=== PATIENT | male | born 1955 | race Caucasian/White ===

== ENCOUNTER 2023-04-23 08:06 | Outpatient (OUT) | payer MEDICARE, SELFPAY ==
[2023-04-23 08:51] LABS: Albumin Level 3.4 g/dL (3.4-5.0); Anion Gap 11.4; BUN Creatinine Ratio 19.2; Calcium 8.5 mg/dL (8.5-10.1); Carbon Dioxide 32.9 mmol/L (21.0-32.0); Chloride 102 mmol/L (98-107); Estimated GFR (African America 54 (>=60); Estimated GFR (Non-African Ame 44 (>=60); Glucose 103 mg/dL (74-106); Phosphorus 3.6 mg/dL (2.6-4.7); Potassium 4.3 mmol/L (3.5-5.1); Sodium 142 mmol/L (136-145)
== END 2023-04-23 08:07 ==
LOC: LAB 08:11
PROVIDERS: PCP Family Medicine; Visit Provider Internal Medicine
DX: E11.22 Type 2 diabetes mellitus with diabetic chronic kidney disease (principal); I12.9 Hypertensive chronic kidney disease with stage 1 through stage 4 chronic kidney disease, or unspecified chronic kidney disease; N18.30 Chronic kidney disease, stage 3 unspecified; N25.81 Secondary hyperparathyroidism of renal origin; D72.829 Elevated white blood cell count, unspecified; E87.6 Hypokalemia
CPT/HCPCS: 36415; 80069

== ENCOUNTER 2023-04-23 17:59 | Outpatient (RCR) | payer MEDICARE, SELFPAY | END 2023-05-18 23:59 | disposition home or self-care (01) | LOC: MM 17:59 | PROVIDERS: PCP Family Medicine; Visit Provider Internal Medicine | DX: Z51.81 Encounter for therapeutic drug level monitoring (principal); Z79.01 Long term (current) use of anticoagulants; I48.91 Unspecified atrial fibrillation | CPT/HCPCS: 85610; G0463 ==

== ENCOUNTER 2023-05-14 09:41 | Outpatient (OUT) | payer MEDICARE, MEDICAID, SELFPAY ==
--- NOTE | 2023-05-14 09:56 | XR_ITS ---
The [address] [address] Patient Name: ADWOA PORTER MRN: [id number] date: 1955 Sex: M Assigned Patient Location: Current Patient Location: LAB Accession/Order Number: [id number] Exam Date: 05/14/2023 09:56 Report Date: 05/14/2023 14:06 At the request of: JERSON KAMINSKI Procedure: XR foot RT min 3V EXAM: XR foot RT min 3V HISTORY: RIGHT FOOT PAIN COMPARISON: 03/27/2023 TECHNIQUE: 3 views of the right foot were obtained. FINDINGS: Focal cortical bone erosion or destruction is seen involving the medial aspect of the proximal phalanx of the great toe distally. This was not apparent in the prior study. There is no apparent acute fracture or dislocation. There is mild narrowing of the interphalangeal joints at the great toe. The remainder the joint spaces are intact. Small osteophytes arise from the dorsal aspect of the talus and midfoot. A small osteophyte can be seen at the insertion site of the Achilles tendon. Some improvement of the soft tissue swelling of the distal foot is noted. Arteriovascular calcifications are seen in the ankle and foot, raising the possibility of diabetes. IMPRESSION: Focal cortical bone erosion or destruction is seen involving the distal aspect of the proximal phalanx of the great toe. This was not present in the prior study and is compatible with osteomyelitis. No foreign body is identified. Mild degenerative changes are present. Interval improvement of soft tissue swelling of the mid and distal foot. Arteriovascular calcifications are seen in the ankle and foot. Electronically authenticated by: JORGE SCOTT Date: 05/14/2023 14:06
== END 2023-05-14 09:42 | disposition home or self-care (01) ==
LOC: WC 09:41
PROVIDERS: PCP Internal Medicine; Visit Provider Physician Assistant
DX: E11.21 Type 2 diabetes mellitus with diabetic nephropathy (principal); L97.512 Non-pressure chronic ulcer of other part of right foot with fat layer exposed; S80.811A Abrasion, right lower leg, initial encounter; M79.671 Pain in right foot; M86.171 Other acute osteomyelitis, right ankle and foot; D64.9 Anemia, unspecified; I70.8 Atherosclerosis of other arteries; I42.9 Cardiomyopathy, unspecified; J44.9 Chronic obstructive pulmonary disease, unspecified; R60.1 Generalized edema; I10 Essential (primary) hypertension; E03.9 Hypothyroidism, unspecified; N17.9 Acute kidney failure, unspecified; G90.09 Other idiopathic peripheral autonomic neuropathy; I73.9 Peripheral vascular disease, unspecified; J96.11 Chronic respiratory failure with hypoxia
CPT/HCPCS: 73630; G0463

== ENCOUNTER 2023-05-14 11:42 | Outpatient (OUT) | payer MEDICARE, MEDICAID, SELFPAY ==
[2023-05-14 12:55] LABS: Anion Gap 12.8; BUN Creatinine Ratio 17.1; Calcium 8.6 mg/dL (8.5-10.1); Carbon Dioxide 28.9 mmol/L (21.0-32.0); Chloride 101 mmol/L (98-107); Estimated GFR (African America 47 (>=60); Estimated GFR (Non-African Ame 39 (>=60); Glucose 187 mg/dL (74-106); Potassium 3.7 mmol/L (3.5-5.1); Sodium 139 mmol/L (136-145)
== END 2023-05-14 11:43 | disposition home or self-care (01) ==
LOC: LAB 11:49
PROVIDERS: PCP Family Medicine; Visit Provider Physician Assistant
DX: M86.9 Osteomyelitis, unspecified (principal); L97.519 Non-pressure chronic ulcer of other part of right foot with unspecified severity
CPT/HCPCS: 36415; 80048

== ENCOUNTER 2023-05-23 15:36 | Outpatient (RCR) | payer MEDICARE, MEDICAID, SELFPAY | END 2023-06-18 16:48 | disposition home or self-care (01) | LOC: MM 15:36 | PROVIDERS: PCP Internal Medicine; Visit Provider Internal Medicine | DX: Z51.81 Encounter for therapeutic drug level monitoring (principal); Z79.01 Long term (current) use of anticoagulants; I48.91 Unspecified atrial fibrillation ==

== ENCOUNTER 2023-05-24 11:51 | Inpatient (IN) | payer MEDICARE, SELFPAY ==
[2023-05-24] VITALS (24 sets, daily range): BP systolic 97–122; BP diastolic 51–80; PULSE 76–97; RESP 16–48; TEMP 36.6–37; O2SAT 90–98; BMI 33.5; BMI 34.8
--- NOTE | 2023-05-24 12:13 | ECG_ITS ---
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
--- NOTE | 2023-05-24 12:13 | XR_ITS ---
The [address] [address] Patient Name: ADWOA PORTER MRN: [id number] date: 1955 Sex: M Assigned Patient Location: ER Current Patient Location: ER Accession/Order Number: [id number] Exam Date: 05/24/2023 12:22 Report Date: 05/24/2023 12:39 At the request of: PAMELA CHAVEZ Procedure: XR chest 1V EXAMINATION: XR chest 1V HISTORY: SOB ; shortness of breath COMPARISON: XR chest 03/26/2023 FINDINGS: LUNGS: Mild haziness within lung bases with indistinctness of the bronchovascular markings. VASCULATURE: No increased pulmonary vasculature. PLEURA: No pneumothorax, effusion, or pleural thickening. CARDIAC: Stable, borderline cardiomegaly. Stable cardiac pacer. MEDIASTINUM: No visible mass or adenopathy. BONES: No fracture or visible bone lesion. OTHER: Negative. IMPRESSION: 1. Mild bibasilar infiltrates versus atelectasis; similar to prior study. Electronically authenticated by: BIANCA STUART Date: 05/24/2023 12:39
--- NOTE | 2023-05-24 12:14 | ED_ITS ---
HPI - SOB/Dyspnea General Chief Complaint: Shortness of Breath/Dyspnea Stated Complaint: SHORTNESS OF BREATH Time Seen by Provider: 05/24/23 12:10 Source: patient Mode of arrival: Wheelchair Limitations: no limitations History of Present Illness HPI Narrative: 67-year-old male presents for shortness of breath and weight gain. He states he's put on about 20 pounds in the last week. He claims to be taking all his m edications. He thinks [place] for fluid. He is not complaining of chest pain or fever. No vomiting or diarrhea. Exertion makes his shortness of breath worse. Related Data Home Medications Medication Instructions Recorded Confirmed amoxicillin 875 mg-potassium tab 05/24/23 clavulanate 125 mg tablet aspirin 81 mg tablet,delayed 81 mg PO DAILY 05/24/23 05/24/23 release (Adult Low Dose Aspirin) atorvastatin 80 mg tablet mg 05/24/23 carvedilol 25 mg tablet mg 05/24/23 dapagliflozin 10 mg tablet mg 05/24/23 (Farxiga) digoxin 125 mcg (0.125 mg) tablet 05/24/23 furosemide 80 mg tablet mg 05/24/23 gabapentin 400 mg capsule mg 05/24/23 hydrocodone 5 mg-acetaminophen 325 tab 05/24/23 mg tablet isosorbide dinitrate 20 mg tablet mg 05/24/23 levothyroxine 50 mcg tablet mcg 05/24/23 spironolactone 25 mg tablet mg 05/24/23 Allergies Allergy/AdvReac Type Severity Reaction Status Date / Time No Known Drug Allergies Allergy Verified 05/24/23 12:06 Review of Systems ROS Narrative A ten point review of systems is negative except as noted above. Constitutional Reports: change in weight Cardiovascular Reports: swelling of feet/ankles and shortness of breath with exertion Respiratory Reports: shortness of breath Exam Narrative Exam Narrative: Nurses note and vital signs reviewed and patient is not hypoxic. General: The patient appears well and it is speaking in full sentences. Skin: Warm, dry, no pallor noted. There is no rash noted. Head: Normocephalic, atraumatic Eye: Normal conjunctiva, no drainage Ears, Nose, Mouth, and Throat: oral mucosa is moist. Nares patent. Cardiovascular: Regular Rate and Rhyth respiratory:patient is in no distress, breath sounds are distant bilaterally. Back: non-tender GI: nontender, abdominal wall is edematous Musculoskeletal: The patient has eyelid ankle edema. Neurological: A&O, normal speech Psychiatric: Cooperative Constitutional Vital Signs - 24 hr 05/24/23 12:06 05/24/23 12:18 05/24/23 12:46 Temperature 98.5 F Pulse Rate Pulse Rate [Monitor] 94 H Respiratory Rate 18 Blood Pressure Blood Pressure [Left Arm] 97/80 H Pulse Oximetry 98 94 L 96 Oxygen Delivery Method Room Air Room Air Nasal Cannula Oxygen Delivery Flow Rate 3 05/24/23 11:59 05/24/23 12:00 05/24/23 12:38 Temperature Pulse Rate 85 85 Pulse Rate [Monitor] Respiratory Rate 22 48 H 18 Blood Pressure 97/80 H 111/68 Blood Pressure [Left Arm] Pulse Oximetry 91 L 97 Oxygen Delivery Method Oxygen Delivery Flow Rate 05/24/23 12:38 05/24/23 13:01 05/24/23 13:30 Temperature Pulse Rate 85 85 85 Pulse Rate [Monitor] Respiratory Rate 25 H 21 16 Blood Pressure 111/68 120/51 H 116/70 Blood Pressure [Left Arm] Pulse Oximetry 94 L 97 95 Oxygen Delivery Method Oxygen Delivery Flow Rate Course Vital Signs Vital signs: Vital Signs Pulse Rate 85 05/24/23 11:59 Respiratory Rate 22 05/24/23 11:59 Pulse Oximetry 91 L 05/24/23 11:59 Temperature 98.5 F 05/24/23 12:06 Pulse Rate 85 05/24/23 13:30 Respiratory Rate 16 05/24/23 13:30 Blood Pressure 116/70 05/24/23 13:30 Pulse Oximetry 95 05/24/23 13:30 Oxygen Delivery Method Nasal Cannula 05/24/23 12:46 Oxygen Delivery Flow Rate 3 05/24/23 12:46 MDM - SOB/Dyspnea MDM Narrative Medical decision making narrative: the patient reports a 20 pound weight gain but the chest x-ray does not show congestive heart failure. His BUN and creatinine are elevated above the baseline creatinine of 2.75 today. These findings are inconsistent. He'll be admitted and the case is discussed with the admitting physician, Dr. Mckenna. Findings are also discussed with the patient. chest x-ray per radiologist suggested atelectasis versus infiltrates but I do not suspect pneumonia in this patient clinically. Differential Diagnosis Differential diagnosis: Likely acute exacerbation of chronic obstructive airways disease, congestive heart failure and community acquired pneumonia Lab Data Attestation: I reviewed the patient's lab results. Labs: Lab Results 05/24/23 Range/Units 12:16 WBC 12.0 H (4.0-11.0) 10^3/uL RBC 4.37 L (4.70-6.10) 10^6/uL Hgb 12.7 L (14.0-18.0) g/dL Hct 38.4 L (42.0-54.0) % MCV 87.9 (80.0-94.0) fL MCH 29.1 (25.9-34.0) pg MCHC 33.1 (29.9-35.2) g/dL RDW 15.8 H (11.0-15.0) % Plt Count 204 (150-450) 10^3/uL MPV 10.0 (9.5-13.5) fL Neut % (Auto) 84.1 H (43.0-75.0) % Lymph % (Auto) 8.6 L (20.5-60.0) % [place] % (Auto) 4.4 (1.7-12.0) % Eos % (Auto) 2.4 (0.9-7.0) % Baso % (Auto) 0.2 (0.2-2.0) % Neut # (Auto) 10.1 H (1.4-6.5) 10^3/uL Lymph # (Auto) 1.0 L (1.2-3.8) 10^3/uL [place] # (Auto) 0.5 (0.3-0.8) 10^3/uL Eos # (Auto) 0.3 (0.0-0.7) 10^3/uL Baso # (Auto) 0.0 (0.0-0.1) 10^3/uL Abs Immat Gran (auto) 0.04 H (0.00-0.03) 10^3/uL Imm/Tot Granulo (auto) 0.3 (0.0-0.5) % Sodium 136 (136-145) mmol/L Potassium 3.9 (3.5-5.1) mmol/L Chloride 99 (98-107) mmol/L Carbon Dioxide 26.5 (21.0-32.0) mmol/L Anion Gap 14.4 BUN 38.0 H (7.0-18.0) mg/dL Creatinine 2.75 H (0.70-1.30) mg/dL Est GFR ( Amer) 28 L (>=60) Est GFR (Non-Af Amer) 23 L (>=60) BUN/Creatinine Ratio 13.8 Glucose 163 H (74-106) mg/dL Calcium 8.1 L (8.5-10.1) mg/dL Troponin I High Sens 26.8 (4.0-76.1) pg/mL NT-Pro-B Natriuret Pep 54770.0 H* (<=900.0) pg/mL ECG Data Attestation: I personally reviewed and interpreted this ECG as follows: ( EKG on my interpretation shows a rate of 85 and no acute findings) Discharge Plan Discharge Chief Complaint: Shortness of Breath/Dyspnea Clinical Impression: Acute kidney injury Patient Disposition: Admitted As Inpatient Time of Disposition Decision: 14:14 Condition: Good
[2023-05-24 12:30] LABS: Basophils Percent Auto 0.2 % (0.2-2.0); Eosinophils Absolute Auto 0.3 10^3/uL (0.0-0.7); Eosinophils Percent Auto 2.4 % (0.9-7.0); Hematocrit 38.4 % (42.0-54.0); Hemoglobin 12.7 g/dL (14.0-18.0); Immature Granulocytes Abs Auto 0.04 10^3/uL (0.00-0.03); Immature Granulocytes Pct Auto 0.3 % (0.0-0.5); Lymphocytes Percent Auto 8.6 % (20.5-60.0); Mean Corpuscular HGB Conc 33.1 g/dL (29.9-35.2); Mean Corpuscular Hemoglobin 29.1 pg (25.9-34.0); Mean Corpuscular Volume 87.9 fL (80.0-94.0); Monocytes Absolute Auto 0.5 10^3/uL (0.3-0.8); Monocytes Percent Auto 4.4 % (1.7-12.0); Neutrophils Absolute Auto 10.1 10^3/uL (1.4-6.5); Neutrophils Percent Auto 84.1 % (43.0-75.0); Platelet Count 204 10^3/uL (150-450); Red Blood Count 4.37 10^6/uL (4.70-6.10); Red Cell Distribution Width 15.8 % (11.0-15.0)
[2023-05-24 12:51] LABS: Anion Gap 14.4; BUN Creatinine Ratio 13.8; Calcium 8.1 mg/dL (8.5-10.1); Carbon Dioxide 26.5 mmol/L (21.0-32.0); Chloride 99 mmol/L (98-107); Estimated GFR (African America 28 (>=60); Estimated GFR (Non-African Ame 23 (>=60); Glucose 163 mg/dL (74-106); Potassium 3.9 mmol/L (3.5-5.1); Sodium 136 mmol/L (136-145); Troponin I High Sensitivity 26.8 pg/mL (4.0-76.1)
[2023-05-24 14:48] LABS: Digoxin 1.1 ng/mL (0.9-2.0)
[2023-05-24] MEDS: HYDROCODONE/ACETAMINOPHEN 5-325 MG TABLET 1 TAB PO (17:45)
[2023-05-24] MEDS: FUROSEMIDE 40 MG/4 ML VIAL IVP (17:45)
[2023-05-24] MEDS: ENOXAPARIN SODIUM 40 MG/0.4 ML SYRINGE SUBQ (17:45)
[2023-05-24] MEDS: GABAPENTIN 400 MG CAPSULE PO (17:50)
[2023-05-24] MEDS: CARVEDILOL 25 MG TABLET PO (17:50)
[2023-05-24 18:43] LABS: Bilirubin Urine NEGATIVE (NEGATIVE); Blood Urine NEGATIVE (NEGATIVE); Clarity Urine CLEAR (CLEAR); Color Urine YELLOW (YELLOW); Glucose Urine UA 500 mg/dL (NEGATIVE); Ketones Urine NEGATIVE (NEGATIVE); Leukocyte Esterase Urine NEGATIVE (NEGATIVE); Nitrite Urine NEGATIVE (NEGATIVE); Protein Urine NEGATIVE (NEG/TRACE); Urobilinogen Urine 0.2 EU/dL (0.2-1.0)
[2023-05-24 18:45] LABS: Urine Microscopic Indicated NO
--- NOTE | 2023-05-24 21:24 | RESP.RT ---
Sp02 97% on 4L nasal cannula. Decreased down to 3L. Pt wears 3L at home.
[2023-05-24] MEDS: ATORVASTATIN CALCIUM 40 MG TABLET 80 MG PO (21:28)
[2023-05-24 22:22] LABS: Glucometer 149 mg/dL (74-106)
[2023-05-25] VITALS (18 sets, daily range): BP systolic 111–135; BP diastolic 69–86; PULSE 79–100; RESP 18–20; TEMP 36.1–36.6; O2SAT 92–98; BMI 35.2
[2023-05-25] MEDS: HYDROCODONE/ACETAMINOPHEN 5-325 MG TABLET 1 TAB PO ×3 (01:26→21:22)
[2023-05-25 05:32] LABS: Basophils Absolute Auto 0.1 10^3/uL (0.0-0.1); Basophils Percent Auto 0.6 % (0.2-2.0); Eosinophils Absolute Auto 0.4 10^3/uL (0.0-0.7); Eosinophils Percent Auto 3.1 % (0.9-7.0); Hematocrit 40.1 % (42.0-54.0); Hemoglobin 12.6 g/dL (14.0-18.0); Immature Granulocytes Abs Auto 0.06 10^3/uL (0.00-0.03); Immature Granulocytes Pct Auto 0.5 % (0.0-0.5); Lymphocytes Percent Auto 16.7 % (20.5-60.0); Mean Corpuscular HGB Conc 31.4 g/dL (29.9-35.2); Mean Corpuscular Hemoglobin 28.1 pg (25.9-34.0); Mean Corpuscular Volume 89.3 fL (80.0-94.0); Mean Platelet Volume 9.7 fL (9.5-13.5); Monocytes Absolute Auto 0.9 10^3/uL (0.3-0.8); Monocytes Percent Auto 7.3 % (1.7-12.0); Neutrophils Absolute Auto 8.5 10^3/uL (1.4-6.5); Neutrophils Percent Auto 71.8 % (43.0-75.0); Platelet Count 201 10^3/uL (150-450); Red Blood Count 4.49 10^6/uL (4.70-6.10); Red Cell Distribution Width 15.9 % (11.0-15.0); White Blood Count 11.8 10^3/uL (4.0-11.0)
[2023-05-25 05:49] LABS: Anion Gap 10.7; BUN Creatinine Ratio 17.9; Calcium 8.4 mg/dL (8.5-10.1); Carbon Dioxide 30.9 mmol/L (21.0-32.0); Chloride 97 mmol/L (98-107); Estimated GFR (African America 34 (>=60); Estimated GFR (Non-African Ame 28 (>=60); Glucose 116 mg/dL (74-106); Potassium 3.6 mmol/L (3.5-5.1); Sodium 135 mmol/L (136-145)
--- NOTE | 2023-05-25 06:00 | XR_ITS ---
The [address] [address] Patient Name: ADWOA PORTER MRN: [id number] date: 1955 Sex: M Assigned Patient Location: Current Patient Location: Accession/Order Number: [id number] Exam Date: 05/25/2023 06:10 Report Date: 05/25/2023 08:11 At the request of: SAMY CRAFT Procedure: XR chest 2V PROCEDURE: XR chest 2V DATE: 05/25/2023 5:10 AM CDT COMPARISONS: 05/24/2023 CLINICAL INDICATION: 67 years Male chf FINDINGS: The heart is moderately enlarged. Electronic cardiac device is in stable position. There is slight diffuse increased interstitial markings throughout all lung lyles similar to previous exam. Some of this could represent some scattered chronic lung changes. Some of this likely represents some interstitial fluid due to congestion. There is no definite evidence of pleural effusion on today's chest radiograph. There is no evidence of pneumothorax IMPRESSION: Chest shows findings suggestive of mild congestive changes Electronically authenticated by: ROMAN LEON Date: 05/25/2023 08:11
[2023-05-25] MEDS: LEVOTHYROXINE SODIUM 25 MCG TABLET 50 MCG PO (06:24)
[2023-05-25] MEDS: FUROSEMIDE 40 MG/4 ML VIAL IVP ×2 (06:25→18:07)
[2023-05-25] MEDS: GABAPENTIN 400 MG CAPSULE PO ×2 (06:25→18:07)
[2023-05-25] MEDS: CANAGLIFLOZIN 100 MG TABLET 300 MG PO (08:41)
[2023-05-25] MEDS: SPIRONOLACTONE 25 MG TABLET PO (08:41)
[2023-05-25] MEDS: CARVEDILOL 25 MG TABLET PO ×2 (08:41→16:37)
[2023-05-25] MEDS: ISOSORBIDE DINITRATE 20 MG TABLET PO ×2 (08:42→16:37)
[2023-05-25] MEDS: ASPIRIN 81 MG TABLET.DR PO (08:42)
--- NOTE | 2023-05-25 08:50 | PC.NURSE ---
WOUND CONSULT: Patient known to wound center seen today inpatient for multiple wounds. Unable to take photos today due to equipment/software issues. Patient has healing areas on right great toe and right second toe that are treated with betadine and gauze. Continue this treatment plan until next wound care visit. Patient's right skin has improved greatly since last outpatient visit. Almost completely epithelialized, will continue to cover with xeroform daily until next wound care visit. Patient reports left hand wounds are from toribio sustained from grabbing a cast iron skillet that was hot. Patient has open wound on left index finger that measures 3.8cmx1.8cm. Dry, pink wound bed. Has small open scabbed area on left thumb and left 3rd finger. All areas treated with medihoney gel and bandaids. Instructed patient to keep hands clean. If after washing hands bandages become wet, instructed to change them with dry dressings. Reported to DEE Boles. She will place orders in chart. Updated patient that outpatient appointment is May 29 @ 9:30AM
--- NOTE | 2023-05-25 09:31 | SWNOTE1 ---
SW met with pt to discuss dc needs. Pt lives at home with his girlfriend. He uses a canes to get around. Pt is current with [facility] , the nurse comes in to check on his legs. Pt does wear a home cpap at night, but does not wear home oxygen. At this time pt denies any concerns/needs for discharge. SW to follow as needed.
--- NOTE | 2023-05-25 11:28 | CM.NOTE ---
Rounds made with Dr. Mckenna, no discharge today. Pt has [facility] and is current with them. PT and OT to evaluate pt today.
--- NOTE | 2023-05-25 11:53 | PM.HP ---
H&P: HPI History of Present Illness Chief complaint: SOB Narrative: 67 y/o male to ER with SOB. History of CHF and EF in December 2022 was 15%. Reports taking all medication daily. Increased SOB over past few days. Weighed self and up 20 pounds in past few weeks. Increased edema in legs. Continued SOB and to ER. BNP elevated and labs show SHIRA. Chest x-ray negative. Admitted for treatment. Started IV lasix and resumed home medication. Feels better overnight and less SOB. Review of Systems ROS Constitutional Denies: fever, chills or night sweats Cardiovascular Reports: edema; Denies: chest pain or palpitations Respiratory Reports: shortness of breath; Denies: cough or wheezing Gastrointestinal Denies: abdominal pain, nausea, vomiting or diarrhea Genitourinary Denies: painful urination [facility] Medical History (Updated 05/25/23 @ 08:55 by Lowell Mckenna MD) Meds Home Medications and Allergies Home Medications Medication Instructions Recorded Confirmed Type amoxicillin 875 mg-potassium 1 tab PO Q12H 05/24/23 05/24/23 History clavulanate 125 mg tablet aspirin 81 mg tablet,delayed 81 mg PO DAILY 05/24/23 05/24/23 History release (Adult Low Dose Aspirin) atorvastatin 80 mg tablet 80 mg PO .QD 05/24/23 05/24/23 History carvedilol 25 mg tablet 25 mg PO Q12H 05/24/23 05/24/23 History dapagliflozin 10 mg tablet 10 mg PO DAILY 05/24/23 05/24/23 History (Farxiga) digoxin 125 mcg (0.125 mg) tablet 0.125 mg PO QDAY 05/24/23 05/24/23 History furosemide 80 mg tablet 80 mg PO QAM 05/24/23 05/24/23 History gabapentin 400 mg capsule 400 mg PO Q12H 05/24/23 05/24/23 History hydrocodone 5 mg-acetaminophen 325 1 tab PO Q8H PRN pain, moderate 05/24/23 05/24/23 History mg tablet isosorbide dinitrate 20 mg tablet 20 mg PO BIDWM 05/24/23 05/24/23 History levothyroxine 50 mcg tablet 50 mcg PO .ACB 05/24/23 05/24/23 History spironolactone 25 mg tablet 25 mg PO QAM 05/24/23 05/24/23 History Allergies Allergy/AdvReac Type Severity Reaction Status Date / Time No Known Drug Allergies Allergy Verified 05/24/23 12:06 Exam Constitutional Vital Signs - 24 hr 05/24/23 12:06 05/24/23 12:18 05/24/23 12:46 Temperature 98.5 F Pulse Rate Pulse Rate [Monitor] 94 H Respiratory Rate 18 Blood Pressure Blood Pressure [Left Arm] 97/80 H Pulse Oximetry 98 94 L 96 Oxygen Delivery Method Room Air Room Air Nasal Cannula Oxygen Delivery Flow Rate 3 05/24/23 11:59 05/24/23 12:00 05/24/23 12:38 Temperature Pulse Rate 85 85 Pulse Rate [Monitor] Respiratory Rate 22 48 H 18 Blood Pressure 97/80 H 111/68 Blood Pressure [Left Arm] Pulse Oximetry 91 L 97 Oxygen Delivery Method Oxygen Delivery Flow Rate 05/24/23 12:38 05/24/23 13:01 05/24/23 13:30 Temperature Pulse Rate 85 85 85 Pulse Rate [Monitor] Respiratory Rate 25 H 21 16 Blood Pressure 111/68 120/51 H 116/70 Blood Pressure [Left Arm] Pulse Oximetry 94 L 97 95 Oxygen Delivery Method Oxygen Delivery Flow Rate 05/24/23 13:30 05/24/23 14:00 05/24/23 14:30 Temperature Pulse Rate 85 87 Pulse Rate [Monitor] Respiratory Rate 21 18 Blood Pressure 116/70 112/65 122/80 H Blood Pressure [Left Arm] Pulse Oximetry 95 Oxygen Delivery Method Oxygen Delivery Flow Rate 05/24/23 14:39 05/24/23 14:40 05/24/23 14:53 Temperature 97.9 F Pulse Rate 76 87 85 Pulse Rate [Monitor] Respiratory Rate 44 H 32 H 18 Blood Pressure Blood Pressure [Left Arm] 108/60 Pulse Oximetry 94 L Oxygen Delivery Method Nasal Cannula Oxygen Delivery Flow Rate 4 05/24/23 14:53 05/24/23 14:50 05/24/23 15:00 Temperature Pulse Rate 97 H 85 Pulse Rate [Monitor] 85 Respiratory Rate 18 19 18 Blood Pressure Blood Pressure [Left Arm] Pulse Oximetry Oxygen Delivery Method Oxygen Delivery Flow Rate 05/24/23 15:10 05/24/23 15:53 05/24/23 17:45 Temperature Pulse Rate 85 85 Pulse Rate [Monitor] Respiratory Rate 20 Blood Pressure 115/73 Blood Pressure [Left Arm] Pulse Oximetry Oxygen Delivery Method Oxygen Delivery Flow Rate 05/24/23 17:52 05/24/23 20:08 05/24/23 21:10 Temperature Pulse Rate 85 85 Pulse Rate [Monitor] Respiratory Rate Blood Pressure Blood Pressure [Left Arm] Pulse Oximetry 97 Oxygen Delivery Method Nasal Cannula Oxygen Delivery Flow Rate 4 05/24/23 21:33 05/24/23 22:07 05/25/23 00:00 Temperature 98.6 F Pulse Rate 96 H 86 85 Pulse Rate [Monitor] Respiratory Rate 20 Blood Pressure Blood Pressure [Left Arm] 114/70 Pulse Oximetry 90 L Oxygen Delivery Method Nasal Cannula Oxygen Delivery Flow Rate 3 05/25/23 02:03 05/25/23 04:28 05/25/23 04:41 Temperature 97.3 F L Pulse Rate 85 86 Pulse Rate [Monitor] Respiratory Rate 20 Blood Pressure Blood Pressure [Left Arm] 126/81 H Pulse Oximetry 98 93 L Oxygen Delivery Method Nasal Cannula Nasal Cannula Oxygen Delivery Flow Rate 3 3 05/25/23 05:09 05/25/23 05:40 05/25/23 08:08 Temperature Pulse Rate 85 85 85 Pulse Rate [Monitor] Respiratory Rate Blood Pressure Blood Pressure [Left Arm] Pulse Oximetry Oxygen Delivery Method Oxygen Delivery Flow Rate 05/25/23 08:47 05/25/23 09:59 05/25/23 10:24 Temperature Pulse Rate 79 Pulse Rate [Monitor] Respiratory Rate Blood Pressure Blood Pressure [Left Arm] Pulse Oximetry 94 L 92 L Oxygen Delivery Method Room Air Nasal Cannula Oxygen Delivery Flow Rate 3 05/25/23 11:42 Temperature Pulse Rate 85 Pulse Rate [Monitor] Respiratory Rate Blood Pressure Blood Pressure [Left Arm] Pulse Oximetry Oxygen Delivery Method Oxygen Delivery Flow Rate Documenting provider has reviewed patient's vital signs: yes Common normals: no apparent distress, oriented x3 and alert HENMT Common normals: normocephalic Eye Common normals: PERRL and EOMs intact bilaterally Respiratory Common normals: clear to auscultation bilaterally Cardio Common normals: regular rate, regular rhythm, no gallops, no murmurs and no rub GI Common normals: Normal to inspection, nondistended, normoactive bowel sounds present and non-tender Extremity General: edema (1+bipedal edema) Results Labs Labs: Short CBC 05/24/23 05/25/23 Range/Units 12:16 04:50 WBC 12.0 H 11.8 H (4.0-11.0) 10^3/uL Hgb 12.7 L 12.6 L (14.0-18.0) g/dL Hct 38.4 L 40.1 L (42.0-54.0) % Plt Count 204 201 (150-450) 10^3/uL BMP 05/24/23 05/25/23 12:16 04:50 Sodium 136 135 L Potassium 3.9 3.6 Chloride 99 97 L Carbon Dioxide 26.5 30.9 BUN 38.0 H 42.0 H Creatinine 2.75 H 2.35 H Glucose 163 H 116 H Calcium 8.1 L 8.4 L Urine 05/24/23 Range/Units 18:30 Urine Color Yellow (YELLOW) Urine Clarity Clear (CLEAR) Urine pH 6.0 (5.0-9.0) Ur Specific [place] 1.020 (1.005-1.025) Urine Protein Negative (NEG/TRACE) mg/dL Urine Glucose (UA) 500 A (NEGATIVE) mg/dL Imaging Chest x-ray: Attestation: I have reviewed the pertinent imaging results. Assessment and Plan Assessment and Plan (1) Acute on chronic HFrEF (heart failure with reduced ejection fraction): (2) Acute kidney injury: (3) Type 2 diabetes mellitus with hyperglycemia: (4) Benign essential hypertension: (5) COPD (chronic obstructive pulmonary disease): (6) Paroxysmal atrial fibrillation: (7) CAD (coronary artery disease): (8) Anemia in chronic kidney disease: Plan Presented with weight gain and fluid overload. Continue IV lasix. Resume home medication. Repeat echo to assess EF. Consult cardiology. Start PT/OT for weakness. Will need 2-3 days in the hospital.
--- NOTE | 2023-05-25 11:54 | CM.NOTE ---
Important Message From Medicare discussed with pt, pt verbalizes understanding and signs paper. Original given to pt and copy placed on pt's chart.
[2023-05-25 12:50] LABS: SARS-CoV-2 Ag NEGATIVE (NEGATIVE)
[2023-05-25 14:26] LABS: SARS-CoV-2 NAA NOT DETECTED (NOT DETECTE)
[2023-05-25] MEDS: ENOXAPARIN SODIUM 40 MG/0.4 ML SYRINGE SUBQ (16:37)
--- NOTE | 2023-05-25 17:25 | CA_ITS ---
Patient: ADWOA PORTER Exam Date: 05/25/2023 : 1955 Gender:M Ordering : DR Lowell Mckenna . Admission #: [id number] Family : DR. JORGE ARROYO D.P.Anastacia Order #: [id number] CLICK HERE TO VIEW EXAM ECHOCARDIOGRAM REPORT PROCEDURE: CA ECHO LIMITED INDICATIONS: Cogestive heart failure, elevated BNP, AICD, hypertension, diabetes, COPD COMPARISON: None. DESCRIPTION: Limited ECHOCARDIOGRAM Real-time transthoracic echocardiography with 2D and M-mode performed. QUALITY: Technical quality was good. Limited echocardiogram per physician order. LEFT VENTRICLE: Moderate dilatation. Normal left ventricular wall thickness. Systolic function is severely reduced. LV EF: Severely reduced left ventricular ejection fraction, (10-15%). DIASTOLIC: ATRIAL SEPTUM: LEFT ATRIUM: Severe dilatation. RIGHT ATRIUM: Severe dilatation. RIGHT VENTRICLE: Moderate dilatation. Moderately reduced systolic function. Pacer wire present. TRICUSPID VALVE: Normal mobility and thickness. MITRAL VALVE: Mildly thickened with normal mobility. Mild mitral annular calcification. AORTIC VALVE: Normal trileaflet appearance. Normal leaflet mobility. AORTIC ROOT: Normal diameter [3.4 cm] and appearance. The ascending aorta is normal in size and measures 3.2 cm. PULMONIC VALVE: Normal thickness and mobility. PERICARDIUM: IVC: IVC is dilated (3.2 cm) with no collapse. PLEURA: CONCLUSION: 1. Moderately dilated left ventricle with severely reduced systolic function. LVEF is estimated at 10 to 15%. 2. Moderately dilated right ventricle with moderately reduced systolic function. 3. Severe biatrial dilatation. 4. Limited study performed with no Doppler interrogation as requested. Adult Echocardiography Procedure Report Left Ventricle LVEDD (3.7 - 5.6 cm): 6.54 cm LVESD (2.2 - 4.0 cm): 6.25 cm LVIVS thickness (0.6 - 1.2 cm): 0.78 cm LVPW thickness (0.5 - 1.0 cm): 0.85 cm LVOT Diameter 2.09 cm Left Atrium Left Atrium Systolic Dimension: 5.36 cm Mitral Valve Right Ventricle Aorta AO Root Diam: 3.40 cm Ascending Ao Diam: 3.19 cm Aortic Valve Tricuspid Valve Pulmonic Valve Right Atrium Dictated by: Shiv Stout M.D. on 05/25/2023 at 19:05 Approved by: Shiv Stout M.D. on 05/25/2023 at 19:08
[2023-05-25] MEDS: METOLAZONE 2.5 MG TABLET PO (18:07)
--- NOTE | 2023-05-25 18:30 | US_ITS ---
The [address] [address] Patient Name: ADWOA PORTER MRN: [id number] date: 1955 Sex: M Assigned Patient Location: MS Current Patient Location: MS Accession/Order Number: [id number] Exam Date: 05/25/2023 18:30 Report Date: 05/26/2023 01:35 At the request of: JOSE GALEANA Procedure: US venous doppler LE LT EXAMINATION: US venous doppler LE LT HISTORY: r/o DVT ; left leg swelling for 2 weeks COMPARISON: Ultrasound venous Doppler lower extremity left FINDINGS: REGION: Left leg THROMBI: None within deep system. COMPRESSIBILITY: Normal compressibility of deep system. FLOW: Normal waveform and antegrade flow between 5 and 20 cm/s. OTHER: Chronic occlusive thrombus within small saphenous vein. IMPRESSION: 1. No deep vein thrombus within the left lower extremity. 2. Grossly stable chronic superficial thrombus within small saphenous vein. Electronically authenticated by: BIANCA STUART Date: 05/26/2023 01:35
[2023-05-25 20:40] LABS: Glucometer 169 mg/dL (74-106)
[2023-05-25] MEDS: ATORVASTATIN CALCIUM 40 MG TABLET 80 MG PO (21:22)
[2023-05-26] VITALS (18 sets, daily range): BP systolic 116–142; BP diastolic 74–98; PULSE 83–99; RESP 16–20; TEMP 36.5–36.6; O2SAT 92–98
[2023-05-26] MEDS: FUROSEMIDE 40 MG/4 ML VIAL IVP ×3 (01:04→22:22)
[2023-05-26 06:10] LABS: Basophils Absolute Auto 0.1 10^3/uL (0.0-0.1); Basophils Percent Auto 0.6 % (0.2-2.0); Eosinophils Absolute Auto 0.4 10^3/uL (0.0-0.7); Eosinophils Percent Auto 3.6 % (0.9-7.0); Hematocrit 41.7 % (42.0-54.0); Hemoglobin 13.1 g/dL (14.0-18.0); Immature Granulocytes Abs Auto 0.05 10^3/uL (0.00-0.03); Immature Granulocytes Pct Auto 0.5 % (0.0-0.5); Lymphocytes Absolute Auto 1.8 10^3/uL (1.2-3.8); Mean Corpuscular HGB Conc 31.4 g/dL (29.9-35.2); Mean Corpuscular Hemoglobin 28.4 pg (25.9-34.0); Mean Corpuscular Volume 90.3 fL (80.0-94.0); Mean Platelet Volume 10.6 fL (9.5-13.5); Monocytes Absolute Auto 0.7 10^3/uL (0.3-0.8); Monocytes Percent Auto 6.7 % (1.7-12.0); Neutrophils Absolute Auto 7.4 10^3/uL (1.4-6.5); Neutrophils Percent Auto 71.6 % (43.0-75.0); Platelet Count 204 10^3/uL (150-450); Red Blood Count 4.62 10^6/uL (4.70-6.10); Red Cell Distribution Width 15.9 % (11.0-15.0); White Blood Count 10.3 10^3/uL (4.0-11.0)
[2023-05-26 06:25] LABS: Anion Gap 12.5; BUN Creatinine Ratio 16.4; Carbon Dioxide 28.8 mmol/L (21.0-32.0); Chloride 98 mmol/L (98-107); Estimated GFR (African America 31 (>=60); Estimated GFR (Non-African Ame 26 (>=60); Glucose 151 mg/dL (74-106); Potassium 3.3 mmol/L (3.5-5.1); Sodium 136 mmol/L (136-145)
[2023-05-26 06:26] LABS: Calcium 8.4 mg/dL (8.5-10.1)
[2023-05-26] MEDS: GABAPENTIN 400 MG CAPSULE PO ×2 (06:32→17:59)
[2023-05-26] MEDS: LEVOTHYROXINE SODIUM 25 MCG TABLET 50 MCG PO (06:32)
[2023-05-26] MEDS: CANAGLIFLOZIN 100 MG TABLET 300 MG PO (09:03)
[2023-05-26] MEDS: ASPIRIN 81 MG TABLET.DR PO (09:05)
[2023-05-26] MEDS: ISOSORBIDE DINITRATE 20 MG TABLET PO ×2 (09:05→16:12)
[2023-05-26] MEDS: SPIRONOLACTONE 25 MG TABLET PO (09:07)
[2023-05-26] MEDS: POTASSIUM CHLORIDE 10 MEQ ER TABLET PO ×2 (09:07→16:12)
[2023-05-26] MEDS: CARVEDILOL 25 MG TABLET PO ×2 (09:07→16:12)
--- NOTE | 2023-05-26 09:59 | P.PN_ITS ---
Progress Note: Subjective Subjective Interval history: Patient does feel overall better than the previous day Exam Constitutional Vital Signs, click to edit/add: Last Vital Signs Temp 97.7 F 05/26/23 05:42 Pulse 83 05/26/23 09:05 Resp 18 05/26/23 09:05 BP 142/93 H 05/26/23 05:42 Pulse Ox 98 05/26/23 05:42 O2 Del Method Home BIPAP / CPAP 05/26/23 05:42 O2 Flow Rate 3 05/25/23 20:30 Chest Common normals: inspection of chest normal Respiratory Common normals: normal respiratory effort and no retractions Auscultation: diminished lung sounds; no rales Cardio Common normals: regular rate and regular rhythm Extremity Common normals: abnormal to inspection (2+ edema bilateral lower extremities) Progress Note: Objective Labs Labs: Short CBC 05/26/23 Range/Units 04:25 WBC 10.3 (4.0-11.0) 10^3/uL Hgb 13.1 L (14.0-18.0) g/dL Hct 41.7 L (42.0-54.0) % Plt Count 204 (150-450) 10^3/uL BMP 05/26/23 04:25 Sodium 136 Potassium 3.3 L Chloride 98 Carbon Dioxide 28.8 BUN 41.0 H Creatinine 2.50 H Glucose 151 H Calcium 8.4 L Progress Note: A&P Assessment and Plan (1) Acute on chronic HFrEF (heart failure with reduced ejection fraction): (2) Acute kidney injury: (3) Type 2 diabetes mellitus with hyperglycemia: (4) Benign essential hypertension: (5) COPD (chronic obstructive pulmonary disease): (6) Paroxysmal atrial fibrillation: (7) CAD (coronary artery disease): (8) Anemia in chronic kidney disease: Plan Dyspnea secondary to acute combined congestive heart failure on top of chronic heart failure with reduced ejection fraction. Consultation from cardiology reviewed. Continue with current medical management. Significant dyspnea with any activity. Unable to discharge to home. Maintain current medical management over the next 2 to 3 to 8 days. Possible discharge tomorrow if diuresis continues to improve his shortness of breath. Hypokalemia-supplement Chronic kidney disease stage II exacerbated by above treatment. But needs to maintain. Unable to improve patient over the last 24 hours. He needs at least 1 more day and likely to of additional continuous medical therapy to improve his acute combined congestive heart failure.Maintain inpatient status
[2023-05-26] MEDS: ENOXAPARIN SODIUM 40 MG/0.4 ML SYRINGE SUBQ (16:12)
[2023-05-26] MEDS: ATORVASTATIN CALCIUM 40 MG TABLET 80 MG PO (20:28)
[2023-05-26] MEDS: HYDROCODONE/ACETAMINOPHEN 5-325 MG TABLET 1 TAB PO (20:28)
[2023-05-26] MEDS: ACETAMINOPHEN 500 MG TABLET 1000 MG PO (22:22)
[2023-05-27] VITALS (8 sets, daily range): BP systolic 111–120; BP diastolic 79–80; PULSE 85–89; RESP 18; TEMP 36.5; O2SAT 98
[2023-05-27 05:10] LABS: Basophils Absolute Auto 0.1 10^3/uL (0.0-0.1); Basophils Percent Auto 0.5 % (0.2-2.0); Eosinophils Absolute Auto 0.4 10^3/uL (0.0-0.7); Eosinophils Percent Auto 3.4 % (0.9-7.0); Hematocrit 39.1 % (42.0-54.0); Hemoglobin 12.4 g/dL (14.0-18.0); Immature Granulocytes Abs Auto 0.04 10^3/uL (0.00-0.03); Immature Granulocytes Pct Auto 0.4 % (0.0-0.5); Lymphocytes Percent Auto 18.4 % (20.5-60.0); Mean Corpuscular HGB Conc 31.7 g/dL (29.9-35.2); Mean Corpuscular Hemoglobin 28.5 pg (25.9-34.0); Mean Corpuscular Volume 89.9 fL (80.0-94.0); Mean Platelet Volume 11.9 fL (9.5-13.5); Neutrophils Absolute Auto 7.4 10^3/uL (1.4-6.5); Neutrophils Percent Auto 68.3 % (43.0-75.0); Platelet Count 164 10^3/uL (150-450); Red Blood Count 4.35 10^6/uL (4.70-6.10); Red Cell Distribution Width 15.9 % (11.0-15.0); White Blood Count 10.8 10^3/uL (4.0-11.0)
[2023-05-27] MEDS: GABAPENTIN 400 MG CAPSULE PO (05:22)
[2023-05-27] MEDS: LEVOTHYROXINE SODIUM 25 MCG TABLET 50 MCG PO (05:32)
[2023-05-27 05:39] LABS: Anion Gap 12.4; BUN Creatinine Ratio 17.9; Calcium 8.7 mg/dL (8.5-10.1); Chloride 98 mmol/L (98-107); Estimated GFR (African America 35 (>=60); Estimated GFR (Non-African Ame 29 (>=60); Glucose 135 mg/dL (74-106); Potassium 4.4 mmol/L (3.5-5.1); Sodium 135 mmol/L (136-145)
[2023-05-27] MEDS: FUROSEMIDE 40 MG/4 ML VIAL IVP (06:18)
[2023-05-27] MEDS: ASPIRIN 81 MG TABLET.DR PO (08:46)
[2023-05-27] MEDS: POTASSIUM CHLORIDE 10 MEQ ER TABLET PO (08:46)
[2023-05-27] MEDS: HYDROCODONE/ACETAMINOPHEN 5-325 MG TABLET 1 TAB PO (08:46)
[2023-05-27] MEDS: CANAGLIFLOZIN 100 MG TABLET 300 MG PO (08:46)
[2023-05-27] MEDS: SPIRONOLACTONE 25 MG TABLET PO (08:47)
[2023-05-27] MEDS: FUROSEMIDE 40 MG TABLET PO (08:47)
[2023-05-27] MEDS: CARVEDILOL 25 MG TABLET PO (08:47)
[2023-05-27] MEDS: ISOSORBIDE DINITRATE 20 MG TABLET PO (08:47)
--- NOTE | 2023-05-27 10:38 | P.DS_ITS ---
DS: Providers Provider Date of admission: 05/24/23 14:16 Primary care physician: VINNIE STEWART Consults: 05/24/23 Consult to Wound Care Routine Consulting Provider: Philip Van 05/24/23 17:25 Occupational Therapy Eval and Treat Routine Physical Therapy Eval and Treat Routine 05/25/23 11:52 Consult to Cardiology Routine Consulting Provider: Walt Chaidez DS: Diagnosis Discharge Diagnosis (1) Acute on chronic HFrEF (heart failure with reduced ejection fraction): (2) Acute kidney injury: (3) Type 2 diabetes mellitus with hyperglycemia: (4) Benign essential hypertension: (5) COPD (chronic obstructive pulmonary disease): (6) Paroxysmal atrial fibrillation: (7) CAD (coronary artery disease): (8) Anemia in chronic kidney disease: Plan Dyspnea secondary to acute combined congestive heart failure on top of chronic heart failure with reduced ejection fraction.? Significant dyspnea with any activity.? Hypokalemia Chronic kidney disease stage II exacerbated by above DS: Summary Hospital Course Hospital Course: Pt admitted with acute combined CHF - found to have acute combined CHF with reduced ef - last ef was 15%, now down to 10%. Cardiology consulted - adjusted meds. He feels better in the last 48 hours and feels comfortable with going home. if ambulating in room without significant hypoxia, will d/c to home on inc dose of diuretics. Follow up with PCP and Cardiology this week. Medications see d/c list Status at Discharge Functional status at discharge: uses cane/walker Overall status at discharge: patient is back to baseline Time Spent with Patient Time attestation: Total time spent providing and/or coordinating discharge services: Exam Constitutional Vital Signs, click to edit/add: Last Vital Signs Temp 97.7 F 05/27/23 05:53 Pulse 85 05/27/23 09:54 Resp 18 05/27/23 05:53 BP 111/80 H 05/27/23 08:47 Pulse Ox 98 05/27/23 05:53 O2 Del Method Home BIPAP / CPAP 05/27/23 05:53 O2 Flow Rate 3 05/26/23 21:13 Chest Common normals: inspection of chest normal Respiratory Common normals: normal respiratory effort and no use of accessory muscles Auscultation: rales (bases) Cardio Common normals: no JVD, regular rate and regular rhythm Extremity General: edema (1-2 plus - told is normal bfor him - maybe some early cellulitis - on AB - ) DS: Data Data Completed and Pending Labs on day of discharge: Labs from last 24 hours 05/27/23 05/27/23 04:30 04:00 WBC 10.8 RBC 4.35 L Hgb 12.4 L Hct 39.1 L MCV 89.9 MCH 28.5 MCHC 31.7 RDW 15.9 H Plt Count 164 MPV 11.9 Neut % (Auto) 68.3 Lymph % (Auto) 18.4 L [place] % (Auto) 9.0 Eos % (Auto) 3.4 Baso % (Auto) 0.5 Neut # (Auto) 7.4 H Lymph # (Auto) 2.0 [place] # (Auto) 1.0 H Eos # (Auto) 0.4 Baso # (Auto) 0.1 Abs Immat Gran (auto) 0.04 H Imm/Tot Granulo (auto) 0.4 Sodium 135 L Potassium 4.4 Chloride 98 Carbon Dioxide 29.0 Anion Gap 12.4 BUN 41.0 H Creatinine 2.29 H Est GFR ( Amer) 35 L Est GFR (Non-Af Amer) 29 L BUN/Creatinine Ratio 17.9 Glucose 135 H Calcium 8.7 Discharge Plan Discharge Disposition: Home, Self-Care Condition: Good Discharge Medications: New metolazone 2.5 mg Tablet 2.5 mg PO ONCE Qty: 30 11RF Continued atorvastatin 80 mg tablet 80 mg PO .QD carvedilol 25 mg tablet 25 mg PO Q12H amoxicillin-pot clavulanate 875-125 mg tablet 1 tab PO Q12H Rx Instructions: CONTINUOUS Farxiga 10 mg tablet 10 mg PO DAILY aspirin [Adult Low Dose Aspirin] 81 mg tablet,delayed release (DR/EC) 81 mg PO DAILY hydrocodone-acetaminophen 5-325 mg tablet 1 tab PO Q8H PRN (Reason: pain, moderate) gabapentin 400 mg capsule 400 mg PO Q12H spironolactone 25 mg tablet 25 mg PO QAM furosemide 80 mg tablet 80 mg PO QAM levothyroxine 50 mcg tablet 50 mcg PO .ACB isosorbide dinitrate 20 mg tablet 20 mg PO BIDWM digoxin 125 mcg (0.125 mg) tablet 0.125 mg PO QDAY Activity: increase activity as tolerated Diet: advance to your usual diet Patient Instructions: Acute Kidney Injury (DC) Coating Mixer Supervisor/Cloth Neutralizer Instructions: Discharge with [facility], phone number is [phone]. Forms: Portal Instructions Follow Up Appointments: Follow up with Dr Stewart in 1 week [phone] ; Keep already scheduled appt with cardiology on May 30 Discharge Date/Time: 05/27/23 12:43
--- NOTE | 2023-05-29 14:18 | CM.DCFOLLOWU ---
Person spoke with: Rey How are you feeling? Still short of breath had 2 pound weight gain in the last few days- pt has follow-up with physician in AM. Encouraged pt to give information to physician so they can adjust medications as needed. Pt has home oxygen and oxygen sats are not dropping. How is your pain? No pain Did you understand your discharge instructions? Yes Do you have any questions about your discharge instructions? No Were you given any prescriptions at discharge? Yes Were you able to get your prescriptions filled? Yes Do you understand how to take your medications as ordered? Yes Do you have any questions about your follow up appointment and do you plan to keep your follow up appointment? No scheduled tomorrow Is there anything else that you would like to discuss? No Questions/Comments/Concerns/Other:
== END 2023-05-27 12:43 | disposition home or self-care (01) | DRG 291 ==
LOC: ER 14:14 → MS 14:31
PROVIDERS: Family Medicine; Admitting Provider Family Medicine; Emergency Provider Emergency Medicine; PCP Family Medicine; Visit Provider Family Medicine
DX: I13.0 Hypertensive heart and chronic kidney disease with heart failure and stage 1 through stage 4 chronic kidney disease, or unspecified chronic kidney disease (principal); I50.23 Acute on chronic systolic (congestive) heart failure; N17.9 Acute kidney failure, unspecified; E11.22 Type 2 diabetes mellitus with diabetic chronic kidney disease; E11.65 Type 2 diabetes mellitus with hyperglycemia; N18.2 Chronic kidney disease, stage 2 (mild); J44.9 Chronic obstructive pulmonary disease, unspecified; I48.0 Paroxysmal atrial fibrillation; I25.10 Atherosclerotic heart disease of native coronary artery without angina pectoris; D63.1 Anemia in chronic kidney disease; E87.6 Hypokalemia; R06.00 Dyspnea, unspecified; Z79.82 Long term (current) use of aspirin; Z79.84 Long term (current) use of oral hypoglycemic drugs; Z79.890 Hormone replacement therapy; Z79.899 Other long term (current) drug therapy
CPT/HCPCS: 36415; 51798; 71045; 71046; 80048; 80162; 81003; 82948; 83880; 84484; 85025; 87635; 93005; 93308; 93971; 94761; 96372; 96374; 96376; 97162; 97165; 99285

== ENCOUNTER 2023-06-02 08:17 | Inpatient (IN) | payer MEDICARE, SELFPAY ==
[2023-06-02] VITALS (32 sets, daily range): BP systolic 111–154; BP diastolic 70–91; PULSE 82–91; RESP 14–22; TEMP 36.4–37.4; O2SAT 87–99; BMI 32.5; BMI 34.6
--- NOTE | 2023-06-02 08:21 | ED_ITS ---
HPI - SOB/Dyspnea General Chief Complaint: Shortness of Breath/Dyspnea Stated Complaint: shortness of breath Time Seen by Provider: 06/02/23 08:21 Source: patient and other Source comment: ems Mode of arrival: ambulance Limitations: altered mental status History of Present Illness HPI Narrative: Patient presents to emergency department complaining of shortness of breath. Patient was discharged from [facility] May 27 with a diagnosis of congestive heart failure exacerbation. He was seen by cardiology. Was started on metolazone. Plan follow-up with cardiology May 30. He missed that appointment. Patient has a known ejection fraction of 15%. He also has a history of chronic obstructive pulmonary disease and uses CPAP at home. He has complained of dyspnea increased in the last 2 days. He states he has been taking all of his medications. Pt is not on any steroids, or antibiotics. He denies any fever, or chills. He has noticed increased swelling to his lower extremities but not as bad as it was before. Patient takes blood thinners and has a history of frequent falls. He states he is using his walker at home. Patient lives at home with girlfriend who states that he is unable to care for himself. Patient denies any chest pain. He denies any abdominal pain. He is normally on 3 L nasal cannula at home. He denies any nausea, vomiting. He denies any diarrhea, constipation. He denies any abdominal pain. Denies any hematuria, dysuria. He has a history of chronic kidney disease. Related Data Home Medications Medication Instructions Recorded Confirmed amoxicillin 875 mg-potassium 1 tab PO Q12H 05/24/23 06/02/23 clavulanate 125 mg tablet aspirin 81 mg tablet,delayed 81 mg PO DAILY 05/24/23 06/02/23 release (Adult Low Dose Aspirin) atorvastatin 80 mg tablet 80 mg PO .QD 05/24/23 06/02/23 carvedilol 25 mg tablet 25 mg PO Q12H 05/24/23 06/02/23 dapagliflozin 10 mg tablet 10 mg PO DAILY 05/24/23 06/02/23 ([facility]) digoxin 125 mcg (0.125 mg) tablet 0.125 mg PO QDAY 05/24/23 06/02/23 furosemide 80 mg tablet 80 mg PO QAM 05/24/23 06/02/23 gabapentin 400 mg capsule 400 mg PO Q12H 05/24/23 06/02/23 hydrocodone 5 mg-acetaminophen 325 1 tab PO Q8H PRN pain, moderate 05/24/23 06/02/23 mg tablet isosorbide dinitrate 20 mg tablet 20 mg PO BIDWM 05/24/23 06/02/23 levothyroxine 50 mcg tablet 50 mcg PO .ACB 05/24/23 06/02/23 spironolactone 25 mg tablet 25 mg PO QAM 05/24/23 06/02/23 amitriptyline 25 mg tablet 25 mg PO .hs 06/02/23 06/02/23 bumetanide 2 mg tablet mg 06/02/23 cyanocobalamin (vitamin B-12) 1,000 mcg PO DAILY 06/02/23 06/02/23 1,000 mcg tablet,extended release hydralazine 50 mg tablet 50 mg PO Q8H 06/02/23 06/02/23 metolazone 2.5 mg tablet 2.5 mg PO DAILY 06/02/23 06/02/23 nitroglycerin 0.4 mg sublingual 0.4 mg sublingual Q5M PRN chest 06/02/23 06/02/23 tablet pain potassium chloride 10 mEq 10 meq PO DAILY 06/02/23 06/02/23 tablet,extended release sulfamethoxazole 800 1 tab PO Q12H 06/02/23 06/02/23 mg-trimethoprim 160 mg tablet warfarin 2.5 mg tablet 2.5 mg PO DAILY 06/02/23 06/02/23 Allergies Allergy/AdvReac Type Severity Reaction Status Date / Time No Known Drug Allergies Allergy Verified 05/24/23 12:06 Review of Systems ROS Status of ROS 10 or more systems reviewed and unremarkable except as noted in history and below [facility] Medical History Family History Mother Family history of CHF (congestive heart failure) Brother Family history of cancer Social History Within the past year, how often did you have a drink containing alcohol: never Within the past year, how often did you have six or more drinks on one occasion: never Score interpretation: A score less than 4 is consistent with normal alcohol consumption. 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 Known occupational exposures/hazards: No Highest level of school completed/degree received: high school graduate Do you want help with school or training: No Are you now , , , , never or living with a partner: living with partner In a typical week, how many times do you talk on the telephone with family, friends, or neighbors: 3 or more times per week How often do you get together with friends or relatives: 3 or more times per week How often do you attend holiness or episcopalian services: never Do you belong to any clubs or organizations such as holiness groups unions, fra[employer]ita or athletic groups, or school groups: no Total score: 2 Score interpretation: A score of greater than or equal to 2 indicates the lowest level of social isolation. Little interest or pleasure in doing things: not at all Feeling down, depressed, or hopeless: not at all Feel stressed/tense/nervous/anxious/difficulty sleeping: not at all Due to disability, difficulty making decisions: No Do you think of yourself as: straight/heterosexual Gender Identity: male Exam Narrative Exam Narrative: Nurses notes and vital signs reviewed and patient is not hypoxic 95% on 3LNC General: chronic ill, in no apparent distress. Skin: Warm, dry, no pallor noted. Diffuse ecchymosis and skin tears to bilateral arms. This ecchymosis to his entire abdomen and anterior chest wall, small ecchymosis to the left posterior ribs, multiple ecchymosis to bilateral lower extremities. Head: Normocephalic, atraumatic. Neck: Supple, non-tender. Eye: Pupils are equal, round and EOMI. No scleral icterus. Ears, Nose, Mouth, and Throat: TM clear, no posterior oropharynx erythema or nasal mucosal hypertrophy, uvula is mid-line Oral mucosa is dry Cardiovascular: paced without murmur, gallop or rub. Respiratory: No accessory muscle use or respiratory distress. Lungs crackles and rhonchi to the right lower lobe Chest Wall: no tenderness over ecchymoses, no crepitance Back: No midline thoracic or lumbar vertebral tenderness. No CVA tenderness Musculoskeletal: See skin, normal ROM, +2 lower extremity edema/swelling, multiple toe amputations. GI: Abdomen is soft, slight distended, mild tendern to llq, ascites, distant bowel sounds. No rebound, guarding, or rigidity noted. Neurological: A&O x4. No cranial nerve dysfunction observed. Moves all extremities. Psychiatric: Cooperative and interactive. Normal mood and affect. Constitutional Vital Signs, click to edit/add: Last Vital Signs Temp 97.6 F 06/03/23 05:00 Pulse 85 06/03/23 08:02 Resp 20 06/03/23 05:00 BP 122/74 H 06/03/23 05:00 Pulse Ox 94 L 06/03/23 05:00 O2 Del Method Nasal Cannula 06/03/23 05:00 O2 Flow Rate 2 06/03/23 05:00 Course Vital Signs Vital signs: Vital Signs Temperature 99.4 F 06/02/23 08:16 Pulse Rate 88 06/02/23 08:16 Respiratory Rate 18 06/02/23 08:16 Blood Pressure 154/85 H 06/02/23 08:16 Pulse Oximetry 87 L 06/02/23 08:16 Oxygen Delivery Method Room Air 06/02/23 08:16 Temperature 97.6 F 06/03/23 05:00 Pulse Rate 85 06/03/23 08:02 Respiratory Rate 20 06/03/23 05:00 Blood Pressure 122/74 H 06/03/23 05:00 Pulse Oximetry 94 L 06/03/23 05:00 Oxygen Delivery Method Nasal Cannula 06/03/23 05:00 Oxygen Delivery Flow Rate 2 06/03/23 05:00 MDM - SOB/Dyspnea MDM Narrative Medical decision making narrative: ABG was obtained and shows hypoxic ischemia otherwise or small hypercapnia and pH is normal. EKG shows a paced rhythm at 89 bpm. Patient was given a DuoNeb treatment on arrival to the emergency department which did not help his symptoms. He was subsequently given 2 mg of Bumex. He has urinated 415 mls. Patient has had some relief but not full relief. Chest x-ray showedvcongestion and infiltrate patient was started on Rocephin. wbc elevated. Because of the patient's frequent falls and multiple ecchymosis plus Coumadin and having tenderness to his abdomen is CT scan of the chest and abdomen were done. Imaging show injury but demonstrated ascites and pneumonia questioning aspiration. Since the patient had a recent hospitalization also he was started on Zosyn. Patient's kidney function test is worsened after metolazone. He needs to be admitted for slow and careful IV hydration and diuresis.Patient can be evaluated for paracentesis. He has multifactorial dyspnea. Patient will be discussed with Dr. Mata for admission. Differential Diagnosis Differential diagnosis: Likely congestive heart failure and community acquired pneumonia Medical Records Attestation: I reviewed the patient's medical records. Lab Data Attestation: I reviewed the patient's lab results. Labs: Lab Results 06/02/23 06/02/23 06/02/23 Range/Units 08:35 09:24 09:25 WBC 17.9 H (4.0-11.0) 10^3/uL RBC 4.46 L (4.70-6.10) 10^6/uL Hgb 12.5 L (14.0-18.0) g/dL Hct 37.9 L (42.0-54.0) % MCV 85.0 (80.0-94.0) fL MCH 28.0 (25.9-34.0) pg MCHC 33.0 (29.9-35.2) g/dL RDW 15.9 H (11.0-15.0) % Plt Count 194 (150-450) 10^3/uL MPV 10.3 (9.5-13.5) fL Neut % (Auto) 88.9 H (43.0-75.0) % Lymph % (Auto) 3.7 L (20.5-60.0) % [place] % (Auto) 5.8 (1.7-12.0) % Eos % (Auto) 0.6 L (0.9-7.0) % Baso % (Auto) 0.2 (0.2-2.0) % Neut # (Auto) 15.9 H (1.4-6.5) 10^3/uL Lymph # (Auto) 0.7 L (1.2-3.8) 10^3/uL [place] # (Auto) 1.0 H (0.3-0.8) 10^3/uL Eos # (Auto) 0.1 (0.0-0.7) 10^3/uL Baso # (Auto) 0.0 (0.0-0.1) 10^3/uL Abs Immat Gran (auto) 0.14 H (0.00-0.03) 10^3/uL Imm/Tot Granulo (auto) 0.8 H (0.0-0.5) % PT 19.6 H (9.0-11.6) sec INR 1.92 APTT 40.2 H* (22.3-36.2) sec Puncture Site Rr ABG pH 7.456 H (7.350-7.450) ABG pCO2 41.4 (35.0-45.0) mmHg ABG pO2 65.2 L (80.0-100.0) mmHg ABG HCO3 29.1 H (22.0-26.0) mmol/L ABG O2 Saturation 93.2 % ABG Base Excess 5.2 H (-2.0-2.0) mmol/L Callum Test Positive (POSITIVE) O2 Liters/Min 2 Sodium 134 L (136-145) mmol/L Potassium 3.1 L (3.5-5.1) mmol/L Chloride 93 L (98-107) mmol/L Carbon Dioxide 31.0 (21.0-32.0) mmol/L Anion Gap 13.1 BUN 56.0 H (7.0-18.0) mg/dL Creatinine 3.20 H (0.70-1.30) mg/dL Est GFR ( Amer) 24 L (>=60) Est GFR (Non-Af Amer) 19 L (>=60) BUN/Creatinine Ratio 17.5 Glucose 121 H (74-106) mg/dL Lactate 1.5 (0.4-2.0) mmol/L Calcium 8.5 (8.5-10.1) mg/dL Total Bilirubin 1.4 H (0.2-1.0) mg/dL AST 38 H (15-37) U/L ALT 29 (16-63) U/L Alkaline Phosphatase 134 H (46-116) U/L Troponin I High Sens 36.7 (4.0-76.1) pg/mL NT-Pro-B Natriuret Pep 84322.0 H* (<=900.0) pg/mL Total Protein 8.0 (6.4-8.2) g/dL Albumin 3.5 (3.4-5.0) g/dL Globulin 4.5 g/dL Albumin/Globulin Ratio 0.8 Digoxin 0.6 L (0.9-2.0) ng/mL ABG Data Attestation: I personally reviewed and interpreted this ABG as follows: ECG Data Attestation: I personally reviewed and interpreted this ECG as follows: Discharge Plan Discharge Chief Complaint: Shortness of Breath/Dyspnea Clinical Impression: Ascites, Acute kidney injury, Acute on chronic HFrEF (heart failure with reduced ejection fraction), Pneumonia Patient Disposition: Admitted As Inpatient Time of Disposition Decision: 12:13 Condition: Good Discharge Date/Time: 06/02/23 14:17
--- NOTE | 2023-06-02 08:31 | XR_ITS ---
[address] [address] Patient Name: ADWOA PORTER MRN: [id number] date: 1955 Sex: M Assigned Patient Location: ER Current Patient Location: ER Accession/Order Number: [id number] Exam Date: 06/02/2023 08:40 Report Date: 06/02/2023 08:59 At the request of: ANAMIKA REED Procedure: XR chest 1V EXAM: XR chest 1V HISTORY: Dyspnea COMPARISON: 05/24/2023 TECHNIQUE: Frontal view of the chest. FINDINGS: Diffuse bilateral interstitial prominence which may represent edema. Increased markings in the lower lobes bilaterally which may represent infiltrates. No pleural effusions. Cardiomegaly. Left-sided ICD. Thoracic spine spondylosis. XR/XR chest 1V IMPRESSION: Diffuse interstitial edema. Bilateral lower lobe infiltrates are not excluded. Cardiomegaly. Electronically authenticated by: PAOLA MYERS Date: 06/02/2023 08:59
--- NOTE | 2023-06-02 08:31 | ECG_ITS ---
[facility] Test Date: 2023-06-02 Pat Name: ADWOA PORTER Department: Room: - Gender: Male Blending Supervisor: : 1955 Requested By: [id number] Order Number: [id number] Reading MD: MIESHA LOCKE Measurements Intervals [place] Rate: 89 P: -78897 VT: -49046 QRS: 237 QRSD: 132 T: 45 QT: 402 QTc: 449 Interpretive Statements 26998 Electronic ventricular pacemaker 9120 atypical ECG Compared to ECG 05/24/2023 12:00:03 Myocardial infarct finding no longer present Right ventricular hypertrophy no longer present Electronically Signed On 06-02-2023 14:36:09 EDT by MIESHA LOCKE
--- NOTE | 2023-06-02 08:52 | PC.NURSE ---
Has multiple large bruises on lower ABD. Smaller area of bruises upper chest. Lower left back has bruise moderate in size
[2023-06-02] MEDS: IPRATROPIUM/ALBUTEROL SULFATE 3 ML AMPUL.NEB IH (09:08)
[2023-06-02 09:24] LABS: pH ABG 7.456 (7.350-7.450)
[2023-06-02 09:25] LABS: ABG PCO2 41.4 mmHg (35.0-45.0); Allen Test POSITIVE (POSITIVE); Base Excess ABG 5.2 mmol/L (-2.0-2.0); HCO3 ABG 29.1 mmol/L (22.0-26.0); Liters per Minute 2; O2 Mode NC; Oxygen Saturation ABG 93.2 %; PO2 ABG 65.2 mmHg (80.0-100.0); Puncture Site RR
[2023-06-02 09:52] LABS: Basophils Percent Auto 0.2 % (0.2-2.0); Eosinophils Absolute Auto 0.1 10^3/uL (0.0-0.7); Eosinophils Percent Auto 0.6 % (0.9-7.0); Hematocrit 37.9 % (42.0-54.0); Hemoglobin 12.5 g/dL (14.0-18.0); Immature Granulocytes Abs Auto 0.14 10^3/uL (0.00-0.03); Immature Granulocytes Pct Auto 0.8 % (0.0-0.5); Lymphocytes Absolute Auto 0.7 10^3/uL (1.2-3.8); Lymphocytes Percent Auto 3.7 % (20.5-60.0); Mean Platelet Volume 10.3 fL (9.5-13.5); Monocytes Percent Auto 5.8 % (1.7-12.0); Neutrophils Absolute Auto 15.9 10^3/uL (1.4-6.5); Neutrophils Percent Auto 88.9 % (43.0-75.0); Platelet Count 194 10^3/uL (150-450); Red Blood Count 4.46 10^6/uL (4.70-6.10); Red Cell Distribution Width 15.9 % (11.0-15.0); White Blood Count 17.9 10^3/uL (4.0-11.0)
[2023-06-02 09:59] LABS: Alanine Aminotransferase 29 U/L (16-63); Albumin Globulin Ratio 0.8; Albumin Level 3.5 g/dL (3.4-5.0); Alkaline Phosphatase 134 U/L (46-116); Anion Gap 13.1; Aspartate Amino Transferase 38 U/L (15-37); BUN Creatinine Ratio 17.5; Bilirubin Total 1.4 mg/dL (0.2-1.0); Calcium 8.5 mg/dL (8.5-10.1); Chloride 93 mmol/L (98-107); Estimated GFR (African America 24 (>=60); Estimated GFR (Non-African Ame 19 (>=60); Globulin 4.5 g/dL; Glucose 121 mg/dL (74-106); Potassium 3.1 mmol/L (3.5-5.1); Sodium 134 mmol/L (136-145)
[2023-06-02 10:06] LABS: Troponin I High Sensitivity 36.7 pg/mL (4.0-76.1)
--- NOTE | 2023-06-02 10:07 | CT_ITS ---
The [address] [address] Patient Name: ADWOA PORTER MRN: [id number] date: 1955 Sex: M Assigned Patient Location: ER Current Patient Location: ER Accession/Order Number: [id number] Exam Date: 06/02/2023 10:30 Report Date: 06/02/2023 11:12 At the request of: ANAMIKA REED Procedure: CT chest wo con CT chest wo con CLINICAL HISTORY: Dyspnea. Frequent falls on Coumadin. COMPARISON: 06/13/2022. CT CHEST TECHNIQUE: Noncontrast axial CT images obtained from lung apices through lung bases. Coronal and sagittal reconstructions performed. Dose reduction techniques were achieved by using automated exposure control and/or adjustment of mA and/or kV according to patient size and/or use of iterative reconstruction technique. CT CHEST FINDINGS: Lower thyroid unremarkable. No axillary adenopathy on the right. On the left there are a few increase in number of slightly prominent nodes up to 11 mm short axis, new from prior. There is asymmetric edema over the left chest without well-defined hematoma or collection seen. Thoracic spondylosis with no fracture or significant malalignment. Sternum is intact. There are several late subacute nearly healed right anterior rib deformities. No definite acute fracture is seen. Visualized upper abdomen with ascites. Fully evaluated on single ending machine operator CT from same date. Cardiomegaly with pacemaker/AICD. No pericardial effusion. Multiple scattered enlarged mediastinal nodes of up to 15 mm short axis pretracheal similar to 2021. Multiple similar sized scattered nodes. Multiple scattered groundglass and tiny nodular airspace opacities with mild endobronchial thickening at the lingula and left lower lobe and minimal in the right lung. Most consistent with infection versus aspiration. There is also diffuse pulmonary congestion with trace pleural effusions too little for drainage. No pneumothorax. CT/CT chest wo con IMPRESSION: Multiple scattered groundglass and nodular airspace opacities predominantly in the left lung with a tiny amount in the right lung with peribronchial thickening and could represent infection/granulomatous disease versus aspiration. Cardiomegaly with pulmonary congestion and trace pleural effusions. Also ascites in the upper abdomen. There is mediastinal adenopathy overall relatively similar to May 2022. Borderline left axillary adenopathy is new and uncertain significance. 3 month follow-up ultrasound. There is mild edema over the left lateral chest which could relate to recent injury/contusion but no well-defined hematoma. No definite fracture is seen. Electronically authenticated by: TAMMIE MEZA Date: 06/02/2023 11:12
[2023-06-02 10:09] LABS: INR 1.92; Prothrombin Time 19.6 sec (9.0-11.6)
[2023-06-02 10:11] LABS: Partial Thromboplastin Time 40.2 sec (22.3-36.2)
[2023-06-02 10:22] LABS: Lactate/Lactic Acid 1.5 mmol/L (0.4-2.0)
--- NOTE | 2023-06-02 10:38 | CT_ITS ---
The [address] [address] Patient Name: ADWOA PORTER MRN: [id number] date: 1955 Sex: M Assigned Patient Location: ER Current Patient Location: ER Accession/Order Number: [id number] Exam Date: 06/02/2023 10:30 Report Date: 06/02/2023 11:23 At the request of: ANAMIKA REED Procedure: CT abdomen pelvis wo con CT abdomen pelvis wo con CLINICAL HISTORY: falls, coumadin COMPARISON: None Available. TECHNIQUE: No IV contrast axial CT scan from lung bases through symphysis pubis. Lack of IV contrast limits evaluation of solid organs. Oral contrast was not administered. Coronal and sagittal reconstructed images generated. Dose reduction techniques were achieved by using automated exposure control and/or adjustment of mA and/or kV according to patient size and/or use of iterative reconstruction technique. FINDINGS: CT ABDOMEN FINDINGS: Liver and spleen normal in size. Normal-sized right adrenal gland. Left adrenal nodule similar to 2021 and probably representing adenoma. Gallbladder and pancreas unremarkable. Small calcification right mid to lower pole probably renal vascular or less likely nonobstructing calculus. No obstructing stones or hydronephrosis. Left renal cyst. Atherosclerotic aorta without aneurysm. GI tract nondilated without obstruction. Colonic diverticulosis. Evaluation for diverticulitis limited by presence of ascites. No free intraperitoneal air. Diffuse the body wall edema. Mild to moderate scattered retained stool in the colon. CT PELVIS FINDINGS: Prostatomegaly. Urinary bladder unremarkable. Small bilateral fatty inguinal hernias. Lumbar spondylosis with no fracture or significant malalignment. Pelvic rings and hip joints are intact. CT/CT abdomen pelvis wo con IMPRESSION: No acute traumatic abnormality. Evidence of fluid overload with moderate ascites and diffuse deep body wall edema No bowel obstruction or free air. Colonic diverticulosis. Scattered retained stool in the colon. Electronically authenticated by: TAMMIE MEZA Date: 06/02/2023 11:23
[2023-06-02] MEDS: BUMETANIDE 1 MG/4 ML VIAL 2 MG IVP (10:42)
[2023-06-02] MEDS: CEFTRIAXONE 1,000 MG in 0.9 % SODIUM CHLORIDE 50 ML 5 MG IV (10:46)
[2023-06-02 11:25] LABS: Digoxin 0.6 ng/mL (0.9-2.0)
[2023-06-02 15:08] LABS: Glucometer 148 mg/dL (74-106)
--- NOTE | 2023-06-02 16:39 | P.HP_ITS ---
H&P: HPI History of Present Illness Chief complaint: shortness of breath, PNEUMONIA Narrative: patient is a 67-year-old male with past medical history of severe decompensated systolic heart failure with an ejection fraction of approximately ten percent. Also with a history of anasarca, chronic obstructive pulmonary disease, hyperlipidemia, type 2 diabetes with peripheral neuropathy, atrial fibrillation on chronic anticoagulation with Coumadin. Patient was just discharged from the hospital last week for decompensated heart failure. cardiology was consult that at that time for an echocardiogram and also adjusted diuretics with the addition of metolazone. Since that time he is becoming more weak and has been falling, also has become more short of breath with exertion. He denies any weight changes and reports compliance with medications. Per his significant other he is not able to help care for himself at home. Review of Systems ROS Narrative ROS: a complete review of systems were reviewed with patient and are positive as below or listed in History of Chief Complaint. General: no fever, chills, night sweats Head: no headache, trauma, visual changes, nausea or vomiting Skin: many bruises and abrasions, blisters Eyes: no blurriness of vision Ears: no reported hearing loss, vertigo, earache, or tinnitus Throat: no sore throat, hoarseness, swelling of neck, or tongue pain Heart: no chest pain Lungs: some shortness of breath no cough GI: no diarrhea or vomiting/nausea Urinary: no urinary urgency, frequency or pain Neuro: no numbness or tingling HEM: no bleeding issues or bruising ENDO: no thyroid problems Psych: no anxiety or depression PFSH PFSH Medical History Family History Mother Family history of CHF (congestive heart failure) Brother Family history of cancer Social History Within the past year, how often did you have a drink containing alcohol: never Within the past year, how often did you have six or more drinks on one occasion: never Score interpretation: A score less than 4 is consistent with normal alcohol consumption. 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 Known occupational exposures/hazards: No Highest level of school completed/degree received: high school graduate Do you want help with school or training: No Are you now , , , , never or living with a partner: living with partner In a typical week, how many times do you talk on the telephone with family, friends, or neighbors: 3 or more times per week How often do you get together with friends or relatives: 3 or more times per week How often do you attend confucianism or holiness services: never Do you belong to any clubs or organizations such as confucianism groups unions, [employer] or athleRocawear groups, or school groups: no Total score: 2 Score interpretation: A score of greater than or equal to 2 indicates the lowest level of social isolation. Little interest or pleasure in doing things: not at all Feeling down, depressed, or hopeless: not at all Feel stressed/tense/nervous/anxious/difficulty sleeping: not at all Due to disability, difficulty making decisions: No Do you think of yourself as: straight/heterosexual Gender Identity: male Meds Home Medications and Allergies Home Medications Medication Instructions Recorded Confirmed Type amoxicillin 875 mg-potassium 1 tab PO Q12H 05/24/23 06/02/23 History clavulanate 125 mg tablet aspirin 81 mg tablet,delayed 81 mg PO DAILY 05/24/23 06/02/23 History release (Adult Low Dose Aspirin) atorvastatin 80 mg tablet 80 mg PO .QD 05/24/23 06/02/23 History carvedilol 25 mg tablet 25 mg PO Q12H 05/24/23 06/02/23 History dapagliflozin 10 mg tablet 10 mg PO DAILY 05/24/23 06/02/23 History (Farxiga) digoxin 125 mcg (0.125 mg) tablet 0.125 mg PO QDAY 05/24/23 06/02/23 History furosemide 80 mg tablet 80 mg PO QAM 05/24/23 06/02/23 History gabapentin 400 mg capsule 400 mg PO Q12H 05/24/23 06/02/23 History hydrocodone 5 mg-acetaminophen 325 1 tab PO Q8H PRN pain, moderate 05/24/23 06/02/23 History mg tablet isosorbide dinitrate 20 mg tablet 20 mg PO BIDWM 05/24/23 06/02/23 History levothyroxine 50 mcg tablet 50 mcg PO .ACB 05/24/23 06/02/23 History spironolactone 25 mg tablet 25 mg PO QAM 05/24/23 06/02/23 History amitriptyline 25 mg tablet 25 mg PO .hs 06/02/23 06/02/23 History bumetanide 2 mg tablet mg 06/02/23 History cyanocobalamin (vitamin B-12) 1,000 mcg PO DAILY 06/02/23 06/02/23 History 1,000 mcg tablet,extended release hydralazine 50 mg tablet 50 mg PO Q8H 06/02/23 06/02/23 History metolazone 2.5 mg tablet 2.5 mg PO DAILY 06/02/23 06/02/23 History nitroglycerin 0.4 mg sublingual 0.4 mg sublingual Q5M PRN chest 06/02/23 06/02/23 History tablet pain potassium chloride 10 mEq 10 meq PO DAILY 06/02/23 06/02/23 History tablet,extended release sulfamethoxazole 800 1 tab PO Q12H 06/02/23 06/02/23 History mg-trimethoprim 160 mg tablet warfarin 2.5 mg tablet 2.5 mg PO DAILY 06/02/23 06/02/23 History Allergies Allergy/AdvReac Type Severity Reaction Status Date / Time No Known Drug Allergies Allergy Verified 05/24/23 12:06 Exam Narrative Exam Narrative: General: Patient is alert, and oriented to person, place and time with normal affect, proper hygiene Skin: multiple ecchymoses over all four extremities, above the left eye Head: atraumatic, acephalic Eyes: PERRLA, no nystagmus present, conjunctiva clear, no scleral icterus Ears: normal gross auditory acuity Nose: symmetric, no discharge, no maxillary or frontal sinus tenderness Mouth/Throat: no erythema, exudate, or tonsillar enlargement, normal dentition Neck: no masses palpated, normal thyroid, no JVD or audible carotid bruits Heart: irregular rate and rhythm, no murmurs/rubs/gallops Lungs: audible wheezes, crackles and normal breath sounds all lung lyles Abdomen: Normal audible bowel sounds, no distension, No palpable masses, no organomegaly, no rebound/guarding/ or rigidity Musculoskeletal: muscle atrophy noted, ROM is limited due to being in hospital bed,+1 swelling bilateral lower extremities Vascular: Normal carotid, radial, femoral, posterior tibial, and dorsalis pedis pulses Lymph: no supraclavicular, axillary, or anterior/posterior cervical adenopathy Neuro: CN II-X grossly intact, normal sensation upper and lower extremities Constitutional Vital Signs, click to edit/add: Last Vital Signs Temp 98.7 F 06/02/23 14:46 Pulse 85 06/02/23 15:56 Resp 20 06/02/23 14:46 BP 121/75 H 06/02/23 14:46 Pulse Ox 98 06/02/23 16:12 O2 Del Method Nasal Cannula 06/02/23 16:12 O2 Flow Rate 3.5 06/02/23 16:12 Results Labs Labs: Short CBC 06/02/23 Range/Units 09:25 WBC 17.9 H (4.0-11.0) 10^3/uL Hgb 12.5 L (14.0-18.0) g/dL Hct 37.9 L (42.0-54.0) % Plt Count 194 (150-450) 10^3/uL BMP 06/02/23 09:25 Sodium 134 L Potassium 3.1 L Chloride 93 L Carbon Dioxide 31.0 BUN 56.0 H Creatinine 3.20 H Glucose 121 H Calcium 8.5 Liver Function 06/02/23 Range/Units 09:25 Total Bilirubin 1.4 H (0.2-1.0) mg/dL AST 38 H (15-37) U/L ALT 29 (16-63) U/L Alkaline Phosphatase 134 H (46-116) U/L Albumin 3.5 (3.4-5.0) g/dL ABG ABG results: 06/02/23 08:35 ABG pH 7.456 H ABG pCO2 41.4 ABG pO2 65.2 L ABG HCO3 29.1 H ABG O2 Saturation 93.2 ABG Base Excess 5.2 H Assessment and Plan Assessment and Plan (1) Pneumonia: Assessment and Plan: multiple scattered groundglass and nodular opacities predominantly in the left lung and a tiny amount in the right lung seen on chest x-ray,elevated white blood cell count of seventeenace and is not requiring more oxygen and home dose of 2 L nasal cannula,will place on Rocephin and azithromycin (2) Acute on chronic HFrEF (heart failure with reduced ejection fraction): Assessment and Plan: elevated proBNP recent echocardiogram so I'll not repeat that, will place on IV Lasix 80 mg once a day and will continue metolazone, monitor daily weights, fluid restriction, low sodium diet, daily electrolytes, cards consult once they're available, they do not see inpatient consultations on the weekends (3) Acute kidney injury: Assessment and Plan: chronic kidney disease will renally dose antibiotics and continue to monitor. (4) Type 2 diabetes mellitus with hyperglycemia: Assessment and Plan: with meals and at nighttime glucose checks and sliding scale insulin (5) Benign essential hypertension: Assessment and Plan: and continue Coreg, Lasix, hydralazine, isosorbide, spironolactone (6) COPD (chronic obstructive pulmonary disease): Assessment and Plan: will treat underlying pneumonia, as needed DuoNeb's and 2 L nasal cannula oxygen (7) Paroxysmal atrial fibrillation: Assessment and Plan: will check daily INRs, continue Coumadin daily (8) CAD (coronary artery disease): Assessment and Plan: continue atorvastatin (9) Anemia in chronic kidney disease: Assessment and Plan: monitor CBCs continue vitamin B12 (10) Ascites: Assessment and Plan: from anasarca (11) Hypothyroid: Assessment and Plan: continue home levothyroxine Plan Patient is a full code patient is an inpatient status as expected to stay more than two midnights Continue Coumadin for deep vein thrombosis prophylaxis
[2023-06-02] MEDS: AZITHROMYCIN 500 MG in 0.9 % SODIUM CHLORIDE 250 ML 250 MG IV (17:05)
[2023-06-02] MEDS: FUROSEMIDE 40 MG/4 ML VIAL 80 MG IVP (17:05)
[2023-06-02] MEDS: PANTOPRAZOLE SODIUM 40 MG VIAL IV (17:05)
[2023-06-02] MEDS: ISOSORBIDE DINITRATE 20 MG TABLET PO (17:06)
[2023-06-02] MEDS: WARFARIN SODIUM 2.5 MG TABLET PO (17:06)
[2023-06-02] MEDS: HYDROCODONE/ACETAMINOPHEN 5-325 MG TABLET 1 TAB PO (17:13)
[2023-06-02 20:52] LABS: Glucometer 247 mg/dL (74-106)
[2023-06-02] MEDS: GABAPENTIN 400 MG CAPSULE PO (21:05)
[2023-06-02] MEDS: CARVEDILOL 25 MG TABLET PO (21:05)
[2023-06-02] MEDS: INSULIN ASPART 300 UNIT/3 ML PEN SUBQ (21:06)
[2023-06-02] MEDS: AMITRIPTYLINE HCL 25 MG TABLET PO (21:06)
[2023-06-02] MEDS: HYDRALAZINE HCL 50 MG TABLET PO (21:06)
[2023-06-03] VITALS (19 sets, daily range): BP systolic 108–127; BP diastolic 70–83; PULSE 84–87; RESP 18–20; TEMP 36.4–36.7; O2SAT 92–97
[2023-06-03 05:12] LABS: Basophils Percent Auto 0.3 % (0.2-2.0); Eosinophils Absolute Auto 0.2 10^3/uL (0.0-0.7); Eosinophils Percent Auto 2.2 % (0.9-7.0); Hematocrit 35.6 % (42.0-54.0); Hemoglobin 11.6 g/dL (14.0-18.0); Immature Granulocytes Abs Auto 0.04 10^3/uL (0.00-0.03); Immature Granulocytes Pct Auto 0.4 % (0.0-0.5); Lymphocytes Absolute Auto 1.5 10^3/uL (1.2-3.8); Lymphocytes Percent Auto 13.6 % (20.5-60.0); Mean Corpuscular HGB Conc 32.6 g/dL (29.9-35.2); Mean Corpuscular Hemoglobin 27.8 pg (25.9-34.0); Mean Corpuscular Volume 85.4 fL (80.0-94.0); Mean Platelet Volume 9.7 fL (9.5-13.5); Monocytes Absolute Auto 0.9 10^3/uL (0.3-0.8); Monocytes Percent Auto 8.2 % (1.7-12.0); Neutrophils Absolute Auto 8.3 10^3/uL (1.4-6.5); Neutrophils Percent Auto 75.3 % (43.0-75.0); Platelet Count 144 10^3/uL (150-450); Red Blood Count 4.17 10^6/uL (4.70-6.10); Red Cell Distribution Width 15.9 % (11.0-15.0)
[2023-06-03] MEDS: HYDRALAZINE HCL 50 MG TABLET PO ×2 (05:20→21:50)
[2023-06-03] MEDS: LEVOTHYROXINE SODIUM 25 MCG TABLET 50 MCG PO (05:20)
[2023-06-03 05:25] LABS: Prothrombin Time 21.3 sec (9.0-11.6)
[2023-06-03 05:36] LABS: Alanine Aminotransferase 25 U/L (16-63); Albumin Globulin Ratio 0.7; Albumin Level 3.2 g/dL (3.4-5.0); Alkaline Phosphatase 127 U/L (46-116); Anion Gap 11.9; Aspartate Amino Transferase 30 U/L (15-37); BUN Creatinine Ratio 20.1; Bilirubin Total 1.1 mg/dL (0.2-1.0); Calcium 8.5 mg/dL (8.5-10.1); Carbon Dioxide 33.7 mmol/L (21.0-32.0); Chloride 93 mmol/L (98-107); Estimated GFR (African America 28 (>=60); Estimated GFR (Non-African Ame 23 (>=60); Globulin 4.3 g/dL; Glucose 107 mg/dL (74-106); Sodium 136 mmol/L (136-145); Total Protein 7.5 g/dL (6.4-8.2)
[2023-06-03 05:47] LABS: Potassium 2.6 mmol/L (3.5-5.1)
--- NOTE | 2023-06-03 09:17 | P.PN_ITS ---
Progress Note: Subjective Subjective Interval history: patient is a 67-year-old male with past medical history of severe decompensated systolic heart failure with an ejection fraction of approximately ten percent. Also with a history of anasarca, chronic obstructive pulmonary disease, hyperlipidemia, type 2 diabetes with peripheral neuropathy, atrial fibrillation on chronic anticoagulation with Coumadin. Patient was just discharged from the hospital last week for decompensated heart failure. cardiology was consult that at that time for an echocardiogram and also adjusted diuretics with the addition of metolazone. Since that time he is becoming more weak and has been falling, also has become more short of breath with exertion. He denies any weight changes and reports compliance with medications. Per his significant other he is not able to help care for himself at home. Today patient is upset about his fluid restriction but he does feel better. He also demands to go home because the diet we are feeding him is terrible. Exam Narrative Exam Narrative: General: Patient is alert, and oriented to person, place and time with normal affect, proper hygiene Skin: multiple ecchymoses over all four extremities, above the left eye Head: atraumatic, acephalic Eyes: PERRLA, no nystagmus present, conjunctiva clear, no scleral icterus Ears:? normal gross auditory acuity Nose: symmetric, no discharge, no maxillary or frontal sinus tenderness Mouth/Throat: no erythema, exudate, or tonsillar enlargement, normal dentition Neck: no masses palpated, normal thyroid, no JVD or audible carotid bruits Heart: irregular rate and rhythm, no murmurs/rubs/gallops Lungs: audible wheezes, crackles and normal breath sounds all lung lyles Abdomen: Normal audible bowel sounds, no distension, No palpable masses, no or ganomegaly, no rebound/guarding/ or rigidity Musculoskeletal: muscle atrophy noted, ROM is limited due to being in hospital bed,+1 swelling bilateral lower extremities Vascular: Normal carotid, radial, femoral, posterior tibial, and dorsalis pedis pulses Lymph: no supraclavicular, axillary, or anterior/posterior cervical adenopathy Neuro: CN II-X grossly intact, normal sensation upper and lower extremities Constitutional Vital Signs, click to edit/add: Last Vital Signs Temp 97.6 F 06/03/23 05:00 Pulse 85 06/03/23 08:02 Resp 20 06/03/23 05:00 BP 122/74 H 06/03/23 05:00 Pulse Ox 94 L 06/03/23 05:00 O2 Del Method Nasal Cannula 06/03/23 05:00 O2 Flow Rate 2 06/03/23 05:00 Progress Note: Objective Labs Labs: Short CBC 06/02/23 06/03/23 Range/Units 09:25 04:30 WBC 17.9 H 11.0 (4.0-11.0) 10^3/uL Hgb 12.5 L 11.6 L (14.0-18.0) g/dL Hct 37.9 L 35.6 L (42.0-54.0) % Plt Count 194 144 L (150-450) 10^3/uL BMP 06/02/23 06/03/23 09:25 04:30 Sodium 134 L 136 Potassium 3.1 L 2.6 L* Chloride 93 L 93 L Carbon Dioxide 31.0 33.7 H BUN 56.0 H 56.0 H Creatinine 3.20 H 2.78 H Glucose 121 H 107 H Calcium 8.5 8.5 Liver Function 06/02/23 06/03/23 Range/Units 09:25 04:30 Total Bilirubin 1.4 H 1.1 H (0.2-1.0) mg/dL AST 38 H 30 (15-37) U/L ALT 29 25 (16-63) U/L Alkaline Phosphatase 134 H 127 H (46-116) U/L Albumin 3.5 3.2 L (3.4-5.0) g/dL Progress Note: A&P Assessment and Plan (1) Pneumonia: Assessment and Plan: multiple scattered groundglass and nodular opacities predominantly in the left lung and a tiny amount in the right lung seen on chest x-ray,elevated white blood cell count of seventeenace and is not requiring more oxygen and home dose of 2 L nasal cannula,will place on Rocephin and azithromycin (2) Acute on chronic HFrEF (heart failure with reduced ejection fraction): Assessment and Plan: elevated proBNP recent echocardiogram so I'll not repeat that, will place on IV Lasix 80 mg once a day and will continue metolazone, monitor daily weights, fluid restriction, low sodium diet, daily electrolytes, cards consult once they're available, they do not see inpatient consultations on the weekends (3) Acute kidney injury: Assessment and Plan: chronic kidney disease will renally dose antibiotics and continue to monitor. (4) Type 2 diabetes mellitus with hyperglycemia: Assessment and Plan: with meals and at nighttime glucose checks and sliding scale insulin (5) Benign essential hypertension: Assessment and Plan: and continue Coreg, Lasix, hydralazine, isosorbide, spironolactone (6) COPD (chronic obstructive pulmonary disease): Assessment and Plan: will treat underlying pneumonia, as needed DuoNeb's and 2 L nasal cannula oxygen (7) Paroxysmal atrial fibrillation: Assessment and Plan: will check daily INRs, continue Coumadin daily (8) CAD (coronary artery disease): Assessment and Plan: continue atorvastatin (9) Anemia in chronic kidney disease: Assessment and Plan: monitor CBCs continue vitamin B12 (10) Ascites: (11) Hypothyroid: Assessment and Plan: continue levothyroxine Plan Patient is a full code patient is an inpatient status as expected to stay more than two midnights Continue Coumadin for deep vein thrombosis prophylaxis
[2023-06-03] MEDS: ISOSORBIDE DINITRATE 20 MG TABLET PO ×2 (09:46→16:25)
[2023-06-03] MEDS: ATORVASTATIN CALCIUM 40 MG TABLET 80 MG PO (09:47)
[2023-06-03] MEDS: SPIRONOLACTONE 25 MG TABLET PO (09:48)
[2023-06-03] MEDS: DOCUSATE SODIUM 100 MG CAPSULE PO (09:48)
[2023-06-03] MEDS: METOLAZONE 2.5 MG TABLET PO (09:48)
[2023-06-03] MEDS: CANAGLIFLOZIN 100 MG TABLET 300 MG PO (09:48)
[2023-06-03] MEDS: POTASSIUM CHLORIDE 10 MEQ ER TABLET 20 MEQ PO ×2 (09:48→21:50)
[2023-06-03] MEDS: GABAPENTIN 400 MG CAPSULE PO ×2 (09:48→21:51)
[2023-06-03] MEDS: CARVEDILOL 25 MG TABLET PO ×2 (09:48→21:51)
[2023-06-03] MEDS: CEFTRIAXONE 1,000 MG in 0.9 % SODIUM CHLORIDE 50 ML 100 MG IV (09:49)
[2023-06-03] MEDS: ASPIRIN 81 MG TABLET.DR PO (09:49)
[2023-06-03] MEDS: FUROSEMIDE 40 MG/4 ML VIAL 80 MG IVP (09:49)
[2023-06-03] MEDS: DIGOXIN 125 MCG TABLET PO (09:49)
[2023-06-03] MEDS: INSULIN ASPART 300 UNIT/3 ML PEN SUBQ ×2 (11:42→21:55)
[2023-06-03] MEDS: WARFARIN SODIUM 2.5 MG TABLET PO (16:25)
[2023-06-03] MEDS: AZITHROMYCIN 500 MG in 0.9 % SODIUM CHLORIDE 250 ML 100 MG IV (16:25)
[2023-06-03] MEDS: PANTOPRAZOLE SODIUM 40 MG VIAL IV (16:26)
[2023-06-03] MEDS: HYDROCODONE/ACETAMINOPHEN 5-325 MG TABLET 1 TAB PO (21:51)
[2023-06-03] MEDS: AMITRIPTYLINE HCL 25 MG TABLET PO (21:51)
[2023-06-04] VITALS (9 sets, daily range): BP systolic 131; BP diastolic 69; PULSE 77–97; RESP 18; TEMP 36.6; O2SAT 93–96
[2023-06-04 05:42] LABS: Basophils Percent Auto 0.3 % (0.2-2.0); Eosinophils Absolute Auto 0.3 10^3/uL (0.0-0.7); Eosinophils Percent Auto 3.3 % (0.9-7.0); Hematocrit 35.6 % (42.0-54.0); Hemoglobin 11.5 g/dL (14.0-18.0); Immature Granulocytes Abs Auto 0.04 10^3/uL (0.00-0.03); Immature Granulocytes Pct Auto 0.4 % (0.0-0.5); Lymphocytes Absolute Auto 1.5 10^3/uL (1.2-3.8); Lymphocytes Percent Auto 14.8 % (20.5-60.0); Mean Corpuscular HGB Conc 32.3 g/dL (29.9-35.2); Mean Corpuscular Volume 86.8 fL (80.0-94.0); Mean Platelet Volume 10.4 fL (9.5-13.5); Monocytes Absolute Auto 0.8 10^3/uL (0.3-0.8); Monocytes Percent Auto 8.2 % (1.7-12.0); Neutrophils Absolute Auto 7.2 10^3/uL (1.4-6.5); Platelet Count 151 10^3/uL (150-450); Red Cell Distribution Width 15.9 % (11.0-15.0); White Blood Count 9.9 10^3/uL (4.0-11.0)
[2023-06-04 05:49] LABS: INR 2.61; Prothrombin Time 26.2 sec (9.0-11.6)
[2023-06-04] MEDS: HYDRALAZINE HCL 50 MG TABLET PO (05:50)
[2023-06-04] MEDS: LEVOTHYROXINE SODIUM 25 MCG TABLET 50 MCG PO (05:50)
[2023-06-04 06:11] LABS: Alanine Aminotransferase 19 U/L (16-63); Albumin Globulin Ratio 0.8; Albumin Level 3.3 g/dL (3.4-5.0); Alkaline Phosphatase 124 U/L (46-116); Anion Gap 12.8; Aspartate Amino Transferase 29 U/L (15-37); BUN Creatinine Ratio 21.5; Calcium 8.3 mg/dL (8.5-10.1); Carbon Dioxide 33.2 mmol/L (21.0-32.0); Chloride 92 mmol/L (98-107); Estimated GFR (African America 28 (>=60); Estimated GFR (Non-African Ame 23 (>=60); Globulin 4.4 g/dL; Glucose 177 mg/dL (74-106); Sodium 135 mmol/L (136-145); Total Protein 7.7 g/dL (6.4-8.2)
[2023-06-04] MEDS: FUROSEMIDE 40 MG/4 ML VIAL 80 MG IVP (08:34)
[2023-06-04] MEDS: DIGOXIN 125 MCG TABLET PO (08:34)
[2023-06-04] MEDS: GABAPENTIN 400 MG CAPSULE PO (08:35)
[2023-06-04] MEDS: CARVEDILOL 25 MG TABLET PO (08:35)
[2023-06-04] MEDS: POTASSIUM CHLORIDE 10 MEQ ER TABLET 20 MEQ PO (08:35)
[2023-06-04] MEDS: DOCUSATE SODIUM 100 MG CAPSULE PO (08:35)
[2023-06-04] MEDS: METOLAZONE 2.5 MG TABLET PO (08:35)
[2023-06-04] MEDS: ATORVASTATIN CALCIUM 40 MG TABLET 80 MG PO (08:35)
[2023-06-04] MEDS: CANAGLIFLOZIN 100 MG TABLET 300 MG PO (08:35)
[2023-06-04] MEDS: ISOSORBIDE DINITRATE 20 MG TABLET PO (08:35)
[2023-06-04] MEDS: SPIRONOLACTONE 25 MG TABLET PO (08:35)
[2023-06-04] MEDS: ASPIRIN 81 MG TABLET.DR PO (08:35)
[2023-06-04] MEDS: CEFTRIAXONE 1,000 MG in 0.9 % SODIUM CHLORIDE 50 ML 100 MG IV (08:36)
--- NOTE | 2023-06-04 08:57 | PM.PN ---
Progress Note: Subjective Subjective Interval history: patient is a 67-year-old male with past medical history of severe decompensated systolic heart failure with an ejection fraction of approximately ten percent. Also with a history of anasarca, chronic obstructive pulmonary disease, hyperlipidemia, type 2 diabetes with peripheral neuropathy, atrial fibrillation on chronic anticoagulation with Coumadin. Patient was just discharged from the hospital last week for decompensated heart failure. cardiology was consult that at that time for an echocardiogram and also adjusted diuretics with the addition of metolazone. Since that time he is becoming more weak and has been falling, also has become more short of breath with exertion. He denies any weight changes and reports compliance with medications. Per his significant other he is not able to help care for himself at home. Today patient is upset about his fluid restriction but he does feel better. He also demands to go home because the diet we are feeding him is terrible. Exam Constitutional Vital Signs, click to edit/add: Last Vital Signs Temp 97.9 F 06/04/23 05:58 Pulse 87 06/04/23 07:59 Resp 18 06/04/23 05:58 BP 131/69 H 06/04/23 05:58 Pulse Ox 93 L 06/04/23 05:58 O2 Del Method Room Air 06/04/23 05:58 O2 Flow Rate 3 06/04/23 05:33 Progress Note: Objective Labs Labs: Short CBC 06/04/23 Range/Units 04:49 WBC 9.9 (4.0-11.0) 10^3/uL Hgb 11.5 L (14.0-18.0) g/dL Hct 35.6 L (42.0-54.0) % Plt Count 151 (150-450) 10^3/uL BMP 06/04/23 04:49 Sodium 135 L Potassium 3.0 L Chloride 92 L Carbon Dioxide 33.2 H BUN 59.0 H Creatinine 2.75 H Glucose 177 H Calcium 8.3 L Liver Function 06/04/23 Range/Units 04:49 Total Bilirubin 1.0 (0.2-1.0) mg/dL AST 29 (15-37) U/L ALT 19 (16-63) U/L Alkaline Phosphatase 124 H (46-116) U/L Albumin 3.3 L (3.4-5.0) g/dL Progress Note: A&P Assessment and Plan (1) Pneumonia: (2) Acute on chronic HFrEF (heart failure with reduced ejection fraction): (3) Acute kidney injury: (4) Type 2 diabetes mellitus with hyperglycemia: (5) Benign essential hypertension: (6) COPD (chronic obstructive pulmonary disease): (7) Paroxysmal atrial fibrillation: (8) CAD (coronary artery disease): (9) Anemia in chronic kidney disease: (10) Ascites: (11) Hypothyroid:
--- NOTE | 2023-06-04 09:56 | RESP.RT ---
Pt had just walked escobar with [facility] and was on RA. Placed on 3L post walk
--- NOTE | 2023-06-04 10:39 | SWNOTE1 ---
SW met with pt to discuss dc needs. Pt lives at home with his partner. Pt does have home oxygen, but does not always wear it. Pt has [facility] HH coming in currently, but only nursing. Pt does have a walker and cane at home and does plan on using it once he gets home. ANDREW spoke with pt about SNF and HH. Pt did work with therapy and he went about 100 feet. Pt did voice he wants to go home and add therapy on to his home health. Pt does not want to go to rehab at this time. Pt would be a precert if he was agreeable, unsure he would qualify as he did well with therapy. SW to send updates to [facility]. Possible discharge today.
--- NOTE | 2023-06-04 12:22 | CM.NOTE ---
Rounds made with Dr. Mata, discussed skilled therapy with pt. Pt refuses skilled therapy and wishes to continue with [facility]. Pt ok to discharge home today. Pt has home oxygen.
--- NOTE | 2023-06-04 12:23 | PM.DS1 ---
DS: Providers Provider Date of admission: 06/02/23 13:12 Primary care physician: VINNIE STEWART Admitting clinician: Vangie Mata Consults: 06/02/23 13:32 Consult to Cardiology Routine Consulting Provider: Hospitalist 06/02/23 13:38 Occupational Therapy Eval and Treat Routine Physical Therapy Eval and Treat Routine Attending physician on discharge: Vangie Mata DS: Diagnosis Discharge Diagnosis (1) Pneumonia: (2) Acute on chronic HFrEF (heart failure with reduced ejection fraction): (3) Acute kidney injury: (4) Type 2 diabetes mellitus with hyperglycemia: (5) Benign essential hypertension: (6) COPD (chronic obstructive pulmonary disease): (7) Paroxysmal atrial fibrillation: (8) CAD (coronary artery disease): (9) Anemia in chronic kidney disease: (10) Ascites: (11) Hypothyroid: Plan (1) Pneumonia: ?Assessment and Plan: multiple scattered groundglass and nodular opacities predominantly in the left lung and a tiny amount in the right lung seen on chest x-ray,elevated white blood cell count of 17 and is not requiring more oxygen and home dose of 2 L nasal cannula,will place on Rocephin and azithromycin, wbc's normal at discharge, discharge home on augmentin and azithromycin (2) Acute on chronic HFrEF (heart failure with reduced ejection fraction): ?Assessment and Plan: elevated proBNP recent echocardiogram so I'll not repeat that, will place on IV Lasix 80 mg once a day and will continue metolazone, monitor daily weights, fluid restriction, low sodium diet, daily electrolytes, cards consult once they're available, they do not see inpatient consultations on the weekend or on sunday apparently, follow up as outpatient, proBNP decreasing. (3) Acute kidney injury: ?Assessment and Plan: chronic kidney disease will renally dose antibiotics and continue to monitor. (4) Type 2 diabetes mellitus with hyperglycemia: ?Assessment and Plan: with meals and at nighttime glucose checks and sliding scale insulin (5) Benign essential hypertension: ?Assessment and Plan: and continue Coreg, Lasix, hydralazine, isosorbide, spironolactone (6) COPD (chronic obstructive pulmonary disease): ?Assessment and Plan: will treat underlying pneumonia, as needed DuoNeb's and 2 L nasal cannula oxygen, home oxygen (7) Paroxysmal atrial fibrillation: ?Assessment and Plan: will check daily INRs, continue Coumadin daily, will need recheck 1 week (8) CAD (coronary artery disease): ?Assessment and Plan: continue atorvastatin (9) Anemia in chronic kidney disease: ?Assessment and Plan: monitor CBCs continue vitamin B12 (10) Ascites: (11) Hypothyroid: ?Assessment and Plan: DS: Summary Time Spent with Patient Time attestation: Total time spent providing and/or coordinating discharge services: Exam Narrative Exam Narrative: General: Patient is alert, and oriented to person, place and time with normal affect, proper hygiene Skin: multiple ecchymoses over all four extremities, above the left eye Head: atraumatic, acephalic Eyes: PERRLA, no nystagmus present, conjunctiva clear, no scleral icterus Ears:? normal gross auditory acuity Nose: symmetric, no discharge, no maxillary or frontal sinus tenderness Mouth/Throat: no erythema, exudate, or tonsillar enlargement, normal dentition Neck: no masses palpated, normal thyroid, no JVD or audible carotid bruits Heart: irregular rate and rhythm, no murmurs/rubs/gallops Lungs: audible wheezes, crackles and normal breath sounds all lung lyles Abdomen: Normal audible bowel sounds, no distension, No palpable masses, no organomegaly, no rebound/guarding/ or rigidity Musculoskeletal: muscle atrophy noted, ROM is limited due to being in hospital bed,+1 swelling bilateral lower extremities Vascular: Normal carotid, radial, femoral, posterior tibial, and dorsalis pedis pulses Lymph: no supraclavicular, axillary, or anterior/posterior cervical adenopathy Neuro: CN II-X grossly intact, normal sensation upper and lower extremities Constitutional Vital Signs, click to edit/add: Last Vital Signs Temp 97.9 F 06/04/23 05:58 Pulse 77 06/04/23 11:53 Resp 18 06/04/23 05:58 BP 131/69 H 06/04/23 05:58 Pulse Ox 93 L 06/04/23 09:55 O2 Del Method Room Air 06/04/23 09:55 O2 Flow Rate 3 06/04/23 05:33 DS: Data Data Completed and Pending Labs on day of discharge: Labs from last 24 hours 06/04/23 04:49 WBC 9.9 RBC 4.10 L Hgb 11.5 L Hct 35.6 L MCV 86.8 MCH 28.0 MCHC 32.3 RDW 15.9 H Plt Count 151 MPV 10.4 Neut % (Auto) 73.0 Lymph % (Auto) 14.[address] [place] % (Auto) 8.2 Eos % (Auto) 3.3 Baso % (Auto) 0.3 Neut # (Auto) 7.2 H Lymph # (Auto) 1.5 [place] # (Auto) 0.8 Eos # (Auto) 0.3 Baso # (Auto) 0.0 Abs Immat Gran (auto) 0.04 H Imm/Tot Granulo (auto) 0.4 PT 26.2 H INR 2.61 Sodium 135 L Potassium 3.0 L Chloride 92 L Carbon Dioxide 33.2 H Anion Gap 12.8 BUN 59.0 H Creatinine 2.75 H Est GFR ( Amer) 28 L Est GFR (Non-Af Amer) 23 L BUN/Creatinine Ratio 21.5 Glucose 177 H Calcium 8.3 L Total Bilirubin 1.0 AST 29 ALT 19 Alkaline Phosphatase 124 H NT-Pro-B Natriuret Pep 59286.0 H* Total Protein 7.7 Albumin 3.3 L Globulin 4.4 Albumin/Globulin Ratio 0.8 Discharge Plan Discharge Disposition: Home Health Service Condition: Fair Discharge Medications: New amoxicillin-pot clavulanate 875-125 mg tablet 1 tab PO Q12H 7 Days Qty: 14 0RF azithromycin 250 mg tablet 250 mg PO DAILY 4 Days Qty: 4 0RF Rx Instructions: start on day 2 of therapy Continued atorvastatin 80 mg tablet 80 mg PO .QD carvedilol 25 mg tablet 25 mg PO Q12H Farxiga 10 mg tablet 10 mg PO DAILY aspirin [Adult Low Dose Aspirin] 81 mg tablet,delayed release (DR/EC) 81 mg PO DAILY hydrocodone-acetaminophen 5-325 mg tablet 1 tab PO Q8H PRN (Reason: pain, moderate) gabapentin 400 mg capsule 400 mg PO Q12H spironolactone 25 mg tablet 25 mg PO QAM furosemide 80 mg tablet 80 mg PO QAM levothyroxine 50 mcg tablet 50 mcg PO .ACB isosorbide dinitrate 20 mg tablet 20 mg PO BIDWM digoxin 125 mcg (0.125 mg) tablet 0.125 mg PO QDAY warfarin 2.5 mg tablet 2.5 mg PO DAILY Patient Comments: DIRECTED BY CLINIC nitroglycerin 0.4 mg tablet, sublingual 0.4 mg sublingual Q5M PRN (Reason: chest pain) hydralazine 50 mg tablet 50 mg PO Q8H cyanocobalamin (vitamin B-12) 1,000 mcg tablet extended release 1,000 mcg PO DAILY amitriptyline 25 mg tablet 25 mg PO .hs metolazone 2.5 mg Tablet 2.5 mg PO DAILY Changed potassium chloride 10 mEq tablet extended release 20 meq PO BID Qty: 0 0RF Discontinued amoxicillin-pot clavulanate 875-125 mg tablet 1 tab PO Q12H Rx Instructions: CONTINUOUS sulfamethoxazole-trimethoprim 800-160 mg tablet 1 tab PO Q12H bumetanide 2 mg tablet Activity: ambulate only with your walker and wear oxygen at all times Diet: low fat, low cholesterol, low salt diet and other Diet Detail: fluid restriction of 1800mL daily Forms: Portal Instructions Follow Up Appointments: pcp 5-7 days, cardiology 1 week
--- NOTE | 2023-06-04 12:35 | CM.NOTE ---
Important Message From Medicare discussed with pt, pt verbalizes understanding and signs paper. Original given to pt and copy put on pt's chart.
--- NOTE | 2023-06-05 10:40 | CM.DCFOLLOWU ---
First attempt at discharge follow up phone call and no answer at phone number [phone].
--- NOTE | 2023-06-07 10:52 | CM.DCFOLLOWU ---
Third and final attempt at discharge call back was today and no one answered
== END 2023-06-04 13:49 | disposition home health service (06) | DRG 193 ==
LOC: ER 12:14 → MS 13:14
PROVIDERS: Admitting Provider Family Medicine; Emergency Provider Emergency Medicine; PCP Family Medicine; Visit Provider Family Medicine
DX: J18.9 Pneumonia, unspecified organism (principal); I50.23 Acute on chronic systolic (congestive) heart failure; N17.9 Acute kidney failure, unspecified; J44.0 Chronic obstructive pulmonary disease with (acute) lower respiratory infection; I13.0 Hypertensive heart and chronic kidney disease with heart failure and stage 1 through stage 4 chronic kidney disease, or unspecified chronic kidney disease; R18.8 Other ascites; N18.30 Chronic kidney disease, stage 3 unspecified; D63.1 Anemia in chronic kidney disease; E11.65 Type 2 diabetes mellitus with hyperglycemia; E11.22 Type 2 diabetes mellitus with diabetic chronic kidney disease; I48.0 Paroxysmal atrial fibrillation; I25.10 Atherosclerotic heart disease of native coronary artery without angina pectoris; E03.9 Hypothyroidism, unspecified; E78.5 Hyperlipidemia, unspecified; E11.42 Type 2 diabetes mellitus with diabetic polyneuropathy; Z79.01 Long term (current) use of anticoagulants; Z79.82 Long term (current) use of aspirin; Z79.84 Long term (current) use of oral hypoglycemic drugs; Z79.899 Other long term (current) drug therapy; Z79.890 Hormone replacement therapy; Z99.89 Dependence on other enabling machines and devices; Z99.81 Dependence on supplemental oxygen; Z82.49 Family history of ischemic heart disease and other diseases of the circulatory system; Z80.9 Family history of malignant neoplasm, unspecified; Z87.891 Personal history of nicotine dependence
CPT/HCPCS: 36415; 36600; 71045; 71250; 74176; 80053; 80162; 82805; 82948; 83605; 83880; 84484; 85025; 85610; 85730; 87040; 93005; 94640; 94667; 94668; 94761; 96365; 96366; 96367; 96375; 96376; 97161; 97165; 99285; J0456

== ENCOUNTER 2023-06-05 12:52 | Outpatient (OUT) | payer MEDICARE, SELFPAY | END 2023-06-05 12:53 | disposition home or self-care (01) | LOC: WC 12:52 | PROVIDERS: PCP Family Medicine; Visit Provider Podiatrist Foot & Ankle Surgery | DX: E11.621 Type 2 diabetes mellitus with foot ulcer (principal); L97.512 Non-pressure chronic ulcer of other part of right foot with fat layer exposed | CPT/HCPCS: G0463 ==

== ENCOUNTER 2023-06-18 08:45 | Outpatient (OUT) | payer MEDICARE, SELFPAY ==
[2023-06-18 09:29] LABS: Basophils Percent Auto 0.3 % (0.2-2.0); Eosinophils Absolute Auto 0.5 10^3/uL (0.0-0.7); Eosinophils Percent Auto 3.7 % (0.9-7.0); Hematocrit 37.6 % (42.0-54.0); Hemoglobin 12.6 g/dL (14.0-18.0); Immature Granulocytes Abs Auto 0.06 10^3/uL (0.00-0.03); Immature Granulocytes Pct Auto 0.5 % (0.0-0.5); Lymphocytes Absolute Auto 1.6 10^3/uL (1.2-3.8); Mean Corpuscular HGB Conc 33.5 g/dL (29.9-35.2); Mean Corpuscular Hemoglobin 28.1 pg (25.9-34.0); Mean Corpuscular Volume 83.7 fL (80.0-94.0); Mean Platelet Volume 10.1 fL (9.5-13.5); Monocytes Percent Auto 8.6 % (1.7-12.0); Neutrophils Absolute Auto 8.9 10^3/uL (1.4-6.5); Neutrophils Percent Auto 73.9 % (43.0-75.0); Platelet Count 209 10^3/uL (150-450); Red Blood Count 4.49 10^6/uL (4.70-6.10); Red Cell Distribution Width 16.3 % (11.0-15.0)
[2023-06-18 10:23] LABS: Digoxin 1.1 ng/mL (0.9-2.0)
[2023-06-19 16:07] LABS: Alanine Aminotransferase 44 U/L (16-63); Alkaline Phosphatase 144 U/L (46-116); Anion Gap 14.9; Aspartate Amino Transferase 37 U/L (15-37); BUN Creatinine Ratio 18.4; Bilirubin Total 0.8 mg/dL (0.2-1.0); Calcium 8.1 mg/dL (8.5-10.1); Carbon Dioxide 30.8 mmol/L (21.0-32.0); Chloride 90 mmol/L (98-107); Estimated GFR (African America 21 (>=60); Estimated GFR (Non-African Ame 17 (>=60); Glucose 175 mg/dL (74-106); Sodium 133 mmol/L (136-145); Total Protein 8.1 g/dL (6.4-8.2)
[2023-06-19 16:08] LABS: Albumin Globulin Ratio 0.9; Albumin Level 3.9 g/dL (3.4-5.0); Globulin 4.2 g/dL; Potassium 2.7 mmol/L (3.5-5.1)
== END 2023-06-18 08:46 | disposition home or self-care (01) ==
PROVIDERS: PCP Family Medicine; Visit Provider Internal Medicine Interventional Cardiology
DX: I50.22 Chronic systolic (congestive) heart failure (principal)
CPT/HCPCS: 36415; 80053; 80162; 83880; 85025

== ENCOUNTER 2023-06-19 09:01 | Outpatient (RCR) | payer MEDICARE, SELFPAY | END 2023-07-19 17:20 | disposition home or self-care (01) | LOC: MM 09:01 | PROVIDERS: PCP Family Medicine; Visit Provider Internal Medicine | DX: Z51.81 Encounter for therapeutic drug level monitoring (principal); Z79.01 Long term (current) use of anticoagulants; I48.91 Unspecified atrial fibrillation ==

== ENCOUNTER 2023-06-20 10:10 | Observation (INO) | payer MEDICARE, SELFPAY ==
[2023-06-20] VITALS (33 sets, daily range): BP systolic 116–135; BP diastolic 71–79; PULSE 84–96; RESP 10–28; TEMP 36.4–36.6; O2SAT 87–97; BMI 29.5; BMI 30.8
--- NOTE | 2023-06-20 10:20 | ECG_ITS ---
[facility] Test Date: 2023-06-20 Pat Name: ADWOA PORTER Department: Room: [facility] [place] Gender: Male Booking Prizer: : [id number] Requested By: [id number] Order Number: [id number] Reading MD: MIESHA LOCKE Measurements Intervals [place] Rate: 31 P: -90590 VT: -22877 QRS: -86 QRSD: 152 T: 97 QT: 468 QTc: 339 Interpretive Statements [id number] Electronic ventricular pacemaker Electronically Signed On 06-20-2023 21:00:39 EDT by MIESHA LOCKE
[2023-06-20] MEDS: POTASSIUM BICARBONATE/CIT 25 MEQ TABLET EFF 50 MEQ PO ×2 (11:14→12:24)
--- NOTE | 2023-06-20 11:39 | ED_ITS ---
HPI - General Adult General Chief complaint: Recheck/Abnormal Lab/Rx Stated complaint: POTASSIUM NOT TOO GOOD Time Seen by Provider: 06/20/23 10:57 Source: patient Mode of arrival: Wheelchair Limitations: no limitations History of Present Illness HPI narrative: Patient is a 67-year-old male who is presenting to the Emergency Room today with chief complaint of abnormal labs. Patient was told that his potassium levels were high by Dr. Ceballos staff. Patient is asymptomatic. Patient is not lightheaded or dizzy. No chest pain or shortness of breath. No abdominal pain, nausea, or vomiting. Patient's lymphedema has significantly improved since last time I seen him in the Emergency Room. Patient is on diuretics. Patient has increase his potassium intake at home from 10-20 mEq daily. Patient has an appointment with his professor of environmental studies today at 3:30 PM, Dr Ceballos. Tomorrow's birthday, patient is happy that he may not need to stay in the hospital overnight. Patient has no acute complaints otherwise at this time. Patient is here because he is told to come here by his the [place] cardiology group office at [facility]. Patient's potassium was 2.7 on June 18. . All systems are negative except as noted/marked. All systems reviewed and otherwise negative. . Nurses note and vital signs reviewed and patient is not hypoxic. General: The patient appears well and in no apparent distress. Patient is resting comfortably on cart. Patient is not toxic, lethargic, or listless Skin: Warm, dry, no pallor noted. There is no rash noted. No petechiae, purpura. Chronic changes to bilateral lower extremities, 1+ pitting edema, no signs of cellulitis or secondary infection. Chronic skin changes to bilateral arms, no active bleeding. Head: Normocephalic, atraumatic Eye: Normal conjunctiva, no drainage, EOMI. PERRL Ears, Nose, Mouth, and Throat: oral mucosa is moist. Nares patent. Mouth without vesicles. Cardiovascular: Regular Rate and Rhythm, no murmur, gallop, rub Respiratory: Patient is in no distress, no accessory muscle use, lungs are clear to auscultation, no wheezing, rales or rhonchi Back: non-tender, no CVA tenderness bilaterally to percussion. No CT LS midline pain GI: soft, no tenderness to palpation, no masses appreciated. No rebound, guarding, or rigidity noted. No flank pain bilateral, No distention Musculoskeletal: Patient has full range of motion of all of the extremities, no motor, sensory, or focal neurological deficits. Chronic bilateral lower extremity peripheral edema, lymphedema is significant only improved today compared to other Emergency Room visits for Inapsine and. Neurological: A&O x3, normal speech Psychiatric: Cooperative Related Data Home Medications Medication Instructions Recorded Confirmed aspirin 81 mg tablet,delayed 81 mg PO DAILY 05/24/23 06/20/23 release (Adult Low Dose Aspirin) atorvastatin 80 mg tablet 80 mg PO .QD 05/24/23 06/20/23 carvedilol 25 mg tablet 25 mg PO Q12H 05/24/23 06/20/23 dapagliflozin propanediol 10 mg 10 mg PO DAILY 05/24/23 06/20/23 tablet (Farxiga) digoxin 125 mcg (0.125 mg) tablet 0.125 mg PO QDAY 05/24/23 06/20/23 furosemide 80 mg tablet 80 mg PO Q12H 05/24/23 06/20/23 gabapentin 400 mg capsule 400 mg PO Q12H 05/24/23 06/20/23 hydrocodone 5 mg-acetaminophen 325 1 tab PO Q8H PRN pain, moderate 05/24/2301/11 mg tablet isosorbide dinitrate 20 mg tablet 20 mg PO BIDWM 05/24/23 06/20/23 levothyroxine 50 mcg tablet 50 mcg PO .ACB 05/24/23 06/20/23 spironolactone 25 mg tablet 25 mg PO QAM 05/24/23 06/20/23 amitriptyline 25 mg tablet 25 mg PO .hs 06/02/23 06/20/23 cyanocobalamin (vitamin B-12) 1,000 mcg PO DAILY 06/02/23 06/20/23 1,000 mcg tablet,extended release hydralazine 50 mg tablet 50 mg PO Q8H 06/02/23 06/20/23 metolazone 2.5 mg tablet 2.5 mg PO DAILY 06/02/23 06/20/23 nitroglycerin 0.4 mg sublingual 0.4 mg sublingual Q5M PRN chest 06/02/23 06/20/23 tablet pain warfarin 2.5 mg tablet 2.5 mg PO DAILY 06/02/23 06/20/23 furosemide 20 mg tablet 20 mg PO BID 06/20/23 06/20/23 Previous Rx's Medication Instructions Recorded potassium chloride 10 mEq 20 meq PO BID #0 tabs 06/04/23 tablet,extended release Allergies Allergy/AdvReac Type Severity Reaction Status Date / Time No Known Drug Allergies Allergy Verified 05/24/23 12:06 [facility] Medical History Surgical History (Updated 06/20/23 @ 13:44 by Susanna Gill) Family History Mother Family history of CHF (congestive heart failure) Brother Family history of cancer Social History Within the past year, how often did you have a drink containing alcohol: never Within the past year, how often did you have six or more drinks on one occasion: never Score interpretation: A score less than 4 is consistent with normal alcohol c onsumption. 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 Known occupational exposures/hazards: No Highest level of school completed/degree received: high school graduate Do you want help with school or training: No Are you now , , , , never or living with a partner: living with partner In a typical week, how many times do you talk on the telephone with family, friends, or neighbors: 3 or more times per week How often do you get together with friends or relatives: 3 or more times per week How often do you attend lutheran or buddhism services: never Do you belong to any clubs or organizations such as lutheran groups unions, fraternal or athletic groups, or school groups: no Total score: 2 Score interpretation: A score of greater than or equal to 2 indicates the lowest level of social isolation. Little interest or pleasure in doing things: not at all Feeling down, depressed, or hopeless: not at all Feel stressed/tense/nervous/anxious/difficulty sleeping: not at all Due to disability, difficulty making decisions: No Do you think of yourself as: straight/heterosexual Gender Identity: male Exam Constitutional Vital Signs, click to edit/add: Last Vital Signs Temp 97.6 F 06/20/23 10:15 Pulse 85 06/20/23 11:27 Resp 15 06/20/23 11:27 BP 129/79 06/20/23 11:27 Pulse Ox 95 06/20/23 11:27 O2 Del Method Room Air 06/20/23 10:34 Course Vital Signs Vital signs: Vital Signs Temperature 97.6 F 06/20/23 10:15 Pulse Rate 85 06/20/23 10:15 Respiratory Rate 18 06/20/23 10:15 Blood Pressure 125/74 06/20/23 10:15 Pulse Oximetry 94 L 06/20/23 10:15 Oxygen Delivery Method Room Air 06/20/23 10:15 Temperature 97.6 F 06/20/23 10:15 Pulse Rate 85 06/20/23 11:27 Respiratory Rate 15 06/20/23 11:27 Blood Pressure 129/79 06/20/23 11:27 Pulse Oximetry 95 06/20/23 11:27 Oxygen Delivery Method Room Air 06/20/23 10:34 Medical Decision Making MDM Narrative Medical decision making narrative: Patient drank initial dose of 50 mEq of potassium bicarbonate. Patient's repeat potassium was 3.0. Patient was ordered a 2nd dose of potassium bicarbonate that he did drink now or later to help get him into a low normal range. Patient is to continue taking his 20 mg of potassium daily. Patient will follow-up with his professor of environmental studies today at scheduled appointment at 3:30 PM. The cardiology office has been called, patient will be admitted to the hospital and he will not be make his cardiology appointment today. It was initially thought the patient had repeat blood work today with a potassium of 3.0, that was not accurate. Patient was going to be discharged, there was error made by myself, and I did repeat patient's BNP today his potassium is 2.2. Patient blamless apologies were given to the patient, patient was understanding. Patient will be admitted to the hospital for IV potassium and potassium replacement. Patient is admitted to Dr. Saldana. Patient is understanding and agrees. Patient may need further changes to his potassium regimen at home. Patient was placed on clinical research monitor, IV potassium was initiated. Critical care time 35 minutes exclusive from separate billable procedures that were performed. The following was considered in the determination of critical care but not limited to the level of medical decision making, intensive cardiac and/or respiratory monitoring, frequent vital sign monitoring, evaluation of laboratory studies, evaluation of radiographic studies, oxygen monitoring, and constant monitoring and speaking to family at bedside Lab Data Lab results reviewed: Yes I reviewed the patient's lab results Lab results narrative: Patient's potassium was 2.2 on recheck today. There is 2.7 on June 18. Discharge Plan Discharge Chief Complaint: Recheck/Abnormal Lab/Rx Clinical Impression: Hypokalemia Patient Disposition: Home, Self-Care Condition: Good Discharge Date/Time: 06/20/23 13:10
[2023-06-20 12:06] LABS: Anion Gap 12.2; BUN Creatinine Ratio 21.8; Calcium 8.8 mg/dL (8.5-10.1); Chloride 87 mmol/L (98-107); Estimated GFR (African America 24 (>=60); Estimated GFR (Non-African Ame 20 (>=60); Glucose 228 mg/dL (74-106); Sodium 129 mmol/L (136-145)
[2023-06-20 12:08] LABS: Potassium 2.2 mmol/L (3.5-5.1)
[2023-06-20] MEDS: POTASSIUM CHLORIDE IN 0.9%NACL 1,000 ML 250 MEQ IV (12:33)
[2023-06-20 12:58] LABS: Basophils Absolute Auto 0.1 10^3/uL (0.0-0.1); Basophils Percent Auto 0.5 % (0.2-2.0); Eosinophils Absolute Auto 0.3 10^3/uL (0.0-0.7); Eosinophils Percent Auto 2.8 % (0.9-7.0); Hematocrit 37.6 % (42.0-54.0); Hemoglobin 12.6 g/dL (14.0-18.0); Immature Granulocytes Abs Auto 0.05 10^3/uL (0.00-0.03); Immature Granulocytes Pct Auto 0.5 % (0.0-0.5); Lymphocytes Absolute Auto 1.3 10^3/uL (1.2-3.8); Lymphocytes Percent Auto 12.4 % (20.5-60.0); Mean Corpuscular HGB Conc 33.5 g/dL (29.9-35.2); Mean Corpuscular Hemoglobin 27.6 pg (25.9-34.0); Mean Corpuscular Volume 82.3 fL (80.0-94.0); Mean Platelet Volume 10.5 fL (9.5-13.5); Monocytes Absolute Auto 0.8 10^3/uL (0.3-0.8); Monocytes Percent Auto 7.5 % (1.7-12.0); Neutrophils Percent Auto 76.3 % (43.0-75.0); Platelet Count 194 10^3/uL (150-450); Red Blood Count 4.57 10^6/uL (4.70-6.10); Red Cell Distribution Width 16.3 % (11.0-15.0); White Blood Count 10.4 10^3/uL (4.0-11.0)
[2023-06-20 13:03] LABS: INR 1.99; Prothrombin Time 20.3 sec (9.0-11.6)
[2023-06-20] MEDS: POTASSIUM CHLORIDE 10 MEQ ER TABLET 20 MEQ PO ×2 (14:47→21:14)
[2023-06-20] MEDS: HYDROCODONE/ACETAMINOPHEN 5-325 MG TABLET 1 TAB PO (14:50)
[2023-06-20 15:39] LABS: Anion Gap 10.1; BUN Creatinine Ratio 22.4; Calcium 8.5 mg/dL (8.5-10.1); Carbon Dioxide 34.3 mmol/L (21.0-32.0); Chloride 89 mmol/L (98-107); Estimated GFR (African America 24 (>=60); Estimated GFR (Non-African Ame 20 (>=60); Glucose 301 mg/dL (74-106); Potassium 3.4 mmol/L (3.5-5.1); Sodium 130 mmol/L (136-145)
[2023-06-20 16:24] LABS: Glucometer 249 mg/dL (74-106)
[2023-06-20] MEDS: 0.9 % SODIUM CHLORIDE 1,000 ML 75 ML IV (16:33)
[2023-06-20] MEDS: INSULIN ASPART 300 UNIT/3 ML PEN SUBQ ×2 (16:42→21:16)
[2023-06-20] MEDS: ISOSORBIDE DINITRATE 20 MG TABLET PO (16:42)
--- NOTE | 2023-06-20 18:38 | P.HP_ITS ---
H&P: HPI History of Present Illness Chief complaint: POTASSIUM NOT TOO GOOD/HYPOKALEMIA Narrative: Patient was seen and evaluated as an outpatient found to have significant hypokalemia and recommended referral to ER. He was started on doses in ER and will be admitted for IV therapy [facility] Medical History (Updated 06/20/23 @ 13:44 by Susanna Gill) Surgical History (Updated 06/20/23 @ 13:44 by Susanna Gill) Family History Mother Family history of CHF (congestive heart failure) Brother Family history of cancer Social History Within the past year, how often did you have a drink containing alcohol: never Within the past year, how often did you have six or more drinks on one occasion: never Score interpretation: A score less than 4 is consistent with normal alcohol consumption. 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 Known occupational exposures/hazards: No Highest level of school completed/degree received: high school graduate Do you want help with school or training: No Are you now , , , , never or living with a partner: living with partner In a typical week, how many times do you talk on the telephone with family, friends, or neighbors: 3 or more times per week How often do you get together with friends or relatives: 3 or more times per week How often do you attend faith or presybeterian services: never Do you belong to any clubs or organizations such as faith groups unions, fraternal or athletic groups, or school groups: no Total score: 2 Score interpretation: A score of greater than or equal to 2 indicates the lowest level of social isolation. Little interest or pleasure in doing things: not at all Feeling down, depressed, or hopeless: not at all Feel stressed/tense/nervous/anxious/difficulty sleeping: not at all Due to disability, difficulty making decisions: No Do you think of yourself as: straight/heterosexual Gender Identity: male Meds Home Medications and Allergies Home Medications Medication Instructions Recorded Confirmed Type aspirin 81 mg tablet,delayed 81 mg PO DAILY 05/24/23 06/20/23 History release (Adult Low Dose Aspirin) atorvastatin 80 mg tablet 80 mg PO .QD 05/24/23 06/20/23 History carvedilol 25 mg tablet 25 mg PO Q12H 05/24/23 06/20/23 History dapagliflozin propanediol 10 mg 10 mg PO DAILY 05/24/23 06/20/23 History tablet (Farxiga) digoxin 125 mcg (0.125 mg) tablet 0.125 mg PO QDAY 05/24/23 06/20/23 History furosemide 80 mg tablet 80 mg PO Q12H 05/24/23 06/20/23 History gabapentin 400 mg capsule 400 mg PO Q12H 05/24/23 06/20/23 History hydrocodone 5 mg-acetaminophen 325 1 tab PO Q8H PRN pain, moderate 05/24/23 06/20/23 History mg tablet isosorbide dinitrate 20 mg tablet 20 mg PO BIDWM 05/24/23 06/20/23 History levothyroxine 50 mcg tablet 50 mcg PO .ACB 05/24/23 06/20/23 History spironolactone 25 mg tablet 25 mg PO QAM 05/24/23 06/20/23 History amitriptyline 25 mg tablet 25 mg PO .hs 06/02/23 06/20/23 History cyanocobalamin (vitamin B-12) 1,000 mcg PO DAILY 06/02/23 06/20/23 History 1,000 mcg tablet,extended release hydralazine 50 mg tablet 50 mg PO Q8H 06/02/23 06/20/23 History metolazone 2.5 mg tablet 2.5 mg PO DAILY 06/02/23 06/20/23 History nitroglycerin 0.4 mg sublingual 0.4 mg sublingual Q5M PRN chest 06/02/23 06/20/23 History tablet pain warfarin 2.5 mg tablet 2.5 mg PO DAILY 06/02/23 06/20/23 History potassium chloride 10 mEq 20 meq PO BID #0 tabs 06/04/23 06/20/23 Rx tablet,extended release furosemide 20 mg tablet 20 mg PO BID 06/20/23 06/20/23 History Allergies Allergy/AdvReac Type Severity Reaction Status Date / Time No Known Drug Allergies Allergy Verified 05/24/23 12:06 Exam Constitutional Vital Signs, click to edit/add: Last Vital Signs Temp 97.7 F 06/20/23 13:14 Pulse 86 06/20/23 18:03 Resp 20 06/20/23 13:14 BP 118/77 06/20/23 13:14 Pulse Ox 93 L 06/20/23 13:14 O2 Del Method Room Air 06/20/23 13:14 Chest Common normals: inspection of chest normal Respiratory Common normals: normal respiratory effort and no use of accessory muscles Auscultation: rales (bases) Cardio Common normals: no JVD, regular rate and regular rhythm Extremity General: edema (1-2 plus - told is normal bfor him - maybe some early cellulitis - on AB - ) Results Labs Labs: Short CBC 06/20/23 Range/Units 10:30 WBC 10.4 (4.0-11.0) 10^3/uL Hgb 12.6 L (14.0-18.0) g/dL Hct 37.6 L (42.0-54.0) % Plt Count 194 (150-450) 10^3/uL BMP 06/20/23 06/20/23 10:30 15:15 Sodium 129 L 130 L Potassium 2.2 L* 3.4 L Chloride 87 L 89 L Carbon Dioxide 32.0 34.3 H BUN 68.0 H 70.0 H Creatinine 3.12 H 3.13 H Glucose 228 H 301 H Calcium 8.8 8.5 Assessment and Plan Assessment and Plan (1) Hypokalemia: Plan Severe hypokalemia likely secondary to diuresis-IV potassium. Repeat serial Chem-8's and repeat boluses as necessary plus increase p.o. intake. If improved tomorrow will discharge to home in improving condition. Medications see list. Follow-up with PCP at discharge. Iron deficiency anemia-monitor daily Hypertension-continue with home medications Chronic kidney disease stage III-Secondary to need for diuresis as well asDiabetes mellitus-Monitor daily
[2023-06-20 20:39] LABS: Glucometer 323 mg/dL (74-106)
[2023-06-20] MEDS: GABAPENTIN 400 MG CAPSULE PO (21:13)
[2023-06-20] MEDS: FUROSEMIDE 40 MG TABLET 100 MG PO (21:13)
[2023-06-20] MEDS: AMITRIPTYLINE HCL 25 MG TABLET PO (21:14)
[2023-06-20] MEDS: CARVEDILOL 25 MG TABLET PO (21:14)
[2023-06-20] MEDS: ATORVASTATIN CALCIUM 40 MG TABLET 80 MG PO (21:14)
[2023-06-20] MEDS: HYDRALAZINE HCL 50 MG TABLET PO (21:16)
--- NOTE | 2023-06-20 21:40 | RESP.RT ---
Placed pt on 3L nasal cannula. Pt wears 3L at home at night with CPAP. Pt did not bring CPAP from home.
[2023-06-20 21:44] LABS: Anion Gap 8.9; BUN Creatinine Ratio 23.7; Calcium 8.3 mg/dL (8.5-10.1); Carbon Dioxide 33.9 mmol/L (21.0-32.0); Chloride 90 mmol/L (98-107); Estimated GFR (African America 26 (>=60); Estimated GFR (Non-African Ame 22 (>=60); Glucose 323 mg/dL (74-106); Sodium 130 mmol/L (136-145)
[2023-06-20 21:46] LABS: Potassium 2.8 mmol/L (3.5-5.1)
[2023-06-20] MEDS: POTASSIUM CHLORIDE IN WATER 10 MEQ/100 ML PIGGYBACK 100 MEQ IV (23:25)
[2023-06-21] MEDS: POTASSIUM CHLORIDE IN WATER 10 MEQ/100 ML PIGGYBACK 75 MEQ IV (01:33)
[2023-06-21 01:51] VITALS: PULSE 85
[2023-06-21] MEDS: POTASSIUM CHLORIDE IN WATER 10 MEQ/100 ML PIGGYBACK 100 MEQ IV ×2 (03:17→04:25)
[2023-06-21] MEDS: 0.9 % SODIUM CHLORIDE 1,000 ML 75 ML IV (03:17)
[2023-06-21 03:54] VITALS: PULSE 85
[2023-06-21 05:00] VITALS: O2SAT 96
[2023-06-21 05:44] VITALS: BP 123/57; PULSE 85; RESP 18; TEMP 36.6; O2SAT 96
[2023-06-21 05:49] VITALS: PULSE 97
[2023-06-21] MEDS: POTASSIUM CHLORIDE 10 MEQ ER TABLET 20 MEQ PO (06:23)
[2023-06-21] MEDS: HYDRALAZINE HCL 50 MG TABLET PO (06:23)
[2023-06-21] MEDS: LEVOTHYROXINE SODIUM 25 MCG TABLET 50 MCG PO (06:23)
[2023-06-21] MEDS: HYDROCODONE/ACETAMINOPHEN 5-325 MG TABLET 1 TAB PO (06:28)
[2023-06-21 07:27] LABS: Anion Gap 12.2; BUN Creatinine Ratio 26.9; Calcium 8.7 mg/dL (8.5-10.1); Carbon Dioxide 30.8 mmol/L (21.0-32.0); Chloride 92 mmol/L (98-107); Estimated GFR (African America 35 (>=60); Estimated GFR (Non-African Ame 29 (>=60); Glucose 186 mg/dL (74-106); Sodium 132 mmol/L (136-145)
[2023-06-21 07:59] VITALS: PULSE 92
[2023-06-21] MEDS: WARFARIN SODIUM 2.5 MG TABLET PO (08:25)
[2023-06-21] MEDS: METOLAZONE 2.5 MG TABLET PO (08:25)
[2023-06-21] MEDS: SPIRONOLACTONE 25 MG TABLET PO (08:25)
[2023-06-21] MEDS: CANAGLIFLOZIN 100 MG TABLET 300 MG PO (08:25)
[2023-06-21] MEDS: FUROSEMIDE 40 MG TABLET 100 MG PO (08:26)
[2023-06-21] MEDS: ISOSORBIDE DINITRATE 20 MG TABLET PO (08:26)
[2023-06-21] MEDS: ASPIRIN 81 MG TABLET.DR PO (08:26)
[2023-06-21] MEDS: GABAPENTIN 400 MG CAPSULE PO (08:26)
[2023-06-21] MEDS: DIGOXIN 125 MCG TABLET PO (08:27)
[2023-06-21] MEDS: INSULIN ASPART 300 UNIT/3 ML PEN SUBQ (08:29)
[2023-06-21] MEDS: CARVEDILOL 25 MG TABLET PO (08:31)
--- NOTE | 2023-06-21 08:31 | CM.NOTE ---
Rounds made with Dr. Saldana, pt ok for discharge today. Pt will continue with Abdi RASMUSSEN.
--- NOTE | 2023-06-21 08:35 | P.DS_ITS ---
DS: Providers Provider Date of admission: 06/20/23 12:19 Primary care physician: VINNIE STEWART DS: Diagnosis Discharge Diagnosis (1) Hypokalemia: Plan Severe hypokalemia likely secondary to diuresis Iron deficiency anemia Hypertension Chronic kidney disease stage III ? DS: Summary Hospital Course Hospital Course: Patient was admitted with severe hypokalemia is found as an outpatient. Treated with IV potassium supplementation. He tolerated that well. Telemetry was normal. At this point he feels improved. The potassium still low but much improved from admission. This point he will be discharged home in improving condition. Medications see list. Follow-up with PCP. Needs repeat level in [address] Stewart Time Spent with Patient Time attestation: Total time spent providing and/or coordinating discharge services: Exam Constitutional Vital Signs, click to edit/add: Last Vital Signs Temp 97.8 F 06/21/23 05:44 Pulse 92 H 06/21/23 07:59 Resp 18 06/21/23 05:44 BP 123/57 06/21/23 05:44 Pulse Ox 96 06/21/23 05:44 O2 Del Method Nasal Cannula 06/21/23 05:44 O2 Flow Rate 3 06/21/23 05:44 DS: Data Data Completed and Pending Labs on day of discharge: Labs from last 24 hours 06/21/23 06/20/23 06/20/23 07:00 21:18 20:37 WBC RBC Hgb Hct MCV MCH MCHC RDW Plt Count MPV Neut % (Auto) Lymph % (Auto) [place] % (Auto) Eos % (Auto) Baso % (Auto) Neut # (Auto) Lymph # (Auto) [place] # (Auto) Eos # (Auto) Baso # (Auto) Abs Immat Gran (auto) Imm/Tot Granulo (auto) PT INR Sodium 132 L 130 L Potassium 3.0 L 2.8 L* Chloride 92 L 90 L Carbon Dioxide 30.8 33.9 H Anion Gap 12.2 8.9 BUN 61.0 H 69.0 H Creatinine 2.27 H 2.91 H Est GFR ( Amer) 35 L 26 L Est GFR (Non-Af Amer) 29 L 22 L BUN/Creatinine Ratio 26.9 23.7 Glucose 186 H 323 H Calcium 8.7 8.3 L POC Glucose 323 H 06/20/23 06/20/23 06/20/23 16:22 15:15 10:30 WBC 10.4 RBC 4.57 L Hgb 12.6 L Hct 37.6 L MCV 82.3 MCH 27.6 MCHC 33.5 RDW 16.3 H Plt Count 194 MPV 10.5 Neut % (Auto) 76.3 H Lymph % (Auto) 12.4 L [place] % (Auto) 7.5 Eos % (Auto) 2.8 Baso % (Auto) 0.5 Neut # (Auto) 8.0 H Lymph # (Auto) 1.3 [place] # (Auto) 0.8 Eos # (Auto) 0.3 Baso # (Auto) 0.1 Abs Immat Gran (auto) 0.05 H Imm/Tot Granulo (auto) 0.5 PT 20.3 H INR 1.99 Sodium 130 L 129 L Potassium 3.4 L 2.2 L* Chloride 89 L 87 L Carbon Dioxide 34.3 H 32.0 Anion Gap 10.1 12.2 BUN 70.0 H 68.0 H Creatinine 3.13 H 3.12 H Est GFR ( Amer) 24 L 24 L Est GFR (Non-Af Amer) 20 L 20 L BUN/Creatinine Ratio 22.4 21.8 Glucose 301 H 228 H Calcium 8.5 8.8 POC Glucose 249 H Discharge Plan Discharge Disposition: Home, Self-Care Condition: Good Discharge Medications: New potassium chloride [Klor-Con M10] 10 mEq Tablet,Er Particles/Crystals 20 meq PO TID Qty: 90 11RF Continued atorvastatin 80 mg tablet 80 mg PO .QD carvedilol 25 mg tablet 25 mg PO Q12H Farxiga 10 mg tablet 10 mg PO DAILY aspirin [Adult Low Dose Aspirin] 81 mg tablet,delayed release (DR/EC) 81 mg PO DAILY hydrocodone-acetaminophen 5-325 mg tablet 1 tab PO Q8H PRN (Reason: pain, moderate) gabapentin 400 mg capsule 400 mg PO Q12H spironolactone 25 mg tablet 25 mg PO QAM furosemide 80 mg tablet 80 mg PO Q12H Patient Comments: takes with 20mg for total of 100mg twice daily levothyroxine 50 mcg tablet 50 mcg PO .ACB isosorbide dinitrate 20 mg tablet 20 mg PO BIDWM digoxin 125 mcg (0.125 mg) tablet 0.125 mg PO QDAY furosemide 20 mg tablet 20 mg PO BID Patient Comments: takes with 80mg tab twice a day for total of 100mg bid warfarin 2.5 mg tablet 2.5 mg PO DAILY Patient Comments: DIRECTED BY CLINIC nitroglycerin 0.4 mg tablet, sublingual 0.4 mg sublingual Q5M PRN (Reason: chest pain) hydralazine 50 mg tablet 50 mg PO Q8H Rx Instructions: PER RETAIL FILL HX - LAST FILLED 02/20/23 #270 FOR A 90 DAY SUPPLY cyanocobalamin (vitamin B-12) 1,000 mcg tablet extended release 1,000 mcg PO DAILY amitriptyline 25 mg tablet 25 mg PO .hs Rx Instructions: PER RETAIL FILL HX - LAST FILLED 01/30/23 #90 FOR A 90 DAY SUPPLY metolazone 2.5 mg Tablet 2.5 mg PO DAILY Discontinued potassium chloride 10 mEq tablet extended release 20 meq PO BID Qty: 0 0RF Patient Instructions: Hypokalemia (DC) Forms: Portal Instructions Follow Up Appointments: Follow up appt. with Dr. Neff on @ 10:30am Office #: [phone]
--- NOTE | 2023-06-21 10:40 | CM.NOTE ---
Medicare Outpatient Observation Notice discussed with pt, pt verbalizes understanding and signs paper. Original given to pt and copy placed on pt's chart.
--- NOTE | 2023-06-26 12:12 | CM.DCFOLLOWU ---
Person spoke with: Rey How are you feeling? ok How is your pain? not bad right now Did you understand your discharge instructions? yes Do you have any questions about your discharge instructions? no Were you given any prescriptions at discharge? Were you able to get your prescriptions filled? yes. Any new medications were picked up. Do you understand how to take your medications as ordered? yes Do you have any questions about your follow up appointment and do you plan to keep your follow up appointment? Seen Dr. Riley. Is there anything else that you would like to discuss? Home Health is to come tomorrow. Questions/Comments/Concerns/Other:
== END 2023-06-21 09:40 | disposition home or self-care (01) ==
LOC: ER 11:39 → MS 12:25
PROVIDERS: Admitting Provider Family Medicine; Emergency Provider Emergency Medicine; PCP Family Medicine; Visit Provider Family Medicine
DX: E87.6 Hypokalemia (principal); D50.9 Iron deficiency anemia, unspecified; E11.22 Type 2 diabetes mellitus with diabetic chronic kidney disease; I12.9 Hypertensive chronic kidney disease with stage 1 through stage 4 chronic kidney disease, or unspecified chronic kidney disease; N18.30 Chronic kidney disease, stage 3 unspecified; Z87.891 Personal history of nicotine dependence; Z79.82 Long term (current) use of aspirin; Z79.899 Other long term (current) drug therapy; Z79.890 Hormone replacement therapy
CPT/HCPCS: 36415; 80048; 82948; 85025; 85610; 93005; 94761; 96365; 96366; 99285; G0378

== ENCOUNTER 2023-06-23 11:40 | Outpatient (OUT) | payer MEDICARE, SELFPAY ==
[2023-06-23 12:37] LABS: Anion Gap 9.5; BUN Creatinine Ratio 27.5; Calcium 8.9 mg/dL (8.5-10.1); Carbon Dioxide 31.2 mmol/L (21.0-32.0); Chloride 92 mmol/L (98-107); Estimated GFR (African America 46 (>=60); Estimated GFR (Non-African Ame 38 (>=60); Glucose 217 mg/dL (74-106); Sodium 130 mmol/L (136-145)
[2023-06-23 15:06] LABS: Potassium 2.7 mmol/L (3.5-5.1)
== END 2023-06-23 11:41 | disposition home or self-care (01) ==
PROVIDERS: PCP Family Medicine; Visit Provider Family Medicine
DX: E87.6 Hypokalemia (principal)
CPT/HCPCS: 36415; 80048

== ENCOUNTER 2023-06-28 10:07 | Outpatient (OUT) | payer MEDICARE, SELFPAY | END 2023-06-28 10:08 | disposition home or self-care (01) | LOC: WC 10:07 | PROVIDERS: PCP Family Medicine; Visit Provider Surgery | DX: S81.811A Laceration without foreign body, right lower leg, initial encounter (principal); E11.621 Type 2 diabetes mellitus with foot ulcer; L97.512 Non-pressure chronic ulcer of other part of right foot with fat layer exposed; S91.101A Unspecified open wound of right great toe without damage to nail, initial encounter; S81.001A Unspecified open wound, right knee, initial encounter; S81.002A Unspecified open wound, left knee, initial encounter | CPT/HCPCS: G0463 ==

== ENCOUNTER 2023-07-03 12:50 | Outpatient (OUT) | payer MEDICARE, SELFPAY ==
--- NOTE | 2023-07-03 | XR_ITS ---
The [address] [address] Patient Name: ADWOA PORTER MRN: [id number] date: 1955 Sex: M Assigned Patient Location: Current Patient Location: Accession/Order Number: [id number] Exam Date: 07/03/2023 13:15 Report Date: 07/04/2023 07:12 At the request of: JORGE ARROYO Procedure: XR foot RT min 3V PROCEDURE: XR foot RT min 3V COMPARISON: 05/14/2023 HISTORY: RIGHT FOOT PAIN FINDINGS: BONES:3.2 mm noncorticated bone fragment identified along the medial head of the first proximal phalanx. Lytic changes to the subjacent head. No dislocations. Degenerative changes. SOFT TISSUES:Soft tissue swelling of the first toe. Extensive vascular calcifications. EFFUSION:None visible. OTHER: Negative. XR/XR foot RT min 3V IMPRESSION: Suspected osteomyelitis head of the first proximal phalanx with 3.2 mm displaced bone fragment Electronically authenticated by: BALBIR CABALLERO Date: 07/04/2023 07:12
== END 2023-07-03 12:51 | disposition home or self-care (01) ==
LOC: WC 12:50
PROVIDERS: PCP Family Medicine; Visit Provider Podiatrist Foot & Ankle Surgery
DX: S91.101A Unspecified open wound of right great toe without damage to nail, initial encounter (principal); S81.802A Unspecified open wound, left lower leg, initial encounter
CPT/HCPCS: 73630; G0463

== ENCOUNTER 2023-07-12 12:40 | Emergency (ER) | payer MEDICARE, SELFPAY ==
[2023-07-12 12:43] VITALS: BP 112/68; PULSE 80; RESP 16; TEMP 36.9; O2SAT 94; BMI 30.9
--- NOTE | 2023-07-12 13:15 | ED_ITS ---
HPI - General Adult General Chief complaint: Head Injury Stated complaint: FALL/HIT HEAD Time Seen by Provider: 07/12/23 13:06 Source: patient Mode of arrival: ambulance History of Present Illness HPI narrative: patient is a 68-year-old male who presents to the emergency department for a fall with head injury that occurred at home just prior to arrival. Patient states he slipped in his bathroom after getting out of the shower and hit his head. He sustained a small abrasion to the head although he has multiple scabs and wounds in various stages of healing that are chronic. He is on Coumadin for history of blood clot although he is not able to state if it is history of deep vein thrombosis or PE, he states he had a clot many years ago. Unknown tetanus status. He has a chronic wound to the right great toe that is being managed by [facility] across the street, although he states he would like this redress today. He denies any other associated injuries. Related Data Home Medications Medication Instructions Recorded Confirmed aspirin 81 mg tablet,delayed 81 mg PO DAILY 05/24/23 06/20/23 release (Adult Low Dose Aspirin) atorvastatin 80 mg tablet 80 mg PO .QD 05/24/23 06/20/23 carvedilol 25 mg tablet 25 mg PO Q12H 05/24/23 06/20/23 dapagliflozin propanediol 10 mg 10 mg PO DAILY 05/24/23 06/20/23 tablet (Farxiga) digoxin 125 mcg (0.125 mg) tablet 0.125 mg PO QDAY 05/24/23 06/20/23 furosemide 80 mg tablet 80 mg PO Q12H 05/24/23 06/20/23 gabapentin 400 mg capsule 400 mg PO Q12H 05/24/23 06/20/23 hydrocodone 5 mg-acetaminophen 325 1 tab PO Q8H PRN pain, moderate 05/24/23 06/20/23 mg tablet isosorbide dinitrate 20 mg tablet 20 mg PO BIDWM 05/24/23 06/20/23 levothyroxine 50 mcg tablet 50 mcg PO .ACB 05/24/23 06/20/23 spironolactone 25 mg tablet 25 mg PO QAM 05/24/23 06/20/23 amitriptyline 25 mg tablet 25 mg PO .hs 06/02/23 06/20/23 cyanocobalamin (vitamin B-12) 1,000 mcg PO DAILY 06/02/23 06/20/23 1,000 mcg tablet,extended release hydralazine 50 mg tablet 50 mg PO Q8H 06/02/23 06/20/23 metolazone 2.5 mg tablet 2.5 mg PO DAILY 06/02/23 06/20/23 nitroglycerin 0.4 mg sublingual 0.4 mg sublingual Q5M PRN chest 06/02/23 06/20/23 tablet pain warfarin 2.5 mg tablet 2.5 mg PO DAILY 06/02/23 06/20/23 furosemide 20 mg tablet 20 mg PO BID 06/20/23 06/20/23 Previous Rx's Medication Instructions Recorded potassium chloride 10 mEq 20 meq PO TID #90 tabs 06/21/23 tablet,extended release(part/cryst) (Klor-Con M) Allergies Allergy/AdvReac Type Severity Reaction Status Date / Time No Known Drug Allergies Allergy Verified 05/24/23 12:06 Review of Systems ROS Constitutional Denies: fever or chills Ears, nose, mouth, and throat Denies: throat pain or neck pain Cardiovascular Denies: chest pain Respiratory Denies: shortness of breath or cough Gastrointestinal Denies: nausea or vomiting Musculoskeletal Denies: back pain, neck pain or extremity pain Integumentary/Breast Denies: rash Neurological Denies: headache Hematologic/Lymphatic Reports: easy bruising Allergic/Immunologic Denies: hives [facility] Medical History (Updated 07/12/23 @ 14:39 by KAILEY Castillo) Surgical History (Updated 06/20/23 @ 13:44 by Susanna Gill) Family History Mother Family history of CHF (congestive heart failure) Brother Family history of cancer Social History Within the past year, how often did you have a drink containing alcohol: never Within the past year, how often did you have six or more drinks on one occasion: never Score interpretation: A score less than 4 is consistent with normal alcohol consumption. 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 Known occupational exposures/hazards: No Highest level of school completed/degree received: high school graduate Do you want help with school or training: No Are you now , , , , never or living with a partner: living with partner In a typical week, how many times do you talk on the telephone with family, friends, or neighbors: 3 or more times per week How often do you get together with friends or relatives: 3 or more times per week How often do you attend rastafari or yarsani services: never Do you belong to any clubs or organizations such as rastafari groups unions, [employer] or athletic groups, or school groups: no Total score: 2 Score interpretation: A score of greater than or equal to 2 indicates the lowest level of social isolation. Little interest or pleasure in doing things: not at all Feeling down, depressed, or hopeless: not at all Feel stressed/tense/nervous/anxious/difficulty sleeping: not at all Due to disability, difficulty making decisions: No Do you think of yourself as: straight/heterosexual Gender Identity: male Exam Narrative Exam Narrative: Gen.: Awake, alert, in no distress Head: Normocephalic, multiple scabs/abrasions in various stages of healing across the forehead, no deep lacerations or active bleeding at this time ENT: Moist mucous membranes, no dental or facial injury noted Back: no bony tenderness of the C-spine, T-spine or L-spine, no obvious deformity, no ecchymosis of the back. Respiratory: No respiratory distress, lungs clear bilaterally Cardio: Regular rate and rhythm Gastrointestinal: Abdomen is soft, nondistended and nontender to palpation Extremities: Moves extremities equally, pelvis is stable and hips are nontender with no bony tenderness of the lower extremities. Chronic wound noted to the dorsum of the right great toe with no surrounding erythema or drainage. Multiple abrasions in various stages of healing to the anterior shins and forearms. Psych: Normal mood and affect Neuro: No focal neuro deficit Skin: Warm, dry Constitutional Vital Signs, click to edit/add: Last Vital Signs Temp 98.4 F 07/12/23 12:43 Pulse 90 07/12/23 14:51 Resp 18 07/12/23 14:51 BP 134/71 07/12/23 14:51 Pulse Ox 94 L 07/12/23 14:51 O2 Del Method Room Air 07/12/23 14:51 Course Vital Signs Vital signs: Vital Signs Temperature 98.4 F 07/12/23 12:43 Pulse Rate 80 07/12/23 12:43 Respiratory Rate 16 07/12/23 12:43 Blood Pressure 112/68 07/12/23 12:43 Pulse Oximetry 94 L 07/12/23 12:43 Oxygen Delivery Method Room Air 07/12/23 12:43 Temperature 98.4 F 07/12/23 12:43 Pulse Rate 90 07/12/23 14:51 Respiratory Rate 18 07/12/23 14:51 Blood Pressure 134/71 07/12/23 14:51 Pulse Oximetry 94 L 07/12/23 14:51 Oxygen Delivery Method Room Air 07/12/23 14:51 Medical Decision Making MDM Narrative Medical decision making narrative: patient was sent for CTs of the head and C-spine based on mechanism of injury, although he does not have neck pain or back pain at this time. CT of the brain is unremarkable and CT of the C-spine show the patient has a questionable T1 fracture although the patient has no spinal tenderness or neck pain on reevaluation by attending physician at discharge. Patient noted to have an INR 5.7. He was instructed to hold his Coumadin until Sunday, a full three days and have his INR rechecked with his PCP. Return to the emergency department if symptoms change or worsen. Medical Records Medical records reviewed: Yes I reviewed the patient's medical records Lab Data Lab results reviewed: Yes I reviewed the patient's lab results Labs: Lab Results 07/12/23 Range/Units 13:20 WBC 13.3 H (4.0-11.0) 10^3/uL RBC 5.24 (4.70-6.10) 10^6/uL Hgb 14.4 (14.0-18.0) g/dL Hct 42.5 (42.0-54.0) % MCV 81.1 (80.0-94.0) fL MCH 27.5 (25.9-34.0) pg MCHC 33.9 (29.9-35.2) g/dL RDW 16.9 H (11.0-15.0) % Plt Count 298 (150-450) 10^3/uL MPV 10.2 (9.5-13.5) fL Neut % (Auto) 76.4 H (43.0-75.0) % Lymph % (Auto) 14.2 L (20.5-60.0) % [place] % (Auto) 7.2 (1.7-12.0) % Eos % (Auto) 1.3 (0.9-7.0) % Baso % (Auto) 0.4 (0.2-2.0) % Neut # (Auto) 10.2 H (1.4-6.5) 10^3/uL Lymph # (Auto) 1.9 (1.2-3.8) 10^3/uL [place] # (Auto) 1.0 H (0.3-0.8) 10^3/uL Eos # (Auto) 0.2 (0.0-0.7) 10^3/uL Baso # (Auto) 0.1 (0.0-0.1) 10^3/uL Abs Immat Gran (auto) 0.07 H (0.00-0.03) 10^3/uL Imm/Tot Granulo (auto) 0.5 (0.0-0.5) % PT 55.1 H* (9.0-11.6) sec INR 5.74 H* Imaging Data CT scan - head: Attestation: I have reviewed the pertinent imaging results. Radiologist's impression: Procedure: CT head/brain wo con CT head/brain wo con: 07/12/2023 1:18 PM EDT CLINICAL HISTORY: 68 years old Male with fall, takes blood thinners. TECHNIQUE: CT head/brain wo con was performed without intravenous contrast administration. Axial CT images are obtained as well as sagittal and coronal reformations. Dose reduction techniques were achieved by using automated exposure control and/or adjustment of mA and/or kV according to patient size and/or use of iterative reconstruction technique. COMPARISON: 01/09/2023 FINDINGS: The ventricles, gyri, sulcal patterns, and basal cisterns have a normal size and configuration for the patient's age. No intracranial hemorrhage or extra-axial fluid collection is identified. There is no evidence of focal mass or midline shift. Ill-defined hypoattenuating foci in the periventricular white matter are identified, likely microvascular ischemic disease. Ill-defined hypodense lesion of the subcortical white matter of the left parietal lobe, likely prior infarction, unchanged. The basal ganglia and thalami appear normal. The midbrain and cerebellum appear normal. The paranasal sinuses are normally aerated. Mastoid air cells are normally aerated. No appreciable scalp soft tissue swelling or depressed skull fractures are seen. IMPRESSION: No intracranial hemorrhage, mass effect or midline shift. No significant change from prior exam. Electronically authenticated by: IMTIAZ HEWITT Date: 07/12/2023 13:45 Procedure: CT cervical spine wo con EXAM: CT cervical spine wo con HISTORY: fall, head injury COMPARISON: None. TECHNIQUE: CT cervical spine without contrast. Multiplanar reformats obtained. The current study utilizes one or more of the following dose-reduction techniques: automated exposure control, iterative reconstruction, and/or manual adjustment of tube current and voltage for size. FINDINGS: Questionable T1 spinous process fracture, series 7 image 28. No other evidence of acute fracture or traumatic malalignment of the cervical spine. Age expected degenerative change. No prevertebral edema. Mild to moderate multilevel spinal canal stenosis. Moderate to severe multilevel and bilateral neural foraminal stenosis. 1.5 cm right thyroid nodule. Heavy atherosclerotic calcification of the carotid bifurcations. IMPRESSION: Questionable T1 spinous process fracture. No other acute traumatic findings of the cervical spine. 1.5 cm right thyroid nodule. Electronically authenticated by: SABA BOLDEN Date: 07/12/2023 13:48 Discharge Plan Discharge Chief Complaint: Head Injury Clinical Impression: Closed head injury, Elevated INR Patient Disposition: Home, Self-Care Time of Disposition Decision: 14:38 Condition: Good Prescriptions / Home Meds: No Action atorvastatin 80 mg tablet 80 mg PO .QD carvedilol 25 mg tablet 25 mg PO Q12H Farxiga 10 mg tablet 10 mg PO DAILY aspirin [Adult Low Dose Aspirin] 81 mg tablet,delayed release (DR/EC) 81 mg PO DAILY hydrocodone-acetaminophen 5-325 mg tablet 1 tab PO Q8H PRN (Reason: pain, moderate) gabapentin 400 mg capsule 400 mg PO Q12H spironolactone 25 mg tablet 25 mg PO QAM furosemide 80 mg tablet 80 mg PO Q12H Patient Comments: takes with 20mg for total of 100mg twice daily levothyroxine 50 mcg tablet 50 mcg PO .ACB isosorbide dinitrate 20 mg tablet 20 mg PO BIDWM digoxin 125 mcg (0.125 mg) tablet 0.125 mg PO QDAY furosemide 20 mg tablet 20 mg PO BID Patient Comments: takes with 80mg tab twice a day for total of 100mg bid potassium chloride [Klor-Con M10] 10 mEq Tablet,Er Particles/Crystals 20 meq PO TID Qty: 90 11RF warfarin 2.5 mg tablet 2.5 mg PO DAILY Patient Comments: DIRECTED BY CLINIC nitroglycerin 0.4 mg tablet, sublingual 0.4 mg sublingual Q5M PRN (Reason: chest pain) hydralazine 50 mg tablet 50 mg PO Q8H Rx Instructions: PER RETAIL FILL HX - LAST FILLED 02/20/23 #270 FOR A 90 DAY SUPPLY cyanocobalamin (vitamin B-12) 1,000 mcg tablet extended release 1,000 mcg PO DAILY amitriptyline 25 mg tablet 25 mg PO .hs Rx Instructions: PER RETAIL FILL HX - LAST FILLED 01/30/23 #90 FOR A 90 DAY SUPPLY metolazone 2.5 mg Tablet 2.5 mg PO DAILY Instructions: Head Injury (ED), Elevated INR (ED) Additional Instructions: DO NOT TAKE YOUR COUMADIN UNTIL Sunday07/15/23 - YOUR INR IS TOO HIGH TODAY, HAVE IT RECHECKED NEXT WEEK WITH YOUR DOCTOR Stand Alone Forms: Portal Instructions Referrals: VINNIE STEWART [Primary Care Provider] - 1 week Discharge Date/Time: 07/12/23 14:54
[2023-07-12] MEDS: ADACEL DIPH,PERTUSS(ACELL),TET VAC/PF 0.5 ML ADULT SYRINGE IM (13:21)
--- NOTE | 2023-07-12 13:30 | CT_ITS ---
The [address] [address] Patient Name: ADWOA PORTER MRN: [id number] date: 1955 Sex: M Assigned Patient Location: ER Current Patient Location: ER Accession/Order Number: [id number] Exam Date: 07/12/2023 13:18 Report Date: 07/12/2023 13:45 At the request of: LEVI BIRD Procedure: CT head/brain wo con CT head/brain wo con: 07/12/2023 1:18 PM EDT CLINICAL HISTORY: 68 years old Male with fall, takes blood thinners. TECHNIQUE: CT head/brain wo con was performed without intravenous contrast administration. Axial CT images are obtained as well as sagittal and coronal reformations. Dose reduction techniques were achieved by using automated exposure control and/or adjustment of mA and/or kV according to patient size and/or use of iterative reconstruction technique. COMPARISON: 01/09/2023 FINDINGS: The ventricles, gyri, sulcal patterns, and basal cisterns have a normal size and configuration for the patient's age. No intracranial hemorrhage or extra-axial fluid collection is identified. There is no evidence of focal mass or midline shift. Ill-defined hypoattenuating foci in the periventricular white matter are identified, likely microvascular ischemic disease. Ill-defined hypodense lesion of the subcortical white matter of the left parietal lobe, likely prior infarction, unchanged. The basal ganglia and thalami appear normal. The midbrain and cerebellum appear normal. The paranasal sinuses are normally aerated. Mastoid air cells are normally aerated. No appreciable scalp soft tissue swelling or depressed skull fractures are seen. CT/CT head/brain wo con IMPRESSION: No intracranial hemorrhage, mass effect or midline shift. No significant change from prior exam. Electronically authenticated by: IMTIAZ HEWITT Date: 07/12/2023 13:45
--- NOTE | 2023-07-12 13:30 | CT_ITS ---
The [address] [address] Patient Name: ADWOA PORTER MRN: [id number] date: 1955 Sex: M Assigned Patient Location: ER Current Patient Location: ER Accession/Order Number: [id number] Exam Date: 07/12/2023 13:18 Report Date: 07/12/2023 13:48 At the request of: LEVI BIRD Procedure: CT cervical spine wo con EXAM: CT cervical spine wo con HISTORY: fall, head injury COMPARISON: None. TECHNIQUE: CT cervical spine without contrast. Multiplanar reformats obtained. The current study utilizes one or more of the following dose-reduction techniques: automated exposure control, iterative reconstruction, and/or manual adjustment of tube current and voltage for size. FINDINGS: Questionable T1 spinous process fracture, series 7 image 28. No other evidence of acute fracture or traumatic malalignment of the cervical spine. Age expected degenerative change. No prevertebral edema. Mild to moderate multilevel spinal canal stenosis. Moderate to severe multilevel and bilateral neural foraminal stenosis. 1.5 cm right thyroid nodule. Heavy atherosclerotic calcification of the carotid bifurcations. CT/CT cervical spine wo con IMPRESSION: Questionable T1 spinous process fracture. No other acute traumatic findings of the cervical spine. 1.5 cm right thyroid nodule. Electronically authenticated by: SABA BOLDEN Date: 07/12/2023 13:48
[2023-07-12 13:54] VITALS: BP 125/70; PULSE 85; RESP 16; O2SAT 90
[2023-07-12 13:54] LABS: Basophils Absolute Auto 0.1 10^3/uL (0.0-0.1); Basophils Percent Auto 0.4 % (0.2-2.0); Eosinophils Absolute Auto 0.2 10^3/uL (0.0-0.7); Eosinophils Percent Auto 1.3 % (0.9-7.0); Hematocrit 42.5 % (42.0-54.0); Hemoglobin 14.4 g/dL (14.0-18.0); Immature Granulocytes Abs Auto 0.07 10^3/uL (0.00-0.03); Immature Granulocytes Pct Auto 0.5 % (0.0-0.5); Lymphocytes Absolute Auto 1.9 10^3/uL (1.2-3.8); Lymphocytes Percent Auto 14.2 % (20.5-60.0); Mean Corpuscular HGB Conc 33.9 g/dL (29.9-35.2); Mean Corpuscular Hemoglobin 27.5 pg (25.9-34.0); Mean Corpuscular Volume 81.1 fL (80.0-94.0); Mean Platelet Volume 10.2 fL (9.5-13.5); Monocytes Percent Auto 7.2 % (1.7-12.0); Neutrophils Absolute Auto 10.2 10^3/uL (1.4-6.5); Neutrophils Percent Auto 76.4 % (43.0-75.0); Platelet Count 298 10^3/uL (150-450); Red Blood Count 5.24 10^6/uL (4.70-6.10); Red Cell Distribution Width 16.9 % (11.0-15.0); White Blood Count 13.3 10^3/uL (4.0-11.0)
[2023-07-12 14:29] LABS: INR 5.74; Prothrombin Time 55.1 sec (9.0-11.6)
[2023-07-12 14:51] VITALS: BP 134/71; PULSE 90; RESP 18; O2SAT 94
== END 2023-07-12 14:54 | disposition home or self-care (01) ==
PROVIDERS: Physician Assistant; Emergency Provider Emergency Medicine; PCP Family Medicine
DX: S09.8XXA Other specified injuries of head, initial encounter (principal); R79.1 Abnormal coagulation profile; W19.XXXA Unspecified fall, initial encounter; Z79.01 Long term (current) use of anticoagulants; Z79.82 Long term (current) use of aspirin; Z79.899 Other long term (current) drug therapy; Z79.890 Hormone replacement therapy; Z87.891 Personal history of nicotine dependence; Z23 Encounter for immunization
CPT/HCPCS: 36415; 70450; 72125; 85025; 85610; 90471; 90715; 99284

== ENCOUNTER 2023-07-20 08:32 | Outpatient (RCR) | payer MEDICARE, SELFPAY | END 2023-08-17 16:36 | disposition home or self-care (01) | LOC: MM 08:32 | PROVIDERS: PCP Family Medicine; Visit Provider Internal Medicine | DX: Z51.81 Encounter for therapeutic drug level monitoring (principal); Z79.01 Long term (current) use of anticoagulants; I48.91 Unspecified atrial fibrillation | CPT/HCPCS: 85610; G0463 ==

== ENCOUNTER 2023-07-27 13:56 | Outpatient (OUT) | payer MEDICARE, SELFPAY ==
--- NOTE | 2023-07-27 14:18 | XR_ITS ---
The [address] [address] Patient Name: ADWOA PORTER MRN: [id number] date: 1955 Sex: M Assigned Patient Location: [facility] Current Patient Location: ED.[facility] Accession/Order Number: [id number] Exam Date: 07/27/2023 14:09 Report Date: 07/27/2023 14:30 At the request of: VINNIE STEWART Procedure: XR chest 2V EXAM: XR chest 2V HISTORY: Acute cough R05.1 COMPARISON: 06/02/2023 TECHNIQUE: Upright PA and lateral chest x-ray FINDINGS: The heart is at the upper limits of normal in size with vascular congestion diffusely. Slight blunting of the right costophrenic angle indicates a small effusion. No acute infiltrate, effusion or pneumothorax is otherwise identified. The left-sided pacemaker remains in place. The osseous structures are grossly intact. XR/XR chest 2V IMPRESSION: Mildly increasing vascular congestion with a very small right pleural effusion raise the possibility of early cardiac decompensation. A discrete infiltrate is not identified. The overall appearance of the chest is otherwise unchanged. Electronically authenticated by: JORGE SCOTT Date: 07/27/2023 14:30
== END 2023-07-27 13:57 | disposition home or self-care (01) ==
LOC: RAD 13:59
PROVIDERS: PCP Family Medicine; Visit Provider Family Medicine
DX: R05.1 Acute cough (principal)
CPT/HCPCS: 71046

== ENCOUNTER 2023-07-31 13:42 | Emergency (ER) | payer MEDICARE, SELFPAY ==
--- NOTE | 2023-07-31 13:46 | ECG_ITS ---
The [facility] Test Date: 2023-07-31 Pat Name: ADWOA PORTER Department: Room: - Gender: Male Web Developer: : 1955 Requested By: [id number] Order Number: [id number] Reading MD: DEEPAK FOURNIER Measurements Intervals Fiatt Rate: 56 P: -60348 [place]: -60352 QRS: -86 QRSD: 120 T: 76 QT: 398 QTc: 391 Interpretive Statements Electronic pacemaker Electronically Signed On 08-01-2023 5:37:17 EDT by DEEPAK FOURNIER
[2023-07-31 13:47] VITALS: BP 103/63; PULSE 85; RESP 20; TEMP 36.6; O2SAT 94; BMI 30.7
--- NOTE | 2023-07-31 13:57 | ED_ITS ---
HPI - General Adult General Chief complaint: Shortness of Breath/Dyspnea Stated complaint: COUGHING UP BLOOD Time Seen by Provider: 07/31/23 13:45 History of Present Illness HPI narrative: patient is a 68-year-old male with a complex medical history who presents to the Emergency Room for hemoptysis over the last several days. Patient states he was seen by the Coumadin clinic last week to monitor his INR and he was found to have an INR over 8.0. He was instructed to hold his Coumadin and when it was rechecked in the last day it was down to 1.4. He states he has had a cough with sputum production over the last several days and has been coughing bright red blood. He has had no chest pain, fevers, vomiting or difficulty breathing. He has a history of congestive heart failure and is concerned that he may be also having a congestive heart failure exacerbation. He did an outpatient chest x-ray last week with his PCP. Related Data Home Medications Medication Instructions Recorded Confirmed aspirin 81 mg tablet,delayed 81 mg PO DAILY 05/24/23 06/20/23 release (Adult Low Dose Aspirin) atorvastatin 80 mg tablet 80 mg PO .QD 05/24/23 06/20/23 carvedilol 25 mg tablet 25 mg PO Q12H 05/24/23 06/20/23 dapagliflozin propanediol 10 mg 10 mg PO DAILY 05/24/23 06/20/23 tablet (Farxiga) digoxin 125 mcg (0.125 mg) tablet 0.125 mg PO QDAY 05/24/23 06/20/23 furosemide 80 mg tablet 80 mg PO Q12H 05/24/23 06/20/23 gabapentin 400 mg capsule 400 mg PO Q12H 05/24/23 06/20/23 hydrocodone 5 mg-acetaminophen 325 1 tab PO Q8H PRN pain, moderate 05/24/23 06/20/23 mg tablet isosorbide dinitrate 20 mg tablet 20 mg PO BIDWM 05/24/23 06/20/23 levothyroxine 50 mcg tablet 50 mcg PO .ACB 05/24/23 06/20/23 spironolactone 25 mg tablet 25 mg PO QAM 05/24/23 06/20/23 amitriptyline 25 mg tablet 25 mg PO .hs 06/02/23 06/20/23 cyanocobalamin (vitamin B-12) 1,000 mcg PO DAILY 06/02/23 06/20/23 1,000 mcg tablet,extended release hydralazine 50 mg tablet 50 mg PO Q8H 06/02/23 06/20/23 metolazone 2.5 mg tablet 2.5 mg PO DAILY 06/02/23 06/20/23 nitroglycerin 0.4 mg sublingual 0.4 mg sublingual Q5M PRN chest 06/02/23 06/20/23 tablet pain warfarin 2.5 mg tablet 2.5 mg PO DAILY 06/02/23 06/20/23 furosemide 20 mg tablet 20 mg PO BID 06/20/23 06/20/23 Previous Rx's Medication Instructions Recorded potassium chloride 10 mEq 20 meq PO TID #90 tabs 06/21/23 tablet,extended release(part/cryst) (Klor-Con M) Allergies Allergy/AdvReac Type Severity Reaction Status Date / Time No Known Drug Allergies Allergy Verified 07/31/23 13:47 Review of Systems ROS Constitutional Denies: fever or chills Cardiovascular Denies: chest pain Respiratory Reports: cough and coughing up blood; Denies: shortness of breath Gastrointestinal Denies: nausea or vomiting Musculoskeletal Denies: back pain Integumentary/Breast Denies: rash Neurological Denies: headache Hematologic/Lymphatic Reports: easy bruising and easy bleeding [facility] Medical History (Updated 07/31/23 @ 16:03 by KAILEY Castillo) Surgical History (Updated 06/20/23 @ 13:44 by Susanna Gill) Family History Mother Family history of CHF (congestive heart failure) Brother Family history of cancer Social History Within the past year, how often did you have a drink containing alcohol: never Within the past year, how often did you have six or more drinks on one occasion: never Score interpretation: A score less than 4 is consistent with normal alcohol consumption. 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 Known occupational exposures/hazards: No Highest level of school completed/degree received: high school graduate Do you want help with school or training: No Are you now , , , , never or living with a partner: living with partner In a typical week, how many times do you talk on the telephone with family, friends, or neighbors: 3 or more times per week How often do you get together with friends or relatives: 3 or more times per week How often do you attend presybeterian or mandaeism services: never Do you belong to any clubs or organizations such as presybeterian groups unions, fraternal or athletic groups, or school groups: no Total score: 2 Score interpretation: A score of greater than or equal to 2 indicates the lowest level of social isolation. Little interest or pleasure in doing things: not at all Feeling down, depressed, or hopeless: not at all Feel stressed/tense/nervous/anxious/difficulty sleeping: not at all Due to disability, difficulty making decisions: No Do you think of yourself as: straight/heterosexual Gender Identity: male Exam Narrative Exam Narrative: Gen.: Awake, alert, in no distress Head: Normocephalic, atraumatic ENT: Moist mucous membranes Respiratory: No respiratory distress, faint expiratory wheezing Cardio: Regular rate and rhythm Extremities: Moves extremities equally, multiple scabbed abrasions noted to the anterior tibias, 1+ pitting edema to the bilateral lower extremities Psych: Normal mood and affect Neuro: No focal neuro deficit Skin: Warm, dry, intact Constitutional Vital Signs, click to edit/add: Last Vital Signs Temp 97.8 F 07/31/23 13:47 Pulse 85 07/31/23 13:47 Resp 07/31/23 13:47 BP 103/63 07/31/23 13:47 Pulse Ox 94 L 07/31/23 13:47 O2 Del Method Room Air 07/31/23 13:47 Course Vital Signs Vital signs: Vital Signs Temperature 97.8 F 07/31/23 13:47 Pulse Rate 85 07/31/23 13:47 Respiratory Rate 07/31/23 13:47 Blood Pressure 103/63 07/31/23 13:47 Pulse Oximetry 94 L 07/31/23 13:47 Oxygen Delivery Method Room Air 07/31/23 13:47 Temperature 97.8 F 07/31/23 13:47 Pulse Rate 85 07/31/23 13:47 Respiratory Rate 20 09/12/23 13:47 Blood Pressure 103/63 07/31/23 13:47 Pulse Oximetry 94 L 07/31/23 13:47 Oxygen Delivery Method Room Air 07/31/23 13:47 Medical Decision Making MDM Narrative Medical decision making narrative: lab studies show stable hemoglobin, INR 1.6. Creatinine is too high for CT of the chest with contrast so CT was performed without contrast showing no evidence of acute process, focal mass or pericardial effusion. Patient wears oxygen at home as needed and will continue this, he was given education and reassurance. Follow-up with PCP and return to the Emergency Room if symptoms change or worsen. No complaints of chest pain in the Emergency Room. Medical Records Medical records reviewed: Yes I reviewed the patient's medical records Lab Data Lab results reviewed: Yes I reviewed the patient's lab results Labs: Lab Results 07/31/23 Range/Units 14:40 WBC 10.3 (4.0-11.0) 10^3/uL RBC 3.67 L (4.70-6.10) 10^6/uL Hgb 10.5 L (14.0-18.0) g/dL Hct 32.9 L (42.0-54.0) % MCV 89.6 (80.0-94.0) fL MCH 28.6 (25.9-34.0) pg MCHC 31.9 (29.9-35.2) g/dL RDW 21.2 H (11.0-15.0) % Plt Count 179 (150-450) 10^3/uL MPV 10.3 (9.5-13.5) fL Neut % (Auto) 77.2 H (43.0-75.0) % Lymph % (Auto) 13.3 L (20.5-60.0) % [place] % (Auto) 5.5 (1.7-12.0) % Eos % (Auto) 3.0 (0.9-7.0) % Baso % (Auto) 0.3 (0.2-2.0) % Neut # (Auto) 7.9 H (1.4-6.5) 10^3/uL Lymph # (Auto) 1.4 (1.2-3.8) 10^3/uL [place] # (Auto) 0.6 (0.3-0.8) 10^3/uL Eos # (Auto) 0.3 (0.0-0.7) 10^3/uL Baso # (Auto) 0.0 (0.0-0.1) 10^3/uL Abs Immat Gran (auto) 0.07 H (0.00-0.03) 10^3/uL Imm/Tot Granulo (auto) 0.7 H (0.0-0.5) % PT 16.7 H (9.0-11.6) sec INR 1.62 Sodium 134 L (136-145) mmol/L Potassium 4.8 (3.5-5.1) mmol/L Chloride 99 (98-107) mmol/L Carbon Dioxide 27.5 (21.0-32.0) mmol/L Anion Gap 12.3 BUN 25.0 H (7.0-18.0) mg/dL Creatinine 2.22 H (0.70-1.30) mg/dL Est GFR ( Amer) 36 L (>=60) Est GFR (Non-Af Amer) 30 L (>=60) BUN/Creatinine Ratio 11.3 Glucose 289 H (74-106) mg/dL Calcium 7.9 L (8.5-10.1) mg/dL Total Bilirubin 0.8 (0.2-1.0) mg/dL AST 42 H (15-37) U/L ALT 37 (16-63) U/L Alkaline Phosphatase 156 H (46-116) U/L Troponin I High Sens 18.2 (4.0-76.1) pg/mL NT-Pro-B Natriuret Pep 6072.0 H* (<=900.0) pg/mL Total Protein 7.4 (6.4-8.2) g/dL Albumin 3.0 L (3.4-5.0) g/dL Globulin 4.4 g/dL Albumin/Globulin Ratio 0.[address] scan - chest: Attestation: I have reviewed the pertinent imaging results. Radiologist's impression: Procedure: CT chest wo con EXAMINATION: CT chest wo con HISTORY: Hemoptysis COMPARISON: 06/02/2023 TECHNIQUE: Multi-planar CT images were created with IV contrast. Axial, Coronal, and Sagittal images. Dose reduction techniques were achieved by using automated exposure control and/or adjustment of mA and/or kV according to patient size and/or use of iterative reconstruction technique. FINDINGS: LUNGS: Calcified tracheobronchial tree. Mild peribronchial thickening. Scattered calcified and noncalcified pulmonary nodules, nonspecific. Few areas of patchy infiltrate the largest in the medial right lower lobe measures 1.5 cm axial image #75, an area of atelectasis is favored PLEURA: 2 cm right and 0.5 cm left pleural effusions. No pneumothorax. VASCULATURE: No abnormality. MICHEL: No pathologic lymphadenopathy MEDIASTINUM: Extensive mediastinal lymphadenopathy with increased number of normal and enlarged lymph nodes, grossly stable CARDIAC: Moderate stable cardiomegaly. No pericardial effusion. AORTA: No aortic aneurysm. Moderate atherosclerosis CHEST WALL: Increased number of normal and mildly enlarged left axillary lymph nodes with some mild stranding. Left-sided pacemaker. BONES: No bone lesion or fracture. LIMITED ABDOMEN: Minimally nodular liver contour. Mild ascites with a perihepatic/perisplenic distribution. Left adrenal nodule. OTHER: Negative. IMPRESSION: No focal lung mass Mild peribronchial thickening Cardiomegaly Small pleural effusions Mild ascites Stable mediastinal and left axillary lymphadenopathy of indeterminate etiology Electronically authenticated by: BALBIR CABALLERO Date: 07/31/2023 15:55 ECG Data Attestation: I personally reviewed and interpreted this ECG as follows: (paced rhythm at a rate of fifty-six, no acute ST elevation, no ectopy. no change from EKG 03/26/23. Artifact noted. EKG reviewed by attending physician) Discharge Plan Discharge Chief Complaint: Shortness of Breath/Dyspnea Clinical Impression: Hemoptysis Patient Disposition: Home, Self-Care Time of Disposition Decision: 16:03 Condition: Good Prescriptions / Home Meds: No Action atorvastatin 80 mg tablet 80 mg PO .QD carvedilol 25 mg tablet 25 mg PO Q12H Farxiga 10 mg tablet 10 mg PO DAILY aspirin [Adult Low Dose Aspirin] 81 mg tablet,delayed release (DR/EC) 81 mg PO DAILY hydrocodone-acetaminophen 5-325 mg tablet 1 tab PO Q8H PRN (Reason: pain, moderate) gabapentin 400 mg capsule 400 mg PO Q12H spironolactone 25 mg tablet 25 mg PO QAM furosemide 80 mg tablet 80 mg PO Q12H Patient Comments: takes with 20mg for total of 100mg twice daily levothyroxine 50 mcg tablet 50 mcg PO .ACB isosorbide dinitrate 20 mg tablet 20 mg PO BIDWM digoxin 125 mcg (0.125 mg) tablet 0.125 mg PO QDAY furosemide 20 mg tablet 20 mg PO BID Patient Comments: takes with 80mg tab twice a day for total of 100mg bid potassium chloride [Klor-Con M10] 10 mEq Tablet,Er Particles/Crystals 20 meq PO TID Qty: 90 11RF warfarin 2.5 mg tablet 2.5 mg PO DAILY Patient Comments: DIRECTED BY CLINIC nitroglycerin 0.4 mg tablet, sublingual 0.4 mg sublingual Q5M PRN (Reason: chest pain) hydralazine 50 mg tablet 50 mg PO Q8H Rx Instructions: PER RETAIL FILL HX - LAST FILLED 02/20/23 #270 FOR A 90 DAY SUPPLY cyanocobalamin (vitamin B-12) 1,000 mcg tablet extended release 1,000 mcg PO DAILY amitriptyline 25 mg tablet 25 mg PO .hs Rx Instructions: PER RETAIL FILL HX - LAST FILLED 01/30/23 #90 FOR A 90 DAY SUPPLY metolazone 2.5 mg Tablet 2.5 mg PO DAILY Instructions: Coughing Up Blood (Hemoptysis) (ED) Stand Alone Forms: Portal Instructions Referrals: VINNIE STEWART [Primary Care Provider] - 1 week
[2023-07-31 15:14] LABS: Basophils Percent Auto 0.3 % (0.2-2.0); Eosinophils Absolute Auto 0.3 10^3/uL (0.0-0.7); Hematocrit 32.9 % (42.0-54.0); Hemoglobin 10.5 g/dL (14.0-18.0); Immature Granulocytes Abs Auto 0.07 10^3/uL (0.00-0.03); Immature Granulocytes Pct Auto 0.7 % (0.0-0.5); Lymphocytes Absolute Auto 1.4 10^3/uL (1.2-3.8); Lymphocytes Percent Auto 13.3 % (20.5-60.0); Mean Corpuscular HGB Conc 31.9 g/dL (29.9-35.2); Mean Corpuscular Hemoglobin 28.6 pg (25.9-34.0); Mean Corpuscular Volume 89.6 fL (80.0-94.0); Mean Platelet Volume 10.3 fL (9.5-13.5); Monocytes Absolute Auto 0.6 10^3/uL (0.3-0.8); Monocytes Percent Auto 5.5 % (1.7-12.0); Neutrophils Absolute Auto 7.9 10^3/uL (1.4-6.5); Neutrophils Percent Auto 77.2 % (43.0-75.0); Platelet Count 179 10^3/uL (150-450); Red Blood Count 3.67 10^6/uL (4.70-6.10); Red Cell Distribution Width 21.2 % (11.0-15.0); White Blood Count 10.3 10^3/uL (4.0-11.0)
[2023-07-31 15:19] LABS: Alanine Aminotransferase 37 U/L (16-63); Albumin Globulin Ratio 0.7; Alkaline Phosphatase 156 U/L (46-116); Anion Gap 12.3; Aspartate Amino Transferase 42 U/L (15-37); BUN Creatinine Ratio 11.3; Bilirubin Total 0.8 mg/dL (0.2-1.0); Calcium 7.9 mg/dL (8.5-10.1); Carbon Dioxide 27.5 mmol/L (21.0-32.0); Chloride 99 mmol/L (98-107); Estimated GFR (African America 36 (>=60); Estimated GFR (Non-African Ame 30 (>=60); Globulin 4.4 g/dL; Glucose 289 mg/dL (74-106); Potassium 4.8 mmol/L (3.5-5.1); Sodium 134 mmol/L (136-145); Total Protein 7.4 g/dL (6.4-8.2)
[2023-07-31 15:25] LABS: Troponin I High Sensitivity 18.2 pg/mL (4.0-76.1)
--- NOTE | 2023-07-31 15:25 | CT_ITS ---
[address] [address] Patient Name: ADWOA PORTER MRN: [id number] date: 1955 Sex: M Assigned Patient Location: ER Current Patient Location: ER Accession/Order Number: [id number] Exam Date: 07/31/2023 15:27 Report Date: 07/31/2023 15:55 At the request of: ALMA DELIA CHAVIS Procedure: CT chest wo con EXAMINATION: CT chest wo con HISTORY: Hemoptysis COMPARISON: 06/02/2023 TECHNIQUE: Multi-planar CT images were created with IV contrast. Axial, Coronal, and Sagittal images. Dose reduction techniques were achieved by using automated exposure control and/or adjustment of mA and/or kV according to patient size and/or use of iterative reconstruction technique. FINDINGS: LUNGS: Calcified tracheobronchial tree. Mild peribronchial thickening. Scattered calcified and noncalcified pulmonary nodules, nonspecific. Few areas of patchy infiltrate the largest in the medial right lower lobe measures 1.5 cm axial image #75, an area of atelectasis is favored PLEURA: 2 cm right and 0.5 cm left pleural effusions. No pneumothorax. VASCULATURE: No abnormality. MICHEL: No pathologic lymphadenopathy MEDIASTINUM: Extensive mediastinal lymphadenopathy with increased number of normal and enlarged lymph nodes, grossly stable CARDIAC: Moderate stable cardiomegaly. No pericardial effusion. AORTA: No aortic aneurysm. Moderate atherosclerosis CHEST WALL: Increased number of normal and mildly enlarged left axillary lymph nodes with some mild stranding. Left-sided pacemaker. BONES: No bone lesion or fracture. LIMITED ABDOMEN: Minimally nodular liver contour. Mild ascites with a perihepatic/perisplenic distribution. Left adrenal nodule. OTHER: Negative. CT/CT chest wo con IMPRESSION: No focal lung mass Mild peribronchial thickening Cardiomegaly Small pleural effusions Mild ascites Stable mediastinal and left axillary lymphadenopathy of indeterminate etiology Electronically authenticated by: BALBIR CABALLERO Date: 07/31/2023 15:55
[2023-07-31 15:38] LABS: INR 1.62; Prothrombin Time 16.7 sec (9.0-11.6)
== END 2023-07-31 16:23 | disposition home or self-care (01) ==
PROVIDERS: Physician Assistant; Emergency Provider Emergency Medicine; PCP Family Medicine
DX: R04.2 Hemoptysis (principal); I50.9 Heart failure, unspecified; Z79.82 Long term (current) use of aspirin; Z79.899 Other long term (current) drug therapy; Z79.890 Hormone replacement therapy; Z79.01 Long term (current) use of anticoagulants; Z87.891 Personal history of nicotine dependence
CPT/HCPCS: 36415; 71250; 80053; 83880; 84484; 85025; 85610; 93005; 99285; G0463

== ENCOUNTER 2023-08-03 12:16 | Inpatient (IN) | payer MEDICARE, SELFPAY ==
[2023-08-03] VITALS (24 sets, daily range): BP systolic 92–129; BP diastolic 61–85; PULSE 85–95; RESP 16–24; TEMP 36.4–36.7; O2SAT 83–100; BMI 30.1; BMI 35.6
--- NOTE | 2023-08-03 12:28 | XR_ITS ---
The [address] [address] Patient Name: ADWOA PORTER MRN: [id number] date: 1955 Sex: M Assigned Patient Location: ER Current Patient Location: ER Accession/Order Number: [id number] Exam Date: 08/03/2023 12:50 Report Date: 08/03/2023 13:17 At the request of: KAYLEE BARRAGAN Procedure: XR chest 1V EXAM: XR chest 1V HISTORY: SOB COMPARISON: 06/02/2023 TECHNIQUE: AP view of the chest. FINDINGS: The cardiomediastinal silhouette is enlarged. Stable left-sided cardiac pacemaker. Interstitial opacity. There is no pneumothorax. No pleural effusion is noted. The osseous structures are intact. XR/XR chest 1V IMPRESSION: Cardiomegaly with congestion. Electronically authenticated by: IMTIAZ HEWITT Date: 08/03/2023 13:17
--- NOTE | 2023-08-03 12:28 | ECG_ITS ---
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1955 Requested By: Order Number: [id number] Reading MD: DEEPAK FOURNIER Measurements Intervals [place] Rate: 78 P: -[id number] [place]: -[id number] QRS: -76 QRSD: 124 T: 64 QT: 380 QTc: 413 Interpretive Statements 1570 with occasional ventricular premature complexes 55307 Electronic ventricular pacemaker 1902 Undetermined rhythm 3334 Anterolateral myocardial infarction, age undetermined 07055 Inferior myocardial infarction with posterior extension, age undetermined 0201 -- Analysis based on intrinsic rhythm 9150 abnormal ECG Compared to ECG 07/31/2023 13:56:46 Ventricular premature complex(es) now present Myocardial infarct finding now present Electronically Signed On 08-06-2023 13:04:53 EDT by DEEPAK FOURNIER
--- NOTE | 2023-08-03 12:33 | ED.GENADUL1 ---
Documented by User: KAILEY Whitney 08/03/23 14:11 HPI - General Adult General Chief complaint: Shortness of Breath/Dyspnea Stated complaint: SHORTNESS OF BREATH Time Seen by Provider: 08/03/23 12:22 Source: family Mode of arrival: walk-in Limitations: no limitations History of Present Illness HPI narrative: patient is a 68-year-old male presents by private car for evaluation of shortness of breath and fluid retention. Patient was recently seen in the Emergency Room three days ago for hemoptysis with elevated INR. Patient notes he's had a semi-productive cough, no blood in his sputum of recent but does have some blood in his urine. He denies any fevers or chills. Home health nurse concerned with. Edema in the lower legs and patient's shortness of breath. patient admits he tried to vacuum a couple rooms today and became short of breath. He occasionally wears oxygen 2-3 L per min at home while sleeping, but more recently has been wearing it during the day. Patient notes chest discomfort mainly with cough. Patient admits to burning fingertips on a frying cummins, denies any smoking for several years. Radiation: Reports non-radiation Related Data Home Medications Medication Instructions Recorded Confirmed aspirin 81 mg tablet,delayed 81 mg PO DAILY 05/24/23 06/20/23 release (Adult Low Dose Aspirin) atorvastatin 80 mg tablet 80 mg PO .QD 05/24/23 06/20/23 carvedilol 25 mg tablet 25 mg PO Q12H 05/24/23 06/20/23 dapagliflozin propanediol 10 mg 10 mg PO DAILY 05/24/23 06/20/23 tablet (Farxiga) digoxin 125 mcg (0.125 mg) tablet 0.125 mg PO QDAY 05/24/23 06/20/23 furosemide 80 mg tablet 80 mg PO Q12H 05/24/23 06/20/23 gabapentin 400 mg capsule 400 mg PO Q12H 05/24/23 06/20/23 hydrocodone 5 mg-acetaminophen 325 1 tab PO Q8H PRN pain, moderate 05/24/23 06/20/23 mg tablet isosorbide dinitrate 20 mg tablet 20 mg PO BIDWM 05/24/23 06/20/23 levothyroxine 50 mcg tablet 50 mcg PO .ACB 05/24/23 06/20/23 spironolactone 25 mg tablet 25 mg PO QAM 05/24/23 06/20/23 amitriptyline 25 mg tablet 25 mg PO .hs 06/02/23 06/20/23 cyanocobalamin (vitamin B-12) 1,000 mcg PO DAILY 06/02/23 06/20/23 1,000 mcg tablet,extended release hydralazine 50 mg tablet 50 mg PO Q8H 06/02/23 06/20/23 metolazone 2.5 mg tablet 2.5 mg PO DAILY 06/02/23 06/20/23 nitroglycerin 0.4 mg sublingual 0.4 mg sublingual Q5M PRN chest 06/02/23 06/20/23 tablet pain warfarin 2.5 mg tablet 2.5 mg PO DAILY 06/02/23 06/20/23 furosemide 20 mg tablet 20 mg PO BID 06/20/23 06/20/23 Previous Rx's Medication Instructions Recorded potassium chloride 10 mEq 20 meq PO TID #90 tabs 06/21/23 tablet,extended release(part/cryst) ([place]-Con M) Allergies Allergy/AdvReac Type Severity Reaction Status Date / Time No Known Drug Allergies Allergy Verified 07/31/23 13:47 Review of Systems ROS Constitutional Denies: fever or chills Eyes Denies: change in vision Cardiovascular Reports: chest pain, edema and swelling of feet/ankles; Denies: palpitations Respiratory Reports: shortness of breath, cough and wheezing Gastrointestinal Denies: abdominal pain, nausea or vomiting Musculoskeletal Reports: extremity swelling; Denies: back pain, neck pain or extremity pain Integumentary/Breast Reports: skin swelling, sores (right leg sores) and changes in skin color (chronic dependent edema); Denies: rash or itching Neurological Denies: headache Psychiatric Denies: anxiety or mood swings Endocrine Denies: excessive urination Hematologic/Lymphatic Reports: easy bruising Allergic/Immunologic Denies: hives [facility] Medical History (Updated 08/03/23 @ 14:11 by KAILEY Whitney) Surgical History (Updated 06/20/23 @ 13:44 by Susanna Gill) Family History Mother Family history of CHF (congestive heart failure) Brother Family history of cancer Social History Within the past year, how often did you have a drink containing alcohol: never Within the past year, how often did you have six or more drinks on one occasion: never Score interpretation: A score less than 4 is consistent with normal alcohol consumption. 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 Known occupational exposures/hazards: No Highest level of school completed/degree received: high school graduate Do you want help with school or training: No Are you now , , , , never or living with a partner: living with partner In a typical week, how many times do you talk on the telephone with family, friends, or neighbors: 3 or more times per week How often do you get together with friends or relatives: 3 or more times per week How often do you attend presybeterian or yazidism services: never Do you belong to any clubs or organizations such as presybeterian groups unions, [employer] or athletic groups, or school groups: no Total score: 2 Score interpretation: A score of greater than or equal to 2 indicates the lowest level of social isolation. Little interest or pleasure in doing things: not at all Feeling down, depressed, or hopeless: not at all Feel stressed/tense/nervous/anxious/difficulty sleeping: not at all Due to disability, difficulty making decisions: No Do you think of yourself as: straight/heterosexual Gender Identity: male Exam Narrative Exam Narrative: Nurses notes and vital signs reviewed and patient is not hypoxic. General: The patient appears well and in no apparent distress. Patient is resting comfortably on cart. Skin: Warm, dry, no pallor noted. chronic leg wounds noted no signs of acute infection, does have some Band-Aids applied. multiple various stages of bruising noted bilateral forearms and abdomen. Patient has healing toribio noted to bilateral index fingers. Head: Normocephalic, atraumatic Neck: Supple, trachea mid-line, no tenderness, no lymphadenopathy Eye: Pupils are equal, round and reactive to light, EOMI Ears, Nose, Mouth, and Throat: external exam unremarkable. Mucous membranes moist. tongue is midline. Cardiovascular: Regular Rate and Rhythm Respiratory: unlabored breathing with activity, able to speak in full sentences at rest. Patient has expiratory wheeze upper lung field, slight rales lower lung field. Chest Wall: no tenderness Back: non-tender, no CVA tenderness Musculoskeletal: normal ROM, denies pain to palpation, patient has 2+ pitting edema bilateral lower legs. GI: Normal bowel sounds, no tenderness to palpation, no masses appreciated. No rebound, guarding, or rigidity noted. blood sugar monitoring device on patient's abdomen Neurological: A&O x4 Psychiatric: Cooperative Constitutional Vital Signs, click to edit/add: Last Vital Signs Temp 97.6 F 08/03/23 12:20 Pulse 85 08/03/23 15:07 Resp 18 08/03/23 15:07 BP 103/65 08/03/23 15:07 Pulse Ox 98 08/03/23 15:07 O2 Del Method Nasal Cannula 08/03/23 12:25 O2 Flow Rate 3 08/03/23 12:25 Course Vital Signs Vital signs: Vital Signs Temperature 97.6 F 08/03/23 12:20 Pulse Rate 85 08/03/23 12:20 Respiratory Rate 24 08/03/23 12:20 Blood Pressure 92/61 08/03/23 12:20 Pulse Oximetry 97 08/03/23 12:20 Oxygen Delivery Method Nasal Cannula 08/03/23 12:20 Oxygen Delivery Flow Rate 3 08/03/23 12:20 Temperature 97.6 F 08/03/23 12:20 Pulse Rate 85 08/03/23 15:07 Respiratory Rate 18 08/03/23 15:07 Blood Pressure 103/65 08/03/23 15:07 Pulse Oximetry 98 08/03/23 15:07 Oxygen Delivery Method Nasal Cannula 08/03/23 12:25 Oxygen Delivery Flow Rate 3 08/03/23 12:25 Medical Decision Making MDM Narrative Medical decision making narrative: patient presents with increased work of breathing shortness of breath with activity, patient noting fluid retention. Treated with DuoNeb and albuterol on arrival, 40 mg IV Lasix ordered pending labs and x ray. patient has frequent urge to urinate, unable to do so, bladder scan performed 400 ml retained... Pedro catheter placed since patient was given Lasix. Chest x-ray noted for cardiomegaly with congestion. Patient received DuoNeb and albuterol, continued wheezing present. Patient's potassium noted to be 6.1, nonhemolyzed. BNP is trended down from prior elevated areas. We will repeat his potassium as he has been previously low for several visits when reviewing records. Patient requesting Pedro catheter insertion as he feels he cannot urinate. Potassium was repeated still elevated at 6.0, ( K+ supplement BID to be held) will initiate treatment d50 and 10 insulin. pt recieved albuterol on arrival and discussed the need for admission. Dyspnea likelyy combination of chronic obstructive pulmonary disease and congestive heart failure, hyperkalemia, fluid retention. Patient's case to be discussed with Dr. Saldana by Dr. Ro Lab Data Labs: Lab Results 08/03/23 08/03/23 08/03/23 Range/Units 12:46 13:49 14:00 WBC 12.0 H (4.0-11.0) 10^3/uL RBC 3.44 L (4.70-6.10) 10^6/uL Hgb 9.9 L (14.0-18.0) g/dL Hct 31.1 L (42.0-54.0) % MCV 90.4 (80.0-94.0) fL MCH 28.8 (25.9-34.0) pg MCHC 31.8 (29.9-35.2) g/dL RDW 21.2 H (11.0-15.0) % Plt Count 178 (150-450) 10^3/uL MPV 10.6 (9.5-13.5) fL Neut % (Auto) 79.2 H (43.0-75.0) % Lymph % (Auto) 10.1 L (20.5-60.0) % [place] % (Auto) 7.4 (1.7-12.0) % Eos % (Auto) 2.3 (0.9-7.0) % Baso % (Auto) 0.3 (0.2-2.0) % Neut # (Auto) 9.5 H (1.4-6.5) 10^3/uL Lymph # (Auto) 1.2 (1.2-3.8) 10^3/uL [place] # (Auto) 0.9 H (0.3-0.8) 10^3/uL Eos # (Auto) 0.3 (0.0-0.7) 10^3/uL Baso # (Auto) 0.0 (0.0-0.1) 10^3/uL Abs Immat Gran (auto) 0.08 H (0.00-0.03) 10^3/uL Imm/Tot Granulo (auto) 0.7 H (0.0-0.5) % PT 21.9 H (9.0-11.6) sec INR 2.16 APTT 37.3 H (22.3-36.2) sec Sodium 130 L (136-145) mmol/L Potassium 6.1 H* 6.0 H (3.5-5.1) mmol/L Chloride 98 (98-107) mmol/L Carbon Dioxide 25.6 (21.0-32.0) mmol/L Anion Gap 12.5 BUN 32.0 H (7.0-18.0) mg/dL Creatinine 2.51 H (0.70-1.30) mg/dL Est GFR ( Amer) 31 L (>=60) Est GFR (Non-Af Amer) 26 L (>=60) BUN/Creatinine Ratio 12.7 Glucose 151 H (74-106) mg/dL Calcium 8.2 L (8.5-10.1) mg/dL Total Bilirubin 0.9 (0.2-1.0) mg/dL AST 34 (15-37) U/L ALT 29 (16-63) U/L Alkaline Phosphatase 149 H (46-116) U/L Troponin I High Sens 18.2 (4.0-76.1) pg/mL NT-Pro-B Natriuret Pep 3336.0 H* (<=900.0) pg/mL Total Protein 7.4 (6.4-8.2) g/dL Albumin 3.0 L (3.4-5.0) g/dL Globulin 4.4 g/dL Albumin/Globulin Ratio 0.7 Urine Color Lt. yellow (YELLOW) Urine Clarity Clear (CLEAR) Urine pH 6.0 (5.0-9.0) Ur Specific [place] 1.020 (1.005-1.025) Urine Protein 30 A (NEG/TRACE) mg/dL Urine Glucose (UA) Negative (NEGATIVE) mg/dL Urine Ketones Negative (NEGATIVE) mg/dL Urine Occult Blood Negative (NEGATIVE) Urine Nitrite Negative (NEGATIVE) Urine Bilirubin Negative (NEGATIVE) Urine Urobilinogen 0.2 (0.2-1.0) EU/dL Ur Leukocyte Esterase Negative (NEGATIVE) POC Glucose (74-106) mg/dL 08/03/23 Range/Units 15:02 WBC (4.0-11.0) 10^3/uL RBC (4.70-6.10) 10^6/uL Hgb (14.0-18.0) g/dL Hct (42.0-54.0) % MCV (80.0-94.0) fL MCH (25.9-34.0) pg MCHC (29.9-35.2) g/dL RDW (11.0-15.0) % Plt Count (150-450) 10^3/uL MPV (9.5-13.5) fL Neut % (Auto) (43.0-75.0) % Lymph % (Auto) (20.5-60.0) % [place] % (Auto) (1.7-12.0) % Eos % (Auto) (0.9-7.0) % Baso % (Auto) (0.2-2.0) % Neut # (Auto) (1.4-6.5) 10^3/uL Lymph # (Auto) (1.2-3.8) 10^3/uL [place] # (Auto) (0.3-0.8) 10^3/uL Eos # (Auto) (0.0-0.7) 10^3/uL Baso # (Auto) (0.0-0.1) 10^3/uL Abs Immat Gran (auto) (0.00-0.03) 10^3/uL Imm/Tot Granulo (auto) (0.0-0.5) % PT (9.0-11.6) sec INR APTT (22.3-36.2) sec Sodium (136-145) mmol/L Potassium (3.5-5.1) mmol/L Chloride (98-107) mmol/L Carbon Dioxide (21.0-32.0) mmol/L Anion Gap BUN (7.0-18.0) mg/dL Creatinine (0.70-1.30) mg/dL Est GFR ( Amer) (>=60) Est GFR (Non-Af Amer) (>=60) BUN/Creatinine Ratio Glucose (74-106) mg/dL Calcium (8.5-10.1) mg/dL Total Bilirubin (0.2-1.0) mg/dL AST (15-37) U/L ALT (16-63) U/L Alkaline Phosphatase (46-116) U/L Troponin I High Sens (4.0-76.1) pg/mL NT-Pro-B Natriuret Pep (<=900.0) pg/mL Total Protein (6.4-8.2) g/dL Albumin (3.4-5.0) g/dL Globulin g/dL Albumin/Globulin Ratio Urine Color (YELLOW) Urine Clarity (CLEAR) Urine pH (5.0-9.0) Ur Specific [place] (1.005-1.025) Urine Protein (NEG/TRACE) mg/dL Urine Glucose (UA) (NEGATIVE) mg/dL Urine Ketones (NEGATIVE) mg/dL Urine Occult Blood (NEGATIVE) Urine Nitrite (NEGATIVE) Urine Bilirubin (NEGATIVE) Urine Urobilinogen (0.2-1.0) EU/dL Ur Leukocyte Esterase (NEGATIVE) POC Glucose 210 H (74-106) mg/dL Imaging Data Chest x-ray: Radiologist's impression: Procedure: XR chest 1V EXAM: XR chest 1V HISTORY: SOB COMPARISON: 06/02/2023 TECHNIQUE: AP view of the chest. FINDINGS: The cardiomediastinal silhouette is enlarged. Stable left-sided cardiac pacemaker. Interstitial opacity. There is no pneumothorax. No pleural effusion is noted. The osseous structures are intact. IMPRESSION: Cardiomegaly with congestion. Electronically authenticated by: IMTIAZ HEWITT Date: 08/03/2023 13:17 ECG Data Interpretation: EKG interpretation: Emergency Department physician interpretation, normal sinus rhythm 78 bpm, paced rhythm Discharge Plan Discharge Chief Complaint: Shortness of Breath/Dyspnea Clinical Impression: Acute on chronic HFrEF (heart failure with reduced ejection fraction), Acute exacerbation of chronic obstructive pulmonary disease, Acute urinary retention, Fluid retention, Acute hyperkalemia Patient Disposition: Admitted As Inpatient Time of Disposition Decision: 14:11 Condition: Fair Documented by User: Wayne Ro MD 08/03/23 15:19 HPI - General Adult General Chief complaint: Shortness of Breath/Dyspnea Stated complaint: SHORTNESS OF BREATH Time Seen by Provider: 08/03/23 12:22 Related Data Home Medications Medication Instructions Recorded Confirmed aspirin 81 mg tablet,delayed 81 mg PO DAILY 05/24/23 06/20/23 release (Adult Low Dose Aspirin) atorvastatin 80 mg tablet 80 mg PO .QD 05/24/23 06/20/23 carvedilol 25 mg tablet 25 mg PO Q12H 05/24/23 06/20/23 dapagliflozin propanediol 10 mg 10 mg PO DAILY 05/24/23 06/20/23 tablet (Farxiga) digoxin 125 mcg (0.125 mg) tablet 0.125 mg PO QDAY 05/24/23 06/20/23 furosemide 80 mg tablet 80 mg PO Q12H 05/24/23 06/20/23 gabapentin 400 mg capsule 400 mg PO Q12H 05/24/23 06/20/23 hydrocodone 5 mg-acetaminophen 325 1 tab PO Q8H PRN pain, moderate 05/24/23 06/20/23 mg tablet isosorbide dinitrate 20 mg tablet 20 mg PO BIDWM 05/24/23 06/20/23 levothyroxine 50 mcg tablet 50 mcg PO .ACB 05/24/23 06/20/23 spironolactone 25 mg tablet 25 mg PO QAM 05/24/23 06/20/23 amitriptyline 25 mg tablet 25 mg PO .hs 06/02/23 06/20/23 cyanocobalamin (vitamin B-12) 1,000 mcg PO DAILY 06/02/23 06/20/23 1,000 mcg tablet,extended release hydralazine 50 mg tablet 50 mg PO Q8H 06/02/23 06/20/23 metolazone 2.5 mg tablet 2.5 mg PO DAILY 06/02/23 06/20/23 nitroglycerin 0.4 mg sublingual 0.4 mg sublingual Q5M PRN chest 06/02/23 06/20/23 tablet pain warfarin 2.5 mg tablet 2.5 mg PO DAILY 06/02/23 06/20/23 furosemide 20 mg tablet 20 mg PO BID 06/20/23 06/20/23 Previous Rx's Medication Instructions Recorded potassium chloride 10 mEq 20 meq PO TID #90 tabs 06/21/23 tablet,extended release(part/cryst) ([place]-Con M) Allergies Allergy/AdvReac Type Severity Reaction Status Date / Time No Known Drug Allergies Allergy Verified 07/31/23 13:47 [facility] Medical History (Updated 08/03/23 @ 14:11 by KAILEY Whitney) Surgical History (Updated 06/20/23 @ 13:44 by Susanna Gill) Family History Mother Family history of CHF (congestive heart failure) Brother Family history of cancer Social History Within the past year, how often did you have a drink containing alcohol: never Within the past year, how often did you have six or more drinks on one occasion: never Score interpretation: A score less than 4 is consistent with normal alcohol consumption. 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 Known occupational exposures/hazards: No Highest level of school completed/degree received: high school graduate Do you want help with school or training: No Are you now , , , , never or living with a partner: living with partner In a typical week, how many times do you talk on the telephone with family, friends, or neighbors: 3 or more times per week How often do you get together with friends or relatives: 3 or more times per week How often do you attend presyb[employer]ian or yazidism services: never Do you belong to any clubs or organizations such as pres[employer] groups unions, fraternal or athletic groups, or school groups: no Total score: 2 Score interpretation: A score of greater than or equal to 2 indicates the lowest level of social isolation. Little interest or pleasure in doing things: not at all Feeling down, depressed, or hopeless: not at all Feel stressed/tense/nervous/anxious/difficulty sleeping: not at all Due to disability, difficulty making decisions: No Do you think of yourself as: straight/heterosexual Gender Identity: male Exam Constitutional Vital Signs, click to edit/add: Last Vital Signs Temp 97.6 F 08/03/23 12:20 Pulse 85 08/03/23 15:07 Resp 18 08/03/23 15:07 BP 103/65 08/03/23 15:07 Pulse Ox 98 08/03/23 15:07 O2 Del Method Nasal Cannula 08/03/23 12:25 O2 Flow Rate 3 08/03/23 12:25 Course Vital Signs Vital signs: Vital Signs Temperature 97.6 F 08/03/23 12:20 Pulse Rate 85 08/03/23 12:20 Respiratory Rate 24 08/03/23 12:20 Blood Pressure 92/61 08/03/23 12:20 Pulse Oximetry 97 08/03/23 12:20 Oxygen Delivery Method Nasal Cannula 08/03/23 12:20 Oxygen Delivery Flow Rate 3 08/03/23 12:20 Temperature 97.6 F 08/03/23 12:20 Pulse Rate 85 08/03/23 15:07 Respiratory Rate 18 08/03/23 15:07 Blood Pressure 103/65 08/03/23 15:07 Pulse Oximetry 98 08/03/23 15:07 Oxygen Delivery Method Nasal Cannula 08/03/23 12:25 Oxygen Delivery Flow Rate 3 08/03/23 12:25 Medical Decision Making Lab Data Labs: Lab Results 08/03/23 08/03/23 08/03/23 Range/Units 12:46 13:49 14:00 WBC 12.0 H (4.0-11.0) 10^3/uL RBC 3.44 L (4.70-6.10) 10^6/uL Hgb 9.9 L (14.0-18.0) g/dL Hct 31.1 L (42.0-54.0) % MCV 90.4 (80.0-94.0) fL MCH 28.8 (25.9-34.0) pg MCHC 31.8 (29.9-35.2) g/dL RDW 21.2 H (11.0-15.0) % Plt Count 178 (150-450) 10^3/uL MPV 10.6 (9.5-13.5) fL Neut % (Auto) 79.2 H (43.0-75.0) % Lymph % (Auto) 10.1 L (20.5-60.0) % [place] % (Auto) 7.4 (1.7-12.0) % Eos % (Auto) 2.3 (0.9-7.0) % Baso % (Auto) 0.3 (0.2-2.0) % Neut # (Auto) 9.5 H (1.4-6.5) 10^3/uL Lymph # (Auto) 1.2 (1.2-3.8) 10^3/uL [place] # (Auto) 0.9 H (0.3-0.8) 10^3/uL Eos # (Auto) 0.3 (0.0-0.7) 10^3/uL Baso # (Auto) 0.0 (0.0-0.1) 10^3/uL Abs Immat Gran (auto) 0.08 H (0.00-0.03) 10^3/uL Imm/Tot Granulo (auto) 0.7 H (0.0-0.5) % PT 21.9 H (9.0-11.6) sec INR 2.16 APTT 37.3 H (22.3-36.2) sec Sodium 130 L (136-145) mmol/L Potassium 6.1 H* 6.0 H (3.5-5.1) mmol/L Chloride 98 (98-107) mmol/L Carbon Dioxide 25.6 (21.0-32.0) mmol/L Anion Gap 12.5 BUN 32.0 H (7.0-18.0) mg/dL Creatinine 2.51 H (0.70-1.30) mg/dL Est GFR ( Amer) 31 L (>=60) Est GFR (Non-Af Amer) 26 L (>=60) BUN/Creatinine Ratio 12.7 Glucose 151 H (74-106) mg/dL Calcium 8.2 L (8.5-10.1) mg/dL Total Bilirubin 0.9 (0.2-1.0) mg/dL AST 34 (15-37) U/L ALT 29 (16-63) U/L Alkaline Phosphatase 149 H (46-116) U/L Troponin I High Sens 18.2 (4.0-76.1) pg/mL NT-Pro-B Natriuret Pep 3336.0 H* (<=900.0) pg/mL Total Protein 7.4 (6.4-8.2) g/dL Albumin 3.0 L (3.4-5.0) g/dL Globulin 4.4 g/dL Albumin/Globulin Ratio 0.7 Urine Color Lt. yellow (YELLOW) Urine Clarity Clear (CLEAR) Urine pH 6.0 (5.0-9.0) Ur Specific [place] 1.020 (1.005-1.025) Urine Protein 30 A (NEG/TRACE) mg/dL Urine Glucose (UA) Negative (NEGATIVE) mg/dL Urine Ketones Negative (NEGATIVE) mg/dL Urine Occult Blood Negative (NEGATIVE) Urine Nitrite Negative (NEGATIVE) Urine Bilirubin Negative (NEGATIVE) Urine Urobilinogen 0.2 (0.2-1.0) EU/dL Ur Leukocyte Esterase Negative (NEGATIVE) POC Glucose (74-106) mg/dL 08/03/23 Range/Units 15:02 WBC (4.0-11.0) 10^3/uL RBC (4.70-6.10) 10^6/uL Hgb (14.0-18.0) g/dL Hct (42.0-54.0) % MCV (80.0-94.0) fL MCH (25.9-34.0) pg MCHC (29.9-35.2) g/dL RDW (11.0-15.0) % Plt Count (150-450) 10^3/uL MPV (9.5-13.5) fL Neut % (Auto) (43.0-75.0) % Lymph % (Auto) (20.5-60.0) % [place] % (Auto) (1.7-12.0) % Eos % (Auto) (0.9-7.0) % Baso % (Auto) (0.2-2.0) % Neut # (Auto) (1.4-6.5) 10^3/uL Lymph # (Auto) (1.2-3.8) 10^3/uL [place] # (Auto) (0.3-0.8) 10^3/uL Eos # (Auto) (0.0-0.7) 10^3/uL Baso # (Auto) (0.0-0.1) 10^3/uL Abs Immat Gran (auto) (0.00-0.03) 10^3/uL Imm/Tot Granulo (auto) (0.0-0.5) % PT (9.0-11.6) sec INR APTT (22.3-36.2) sec Sodium (136-145) mmol/L Potassium (3.5-5.1) mmol/L Chloride (98-107) mmol/L Carbon Dioxide (21.0-32.0) mmol/L Anion Gap BUN (7.0-18.0) mg/dL Creatinine (0.70-1.30) mg/dL Est GFR ( Amer) (>=60) Est GFR (Non-Af Amer) (>=60) BUN/Creatinine Ratio Glucose (74-106) mg/dL Calcium (8.5-10.1) mg/dL Total Bilirubin (0.2-1.0) mg/dL AST (15-37) U/L ALT (16-63) U/L Alkaline Phosphatase (46-116) U/L Troponin I High Sens (4.0-76.1) pg/mL NT-Pro-B Natriuret Pep (<=900.0) pg/mL Total Protein (6.4-8.2) g/dL Albumin (3.4-5.0) g/dL Globulin g/dL Albumin/Globulin Ratio Urine Color (YELLOW) Urine Clarity (CLEAR) Urine pH (5.0-9.0) Ur Specific [place] (1.005-1.025) Urine Protein (NEG/TRACE) mg/dL Urine Glucose (UA) (NEGATIVE) mg/dL Urine Ketones (NEGATIVE) mg/dL Urine Occult Blood (NEGATIVE) Urine Nitrite (NEGATIVE) Urine Bilirubin (NEGATIVE) Urine Urobilinogen (0.2-1.0) EU/dL Ur Leukocyte Esterase (NEGATIVE) POC Glucose 210 H (74-106) mg/dL Critical Care Time Critical Care Time Critical Care Time: Yes Total Critical Care Time: 35 Attestation: Due to the high probability of sudden and clinically significant deterioration in the patient's condition he/she required the highest level of my preparedness to intervene urgently I provided critical care time including documentation time, medication orders and management, reevaluation, vital sign assessment, ordering and reviewing of lab tests, ordering and reviewing of x-ray studies, and admission orders. Aggregate critical care time is (35) minutes including only time during which I was engaged in work directly related to his/her care and did not include time spent treating other patients simultaneously. Discharge Plan Discharge Chief Complaint: Shortness of Breath/Dyspnea Clinical Impression: Acute on chronic HFrEF (heart failure with reduced ejection fraction), Acute exacerbation of chronic obstructive pulmonary disease, Acute urinary retention, Fluid retention, Acute hyperkalemia Patient Disposition: Admitted As Inpatient Time of Disposition Decision: 14:11 Condition: Fair
[2023-08-03] MEDS: FUROSEMIDE 40 MG/4 ML VIAL IVP ×2 (12:52→21:25)
[2023-08-03] MEDS: ALBUTEROL SULFATE 2.5 MG/3 ML VIAL NEB IH (12:59)
[2023-08-03] MEDS: IPRATROPIUM/ALBUTEROL SULFATE 3 ML AMPUL.NEB IH ×2 (13:02→22:07)
[2023-08-03 13:13] LABS: Basophils Percent Auto 0.3 % (0.2-2.0); Eosinophils Absolute Auto 0.3 10^3/uL (0.0-0.7); Eosinophils Percent Auto 2.3 % (0.9-7.0); Hematocrit 31.1 % (42.0-54.0); Hemoglobin 9.9 g/dL (14.0-18.0); Immature Granulocytes Abs Auto 0.08 10^3/uL (0.00-0.03); Immature Granulocytes Pct Auto 0.7 % (0.0-0.5); Lymphocytes Absolute Auto 1.2 10^3/uL (1.2-3.8); Lymphocytes Percent Auto 10.1 % (20.5-60.0); Mean Corpuscular HGB Conc 31.8 g/dL (29.9-35.2); Mean Corpuscular Hemoglobin 28.8 pg (25.9-34.0); Mean Corpuscular Volume 90.4 fL (80.0-94.0); Mean Platelet Volume 10.6 fL (9.5-13.5); Monocytes Absolute Auto 0.9 10^3/uL (0.3-0.8); Monocytes Percent Auto 7.4 % (1.7-12.0); Neutrophils Absolute Auto 9.5 10^3/uL (1.4-6.5); Neutrophils Percent Auto 79.2 % (43.0-75.0); Platelet Count 178 10^3/uL (150-450); Red Blood Count 3.44 10^6/uL (4.70-6.10); Red Cell Distribution Width 21.2 % (11.0-15.0)
[2023-08-03 13:36] LABS: Alanine Aminotransferase 29 U/L (16-63); Albumin Globulin Ratio 0.7; Alkaline Phosphatase 149 U/L (46-116); Anion Gap 12.5; Aspartate Amino Transferase 34 U/L (15-37); BUN Creatinine Ratio 12.7; Bilirubin Total 0.9 mg/dL (0.2-1.0); Calcium 8.2 mg/dL (8.5-10.1); Carbon Dioxide 25.6 mmol/L (21.0-32.0); Chloride 98 mmol/L (98-107); Estimated GFR (African America 31 (>=60); Estimated GFR (Non-African Ame 26 (>=60); Globulin 4.4 g/dL; Glucose 151 mg/dL (74-106); INR 2.16; Partial Thromboplastin Time 37.3 sec (22.3-36.2); Prothrombin Time 21.9 sec (9.0-11.6); Sodium 130 mmol/L (136-145); Total Protein 7.4 g/dL (6.4-8.2); Troponin I High Sensitivity 18.2 pg/mL (4.0-76.1)
[2023-08-03 13:39] LABS: Potassium 6.1 mmol/L (3.5-5.1)
[2023-08-03 14:14] LABS: Bilirubin Urine NEGATIVE (NEGATIVE); Blood Urine NEGATIVE (NEGATIVE); Clarity Urine CLEAR (CLEAR); Color Urine LT. YELLOW (YELLOW); Glucose Urine UA NEGATIVE (NEGATIVE); Ketones Urine NEGATIVE (NEGATIVE); Leukocyte Esterase Urine NEGATIVE (NEGATIVE); Nitrite Urine NEGATIVE (NEGATIVE); Protein Urine 30 mg/dL (NEG/TRACE); Urobilinogen Urine 0.2 EU/dL (0.2-1.0)
[2023-08-03 14:17] LABS: Urine Microscopic Indicated NO
[2023-08-03] MEDS: INSULIN REGULAR 300 UNITS/3 ML 10 UNIT IV (14:23)
[2023-08-03] MEDS: DEXTROSE 50 %-WATER 25 GM/50 ML SYRINGE IV (14:23)
[2023-08-03 15:04] LABS: Glucometer 210 mg/dL (74-106)
[2023-08-03] MEDS: LACTATED RINGER'S SOLUTION 1,000 ML 50 ML IV (19:53)
[2023-08-03] MEDS: METHYLPREDNISOLONE SOD SUCC PF 125 MG/2 ML VIAL IVP (19:54)
[2023-08-03] MEDS: AZITHROMYCIN 500 MG in 0.9 % SODIUM CHLORIDE 250 ML 250 MG IV (21:11)
[2023-08-03] MEDS: L. ACIDOPHILUS/L.BULGARICUS 1 PACKET GRAN.PACK PO (21:25)
[2023-08-03] MEDS: POTASSIUM CHLORIDE 10 MEQ ER TABLET 20 MEQ PO (21:25)
[2023-08-03] MEDS: GABAPENTIN 400 MG CAPSULE PO (21:25)
[2023-08-03] MEDS: CARVEDILOL 25 MG TABLET PO (21:25)
[2023-08-03] MEDS: AMITRIPTYLINE HCL 25 MG TABLET PO (21:25)
[2023-08-03] MEDS: ISOSORBIDE DINITRATE 20 MG TABLET PO (21:25)
[2023-08-03] MEDS: CEFTRIAXONE 1,000 MG in 0.9 % SODIUM CHLORIDE 50 ML 100 MG IV (21:27)
[2023-08-03] MEDS: BENZONATATE 100 MG CAPSULE 200 MG PO (21:27)
[2023-08-04] VITALS (7 sets, daily range): BP systolic 99–136; BP diastolic 56–68; PULSE 66–88; RESP 18–20; TEMP 36.4–36.7; O2SAT 85–97
[2023-08-04] MEDS: METHYLPREDNISOLONE SOD SUCC PF 125 MG/2 ML VIAL IVP ×5 (01:05→23:49)
[2023-08-04] MEDS: IPRATROPIUM/ALBUTEROL SULFATE 3 ML AMPUL.NEB IH ×5 (05:07→23:50)
[2023-08-04 05:16] LABS: Eosinophils Percent Auto 0.3 % (0.9-7.0); Hematocrit 32.3 % (42.0-54.0); Hemoglobin 9.8 g/dL (14.0-18.0); Immature Granulocytes Abs Auto 0.06 10^3/uL (0.00-0.03); Immature Granulocytes Pct Auto 0.8 % (0.0-0.5); Lymphocytes Absolute Auto 0.6 10^3/uL (1.2-3.8); Lymphocytes Percent Auto 7.8 % (20.5-60.0); Mean Corpuscular HGB Conc 30.3 g/dL (29.9-35.2); Mean Corpuscular Hemoglobin 28.2 pg (25.9-34.0); Mean Corpuscular Volume 92.8 fL (80.0-94.0); Mean Platelet Volume 10.4 fL (9.5-13.5); Monocytes Absolute Auto 0.1 10^3/uL (0.3-0.8); Monocytes Percent Auto 0.7 % (1.7-12.0); Neutrophils Absolute Auto 6.8 10^3/uL (1.4-6.5); Neutrophils Percent Auto 90.4 % (43.0-75.0); Platelet Count 166 10^3/uL (150-450); Red Blood Count 3.48 10^6/uL (4.70-6.10); White Blood Count 7.5 10^3/uL (4.0-11.0)
[2023-08-04] MEDS: POTASSIUM CHLORIDE 10 MEQ ER TABLET 20 MEQ PO (05:41)
[2023-08-04] MEDS: BENZONATATE 100 MG CAPSULE 200 MG PO ×3 (05:41→21:55)
[2023-08-04] MEDS: LEVOTHYROXINE SODIUM 25 MCG TABLET 50 MCG PO (05:41)
[2023-08-04 05:56] LABS: Anion Gap 13.9; BUN Creatinine Ratio 12.6; Carbon Dioxide 24.1 mmol/L (21.0-32.0); Chloride 99 mmol/L (98-107); Estimated GFR (African America 26 (>=60); Estimated GFR (Non-African Ame 21 (>=60); Glucose 242 mg/dL (74-106); Sodium 131 mmol/L (136-145)
[2023-08-04] MEDS: CANAGLIFLOZIN 100 MG TABLET 300 MG PO (08:32)
[2023-08-04] MEDS: METOLAZONE 2.5 MG TABLET PO (08:32)
[2023-08-04] MEDS: ASPIRIN 81 MG TABLET.DR PO (08:32)
[2023-08-04] MEDS: L. ACIDOPHILUS/L.BULGARICUS 1 PACKET GRAN.PACK PO ×2 (08:32→21:54)
[2023-08-04] MEDS: ATORVASTATIN CALCIUM 40 MG TABLET 80 MG PO (08:33)
[2023-08-04] MEDS: FUROSEMIDE 20 MG TABLET PO ×2 (08:33→21:56)
[2023-08-04] MEDS: SPIRONOLACTONE 25 MG TABLET PO (08:33)
[2023-08-04] MEDS: GABAPENTIN 400 MG CAPSULE PO ×2 (08:35→21:56)
[2023-08-04] MEDS: CARVEDILOL 25 MG TABLET PO ×2 (08:35→21:55)
[2023-08-04] MEDS: FUROSEMIDE 40 MG/4 ML VIAL IVP (08:36)
[2023-08-04] MEDS: ISOSORBIDE DINITRATE 20 MG TABLET PO ×2 (08:37→17:52)
[2023-08-04 09:07] LABS: INR 2.11; Prothrombin Time 21.4 sec (9.0-11.6)
[2023-08-04 09:30] LABS: Digoxin 0.2 ng/mL (0.9-2.0)
--- NOTE | 2023-08-04 12:29 | P.HP_ITS ---
H&P: HPI History of Present Illness Chief complaint: SHORTNESS OF BREATH Hyperkal copd chf Narrative: Patient presented to the emergency room with increasing shortness of breath. In ER his BNP is elevated and significant hypoxia as he does not wear O2 at home. Patient is admitted for work-up and treatment of same, likely acute exacerbation of COPD secondary to acute bronchitis complicated by mild congestive heart failure Review of Systems ROS Constitutional Denies: fever or chills Eyes Denies: change in vision Cardiovascular Reports: chest pain, edema and swelling of feet/ankles; Denies: palpitations Respiratory Reports: shortness of breath, cough and wheezing Gastrointestinal Denies: abdominal pain, nausea or vomiting Musculoskeletal Reports: extremity swelling; Denies: back pain, neck pain or extremity pain Integumentary/Breast Reports: skin swelling, sores (right leg sores) and changes in skin color (chronic dependent edema); Denies: rash or itching Neurological Denies: headache Psychiatric Denies: anxiety or mood swings Endocrine Denies: excessive urination Hematologic/Lymphatic Reports: easy bruising Allergic/Immunologic Denies: hives PFSH [facility] Medical History (Updated 08/03/23 @ 14:11 by KAILEY Whitney) Surgical History (Updated 06/20/23 @ 13:44 by Susanna Gill) Family History Mother Family history of CHF (congestive heart failure) Brother Family history of cancer Social History Within the past year, how often did you have a drink containing alcohol: never Within the past year, how often did you have six or more drinks on one occasion: never Score interpretation: A score less than 4 is consistent with normal alcohol consumption. 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 Known occupational exposures/hazards: No Highest level of school completed/degree received: high school graduate Do you want help with school or training: No Are you now , , , , never or living with a partner: living with partner In a typical week, how many times do you talk on the telephone with family, friends, or neighbors: 3 or more times per week How often do you get together with friends or relatives: 3 or more times per week How often do you attend voodoo or mormonism services: never Do you belong to any clubs or organizations such as voodoo groups unions, fraternal or athletic groups, or school groups: no Total score: 2 Score interpretation: A score of greater than or equal to 2 indicates the lowest level of social isolation. Little interest or pleasure in doing things: not at all Feeling down, depressed, or hopeless: not at all Feel stressed/tense/nervous/anxious/difficulty sleeping: not at all Due to disability, difficulty making decisions: No Do you think of yourself as: straight/heterosexual Gender Identity: male Meds Home Medications and Allergies Home Medications Medication Instructions Recorded Confirmed Type aspirin 81 mg tablet,delayed 81 mg PO DAILY 05/24/23 06/20/23 History release (Adult Low Dose Aspirin) atorvastatin 80 mg tablet 80 mg PO DAILY 05/24/23 08/03/23 History carvedilol 25 mg tablet 25 mg PO Q12H 05/24/23 08/03/23 History dapagliflozin propanediol 10 mg 10 mg PO DAILY 05/24/23 08/03/23 History tablet (Farxiga) digoxin 125 mcg (0.125 mg) tablet 0.125 mg PO QDAY 05/24/23 08/03/23 History furosemide 80 mg tablet 80 mg PO Q12H 05/24/23 08/03/23 History gabapentin 400 mg capsule 400 mg PO Q12H 05/24/23 08/03/23 History hydrocodone 5 mg-acetaminophen 325 1 tab PO Q8H PRN pain, moderate 05/24/23 08/03/23 History mg tablet isosorbide dinitrate 20 mg tablet 20 mg PO BIDWM 05/24/23 08/03/23 History levothyroxine 50 mcg tablet 50 mcg PO .ACB 05/24/23 08/03/23 History spironolactone 25 mg tablet 25 mg PO QAM 05/24/23 08/03/23 History amitriptyline 25 mg tablet 25 mg PO .hs 06/02/23 08/03/23 History cyanocobalamin (vitamin B-12) 1,000 mcg PO DAILY 06/02/23 08/03/23 History 1,000 mcg tablet,extended release hydralazine 50 mg tablet 50 mg PO Q8H 06/02/23 06/20/23 History metolazone 2.5 mg tablet 2.5 mg PO DAILY 06/02/23 08/03/23 History nitroglycerin 0.4 mg sublingual 0.4 mg sublingual Q5M PRN chest 06/02/23 06/20/23 History tablet pain warfarin 2.5 mg tablet 2.5 mg PO DAILY 06/02/23 08/03/23 History furosemide 20 mg tablet 20 mg PO BID 06/20/23 08/03/23 History potassium chloride 10 mEq 20 meq PO TID #90 tabs 06/21/23 08/03/23 Rx tablet,extended release(part/cryst) (Klor-Con M) Allergies Allergy/AdvReac Type Severity Reaction Status Date / Time No Known Drug Allergies Allergy Verified 07/31/23 13:47 Exam Constitutional Vital Signs, click to edit/add: Last Vital Signs Temp 97.9 F 08/04/23 04:00 Pulse 85 08/04/23 10:32 Resp 18 08/04/23 05:07 BP 136/68 08/04/23 04:00 Pulse Ox 93 L 08/04/23 10:32 O2 Del Method Room Air 08/04/23 10:32 O2 Flow Rate 3 08/04/23 05:07 Documenting provider has reviewed patient's vital signs: yes Common normals: apparent distress Chest Common normals: inspection of chest normal Respiratory Common normals: abnormal respiratory effort Auscultation: rhonchi, wheezes and diminished lung sounds Cardio Common normals: regular rate, regular rhythm and no murmurs GI Common normals: Normal to inspection, nondistended, normoactive bowel sounds present Extremity Common normals: abnormal to inspection (Patient has some edema but he states his edema currently is good for him) Results Labs Labs: Short CBC 08/03/23 08/04/23 Range/Units 12:46 04:49 WBC 12.0 H 7.5 (4.0-11.0) 10^3/uL Hgb 9.9 L 9.8 L (14.0-18.0) g/dL Hct 31.1 L 32.3 L (42.0-54.0) % Plt Count 178 166 (150-450) 10^3/uL BMP 08/03/23 08/03/23 08/04/23 12:46 13:49 04:49 Sodium 130 L 131 L Potassium 6.1 H* 6.0 H 6.0 H Chloride 98 99 Carbon Dioxide 25.6 24.1 BUN 32.0 H 37.0 H Creatinine 2.51 H 2.94 H Glucose 151 H 242 H Calcium 8.2 L 8.0 L Liver Function 08/03/23 Range/Units 12:46 Total Bilirubin 0.9 (0.2-1.0) mg/dL AST 34 (15-37) U/L ALT 29 (16-63) U/L Alkaline Phosphatase 149 H (46-116) U/L Albumin 3.0 L (3.4-5.0) g/dL Urine 08/03/23 Range/Units 14:00 Urine Color Lt. yellow (YELLOW) Urine Clarity Clear (CLEAR) Urine pH 6.0 (5.0-9.0) Ur Specific [place] 1.020 (1.005-1.025) Urine Protein 30 A (NEG/TRACE) mg/dL Urine Glucose (UA) Negative (NEGATIVE) mg/dL Assessment and Plan Assessment and Plan (1) Hemoptysis: (2) Acute exacerbation of chronic obstructive pulmonary disease: (3) Acute on chronic HFrEF (heart failure with reduced ejection fraction): (4) CAD (coronary artery disease): (5) COPD (chronic obstructive pulmonary disease): Plan Dyspnea, hypoxia secondary to acute exacerbation of COPD-steroids, antibiotics, aerosol treatments, will increase the frequency of aerosol treatments Acute on chronic heart failure with reduced ejection fraction- edema not progressed and his weight not elevated, suspect his shortness of breath is more related to his COPD -hold off on diuretics for today, kidney test elevated, check on digoxin level Chronic kidney disease stage II-deteriorated today-hold off on diuretics, hyperkalemia but slightly improved, may need adjustment in his home diuretics, will maintain Farxiga for now Coronary artery disease by history-patient denies symptoms of chest pain Hypothyroidism-maintain current medication
[2023-08-04] MEDS: LACTATED RINGER'S SOLUTION 1,000 ML 50 ML IV (17:53)
[2023-08-04] MEDS: WARFARIN SODIUM 2.5 MG TABLET PO (17:53)
[2023-08-04] MEDS: AZITHROMYCIN 500 MG in 0.9 % SODIUM CHLORIDE 250 ML 250 MG IV (20:58)
[2023-08-04] MEDS: AMITRIPTYLINE HCL 25 MG TABLET PO (21:54)
[2023-08-04] MEDS: CEFTRIAXONE 1,000 MG in 0.9 % SODIUM CHLORIDE 50 ML 100 MG IV (21:56)
[2023-08-05] VITALS (9 sets, daily range): BP systolic 99–125; BP diastolic 69–71; PULSE 81–87; RESP 16–20; TEMP 36.5–36.7; O2SAT 93–99
[2023-08-05] MEDS: IPRATROPIUM/ALBUTEROL SULFATE 3 ML AMPUL.NEB IH ×5 (04:46→22:53)
[2023-08-05 04:53] LABS: Hemoglobin 9.6 g/dL (14.0-18.0); Immature Granulocytes Abs Auto 0.12 10^3/uL (0.00-0.03); Lymphocytes Absolute Auto 0.7 10^3/uL (1.2-3.8); Lymphocytes Percent Auto 5.6 % (20.5-60.0); Mean Corpuscular Hemoglobin 28.1 pg (25.9-34.0); Mean Corpuscular Volume 90.6 fL (80.0-94.0); Monocytes Absolute Auto 0.3 10^3/uL (0.3-0.8); Monocytes Percent Auto 2.8 % (1.7-12.0); Neutrophils Percent Auto 90.6 % (43.0-75.0); Platelet Count 173 10^3/uL (150-450); Red Blood Count 3.42 10^6/uL (4.70-6.10); White Blood Count 12.1 10^3/uL (4.0-11.0)
[2023-08-05 05:03] LABS: INR 2.17
[2023-08-05 05:16] LABS: Anion Gap 13.5; BUN Creatinine Ratio 17.5; Calcium 8.5 mg/dL (8.5-10.1); Carbon Dioxide 26.1 mmol/L (21.0-32.0); Chloride 97 mmol/L (98-107); Estimated GFR (African America 27 (>=60); Estimated GFR (Non-African Ame 23 (>=60); Glucose 444 mg/dL (74-106); Potassium 4.6 mmol/L (3.5-5.1); Sodium 132 mmol/L (136-145)
[2023-08-05] MEDS: LEVOTHYROXINE SODIUM 25 MCG TABLET 50 MCG PO (05:46)
[2023-08-05] MEDS: BENZONATATE 100 MG CAPSULE 200 MG PO ×3 (05:46→20:29)
[2023-08-05] MEDS: METHYLPREDNISOLONE SOD SUCC PF 125 MG/2 ML VIAL IVP (05:46)
[2023-08-05] MEDS: ISOSORBIDE DINITRATE 20 MG TABLET PO ×2 (08:20→17:35)
[2023-08-05] MEDS: ASPIRIN 81 MG TABLET.DR PO (08:20)
[2023-08-05] MEDS: CANAGLIFLOZIN 100 MG TABLET 300 MG PO (08:20)
[2023-08-05] MEDS: GABAPENTIN 400 MG CAPSULE PO ×2 (08:20→20:27)
[2023-08-05] MEDS: L. ACIDOPHILUS/L.BULGARICUS 1 PACKET GRAN.PACK PO ×2 (08:20→20:27)
[2023-08-05] MEDS: ATORVASTATIN CALCIUM 40 MG TABLET 80 MG PO (08:20)
[2023-08-05] MEDS: FUROSEMIDE 20 MG TABLET PO (08:20)
[2023-08-05] MEDS: CARVEDILOL 25 MG TABLET PO ×2 (08:20→20:27)
[2023-08-05] MEDS: AZITHROMYCIN 250 MG TABLET 500 MG PO (10:24)
[2023-08-05] MEDS: FUROSEMIDE 40 MG/4 ML VIAL 80 MG IVP ×2 (10:25→20:27)
[2023-08-05] MEDS: INSULIN DETEMIR 300 UNIT/3 ML INSULN.PEN 45 UNIT SUBQ (10:25)
[2023-08-05] MEDS: DIGOXIN 125 MCG TABLET PO (10:25)
--- NOTE | 2023-08-05 10:32 | RESP.RT ---
placed on room air trial
--- NOTE | 2023-08-05 11:23 | PM.IMPN1 ---
Progress Note: A&P Assessment and Plan (1) Acute exacerbation of chronic obstructive pulmonary disease: Assessment and Plan: Improving but still wheezing and experiencing SOB. C/w Solumedrol and duonebs. Wean off O2 as tolerated. Monitor (2) Acute on chronic HFrEF (heart failure with reduced ejection fraction): Assessment and Plan: P/w volume overload. Started on IV lasix 80 q12 this am. Recent ECHO - severely reduced EF. Monitor I/O, daily wieghts. Monitor Cr closely while on Lasix. (3) Acute respiratory failure with hypoxia: Assessment and Plan: Pulse Ox 88 on admission with increased work of breathing. Doing better and now on RA. Sec to acute on chronic systolic HF and COPD exacerbation (4) Acute hyperkalemia: Assessment and Plan: Resolved. Monitor. (5) CKD (chronic kidney disease) stage 4, GFR 15-29 ml/min: Assessment and Plan: Cr more or less at baseline. Monitor closely while diuresing. (6) CAD (coronary artery disease): Assessment and Plan: No evidence of active ischemia. Denies CP. Monitor. C/w ASA, Coreg, statin (7) Paroxysmal atrial fibrillation: Assessment and Plan: On Comadin for AC. In NSR currently. (8) Type 2 diabetes mellitus with hyperglycemia: Assessment and Plan: Poorly controlled and currently hyperglycemic due to systemic steroids. Closely monitor. on basal/bolus insulin. (9) Hypothyroid: Assessment and Plan: C/w synthyroid (10) HLD (hyperlipidemia): Assessment and Plan: c/w statin Internal Medicine - PN: Subj Subjective Interval history: See and examined. Patient still reports SOB at rest, cough and wheezing along with LE edema. He feels somewhat better compared to yesterday. No events overnight. Exam Constitutional Vital Signs, click to edit/add: Last Vital Signs Temp 98.1 F 08/05/23 04:47 Pulse 85 08/05/23 10:30 Resp 16 08/05/23 10:30 BP 125/71 08/05/23 04:47 Pulse Ox 98 08/05/23 10:30 O2 Del Method Room Air 08/05/23 10:30 O2 Flow Rate 2 08/05/23 10:30 Documenting provider has reviewed patient's vital signs: yes Common normals: no apparent distress and oriented x3 General appearance: cooperative HENMT Common normals: normocephalic and head/scalp atraumatic Head and scalp: normocephalic and atraumatic Eye Common normals: conjunctivae normal and no scleral icterus Conjunctiva: conjunctiva(e) normal Respiratory Common normals: normal respiratory effort Auscultation: wheezes and diminished lung sounds Cardio Common normals: regular rate, S1 normal heart sound and S2 normal heart sound Rate: regular rate Heart sounds: S1 normal and S2 normal GI Common normals: Normal to inspection, nondistended, normoactive bowel sounds present, soft to palpation, non-tender and no hepatosplenomegaly Palpation: soft and no hepatosplenomegaly Extremity General: edema (b/l +2) Neuro Common normals: oriented x3, moves all extremities and no focal motor deficits Psych Common normals: mental status grossly normal, denies hallucinations, denies homicidal ideation and denies suicidal ideation Internal Medicine - PN: Obj Da Labs Labs: Laboratory Results - last 24 hr 08/05/23 04:26 WBC 12.1 H RBC 3.42 L Hgb 9.6 L Hct 31.0 L MCV 90.6 MCH 28.1 MCHC 31.0 RDW 21.0 H Plt Count 173 MPV 11.0 Neut % (Auto) 90.6 H Lymph % (Auto) 5.6 L [place] % (Auto) 2.8 Eos % (Auto) 0.0 L Baso % (Auto) 0.0 L Neut # (Auto) 11.0 H Lymph # (Auto) 0.7 L [place] # (Auto) 0.3 Eos # (Auto) 0.0 Baso # (Auto) 0.0 Abs Immat Gran (auto) 0.12 H Imm/Tot Granulo (auto) 1.0 H PT 22.0 H INR 2.17 Sodium 132 L Potassium 4.6 Chloride 97 L Carbon Dioxide 26.1 Anion Gap 13.5 BUN 49.0 H Creatinine 2.80 H Est GFR ( Amer) 27 L Est GFR (Non-Af Amer) 23 L BUN/Creatinine Ratio 17.5 Glucose 444 H Calcium 8.5 NT-Pro-B Natriuret Pep 4686.0 H* Urinary Catheter Management Urinary Catheter Management Urethral: Cath placed during this visit: yes Urethral indwelling: Yes Reason for continuing: measure accurate output Insertion date: 08/03/23 Insertion time: 14:09
[2023-08-05] MEDS: INSULIN ASPART 300 UNIT/3 ML PEN SUBQ ×3 (12:30→21:36)
[2023-08-05] MEDS: METHYLPREDNISOLONE SOD SUCC PF 40 MG/ML VIAL IVP ×2 (13:55→22:38)
--- NOTE | 2023-08-05 14:35 | RESP.RT ---
Placed on room air
[2023-08-05] MEDS: INSULIN ASPART 300 UNIT/3 ML PEN 20 UNIT SUBQ (17:00)
[2023-08-05] MEDS: WARFARIN SODIUM 2.5 MG TABLET PO (17:36)
--- NOTE | 2023-08-05 19:50 | RESP.RT ---
Placed pt on . Pt wears 3L at night at home.
[2023-08-05 20:11] LABS: Glucometer 467 mg/dL (74-106)
[2023-08-05] MEDS: INSULIN DETEMIR 300 UNIT/3 ML INSULN.PEN 60 UNIT SUBQ (21:35)
[2023-08-06] VITALS (19 sets, daily range): BP systolic 107–127; BP diastolic 63–85; PULSE 83–97; RESP 16–24; TEMP 36.4–36.8; O2SAT 92–99
[2023-08-06] MEDS: IPRATROPIUM/ALBUTEROL SULFATE 3 ML AMPUL.NEB IH ×6 (03:32→23:04)
[2023-08-06 05:01] LABS: Hematocrit 31.1 % (42.0-54.0); Immature Granulocytes Abs Auto 0.12 10^3/uL (0.00-0.03); Immature Granulocytes Pct Auto 0.9 % (0.0-0.5); Lymphocytes Absolute Auto 0.6 10^3/uL (1.2-3.8); Lymphocytes Percent Auto 4.5 % (20.5-60.0); Mean Corpuscular HGB Conc 32.2 g/dL (29.9-35.2); Mean Corpuscular Hemoglobin 28.7 pg (25.9-34.0); Mean Corpuscular Volume 89.1 fL (80.0-94.0); Mean Platelet Volume 10.3 fL (9.5-13.5); Monocytes Absolute Auto 0.4 10^3/uL (0.3-0.8); Monocytes Percent Auto 2.9 % (1.7-12.0); Neutrophils Absolute Auto 12.2 10^3/uL (1.4-6.5); Neutrophils Percent Auto 91.7 % (43.0-75.0); Platelet Count 179 10^3/uL (150-450); Red Blood Count 3.49 10^6/uL (4.70-6.10); Red Cell Distribution Width 20.6 % (11.0-15.0); White Blood Count 13.3 10^3/uL (4.0-11.0)
[2023-08-06 05:07] LABS: Anion Gap 10.8; Calcium 8.6 mg/dL (8.5-10.1); Carbon Dioxide 31.3 mmol/L (21.0-32.0); Chloride 97 mmol/L (98-107); Estimated GFR (African America 34 (>=60); Estimated GFR (Non-African Ame 28 (>=60); Glucose 196 mg/dL (74-106); Potassium 3.1 mmol/L (3.5-5.1); Sodium 136 mmol/L (136-145)
[2023-08-06 05:12] LABS: INR 2.08; Prothrombin Time 21.2 sec (9.0-11.6)
[2023-08-06] MEDS: BENZONATATE 100 MG CAPSULE 200 MG PO ×3 (05:44→20:00)
[2023-08-06] MEDS: LEVOTHYROXINE SODIUM 25 MCG TABLET 50 MCG PO (05:44)
[2023-08-06] MEDS: METHYLPREDNISOLONE SOD SUCC PF 40 MG/ML VIAL IVP ×3 (05:44→22:19)
--- NOTE | 2023-08-06 07:02 | RESP.RT ---
placed on room air
[2023-08-06] MEDS: INSULIN ASPART 300 UNIT/3 ML PEN SUBQ ×4 (07:40→22:22)
[2023-08-06] MEDS: INSULIN DETEMIR 300 UNIT/3 ML INSULN.PEN 45 UNIT SUBQ (08:30)
[2023-08-06] MEDS: GABAPENTIN 400 MG CAPSULE PO ×2 (08:34→20:02)
[2023-08-06] MEDS: DIGOXIN 125 MCG TABLET PO (08:34)
[2023-08-06] MEDS: L. ACIDOPHILUS/L.BULGARICUS 1 PACKET GRAN.PACK PO ×2 (08:34→20:02)
[2023-08-06] MEDS: CARVEDILOL 25 MG TABLET PO ×2 (08:34→20:00)
[2023-08-06] MEDS: CANAGLIFLOZIN 100 MG TABLET 300 MG PO (08:45)
[2023-08-06] MEDS: ISOSORBIDE DINITRATE 20 MG TABLET PO ×2 (08:46→18:46)
[2023-08-06] MEDS: AZITHROMYCIN 250 MG TABLET 500 MG PO (08:46)
[2023-08-06] MEDS: FUROSEMIDE 40 MG/4 ML VIAL 80 MG IVP ×2 (08:47→20:01)
[2023-08-06] MEDS: POTASSIUM CHLORIDE 40 MEQ in 0.9 % SODIUM CHLORIDE 250 ML 67.5 MEQ IV (08:52)
--- NOTE | 2023-08-06 09:56 | SWNOTE1 ---
Pt is current with [facility].
--- NOTE | 2023-08-06 10:29 | CM.NOTE ---
Rounds made with Dr. Moore, continue IV diuretics. No discharge today. Pt up ad jaci in room.
[2023-08-06] MEDS: POTASSIUM CHLORIDE 10 MEQ ER TABLET 40 MEQ PO (10:36)
--- NOTE | 2023-08-06 10:47 | PM.IMPN1 ---
Progress Note: A&P Assessment and Plan (1) Acute exacerbation of chronic obstructive pulmonary disease: Assessment and Plan: Improving with minimal wheezing now. Still dyspneic on exertion. C/w Solumedrol and duonebs. Wean off O2 as tolerated. Monitor (2) Acute on chronic HFrEF (heart failure with reduced ejection fraction): Assessment and Plan: P/w volume overload. Started on IV lasix 80 q12 - good UO on it. C/w same Recent ECHO - severely reduced EF. Monitor I/O, daily weights. Monitor Cr closely while on Lasix. (3) Acute respiratory failure with hypoxia: Assessment and Plan: on RA now. (4) Cough with hemoptysis: Assessment and Plan: Bright red blood with cough and sputum Persistent and ongoing for one week. Previously his INR was elevated but now at goal. CT chest - no sig abnormality noted. Pulmonary medicine consulted for their recommendation (5) Acute hyperkalemia: Assessment and Plan: Resolved. Monitor. (6) CKD (chronic kidney disease) stage 4, GFR 15-29 ml/min: Assessment and Plan: Cr more or less at baseline. Monitor closely while diuresing. (7) CAD (coronary artery disease): Assessment and Plan: No evidence of active ischemia. Denies CP. Monitor. C/w ASA, Coreg, statin (8) Paroxysmal atrial fibrillation: Assessment and Plan: On Comadin for AC. In NSR currently. Previously INR was elevated but now at goal (9) Type 2 diabetes mellitus with hyperglycemia: Assessment and Plan: Hyperglycemia improved. FSBS were running above 600 all day yesterday. On Lantus 45 qam, 60 units qhs. Outpatient dose is 45 q12. (10) Hypothyroid: Assessment and Plan: C/w synthyroid (11) HLD (hyperlipidemia): Assessment and Plan: c/w statin Internal Medicine - PN: Subj Subjective Interval history: Seen and examined. Good UO on lasix. On RA now. Patient reports he is still dyspneic on exertion. Continues to have hemoptysis.. No sig events otherwise. Exam Constitutional Vital Signs, click to edit/add: Last Vital Signs Temp 98.3 F 08/06/23 05:49 Pulse 91 H 08/06/23 08:46 Resp 18 08/06/23 08:41 BP 122/85 08/06/23 08:47 Pulse Ox 98 08/06/23 10:28 O2 Del Method Room Air 08/06/23 10:28 O2 Flow Rate 3 08/06/23 06:55 Documenting provider has reviewed patient's vital signs: yes Common normals: no apparent distress and oriented x3 General appearance: cooperative HENMT Common normals: normocephalic and head/scalp atraumatic Head and scalp: normocephalic and atraumatic Eye Common normals: conjunctivae normal and no scleral icterus Conjunctiva: conjunctiva(e) normal Respiratory Common normals: normal respiratory effort and no use of accessory muscles Effort & inspection: able to speak in complete sentences Auscultation: rales Cardio Common normals: regular rate, S1 normal heart sound and S2 normal heart sound Rate: regular rate Heart sounds: S1 normal and S2 normal GI Common normals: Normal to inspection, nondistended, normoactive bowel sounds present, soft to palpation, non-tender and no hepatosplenomegaly Palpation: soft and no hepatosplenomegaly Extremity General: edema (b/l +2) Neuro Common normals: oriented x3, moves all extremities and no focal motor deficits Psych Common normals: mental status grossly normal, denies hallucinations, denies homicidal ideation and denies suicidal ideation Internal Medicine - PN: Obj Da Labs Labs: Laboratory Results - last 24 hr 08/05/23 08/06/23 20:09 04:44 WBC 13.3 H RBC 3.49 L Hgb 10.0 L Hct 31.1 L MCV 89.1 MCH 28.7 MCHC 32.2 RDW 20.6 H Plt Count 179 MPV 10.3 Neut % (Auto) 91.7 H Lymph % (Auto) 4.5 L [place] % (Auto) 2.9 Eos % (Auto) 0.0 L Baso % (Auto) 0.0 L Neut # (Auto) 12.2 H Lymph # (Auto) 0.6 L [place] # (Auto) 0.4 Eos # (Auto) 0.0 Baso # (Auto) 0.0 Abs Immat Gran (auto) 0.12 H Imm/Tot Granulo (auto) 0.9 H PT 21.2 H INR 2.08 Sodium 136 Potassium 3.1 L Chloride 97 L Carbon Dioxide 31.3 Anion Gap 10.8 BUN 54.0 H Creatinine 2.35 H Est GFR ( Amer) 34 L Est GFR (Non-Af Amer) 28 L BUN/Creatinine Ratio 23.0 Glucose 196 H Calcium 8.6 POC Glucose 467 H Urinary Catheter Management Urinary Catheter Management Urethral: Cath placed during this visit: yes Urethral indwelling: Yes Reason for continuing: measure accurate output Insertion date: 08/03/23 Insertion time: 14:09
--- NOTE | 2023-08-06 11:36 | SWNOTE1 ---
SW met with pt to discuss dc needs. Pt lives at home with his significant other. He does have home oxygen and a home cpap or bipap. He usually only wears the oxygen at night through his pap machine. When he is feeling short of breath he wears the oxygen throughout the day. Pt has a walker at home that he uses. He stated his significant other takes good care of him at home. He is current with [facility]. He was having PT/OT come in, but they ended services and it is just nursing. Pt stated plan is for possible discharge tomorrow. Pt plans on returning home with home health. SW to follow as needed.
--- NOTE | 2023-08-06 11:39 | CM.NOTE ---
Important Message From Medicare discussed with pt, pt verbalizes understanding and signs paper. Original given to pt and copy placed in pt's chart.
--- NOTE | 2023-08-06 12:21 | PM.PLCN ---
History of Present Illness History of Present Illness Consult date: 08/06/23 Requesting physician: Shaikh Teresa Reason for consult: other (Hemoptysis) Chief complaint: SHORTNESS OF BREATH Hyperkal copd chf Narrative: 68yo male presented to [facility] with dyspnea on 08/04/2023, felt to be a combination of AECHF and AECOPD, and was admitted. He has had hemoptysis off & on for the past week. It initially occurred on 07/31/2023 which coincided with an INR of 8 (on chronic warfarin for afib). He had a CT that date which did not show any gross masses or endobronchial lesions. The amount and frequency of blood has decreased, but still persists. He had a specimen cup with a mild amount of dark red blood present. He denied any epistaxis or hematemesis. He admitted to hematuria several days ago. Patient was last seen by me at an initial visit on 01/26/2020 for preoperative pulmonary evaluation. He was lost to F/U and this is the first time I have seen him since that time. Review of Systems ROS Narrative Hemoptysis as described above. Dyspnea, coughing. Edema with swollen extremities - skin tears & weeping. [facility] Medical History (Updated 08/06/23 @ 12:34 by Fred Connelly DO) Surgical History (Updated 06/20/23 @ 13:44 by Susanna Gill) Family History Mother Family history of CHF (congestive heart failure) Brother Family history of cancer Social History Within the past year, how often did you have a drink containing alcohol: never Within the past year, how often did you have six or more drinks on one occasion: never Score interpretation: A score less than 4 is consistent with normal alcohol consumption. 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 Known occupational exposures/hazards: No Highest level of school completed/degree received: high school graduate Do you want help with school or training: No Are you now , , , , never or living with a partner: living with partner In a typical week, how many times do you talk on the telephone with family, friends, or neighbors: 3 or more times per week How often do you get together with friends or relatives: 3 or more times per week How often do you attend faith or rastafarian services: never Do you belong to any clubs or organizations such as faith groups unions, fraternal or athletic groups, or school groups: no Total score: 2 Score interpretation: A score of greater than or equal to 2 indicates the lowest level of social isolation. Little interest or pleasure in doing things: not at all Feeling down, depressed, or hopeless: not at all Feel stressed/tense/nervous/anxious/difficulty sleeping: not at all Due to disability, difficulty making decisions: No Do you think of yourself as: straight/heterosexual Gender Identity: male Meds Home Medications and Allergies Home Medications Medication Instructions Recorded Confirmed Type aspirin 81 mg tablet,delayed 81 mg PO DAILY 05/24/23 06/20/23 History release (Adult Low Dose Aspirin) atorvastatin 80 mg tablet 80 mg PO DAILY 05/24/23 08/03/23 History carvedilol 25 mg tablet 25 mg PO Q12H 05/24/23 08/03/23 History dapagliflozin propanediol 10 mg 10 mg PO DAILY 05/24/23 08/03/23 History tablet (Farxiga) digoxin 125 mcg (0.125 mg) tablet 0.125 mg PO QDAY 05/24/23 08/03/23 History furosemide 80 mg tablet 80 mg PO Q12H 05/24/23 08/03/23 History gabapentin 400 mg capsule 400 mg PO Q12H 05/24/23 08/03/23 History hydrocodone 5 mg-acetaminophen 325 1 tab PO Q8H PRN pain, moderate 05/24/23 08/03/23 History mg tablet isosorbide dinitrate 20 mg tablet 20 mg PO BIDWM 05/24/23 08/03/23 History levothyroxine 50 mcg tablet 50 mcg PO .ACB 05/24/23 08/03/23 History spironolactone 25 mg tablet 25 mg PO QAM 05/24/23 08/03/23 History amitriptyline 25 mg tablet 25 mg PO .hs 06/02/23 08/03/23 History cyanocobalamin (vitamin B-12) 1,000 mcg PO DAILY 06/02/23 08/03/23 History 1,000 mcg tablet,extended release hydralazine 50 mg tablet 50 mg PO Q8H 06/02/23 06/20/23 History metolazone 2.5 mg tablet 2.5 mg PO DAILY 06/02/23 08/03/23 History nitroglycerin 0.4 mg sublingual 0.4 mg sublingual Q5M PRN chest 06/02/23 06/20/23 History tablet pain warfarin 2.5 mg tablet 2.5 mg PO DAILY 06/02/23 08/03/23 History furosemide 20 mg tablet 20 mg PO BID 06/20/23 08/03/23 History potassium chloride 10 mEq 20 meq PO TID #90 tabs 06/21/23 08/03/23 Rx tablet,extended release(part/cryst) (Klor-Con M) Allergies Allergy/AdvReac Type Severity Reaction Status Date / Time No Known Drug Allergies Allergy Verified 07/31/23 13:47 Exam Constitutional Vital Signs, click to edit/add: Last Vital Signs Temp 98.3 F 08/06/23 05:49 Pulse 91 H 08/06/23 08:46 Resp 18 08/06/23 08:41 BP 122/85 08/06/23 08:47 Pulse Ox 98 08/06/23 10:28 O2 Del Method Room Air 08/06/23 10:28 O2 Flow Rate 3 08/06/23 06:55 Documenting provider has reviewed patient's vital signs: yes General appearance: appears older than stated age HENMT Other: Not wearing O2. No epistaxis. Chest Common normals: palpation of chest normal Chest: symmetrical chest wall rise Respiratory Auscultation: rales bilateral throughout Percussion: dullness Lower: bilateral (R > L) Cardio Palpation: normal PMI Rate: regular rate GI Inspection: central obesity Extremity General: edema Other: Skin tears, with some weeping of the right anterior leg Neuro Sensorium/orientation: awake and alert Psych Common normals: mental status grossly normal Attitude: calm Speech: normal speech Results Laboratory Findings ABG, PT/INR, D-dimer: PT/INR, D-dimer PT 21.2 sec (9.0-11.6) H 08/06/23 04:44 INR 2.08 08/06/23 04:44 Abnormal lab findings: Abnormal Labs 08/03/23 08/03/2308/03/23 12:46 13:49 14:00 WBC 12.0 H RBC 3.44 L Hgb 9.9 L Hct 31.1 L RDW 21.2 H Neut % (Auto) 79.2 H Lymph % (Auto) 10.1 L [place] % (Auto) Eos % (Auto) Baso % (Auto) Neut # (Auto) 9.5 H Lymph # (Auto) [place] # (Auto) 0.9 H Abs Immat Gran (auto) 0.08 H Imm/Tot Granulo (auto) 0.7 H PT 21.9 H APTT 37.3 H Sodium 130 L Potassium 6.1 H* 6.0 H Chloride BUN 32.0 H Creatinine 2.51 H Est GFR ( Amer) 31 L Est GFR (Non-Af Amer) 26 L Glucose 151 H Calcium 8.2 L Alkaline Phosphatase 149 H NT-Pro-B Natriuret Pep 3336.0 H* Albumin 3.0 L Urine Protein 30 A Digoxin POC Glucose 08/03/23 08/04/23 08/04/23 15:02 04:49 08:22 WBC RBC 3.48 L Hgb 9.8 L Hct 32.3 L RDW 21.0 H Neut % (Auto) 90.4 H Lymph % (Auto) 7.8 L [place] % (Auto) 0.7 L Eos % (Auto) 0.3 L Baso % (Auto) 0.0 L Neut # (Auto) 6.8 H Lymph # (Auto) 0.6 L [place] # (Auto) 0.1 L Abs Immat Gran (auto) 0.06 H Imm/Tot Granulo (auto) 0.8 H PT 21.4 H APTT Sodium 131 L Potassium 6.0 H Chloride BUN 37.0 H Creatinine 2.94 H Est GFR ( Amer) 26 L Est GFR (Non-Af Amer) 21 L Glucose 242 H Calcium 8.0 L Alkaline Phosphatase NT-Pro-B Natriuret Pep 3612.0 H* Albumin Urine Protein Digoxin 0.2 L POC Glucose 210 H 08/05/23 08/05/23 08/06/23 04:26 20:09 04:44 WBC 12.1 H 13.3 H RBC 3.42 L 3.49 L Hgb 9.6 L 10.0 L Hct 31.0 L 31.1 L RDW 21.0 H 20.6 H Neut % (Auto) 90.6 H 91.7 H Lymph % (Auto) 5.6 L 4.5 L [place] % (Auto) Eos % (Auto) 0.0 L 0.0 L Baso % (Auto) 0.0 L 0.0 L Neut # (Auto) 11.0 H 12.2 H Lymph # (Auto) 0.7 L 0.6 L [place] # (Auto) Abs Immat Gran (auto) 0.12 H 0.12 H Imm/Tot Granulo (auto) 1.0 H 0.9 H PT 22.0 H 21.2 H APTT Sodium 132 L Potassium 3.1 L Chloride 97 L 97 L BUN 49.0 H 54.0 H Creatinine 2.80 H 2.35 H Est GFR ( Amer) 27 L 34 L Est GFR (Non-Af Amer) 23 L 28 L Glucose 444 H 196 H Calcium Alkaline Phosphatase NT-Pro-B Natriuret Pep 4686.0 H* Albumin Urine Protein Digoxin POC Glucose [address] scan - chest: report reviewed and image reviewed Laboratory Findings Labs: Abnormal lab results 08/05/23 08/06/23 Range/Units 20:09 04:44 WBC 13.3 H (4.0-11.0) 10^3/uL RBC 3.49 L (4.70-6.10) 10^6/uL Hgb 10.0 L (14.0-18.0) g/dL Hct 31.1 L (42.0-54.0) % RDW 20.6 H (11.0-15.0) % Neut % (Auto) 91.7 H (43.0-75.0) % Lymph % (Auto) 4.5 L (20.5-60.0) % Eos % (Auto) 0.0 L (0.9-7.0) % Baso % (Auto) 0.0 L (0.2-2.0) % Neut # (Auto) 12.2 H (1.4-6.5) 10^3/uL Lymph # (Auto) 0.6 L (1.2-3.8) 10^3/uL Abs Immat Gran (auto) 0.12 H (0.00-0.03) 10^3/uL Imm/Tot Granulo (auto) 0.9 H (0.0-0.5) % PT 21.2 H (9.0-11.6) sec Potassium 3.1 L (3.5-5.1) mmol/L Chloride 97 L (98-107) mmol/L BUN 54.0 H (7.0-18.0) mg/dL Creatinine 2.35 H (0.70-1.30) mg/dL Est GFR ( Amer) 34 L (>=60) Est GFR (Non-Af Amer) 28 L (>=60) Glucose 196 H (74-106) mg/dL POC Glucose 467 H (74-106) mg/dL All other labs normal. Results CT scan - chest: report reviewed and image reviewed Assessment and Plan Assessment and Plan (1) Hemoptysis: Assessment and Plan: 1. Hemoptysis. Seconday to warfarin therapy, exacerbated when INR is elevated. It does not appear massive, seems to be slowly tapering down from last week. Already evaluated by CT chest 07/31/2023 which did not show any gross masses, endobronchial lesions, or other significant pathology. May be more apt to bleed given underlying CHF and CKD as well. Discussed with patient options, including watchful waiting vs. bronchoscopy for airway evaluation. His performance status is poor at the moment and risks > benefits for a screening endoscopy at this time - the patient voiced agreement. Will monitor for now. If hemoptysis worsens, then will repeat CT and discuss further evaluation/intervention. 2. Acute exacerbation of COPD. He has a history of mucus plugging, noted on CT chest 01/06/2020. Needs to maintain a good pulmonary toilet. Continue current treatment. Encouraged PEP use. 3. Acute exacerbation of chronic systolic congestion heart failure secondary to ischemic cardiomyopathy. Has rales, bilateral pleural effusions secondary to CHF. Fluid/Na+ restriction. 4. Bilateral pleural effusions. Chronic, secondary to CHF. Slightly increased compared to May 2023 imaging. No plans for thoracentesis at this time: risks > benefits. 5. ISAK. Patient has his PAP with him. Continue to use it @ HS/naps & PRN dyspnea. 6. History of tobacco abuse.
--- NOTE | 2023-08-06 19:50 | RESP.RT ---
Placed pt on . Pt wears 3L at home at night.
[2023-08-06] MEDS: AMITRIPTYLINE HCL 25 MG TABLET PO (22:19)
[2023-08-06] MEDS: ATORVASTATIN CALCIUM 40 MG TABLET 80 MG PO (22:19)
[2023-08-06] MEDS: INSULIN DETEMIR 300 UNIT/3 ML INSULN.PEN 60 UNIT SUBQ (22:21)
[2023-08-07] VITALS (13 sets, daily range): BP systolic 122–134; BP diastolic 69–88; PULSE 80–99; RESP 18–20; TEMP 36.6; O2SAT 3–100
[2023-08-07] MEDS: IPRATROPIUM/ALBUTEROL SULFATE 3 ML AMPUL.NEB IH ×6 (03:45→23:15)
[2023-08-07 04:37] LABS: Hematocrit 31.7 % (42.0-54.0); Hemoglobin 10.1 g/dL (14.0-18.0); Immature Granulocytes Abs Auto 0.12 10^3/uL (0.00-0.03); Lymphocytes Absolute Auto 0.6 10^3/uL (1.2-3.8); Lymphocytes Percent Auto 5.3 % (20.5-60.0); Mean Corpuscular HGB Conc 31.9 g/dL (29.9-35.2); Mean Corpuscular Hemoglobin 28.2 pg (25.9-34.0); Mean Corpuscular Volume 88.5 fL (80.0-94.0); Mean Platelet Volume 10.3 fL (9.5-13.5); Monocytes Absolute Auto 0.4 10^3/uL (0.3-0.8); Monocytes Percent Auto 3.4 % (1.7-12.0); Neutrophils Absolute Auto 10.9 10^3/uL (1.4-6.5); Neutrophils Percent Auto 90.3 % (43.0-75.0); Platelet Count 178 10^3/uL (150-450); Red Blood Count 3.58 10^6/uL (4.70-6.10); Red Cell Distribution Width 20.1 % (11.0-15.0); White Blood Count 12.1 10^3/uL (4.0-11.0)
[2023-08-07 04:57] LABS: Anion Gap 11.6; BUN Creatinine Ratio 28.1; Calcium 8.2 mg/dL (8.5-10.1); Carbon Dioxide 32.5 mmol/L (21.0-32.0); Chloride 95 mmol/L (98-107); Estimated GFR (African America 42 (>=60); Estimated GFR (Non-African Ame 35 (>=60); Glucose 313 mg/dL (74-106); Potassium 3.1 mmol/L (3.5-5.1); Sodium 136 mmol/L (136-145)
[2023-08-07 04:58] LABS: INR 1.81; Prothrombin Time 18.6 sec (9.0-11.6)
[2023-08-07] MEDS: METHYLPREDNISOLONE SOD SUCC PF 40 MG/ML VIAL IVP ×3 (05:12→22:16)
[2023-08-07] MEDS: BENZONATATE 100 MG CAPSULE 200 MG PO ×3 (05:12→20:31)
[2023-08-07] MEDS: LEVOTHYROXINE SODIUM 25 MCG TABLET 50 MCG PO (06:12)
--- NOTE | 2023-08-07 07:45 | XR_ITS ---
The [address] [address] Patient Name: ADWOA PORTER MRN: [id number] date: 1955 Sex: M Assigned Patient Location: [place] Current Patient Location: [place] Accession/Order Number: [id number] Exam Date: 08/07/2023 09:35 Report Date: 08/07/2023 10:15 At the request of: SHAIKH GIGI Procedure: XR chest 1V EXAMINATION: XR chest 1V 08/07/2023 7:13 AM PDT HISTORY: SOB TECHNIQUE: Single frontal view of the chest acquired. COMPARISONS: Chest x-ray 08/03/2023. FINDINGS: Lines/tubes/other: Pacemaker and leads are similar. Heart and mediastinum: Stable. Bones: No acute osseous abnormality. Lungs: Patchy bibasilar opacification is similar. There is pulmonary vascular engorgement, similar. Pleura: Trace bilateral pleural effusions. Other: None. XR/XR chest 1V IMPRESSION: 1. Similar findings of mild pulmonary edema. 2. Mild patchy bibasilar opacification is also similar and could represent atelectasis, pulmonary edema, pneumonia, and aspiration. Electronically authenticated by: MAURO DOMINGUEZ Date: 08/07/2023 10:15
[2023-08-07] MEDS: ASPIRIN 81 MG TABLET.DR PO (08:31)
[2023-08-07] MEDS: AZITHROMYCIN 250 MG TABLET 500 MG PO (08:31)
[2023-08-07] MEDS: L. ACIDOPHILUS/L.BULGARICUS 1 PACKET GRAN.PACK PO ×2 (08:31→20:31)
[2023-08-07] MEDS: CANAGLIFLOZIN 100 MG TABLET 300 MG PO (08:31)
[2023-08-07] MEDS: ISOSORBIDE DINITRATE 20 MG TABLET PO ×2 (08:31→17:10)
[2023-08-07] MEDS: DIGOXIN 125 MCG TABLET PO (08:32)
[2023-08-07] MEDS: INSULIN ASPART 300 UNIT/3 ML PEN SUBQ ×4 (08:34→22:16)
[2023-08-07] MEDS: INSULIN DETEMIR 300 UNIT/3 ML INSULN.PEN 45 UNIT SUBQ (08:34)
[2023-08-07] MEDS: CARVEDILOL 25 MG TABLET PO ×2 (08:37→20:31)
[2023-08-07] MEDS: GABAPENTIN 400 MG CAPSULE PO ×2 (08:38→20:31)
--- NOTE | 2023-08-07 09:37 | SWNOTE1 ---
Pt has palliative care coming in as well from [facility], SW called and left message for the healthcare corporate account director.
[2023-08-07] MEDS: POTASSIUM CHLORIDE 40 MEQ in 0.9 % SODIUM CHLORIDE 250 ML 67.5 MEQ IV (09:50)
[2023-08-07] MEDS: FUROSEMIDE 40 MG/4 ML VIAL 80 MG IVP ×2 (09:50→20:31)
--- NOTE | 2023-08-07 10:11 | CM.NOTE ---
Rounds made with Dr. Moore, wound consult for pt's L index finger and R great toe. No discharge today.
--- NOTE | 2023-08-07 10:42 | SWNOTE1 ---
SW spoke with Lilia from palliative care and pt has been getting palliative care since 03-05-23, and he has [facility] coming in as well. SW to keep both palliative care and HH updated on discharge. No discharge today.
--- NOTE | 2023-08-07 11:02 | PM.IMPN1 ---
Progress Note: A&P Assessment and Plan (1) Hemoptysis: (2) Acute exacerbation of chronic obstructive pulmonary disease: Assessment and Plan: Doing better. Will switch to PO Prednisone. C/w duonebs. (3) Acute on chronic HFrEF (heart failure with reduced ejection fraction): Assessment and Plan: Still volume overload on exam. C/w Lasix 80 q12. Monitor I/Os, daily weights. (4) Acute respiratory failure with hypoxia: Assessment and Plan: on RA now. (5) Cough with hemoptysis: Assessment and Plan: Bright red blood with cough and sputum Persistent and ongoing for one week - improving CT chest - no sig abnormality noted. No intervention as per Pulm and outpatient f/u as clinically indicated. (6) Acute hyperkalemia: Assessment and Plan: Resolved. Monitor. Now hypokalemic because of being on diuretic. Repleted with PO/IV potassium (7) Hypokalemia: Assessment and Plan: Due to IV diuresis. Repleted with PO/IV potassium (8) CKD (chronic kidney disease) stage 4, GFR 15-29 ml/min: Assessment and Plan: Cr more or less at baseline. Monitor closely while diuresing. (9) CAD (coronary artery disease): Assessment and Plan: No evidence of active ischemia. Denies CP. Monitor. C/w ASA, Coreg, statin (10) Paroxysmal atrial fibrillation: Assessment and Plan: On Comadin for AC. In NSR currently. Previously INR was elevated but now at goal (11) Type 2 diabetes mellitus with hyperglycemia: Assessment and Plan: Hyperglycemia improved. FSBS were running above 600 all day yesterday. On Lantus 45 qam, 60 units qhs. Outpatient dose is 45 q12. (12) Hypothyroid: Assessment and Plan: C/w synthyroid (13) HLD (hyperlipidemia): Assessment and Plan: c/w statin Internal Medicine - PN: Subj Subjective Interval history: Seen and examined. Doing better. Good UO. But still volume overload on exam and not quite ready to be switched to PO diuretic. Exam Constitutional Vital Signs, click to edit/add: Last Vital Signs Temp 97.9 F 08/07/23 05:27 Pulse 86 08/07/23 07:16 Resp 20 08/07/23 07:16 BP 122/69 08/07/23 05:27 Pulse Ox 97 08/07/23 07:16 O2 Del Method Room Air 08/07/23 07:16 O2 Flow Rate 3 08/07/23 03:56 HENMT Common normals: normocephalic and head/scalp atraumatic Head and scalp: normocephalic and atraumatic Eye Common normals: conjunctivae normal and no scleral icterus Conjunctiva: conjunctiva(e) normal Respiratory Common normals: normal respiratory effort and no use of accessory muscles Effort & inspection: able to speak in complete sentences Auscultation: rales Cardio Common normals: regular rate, S1 normal heart sound and S2 normal heart sound Rate: regular rate Heart sounds: S1 normal and S2 normal GI Common normals: Normal to inspection, nondistended, normoactive bowel sounds present, soft to palpation, non-tender and no hepatosplenomegaly Palpation: soft and no hepatosplenomegaly Extremity General: edema (b/l +2) Other: 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 Neuro Common normals: oriented x3, moves all extremities and no focal motor deficits Psych Common normals: mental status grossly normal, denies hallucinations, denies homicidal ideation and denies suicidal ideation Internal Medicine - PN: Obj Da Labs Labs: Laboratory Results - last 24 hr 08/07/23 04:07 WBC 12.1 H RBC 3.58 L Hgb 10.1 L Hct 31.7 L MCV 88.5 MCH 28.2 MCHC 31.9 RDW 20.1 H Plt Count 178 MPV 10.3 Neut % (Auto) 90.3 H Lymph % (Auto) 5.3 L [place] % (Auto) 3.4 Eos % (Auto) 0.0 L Baso % (Auto) 0.0 L Neut # (Auto) 10.9 H Lymph # (Auto) 0.6 L [place] # (Auto) 0.4 Eos # (Auto) 0.0 Baso # (Auto) 0.0 Abs Immat Gran (auto) 0.12 H Imm/Tot Granulo (auto) 1.0 H PT 18.6 H INR 1.81 Sodium 136 Potassium 3.1 L Chloride 95 L Carbon Dioxide 32.5 H Anion Gap 11.6 BUN 54.0 H Creatinine 1.92 H Est GFR ( Amer) 42 L Est GFR (Non-Af Amer) 35 L BUN/Creatinine Ratio 28.1 Glucose 313 H Calcium 8.2 L Urinary Catheter Management Urinary Catheter Management Urethral: Cath placed during this visit: yes Urethral indwelling: Yes Reason for continuing: measure accurate output Insertion date: 08/03/23 Insertion time: 14:09
--- NOTE | 2023-08-07 14:23 | CM.NOTE ---
Discussed with pt about wound care, Ashley had called nursing and explained it should be a podiatry consult. Manolo tollivert sent to Dr. Moore.
--- NOTE | 2023-08-07 14:55 | CM.NOTE ---
Dr. Moore messaged back, pt will f/u with podiatry as an outpatient.
[2023-08-07] MEDS: WARFARIN SODIUM 2.5 MG TABLET PO (17:10)
[2023-08-07 21:35] LABS: Glucometer 393 mg/dL (74-106)
[2023-08-07] MEDS: AMITRIPTYLINE HCL 25 MG TABLET PO (22:16)
[2023-08-07] MEDS: ATORVASTATIN CALCIUM 40 MG TABLET 80 MG PO (22:16)
[2023-08-07] MEDS: INSULIN DETEMIR 300 UNIT/3 ML INSULN.PEN 60 UNIT SUBQ (22:17)
--- NOTE | 2023-08-07 23:27 | RESP.RT ---
Pt placed on home cpap with 3L 02 bleed in for the night.
[2023-08-08] VITALS (7 sets, daily range): BP systolic 119–122; BP diastolic 71–73; PULSE 85–88; RESP 16–18; TEMP 36.7; O2SAT 90–98
[2023-08-08] MEDS: IPRATROPIUM/ALBUTEROL SULFATE 3 ML AMPUL.NEB IH ×3 (03:53→10:38)
[2023-08-08] MEDS: BENZONATATE 100 MG CAPSULE 200 MG PO (05:11)
[2023-08-08] MEDS: METHYLPREDNISOLONE SOD SUCC PF 40 MG/ML VIAL IVP (05:11)
[2023-08-08 05:40] LABS: Basophils Percent Auto 0.1 % (0.2-2.0); Hematocrit 34.3 % (42.0-54.0); Hemoglobin 10.8 g/dL (14.0-18.0); Immature Granulocytes Abs Auto 0.09 10^3/uL (0.00-0.03); Immature Granulocytes Pct Auto 0.8 % (0.0-0.5); Lymphocytes Absolute Auto 0.8 10^3/uL (1.2-3.8); Lymphocytes Percent Auto 7.3 % (20.5-60.0); Mean Corpuscular HGB Conc 31.5 g/dL (29.9-35.2); Mean Corpuscular Hemoglobin 28.4 pg (25.9-34.0); Mean Corpuscular Volume 90.3 fL (80.0-94.0); Monocytes Absolute Auto 0.4 10^3/uL (0.3-0.8); Monocytes Percent Auto 3.3 % (1.7-12.0); Neutrophils Absolute Auto 9.8 10^3/uL (1.4-6.5); Neutrophils Percent Auto 88.5 % (43.0-75.0); Platelet Count 179 10^3/uL (150-450); White Blood Count 11.1 10^3/uL (4.0-11.0)
[2023-08-08 05:46] LABS: INR 1.57; Prothrombin Time 16.2 sec (9.0-11.6)
[2023-08-08 05:51] LABS: Anion Gap 8.6; BUN Creatinine Ratio 28.9; Calcium 8.4 mg/dL (8.5-10.1); Carbon Dioxide 38.3 mmol/L (21.0-32.0); Chloride 98 mmol/L (98-107); Estimated GFR (African America 46 (>=60); Estimated GFR (Non-African Ame 38 (>=60); Glucose 219 mg/dL (74-106); Potassium 3.9 mmol/L (3.5-5.1); Sodium 141 mmol/L (136-145)
[2023-08-08] MEDS: LEVOTHYROXINE SODIUM 25 MCG TABLET 50 MCG PO (06:21)
[2023-08-08] MEDS: ISOSORBIDE DINITRATE 20 MG TABLET PO (07:34)
[2023-08-08] MEDS: CARVEDILOL 25 MG TABLET PO (08:25)
[2023-08-08] MEDS: DIGOXIN 125 MCG TABLET PO (08:26)
[2023-08-08] MEDS: GABAPENTIN 400 MG CAPSULE PO (08:26)
[2023-08-08] MEDS: CANAGLIFLOZIN 100 MG TABLET 300 MG PO (08:26)
[2023-08-08] MEDS: ASPIRIN 81 MG TABLET.DR PO (08:26)
[2023-08-08] MEDS: AZITHROMYCIN 250 MG TABLET 500 MG PO (08:26)
[2023-08-08] MEDS: L. ACIDOPHILUS/L.BULGARICUS 1 PACKET GRAN.PACK PO (08:26)
[2023-08-08] MEDS: INSULIN ASPART 300 UNIT/3 ML PEN SUBQ (08:31)
[2023-08-08] MEDS: INSULIN DETEMIR 300 UNIT/3 ML INSULN.PEN 45 UNIT SUBQ (08:32)
[2023-08-08] MEDS: FUROSEMIDE 40 MG/4 ML VIAL 80 MG IVP (08:33)
--- NOTE | 2023-08-08 12:02 | CM.NOTE ---
Rounds made with isiah Zelaya for discharge to home today. Pt has [facility] and palliative care.
--- NOTE | 2023-08-08 12:05 | P.DS_ITS ---
DS: Providers Provider Date of admission: 08/05/23 08:55 Primary care physician: VINNIE STEWART Consults: 08/06/23 10:47 Consult to Pulmonology Routine Consulting Provider: Fred Connelly Reason for consultation: Hemoptysis Has provider been notified: Yes Attending physician on discharge: Shaikh Teresa Discharging clinician: Shaikh Teresa Anticipated date of discharge: 08/09/23 DS: Diagnosis Discharge Diagnosis (1) Hemoptysis: Assessment and plan: Resolved (2) Acute exacerbation of chronic obstructive pulmonary disease: Assessment and plan: Minimal wheezing on exam. Improved. D/c on PO prednisone. (3) Acute on chronic HFrEF (heart failure with reduced ejection fraction): Assessment and plan: More or less euvolemic. Will d/c on oral Lasix 80 q12 (4) Acute respiratory failure with hypoxia: Assessment and plan: Resolved. Now on RA. (5) Cough with hemoptysis: Assessment and plan: Resolved. No mass/sig abnormality noted on CT chest (6) Acute hyperkalemia: Assessment and plan: rsolved (7) Hypokalemia: Assessment and plan: resolved (8) CKD (chronic kidney disease) stage 4, GFR 15-29 ml/min: Assessment and plan: F/u with Nephrology as outpatient. (9) CAD (coronary artery disease): Assessment and plan: Stable. No CP, Palpitations (10) Paroxysmal atrial fibrillation: Assessment and plan: On Coumadin as outpatient. In NSR. (11) Type 2 diabetes mellitus with hyperglycemia: Assessment and plan: Poorly controlled. Will defer changes to PCP. (12) Hypothyroid: Assessment and plan: c/w synthyroid (13) HLD (hyperlipidemia): Assessment and plan: C/w statin DS: Summary Hospital Course Hospital Course: Patient presented with worsening SOB, Weight gain, LE edema, cough with hemoptysis. He was admitted for acute resp failure with hypoxia sec to acute on chronic systolic HF, COPD exacerbation. He initially required 2-3 L O2 via NC. Patient was started on systemic steroids, inhaled bronchodilators along with IV lasix. He was weaned off of O2. His hemoptysis also resolved. He was eval by Pulm for it and recommended close f/u. He was closely monitored while inpatient while on diuretic and required Potassium supplementation. Patient continued to improve clinically and is stable for dc today on oral prednisone and Lasix for his CHF Educated on worrisome signs and symptoms and asked to f/u with PCP, cardiology within 1-2 weeks. Status at Discharge Functional status at discharge: independent ambulation Overall status at discharge: patient is progressing back to baseline Time Spent with Patient Time attestation: Total time spent providing and/or coordinating discharge services: Time spent: greater than 30 minutes Exam Constitutional Vital Signs, click to edit/add: Last Vital Signs Temp 98.1 F 08/08/23 04:34 Pulse 85 08/08/23 08:26 Resp 16 08/08/23 08:26 BP 119/71 08/08/23 08:33 Pulse Ox 98 08/08/23 10:39 O2 Del Method Room Air 08/08/23 10:39 O2 Flow Rate 3 08/08/23 03:52 HENMT Common normals: normocephalic and head/scalp atraumatic Head and scalp: normocephalic and atraumatic Eye Common normals: conjunctivae normal and no scleral icterus Conjunctiva: conjunctiva(e) normal Respiratory Common normals: normal respiratory effort and no use of accessory muscles Effort & inspection: able to speak in complete sentences Auscultation: crackles Laterality: left Cardio Common normals: regular rate, S1 normal heart sound and S2 normal heart sound Rate: regular rate Heart sounds: S1 normal and S2 normal GI Common normals: Normal to inspection, nondistended, normoactive bowel sounds present, soft to palpation, non-tender and no hepatosplenomegaly Palpation: soft and no hepatosplenomegaly Extremity General: edema (trace) Other: 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 Neuro Common normals: oriented x3, moves all extremities and no focal motor deficits Psych Common normals: mental status grossly normal, denies hallucinations, denies homicidal ideation and denies suicidal ideation DS: Data Data Completed and Pending Labs on day of discharge: Labs from last 24 hours 08/08/23 08/07/23 04:23 21:28 WBC 11.1 H RBC 3.80 L Hgb 10.8 L Hct 34.3 L MCV 90.3 MCH 28.4 MCHC 31.5 RDW 20.0 H Plt Count 179 MPV 10.0 Neut % (Auto) 88.5 H Lymph % (Auto) 7.3 L [place] % (Auto) 3.3 Eos % (Auto) 0.0 L Baso % (Auto) 0.1 L Neut # (Auto) 9.8 H Lymph # (Auto) 0.8 L [place] # (Auto) 0.4 Eos # (Auto) 0.0 Baso # (Auto) 0.0 Abs Immat Gran (auto) 0.09 H Imm/Tot Granulo (auto) 0.8 H PT 16.2 H INR 1.57 Sodium 141 Potassium 3.9 Chloride 98 Carbon Dioxide 38.3 H Anion Gap 8.6 BUN 52.0 H Creatinine 1.80 H Est GFR ( Amer) 46 L Est GFR (Non-Af Amer) 38 L BUN/Creatinine Ratio 28.9 Glucose 219 H Calcium 8.4 L POC Glucose 393 H Discharge Plan Discharge Disposition: Home, Self-Care Condition: Fair Discharge Medications: New prednisone 20 mg tablet 20 mg PO BID 5 Days Qty: 10 0RF Continued atorvastatin 80 mg tablet 80 mg PO DAILY carvedilol 25 mg tablet 25 mg PO Q12H Farxiga 10 mg tablet 10 mg PO DAILY aspirin [Adult Low Dose Aspirin] 81 mg tablet,delayed release (DR/EC) 81 mg PO DAILY hydrocodone-acetaminophen 5-325 mg tablet 1 tab PO Q8H PRN (Reason: pain, moderate) gabapentin 400 mg capsule 400 mg PO Q12H spironolactone 25 mg tablet 25 mg PO QAM furosemide 80 mg tablet 80 mg PO Q12H Patient Comments: takes with 20mg for total of 100mg twice daily levothyroxine 50 mcg tablet 50 mcg PO .ACB isosorbide dinitrate 20 mg tablet 20 mg PO BIDWM digoxin 125 mcg (0.125 mg) tablet 0.125 mg PO QDAY furosemide 20 mg tablet 20 mg PO BID Patient Comments: takes with 80mg tab twice a day for total of 100mg bid potassium chloride [Klor-Con M10] 10 mEq Tablet,Er Particles/Crystals 20 meq PO TID Qty: 90 11RF warfarin 2.5 mg tablet 2.5 mg PO DAILY Patient Comments: DIRECTED BY CLINIC nitroglycerin 0.4 mg tablet, sublingual 0.4 mg sublingual Q5M PRN (Reason: chest pain) hydralazine 50 mg tablet 50 mg PO Q8H Rx Instructions: PER RETAIL FILL HX - LAST FILLED 02/20/23 #270 FOR A 90 DAY SUPPLY cyanocobalamin (vitamin B-12) 1,000 mcg tablet extended release 1,000 mcg PO DAILY amitriptyline 25 mg tablet 25 mg PO .hs Rx Instructions: PER RETAIL FILL HX - LAST FILLED 01/30/23 #90 FOR A 90 DAY SUPPLY metolazone 2.5 mg Tablet 2.5 mg PO DAILY Activity: increase activity as tolerated and resume usual activities as tolerated Diet: advance to your usual diet Research Chief Engineer/Tool Turret 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, phone number is [phone]. Also will resume palliative care through [facility], phone number is [phone]. Forms: Portal Instructions Follow Up Appointments: Follow up appt. with Dr. Stewart on @ 1:30pm Office#: [phone]
--- NOTE | 2023-08-09 13:49 | CM.DCFOLLOWU ---
Person spoke with: Rey How are you feeling? Better How is your pain? No pain Did you understand your discharge instructions? Yes Do you have any questions about your discharge instructions? No Were you given any prescriptions at discharge? yes Were you able to get your prescriptions filled? Picking up now Do you understand how to take your medications as ordered? Yes Do you have any questions about your follow up appointment and do you plan to keep your follow up appointment? No i have appt for podiatry and my family doctor Is there anything else that you would like to discuss? No Questions/Comments/Concerns/Other:
== END 2023-08-08 12:28 | disposition home or self-care (01) | DRG 190 ==
LOC: ER 15:47 → MS 08-04 20:11
PROVIDERS: Family Medicine; Personal Emergency Response Attendant; Admitting Provider Internal Medicine; Emergency Provider Emergency Medicine; PCP Family Medicine; Visit Provider Internal Medicine
DX: J44.1 Chronic obstructive pulmonary disease with (acute) exacerbation (principal); I50.23 Acute on chronic systolic (congestive) heart failure; J96.01 Acute respiratory failure with hypoxia; I13.0 Hypertensive heart and chronic kidney disease with heart failure and stage 1 through stage 4 chronic kidney disease, or unspecified chronic kidney disease; N18.4 Chronic kidney disease, stage 4 (severe); R04.2 Hemoptysis; D68.32 Hemorrhagic disorder due to extrinsic circulating anticoagulants; T45.515A Adverse effect of anticoagulants, initial encounter; E87.5 Hyperkalemia; E87.6 Hypokalemia; T50.1X5A Adverse effect of loop [high-ceiling] diuretics, initial encounter; I25.10 Atherosclerotic heart disease of native coronary artery without angina pectoris; I48.0 Paroxysmal atrial fibrillation; E11.65 Type 2 diabetes mellitus with hyperglycemia; E03.9 Hypothyroidism, unspecified; G47.33 Obstructive sleep apnea (adult) (pediatric); E78.5 Hyperlipidemia, unspecified; Z87.891 Personal history of nicotine dependence; Z95.810 Presence of automatic (implantable) cardiac defibrillator; Z79.82 Long term (current) use of aspirin; Z79.890 Hormone replacement therapy; Z79.899 Other long term (current) drug therapy; Z79.01 Long term (current) use of anticoagulants; Z89.412 Acquired absence of left great toe; Z89.422 Acquired absence of other left toe(s); Z82.49 Family history of ischemic heart disease and other diseases of the circulatory system; Z80.9 Family history of malignant neoplasm, unspecified
CPT/HCPCS: 36415; 51702; 51798; 71045; 80048; 80053; 80162; 81003; 82948; 83880; 84132; 84484; 85025; 85610; 85730; 87070; 93005; 94640; 94667; 94668; 94761; 96365; 96366; 96367; 96368; 96375; 96376; 99285; G0378; J0456; J2920; J2930; J3480

== ENCOUNTER 2023-08-10 13:44 | Outpatient (OUT) | payer MEDICARE, SELFPAY ==
--- NOTE | 2023-08-10 13:48 | CT_ITS ---
[address] [address] Patient Name: ADWOA PORTER MRN: [id number] date: 1955 Sex: M Assigned Patient Location: CT Current Patient Location: CT Accession/Order Number: [id number] Exam Date: 08/10/2023 13:55 Report Date: 08/10/2023 15:45 At the request of: JORGE ARROYO Procedure: CT foot RT wo con EXAM: CT foot RT wo con HISTORY: Chronic ulcer of first digit COMPARISON: X-rays 07/03/2023 TECHNIQUE: Axial CT imaging is performed. Sagittal and coronal reformatted/reconstructed sequences were additionally performed FINDINGS: IMPRESSION: Again demonstrated is the chronic fragmentation and erosion of the medial aspect of the first proximal phalanx head and the adjacent first distal phalanx base. Mild adjacent soft tissue edema. No visualized acute fracture, dislocation, subluxation or osseous lesion. Chronic talocalcaneal coalition. Scattered age-related degenerative joint space changes. Dorsal soft tissue edema of the forefoot and midfoot. No visualized soft tissue collection or hematoma. Fractures. Electronically authenticated by: BALBIR TOURE Date: 08/10/2023 15:45
== END 2023-08-10 13:45 | disposition home or self-care (01) ==
LOC: CT 13:44
PROVIDERS: PCP Family Medicine; Visit Provider Podiatrist Foot & Ankle Surgery
DX: M86.9 Osteomyelitis, unspecified (principal); L97.529 Non-pressure chronic ulcer of other part of left foot with unspecified severity
CPT/HCPCS: 73700

== ENCOUNTER 2023-08-15 12:32 | Outpatient (OUT) | payer MEDICARE, SELFPAY ==
[2023-08-15 14:48] LABS: Anion Gap 12.1; BUN Creatinine Ratio 27.4; Calcium 8.2 mg/dL (8.5-10.1); Carbon Dioxide 34.9 mmol/L (21.0-32.0); Chloride 88 mmol/L (98-107); Estimated GFR (African America 49 (>=60); Estimated GFR (Non-African Ame 41 (>=60); Glucose 327 mg/dL (74-106); Sodium 132 mmol/L (136-145)
== END 2023-08-15 12:33 | disposition home or self-care (01) ==
PROVIDERS: PCP Family Medicine; Visit Provider Nurse Practitioner
DX: I50.22 Chronic systolic (congestive) heart failure (principal); R06.02 Shortness of breath; N18.32 Chronic kidney disease, stage 3b
CPT/HCPCS: 36415; 80048; 83880

== ENCOUNTER 2023-08-20 01:36 | Outpatient (RCR) | payer MEDICARE, SELFPAY | END 2023-09-18 17:14 | disposition home or self-care (01) | LOC: MM 01:36 | PROVIDERS: PCP Family Medicine; Visit Provider Internal Medicine | DX: Z51.81 Encounter for therapeutic drug level monitoring (principal); Z79.01 Long term (current) use of anticoagulants; I48.91 Unspecified atrial fibrillation ==

== ENCOUNTER 2023-08-20 10:51 | Observation (INO) | payer MEDICARE, SELFPAY ==
[2023-08-20] VITALS (16 sets, daily range): BP systolic 120–137; BP diastolic 72–91; PULSE 85–88; RESP 18–24; TEMP 36.3–36.7; O2SAT 90–100; BMI 31.5; BMI 31.7
--- NOTE | 2023-08-20 11:04 | ED_ITS ---
HPI - General Adult General Chief complaint: Shortness of Breath/Dyspnea Stated complaint: SHORTNESS OF BREATH Time Seen by Provider: 08/20/23 11:03 Source: patient Mode of arrival: Wheelchair Limitations: no limitations History of Present Illness HPI narrative: Patient is a 68-year-old male who is presenting to the Emergency Room with the intention of being admitted to the hospital for diuresis. Patient has a history of chronic obstructive pulmonary disease and congestive heart failure. Patient is taking 140 mg of Lasix twice a day, patient's dynamic balancer set up worker is Dr Ceballos. Pt has no Abdominal pain, nausea or vomiting. No diarrhea. No other acute complaints. 1120 I spoke to MARY in the specialty clinic for [facility], she's medical billing clerk that Had called the patient and inform the patient that he needs to come to the Emergency Room to be diuresis for BNP 15,000, also potassium 3.0 And fluid overload. These labs are done last week. They have increased his Lasix 140 mg twice a day is not helping, they cannot recent at home. Patient has chronic wounds to his lower extremities. Patient has a new wound to his left index finger from a burn last week. Patient has neuropathy to his hands and lower extremities. Patient is in wound clinic. Patient is currently being treated for his chronic wounds to his anterior shins. Patient lives at home with his girlfriend. Patient does wear CPAP at nighttime. Patient has been wearing oxygen during the day to help with shortness of breath. Patient has no fever or chills. No sick contacts. Patient is a DNR CCA . All systems are negative except as noted/marked. All systems reviewed and otherwise negative. . Nurses note and vital signs reviewed and patient is not hypoxic. General: The patient appears well and in no apparent distress. Patient is resting comfortably on cart. Patient is not toxic, lethargic, or listless Skin: Warm, dry, no pallor noted. There is no rash noted. No petechiae, purpura. Patient has chronic wounds to bilateral lower extremities, they have dressings on them, they're currently being treated by wound clinic. Patient has left index finger burn from last week, no secondary signs of infection, subcutaneous tissue exposed. Bacitracin and dry dressing was placed. Head: Normocephalic, atraumatic Eye: Normal conjunctiva, no drainage, EOMI. PERRL Ears, Nose, Mouth, and Throat: oral mucosa is moist. Nares patent. Mouth without vesicles. Cardiovascular: Regular Rate and Rhythm, no murmur, gallop, rub Respiratory: Patient is in no distress, no accessory muscle use, lungs are Bilateral congestion, mild bilateral rales, mild bilateral wheezing mouth to moderate diffusely, no respiratory distress, equal breath sounds bilateral Back: non-tender, no CVA tenderness bilaterally to percussion. No CT LS midline pain GI: soft, no tenderness to palpation, no masses appreciated. No rebound, guarding, or rigidity noted. No flank pain bilateral, No distention Musculoskeletal: Patient has full range of motion of all of the extremities, no motor, sensory, or focal neurological deficits. 3+ pitting edema to lower extremities, chronic,Patient has chronic wounds to bilateral anterior shins, see skin assessment. Dry dressings were applied, patient is currently under care with wound clinic. Neurological: A&O x3, normal speech Psychiatric: Cooperative Related Data Home Medications Medication Instructions Recorded Confirmed aspirin 81 mg tablet,delayed 81 mg PO DAILY 05/24/23 08/20/23 release (Adult Low Dose Aspirin) atorvastatin 80 mg tablet 80 mg PO DAILY 05/24/23 08/20/23 carvedilol 25 mg tablet 25 mg PO Q12H 05/24/23 08/20/23 dapagliflozin propanediol 10 mg 10 mg PO DAILY 05/24/23 08/20/23 tablet (Farxiga) digoxin 125 mcg (0.125 mg) tablet 0.125 mg PO QDAY 05/24/23 08/20/23 furosemide 80 mg tablet 80 mg PO Q12H 05/24/23 08/20/23 gabapentin 400 mg capsule 400 mg PO Q12H 05/24/23 08/20/23 hydrocodone 5 mg-acetaminophen 325 1 tab PO Q8H PRN pain, moderate 05/24/23 08/20/23 mg tablet isosorbide dinitrate 20 mg tablet 20 mg PO BIDWM 05/24/23 08/20/23 levothyroxine 50 mcg tablet 50 mcg PO .ACB 05/24/23 08/20/23 spironolactone 25 mg tablet 25 mg PO QAM 05/24/23 08/20/23 amitriptyline 25 mg tablet 25 mg PO .COMPLEX 06/02/23 08/20/23 cyanocobalamin (vitamin B-12) 1,000 mcg PO DAILY 06/02/23 08/20/23 1,000 mcg tablet,extended release hydralazine 50 mg tablet 50 mg PO Q8H 06/02/23 08/20/23 metolazone 2.5 mg tablet 2.5 mg PO DAILY 06/02/23 08/20/23 nitroglycerin 0.4 mg sublingual 0.4 mg sublingual Q5M PRN chest 06/02/23 08/20/23 tablet pain warfarin 2.5 mg tablet 2.5 mg PO DAILY 06/02/23 08/20/23 furosemide 20 mg tablet 20 mg PO BID 06/20/23 08/20/23 Previous Rx's Medication Instructions Recorded potassium chloride 10 mEq 20 meq PO TID #90 tabs 06/21/23 tablet,extended release(part/cryst) (Klor-Con M) Allergies Allergy/AdvReac Type Severity Reaction Status Date / Time No Known Drug Allergies Allergy Verified 07/31/23 13:47 [facility] Medical History (Updated 08/20/23 @ 12:31 by Rodrick Coyle MD) Acute urinary retention ?R33.8 - Other retention of urine (ICD-10) Anemia in chronic kidney disease ?N18.9 - Chronic kidney disease, unspecified (ICD-10) ?D63.1 - Anemia in chronic kidney disease (ICD-10) Ascites ?R18.8 - Other ascites (ICD-10) Benign essential hypertension ?I10 - Essential (primary) hypertension (ICD-10) CAD (coronary artery disease) ?I25.10 - Atherosclerotic heart disease of [place] coronary artery without angina pectoris (ICD-10) Cardiac defibrillator in place ?Z95.810 - Presence of automatic (implantable) cardiac defibrillator (ICD-10) Chronic HFrEF (heart failure with reduced ejection fraction) ?I50.22 - Chronic systolic (congestive) heart failure (ICD-10) Chronic kidney disease, stage 3a ?N18.31 - Chronic kidney disease, stage 3a (ICD-10) CKD (chronic kidney disease) stage 4, GFR 15-29 ml/min ?N18.4 - Chronic kidney disease, stage 4 (severe) (ICD-10) Closed head injury ?S09.90XA - Unspecified injury of head, initial encounter (ICD-10) COPD (chronic obstructive pulmonary disease) ?J44.9 - Chronic obstructive pulmonary disease, unspecified (ICD-10) Elevated INR ?R79.1 - Abnormal coagulation profile (ICD-10) Fluid retention ?R60.9 - Edema, unspecified (ICD-10) HLD (hyperlipidemia) ?E78.5 - Hyperlipidemia, unspecified (ICD-10) Hypothyroid ?E03.9 - Hypothyroidism, unspecified (ICD-10) Pacemaker ?Z95.0 - Presence of cardiac pacemaker (ICD-10) Paroxysmal atrial fibrillation ?I48.0 - Paroxysmal atrial fibrillation (ICD-10) Pneumonia ?J18.9 - Pneumonia, unspecified organism (ICD-10) Type 2 diabetes mellitus with hyperglycemia ?E11.65 - Type 2 diabetes mellitus with hyperglycemia (ICD-10) Surgical History (Updated 06/20/23 @ 13:44 by Susanna Gill) History of appendectomy ?Z90.49 - Acquired absence of other specified parts of digestive tract (ICD- 10) Family History Mother Family history of CHF (congestive heart failure) Brother Family history of cancer Social History Within the past year, how often did you have a drink containing alcohol: never Within the past year, how often did you have six or more drinks on one occasion: never Score interpretation: A score less than 4 is consistent with normal alcohol consumption. 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 Known occupational exposures/hazards: No Highest level of school completed/degree received: high school graduate Do you want help with school or training: No Are you now , , , , never or living with a partner: living with partner In a typical week, how many times do you talk on the telephone with family, friends, or neighbors: 3 or more times per week How often do you get together with friends or relatives: 3 or more times per week How often do you attend latter day or yarsanism services: never Do you belong to any clubs or organizations such as latter day groups unions, fraternal or athletic groups, or school groups: no Total score: 2 Score interpretation: A score of greater than or equal to 2 indicates the lowest level of social isolation. Little interest or pleasure in doing things: not at all Feeling down, depressed, or hopeless: not at all Feel stressed/tense/nervous/anxious/difficulty sleeping: not at all Due to disability, difficulty making decisions: No Do you think of yourself as: straight/heterosexual Gender Identity: male Exam Constitutional Vital Signs, click to edit/add: Last Vital Signs Temp 98.0 F 08/20/23 10:54 Pulse 88 08/20/23 10:54 Resp 24 08/20/23 10:54 BP 137/91 08/20/23 11:49 Pulse Ox 100 08/20/23 12:09 O2 Del Method Nasal Cannula 08/20/23 12:09 O2 Flow Rate 2 08/20/23 12:09 Course Vital Signs Vital signs: Vital Signs Temperature 98.0 F 08/20/23 10:54 Pulse Rate 88 08/20/23 10:54 Respiratory Rate 24 08/20/23 10:54 Blood Pressure 137/91 08/20/23 10:54 Pulse Oximetry 93 L 08/20/23 10:54 Oxygen Delivery Method Room Air 08/20/23 10:54 Temperature 98.0 F 08/20/23 10:54 Pulse Rate 88 08/20/23 10:54 Respiratory Rate 24 08/20/23 10:54 Blood Pressure 137/91 08/20/23 11:49 Pulse Oximetry 100 08/20/23 12:09 Oxygen Delivery Method Nasal Cannula 08/20/23 12:09 Oxygen Delivery Flow Rate 2 08/20/23 12:09 Medical Decision Making MDM Narrative Medical decision making narrative: . Patient was given one dose of IV Bumex. Patient's BNP has improved, patient chest x-ray has improved. Patient has chronic wounds to his lower extremities, also his left index finger. Patient will be admitted for further diuresis. Patient's lab work has improved compared to last Sunday. Patient and his girlfriend at bedside are aware that his x-ray, lab work looks better than it did last week. Patient's dynamic balancer set up worker is Dr. Ceballos. Patient will be admitted for MedSurg telemetry observation to Dr. Butler. COVID negative Lab Data Lab results reviewed: Yes I reviewed the patient's lab results Labs: Lab Results 08/20/23 08/20/23 Range/Units 11:05 11:25 WBC 12.2 H (4.0-11.0) 10^3/uL RBC 3.95 L (4.70-6.10) 10^6/uL Hgb 10.9 L (14.0-18.0) g/dL Hct 34.5 L (42.0-54.0) % MCV 87.3 (80.0-94.0) fL MCH 27.6 (25.9-34.0) pg MCHC 31.6 (29.9-35.2) g/dL RDW 19.2 H (11.0-15.0) % Plt Count 126 L (150-450) 10^3/uL MPV 10.7 (9.5-13.5) fL Neut % (Auto) 80.4 H (43.0-75.0) % Lymph % (Auto) 10.7 L (20.5-60.0) % [place] % (Auto) 6.7 (1.7-12.0) % Eos % (Auto) 1.4 (0.9-7.0) % Baso % (Auto) 0.2 (0.2-2.0) % Neut # (Auto) 9.8 H (1.4-6.5) 10^3/uL Lymph # (Auto) 1.3 (1.2-3.8) 10^3/uL [place] # (Auto) 0.8 (0.3-0.8) 10^3/uL Eos # (Auto) 0.2 (0.0-0.7) 10^3/uL Baso # (Auto) 0.0 (0.0-0.1) 10^3/uL Abs Immat Gran (auto) 0.07 H (0.00-0.03) 10^3/uL Imm/Tot Granulo (auto) 0.6 H (0.0-0.5) % Sodium 129 L (136-145) mmol/L Potassium 3.8 (3.5-5.1) mmol/L Chloride 93 L (98-107) mmol/L Carbon Dioxide 35.5 H (21.0-32.0) mmol/L Anion Gap 4.3 BUN 50.0 H (7.0-18.0) mg/dL Creatinine 1.80 H (0.70-1.30) mg/dL Est GFR ( Amer) 46 L (>=60) Est GFR (Non-Af Amer) 38 L (>=60) BUN/Creatinine Ratio 27.8 Glucose 306 H (74-106) mg/dL Calcium 8.1 L (8.5-10.1) mg/dL Troponin I High Sens 42.2 (4.0-76.1) pg/mL NT-Pro-B Natriuret Pep 9840.0 H* (<=900.0) pg/mL SARS-CoV-2 (PCR) Negative (NEGATIVE) ECG Data Attestation: I personally reviewed and interpreted this ECG as follows: (EKG interpretation. Ventricular paced rhythm at 73 beats a minute. left axis d eviation. QTC of 410.) Discharge Plan Discharge Chief Complaint: Shortness of Breath/Dyspnea Clinical Impression: Dyspnea Patient Disposition: Admitted as Observation Time of Disposition Decision: 12:31 Condition: Fair
--- NOTE | 2023-08-20 11:05 | PC.NURSE ---
Pulse ox 97-98% on room air, pt requesting O2 and 1L nc placed on pt for comfort
--- NOTE | 2023-08-20 11:06 | PC.NURSE ---
reports pt had 140mg Lasix last night, when called pt's [employer] I Engraver she was instructed to bring pt yo ER for admission, also informed that chest is full of fluid and labs are off. Pt has a coarse auditory breathing with a cough at times.
--- NOTE | 2023-08-20 11:11 | ECG_ITS ---
The [facility] Test Date: 2023-08-20 Pat Name: ADWOA PORTER Department: Room: - Gender: Male Patrol Mother: : 1955 Requested By: Order Number: [id number] Reading MD: MIESHA LOCKE Measurements Intervals [place] Rate: 73 P: -31499 W[place]: -20036 QRS: -80 QRSD: 128 T: 106 QT: 384 QTc: 410 Interpretive Statements 45703 Electronic ventricular pacemaker 9120 atypical ECG Compared to ECG 08/03/2023 12:26:39 Ventricular premature complex(es) no longer present Myocardial infarct finding no longer present Electronically Signed On 08-21-2023 7:04:31 EDT by MIESHA LOCKE
--- NOTE | 2023-08-20 11:11 | XR_ITS ---
The [address] [address] Patient Name: ADWOA PORTER MRN: [id number] date: 1955 Sex: M Assigned Patient Location: ER Current Patient Location: ER Accession/Order Number: [id number] Exam Date: 08/20/2023 11:32 Report Date: 08/20/2023 11:51 At the request of: NEGRO GALLARDO Procedure: XR chest 1V EXAM: XR chest 1V HISTORY: sob COMPARISON: 08/07/2023 TECHNIQUE: AP view of the chest. FINDINGS: The cardiomediastinal silhouette is enlarged. Stable left-sided cardiac pacemaker. Decreasing interstitial opacity. There is no pneumothorax. No pleural effusion is noted. The osseous structures are intact. XR/XR chest 1V IMPRESSION: Cardiomegaly with decreasing congestion and edema. Electronically authenticated by: IMTIAZ HEWITT Date: 08/20/2023 11:51
[2023-08-20 11:49] LABS: Basophils Percent Auto 0.2 % (0.2-2.0); Eosinophils Absolute Auto 0.2 10^3/uL (0.0-0.7); Eosinophils Percent Auto 1.4 % (0.9-7.0); Hematocrit 34.5 % (42.0-54.0); Hemoglobin 10.9 g/dL (14.0-18.0); Immature Granulocytes Abs Auto 0.07 10^3/uL (0.00-0.03); Immature Granulocytes Pct Auto 0.6 % (0.0-0.5); Lymphocytes Absolute Auto 1.3 10^3/uL (1.2-3.8); Lymphocytes Percent Auto 10.7 % (20.5-60.0); Mean Corpuscular HGB Conc 31.6 g/dL (29.9-35.2); Mean Corpuscular Hemoglobin 27.6 pg (25.9-34.0); Mean Corpuscular Volume 87.3 fL (80.0-94.0); Mean Platelet Volume 10.7 fL (9.5-13.5); Monocytes Absolute Auto 0.8 10^3/uL (0.3-0.8); Monocytes Percent Auto 6.7 % (1.7-12.0); Neutrophils Absolute Auto 9.8 10^3/uL (1.4-6.5); Neutrophils Percent Auto 80.4 % (43.0-75.0); Platelet Count 126 10^3/uL (150-450); Red Blood Count 3.95 10^6/uL (4.70-6.10); Red Cell Distribution Width 19.2 % (11.0-15.0); White Blood Count 12.2 10^3/uL (4.0-11.0)
[2023-08-20] MEDS: BUMETANIDE 1 MG/4 ML VIAL 2 MG IVP ×3 (11:49→21:38)
[2023-08-20 11:55] LABS: SARS-CoV-2 Ag NEGATIVE (NEGATIVE)
[2023-08-20 12:06] LABS: Anion Gap 4.3; BUN Creatinine Ratio 27.8; Calcium 8.1 mg/dL (8.5-10.1); Carbon Dioxide 35.5 mmol/L (21.0-32.0); Chloride 93 mmol/L (98-107); Estimated GFR (African America 46 (>=60); Estimated GFR (Non-African Ame 38 (>=60); Glucose 306 mg/dL (74-106); Potassium 3.8 mmol/L (3.5-5.1); Sodium 129 mmol/L (136-145); Troponin I High Sensitivity 42.2 pg/mL (4.0-76.1)
[2023-08-20] MEDS: IPRATROPIUM/ALBUTEROL SULFATE 3 ML AMPUL.NEB IH ×3 (12:08→21:47)
[2023-08-20 12:49] LABS: INR 2.82; Prothrombin Time 28.2 sec (9.0-11.6)
[2023-08-20] MEDS: BACITRACIN 0.9 GM PACKET 1 PACKET TOPICAL (13:00)
[2023-08-20 14:23] LABS: SARS-CoV-2 NAA NOT DETECTED (NOT DETECTE)
--- NOTE | 2023-08-20 14:31 | P.HP_ITS ---
Case discussed, chart reviewed. Agree with documentation, treatment plan as outlined above. Patient was not seen or examined personally by me. He presents for acute on chronic systolic HF, volume overload, mild COPD exacerbation and will be admitted for IV diuresis. Monitor I/Os, daily weights, monitor electrolytes. 2D ECHO reordered. Has chronic LE wounds for which he is following wound care H&P: HPI History of Present Illness Chief complaint: SHORTNESS OF BREATH Narrative: Date/Time of Exam: 08/20/23 8718 This is a 68-year-old male patient with a complicated past medical history as outlined below including severe HFrEF (LVEF 10-15%), COPD, uncontrolled DM2,, and neuropathy among others; who presented to the ED for the advice of his cardiology office due to persistent shortness of breath and abnormal outpatient labs. He was seen within the last week by his imaging scheduler and his Lasix was increased to 140 mg twice daily but he continues to complain of shortness of breath. Labs drawn at his outpatient cardiology appointment revealed a BNP of greater than 15,000 and K+ of 3.0. Work-up in the ED revealed persistently elevated BNP (9840), and hyponatremia (NA 129) likely due to hemodilution. Chest x-ray revealed cardiomegaly with vascular congestion with edema that is improved since August 07, but persists. He is being admitted to observation under the hospitalist service for acute decompensated heart failure with suspected underlying COPD exacerbation. At the time of my exam the patient was resting comfortably in bed. He experienced mild tachypnea with prolonged conversation but no significant increased work of breathing. He denies CP, N/V/D. He confirms chronic orthopnea and recent increased cough productive of minimal white sputum. Rales, rhonchi, and wheezing were all noted on exam. Heart tones are significantly diminished. In addition, the patient burned one of his fingers on the left hand when he touched a hot cummins within the last week. The patient did not experience pain with this burn due to severe neuropathy. This wound does not appear in fected but is not healing well with poor granulation and the majority of the nail missing. The wound clinic will be consulted to assist with wound care management of his chronic BLE wounds and this new burn injury. Review of Systems ROS Status of ROS 10 or more systems reviewed and unremarkable except as noted in history and below [facility] Medical History (Updated 08/20/23 @ 14:44 by Anna Guerrero NP) Acute urinary retention ?R33.8 - Other retention of urine (ICD-10) Anemia in chronic kidney disease ?N18.9 - Chronic kidney disease, unspecified (ICD-10) ?D63.1 - Anemia in chronic kidney disease (ICD-10) Ascites ?R18.8 - Other ascites (ICD-10) Benign essential hypertension ?I10 - Essential (primary) hypertension (ICD-10) CAD (coronary artery disease) ?I25.10 - Atherosclerotic heart disease of [place] coronary artery without angina pectoris (ICD-10) Cardiac defibrillator in place ?Z95.810 - Presence of automatic (implantable) cardiac defibrillator (ICD-10) Chronic HFrEF (heart failure with reduced ejection fraction) ?I50.22 - Chronic systolic (congestive) heart failure (ICD-10) Chronic kidney disease, stage 3a ?N18.31 - Chronic kidney disease, stage 3a (ICD-10) CKD (chronic kidney disease) stage 4, GFR 15-29 ml/min ?N18.4 - Chronic kidney disease, stage 4 (severe) (ICD-10) Closed head injury ?S09.90XA - Unspecified injury of head, initial encounter (ICD-10) COPD (chronic obstructive pulmonary disease) ?J44.9 - Chronic obstructive pulmonary disease, unspecified (ICD-10) Elevated INR ?R79.1 - Abnormal coagulation profile (ICD-10) Fluid retention ?R60.9 - Edema, unspecified (ICD-10) HLD (hyperlipidemia) ?E78.5 - Hyperlipidemia, unspecified (ICD-10) Hypothyroid ?E03.9 - Hypothyroidism, unspecified (ICD-10) Pacemaker ?Z95.0 - Presence of cardiac pacemaker (ICD-10) Paroxysmal atrial fibrillation ?I48.0 - Paroxysmal atrial fibrillation (ICD-10) Pneumonia ?J18.9 - Pneumonia, unspecified organism (ICD-10) Type 2 diabetes mellitus with hyperglycemia ?E11.65 - Type 2 diabetes mellitus with hyperglycemia (ICD-10) Surgical History (Updated 06/20/23 @ 13:44 by Susanna Gill) History of appendectomy ?Z90.49 - Acquired absence of other specified parts of digestive tract (ICD- 10) Family History Mother Family history of CHF (congestive heart failure) Brother Family history of cancer Social History Within the past year, how often did you have a drink containing alcohol: never Within the past year, how often did you have six or more drinks on one occasion: never Score interpretation: A score less than 4 is consistent with normal alcohol consumption. 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 Known occupational exposures/hazards: No Highest level of school completed/degree received: high school graduate Do you want help with school or training: No Are you now , , , , never or living with a partner: living with partner In a typical week, how many times do you talk on the telephone with family, friends, or neighbors: 3 or more times per week How often do you get together with friends or relatives: 3 or more times per week How often do you attend christian or latter day services: never Do you belong to any clubs or organizations such as christian groups unions, [employer] or athletic groups, or school groups: no Total score: 2 Score interpretation: A score of greater than or equal to 2 indicates the lowest level of social isolation. Little interest or pleasure in doing things: not at all Feeling down, depressed, or hopeless: not at all Feel stressed/tense/nervous/anxious/difficulty sleeping: not at all Due to disability, difficulty making decisions: No Do you think of yourself as: straight/heterosexual Gender Identity: male Meds Home Medications and Allergies Home Medications Medication Instructions Recorded Confirmed Type aspirin 81 mg tablet,delayed 81 mg PO DAILY 05/24/23 08/20/23 History release (Adult Low Dose Aspirin) atorvastatin 80 mg tablet 80 mg PO DAILY 05/24/23 08/20/23 History carvedilol 25 mg tablet 25 mg PO Q12H 05/24/23 08/20/23 History dapagliflozin propanediol 10 mg 10 mg PO DAILY 05/24/23 08/20/23 History tablet (Farxiga) digoxin 125 mcg (0.125 mg) tablet 0.125 mg PO QDAY 05/24/23 08/20/23 History furosemide 80 mg tablet 80 mg PO Q12H 05/24/23 08/20/23 History gabapentin 400 mg capsule 400 mg PO Q12H 05/24/23 08/20/23 History hydrocodone 5 mg-acetaminophen 325 1 tab PO Q8H PRN pain, moderate 05/24/23 08/20/23 History mg tablet isosorbide dinitrate 20 mg tablet 20 mg PO BIDWM 05/24/23 08/20/23 History levothyroxine 50 mcg tablet 50 mcg PO .ACB 05/24/23 08/20/23 History spironolactone 25 mg tablet 25 mg PO QAM 05/24/23 08/20/23 History amitriptyline 25 mg tablet 25 mg PO .COMPLEX 06/02/23 08/20/23 History cyanocobalamin (vitamin B-12) 1,000 mcg PO DAILY 06/02/23 08/20/23 History 1,000 mcg tablet,extended release hydralazine 50 mg tablet 50 mg PO Q8H 06/02/23 08/20/23 History metolazone 2.5 mg tablet 2.5 mg PO DAILY 06/02/23 08/20/23 History nitroglycerin 0.4 mg sublingual 0.4 mg sublingual Q5M PRN chest 06/02/23 08/20/23 History tablet pain warfarin 2.5 mg tablet 2.5 mg PO DAILY 06/02/23 08/20/23 History furosemide 20 mg tablet 20 mg PO BID 06/20/23 08/20/23 History potassium chloride 10 mEq 20 meq PO TID #90 tabs 06/21/23 08/20/23 Rx tablet,extended release(part/cryst) (Glory-Con M) Allergies Allergy/AdvReac Type Severity Reaction Status Date / Time No Known Drug Allergies Allergy Verified 07/31/23 13:47 Exam Constitutional Vital Signs, click to edit/add: Last Vital Signs Temp 97.5 F L 08/20/23 13:09 Pulse 86 08/20/23 13:09 Resp 22 08/20/23 13:09 BP 123/72 08/20/23 13:09 Pulse Ox 93 L 08/20/23 13:09 O2 Del Method Room Air 08/20/23 13:09 O2 Flow Rate 2 08/20/23 12:09 Common normals: no apparent distress, oriented x3, alert and well nourished General appearance: cooperative Orientation/consciousness: Yes awake HENMT Common normals: normocephalic, head/scalp atraumatic, hearing grossly normal bilaterally, external ears normal, external nose normal and moist oral mucous membranes Head and scalp: normocephalic and atraumatic Face and sinus: normal facial exam Nose: external nose normal External ear: external ears normal Eye Common normals: PERRL, EOMs intact bilaterally, conjunctivae normal and no scleral icterus General eye: normal appearance of both eyes Alignment: alignment normal Eyelid: eyelids normal Conjunctiva: conjunctiva(e) normal Pupil: PERRL Neck & C-Spine Common normals: full ROM, supple and no JVD Chest Common normals: inspection of chest normal Chest: symmetrical chest wall rise Respiratory Common normals: normal respiratory effort, no retractions and no use of accessory muscles Effort & inspection: able to speak in complete sentences Cardio Common normals: no JVD, regular rate, regular rhythm, no gallops, no clicks, no rub and peripheral pulses 2+ throughout Rate: regular rate Rhythm: regular rhythm Peripheral pulses: pulses 2+ throughout GI Common normals: Normal to inspection, nondistended, normoactive bowel sounds present, soft to palpation, non-tender, no hepatosplenomegaly, no masses and no bruits Palpation: soft and no hepatosplenomegaly Bladder/kidney exam: bladder normal to palpation Back & Pelvis Common normals: thoracic and lumbar spine normal to inspection Extremity Common normals: normal capillary refill General: normal exam except as noted; no clubbing Neuro Christina Coma Scale: GCS not evaluated Common normals: oriented x3, CN's II-XII intact bilaterally, moves all extremities, no focal motor deficits and no sensory deficits noted Sensorium/orientation: awake and alert Speech: speech normal Motor exam: strength 5/5 throughout Psych Common normals: mental status grossly normal, thought process normal, affect normal and activity/motor behavior normal Thought process: normal thought process Results Labs Labs: Short CBC 08/20/23 Range/Units 11:05 WBC 12.2 H (4.0-11.0) 10^3/uL Hgb 10.9 L (14.0-18.0) g/dL Hct 34.5 L (42.0-54.0) % Plt Count 126 L (150-450) 10^3/uL BMP 10/02/23 11:05 Sodium 129 L Potassium 3.8 Chloride 93 L Carbon Dioxide 35.5 H BUN 50.0 H Creatinine 1.80 H Glucose 306 H Calcium 8.1 L Pulse Oximetry Attestation: I have reviewed the pertinent pulse oximetry results. ECG Attestation: ?I have reviewed the pertinent ECG results. Interpretation: Interpretive Statements [id number] Electronic ventricular pacemaker 9120 atypical ECG No previous ECG available for comparison Imaging Chest x-ray: Attestation: I have reviewed the pertinent imaging results. Radiologist's impression: IMPRESSION: Cardiomegaly with decreasing congestion and edema. Assessment and Plan Assessment and Plan (1) Acute on chronic HFrEF (heart failure with reduced ejection fraction): Assessment and Plan: ACUTE * Place in observation * Acute decompensation in pt with known severe reduced LVEF (10-15% 05/25/23) * Decompensation persists despite increased Lasix dosing x 1 week to 140mg BID * Admission advised by outpatient cardiology d/t elevated BNP and persistent SOB * BNP 9,840 in ED today - repeat daily x 3 days to trend * Bumex 2mg IVP BID - hold home PO lasix for now * Low threshold to increase bolus dosing or convert to bumex gtt pending clinical course * Continue home metolazone and spironolactone * KCL 40 Meq po x 1 given in ED * potassium recently low at 3.0 on OP labs but WNL on ED labs today (3.8) * Hold home KCL 10 Meq for now * Consider addt'l high dose supplementation pending repeat labs in AM * Limited 2D Echo in AM - pt strongly requesting repeat Echo as he believes he's experienced a change in condition. * No clinical evidence of acute OR. * PE unlikely d/t therapeutic anticoagulation w/ warfarin * Daily weights, strict I&O * CBC, CMP daily - monitor renal fx and electrolytes closely (2) Acute exacerbation of chronic obstructive pulmonary disease: Assessment and Plan: ACUTE * Suspect underlying COPD exacerbation with clinical finding of wheezing and worsening productive cough * O2 as needed to keep sats above 90% - currently stable on RA * Breathing tx * Duonebs q6h scheduled * Alb nebs q4h PRN for SOB/wheezing * Pulmicort nebs BID scheduled * avoid high dose steroids if possible d/t uncontrolled hyperglycemia * Doxycycline 100mg PO BID for suspected underlying bronchitis. * Macrolide contraindicated d/t multiple drug interactions * Probiotic BID for c-diff prophylaxis (3) Type 2 diabetes mellitus with hyperglycemia: Assessment and Plan: CHRONIC * Continue home farxiga for now - low threshold to hold pending clinical course during acute hospitalization * ACHS glucometer checks * Low dose SS insulin for glucose correction * Consider adding basal insulin pending clinical course * A1C in AM * Consider DM2 educator consult pending result * Significant peripheral neuropathy 2/2 DM2 - high fall risk * Continue home gabapentin (4) Paroxysmal atrial fibrillation: Assessment and Plan: CHRONIC * Tele monitoring * HR currently well controlled * Continue home Coreg and Digoxin * Continue home warfarin for CVA prevention - INR therapeutic at 2.82 on admission * Daily INR x 3 (5) HLD (hyperlipidemia): Assessment and Plan: CHRONIC * Continue home statin (6) Hypothyroid: Assessment and Plan: CHRONIC * Continue home levothyroxine * check TSH in AM for therapeutic status (7) CAD (coronary artery disease): Assessment and Plan: CHRONIC * Continue home BB, Imdur, low dose daily ASA, PRN NTG (8) Benign essential hypertension: Assessment and Plan: CHRONIC * Continue home Imdur, Coreg, Hydralazine (9) Anemia in chronic kidney disease: Assessment and Plan: CHRONIC * Stable at baseline * CBC in AM to monitor (10) CKD (chronic kidney disease) stage 4, GFR 15-29 ml/min: Assessment and Plan: CHRONIC * Stable at baseline [id number] * CMP daily to monitor in setting of concurrent high dose diuretic therapy
[2023-08-20] MEDS: CARVEDILOL 25 MG TABLET PO ×2 (14:43→21:38)
[2023-08-20] MEDS: DOXYCYCLINE MONOHYDRATE 100 MG CAPSULE PO ×2 (14:43→21:37)
[2023-08-20] MEDS: DIGOXIN 125 MCG TABLET PO (14:43)
[2023-08-20] MEDS: GABAPENTIN 400 MG CAPSULE PO ×2 (14:43→21:38)
[2023-08-20] MEDS: ASPIRIN 81 MG TABLET.DR PO (14:43)
[2023-08-20] MEDS: SPIRONOLACTONE 25 MG TABLET PO (14:43)
--- NOTE | 2023-08-20 14:53 | CA_ITS ---
Patient: ADWOA PORTER Exam Date: 08/20/2023 : 1955 Gender:M Ordering : Anna Guerrero Admission #: [id number] Family : SHAIKH Sergio YU . Order #: [id number] CLICK HERE TO VIEW EXAM ECHOCARDIOGRAM REPORT PROCEDURE: CA ECHO LIMITED INDICATIONS: worsening SOB despite increased lasix COMPARISON: None. DESCRIPTION: Limited ECHOCARDIOGRAM Real-time transthoracic echocardiography with 2D and M-mode performed. QUALITY: Technical quality was good. LEFT VENTRICLE: Mild dilatation. Mild concentric left ventricular hypertrophy. LV EF: Global left ventricular systolic function is severely decreased. Visual estimation of left ventricular ejection fraction is 10-15% which is unchanged from previous exam of 05/25/23. Abnormal septal motion. LEFT ATRIUM: Severe dilatation. RIGHT ATRIUM: Severe dilatation. RIGHT VENTRICLE: Moderate dilatation. Decreased right ventricular systolic function. Pacer wire present. TRICUSPID VALVE: Normal mobility and thickness. MITRAL VALVE: Mildly thickened with normal mobility. AORTIC VALVE: Normal trileaflet appearance. Normal leaflet mobility. AORTIC ROOT: Normal diameter and appearance. PULMONIC VALVE: Normal thickness and mobility. PERICARDIUM: No evidence of pericardial effusion. IVC: Moderate dilatation. No collapse. CONCLUSION: 1. Global left ventricular systolic function is severely reduced; visually estimated ejection fraction is 10 to 15% 2. Severe biatrial enlargement 3. The right ventricle is dilated with reduced systolic function 4. A limited echocardiogram was performed Adult Echocardiography Procedure Report Left Ventricle LVEDD (3.7 - 5.6 cm): 5.92 cm LVESD (2.2 - 4.0 cm): 5.55 cm LVIVS thickness (0.6 - 1.2 cm): 1.15 cm LVPW thickness (0.5 - 1.0 cm): 1.22 cm LVOT Diameter 2.10 cm Left Atrium LA Volume Index (2D A2C): 60.83 ml/m2 Left Atrium Systolic Dimension: 4.75 cm Mitral Valve Right Ventricle RV Internal Diastolic Dimension: 6.57 cm Aorta AO Root Diam: 2.94 cm Aortic Valve Tricuspid Valve Pulmonic Valve Right Atrium Right Atrium Systolic Pressure: 191.03 ml, 191.03 ml Dictated by: Maki Meadows M.D. on 08/21/2023 at 12:48 Approved by: Maki Meadows M.D. on 08/21/2023 at 12:51
[2023-08-20] MEDS: ISOSORBIDE DINITRATE 20 MG TABLET PO (16:43)
[2023-08-20] MEDS: INSULIN ASPART 300 UNIT/3 ML PEN SUBQ ×2 (16:43→21:38)
[2023-08-20] MEDS: GUAIFENESIN 600 MG TAB.ER.12H PO ×2 (16:43→21:37)
[2023-08-20] MEDS: L. ACIDOPHILUS/L.BULGARICUS 1 PACKET GRAN.PACK PO (16:43)
[2023-08-20] MEDS: WARFARIN SODIUM 2.5 MG TABLET PO (16:48)
[2023-08-20] MEDS: ATORVASTATIN CALCIUM 40 MG TABLET 80 MG PO (21:38)
[2023-08-20] MEDS: AMITRIPTYLINE HCL 25 MG TABLET PO (21:38)
[2023-08-20] MEDS: BUDESONIDE 0.5 MG/2 ML AMPULE NEB IH (21:47)
[2023-08-21] VITALS (24 sets, daily range): BP systolic 112–130; BP diastolic 70–81; PULSE 80–89; RESP 16–20; TEMP 36.5–36.6; O2SAT 90–92
[2023-08-21] MEDS: IPRATROPIUM/ALBUTEROL SULFATE 3 ML AMPUL.NEB IH ×4 (05:23→20:19)
[2023-08-21] MEDS: LEVOTHYROXINE SODIUM 25 MCG TABLET 50 MCG PO (05:37)
[2023-08-21] MEDS: METOLAZONE 2.5 MG TABLET PO (05:37)
[2023-08-21] MEDS: HYDRALAZINE HCL 50 MG TABLET PO ×2 (05:37→22:04)
[2023-08-21 06:02] LABS: Basophils Percent Auto 0.2 % (0.2-2.0); Eosinophils Absolute Auto 0.2 10^3/uL (0.0-0.7); Eosinophils Percent Auto 1.7 % (0.9-7.0); Hematocrit 33.5 % (42.0-54.0); Hemoglobin 10.5 g/dL (14.0-18.0); Immature Granulocytes Abs Auto 0.08 10^3/uL (0.00-0.03); Immature Granulocytes Pct Auto 0.7 % (0.0-0.5); Lymphocytes Absolute Auto 1.5 10^3/uL (1.2-3.8); Lymphocytes Percent Auto 13.4 % (20.5-60.0); Mean Corpuscular HGB Conc 31.3 g/dL (29.9-35.2); Mean Corpuscular Hemoglobin 27.1 pg (25.9-34.0); Mean Corpuscular Volume 86.6 fL (80.0-94.0); Mean Platelet Volume 10.4 fL (9.5-13.5); Monocytes Absolute Auto 0.9 10^3/uL (0.3-0.8); Monocytes Percent Auto 7.9 % (1.7-12.0); Neutrophils Absolute Auto 8.7 10^3/uL (1.4-6.5); Neutrophils Percent Auto 76.1 % (43.0-75.0); Platelet Count 110 10^3/uL (150-450); Red Blood Count 3.87 10^6/uL (4.70-6.10); White Blood Count 11.4 10^3/uL (4.0-11.0)
--- NOTE | 2023-08-21 06:10 | XR_ITS ---
The [address] [address] Patient Name: ADWOA PORTER MRN: [id number] date: 1955 Sex: M Assigned Patient Location: [place] Current Patient Location: [place] Accession/Order Number: [id number] Exam Date: 08/21/2023 06:10 Report Date: 08/21/2023 07:20 At the request of: KIRAN BOO Procedure: XR chest 1V EXAM: XR chest 1V HISTORY: SOB, CHF exac surveillance COMPARISON: 08/20/2023 TECHNIQUE: AP portable erect FINDINGS: LUNGS: No significant pulmonary parenchymal abnormalities. VASCULATURE: Pulmonary vascular congestion, increased PLEURA: No pneumothorax, effusion, or pleural thickening. CARDIAC: No cardiomegaly MEDIASTINUM: No visible mass or adenopathy. Left pacemaker. Aortic atherosclerosis. BONES: No fracture or visible bone lesion. OTHER: Negative. XR/XR chest 1V IMPRESSION: Increase in pulmonary vascular congestion with underlying cardiomegaly Electronically authenticated by: BALBIR CABALLERO Date: 08/21/2023 07:20
[2023-08-21 06:15] LABS: Estimated Average Glucose 220 mg/dL; Glycohemoglobin A1C 9.3 % (4.5-6.2)
[2023-08-21 06:37] LABS: Thyroid Stimulating Hormone 4.631 uIU/mL (0.358-3.740)
[2023-08-21 06:38] LABS: Alanine Aminotransferase 26 U/L (16-63); Albumin Globulin Ratio 0.8; Alkaline Phosphatase 133 U/L (46-116); Aspartate Amino Transferase 17 U/L (15-37); BUN Creatinine Ratio 31.7; Bilirubin Total 1.7 mg/dL (0.2-1.0); Calcium 8.3 mg/dL (8.5-10.1); Carbon Dioxide 36.3 mmol/L (21.0-32.0); Chloride 90 mmol/L (98-107); Estimated GFR (African America 51 (>=60); Estimated GFR (Non-African Ame 42 (>=60); Globulin 3.9 g/dL; Glucose 220 mg/dL (74-106); Magnesium 2.1 mg/dL (1.8-2.4); Potassium 3.3 mmol/L (3.5-5.1); Sodium 128 mmol/L (136-145); Total Protein 6.9 g/dL (6.4-8.2)
[2023-08-21 07:12] LABS: INR 3.12
[2023-08-21] MEDS: L. ACIDOPHILUS/L.BULGARICUS 1 PACKET GRAN.PACK PO ×2 (08:18→17:12)
[2023-08-21] MEDS: ASPIRIN 81 MG TABLET.DR PO (08:19)
[2023-08-21] MEDS: GABAPENTIN 400 MG CAPSULE PO ×2 (08:19→21:03)
[2023-08-21] MEDS: ISOSORBIDE DINITRATE 20 MG TABLET PO ×2 (08:19→17:12)
[2023-08-21] MEDS: SPIRONOLACTONE 25 MG TABLET PO (08:19)
[2023-08-21] MEDS: CANAGLIFLOZIN 100 MG TABLET 300 MG PO (08:19)
[2023-08-21] MEDS: DIGOXIN 125 MCG TABLET PO (08:19)
[2023-08-21] MEDS: GUAIFENESIN 600 MG TAB.ER.12H PO ×2 (08:19→21:01)
[2023-08-21] MEDS: CARVEDILOL 25 MG TABLET PO ×2 (08:19→21:01)
[2023-08-21] MEDS: DOXYCYCLINE MONOHYDRATE 100 MG CAPSULE PO ×2 (08:20→21:01)
[2023-08-21] MEDS: BUMETANIDE 1 MG/4 ML VIAL 2 MG IVP ×2 (08:20→21:03)
[2023-08-21] MEDS: POTASSIUM CHLORIDE 10 MEQ ER TABLET 40 MEQ PO (08:20)
[2023-08-21] MEDS: INSULIN ASPART 300 UNIT/3 ML PEN SUBQ ×4 (08:21→21:54)
[2023-08-21] MEDS: BUDESONIDE 0.5 MG/2 ML AMPULE NEB IH ×2 (11:02→20:19)
--- NOTE | 2023-08-21 12:11 | CM.NOTE ---
Rounds made with Dr. Moore. Currently uses CPaP and has oxygen bleed in. No plan for discharge today.
--- NOTE | 2023-08-21 12:46 | W.PM.WC ---
Wound Consult Note Assessment and Plan (1) Acute on chronic HFrEF (heart failure with reduced ejection fraction): (2) Acute exacerbation of chronic obstructive pulmonary disease: (3) Type 2 diabetes mellitus with hyperglycemia: (4) Paroxysmal atrial fibrillation: (5) HLD (hyperlipidemia): (6) Hypothyroid: (7) CAD (coronary artery disease): (8) Benign essential hypertension: (9) Anemia in chronic kidney disease: (10) CKD (chronic kidney disease) stage 4, GFR 15-29 ml/min: Plan Patient seen for wound assessment. Patient known to outpatient wound clinic. Patient has not been to the outpatient clinic due to multiple hospital admissions. Patient with multiple abrasions/skin tears to BLE. All areas are irregular shaped and are on the anterior aspect of his shins. Superficial. Minimal drainage. Currently he has 4 open abrasions/skin tears to his RLE, one open area to LLE. Patient also has dark, flat scabbed area to left fifth toe. Right heel with large open blistered area with loose skin noted. Skin trimmed with suture kit as to keep skin from catching and ripping off traumatically. Measurements after trimming of loose skin is 5.2cm x 3.5cm x 0.1 cm. Patient with right great toe with scabbed area to base that is dry. This area has gone to bone in the past. Will await assessment from podiatry for this area. Patient with some bruising to upper back and buttocks patient reports from falling at home. Skin intact. All open areas dressed with xeroform gauze. Right heel off loaded with soft cushion boot. Instructed patient to keep pressure off this area as much as possible. Due to technical difficulties, no photos were able to be taken today of patient's ulcerations. Please call [phone] for any concerns or questions.
--- NOTE | 2023-08-21 14:40 | SWNOTE1 ---
Pt is current with [facility] and has a cpap at home that has bleed in of oxygen.
--- NOTE | 2023-08-21 15:37 | P.IMPN_ITS ---
Progress Note: A&P Assessment and Plan (1) Acute on chronic HFrEF (heart failure with reduced ejection fraction): Assessment and Plan: likely due to non compliance with dietary restrictions. Diuresing well on IV bumex C/w same Repeat 2D ECHO, daily weights, monitor I/Os. (2) Acute exacerbation of chronic obstructive pulmonary disease: Assessment and Plan: Mild COPD exacerbation. C/w inhaled bronchodilators, doxycycline. (3) Pseudohyponatremia: Assessment and Plan: due to volume overload and hyperglycemia. Monitor. C/w diuresis. (4) Type 2 diabetes mellitus with hyperglycemia: Assessment and Plan: Poorly controlled. He was not started on his basal insulin. Started on Lantus 55 q12. Home dose is 50 q12. (5) Paroxysmal atrial fibrillation: Assessment and Plan: In NSR. Coumadin for AC. On coreg, digoxin. (6) HLD (hyperlipidemia): Assessment and Plan: c/w statin (7) Hypothyroid: Assessment and Plan: C/w levothyroxineS (8) CAD (coronary artery disease): Assessment and Plan: Stable. C/w ASA, coreg, statin (9) Benign essential hypertension: Assessment and Plan: At goal. C/w home meds. (10) Anemia in chronic kidney disease: Assessment and Plan: Stable. Unchanged. (11) CKD (chronic kidney disease) stage 4, GFR 15-29 ml/min: Assessment and Plan: Cr more or less at baseline. Monitor while on bumex. (12) Chronic wound of extremity: Assessment and Plan: C/w wound care. Outpatient f.u Internal Medicine - PN: Subj Subjective Interval history: Seen and examined. Doing well. Still volume overload on exam. Adequate diuresis on IV bumex. Negative 4500 past 24 hours. Reports orthopnea, PND and feels that he is holding water. Exam Constitutional Vital Signs, click to edit/add: Last Vital Signs Temp 97.7 F 08/21/23 13:46 Pulse 87 08/21/23 14:00 Resp 18 08/21/23 13:46 BP 112/70 08/21/23 13:47 Pulse Ox 90 L 08/21/23 13:46 O2 Del Method Room Air 08/21/23 13:46 O2 Flow Rate 2 08/20/23 12:09 Documenting provider has reviewed patient's vital signs: yes Common normals: no apparent distress and oriented x3 General appearance: cooperative HENMT Common normals: normocephalic and head/scalp atraumatic Head and scalp: normocephalic and atraumatic Eye Common normals: conjunctivae normal and no scleral icterus Conjunctiva: conjunctiva(e) normal Respiratory Common normals: normal respiratory effort Effort & inspection: able to speak in complete sentences Auscultation: vesicular breath sounds Cardio Common normals: regular rate, S1 normal heart sound and S2 normal heart sound Rate: regular rate Heart sounds: S1 normal and S2 normal GI Common normals: Normal to inspection, nondistended, normoactive bowel sounds present, soft to palpation, non-tender and no hepatosplenomegaly Palpation: soft and no hepatosplenomegaly Extremity Other: chronic LE wounds, b/l, +2 LE edema Neuro Common normals: oriented x3, moves all extremities and no focal motor deficits Psych Common normals: mental status grossly normal, denies hallucinations, denies homicidal ideation and denies suicidal ideation Internal Medicine - PN: Obj Da Labs Labs: Laboratory Results - last 24 hr 08/21/23 05:23 WBC 11.4 H RBC 3.87 L Hgb 10.5 L Hct 33.5 L MCV 86.6 MCH 27.1 MCHC 31.3 RDW 19.0 H Plt Count 110 L MPV 10.4 Neut % (Auto) 76.1 H Lymph % (Auto) 13.4 L [place] % (Auto) 7.9 Eos % (Auto) 1.7 Baso % (Auto) 0.2 Neut # (Auto) 8.7 H Lymph # (Auto) 1.5 [place] # (Auto) 0.9 H Eos # (Auto) 0.2 Baso # (Auto) 0.0 Abs Immat Gran (auto) 0.08 H Imm/Tot Granulo (auto) 0.7 H PT 31.0 H INR 3.12 Sodium 128 L Potassium 3.3 L Chloride 90 L Carbon Dioxide 36.3 H Anion Gap 5.0 BUN 52.0 H Creatinine 1.64 H Est GFR ( Amer) 51 L Est GFR (Non-Af Amer) 42 L BUN/Creatinine Ratio 31.7 Glucose 220 H Estimat Average Glucose 220 Hemoglobin A1c 9.3 H Calcium 8.3 L Magnesium 2.1 Total Bilirubin 1.7 H AST 17 ALT 26 Alkaline Phosphatase 133 H NT-Pro-B Natriuret Pep 9208.0 H* Total Protein 6.9 Albumin 3.0 L Globulin 3.9 Albumin/Globulin Ratio 0.8 TSH 4.631 H
--- NOTE | 2023-08-21 16:23 | SWNOTE1 ---
ANDREW met with pt to discuss dc needs. Pt lives at home with his significant other. Pt has palliative care coming in and [facility]. Pt has home pap machine with oxygen bleed in. Pt would like to return home with HH and he does not want to go to a facility. Pt is open to having therapy coming back in with HH. ANDREW reviewed GREGORY form with pt, he voiced understanding, no questions at this time. Pt signed form, original given to pt and copy placed on chart.
[2023-08-21] MEDS: WARFARIN SODIUM 2.5 MG TABLET PO (17:12)
[2023-08-21] MEDS: INSULIN DETEMIR 300 UNIT/3 ML INSULN.PEN 55 UNIT SUBQ (17:14)
[2023-08-21] MEDS: ATORVASTATIN CALCIUM 40 MG TABLET 80 MG PO (21:01)
[2023-08-21] MEDS: AMITRIPTYLINE HCL 25 MG TABLET PO (21:51)
[2023-08-21 21:54] LABS: Glucometer 254 mg/dL (74-106)
[2023-08-22] VITALS (8 sets, daily range): BP systolic 114–129; BP diastolic 63–81; PULSE 84–88; RESP 18–20; TEMP 36.3; O2SAT 90–94
[2023-08-22 04:40] LABS: Basophils Absolute Auto 0.1 10^3/uL (0.0-0.1); Basophils Percent Auto 0.4 % (0.2-2.0); Eosinophils Absolute Auto 0.3 10^3/uL (0.0-0.7); Eosinophils Percent Auto 1.9 % (0.9-7.0); Hematocrit 38.7 % (42.0-54.0); Immature Granulocytes Abs Auto 0.07 10^3/uL (0.00-0.03); Immature Granulocytes Pct Auto 0.5 % (0.0-0.5); Lymphocytes Absolute Auto 2.1 10^3/uL (1.2-3.8); Mean Corpuscular Hemoglobin 27.3 pg (25.9-34.0); Mean Platelet Volume 10.8 fL (9.5-13.5); Monocytes Absolute Auto 1.1 10^3/uL (0.3-0.8); Monocytes Percent Auto 7.9 % (1.7-12.0); Neutrophils Absolute Auto 9.8 10^3/uL (1.4-6.5); Neutrophils Percent Auto 73.3 % (43.0-75.0); Platelet Count 152 10^3/uL (150-450); Red Cell Distribution Width 19.4 % (11.0-15.0); White Blood Count 13.4 10^3/uL (4.0-11.0)
[2023-08-22 04:47] LABS: INR 3.09; Prothrombin Time 30.7 sec (9.0-11.6)
[2023-08-22 05:10] LABS: Alanine Aminotransferase 32 U/L (16-63); Albumin Globulin Ratio 0.8; Albumin Level 3.6 g/dL (3.4-5.0); Alkaline Phosphatase 156 U/L (46-116); Anion Gap 7.2; Aspartate Amino Transferase 19 U/L (15-37); BUN Creatinine Ratio 30.3; Bilirubin Total 1.8 mg/dL (0.2-1.0); Calcium 9.3 mg/dL (8.5-10.1); Carbon Dioxide 40.1 mmol/L (21.0-32.0); Chloride 91 mmol/L (98-107); Estimated GFR (African America 46 (>=60); Estimated GFR (Non-African Ame 38 (>=60); Globulin 4.5 g/dL; Glucose 120 mg/dL (74-106); Magnesium 2.1 mg/dL (1.8-2.4); Potassium 4.3 mmol/L (3.5-5.1); Sodium 134 mmol/L (136-145); Total Protein 8.1 g/dL (6.4-8.2)
[2023-08-22] MEDS: IPRATROPIUM/ALBUTEROL SULFATE 3 ML AMPUL.NEB IH ×2 (05:19→11:15)
[2023-08-22] MEDS: LEVOTHYROXINE SODIUM 25 MCG TABLET 50 MCG PO (05:40)
[2023-08-22] MEDS: METOLAZONE 2.5 MG TABLET PO (05:40)
[2023-08-22 06:00] LABS: Glucometer 112 mg/dL (74-106)
[2023-08-22] MEDS: DOXYCYCLINE MONOHYDRATE 100 MG CAPSULE PO (08:50)
[2023-08-22] MEDS: ASPIRIN 81 MG TABLET.DR PO (08:50)
[2023-08-22] MEDS: DIGOXIN 125 MCG TABLET PO (08:50)
[2023-08-22] MEDS: GUAIFENESIN 600 MG TAB.ER.12H PO (08:50)
[2023-08-22] MEDS: GABAPENTIN 400 MG CAPSULE PO (08:50)
[2023-08-22] MEDS: CARVEDILOL 25 MG TABLET PO (08:50)
[2023-08-22] MEDS: ISOSORBIDE DINITRATE 20 MG TABLET PO (08:51)
[2023-08-22] MEDS: BUMETANIDE 1 MG/4 ML VIAL 2 MG IVP (08:51)
[2023-08-22] MEDS: L. ACIDOPHILUS/L.BULGARICUS 1 PACKET GRAN.PACK PO (08:51)
[2023-08-22] MEDS: SPIRONOLACTONE 25 MG TABLET PO (08:51)
--- NOTE | 2023-08-22 10:03 | PM.DS1 ---
DS: Providers Provider Date of admission: 08/20/23 12:30 Primary care physician: VINNIE STEWART Consults: 08/20/23 14:23 Consult to Wound Care Routine Consulting Provider: Salo Asencio Reason for consultation: Chronic BLE wounds, new L finger burn Has provider been notified: No Attending physician on discharge: Shaikh Teresa Discharging clinician: Shaikh Teresa Anticipated date of discharge: 08/22/23 DS: Diagnosis Discharge Diagnosis (1) Acute on chronic HFrEF (heart failure with reduced ejection fraction): Assessment and plan: Likely due to dietary indiscretion. Diuresed well with IV bumex 2 q12. Lost over 11 lbs, negative 8000 ml since admission. BNP [place] 9000 [place] [id number]. Will d/c on oral bumex 2 q12. Asked patient to check daily weight and maintain fluid restriction 1500/day, low salt diet 2D ECHO no sig changes noted. (2) Acute exacerbation of chronic obstructive pulmonary disease: Assessment and plan: Mild faint exp wheezing on exam. No resp distress. C/w home meds. (3) Pseudohyponatremia: Assessment and plan: due to volume overload. Resolved. (4) Type 2 diabetes mellitus with hyperglycemia: Assessment and plan: C/w home meds. On insulin/farxiga. (5) Paroxysmal atrial fibrillation: Assessment and plan: C/w coumadin, Dig, Coreg. (6) HLD (hyperlipidemia): Assessment and plan: C/w statin (7) Hypothyroid: Assessment and plan: C/w levothyroxine (8) CAD (coronary artery disease): Assessment and plan: Stable. Outpatient f/u (9) Benign essential hypertension: Assessment and plan: Stable. Monitor. (10) Anemia in chronic kidney disease: Assessment and plan: Stable. No change (11) CKD (chronic kidney disease) stage 4, GFR 15-29 ml/min: Assessment and plan: Stable. 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 On w/u, he was found to have acute on chronic systolic HF and was admitted for IV diuresis. Patient has had multiple re admissions for acute congestive HF and I suspect this is likely due to poor insight, non compliance with medications and especially dietary restrictions. Patient diuresed well on IV Bumex with good UO. He lost over 10 lbs with diuresis and is stable for discharge on oral Bumex 2 q12. Patient will need BMP repeated in one week to ensure his electrolyte and renal function is stable on bumex. Status at Discharge Functional status at discharge: independent ambulation Overall status at discharge: patient is back to baseline Time Spent with Patient Time attestation: Total time spent providing and/or coordinating discharge services: Time spent: greater than 30 minutes Exam Constitutional Vital Signs, click to edit/add: Last Vital Signs Temp 97.4 F L 08/22/23 05:36 Pulse 88 08/22/23 08:47 Resp 18 08/22/23 05:36 BP 129/63 08/22/23 08:47 Pulse Ox 90 L 08/22/23 05:36 O2 Del Method Room Air 08/22/23 05:36 O2 Flow Rate 2 08/20/23 12:09 FiO2 21 08/22/23 05:18 Documenting provider has reviewed patient's vital signs: yes Common normals: no apparent distress and oriented x3 General appearance: cooperative HENMT Common normals: normocephalic and head/scalp atraumatic Head and scalp: normocephalic and atraumatic Eye Common normals: conjunctivae normal and no scleral icterus Conjunctiva: conjunctiva(e) normal Respiratory Common normals: normal respiratory effort Effort & inspection: able to speak in complete sentences Auscultation: wheezes expiratory wheezes Cardio Common normals: regular rate, S1 normal heart sound and S2 normal heart sound Rate: regular rate Heart sounds: S1 normal and S2 normal GI Common normals: Normal to inspection, nondistended, normoactive bowel sounds present, soft to palpation, non-tender and no hepatosplenomegaly Palpation: soft and no hepatosplenomegaly Extremity Other: chronic LE wounds, b/l, +1 LE edema Neuro Common normals: oriented x3, moves all extremities and no focal motor deficits Psych Common normals: mental status grossly normal, denies hallucinations, denies homicidal ideation and denies suicidal ideation DS: Data Data Completed and Pending Labs on day of discharge: Labs from last 24 hours 08/22/23 08/22/23 08/21/23 05:58 04:10 21:53 WBC 13.4 H RBC 4.40 L Hgb 12.0 L Hct 38.7 L MCV 88.0 MCH 27.3 MCHC 31.0 RDW 19.4 H Plt Count 152 MPV 10.8 Neut % (Auto) 73.3 Lymph % (Auto) 16.0 L [place] % (Auto) 7.9 Eos % (Auto) 1.9 Baso % (Auto) 0.4 Neut # (Auto) 9.8 H Lymph # (Auto) 2.1 [place] # (Auto) 1.1 H Eos # (Auto) 0.3 Baso # (Auto) 0.1 Abs Immat Gran (auto) 0.07 H Imm/Tot Granulo (auto) 0.5 PT 30.7 H INR 3.09 Sodium 134 L Potassium 4.3 Chloride 91 L Carbon Dioxide 40.1 H Anion Gap 7.2 BUN 54.0 H Creatinine 1.78 H Est GFR ( Amer) 46 L Est GFR (Non-Af Amer) 38 L BUN/Creatinine Ratio 30.3 Glucose 120 H Calcium 9.3 Magnesium 2.1 Total Bilirubin 1.8 H AST 19 ALT 32 Alkaline Phosphatase 156 H NT-Pro-B Natriuret Pep 9172.0 H* Total Protein 8.1 Albumin 3.6 Globulin 4.5 Albumin/Globulin Ratio 0.8 POC Glucose 112 H 254 H Discharge Plan Discharge Disposition: Home, Self-Care Condition: Fair Discharge Medications: New bumetanide 2 mg tablet 2 mg PO BID Qty: 60 0RF Continued atorvastatin 80 mg tablet 80 mg PO DAILY carvedilol 25 mg tablet 25 mg PO Q12H Farxiga 10 mg tablet 10 mg PO DAILY aspirin [Adult Low Dose Aspirin] 81 mg tablet,delayed release (DR/EC) 81 mg PO DAILY hydrocodone-acetaminophen 5-325 mg tablet 1 tab PO Q8H PRN (Reason: pain, moderate) gabapentin 400 mg capsule 400 mg PO Q12H spironolactone 25 mg tablet 25 mg PO QAM levothyroxine 50 mcg tablet 50 mcg PO .ACB isosorbide dinitrate 20 mg tablet 20 mg PO BIDWM digoxin 125 mcg (0.125 mg) tablet 0.125 mg PO QDAY potassium chloride [Klor-Con M10] 10 mEq Tablet,Er Particles/Crystals 20 meq PO TID Qty: 90 11RF warfarin 2.5 mg tablet 2.5 mg PO DAILY Patient Comments: DIRECTED BY CLINIC nitroglycerin 0.4 mg tablet, sublingual 0.4 mg sublingual Q5M PRN (Reason: chest pain) hydralazine 50 mg tablet 50 mg PO Q8H Rx Instructions: PER RETAIL FILL HX - LAST FILLED 02/20/23 #270 FOR A 90 DAY SUPPLY cyanocobalamin (vitamin B-12) 1,000 mcg tablet extended release 1,000 mcg PO DAILY amitriptyline 25 mg tablet 25 mg PO .COMPLEX PRN (Reason: sleep) Rx Instructions: 25 mg orally nightly; PER RETAIL FILL HX - LAST FILLED 01/30/23 #90 FOR A 90 DAY SUPPLY PRN; metolazone 2.5 mg Tablet 2.5 mg PO DAILY Discontinued furosemide 80 mg tablet 80 mg PO Q12H Patient Comments: takes with 20mg for total of 100mg twice daily furosemide 20 mg tablet 20 mg PO BID Patient Comments: takes with 80mg tab twice a day for total of 100mg bid Activity: increase activity as tolerated Diet: low salt diet Diet Detail: Fluid restriction less than 1500ml/day Patient Instructions: Bumetanide (By mouth) (Bumex), Heart Failure (DC) Forms: Portal Instructions Referrals: VINNIE STEWART [Primary Care Provider] - 1 week Follow Up Appointments: Follow up appt. with Dr. Stewart on Aug.27 @ 3:30pm Office #: [phone]
--- NOTE | 2023-08-22 10:04 | CM.NOTE ---
Rounds made with Dr. Moore. Dr. Moore explained results of Echo and medication change from Lasix to Bumex. [facility]
[2023-08-22] MEDS: BUDESONIDE 0.5 MG/2 ML AMPULE NEB IH (11:15)
--- NOTE | 2023-08-22 11:48 | SWNOTE1 ---
ANDREW sent updates and discharge orders to Abdi MCCLENDON
--- NOTE | 2023-08-24 11:29 | CM.DCFOLLOWU ---
First attempted discharge follow up phone call, no answer.
--- NOTE | 2023-08-28 15:31 | CM.DCFOLLOWU ---
Person spoke with: Rey How are you feeling? Still feeling bad. I see the doctor in the morning How is your pain? No pain Did you understand your discharge instructions? Yes Do you have any questions about your discharge instructions? No Were you given any prescriptions at discharge? No Were you able to get your prescriptions filled? N/A Do you understand how to take your medications as ordered? yes Do you have any questions about your follow up appointment and do you plan to keep your follow up appointment? Tomorrow for primary care and cardiology Is there anything else that you would like to discuss? No Questions/Comments/Concerns/Other:
== END 2023-08-22 11:40 | disposition home health service (06) ==
LOC: ER 12:31 → MS 12:32
PROVIDERS: Nurse Practitioner; Admitting Provider Internal Medicine; Emergency Provider Emergency Medicine; PCP Family Medicine; Visit Provider Internal Medicine
DX: I13.0 Hypertensive heart and chronic kidney disease with heart failure and stage 1 through stage 4 chronic kidney disease, or unspecified chronic kidney disease (principal); I50.23 Acute on chronic systolic (congestive) heart failure; J44.1 Chronic obstructive pulmonary disease with (acute) exacerbation; I48.0 Paroxysmal atrial fibrillation; E11.65 Type 2 diabetes mellitus with hyperglycemia; R53.1 Weakness; E78.5 Hyperlipidemia, unspecified; E03.9 Hypothyroidism, unspecified; E11.22 Type 2 diabetes mellitus with diabetic chronic kidney disease; N18.4 Chronic kidney disease, stage 4 (severe); D72.829 Elevated white blood cell count, unspecified; I25.10 Atherosclerotic heart disease of native coronary artery without angina pectoris; Z95.0 Presence of cardiac pacemaker; D63.1 Anemia in chronic kidney disease; S80.812A Abrasion, left lower leg, initial encounter; S80.811A Abrasion, right lower leg, initial encounter; S81.812A Laceration without foreign body, left lower leg, initial encounter; S81.811A Laceration without foreign body, right lower leg, initial encounter; S90.821A Blister (nonthermal), right foot, initial encounter; S20.229A Contusion of unspecified back wall of thorax, initial encounter; S30.0XXA Contusion of lower back and pelvis, initial encounter; T23.022A Burn of unspecified degree of single left finger (nail) except thumb, initial encounter; G62.9 Polyneuropathy, unspecified; Z87.891 Personal history of nicotine dependence; Z79.4 Long term (current) use of insulin; Z99.81 Dependence on supplemental oxygen; Z79.82 Long term (current) use of aspirin; Z79.899 Other long term (current) drug therapy; Z79.01 Long term (current) use of anticoagulants; Z87.01 Personal history of pneumonia (recurrent); Z90.49 Acquired absence of other specified parts of digestive tract; Z79.890 Hormone replacement therapy; Z66 Do not resuscitate; Z20.822 Contact with and (suspected) exposure to COVID-19; W19.XXXA Unspecified fall, initial encounter; X08.8XXA Exposure to other specified smoke, fire and flames, initial encounter
CPT/HCPCS: 36415; 71045; 80048; 80053; 81001; 82948; 83036; 83605; 83735; 83880; 84443; 84484; 85025; 85610; 87040; 87635; 87811; 93005; 93308; 94640; 94761; 96374; 96376; 99285; G0378; U0003

== ENCOUNTER 2023-08-22 23:05 | Emergency (ER) | payer MEDICARE, SELFPAY ==
[2023-08-22] VITALS (8 sets, daily range): BP systolic 117–129; BP diastolic 66–85; PULSE 85–90; RESP 16–27; TEMP 37; O2SAT 95–98; BMI 28.8
[2023-08-22 23:19] LABS: Glucometer 381 mg/dL (74-106)
[2023-08-23] VITALS (18 sets, daily range): BP systolic 126–139; BP diastolic 63–102; PULSE 85–90; RESP 17–34; O2SAT 95–98
--- NOTE | 2023-08-23 00:02 | PC.NURSE ---
pt brought in by ems. pt was recently admitted for CHF exacerbation and was taken off of lasix and placed on bumex. pt was discharged this morning around 11am. pt has hx of chf, diabetes, and copd. pt wears 3 liters nasal cannula at all times for copd. pt lives at home with his girlfriend and was sent over for weakness, confusion, and elevated blood glucose in the 500s. girlfriend states he didn't take any insulin because ems told them not too. pt did take all of his morning medications but didn't take his night time doses yet. on arrival patients blood glucose is 387 and answers all questions appropriately. pt states he doesn't know why he is at the hospital and wants to go home. pt denies n/v/d. pt denies sob or chest pain. when girlfriend arrived she states patients mental status is almost back to baseline. pt normally gets around with a walker at home. pt was incontinent of urine during transport and girlfriend states that when patient takes his diuretics that it happen sometimes and she thinks it did today d/t weakness. pts soiled clothes removed and cleaned up with soap and water. pt does have tremors on arrival which patient has had for the past 2 weeks but girlfriend says they are worse than normal. pt does have a pacemaker. pt has chronic wounds to bilateral lower extremities that are dressed on arrival. 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 pt does have pointer finger on left hand dressed on arrival d/t a burn that the patient sustained last week. pt does see the wound clinic in [place] once every 2 weeks.
--- NOTE | 2023-08-23 00:04 | XR_ITS ---
The [address] [address] Patient Name: ADWOA PORTER MRN: [id number] date: 1955 Sex: M Assigned Patient Location: ER Current Patient Location: ER Accession/Order Number: [id number] Exam Date: 08/23/2023 00:15 Report Date: 08/23/2023 00:36 At the request of: BRYCE MARKER Procedure: XR chest 1V EXAMINATION:XR chest 1V INDICATION:CHF COMPARISON:08/21/2023 TECHNIQUE:A single frontal view of the chest is submitted. FINDINGS: The cardiac silhouette is enlarged but stable. A left-sided pacemaker is in place. There is a degree of interstitial edema in the lungs not significantly changed from the prior exam. Faint densities in the right lower lung field likely sequela to pulmonary edema. There is no costophrenic angle blunting. XR/XR chest 1V IMPRESSION: Mild pulmonary edema in the chest. Electronically authenticated by: VINCENZO HAND Date: 08/23/2023 00:36
[2023-08-23] MEDS: INSULIN REGULAR 300 UNITS/3 ML 8 UNIT SUBQ (00:32)
[2023-08-23 00:33] LABS: Glucometer 351 mg/dL (74-106)
[2023-08-23 00:38] LABS: Basophils Absolute Auto 0.1 10^3/uL (0.0-0.1); Basophils Percent Auto 0.3 % (0.2-2.0); Eosinophils Absolute Auto 0.1 10^3/uL (0.0-0.7); Eosinophils Percent Auto 0.7 % (0.9-7.0); Hematocrit 36.2 % (42.0-54.0); Hemoglobin 11.4 g/dL (14.0-18.0); Immature Granulocytes Abs Auto 0.09 10^3/uL (0.00-0.03); Immature Granulocytes Pct Auto 0.5 % (0.0-0.5); Lymphocytes Absolute Auto 1.5 10^3/uL (1.2-3.8); Lymphocytes Percent Auto 8.6 % (20.5-60.0); Mean Corpuscular HGB Conc 31.5 g/dL (29.9-35.2); Mean Corpuscular Hemoglobin 27.2 pg (25.9-34.0); Mean Corpuscular Volume 86.4 fL (80.0-94.0); Mean Platelet Volume 10.7 fL (9.5-13.5); Monocytes Absolute Auto 1.2 10^3/uL (0.3-0.8); Monocytes Percent Auto 6.7 % (1.7-12.0); Neutrophils Absolute Auto 14.6 10^3/uL (1.4-6.5); Neutrophils Percent Auto 83.2 % (43.0-75.0); Platelet Count 141 10^3/uL (150-450); Red Blood Count 4.19 10^6/uL (4.70-6.10); Red Cell Distribution Width 19.1 % (11.0-15.0); White Blood Count 17.5 10^3/uL (4.0-11.0)
--- NOTE | 2023-08-23 01:01 | ED_ITS ---
HPI - General Adult General Chief complaint: Weakness Stated complaint: WEAKNESS Time Seen by Provider: 08/22/23 23:55 Source: patient Mode of arrival: ambulance Limitations: no limitations History of Present Illness HPI narrative: This 68-year-old male with a history of coronary artery disease, diabetes, congestive heart failure and COPD, who is a former smoker and who was discharged home from this facility earlier today after being admitted for fluid overload and was diuresed and sent home with new diuretics (Bumex) and close follow-up with wound care and cardiology is brought back to the emergency department by EMS from home. According to the paramedics the patient's girlfriend states that she cannot care for him at home. The patient's girlfriend is with him in emergency department and states that she called the squad because his sugar was over 500. I asked her if she gave him any insulin tonight and she stated no she does not give him insulin, he gives himself his insulin. He states he did give himself his insulin this evening. Upon arrival his sugar is elevated in the 300s but not at 500. The patient's girlfriend states that he cannot get around at home because he is weak after spending 2 days in the hospital. He is in wound care for her chronic lower extremity wounds. He has not had a fever. He denies any chest pain. He does have a history of chronic obstructive pulmonary disease and congestive heart failure and is on home oxygen at 3L. The patient and his girlfriend are both in agreement that he does not want to go to rehab. The patient's girlfriend's expectation is that he will be re-admitted. He was referred to the emergency department on August 20 from his director of operations home health office after he had an elevated BNP and was found to be in fluid overload. He was diuresed well in the hospital and felt safe and deemed well enough for discharge. Related Data Home Medications Medication Instructions Recorded Confirmed aspirin 81 mg tablet,delayed 81 mg PO DAILY 05/24/23 08/20/23 release (Adult Low Dose Aspirin) atorvastatin 80 mg tablet 80 mg PO DAILY 05/24/23 08/20/23 carvedilol 25 mg tablet 25 mg PO Q12H 05/24/23 08/20/23 dapagliflozin propanediol 10 mg 10 mg PO DAILY 05/24/23 08/20/23 tablet (Farxiga) digoxin 125 mcg (0.125 mg) tablet 0.125 mg PO QDAY 05/24/23 08/20/23 gabapentin 400 mg capsule 400 mg PO Q12H 05/24/23 08/20/23 hydrocodone 5 mg-acetaminophen 325 1 tab PO Q8H PRN pain, moderate 05/24/23 08/20/23 mg tablet isosorbide dinitrate 20 mg tablet 20 mg PO BIDWM 05/24/23 08/20/23 levothyroxine 50 mcg tablet 50 mcg PO .ACB 05/24/23 08/20/23 spironolactone 25 mg tablet 25 mg PO QAM 05/24/23 08/20/23 amitriptyline 25 mg tablet 25 mg PO .COMPLEX PRN sleep 06/02/23 08/21/23 cyanocobalamin (vitamin B-12) 1,000 mcg PO DAILY 06/02/23 08/20/23 1,000 mcg tablet,extended release hydralazine 50 mg tablet 50 mg PO Q8H 06/02/23 08/20/23 metolazone 2.5 mg tablet 2.5 mg PO DAILY 06/02/23 08/20/23 nitroglycerin 0.4 mg sublingual 0.4 mg sublingual Q5M PRN chest 06/02/23 08/20/23 tablet pain warfarin 2.5 mg tablet 2.5 mg PO DAILY 06/02/23 08/20/23 Previous Rx's Medication Instructions Recorded potassium chloride 10 mEq 20 meq PO TID #90 tabs 06/21/23 tablet,extended release(part/cryst) (Klor-Con M) bumetanide 2 mg tablet 2 mg PO BID #60 tabs 08/22/23 Allergies Allergy/AdvReac Type Severity Reaction Status Date / Time No Known Drug Allergies Allergy Verified 07/31/23 13:47 Review of Systems ROS Status of ROS 10 or more systems reviewed and unremarkable except as noted in history and below [facility] Medical History (Updated 08/23/23 @ 02:46 by Kelly Rogers MD) Acute urinary retention ?R33.8 - Other retention of urine (ICD-10) Anemia in chronic kidney disease ?N18.9 - Chronic kidney disease, unspecified (ICD-10) ?D63.1 - Anemia in chronic kidney disease (ICD-10) Ascites ?R18.8 - Other ascites (ICD-10) Benign essential hypertension ?I10 - Essential (primary) hypertension (ICD-10) CAD (coronary artery disease) ?I25.10 - Atherosclerotic heart disease of [place] coronary artery without angina pectoris (ICD-10) Cardiac defibrillator in place ?Z95.810 - Presence of automatic (implantable) cardiac defibrillator (ICD-10) Chronic HFrEF (heart failure with reduced ejection fraction) ?I50.22 - Chronic systolic (congestive) heart failure (ICD-10) Chronic kidney disease, stage 3a ?N18.31 - Chronic kidney disease, stage 3a (ICD-10) Chronic wound of extremity CKD (chronic kidney disease) stage 4, GFR 15-29 ml/min ?N18.4 - Chronic kidney disease, stage 4 (severe) (ICD-10) Closed head injury ?S09.90XA - Unspecified injury of head, initial encounter (ICD-10) COPD (chronic obstructive pulmonary disease) ?J44.9 - Chronic obstructive pulmonary disease, unspecified (ICD-10) Elevated INR ?R79.1 - Abnormal coagulation profile (ICD-10) Fluid retention ?R60.9 - Edema, unspecified (ICD-10) HLD (hyperlipidemia) ?E78.5 - Hyperlipidemia, unspecified (ICD-10) Hypothyroid ?E03.9 - Hypothyroidism, unspecified (ICD-10) Pacemaker ?Z95.0 - Presence of cardiac pacemaker (ICD-10) Paroxysmal atrial fibrillation ?I48.0 - Paroxysmal atrial fibrillation (ICD-10) Pneumonia ?J18.9 - Pneumonia, unspecified organism (ICD-10) Type 2 diabetes mellitus with hyperglycemia ?E11.65 - Type 2 diabetes mellitus with hyperglycemia (ICD-10) Surgical History (Updated 06/20/23 @ 13:44 by Susanna Gill) History of appendectomy ?Z90.49 - Acquired absence of other specified parts of digestive tract (ICD- 10) Family History Mother Family history of CHF (congestive heart failure) Brother Family history of cancer Social History Within the past year, how often did you have a drink containing alcohol: never Within the past year, how often did you have six or more drinks on one occasion: never Score interpretation: A score less than 4 is consistent with normal alcohol consumption. 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 Known occupational exposures/hazards: No Highest level of school completed/degree received: high school graduate Do you want help with school or training: No Are you now , , , , never or living with a partner: living with partner In a typical week, how many times do you talk on the telephone with family, frie nds, or neighbors: 3 or more times per week How often do you get together with friends or relatives: 3 or more times per week How often do you attend anglican or congregation services: never Do you belong to any clubs or organizations such as anglican groups unions, fraternal or athletic groups, or school groups: no Total score: 2 Score interpretation: A score of greater than or equal to 2 indicates the lowest level of social isolation. Little interest or pleasure in doing things: not at all Feeling down, depressed, or hopeless: not at all Feel stressed/tense/nervous/anxious/difficulty sleeping: not at all Due to disability, difficulty making decisions: No Do you think of yourself as: straight/heterosexual Gender Identity: male Exam Narrative Exam Narrative: Nurses note and vital signs reviewed and patient is not hypoxic. He is on home oxygen General: chronically ill-appearing overweight male, he has a high- pitched voice, no respiratory distress, he is interacting appropriately with his girlfriend Skin: Scattered ecchymosis on the forearms and legs. Lower extremities are wrapped in Kerlix from wound care, dressings were taken down and there is no drainage, cellulitis or sign of active infection. Head: Normocephalic, atraumatic HEENT: mucus membranes are moist and pink Eye: Normal conjunctiva, no drainage, EOMI. PERRL, No scleral icterus Ears, Nose, Mouth, and Throat: oral mucosa is moist. Oral thrush Cardiovascular: Regular Rate and Rhythm Paced rhythm, Pulses are brisk and equal bilaterally Respiratory: Patient is in no distress, no accessory muscle use, Lungs are diminished with faint rales at the bases Back: non-tender, no CVA tenderness bilaterally to percussion. Ecchymosis noted on the right flank. GI: Obese, soft, nondistended, scattered areas of ecchymosis on the abdominal wall status post recent fall and Coumadin use, perineum is normal in appearance without any skin breakdown, decubitus ulcer or signs of necrotizing fascitis Musculoskeletal: Multiple open and dried sores on the patient's feet, left hallux has been resected, dried scab and ulcer on right great toe Neurological: A&O x4, normal speech, No focal deficits Psychiatric: Cooperative Constitutional Vital Signs, click to edit/add: Last Vital Signs Temp 98.6 F 08/22/23 23:07 Pulse 87 08/23/23 02:00 Resp 25 H 08/23/23 02:00 BP 129/76 08/23/23 02:00 Pulse Ox 97 08/23/23 01:50 Course Vital Signs Vital signs: Vital Signs Temperature 98.6 F 08/22/23 23:07 Pulse Rate 85 08/22/23 23:07 Respiratory Rate 16 08/22/23 23:07 Blood Pressure 117/66 08/22/23 23:07 Pulse Oximetry 96 08/22/23 23:07 Temperature 98.6 F 08/22/23 23:07 Pulse Rate 87 08/23/23 02:00 Respiratory Rate 25 H 08/23/23 02:00 Blood Pressure 129/76 08/23/23 02:00 Pulse Oximetry 97 08/23/23 01:50 Medical Decision Making MDM Narrative Medical decision making narrative: This is a 8-year-old male with multiple medical problems including coronary artery disease, congestive heart failure, chronic obstructive pulmonary disease, diabetes, hypertension, chronic lower extremity wounds who is being managed by [facility] and was admitted to this facility on August 20 for fluid overload/congestive heart failure and he was diuresed over the past several days and deemed stable for discharge was returned to the emergency department this evening for evaluation of generalized weakness and elevated glucose. The patient lives with his girlfriend. She has been helping manage his medical problems for the past 13 years. She states she feels that he is weak after spending 2 days in the hospital and is having trouble getting around at home. He has not had any falls since being discharged. He denies any fever. He denies any chest pain or increasing shortness of breath. His pulse ox is 97 percent on 3 L nasal cannula which is his baseline. An EKG done upon arrival was a paced rhythm at 85 beats for minute. An IV was placed and routine labs are ordered. He has an elevated white count at 17.5. I reviewed all of the medications that he received in the hospital. I did find that he had been on doxycycline but did not find any note indicating that he was being treated for any kind of infection. I did not find that he was given any steroids for chronic obstructive pulmonary disease. We searched for a source of any infection. His urine is clear. His chest x-ray did not show any acute pulmonary infiltrates besides some pulmonary vascular congestion similar to previous chest x-ray. He was not coughing. No abdominal pain or diarrhea. We took down the dressings on his legs and feet to look for a diabetic foot ulcer. He does have multiple chronic appearing ulcers that are being cared for by wound care with there is no sign of any acute infection. He has normal troponin. His BNP is 9069 which is lower than it was when he was discharged. Blood cultures are pending. Creatinine is stable for him. Lactic acid is normal. I considered that this could be a stress response and the patient agrees with that saying that he does 'feel stressed .... He had no skin breakdown on his buttocks, there is no sign of any infection in his perineum. The results of the studies and my findings were discussed with the patient and his girlfriend. Although she called EMS because she wanted him admitted she ultimately thought it best to take him home. He was in agreement with this plan. He has follow-up later today with his director of operations home health. No empiric antibiotic therapy was instituted. He was encouraged to return to emergency department for fever, worsening weakness or any concerns. He was medicated in emergency department with 8 units of subcutaneous insulin for his hyperglycemia and prior to discharge his hyperglycemia had improved From 381-299. Medical Records Medical records narrative: The [address] [address] XRay Report Signed Patient: ADWOA PORTER MR#: [id number] : 1955 Acct:[id number] Age/Sex: 68 / M ADM Date: 08/22/23 Loc: ER Attending Dr: Ordering Physician: Kelly Rogers Date of Service: 08/23/23 Procedure(s): XR chest 1V Accession Number(s): [id number] cc: VINNIE STEWART ; Kelly Marker~ The [address] [address] Patient Name: ADWOA PORTER MRN: [id number] date: 1955 Sex: M Assigned Patient Location: ER Current Patient Location: ER Accession/Order Number: [id number] Exam Date: 08/23/2023 00:15 Report Date: 08/23/2023 00:36 At the request of: KELLY MARKER Procedure: XR chest 1V EXAMINATION:XR chest 1V INDICATION:CHF COMPARISON:08/21/2023 TECHNIQUE:A single frontal view of the chest is submitted. FINDINGS: The cardiac silhouette is enlarged but stable. A left-sided pacemaker is in place. There is a degree of interstitial edema in the lungs not significantly changed from the prior exam. Faint densities in the right lower lung field likely sequela to pulmonary edema. There is no costophrenic angle blunting. XR/XR chest 1V IMPRESSION: Mild pulmonary edema in the chest. Lab Data Labs: Lab Results 08/22/23 08/22/23 08/22/23 Range/Units 23:18 23:20 23:32 WBC 17.5 H (4.0-11.0) 10^3/uL RBC 4.19 L (4.70-6.10) 10^6/uL Hgb 11.4 L (14.0-18.0) g/dL Hct 36.2 L (42.0-54.0) % MCV 86.4 (80.0-94.0) fL MCH 27.2 (25.9-34.0) pg MCHC 31.5 (29.9-35.2) g/dL RDW 19.1 H (11.0-15.0) % Plt Count 141 L (150-450) 10^3/uL MPV 10.7 (9.5-13.5) fL Neut % (Auto) 83.2 H (43.0-75.0) % Lymph % (Auto) 8.6 L (20.5-60.0) % [place] % (Auto) 6.7 (1.7-12.0) % Eos % (Auto) 0.7 L (0.9-7.0) % Baso % (Auto) 0.3 (0.2-2.0) % Neut # (Auto) 14.6 H (1.4-6.5) 10^3/uL Lymph # (Auto) 1.5 (1.2-3.8) 10^3/uL [place] # (Auto) 1.2 H (0.3-0.8) 10^3/uL Eos # (Auto) 0.1 (0.0-0.7) 10^3/uL Baso # (Auto) 0.1 (0.0-0.1) 10^3/uL Abs Immat Gran (auto) 0.09 H (0.00-0.03) 10^3/uL Imm/Tot Granulo (auto) 0.5 (0.0-0.5) % PT 25.0 H (9.0-11.6) sec INR 2.48 Sodium 127 L (136-145) mmol/L Potassium 4.0 (3.5-5.1) mmol/L Chloride 88 L (98-107) mmol/L Carbon Dioxide 34.1 H (21.0-32.0) mmol/L Anion Gap 8.9 BUN 53.0 H (7.0-18.0) mg/dL Creatinine 1.99 H (0.70-1.30) mg/dL Est GFR ( Amer) 41 L (>=60) Est GFR (Non-Af Amer) 33 L (>=60) BUN/Creatinine Ratio 26.6 Glucose 370 H (74-106) mg/dL Lactate 1.9 (0.4-2.0) mmol/L Calcium 8.8 (8.5-10.1) mg/dL Total Bilirubin 1.4 H (0.2-1.0) mg/dL AST 12 L (15-37) U/L ALT 20 (16-63) U/L Alkaline Phosphatase 161 H (46-116) U/L Troponin I High Sens 47.7 (4.0-76.1) pg/mL NT-Pro-B Natriuret Pep 9069.0 H* (<=900.0) pg/mL Total Protein 7.8 (6.4-8.2) g/dL Albumin 3.4 (3.4-5.0) g/dL Globulin 4.4 g/dL Albumin/Globulin Ratio 0.8 Urine Color (YELLOW) Urine Clarity (CLEAR) Urine pH (5.0-9.0) Ur Specific [place] (1.005-1.025) Urine Protein (NEG/TRACE) mg/dL Urine Glucose (UA) (NEGATIVE) mg/dL Urine Ketones (NEGATIVE) mg/dL Urine Occult Blood (NEGATIVE) Urine Nitrite (NEGATIVE) Urine Bilirubin (NEGATIVE) Urine Urobilinogen (0.2-1.0) EU/dL Ur Leukocyte Esterase (NEGATIVE) Urine RBC (0-2) #/HPF Urine WBC (NONE SEEN) #/HPF Ur Squamous Epith Cells (NONE/RARE) #/LPF Urine Crystals (None Seen) #/HPF Urine Bacteria (NONE SEEN) #/HPF Urine Casts (NONE SEEN) #/LPF Urine Mucus (NONE SEEN) POC Glucose 381 H (74-106) mg/dL 08/23/23 08/23/23 08/23/23 Range/Units 00:00 00:32 01:21 WBC (4.0-11.0) 10^3/uL RBC (4.70-6.10) 10^6/uL Hgb (14.0-18.0) g/dL Hct (42.0-54.0) % MCV (80.0-94.0) fL MCH (25.9-34.0) pg MCHC (29.9-35.2) g/dL RDW (11.0-15.0) % Plt Count (150-450) 10^3/uL MPV (9.5-13.5) fL Neut % (Auto) (43.0-75.0) % Lymph % (Auto) (20.5-60.0) % [place] % (Auto) (1.7-12.0) % Eos % (Auto) (0.9-7.0) % Baso % (Auto) (0.2-2.0) % Neut # (Auto) (1.4-6.5) 10^3/uL Lymph # (Auto) (1.2-3.8) 10^3/uL [place] # (Auto) (0.3-0.8) 10^3/uL Eos # (Auto) (0.0-0.7) 10^3/uL Baso # (Auto) (0.0-0.1) 10^3/uL Abs Immat Gran (auto) (0.00-0.03) 10^3/uL Imm/Tot Granulo (auto) (0.0-0.5) % PT (9.0-11.6) sec INR Sodium (136-145) mmol/L Potassium (3.5-5.1) mmol/L Chloride (98-107) mmol/L Carbon Dioxide (21.0-32.0) mmol/L Anion Gap BUN (7.0-18.0) mg/dL Creatinine (0.70-1.30) mg/dL Est GFR ( Amer) (>=60) Est GFR (Non-Af Amer) (>=60) BUN/Creatinine Ratio Glucose (74-106) mg/dL Lactate (0.4-2.0) mmol/L Calcium (8.5-10.1) mg/dL Total Bilirubin (0.2-1.0) mg/dL AST (15-37) U/L ALT (16-63) U/L Alkaline Phosphatase (46-116) U/L Troponin I High Sens (4.0-76.1) pg/mL NT-Pro-B Natriuret Pep (<=900.0) pg/mL Total Protein (6.4-8.2) g/dL Albumin (3.4-5.0) g/dL Globulin g/dL Albumin/Globulin Ratio Urine Color Lt. yellow (YELLOW) Urine Clarity Clear (CLEAR) Urine pH 7.5 (5.0-9.0) Ur Specific [place] 1.010 (1.005-1.025) Urine Protein Negative (NEG/TRACE) mg/dL Urine Glucose (UA) >=1000 A (NEGATIVE) mg/dL Urine Ketones Negative (NEGATIVE) mg/dL Urine Occult Blood Negative (NEGATIVE) Urine Nitrite Negative (NEGATIVE) Urine Bilirubin Negative (NEGATIVE) Urine Urobilinogen 0.2 (0.2-1.0) EU/dL Ur Leukocyte Esterase Negative (NEGATIVE) Urine RBC None seen (0-2) #/HPF Urine WBC None seen (NONE SEEN) #/HPF Ur Squamous Epith Cells None seen (NONE/RARE) #/LPF Urine Crystals None seen (None Seen) #/HPF Urine Bacteria None seen (NONE SEEN) #/HPF Urine Casts None seen (NONE SEEN) #/LPF Urine Mucus None seen (NONE SEEN) POC Glucose 351 H 308 H (74-106) mg/dL ECG Data Attestation: I personally reviewed and interpreted this ECG as follows: (Paced rhythm at 85 beats for minute) Discharge Plan Discharge Chief Complaint: Weakness Clinical Impression: Hyperglycemia due to diabetes mellitus, Generalized weakness, Leukocytosis Patient Disposition: Home, Self-Care Time of Disposition Decision: 02:44 Condition: Good Prescriptions / Home Meds: No Action atorvastatin 80 mg tablet 80 mg PO DAILY carvedilol 25 mg tablet 25 mg PO Q12H Farxiga 10 mg tablet 10 mg PO DAILY aspirin [Adult Low Dose Aspirin] 81 mg tablet,delayed release (DR/EC) 81 mg PO DAILY hydrocodone-acetaminophen 5-325 mg tablet 1 tab PO Q8H PRN (Reason: pain, moderate) gabapentin 400 mg capsule 400 mg PO Q12H spironolactone 25 mg tablet 25 mg PO QAM levothyroxine 50 mcg tablet 50 mcg PO .ACB isosorbide dinitrate 20 mg tablet 20 mg PO BIDWM digoxin 125 mcg (0.125 mg) tablet 0.125 mg PO QDAY potassium chloride [Klor-Con M10] 10 mEq Tablet,Er Particles/Crystals 20 meq PO TID Qty: 90 11RF bumetanide 2 mg tablet 2 mg PO BID Qty: 60 0RF warfarin 2.5 mg tablet 2.5 mg PO DAILY Patient Comments: DIRECTED BY CLINIC nitroglycerin 0.4 mg tablet, sublingual 0.4 mg sublingual Q5M PRN (Reason: chest pain) hydralazine 50 mg tablet 50 mg PO Q8H Rx Instructions: PER RETAIL FILL HX - LAST FILLED 02/20/23 #270 FOR A 90 DAY SUPPLY cyanocobalamin (vitamin B-12) 1,000 mcg tablet extended release 1,000 mcg PO DAILY amitriptyline 25 mg tablet 25 mg PO .COMPLEX PRN (Reason: sleep) Rx Instructions: 25 mg orally nightly; PER RETAIL FILL HX - LAST FILLED 01/30/23 #90 FOR A 90 DAY SUPPLY PRN; metolazone 2.5 mg Tablet 2.5 mg PO DAILY Instructions: Leukocytosis (ED), Weakness (ED) Additional Instructions: Followup with your director of operations home health tomorrow as scheduled. Return to the ED as needed. Continue wound care Stand Alone Forms: Portal Instructions Referrals: VINNIE STEWART [Primary Care Provider] - 1 week Discharge Date/Time: 08/23/23 03:04
[2023-08-23 01:06] LABS: Alanine Aminotransferase 20 U/L (16-63); Albumin Globulin Ratio 0.8; Albumin Level 3.4 g/dL (3.4-5.0); Alkaline Phosphatase 161 U/L (46-116); Anion Gap 8.9; Aspartate Amino Transferase 12 U/L (15-37); BUN Creatinine Ratio 26.6; Bilirubin Total 1.4 mg/dL (0.2-1.0); Calcium 8.8 mg/dL (8.5-10.1); Carbon Dioxide 34.1 mmol/L (21.0-32.0); Chloride 88 mmol/L (98-107); Estimated GFR (African America 41 (>=60); Estimated GFR (Non-African Ame 33 (>=60); Globulin 4.4 g/dL; Glucose 370 mg/dL (74-106); Sodium 127 mmol/L (136-145); Total Protein 7.8 g/dL (6.4-8.2); Troponin I High Sensitivity 47.7 pg/mL (4.0-76.1)
[2023-08-23 01:23] LABS: Glucometer 308 mg/dL (74-106)
[2023-08-23 01:27] LABS: INR 2.48
[2023-08-23 01:34] LABS: Lactate/Lactic Acid 1.9 mmol/L (0.4-2.0)
[2023-08-23 02:13] LABS: Bilirubin Urine NEGATIVE (NEGATIVE); Blood Urine NEGATIVE (NEGATIVE); Clarity Urine CLEAR (CLEAR); Color Urine LT. YELLOW (YELLOW); Glucose Urine UA >=1000 mg/dL (NEGATIVE); Ketones Urine NEGATIVE (NEGATIVE); Leukocyte Esterase Urine NEGATIVE (NEGATIVE); Nitrite Urine NEGATIVE (NEGATIVE); Protein Urine NEGATIVE (NEG/TRACE); Urobilinogen Urine 0.2 EU/dL (0.2-1.0); pH Urine 7.5 (5.0-9.0)
--- NOTE | 2023-08-23 02:18 | ECG_ITS ---
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
[2023-08-23 02:23] LABS: Bacteria Urine NONE SEEN #/HPF (NONE SEEN); Cast Seen? NONE SEEN #/LPF (NONE SEEN); Crystals Seen? None Seen #/HPF (None Seen); Mucus Urine NONE SEEN (NONE SEEN); RBC Urine NONE SEEN #/HPF (0-2); Squamous Epithelial Cell Urine NONE SEEN #/LPF (NONE/RARE); WBC Urine NONE SEEN #/HPF (NONE SEEN)
[2023-08-23 02:49] LABS: Glucometer 299 mg/dL (74-106)
== END 2023-08-23 03:04 | disposition home or self-care (01) ==
PROVIDERS: Emergency Provider Emergency Medicine; PCP Family Medicine
DX: E11.65 Type 2 diabetes mellitus with hyperglycemia (principal); I25.10 Atherosclerotic heart disease of native coronary artery without angina pectoris; Z95.0 Presence of cardiac pacemaker; J44.9 Chronic obstructive pulmonary disease, unspecified; Z87.891 Personal history of nicotine dependence; Z79.4 Long term (current) use of insulin; Z99.81 Dependence on supplemental oxygen; Z79.82 Long term (current) use of aspirin; Z79.899 Other long term (current) drug therapy; Z79.01 Long term (current) use of anticoagulants; D63.1 Anemia in chronic kidney disease; E11.22 Type 2 diabetes mellitus with diabetic chronic kidney disease; I12.9 Hypertensive chronic kidney disease with stage 1 through stage 4 chronic kidney disease, or unspecified chronic kidney disease; I50.22 Chronic systolic (congestive) heart failure; N18.31 Chronic kidney disease, stage 3a; E78.5 Hyperlipidemia, unspecified; E03.9 Hypothyroidism, unspecified; I48.0 Paroxysmal atrial fibrillation; Z87.01 Personal history of pneumonia (recurrent); Z90.49 Acquired absence of other specified parts of digestive tract; R53.1 Weakness; D72.829 Elevated white blood cell count, unspecified
CPT/HCPCS: 36415; 71045; 80053; 81001; 83605; 83880; 84484; 85025; 85610; 87040; 93005; 99285

== ENCOUNTER 2023-08-30 09:55 | Emergency (ER) | payer MEDICARE, SELFPAY ==
[2023-08-30] VITALS (49 sets, daily range): BP systolic 82–146; BP diastolic 47–69; PULSE 83–93; RESP 14–53; TEMP 35.4–41.5; O2SAT 94–100; BMI 29.3
--- NOTE | 2023-08-30 10:02 | ECG_ITS ---
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
--- NOTE | 2023-08-30 10:02 | CT_ITS ---
The [address] [address] Patient Name: ADWOA PORTER MRN: [id number] date: 1955 Sex: M Assigned Patient Location: ER Current Patient Location: ER Accession/Order Number: [id number] Exam Date: 08/30/2023 10:25 Report Date: 08/30/2023 10:57 At the request of: PAMELA CHAVEZ Procedure: CT head/brain wo con CT head/brain wo con, 08/30/2023 10:25 AM EDT INDICATION: altered MS COMPARISON: Prior CT dated 07/12/2023 TECHNIQUE: Axial CT images of the brain from skull base to vertex, including portions of the face and sinuses, were obtained without contrast . Multiplanar reformatted images were generated and reviewed as needed. Dose reduction techniques were achieved by using automated exposure control and/or adjustment of mA and/or kV according to patient size and/or use of iterative reconstruction technique. FINDINGS: The cerebral sulci as well as ventricular system are appropriate for age. 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 There is persistent cavum septum pellucidum. There is no intracranial mass, mass effect, midline shift, intra or extra-axial fluid collection or hemorrhage. Periventricular and centrum semiovale hypodensities are most likely consistent with microvascular ischemic changes. The visualized portions of orbits, mastoid air cells as well as paranasal sinuses are unremarkable. There is status post bilateral lens replacement. There is no suspicious osteolytic or osteoblastic lesion. CT/CT head/brain wo con IMPRESSION: No acute intracranial process is noted. Electronically authenticated by: RICO RG Date: 08/30/2023 10:57
--- NOTE | 2023-08-30 10:02 | XR_ITS ---
The [address] [address] Patient Name: ADWOA PORTER MRN: [id number] date: 1955 Sex: M Assigned Patient Location: ER Current Patient Location: ED.MAIN Accession/Order Number: [id number] Exam Date: 08/30/2023 10:25 Report Date: 08/30/2023 10:54 At the request of: PAMELA CHAVEZ Procedure: XR chest 1V EXAMINATION: XR chest 1V HISTORY: SOB COMPARISON: XR chest 08/23/2023 FINDINGS: LUNGS: Endotracheal tube with tip approximately 5.4 cm above the matthew. Small patchy opacities scattered within the lungs. VASCULATURE: No increased pulmonary vasculature. PLEURA: No pneumothorax, effusion, or pleural thickening. CARDIAC: Stable heart size, bordering on enlargement. Stable cardiac pacer. MEDIASTINUM: No visible mass or adenopathy. BONES: No fracture or visible bone lesion. OTHER: Negative. XR/XR chest 1V IMPRESSION: 1. Endotracheal tube placement with tip approximately 5.4 cm above the matthew. Evaluation is slightly limited. 2. Suspect multifocal mild bilateral infiltrates; not significantly changed. Electronically authenticated by: BIANCA STUART Date: 08/30/2023 10:54
--- NOTE | 2023-08-30 10:11 | PC.NURSE ---
resp and DR at bedside. 20mg Etomidate given at 1012, pt intubated at 1014 O2 sat at 97%, 2mg Versed given at 1015. O2 sats 97%, resp bagging at this time. Tube 24 at the [facility]. Portable chest in progress. 2mg Versed given at [address] order. Resp continues to bag pt. Rectal Tylenol given at 1018. Pt O2 dats 100% at this time. CXR complete. Pt to CT at 1023
[2023-08-30] MEDS: ACETAMINOPHEN 650 MG RECTAL SUPPOSITORY PR (10:15)
[2023-08-30] MEDS: PROPOFOL 1,000 MG/100 ML VIAL 2.7 MG IV (10:20)
[2023-08-30 10:42] LABS: Bilirubin Urine NEGATIVE (NEGATIVE); Blood Urine TRACE-I (NEGATIVE); Clarity Urine CLEAR (CLEAR); Color Urine YELLOW (YELLOW); Glucose Urine UA >=1000 mg/dL (NEGATIVE); Ketones Urine NEGATIVE (NEGATIVE); Leukocyte Esterase Urine NEGATIVE (NEGATIVE); Nitrite Urine NEGATIVE (NEGATIVE); Protein Urine >=300 mg/dL (NEG/TRACE)
[2023-08-30 10:52] LABS: Bacteria Urine NONE SEEN #/HPF (NONE SEEN); Mucus Urine NONE SEEN (NONE SEEN); Squamous Epithelial Cell Urine FEW #/LPF (NONE/RARE); WBC Urine NONE SEEN #/HPF (NONE SEEN)
[2023-08-30] MEDS: 0.9 % SODIUM CHLORIDE 1,000 ML 1000 ML IV (10:59)
[2023-08-30] MEDS: PIPERACILLIN SODIUM/TAZOBACTAM 4.5 GM in 0.9 % SODIUM CHLORIDE 50 ML IV (10:59)
--- NOTE | 2023-08-30 11:16 | ED.GENADUL1 ---
HPI - General Adult General Chief complaint: Fever Stated complaint: FEVER Time Seen by Provider: 08/30/23 10:02 Mode of arrival: ambulance History of Present Illness HPI narrative: 68-year-old male presents to the emergency department for altered mental status. The history is obtained from the paramedics and his girlfriend. The girlfriend reports that she went to work last night just before 9 PM and he was well. When she got home from work this morning just after 9 AM he was not a bed and he wasn't responding so she called the paramedics. She realized that he felt hot to touch. Paramedics placed him on oxygen and transported him here and had checked her blood sugar and it was higher than five hundred. No further history is obtainable. Related Data Home Medications Medication Instructions Recorded Confirmed aspirin 81 mg tablet,delayed 81 mg PO DAILY 05/24/23 08/20/23 release (Adult Low Dose Aspirin) atorvastatin 80 mg tablet 80 mg PO DAILY 05/24/23 08/20/23 carvedilol 25 mg tablet 25 mg PO Q12H 05/24/23 08/20/23 dapagliflozin propanediol 10 mg 10 mg PO DAILY 05/24/23 08/20/23 tablet (Farxiga) digoxin 125 mcg (0.125 mg) tablet 0.125 mg PO QDAY 05/24/23 08/20/23 gabapentin 400 mg capsule 400 mg PO Q12H 05/24/23 08/20/23 hydrocodone 5 mg-acetaminophen 325 1 tab PO Q8H PRN pain, moderate 05/24/23 08/20/23 mg tablet isosorbide dinitrate 20 mg tablet 20 mg PO BIDWM 05/24/23 08/20/23 levothyroxine 50 mcg tablet 50 mcg PO .ACB 05/24/23 08/20/23 spironolactone 25 mg tablet 25 mg PO QAM 05/24/23 08/20/23 amitriptyline 25 mg tablet 25 mg PO .COMPLEX PRN sleep 06/02/23 08/21/23 cyanocobalamin (vitamin B-12) 1,000 mcg PO DAILY 06/02/23 08/20/23 1,000 mcg tablet,extended release hydralazine 50 mg tablet 50 mg PO Q8H 06/02/23 08/20/23 metolazone 2.5 mg tablet 2.5 mg PO DAILY 06/02/23 08/20/23 nitroglycerin 0.4 mg sublingual 0.4 mg sublingual Q5M PRN chest 06/02/23 08/20/23 tablet pain warfarin 2.5 mg tablet 2.5 mg PO DAILY 06/02/23 08/20/23 Previous Rx's Medication Instructions Recorded potassium chloride 10 mEq 20 meq PO TID #90 tabs 06/21/23 tablet,extended release(part/cryst) (Klor-Con M) bumetanide 2 mg tablet 2 mg PO BID #60 tabs 08/22/23 Allergies Allergy/AdvReac Type Severity Reaction Status Date / Time No Known Drug Allergies Allergy Verified 07/31/23 13:47 Review of Systems ROS Narrative not obtainable, unresponsive [facility] Medical History (Updated 08/30/23 @ 14:37 by Wayne Ro MD) Acute urinary retention ?R33.8 - Other retention of urine (ICD-10) Anemia in chronic kidney disease ?N18.9 - Chronic kidney disease, unspecified (ICD-10) ?D63.1 - Anemia in chronic kidney disease (ICD-10) Ascites ?R18.8 - Other ascites (ICD-10) Benign essential hypertension ?I10 - Essential (primary) hypertension (ICD-10) CAD (coronary artery disease) ?I25.10 - Atherosclerotic heart disease of [place] coronary artery without angina pectoris (ICD-10) Cardiac defibrillator in place ?Z95.810 - Presence of automatic (implantable) cardiac defibrillator (ICD-10) Chronic HFrEF (heart failure with reduced ejection fraction) ?I50.22 - Chronic systolic (congestive) heart failure (ICD-10) Chronic kidney disease, stage 3a ?N18.31 - Chronic kidney disease, stage 3a (ICD-10) Chronic wound of extremity CKD (chronic kidney disease) stage 4, GFR 15-29 ml/min ?N18.4 - Chronic kidney disease, stage 4 (severe) (ICD-10) Closed head injury ?S09.90XA - Unspecified injury of head, initial encounter (ICD-10) COPD (chronic obstructive pulmonary disease) ?J44.9 - Chronic obstructive pulmonary disease, unspecified (ICD-10) Dyspnea ?R06.00 - Dyspnea, unspecified (ICD-10) Elevated INR ?R79.1 - Abnormal coagulation profile (ICD-10) Fluid retention ?R60.9 - Edema, unspecified (ICD-10) HLD (hyperlipidemia) ?E78.5 - Hyperlipidemia, unspecified (ICD-10) Hypothyroid ?E03.9 - Hypothyroidism, unspecified (ICD-10) Pacemaker ?Z95.0 - Presence of cardiac pacemaker (ICD-10) Paroxysmal atrial fibrillation ?I48.0 - Paroxysmal atrial fibrillation (ICD-10) Pneumonia ?J18.9 - Pneumonia, unspecified organism (ICD-10) Type 2 diabetes mellitus with hyperglycemia ?E11.65 - Type 2 diabetes mellitus with hyperglycemia (ICD-10) Surgical History (Updated 06/20/23 @ 13:44 by Susanna Gill) History of appendectomy ?Z90.49 - Acquired absence of other specified parts of digestive tract (ICD-10) Family History Mother Family history of CHF (congestive heart failure) Brother Family history of cancer Social History Within the past year, how often did you have a drink containing alcohol: never Within the past year, how often did you have six or more drinks on one occasion: never Score interpretation: A score less than 4 is consistent with normal alcohol consumption. 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 Known occupational exposures/hazards: No Highest level of school completed/degree received: high school graduate Do you want help with school or training: No Are you now , , , , never or living with a partner: living with partner In a typical week, how many times do you talk on the telephone with family, friends, or neighbors: 3 or more times per week How often do you get together with friends or relatives: 3 or more times per week How often do you attend amish or anabaptism services: never Do you belong to any clubs or organizations such as amish groups unions, fraternal or athletic groups, or school groups: no Total score: 2 Score interpretation: A score of greater than or equal to 2 indicates the lowest level of social isolation. Little interest or pleasure in doing things: not at all Feeling down, depressed, or hopeless: not at all Feel stressed/tense/nervous/anxious/difficulty sleeping: not at all Due to disability, difficulty making decisions: No Do you think of yourself as: straight/heterosexual Gender Identity: male Exam Narrative Exam Narrative: Nurses note and vital signs reviewed and patient is not hypoxic. General: The patient is unresponsive and tachypnea. He is quite hot to touch. Skin: Warm, dry, no pallor noted. he has numerous bruises on various areas of his body including his forehead and chest. Head: Normocephalic, atraumatic Eye: Normal conjunctiva, no drainage Ears, Nose, Mouth, and Throat: oral mucosa is moderately dry Cardiovascular: Regular Rate and Rhythm, not tachycardic Respiratory: tachypneic, breath sounds are equal GI: nondistended. No masses. Not apparently tender but he has altered mental status Musculoskeletal: The patient has no pitting edema, symmetrical pulses noted bilaterally Neurological: unresponsive, doesn't follow commands Psychiatric: cannot be tested Constitutional Vital Signs, click to edit/add: Last Vital Signs Temp 100.6 F H 08/30/23 12:21 Pulse 83 08/30/23 11:15 Resp 16 08/30/23 11:15 BP 134/61 08/30/23 10:45 Pulse Ox 100 08/30/23 11:15 O2 Del Method Mechanical Ventilator 08/30/23 11:12 O2 Flow Rate 10 08/30/23 10:06 FiO2 100 08/30/23 11:15 Course Vital Signs Vital signs: Vital Signs Temperature 106.7 F H 08/30/23 09:59 Pulse Rate 86 08/30/23 09:59 Respiratory Rate 38 H 08/30/23 09:59 Blood Pressure 140/69 08/30/23 09:59 Pulse Oximetry 95 08/30/23 09:59 Oxygen Delivery Method Nonrebreather 08/30/23 09:59 Temperature 100.6 F H 08/30/23 12:21 Pulse Rate 83 08/30/23 11:15 Respiratory Rate 16 08/30/23 11:15 Blood Pressure 134/61 08/30/23 10:45 Pulse Oximetry 100 08/30/23 11:15 Oxygen Delivery Method Mechanical Ventilator 08/30/23 11:12 Oxygen Delivery Flow Rate 10 08/30/23 10:06 Fraction of Inspired Oxygen 100 10/12/23 11:15 Medical Decision Making MDM Narrative Medical decision making narrative: The patient presented with respiratory failure, upon arrival he was tachypneic with a respiratory rate of over fifty. He also had a rectal temperature of 106.7 degrees. This has come down with rectal Tylenol and some ice packs. He was given IV fluids. He has not been hypotensive or tachycardic. Questionable infiltrates are present on his chest x-ray but this is unchanged from previous. CAT scan of his brain is negative. White count is twelve. BUN and creatinine are elevated somewhat above his baseline. Urinalysis shows no evidence of urinary tract infection and Covid test is negative. Blood cultures were obtained and are pending. I've spoken to the patient's girlfriend who is the POA. Initially she wanted transfer to [facility] but they have no beds available. According the patient of this fact she requested to [facility] and I've spoken to Dr. Weston there who has accepted the patient. The patient is stable for transfer. the patient had already been given IV Zosyn and vancomycin and after discussing the case with Dr. Weston, the patient was given IV Rocephin and ampicillin and acyclovir. The patient is on warfarin and LP would not be indicated. Differential Diagnosis Differential Diagnosis: sepsis, pneumonia, intercranial hemorrhage, urinary tract infection Medical Records Medical records reviewed: Yes I reviewed the patient's medical records Lab Data Lab results reviewed: Yes I reviewed the patient's lab results Labs: Lab Results 08/30/23 08/30/23 08/30/23 Range/Units 10:15 10:55 11:06 WBC 12.8 H (4.0-11.0) 10^3/uL RBC 4.70 (4.70-6.10) 10^6/uL Hgb 12.8 L (14.0-18.0) g/dL Hct 39.1 L (42.0-54.0) % MCV 83.2 (80.0-94.0) fL MCH 27.2 (25.9-34.0) pg MCHC 32.7 (29.9-35.2) g/dL RDW 19.7 H (11.0-15.0) % Plt Count 368 (150-450) 10^3/uL MPV 10.2 (9.5-13.5) fL Neut % (Auto) 87.4 H (43.0-75.0) % Lymph % (Auto) 6.9 L (20.5-60.0) % [place] % (Auto) 3.7 (1.7-12.0) % Eos % (Auto) 0.2 L (0.9-7.0) % Baso % (Auto) 0.2 (0.2-2.0) % Neut # (Auto) 11.2 H (1.4-6.5) 10^3/uL Lymph # (Auto) 0.9 L (1.2-3.8) 10^3/uL [place] # (Auto) 0.5 (0.3-0.8) 10^3/uL Eos # (Auto) 0.0 (0.0-0.7) 10^3/uL Baso # (Auto) 0.0 (0.0-0.1) 10^3/uL Abs Immat Gran (auto) 0.21 H (0.00-0.03) 10^3/uL Imm/Tot Granulo (auto) 1.6 H (0.0-0.5) % Puncture Site ABG pH (7.350-7.450) ABG pCO2 (35.0-45.0) mmHg ABG pO2 (80.0-100.0) mmHg ABG HCO3 (22.0-26.0) mmol/L ABG O2 Saturation % ABG Base Excess (-2.0-2.0) mmol/L Callum Test (POSITIVE) Vent Mode FiO2 % Tidal Volume Pressure Support Sodium 121 L* (136-145) mmol/L Potassium 4.3 (3.5-5.1) mmol/L Chloride 82 L* (98-107) mmol/L Carbon Dioxide 30.3 (21.0-32.0) mmol/L Anion Gap 13.0 BUN 66.0 H (7.0-18.0) mg/dL Creatinine 2.95 H (0.70-1.30) mg/dL Est GFR ( Amer) 26 L (>=60) Est GFR (Non-Af Amer) 21 L (>=60) BUN/Creatinine Ratio 22.4 Glucose 686 H* (74-106) mg/dL Lactate 3.2 H* (0.4-2.0) mmol/L Calcium 8.5 (8.5-10.1) mg/dL Troponin I High Sens 189.9 H* (4.0-76.1) pg/mL Urine Color Yellow (YELLOW) Urine Clarity Clear (CLEAR) Urine pH 6.0 (5.0-9.0) Ur Specific [place] 1.020 (1.005-1.025) Urine Protein >=300 A (NEG/TRACE) mg/dL Urine Glucose (UA) >=1000 A (NEGATIVE) mg/dL Urine Ketones Negative (NEGATIVE) mg/dL Urine Occult Blood Trace-i (NEGATIVE) Urine Nitrite Negative (NEGATIVE) Urine Bilirubin Negative (NEGATIVE) Urine Urobilinogen 1.0 (0.2-1.0) EU/dL Ur Leukocyte Esterase Negative (NEGATIVE) Urine RBC 2-5 A (0-2) #/HPF Urine WBC None seen (NONE SEEN) #/HPF Ur Squamous Epith Cells Few A (NONE/RARE) #/LPF Urine Bacteria None seen (NONE SEEN) #/HPF Urine Mucus None seen (NONE SEEN) SARS-CoV-2 (PCR) Negative (NEGATIVE) 08/30/23 08/30/23 08/30/23 Range/Units 11:27 12:03 13:55 WBC (4.0-11.0) 10^3/uL RBC (4.70-6.10) 10^6/uL Hgb (14.0-18.0) g/dL Hct (42.0-54.0) % MCV (80.0-94.0) fL MCH (25.9-34.0) pg MCHC (29.9-35.2) g/dL RDW (11.0-15.0) % Plt Count (150-450) 10^3/uL MPV (9.5-13.5) fL Neut % (Auto) (43.0-75.0) % Lymph % (Auto) (20.5-60.0) % [place] % (Auto) (1.7-12.0) % Eos % (Auto) (0.9-7.0) % Baso % (Auto) (0.2-2.0) % Neut # (Auto) (1.4-6.5) 10^3/uL Lymph # (Auto) (1.2-3.8) 10^3/uL [place] # (Auto) (0.3-0.8) 10^3/uL Eos # (Auto) (0.0-0.7) 10^3/uL Baso # (Auto) (0.0-0.1) 10^3/uL Abs Immat Gran (auto) (0.00-0.03) 10^3/uL Imm/Tot Granulo (auto) (0.0-0.5) % Puncture Site R rad ABG pH 7.475 H (7.350-7.450) ABG pCO2 42.1 (35.0-45.0) mmHg ABG pO2 >488.0 H (80.0-100.0) mmHg ABG HCO3 31.0 H (22.0-26.0) mmol/L ABG O2 Saturation >100.0 % ABG Base Excess 7.4 H (-2.0-2.0) mmol/L Callum Test Positive (POSITIVE) Vent Mode A/c FiO2 100 % Tidal Volume 600 Pressure Support Sodium (136-145) mmol/L Potassium (3.5-5.1) mmol/L Chloride (98-107) mmol/L Carbon Dioxide (21.0-32.0) mmol/L Anion Gap BUN (7.0-18.0) mg/dL Creatinine (0.70-1.30) mg/dL Est GFR ( Amer) (>=60) Est GFR (Non-Af Amer) (>=60) BUN/Creatinine Ratio Glucose (74-106) mg/dL Lactate 3.5 H* (0.4-2.0) mmol/L Calcium (8.5-10.1) mg/dL Troponin I High Sens 213.4 H* (4.0-76.1) pg/mL Urine Color (YELLOW) Urine Clarity (CLEAR) Urine pH (5.0-9.0) Ur Specific [place] (1.005-1.025) Urine Protein (NEG/TRACE) mg/dL Urine Glucose (UA) (NEGATIVE) mg/dL Urine Ketones (NEGATIVE) mg/dL Urine Occult Blood (NEGATIVE) Urine Nitrite (NEGATIVE) Urine Bilirubin (NEGATIVE) Urine Urobilinogen (0.2-1.0) EU/dL Ur Leukocyte Esterase (NEGATIVE) Urine RBC (0-2) #/HPF Urine WBC (NONE SEEN) #/HPF Ur Squamous Epith Cells (NONE/RARE) #/LPF Urine Bacteria (NONE SEEN) #/HPF Urine Mucus (NONE SEEN) SARS-CoV-2 (PCR) (NEGATIVE) Imaging Data CT brain, chest x-ray: Radiologist's impression: Procedure: CT head/brain wo con CT head/brain wo con, 08/30/2023 10:25 AM EDT INDICATION: altered MS COMPARISON: Prior CT dated 07/12/2023 TECHNIQUE: Axial CT images of the brain from skull base to vertex, including portions of the face and sinuses, were obtained without contrast . Multiplanar reformatted images were generated and reviewed as needed. Dose reduction techniques were achieved by using automated exposure control and/or adjustment of mA and/or kV according to patient size and/or use of iterative reconstruction technique. FINDINGS: The cerebral sulci as well as ventricular system are appropriate for age. 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 There is persistent cavum septum pellucidum. There is no intracranial mass, mass effect, midline shift, intra or extra-axial fluid collection or hemorrhage. Periventricular and centrum semiovale hypodensities are most likely consistent with microvascular ischemic changes. The visualized portions of orbits, mastoid air cells as well as paranasal sinuses are unremarkable. There is status post bilateral lens replacement. There is no suspicious osteolytic or osteoblastic lesion. IMPRESSION: No acute intracranial process is noted. Electronically authenticated by: RICO RG Date: 08/30/2023 10:57 Procedure: XR chest 1V EXAMINATION: XR chest 1V HISTORY: SOB COMPARISON: XR chest 08/23/2023 FINDINGS: LUNGS: Endotracheal tube with tip approximately 5.4 cm above the matthew. Small patchy opacities scattered within the lungs. VASCULATURE: No increased pulmonary vasculature. PLEURA: No pneumothorax, effusion, or pleural thickening. CARDIAC: Stable heart size, bordering on enlargement. Stable cardiac pacer. MEDIASTINUM: No visible mass or adenopathy. BONES: No fracture or visible bone lesion. OTHER: Negative. IMPRESSION: 1. Endotracheal tube placement with tip approximately 5.4 cm above the matthew. Evaluation is slightly limited. 2. Suspect multifocal mild bilateral infiltrates; not significantly changed. Electronically authenticated by: BIANCA STUART Date: 08/30/2023 10:54 Critical Care Time Critical Care Time Total Critical Care Time: 100 Attestation: Due to the high probability of sudden and clinically significant deterioration in the patient's condition he/she required the highest level of my preparedness to intervene urgently I provided critical care time including documentation time, medication orders and management, reevaluation, vital sign assessment, ordering and reviewing of lab tests, ordering and reviewing of x-ray studies, and admission orders. Aggregate critical care time is 100 minutes including only time during which I was engaged in work directly related to his/her care and did not include time spent treating other patients simultaneously. Discharge Plan Discharge Chief Complaint: Fever Clinical Impression: Fever of unknown origin, Respiratory failure Patient Disposition: [facility] Time of Disposition Decision: 14:36 Discharge Location: [facility] Condition: Critical Mode of Transportation: Private Vehicle Procedures ED Procedure Instructions Procedures Procedures: the following procedure was performed by me. Upon arrival the patient was quite tachypneic and was clearly in respiratory failure. He was given IV etomidate which resulted in excellent sedation and was then orotracheally intubated on 1st attempt with 7.0 ET tube with visualization of the tube passing between the cords and appropriate change on the capnometer. Chest x-ray reported by the radiologist as having the tip of the tube 5.4 cm above the matthew. This is not consistent with his physical examination. The tube is well advanced and could not be advanced much further. He is ventilating well and O2 sats are one hundred percent. He did not have any desaturation at any point.
[2023-08-30 11:18] LABS: Basophils Percent Auto 0.2 % (0.2-2.0); Eosinophils Percent Auto 0.2 % (0.9-7.0); Hematocrit 39.1 % (42.0-54.0); Hemoglobin 12.8 g/dL (14.0-18.0); Immature Granulocytes Abs Auto 0.21 10^3/uL (0.00-0.03); Immature Granulocytes Pct Auto 1.6 % (0.0-0.5); Lymphocytes Absolute Auto 0.9 10^3/uL (1.2-3.8); Lymphocytes Percent Auto 6.9 % (20.5-60.0); Mean Corpuscular HGB Conc 32.7 g/dL (29.9-35.2); Mean Corpuscular Hemoglobin 27.2 pg (25.9-34.0); Mean Corpuscular Volume 83.2 fL (80.0-94.0); Mean Platelet Volume 10.2 fL (9.5-13.5); Monocytes Absolute Auto 0.5 10^3/uL (0.3-0.8); Monocytes Percent Auto 3.7 % (1.7-12.0); Neutrophils Absolute Auto 11.2 10^3/uL (1.4-6.5); Neutrophils Percent Auto 87.4 % (43.0-75.0); Platelet Count 368 10^3/uL (150-450); Red Cell Distribution Width 19.7 % (11.0-15.0); White Blood Count 12.8 10^3/uL (4.0-11.0)
[2023-08-30 11:28] LABS: SARS-CoV-2 Ag NEGATIVE (NEGATIVE)
[2023-08-30] MEDS: VANCOMYCIN HCL 1,500 MG in 0.9 % SODIUM CHLORIDE 500 ML 250 MG IV (11:31)
[2023-08-30 11:37] LABS: BUN Creatinine Ratio 22.4; Calcium 8.5 mg/dL (8.5-10.1); Carbon Dioxide 30.3 mmol/L (21.0-32.0); Estimated GFR (African America 26 (>=60); Estimated GFR (Non-African Ame 21 (>=60); Potassium 4.3 mmol/L (3.5-5.1)
[2023-08-30 11:38] LABS: Chloride 82 mmol/L (98-107); Glucose 686 mg/dL (74-106); Sodium 121 mmol/L (136-145); Troponin I High Sensitivity 189.9 pg/mL (4.0-76.1)
[2023-08-30 11:46] LABS: ABG PCO2 42.1 mmHg (35.0-45.0); pH ABG 7.475 (7.350-7.450)
[2023-08-30 11:48] LABS: PO2 ABG >488.0 mmHg (80.0-100.0)
[2023-08-30 11:49] LABS: Allen Test POSITIVE (POSITIVE); Base Excess ABG 7.4 mmol/L (-2.0-2.0); Oxygen Saturation ABG >100.0 %
[2023-08-30 11:50] LABS: Fractionated Inspired Oxygen 100 %; O2 Mode VENT
[2023-08-30 11:51] LABS: Puncture Site R RAD; Rate 16; Tidal Volume 600; Vent Mode A/C
[2023-08-30 12:19] LABS: Lactate/Lactic Acid 3.2 mmol/L (0.4-2.0)
[2023-08-30 12:42] LABS: Troponin I High Sensitivity 213.4 pg/mL (4.0-76.1)
[2023-08-30] MEDS: INSULIN REGULAR 300 UNITS/3 ML 10 UNIT IV (13:04)
[2023-08-30 14:23] LABS: Lactate/Lactic Acid 3.5 mmol/L (0.4-2.0)
[2023-08-30 14:46] LABS: SARS-CoV-2 NAA NOT DETECTED (NOT DETECTE)
[2023-08-30 14:46] LABS: Amphetamine Screen Urine NEGATIVE (NEGATIVE); Barbiturates Screen Urine NEGATIVE (NEGATIVE); Benzodiazepines Screen Urine NEGATIVE (NEGATIVE); Buprenorphine Screen Urine NEGATIVE (NEGATIVE); Cannabinoid Screen Urine NEGATIVE (NEGATIVE); Cocaine Screen Urine NEGATIVE (NEGATIVE); Methadone Screen Urine NEGATIVE (NEGATIVE); Methamphetamines Screen Urine NEGATIVE (NEGATIVE); Opiate Screen Urine POSITIVE (NEGATIVE); Oxycodone Screen Urine NEGATIVE (NEGATIVE); Phencyclidine Screen Urine NEGATIVE (NEGATIVE); Tricyclic Antidepressant Urine NEGATIVE (NEGATIVE)
[2023-08-30 14:59] LABS: INR 1.98; Prothrombin Time 20.2 sec (9.0-11.6)
[2023-08-30] MEDS: CEFTRIAXONE 2,000 MG in 0.9 % SODIUM CHLORIDE 100 ML 200 MG IV (15:02)
[2023-08-30] MEDS: AMPICILLIN SODIUM 2,000 MG in 0.9 % SODIUM CHLORIDE 100 ML 200 MG IV (15:36)
== END 2023-08-30 16:20 | disposition short-term general hospital (02) ==
PROVIDERS: Emergency Provider Emergency Medicine; PCP Family Medicine
DX: J96.90 Respiratory failure, unspecified, unspecified whether with hypoxia or hypercapnia (principal); R50.9 Fever, unspecified; I13.0 Hypertensive heart and chronic kidney disease with heart failure and stage 1 through stage 4 chronic kidney disease, or unspecified chronic kidney disease; I25.10 Atherosclerotic heart disease of native coronary artery without angina pectoris; Z95.810 Presence of automatic (implantable) cardiac defibrillator; I50.22 Chronic systolic (congestive) heart failure; N18.9 Chronic kidney disease, unspecified; J44.9 Chronic obstructive pulmonary disease, unspecified; E78.5 Hyperlipidemia, unspecified; E03.9 Hypothyroidism, unspecified; I48.0 Paroxysmal atrial fibrillation; E11.22 Type 2 diabetes mellitus with diabetic chronic kidney disease; Z87.01 Personal history of pneumonia (recurrent); Z87.891 Personal history of nicotine dependence; Z20.822 Contact with and (suspected) exposure to COVID-19; Z79.82 Long term (current) use of aspirin; Z79.899 Other long term (current) drug therapy; Z79.890 Hormone replacement therapy
CPT/HCPCS: 31500; 36415; 36416; 36600; 51702; 70450; 71045; 80048; 80307; 81001; 82805; 83605; 84484; 85025; 85610; 87040; 87070; 87150; 87186; 87205; 87635; 87811; 93005; 94002; 96365; 96375; 99291; 99292; J3370

== ENCOUNTER 2023-09-19 00:39 | Outpatient (RCR) | payer MEDICARE, SELFPAY | END 2023-10-18 16:35 | disposition home or self-care (01) | LOC: MM 00:39 | PROVIDERS: PCP Family Medicine; Visit Provider Internal Medicine | DX: Z51.81 Encounter for therapeutic drug level monitoring (principal); Z79.01 Long term (current) use of anticoagulants; I48.91 Unspecified atrial fibrillation | CPT/HCPCS: 85610; G0463 ==

== ENCOUNTER 2023-09-21 11:20 | Outpatient (OUT) | payer MEDICARE, SELFPAY ==
[2023-09-21 11:57] LABS: Basophils Absolute Auto 0.1 10^3/uL (0.0-0.1); Basophils Percent Auto 0.4 % (0.2-2.0); Eosinophils Absolute Auto 0.3 10^3/uL (0.0-0.7); Eosinophils Percent Auto 2.5 % (0.9-7.0); Hematocrit 41.5 % (42.0-54.0); Immature Granulocytes Abs Auto 0.04 10^3/uL (0.00-0.03); Immature Granulocytes Pct Auto 0.3 % (0.0-0.5); Lymphocytes Percent Auto 15.4 % (20.5-60.0); Mean Corpuscular HGB Conc 31.3 g/dL (29.9-35.2); Mean Corpuscular Volume 89.2 fL (80.0-94.0); Mean Platelet Volume 10.3 fL (9.5-13.5); Monocytes Absolute Auto 0.8 10^3/uL (0.3-0.8); Monocytes Percent Auto 6.2 % (1.7-12.0); Neutrophils Absolute Auto 9.8 10^3/uL (1.4-6.5); Neutrophils Percent Auto 75.2 % (43.0-75.0); Platelet Count 234 10^3/uL (150-450); Red Blood Count 4.65 10^6/uL (4.70-6.10); Red Cell Distribution Width 19.5 % (11.0-15.0)
[2023-09-21 12:31] LABS: Alanine Aminotransferase 18 U/L (16-63); Albumin Globulin Ratio 0.7; Albumin Level 3.4 g/dL (3.4-5.0); Alkaline Phosphatase 119 U/L (46-116); Anion Gap 8.7; Aspartate Amino Transferase 17 U/L (15-37); BUN Creatinine Ratio 19.1; Bilirubin Total 0.8 mg/dL (0.2-1.0); Calcium 9.2 mg/dL (8.5-10.1); Carbon Dioxide 34.8 mmol/L (21.0-32.0); Chloride 91 mmol/L (98-107); Digoxin 0.5 ng/mL (0.9-2.0); Estimated GFR (African America 55 (>=60); Estimated GFR (Non-African Ame 46 (>=60); Globulin 4.8 g/dL; Glucose 257 mg/dL (74-106); Potassium 3.5 mmol/L (3.5-5.1); Sodium 131 mmol/L (136-145); Total Protein 8.2 g/dL (6.4-8.2)
== END 2023-09-21 11:21 | disposition home or self-care (01) ==
LOC: LAB 11:21
PROVIDERS: PCP Family Medicine; Visit Provider Internal Medicine Interventional Cardiology
DX: I50.22 Chronic systolic (congestive) heart failure (principal)
CPT/HCPCS: 36415; 80053; 80162; 83880; 85025

== ENCOUNTER 2023-09-30 19:34 | Emergency (ER) | payer MEDICARE, SELFPAY ==
[2023-09-30 19:39] VITALS: BP 128/89; PULSE 85; RESP 18; TEMP 36.9; O2SAT 96; BMI 30.9
[2023-09-30 19:48] LABS: Glucometer 449 mg/dL (74-106)
== END 2023-09-30 20:02 | disposition left against medical advice (07) ==
LOC: ER 19:38
PROVIDERS: Emergency Provider Internal Medicine; PCP Family Medicine
DX: R73.9 Hyperglycemia, unspecified (principal); Z53.21 Procedure and treatment not carried out due to patient leaving prior to being seen by health care provider
CPT/HCPCS: 36415; 82948; 99281

== ENCOUNTER 2023-10-08 02:30 | Outpatient (OUT) | payer MEDICARE, SELFPAY | END 2023-10-08 02:31 | disposition home or self-care (01) | LOC: WC 10-16 13:47 | PROVIDERS: PCP Family Medicine; Visit Provider Physician Assistant | DX: M86.171 Other acute osteomyelitis, right ankle and foot (principal) | CPT/HCPCS: 17250 ==

== ENCOUNTER 2023-10-08 15:52 | Outpatient (OUT) | payer MEDICARE, SELFPAY | END 2023-10-08 15:53 | disposition home or self-care (01) | LOC: WC 15:53 | PROVIDERS: PCP Family Medicine; Visit Provider Podiatrist Foot & Ankle Surgery | DX: Z53.9 Procedure and treatment not carried out, unspecified reason (principal) ==

== ENCOUNTER 2023-10-19 09:07 | Outpatient (RCR) | payer MEDICARE, SELFPAY | END 2023-11-16 15:02 | disposition home or self-care (01) | LOC: MM 09:07 | PROVIDERS: PCP Family Medicine; Visit Provider Internal Medicine | DX: Z51.81 Encounter for therapeutic drug level monitoring (principal); Z79.01 Long term (current) use of anticoagulants; I48.91 Unspecified atrial fibrillation ==

== ENCOUNTER 2023-10-22 11:26 | Emergency (ER) | payer MEDICARE, SELFPAY ==
[2023-10-22 11:32] VITALS: BP 124/72; PULSE 88; RESP 20; TEMP 36.4; O2SAT 97; BMI 29.5
--- NOTE | 2023-10-22 11:38 | XR_ITS ---
[address] [address] Patient Name: ADWOA PORTER MRN: [id number] date: 1955 Sex: M Assigned Patient Location: ER Current Patient Location: ER Accession/Order Number: [id number] Exam Date: 10/22/2023 11:45 Report Date: 10/22/2023 12:30 At the request of: PAMELA CHAVEZ Procedure: XR ribs LT min 3V w CXR1V EXAMINATION: XR ribs LT min 3V w CXR1V 10/22/2023 9:27 AM PST HISTORY: fall COMPARISONS: Chest x-ray 08/30/2023 FINDINGS: Lines and tubes: Stable cardiac pulse generator and leads. Heart and mediastinum: Similar. Lungs and pleura: Small patchy opacity in the right base. There is mild vascular engorgement. There is no pleural effusion or pneumothorax. Bones: No acute osseous abnormality. LEFT RIBS: Mildly distracted fracture of the lateral left 10th rib. Healed fracture of the left ninth rib. XR/XR ribs LT min 3V w CXR1V IMPRESSION: 1. Borderline pulmonary edema. Small patchy opacity in the right base which could represent atelectasis, aspiration, or pneumonia in the appropriate clinical context. 2. Mildly displaced fracture of the left 10th rib. Electronically authenticated by: MAURO DOMINGUEZ Date: 10/22/2023 12:30
--- NOTE | 2023-10-22 11:50 | ED_ITS ---
HPI - Fall General Chief Complaint: Fall Stated Complaint: FALL/ UPPER EXTREMITY INJURY Time Seen by Provider: 10/22/23 11:33 Source: patient Mode of arrival: Wheelchair Limitations: no limitations History of Present Illness HPI Narrative: 68-year-old male presents for left rib pain. He fell in his bathroom today getting out of the shower because the floor was slippery. He hit his left posterior lateral rib area and has pain there that moderate to severe. No LOC and he has no headache or neck pain. No abdominal pain. No injury to his extremities. Related Data Home Medications Medication Instructions Recorded Confirmed aspirin 81 mg tablet,delayed 81 mg PO DAILY 05/24/23 10/22/23 release (Adult Low Dose Aspirin) atorvastatin 80 mg tablet 80 mg PO DAILY 05/24/23 10/22/23 carvedilol 25 mg tablet 25 mg PO Q12H 05/24/23 10/22/23 dapagliflozin propanediol 10 mg 10 mg PO DAILY 05/24/23 10/22/23 tablet (Farxiga) digoxin 125 mcg (0.125 mg) tablet 0.125 mg PO QDAY 05/24/23 10/22/23 gabapentin 400 mg capsule 400 mg PO Q12H 05/24/23 10/22/23 hydrocodone 5 mg-acetaminophen 325 1 tab PO Q8H PRN pain, moderate 05/24/23 mg tablet isosorbide dinitrate 20 mg tablet 20 mg PO BIDWM 05/24/23 10/22/23 levothyroxine 50 mcg tablet 50 mcg PO .ACB 05/24/23 10/22/23 spironolactone 25 mg tablet 25 mg PO QAM 05/24/23 10/22/23 amitriptyline 25 mg tablet 25 mg PO .COMPLEX PRN sleep 06/02/23 08/21/23 cyanocobalamin (vitamin B-12) 1,000 mcg PO DAILY 06/02/23 10/22/23 1,000 mcg tablet,extended release hydralazine 50 mg tablet 50 mg PO Q8H 06/02/23 10/22/23 metolazone 2.5 mg tablet 2.5 mg PO DAILY 06/02/23 10/22/23 nitroglycerin 0.4 mg sublingual 0.4 mg sublingual Q5M PRN chest 06/02/23 10/22/23 tablet pain warfarin 2.5 mg tablet 2.5 mg PO DAILY 06/02/23 10/22/23 Previous Rx's Medication Instructions Recorded potassium chloride 10 mEq 20 meq PO TID #90 tabs 06/21/23 tablet,extended release(part/cryst) (Klor-Con M) bumetanide 2 mg tablet 2 mg PO BID #60 tabs 08/22/23 oxycodone-acetaminophen 5 mg-325 1 tab PO Q6H PRN pain 5 days #20 10/22/23 mg tablet (Percocet) tabs Allergies Allergy/AdvReac Type Severity Reaction Status Date / Time GABRIELA Inhibitors AdvReac Mild COUGH Verified 10/22/23 11:31 Review of Systems ROS Narrative A ten point review of systems is negative except as noted above. [facility] Medical History (Updated 10/22/23 @ 12:51 by Wayne Ro MD) Acute urinary retention ?R33.8 - Other retention of urine (ICD-10) Anemia in chronic kidney disease ?N18.9 - Chronic kidney disease, unspecified (ICD-10) ?D63.1 - Anemia in chronic kidney disease (ICD-10) Ascites ?R18.8 - Other ascites (ICD-10) Benign essential hypertension ?I10 - Essential (primary) hypertension (ICD-10) CAD (coronary artery disease) ?I25.10 - Atherosclerotic heart disease of [place] coronary artery without angina pectoris (ICD-10) Cardiac defibrillator in place ?Z95.810 - Presence of automatic (implantable) cardiac defibrillator (ICD-10) Chronic HFrEF (heart failure with reduced ejection fraction) ?I50.22 - Chronic systolic (congestive) heart failure (ICD-10) Chronic kidney disease, stage 3a ?N18.31 - Chronic kidney disease, stage 3a (ICD-10) Chronic wound of extremity CKD (chronic kidney disease) stage 4, GFR 15-29 ml/min ?N18.4 - Chronic kidney disease, stage 4 (severe) (ICD-10) Closed head injury ?S09.90XA - Unspecified injury of head, initial encounter (ICD-10) COPD (chronic obstructive pulmonary disease) ?J44.9 - Chronic obstructive pulmonary disease, unspecified (ICD-10) Dyspnea ?R06.00 - Dyspnea, unspecified (ICD-10) Elevated INR ?R79.1 - Abnormal coagulation profile (ICD-10) Fluid retention ?R60.9 - Edema, unspecified (ICD-10) HLD (hyperlipidemia) ?E78.5 - Hyperlipidemia, unspecified (ICD-10) Hypothyroid ?E03.9 - Hypothyroidism, unspecified (ICD-10) Pacemaker ?Z95.0 - Presence of cardiac pacemaker (ICD-10) Paroxysmal atrial fibrillation ?I48.0 - Paroxysmal atrial fibrillation (ICD-10) Pneumonia ?J18.9 - Pneumonia, unspecified organism (ICD-10) Type 2 diabetes mellitus with hyperglycemia ?E11.65 - Type 2 diabetes mellitus with hyperglycemia (ICD-10) Surgical History (Updated 06/20/23 @ 13:44 by Susanna Gill) History of appendectomy ?Z90.49 - Acquired absence of other specified parts of digestive tract (ICD- 10) Family History Mother Family history of CHF (congestive heart failure) Brother Family history of cancer Social History Within the past year, how often did you have a drink containing alcohol: never Within the past year, how often did you have six or more drinks on one occasion: never Score interpretation: A score less than 4 is consistent with normal alcohol consumption. 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 Known occupational exposures/hazards: No Highest level of school completed/degree received: high school graduate Do you want help with school or training: No Are you now , , , , never or living with a partner: living with partner In a typical week, how many times do you talk on the telephone with family, friends, or neighbors: 3 or more times per week How often do you get together with friends or relatives: 3 or more times per week How often do you attend religious or mandaeism services: never Do you belong to any clubs or organizations such as religious groups unions, fraternal or athletic groups, or school groups: no Total score: 2 Score interpretation: A score of greater than or equal to 2 indicates the lowest level of social isolation. Little interest or pleasure in doing things: not at all Feeling down, depressed, or hopeless: not at all Feel stressed/tense/nervous/anxious/difficulty sleeping: not at all Due to disability, difficulty making decisions: No Do you think of yourself as: straight/heterosexual Gender Identity: male Exam Narrative Exam Narrative: Nurses note and vital signs reviewed and patient is not hypoxic. General: The patient appears uncomfortable. Skin: Warm, dry, no pallor noted. There is no rash noted. Head: Normocephalic, atraumatic Eye: Normal conjunctiva, no drainage Ears, Nose, Mouth, and Throat: oral mucosa is moist. Nares patent. Cardiovascular: Regular Rate and Rhythm Respiratory: abrasion present to the left posterior lateral lower rib region. Breath sounds are equal. Back: non-tender GI: nontender Musculoskeletal: The patient has no evidence of calf tenderness, no pitting edema, symmetrical pulses noted bilaterally Neurological: A&O, normal speech Psychiatric: Cooperative Constitutional Vital Signs, click to edit/add: Last Vital Signs Temp 97.6 F 10/22/23 11:32 Pulse 88 10/22/23 11:32 Resp 20 10/22/23 11:32 BP 124/72 10/22/23 11:32 Pulse Ox 97 10/22/23 11:32 O2 Del Method Room Air 10/22/23 11:32 Course Vital Signs Vital signs: Vital Signs Temperature 97.6 F 10/22/23 11:32 Pulse Rate 88 10/22/23 11:32 Respiratory Rate 20 10/22/23 11:32 Blood Pressure 124/72 10/22/23 11:32 Pulse Oximetry 97 10/22/23 11:32 Oxygen Delivery Method Room Air 10/22/23 11:32 Temperature 97.6 F 10/22/23 11:32 Pulse Rate 88 10/22/23 11:32 Respiratory Rate 20 10/22/23 11:32 Blood Pressure 124/72 10/22/23 11:32 Pulse Oximetry 97 10/22/23 11:32 Oxygen Delivery Method Room Air 10/22/23 11:32 MDM - Fall MDM Narrative Medical decision making narrative: a single rib fractures identified. No pneumothorax. He'll be discharged home on Percocet and was given OPEP device as well. He was instructed to see his family doctor in three days. Treatment diagnosis and follow-up were discussed with the patient. Differential Diagnosis Differential diagnosis: Likely other (rib fracture, chest wall contusion, pneumothorax) Imaging Data rib x-rays: Radiologist's impression: Procedure: XR ribs LT min 3V w CXR1V EXAMINATION: XR ribs LT min 3V w CXR1V 10/22/2023 9:27 AM PST HISTORY: fall COMPARISONS: Chest x-ray 08/30/2023 FINDINGS: Lines and tubes: Stable cardiac pulse generator and leads. Heart and mediastinum: Similar. Lungs and pleura: Small patchy opacity in the right base. There is mild vascular engorgement. There is no pleural effusion or pneumothorax. Bones: No acute osseous abnormality. LEFT RIBS: Mildly distracted fracture of the lateral left 10th rib. Healed fracture of the left ninth rib. IMPRESSION: 1. Borderline pulmonary edema. Small patchy opacity in the right base which could represent atelectasis, aspiration, or pneumonia in the appropriate clinical context. 2. Mildly displaced fracture of the left 10th rib. Electronically authenticated by: MAURO DOMINGUEZ Date: 10/22/2023 12:30 Discharge Plan Discharge Chief Complaint: Fall Clinical Impression: Left rib fracture Patient Disposition: Home, Self-Care Time of Disposition Decision: 12:48 Condition: Good Mode of Transportation: Private Vehicle Prescriptions / Home Meds: New oxycodone-acetaminophen [Percocet] 5-325 mg tablet 1 tab PO Q6H PRN (Reason: pain) 5 Days Qty: 20 0RF No Action atorvastatin 80 mg tablet 80 mg PO DAILY carvedilol 25 mg tablet 25 mg PO Q12H Farxiga 10 mg tablet 10 mg PO DAILY aspirin [Adult Low Dose Aspirin] 81 mg tablet,delayed release (DR/EC) 81 mg PO DAILY hydrocodone-acetaminophen 5-325 mg tablet 1 tab PO Q8H PRN (Reason: pain, moderate) gabapentin 400 mg capsule 400 mg PO Q12H spironolactone 25 mg tablet 25 mg PO QAM levothyroxine 50 mcg tablet 50 mcg PO .ACB isosorbide dinitrate 20 mg tablet 20 mg PO BIDWM digoxin 125 mcg (0.125 mg) tablet 0.125 mg PO QDAY potassium chloride [Klor-Con M10] 10 mEq Tablet,Er Particles/Crystals 20 meq PO TID Qty: 90 11RF bumetanide 2 mg tablet 2 mg PO BID Qty: 60 0RF warfarin 2.5 mg tablet 2.5 mg PO DAILY Patient Comments: DIRECTED BY CLINIC nitroglycerin 0.4 mg tablet, sublingual 0.4 mg sublingual Q5M PRN (Reason: chest pain) hydralazine 50 mg tablet 50 mg PO Q8H Rx Instructions: PER RETAIL FILL HX - LAST FILLED 02/20/23 #270 FOR A 90 DAY SUPPLY cyanocobalamin (vitamin B-12) 1,000 mcg tablet extended release 1,000 mcg PO DAILY amitriptyline 25 mg tablet 25 mg PO .COMPLEX PRN (Reason: sleep) Rx Instructions: 25 mg orally nightly; PER RETAIL FILL HX - LAST FILLED 01/30/23 #90 FOR A 90 DAY SUPPLY PRN; metolazone 2.5 mg Tablet 2.5 mg PO DAILY Instructions: Rib Fracture (ED) Additional Instructions: see your family doctor in three days Stand Alone Forms: Portal Instructions Referrals: VINNIE STEWART [Primary Care Provider] - 1 week
[2023-10-22] MEDS: HYDROCODONE/ACET 5-325 MG TABLET 1 TAB PO (12:36)
== END 2023-10-22 13:22 | disposition home or self-care (01) ==
PROVIDERS: Emergency Provider Emergency Medicine; PCP Family Medicine
DX: S22.32XA Fracture of one rib, left side, initial encounter for closed fracture (principal); Z79.82 Long term (current) use of aspirin; Z79.899 Other long term (current) drug therapy; Z79.01 Long term (current) use of anticoagulants; N18.9 Chronic kidney disease, unspecified; D63.1 Anemia in chronic kidney disease; I25.10 Atherosclerotic heart disease of native coronary artery without angina pectoris; Z95.810 Presence of automatic (implantable) cardiac defibrillator; I50.22 Chronic systolic (congestive) heart failure; I13.0 Hypertensive heart and chronic kidney disease with heart failure and stage 1 through stage 4 chronic kidney disease, or unspecified chronic kidney disease; J44.9 Chronic obstructive pulmonary disease, unspecified; E78.5 Hyperlipidemia, unspecified; E03.9 Hypothyroidism, unspecified; I48.0 Paroxysmal atrial fibrillation; W18.2XXA Fall in (into) shower or empty bathtub, initial encounter; Z87.01 Personal history of pneumonia (recurrent); E11.22 Type 2 diabetes mellitus with diabetic chronic kidney disease; Z90.49 Acquired absence of other specified parts of digestive tract; Z87.891 Personal history of nicotine dependence
CPT/HCPCS: 71101; 94667; 99284

== ENCOUNTER 2023-10-29 14:12 | Outpatient (OUT) | payer MEDICARE, SELFPAY | END 2023-10-29 14:13 | disposition home or self-care (01) | LOC: WC 14:12 | PROVIDERS: PCP Family Medicine; Visit Provider Podiatrist Foot & Ankle Surgery | DX: E11.621 Type 2 diabetes mellitus with foot ulcer (principal); L97.422 Non-pressure chronic ulcer of left heel and midfoot with fat layer exposed; L97.412 Non-pressure chronic ulcer of right heel and midfoot with fat layer exposed | CPT/HCPCS: A6213; G0463 ==

== ENCOUNTER 2023-11-01 21:04 | Inpatient (IN) | payer MEDICARE, SELFPAY ==
[2023-11-01] VITALS (20 sets, daily range): BP systolic 109–149; BP diastolic 53–77; PULSE 84–92; RESP 18–32; TEMP 36.8–38.8; O2SAT 94–97
--- NOTE | 2023-11-01 21:12 | ECG_ITS ---
The [facility] Test Date: 2023-11-01 Pat Name: ADWOA PORTER Department: Room: - Gender: Male [employer]: : 1955 Requested By: [id number] Order Number: [id number] Reading MD: MIESHA LOCKE Measurements Intervals [place] Rate: 88 P: -98368 VT: -89127 QRS: -87 QRSD: 130 T: 80 QT: 380 QTc: 426 Interpretive Statements 97363 Electronic ventricular pacemaker 9120 atypical ECG Compared to ECG 08/30/2023 10:00:39 No significant changes Electronically Signed On 11-02-2023 7:15:47 EST by MIESHA LOCKE
--- NOTE | 2023-11-01 21:12 | CT_ITS ---
The [address] [address] Patient Name: ADWOA PORTER MRN: [id number] date: 1955 Sex: M Assigned Patient Location: ED.MAIN Current Patient Location: ED.MAIN Accession/Order Number: [id number] Exam Date: 11/01/2023 21:20 Report Date: 11/01/2023 21:58 At the request of: ALMA DELIA CHAVIS Procedure: CT stroke head/brain wo con EXAM: CT stroke head/brain wo con HISTORY: altered mental status COMPARISON: CT head 08/30/2023 TECHNIQUE: CT head without contrast. Multiplanar reformats obtained. The current study utilizes one or more of the following dose-reduction techniques: automated exposure control, iterative reconstruction, and/or manual adjustment of tube current and voltage for size. FINDINGS: Encephalomalacia in the high right frontal lobe, superior frontal gyrus, unchanged. Encephalomalacia in the left posterior frontal, parietal temporal lobe, unchanged. No acute intracranial hemorrhage. No midline shift. Ventricles reflect volume loss. Prior lens replacement. No displaced skull fracture. Mastoid air cells clear. Imaged paranasal sinuses clear. CT/CT stroke head/brain wo con IMPRESSION: No acute intracranial findings. CT is insensitive for acute infarct. Volume loss, remote infarcts, and presumed chronic white matter microangiopathic changes. Electronically authenticated by: SABA BOLDEN Date: 11/01/2023 21:58
--- NOTE | 2023-11-01 21:14 | CT_ITS ---
[address] [address] Patient Name: ADWOA PORTER MRN: [id number] date: 1955 Sex: M Assigned Patient Location: .MAIN Current Patient Location: Accession/Order Number: [id number] Exam Date: 11/01/2023 21:30 Report Date: 11/01/2023 22:02 At the request of: ALMA DELIA CHAVIS Procedure: CT cervical spine wo con CT cervical spine wo con INDICATION: 68 years old; Male . CLINICAL HISTORY: altered mental status TECHNIQUE: CT imaging of the cervical spine was performed. IV contrast: None. Dose reduction techniques were achieved by using automated exposure control and/or adjustment of mA and/or kV according to patient size and/or use of iterative reconstruction technique. COMPARISON: CT dated 07/12/2023. FINDINGS: POSTOPERATIVE CHANGES: None. ALIGNMENT: Nonspecific straightening of the normal cervical curve. COMPRESSION FRACTURES: No fracture or vertebral body collapse. No bone displacement. No asymmetric widening of the facets. No bone destruction. PREVERTEBRAL SOFT TISSUES: Normal. CRANIOCERVICAL JUNCTION: There is a normal relationship of the occipital condyles, lateral masses of C1, and articular surfaces of C2. The base of the dens and body of C2 are intact. There is narrowing of the predental space with spurring arising from the anterior arch of C1 and the dens. POSTERIOR FOSSA: Cerebellar tonsils are above the foramen magnum. Calcification is seen in the V4 segments of vertebral arteries. Disc levels: C2-C3: Disc space narrowing, disc bulging, endplate osteophyte formation, with facet degeneration and uncovertebral joint degeneration worse on the left. Central canal patent. Mild left foraminal stenosis. C3-C4: Disc space narrowing posteriorly. Disc bulging and endplate osteophyte formation. Facet degeneration and uncovertebral joint degeneration worse on the left than the right. Mild central canal stenosis. Moderate left foraminal stenosis. C4-C5: Disc space narrowing. Central and left-sided protrusion type disc herniation. There is Beam hardening artifacts which obscure detail in the axial images. Question cord compression. Recommend MRI follow-up. Uncovertebral joint degeneration and facet degeneration on the left. Severe left foraminal stenosis. C5-C6: Disc space narrowing, disc bulging, and endplate osteophyte formation. Uncovertebral joint degeneration. Bulky bridging anterior osteophytes. Mild central canal stenosis. Mild left foraminal stenosis. C6-C7: Disc space narrowing. Disc bulging and endplate osteophyte formation with uncovertebral joint degeneration bilaterally. The canal is patent. Mild to moderate bilateral foraminal stenosis. C7-T1: Disc space narrowing, disc bulging, and endplate osteophyte formation. Chronic Schmorl's node formation arising from the superior endplate of T1. Central canal patent. Neural foramina patent. UPPER THORACIC SPINE: At T1-T2, no focal disc herniation or bulging. Bony canal is patent. OTHER: Tiny hypodense nodule in the left lobe of the thyroid. This measures 3.39 x 3.56 mm in diameter, image 63/series 4. This is unchanged from the prior examination. Consider nonemergent thyroid ultrasound. CT/CT cervical spine wo con IMPRESSION: 1. No acute fracture or vertebral body collapse. 2. Multilevel cervical spondylosis. There is a superimposed disc herniation at the C4-C5 level. Allowing for Beam hardening artifacts, there is question of cord compression. This appears worsened as compared to the prior examination. If there is concern for myelopathy, recommend follow-up with MRI. Electronically authenticated by: MARY HENDRIX Date: 11/01/2023 22:02
--- NOTE | 2023-11-01 21:16 | ED_ITS ---
Documented by User: KAILEY Castillo 11/01/23 21:55 HPI - Altered Mental Status General Stated Complaint: ALTERED Time Seen by Provider: 11/01/23 21:12 Source: patient Mode of arrival: ambulance History of Present Illness HPI narrative: Patient is a 68-year-old male well-known to this emergency department with multiple medical conditions brought in by ambulance for apparent aphasia immediately following dinner this evening. EMS reports that the patient's significant other called 911 after dinner because the patient stopped speaking and seemed altered. He has been having falls recently, he was seen in this emergency department on 10/22/2023 for a left 10th rib fracture after a fall. He is anticoagulated with Coumadin and is noted to have a large area of ecchymosis to the left flank. At initial interview, patient follows some commands and nods/shakes his head but he is totally nonverbal. Related Data Home Medications Medication Instructions Recorded Confirmed aspirin 81 mg tablet,delayed 81 mg PO DAILY 05/24/23 10/22/23 release (Adult Low Dose Aspirin) atorvastatin 80 mg tablet 80 mg PO DAILY 05/24/23 10/22/23 carvedilol 25 mg tablet 25 mg PO Q12H 05/24/23 10/22/23 dapagliflozin propanediol 10 mg 10 mg PO DAILY 05/24/23 10/22/23 tablet (Farxiga) digoxin 125 mcg (0.125 mg) tablet 0.125 mg PO QDAY 05/24/23 10/22/23 gabapentin 400 mg capsule 400 mg PO Q12H 05/24/23 10/22/23 hydrocodone 5 mg-acetaminophen 325 1 tab PO Q8H PRN pain, moderate 05/24/23 10/22/23 mg tablet isosorbide dinitrate 20 mg tablet 20 mg PO BIDWM 05/24/23 10/22/23 levothyroxine 50 mcg tablet 50 mcg PO .ACB 05/24/23 10/22/23 spironolactone 25 mg tablet 25 mg PO QAM 05/24/23 10/22/23 amitriptyline 25 mg tablet 25 mg PO .COMPLEX PRN sleep 06/02/23 08/21/23 cyanocobalamin (vitamin B-12) 1,000 mcg PO DAILY 06/02/23 10/22/23 1,000 mcg tablet,extended release hydralazine 50 mg tablet 50 mg PO Q8H 06/02/23 10/22/23 metolazone 2.5 mg tablet 2.5 mg PO DAILY 06/02/23 10/22/23 nitroglycerin 0.4 mg sublingual 0.4 mg sublingual Q5M PRN chest 06/02/23 10/22/23 tablet pain warfarin 2.5 mg tablet 2.5 mg PO DAILY 06/02/23 10/22/23 Previous Rx's Medication Instructions Recorded potassium chloride 10 mEq 20 meq (2 x 10 mEq) PO TID #90 tabs 06/21/23 tablet,extended release(part/cryst) (Klor-Con M) bumetanide 2 mg tablet 2 mg PO BID #60 tabs 08/22/23 oxycodone-acetaminophen 5 mg-325 1 tab PO Q6H PRN pain 5 days #20 10/22/23 mg tablet (Percocet) tabs Allergies Allergy/AdvReac Type Severity Reaction Status Date / Time GABRIELA Inhibitors AdvReac Mild COUGH Verified 10/22/23 11:31 Review of Systems ROS Status of ROS unobtainable due to medical condition and unobtainable due to mental status [facility] Medical History (Updated 11/02/23 @ 02:09 by Kelly Rogers MD) Chronic wound of extremity Dyspnea ?R06.00 - Dyspnea, unspecified (ICD-10) CKD (chronic kidney disease) stage 4, GFR 15-29 ml/min ?N18.4 - Chronic kidney disease, stage 4 (severe) (ICD-10) HLD (hyperlipidemia) ?E78.5 - Hyperlipidemia, unspecified (ICD-10) Fluid retention ?R60.9 - Edema, unspecified (ICD-10) Acute urinary retention ?R33.8 - Other retention of urine (ICD-10) Elevated INR ?R79.1 - Abnormal coagulation profile (ICD-10) Closed head injury ?S09.90XA - Unspecified injury of head, initial encounter (ICD-10) Cardiac defibrillator in place ?Z95.810 - Presence of automatic (implantable) cardiac defibrillator (ICD-10) Pacemaker ?Z95.0 - Presence of cardiac pacemaker (ICD-10) Pneumonia ?J18.9 - Pneumonia, unspecified organism (ICD-10) Ascites ?R18.8 - Other ascites (ICD-10) COPD (chronic obstructive pulmonary disease) ?J44.9 - Chronic obstructive pulmonary disease, unspecified (ICD-10) CAD (coronary artery disease) ?I25.10 - Atherosclerotic heart disease of [place] coronary artery without angina pectoris (ICD-10) Benign essential hypertension ?I10 - Essential (primary) hypertension (ICD-10) Anemia in chronic kidney disease ?N18.9 - Chronic kidney disease, unspecified (ICD-10) ?D63.1 - Anemia in chronic kidney disease (ICD-10) Paroxysmal atrial fibrillation ?I48.0 - Paroxysmal atrial fibrillation (ICD-10) Type 2 diabetes mellitus with hyperglycemia ?E11.65 - Type 2 diabetes mellitus with hyperglycemia (ICD-10) Hypothyroid ?E03.9 - Hypothyroidism, unspecified (ICD-10) Chronic kidney disease, stage 3a ?N18.31 - Chronic kidney disease, stage 3a (ICD-10) Chronic HFrEF (heart failure with reduced ejection fraction) ?I50.22 - Chronic systolic (congestive) heart failure (ICD-10) Surgical History (Updated 06/20/23 @ 13:44 by Susanna Gill) History of appendectomy ?Z90.49 - Acquired absence of other specified parts of digestive tract (ICD- 10) Family History Mother Family history of CHF (congestive heart failure) Brother Family history of cancer Social History Within the past year, how often did you have a drink containing alcohol: never Within the past year, how often did you have six or more drinks on one occasion: never Score interpretation: A score less than 4 is consistent with normal alcohol consumption. 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 Known occupational exposures/hazards: No Highest level of school completed/degree received: high school graduate Do you want help with school or training: No Are you now , , , , never or living with a partner: living with partner In a typical week, how many times do you talk on the telephone with family, friends, or neighbors: 3 or more times per week How often do you get together with friends or relatives: 3 or more times per week How often do you attend buddhism or jewish services: never Do you belong to any clubs or organizations such as buddhism groups unions, fraternal or athletic groups, or school groups: no Total score: 2 Score interpretation: A score of greater than or equal to 2 indicates the lowest level of social isolation. Little interest or pleasure in doing things: not at all Feeling down, depressed, or hopeless: not at all Feel stressed/tense/nervous/anxious/difficulty sleeping: not at all Due to disability, difficulty making decisions: No Do you think of yourself as: straight/heterosexual Gender Identity: male Exam Narrative Exam Narrative: Gen.: Awake, alert, in no distress Head: Normocephalic, atraumatic; no obvious injury to the head or face ENT: Dry mucous membranes Respiratory: No respiratory distress, lungs clear bilaterally Cardio: Systolic murmur Gastrointestinal: Abdomen is soft, nondistended and nontender to palpation; large area of ecchymosis to the left flank with no bony point tenderness of the T-spine or L-spine Extremities: Multiple abrasions noted to the anterior tibias bilaterally, multiple toes are surgically absent from the left foot with dressings to the left ankle and right anterior tibia. Abrasions are in various stages of healing, contractures noted of the hands bilaterally Psych: Flat affect Neuro: Patient is totally aphasic, he does respond to his name, follow gaze and follow some commands. He does move his upper extremities to assist with removing his shirt but is generally weak globally Skin: Warm, dry, intact Constitutional Vital Signs, click to edit/add: Last Vital Signs Temp 101.9 F H 11/01/23 22:00 Pulse 85 11/02/23 00:45 Resp 20 11/02/23 00:45 BP 117/57 11/02/23 00:45 Pulse Ox 95 11/02/23 00:00 O2 Del Method Nasal Cannula 11/01/23 22:00 O2 Flow Rate 2 11/01/23 22:00 Course Vital Signs Vital signs: Vital Signs Blood Pressure 149/77 H 11/01/23 21:04 Temperature 101.9 F H 11/01/23 22:00 Pulse Rate 85 11/02/23 00:45 Respiratory Rate 20 11/02/23 00:45 Blood Pressure 117/57 11/02/23 00:45 Pulse Oximetry 95 11/02/23 00:00 Oxygen Delivery Method Nasal Cannula 11/01/23 22:00 Oxygen Delivery Flow Rate 2 11/01/23 22:00 MDM - Altered Mental Status MDM Narrative Medical decision making narrative: 2200: On arrival to the emergency department, patient was noted to be nonverbal and aphasic, he did respond to some commands and had stable vital signs. He was immediately taken for a CT of the brain, stroke protocol and CT of the C-spine as we suspect the patient has been falling at home. On return from CT, patient was reevaluated and he is speaking and stating his name although he continues to be less responsive than typical. A full septic workup was ordered for the patient, including ABG and he will be sent for CT of the chest abdomen and pelvis once his creatinine has resulted to rule out other traumatic injuries as he is on Coumadin. Case is turned over to attending physician at this time for reevaluation and disposition. Medical Records Attestation: I reviewed the patient's medical records. Lab Data Attestation: I reviewed the patient's lab results. Labs: Lab Results 11/01/23 11/01/23 11/01/23 Range/Units 21:20 21:47 21:48 WBC 19.5 H (4.0-11.0) 10^3/uL RBC 4.96 (4.70-6.10) 10^6/uL Hgb 14.3 (14.0-18.0) g/dL Hct 42.7 (42.0-54.0) % MCV 86.1 (80.0-94.0) fL MCH 28.8 (25.9-34.0) pg MCHC 33.5 (29.9-35.2) g/dL RDW 16.8 H (11.0-15.0) % Plt Count 256 (150-450) 10^3/uL MPV 9.9 (9.5-13.5) fL Neut % (Auto) 82.9 H (43.0-75.0) % Lymph % (Auto) 8.1 L (20.5-60.0) % Chase % (Auto) 6.2 (1.7-12.0) % Eos % (Auto) 1.5 (0.9-7.0) % Baso % (Auto) 0.3 (0.2-2.0) % Neut # (Auto) 16.1 H (1.4-6.5) 10^3/uL Lymph # (Auto) 1.6 (1.2-3.8) 10^3/uL Chase # (Auto) 1.2 H (0.3-0.8) 10^3/uL Eos # (Auto) 0.3 (0.0-0.7) 10^3/uL Baso # (Auto) 0.1 (0.0-0.1) 10^3/uL Abs Immat Gran (auto) 0.20 H (0.00-0.03) 10^3/uL Imm/Tot Granulo (auto) 1.0 H (0.0-0.5) % PT 12.9 H (9.0-11.6) sec INR 1.23 Puncture Site R radial ABG pH 7.482 H (7.350-7.450) ABG pCO2 39.1 (35.0-45.0) mmHg ABG pO2 55.0 L (80.0-100.0) mmHg ABG HCO3 29.2 H (22.0-26.0) mmol/L ABG O2 Saturation 89.7 % ABG Base Excess 5.7 H (-2.0-2.0) mmol/L Callum Test Positive (POSITIVE) Sodium 124 L* (136-145) mmol/L Potassium 3.2 L (3.5-5.1) mmol/L Chloride 84 L* (98-107) mmol/L Carbon Dioxide 30.1 (21.0-32.0) mmol/L Anion Gap 13.1 BUN 46.0 H (7.0-18.0) mg/dL Creatinine 1.91 H (0.70-1.30) mg/dL Est GFR ( Amer) 43 L (>=60) Est GFR (Non-Af Amer) 35 L (>=60) BUN/Creatinine Ratio 24.1 Glucose 419 H (74-106) mg/dL Lactate 2.8 H* (0.4-2.0) mmol/L Calcium 8.6 (8.5-10.1) mg/dL Total Bilirubin 1.5 H (0.2-1.0) mg/dL AST 39 H (15-37) U/L ALT 26 (16-63) U/L Alkaline Phosphatase 151 H (46-116) U/L Ammonia 36 H (11-32) umol/L Troponin I High Sens 25.9 (4.0-76.1) pg/mL Total Protein 8.4 H (6.4-8.2) g/dL Albumin 3.5 (3.4-5.0) g/dL Globulin 4.9 g/dL Albumin/Globulin Ratio 0.7 TSH 1.976 (0.358-3.740) uIU/mL Urine Color (YELLOW) Urine Clarity (CLEAR) Urine pH (5.0-9.0) Ur Specific [place] (1.005-1.025) Urine Protein (NEG/TRACE) mg/dL Urine Glucose (UA) (NEGATIVE) mg/dL Urine Ketones (NEGATIVE) mg/dL Urine Occult Blood (NEGATIVE) Urine Nitrite (NEGATIVE) Urine Bilirubin (NEGATIVE) Urine Urobilinogen (0.2-1.0) EU/dL Ur Leukocyte Esterase (NEGATIVE) Digoxin 0.8 L (0.9-2.0) ng/mL Urine Opiates Screen (NEGATIVE) Ur Buprenorphine Scrn (NEGATIVE) Ur Oxycodone Screen (NEGATIVE) Urine Methadone Screen (NEGATIVE) Ur Barbiturates Screen (NEGATIVE) U Tricyclic Antidepress (NEGATIVE) Ur Phencyclidine Scrn (NEGATIVE) Ur Amphetamines Screen (NEGATIVE) U Methamphetamines Scrn (NEGATIVE) U Benzodiazepines Scrn (NEGATIVE) Urine Cocaine Screen (NEGATIVE) U Cannabinoids Screen (NEGATIVE) Ethanol Quant <3 mg/dL Adenovirus (PCR) (NOT DETECTE) C. pneumoniae DNA (PCR) (NOT DETECTE) Coronavirus Type OC43 (NOT DETECTE) Coronavirus Type HKU1 (NOT DETECTE) Coronavirus Type 229E (NOT DETECTE) Coronavirus Type NL63 (NOT DETECTE) Human Metapneumovir PCR (NOT DETECTE) M. pneumoniae (PCR) (NOT DETECTE) Parainfluenza PCR (NOT DETECTE) Parainfluenza 2 (PCR) (NOT DETECTE) Parainfluenza 3 (PCR) (NOT DETECTE) Parainfluenza 4 (PCR) (NOT DETECTE) RSV (RT-PCR) (NOT DETECTE) Entero/Rhino (PCR) (NOT DETECTE) SARS-CoV-2 (PCR) (NOT DETECTE) Bordetella pertussis (PCR) (NOT DETECTE) B parapertussis DNA PCR (NOT DETECTE) Influenza Type A (PCR) (NOT DETECTE) Influenza Type B (PCR) (NOT DETECTE) POC Glucose 432 H (74-106) mg/dL 11/01/23 11/01/23 11/02/23 Range/Units 21:55 22:16 00:32 WBC (4.0-11.0) 10^3/uL RBC (4.70-6.10) 10^6/uL Hgb (14.0-18.0) g/dL Hct (42.0-54.0) % MCV (80.0-94.0) fL MCH (25.9-34.0) pg MCHC (29.9-35.2) g/dL RDW (11.0-15.0) % Plt Count (150-450) 10^3/uL MPV (9.5-13.5) fL Neut % (Auto) (43.0-75.0) % Lymph % (Auto) (20.5-60.0) % [place] % (Auto) (1.7-12.0) % Eos % (Auto) (0.9-7.0) % Baso % (Auto) (0.2-2.0) % Neut # (Auto) (1.4-6.5) 10^3/uL Lymph # (Auto) (1.2-3.8) 10^3/uL [place] # (Auto) (0.3-0.8) 10^3/uL Eos # (Auto) (0.0-0.7) 10^3/uL Baso # (Auto) (0.0-0.1) 10^3/uL Abs Immat Gran (auto) (0.00-0.03) 10^3/uL Imm/Tot Granulo (auto) (0.0-0.5) % PT (9.0-11.6) sec INR Puncture Site ABG pH (7.350-7.450) ABG pCO2 (35.0-45.0) mmHg ABG pO2 (80.0-100.0) mmHg ABG HCO3 (22.0-26.0) mmol/L ABG O2 Saturation % ABG Base Excess (-2.0-2.0) mmol/L Callum Test (POSITIVE) Sodium (136-145) mmol/L Potassium (3.5-5.1) mmol/L Chloride (98-107) mmol/L Carbon Dioxide (21.0-32.0) mmol/L Anion Gap BUN (7.0-18.0) mg/dL Creatinine (0.70-1.30) mg/dL Est GFR ( Amer) (>=60) Est GFR (Non-Af Amer) (>=60) BUN/Creatinine Ratio Glucose (74-106) mg/dL Lactate 2.3 H* (0.4-2.0) mmol/L Calcium (8.5-10.1) mg/dL Total Bilirubin (0.2-1.0) mg/dL AST (15-37) U/L ALT (16-63) U/L Alkaline Phosphatase (46-116) U/L Ammonia (11-32) umol/L Troponin I High Sens (4.0-76.1) pg/mL Total Protein (6.4-8.2) g/dL Albumin (3.4-5.0) g/dL Globulin g/dL Albumin/Globulin Ratio TSH (0.358-3.740) uIU/mL Urine Color Lt. yellow (YELLOW) Urine Clarity Clear (CLEAR) Urine pH 6.0 (5.0-9.0) Ur Specific [place] 1.010 (1.005-1.025) Urine Protein Negative (NEG/TRACE) mg/dL Urine Glucose (UA) >=1000 A (NEGATIVE) mg/dL Urine Ketones Negative (NEGATIVE) mg/dL Urine Occult Blood Negative (NEGATIVE) Urine Nitrite Negative (NEGATIVE) Urine Bilirubin Negative (NEGATIVE) Urine Urobilinogen 0.2 (0.2-1.0) EU/dL Ur Leukocyte Esterase Negative (NEGATIVE) Digoxin (0.9-2.0) ng/mL Urine Opiates Screen Positive A (NEGATIVE) Ur Buprenorphine Scrn Negative (NEGATIVE) Ur Oxycodone Screen Negative (NEGATIVE) Urine Methadone Screen Negative (NEGATIVE) Ur Barbiturates Screen Negative (NEGATIVE) U Tricyclic Antidepress Negative (NEGATIVE) Ur Phencyclidine Scrn Negative (NEGATIVE) Ur Amphetamines Screen Negative (NEGATIVE) U Methamphetamines Scrn Negative (NEGATIVE) U Benzodiazepines Scrn Negative (NEGATIVE) Urine Cocaine Screen Negative (NEGATIVE) U Cannabinoids Screen Negative (NEGATIVE) Ethanol Quant mg/dL Adenovirus (PCR) Not detected (NOT DETECTE) C. pneumoniae DNA (PCR) Not detected (NOT DETECTE) Coronavirus Type OC43 Not detected (NOT DETECTE) Coronavirus Type HKU1 Not detected (NOT DETECTE) Coronavirus Type 229E Not detected (NOT DETECTE) Coronavirus Type NL63 Not detected (NOT DETECTE) Human Metapneumovir PCR Not detected (NOT DETECTE) M. pneumoniae (PCR) Not detected (NOT DETECTE) Parainfluenza PCR Not detected (NOT DETECTE) Parainfluenza 2 (PCR) Not detected (NOT DETECTE) Parainfluenza 3 (PCR) Not detected (NOT DETECTE) Parainfluenza 4 (PCR) Not detected (NOT DETECTE) RSV (RT-PCR) Not detected (NOT DETECTE) Entero/Rhino (PCR) Not detected (NOT DETECTE) SARS-CoV-2 (PCR) Not detected (NOT DETECTE) Bordetella pertussis (PCR) Not detected (NOT DETECTE) B parapertussis DNA PCR Not detected (NOT DETECTE) Influenza Type A (PCR) Not detected (NOT DETECTE) Influenza Type B (PCR) Not detected (NOT DETECTE) POC Glucose (74-106) mg/dL ABG Data Attestation: I have reviewed the pertinent ABG results. Imaging Data CT scan - head: Attestation: I have reviewed the pertinent imaging results. Discharge Plan Discharge Clinical Impression: Altered mental status, Hyperglycemia due to diabetes mellitus, Left rib fracture, Generalized weakness, Multifocal pneumonia, Hypokalemia Patient Disposition: Admitted As Inpatient Time of Disposition Decision: 02:08 Condition: Fair Documented by User: Kelly Rogers MD 11/02/23 02:09 HPI - Altered Mental Status General Stated Complaint: ALTERED Time Seen by Provider: 11/01/23 21:12 Related Data Home Medications Medication Instructions Recorded Confirmed aspirin 81 mg tablet,delayed 81 mg PO DAILY 05/24/23 10/22/23 release (Adult Low Dose Aspirin) atorvastatin 80 mg tablet 80 mg PO DAILY 05/24/23 10/22/23 carvedilol 25 mg tablet 25 mg PO Q12H 05/24/23 10/22/23 dapagliflozin propanediol 10 mg 10 mg PO DAILY 05/24/23 10/22/23 tablet (Farxiga) digoxin 125 mcg (0.125 mg) tablet 0.125 mg PO QDAY 05/24/23 10/22/23 gabapentin 400 mg capsule 400 mg PO Q12H 05/24/23 10/22/23 hydrocodone 5 mg-acetaminophen 325 1 tab PO Q8H PRN pain, moderate 05/24/23 10/22/23 mg tablet isosorbide dinitrate 20 mg tablet 20 mg PO BIDWM 05/24/23 10/22/23 levothyroxine 50 mcg tablet 50 mcg PO .ACB 05/24/23 10/22/23 spironolactone 25 mg tablet 25 mg PO QAM 05/24/23 10/22/23 amitriptyline 25 mg tablet 25 mg PO .COMPLEX PRN sleep 06/02/23 08/21/23 cyanocobalamin (vitamin B-12) 1,000 mcg PO DAILY 06/02/23 10/22/23 1,000 mcg tablet,extended release hydralazine 50 mg tablet 50 mg PO Q8H 06/02/23 10/22/23 metolazone 2.5 mg tablet 2.5 mg PO DAILY 06/02/23 10/22/23 nitroglycerin 0.4 mg sublingual 0.4 mg sublingual Q5M PRN chest 06/02/23 10/22/23 tablet pain warfarin 2.5 mg tablet 2.5 mg PO DAILY 06/02/23 10/22/23 Previous Rx's Medication Instructions Recorded potassium chloride 10 mEq 20 meq (2 x 10 mEq) PO TID #90 tabs 06/21/23 tablet,extended release(part/cryst) (Klor-Con M) bumetanide 2 mg tablet 2 mg PO BID #60 tabs 08/22/23 oxycodone-acetaminophen 5 mg-325 1 tab PO Q6H PRN pain 5 days #20 10/22/23 mg tablet (Percocet) tabs Allergies Allergy/AdvReac Type Severity Reaction Status Date / Time GABRIELA Inhibitors AdvReac Mild COUGH Verified 10/22/23 11:31 [facility] Medical History (Updated 11/02/23 @ 02:09 by Kelly Rogers MD) Chronic wound of extremity Dyspnea ?R06.00 - Dyspnea, unspecified (ICD-10) CKD (chronic kidney disease) stage 4, GFR 15-29 ml/min ?N18.4 - Chronic kidney disease, stage 4 (severe) (ICD-10) HLD (hyperlipidemia) ?E78.5 - Hyperlipidemia, unspecified (ICD-10) Fluid retention ?R60.9 - Edema, unspecified (ICD-10) Acute urinary retention ?R33.8 - Other retention of urine (ICD-10) Elevated INR ?R79.1 - Abnormal coagulation profile (ICD-10) Closed head injury ?S09.90XA - Unspecified injury of head, initial encounter (ICD-10) Cardiac defibrillator in place ?Z95.810 - Presence of automatic (implantable) cardiac defibrillator (ICD-10) Pacemaker ?Z95.0 - Presence of cardiac pacemaker (ICD-10) Pneumonia ?J18.9 - Pneumonia, unspecified organism (ICD-10) Ascites ?R18.8 - Other ascites (ICD-10) COPD (chronic obstructive pulmonary disease) ?J44.9 - Chronic obstructive pulmonary disease, unspecified (ICD-10) CAD (coronary artery disease) ?I25.10 - Atherosclerotic heart disease of [place] coronary artery without angina pectoris (ICD-10) Benign essential hypertension ?I10 - Essential (primary) hypertension (ICD-10) Anemia in chronic kidney disease ?N18.9 - Chronic kidney disease, unspecified (ICD-10) ?D63.1 - Anemia in chronic kidney disease (ICD-10) Paroxysmal atrial fibrillation ?I48.0 - Paroxysmal atrial fibrillation (ICD-10) Type 2 diabetes mellitus with hyperglycemia ?E11.65 - Type 2 diabetes mellitus with hyperglycemia (ICD-10) Hypothyroid ?E03.9 - Hypothyroidism, unspecified (ICD-10) Chronic kidney disease, stage 3a ?N18.31 - Chronic kidney disease, stage 3a (ICD-10) Chronic HFrEF (heart failure with reduced ejection fraction) ?I50.22 - Chronic systolic (congestive) heart failure (ICD-10) Surgical History (Updated 06/20/23 @ 13:44 by Susanna Gill) History of appendectomy ?Z90.49 - Acquired absence of other specified parts of digestive tract (ICD- 10) Family History Mother Family history of CHF (congestive heart failure) Brother Family history of cancer Social History Within the past year, how often did you have a drink containing alcohol: never Within the past year, how often did you have six or more drinks on one occasion: never Score interpretation: A score less than 4 is consistent with normal alcohol consumption. 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 Known occupational exposures/hazards: No Highest level of school completed/degree received: high school graduate Do you want help with school or training: No Are you now , , , , never or living with a partner: living with partner In a typical week, how many times do you talk on the telephone with family, friends, or neighbors: 3 or more times per week How often do you get together with friends or relatives: 3 or more times per week How often do you attend buddhism or jewish services: never Do you belong to any clubs or organizations such as buddhism groups unions, fraternal or athletic groups, or school groups: no Total score: 2 Score interpretation: A score of greater than or equal to 2 indicates the lowest level of social isolation. Little interest or pleasure in doing things: not at all Feeling down, depressed, or hopeless: not at all Feel stressed/tense/nervous/anxious/difficulty sleeping: not at all Due to disability, difficulty making decisions: No Do you think of yourself as: straight/heterosexual Gender Identity: male Exam Constitutional Vital Signs, click to edit/add: Last Vital Signs Temp 101.9 F H 11/01/23 22:00 Pulse 85 11/02/23 00:45 Resp 20 11/02/23 00:45 BP 117/57 11/02/23 00:45 Pulse Ox 95 11/02/23 00:00 O2 Del Method Nasal Cannula 11/01/23 22:00 O2 Flow Rate 2 11/01/23 22:00 Course Vital Signs Vital signs: Vital Signs Blood Pressure 149/77 H 11/01/23 21:04 Temperature 101.9 F H 11/01/23 22:00 Pulse Rate 85 11/02/23 00:45 Respiratory Rate 20 11/02/23 00:45 Blood Pressure 117/57 11/02/23 00:45 Pulse Oximetry 95 11/02/23 00:00 Oxygen Delivery Method Nasal Cannula 11/01/23 22:00 Oxygen Delivery Flow Rate 2 11/01/23 22:00 MDM - Altered Mental Status MDM Narrative Medical decision making narrative: 2199: On arrival to the emergency department, patient was noted to be nonverbal and aphasic, he did respond to some commands and had stable vital signs. He was immediately taken for a CT of the brain, stroke protocol and CT of the C-spine as we suspect the patient has been falling at home. On return from CT, patient was reevaluated and he is speaking and stating his name although he continues to be less responsive than typical. A full septic workup was ordered for the patient, including ABG and he will be sent for CT of the chest abdomen and pelvis once his creatinine has resulted to rule out other traumatic injuries as he is on Coumadin. Case is turned over to attending physician at this time for reevaluation and disposition. Patient was seen and evaluated in conjunction with the physician research program assistant. He presents with an episode of altered mental status. According to his he was speaking to her on the phone and then when she got home he was nonverbal. He was immediately taken for CT scan of the brain which was negative for acute findings. After he returned from CT scan he was able to say his name and follow commands. Rectal temperature was performed and he has a fever of 101.9. An IV was placed and a septic workup including 2 sets of blood cultures, lactic acid, urinalysis and routine blood work was ordered. He has an elevated white count 19.5. His initial lactic acid was also elevated at 2.8. He was given IV fluids and Tylenol. Blood gas did not show any severe hypoxia and pH was mildly elevated 7.482. Has a low sodium at 124. He was mildly low at 3.2. BUN and creatinine are mildly elevated at 46 and 1.91. He was Given IV fluids and CT scan of the chest abdomen pelvis was ordered. CT scan of the chest shows acute displaced fractures involving the left posterior 10th through 12th ribs with underlying small layering pleural effusion. There was no pneumothorax. Patchy infiltrates in the right middle lobe and bilateral lower lobes also noted favoring multifocal pneumonia. No other acute findings in the chest were noted. There was nonspecific mediastinal adenopathy possibly reactive. A respiratory panel was negative and his urine was negative for infection. His fever and altered mental status likely related to the multifocal pneumonia. He received IV fluids, IV potassium replacement and IV Zosyn for the multifocal pneumonia. His neurologic status has not declined or change from an emergency department. He is sleeping and arousable with no gross focal deficits. Case was discussed with the hospitalist and the patient accepted for admission to the ICU. Lab Data Labs: Lab Results 11/01/23 11/01/23 11/01/23 Range/Units 21:20 21:47 21:48 WBC 19.5 H (4.0-11.0) 10^3/uL RBC 4.96 (4.70-6.10) 10^6/uL Hgb 14.3 (14.0-18.0) g/dL Hct 42.7 (42.0-54.0) % MCV 86.1 (80.0-94.0) fL MCH 28.8 (25.9-34.0) pg MCHC 33.5 (29.9-35.2) g/dL RDW 16.8 H (11.0-15.0) % Plt Count 256 (150-450) 10^3/uL MPV 9.9 (9.5-13.5) fL Neut % (Auto) 82.9 H (43.0-75.0) % Lymph % (Auto) 8.1 L (20.5-60.0) % Chase % (Auto) 6.2 (1.7-12.0) % Eos % (Auto) 1.5 (0.9-7.0) % Baso % (Auto) 0.3 (0.2-2.0) % Neut # (Auto) 16.1 H (1.4-6.5) 10^3/uL Lymph # (Auto) 1.6 (1.2-3.8) 10^3/uL Chase # (Auto) 1.2 H (0.3-0.8) 10^3/uL Eos # (Auto) 0.3 (0.0-0.7) 10^3/uL Baso # (Auto) 0.1 (0.0-0.1) 10^3/uL Abs Immat Gran (auto) 0.20 H (0.00-0.03) 10^3/uL Imm/Tot Granulo (auto) 1.0 H (0.0-0.5) % PT 12.9 H (9.0-11.6) sec INR 1.23 Puncture Site R radial ABG pH 7.482 H (7.350-7.450) ABG pCO2 39.1 (35.0-45.0) mmHg ABG pO2 55.0 L (80.0-100.0) mmHg ABG HCO3 29.2 H (22.0-26.0) mmol/L ABG O2 Saturation 89.7 % ABG Base Excess 5.7 H (-2.0-2.0) mmol/L Callum Test Positive (POSITIVE) Sodium 124 L* (136-145) mmol/L Potassium 3.2 L (3.5-5.1) mmol/L Chloride 84 L* (98-107) mmol/L Carbon Dioxide 30.1 (21.0-32.0) mmol/L Anion Gap 13.1 BUN 46.0 H (7.0-18.0) mg/dL Creatinine 1.91 H (0.70-1.30) mg/dL Est GFR ( Amer) 43 L (>=60) Est GFR (Non-Af Amer) 35 L (>=60) BUN/Creatinine Ratio 24.1 Glucose 419 H (74-106) mg/dL Lactate 2.8 H* (0.4-2.0) mmol/L Calcium 8.6 (8.5-10.1) mg/dL Total Bilirubin 1.5 H (0.2-1.0) mg/dL AST 39 H (15-37) U/L ALT 26 (16-63) U/L Alkaline Phosphatase 151 H (46-116) U/L Ammonia 36 H (11-32) umol/L Troponin I High Sens 25.9 (4.0-76.1) pg/mL Total Protein 8.4 H (6.4-8.2) g/dL Albumin 3.5 (3.4-5.0) g/dL Globulin 4.9 g/dL Albumin/Globulin Ratio 0.7 TSH 1.976 (0.358-3.740) uIU/mL Urine Color (YELLOW) Urine Clarity (CLEAR) Urine pH (5.0-9.0) Ur Specific [place] (1.005-1.025) Urine Protein (NEG/TRACE) mg/dL Urine Glucose (UA) (NEGATIVE) mg/dL Urine Ketones (NEGATIVE) mg/dL Urine Occult Blood (NEGATIVE) Urine Nitrite (NEGATIVE) Urine Bilirubin (NEGATIVE) Urine Urobilinogen (0.2-1.0) EU/dL Ur Leukocyte Esterase (NEGATIVE) Digoxin 0.8 L (0.9-2.0) ng/mL Urine Opiates Screen (NEGATIVE) Ur Buprenorphine Scrn (NEGATIVE) Ur Oxycodone Screen (NEGATIVE) Urine Methadone Screen (NEGATIVE) Ur Barbiturates Screen (NEGATIVE) U Tricyclic Antidepress (NEGATIVE) Ur Phencyclidine Scrn (NEGATIVE) Ur Amphetamines Screen (NEGATIVE) U Methamphetamines Scrn (NEGATIVE) U Benzodiazepines Scrn (NEGATIVE) Urine Cocaine Screen (NEGATIVE) U Cannabinoids Screen (NEGATIVE) Ethanol Quant <3 mg/dL Adenovirus (PCR) (NOT DETECTE) C. pneumoniae DNA (PCR) (NOT DETECTE) Coronavirus Type OC43 (NOT DETECTE) Coronavirus Type HKU1 (NOT DETECTE) Coronavirus Type 229E (NOT DETECTE) Coronavirus Type NL63 (NOT DETECTE) Human Metapneumovir PCR (NOT DETECTE) M. pneumoniae (PCR) (NOT DETECTE) Parainfluenza PCR (NOT DETECTE) Parainfluenza 2 (PCR) (NOT DETECTE) Parainfluenza 3 (PCR) (NOT DETECTE) Parainfluenza 4 (PCR) (NOT DETECTE) RSV (RT-PCR) (NOT DETECTE) Entero/Rhino (PCR) (NOT DETECTE) SARS-CoV-2 (PCR) (NOT DETECTE) Bordetella pertussis (PCR) (NOT DETECTE) B parapertussis DNA PCR (NOT DETECTE) Influenza Type A (PCR) (NOT DETECTE) Influenza Type B (PCR) (NOT DETECTE) POC Glucose 432 H (74-106) mg/dL 11/01/23 11/01/23 11/02/23 Range/Units 21:55 22:16 00:32 WBC (4.0-11.0) 10^3/uL RBC (4.70-6.10) 10^6/uL Hgb (14.0-18.0) g/dL Hct (42.0-54.0) % MCV (80.0-94.0) fL MCH (25.9-34.0) pg MCHC (29.9-35.2) g/dL RDW (11.0-15.0) % Plt Count (150-450) 10^3/uL MPV (9.5-13.5) fL Neut % (Auto) (43.0-75.0) % Lymph % (Auto) (20.5-60.0) % Chase % (Auto) (1.7-12.0) % Eos % (Auto) (0.9-7.0) % Baso % (Auto) (0.2-2.0) % Neut # (Auto) (1.4-6.5) 10^3/uL Lymph # (Auto) (1.2-3.8) 10^3/uL Chase # (Auto) (0.3-0.8) 10^3/uL Eos # (Auto) (0.0-0.7) 10^3/uL Baso # (Auto) (0.0-0.1) 10^3/uL Abs Immat Gran (auto) (0.00-0.03) 10^3/uL Imm/Tot Granulo (auto) (0.0-0.5) % PT (9.0-11.6) sec INR Puncture Site ABG pH (7.350-7.450) ABG pCO2 (35.0-45.0) mmHg ABG pO2 (80.0-100.0) mmHg ABG HCO3 (22.0-26.0) mmol/L ABG O2 Saturation % ABG Base Excess (-2.0-2.0) mmol/L Callum Test (POSITIVE) Sodium (136-145) mmol/L Potassium (3.5-5.1) mmol/L Chloride (98-107) mmol/L Carbon Dioxide (21.0-32.0) mmol/L Anion Gap BUN (7.0-18.0) mg/dL Creatinine (0.70-1.30) mg/dL Est GFR ( Amer) (>=60) Est GFR (Non-Af Amer) (>=60) BUN/Creatinine Ratio Glucose (74-106) mg/dL Lactate 2.3 H* (0.4-2.0) mmol/L Calcium (8.5-10.1) mg/dL Total Bilirubin (0.2-1.0) mg/dL AST (15-37) U/L ALT (16-63) U/L Alkaline Phosphatase (46-116) U/L Ammonia (11-32) umol/L Troponin I High Sens (4.0-76.1) pg/mL Total Protein (6.4-8.2) g/dL Albumin (3.4-5.0) g/dL Globulin g/dL Albumin/Globulin Ratio TSH (0.358-3.740) uIU/mL Urine Color Lt. yellow (YELLOW) Urine Clarity Clear (CLEAR) Urine pH 6.0 (5.0-9.0) Ur Specific [place] 1.010 (1.005-1.025) Urine Protein Negative (NEG/TRACE) mg/dL Urine Glucose (UA) >=1000 A (NEGATIVE) mg/dL Urine Ketones Negative (NEGATIVE) mg/dL Urine Occult Blood Negative (NEGATIVE) Urine Nitrite Negative (NEGATIVE) Urine Bilirubin Negative (NEGATIVE) Urine Urobilinogen 0.2 (0.2-1.0) EU/dL Ur Leukocyte Esterase Negative (NEGATIVE) Digoxin (0.9-2.0) ng/mL Urine Opiates Screen Positive A (NEGATIVE) Ur Buprenorphine Scrn Negative (NEGATIVE) Ur Oxycodone Screen Negative (NEGATIVE) Urine Methadone Screen Negative (NEGATIVE) Ur Barbiturates Screen Negative (NEGATIVE) U Tricyclic Antidepress Negative (NEGATIVE) Ur Phencyclidine Scrn Negative (NEGATIVE) Ur Amphetamines Screen Negative (NEGATIVE) U Methamphetamines Scrn Negative (NEGATIVE) U Benzodiazepines Scrn Negative (NEGATIVE) Urine Cocaine Screen Negative (NEGATIVE) U Cannabinoids Screen Negative (NEGATIVE) Ethanol Quant mg/dL Adenovirus (PCR) Not detected (NOT DETECTE) C. pneumoniae DNA (PCR) Not detected (NOT DETECTE) Coronavirus Type OC43 Not detected (NOT DETECTE) Coronavirus Type HKU1 Not detected (NOT DETECTE) Coronavirus Type 229E Not detected (NOT DETECTE) Coronavirus Type NL63 Not detected (NOT DETECTE) Human Metapneumovir PCR Not detected (NOT DETECTE) M. pneumoniae (PCR) Not detected (NOT DETECTE) Parainfluenza PCR Not detected (NOT DETECTE) Parainfluenza 2 (PCR) Not detected (NOT DETECTE) Parainfluenza 3 (PCR) Not detected (NOT DETECTE) Parainfluenza 4 (PCR) Not detected (NOT DETECTE) RSV (RT-PCR) Not detected (NOT DETECTE) Entero/Rhino (PCR) Not detected (NOT DETECTE) SARS-CoV-2 (PCR) Not detected (NOT DETECTE) Bordetella pertussis (PCR) Not detected (NOT DETECTE) B parapertussis DNA PCR Not detected (NOT DETECTE) Influenza Type A (PCR) Not detected (NOT DETECTE) Influenza Type B (PCR) Not detected (NOT DETECTE) POC Glucose (74-106) mg/dL Imaging Data CT scan - head: Radiologist's impression: [place] [address] CT Scan Report Signed Patient: ADWOA PORTER MR#: [id number] : 1955 Acct:[id number] Age/Sex: 68 / M ADM Date: 11/01/23 Loc: ER Attending Dr: Ordering Physician: Alm aDelia Chavis Date of Service: 11/01/23 Procedure(s): CT chest w con Accession Number(s): [id number] cc: VINNIE STEWART ~ The [address] [address] Patient Name: ADWOA PORTER MRN: [id number] date: 1955 Sex: M Assigned Patient Location: ER Current Patient Location: ER Accession/Order Number: [id number] Exam Date: 11/01/2023 23:45 Report Date: 11/02/2023 01:01 At the request of: ALMA DELIA CHAVIS Procedure: CT chest w con EXAM: CT chest w con, CT abdomen pelvis w con HISTORY: Fall, altered mental status . Right flank bruising. Kidney disease. COMPARISON: None. TECHNIQUE: IV contrast enhanced CT imaging of the chest, abdomen or pelvis was performed using 100 mL of Visipaque 270 intravenous contrast. Sagittal and coronal reconstructions are provided. Dose reduction techniques were achieved by using automated exposure control and/or adjustment of mA and/or kV according to patient size and/or use of iterative reconstruction technique. FINDINGS: CT CHEST: No mediastinal or great vessel injury is seen. The heart is mildly enlarged. There is no pericardial effusion. Prominent coronary arterial calcifications are noted. Left subclavian AICD is noted. There are prominent calcifications in the otherwise unremarkable thoracic aorta and arch vessels. There is a nonspecific 0.5 cm hypodense left thyroid lobe lesion on image 7. Mild nonspecific mediastinal adenopathy measures up to 1.8 x 1.5 cm in the pretracheal region on image 33 and 2 x 1.6 cm in the aortopulmonic window on image 32. Additional smaller nodes are present. There is a small layering left pleural effusion. Nonspecific right middle lobe patchy infiltrate favors pneumonia with milder patchy infiltrates in the bilateral lower lobes. There is respiratory motion artifact. There are acute displaced fractures involving the left posterior 10th through 12th ribs with additional nonacute fractures involving the left anterolateral fifth through ninth ribs. The bony thorax appears otherwise intact. CT ABDOMEN: There is beam attenuation artifact from the patient being scanned with his arms at his sides. No acute solid organ injury is seen. The liver, gallbladder, pancreas, spleen, and adrenal glands are unremarkable. There is cortical scarring in the right kidney. There is a 2.3 cm cortical cyst in the posterior left kidney. The kidneys are otherwise unremarkable. The nonenhanced stomach and small bowel appear normal. Severe atherosclerotic calcifications are seen in the abdomen or pelvis without aneurysm or acute vascular abnormality. There is a fat-containing umbilical hernia. CT PELVIS: No acute pelvic organ injury is seen. A Pedro catheter is noted in the urinary bladder. There are brachytherapy seeds in the mildly enlarged prostate. Mild colonic diverticulosis is noted. The pelvic small bowel loops are unremarkable. The appendix is not seen. There are fat-containing bilateral inguinal hernias. No free fluid, loculated fluid, free air, soft tissue gas or foreign body is seen in the abdomen or pelvis. There is a nonacute fracture involving the right transverse process of L1. No acute osseous findings are seen in the abdomen or pelvis. CT/CT chest w con IMPRESSION: 1. Acute displaced fractures involving the left posterior 10th through 12th ribs, with underlying small layering left pleural effusion. No pneumothorax. 2. Patchy infiltrates in the right middle lobe and bilateral lower lobes favoring multifocal pneumonia. No additional acute findings in the chest. 3. Mild nonspecific mediastinal adenopathy, possibly reactive. Attention at follow-up recommended. 4. Coronary arterial calcifications. 5. No acute findings in the abdomen or pelvis. Chronic changes are described above. ECG Data Attestation: I personally reviewed and interpreted this ECG as follows: (Paced rhythm at 88 beats for minute, left axis, no acute changes) Critical Care Time Critical Care Time Critical Care Time: Yes Total Critical Care Time: 45 Attestation: This patient was seen and evaluated and congestion with the physician research program assistant. He is admitted to the ICU Discharge Plan Discharge Clinical Impression: Altered mental status, Hyperglycemia due to diabetes mellitus, Left rib fracture, Generalized weakness, Multifocal pneumonia, Hypokalemia Patient Disposition: Admitted As Inpatient Time of Disposition Decision: 02:08 Condition: Fair
[2023-11-01 21:22] LABS: Glucometer 432 mg/dL (74-106)
--- NOTE | 2023-11-01 21:40 | PC.NURSE ---
patient arrived via EMS for altered mental status. patient was eating a sandwich with his girlfriend arya when he went completely aphagic. patient stopped talking and responding. ems reports girlfriend stats he has hx of diabetes and reports a glucose of 360's on scene which girlfriend stated was normal for him. he is an uncomplying diabetic and glucose is normally in the 300's. patient is currently seeing a wound care nurse for multiple wounds. patient has hx of multiple amputations due to diabetes. patient has a paced rhythm of 88. stroke alert and ct notified at triage. patient glucose taken at bedside. patients girlfriend told ems that patient has been falling more often recently. very large bruise to left ribs and back. patient denies pain with palpation. patient completely aphagic but when asked if he is in pain patient shakes head no. when asked to give me his harm patient moves correct limb slightly. unable to squeeze hands or lift limbs more than slightly.patient looks directly at your when speakingor saying his name. patient is on Coumadin.
--- NOTE | 2023-11-01 21:53 | CT_ITS ---
The [address] [address] Patient Name: ADWOA PORTER MRN: [id number] date: 1955 Sex: M Assigned Patient Location: ER Current Patient Location: ER Accession/Order Number: [id number] Exam Date: 11/01/2023 23:45 Report Date: 11/02/2023 01:01 At the request of: ALMA DELIA CHAVIS Procedure: CT abdomen pelvis w con EXAM: CT chest w con, CT abdomen pelvis w con HISTORY: Fall, altered mental status . Right flank bruising. Kidney disease. COMPARISON: None. TECHNIQUE: IV contrast enhanced CT imaging of the chest, abdomen or pelvis was performed using 100 mL of Visipaque 270 intravenous contrast. Sagittal and coronal reconstructions are provided. Dose reduction techniques were achieved by using automated exposure control and/or adjustment of mA and/or kV according to patient size and/or use of iterative reconstruction technique. FINDINGS: CT CHEST: No mediastinal or great vessel injury is seen. The heart is mildly enlarged. There is no pericardial effusion. Prominent coronary arterial calcifications are noted. Left subclavian AICD is noted. There are prominent calcifications in the otherwise unremarkable thoracic aorta and arch vessels. There is a nonspecific 0.5 cm hypodense left thyroid lobe lesion on image 7. Mild nonspecific mediastinal adenopathy measures up to 1.8 x 1.5 cm in the pretracheal region on image 33 and 2 x 1.6 cm in the aortopulmonic window on image 32. Additional smaller nodes are present. There is a small layering left pleural effusion. Nonspecific right middle lobe patchy infiltrate favors pneumonia with milder patchy infiltrates in the bilateral lower lobes. There is respiratory motion artifact. There are acute displaced fractures involving the left posterior 10th through 12th ribs with additional nonacute fractures involving the left anterolateral fifth through ninth ribs. The bony thorax appears otherwise intact. CT ABDOMEN: There is beam attenuation artifact from the patient being scanned with his arms at his sides. No acute solid organ injury is seen. The liver, gallbladder, pancreas, spleen, and adrenal glands are unremarkable. There is cortical scarring in the right kidney. There is a 2.3 cm cortical cyst in the posterior left kidney. The kidneys are otherwise unremarkable. The nonenhanced stomach and small bowel appear normal. Severe atherosclerotic calcifications are seen in the abdomen or pelvis without aneurysm or acute vascular abnormality. There is a fat-containing umbilical hernia. CT PELVIS: No acute pelvic organ injury is seen. A Pedro catheter is noted in the urinary bladder. There are brachytherapy seeds in the mildly enlarged prostate. Mild colonic diverticulosis is noted. The pelvic small bowel loops are unremarkable. The appendix is not seen. There are fat-containing bilateral inguinal hernias. No free fluid, loculated fluid, free air, soft tissue gas or foreign body is seen in the abdomen or pelvis. There is a nonacute fracture involving the right transverse process of L1. No acute osseous findings are seen in the abdomen or pelvis. CT/CT abdomen pelvis w con IMPRESSION: 1. Acute displaced fractures involving the left posterior 10th through 12th ribs, with underlying small layering left pleural effusion. No pneumothorax. 2. Patchy infiltrates in the right middle lobe and bilateral lower lobes favoring multifocal pneumonia. No additional acute findings in the chest. 3. Mild nonspecific mediastinal adenopathy, possibly reactive. Attention at follow-up recommended. 4. Coronary arterial calcifications. 5. No acute findings in the abdomen or pelvis. Chronic changes are described above. Electronically authenticated by: CATRACHO GAFFNEY Date: 11/02/2023 01:01
--- NOTE | 2023-11-01 21:53 | CT_ITS ---
The [address] [address] Patient Name: ADWOA PORTER MRN: [id number] date: 1955 Sex: M Assigned Patient Location: ER Current Patient Location: ER Accession/Order Number: [id number] Exam Date: 11/01/2023 23:45 Report Date: 11/02/2023 01:01 At the request of: ALMA DELIA CHAVIS Procedure: CT chest w con EXAM: CT chest w con, CT abdomen pelvis w con HISTORY: Fall, altered mental status . Right flank bruising. Kidney disease. COMPARISON: None. TECHNIQUE: IV contrast enhanced CT imaging of the chest, abdomen or pelvis was performed using 100 mL of Visipaque 270 intravenous contrast. Sagittal and coronal reconstructions are provided. Dose reduction techniques were achieved by using automated exposure control and/or adjustment of mA and/or kV according to patient size and/or use of iterative reconstruction technique. FINDINGS: CT CHEST: No mediastinal or great vessel injury is seen. The heart is mildly enlarged. There is no pericardial effusion. Prominent coronary arterial calcifications are noted. Left subclavian AICD is noted. There are prominent calcifications in the otherwise unremarkable thoracic aorta and arch vessels. There is a nonspecific 0.5 cm hypodense left thyroid lobe lesion on image 7. Mild nonspecific mediastinal adenopathy measures up to 1.8 x 1.5 cm in the pretracheal region on image 33 and 2 x 1.6 cm in the aortopulmonic window on image 32. Additional smaller nodes are present. There is a small layering left pleural effusion. Nonspecific right middle lobe patchy infiltrate favors pneumonia with milder patchy infiltrates in the bilateral lower lobes. There is respiratory motion artifact. There are acute displaced fractures involving the left posterior 10th through 12th ribs with additional nonacute fractures involving the left anterolateral fifth through ninth ribs. The bony thorax appears otherwise intact. CT ABDOMEN: There is beam attenuation artifact from the patient being scanned with his arms at his sides. No acute solid organ injury is seen. The liver, gallbladder, pancreas, spleen, and adrenal glands are unremarkable. There is cortical scarring in the right kidney. There is a 2.3 cm cortical cyst in the posterior left kidney. The kidneys are otherwise unremarkable. The nonenhanced stomach and small bowel appear normal. Severe atherosclerotic calcifications are seen in the abdomen or pelvis without aneurysm or acute vascular abnormality. There is a fat-containing umbilical hernia. CT PELVIS: No acute pelvic organ injury is seen. A Pedro catheter is noted in the urinary bladder. There are brachytherapy seeds in the mildly enlarged prostate. Mild colonic diverticulosis is noted. The pelvic small bowel loops are unremarkable. The appendix is not seen. There are fat-containing bilateral inguinal hernias. No free fluid, loculated fluid, free air, soft tissue gas or foreign body is seen in the abdomen or pelvis. There is a nonacute fracture involving the right transverse process of L1. No acute osseous findings are seen in the abdomen or pelvis. CT/CT chest w con IMPRESSION: 1. Acute displaced fractures involving the left posterior 10th through 12th ribs, with underlying small layering left pleural effusion. No pneumothorax. 2. Patchy infiltrates in the right middle lobe and bilateral lower lobes favoring multifocal pneumonia. No additional acute findings in the chest. 3. Mild nonspecific mediastinal adenopathy, possibly reactive. Attention at follow-up recommended. 4. Coronary arterial calcifications. 5. No acute findings in the abdomen or pelvis. Chronic changes are described above. Electronically authenticated by: CATRACHO GAFFNEY Date: 11/02/2023 01:01
[2023-11-01 21:54] LABS: ABG PCO2 39.1 mmHg (35.0-45.0); Allen Test POSITIVE (POSITIVE); Base Excess ABG 5.7 mmol/L (-2.0-2.0); HCO3 ABG 29.2 mmol/L (22.0-26.0); O2 Mode ROOM AIR; Oxygen Saturation ABG 89.7 %; Puncture Site R RADIAL; pH ABG 7.482 (7.350-7.450)
[2023-11-01 22:08] LABS: Basophils Absolute Auto 0.1 10^3/uL (0.0-0.1); Basophils Percent Auto 0.3 % (0.2-2.0); Eosinophils Absolute Auto 0.3 10^3/uL (0.0-0.7); Eosinophils Percent Auto 1.5 % (0.9-7.0); Hematocrit 42.7 % (42.0-54.0); Hemoglobin 14.3 g/dL (14.0-18.0); Lymphocytes Absolute Auto 1.6 10^3/uL (1.2-3.8); Lymphocytes Percent Auto 8.1 % (20.5-60.0); Mean Corpuscular HGB Conc 33.5 g/dL (29.9-35.2); Mean Corpuscular Hemoglobin 28.8 pg (25.9-34.0); Mean Corpuscular Volume 86.1 fL (80.0-94.0); Mean Platelet Volume 9.9 fL (9.5-13.5); Monocytes Absolute Auto 1.2 10^3/uL (0.3-0.8); Monocytes Percent Auto 6.2 % (1.7-12.0); Neutrophils Absolute Auto 16.1 10^3/uL (1.4-6.5); Neutrophils Percent Auto 82.9 % (43.0-75.0); Platelet Count 256 10^3/uL (150-450); Red Blood Count 4.96 10^6/uL (4.70-6.10); Red Cell Distribution Width 16.8 % (11.0-15.0); White Blood Count 19.5 10^3/uL (4.0-11.0)
[2023-11-01 22:09] LABS: Adenovirus NOT DETECTED (NOT DETECTE); Bordetella parapertussis NOT DETECTED (NOT DETECTE); Coronavirus 229E NOT DETECTED (NOT DETECTE); Coronavirus HKU1 NOT DETECTED (NOT DETECTE); Coronavirus NL63 NOT DETECTED (NOT DETECTE); Coronavirus OC43 NOT DETECTED (NOT DETECTE); Human Metapneumovirus NOT DETECTED (NOT DETECTE); Human Rhinovirus/Enterovirus NOT DETECTED (NOT DETECTE); Influenza A NOT DETECTED (NOT DETECTE); Influenza B NOT DETECTED (NOT DETECTE); Mycoplasma pneumoniae NOT DETECTED (NOT DETECTE); Parainfluenza Virus 1 NOT DETECTED (NOT DETECTE); Parainfluenza Virus 2 NOT DETECTED (NOT DETECTE); Parainfluenza Virus 3 NOT DETECTED (NOT DETECTE); Parainfluenza Virus 4 NOT DETECTED (NOT DETECTE); Respiratory Syncytial Virus NOT DETECTED (NOT DETECTE); SARS-CoV-2 NOT DETECTED (NOT DETECTE)
[2023-11-01 22:23] LABS: Ammonia 36 umol/L (11-32)
[2023-11-01 22:25] LABS: INR 1.23; Prothrombin Time 12.9 sec (9.0-11.6)
--- NOTE | 2023-11-01 22:29 | PC.NURSE ---
o2 initiated per PA. due to crital po2 in blood gas results
[2023-11-01 22:33] LABS: Digoxin 0.8 ng/mL (0.9-2.0)
[2023-11-01] MEDS: ACETAMINOPHEN 325 MG TABLET 650 MG PO (22:36)
[2023-11-01 22:38] LABS: Alanine Aminotransferase 26 U/L (16-63); Albumin Globulin Ratio 0.7; Albumin Level 3.5 g/dL (3.4-5.0); Alkaline Phosphatase 151 U/L (46-116); Anion Gap 13.1; Aspartate Amino Transferase 39 U/L (15-37); BUN Creatinine Ratio 24.1; Bilirubin Total 1.5 mg/dL (0.2-1.0); Calcium 8.6 mg/dL (8.5-10.1); Carbon Dioxide 30.1 mmol/L (21.0-32.0); Estimated GFR (African America 43 (>=60); Estimated GFR (Non-African Ame 35 (>=60); Globulin 4.9 g/dL; Glucose 419 mg/dL (74-106); Potassium 3.2 mmol/L (3.5-5.1); Thyroid Stimulating Hormone 1.976 uIU/mL (0.358-3.740); Total Protein 8.4 g/dL (6.4-8.2); Troponin I High Sensitivity 25.9 pg/mL (4.0-76.1)
[2023-11-01 22:39] LABS: Ethanol <3 mg/dL
[2023-11-01 22:41] LABS: Chloride 84 mmol/L (98-107); Lactate/Lactic Acid 2.8 mmol/L (0.4-2.0); Sodium 124 mmol/L (136-145)
[2023-11-01 22:50] LABS: Bilirubin Urine NEGATIVE (NEGATIVE); Blood Urine NEGATIVE (NEGATIVE); Clarity Urine CLEAR (CLEAR); Color Urine LT. YELLOW (YELLOW); Glucose Urine UA >=1000 mg/dL (NEGATIVE); Ketones Urine NEGATIVE (NEGATIVE); Leukocyte Esterase Urine NEGATIVE (NEGATIVE); Nitrite Urine NEGATIVE (NEGATIVE); Protein Urine NEGATIVE (NEG/TRACE); Urine Microscopic Indicated NO; Urobilinogen Urine 0.2 EU/dL (0.2-1.0)
[2023-11-01 22:58] LABS: Amphetamine Screen Urine NEGATIVE (NEGATIVE); Barbiturates Screen Urine NEGATIVE (NEGATIVE); Benzodiazepines Screen Urine NEGATIVE (NEGATIVE); Buprenorphine Screen Urine NEGATIVE (NEGATIVE); Cannabinoid Screen Urine NEGATIVE (NEGATIVE); Cocaine Screen Urine NEGATIVE (NEGATIVE); Methadone Screen Urine NEGATIVE (NEGATIVE); Methamphetamines Screen Urine NEGATIVE (NEGATIVE); Opiate Screen Urine POSITIVE (NEGATIVE); Oxycodone Screen Urine NEGATIVE (NEGATIVE); Phencyclidine Screen Urine NEGATIVE (NEGATIVE); Tricyclic Antidepressant Urine NEGATIVE (NEGATIVE)
--- NOTE | 2023-11-01 23:04 | PC.NURSE ---
Patient starting to talk after returning from CT. physician at bedside, patient able to say clearly first and last name correctly and birthday. patient able to squeeze fingers. A&ox4
[2023-11-02] VITALS (44 sets, daily range): BP systolic 91–125; BP diastolic 51–69; PULSE 18–90; RESP 13–22; TEMP 36.2–36.6; O2SAT 93–98; BMI 26.6
[2023-11-02 01:04] LABS: Lactate/Lactic Acid 2.3 mmol/L (0.4-2.0)
[2023-11-02] MEDS: PIPERACILLIN SODIUM/TAZOBACTAM 3.375 GM in 0.9 % SODIUM CHLORIDE 50 ML IV ×3 (02:36→18:26)
--- NOTE | 2023-11-02 04:34 | CA_ITS ---
Patient Name: ADWOA PORTER MR#: [id number] : 1955 Exam Date: 11/02/2023 Ordering Doctor: MURTAZA MCNAMARA ECHOCARDIOGRAM REPORT PROCEDURE: CA ECHO LIMITED INDICATIONS: chf COMPARISON: None. DESCRIPTION: Limited ECHOCARDIOGRAM Real-time transthoracic echocardiography with 2D and M-mode performed. QUALITY: Technical quality was good. LEFT VENTRICLE: Mild dilatation. Normal left ventricular wall thickness. LV EF: Global left ventricular systolic function is severely decreased. Visual estimation of left ventricular ejection fraction is 10-15% which appears unchanged from previous exam of 08/20/23. Global hypokinesis. LEFT ATRIUM: Severe dilatation. RIGHT ATRIUM: Severe dilatation. RIGHT VENTRICLE:Severe dilatation. Decreased right ventricular systolic function. Pacer wire present. TRICUSPID VALVE:Normal mobility and thickness. MITRAL VALVE: Normal mobility and thickness. AORTIC VALVE: Normal trileaflet appearance. Thickened aortic valve. Normal leaflet mobility. AORTIC ROOT: Normal diameter and appearance. PULMONIC VALVE: Normal thickness and mobility. PERICARDIUM: No evidence of pericardial effusion. IVC: Severe dilatation. Measuring 2.7cm with no collapse. CONCLUSION: 1. Global left ventricular systolic function is severely decreased. Visual estimation of left ventricular ejection fraction is 15% which appears unchanged from previous exam of 08/20/23. 2. Severe biatrial enlargement 3. Severely dilated right ventricle with reduced systolic function A limited echocardiogram was performed Adult Echocardiography Procedure Report Left Ventricle LVEDD (3.7 - 5.6 cm): 5.81 cm LVESD (2.2 - 4.0 cm): 5.43 cm LVIVS thickness (0.6 - 1.2 cm): 0.79 cm LVPW thickness (0.5 - 1.0 cm): 0.94 cm LVOT Diameter 2.29 cm Left Ventricular Ejection Fraction: 13.38 % Left Atrium LA Volume Index (2D A2C): 78.31 ml/m2 Left Atrium Systolic Dimension: 4.61 cm Mitral Valve Right Ventricle RV Internal Diastolic Dimension: 4.97 cm Aorta AO Root Diam: 3.42 cm Aortic Valve Tricuspid Valve Pulmonic Valve Right Atrium Right Atrium Systolic Pressure: 134.04 ml, 134.04 ml Dictated by: Maki Meadows M.D. on 11/02/2023 at 14:49 Approved by: Maki Meadows M.D. on 11/02/2023 at 14:54
[2023-11-02] MEDS: POTASSIUM CHLORIDE IN WATER 10 MEQ/100 ML PIGGYBACK 100 MEQ IV (04:39)
--- NOTE | 2023-11-02 04:45 | W.PM.TELEPN ---
Progress Note: Subjective Subjective Interval history: CC: Weakness, side pain HPI: This is a pleasant 68 years old gentleman who presents with above complaints. Apparently patient fell recently striking his side and causing a rib fracture. He was trying to recuperate at home using oral pain medications, but his condition gradually declined. On presentation to emergency room patient found to have sodium level of 124, elevated WBCs and lactic acid. Imaging studies revealed a right middle lobe pneumonia. Blood work significant for sodium level of 124. Admitted for further evaluation and treatment. Exam Narrative Exam Narrative: ROS: 1.General: See above 2.HEENT: no JONES, no blurry vision, no swallow problems, no nasal congestion, no sore throat 3.Pulmonary: no cough, SOB, wheezes 4.CVS: no CP, no palpitations, no ELKINS, no SOB, no intermittent claudication 5.GI: no nausea, vomiting or diarrhea, no abdominal pain, no constipation, no hematemesis or hematochezia 6.: no renal colic, no hematuria, urinary frequency or urgency 7.Extremities: no edema 8.Neurological: no dizziness, vertigo, double or blurry vision, no no focal weakness, no paresthesia, no swallow or speech problems 9.Musculosceletal: no joint pains, no joint swelling, no back pain 10.Dermatological: no skin rashes, no lesions, no pruritus 11.Hematological: no bleeding, no hx/o clots 12.Endocrinological: no heat/cold intolerance, no hx/o diabetes 13.Psychiatric: no suicidal or homicidal thoughts Physical Exam: Not in distress, pleasant, lucid, cooperative, Head - atraumatic, eyes - pupils equal, round, reactive to light, extra ocular movement intact, MMM Neck - supple, thyroid not enlarged, LN not palpated Lungs - clear to auscultation, no dullness on percussion CVS - heart sounds S1, S2, no additional murmurs gallop, regular rate and rhythm Gastrointestinal?abdomen is soft, non-tender, non-distended, no organomegaly, positive bowel sounds Extremities no clubbing, cyanosis, bilateral lower extremity edema edema Neurological?cranial nerve II?XII grossly intact, no meningeal signs, no cerebellar signs, no sensory deficit Musculoskeletal - oints, no effusions, ROM preserved Dermatological - the skin dry, warm, multiple chronic wounds on both lower extremities with dressing. Surrounding redness Psychiatric?patient is AAO X3, patient has normal affect Constitutional Vital Signs, click to edit/add: Last Vital Signs Temp 98 F 11/02/23 03:19 Pulse 85 11/02/23 03:25 Resp 18 11/02/23 03:25 BP 125/60 11/02/23 03:19 Pulse Ox 93 L 11/02/23 03:25 O2 Del Method Room Air 11/02/23 03:25 O2 Flow Rate 2 11/01/23 22:00 Progress Note: Objective Labs Labs: Short CBC 11/01/23 Range/Units 21:47 WBC 19.5 H (4.0-11.0) 10^3/uL Hgb 14.3 (14.0-18.0) g/dL Hct 42.7 (42.0-54.0) % Plt Count 256 (150-450) 10^3/uL BMP 11/01/23 21:47 Sodium 124 L* Potassium 3.2 L Chloride 84 L* Carbon Dioxide 30.1 BUN 46.0 H Creatinine 1.91 H Glucose 419 H Calcium 8.6 Liver Function 11/01/23 Range/Units 21:47 Total Bilirubin 1.5 H (0.2-1.0) mg/dL AST 39 H (15-37) U/L ALT 26 (16-63) U/L Alkaline Phosphatase 151 H (46-116) U/L Albumin 3.5 (3.4-5.0) g/dL Urine 11/01/23 Range/Units 22:16 Urine Color Lt. yellow (YELLOW) Urine Clarity Clear (CLEAR) Urine pH 6.0 (5.0-9.0) Ur Specific [place] 1.010 (1.005-1.025) Urine Protein Negative (NEG/TRACE) mg/dL Urine Glucose (UA) >=1000 A (NEGATIVE) mg/dL Progress Note: A&P Assessment and Plan (1) Sepsis: Assessment and Plan: SEPSIS: source of sepsis: Pulmonary plus possibly dermatological aggressive fluid resuscitation empiric broad spectrum Abxs with consideration to patient's allergies probiotics while on ABxs trend lactate F/U Cxs and tailor Abxs accordingly consider an ID consult (2) Left rib fracture: Assessment and Plan: Continue to optimize pain control Continue with incentive spirometry Follow-up with physical and Occupational Therapy (3) Pneumonia: Assessment and Plan: See above (4) Paroxysmal atrial fibrillation: Assessment and Plan: Continue rate/rhythm control. Monitor on telemetry (5) Type 2 diabetes mellitus with hyperglycemia: Assessment and Plan: Continue with ADA diet. Continue with Accu-Cheks, coverage with sliding scale of insulin (6) Cellulitis and abscess of foot: Assessment and Plan: See above Follow-up cultures Wound care Empiric antibiotics Plan END: As the provider for the telehealth service, I attest that I introduced myself to the patient, provided my credentials, disclosed by location and determined that based on a review of the patient's chart and discussion with members of the patient's treatment team, telemedicine via real-time, 2 way, and interactive audio and video platform is an appropriate and effective means of providing the service. ?The patient and I mutually agree this visit is appropriate for telemedicine. ?[place] ?The encounter took approximately 35 minutes. ?The nurse was present during the entire time and I was able to move the stethoscope in appropriate directions. ?The patient was evaluated at the Hospital ? Portions of this note may be dictated using [employer] voice recognition software. Variances in spelling and vocabulary are possible and unintentional. Not all errors may be caught and/or corrected. Please notify the author if any discrepancies are noted and/or if the meaning of any statement is unclear.? ? Patient verbally consented for treatment via video visit with patient currently located at the [facility] and provider located in [place]. Telemedicine Attestation Telemedicine Attestation I conducted this encounter from [[place]] via secure live, [id number] video conference with the patient, located at [facility] with [sepsis]. Prior to the interview, the risks and benefits of telemedicine were discussed with the patient and verbal consent was obtained.
[2023-11-02 04:46] LABS: Basophils Absolute Auto 0.1 10^3/uL (0.0-0.1); Basophils Percent Auto 0.3 % (0.2-2.0); Eosinophils Absolute Auto 0.2 10^3/uL (0.0-0.7); Eosinophils Percent Auto 1.2 % (0.9-7.0); Hematocrit 41.8 % (42.0-54.0); Hemoglobin 13.8 g/dL (14.0-18.0); Immature Granulocytes Abs Auto 0.22 10^3/uL (0.00-0.03); Immature Granulocytes Pct Auto 1.1 % (0.0-0.5); Lymphocytes Absolute Auto 2.5 10^3/uL (1.2-3.8); Mean Corpuscular Hemoglobin 27.9 pg (25.9-34.0); Mean Corpuscular Volume 84.6 fL (80.0-94.0); Mean Platelet Volume 10.1 fL (9.5-13.5); Monocytes Absolute Auto 1.4 10^3/uL (0.3-0.8); Monocytes Percent Auto 6.8 % (1.7-12.0); Neutrophils Absolute Auto 16.4 10^3/uL (1.4-6.5); Neutrophils Percent Auto 78.6 % (43.0-75.0); Platelet Count 262 10^3/uL (150-450); Red Blood Count 4.94 10^6/uL (4.70-6.10); Red Cell Distribution Width 16.8 % (11.0-15.0); White Blood Count 20.8 10^3/uL (4.0-11.0)
[2023-11-02 04:54] LABS: Anion Gap 10.4; BUN Creatinine Ratio 25.1; Calcium 8.4 mg/dL (8.5-10.1); Carbon Dioxide 30.2 mmol/L (21.0-32.0); Chloride 89 mmol/L (98-107); Estimated GFR (African America 47 (>=60); Estimated GFR (Non-African Ame 39 (>=60); Glucose 281 mg/dL (74-106); Sodium 127 mmol/L (136-145)
[2023-11-02 04:55] LABS: Lactate/Lactic Acid 2.3 mmol/L (0.4-2.0)
[2023-11-02 04:56] LABS: Potassium 2.6 mmol/L (3.5-5.1)
[2023-11-02 05:27] LABS: Sodium Urine Random 60 mmol/L (30-90)
[2023-11-02] MEDS: 0.9 % SODIUM CHLORIDE 1,000 ML 100 ML IV ×2 (05:34→16:18)
[2023-11-02] MEDS: HYDROCODONE/ACET 5-325 MG TABLET 1 TAB PO ×3 (05:34→23:49)
[2023-11-02] MEDS: CEFTRIAXONE 1,000 MG in 0.9 % SODIUM CHLORIDE 50 ML 100 MG IV (05:34)
[2023-11-02] MEDS: INSULIN ASPART 300 UNIT/3 ML PEN SUBQ ×4 (07:26→22:43)
[2023-11-02 07:27] LABS: Glucometer 247 mg/dL (74-106)
[2023-11-02] MEDS: VANCOMYCIN HCL 2,000 MG in 0.9 % SODIUM CHLORIDE 500 ML 250 MG IV (07:28)
--- NOTE | 2023-11-02 08:34 | PM.HP ---
H&P: HPI History of Present Illness Chief complaint: ALTERED AMS MULTIFOCAL PNEUMONIA Narrative: patient is a 68-year-old male with past medical history of severe decompensated systolic heart failure with an ejection fraction of approximately ten percent. Also with a history of anasarca, chronic obstructive pulmonary disease, hyperlipidemia, type 2 diabetes with peripheral neuropathy, atrial fibrillation on chronic anticoagulation with Coumadin, and Chronic Diabetic wounds, frequent falls. Patient is well known to our hospital for frequent admissions. Patient has been falling at home and recently had a fracture of the left 10-12th ribs. He's been prescribed narcotics for pain. Last night was brought in my EMS for altered mental status after eating dinner. He was found to have hyponatremia, multifocal pneumonia and sepsis. Patient was admitted to the hospitalist service and ICU for work up. This morning, patient is conversing normally. He is alert and oriented x 3. He is complaining of some left sided rib pain, but has no other issues or concerns. Review of Systems ROS Narrative ROS: a complete review of systems were reviewed with patient and are positive as below or listed in History of Chief Complaint. General: no fever, chills, night sweats Head: no headache, trauma, visual changes, nausea or vomiting Skin: no reported rashes, itching or sores, bruising left side and bilateral legs Eyes: no blurriness of vision Ears: no reported hearing loss, vertigo, earache, or tinnitus Throat: no sore throat, hoarseness, swelling of neck, or tongue pain Heart: no chest pain Lungs: no shortness of breath or cough GI: no diarrhea or vomiting/nausea Urinary: no urinary urgency, frequency or pain Neuro: no numbness or tingling HEM: no bleeding issues but bruising ENDO: no thyroid problems Psych: no anxiety or depression [facility] Medical History (Updated 11/02/23 @ 12:46 by Vangie Mata DO) Chronic wound of extremity Dyspnea ?R06.00 - Dyspnea, unspecified (ICD-10) CKD (chronic kidney disease) stage 4, GFR 15-29 ml/min ?N18.4 - Chronic kidney disease, stage 4 (severe) (ICD-10) HLD (hyperlipidemia) ?E78.5 - Hyperlipidemia, unspecified (ICD-10) Fluid retention ?R60.9 - Edema, unspecified (ICD-10) Acute urinary retention ?R33.8 - Other retention of urine (ICD-10) Elevated INR ?R79.1 - Abnormal coagulation profile (ICD-10) Closed head injury ?S09.90XA - Unspecified injury of head, initial encounter (ICD-10) Cardiac defibrillator in place ?Z95.810 - Presence of automatic (implantable) cardiac defibrillator (ICD-10) Pacemaker ?Z95.0 - Presence of cardiac pacemaker (ICD-10) Pneumonia ?J18.9 - Pneumonia, unspecified organism (ICD-10) Ascites ?R18.8 - Other ascites (ICD-10) COPD (chronic obstructive pulmonary disease) ?J44.9 - Chronic obstructive pulmonary disease, unspecified (ICD-10) CAD (coronary artery disease) ?I25.10 - Atherosclerotic heart disease of [place] coronary artery without angina pectoris (ICD-10) Benign essential hypertension ?I10 - Essential (primary) hypertension (ICD-10) Anemia in chronic kidney disease ?N18.9 - Chronic kidney disease, unspecified (ICD-10) ?D63.1 - Anemia in chronic kidney disease (ICD-10) Paroxysmal atrial fibrillation ?I48.0 - Paroxysmal atrial fibrillation (ICD-10) Type 2 diabetes mellitus with hyperglycemia ?E11.65 - Type 2 diabetes mellitus with hyperglycemia (ICD-10) Hypothyroid ?E03.9 - Hypothyroidism, unspecified (ICD-10) Chronic kidney disease, stage 3a ?N18.31 - Chronic kidney disease, stage 3a (ICD-10) Chronic HFrEF (heart failure with reduced ejection fraction) ?I50.22 - Chronic systolic (congestive) heart failure (ICD-10) Surgical History History of appendectomy ?Z90.49 - Acquired absence of other specified parts of digestive tract (ICD-10) Family History Mother Family history of CHF (congestive heart failure) Brother Family history of cancer Social History Within the past year, how often did you have a drink containing alcohol: never Within the past year, how often did you have six or more drinks on one occasion: never Score interpretation: A score less than 4 is consistent with normal alcohol consumption. 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 Known occupational exposures/hazards: No Highest level of school completed/degree received: high school graduate Do you want help with school or training: No Are you now , , , , never or living with a partner: living with partner In a typical week, how many times do you talk on the telephone with family, friends, or neighbors: 3 or more times per week How often do you get together with friends or relatives: 3 or more times per week How often do you attend shinto or congregation services: never Do you belong to any clubs or organizations such as shinto groups unions, Social Yuppies or athletic groups, or school groups: no Total score: 2 Score interpretation: A score of greater than or equal to 2 indicates the lowest level of social isolation. Little interest or pleasure in doing things: not at all Feeling down, depressed, or hopeless: not at all Feel stressed/tense/nervous/anxious/difficulty sleeping: not at all Due to disability, difficulty making decisions: No Do you think of yourself as: straight/heterosexual Gender Identity: male Meds Home Medications and Allergies Home Medications Medication Instructions Recorded Confirmed Type aspirin 81 mg tablet,delayed 81 mg PO DAILY 05/24/23 10/22/23 History release (Adult Low Dose Aspirin) atorvastatin 80 mg tablet 80 mg PO DAILY 05/24/23 10/22/23 History carvedilol 25 mg tablet 25 mg PO Q12H 05/24/23 10/22/23 History dapagliflozin propanediol 10 mg 10 mg PO DAILY 05/24/23 10/22/23 History tablet (Farxiga) digoxin 125 mcg (0.125 mg) tablet 0.125 mg PO QDAY 05/24/23 10/22/23 History gabapentin 400 mg capsule 400 mg PO Q12H 05/24/23 10/22/23 History hydrocodone 5 mg-acetaminophen 325 1 tab PO Q8H PRN pain, moderate 05/24/23 10/22/23 History mg tablet isosorbide dinitrate 20 mg tablet 20 mg PO BIDWM 05/24/23 10/22/23 History levothyroxine 50 mcg tablet 50 mcg PO .ACB 05/24/23 10/22/23 History spironolactone 25 mg tablet 25 mg PO QAM 05/24/23 10/22/23 History amitriptyline 25 mg tablet 25 mg PO .COMPLEX PRN sleep 06/02/23 08/21/23 History cyanocobalamin (vitamin B-12) 1,000 mcg PO DAILY 06/02/23 10/22/23 History 1,000 mcg tablet,extended release hydralazine 50 mg tablet 50 mg PO Q8H 06/02/23 10/22/23 History metolazone 2.5 mg tablet 2.5 mg PO DAILY 06/02/23 10/22/23 History nitroglycerin 0.4 mg sublingual 0.4 mg sublingual Q5M PRN chest 06/02/23 10/22/23 History tablet pain warfarin 2.5 mg tablet 2.5 mg PO DAILY 06/02/23 10/22/23 History potassium chloride 10 mEq 20 meq (2 x 10 mEq) PO TID #90 tabs 06/21/23 10/22/23 Rx tablet,extended release(part/cryst) (Klor-Con M) bumetanide 2 mg tablet 2 mg PO BID #60 tabs 08/22/23 10/22/23 Rx oxycodone-acetaminophen 5 mg-325 1 tab PO Q6H PRN pain 5 days #20 10/22/23 Rx mg tablet (Percocet) tabs Allergies Allergy/AdvReac Type Severity Reaction Status Date / Time GABRIELA Inhibitors AdvReac Mild COUGH Verified 10/22/23 11:31 Exam Narrative Exam Narrative: General: Patient is alert, and oriented to person, place and time with normal affect, proper hygiene Skin: ecchymosis noted on right and left skins and chronic heel wounds are currently dressed c/d/i but foul odor Head: atraumatic, acephalic Eyes: PERRLA, no nystagmus present, conjunctiva clear, no scleral icterus Ears: normal Tympanic Membrane, normal gross auditory acuity Nose: symmetric, no discharge, no maxillary or frontal sinus tenderness Mouth/Throat: no erythema, exudate, or tonsillar enlargement, normal dentition Neck: no masses palpated, normal thyroid, no JVD or audible carotid bruits Heart:irregular rate and rhythm, no murmurs/rubs/gallops Lungs: no audible wheezes, crackles and normal breath sounds all lung lyles Abdomen: Normal audible bowel sounds, no distension, No palpable masses, no organomegaly, no rebound/guarding/ or rigidity Musculoskeletal: muscle atrophy noted, ROM is limited due to being in hospital bed, +1 swelling bilateral lower extremities with some erythema present up to the knees Neuro: CN II-X grossly intact Constitutional Vital Signs, click to edit/add: Last Vital Signs Temp 97.2 F L 11/02/23 08:00 Pulse 88 11/02/23 08:00 Resp 16 11/02/23 08:00 BP 91/53 11/02/23 08:00 Pulse Ox 95 11/02/23 08:00 O2 Del Method Room Air 11/02/23 08:00 O2 Flow Rate 2 11/01/23 22:00 Results Labs Labs: Short CBC 11/01/23 11/02/23 Range/Units 21:47 03:51 WBC 19.5 H 20.8 H (4.0-11.0) 10^3/uL Hgb 14.3 13.8 L (14.0-18.0) g/dL Hct 42.7 41.8 L (42.0-54.0) % Plt Count 256 262 (150-450) 10^3/uL BMP 11/01/23 11/02/23 21:47 03:51 Sodium 124 L* 127 L Potassium 3.2 L 2.6 L* Chloride 84 L* 89 L Carbon Dioxide 30.1 30.2 BUN 46.0 H 44.0 H Creatinine 1.91 H 1.75 H Glucose 419 H 281 H Calcium 8.6 8.4 L Liver Function 11/01/23 Range/Units 21:47 Total Bilirubin 1.5 H (0.2-1.0) mg/dL AST 39 H (15-37) U/L ALT 26 (16-63) U/L Alkaline Phosphatase 151 H (46-116) U/L Albumin 3.5 (3.4-5.0) g/dL Urine 11/01/23 Range/Units 22:16 Urine Color Lt. yellow (YELLOW) Urine Clarity Clear (CLEAR) Urine pH 6.0 (5.0-9.0) Ur Specific [place] 1.010 (1.005-1.025) Urine Protein Negative (NEG/TRACE) mg/dL Urine Glucose (UA) >=1000 A (NEGATIVE) mg/dL ABG ABG results: 11/01/23 21:48 ABG pH 7.482 H ABG pCO2 39.1 ABG pO2 55.0 L ABG HCO3 29.2 H ABG O2 Saturation 89.7 ABG Base Excess 5.7 H Assessment and Plan Assessment and Plan (1) Sepsis: Assessment and Plan: leukocytosis of 20.8, lactate 2.8, temp 101.9, patient was given fluid resuscitation, cultures obtained and Vancomycin and Zosyn initiated. This morning lactate is almost normal 2.1. Afebrile. Patient is improving. continue to monitor culture results and adjust treatment accordingly. Qualifiers: Sepsis type: sepsis due to unspecified organism Sepsis acute organ dysfunction status: without acute organ dysfunction Qualified Code(s): A41.9 - Sepsis, unspecified organism (2) Pneumonia: Assessment and Plan: multifocal seen on CT chest, small left pleural effusion seen and RML infiltrates. Given recent rib fractures, will place on OPEP therapy. continue antibiotics. Can be a cause of sepsis, or also cellulitis. Last positive sputum culture was for Klebsiella about 2 months ago. So will place on Zosyn to cover this. Qualifiers: Pneumonia type: due to unspecified organism Laterality: bilateral Lung location: unspecified part of lung Qualified Code(s): J18.9 - Pneumonia, unspecified organism (3) Hyponatremia: Assessment and Plan: improving with IVF, currently 131 (4) Hypokalemia: Assessment and Plan: 2.8, Will give 40 meq IV and also restart home 20meq TID, recheck K at 1300 (5) Cellulitis and abscess of foot: Assessment and Plan: continue vanc and zosyn, wound consult (6) Left rib fracture: Assessment and Plan: pain control and OPEP therapy Qualifiers: Encounter type: subsequent encounter Rib fracture type: multiple ribs Fracture type: closed Fracture healing: with delayed healing Qualified Code(s): S22.42XG - Multiple fractures of ribs, left side, subsequent encounter for fracture with delayed healing (7) Paroxysmal atrial fibrillation: Assessment and Plan: daily INR, countinue home meds and coumadin, current INR 1.27, pharmacy following (8) Type 2 diabetes mellitus with hyperglycemia: Assessment and Plan: hold home meds, SSI as needed Qualifiers: Diabetes mellitus senior care insulin use: 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 Qualifiers: COPD type: chronic bronchitis Chronic bronchitis type: unspecified Qualified Code(s): J42 - Unspecified chronic bronchitis (11) Altered mental status: Assessment and Plan: improved this morning, CT the brain showed old/remote infarcts, volume loss, no acute process; No focal deficits on exam today Plan Patient is a full code patient is in inpatient status and is expected to stay more than 2 midnights continue coumadin
[2023-11-02] MEDS: METOLAZONE 2.5 MG TABLET PO (08:55)
[2023-11-02] MEDS: DIGOXIN 125 MCG TABLET PO (08:55)
[2023-11-02] MEDS: SPIRONOLACTONE 25 MG TABLET PO (08:56)
[2023-11-02] MEDS: LEVOTHYROXINE SODIUM 25 MCG TABLET 50 MCG PO (08:56)
[2023-11-02] MEDS: GABAPENTIN 400 MG CAPSULE PO ×2 (08:56→20:25)
[2023-11-02] MEDS: DOCUSATE SODIUM 100 MG CAPSULE PO ×2 (08:56→20:25)
[2023-11-02] MEDS: ASPIRIN 81 MG TABLET.DR PO (08:56)
[2023-11-02] MEDS: WARFARIN SODIUM 2.5 MG TABLET PO (08:56)
[2023-11-02] MEDS: CARVEDILOL 25 MG TABLET PO ×2 (08:56→20:25)
[2023-11-02] MEDS: POTASSIUM CHLORIDE 40 MEQ in 0.9 % SODIUM CHLORIDE 250 ML 67.5 MEQ IV (09:00)
--- NOTE | 2023-11-02 09:15 | CM.NOTE ---
Rounding with Dr. Mata and RN Yaakov, ordered PT and OT eval at this time. Lab also at bedside at this time. Dr. Mata discussed with patient having 3 broken ribs and his falls at home. Pt. states he still has [facility]. Await PT and OT evals to determine discharge plan.
--- NOTE | 2023-11-02 09:19 | CM.NOTE ---
Important Message From Medicare discussed with pt, pt verbalizes understanding and signs paper. Original given to pt and copy placed on pt's chart.
--- NOTE | 2023-11-02 09:30 | PC.NURSE ---
DR. BUNN IN TO SEE PATIENT THIS MORNING. REVIEWED PLAN OF CARE WITH PATIENT AND CARE TEAM AT THIS TIME. PATIENT VERBALIZED UNDERSTANDING AND AGREEABLE.
[2023-11-02 09:36] LABS: Anion Gap 11.1; Calcium 7.8 mg/dL (8.5-10.1); Carbon Dioxide 30.7 mmol/L (21.0-32.0); Chloride 92 mmol/L (98-107); Estimated GFR (African America 50 (>=60); Estimated GFR (Non-African Ame 42 (>=60); Glucose 245 mg/dL (74-106); Sodium 131 mmol/L (136-145)
[2023-11-02 09:46] LABS: Lactate/Lactic Acid 2.1 mmol/L (0.4-2.0)
[2023-11-02 09:47] LABS: Potassium 2.8 mmol/L (3.5-5.1)
--- NOTE | 2023-11-02 10:28 | PC.NURSE ---
PATIENT AMBULATED TO CHAIR WITH STANDBY ASSISTANCE FROM THIS RN AND THE AID OF A WALKER. PATIENT TRANSFERRED WELL. PATIENT DID NOT APPEAR OR HAVE COMPLAINTS OF DYSPNEA ON EXERTION. PATIENT TOLERATED WELL. PATIENT WAS MILDLY UNSTEADY IN GAIT. PT AND OT TO EVALUATE FURTHER. PATIENT GIVEN CALL LIGHT AND PHONE. PATIENT DENIES ANY FURTHER NEEDS AT THIS TIME.
[2023-11-02] MEDS: ACETAMINOPHEN 325 MG TABLET 650 MG PO ×2 (10:52→22:59)
[2023-11-02 10:57] LABS: Glucometer 304 mg/dL (74-106)
[2023-11-02 11:47] LABS: Microalbum Creatinine Ratio Ur 136.3 mg/g (0.0-29.9); Microalbumin Urine Random 1.8 mg/dL (<=30.0)
--- NOTE | 2023-11-02 12:40 | CM.NOTE ---
Discussed discharge planning with pt, pt wishes to continue with [facility] . Updates sent to [facility].
[2023-11-02] MEDS: POTASSIUM CHLORIDE 10 MEQ ER TABLET 20 MEQ PO ×2 (13:55→22:42)
--- NOTE | 2023-11-02 14:10 | P.PODCN_ITS ---
[facility] - Podiatry Data of Consult Patient: known to practice within the last 3 years Consult date: 11/02/23 Requesting physician: Vangie Mata DO Primary care provider: VINNIE STEWART Consult Narrative Reason for consult: Bilateral heel ulcers Narrative: Mr Kauffman is a 68-year-old male known to our wound center with past medical history of severe decompensated systolic heart failure with an ejection fraction of approximately ten percent. Also with a history of anasarca, chronic obstructive pulmonary disease, hyperlipidemia, type 2 diabetes with peripheral neuropathy, atrial fibrillation on chronic anticoagulation with Coumadin, and Chronic Diabetic wounds, frequent falls. Patient is well known to our hospital for frequent admissions. Patient has been falling at home and recently had a fracture of the left 10-12th ribs. He's been prescribed narcotics for pain. Last night was brought in my EMS for altered mental status after eating dinner. He was found to have hyponatremia, multifocal pneumonia and sepsis. Patient was admitted to the hospitalist service and ICU for work up. Podiatry consulted for evaluation of bilateral decubitus heel ulcers. Patient is unsure of when they began he has missed several wound care appointments over the last few months. We had been following for ulceration to his right hallux which is nearly completely healed despite this. He denied any other acute lower extremity complaints and denied any constitutional issues to me at time of visit. cc:: CC: Vangie Mata DO [facility] Medical History (Updated 11/02/23 @ 12:46 by Vangie Mata DO) Chronic wound of extremity Dyspnea ?R06.00 - Dyspnea, unspecified (ICD-10) CKD (chronic kidney disease) stage 4, GFR 15-29 ml/min ?N18.4 - Chronic kidney disease, stage 4 (severe) (ICD-10) HLD (hyperlipidemia) ?E78.5 - Hyperlipidemia, unspecified (ICD-10) Fluid retention ?R60.9 - Edema, unspecified (ICD-10) Acute urinary retention ?R33.8 - Other retention of urine (ICD-10) Elevated INR ?R79.1 - Abnormal coagulation profile (ICD-10) Closed head injury ?S09.90XA - Unspecified injury of head, initial encounter (ICD-10) Cardiac defibrillator in place ?Z95.810 - Presence of automatic (implantable) cardiac defibrillator (ICD-10) Pacemaker ?Z95.0 - Presence of cardiac pacemaker (ICD-10) Pneumonia ?J18.9 - Pneumonia, unspecified organism (ICD-10) Ascites ?R18.8 - Other ascites (ICD-10) COPD (chronic obstructive pulmonary disease) ?J44.9 - Chronic obstructive pulmonary disease, unspecified (ICD-10) CAD (coronary artery disease) ?I25.10 - Atherosclerotic heart disease of [place] coronary artery without angina pectoris (ICD-10) Benign essential hypertension ?I10 - Essential (primary) hypertension (ICD-10) Anemia in chronic kidney disease ?N18.9 - Chronic kidney disease, unspecified (ICD-10) ?D63.1 - Anemia in chronic kidney disease (ICD-10) Paroxysmal atrial fibrillation ?I48.0 - Paroxysmal atrial fibrillation (ICD-10) Type 2 diabetes mellitus with hyperglycemia ?E11.65 - Type 2 diabetes mellitus with hyperglycemia (ICD-10) Hypothyroid ?E03.9 - Hypothyroidism, unspecified (ICD-10) Chronic kidney disease, stage 3a ?N18.31 - Chronic kidney disease, stage 3a (ICD-10) Chronic HFrEF (heart failure with reduced ejection fraction) ?I50.22 - Chronic systolic (congestive) heart failure (ICD-10) Surgical History History of appendectomy ?Z90.49 - Acquired absence of other specified parts of digestive tract (ICD- 10) Family History Mother Family history of CHF (congestive heart failure) Brother Family history of cancer Social History Within the past year, how often did you have a drink containing alcohol: never Within the past year, how often did you have six or more drinks on one occasion: never Score interpretation: A score less than 4 is consistent with normal alcohol consumption. 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 Known occupational exposures/hazards: No Highest level of school completed/degree received: high school graduate Do you want help with school or training: No Are you now , , , , never or living with a partner: living with partner In a typical week, how many times do you talk on the telephone with family, friends, or neighbors: 3 or more times per week How often do you get together with friends or relatives: 3 or more times per week How often do you attend oriental orthodox or scientologist services: never Do you belong to any clubs or organizations such as oriental orthodox groups unions, fraternal or athletic groups, or school groups: no Total score: 2 Score interpretation: A score of greater than or equal to 2 indicates the lowest level of social isolation. Little interest or pleasure in doing things: not at all Feeling down, depressed, or hopeless: not at all Feel stressed/tense/nervous/anxious/difficulty sleeping: not at all Due to disability, difficulty making decisions: No Do you think of yourself as: straight/heterosexual Gender Identity: male Exam Narrative Exam Narrative: Vascular: DP PT pulses faintly palpable, CFT delayed to digits. Skin temperature warm to cool from proximal distal without focal increase. No erythema edema or ecchymosis. Neuro: Light touch and gross sensation intact. Protective sensation diminished. Derm: Laceration to right hallux IPJ nearly fully epithelialized with partial- thickness opening to the lateral aspect of the laceration. Full-thickness ulceration to the bilateral heel with overlying dry stable eschar, portions of the ulcer probe to Achilles tendon, negative probe to bone. No active purulence, OLIVE ulcerative maceration. No fluctuance crepitus or bogginess. No tracking tunneling or undermining. MSK: Strength and range of motion deferred. Achilles tendon is palpably intact bilaterally. No palpatory tenderness elicited upon exam. Compartment soft compressible, no pain with calf or thigh compression. Constitutional Vital Signs, click to edit/add: Last Vital Signs Temp 97.6 F 11/02/23 12:00 Pulse 86 11/02/23 14:00 Resp 16 11/02/23 12:00 BP 114/65 11/02/23 12:00 Pulse Ox 94 L 11/02/23 12:00 O2 Del Method Room Air 11/02/23 12:00 O2 Flow Rate 2 11/01/23 22:00 Assessment and Plan Assessment and Plan (1) Sepsis: Qualifiers: Sepsis type: sepsis due to unspecified organism Sepsis acute organ dysfunction status: without acute organ dysfunction Qualified Code(s): A41.9 - Sepsis, unspecified organism (2) Pneumonia: Qualifiers: Laterality: bilateral Lung location: unspecified part of lung Pneumonia type: due to unspecified organism Qualified Code(s): J18.9 - Pneumonia, unspecified organism (3) Hyponatremia: (4) Hypokalemia: (5) Cellulitis and abscess of foot: (6) Left rib fracture: Qualifiers: Encounter type: subsequent encounter Fracture healing: with delayed healing Fracture type: closed Rib fracture type: multiple ribs Qualified Code(s): S22.42XG - Multiple fractures of ribs, left side, subsequent encounter for fracture with delayed healing (7) Paroxysmal atrial fibrillation: (8) Type 2 diabetes mellitus with hyperglycemia: Qualifiers: Diabetes mellitus fdc insulin use: without intermediate manager use Qualified Code(s): E11.65 - Type 2 diabetes mellitus with hyperglycemia (9) Chronic HFrEF (heart failure with reduced ejection fraction): (10) COPD (chronic obstructive pulmonary disease): Qualifiers: COPD type: chronic bronchitis Chronic bronchitis type: unspecified Qualified Code(s): J42 - Unspecified chronic bronchitis (11) Altered mental status: Plan Patient examined evaluated. All fine discussed with patient all questions answered to patient's satisfaction. Labs and imaging reviewed. Leukocytosis at 20,000, likely attributed to multifocal pneumonia as there are no overt signs of acute infection to the bilateral lower extremity. Recommend dressing the bilateral heels with Betadine moistened gauze, dry sterile dressing and change every other day. Offload with PRAFO boots or pillows to elevate the posterior heel off the bed. Wounds would benefit from surgical debridement and possible grafting, however due to his longstanding cardiac history with ejection fraction 10 to 20% as well as his acute pneumonia he was is a poor surgical candidate and therefore recommend continuing with conservative wound care as above. Rest per primary, please call with any questions or concerns.
[2023-11-02 15:34] LABS: Glucometer 201 mg/dL (74-106)
[2023-11-02 15:50] LABS: Potassium 3.4 mmol/L (3.5-5.1)
[2023-11-02 16:06] LABS: Glucose 203 mg/dL (74-106)
[2023-11-02] MEDS: ISOSORBIDE DINITRATE 20 MG TABLET PO (16:18)
[2023-11-02 19:29] LABS: Glucometer 234 mg/dL (74-106)
[2023-11-02] MEDS: ATORVASTATIN CALCIUM 40 MG TABLET 80 MG PO (20:22)
[2023-11-02] MEDS: BUMETANIDE 1 MG TABLET 2 MG PO (20:25)
[2023-11-03] VITALS (90 sets, daily range): BP systolic 110–128; BP diastolic 66–85; PULSE 77–97; RESP 2–44; TEMP 36.3–36.8; O2SAT 94–99
[2023-11-03] MEDS: PIPERACILLIN SODIUM/TAZOBACTAM 3.375 GM in 0.9 % SODIUM CHLORIDE 50 ML IV ×3 (03:39→20:24)
[2023-11-03] MEDS: 0.9 % SODIUM CHLORIDE 1,000 ML 100 ML IV (03:39)
[2023-11-03] MEDS: ACETAMINOPHEN 325 MG TABLET 650 MG PO (03:47)
[2023-11-03 05:44] LABS: Basophils Absolute Auto 0.1 10^3/uL (0.0-0.1); Basophils Percent Auto 0.5 % (0.2-2.0); Eosinophils Absolute Auto 0.5 10^3/uL (0.0-0.7); Eosinophils Percent Auto 3.5 % (0.9-7.0); Immature Granulocytes Abs Auto 0.09 10^3/uL (0.00-0.03); Immature Granulocytes Pct Auto 0.7 % (0.0-0.5); Lymphocytes Absolute Auto 1.9 10^3/uL (1.2-3.8); Lymphocytes Percent Auto 15.1 % (20.5-60.0); Mean Corpuscular HGB Conc 33.3 g/dL (29.9-35.2); Mean Corpuscular Hemoglobin 28.5 pg (25.9-34.0); Mean Corpuscular Volume 85.5 fL (80.0-94.0); Mean Platelet Volume 9.6 fL (9.5-13.5); Monocytes Absolute Auto 0.9 10^3/uL (0.3-0.8); Monocytes Percent Auto 7.3 % (1.7-12.0); Neutrophils Absolute Auto 9.3 10^3/uL (1.4-6.5); Neutrophils Percent Auto 72.9 % (43.0-75.0); Platelet Count 230 10^3/uL (150-450); Red Blood Count 4.56 10^6/uL (4.70-6.10); Red Cell Distribution Width 16.9 % (11.0-15.0); White Blood Count 12.7 10^3/uL (4.0-11.0)
[2023-11-03 06:01] LABS: INR 1.24
[2023-11-03 06:19] LABS: Alanine Aminotransferase 27 U/L (16-63); Albumin Globulin Ratio 0.6; Albumin Level 2.7 g/dL (3.4-5.0); Alkaline Phosphatase 115 U/L (46-116); Anion Gap 11.4; Aspartate Amino Transferase 24 U/L (15-37); Bilirubin Total 1.1 mg/dL (0.2-1.0); Calcium 8.2 mg/dL (8.5-10.1); Carbon Dioxide 28.6 mmol/L (21.0-32.0); Chloride 91 mmol/L (98-107); Estimated GFR (African America >60 (>=60); Estimated GFR (Non-African Ame 50 (>=60); Globulin 4.5 g/dL; Glucose 237 mg/dL (74-106); Sodium 128 mmol/L (136-145); Total Protein 7.2 g/dL (6.4-8.2)
[2023-11-03] MEDS: POTASSIUM CHLORIDE 10 MEQ ER TABLET 20 MEQ PO (06:31)
[2023-11-03] MEDS: LEVOTHYROXINE SODIUM 25 MCG TABLET 50 MCG PO (06:31)
[2023-11-03] MEDS: HYDROCODONE/ACET 5-325 MG TABLET 1 TAB PO ×3 (06:31→21:47)
[2023-11-03 07:54] LABS: Glucometer 168 mg/dL (74-106)
[2023-11-03] MEDS: INSULIN ASPART 300 UNIT/3 ML PEN SUBQ ×3 (08:31→21:48)
[2023-11-03] MEDS: ISOSORBIDE DINITRATE 20 MG TABLET PO ×2 (08:32→18:48)
[2023-11-03] MEDS: BUMETANIDE 1 MG TABLET 2 MG PO (08:32)
[2023-11-03] MEDS: ASPIRIN 81 MG TABLET.DR PO (08:32)
[2023-11-03] MEDS: DIGOXIN 125 MCG TABLET PO (08:32)
[2023-11-03] MEDS: METOLAZONE 2.5 MG TABLET PO (08:32)
[2023-11-03] MEDS: ENSURE HP 237 ML LIQUID PO ×2 (08:33→21:44)
[2023-11-03] MEDS: SPIRONOLACTONE 25 MG TABLET PO (08:36)
[2023-11-03] MEDS: GABAPENTIN 400 MG CAPSULE PO ×2 (08:36→21:44)
[2023-11-03] MEDS: CARVEDILOL 25 MG TABLET PO ×2 (08:36→21:44)
[2023-11-03] MEDS: WARFARIN SODIUM 2.5 MG TABLET 5 MG PO (08:39)
[2023-11-03] MEDS: VANCOMYCIN HCL 1,500 MG in 0.9 % SODIUM CHLORIDE 500 ML 250 MG IV (09:25)
--- NOTE | 2023-11-03 10:17 | PT.DAILY ---
Physical Therapy Daily Note PT Daily Note/Assess Start: 11/02/23 11:04 Freq: Status: Active Protocol: Document 11/03/23 10:15 AGATA (Rec: 11/03/23 10:17 AGATA [id number]) Physical Therapy Daily Note/Assessment Time In/Time Out Time In 09:00 Time Out 09:15 Pain In Pain N/A Pain Out Pain N/A Subjective Subjective Sitting in BS chair upon arrival. Agrees to PT. C/o L flank pain. Therapeutic Exercise Time Therapeutic Exercise Minutes (minutes) 3 Therapeutic Exercise Units 0 Therapeutic Exercise Treatment Therapeutic Exercise Treatment Seated AP, LAQ, and marches 10x. Standing marches, hip flexion, and hip abd 10x ea. Therapeutic Activity Time Therapeutic Activity Minutes (minutes) 8 Therapeutic Activity Units 1 Therapeutic Activity Treatment Chair Transfer Ability Contact Guard Assist Therapeutic Activity Comments Sit>stand from BS chair CGA. Pt amb 200' with RW, SBA with assist for IV pole. Pt returned to room for seated/ standing ther ex. Remains in BS chair upon completion with call light in reach and needs met. Total Physical Therapy Time Total Therapy Minutes 11 Total Physical Therapy Units 1 Summary Daily Note Summary Improved gait endurance.
--- NOTE | 2023-11-03 11:00 | P.PN_ITS ---
Progress Note: Subjective Subjective Interval history: Feels like his breathing is overall improved. Altered mental status has resolved. Pain persisting with rib fractures but controlled with medication Exam Constitutional Vital Signs, click to edit/add: Last Vital Signs Temp 97.8 F 11/03/23 08:00 Pulse 85 11/03/23 10:30 Resp 20 11/03/23 10:30 BP 113/77 11/03/23 07:47 Pulse Ox 99 11/03/23 08:10 O2 Del Method Room Air 11/03/23 08:00 O2 Flow Rate 2 11/02/23 16:00 Documenting provider has reviewed patient's vital signs: yes Common normals: no apparent distress HENMT Common normals: moist oral mucous membranes Chest Common normals: inspection of chest normal Respiratory Common normals: normal respiratory effort, no retractions and clear to auscul tation bilaterally Cardio Common normals: regular rate; irregular rhythm Rhythm: abnormal rhythm GI Common normals: Normal to inspection, nondistended, normoactive bowel sounds present Progress Note: Objective Labs Labs: Short CBC 11/03/23 Range/Units 05:26 WBC 12.7 H (4.0-11.0) 10^3/uL Hgb 13.0 L (14.0-18.0) g/dL Hct 39.0 L (42.0-54.0) % Plt Count 230 (150-450) 10^3/uL BMP 11/02/23 11/03/23 13:35 05:26 Sodium 128 L Potassium 3.4 L 3.0 L Chloride 91 L Carbon Dioxide 28.6 BUN 35.0 H Creatinine 1.40 H Glucose 203 H 237 H Calcium 8.2 L Liver Function 11/03/23 Range/Units 05:26 Total Bilirubin 1.1 H (0.2-1.0) mg/dL AST 24 (15-37) U/L ALT 27 (16-63) U/L Alkaline Phosphatase 115 (46-116) U/L Albumin 2.7 L (3.4-5.0) g/dL Progress Note: A&P Assessment and Plan (1) Sepsis: Qualifiers: Sepsis acute organ dysfunction status: without acute organ dysfunction Sepsis type: sepsis due to unspecified organism Qualified Code(s): A41.9 - Sepsis, unspecified organism (2) Pneumonia: Qualifiers: Laterality: bilateral Lung location: unspecified part of lung Pneumonia type: due to unspecified organism Qualified Code(s): J18.9 - Pneumonia, unspecified organism (3) Hyponatremia: (4) Hypokalemia: (5) Cellulitis and abscess of foot: (6) Left rib fracture: Qualifiers: Encounter type: subsequent encounter Fracture healing: with delayed healing Fracture type: closed Rib fracture type: multiple ribs Qualified Code(s): S22.42XG - Multiple fractures of ribs, left side, subsequent encounter for fracture with delayed healing (7) Paroxysmal atrial fibrillation: (8) Type 2 diabetes mellitus with hyperglycemia: Qualifiers: Diabetes mellitus usp insulin use: without usp use Qualified Code(s): E11.65 - Type 2 diabetes mellitus with hyperglycemia (9) Chronic HFrEF (heart failure with reduced ejection fraction): (10) COPD (chronic obstructive pulmonary disease): Qualifiers: COPD type: chronic bronchitis Chronic bronchitis type: unspecified Qualified Code(s): J42 - Unspecified chronic bronchitis (11) Altered mental status: Plan (1) Sepsis, respiratory distress, elevated liver enzymes, leukocytosis of 20.8, lactate 2.8, temp 101.9, severe sepsis with multisystem organ dysfunction (liver, heme, neuro, kidney) -continue treatment plan as patient is overall improved (2) Pneumonia: multifocal seen on CT chest, small left pleural effusion seen and RML infiltrates. -Patient overall improvement will maintain current treatment, possible transfer to [facility] later this morning (3) Hyponatremia: improving with IVF (4) Hypokalemia:-Down somewhat today, increase supplementation (5) Cellulitis and abscess of foot:continue vanc and zosyn, wound consult (6) Left rib fracture: - X3 ribs -continue with pain control and OPEP to improve atelectasis (7) Paroxysmal atrial fibrillation:-INR still low, increase dose (8) Type 2 diabetes mellitus with hyperglycemia: Sugars are somewhat elevated today, increase insulin sliding scale (9) Chronic HFrEF (heart failure with reduced ejection fraction): Echo improved from previous (10) COPD (chronic obstructive pulmonary disease): Acute exacerbation of COPD secondary to the above-continue with current treatment plan (11) Altered mental status: 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 Urinary Catheter Management Urinary Catheter Management 2-way Urethral: Cath placed during this visit: yes, but has since been removed by the nurse Insertion date: 11/01/23 Insertion time: 22:20 Removal date: 11/02/23 Removal time: 09:50
[2023-11-03] MEDS: POTASSIUM CHLORIDE 10 MEQ ER TABLET 40 MEQ PO ×2 (14:39→21:45)
[2023-11-03 17:40] LABS: Glucometer 245 mg/dL (74-106)
[2023-11-03] MEDS: ATORVASTATIN CALCIUM 40 MG TABLET 80 MG PO (20:25)
[2023-11-03] MEDS: DOCUSATE SODIUM 100 MG CAPSULE PO (21:44)
[2023-11-04] VITALS (14 sets, daily range): BP systolic 124–125; BP diastolic 73–76; PULSE 85–92; RESP 10–34; TEMP 36.3–36.8; O2SAT 95
[2023-11-04] MEDS: PIPERACILLIN SODIUM/TAZOBACTAM 3.375 GM in 0.9 % SODIUM CHLORIDE 50 ML IV (03:56)
[2023-11-04] MEDS: HYDROCODONE/ACET 5-325 MG TABLET 1 TAB PO ×2 (04:10→11:06)
[2023-11-04 04:57] LABS: Basophils Absolute Auto 0.1 10^3/uL (0.0-0.1); Basophils Percent Auto 0.5 % (0.2-2.0); Eosinophils Absolute Auto 0.5 10^3/uL (0.0-0.7); Eosinophils Percent Auto 3.5 % (0.9-7.0); Hematocrit 41.4 % (42.0-54.0); Hemoglobin 13.5 g/dL (14.0-18.0); Immature Granulocytes Abs Auto 0.12 10^3/uL (0.00-0.03); Immature Granulocytes Pct Auto 0.9 % (0.0-0.5); Lymphocytes Absolute Auto 2.7 10^3/uL (1.2-3.8); Lymphocytes Percent Auto 20.3 % (20.5-60.0); Mean Corpuscular HGB Conc 32.6 g/dL (29.9-35.2); Mean Corpuscular Volume 85.9 fL (80.0-94.0); Mean Platelet Volume 9.4 fL (9.5-13.5); Monocytes Absolute Auto 0.9 10^3/uL (0.3-0.8); Monocytes Percent Auto 6.6 % (1.7-12.0); Neutrophils Percent Auto 68.2 % (43.0-75.0); Platelet Count 271 10^3/uL (150-450); Red Blood Count 4.82 10^6/uL (4.70-6.10); Red Cell Distribution Width 16.7 % (11.0-15.0); White Blood Count 13.2 10^3/uL (4.0-11.0)
[2023-11-04 05:16] LABS: INR 1.43; Prothrombin Time 14.9 sec (9.0-11.6)
[2023-11-04 05:22] LABS: Alanine Aminotransferase 24 U/L (16-63); Albumin Globulin Ratio 0.6; Albumin Level 2.8 g/dL (3.4-5.0); Alkaline Phosphatase 116 U/L (46-116); Anion Gap 8.4; Aspartate Amino Transferase 19 U/L (15-37); BUN Creatinine Ratio 23.9; Bilirubin Total 0.9 mg/dL (0.2-1.0); Calcium 8.4 mg/dL (8.5-10.1); Carbon Dioxide 30.6 mmol/L (21.0-32.0); Chloride 92 mmol/L (98-107); Estimated GFR (African America 60 (>=60); Estimated GFR (Non-African Ame 49 (>=60); Globulin 4.9 g/dL; Glucose 249 mg/dL (74-106); Sodium 127 mmol/L (136-145); Total Protein 7.7 g/dL (6.4-8.2)
[2023-11-04] MEDS: LEVOTHYROXINE SODIUM 25 MCG TABLET 50 MCG PO (06:03)
[2023-11-04] MEDS: POTASSIUM CHLORIDE 10 MEQ ER TABLET 40 MEQ PO (06:03)
[2023-11-04] MEDS: INSULIN ASPART 300 UNIT/3 ML PEN SUBQ (08:46)
[2023-11-04] MEDS: ENSURE HP 237 ML LIQUID PO (08:47)
[2023-11-04] MEDS: BUMETANIDE 1 MG TABLET 2 MG PO (08:47)
[2023-11-04] MEDS: ASPIRIN 81 MG TABLET.DR PO (08:47)
[2023-11-04] MEDS: ISOSORBIDE DINITRATE 20 MG TABLET PO (08:47)
[2023-11-04] MEDS: DIGOXIN 125 MCG TABLET PO (08:47)
[2023-11-04] MEDS: WARFARIN SODIUM 5 MG TABLET PO (08:48)
[2023-11-04] MEDS: CIPROFLOXACIN IN 5 % DEXTROSE 400 MG/200 ML PIGGYBACK 200 MG IV (08:48)
[2023-11-04] MEDS: METOLAZONE 2.5 MG TABLET PO (08:48)
[2023-11-04] MEDS: CARVEDILOL 25 MG TABLET PO (08:50)
[2023-11-04] MEDS: SPIRONOLACTONE 25 MG TABLET PO (08:50)
[2023-11-04] MEDS: GABAPENTIN 400 MG CAPSULE PO (08:50)
--- NOTE | 2023-11-04 09:04 | P.DS_ITS ---
DS: Providers Provider Date of admission: 11/02/23 02:59 Primary care physician: VINNIE STEWART Consults: 11/02/23 Occupational Therapy Eval and Treat Routine Reason for consultation: weakness Physical Therapy Eval and Treat Routine Reason for consultation: weakness 11/02/23 11:51 Consult to Wound Care Routine Consulting Provider: Salo Asencio Reason for consultation: bilateral heel and leg wounds Has provider been notified: No DS: Diagnosis Discharge Diagnosis (1) Sepsis: Qualifiers: Sepsis acute organ dysfunction status: without acute organ dysfunction Sepsis type: sepsis due to unspecified organism Qualified Code(s): A41.9 - Sepsis, unspecified organism (2) Pneumonia: Qualifiers: Laterality: bilateral Lung location: unspecified part of lung Pneumonia type: due to unspecified organism Qualified Code(s): J18.9 - Pneumonia, unspecified organism (3) Hyponatremia: (4) Hypokalemia: (5) Cellulitis and abscess of foot: (6) Left rib fracture: Qualifiers: Encounter type: subsequent encounter Fracture healing: with delayed healing Fracture type: closed Rib fracture type: multiple ribs Qualified Code(s): S22.42XG - Multiple fractures of ribs, left side, subsequent encounter for fracture with delayed healing (7) Paroxysmal atrial fibrillation: (8) Type 2 diabetes mellitus with hyperglycemia: Qualifiers: Diabetes mellitus supervisor intermediates insulin use: without supervisor intermediates use Qualified Code(s): E11.65 - Type 2 diabetes mellitus with hyperglycemia (9) Chronic HFrEF (heart failure with reduced ejection fraction): (10) COPD (chronic obstructive pulmonary disease): Qualifiers: COPD type: chronic bronchitis Chronic bronchitis type: unspecified Qualified Code(s): J42 - Unspecified chronic bronchitis (11) Altered mental status: Plan (1) Sepsis, respiratory distress, elevated liver enzymes, leukocytosis of 20.8, lactate 2.8, temp 101.9, severe sepsis with multisystem organ dysfunction (liver, heme, neuro, kidney) (2) Pneumonia: Due to Klebsiella pneumonia (3) Hyponatremia: (4) Hypokalemia: (5) Cellulitis and abscess of foot: (6) Left rib fracture: - X3 ribs (7) Paroxysmal atrial fibrillation: (8) Type 2 diabetes mellitus with hyperglycemia: (9) Chronic HFrEF (heart failure with reduced ejection fraction): (10) COPD (chronic obstructive pulmonary disease): (11) Altered mental status: (12) moderate protein gayle malnutrition (13) iron deficiency anemia- (14) elevated liver enzymes due to passive congestion from heart failure DS: Summary Hospital Course Hospital Course: Patient admitted to the hospital with increasing shortness of breath and acute hypoxic respiratory failure secondary to pneumonia possible aspiration, patient treated with IV antibiotics. He also had altered mental status. Infection did come back fairly resistant. Was resistant to initial antibiotic choices but is sensitive to Cipro. Patient is overall improving with the white blood cell count improving, his altered mental status is resolved, liver function test improving at this point he can be discharged home in improving condition. Medications see list. Follow-up with his PCP within the next week. Time Spent with Patient Time attestation: Total time spent providing and/or coordinating discharge services: Exam Constitutional Vital Signs, click to edit/add: Last Vital Signs Temp 98.3 F 11/04/23 07:49 Pulse 85 11/04/23 07:46 Resp 20 11/04/23 07:46 BP 125/76 11/04/23 07:46 Pulse Ox 95 11/04/23 04:00 O2 Del Method Room Air 11/04/23 07:49 O2 Flow Rate 2 11/02/23 16:00 Documenting provider has reviewed patient's vital signs: yes Common normals: no apparent distress HENOH Common normals: moist oral mucous membranes Chest Common normals: inspection of chest normal Respiratory Common normals: normal respiratory effort, no retractions and clear to auscultation bilaterally Cardio Common normals: regular rate; irregular rhythm Rhythm: abnormal rhythm GI Common normals: Normal to inspection, nondistended, normoactive bowel sounds present DS: Data Data Completed and Pending Labs on day of discharge: Labs from last 24 hours 11/04/23 11/03/23 04:40 17:38 WBC 13.2 H RBC 4.82 Hgb 13.5 L Hct 41.4 L MCV 85.9 MCH 28.0 MCHC 32.6 RDW 16.7 H Plt Count 271 MPV 9.4 L Neut % (Auto) 68.2 Lymph % (Auto) 20.3 L [place] % (Auto) 6.6 Eos % (Auto) 3.5 Baso % (Auto) 0.5 Neut # (Auto) 9.0 H Lymph # (Auto) 2.7 [place] # (Auto) 0.9 H Eos # (Auto) 0.5 Baso # (Auto) 0.1 Abs Immat Gran (auto) 0.12 H Imm/Tot Granulo (auto) 0.9 H PT 14.9 H INR 1.43 Sodium 127 L Potassium 4.0 Chloride 92 L Carbon Dioxide 30.6 Anion Gap 8.4 BUN 34.0 H Creatinine 1.42 H Est GFR ( Amer) 60 Est GFR (Non-Af Amer) 49 L BUN/Creatinine Ratio 23.9 Glucose 249 H Calcium 8.4 L Total Bilirubin 0.9 AST 19 ALT 24 Alkaline Phosphatase 116 Total Protein 7.7 Albumin 2.8 L Globulin 4.9 Albumin/Globulin Ratio 0.6 POC Glucose 245 H Preliminary micro results at discharge 11/01/23 21:57 Blood Culture Result 1 - Preliminary Blood NO GROWTH AT 36-48 HOURS. FINAL TO FOLLOW. 11/01/23 21:47 Blood Culture Result 1 - Preliminary Blood NO GROWTH AT 36-48 HOURS. FINAL TO FOLLOW. Discharge Plan Discharge Disposition: Home, Self-Care Condition: Fair Discharge Medications: New ciprofloxacin HCl [Cipro] 500 mg tablet 500 mg PO Q12H Qty: 20 0RF Continued atorvastatin 80 mg tablet 80 mg PO DAILY carvedilol 25 mg tablet 25 mg PO Q12H Farxiga 10 mg tablet 10 mg PO DAILY aspirin [Adult Low Dose Aspirin] 81 mg tablet,delayed release (DR/EC) 81 mg PO DAILY hydrocodone-acetaminophen 5-325 mg tablet 1 tab PO Q8H PRN (Reason: pain, moderate) gabapentin 400 mg capsule 400 mg PO Q12H spironolactone 25 mg tablet 25 mg PO QAM levothyroxine 50 mcg tablet 50 mcg PO .ACB isosorbide dinitrate 20 mg tablet 20 mg PO BIDWM digoxin 125 mcg (0.125 mg) tablet 0.125 mg PO QDAY potassium chloride [Klor-Con M10] 10 mEq Tablet,Er Particles/Crystals 20 meq PO TID Qty: 90 11RF bumetanide 2 mg tablet 2 mg PO BID Qty: 60 0RF oxycodone-acetaminophen [Percocet] 5-325 mg tablet 1 tab PO Q6H PRN (Reason: pain) 5 Days Qty: 20 0RF warfarin 2.5 mg tablet 2.5 mg PO DAILY Patient Comments: DIRECTED BY CLINIC nitroglycerin 0.4 mg tablet, sublingual 0.4 mg sublingual Q5M PRN (Reason: chest pain) hydralazine 50 mg tablet 50 mg PO Q8H Rx Instructions: PER RETAIL FILL HX - LAST FILLED 02/20/23 #270 FOR A 90 DAY SUPPLY cyanocobalamin (vitamin B-12) 1,000 mcg tablet extended release 1,000 mcg PO DAILY amitriptyline 25 mg tablet 25 mg PO .COMPLEX PRN (Reason: sleep) Rx Instructions: 25 mg orally nightly; PER RETAIL FILL HX - LAST FILLED 01/30/23 #90 FOR A 90 DAY SUPPLY PRN; metolazone 2.5 mg Tablet 2.5 mg PO DAILY Activity: increase activity as tolerated Diet: advance to your usual diet Print Language: Armenian Patient Instructions: Ciprofloxacin (By mouth) (Cipro), Rib Fracture (DC), Meal Planning with the Plate Method (DC), Diabetic Foot Ulcers (DC), Bacterial Pneumonia (DC), Chronic Wounds (DC) Forms: Portal Instructions Follow Up Appointments: Follow up with family physician Dr. Martina Stewart in one week after discharge [phone]
--- NOTE | 2023-11-05 15:24 | CM.DCFOLLOWU ---
Person spoke with: patient How are you feeling? not too bad, my ribs still hurt tho. How is your pain? 01/26 rib pain Did you understand your discharge instructions? yes Do you have any questions about your discharge instructions? no Were you given any prescriptions at discharge? yes Were you able to get your prescriptions filled? yes Do you understand how to take your medications as ordered? yes Do you have any questions about your follow up appointment and do you plan to keep your follow up appointment? has not scheduled appointment yet with Dr. Abel. Pt. stated he would make this appointment tomorrow. Instructed the patient of the importance of this appointment and frequent hospital visits. Pt. also has [facility] and he feels they will be coming tomorrow. He states they usually come on Tuesdays . Is there anything else that you would like to discuss? no Questions/Comments/Concerns/Other: n/a
== END 2023-11-04 11:25 | disposition home or self-care (01) | DRG 871 ==
LOC: ER 11-02 02:09 → ICU 11-02 03:01
PROVIDERS: Family Medicine; Internal Medicine; Physician Assistant; Admitting Provider Family Medicine; Emergency Provider Emergency Medicine; PCP Family Medicine; Visit Provider Family Medicine
DX: A41.9 Sepsis, unspecified organism (principal); J18.9 Pneumonia, unspecified organism; L89.623 Pressure ulcer of left heel, stage 3; L89.613 Pressure ulcer of right heel, stage 3; J96.01 Acute respiratory failure with hypoxia; I13.0 Hypertensive heart and chronic kidney disease with heart failure and stage 1 through stage 4 chronic kidney disease, or unspecified chronic kidney disease; S22.42XA Multiple fractures of ribs, left side, initial encounter for closed fracture; N18.4 Chronic kidney disease, stage 4 (severe); I50.22 Chronic systolic (congestive) heart failure; J44.0 Chronic obstructive pulmonary disease with (acute) lower respiratory infection; L03.119 Cellulitis of unspecified part of limb; E87.1 Hypo-osmolality and hyponatremia; L02.619 Cutaneous abscess of unspecified foot; E44.0 Moderate protein-calorie malnutrition; R47.01 Aphasia; Z91.81 History of falling; Z79.82 Long term (current) use of aspirin; Z79.899 Other long term (current) drug therapy; Z79.01 Long term (current) use of anticoagulants; E78.5 Hyperlipidemia, unspecified; Z95.810 Presence of automatic (implantable) cardiac defibrillator; Z87.01 Personal history of pneumonia (recurrent); I25.10 Atherosclerotic heart disease of native coronary artery without angina pectoris; D63.1 Anemia in chronic kidney disease; I48.0 Paroxysmal atrial fibrillation; E11.22 Type 2 diabetes mellitus with diabetic chronic kidney disease; Z87.891 Personal history of nicotine dependence; E11.65 Type 2 diabetes mellitus with hyperglycemia; R53.1 Weakness; E87.6 Hypokalemia; W19.XXXA Unspecified fall, initial encounter; E03.9 Hypothyroidism, unspecified; E11.42 Type 2 diabetes mellitus with diabetic polyneuropathy; D50.9 Iron deficiency anemia, unspecified; R74.8 Abnormal levels of other serum enzymes; R65.20 Severe sepsis without septic shock; E11.628 Type 2 diabetes mellitus with other skin complications; Z68.26 Body mass index [BMI] 26.0-26.9, adult
CPT/HCPCS: 0202U; 36415; 36600; 51702; 51798; 70450; 71260; 72125; 74177; 80048; 80053; 80162; 80307; 80320; 81003; 82043; 82140; 82570; 82805; 82947; 82948; 83605; 83880; 84132; 84156; 84300; 84443; 84484; 85025; 85610; 87040; 93005; 93308; 93356; 94667; 94668; 96361; 96365; 96366; 96367; 96368; 97162; 97165; 97530; 99285; J3370; J3480; Q3014; Q9966

== ENCOUNTER 2023-11-09 15:04 | Outpatient (OUT) | payer MEDICARE, SELFPAY ==
--- OUTSIDE RECORDS SUMMARY | 2023-11-09 15:11 | XMS_ITS | CCD ---
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 Name Role Phone Vinnie Stewart Primary Care Provider Unavailab Valentin Gomez (WND) Attending Provider Unavaila Vinnie Lemon Primary Care Provider [phone] Nicolette Manzano Attending Provider [phone] Ivon Kat Attending Provider [phone] [place] Procedure Practitioner Unavailab VINNIE Nash Primary Care Unavailable LOWELL CRAFT Referring Unavailable ANNABELLE BOYD Surgeon Unavailable CECILE MAJOR Admitting Unavailable CECILE MAJOR Attending Unavailable [place] Procedure Practitioner Unavailab BALBIR Cardenas Surgeon Unavailable Vinnie Stewart Unavailable Vinnie Stewart Unavailable Brittnee Spain Unavailable Ruthie Guzman Unavailable Balbir Ba Unavailable Simba Kaufman Unavailable Gisselle Dickey Unavailable DO Vinnie Stewart Primary Care Provider Map, CHARISSE Wright Attending Provider DO Ethan Cummings II Attending Provider MD Simba Kaufman Referring Provider [phone] DO Vinnie Stewart Primary Care Provider DO Ethan Cummings II Attending Provider [phone] MD Simba Kaufman Referring Provider Mapus, SHOE PARTS CASER Nicolette Wright Attending Provider DO Alejandro Duncan Emergency Provider [phone] DO Yakov To Admit Provider DO Yakov To Attending Provider [phone] SHIRLEY, BRYCE Admitting Unavailable SHIRLEY, BRYCE Attending Unavailable SHIRLEY, BRYCE Consulting Unavailable STEWART, VINNIE Primary Care Unavailable FAWWAD, BROWN H Attending Unavailable FAWWAD, BROWN H Admitting Unavailable STEWART, VINNIE Primary Care Unavailable FAWWAD, BROWN H Admitting Unavailable FAWWAD, BROWN H Attending Unavailable STEWART, VINNIE Primary Care Unavailable SEPIDEH ., NIK Admitting Unavailable SEPIDEH ., NIK Attending Unavailable JACOBSON ., DR PROMISE Proctor Consulting Unavailable STEWART, VINNIE Primary Care Unavailable PAY ., DR TOM Consulting Unavailable SUSHIL STOUT Consulting Unavailable AHDOOTSARAHEH Consulting Unavailable CAILIN, MASSIMO Consulting Unavailable MICKY PRUITT Consulting Unavailable SISTER, MURTAZA Consulting Unavailable SEPIDEH ., NIK Consulting Unavailable STEWART, VINNIE Primary Care Unavailable HOY ., DR SOTELO Consulting Unavailable HOY ., DR SOTELO Admitting Unavailable HOY ., DR SOTELO Attending Unavailable ZIEBER, DR BIANCA Sorto Consulting Unavailable SONIDO VAUGHN Consulting Unavailable AUSTIN, NOE Consulting Unavailable ALEKSOFÍA WHITE Consulting Unavailable ADRIEL VIRGEN Consulting Unavailable FAWWAD, BROWN H Attending Unavailable FAWWAD, BROWN H Admitting Unavailable STEWART, VINNIE Primary Care Unavailable FAWWAD, BROWN H Attending Unavailable FAWWAD, BROWN H Admitting Unavailable STEWART, VINNIE Primary Care Unavailable CAILIN, MASSIMO Consulting Unavailable CAILIN, MASSIMO Admitting Unavailable CAILINRONNIEA Attending Unavailable STEWART, VINNIE Primary Care Unavailable YEARTY KODI Consulting Unavailable YEARTY KODI Admitting Unavailable YEARTYSTEPHANIEKODI Attending Unavailable STEWART, VINNIE Primary Care Unavailable MISC, DR YEN Consulting Unavailable MISC, DR YEN Admitting Unavailable MISC, DR YEN Attending Unavailable STEWART, VINNIE Primary Care Unavailable JACSIMBA Consulting Unavailable JAC SIMBA Admitting Unavailable STEWART, VINNIE Primary Care Unavailable JAC, SIMBA Attending Unavailable JAC, SIMBA Admitting Unavailable JAC, SIMBA [facility]ending [facility] Unavailable JAC, SIMBA Consulting Unavailable FAWWAD, BROWN H Attending Unavailable FAWWAD, BROWN H Admitting Unavailable [facility] Care Unavailable FAWWAD, BROWN H Admitting Unavailable FAWWAD, BROWN H Attending [facility] FAWWAD, BROWN H Attending Unavailable FAWWAD, BROWN H Admitting Unavailable [facility] Care Unavailable YEARTY, KODI Admitting Unavailable YEARTY, KODI Attending [facility] Care Unavailable YEARTY, KODI Consulting Unavailable CAILIN, MASSIMO Admitting Unavailable JADE SIMEONINDA Attending Unavailable [facility] Care Unavailable CAILIN, MASSIMO Consulting Unavailable CANDELARIA SEGAL Admitting Unavailable CANDELARIA SEGAL Attending Unavailable JORGE BUCKNER Consulting Un[facility] Unavailable CANDELARIA SEGAL Consulting Unavailable FAWWAD, BROWN H Attending Unavailable [facility] Unavailable FAWWAD, BROWN H Admitting Unavailable DR IMTIAZ DUVAL Consulting Unavailable FAWWAD, BROWN H Consulting Unavailable SOFÍA GASTON Consulting Unavailable MIRYAM MENDEZ Consulting Unavailable JOSE STRONG Consulting Unavailable ALLIE BERMUDEZ Consulting Unavailable FAWWAD, BROWN H Admitting Unavailable FAWWAD, BROWN H Attending Unavailable [facility] Unavailable FAWWAD, BROWN H Attending Unavailable FAWWAD, BROWN H Admitting [facility] Unavailable FAWWAD, BROWN H Admitting Unavailable FAWWAD, BROWN H Attending Unavailable [facility] Unavailable JORGE ARROYO Admitting Unavailable JORGE ARROYO Attending [facility] Unavailable JORGE ARROYO Admitting Unavailable JORGE ARROYO Attending Unavailable [facility] Care Unavailable JORGE ARROYO Admitting Unavailable JORGE ARROYO Attending Unavailable [facility] Care Unavailable JORGE ARROYO Admitting Unavailable JORGE ARROYO Attending Un[facility] Care Unavailable JORGE ARROYO Admitting Unavailable JORGE ARROYO Attending [facility] Care Unavailable ZIEBER, DR BIANCA Sorto Consulting Unavailable PAY ., DR TOM Admitting Unavailable PAY ., DR TOM Attending Unavailable [facility] Primary Care Unavailable PAY ., DR TOM Consulting Unavailable FAWWAD, BROWN H Admitting Unavailable FAWWAD, BROWN H Attending [facility] Primary Care Unavailable WEST, DR BALBIR Thorpe Consulting Unavailable ZIEBROSY, DR BIANCA Sorto Consulting Unavailable NADERER, DR LOWELL Jones Consulting Unavailable EDSON PARKS Consulting Unavailable BRIANNA ., ANAMIKA Consulting Unavailable FAWWAD, BROWN H Consulting Unavailable HOY ., DR SOTELO Consulting Unavailable HOY ., DR SOTELO Admitting Unavailable HOY ., DR SOTELO Attending Unavailable [facility] Primary Care Unavailable ZIEBER, DR BIANCA Sorto Consulting Unavailable SONIDO VAUGHN Consulting Unavailable WILEY ., MAYE TERAN Consulting Unavailable SISTER, MURTAZA Consulting Unavailable STELLA, JULIA Consulting Unavailable BLANCA SANTOS Consulting Unavailable SUSHIL STOUT Admitting Unavailable SUSHIL STOUT Attending Unavailable SUSHIL STOUT Consulting Unavailable [facility] Primary Care Unavailable FAWWAD, BROWN H Admitting Unavailable FAWWAD, BROWN H Attending Unavailable [facility] Primary Care Unavailable JORGE ARROYO Admitting Unavailable JORGE ARROYO Attending Unavailable [facility] Primary Care Unavailable MapNicolette peoples Unavailable PROVIDER, UNKNOWN Attending Unavailable PROVIDER, UNKNOWN Admitting Unavailable MASSIMO SIMEON Attending Unavailable SUSHIL STOUT Attending Unavailable FATIMAH NARVAEZ Referring Unavailable JORJE SANCHEZ Attending Unavailable CHAR MARIE Attending Unavailable BRYCE WATSON Attending Unavailable FATIMAH NARVAEZ Referring Unavailable DAHIANA BELCHER Attending Unavailable SUSHIL STOUT Attending Unavailable MASSIMO SIMEON Attending Unavailable ALYSHA, VENKATESH Admitting Unavailable ALI, TRACEY Attending Unavailable ANZAR, ELODIA Referring Unavailable ALYSHA, VENKATESH Admitting Unavailable ALI, TRACEY Attending Unavailable MASSIMO SIMEON Attending Unavailable BRYCE WATSON Attending Unavailable BRYCE WATSON Attending Unavailable RAMADAN, ABED Referring Unavailable RAMADAN, ABED Referring Unavailable RAMADAN, ABED Referring Unavailable SFAELOS, HO Referring Unavailable GOKUL, NASHEED Referring Unavailable FATIMAH NARVAEZ Referring Unavailable KODI MYERS Attending Unavailable SUSHIL STOUT Attending Unavailable Nicolette Manzano Admitting Unavailable Nicolette Manzano Attending Unavailable Vinnie Stewart Primary Care Unavailable Adamowicz II, Ethan Allen Admitting Unavaila ble Adamowicz II, Ethan J Attending Unavaila ble JacSimba alcantar Referring Unavailable Vinnie Stewart Primary Care Unavailable Vinnie Stewart Primary Care Unavailable Yakov To Admitting Unavailable Yakov To Attending Unavailable Yakov To Admitting Unavailable Yakov To Attending Unavailable Vinnie Stewart Primary Care Unavailable Unavailable Unavailable Unavailable Allergies Allergy Classification Reported Allergen(s) Allergy Type Date of Onset Reaction(s) Facility (10 sources) Angiotensin Converting Enzyme (Gabriela) Inhibitors; 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: [GABRIELA Inhibitors] Propensity to adverse reactions 2 Cough [facility] Repository (20 sources) Angiotensin Converting Enzyme (Gabriela) Inhibitors Propensity to adverse reactions cough [facility] Other Medications Current Medications Medication Drug Class(es) Dates Sig (Normalized) Sig (Original) acetaminophen 325 mg / HYDROcodone bitartrate 5 mg oral tablet (20 sources) Opioid Agonist Start: 10-19-2023 take 1 tablet by mouth every eight hours HYDROcodone-Aceta minophen 5-325 MG 1 tablet as needed Orally every 8 hrs for 30 days Oct, Active Start: 09-20-2023 take 1 tablet by cedrick th every eight hours HYDROcodone-Acetaminophen 5-325 MG 1 tab let as needed Orally every 8 hrs for 30 days Sep, Active Start: 08-23-2023 take 1 tablet by cedrick th every eight hours Start: 07-20-2023 take 1 tablet by cedrick th every eight hours HYDROcodone-Acetaminophen 5-325 MG 1 tab let as needed Orally every 8 hrs for 30 days Jul, Active Start: 06-18-2023 take 1 tablet by cedrick th every eight hours HYDROcodone-Acetaminophen 5-325 MG 1 tab let as needed Orally every 8 hrs for 30 days May, Active Start: 05-18-2023 take 1 tablet by cedrick th every eight hours HYDROcodone-Acetaminophen 5-325 MG 1 tab let as needed Orally every 8 hrs for 30 days Apr, Active Start: 03-19-2023 take 1 tablet by cedrick th every eight hours HYDROcodone-Acetaminophen 5-325 MG 1 tab let as needed Orally every 8 hrs for 30 days March, Active Start: 02-09-2023 take 1 tablet by cedrick th every eight hours HYDROcodone-Acetaminophen 5-325 MG 1 tab let as needed Orally every 8 hrs for 30 days Jan, Active Start: 01-16-2023 take 1 tablet by cedrick th every eight hours HYDROcodone-Acetaminophen 5-325 MG 1 tab let as needed Orally every 8 hrs Dec, Active Start: 12-14-2022 take 1 tablet by cedrick th every eight hours HYDROcodone-Acetaminophen 5-325 MG 1 tab let as needed Orally every 8 hrs for 30 day(s) Nov, Active Start: 10-09-2022 take 1 tablet by cedrick th every eight hours HYDROcodone-Acetaminophen 5-325 MG 1 tab let as needed Orally every 8 hrs for 30 day(s) Sep, Active Start: 09-08-2022 take 1 tablet by cedrick th every eight hours HYDROcodone-Acetaminophen 5-325 MG 1 tab let as needed Orally every 8 hrs for 30 day(s) Aug, Active Start: 08-09-2022 take 1 tablet by cedrick th every eight hours as needed HYDROcodone-Acetaminophen 5-325 MG TAKE 1 TABLET BY MOUTH EVERY 8 HOURS NEEDED for 30 Jul, Active Start: 07-10-2022 take 1 tablet by cedrick th every eight hours HYDROcodone-Acetaminophen 5-325 MG 1 tab let as needed Orally every 8 hrs for 30 day(s) Jun, Active Start: 05-08-2022 take 1 tablet by cedrick th every eight hours HYDROcodone-Acetaminophen 5-325 MG 1 tab let as needed Orally every 8 hrs for 30 day(s) May, Active Start: 04-03-2022 take 1 tablet by cedrick th three times daily Hydrocodone-Acetaminophen Active 1 TAB P O Three times daily April 10, 2022 12:00am Start: 01-27-2022 take 1 tablet by cedrick th every eight hours HYDROcodone-Acetaminophen 5-325 MG 1 tab let as needed Orally tid for 30 day(s) Feb, Active Start: 12-20-2021 take 1 tablet by cedrick th every eight hours as needed HYDROcodone-Acetaminophen 5-325 MG TAKE 1 TABLET BY MOUTH EVERY 8 HOURS NEEDED for 30 Dec, Active Start: 11-04-2021 take 1 tablet by cedrick th every eight hours HYDROcodone-Acetaminophen 5-325 MG 1 tab let as needed Orally every 8 hrs for 30 day(s) Oct, Active Start: 09-26-2021 take 1 tablet by cedrick th every eight hours HYDROcodone-Acetaminophen 5-325 MG 1 tab let as needed Orally every 8 hrs for 30 day(s) Sep, Active albuterol 0.83 mg/ml inhalation solution (20 sources) beta2-Adrenergic Agonist Start: 04-10-2022 take 1 puff(s) by inhalation every four hours Albuterol Sulfate Active 2 PUFF INHALATION Q4H April 10, 2022 12:00am Start: 07-31-2019 End: 02-09-2020 take 1 puff(s) by inhalation every six hours Albuterol Sulfate (Ventolin Hfa) 90 mcg/actuation Hfa Aerosol Inhaler Discontinued 1 PUFF INHALATION Q6H July 31, 2019 7:15am February 09, 2020 11:49am Start: 07-31-2019 take 1 puff(s) by in halation every six hours Albuterol Sulfate Active 1 PUFF Inhalation Q6H July 31, 2019 8:15am Start: 07-31-2019 End: 02-09-2020 take 1 puff(s) by inhalation every six hours Albuterol Sulfate (Ventolin Hfa) 90 mcg/actuation Hfa Aerosol Inhaler Discontinued 1 PUFF INHALATION Q6H July 31, 2019 12:00am February 09, 2020 12:49pm Start: 02-24-2019 End: 07-31-2019 take 1 puff(s) by inhalation every four to six hours Albuterol Sulfate Discontinued 1 PUFF INHALATION EVERY 4-6 HOURS February 24, 2019 5:40am July 31, 2019 7:17am Start: 02-24-2019 End: 07-31-2019 take 1 puff(s) by inhalation every four to six hours Albuterol Sulfate Discontinued 1 PUFF INHALATION EVERY 4-6 HOURS February 24, 2019 12:00am July 31, 2019 8:17am Start: 02-24-2019 End: 07-31-2019 take 1 puff(s) by inhalation every four to six hours Albuterol Sulfate Discontinued 1 PUFF INHALATION EVERY 4-6 HOURS February 23, 2019 11:00pm July 31, 2019 7:17am Start: 08-05-2012 Start: 08-05-2012 take 2 puff(s) by in halation every four hours as needed take 2 puff(s) by in halation every four hours as needed take 2 puff(s) by in halation every four hours as needed amitriptyline hydrochloride 25 mg oral tablet (20 sources) Tricyclic Antidepressant Start: 04-10-2022 take 1 tablet b y mouth once daily as needed Start: 07-31-2019 End: 02-09-2020 take 25 mg by mouth at bedtime Amitriptyline Discontin ued 25 MG PO Bedtime July 31, 2019 12:00am February 09, 2020 12:49pm apixaban 5 mg oral tablet (5 sources) Factor Xa Inhibitor Start: 02-24-2019 take 5 mg by mouth twice daily Apixaban Active 5 MG Oral Twice daily February 24, 2019 6:40am Start: 02-24-2019 End: 04-10-2022 take 5 mg by mouth once daily Apixaban Discontinued 5 MG PO Daily February 24, 2019 12:00am April 10, 2022 3:04pm Aspir-81 81 MG (20 sources) take 1 tablet by mouth once annette y take 1 tablet by mouth once annette y Aspir-81 81 MG 1 tablet Orally Once a day for 90 day(s) Not-Taking take 1 tablet by mouth once annette y Aspir-81 81 MG 1 tablet Orally Once a day for 90 day(s) Active aspirin 81 mg delayed release oral tablet (8 sources) Platelet Aggregation Inhibitor, Nonsteroidal Anti-inflammatory Drug Start: 02-24-2019 End: 04-10-2022 take 81 mg by mouth once daily Aspirin Active 81 MG PO Daily April 10, 2022 12:00am atorvastatin 80 mg oral tablet (20 sources) HMG-CoA Reductase Inhibitor Start: 02-24-2019 End: 04-10-2022 take 80 mg by mouth once daily Atorvastatin Active 80 MG PO Daily April 10, 2022 12:00am 120 actuat budesonide 0.16 mg/actuat / formoterol fumarate 0.0045 mg/actuat metered dose inhaler (20 sources) Corticosteroid, beta2-Adrenergic Agonist Start: 04-10-2022 take 1 puff(s) by inhalation twice daily Budesonide-Formo terol (Symbicort) 160-4.5 mcg/actuation Hfa Aerosol Inhaler Active 2 PUFF INHALATION Twice daily April 10, 2022 12:00am Start: 07-31-2019 End: 02-09-2020 take 1 puff(s) by inhalation twice daily Budesonide-Formoterol (Symbicort) 160-4.5 mcg/actuation Hfa Aerosol Inhaler Discontinued 2 PUFF INHALATION Twice daily July 31, 2019 12:00am February 09, 2020 12:49pm Start: 02-24-2019 End: 07-31-2019 take 1 puff(s) by inhalation twice daily Budesonide-Formoterol Discontinued 2 PUFF INHALATION Twice daily February 24, 2019 12:00am July 31, 2019 8:20am take 2 puff(s) by in halation twice daily take 2 puff(s) by in halation twice daily bumetanide 1 mg oral tablet (20 sources) Loop Diuretic Start: 04-10-2022 take 2 mg by mouth twice daily Bumetanide Active 2 MG PO Twice daily April 10, 2022 12:00am Start: 04-10-2022 take 1 mg by mouth twice daily Bumetanide Active 1 MG PO Twice daily April 09, 2022 11:00pm carvedilol 25 mg oral tablet (20 sources) alpha-Adrenergic Devaughn, beta-Adrenergic Devaughn Start: 02-24-2019 End: 04-10-2022 take 25 mg by mouth twice daily Carvedilol Active 25 MG PO Twice daily April 10, 2022 12:00am cefdinir 300 mg oral capsule (20 sources) Cephalosporin Antibacterial Start: 07-30-2023 take 1 capsule by mouth every twelve hours cephalexin 500 mg oral capsule (20 sources) Cephalosporin Antibacterial Start: 03-21-2023 take 1 capsule by mouth every eight hours Cephalexin 500 MG 1 capsule Orally 3 times a day for 7 days March, Active Start: 10-26-2022 take 1 tablet by cedrick th every eight hours Cephalexin 500 MG 1 tablet Orally every 8 hours for 7 days Aug, Active Start: 03-02-2022 take 1 capsule by mo [facility] every eight hours Cephalexin 500 MG 1 capsule Orally tid for 7 days Feb, Active Start: 01-26-2022 take 1 capsule by mo [facility] every twelve hours Cephalexin 500 MG 1 capsule Orally bid for 10 day(s) Jan, Active Start: 01-10-2022 take 1 capsule by mo [facility] every eight hours Cephalexin 500 MG 1 capsule Orally tid for 7 days Dec, Active Start: 12-09-2021 take 1 capsule by mo [facility] every twelve hours Cephalexin 500 MG 1 capsule Orally bid for 10 day(s) Nov, Active Start: 07-31-2019 End: 12-04-2019 take 500 mg by mouth three times daily Cephalexin Discontinued 500 MG PO Three times daily July 31, 2019 12:00am December 04, 2019 11:49am cholecalciferol 0.05 mg oral tablet (7 sources) Vitamin D Start: 04-10-2022 take 1 tablet by mouth once daily Cholecalciferol (Vitamin D3) (Vitamin D3) 50 mcg (2,000 unit) Tablet Active 50 MCG PO Daily April 10, 2022 12:00am Start: 07-31-2019 End: 12-04-2019 take 1 capsule by mouth once daily Cholecalciferol (Vitamin D3) (Vitamin D3) 2,000 unit Capsule Discontinued 2000 UNIT PO Daily July 31, 2019 12:00am December 04, 2019 1:04pm ciprofloxacin 500 mg oral tablet (7 sources) Quinolone Antimicrobial take 1 tablet by mouth every twelve hours Ciprofloxacin HCl 500 MG 1 tablet Orally every 12 hrs Active clindamycin 300 mg oral capsule (7 sources) Lincosamide Antibacterial take 1 capsule by mouth every six hours Clindamycin HCl 300 MG 1 capsule Orally EVERY 6 HRS Active dapagliflozin 10 mg oral tablet (20 sources) Sodium-Glucose Cotransporter 2 Inhibitor Start: 02-14-20 take 1 tablet by mouth once daily Dapagliflozin (Farxiga) 10 mg tablet Active 10 MG PO Daily February 13, 2023 12:00am Diabetic Shoes (20 sources) Start: 11-22-19 Diabetic Shoes as directed Nov, Active digoxin 0.125 mg oral tablet (20 sources) Cardiac Glycoside Start: 04-10-20 take 125 ug by mouth once daily Digoxin Active 125 MCG PO Daily April 10, 2022 12:00am Start: 02-17-2020 End: 04-10-2022 Digoxin Discontinued 0.125 M G PO Q48H 0 February 17, 2020 12:15pm April 10, 2022 3:04pm Start: 02-24-2019 End: 02-17-2020 take 0.125 mg by mouth once daily Digoxin Discontinued 0.125 MG PO Daily February 24, 2019 12:00am February 17, 2020 12:19pm doxycycline hyclate 100 mg oral tablet (20 sources) Tetracycline-class Drug Start: 09-27-2022 take 1 tablet by mouth every twelve hours Doxycycline Hyclate 100 MG 1 tablet Orally Twice a day for 10 days Dec, Active Start: 12-21-2019 End: 02-09-2020 take 100 mg by mouth twice daily Doxycycline Hyclate Discontinued 100 MG PO Twice daily December 21, 2019 1:00am February 09, 2020 12:49pm Start: 12-04-2019 End: 12-04-2019 take 100 mg by mouth twice daily Doxycycline Hyclate Discontinued 100 MG PO Twice daily 07 09December 04, 2019 1:00am December 04, 2019 1:04pm Doxycycline Not- Taking Doxycycline Acti ve 0.5 ML dulaglutide 9 MG/ML Auto-Injector [Trulicity] (20 sources) GLP-1 Receptor Agonist Start: 10-11-2021 Trulicity 4.5 MG/0.5 ML as directed Subcutaneous patient assistance Sep, Active Start: 02-10-2020 End: 04-10-2022 Dulaglutide (Trulicity) 1.5 mg/0.5 mL Pen Injector Discontinued 1.5 MG SUBCUT every week February 10, 2020 12:00am April 10, 2022 3:04pm Start: 07-31-2019 End: 12-04-2019 Dulaglutide (Trulicity) 0.75 mg/0.5 mL Pen Injector Discontinued 1.5 MG SUBCUT every week July 31, 2019 12:00am December 04, 2019 1:04pm Start: 02-24-2019 End: 07-31-2019 Dulaglutide (Trulicity) 1.5 mg/0.5 mL Pen Injector Discontinued 1.5 MG SUBCUT every week February 24, 2019 12:00am July 31, 2019 8:19am Trulicity 4.5 MG /0.5ML as directed Subcutaneous PAP- Active Trulicity 4.5 MG /0.5ML as directed Subcutaneous patient assistance Active inject 4.5 mg by sub cutaneous injection every week Trulicity 3 MG/0.5ML as directed Subcutaneous weekly for 90 days And increase to 4.5mg sq weekly Patient assistance Active Trulicity 3 MG/0 .5ML as directed Subcutaneous And increase to 3mg sq weekly Patient assistance initated by Dr. Stewart Active Dulaglutide (Trulicity) 4.5 mg/0.5 mL Pen Injector (3 sources) Start: 04-10-2022 Dulaglutide (T rulicity) 4.5 mg/0.5 mL Pen Injector Active 0 .ROUTE .COMPLEX April 10, 2022 12:00am take as directed Start: 04-10-2022 Dulaglutide (T rulicity) 4.5 mg/0.5 mL Pen Injector Active 0 .ROUTE .COMPLEX April 09, 2022 11:00pm take as directed ferrous sulfate 325 mg oral tablet (20 sources) Start: 06-06-2022 take 325 mg by mouth once daily Ferrous Sulfate Active 325 MG PO Daily June 06, 2022 12:07pm Start: 06-06-2022 End: 06-06-2022 Ferrous Sulfate Discontinued MG TABLET June 06, 2022 12:00am June 06, 2022 12:07pm FreeStyle Lucas 14 Day Senso r - (20 sources) Start: 04-27-2022 FreeStyle Libr e 14 Day Sensor - as directed SQ change every 14 days for 28 days DX E11.65 Apr, Active FreeStyle Lucas 2 [place] - (20 sources) FreeStyle Lucas 2 [place] - USE READER TO TEST BLOOD SUGAR DIRECTED DAILY for 365 Active FreeStyle Lucas 2 [place] - USE DIRECTED DAILY for 365 Active FreeStyle Lucas 2 [place] Sys tm - (20 sources) FreeStyle Lucas 2 [place] Systm - as directed SQ Daily for 365 days Active FreeStyle Lucas 2 Sensor - (20 sources) Start: 07-18-2022 FreeStyle Libr e 2 Sensor - check blood sugar SQ 4 x daily as directed for 84 days Dx E11.65 Jun, Active FreeStyle Lucas 2 Sensor Sys tm - (20 sources) FreeStyle Lucas 2 Sensor Systm - as directed SQ every 14 days for 84 days Dx E11.65 Active FreeStyle Lucas 2 Sensor Systm - as directed SQ QID and prn for 84 days DX E11.65 Active FreeStyle Lucas 2 Sensor Systm - as directed SQ QID and prn for 84 days Active furosemide 20 mg oral tablet (20 sources) Loop Diuretic Start: 02-13-2023 take 60 mg by mouth twice daily Furosemide Active 60 MG PO Twice daily February 13, 2023 12:00am Start: 02-09-2020 End: 04-10-2022 take 2 tablets by mouth once daily Furosemide (Lasix) 40 mg Tablet Discontinued 80 MG PO Daily February 09, 2020 12:00am April 10, 2022 3:04pm Start: 02-24-2019 End: 12-04-2019 take 2 tablets by mouth once daily Furosemide (Lasix) 40 mg Tablet Discontinued 80 MG PO Daily February 24, 2019 12:00am December 04, 2019 1:05pm take 1 tablet by cedrick th every twelve hours take 1 tablet by cedrick th every twelve hours take 1 tablet by cedrick th once daily in the morning Furosemide 80 MG 1 tablet Orally Once a day IN THE AM Active take 3 tablets by mo uth once in the evening Furosemide 20 MG 3 tablet Orally ONCE IN THE PM Active gabapentin 400 mg oral capsule (20 sources) Anti-epileptic Agent Start: 07-09-2020 take 400 mg by mouth twice daily Gabapentin Active 400 MG PO Twice daily April 10, 2022 12:00am Start: 03-12-2020 End: 04-10-2022 take 600 mg by mouth once daily at bedtime Gabapentin Discontinued 600 MG PO Twice daily March 12, 2020 8:46am April 10, 2022 3:04pm 600mg po in AM 300MG PO AT LUNCH 600MG PO QHS Start: 02-24-2019 take 300 mg by mouth three times daily Gabapentin Active 300 MG Oral Three times daily February 24, 2019 6:40am Start: 02-24-2019 End: 03-12-2020 take 600 mg by mouth once daily at bedtime Gabapentin Discontinued 300 MG PO Twice daily 0 February 17, 2020 12:15pm March 12, 2020 8:46am 600mg po in AM 300MG PO AT LUNCH 600MG PO QHS Handicap placards as directe d (20 sources) Start: 03-10-2021 Handicap placa rds as directed as directed as directed as directed Feb, Active Hospital bed as directed (20 sources) Start: 06-18-2023 Start: 06-18-2023 Hospital bed a s directed as directed May, Active Humalog KwikPen 200 200 Unit s/ML (20 sources) Humalog KwikPen 200 200 Units/ML As directed Subcutane TID Small meals is 5 units , medium meal is 7 units and large meal is 8 units Active Humalog KwikPen 200 200 Units/ML As directed Subcutane TID Large Meal 30 units, Extra large meal 33 units, ISS if not eating 1:20 Active Humalog KwikPen 200 200 Units/ML As directed Subcutane TID Small meals is 34 units, medium meal is 36 units and large meal is 38, ISS if not eating 1:20 Active Humalog KwikPen 200 200 Units/ML As directed Subcutane TID Small meals is 34 units, medium meal is 36 units and large meal is 38 Active Humalog KwikPen 200 200 Units/ML As directed Subcutane TID PAP-Small meals is 34 units, medium meal is 36 units and large meal is 30 Active Humalog KwikPen 200 200 Units/ML As directed Subcutane TID Small meals is 34 units, medium meal is 36 units and large meal is 30 Active Humalog KwikPen 200 200 Units/ML 32 vs 37 u based on meal size Subcutane TID 32 vs 37 units based on meal size Active Humalog KwikPen 200 200 Units/ML 32 brk/ ln 32, dn 32 Subcutane As Directed decrease by 5u/meal if eating less, increase by 5 u if bigger meal-- expect up to 100u / day Active Humalog KwikPen 200 200 Units/ML 32 brk/ ln 32, dn 32 Subcutane As Directed decrease by 5u/meal if eating less Active hydrALAZINE hydrochloride 50 mg oral tablet (20 sources) Arteriolar Vasodilator Start: 02-24-2019 End: 04-10-2022 take 50 mg by mouth three times daily Hydralazine Active 50 MG PO Three times daily April 10, 2022 12:00am 3 ml insulin degludec 200 unt/ml pen injector (13 sources) Insulin Analog Start: 09-18-2023 Tresiba FlexTo uch 200 UNIT/ML 36 u Subcutaneous daily for 90 days transition from [facility] Aug, Active 3 ml insulin glargine 100 unt/ml pen injector (20 sources) Insulin Analog Start: 04-10-2022 Insulin Glargi ne (Basaglar Kwikpen U-100 Insulin) 100 unit/mL (3 mL) Insulin Pen Active 63 UNIT SUBCUT Twice daily April 10, 2022 12:00am Start: 02-17-2020 End: 04-10-2022 Insulin Glargine (Basaglar Kwikpen U-100 Insulin) 100 unit/mL (3 mL) Insulin Pen Discontinued 35 UNIT SUBCUT Twice daily 0 February 17, 2020 12:18pm April 10, 2022 3:04pm Start: 07-31-2019 inject 65 [IU] by ross bcutaneous injection once daily Insulin Glargine Active 65 UNIT Subcutaneous Daily July 31, 2019 8:15am Start: 07-31-2019 End: 02-17-2020 Insulin Glargine (Basaglar Kwikpen U-100 Insulin) 100 unit/mL (3 mL) Insulin Pen Discontinued 65 UNIT SUBCUT Twice daily July 31, 2019 12:00am February 17, 2020 12:19pm inject 54 [IU] by ross bcutaneous injection once daily in the morning, then inject 52 [IU] by subcutaneous injection twice daily in the evening, then inject 130 mg by subcutaneous injection every twelve hours inject 64 [IU] by ross bcutaneous injection once daily in the morning, then inject 60 [IU] by subcutaneous injection twice daily in the evening, then inject 130 mg by subcutaneous injection every twelve hours Basaglar KwikPen 100 UNIT/ML 64 u am and 60 u pm SQ bid for 90 days Expect up to 140 u/ day. Patient may titrate by 10% increase for 3/7 days BG > 130 mg/dl at 12 hrs post dose Active Basaglar KwikPen 100 UNIT/ML 58 units SQ bid Active 3 ml insulin lispro 200 unt/ml pen injector (8 sources) Insulin Analog Start: 04-10-2022 Insulin Lispro (Humalog Kwikpen Insulin) 200 unit/mL (3 mL) Insulin Pen Active 0 .ROUTE .COMPLEX April 10, 2022 12:00am small meals-34 units, medium meal--36 units, large meal--30 units TID Start: 07-31-2019 End: 04-10-2022 inject 30 [IU] by subcutaneous injection before breakfast, then inject 30 [IU] by subcutaneous injection before lunch, then inject 40 [IU] by subcutaneous injection before dinner Insulin Lispro (Humalog Kwikpen Insulin) 200 unit/mL (3 mL) Insulin Pen Discontinued 0 .ROUTE .COMPLEX July 31, 2019 12:00am April 10, 2022 3:04pm 30 unit subcutaneously before breakfast, 30 units before lunch, 40 units before dinner Insulin, Aspart, Human (9 sources) Insulin Analog Start: 12-04-2019 Insulin Aspart U-100 Active 1 sliding scale dose SUBCUT Use as Directed December 04, 2019 12:02pm Start: 12-04-2019 Insulin Aspart U-100 Active 1 sliding scale dose Subcutaneous Use as Directed December 04, 2019 12:02pm Start: 12-04-2019 End: 04-10-2022 Insulin Aspart U-100 Discont inued 1 sliding scale dose SUBCUT Use as Directed December 04, 2019 1:00am April 10, 2022 3:04pm Start: 12-04-2019 End: 04-10-2022 Insulin Aspart U-100 Discont inued 1 sliding scale dose SUBCUT Use as Directed December 04, 2019 12:00am April 10, 2022 2:04pm Start: 02-24-2019 End: 07-31-2019 Insulin Aspart U-100 (Novolo g U-100 Insulin Aspart) 100 unit/mL Solution Discontinued 0 .ROUTE .COMPLEX February 24, 2019 12:00am July 31, 2019 8:17am see label instructions isosorbide dinitrate 20 mg oral tablet (20 sources) Nitrate Vasodilator Start: 04-10-2022 take 20 mg by mouth twice daily Isosorbide Dinitrate Active 20 MG PO Twice daily April 10, 2022 12:00am levothyroxine sodium 0.05 mg oral tablet (20 sources) l-Thyroxine take 1 tablet by mouth once daily in the morning take 1 tablet by mouth once annette y in the morning metOLazone 2.5 mg oral tablet (20 sources) Thiazide-like Diuretic Start: 02-13-2023 take 2.5 mg by mouth every week Metolazone Active 2.5 MG PO every week February 13, 2023 12:00am take 1 tablet by cedrick every twenty-four hours take 1 tablet by mouth every wee k metOLazone 5 MG 1 tablet Orally once a week Active nitroglycerin 0.4 mg sublingual tablet (20 sources) Nitrate Vasodilator Start: 04-10-2022 Nitroglyce rin (Nitrostat) 0.4 mg Tablet, Sublingual Active 0.4 MG SUBLINGUAL As Directed April 10, 2022 12:00am Start: 02-24-2019 End: 02-09-2020 Nitroglycerin Discontinued 0 .4 MG SUBLINGUAL every 5 to 15 minutes February 24, 2019 12:00am February 09, 2020 12:49pm Oxygen Concentrator (20 sources) Start: 12-19-2022 Oxygen Concent rator Nov, Active Start: 10-10-2021 Oxygen Concent rator Sep, Active potassium chloride 10 meq extended release oral tablet (20 sources) Start: 02-14-2023 Potassium Chlo ride (Klor-Con 10) 10 mEq Tablet Extended Release Active 20 MEQ PO Daily February 14, 2023 6:16pm Start: 04-10-2022 End: 02-14-2023 Potassium Chloride (Klor-Con 10) 10 mEq Tablet Extended Release Discontinued 10 MEQ PO Daily April 10, 2022 12:00am February 14, 2023 6:20pm Start: 02-24-2019 take 20 mEq by mouth once annette y Potassium Chloride Active 20 MEQ Oral Daily February 24, 2019 6:40am Start: 02-24-2019 End: 03-12-2020 take 10 mEq by mouth once daily Potassium Chloride Dis continued 10 MEQ PO Daily February 24, 2019 12:00am March 12, 2020 8:46am take 2 tablets by mo [facility] every twenty-four hours predniSONE 50 mg oral tablet (20 sources) Start: 12-22-2022 take 1 tablet by cedrick every twenty-four hours predniSONE 50 MG 1 tablet Orally Once a day for 5 day(s) Dec, Active Start: 05-30-2022 take 2 tablets by mo [facility] every twenty-four hours predniSONE 20 MG 2 tablets Orally Once a day for 5 day(s) May, Active spironolactone 25 mg oral tablet (20 sources) Aldosterone Antagonist Start: 02-24-2019 take 60 mg by mouth once daily Spironolactone Active 60 MG Oral Daily February 24, 2019 6:40am Start: 02-24-2019 End: 04-10-2022 take 25 mg by mouth once daily Spironolactone Active 25 MG PO Daily April 10, 2022 12:00am vitamin b12 1 mg oral tablet (11 sources) Vitamin B12 Start: 06-06-2022 End: 06-06-2022 take 1 tablet by mouth once daily Cyanocobalamin (Vitamin B-12) (Vitamin B-12) 1,000 mcg Tablet Active 1000 MCG PO Daily June 06, 2022 12:07pm take 1 tablet by mouth every twe nty-four hours Vitamin B12 1000 MCG (20 sources) take 1 tablet by mouth once annette y take 1 tablet by mouth once annette y Vitamin B12 1000 MCG 1 tablet Orally Once a day for 90 days Active take 1 tablet by mouth once annette y Vitamin B12 1000 MCG 1 tablet Orally Once a day Active Vitamin D 2000 UNIT (20 sources) take 1 tablet by mouth once annette y take 1 tablet by mouth once annette y Vitamin D 2000 UNIT 1 tablet Orally Once a day for 90 day(s) Not-Taking take 1 tablet by mouth once annette y Vitamin D 2000 UNIT 1 tablet Orally Once a day for 90 day(s) Active Jose - (13 sources) Start: 09-17-2023 Jose bender Aug, Active warfarin sodium 5 mg oral tablet (20 sources) Vitamin K Antagonist Start: 04-10-2022 Warfarin Active 5 MG PO As Directed April 10, 2022 12:00am Completed/Discontinued Medications Medication Drug Class(es) Dates Sig (Normalized) Sig (Original) acetaminophen 300 mg / codeine phosphate 30 mg oral tablet (8 sources) Opioid Agonist Start: 02-09-2020 End: 04-10-2022 take 2 tablets by mouth twice daily Acetaminophen-Codei ne (Tylenol-Codeine #3) 300-30 mg Tablet Discontinued 2 TAB PO Twice daily February 09, 2020 12:00am May 23rd, 2022 3:04pm Start: 02-24-2019 End: 12-04-2019 take 1 tablet by mouth every four hours Acetaminophen-Codeine Discontinued 1 TAB PO Q4H February 24, 2019 12:00am December 04, 2019 1:02pm albuterol 0.833 mg/ml / ipratropium bromide 0.167 mg/ml inhalation solution (9 sources) Anticholinergic, beta2-Adrenergic Agonist Start: 02-24-2019 End: 07-31-2019 Ipratropium-Albuterol Discontinued 3 ML INHALATION every 6 to 8 hours February 24, 2019 12:00am July 31, 2019 8:19am Start: 02-24-2019 End: 02-09-2020 take 1 mL by inhalation every eight hours Ipratropium-Albuterol Discontinued 3 ML INHALATION Q8H February 24, 2019 12:00am February 09, 2020 12:49pm cefTRIAXone (20 sources) Cephalosporin Antibacterial Start: 10-02-2014 Rocephin 500 mg Sep, 1000 mg cefuroxime 500 mg oral tablet (10 sources) Cephalosporin Antibacterial take 1 tablet by mouth every twelve hours Cefuroxime Axetil 500 MG 1 tablet Orally every 12 hrs Not-Taking empagliflozin 10 mg oral tablet (20 sources) Sodium-Glucose Cotransporter 2 Inhibitor Start: 10-05-2021 End: 12-04-2022 take 1 tablet by mouth once daily Empagliflozin (Jardiance) 10 mg Tablet Discontinued 10 MG PO Daily April 10, 2022 12:00am December 04, 2022 2:05pm Start: 02-24-2019 End: 07-31-2019 take 1 tablet by mouth once daily Empagliflozin (Jardiance) 25 mg Tablet Discontinued 25 MG PO Daily February 24, 2019 12:00am July 31, 2019 8:19am ipratropium bromide 0.2 mg/ml inhalation solution (20 sources) Anticholinergic Start: 04-10-2022 End: 12-04-2022 Ipratropium [place] Discontinued SOLUTION April 10, 2022 12:00am December 04, 2022 2:05pm Ipratropium Brom jj 0.02 % USE 1 VIAL IN NEBULIZER 3 TIMES DAILY Not-Taking/PRN Ipratropium Brom jj 0.02 % USE 1 VIAL IN NEBULIZER 3 TIMES DAILY Not-Taking 24 hr isosorbide mononitrate 60 mg extended release oral tablet (5 sources) Nitrate Vasodilator Start: 02-24-2019 End: 04-10-2022 take 90 mg by mouth once daily Isosorbide Mononitrate Discontinued 90 MG PO Daily February 24, 2019 12:00am April 10, 2022 3:04pm Ketorolac (20 sources) Nonsteroidal Anti-inflammatory Drug, Cyclooxygenase Inhibitor Start: 07-26-2016 Toradol per 15 mg Jul, 60 mg levoFLOXacin 500 mg oral tablet (4 sources) Quinolone Antimicrobial Start: 02-17-2020 End: 03-12-2020 take 1 tablet by mouth once daily Levofloxacin (Levaquin) 500 mg tablet Discontinued 500 MG PO Daily 08 28February 17, 2020 12:00am March 12, 2020 8:45am losartan potassium 25 mg oral tablet (20 sources) Angiotensin 2 Receptor Devaughn Start: 04-10-2022 End: 12-04-2022 take 25 mg by mouth once daily Losartan Discontinued 25 MG PO Daily April 10, 2022 12:00am December 04, 2022 2:04pm Start: 02-24-2019 End: 02-17-2020 take 50 mg by mouth once daily Losartan Discontinued 5 0 MG PO Daily February 24, 2019 12:00am February 17, 2020 12:19pm Magnesium (4 sources) Start: 02-24-2019 End: 07-31-2019 take 400 mg by mouth once daily Magnesium Discontinued 400 MG PO Daily February 24, 2019 5:40am July 31, 2019 7:19am Start: 02-24-2019 End: 07-31-2019 take 400 mg by mouth once daily Magnesium Discontinued 400 MG PO Daily February 24, 2019 12:00am July 31, 2019 8:19am Start: 02-24-2019 End: 07-31-2019 take 400 mg by mouth once daily Magnesium Discontinued 400 MG PO Daily February 23, 2019 11:00pm July 31, 2019 7:19am meclizine hydrochloride 25 mg oral tablet (20 sources) Antiemetic Start: 03-02-2022 take 1 tablet by mouth every twelve hours Meclizine HCl 25 MG 1 tablet as needed Orally bid for 5 day(s) Feb, Not-Taking metFORMIN hydrochloride 500 mg oral tablet (5 sources) Biguanide Start: 02-24-2019 End: 03-12-2020 take 1000 mg by mouth twice daily Metformin Discontinued 1000 MG PO Twice daily February 24, 2019 12:00am March 12, 2020 8:45am pantoprazole 40 mg delayed release oral tablet (4 sources) Proton Pump Inhibitor Start: 02-24-2019 End: 12-04-2019 take 40 mg by mouth once daily Pantoprazole Discontinued 40 MG PO Daily February 24, 2019 12:00am December 04, 2019 1:07pm sennosides, shelter 8.6 mg oral tablet (4 sources) Start: 02-24-2019 End: 12-04-2019 take 8.6 mg by mouth once daily Sennosides Discontinued 8.6 MG PO Daily February 24, 2019 12:00am December 04, 2019 1:07pm silver sulfADIAZINE 10 mg/ml topical cream (20 sources) Sulfonamide Antibacterial Start: 09-28-2022 Silver sulfADIAZINE 1 % 1 application Externally Once a day for 10 days Sep, Not-Taking sulfamethoxazole 800 mg / trimethoprim 160 mg oral tablet (4 sources) Dihydrofolate Reductase Inhibitor Antibacterial, Sulfonamide Antimicrobial Start: 07-31-2019 End: 12-04-2019 take 1 tablet by mouth twice daily Sulfamethoxazole- Trimethoprim Discontinued 1 TAB PO Twice daily July 31, 2019 12:00am December 04, 2019 11:50am traZODone hydrochloride 50 mg oral tablet (4 sources) Serotonin Reuptake Inhibitor Start: 02-24-2019 End: 12-04-2019 take 50 mg by mouth once daily Trazodone Discontinued 50 MG PO Daily February 24, 2019 12:00am December 04, 2019 1:08pm Problems Active Problems Problem Classification Problem Date Documented Date Episodic/Chronic Abdominal pain (20 sources) Abdominal pain; 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: [Unspecified abdominal pain] Episodic Acquired foot deformities (1 source) Foot drop, left foot Episodic Administrative/social admission (7 sources) Dietary counseling and surveillance Onset: 1 Resolved: 2 Episodic Alcohol-related disorders (1 source) Alcohol abuse, in remission; 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: [ALCOHOL ABUSE IN REMISSION] Onset: 2 Chronic Aortic and peripheral arterial embolism or thrombosis (1 source) Embolism and thrombosis of other arteries; 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: [EMBOLISM THROMBOSIS OTHER ARTERIES] Onset: 3 Chronic Wright (3 sources) Burn of second degree of single left finger (nail) except thumb, initial encounter; 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: [Burn of unspecified degree of single left finger (nail) except thumb, initial encounter] Onset: 3 Episodic Cardiac dysrhythmias (20 sources) Paroxysmal atrial fibrillation; 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: [Ventricular tachycardia] Onset: 3 04-10-2022 Chronic Chronic kidney disease (20 sources) Chronic kidney disease stage 3; 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: [Chronic kidney disease, stage 3 (moderate)] Onset: 1 Resolved: 2 Chronic Chronic kidney disease (20 sources) Chronic kidney disease; 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: [Chronic kidney disease, stage III (moderate)] Onset: 2 Chronic obstructive pulmonary disease and bronchiectasis (20 sources) Chronic obstructive lung disease; 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: [Chronic obstructive pulmonary disease, unspecified] Onset: 2 Resolved: 2 Chronic Chronic ulcer of skin (20 sources) Chronic ulcer of foot; 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: [Non-pressure chronic ulcer of other part of left foot limited to breakdown of skin] Onset: 3 04-10-2022 Chronic Conduction disorders (20 sources) Automatic implantable cardiac defibrillator in situ; 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: [Presence of automatic (implantable) cardiac defibrillator] Onset: 2 Chronic Congestive heart failure; nonhypertensive (20 sources) Chronic systolic heart failure; 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: [Chronic systolic (congestive) heart failure] Onset: 2 Resolved: 2 Chronic Coronary atherosclerosis and other heart disease (20 sources) Angina pectoris; 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: [Atherosclerotic heart disease of [place] coronary artery with unspecified angina pectoris] Onset: 2 Chronic Coronary atherosclerosis and other heart disease (1 source) Presence of aortocoronary bypass graft; 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: [PRESENCE AORTOCORONARY BYPASS GRAFT] Onset: 3 Episodic Deficiency and other anemia (20 sources) Anemia of renal disease; 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: [Anemia in chronic kidney disease] Chronic Deficiency and other anemia (1 source) Anemia in chronic kidney disease; 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: [ANEMIA IN CHRONIC KIDNEY DISEASE] Onset: 2 Chronic Diabetes mellitus with complications (20 sources) Neuropathy due to diabetes mellitus; 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: [Type 2 diabetes mellitus with diabetic neuropathy, unspecified] Onset: 1 Resolved: 2 Chronic Diabetes mellitus without complication (20 sources) Diabetes mellitus; 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: [Type 2 diabetes mellitus] 04-10-2022 Chronic Diseases of white blood cells (20 sources) Leukocytosis; 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: [Elevated white blood cell count, unspecified] Onset: 3 Chronic Disorders of lipid metabolism (20 sources) Hyperlipidemia; 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: [Hyperlipidemia, unspecified] Onset: 1 Resolved: 2 Chronic Diverticulosis and diverticulitis (20 sources) Diverticular disease of colon; 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: [Diverticulosis of intestine, part unspecified, without perforation or abscess without bleeding] Chronic E Codes: Adverse effects of medical drugs (1 source) Adverse effect of glucocorticoids and synthetic analogues, initial encounter; 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: [ADVRS EFF GLUCOCORT SYN ANALOG INIT] Onset: 3 Episodic E Codes: Fall (1 source) Other fall on same level, initial encounter; 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: [OTHER FALL ON SAME LEVEL INITIAL] Onset: 3 Episodic E Codes: Natural/environment (1 source) Exposure to other specified factors, initial encounter; 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: [EXPOSURE OTHER SPEC FACTORS INITIAL] Onset: 3 Episodic Essential hypertension (20 sources) Hypertensive disorder; 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: [Essential (primary) hypertension] Onset: 1 Resolved: 2 Chronic Gangrene (3 sources) Gangrene of left foot; 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: [Gangrene, not elsewhere classified] 04-10-2022 Episodic Gangrene (1 source) Gangrene of left foot; 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: [Gangrene of left foot] Gastrointestinal hemorrhage (20 sources) Hematochezia; 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: [Melena] Episodic Hemorrhoids (20 sources) Hemorrhoids; 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: [Unspecified hemorrhoids] Episodic Hyperplasia of prostate (1 source) Benign prostatic hyperplasia without lower urinary tract symptoms; 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: [BENIGN PROSTATIC HYPRPLASIA WO LUTS] Onset: 3 Chronic Hypertension with complications and secondary hypertension (20 sources) Benign arteriolar nephrosclerosis; 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: [Hypertensive chronic kidney disease with stage 1 through stage 4 chronic kidney disease, or unspecified chronic kidney disease] Onset: 2 Chronic Nutritional deficiencies (20 sources) Vitamin D deficiency; 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: [Vitamin D deficiency, unspecified] Onset: 1 Resolved: 2 Chronic Nutritional deficiencies (7 sources) Deficiency of other specified B group vitamins Onset: 1 Resolved: 2 Episodic Open wounds of extremities (5 sources) Unspecified open wound of right great toe without damage to nail, initial encounter; 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: [Unspecified open wound, right lower leg, initial encounter] Onset: 2 Resolved: 2 Episodic Other aftercare (20 sources) Long-term current use of insulin; 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: [intermediate manager (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] Episodic Other aftercare (10 sources) USP (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; 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: [DIRECTOR OF OUTREACH CURRENT USE OF INSULIN] Onset: 1 Resolved: 2 Episodic Other aftercare (1 source) USP (current) use of aspirin; 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: [CORRECTION CURRENT USE OF ASPIRIN] Onset: 3 Episodic Other aftercare (1 source) Other shelter (current) drug therapy; 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: [OTH DIRECTOR OF OUTREACH CURRENT DRUG THERAPY] Onset: 3 Episodic Other aftercare (5 sources) Encounter for therapeutic drug level monitoring; 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: [ENC THERAPEUTC DRUG LEVL MONITORING] Onset: 3 Episodic Other aftercare (1 source) USP (current) use of anticoagulants; 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: [CORRECTION CURRNT USE ANTICOAGULANTS] Onset: 3 Episodic Other and ill-defined heart disease (3 sources) Intracardiac thrombosis, not elsewhere classified; 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: [INTRACARDIAC THROMBOSIS NEC] Onset: 2 Chronic Other and unspecified benign neoplasm (20 sources) Tubular adenoma ; 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: [Benign neoplasm, unspecified site] Episodic Other bone disease and musculoskeletal deformities (1 source) Acquired absence of left great toe; 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: [ACQUIRED ABSENCE OF LEFT GREAT TOE] Onset: 3 Chronic Other bone disease and musculoskeletal deformities (1 source) Acquired absence of left foot; 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: [ACQUIRED ABSENCE OF LEFT FOOT] Onset: 2 Chronic Other bone disease and musculoskeletal deformities (1 source) Acquired absence of other left toe(s); 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: [ACQUIRED ABSENCE OF OTHER LEFT TOES] Onset: 3 Episodic Other diseases of bladder and urethra (1 source) Bladder-neck obstruction; 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: [BLADDER-NECK OBSTRUCTION] Onset: 3 Chronic Other diseases of kidney and ureters (20 sources) Secondary hyperparathyroidism; 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: [Secondary hyperparathyroidism of renal origin] Chronic Other diseases of kidney and ureters (3 sources) Secondary hyperparathyroidism of renal origin; 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: [SEC HYPERPARATHYROIDISM RENAL ORIGN] Onset: 3 Chronic Other diseases of veins and lymphatics (1 source) Venous insufficiency (chronic) (peripheral); 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: [VENOUS INSUFF CHRONIC PERIPHERAL] Onset: 3 Episodic Other endocrine disorders (20 sources) Hypoglycemia; 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: [Hypoglycemia, unspecified] Chronic Other endocrine disorders (3 sources) Hypoglycemia, unspecified Onset: 1 Resolved: 2 Chronic Other gastrointestinal disorders (5 sources) Occult blood in stools; 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: [Other fecal abnormalities] 04-10-2022 Episodic Other gastrointestinal disorders (20 sources) Diarrhea; 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: [Diarrhea, unspecified] Episodic Other hematologic conditions (2 sources) Raised cardiac enzyme or marker; 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: [Other specified abnormalities of plasma proteins] 02-13-2023 Episodic Other hereditary and degenerative nervous system conditions (1 source) Other idiopathic peripheral autonomic neuropathy; 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: [OTH IDIO PERIPH AUTONOM NEUROPATHY] Onset: 2 Chronic Other infections; including parasitic (4 sources) Local infection of wound; 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: [Other injury of unspecified body region, initial encounter] 02-09-2020 Episodic Other injuries and conditions due to external causes (1 source) History of falling; 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: [HISTORY OF FALLING] Onset: 3 Episodic Other injuries and conditions due to external causes (1 source) Unspecified injury of head, initial encounter; 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: [UNSPECIFIED INJURY HEAD INITIAL ENC] Onset: 3 Episodic Other liver diseases (1 source) Fatty (change of) liver, not elsewhere classified; 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: [FATTY CHANGE LIVER NEC] Onset: 2 Chronic Other lower respiratory disease (4 sources) Pulmonary edema; 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: [Chronic pulmonary edema] 04-10-2022 Chronic Other lower respiratory disease (1 source) Personal history of pneumonia (recurrent); 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: [PERSONAL HX OF PNEUMONIA RECURRENT] Onset: 3 Episodic Other nervous system disorders (20 sources) Peripheral neuropathic pain; 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: [Polyneuropathy, unspecified] Chronic Other nervous system disorders (1 source) Other chronic pain; 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: [OTHER CHRONIC PAIN] Onset: 3 Chronic Other nervous system disorders (20 sources) Abnormal gait; 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: [Unsteadiness on feet] Episodic Other nervous system disorders (1 source) Unsteadiness on feet Episodic Other nutritional; endocrine; and metabolic disorders (20 sources) Obesity; 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: [Obesity, unspecified] 04-10-2022 Chronic Other nutritional; endocrine; and metabolic disorders (20 sources) Body mass index 30+ - obesity; 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: [Obesity, unspecified] 04-10-2022 Chronic Other nutritional; endocrine; and metabolic disorders (20 sources) Obese class II; 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: [Body mass index (BMI) 37.0-37.9, adult] Chronic Other nutritional; endocrine; and metabolic disorders (6 sources) Body mass index (BMI) 35.0-35.9, adult; 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: [BODY MASS INDEX BMI 35.0-35.9 ADULT] Onset: 1 Resolved: 2 Chronic Other nutritional; endocrine; and metabolic disorders (1 source) Obesity, unspecified; 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: [OBESITY UNSPECIFIED] Onset: 3 Chronic Other nutritional; endocrine; and metabolic disorders (1 source) Body mass index (BMI) 36.0-36.9, adult; 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: [BODY MASS INDEX BMI 36.0-36.9 ADULT] Onset: 3 Chronic Other nutritional; endocrine; and metabolic disorders (1 source) Body mass index (BMI) 33.0-33.9, adult; 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: [BODY MASS INDEX BMI 33.0-33.9 ADULT] Onset: 2 Chronic Other nutritional; endocrine; and metabolic disorders (1 source) Morbid (severe) obesity due to excess calories; 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: [MORBID SEVERE OBES D/T EXCESS SILVIA] Onset: 2 Chronic Other nutritional; endocrine; and metabolic disorders (2 sources) Body mass index (BMI) 32.0-32.9, adult Chronic Other nutritional; endocrine; and metabolic disorders (1 source) Hyperuricemia without signs of inflammatory arthritis and tophaceous disease Episodic Other skin disorders (3 sources) Ulcer; 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: [Full-term ] Chronic Demetrice-; endo-; and myocarditis; cardiomyopathy (except that caused by tuberculosis or sexually transmitted disease) (20 sources) Cardiomyopathy; 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: [Cardiomyopathy, unspecified] Onset: 2 02-12-2021 Chronic Peripheral and visceral atherosclerosis (4 sources) Peripheral vascular disease, unspecified; 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: [Atherosclerosis of other arteries] Onset: 2 Chronic Residual codes; unclassified (20 sources) Obstructive sleep apnea syndrome; 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: [Obstructive sleep apnea (adult) (pediatric)] 04-10-2022 Chronic Residual codes; unclassified (6 sources) Obstructive sleep apnea (adult) (pediatric); 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: [Obstructive sleep apnea (adult)(pediatric)] Onset: 2 Resolved: 2 Chronic Residual codes; unclassified (1 source) Sleep apnea, unspecified; 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: [SLEEP APNEA UNSPECIFIED] Onset: 3 Chronic Residual codes; unclassified (2 sources) Dependence on other enabling machines and devices; 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: [Dependence on other enabling machines and devices] Onset: 2 Chronic Residual codes; unclassified (1 source) Localized edema; 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: [LOCALIZED EDEMA] Onset: 3 Episodic Respiratory failure; insufficiency; arrest (adult) (3 sources) Chronic respiratory failure with hypoxia; 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: [Dependence on supplemental oxygen] Onset: 2 Chronic Respiratory failure; insufficiency; arrest (adult) (4 sources) Acute respiratory failure; 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: [Acute respiratory failure with hypoxia] 04-10-2022 Episodic Screening and history of mental health and substance abuse codes (1 source) Personal history of nicotine dependence; 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: [PERSONAL HISTORY OF NICOTINE DEPEND] Onset: 3 Episodic Skin and subcutaneous tissue infections (15 sources) Cellulitis of toe; 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: [Cellulitis of left toe] Onset: 3 04-10-2022 Episodic Spondylosis; intervertebral disc disorders; other back problems (20 sources) Lumbar AND/OR sacral arthritis; 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: [Unspecified inflammatory spondylopathy, lumbar region] Onset: 1 Resolved: 2 Chronic Superficial injury; contusion (7 sources) Contusion of left shoulder, initial encounter; 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: [Abrasion, right lower leg, initial encounter] Onset: 2 Episodic Thyroid disorders (20 sources) Hypothyroidism, unspecified; 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: [Subclinical hypothyroidism] Onset: 3 Chronic Unclassified (1 source) CHRN KIDNEY DISEASE STG 3 UNSP; 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: [CHRN KIDNEY DISEASE STG 3 UNSP] Onset: 3 Unclassified (7 sources) Chronic atrial fibrillation, unspecified; 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: [CHRONIC ATRIAL FIBRILLATION UNSPEC] Onset: 2 Unclassified (3 sources) Permanent atrial fibrillation; 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: [PERMANENT ATRIAL FIBRILLATION] Onset: 2 Unclassified (1 source) CONTACT W/AND (SUSP) EXPOS COVID-19; 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: [CONTACT W/AND (SUSP) EXPOS COVID-19] Onset: 3 Unclassified (1 source) PERSONAL HISTORY OF COVID-19; 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: [PERSONAL HISTORY OF COVID-19] Onset: 2 Unclassified (1 source) Other ventricular tachycardia; 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: [Other ventricular tachycardia] Onset: 2 Viral infection (4 sources) COVID-19; 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: [COVID-19] Onset: 2 Past or Other Problems Problem Classification Problem Date Documented Date Episodic/Chronic Acute and unspecified renal failure (9 sources) Acute renal failure syndrome; 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: [Acute kidney failure, unspecified] Onset: 2022 04-10-2022 Episodic Biliary tract disease (1 source) Acute cholecystitis; 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: [ACUTE CHOLECYSTITIS] Onset: 05-08-2022 Episodic Conditions associated with dizziness or vertigo (1 source) Dizziness and giddiness Onset: 03-02-2022 Resolved: 03-02-2022 Episodic Diabetes mellitus with complications (1 source) Type 2 diabetes mellitus with diabetic polyneuropathy; 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: [Type 2 diabetes mellitus with autonomic dysfunction] Diabetes mellitus without complication (5 sources) Hyperglycemia; 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: [Hyperglycemia, unspecified] Onset: 02-13-2023 02-13-2023 Episodic Fluid and electrolyte disorders (19 sources) Respiratory acidosis and metabolic alkalosis; 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: [Mixed disorder of acid-base balance] Onset: 05-08-2022 02-13-2023 Episodic Open wounds of extremities (1 source) Unspecified open wound, left lower leg, initial encounter; 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: [UNS OPEN WOUND LT LOWER LEG INITIAL] Onset: 2022 Episodic Other circulatory disease (1 source) Other specified symptoms and signs involving the circulatory and respiratory systems; 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: [OTH SPEC SX SIGNS INVLV CIRC RS] Onset: 05-18-2022 Episodic Other connective tissue disease (1 source) Pain in left foot Onset: 02-19-2022 Resolved: 02-19-2022 Episodic Other connective tissue disease (3 sources) Other specified soft tissue disorders; 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: [OTHER SPEC SOFT TISSUE DISORDERS] Onset: 01-02-2023 Episodic Other diseases of veins and lymphatics (1 source) Other specified disorders of veins; 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: [OTHER SPECIFIED DISORDERS OF VEINS] Onset: 10-05-2022 Episodic Other ear and sense organ disorders (1 source) Impacted cerumen, right ear Onset: 03-02-2022 Resolved: 03-02-2022 Episodic Other hematologic conditions (4 sources) Other specified abnormalities of plasma proteins; 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: [Other abnormal blood chemistry] Onset: 11-08-2022 02-13-2023 Episodic Other liver diseases (1 source) Abnormal levels of other serum enzymes; 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: [ABNORMAL LEVELS OTHER SERUM ENZYMES] Onset: 05-08-2022 Episodic Other lower respiratory disease (3 sources) Shortness of breath; 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: [SHORTNESS OF BREATH] Onset: 05-18-2022 Episodic Other lower respiratory disease (1 source) Dyspnea, unspecified; 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: [DYSPNEA UNSPECIFIED] Onset: 05-18-2022 Episodic Other lower respiratory disease (3 sources) Hypoxemia; 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: [HYPOXEMIA] Onset: 05-18-2022 Episodic Other screening for suspected conditions (not mental disorders or infectious disease) (5 sources) Serum creatinine raised; 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: [Other specified abnormal findings of blood chemistry] Onset: 02-13-2023 02-13-2023 Episodic Pneumonia (except that caused by tuberculosis or sexually transmitted disease) (5 sources) Pneumonia, unspecified organism; 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: [Parainfluenza virus pneumonia] Onset: 05-08-2022 Resolved: 06-20-2022 Episodic Residual codes; unclassified (5 sources) Edema, unspecified; 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: [EDEMA UNSPECIFIED] Onset: 07-20-2022 Episodic Residual codes; unclassified (1 source) Generalized edema; 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: [GENERALIZED EDEMA] Onset: 06-28-2022 Episodic Septicemia (except in labor) (4 sources) Sepsis, unspecified organism; 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: [Severe sepsis without septic shock] Onset: 04-28-2022 Episodic Unclassified (1 source) Acute cough R05.1 Unclassified (1 source) Other ventricular tachycardia; 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: [Other ventricular tachycardia] Onset: 10-27-2022 Results Test Name Value Interpretation Reference Range Facility Glucose - FINGER [facility] Glucose [Mass/Vol] 91 mg/dL [facility] Other 36on 08-13-2023 36 Pt informed [facility] A1C HEMOGLOBINon 06-29-2023 HbA1c (Bld) [Mass fraction] 7.9 % [facility] Other Glucose - FINGER [facility] Glucose [Mass/Vol] 382 mg/dL [facility] Other HbA1c (Bld) [Mass fraction]o n 06-29-2023 A1C HEMOGLOBIN [facility] [employer] Other 36on 06-20-2023 36 His potassium on 05/21 was 2.7. He needs to come to the hospital to receive IV potassium and further treatment as needed [facility] Telephoneon 06-20-2023 Telephone [facility] 36on 06-19-2023 36 [facility] lab called to re port a potassium level of 2.7 today. Melissa tried to call patient to remind him of his apt tomorrow but he did not answer and had no voicemail. [facility] 36on 06-18-2023 36 [facility] lab called to re port a critical BNP of 13,277. FYI. [facility] Telephoneon 06-18-2023 Telephone [facility] PTH INTACTon 04-12-2023 PTH, Intact 50 pg/mL Normal 15-65 [facility] Comment on above: Performed By: #### P THINT ####[facility] [address] [place] [address]Dr. Emelina Navarro HEMOGRAM AND PLATELon 2022 Hematocrit (Bld) [Volume fraction] 42.7 % Normal 42.0-54.0 [facility] Comment on above: Performed By: #### H H ####[facility] [address]rwe[address] [place] [address]Dr. Emelina Navarro Hemoglobin (Bld) [Mass/Vol] 14.3 g/dL Normal 14.0-18.0 [facility] Comment on above: Performed By: #### H H ####[facility] V[address]fjxf[address] [place] [address]Dr. Emelina Navarro MCH (RBC) [Entitic mass] 29.5 pg Normal 25.9-34.0 [facility] Comment on above: Performed By: #### H H ####[facility] Jxirzrtv[address] [place], [place] [address]Dr. Emelina Navarro MCHC (RBC) [Mass/Vol] 33.5 g/dL Normal 29.9-35.2 [facility] Comment on above: Performed By: #### H H ####[facility] Jeasrpqlpv[address] [place], [place] [address]Dr. Emelina Navarro MCV (RBC) [Entitic vol] 88.2 fL Normal 80.0-94.0 The [facility] Comment on above: Performed By: #### H H ####[facility] Uksnkidotn[address] [place], [place] [address]Dr. Emelina Navarro PLT 278 103/ul Normal 150-450 [facility] Comment on above: Performed By: #### H H ####[facility] Aoraeaeyxs[address] [place], [place] [address]Dr. Emelina Navarro RBC 4.84 106/ul Normal 4.70-6.10 [facility] Comment on above: Performed By: #### H H ####[facility] Qvoamilsei[address] [place], [place] [address]Dr. Emelina Navarro WBC 12.9 103/ul Critically high 4.0-11.0 [facility] Comment on above: Performed By: #### H H ####[facility] [address]fe[address] [place] [address]Dr. Emelina Navarro MAGNESIUMon 04-11-2023 Magnesium [Mass/Vol] 2.2 mg/dL Normal 1.8-2.4 [facility] Comment on above: Performed By: #### U JOLIE, RENAL, MG ####[facility] Favlgifouj[address] [place], [place] [address]Dr. Emelina Navarro RENAL FUNCTION PANELon 04-11 Albumin [Mass/Vol] 3.6 g/dL Normal 3.4-5.0 [facility] Comment on above: Performed By: #### U JOLIE, RENAL, MG ####[facility] Namnhaymsg[address] [place], [place] [address]Dr. Emelina Navarro Calcium [Mass/Vol] 9.5 mg/dL Normal 8.5-10.1 [facility] Comment on above: Performed By: #### U JOLIE, RENAL, MG ####[facility] Ctugovvtle[address] [place], [place] [address]Dr. Emelina Navarro Chloride [Moles/Vol] 95 mmol/L Critically low 98-107 [facility] Comment on above: Performed By: #### U JOLIE, RENAL, MG ####[facility] Qdxqikmunq[address] [place], [place] [address]Dr. Emelina Navarro CO2 [Moles/Vol] 36.4 mmol/L Critically high 21.0-32.0 The [facility] Comment on above: Performed By: #### U JOLIE, RENAL, MG ####[facility] Gaxgsrurgu[address] [place], [place] [address]Dr. Emelina Navarro Creatinine [Mass/Vol] 1.92 mg/dL Critically high 0.70-1.30 The [facility] Comment on above: Performed By: #### U JOLIE, RENAL, MG ####[facility] Ihtfmiiopv[address] [place], [place] [address]Dr. Emelina Navarro EGFR-AF GABONESE 42 mL/min/1.73m2 Critically low >=60 The [facility] Comment on above: Performed By: #### U JOLIE, RENAL, MG ####[facility] [address] [place], [place] [address]Qs. Emelina Navarro EGFR-NON AF GABONESE 35 mL/min/1.73m2 Critically low >=60 The [facility] Comment on above: Performed By: #### U JOLIE, RENAL, MG ####[facility] Devrxsiljs0875 [place], [place] [address]Gm. Emelina Navarro Glucose [Mass/Vol] 96 mg/dL Normal 74-106 [facility] Comment on above: Performed By: #### U JOLIE, RENAL, MG ####[facility] [address] [place] [id number]. Emelina Navarro Phosphate [Mass/Vol] 4.0 mg/dL Normal 2.6-4.7 The [facility] Comment on above: Performed By: #### U JOLIE, RENAL, MG ####[facility] [address]neyx[address] [place] [id number]. Emelina Navarro Potassium [Moles/Vol] 3.1 mmol/L Critically low 3.5-5.1 The [facility] Comment on above: Performed By: #### U JOLIE, RENAL, MG ####[facility] [address]actv[address]ye[address] [place] [address]Dr. Emelina Navarro Sodium [Moles/Vol] 137 mmol/L Normal 136-145 [facility] Comment on above: Performed By: #### U JOLIE, RENAL, MG ####[facility] [address]xp[address] [place] [id number]. Emelina Navarro Urea nitrogen [Mass/Vol] 31.0 mg/dL Critically high 7.0-18.0 The [facility] Comment on above: Performed By: #### U JOLIE, RENAL, MG ####[facility] [address]folwnp[address] [place] [id number]. Emelina Navarro UA RANDOM W/MICROSCOPICon BACTERIA NONE SEEN Normal NONE SEEN The [facility] Comment on above: Performed By: #### U AMIC ####[facility] Znwgerrftj4[address] [place] [id number]. Emelina Navarro Bilirubin Ql (U) Negative Normal NEGATIVE [facility] Comment on above: Performed By: #### U AMIC ####[facility] Arwbhrhxnk[address] [place] [address]Dr. Emelina Navarro CAST NONE SEEN Normal NONE SEEN The [facility] Comment on above: Performed By: #### U AMIC ####[facility] Lxaanuuuig[address] [place] [address]Dr. Emelina Navarro Clarity (U) CLEAR Normal CLEAR The [facility] Comment on above: Performed By: #### U AMIC ####[facility] Iztapvliej[address] [place] [address]Dr. Emelina Navarro Color (U) LT. YELLOW Normal YELLOW The [facility] Comment on above: Performed By: #### U AMIC ####[facility] Dxhfonyjsg3882 [place] [address]Dr. Emelina Navarro Crystals LM Nom (Urine sed) NONE SEEN Normal NONE SEEN The [facility] Comment on above: Performed By: #### U AMIC ####[facility] Kibcxsxsfs[address] [place], [place] [address]Dr. Emelina Navarro Epithelial cells LM Ql (Urine sed) FEW Abnormal NONE SEEN /RARE The [facility] Comment on above: Performed By: #### U AMIC ####[facility] Vbjpsravps[address] [place], [place] [address]Dr. Emelina Navarro Glucose Ql (U) 500 mg/dl Abnormal NEGATIVE The [facility] Comment on above: Performed By: #### U AMIC ####[facility] Xnfjmuptdd[address] [place], [place] [address]Dr. Emelina Navarro Hemoglobin Ql (U) Negative Normal NEGATIVE The [facility] Comment on above: Performed By: #### U AMIC ####[facility] Pjxgdomzzb[address] [place], [place] [address]Dr. Emelina Navarro Ketones Ql (U) Negative Normal NEGATIVE The [facility] Comment on above: Performed By: #### U AMIC ####[facility] S[address]cmnqfkug[address] [place], [place] [address]Dr. Emelina Navarro LEUKOCYTES Negative Normal NEGATIVE The [facility] Comment on above: Performed By: #### U AMIC ####[facility] Zqs[address]vyuyc[address] [place] [address]Dr. Emelina Navarro MUCOUS NONE SEEN Normal NONE SEEN The [facility] Comment on above: Performed By: #### U AMIC ####[facility] Tgbcrogpae6524 [place] [address]Dr. Emelina Navarro Nitrite Ql (U) Negative Normal NEGATIVE The [facility] Comment on above: Performed By: #### U AMIC ####[facility] Wzzbexrdwn[address]50 [place] [address]Dr. Emeilna Navarro pH (U) 6.5 [pH] Normal 5-9 [facility] Comment on above: Performed By: #### U AMIC ####[facility] Uchvyuxmfd[address] [place], [place] [address]Dr. Emelina Navarro RBC NONE SEEN Abnormal 0-2 The [facility] Comment on above: Performed By: #### U AMIC ####[facility] Zzedukvgln[address] [place], [place] [address]Dr. Emelina Navarro SPEC GRAVITY 1.005 Normal 1.005-<=1. 025 The [facility] Comment on above: Performed By: #### U AMIC ####[facility] Sozzjidyew[address] [place], [place] [address]Dr. Emelina Navarro UA PROTEIN Negative Normal NEGATIVE/ TRACE The [facility] Comment on above: Performed By: #### U AMIC ####[facility] Dsikgkusoj[address] [place], [place] [address]Dr. Emelina Navarro Urobilinogen Qn (U) 0.2 {Ashley'U}/dL Normal 0.2 - 1. 0 The [facility] Comment on above: Performed By: #### U AMIC ####[facility] Ehvdlxbmkw[address] [place], [place] [address]Dr. Emelina Navarro WBC NONE SEEN Normal NONE SEEN The [facility] Comment on above: Performed By: #### U AMIC ####[facility] Ypofdkihiq[address] [place], [place] [address]Dr. Emelina Navarro URIC ACID SERUMon 04-11-2023 Urate [Mass/Vol] 12.2 mg/dL Critically high 3.5-7.2 The [facility] Comment on above: Performed By: #### U JOLIE, RENAL, MG ####[facility] T[address]zdsbvqgm56[address] [place] [address]Dr. Emelina Navarro URINE T PROTEIN CREAT RATIOo n 04-11-2023 Protein (U) [Mass/Vol] 9.3 mg/dL Normal <=12.0 The [facility] Comment on above: Performed By: #### U RTPCR ####[facility] Qpfrapdqkt[address] [place], [place] [address]Dr. Emelina Navarro UR PROT CREAT RAT 0.37 Normal The [facility] Comment on above: Performed By: #### U RTPCR ####[facility] Bjtpsqohpa[address] [place], [place] [address]Dr. Emelina Navarro URINE CREAT 25.00 mg/dL Normal 20.00-300. 00 The [facility] Comment on above: Performed By: #### U RTPCR ####[facility] Drnslyooxj[address] [place], [place] [address]Dr. Emelina Navarro VITAMIN D 25 OHon 04-11-2023 VIT D 25-OH 51.8 ng/mL Normal The [facility] Comment on above: Performed By: #### V ITAD ####[facility] Yatwljjheg[address] [place], [place] [address]Dr. Emelina Navarro VIT D RANGES SEE BELOW Normal The [facility] Comment on above: Result Comment: <20 ng/mL Vit D deficient 20 - <30 ng/mL Vit D insufficient 30 - 100 ng/mL Vit D sufficient >100 ng/mL Potential Toxicity Performed By: #### V ITAD ####[facility] Gjnzvwhomn[address] [place], [place] [address]Dr. Emelina Ramon BNPon 03-28-2023 Natriuretic peptide B (Bld) [Mass/Vol] 7479.0 pg/mL Critically high <=900.0 The [facility] Comment on above: Performed By: #### B WELL TESTER, CMP ####[facility] Csmydzkezq[address] [place], [place] [address]Dr. Emelina Ramon CBC AUTO DIFFon 03-28-2023 BASO # 0.1 103/ul Normal 0.0-0.1 The [facility] Comment on above: Performed By: #### C BC ####[facility] Eqtrffmjcy3[address] [place] [address]Dr. Emelina Navarro Basophils/100 WBC (Bld) 0.5 % Normal 0.2-2.0 The [facility] Comment on above: Performed By: #### C BC ####[facility] Neoscujfvc[address] [place], [place] [address]Dr. Emelina Navarro EO # 0.4 103/ul Normal 0.0-0.7 The [facility] Comment on above: Performed By: #### C BC ####[facility] Yztchmlgnz[address] [place], [place] [address]Dr. Emelina Navarro Eosinophils/100 WBC (Bld) 3.7 % Normal 0.9-7.0 The [facility] Comment on above: Performed By: #### C BC ####[facility] I[address]qoybvpex[address] [place], [place] [address]Dr. Emelina Navarro Erythrocyte distribution width (RBC) [Ratio] 18.2 % Critically high 11.0-15.0 The [facility] Comment on above: Performed By: #### C BC ####[facility] Pzmcjdjnpi[address] [place], [place] [address]Dr. Emelina Navarro Hematocrit (Bld) [Volume fraction] 39.0 % Critically low 42.0-54.0 [facility] Comment on above: Performed By: #### C BC ####[facility] V[address]qinxtjk[address] [place], [place] [address]Dr. Emelina Navarro Hemoglobin (Bld) [Mass/Vol] 12.8 g/dL Critically low 14.0-18.0 [facility] Comment on above: Performed By: #### C BC ####[facility] [facility] [address]fq[address] [place], [place] [address]Dr. Emelina Navarro IG # 0.05 10e3/ul Critically high 0.00-0.03 [facility] Comment on above: Performed By: #### C BC ####[facility] Duarrjirpl6144 [place] [phone]. Emelina Navarro IG % 0.5 % Normal 0.0-0.5 The [facility] Comment on above: Performed By: #### C BC ####[facility] Xwpojawtjl0145 [place] [address]Dr. Emelina Ramon LYMPH # 1.4 103/ul Normal 1.2-3.8 The [facility] Comment on above: Performed By: #### C BC ####[facility] Ycxhqlmsfs6835 [place] [address]Dr. Awildanitza Navarro Lymphocytes/100 WBC (Bld) 13.1 % Critically low 20.5-60.0 The [facility] Comment on above: Performed By: #### C BC ####[facility] Ihyzgvefen9561 [place] [address]Dr. Emelina Navarro MANUAL DIFF REQ NO Normal [facility] Comment on above: Performed By: #### C BC ####[facility] Muqlxvaumm0771 [place] [address]Dr. Emelina Ramon MCH (RBC) [Entitic mass] 29.8 pg Normal 25.9-34.0 The [facility] Comment on above: Performed By: #### C BC ####[facility] Nqtmzukcwz0297 [place] [address]Dr. Emelina Navarro MCHC (RBC) [Mass/Vol] 32.8 g/dL Normal 29.9-35.2 The [facility] Comment on above: Performed By: #### C BC ####[facility] Wpsxjmdhzl4646 [place] [address]Dr. Awildanitza Navarro MCV (RBC) [Entitic vol] 90.9 fL Normal 80.0-94.0 The [facility] Comment on above: Performed By: #### C BC ####[facility] Ympkbvetcb[address] [place], [place] [address]Dr. Emelina Navarro MONO # 0.8 103/ul Normal 0.3-0.8 The [facility] Comment on above: Performed By: #### C BC ####[facility] Mfjbhjqrxu[address] [place], [place] [address]Dr. Emelina Navarro Monocytes/100 WBC (Bld) 7.5 % Normal 1.7-12.0 The [facility] Comment on above: Performed By: #### C BC ####[facility] Jbfyvjpmlw3136 [place] [phone]. Emelina Navarro NEUT # 8.1 103/ul Critically high 1.4-6.5 [facility] Comment on above: Performed By: #### C BC ####[facility] Yrjwzwbopy6497 [place] [address]Dr. Emelina Navarro Neutrophils/100 WBC (Bld) 74.7 % Normal 43.0-75.0 The [facility] Comment on above: Performed By: #### C BC ####[facility] Jpmoanvyit2985 [place] [address]Dr. Emelina Navarro Platelet mean volume (Bld) [Entitic vol] 10.0 fL Normal 9.5-13.5 The [facility] Comment on above: Performed By: #### C BC ####[facility] Jbautcglfg8501 [place] [address]Dr. Emelina Navarro PLT 242 103/ul Normal 150-450 [facility] Comment on above: Performed By: #### C BC ####[facility] Dkwpayxmlf3424 [place] [address]Dr. Emelina Navarro RBC 4.29 106/ul Critically low 4.70-6.10 [facility] Comment on above: Performed By: #### C BC ####[facility] Xalfcsyqdh7449 [place] [address]Dr. Emelina Navarro WBC 10.8 103/ul Normal 4.0-11.0 The [facility] Comment on above: Performed By: #### C BC ####[facility] Gdasxdqeru2971 [place] [address]Dr. Emelina Navarro PROF 14(COMP METB)on 023 Albumin [Mass/Vol] 2.7 g/dL Critically low 3.4-5.0 Th [facility] Comment on above: Performed By: #### B WELL TESTER, CMP ####[facility] Kqswqwlpyi7529 [place] [phone]. Emelina Navarro Albumin/Globulin [Mass ratio] 0.6 {ratio} Normal [facility] Comment on above: Performed By: #### B WELL TESTER, CMP ####[facility] Tloodxnbzq4051 [place], [place] [address]Ps. Emelina Navarro ALP [Catalytic activity/Vol] 105 U/L Normal 46-116 [facility] Comment on above: Performed By: #### B WELL TESTER, CMP ####[facility] Wwigjqyheb0094 [place] [phone]. Emelina Navarro ALT [Catalytic activity/Vol] 21 U/L Normal 16-63 [facility] Comment on above: Performed By: #### B WELL TESTER, CMP ####[facility] Kuqqbfmpmp7454 [place] [phone]. Emelina Navarro Anion gap [Moles/Vol] 11.6 mmol/L Normal [facility] Comment on above: Performed By: #### B WELL TESTER, CMP ####[facility] Vaadkhsfzs2224 [place] [phone]. Emelina Navarro AST [Catalytic activity/Vol] 25 U/L Normal 15-37 [facility] Comment on above: Performed By: #### B WELL TESTER, CMP ####[facility] Bcrubdltqw3594 [place] [phone]. Emelina Ramon Bilirubin [Mass/Vol] 0.8 mg/dL Normal 0.2-1.0 [facility] Comment on above: Performed By: #### B WELL TESTER, CMP ####[facility] Qipporghis5425 [place] [phone]. Emelina Ramon Calcium [Mass/Vol] 8.1 mg/dL Critically low 8.5-10.1 [facility] Comment on above: Performed By: #### B WELL TESTER, CMP ####[facility] Lcwitgbhmk2532 [place] [phone]. Emelina Navarro Chloride [Moles/Vol] 100 mmol/L Normal 98-107 [facility] Comment on above: Performed By: #### B WELL TESTER, CMP ####[facility] Mdfgqshmjs0255 [place] [address]Dr. Emelina Navarro CO2 [Moles/Vol] 29.2 mmol/L Normal 21.0-32.0 [facility] Comment on above: Performed By: #### B WELL TESTER, CMP ####[facility] Djdbmafpka[address] [place], [place] [address]Dr. Emelina Navarro Creatinine [Mass/Vol] 1.66 mg/dL Critically high 0.70-1.30 [facility] Comment on above: Performed By: #### B WELL TESTER, CMP ####[facility] Hndnoodtyz5[address] [place], [place] [address]Dr. Emelina Ramon EGFR-AF GABONESE 50 mL/min/1.73m2 Critically low >=60 [facility] Comment on above: Performed By: #### B WELL TESTER, CMP ####[facility] Njburwczzx5[address] [place], [place] [address]Dr. Emelina Navarro EGFR-NON AF GABONESE 41 mL/min/1.73m2 Critically low >=60 [facility] Comment on above: Performed By: #### B WELL TESTER, CMP ####[facility] Bvafuevnxt99[address] [place], [place] [address]Dr. Emelina Ramon Globulin (S) [Mass/Vol] 4.2 g/dL Normal [facility] Comment on above: Performed By: #### B WELL TESTER, CMP ####[facility] Owbucgmzaa9[address] [place], [place] [address]Dr. Emelina Ramon Glucose [Mass/Vol] 126 mg/dL Critically high 74-106 [facility] Comment on above: Performed By: #### B WELL TESTER, CMP ####[facility] Qsoxtmeihk2383[address] [place], [place] [address]Dr. Emelina Navarro Potassium [Moles/Vol] 3.8 mmol/L Normal 3.5-5.1 [facility] Comment on above: Performed By: #### B WELL TESTER, CMP ####[facility] Mtqmsszucp[address] [place], [place] [address]Dr. Emelina Navarro Protein [Mass/Vol] 6.9 g/dL Normal 6.4-8.2 [facility] Comment on above: Performed By: #### B WELL TESTER, CMP ####[facility] Lyrzwpmnkq0042 [place] [address]Dr. Emelina Navarro Sodium [Moles/Vol] 137 mmol/L Normal 136-145 [facility] Comment on above: Performed By: #### B WELL TESTER, CMP ####[facility] Jbrvzwffmi2057 [place] [address]Dr. Emelina Navarro Urea nitrogen [Mass/Vol] 32.0 mg/dL Critically high 7.0-18.0 [facility] Comment on above: Performed By: #### B WELL TESTER, CMP ####[facility] Fsdzozbvhd35[address] [place], [place] [address]Dr. Emelina Navarro Urea nitrogen/Creatinine [Mass ratio] 19.3 mg/mg Normal [facility] Comment on above: Performed By: #### B WELL TESTER, CMP ####[facility] Tzawexgiyw[address] [place], [place] [address]Dr. Emelina Navarro PROTIMEon 03-28-2023 INR Coag (PPP) [Relative time] 2.59 {INR} Normal [facility] Comment on above: Performed By: #### P T ####[facility] Dwzuxafwsj18[address] [place], [place] [address]Dr. Emelina Navarro INR GUIDELINES SEE BELOW Normal [facility] Comment on above: Result Comment: WENDY RED INR: 2.0 - 3.0 CONDITIONS NOT LISTED BELOW 2.5 - 3.5 FOR PROSTHETIC HEART VALVE REPLACEMENT 2.5 - 3.5 RECURRENT THROMBOSIS Performed By: #### P T ####[facility] Ilahdzemzo9197 [place] [address]Dr. Emelina Navarro PT Coag (PPP) [Time] 26.0 s Critically high 9.0-11.6 The [facility] Comment on above: Performed By: #### P T ####[facility] Mdvfwsvytt9778 [place] [address]Dr. Emelina Navarro [facility] SED RATE 62 mm/hr Critically high <=20 [facility] Comment on above: Performed By: #### S EDR ####[facility] Utkbnbpmxs2057 [place] [phone]. Emelina Navarro BNPon 3 Natriuretic peptide B (Bld) [Mass/Vol] 26163.0 pg/mL Critically high <=900.0 [facility] Comment on above: Performed By: #### B WELL TESTER ####[facility] Fefwemsxya64[address] [place], [place] [address]Dr. Emelina Navarro CARDIAC IMTIAZ 3-6on 3 CK [Catalytic activity/Vol] 59 U/L Normal 39-308 [facility] Comment on above: Performed By: #### C MREP ####[facility] Bdrsaxxbgl422[address] [place], [place] [address]Dr. Emelina Navarro CK.MB [Mass/Vol] 1.98 ng/mL Normal <=3.60 The [facility] Comment on above: Performed By: #### C MREP ####[facility] Fqacexuqxg447[address] [place], [place] [address]Dr. Emelina Navarro HSTROP 52.5 pg/mL Normal 4.0-76.1 The [facility] Comment on above: Result Comment: CUT- OFF POINTS HAVE BEEN ESTABLISHED BASED ON THE FOURTH UNIVERSAL DEFINITIONS OF MYOCARDIALINFARCTION. THE UPPER REFERENCE LIMIT (URL) OF TROPONIN, DEFINED THE 99TH PERCENTILE OFcTnI DISTRIBUTION IN A REFERENCE POPULATION, HAS BEEN CONFIRMED THE DECISION THRESHOLDFOR ND DIAGNOSIS. Performed By: #### C MREP ####[facility] Zvclnzddrv[address] [place], [place] [address]Dr. Emelina Navarro CK [Catalytic activity/Vol] 41 U/L Normal 39-308 The [facility] Comment on above: Performed By: #### C MREP ####[facility] N[address]ofviyip[address] [place], [place] [id number]. Emelina Navarro CK.MB [Mass/Vol] 1.26 ng/mL Normal <=3.60 The [facility] Comment on above: Performed By: #### C MREP ####[facility] Dwtyfnizni38[address] [place], [place] [address]Dr. Emelina Navarro HSTROP 49.5 pg/mL Normal 4.0-76.1 The [facility] Comment on above: Result Comment: CUT- OFF POINTS HAVE BEEN ESTABLISHED BASED ON THE FOURTH UNIVERSAL DEFINITIONS OF MYOCARDIALINFARCTION. THE UPPER REFERENCE LIMIT (URL) OF TROPONIN, DEFINED THE 99TH PERCENTILE OFcTnI DISTRIBUTION IN A REFERENCE POPULATION, HAS BEEN CONFIRMED THE DECISION THRESHOLDFOR ND DIAGNOSIS. Performed By: #### C MREP ####[facility] Acrlhfgnkv5327 [place] [address]Dr. Emelina Navarro CBC AUTO DIFFon 03-27-2023 BASO # 0.0 103/ul Normal 0.0-0.1 The [facility] Comment on above: Performed By: #### C BC ####[facility] Pqqxpvrcra[address] [place], [place] [address]DrWesley Navarro Basophils/100 WBC (Bld) 0.3 % Normal 0.2-2.0 The [facility] Comment on above: Performed By: #### C BC ####[facility] Xsngxdvdqe99[address] [place], [place] [address]Dr. Emelina Navarro EO # 0.4 103/ul Normal 0.0-0.7 The [facility] Comment on above: Performed By: #### C BC ####[facility] Fcinjovuar232[address] [place], [place] [address]Dr. Emelina Navarro Eosinophils/100 WBC (Bld) 3.3 % Normal 0.9-7.0 The [facility] Comment on above: Performed By: #### C BC ####[facility] Yeqiznzjdm1545[address] [place], [place] [address]Dr. Emelina Navarro Erythrocyte distribution width (RBC) [Ratio] 17.9 % Critically high 11.0-15.0 The [facility] Comment on above: Performed By: #### C BC ####[facility] Lxsvdgffsh[address] [place], [place] [address]DrWesley Navarro Hematocrit (Bld) [Volume fraction] 42.3 % Normal 42.0-54.0 The [facility] Comment on above: Performed By: #### C BC ####[facility] Svliladscz66[address] [place], [place] [address]Dr. Emelina Navarro Hemoglobin (Bld) [Mass/Vol] 13.8 g/dL Critically low 14.0-18.0 [facility] Comment on above: Performed By: #### C BC ####[facility] Qqdficjatg2365 [place] [phone] Navarro IG # 0.07 10e3/ul Critically high 0.00-0.03 [facility] Comment on above: Performed By: #### C BC ####[facility] Oecyvfxtub5473 [place] [address]DrWesley Navarro IG % 0.5 % Normal 0.0-0.5 [facility] Comment on above: Performed By: #### C BC ####[facility] Rwerelvbrq9[address] [place], [place] [address]DrWesley Navarro LYMPH # 2.3 103/ul Normal 1.2-3.8 The [facility] Comment on above: Performed By: #### C BC ####[facility] Hbfpjudrch[address] [place], [place] [address]DrWesley Navarro Lymphocytes/100 WBC (Bld) 17.5 % Critically low 20.5-60.0 [facility] Comment on above: Performed By: #### C BC ####[facility] Yvcbtbchnq[address] [place], [place] [address]DrWesley Navarro MANUAL DIFF REQ NO Normal [facility] Comment on above: Performed By: #### C BC ####[facility] Iyfjbptemz6[address] [place], [place] [address]DrWesley Navarro MCH (RBC) [Entitic mass] 29.3 pg Normal 25.9-34.0 The [facility] Comment on above: Performed By: #### C BC ####[facility] Qjbztmsaxi6986[address] [place], [place] [address]DrWesley Navarro MCHC (RBC) [Mass/Vol] 32.6 g/dL Normal 29.9-35.2 The [facility] Comment on above: Performed By: #### C BC ####[facility] Pzahfbrqpt09[address] [place], [place] [address]Dr. Emelina Navarro MCV (RBC) [Entitic vol] 89.8 fL Normal 80.0-94.0 The [facility] Comment on above: Performed By: #### C BC ####[facility] Kpvsburrmk8154[address] [place], [place] [address]Dr. Kaisernitza Ramon MONO # 1.0 103/ul Critically high 0.3-0.8 [facility] Comment on above: Performed By: #### C BC ####[facility] Yiqorgkzmq8012[address] [place], [place] [address]DrWesley Navarro Monocytes/100 WBC (Bld) 7.8 % Normal 1.7-12.0 The [facility] Comment on above: Performed By: #### C BC ####[facility] Fignyoyjlr[address] [place], [place] [address]DrWesley Kaisernitza Navarro NEUT # 9.3 103/ul Critically high 1.4-6.5 [facility] Comment on above: Performed By: #### C BC ####[facility] Vdmoyjhwdj314[address] [place], [place] [address]DrWesley Navarro Neutrophils/100 WBC (Bld) 70.6 % Normal 43.0-75.0 The [facility] Comment on above: Performed By: #### C BC ####[facility] Csyvrtsbzs[address] [place], [place] [address]DrWesley Navarro Platelet mean volume (Bld) [Entitic vol] 9.6 fL Normal 9.5-13.5 The [facility] Comment on above: Performed By: #### C BC ####[facility] Tvxlprevio0214[address] [place], [place] [address]DrWesley Navarro PLT 248 103/ul Normal 150-450 [facility] Comment on above: Performed By: #### C BC ####[facility] Kelbibvgys1262[address] [place], [place] [address]DrWesley Navarro RBC 4.71 106/ul Normal 4.70-6.10 The [facility] Comment on above: Performed By: #### C BC ####[facility] Yrruhxzign40[address] [place], [place] [address]DrWesley Navarro WBC 13.2 103/ul Critically high 4.0-11.0 The [facility] Comment on above: Performed By: #### C BC ####[facility] Nmboijuhbf4891 [place] [phone]. Emelina Navarro DIGOXINon 03-27-2023 DIG 1.1 ng/mL Normal 0.9-2.0 [facility] Comment on above: Performed By: #### D IG ####[facility] Tzvqswsrzq7959 [place] [phone]. Emelina Navarro LACTATE/LACTIC ACIDon 2022 Lactate [Moles/Vol] 0.8 mmol/L Normal 0.4-2.0 [facility] Comment on above: Performed By: #### L ACT ####[facility] Rpoeopequf0992 [place] [address]Dr. Emelina Navarro LIPID PROFILEon 03-27-2023 CHOL-HDL RATIO NORM SEE BELOW Normal [facility] Comment on above: Result Comment: 3.3 - 4.4 LOW RISK 4.4 - 7.1 AVERAGE RISK 7.1 - 11.0 MODERATE RISK >11.0 HIGH RISK Performed By: #### L IPID, TSH ####[facility] Uocexsrpqf4711 [place] [phone]. Emelina Navarro Cholesterol [Mass/Vol] 86 mg/dL Normal <=200 [facility] Comment on above: Performed By: #### L IPID, TSH ####[facility] Blyncdjzka9142 [place] [phone]. Emelina Navarro Cholesterol in HDL [Mass/Vol] 29 mg/dL Critically low 40-60 [facility] Comment on above: Performed By: #### L IPID, TSH ####[facility] Ivonbofhpz4524 [place] [phone]. Emelina Ramon Cholesterol in LDL [Mass/Vol] 37.8 mg/dL Normal [facility] Comment on above: Performed By: #### L IPID, TSH ####[facility] Mxkygmghge1804 [place] [phone]. Awildanitza Ramon Cholesterol.total/Cho lesterol in HDL [Mass ratio] 3.0 {ratio} Normal [facility] Comment on above: Performed By: #### L IPID, TSH ####[facility] Usntkgmwog2249 [place] [address]Dr. Emelina Navarro HDL NORMAL > or = 60 mg/dl - LO W CARDIOVASCULAR RISK <40 mg/dl - HIGH CARDIOVASCULAR RISK Normal [facility] Comment on above: Performed By: #### L IPID, TSH ####[facility] Mllssfvled3763 [place] [address]Dr. Emelina Navarro LDL CALC NORMAL SEE BELOW Normal [facility] Comment on above: Result Comment: <100 mg/dl OPTIMAL 100 - 129 mg/dl NEAR OR ABOVE OPTIMAL 130 - 159 mg/dl BORDERLINE HIGH 160 - 189 mg/dl HIGH >190 mg/dl VERY HIGH Performed By: #### L IPID, TSH ####[facility] Oihclmivxy1097 [place] [address]Dr. Emelina Navarro Triglyceride [Mass/Vol] 96 mg/dL Normal <=150 [facility] Comment on above: Performed By: #### L IPID, TSH ####[facility] Hbnjfjzdks2525 [place] [address]Dr. Emelina Navarro VLDL CALC 19.2 mg/dL Normal [facility] Comment on above: Performed By: #### L IPID, TSH ####[facility] Mvtwefeqgj1128 [place] [address]Dr. Emelina Navarro POINT OF CARE GLUCOSEon Glucose [Mass/Vol] 175 mg/dL Critically high 74-106 [facility] Comment on above: Performed By: #### P OCGLUC ####[facility] Josqwsakqe5918 [place] [address]Dr. Emelina Navarro Glucose [Mass/Vol] 196 mg/dL Critically high 74-106 [facility] Comment on above: Performed By: #### P OCGLUC ####[facility] Fzojbhhfrl8152 [place] [address]Dr. Emelina Navarro PROF 14(COMP METB)on 023 Albumin [Mass/Vol] 2.9 g/dL Critically low 3.4-5.0 [facility] Comment on above: Performed By: #### C MP ####[facility] Iekdyyqgya1045 [place] [address]Dr. Emelina Navarro Albumin/Globulin [Mass ratio] 0.6 {ratio} Normal [facility] Comment on above: Performed By: #### C MP ####[facility] Ciwbujfbcv8574 [place] [address]Dr. Awildanitza Ramon ALP [Catalytic activity/Vol] 112 U/L Normal 46-116 [facility] Comment on above: Performed By: #### C MP ####[facility] Eznjawcgrt[address] [place], [place] [address]Dr. Emelina Navarro ALT [Catalytic activity/Vol] 23 U/L Normal 16-63 [facility] Comment on above: Performed By: #### C MP ####[facility] Biuxrqoasp[address] [place], [place] [address]Dr. Emelina Navarro Anion gap [Moles/Vol] 9.5 mmol/L Normal [facility] Comment on above: Performed By: #### C MP ####[facility] Ltrggxoizt13[address] [place], [place] [address]Dr. Awildanitza Navarro AST [Catalytic activity/Vol] 30 U/L Normal 15-37 [facility] Comment on above: Performed By: #### C MP ####[facility] Foudcejomi[address] [place], [place] [address]Dr. Emelina Navarro Bilirubin [Mass/Vol] 0.8 mg/dL Normal 0.2-1.0 [facility] Comment on above: Performed By: #### C MP ####[facility] Inuxtwjhed27[address] [place], [place] [address]Dr. Emelina Navarro Calcium [Mass/Vol] 8.2 mg/dL Critically low 8.5-10.1 [facility] Comment on above: Performed By: #### C MP ####[facility] Pjpmpimgsk6[address] [place], [place] [address]Dr. Emelina Navarro Chloride [Moles/Vol] 100 mmol/L Normal 98-107 [facility] Comment on above: Performed By: #### C MP ####[facility] Brwuqgqfss9003 [place] [phone]. Emelina Navarro CO2 [Moles/Vol] 32.9 mmol/L Critically high 21.0-32.0 [facility] Comment on above: Performed By: #### C MP ####[facility] Wmcmueumma3630 [place] [phone]. Emelina Navarro Creatinine [Mass/Vol] 1.60 mg/dL Critically high 0.70-1.30 [facility] Comment on above: Performed By: #### C MP ####[facility] Dmazkvolzb37[address] [place] [id number]. Emelina Navarro EGFR-AF GABONESE 52 mL/min/1.73m2 Critically low >=60 [facility] Comment on above: Performed By: #### C MP ####[facility] Yibcmjcyog[address] [place] [address]Dr. Emelina Navarro EGFR-NON AF GABONESE 43 mL/min/1.73m2 Critically low >=60 [facility] Comment on above: Performed By: #### C MP ####[facility] Fduykkgmro[address] [place] [address]Dr. Emelina Navarro Globulin (S) [Mass/Vol] 4.6 g/dL Normal [facility] Comment on above: Performed By: #### C MP ####[facility] Xogmfkykya52[address] [place] [address]Dr. Emelina Navarro Glucose [Mass/Vol] 76 mg/dL Normal 74-106 [facility] Comment on above: Performed By: #### C MP ####[facility] Cutangftob2754 [place] [address]Dr. Emelina Navarro Potassium [Moles/Vol] 3.4 mmol/L Critically low 3.5-5.1 [facility] Comment on above: Performed By: #### C MP ####[facility] Sjzabyybkb6445 [place] [address]Dr. Emelina Navarro Protein [Mass/Vol] 7.5 g/dL Normal 6.4-8.2 [facility] Comment on above: Performed By: #### C MP ####[facility] Buddowbpab2340 [place] [address]Dr. Emelina Navarro Sodium [Moles/Vol] 139 mmol/L Normal 136-145 [facility] Comment on above: Performed By: #### C MP ####[facility] Jxxpmzaxbk0519 [place] [address]Dr. Emelina Navarro Urea nitrogen [Mass/Vol] 30.0 mg/dL Critically high 7.0-18.0 [facility] Comment on above: Performed By: #### C MP ####[facility] Zrcphmert[address] [place], [place] [address]Dr. Emelina Navarro Urea nitrogen/Creatinine [Mass ratio] 18.8 mg/mg Normal [facility] Comment on above: Performed By: #### C MP ####[facility] Dhkicuk[address] [place], [place] [address]Dr. Emelina Navarro PROTIMEon 03-27-2023 INR Coag (PPP) [Relative time] 2.58 {INR} Normal [facility] Comment on above: Performed By: #### P T ####[facility] Chdpduypha[address] [place], [place] [address]Dr. Emelina Navarro INR GUIDELINES SEE BELOW Normal The [facility] Comment on above: Result Comment: WENDY RED INR: 2.0 - 3.0 CONDITIONS NOT LISTED BELOW 2.5 - 3.5 FOR PROSTHETIC HEART VALVE REPLACEMENT 2.5 - 3.5 RECURRENT THROMBOSIS Performed By: #### P T ####[facility] Bzofubjiih[address] [place], [place] [address]Dr. Emelina Navarro PT Coag (PPP) [Time] 25.9 s Critically high 9.0-11.6 [facility] Comment on above: Performed By: #### P T ####[facility] Uqjkxbxklj[address] [place], [place] [address]Dr. Emelina Navarro T4on 03-27-2023 T4 [Mass/Vol] 6.50 ug/dL Normal 4.50-12.10 [facility] Comment on above: Performed By: #### T 4 ####[facility] Gxgjwljlps5[address] [place] [address]Dr. Emelina Navarro TSHon 03-27-2023 TSH 5.619 uIU/mL Critically high 0.358-3.74 0 [facility] Comment on above: Performed By: #### L IPID, TSH ####[facility] Mggnufhczk4[address] [place] [address]Dr. Emelina Navarro US FERNY DOP LEG RTon 03-27-20 23 US FERNY DOP LEG RT Normal [facility] XR CHEST 1 Von 03-27-2023 XR CHEST 1 V Normal [facility] XR FOOT RT MIN 3 VIEWSon XR FOOT RT MIN 3 VIEWS Normal [facility] BNPon 03-26-2023 Natriuretic peptide B (Bld) [Mass/Vol] 16922.0 pg/mL Critically high <=900.0 [facility] Comment on above: Performed By: #### B MP, CRP, CMADM, BNP ####[facility] Oswzyancqo6[address] [place] [address]Dr. Emelina Navarro CARDIAC IMTIAZ ADMITon 023 CK [Catalytic activity/Vol] 48 U/L Normal 39-308 [facility] Comment on above: Performed By: #### B MP, CRP, CMADM, BNP ####[facility] Mtpippukto5[address] [place] [address]Dr. Emelina Navarro CK.MB [Mass/Vol] 1.48 ng/mL Normal <=3.60 The [facility] Comment on above: Performed By: #### B MP, CRP, CMADM, BNP ####[facility] Mcwseuwadr45[address] [place] [address]Dr. [facility] [place] Ramon HSTROP 49.9 pg/mL Normal 4.0-76.1 [facility] Comment on above: Result Comment: CUT- OFF POINTS HAVE BEEN ESTABLISHED BASED ON THE FOURTH UNIVERSAL DEFINITIONS OF MYOCARDIALINFARCTION. THE UPPER REFERENCE LIMIT (URL) OF TROPONIN, DEFINED THE 99TH PERCENTILE OFcTnI DISTRIBUTION IN A REFERENCE POPULATION, HAS BEEN CONFIRMED THE DECISION THRESHOLDFOR ND DIAGNOSIS. Performed By: #### B MP, CRP, CMADM, BNP ####[facility] Mlzipoxmhl3[address] [place] [phone]. Emelina Navarro URBANO 117 ng/mL Critically high 16-96 [facility] Comment on above: Performed By: #### B MP, CRP, CMADM, BNP ####[facility] Iqubxjgopy5[address] [place] [phone]. Emelina Navarro CBC AUTO DIFFon 03-26-2023 BASO # 0.1 103/ul Normal 0.0-0.1 [facility] Comment on above: Performed By: #### C BC ####[facility] Evtsckpatx6[address] [place] [address]Dr. Awildanitza Navarro Basophils/100 WBC (Bld) 0.4 % Normal 0.2-2.0 [facility] Comment on above: Performed By: #### C BC ####[facility] Xvgpegjljt[address] [place], [place] [address]Dr. Awildanitza Navarro EO # 0.5 103/ul Normal 0.0-0.7 [facility] Comment on above: Performed By: #### C BC ####[facility] Duihbvheba[address] [place], [place] [address]Dr. Awildanitza Navarro Eosinophils/100 WBC (Bld) 3.5 % Normal 0.9-7.0 [facility] Comment on above: Performed By: #### C BC ####[facility] Tvfnqzzmpv[address] [place], [place] [address]Dr. Awildanitza Ramon Erythrocyte distribution width (RBC) [Ratio] 17.7 % Critically high 11.0-15.0 [facility] Comment on above: Performed By: #### C BC ####[facility] Upkmptwwsc[address] [place], [place] [address]Dr. Awildanitza Navarro Hematocrit (Bld) [Volume fraction] 42.6 % Normal 42.0-54.0 [facility] Comment on above: Performed By: #### C BC ####[facility] Rypfnbbgbp[address] [place], [place] [address]Dr. Emelina Navarro Hemoglobin (Bld) [Mass/Vol] 14.2 g/dL Normal 14.0-18.0 [facility] Comment on above: Performed By: #### C BC ####[facility] Mzhjnuvbux6850 [place] [phone]. Awildanitza Ramon IG # 0.09 10e3/ul Critically high 0.00-0.03 [facility] Comment on above: Performed By: #### C BC ####[facility] Mcwysxqzza[address] [place] [phone]. Emelina Navarro IG % 0.7 % Critically high 0.0-0.5 [facility] Comment on above: Performed By: #### C BC ####[facility] Rfyortjerw30[address] [place] [address]Dr. Emelina Navarro LYMPH # 2.3 103/ul Normal 1.2-3.8 [facility] Comment on above: Performed By: #### C BC ####[facility] Ahwfxcagsz4018 [place] [address]Dr. Emelina Navarro Lymphocytes/100 WBC (Bld) 17.3 % Critically low 20.5-60.0 [facility] Comment on above: Performed By: #### C BC ####[facility] Apvavysgff[address] [place] [address]Dr. Emelina Navarro MANUAL DIFF REQ NO Normal [facility] Comment on above: Performed By: #### C BC ####[facility] Cstottkfhw56[address] [place] [address]Dr. Emelina Navarro MCH (RBC) [Entitic mass] 29.6 pg Normal 25.9-34.0 [facility] Comment on above: Performed By: #### C BC ####[facility] Rcllainvht[address] [place] [phone]. Emelina Navarro MCHC (RBC) [Mass/Vol] 33.3 g/dL Normal 29.9-35.2 [facility] Comment on above: Performed By: #### C BC ####[facility] Kjvcsyprcz3[address] [place] [phone]. Emelina Navarro MCV (RBC) [Entitic vol] 88.9 fL Normal 80.0-94.0 [facility] Comment on above: Performed By: #### C BC ####[facility] Rjndxbdzau75[address] [place] [phone]. Emelina Navarro MONO # 1.3 103/ul Critically high 0.3-0.8 [facility] Comment on above: Performed By: #### C BC ####[facility] Twsghnikfu2454 [place] [phone]. Emelina Navarro Monocytes/100 WBC (Bld) 9.7 % Normal 1.7-12.0 [facility] Comment on above: Performed By: #### C BC ####[facility] Vnlzrwaqfi8705 [place] [phone]. Emelina Navarro NEUT # 9.2 103/ul Critically high 1.4-6.5 [facility] Comment on above: Performed By: #### C BC ####[facility] Gdszjmnvou67[address] [place] [address]Dr. Emelina Navarro Neutrophils/100 WBC (Bld) 68.4 % Normal 43.0-75.0 [facility] Comment on above: Performed By: #### C BC ####[facility] Roxutcigul[address] [place] [phone]. Emelina Navarro Platelet mean volume (Bld) [Entitic vol] 9.6 fL Normal 9.5-13.5 [facility] Comment on above: Performed By: #### C BC ####[facility] Xuhswwayer5318 [place] [phone]. Emelina Navarro PLT 271 103/ul Normal 150-450 [facility] Comment on above: Performed By: #### C BC ####[facility] Odhogoddev8951 [place] [phone]. Emelina Navarro RBC 4.79 106/ul Normal 4.70-6.10 [facility] Comment on above: Performed By: #### C BC ####[facility] Gpmnqnrgoc7169 [place] [phone]. Emelina Navarro WBC 13.4 103/ul Critically high 4.0-11.0 The [facility] Comment on above: Performed By: #### C BC ####[facility] Vontpmbefe[address] [place] [address]Dr. Emelina Navarro CRPon 03-26-2023 CRP 4.6 mg/dL Critically high <=1.0 [facility] Comment on above: Performed By: #### B MP, CRP, CMADM, BNP ####[facility] Iyvewvhfqw37[address] [place] [address]Dr. Emelina Navarro LACTATE/LACTIC ACIDon 2022 Lactate [Moles/Vol] 1.6 mmol/L Normal 0.4-2.0 [facility] Comment on above: Performed By: #### L ACT ####[facility] Ohuzmoqiis[address] [place], [place] [address]Dr. Emelina Navarro PROF CHEM 8 (BAS METB)on Anion gap [Moles/Vol] 9.6 mmol/L Normal [facility] Comment on above: Performed By: #### B MP, CRP, CMADM, BNP ####[facility] Xvqpqwifgp25[address] [place] [address]Dr. Emelina Navarro Calcium [Mass/Vol] 8.4 mg/dL Critically low 8.5-10.1 [facility] Comment on above: Performed By: #### B MP, CRP, CMADM, BNP ####[facility] Mjetmyhtxz[address] [place] [address]Dr. Emelina Navarro Chloride [Moles/Vol] 102 mmol/L Normal 98-107 [facility] Comment on above: Performed By: #### B MP, CRP, CMADM, BNP ####[facility] Sseeamcrit[address] [place] [address]Dr. Emelina Navarro CO2 [Moles/Vol] 30.9 mmol/L Normal 21.0-32.0 [facility] Comment on above: Performed By: #### B MP, CRP, CMADM, BNP ####[facility] Iptaotbryv3741 [place] [address]Dr. Emelina Navarro Creatinine [Mass/Vol] 1.73 mg/dL Critically high 0.70-1.30 [facility] Comment on above: Performed By: #### B MP, CRP, CMADM, BNP ####[facility] Fshfscyeaq27[address] [place] [address]Dr. Emelina Navarro EGFR-AF GABONESE 48 mL/min/1.73m2 Critically low >=60 [facility] Comment on above: Performed By: #### B MP, CRP, CMADM, BNP ####[facility] Ketzeevhnl[address] [place] [address]Dr. Emelina Navarro EGFR-NON AF GABONESE 39 mL/min/1.73m2 Critically low >=60 [facility] Comment on above: Performed By: #### B MP, CRP, CMADM, BNP ####[facility] Xikpiccozm[address] [place], [place] [address]Dr. Emelina Navarro Glucose [Mass/Vol] 73 mg/dL Critically low 74-106 [facility] Comment on above: Performed By: #### B MP, CRP, CMADM, BNP ####[facility] Xdfbuzcrzg[address] [place], [place] [address]Dr. Emelina Navarro Potassium [Moles/Vol] 3.5 mmol/L Normal 3.5-5.1 [facility] Comment on above: Performed By: #### B MP, CRP, CMADM, BNP ####[facility] Jongezylzr4[address] [place] [address]Dr. Emelina Navarro Sodium [Moles/Vol] 139 mmol/L Normal 136-145 [facility] Comment on above: Performed By: #### B MP, CRP, CMADM, BNP ####[facility] Aqxnpvmzjf32[address] [place] [address]Dr. Emelina Navarro Urea nitrogen [Mass/Vol] 29.0 mg/dL Critically high 7.0-18.0 [facility] Comment on above: Performed By: #### B MP, CRP, CMADM, BNP ####[facility] Kylcisczqx2957 [place] [address]Dr. Emelina Navarro Urea nitrogen/Creatinine [Mass ratio] 16.8 mg/mg Normal [facility] Comment on above: Performed By: #### B MP, CRP, CMADM, BNP ####[facility] Ofmjhfbvwe[address] [place], [place] [address]Gg. Emelina Navarro [facility] SED RATE 60 mm/hr Critically high <=20 [facility] Comment on above: Performed By: #### S EDR ####[facility] Eoxvptmnqy16[address] [place], [place] [address]If. Emelina Navarro Basic Metabolic Panelon Anion gap [Moles/Vol] 13.7 mmol/L Normal 6.0-15.0 [facility] Comment on above: Order Comment: Name Collection Type:: Clean-Voided Midstream Performed By: #### U A #### [facility] [address] [place] [address] Calcium [Mass/Vol] 9.2 mg/dL Normal 8.6-10.3 [facility] Comment on above: Order Comment: Name Collection Type:: Clean-Voided Midstream Result Comment: PERF ORMED BY: [place] [address] PATHOLOGIST [employer] SALES [employer]OCIATE RAFA BYRNE M.D. Performed By: #### U A #### [facility] [address] [place] [address] Chloride [Moles/Vol] 94 mmol/L Low 98-107 [facility] Comment on above: Order Comment: Name Collection Type:: Clean-Voided Midstream Performed By: #### U A #### [facility] [address] [place] [address] [place] CO2 [Moles/Vol] 31.1 mmol/L High 21.0-31.0 [facility] Comment on above: Order Comment: Name Collection Type:: Clean-Voided Midstream Performed By: #### U A #### [facility] [address] [place] [address] [place] Creatinine [Mass/Vol] 1.57 mg/dL High 0.70-1.30 [facility] Comment on above: Order Comment: Name Collection Type:: Clean-Voided Midstream Performed By: #### U A #### [place] [address] [place] GFR/1.73 sq M.predicted MDRD (S/P/Bld) [Vol rate/Area] 47.712 mL/min/{1.73_m2} Normal [facility] Comment on above: Order Comment: Name Collection Type:: Clean-Voided Midstream Performed By: #### U A #### [address] Glucose [Mass/Vol] 67 mg/dL Low 70-100 [facility] Comment on above: Order Comment: Name Collection Type:: Clean-Voided Midstream Result Comment: [facility] Glucose Reference Range is dependent on time and content of last meal. Glucose of more than 200 mg/dL in a nonstressed, ambulatory subject supports the diagnosis of Diabetes Mellitus. ADA recommended reference range Performed By: #### U A #### [address] Potassium [Moles/Vol] 3.8 mmol/L Normal 3.5-5.1 [facility] Comment on above: Order Comment: Name Collection Type:: Clean-Voided Midstream Performed By: #### U A #### [address] Sodium [Moles/Vol] 135 mmol/L Low 136-145 [facility] Comment on above: Order Comment: Name Collection Type:: Clean-Voided Midstream Performed By: #### U A #### [place] [address] [place] Urea nitrogen [Mass/Vol] 25 mg/dL Normal 7-25 [facility] Comment on above: Order Comment: Name Collection Type:: Clean-Voided Midstream Performed By: #### U A #### [place] [address] [place] Calcium [Mass/volume] in Ser um or PlasmaOrdered By: Yakov To on 02-21-2023 Calcium [Mass/Vol] 9.2 mg/dL 8.6-10.3 [facility] Carbon dioxide, total [Moles /volume] in Serum or PlasmaOrdered By: Yakov To on 02-21-2023 CO2 [Moles/Vol] 31.1 mmol/L 21.0-31.0 [facility] Chloride [Moles/volume] in S mary or PlasmaOrdered By: Yakov To on 02-21-2023 Chloride [Moles/Vol] 94 mmol/L 98-107 [facility] Creatinine [Mass/volume] in Serum or PlasmaOrdered By: Yakov To on 02-21-2023 Creatinine [Mass/Vol] 1.57 mg/dL 0.70-1.30 [facility] Glucose [Mass/volume] in Ser um or PlasmaOrdered By: Yakov To on 02-21-2023 Glucose [Mass/Vol] 67 mg/dL 70-100 [facility] Comment on above: ADA recommended refe rence rangeRandom Glucose Reference Range is dependent on time and content of last meal. Glucose of more than 200 mg/dL in a nonstressed, ambulatory subject supports the diagnosis of Diabetes Mellitus. No Panel InformationOrdered By: Yakov To on 02-21-2023 Estimated GFR (CKD-EPI) 47.712 mL/Min [facility] Creatinine Clearance (Chem N/A [facility] Potassium [Moles/volume] in Serum or PlasmaOrdered By: Yakov To on 02-21-2023 Potassium [Moles/Vol] 3.8 mmol/L 3.5-5.1 [facility] Serum or plasma anion gap de terminationOrdered By: Yakov To on 02-21-2023 Anion gap [Moles/Vol] 13.7 mmol/L 6.0-15.0 [facility] Sodium [Moles/volume] in Ser um or PlasmaOrdered By: Yakov To on 02-21-2023 Sodium [Moles/Vol] 135 mmol/L 136-145 [facility] Urea nitrogen [Mass/volume] in Serum or PlasmaOrdered By: Yakov To 02-21-2023 Urea nitrogen [Mass/Vol] 25 mg/dL 7-25 [facility] A1C with Estimated Average G grace 02-14-2023 Glucose [Mass/Vol] 252 mg/dL Normal [facility] Comment on above: Result Comment: PERF ORMED BY: [place] [address] PATHOLOGIST [employer] SALES ASSOCIATE RAFA BYRNE M.D. Performed By: #### U A #### [facility] [address] [place] [address] HbA1c (Bld) [Mass fraction] 10.4 % High 4.3-5.6 [facility] Comment on above: Result Comment: Incr eased risk for diabetes: 5.7 - 6.4 diabetes: >6.4 glycemic control for adults with diabetes: <7.0 Performed By: #### U A #### [facility] [address] [place] [address] Basic Metabolic Panelon 01-18 Anion gap [Moles/Vol] 13.4 mmol/L Normal 6.0-15.0 [facility] Comment on above: Performed By: #### U A #### [facility] [address] [place] [address] [place] Calcium [Mass/Vol] 9.1 mg/dL Normal 8.6-10.3 [facility] Comment on above: Performed By: #### U A #### [facility] [address] [place] [address] [place] Chloride [Moles/Vol] 95 mmol/L Low 98-107 [facility] Comment on above: Performed By: #### U A #### [facility] [address] [place] [address] [place] CO2 [Moles/Vol] 30.7 mmol/L Normal 21.0-31.0 [facility] Comment on above: Performed By: #### U A #### [address] Creatinine [Mass/Vol] 1.65 mg/dL High 0.70-1.30 [facility] Comment on above: Performed By: #### U A #### [facility] [address] [place] [address] [place] Creatinine Clr Calc Pharmacy 49.22 [facility] Comment on above: Performed By: #### U A #### [facility] [address] [place] [address] [place] GFR/1.73 sq M.predicted MDRD (S/P/Bld) [Vol rate/Area] 44.950 mL/min/{1.73_m2} [facility] Comment on above: Performed By: #### U A #### [address] Glucose [Mass/Vol] 193 mg/dL Significant change up 70-100 [facility] Comment on above: Result Comment: [facility] Glucose Reference Range is dependent on time and content of last meal. Glucose of more than 200 mg/dL in a nonstressed, ambulatory subject supports the diagnosis of Diabetes Mellitus. ADA recommended reference range Performed By: #### U A #### [address] Potassium [Moles/Vol] 3.1 mmol/L Low 3.5-5.1 [facility] Comment on above: Performed By: #### U A #### [address] Sodium [Moles/Vol] 136 mmol/L Significant change down 136-145 [facility] Comment on above: Performed By: #### U A #### [place] [address] [place] Urea nitrogen [Mass/Vol] 43 mg/dL High 7-25 [facility] Comment on above: Performed By: #### U A #### [place] [address] [place] Calcium [Mass/volume] in Ser um or PlasmaOrdered By: Yakov To on 02-14-2023 Calcium [Mass/Vol] 9.1 mg/dL 8.6-10.3 [facility] Carbon dioxide, total [Moles /volume] in Serum or PlasmaOrdered By: Yakov To on 02-14-2023 CO2 [Moles/Vol] 30.7 mmol/L 21.0-31.0 [facility] Chloride [Moles/volume] in S mary or PlasmaOrdered By: Yakov To on 02-14-2023 Chloride [Moles/Vol] 95 mmol/L 98-107 [facility] Creatinine [Mass/volume] in Serum or PlasmaOrdered By: Yakov To on 02-14-2023 Creatinine [Mass/Vol] 1.65 mg/dL 0.70-1.30 [facility] Glucose Glucometer (BldC) [M ass/Vol]Ordered By: Yakov To on 02-14-2023 Glucose [Mass/Vol] 197 mg/dL [facility] Comment on above: Random Glucose Refer ence Range is dependent on time and content of last meal. Glucose of more than 200 mg/dL in a nonstressed, ambulatory subject supports the diagnosis of Diabetes Mellitus. Glucose Poct Glucometerson 0 02-14-2023 Glucose [Mass/Vol] 197 mg/dL Normal [facility] Comment on above: Result Comment: [facility] Glucose Reference Range is dependent on time and content of last meal. Glucose of more than 200 mg/dL in a nonstressed, ambulatory subject supports the diagnosis of Diabetes Mellitus. PERFORMED BY: [place] [address] PATHOLOGIST SECUR[employer] SALES ASSOCIATE RAFA BYRNE M.D. Performed By: #### M G #### [facility] [address] [place] [address] Glucose [Mass/Vol] 350 mg/dL Normal [facility] Comment on above: Result Comment: [facility] Glucose Reference Range is dependent on time and content of last meal. Glucose of more than 200 mg/dL in a nonstressed, ambulatory subject supports the diagnosis of Diabetes Mellitus. PERFORMED BY: [place] [address] PATHOLOGIST SECURITIES SALES ASSOCIATE RAFA BYRNE M.D. Performed By: #### U A #### [facility] [address] [place] [address] Glucose [Mass/Vol] 216 mg/dL Normal [facility] Comment on above: Result Comment: [place] om Glucose Reference Range is dependent on time and content of last meal. Glucose of more than 200 mg/dL in a nonstressed, ambulatory subject supports the diagnosis of Diabetes Mellitus. PERFORMED BY: [facility] [place] [address] PATHOLOGIST SECURITIES SALES ASSOCIATE RAFA BYRNE M.D. Performed By: #### G ALVARADO #### Point of Care testing , Glucose [Mass/volume] in Ser um or PlasmaOrdered By: Yakov To on 02-14-2023 Glucose [Mass/Vol] 193 mg/dL 70-100 [facility] Comment on above: Delta: 400 on -9ADA recommended reference rangeRandom Glucose Reference Range is dependent on time and content of last meal. Glucose of more than 200 mg/dL in a nonstressed, ambulatory subject supports the diagnosis of Diabetes Mellitus. Glucose mean value [Mass/vol ume] in Blood Estimated from glycated hemoglobinOrdered By: Yakov To on 02-14-2023 Average glucose Estimated from glycated hemoglobin (Bld) [Mass/Vol] 252 mg/dL [facility] Hemoglobin A1c percentageOrd ered By: Yakov To on 02-14-2023 HbA1c (Bld) [Mass fraction] 10.4 % 4.3-5.6 [facility] Comment on above: Increased risk for d iabetes: 5.7 - 6.4diabetes: >6.4glycemic control for adults with diabetes: <7.0 Laboratory - Chemistry and C hemistry - challengeOrdered By: Yakov To on 02-14-2023 GFR/1.73 sq M.predicted MDRD (S/P/Bld) [Vol rate/Area] 44.950 mL/min/{1.73_m2} [facility] Laboratory - CoagulationOrde red By: Yakov To on 02-14-2023 PT Coag (PPP) [Time] 25.6 s 9.0-12.9 [facility] Magnesiumon 02-14-2023 Magnesium [Mass/Vol] 2.4 mg/dL Normal 1.9-2.7 [facility] Comment on above: Result Comment: PERF ORMED BY: [facility] [address] [place] [address] PATHOLOGIST SECURITIES SALES ASSOCIATE RAFA BYRNE M.D. Performed By: #### U A #### [facility] [address] [place] [address] [facility] Magnesium [Mass/volume] in S mary or PlasmaOrdered By: Yakov To on 02-14-2023 Magnesium [Mass/Vol] 2.4 mg/dL 1.9-2.7 [facility] No Panel InformationOrdered By: Yakov To on 02-14-2023 Pharmacy Creatinine Clearance (Chem 49.22 [facility] Platelet poor plasma interna tional normalized ratio (INR) by coagulation assay (relatOrdered By: Yakov To on 02-14-2023 INR Coag (PPP) [Relative time] 2.2 {INR} [facility] Comment on above: INR Therapeutic Rang e A) Pre- and Peroperative OAT started two weeks before surgery. NOT HIP SURGERY: 1.5 - 2.5 HIP SURGERY: 2 - 3B) Primary and secondary prevention of venous THROMBOSIS: 2 - 3C) Active venous thrombosis, pulmonary embolismand prevention of recurrent venous thrombosis: 2 - 3D) Prevention of arterial thromboembolismincluding patients with mechanical heart valves: 3 - 4.5 Potassiumon 02-14-2023 Potassium [Moles/Vol] 3.7 mmol/L Normal 3.5-5.1 [facility] Comment on above: Result Comment: PERF ORMED BY: [facility] [address] [place] [address] PATHOLOGIST SECURITIES SALES ASSOCIATE RAFA BYRNE M.D. Performed By: #### K #### [facility] [address] [place] [address] [facility] Potassium [Moles/Vol] 3.4 mmol/L Low 3.5-5.1 [facility] Comment on above: Result Comment: PERF ORMED BY: [address] [place] [address] PATHOLOGIST SECURITIES SALES ASSOCIATE RAFA BYRNE M.D. Performed By: #### K #### [facility] [address] Potassium [Moles/volume] in Serum or PlasmaOrdered By: Yakov To on 02-14-2023 Potassium [Moles/Vol] 3.7 mmol/L 3.5-5.1 [facility] Prothrombin Time INRon 02-14 INR Coag (PPP) [Relative time] 2.2 {INR} Normal [facility] Comment on above: Result Comment: INR Therapeutic Range A) Pre- and Peroperative OAT started two weeks before surgery. NOT HIP SURGERY: 1.5 - 2.5 HIP SURGERY: 2 - 3 B) Primary and secondary prevention of venous THROMBOSIS: 2 - 3 C) Active venous thrombosis, pulmonary embolism and prevention of recurrent venous thrombosis: 2 - 3 D) Prevention of arterial thromboembolism including patients with mechanical heart valves: 3 - 4.5 PERFORMED BY: [place] [address] PATHOLOGIST SECURITIES SALES ASSOCIATE RAFA BYRNE M.D. Performed By: #### M G #### [facility] [address] PT Coag (PPP) [Time] 25.6 s High 9.0-12.9 [facility] Comment on above: Performed By: #### M G #### [facility] [address] [place] [address] Serum or plasma anion gap de terminationOrdered By: Yakov To on 02-14-2023 Anion gap [Moles/Vol] 13.4 mmol/L 6.0-15.0 [facility] Sodium [Moles/volume] in Ser um or PlasmaOrdered By: Yakov To on 02-14-2023 Sodium [Moles/Vol] 136 mmol/L 136-145 [facility] Comment on above: Delta: 129 on -1648 Urea nitrogen [Mass/volume] in Serum or PlasmaOrdered By: Yakov To on 02-14-2023 Urea nitrogen [Mass/Vol] 43 mg/dL 7-25 [facility] Activated partial thrombopla stin time (aPTT) in platelet poor plasma by coagulation aOrdered By: Angela Aden on 02-13-2023 aPTT Coag (PPP) [Time] 38.3 s 25.1-36.5 [facility] Alanine aminotransferase [En zymatic activity/volume] in Serum or PlasmaOrdered By: Angela Aden on 02-13-2023 ALT [Catalytic activity/Vol] 21 U/L 7-52 [facility] Albumin [Mass/volume] in Ser um or Plasma by Bromocresol green (BCG) dye binding methoOrdered By: Angela Aden on 02-13-2023 Albumin BCG dye [Mass/Vol] 4.3 g/dL 3.5-5.7 [facility] Alkaline phosphatase [Enzyma tic activity/volume] in Serum or PlasmaOrdered By: Angela Aden on 02-13-2023 ALP [Catalytic activity/Vol] 98 U/L 34-104 [facility] Arterial Blood Gason 023 ABG Base Excess 5.2 mmol/L High -3.0-3.0 [facility] Comment on above: Performed By: #### M G #### [facility] [address] ABG Frac Inspired O2 21 % Normal [facility] Comment on above: Performed By: #### M G #### [facility] [address] ABG Oxygen Content 9.0 mmol/L Normal 6.6-9.7 [facility] Comment on above: Performed By: #### M G #### [facility] [address] ABG Oxygen Saturation 83.4 % Low 95.0-100.0 [facility] Comment on above: Performed By: #### M G #### [facility] [address] ABG PCO2 49.4 mm[Hg] High 35.0-45.0 [facility] Comment on above: Performed By: #### M G #### [facility] [address] [place] [address] ABG PH 7.42 Normal 7.35-7.45 [facility] Comment on above: Performed By: #### M G #### [address] ABG PO2 48.2 mm[Hg] Off scale low 80.0-100.0 [facility] Comment on above: Performed By: #### M G #### [address] CO2 [Moles/Vol] 32.7 mmol/L High 23.0-27.0 [facility] Comment on above: Performed By: #### M G #### [address] HCO3 (Bld) [Moles/Vol] 31.2 mmol/L High 23.0-29.0 [facility] Comment on above: Performed By: #### M G #### [address] Respiratory Critical Normal [facility] Comment on above: Result Comment: Crit ical Value called on: 02/13/2023 at 17:04 PERFORMED BY: [place] [address] PATHOLOGIST SECURITIES SALES ASSOCIATE RAFA BYRNE M.D. Performed By: #### M G #### [address] VBG Draw Site Venous Normal [facility] Comment on above: Performed By: #### M G #### [address] Aspartate aminotransferase [ Enzymatic activity/volume] in Serum or PlasmaOrdered By: Angela Aden on 02-13-2023 AST [Catalytic activity/Vol] 32 U/L 13-39 [facility] Basophils Auto (Bld) [#/Vol] Ordered By: Angela Aden on 02-13-2023 Basophils (Bld) [#/Vol] 0.1 10*3/uL 0.0-0.2 [facility] Basophils/100 WBC Auto (Bld) Ordered By: Angela Aden on 02-13-2023 Basophils/100 WBC (Bld) 0.6 % . [facility] Beta Hydroxybuterateon 02-13 Beta Hydroxybuterate 0.10 mmol/L Normal 0.02-0.27 [facility] Comment on above: Result Comment: PERF ORMED BY: [place] [address] PATHOLOGIST SECURITIES SALES ASSOCIATE RAFA BYRNE M.D. Performed By: #### M G #### [address] Beta hydroxybutyrate [Moles/ volume] in Serum or PlasmaOrdered By: Angela Aden on 02-13-2023 Beta hydroxybutyrate [Moles/Vol] 0.10 mmol/L 0.02-0.27 [facility] Bilirubin Test strip Ql (U)O rdered By: Angela Aden on 02-13-2023 Bilirubin Ql (U) Negative Negative [facility] Bilirubin.total [Mass/volume ] in Serum or PlasmaOrdered By: Angela Aden on 02-13-2023 Bilirubin [Mass/Vol] 1.3 mg/dL 0.3-1.0 [facility] Comment on above: Samples from patient s who have taken Naproxen have shown spurious elevation in Total Bilirubin levels. A metabolite of Naproxen, O-desmethylnaproxen, has been shown to interfere with the Jesi-Ananya method for measuring Total Bilirubin. CT head/brain wo conon 02-13 CT head/brain wo [facility] [place] [address] [place] [address] CT Scan Report Signed Patient: Adwoa Porter MR#: [id number] 7 : 1955 Acct:[id number] Age/Sex: 67 / M ADM Date: 02/13/23 Loc: ER Room: Type: [facility] ER Attending Dr: Copies to: Angela Aden APRN Ordering Provider: Angela Aden APRN Date of Service: 02/13/23 CT/CT head/brain wo con: falls CT BRAIN WITHOUT CONTRAST: CLINICAL HISTORY: Hyperglycemia. Multiple falls. COMPARISON: None TECHNIQUE: Contiguous axial unenhanced images were obtained through the brain. This CT exam was performed using one or more following dose reduction techniques: Automated exposure control, adjustment of the mA and/or kV according to patient size, or use of iterative reconstruction technique. FINDINGS: There is generalized atrophy. The ventricles are within normal limits for size and position. A cavum septum pellucidum is seen. Microvascular changes are noted. 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 There are no additional areas of abnormal attenuation. There is no hemorrhage, mass effect or extra-axial collections. The calvarium is intact. The imaged paranasal sinuses are clear. There is vertebrobasilar artery and carotid siphon plaque. CT/CT head/brain wo con IMPRESSION: ATROPHY AND CHRONIC ISCHEMIC CHANGES. NO ACUTE INTRACRANIAL TRAUMA. Impression dictated by: Archana Perez M.D.02/13/2023 5:28 PM Dictation Location: [place] [address] Transcribed By: [facility] 02/13/231727 Dictated By: Archana Perez MD 02/13/231722 Signed By: 02/13/231727 Normal [facility] Calcium [Mass/volume] in Ser um or PlasmaOrdered By: Angela Aden on 02-13-2023 Calcium [Mass/Vol] 9.3 mg/dL 8.6-10.3 [facility] Carbon dioxide, total [Moles /volume] in Serum or PlasmaOrdered By: Angela Aden on 02-13-2023 CO2 [Moles/Vol] 31.6 mmol/L 21.0-31.0 [facility] Chloride [Moles/volume] in S mary or PlasmaOrdered By: Angela Aden on 02-13-2023 Chloride [Moles/Vol] 85 mmol/L 98-107 [facility] Color Auto (U)Ordered By: Miguel Aden on 02-13-2023 Color (U) Yellow Yellow [facility] Complete Blood Count Auto Di ffon 02-13-2023 Basophils (Bld) [#/Vol] 0.1 10*3/uL Normal 0.0-0.2 [facility] Comment on above: Result Comment: PERF ORMED BY: [place] [address] PATHOLOGIST SECURITIES SALES ASSOCIATE RAFA BYRNE M.D. Performed By: #### M G #### [address] Basophils/100 WBC (Bld) 0.6 % Normal . [facility] Comment on above: Performed By: #### M G #### [address] Eosinophils (Bld) [#/Vol] 0.4 10*3/uL Normal 0.0-0.45 [facility] Comment on above: Performed By: #### M G #### [address] Eosinophils/100 WBC (Bld) 2.9 % Normal . [facility] Comment on above: Performed By: #### M G #### [address] Erythrocyte distribution width (RBC) [Ratio] 17.9 % High 12.0-14.8 [facility] Comment on above: Performed By: #### M G #### [address] Hematocrit (Bld) [Volume fraction] 48.8 % Normal 38.8-50.0 [facility] Comment on above: Performed By: #### M G #### [address] Hemoglobin (Bld) [Mass/Vol] 16.6 g/dL Normal 13.0-17.0 [facility] Comment on above: Performed By: #### M G #### [address] Lymphocytes (Bld) [#/Vol] 2.1 10*3/uL Normal 1.00-4.8 [facility] Comment on above: Performed By: #### M G #### [address] Lymphocytes/100 WBC (Bld) 17.7 % Normal . [facility] Comment on above: Performed By: #### M G #### [address] MCH (RBC) [Entitic mass] 29.0 pg Normal 27.5-35.2 [facility] Comment on above: Performed By: #### M G #### [address] MCV (RBC) [Entitic vol] 85.2 fL Normal 83.5-101 [facility] Comment on above: Performed By: #### M G #### [address] Mean Corpuscular HGB Conc 34.0 g/dL Normal 32.5-35.6 [facility] Comment on above: Performed By: #### M G #### [address] Monocytes (Bld) [#/Vol] 1.0 10*3/uL High 0.0-0.8 [facility] Comment on above: Performed By: #### M G #### [address] Monocytes/100 WBC (Bld) 19.79 % Normal 0.00-20.00 [facility] Comment on above: Performed By: #### M G #### [address] Monocytes/100 WBC (Bld) 8.0 % Normal . [facility] Comment on above: Performed By: #### M G #### [address] Neutrophils (Bld) [#/Vol] 8.5 10*3/uL High 1.8-7.7 [facility] Comment on above: Performed By: #### M G #### [address] Neutrophils/100 WBC (Bld) 70.8 % Normal . [facility] Comment on above: Performed By: #### M G #### [facility] [address] NRBC% 0.1 /100{WBC} Normal 0-0.5 [facility] Comment on above: Performed By: #### M G #### [facility] [address] Platelet mean volume (Bld) [Entitic vol] 8.6 fL Normal 6.6-10.1 [facility] Comment on above: Performed By: #### M G #### [facility] [address] Platelets (Bld) [#/Vol] 218 10*3/uL Normal 150-450 [facility] Comment on above: Performed By: #### M G #### [address] RBC (Bld) [#/Vol] 5.72 10*6/uL High 3.90-5.60 [facility] Comment on above: Performed By: #### M G #### [address] WBC (Bld) [#/Vol] 12.0 10*3/uL High 4.1-10.5 [facility] Comment on above: Performed By: #### M G #### [facility] [address] [place] [address] Comprehensive Metabolic Pane bola 02-13-2023 Albumin [Mass/Vol] 4.3 g/dL Normal 3.5-5.7 [facility] Comment on above: Performed By: #### M G #### [address] Albumin/Globulin [Mass ratio] 1.2 {ratio} Normal [facility] Comment on above: Performed By: #### M G #### [address] ALP [Catalytic activity/Vol] 98 U/L Normal 34-104 [facility] Comment on above: Performed By: #### M G #### [facility] [address] [place] [id number] [facility] ALT [Catalytic activity/Vol] 21 U/L Normal 7-52 [facility] Comment on above: Performed By: #### M G #### [address] Anion gap [Moles/Vol] 15.3 mmol/L High 6.0-15.0 [facility] Comment on above: Performed By: #### M G #### [address] AST [Catalytic activity/Vol] 32 U/L Normal 13-39 [facility] Comment on above: Performed By: #### M G #### [address] Bilirubin [Mass/Vol] 1.3 mg/dL High 0.3-1.0 [facility] Comment on above: Result Comment: Samp les from patients who have taken Naproxen have shown spurious elevation in Total Bilirubin levels. A metabolite of Naproxen, O-desmethylnaproxen, has been shown to interfere with the Jendrtaiik-Grof method for measuring Total Bilirubin. Performed By: #### M G #### [address] Calcium [Mass/Vol] 9.3 mg/dL Normal 8.6-10.3 [facility] Comment on above: Performed By: #### M G #### [place] [id number] [place] Chloride [Moles/Vol] 85 mmol/L Low 98-107 [facility] Comment on above: Performed By: #### M G #### [place] [id number] [place] CO2 [Moles/Vol] 31.6 mmol/L High 21.0-31.0 [facility] Comment on above: Performed By: #### M G #### [place] [address] [place] Creatinine [Mass/Vol] 2.06 mg/dL High 0.70-1.30 [facility] Comment on above: Performed By: #### M G #### [address] Creatinine Clr Calc Pharmacy 39.26 [facility] Comment on above: Performed By: #### M G #### [place] [address] [place] GFR/1.73 sq M.predicted MDRD (S/P/Bld) [Vol rate/Area] 34.441 mL/min/{1.73_m2} [facility] Comment on above: Performed By: #### M G #### [address] Globulin (S) [Mass/Vol] 3.6 g/dL [facility] Comment on above: Performed By: #### M G #### [address] Glucose [Mass/Vol] 400 mg/dL High 70-100 [facility] Comment on above: Result Comment: [facility] Glucose Reference Range is dependent on time and content of last meal. Glucose of more than 200 mg/dL in a nonstressed, ambulatory subject supports the diagnosis of Diabetes Mellitus. ADA recommended reference range Performed By: #### M G #### [address] Potassium [Moles/Vol] 2.9 mmol/L Off scale low 3.5-5.1 [facility] Comment on above: Result Comment: Hemo lysis is present at a level that could interfere with the result. Performed By: #### M G #### [address] Protein [Mass/Vol] 7.9 g/dL Normal 6.4-8.9 [facility] Comment on above: Performed By: #### M G #### [address] Sodium [Moles/Vol] 129 mmol/L Low 136-145 [facility] Comment on above: Performed By: #### M G #### [facility] [address] [place] [address] [place] Urea nitrogen [Mass/Vol] 53 mg/dL High 7-25 [facility] Comment on above: Performed By: #### M G #### [facility] [address] [place] [address] [place] Creatinine [Mass/volume] in Serum or PlasmaOrdered By: Angela Aden on 02-13-2023 Creatinine [Mass/Vol] 2.06 mg/dL 0.70-1.30 [facility] ECG 12 lead ECGon 02-13-2023 ECG 12 lead ECG [facility] [place] [address] [place] [address] Electrocardiograph Report Signed Patient: Adwoa Porter MR#: [id number] 7 : 1955 Acct:[id number] Age/Sex: 67 / M ADM Date: 02/13/23 Loc: Room: [address] [place] [address] Type: ADM IN Attending Dr: Yakov To DO Ordering Provider: Angela Aden APRN Date of Service: 02/13/23 ECG/ECG 12 lead ECG: Recheck/Abnormal Lab/Rx Copies to: Test Reason : Blood Pressure : / mmHG Vent. Rate : 091 BPM Atrial Rate : 101 BPM P-R Int : 000 ms QRS Dur : 190 ms QT Int : 446 ms P-R-T Axes : 000 -87 092 degrees QTc Int : 548 ms Ventricular-paced rhythm with frequent premature ventricular complexes Right bundle branch block Left anterior fascicular block Bifascicular block Confirmed by Alejandro DUNCAN DO ([id number]) on 02/13/2023 10:10:19 PM Referred By: Electronically Signed By:Alejandro DUNCAN DO Transcribed By: MUS Signed By Alejandro Duncan DO 0 02/13/23 2210 Normal [facility] Eosinophils Auto (Bld) [#/Vo l]Ordered By: Angela Aden on 02-13-2023 Eosinophils (Bld) [#/Vol] 0.4 10*3/uL 0.0-0.45 [facility] Eosinophils/100 WBC Auto (Bl d)Ordered By: Angela Aden on 02-13-2023 Eosinophils/100 WBC (Bld) 2.9 % . [facility] Erythrocyte distribution wid th Auto (RBC) [Ratio]Ordered By: Angela Aden on 02-13-2023 Erythrocyte distribution width (RBC) [Ratio] 17.9 % 12.0-14.8 [facility] Globulin Calc (S) [Mass/Vol] Ordered By: Angela Aden on 02-13-2023 Globulin (S) [Mass/Vol] 3.6 g/dL [facility] Glucose Glucometer (BldC) [M ass/Vol]Ordered By: Yakov To on 02-13-2023 Glucose [Mass/Vol] 216 mg/dL [facility] Comment on above: Random Glucose Refer ence Range is dependent on time and content of last meal. Glucose of more than 200 mg/dL in a nonstressed, ambulatory subject supports the diagnosis of Diabetes Mellitus. Glucose Poct Glucometerson 0 02-13-2023 Glucose [Mass/Vol] 76 mg/dL Normal [facility] Comment on above: Result Comment: [facility] Glucose Reference Range is dependent on time and content of last meal. Glucose of more than 200 mg/dL in a nonstressed, ambulatory subject supports the diagnosis of Diabetes Mellitus. PERFORMED BY: [address] [place] [address] PATHOLOGIST SECURITIES SALES ASSOCIATE RAFA BYRNE M.D. Performed By: #### G LULS #### Point of Care testing , Commemt1 Normal [facility] Comment on above: Result Comment: Glu2 : WILL NOTIFY DR/RN PERFORMED BY: [facility] [address] [place] [address] PATHOLOGIST SECURITIES SALES ASSOCIATE RAFA BYRNE M.D. Performed By: #### G LULS #### Point of Care testing , Glucose [Mass/Vol] 560 mg/dL Off scale high [facility] Comment on above: Result Comment: [place] [facility] Glucose Reference Range is dependent on time and content of last meal. Glucose of more than 200 mg/dL in a nonstressed, ambulatory subject supports the diagnosis of Diabetes Mellitus. Performed By: #### G ALVARADO #### Point of Care testing , Glucose [Mass/volume] in Ser um or PlasmaOrdered By: Angela Aden on 02-13-2023 Glucose [Mass/Vol] 400 mg/dL 70-100 [facility] Comment on above: ADA recommended refe rence rangeRandom Glucose Reference Range is dependent on time and content of last meal. Glucose of more than 200 mg/dL in a nonstressed, ambulatory subject supports the diagnosis of Diabetes Mellitus. Hematocrit Auto (Bld) [Volum e fraction]Ordered By: Angela Aden on 02-13-2023 Hematocrit (Bld) [Volume fraction] 48.8 % 38.8-50.0 [facility] Hemoglobin [Mass/volume] in BloodOrdered By: Angela Aden on 02-13-2023 Hemoglobin (Bld) [Mass/Vol] 16.6 g/dL 13.0-17.0 [facility] Ketones Auto test strip (U) [Mass/Vol]Ordered By: Angela Aden on 02-13-2023 Ketones (U) [Mass/Vol] Negative Negative [facility] Laboratory - Chemistry and C hemistry - challengeOrdered By: Angela Aden on 02-13-2023 CO2 [Moles/Vol] 32.7 mmol/L 23.0-27.0 [facility] HCO3 (Bld) [Moles/Vol] 31.2 mmol/L 23.0-29.0 [facility] GFR/1.73 sq M.predicted MDRD (S/P/Bld) [Vol rate/Area] 34.441 mL/min/{1.73_m2} [facility] Laboratory - CoagulationOrde red By: Angela Aden on 02-13-2023 PT Coag (PPP) [Time] 26.1 s 9.0-12.9 [facility] Leukocytes [#/volume] correc morris for nucleated erythrocytes in Blood by Automated counOrdered By: Angela Aden on 02-13-2023 WBC corrected for nucl RBC Auto (Bld) [#/Vol] 12.0 10*3/uL 4.1-10.5 [facility] Lymphocytes Auto (Bld) [#/Vo l]Ordered By: Angela Aden on 02-13-2023 Lymphocytes (Bld) [#/Vol] 2.1 10*3/uL 1.00-4.8 [facility] Lymphocytes/100 WBC Auto (Bl d)Ordered By: Angela Aden on 02-13-2023 Lymphocytes/100 WBC (Bld) 17.7 % . [facility] MCH Auto (RBC) [Entitic mass ]Ordered By: Angela Aden on 02-13-2023 MCH (RBC) [Entitic mass] 29.0 pg 27.5-35.2 [facility] MCHC Auto (RBC) [Mass/Vol]Or dered By: Angela Aden on 02-13-2023 MCHC (RBC) [Mass/Vol] 34.0 g/dL 32.5-35.6 [facility] MCV Auto (RBC) [Entitic vol] Ordered By: Angela Aden on 02-13-2023 MCV (RBC) [Entitic vol] 85.2 fL 83.5-101 [facility] Magnesiumon 02-13-2023 Magnesium [Mass/Vol] 2.5 mg/dL Normal 1.9-2.7 [facility] Comment on above: Order Comment: Comme nt add on if possible Result Comment: PERF ORMED BY: [place] [address] PATHOLOGIST [employer] SALES ASSOCIATE RAFA BYRNE M.D. Performed By: #### M G #### [address] Magnesium [Mass/volume] in S mary or PlasmaOrdered By: Yakov To on 02-13-2023 Magnesium [Mass/Vol] 2.5 mg/dL 1.9-2.7 [facility] Monocyte distribution width [Entitic volume] in Blood by AutomatedOrdered By: Angela Aden on 02-13-2023 Monocyte distribution width Auto (Bld) [Entitic vol] 19.79 % 0.00-20.00 [facility] Monocytes Auto (Bld) [#/Vol] Ordered By: Angela Aden on 02-13-2023 Monocytes (Bld) [#/Vol] 1.0 10*3/uL 0.0-0.8 [facility] Monocytes/100 WBC Auto (Bld) Ordered By: Angela Aden on 02-13-2023 Monocytes/100 WBC (Bld) 8.0 % . [facility] Neutrophils Auto (Bld) [#/Vo l]Ordered By: Angela Aden on 02-13-2023 Neutrophils (Bld) [#/Vol] 8.5 10*3/uL 1.8-7.7 [facility] Neutrophils/100 WBC Auto (Bl d)Ordered By: Angela Aden on 02-13-2023 Neutrophils/100 WBC (Bld) 70.8 % . [facility] Nitrite Test strip Ql (U)Ord ered By: Angela Aden on 02-13-2023 Nitrite Ql (U) Negative Negative [facility] No Panel InformationOrdered By: Angela Aden on 02-13-2023 Arterial Blood Base Excess 5.2 mmol/L -3.0-3.0 [facility] Arterial Blood Oxygen Content 9.0 mmol/L 6.6-9.7 [facility] Arterial Blood Oxygen Saturation 83.4 % 95.0-100.0 [facility] Arterial Blood Partial Pressure CO2 49.4 mm[Hg] 35.0-45.0 [facility] Arterial Blood Partial Pressure O2 48.2 mm[Hg] 80.0-100.0 [facility] Arterial Blood pH 7.42 7.35-7.45 [facility] Blood Gas Critical Value See comment [facility] Comment on above: Critical Value rdz d on: 02/13/2023 at 17:04 Blood Gas Sample Site Venous [facility] FiO2 21 % [facility] Creatinine Clearance (Chem 39.26 [facility] Bedside Glucose Comment See comment [facility] Comment on above: Glu2: WILL NOTIFY DR /RN Nucleated erythrocytes [Pres ence] in Blood by Automated countOrdered By: Angela Aden on 02-13-2023 Nucleated RBC Auto Ql (Bld) 0.1 /100{WBC} 0-0.5 [facility] Partial Thromboplastin Timeo n 02-13-2023 aPTT Coag (Bld) [Time] 38.3 s High 25.1-36.5 [facility] Comment on above: Result Comment: PERF ORMED BY: [place] [address] PATHOLOGIST SECURITIES SALES ASSOCIATE RAFA BYRNE M.D. Performed By: #### U A #### [address] Platelet mean volume Auto (B ld) [Entitic vol]Ordered By: Angela Aden on 02-13-2023 Platelet mean volume (Bld) [Entitic vol] 8.6 fL 6.6-10.1 [facility] Platelet poor plasma interna tional normalized ratio (INR) by coagulation assay (relatOrdered By: Angela Aden on 02-13-2023 INR Coag (PPP) [Relative time] 2.3 {INR} [facility] Comment on above: INR Therapeutic Rang e A) Pre- and Peroperative OAT started two weeks before surgery. NOT HIP SURGERY: 1.5 - 2.5 HIP SURGERY: 2 - 3B) Primary and secondary prevention of venous THROMBOSIS: 2 - 3C) Active venous thrombosis, pulmonary embolismand prevention of recurrent venous thrombosis: 2 - 3D) Prevention of arterial thromboembolismincluding patients with mechanical heart valves: 3 - 4.5 Platelets Auto (Bld) [#/Vol] Ordered By: Angela Aden on 02-13-2023 Platelets (Bld) [#/Vol] 218 10*3/uL 150-450 [facility] Potassium [Moles/volume] in Serum or PlasmaOrdered By: Angela Aden on 02-13-2023 Potassium [Moles/Vol] 2.9 mmol/L 3.5-5.1 [facility] Comment on above: Hemolysis is present at a level that could interfere with the result. Protein Auto test strip (U) [Mass/Vol]Ordered By: Angela Aden on 02-13-2023 Protein (U) [Mass/Vol] Negative Negative [facility] Protein [Mass/volume] in Ser um or PlasmaOrdered By: Angela Aden on 02-13-2023 Protein [Mass/Vol] 7.9 g/dL 6.4-8.9 [facility] Prothrombin Time INRon 02-13 INR Coag (PPP) [Relative time] 2.3 {INR} Normal [facility] Comment on above: Result Comment: INR Therapeutic Range A) Pre- and Peroperative OAT started two weeks before surgery. NOT HIP SURGERY: 1.5 - 2.5 HIP SURGERY: 2 - 3 B) Primary and secondary prevention of venous THROMBOSIS: 2 - 3 C) Active venous thrombosis, pulmonary embolism and prevention of recurrent venous thrombosis: 2 - 3 D) Prevention of arterial thromboembolism including patients with mechanical heart valves: 3 - 4.5 Performed By: #### M G #### [facility] [address] PT Coag (PPP) [Time] 26.1 s High 9.0-12.9 [facility] Comment on above: Performed By: #### M G #### [facility] [address] RBC Auto (Bld) [#/Vol]Ordere d By: Angela Aden on 02-13-2023 RBC (Bld) [#/Vol] 5.72 10*6/uL 3.90-5.60 [facility] Serum or plasma albumin/glob ulin mass ratioOrdered By: Angela Aden on 02-13-2023 Albumin/Globulin [Mass ratio] 1.2 {ratio} [facility] Serum or plasma anion gap de terminationOrdered By: Angela Aden on 02-13-2023 Anion gap [Moles/Vol] 15.3 mmol/L 6.0-15.0 [facility] Sodium [Moles/volume] in Ser um or PlasmaOrdered By: Angela Aden on 02-13-2023 Sodium [Moles/Vol] 129 mmol/L 136-145 [facility] Specific gravity Auto test s trip (U) [Rel density]Ordered By: Angela Aden on 02-13-2023 Specific gravity (U) [Rel density] 1.018 1.001-1.03 0 [facility] Troponin I High Sensitivityo n 02-13-2023 Troponin I High Sensitivity 69.4 pg/mL Off scale high 0.0-20.0 [facility] Comment on above: Result Comment: Crit ical Result : Called to and read back by: PROMISE VIEIRA at: 02/13/2023 18:35:16 by:[id number] PERFORMED BY: [place] [address] PATHOLOGIST SEC[employer] SALES ASSOCIATE RAFA BYRNE M.D. Performed By: #### U A #### [facility] [address] [place] [address] Troponin I.cardiac [Mass/vol ume] in Serum or Plasma by Detection limit <= 0.01 ng/Ordered By: Angela Aden on 02-13-2023 Troponin I.cardiac DL <= 0.01 ng/mL [Mass/Vol] 69.4 pg/mL 0.0-20.0 [facility] Comment on above: Critical Result : Ca lled to and read back by: PROMISE VIEIRA at: 02/13/2023 18:35:16 by:[id number] Urea nitrogen [Mass/volume] in Serum or PlasmaOrdered By: Angela Aden on 02-13-2023 Urea nitrogen [Mass/Vol] 53 mg/dL 7 [facility] Urinalysison 02-13-2023 Appearance (U) Clear Normal Clear [facility] Comment on above: Order Comment: Name Collection Type:: Clean-Voided Midstream Performed By: #### U A #### [facility] [address] [place] [address] [place] Bilirubin,Urine Negative Normal Negative [facility] Comment on above: Order Comment: Name Collection Type:: Clean-Voided Midstream Performed By: #### U A #### [facility] [address] [place] [address] [place] Color (U) Yellow Normal Yellow [facility] Comment on above: Order Comment: Name Collection Type:: Clean-Voided Midstream Performed By: #### U A #### [facility] [address] [place] [address] Glucose Ql (U) >=1000 High Normal [facility] Comment on above: Order Comment: Name Collection Type:: Clean-Voided Midstream Performed By: #### U A #### [facility] [address] [place] Ql (U) Negative Normal Negative [facility] Comment on above: Order Comment: Name Collection Type:: Clean-Voided Midstream Performed By: #### U A #### [facility] [address] [place] [address] Leukocyte esterase Test strip Ql (U) Negative Normal Negative [facility] Comment on above: Order Comment: Name Collection Type:: Clean-Voided Midstream Performed By: #### U A #### [facility] [address] [place] [address] [place] Nitrite,Urine Negative Normal Negative [facility] Comment on above: Order Comment: Name Collection Type:: Clean-Voided Midstream Performed By: #### U A #### [facility] [address] [place] [address] Occult Blood,Urine Negative Normal Negative [facility] Comment on above: Order Comment: Name Collection Type:: Clean-Voided Midstream Result Comment: PERF ORMED BY: [place] [address] PATHOLOGIST SECUR[employer]IES SALES ASSOCIATE RAFA BYRNE M.D. Performed By: #### U A #### [facility] [address] [place] [address] [place] pH (U) 6.0 [pH] Normal 5.0-9.0 [facility] Comment on above: Order Comment: Name Collection Type:: Clean-Voided Midstream Performed By: #### U A #### [facility] [address] [place] [address] [place] Protein,Urine Negative Normal Negative [facility] Comment on above: Order Comment: Name Collection Type:: Clean-Voided Midstream Performed By: #### U A #### [facility] [address] Specificy [place],Urine 1.018 Normal 1.001-1.03 0 [facility] Comment on above: Order Comment: Name Collection Type:: Clean-Voided Midstream Performed By: #### U A #### [facility] [address] [place] [address] [place] Urobilinogen,Urine Normal Normal Normal [facility] Comment on above: Order Comment: Name Collection Type:: Clean-Voided Midstream Performed By: #### U A #### [facility] [address] Urine clarity by refractomet ry automatedOrdered By: Angela Aden on 02-13-2023 Clarity Refractometry automated (U) Clear Clear [facility] Urine glucose measurement by automated test strip (mass/volume)Ordered By: Angela Aden on 02-13-2023 Glucose Auto test strip (U) [Mass/Vol] >=1000 mg/dL Normal [facility] Urine hemoglobin detection b y automated test stripOrdered By: Angela Aden on 02-13-2023 Hemoglobin Auto test strip Ql (U) Negative Negative [facility] Urine leukocyte esterase det ection by automated test stripOrdered By: Angela Aden on 02-13-2023 Leukocyte esterase Auto test strip Ql (U) Negative Negative [facility] Urobilinogen Auto test strip (U) [Mass/Vol]Ordered By: Angela Aden on 02-13-2023 Urobilinogen (U) [Mass/Vol] Normal mg/dL Normal [facility] WBC Auto (Bld) [#/Vol]Ordere d By: Angela Aden on 02-13-2023 WBC (Bld) [#/Vol] 12.0 10*3/uL 4.1-10.5 [facility] XR chest 2V*on 02-13-2023 XR chest 2V* [facility] [address] [place] [address] [place] [address] XRay Report Signed Patient: Adwoa Porter MR#: [id number] 7 : 1955 Acct:[id number] Age/Sex: 67 / M ADM Date: 02/13/23 Loc: ER Room: Type: [facility] ER Attending Dr: Copies to: Angela Aden APRN Ordering Provider: Angela Aden APRN Date of Service: 02/13/23 XR/XR chest 2V*: Recheck/Abnormal Lab/Rx AP ERECT AND LATERAL CHEST: CLINICAL HISTORY: Multiple recent falls COMPARISON: 02/17/2020 and 10/03/2022 Assessment is slightly limited by large body habitus. A left-sided pacemaker is again visualized. Interstitial changes are again seen. There is no developing consolidation, effusion or pneumothorax. The cardiac, hilar and mediastinal silhouettes are stable. The visualized bony structures are osteopenic. There is endplate spurring at the spine. XR/XR chest 2V* IMPRESSION: CHRONIC INTERSTITIAL CHANGES. NO ACUTE FINDINGS. Impression dictated by: Archana Perez M.D.02/13/2023 5:39 PM Dictation Location: [place] [address] Transcribed By: [facility] 02/13/231738 Dictated By: Archana Perez MD 02/13/231734 Signed By: 02/13/231738 Normal [facility] pH Auto test strip (U)Ordere d By: Angela Aden on 02-13-2023 pH (U) 6.0 [pH] 5.0-9.0 [facility] BNPon 01-29-2023 Natriuretic peptide B (Bld) [Mass/Vol] 6099.0 pg/mL Critically high <=900.0 [facility] Comment on above: Performed By: #### C MP, BNP ####[facility] [address] [place] [address]DrWesley Navarro CBC AUTO DIFFon 01-29-2023 BASO # 0.1 103/ul Normal 0.0-0.1 [facility] Comment on above: Performed By: #### C BC ####[facility] [address] [place], [place] [address]DrWesley Navarro Basophils/100 WBC (Bld) 0.3 % Normal 0.2-2.0 [facility] Comment on above: Performed By: #### C BC ####[facility] Gld[address]udb[address] [place] [address]Dr. Emelina Navarro EO # 0.3 103/ul Normal 0.0-0.7 [facility] Comment on above: Performed By: #### C BC ####[facility] Q[address] [place], [place] [address]Dr. Emelina Navarro Eosinophils/100 WBC (Bld) 1.9 % Normal 0.9-7.0 [facility] Comment on above: Performed By: #### C BC ####[facility] Bh[address] [place], [place] [address]Dr. Emelina Navarro Erythrocyte distribution width (RBC) [Ratio] 18.5 % Critically high 11.0-15.0 [facility] Comment on above: Performed By: #### C BC ####[facility] Debop[address]ve[address] [place], [place] [address]Dr. Emelina Navarro Hematocrit (Bld) [Volume fraction] 49.7 % Normal 42.0-54.0 [facility] Comment on above: Performed By: #### C BC ####[facility] R[address]reafon[address] [place], [place] [address]Dr. Emelina Navarro Hemoglobin (Bld) [Mass/Vol] 16.3 g/dL Normal 14.0-18.0 [facility] Comment on above: Performed By: #### C BC ####[facility] Et[address] [place], [place] [address]Dr. Emelina Navarro IG # 0.07 10e3/ul Critically high 0.00-0.03 [facility] Comment on above: Performed By: #### C BC ####[facility] [address] [place], [place] [address]Dr. Emelina Navarro IG % 0.4 % Normal 0.0-0.5 [facility] Comment on above: Performed By: #### C BC ####[facility] [address] [place], [place] [address]Dr. Awildanitza Ramon LYMPH # 2.6 103/ul Normal 1.2-3.8 [facility] Comment on above: Performed By: #### C BC ####[facility] J[address]icbpibo[address] [place] [address]Dr. Emelina Ramon Lymphocytes/100 WBC (Bld) 16.9 % Critically low 20.5-60.0 [facility] Comment on above: Performed By: #### C BC ####[facility] X[address]aovj[address] [place] [address]Dr. Emelina Navarro MANUAL DIFF REQ NO Normal [facility] Comment on above: Performed By: #### C BC ####[facility] Bjgfswcsfu5145 [place] [address]Dr. Awildanitza Navarro MCH (RBC) [Entitic mass] 28.4 pg Normal 25.9-34.0 [facility] Comment on above: Performed By: #### C BC ####[facility] Qlitvrliiz[address] [place], [place] [address]Dr. Emelina Ramon MCHC (RBC) [Mass/Vol] 32.8 g/dL Normal 29.9-35.2 [facility] Comment on above: Performed By: #### C BC ####[facility] Sp[address] [place], [place] [address]Dr. Emelina Navarro MCV (RBC) [Entitic vol] 86.6 fL Normal 80.0-94.0 [facility] Comment on above: Performed By: #### C BC ####[facility] Wigvnqrfcj7543 [place] [address]Dr. Emelina Navarro MONO # 1.2 103/ul Critically high 0.3-0.8 [facility] Comment on above: Performed By: #### C BC ####[facility] [address]im[address]zi[address] [place], [place] [address]Dr. Emelina Navarro Monocytes/100 WBC (Bld) 7.7 % Normal 1.7-12.0 [facility] Comment on above: Performed By: #### C BC ####[facility] Zogea[address]uy[address] [place], [place] [address]Dr. Emelina Navarro NEUT # 11.4 103/ul Critically high 1.4-6.5 [facility] Comment on above: Performed By: #### C BC ####[facility] Jntxykcqga[address]12 [place] [address]Dr. Emelina Navarro Neutrophils/100 WBC (Bld) 72.8 % Normal 43.0-75.0 [facility] Comment on above: Performed By: #### C BC ####[facility] Brybegbwch[address]48 [place] [address]Dr. Emelina Navarro Platelet mean volume (Bld) [Entitic vol] 9.8 fL Normal 9.5-13.5 [facility] Comment on above: Performed By: #### C BC ####[facility] Qu[address]yqbwgax[address] [place] [address]Dr. Emelina Navarro PLT 200 103/ul Normal 150-450 [facility] Comment on above: Performed By: #### C BC ####[facility] Wklbdtbfqx7885 [place] [address]Dr. Emelina Navarro RBC 5.74 106/ul Normal 4.70-6.10 [facility] Comment on above: Performed By: #### C BC ####[facility] Tfmgznxmwg3620 [place] [address]Dr. Emelina Navarro WBC 15.6 103/ul Critically high 4.0-11.0 [facility] Comment on above: Performed By: #### C BC ####[facility] Kdimovsyyp7886 [place] [address]DrWesley Emelina Navarro DIGOXINon 01-29-2023 DIG 1.1 ng/mL Normal 0.9-2.0 [facility] Comment on above: Performed By: #### D IG ####[facility] Wshdkzinyf9567 [place] [address]DrWesley Emelina Ramon PROF 14(COMP METB)on 023 Albumin [Mass/Vol] 3.8 g/dL Normal 3.4-5.0 [facility] Comment on above: Performed By: #### C MP, BNP ####[facility] Jpgmulkddk80[address] [place] [id number]. Emelina Navarro Albumin/Globulin [Mass ratio] 0.9 {ratio} Normal [facility] Comment on above: Performed By: #### C MP, BNP ####[facility] Rpbafmnsca3929 [place] [id number]. Emelina Navarro ALP [Catalytic activity/Vol] 126 U/L Critically high 46-116 [facility] Comment on above: Performed By: #### C MP, BNP ####[facility] Juqkoejqtm4524 [place] [id number]. Emelina Navarro ALT [Catalytic activity/Vol] 29 U/L Normal 16-63 [facility] Comment on above: Performed By: #### C MP, BNP ####[facility] Hnuuukufjs6612 [place] [address]Dr. Emelina Navarro Anion gap [Moles/Vol] 12.2 mmol/L Normal [facility] Comment on above: Performed By: #### C MP, BNP ####[facility] Eypmaqqnnu8787 [place] [id number]. Emelina Navarro AST [Catalytic activity/Vol] 28 U/L Normal 15-37 [facility] Comment on above: Performed By: #### C MP, BNP ####[facility] Mqcmidglsw4533 [place] [id number]. Emelina Navarro Bilirubin [Mass/Vol] 1.8 mg/dL Critically high 0.2-1.0 [facility] Comment on above: Performed By: #### C MP, BNP ####[facility] Andwjouwqu2376 [place] [id number]. Emelina Navarro Calcium [Mass/Vol] 9.9 mg/dL Normal 8.5-10.1 [facility] Comment on above: Performed By: #### C MP, BNP ####[facility] Udkfadpnjo8923 [place] [address]Dr. Emelina Ramon Chloride [Moles/Vol] 96 mmol/L Critically low 98-107 [facility] Comment on above: Performed By: #### C MP, BNP ####[facility] Pvxvyppxvo9532 [place] [address]Dr. Emelina Navarro CO2 [Moles/Vol] 33.6 mmol/L Critically high 21.0-32.0 [facility] Comment on above: Performed By: #### C MP, BNP ####[facility] Merjc[address] [place], [place] [address]Dr. Emelina Navarro Creatinine [Mass/Vol] 1.66 mg/dL Critically high 0.70-1.30 [facility] Comment on above: Performed By: #### C MP, BNP ####[facility] Cq[address]af[address] [place], [place] [address]Dr. Emelina Navarro EGFR-AF GABONESE 50 mL/min/1.73m2 Critically low >=60 [facility] Comment on above: Performed By: #### C MP, BNP ####[facility] Z[address]ufmh[address] [place], [place] [address]Dr. Emelina Navarro EGFR-NON AF GABONESE 41 mL/min/1.73m2 Critically low >=60 [facility] Comment on above: Performed By: #### C MP, BNP ####[facility] Ntbxfl[address] [place], [place] [address]Dr. Emelina Ramon Globulin (S) [Mass/Vol] 4.3 g/dL Normal [facility] Comment on above: Performed By: #### C MP, BNP ####[facility] [address] [place], [place] [address]Dr. Emelina Navarro Glucose [Mass/Vol] 218 mg/dL Critically high 74-106 [facility] Comment on above: Performed By: #### C MP, BNP ####[facility] Ozwslreupp[address] [place], [place] [address]Dr. Emelina Navarro Potassium [Moles/Vol] 4.8 mmol/L Normal 3.5-5.1 [facility] Comment on above: Performed By: #### C MP, BNP ####[facility] Mx[address]iivfce[address] [place], [place] [address]Dr. Awildanitza Navarro Protein [Mass/Vol] 8.1 g/dL Normal 6.4-8.2 [facility] Comment on above: Performed By: #### C MP, BNP ####[facility] Klq[address]cpwvdf[address] [place], [place] [address]Dr. Emelina Navarro Sodium [Moles/Vol] 137 mmol/L Normal 136-145 [facility] Comment on above: Performed By: #### C MP, BNP ####[facility] Yqfyfbcmnr[address] [place], [place] [address]Dr. Emelina Navarro Urea nitrogen [Mass/Vol] 31.0 mg/dL Critically high 7.0-18.0 [facility] Comment on above: Performed By: #### C MP, BNP ####[facility] Cfqcotigob[address] [place], [place] [address]Dr. Emelina Navarro Urea nitrogen/Creatinine [Mass ratio] 18.7 mg/mg Normal [facility] Comment on above: Performed By: #### C MP, BNP ####[facility] Ixrxpexldn[address] [place], [place] [address]Dr. Emelina Navarro 36on 01-15-2023 36 Normal [facility] BNPon 01-11-2023 Natriuretic peptide B (Bld) [Mass/Vol] 6024.0 pg/mL Critically high <=900.0 [facility] Comment on above: Performed By: #### B WELL TESTER, CMP ####[facility] Tqec[address]bzkn[address] [place], [place] [address]Dr. Emelina Ramon CBC AUTO DIFFon 01-11-2023 BASO # 0.0 103/ul Normal 0.0-0.1 [facility] Comment on above: Performed By: #### C BC ####[facility] Oqpoetidon[address] [place], [place] [address]Dr. Awildanitza Navarro Basophils/100 WBC (Bld) 0.3 % Normal 0.2-2.0 [facility] Comment on above: Performed By: #### C BC ####[facility] Yunotbxsxk[address] [place], [place] [address]Dr. Emelina Navarro EO # 0.4 103/ul Normal 0.0-0.7 [facility] Comment on above: Performed By: #### C BC ####[facility] Wsjsjouvag8753 [place] [id number]. Emelina Navarro Eosinophils/100 WBC (Bld) 3.3 % Normal 0.9-7.0 [facility] Comment on above: Performed By: #### C BC ####[facility] Buqlueguzt9278 [place] [address]Dr. Emelina Navarro Erythrocyte distribution width (RBC) [Ratio] 16.7 % Critically high 11.0-15.0 [facility] Comment on above: Performed By: #### C BC ####[facility] Cyuxcqqgsa[address] [place], [place] [address]Dr. Emelina Navarro Hematocrit (Bld) [Volume fraction] 41.5 % Critically low 42.0-54.0 [facility] Comment on above: Performed By: #### C BC ####[facility] O[address] [place], [place] [address]Dr. Emelina Navarro Hemoglobin (Bld) [Mass/Vol] 13.8 g/dL Critically low 14.0-18.0 [facility] Comment on above: Performed By: #### C BC ####[facility] T[address]vizgd[address] [place], [place] [address]Dr. Emelina Navarro IG # 0.04 10e3/ul Critically high 0.00-0.03 [facility] Comment on above: Performed By: #### C BC ####[facility] [address]uf[address] [place], [place] [address]Dr. Emelina Navarro IG % 0.3 % Normal 0.0-0.5 The [facility] Comment on above: Performed By: #### C BC ####[facility] Dshqijzgrs[address] [place], [place] [address]Dr. Emelina Navarro LYMPH # 1.8 103/ul Normal 1.2-3.8 [facility] Comment on above: Performed By: #### C BC ####[facility] Vhmvigjuuh36[address] [place], [place] [address]Dr. Emelina Navarro Lymphocytes/100 WBC (Bld) 15.1 % Critically low 20.5-60.0 [facility] Comment on above: Performed By: #### C BC ####[facility] Txiulmehew0726 [place] [id number]. Emelina Navarro MANUAL DIFF REQ NO Normal [facility] Comment on above: Performed By: #### C BC ####[facility] Pxbrgrlisq6322 [place] [id number]. Emelina Navarro MCH (RBC) [Entitic mass] 29.0 pg Normal 25.9-34.0 [facility] Comment on above: Performed By: #### C BC ####[facility] Adsrockxpc9645 [place] [id number]. Emelina Navarro MCHC (RBC) [Mass/Vol] 33.3 g/dL Normal 29.9-35.2 [facility] Comment on above: Performed By: #### C BC ####[facility] Ojyysywadn[address] [place], [place] [address]Dr. Emelina Navarro MCV (RBC) [Entitic vol] 87.2 fL Normal 80.0-94.0 [facility] Comment on above: Performed By: #### C BC ####[facility] Fpuuiznejq82[address] [place], [place] [id number]. Emelina Navarro MONO # 0.7 103/ul Normal 0.3-0.8 [facility] Comment on above: Performed By: #### C BC ####[facility] Nbyytwobrp1097 [place] [address]Dr. Emelina Navarro Monocytes/100 WBC (Bld) 5.9 % Normal 1.7-12.0 [facility] Comment on above: Performed By: #### C BC ####[facility] Gxavjxevfb94[address] [place], [place] [id number]. Emelina Navarro NEUT # 8.9 103/ul Critically high 1.4-6.5 [facility] Comment on above: Performed By: #### C BC ####[facility] Zayucbmksy[address] [place], [place] [id number]. Emelina Navarro Neutrophils/100 WBC (Bld) 75.1 % Critically high 43.0-75.0 [facility] Comment on above: Performed By: #### C BC ####[facility] Elohmeaunl8971 [place] [address]Dr. Emelina Navarro Platelet mean volume (Bld) [Entitic vol] 11.7 fL Normal 9.5-13.5 [facility] Comment on above: Performed By: #### C BC ####[facility] Qcjnzumist1551 [place] [id number]. Emelina Navarro PLT 124 103/ul Critically low 150-450 [facility] Comment on above: Performed By: #### C BC ####[facility] Lgeidchzfk2784 [place] [id number]. Emelina Navarro RBC 4.76 106/ul Normal 4.70-6.10 [facility] Comment on above: Performed By: #### C BC ####[facility] Snuxupjtzn1651 [place] [address]Dr. Emelina Navarro WBC 11.8 103/ul Critically high 4.0-11.0 [facility] Comment on above: Performed By: #### C BC ####[facility] Tqcpxvqvay5761 [place] [address]Dr. Emelina Navarro POINT OF CARE GLUCOSEon 12-21 Glucose [Mass/Vol] 339 mg/dL Critically high 74-106 [facility] Comment on above: Performed By: #### P OCGLUC ####[facility] Fimmrgofsf5125 [place] [address]DrWesley Navarro PROF 14(COMP METB)on 023 Albumin [Mass/Vol] 3.3 g/dL Critically low 3.4-5.0 [facility] Comment on above: Performed By: #### B WELL TESTER, CMP ####[facility] Lhewwoyecp8918 [place] [address]DrWesley Navarro Albumin/Globulin [Mass ratio] 0.8 {ratio} Normal [facility] Comment on above: Performed By: #### B WELL TESTER, CMP ####[facility] Rsqoswaiwb4267 [place] [address]DrWesley Navarro ALP [Catalytic activity/Vol] 163 U/L Critically high 46-116 [facility] Comment on above: Performed By: #### B WELL TESTER, CMP ####[facility] Umgkfooxll6678 [place] [address]Dr. Emelina Navarro ALT [Catalytic activity/Vol] 27 U/L Normal 16-63 [facility] Comment on above: Performed By: #### B WELL TESTER, CMP ####[facility] Zxppizlnyx1037[address] [place], [place] [address]Dr. Emelina Navarro Anion gap [Moles/Vol] 10.5 mmol/L Normal [facility] Comment on above: Performed By: #### B WELL TESTER, CMP ####[facility] Jvkejwwcjx5517[address] [place], [place] [address]Dr. Emelina Navarro AST [Catalytic activity/Vol] 28 U/L Normal 15-37 [facility] Comment on above: Performed By: #### B WELL TESTER, CMP ####[facility] Zohhogpffk65[address] [place], [place] [address]Dr. Emelina Navarro Bilirubin [Mass/Vol] 1.3 mg/dL Critically high 0.2-1.0 [facility] Comment on above: Performed By: #### B WELL TESTER, CMP ####[facility] Wjvikxtwbv0743[address] [place], [place] [address]Dr. Emelina Navarro Calcium [Mass/Vol] 9.0 mg/dL Normal 8.5-10.1 [facility] Comment on above: Performed By: #### B WELL TESTER, CMP ####[facility] Qlmcpccsfa9082[address] [place], [place] [address]Dr. Emelina Navarro Chloride [Moles/Vol] 91 mmol/L Critically low 98-107 [facility] Comment on above: Performed By: #### B WELL TESTER, CMP ####[facility] Lofwbrppvq4667[address] [place], [place] [address]Dr. Emelina Navarro CO2 [Moles/Vol] 32.9 mmol/L Critically high 21.0-32.0 [facility] Comment on above: Performed By: #### B WELL TESTER, CMP ####[facility] Areqgnjaoa627[address] [place], [place] [address]Dr. Emelina Navarro Creatinine [Mass/Vol] 1.84 mg/dL Critically high 0.70-1.30 [facility] Comment on above: Performed By: #### B WELL TESTER, CMP ####[facility] Jduavuqmqd5515 [place] [address]Dr. Emelina Navarro EGFR-AF GABONESE 45 mL/min/1.73m2 Critically low >=60 [facility] Comment on above: Performed By: #### B WELL TESTER, CMP ####[facility] Unbmyvovyx8433[address] [place], [place] [address]Dr. Emelina Navarro EGFR-NON AF GABONESE 37 mL/min/1.73m2 Critically low >=60 [facility] Comment on above: Performed By: #### B WELL TESTER, CMP ####[facility] Hmlutliomy1952[address] [place], [place] [address]Dr. Emelina Navarro Globulin (S) [Mass/Vol] 4.3 g/dL Normal [facility] Comment on above: Performed By: #### B WELL TESTER, CMP ####[facility] Yyvgzccrae5236[address] [place], [place] [address]Dr. Emelina Navarro Glucose [Mass/Vol] 305 mg/dL Critically high 74-106 [facility] Comment on above: Performed By: #### B WELL TESTER, CMP ####[facility] Hccupicnej438[address] [place], [place] [address]Dr. Emelina Navarro Potassium [Moles/Vol] 3.4 mmol/L Critically low 3.5-5.1 [facility] Comment on above: Performed By: #### B WELL TESTER, CMP ####[facility] Uqwamepmbm6493[address] [place], [place] [address]Dr. Emelina Navarro Protein [Mass/Vol] 7.6 g/dL Normal 6.4-8.2 [facility] Comment on above: Performed By: #### B WELL TESTER, CMP ####[facility] Vjicdzlibm101[address] [place], [place] [address]Dr. Emelina Navarro Sodium [Moles/Vol] 131 mmol/L Critically low 136-145 Th [facility] Comment on above: Performed By: #### B WELL TESTER, CMP ####[facility] Oloohnolyu308[address] [place], [place] [address]Dr. Emelina Navarro Urea nitrogen [Mass/Vol] 62.0 mg/dL Critically high 7.0-18.0 [facility] Comment on above: Performed By: #### B WELL TESTER, CMP ####[facility] Ozsibsuduw9784[address] [place], [place] [address]Dr. Emelina Navarro Urea nitrogen/Creatinine [Mass ratio] 33.7 mg/mg Normal [facility] Comment on above: Performed By: #### B WELL TESTER, CMP ####[facility] Tforyyheov9879[address] [place], [place] [address]Dr. Emelina Navarro BNPon 01-10-2023 Natriuretic peptide B (Bld) [Mass/Vol] 8763.0 pg/mL Critically high <=900.0 [facility] Comment on above: Performed By: #### C MP, BNP ####[facility] Qbxaterydk2597[address] [place], [place] [address]Dr. Emelina Navarro CBC AUTO DIFFon 01-10-2023 BASO # 0.0 103/ul Normal 0.0-0.1 [facility] Comment on above: Performed By: #### C BC ####[facility] Qycrtkbyiz124[address] [place], [place] [address]Dr. Emelina Navarro Basophils/100 WBC (Bld) 0.4 % Normal 0.2-2.0 [facility] Comment on above: Performed By: #### C BC ####[facility] Ulsebfqfqk8[address] [place], [place] [address]Dr. Emelina Navarro EO # 0.3 103/ul Normal 0.0-0.7 [facility] Comment on above: Performed By: #### C BC ####[facility] Ofedezkqct0168[address] [place], [place] [address]Dr. Emelina Navarro Eosinophils/100 WBC (Bld) 2.8 % Normal 0.9-7.0 [facility] Comment on above: Performed By: #### C BC ####[facility] Gthtskhihh9[address] [place], [place] [address]Dr. Emelina Navarro Erythrocyte distribution width (RBC) [Ratio] 17.2 % Critically high 11.0-15.0 [facility] Comment on above: Performed By: #### C BC ####[facility] Ihcxwfqgfc7659 [place] [address]DrWesley Navarro Hematocrit (Bld) [Volume fraction] 42.1 % Normal 42.0-54.0 [facility] Comment on above: Performed By: #### C BC ####[facility] Gksfehewgo6807 [place] [address]DrWesley Navarro Hemoglobin (Bld) [Mass/Vol] 13.3 g/dL Critically low 14.0-18.0 [facility] Comment on above: Performed By: #### C BC ####[facility] Hbxnrepgav2349[address] [place], [place] [address]DrWesley Navarro IG # 0.05 10e3/ul Critically high 0.00-0.03 [facility] Comment on above: Performed By: #### C BC ####[facility] Lqcwaxpafp[address] [place], [place] [address]DrWesley Navarro IG % 0.4 % Normal 0.0-0.5 [facility] Comment on above: Performed By: #### C BC ####[facility] Svjiwsolry[address] [place], [place] [address]DrWesley Navarro LYMPH # 1.7 103/ul Normal 1.2-3.8 [facility] Comment on above: Performed By: #### C BC ####[facility] Utayjqwdgv1649[address] [place], [place] [address]DrWesley Navarro Lymphocytes/100 WBC (Bld) 14.8 % Critically low 20.5-60.0 [facility] Comment on above: Performed By: #### C BC ####[facility] Fnsumhtyqn9626[address] [place], [place] [address]DrWesley Navarro MANUAL DIFF REQ NO Normal [facility] Comment on above: Performed By: #### C BC ####[facility] Hanjuckjzm1178[address] [place], [place] [address]DrWesley Navarro MCH (RBC) [Entitic mass] 28.4 pg Normal 25.9-34.0 [facility] Comment on above: Performed By: #### C BC ####[facility] Cylwvxfxei6249 [place] [address]DrWesley Navarro MCHC (RBC) [Mass/Vol] 31.6 g/dL Normal 29.9-35.2 [facility] Comment on above: Performed By: #### C BC ####[facility] Ggrewfhoyq5695 [place] [address]DrWesley Navarro MCV (RBC) [Entitic vol] 89.8 fL Normal 80.0-94.0 [facility] Comment on above: Performed By: #### C BC ####[facility] Pwopcjqlza9254[address] [place], [place] [address]DrWesley Navarro MONO # 0.9 103/ul Critically high 0.3-0.8 [facility] Comment on above: Performed By: #### C BC ####[facility] Rvukxxmdwu7583[address] [place], [place] [address]DrWesley Navarro Monocytes/100 WBC (Bld) 7.6 % Normal 1.7-12.0 [facility] Comment on above: Performed By: #### C BC ####[facility] Gjusdvrddf8407[address] [place], [place] [address]DrWesley Navarro NEUT # 8.4 103/ul Critically high 1.4-6.5 [facility] Comment on above: Performed By: #### C BC ####[facility] Tnwwcxdkeb5[address] [place], [place] [address]DrWesley Navarro Neutrophils/100 WBC (Bld) 74.0 % Normal 43.0-75.0 [facility] Comment on above: Performed By: #### C BC ####[facility] Pvsglulhlp8204[address] [place], [place] [address]DrWesley Navarro Platelet mean volume (Bld) [Entitic vol] 11.1 fL Normal 9.5-13.5 [facility] Comment on above: Performed By: #### C BC ####[facility] Qdduihfshp5194[address] [place], [place] [address]DrWesley Navarro PLT 111 103/ul Critically low 150-450 [facility] Comment on above: Performed By: #### C BC ####[facility] Pjshtghlyg3564 [place] [address]Dr. Emelina Navarro RBC 4.69 106/ul Critically low 4.70-6.10 [facility] Comment on above: Performed By: #### C BC ####[facility] Ziqyxueokf5378 [place] [address]Dr. Emelina Navarro WBC 11.4 103/ul Critically high 4.0-11.0 [facility] Comment on above: Performed By: #### C BC ####[facility] Ylujarbljl3283 [place] [address]DrWesley Navarro PROF 14(COMP METB)on 023 Albumin [Mass/Vol] 3.3 g/dL Critically low 3.4-5.0 [facility] Comment on above: Performed By: #### C MP, BNP ####[facility] Vikvuqwmfg9970 [place] [address]Dr. Emelina Navarro Albumin/Globulin [Mass ratio] 0.8 {ratio} Normal [facility] Comment on above: Performed By: #### C MP, BNP ####[facility] Woqpetvulc1727 [place] [address]Dr. Emelina Navarro ALP [Catalytic activity/Vol] 165 U/L Critically high 46-116 [facility] Comment on above: Performed By: #### C MP, BNP ####[facility] Imbokewsim0174 [place] [address]DrWesley Navarro ALT [Catalytic activity/Vol] 27 U/L Normal 16-63 [facility] Comment on above: Performed By: #### C MP, BNP ####[facility] Qrkvnozmxh2542 [place] [address]DrWesley Navarro Anion gap [Moles/Vol] 9.5 mmol/L Normal [facility] Comment on above: Performed By: #### C MP, BNP ####[facility] Ijxdcdrdjl115[address] [place], [place] [address]Dr. Emelina Navarro AST [Catalytic activity/Vol] 24 U/L Normal 15-37 [facility] Comment on above: Performed By: #### C MP, BNP ####[facility] Tsdkrvfady2490 [place] [address]Dr. Emelina Navarro Bilirubin [Mass/Vol] 1.3 mg/dL Critically high 0.2-1.0 [facility] Comment on above: Performed By: #### C MP, BNP ####[facility] Xldutafeim9954[address] [place], [place] [address]Dr. Emelina Navarro Calcium [Mass/Vol] 9.3 mg/dL Normal 8.5-10.1 [facility] Comment on above: Performed By: #### C MP, BNP ####[facility] Wsorssjeby7778[address] [place], [place] [address]Dr. Emelina Navarro Chloride [Moles/Vol] 93 mmol/L Critically low 98-107 [facility] Comment on above: Performed By: #### C MP, BNP ####[facility] Ftemxmewjm4076[address] [place], [place] [address]Dr. Emelina Navarro CO2 [Moles/Vol] 36.4 mmol/L Critically high 21.0-32.0 [facility] Comment on above: Performed By: #### C MP, BNP ####[facility] Xbyvnxvssi837[address] [place], [place] [address]Dr. Emelina Navarro Creatinine [Mass/Vol] 1.99 mg/dL Critically high 0.70-1.30 [facility] Comment on above: Performed By: #### C MP, BNP ####[facility] Ycdqxvlkwj7609[address] [place], [place] [address]Dr. Emelina Navarro EGFR-AF GABONESE 41 mL/min/1.73m2 Critically low >=60 [facility] Comment on above: Performed By: #### C MP, BNP ####[facility] Mivodzglah3656[address] [place], [place] [address]Dr. Emelina Navarro EGFR-NON AF GABONESE 34 mL/min/1.73m2 Critically low >=60 [facility] Comment on above: Performed By: #### C MP, BNP ####[facility] Hupxbroxev5817 [place] [address]Dr. Emelian Navarro Globulin (S) [Mass/Vol] 4.2 g/dL Normal [facility] Comment on above: Performed By: #### C MP, BNP ####[facility] Rnxayycpfu1077 [place] [address]Dr. Emelina Navarro Glucose [Mass/Vol] 311 mg/dL Critically high 74-106 [facility] Comment on above: Performed By: #### C MP, BNP ####[facility] Igqkhufknh172[address] [place], [place] [address]Dr. Emelina Navarro Potassium [Moles/Vol] 3.9 mmol/L Normal 3.5-5.1 [facility] Comment on above: Performed By: #### C MP, BNP ####[facility] Xuhboexkmw373[address] [place], [place] [address]Dr. Emelina Navarro Protein [Mass/Vol] 7.5 g/dL Normal 6.4-8.2 [facility] Comment on above: Performed By: #### C MP, BNP ####[facility] Pfowemzamz8815[address] [place], [place] [address]Dr. Emelina Navarro Sodium [Moles/Vol] 135 mmol/L Critically low 136-145 [facility] Comment on above: Performed By: #### C MP, BNP ####[facility] Ttfoeefuxa7548[address] [place], [place] [address]Dr. Emelina Navarro Urea nitrogen [Mass/Vol] 57.0 mg/dL Critically high 7.0-18.0 [facility] Comment on above: Performed By: #### C MP, BNP ####[facility] Rzzyiowswy0582[address] [place], [place] [address]Dr. Emelina Navarro Urea nitrogen/Creatinine [Mass ratio] 28.6 mg/mg Normal [facility] Comment on above: Performed By: #### C MP, BNP ####[facility] Ucozvoiidp2311[address] [place], [place] [address]Dr. Emelina Navarro BNPon 01-09-2023 Natriuretic peptide B (Bld) [Mass/Vol] 9097.0 pg/mL Critically high <=900.0 The [facility] Comment on above: Performed By: #### B WELL TESTER, CMP ####[facility] Vxkjqrbmfl110[address] [place], [place] [address]Dr. Emelina Navarro CBC AUTO DIFFon 01-09-2023 BASO # 0.0 103/ul Normal 0.0-0.1 [facility] Comment on above: Performed By: #### C BC ####[facility] Vwsgyzjman6814[address] [place], [place] [address]Dr. Awildanitza Navarro Basophils/100 WBC (Bld) 0.2 % Normal 0.2-2.0 [facility] Comment on above: Performed By: #### C BC ####[facility] Zrnwmilxcm587[address] [place], [place] [address]Dr. Emelina Navarro EO # 0.2 103/ul Normal 0.0-0.7 [facility] Comment on above: Performed By: #### C BC ####[facility] Anohdeukwh[address] [place], [place] [address]Dr. Awildanitza Navarro Eosinophils/100 WBC (Bld) 2.1 % Normal 0.9-7.0 [facility] Comment on above: Performed By: #### C BC ####[facility] Qlbyhfstto88[address] [place], [place] [address]Dr. Awildanitza Navarro Erythrocyte distribution width (RBC) [Ratio] 17.1 % Critically high 11.0-15.0 [facility] Comment on above: Performed By: #### C BC ####[facility] Faxnflaxvo9299[address] [place], [place] [address]Dr. Emelina Navarro Hematocrit (Bld) [Volume fraction] 40.5 % Critically low 42.0-54.0 [facility] Comment on above: Performed By: #### C BC ####[facility] Znvtxufoaa8485[address] [place], [place] [address]Dr. Emelina Navarro Hemoglobin (Bld) [Mass/Vol] 13.0 g/dL Critically low 14.0-18.0 [facility] Comment on above: Performed By: #### C BC ####[facility] Fawqeizozu9078 [place] [id number]. Emelina Navarro IG # 0.06 10e3/ul Critically high 0.00-0.03 [facility] Comment on above: Performed By: #### C BC ####[facility] Ywgrrxshyg6030 [place] [address]Dr. Emelina Navarro IG % 0.5 % Normal 0.0-0.5 [facility] Comment on above: Performed By: #### C BC ####[facility] Flopeskuqm7575 [place] [address]Dr. Emelina Ramon LYMPH # 1.6 103/ul Normal 1.2-3.8 [facility] Comment on above: Performed By: #### C BC ####[facility] Zlmfhjhhhk7546 [place] [address]Dr. Awildanitza Navarro Lymphocytes/100 WBC (Bld) 14.1 % Critically low 20.5-60.0 [facility] Comment on above: Performed By: #### C BC ####[facility] Aphjfsisnk9122 [place] [address]Dr. Awildanitza Navarro MANUAL DIFF REQ NO Normal [facility] Comment on above: Performed By: #### C BC ####[facility] Mlzczbtlzz7426 [place] [address]Dr. Emelina Navarro MCH (RBC) [Entitic mass] 28.4 pg Normal 25.9-34.0 [facility] Comment on above: Performed By: #### C BC ####[facility] Zxkikbzzjn4694 [place] [address]Dr. Emelina Navarro MCHC (RBC) [Mass/Vol] 32.1 g/dL Normal 29.9-35.2 [facility] Comment on above: Performed By: #### C BC ####[facility] Shhpjlcwst5970 [place] [address]Dr. Emelina Navarro MCV (RBC) [Entitic vol] 88.4 fL Normal 80.0-94.0 [facility] Comment on above: Performed By: #### C BC ####[facility] Xtdwoqovof2164 [place] [id number]. Emelina Navarro MONO # 0.9 103/ul Critically high 0.3-0.8 [facility] Comment on above: Performed By: #### C BC ####[facility] Lsyzrsjhlh8229 [place] [id number]. Emelina Navarro Monocytes/100 WBC (Bld) 8.0 % Normal 1.7-12.0 [facility] [facility] Comment on above: Performed By: #### C BC ####[facility] Unkdurljdd[address] [place] [phone]. Emelina Navarro NEUT # 8.6 103/ul Critically high 1.4-6.5 [facility] Comment on above: Performed By: #### C BC ####[facility] Kgnthfftmq3715 [place] [address]Dr. Emelina Navarro Neutrophils/100 WBC (Bld) 75.1 % Critically high 43.0-75.0 The [facility] Comment on above: Performed By: #### C BC ####[facility] Cixcbgyclh5552 [place] [address]Dr. Emelina Navarro Platelet mean volume (Bld) [Entitic vol] 11.2 fL Normal 9.5-13.5 The [facility] Comment on above: Performed By: #### C BC ####[facility] Harbqwtilm9602 [place] [id number]. Emelina Navarro PLT 99 103/ul Critically low 150-450 The [facility] Comment on above: Performed By: #### C BC ####[facility] Dwoygvrxpz1095 [place] [phone]. Emelina Navarro RBC 4.58 106/ul Critically low 4.70-6.10 [facility] Comment on above: Performed By: #### C BC ####[facility] Qqkqodetwn1521 [place] [phone]. Emelina Navarro WBC 11.5 103/ul Critically high 4.0-11.0 The [facility] Comment on above: Performed By: #### C BC ####[facility] Yhydgvnuov46[address] [place], [place] [address]Dr. Emelina Navarro CT HEAD WO CONon 01-09-2023 CT HEAD WO CON Normal The [facility] PROF 14(COMP METB)on 023 Albumin [Mass/Vol] 3.2 g/dL Critically low 3.4-5.0 Th e [facility] Comment on above: Performed By: #### B WELL TESTER, CMP ####[facility] Bfmztrsbvt1461 [place] [phone]. Emelina Navarro Albumin/Globulin [Mass ratio] 0.8 {ratio} Normal [facility] Comment on above: Performed By: #### B WELL TESTER, CMP ####[facility] Qwozonxfhp5593 [place] [address]Dr. Emelina Navarro ALP [Catalytic activity/Vol] 150 U/L Critically high 46-116 [facility] Comment on above: Performed By: #### B WELL TESTER, CMP ####[facility] Mxcfjqhvay5370 [place] [address]Dr. Emelina Navarro ALT [Catalytic activity/Vol] 27 U/L Normal 16-63 [facility] Comment on above: Performed By: #### B WELL TESTER, CMP ####[facility] Pvwmmkvfpi0739 [place] [address]Dr. Emelina Navarro Anion gap [Moles/Vol] 9.7 mmol/L Normal [facility] Comment on above: Performed By: #### B WELL TESTER, CMP ####[facility] Sqenvcrzow2551 [place] [address]Dr. Emelina Navarro AST [Catalytic activity/Vol] 29 U/L Normal 15-37 [facility] Comment on above: Performed By: #### B WELL TESTER, CMP ####[facility] Gjbqfomklc7025 [place] [phone]. Emelina Navarro Bilirubin [Mass/Vol] 1.3 mg/dL Critically high 0.2-1.0 [facility] Comment on above: Performed By: #### B WELL TESTER, CMP ####[facility] Hopwmjokim9266 [place] [address]Dr. Emelina Nvaarro Calcium [Mass/Vol] 9.0 mg/dL Normal 8.5-10.1 [facility] Comment on above: Performed By: #### B WELL TESTER, CMP ####[facility] Gfuhziqbqa20[address] [place], [place] [address]Dr. Emelina Navarro Chloride [Moles/Vol] 93 mmol/L Critically low 98-107 [facility] Comment on above: Performed By: #### B WELL TESTER, CMP ####[facility] Arrllbkkrt06[address] [place], [place] [address]Dr. Emelina Navarro CO2 [Moles/Vol] 33.6 mmol/L Critically high 21.0-32.0 [facility] Comment on above: Performed By: #### B WELL TESTER, CMP ####[facility] Asxyrinveq5013[address] [place], [place] [address]Dr. Emelina Navarro Creatinine [Mass/Vol] 1.75 mg/dL Critically high 0.70-1.30 [facility] Comment on above: Performed By: #### B WELL TESTER, CMP ####[facility] Lcbftonunc0739[address] [place], [place] [address]Dr. Emelina Navarro EGFR-AF GABONESE 47 mL/min/1.73m2 Critically low >=60 [facility] Comment on above: Performed By: #### B WELL TESTER, CMP ####[facility] Rgslvbloiq035[address] [place], [place] [address]Dr. Emelina Navarro EGFR-NON AF GABONESE 39 mL/min/1.73m2 Critically low >=60 [facility] Comment on above: Performed By: #### B WELL TESTER, CMP ####[facility] Qbhcwwqvai9848[address] [place], [place] [address]Dr. Emelina Navarro Globulin (S) [Mass/Vol] 4.1 g/dL Normal [facility] Comment on above: Performed By: #### B WELL TESTER, CMP ####[facility] Dwnpsufmvr2763[address] [place], [place] [address]Dr. Emelina Navarro Glucose [Mass/Vol] 235 mg/dL Critically high 74-106 [facility] Comment on above: Performed By: #### B WELL TESTER, CMP ####[facility] Jzscufelvb1522[address] [place], [place] [address]Dr. Emelina Navarro Potassium [Moles/Vol] 3.3 mmol/L Critically low 3.5-5.1 [facility] Comment on above: Performed By: #### B WELL TESTER, CMP ####[facility] Dcucbyydgc9505[address] [place], [place] [address]Dr. Emelina Navarro Protein [Mass/Vol] 7.3 g/dL Normal 6.4-8.2 [facility] Comment on above: Performed By: #### B WELL TESTER, CMP ####[facility] Xkbtcxbfnq875[address] [place], [place] [address]Dr. Emelina Navarro Sodium [Moles/Vol] 133 mmol/L Critically low 136-145 Th [facility] Comment on above: Performed By: #### B WELL TESTER, CMP ####[facility] Xyfqnazwnw050[address] [place], [place] [address]Dr. Emelina Navarro Urea nitrogen [Mass/Vol] 50.0 mg/dL Critically high 7.0-18.0 [facility] Comment on above: Performed By: #### B WELL TESTER, CMP ####[facility] Menkpedltk7413[address] [place], [place] [address]Dr. Emelina Navarro Urea nitrogen/Creatinine [Mass ratio] 28.6 mg/mg Normal [facility] Comment on above: Performed By: #### B WELL TESTER, CMP ####[facility] Jvfdcpmmmp445[address] [place], [place] [address]Dr. Emelina Ramon BNPon 01-08-2023 Natriuretic peptide B (Bld) [Mass/Vol] 8174.0 pg/mL Critically high <=900.0 [facility] Comment on above: Performed By: #### B WELL TESTER ####[facility] Seppmzuhsy1814[address] [place], [place] [address]Dr. Awildanitza Ramon CBC AUTO DIFFon 01-08-2023 BASO # 0.0 103/ul Normal 0.0-0.1 [facility] Comment on above: Performed By: #### C BC ####[facility] Nojveiaxyn3758[address] [place], [place] [address]Dr. Emelina Navarro Basophils/100 WBC (Bld) 0.2 % Normal 0.2-2.0 [facility] Comment on above: Performed By: #### C BC ####[facility] Hqnpmyhjge3279 [place] [address]Dr. Emelina Navarro EO # 0.2 103/ul Normal 0.0-0.7 The [facility] Comment on above: Performed By: #### C BC ####[facility] Asvihinzfi2498 [place] [address]Dr. Emelina Navarro Eosinophils/100 WBC (Bld) 1.7 % Normal 0.9-7.0 [facility] Comment on above: Performed By: #### C BC ####[facility] Gyualvudfg159[address] [place], [place] [address]Dr. Emelina Navarro Erythrocyte distribution width (RBC) [Ratio] 17.4 % Critically high 11.0-15.0 [facility] Comment on above: Performed By: #### C BC ####[facility] Dqglvcjsqc378014 [address] [place], [place] [address]Dr. Emelina Navarro Hematocrit (Bld) [Volume fraction] 40.8 % Critically low 42.0-54.0 [facility] Comment on above: Performed By: #### C BC ####[facility] Grbtfgfwlv8928[address] [place], [place] [address]Dr. Emelina Navarro Hemoglobin (Bld) [Mass/Vol] 13.3 g/dL Critically low 14.0-18.0 The [facility] Comment on above: Performed By: #### C BC ####[facility] Qkbmslgdsv6728[address] [place], [place] [address]Dr. Emelina Navarro IG # 0.05 10e3/ul Critically high 0.00-0.03 [facility] Comment on above: Performed By: #### C BC ####[facility] Qtbowvuald232[address] [place], [place] [address]Dr. Awildanitza Navarro IG % 0.4 % Normal 0.0-0.5 The [facility] Comment on above: Performed By: #### C BC ####[facility] Qzecrdtjfl8347[address] [place], [place] [address]DrWesley Navarro LYMPH # 1.7 103/ul Normal 1.2-3.8 The [facility] Comment on above: Performed By: #### C BC ####[facility] Vltdoemujp0163 [place] [phone]. Emelina Ramon Lymphocytes/100 WBC (Bld) 12.5 % Critically low 20.5-60.0 [facility] Comment on above: Performed By: #### C BC ####[facility] Xnnpslkqoi8004 [place] [phone]. Emelina Navarro MANUAL DIFF REQ NO Normal [facility] Comment on above: Performed By: #### C BC ####[facility] Odqroxpqxi3541 [place] [phone]. Emelina Navarro MCH (RBC) [Entitic mass] 29.1 pg Normal 25.9-34.0 The [facility] Comment on above: Performed By: #### C BC ####[facility] Vxjjtzgxbq00[address] [place], [place] [address]Dr. Emelina Navarro MCHC (RBC) [Mass/Vol] 32.6 g/dL Normal 29.9-35.2 The [facility] Comment on above: Performed By: #### C BC ####[facility] Nhkskixzsk2758 [place] [phone] Awildanitza Navarro MCV (RBC) [Entitic vol] 89.3 fL Normal 80.0-94.0 The [facility] Comment on above: Performed By: #### C BC ####[facility] Rgjpsqqtwp5627 [place] [address]Dr. Emelina Navarro MONO # 1.0 103/ul Critically high 0.3-0.8 [facility] Comment on above: Performed By: #### C BC ####[facility] Umolvmfjmk6788 [place] [phone] Navarro Monocytes/100 WBC (Bld) 7.6 % Normal 1.7-12.0 The [facility] Comment on above: Performed By: #### C BC ####[facility] Gdelhufcgc6639 [place] [phone] Navarro NEUT # 10.3 103/ul Critically high 1.4-6.5 [facility] Comment on above: Performed By: #### C BC ####[facility] Dhjtzzwgdv5639 [place] [phone]. Emelina Navarro Neutrophils/100 WBC (Bld) 77.6 % Critically high 43.0-75.0 [facility] Comment on above: Performed By: #### C BC ####[facility] Gebihkzpbk7596 [place] [phone]. Emelina Navarro Platelet mean volume (Bld) [Entitic vol] 11.0 fL Normal 9.5-13.5 [facility] Comment on above: Performed By: #### C BC ####[facility] Vijjvqbvyx5085 [place] [address]Dr. Emelina Navarro PLT 106 103/ul Critically low 150-450 [facility] Comment on above: Performed By: #### C BC ####[facility] Fqjsigneda9288 [place] [phone]. Emelina Navarro RBC 4.57 106/ul Critically low 4.70-6.10 [facility] Comment on above: Performed By: #### C BC ####[facility] Gijeovtgiv1268 [place] [phone]. Emelina Navarro WBC 13.3 103/ul Critically high 4.0-11.0 [facility] Comment on above: Performed By: #### C BC ####[facility] Cesevgxshv5838 [place] [phone]. Emelina Navarro CULTURE URINEon 01-08-2023 CULTURE URINE Culture Observations : LIGHT GROWTH OF MIXED SKIN CEDRIC. NO POTENTIAL PATHOGENS SEEN. Normal The [facility] Comment on above: Performed By: #### U RCX ####[facility] Bdyhaxzlow5[address] [place], [place] [address]Dr. Emelina Navarro ECHOCARDIO M/2D COMPLETEon 0 01-08-2023 ECHOCARDIO M/2D COMPLETE Normal [facility] PROCALCITONINon 01-08-2023 Procalcitonin 0.10 ng/mL Critically high 0.00-0.08 The [facility] Comment on above: Result Comment: .A p rocalcitonin (PCT) level above 2.0 ng/mL on the firstday of ICU admission is associated with a high risk forprogression to severe sepsis and/or septic shock. .A PCT level below 0.5 ng/mL on the first day of ICUadmission is associated with a low risk for progressionto severe sepsis and/or septic shock. .Note: Concentrations <0.5 ng/mL do not exclude aninfection, on account of localized infections (withoutsystemic signs) which can be associated with such lowconcentrations, or a systemic infection in its initialstages (<6 hours).Furthermore, increased procalcitonin can occur withoutinfection. PCT concentrations between 0.5 and 2.0 ng/mLshould be interpreted taking into account the patient'shistory. It is recommended to retest PCT within 6-24 hoursif any concentrations <2 ng/mL are obtained. Performed By: #### P [facility] ####[facility] Wnmaaegcqg9618[address] [place], [place] [address]Dr. Emelina Navarro PROF 14(COMP METB)on 023 Albumin [Mass/Vol] 3.3 g/dL Critically low 3.4-5.0 [facility] Comment on above: Performed By: #### C MP ####[facility] Oeborjruwg1922[address] [place], [place] [address]Dr. Emelina Navarro Albumin/Globulin [Mass ratio] 0.8 {ratio} Normal [facility] Comment on above: Performed By: #### C MP ####[facility] Emvpqsmblo6204[address] [place], [place] [address]Dr. Emelina Navarro ALP [Catalytic activity/Vol] 140 U/L Critically high 46-116 [facility] Comment on above: Performed By: #### C MP ####[facility] Lrmfprvbcj6165[address] [place], [place] [address]Dr. Emelina Navarro ALT [Catalytic activity/Vol] 22 U/L Normal 16-63 [facility] Comment on above: Performed By: #### C MP ####[facility] Xiyvebiclo752614 [address] [place], [place] [address]Dr. Emelina Navarro Anion gap [Moles/Vol] 13.1 mmol/L Normal Th e [facility] Comment on above: Performed By: #### C MP ####[facility] Yjxediozet0575 [place] [phone]. Emelina Navarro AST [Catalytic activity/Vol] 21 U/L Normal 15-37 [facility] Comment on above: Performed By: #### C MP ####[facility] Qsubfrvtsl7424 [place] [phone]. Emelina Navarro Bilirubin [Mass/Vol] 1.3 mg/dL Critically high 0.2-1.0 [facility] Comment on above: Performed By: #### C MP ####[facility] Qbmmvhneui3714 [place] [address]Dr. Emelina Naavrro Calcium [Mass/Vol] 9.1 mg/dL Normal 8.5-10.1 [facility] Comment on above: Performed By: #### C MP ####[facility] Hyhofewgap024[address] [place], [place] [address]Dr. Emelina Ramon Chloride [Moles/Vol] 95 mmol/L Critically low 98-107 [facility] Comment on above: Performed By: #### C MP ####[facility] Pcprxsqexe404[address] [place], [place] [address]Dr. Emelina Navarro CO2 [Moles/Vol] 30.4 mmol/L Normal 21.0-32.0 [facility] Comment on above: Performed By: #### C MP ####[facility] Beztuizlbp8053[address] [place], [place] [address]Dr. Emelina Ramon Creatinine [Mass/Vol] 1.67 mg/dL Critically high 0.70-1.30 [facility] Comment on above: Performed By: #### C MP ####[facility] Eqymxbscly8546 [place] [phone]. Emelina Navarro EGFR-AF GABONESE 50 mL/min/1.73m2 Critically low >=60 The [facility] Comment on above: Performed By: #### C MP ####[facility] Kxmzocdivr[address] [place], [place] [address]Dr. Emelina Navarro EGFR-NON AF GABONESE 41 mL/min/1.73m2 Critically low >=60 [facility] Comment on above: Performed By: #### C MP ####[facility] Ntandrsasv6660 [place] [address]Dr. Emelina Navarro Globulin (S) [Mass/Vol] 3.9 g/dL Normal [facility] Comment on above: Performed By: #### C MP ####[facility] Wmttdgyjfg8009 [place] [address]Dr. Emelina Navarro Glucose [Mass/Vol] 198 mg/dL Critically high 74-106 T [facility] Comment on above: Performed By: #### C MP ####[facility] Jwyuibajcv1786 [place] [address]Dr. Emelina Ramon Potassium [Moles/Vol] 3.5 mmol/L Normal 3.5-5.1 [facility] Comment on above: Performed By: #### C MP ####[facility] Rbtjdbakpf1062[address] [place], [place] [address]Dr. Emelina Navarro Protein [Mass/Vol] 7.2 g/dL Normal 6.4-8.2 [facility] Comment on above: Performed By: #### C MP ####[facility] Mjxjjvwmdv099[address] [place], [place] [address]Dr. Emelina Navarro Sodium [Moles/Vol] 135 mmol/L Critically low 136-145 Th [facility] Comment on above: Performed By: #### C MP ####[facility] Fhtgbupppt306[address] [place], [place] [address]Dr. Emelina Navarro Urea nitrogen [Mass/Vol] 42.0 mg/dL Critically high 7.0-18.0 [facility] Comment on above: Performed By: #### C MP ####[facility] Biotimxhbt4569[address] [place], [place] [address]Dr. Emelina Ramon Urea nitrogen/Creatinine [Mass ratio] 25.1 mg/mg Normal [facility] Comment on above: Performed By: #### C MP ####[facility] Fupgzzujkt1876 [place] [address]Dr. Emelina Navarro PROTIMEon 02-20-2023 INR Coag (PPP) [Relative time] 2.59 {INR} Normal The [facility] Comment on above: Performed By: #### P T ####[facility] Okqbbzutfw7075[address] [place], [place] [address]Dr. Emelina Navarro INR GUIDELINES SEE BELOW Normal [facility] Comment on above: Result Comment: WENDY RED INR: 2.0 - 3.0 CONDITIONS NOT LISTED BELOW 2.5 - 3.5 FOR PROSTHETIC HEART VALVE REPLACEMENT 2.5 - 3.5 RECURRENT THROMBOSIS Performed By: #### P T ####[facility] Clffrakeib88[address] [place], [place] [address]Dr. Emelina Navarro PT Coag (PPP) [Time] 26.0 s Critically high 9.0-11.6 [facility] Comment on above: Performed By: #### P T ####[facility] Exwkljiazd996[address] [place], [place] [address]Dr. Emelina Navarro CBC AUTO DIFFon 01-07-2023 BASO # 0.0 103/ul Normal 0.0-0.1 [facility] Comment on above: Performed By: #### C BC ####[facility] Xvsofvwwss7102[address] [place], [place] [address]Dr. Emelina Navarro Basophils/100 WBC (Bld) 0.3 % Normal 0.2-2.0 [facility] Comment on above: Performed By: #### C BC ####[facility] Alujaqesbi4478[address] [place], [place] [address]Dr. Emelina Navarro EO # 0.3 103/ul Normal 0.0-0.7 The [facility] Comment on above: Performed By: #### C BC ####[facility] Gywfqzkozv907[address] [place], [place] [address]Dr. Emelina Navarro Eosinophils/100 WBC (Bld) 2.3 % Normal 0.9-7.0 The [facility] Comment on above: Performed By: #### C BC ####[facility] Xdncvgbopn164[address] [place], [place] [address]Dr. Emelina Navarro Erythrocyte distribution width (RBC) [Ratio] 17.8 % Critically high 11.0-15.0 [facility] Comment on above: Performed By: #### C BC ####[facility] Xirqonmgvk7410 [place] [address]Dr. Emelina Navarro Hematocrit (Bld) [Volume fraction] 43.3 % Normal 42.0-54.0 [facility] Comment on above: Performed By: #### C BC ####[facility] Rjbkuppomf6743 [place] [address]DrWesley Emelina Navarro Hemoglobin (Bld) [Mass/Vol] 13.6 g/dL Critically low 14.0-18.0 [facility] Comment on above: Performed By: #### C BC ####[facility] Mkpymcrwhr[address] [place], [place] [address]Dr. Emelina Ramon IG # 0.05 10e3/ul Critically high 0.00-0.03 [facility] Comment on above: Performed By: #### C BC ####[facility] Zkzpjfsrsy693[address] [place], [place] [address]Dr. Emelina Navarro IG % 0.4 % Normal 0.0-0.5 [facility] Comment on above: Performed By: #### C BC ####[facility] Mmohjdfjla[address] [place], [place] [address]DrWesley Emelina Ramon LYMPH # 1.8 103/ul Normal 1.2-3.8 [facility] Comment on above: Performed By: #### C BC ####[facility] Xarobcmgew[address] [place], [place] [address]DrWesley Awildanitza Navarro Lymphocytes/100 WBC (Bld) 12.8 % Critically low 20.5-60.0 [facility] Comment on above: Performed By: #### C BC ####[facility] Trqvxfqfyu5174 [place] [address]DrWesley Awildanitza Navarro MANUAL DIFF REQ NO Normal [facility] Comment on above: Performed By: #### C BC ####[facility] Mjxcgvlriw3880 [place] [address]DrWesley Navarro MCH (RBC) [Entitic mass] 28.4 pg Normal 25.9-34.0 [facility] Comment on above: Performed By: #### C BC ####[facility] Wizbwkigbx5193 [place] [phone]. Emelina Ramon MCHC (RBC) [Mass/Vol] 31.4 g/dL Normal 29.9-35.2 [facility] Comment on above: Performed By: #### C BC ####[facility] Exfmwawcnt9107 [place] [phone] Navarro MCV (RBC) [Entitic vol] 90.4 fL Normal 80.0-94.0 [facility] Comment on above: Performed By: #### C BC ####[facility] Yxregaazsw1524 [place] [phone] Naavrro MONO # 0.9 103/ul Critically high 0.3-0.8 [facility] Comment on above: Performed By: #### C BC ####[facility] Nmtwnvpyww0506 [place] [phone]. Emelina Navarro Monocytes/100 WBC (Bld) 6.8 % Normal 1.7-12.0 [facility] Comment on above: Performed By: #### C BC ####[facility] Smfswjdzlx5298 [place] [phone]. Awildanitza Ramon NEUT # 10.7 103/ul Critically high 1.4-6.5 [facility] Comment on above: Performed By: #### C BC ####[facility] Msvegluwoi0673 [place] [phone] Navarro Neutrophils/100 WBC (Bld) 77.4 % Critically high 43.0-75.0 The [facility] Comment on above: Performed By: #### C BC ####[facility] Yedifpojrp4815 [place] [phone] Navarro Platelet mean volume (Bld) [Entitic vol] 11.5 fL Normal 9.5-13.5 The [facility] Comment on above: Performed By: #### C BC ####[facility] Myhgmaoawv4171 [place] [phone] Navarro PLT 114 103/ul Critically low 150-450 The [facility] Comment on above: Performed By: #### C BC ####[facility] Zylxrviffy4276 [place] [phone]. Emelina Navarro RBC 4.79 106/ul Normal 4.70-6.10 [facility] Comment on above: Performed By: #### C BC ####[facility] Gxebpixpni3393 [place] [phone]. Emelian Navarro WBC 13.8 103/ul Critically high 4.0-11.0 [facility] Comment on above: Performed By: #### C BC ####[facility] Xzgnchmlsx8210 [place] [address]Dr. Emelina Navarro PROF 14(COMP METB)on 023 Albumin [Mass/Vol] 3.4 g/dL Normal 3.4-5.0 [facility] Comment on above: Performed By: #### C MP ####[facility] Kggfcpgbzd1671 [place] [address]Dr. Emelina Navarro Albumin/Globulin [Mass ratio] 0.9 {ratio} Normal [facility] Comment on above: Performed By: #### C MP ####[facility] Jyospiqkmd5126 [place] [address]Dr. Emelina Navarro ALP [Catalytic activity/Vol] 130 U/L Critically high 46-116 [facility] Comment on above: Performed By: #### C MP ####[facility] Pxyhzbvpdj5265 [place] [address]Dr. Emelina Navarro ALT [Catalytic activity/Vol] 24 U/L Normal 16-63 [facility] Comment on above: Performed By: #### C MP ####[facility] Pcacilkgcw1313 [place] [address]Dr. Emelina Navarro Anion gap [Moles/Vol] 12.2 mmol/L Normal Th e [facility] Comment on above: Performed By: #### C MP ####[facility] Wxfryekhbo1079 [place] [address]Dr. Emelina Navarro AST [Catalytic activity/Vol] 22 U/L Normal 15-37 [facility] Comment on above: Performed By: #### C MP ####[facility] Vpsojxbjgc5937 [place] [phone]. Emelina Navarro Bilirubin [Mass/Vol] 1.1 mg/dL Critically high 0.2-1.0 [facility] Comment on above: Performed By: #### C MP ####[facility] Sxofmgzfhj9913 [place] [phone]. Emelina Navarro Calcium [Mass/Vol] 9.0 mg/dL Normal 8.5-10.1 [facility] Comment on above: Performed By: #### C MP ####[facility] Bmwrbztvuk[address] [place], [place] [id number]. Emelina Navarro Chloride [Moles/Vol] 99 mmol/L Normal 98-107 [facility] Comment on above: Performed By: #### C MP ####[facility] Getiipryob0026[address] [place], [place] [address]Dr. Emelina Navarro CO2 [Moles/Vol] 30.5 mmol/L Normal 21.0-32.0 The [facility] Comment on above: Performed By: #### C MP ####[facility] Roqvsyrdwm97[address] [place], [place] [id number]. Emelina Navarro Creatinine [Mass/Vol] 1.58 mg/dL Critically high 0.70-1.30 [facility] Comment on above: Performed By: #### C MP ####[facility] Zrzbzvsndn[address] [place], [place] [address]Dr. Emelina Ramon EGFR-AF GABONESE 53 mL/min/1.73m2 Critically low >=60 The [facility] Comment on above: Performed By: #### C MP ####[facility] Qfcqyiehxf34[address] [place], [place] [id number]. Emelina Ramon EGFR-NON AF GABONESE 44 mL/min/1.73m2 Critically low >=60 [facility] Comment on above: Performed By: #### C MP ####[facility] Nuivsnnnqy68[address] [place], [place] [id number]. Emelina Ramon Globulin (S) [Mass/Vol] 3.9 g/dL Normal [facility] Comment on above: Performed By: #### C MP ####[facility] Jayizoreml1636 [place] [phone]. Emelina Navarro Glucose [Mass/Vol] 195 mg/dL Critically high 74-106 [facility] Comment on above: Performed By: #### C MP ####[facility] Yiuzhvxurj1570 [place] [phone]. Emelina Ramon Potassium [Moles/Vol] 3.7 mmol/L Normal 3.5-5.1 [facility] Comment on above: Performed By: #### C MP ####[facility] Fsjnwtzhpl7062 [place] [address]Dr. Emelina Navarro Protein [Mass/Vol] 7.3 g/dL Normal 6.4-8.2 [facility] Comment on above: Performed By: #### C MP ####[facility] Rvijrgbcqs77[address] [place], [place] [address]Dr. Awildanitza Navarro Sodium [Moles/Vol] 138 mmol/L Normal 136-145 [facility] Comment on above: Performed By: #### C MP ####[facility] Ggbhtlrbcs665[address] [place], [place] [address]Dr. Emelina Ramon Urea nitrogen [Mass/Vol] 36.0 mg/dL Critically high 7.0-18.0 [facility] Comment on above: Performed By: #### C MP ####[facility] Ygjiinlhgy1805[address] [place], [place] [address]Dr. Emelina Ramon Urea nitrogen/Creatinine [Mass ratio] 22.8 mg/mg Normal [facility] Comment on above: Performed By: #### C MP ####[facility] Advvxzhevl3209 [place] [phone]. Emelina Ramon CBC AUTO DIFFon 01-06-2023 BASO # 0.0 103/ul Normal 0.0-0.1 [facility] Comment on above: Performed By: #### C BC ####[facility] Mfjwuzybhv3279 [place] [phone]. Awildanitza Navarro Basophils/100 WBC (Bld) 0.3 % Normal 0.2-2.0 [facility] Comment on above: Performed By: #### C BC ####[facility] Hcvupusogy1562 [place] [address]Dr. Emelina Navarro EO # 0.3 103/ul Normal 0.0-0.7 The [facility] Comment on above: Performed By: #### C BC ####[facility] Bynfbnuraq8639 [place] [address]Dr. Emelina Ramon Eosinophils/100 WBC (Bld) 2.2 % Normal 0.9-7.0 [facility] Comment on above: Performed By: #### C BC ####[facility] Veltndyhod356[address] [place], [place] [address]Dr. Awildanitza Navarro Erythrocyte distribution width (RBC) [Ratio] 17.9 % Critically high 11.0-15.0 [facility] Comment on above: Performed By: #### C BC ####[facility] Fosekuecvd437314 [address] [place], [place] [address]Dr. Awildanitza Navarro Hematocrit (Bld) [Volume fraction] 40.9 % Critically low 42.0-54.0 [facility] Comment on above: Performed By: #### C BC ####[facility] Vgpmfraaag4438[address] [place], [place] [address]Dr. Emelina Navarro Hemoglobin (Bld) [Mass/Vol] 12.9 g/dL Critically low 14.0-18.0 The [facility] Comment on above: Performed By: #### C BC ####[facility] Vgfnzxieha6213[address] [place], [place] [address]Dr. Awildanitza Navarro IG # 0.04 10e3/ul Critically high 0.00-0.03 [facility] Comment on above: Performed By: #### C BC ####[facility] Ltszingqmo8185[address] [place], [place] [address]Dr. Emelina Navarro IG % 0.3 % Normal 0.0-0.5 The [facility] Comment on above: Performed By: #### C BC ####[facility] Sjhdpzyqyd658[address] [place], [place] [address]DrWesley Navarro LYMPH # 2.2 103/ul Normal 1.2-3.8 [facility] Comment on above: Performed By: #### C BC ####[facility] Zqpghwzyqb0965 [place] [address]DrWesley Navarro Lymphocytes/100 WBC (Bld) 17.3 % Critically low 20.5-60.0 [facility] Comment on above: Performed By: #### C BC ####[facility] Komavoovsq9315 [place] [address]DrWesley Navarro MANUAL DIFF REQ NO Normal [facility] Comment on above: Performed By: #### C BC ####[facility] Tiflesppmc8211 [place] [address]DrWesley Navarro MCH (RBC) [Entitic mass] 28.5 pg Normal 25.9-34.0 The [facility] Comment on above: Performed By: #### C BC ####[facility] Gaxhtbhfku9401[address] [place], [place] [address]Dr. Emelina Navarro MCHC (RBC) [Mass/Vol] 31.5 g/dL Normal 29.9-35.2 The [facility] Comment on above: Performed By: #### C BC ####[facility] Orfzoafrhz6165[address] [place], [place] [address]DrWesley Navarro MCV (RBC) [Entitic vol] 90.3 fL Normal 80.0-94.0 The [facility] Comment on above: Performed By: #### C BC ####[facility] Vbkdwyfngi8998[address] [place], [place] [address]DrWesley Navarro MONO # 0.9 103/ul Critically high 0.3-0.8 [facility] Comment on above: Performed By: #### C BC ####[facility] Wxdltvrpyq0586[address] [place], [place] [address]DrWesley Navarro Monocytes/100 WBC (Bld) 7.5 % Normal 1.7-12.0 The [facility] Comment on above: Performed By: #### C BC ####[facility] Bdxmllnkti746[address] [place], [place] [address]DrWesley Navarro NEUT # 9.1 103/ul Critically high 1.4-6.5 [facility] Comment on above: Performed By: #### C BC ####[facility] Hlcgvalrbj2360 [place] [address]DrWesley Navarro Neutrophils/100 WBC (Bld) 72.4 % Normal 43.0-75.0 [facility] Comment on above: Performed By: #### C BC ####[facility] Qzclpgfjps9803 [place] [address]DrWesley Navarro Platelet mean volume (Bld) [Entitic vol] 11.3 fL Normal 9.5-13.5 [facility] Comment on above: Performed By: #### C BC ####[facility] Uygxtrnwyl1886 [place] [address]DrWesley Navarro PLT 119 103/ul Critically low 150-450 [facility] Comment on above: Performed By: #### C BC ####[facility] Jwjuuehbsb8065[address] [place], [place] [address]DrWesley Navarro RBC 4.53 106/ul Critically low 4.70-6.10 [facility] Comment on above: Performed By: #### C BC ####[facility] Ugizgifebk6742[address] [place], [place] [address]DrWesley Navarro WBC 12.6 103/ul Critically high 4.0-11.0 [facility] Comment on above: Performed By: #### C BC ####[facility] Qflmoxijzf0380 [place] [address]Dr. Emelina Navarro PROF 14(COMP METB)on 023 Albumin [Mass/Vol] 3.1 g/dL Critically low 3.4-5.0 Th [facility] Comment on above: Performed By: #### C MP ####[facility] Zgpnwxjaqm4530 [place] [address]DrWesley Navarro Albumin/Globulin [Mass ratio] 1.0 {ratio} Normal [facility] Comment on above: Performed By: #### C MP ####[facility] Gdmyrqjqre6940 [place] [address]DrWesley Navarro ALP [Catalytic activity/Vol] 114 U/L Normal 46-116 [facility] Comment on above: Performed By: #### C MP ####[facility] Yorlshqgvx3843 [place] [phone]. Emelina Navarro ALT [Catalytic activity/Vol] 23 U/L Normal 16-63 [facility] Comment on above: Performed By: #### C MP ####[facility] Vgdjfvsfxf8730 [place] [phone]. Emelina Nvaarro Anion gap [Moles/Vol] 13.5 mmol/L Normal Th e [facility] Comment on above: Performed By: #### C MP ####[facility] Ansqpnqxjl4376[address] [place], [place] [address]Dr. Emelina Navarro AST [Catalytic activity/Vol] 24 U/L Normal 15-37 [facility] Comment on above: Performed By: #### C MP ####[facility] Xveytobrsu4437[address] [place], [place] [address]Dr. Emelina Ramon Bilirubin [Mass/Vol] 1.0 mg/dL Normal 0.2-1.0 [facility] Comment on above: Performed By: #### C MP ####[facility] Qtprvbzmem562[address] [place], [place] [address]Dr. Emelina Ramon Calcium [Mass/Vol] 8.5 mg/dL Normal 8.5-10.1 [facility] Comment on above: Performed By: #### C MP ####[facility] Bhedowjxnx896[address] [place], [place] [address]Dr. Emelina Ramon Chloride [Moles/Vol] 102 mmol/L Normal 98-107 [facility] Comment on above: Performed By: #### C MP ####[facility] Agwgilqlfe305[address] [place], [place] [address]Dr. Emelina Ramon CO2 [Moles/Vol] 28.2 mmol/L Normal 21.0-32.0 The [facility] Comment on above: Performed By: #### C MP ####[facility] Kqzzmigzxl16[address] [place], [place] [address]Dr. Emelina Ramon Creatinine [Mass/Vol] 1.42 mg/dL Critically high 0.70-1.30 [facility] Comment on above: Performed By: #### C MP ####[facility] Vplodmjhgo5565 [place] [address]Dr. Emelina Navarro EGFR-AF GABONESE 60 mL/min/1.73m2 Normal >=60 Th [facility] Comment on above: Performed By: #### C MP ####[facility] Ohqbslirkw8966 [place] [address]Dr. Emelina Navarro EGFR-NON AF GABONESE 50 mL/min/1.73m2 Critically low >=60 [facility] Comment on above: Performed By: #### C MP ####[facility] Hjxtzihhjo6448[address] [place], [place] [address]Dr. Emelina Navarro Globulin (S) [Mass/Vol] 3.1 g/dL Normal [facility] Comment on above: Performed By: #### C MP ####[facility] Uhracrcxjr9393 [place] [address]Dr. Emelina Navarro Glucose [Mass/Vol] 121 mg/dL Critically high 74-106 [facility] Comment on above: Performed By: #### C MP ####[facility] Jdjiaiztas9553 [place] [address]Dr. Emelina Navarro Potassium [Moles/Vol] 3.7 mmol/L Normal 3.5-5.1 [facility] Comment on above: Performed By: #### C MP ####[facility] Jrgzawghhm3219 [place] [address]Dr. Emelina Navarro Protein [Mass/Vol] 6.2 g/dL Critically low 6.4-8.2 Th [facility] Comment on above: Performed By: #### C MP ####[facility] Wssjgewpcv5740 [place] [address]Dr. Emelina Navarro Sodium [Moles/Vol] 140 mmol/L Normal 136-145 [facility] Comment on above: Performed By: #### C MP ####[facility] Yyjnrtxyzz0768 [place] [address]Dr. Emelina Navarro Urea nitrogen [Mass/Vol] 33.0 mg/dL Critically high 7.0-18.0 The [facility] Comment on above: Performed By: #### C MP ####[facility] Cfiemyjlgr7479[address] [place], [place] [address]Dr. Emelina Navarro Urea nitrogen/Creatinine [Mass ratio] 23.2 mg/mg Normal The [facility] Comment on above: Performed By: #### C MP ####[facility] Hczxbyytqf9745[address] [place], [place] [address]Dr. Emelina Navarro BNPon 01-05-2023 Natriuretic peptide B (Bld) [Mass/Vol] 7350.0 pg/mL Critically high <=900.0 The [facility] Comment on above: Performed By: #### B WELL TESTER, BMP, HSTROPN ####[facility] Wgswaaiabg6235[address] [place], [place] [address]Dr. Emelina Navarro CBC AUTO DIFFon 01-05-2023 BASO # 0.0 103/ul Normal 0.0-0.1 [facility] Comment on above: Performed By: #### C BC ####[facility] Ibcwmjnudh023[address] [place], [place] [address]Dr. Emelina Navarro Basophils/100 WBC (Bld) 0.3 % Normal 0.2-2.0 The [facility] Comment on above: Performed By: #### C BC ####[facility] Xznmawlpuz1602[address] [place], [place] [address]Dr. Emelina Navarro EO # 0.3 103/ul Normal 0.0-0.7 The [facility] Comment on above: Performed By: #### C BC ####[facility] Rzqfaqrfrv7195[address] [place], [place] [address]Dr. Emelina Navarro Eosinophils/100 WBC (Bld) 1.9 % Normal 0.9-7.0 The [facility] Comment on above: Performed By: #### C BC ####[facility] Bdugoenmau479[address] [place], [place] [address]Dr. Emelina Navarro Erythrocyte distribution width (RBC) [Ratio] 17.7 % Critically high 11.0-15.0 The [facility] Comment on above: Performed By: #### C BC ####[facility] Rwzrsbmxiu7340 [place] [address]Dr. Emelina Navarro Hematocrit (Bld) [Volume fraction] 42.9 % Normal 42.0-54.0 [facility] Comment on above: Performed By: #### C BC ####[facility] Siguesmetk5297 [place] [address]Dr. Emelina Navarro Hemoglobin (Bld) [Mass/Vol] 13.8 g/dL Critically low 14.0-18.0 The [facility] Comment on above: Performed By: #### C BC ####[facility] Fcqhazmxie5628[address] [place], [place] [address]Dr. Emelina Navarro IG # 0.07 10e3/ul Critically high 0.00-0.03 [facility] Comment on above: Performed By: #### C BC ####[facility] Sopsgscrfk3355[address] [place], [place] [address]Dr. Emelina Navarro IG % 0.4 % Normal 0.0-0.5 [facility] Comment on above: Performed By: #### C BC ####[facility] Qlshkkvvsd864[address] [place], [place] [address]Dr. Emelina Navarro LYMPH # 1.8 103/ul Normal 1.2-3.8 [facility] Comment on above: Performed By: #### C BC ####[facility] Lgnxnsbzyj78[address] [place], [place] [address]Dr. Emelina Navarro Lymphocytes/100 WBC (Bld) 11.6 % Critically low 20.5-60.0 The [facility] Comment on above: Performed By: #### C BC ####[facility] Gyfbjccnky1685[address] [place], [place] [address]Dr. Emelina Navarro MANUAL DIFF REQ NO Normal [facility] Comment on above: Performed By: #### C BC ####[facility] Peibtpejbt75[address] [place], [place] [address]Dr. Emelina Navarro MCH (RBC) [Entitic mass] 28.5 pg Normal 25.9-34.0 The [facility] Comment on above: Performed By: #### C BC ####[facility] Slftnzjzgk5752 [place] [phone]. Emelina Navarro MCHC (RBC) [Mass/Vol] 32.2 g/dL Normal 29.9-35.2 The [facility] Comment on above: Performed By: #### C BC ####[facility] Tnjqcxglbm7505 [place] [phone]. Emelina Ramon MCV (RBC) [Entitic vol] 88.5 fL Normal 80.0-94.0 The [facility] Comment on above: Performed By: #### C BC ####[facility] Urwfrxttgj5255 [place] [phone]. Emelina Ramon MONO # 1.1 103/ul Critically high 0.3-0.8 [facility] Comment on above: Performed By: #### C BC ####[facility] Ksjwaaxhbv32[address] [place], [place] [address]Dr. Emelina Navarro Monocytes/100 WBC (Bld) 6.9 % Normal 1.7-12.0 The [facility] Comment on above: Performed By: #### C BC ####[facility] Kdafbljtpp[address] [place], [place] [address]Dr. Emelina Navarro NEUT # 12.4 103/ul Critically high 1.4-6.5 The [facility] Comment on above: Performed By: #### C BC ####[facility] Rielsxahnc1658[address] [place], [place] [address]Dr. Emelina Navarro Neutrophils/100 WBC (Bld) 78.9 % Critically high 43.0-75.0 The [facility] Comment on above: Performed By: #### C BC ####[facility] Lhcypxgzjv[address] [place], [place] [address]Dr. Emelina Navarro Platelet mean volume (Bld) [Entitic vol] 11.5 fL Normal 9.5-13.5 The [facility] Comment on above: Performed By: #### C BC ####[facility] Qqdicdawgj7[address] [place], [place] [address]Dr. Emelina Navarro PLT 142 103/ul Critically low 150-450 The [facility] Comment on above: Performed By: #### C BC ####[facility] Uihpeodkog5678 [place], [place] [address]Lb. Emelina Navarro RBC 4.85 106/ul Normal 4.70-6.10 [facility] Comment on above: Performed By: #### C BC ####[facility] Xdjgappmxt5549 [place], [place] [address]Ry. Emelina Navarro WBC 15.8 103/ul Critically high 4.0-11.0 [facility] Comment on above: Performed By: #### C BC ####[facility] Malhngrfit1125 [place] [phone]. Emelina Navarro CULTURE BLOODon 01-05-2023 Microscopic examination of blood, culture Culture Observations: NO GROWTH AT 5 DAYS. Normal [facility] Comment on above: Performed By: #### B LDCX2 ####[facility] Omyhclrdsh7685 [place] [phone]. Emelina Navarro Microscopic examination of blood, culture Culture Observations: NO GROWTH AT 5 DAYS. Normal [facility] Comment on above: Performed By: #### B LDCX1 ####[facility] Ytoagduxsv9181 [place] [phone]. Emelina Navarro Covid-19 PCR ([facility])on 12-20 SARS-CoV-2 (COVID-19) RNA RADHA+probe Ql (Unsp spec) Not detected Normal NOT DETECTED The [facility] Comment on above: Result Comment: When diagnostic testing is negative, the possibility of a false negative should be considered inthe context of a patient's recent exposures and the presence of clinical signs and symptomsconsistent with SARS-CoV-2.This test is not yet approved or cleared by the [place] FDA. When there are no FDA-approved or cleared tests available, and other criteria are met, FDA can make tests available under an emergency access mechanism called an Emergency Use Authorization (EUA). The EUA for this test is supported by the [employer] Member of Health and Human Service's declaration that circumstances exist to justify the emergency use of in vitro diagnostics for the detection and/or diagnosis of the virus that causes COVID-19. This EUA will remain in effect for the duration of the COVID-19 declaration justifying emergency of IVDs, unless it is terminated or revoked by the FDA (after which the test may no longer be used). Performed By: #### C VDTBH ####[facility] Pcdtbtsssr1830 [place] [address]Dr. Emelina Navarro DIGOXINon 01-05-2023 DIG 0.8 ng/mL Critically low 0.9-2.0 [facility] Comment on above: Performed By: #### D IG ####[facility] [facility] Icapgbefnr[address] [place], [place] [address]Dr. Emelina Navarro PROF CHEM 8 (BAS METB)on Anion gap [Moles/Vol] 12.7 mmol/L Normal e [facility] Comment on above: Performed By: #### B WELL TESTER, BMP, HSTROPN ####[facility] Djceeqvxzx8258[address] [place], [place] [address]Dr. Emelina Navarro Calcium [Mass/Vol] 8.8 mg/dL Normal 8.5-10.1 [facility] Comment on above: Performed By: #### B WELL TESTER, BMP, HSTROPN ####[facility] Ndsxwrjshz[address] [place], [place] [address]Dr. Emelina Navarro Chloride [Moles/Vol] 99 mmol/L Normal 98-107 [facility] Comment on above: Performed By: #### B WELL TESTER, BMP, HSTROPN ####[facility] Nntxtmuhke39[address] [place], [place] [address]Dr. Emelina Navraro CO2 [Moles/Vol] 28.2 mmol/L Normal 21.0-32.0 [facility] Comment on above: Performed By: #### B WELL TESTER, BMP, HSTROPN ####[facility] Btuuxlzaqp08[address] [place], [place] [address]Dr. Emelina Navarro Creatinine [Mass/Vol] 1.64 mg/dL Critically high 0.70-1.30 [facility] Comment on above: Performed By: #### B WELL TESTER, BMP, HSTROPN ####[facility] Sttgflrhzo[address] [place], [place] [address]Dr. Emelina Navarro EGFR-AF GABONESE 51 mL/min/1.73m2 Critically low >=60 [facility] Comment on above: Performed By: #### B WELL TESTER, BMP, HSTROPN ####[facility] Bdttpxdiji8[address] [place] [address]Dr. Emelina Navarro EGFR-NON AF GABONESE 42 mL/min/1.73m2 Critically low >=60 [facility] Comment on above: Performed By: #### B WELL TESTER, BMP, HSTROPN ####[facility] Cynxmknffk5[address] [place] [address]Dr. Emelina Navarro Glucose [Mass/Vol] 203 mg/dL Critically high 74-106 [facility] Comment on above: Performed By: #### B WELL TESTER, BMP, HSTROPN ####[facility] Bvkzlmzwpa34[address] [place], [place] [address]Dr. Emelina Navarro Potassium [Moles/Vol] 3.9 mmol/L Normal 3.5-5.1 [facility] Comment on above: Performed By: #### B WELL TESTER, BMP, HSTROPN ####[facility] Qmuovcxbpm8172[address] [place], [place] [address]Dr. Emelina Navarro Sodium [Moles/Vol] 136 mmol/L Normal 136-145 [facility] Comment on above: Performed By: #### B WELL TESTER, BMP, HSTROPN ####[facility] Xthrwfwkjp01[address] [place], [place] [address]Dr. Emelina Navarro Urea nitrogen [Mass/Vol] 32.0 mg/dL Critically high 7.0-18.0 [facility] Comment on above: Performed By: #### B WELL TESTER, BMP, HSTROPN ####[facility] Esgwgylskc[address] [place] [address]Dr. Emelina Navarro Urea nitrogen/Creatinine [Mass ratio] 19.5 mg/mg Normal [facility] Comment on above: Performed By: #### B WELL TESTER, BMP, HSTROPN ####[facility] Zaghxawzso[address] [place], [place] [address]Dr. Emelina Navarro PROTIMEon 01-05-2023 INR Coag (PPP) [Relative time] 2.53 {INR} Normal [facility] Comment on above: Performed By: #### P T, PTT ####[facility] Tipirfhcjr[address] [place] [address]Dr. Emelina Navarro INR GUIDELINES SEE BELOW Normal [facility] Comment on above: Result Comment: WENDY RED INR: 2.0 - 3.0 CONDITIONS NOT LISTED BELOW 2.5 - 3.5 FOR PROSTHETIC HEART VALVE REPLACEMENT 2.5 - 3.5 RECURRENT THROMBOSIS Performed By: #### P T, PTT ####[facility] Wawqclwmab7[address] [place] [address]Dr. Emelina Navarro PT Coag (PPP) [Time] 25.4 s Critically high 9.0-11.6 [facility] Comment on above: Performed By: #### P T, PTT ####[facility] Esyztphqeg[address] [place], [place] [address]Dr. Emelina Navarro PTTon 01-05-2023 aPTT Coag (Bld) [Time] 37.7 s Critically high 22.3-36.2 [facility] Comment on above: Performed By: #### P T, PTT ####[facility] Opjuzfkgwm2706[address] [place], [place] [address]Dr. Emelina Navarro TROPONIN, HIGH SENSITIVITYon 01-05-2023 HSTROP 52.4 pg/mL Normal 4.0-76.1 [facility] Comment on above: Result Comment: CUT- OFF POINTS HAVE BEEN ESTABLISHED BASED ON THE FOURTH UNIVERSAL DEFINITIONS OF MYOCARDIALINFARCTION. THE UPPER REFERENCE LIMIT (URL) OF TROPONIN, DEFINED THE 99TH PERCENTILE OFcTnI DISTRIBUTION IN A REFERENCE POPULATION, HAS BEEN CONFIRMED THE DECISION THRESHOLDFOR ND DIAGNOSIS. Performed By: #### B WELL TESTER, BMP, HSTROPN ####[facility] Rfqohjtqyb4[address] [place], [place] [address]Dr. Emelina Navarro XR CHEST 1 Von 01-05-2023 XR CHEST 1 V Normal [facility] BNPon 01-02-2023 Natriuretic peptide B (Bld) [Mass/Vol] 5653.0 pg/mL Critically high <=900.0 [facility] Comment on above: Performed By: #### B WELL TESTER, BMP ####[facility] Tbnyjmhsug2919 [place] [id number]. Emelina Navarro CBC AUTO DIFFon 01-02-2023 BASO # 0.0 103/ul Normal 0.0-0.1 [facility] Comment on above: Performed By: #### C BC ####[facility] Kdssmmhuym9844 [place] [phone]. Emelina Ramon Basophils/100 WBC (Bld) 0.2 % Normal 0.2-2.0 [facility] Comment on above: Performed By: #### C BC ####[facility] Jscwnhgcfi58[address] [place], [place] [address]Dr. Emelina Navarro EO # 0.3 103/ul Normal 0.0-0.7 [facility] Comment on above: Performed By: #### C BC ####[facility] Aopbfjqgjx5573[address] [place], [place] [address]Dr. Awildanitza Navarro Eosinophils/100 WBC (Bld) 2.1 % Normal 0.9-7.0 [facility] Comment on above: Performed By: #### C BC ####[facility] Ctllcylwvl6716[address] [place], [place] [address]Dr. Emelina Navarro Erythrocyte distribution width (RBC) [Ratio] 17.9 % Critically high 11.0-15.0 [facility] Comment on above: Performed By: #### C BC ####[facility] Ktozviodll[address] [place], [place] [address]Dr. Emelina Navarro Hematocrit (Bld) [Volume fraction] 42.1 % Normal 42.0-54.0 [facility] Comment on above: Performed By: #### C BC ####[facility] Cujklkoglh8963[address] [place], [place] [address]Dr. Emelina Navarro Hemoglobin (Bld) [Mass/Vol] 13.8 g/dL Critically low 14.0-18.0 [facility] Comment on above: Performed By: #### C BC ####[facility] Flseveljgy2139[address] [place], [place] [address]Dr. Emelina Navarro IG # 0.06 10e3/ul Critically high 0.00-0.03 [facility] Comment on above: Performed By: #### C BC ####[facility] Exbjceoidm1224 [place] [phone]. Emelina Navarro IG % 0.5 % Normal 0.0-0.5 [facility] Comment on above: Performed By: #### C BC ####[facility] Wpyaqwnqyt7773 [place] [phone] Navarro LYMPH # 1.7 103/ul Normal 1.2-3.8 [facility] Comment on above: Performed By: #### C BC ####[facility] Xbnjbbmjhd2322 [place] [phone] Navarro Lymphocytes/100 WBC (Bld) 13.1 % Critically low 20.5-60.0 [facility] Comment on above: Performed By: #### C BC ####[facility] Wvgdonbtzg8335 [place] [address]DrWesley Navarro MANUAL DIFF REQ NO Normal [facility] Comment on above: Performed By: #### C BC ####[facility] Zbidbcamhv5462 [place] [phone]. Awildanitza Navarro MCH (RBC) [Entitic mass] 28.9 pg Normal 25.9-34.0 [facility] Comment on above: Performed By: #### C BC ####[facility] Asgpclgery1772 [place] [phone]. Emelina Navarro MCHC (RBC) [Mass/Vol] 32.8 g/dL Normal 29.9-35.2 [facility] Comment on above: Performed By: #### C BC ####[facility] Kybjdwtaos8860 [place] [phone] Navarro MCV (RBC) [Entitic vol] 88.3 fL Normal 80.0-94.0 [facility] Comment on above: Performed By: #### C BC ####[facility] Kdvtvbsqkf6656 [place] [phone] Navarro MONO # 0.7 103/ul Normal 0.3-0.8 [facility] Comment on above: Performed By: #### C BC ####[facility] Hcdcjodhkd1277 [place] [address]Dr. Emelina Navarro Monocytes/100 WBC (Bld) 5.3 % Normal 1.7-12.0 [facility] Comment on above: Performed By: #### C BC ####[facility] Ehfnpzleez0748 [place] [phone]. Emelina Navarro NEUT # 10.1 103/ul Critically high 1.4-6.5 [facility] Comment on above: Performed By: #### C BC ####[facility] Bmzloxghjc8787 [place] [address]Dr. Emelina Navarro Neutrophils/100 WBC (Bld) 78.8 % Critically high 43.0-75.0 [facility] Comment on above: Performed By: #### C BC ####[facility] Iidbqjumaj6910 [place] [address]Dr. Emelina Navarro Platelet mean volume (Bld) [Entitic vol] 10.8 fL Normal 9.5-13.5 [facility] Comment on above: Performed By: #### C BC ####[facility] Dbqzlbkizd[address] [place], [place] [address]Dr. Emelina Navarro PLT 143 103/ul Critically low 150-450 [facility] Comment on above: Performed By: #### C BC ####[facility] Rymluvvgdi1703 [place] [address]Dr. Emelina Navarro RBC 4.77 106/ul Normal 4.70-6.10 [facility] Comment on above: Performed By: #### C BC ####[facility] Mufnimjczy3545 [place] [phone]. Emelina Navarro WBC 12.8 103/ul Critically high 4.0-11.0 [facility] Comment on above: Performed By: #### C BC ####[facility] Aomqcamngz6469 [place] [address]DrWesley Awildanitza Navarro PROF CHEM 8 (BAS METB)on Anion gap [Moles/Vol] 12.2 mmol/L Normal Th [facility] Comment on above: Performed By: #### B WELL TESTER, BMP ####[facility] Fyortafbjr7806[address] [place], [place] [address]Dr. Eemlina Navarro Calcium [Mass/Vol] 8.6 mg/dL Normal 8.5-10.1 [facility] Comment on above: Performed By: #### B WELL TESTER, BMP ####[facility] Pwqywiucsf8[address] [place], [place] [address]Dr. Emelina Navarro Chloride [Moles/Vol] 102 mmol/L Normal 98-107 [facility] Comment on above: Performed By: #### B WELL TESTER, BMP ####[facility] Qzlqthozpb5432[address] [place], [place] [address]Dr. Emelina Navarro CO2 [Moles/Vol] 26.4 mmol/L Normal 21.0-32.0 [facility] Comment on above: Performed By: #### B WELL TESTER, BMP ####[facility] Ljlrlhggua9659[address] [place], [place] [address]Dr. Emelina Navarro Creatinine [Mass/Vol] 1.56 mg/dL Critically high 0.70-1.30 [facility] Comment on above: Performed By: #### B WELL TESTER, BMP ####[facility] Brckiqgjsg9317[address] [place], [place] [address]Dr. Awiladnitza Navarro EGFR-AF GABONESE 54 mL/min/1.73m2 Critically low >=60 [facility] Comment on above: Performed By: #### B WELL TESTER, BMP ####[facility] Cdbtkzqimk2263[address] [place], [place] [address]Dr. Awildanitza Navarro EGFR-NON AF GABONESE 44 mL/min/1.73m2 Critically low >=60 [facility] Comment on above: Performed By: #### B WELL TESTER, BMP ####[facility] Ozgofemsyp1037[address] [place], [place] [address]Dr. Awildanitza Navarro Glucose [Mass/Vol] 211 mg/dL Critically high 74-106 [facility] Comment on above: Performed By: #### B WELL TESTER, BMP ####[facility] Wktvocyczv6214[address] [place], [place] [address]Dr. Emelina Navarro Potassium [Moles/Vol] 3.6 mmol/L Normal 3.5-5.1 [facility] Comment on above: Performed By: #### B WELL TESTER, BMP ####[facility] Xpmrqieuxg3040 [place] [address]Dr. Emelina Navarro Sodium [Moles/Vol] 137 mmol/L Normal 136-145 [facility] Comment on above: Performed By: #### B WELL TESTER, BMP ####[facility] Nimeyerjho5596 [place] [address]Dr. Emelina Navarro Urea nitrogen [Mass/Vol] 42.0 mg/dL Critically high 7.0-18.0 [facility] Comment on above: Performed By: #### B WELL TESTER, BMP ####[facility] Aotjlcchoe817[address] [place], [place] [address]Dr. Awildanitza Navarro Urea nitrogen/Creatinine [Mass ratio] 26.9 mg/mg Normal [facility] Comment on above: Performed By: #### B WELL TESTER, BMP ####[facility] Xnzuatbpxt5109[address] [place], [place] [address]Dr. Emelina Navarro Anion gap [Moles/Vol] 12.3 mmol/L Normal [facility] Comment on above: Performed By: #### B MP ####[facility] Ywnngjmmod2447[address] [place], [place] [address]Dr. Emelina Ramon Calcium [Mass/Vol] 8.4 mg/dL Critically low 8.5-10.1 [facility] Comment on above: Performed By: #### B MP ####[facility] Pxhbqgstxk5534[address] [place], [place] [address]Dr. Awildanitza Navarro Chloride [Moles/Vol] 101 mmol/L Normal 98-107 [facility] Comment on above: Performed By: #### B MP ####[facility] Nbowhgxypd4964[address] [place], [place] [address]Dr. Emelina Navarro CO2 [Moles/Vol] 27.4 mmol/L Normal 21.0-32.0 [facility] Comment on above: Performed By: #### B MP ####[facility] Oqiaalfxmp5557 [place] [address]Dr. Emelina Navarro Creatinine [Mass/Vol] 1.54 mg/dL Critically high 0.70-1.30 [facility] Comment on above: Performed By: #### B MP ####[facility] Kehlzgzhwy8498 [place] [phone]. Emelina Navarro EGFR-AF GABONESE 55 mL/min/1.73m2 Critically low >=60 [facility] Comment on above: Performed By: #### B MP ####[facility] Byjountwri6165 [place] [phone]. Emelina Navarro EGFR-NON AF GABONESE 45 mL/min/1.73m2 Critically low >=60 [facility] Comment on above: Performed By: #### B MP ####[facility] Wskhfrtrns10[address] [place], [place] [address]Dr. Emelina Navarro Glucose [Mass/Vol] 115 mg/dL Critically high 74-106 [facility] Comment on above: Performed By: #### B MP ####[facility] Xmavuahpyk[address] [place], [place] [id number]. Emelina Navarro Potassium [Moles/Vol] 3.7 mmol/L Normal 3.5-5.1 [facility] Comment on above: Performed By: #### B MP ####[facility] Cxnkoujjlf44[address] [place], [place] [address]Dr. Emelina Navarro Sodium [Moles/Vol] 137 mmol/L Normal 136-145 [facility] Comment on above: Performed By: #### B MP ####[facility] Fqrgcscspo5895 [place] [address]Dr. Emelina Navarro Urea nitrogen [Mass/Vol] 40.0 mg/dL Critically high 7.0-18.0 [facility] Comment on above: Performed By: #### B MP ####[facility] Otlfsdvnot3278[address] [place], [place] [address]Dr. Emelina Navarro Urea nitrogen/Creatinine [Mass ratio] 26.0 mg/mg Normal [facility] Comment on above: Performed By: #### B MP ####[facility] Pcvhjxfoub8084 [place] [address]Dr. Emelina Navarro XR CHEST 1 Von 01-02-2023 XR CHEST 1 V Normal [facility] BNPon 12-26-2022 Natriuretic peptide B (Bld) [Mass/Vol] 9102.0 pg/mL Critically high <=900.0 [facility] Comment on above: Performed By: #### B WELL TESTER ####[facility] Rfqxvrpkpl2401[address] [place], [place] [address]DrWesley Navarro PROF CHEM 8 (BAS METB)on Anion gap [Moles/Vol] 14.4 mmol/L Normal [facility] Comment on above: Performed By: #### B MP ####[facility] Iqthhgcsng8613[address] [place], [place] [address]Dr. Emelina Navarro Calcium [Mass/Vol] 8.6 mg/dL Normal 8.5-10.1 [facility] Comment on above: Performed By: #### B MP ####[facility] Ynmlabbzme5274[address] [place], [place] [address]DrWesley Navarro Chloride [Moles/Vol] 101 mmol/L Normal 98-107 [facility] Comment on above: Performed By: #### B MP ####[facility] Fmbrcsvuzo0837[address] [place], [place] [address]DrWesley Navarro CO2 [Moles/Vol] 27.2 mmol/L Normal 21.0-32.0 [facility] Comment on above: Performed By: #### B MP ####[facility] Bsieqmyfcr9[address] [place], [place] [address]DrWesley Navarro Creatinine [Mass/Vol] 1.69 mg/dL Critically high 0.70-1.30 [facility] Comment on above: Performed By: #### B MP ####[facility] Wixtgvkcxa9025[address] [place], [place] [address]DrWesley Navarro EGFR-AF GABONESE 49 mL/min/1.73m2 Critically low >=60 [facility] Comment on above: Performed By: #### B MP ####[facility] Pzebkpeiqo[address] [place], [place] [address]DrWesley Navarro EGFR-NON AF GABONESE 41 mL/min/1.73m2 Critically low >=60 [facility] Comment on above: Performed By: #### B MP ####[facility] Zghcfdfmfr2432 [place] [address]Dr. Emelina Navarro Glucose [Mass/Vol] 163 mg/dL Critically high 74-106 [facility] Comment on above: Performed By: #### B MP ####[facility] Ikttsmnujc6225 [place] [address]Dr. Emelina Navarro Potassium [Moles/Vol] 3.6 mmol/L Normal 3.5-5.1 [facility] Comment on above: Performed By: #### B MP ####[facility] Jfgrugwyra5843 [place] [address]Dr. Emelina Ramon Sodium [Moles/Vol] 139 mmol/L Normal 136-145 [facility] Comment on above: Performed By: #### B MP ####[facility] Bvlbqsdqss9690 [place] [address]Dr. Emelina Navarro Urea nitrogen [Mass/Vol] 36.0 mg/dL Critically high 7.0-18.0 [facility] Comment on above: Performed By: #### B MP ####[facility] Ngcxypypoi1889 [place] [address]Dr. Emelina Navarro Urea nitrogen/Creatinine [Mass ratio] 21.3 mg/mg Normal [facility] Comment on above: Performed By: #### B MP ####[facility] Rowulcmckk2787 [place] [address]Dr. Emelina Navarro 37on 12-11-2022 37 Normal [facility] Albumin [Mass/volume] in Ser um or PlasmaOrdered By: Ethan Cummings on 12-02-2022 Albumin [Mass/Vol] 3.9 g/dL 3.2-5.5 [facility] Basophils Auto (Bld) [#/Vol] Ordered By: Ethan Cummings on 12-02-2022 Basophils (Bld) [#/Vol] 0.1 10*3/uL 0.0-0.2 [facility] Basophils/100 WBC Auto (Bld) Ordered By: Ethan Cummings on 12-02-2022 Basophils/100 WBC (Bld) 0.7 % . [facility] CT biopsyOrdered By: Ethan Cummings on 12-02-2022 Transferrin [Mass/Vol] 240 mg/dL 180-380 [facility] Complete Blood Count Auto Di ffon 12-02-2022 Basophils (Bld) [#/Vol] 0.1 10*3/uL Normal 0.0-0.2 [facility] Comment on above: Result Comment: PERF ORMED BY: [place] [address] PATHOLOGIST [employer] RAFA BYRNE M.D. Performed By: #### F E and TIBC, [place], CBC, CMP, [id number] #### [address] Basophils/100 WBC (Bld) 0.7 % Normal . [facility] Comment on above: Performed By: #### F E and TIBC, [place], CBC, CMP, [id number] #### [address] Eosinophils (Bld) [#/Vol] 0.4 10*3/uL Normal 0.0-0.45 [facility] Comment on above: Performed By: #### F E and TIBC, [place], CBC, CMP, [id number] #### [address] Eosinophils/100 WBC (Bld) 3.5 % Normal . [facility] Comment on above: Performed By: #### F E and TIBC, [place], CBC, CMP, [id number] #### [address] Erythrocyte distribution width (RBC) [Ratio] 19.6 % High 12.0-14.8 [facility] Comment on above: Performed By: #### F E and TIBC, [place], CBC, CMP, [id number] #### [place] [address] Hematocrit (Bld) [Volume fraction] 47.4 % Normal 38.8-50.0 [facility] Comment on above: Performed By: #### F E and TIBC, [place], CBC, CMP, [id number] #### [address] Hemoglobin (Bld) [Mass/Vol] 15.3 g/dL Normal 13.0-17.0 [facility] Comment on above: Performed By: #### F E and TIBC, [place], CBC, CMP, [id number] #### [address] Lymphocytes (Bld) [#/Vol] 2.4 10*3/uL Normal 1.00-4.8 [facility] Comment on above: Performed By: #### F E and TIBC, [place], CBC, CMP, [id number] #### [address] Lymphocytes/100 WBC (Bld) 20.5 % Normal . [facility] Comment on above: Performed By: #### F E and TIBC, [place], CBC, CMP, [id number] #### [address] MCH (RBC) [Entitic mass] 28.3 pg Normal 27.5-35.2 [facility] Comment on above: Performed By: #### F E and TIBC, [place], CBC, CMP, [id number] #### [address] MCV (RBC) [Entitic vol] 87.5 fL Normal 83.5-101 [facility] Comment on above: Performed By: #### F E and TIBC, [place], CBC, CMP, [id number] #### [address] Mean Corpuscular HGB Conc 32.3 g/dL Low 32.5-35.6 [facility] Comment on above: Performed By: #### F E and TIBC, [place], CBC, CMP, [id number] #### [address] Monocytes (Bld) [#/Vol] 1.0 10*3/uL High 0.0-0.8 [facility] Comment on above: Performed By: #### F E and TIBC, [place], CBC, CMP, [id number] #### [address] Monocytes/100 WBC (Bld) 8.2 % Normal . [facility] Comment on above: Performed By: #### F E and TIBC, [place], CBC, CMP, [id number] #### [address] Neutrophils (Bld) [#/Vol] 7.9 10*3/uL High 1.8-7.7 [facility] Comment on above: Performed By: #### F E and TIBC, [place], CBC, CMP, [id number] #### [address] Neutrophils/100 WBC (Bld) 67.1 % Normal . [facility] Comment on above: Performed By: #### F E and TIBC, [place], CBC, CMP, [id number] #### [address] NRBC% 0.1 /100{WBC} Normal 0-0.5 [facility] Comment on above: Performed By: #### F E and TIBC, [place], CBC, CMP, [id number] #### [address] Platelet mean volume (Bld) [Entitic vol] 8.5 fL Normal 6.6-10.1 [facility] Comment on above: Performed By: #### F E and TIBC, [place], CBC, CMP, [id number] #### [place] [address] [place] Platelets (Bld) [#/Vol] 214 10*3/uL Normal 150-450 [facility] Comment on above: Performed By: #### F E and TIBC, [place], CBC, CMP, [id number] #### [facility] [address] RBC (Bld) [#/Vol] 5.41 10*6/uL Normal 3.90-5.60 [facility] Comment on above: Performed By: #### F E and TIBC, [place], CBC, CMP, [id number] #### [address] WBC (Bld) [#/Vol] 11.8 10*3/uL High 4.1-10.5 [facility] Comment on above: Performed By: #### F E and TIBC, [place], CBC, CMP, [id number] #### [address] Comprehensive Metabolic Pane bola 12-02-2022 Albumin [Mass/Vol] 3.9 g/dL Normal 3.2-5.5 [facility] Comment on above: Order Comment: FASTI NG Performed By: #### F E and TIBC, [place], CBC, CMP, [id number] #### [address] Albumin/Globulin [Mass ratio] 1.1 {ratio} Normal [facility] Comment on above: Order Comment: FASTI NG Performed By: #### F E and TIBC, [place], CBC, CMP, [id number] #### [address] ALP [Catalytic activity/Vol] 101 U/L High 32-92 [facility] Comment on above: Order Comment: FASTI NG Performed By: #### F E and TIBC, [place], CBC, CMP, [id number] #### [address] ALT [Catalytic activity/Vol] 19 U/L Normal 10-60 [facility] Comment on above: Order Comment: FASTI NG Performed By: #### F E and TIBC, [place], CBC, CMP, [id number] #### [facility] [address] Anion gap [Moles/Vol] 13.2 mmol/L Normal 6.0-15.0 [facility] Comment on above: Order Comment: FASTI NG Performed By: #### F E and TIBC, [place], CBC, CMP, [id number] #### [facility] [address] AST [Catalytic activity/Vol] 32 U/L Normal 10-42 [facility] Comment on above: Order Comment: FASTI NG Performed By: #### F E and TIBC, [place], CBC, CMP, [id number] #### [address] Bilirubin [Mass/Vol] 1.5 mg/dL High 0.3-1.2 [facility] Comment on above: Order Comment: FASTI NG Result Comment: Samp les from patients who have taken Naproxen have shown spurious elevation in Total Bilirubin levels. A metabolite of Naproxen, O-desmethylnaproxen, has been shown to interfere with the Jendrassik-Grof method for measuring Total Bilirubin. Performed By: #### F E and TIBC, [place], CBC, CMP, [id number] #### [address] Calcium [Mass/Vol] 9.5 mg/dL Normal 8.2-10.2 [facility] Comment on above: Order Comment: FASTI NG Performed By: #### F E and TIBC, [place], CBC, CMP, [id number] #### [facility] [address] Chloride [Moles/Vol] 101 mmol/L Normal 95-114 [facility] Comment on above: Order Comment: FASTI NG Performed By: #### F E and TIBC, [place], CBC, CMP, [id number] #### [facility] [address] CO2 [Moles/Vol] 30.1 mmol/L High 22.0-30.0 [facility] Comment on above: Order Comment: FASTI NG Performed By: #### F E and TIBC, [place], CBC, CMP, [id number] #### [facility] [address] Creatinine [Mass/Vol] 1.58 mg/dL High 0.64-1.27 [facility] Comment on above: Order Comment: FASTI NG Performed By: #### F E and TIBC, [place], CBC, CMP, [id number] #### [facility] [address] Creatinine Clr Calc Pharmacy 53.88 [facility] Comment on above: Order Comment: FASTI NG Performed By: #### F E and TIBC, [place], CBC, CMP, [id number] #### [address] Estimated GFR ( Susana 53 [facility] Comment on above: Order Comment: FASTI NG Result Comment: GFR estimated reference range: According to KDOQI guidelines, <60 ml/min/1.73m2 is sufficient to diagnose a patient with chronic kidney disease. Performed By: #### F E and TIBC, [place], CBC, CMP, [id number] #### [facility] [address] Estimated GFR (Non- Am 44 [facility] Comment on above: Order Comment: FASTI NG Performed By: #### F E and TIBC, [place], CBC, CMP, [id number] #### [facility] [address] Globulin (S) [Mass/Vol] 3.7 g/dL [facility] Comment on above: Order Comment: FASTI NG Performed By: #### F E and TIBC, [place], CBC, CMP, [id number] #### [facility] [address] Glucose [Mass/Vol] 150 mg/dL High 70-100 [facility] Comment on above: Order Comment: FASTI NG Result Comment: Ijeoma osorio Glucose Reference Range is dependent on time and content of last meal. Glucose of more than 200 mg/dL in a nonstressed, ambulatory subject supports the diagnosis of Diabetes Mellitus. ADA recommended reference range Performed By: #### F E and TIBC, [place], CBC, CMP, [id number] #### [facility] [address] Potassium [Moles/Vol] 4.3 mmol/L Normal 3.5-5.1 [facility] Comment on above: Order Comment: FASTI NG Performed By: #### F E and TIBC, [place], CBC, CMP, [id number] #### [facility] [address] Protein [Mass/Vol] 7.6 g/dL Normal 6.1-7.9 [facility] Comment on above: Order Comment: FASTI NG Performed By: #### F E and TIBC, [place], CBC, CMP, [id number] #### [facility] [address] Sodium [Moles/Vol] 140 mmol/L Normal 136-146 [facility] Comment on above: Order Comment: FASTI NG Performed By: #### F E and TIBC, [place], CBC, CMP, [id number] #### [facility] [address] [place] [address] [place] Urea nitrogen [Mass/Vol] 22 mg/dL Normal 9-23 [facility] Comment on above: Order Comment: FASTI NG Performed By: #### F E and TIBC, [place], CBC, CMP, [id number] #### [place] [address] [place] Creatinine and Glomerular fi ltration rate.predicted panel (S/P/Bld)Ordered By: Ethan Cummings on 12-02-2022 Creatinine [Mass/Vol] 1.58 mg/dL 0.64-1.27 [facility] Eosinophils Auto (Bld) [#/Vo l]Ordered By: Ethan Cummings on 12-02-2022 Eosinophils (Bld) [#/Vol] 0.4 10*3/uL 0.0-0.45 [facility] Eosinophils/100 WBC Auto (Bl d)Ordered By: Ethan Cummings on 12-02-2022 Eosinophils/100 WBC (Bld) 3.5 % . [facility] Erythrocyte distribution wid th Auto (RBC) [Ratio]Ordered By: Ethan Cummings on 12-02-2022 Erythrocyte distribution width (RBC) [Ratio] 19.6 % 12.0-14.8 [facility] Estimated glomerular filtrat ion rate (GFR) non- AmericanOrdered By: Ethan Cummings on 12-02-2022 GFR/1.73 sq M.predicted among non-blacks MDRD (S/P/Bld) [Vol rate/Area] 44 mL/Min [facility] Ferritinon 12-02-2022 Ferritin [Mass/Vol] 85.7 ng/mL Normal 23.9-336.2 [facility] Comment on above: Order Comment: Comme nt add on if possible Performed By: #### M G #### [address] Ferritin [Mass/volume] in Se rum or PlasmaOrdered By: Ethan Cummings on 12-02-2022 Ferritin [Mass/Vol] 85.7 ng/mL 23.9-336.2 [facility] Folate [Mass/volume] in Seru m or PlasmaOrdered By: Ethan Cummings on 12-02-2022 Folate [Mass/Vol] ng/mL >5.9 [facility] Comment on above: Folate reference ran ge: >5.9 ng/mlThe WHO technical consultation on folate and vitamin [id number] has determined that folate concentrations lessthan 4 ng/ml are considered deficient. Globulin Calc (S) [Mass/Vol] Ordered By: Ethan Cummings on 12-02-2022 Globulin (S) [Mass/Vol] 3.7 g/dL [facility] Hematocrit Auto (Bld) [Volum e fraction]Ordered By: Ethan Cummings on 12-02-2022 Hematocrit (Bld) [Volume fraction] 47.4 % 38.8-50.0 [facility] Hemoglobin [Mass/volume] in BloodOrdered By: Ethan Cummings on 12-02-2022 Hemoglobin (Bld) [Mass/Vol] 15.3 g/dL 13.0-17.0 [facility] Iron [Mass/volume] in Serum or PlasmaOrdered By: Ethan Cummings on 12-02-2022 Iron [Mass/Vol] 96 ug/dL 40-160 [facility] Iron and TIBC Profileon 11-19 % Iron Saturation 28.6 % Normal 20-50 [facility] Comment on above: Order Comment: FASTI NG Performed By: #### F E and TIBC, [place], CBC, CMP, [id number] #### [facility] [address] [place] [address] Iron [Mass/Vol] 96 ug/dL Normal 40-160 [facility] Comment on above: Order Comment: FASTI NG Performed By: #### F E and TIBC, [place], CBC, CMP, [id number] #### [facility] [address] [place] [address] Total Iron Binding Capacity 336 ug/dL Normal 255-450 [facility] Comment on above: Order Comment: FASTI NG Performed By: #### F E and TIBC, [place], CBC, CMP, [id number] #### [facility] [address] [place] [address] Transferrin [Mass/Vol] 240 mg/dL Normal 180-380 [facility] Comment on above: Order Comment: FASTI NG Performed By: #### F E and TIBC, [place], CBC, CMP, [id number] #### [facility] [address] [place] [address] Iron binding capacity [Mass/ volume] in Serum or PlasmaOrdered By: Ethan Cummings on 12-02-2022 Iron binding capacity [Mass/Vol] 336 ug/dL 255-450 [facility] Iron saturation [Mass Fracti on] in Serum or PlasmaOrdered By: Ethan Cummings on 12-02-2022 Iron saturation [Mass fraction] 28.6 % 20-50 [facility] Laboratory - Chemistry and C hemistry - challengeOrdered By: Ethan Cummings on 12-02-2022 Cobalamin (Vitamin B12) [Mass/Vol] 1521 pg/mL 180-914 [facility] Leukocytes [#/volume] correc morris for nucleated erythrocytes in Blood by Automated counOrdered By: Ethan Cummings on 12-02-2022 WBC corrected for nucl RBC Auto (Bld) [#/Vol] 11.8 10*3/uL 4.1-10.5 [facility] Lymphocytes Auto (Bld) [#/Vo l]Ordered By: Ethan Cummings on 12-02-2022 Lymphocytes (Bld) [#/Vol] 2.4 10*3/uL 1.00-4.8 [facility] Lymphocytes/100 WBC Auto (Bl d)Ordered By: Ethan Cummings on 12-02-2022 Lymphocytes/100 WBC (Bld) 20.5 % . [facility] MCH Auto (RBC) [Entitic mass ]Ordered By: Ethan Cummings on 12-02-2022 MCH (RBC) [Entitic mass] 28.3 pg 27.5-35.2 [facility] MCHC Auto (RBC) [Mass/Vol]Or dered By: Ethan Cummings on 12-02-2022 MCHC (RBC) [Mass/Vol] 32.3 g/dL 32.5-35.6 [facility] MCV Auto (RBC) [Entitic vol] Ordered By: Ethan Cummings on 12-02-2022 MCV (RBC) [Entitic vol] 87.5 fL 83.5-101 [facility] Monocytes Auto (Bld) [#/Vol] Ordered By: Ethan Cummings on 12-02-2022 Monocytes (Bld) [#/Vol] 1.0 10*3/uL 0.0-0.8 [facility] Monocytes/100 WBC Auto (Bld) Ordered By: Ethan Cummings on 12-02-2022 Monocytes/100 WBC (Bld) 8.2 % . [facility] Neutrophils Auto (Bld) [#/Vo l]Ordered By: Ethan Cummings on 12-02-2022 Neutrophils (Bld) [#/Vol] 7.9 10*3/uL 1.8-7.7 [facility] Neutrophils/100 WBC Auto (Bl d)Ordered By: Ethan Cummings on 12-02-2022 Neutrophils/100 WBC (Bld) 67.1 % . [facility] No Panel InformationOrdered By: Ethan Cummings on 12-02-2022 Estimated GFR () 53 mL/Min [facility] Comment on above: GFR estimated refere nce range: According to KDOQI guidelines, <60 ml/min/1.73m2 is sufficient to diagnose a patient with chronic kidney disease. Pharmacy Creatinine Clearance (Chem 53.88 [facility] Nucleated erythrocytes [Pres ence] in Blood by Automated countOrdered By: Ethan Cummings on 12-02-2022 Nucleated RBC Auto Ql (Bld) 0.1 /100{WBC} 0-0.5 [facility] Platelet mean volume Auto (B ld) [Entitic vol]Ordered By: Ethan Cummings on 12-02-2022 Platelet mean volume (Bld) [Entitic vol] 8.5 fL 6.6-10.1 [facility] Platelets Auto (Bld) [#/Vol] Ordered By: Ethan Cummings on 12-02-2022 Platelets (Bld) [#/Vol] 214 10*3/uL 150-450 [facility] Protein [Mass/volume] in Ser um or PlasmaOrdered By: Ethan Cummings on 12-02-2022 Protein [Mass/Vol] 7.6 g/dL 6.1-7.9 [facility] RBC Auto (Bld) [#/Vol]Ordere d By: Ethan Cummings on 12-02-2022 RBC (Bld) [#/Vol] 5.41 10*6/uL 3.90-5.60 [facility] Serum or plasma alanine valle otransferase measurement without P-5'-P (enzymatic activiOrdered By: Ethan Cummings on 12-02-2022 ALT No additional P-5'-P [Catalytic activity/Vol] 19 U/L 10-60 [facility] Serum or plasma albumin/glob ulin mass ratioOrdered By: Ethan Cummings on 12-02-2022 Albumin/Globulin [Mass ratio] 1.1 {ratio} [facility] Serum or plasma alkaline tosin sphatase measurement (enzymatic activity/volume)Ordered By: Ethan Cummings on 12-02-2022 ALP [Catalytic activity/Vol] 101 U/L 32-92 [facility] Serum or plasma anion gap de terminationOrdered By: Ethan Cummings on 12-02-2022 Anion gap [Moles/Vol] 13.2 mmol/L 6.0-15.0 [facility] Serum or plasma aspartate am inotransferase measurement (enzymatic activity/volume)Ordered By: Ethan Cummings on 12-02-2022 AST [Catalytic activity/Vol] 32 U/L 10-42 [facility] Serum or plasma calcium mike urement (mass/volume)Ordered By: Ethan Cummings on 12-02-2022 Calcium [Mass/Vol] 9.5 mg/dL 8.2-10.2 [facility] Serum or plasma chloride arash surement (moles/volume)Ordered By: Ethan Cummings on 12-02-2022 Chloride [Moles/Vol] 101 mmol/L 95-114 [facility] Serum or plasma glucose mike urement (mass/volume)Ordered By: Ethan Cummings on 12-02-2022 Glucose [Mass/Vol] 150 mg/dL 70-100 [facility] Comment on above: ADA recommended refe rence rangeRandom Glucose Reference Range is dependent on time and content of last meal. Glucose of more than 200 mg/dL in a nonstressed, ambulatory subject supports the diagnosis of Diabetes Mellitus. Serum or plasma potassium me asurement (moles/volume)Ordered By: Ethan Cummings on 12-02-2022 Potassium [Moles/Vol] 4.3 mmol/L 3.5-5.1 [facility] Serum or plasma sodium measu rement (moles/volume)Ordered By: Ethan Cummings on 12-02-2022 Sodium [Moles/Vol] 140 mmol/L 136-146 [facility] Serum or plasma total biliru bin measurement (mass/volume)Ordered By: Ethan Cummings on 12-02-2022 Bilirubin [Mass/Vol] 1.5 mg/dL 0.3-1.2 [facility] Comment on above: Samples from patient s who have taken Naproxen have shown spurious elevation in Total Bilirubin levels. A metabolite of Naproxen, O-desmethylnaproxen, has been shown to interfere with the Jendrtaiik-Grof method for measuring Total Bilirubin. Serum or plasma total carbon dioxide measurement (moles/volume)Ordered By: Ethan Cummings on 12-02-2022 CO2 [Moles/Vol] 30.1 mmol/L 22.0-30.0 [facility] Serum or plasma urea nitroge n measurement (mass/volume)Ordered By: Ethan Cummings on 12-02-2022 Urea nitrogen [Mass/Vol] 22 mg/dL 08-11 [facility] Vit. B12/Folate Profileon Cobalamin (Vitamin B12) [Mass/Vol] 1521 pg/mL High 180-914 [facility] Comment on above: Order Comment: Comme nt add on if possible Performed By: #### M G #### [facility] [address] Folate > 22.3 Normal >5.9 [facility] Comment on above: Order Comment: Comme nt add on if possible Result Comment: Karen te reference range: >5.9 ng/ml The WHO technical consultation on folate and vitamin b12 deficiencies has determined that folate concentrations less than 4 ng/ml are considered deficient. PERFORMED BY: [place] [address] PATH[employer] RAFA BYRNE M.D. Performed By: #### M G #### [facility] [address] WBC Auto (Bld) [#/Vol]Ordere d By: Ethan Cummings on 12-02-2022 WBC (Bld) [#/Vol] 11.8 10*3/uL 4.1-10.5 [facility] Follow-Upon 11-15-2022 Follow-Up Normal [facility] 36on 11-14-2022 36 HF disharge call back Normal [facility] PROF CHEM 8 (BAS METB)on Anion gap [Moles/Vol] 12.6 mmol/L Normal [facility] Comment on above: Performed By: #### B MP ####[facility] [address] [place] [id number]. Emelina Navarro Calcium [Mass/Vol] 9.0 mg/dL Normal 8.5-10.1 [facility] Comment on above: Performed By: #### B MP ####[facility] [address] [place] [id number]. Emelina Navarro Chloride [Moles/Vol] 99 mmol/L Normal 98-107 [facility] Comment on above: Performed By: #### B MP ####[facility] [address] [place] [id number]. Emelina Navarro CO2 [Moles/Vol] 33.2 mmol/L Critically high 21.0-32.0 [facility] Comment on above: Performed By: #### B MP ####[facility] [address] [place] [phone]. Emelina Navarro Creatinine [Mass/Vol] 1.75 mg/dL Critically high 0.70-1.30 [facility] Comment on above: Performed By: #### B MP ####[facility] [address] [place] [id number]. Emelina Navarro EGFR-AF GABONESE 47 mL/min/1.73m2 Critically low >=60 [facility] Comment on above: Performed By: #### B MP ####[facility] [address] [place] [id number]. Emelina Navarro EGFR-NON AF GABONESE 39 mL/min/1.73m2 Critically low >=60 [facility] Comment on above: Performed By: #### B MP ####[facility] [address] [place] [phone]. Emelina Navarro Glucose [Mass/Vol] 132 mg/dL Critically high 74-106 [facility] Comment on above: Performed By: #### B MP ####[facility] [address] [place] [id number]. Emelina Navarro Potassium [Moles/Vol] 3.8 mmol/L Normal 3.5-5.1 [facility] Comment on above: Performed By: #### B MP ####[facility] [address] [place] [phone]. Emelina Navarro Sodium [Moles/Vol] 141 mmol/L Normal 136-145 [facility] Comment on above: Performed By: #### B MP ####[facility] [address] [place] [phone]. Emelina Navarro Urea nitrogen [Mass/Vol] 22.0 mg/dL Critically high 7.0-18.0 [facility] Comment on above: Performed By: #### B MP ####[facility] [address] [place] [phone]. Emelina Navarro Urea nitrogen/Creatinine [Mass ratio] 12.6 mg/mg Normal [facility] Comment on above: Performed By: #### B MP ####[facility] [address] [place] [phone]. Emelina Navarro Telephoneon 11-14-2022 Telephone Normal [facility] BASIC METABOLIC PANELon 10-20 Anion gap [Moles/Vol] 11 mmol/L Normal 7-20 [facility] Comment on above: Performed By: #### L AB15 ####[facility] ([facility])[address] [place] [address] Calcium [Mass/Vol] 9.2 mg/dL Normal 8.6-10.[address] [facility] Comment on above: Performed By: #### L [id number] ####[facility] [place] [address] Chloride [Moles/Vol] 100 mmol/L Normal 98-107 [facility] Comment on above: Performed By: #### L AB15 ####[facility] ([facility] [place] [address] CO2 [Moles/Vol] 27 mmol/L Normal 21-31 [facility] Comment on above: Performed By: #### L AB15 ####[facility] ([facility])[address] [place] [address] Creatinine [Mass/Vol] 1.40 mg/dL High 0.70-1.30 [facility] Comment on above: Performed By: #### L AB15 ####[facility] ([facility])[address] [place] [address] GLOMERULAR FILTRATION RATE ML/MIN/1.73 SQ M.PREDICTED 51.3 mL/min/1.73m*2 Low >60.0 [facility] Comment on above: Result Comment: The [facility]???s estimated glomerular filtration rate (eGFR) will no longer include consideration of race in its calculation. The National Kidney Foundation???s eGFR Task Force developed new recommendations for the estimation of the glomerular filtration rate in the [place] They recommend immediate implementation of the new equation refit without the race variable in all laboratories because the calculation does not include race. In addition to not including race in the calculation and reporting, it included diversity in its development, and has acceptable performance characteristics and potential consequences that do not disproportionately affect any one group of individuals. Performed By: #### L AB15 ####[facility] ([facility])[address] [place] [address] Glucose [Mass/Vol] 113 mg/dL High 70-[address] [facility] Comment on above: Performed By: #### L [id number] ####[facility] ([facility])[address] [place] [address] Potassium [Moles/Vol] 3.8 mmol/L Normal 3.5-5.1 [facility] Comment on above: Performed By: #### L AB15 ####[facility] ([facility])[address] [place] [address] Sodium [Moles/Vol] 138 mmol/L Normal 136-[address] [facility] Comment on above: Performed By: #### L [id number] ####[facility] ([facility] [place] [place] [address] Urea nitrogen [Mass/Vol] 24 mg/dL Normal 7-25 [facility] Comment on above: Performed By: #### L [id number] ####[facility] ([facility])[address] [facility] [place] [address] UREA NITROGEN/CREATININE (MASS RATIO) IN SER/PLAS 17.14 Normal [facility] Comment on above: Performed By: #### L [id number] ####[facility] ([facility])[address] [place] [place] [address] DSon 11-11-2022 DS Normal [facility] POCT GLUCOSE METER UNSOLICIT ED RESULTSon 11-11-2022 Glucose [Mass/Vol] 117 mg/dL High 70-[address] [facility] Comment on above: Result Comment: [email or web address] Performed By: #### L [id number] ####[facility] ([facility])[address] [place] [address] PROTIME-INRon 11-11-2022 INR IN PPP BY COAGULATION ASSAY 2.02 High 0.90-1.10 [facility] Comment on above: Result Comment: [facility] P RECOMMENDED INR FOR WARFARIN THERAPY CONDITION INRPROPHYLAXIS OF VENOUS THROMBOSIS 2-3(HIGH-RISK SURGERY)TREATMENT OF VENOUS THROMBOSIS 2-3TREATMENT OF PULMONARY EMBOLISM 2-3PREVENTION OF SYSTEMIC EMBOLISM: 2-3 ACUTE MYOCARDIAL INFARCTION TISSUE HEART VALVES VALVULAR HEART DISEASE ATRIAL FIBRILLATION RECURRENT SYSTEMIC EMBOLISMMECHANICAL HEART VALVE 2.5-3.5 FROM: ORAL ANTICOAGULANTS. MECHANISM OF ACTION, CLINICAL EFFECTIVENESS, AND OPTIMAL THERAPEUTIC RANGE. CHEST 1995;108:231S-246S. Performed By: #### L [id number] ####[facility] ([facility])[address] [place] [address] PROTHROMBIN TIME (PT) IN PPP BY COAGULATION ASSAY 22.5 Seconds High 12.3-14.8 [facility] Comment on above: Performed By: #### L [id number] ####[facility] ([facility])[address] [place] [address] BASIC METABOLIC PANELon 12-2 Anion gap [Moles/Vol] 8 mmol/L Normal 7-20 [facility] Comment on above: Performed By: #### L [id number] ####[facility] ([facility])[address] [place] [address] Calcium [Mass/Vol] 8.9 mg/dL Normal 8.6-10.[address] [facility] Comment on above: Performed By: #### L [id number] ####[facility] ([facility])[address] [place] [address] Chloride [Moles/Vol] 101 mmol/L Normal 98-107 [facility] Comment on above: Performed By: #### L [id number] ####[facility] ([facility] [place] [address] CO2 [Moles/Vol] 32 mmol/L High 21-31 [facility] Comment on above: Performed By: #### L AB15 ####[facility] ([facility] [place] [address] Creatinine [Mass/Vol] 1.51 mg/dL High 0.70-1.30 [facility] Comment on above: Performed By: #### L AB15 ####[facility] ([facility] [place] [address] GLOMERULAR FILTRATION RATE ML/MIN/1.73 SQ M.PREDICTED 46.8 mL/min/1.73m*2 Low >60.0 [facility] Comment on above: Result Comment: The [facility]???s estimated glomerular filtration rate (eGFR) will no longer include consideration of race in its calculation. The National Kidney Foundation???s eGFR Task Force developed new recommendations for the estimation of the glomerular filtration rate in the [place] They recommend immediate implementation of the new equation refit without the race variable in all laboratories because the calculation does not include race. In addition to not including race in the calculation and reporting, it included diversity in its development, and has acceptable performance characteristics and potential consequences that do not disproportionately affect any one group of individuals. Performed By: #### L [id number] ####[facility] ([facility])[address] [place] [address] Glucose [Mass/Vol] 114 mg/dL High 70-[address] [facility] Comment on above: Performed By: #### L [id number] ####[facility] ([facility])[address] [place] [address] Potassium [Moles/Vol] 3.7 mmol/L Normal 3.5-5.1 [facility] Comment on above: Performed By: #### L [id number] ####[facility] ([facility] [place] [address] Sodium [Moles/Vol] 141 mmol/L Normal 136-[address] [facility] Comment on above: Performed By: #### L [id number] ####[facility] ([facility])[address] [place] [address] Urea nitrogen [Mass/Vol] 25 mg/dL Normal 7-25 [facility] Comment on above: Performed By: #### L [id number] ####[facility] ([facility] [place] [address] UREA NITROGEN/CREATININE (MASS RATIO) IN SER/PLAS 16.56 Normal [facility] Comment on above: Performed By: #### L [id number] ####[facility] ([facility])[address] [place] [address] CBCon 11-10-2022 Erythrocyte distribution width (RBC) [Ratio] 17.8 % High 11.5-15.0 [facility] Comment on above: Performed By: #### L [id number] ####[facility] ([facility])[address] [place] [address] ERYTHROCYTE MEAN CORPUSCULAR HEMOGLOBIN CONCENTRATION (G/DL) BY AUTOMATED 31.6 g/dL Low 32.0-35.0 [facility] Comment on above: Performed By: #### L [id number] ####[facility] ([facility] [place] [address] Hematocrit (Bld) [Volume fraction] 39.6 % Normal 39.0-55.0 [facility] Comment on above: Performed By: #### L [id number] ####[facility] ([facility] [place] [address] Hemoglobin (Bld) [Mass/Vol] 12.5 g/dL Low 13.0-17.0 [facility] Comment on above: Performed By: #### L [id number] ####[facility] ([facility])[address] [place] [address] MCH (RBC) [Entitic mass] 28.3 pg Normal 27.0-33.0 [facility] Comment on above: Performed By: #### L [id number] ####[facility] ([facility])[address] [place] [address] MCV (RBC) [Entitic vol] 89.8 fL Normal 82.0-98.0 [facility] Comment on above: Performed By: #### L [id number] ####[facility] ([facility])[address] [place] [address] PLATELETS (10*3/UL) IN BLOOD AUTOMATED COUNT 211 10*3/uL Normal 150-400 [facility] Comment on above: Performed By: #### L [id number] ####[facility] ([facility])[address] [place] [address] RBC (Bld) [#/Vol] 4.41 10*6/uL Normal 4.20-5.70 [facility] Comment on above: Performed By: #### L [id number] ####[facility] ([facility])[address] [place] [address] WBC (Bld) [#/Vol] 9.11 10*3/uL Normal 4.00-10.60 [facility] Comment on above: Performed By: #### L [id number] ####[facility] ([facility])[address] [place] [address] POCT GLUCOSE METER UNSOLICIT ED RESULTSon 11-10-2022 Glucose [Mass/Vol] 233 mg/dL High 70-[address] [facility] Comment on above: Result Comment: damaris thomas Performed By: #### L [id number] ####[facility] ([facility])[address] [place] [address] Glucose [Mass/Vol] 133 mg/dL High 70-[address] [facility] Comment on above: Result Comment: king payal Performed By: #### L [id number] ####[facility] ([facility])[address] [place] [address] Glucose [Mass/Vol] 233 mg/dL High 70-[address] [facility] Comment on above: Result Comment: king payal Performed By: #### L [id number] ####[facility] ([facility])[address] [place] [address] Glucose [Mass/Vol] 132 mg/dL High 70-[address] [facility] Comment on above: Result Comment: mark Performed By: #### L [id number] ####[facility] ([facility])[address] [place] [address] PROTIME-INRon 11-10-2022 INR IN PPP BY COAGULATION ASSAY 2.02 High 0.90-1.10 [facility] Comment on above: Result Comment: [facility] P RECOMMENDED INR FOR WARFARIN THERAPY CONDITION INRPROPHYLAXIS OF VENOUS THROMBOSIS 2-3(HIGH-RISK SURGERY)TREATMENT OF VENOUS THROMBOSIS 2-3TREATMENT OF PULMONARY EMBOLISM 2-3PREVENTION OF SYSTEMIC EMBOLISM: 2-3 ACUTE MYOCARDIAL INFARCTION TISSUE HEART VALVES VALVULAR HEART DISEASE ATRIAL FIBRILLATION RECURRENT SYSTEMIC EMBOLISMMECHANICAL HEART VALVE 2.5-3.5 FROM: ORAL ANTICOAGULANTS. MECHANISM OF ACTION, CLINICAL EFFECTIVENESS, AND OPTIMAL THERAPEUTIC RANGE. CHEST 1995;108:231S-246S. Performed By: #### L [id number] ####[facility] ([employer])[address] [place] [address] PROTHROMBIN TIME (PT) IN PPP BY COAGULATION ASSAY 22.5 Seconds High 12.3-14.8 [facility] Comment on above: Performed By: #### L [id number] ####[facility] ([employer])[address] [place] [address] BASIC METABOLIC PANELon 12-2 Anion gap [Moles/Vol] 9 mmol/L Normal 7-20 [facility] Comment on above: Performed By: #### L [id number] ####[facility] ([employer])[address] [place] [address] Calcium [Mass/Vol] 8.8 mg/dL Normal 8.6-10.[address] [facility] Comment on above: Performed By: #### L [id number] ####[facility] ([employer])[address] [place] [address] Chloride [Moles/Vol] 103 mmol/L Normal 98-107 [facility] Comment on above: Performed By: #### L [id number] ####[facility] ([employer])[address] [place] [address] CO2 [Moles/Vol] 29 mmol/L Normal 21-31 [facility] Comment on above: Performed By: #### L [id number] ####[facility] ([facility])[address] [place] [address] Creatinine [Mass/Vol] 1.39 mg/dL High 0.70-1.30 [facility] Comment on above: Performed By: #### L [id number] ####[facility] ([facility])[address] [place] [address] GLOMERULAR FILTRATION RATE ML/MIN/1.73 SQ M.PREDICTED 51.7 mL/min/1.73m*2 Low >60.0 [facility] Comment on above: Result Comment: [facility]???s estimated glomerular filtration rate (eGFR) will no longer include consideration of race in its calculation. The National Kidney Foundation???s eGFR Task Force developed new recommendations for the estimation of the glomerular filtration rate in the [place] They recommend immediate implementation of the new equation refit without the race variable in all laboratories because the calculation does not include race. In addition to not including race in the calculation and reporting, it included diversity in its development, and has acceptable performance characteristics and potential consequences that do not disproportionately affect any one group of individuals. Performed By: #### L [id number] ####[facility] ([facility])[address] [place] [address] Glucose [Mass/Vol] 74 mg/dL Normal 70-[address] [facility] Comment on above: Performed By: #### L [id number] ####[facility] ([facility])[address] [place] [address] Potassium [Moles/Vol] 4.1 mmol/L Normal 3.5-5.1 [facility] Comment on above: Performed By: #### L [id number] ####[facility] ([facility])[address] [place] [address] Sodium [Moles/Vol] 141 mmol/L Normal 136-[address] [facility] Comment on above: Performed By: #### L [id number] ####[facility] ([facility])[address] [place] [address] Urea nitrogen [Mass/Vol] 26 mg/dL High 7-25 [facility] Comment on above: Performed By: #### L [id number] ####[facility] ([facility])[address] [place] [address] UREA NITROGEN/CREATININE (MASS RATIO) IN SER/PLAS 18.71 Normal [facility] Comment on above: Performed By: #### L [id number] ####[facility] ([facility])[address] [place] [address] CONSULTon 11-09-2022 CONSULT Normal [facility] DIGOXIN LEVELon 11-09-2022 DIGOXIN (NG/ML) IN SER/PLAS 1.1 ng/mL Normal 0.7-2 [facility] Comment on above: Performed By: #### L [id number] ####[facility] ([facility])[address] [place] [address] MAGNESIUMon 11-09-2022 Magnesium [Mass/Vol] 2.4 mg/dL Normal 1.9-2.7 [facility] Comment on above: Performed By: #### L [id number] ####[facility] ([facility])[address] [place] [address] POCT GLUCOSE METER UNSOLICIT ED RESULTSon 11-09-2022 Glucose [Mass/Vol] 206 mg/dL High 70-[address] [facility] Comment on above: Result Comment: flores Performed By: #### L [id number] ####[facility] ([facility])[address] [place] [address] Glucose [Mass/Vol] 152 mg/dL High 70-[address] [facility] Comment on above: Result Comment: yefri pel2 Performed By: #### L [id number] ####[facility] ([facility])[address] [place] [address] Glucose [Mass/Vol] 151 mg/dL High 70-[address] [facility] Comment on above: Result Comment: yefri [email or web address] Performed By: #### L [id number] ####[facility] ([facility])[address] [place] [address] Glucose [Mass/Vol] 89 mg/dL Normal 70-[address] [facility] Comment on above: Result Comment: yefri [email or web address] Performed By: #### L [id number] ####[facility] ([facility])[address] [place] [address] Glucose [Mass/Vol] 79 mg/dL Normal 70-[address] [facility] Comment on above: Result Comment: yefri [email or web address] Performed By: #### L [id number] ####[facility] ([facility])[address] [place] [address] PROTIME-INRon 11-09-2022 INR IN PPP BY COAGULATION ASSAY 2.01 High 0.90-1.10 [facility] Comment on above: Result Comment: [facility] P RECOMMENDED INR FOR WARFARIN THERAPY CONDITION INRPROPHYLAXIS OF VENOUS THROMBOSIS 2-3(HIGH-RISK SURGERY)TREATMENT OF VENOUS THROMBOSIS 2-3TREATMENT OF PULMONARY EMBOLISM 2-3PREVENTION OF SYSTEMIC EMBOLISM: 2-3 ACUTE MYOCARDIAL INFARCTION TISSUE HEART VALVES VALVULAR HEART DISEASE ATRIAL FIBRILLATION RECURRENT SYSTEMIC EMBOLISMMECHANICAL HEART VALVE 2.5-3.5 FROM: ORAL ANTICOAGULANTS. MECHANISM OF ACTION, CLINICAL EFFECTIVENESS, AND OPTIMAL THERAPEUTIC RANGE. CHEST 1995;108:231S-246S. Performed By: #### L [id number] ####[facility] ([facility])[address] [place] [address] PROTHROMBIN TIME (PT) IN PPP BY COAGULATION ASSAY 22.4 Seconds High 12.3-14.8 [facility] Comment on above: Performed By: #### L [id number] ####[facility] ([facility])[address] [place] [address] TROPONIN Ion 11-09-2022 Troponin I.cardiac [Mass/Vol] 0.06 ng/mL High 0.00-0.04 [facility] Comment on above: Performed By: #### L [id number] ####[facility] ([facility])[address] [place] [address] 36on 11-08-2022 36 Patient called mirza grady to be seen today in the office, as he is up more weight and is 252#. I advised patient to go to [facility] ED. Normal [facility] APTTon 11-08-2022 ACTIVATED PARTIAL THROMBOPLASTIN TIME IN PPP BY COAGULATION ASSAY 35.5 Seconds High 25.0-35.0 [facility] Comment on above: Performed By: #### L [id number] ####[facility] ([facility])[address] [place] [address] B-TYPE NATRIURETIC PEPTIDEon 11-08-2022 Natriuretic peptide B (Bld) [Mass/Vol] 656 pg/mL High 0-100 [facility] Comment on above: Performed By: #### L [id number] ####[facility] ([facility])[address] [place] [address] BASIC METABOLIC PANELon 10-20 Anion gap [Moles/Vol] 7 mmol/L Normal 7-20 [facility] Comment on above: Performed By: #### L [id number] ####[facility] ([facility])[address] [place] [address] Calcium [Mass/Vol] 9.0 mg/dL Normal 8.6-10.[address] [facility] Comment on above: Performed By: #### L [id number] ####[facility] ([facility] [place] [address] Chloride [Moles/Vol] 102 mmol/L Normal 98-107 [facility] Comment on above: Performed By: #### L [id number] ####[facility] ([facility])[address] [place] [address] CO2 [Moles/Vol] 30 mmol/L Normal 21-31 [facility] Comment on above: Performed By: #### L [id number] ####[facility] ([facility] [place] [address] Creatinine [Mass/Vol] 1.70 mg/dL High 0.70-1.30 [facility] Comment on above: Performed By: #### L [id number] ####[facility] ([facility])[address] [place] [address] GLOMERULAR FILTRATION RATE ML/MIN/1.73 SQ M.PREDICTED 40.5 mL/min/1.73m*2 Low >60.0 [facility] Comment on above: Result Comment: [facility]???s estimated glomerular filtration rate (eGFR) will no longer include consideration of race in its calculation. The National Kidney Foundation???s eGFR Task Force developed new recommendations for the estimation of the glomerular filtration rate in the [place] They recommend immediate implementation of the new equation refit without the race variable in all laboratories because the calculation does not include race. In addition to not including race in the calculation and reporting, it included diversity in its development, and has acceptable performance characteristics and potential consequences that do not disproportionately affect any one group of individuals. Performed By: #### L [id number] ####[facility] ([facility] [place] [address] Glucose [Mass/Vol] 111 mg/dL High 70-[address] [facility] Comment on above: Performed By: #### L [id number] ####[facility] ([facility] [place] [address] Potassium [Moles/Vol] 4.0 mmol/L Normal 3.5-5.1 [facility] Comment on above: Performed By: #### L [id number] ####[facility] ([facility] [place] [address] Sodium [Moles/Vol] 139 mmol/L Normal 136-[address] [facility] Comment on above: Performed By: #### L [id number] ####[facility] ([facility])[address] [place] [address] Urea nitrogen [Mass/Vol] 26 mg/dL High 7-25 [facility] Comment on above: Performed By: #### L [id number] ####[facility] ([facility])[address] [place] [address] UREA NITROGEN/CREATININE (MASS RATIO) IN SER/PLAS 15.29 Normal [facility] Comment on above: Performed By: #### L [id number] ####[facility] ([facility])[address] [place] [address] CBC WITH AUTO DIFFERENTIALon 11-08-2022 Basophils (Bld) [#/Vol] 0.03 10*3/uL Normal 0.00-0.20 [facility] Comment on above: Performed By: #### L [id number] ####[facility] ([facility])[address] [place] [address] Basophils/100 WBC (Bld) 0.3 % Normal 0.0-1.0 [facility] Comment on above: Performed By: #### L [id number] ####[facility] ([facility])[address] [place] [address] Eosinophils (Bld) [#/Vol] 0.45 10*3/uL Normal 0.00-0.50 [facility] Comment on above: Performed By: #### L [id number] ####[facility] ([facility])[address] [place] [address] Eosinophils/100 WBC (Bld) 4.8 % Normal 0.0-6.0 [facility] Comment on above: Performed By: #### L [id number] ####[facility] ([facility])[address] [place] [address] Erythrocyte distribution width (RBC) [Ratio] 18.3 % High 11.5-15.0 [facility] Comment on above: Performed By: #### L [id number] ####[facility] ([facility])[address] [place] [address] ERYTHROCYTE MEAN CORPUSCULAR HEMOGLOBIN CONCENTRATION (G/DL) BY AUTOMATED 32.0 g/dL Normal 32.0-35.0 [facility] Comment on above: Performed By: #### L [id number] ####[facility] ([facility])[address] [place] [address] Hematocrit (Bld) [Volume fraction] 38.7 % Low 39.0-55.0 [facility] Comment on above: Performed By: #### L [id number] ####[facility] ([facility])[address] [place] [address] Hemoglobin (Bld) [Mass/Vol] 12.4 g/dL Low 13.0-17.0 [facility] Comment on above: Performed By: #### L [id number] ####[facility] ([facility])[address] [place] [address] Immature granulocytes (Bld) [#/Vol] 0.03 10*3/uL Normal 0.00-0.20 [facility] Comment on above: Performed By: #### L [id number] ####[facility] ([facility])[address] [place] [address] Immature granulocytes/100 WBC (Bld) 0.3 % Normal 0.0-1.0 [facility] Comment on above: Performed By: #### L [id number] ####[facility] ([facility])[address] [place] [address] Lymphocytes (Bld) [#/Vol] 1.96 10*3/uL Normal 1.20-4.00 [facility] Comment on above: Performed By: #### L [id number] ####[facility] ([facility])[address] [place] [address] Lymphocytes/100 WBC (Bld) 21.0 % Normal 20.0-45.0 [facility] Comment on above: Performed By: #### L [id number] ####[facility] ([facility])[address] [place] [address] MCH (RBC) [Entitic mass] 29.0 pg Normal 27.0-33.0 [facility] Comment on above: Performed By: #### L [id number] ####[facility] ([facility])[address] [place] [address] MCV (RBC) [Entitic vol] 90.6 fL Normal 82.0-98.0 [facility] Comment on above: Performed By: #### L [id number] ####[facility] ([facility])[address] [place] [address] Monocytes (Bld) [#/Vol] 0.85 10*3/uL Normal 0.10-1.00 [facility] Comment on above: Performed By: #### L [id number] ####[facility] ([facility] [place] [address] Monocytes/100 WBC (Bld) 9.1 % Normal 5.0-12.0 [facility] Comment on above: Performed By: #### L [id number] ####[facility] ([facility])[address] [place] [address] Neutrophils (Bld) [#/Vol] 6.03 10*3/uL Normal 1.60-7.60 [facility] Comment on above: Performed By: #### L [id number] ####[facility] ([facility])[address] [place] [address] Neutrophils/100 WBC (Bld) 64.5 % Normal 40.0-72.0 [facility] Comment on above: Performed By: #### L [id number] ####[facility] ([facility])[address] [place] [address] NRBC (PER 100 WBCS) BY AUTOMATED COUNT 0.0 % Normal 0.0-0.0 [facility] Comment on above: Performed By: #### L [id number] ####[facility] ([facility])[address] [place] [address] PLATELETS (10*3/UL) IN BLOOD AUTOMATED COUNT 213 10*3/uL Normal 150-400 [facility] Comment on above: Performed By: #### L [id number] ####[facility] ([facility])[address] [place] [address] RBC (Bld) [#/Vol] 4.27 10*6/uL Normal 4.20-5.70 [facility] Comment on above: Performed By: #### L [id number] ####[facility] ([facility])[address] [place] [address] WBC (Bld) [#/Vol] 9.35 10*3/uL Normal 4.00-10.60 [facility] Comment on above: Performed By: #### L [id number] ####[facility] ([facility])[address] [place] [address] EDNURSon 11-08-2022 EDNURS Patient reports wors ening swelling to to BLE. Reports hx of CHF Normal [facility] EDPROVon 11-08-2022 EDPROV Normal [facility] HPon 11-08-2022 HP Normal [facility] POCT GLUCOSE METER UNSOLICIT ED RESULTSon 11-08-2022 Glucose [Mass/Vol] 146 mg/dL High 70-[address] [facility] Comment on above: Result Comment: berta moses Performed By: #### L [id number] ####[facility] ([facility])[address] [place] [address] PROTIME-INRon 11-08-2022 INR IN PPP BY COAGULATION ASSAY 1.88 High 0.90-1.10 [facility] Comment on above: Result Comment: [facility] P RECOMMENDED INR FOR WARFARIN THERAPY CONDITION INRPROPHYLAXIS OF VENOUS THROMBOSIS 2-3(HIGH-RISK SURGERY)TREATMENT OF VENOUS THROMBOSIS 2-3TREATMENT OF PULMONARY EMBOLISM 2-3PREVENTION OF SYSTEMIC EMBOLISM: 2-3 ACUTE MYOCARDIAL INFARCTION TISSUE HEART VALVES VALVULAR HEART DISEASE ATRIAL FIBRILLATION RECURRENT SYSTEMIC EMBOLISMMECHANICAL HEART VALVE 2.5-3.5 FROM: ORAL ANTICOAGULANTS. MECHANISM OF ACTION, CLINICAL EFFECTIVENESS, AND OPTIMAL THERAPEUTIC RANGE. CHEST 1995;108:231S-246S. Performed By: #### L [id number] ####[facility] ([employer])[address] [place] [address] PROTHROMBIN TIME (PT) IN PPP BY COAGULATION ASSAY 21.3 Seconds High 12.3-14.8 [facility] Comment on above: Performed By: #### L [id number] ####[facility] ([employer])[address] [place] [address] TROPONIN Ion 11-08-2022 Troponin I.cardiac [Mass/Vol] 0.06 ng/mL High 0.00-0.04 [facility] Comment on above: Performed By: #### L [id number] ####[facility] ([facility])[address] [place] [address] A1C HEMOGLOBINon 11-07-2022 HbA1c (Bld) [Mass fraction] 7.4 % [facility] Other Glucose - FINGER STICKon Glucose [Mass/Vol] 109 mg/dL [facility] Other HbA1c (Bld) [Mass fraction]o n 11-07-2022 A1C HEMOGLOBIN [place] Other Follow-Upon 10-27-2022 Follow-Up Normal [facility] PROF CHEM 8 (BAS METB)on Anion gap [Moles/Vol] 12.2 mmol/L Normal [facility] Comment on above: Performed By: #### B MP ####[facility] [address] [place] [address]Dr. Emelina Navarro Calcium [Mass/Vol] 8.7 mg/dL Normal 8.5-10.1 [facility] Comment on above: Performed By: #### B MP ####[facility] [address]pe[address]hor[address] [address]Dr. Emelina Navarro Chloride [Moles/Vol] 101 mmol/L Normal 98-107 [facility] Comment on above: Performed By: #### B MP ####[facility] R[address]pbgwik[address] [place] [address]Dr. Emelina Navarro CO2 [Moles/Vol] 29.9 mmol/L Normal 21.0-32.0 [facility] Comment on above: Performed By: #### B MP ####[facility] [address] [place], [place] [address]Dr. Emelina Navarro Creatinine [Mass/Vol] 1.78 mg/dL Critically high 0.70-1.30 [facility] Comment on above: Performed By: #### B MP ####[facility] Qarzrpibce[address] [place], [place] [address]Dr. Emelina Ramon EGFR-AF GABONESE 46 mL/min/1.73m2 Critically low >=60 [facility] Comment on above: Performed By: #### B MP ####[facility] Zbjdfinc[address] [place], [place] [address]Dr. Emelina Ramon EGFR-NON AF GABONESE 38 mL/min/1.73m2 Critically low >=60 [facility] Comment on above: Performed By: #### B MP ####[facility] W[address]pk[address] [place], [place] [address]Dr. Emelina Ramon Glucose [Mass/Vol] 127 mg/dL Critically high 74-106 [facility] Comment on above: Performed By: #### B MP ####[facility] [address] [place], [place] [address]Dr. Emelina Navarro Potassium [Moles/Vol] 4.1 mmol/L Normal 3.5-5.1 [facility] Comment on above: Performed By: #### B MP ####[facility] [address] [place] [id number]. Emelina Navarro Sodium [Moles/Vol] 139 mmol/L Normal 136-145 [facility] Comment on above: Performed By: #### B MP ####[facility] [address] [place] [address]Dr. Emelina Navarro Urea nitrogen [Mass/Vol] 39.0 mg/dL Critically high 7.0-18.0 [facility] Comment on above: Performed By: #### B MP ####[facility] [address] [place] [address]Dr. Emelina Navarro Urea nitrogen/Creatinine [Mass ratio] 21.9 mg/mg Normal [facility] Comment on above: Performed By: #### B MP ####[facility] [address] [place] [address]Dr. Emelina Navarro 36on 10-25-2022 36 Heart failure discha rge call back Normal [facility] Telephoneon 10-25-2022 Telephone Normal [facility] BASIC METABOLIC PANELon 12-0 Anion gap [Moles/Vol] 7 mmol/L Normal 7-20 [facility] Comment on above: Performed By: #### L [id number] ####[facility] (AKER)[address] [place] [place] [address] Calcium [Mass/Vol] 8.7 mg/dL Normal 8.6-10.[address] [facility] Comment on above: Performed By: #### L [id number] ####[facility] (BEAKER)[address] [facility] [place] [address] Chloride [Moles/Vol] 102 mmol/L Normal 98-107 [facility] Comment on above: Performed By: #### L [id number] ####[facility] (BEAKER)[address] [place] [place] [address] CO2 [Moles/Vol] 33 mmol/L High 21-31 [facility] Comment on above: Performed By: #### L [id number] ####[facility] ([facility] [place] [address] Creatinine [Mass/Vol] 1.58 mg/dL High 0.70-1.30 [facility] Comment on above: Performed By: #### L [id number] ####[facility] ([facility])[address] [place] [address] GLOMERULAR FILTRATION RATE ML/MIN/1.73 SQ M.PREDICTED 44.3 mL/min/1.73m*2 Low >60.0 [facility] Comment on above: Result Comment: [facility]???s estimated glomerular filtration rate (eGFR) will no longer include consideration of race in its calculation. The National Kidney Foundation???s eGFR Task Force developed new recommendations for the estimation of the glomerular filtration rate in the [place] They recommend immediate implementation of the new equation refit without the race variable in all laboratories because the calculation does not include race. In addition to not including race in the calculation and reporting, it included diversity in its development, and has acceptable performance characteristics and potential consequences that do not disproportionately affect any one group of individuals. Performed By: #### L [id number] ####[facility] ([facility])[address] [place] [address] Glucose [Mass/Vol] 82 mg/dL Normal 70-[address] [facility] Comment on above: Performed By: #### L [id number] ####[facility] ([facility])[address] [place] [address] Potassium [Moles/Vol] 4.0 mmol/L Normal 3.5-5.1 [facility] Comment on above: Performed By: #### L [id number] ####[facility] ([facility])[address] [place] [address] Sodium [Moles/Vol] 142 mmol/L Normal 136-[address] [facility] Comment on above: Performed By: #### L [id number] ####[facility] ([facility])[address] [place] [address] Urea nitrogen [Mass/Vol] 42 mg/dL High 7-25 [facility] Comment on above: Performed By: #### L [id number] ####[facility] ([facility])[address] [place] [address] UREA NITROGEN/CREATININE (MASS RATIO) IN SER/PLAS 26.58 Normal [facility] Comment on above: Performed By: #### L [id number] ####[facility] ([facility])[address] [place] [address] CBCon 10-24-2022 Erythrocyte distribution width (RBC) [Ratio] 16.3 % High 11.5-15.0 [facility] Comment on above: Performed By: #### L [id number] ####[facility] ([facility])[address] [place] [address] ERYTHROCYTE MEAN CORPUSCULAR HEMOGLOBIN CONCENTRATION (G/DL) BY AUTOMATED 31.1 g/dL Low 32.0-35.0 [facility] Comment on above: Performed By: #### L [id number] ####[facility] ([facility])[address] [place] [address] Hematocrit (Bld) [Volume fraction] 45.3 % Normal 39.0-55.0 [facility] Comment on above: Performed By: #### L [id number] ####[facility] ([facility])[address] [place] [address] Hemoglobin (Bld) [Mass/Vol] 14.1 g/dL Normal 13.0-17.0 [facility] Comment on above: Performed By: #### L [id number] ####[facility] ([facility])[address] [place] [address] MCH (RBC) [Entitic mass] 28.0 pg Normal 27.0-33.0 [facility] Comment on above: Performed By: #### L [id number] ####[facility] ([facility] [place] [address] MCV (RBC) [Entitic vol] 90.1 fL Normal 82.0-98.0 [facility] Comment on above: Performed By: #### L [id number] ####[facility] ([facility] [place] [address] PLATELETS (10*3/UL) IN BLOOD AUTOMATED COUNT 158 10*3/uL Normal 150-400 [facility] Comment on above: Performed By: #### L [id number] ####[facility] ([facility])[address] [place] [address] RBC (Bld) [#/Vol] 5.03 10*6/uL Normal 4.20-5.70 [facility] Comment on above: Performed By: #### L [id number] ####[facility] ([facility])[address] [place] [address] WBC (Bld) [#/Vol] 11.90 10*3/uL High 4.00-10.60 [facility] Comment on above: Performed By: #### L [id number] ####[facility] ([facility])[address] [place] [address] DSon 10-24-2022 DS Normal [facility] MAGNESIUMon 10-24-2022 Magnesium [Mass/Vol] 2.5 mg/dL Normal 1.9-2.7 [facility] Comment on above: Performed By: #### L [id number] ####[facility] ([facility])[address] [place] [address] POCT GLUCOSE METER UNSOLICIT ED RESULTSon 10-24-2022 Glucose [Mass/Vol] 148 mg/dL High 70-[address] [facility] Comment on above: Result Comment: [email or web address] Performed By: #### L [id number] ####[facility] ([facility] [place] [address] Glucose [Mass/Vol] 75 mg/dL Normal 70-[address] [facility] Comment on above: Result Comment: [email or web address] Performed By: #### L [id number] ####[facility] ([facility] [place] [address] PROTIME-INRon 10-24-2022 INR IN PPP BY COAGULATION ASSAY 2.17 High 0.90-1.10 [facility] Comment on above: Result Comment: [facility] P RECOMMENDED INR FOR WARFARIN THERAPY CONDITION INRPROPHYLAXIS OF VENOUS THROMBOSIS 2-3(HIGH-RISK SURGERY)TREATMENT OF VENOUS THROMBOSIS 2-3TREATMENT OF PULMONARY EMBOLISM 2-3PREVENTION OF SYSTEMIC EMBOLISM: 2-3 ACUTE MYOCARDIAL INFARCTION TISSUE HEART VALVES VALVULAR HEART DISEASE ATRIAL FIBRILLATION RECURRENT SYSTEMIC EMBOLISMMECHANICAL HEART VALVE 2.5-3.5 FROM: ORAL ANTICOAGULANTS. MECHANISM OF ACTION, CLINICAL EFFECTIVENESS, AND OPTIMAL THERAPEUTIC RANGE. CHEST 1995;108:231S-246S. Performed By: #### L [id number] ####[facility] [employer])[address] [place] [address] PROTHROMBIN TIME (PT) IN PPP BY COAGULATION ASSAY 23.7 Seconds High 12.3-14.8 [facility] Comment on above: Performed By: #### L [id number] ####[facility] ([employer])[address] [place] [address] 30on 10-23-2022 30 Normal [facility] 30 Normal [facility] BASIC METABOLIC PANELon Anion gap [Moles/Vol] 8 mmol/L Normal 7-20 [facility] Comment on above: Performed By: #### L [id number] ####[facility] ([employer])[address] [place] [address] Calcium [Mass/Vol] 8.6 mg/dL Normal 8.6-10.[address] [facility] Comment on above: Performed By: #### L [id number] ####[facility] (BEAKER)[address] [place] [address] Chloride [Moles/Vol] 99 mmol/L Normal 98-107 [facility] Comment on above: Performed By: #### L [id number] ####[facility] (BEAKER)[address] [place] [address] CO2 [Moles/Vol] 30 mmol/L Normal 21-31 [facility] Comment on above: Performed By: #### L [id number] ####[facility] (BEAKER)[address] [place] [address] Creatinine [Mass/Vol] 1.45 mg/dL High 0.70-1.30 [facility] Comment on above: Performed By: #### L [id number] ####[facility] ([facility])[address] [place] [address] GLOMERULAR FILTRATION RATE ML/MIN/1.73 SQ M.PREDICTED 49.1 mL/min/1.73m*2 Low >60.0 [facility] Comment on above: Result Comment: The [facility]???s estimated glomerular filtration rate (eGFR) will no longer include consideration of race in its calculation. The National Kidney Foundation???s eGFR Task Force developed new recommendations for the estimation of the glomerular filtration rate in the [place] They recommend immediate implementation of the new equation refit without the race variable in all laboratories because the calculation does not include race. In addition to not including race in the calculation and reporting, it included diversity in its development, and has acceptable performance characteristics and potential consequences that do not disproportionately affect any one group of individuals. Performed By: #### L [id number] ####[facility] (BEAKER)[address] [place] [address] Glucose [Mass/Vol] 106 mg/dL High 70-[address] [facility] Comment on above: Performed By: #### L [id number] ####[facility] (BEAKER)[address] [place] [address] Potassium [Moles/Vol] 3.9 mmol/L Normal 3.5-5.1 [facility] Comment on above: Performed By: #### L [id number] ####[facility] (BEAKER)[address] [place] [address] Sodium [Moles/Vol] 137 mmol/L Normal 136-[address] [facility] Comment on above: Performed By: #### L [id number] ####[facility] ([facility] [place] [address] Urea nitrogen [Mass/Vol] 41 mg/dL High 7-25 [facility] Comment on above: Performed By: #### L [id number] ####[facility] ([facility] [place] [address] UREA NITROGEN/CREATININE (MASS RATIO) IN SER/PLAS 28.28 Normal [facility] Comment on above: Performed By: #### L [id number] ####[facility] ([facility] [place] [address] CBCon 10-23-2022 Erythrocyte distribution width (RBC) [Ratio] 16.2 % High 11.5-15.0 [facility] Comment on above: Performed By: #### L [id number] ####[facility] (BEAKER)[address] [place] [address] ERYTHROCYTE MEAN CORPUSCULAR HEMOGLOBIN CONCENTRATION (G/DL) BY AUTOMATED 29.4 g/dL Low 32.0-35.0 [facility] Comment on above: Performed By: #### L [id number] ####[facility] ([facility] [place] [address] Hematocrit (Bld) [Volume fraction] 48.6 % Normal 39.0-55.0 [facility] Comment on above: Performed By: #### L [id number] ####[facility] (BEAKER)[address] [place] [address] Hemoglobin (Bld) [Mass/Vol] 14.3 g/dL Normal 13.0-17.0 [facility] Comment on above: Performed By: #### L [id number] ####[facility] ([facility] [place] [address] MCH (RBC) [Entitic mass] 27.9 pg Normal 27.0-33.0 [facility] Comment on above: Performed By: #### L [id number] ####[facility] ([facility])[address] [place] [address] MCV (RBC) [Entitic vol] 94.7 fL Normal 82.0-98.0 [facility] Comment on above: Performed By: #### L [id number] ####[facility] ([facility])[address] [place] [address] PLATELETS (10*3/UL) IN BLOOD AUTOMATED COUNT 162 10*3/uL Normal 150-400 [facility] Comment on above: Performed By: #### L [id number] ####[facility] ([facility])[address] [place] [address] RBC (Bld) [#/Vol] 5.13 10*6/uL Normal 4.20-5.70 [facility] Comment on above: Performed By: #### L [id number] ####[facility] ([facility])[address] [place] [address] WBC (Bld) [#/Vol] 12.35 10*3/uL High 4.00-10.60 [facility] Comment on above: Performed By: #### L [id number] ####[facility] ([facility])[address] [place] [address] MAGNESIUMon 10-23-2022 Magnesium [Mass/Vol] 2.7 mg/dL Normal 1.9-2.7 [facility] Comment on above: Performed By: #### L [id number] ####[facility] ([facility] [place] [address] POCT GLUCOSE METER UNSOLICIT ED RESULTSon 10-23-2022 Glucose [Mass/Vol] 117 mg/dL High 70-[address] [facility] Comment on above: Result Comment: [email or web address] Performed By: #### L [id number] ####[facility] ([employer])[address] [place] [address] Glucose [Mass/Vol] 89 mg/dL Normal 70-[address] [facility] Comment on above: Result Comment: [email or web address] Performed By: #### L [id number] ####[facility] ([employer])[address] [place] [address] PROTIME-INRon 10-23-2022 INR IN PPP BY COAGULATION ASSAY 2.16 High 0.90-1.10 [facility] Comment on above: Result Comment: [facility] P RECOMMENDED INR FOR WARFARIN THERAPY CONDITION INRPROPHYLAXIS OF VENOUS THROMBOSIS 2-3(HIGH-RISK SURGERY)TREATMENT OF VENOUS THROMBOSIS 2-3TREATMENT OF PULMONARY EMBOLISM 2-3PREVENTION OF SYSTEMIC EMBOLISM: 2-3 ACUTE MYOCARDIAL INFARCTION TISSUE HEART VALVES VALVULAR HEART DISEASE ATRIAL FIBRILLATION RECURRENT SYSTEMIC EMBOLISMMECHANICAL HEART VALVE 2.5-3.5 FROM: ORAL ANTICOAGULANTS. MECHANISM OF ACTION, CLINICAL EFFECTIVENESS, AND OPTIMAL THERAPEUTIC RANGE. CHEST 1995;108:231S-246S. Performed By: #### L [id number] ####[facility] ([employer])[address] [place] [address] PROTHROMBIN TIME (PT) IN PPP BY COAGULATION ASSAY 23.7 Seconds High 12.3-14.8 [facility] Comment on above: Performed By: #### L [id number] ####[facility] ([employer])[address] [place] [address] INR IN PPP BY COAGULATION ASSAY 2.13 High 0.90-1.10 [facility] Comment on above: Result Comment: [facility] P RECOMMENDED INR FOR WARFARIN THERAPY CONDITION INRPROPHYLAXIS OF VENOUS THROMBOSIS 2-3(HIGH-RISK SURGERY)TREATMENT OF VENOUS THROMBOSIS 2-3TREATMENT OF PULMONARY EMBOLISM 2-3PREVENTION OF SYSTEMIC EMBOLISM: 2-3 ACUTE MYOCARDIAL INFARCTION TISSUE HEART VALVES VALVULAR HEART DISEASE ATRIAL FIBRILLATION RECURRENT SYSTEMIC EMBOLISMMECHANICAL HEART VALVE 2.5-3.5 FROM: ORAL ANTICOAGULANTS. MECHANISM OF ACTION, CLINICAL EFFECTIVENESS, AND OPTIMAL THERAPEUTIC RANGE. CHEST 1995;108:231S-246S. Performed By: #### L [id number] ####[facility] [employer])[address] [place] [address] PROTHROMBIN TIME (PT) IN PPP BY COAGULATION ASSAY 23.4 Seconds High 12.3-14.8 [facility] Comment on above: Performed By: #### L [id number] ####[facility] [employer])[address] [employer] [place] [address] BASIC METABOLIC PANELon 12-0 Anion gap [Moles/Vol] 9 mmol/L Normal 7-20 [facility] Comment on above: Performed By: #### L [id number] ####[facility] ([employer])[address] [employer] [place] [address] Calcium [Mass/Vol] 9.0 mg/dL Normal 8.6-10.[address] [facility] Comment on above: Performed By: #### L [id number] ####[facility] ([employer])[address] [place] [address] Chloride [Moles/Vol] 96 mmol/L Low 98-107 [facility] Comment on above: Performed By: #### L [id number] ####[facility] ([facility])[address] [place] [address] CO2 [Moles/Vol] 35 mmol/L High 21-31 [facility] Comment on above: Performed By: #### L [id number] ####[facility] ([facility])[address] [place] [address] Creatinine [Mass/Vol] 1.49 mg/dL High 0.70-1.30 [facility] Comment on above: Performed By: #### L [id number] ####[facility] ([facility])[address] [place] [address] GLOMERULAR FILTRATION RATE ML/MIN/1.73 SQ M.PREDICTED 47.5 mL/min/1.73m*2 Low >60.0 [facility] Comment on above: Result Comment: [facility]???s estimated glomerular filtration rate (eGFR) will no longer include consideration of race in its calculation. The National Kidney Foundation???s eGFR Task Force developed new recommendations for the estimation of the glomerular filtration rate in the [place] They recommend immediate implementation of the new equation refit without the race variable in all laboratories because the calculation does not include race. In addition to not including race in the calculation and reporting, it included diversity in its development, and has acceptable performance characteristics and potential consequences that do not disproportionately affect any one group of individuals. Performed By: #### L [id number] ####[facility] ([facility])[address] [place] [address] Glucose [Mass/Vol] 92 mg/dL Normal 70-[address] [facility] Comment on above: Performed By: #### L [id number] ####[facility] ([facility])[address] [place] [address] Potassium [Moles/Vol] 4.0 mmol/L Normal 3.5-5.1 [facility] Comment on above: Performed By: #### L [id number] ####[facility] (BEAKER)[address] [place] [address] Sodium [Moles/Vol] 140 mmol/L Normal 136-[address] [facility] Comment on above: Performed By: #### L [id number] ####[facility] (BEAKER)[address] [place] [address] Urea nitrogen [Mass/Vol] 45 mg/dL High 7-25 [facility] Comment on above: Performed By: #### L [id number] ####[facility] (BEAKER)[address] [place] [address] UREA NITROGEN/CREATININE (MASS RATIO) IN SER/PLAS 30.20 Normal [facility] Comment on above: Performed By: #### L [id number] ####[facility] (BEAKER)[address] [place] [address] CBCon 10-22-2022 Erythrocyte distribution width (RBC) [Ratio] 16.2 % High 11.5-15.0 [facility] Comment on above: Performed By: #### L [id number] ####[facility] (BEAKER)[address] [place] [address] ERYTHROCYTE MEAN CORPUSCULAR HEMOGLOBIN CONCENTRATION (G/DL) BY AUTOMATED 30.9 g/dL Low 32.0-35.0 [facility] Comment on above: Performed By: #### L [id number] ####[facility] (BEAKER)[address] [place], [place] [address] Hematocrit (Bld) [Volume fraction] 48.6 % Normal 39.0-55.0 [facility] Comment on above: Performed By: #### L [id number] ####[facility] (BEAKER)[address] [place], [place] [address] Hemoglobin (Bld) [Mass/Vol] 15.0 g/dL Normal 13.0-17.0 [facility] Comment on above: Performed By: #### L [id number] ####[facility] (BEAKER)[address] [place] [address] MCH (RBC) [Entitic mass] 28.0 pg Normal 27.0-33.0 [facility] Comment on above: Performed By: #### L [id number] ####[facility] ([facility])[address] [place] [address] MCV (RBC) [Entitic vol] 90.8 fL Normal 82.0-98.0 [facility] Comment on above: Performed By: #### L [id number] ####[facility] ([facility])[address] [place] [address] PLATELETS (10*3/UL) IN BLOOD AUTOMATED COUNT 177 10*3/uL Normal 150-400 [facility] Comment on above: Performed By: #### L [id number] ####[facility] ([facility])[address] [place] [address] RBC (Bld) [#/Vol] 5.35 10*6/uL Normal 4.20-5.70 [facility] Comment on above: Performed By: #### L [id number] ####[facility] ([facility])[address] [place] [address] WBC (Bld) [#/Vol] 13.31 10*3/uL High 4.00-10.60 [facility] Comment on above: Performed By: #### L [id number] ####[facility] ([facility])[address] [place] [address] DIGOXIN LEVELon 10-22-2022 DIGOXIN (NG/ML) IN SER/PLAS 1.0 ng/mL Normal 0.7-2 [facility] Comment on above: Performed By: #### L [id number] ####[facility] ([facility])[address] [place] [address] MAGNESIUMon 10-22-2022 Magnesium [Mass/Vol] 2.6 mg/dL Normal 1.9-2.7 [facility] Comment on above: Performed By: #### L [id number] ####[facility] ([facility])[address] [place] [address] POCT GLUCOSE METER UNSOLICIT ED RESULTSon 10-22-2022 Glucose [Mass/Vol] 110 mg/dL High 70-[address] [facility] Comment on above: Result Comment: [email or web address] Performed By: #### L [id number] ####[facility] ([facility])[address] [place] [address] Glucose [Mass/Vol] 101 mg/dL Normal 70-[address] [facility] Comment on above: Result Comment: [email or web address] Performed By: #### L [id number] ####[facility] ([facility])[address] [place] [address] Glucose [Mass/Vol] 94 mg/dL Normal 70-[address] [facility] Comment on above: Result Comment: pcre asa Performed By: #### L [id number] ####[facility] ([facility])[address] [place] [address] Glucose [Mass/Vol] 76 mg/dL Normal 70-[address] [facility] Comment on above: Result Comment: pcre asa Performed By: #### L [id number] ####[facility] ([facility])[address] [place] [address] PROTIME-INRon 10-22-2022 INR IN PPP BY COAGULATION ASSAY 1.86 High 0.90-1.10 [facility] Comment on above: Result Comment: [facility] P RECOMMENDED INR FOR WARFARIN THERAPY CONDITION INRPROPHYLAXIS OF VENOUS THROMBOSIS 2-3(HIGH-RISK SURGERY)TREATMENT OF VENOUS THROMBOSIS 2-3TREATMENT OF PULMONARY EMBOLISM 2-3PREVENTION OF SYSTEMIC EMBOLISM: 2-3 ACUTE MYOCARDIAL INFARCTION TISSUE HEART VALVES VALVULAR HEART DISEASE ATRIAL FIBRILLATION RECURRENT SYSTEMIC EMBOLISMMECHANICAL HEART VALVE 2.5-3.5 FROM: ORAL ANTICOAGULANTS. MECHANISM OF ACTION, CLINICAL EFFECTIVENESS, AND OPTIMAL THERAPEUTIC RANGE. CHEST 1995;108:231S-246S. Performed By: #### L [id number] ####[facility] ([facility])[address] [place] [address] PROTHROMBIN TIME (PT) IN PPP BY COAGULATION ASSAY 21.1 Seconds High 12.3-14.8 [facility] Comment on above: Performed By: #### L [id number] ####[facility] ([facility])[address] [place] [address] BASIC METABOLIC PANELon 12-0 Anion gap [Moles/Vol] 6 mmol/L Low 7-20 [facility] Comment on above: Performed By: #### L [id number] ####[facility] ([facility])[address] [place] [address] Calcium [Mass/Vol] 8.8 mg/dL Normal 8.6-10.[address] [facility] Comment on above: Performed By: #### L [id number] ####[facility] ([facility])[address] [place] [address] Chloride [Moles/Vol] 97 mmol/L Low 98-107 [facility] Comment on above: Performed By: #### L [id number] ####[facility] ([facility] [place] [address] CO2 [Moles/Vol] 39 mmol/L High 21-31 [facility] Comment on above: Performed By: #### L [id number] ####[facility] ([facility] [place] [address] Creatinine [Mass/Vol] 1.60 mg/dL High 0.70-1.30 [facility] Comment on above: Performed By: #### L [id number] ####[facility] ([facility] [place] [address] GLOMERULAR FILTRATION RATE ML/MIN/1.73 SQ M.PREDICTED 43.6 mL/min/1.73m*2 Low >60.0 [facility] Comment on above: Result Comment: [facility]???s estimated glomerular filtration rate (eGFR) will no longer include consideration of race in its calculation. The National Kidney Foundation???s eGFR Task Force developed new recommendations for the estimation of the glomerular filtration rate in the [place] They recommend immediate implementation of the new equation refit without the race variable in all laboratories because the calculation does not include race. In addition to not including race in the calculation and reporting, it included diversity in its development, and has acceptable performance characteristics and potential consequences that do not disproportionately affect any one group of individuals. Performed By: #### L [id number] ####[facility] ([facility])[address] [place] [address] Glucose [Mass/Vol] 93 mg/dL Normal 70-[address] [facility] Comment on above: Performed By: #### L [id number] ####[facility] ([facility])[address] [place] [address] Potassium [Moles/Vol] 3.9 mmol/L Normal 3.5-5.1 [facility] Comment on above: Performed By: #### L [id number] ####[facility] ([facility])[address] [place] [address] Sodium [Moles/Vol] 142 mmol/L Normal 136-[address] [facility] Comment on above: Performed By: #### L [id number] ####[facility] ([facility])[address] [place] [address] Urea nitrogen [Mass/Vol] 45 mg/dL High 7-25 [facility] Comment on above: Performed By: #### L [id number] ####[facility] ([facility])[address] [place] [address] UREA NITROGEN/CREATININE (MASS RATIO) IN SER/PLAS 28.13 Normal [facility] Comment on above: Performed By: #### L [id number] ####[facility] ([facility])[address] [place] [address] CBCon 10-21-2022 Erythrocyte distribution width (RBC) [Ratio] 16.5 % High 11.5-15.0 [facility] Comment on above: Performed By: #### L [id number] ####[facility] ([facility])[address] [place] [address] ERYTHROCYTE MEAN CORPUSCULAR HEMOGLOBIN CONCENTRATION (G/DL) BY AUTOMATED 31.8 g/dL Low 32.0-35.0 [facility] Comment on above: Performed By: #### L [id number] ####[facility] ([facility])[address] [place] [address] Hematocrit (Bld) [Volume fraction] 47.1 % Normal 39.0-55.0 [facility] Comment on above: Performed By: #### L [id number] ####[facility] ([facility])[address] [place] [address] Hemoglobin (Bld) [Mass/Vol] 15.0 g/dL Normal 13.0-17.0 [facility] Comment on above: Performed By: #### L [id number] ####[facility] ([facility])[address] [place] [address] MCH (RBC) [Entitic mass] 28.7 pg Normal 27.0-33.0 [facility] Comment on above: Performed By: #### L [id number] ####[facility] ([facility])[address] [place] [address] MCV (RBC) [Entitic vol] 90.2 fL Normal 82.0-98.0 [facility] Comment on above: Performed By: #### L [id number] ####[facility] ([facility])[address] [place] [address] PLATELETS (10*3/UL) IN BLOOD AUTOMATED COUNT 176 10*3/uL Normal 150-400 [facility] Comment on above: Performed By: #### L [id number] ####[facility] ([facility])[address] [place] [address] RBC (Bld) [#/Vol] 5.22 10*6/uL Normal 4.20-5.70 [facility] Comment on above: Performed By: #### L [id number] ####[facility] ([facility])[address] [place] [address] WBC (Bld) [#/Vol] 13.87 10*3/uL High 4.00-10.60 [facility] Comment on above: Performed By: #### L [id number] ####[facility] ([facility])[address] [place] [address] MAGNESIUMon 10-21-2022 Magnesium [Mass/Vol] 2.6 mg/dL Normal 1.9-2.7 [facility] Comment on above: Performed By: #### L [id number] ####[facility] ([facility])[address] [place] [address] POCT GLUCOSE METER UNSOLICIT ED RESULTSon 10-21-2022 Glucose [Mass/Vol] 172 mg/dL High 70-[address] [facility] Comment on above: Result Comment: [email or web address] Performed By: #### L [id number] ####[facility] ([facility])[address] [place] [address] Glucose [Mass/Vol] 151 mg/dL High 70-[address] [facility] Comment on above: Result Comment: [email or web address] Performed By: #### L [id number] ####[facility] ([facility])[address] [place] [address] Glucose [Mass/Vol] 106 mg/dL High 70-[address] [facility] Comment on above: Result Comment: [email or web address] Performed By: #### L [id number] ####[facility] ([facility])[address] [place] [address] PROTIME-INRon 10-21-2022 INR IN PPP BY COAGULATION ASSAY 1.73 High 0.90-1.10 [facility] Comment on above: Result Comment: [facility] P RECOMMENDED INR FOR WARFARIN THERAPY CONDITION INRPROPHYLAXIS OF VENOUS THROMBOSIS 2-3(HIGH-RISK SURGERY)TREATMENT OF VENOUS THROMBOSIS 2-3TREATMENT OF PULMONARY EMBOLISM 2-3PREVENTION OF SYSTEMIC EMBOLISM: 2-3 ACUTE MYOCARDIAL INFARCTION TISSUE HEART VALVES VALVULAR HEART DISEASE ATRIAL FIBRILLATION RECURRENT SYSTEMIC EMBOLISMMECHANICAL HEART VALVE 2.5-3.5 FROM: ORAL ANTICOAGULANTS. MECHANISM OF ACTION, CLINICAL EFFECTIVENESS, AND OPTIMAL THERAPEUTIC RANGE. CHEST 1995;108:231S-246S. Performed By: #### L [id number] ####[facility] ([employer])[address] [place] [address] PROTHROMBIN TIME (PT) IN PPP BY COAGULATION ASSAY 20.0 Seconds High 12.3-14.8 [facility] Comment on above: Performed By: #### L [id number] ####[facility] ([employer])[address] [place] [address] 30on 10-20-2022 30 Normal [facility] BASIC METABOLIC PANELon 12-0 Anion gap [Moles/Vol] 7 mmol/L Normal 7-20 [facility] Comment on above: Performed By: #### L [id number] ####[facility] ([employer])[address] [place] [address] Calcium [Mass/Vol] 8.5 mg/dL Low 8.6-10.[address] [facility] Comment on above: Performed By: #### L [id number] ####[facility] ([employer])[address] [place] [address] Chloride [Moles/Vol] 97 mmol/L Low 98-107 [facility] Comment on above: Performed By: #### L [id number] ####[facility] ([facility])[address] [place] [address] CO2 [Moles/Vol] 36 mmol/L High 21-31 [facility] Comment on above: Performed By: #### L [id number] ####[facility] ([facility])[address] [place] [address] Creatinine [Mass/Vol] 1.44 mg/dL High 0.70-1.30 [facility] Comment on above: Performed By: #### L [id number] ####[facility] ([facility])[address] [place] [address] GLOMERULAR FILTRATION RATE ML/MIN/1.73 SQ M.PREDICTED 49.5 mL/min/1.73m*2 Low >60.0 [facility] Comment on above: Result Comment: The [facility]???s estimated glomerular filtration rate (eGFR) will no longer include consideration of race in its calculation. The National Kidney Foundation???s eGFR Task Force developed new recommendations for the estimation of the glomerular filtration rate in the [place] They recommend immediate implementation of the new equation refit without the race variable in all laboratories because the calculation does not include race. In addition to not including race in the calculation and reporting, it included diversity in its development, and has acceptable performance characteristics and potential consequences that do not disproportionately affect any one group of individuals. Performed By: #### L [id number] ####[facility] ([facility])[address] [place] [address] Glucose [Mass/Vol] 70 mg/dL Normal 70-[address] [facility] Comment on above: Performed By: #### L [id number] ####[facility] ([facility])[address] [place] [address] Potassium [Moles/Vol] 3.7 mmol/L Normal 3.5-5.1 [facility] Comment on above: Performed By: #### L [id number] ####[facility] ([facility])[address] [place] [address] Sodium [Moles/Vol] 140 mmol/L Normal 136-[address] [facility] Comment on above: Performed By: #### L [id number] ####[facility] ([facility])[address] [place] [address] Urea nitrogen [Mass/Vol] 42 mg/dL High 7-25 [facility] Comment on above: Performed By: #### L [id number] ####[facility] ([facility])[address] [place] [address] UREA NITROGEN/CREATININE (MASS RATIO) IN SER/PLAS 29.17 Normal [facility] Comment on above: Performed By: #### L [id number] ####[facility] ([facility])[address] [place] [address] CBCon 10-20-2022 Erythrocyte distribution width (RBC) [Ratio] 16.4 % High 11.5-15.0 [facility] Comment on above: Performed By: #### L [id number] ####[facility] ([facility])[address] [place] [address] ERYTHROCYTE MEAN CORPUSCULAR HEMOGLOBIN CONCENTRATION (G/DL) BY AUTOMATED 31.6 g/dL Low 32.0-35.0 [facility] Comment on above: Performed By: #### L [id number] ####[facility] ([facility])[address] [place] [address] Hematocrit (Bld) [Volume fraction] 45.9 % Normal 39.0-55.0 [facility] Comment on above: Performed By: #### L [id number] ####[facility] ([facility] [place] [address] Hemoglobin (Bld) [Mass/Vol] 14.5 g/dL Normal 13.0-17.0 [facility] Comment on above: Performed By: #### L [id number] ####[facility] ([facility] [place] [address] MCH (RBC) [Entitic mass] 28.5 pg Normal 27.0-33.0 [facility] Comment on above: Performed By: #### L [id number] ####[facility] ([facility])[address] [place] [address] MCV (RBC) [Entitic vol] 90.2 fL Normal 82.0-98.0 [facility] Comment on above: Performed By: #### L [id number] ####[facility] ([facility])[address] [place] [address] PLATELETS (10*3/UL) IN BLOOD AUTOMATED COUNT 165 10*3/uL Normal 150-400 [facility] Comment on above: Performed By: #### L [id number] ####[facility] ([facility])[address] [place] [address] RBC (Bld) [#/Vol] 5.09 10*6/uL Normal 4.20-5.70 [facility] Comment on above: Performed By: #### L [id number] ####[facility] ([facility])[address] [place] [address] WBC (Bld) [#/Vol] 14.43 10*3/uL High 4.00-10.60 [facility] Comment on above: Performed By: #### L [id number] ####[facility] ([facility])[address] [place] [address] DIGOXIN LEVELon 10-20-2022 DIGOXIN (NG/ML) IN SER/PLAS 1.1 ng/mL Normal 0.7-2 [facility] Comment on above: Performed By: #### L [id number] ####[facility] ([facility])[address] [place] [address] MAGNESIUMon 10-20-2022 Magnesium [Mass/Vol] 2.5 mg/dL Normal 1.9-2.7 [facility] Comment on above: Performed By: #### L [id number] ####[facility] ([facility])[address] [place] [address] POCT GLUCOSE METER UNSOLICIT ED RESULTSon 10-20-2022 Glucose [Mass/Vol] 177 mg/dL High 70-[address] [facility] Comment on above: Result Comment: [email or web address] Performed By: #### L [id number] ####[facility] ([facility])[address] [place] [address] Glucose [Mass/Vol] 137 mg/dL High 70-[address] [facility] Comment on above: Result Comment: [email or web address] Performed By: #### L [id number] ####[facility] ([facility])[address] [place] [address] Glucose [Mass/Vol] 175 mg/dL High 70-[address] [facility] Comment on above: Result Comment: [email or web address] Performed By: #### L [id number] ####[facility] ([facility])[address] [place] [address] Glucose [Mass/Vol] 75 mg/dL Normal 70-[address] [facility] Comment on above: Result Comment: [email or web address] Performed By: #### L [id number] ####[facility] ([facility])[address] [place] [address] PROTIME-INRon 10-20-2022 INR IN PPP BY COAGULATION ASSAY 1.69 High 0.90-1.10 [facility] Comment on above: Result Comment: [facility] P RECOMMENDED INR FOR WARFARIN THERAPY CONDITION INRPROPHYLAXIS OF VENOUS THROMBOSIS 2-3(HIGH-RISK SURGERY)TREATMENT OF VENOUS THROMBOSIS 2-3TREATMENT OF PULMONARY EMBOLISM 2-3PREVENTION OF SYSTEMIC EMBOLISM: 2-3 ACUTE MYOCARDIAL INFARCTION TISSUE HEART VALVES VALVULAR HEART DISEASE ATRIAL FIBRILLATION RECURRENT SYSTEMIC EMBOLISMMECHANICAL HEART VALVE 2.5-3.5 FROM: ORAL ANTICOAGULANTS. MECHANISM OF ACTION, CLINICAL EFFECTIVENESS, AND OPTIMAL THERAPEUTIC RANGE. CHEST 1995;108:231S-246S. Performed By: #### L [id number] ####[facility] ([facility] [place] [address] PROTHROMBIN TIME (PT) IN PPP BY COAGULATION ASSAY 19.6 Seconds High 12.3-14.8 [facility] Comment on above: Performed By: #### L [id number] ####[facility] ([facility])[address] [place] [address] BASIC METABOLIC PANELon 12-0 Anion gap [Moles/Vol] 7 mmol/L Normal 7-20 [facility] Comment on above: Performed By: #### L [id number] ####[facility] ([facility])[address] [place] [address] Calcium [Mass/Vol] 8.6 mg/dL Normal 8.6-10.[address] [facility] Comment on above: Performed By: #### L [id number] ####[facility] ([facility])[address] [place] [address] Chloride [Moles/Vol] 101 mmol/L Normal 98-107 [facility] Comment on above: Performed By: #### L [id number] ####[facility] ([facility])[address] [place] [address] CO2 [Moles/Vol] 30 mmol/L Normal 21-31 [facility] Comment on above: Performed By: #### L [id number] ####[facility] ([facility])[address] [place] [address] Creatinine [Mass/Vol] 1.38 mg/dL High 0.70-1.30 [facility] Comment on above: Performed By: #### L [id number] ####[facility] ([facility])[address] [place] [address] GLOMERULAR FILTRATION RATE ML/MIN/1.73 SQ M.PREDICTED 52.2 mL/min/1.73m*2 Low >60.0 [facility] Comment on above: Result Comment: [facility]???s estimated glomerular filtration rate (eGFR) will no longer include consideration of race in its calculation. The National Kidney Foundation???s eGFR Task Force developed new recommendations for the estimation of the glomerular filtration rate in the [place] They recommend immediate implementation of the new equation refit without the race variable in all laboratories because the calculation does not include race. In addition to not including race in the calculation and reporting, it included diversity in its development, and has acceptable performance characteristics and potential consequences that do not disproportionately affect any one group of individuals. Performed By: #### L [id number] ####[facility] ([facility])[address] [place] [place] [address] Glucose [Mass/Vol] 102 mg/dL High 70-[address] [facility] Comment on above: Performed By: #### L [id number] ####[facility] ([facility])[address] [place] [place] [address] Potassium [Moles/Vol] 3.9 mmol/L Normal 3.5-5.1 [facility] Comment on above: Performed By: #### L [id number] ####[facility] ([facility])[address] [place] [place] [address] Sodium [Moles/Vol] 138 mmol/L Normal 136-[address] [facility] Comment on above: Performed By: #### L [id number] ####[facility] ([facility])[address] [place] [place] [address] Urea nitrogen [Mass/Vol] 38 mg/dL High 7-25 [facility] Comment on above: Performed By: #### L [id number] ####[facility] ([facility])[address] [place] [place] [address] UREA NITROGEN/CREATININE (MASS RATIO) IN SER/PLAS 27.54 Normal [facility] Comment on above: Performed By: #### L [id number] ####[facility] ([facility])[address] [place] [address] CBCon 10-19-2022 Erythrocyte distribution width (RBC) [Ratio] 16.4 % High 11.5-15.0 [facility] Comment on above: Performed By: #### L [id number] ####[facility] ([facility])[address] [place] [address] ERYTHROCYTE MEAN CORPUSCULAR HEMOGLOBIN CONCENTRATION (G/DL) BY AUTOMATED 31.7 g/dL Low 32.0-35.0 [facility] Comment on above: Performed By: #### L [id number] ####[facility] ([facility])[address] [place] [address] Hematocrit (Bld) [Volume fraction] 43.6 % Normal 39.0-55.0 [facility] Comment on above: Performed By: #### L [id number] ####[facility] ([facility])[address] [place] [address] Hemoglobin (Bld) [Mass/Vol] 13.8 g/dL Normal 13.0-17.0 [facility] Comment on above: Performed By: #### L [id number] ####[facility] ([facility])[address] [place] [address] MCH (RBC) [Entitic mass] 28.8 pg Normal 27.0-33.0 [facility] Comment on above: Performed By: #### L [id number] ####[facility] ([facility])[address] [place] [address] MCV (RBC) [Entitic vol] 90.8 fL Normal 82.0-98.0 [facility] Comment on above: Performed By: #### L [id number] ####[facility] ([facility])[address] [place] [address] PLATELETS (10*3/UL) IN BLOOD AUTOMATED COUNT 155 10*3/uL Normal 150-400 [facility] Comment on above: Performed By: #### L [id number] ####[facility] ([facility])[address] [place] [address] RBC (Bld) [#/Vol] 4.80 10*6/uL Normal 4.20-5.70 [facility] Comment on above: Performed By: #### L [id number] ####[facility] ([facility])[address] [place] [address] WBC (Bld) [#/Vol] 15.32 10*3/uL High 4.00-10.60 [facility] Comment on above: Performed By: #### L [id number] ####[facility] ([facility])[address] [place] [address] CONSULTon 10-19-2022 CONSULT Normal [facility] CONSULT Normal [facility] DIGOXIN LEVELon 10-19-2022 DIGOXIN (NG/ML) IN SER/PLAS 1.1 ng/mL Normal 0.7-2 [facility] Comment on above: Performed By: #### L [id number] ####[facility] ([facility])[address] [place] [address] MAGNESIUMon 10-19-2022 Magnesium [Mass/Vol] 2.5 mg/dL Normal 1.9-2.7 [facility] Comment on above: Performed By: #### L [id number] ####[facility] ([facility])[address] [place] [address] POCT GLUCOSE METER UNSOLICIT ED RESULTSon 10-19-2022 Glucose [Mass/Vol] 152 mg/dL High 70-[address] [facility] Comment on above: Result Comment: whay war Performed By: #### L [id number] ####[facility] ([facility])[address] [place] [address] Glucose [Mass/Vol] 89 mg/dL Normal 70-[address] [facility] Comment on above: Result Comment: [email or web address] Performed By: #### L [id number] ####[facility] ([facility])[address] [place] [address] PROTIME-INRon 10-19-2022 INR IN PPP BY COAGULATION ASSAY 1.86 High 0.90-1.10 [facility] Comment on above: Result Comment: ACC[facility] P RECOMMENDED INR FOR WARFARIN THERAPY CONDITION INRPROPHYLAXIS OF VENOUS THROMBOSIS 2-3(HIGH-RISK SURGERY)TREATMENT OF VENOUS THROMBOSIS 2-3TREATMENT OF PULMONARY EMBOLISM 2-3PREVENTION OF SYSTEMIC EMBOLISM: 2-3 ACUTE MYOCARDIAL INFARCTION TISSUE HEART VALVES VALVULAR HEART DISEASE ATRIAL FIBRILLATION RECURRENT SYSTEMIC EMBOLISMMECHANICAL HEART VALVE 2.5-3.5 FROM: ORAL ANTICOAGULANTS. MECHANISM OF ACTION, CLINICAL EFFECTIVENESS, AND OPTIMAL THERAPEUTIC RANGE. CHEST 1995;108:231S-246S. Performed By: #### L [id number] ####[facility] [employer])[address] [place] [address] PROTHROMBIN TIME (PT) IN PPP BY COAGULATION ASSAY 21.1 Seconds High 12.3-14.8 [facility] Comment on above: Performed By: #### L [id number] ####[facility] [employer])[address] [place] [address] B-TYPE NATRIURETIC PEPTIDEon 10-18-2022 Natriuretic peptide B (Bld) [Mass/Vol] 885 pg/mL High 0-100 [facility] Comment on above: Performed By: #### L [id number] ####[facility] [employer])[address] [place] [address] BASIC METABOLIC PANELon 09-21 Anion gap [Moles/Vol] 11 mmol/L Normal 7-20 [facility] Comment on above: Performed By: #### L [id number] ####[facility] [employer])[address] [place] [address] Calcium [Mass/Vol] 8.8 mg/dL Normal 8.6-10.[address] [facility] Comment on above: Performed By: #### L [id number] ####[facility] ([employer])[address] [place] [address] Chloride [Moles/Vol] 98 mmol/L Normal 98-107 [facility] Comment on above: Performed By: #### L [id number] ####[facility] ([facility])[address] [place] [address] CO2 [Moles/Vol] 30 mmol/L Normal 21-31 [facility] Comment on above: Performed By: #### L [id number] ####[facility] ([facility])[address] [place] [address] Creatinine [Mass/Vol] 1.49 mg/dL High 0.70-1.30 [facility] Comment on above: Performed By: #### L [id number] ####[facility] ([facility])[address] [place] [address] GLOMERULAR FILTRATION RATE ML/MIN/1.73 SQ M.PREDICTED 47.5 mL/min/1.73m*2 Low >60.0 [facility] Comment on above: Result Comment: The [facility]???s estimated glomerular filtration rate (eGFR) will no longer include consideration of race in its calculation. The National Kidney Foundation???s eGFR Task Force developed new recommendations for the estimation of the glomerular filtration rate in the [place] They recommend immediate implementation of the new equation refit without the race variable in all laboratories because the calculation does not include race. In addition to not including race in the calculation and reporting, it included diversity in its development, and has acceptable performance characteristics and potential consequences that do not disproportionately affect any one group of individuals. Performed By: #### L [id number] ####[facility] ([facility] [place] [address] Glucose [Mass/Vol] 116 mg/dL High 70-[address] [facility] Comment on above: Performed By: #### L [id number] ####[facility] ([facility] [place] [address] Potassium [Moles/Vol] 4.3 mmol/L Normal 3.5-5.1 [facility] Comment on above: Performed By: #### L [id number] ####[facility] ([facility])[address] [place] [address] Sodium [Moles/Vol] 139 mmol/L Normal 136-[address] [facility] Comment on above: Performed By: #### L [id number] ####[facility] ([facility])[address] [place] [address] Urea nitrogen [Mass/Vol] 40 mg/dL High 7-25 [facility] Comment on above: Performed By: #### L [id number] ####[facility] ([facility])[address] [place] [address] UREA NITROGEN/CREATININE (MASS RATIO) IN SER/PLAS 26.85 Normal [facility] Comment on above: Performed By: #### L [id number] ####[facility] ([facility])[address] [place] [address] BLOOD CULTUREon 10-18-2022 Bacteria identified Cx Nom (Bld) No growth at 5 days Normal [facility] Comment on above: Order Comment: From a different site than #1. Performed By: #### L [id number] ####[facility] ([facility])[address] [place] [address] C-REACTIVE PROTEINon 022 C REACTIVE PROTEIN (MG/L) IN SER/PLAS 3.2 mg/L Normal 0.0-7.0 [facility] Comment on above: Performed By: #### L [id number] ####[facility] ([facility])[address] [place] [address] CBC WITH AUTO DIFFERENTIALon 10-18-2022 Basophils (Bld) [#/Vol] 0.02 10*3/uL Normal 0.00-0.20 [facility] Comment on above: Performed By: #### L [id number] ####[facility] ([facility])[address] [place] [address] Basophils/100 WBC (Bld) 0.1 % Normal 0.0-1.0 [facility] Comment on above: Performed By: #### L [id number] ####[facility] ([facility])[address] [place] [address] Eosinophils (Bld) [#/Vol] 0.01 10*3/uL Normal 0.00-0.50 [facility] Comment on above: Performed By: #### L [id number] ####[facility] ([facility])[address] [place] [address] Eosinophils/100 WBC (Bld) 0.1 % Normal 0.0-6.0 [facility] Comment on above: Performed By: #### L [id number] ####[facility] ([facility])[address] [place] [address] ERYTHROCYTE DISTRIBUTION WIDTH (RATIO) STANDARD DEVIATION 53.5 Normal [facility] Comment on above: Performed By: #### L [id number] ####[facility] ([facility])[address] [place] [address] Erythrocyte distribution width (RBC) [Ratio] 16.4 % High 11.5-15.0 [facility] Comment on above: Performed By: #### L [id number] ####[facility] ([facility])[address] [place] [address] ERYTHROCYTE MEAN CORPUSCULAR HEMOGLOBIN CONCENTRATION (G/DL) BY AUTOMATED 32.2 g/dL Normal 32.0-35.0 [facility] Comment on above: Performed By: #### L [id number] ####[facility] ([facility])[address] [place] [address] Hematocrit (Bld) [Volume fraction] 44.1 % Normal 39.0-55.0 [facility] Comment on above: Performed By: #### L [id number] ####[facility] ([facility])[address] [place] [address] Hemoglobin (Bld) [Mass/Vol] 14.2 g/dL Normal 13.0-17.0 [facility] Comment on above: Performed By: #### L [id number] ####[facility] ([facility])[address] [place] [address] Immature granulocytes (Bld) [#/Vol] 0.13 10*3/uL Normal 0.00-0.20 [facility] Comment on above: Performed By: #### L [id number] ####[facility] ([facility])[address] [place] [address] Immature granulocytes/100 WBC (Bld) 0.8 % Normal 0.0-1.0 [facility] Comment on above: Performed By: #### L [id number] ####[facility] ([facility])[address] [place] [address] Lymphocytes (Bld) [#/Vol] 1.21 10*3/uL Normal 1.20-4.00 [facility] Comment on above: Performed By: #### L [id number] ####[facility] ([facility])[address] [place] [address] Lymphocytes/100 WBC (Bld) 7.8 % Low 20.0-45.0 [facility] Comment on above: Performed By: #### L [id number] ####[facility] ([facility])[address] [place] [address] MCH (RBC) [Entitic mass] 29.2 pg Normal 27.0-33.0 [facility] Comment on above: Performed By: #### L [id number] ####[facility] ([facility]ER)[address] [place] [address] MCV (RBC) [Entitic vol] 90.6 fL Normal 82.0-98.0 [facility] Comment on above: Performed By: #### L [id number] ####[facility] ([facility])[address] [place] [address] Monocytes (Bld) [#/Vol] 0.53 10*3/uL Normal 0.10-1.00 [facility] Comment on above: Performed By: #### L [id number] ####[facility] ([facility])[address] [place] [address] Monocytes/100 WBC (Bld) 3.4 % Low 5.0-12.0 [facility] Comment on above: Performed By: #### L [id number] ####[facility] ([facility])[address] [place] [address] Neutrophils (Bld) [#/Vol] 13.66 10*3/uL High 1.60-7.60 [facility] Comment on above: Performed By: #### L [id number] ####[facility] ([facility])[address] [place] [address] Neutrophils/100 WBC (Bld) 87.8 % High 40.0-72.0 [facility] Comment on above: Performed By: #### L [id number] ####[facility] ([facility])[address] [place] [address] NRBC (PER 100 WBCS) BY AUTOMATED COUNT 0.0 % Normal 0.0-0.0 [facility] Comment on above: Performed By: #### L [id number] ####[facility] ([facility])[address] [place] [address] PLATELETS (10*3/UL) IN BLOOD AUTOMATED COUNT 184 10*3/uL Normal 150-400 [facility] Comment on above: Performed By: #### L [id number] ####[facility] ([facility])[address] [place] [address] RBC (Bld) [#/Vol] 4.87 10*6/uL Normal 4.20-5.70 [facility] Comment on above: Performed By: #### L [id number] ####[facility] ([facility])[address] [place] [address] WBC (Bld) [#/Vol] 15.56 10*3/uL High 4.00-10.60 [facility] Comment on above: Performed By: #### L [id number] ####[facility] ([facility])[address] [place] [address] COMPREHENSIVE METABOLIC PANE Bola 10-18-2022 Albumin [Mass/Vol] 3.9 g/dL Normal 3.5-5.[address] [facility] Comment on above: Performed By: #### L [id number] ####[facility] ([facility])[address] [place] [address] ALP [Catalytic activity/Vol] 90 U/L Normal 34-104 [facility] Comment on above: Performed By: #### L [id number] ####[facility] ([facility])[address] [place] [address] ALT [Catalytic activity/Vol] 31 U/L Normal 7-52 [facility] Comment on above: Performed By: #### L [id number] ####[facility] ([facility])[address] [place] [address] Anion gap [Moles/Vol] 9 mmol/L Normal 7-20 [facility] Comment on above: Performed By: #### L [id number] ####[facility] ([facility])[address] [place] [address] AST [Catalytic activity/Vol] 25 U/L Normal 13-39 [facility] Comment on above: Performed By: #### L [id number] ####[facility] ([facility])[address] [place] [address] Bilirubin [Mass/Vol] 1.2 mg/dL High 0.3-1.0 [facility] Comment on above: Performed By: #### L [id number] ####[facility] ([facility])[address] [place] [address] Calcium [Mass/Vol] 8.7 mg/dL Normal 8.6-10.[address] [facility] Comment on above: Performed By: #### L [id number] ####[facility] ([facility])[address] [place] [address] Chloride [Moles/Vol] 99 mmol/L Normal 98-107 [facility] Comment on above: Performed By: #### L [id number] ####[facility] ([facility])[address] [place] [address] CO2 [Moles/Vol] 31 mmol/L Normal 21-31 [facility] Comment on above: Performed By: #### L [id number] ####[facility] ([facility])[address] [place] [address] Creatinine [Mass/Vol] 1.47 mg/dL High 0.70-1.30 [facility] Comment on above: Performed By: #### L [id number] ####[facility] ([facility])[address] [place] [address] GLOMERULAR FILTRATION RATE ML/MIN/1.73 SQ M.PREDICTED 48.3 mL/min/1.73m*2 Low >60.0 [facility] Comment on above: Result Comment: The [facility]???s estimated glomerular filtration rate (eGFR) will no longer include consideration of race in its calculation. The National Kidney Foundation???s eGFR Task Force developed new recommendations for the estimation of the glomerular filtration rate in the [place] They recommend immediate implementation of the new equation refit without the race variable in all laboratories because the calculation does not include race. In addition to not including race in the calculation and reporting, it included diversity in its development, and has acceptable performance characteristics and potential consequences that do not disproportionately affect any one group of individuals. Performed By: #### L [id number] ####[facility] ([facility])[address] [place] [address] Glucose [Mass/Vol] 124 mg/dL High 70-[address] [facility] Comment on above: Performed By: #### L [id number] ####[facility] ([facility])[address] [place] [address] Potassium [Moles/Vol] 4.3 mmol/L Normal 3.5-5.1 [facility] Comment on above: Performed By: #### L [id number] ####[facility] ([facility])[address] [place] [address] Protein [Mass/Vol] 6.7 g/dL Normal 6.0-8.[address] [facility] Comment on above: Performed By: #### L [id number] ####[facility] ([facility])[address] [place] [address] Sodium [Moles/Vol] 139 mmol/L Normal 136-[address] [facility] Comment on above: Performed By: #### L [id number] ####[facility] ([facility])[address] [place] [address] Urea nitrogen [Mass/Vol] 40 mg/dL High 7-25 [facility] Comment on above: Performed By: #### L [id number] ####[facility] ([facility])[address] [place] [address] UREA NITROGEN/CREATININE (MASS RATIO) IN SER/PLAS 27.21 Normal [facility] Comment on above: Performed By: #### L [id number] ####[facility] ([facility])[address] [place] [address] HEMOGLOBIN A1Con 10-18-2022 Glucose [Mass/Vol] 182.9 mg/dL Normal [facility] Comment on above: Performed By: #### L [id number] ####[facility] ([facility])[address] [place] [address] HbA1c (Bld) [Mass fraction] 8.0 % High 4.0-6.0 [facility] Comment on above: Performed By: #### L [id number] ####[facility] ([facility])[address] [place] [address] HPon 10-18-2022 HP Normal [facility] LACTIC ACID, PLASMAon 2021 LACTATE (MMOL/L) IN SER/PLAS 1.0 mmol/L Normal 0.5-2.2 [facility] Comment on above: Performed By: #### L [id number] ####[facility] ([facility])[address] [place] [address] LIPID PANELon 10-18-2022 CHOL/HDL 2.47 mg/dL Normal [facility] Comment on above: Performed By: #### L [id number] ####[facility] ([facility])[address] [place] [address] Cholesterol [Mass/Vol] 89 mg/dL Low 120-200 [facility] Comment on above: Performed By: #### L [id number] ####[facility] ([facility])[address] [place] [address] Magnesium [Mass/Vol] 92 mg/dL Normal 40-149 [facility] Comment on above: Result Comment: TRIG LYCERIDE REFERENCE RANGE:20 YEARS AND OLDER CARDIOVASCULAR RISKLESS THAN 150 mg/dL LOW [id number] TO 199 mg/dL BORDERLINE [id number] mg/dL AND GREATER HIGH RISK Performed By: #### L [id number] ####[facility] ([facility])[address] [place] [address] Magnesium [Mass/Vol] 35 mg/dL Normal 0-160 [facility] Comment on above: Performed By: #### L [id number] ####[facility] ([facility]ER)[address] [place] [address] Magnesium [Mass/Vol] 36 mg/dL Normal 23-92 [facility] Comment on above: Performed By: #### L [id number] ####[facility] ([facility])[address] [place] [address] NON HDL CHOL. (LDL+VLDL) 53 Normal [facility] Comment on above: Performed By: #### L [id number] ####[facility] ([facility]AKER)[address] [place] [address] TOTAL VLDL-C 18 mg/dL Normal 0-40 [facility] Comment on above: Performed By: #### L [id number] ####[facility] (BEAKER)[address] [place] [address] MAGNESIUMon 10-18-2022 Magnesium [Mass/Vol] 2.5 mg/dL Normal 1.9-2.7 [facility] Comment on above: Performed By: #### L [id number] ####[facility] ([facility])[address] [place] [address] MRSA/MSSA DNA NASALon 2021 MRSA DNA Negative Normal Negative, Invalid [facility] Comment on above: Performed By: #### L [id number] ####[facility] ([facility] [place] [address] MSSA DNA Positive Abnormal Negative, Invalid [facility] Comment on above: Performed By: #### L [id number] ####[facility] ([facility])[address] [place] [address] PHOSPHORUSon 10-18-2022 Magnesium [Mass/Vol] 4.6 mg/dL Normal 2.5-5.0 [facility] Comment on above: Performed By: #### L [id number] ####[facility] ([facility])[address] [place] [address] POCT GLUCOSE METER UNSOLICIT ED RESULTSon 10-18-2022 Glucose [Mass/Vol] 153 mg/dL High 70-[address] [facility] Comment on above: Result Comment: lbes cynthia Performed By: #### L [id number] ####[facility] ([facility])[address] [place] [address] PROCALCITONIN TESTon 022 PROCALCITONIN IN BLOOD 0.05 ng/mL Normal 0.00-0.10 [facility] Comment on above: Result Comment: Susp ected Lower Respiratory Tract Infection:0.1-0.25 ng/mL - Low likelihood for bacterial infection;Antibiotics discouraged.*>0.25 ng/mL - Increased likelihood bacterial infection;Antibiotics encouraged. Suspected Sepsis: Strongly consider initiating antibiotics in all unstable patients.0.1-0.5 ng/mL - Low likelihood for sepsis; Antibiotics discouraged.*>0.5 ng/mL - Increased likelihood sepsis; Antibiotics encouraged.>2.0 ng/mL - High risk of sepsis/septic shock; Antibiotics strongly encouraged. *Recommend retesting PCT within 6-12 hours if clinically indicated and initial PCT<0.5ng/mL Performed By: #### L [id number] ####[facility] ([employer])[address] [place] [address] PROTIME-INRon 10-18-2022 INR IN PPP BY COAGULATION ASSAY 2.09 High 0.90-1.10 [facility] Comment on above: Result Comment: [facility] P RECOMMENDED INR FOR WARFARIN THERAPY CONDITION INRPROPHYLAXIS OF VENOUS THROMBOSIS 2-3(HIGH-RISK SURGERY)TREATMENT OF VENOUS THROMBOSIS 2-3TREATMENT OF PULMONARY EMBOLISM 2-3PREVENTION OF SYSTEMIC EMBOLISM: 2-3 ACUTE MYOCARDIAL INFARCTION TISSUE HEART VALVES VALVULAR HEART DISEASE ATRIAL FIBRILLATION RECURRENT SYSTEMIC EMBOLISMMECHANICAL HEART VALVE 2.5-3.5 FROM: ORAL ANTICOAGULANTS. MECHANISM OF ACTION, CLINICAL EFFECTIVENESS, AND OPTIMAL THERAPEUTIC RANGE. CHEST 1995;108:231S-246S. Performed By: #### L [id number] ####[facility] [employer])[address] [place] [address] PROTHROMBIN TIME (PT) IN PPP BY COAGULATION ASSAY 23.1 Seconds High 12.3-14.8 [facility] Comment on above: Performed By: #### L [id number] ####[facility] ([facility])[address] [place] [address] SEDIMENTATION RATEon 022 SEDIMENTATION RATE, ERYTHROCYTE 11 mm/hr High <=10 [facility] Comment on above: Performed By: #### L [id number] ####[facility] ([facility])[address] [place] [address] T4, FREEon 10-18-2022 THYROXINE (T4) FREE (NG/DL) IN SER/PLAS 1.02 ng/dL Normal 0.71-1.85 [facility] Comment on above: Performed By: #### L [id number] ####[facility] ([facility])[address] [place] [address] TSHon 10-18-2022 THYROTROPIN (MIU/L) IN SER/PLAS BY DETECTION LIMIT <= 0.05 MIU/L 1.41 mIU/L Normal 0.34-5.60 [facility] Comment on above: Performed By: #### L [id number] ####[facility] ([facility])[address] [place] [address] BNPon 10-03-2022 Natriuretic peptide B (Bld) [Mass/Vol] 7092.0 pg/mL Critically high <=900.0 [facility] Comment on above: Performed By: #### H STROPN, BNP, CMP ####[facility] [id number] [place] [address]Dr. Emelina Navarro CBC AUTO DIFFon 10-03-2022 BASO # 0.0 103/ul Normal 0.0-0.1 [facility] Comment on above: Performed By: #### C BC ####[facility] [id number] [place] [id number]. Emelina Navarro Basophils/100 WBC (Bld) 0.3 % Normal 0.2-2.0 [facility] Comment on above: Performed By: #### C BC ####[facility] [id number] [place] [id number]. Emelina Navarro EO # 0.3 103/ul Normal 0.0-0.7 [facility] Comment on above: Performed By: #### C BC ####[facility] [id number] [place] [id number]. Emelina Navarro Eosinophils/100 WBC (Bld) 2.5 % Normal 0.9-7.0 The [facility] Comment on above: Performed By: #### C BC ####[facility] Nibfkjmiue[address] [place], [place] [address]Dr. Emelina Navarro Erythrocyte distribution width (RBC) [Ratio] 16.1 % Critically high 11.0-15.0 The [facility] Comment on above: Performed By: #### C BC ####[facility] Tvufjwccxm[address] [place], [place] [address]Dr. Emelina Navarro Hematocrit (Bld) [Volume fraction] 40.4 % Critically low 42.0-54.0 [facility] Comment on above: Performed By: #### C BC ####[facility] Wykpjturnr[address] [place], [place] [address]Dr. Emelina Navarro Hemoglobin (Bld) [Mass/Vol] 12.9 g/dL Critically low 14.0-18.0 The [facility] Comment on above: Performed By: #### C BC ####[facility] Gnzzpgjrag[address] [place], [place] [address]Dr. Emelina Navarro IG # 0.05 10e3/ul Critically high 0.00-0.03 The [facility] Comment on above: Performed By: #### C BC ####[facility] Dmsmaxndvy[address] [place], [place] [address]Dr. Emelina Navarro IG % 0.4 % Normal 0.0-0.5 The [facility] Comment on above: Performed By: #### C BC ####[facility] Ldazxndglz[address] [place], [place] [address]Dr. Emelina Navarro LYMPH # 1.5 103/ul Normal 1.2-3.8 The [facility] Comment on above: Performed By: #### C BC ####[facility] Itfvdjmfck3172 [place] [id number]. Emelina Navarro Lymphocytes/100 WBC (Bld) 13.1 % Critically low 20.5-60.0 The [facility] Comment on above: Performed By: #### C BC ####[facility] Mjywhgirsc9225 [place] [phone]. Emelina Ramon MANUAL DIFF REQ NO Normal The [facility] Comment on above: Performed By: #### C BC ####[facility] Euknxcuppv4410 [place] [phone]. Emelina Ramon MCH (RBC) [Entitic mass] 28.9 pg Normal 25.9-34.0 The [facility] Comment on above: Performed By: #### C BC ####[facility] Ghljjdlxtb7012 [place] [address]Dr. Emelina Navarro MCHC (RBC) [Mass/Vol] 31.9 g/dL Normal 29.9-35.2 The [facility] Comment on above: Performed By: #### C BC ####[facility] Bkcintanio5322 [place] [phone]. Emelina Navarro MCV (RBC) [Entitic vol] 90.6 fL Normal 80.0-94.0 The [facility] Comment on above: Performed By: #### C BC ####[facility] Ouagbnulkz8276 [place] [address]Dr. Awildanitza Ramon MONO # 0.8 103/ul Normal 0.3-0.8 The [facility] Comment on above: Performed By: #### C BC ####[facility] Rjbcfcvlwf6216 [place] [phone]. Emelina Ramon Monocytes/100 WBC (Bld) 7.0 % Normal 1.7-12.0 The [facility] Comment on above: Performed By: #### C BC ####[facility] X[address]ruqak[address] [place], [place] [id number]. Awildanitza Navarro NEUT # 8.8 103/ul Critically high 1.4-6.5 The [facility] Comment on above: Performed By: #### C BC ####[facility] Hwhivhqjpo2047 [place], [place] [address]Ir. Emelina Navarro Neutrophils/100 WBC (Bld) 76.7 % Critically high 43.0-75.0 [facility] Comment on above: Performed By: #### C BC ####[facility] Vvrqlqjyxy9778 [place], [place] [address]Eq. Emelina Navarro Platelet mean volume (Bld) [Entitic vol] 9.9 fL Normal 9.5-13.5 [facility] Comment on above: Performed By: #### C BC ####[facility] Lzbktlyyus3564 [place], [place] [address]Ew. Emelina Navarro PLT 201 103/ul Normal 150-450 The [facility] Comment on above: Performed By: #### C BC ####[facility] Cfflcthlxn6203 [place], [place] [address]Ew. Emelina Navarro RBC 4.46 106/ul Critically low 4.70-6.10 The [facility] Comment on above: Performed By: #### C BC ####[facility] Tpajyvydam8271 [place], [place] [address]Uo. Emelina Navarro WBC 11.4 103/ul Critically high 4.0-11.0 The [facility] Comment on above: Performed By: #### C BC ####[facility] Ibxzrntegg7166 [place], [place] [address]Jj. Emelina aNvarro Covid-19 PCR (CVDTB)on 09-19 SARS-CoV-2 (COVID-19) RNA RADHA+probe Ql (Unsp spec) Not detected Normal NOT DETECTED The [facility] Comment on above: Result Comment: When diagnostic testing is negative, the possibility of a false negative should be considered inthe context of a patient's recent exposures and the presence of clinical signs and symptomsconsistent with SARS-CoV-2.This test is not yet approved or cleared by the [place] FDA. When there are no FDA-approved or cleared tests available, and other criteria are met, FDA can make tests available under an emergency access mechanism called an Emergency Use Authorization (EUA). The EUA for this test is supported by the Cruise Staff Member of Health and Human Service's declaration that circumstances exist to justify the emergency use of in vitro diagnostics for the detection and/or diagnosis of the virus that causes COVID-19. This EUA will remain in effect for the duration of the COVID-19 declaration justifying emergency of IVDs, unless it is terminated or revoked by the FDA (after which the test may no longer be used). Performed By: #### C VDTBH ####[facility] Irbycoqkde9748 [place] [address]Dr. Emelina Navarro PROF 14(COMP METB)on 022 Albumin [Mass/Vol] 3.1 g/dL Critically low 3.4-5.0 Th e [facility] Comment on above: Performed By: #### H STROPN, BNP, CMP ####[facility] Ihojezlkwn6784 [place] [address]Dr. Emelina Navarro Albumin/Globulin [Mass ratio] 0.8 {ratio} Normal [facility] Comment on above: Performed By: #### H STROPN, BNP, CMP ####[facility] Qagiseegbj2677 [place] [address]Dr. Emelina Navarro ALP [Catalytic activity/Vol] 118 U/L Critically high 46-116 [facility] Comment on above: Performed By: #### H STROPN, BNP, CMP ####[facility] Dqyhpcmxof7446 [place] [address]Dr. Emelina Navarro ALT [Catalytic activity/Vol] 22 U/L Normal 16-63 [facility] Comment on above: Performed By: #### H STROPN, BNP, CMP ####[facility] Yrifzvvrjw9533 [place] [address]Dr. Emelina Navarro Anion gap [Moles/Vol] 8.6 mmol/L Normal [facility] Comment on above: Performed By: #### H STROPN, BNP, CMP ####[facility] Rvjhmavzul0083 [place] [address]Dr. Emelina Navarro AST [Catalytic activity/Vol] 23 U/L Normal 15-37 [facility] Comment on above: Performed By: #### H STROPN, BNP, CMP ####[facility] Vnyihnvmpq6180 [place] [address]Dr. Emelina Navarro Bilirubin [Mass/Vol] 1.0 mg/dL Normal 0.2-1.0 [facility] Comment on above: Performed By: #### H STROPN, BNP, CMP ####[facility] Pkjriuzjba4261 [place] [address]Dr. Emelina Navarro Calcium [Mass/Vol] 8.4 mg/dL Critically low 8.5-10.1 Th e [facility] Comment on above: Performed By: #### H STROPN, BNP, CMP ####[facility] Bcujsupluz7442 [place] [address]Dr. Emelina Navarro Chloride [Moles/Vol] 101 mmol/L Normal 98-107 [facility] Comment on above: Performed By: #### H STROPN, BNP, CMP ####[facility] Rfbvwuydcf5953 [place] [address]Dr. Emelina Navarro CO2 [Moles/Vol] 33.3 mmol/L Critically high 21.0-32.0 [facility] Comment on above: Performed By: #### H STROPN, BNP, CMP ####[facility] Oaynvgegbh[address] [place], [place] [address]Dr. Emelina Ramon Creatinine [Mass/Vol] 1.52 mg/dL Critically high 0.70-1.30 [facility] Comment on above: Performed By: #### H STROPN, BNP, CMP ####[facility] Fauanjvyvt3830 [place] [address]Dr. Emelina Ramon EGFR-AF GABONESE 56 mL/min/1.73m2 Critically low >=60 The [facility] Comment on above: Performed By: #### H STROPN, BNP, CMP ####[facility] Duyrwoplgc2076 [place] [address]Dr. Awildanitza Ramon EGFR-NON AF GABONESE 46 mL/min/1.73m2 Critically low >=60 [facility] Comment on above: Performed By: #### H STROPN, BNP, CMP ####[facility] Hvtkesbkyi7271 [place] [address]Dr. Emelina Navarro Globulin (S) [Mass/Vol] 4.1 g/dL Normal [facility] Comment on above: Performed By: #### H STROPN, BNP, CMP ####[facility] Tayebyqftx4814 [place] [address]Dr. Emelina Navarro Glucose [Mass/Vol] 141 mg/dL Critically high 74-106 [facility] Comment on above: Performed By: #### H STROPN, BNP, CMP ####[facility] Dfnibvukfa9936 [place] [address]Dr. Emelina Navarro Potassium [Moles/Vol] 3.9 mmol/L Normal 3.5-5.1 [facility] Comment on above: Performed By: #### H STROPN, BNP, CMP ####[facility] Dyelppdkwi8429 [place] [address]Dr. Emelina Navarro Protein [Mass/Vol] 7.2 g/dL Normal 6.4-8.2 [facility] Comment on above: Performed By: #### H STROPN, BNP, CMP ####[facility] Jnngmbltvk8267 [place] [address]Dr. Emelina Navarro Sodium [Moles/Vol] 139 mmol/L Normal 136-145 [facility] Comment on above: Performed By: #### H STROPN, BNP, CMP ####[facility] Qsrkrbglnj2761 [place] [address]Dr. Emelina Navarro Urea nitrogen [Mass/Vol] 26.0 mg/dL Critically high 7.0-18.0 [facility] Comment on above: Performed By: #### H STROPN, BNP, CMP ####[facility] Qufiabwcwi6543 [place] [address]Dr. Emelina Navarro Urea nitrogen/Creatinine [Mass ratio] 17.1 mg/mg Normal [facility] Comment on above: Performed By: #### H STROPN, BNP, CMP ####[facility] Omaevcsaxb0497 [place] [address]Dr. Emelina Navarro PROTIMEon 10-03-2022 INR Coag (PPP) [Relative time] 1.76 {INR} Normal The [facility] Comment on above: Performed By: #### P T, PTT ####[facility] Ezbrteesip4616 [place] [address]Dr. Emelina Navarro INR GUIDELINES SEE BELOW Normal The [facility] Comment on above: Result Comment: WENDY RED INR: 2.0 - 3.0 CONDITIONS NOT LISTED BELOW 2.5 - 3.5 FOR PROSTHETIC HEART VALVE REPLACEMENT 2.5 - 3.5 RECURRENT THROMBOSIS Performed By: #### P T, PTT ####[facility] Yqyfulmmkk0018 [place] [address]Dr. Emelina Navarro PT Coag (PPP) [Time] 18.3 s Critically high 9.0-11.6 The [facility] Comment on above: Performed By: #### P T, PTT ####[facility] Ifdltproqd3530 [place] [address]Dr. Emelina Navarro PTTon 10-03-2022 aPTT Coag (Bld) [Time] 33.9 s Normal 22.3-36.2 The [facility] Comment on above: Performed By: #### P T, PTT ####[facility] Rgozygyhus6882 [place] [address]Dr. Emelina Navarro TROPONIN, HIGH SENSITIVITYon 10-03-2022 HSTROP 40.2 pg/mL Normal 4.0-76.1 The [facility] Comment on above: Result Comment: CUT- OFF POINTS HAVE BEEN ESTABLISHED BASED ON THE FOURTH UNIVERSAL DEFINITIONS OF MYOCARDIALINFARCTION. THE UPPER REFERENCE LIMIT (URL) OF TROPONIN, DEFINED THE 99TH PERCENTILE OFcTnI DISTRIBUTION IN A REFERENCE POPULATION, HAS BEEN CONFIRMED THE DECISION THRESHOLDFOR ND DIAGNOSIS. Performed By: #### H STROPN, BNP, CMP ####[facility] Vgfvlrmapa9457 [place] [address]Dr. Emelina Navarro XR CHEST 1 Von 10-03-2022 XR CHEST 1 V Normal The [facility] PTH INTACTon 09-19-2022 PTH, Intact 52 pg/mL Normal 15-65 The [facility] Comment on above: Performed By: #### P THINT ####[facility] Dlpurgdtbf[address] [place], [place] [address]Dr. Emelina Navarro FERRITINon 09-18-2022 Ferritin [Mass/Vol] 92.0 ng/mL Normal 26.0-388.0 [facility] Comment on above: Performed By: #### V ITAD, FERR, FETIBC ####[facility] Fakkmripro8987 [place] [address]Dr. Emelina Navarro HEMOGRAM AND PLATELon 2021 Hematocrit (Bld) [Volume fraction] 44.3 % Normal 42.0-54.0 [facility] Comment on above: Performed By: #### H H ####[facility] Ileysqsjfd9956 [place] [address]Dr. Emelina Navarro Hemoglobin (Bld) [Mass/Vol] 14.0 g/dL Normal 14.0-18.0 [facility] Comment on above: Performed By: #### H H ####[facility] Dkvlyxblgr6017 [place] [address]Dr. Emelina Navarro MCH (RBC) [Entitic mass] 29.0 pg Normal 25.9-34.0 [facility] Comment on above: Performed By: #### H H ####[facility] Hmrolobfcx1241 [place] [address]Dr. Emelina Navarro MCHC (RBC) [Mass/Vol] 31.6 g/dL Normal 29.9-35.2 [facility] Comment on above: Performed By: #### H H ####[facility] Uodlhnogkt2933 [place] [address]Dr. Emelina Navarro MCV (RBC) [Entitic vol] 91.7 fL Normal 80.0-94.0 The [facility] Comment on above: Performed By: #### H H ####[facility] Vnrzdihcuk2414 [place] [address]Dr. Emelina Navarro PLT 187 103/ul Normal 150-450 The [facility] Comment on above: Performed By: #### H H ####[facility] Dpdjuzjlii2380 [place] [address]Dr. Emelina Navarro RBC 4.83 106/ul Normal 4.70-6.10 The [facility] Comment on above: Performed By: #### H H ####[facility] Uebylidslb4988 [place] [phone]. Emelina Navarro WBC 13.9 103/ul Critically high 4.0-11.0 [facility] Comment on above: Performed By: #### H H ####[facility] Ucnubvflbd8340 [place] [phone]. Emelina Navarro IRON AND TIBCon 09-18-2022 % SATURATION 28.9 % Normal [facility] Comment on above: Performed By: #### V ITAD, FERR, FETIBC ####[facility] Zvjcaihbpv2472 [place] [phone]. Emelina Navarro Iron [Mass/Vol] 76.0 ug/dL Normal 65.0-175.0 [facility] Comment on above: Performed By: #### V ITAD, FERR, FETIBC ####[facility] Kbxvmdorow8259 [place] [address]Dr. Emelina Navarro TIBC DIRECT 263.0 ug/dL Normal 250.0-450. 0 The [facility] Comment on above: Performed By: #### V ITAD, FERR, FETIBC ####[facility] Aguvkcpdgy[address] [place], [place] [address]Dr. Emelina Navarro MAGNESIUMon 09-18-2022 Magnesium [Mass/Vol] 2.3 mg/dL Normal 1.8-2.4 [facility] Comment on above: Performed By: #### Noreen DUNNE, URIC, MG ####[facility] Cpffptplrv5075 [place] [address]Dr. Emelina Navarro RENAL FUNCTION PANELon 09-18 Albumin [Mass/Vol] 3.5 g/dL Normal 3.4-5.0 [facility] Comment on above: Performed By: #### Noreen ENAMEYA, URIC, MG ####[facility] Wqmoxryese2805 [place] [address]Dr. Emelina Navarro Calcium [Mass/Vol] 8.4 mg/dL Critically low 8.5-10.1 Th [facility] Comment on above: Performed By: #### Noreen ENAMEYA, URIC, MG ####[facility] Abvdkiwxps4788 [place] [address]Dr. Emelina Navarro Chloride [Moles/Vol] 100 mmol/L Normal 98-107 [facility] Comment on above: Performed By: #### R ENAL, URIC, MG ####[facility] Vmouofgebs0344 [place] [address]Dr. Emelina Navarro CO2 [Moles/Vol] 31.0 mmol/L Normal 21.0-32.0 The [facility] Comment on above: Performed By: #### R ENAL, URIC, MG ####[facility] Ktdknvevyi3937 [place] [address]Dr. Emelina Navarro Creatinine [Mass/Vol] 1.63 mg/dL Critically high 0.70-1.30 [facility] Comment on above: Performed By: #### R ENAL, URIC, MG ####[facility] Vyystmbowi7166 [place] [address]Dr. Emelina Ramon EGFR-AF GABONESE 51 mL/min/1.73m2 Critically low >=60 The [facility] Comment on above: Performed By: #### R ENAL, URIC, MG ####[facility] Cbkdvfrxkg[address] [place], [place] [address]Dr. Emelina Navarro EGFR-NON AF GABONESE 42 mL/min/1.73m2 Critically low >=60 [facility] Comment on above: Performed By: #### R ENAL, URIC, MG ####[facility] Ocexoxhbcn8402 [place] [address]Dr. Emelina Navarro Glucose [Mass/Vol] 135 mg/dL Critically high 74-106 [facility] Comment on above: Performed By: #### R ENAL, URIC, MG ####[facility] J[address]woqkhepb[address] [place], [place] [address]Dr. Awildanitza Navarro Phosphate [Mass/Vol] 3.4 mg/dL Normal 2.6-4.7 [facility] Comment on above: Performed By: #### R ENAL, URIC, MG ####[facility] Ycubbkijuk0403 [place] [address]Dr. Emelina Navarro Potassium [Moles/Vol] 4.5 mmol/L Normal 3.5-5.1 The [facility] Comment on above: Performed By: #### R ENAL URIC, MG ####[facility] Wcxikcljxr3519 [place] [address]Dr. Emelina Navarro Sodium [Moles/Vol] 137 mmol/L Normal 136-145 [facility] Comment on above: Performed By: #### R ENAMEYA URIC, MG ####[facility] Nngdznakgw3015 [place] [address]Dr. Emelina Navarro Urea nitrogen [Mass/Vol] 26.0 mg/dL Critically high 7.0-18.0 [facility] Comment on above: Performed By: #### R ENAMEYA URIC, MG ####[facility] Iylahnzecl8154 [place] [address]Dr. Emelina Navarro UA RANDOM W/MICROSCOPICon BACTERIA NONE SEEN Normal NONE SEEN The [facility] Comment on above: Performed By: #### U AMIC ####[facility] Bliplikwhj0[address] [place], [place] [address]Dr. Emelina Navarro Bilirubin Ql (U) Negative Normal NEGATIVE The [facility] Comment on above: Performed By: #### U AMIC ####[facility] Cnwbaklhfd0223 [place] [address]Dr. Emelina Navarro CAST NONE SEEN Normal NONE SEEN The [facility] Comment on above: Performed By: #### U AMIC ####[facility] Sthqrvgdkk[address] [place], [place] [address]Dr. Emelina Navarro Clarity (U) CLEAR Normal CLEAR The [facility] Comment on above: Performed By: #### U AMIC ####[facility] Rgtxlxergu38[address] [place], [place] [address]Dr. Emelina Navarro Color (U) LT. YELLOW Normal YELLOW The [facility] Comment on above: Performed By: #### U AMIC ####[facility] Ewvhisjbdl7428 [place] [address]Dr. Emelina Navarro Crystals LM Nom (Urine sed) NONE SEEN Normal NONE SEEN The [facility] Comment on above: Performed By: #### U AMIC ####[facility] Ncacxxookd2780 [place] [address]Dr. Emelina Navarro Epithelial cells LM Ql (Urine sed) NONE SEEN Normal NONE SEEN /RARE The [facility] Comment on above: Performed By: #### U AMIC ####[facility] Eyqyfanvqs3558 [place] [address]Dr. Emelina Navarro Glucose Ql (U) >1000 Abnormal NEGATIVE The [facility] Comment on above: Performed By: #### U AMIC ####[facility] Pednvtklzu1328 [place] [address]Dr. Emelina Navarro Hemoglobin Ql (U) Negative Normal NEGATIVE The [facility] Comment on above: Performed By: #### U AMIC ####[facility] Gflwcjquhf3580 [place] [address]Dr. Emelina Navarro Ketones Ql (U) Negative Normal NEGATIVE The [facility] Comment on above: Performed By: #### U AMIC ####[facility] Tblmzulpri[address] [place], [place] [address]Dr. Emelina Navarro LEUKOCYTES Negative Normal NEGATIVE The [facility] Comment on above: Performed By: #### U AMIC ####[facility] Hhwpapfwxf70[address] [place], [place] [address]Dr. Emelina Ramon MUCOUS NONE SEEN Normal NONE SEEN The [facility] Comment on above: Performed By: #### U AMIC ####[facility] Sykgpqipmi1297 [place] [address]Dr. Emelina Navarro Nitrite Ql (U) Negative Normal NEGATIVE The [facility] Comment on above: Performed By: #### U AMIC ####[facility] Yltnsseclt3674 [place] [address]Dr. Emelina Navarro pH (U) 6.0 [pH] Normal 5-9 The [facility] Comment on above: Performed By: #### U AMIC ####[facility] Gepeeidaft2255 [place] [address]Dr. Emelina Navarro RBC 0-2 Normal 0-2 The [facility] Comment on above: Performed By: #### U AMIC ####[facility] Hntlyyyapz9167 [place] [address]Dr. Emelina Naavrro SPEC GRAVITY 1.010 Normal 1.005-<=1. 025 The [facility] Comment on above: Performed By: #### U AMIC ####[facility] Lpewnnqgzi6748 [place] [address]Dr. Emelina Navarro UA PROTEIN Negative Normal NEGATIVE/ TRACE The [facility] Comment on above: Performed By: #### U AMIC ####[facility] Lvyudaukic63[address] [place], [place] [address]Dr. Emelina Navarro Urobilinogen Qn (U) 0.2 {Ashley'U}/dL Normal 0.2 - 1. 0 The [facility] Comment on above: Performed By: #### U AMIC ####[facility] [address]zoejlluzx[address] [place], [place] [address]Dr. Emelina Navarro WBC NONE SEEN Normal NONE SEEN The [facility] Comment on above: Performed By: #### U AMIC ####[facility] [address]mub[address] [place], [place] [address]Dr. Emelina Navarro URIC ACID SERUMon 09-18-2022 Urate [Mass/Vol] 9.2 mg/dL Critically high 3.5-7.2 The [facility] Comment on above: Performed By: #### R ENAL, URIC, MG ####[facility] Imuspucopz040[address] [place], [place] [address]Dr. Emelina Navarro URINE T PROTEIN CREAT RATIOo n 09-18-2022 Protein (U) [Mass/Vol] 17.5 mg/dL Critically high <=12.0 The [facility] Comment on above: Performed By: #### U RTPCR ####[facility] Stvotbpqju0599[address] [place], [place] [address]Dr. Emelina Navarro UR PROT CREAT RAT 0.61 Normal [facility] Comment on above: Performed By: #### U RTPCR ####[facility] Aezgwmgpzq12[address] [place], [place] [address]Dr. Emelina Navarro URINE CREAT 28.53 mg/dL Normal 20.00-300. 00 [facility] Comment on above: Performed By: #### U RTPCR ####[facility] Pgkxmtxeav14[address] [place] [address]Dr. Emelina Navarro VITAMIN D 25 OHon 09-18-2022 VIT D 25-OH 49.6 ng/mL Normal [facility] Comment on above: Performed By: #### V ITANA CRUZ, FETIBC ####[facility] Vvevjokhdd13[address] [place] [address]Dr. Emelina Navarro VIT D RANGES SEE BELOW Normal [facility] Comment on above: Result Comment: <20 ng/mL Vit D deficient 20 - <30 ng/mL Vit D insufficient 30 - 100 ng/mL Vit D sufficient >100 ng/mL Potential Toxicity Performed By: #### V ANA WEISS, FETIBC ####[facility] Pdnsjmudhj4464 [place] [address]Dr. Emelina Navarro A1C HEMOGLOBINon 07-31-2022 HbA1c (Bld) [Mass fraction] 6.7 % [facility] Other Glucose - FINGER STICKon Glucose [Mass/Vol] 338 mg/dL [facility] Other HbA1c (Bld) [Mass fraction]o n 07-31-2022 A1C HEMOGLOBIN [employer] [facility] [employer] Other BNPon 07-19-2022 Natriuretic peptide B (Bld) [Mass/Vol] 7571.0 pg/mL Critically high <=900.0 [facility] Comment on above: Performed By: #### B MP, BNP ####[facility] Rwuvxkkubz0239 [place] [address]Dr. Emelina Navarro PROF CHEM 8 (BAS METB)on Anion gap [Moles/Vol] 11.6 mmol/L Normal [facility] Comment on above: Performed By: #### B MP, BNP ####[facility] Nghatysjhs1923 [place] [address]DrWesley Navarro Calcium [Mass/Vol] 9.2 mg/dL Normal 8.5-10.1 [facility] Comment on above: Performed By: #### B MP, BNP ####[facility] Cpyiqfulry[address] [place], [place] [address]Dr. Emelina Navarro Chloride [Moles/Vol] 102 mmol/L Normal 98-107 [facility] Comment on above: Performed By: #### B MP, BNP ####[facility] Ktwxshemzj036[address] [place], [place] [address]Dr. Emelina Navarro CO2 [Moles/Vol] 30.6 mmol/L Normal 21.0-32.0 The [facility] Comment on above: Performed By: #### B MP, BNP ####[facility] Madztmurdj6[address] [place], [place] [address]Dr. Emelina Navarro Creatinine [Mass/Vol] 1.72 mg/dL Critically high 0.70-1.30 The [facility] Comment on above: Performed By: #### B MP, BNP ####[facility] Gqcyzbmncr450[address] [place], [place] [address]Dr. Awildanitza Ramon EGFR-AF GABONESE 48 mL/min/1.73m2 Critically low >=60 The [facility] Comment on above: Performed By: #### B MP, BNP ####[facility] Lmqsptszvs196[address] [place], [place] [address]Dr. Emelina Navarro EGFR-NON AF GABONESE 40 mL/min/1.73m2 Critically low >=60 The [facility] Comment on above: Performed By: #### B MP, BNP ####[facility] Fiomqnjqtg5774[address] [place], [place] [address]Dr. Emelina Navarro Glucose [Mass/Vol] 76 mg/dL Normal 74-106 [facility] Comment on above: Performed By: #### B MP, BNP ####[facility] Wiqzzrqqjt488[address] [place], [place] [address]Dr. mEelina Navarro Potassium [Moles/Vol] 4.2 mmol/L Normal 3.5-5.1 The [facility] Comment on above: Performed By: #### B MP, BNP ####[facility] Ajetrnfbdg0134[address] [place], [place] [address]Dr. Emelina Navarro Sodium [Moles/Vol] 140 mmol/L Normal 136-145 [facility] Comment on above: Performed By: #### B MP, BNP ####[facility] Qzctbtczwa7816[address] [place], [place] [address]Dr. Emelina Navarro Urea nitrogen [Mass/Vol] 19.0 mg/dL Critically high 7.0-18.0 [facility] Comment on above: Performed By: #### B MP, BNP ####[facility] Ntwbxbntwd61[address] [place], [place] [address]Dr. Emelina Navarro Urea nitrogen/Creatinine [Mass ratio] 11.0 mg/mg Normal [facility] Comment on above: Performed By: #### B MP, BNP ####[facility] Ksaouadjmr7[address] [place], [place] [address]Dr. Emelina Navarro CBC AUTO DIFFon 06-16-2022 BASO # 0.0 103/ul Normal 0.0-0.1 [facility] Comment on above: Performed By: #### C BC ####[facility] Sikzetcnuv2742[address] [place], [place] [address]Dr. Emelina Ramon Basophils/100 WBC (Bld) 0.1 % Critically low 0.2-2.0 [facility] Comment on above: Performed By: #### C BC ####[facility] Hzlfcoskbl2186[address] [place], [place] [address]Dr. Emelnia Navarro EO # 0.1 103/ul Normal 0.0-0.7 [facility] Comment on above: Performed By: #### C BC ####[facility] Detzrabpxp6474[address] [place], [place] [address]Dr. Emelina Ramon Eosinophils/100 WBC (Bld) 0.4 % Critically low 0.9-7.0 [facility] Comment on above: Performed By: #### C BC ####[facility] Zthdprhhcy569[address] [place], [place] [address]Dr. Emelina Navarro Erythrocyte distribution width (RBC) [Ratio] 17.1 % Critically high 11.0-15.0 The [facility] Comment on above: Performed By: #### C BC ####[facility] Qzvkkwnefb0878 [place] [address]Dr. Emelina Navarro Hematocrit (Bld) [Volume fraction] 44.7 % Normal 42.0-54.0 [facility] Comment on above: Performed By: #### C BC ####[facility] Chewwvuspn4236 [place] [address]Dr. Emelina Navarro Hemoglobin (Bld) [Mass/Vol] 14.5 g/dL Normal 14.0-18.0 The [facility] Comment on above: Performed By: #### C BC ####[facility] Qwexatthpl9759 [place] [address]Dr. Emelina Ramon IG # 0.07 10e3/ul Critically high 0.00-0.03 [facility] Comment on above: Performed By: #### C BC ####[facility] Pykkpnyvqg6178 [place] [address]Dr. Awildanitza Navarro IG % 0.4 % Normal 0.0-0.5 [facility] Comment on above: Performed By: #### C BC ####[facility] Fjhkvazyzi7526 [place] [address]Dr. Emelina Ramon LYMPH # 2.0 103/ul Normal 1.2-3.8 [facility] Comment on above: Performed By: #### C BC ####[facility] Rkvetirknm2361 [place] [address]Dr. Emelina Ramon Lymphocytes/100 WBC (Bld) 12.1 % Critically low 20.5-60.0 [facility] Comment on above: Performed By: #### C BC ####[facility] Pcvolvrjqi8987 [place] [address]Dr. Awildanitza Navarro MANUAL DIFF REQ NO Normal [facility] Comment on above: Performed By: #### C BC ####[facility] Jfboaxfyqz4530 [place] [address]Dr. Emelina Ramon MCH (RBC) [Entitic mass] 28.2 pg Normal 25.9-34.0 [facility] Comment on above: Performed By: #### C BC ####[facility] P[address] [place], [place] [address]Dr. Emelina Navarro MCHC (RBC) [Mass/Vol] 32.4 g/dL Normal 29.9-35.2 [facility] Comment on above: Performed By: #### C BC ####[facility] Eyxqjydduk6[address] [place] [id number]. Emelina Navarro MCV (RBC) [Entitic vol] 86.8 fL Normal 80.0-94.0 The [facility] Comment on above: Performed By: #### C BC ####[facility] Jcecjfaulx3301 [place] [phone]. Emelina Navarro MONO # 0.7 103/ul Normal 0.3-0.8 The [facility] Comment on above: Performed By: #### C BC ####[facility] Xorgnggcfa4449 [place] [phone]. Emelina Navarro Monocytes/100 WBC (Bld) 4.3 % Normal 1.7-12.0 The [facility] Comment on above: Performed By: #### C BC ####[facility] Pyffygqeci7002 [place] [phone]. Emelina Navarro NEUT # 13.4 103/ul Critically high 1.4-6.5 The [facility] Comment on above: Performed By: #### C BC ####[facility] Herliwafve6673 [place] [phone]. Emelina Navarro Neutrophils/100 WBC (Bld) 82.7 % Critically high 43.0-75.0 The [facility] Comment on above: Performed By: #### C BC ####[facility] Hiafaggikx5060 [place] [phone]. Emelina Navarro Platelet mean volume (Bld) [Entitic vol] 9.5 fL Normal 9.5-13.5 The [facility] Comment on above: Performed By: #### C BC ####[facility] Ruvvftzryz4489 [place] [phone]. Emelina Ramon PLT 218 103/ul Normal 150-450 [facility] Comment on above: Performed By: #### C BC ####[facility] Xgbowuylfh8505 [place] [address]Dr. Awildanitza Ramon RBC 5.15 106/ul Normal 4.70-6.10 [facility] Comment on above: Performed By: #### C BC ####[facility] Rfvtdzgvja6677 [place] [address]Dr. Emelina Navarro WBC 16.2 103/ul Critically high 4.0-11.0 [facility] Comment on above: Performed By: #### C BC ####[facility] Nwrueqtktb4658 [place] [address]Dr. Emelina Navarro PROF 14(COMP METB)on 022 Albumin [Mass/Vol] 3.3 g/dL Critically low 3.4-5.0 [facility] Comment on above: Performed By: #### C MP ####[facility] Btwoykodkh1015 [place] [address]Dr. Emelina Navarro Albumin/Globulin [Mass ratio] 0.8 {ratio} Normal [facility] Comment on above: Performed By: #### C MP ####[facility] Tgeyarcsnd5586 [place] [address]Dr. Emelina Navarro ALP [Catalytic activity/Vol] 81 U/L Normal 46-116 [facility] Comment on above: Performed By: #### C MP ####[facility] Gbjhoedwiu3732[address] [place], [place] [address]Dr. Emelina Navarro ALT [Catalytic activity/Vol] 34 U/L Normal 16-63 [facility] Comment on above: Performed By: #### C MP ####[facility] Vjapzqlojp3810 [place] [address]Dr. Emelina Navarro Anion gap [Moles/Vol] 14.1 mmol/L Normal [facility] Comment on above: Performed By: #### C MP ####[facility] Rvrfzdyxss0467[address] [place], [place] [address]Dr. Emelina Navarro AST [Catalytic activity/Vol] 22 U/L Normal 15-37 [facility] Comment on above: Performed By: #### C MP ####[facility] Dbhjjswygj947[address] [place], [place] [address]Dr. Emelina Navarro Bilirubin [Mass/Vol] 1.0 mg/dL Normal 0.2-1.0 The [facility] Comment on above: Performed By: #### C MP ####[facility] Tpqoqgctji9543[address] [place], [place] [address]Dr. Emelina Navarro Calcium [Mass/Vol] 8.6 mg/dL Normal 8.5-10.1 [facility] Comment on above: Performed By: #### C MP ####[facility] Otmhnjglbj5404[address] [place], [place] [address]Dr. Emelina Navarro Chloride [Moles/Vol] 98 mmol/L Normal 98-107 The [facility] Comment on above: Performed By: #### C MP ####[facility] Xptqtlqrly1525[address] [place], [place] [address]Dr. Emelina Navarro CO2 [Moles/Vol] 28.0 mmol/L Normal 21.0-32.0 The [facility] Comment on above: Performed By: #### C MP ####[facility] Bviwlizkua3[address] [place], [place] [address]Dr. Emelina Navarro Creatinine [Mass/Vol] 1.83 mg/dL Critically high 0.70-1.30 The [facility] Comment on above: Performed By: #### C MP ####[facility] Ikurprsjsv4244[address] [place], [place] [address]Dr. Emelina Navarro EGFR-AF GABONESE 45 mL/min/1.73m2 Critically low >=60 The [facility] Comment on above: Performed By: #### C MP ####[facility] Jieaxcgcsr18[address] [place], [place] [address]Dr. Emelina Ramon EGFR-NON AF GABONESE 37 mL/min/1.73m2 Critically low >=60 The [facility] Comment on above: Performed By: #### C MP ####[facility] Pcdhjotvlv549[address] [place], [place] [address]Dr. Emelina Navarro Globulin (S) [Mass/Vol] 4.3 g/dL Normal [facility] Comment on above: Performed By: #### C MP ####[facility] Hqabnjxgvt0094 [place] [address]Dr. Emelina Navarro Glucose [Mass/Vol] 173 mg/dL Critically high 74-106 [facility] Comment on above: Performed By: #### C MP ####[facility] Ujrrkbtzpw5600 [place] [address]Dr. Emelina Navarro Potassium [Moles/Vol] 4.1 mmol/L Normal 3.5-5.1 The [facility] Comment on above: Performed By: #### C MP ####[facility] Rhjuvwfgqh0237 [place] [address]Dr. Emelina Navarro Protein [Mass/Vol] 7.6 g/dL Normal 6.4-8.2 [facility] Comment on above: Performed By: #### C MP ####[facility] Bvjtokscbn825[address] [place], [place] [address]Dr. Emelina Navarro Sodium [Moles/Vol] 136 mmol/L Normal 136-145 [facility] Comment on above: Performed By: #### C MP ####[facility] Cimjglhnme893[address] [place], [place] [address]Dr. Emelina Ramon Urea nitrogen [Mass/Vol] 46.0 mg/dL Critically high 7.0-18.0 [facility] Comment on above: Performed By: #### C MP ####[facility] Lbbhjfkizc9955[address] [place], [place] [address]Dr. Emelina Ramon Urea nitrogen/Creatinine [Mass ratio] 25.1 mg/mg Normal [facility] Comment on above: Performed By: #### C MP ####[facility] Ijjkzupriz7047[address] [place], [place] [address]Dr. Awildanitza Navarro PROTIMEon 06-16-2022 INR Coag (PPP) [Relative time] 2.12 {INR} Normal The [facility] Comment on above: Performed By: #### P T ####[facility] Yudbwywstp8834[address] [place], [place] [address]Dr. Emelina Navarro INR GUIDELINES SEE BELOW Normal The [facility] Comment on above: Result Comment: WENDY RED INR: 2.0 - 3.0 CONDITIONS NOT LISTED BELOW 2.5 - 3.5 FOR PROSTHETIC HEART VALVE REPLACEMENT 2.5 - 3.5 RECURRENT THROMBOSIS Performed By: #### P T ####[facility] Kanpnjkhht0187[address] [place], [place] [address]Dr. Emelina Navarro PT Coag (PPP) [Time] 21.8 s Critically high 9.0-11.6 The [facility] Comment on above: Performed By: #### P T ####[facility] Fzqoymjurz3134[address] [place], [place] [address]Dr. Emelina Navarro BNPon 06-15-2022 Natriuretic peptide B (Bld) [Mass/Vol] 4304.0 pg/mL Critically high <=900.0 The [facility] Comment on above: Performed By: #### B WELL TESTER ####[facility] Krsoxrclcb550[address] [place], [place] [address]Dr. Emelina Navarro CBC AUTO DIFFon 06-15-2022 BASO # 0.0 103/ul Normal 0.0-0.1 [facility] Comment on above: Performed By: #### C BC ####[facility] Dexmsmrrmo488[address] [place], [place] [address]Dr. Emelina Navarro Basophils/100 WBC (Bld) 0.1 % Critically low 0.2-2.0 The [facility] Comment on above: Performed By: #### C BC ####[facility] Xupehbdsro3136[address] [place], [place] [address]Dr. Emelina Navarro EO # 0.0 103/ul Normal 0.0-0.7 The [facility] Comment on above: Performed By: #### C BC ####[facility] Ihnrulunqg5666[address] [place], [place] [address]Dr. Emelina Navarro Eosinophils/100 WBC (Bld) 0.1 % Critically low 0.9-7.0 The [facility] Comment on above: Performed By: #### C BC ####[facility] Sdvyjdopym4514[address] [place], [place] [address]Dr. Emelina Navarro Erythrocyte distribution width (RBC) [Ratio] 17.1 % Critically high 11.0-15.0 The [facility] Comment on above: Performed By: #### C BC ####[facility] Fehvzfmagi8327 [place] [address]Dr. Emelina Navarro Hematocrit (Bld) [Volume fraction] 40.9 % Critically low 42.0-54.0 [facility] Comment on above: Performed By: #### C BC ####[facility] Nikqmfgbag4399 [place] [address]Dr. Emelina Navarro Hemoglobin (Bld) [Mass/Vol] 13.4 g/dL Critically low 14.0-18.0 [facility] Comment on above: Performed By: #### C BC ####[facility] Ypoemtwzzx1148 [place] [address]Dr. Emelina Navarro IG # 0.17 10e3/ul Critically high 0.00-0.03 [facility] Comment on above: Performed By: #### C BC ####[facility] Htmpplctyc7604 [place] [address]Dr. Emelina Navarro IG % 0.8 % Critically high 0.0-0.5 [facility] Comment on above: Performed By: #### C BC ####[facility] Gprxwyuxbt7664[address] [place], [place] [address]Dr. Emelina Navarro LYMPH # 1.4 103/ul Normal 1.2-3.8 [facility] Comment on above: Performed By: #### C BC ####[facility] Yodyoxtccs4674 [place] [address]Dr. Emelina Navarro Lymphocytes/100 WBC (Bld) 6.8 % Critically low 20.5-60.0 [facility] Comment on above: Performed By: #### C BC ####[facility] Sjjskmkyum4997 [place] [address]Dr. Emelina Navarro MANUAL DIFF REQ NO Normal [facility] Comment on above: Performed By: #### C BC ####[facility] Ktipohthme[address] [place], [place] [address]Dr. Emelina Navarro MCH (RBC) [Entitic mass] 28.6 pg Normal 25.9-34.0 [facility] Comment on above: Performed By: #### C BC ####[facility] Mfxfhajstc5723 [place] [phone]. Emelina Navarro MCHC (RBC) [Mass/Vol] 32.8 g/dL Normal 29.9-35.2 [facility] Comment on above: Performed By: #### C BC ####[facility] Acxspcnzdp8151 [place] [phone]. Emelina Navarro MCV (RBC) [Entitic vol] 87.2 fL Normal 80.0-94.0 The [facility] Comment on above: Performed By: #### C BC ####[facility] Jsyfqoplew3975 [place] [phone]. Emelina Navarro MONO # 0.8 103/ul Normal 0.3-0.8 [facility] Comment on above: Performed By: #### C BC ####[facility] Srrxzgpxxt5341 [place] [phone]. Emelina Ramon Monocytes/100 WBC (Bld) 3.8 % Normal 1.7-12.0 [facility] Comment on above: Performed By: #### C BC ####[facility] Dxobrrrmpa3450 [place] [phone]. Emelina Navarro NEUT # 17.9 103/ul Critically high 1.4-6.5 [facility] Comment on above: Performed By: #### C BC ####[facility] Baslxmwebh5458 [place] [phone]. Emelina Navarro Neutrophils/100 WBC (Bld) 88.4 % Critically high 43.0-75.0 [facility] Comment on above: Performed By: #### C BC ####[facility] Ddotvbfdoa8761 [place] [phone]. Emelina Navarro Platelet mean volume (Bld) [Entitic vol] 9.7 fL Normal 9.5-13.5 [facility] Comment on above: Performed By: #### C BC ####[facility] Budnpbyscj4155 [place] [phone]. Emelina Ramon PLT 211 103/ul Normal 150-450 [facility] Comment on above: Performed By: #### C BC ####[facility] Hwyxfdanzo6119 [place] [phone]. Emelina Navarro RBC 4.69 106/ul Critically low 4.70-6.10 [facility] Comment on above: Performed By: #### C BC ####[facility] Nkasjvvjqn7248 [place] [address]Dr. Emelina Navarro WBC 20.2 103/ul Critically high 4.0-11.0 [facility] Comment on above: Performed By: #### C BC ####[facility] Yzlnccyfyg8840 [place] [address]Dr. Emelina Navarro PROF 14(COMP METB)on 022 Albumin [Mass/Vol] 2.9 g/dL Critically low 3.4-5.0 [facility] Comment on above: Performed By: #### C MP ####[facility] Fugjzcvnkp13[address] [place], [place] [address]Dr. Emelina Navarro Albumin/Globulin [Mass ratio] 0.7 {ratio} Normal [facility] Comment on above: Performed By: #### C MP ####[facility] Tmndrwyhyj8039[address] [place], [place] [address]Dr. Emelina Navarro ALP [Catalytic activity/Vol] 77 U/L Normal 46-116 [facility] Comment on above: Performed By: #### C MP ####[facility] Ehvlpazqaf7635[address] [place], [place] [address]Dr. Emelina Navarro ALT [Catalytic activity/Vol] 26 U/L Normal 16-63 [facility] Comment on above: Performed By: #### C MP ####[facility] Nuitzkogca9326[address] [place], [place] [address]Dr. Emelina Navarro Anion gap [Moles/Vol] 13.2 mmol/L Normal [facility] Comment on above: Performed By: #### C MP ####[facility] Wnpymtzbud59[address] [place], [place] [address]Dr. Emelina Navarro AST [Catalytic activity/Vol] 18 U/L Normal 15-37 [facility] Comment on above: Performed By: #### C MP ####[facility] Ampbelhpjf4105 [place] [phone]. Emelina Navarro Bilirubin [Mass/Vol] 0.8 mg/dL Normal 0.2-1.0 The [facility] Comment on above: Performed By: #### C MP ####[facility] Grielmhsrq5147 [place] [phone]. Emelina Navarro Calcium [Mass/Vol] 8.4 mg/dL Critically low 8.5-10.1 Th [facility] Comment on above: Performed By: #### C MP ####[facility] Puueusvyjk4710 [place] [phone]. Emelina Navarro Chloride [Moles/Vol] 101 mmol/L Normal 98-107 [facility] Comment on above: Performed By: #### C MP ####[facility] Ejbvenyqzu7862 [place] [phone]. Emelina Navarro CO2 [Moles/Vol] 27.9 mmol/L Normal 21.0-32.0 The [facility] Comment on above: Performed By: #### C MP ####[facility] Amzwzjiupa0813 [place] [phone]. Emelina Navarro Creatinine [Mass/Vol] 1.90 mg/dL Critically high 0.70-1.30 [facility] Comment on above: Performed By: #### C MP ####[facility] Xbudxbmfeo7444 [place] [phone]. Emelina Navarro EGFR-AF GABONESE 43 mL/min/1.73m2 Critically low >=60 The [facility] Comment on above: Performed By: #### C MP ####[facility] Tcpkprimkg0789 [place] [phone]. Emelina Navarro EGFR-NON AF GABONESE 36 mL/min/1.73m2 Critically low >=60 The [facility] Comment on above: Performed By: #### C MP ####[facility] Vfhniygzeg4342 [place] [phone]. Emelina Navarro Globulin (S) [Mass/Vol] 3.9 g/dL Normal The [facility] Comment on above: Performed By: #### C MP ####[facility] Jghydkzfqz9139 [place] [phone]. Emelina Navarro Glucose [Mass/Vol] 175 mg/dL Critically high 74-106 [facility] Comment on above: Performed By: #### C MP ####[facility] Mexuwrlqwv7355 [place] [phone]. Emelina Navarro Potassium [Moles/Vol] 4.1 mmol/L Normal 3.5-5.1 [facility] Comment on above: Performed By: #### C MP ####[facility] Pqromfikkh8670 [place] [phone]. Emelina Navarro Protein [Mass/Vol] 6.8 g/dL Normal 6.4-8.2 [facility] Comment on above: Performed By: #### C MP ####[facility] Ikyqmnnocs7554 [place] [address]Dr. Emelina Navarro Sodium [Moles/Vol] 138 mmol/L Normal 136-145 [facility] Comment on above: Performed By: #### C MP ####[facility] Brwtfarams5242 [place] [phone]. Emelina Navarro Urea nitrogen [Mass/Vol] 46.0 mg/dL Critically high 7.0-18.0 [facility] Comment on above: Performed By: #### C MP ####[facility] Ylpeldvanf6375 [place] [address]Dr. Emelina Navarro Urea nitrogen/Creatinine [Mass ratio] 24.2 mg/mg Normal [facility] Comment on above: Performed By: #### C MP ####[facility] Rufaulinxf9981 [place] [phone]. Emelina Navarro PROTIMEon 06-15-2022 INR Coag (PPP) [Relative time] 3.34 {INR} Normal [facility] Comment on above: Performed By: #### P T ####[facility] Fnjtghhrjv4032 [place] [address]Dr. Emelina Navarro INR GUIDELINES SEE BELOW Normal The [facility] Comment on above: Result Comment: WENDY RED INR: 2.0 - 3.0 CONDITIONS NOT LISTED BELOW 2.5 - 3.5 FOR PROSTHETIC HEART VALVE REPLACEMENT 2.5 - 3.5 RECURRENT THROMBOSIS Performed By: #### P T ####[facility] Cftjpukhvd5069 [place] [address]Dr. Emelina Navarro PT Coag (PPP) [Time] 33.3 s Critically high 9.0-11.6 The [facility] Comment on above: Performed By: #### P T ####[facility] Dfdxplgonw[address] [place], [place] [address]Dr. Emelina Navarro CBC AUTO DIFFon 06-14-2022 BASO # 0.0 103/ul Normal 0.0-0.1 The [facility] Comment on above: Performed By: #### C BC ####[facility] Mwzwdbivip8[address] [place], [place] [address]Dr. Emelina Navarro Basophils/100 WBC (Bld) 0.1 % Critically low 0.2-2.0 [facility] Comment on above: Performed By: #### C BC ####[facility] Btqpricgri5[address] [place], [place] [address]Dr. Emelina Navarro EO # 0.0 103/ul Normal 0.0-0.7 The [facility] Comment on above: Performed By: #### C BC ####[facility] Eaqswjrzgy8[address] [place], [place] [address]Dr. Emelina Navarro Eosinophils/100 WBC (Bld) 0.0 % Critically low 0.9-7.0 [facility] Comment on above: Performed By: #### C BC ####[facility] Zvfnjoznoa[address] [place], [place] [address]Dr. Emelina Navarro Erythrocyte distribution width (RBC) [Ratio] 17.0 % Critically high 11.0-15.0 The [facility] Comment on above: Performed By: #### C BC ####[facility] Qguqvakeym497[address] [place], [place] [address]Dr. Emelina Navarro Hematocrit (Bld) [Volume fraction] 40.2 % Critically low 42.0-54.0 The [facility] Comment on above: Performed By: #### C BC ####[facility] Efinvlvrtm5474 [place] [address]Dr. Emelina Navarro Hemoglobin (Bld) [Mass/Vol] 13.0 g/dL Critically low 14.0-18.0 The [facility] Comment on above: Performed By: #### C BC ####[facility] Qikenuukfo2278 [place] [address]Dr. Emelina Navarro IG # 0.18 10e3/ul Critically high 0.00-0.03 [facility] Comment on above: Performed By: #### C BC ####[facility] Hwkwcaesia767[address] [place], [place] [address]Dr. Emelina Navarro IG % 0.8 % Critically high 0.0-0.5 The [facility] Comment on above: Performed By: #### C BC ####[facility] Towfxhhuuv69[address] [place], [place] [address]Dr. Emelina Ramon LYMPH # 1.1 103/ul Critically low 1.2-3.8 The [facility] Comment on above: Performed By: #### C BC ####[facility] Czhudpooqy11[address] [place], [place] [address]Dr. Emelina Navarro Lymphocytes/100 WBC (Bld) 5.4 % Critically low 20.5-60.0 The [facility] Comment on above: Performed By: #### C BC ####[facility] Pljimkiiad5969 [place] [address]Dr. Emelina Navarro MANUAL DIFF REQ NO Normal [facility] Comment on above: Performed By: #### C BC ####[facility] Gjmstrdqwj2603 [place] [address]Dr. Emelina Navarro MCH (RBC) [Entitic mass] 28.4 pg Normal 25.9-34.0 The [facility] Comment on above: Performed By: #### C BC ####[facility] Pfolrzhcoq77[address] [place], [place] [address]Dr. Emelina Navarro MCHC (RBC) [Mass/Vol] 32.3 g/dL Normal 29.9-35.2 The [facility] Comment on above: Performed By: #### C BC ####[facility] Vppcobttqe9508 [place] [phone]. Emelina Navarro MCV (RBC) [Entitic vol] 88.0 fL Normal 80.0-94.0 The [facility] Comment on above: Performed By: #### C BC ####[facility] Ebrrsihpnz1031 [place] [phone]. Emelina Navarro MONO # 0.6 103/ul Normal 0.3-0.8 The [facility] Comment on above: Performed By: #### C BC ####[facility] Ewquchycqr9746 [place] [phone]. Emelina Navarro Monocytes/100 WBC (Bld) 3.0 % Normal 1.7-12.0 The [facility] Comment on above: Performed By: #### C BC ####[facility] Lhffcakfis7985 [place] [address]Dr. Emelina Navarro NEUT # 19.3 103/ul Critically high 1.4-6.5 The [facility] Comment on above: Performed By: #### C BC ####[facility] Aoaqxunbyx4537 [place] [phone]. Emelina Navarro Neutrophils/100 WBC (Bld) 90.7 % Critically high 43.0-75.0 The [facility] Comment on above: Performed By: #### C BC ####[facility] Fhutzflzmk[address] [place], [place] [id number]. Emelina Navarro Platelet mean volume (Bld) [Entitic vol] 10.6 fL Normal 9.5-13.5 The [facility] Comment on above: Performed By: #### C BC ####[facility] Dnjlfwtoxj3138 [place] [phone]. Emelina Ramon PLT 191 103/ul Normal 150-450 The [facility] Comment on above: Performed By: #### C BC ####[facility] Xztsmzykvx3524 [place] [phone]. Emelina Ramon RBC 4.57 106/ul Critically low 4.70-6.10 The [facility] Comment on above: Performed By: #### C BC ####[facility] Lwwmskuyhh3910 [place] [address]Dr. Emelina Ramon WBC 21.3 103/ul Critically high 4.0-11.0 [facility] Comment on above: Performed By: #### C BC ####[facility] Xnvwbfzmtm05[address] [place], [place] [address]Dr. Emelina Navarro PROF 14(COMP METB)on 022 Albumin [Mass/Vol] 2.5 g/dL Critically low 3.4-5.0 [facility] Comment on above: Performed By: #### C MP ####[facility] Vndgkhdntd2006[address] [place], [place] [address]Dr. Emelina Navarro Albumin/Globulin [Mass ratio] 0.6 {ratio} Normal [facility] Comment on above: Performed By: #### C MP ####[facility] Evfnejhpgn5617[address] [place], [place] [address]Dr. Emelina Navarro ALP [Catalytic activity/Vol] 77 U/L Normal 46-116 The [facility] Comment on above: Performed By: #### C MP ####[facility] Ocdkkyzcvp479[address] [place], [place] [address]Dr. Emelina Navarro ALT [Catalytic activity/Vol] 25 U/L Normal 16-63 [facility] Comment on above: Performed By: #### C MP ####[facility] Izhamungjm2415[address] [place], [place] [address]Dr. Emelina Navarro Anion gap [Moles/Vol] 12.5 mmol/L Normal [facility] Comment on above: Performed By: #### C MP ####[facility] Jraaodmvyz7596[address] [place], [place] [address]Dr. Emelina Navarro AST [Catalytic activity/Vol] 34 U/L Normal 15-37 [facility] Comment on above: Performed By: #### C MP ####[facility] Abmzlgtdna173[address] [place], [place] [address]Dr. Emelina Navarro Bilirubin [Mass/Vol] 0.9 mg/dL Normal 0.2-1.0 [facility] Comment on above: Performed By: #### C MP ####[facility] Rpowiqjgay2558 [place] [address]Dr. Emelina Navarro Calcium [Mass/Vol] 8.1 mg/dL Critically low 8.5-10.1 Th [facility] Comment on above: Performed By: #### C MP ####[facility] Cnrvnzcztu3976 [place] [address]Dr. Emelina Navarro Chloride [Moles/Vol] 101 mmol/L Normal 98-107 [facility] Comment on above: Performed By: #### C MP ####[facility] Kgxcsjqduo7394[address] [place], [place] [address]Dr. Emelina Navarro CO2 [Moles/Vol] 24.8 mmol/L Normal 21.0-32.0 [facility] Comment on above: Performed By: #### C MP ####[facility] Xhlweheqxu2903[address] [place], [place] [address]Dr. Emelina Navarro Creatinine [Mass/Vol] 1.93 mg/dL Critically high 0.70-1.30 [facility] Comment on above: Performed By: #### C MP ####[facility] Ogngotjhmp7301[address] [place], [place] [address]Dr. Emelina Ramon EGFR-AF GABONESE 42 mL/min/1.73m2 Critically low >=60 [facility] Comment on above: Performed By: #### C MP ####[facility] Cjownbqyxo7226[address] [place], [place] [address]Dr. Emelina Ramon EGFR-NON AF GABONESE 35 mL/min/1.73m2 Critically low >=60 [facility] Comment on above: Performed By: #### C MP ####[facility] Hvfgwmwksx9329[address] [place], [place] [address]Dr. Emelina Ramon Globulin (S) [Mass/Vol] 3.9 g/dL Normal [facility] Comment on above: Performed By: #### C MP ####[facility] Mcweuuatyn2443[address] [place], [place] [address]Dr. Emelina Ramon Glucose [Mass/Vol] 236 mg/dL Critically high 74-106 [facility] Comment on above: Performed By: #### C MP ####[facility] Vmxileldgs8982 [place] [address]Dr. Emelina Navarro Potassium [Moles/Vol] 5.3 mmol/L Critically high 3.5-5.1 [facility] Comment on above: Performed By: #### C MP ####[facility] Knpmaluofi9339 [place] [address]Dr. Emelina Navarro Protein [Mass/Vol] 6.4 g/dL Normal 6.4-8.2 [facility] Comment on above: Performed By: #### C MP ####[facility] Tgwlescsmf1568[address] [place], [place] [address]Dr. Emelina Navarro Sodium [Moles/Vol] 133 mmol/L Critically low 136-145 Th [facility] Comment on above: Performed By: #### C MP ####[facility] Xkuatnjrnj576[address] [place], [place] [address]Dr. Emelina Navarro Urea nitrogen [Mass/Vol] 43.0 mg/dL Critically high 7.0-18.0 [facility] Comment on above: Performed By: #### C MP ####[facility] Hxnkbtlzjg319[address] [place], [place] [address]Dr. Emelina Navarro Urea nitrogen/Creatinine [Mass ratio] 22.3 mg/mg Normal [facility] Comment on above: Performed By: #### C MP ####[facility] Pgftbxaqum6407[address] [place], [place] [address]Dr. Emelina Navarro PROTIMEon 06-14-2022 INR Coag (PPP) [Relative time] 4.39 {INR} Critically high [facility] Comment on above: Performed By: #### P T ####[facility] Kmegpjxsxn2345[address] [place], [place] [address]Dr. Emelina Navarro INR GUIDELINES SEE BELOW Normal [facility] Comment on above: Result Comment: WENDY RED INR: 2.0 - 3.0 CONDITIONS NOT LISTED BELOW 2.5 - 3.5 FOR PROSTHETIC HEART VALVE REPLACEMENT 2.5 - 3.5 RECURRENT THROMBOSIS Performed By: #### P T ####[facility] Xkkwyniwhy63[address] [place], [place] [address]Dr. Emelina Navarro PT Coag (PPP) [Time] 43.0 s Critically high 9.0-11.6 The [facility] Comment on above: Performed By: #### P T ####[facility] Ivalkuacop5286[address] [place], [place] [address]Dr. Emelina Navarro XR CHEST 1 Von 06-14-2022 XR CHEST 1 V Normal [facility] BNPon 06-13-2022 Natriuretic peptide B (Bld) [Mass/Vol] 9889.0 pg/mL Critically high <=900.0 The [facility] Comment on above: Performed By: #### B MP, BNP ####[facility] Hzdczlpuko4573[address] [place], [place] [address]Dr. Emelina Navarro CBC AUTO DIFFon 06-13-2022 BASO # 0.0 103/ul Normal 0.0-0.1 The [facility] Comment on above: Performed By: #### C BC ####[facility] Atautbubre74[address] [place], [place] [address]DrWesley Navarro Basophils/100 WBC (Bld) 0.1 % Critically low 0.2-2.0 [facility] Comment on above: Performed By: #### C BC ####[facility] Opccuyqnwh4048[address] [place], [place] [address]DrWesley Navarro EO # 0.0 103/ul Normal 0.0-0.7 The [facility] Comment on above: Performed By: #### C BC ####[facility] Oyigayrwhz24[address] [place], [place] [address]DrWesley Navarro Eosinophils/100 WBC (Bld) 0.0 % Critically low 0.9-7.0 The [facility] Comment on above: Performed By: #### C BC ####[facility] Iwglgqimjv9399[address] [place], [place] [address]DrWesley Navarro Erythrocyte distribution width (RBC) [Ratio] 17.4 % Critically high 11.0-15.0 The [facility] Comment on above: Performed By: #### C BC ####[facility] Wckhuwnbld360[address] [place], [place] [address]DrWesley Navarro Hematocrit (Bld) [Volume fraction] 43.5 % Normal 42.0-54.0 [facility] Comment on above: Performed By: #### C BC ####[facility] Npewxetgwi9901 [place] [address]Dr. Emelina Navarro Hemoglobin (Bld) [Mass/Vol] 14.1 g/dL Normal 14.0-18.0 [facility] Comment on above: Performed By: #### C BC ####[facility] Jvhaujbhkv8918 [place] [address]Dr. Emelina Navarro IG # 0.15 10e3/ul Critically high 0.00-0.03 [facility] Comment on above: Performed By: #### C BC ####[facility] Pwuuykwsld1240 [place] [address]Dr. Emelina Navarro IG % 0.8 % Critically high 0.0-0.5 [facility] Comment on above: Performed By: #### C BC ####[facility] Koauusmlrv8829 [place] [address]Dr. Emelina Navarro LYMPH # 0.9 103/ul Critically low 1.2-3.8 [facility] Comment on above: Performed By: #### C BC ####[facility] Pvavtgtxux8412 [place] [address]Dr. Emelina Navarro Lymphocytes/100 WBC (Bld) 5.0 % Critically low 20.5-60.0 [facility] Comment on above: Performed By: #### C BC ####[facility] Txhvcltzll2931 [place] [address]Dr. Emelina Navarro MANUAL DIFF REQ NO Normal [facility] Comment on above: Performed By: #### C BC ####[facility] Lpraindgfa8932 [place] [phone]. Emelina Navarro MCH (RBC) [Entitic mass] 28.8 pg Normal 25.9-34.0 [facility] Comment on above: Performed By: #### C BC ####[facility] Mdcsimppdg2706 [place] [phone]. Emelina Navarro MCHC (RBC) [Mass/Vol] 32.4 g/dL Normal 29.9-35.2 [facility] Comment on above: Performed By: #### C BC ####[facility] Lbkgjjyibp7012 [place] [phone] Emelina Ramon MCV (RBC) [Entitic vol] 89.0 fL Normal 80.0-94.0 [facility] Comment on above: Performed By: #### C BC ####[facility] Gyayomytjy0386 [place] [phone] Navarro MONO # 0.1 103/ul Critically low 0.3-0.8 [facility] Comment on above: Performed By: #### C BC ####[facility] Wasfqcpmoq1706 [place] [address]DrWesley Navarro Monocytes/100 WBC (Bld) 0.5 % Critically low 1.7-12.0 [facility] Comment on above: Performed By: #### C BC ####[facility] Leuzrpgvhc029[address] [place], [place] [address]Dr. Emelina Navarro NEUT # 17.4 103/ul Critically high 1.4-6.5 [facility] Comment on above: Performed By: #### C BC ####[facility] Zuvlmrmadi55[address] [place], [place] [address]DrWesley Navarro Neutrophils/100 WBC (Bld) 93.6 % Critically high 43.0-75.0 [facility] Comment on above: Performed By: #### C BC ####[facility] Nbzazjzfcr00[address] [place], [place] [address]Dr. Emelina Navarro Platelet mean volume (Bld) [Entitic vol] 9.8 fL Normal 9.5-13.5 [facility] Comment on above: Performed By: #### C BC ####[facility] Zkfvgaimft4548 [place] [phone]. Emelina Navarro PLT 186 103/ul Normal 150-450 [facility] Comment on above: Performed By: #### C BC ####[facility] Wxxmhphzqd9495 [place] [phone] Navarro RBC 4.89 106/ul Normal 4.70-6.10 [facility] Comment on above: Performed By: #### C BC ####[facility] Wsdkwzpxgn3987 [place] [address]Dr. Emelina Navarro WBC 18.6 103/ul Critically high 4.0-11.0 [facility] Comment on above: Performed By: #### C BC ####[facility] Jxcxxsdafg7103 [place] [phone]. Emelina Navarro CT CHEST WO CONon 06-13-2022 CT CHEST WO CON Normal [facility] CULTURE SPUTUMon 06-13-2022 CULTURE SPUTUM Culture Observations : NORMAL RESPIRATORY CEDRIC. Normal [facility] Comment on above: Performed By: #### S PUTCX ####[facility] Iojitfmogk8318 [place] [address]Dr. Emelina aNvarro ECHOCARDIO M/2D COMPLETEon 0 06-13-2022 ECHOCARDIO M/2D COMPLETE Normal [facility] POINT OF CARE GLUCOSEon 05-20 Glucose [Mass/Vol] 255 mg/dL Critically high 74-106 [facility] Comment on above: Performed By: #### P OCGLUC ####[facility] Sxkexvraps2[address] [place], [place] [address]Dr. Emelina Navarro Glucose [Mass/Vol] 408 mg/dL Critically high -106 [facility] Comment on above: Performed By: #### P OCGLUC ####[facility] Dqblzlhany2793 [place] [address]Dr. Emelina Navarro PROF CHEM 8 (BAS METB)on Anion gap [Moles/Vol] 14.7 mmol/L Normal [facility] Comment on above: Performed By: #### B MP, BNP ####[facility] Fpsnrtfumm9018 [place] [address]Dr. Emelina Nvaarro Calcium [Mass/Vol] 8.3 mg/dL Critically low 8.5-10.1 [facility] Comment on above: Performed By: #### B MP, BNP ####[facility] Eiszuttopy9133 [place] [address]Dr. Emelina Navarro Chloride [Moles/Vol] 102 mmol/L Normal 98-107 [facility] Comment on above: Performed By: #### B MP, BNP ####[facility] Sjapxalewu39[address] [place], [place] [address]Dr. Emelina Navarro CO2 [Moles/Vol] 26.0 mmol/L Normal 21.0-32.0 [facility] Comment on above: Performed By: #### B MP, BNP ####[facility] Txnkszdder[address] [place], [place] [address]Dr. Emelina Navarro Creatinine [Mass/Vol] 2.07 mg/dL Critically high 0.70-1.30 [facility] Comment on above: Performed By: #### B MP, BNP ####[facility] Ywhcgxgstr5516[address] [place], [place] [address]Dr. Emelina Ramon EGFR-AF GABONESE 39 mL/min/1.73m2 Critically low >=60 [facility] Comment on above: Performed By: #### B MP, BNP ####[facility] Unjwwvuonu7[address] [place], [place] [address]Dr. Emelina Navarro EGFR-NON AF GABONESE 32 mL/min/1.73m2 Critically low >=60 [facility] Comment on above: Performed By: #### B MP, BNP ####[facility] Jqmysirana9552[address] [place], [place] [address]Dr. Emelina Navarro Glucose [Mass/Vol] 245 mg/dL Critically high 74-106 [facility] Comment on above: Performed By: #### B MP, BNP ####[facility] Wfkeohqxzb38[address] [place], [place] [address]Dr. Emelina Navarro Potassium [Moles/Vol] 4.7 mmol/L Normal 3.5-5.1 [facility] Comment on above: Performed By: #### B MP, BNP ####[facility] Lfbnnqaawm0516[address] [place], [place] [address]Dr. Awildanitza Navarro Sodium [Moles/Vol] 138 mmol/L Normal 136-145 [facility] Comment on above: Performed By: #### B MP, BNP ####[facility] Osfysfaesb2332[address] [place], [place] [address]Dr. Emelina Navarro Urea nitrogen [Mass/Vol] 30.0 mg/dL Critically high 7.0-18.0 The [facility] Comment on above: Performed By: #### B MP, BNP ####[facility] Ghklcbqbpi6865[address] [place], [place] [address]Dr. Emelina Navarro Urea nitrogen/Creatinine [Mass ratio] 14.5 mg/mg Normal The [facility] Comment on above: Performed By: #### B MP, BNP ####[facility] Lxnohpssnz4432[address] [place], [place] [address]Dr. Emelina Navarro PROTIMEon 06-13-2022 INR Coag (PPP) [Relative time] 3.59 {INR} Normal [facility] Comment on above: Performed By: #### P T ####[facility] Qvfwvmfxkn5906[address] [place], [place] [address]Dr. Emelina Navarro INR GUIDELINES SEE BELOW Normal The [facility] Comment on above: Result Comment: WENDY RED INR: 2.0 - 3.0 CONDITIONS NOT LISTED BELOW 2.5 - 3.5 FOR PROSTHETIC HEART VALVE REPLACEMENT 2.5 - 3.5 RECURRENT THROMBOSIS Performed By: #### P T ####[facility] Pzikaiexgq7533[address] [place], [place] [address]Dr. Emelina Navarro PT Coag (PPP) [Time] 35.7 s Critically high 9.0-11.6 The [facility] Comment on above: Performed By: #### P T ####[facility] Dbaldzyyum[address] [place], [place] [address]Dr. Emelina Navarro SPUTUM GRAM STAINon 06-13-20 COMMENTS Normal The [facility] Comment on above: Performed By: #### S PUTGS ####[facility] Drkokfhfuh834214 [address] [place], [place] [address]Dr. Emelina Navarro DIPHTHEROIDS Normal The [facility] Comment on above: Performed By: #### S PUTGS ####[facility] Gpnoboevdv0425[address] [place], [place] [address]Dr. Emelina Navarro EPITHELIALS <25 Normal The [facility] Comment on above: Performed By: #### S PUTGS ####[facility] Z[address]mslvkils[address] [place] [address]Dr. Emelina Navarro FUNGAL ELEMENTS Normal The [facility] Comment on above: Performed By: #### S PUTGS ####[facility] Zntpksloyl44[address] [place] [address]Dr. Emelina Navarro GRAM NEG BACILLI Normal The [facility] Comment on above: Performed By: #### S PUTGS ####[facility] Lfdtjvyvjr9664[address] [place], [place] [address]Dr. Emelina Navarro GRAM NEG DIPPLOCOCCI Normal The [facility] Comment on above: Performed By: #### S PUTGS ####[facility] Uzrsxgrpzi8429[address] [place], [place] [address]Dr. Emelina Navarro GRAM POS BACILLI Normal The [facility] Comment on above: Performed By: #### S PUTGS ####[facility] Taqhjhkztd1693[address] [place], [place] [address]Dr. Emelina Navarro GRAM POSITIVE COCCI RARE Normal [facility] Comment on above: Performed By: #### S PUTGS ####[facility] Jdtumtajfc278[address] [place], [place] [address]Dr. Emelina Navarro WBC (Bld) [#/Vol] 10*3/uL Normal The [facility] Comment on above: Performed By: #### S PUTGS ####[facility] Ylyymbrbax697[address] [place], [place] [address]Dr. Emelina Navarro XR CHEST 1 Von 06-13-2022 XR CHEST 1 V Normal [facility] BNPon 06-12-2022 Natriuretic peptide B (Bld) [Mass/Vol] 6268.0 pg/mL Critically high <=900.0 The [facility] Comment on above: Performed By: #### B WELL TESTER, CMP ####[facility] Qgiflslwuh633[address] [place], [place] [address]Dr. Emelina Navarro CBC AUTO DIFFon 06-12-2022 BASO # 0.1 103/ul Normal 0.0-0.1 [facility] Comment on above: Performed By: #### C BC ####[facility] Ghtbcccvhp7093[address] [place], [place] [address]Dr. Emelina Navarro Basophils/100 WBC (Bld) 0.3 % Normal 0.2-2.0 The [facility] Comment on above: Performed By: #### C BC ####[facility] O[address]khcpc[address] [place] [address]Dr. Emelina Navarro EO # 0.1 103/ul Normal 0.0-0.7 The [facility] Comment on above: Performed By: #### C BC ####[facility] Tcegteoiay74[address] [place] [address]Dr. Emelina Navarro Eosinophils/100 WBC (Bld) 0.4 % Critically low 0.9-7.0 The [facility] Comment on above: Performed By: #### C BC ####[facility] Wquenmderg318[address] [place], [place] [address]Dr. Emelina Navarro Erythrocyte distribution width (RBC) [Ratio] 17.7 % Critically high 11.0-15.0 The [facility] Comment on above: Performed By: #### C BC ####[facility] Cmjrjkqzkb7228[address] [place], [place] [address]Dr. Emelina Navarro Hematocrit (Bld) [Volume fraction] 44.4 % Normal 42.0-54.0 The [facility] Comment on above: Performed By: #### C BC ####[facility] Cvcpocokxl8755[address] [place], [place] [address]Dr. Emelina Navarro Hemoglobin (Bld) [Mass/Vol] 14.3 g/dL Normal 14.0-18.0 The [facility] Comment on above: Performed By: #### C BC ####[facility] Lfistlnptn6663[address] [place], [place] [address]Dr. Emelina Navarro IG # 0.11 10e3/ul Critically high 0.00-0.03 The [facility] Comment on above: Performed By: #### C BC ####[facility] Ifbzyddcan073[address] [place], [place] [address]Dr. Emelina Navarro IG % 0.5 % Normal 0.0-0.5 The [facility] Comment on above: Performed By: #### C BC ####[facility] Nkwjdsqcge[address] [place] [id number]. Emelina Ramon LYMPH # 1.7 103/ul Normal 1.2-3.8 The [facility] Comment on above: Performed By: #### C BC ####[facility] Earqbvadsc75[address] [place] [address]Dr. Emelina Ramon Lymphocytes/100 WBC (Bld) 8.4 % Critically low 20.5-60.0 The [facility] Comment on above: Performed By: #### C BC ####[facility] Dgvtkbtmyr[address] [place] [address]Dr. Awildanitza Navarro MANUAL DIFF REQ NO Normal The [facility] Comment on above: Performed By: #### C BC ####[facility] Hkzbzzcfpc11[address] [place] [address]Dr. Emelina Ramon MCH (RBC) [Entitic mass] 28.3 pg Normal 25.9-34.0 The [facility] Comment on above: Performed By: #### C BC ####[facility] Zfyvumvwzp[address] [place], [place] [address]Dr. Emelina Ramon MCHC (RBC) [Mass/Vol] 32.2 g/dL Normal 29.9-35.2 The [facility] Comment on above: Performed By: #### C BC ####[facility] P[address]wnasrdq[address] [place] [address]Dr. Awildanitza Navarro MCV (RBC) [Entitic vol] 87.9 fL Normal 80.0-94.0 The [facility] Comment on above: Performed By: #### C BC ####[facility] Aigcxsvidu33[address] [place] [address]Dr. Emelina Ramon MONO # 1.4 103/ul Critically high 0.3-0.8 [facility] Comment on above: Performed By: #### C BC ####[facility] Kkrdriexqj9645 [place] [address]Dr. Awildanitza Navarro Monocytes/100 WBC (Bld) 7.1 % Normal 1.7-12.0 The [facility] Comment on above: Performed By: #### C BC ####[facility] Vzbjaaljsp1072 [place] [id number]. Emelina Navarro NEUT # 16.8 103/ul Critically high 1.4-6.5 The [facility] Comment on above: Performed By: #### C BC ####[facility] Wsukkpfkul030[address] [place] [address]Dr. Emelina Navarro Neutrophils/100 WBC (Bld) 83.3 % Critically high 43.0-75.0 The [facility] Comment on above: Performed By: #### C BC ####[facility] Iswibpaytp0769[address] [place], [place] [address]Dr. Emelina Navarro Platelet mean volume (Bld) [Entitic vol] 10.0 fL Normal 9.5-13.5 The [facility] Comment on above: Performed By: #### C BC ####[facility] Uanegwjuus7634[address] [place], [place] [address]Dr. Emelina Navarro PLT 227 103/ul Normal 150-450 The [facility] Comment on above: Performed By: #### C BC ####[facility] Ojvwocsrwj1917[address] [place], [place] [address]Dr. Emelina Navarro RBC 5.05 106/ul Normal 4.70-6.10 The [facility] Comment on above: Performed By: #### C BC ####[facility] Oygomcnwtf6757[address] [place], [place] [address]Dr. Emelina Navarro WBC 20.2 103/ul Critically high 4.0-11.0 The [facility] Comment on above: Performed By: #### C BC ####[facility] Utnqzeqtyr2596[address] [place], [place] [address]Dr. Emelina Navarro CULTURE BLOODon 06-12-2022 Microscopic examination of blood, culture Culture Observations: NO GROWTH AT 5 DAYS. Normal The [facility] Comment on above: Performed By: #### B LDCX2 ####[facility] Tribakrmhs8032[address] [place], [place] [address]Dr. Emelina Navarro Microscopic examination of blood, culture Culture Observations: NO GROWTH AT 5 DAYS. Normal The [facility] Comment on above: Performed By: #### B LDCX1 ####[facility] Jpibwettnq5449[address] [place], [place] [address]Dr. Awildanitza Ramon Covid-19 PCR (CVDTBH)on 05-20 SARS-CoV-2 (COVID-19) RNA RADHA+probe Ql (Unsp spec) Not detected Normal NOT DETECTED The [facility] Comment on above: Result Comment: When diagnostic testing is negative, the possibility of a false negative should be considered inthe context of a patient's recent exposures and the presence of clinical signs and symptomsconsistent with SARS-CoV-2.This test is not yet approved or cleared by the [place] FDA. When there are no FDA-approved or cleared tests available, and other criteria are met, FDA can make tests available under an emergency access mechanism called an Emergency Use Authorization (EUA). The EUA for this test is supported by the [employer] Staff Member of Health and Human Service's declaration that circumstances exist to justify the emergency use of in vitro diagnostics for the detection and/or diagnosis of the virus that causes COVID-19. This EUA will remain in effect for the duration of the COVID-19 declaration justifying emergency of IVDs, unless it is terminated or revoked by the FDA (after which the test may no longer be used). Performed By: #### C VDTB ####[facility] Opusbdebdo0811[address] [place], [place] [address]Dr. Emelina Navarro ER URINE PROFILEon Bilirubin Ql (U) Negative Normal NEGATIVE The [facility] Comment on above: Performed By: #### E RUR ####[facility] Mfzeplsgie8778[address] [place], [place] [address]Dr. Emelina Navarro Clarity (U) CLEAR Normal CLEAR The [facility] Comment on above: Performed By: #### E RUR ####[facility] Knnnpeysxc785[address] [place], [place] [address]Dr. Emelina Navarro Color (U) YELLOW Normal YELLOW The [facility] Comment on above: Performed By: #### E RUR ####[facility] Ndbefmggxg9815[address] [place], [place] [address]Dr. Emelina Navarro ERUAHD A micrscopic examina tion will be performed if indicated. Normal The [facility] Comment on above: Performed By: #### E RUR ####[facility] Zvjzmgpmlb3174 [place] [address]Dr. Emelina Navarro Glucose Ql (U) >1000 Abnormal NEGATIVE The [facility] Comment on above: Performed By: #### E RUR ####[facility] Dirsnqtgmh3231 [place] [address]Dr. Emelina Navarro Hemoglobin Ql (U) Negative Normal NEGATIVE The [facility] Comment on above: Performed By: #### E RUR ####[facility] Ohrkzvhnga3158[address] [place], [place] [address]Dr. Emelina Navarro Ketones Ql (U) Negative Normal NEGATIVE The [facility] Comment on above: Performed By: #### E RUR ####[facility] Rrigsmccng6258[address] [place], [place] [address]Dr. Emelina Navarro LEUKOCYTES Negative Normal NEGATIVE The [facility] Comment on above: Performed By: #### E RUR ####[facility] Bbpevizeob7432[address] [place], [place] [address]Dr. Emelina Navarro Nitrite Ql (U) Negative Normal NEGATIVE The [facility] Comment on above: Performed By: #### E RUR ####[facility] Mbpjqltcsd9523[address] [place], [place] [address]Dr. Emelina Navarro pH (U) 6.0 [pH] Normal 5-9 [facility] Comment on above: Performed By: #### E RUR ####[facility] Gxzobwzarh5601[address] [place], [place] [address]Dr. Emelina Navarro SPEC GRAVITY 1.010 Normal 1.005-<=1. 025 The [facility] Comment on above: Performed By: #### E RUR ####[facility] Syxsbzzrep023014 [address] [place], [place] [address]Dr. Emelian Navarro UA PROTEIN Negative Normal NEGATIVE/ TRACE The [facility] Comment on above: Performed By: #### E RUR ####[facility] Lrissratae2944[address] [place], [place] [address]Dr. Emelina Navarro UR MICRO IND NOT INDICATED Normal The [facility] Comment on above: Performed By: #### E RUR ####[facility] Wzcehyufns3060 [place] [address]Dr. Emelina Navarro Urobilinogen Qn (U) 1.0 {Ashley'U}/dL Normal 0.2 - 1. 0 [facility] Comment on above: Performed By: #### E RUR ####[facility] Vhrczlocjt2142 [place] [address]Dr. Emelina Navarro LACTATE/LACTIC ACIDon 2021 Lactate [Moles/Vol] 1.2 mmol/L Normal 0.4-1.9 [facility] Comment on above: Performed By: #### L ACT ####[facility] Gkgliputak3688[address] [place], [place] [address]Dr. Emelina Navarro PROF 14(COMP METB)on 022 Albumin [Mass/Vol] 3.4 g/dL Normal 3.4-5.0 [facility] Comment on above: Performed By: #### B WELL TESTER, CMP ####[facility] Wedvhfudml427514 [address] [place], [place] [address]Dr. Emelina Navarro Albumin/Globulin [Mass ratio] 0.8 {ratio} Normal [facility] Comment on above: Performed By: #### B WELL TESTER, CMP ####[facility] Emegfexrgo7955[address] [place], [place] [address]Dr. Emelina Navarro ALP [Catalytic activity/Vol] 100 U/L Normal 46-116 [facility] Comment on above: Performed By: #### B WELL TESTER, CMP ####[facility] Uhlwhjglui490[address] [place], [place] [address]Dr. Emelina Navarro ALT [Catalytic activity/Vol] 26 U/L Normal 16-63 [facility] Comment on above: Performed By: #### B WELL TESTER, CMP ####[facility] Ksidkhagzv804[address] [place], [place] [address]Dr. Emelina Navarro Anion gap [Moles/Vol] 11.3 mmol/L Normal [facility] Comment on above: Performed By: #### B WELL TESTER, CMP ####[facility] Regspyevvx0232[address] [place], [place] [address]Dr. Emelina Navarro AST [Catalytic activity/Vol] 19 U/L Normal 15-37 [facility] Comment on above: Performed By: #### B WELL TESTER, CMP ####[facility] Dctyuskjde7649[address] [place], [place] [address]Dr. Emelina Navarro Bilirubin [Mass/Vol] 1.4 mg/dL Critically high 0.2-1.0 [facility] Comment on above: Performed By: #### B WELL TESTER, CMP ####[facility] Tgaufiqojh7923[address] [place], [place] [address]Dr. Emelina Navarro Calcium [Mass/Vol] 9.1 mg/dL Normal 8.5-10.1 [facility] Comment on above: Performed By: #### B WELL TESTER, CMP ####[facility] Xzyfgesedk6238[address] [place], [place] [address]Dr. Emelina Navarro Chloride [Moles/Vol] 103 mmol/L Normal 98-107 [facility] Comment on above: Performed By: #### B WELL TESTER, CMP ####[facility] Cczawurisw3684[address] [place], [place] [address]Dr. Emelina Navarro CO2 [Moles/Vol] 27.8 mmol/L Normal 21.0-32.0 [facility] Comment on above: Performed By: #### B WELL TESTER, CMP ####[facility] Kywbpxbuki0678[address] [place], [place] [address]Dr. Emelina Navarro Creatinine [Mass/Vol] 1.75 mg/dL Critically high 0.70-1.30 [facility] Comment on above: Performed By: #### B WELL TESTER, CMP ####[facility] Vpsaklbopx6599[address] [place], [place] [address]Dr. Emelina Navarro EGFR-AF GABONESE 47 mL/min/1.73m2 Critically low >=60 The [facility] Comment on above: Performed By: #### B WELL TESTER, CMP ####[facility] Eqousastsj5439[address] [place], [place] [address]Dr. Emelina Navarro EGFR-NON AF GABONESE 39 mL/min/1.73m2 Critically low >=60 The [facility] Comment on above: Performed By: #### B WELL TESTER, CMP ####[facility] Qksnrhyjqx86[address] [place], [place] [address]Dr. Emelina Navarro Globulin (S) [Mass/Vol] 4.1 g/dL Normal [facility] Comment on above: Performed By: #### B WELL TESTER, CMP ####[facility] Sxwnppkmmg9822 [place] [address]Dr. Emelina Navarro Glucose [Mass/Vol] 120 mg/dL Critically high 74-106 [facility] Comment on above: Performed By: #### B WELL TESTER, CMP ####[facility] Wmdlievxti0614 [place] [address]Dr. Emelina Navarro Potassium [Moles/Vol] 4.1 mmol/L Normal 3.5-5.1 [facility] Comment on above: Performed By: #### B WELL TESTER, CMP ####[facility] Wmdjjrspfb0172[address] [place], [place] [address]Dr. Emelina Navarro Protein [Mass/Vol] 7.5 g/dL Normal 6.4-8.2 [facility] Comment on above: Performed By: #### B WELL TESTER, CMP ####[facility] Nrlgvbyjbl8399[address] [place], [place] [address]Dr. Emelina Navarro Sodium [Moles/Vol] 138 mmol/L Normal 136-145 [facility] Comment on above: Performed By: #### B WELL TESTER, CMP ####[facility] Yhpmchazao3366[address] [place], [place] [address]Dr. Emelina Navarro Urea nitrogen [Mass/Vol] 24.0 mg/dL Critically high 7.0-18.0 [facility] Comment on above: Performed By: #### B WELL TESTER, CMP ####[facility] Ijsejavczs7436[address] [place], [place] [address]Dr. Emelina Navarro Urea nitrogen/Creatinine [Mass ratio] 13.7 mg/mg Normal [facility] Comment on above: Performed By: #### B WELL TESTER, CMP ####[facility] Rzoorwkmce8028[address] [place], [place] [address]Dr. Emelina Navarro SPUTUM CULTUREon 05-11-2022 Epithelial cells LM Ql (Urine sed) Few Normal The [facility] Comment on above: Performed By: #### C XSPTUM ####[facility] Tsuelyjhaj[address] [place], [place] [address]Hv. Emelina Navarro Gram Stain Evaluation Comment Normal The [facility] Comment on above: Result Comment: This specimen is of good quality and is acceptable for routinebacterial culture. Performed By: #### C XSPTUM ####[facility] Jdoigoqzub34[address] [place], [place] [address]Jb. Emelina Navarro Lower Respiratory Culture Final report Normal The [facility] Comment on above: Performed By: #### C XSPTUM ####[facility] Niakifmsry6[address] [place] [id number]. Emelina Navarro Result 1 Comment Normal The [facility] Comment on above: Result Comment: Few gram positive cocci Performed By: #### C XSPTUM ####[facility] Rbzfwpqxkx7436 [place] [id number]. Emelina Navarro Result Comment: Rout ine respiratory cedric Result 2 Normal The [facility] Comment on above: Performed By: #### C XSPTUM ####[facility] Pkdnpteqnh0156 [place] [id number]. Emelina Navarro Result 3 Normal The [facility] Comment on above: Performed By: #### C XSPTUM ####[facility] Xlucpqobcd[address] [place], [place] [address]Dr. Emelina Navarro Result 4 Normal [facility] Comment on above: Performed By: #### C XSPTUM ####[facility] Jplcjmivqh5763 [place] [id number]. Emelina Navarro White Blood Cells Few Normal The [facility] Comment on above: Performed By: #### C XSPTUM ####[facility] Jeidqrcnhp2224 [place] [id number]. Emelina Navarro CBC W MANUAL DIFFon 05-10-20 22 ATYPICAL LYMPH # Normal [facility] Comment on above: Performed By: #### Poonam LOJA ####[facility] Qgrvwgivdn9369 [place] [id number]. Emelina Navarro ATYPICAL LYMPH % Normal The [facility] Comment on above: Performed By: #### Poonam LOJA ####[facility] Ixkrfeghzm8699 [place] [id number]. Yilan Navarro BAND # 0.5 103/ul Critically high 0.0-0.3 The [facility] Comment on above: Performed By: #### C PURVI ####[facility] Hxjqrwcupy9444 [place] [address]Dr. Yilan Navarro BAND % 2 % Normal 0-5 The [facility] Comment on above: Performed By: #### C BCADRIAN ####[facility] Nwzelymzrx2396 [place] [address]Dr. Yinitza Navarro BASOM # 0.00 103/ul Normal 0.00-0.10 The [facility] Comment on above: Performed By: #### C PURVI ####[facility] Kliqnnoylo6[address] [place], [place] [address]Dr. Emelina Navarro BASOM % 0.0 % Critically low 0.2-2.0 The [facility] Comment on above: Performed By: #### C PURVI ####[facility] Pxttwyxtaf25[address] [place], [place] [address]Dr. Yilan Navarro BLAST # Normal The [facility] Comment on above: Performed By: #### C PURVI ####[facility] Liqoissolv7[address] [place], [place] [address]Dr. Yilan Navarro BLAST % Normal The [facility] Comment on above: Performed By: #### C PURVI ####[facility] Tvhabqdewy60[address] [place], [place] [address]Dr. Emelina Navarro CORRECTED WBC Normal 4.0-11.0 The [facility] Comment on above: Performed By: #### C PURVI ####[facility] Wqjmsiboai4026 [place] [address]Dr. Emelina Navarro EOS # 0.24 103/ul Normal 0.00-0.70 The [facility] Comment on above: Performed By: #### C PURVI ####[facility] Autublvlpe[address] [place], [place] [address]Dr. Emelina Navarro EOS% 1.0 % Normal 0.9-7.0 The [facility] Comment on above: Performed By: #### C PURVI ####[facility] Bfiqsppbuq5359 [place], [place] [address]Ae. Emelina Navarro HCT 41.6 % Critically low 42.0-54.0 The [facility] Comment on above: Performed By: #### C PURVI ####[facility] Yupfpmuytr1189 [place], [place] [address]Mb. Emelina Navarro HGB 13.2 g/dl Critically low 14.0-18.0 The [facility] Comment on above: Performed By: #### C PURVI ####[facility] Ojnfnyldvm9246 [place], [place] [address]Bf. Emelina Navarro LYMPHM # 0.71 103/ul Critically low 1.20-3.80 [facility] Comment on above: Performed By: #### C PURVI ####[facility] Ssnmgkigcg2232 [place], [place] [address]Dp. Emelina Navarro LYMPHM% 3.0 % Critically low 20.5-60.0 The [facility] Comment on above: Performed By: #### C PURVI ####[facility] Htvwjbakfc6008 [place], [place] [address]Vo. Emelina Navarro MCH 28.3 pg Normal 25.9-34.0 [facility] Comment on above: Performed By: #### C PURVI ####[facility] Khnojnhnqb8540 [place], [place] [address]Gv. Emelina Navarro MCHC 31.7 g/dl Normal 29.9-35.2 The [facility] Comment on above: Performed By: #### C PURVI ####[facility] Doloqnnklq3121 [place], [place] [address]Vl. Emelina Navarro MCV 89.3 fL Normal 80.0-94.0 The [facility] Comment on above: Performed By: #### Poonam LOJA ####[facility] Ggouexkxpf6068 [place], [place] [address]Ap. Emelina Navarro METAMYELOCYTE # Normal The [facility] Comment on above: Performed By: #### Poonam LOJA ####[facility] Wxhjlavrug4987 [place] [id number]. Emelina Navarro METAMYELOCYTE % Normal The [facility] Comment on above: Performed By: #### C PURVI ####[facility] Olppvpqtur0903 [place] [phone]. Emelina Navarro MONOM# 0.24 103/ul Critically low 0.30-0.80 The [facility] Comment on above: Performed By: #### C PURVI ####[facility] Secvphvzxq7517 [place] [phone]. Emelina Navarro MONOM% 1.0 % Critically low 1.7-12.0 [facility] Comment on above: Performed By: #### C PURVI ####[facility] Wvsabxxdpg7463 [place] [address]Dr. Emelina Navarro MPV 9.7 fL Normal 9.5-13.5 [facility] Comment on above: Performed By: #### C PURVI ####[facility] Fckafzrvvw[address] [place], [place] [id number]. Emelina Navarro MYELOCYTE # Normal [facility] Comment on above: Performed By: #### C PURVI ####[facility] Lygnsrakok9594 [place] [phone]. Emelina Navarro MYELOCYTE % Normal The [facility] Comment on above: Performed By: #### C PURVI ####[facility] Wfwsyfwwqn4429 [place] [phone]. Emelina Navarro NRBC Normal The [facility] Comment on above: Performed By: #### C PURVI ####[facility] Gsnkenxzzz9971 [place] [phone]. Emelina Navarro PLT 192 103/ul Normal 150-450 The [facility] Comment on above: Performed By: #### C PURVI ####[facility] Uhjpbpxmfq5889 [place] [phone]. Emelina Navarro RBC 4.66 106/ul Critically low 4.70-6.10 The [facility] Comment on above: Performed By: #### C PURVI ####[facility] Rwmqydwtum1597 [place] [phone]. Emelina Navarro RDW 16.1 % Critically high 11.0-15.0 [facility] Comment on above: Performed By: #### C BCMAN ####[facility] Uynbacdwzo5795 [place] [address]Dr. Emelina Navarro SEG # 21.95 103/ul Critically high 1.40-6.50 [facility] Comment on above: Performed By: #### C BCMAN ####[facility] Deodytmcmj5615 [place] [address]Dr. Emelina Navarro SEG % 93.0 % Critically high 43.0-75.0 [facility] Comment on above: Performed By: #### C BCMAN ####[facility] Apufayxspa6326 [place] [address]Dr. Emelina Navarro WBC 23.6 103/ul Critically high 4.0-11.0 [facility] Comment on above: Performed By: #### C BCMAN ####[facility] Pmpbkgzoox6870 [place] [address]Dr. Emelina Navarro CRPon 05-10-2022 CRP 2.3 mg/dL Critically high <=1.0 [facility] Comment on above: Performed By: #### C MP, HSTROPN, CRP ####[facility] Nluybyvaln0026 [place] [address]Dr. Emelina Navarro DIGOXINon 05-10-2022 DIG 0.6 ng/mL Critically low 0.9-2.0 [facility] Comment on above: Performed By: #### D IG ####[facility] Htmhaqfubj3393 [place] [address]Dr. Emelina Navarro POINT OF CARE GLUCOSEon 04-20 Glucose [Mass/Vol] 246 mg/dL Critically high 74-106 T [facility] Comment on above: Performed By: #### P OCGLUC ####[facility] Ykisywaaeu8475 [place] [address]DrWesley Emelina Ramon PROF 14(COMP METB)on 022 Albumin [Mass/Vol] 3.0 g/dL Critically low 3.4-5.0 [facility] Comment on above: Performed By: #### C MP, HSTROPN, CRP ####[facility] Smeqbmjiuw4551 [place] [address]Dr. Emelina Navarro Albumin/Globulin [Mass ratio] 0.7 {ratio} Normal [facility] Comment on above: Performed By: #### C MP, HSTROPN, CRP ####[facility] Ziljlzjllx3510 [place] [address]Dr. Emelina Navraro ALP [Catalytic activity/Vol] 95 U/L Normal 46-116 [facility] Comment on above: Performed By: #### C MP, HSTROPN, CRP ####[facility] Nxsnnhjwzb5[address] [place], [place] [address]Dr. Emelina Navarro ALT [Catalytic activity/Vol] 75 U/L Critically high 16-63 [facility] Comment on above: Performed By: #### C MP, HSTROPN, CRP ####[facility] Rjyjrzrsmw90[address] [place], [place] [address]Dr. Emelina Navarro Anion gap [Moles/Vol] 11.1 mmol/L Normal [facility] Comment on above: Performed By: #### C MP, HSTROPN, CRP ####[facility] Muqaahvoou7436[address] [place], [place] [address]Dr. Emelina Navarro AST [Catalytic activity/Vol] 25 U/L Normal 15-37 [facility] Comment on above: Performed By: #### C MP, HSTROPN, CRP ####[facility] Ezowbhpqtv39[address] [place], [place] [address]Dr. Awildanitza Navarro Bilirubin [Mass/Vol] 0.4 mg/dL Normal 0.2-1.0 [facility] Comment on above: Performed By: #### C MP, HSTROPN, CRP ####[facility] Gjfjddgref6424[address] [place], [place] [address]Dr. Awildanitza Navarro Calcium [Mass/Vol] 8.3 mg/dL Critically low 8.5-10.1 [facility] Comment on above: Performed By: #### C MP, HSTROPN, CRP ####[facility] Qihcgtceok0168 [place] [address]Dr. Emelina Navarro Chloride [Moles/Vol] 100 mmol/L Normal 98-107 The [facility] Comment on above: Performed By: #### C MP, HSTROPN, CRP ####[facility] Zlbtbdasxe4122 [place] [address]Dr. Emelina Navarro CO2 [Moles/Vol] 28.6 mmol/L Normal 21.0-32.0 The [facility] Comment on above: Performed By: #### C MP, HSTROPN, CRP ####[facility] Ojhisrudlk3603 [place] [address]Dr. Emelina Navarro Creatinine [Mass/Vol] 1.58 mg/dL Critically high 0.70-1.30 [facility] Comment on above: Performed By: #### C MP, HSTROPN, CRP ####[facility] Tpyvatjxbj4739 [place] [address]Dr. Emelina Navarro EGFR-AF GABONESE 53 mL/min/1.73m2 Critically low >=60 The [facility] Comment on above: Performed By: #### C MP, HSTROPN, CRP ####[facility] Kwlxzpwppo09[address] [place], [place] [address]Dr. Emelina Navarro EGFR-NON AF GABONESE 44 mL/min/1.73m2 Critically low >=60 The [facility] Comment on above: Performed By: #### C MP, HSTROPN, CRP ####[facility] Ucmvgserus2798 [place] [address]Dr. Emelina Navarro Globulin (S) [Mass/Vol] 4.2 g/dL Normal The [facility] Comment on above: Performed By: #### C MP, HSTROPN, CRP ####[facility] Uqwoplduia1935[address] [place], [place] [address]Dr. Emelina Navarro Glucose [Mass/Vol] 230 mg/dL Critically high 74-106 T [facility] Comment on above: Performed By: #### C MP, HSTROPN, CRP ####[facility] Tdlaulpphi6729 [place] [address]Dr. Emelina Navarro Potassium [Moles/Vol] 4.7 mmol/L Normal 3.5-5.1 [facility] Comment on above: Performed By: #### C MP, HSTROPN, CRP ####[facility] Cwnjjpzxxs744[address] [place], [place] [address]Dr. Emelina Navarro Protein [Mass/Vol] 7.2 g/dL Normal 6.4-8.2 [facility] Comment on above: Performed By: #### C MP, HSTROPN, CRP ####[facility] Dmrkbyhhnm0059[address] [place], [place] [address]Dr. Emelina Navarro Sodium [Moles/Vol] 135 mmol/L Critically low 136-145 [facility] Comment on above: Performed By: #### C MP, HSTROPN, CRP ####[facility] Camssfoydd5401[address] [place], [place] [address]Dr. Emelina Navarro Urea nitrogen [Mass/Vol] 45.0 mg/dL Critically high 7.0-18.0 [facility] Comment on above: Performed By: #### C MP, HSTROPN, CRP ####[facility] Zxpiqdqpvj1972[address] [place], [place] [address]Dr. Emelina Navarro Urea nitrogen/Creatinine [Mass ratio] 28.5 mg/mg Normal [facility] Comment on above: Performed By: #### C MP, HSTROPN, CRP ####[facility] Xbesbgxgdi008314 [address] [place], [place] [address]Dr. Emelina Navarro PROTIMEon 05-10-2022 INR Coag (PPP) [Relative time] 2.93 {INR} Normal [facility] Comment on above: Performed By: #### P T ####[facility] Voardvbuix7334[address] [place], [place] [address]Dr. Emelina Navarro INR GUIDELINES SEE BELOW Normal [facility] Comment on above: Result Comment: WENDY RED INR: 2.0 - 3.0 CONDITIONS NOT LISTED BELOW 2.5 - 3.5 FOR PROSTHETIC HEART VALVE REPLACEMENT 2.5 - 3.5 RECURRENT THROMBOSIS Performed By: #### P T ####[facility] Ljmmnjeian8133 [place] [address]Dr. Emelina Navarro PT Coag (PPP) [Time] 29.5 s Critically high 9.0-11.6 [facility] Comment on above: Performed By: #### P T ####[facility] Hgdgbveuke9784 [place] [address]Dr. Emelina Navarro TROPONIN, HIGH SENSITIVITYon 05-10-2022 HSTROP 38.3 pg/mL Normal 4.0-76.1 The [facility] Comment on above: Result Comment: CUT- OFF POINTS HAVE BEEN ESTABLISHED BASED ON THE FOURTH UNIVERSAL DEFINITIONS OF MYOCARDIALINFARCTION. THE UPPER REFERENCE LIMIT (URL) OF TROPONIN, DEFINED THE 99TH PERCENTILE OFcTnI DISTRIBUTION IN A REFERENCE POPULATION, HAS BEEN CONFIRMED THE DECISION THRESHOLDFOR ND DIAGNOSIS. Performed By: #### C MP, HSTROPN, CRP ####[facility] Yyvvpcvajd6627[address] [place], [place] [address]Dr. Emelina Navarro CBC AUTO DIFFon 05-09-2022 BASO # 0.0 103/ul Normal 0.0-0.1 [facility] Comment on above: Performed By: #### C BC ####[facility] Wljbinrttb0044[address] [place], [place] [address]Dr. Emelina Navarro Basophils/100 WBC (Bld) 0.1 % Critically low 0.2-2.0 [facility] Comment on above: Performed By: #### C BC ####[facility] Okykqiaqvk[address] [place], [place] [address]Dr. Emelina Navarro EO # 0.0 103/ul Normal 0.0-0.7 The [facility] Comment on above: Performed By: #### C BC ####[facility] Ahpkgzvhqz015314 [address] [place], [place] [address]Dr. Emelina Navarro Eosinophils/100 WBC (Bld) 0.0 % Critically low 0.9-7.0 The [facility] Comment on above: Performed By: #### C BC ####[facility] Zjuhciieoa329[address] [place], [place] [address]Dr. Emelina Navarro Erythrocyte distribution width (RBC) [Ratio] 15.9 % Critically high 11.0-15.0 [facility] Comment on above: Performed By: #### C BC ####[facility] Kfjhnuipxf2042 [place] [address]DrWesley Navarro Hematocrit (Bld) [Volume fraction] 42.7 % Normal 42.0-54.0 [facility] Comment on above: Performed By: #### C BC ####[facility] Kmzllcdoow1758 [place] [address]DrWesley Navarro Hemoglobin (Bld) [Mass/Vol] 13.5 g/dL Critically low 14.0-18.0 [facility] Comment on above: Performed By: #### C BC ####[facility] Soobdtrdts4555[address] [place], [place] [address]DrWesley Navarro IG # 0.14 10e3/ul Critically high 0.00-0.03 [facility] Comment on above: Performed By: #### C BC ####[facility] Pgpsfqrpha811[address] [place], [place] [address]DrWesley Navarro IG % 0.8 % Critically high 0.0-0.5 [facility] Comment on above: Performed By: #### C BC ####[facility] Bgoohqapqw1232[address] [place], [place] [address]DrWesley Navarro LYMPH # 1.1 103/ul Critically low 1.2-3.8 The [facility] Comment on above: Performed By: #### C BC ####[facility] Vvcnymdsxy4301[address] [place], [place] [address]Dr. Emelina Navarro Lymphocytes/100 WBC (Bld) 6.2 % Critically low 20.5-60.0 [facility] Comment on above: Performed By: #### C BC ####[facility] Uemgnzibdv0914[address] [place], [place] [address]DrWesley Navarro MANUAL DIFF REQ NO Normal [facility] Comment on above: Performed By: #### C BC ####[facility] Yznxzwdhte008014 [address] [place], [place] [address]DrWesley Navarro MCH (RBC) [Entitic mass] 28.5 pg Normal 25.9-34.0 [facility] Comment on above: Performed By: #### C BC ####[facility] Gnhneofkmk3032 [place] [address]DrWesley Navarro MCHC (RBC) [Mass/Vol] 31.6 g/dL Normal 29.9-35.2 The [facility] Comment on above: Performed By: #### C BC ####[facility] Wbeidgeolp415[address] [place], [place] [address]DrWesley Navarro MCV (RBC) [Entitic vol] 90.3 fL Normal 80.0-94.0 The [facility] Comment on above: Performed By: #### C BC ####[facility] Pzkllxauiv784[address] [place], [place] [address]DrWesley Navarro MONO # 0.4 103/ul Normal 0.3-0.8 The [facility] Comment on above: Performed By: #### C BC ####[facility] Pdomggiwkr4988[address] [place], [place] [address]DrWesley Navarro Monocytes/100 WBC (Bld) 2.1 % Normal 1.7-12.0 The [facility] Comment on above: Performed By: #### C BC ####[facility] Rymooekjfp1646[address] [place], [place] [address]DrWesley Navarro NEUT # 16.2 103/ul Critically high 1.4-6.5 The [facility] Comment on above: Performed By: #### C BC ####[facility] Qfonetmyqh750[address] [place], [place] [address]DrWesley Navarro Neutrophils/100 WBC (Bld) 90.8 % Critically high 43.0-75.0 The [facility] Comment on above: Performed By: #### C BC ####[facility] Whvzmvmftp9896[address] [place], [place] [address]DrWesley Navarro Platelet mean volume (Bld) [Entitic vol] 10.2 fL Normal 9.5-13.5 The [facility] Comment on above: Performed By: #### C BC ####[facility] Pkmketnnvq272[address] [place], [place] [address]DrWesley Navarro PLT 215 103/ul Normal 150-450 The [facility] Comment on above: Performed By: #### C BC ####[facility] Wvlszkhnvm4888 [place] [address]Dr. Emelina Navarro RBC 4.73 106/ul Normal 4.70-6.10 The [facility] Comment on above: Performed By: #### C BC ####[facility] Jrmmnegtvb3896 [place] [id number]. Emelina Navarro WBC 17.8 103/ul Critically high 4.0-11.0 [facility] Comment on above: Performed By: #### C BC ####[facility] Vtudhapdhc9463 [place] [address]Dr. Emelina Navarro CRPon 05-09-2022 CRP 4.4 mg/dL Critically high <=1.0 [facility] Comment on above: Performed By: #### C MP, HSTROPN, CRP ####[facility] Qwekmhpvjb9725[address] [place], [place] [address]Dr. Emelina Navarro DIGOXINon 05-09-2022 DIG 1.3 ng/mL Normal 0.9-2.0 [facility] Comment on above: Performed By: #### D IG ####[facility] Rvvbpomyvk3147 [place] [address]Dr. Emelina Navarro POINT OF CARE GLUCOSEon 04-20 Glucose [Mass/Vol] 319 mg/dL Critically high 74-106 [facility] Comment on above: Performed By: #### P OCGLUC ####[facility] Hhhcfslndd2153 [place] [address]Dr. Emelina Navarro Glucose [Mass/Vol] 259 mg/dL Critically high 74-106 [facility] Comment on above: Performed By: #### P OCGLUC ####[facility] Enarzjpzar2647 [place] [address]Dr. Emelina Navarro Glucose [Mass/Vol] 564 mg/dL Critically high 74-106 [facility] Comment on above: Result Comment: NURS E NOTIFIED Performed By: #### P OCGLUC ####[facility] Esbzpoljhu2446 [place] [address]Dr. Emelina Navarro PROF 14(COMP METB)on 022 Albumin [Mass/Vol] 3.1 g/dL Critically low 3.4-5.0 [facility] Comment on above: Performed By: #### C MP, HSTROPN, CRP ####[facility] Kndlfppibm0358 [place] [address]Dr. Emelina Navarro Albumin/Globulin [Mass ratio] 0.7 {ratio} Normal [facility] Comment on above: Performed By: #### C MP, HSTROPN, CRP ####[facility] Ysltpaljkh6279 [place] [address]Dr. Emelina Navarro ALP [Catalytic activity/Vol] 102 U/L Normal 46-116 [facility] Comment on above: Performed By: #### C MP, HSTROPN, CRP ####[facility] Oislzlfrrk6661 [place] [address]Dr. Emelina Navarro ALT [Catalytic activity/Vol] 81 U/L Critically high 16-63 [facility] Comment on above: Performed By: #### C MP, HSTROPN, CRP ####[facility] Opielbxftt262[address] [place], [place] [address]Dr. Emelina Navarro Anion gap [Moles/Vol] 12.3 mmol/L Normal [facility] Comment on above: Performed By: #### C MP, HSTROPN, CRP ####[facility] Yxjbqvaijc[address] [place], [place] [address]Dr. Emelina Navarro AST [Catalytic activity/Vol] 22 U/L Normal 15-37 [facility] Comment on above: Performed By: #### C MP, HSTROPN, CRP ####[facility] Ywehtcafen94[address] [place], [place] [address]Dr. Emelina Navarro Bilirubin [Mass/Vol] 0.6 mg/dL Normal 0.2-1.0 [facility] Comment on above: Performed By: #### C MP, HSTROPN, CRP ####[facility] Jsjjkmhjvl899[address] [place], [place] [address]Dr. Emelina Navarro Calcium [Mass/Vol] 8.6 mg/dL Normal 8.5-10.1 [facility] Comment on above: Performed By: #### C MP, HSTROPN, CRP ####[facility] Eejwzmmyfs8693 [place] [address]Dr. Emelina Navarro Chloride [Moles/Vol] 100 mmol/L Normal 98-107 [facility] Comment on above: Performed By: #### C MP, HSTROPN, CRP ####[facility] Kakmruwumt3194 [place] [address]Dr. Emelina Navarro CO2 [Moles/Vol] 28.4 mmol/L Normal 21.0-32.0 [facility] Comment on above: Performed By: #### C MP, HSTROPN, CRP ####[facility] Qrlsuskasi0054 [place] [address]Dr. Emelina Navarro Creatinine [Mass/Vol] 1.91 mg/dL Critically high 0.70-1.30 [facility] Comment on above: Performed By: #### C MP, HSTROPN, CRP ####[facility] Wpamolegbb1794 [place] [address]Dr. Emelina Navarro EGFR-AF GABONESE 43 mL/min/1.73m2 Critically low >=60 The [facility] Comment on above: Performed By: #### C MP, HSTROPN, CRP ####[facility] Mkdazdjzce8682 [place] [address]Dr. Emelina Navarro EGFR-NON AF GABONESE 35 mL/min/1.73m2 Critically low >=60 The [facility] Comment on above: Performed By: #### C MP, HSTROPN, CRP ####[facility] Iumpgfjlsh4796 [place] [address]Dr. Emelina Navarro Globulin (S) [Mass/Vol] 4.6 g/dL Normal The [facility] Comment on above: Performed By: #### C MP, HSTROPN, CRP ####[facility] Japazoujgn1122 [place] [address]Dr. Emelina Navarro Glucose [Mass/Vol] 242 mg/dL Critically high 74-106 [facility] Comment on above: Performed By: #### C MP, HSTROPN, CRP ####[facility] Szcoaprgzt9739 [place] [address]Dr. Emelina Navarro Potassium [Moles/Vol] 4.7 mmol/L Normal 3.5-5.1 The [facility] Comment on above: Performed By: #### C MP, HSTROPN, CRP ####[facility] Yuhvjuajep8221 [place] [address]Dr. Emelina Navarro Protein [Mass/Vol] 7.7 g/dL Normal 6.4-8.2 The [facility] Comment on above: Performed By: #### C MP, HSTROPN, CRP ####[facility] Yqorziecpf3636 [place] [address]Dr. Emelina Navarro Sodium [Moles/Vol] 136 mmol/L Normal 136-145 The [facility] Comment on above: Performed By: #### C MP, HSTROPN, CRP ####[facility] Azxswdqptv9839 [place] [address]Dr. Emelina Navarro Urea nitrogen [Mass/Vol] 48.0 mg/dL Critically high 7.0-18.0 [facility] Comment on above: Performed By: #### C MP, HSTROPN, CRP ####[facility] Xknwhqjvpz8887 [place] [address]Dr. Emelina Navarro Urea nitrogen/Creatinine [Mass ratio] 25.1 mg/mg Normal [facility] Comment on above: Performed By: #### C MP, HSTROPN, CRP ####[facility] Pdwznwzroz3849 [place] [address]Dr. Emelina Navarro PROTIMEon 05-09-2022 INR Coag (PPP) [Relative time] 2.59 {INR} Normal [facility] Comment on above: Performed By: #### P T ####[facility] Hstnkfaxaf5509 [place] [address]Dr. Emelina Ramon INR GUIDELINES SEE BELOW Normal The [facility] Comment on above: Result Comment: WENDY RED INR: 2.0 - 3.0 CONDITIONS NOT LISTED BELOW 2.5 - 3.5 FOR PROSTHETIC HEART VALVE REPLACEMENT 2.5 - 3.5 RECURRENT THROMBOSIS Performed By: #### P T ####[facility] Iddgtdfkyg4772 [place] [address]Dr. Emelina Navarro PT Coag (PPP) [Time] 26.3 s Critically high 9.0-11.6 The [facility] Comment on above: Performed By: #### P T ####[facility] Pluehkihin5387 [place] [address]Dr. Emelina Ramon TROPONIN, HIGH SENSITIVITYon 05-09-2022 HSTROP 45.4 pg/mL Normal 4.0-76.1 The [facility] Comment on above: Result Comment: CUT- OFF POINTS HAVE BEEN ESTABLISHED BASED ON THE FOURTH UNIVERSAL DEFINITIONS OF MYOCARDIALINFARCTION. THE UPPER REFERENCE LIMIT (URL) OF TROPONIN, DEFINED THE 99TH PERCENTILE OFcTnI DISTRIBUTION IN A REFERENCE POPULATION, HAS BEEN CONFIRMED THE DECISION THRESHOLDFOR ND DIAGNOSIS. Performed By: #### C MP, HSTROPN, CRP ####[facility] Pyprxvbtgq7536 [place] [address]Dr. Emelina Navarro XR FOOT RT MIN 3 VIEWSon XR FOOT RT MIN 3 VIEWS Normal The [facility] CARDIAC IMTIAZ 3-6on 2 CK [Catalytic activity/Vol] 34 U/L Critically low 39-308 The [facility] Comment on above: Performed By: #### C MREP ####[facility] Kcgpazhwgl0723 [place] [address]DrWesley Navarro CK.MB [Mass/Vol] 3.37 ng/mL Normal <=3.60 The [facility] Comment on above: Performed By: #### C MREP ####[facility] Ffluydkohq1817 [place] [address]Dr. Emelina Ramon HSTROP 53.5 pg/mL Normal 4.0-76.1 The [facility] Comment on above: Result Comment: CUT- OFF POINTS HAVE BEEN ESTABLISHED BASED ON THE FOURTH UNIVERSAL DEFINITIONS OF MYOCARDIALINFARCTION. THE UPPER REFERENCE LIMIT (URL) OF TROPONIN, DEFINED THE 99TH PERCENTILE OFcTnI DISTRIBUTION IN A REFERENCE POPULATION, HAS BEEN CONFIRMED THE DECISION THRESHOLDFOR ND DIAGNOSIS. Performed By: #### C MREP ####[facility] Nbwoxrwhrz1274 [place] [address]Dr. Emelina Navarro CK [Catalytic activity/Vol] 39 U/L Normal 39-308 [facility] Comment on above: Performed By: #### C MREP ####[facility] Ijngcjaadw9447 [place] [address]Dr. Emelina Navarro CK.MB [Mass/Vol] 2.74 ng/mL Normal <=3.60 The [facility] Comment on above: Performed By: #### C MREP ####[facility] Cymsuajjyu[address] [place], [place] [address]Dr. Emelina Navarro HSTROP 68.7 pg/mL Normal 4.0-76.1 The [facility] Comment on above: Result Comment: CUT- OFF POINTS HAVE BEEN ESTABLISHED BASED ON THE FOURTH UNIVERSAL DEFINITIONS OF MYOCARDIALINFARCTION. THE UPPER REFERENCE LIMIT (URL) OF TROPONIN, DEFINED THE 99TH PERCENTILE OFcTnI DISTRIBUTION IN A REFERENCE POPULATION, HAS BEEN CONFIRMED THE DECISION THRESHOLDFOR ND DIAGNOSIS. Performed By: #### C MREP ####[facility] Kttklmebli9632 [place] [address]Dr. Emelina Navarro CARDIAC IMTIAZ ADMITon 022 CK [Catalytic activity/Vol] 30 U/L Critically low 39-308 The [facility] Comment on above: Performed By: #### SHIVAM Mcgee MP ####[facility] Vaxfuwsvby6117 [place] [id number]. Emelina Navarro CK.MB [Mass/Vol] 2.88 ng/mL Normal <=3.60 The [facility] Comment on above: Performed By: #### SHIVAM Mcgee MP ####[facility] Hzangydpga8947 [place] [id number]. Emelina Navarro HSTROP 69.9 pg/mL Normal 4.0-76.1 The [facility] Comment on above: Result Comment: CUT- OFF POINTS HAVE BEEN ESTABLISHED BASED ON THE FOURTH UNIVERSAL DEFINITIONS OF MYOCARDIALINFARCTION. THE UPPER REFERENCE LIMIT (URL) OF TROPONIN, DEFINED THE 99TH PERCENTILE OFcTnI DISTRIBUTION IN A REFERENCE POPULATION, HAS BEEN CONFIRMED THE DECISION THRESHOLDFOR ND DIAGNOSIS. Performed By: #### B SHIVAM PRAJAPATI ####[facility] Bwkybupmxy4606 [place] [address]Dr. Emelina Navarro URBANO 79 ng/mL Normal 16-96 The [facility] Comment on above: Performed By: #### B SHIVAM PRAJAPATI ####[facility] Vpbwztmcyy062[address] [place], [place] [address]Dr. Awildanitza Navarro CBC AUTO DIFFon 05-08-2022 BASO # 0.0 103/ul Normal 0.0-0.1 The [facility] Comment on above: Performed By: #### C BC ####[facility] Tmfxtrgdfa3[address] [place], [place] [address]Dr. Emelina Navarro Basophils/100 WBC (Bld) 0.2 % Normal 0.2-2.0 The [facility] Comment on above: Performed By: #### C BC ####[facility] Gfkkekhzno5[address] [place], [place] [address]Dr. Emelina Navarro EO # 0.2 103/ul Normal 0.0-0.7 The [facility] Comment on above: Performed By: #### C BC ####[facility] Sisouecrqc668[address] [place], [place] [address]Dr. Emelina Navarro Eosinophils/100 WBC (Bld) 1.3 % Normal 0.9-7.0 The [facility] Comment on above: Performed By: #### C BC ####[facility] Xvzrodrfdd6[address] [place], [place] [address]Dr. Emelina Navarro Erythrocyte distribution width (RBC) [Ratio] 16.2 % Critically high 11.0-15.0 The [facility] Comment on above: Performed By: #### C BC ####[facility] Otslgtlmqr5537[address] [place], [place] [address]Dr. Emelina Navarro Hematocrit (Bld) [Volume fraction] 43.8 % Normal 42.0-54.0 The [facility] Comment on above: Performed By: #### C BC ####[facility] Axetiwlrso8135 [place] [phone]. Emelina Navarro Hemoglobin (Bld) [Mass/Vol] 13.9 g/dL Critically low 14.0-18.0 The [facility] Comment on above: Performed By: #### C BC ####[facility] Lcmfuvgmah3944 [place] [phone]. Emelina Navarro IG # 0.17 10e3/ul Critically high 0.00-0.03 The [facility] Comment on above: Performed By: #### C BC ####[facility] Eoyisbdrwz2437 [place] [phone]. Emelina Navarro IG % 1.0 % Critically high 0.0-0.5 The [facility] Comment on above: Performed By: #### C BC ####[facility] Rchiurjgwz1382 [place] [address]Dr. Awildanitza Ramon LYMPH # 1.1 103/ul Critically low 1.2-3.8 The [facility] Comment on above: Performed By: #### C BC ####[facility] Hpbzgacxqr5077 [place] [address]Dr. Emelina Ramon Lymphocytes/100 WBC (Bld) 6.5 % Critically low 20.5-60.0 The [facility] Comment on above: Performed By: #### C BC ####[facility] Fzyjerfvob2638 [place] [phone]. Emelina Ramon MANUAL DIFF REQ NO Normal The [facility] Comment on above: Performed By: #### C BC ####[facility] Ugpwyjhspv2409 [place] [address]Dr. Emelina Navarro MCH (RBC) [Entitic mass] 28.8 pg Normal 25.9-34.0 The [facility] Comment on above: Performed By: #### C BC ####[facility] Jugwemoblg3804 [place] [phone]. Emelina Ramon MCHC (RBC) [Mass/Vol] 31.7 g/dL Normal 29.9-35.2 The [facility] Comment on above: Performed By: #### C BC ####[facility] Jwtasgqgjn7967 [place] [phone]. Emelina Navarro MCV (RBC) [Entitic vol] 90.9 fL Normal 80.0-94.0 The [facility] Comment on above: Performed By: #### C BC ####[facility] Vdvopivepq5209 [place] [phone]. Emelina Navarro MONO # 1.4 103/ul Critically high 0.3-0.8 The [facility] Comment on above: Performed By: #### C BC ####[facility] Pyuybkwdjx3236 [place] [phone]. Emelina Navarro Monocytes/100 WBC (Bld) 8.5 % Normal 1.7-12.0 The [facility] Comment on above: Performed By: #### C BC ####[facility] Inwqjbkdvc[address] [place], [place] [id number]. Emelina Navarro NEUT # 13.9 103/ul Critically high 1.4-6.5 The [facility] Comment on above: Performed By: #### C BC ####[facility] Swlducpjkj34[address] [place], [place] [id number]. Emelina Navarro Neutrophils/100 WBC (Bld) 82.5 % Critically high 43.0-75.0 The [facility] Comment on above: Performed By: #### C BC ####[facility] Qulrksffbp34[address] [place], [place] [address]Dr. Emelina Navarro Platelet mean volume (Bld) [Entitic vol] 9.8 fL Normal 9.5-13.5 The [facility] Comment on above: Performed By: #### C BC ####[facility] Gggzjuqxzt8922 [place] [phone]. Emelina Navarro PLT 214 103/ul Normal 150-450 The [facility] Comment on above: Performed By: #### C BC ####[facility] Emyosihlcv[address] [place], [place] [address]Dr. Emelina Navarro RBC 4.82 106/ul Normal 4.70-6.10 The [facility] Comment on above: Performed By: #### C BC ####[facility] Zqeqisejkc3558 [place], [place] [address]Yj. Emelina Navarro WBC 16.8 103/ul Critically high 4.0-11.0 The [facility] Comment on above: Performed By: #### C BC ####[facility] Tawbwwlauf4197 [place], [place] [address]Op. Emelina Navarro CRPon 05-08-2022 CRP 2.5 mg/dL Critically high <=1.0 The [facility] Comment on above: Performed By: #### C RP ####[facility] Dulabjraej4985 [place], [place] [address]Wo. Emelina Navarro Covid-19 PCR (CVDTBH)on 04-20 SARS-CoV-2 (COVID-19) RNA RADHA+probe Ql (Unsp spec) Detected Critically abnormal NOT DETECTED The [facility] Comment on above: Result Comment: This test is not yet approved or cleared by the [place] FDA. When there are no FDA-approved or cleared tests available, and other criteria are met, FDA can make tests available under an emergency access mechanism called an Emergency Use Authorization (EUA). The EUA for this test is supported by the Cruise Staff Member of Health and Human Service's declaration that circumstances exist to justify the emergency use of in vitro diagnostics for the detection and/or diagnosis of the virus that causes COVID-19. This EUA will remain in effect for the duration of the COVID-19 declaration justifying emergency of IVDs, unless it is terminated or revoked by the FDA (after which the test may no longer be used). Performed By: #### C VDTBH ####[facility] Mijdyciyfs6117 [place] [phone]. Emelina Navarro DIGOXINon 05-08-2022 DIG 0.9 ng/mL Normal 0.9-2.0 The [facility] Comment on above: Performed By: #### D IG ####[facility] Emmhkdxxln6100 [place] [phone]. Emelina Navarro LACTATE/LACTIC ACIDon 2021 Lactate [Moles/Vol] 1.6 mmol/L Normal 0.4-1.9 [facility] Comment on above: Performed By: #### L ACT ####[facility] Xzehqxtflb2536 [place] [address]Dr. Emelina Navarro Lactate [Moles/Vol] 1.3 mmol/L Normal 0.4-1.9 [facility] Comment on above: Performed By: #### L ACT ####[facility] Srudklkual9856 [place] [address]Dr. Emelina Navarro POINT OF CARE GLUCOSEon 04-20 Glucose [Mass/Vol] 244 mg/dL Critically high [address] [place] [address] Comment on above: Performed By: #### P OCGLUC ####[facility] Hilwtsuaaa022[address] [place], [place] [address]Dr. Emelina Navarro Glucose [Mass/Vol] 405 mg/dL Critically high [address] [place] [address] Comment on above: Performed By: #### P OCGLUC ####[facility] Dyiesofbxs9015[address] [place], [place] [address]Dr. Emelina Navarro Glucose [Mass/Vol] 352 mg/dL Critically high [address] [place] [address] Comment on above: Performed By: #### P OCGLUC ####[facility] Agncaofzgn334[address] [place], [place] [address]Dr. Emelina Navarro Glucose [Mass/Vol] 285 mg/dL Critically high [address] [place] [address] Comment on above: Performed By: #### P OCGLUC ####[facility] Wrhnhbygni3574[address] [place], [place] [address]Dr. Emelina Navarro PROF CHEM 8 (BAS METB)on Anion gap [Moles/Vol] 13.7 mmol/L Normal [facility] Comment on above: Performed By: #### B MP ####[facility] Bblulroffb3956[address] [place], [place] [address]Dr. Emelina Navarro Calcium [Mass/Vol] 8.4 mg/dL Critically low 8.5-10.1 [facility] Comment on above: Performed By: #### B MP ####[facility] Kbyodhyzlk5418[address] [place], [place] [address]Dr. Emelina Navarro Chloride [Moles/Vol] 93 mmol/L Critically low 98-107 [facility] Comment on above: Performed By: #### B MP ####[facility] Rpejblztki5283 [place] [address]Dr. Emelina Navarro CO2 [Moles/Vol] 26.4 mmol/L Normal 21.0-32.0 [facility] Comment on above: Performed By: #### B MP ####[facility] Uaxfezqaky8274[address] [place], [place] [address]Dr. Emelina Navarro Creatinine [Mass/Vol] 2.23 mg/dL Critically high 0.70-1.30 [facility] Comment on above: Performed By: #### B MP ####[facility] Erakvtdugp4006[address] [place], [place] [address]Dr. Emelina Navarro EGFR-AF GABONESE 36 mL/min/1.73m2 Critically low >=60 [facility] Comment on above: Performed By: #### B MP ####[facility] Knhylrgmtj1622[address] [place], [place] [address]Dr. Emelina Navarro EGFR-NON AF GABONESE 30 mL/min/1.73m2 Critically low >=60 [facility] Comment on above: Performed By: #### B MP ####[facility] Gdmnnfjlpt899[address] [place], [place] [address]Dr. Emelina Navarro Glucose [Mass/Vol] 451 mg/dL Critically high 74-106 [facility] Comment on above: Performed By: #### B MP ####[facility] Zzplhnyurw5249[address] [place], [place] [address]Dr. Emelina Navarro Potassium [Moles/Vol] 5.1 mmol/L Normal 3.5-5.1 [facility] Comment on above: Performed By: #### B MP ####[facility] Mguzkucvpv7386[address] [place], [place] [address]Dr. Emelina Navarro Sodium [Moles/Vol] 128 mmol/L Critically low 136-145 [facility] Comment on above: Performed By: #### B MP ####[facility] Idrmfmgnon7645[address] [place], [place] [address]Dr. Emelina Navarro Urea nitrogen [Mass/Vol] 40.0 mg/dL Critically high 7.0-18.0 [facility] Comment on above: Performed By: #### B VICTORINA ####[facility] Xvjkmucifd8524 [place] [address]Dr. Emelina Navarro Urea nitrogen/Creatinine [Mass ratio] 17.9 mg/mg Normal [facility] Comment on above: Performed By: #### B VICTORINA ####[facility] Uisnunqxmd3846 [place] [address]Dr. Emelina Navarro Anion gap [Moles/Vol] 13.7 mmol/L Normal [facility] Comment on above: Performed By: #### B SHIVAM PRAJAPATI ####[facility] Soeatjokjl4346[address] [place], [place] [address]Dr. Emelina Navarro Calcium [Mass/Vol] 8.5 mg/dL Normal 8.5-10.1 [facility] Comment on above: Performed By: #### SHIVAM Mcgee MP ####[facility] Wijurdbhoq4029[address] [place], [place] [address]Dr. Emelina Navarro Chloride [Moles/Vol] 98 mmol/L Normal 98-107 [facility] Comment on above: Performed By: #### B SHIVAM PRAJAPATI ####[facility] Drftujddvs020[address] [place], [place] [address]Dr. Emelina Navarro CO2 [Moles/Vol] 25.0 mmol/L Normal 21.0-32.0 [facility] Comment on above: Performed By: #### B SHIVAM PRAJAPATI ####[facility] Vvyfwvbeii472[address] [place], [place] [address]Dr. Emelina Navarro Creatinine [Mass/Vol] 1.97 mg/dL Critically high 0.70-1.30 [facility] Comment on above: Performed By: #### B SHIVAM PRAJAPATI ####[facility] Bguldstkzd75[address] [place], [place] [address]Dr. Emelina Navarro EGFR-AF GABONESE 41 mL/min/1.73m2 Critically low >=60 [facility] Comment on above: Performed By: #### B SHIVAM PRAJAPATI ####[facility] Syfpcjmgzv7449 [place] [address]Dr. Emelina Navarro EGFR-NON AF GABONESE 34 mL/min/1.73m2 Critically low >=60 The [facility] Comment on above: Performed By: #### B SHIVAM PRAJAPATI ####[facility] Mepdbwdbxv0252 [place] [address]Dr. Emelina Navarro Glucose [Mass/Vol] 239 mg/dL Critically high 74-106 [facility] Comment on above: Performed By: #### B VICTORINA, SHIVAM ####[facility] Jpxcvrlylk39[address] [place], [place] [address]Dr. Emelina Navarro Potassium [Moles/Vol] 5.7 mmol/L Critically high 3.5-5.1 [facility] Comment on above: Performed By: #### B SHIVAM PRAJAPATI ####[facility] Wkfnjsnnfn1878[address] [place], [place] [address]Dr. Emelina Navarro Sodium [Moles/Vol] 131 mmol/L Critically low 136-145 [facility] Comment on above: Performed By: #### B SHIVAM PRAJAPATI ####[facility] Ohqnyfcece3694[address] [place], [place] [address]Dr. Emelina Navarro Urea nitrogen [Mass/Vol] 37.0 mg/dL Critically high 7.0-18.0 [facility] Comment on above: Performed By: #### B SHIVAM PRAJAPATI ####[facility] Xdarwpbjot1439[address] [place], [place] [address]Dr. Emelina Navarro Urea nitrogen/Creatinine [Mass ratio] 18.8 mg/mg Normal The [facility] Comment on above: Performed By: #### B VICTORINA, SHIVAM ####[facility] Xgacsbkbro6034[address] [place], [place] [address]Dr. Emelina Navarro PROTIMEon 05-08-2022 INR Coag (PPP) [Relative time] 2.28 {INR} Normal The [facility] Comment on above: Performed By: #### P T ####[facility] Tzyidydprm[address] [place], [place] [address]Dr. Emelina Navarro INR GUIDELINES SEE BELOW Normal The [facility] Comment on above: Result Comment: WENDY RED INR: 2.0 - 3.0 CONDITIONS NOT LISTED BELOW 2.5 - 3.5 FOR PROSTHETIC HEART VALVE REPLACEMENT 2.5 - 3.5 RECURRENT THROMBOSIS Performed By: #### P T ####[facility] Lgytjvawnc[address] [place], [place] [address]Dr. Emelina Navarro PT Coag (PPP) [Time] 23.3 s Critically high 9.0-11.6 [facility] Comment on above: Performed By: #### P T ####[facility] Fbfroqvihp[address] [place], [place] [address]DrWesley Navarro US FERNY DOP LEG LTon 05-08-20 22 US FERNY DOP LEG LT Normal [facility] XR CHEST 1 Von 05-08-2022 XR CHEST 1 V Normal [facility] CBC AUTO DIFFon 05-02-2022 BASO # 0.0 103/ul Normal 0.0-0.1 [facility] Comment on above: Performed By: #### C BC ####[facility] Znvbxosetw[address] [place], [place] [address]DrWesley Navarro Basophils/100 WBC (Bld) 0.2 % Normal 0.2-2.0 [facility] Comment on above: Performed By: #### C BC ####[facility] Erggvolymu226[address] [place], [place] [address]Dr. Emelina Navarro EO # 0.0 103/ul Normal 0.0-0.7 [facility] Comment on above: Performed By: #### C BC ####[facility] Bnvlhfoulj[address] [place], [place] [address]DrWesley Navarro Eosinophils/100 WBC (Bld) 0.2 % Critically low 0.9-7.0 [facility] Comment on above: Performed By: #### C BC ####[facility] Alutfajvoj[address] [place], [place] [address]DrWesley Navarro Erythrocyte distribution width (RBC) [Ratio] 16.5 % Critically high 11.0-15.0 [facility] Comment on above: Performed By: #### C BC ####[facility] Vskdzawcij9135[address] [place], [place] [address]Dr. Emelina Navarro Hematocrit (Bld) [Volume fraction] 42.0 % Normal 42.0-54.0 The [facility] Comment on above: Performed By: #### C BC ####[facility] Wbbatgqxbe8388 [place] [address]DrWesley Emelina Ramon Hemoglobin (Bld) [Mass/Vol] 13.3 g/dL Critically low 14.0-18.0 The [facility] Comment on above: Performed By: #### C BC ####[facility] Veeloxmbij454[address] [place], [place] [address]DrWesley Navarro IG # 0.14 10e3/ul Critically high 0.00-0.03 [facility] Comment on above: Performed By: #### C BC ####[facility] Cdanvrdiie7759[address] [place], [place] [address]DrWesley Navarro IG % 1.1 % Critically high 0.0-0.5 [facility] Comment on above: Performed By: #### C BC ####[facility] Nausdxxakt1076[address] [place], [place] [address]DrWesley Navarro LYMPH # 1.3 103/ul Normal 1.2-3.8 The [facility] Comment on above: Performed By: #### C BC ####[facility] Fhgbxdjbpu9404[address] [place], [place] [address]DrWesley Navarro Lymphocytes/100 WBC (Bld) 9.8 % Critically low 20.5-60.0 The [facility] Comment on above: Performed By: #### C BC ####[facility] Cvnutvonny7923[address] [place], [place] [address]DrWesley Navarro MANUAL DIFF REQ NO Normal [facility] Comment on above: Performed By: #### C BC ####[facility] Bnwokbchxt6089[address] [place], [place] [address]DrWesley Navarro MCH (RBC) [Entitic mass] 28.9 pg Normal 25.9-34.0 The [facility] Comment on above: Performed By: #### C BC ####[facility] Nliodeymfx4686[address] [place], [place] [address]DrWesley Navarro MCHC (RBC) [Mass/Vol] 31.7 g/dL Normal 29.9-35.2 The [facility] Comment on above: Performed By: #### C BC ####[facility] Lexxfgflvu2875 [place] [address]Dr. Emelina Ramon MCV (RBC) [Entitic vol] 91.1 fL Normal 80.0-94.0 The [facility] Comment on above: Performed By: #### C BC ####[facility] Omwvlwucmz5786 [place] [address]Dr. Emelina Navarro MONO # 1.2 103/ul Critically high 0.3-0.8 The [facility] Comment on above: Performed By: #### C BC ####[facility] Jbnovonybk0198[address] [place], [place] [address]Dr. Emelina Navarro Monocytes/100 WBC (Bld) 9.6 % Normal 1.7-12.0 The [facility] Comment on above: Performed By: #### C BC ####[facility] Zisfbfnhec278[address] [place], [place] [address]Dr. Emelina Navarro NEUT # 10.1 103/ul Critically high 1.4-6.5 The [facility] Comment on above: Performed By: #### C BC ####[facility] Hpcgaurquj075[address] [place], [place] [address]Dr. Emelina Navarro Neutrophils/100 WBC (Bld) 79.1 % Critically high 43.0-75.0 The [facility] Comment on above: Performed By: #### C BC ####[facility] Kizdfhrofz020[address] [place], [place] [address]Dr. Emelina Navarro Platelet mean volume (Bld) [Entitic vol] 10.0 fL Normal 9.5-13.5 The [facility] Comment on above: Performed By: #### C BC ####[facility] Rygmhttmcq1038[address] [place], [place] [address]Dr. Emelina Navarro PLT 188 103/ul Normal 150-450 The [facility] Comment on above: Performed By: #### C BC ####[facility] Xsxyvfxzzk2586[address] [place], [place] [address]Dr. Emelina Navarro RBC 4.61 106/ul Critically low 4.70-6.10 The [facility] Comment on above: Performed By: #### C BC ####[facility] Oqsvetgysz5846 [place] [address]Dr. Emelina Navarro WBC 12.8 103/ul Critically high 4.0-11.0 The [facility] Comment on above: Performed By: #### C BC ####[facility] Ikpnikgtiq9527 [place] [address]Dr. Emelina Navarro NM HEPATOBILIARY SCAN W EFon 05-02-2022 NM HEPATOBILIARY SCAN W EF Normal The [facility] PROF 14(COMP METB)on 022 Albumin [Mass/Vol] 2.7 g/dL Critically low 3.4-5.0 Th e [facility] Comment on above: Performed By: #### C MP ####[facility] Ygunhphjzh009[address] [place], [place] [address]Dr. Emelina Ramon Albumin/Globulin [Mass ratio] 0.7 {ratio} Normal [facility] Comment on above: Performed By: #### C MP ####[facility] Jqpqlimvmu6746 [place] [address]Dr. Emelina Ramon ALP [Catalytic activity/Vol] 65 U/L Normal 46-116 [facility] Comment on above: Performed By: #### C MP ####[facility] Ypvlxpxiby2227 [place] [address]Dr. Emelina Ramon ALT [Catalytic activity/Vol] 406 U/L Critically high 16-63 The [facility] Comment on above: Performed By: #### C MP ####[facility] Yajgwdmbpk3454 [place] [address]Dr. Awildanitza Ramon Anion gap [Moles/Vol] 8.1 mmol/L Normal [facility] Comment on above: Performed By: #### C MP ####[facility] Gquwsbbomn2420 [place] [address]Dr. Emelina Ramon AST [Catalytic activity/Vol] 101 U/L Critically high 15-37 The [facility] Comment on above: Performed By: #### C MP ####[facility] Uweegisazi1406 [place] [id number]. Emelina Navarro Bilirubin [Mass/Vol] 0.6 mg/dL Normal 0.2-1.0 [facility] Comment on above: Performed By: #### C MP ####[facility] Sjzbmqzbqx8203 [place] [phone]. Emelina Navarro Calcium [Mass/Vol] 7.7 mg/dL Critically low 8.5-10.1 Th [facility] Comment on above: Performed By: #### C MP ####[facility] Rugkpvejdb5702 [place] [phone]. Emelina Navarro Chloride [Moles/Vol] 104 mmol/L Normal 98-107 [facility] Comment on above: Performed By: #### C MP ####[facility] Lbfeyjgkyb6237 [place] [address]Dr. Emelina Navarro CO2 [Moles/Vol] 30.9 mmol/L Normal 21.0-32.0 [facility] Comment on above: Performed By: #### C MP ####[facility] Qzhepwhasq4556[address] [place], [place] [address]Dr. Emelina Navarro Creatinine [Mass/Vol] 1.54 mg/dL Critically high 0.70-1.30 [facility] Comment on above: Performed By: #### C MP ####[facility] Zagrevixqj968114 [address] [place], [place] [address]Dr. Emelina Navarro EGFR-AF GABONESE 55 mL/min/1.73m2 Critically low >=60 The [facility] Comment on above: Performed By: #### C MP ####[facility] Wjpzcxodwy82[address] [place], [place] [id number]. Emelina Navarro EGFR-NON AF GABONESE 45 mL/min/1.73m2 Critically low >=60 [facility] Comment on above: Performed By: #### C MP ####[facility] Yucfuqhjqb619[address] [place], [place] [id number]. Emelina Navarro Globulin (S) [Mass/Vol] 3.8 g/dL Normal [facility] Comment on above: Performed By: #### C MP ####[facility] Pbgjpcgckr6350 [place] [address]Dr. Emelina Navarro Glucose [Mass/Vol] 177 mg/dL Critically high 74-106 [facility] Comment on above: Performed By: #### C MP ####[facility] Lzrddzacdy9895 [place] [address]Dr. Emelina Navarro Potassium [Moles/Vol] 4.0 mmol/L Normal 3.5-5.1 [facility] Comment on above: Performed By: #### C MP ####[facility] Urhzupeckr2710 [place] [address]Dr. Emelina Navarro Protein [Mass/Vol] 6.5 g/dL Normal 6.4-8.2 [facility] Comment on above: Performed By: #### C MP ####[facility] Lfzqaqshra8756[address] [place], [place] [address]Dr. Emelina Navarro Sodium [Moles/Vol] 139 mmol/L Normal 136-145 [facility] Comment on above: Performed By: #### C MP ####[facility] Wnhbafhglw875714 [address] [place], [place] [address]Dr. Emelina Navarro Urea nitrogen [Mass/Vol] 38.0 mg/dL Critically high 7.0-18.0 [facility] Comment on above: Performed By: #### C MP ####[facility] Ztvteorqsl853[address] [place], [place] [address]Dr. Emelina Navarro Urea nitrogen/Creatinine [Mass ratio] 24.7 mg/mg Normal [facility] Comment on above: Performed By: #### C MP ####[facility] Wvezldcyyl1607[address] [place], [place] [address]Dr. Emelina Navarro PROTIMEon 05-02-2022 INR Coag (PPP) [Relative time] 2.57 {INR} Normal [facility] Comment on above: Performed By: #### P T ####[facility] Jnxvtlcjnt0684 [place] [address]Dr. Emelina Navarro INR GUIDELINES SEE BELOW Normal The [facility] Comment on above: Result Comment: WENDY RED INR: 2.0 - 3.0 CONDITIONS NOT LISTED BELOW 2.5 - 3.5 FOR PROSTHETIC HEART VALVE REPLACEMENT 2.5 - 3.5 RECURRENT THROMBOSIS Performed By: #### P T ####[facility] Xuhgqxkojv7848 [place] [address]Dr. Emelina Navarro PT Coag (PPP) [Time] 26.1 s Critically high 9.0-11.6 The [facility] Comment on above: Performed By: #### P T ####[facility] Hnaknqrlqw9547[address] [place], [place] [address]Dr. Emelina Navarro CBC AUTO DIFFon 05-01-2022 BASO # 0.0 103/ul Normal 0.0-0.1 The [facility] Comment on above: Performed By: #### C BC ####[facility] Iswlllxuwu2712[address] [place], [place] [address]Dr. Emelina Navarro Basophils/100 WBC (Bld) 0.1 % Critically low 0.2-2.0 [facility] Comment on above: Performed By: #### C BC ####[facility] Inpokvixgw636[address] [place], [place] [address]Dr. Emelina Navarro EO # 0.0 103/ul Normal 0.0-0.7 The [facility] Comment on above: Performed By: #### C BC ####[facility] Vwmbeyqxve7944[address] [place], [place] [address]Dr. Emelina Navarro Eosinophils/100 WBC (Bld) 0.0 % Critically low 0.9-7.0 The [facility] Comment on above: Performed By: #### C BC ####[facility] Jedoypxlvx957[address] [place], [place] [address]Dr. Emelina Navarro Erythrocyte distribution width (RBC) [Ratio] 16.5 % Critically high 11.0-15.0 The [facility] Comment on above: Performed By: #### C BC ####[facility] Nrllhupibw9644[address] [place], [place] [address]Dr. Emelina Navarro Hematocrit (Bld) [Volume fraction] 41.5 % Critically low 42.0-54.0 The [facility] Comment on above: Performed By: #### C BC ####[facility] Hbqdaryyqp6290 [place] [phone]. Emelina Navarro Hemoglobin (Bld) [Mass/Vol] 13.5 g/dL Critically low 14.0-18.0 The [facility] Comment on above: Performed By: #### C BC ####[facility] Pdzezsadul3688 [place] [phone]. Emelina Navarro IG # 0.12 10e3/ul Critically high 0.00-0.03 [facility] Comment on above: Performed By: #### C BC ####[facility] Wqwbqlngnd5275 [place] [phone]. Emelina Navarro IG % 0.7 % Critically high 0.0-0.5 [facility] Comment on above: Performed By: #### C BC ####[facility] Ynzxriprtt375[address] [place], [place] [address]Dr. Emelina Navarro LYMPH # 0.8 103/ul Critically low 1.2-3.8 The [facility] Comment on above: Performed By: #### C BC ####[facility] Lnmzoigpfc9088[address] [place], [place] [address]Dr. Emelina Navarro Lymphocytes/100 WBC (Bld) 4.7 % Critically low 20.5-60.0 [facility] Comment on above: Performed By: #### C BC ####[facility] Fisxzppijy2332 [place] [address]Dr. Emelina Navarro MANUAL DIFF REQ NO Normal [facility] Comment on above: Performed By: #### C BC ####[facility] Mfhyibdcoy319[address] [place], [place] [address]Dr. Emelina Navarro MCH (RBC) [Entitic mass] 28.9 pg Normal 25.9-34.0 The [facility] Comment on above: Performed By: #### C BC ####[facility] Gsgjqnfvpe8928[address] [place], [place] [address]Dr. Emelina Navarro MCHC (RBC) [Mass/Vol] 32.5 g/dL Normal 29.9-35.2 The [facility] Comment on above: Performed By: #### C BC ####[facility] Wmymroqtrd1311 [place] [phone]. Emelina Navarro MCV (RBC) [Entitic vol] 88.9 fL Normal 80.0-94.0 The [facility] Comment on above: Performed By: #### C BC ####[facility] Bbxwgwyice4557 [place] [phone]. Emelina Navarro MONO # 1.0 103/ul Critically high 0.3-0.8 [facility] Comment on above: Performed By: #### C BC ####[facility] Qcbikpkcdu1731 [place] [phone]. Emelina Navarro Monocytes/100 WBC (Bld) 6.5 % Normal 1.7-12.0 The [facility] Comment on above: Performed By: #### C BC ####[facility] Itrwvmrikw5552[address] [place], [place] [address]Dr. Emelina Navarro NEUT # 14.1 103/ul Critically high 1.4-6.5 The [facility] Comment on above: Performed By: #### C BC ####[facility] Nvrpeqtmut4050 [place] [phone]. Emelina Navarro Neutrophils/100 WBC (Bld) 88.0 % Critically high 43.0-75.0 The [facility] Comment on above: Performed By: #### C BC ####[facility] Rjiwhassij8554 [place] [phone]. Emelina Navarro Platelet mean volume (Bld) [Entitic vol] 9.9 fL Normal 9.5-13.5 The [facility] Comment on above: Performed By: #### C BC ####[facility] Qsfxithqce9858 [place] [phone]. Emelina Navarro PLT 185 103/ul Normal 150-450 The [facility] Comment on above: Performed By: #### C BC ####[facility] Aioimsgosy[address] [place], [place] [address]Dr. Emelina Navarro RBC 4.67 106/ul Critically low 4.70-6.10 [facility] Comment on above: Performed By: #### C BC ####[facility] Fkszluuofo9939 [place] [phone]. Awildanitza Ramon WBC 16.1 103/ul Critically high 4.0-11.0 The [facility] Comment on above: Performed By: #### C BC ####[facility] Tvylkqswad9622 [place] [phone]. Emelina Ramon LIVER PROFILEon 05-01-2022 Albumin/Globulin [Mass ratio] 0.7 {ratio} Normal [facility] Comment on above: Performed By: #### L IVER ####[facility] Fvxgdqqsfa4740 [place] [phone]. Awildanitza Ramon ALP [Catalytic activity/Vol] 71 U/L Normal 46-116 The [facility] Comment on above: Performed By: #### L IVER ####[facility] Hmowwhrgzl6224 [place] [phone]. Emelina Navarro ALT [Catalytic activity/Vol] 558 U/L Critically high 16-63 The [facility] Comment on above: Performed By: #### L IVER ####[facility] Ggzsjanluf4599 [place] [phone]. Awildanitza Ramon AST [Catalytic activity/Vol] 220 U/L Critically high 15-37 [facility] Comment on above: Performed By: #### L IVER ####[facility] Riybuoajiw2198 [place] [phone]. Emelina Navarro BILI, CONJUGATED 0.2 mg/dL Normal 0.0-0.2 The [facility] Comment on above: Performed By: #### L IVER ####[facility] Fygjzxaglh6556 [place] [phone]. Emelina Navarro Bilirubin [Mass/Vol] 0.5 mg/dL Normal 0.2-1.0 The [facility] Comment on above: Performed By: #### L IVER ####[facility] Fnlflircyq4033 [place] [phone]. Emelina Navarro Globulin (S) [Mass/Vol] 3.9 g/dL Normal [facility] Comment on above: Performed By: #### L IVER ####[facility] Aewrigdelm7018 [place] [address]Dr. Emelina Navarro Protein [Mass/Vol] 6.8 g/dL Normal 6.4-8.2 [facility] Comment on above: Performed By: #### L IVER ####[facility] Fxsdjlvgtc1328 [place] [address]Dr. Emelina Navarro POINT OF CARE GLUCOSEon 04-19 Glucose [Mass/Vol] 205 mg/dL Critically high 74-106 [facility] Comment on above: Performed By: #### P OCGLUC ####[facility] Qxvqncojyz602[address] [place], [place] [address]Dr. Emelina Navarro PROF 14(COMP METB)on 022 Albumin [Mass/Vol] 2.9 g/dL Critically low 3.4-5.0 [facility] Comment on above: Performed By: #### C MP ####[facility] Hfmxpvthpy539[address] [place], [place] [address]Dr. Emelina Navarro Performed By: #### L IVER ####[facility] Dyydvmfpsh4659[address] [place], [place] [address]Dr. Emelina Navarro Albumin/Globulin [Mass ratio] 0.8 {ratio} Normal [facility] Comment on above: Performed By: #### C MP ####[facility] Tthbiynfbd1862[address] [place], [place] [address]Dr. Emelina Navarro ALP [Catalytic activity/Vol] 70 U/L Normal 46-116 [facility] Comment on above: Performed By: #### C MP ####[facility] Kkolvmwzwr1693[address] [place], [place] [address]Dr. Emelina Navarro ALT [Catalytic activity/Vol] 552 U/L Critically high 16-63 [facility] Comment on above: Performed By: #### C MP ####[facility] Qjkpvljuhf7704 [place] [address]Dr. Emelina Navarro Anion gap [Moles/Vol] 14.2 mmol/L Normal [facility] Comment on above: Performed By: #### C MP ####[facility] Civwnbqxsb1737 [place] [phone]. Emelina Navarro AST [Catalytic activity/Vol] 214 U/L Critically high 15-37 The [facility] Comment on above: Performed By: #### C MP ####[facility] Sayafhwkak7494 [place] [phone]. Emelina Navarro Bilirubin [Mass/Vol] 0.6 mg/dL Normal 0.2-1.0 The [facility] Comment on above: Performed By: #### C MP ####[facility] Efitoithaf8660 [place] [phone]. Emelina Navarro Calcium [Mass/Vol] 7.9 mg/dL Critically low 8.5-10.1 Th [facility] Comment on above: Performed By: #### C MP ####[facility] Dgqcgmxnvj0916 [place] [phone]. Emelina Navarro Chloride [Moles/Vol] 103 mmol/L Normal 98-107 The [facility] Comment on above: Performed By: #### C MP ####[facility] Rhkbkrzpyl5885 [place] [phone]. Emelina Navarro CO2 [Moles/Vol] 25.0 mmol/L Normal 21.0-32.0 The [facility] Comment on above: Performed By: #### C MP ####[facility] Xfbdoljmcu3352 [place] [phone]. Emelina Navarro Creatinine [Mass/Vol] 1.58 mg/dL Critically high 0.70-1.30 [facility] Comment on above: Performed By: #### C MP ####[facility] Xuaqmebfmo9662 [place] [phone]. Emelina Navarro EGFR-AF GABONESE 53 mL/min/1.73m2 Critically low >=60 The [facility] Comment on above: Performed By: #### C MP ####[facility] Vxzmkrgwkz7795 [place] [phone]. Emelina Navarro EGFR-NON AF GABONESE 44 mL/min/1.73m2 Critically low >=60 The [facility] Comment on above: Performed By: #### C MP ####[facility] Poiwtrzmjb2774 [place] [phone]. Emelina Navarro Globulin (S) [Mass/Vol] 3.8 g/dL Normal [facility] Comment on above: Performed By: #### C MP ####[facility] Dxhoavjenf2815 [place] [address]Dr. Emelina Navarro Glucose [Mass/Vol] 267 mg/dL Critically high 74-106 [facility] Comment on above: Performed By: #### C MP ####[facility] Mzbbflqubz4774 [place] [address]Dr. Emelina Navarro Potassium [Moles/Vol] 3.2 mmol/L Critically low 3.5-5.1 [facility] Comment on above: Performed By: #### C MP ####[facility] Ctrwglozcp[address] [place], [place] [address]Dr. Emelina Navarro Protein [Mass/Vol] 6.7 g/dL Normal 6.4-8.2 [facility] Comment on above: Performed By: #### C MP ####[facility] Ghilbhkhgq0556[address] [place], [place] [address]Dr. Emelina Navarro Sodium [Moles/Vol] 139 mmol/L Normal 136-145 [facility] Comment on above: Performed By: #### C MP ####[facility] Erlehnnnvn7301[address] [place], [place] [address]Dr. Emelina Navarro Urea nitrogen [Mass/Vol] 43.0 mg/dL Critically high 7.0-18.0 [facility] Comment on above: Performed By: #### C MP ####[facility] Ewczcdojpz8870 [place] [address]Dr. Emelina Navarro Urea nitrogen/Creatinine [Mass ratio] 27.2 mg/mg Normal [facility] Comment on above: Performed By: #### C MP ####[facility] Jzbtuhqvor3542 [place] [address]Dr. mEelina Navarro PROTIMEon 05-01-2022 INR Coag (PPP) [Relative time] 2.57 {INR} Normal [facility] Comment on above: Performed By: #### P T ####[facility] Jqphhncypx6224 [place] [id number]. Emelina Navarro INR GUIDELINES SEE BELOW Normal [facility] Comment on above: Result Comment: WENDY RED INR: 2.0 - 3.0 CONDITIONS NOT LISTED BELOW 2.5 - 3.5 FOR PROSTHETIC HEART VALVE REPLACEMENT 2.5 - 3.5 RECURRENT THROMBOSIS Performed By: #### P T ####[facility] Fywxxzahlh[address] [place], [place] [address]Dr. Emelina Navarro PT Coag (PPP) [Time] 26.1 s Critically high 9.0-11.6 The [facility] Comment on above: Performed By: #### P T ####[facility] Epubougxro5724[address] [place], [place] [address]Dr. Emelina Navarro CBC AUTO DIFFon 04-30-2022 BASO # 0.0 103/ul Normal 0.0-0.1 [facility] Comment on above: Performed By: #### C BC ####[facility] Gjyxaoulur5[address] [place], [place] [address]Dr. Emelina Navarro Basophils/100 WBC (Bld) 0.1 % Critically low 0.2-2.0 [facility] Comment on above: Performed By: #### C BC ####[facility] Qczxkhccpi9137[address] [place], [place] [address]DrWesley Navarro EO # 0.0 103/ul Normal 0.0-0.7 [facility] Comment on above: Performed By: #### C BC ####[facility] Qjkekgbhiw70[address] [place], [place] [address]Dr. Emelina Navarro Eosinophils/100 WBC (Bld) 0.0 % Critically low 0.9-7.0 The [facility] Comment on above: Performed By: #### C BC ####[facility] Ffhehewash423[address] [place], [place] [address]Dr. Emelina Navarro Erythrocyte distribution width (RBC) [Ratio] 16.4 % Critically high 11.0-15.0 The [facility] Comment on above: Performed By: #### C BC ####[facility] Pjzrnsuwry855[address] [place], [place] [address]Dr. Emelina Navarro Hematocrit (Bld) [Volume fraction] 40.9 % Critically low 42.0-54.0 The [facility] Comment on above: Performed By: #### C BC ####[facility] Mfeuyxglyc2649 [place] [address]Dr. Emelina Ramon Hemoglobin (Bld) [Mass/Vol] 13.3 g/dL Critically low 14.0-18.0 The [facility] Comment on above: Performed By: #### C BC ####[facility] Ifzqeeabwt6032 [place] [address]Dr. Emelina Navarro IG # 0.11 10e3/ul Critically high 0.00-0.03 [facility] Comment on above: Performed By: #### C BC ####[facility] Vkxszvkohk7976 [place] [address]Dr. Emelina Navarro IG % 0.5 % Normal 0.0-0.5 [facility] Comment on above: Performed By: #### C BC ####[facility] Xabozexbfq4559 [place] [address]Dr. Emelina Navarro LYMPH # 0.8 103/ul Critically low 1.2-3.8 [facility] Comment on above: Performed By: #### C BC ####[facility] Prywcpxufc6921 [place] [address]Dr. Emelina Navarro Lymphocytes/100 WBC (Bld) 3.9 % Critically low 20.5-60.0 The [facility] Comment on above: Performed By: #### C BC ####[facility] Jziwlwpsfm6073 [place] [address]Dr. Emelina Navarro MANUAL DIFF REQ NO Normal [facility] Comment on above: Performed By: #### C BC ####[facility] Pytvshceno2336 [place] [address]Dr. Emelina Ramon MCH (RBC) [Entitic mass] 29.0 pg Normal 25.9-34.0 The [facility] Comment on above: Performed By: #### C BC ####[facility] Zbjdktipth3519 [place] [address]Dr. Emelina Navarro MCHC (RBC) [Mass/Vol] 32.5 g/dL Normal 29.9-35.2 The [facility] Comment on above: Performed By: #### C BC ####[facility] Gvfaptykvx6280 [place] [id number]. Emelina Navarro MCV (RBC) [Entitic vol] 89.1 fL Normal 80.0-94.0 The [facility] Comment on above: Performed By: #### C BC ####[facility] Nibmumgrhr7998 [place] [phone]. Emelina Navarro MONO # 0.9 103/ul Critically high 0.3-0.8 [facility] Comment on above: Performed By: #### C BC ####[facility] Wztcgecium0453 [place] [address]Dr. Emelina Ramon Monocytes/100 WBC (Bld) 4.2 % Normal 1.7-12.0 The [facility] Comment on above: Performed By: #### C BC ####[facility] Fvapcmrgrr9538 [place] [address]Dr. Emelina Navarro NEUT # 18.5 103/ul Critically high 1.4-6.5 The [facility] Comment on above: Performed By: #### C BC ####[facility] Loyqnvazww0459 [place] [id number]. Emelina Navarro Neutrophils/100 WBC (Bld) 91.3 % Critically high 43.0-75.0 The [facility] Comment on above: Performed By: #### C BC ####[facility] Wikojdzbeo5657 [place] [phone]. Emelina Navarro Platelet mean volume (Bld) [Entitic vol] 10.9 fL Normal 9.5-13.5 The [facility] Comment on above: Performed By: #### C BC ####[facility] Isavhzzpyr7040 [place] [phone]. Emelina Ramon PLT 162 103/ul Normal 150-450 The [facility] Comment on above: Performed By: #### C BC ####[facility] Jhobrhjcjs2855 [place] [address]Dr. Emelina Navarro RBC 4.59 106/ul Critically low 4.70-6.10 [facility] Comment on above: Performed By: #### C BC ####[facility] Qtevxgomrx6746 [place] [address]Dr. Emelina Navarro WBC 20.3 103/ul Critically high 4.0-11.0 [facility] Comment on above: Performed By: #### C BC ####[facility] Oilxtvdrzf4288[address] [place], [place] [address]Dr. Emelina Navarro PROF 14(COMP METB)on 022 Albumin [Mass/Vol] 2.8 g/dL Critically low 3.4-5.0 [facility] Comment on above: Performed By: #### C MP ####[facility] Fnzppuomjh458414 [address] [place], [place] [address]Dr. Emelina Navarro Albumin/Globulin [Mass ratio] 0.7 {ratio} Normal [facility] Comment on above: Performed By: #### C MP ####[facility] Hppqiumzpr474314 [address] [place], [place] [address]Dr. Emelina Navarro ALP [Catalytic activity/Vol] 65 U/L Normal 46-116 [facility] Comment on above: Performed By: #### C MP ####[facility] Slmvwfqzpj843414 [address] [place], [place] [address]Dr. Emelina Navarro ALT [Catalytic activity/Vol] 467 U/L Critically high 16-63 [facility] Comment on above: Performed By: #### C MP ####[facility] Pjeqcqjeru5566[address] [place], [place] [address]Dr. Emelina Navarro Anion gap [Moles/Vol] 15.3 mmol/L Normal [facility] Comment on above: Performed By: #### C MP ####[facility] Xxrqafavff327714 [address] [place], [place] [address]Dr. Emelina Navarro AST [Catalytic activity/Vol] 239 U/L Critically high 15-37 [facility] Comment on above: Performed By: #### C MP ####[facility] Kqqxmubgpg251914 [address] [place], [place] [address]Dr. Emelina Navarro Bilirubin [Mass/Vol] 0.7 mg/dL Normal 0.2-1.0 The [facility] Comment on above: Performed By: #### C MP ####[facility] Ocpnwysrrj855714 [address] [place], [place] [address]Dr. Emelina Navarro Calcium [Mass/Vol] 7.9 mg/dL Critically low 8.5-10.1 [facility] Comment on above: Performed By: #### C MP ####[facility] Btsdbjaanq887614 [address] [place], [place] [address]Dr. Emelina Navarro Chloride [Moles/Vol] 106 mmol/L Normal 98-107 The [facility] Comment on above: Performed By: #### C MP ####[facility] Kbmnfhrkgu414514 [address] [place], [place] [address]Dr. Emelina Navarro CO2 [Moles/Vol] 23.3 mmol/L Normal 21.0-32.0 The [facility] Comment on above: Performed By: #### C MP ####[facility] Hozvwktlmv7[address] [place], [place] [address]Dr. Emelina Navarro Creatinine [Mass/Vol] 1.71 mg/dL Critically high 0.70-1.30 [facility] Comment on above: Performed By: #### C MP ####[facility] Mnwanuhisc779014 [address] [place], [place] [address]Dr. Emelina Navarro EGFR-AF GABONESE 49 mL/min/1.73m2 Critically low >=60 The [facility] Comment on above: Performed By: #### C MP ####[facility] Gblqfcvnsi634[address] [place], [place] [address]Dr. Emelina Navarro EGFR-NON AF GABONESE 40 mL/min/1.73m2 Critically low >=60 The [facility] Comment on above: Performed By: #### C MP ####[facility] Kyrycajpfn7087[address] [place], [place] [address]Dr. Emelina Navarro Globulin (S) [Mass/Vol] 3.9 g/dL Normal The [facility] Comment on above: Performed By: #### C MP ####[facility] Uztcrbrtpg5051 [place] [address]Dr. Emelina Navarro Glucose [Mass/Vol] 233 mg/dL Critically high 74-106 [facility] Comment on above: Performed By: #### C MP ####[facility] Vlqpacmthh6578 [place] [address]Dr. Emelina Navarro Potassium [Moles/Vol] 3.6 mmol/L Normal 3.5-5.1 The [facility] Comment on above: Performed By: #### C MP ####[facility] Wljbfvtwzb8033 [place] [address]Dr. Emelina Navarro Protein [Mass/Vol] 6.7 g/dL Normal 6.4-8.2 [facility] Comment on above: Performed By: #### C MP ####[facility] Tfcdvulzgn280[address] [place], [place] [address]Dr. Emelina Navarro Sodium [Moles/Vol] 141 mmol/L Normal 136-145 [facility] Comment on above: Performed By: #### C MP ####[facility] Lvgggcoaba270114 [address] [place], [place] [address]Dr. Emelina Navarro Urea nitrogen [Mass/Vol] 46.0 mg/dL Critically high 7.0-18.0 The [facility] Comment on above: Performed By: #### C MP ####[facility] Ueqzkwbozo466014 [address] [place], [place] [address]Dr. Emelina Navarro Urea nitrogen/Creatinine [Mass ratio] 26.9 mg/mg Normal The [facility] Comment on above: Performed By: #### C MP ####[facility] Vdcfbsfnmt5175[address] [place], [place] [address]Dr. Emelina Navarro XR CHEST 2 Von 04-30-2022 XR CHEST 2 V Normal [facility] CBC AUTO DIFFon 04-29-2022 BASO # 0.0 103/ul Normal 0.0-0.1 The [facility] Comment on above: Performed By: #### C BC ####[facility] Uikgdijkpc1491 [place] [address]Dr. Emelina Navarro Basophils/100 WBC (Bld) 0.1 % Critically low 0.2-2.0 The [facility] Comment on above: Performed By: #### C BC ####[facility] Gdhxnxasyj3901 [place] [address]DrWesley Navarro EO # 0.0 103/ul Normal 0.0-0.7 [facility] Comment on above: Performed By: #### C BC ####[facility] Jwxikxhpxv3922 [place] [address]DrWesley Navarro Eosinophils/100 WBC (Bld) 0.0 % Critically low 0.9-7.0 [facility] Comment on above: Performed By: #### C BC ####[facility] Wodrpbfwdp5647[address] [place], [place] [address]Dr. Emelina Navarro Erythrocyte distribution width (RBC) [Ratio] 16.2 % Critically high 11.0-15.0 [facility] Comment on above: Performed By: #### C BC ####[facility] Bkxgbzyieu553814 [address] [place], [place] [address]DrWesley Navarro Hematocrit (Bld) [Volume fraction] 40.6 % Critically low 42.0-54.0 [facility] Comment on above: Performed By: #### C BC ####[facility] Ekpljekhre9094[address] [place], [place] [address]DrWesley Navarro Hemoglobin (Bld) [Mass/Vol] 13.2 g/dL Critically low 14.0-18.0 [facility] Comment on above: Performed By: #### C BC ####[facility] Cabfiiluxg669014 [address] [place], [place] [address]DrWesley Navarro IG # 0.11 10e3/ul Critically high 0.00-0.03 [facility] Comment on above: Performed By: #### C BC ####[facility] Pgjivpgiaw1457[address] [place], [place] [address]DrWesley Navarro IG % 0.6 % Critically high 0.0-0.5 [facility] Comment on above: Performed By: #### C BC ####[facility] Xszwqcpdfb3769[address] [place], [place] [address]DrWesley Navarro LYMPH # 1.1 103/ul Critically low 1.2-3.8 The [facility] Comment on above: Performed By: #### C BC ####[facility] Ffyagolmwl6056 [place] [address]DrWesley Navarro Lymphocytes/100 WBC (Bld) 5.6 % Critically low 20.5-60.0 [facility] Comment on above: Performed By: #### C BC ####[facility] Yffwktswij7000 [place] [address]DrWesley Navarro MANUAL DIFF REQ NO Normal [facility] Comment on above: Performed By: #### C BC ####[facility] Gygcbqkeoe2059 [place] [address]Dr. Emelina Navarro MCH (RBC) [Entitic mass] 29.1 pg Normal 25.9-34.0 The [facility] Comment on above: Performed By: #### C BC ####[facility] Nlhkbxiqxf6442[address] [place], [place] [address]Dr. Emelina Navarro MCHC (RBC) [Mass/Vol] 32.5 g/dL Normal 29.9-35.2 The [facility] Comment on above: Performed By: #### C BC ####[facility] Jwqgmwxhuk1998[address] [place], [place] [address]DrWesley Navarro MCV (RBC) [Entitic vol] 89.4 fL Normal 80.0-94.0 The [facility] Comment on above: Performed By: #### C BC ####[facility] Eohoqazuxc9744[address] [place], [place] [address]DrWesley Navarro MONO # 0.6 103/ul Normal 0.3-0.8 The [facility] Comment on above: Performed By: #### C BC ####[facility] Vlyzdenzrx182[address] [place], [place] [address]DrWesley Navarro Monocytes/100 WBC (Bld) 3.2 % Normal 1.7-12.0 The [facility] Comment on above: Performed By: #### C BC ####[facility] Bcfzzyxtbk9718[address] [place], [place] [address]DrWesley Navarro NEUT # 17.4 103/ul Critically high 1.4-6.5 The [facility] Comment on above: Performed By: #### C BC ####[facility] Rsphlyhkzy5526 [place] [address]Dr. Emelina Navarro Neutrophils/100 WBC (Bld) 90.5 % Critically high 43.0-75.0 The [facility] Comment on above: Performed By: #### C BC ####[facility] Dtnjknefdr2547 [place] [phone]. Emelina Navarro Platelet mean volume (Bld) [Entitic vol] 10.3 fL Normal 9.5-13.5 The [facility] Comment on above: Performed By: #### C BC ####[facility] Gakujqsoeg7125 [place] [phone]. Emelina Navarro PLT 175 103/ul Normal 150-450 [facility] Comment on above: Performed By: #### C BC ####[facility] Hllzpswgli8108 [place] [phone]. Emelina Navarro RBC 4.54 106/ul Critically low 4.70-6.10 [facility] Comment on above: Performed By: #### C BC ####[facility] Psplfqxhpr2957 [place] [phone]. Emelina Navarro WBC 19.2 103/ul Critically high 4.0-11.0 The [facility] Comment on above: Performed By: #### C BC ####[facility] Gbcdgfwdfy7096 [place] [phone]. Emelina Navarro Covid-19 PCR ([facility])on 04-19 SARS-CoV-2 (COVID-19) RNA RADHA+probe Ql (Unsp spec) Not detected Normal NOT DETECTED The [facility] Comment on above: Result Comment: When diagnostic testing is negative, the possibility of a false negative should be considered inthe context of a patient's recent exposures and the presence of clinical signs and symptomsconsistent with SARS-CoV-2.This test is not yet approved or cleared by the [place] FDA. When there are no FDA-approved or cleared tests available, and other criteria are met, FDA can make tests available under an emergency access mechanism called an Emergency Use Authorization (EUA). The EUA for this test is supported by the [employer] Staff Member of Health and Human Service's declaration that circumstances exist to justify the emergency use of in vitro diagnostics for the detection and/or diagnosis of the virus that causes COVID-19. This EUA will remain in effect for the duration of the COVID-19 declaration justifying emergency of IVDs, unless it is terminated or revoked by the FDA (after which the test may no longer be used). Performed By: #### C VDTBH ####[facility] Tyvfnuycri0538[address] [place], [place] [address]Dr. Emelina Navarro LIPASEon 04-29-2022 Lipase [Catalytic activity/Vol] 74.0 U/L Normal 73.0-393.0 [facility] Comment on above: Performed By: #### L IPA ####[facility] Hjkgppbssh038[address] [place], [place] [address]Dr. Emelina Navarro PROF 14(COMP METB)on 022 Albumin [Mass/Vol] 2.8 g/dL Critically low 3.4-5.0 [facility] Comment on above: Performed By: #### C MP ####[facility] Srrhvlwoyw5869[address] [place], [place] [address]Dr. Emelina Navarro Albumin/Globulin [Mass ratio] 0.7 {ratio} Normal [facility] Comment on above: Performed By: #### C MP ####[facility] Oyjgvxryvr7949[address] [place], [place] [address]Dr. Emelina Navarro ALP [Catalytic activity/Vol] 70 U/L Normal 46-116 [facility] Comment on above: Performed By: #### C MP ####[facility] Kwhuyfnrwv619[address] [place], [place] [address]Dr. Emelina Navarro ALT [Catalytic activity/Vol] 456 U/L Critically high 16-63 [facility] Comment on above: Performed By: #### C MP ####[facility] Kgjmayndye978[address] [place], [place] [address]Dr. Emelina Navarro Anion gap [Moles/Vol] 14.7 mmol/L Normal [facility] Comment on above: Performed By: #### C MP ####[facility] Tzlgvppzxx2673 [place] [phone]. Emelina Navarro AST [Catalytic activity/Vol] 388 U/L Critically high 15-37 [facility] Comment on above: Performed By: #### C MP ####[facility] Ykqpmoiiqm0611 [place] [phone]. Emelina Navarro Bilirubin [Mass/Vol] 1.2 mg/dL Critically high 0.2-1.0 [facility] Comment on above: Performed By: #### C MP ####[facility] Hwuydbryyj8197 [place] [address]Dr. Emelina Navarro Calcium [Mass/Vol] 7.8 mg/dL Critically low 8.5-10.1 Th [facility] Comment on above: Performed By: #### C MP ####[facility] Rnufkwmacq4289[address] [place], [place] [address]Dr. Emelina Navarro Chloride [Moles/Vol] 103 mmol/L Normal 98-107 [facility] Comment on above: Performed By: #### C MP ####[facility] Fzzokwqpxh0678[address] [place], [place] [address]Dr. Emelina Navarro CO2 [Moles/Vol] 20.8 mmol/L Critically low 21.0-32.0 [facility] Comment on above: Performed By: #### C MP ####[facility] Bttsuvvouf9992[address] [place], [place] [address]Dr. Emelina Navarro Creatinine [Mass/Vol] 1.79 mg/dL Critically high 0.70-1.30 [facility] Comment on above: Performed By: #### C MP ####[facility] Ihpumrbcyk1824[address] [place], [place] [address]Dr. Emelina Ramon EGFR-AF GABONESE 46 mL/min/1.73m2 Critically low >=60 The [facility] Comment on above: Performed By: #### C MP ####[facility] Iepceueevw8995[address] [place], [place] [address]Dr. Awildanitza Ramon EGFR-NON AF GABONESE 38 mL/min/1.73m2 Critically low >=60 [facility] Comment on above: Performed By: #### C MP ####[facility] Kawdvzzjzb6790 [place] [address]Dr. Emelina Ramon Globulin (S) [Mass/Vol] 3.9 g/dL Normal [facility] Comment on above: Performed By: #### C MP ####[facility] Hcrpnbfgax1005 [place] [phone]. Awildanitza Ramon Glucose [Mass/Vol] 313 mg/dL Critically high 74-106 T [facility] Comment on above: Performed By: #### C MP ####[facility] Zohzbupwvp8410 [place] [phone]. Emelina Navarro Potassium [Moles/Vol] 3.5 mmol/L Normal 3.5-5.1 [facility] Comment on above: Performed By: #### C MP ####[facility] Silxqifspl1055 [place] [address]Dr. Emelina Navarro Protein [Mass/Vol] 6.7 g/dL Normal 6.4-8.2 [facility] Comment on above: Performed By: #### C MP ####[facility] Ryakpamgzt6408 [place] [address]Dr. Emelina Navarro Sodium [Moles/Vol] 135 mmol/L Critically low 136-145 Th [facility] Comment on above: Performed By: #### C MP ####[facility] Arjhxmtgmz9618 [place] [address]Dr. Emelina Navarro Urea nitrogen [Mass/Vol] 41.0 mg/dL Critically high 7.0-18.0 [facility] Comment on above: Performed By: #### C MP ####[facility] Fhrcpmedza2438 [place] [address]Dr. Emelina Navarro Urea nitrogen/Creatinine [Mass ratio] 22.9 mg/mg Normal [facility] Comment on above: Performed By: #### C MP ####[facility] Niwmqppzyt8663 [place] [phone]. Emelina Navarro US SINGLE QUAD RT UPPERon US SINGLE QUAD RT UPPER Normal [facility] BLOOD GASES BTYon 04-28-2022 02 MODE NASAL CANNULA Normal [facility] Comment on above: Result Comment: rese rvoir cannula Performed By: #### A BG ####[facility] Uultoikpln7632 [place] [address]Dr. Emelina Navarro ALLENS TEST Positive Normal [facility] Comment on above: Performed By: #### A BG ####[facility] Xhwdbacbiz8434 [place] [phone]. Emelina Navarro Base excess Calc (Bld) [Moles/Vol] -6.6000 mmol/L Critically low -2.0-2.0 [facility] Comment on above: Performed By: #### A BG ####[facility] [facility] Xuvdovsltk[address] [place], [place] [address]Dr. Emelina Navarro BIPAP PRESSURE Normal The [facility] Comment on above: Performed By: #### A BG ####[facility] Zxqjvejblp[address] [place], [place] [address]Dr. Emelina Navarro CO2 [Moles/Vol] 34.0 mmol/L Critically high 23.0-28.0 [facility] Comment on above: Performed By: #### A BG ####[facility] Gcykakghpf7[address] [place], [place] [address]Dr. Emelina Navarro CPAP Normal The [facility] Comment on above: Performed By: #### A BG ####[facility] Woykwntynj414[address] [place], [place] [address]Dr. Emelina Navarro FIO2 Normal The [facility] Comment on above: Performed By: #### A BG ####[facility] Eicdivsdbs032[address] [place], [place] [address]Dr. Emelina Navarro HCO3 (Bld) [Moles/Vol] 20.5 mmol/L Critically low 22.0-26.0 The [facility] Comment on above: Performed By: #### A BG ####[facility] Oqxkoridsi85[address] [place], [place] [address]Dr. Emelina Navarro LPM 5 Normal The [facility] Comment on above: Performed By: #### A BG ####[facility] Aizbechowv5[address] [place] [address]Dr. Emelina Navarro MINUTE VOLUME Normal [facility] Comment on above: Performed By: #### A BG ####[facility] Ipaoylrann9[address] [place], [place] [address]Dr. Emelina Navarro Oxygen (Bld) [Partial pressure] 62.0 mm[Hg] Critically low 80.0-100.0 [facility] Comment on above: Performed By: #### A BG ####[facility] Vtywnosfgv1027[address] [place], [place] [address]Dr. Emelina Navarro Oxygen saturation in Blood 92.6 % Critically low 95.0-100.0 [facility] Comment on above: Performed By: #### A BG ####[facility] Bblogefanf3179[address] [place], [place] [address]Dr. Emelina Navarro PCO2 25.7 mmHg Critically low 35.0-45.0 [facility] Comment on above: Performed By: #### A BG ####[facility] Rbuusabrnj0152[address] [place], [place] [address]Dr. Emelina Navarro PEEP [facility] Comment on above: Performed By: #### A BG ####[facility] Zgqzklsefy5822[address] [place], [place] [address]Dr. Emelina Navarro pH (Bld) 7.443 [pH] Normal 7.350-7.45 0 [facility] Comment on above: Performed By: #### A BG ####[facility] Dyjnjwnqov487[address] [place], [place] [address]Dr. Emelina Navarro PIP [facility] Comment on above: Performed By: #### A BG ####[facility] Gzbhqcfaqg7[address] [place], [place] [address]Dr. Emelina Navarro PS [facility] Comment on above: Performed By: #### A BG ####[facility] Ivbgamybww46[address] [place], [place] [address]Dr. Emelina Navarro PUNCTURE SITE LR Normal The [facility] Comment on above: Performed By: #### A BG ####[facility] Pquaxfelyj4192[address] [place], [place] [address]Dr. Awildanitza Navarro RATE Normal The [facility] Comment on above: Performed By: #### A BG ####[facility] Qrgmgtmalc5638 [place] [address]Dr. Awildanitza Navarro VENT MODE Normal The [facility] Comment on above: Performed By: #### A BG ####[facility] Rggtijlbbj3463 [place] [address]Dr. Awildanitza Navarro VT Normal [facility] Comment on above: Performed By: #### A BG ####[facility] Cudtltxhan7723 [place] [address]Dr. Emelina Navarro BNPon 04-28-2022 Natriuretic peptide B (Bld) [Mass/Vol] 65187.0 pg/mL Critically high <=900.0 [facility] Comment on above: Performed By: #### C MP, BNP, CMADM ####[facility] Khgwhzehmr5982 [place] [address]Dr. Emelina Ramon CARDIAC IMTIAZ ADMITon 022 CK [Catalytic activity/Vol] 86 U/L Normal 39-308 [facility] Comment on above: Performed By: #### C MP, BNP, CMADM ####[facility] Tiqtwxhmgx7530 [place] [address]Dr. Emelina Ramon CK.MB [Mass/Vol] 1.41 ng/mL Normal <=3.60 [facility] Comment on above: Performed By: #### C MP, BNP, CMADM ####[facility] Odniwlvxui7837[address] [place], [place] [address]Dr. Emelina Navarro HSTROP 63.7 pg/mL Normal 4.0-76.1 The [facility] Comment on above: Result Comment: CUT- OFF POINTS HAVE BEEN ESTABLISHED BASED ON THE FOURTH UNIVERSAL DEFINITIONS OF MYOCARDIALINFARCTION. THE UPPER REFERENCE LIMIT (URL) OF TROPONIN, DEFINED THE 99TH PERCENTILE OFcTnI DISTRIBUTION IN A REFERENCE POPULATION, HAS BEEN CONFIRMED THE DECISION THRESHOLDFOR ND DIAGNOSIS. Performed By: #### C MP, BNP, CMADM ####[facility] Gutwdglxrv8757 [place] [address]Dr. Emelina Navarro URBANO 276 ng/mL Critically high 16-96 The [facility] Comment on above: Performed By: #### C MP, BNP, CMADM ####[facility] Apsuezdbrq0262 [place] [address]Dr. Emelina Navarro CBC AUTO DIFFon 04-28-2022 BASO # 0.0 103/ul Normal 0.0-0.1 The [facility] Comment on above: Performed By: #### C BC ####[facility] Arwpwehkrj363[address] [place], [place] [address]Dr. Emelina Navarro Basophils/100 WBC (Bld) 0.2 % Normal 0.2-2.0 The [facility] Comment on above: Performed By: #### C BC ####[facility] Szltmulfav4529[address] [place], [place] [address]Dr. Emelina Navarro EO # 0.0 103/ul Normal 0.0-0.7 The [facility] Comment on above: Performed By: #### C BC ####[facility] Zlfrcmkgyb4274[address] [place], [place] [address]Dr. Emelina Navarro Eosinophils/100 WBC (Bld) 0.1 % Critically low 0.9-7.0 The [facility] Comment on above: Performed By: #### C BC ####[facility] Zmhilfbgsz6188[address] [place], [place] [address]Dr. Emelina Navarro Erythrocyte distribution width (RBC) [Ratio] 16.5 % Critically high 11.0-15.0 The [facility] Comment on above: Performed By: #### C BC ####[facility] Qiyuyzxorb3394[address] [place], [place] [address]Dr. Emelina Navarro Hematocrit (Bld) [Volume fraction] 45.2 % Normal 42.0-54.0 The [facility] Comment on above: Performed By: #### C BC ####[facility] Clnhnvqxyu9348[address] [place], [place] [address]Dr. Emelina Navarro Hemoglobin (Bld) [Mass/Vol] 14.8 g/dL Normal 14.0-18.0 The [facility] Comment on above: Performed By: #### C BC ####[facility] Znyowfjwch8005 [place] [id number]. Emelina Navarro IG # 0.14 10e3/ul Critically high 0.00-0.03 The [facility] Comment on above: Performed By: #### C BC ####[facility] Ebxtnwryce2334 [place] [address]Dr. Emelina Navarro IG % 0.9 % Critically high 0.0-0.5 The [facility] Comment on above: Performed By: #### C BC ####[facility] Wbbbdodofh4351 [place] [address]Dr. Emelina Ramon LYMPH # 0.8 103/ul Critically low 1.2-3.8 The [facility] Comment on above: Performed By: #### C BC ####[facility] Isephaodkp2602 [place] [address]Dr. Awildanitza Navarro Lymphocytes/100 WBC (Bld) 5.1 % Critically low 20.5-60.0 The [facility] Comment on above: Performed By: #### C BC ####[facility] Tzpagjfhgh5792 [place] [address]Dr. Emelina Ramon MANUAL DIFF REQ NO Normal The [facility] Comment on above: Performed By: #### C BC ####[facility] Ibdmpifxsh8833 [place] [address]Dr. Emelina Navarro MCH (RBC) [Entitic mass] 29.3 pg Normal 25.9-34.0 The [facility] Comment on above: Performed By: #### C BC ####[facility] Ynnawqcfmi7762 [place] [address]Dr. Emelina Ramon MCHC (RBC) [Mass/Vol] 32.7 g/dL Normal 29.9-35.2 The [facility] Comment on above: Performed By: #### C BC ####[facility] Qrhfzhjcrc57[address] [place], [place] [address]Dr. Emelina Ramon MCV (RBC) [Entitic vol] 89.5 fL Normal 80.0-94.0 The [facility] Comment on above: Performed By: #### C BC ####[facility] Szxlgsjidx3834 [place] [id number]. Emelina Navarro MONO # 1.1 103/ul Critically high 0.3-0.8 The [facility] Comment on above: Performed By: #### C BC ####[facility] Xdkcveqjvy2112 [place] [phone]. Emelina Navarro Monocytes/100 WBC (Bld) 7.0 % Normal 1.7-12.0 The [facility] Comment on above: Performed By: #### C BC ####[facility] Cuvcpvrssy8922 [place] [phone]. Emelina Navarro NEUT # 13.3 103/ul Critically high 1.4-6.5 The [facility] Comment on above: Performed By: #### C BC ####[facility] Imlcbxjfpx7311 [place] [address]Dr. Emelina Navarro Neutrophils/100 WBC (Bld) 86.7 % Critically high 43.0-75.0 The [facility] Comment on above: Performed By: #### C BC ####[facility] Ewrjzdrllc8571 [place] [id number]. Emelina Navarro Platelet mean volume (Bld) [Entitic vol] 10.7 fL Normal 9.5-13.5 The [facility] Comment on above: Performed By: #### C BC ####[facility] Exfstrgrif1555 [place] [phone]. Emelina Navarro PLT 200 103/ul Normal 150-450 The [facility] Comment on above: Performed By: #### C BC ####[facility] Evuhudofez2551 [place] [phone]. Emelina Navarro RBC 5.05 106/ul Normal 4.70-6.10 The [facility] Comment on above: Performed By: #### C BC ####[facility] Ackiityoyb5559 [place] [phone]. Emelina Navarro WBC 15.4 103/ul Critically high 4.0-11.0 The [facility] Comment on above: Performed By: #### C BC ####[facility] Nxobmxwmfw8[address] [place], [place] [address]Dr. Emelina Navarro CULTURE BLOODon 04-28-2022 Microscopic examination of blood, culture Culture Observations: NO GROWTH AT 5 DAYS. Normal The [facility] Comment on above: Performed By: #### B LDCX2 ####[facility] Wabmhkcdfb7213 [place] [address]Dr. Emelina Navarro Microscopic examination of blood, culture Culture Observations: NO GROWTH AT 5 DAYS. Normal The [facility] Comment on above: Performed By: #### B LDCX1 ####[facility] Vcyjhkgviv2121 [place] [address]Dr. Emelina Navarro Covid-19 PCR (CVDTB)on 04-19 SARS-CoV-2 (COVID-19) RNA RADHA+probe Ql (Unsp spec) Not detected Normal NOT DETECTED The [facility] Comment on above: Result Comment: When diagnostic testing is negative, the possibility of a false negative should be considered inthe context of a patient's recent exposures and the presence of clinical signs and symptomsconsistent with SARS-CoV-2.This test is not yet approved or cleared by the [place] FDA. When there are no FDA-approved or cleared tests available, and other criteria are met, FDA can make tests available under an emergency access mechanism called an Emergency Use Authorization (EUA). The EUA for this test is supported by the [place] of Health and Human Service's declaration that circumstances exist to justify the emergency use of in vitro diagnostics for the detection and/or diagnosis of the virus that causes COVID-19. This EUA will remain in effect for the duration of the COVID-19 declaration justifying emergency of IVDs, unless it is terminated or revoked by the FDA (after which the test may no longer be used). Performed By: #### C VDTBH ####[facility] Xesmbwyfgy5675 [place] [address]Dr. Emelina Ramon DIGOXINon 04-28-2022 DIG 0.8 ng/mL Critically low 0.9-2.0 [facility] Comment on above: Performed By: #### D IG ####[facility] Evxlwvaioq485[address] [place], [place] [address]DrWesley Awildanitza Navarro ER URINE PROFILEon 2 Bilirubin Ql (U) Negative Normal NEGATIVE The [facility] Comment on above: Performed By: #### Hitesh POLK UMICRO ####[facility] Rdrzyweknt5619 [place] [address]Dr. Awildanitza Navarro Clarity (U) CLEAR Normal CLEAR [facility] Comment on above: Performed By: #### Hitesh POLK UMICRO ####[facility] Ikvdnuaxxu3319 [place] [address]Dr. Emelina Navarro Color (U) YELLOW Normal YELLOW [facility] Comment on above: Performed By: #### Hitesh POLK UMICRO ####[facility] Soyekzwguh[address] [place], [place] [address]Dr. Emelina Navarro ERUAHD A micrscopic examina tion will be performed if indicated. Normal The [facility] Comment on above: Performed By: #### Hitesh POLK UMICRO ####[facility] Ibeaiywndg5626[address] [place], [place] [address]Dr. Emelina Navarro Glucose Ql (U) 500 mg/dl Abnormal NEGATIVE The [facility] Comment on above: Performed By: #### Hitesh POLK UMICRO ####[facility] Pewummkxxf1317[address] [place], [place] [address]Dr. Emelina Navarro Hemoglobin Ql (U) MODERATE Abnormal NEGATIVE The [facility] Comment on above: Performed By: #### Hitesh POLK UMICRO ####[facility] Xwjodmnyrw75[address] [place], [place] [address]Dr. Emelina Navarro Ketones Ql (U) Negative Normal NEGATIVE The [facility] Comment on above: Performed By: #### Hitesh POLK UMICRO ####[facility] Dduihgwuaw236[address] [place], [place] [address]Dr. Emelina Navarro LEUKOCYTES Negative Normal NEGATIVE The [facility] Comment on above: Performed By: #### Hitesh POLK UMICRO ####[facility] Vdipwspgql9084[address] [place], [place] [address]Dr. Emelina Navarro Nitrite Ql (U) Negative Normal NEGATIVE The [facility] Comment on above: Performed By: #### LINDSAY BOLANDRO ####[facility] Ofxjssdber7085 [place] [address]Dr. Emelina Navarro pH (U) 5.0 [pH] Normal 5-9 The [facility] Comment on above: Performed By: #### LINDSAY BOLANDRO ####[facility] Opsiyztvmo27[address] [place], [place] [address]Dr. Emelina Navarro Protein (U) [Mass/Vol] 100 mg/dL Abnormal NEGATIVE/ TRACE The [facility] Comment on above: Performed By: #### LINDSAY BOLANDRO ####[facility] Euehrkqhig1404[address] [place], [place] [address]Dr. Emelina Navarro SPEC GRAVITY 1.025 Normal 1.005-<=1. 025 The [facility] Comment on above: Performed By: #### LINDSAY BOLANDRO ####[facility] Psgraughiz232[address] [place], [place] [address]Dr. Emelina Navarro UR MICRO IND INDICATED Normal The [facility] Comment on above: Performed By: #### LINDSAY BOLANDRO ####[facility] Qygyzmuwpc9905[address] [place], [place] [address]Dr. Emelina Navarro Urobilinogen Qn (U) 0.2 {Ashley'U}/dL Normal 0.2 - 1. 0 The [facility] Comment on above: Performed By: #### LINDSAY BOLANDRO ####[facility] Quaokqboxa4856[address] [place], [place] [address]Dr. Emelina Navarro LACTATE/LACTIC ACIDon 2021 Lactate [Moles/Vol] 5.1 mmol/L Critically high 0.4-1.9 The [facility] Comment on above: Performed By: #### L ACT ####[facility] Okjcefsapd045[address] [place], [place] [address]Dr. Emelina Navarro Lactate [Moles/Vol] 4.8 mmol/L Critically high 0.4-1.9 The [facility] Comment on above: Performed By: #### L ACT ####[facility] Brsgalilyj3232[address] [place], [place] [address]Dr. Emelina Navarro Lactate [Moles/Vol] 5.4 mmol/L Critically high 0.4-1.9 [facility] Comment on above: Performed By: #### L ACT ####[facility] Odipfrkgjh5860 [place] [address]Dr. Emelina Navarro POINT OF CARE GLUCOSEon 04-19 0 Glucose [Mass/Vol] 426 mg/dL Critically high 74-106 [facility] Comment on above: Performed By: #### P OCGLUC ####[facility] Txazqqnnwy0117 [place] [address]Dr. Emelina Navarro Glucose [Mass/Vol] 476 mg/dL Critically high 74-106 [facility] Comment on above: Performed By: #### P OCGLUC ####[facility] Nfqsdkqyqg34[address] [place], [place] [address]Dr. Emelina Navarro Glucose [Mass/Vol] 347 mg/dL Critically high 74-106 [facility] Comment on above: Performed By: #### P OCGLUC ####[facility] Adntuoinfx7359[address] [place], [place] [address]Dr. Emelina Navarro PROF 14(COMP METB)on 022 Albumin [Mass/Vol] 3.4 g/dL Normal 3.4-5.0 [facility] Comment on above: Performed By: #### C MP, BNP, CMADM ####[facility] Xdzfxhpxvq2141 [place] [address]Dr. Emelina Navarro Albumin/Globulin [Mass ratio] 0.8 {ratio} Normal [facility] Comment on above: Performed By: #### C MP, BNP, CMADM ####[facility] Qqyllwdqpl9189 [place] [address]Dr. Emelina Navarro ALP [Catalytic activity/Vol] 85 U/L Normal 46-116 [facility] Comment on above: Performed By: #### C MP, BNP, CMADM ####[facility] Xuehdcdefd1202 [place] [address]Dr. Emelina Navarro ALT [Catalytic activity/Vol] 246 U/L Critically high 16-63 [facility] Comment on above: Performed By: #### C MP, BNP, CMADM ####[facility] Mvxcmdaafp3376 [place] [address]Dr. Emelina Navarro Anion gap [Moles/Vol] 20.7 mmol/L Normal Th e [facility] Comment on above: Performed By: #### C MP, BNP, CMADM ####[facility] Wofiruwbjg9965 [place] [address]Dr. Emelina Navarro AST [Catalytic activity/Vol] 299 U/L Critically high 15-37 [facility] Comment on above: Performed By: #### C MP, BNP, CMADM ####[facility] Mfsxxelewr9130 [place] [address]Dr. Emelina Navarro Bilirubin [Mass/Vol] 2.7 mg/dL Critically high 0.2-1.0 [facility] Comment on above: Performed By: #### C MP, BNP, CMADM ####[facility] Qykozmdapk9[address] [place], [place] [address]Dr. Emelina Navarro Calcium [Mass/Vol] 8.5 mg/dL Normal 8.5-10.1 [facility] Comment on above: Performed By: #### C MP, BNP, CMADM ####[facility] Phvvutmpkl4457[address] [place], [place] [address]Dr. Emelina Navarro Chloride [Moles/Vol] 96 mmol/L Critically low 98-107 [facility] Comment on above: Performed By: #### C MP, BNP, CMADM ####[facility] Mzczeucjzg00[address] [place], [place] [address]Dr. Emelina Navarro CO2 [Moles/Vol] 19.3 mmol/L Critically low 21.0-32.0 The [facility] Comment on above: Performed By: #### C MP, BNP, CMADM ####[facility] Ftaxmmlbfs9028[address] [place], [place] [address]Dr. Emelina Navarro Creatinine [Mass/Vol] 2.46 mg/dL Critically high 0.70-1.30 [facility] Comment on above: Performed By: #### C MP, BNP, CMADM ####[facility] Bzqrckucfx[address] [place], [place] [address]Dr. Emelina Navarro EGFR-AF GABONESE 32 mL/min/1.73m2 Critically low >=60 [facility] Comment on above: Performed By: #### C MP, BNP, CMADM ####[facility] Icjgwsnnha4208 [place] [address]Dr. Emelina Navarro EGFR-NON AF GABONESE 26 mL/min/1.73m2 Critically low >=60 [facility] Comment on above: Performed By: #### C MP, BNP, CMADM ####[facility] Ajkkreitdu0684 [place] [address]Dr. Emelina Ramon Globulin (S) [Mass/Vol] 4.4 g/dL Normal [facility] Comment on above: Performed By: #### C MP, BNP, CMADM ####[facility] Zutiiiecuz3560 [place] [address]Dr. Awildanitza Ramon Glucose [Mass/Vol] 359 mg/dL Critically high 74-106 [facility] Comment on above: Performed By: #### C MP, BNP, CMADM ####[facility] Mutocmtzeu7153 [place] [address]Dr. Emelina Navarro Potassium [Moles/Vol] 7.0 mmol/L Critically high 3.5-5.1 [facility] Comment on above: Performed By: #### C MP, BNP, CMADM ####[facility] Fglssgdtlt4874 [place] [address]Dr. Emelina Navarro Protein [Mass/Vol] 7.8 g/dL Normal 6.4-8.2 [facility] Comment on above: Performed By: #### C MP, BNP, CMADM ####[facility] Whdkpbxbmp3283 [place] [address]Dr. Emelina Navarro Sodium [Moles/Vol] 129 mmol/L Critically low 136-145 [facility] Comment on above: Performed By: #### C MP, BNP, CMADM ####[facility] Satoibyvga7519 [place] [address]Dr. Emelina Navarro Urea nitrogen [Mass/Vol] 37.0 mg/dL Critically high 7.0-18.0 [facility] Comment on above: Performed By: #### C MP, BNP, CMADM ####[facility] Vneqdbfvqr110[address] [place], [place] [address]Dr. Emelina Navarro Urea nitrogen/Creatinine [Mass ratio] 15.0 mg/mg Normal [facility] Comment on above: Performed By: #### C MP, BNP, CMADM ####[facility] Dpffbmypwp[address] [place], [place] [address]Dr. Emelina Navarro PROF CHEM 8 (BAS METB)on Anion gap [Moles/Vol] 19.2 mmol/L Normal [facility] Comment on above: Performed By: #### B MP ####[facility] Spgjjvlvsa[address] [place], [place] [address]Dr. Emelina Navarro Calcium [Mass/Vol] 7.7 mg/dL Critically low 8.5-10.1 [facility] Comment on above: Performed By: #### B MP ####[facility] Snudoqhfxl6[address] [place], [place] [address]Dr. Emelina Navarro Chloride [Moles/Vol] 97 mmol/L Critically low 98-107 [facility] Comment on above: Performed By: #### B MP ####[facility] Ysdwcskkhz[address] [place], [place] [address]Dr. Emelina Navarro CO2 [Moles/Vol] 20.5 mmol/L Critically low 21.0-32.0 [facility] Comment on above: Performed By: #### B MP ####[facility] Ccimuyowfs[address] [place], [place] [address]Dr. Emelina Navarro Creatinine [Mass/Vol] 2.18 mg/dL Critically high 0.70-1.30 [facility] Comment on above: Performed By: #### B MP ####[facility] Uvsokgjokl[address] [place], [place] [address]Dr. Emelina Navarro EGFR-AF GABONESE 37 mL/min/1.73m2 Critically low >=60 [facility] Comment on above: Performed By: #### B MP ####[facility] [address]lufgb[address] [place] [address]Dr. Emelina Navarro EGFR-NON AF GABONESE 30 mL/min/1.73m2 Critically low >=60 [facility] Comment on above: Performed By: #### B MP ####[facility] Orhyisrngw6[address] [place], [place] [address]Dr. Emelina Navarro Glucose [Mass/Vol] 434 mg/dL Critically high 74-106 [facility] Comment on above: Performed By: #### B MP ####[facility] Szzzlwnpkm684[address] [place], [place] [address]Dr. Emelina Navarro Potassium [Moles/Vol] 4.7 mmol/L Normal 3.5-5.1 [facility] Comment on above: Performed By: #### B MP ####[facility] Iipnhvhfrt45[address] [place], [place] [address]Dr. Emelina Navarro Sodium [Moles/Vol] 132 mmol/L Critically low 136-145 [facility] Comment on above: Performed By: #### B MP ####[facility] Lgpkpwbtxd0989[address] [place], [place] [address]Dr. Emelina Navarro Urea nitrogen [Mass/Vol] 37.0 mg/dL Critically high 7.0-18.0 [facility] Comment on above: Performed By: #### B MP ####[facility] Mxhrxtvcef55[address] [place], [place] [address]Dr. Emelina Navarro Urea nitrogen/Creatinine [Mass ratio] 17.0 mg/mg Normal The [facility] Comment on above: Performed By: #### B MP ####[facility] Nzjysrzgzb92[address] [place], [place] [address]Dr. Emelina Navarro PROTIMEon 04-28-2022 INR Coag (PPP) [Relative time] 1.91 {INR} Normal [facility] Comment on above: Performed By: #### P TT, PT ####[facility] Gwrattmmii33[address] [place], [place] [address]Dr. Emelina Navarro INR GUIDELINES SEE BELOW Normal The [facility] Comment on above: Result Comment: WENDY RED INR: 2.0 - 3.0 CONDITIONS NOT LISTED BELOW 2.5 - 3.5 FOR PROSTHETIC HEART VALVE REPLACEMENT 2.5 - 3.5 RECURRENT THROMBOSIS Performed By: #### P TT, PT ####[facility] Aclhkbrvpq3298[address] [place], [place] [address]Dr. Awildanitza Ramon PT Coag (PPP) [Time] 19.8 s Critically high 9.0-11.6 The [facility] Comment on above: Performed By: #### P TT, PT ####[facility] Mofetiawrg[address] [place], [place] [address]Dr. Emelina Navarro PTTon 04-28-2022 aPTT Coag (Bld) [Time] 33.0 s Normal 22.3-36.2 The [facility] Comment on above: Performed By: #### P TT, PT ####[facility] Ehzmghnhhw7677[address] [place], [place] [address]Dr. Emelina Navarro RESPIRATORY PANEL PLUSon Adenovirus Not detected Normal NOT DETECTED The [facility] Comment on above: Performed By: #### R SPLUS ####[facility] Wqksadkufr6782[address] [place], [place] [address]Dr. Emelina Navarro B. Parapertusis Not detected Normal NOT DETECTED The [facility] Comment on above: Performed By: #### R SPLUS ####[facility] Druagcnbhy3509[address] [place], [place] [address]Dr. Emelina Navarro B. Pertussis Not detected Normal NOT DETECTED The [facility] Comment on above: Performed By: #### R SPLUS ####[facility] Xgxdcpiexq625[address] [place], [place] [address]Dr. Emelina Navarro Chlamydia Pneumoniae Not detected Normal NOT DETECTED The [facility] Comment on above: Performed By: #### R SPLUS ####[facility] Ygkjjdiwcq2446[address] [place], [place] [address]Dr. Emelina Navarro Coronavirus 229E Not detected Normal NOT DETECTED The [facility] Comment on above: Performed By: #### R SPLUS ####[facility] Dddjfhkqjh360[address] [place], [place] [address]Dr. Emelina Navarro Coronavirus HKU1 Not detected Normal NOT DETECTED The [facility] Comment on above: Performed By: #### R SPLUS ####[facility] Zkewuatksd52[address] [place] [address]Dr. Emelina [facility] Coronavirus NL63 Not detected Normal NOT DETECTED The [facility] Comment on above: Performed By: #### R SPLUS ####[facility] Vvwtiyomwh2297[address] [place], [place] [address]Dr. Emelina [facility] Coronavirus OC43 Not detected Normal NOT DETECTED The [facility] Comment on above: Performed By: #### R SPLUS ####[facility] Aoebzmvpan2404[address] [place], [place] [address]Dr. Emelina Navarro Influenza A H1 2009 Not detected Normal NOT DETECTED The [facility] Comment on above: Performed By: #### R SPLUS ####[facility] Zxewecdvig7009[address] [place], [place] [address]Dr. Emelina Navarro Influenza A H3 Not detected Normal NOT DETECTED The [facility] Comment on above: Performed By: #### R SPLUS ####[facility] Lquwkctwzp439[address] [place], [place] [address]Dr. Yinitza Navarro Influenza B Not detected Normal NOT DETECTED The [facility] Comment on above: Performed By: #### R SPLUS ####[facility] Dnmhhyundi7565[address] [place], [place] [address]Dr. Emelina [facility] Metapneumovirus Not detected Normal NOT DETECTED The [facility] Comment on above: Performed By: #### R SPLUS ####[facility] Gznzndgyeo3577[address] [place], [place] [address]Dr. Emelina Navarro Mycoplas. Pneumoniae Not detected Normal NOT DETECTED The [facility] Comment on above: Performed By: #### R SPLUS ####[facility] Vvutmmvyoh2472[address] [place], [place] [address]Dr. Yinitza Navarro Parainfluenza 1 Not detected Normal NOT DETECTED The [facility] Comment on above: Performed By: #### R SPLUS ####[facility] Nytiulqdcv1822[address] [place], [place] [address]Dr. Yinitza Navarro Parainfluenza 2 Not detected Normal NOT DETECTED The [facility] Comment on above: Performed By: #### R SPLUS ####[facility] Ubwpkblfdb3364[address] [place], [place] [address]Dr. Awildanitza Navarro Parainfluenza 3 Detected Abnormal NOT DETECTED The [facility] Comment on above: Performed By: #### R SPLUS ####[facility] Dsjtoxznke798[address] [place], [place] [address]Dr. Emelina Navarro Parainfluenza 4 Not detected Normal NOT DETECTED The [facility] Comment on above: Performed By: #### R SPLUS ####[facility] Heikrxhlsl4949[address] [place], [place] [address]Dr. Emelina Navarro Rhino/Enterovirus Not detected Normal NOT DETECTED The [facility] Comment on above: Performed By: #### R SPLUS ####[facility] Ulbmxnqket0708[address] [place], [place] [address]Dr. Emelina Navarro RP2 Header 1 RESPIRATORY PANEL: VIRUSES Normal The [facility] Comment on above: Performed By: #### R SPLUS ####[facility] Rfgmjkyste6997[address] [place], [place] [address]Dr. Emelina Navarro RP2 Header 2 RESPIRATORY PANEL: BACTERIA Normal The [facility] Comment on above: Performed By: #### R SPLUS ####[facility] Amxrfbptsx659[address] [place], [place] [address]Dr. Emelina Navarro RSV Not detected Normal NOT DETECTED The [facility] Comment on above: Performed By: #### R SPLUS ####[facility] Xvgyxgtlrv7617[address] [place], [place] [address]Dr. Emelina Navarro SARS-CoV-2 (COVID-19) RNA RADHA+probe Ql (Unsp spec) Not detected Normal NOT DETECTED The [facility] Comment on above: Performed By: #### R SPLUS ####[facility] Oyiwvbjhvw24[address] [place], [place] [address]Dr. Emelina Navarro URINE MICROSCOPIC ONLYon BACTERIA NONE SEEN Normal NONE SEEN The [facility] Comment on above: Performed By: #### E PATRIZIA POLK ####[facility] Ttkctevkxn[address] [place], [place] [address]Dr. Emelina Navarro Bacteria identified Cx Nom (U) NOT INDICATED Normal The [facility] Comment on above: Performed By: #### E LIBERTYR, UMICRO ####[facility] [address]zc[address] [place] [address]Dr. Emelina Navarro CAST SEEN Abnormal NONE SEEN The [facility] Comment on above: Performed By: #### Hitesh POLK UMICRO ####[facility] Qdwnlcajjt2184 [place] [address]Dr. Emelina Navarro Crystals LM Nom (Urine sed) NONE SEEN Normal NONE SEEN The [facility] Comment on above: Performed By: #### Hitesh POLK UMICRO ####[facility] B[address]qsaix[address] [place] [address]Dr. Emelina Navarro Epithelial cells LM Ql (Urine sed) FEW Abnormal NONE SEEN /RARE The [facility] Comment on above: Performed By: #### Hitesh POLK UMICRO ####[facility] Rxhuyoluzx[address]39 [place] [address]Dr. Emelina Navarro HYALINE CAST MANY Normal The [facility] Comment on above: Performed By: #### LINDSAY BOLANDRO ####[facility] Ulvoeakwxd[address] [place], [place] [address]Dr. Emelina Navarro MUCOUS NONE SEEN Normal NONE SEEN The [facility] Comment on above: Performed By: #### RAMANDEEP BOLANDICRO ####[facility] [address]rwip[address] [place] [address]Dr. Emelina Navarro RBC 0-2 Normal 0-2 The [facility] Comment on above: Performed By: #### LINDSAY BOLANDRO ####[facility] [address]lmde[address] [place] [address]Dr. Emelina Navarro WBC 0-2 Abnormal NONE SEEN The [facility] Comment on above: Performed By: #### Hitesh POLK UMICRO ####[facility] Zdnleldtpv4[address] [place], [place] [address]Dr. Emelina Navarro XR CHEST 1 Von 04-28-2022 XR CHEST 1 V Normal The [facility] Albumin [Mass/volume] in Ser um or PlasmaOrdered By: Ethan Cummings on 04-10-2022 Albumin [Mass/Vol] 3.8 g/dL 2.9-4.4 [facility] IgA [Mass/volume] in Serum o r PlasmaOrdered By: Ethan Cummings on 04-10-2022 IgA [Mass/Vol] 607 mg/dL 61-437 [facility] IgG [Mass/volume] in Serum o r PlasmaOrdered By: Ethan Cummings on 04-10-2022 IgG [Mass/Vol] 1207 mg/dL 603-1613 [facility] IgM [Mass/volume] in Serum o r PlasmaOrdered By: Ethan Cummings on 04-10-2022 IgM [Mass/Vol] 94 mg/dL 20-172 [facility] Comment on above: Performed at: [employer] [place] [address] [id number] Director: Alexis Winslow PhD, Phone: [phone] Immunoglobulin light chains. kappa.free [Mass/volume] in SerumOrdered By: Ethan Cummings on 04-10-2022 Immunoglobulin light chains.kappa.free (S) [Mass/Vol] 58.6 mg/L 3.3-19.4 [facility] Immunoglobulin light chains. kappa.free/Immunoglobulin light chains.lambda.free [MassOrdered By: Ethan Cummings on 04-10-2022 Immunoglobulin light chains.kappa.free/Imm unoglobulin light chains.lambda.free (S) [Mass ratio] 1.42 0.26-1.65 [facility] Comment on above: Performed at: [employer] [id number] Director: Alexis Winslow PhD, Phone: [phone] Immunoglobulin light chains. lambda.free [Mass/volume] in Serum or PlasmaOrdered By: Ethan Cummings on 04-10-2022 Immunoglobulin light chains.lambda.free [Mass/Vol] 41.2 mg/L 5.7-26.3 [facility] - Hematology and Cell countsOrdered By: Ethan Cummings on 04-10-2022 Nucleated RBC/100 WBC (Bld) [Ratio] 0.0 % 0-0.5 [facility] No Panel InformationOrdered By: Ethan Cummings on 04-10-2022 BCR/abl See comment [facility] Comment on above: See report. Scanned copy available in EMR. CBC Comment See comment [facility] Comment on above: Slide referred to raquel belcher for review Platelet Estimate Normal Normal [facility] Platelet Morphology Comment Normal Normal [facility] Protein Electrophoresis M-Brenden Not observed g/dL Not Observed [facility] Protein Electrophoresis Note See comment . [facility] Comment on above: Protein electrophore sis scan will follow via computer,mail, or rose grading supervisor delivery.Performed at: [facility] [id number] Director: Alexis Winslow PhD, Phone: [phone] Serum Immunofixation See comment . [facility] Comment on above: No monoclonality det ected. Protein [Mass/volume] in Ser um or PlasmaOrdered By: Ethan Cummings on 04-10-2022 Protein [Mass/Vol] 7.4 g/dL 6.0-8.5 [facility] RBC morphologyOrdered By: [place] Cummings on 04-10-2022 RBC morphology finding Nom (Bld) Normal [facility] Serum globulin measurement ( mass/volume)Ordered By: Ethan Cummings on 04-10-2022 Globulin (S) [Mass/Vol] 3.6 g/dL 2.2-3.9 [facility] Serum or plasma albumin/glob ulin mass ratioOrdered By: Ethan Cummings on 04-10-2022 Albumin/Globulin [Mass ratio] 1.1 {ratio} 0.7-1.7 [facility] Serum or plasma alpha 1 glob ulin measurement by electrophoresis (mass/volume)Ordered By: Ethan Cummings on 04-10-2022 Alpha 1 globulin Elph [Mass/Vol] 0.2 g/dL 0.0-0.4 [facility] Serum or plasma alpha 2 glob ulin measurement by electrophoresis (mass/volume)Ordered By: Ethan Cummings on 04-10-2022 Alpha 2 globulin Elph [Mass/Vol] 0.9 g/dL 0.4-1.0 [facility] Serum or plasma beta globuli n measurement by electrophoresis (mass/volume)Ordered By: Ethan Cummings on 04-10-2022 Beta globulin Elph [Mass/Vol] 1.2 g/dL 0.7-1.3 [facility] Serum or plasma gamma globul in measurement by electrophoresis (mass/volume)Ordered By: Ethan Cummings on 04-10-2022 Gamma globulin Elph [Mass/Vol] 1.3 g/dL 0.4-1.8 [facility] Serum or plasma methylmalona te measurement (moles/volume)Ordered By: Ethan Cummings on 04-10-2022 Methylmalonate [Moles/Vol] 668 nmol/L 0-378 [facility] Comment on above: This test was develo ped and its performance characteristicsdetermined by [employer]. It has not been cleared orapproved by the Food and Drug Administration.Performed at: [address] [id number] Director: Natalia Vergara MD, Phone: [phone] XR foot LT min 3V*on 022 XR foot LT min 3V* [facility] [employer] Other XR foot LT min 3V* [facility] [employer] Other XR foot LT min 3V* [address] [place] [address] [employer] Other XR foot LT min 3V* [place] [address] [place] [employer] Other XR foot LT min 3V* XRay Report [facility] [employer] Other XR foot LT min 3V* Signed [facility] Other XR foot LT min 3V* Patient: Adwoa Porter MR#: [id number] [place] [employer] Other XR foot LT min 3V* 7 [facility] Other XR foot LT min 3V* : 1955 Acct:[id number] [place] [employer] Other XR foot LT min 3V* Age/Sex: 66 / M ADM Date: 02/19/22 [facility] Other XR foot LT min 3V* Loc: XDUCLY Room: Ty pe: REG CLI [facility] Other XR foot LT min 3V* Attending Dr: Ruthie EUCEDA [facility] Other XR foot LT min 3V* Ordering Provider: KINSEY Jiménez [facility] Other XR foot LT min 3V* Date of Service: 02/19/22 [facility] Other XR foot LT min 3V* [id number]) XR/XR foot LT min 3V*: Left foot pain [facility] Other XR foot LT min 3V* Copies to: KINSEY Mancia [facility] Other XR foot LT min 3V* LEFT FOOT - 3 views [facility] Other XR foot LT min 3V* CLINICAL HISTORY: Le ft foot pain. [facility] Other XR foot LT min 3V* COMPARISON: Left tessie t series 02/09/2020 [facility] Other XR foot LT min 3V* FINDINGS: [facility] Other XR foot LT min 3V* Soft tissue swelling is noted. Since the prior study, as been interval partial amputation of the [facility] Other XR foot LT min 3V* first digit. 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 Questionable [facility] Other XR foot LT min 3V* subluxation/dislocat ion involving the PIP joint of the second digit. No definite plain film [facility] Other XR foot LT min 3V* evidence of osteomyelitis. [facility] Other XR foot LT min 3V* X R/XR foot LT min 3V* [facility] Other XR foot LT min 3V* IMPRESSION: [facility] Other XR foot LT min 3V* QUESTIONABLE SUBLUXATION/DISLOCATION INVOLVING THE PIP JOINT OF THE SECOND DIGIT. SOFT TISSUE [facility] Other XR foot LT min 3V* SWELLING. [facility] Other XR foot LT min 3V* Impression dictated by: Brennan Salgado Jr., D.O.02/19/2022 11:52 AM [facility] Other XR foot LT min 3V* Dictation Location: [address] [employer] Other XR foot LT min 3V* Transcribed By: PWS 02/19/22 1152 [facility] Other XR foot LT min 3V* Dictated By: Brennan Salgado Jr, DO 02/19/22 1148 [facility] Other XR foot LT min 3V* Signed By: [facility] Other XR foot LT min 3V* 02/19/[address] [place] [address] [employer] Other Glucose - FINGER STICKon Glucose [Mass/Vol] 166 mg/dL [place] [employer] Other A1C HEMOGLOBINon 11-16-2021 HbA1c (Bld) [Mass fraction] 10.7 % [facility] Other Glucose - FINGER STICKon Glucose [Mass/Vol] 205 mg/dL [facility] Other HbA1c (Bld) [Mass fraction]o n 11-16-2021 A1C HEMOGLOBIN [employer] Other Glucose - FINGER STICKon 11- 17-2021 Glucose [Mass/Vol] 158 mg/dL [facility] Other BASIC METABOLIC PANELon 05-3 Calcium [Mass/Vol] 9.9 mg/dL Normal 8.6-10.3 [facility] Comment on above: Order Comment: No: D o not add to previous draw Performed By: #### 9 9909, 95673, 37030, 54065 #### [facility] [address] [place] [address], [place] Chloride [Moles/Vol] 93 mmol/L Low 98-107 [facility] Comment on above: Order Comment: No: D o not add to previous draw Performed By: #### 9 9909, 78930, 47798, 65783 #### [facility] [address] [place] [address], [place] CO2 [Moles/Vol] 32 mmol/L High 21-31 [facility] Comment on above: Order Comment: No: D o not add to previous draw Performed By: #### 9 9909, 05060, 97743, 27682 #### [facility] [address] [place] [address], [place] Creatinine [Mass/Vol] 1.89 mg/dL High 0.70-1.30 [facility] Comment on above: Order Comment: No: D o not add to previous draw Performed By: #### 9 9909, 56635, 44696, 36393 #### [facility] [address] [place] [address], [place] eGFR- 43 ml/min/1.73sq m Abnormal >60 [facility] Comment on above: Order Comment: No: D o not add to previous draw Performed By: #### 9 9909, 74739, 39364, 32395 #### [facility] [address] [place] [address], [place] eGFR- non- 36 ml/min/1.73sq m Abnormal >60 [facility] Comment on above: Order Comment: No: D o not add to previous draw Performed By: #### 9 9909, 61053, 46354, 32163 #### [facility] [address] [place] [address], [place] Glucose [Mass/Vol] 217 mg/dL High 70-100 [facility] Comment on above: Order Comment: No: D o not add to previous draw Performed By: #### 9 9909, 36034, 30915, 41992 #### [facility] [address] [place] [address], [place] Potassium [Moles/Vol] 4.2 mmol/L Normal 3.5-5.1 [facility] Comment on above: Order Comment: No: D o not add to previous draw Performed By: #### 9 9909, 57422, 97575, 75592 #### [facility] [address] [place] [address], [place] Sodium [Moles/Vol] 135 mmol/L Low 136-145 [facility] Comment on above: Order Comment: No: D o not add to previous draw Performed By: #### 9 9909, 87842, 33373, 92362 #### [facility] [address] [place] [address], [place] Urea nitrogen [Mass/Vol] 53 mg/dL High 7-25 [facility] Comment on above: Order Comment: No: D o not add to previous draw Performed By: #### 9 9909, 51401, 28535, 96524 #### [facility] [address] [place] [address], [place] POC GLUCOSE LABon 04-17-2021 Glucose [Mass/Vol] 274 mg/dL High 70-100 [facility] Comment on above: Performed By: #### 8 5499 #### [facility] [address] [place] [address], [place] PROTHROMBIN TIMEon INR Coag (PPP) [Relative time] 1.76 {INR} High 0.91-1.16 [facility] Comment on above: Order Comment: No: D o not add to previous draw Result Comment: [facility] P RECOMMENDED INR FOR WARFARIN THERAPY -------- ------- CONDITION INR PROPHYLAXIS OF VENOUS THROMBOSIS 2-3 (HIGH-RISK SURGERY) TREATMENT OF VENOUS THROMBOSIS 2-3 TREATMENT OF PULMONARY EMBOLISM 2-3 PREVENTION OF SYSTEMIC EMBOLISM: 2-3 ACUTE MYOCARDIAL INFARCTION TISSUE HEART VALVES VALVULAR HEART DISEASE ATRIAL FIBRILLATION RECURRENT SYSTEMIC EMBOLISM MECHANICAL HEART VALVE 2.5-3.5 FROM: ORAL ANTICOAGULANTS. MECHANISM OF ACTION, CLINICAL EFFECTIVENESS, AND OPTIMAL THERAPEUTIC RANGE. CHEST 1995;108:231S-246S. Performed By: #### 3 5200 #### [facility] [address] [place] [address], [facility] PT Coag (PPP) [Time] 20.6 s High 12.3-14.8 [facility] Comment on above: Order Comment: No: D o not add to previous draw Result Comment: ALL RESULTS MUST BE INTERPRETED WITH RESPECT TO BLOOD DRAWING ARTIFACT OR DILUTION ERROR OF ANTICOAGULANT AT THE TIME OF SAMPLING. Performed By: #### 3 5200 #### [facility] [address] [place] [address], [place] INR Coag (PPP) [Relative time] 1.64 {INR} High 0.91-1.16 [facility] Comment on above: Order Comment: No: D o not add to previous draw Result Comment: [facility] P RECOMMENDED INR FOR WARFARIN THERAPY -------- ------- CONDITION INR PROPHYLAXIS OF VENOUS THROMBOSIS 2-3 (HIGH-RISK SURGERY) TREATMENT OF VENOUS THROMBOSIS 2-3 TREATMENT OF PULMONARY EMBOLISM 2-3 PREVENTION OF SYSTEMIC EMBOLISM: 2-3 ACUTE MYOCARDIAL INFARCTION TISSUE HEART VALVES VALVULAR HEART DISEASE ATRIAL FIBRILLATION RECURRENT SYSTEMIC EMBOLISM MECHANICAL HEART VALVE 2.5-3.5 FROM: ORAL ANTICOAGULANTS. MECHANISM OF ACTION, CLINICAL EFFECTIVENESS, AND OPTIMAL THERAPEUTIC RANGE. CHEST 1995;108:231S-246S. Performed By: #### 3 5200 #### [facility] [address] PT Coag (PPP) [Time] 19.5 s High 12.3-14.8 [facility] Comment on above: Order Comment: No: D o not add to previous draw Result Comment: ALL RESULTS MUST BE INTERPRETED WITH RESPECT TO BLOOD DRAWING ARTIFACT OR DILUTION ERROR OF ANTICOAGULANT AT THE TIME OF SAMPLING. Performed By: #### 3 5200 #### [facility] [address] [place] [address], [facility] BASIC METABOLIC PANELon 05-2 Calcium [Mass/Vol] 10.0 mg/dL Normal 8.6-10.3 [facility] Comment on above: Order Comment: No: D o not add to previous draw Performed By: #### 1 69, 65801 #### [facility] [address] [place] [address], [facility] Chloride [Moles/Vol] 92 mmol/L Low 98-107 [facility] Comment on above: Order Comment: No: D o not add to previous draw Performed By: #### 1 69, 66692 #### [facility] [address] [place] [address], [facility] CO2 [Moles/Vol] 35 mmol/L High 21-31 [facility] Comment on above: Order Comment: No: D o not add to previous draw Performed By: #### 1 69, 33410 #### [facility] [address] [place] [address], [place] Creatinine [Mass/Vol] 1.89 mg/dL High 0.70-1.30 [facility] Comment on above: Order Comment: No: D o not add to previous draw Performed By: #### 1 69, 19265 #### [facility] [address] [place] [address], [facility] eGFR- 43 ml/min/1.73sq m Abnormal >60 [facility] Comment on above: Order Comment: No: D o not add to previous draw Performed By: #### 1 69, 74783 #### [facility] [address] [place] [id number], [facility] eGFR- non- 36 ml/min/1.73sq m Abnormal >60 [facility] Comment on above: Order Comment: No: D o not add to previous draw Performed By: #### 1 69, 90462 #### [facility] [address] [place] [address], [place] Glucose [Mass/Vol] 187 mg/dL High 70-100 [facility] Comment on above: Order Comment: No: D o not add to previous draw Performed By: #### 1 69, 42661 #### [facility] [address] [place] [address], [place] Potassium [Moles/Vol] 4.1 mmol/L Normal 3.5-5.1 [facility] Comment on above: Order Comment: No: D o not add to previous draw Performed By: #### 1 69, 35676 #### [facility] [address] [place] [address], [place] Sodium [Moles/Vol] 137 mmol/L Normal 136-145 [facility] Comment on above: Order Comment: No: D o not add to previous draw Performed By: #### 1 0070, 38341 #### [facility] [address] [facility] [place] [address], [facility] Urea nitrogen [Mass/Vol] 52 mg/dL High 7-25 [facility] Comment on above: Order Comment: No: D o not add to previous draw Performed By: #### 1 0, 76688 #### [facility] [address] [place] [address], [facility] CBC W/DIFFon 04-16-2021 ABS IMM GRANS 0.0 10*3/uL Normal 0.0-0.2 [facility] Comment on above: Order Comment: No: D o not add to previous draw Performed By: #### 3 5200 #### [facility] [address] [facility] [place] [address], [facility] ABS NEUTROPHILS 5.9 10*3/uL Normal 1.6-7.6 [facility] Comment on above: Order Comment: No: D o not add to previous draw Performed By: #### 3 5200 #### [facility] [address] [facility] [place] [address], [facility] Basophils (Bld) [#/Vol] 0.0 10*3/uL Normal 0.0-0.2 [facility] Comment on above: Order Comment: No: D o not add to previous draw Performed By: #### 3 5200 #### [facility] [address] [place] [address], [facility] Basophils/100 WBC (Bld) 0.3 % Normal 0.0-1.0 [facility] Comment on above: Order Comment: No: D o not add to previous draw Performed By: #### 3 5200 #### [facility] [address] [place] [address], [facility] Eosinophils (Bld) [#/Vol] 0.4 10*3/uL Normal 0.0-0.5 [facility] Comment on above: Order Comment: No: D o not add to previous draw Performed By: #### 3 5200 #### [facility] [address] [place] [address], [facility] Eosinophils/100 WBC (Bld) 4.3 % Normal 0.0-6.0 [facility] Comment on above: Order Comment: No: D o not add to previous draw Performed By: #### 3 5200 #### [facility] [address] [facility] [place] [address], [facility] Erythrocyte distribution width (RBC) [Ratio] 16.1 % High 11.5-15.0 [facility] Comment on above: Order Comment: No: D o not add to previous draw Performed By: #### 3 5200 #### [facility] [address] [facility] [place] [address], [facility] Hematocrit (Bld) [Volume fraction] 37.0 % Low 39.0-50.0 [facility] Comment on above: Order Comment: No: D o not add to previous draw Performed By: #### 3 5200 #### [facility] [address] [facility] [place] [address], [facility] Hemoglobin (Bld) [Mass/Vol] 11.4 g/dL Low 13.0-17.0 [facility] Comment on above: Order Comment: No: D o not add to previous draw Performed By: #### 3 5200 #### [facility] [address] [facility] [place] [address], [facility] IMMATURE GRANS 0.3 % Normal 0.0-1.0 [facility] Comment on above: Order Comment: No: D o not add to previous draw Performed By: #### 3 5200 #### [facility] [address] [place] [address], [facility] Lymphocytes (Bld) [#/Vol] 1.8 10*3/uL Normal 1.2-4.0 [facility] Comment on above: Order Comment: No: D o not add to previous draw Performed By: #### 3 5200 #### [facility] [address] [place] [address], [facility] Lymphocytes/100 WBC (Bld) 20.7 % Normal 20.0-45.0 [facility] Comment on above: Order Comment: No: D o not add to previous draw Performed By: #### 3 5200 #### [facility] [address] [facility] [place] [address], [facility] MCH (RBC) [Entitic mass] 27.1 pg Normal 27.0-33.0 [facility] Comment on above: Order Comment: No: D o not add to previous draw Performed By: #### 3 5200 #### [facility] [address] [facility] [place] [address], [facility] MCHC (RBC) [Mass/Vol] 30.8 g/dL Low 32.0-35.0 [facility] Comment on above: Order Comment: No: D o not add to previous draw Performed By: #### 3 5200 #### [facility] [address] [facility] [place] [address], [facility] MCV (RBC) [Entitic vol] 88.1 fL Normal 82.0-98.0 [facility] Comment on above: Order Comment: No: D o not add to previous draw Performed By: #### 3 5200 #### [facility] [address] [facility] [place] [address], [facility] Monocytes (Bld) [#/Vol] 0.7 10*3/uL Normal 0.1-1.0 [facility] Comment on above: Order Comment: No: D o not add to previous draw Performed By: #### 3 5200 #### [facility] [address] [place] [id number], [facility] MONOS 7.9 % Normal 5.0-12.0 [facility] Comment on above: Order Comment: No: D o not add to previous draw Performed By: #### 3 5200 #### [facility] [address] [place] [address], [facility] Neutrophils/100 WBC (Bld) 66.5 % Normal 40.0-72.0 [facility] Comment on above: Order Comment: No: D o not add to previous draw Performed By: #### 3 5200 #### [facility] [address] [place] [address], [facility] Nucleated RBC/100 WBC (Bld) [Ratio] 0 % Normal 0-0 [facility] Comment on above: Order Comment: No: D o not add to previous draw Performed By: #### 3 5200 #### [facility] [address] [place] [address], [facility] PLAT CNT 189 10*3/uL Normal 150-400 [facility] Comment on above: Order Comment: No: D o not add to previous draw Performed By: #### 3 5200 #### [facility] [address] [facility] [place] [address], [facility] RBC (Bld) [#/Vol] 4.20 10*6/uL Normal 4.20-5.70 [facility] Comment on above: Order Comment: No: D o not add to previous draw Performed By: #### 3 5200 #### [facility] [address] [place] [address], [place] WBC (Bld) [#/Vol] 8.82 10*3/uL Normal 4.00-10.60 [facility] Comment on above: Order Comment: No: D o not add to previous draw Performed By: #### 3 5200 #### [facility] [address] [place] [address], [facility] HEMOGLOBIN A1Con 04-16-2021 Glucose [Moles/Vol] 180 mmol/L Normal [facility] Comment on above: Order Comment: Yes: Add to Previous draw if able Performed By: #### 8 5499 #### [facility] [address] [place] [address], [place] HbA1c (Bld) [Mass fraction] 7.9 % High 4.0-6.0 [facility] Comment on above: Order Comment: Yes: Add to Previous draw if able Performed By: #### 8 5499 #### [facility] [address] [place] [address], [place] MAGNESIUM BLOODon 04-16-2021 Magnesium [Mass/Vol] 2.3 mg/dL Normal 1.9-2.7 [facility] Comment on above: Order Comment: No: D o not add to previous draw Performed By: #### 1 0070, 73566 #### [facility] [address] [place] [address], [place] POC GLUCOSE LABon 04-16-2021 Glucose [Mass/Vol] 357 mg/dL High 70-100 [facility] Comment on above: Performed By: #### 8 5499 #### [facility] [address] [place] [address], [place] Glucose [Mass/Vol] 149 mg/dL High 70-100 [facility] Comment on above: Performed By: #### 9 9909, 87606, 83411, 76347 #### [facility] [address] [place] [address], [place] Glucose [Mass/Vol] 243 mg/dL High 70-100 [facility] Comment on above: Performed By: #### 8 5499 #### [facility] [address] [place] [address], [place] Glucose [Mass/Vol] 181 mg/dL High 70-100 [facility] Comment on above: Performed By: #### 9 9909, 25753, 86981, 93035 #### [facility] [address] [place] [address], [place] PROTHROMBIN TIMEon 1 INR Coag (PPP) [Relative time] 1.63 {INR} High 0.91-1.16 [facility] Comment on above: Order Comment: No: D o not add to previous draw Result Comment: [facility] P RECOMMENDED INR FOR WARFARIN THERAPY -------- ------- CONDITION INR PROPHYLAXIS OF VENOUS THROMBOSIS 2-3 (HIGH-RISK SURGERY) TREATMENT OF VENOUS THROMBOSIS 2-3 TREATMENT OF PULMONARY EMBOLISM 2-3 PREVENTION OF SYSTEMIC EMBOLISM: 2-3 ACUTE MYOCARDIAL INFARCTION TISSUE HEART VALVES VALVULAR HEART DISEASE ATRIAL FIBRILLATION RECURRENT SYSTEMIC EMBOLISM MECHANICAL HEART VALVE 2.5-3.5 FROM: ORAL ANTICOAGULANTS. MECHANISM OF ACTION, CLINICAL EFFECTIVENESS, AND OPTIMAL THERAPEUTIC RANGE. CHEST 1995;108:231S-246S. Performed By: #### 3 5200 #### [facility] [address] [facility] [place] [address], [facility] PT Coag (PPP) [Time] 19.4 s High 12.3-14.8 [facility] Comment on above: Order Comment: No: D o not add to previous draw Result Comment: ALL RESULTS MUST BE INTERPRETED WITH RESPECT TO BLOOD DRAWING ARTIFACT OR DILUTION ERROR OF ANTICOAGULANT AT THE TIME OF SAMPLING. Performed By: #### 3 5200 #### [facility] [address] [place] [address], [facility] INR Coag (PPP) [Relative time] 1.66 {INR} High 0.91-1.16 [facility] Comment on above: Order Comment: No: D o not add to previous draw Result Comment: [facility] P RECOMMENDED INR FOR WARFARIN THERAPY -------- ------- CONDITION INR PROPHYLAXIS OF VENOUS THROMBOSIS 2-3 (HIGH-RISK SURGERY) TREATMENT OF VENOUS THROMBOSIS 2-3 TREATMENT OF PULMONARY EMBOLISM 2-3 PREVENTION OF SYSTEMIC EMBOLISM: 2-3 ACUTE MYOCARDIAL INFARCTION TISSUE HEART VALVES VALVULAR HEART DISEASE ATRIAL FIBRILLATION RECURRENT SYSTEMIC EMBOLISM MECHANICAL HEART VALVE 2.5-3.5 FROM: ORAL ANTICOAGULANTS. MECHANISM OF ACTION, CLINICAL EFFECTIVENESS, AND OPTIMAL THERAPEUTIC RANGE. CHEST 1995;108:231S-246S. Performed By: #### 3 5200 #### [facility] [address] PT Coag (PPP) [Time] 19.7 s High 12.3-14.8 [facility] Comment on above: Order Comment: No: D o not add to previous draw Result Comment: ALL RESULTS MUST BE INTERPRETED WITH RESPECT TO BLOOD DRAWING ARTIFACT OR DILUTION ERROR OF ANTICOAGULANT AT THE TIME OF SAMPLING. Performed By: #### 3 5200 #### [facility] [address] BASIC METABOLIC PANELon 05-2 Calcium [Mass/Vol] 9.7 mg/dL Normal 8.6-10.3 [facility] Comment on above: Order Comment: No: D o not add to previous draw Performed By: #### 9 9909, 02553, 55539, 42548 #### [facility] [address] Chloride [Moles/Vol] 92 mmol/L Low 98-107 [facility] Comment on above: Order Comment: No: D o not add to previous draw Performed By: #### 9 9909, 68738, 48200, 84569 #### [facility] [address] [place] [address], [place] CO2 [Moles/Vol] 36 mmol/L High 21-31 [facility] Comment on above: Order Comment: No: D o not add to previous draw Performed By: #### 9 9909, 89072, 53224, 63991 #### [facility] [address] [place] [address], [place] Creatinine [Mass/Vol] 1.86 mg/dL High 0.70-1.30 [facility] Comment on above: Order Comment: No: D o not add to previous draw Performed By: #### 9 9909, 55868, 85298, 83759 #### [facility] [address] [place] [address], [place] eGFR- 44 ml/min/1.73sq m Abnormal >60 [facility] Comment on above: Order Comment: No: D o not add to previous draw Performed By: #### 9 9909, 56755, 87097, 64801 #### [facility] [address] [place] [address], [place] eGFR- non- 37 ml/min/1.73sq m Abnormal >60 [facility] Comment on above: Order Comment: No: D o not add to previous draw Performed By: #### 9 9909, 25130, 87020, 72199 #### [facility] [address] [place] [address], [place] Glucose [Mass/Vol] 167 mg/dL High 70-100 [facility] Comment on above: Order Comment: No: D o not add to previous draw Performed By: #### 9 9909, 30542, 62026, 71898 #### [facility] [address] [place] [address], [place] Potassium [Moles/Vol] 4.0 mmol/L Normal 3.5-5.1 [facility] Comment on above: Order Comment: No: D o not add to previous draw Performed By: #### 9 9909, 35043, 41050, 35723 #### [facility] [address] [place] [address], [facility] Sodium [Moles/Vol] 138 mmol/L Normal 136-145 [facility] Comment on above: Order Comment: No: D o not add to previous draw Performed By: #### 9 9909, 60281, 07342, 05095 #### [facility] [address] [place] [address], [facility] Urea nitrogen [Mass/Vol] 44 mg/dL High 7-25 [facility] Comment on above: Order Comment: No: D o not add to previous draw Performed By: #### 9 9909, 43233, 35357, 74373 #### [facility] [address] [facility] [place] [address], [facility] CBC W/DIFFon 04-15-2021 ABS IMM GRANS 0.0 10*3/uL Normal 0.0-0.2 [facility] Comment on above: Order Comment: No: D o not add to previous draw Performed By: #### 3 5200 #### [facility] [address] [facility] [place] [address], [facility] ABS NEUTROPHILS 6.3 10*3/uL Normal 1.6-7.6 [facility] Comment on above: Order Comment: No: D o not add to previous draw Performed By: #### 3 5200 #### [facility] [address] [place] [id number], [facility] Basophils (Bld) [#/Vol] 0.0 10*3/uL Normal 0.0-0.2 [facility] Comment on above: Order Comment: No: D o not add to previous draw Performed By: #### 3 5200 #### [facility] [address] [place] [id number], [facility] Basophils/100 WBC (Bld) 0.3 % Normal 0.0-1.0 [facility] Comment on above: Order Comment: No: D o not add to previous draw Performed By: #### 3 5200 #### [facility] [address] [place] [address], [facility] Eosinophils (Bld) [#/Vol] 0.4 10*3/uL Normal 0.0-0.5 [facility] Comment on above: Order Comment: No: D o not add to previous draw Performed By: #### 3 5200 #### [facility] [address] [place] [address], [facility] Eosinophils/100 WBC (Bld) 4.5 % Normal 0.0-6.0 [facility] Comment on above: Order Comment: No: D o not add to previous draw Performed By: #### 3 5200 #### [facility] [address] [facility] [place] [address], [facility] Erythrocyte distribution width (RBC) [Ratio] 16.3 % High 11.5-15.0 [facility] Comment on above: Order Comment: No: D o not add to previous draw Performed By: #### 3 5200 #### [facility] [address] [place] [address], [facility] Hematocrit (Bld) [Volume fraction] 37.4 % Low 39.0-50.0 [facility] Comment on above: Order Comment: No: D o not add to previous draw Performed By: #### 3 5200 #### [facility] [address] [place] [address], [facility] Hemoglobin (Bld) [Mass/Vol] 11.4 g/dL Low 13.0-17.0 [facility] Comment on above: Order Comment: No: D o not add to previous draw Performed By: #### 3 5200 #### [facility] [address] [place] [address], [facility] IMMATURE GRANS 0.3 % Normal 0.0-1.0 [facility] Comment on above: Order Comment: No: D o not add to previous draw Performed By: #### 3 5200 #### [facility] [address] [facility] [place] [address], [facility] Lymphocytes (Bld) [#/Vol] 1.8 10*3/uL Normal 1.2-4.0 [facility] Comment on above: Order Comment: No: D o not add to previous draw Performed By: #### 3 5200 #### [facility] [address] [facility] [place] [address], [facility] Lymphocytes/100 WBC (Bld) 19.1 % Low 20.0-45.0 [facility] Comment on above: Order Comment: No: D o not add to previous draw Performed By: #### 3 5200 #### [facility] [address] [facility] [place] [address], [facility] MCH (RBC) [Entitic mass] 27.2 pg Normal 27.0-33.0 [facility] Comment on above: Order Comment: No: D o not add to previous draw Performed By: #### 3 5200 #### [facility] [address] [facility] [place] [address], [facility] MCHC (RBC) [Mass/Vol] 30.5 g/dL Low 32.0-35.0 [facility] Comment on above: Order Comment: No: D o not add to previous draw Performed By: #### 3 5200 #### [facility] [address] [facility] [place] [id number], [facility] MCV (RBC) [Entitic vol] 89.3 fL Normal 82.0-98.0 [facility] Comment on above: Order Comment: No: D o not add to previous draw Performed By: #### 3 5200 #### [facility] [address] [place] [id number], [facility] Monocytes (Bld) [#/Vol] 0.7 10*3/uL Normal 0.1-1.0 [facility] Comment on above: Order Comment: No: D o not add to previous draw Performed By: #### 3 5200 #### [facility] [address] [place] [address], [facility] MONOS 7.4 % Normal 5.0-12.0 [facility] Comment on above: Order Comment: No: D o not add to previous draw Performed By: #### 3 5200 #### [facility] [address] [place] [address], [facility] Neutrophils/100 WBC (Bld) 68.4 % Normal 40.0-72.0 [facility] Comment on above: Order Comment: No: D o not add to previous draw Performed By: #### 3 5200 #### [facility] [address] [place] [address], [facility] Nucleated RBC/100 WBC (Bld) [Ratio] 0 % Normal 0-0 [facility] Comment on above: Order Comment: No: D o not add to previous draw Performed By: #### 3 5200 #### [facility] [address] [facility] [place] [address], [place] PLAT CNT 177 10*3/uL Normal 150-400 [facility] Comment on above: Order Comment: No: D o not add to previous draw Performed By: #### 3 5200 #### [facility] [address] [place] [id number], [facility] RBC (Bld) [#/Vol] 4.19 10*6/uL Low 4.20-5.70 [facility] Comment on above: Order Comment: No: D o not add to previous draw Performed By: #### 3 5200 #### [facility] [address] [place] [address], [place] WBC (Bld) [#/Vol] 9.21 10*3/uL Normal 4.00-10.60 [facility] Comment on above: Order Comment: No: D o not add to previous draw Performed By: #### 3 5200 #### [facility] [address] [place] [address], [place] MAGNESIUM BLOODon 04-15-2021 Magnesium [Mass/Vol] 2.3 mg/dL Normal 1.9-2.7 [facility] Comment on above: Order Comment: No: D o not add to previous draw Performed By: #### 9 9909, 23529, 70367, 36783 #### [facility] [address] [place] [address], [place] POC GLUCOSE LABon 04-15-2021 Glucose [Mass/Vol] 230 mg/dL High 70-100 [facility] Comment on above: Performed By: #### 8 5499 #### [facility] [address] [place] [address], [place] Glucose [Mass/Vol] 260 mg/dL High 70-100 [facility] Comment on above: Performed By: #### 8 [id number] #### [facility] [address] [place] [address], [place] Glucose [Mass/Vol] 273 mg/dL High 70-100 [facility] Comment on above: Performed By: #### 9 9909, 84906, 55837, 18605 #### [facility] [address] [place] [address], [place] Glucose [Mass/Vol] 168 mg/dL High 70-100 [facility] Comment on above: Performed By: #### 8 [id number] #### [facility] [address] [place] [address], [place] PROTHROMBIN TIMEon INR Coag (PPP) [Relative time] 1.77 {INR} High 0.91-1.16 [facility] Comment on above: Order Comment: No: D o not add to previous draw Result Comment: ACCC P RECOMMENDED INR FOR WARFARIN THERAPY -------- ------- CONDITION INR PROPHYLAXIS OF VENOUS THROMBOSIS 2-3 (HIGH-RISK SURGERY) TREATMENT OF VENOUS THROMBOSIS 2-3 TREATMENT OF PULMONARY EMBOLISM 2-3 PREVENTION OF SYSTEMIC EMBOLISM: 2-3 ACUTE MYOCARDIAL INFARCTION TISSUE HEART VALVES VALVULAR HEART DISEASE ATRIAL FIBRILLATION RECURRENT SYSTEMIC EMBOLISM MECHANICAL HEART VALVE 2.5-3.5 FROM: ORAL ANTICOAGULANTS. MECHANISM OF ACTION, CLINICAL EFFECTIVENESS, AND OPTIMAL THERAPEUTIC RANGE. CHEST 1995;108:231S-246S. Performed By: #### 3 [id number] #### [facility] [address] PT Coag (PPP) [Time] 20.7 s High 12.3-14.8 [facility] Comment on above: Order Comment: No: D o not add to previous draw Result Comment: ALL RESULTS MUST BE INTERPRETED WITH RESPECT TO BLOOD DRAWING ARTIFACT OR DILUTION ERROR OF ANTICOAGULANT AT THE TIME OF SAMPLING. Performed By: #### 3 5200 #### [facility] [address] INR Coag (PPP) [Relative time] 1.80 {INR} High 0.91-1.16 [facility] Comment on above: Order Comment: Unkno wn Result Comment: ACCC P RECOMMENDED INR FOR WARFARIN THERAPY -------- ------- CONDITION INR PROPHYLAXIS OF VENOUS THROMBOSIS 2-3 (HIGH-RISK SURGERY) TREATMENT OF VENOUS THROMBOSIS 2-3 TREATMENT OF PULMONARY EMBOLISM 2-3 PREVENTION OF SYSTEMIC EMBOLISM: 2-3 ACUTE MYOCARDIAL INFARCTION TISSUE HEART VALVES VALVULAR HEART DISEASE ATRIAL FIBRILLATION RECURRENT SYSTEMIC EMBOLISM MECHANICAL HEART VALVE 2.5-3.5 FROM: ORAL ANTICOAGULANTS. MECHANISM OF ACTION, CLINICAL EFFECTIVENESS, AND OPTIMAL THERAPEUTIC RANGE. CHEST 1995;108:231S-246S. Performed By: #### 8 [id number] #### [facility] [address] [place] [address], [facility] PT Coag (PPP) [Time] 21.0 s High 12.3-14.8 [facility] Comment on above: Order Comment: Unkno wn Result Comment: ALL RESULTS MUST BE INTERPRETED WITH RESPECT TO BLOOD DRAWING ARTIFACT OR DILUTION ERROR OF ANTICOAGULANT AT THE TIME OF SAMPLING. Performed By: #### 8 [id number] #### [facility] [address] [place] [id number], [facility] BASIC METABOLIC PANELon 05-2 Calcium [Mass/Vol] 9.4 mg/dL Normal 8.6-10.3 [facility] Comment on above: Order Comment: No: D o not add to previous draw Performed By: #### 8 [id number] #### [facility] [address] [place] [address], [facility] Chloride [Moles/Vol] 95 mmol/L Low 98-107 [facility] Comment on above: Order Comment: No: D o not add to previous draw Performed By: #### 8 [id number] #### [facility] [address] [place] [address], [place] CO2 [Moles/Vol] 35 mmol/L High 21-31 [facility] Comment on above: Order Comment: No: D o not add to previous draw Performed By: #### 8 [id number] #### [facility] [address] [place] [address], [place] Creatinine [Mass/Vol] 1.77 mg/dL High 0.70-1.30 [facility] Comment on above: Order Comment: No: D o not add to previous draw Performed By: #### 8 [id number] #### [facility] [address] [place] [address], [place] eGFR- 47 ml/min/1.73sq m Abnormal >60 [facility] Comment on above: Order Comment: No: D o not add to previous draw Performed By: #### 8 [id number] #### [facility] [address] [place] [address], [place] eGFR- non- 39 ml/min/1.73sq m Abnormal >60 [facility] Comment on above: Order Comment: No: D o not add to previous draw Performed By: #### 8 [id number] #### [facility] [address] [place] [address], [place] Glucose [Mass/Vol] 135 mg/dL High 70-100 [facility] Comment on above: Order Comment: No: D o not add to previous draw Performed By: #### 8 [id number] #### [facility] [address] [place] [address], [place] Potassium [Moles/Vol] 3.7 mmol/L Normal 3.5-5.1 [facility] Comment on above: Order Comment: No: D o not add to previous draw Performed By: #### 8 [id number] #### [facility] [address] [place] [address], [place] Sodium [Moles/Vol] 140 mmol/L Normal 136-145 [facility] Comment on above: Order Comment: No: D o not add to previous draw Performed By: #### 8 [id number] #### [facility] [address] [place] [address], [place] Urea nitrogen [Mass/Vol] 43 mg/dL High 7-25 [facility] Comment on above: Order Comment: No: D o not add to previous draw Performed By: #### 8 [id number] #### [facility] [address] [facility] [place] [address], [facility] CBC W/DIFFon 04-14-2021 ABS IMM GRANS 0.0 10*3/uL Normal 0.0-0.2 [facility] Comment on above: Order Comment: No: D o not add to previous draw Performed By: #### 8 [id number] #### [facility] [address] [facility] [place] [address], [facility] ABS NEUTROPHILS 6.4 10*3/uL Normal 1.6-7.6 [facility] Comment on above: Order Comment: No: D o not add to previous draw Performed By: #### 8 [id number] #### [facility] [address] [facility] [place] [address], [facility] Basophils (Bld) [#/Vol] 0.0 10*3/uL Normal 0.0-0.2 [facility] Comment on above: Order Comment: No: D o not add to previous draw Performed By: #### 8 [id number] #### [facility] [address] [facility] [place] [address], [facility] Basophils/100 WBC (Bld) 0.3 % Normal 0.0-1.0 [facility] Comment on above: Order Comment: No: D o not add to previous draw Performed By: #### 8 [id number] #### [facility] [address] [facility] [place] [address], [facility] Eosinophils (Bld) [#/Vol] 0.4 10*3/uL Normal 0.0-0.5 [facility] Comment on above: Order Comment: No: D o not add to previous draw Performed By: #### 8 [id number] #### [facility] [address] [place] [address], [facility] Eosinophils/100 WBC (Bld) 4.0 % Normal 0.0-6.0 [facility] Comment on above: Order Comment: No: D o not add to previous draw Performed By: #### 8 [id number] #### [facility] [address] [place] [address], [facility] Erythrocyte distribution width (RBC) [Ratio] 16.6 % High 11.5-15.0 [facility] Comment on above: Order Comment: No: D o not add to previous draw Performed By: #### 8 [id number] #### [facility] [address] [place] [address], [facility] Hematocrit (Bld) [Volume fraction] 35.5 % Low 39.0-50.0 [facility] Comment on above: Order Comment: No: D o not add to previous draw Performed By: #### 8 [id number] #### [facility] [address] [place] [address], [facility] Hemoglobin (Bld) [Mass/Vol] 10.9 g/dL Low 13.0-17.0 [facility] Comment on above: Order Comment: No: D o not add to previous draw Performed By: #### 8 [id number] #### [facility] [address] [facility] [place] [address], [facility] IMMATURE GRANS 0.3 % Normal 0.0-1.0 [facility] Comment on above: Order Comment: No: D o not add to previous draw Performed By: #### 8 [id number] #### [facility] [address] [facility] [place] [address], [facility] Lymphocytes (Bld) [#/Vol] 1.6 10*3/uL Normal 1.2-4.0 [facility] Comment on above: Order Comment: No: D o not add to previous draw Performed By: #### 8 [id number] #### [facility] [address] [place] [address], [facility] Lymphocytes/100 WBC (Bld) 17.3 % Low 20.0-45.0 [facility] Comment on above: Order Comment: No: D o not add to previous draw Performed By: #### 8 [id number] #### [facility] [address] [place] [address], [facility] MCH (RBC) [Entitic mass] 27.0 pg Normal 27.0-33.0 [facility] Comment on above: Order Comment: No: D o not add to previous draw Performed By: #### 8 [id number] #### [facility] [address] [place] [id number], [facility] MCHC (RBC) [Mass/Vol] 30.7 g/dL Low 32.0-35.0 [facility] Comment on above: Order Comment: No: D o not add to previous draw Performed By: #### 8 [id number] #### [facility] [address] [place] [id number], [facility] MCV (RBC) [Entitic vol] 88.1 fL Normal 82.0-98.0 [facility] Comment on above: Order Comment: No: D o not add to previous draw Performed By: #### 8 [id number] #### [facility] [address] [facility] [place] [address], [facility] Monocytes (Bld) [#/Vol] 0.7 10*3/uL Normal 0.1-1.0 [facility] Comment on above: Order Comment: No: D o not add to previous draw Performed By: #### 8 [id number] #### [facility] [address] [place] [id number], [facility] MONOS 7.6 % Normal 5.0-12.0 [facility] Comment on above: Order Comment: No: D o not add to previous draw Performed By: #### 8 [id number] #### [facility] [address] [place] [id number], [facility] Neutrophils/100 WBC (Bld) 70.5 % Normal 40.0-72.0 [facility] Comment on above: Order Comment: No: D o not add to previous draw Performed By: #### 8 [id number] #### [facility] [address] [place] [address], [facility] Nucleated RBC/100 WBC (Bld) [Ratio] 0 % Normal 0-0 [facility] Comment on above: Order Comment: No: D o not add to previous draw Performed By: #### 8 [id number] #### [facility] [address] [facility] [place] [address], [facility] PLAT CNT 157 10*3/uL Normal 150-400 [facility] Comment on above: Order Comment: No: D o not add to previous draw Performed By: #### 8 [id number] #### [facility] [address] [facility] [place] [address], [facility] RBC (Bld) [#/Vol] 4.03 10*6/uL Low 4.20-5.70 [facility] Comment on above: Order Comment: No: D o not add to previous draw Performed By: #### 8 [id number] #### [facility] [address] [facility] [place] [address], [facility] WBC (Bld) [#/Vol] 9.10 10*3/uL Normal 4.00-10.60 [facility] Comment on above: Order Comment: No: D o not add to previous draw Performed By: #### 8 [id number] #### [facility] [address] [facility]. [address] DIGOXINon 04-14-2021 Digoxin [Mass/Vol] 1.0 ng/mL Normal 0.7-2.0 [facility] Comment on above: Order Comment: Yes: Add to Previous draw if able Performed By: #### 8 [id number] #### [facility] [address] [facility] [place] [address], [facility] MAGNESIUM BLOODon 04-14-2021 Magnesium [Mass/Vol] 2.2 mg/dL Normal 1.9-2.7 [facility] Comment on above: Order Comment: No: D o not add to previous draw Performed By: #### 8 [id number] #### [facility] [address] [place] [address], [facility] POC GLUCOSE LABon 04-14-2021 Glucose [Mass/Vol] 194 mg/dL High 70-100 [facility] Comment on above: Performed By: #### 8 [id number] #### [facility] [address] [place] [address], [facility] Glucose [Mass/Vol] 188 mg/dL High 70-100 [facility] Comment on above: Performed By: #### 9 9909, 05180, 74572, 20966 #### [facility] [address] [facility] [place] [address], [facility] Glucose [Mass/Vol] 130 mg/dL High 70-100 [facility] Comment on above: Performed By: #### 9 9909, 28228, 70472, 48909 #### [facility] [address] [place] [address], [facility] PROTHROMBIN TIMEon INR Coag (PPP) [Relative time] 1.92 {INR} High 0.91-1.16 [facility] Comment on above: Order Comment: No: D o not add to previous draw Result Comment: ACCC P RECOMMENDED INR FOR WARFARIN THERAPY -------- ------- CONDITION INR PROPHYLAXIS OF VENOUS THROMBOSIS 2-3 (HIGH-RISK SURGERY) TREATMENT OF VENOUS THROMBOSIS 2-3 TREATMENT OF PULMONARY EMBOLISM 2-3 PREVENTION OF SYSTEMIC EMBOLISM: 2-3 ACUTE MYOCARDIAL INFARCTION TISSUE HEART VALVES VALVULAR HEART DISEASE ATRIAL FIBRILLATION RECURRENT SYSTEMIC EMBOLISM MECHANICAL HEART VALVE 2.5-3.5 FROM: ORAL ANTICOAGULANTS. MECHANISM OF ACTION, CLINICAL EFFECTIVENESS, AND OPTIMAL THERAPEUTIC RANGE. CHEST 1995;108:231S-246S. Performed By: #### 9 9909, 84369, 03666, 72087 #### [facility] [address] [facility] [place] [address], [facility] PT Coag (PPP) [Time] 22.1 s High 12.3-14.8 [facility] Comment on above: Order Comment: No: D o not add to previous draw Result Comment: ALL RESULTS MUST BE INTERPRETED WITH RESPECT TO BLOOD DRAWING ARTIFACT OR DILUTION ERROR OF ANTICOAGULANT AT THE TIME OF SAMPLING. Performed By: #### 9 9909, 21547, 37170, 45589 #### [facility] [address] [facility] [place] [address], [facility] INR Coag (PPP) [Relative time] 1.83 {INR} High 0.91-1.16 [facility] Comment on above: Order Comment: No: D o not add to previous draw Result Comment: ACCC P RECOMMENDED INR FOR WARFARIN THERAPY -------- ------- CONDITION INR PROPHYLAXIS OF VENOUS THROMBOSIS 2-3 (HIGH-RISK SURGERY) TREATMENT OF VENOUS THROMBOSIS 2-3 TREATMENT OF PULMONARY EMBOLISM 2-3 PREVENTION OF SYSTEMIC EMBOLISM: 2-3 ACUTE MYOCARDIAL INFARCTION TISSUE HEART VALVES VALVULAR HEART DISEASE ATRIAL FIBRILLATION RECURRENT SYSTEMIC EMBOLISM MECHANICAL HEART VALVE 2.5-3.5 FROM: ORAL ANTICOAGULANTS. MECHANISM OF ACTION, CLINICAL EFFECTIVENESS, AND OPTIMAL THERAPEUTIC RANGE. CHEST 1995;108:231S-246S. Performed By: #### 3 1354 #### [facility] [address] [place] [address], [facility] PT Coag (PPP) [Time] 21.2 s High 12.3-14.8 [facility] Comment on above: Order Comment: No: D o not add to previous draw Result Comment: ALL RESULTS MUST BE INTERPRETED WITH RESPECT TO BLOOD DRAWING ARTIFACT OR DILUTION ERROR OF ANTICOAGULANT AT THE TIME OF SAMPLING. Performed By: #### 3 5200 #### [facility] [address] [place] [address], [facility] BASIC METABOLIC PANELon 05-2 -2020 Calcium [Mass/Vol] 8.5 mg/dL Low 8.6-10.3 [facility] Comment on above: Order Comment: No: D o not add to previous draw Performed By: #### 9 9909, 74422, 14204, 40547 #### [facility] [address] [place] [address], [facility] Chloride [Moles/Vol] 98 mmol/L Normal 98-107 [facility] Comment on above: Order Comment: No: D o not add to previous draw Performed By: #### 9 9909, 49554, 62608, 90824 #### [facility] [address] [place] [address], [facility] CO2 [Moles/Vol] 32 mmol/L High 21-31 [facility] Comment on above: Order Comment: No: D o not add to previous draw Performed By: #### 9 9909, 69499, 41884, 13883 #### [facility] [address] [place] [address], [place] Creatinine [Mass/Vol] 1.77 mg/dL High 0.70-1.30 [facility] Comment on above: Order Comment: No: D o not add to previous draw Performed By: #### 9 9909, 32783, 69678, 29966 #### [facility] [address] [place] [address], [place] eGFR- 47 ml/min/1.73sq m Abnormal >60 [facility] Comment on above: Order Comment: No: D o not add to previous draw Performed By: #### 9 9909, 92996, 75970, 29153 #### [facility] [address] [place] [address], [place] eGFR- non- 39 ml/min/1.73sq m Abnormal >60 [facility] Comment on above: Order Comment: No: D o not add to previous draw Performed By: #### 9 9909, 18382, 73780, 60718 #### [facility] [address] [place] [address], [place] Glucose [Mass/Vol] 129 mg/dL High 70-100 [facility] Comment on above: Order Comment: No: D o not add to previous draw Performed By: #### 9 9909, 11434, 27515, 64447 #### [facility] [address] [place] [address], [place] Potassium [Moles/Vol] 3.8 mmol/L Normal 3.5-5.1 [facility] Comment on above: Order Comment: No: D o not add to previous draw Performed By: #### 9 9909, 98949, 10095, 91759 #### [facility] [address] [place] [address], [place] Sodium [Moles/Vol] 138 mmol/L Normal 136-145 [facility] Comment on above: Order Comment: No: D o not add to previous draw Performed By: #### 9 9909, 84845, 27858, 93655 #### [facility] [address] [place] [address], [place] Urea nitrogen [Mass/Vol] 39 mg/dL High 7-25 [facility] Comment on above: Order Comment: No: D o not add to previous draw Performed By: #### 9 9909, 50921, 55182, 62951 #### [facility] [address] CBC COMPLETE BLOOD COUNTon 04-13-2021 Erythrocyte distribution width (RBC) [Ratio] 16.8 % High 11.5-15.0 [facility] Comment on above: Order Comment: No: D o not add to previous draw Performed By: #### 8 [id number] #### [facility] [address] [facility] [place] [address], [facility] Hematocrit (Bld) [Volume fraction] 33.7 % Low 39.0-50.0 [facility] Comment on above: Order Comment: No: D o not add to previous draw Performed By: #### 8 [id number] #### [facility] [address] [facility]. [address] Hemoglobin (Bld) [Mass/Vol] 10.2 g/dL Low 13.0-17.0 [facility] Comment on above: Order Comment: No: D o not add to previous draw Performed By: #### 8 [id number] #### [facility] [address] [facility] [place] [address], [facility] MCH (RBC) [Entitic mass] 27.1 pg Normal 27.0-33.0 [facility] Comment on above: Order Comment: No: D o not add to previous draw Performed By: #### 8 [id number] #### [facility] [address] [facility] [place] [address], [facility] MCHC (RBC) [Mass/Vol] 30.3 g/dL Low 32.0-35.0 [facility] Comment on above: Order Comment: No: D o not add to previous draw Performed By: #### 8 [id number] #### [facility] [address] [facility] [place] [address], [facility] MCV (RBC) [Entitic vol] 89.6 fL Normal 82.0-98.0 [facility] Comment on above: Order Comment: No: D o not add to previous draw Performed By: #### 8 [id number] #### [facility] [address] [place] [address], [facility] Nucleated RBC/100 WBC (Bld) [Ratio] 0 % Normal 0-0 [facility] Comment on above: Order Comment: No: D o not add to previous draw Performed By: #### 8 [id number] #### [facility] [address] [place] [address], [facility] PLAT CNT 131 10*3/uL Low 150-400 [facility] Comment on above: Order Comment: No: D o not add to previous draw Performed By: #### 8 [id number] #### [facility] [address] [place] [address], [facility] RBC (Bld) [#/Vol] 3.76 10*6/uL Low 4.20-5.70 [facility] Comment on above: Order Comment: No: D o not add to previous draw Performed By: #### 8 [id number] #### [facility] [address] [place] [address], [facility] WBC (Bld) [#/Vol] 11.41 10*3/uL High 4.00-10.60 [facility] Comment on above: Order Comment: No: D o not add to previous draw Performed By: #### 8 [id number] #### [facility] [address] [address] [place] [id number], [facility] MAGNESIUM BLOODon 04-13-2021 Magnesium [Mass/Vol] 2.3 mg/dL Normal 1.9-2.7 [facility] Comment on above: Order Comment: No: D o not add to previous draw Performed By: #### 9 9909, 64683, 16927, 50871 #### [facility] [address] [place] [id number], [facility] POC GLUCOSE LABon 04-13-2021 Glucose [Mass/Vol] 210 mg/dL High 70-100 [facility] Comment on above: Performed By: #### 8 5499 #### [facility] [address] [place] [address], [place] Glucose [Mass/Vol] 90 mg/dL Normal 70-100 [facility] Comment on above: Performed By: #### 9 9909, 45068, 92026, 67926 #### [facility] [address] [place] [address], [place] Glucose [Mass/Vol] 104 mg/dL High 70-100 [facility] Comment on above: Performed By: #### 8 5499 #### [facility] [address] [place] [address], [place] Glucose [Mass/Vol] 77 mg/dL Normal 70-100 [facility] Comment on above: Performed By: #### 9 9909, 11254, 94147, 37275 #### [facility] [address] [place] [address], [place] Glucose [Mass/Vol] 113 mg/dL High 70-100 [facility] Comment on above: Performed By: #### 9 9909, 65657, 75463, 17229 #### [facility] [address] [place] [address], [facility] PROTHROMBIN TIMEon 1 INR Coag (PPP) [Relative time] 2.19 {INR} High 0.91-1.16 [facility] Comment on above: Order Comment: No: D o not add to previous draw Result Comment: ACCC P RECOMMENDED INR FOR WARFARIN THERAPY -------- ------- CONDITION INR PROPHYLAXIS OF VENOUS THROMBOSIS 2-3 (HIGH-RISK SURGERY) TREATMENT OF VENOUS THROMBOSIS 2-3 TREATMENT OF PULMONARY EMBOLISM 2-3 PREVENTION OF SYSTEMIC EMBOLISM: 2-3 ACUTE MYOCARDIAL INFARCTION TISSUE HEART VALVES VALVULAR HEART DISEASE ATRIAL FIBRILLATION RECURRENT SYSTEMIC EMBOLISM MECHANICAL HEART VALVE 2.5-3.5 FROM: ORAL ANTICOAGULANTS. MECHANISM OF ACTION, CLINICAL EFFECTIVENESS, AND OPTIMAL THERAPEUTIC RANGE. CHEST 1995;108:231S-246S. Performed By: #### 3 5200 #### [address] PT Coag (PPP) [Time] 24.5 s High 12.3-14.8 [facility] Comment on above: Order Comment: No: D o not add to previous draw Result Comment: ALL RESULTS MUST BE INTERPRETED WITH RESPECT TO BLOOD DRAWING ARTIFACT OR DILUTION ERROR OF ANTICOAGULANT AT THE TIME OF SAMPLING. Performed By: #### 3 5200 #### [address] TROPONIN-Ion 04-13-2021 Troponin I.cardiac [Mass/Vol] 0.05 ng/mL High 0.00-0.04 [facility] Comment on above: Order Comment: No: D o not add to previous draw Result Comment: REFE RENCE RANGES: 0.00 - 0.04 ng/ml NORMAL 0.05 - 0.50 ng/ml INDETERMINATE > 0.50 ng/ml CONSISTENT WITH AN M.I. Performed By: #### 3 5200 #### [address] US ABDOMEN LIMITED FOR ASCIT ESon 04-13-2021 US ABDOMEN LIMITED FOR ASCITES [facility] Department of Radiology [address] [place] [id number] Patient Name: ADWOA PORTER : 1955 Sex: M Age: Race: White Pt. Location: [address] [place] [address] Patient Status: I Ordered Date: 04/13/2021 3:45:00 AM Completed Date: 04/13/2021 09:04 AM Requesting Provider: VARINDER AVILA Attending Provider: CECILE MAJOR Report Copy To: Signs & Symptoms: Increased abdominal girth History: See Comments Comments: US Guidance Documentation Only Exam: US ABDOMEN LIMITED FOR ASCITES CLINICAL INFORMATION: Increased abdominal girth. TECHNIQUE: Grayscale abdominal ultrasound to evaluate for ascites. COMPARISON: None. FINDINGS IMPRESSION: * There is a small amount of ascites in the left upper and left lower quadrants. Approved by:Bianca De Dios04/13/2021 10:19 AM. I, Shannon Weathers,have reviewed the images and reports Electronically signed: Shannon Weathers. Transcribed by: [email or web address], User Resident: BIANCA NICOLE Electronically Signed by: SHANNON WEATHERS @ 04/13/2021 04:07 PM I personally read this/these film(s) with this resident Normal [facility] Comment on above: Order Comment: No: D o not add to previous draw *BLOOD CULTUREon 04-12-2021 *BLOOD CULTURE Clinical Report: (D) Specimen: BLOOD CULTURE Collected: 04/12/2021 20:24 Status: Final Last Updated: 04/18/2021 07:10 (1) Right AC 2019 CULT RES (Final) No Growth Day 5 Normal [facility] Comment on above: Order Comment: Right AC 2018 Performed By: #### 8 5499 #### [address] *BLOOD CULTURE Clinical Report: (D) Specimen: BLOOD CULTURE Collected: 04/12/2021 20:24 Status: Final Last Updated: 04/18/2021 07:10 (1) Left AC 2021 CULT RES (Final) No Growth Day 5 Normal [facility] Comment on above: Order Comment: Left AC 2021 Performed By: #### 8 5499 #### [facility] [address] BNP (B-TYPE NATRIURETIC PEPT JJ)on 04-12-2021 Natriuretic peptide B (Bld) [Mass/Vol] 502 pg/mL High 0-100 [facility] Comment on above: Order Comment: No: D o not add to previous draw Result Comment: Give n the appropriate clinical setting a BNP result of >100 pg/mL indicates congestive heart failure. Performed By: #### 9 9909, 61231, 34360, 48496 #### [facility] [address] CBC W/DIFFon 04-12-2021 ABS IMM GRANS 0.1 10*3/uL Normal 0.0-0.2 [facility] Comment on above: Performed By: #### 8 5499 #### [facility] [address] ABS NEUTROPHILS 10.5 10*3/uL High 1.6-7.6 [facility] Comment on above: Performed By: #### 8 5499 #### [facility] [address] [place] [address], [facility] Basophils (Bld) [#/Vol] 0.0 10*3/uL Normal 0.0-0.2 [facility] Comment on above: Performed By: #### 8 5499 #### [facility] [address] [place] [address], [facility] Basophils/100 WBC (Bld) 0.2 % Normal 0.0-1.0 [facility] Comment on above: Performed By: #### 8 5499 #### [facility] [address] Eosinophils (Bld) [#/Vol] 0.3 10*3/uL Normal 0.0-0.5 [facility] Comment on above: Performed By: #### 8 5499 #### [facility] [address] Eosinophils/100 WBC (Bld) 2.1 % Normal 0.0-6.0 [facility] Comment on above: Performed By: #### 8 5499 #### [facility] [address] Erythrocyte distribution width (RBC) [Ratio] 17.1 % High 11.5-15.0 [facility] Comment on above: Performed By: #### 8 5499 #### [facility] [address] Hematocrit (Bld) [Volume fraction] 34.8 % Low 39.0-50.0 [facility] Comment on above: Performed By: #### 8 5499 #### [facility] [address] Hemoglobin (Bld) [Mass/Vol] 10.6 g/dL Low 13.0-17.0 [facility] Comment on above: Performed By: #### 8 5499 #### [facility] [address] IMMATURE GRANS 0.4 % Normal 0.0-1.0 [facility] Comment on above: Performed By: #### 8 5499 #### [facility] [address] [place] [address], [facility] Lymphocytes (Bld) [#/Vol] 1.4 10*3/uL Normal 1.2-4.0 [facility] Comment on above: Performed By: #### 8 5499 #### [facility] [address] [place] [address], [facility] Lymphocytes/100 WBC (Bld) 10.5 % Low 20.0-45.0 [facility] Comment on above: Performed By: #### 8 5499 #### [facility] [address] [facility] [place] [address], [facility] MCH (RBC) [Entitic mass] 27.3 pg Normal 27.0-33.0 [facility] Comment on above: Performed By: #### 8 5499 #### [facility] [address] [facility] MCHC (RBC) [Mass/Vol] 30.5 g/dL Low 32.0-35.0 [facility] Comment on above: Performed By: #### 8 5499 #### [facility] [address] [facility] [place] [address], [facility] MCV (RBC) [Entitic vol] 89.7 fL Normal 82.0-98.0 [facility] Comment on above: Performed By: #### 8 5499 #### [facility] [address] [place] [address], [facility] Monocytes (Bld) [#/Vol] 0.8 10*3/uL Normal 0.1-1.0 [facility] Comment on above: Performed By: #### 8 5499 #### [facility] [address] [place] [address], [facility] MONOS 6.4 % Normal 5.0-12.0 [facility] Comment on above: Performed By: #### 8 5499 #### [facility] [address] [place] [address], [facility] Neutrophils/100 WBC (Bld) 80.4 % High 40.0-72.0 [facility] Comment on above: Performed By: #### 8 5499 #### [facility] [address] [facility] [place] [address], [facility] Nucleated RBC/100 WBC (Bld) [Ratio] 0 % Normal 0-0 [facility] Comment on above: Performed By: #### 8 5499 #### [facility] [address] [place] [address], [facility] PLAT CNT 138 10*3/uL Low 150-400 [facility] Comment on above: Performed By: #### 8 5499 #### [facility] [address] [place] [address], [facility] RBC (Bld) [#/Vol] 3.88 10*6/uL Low 4.20-5.70 [facility] Comment on above: Performed By: #### 8 5499 #### [facility] [address] [place] [address], [facility] WBC (Bld) [#/Vol] 13.05 10*3/uL High 4.00-10.60 [facility] Comment on above: Performed By: #### 8 5499 #### [facility] [address] [place] [address], [facility] LIVER BATTERYon 04-12-2021 Albumin [Mass/Vol] 3.8 g/dL Normal 3.5-5.7 [facility] Comment on above: Order Comment: No: D o not add to previous draw Performed By: #### 9 9909, 30051, 10160, 49719 #### [facility] [address] [facility] [place] [address], [facility] ALKALINE PHOSPH 80 IU/L Normal 34-104 [facility] Comment on above: Order Comment: No: D o not add to previous draw Performed By: #### 9 9909, 57604, 53748, 91566 #### [facility] [address] [facility] [place] [address], [facility] ALT [Catalytic activity/Vol] 10 U/L Normal 7-52 [facility] Comment on above: Order Comment: No: D o not add to previous draw Performed By: #### 9 9909, 05062, 54964, 85918 #### [facility] [address] [place] [address], [place] AST [Catalytic activity/Vol] 15 U/L Normal 13-39 [facility] Comment on above: Order Comment: No: D o not add to previous draw Performed By: #### 9 9909, 40983, 71374, 50429 #### [facility] [address] [place] [address], [place] Bilirubin [Mass/Vol] 1.0 mg/dL Normal 0.3-1.0 [facility] Comment on above: Order Comment: No: D o not add to previous draw Performed By: #### 9 9909, 89356, 67624, 94968 #### [facility] [address] [place] [address], [place] Bilirubin.direct [Mass/Vol] 0.5 mg/dL High 0.0-0.2 [facility] Comment on above: Order Comment: No: D o not add to previous draw Performed By: #### 9 9909, 04816, 19580, 58452 #### [facility] [address] [place] [address], [place] Protein [Mass/Vol] 7.2 g/dL Normal 6.0-8.3 [facility] Comment on above: Order Comment: No: D o not add to previous draw Performed By: #### 9 9909, 93988, 37538, 79600 #### [facility] [address] [place] [address], [place] MAGNESIUM BLOODon 04-12-2021 Magnesium [Mass/Vol] 2.5 mg/dL Normal 1.9-2.7 [facility] Comment on above: Order Comment: No: D o not add to previous draw Performed By: #### 9 9909, 20108, 16352, 62872 #### [facility] [address] [place] [address], [place] PHOSPHORUS BLOODon Phosphate [Mass/Vol] 3.7 mg/dL Normal 2.5-5.0 [facility] Comment on above: Order Comment: No: D o not add to previous draw Performed By: #### 9 9909, 10045, 88841, 72843 #### [facility] [address] [place] [address], [facility] POC GLUCOSE LABon 04-12-2021 Glucose [Mass/Vol] 190 mg/dL High 70-100 [facility] Comment on above: Performed By: #### 8 5499 #### [facility] [address] [facility] [place] [address], [facility] Glucose [Mass/Vol] 117 mg/dL High 70-100 [facility] Comment on above: Performed By: #### 8 5499 #### [facility] [address] [place] [address], [facility] PORTABLE CHEST 1 VIEWon 03-20 PORTABLE CHEST 1 VIEW [facility] Department of Radiology [address] [place] [id number] Patient Name: ADWOA PORTER : 1955 Sex: M Age: Race: White Pt. Location: [id number] Patient Status: I Ordered Date: 04/12/2021 4:55:00 PM Completed Date: 04/12/2021 05:16 PM Requesting Provider: ADRIEL NAPOLES Attending Provider: CECILE MAJOR Report Copy To: Signs & Symptoms: O2 Desaturation History: Comments: evaluate for Pulmonary Edema Exam: PORTABLE CHEST 1 VIEW PORTABLE CHEST 1 VIEW 04/12/2021 5:16 PM CLINICAL INDICATIONS: O2 Desaturation TECHNOLOGIST COMMENTS: O2 Desaturation QUESTION FOR THE RADIOLOGIST: evaluate for Pulmonary Edema PROTOCOL: AP(PA) view was obtained. COMPARISON: 10/04/2017 FINDINGS: Portable AP upright view of the chest revealed mild cardiomegaly. Mild bilateral hilar congestion. No focal consolidation, effusion or pneumothorax. Trachea is in the midline. 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 IMPRESSION: Mild CHF with mild congestion but no definite pulmonary edema. Electronically signed: Michaelle Villalba. Transcribed by: [email or web address], User Resident: Electronically Signed by: MICHAELLE VILLALBA @ 04/12/2021 05:27 PM Normal [facility] Comment on above: Order Comment: evalu ate for Pulmonary Edema PROTHROMBIN TIMEon INR Coag (PPP) [Relative time] 2.58 {INR} High 0.91-1.16 [facility] Comment on above: Order Comment: No: D o not add to previous draw Result Comment: ACCC P RECOMMENDED INR FOR WARFARIN THERAPY -------- ------- CONDITION INR PROPHYLAXIS OF VENOUS THROMBOSIS 2-3 (HIGH-RISK SURGERY) TREATMENT OF VENOUS THROMBOSIS 2-3 TREATMENT OF PULMONARY EMBOLISM 2-3 PREVENTION OF SYSTEMIC EMBOLISM: 2-3 ACUTE MYOCARDIAL INFARCTION TISSUE HEART VALVES VALVULAR HEART DISEASE ATRIAL FIBRILLATION RECURRENT SYSTEMIC EMBOLISM MECHANICAL HEART VALVE 2.5-3.5 FROM: ORAL ANTICOAGULANTS. MECHANISM OF ACTION, CLINICAL EFFECTIVENESS, AND OPTIMAL THERAPEUTIC RANGE. CHEST 1995;108:231S-246S. Performed By: #### 3 5200 #### [facility] [address] [facility]. [address] PT Coag (PPP) [Time] 27.9 s High 12.3-14.8 [facility] Comment on above: Order Comment: No: D o not add to previous draw Result Comment: ALL RESULTS MUST BE INTERPRETED WITH RESPECT TO BLOOD DRAWING ARTIFACT OR DILUTION ERROR OF ANTICOAGULANT AT THE TIME OF SAMPLING. Performed By: #### 3 5200 #### [facility] [address] [facility]. [address] TROPONIN-Ion 04-12-2021 Troponin I.cardiac [Mass/Vol] 0.05 ng/mL High 0.00-0.04 [facility] Comment on above: Order Comment: No: D o not add to previous draw Result Comment: REFE RENCE RANGES: 0.00 - 0.04 ng/ml NORMAL 0.05 - 0.50 ng/ml INDETERMINATE > 0.50 ng/ml CONSISTENT WITH AN M.I. Performed By: #### 9 9909, 20983, 37097, 64697 #### [facility] [address] [facility]. [address] Provider Letteron 11-16-2020 Provider Letter (Inserted Image. Radha ble to display) November 16, 2020 ADWOA PORTER [address] [place] [phone] ADWOA PORTER 1955 Dear Adwoa, You missed your scheduled appointment on: 11/16/[address] Duval and the purpose of this letter is to inform you of our *No Show Policy*. Our appointment slots fill rapidly and when we have a no show appointment that time is lost. We could have used that time slot to care for a patient who needed to see one of our providers. Therefore, we ask that you call 24 hours in advance to cancel your appointment. After your second no show within a twelve (12) month period, you will be assessed a $30 charge. This policy is in place so that we can meet the needs of all of our patients and we do appreciate your understanding. Sincerely, [facility] [address], [place] [address] Normal [facility] Coding Summary.on 04-05-2020 Coding Summary. CODING DATE: 020 FINAL [facility] DSC STATUS: Home (Routine DC) PAYOR: Medicare ADMIT DX: REASON FOR VISIT DX: Z01.812 Encounter for preprocedural laboratory examination FINAL DX: PRINCIPAL: Z01.812 Encounter for preprocedural laboratory examination SECONDARY: Z11.59 Encounter for screening for other viral diseases PYMT PROC APC STAT DESCRIPTION DOCTOR NAME DATE NOTE: The code number assigned matches the documented diagnosis and / or procedure in the patient's chart. However, the narrative phrase printed from the coding software may appear abbreviated, or result in slightly different terminology. Coded By: Izabella Benjamin CphT Date Saved: 04/05/2020 10:26 am Normal [facility] Aerobic cultureon 12-04-2019 Aerobic Culture Staphylococcus aureus [facility] Aerobic Culture Klebsiella oxytoca F [facility] Transfusion reaction panel ( ABO, Rh)on 12-04-2019 Microscopic observation Gram stain Nom (Unsp spec) [facility] Vital Signs Date Time Vital Sign Value Performing Clinician Facility 10-08-2023 10:00-0500 Body height 170.18 cm Brittnee Scally Other [facility] Other 10-08-2023 10:00-0500 Body mass index (BMI) [Ratio] 30.57 kg/m2 Brittnee Scally Other [facility] Other 10-08-2023 10:00-0500 Body weight 88.54 kg Brittnee Scally Other [facility] Other 09-18-2023 15:00-0400 Body height 170.18 cm Brittnee Scally Other [facility] Other 09-18-2023 15:00-0400 Diastolic blood pressure 72 mm[Hg] Brittnee Scally Other [facility] Other 09-18-2023 15:00-0400 Respiratory rate 18 /min Brittnee Spain Other [facility] Other 09-18-2023 15:00-0400 SaO2% (BldA) [Mass fraction] 96 % Brittnee Spain Other [facility] Other 09-18-2023 15:00-0400 Systolic blood pressure 115 mm[Hg] Brittnee Scally Other [facility] Other 06-29-2023 10:30-0400 Body height 170.18 cm Vinnie Stewart Other [facility] Other 06-29-2023 10:30-0400 Body mass index (BMI) [Ratio] 31.99 kg/m2 Vinnie Stewart Other [facility] Other 06-29-2023 10:30-0400 Body weight 92.67 kg Vinnie Stewart Other [facility] Other 06-29-2023 10:30-0400 Diastolic blood pressure 72 mm[Hg] Vinnie Stewart Other [facility] Other 06-29-2023 10:30-0400 Respiratory rate 18 /min Vinnie Stewart Other [facility] Other 06-29-2023 10:30-0400 SaO2% (BldA) [Mass fraction] 95 % Vinnie Stewart Other [facility] Other 06-29-2023 10:30-0400 Systolic blood pressure 124 mm[Hg] Vinnie Stewart Other [facility] Other 06-29-2023 08:15-0400 Body height 170.18 cm Brittnee Scally Other [facility] Other 06-29-2023 08:15-0400 Diastolic blood pressure 62 mm[Hg] Brittnee Scally Other [facility] Other 06-29-2023 08:15-0400 Respiratory rate 18 /min Brittnee Scally Other [facility] Other 06-29-2023 08:15-0400 SaO2% (BldA) [Mass fraction] 94 % Brittnee Scally Other [facility] Other 06-29-2023 08:15-0400 Systolic blood pressure 104 mm[Hg] Brittnee Scally Other [facility] Other 06-18-2023 11:30-0400 Body height 170.18 cm Vinnie Stewart Other [facility] Other 06-18-2023 11:30-0400 Body mass index (BMI) [Ratio] 32.89 kg/m2 Vinnie Stewart Other [facility] Other 06-18-2023 11:30-0400 Body temperature 97.5 [degF] Vinnie Stewart Other [facility] Other 06-18-2023 11:30-0400 Body weight 95.26 kg Vinnie Stewart Other [facility] Other 06-18-2023 11:30-0400 Diastolic blood pressure 72 mm[Hg] Vinnie Stewart Other [facility] Other 06-18-2023 11:30-0400 Respiratory rate 18 /min Vinnie Stewart Other [facility] Other 06-18-2023 11:30-0400 SaO2% (BldA) [Mass fraction] 94 % Vinnie Stewart Other [facility] Other 06-18-2023 11:30-0400 Systolic blood pressure 126 mm[Hg] Vinnie Stewart Other [facility] Other 04-19-2023 11:20-0400 Body height 170.18 cm Simba Jac Other [facility] Other 04-19-2023 11:20-0400 Body mass index (BMI) [Ratio] 32.76 kg/m2 Simba Jac Other [facility] Other 04-19-2023 11:20-0400 Body temperature 97.6 [degF] Simba Jac Other [facility] Other 04-19-2023 11:20-0400 Body weight 94.89 kg Simba Jac Other [facility] Other 04-19-2023 11:20-0400 Diastolic blood pressure 60 mm[Hg] Simba Jac Other [facility] Other 04-19-2023 11:20-0400 Respiratory rate 18 /min Simba Jac Other [facility] Other 04-19-2023 11:20-0400 SaO2% (BldA) [Mass fraction] 98 % Simba Jac Other [facility] Other 04-19-2023 11:20-0400 Systolic blood pressure 120 mm[Hg] Simba Jac Other [facility] Other 03-21-2023 14:00-0400 Body height 170.18 cm Vinnie Stewart Other [facility] Other 03-21-2023 14:00-0400 Body mass index (BMI) [Ratio] 32.42 kg/m2 Vinnie Stewart Other [facility] Other 03-21-2023 14:00-0400 Body weight 93.9 kg Vinnie Stewart Other [facility] Other 03-21-2023 14:00-0400 Diastolic blood pressure 86 mm[Hg] Vinnie Stewart Other [facility] Other 03-21-2023 14:00-0400 Respiratory rate 18 /min Vinnie Stewart Other [facility] Other 03-21-2023 14:00-0400 SaO2% (BldA) [Mass fraction] 94 % Vinnie Stewart Other [facility] Other 03-21-2023 14:00-0400 Systolic blood pressure 132 mm[Hg] Vinnie Stewart Other [facility] Other 02-21-2023 15:45-0400 Body height 170.18 cm Vinnie Stewart Other [facility] Other 02-21-2023 15:45-0400 Body mass index (BMI) [Ratio] 32.57 kg/m2 Vinnie Lucasley Other [facility] Other 02-21-2023 15:45-0400 Body weight 94.35 kg Vinnie Stewart Other [facility] Other 02-21-2023 15:45-0400 Diastolic blood pressure 76 mm[Hg] Vinnie Stewart Other [facility] Other 02-21-2023 15:45-0400 Respiratory rate 18 /min Vinnie Stewart Other [facility] Other 02-21-2023 15:45-0400 SaO2% (BldA) [Mass fraction] 97 % Vinnie Stewart Other [facility] Other 02-21-2023 15:45-0400 Systolic blood pressure 134 mm[Hg] Vinnie Lucasley Other [facility] Other 02-14-2023 15:48-0400 Body temperature 97.5 [degF] DO Vinnie Stewart Work Phone: [facility] 02-14-2023 15:48-0400 Diastolic blood pressure 80 mm[Hg] DO Vinnie Stewart Work Phone: [facility] 02-14-2023 15:48-0400 Heart rate 86 /min DO Vinnie Stewart Work Phone: [facility] 02-14-2023 15:48-0400 Respiratory rate 16 /min DO Vinnie Stewart Work Phone: [facility] 02-14-2023 15:48-0400 SaO2% (BldA) [Mass fraction] 98 % DO Vinnie Stewart Work Phone: [facility] 02-14-2023 15:48-0400 Systolic blood pressure 137 mm[Hg] DO Vinnie Lucasley Work Phone: [facility] 02-14-2023 14:01-0400 Body height 175.26 cm DO Vinnie Stewart Work Phone: [facility] 02-14-2023 06:00-0400 Body weight 97 kg DO Vinnie Stewart Work Phone: [facility] 02-13-2023 20:36-0400 Diastolic blood pressure 79 mm[Hg] DO Vinnie Stewart Work Phone: [facility] 02-13-2023 20:36-0400 Heart rate 86 /min DO Vinnie Stewart Work Phone: [facility] 02-13-2023 20:36-0400 Respiratory rate 16 /min DO Vinnie Stewart Work Phone: [facility] 02-13-2023 20:36-0400 SaO2% (BldA) [Mass fraction] 94 % DO Vinnie Stewart Work Phone: [facility] 02-13-2023 20:36-0400 Systolic blood pressure 146 mm[Hg] DO Vinnie Stewart Work Phone: [facility] 02-13-2023 15:38-0400 Body height 175.26 cm DO Vinnie Stewart Work Phone: [facility] 02-13-2023 15:38-0400 Body temperature 97.8 [degF] DO Vinnie Stewart Work Phone: [facility] 02-13-2023 15:38-0400 Body weight 96.16 kg DO Vinnie Stewart Work Phone: [facility] 02-09-2023 12:45-0400 Body height 170.18 cm Vinnie Stewart Other [facility] Other 02-09-2023 12:45-0400 Body mass index (BMI) [Ratio] 33.2 kg/m2 Vinnie Stewart Other [facility] Other 02-09-2023 12:45-0400 Body weight 96.16 kg Vinnie Stewart Other [facility] Other 02-09-2023 12:45-0400 Diastolic blood pressure 82 mm[Hg] Vinnie Stewart Other [facility] Other 02-09-2023 12:45-0400 Respiratory rate 18 /min Vinnie Stewart Other [facility] Other 02-09-2023 12:45-0400 SaO2% (BldA) [Mass fraction] 94 % Vinnie Stewart Other [facility] Other 02-09-2023 12:45-0400 Systolic blood pressure 128 mm[Hg] Vinnie Stewart Other [facility] Other 01-17-2023 15:30-0500 Body height 170.18 cm Vinnie Stewart Other [facility] Other 01-17-2023 15:30-0500 Body mass index (BMI) [Ratio] 36.02 kg/m2 Vinnie Stewart Other [facility] Other 01-17-2023 15:30-0500 Body weight 104.33 kg Vinnie Stewart Other [facility] Other 01-17-2023 15:30-0500 Diastolic blood pressure 82 mm[Hg] Vinnie Stewart Other [facility] Other 01-17-2023 15:30-0500 Respiratory rate 18 /min Vinnie Stewart Other [facility] Other 01-17-2023 15:30-0500 SaO2% (BldA) [Mass fraction] 94 % Vinnie Stewart Other [facility] Other 01-17-2023 15:30-0500 Systolic blood pressure 134 mm[Hg] Vinnie Stewart Other [facility] Other 12-04-2022 13:06-0500 Body height 175.26 cm DO Vinnie Stewart Work Phone: [facility] 12-04-2022 13:06-0500 Body weight 100.8 kg DO Vinnie Stewart Work Phone: [facility] 12-04-2022 13:06-0500 Diastolic blood pressure 84 mm[Hg] DO Vinnie Stewart Work Phone: [facility] 12-04-2022 13:06-0500 Heart rate 86 /min DO Vinnie Stewart Work Phone: [facility] 12-04-2022 13:06-0500 Respiratory rate 20 /min DO Vinnie Stewart Work Phone: [facility] 12-04-2022 13:06-0500 SaO2% (BldA) [Mass fraction] 96 % DO Vinnie Stewart Work Phone: [facility] 12-04-2022 13:06-0500 Systolic blood pressure 129 mm[Hg] DO Vinnie Stewart Work Phone: [facility] 11-07-2022 14:45-0500 Body height 170.18 cm Brittnee Spain Other [facility] Other 11-07-2022 14:45-0500 Body mass index (BMI) [Ratio] 39.7 kg/m2 Brittnee Scally Other [facility] Other 11-07-2022 14:45-0500 Body weight 114.99 kg Brittnee Scally Other [facility] Other 11-07-2022 14:45-0500 Diastolic blood pressure 68 mm[Hg] Brittnee Scally Other [facility] Other 11-07-2022 14:45-0500 Respiratory rate 20 /min Brittnee Scally Other [facility] Other 11-07-2022 14:45-0500 SaO2% (BldA) [Mass fraction] Brittnee Scally Other [facility] Other 11-07-2022 14:45-0500 Systolic blood pressure 108 mm[Hg] Brittnee Scally Other [facility] Other 09-28-2022 13:00-0500 Diastolic blood pressure 67 mm[Hg] Gisselle Dickey Other [facility] Other 09-28-2022 13:00-0500 Respiratory rate 18 /min Gisselle Dickey Other [facility] Other 09-28-2022 13:00-0500 SaO2% (BldA) [Mass fraction] 92 % Gisselle Dickey Other [facility] Other 09-28-2022 13:00-0500 Systolic blood pressure 123 mm[Hg] Gisselle Dickey Other [facility] Other 09-28-2022 12:40-0500 Body height 170.18 cm Simba Jac Other [facility] Other 09-28-2022 12:40-0500 Body mass index (BMI) [Ratio] 37.93 kg/m2 Simba Jac Other [facility] Other 09-28-2022 12:40-0500 Body temperature 96.2 [degF] Simba Jac Other [facility] Other 09-28-2022 12:40-0500 Body weight 109.86 kg Simba Jac Other [facility] Other 09-28-2022 12:40-0500 Diastolic blood pressure 81 mm[Hg] Simba Jac Other [facility] Other 09-28-2022 12:40-0500 Respiratory rate 20 /min Simba Jac Other [facility] Other 09-28-2022 12:40-0500 SaO2% (BldA) [Mass fraction] 90 % Simba Jac Other [facility] Other 09-28-2022 12:40-0500 Systolic blood pressure 139 mm[Hg] Simba Jac Other [facility] Other 09-13-2022 14:00-0400 Body height 170.18 cm Vinnie Stewart Other [facility] Other 09-13-2022 14:00-0400 Body mass index (BMI) [Ratio] 35.71 kg/m2 Vinnie Stewart Other [facility] Other 09-13-2022 14:00-0400 Body weight 103.42 kg Vinnie Terry Other [facility] Other 09-13-2022 14:00-0400 Diastolic blood pressure 81 mm[Hg] Vinnie Stewart Other [facility] Other 09-13-2022 14:00-0400 Respiratory rate 16 /min Vinnie Stewart Other [facility] Other 09-13-2022 14:00-0400 SaO2% (BldA) [Mass fraction] 97 % Vinnie Stewart Other [facility] Other 09-13-2022 14:00-0400 Systolic blood pressure 119 mm[Hg] Vinnie Lucasley Other [facility] Other 07-31-2022 15:30-0400 Body height 170.18 cm Brittnee Scally Other [facility] Other 07-31-2022 15:30-0400 Body mass index (BMI) [Ratio] 35.55 kg/m2 Brittnee Scally Other [facility] Other 07-31-2022 15:30-0400 Body weight 102.97 kg Brittnee Scally Other [facility] Other 07-31-2022 15:30-0400 Diastolic blood pressure 78 mm[Hg] Brittnee Scally Other [facility] Other 07-31-2022 15:30-0400 Respiratory rate 20 /min Brittnee Spain Other [facility] Other 07-31-2022 15:30-0400 SaO2% (BldA) [Mass fraction] 95 % Brittnee Spain Other [facility] Other 07-31-2022 15:30-0400 Systolic blood pressure 125 mm[Hg] Brittnee Spain Other [facility] Other 06-20-2022 12:15-0400 Body height 170.18 cm Vinnie Stewart Other [facility] Other 06-20-2022 12:15-0400 Body mass index (BMI) [Ratio] 35.55 kg/m2 Vinnie Stewart Other [facility] Other 06-20-2022 12:15-0400 Body weight 102.97 kg Vinnie Stewart Other [facility] Other 06-20-2022 12:15-0400 Diastolic blood pressure 47 mm[Hg] Vinnie Stewart Other [facility] Other 06-20-2022 12:15-0400 Respiratory rate 18 /min Vinnie Stewart Other [facility] Other 06-20-2022 12:15-0400 SaO2% (BldA) [Mass fraction] 94 % Vinnie Stewart Other [facility] Other 06-20-2022 12:15-0400 Systolic blood pressure 106 mm[Hg] Vinnie Stewart Other [facility] Other 06-06-2022 11:36-0400 Body temperature 98 [degF] DO Vinnie Stewart Work Phone: [facility] 03-02-2022 15:30-0400 Body height 170.18 cm Vinnie Stewart Other [facility] Other 03-02-2022 15:30-0400 Body mass index (BMI) [Ratio] 35.39 kg/m2 Vinnie Stewart Other [facility] Other 03-02-2022 15:30-0400 Body temperature 97.5 [degF] Vinnie Stewart Other [facility] Other 03-02-2022 15:30-0400 Body weight 102.51 kg Vinnie Stewart Other [facility] Other 03-02-2022 15:30-0400 Diastolic blood pressure 74 mm[Hg] Vinnie Stewart Other [facility] Other 03-02-2022 15:30-0400 Respiratory rate 20 /min Vinnie Stewart Other [facility] Other 03-02-2022 15:30-0400 SaO2% (BldA) [Mass fraction] 94 % Vinnie Stewart Other [facility] Other 03-02-2022 15:30-0400 Systolic blood pressure 114 mm[Hg] Vinnie Stewart Other [facility] Other 02-19-2022 12:05-0400 Body height 170.18 cm Ruthie Guzman Other [facility] Other 02-19-2022 12:05-0400 Body mass index (BMI) [Ratio] 35.71 kg/m2 Ruthie Megan Other [facility] Other 02-19-2022 12:05-0400 Body temperature 97.4 [degF] Ruthie Clementemond Other [facility] Other 02-19-2022 12:05-0400 Body weight 103.42 kg Ruthie Megan Other [facility] Other 02-19-2022 12:05-0400 Diastolic blood pressure 62 mm[Hg] Ruthie Mgean Other [facility] Other 02-19-2022 12:05-0400 Respiratory rate 20 /min Ruthie Guzman Other [facility] Other 02-19-2022 12:05-0400 SaO2% (BldA) [Mass fraction] 94 % Ruthie Guzman Other [facility] Other 02-19-2022 12:05-0400 Systolic blood pressure 116 mm[Hg] Ruthie Guzman Other [facility] Other 02-07-2022 16:00-0400 Body height 170.18 cm Balbir aB Other [facility] Other 02-07-2022 16:00-0400 Body mass index (BMI) [Ratio] 36.02 kg/m2 Balbir Ba Other [facility] Other 02-07-2022 16:00-0400 Body temperature 97.3 [degF] Balbir Ba Other [facility] Other 02-07-2022 16:00-0400 Body weight 104.33 kg Balbir Ba Other [facility] Other 02-07-2022 16:00-0400 Diastolic blood pressure 74 mm[Hg] Balbir Ba Other [facility] Other 02-07-2022 16:00-0400 SaO2% (BldA) [Mass fraction] 98 % Balbir Ba Other [facility] Other 02-07-2022 16:00-0400 Systolic blood pressure 136 mm[Hg] Balbir Ba Other [facility] Other 01-11-2022 14:00-0500 Body height 170.18 cm Brittnee Scally Other [facility] Other 01-11-2022 14:00-0500 Body mass index (BMI) [Ratio] 35.5 kg/m2 Brittnee Scally Other [facility] Other 01-11-2022 14:00-0500 Body weight 102.83 kg Brittnee Scally Other [facility] Other 01-11-2022 14:00-0500 Diastolic blood pressure 62 mm[Hg] Brittnee Scally Other [facility] Other 01-11-2022 14:00-0500 Respiratory rate 20 /min Brittnee Scally Other [facility] Other 01-11-2022 14:00-0500 SaO2% (BldA) [Mass fraction] 98 % Brittnee Scally Other [facility] Other 01-11-2022 14:00-0500 Systolic blood pressure 105 mm[Hg] Brittnee Scally Other [facility] Other 11-16-2021 14:00-0500 Body height 170.18 cm Brittnee Scally Other [facility] Other 11-16-2021 14:00-0500 Body mass index (BMI) [Ratio] 35.72 kg/m2 Brittnee Scally Other [facility] Other 11-16-2021 14:00-0500 Body weight 103.47 kg Brittnee Scally Other [facility] Other 11-16-2021 14:00-0500 Diastolic blood pressure 70 mm[Hg] Brittnee Scally Other [facility] Other 11-16-2021 14:00-0500 Respiratory rate 20 /min Brittnee Scally Other [facility] Other 11-16-2021 14:00-0500 SaO2% (BldA) [Mass fraction] 93 % Brittnee Scally Other [facility] Other 11-16-2021 14:00-0500 Systolic blood pressure 123 mm[Hg] Brittnee Scally Other [facility] Other 10-05-2021 14:45-0500 Body height 170.18 cm Brittnee Scally Other [facility] Other 10-05-2021 14:45-0500 Body mass index (BMI) [Ratio] 35.42 kg/m2 Brittnee Scally Other [facility] Other 10-05-2021 14:45-0500 Body weight 102.6 kg Brittnee Scally Other [facility] Other 10-05-2021 14:45-0500 Diastolic blood pressure 74 mm[Hg] Brittnee Scally Other [facility] Other 10-05-2021 14:45-0500 Respiratory rate 20 /min Brittnee Scally Other [facility] Other 10-05-2021 14:45-0500 SaO2% (BldA) [Mass fraction] 95 % Brittnee Scally Other [facility] Other 10-05-2021 14:45-0500 Systolic blood pressure 123 mm[Hg] Brittnee Scally Other [facility] Other 09-26-2021 12:00-0500 Body height 170.18 cm Vinnie Stewart Other [facility] Other 09-26-2021 12:00-0500 Body mass index (BMI) [Ratio] 35.39 kg/m2 Vinnie Stewart Other [facility] Other 09-26-2021 12:00-0500 Body temperature 98.1 [degF] Vinnie Stewart Other [facility] Other 09-26-2021 12:00-0500 Body weight 102.51 kg Vinnie Stewart Other [facility] Other 09-26-2021 12:00-0500 Diastolic blood pressure 72 mm[Hg] Vinnie Stewart Other [facility] Other 09-26-2021 12:00-0500 Respiratory rate 20 /min Vinnie Stewart Other [facility] Other 09-26-2021 12:00-0500 SaO2% (BldA) [Mass fraction] 95 % Vinnie Stewart Other [facility] Other 09-26-2021 12:00-0500 Systolic blood pressure 118 mm[Hg] Vinnie Stewart Other [facility] Other 12-18-2019 10:11-0500 BMI (Body Mass Index) 35.2 kg/m2 [facility] 12-18-2019 10:11-0500 Body weight 108.4 kg [facility] 12-18-2019 10:11-0500 Height 175.26 cm [facility] 12-18-2019 10:01-0500 Body Temperature 97.8 [degF] [facility] 12-18-2019 10:01-0500 BP Diastolic 80 mm[Hg] [facility] 12-18-2019 10:01-0500 BP Systolic 126 mm[Hg] [facility] 12-18-2019 10:01-0500 Pulse (Heart Rate) 108 /min Vinnie Stewart [facility] 12-18-2019 10:01-0500 Respiratory Rate 16 /min [facility] Encounters Encounter Date Encounter Type Care Provider Facility Start: 11-06-2023 End: 11-06-2023 ambulatory Vinnie Stewart Other [facility] Other Start: 11-06-2023 Telephone encounter Vinnie ROSALES [facility] Start: 11-01-2023 End: 11-01-2023 ambulatory Brittnee Spain Other [facility] Other Start: 11-01-2023 Telephone encounter [facility] Start: 10-25-2023 End: 10-25-2023 ambulatory Vinnie Stewart Other [facility] Other Start: 10-25-2023 Telephone encounter Vinnie Palomino [facility] Start: 10-22-2023 End: 10-22-2023 ambulatory Brittnee Spain Other [facility] Other Start: 10-22-2023 Telephone encounter Brittnee [facility] Start: 10-19-2023 End: 10-19-2023 ambulatory Vinnie Stewart Other [facility] Other Start: 10-19-2023 Telephone encounter Vinnie Palomino [facility] Start: 10-08-2023 End: 10-08-2023 ambulatory Nicolette Manzano Facility:[facility] Start: 10-08-2023 Nursing evaluation o f patient and report Brittnee Spain [facility] Start: 10-04-2023 (Acute) Acute Visit Brittnee [facility] Start: 10-04-2023 End: 10-04-2023 ambulatory Brittnee Spain Other [facility] Other Start: 10-03-2023 End: 10-03-2023 ambulatory Brittnee Spain Other [facility] Other Start: 10-03-2023 Telephone encounter Brittnee [facility] Start: 09-21-2023 End: 09-21-2023 ambulatory [facility] Start: 09-20-2023 End: 09-20-2023 ambulatory Vinnie Stewart Other [facility] Other Start: 09-20-2023 Telephone encounter Vinnie Palom[facility] [place] Start: 09-18-2023 (DM) Diabetes [facility] Start: 09-18-2023 End: 09-18-2023 ambulatory Vinnie Stewart Other [facility] Other Start: 09-18-2023 Telephone encounter Vinnie Palomino [facility] [place] Start: 09-17-2023 End: 09-17-2023 ambulatory Vinnie Stewart Other [facility] Other Start: 09-17-2023 Telephone encounter Vinnie Palomino [facility] Start: 08-31-2023 End: 08-31-2023 ambulatory Brittnee Judit Other [facility] Other Start: 08-31-2023 Telephone encounter Brittnee Matt [facility] Start: 08-30-2023 End: 08-30-2023 ambulatory UNKNOWN SABINO [facility] Other Start: 08-30-2023 Telephone encounter Vinnie Palom[facility] Start: 08-23-2023 End: 08-23-2023 ambulatory MASSIMOAWLE SIMEON [facility] Other Start: 08-23-2023 Telephone encounter Vinnie [facility]om[facility] Start: 08-20-2023 End: 08-20-2023 ambulatory Vinnie Stewart Other [facility] Other Start: 08-20-2023 Telephone encounter Vinnie Palomino [facility] Start: 08-15-2023 Telephone encounter Vinnie Palomino [facility] [place] Start: 08-15-2023 End: 08-15-2023 ambulatory BRYCE WATSON [employer] Other Start: 08-03-2023 End: 08-03-2023 ambulatory Vinnie Stewart Other [facility] Other Start: 08-03-2023 Telephone encounter Vinnie Palomino [facility] [place] Start: 07-30-2023 End: 07-30-2023 ambulatory Vinnie Stewart Other [facility] Other Start: 07-30-2023 Telephone encounter Vinnie ROSALES [facility] [place] Start: 07-27-2023 End: 07-27-2023 ambulatory Vinnie Stewart Other [facility] Other Start: 07-27-2023 Telephone encounter Vinnie ROSALES [facility] [place] Start: 07-24-2023 End: 07-24-2023 ambulatory [facility] Start: 07-20-2023 End: 07-20-2023 ambulatory Vinnie Stewart Other [facility] Other Start: 07-20-2023 Telephone encounter Vinnie ROSALES [facility] Start: 07-19-2023 End: 07-19-2023 ambulatory Vinnie Stewart Other [facility] Other Start: 07-19-2023 Telephone encounter Vinnie ROSALES [facility] [place] Start: 07-16-2023 End: 07-16-2023 ambulatory Vinnie Stewart Other [facility] Other Start: 07-16-2023 Telephone encounter Vinnie ROSALES [facility] [place] Start: 07-12-2023 End: 07-12-2023 ambulatory Vinnie Stewart Other [facility] Other Start: 07-12-2023 Telephone encounter Vinnie Palom[facility] Start: 06-29-2023 (DM) Diabetes Brittnee yee [facility] Start: 06-29-2023 End: 06-29-2023 ambulatory Vinnie Stewart Other [facility] Other Start: 06-29-2023 Office outpatient visit 15 minutes Vinnie Stewart [facility] [place] Start: 06-18-2023 End: 06-18-2023 ambulatory Vinnie Stewart Other [facility] Other Start: 06-18-2023 Office outpatient visit 15 minutes Vinnie Stewart [facility] [place] Start: 06-15-2023 End: 06-15-2023 ambulatory Vinnie Stewart Other [facility] Other Start: 06-15-2023 Telephone encounter Vinnie Palomino [facility] [place] Start: 06-05-2023 End: 06-06-2023 ambulatory [facility] Start: 05-31-2023 End: 05-31-2023 ambulatory Vinnie Stewart Other [facility] Other Start: 05-31-2023 Telephone encounter Vinnie Palomino [facility] [place] Start: 05-18-2023 End: 05-18-2023 ambulatory Vinnie Stewart Other [facility] Other Start: 05-18-2023 Telephone encounter Vinnie ROSALES [facility] [place] Start: 05-08-2023 End: 05-08-2023 ambulatory Vincentaddison Manzano Other [facility] Other Start: 05-08-2023 Telephone encounter Vincentaddison Galloway [facility] Start: 05-02-2023 End: 05-02-2023 ambulatory Brittnee Spain Other [facility] Other Start: 05-02-2023 Nursing evaluation o f patient and report Brittnee Spain [facility] Start: 04-20-2023 End: 04-20-2023 ambulatory Vinnie Stewart Other [facility] Other Start: 04-20-2023 Telephone encounter Vinnie [facility]om[facility] Start: 04-19-2023 End: 04-19-2023 ambulatory Simba Jac Other [facility] Other Start: 04-19-2023 Office outpatient visit 15 minutes Gisselle Dickey [facility] Start: 04-19-2023 Office outpatient visit 25 minutes Simba Jac [facility] Start: 04-18-2023 End: 04-18-2023 ambulatory Vinnie Stewart Other [facility] Other Start: 04-18-2023 Telephone encounter Vinnie Palom[facility] Start: 04-17-2023 Telephone encounter Vinnie Palomino [facility] [place] Start: 04-17-2023 End: 04-17-2023 ambulatory [facility] Facility:[facility] Start: 04-13-2023 End: 04-13-2023 ambulatory Simba Jac Other [facility] Other Start: 04-13-2023 Telephone encounter Simba Jac [facility] Start: 04-11-2023 End: 04-12-2023 ambulatory SIMBA JAC Facility: Start: 04-02-2023 End: 04-03-2023 ambulatory [facility] [employer] Other Start: 04-02-2023 Telephone encounter Vinnie Palomino [facility] [place] Start: 03-27-2023 End: 03-28-[address] DEEPAK FOURNIER . [facility] Other Start: 03-27-2023 Telephone encounter Brittnee [facility] Start: 03-21-2023 End: 03-21-2023 ambulatory DAHIANA BELCHER [employer] Other Start: 03-21-2023 Office outpatient visit 15 minutes Vinnie Stewart [facility] [place] Start: 03-19-2023 Telephone encounter Vinnie [facility]om[facility] Start: 03-19-2023 End: 04-18-2023 ambulatory SHAIKH Jorge L Y[facility] [employer] Other Start: 02-27-2023 End: 02-27-2023 ambulatory Vinnie Stewart Other [employer] Other Start: 02-27-2023 Telephone encounter Vinnie Palomino [facility] [place] Start: 02-21-2023 End: 02-21-2023 ambulatory Yakov To Facility:[facility] Start: 02-21-2023 Office outpatient visit 15 minutes Vinnie Stewart [facility] [place] Start: 02-21-2023 End: 02-21-2023 ambulatory DO Vinnie Stewart Work Phone: [facility] Work Phone: Start: 02-21-2023 End: 02-21-2023 Patient encounter procedure DO Vinnie Stewart Work Phone: [facility] [place] Work Phone: Start: 02-20-2023 End: 02-20-2023 ambulatory Vinnie Stewart Other [facility] Other Start: 02-20-2023 Telephone encounter Vinnie Palomino [facility] [place] Start: 02-19-2023 End: 03-16-2023 ambulatory SHAIKH Jorge L YU Facility: Start: 02-13-2023 End: 02-14-2023 Evaluation and management of inpatient Vinnie Stewart Facility:[facility] Start: 02-13-2023 End: 02-14-2023 Evaluation and management of inpatient DO Vinnie Stewart Work Phone: [facility] Work Phone: Start: 02-13-2023 Registered Recurring DO [facility] Work Phone: Start: 02-13-2023 End: 02-13-2023 ambulatory Vinnie Stewart Other [facility] Other Start: 02-13-2023 Telephone encounter Vinnie [facility] [place] Start: 02-09-2023 End: 02-09-2023 ambulatory Vinnie Stewart Other [facility] Other Start: 02-09-2023 Office outpatient visit 15 minutes Vinnie Stewart [facility] [place] Start: 02-05-2023 End: 02-05-2023 ambulatory Vinnie Stewart Other [facility] Other Start: 02-05-2023 Telephone encounter Vinnie [facility] [place] Start: 01-30-2023 End: 01-30-2023 ambulatory Vinnie Stewart Other [facility] Other Start: 01-30-2023 Telephone encounter Vinnie [facility] [place] Start: 01-29-2023 End: 01-30-2023 ambulatory [facility] Facility: Start: 01-29-2023 End: 01-29-2023 ambulatory [facility] Start: 01-17-2023 Office outpatient visit 15 minutes Vinnie Stewart [facility] [place] Start: 01-17-2023 End: 02-16-2023 ambulatory SHAIKH Jorge L YU [facility] Other Start: 01-16-2023 End: 01-16-2023 ambulatory Vinnie Stewart Other [facility] Other Start: 01-16-2023 Telephone encounter Vinnie [facility] [place] Start: 01-05-2023 End: 01-11-2023 Evaluation and management of inpatient NIK BUNN . Facility:H1 Start: 01-05-2023 ambulatory [facility] Start: 01-02-2023 End: 01-02-2023 ambulatory CANDELARIA WEATHERS . Facility:H1 Start: 01-02-2023 End: 01-03-2023 ambulatory [facility] Facility:H1 Start: 12-26-2022 End: 12-26-2022 ambulatory [facility] Start: 12-26-2022 End: 12-27-2022 ambulatory [facility] Facility:H1 Start: 12-22-2022 End: 12-22-2022 ambulatory Vinnie Stewart Other [facility] Other Start: 12-22-2022 Telephone encounter Vinnie [facility] [place] Start: 12-21-2022 ambulatory [facility] Start: 12-20-2022 End: 01-17-2023 ambulatory SHAIKH Jorge L YU Facility:H1 Start: 12-19-2022 Telephone encounter Vinnie [facility] [place] Start: 12-19-2022 End: 12-19-2022 ambulatory [facility] Other Start: 12-14-2022 End: 12-14-2022 ambulatory Vinnie Stewart Other [facility] Other Start: 12-14-2022 Telephone encounter Vinnie [facility] [place] Start: 12-12-2022 End: 12-12-2022 ambulatory Brittnee Hodgsonlouisa Other [facility] Other Start: 12-12-2022 Nursing evaluation o f patient and report Brittnee Spain [facility] Start: 12-11-2022 Telephone encounter Vinnie [facility] [place] Start: 12-11-2022 End: 12-11-2022 ambulatory KODI MYERS [facility] [employer] Other Start: 12-04-2022 End: 12-04-2022 ambulatory DO Vinnie Stewart Work Phone: [facility] Work Phone: Start: 12-04-2022 End: 12-04-2022 Registered Recurring DO Vinnie Setwart Work Phone: [facility] Work Phone: Start: 12-01-2022 End: 12-01-2022 ambulatory CHAR [facility] Start: 11-29-2022 End: 11-29-2022 ambulatory Vinnie Stewart Other [employer] Other Start: 11-29-2022 Telephone encounter [facility] Start: 11-27-2022 End: 11-27-2022 ambulatory Vinnie Stewart Other [facility] Other Start: 11-27-2022 Telephone encounter [facility]innie [facility] Start: 11-20-2022 End: 12-20-2022 ambulatory Jorge L GIGI Facility: Start: 11-15-2022 ambulatory JORJE [facility] Start: 11-14-2022 End: 11-15-[address] [facility] [employer] Other Start: 11-14-2022 Telephone encounter [facility]innie [facility] Start: 11-08-2022 Emergency department patient visit [facility] Start: 11-08-2022 End: 11-11-2022 Evaluation and management of inpatient VENKATESH [facility] Start: 11-07-2022 (DM) Diabetes Brittnee [facility] Start: 11-07-2022 End: 11-07-2022 ambulatory Brittnee Spain Other [facility] Other Start: 11-07-2022 Registered Recurring DO Vinnie Stewart Work Phone: [facility] Work Phone: Start: 11-01-2022 End: 11-01-2022 ambulatory Brittnee Remalouisa Other [facility] Other Start: 11-01-2022 Telephone encounter Brittnee harrington [facility] Start: 10-31-2022 End: 10-31-2022 ambulatory Vinnie Stewart Other [facility] Other Start: 10-31-2022 Telephone encounter Vinnie ROSALES G [facility] Start: 10-27-2022 Telephone encounter Gisselle FRANCISCO [employer] Start: 10-27-2022 End: 10-28-2022 ambulatory BRYCE SHIRLEY [employer] Other Start: 10-19-2022 Evaluation and management of inpatient HO DAVISAMISH [facility] Start: 10-19-2022 Evaluation and management of inpatient ED [facility] Start: 10-19-2022 End: 11-19-2022 ambulatory SHAIKH Jorge L [place] Facility: Start: 10-18-2022 Evaluation and management of inpatient ABED [facility] Start: 10-18-2022 End: 10-24-2022 Evaluation and management of inpatient ELODIA RAMOSZANoreen [facility] Start: 10-18-2022 End: 10-18-2022 ambulatory BRYCE [facility] Start: 10-11-2022 End: 10-11-2022 ambulatory Brittnee Spain Other [facility] Other Start: 10-11-2022 Telephone encounter Britt[facility] Start: 10-09-2022 End: 10-09-2022 ambulatory Vinnie Stewart Other [facility] Other Start: 10-09-2022 Telephone encounter Vinnie [facility] Start: 10-05-2022 End: 10-05-2022 ambulatory Vinnie Stewart Other [facility] Other Start: 10-05-2022 Telephone encounter Vinnie [facility] [place] Start: 10-03-2022 End: 10-03-[address] BIANCA STUART Facility:H1 Start: 09-28-2022 End: 09-28-2022 ambulatory Simba Jac Other [facility] Other Start: 09-28-2022 Office outpatient visit 15 minutes Gisselle Dickey [facility] Start: 09-28-2022 Office outpatient visit 25 minutes Simba Jac [facility] Start: 09-27-2022 End: 09-27-2022 ambulatory Vinnie Stewart Other [facility] Other Start: 09-27-2022 Telephone encounter Vinnie [facility] [place] Start: 09-19-2022 End: 10-18-2022 ambulatory SHAIKH Jorge L YU Facility:H1 Start: 09-18-2022 Telephone encounter Brittnee merritt [facility] Start: 09-18-2022 End: 09-19-2022 ambulatory SIMBA JAC [facility] Other Start: 09-13-2022 End: 09-13-2022 ambulatory Vinnie Stewart Other [facility] Other Start: 09-13-2022 Office outpatient visit 15 minutes Vinnie [facility] [place] Start: 09-08-2022 End: 09-08-2022 ambulatory Vinnie Stewart Other [facility] Other Start: 09-08-2022 Telephone encounter Vinnie [facility] [place] Start: 08-31-2022 End: 08-31-2022 ambulatory Brittnee Spain Other [facility] Other Start: 08-31-2022 Telephone encounter Brittnee Matt [facility] Start: 08-21-2022 End: 08-21-2022 ambulatory Vinnie Stewart Other [facility] Other Start: 08-21-2022 Telephone encounter Vinnie [facility] [place] Start: 08-20-2022 End: 09-18-2022 ambulatory SHAIKH Jorge L LIMD Facility:H1 Start: 08-02-2022 End: 08-02-2022 ambulatory Vinnie Stewart Other [facility] Other Start: 08-02-2022 Telephone encounter Vinnie [facility] [place] Start: 07-31-2022 (DM) Diabetes Brittnee Judit [facility] Start: 07-31-2022 End: 07-31-2022 ambulatory Brittnee Spain Other [facility] Other Start: 07-20-2022 End: 08-19-2022 ambulatory BROWN H FAWWAD Facility:H1 Start: 07-19-2022 End: 07-20-2022 ambulatory MASSIMO SIMEON Facility:H1 Start: 07-18-2022 End: 07-18-2022 ambulatory Brittnee Spain Other [facility] Other Start: 07-18-2022 Telephone encounter Brittnee Remalouisa Matt [facility] Start: 07-11-2022 End: 07-11-2022 ambulatory Vinnie Stewart Other [facility] Other Start: 07-11-2022 Telephone encounter Vinnie [facility] [place] Start: 06-27-2022 End: 06-27-2022 ambulatory Vinnie Stewart Other [facility] Other Start: 06-27-2022 Telephone encounter Vinnie [facility] [place] Start: 06-23-2022 End: 06-24-2022 ambulatory [facility] Facility:H1 Start: 06-20-2022 End: 06-20-2022 ambulatory Vinnie Stewart Other [facility] Other Start: 06-20-2022 Office outpatient visit 15 minutes Vinnie [facility] [place] Start: 06-19-2022 Telephone encounter Brittnee merritt [facility] Start: 06-19-2022 End: 07-19-2022 ambulatory SHAIKH Jorge L LIMD [facility] Other Start: 06-13-2022 End: 06-16-2022 Evaluation and management of inpatient SHAIKH Jorge L LIMD Facility:H1 Start: 06-06-2022 End: 06-06-2022 ambulatory Vinnie Stewart Other [facility] Other Start: 06-06-2022 Telephone encounter Vinnie [facility] [place] Start: 06-01-2022 End: 06-02-2022 ambulatory [facility] Facility:H1 Start: 05-30-2022 End: 05-30-2022 ambulatory Vinnie Stewart Other [facility] Other Start: 05-30-2022 Telephone encounter Vinnie [facility] [place] Start: 05-25-2022 End: 05-26-2022 ambulatory [facility] Facility:H1 Start: 05-19-2022 End: 06-16-2022 ambulatory SHAIKH Jorge L VEGAWAD Facility:H1 Start: 05-18-2022 End: 05-19-2022 ambulatory [facility] Facility:H1 Start: 05-17-2022 End: 05-17-2022 ambulatory Brittnee Spain Other [facility] Other Start: 05-17-2022 Telephone encounter [facility] Start: 05-16-2022 End: 05-16-2022 ambulatory Vinnie Stewart Other [facility] Other Start: 05-16-2022 Telephone encounter Vinnie [facility] [place] Start: 05-08-2022 End: 05-10-2022 ambulatory VINNIE STEWART Facility:H1 Start: 05-04-2022 End: 05-04-2022 ambulatory Vinnie Stewart Other [facility] Other Start: 05-04-2022 Telephone encounter Vinnie [facility] [place] Start: 04-28-2022 End: 05-02-2022 Evaluation and management of inpatient SHAIKH Jorge L YU Facility:H1 Start: 04-26-2022 End: 04-26-2022 ambulatory Brittnee Spain Other [facility] Other Start: 04-26-2022 Telephone encounter Brittnee Matt [facility] Start: 04-25-2022 End: 04-25-2022 ambulatory Vinnie Stewart Other [facility] Other Start: 04-25-2022 Telephone encounter Vinnie [facility] [place] Start: 04-24-2022 End: 04-24-2022 ambulatory Vinnie Stewart Other [facility] Other Start: 04-24-2022 Telephone encounter Vinnie [facility] [place] Start: 04-10-2022 End: 04-10-2022 ambulatory Brittnee Spain Other [facility] Other Start: 04-10-2022 Telephone encounter Brittnee Matt [facility] Start: 03-21-2022 End: 03-21-2022 ambulatory Vinnie Setwart Other [facility] Other Start: 03-21-2022 Telephone encounter Vinnie ROSALES [facility] [place] Start: 03-17-2022 End: 03-17-2022 ambulatory Vinnie Stewart Other [facility] Other Start: 03-17-2022 Telephone encounter Vinnie ROSALES [facility] [place] Start: 03-03-2022 End: 03-03-2022 ambulatory Vinnie Stewart Other [facility] Other Start: 03-03-2022 Telephone encounter Vinnie [facility] [place] Start: 03-02-2022 End: 03-02-2022 ambulatory Vinnie Stewart Other [facility] Other Start: 03-02-2022 Office outpatient visit 15 minutes Vinnie Stewart [facility] [place] Start: 02-20-2022 End: 02-20-2022 ambulatory Vinnie Stewart Other [facility] Other Start: 02-20-2022 Telephone encounter Vinnie [facility] [place] Start: 02-19-2022 End: 02-19-2022 ambulatory Ruthie Guzman Other [facility] Other Start: 02-19-2022 Office outpatient visit 15 minutes Ruthie Guzman [facility] Start: 02-19-2022 Telephone encounter Vinnie ROSALES [facility] Start: 02-10-2022 End: 02-10-2022 ambulatory Vinnie Stewart Other [facility] Other Start: 02-10-2022 Telephone encounter Vinnie [facility] [place] Start: 02-07-2022 End: 02-07-2022 ambulatory Balbir Ba Other [facility] Other Start: 02-07-2022 Office outpatient visit 25 minutes Balbir Ba [facility] Start: 02-06-2022 End: 02-06-2022 ambulatory Vinnie Stewart Other [facility] Other Start: 02-06-2022 Telephone encounter Vinnie [facility] [place] Start: 01-27-2022 End: 01-27-2022 ambulatory Vinnie Stewart Other [facility] Other Start: 01-27-2022 Telephone encounter [facility]innie [facility] [place] Start: 01-26-2022 End: 01-26-2022 ambulatory Vinnie Stewart Other [facility] Other Start: 01-26-2022 Telephone encounter Vinnie [facility] [place] Start: 01-11-2022 (DM) Diabetes Brittnee [facility] Start: 01-11-2022 End: 01-11-2022 ambulatory Brittnee Spain Other [facility] Other Start: 01-10-2022 End: 01-10-2022 ambulatory Vinnie Stewart Other [facility] Other Start: 01-10-2022 Telephone encounter [facility]innie [facility] [place] Start: 01-05-2022 End: 01-05-2022 ambulatory Brittnee Spain Other [facility] Other Start: 01-05-2022 Telephone encounter Brittnee harrington [facility] Start: 12-26-2021 End: 12-26-2021 ambulatory Vinnie Stewart Other [facility] Other Start: 12-26-2021 Telephone encounter Vinnie [facility] [place] Start: 12-20-2021 End: 12-20-2021 ambulatory Brittnee Spain Other [facility] Other Start: 12-20-2021 Telephone encounter Brittnee Spain F [facility] Start: 12-09-2021 End: 12-09-2021 ambulatory Vinnie Stewart Other [facility] Other Start: 12-09-2021 Telephone encounter Vinnie [facility] [place] Start: 11-30-2021 End: 11-30-2021 ambulatory Vinnie Stewart Other [facility] Other Start: 11-30-2021 Telephone encounter Vinnie [facility] [place] Start: 11-29-2021 End: 11-29-2021 ambulatory Brittnee Spain Other [facility] Other Start: 11-29-2021 Telephone encounter Brittnee Spain F [facility] Start: 11-28-2021 End: 11-28-2021 ambulatory Brittnee Spain Other [facility] Other Start: 11-28-2021 Telephone encounter Vinnie [facility] [place] Start: 11-21-2021 End: 11-21-2021 ambulatory Brittnee Spain Other [facility] Other Start: 11-21-2021 Telephone encounter Brittnee Spain F [facility] Start: 11-17-2021 End: 11-17-2021 ambulatory Vinnie Stewart Other [facility] Other Start: 11-17-2021 Telephone encounter Vinnie [facility] [place] Start: 11-16-2021 (DM) Diabetes Brittnee Remaly [facility] Start: 11-16-2021 End: 11-16-2021 ambulatory Brittnee Spain Other [facility] Other Start: 10-11-2021 End: 10-11-2021 ambulatory Vinnie Stewart Other [facility] Other Start: 10-11-2021 Telephone encounter Vinnie duron [facility] Start: 10-10-2021 End: 10-10-2021 ambulatory Vinnie Stewart Other [facility] Other Start: 10-10-2021 Telephone encounter Vinnie [facility] [place] Start: 10-05-2021 (DM) Diabetes Brittnee Judit [facility] Start: 10-05-2021 End: 10-05-2021 ambulatory Brittnee Spain Other [facility] Other Start: 09-26-2021 End: 09-26-2021 ambulatory Vinnie Stewart Other [facility] Other Start: 09-26-2021 Office outpatient visit 15 minutes Vinnie FRANCISCO [facility] [place] Start: 09-16-2021 End: 09-16-2021 ambulatory Brittnee Spain Other [facility] Other Start: 09-16-2021 Telephone encounter Brittnee merritts [facility] Start: 04-12-2021 End: 04-17-2021 Evaluation and management of inpatient [place] Facility:[facility] Start: 12-16-2020 End: 12-16-2020 Patient encounter procedure Vinnie Stewart -Sleep Lab Start: 12-06-2020 Registered Recurring Vinnie Stewart - Diabetes [facility] Start: 12-18-2019 End: 12-18-2019 Discharged Recurring Vinnie Stewart -[facility] [place] Start: 09-23-2019 End: 09-23-2019 Patient encounter procedure Vinnie Stewart -Sleep Lab Start: 02-24-2019 End: 02-24-2019 Admission to day surgery Vinnie Stewart -Digestive [facility] Procedures Date Procedure Procedure Detail Performing Clinician Start: 09-21-2023 Follow-up visit MASSIMO SIMEON Start: 08-23-2023 Follow-up visit MASSIMO SIMEON Start: 08-15-2023 Follow-up visit MASSIMO SIMEON Start: 06-05-2023 Follow-up visit MASSIMO SIMEON Start: 03-21-2023 Follow-up visit MASSIMO SIMEON Start: 02-13-2023 CT of head without contrast DO Vinnie Stewart Work Phone: Start: 02-13-2023 Plain chest X-ray DO Rhonda Stewart Work Phone: Start: 01-29-2023 Follow-up visit MASSIMO SIMEON Start: 01-05-2023 Follow-up visit MASSIMO SIMEON Start: 12-26-2022 Follow-up visit MASSIMO SIMEON Start: 12-11-2022 Follow-up visit MASSIMO SIMEON Start: 12-01-2022 Follow-up visit MASSIMO SIMEON Start: 10-18-2022 Follow-up visit MASSIMO SIMEON Start: 04-13-2021 INTRODUCE OF OTH THE RAP SUBST INTO RESP TRACT, VIA OPENING BALBIR STUBBS Start: 04-13-2021 ULTRASONOGRAPHY OF R IGHT AND LEFT HEART, TRANSESOPHAGEAL SAMER J OLIVER Start: 12-04-2019 Aerobic microbial culture Vinnie Stewart Start: 12-04-2019 End: 12-04-2019 Anaerobic microbial culture Vinnie eduardo Start: 12-04-2019 Investigation of tra nsfusion reaction Vinnie Stewart Start: 12-04-2019 X-ray of left foot Stephen Stewart Plan of Treatment Date Care Activity Detail Author Start: 02-23-2023 [facility] Start: 02-22-2023 [facility] Start: 02-21-2023 [facility] Start: 02-20-2023 [facility] Start: 02-19-2023 [facility] Start: 02-18-2023 Blood chemistry [facility] Start: 02-18-2023 [facility] Start: 02-17-2023 Blood chemistry [facility] Start: 02-17-2023 [facility] Start: 02-16-2023 Blood chemistry [facility] Start: 02-16-2023 [facility] Start: 02-15-2023 Blood chemistry [facility] Start: 02-15-2023 [facility] Start: 02-14-2023 Blood chemistry [facility] Start: 02-14-2023 End: 02-14-2023 [facility] Start: 02-14-2023 [facility] Start: 02-13-2023 Hospital admission [facility] Start: 02-13-2023 Physical therapy procedure [facility] Start: 02-13-2023 Referral to occupati onal therapist [facility] Start: 02-13-2023 [facility] Patient Education Heart Failure, Adult (DC) [facility] Work Phone: Patient referral [facility] Work Phone: [facility] Immunizations Immunization Date Immunization Notes Care Provider Fa cili 08-23-2021 COVID-19 Vaccine Pfizer - Documentation Purposes Only Vinnie Stewart Other [facility] Other 08-10-2021 influenza, seasonal, injectable Vinnie Stewart Other [facility] Other 01-14-2021 COVID-19 Vaccine Pfizer - Documentation Purposes Only Vinnie Stewart Other [facility] Other 01-04-2021 COVID-19 Vaccine Moderna - Documentation Purposes Only Vinnie Stewart Other [facility] Other 12-24-2020 COVID-19 Vaccine Pfizer - Documentation Purposes Only Vinnie Stewart Other [facility] Other 10-19-2020 pneumococcal conjugate vaccine, 13 valent Vinnie Stewart Other [facility] Other 08-16-2018 zoster vaccine recombinant Vinnie Stewart Other [facility] Other 08-23-2016 pneumococcal polysaccharide vaccine, 23 valent Vinnie Stewart Other [facility] Other 08-21-2016 influenza, injectable, quadrivalent, contains preservative Vinnie Stewart Other [facility] Other NEGATED: Highlighted row has not occurred! 5 influenza, injectable, quadrivalent, contains preservative Patient Objection Vinnie Stewart Other [facility] Other Payers Date Payer Category Payer Medicare [id number] 54a [id number] 2019 Self-pay [id number] 1960 Medicaid [id number] 1959 Unknown [id number] 1954 Unknown [id number] 2.16.8 40.1.539091.3.579.2.647 1954 Unknown [id number] 2.16.84 0.1.735924.3.579.2.593 1954 Unknown [id number] 2.16.84 0.1.779700.3.579.2.593 1954 Unknown [id number] 2.16.84 0.1.134350.3.579.2.593 1954 Unknown [id number] 2.16.84 0.1.675639.3.579.2.593 1954 Unknown [id number] 2.16.84 0.1.796742.3.579.2.593 1954 Unknown [id number] 2.16.84 0.1.388398.3.579.2.593 1954 Unknown [id number] 2.16.84 0.1.537451.3.579.2.593 1954 Unknown [id number] 2.16.84 0.1.909916.3.579.2.593 1954 Unknown [id number] 2.16.84 0.1.162232.3.579.2.593 1954 Unknown [id number] 2.16.84 0.1.874461.3.579.2.593 1954 Unknown [id number] 2.16.84 0.1.388240.3.579.2.593 1954 Unknown [id number] 2.16.84 0.1.623849.3.579.2.593 1954 Unknown [id number] 2.16.84 0.1.392344.3.579.2.593 1954 Unknown [id number] 2.16.84 0.1.133156.3.579.2.593 1954 Unknown [id number] 2.16.84 0.1.220562.3.579.2.593 1954 Unknown [id number] 2.16.84 0.1.593077.3.579.2.593 1954 Unknown [id number] 2.16.84 0.1.870669.3.579.2.593 1954 Unknown [id number] 2.16.84 0.1.287049.3.579.2.593 1954 Unknown [id number] 2.16.84 0.1.791413.3.579.2.593 1954 Unknown [id number] 2.16.84 0.1.080282.3.579.2.593 1954 Unknown [id number] 2.16.84 0.1.808416.3.579.2.593 1954 Unknown [id number] 2.16.84 0.1.410179.3.579.2.593 1954 Unknown [id number] 2.16.84 0.1.417537.3.579.2.593 1954 Unknown [id number] 2.16.84 0.1.385883.3.579.2.593 1954 Unknown [id number] 2.16.84 0.1.413588.3.579.2.593 1954 Unknown [id number] 2.16.84 0.1.209646.3.579.2.593 1954 Unknown [id number] 2.16.84 0.1.933876.3.579.2.593 1954 Unknown [id number] 2.16.84 0.1.304820.3.579.2.593 1954 Unknown [id number] 2.16.84 0.1.263573.3.579.2.593 1954 Unknown [id number] 2.16.84 0.1.007252.3.579.2.593 1954 Unknown [id number] 2.16.84 0.1.249145.3.579.2.593 1954 Unknown [id number] 2.16.84 0.1.216119.3.579.2.593 1954 Unknown [id number] 2.16.84 0.1.181072.3.579.2.593 1954 Unknown [id number] 2.16. 840.1.506942.3.579.2.732 Unknown [id number] Unknown [id number] 2.16.8 40.1.072779.3.579.2.531 Unknown [id number] 2.16.8 40.1.687219.3.579.2.531 Unknown [id number] 2.16.8 40.1.560075.3.579.2.531 Unknown [id number] 2.16.8 40.1.480306.3.579.2.531 Social History Date Type Detail Facility Start: 12-18-2019 End: 02-13-2023 Tobacco smoking status WAIS Ex-smoker (finding) [facility] Start: 1955 Sex Assigned At Male F [facility] Sex Assigned At Sex Assigned At Bir th [employer] Other Medical Equipment Procedure Code Equipment Code Equipment Origin al Text Equipment Identifier Dates Pen [place] 32G X 4 MM Start: 03-21-2022 Goals Date Patient Goal Desired Activity /State Functional Status Date Assessment Result Facility 02-14-2023 Functional status Patient at Baseline [facility] Work Phone: Mental Status Date Assessment Result Facility 02-14-2023 Cognitive function Cognitive Sta tus Patient at Baseline [facility] Work Phone: Clinical Notes 04-18-2021 to 11-08-2023 Note Date & Type Note Facility 11-08-2023 History general N arrative - Reported Type Medical History Triple vessel CAD Medical History ischemic cardiomyopa thy with ejection fraction 10-15% Medical History Cardiac arrythmias w ith insertion of AICD device Medical History hypertension Medical History hyperlipidemia Medical History NIDDM Medical History COPD Medical History nicotine dependence Medical History cervical spinal stenosis Medical History hoarseness - mass re moved by Dr. 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 failure w/hypoxia, acute on systolic chronic HF Medical History [facility]- r ight great toe bleeding (not stopping) Medical History pneumonia-[facility] 06-05-2023 Medical History [facility]-7-2023 Medical History [id number]-[facility] Surgical History Cardiac catherization (07/2010) Surgical History AICD insertion (11/2010) Surgical History right sided heart cath - [place] 10/2013 Surgical History appendectomy Surgical History rt heart cath 05/11/16 Surgical History pacemaker 07/2016 Surgical History SKIN GRAFT-FROM LEFT LEG TO LEFT FOOT 10/2018 Surgical History LEFT SMALL TOE AMPUT ATION WITH SOME FOOT BONE 11/2018 Surgical History COLONOSCOPY AND EGD [facility] Surgical History amputation left fifth toe Surgical History Ankle I/D LEFT 01/2020 Surgical History Left heel skin graft 03/29/2020 Surgical History SKIN GRAFT TO LEFT FOOT 03/2020 Surgical History CATARACT REMOVED ON RIGHT EYE Surgical History CATARACT REMOVED FROM LEFT EYE 06/2021 Hospitalization History see surgical hx Hospitalization History rt. heart cath [facility] Stout- [facility] 05/11/16 Hospitalization History Water retention/ [facility] 02/2017 Hospitalization History [facility] 11/2017 Hospitalization History INFECTION IN LEF T SMALL TOE AND FOOT 11/2018 Hospitalization History [facility] -- ICU -- [place], SMALL WOUND ON LEFT FOOT 12/2019 Hospitalization History COPD [facility] [place] 12/2019 Hospitalization History Ankle wound 01/2020 Hospitalization History COVID 11/2020 Hospitalization History A-FIB, CHF, KIDNEY ISSUE S 03/2021 Hospitalization History [facility] 01/2023 Hospitalization History [facility]-2023 Hospitalization History [facility] x2 7-2 023 Hospitalization History [facility] 10-2 023 [facility] Other 12-19-2023 History general Narrative - Reported* Type Description Date Medical History Triple vessel CAD Medical History ischemic cardiomyopa thy with ejection fraction 10-15% Medical History Cardiac arrythmias with insertio n of AICD device Medical History hypertension Medical History hyperlipidemia Medical History NIDDM Medical History COPD Medical History nicotine dependence Medical History cervical spinal stenosis Medical History hoarseness - mass removed by Dr. 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 failure w/hypoxia, acute on systolic chronic HF Medical History [facility]- r ight great toe bleeding (not stopping) Medical History pneumonia-[facility] 06-05 Medical History [facility]-7-2023 Medical History [id number]-[facility] Surgical History Cardiac catherization (07/2010) Surgical History AICD insertion (11/2010) Surgical History right sided heart cath - [place] 10/2013 Surgical History appendectomy Surgical History rt heart cath 05/11/16 Surgical History pacemaker 07/2016 Surgical History SKIN GRAFT-FROM LEFT LEG TO LEF T FOOT 10/2018 Surgical History LEFT SMALL TOE AMPUTATION WITH SOME FOOT BONE 11/2018 Surgical History COLONOSCOPY AND EGD [facility] Surgical History amputation left fifth toe Surgical History Ankle I/D LEFT 01/2020 Surgical History Left heel skin graft 03/29/2020 Surgical History SKIN GRAFT TO LEFT FOOT 03/2020 Surgical History CATARACT REMOVED ON RIGHT EYE Surgical History CATARACT REMOVED FROM LEFT EYE 06/2021 Hospitalization History see surgical hx Hospitalization History rt. heart cath Rex Stout- [facility] 05/11/16 Hospitalization History Water retention/ [facility] 02/2017 Hospitalization History [facility] pital 11/2017 Hospitalization History INFECTION IN LEFT SMALL TOE AND FOOT 11/2018 Hospitalization History [facility] -- ICU -- COPD, SMAL L WOUND ON LEFT FOOT 12/2019 Hospitalization History COPD [facility] [place] 12/2019 Hospitalization History Ankle wound 01/2020 Hospitalization History COVID 11/2020 Hospitalization History A-FIB, CHF, KIDNEY ISSUE S 03/2021 Hospitalization History [facility] 01/2023 Hospitalization History [facility] discha rged 03-27-2023 Hospitalization History [facility] x2 7-2 [phone] Hospitalization History [facility] 10-2 023 [facility] Other 12-08-2023 History general Narrative - Reported* Type Description Date Medical History Triple vessel CAD Medical History ischemic cardiomyopa thy with ejection fraction 10-15% Medical History Cardiac arrythmias with insertio n of AICD device Medical History hypertension Medical History hyperlipidemia Medical History NIDDM Medical History COPD Medical History nicotine dependence Medical History cervical spinal stenosis Medical History hoarseness - mass removed by Dr. 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 failure w/hypoxia, acute on systolic chronic HF Medical History [facility]- r ight great toe bleeding (not stopping) Medical History pneumonia-[facility] 06-05 Medical History [facility]-7-2023 Medical History [id number]-[facility] Surgical History Cardiac catherization (07/2010) Surgical History AICD insertion (11/2010) Surgical History right sided heart cath - [place] 10/2013 Surgical History appendectomy Surgical History rt heart cath 05/11/16 Surgical History pacemaker 07/2016 Surgical History SKIN GRAFT-FROM LEFT LEG TO LEF T FOOT 10/2018 Surgical History LEFT SMALL TOE AMPUTATION WITH SOME FOOT BONE 11/2018 Surgical History COLONOSCOPY AND EGD [facility] Surgical History amputation left fifth toe Surgical History Ankle I/D LEFT 01/2020 Surgical History Left heel skin graft 03/29/2020 Surgical History SKIN GRAFT TO LEFT FOOT 03/2020 Surgical History CATARACT REMOVED ON RIGHT EYE Surgical History CATARACT REMOVED FROM LEFT EYE 06/2021 Hospitalization History see surgical hx Hospitalization History rt. heart cath Rex Stout- [facility] 05/11/16 Hospitalization History Water retention/ [facility] 02/2017 Hospitalization History [facility] 11/2017 Hospitalization History INFECTION IN LEFT SMALL TOE AND FOOT 11/2018 Hospitalization History [facility] -- ICU -- COPD, SMAL L WOUND ON LEFT FOOT 12/2019 Hospitalization History COPD [facility] [place] 12/2019 Hospitalization History Ankle wound 01/2020 Hospitalization History COVID 11/2020 Hospitalization History A-FIB, CHF, KIDNEY ISSUE S 03/2021 Hospitalization History [facility] 01/2023 Hospitalization History [facility] discha rged 03-27-2023 Hospitalization History [facility] x2 7-2 [phone] Hospitalization History [facility] 10-2 023 [facility] Other 12-06-2023 History general Narrative - Reported* Type Description Date Medical History Triple vessel CAD Medical History ischemic cardiomyopa thy with ejection fraction 10-15% Medical History Cardiac arrythmias with insertio n of AICD device Medical History hypertension Medical History hyperlipidemia Medical History NIDDM Medical History COPD Medical History nicotine dependence Medical History cervical spinal stenosis Medical History hoarseness - mass removed by Dr. 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 failure w/hypoxia, acute on systolic chronic HF Medical History [facility]- r ight great toe bleeding (not stopping) Medical History pneumonia-[facility] 06-05 Medical History [facility]-7-2023 Medical History [id number]-[facility] Surgical History Cardiac catherization (07/2010) Surgical History AICD insertion (11/2010) Surgical History right sided heart cath - [place] 10/2013 Surgical History appendectomy Surgical History rt heart cath 05/11/16 Surgical History pacemaker 07/2016 Surgical History SKIN GRAFT-FROM LEFT LEG TO LEF T FOOT 10/2018 Surgical History LEFT SMALL TOE AMPUTATION WITH SOME FOOT BONE 11/2018 Surgical History COLONOSCOPY AND EGD [facility] Surgical History amputation left fifth toe Surgical History Ankle I/D LEFT 01/2020 Surgical History Left heel skin graft 03/29/2020 Surgical History SKIN GRAFT TO LEFT FOOT 03/2020 Surgical History CATARACT REMOVED ON RIGHT EYE Surgical History CATARACT REMOVED FROM LEFT EYE 06/2021 Hospitalization History see surgical hx Hospitalization History rt. heart cath Rex Stout- [facility] 05/11/16 Hospitalization History Water retention/ [facility] 02/2017 Hospitalization History [facility] 11/2017 Hospitalization History INFECTION IN LEFT SMALL TOE AND FOOT 11/2018 Hospitalization History [facility] -- ICU -- COPD, SMAL L WOUND ON LEFT FOOT 12/2019 Hospitalization History COPD [facility] [place] 12/2019 Hospitalization History Ankle wound 01/2020 Hospitalization History COVID 11/2020 Hospitalization History A-FIB, CHF, KIDNEY ISSUE S 03/2021 Hospitalization History [facility] 01/2023 Hospitalization History [facility] discha rged 03-27-2023 Hospitalization History [facility] x2 7-2 [phone] Hospitalization History [facility] 10-2 023 [facility] [facility] [employer] Other 12-04-2023 Evaluation note* Encounter Date Diagnosis Assessment Notes Treatment Notes Treatment Clinical Notes Oct, Type 2 diabetes mellitus with hyperglycemia (ICD-10 - E11.65) [facility] [employer] Other 12-01-2023 Evaluation note* Encounter Date Diagnosis Assessment Notes Treatment Notes Treatment Clinical Notes Oct, Facet arthritis of lumbar region (ICD-10 - M46.96) [facility] [employer] Other 12-01-2023 History general Narrative - Reported* Type Description Date Medical History Triple vessel CAD Medical History ischemic cardiomyopa thy with ejection fraction 10-15% Medical History Cardiac arrythmias with insertio n of AICD device Medical History hypertension Medical History hyperlipidemia Medical History NIDDM Medical History COPD Medical History nicotine dependence Medical History cervical spinal stenosis Medical History hoarseness - mass removed by Dr. 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 failure w/hypoxia, acute on systolic chronic HF Medical History [facility]- r ight great toe bleeding (not stopping) Medical History pneumonia-[facility] 06-05 Medical History [facility]-7-2023 Medical History [id number]-[facility] Surgical History Cardiac catherization (07/2010) Surgical History AICD insertion (11/2010) Surgical History right sided heart cath - [place] 10/2013 Surgical History appendectomy Surgical History rt heart cath 05/11/16 Surgical History pacemaker 07/2016 Surgical History SKIN GRAFT-FROM LEFT LEG TO LEF T FOOT 10/2018 Surgical History LEFT SMALL TOE AMPUTATION WITH SOME FOOT BONE 11/2018 Surgical History COLONOSCOPY AND EGD [facility] Surgical History amputation left fifth toe Surgical History Ankle I/D LEFT 01/2020 Surgical History Left heel skin graft 03/29/2020 Surgical History SKIN GRAFT TO LEFT FOOT 03/2020 Surgical History CATARACT REMOVED ON RIGHT EYE Surgical History CATARACT REMOVED FROM LEFT EYE 06/2021 Hospitalization History see surgical hx Hospitalization History rt. heart cath Rex Stout- [facility] 05/11/16 Hospitalization History Water retention/ [facility] 02/2017 Hospitalization History [facility] 11/2017 Hospitalization History INFECTION IN LEFT SMALL TOE AND FOOT 11/2018 Hospitalization History [facility] -- ICU -- COPD, SMAL L WOUND ON LEFT FOOT 12/2019 Hospitalization History COPD [facility] [place] 12/2019 Hospitalization History Ankle wound 01/2020 Hospitalization History COVID 11/2020 Hospitalization History A-FIB, CHF, KIDNEY ISSUE S 03/2021 Hospitalization History [facility] 01/2023 Hospitalization History [facility] discha rged 03-27-2023 Hospitalization History [facility] x2 7-2 023 Hospitalization History [facility] 10-2 023 [facility] Other 11-20-2023 Evaluation note* Encounter Date Diagnosis Assessment Notes Treatment Notes Treatment Clinical Notes Sep, Type 2 diabetes mellitus with hyperglycemia (ICD-10 - E11.65) Patient in today with caregiver for review of blood glucose logs, food logs, and insulin dosing. Patient's Lucas reader was downloaded with ranges between lowest 146-400 highest from 09/30/23-10/08/23. Average reading 328 mg/dl. CGM active 37%. Time in ranges very high 83%, high 12%, target range 5%, low 0%, and very low 0%. Patient states they have been checking their blood sugars ac, hs with a glucose goal of 90-130 ac 120-180 hs. Patient does not know how to count carbs, but is able to determine amount of carbs based on meal size. Pt has been using Humalog U200 scale 5 units for small meal, 7 units for medicum size meal, and 7 units for large sized meal. Tresiba 49 units daily, Trulicity 4.5 mg weekly on Tuesdays, and Farxiga 10 mg po daily. Lucas report downloaded and discussed with JOIE Manuel. Pt states he typically consumes 2 eggs, 2 duggan strips, and 2 pieces of toast for breakfast, Me[employer] Whe[employer] frozen dinners for lunch daily, and a high carbed supper. Pt states he does snack throughout the day with different fruit such as oranges, apples, and strawberries. Patient to continue medication regimen, but change ICR from 1:7 to 1:5 ICR. Instructed pt to take Humalog U200 6 units for small meal, 12 units for medicum size meal, and 15 units for large meal. Written information was provided. Discussed meal planning examples and reviewed use of use of scale. Discussed covering snacks with Humaog U200. Pt and caregiver states understanding. Encouraged patient to check glucose before meals and bedtime, fingerstick when not wearing CGM. Pt denies any issues or problems with Lucas at this time. All questions and concerns addressed. Encouraged to follow up for next appointment with provider in 3 weeks. 45 minutes was spent on education by Lashell KARIMI, RN [facility] Other 11-16-2023 Evaluation note* Encounter Date Diagnosis Assessment Notes Treatment Notes Treatment Clinical Notes Sep, Type 2 diabetes mellitus with hyperglycemia (ICD-10 - E11.65) Adwoa came in today for download and Evaluation of his Lucas report after calling and stating earlier this week that his BGs have been high and he is out of Basaglar and nearly out of Tresiba. He failed to bring his meter or his Lucas reader to this visit. His BG was taken by Ayo Chung LPN and it was 439. Tyesha Spain APRN was notified and came to the room and spoke with the patient. Blood glucose levels have been severely elevated, encouraged emergency room for clinical management. It seems apparent that patient will defer, he is in the presence of his niece who understands my recommendations as well as patient. Will have him return to clinic for download with data within 2 weeks, hopeful to be able to help patient improve his glycemia. [facility] Other 11-07-2023 History general Narrative - Reported* Type Description Date Medical History Triple vessel CAD Medical History ischemic cardiomyopa thy with ejection fraction 10-15% Medical History Cardiac arrythmias with insertio n of AICD device Medical History hypertension Medical History hyperlipidemia Medical History NIDDM Medical History COPD Medical History nicotine dependence Medical History cervical spinal stenosis Medical History hoarseness - mass removed by Dr. 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 failure w/hypoxia, acute on systolic chronic HF Medical History [facility]- r ight great toe bleeding (not stopping) Medical History pneumonia-[facility] 06-05 Medical History [facility]-7-2023 Medical History [id number]-[facility] Surgical History Cardiac catherization (07/2010) Surgical History AICD insertion (11/2010) Surgical History right sided heart cath - [place] 10/2013 Surgical History appendectomy Surgical History rt heart cath 05/11/16 Surgical History pacemaker 07/2016 Surgical History SKIN GRAFT-FROM LEFT LEG TO LEF T FOOT 10/2018 Surgical History LEFT SMALL TOE AMPUTATION WITH SOME FOOT BONE 11/2018 Surgical History COLONOSCOPY AND EGD [facility] Surgical History amputation left fifth toe Surgical History Ankle I/D LEFT 01/2020 Surgical History Left heel skin graft 03/29/2020 Surgical History SKIN GRAFT TO LEFT FOOT 03/2020 Surgical History CATARACT REMOVED ON RIGHT EYE Surgical History CATARACT REMOVED FROM LEFT EYE 06/2021 Hospitalization History see surgical hx Hospitalization History rt. heart cath Rex Stout- [facility] 05/11/16 Hospitalization History Water retention/ [facility] 02/2017 Hospitalization History Observation-[facility] pital 11/2017 Hospitalization History INFECTION IN LEFT SMALL TOE AND FOOT 11/2018 Hospitalization History [facility] -- ICU -- COPD, SMAL L WOUND ON LEFT FOOT 12/2019 Hospitalization History COPD [facility] [place] 12/2019 Hospitalization History Ankle wound 01/2020 Hospitalization History COVID 11/2020 Hospitalization History A-FIB, CHF, KIDNEY ISSUE S 03/2021 Hospitalization History [facility] [facility] 01/2023 Hospitalization History [facility] discha rged 03-27-2023 Hospitalization History [facility] x2 7-2 023 Hospitalization History [facility] 10-2 023 [facility] [employer] [facility] Evaluation note* Encounter Date Diagnosis Assessment Notes Treatment Notes Treatment Clinical Notes Sep, Facet arthritis of lumbar region (ICD-10 - M46.96) [facility] Other 11-02-2023 History general Narrative - Reported* Type Description Date Medical History Triple vessel CAD Medical History ischemic cardiomyopa thy with ejection fraction 10-15% Medical History Cardiac arrythmias with insertio n of AICD device Medical History hypertension Medical History hyperlipidemia Medical History NIDDM Medical History COPD Medical History nicotine dependence Medical History cervical spinal stenosis Medical History hoarseness - mass removed by Dr. 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 failure w/hypoxia, acute on systolic chronic HF Medical History [facility]- r ight great toe bleeding (not stopping) Medical History pneumonia-[facility] 06-05 Medical History [facility]-7-2023 Medical History [id number] Surgical History Cardiac catherization (07/2010) Surgical History AICD insertion (11/2010) Surgical History right sided heart cath - [place] 10/2013 Surgical History appendectomy Surgical History rt heart cath 05/11/16 Surgical History pacemaker 07/2016 Surgical History SKIN GRAFT-FROM LEFT LEG TO LEF T FOOT 10/2018 Surgical History LEFT SMALL TOE AMPUTATION WITH SOME FOOT BONE 11/2018 Surgical History COLONOSCOPY AND EGD [facility] Surgical History amputation left fifth toe Surgical History Ankle I/D LEFT 01/2020 Surgical History Left heel skin graft 03/29/2020 Surgical History SKIN GRAFT TO LEFT FOOT 03/2020 Surgical History CATARACT REMOVED ON RIGHT EYE Surgical History CATARACT REMOVED FROM LEFT EYE 06/2021 Hospitalization History see surgical hx Hospitalization History rt. heart cath Rex Stout- [facility] 05/11/16 Hospitalization History Water retention/ [facility] 02/2017 Hospitalization History [facility] 11/2017 Hospitalization History INFECTION IN LEFT SMALL TOE AND FOOT 11/2018 Hospitalization History [facility] -- ICU -- COPD, SMAL L WOUND ON LEFT FOOT 12/2019 Hospitalization History COPD [facility] [place] 12/2019 Hospitalization History Ankle wound 01/2020 Hospitalization History COVID 11/2020 Hospitalization History A-FIB, CHF, KIDNEY ISSUE S 03/2021 Hospitalization History [facility] [facility] 01/2023 Hospitalization History [facility] discha rged 03-27-2023 Hospitalization History [facility] x2 [phone] Hospitalization History [facility] 10-2 023 [facility] Other 10-31-2023 Evaluation note* Encounter Date Diagnosis Assessment Notes Treatment Notes Treatment Clinical Notes Aug, Vitamin D deficiency (ICD-10 - E55.9) sees NEPHRO Aug, Type 2 diabetes mellitus with hyperglycemia (ICD-10 - E11.65) Doris Prajapati 09/18/2023 02:24:28 PM >BG 91 given 4 ozs juice Doris Prajapati 09/18/2023 04:06:46 PM >BG recheck 118 at 3pm 1. Uncontrolled a Type 2 diabetes with A1c of 9.3, previous hospitalization for asthma 81 toleration of A1c 7% range due to comorbidities 2. Post hospitalization and SNF records reviewed, MAR for SNF identified significantly reduced insulin. Patient's weight down approximately 10 pounds, does fluctuate due to heart failure. We will start patient on Tresiba U200 36 units once daily as extrapolated from SNF MAR, we did discuss reducing by 3 units if any time of day he runs under 100 consistently. We also discussed fixed Humalog dosings, small medium large extra-large 5, 7, 8, 12 units of Humalog U200. Continue Trulicity 4.5 mg subcu weekly and Farxiga 10 mg p.o. weekly. We will from return to clinic in 2 weeks for download as this is significantly different insulin needs and will need to be adjusted based on home environment CGM imperative for safety and simplicity, patient with poor dexterity, questionable hypoglycemia awareness. Must maintain simplicity and avoid low blood sugars. Research shows that stamina with the current regime may fatigue, as would outcomes and CGM is equitable compared to disease instability. All reviewed, written discharge provided 3. Patient is alert, oriented and receptive to making changes or counseling. also present and asks appropriate questions. Notes: Seen for 30 minutes for an assessment of current glucose pattern, changes in treatment plan, with greater than 50% of this time spent in counseling and coordination of care related to diabetes, risks, and benefits of treatment, medications, side effects, and counseling. Given handouts to reinforce concepts reviewed during counseling. TOPICS REVIEWED: 1. Time was spent reviewing: a. Basic concepts of diabetes, progressive beta cell , concepts of basal/bolus/correcti ve insulin requirements. Basal: The goal is fasting blood glucose of 90-130mg. IF fasting blood glucose starts to run under 100mg 3x's/ week, decrease dose by 10%. Bolus: The goal is to hold the blood glucose level steady meal to meal. If pt. is going to have increased physical activity after a meal, decrease the schedule meal dose prior to the activity by 30-50%. If pt. skips a meal do not take this dose. Correction: The goal is to correct an elevated glucose back into the 100-150mg range b. Nutrition: Concepts of healthy diet, encouraged to decrease saturated fat in diet and increase non-starchy vegetables and fruits in diet. BMI: Pt. needs to select one small change to decrease caloric intake or increase physical activity to help decrease weight. c. Correct treatment of hypoglycemia, carry a glucose source at all times on your person, in vehicles, and at bedside. Can use glucose tablets/4, four ounces of pop or juice equal to 15 G of carbohydrate. Blood glucose should be 100 mg/dl or higher when driving. d. ADA glucose goals for age and medical complexity reviewed e. Patient questions addressed 2. Activity/exercise: Encouraged to start any form of physical activity. Start low level and increase slowly to a minimal goal of 150 minutes/week. Limit activity to what is allowed by other issues such as cardiac, pulmonary or orthopedic restrictions. 3. Standards of care: Reminded to have an annual dilated eye exam, A1C every 3 months, urine testing for microalbumin once/year, check feet daily and report any cuts or sores that do not appear to be healing. 4. Meter: Plan to check blood glucose: Please check blood glucose levels 4 times/day. Back to back meals reveal effectiveness of bolus dosing. The blood glucose data is used to determine insulin doses and confirm symptoms for hypoglycemia and hyperglcyemia. The blood glucose data is used to determine insulin doses, and confirm symptoms for hypoglycemia and hyperglcyemia. 5. [facility]. Contact office if any issues or concerns with patterns of hypoglycemia, hyperglycemia, or diabetes medication issues. 6. Prescriptions: per patient no refills PAP will need review 09/2023. 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 use of insulin (ICD-10 - Z79.4) Aug, Vitamin B 12 deficiency (ICD-10 - E53.8) Aug, CKD (chronic kidney disease) stage 3, GFR 30-59 ml/min (ICD-10 - N18.3) keep f/u with nephrology Aug, Type 2 diabetes mellitus with diabetic neuropathy, unspecified (ICD-10 - E11.40) Aug, BMI 32.0-32.9,adult (ICD-10 - Z68.32) [facility] Other 10-31-2023 History general Narrative - Reported* Type Description Date Medical History Triple vessel CAD Medical History ischemic cardiomyopa thy with ejection fraction 10-15% Medical History Cardiac arrythmias with insertio n of AICD device Medical History hypertension Medical History hyperlipidemia Medical History NIDDM Medical History COPD Medical History nicotine dependence Medical History cervical spinal stenosis Medical History hoarseness - mass removed by Dr. 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 failure w/hypoxia, acute on systolic chronic HF Medical History [facility]- r ight great toe bleeding (not stopping) Medical History pneumonia-[facility] 06-05 Medical History [facility]-7-2023 Medical History [id number] Surgical History Cardiac catherization (07/2010) Surgical History AICD insertion (11/2010) Surgical History right sided heart cath - [place] 10/2013 Surgical History appendectomy Surgical History rt heart cath 05/11/16 Surgical History pacemaker 07/2016 Surgical History SKIN GRAFT-FROM LEFT LEG TO LEF T FOOT 10/2018 Surgical History LEFT SMALL TOE AMPUTATION WITH SOME FOOT BONE 11/2018 Surgical History COLONOSCOPY AND EGD [facility] Surgical History amputation left fifth toe Surgical History Ankle I/D LEFT 01/2020 Surgical History Left heel skin graft 03/29/2020 Surgical History SKIN GRAFT TO LEFT FOOT 03/2020 Surgical History CATARACT REMOVED ON RIGHT EYE Surgical History CATARACT REMOVED FROM LEFT EYE 06/2021 Hospitalization History see surgical hx Hospitalization History rt. heart cath Rex Stout- [facility] 05/11/16 Hospitalization History Water retention/ [facility] 02/2017 Hospitalization History [facility] pital 11/2017 Hospitalization History INFECTION IN LEFT SMALL TOE AND FOOT 11/2018 Hospitalization History [facility] -- ICU -- COPD, SMAL L WOUND ON LEFT FOOT 12/2019 Hospitalization History COPD [facility] [place] 12/2019 Hospitalization History Ankle wound 01/2020 Hospitalization History COVID 11/2020 Hospitalization History A-FIB, CHF, KIDNEY ISSUE S 03/2021 Hospitalization History [facility] [place] 01/2023 Hospitalization History [facility] discha rged 03-27-2023 Hospitalization History [facility] x2 7-2 [phone] Hospitalization History [facility] 10-2 023 [facility] [employer] Other 10-30-2023 Evaluation note* Encounter Date Diagnosis Assessment Notes Treatment Notes Treatment Clinical Notes Aug, Facet arthritis of lumbar region (ICD-10 - M46.96) [facility] Other 10-13-2023 History general Narrative - Reported* Type Description Date Medical History Triple vessel CAD Medical History ischemic cardiomyopa thy with ejection fraction 10-15% Medical History Cardiac arrythmias with insertio n of AICD device Medical History hypertension Medical History hyperlipidemia Medical History NIDDM Medical History COPD Medical History nicotine dependence Medical History cervical spinal stenosis Medical History hoarseness - mass removed by Dr. 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 failure w/hypoxia, acute on systolic chronic HF Medical History [facility]- r ight great toe bleeding (not stopping) Medical History pneumonia-[facility] 06-05 Medical History [facility]-7-2023 Surgical History Cardiac catherization (07/2010) Surgical History AICD insertion (11/2010) Surgical History right sided heart cath - [place] 10/2013 Surgical History appendectomy Surgical History rt heart cath 05/11/16 Surgical History pacemaker 07/2016 Surgical History SKIN GRAFT-FROM LEFT LEG TO LEF T FOOT 10/2018 Surgical History LEFT SMALL TOE AMPUTATION WITH SOME FOOT BONE 11/2018 Surgical History COLONOSCOPY AND EGD [facility] Surgical History amputation left fifth toe Surgical History Ankle I/D LEFT 01/2020 Surgical History Left heel skin graft 03/29/2020 Surgical History SKIN GRAFT TO LEFT FOOT 03/2020 Surgical History CATARACT REMOVED ON RIGHT EYE Surgical History CATARACT REMOVED FROM LEFT EYE 06/2021 Hospitalization History see surgical hx Hospitalization History rt. heart cath Rex Stuot- [facility] 05/11/16 Hospitalization History Water retention/ [facility] 02/2017 Hospitalization History [facility] 11/2017 Hospitalization History INFECTION IN LEFT SMALL TOE AND FOOT 11/2018 Hospitalization History [facility] -- ICU -- COPD, SMAL L WOUND ON LEFT FOOT 12/2019 Hospitalization History COPD [facility] [place] 12/2019 Hospitalization History Ankle wound 01/2020 Hospitalization History COVID 11/2020 Hospitalization History A-FIB, CHF, KIDNEY ISSUE S 03/2021 Hospitalization History [facility] [facility] 01/2023 Hospitalization History [facility] discha rged 03-27-2023 Hospitalization History [facility] x2 [phone] [facility] Other 10-12-2023 History general Narrative - Reported* Type Description Date Medical History Triple vessel CAD Medical History ischemic cardiomyopa thy with ejection fraction 10-15% Medical History Cardiac arrythmias with insertio n of AICD device Medical History hypertension Medical History hyperlipidemia Medical History NIDDM Medical History COPD Medical History nicotine dependence Medical History cervical spinal stenosis Medical History hoarseness - mass removed by Dr. 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 failure w/hypoxia, acute on systolic chronic HF Medical History [facility]- r ight great toe bleeding (not stopping) Medical History pneumonia-[facility] 06-05 Medical History [facility]-7-2023 Surgical History Cardiac catherization (07/2010) Surgical History AICD insertion (11/2010) Surgical History right sided heart cath - [place] 10/2013 Surgical History appendectomy Surgical History rt heart cath 05/11/16 Surgical History pacemaker 07/2016 Surgical History SKIN GRAFT-FROM LEFT LEG TO LEF T FOOT 10/2018 Surgical History LEFT SMALL TOE AMPUTATION WITH SOME FOOT BONE 11/2018 Surgical History COLONOSCOPY AND EGD [facility] Surgical History amputation left fifth toe Surgical History Ankle I/D LEFT 01/2020 Surgical History Left heel skin graft 03/29/2020 Surgical History SKIN GRAFT TO LEFT FOOT 03/2020 Surgical History CATARACT REMOVED ON RIGHT EYE Surgical History CATARACT REMOVED FROM LEFT EYE 06/2021 Hospitalization History see surgical hx Hospitalization History rt. heart cath Rex Stout- [facility] 05/11/16 Hospitalization History Water retention/ [facility] 02/2017 Hospitalization History [facility] 11/2017 Hospitalization History INFECTION IN LEFT SMALL TOE AND FOOT 11/2018 Hospitalization History [facility] -- ICU -- COPD, SMAL L WOUND ON LEFT FOOT 12/2019 Hospitalization History COPD [facility] [place] 12/2019 Hospitalization History Ankle wound 01/2020 Hospitalization History COVID 11/2020 Hospitalization History A-FIB, CHF, KIDNEY ISSUE S 03/2021 Hospitalization History [facility] [facility] 01/2023 Hospitalization History [facility] discha rged 03-27-2023 Hospitalization History [facility] x2 [phone] [facility]-05[facility] Evaluation note* Encounter Date Diagnosis Assessment Notes Treatment Notes Treatment Clinical Notes Aug, Facet arthritis of lumbar region (ICD-10 - M46.96) [facility] [employer] Other 09-27-2023 NoteCurrently stable*[facility]09-27-2023 NoteSending for labs today and pt to f/U with Dr Orr as scheduledUnAvita [facility]09-27-2023 [facility]Un[facility]-27-2023 NoteContinue Coreg- currently stable and no concerning symptomsUnAvita [facility]09-27-2023 [facility]Un[facility]-27-2023 [facility]Un[facility] 08-03-2023 History general Narrative - Reported* Type Description Date Medical History Triple vessel CAD Medical History ischemic cardiomyopa thy with ejection fraction 10-15% Medical History Cardiac arrythmias with insertio n of AICD device Medical History hypertension Medical History hyperlipidemia Medical History NIDDM Medical History COPD Medical History nicotine dependence Medical History cervical spinal stenosis Medical History hoarseness - mass removed by Dr. 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 failure w/hypoxia, acute on systolic chronic HF Medical History [facility]- r ight great toe bleeding (not stopping) Medical History pneumonia-[facility] 06-05 Medical History [facility]-7-2023 Surgical History Cardiac catherization (07/2010) Surgical History AICD insertion (11/2010) Surgical History right sided heart cath - [place] 10/2013 Surgical History appendectomy Surgical History rt heart cath 05/11/16 Surgical History pacemaker 07/2016 Surgical History SKIN GRAFT-FROM LEFT LEG TO LEF T FOOT 10/2018 Surgical History LEFT SMALL TOE AMPUTATION WITH SOME FOOT BONE 11/2018 Surgical History COLONOSCOPY AND EGD [facility] Surgical History amputation left fifth toe Surgical History Ankle I/D LEFT 01/2020 Surgical History Left heel skin graft 03/29/2020 Surgical History SKIN GRAFT TO LEFT FOOT 03/2020 Surgical History CATARACT REMOVED ON RIGHT EYE Surgical History CATARACT REMOVED FROM LEFT EYE 06/2021 Hospitalization History see surgical hx Hospitalization History rt. heart cath Rex Stout- [facility] 05/11/16 Hospitalization History Water retention/ [facility] 02/2017 Hospitalization History [facility] 11/2017 Hospitalization History INFECTION IN LEFT SMALL TOE AND FOOT 11/2018 Hospitalization History [facility] -- ICU -- COPD, SMAL L WOUND ON LEFT FOOT 12/2019 Hospitalization History COPD [facility] [place] 12/2019 Hospitalization History Ankle wound 01/2020 Hospitalization History COVID 11/2020 Hospitalization History A-FIB, CHF, KIDNEY ISSUE S 03/2021 Hospitalization History [facility] [place] 01/2023 Hospitalization History [facility] discha rged 03-27-2023 Hospitalization History [facility] x2 [phone] [facility] Other 09-08-2023 Evaluation note* Encounter Date Diagnosis Assessment Notes Treatment Notes Treatment Clinical Notes Jul, Acute cough (ICD-10 - R05.1) [facility] Other 09-08-2023 History general Narrative - Reported* Type Description Date Medical History Triple vessel CAD Medical History ischemic cardiomyopa thy with ejection fraction 10-15% Medical History Cardiac arrythmias with insertio n of AICD device Medical History hypertension Medical History hyperlipidemia Medical History NIDDM Medical History COPD Medical History nicotine dependence Medical History cervical spinal stenosis Medical History hoarseness - mass removed by Dr. 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 failure w/hypoxia, acute on systolic chronic HF Medical History [facility]- r ight great toe bleeding (not stopping) Medical History pneumonia-[facility] 06-05 Medical History [facility]-7-2023 Surgical History Cardiac catherization (07/2010) Surgical History AICD insertion (11/2010) Surgical History right sided heart cath [place] 10/2013 Surgical History appendectomy Surgical History rt heart cath 05/11/16 Surgical History pacemaker 07/2016 Surgical History SKIN GRAFT-FROM LEFT LEG TO LEF T FOOT 10/2018 Surgical History LEFT SMALL TOE AMPUTATION WITH SOME FOOT BONE 11/2018 Surgical History COLONOSCOPY AND EGD [facility] Surgical History amputation left fifth toe Surgical History Ankle I/D LEFT 01/2020 Surgical History Left heel skin graft 03/29/2020 Surgical History SKIN GRAFT TO LEFT FOOT 03/2020 Surgical History CATARACT REMOVED ON RIGHT EYE Surgical History CATARACT REMOVED FROM LEFT EYE 06/2021 Hospitalization History see surgical hx Hospitalization History rt. heart cath [facility] Stout- [facility] 05/11/16 Hospitalization History Water retention/ [facility] 02/2017 Hospitalization History [facility] 11/2017 Hospitalization History INFECTION IN LEFT SMALL TOE AND FOOT 11/2018 Hospitalization History [facility] -- ICU -- COPD, SMAL L WOUND ON LEFT FOOT 12/2019 Hospitalization History COPD [facility] [place] 12/2019 Hospitalization History Ankle wound 01/2020 Hospitalization History COVID 11/2020 Hospitalization History A-FIB, CHF, KIDNEY ISSUE S 03/2021 Hospitalization History [facility] [place] 01/2023 Hospitalization History [facility] discha rged 03-27-2023 Hospitalization History [facility] [phone] [facility] Other 09-01-2023 Evaluation note* Encounter Date Diagnosis Assessment Notes Treatment Notes Treatment Clinical Notes Jul, Facet arthritis of lumbar region (ICD-10 - M46.96) [facility] Other 09-01-2023 History general Narrative - Reported* Type Description Date Medical History Triple vessel CAD Medical History ischemic cardiomyopa thy with ejection fraction 10-15% Medical History Cardiac arrythmias with insertio n of AICD device Medical History hypertension Medical History hyperlipidemia Medical History NIDDM Medical History COPD Medical History nicotine dependence Medical History cervical spinal stenosis Medical History hoarseness - mass removed by Dr. 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 failure w/hypoxia, acute on systolic chronic HF Medical History [facility]- r ight great toe bleeding (not stopping) Medical History pneumonia-[facility] 06-05 Medical History [facility]-7-2023 Surgical History Cardiac catherization (07/2010) Surgical History AICD insertion (11/2010) Surgical History right sided heart cath - [place] 10/2013 Surgical History appendectomy Surgical History rt heart cath 05/11/16 Surgical History pacemaker 07/2016 Surgical History SKIN GRAFT-FROM LEFT LEG TO LEF T FOOT 10/2018 Surgical History LEFT SMALL TOE AMPUTATION WITH SOME FOOT BONE 11/2018 Surgical History COLONOSCOPY AND EGD NORRIS Surgical History amputation left fifth toe Surgical History Ankle I/D LEFT 01/2020 Surgical History Left heel skin graft 03/29/2020 Surgical History SKIN GRAFT TO LEFT FOOT 03/2020 Surgical History CATARACT REMOVED ON RIGHT EYE Surgical History CATARACT REMOVED FROM LEFT EYE 06/2021 Hospitalization History see surgical hx Hospitalization History rt. heart cath Rex Stout- [facility] 05/11/16 Hospitalization History Water retention/ [facility] 02/2017 Hospitalization History [facility] 11/2017 Hospitalization History INFECTION IN LEFT SMALL TOE AND FOOT 11/2018 Hospitalization History [facility] -- ICU -- COPD, SMAL L WOUND ON LEFT FOOT 12/2019 Hospitalization History COPD [facility] [place] 12/2019 Hospitalization History Ankle wound 01/2020 Hospitalization History COVID 11/2020 Hospitalization History A-FIB, CHF, KIDNEY ISSUE S 03/2021 Hospitalization History [facility] [place] 01/2023 Hospitalization History [facility] discha rged 03-27-2023 Hospitalization History [facility] [phone] [facility] Other 08-31-2023 Evaluation note* Encounter Date Diagnosis Assessment Notes Treatment Notes Treatment Clinical Notes Jun, Chronic systolic congestive heart failure (ICD-10 - I50.22) [facility] Other 08-24-2023 History general Narrative - Reported* Type Description Date Medical History Triple vessel CAD Medical History ischemic cardiomyopa thy with ejection fraction 10-15% Medical History Cardiac arrythmias with insertio n of AICD device Medical History hypertension Medical History hyperlipidemia Medical History NIDDM Medical History COPD Medical History nicotine dependence Medical History cervical spinal stenosis Medical History hoarseness - mass removed by Dr. 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 failure w/hypoxia, acute on systolic chronic HF Medical History [facility]- r ight great toe bleeding (not stopping) Medical History pneumonia-[facility] 06-05 Medical History [facility]-7-2023 Surgical History Cardiac catherization (07/2010) Surgical History AICD insertion (11/2010) Surgical History right sided heart cath [place] 10/2013 Surgical History appendectomy Surgical History rt heart cath 05/11/16 Surgical History pacemaker 07/2016 Surgical History SKIN GRAFT-FROM LEFT LEG TO LEF T FOOT 10/2018 Surgical History LEFT SMALL TOE AMPUTATION WITH SOME FOOT BONE 11/2018 Surgical History COLONOSCOPY AND EGD [facility]RIS Surgical History amputation left fifth toe Surgical History Ankle I/D LEFT 01/2020 Surgical History Left heel skin graft 03/29/2020 Surgical History SKIN GRAFT TO LEFT FOOT 03/2020 Surgical History CATARACT REMOVED ON RIGHT EYE Surgical History CATARACT REMOVED FROM LEFT EYE 06/2021 Hospitalization History see surgical hx Hospitalization History rt. heart cath Rex Stout- [facility] 05/11/16 Hospitalization History Water retention/ [facility] 02/2017 Hospitalization History [facility] 11/2017 Hospitalization History INFECTION IN LEFT SMALL TOE AND FOOT 11/2018 Hospitalization History [facility] -- ICU -- COPD, SMAL L WOUND ON LEFT FOOT 12/2019 Hospitalization History COPD [facility] [place] 12/2019 Hospitalization History Ankle wound 01/2020 Hospitalization History COVID 11/2020 Hospitalization History A-FIB, CHF, KIDNEY ISSUE S 03/2021 Hospitalization History [facility] [place] 01/2023 Hospitalization History [facility] discha rged 03-27-2023 Hospitalization History [facility] [phone] [facility] Other 08-11-2023 Evaluation note* Encounter Date Diagnosis Assessment Notes Treatment Notes Treatment Clinical Notes Jun, Chronic systolic congestive heart failure (ICD-10 - I50.22) Continue close follow-up with cardiology as they continue to manage his medications Jun, Unsteady gait (ICD-10 - R26.81) He is now able to use his walker at all times at home, this should improve his safety significantly. His unsteady gait is multifactorial, a large portion of this is related to diabetic neuropathy [facility] Other 08-11-2023 Evaluation note* Encounter Date Diagnosis Assessment Notes Treatment Notes Treatment Clinical Notes Jun, Vitamin D deficiency (ICD-10 - E55.9) sees NEPHRO Jun, Type 2 diabetes mellitus with hyperglycemia (ICD-10 - E11.65) 1. Controlled a Type 2 diabetes with A1c of 7.9, previous 6.7. Goal 7% range secondary to comorbid conditions. Minimal low. Toleration of A1c under 8.0% due to comorbidities recent hospitalization with alteration in insulin dosing. His GMI today cannot be calculated. 2. Presented today for diabetes follow-up. He continues with Trulicity 4.5 mg subcu q. Sunday, Farxiga 10 mg p.o. daily for diabetes concomitant heart failure. He is on Basaglar, we will maintain his morning dose to 48 units, reducing evening dose to 36 units for some a.m. lows. We will also decrease his fixed dosing by meal size, he will take 27 units for a small meal, 30 units for a medium meal, 33 units for a large meal. Written instructions have been given. Corrective scale complex and correction considered in carb dosing. CGM imperative for safety and simplicity, patient with poor dexterity, questionable hypoglycemia awareness. Must maintain simplicity and avoid low blood sugars. Presented today with elevation in blood sugar, did not treat breakfast due to concern for low, lucas at end of appointment 256. He will treat his next meal. We will have him return to clinic in 8 weeks to assure mitigation of lows. Research shows that stamina with the current regime may fatigue, as would outcomes and CGM is equitable compared to disease instability. All reviewed, written discharge provided 3. Patient is alert, oriented and receptive to making changes or counseling. also present and asks appropriate questions. Notes: Seen for 30 minutes for an assessment of current glucose pattern, changes in treatment plan, with greater than 50% of this time spent in counseling and coordination of care related to diabetes, risks, and benefits of treatment, medications, side effects, and counseling. Given handouts to reinforce concepts reviewed during counseling. TOPICS REVIEWED: 1. Time was spent reviewing: a. Basic concepts of diabetes, progressive beta cell , concepts of basal/bolus/correcti ve insulin requirements. Basal: The goal is fasting blood glucose of 90-130mg. IF fasting blood glucose starts to run under 100mg 3x's/ week, decrease dose by 10%. Bolus: The goal is to hold the blood glucose level steady meal to meal. If pt. is going to have increased physical activity after a meal, decrease the schedule meal dose prior to the activity by 30-50%. If pt. skips a meal do not take this dose. Correction: The goal is to correct an elevated glucose back into the 100-150mg range b. Nutrition: Concepts of healthy diet, encouraged to decrease saturated fat in diet and increase non-starchy vegetables and fruits in diet. BMI: Pt. needs to select one small change to decrease caloric intake or increase physical activity to help decrease weight. c. Correct treatment of hypoglycemia, carry a glucose source at all times on your person, in vehicles, and at bedside. Can use glucose tablets/4, four ounces of pop or juice equal to 15 G of carbohydrate. Blood glucose should be 100 mg/dl or higher when driving. d. ADA glucose goals for age and medical complexity reviewed e. Patient questions addressed 2. Activity/exercise: Encouraged to start any form of physical activity. Start low level and increase slowly to a minimal goal of 150 minutes/week. Limit activity to what is allowed by other issues such as cardiac, pulmonary or orthopedic restrictions. 3. Standards of care: Reminded to have an annual dilated eye exam, A1C every 3 months, urine testing for microalbumin once/year, check feet daily and report any cuts or sores that do not appear to be healing. 4. Meter: Plan to check blood glucose: Please check blood glucose levels 4 times/day. Back to back meals reveal effectiveness of bolus dosing. The blood glucose data is used to determine insulin doses and confirm symptoms for hypoglycemia and hyperglcyemia. The blood glucose data is used to determine insulin doses, and confirm symptoms for hypoglycemia and hyperglcyemia. 5. [facility]. Contact office if any issues or concerns with patterns of hypoglycemia, hyperglycemia, or diabetes medication issues. 6. Prescriptions: per patient no refills PAP will need review 09/2023. Jun, Dietary counseling and surveillance (ICD-10 - Z71.3) Learning About [employer] material was published to portal Jun, Hyperlipidemia (ICD-10 - E78.5) needs lipid panel- Jun, HTN (hypertension) (ICD-10 - I10) reasonable today Jun, USP current use of insulin (ICD-10 - Z79.4) Jun, Vitamin B 12 deficiency (ICD-10 - E53.8) Jun, CKD (chronic kidney disease) stage 3, GFR 30-59 ml/min (ICD-10 - N18.3) keep f/u with nephrology Jun, Type 2 diabetes mellitus with diabetic neuropathy, unspecified (ICD-10 - E11.40) Jun, BMI 32.0-32.9,adult (ICD-10 - Z68.32) [facility] Other 08-11-2023 History general Narrative - Reported* Type Description Date Medical History Triple vessel CAD Medical History ischemic cardiomyopa thy with ejection fraction 10-15% Medical History Cardiac arrythmias with insertio n of AICD device Medical History hypertension Medical History hyperlipidemia Medical History NIDDM Medical History COPD Medical History nicotine dependence Medical History cervical spinal stenosis Medical History hoarseness - mass removed by Dr. 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 failure w/hypoxia, acute on systolic chronic HF Medical History [facility]- r ight great toe bleeding (not stopping) Medical History pneumonia-[facility] 06-05 Medical History [facility]-7-2023 Surgical History Cardiac catherization (07/2010) Surgical History AICD insertion (11/2010) Surgical History right sided heart cath - [place] 10/2013 Surgical History appendectomy Surgical History rt heart cath 05/11/16 Surgical History pacemaker 07/2016 Surgical History SKIN GRAFT-FROM LEFT LEG TO LEF T FOOT 10/2018 Surgical History LEFT SMALL TOE AMPUTATION WITH SOME FOOT BONE 11/2018 Surgical History COLONOSCOPY AND EGD [facility] Surgical History amputation left fifth toe Surgical History Ankle I/D LEFT 01/2020 Surgical History Left heel skin graft 03/29/2020 Surgical History SKIN GRAFT TO LEFT FOOT 03/2020 Surgical History CATARACT REMOVED ON RIGHT EYE Surgical History CATARACT REMOVED FROM LEFT EYE 06/2021 Hospitalization History see surgical hx Hospitalization History rt. heart cath Rex Stout- [facility] 05/11/16 Hospitalization History Water retention/ [facility] 02/2017 Hospitalization History [facility] 11/2017 Hospitalization History INFECTION IN LEFT SMALL TOE AND FOOT 11/2018 Hospitalization History [facility] -- ICU -- COPD, SMAL L WOUND ON LEFT FOOT 12/2019 Hospitalization History COPD [facility] [place] 12/2019 Hospitalization History Ankle wound 01/2020 Hospitalization History COVID 11/2020 Hospitalization History A-FIB, CHF, KIDNEY ISSUE S 03/2021 Hospitalization History [facility] [place] 01/2023 Hospitalization History [facility] discha rged 03-27-2023 Hospitalization History [facility] [phone] [facility] Other 07-31-2023 Evaluation note* Encounter Date Diagnosis Assessment Notes Treatment Notes Treatment Clinical Notes May, Hypertensive heart disease with heart failure (ICD-10 - I11.0) As mentioned above, he needs a hospital bed for a multitude of reasons. He will continue his current medications and close follow-up with cardiology May, Facet arthritis of lumbar region (ICD-10 - M46.96) [facility] reviewed and no concerns, prescription sent, continue to use as needed and also monitor for side effects May, Diabetic neuropathy (ICD-10 - E11.40) We had a long discussion about trying to make the home less risky for falls. They will remove rugs and position a cane and an area of the home where he is unable to use his walker. He understands our concerns and states he will do a better job of using his cane and walker. He is aware that if he does not decrease his risk of falling he may not be able to stay at home [facility] Other 07-31-2023 History general Narrative - Reported* Type Description Date Medical History Triple vessel CAD Medical History ischemic cardiomyopa thy with ejection fraction 10-15% Medical History Cardiac arrythmias with insertio n of AICD device Medical History hypertension Medical History hyperlipidemia Medical History NIDDM Medical History COPD Medical History nicotine dependence Medical History cervical spinal stenosis Medical History hoarseness - mass removed by Dr. 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 failure w/hypoxia, acute on systolic chronic HF Medical History [facility]- r ight great toe bleeding (not stopping) Surgical History Cardiac catherization (07/2010) Surgical History AICD insertion (11/2010) Surgical History right sided heart cath - [place] 10/2013 Surgical History appendectomy Surgical History rt heart cath 05/11/16 Surgical History pacemaker 07/2016 Surgical History SKIN GRAFT-FROM LEFT LEG TO LEF T FOOT 10/2018 Surgical History LEFT SMALL TOE AMPUTATION WITH SOME FOOT BONE 11/2018 Surgical History COLONOSCOPY AND EGD [facility]RIS Surgical History amputation left fifth toe Surgical History Ankle I/D LEFT 01/2020 Surgical History Left heel skin graft 03/29/2020 Surgical History SKIN GRAFT TO LEFT FOOT 03/2020 Surgical History CATARACT REMOVED ON RIGHT EYE Surgical History CATARACT REMOVED FROM LEFT EYE 06/2021 Hospitalization History see surgical hx Hospitalization History rt. heart cath Rex Stout- [facility] 05/11/16 Hospitalization History Water retention/ [facility] 02/2017 Hospitalization History [facility] 11/2017 Hospitalization History INFECTION IN LEFT SMALL TOE AND FOOT 11/2018 Hospitalization History [facility] -- ICU -- COPD, SMAL L WOUND ON LEFT FOOT 12/2019 Hospitalization History COPD [facility] [place] 12/2019 Hospitalization History Ankle wound 01/2020 Hospitalization History COVID 11/2020 Hospitalization History A-FIB, CHF, KIDNEY ISSUE S 03/2021 Hospitalization History [facility] [place] 01/2023 Hospitalization History [facility] discha rged 03-27-2023 [facility] Encounter Date Diagnosis Assessment Notes Treatment Notes Treatment Clinical Notes Apr, Facet arthritis of lumbar region (ICD-10 - M46.96) [facility] Other 06-30-2023 History general Narrative - Reported* Type Description Date Medical History Triple vessel CAD Medical History ischemic cardiomyopa thy with ejection fraction 10-15% Medical History Cardiac arrythmias with insertio n of AICD device Medical History hypertension Medical History hyperlipidemia Medical History NIDDM Medical History COPD Medical History nicotine dependence Medical History cervical spinal stenosis Medical History hoarseness - mass removed by Dr. 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 failure w/hypoxia, acute on systolic chronic HF Medical History [facility]- r ight great toe bleeding (not stopping) Surgical History Cardiac catherization (07/2010) Surgical History AICD insertion (11/2010) Surgical History right sided heart cath - [place] 10/2013 Surgical History appendectomy Surgical History rt heart cath 05/11/16 Surgical History pacemaker 07/2016 Surgical History SKIN GRAFT-FROM LEFT LEG TO LEF T FOOT 10/2018 Surgical History LEFT SMALL TOE AMPUTATION WITH SOME FOOT BONE 11/2018 Surgical History COLONOSCOPY AND EGD [facility] Surgical History amputation left fifth toe Surgical History Ankle I/D LEFT 01/2020 Surgical History Left heel skin graft 03/29/2020 Surgical History SKIN GRAFT TO LEFT FOOT 03/2020 Surgical History CATARACT REMOVED ON RIGHT EYE Surgical History CATARACT REMOVED FROM LEFT EYE 06/2021 Hospitalization History see surgical hx Hospitalization History rt. heart cath Rex Stout- [facility] 05/11/16 Hospitalization History Water retention/ [facility] 02/2017 Hospitalization History [facility] 11/2017 Hospitalization History INFECTION IN LEFT SMALL TOE AND FOOT 11/2018 Hospitalization History [facility] -- ICU -- COPD, SMAL L WOUND ON LEFT FOOT 12/2019 Hospitalization History COPD [facility] [place] 12/2019 Hospitalization History Ankle wound 01/2020 Hospitalization History COVID 11/2020 Hospitalization History A-FIB, CHF, KIDNEY ISSUE S 03/2021 Hospitalization History [facility] [place] 01/2023 Hospitalization History [facility] discha rged 03-27-2023 [facility] Other 2023 History general Narrative - Reported* Type Description Date Medical History Triple vessel CAD Medical History ischemic cardiomyopa thy with ejection fraction 10-15% Medical History Cardiac arrythmias with insertio n of AICD device Medical History hypertension Medical History hyperlipidemia Medical History NIDDM Medical History COPD Medical History nicotine dependence Medical History cervical spinal stenosis Medical History hoarseness - mass removed by Dr. 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 failure w/hypoxia, acute on systolic chronic HF Medical History [facility]- r ight great toe bleeding (not stopping) Surgical History Cardiac catherization (07/2010) Surgical History AICD insertion (11/2010) Surgical History right sided heart cath - [facility] 10/2013 Surgical History appendectomy Surgical History rt heart cath 05/11/16 Surgical History pacemaker 07/2016 Surgical History SKIN GRAFT-FROM LEFT LEG TO LEF T FOOT 10/2018 Surgical History LEFT SMALL TOE AMPUTATION WITH SOME FOOT BONE 11/2018 Surgical History COLONOSCOPY AND EGD [facility] Surgical History amputation left fifth toe Surgical History Ankle I/D LEFT 01/2020 Surgical History Left heel skin graft 03/29/2020 Surgical History SKIN GRAFT TO LEFT FOOT 03/2020 Surgical History CATARACT REMOVED ON RIGHT EYE Surgical History CATARACT REMOVED FROM LEFT EYE 06/2021 Hospitalization History see surgical hx Hospitalization History rt. heart cath [facility]- [facility] 05/11/16 Hospitalization History Water retention/ [facility] 02/2017 Hospitalization History [facility] 11/2017 Hospitalization History INFECTION IN LEFT SMALL TOE AND FOOT 11/2018 Hospitalization History [facility] -- ICU -- COPD, SMAL L WOUND ON LEFT FOOT 12/2019 Hospitalization History COPD [facility] [place] 12/2019 Hospitalization History Ankle wound 01/2020 Hospitalization History COVID 11/2020 Hospitalization History A-FIB, CHF, KIDNEY ISSUE S 03/2021 Hospitalization History [facility] [place] [facility] 01/2023 Hospitalization History [facility] discha rged 03-27-2023 [facility] Other 06-14-2023 Evaluation note* Encounter Date Diagnosis Assessment Notes Treatment Notes Treatment Clinical Notes Apr, Type 2 diabetes mellitus with hyperglycemia (ICD-10 - E11.65) Adwoa came in today for download and evaluation of his Lucas report. He has not had a sensor on since 04/26/23 because it fell off and he doesn't get another one until May 07. He said that he uses his finger stick machine at home but didn't bring it with him. He has wounds on both of his legs and on his right foot which he said is being treated by the nurse and Wound care. He was able to tell me that he takes 48 units of Basaglar in the morning, and 46 in the evening, as ordered, and he takes 30 or 33 units of Humalog depending on meal size. It appears to me that when he takes his insulin before his meals his BG remains reasonably flat and when he takes it after the meal he gets a post-prandial spike. We discussed using 2 different insulin pens and having one at his desk where he eats sometimes and one at the dinner table, where he eats most of the time. This way he is reminded to take his insulin more often. He said that he is taking his Trulicity on Tuesdays and takes Farxiga 10 mg daily. His average BG during the 2 week period was 223, 23% in range, 50% high, and 27% very high. He had 0% low and only one instance where his BG dropped below 70 but it appears that the sensor was still warming up at that time and may have been inaccurate. He said that he has been having issues keeping sensors on. He was given 6 grif household worker to assist him with wearing the device. 45 minutes were spent evaluating the patient's report and discussing its findings with the patient by Shaw Rondon RN, [facility]. [facility] [employer] Other 06-01-2023 Evaluation note* Encounter Date Diagnosis Assessment Notes Treatment Notes Treatment Clinical Notes Apr, Diabetes mellitus wi th chronic kidney disease (ICD-10 - E11.22) Continue follow-up with DM clinic for DM management. He was taken off of the losartan due to the advanced CKD. Continue farxiga to slow down the progression of CKD. 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 His b/l serum creatinine is 1.8-2 mg/dL.. I discussed with him the importance of good DM and HTN control to slow down the progression of disease. His renal ultrasound showed mild atrophy of the left kidney with a left renal cyst and nonobstructive kidney stones. Apr, Benign arteriolar nephrosclerosis (ICD-10 - I12.9) Blood pressure is controlled but he appears to be euvolemic. Continue Current dose of lasix, metolazone and spironolactone I also advised him to limit the fluid intake to 50 ounces a day. Apr, Secondary hyperparathyroidism (ICD-10 - N25.81) MBD parameters including calcium phosphorus and vitamin D are within the goal Apr, Hypokalemia (ICD-10 - E87.6) He has a hypokalemia due to the diuretic induced renal potassium wasting. He was prescribed potassium chloride by me but just started couple of days ago. We will repeat the serum potassium in couple of days. Apr, Hyperuricemia (ICD-1 0 - E79.0) He has hyperuricemia due to the CKD and diuretics. Denies any recent gout flare. Will monitor without any medications. Apr, Leukocytosis (ICD-10 - D72.829) He has a persistent leukocytosis and currently follows with a hematology. [facility] Other 06-01-2023 Evaluation note* Encounter Date Diagnosis Assessment Notes Treatment Notes Treatment Clinical Notes Apr, Avulsion of skin of right lower leg, initial encounter (ICD-10 - S81.801A) Discussed diagnosis with patient today. Area cleaned and dressed today in office. Advised to keep on dressings for 48 hours. After 48 hours may wash twice a day with soap and water, keep covered during the day, keep open to air at nighttime. Advised patient to follow-up with PCP if signs/symptoms of infection occur. Immediate evaluation ER for signs/symptoms as discussed. Patient verbalizes understanding and is agreeable with treatment plan. [facility] Other 05-31-2023 Evaluation note* Encounter Date Diagnosis Assessment Notes Treatment Notes Treatment Clinical Notes March, Facet arthritis of lumbar region (ICD-10 - M46.96) [facility] Other 05-15-2023 History general Narrative - Reported* Type Description Date Medical History Triple vessel CAD Medical History ischemic cardiomyopa thy with ejection fraction 10-15% Medical History Cardiac arrythmias with insertio n of AICD device Medical History hypertension Medical History hyperlipidemia Medical History NIDDM Medical History COPD Medical History nicotine dependence Medical History cervical spinal stenosis Medical History hoarseness - mass removed by Dr. 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 failure w/hypoxia, acute on systolic chronic HF Surgical History Cardiac catherization (07/2010) Surgical History AICD insertion (11/2010) Surgical History right sided heart cath - [facility] 10/2013 Surgical History appendectomy Surgical History rt heart cath 05/11/16 Surgical History pacemaker 07/2016 Surgical History SKIN GRAFT-FROM LEFT LEG TO LEF T FOOT 10/2018 Surgical History LEFT SMALL TOE AMPUTATION WITH SOME FOOT BONE 11/2018 Surgical History COLONOSCOPY AND EGD [facility] Surgical History amputation left fifth toe Surgical History Ankle I/D LEFT 01/2020 Surgical History Left heel skin graft 03/29/2020 Surgical History SKIN GRAFT TO LEFT FOOT 03/2020 Surgical History CATARACT REMOVED ON RIGHT EYE Surgical History CATARACT REMOVED FROM LEFT EYE 06/2021 Hospitalization History see surgical hx Hospitalization History rt. heart cath Rex Stout- [facility] 05/11/16 Hospitalization History Water retention/ [facility] 02/2017 Hospitalization History [facility] 11/2017 Hospitalization History INFECTION IN LEFT SMALL TOE AND FOOT 11/2018 Hospitalization History [facility] -- ICU -- COPD, SMAL L WOUND ON LEFT FOOT 12/2019 Hospitalization History COPD [facility] [place] 12/2019 Hospitalization History Ankle wound 01/2020 Hospitalization History COVID 11/2020 Hospitalization History A-FIB, CHF, KIDNEY ISSUE S 03/2021 Hospitalization History [facility] [place] 01/2023 [facility]* Encounter Date Diagnosis Assessment Notes Treatment Notes Treatment Clinical Notes March, Abrasion of anterior right lower leg, initial encounter (ICD-10 - S80.811A) Given his wounds and history of diabetes, we will start antibiotic therapy. He sees the Coumadin clinic again tomorrow and he will let them know he is on Keflex March, Type 2 diabetes mellitus with diabetic neuropathy, unspecified (ICD-10 - E11.40) March, Acquired left foot drop (ICD-10 - M21.372) His left-sided foot drop is most likely due to diabetic neuropathy. He is not interested in additional lumbar imaging or another EMG. After discussion, we will start an AFO brace for the left side and see if this helps his mobility [facility] Other 05-03-2023 History general Narrative - Reported* Type Description Date Medical History Triple vessel CAD Medical History ischemic cardiomyopa thy with ejection fraction 10-15% Medical History Cardiac arrythmias with insertio n of AICD device Medical History hypertension Medical History hyperlipidemia Medical History NIDDM Medical History COPD Medical History nicotine dependence Medical History cervical spinal stenosis Medical History hoarseness - mass removed by Dr. 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 failure w/hypoxia, acute on systolic chronic HF Surgical History Cardiac catherization (07/2010) Surgical History AICD insertion (11/2010) Surgical History right sided heart cath - [facility] 10/2013 Surgical History appendectomy Surgical History rt heart cath 05/11/16 Surgical History pacemaker 07/2016 Surgical History SKIN GRAFT-FROM LEFT LEG TO LEF T FOOT 10/2018 Surgical History LEFT SMALL TOE AMPUTATION WITH SOME FOOT BONE 11/2018 Surgical History COLONOSCOPY AND EGD [facility] Surgical History amputation left fifth toe Surgical History Ankle I/D LEFT 01/2020 Surgical History Left heel skin graft 03/29/2020 Surgical History SKIN GRAFT TO LEFT FOOT 03/2020 Surgical History CATARACT REMOVED ON RIGHT EYE Surgical History CATARACT REMOVED FROM LEFT EYE 06/2021 Hospitalization History see surgical hx Hospitalization History rt. heart cath [facility]- [facility] 05/11/16 Hospitalization History Water retention/ [facility] 02/2017 Hospitalization History [facility] 11/2017 Hospitalization History INFECTION IN LEFT SMALL TOE AND FOOT 11/2018 Hospitalization History [facility] -- ICU -- COPD, SMAL L WOUND ON LEFT FOOT 12/2019 Hospitalization History COPD [facility] [place] 12/2019 Hospitalization History Ankle wound 01/2020 Hospitalization History COVID 11/2020 Hospitalization History A-FIB, CHF, KIDNEY ISSUE S 03/2021 Hospitalization History [facility] [place] 01/2023 [facility] Other 05-01-2023 Evaluation note* Encounter Date Diagnosis Assessment Notes Treatment Notes Treatment Clinical Notes March, Facet arthritis of lumbar region (ICD-10 - M46.96) [facility] Other 05-01-2023 History general Narrative - Reported* Type Description Date Medical History Triple vessel CAD Medical History ischemic cardiomyopa thy with ejection fraction 10-15% Medical History Cardiac arrythmias with insertio n of AICD device Medical History hypertension Medical History hyperlipidemia Medical History NIDDM Medical History COPD Medical History nicotine dependence Medical History cervical spinal stenosis Medical History hoarseness - mass removed by Dr. 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 failure w/hypoxia, COPD excacerbation [facility] Medical History 04/28/2022-Sepsis sec ./ Para influenza PNA multifocal-[facility] Medical History 05/08/2022-Increasing shortness of breath post recent Dx w/covid-19 Medical History 06/13/2022-Severe sep sis to Multifocal PNA, acute on chronic resp. failure w/hypoxia, acute on systolic chronic HF Surgical History Cardiac catherization (07/2010) Surgical History AICD insertion (11/2010) Surgical History right sided heart cath - [facility] 10/2013 Surgical History appendectomy Surgical History rt heart cath 05/11/16 Surgical History pacemaker 07/2016 Surgical History SKIN GRAFT-FROM LEFT LEG TO LEF T FOOT 10/2018 Surgical History LEFT SMALL TOE AMPUTATION WITH SOME FOOT BONE 11/2018 Surgical History COLONOSCOPY AND EGD [facility] Surgical History amputation left fifth toe Surgical History Ankle I/D LEFT 01/2020 Surgical History Left heel skin graft 03/29/2020 Surgical History SKIN GRAFT TO LEFT FOOT 03/2020 Surgical History CATARACT REMOVED ON RIGHT EYE Surgical History CATARACT REMOVED FROM LEFT EYE 06/2021 Hospitalization History see surgical hx Hospitalization History rt. heart cath [facility]out- [facility] 05/11/16 Hospitalization History Water retention/ [facility] 02/2017 Hospitalization History [facility] 11/2017 Hospitalization History INFECTION IN LEFT SMALL TOE AND FOOT 11/2018 Hospitalization History [facility] -- ICU -- COPD, SMAL L WOUND ON LEFT FOOT 12/2019 Hospitalization History COPD [facility] [place] 12/2019 Hospitalization History Ankle wound 01/2020 Hospitalization History COVID 11/2020 Hospitalization History A-FIB, CHF, KIDNEY ISSUE S 03/2021 Hospitalization History [facility] [place] 01/2023 [facility] Other 04-12-2023 History general Narrative - Reported* Type Description Date Medical History Triple vessel CAD Medical History ischemic cardiomyopa thy with ejection fraction 10-15% Medical History Cardiac arrythmias with insertio n of AICD device Medical History hypertension Medical History hyperlipidemia Medical History NIDDM Medical History COPD Medical History nicotine dependence Medical History cervical spinal stenosis Medical History hoarseness - mass removed by Dr. 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 failure w/hypoxia, acute on systolic chronic HF Surgical History Cardiac catherization (07/2010) Surgical History AICD insertion (11/2010) Surgical History right sided heart cath - [facility] 10/2013 Surgical History appendectomy Surgical History rt heart cath 05/11/16 Surgical History pacemaker 07/2016 Surgical History SKIN GRAFT-FROM LEFT LEG TO LEF T FOOT 10/2018 Surgical History LEFT SMALL TOE AMPUTATION WITH SOME FOOT BONE 11/2018 Surgical History COLONOSCOPY AND EGD [facility] Surgical History amputation left fifth toe Surgical History Ankle I/D LEFT 01/2020 Surgical History Left heel skin graft 03/29/2020 Surgical History SKIN GRAFT TO LEFT FOOT 03/2020 Surgical History CATARACT REMOVED ON RIGHT EYE Surgical History CATARACT REMOVED FROM LEFT EYE 06/2021 Hospitalization History see surgical hx Hospitalization History rt. heart cath [facility]- [facility] 05/11/16 Hospitalization History Water retention/ [facility] 02/2017 Hospitalization History [facility] 11/2017 Hospitalization History INFECTION IN LEFT SMALL TOE AND FOOT 11/2018 Hospitalization History [facility] -- ICU -- COPD, SMAL L WOUND ON LEFT FOOT 12/2019 Hospitalization History COPD [facility] [place] 12/2019 Hospitalization History Ankle wound 01/2020 Hospitalization History COVID 11/2020 Hospitalization History A-FIB, CHF, KIDNEY ISSUE S 03/2021 Hospitalization History [facility] [place] 01/2023 [facility] Other 04-11-2023 History general Narrative - Reported* Type Description Date Medical History Triple vessel CAD Medical History ischemic cardiomyopa thy with ejection fraction 10-15% Medical History Cardiac arrythmias with insertio n of AICD device Medical History hypertension Medical History hyperlipidemia Medical History NIDDM Medical History COPD Medical History nicotine dependence Medical History cervical spinal stenosis Medical History hoarseness - mass removed by Dr. 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 failure w/hypoxia, acute on systolic chronic HF Surgical History Cardiac catherization (07/2010) Surgical History AICD insertion (11/2010) Surgical History right sided heart cath - [facility] 10/2013 Surgical History appendectomy Surgical History rt heart cath 05/11/16 Surgical History pacemaker 07/2016 Surgical History SKIN GRAFT-FROM LEFT LEG TO LEF T FOOT 10/2018 Surgical History LEFT SMALL TOE AMPUTATION WITH SOME FOOT BONE 11/2018 Surgical History COLONOSCOPY AND EGD [facility] Surgical History amputation left fifth toe Surgical History Ankle I/D LEFT 01/2020 Surgical History Left heel skin graft 03/29/2020 Surgical History SKIN GRAFT TO LEFT FOOT 03/2020 Surgical History CATARACT REMOVED ON RIGHT EYE Surgical History CATARACT REMOVED FROM LEFT EYE 06/2021 Hospitalization History see surgical hx Hospitalization History rt. heart cath [facility]- [facility] 05/11/16 Hospitalization History Water retention/ [facility] 02/2017 Hospitalization History [facility] 11/2017 Hospitalization History INFECTION IN LEFT SMALL TOE AND FOOT 11/2018 Hospitalization History [facility] -- ICU -- COPD, SMAL L WOUND ON LEFT FOOT 12/2019 Hospitalization History COPD [facility] [place] 12/2019 Hospitalization History Ankle wound 01/2020 Hospitalization History COVID 11/2020 Hospitalization History A-FIB, CHF, KIDNEY ISSUE S 03/2021 Hospitalization History [facility] [place] 01/2023 [facility] Other 04-05-2023 Evaluation note* Encounter Date Diagnosis Assessment Notes Treatment Notes Treatment Clinical Notes Feb, Hypertensive heart disease with heart failure (ICD-10 - I11.0) His chronic medical problems appear to be stable at this time. He will continue close follow-up with cardiology and nephrology. He will continue his current medications. We will call him with his lab results once they are available. Feb, Chronic kidney disease, stage III (moderate) (ICD-10 - N18.30) Feb, Hypokalemia (ICD-10 - E87.6) [facility] Other 03-24-2023 Evaluation note* Encounter Date Diagnosis Assessment Notes Treatment Notes Treatment Clinical Notes Jan, Contusion of left shoulder, initial encounter (ICD-10 - S40.012A) Given that he only has mild pain on examination (palpation and range of motion testing) an x-ray is not indicated at this time. We discussed that the bruising he has is not surprising given his Coumadin and aspirin. Call the office with any worsening symptoms. For discomfort, he will continue the gabapentin, hydrocodone and he can use ice or heat to the area Jan, Facet arthritis of lumbar region (ICD-10 - M46.96) [facility] remains without concerns, continue medication as needed for pain. I attempted to send the prescription electronically but apparently there was a network failure so a printed prescription was provided [facility] Encounter Date Diagnosis Assessment Notes Treatment Notes Treatment Clinical Notes Jan, Chronic systolic congestive heart failure (ICD-10 - I50.22) Continue current medications, continue with daily weights. He is aware that he is to call cardiology first with any weight gain of 3+ pounds and if he is not able to contact anyone he can call here Jan, COPD (chronic obstructive pulmonary disease) (ICD-10 - J44.9) Jan, Facet arthritis of lumbar region (ICD-10 - M46.96) Continue current medication, OARRS reviewed [facility] Other 02-28-2023 Evaluation note* Encounter Date Diagnosis Assessment Notes Treatment Notes Treatment Clinical Notes Dec, Lumbar and sacral arthritis (ICD-10 - M48.9) [facility] Other 02-24-2023 History general Narrative - Reported* Type Description Date Medical History Triple vessel CAD Medical History ischemic cardiomyopa thy with ejection fraction 10-15% Medical History Cardiac arrythmias with insertio n of AICD device Medical History hypertension Medical History hyperlipidemia Medical History NIDDM Medical History COPD Medical History nicotine dependence Medical History cervical spinal stenosis Medical History hoarseness - mass removed by Dr. 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 failure w/hypoxia, acute on systolic chronic HF Surgical History Cardiac catherization (07/2010) Surgical History AICD insertion (11/2010) Surgical History right sided heart cath - [place] 10/2013 Surgical History appendectomy Surgical History rt heart cath 05/11/16 Surgical History pacemaker 07/2016 Surgical History SKIN GRAFT-FROM LEFT LEG TO LEF T FOOT 10/2018 Surgical History LEFT SMALL TOE AMPUTATION WITH SOME FOOT BONE 11/2018 Surgical History COLONOSCOPY AND EGD NORRIS Surgical History amputation left fifth toe Surgical History Ankle I/D LEFT 01/2020 Surgical History Left heel skin graft 03/29/2020 Surgical History SKIN GRAFT TO LEFT FOOT 03/2020 Surgical History CATARACT REMOVED ON RIGHT EYE Surgical History CATARACT REMOVED FROM LEFT EYE 06/2021 Hospitalization History see surgical hx Hospitalization History rt. heart cath [facility] St[facility]- [facility] 05/11/16 Hospitalization History Water retention/ [facility] 02/2017 Hospitalization History [facility] 11/2017 Hospitalization History INFECTION IN LEFT SMALL TOE AND FOOT 11/2018 Hospitalization History [facility] -- ICU -- COPD, SMAL L WOUND ON LEFT FOOT 12/2019 Hospitalization History COPD [facility] [place] 12/2019 Hospitalization History Ankle wound 01/2020 Hospitalization History COVID 11/2020 Hospitalization History A-FIB, CHF, KIDNEY ISSUE S 03/2021 [facility] Other 02-23-2023 History general Narrative - Reported* Type Description Date Medical History Triple vessel CAD Medical History ischemic cardiomyopa thy with ejection fraction 10-15% Medical History Cardiac arrythmias with insertio n of AICD device Medical History hypertension Medical History hyperlipidemia Medical History NIDDM Medical History COPD Medical History nicotine dependence Medical History cervical spinal stenosis Medical History hoarseness - mass removed by Dr. 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 failure w/hypoxia, acute on systolic chronic HF Surgical History Cardiac catherization (07/2010) Surgical History AICD insertion (11/2010) Surgical History right sided heart cath - [place] 10/2013 Surgical History appendectomy Surgical History rt heart cath 05/11/16 Surgical History pacemaker 07/2016 Surgical History SKIN GRAFT-FROM LEFT LEG TO LEF T FOOT 10/2018 Surgical History LEFT SMALL TOE AMPUTATION WITH SOME FOOT BONE 11/2018 Surgical History COLONOSCOPY AND EGD NORRIS Surgical History amputation left fifth toe Surgical History Ankle I/D LEFT 01/2020 Surgical History Left heel skin graft 03/29/2020 Surgical History SKIN GRAFT TO LEFT FOOT 03/2020 Surgical History CATARACT REMOVED ON RIGHT EYE Surgical History CATARACT REMOVED FROM LEFT EYE 06/2021 Hospitalization History see surgical hx Hospitalization History rt. heart cath Rex Stout- [facility] 05/11/16 Hospitalization History Water retention/ [facility] 02/2017 Hospitalization History [facility] 11/2017 Hospitalization History INFECTION IN LEFT SMALL TOE AND FOOT 11/2018 Hospitalization History [facility] -- ICU -- COPD, SMAL L WOUND ON LEFT FOOT 12/2019 Hospitalization History COPD [facility] [place] 12/2019 Hospitalization History Ankle wound 01/2020 Hospitalization History COVID 11/2020 Hospitalization History A-FIB, CHF, KIDNEY ISSUE S 03/2021 [facility] Other 02-18-2023 History general Narrative - Reported* Type Description Date Medical History Triple vessel CAD Medical History ischemic cardiomyopa thy with ejection fraction 10-15% Medical History Cardiac arrythmias with insertio n of AICD device Medical History hypertension Medical History hyperlipidemia Medical History NIDDM Medical History COPD Medical History nicotine dependence Medical History cervical spinal stenosis Medical History hoarseness - mass removed by Dr. 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 failure w/hypoxia, acute on systolic chronic HF Surgical History Cardiac catherization (07/2010) Surgical History AICD insertion (11/2010) Surgical History right sided heart cath - [place] 10/2013 Surgical History appendectomy Surgical History rt heart cath 05/11/16 Surgical History pacemaker 07/2016 Surgical History SKIN GRAFT-FROM LEFT LEG TO LEF T FOOT 10/2018 Surgical History LEFT SMALL TOE AMPUTATION WITH SOME FOOT BONE 11/2018 Surgical History COLONOSCOPY AND EGD NORRIS Surgical History amputation left fifth toe Surgical History Ankle I/D LEFT 01/2020 Surgical History Left heel skin graft 03/29/2020 Surgical History SKIN GRAFT TO LEFT FOOT 03/2020 Surgical History CATARACT REMOVED ON RIGHT EYE Surgical History CATARACT REMOVED FROM LEFT EYE 06/2021 Hospitalization History see surgical hx Hospitalization History rt. heart cath D Addy Stout- [facility] 05/11/16 Hospitalization History Water retention/ [facility] 02/2017 Hospitalization History [facility] 11/2017 Hospitalization History INFECTION IN LEFT SMALL TOE AND FOOT 11/2018 Hospitalization History [facility] -- ICU -- COPD, SMAL L WOUND ON LEFT FOOT 12/2019 Hospitalization History COPD [facility] [place] 12/2019 Hospitalization History Ankle wound 01/2020 Hospitalization History COVID 11/2020 Hospitalization History A-FIB, CHF, KIDNEY ISSUE S 03/2021 [facility] History general Narrative - Reported* Type Description Date Medical History Triple vessel CAD Medical History ischemic cardiomyopa thy with ejection fraction 10-15% Medical History Cardiac arrythmias with insertio n of AICD device Medical History hypertension Medical History hyperlipidemia Medical History NIDDM Medical History COPD Medical History nicotine dependence Medical History cervical spinal stenosis Medical History hoarseness - mass removed by Dr. 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 failure w/hypoxia, acute on systolic chronic HF Surgical History Cardiac catherization (07/2010) Surgical History AICD insertion (11/2010) Surgical History right sided heart cath - [place] 10/2013 Surgical History appendectomy Surgical History rt heart cath 05/11/16 Surgical History pacemaker 07/2016 Surgical History SKIN GRAFT-FROM LEFT LEG TO LEF T FOOT 10/2018 Surgical History LEFT SMALL TOE AMPUTATION WITH SOME FOOT BONE 11/2018 Surgical History COLONOSCOPY AND EGD NORRIS Surgical History amputation left fifth toe Surgical History Ankle I/D LEFT 01/2020 Surgical History Left heel skin graft 03/29/2020 Surgical History SKIN GRAFT TO LEFT FOOT 03/2020 Surgical History CATARACT REMOVED ON RIGHT EYE Surgical History CATARACT REMOVED FROM LEFT EYE 06/2021 Hospitalization History see surgical hx Hospitalization History rt. heart cath Rex Stout- [facility] 05/11/16 Hospitalization History Water retention/ [facility] 02/2017 Hospitalization History [facility] 11/2017 Hospitalization History INFECTION IN LEFT SMALL TOE AND FOOT 11/2018 Hospitalization History [facility] -- ICU -- COPD, SMAL L WOUND ON LEFT FOOT 12/2019 Hospitalization History COPD [facility] [place] 12/2019 Hospitalization History Ankle wound 01/2020 Hospitalization History COVID 11/2020 Hospitalization History A-FIB, CHF, KIDNEY ISSUE S 03/2021 [facility] Other 02-12-2023 History general Narrative - Reported* Type Description Date Medical History Triple vessel CAD Medical History ischemic cardiomyopa thy with ejection fraction 10-15% Medical History Cardiac arrythmias with insertio n of AICD device Medical History hypertension Medical History hyperlipidemia Medical History NIDDM Medical History COPD Medical History nicotine dependence Medical History cervical spinal stenosis Medical History hoarseness - mass removed by Dr. 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 failure w/hypoxia, acute on systolic chronic HF Surgical History Cardiac catherization (07/2010) Surgical History AICD insertion (11/2010) Surgical History right sided heart cath - [place] 10/2013 Surgical History appendectomy Surgical History rt heart cath 05/11/16 Surgical History pacemaker 07/2016 Surgical History SKIN GRAFT-FROM LEFT LEG TO LEF T FOOT 10/2018 Surgical History LEFT SMALL TOE AMPUTATION WITH SOME FOOT BONE 11/2018 Surgical History COLONOSCOPY AND EGD NORRIS Surgical History amputation left fifth toe Surgical History Ankle I/D LEFT 01/2020 Surgical History Left heel skin graft 03/29/2020 Surgical History SKIN GRAFT TO LEFT FOOT 03/2020 Surgical History CATARACT REMOVED ON RIGHT EYE Surgical History CATARACT REMOVED FROM LEFT EYE 06/2021 Hospitalization History see surgical hx Hospitalization History rt. heart cath Rex Stout- [facility] 05/11/16 Hospitalization History Water retention/ [facility] 02/2017 Hospitalization History [facility] 11/2017 Hospitalization History INFECTION IN LEFT SMALL TOE AND FOOT 11/2018 Hospitalization History [facility] -- ICU -- COPD, SMAL L WOUND ON LEFT FOOT 12/2019 Hospitalization History COPD [facility] [place] 12/2019 Hospitalization History Ankle wound 01/2020 Hospitalization History COVID 11/2020 Hospitalization History A-FIB, CHF, KIDNEY ISSUE S 03/2021 [facility] Other 02-07-2023 [facility] Evaluation note* Encounter Date Diagnosis Assessment Notes Treatment Notes Treatment Clinical Notes Nov, Type 2 diabetes mellitus with diabetic neuropathy, unspecified (ICD-10 - E11.40) Adwoa came in today for Download and evaluation of his Lucas report. He is currently taking 58units of Basaglar in the morning, 54 units at night, 34-36-38 units of Humalog at meals based on meal size, Farxiga 10mg daily, and Trulicity 4.5mg weekly. His average BG was 151, with 4% low, 66% in range, 22% high, and 8% very high. Per Tyesha Spain APRN his Basaglar was reduced to 52 in the AM and 50 in the PM. Adwoa was given a handout to reflect this. 30 minutes were spent evaluating the patient's report and discussing its findings with him by Shaw Rondon RN, [facility]. [facility] Other 01-23-2023 Reason for referral (narrative)* Reason 12/11/22 @ Referra gonzalez to [facility] per patient request Diagnosis 1 COPD (chronic obstru ctive pulmonary disease) (J44.9) Diagnosis 2 Athscl heart disease of [place] coronary artery w/o ang pctrs (I25.10) Diagnosis 3 Unspecified systolic (congestive) heart failure (I50.20) Referral Organization [facility] Mara Hodges Referring Provider First Name Vinnie Referring Provider Last Name Terry Referring Provider Specialty Family Prac yamil Referred Organization [facility] Referred Address [address] [facility],[place],[address] Referred Provider Specialty Hospice and Palliative Medicine Referral Priority Routine Referral Appointment Date 2022-12-11 General Notes Doris Modi 09:13:40 AM >referral received and faxed. appt scheduled for 11:00am today. Doris Modi 12/13/2022 12:20:16 PM >faxed letter to obtain consult note Doris Modi 12/14/2022 07:21:24 AM >received VM from marilu at [facility], she stated they saw pt, however; he told them he was not ready for comfort care and therefore did not sign on with hospice. Closing referral [facility] Other 01-23-2023 [facility] 12-01-2022 [facility]-27-2022 Evaluation note* Encounter Date Diagnosis Assessment Notes Treatment Notes Treatment Clinical Notes Oct, Lumbar and sacral arthritis (ICD-10 - M48.9) [facility] [employer] Other 12-24-2022 NoteAVS sent to [facility]. No further OTM needs at this time.[facility]12-24-20[facility] 11-11-20[facility] 11-09-20[facility] 11-09-20[facility] 11-09-20[facility] Evaluation note* Encounter Date Diagnosis Assessment Notes Treatment Notes Treatment Clinical Notes Oct, Vitamin D deficiency (ICD-10 - E55.9) 07/09 54 sees NEPHRO Oct, Type 2 diabetes mellitus with hyperglycemia (ICD-10 - E11.65) 1. Controlled, a Type 2 diabetes with A1c of 7.4, previous 6.7. Toleration of A1c under 8.0% due to comorbidities recent hospitalization with alteration in insulin dosing. His GMI today is 6.4% with multiple lows. 2. See previous telephone encounter describing redundancies from hospitalization clarified. Discharged on 75/25, at home restarted Basaglar 60 units in a.m. and 64 units in p.m. as well as Humalog 34 units with meals. Significant low blood sugars noted also discharged on Farxiga and Elizabet had multiple days with both medications. We had applied for [employer] patient assistance it appears his Farxiga is covered therefore he can take this ongoing. We discussed he should maintain on either SGLT2 secondary to his CHF. We adjusted his insulin regime and ongoing patient should be taking 58 units of Basaglar in the a.m. and 54 units in the evening. He will continue Humalog U200 prandial coverage combining correction and insulin to carb ratio. He should take 34 units for small meal, 36 units for medium meal and 38 units for a large meal. If patient notices blood glucose running under 100 for 3 of 7 days in a week he should decrease the Basaglar dose prior by 5 units. If he is noting postmeal low blood glucose previous to next meal he should reduce his prandial coverage 10% or 3 units ongoing, we were able to discuss examples. He was here today with his significant other who also asked good questions. He will continue his Trulicity 4.5 mg subcu weekly . he was mildly short of breath today for his appointment and reports that this is how he started feeling when he had his previous CHF exacerbation. We discussed a low threshold to present to the ER for worsening symptoms. He states understanding. He will be scheduled for download with diabetic education in 4 weeks and mn with 8 weeks to assure mitigation of low blood glucose. We did review signs and symptoms as well as treatment of hypoglycemia and he reports appropriate interventions. Research shows that stamina with the current regime may fatigue, as would outcomes and CGM is equitable compared to disease instability. Patient also maintains All reviewed, written discharge provided and he verbalizes correct dosing and instructions. 3. Patient is alert, oriented and receptive to making changes or counseling. also present and asks appropriate questions. Notes: Seen for 30 minutes for an assessment of current glucose pattern, changes in treatment plan, with greater than 50% of this time spent in counseling and coordination of care related to diabetes, risks, and benefits of treatment, medications, side effects, and counseling. Given handouts to reinforce concepts reviewed during counseling. TOPICS REVIEWED: 1. Time was spent reviewing: a. Basic concepts of diabetes, progressive beta cell , concepts of basal/bolus/correcti ve insulin requirements. Basal: The goal is fasting blood glucose of 90-130mg. IF fasting blood glucose starts to run under 100mg 3x's/ week, decrease dose by 10%. Bolus: The goal is to hold the blood glucose level steady meal to meal. If pt. is going to have increased physical activity after a meal, decrease the schedule meal dose prior to the activity by 30-50%. If pt. skips a meal do not take this dose. Correction: The goal is to correct an elevated glucose back into the 100-150mg range b. Nutrition: Concepts of healthy diet, encouraged to decrease saturated fat in diet and increase non-starchy vegetables and fruits in diet. BMI: Pt. needs to select one small change to decrease caloric intake or increase physical activity to help decrease weight. c. Correct treatment of hypoglycemia, carry a glucose source at all times on your person, in vehicles, and at bedside. Can use glucose tablets/4, four ounces of pop or juice equal to 15 G of carbohydrate. Blood glucose should be 100 mg/dl or higher when driving. d. ADA glucose goals for age and medical complexity reviewed e. Patient questions addressed 2. Activity/exercise: Encouraged to start any form of physical activity. Start low level and increase slowly to a minimal goal of 150 minutes/week. Limit activity to what is allowed by other issues such as cardiac, pulmonary or orthopedic restrictions. 3. Standards of care: Reminded to have an annual dilated eye exam, A1C every 3 months, urine testing for microalbumin once/year, check feet daily and report any cuts or sores that do not appear to be healing. 4. Meter: Plan to check blood glucose: Please check blood glucose levels 4 times/day. Back to back meals reveal effectiveness of bolus dosing. The blood glucose data is used to determine insulin doses and confirm symptoms for hypoglycemia and hyperglcyemia. The blood glucose data is used to determine insulin doses, and confirm symptoms for hypoglycemia and hyperglcyemia. 5. [facility]. Contact office if any issues or concerns with patterns of hypoglycemia, hyperglycemia, or diabetes medication issues. 6. Prescriptions: per patient no refills PAP will need review 09/2022Oct, Dietary counseling and surveillance (ICD-10 - Z71.3) Learning About Healthy Weight material was published to portal Oct, Hyperlipidemia (ICD-10 - E78.5) 07/2020 ldl 29.4 at goal- f/u with pcp Oct, HTN (hypertension) (ICD-10 - I10) f/u with pcp Oct, USP current use of insulin (ICD-10 - Z79.4) Oct, Vitamin B 12 deficiency (ICD-10 - E53.8) Oct, CKD (chronic kidney disease) stage 3, GFR 30-59 ml/min (ICD-10 - N18.3) keep f/u with nephrology Oct, Type 2 diabetes mellitus with diabetic neuropathy, unspecified (ICD-10 - E11.40) Oct, BMI 35.0-35.9,adult (ICD-10 - Z68.35) 20 Oct, 2022 Other I have spent 30 minutes with this patient and over 50% of the visit was counseling done by myself, Tyesha JUDD. BENEFIT FROM LIBRE2 with alarms, ordered thru [facility]. discussion and [employer] handout on hypoglycemia and treament. [facility] Other 12-09-2022 NoteDevice check q 6 monthsUn[facility]12-09-2022 NoteStable continue coregUnAvita Health System [facility] Hospital12-09-2022 NoteAs above.[facility] 10-27-2022 NoteContinue statinUnAvita Health System [facility]12-09-2022 Note F/u with PCPUn[facility]12-09-2022 NoteRate controlled Continue warfarin and coreg/ and digoxin- recent level as inpt was 1.0 - stable [facility]12-09-2022 [facility] NoteUn[facility]12-09-2022 Note [facility]12-06-2022 NotePhysical Therapy Pt is unable to be seen for therapy at this time secondary to pt sleeping. Will continue to check back as appropriate. Time attempted: 9:40Un[facility]12-05-2022 [facility]Un[facility]12-05-2022 [facility]Un[facility] 10-23-2022 [facility]Un[facility]12-05-2022 NoteUn[facility]12-05-2022 Note[facility]Un[facility]12-04-2022 NoteUn[facility]12-04-2022 Note[facility] 10-22-2022 NoteSent updates to [place]. OTM to follow.[facility]12-03-2022 NoteUn[facility]12-03-2022 Note [facility]12-02-2022 NoteUn[facility]12-02-2022 NoteMet with pt to to follow up with DC planning. Pt has [facility], sending referral updates. Pt lives with girlfriend Promise Alegre [phone], she provides assistance. Pt's daughter will transport upon DC. Pt uses [employer] for his home O2.[facility]12-02-2022 Note[facility]12[facility]-2022 NoteUnAv[facility]12-02-2022 Note [facility]12-02-2022 [facility]Un[facility]12-01-2022 NoteUn[facility]12-01-2022 Note [facility]12-01-2022 Note[facility]12[facility]-20[facility] Note[facility]12[facility]-2022 Note [facility]12-01-2022 NoteUn[facility]12-01-2022 NoteUn[facility]11-30-2022 Note [facility]11-30-2022 NoteUnAv[facility]11-30-2022 NoteUses CPAP at nightUnAvita [facility] 10-18-2022 NoteRenal condition is stable, last CR 1.52 on 10/03/22 GFR 46[facility]11-30-2022 NoteF/u with PCPUnAvita [facility]11-30-2022 NotestableUnAvita [facility] 10-18-2022 NotePt has made appt with Pulmonology - scheduled about 2 weeks from [facility]11-30-2022 NotestableUnAv[facility]11-30-2022 NoteCurrently b/p well controlled Continue [facility] medications[facility]11-30-2022 NoteAs above with HFrEFSouthern [facility] Center11-30-2022 NoteContinue statinUnAvita Health System [facility] Hospital11-30-2022 NoteCoronary artery disease is stable Continue GDMTUnAvita Health System [facility] Hospital11-30-2022 NoteContinue meds [facility]11-30-2022 NoteUnAv[facility]11-30-2022 NoteUnAv[facility]11-30-2022 Note [facility]11-21-2022 Evaluation note* Encounter Date Diagnosis Assessment Notes Treatment Notes Treatment Clinical Notes Sep, Lumbar and sacral arthritis (ICD-10 - M48.9) [facility] Other 11-17-2022 History general Narrative - Reported* Type Description Date Medical History Triple vessel CAD Medical History ischemic cardiomyopa thy with ejection fraction 10-15% Medical History Cardiac arrythmias with insertio n of AICD device Medical History hypertension Medical History hyperlipidemia Medical History NIDDM Medical History COPD Medical History nicotine dependence Medical History cervical spinal stenosis Medical History hoarseness - mass removed by Dr. 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 failure w/hypoxia, acute on systolic chronic HF Surgical History Cardiac catherization (07/2010) Surgical History AICD insertion (11/2010) Surgical History right sided heart cath - [facility] 10/2013 Surgical History appendectomy Surgical History rt heart cath 05/11/16 Surgical History pacemaker 07/2016 Surgical History SKIN GRAFT-FROM LEFT LEG TO LEF T FOOT 10/2018 Surgical History LEFT SMALL TOE AMPUTATION WITH SOME FOOT BONE 11/2018 Surgical History COLONOSCOPY AND EGD [facility] Surgical History amputation left fifth toe Surgical History Ankle I/D LEFT 01/2020 Surgical History Left heel skin graft 03/29/2020 Surgical History SKIN GRAFT TO LEFT FOOT 03/2020 Surgical History CATARACT REMOVED ON RIGHT EYE Surgical History CATARACT REMOVED FROM LEFT EYE 06/2021 Hospitalization History see surgical hx Hospitalization History rt. heart cath [facility] St[facility]- [facility] 05/11/16 Hospitalization History Water retention/ [facility] 02/2017 Hospitalization History [facility] 11/2017 Hospitalization History INFECTION IN LEFT SMALL TOE AND FOOT 11/2018 Hospitalization History [facility] -- ICU -- COPD, SMAL L WOUND ON LEFT FOOT 12/2019 Hospitalization History COPD [facility] [place] 12/2019 Hospitalization History Ankle wound 01/2020 Hospitalization History COVID 11/2020 Hospitalization History A-FIB, CHF, KIDNEY ISSUE S 03/2021 [facility] Other 11-10-2022 Evaluation note* Encounter Date Diagnosis Assessment Notes Treatment Notes Treatment Clinical Notes Sep, Diabetes mellitus wi th chronic kidney disease (ICD-10 - E11.22) His hemoglobin A1c is within the target goal. Continue follow-up with DM clinic for DM management. He is currently on losartan for renal protection. Continue low-dose of the losartan. Continue Jardiance to slow down the progression of CKD. 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 His b/l serum creatinine is 1.8-2 mg/dL.. I discussed with him the importance of good DM and HTN control to slow down the progression of disease. His renal ultrasound showed mild atrophy of the left kidney with a left renal cyst and nonobstructive kidney stones. 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 Continue Current dose of Bumex, Imdur, hydralazine, losartan and spironolactone I also advised him to limit the fluid intake to 50 ounces a day. Sep, Secondary hyperparathyroidism (ICD-10 - N25.81) MBD parameters including calcium phosphorus and vitamin D are within the goal Sep, Leukocytosis (ICD-10 - D72.829) He has a persistent leukocytosis and currently follows with a hematology. Sep, Other His hemoglobin is within the goal and has adequate Iron stores [facility] Other 11-10-2022 Evaluation note* Encounter Date Diagnosis Assessment Notes Treatment Notes Treatment Clinical Notes Sep, Burn of single finger of left hand except thumb, unspecified burn degree, initial encounter (ICD-10 - T23.022A) Discussed diagnosis with patient. Will get patient connected to wound care. Will send in rx of silvadene to use as directed. Keep skin clean, gently wash with soapy water, do not scrub, pay dry. Avoid hot water, use lukewarm water when showering. Stay hydrated, push fluids. Do not pick or scratch skin, do not pop blisters. May keep skin FRANTZ unless risk of getting blisters irritated or if they ooze. S/sx of infection reviewed, if occur follow up right away with PCP, UC or ER. Patient verbalizes understanding and is agreeable with treatment plan Sep, Other Wright material was printed [facility] Other 11-10-2022 History general Narrative - Reported* Type Description Date Medical History Triple vessel CAD Medical History ischemic cardiomyopa thy with ejection fraction 10-15% Medical History Cardiac arrythmias with insertio n of AICD device Medical History hypertension Medical History hyperlipidemia Medical History NIDDM Medical History COPD Medical History nicotine dependence Medical History cervical spinal stenosis Medical History hoarseness - mass removed by Dr. 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 failure w/hypoxia, acute on systolic chronic HF Surgical History Cardiac catherization (07/2010) Surgical History AICD insertion (11/2010) Surgical History right sided heart cath - [facility] 10/2013 Surgical History appendectomy Surgical History rt heart cath 05/11/16 Surgical History pacemaker 07/2016 Surgical History SKIN GRAFT-FROM LEFT LEG TO LEF T FOOT 10/2018 Surgical History LEFT SMALL TOE AMPUTATION WITH SOME FOOT BONE 11/2018 Surgical History COLONOSCOPY AND EGD [facility]RIS Surgical History amputation left fifth toe Surgical History Ankle I/D LEFT 01/2020 Surgical History Left heel skin graft 03/29/2020 Surgical History SKIN GRAFT TO LEFT FOOT 03/2020 Surgical History CATARACT REMOVED ON RIGHT EYE Surgical History CATARACT REMOVED FROM LEFT EYE 06/2021 Hospitalization History see surgical hx Hospitalization History rt. heart cath Rex Stout- [facility] 05/11/16 Hospitalization History Water retention/ [facility] 02/2017 Hospitalization History [facility] 11/2017 Hospitalization History INFECTION IN LEFT SMALL TOE AND FOOT 11/2018 Hospitalization History [facility] -- ICU -- COPD, SMAL L WOUND ON LEFT FOOT 12/2019 Hospitalization History COPD [facility] [place] 12/2019 Hospitalization History Ankle wound 01/2020 Hospitalization History COVID 11/2020 Hospitalization History A-FIB, CHF, KIDNEY ISSUE S 03/2021 [facility] Other 10-26-2022 Evaluation note* Encounter Date Diagnosis Assessment Notes Treatment Notes Treatment Clinical Notes Aug, Partial thickness burn of finger of left hand, initial encounter (ICD-10 - T23.222A) Continue with appropriate wound care at home and we will start Keflex 3 times a day. We discussed that this should have minimal impact on his INR, but he can still contact the Coumadin clinic. I advised him to call right away if seeing any worsening erythema, or with other concerns. [facility] Other 10-26-2022 History general Narrative - Reported* Type Description Date Medical History Triple vessel CAD Medical History ischemic cardiomyopa thy with ejection fraction 10-15% Medical History Cardiac arrythmias with insertio n of AICD device Medical History hypertension Medical History hyperlipidemia Medical History NIDDM Medical History COPD Medical History nicotine dependence Medical History cervical spinal stenosis Medical History hoarseness - mass removed by Dr. 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 failure w/hypoxia, acute on systolic chronic HF Surgical History Cardiac catherization (07/2010) Surgical History AICD insertion (11/2010) Surgical History right sided heart cath - [facility] 10/2013 Surgical History appendectomy Surgical History rt heart cath 05/11/16 Surgical History pacemaker 07/2016 Surgical History SKIN GRAFT-FROM LEFT LEG TO LEF T FOOT 10/2018 Surgical History LEFT SMALL TOE AMPUTATION WITH SOME FOOT BONE 11/2018 Surgical History COLONOSCOPY AND EGD NORRIS Surgical History amputation left fifth toe Surgical History Ankle I/D LEFT 01/2020 Surgical History Left heel skin graft 03/29/2020 Surgical History SKIN GRAFT TO LEFT FOOT 03/2020 Surgical History CATARACT REMOVED ON RIGHT EYE Surgical History CATARACT REMOVED FROM LEFT EYE 06/2021 Hospitalization History see surgical hx Hospitalization History rt. heart cath Rex Stout- [facility] 05/11/16 Hospitalization History Water retention/ [facility] 02/2017 Hospitalization History [facility] 11/2017 Hospitalization History INFECTION IN LEFT SMALL TOE AND FOOT 11/2018 Hospitalization History [facility] -- ICU -- COPD, SMAL L WOUND ON LEFT FOOT 12/2019 Hospitalization History COPD [facility] [place] 12/2019 Hospitalization History Ankle wound 01/2020 Hospitalization History COVID 11/2020 Hospitalization History A-FIB, CHF, KIDNEY ISSUE S 03/2021 [facility] Other 10-21-2022 Evaluation note* Encounter Date Diagnosis Assessment Notes Treatment Notes Treatment Clinical Notes Aug, Lumbar and sacral arthritis (ICD-10 - M48.9) [facility] Other 10-03-2022 History general Narrative - Reported* Type Description Date Medical History Triple vessel CAD Medical History ischemic cardiomyopa thy with ejection fraction 10-15% Medical History Cardiac arrythmias with insertio n of AICD device Medical History hypertension Medical History hyperlipidemia Medical History NIDDM Medical History COPD Medical History nicotine dependence Medical History cervical spinal stenosis Medical History hoarseness - mass removed by Dr. Marie Medical History Obstructive sleep apnea (adult) (pediatric) Medical History Woound on the left ankle with wo und pump Medical History diabetic neuropathy Medical History type II diabetes Medical History ventricylar tachycardia Medical History diverticulitis Medical History COVID 11/2020 Medical History CHF, AND A-FIB Medical History VERTIGO Surgical History Cardiac catherization (07/2010) Surgical History AICD insertion (11/2010) Surgical History right sided heart cath - [facility] 10/2013 Surgical History appendectomy Surgical History rt heart cath 05/11/16 Surgical History pacemaker 07/2016 Surgical History SKIN GRAFT-FROM LEFT LEG TO LEF T FOOT 10/2018 Surgical History LEFT SMALL TOE AMPUTATION WITH SOME FOOT BONE 11/2018 Surgical History COLONOSCOPY AND EGD [facility] Surgical History amputation left fifth toe Surgical History Ankle I/D LEFT 01/2020 Surgical History Left heel skin graft 03/29/2020 Surgical History SKIN GRAFT TO LEFT FOOT 03/2020 Surgical History CATARACT REMOVED ON RIGHT EYE Surgical History CATARACT REMOVED FROM LEFT EYE 06/2021 Hospitalization History see surgical hx Hospitalization History rt. heart cath Rex St[facility]- [facility] 05/11/16 Hospitalization History Water retention/ [facility] 02/2017 Hospitalization History [facility] 11/2017 Hospitalization History INFECTION IN LEFT SMALL TOE AND FOOT 11/2018 Hospitalization History [facility] -- ICU -- COPD, SMAL L WOUND ON LEFT FOOT 12/2019 Hospitalization History COPD [facility] [place] 12/2019 Hospitalization History Ankle wound 01/2020 Hospitalization History COVID 11/2020 Hospitalization History A-FIB, CHF, KIDNEY ISSUE S 03/2021 [facility] Other 09-12-2022 Evaluation note* Encounter Date Diagnosis Assessment Notes Treatment Notes Treatment Clinical Notes Jul, Vitamin D deficiency (ICD-10 - E55.9) 07/09 54 sees NEPHRO Jul, Type 2 diabetes mellitus with hyperglycemia (ICD-10 - E11.65) 1. Controlled, a Type 2 diabetes with A1c of 6.7%. Previous A1c8.1 and 10.7 2. Inprovement in control with some am lows (toleration of A1c of 7 d/t comorbidities and poor toleration of lows.) Will decrease Basaglar to 64 u am and 60 u PM, Continue humalog 34 u small meal, 36 u medium meal and 38 u large meal (Combined ICR and ISS est). Continue Jardiance 10 mg (renal dose) and Trulicity 4.5 mg sq weekly. Research shows that stamina with the current regime may fatigue, as would outcomes and CGM is equitable compared to disease instability. Patient also maintains All reviewed, written discharge provided and he verbalizes correct dosing and instructions. 3. Patient is alert, oriented and receptive to making changes or counseling. also present and asks appropriate questions. Notes: Seen for 30 minutes for an assessment of current glucose pattern, changes in treatment plan, with greater than 50% of this time spent in counseling and coordination of care related to diabetes, risks, and benefits of treatment, medications, side effects, and counseling. Given handouts to reinforce concepts reviewed during counseling. TOPICS REVIEWED: 1. Time was spent reviewing: a. Basic concepts of diabetes, progressive beta cell , concepts of basal/bolus/correc tive insulin requirements. Basal: The goal is fasting blood glucose of 90-130mg. IF fasting blood glucose starts to run under 100mg 3x's/ week, decrease dose by 10%. Bolus: The goal is to hold the blood glucose level steady meal to meal. If pt. is going to have increased physical activity after a meal, decrease the schedule meal dose prior to the activity by 30-50%. If pt. skips a meal do not take this dose. Correction: The goal is to correct an elevated glucose back into the 100-150mg range b. Nutrition: Concepts of healthy diet, encouraged to decrease saturated fat in diet and increase non-starchy vegetables and fruits in diet. BMI: Pt. needs to select one small change to decrease caloric intake or increase physical activity to help decrease weight. c. Correct treatment of hypoglycemia, carry a glucose source at all times on your person, in vehicles, and at bedside. Can use glucose tablets/4, four ounces of pop or juice equal to 15 G of carbohydrate. Blood glucose should be 100 mg/dl or higher when driving. d. ADA glucose goals for age and medical complexity reviewed e. Patient questions addressed 2. Activity/exercise: Encouraged to start any form of physical activity. Start low level and increase slowly to a minimal goal of 150 minutes/week. Limit activity to what is allowed by other issues such as cardiac, pulmonary or orthopedic restrictions. 3. Standards of care: Reminded to have an annual dilated eye exam, A1C every 3 months, urine testing for microalbumin once/year, check feet daily and report any cuts or sores that do not appear to be healing. 4. Meter: Plan to check blood glucose: Please check blood glucose levels 4 times/day. Back to back meals reveal effectiveness of bolus dosing. The blood glucose data is used to determine insulin doses and confirm symptoms for hypoglycemia and hyperglcyemia. The blood glucose data is used to determine insulin doses, and confirm symptoms for hypoglycemia and hyperglcyemia. 5. [facility] Contact office if any issues or concerns with patterns of hypoglycemia, hyperglycemia, or diabetes medication issues. 6. Prescriptions: per patient no refills PAP will need review 09/2022Jul, Dietary counseling and surveillance (ICD-10 - Z71.3) Learning About [employer] Weight material was published to portal Jul, Hyperlipidemia (ICD-10 - E78.5) 07/2020 ldl 29.4 at goal- f/u with pcp Jul, HTN (hypertension) (ICD-10 - I10) f/u with pcp Jul, USP current use of insulin (ICD-10 - Z79.4) Jul, Vitamin B 12 deficiency (ICD-10 - E53.8) Jul, CKD (chronic kidney disease) stage 3, GFR 30-59 ml/min (ICD-10 - N18.3) keep f/u with nephrology Jul, Type 2 diabetes mellitus with diabetic neuropathy, unspecified (ICD-10 - E11.40) Jul, BMI 35.0-35.9,adult (ICD-10 - Z68.35) Jul, Other I have spent 30 minutes with this patient and over 50% of the visit was counseling done by myself, Tyesha JUDD. BENEFIT FROM LIBRE2 with alarms, ordered thru [facility]. discussion and [employer] handout on hypoglycemia and treament. [facility] Other 08-04-2022 History general Narrative - Reported* Type Description Date Medical History Triple vessel CAD Medical History ischemic cardiomyopa thy with ejection fraction 10-15% Medical History Cardiac arrythmias with insertio n of AICD device Medical History hypertension Medical History hyperlipidemia Medical History NIDDM Medical History COPD Medical History nicotine dependence Medical History cervical spinal stenosis Medical History hoarseness - mass removed by Dr. Marie Medical History Obstructive sleep apnea (adult) (pediatric) Medical History Woound on the left ankle with wo und pump Medical History diabetic neuropathy Medical History type II diabetes Medical History ventricylar tachycardia Medical History diverticulitis Medical History COVID 11/2020 Medical History CHF, AND A-FIB Medical History VERTIGO Surgical History Cardiac catherization (07/2010) Surgical History AICD insertion (11/2010) Surgical History right sided heart cath - [facility] 10/2013 Surgical History appendectomy Surgical History rt heart cath 05/11/16 Surgical History pacemaker 07/2016 Surgical History SKIN GRAFT-FROM LEFT LEG TO LEF T FOOT 10/2018 Surgical History LEFT SMALL TOE AMPUTATION WITH SOME FOOT BONE 11/2018 Surgical History COLONOSCOPY AND EGD [facility] Surgical History amputation left fifth toe Surgical History Ankle I/D LEFT 01/2020 Surgical History Left heel skin graft 03/29/2020 Surgical History SKIN GRAFT TO LEFT FOOT 03/2020 Surgical History CATARACT REMOVED ON RIGHT EYE Surgical History CATARACT REMOVED FROM LEFT EYE 06/2021 Hospitalization History see surgical hx Hospitalization History rt. heart cath [facility] Stout- [facility] 05/11/16 Hospitalization History Water retention/ [facility] 02/2017 Hospitalization History [facility] 11/2017 Hospitalization History INFECTION IN LEFT SMALL TOE AND FOOT 11/2018 Hospitalization History [facility] -- ICU -- COPD, SMAL L WOUND ON LEFT FOOT 12/2019 Hospitalization History COPD [facility] [place] 12/2019 Hospitalization History Ankle wound 01/2020 Hospitalization History COVID 11/2020 Hospitalization History A-FIB, CHF, KIDNEY ISSUE S 03/2021 [facility] Other 08-02-2022 Evaluation note* Encounter Date Diagnosis Assessment Notes Treatment Notes Treatment Clinical Notes Jun, Community acquired pneumonia, unspecified laterality (ICD-10 - J18.9) He will complete the antibiotics and call with any worsening symptoms. I also advised him to call with any worsening diarrhea Jun, COPD (chronic obstructive pulmonary disease) (ICD-10 - J44.9) [facility] Other 08-02-2022 History general Narrative - Reported* Type Description Date Medical History Triple vessel CAD Medical History ischemic cardiomyopa thy with ejection fraction 10-15% Medical History Cardiac arrythmias with insertio n of AICD device Medical History hypertension Medical History hyperlipidemia Medical History NIDDM Medical History COPD Medical History nicotine dependence Medical History cervical spinal stenosis Medical History hoarseness - mass removed by Dr. Marie Medical History Obstructive sleep apnea (adult) (pediatric) Medical History Woound on the left ankle with wo und pump Medical History diabetic neuropathy Medical History type II diabetes Medical History ventricylar tachycardia Medical History diverticulitis Medical History COVID 11/2020 Medical History CHF, AND A-FIB Medical History VERTIGO Surgical History Cardiac catherization (07/2010) Surgical History AICD insertion (11/2010) Surgical History right sided heart cath - [facility] 10/2013 Surgical History appendectomy Surgical History rt heart cath 05/11/16 Surgical History pacemaker 07/2016 Surgical History SKIN GRAFT-FROM LEFT LEG TO LEF T FOOT 10/2018 Surgical History LEFT SMALL TOE AMPUTATION WITH SOME FOOT BONE 11/2018 Surgical History COLONOSCOPY AND EGD [facility] Surgical History amputation left fifth toe Surgical History Ankle I/D LEFT 01/2020 Surgical History Left heel skin graft 03/29/2020 Surgical History SKIN GRAFT TO LEFT FOOT 03/2020 Surgical History CATARACT REMOVED ON RIGHT EYE Surgical History CATARACT REMOVED FROM LEFT EYE 06/2021 Hospitalization History see surgical hx Hospitalization History rt. heart cath [facility]- [facility] 05/11/16 Hospitalization History Water retention/ [facility] 02/2017 Hospitalization History [facility] 11/2017 Hospitalization History INFECTION IN LEFT SMALL TOE AND FOOT 11/2018 Hospitalization History [facility] -- ICU -- COPD, SMAL L WOUND ON LEFT FOOT 12/2019 Hospitalization History COPD [facility] [place] 12/2019 Hospitalization History Ankle wound 01/2020 Hospitalization History COVID 11/2020 Hospitalization History A-FIB, CHF, KIDNEY ISSUE S 03/2021 [facility] Other 07-27-2022 Progress note Author Ethan Cummings [facility] June 13, 2022 10:16pm Note Date/Time June 06, 2022 11:5 4am [facility] [place] [place] [address] Hem/Onc Follow Up Note - OP Signed Patient: Adwoa Porter MR#: [id number] : 1955 Acct:[id number] Age/Sex: 66 / M Type: REG RCR Copies to: MD Vinnie Charles, DO~ Date of Service: 06/06/2022 Time of Service: 11:52 - Assessment & Plan (1) Leukocytosis Plan: Elevated neutrophils predominantly Potentially reactive. Will monitor for now. Slightly low iron and b12. Will supplement and repeat his indices prior to f/u. in may 2022 he had negative BCR ABL to evaluate for CML. Follow Up Instructions: start ferrous sulfate 325mg po daily. vitamin B12 1mg po daily. f/u in 6 months with cbc, cmp, iron studies, b12, folate prior. - History of Present Illness Chief Complaint: Patient is here for a 2 month follow up with last labs 04/10/22for review. No concerns voiced at this time. HPI: 66-year-old male referred by his primary care provider Dr. Vinnie Stewart. Recent complaints of dizzy spells. Past medical history includes coronary artery disease, ischemic cardiomyopathy with ejection fraction of 10 to 15%, severe tricuspid regurgitation, cardiac arrhythmias, AICD, hypertension, hyperlipidemia, type 2 diabetes, COPD, cervicalspinal stenosis, obstructive sleep apnea, diabetic neuropathy, diverticulitis, atrial fibrillation. Outpatient medications include losartan, Jardiance, atorvastatin, gabapentin, carvedilol, spironolactone, albuterol, nitro, Symbicort, potassium, Coumadin 5 mg p.o. daily, vitamin D, hydralazine, Bumex, Imdur, aspirin 81 mg p.o. daily, amitriptyline, nebulizers, digoxin, Humalog insulin, Trulicity,. Labs from July 19, 2021 show white blood cell count of 11.4 with a hemoglobin of 12.6 and an MCV of 90.8. Platelet count is 235,000. His ferritin was 112, iron saturation of 25.6% Labs from 01/16/2022 showed a hemoglobin of 13.9 with an MCV of 91.2. White blood cell count of 12.9. Platelet count is 311,000. Creatinine is 1.87. His ferritin was 100, iron saturation of 23.5%. Previous labs over the last 2 years or so have showed persistently elevated white blood cell count and moderate to mild anemia. His differential has been primarily neutrophils with absolute neutrophil counts from 9700-15,000. He is doing ok. He is in a wheelchair today. He has had a recent fall and hit his back. His neuropathy is very severe. He has very little sensation in his fingertips. Many wounds on fingertips mostly on the L hand, but also his right hand. he thinks from opening hot popcorn, he eats 3 bags per day. 06/06/22 he is doing ok again. no change in his neuropathy. Many bruises and small cuts. hs BCR/ABL was negative. Recent hospitalization at [facility] for COVID PNA. He had also a pneumothorax per the patient we dont have records yet. he is breathing better now. He is not on oxygen currently. - Physical Exam ECOG PS: 1-2. General : patient is alert and oriented to person place and time, no acute distress. Neck: no JVD or thyromegaly. Lymph: no cervical, supraclavicular, axillary adenopathy. Heart: regular rate and rhythm no murmurs rubs or gallops. Abdomen: soft nontender nondistended, no hepatosplenomegaly. Lungs: cta bl, no wheezes, rales, rhonchi Extremities: no clubbing cyanosis. multiple wounds on fingertips L hand, one on the tip of his 3rd digit R hand. - Time with Patient Coordination of Care & Counseling Time: Greater than 50% of time spent with patient was for coordination of care (as documented) and [id number] counseling of patient and/or family. [facility] - Medical History Medical History: Medical History (Last Updated 04/10/22 @ 15:01 by Gisselle Brown) Amputated toe of left foot Amputation of toe left fifth toe Appendicitis Cardiac defibrillator in place Congestive heart failure COPD (chronic obstructive pulmonary disease) Diabetes mellitus HTN (hypertension) Hypercholesteremia Numbness and tingling in both hands Numbness and tingling of both feet On home O2 3L - Surgical History Surgical History: Surgical History (Last Updated 04/10/22 @ 15:01 by Gisselle Brown) H/O cardiac catheterization History of appendectomy History of cataract extraction bilateral - Family History Family History: Family History (Last Reviewed 04/10/22 @ 14:50 by Gisselle Brown) Other CAD (coronary artery disease) Diabetes - Social History Smoking Status: Former smoker Tobacco Type: cigarettes Substance Use Type: Alcohol Social History Comments: lives in a trailor - with Promise (friend) Additional Data - Additional Objective Data Height/Weight: Height 5 ft 9 in Weight 106.776 kg Vital Signs: 06/06/22 11:36 Temperature 98 F Pulse Rate [Left Brachial] 86 Respiratory Rate 20 Blood Pressure [Left Arm] 108/67 02 Sat by Pulse Oximetry 95 - Lab Results Diagram of Most Recent CBC and CMP 04/10/22 15:56 04/10/22 15:56 - Home Medications and Allergies Allergies/Adverse Reactions: Allergies GABRIELA Inhibitors Adverse Reaction (Verified 04/10/22 14:49) Cough Home Medications: Home Medications albuterol sulfate 2.5 mg inhalation Q4H PRN breathing 04/10/22 [History Confirmed 04/10/22] albuterol sulfate 90 mcg/actuation aerosol inhaler 2 puff inhalation Q4H PRN breathing 04/10/22 [History Confirmed 04/10/22] amitriptyline 25 mg tablet 25 mg PO QHS 04/10/22 [History Confirmed 04/10/22] aspirin 81 mg tablet,delayed release 81 mg PO DAILY 04/10/22 [History Confirmed 04/10/22] atorvastatin 80 mg tablet 80 mg PO DAILY 04/10/22 [History Confirmed 04/10/22] budesonide-formoterol HFA 160 mcg-4.5 mcg/actuation aerosol inhaler (Symbicort) 2 puff inhalation BID 04/10/22 [History Confirmed 04/10/22] bumetanide 1 mg tablet 1 mg PO BID 04/10/22 [History Confirmed 04/10/22] carvedilol 25 mg tablet 25 mg PO BID 04/10/22 [History Confirmed 04/10/22] cholecalciferol (vitamin D3) 50 mcg (2,000 unit) tablet (Vitamin D3) 50 mcg PO DAILY 04/10/22 [History Confirmed 04/10/22] digoxin 125 mcg (0.125 mg) tablet 125 mcg PO DAILY 04/10/22 [History Confirmed 04/10/22] dulaglutide 4.5 mg/0.5 mL subcutaneous pen injector (Trulicity) See Rx Instructions .Route .COMPLEX 04/10/22 [History Confirmed 04/10/22] empagliflozin 10 mg tablet (Jardiance) 10 mg PO DAILY 04/10/22 [History Confirmed 04/10/22] gabapentin 400 mg capsule 400 mg PO BID 04/10/22 [History Confirmed 04/10/22] hydralazine 50 mg tablet 50 mg PO TID 04/10/22 [History Confirmed 04/10/22] hydrocodone 5 mg-acetaminophen 325 mg tablet 1 tab PO TID PRN Pain 04/10/22 [History Confirmed 04/10/22] insulin glargine 100 unit/mL (3 mL) subcutaneous pen (Basaglar KwikPen U-100 Insulin) 63 unit subcut BID 04/10/22 [History Confirmed 04/10/22] insulin lispro 200 unit/mL (3 mL) subcutaneous pen (Humalog KwikPen U-200 Insulin) See Rx Instructions .Route .COMPLEX 04/10/22 [History Confirmed 04/10/22] ipratropium bromide 0.02 % solution for inhalation 04/10/22 [History] isosorbide dinitrate 20 mg tablet 20 mg PO BID 04/10/22 [History Confirmed 04/10/22] losartan 25 mg tablet 25 mg PO DAILY 04/10/22 [History Confirmed 04/10/22] nitroglycerin 0.4 mg sublingual tablet (Nitrostat) 0.4 mg sublingual DIRECTEDPRN Chest Pain 04/10/22 [History Confirmed 04/10/22] potassium chloride 10 mEq tablet,extended release (Klor-Con) 10 meq PO DAILY 04/10/22 [History Confirmed 04/10/22] spironolactone 25 mg tablet 25 mg PO DAILY 04/10/22 [History Confirmed 04/10/22] warfarin 5 mg tablet 5 mg PO DIRECTED 04/10/22 [History Confirmed 04/10/22] cyanocobalamin (vitamin B-12) 1,000 mcg tablet (Vitamin B-12) 1,000 mcg PO DAILY#30 tabs 06/06/22 [Rx] ferrous sulfate 325 mg (65 mg iron) tablet 325 mg PO DAILY #30 tabs 06/06/22 [Rx] Dictated By: Ethan Cummings II, DO DD/ 1152 Signed By: <Electronically signed by Ethan Cummings II DO> 06/13/[address] [facility] Work Phone: [phone]) 465-713706-28-2022 History general Narrative - Reported* Type Description Date Medical History Triple vessel CAD Medical History ischemic cardiomyopa thy with ejection fraction 10-15% Medical History Cardiac arrythmias with insertio n of AICD device Medical History hypertension Medical History hyperlipidemia Medical History NIDDM Medical History COPD Medical History nicotine dependence Medical History cervical spinal stenosis Medical History hoarseness - mass removed by Dr. Marie Medical History Obstructive sleep apnea (adult) (pediatric) Medical History Woound on the left ankle with wo und pump Medical History diabetic neuropathy Medical History type II diabetes Medical History ventricylar tachycardia Medical History diverticulitis Medical History COVID 11/2020 Medical History CHF, AND A-FIB Medical History VERTIGO Surgical History Cardiac catherization (07/2010) Surgical History AICD insertion (11/2010) Surgical History right sided heart cath - [facility] 10/2013 Surgical History appendectomy Surgical History rt heart cath 05/11/16 Surgical History pacemaker 07/2016 Surgical History SKIN GRAFT-FROM LEFT LEG TO LEF T FOOT 10/2018 Surgical History LEFT SMALL TOE AMPUTATION WITH SOME FOOT BONE 11/2018 Surgical History COLONOSCOPY AND EGD [facility] Surgical History amputation left fifth toe Surgical History Ankle I/D LEFT 01/2020 Surgical History Left heel skin graft 03/29/2020 Surgical History SKIN GRAFT TO LEFT FOOT 03/2020 Surgical History CATARACT REMOVED ON RIGHT EYE Surgical History CATARACT REMOVED FROM LEFT EYE 06/2021 Hospitalization History see surgical hx Hospitalization History rt. heart cath [facility]- [facility] 05/11/16 Hospitalization History Water retention/ [facility] 02/2017 Hospitalization History [facility] 11/2017 Hospitalization History INFECTION IN LEFT SMALL TOE AND FOOT 11/2018 Hospitalization History [facility] -- ICU -- COPD, SMAL L WOUND ON LEFT FOOT 12/2019 Hospitalization History COPD [facility] [place] 12/2019 Hospitalization History Ankle wound 01/2020 Hospitalization History COVID 11/2020 Hospitalization History A-FIB, CHF, KIDNEY ISSUE S 03/2021 [facility] Other 06-08-2022 Evaluation note* Encounter Date Diagnosis Assessment Notes Treatment Notes Treatment Clinical Notes Apr, Type 2 diabetes mellitus with hyperglycemia (ICD-10 - E11.65) [facility] Other 06-06-2022 Evaluation note* Encounter Date Diagnosis Assessment Notes Treatment Notes Treatment Clinical Notes Apr, Acute on chronic systolic congestive heart failure (ICD-10 - I50.23) [facility] Other 05-23-2022 Progress note Author Ethan Cummings [facility] April 10, 2022 3:31pm Note Date/Time April 10, 2022 2:42p m [facility] [place] [address] Hem/Onc Follow Up Note - OP Signed Patient: Adwoa Porter MR#: [id number] : 1955 Acct:[id number] Age/Sex: 66 / M Type: REG RCR Copies to: MD Vinnie Charles, DO~ Date of Service: 04/10/2022 Time of Service: 14:41 - Assessment & Plan (1) Leukocytosis Plan: Elevated neutrophils predominantly We will check a BCR ABL to evaluate for CML. We will also check his erythropoietin as he is variably anemic although most recently he has not been as anemic. Likely has anemia of chronic renal disease. We will also check his vitamin B12 and folate. Follow Up Instructions: Check vitamin B12, folate, methylmalonic acid, protein electrophoresis, serum free light chains, serum immunofixation, BCR ABL peripheral, iron studies, CBC with differential, peripheral smear, CMP. Follow-up in 1 month with CBC. - History of Present Illness HPI: 66-year-old male referred by his primary care provider Dr. Vinnie Stewart. Recent complaints of dizzy spells. Past medical history includes coronary artery disease, ischemic cardiomyopathy with ejection fraction of 10 to 15%, severe tricuspid regurgitation, cardiac arrhythmias, AICD, hypertension, hyperlipidemia, type 2 diabetes, COPD, cervicalspinal stenosis, obstructive sleep apnea, diabetic neuropathy, diverticulitis, atrial fibrillation. Outpatient medications include losartan, Jardiance, atorvastatin, gabapentin, carvedilol, spironolactone, albuterol, nitro, Symbicort, potassium, Coumadin 5 mg p.o. daily, vitamin D, hydralazine, Bumex, Imdur, aspirin 81 mg p.o. daily, amitriptyline, nebulizers, digoxin, Humalog insulin, Trulicity,. Labs from July 19, 2021 show white blood cell count of 11.4 with a hemoglobin of 12.6 and an MCV of 90.8. Platelet count is 235,000. His ferritin was 112, iron saturation of 25.6% Labs from 01/16/2022 showed a hemoglobin of 13.9 with an MCV of 91.2. White blood cell count of 12.9. Platelet count is 311,000. Creatinine is 1.87. His ferritin was 100, iron saturation of 23.5%. Previous labs over the last 2 years or so have showed persistently elevated white blood cell count and moderate to mild anemia. His differential has been primarily neutrophils with absolute neutrophil counts from 9700-15,000. He is doing ok. He is in a wheelchair today. He has had a recent fall and hit his back. His neuropathy is very severe. He has very little sensation in his fingertips. Many wounds on fingertips mostly on the L hand, but also his right hand. he thinks from opening hot popcorn, he eats 3 bags per day. - Physical Exam ECOG PS: 1-2. General : patient is alert and oriented to person place and time, no acute distress. Neck: no JVD or thyromegaly. Lymph: no cervical, supraclavicular, axillary adenopathy. Heart: regular rate and rhythm no murmurs rubs or gallops. Abdomen: soft nontender nondistended, no hepatosplenomegaly. Lungs: cta bl, no wheezes, rales, rhonchi Extremities: no clubbing cyanosis. multiple wounds on fingertips L hand, one on the tip of his 3rd digit R hand. - Time with Patient Coordination of Care & Counseling Time: Greater than 50% of time spent with patient was for coordination of care (as documented) and [id number]-[id number] counseling of patient and/or family. [facility] - Medical History Medical History: Medical History (Last Updated 04/10/22 @ 15:01 by Gisselle Brown) Amputated toe of left foot Amputation of toe left fifth toe Appendicitis Cardiac defibrillator in place Congestive heart failure COPD (chronic obstructive pulmonary disease) Diabetes mellitus HTN (hypertension) Hypercholesteremia Numbness and tingling in both hands Numbness and tingling of both feet On home O2 3L - Surgical History Surgical History: Surgical History (Last Updated 04/10/22 @ 15:01 by Gisselle Brown) H/O cardiac catheterization History of appendectomy History of cataract extraction bilateral - Family History Family History: Family History (Last Reviewed 04/10/22 @ 14:50 by Gisselle Brown) Other CAD (coronary artery disease) Diabetes - Social History Smoking Status: Former smoker Tobacco Type: cigarettes Substance Use Type: Alcohol Social History Comments: lives in a trailor - with Promise (friend) Additional Data - Home Medications and Allergies Allergies/Adverse Reactions: Allergies GABRIELA Inhibitors Adverse Reaction (Verified 04/10/22 14:49) Cough Dictated By: Ethan Cummings II, DO DD/ 1441 Signed By: <Electronically signed by Ethan Cummings II, DO> 04/10/22 1531 [facility] Work Phone: [phone]) 239-207904-29-2022 Evaluation note* Encounter Date Diagnosis Assessment Notes Treatment Notes Treatment Clinical Notes Feb, Facet arthritis of lumbar region (ICD-10 - M46.96) [facility] Other 04-14-2022 Evaluation note* Encounter Date Diagnosis Assessment Notes Treatment Notes Treatment Clinical Notes Feb, Acute onset of severe vertigo (ICD-10 - R42) Feb, Impacted cerumen of right ear (ICD-10 - H61.21) Irrigation done to the right ear, he tolerated this well and a very large amount of cerumen was removed. After removal of cerumen, his tympanic membrane appeared normal. After irrigation, he reported a significant improvement to his vertigo. He was able to rapidly move his head without any return of vertigo. Hopefully, this was the entire cause of his vertigo, he can continue meclizine in the next few days and call the office if symptoms do not continue to improve Feb, Open wound of right great toe, initial encounter (ICD-10 - S91.101A) Given his history, antibiotic sent. If he is not seeing rapid healing of this wound he will follow-up with his [employer] member other ranks [facility] Other 04-03-2022 Evaluation note* Encounter Date Diagnosis Assessment Notes Treatment Notes Treatment Clinical Notes Feb, Left foot pain (ICD-10 - M79.672) Contiune all home medicatons as prescribed. Follow up with your primary care physciain tomorrow for further testing. Go to the ER for worsening symptoms or concerns. [facility] Other 03-22-2022 Evaluation note* Encounter Date Diagnosis Assessment Notes Treatment Notes Treatment Clinical Notes Jan, Obstructive sleep apnea (adult) (pediatric) (ICD-10 - G47.33) He is fortunately using and benefiting from treatment. I reviewed his download and he expresses good understanding. He feels very positive about the treatment. Encouraged him to use the machine every night, all night. He will call if any problems arise. Jan, COPD (chronic obstructive pulmonary disease) (ICD-10 - J44.9) COPD can worsen nocturnal hypoxia and untreated sleep apnea. He is encouraged to use the machine every night, all night Jan, Chronic systolic congestive heart failure (ICD-10 - I50.22) There is a strong, bidirectional relationship between congestive heart failure and severe sleep apnea. Patients with CHF will have sleep apnea a full 60% of the time, and controlling sleep apnea can have a substantial effect on cardiac function after hypoxia and catecholamine overload caused by recurring apneas are controlled. [facility] Other 02-23-2022 Evaluation note* Encounter Date Diagnosis Assessment Notes Treatment Notes Treatment Clinical Notes Dec, Vitamin D deficiency (ICD-10 - E55.9) 07/09 54 sees [facility]RO Dec, Type 2 diabetes mellitus with hyperglycemia (ICD-10 - E11.65) 1. Uncontrolled, a Type 2 diabetes with A1c of 10.7% . GMI today implies improvement to 9.1% over the past 2 weeks. Patient is not having glucose. 2. Blood glucose levels increased. LIBRE2 as above. Missed BG checks. Significant missed active time, trends similar.maintained reminders (shared collaboration; 9a, 1155a, 1645, 2130, High alarm to 280.) Low alarm to 85, single low episode in 2 weeks secondary to insulin injection and forgot to eat. Strategized to avoid in future, verbalized appropriate management. Tolerating increase Trulicity 4.5mg weekly. Reduced Basaglar to 63u Q12 hours (CONSIDER TOUJEO/U300 d/t increaed insulin needs.) Titration for increase and reduction reviewed, he reports understanding. Humalog fixed dosing for small medium and large meals without insulin sliding scale due to ease, small meal 34 units, medium 36 unit and large meal 38 units. Discussed popcorn, needs coverage, patient will verify nutrition label and cover as appropriate. States understaning. RTC 6 weeks for reeval. All reviewed, written discharge provided and he verbalizes correct dosing and instructions. 3. Patient is alert, oriented and receptive to making changes or counseling. also present and asks appropriate questions. Notes: Seen for 40 minutes for an assessment of current glucose pattern, changes in treatment plan, with greater than 50% of this time spent in counseling and coordination of care related to diabetes, risks, and benefits of treatment, medications, side effects, and counseling. Given handouts to reinforce concepts reviewed during counseling. TOPICS REVIEWED: 1. Time was spent reviewing: a. Basic concepts of diabetes, progressive beta cell , concepts of basal/bolus/correc tive insulin requirements. Basal: The goal is fasting blood glucose of 90-130mg. IF fasting blood glucose starts to run under 100mg 3x's/ week, decrease dose by 10%. Bolus: The goal is to hold the blood glucose level steady meal to meal. If pt. is going to have increased physical activity after a meal, decrease the schedule meal dose prior to the activity by 30-50%. If pt. skips a meal do not take this dose. Correction: The goal is to correct an elevated glucose back into the 100-150mg range b. Nutrition: Concepts of healthy diet, encouraged to decrease saturated fat in diet and increase non-starchy vegetables and fruits in diet. BMI: Pt. needs to select one small change to decrease caloric intake or increase physical activity to help decrease weight. c. Correct treatment of hypoglycemia, carry a glucose source at all times on your person, in vehicles, and at bedside. Can use glucose tablets/4, four ounces of pop or juice equal to 15 G of carbohydrate. Blood glucose should be 100 mg/dl or higher when driving. d. ADA glucose goals for age and medical complexity reviewed e. Patient questions addressed 2. Activity/exercise: Encouraged to start any form of physical activity. Start low level and increase slowly to a minimal goal of 150 minutes/week. Limit activity to what is allowed by other issues such as cardiac, pulmonary or orthopedic restrictions. 3. Standards of care: Reminded to have an annual dilated eye exam, A1C every 3 months, urine testing for microalbumin once/year, check feet daily and report any cuts or sores that do not appear to be healing. 4. Meter: Plan to check blood glucose: Please check blood glucose levels 4 times/day. Back to back meals reveal effectiveness of bolus dosing. The blood glucose data is used to determine insulin doses and confirm symptoms for hypoglycemia and hyperglcyemia. The blood glucose data is used to determine insulin doses, and confirm symptoms for hypoglycemia and hyperglcyemia. 5. [facility]. Contact office if any issues or concerns with patterns of hypoglycemia, hyperglycemia, or diabetes medication issues. 6. Prescriptions: per patient no refills 01-11-22 Dec, Dietary counseling and surveillance (ICD-10 - Z71.3) Learning About Healthy Weight material was published to portal Dec, Hyperlipidemia (ICD-10 - E78.5) 07/2020 ldl 29.4 at goal- f/u with pcp Dec, HTN (hypertension) (ICD-10 - I10) f/u with pcp Dec, intermediate manager current use of insulin (ICD-10 - Z79.4) Dec, Vitamin B 12 deficiency (ICD-10 - E53.8) Dec, CKD (chronic kidney disease) stage 3, GFR 30-59 ml/min (ICD-10 - N18.3) keep f/u with nephrology Dec, Type 2 diabetes mellitus with diabetic neuropathy, unspecified (ICD-10 - E11.40) Dec, Hypoglycemia (ICD-10 - E16.2) BENEFIT FROM LIBRE2 with alarms, ordered thru med. discussion and merck handout on hypoglycemia and treament. Dec, BMI 35.0-35.9,adult (ICD-10 - Z68.35) Dec, Other I have spent 30 minutes with this patient and over 50% of the visit was counseling done by myself, Tyesha JUDD. [facility] Other 01-10-2022 Evaluation note* Encounter Date Diagnosis Assessment Notes Treatment Notes Treatment Clinical Notes Nov, Type 2 diabetes mellitus with hyperglycemia (ICD-10 - E11.65) [facility] Other 12-29-2021 Evaluation note* Encounter Date Diagnosis Assessment Notes Treatment Notes Treatment Clinical Notes Oct, Vitamin D deficiency (ICD-10 - E55.9) 07/09 54 sees NEPHRO Oct, Type 2 diabetes mellitus with hyperglycemia (ICD-10 - E11.65) 1. Uncontrolled, a Type 2 diabetes with A1c of 10.7% 2. Blood glucose levels increased. LIBRE2 as above. Missed BG checks. Significant missed active time, trends similar.maintained reminders (shared collaboration; 9a, 1155a, 1645, 2130, High alarm to 280.) Low alarm to 85, single low episode in 2 weeks secondary to insulin injection and forgot to eat. Strategized to avoid in future, verbalized appropriate management. Tolerating increase Trulicity 4.5mg weekly. Basaglar increased to 64u Q12 hours (CONSIDER TOUJEO/U300 d/t increaed insulin needs. Titration for increase and reduction reviewed, he reports understanding. Increased prandial coverage, continued fixed dosing for ease, reducing by 5 u for small meal TID. States understaning. RTC 8 weeks for reeval. All reviewed, written discharge provided and he verbalizes correct dosing and instructions. 3. Patient is alert, oriented and receptive to making changes or counseling. also present and asks appropriate questions. Notes: Seen for 40 minutes for an assessment of current glucose pattern, changes in treatment plan, with greater than 50% of this time spent in counseling and coordination of care related to diabetes, risks, and benefits of treatment, medications, side effects, and counseling. Given handouts to reinforce concepts reviewed during counseling. TOPICS REVIEWED: 1. Time was spent reviewing: a. Basic concepts of diabetes, progressive beta cell , concepts of basal/bolus/correc tive insulin requirements. Basal: The goal is fasting blood glucose of 90-130mg. IF fasting blood glucose starts to run under 100mg 3x's/ week, decrease dose by 10%. Bolus: The goal is to hold the blood glucose level steady meal to meal. If pt. is going to have increased physical activity after a meal, decrease the schedule meal dose prior to the activity by 30-50%. If pt. skips a meal do not take this dose. Correction: The goal is to correct an elevated glucose back into the 100-150mg range b. Nutrition: Concepts of healthy diet, encouraged to decrease saturated fat in diet and increase non-starchy vegetables and fruits in diet. BMI: Pt. needs to select one small change to decrease caloric intake or increase physical activity to help decrease weight. c. Correct treatment of hypoglycemia, carry a glucose source at all times on your person, in vehicles, and at bedside. Can use glucose tablets/4, four ounces of pop or juice equal to 15 G of carbohydrate. Blood glucose should be 100 mg/dl or higher when driving. d. ADA glucose goals for age and medical complexity reviewed e. Patient questions addressed 2. Activity/exercise: Encouraged to start any form of physical activity. Start low level and increase slowly to a minimal goal of 150 minutes/week. Limit activity to what is allowed by other issues such as cardiac, pulmonary or orthopedic restrictions. 3. Standards of care: Reminded to have an annual dilated eye exam, A1C every 3 months, urine testing for microalbumin once/year, check feet daily and report any cuts or sores that do not appear to be healing. 4. Meter: Plan to check blood glucose: Please check blood glucose levels 4 times/day. Back to back meals reveal effectiveness of bolus dosing. The blood glucose data is used to determine insulin doses and confirm symptoms for hypoglycemia and hyperglcyemia. The blood glucose data is used to determine insulin doses, and confirm symptoms for hypoglycemia and hyperglcyemia. 5. [facility]. Contact office if any issues or concerns with patterns of hypoglycemia, hyperglycemia, or diabetes medication issues. 6. Prescriptions: per patient no refills needed today 11-16-2021 Oct, Dietary counseling and surveillance (ICD-10 - Z71.3) Learning About Healthy Weight material was published to portal Oct, Hyperlipidemia (ICD-10 - E78.5) 07/2020 ldl 29.4 at goal- f/u with pcp Oct, HTN (hypertension) (ICD-10 - I10) f/u with pcp Oct, USP current use of insulin (ICD-10 - Z79.4) Oct, Vitamin B 12 deficiency (ICD-10 - E53.8) Oct, CKD (chronic kidney disease) stage 3, GFR 30-59 ml/min (ICD-10 - N18.3) keep f/u with nephrology Oct, Type 2 diabetes mellitus with diabetic neuropathy, unspecified (ICD-10 - E11.40) Oct, Hypoglycemia (ICD-10 - E16.2) BENEFIT FROM LIBRE2 with alarms, ordered thru [employer]. discussion and merck handout on hypoglycemia and treament. Oct, BMI 35.0-35.9,adult (ICD-10 - Z68.35) Oct, Other I have spent 30 minutes with this patient and over 50% of the visit was counseling done by myself, Tyesha JUDD. [facility] Other 11-17-2021 Evaluation note* Encounter Date Diagnosis Assessment Notes Treatment Notes Treatment Clinical Notes Sep, Vitamin D deficiency (ICD-10 - E55.9) 07/09 54 sees NEPHRO Sep, Type 2 diabetes mellitus with hyperglycemia (ICD-10 - E11.65) 1. Uncontrolled, a Type 2 diabetes with A1c of 7.8% 2. Blood glucose levels higher, Libre2 download today 48% active. Average glucose 269. GMI cannot be calculated. Variability 24.0%. Greater than 250 56%, 181-250 36%, 70-180 8% below 69 00%. Significant missed active time, trends similar.maintained reminders (shared collaboration; 9a, 1155a, 1645, 2130, High alarm to 280.) Increased low alarm to 85. Increase Trulicity 4.5mg weekly. Basaglar 60u Q12 hours Titration for increase and reduction reviewed, he reports understanding. Increased prandial coverage to fixed dosing 32-37 based on meal size -reduce by 5 u/meal if eating less. He was able to teach back with appropriate rescue options. RTC 6 weeks for reeval. All reviewed, written discharge provided and he verbalizes correct dosing and instructions. 3. Patient is alert, oriented and receptive to making changes or counseling. also present and asks appropriate questions. Notes: Seen for 40 minutes for an assessment of current glucose pattern, changes in treatment plan, with greater than 50% of this time spent in counseling and coordination of care related to diabetes, risks, and benefits of treatment, medications, side effects, and counseling. Given handouts to reinforce concepts reviewed during counseling. TOPICS REVIEWED: 1. Time was spent reviewing: a. Basic concepts of diabetes, progressive beta cell , concepts of basal/bolus/correc tive insulin requirements. Basal: The goal is fasting blood glucose of 90-130mg. IF fasting blood glucose starts to run under 100mg 3x's/ week, decrease dose by 10%. Bolus: The goal is to hold the blood glucose level steady meal to meal. If pt. is going to have increased physical activity after a meal, decrease the schedule meal dose prior to the activity by 30-50%. If pt. skips a meal do not take this dose. Correction: The goal is to correct an elevated glucose back into the 100-150mg range b. Nutrition: Concepts of healthy diet, encouraged to decrease saturated fat in diet and increase non-starchy vegetables and fruits in diet. BMI: Pt. needs to select one small change to decrease caloric intake or increase physical activity to help decrease weight. c. Correct treatment of hypoglycemia, carry a glucose source at all times on your person, in vehicles, and at bedside. Can use glucose tablets/4, four ounces of pop or juice equal to 15 G of carbohydrate. Blood glucose should be 100 mg/dl or higher when driving. d. ADA glucose goals for age and medical complexity reviewed e. Patient questions addressed 2. Activity/exercise: Encouraged to start any form of physical activity. Start low level and increase slowly to a minimal goal of 150 minutes/week. Limit activity to what is allowed by other issues such as cardiac, pulmonary or orthopedic restrictions. 3. Standards of care: Reminded to have an annual dilated eye exam, A1C every 3 months, urine testing for microalbumin once/year, check feet daily and report any cuts or sores that do not appear to be healing. 4. Meter: Plan to check blood glucose: Please check blood glucose levels 4 times/day. Back to back meals reveal effectiveness of bolus dosing. The blood glucose data is used to determine insulin doses and confirm symptoms for hypoglycemia and hyperglcyemia. The blood glucose data is used to determine insulin doses, and confirm symptoms for hypoglycemia and hyperglcyemia. 5. [facility]. Contact office if any issues or concerns with patterns of hypoglycemia, hyperglycemia, or diabetes medication issues. 6. Prescriptions: per patient no refills needed today 10-05-2021 Sep, Dietary counseling and surveillance (ICD-10 - Z71.3) Learning About Healthy Weight material was published to portal Sep, Hyperlipidemia (ICD-10 - E78.5) 07/2020 ldl 29.4 at goal- f/u with pcp Sep, HTN (hypertension) (ICD-10 - I10) f/u with pcp Sep, intermediate manager current use of insulin (ICD-10 - Z79.4) Sep, Vitamin B 12 deficiency (ICD-10 - E53.8) 07/2020 Vit b 12 455 at goal Sep, CKD (chronic kidney disease) stage 3, GFR 30-59 ml/min (ICD-10 - N18.3) keep f/u with nephrology Sep, Type 2 diabetes mellitus with diabetic neuropathy, unspecified (ICD-10 - E11.40) Sep, Hypoglycemia (ICD-10 - E16.2) BENEFIT FROM LIBRE2 with alarms, ordered thru [employer] med. discussion and merck handout on hypoglycemia and treament. Sep, BMI 35.0-35.9,adult (ICD-10 - Z68.35) Sep, Other I have spent 60 minutes with this patient and over 50% of the visit was counseling done by myself, Tyesha JUDD. transitioned to Ozempic from Trulicity for added weight loss benefit, increased glycemic control [facility] Other 11-08-2021 Evaluation note* Encounter Date Diagnosis Assessment Notes Treatment Notes Treatment Clinical Notes Sep, Facet arthritis of lumbar region (ICD-10 - M46.96) Our options are significantly limited due to Coumadin and his renal function. After discussion, we will switch from Tylenol 3 to hydrocodone/acetaminop hen, and update lumbar x-rays. We will call with results, and make future recommendations from there. Options would include pain management referral or physical therapy [facility] Other 05-31-2021 NoteMR#: [id number] I [facility] Pt. Name: Adwoa Porter Admitted: 04/12/2021 Discharged: 04/17/2021 Date of : 1955 Physician: Balbir Stubbs MD DISCHARGE SUMMARY PRINCIPAL DISCHARGE DIAGNOSES: 1. Lkies-lr-mylaxuz heart failure with reduced ejection fraction. 2. History of atrial fibrillation. 3. Chronic Coumadin use. 4. Chronic obstructive pulmonary disease. 5. Coronary artery disease. 6. Type 2 diabetes with insulin use. 7. Recurrent hypoglycemia. 8. Hyperlipidemia. 9. Hypertension. 10. History of paroxysmal ventricular tachycardia. 11. Obstructive sleep apnea, with CPAP use. 12. History of anxiety. 13. Peripheral arterial disease. HOSPITAL COURSE: The patient is a 65-year-old man with known severe systolic heart failure with a prior ejection fraction of 15%. He presented to outside facility for decompensated heart failure. The patient was transferred to [facility] on a bumetanide infusion. He was evaluated by Cardiology and continued on dobutamine infusion. He had rigorous diuresis response of the Bumex infusion was converted to initially IV push followed by oral bumetanide with a good response. Over the course of the patient's 5-day hospitalization, 20.5 L of fluid were removed. The patient felt substantially improved. The patient was evaluated by Physical Therapy. It was recommended that he consider acute rehab for further therapy. The patient declined placement in acute rehab or any other nursing facility, insisting on going home. The patient also was treated with a course of doxycycline for a possible cellulitis of his lower extremities. This was improved with antibiotics and diuresis. PHYSICAL EXAMINATION ON DISCHARGE: VITAL SIGNS: Temperature 97 degrees, blood pressure 117/79, heart rate 88, respirations 16, saturating 99% on 2 L. GENERAL: The patient is alert and oriented, in no acute distress. HEART: Regular rate and rhythm. LUNGS: Decreased global aeration. ABDOMEN: Obese, nontender. EXTREMITIES: With trace bilateral lower extremity edema. DISCHARGE MEDICATIONS: Please see medicine reconciliation list. DISCHARGE INSTRUCTIONS: 1. The patient's medications were adjusted per Cardiology. 2. The patient had decrease in his Lantus insulin due to reports of extensive recurrent home hypoglycemia. If strongly occurs, follow up with his electrical and instrumentation mechanic as soon as possible. 3. The patient was strongly encouraged to consider acute rehab, however, he declined and insisted on returning to home. Total time spent on discharge coordination 45 minutes. Electronically Signed by: Balbir Stubbs MD 04/27/2021 01:19 P Balbir Stubbs MD Date Dict: 04/17/2021/03:44 P/Balbir Stubbs MD Date Trans: 04/18/2021 12:53 A/mmo [id number] cc: Vinnie Stewart M.D. [facility] [address] [place] [id number] Lowell Craft M.D. [address] [place], [place] [address] [facility] [id number] Health AdministrationDischarge summary Author Yakov To [facility] February 15, 2023 2:13pm Note Date/Time February 15, 2023 2:1 3pm [facility] [address] [place], [place] [id number] Discharge Summary Signed Patient: Adwoa Porter MR#: [id number] : 1955 Acct:[id number] Age/Sex: 67 / M Adm Date: 3 Loc: Room: [address] [place] [address]: Yakov To DO Copies to: DO Vinnie Perry DO~ Providers Date of Admission: 02/13/23 Date of Discharge: 02/14/23 Discharging Provider: Yakov To Primary Care Provider: Vinnie Stewart Consults: 02/13/23 19:37 Consult to Occupational Therapy Routine Consult to Physical Therapy Routine Discharge Diagnosis (1) Hypokalemia: (2) Hyperglycemia: (3) Elevated serum creatinine: (4) Obstructive sleep apnea: (5) Paroxysmal A-fib: (6) CKD (chronic kidney disease) stage 3, GFR 30-59 ml/min: (7) Cardiomyopathy: (8) Metabolic alkalosis with respiratory acidosis: Final Diagnosis Final Discharge Diagnosis: As above Summary Hospital Course Hospital course: Mr. Brink is a 67-year-old male who was admitted to hospital the afternoon of February 13 with a chief complaint of elevated blood sugars and low potassium by his electrical and instrumentation mechanic. Upon arrival to the hospital his blood glucose was above 500 and his potassium was found be 2.9. He did receive large doses of oral and IV potassium the night of admission, he was given IV insulin as well as a liter bolus of IV fluids for maintenance fluids. Ultimately patient was quite dehydrated upon admission likely secondary to osmotic diuresis which also causedhim to have low potassium. His home insulin regimen was continued while he was admitted once his blood sugar stabilized and his potassium stabilized as well, he was given p.o. potassium supplements throughout his admission, His creatininenormalized back to his baseline of 1.6. The afternoon of February 14 his potassiumwas 3.7, his blood glucose was 197 which is elevated however his A1c is 10.4 andlikely close to his baseline. This can be addressed in the outpatient setting as the patient follows up with his diabetic doctor often. He was given potassium supplements, he takes 10 mill equivalents daily I did double his to 20mill equivalents daily and discharged him with instructions to have a repeat BMPin 5 days sent to his family physician. Condition Condition at Discharge: Stable Time Spent with Patient Time spent providing/coordinating discharge services (# min): 25 Diagnostic Studies Completed and Pending Studies Labs on day of discharge: 02/14/23 16:57: Potassium 3.7 02/14/23 16:56: POC Glucose 197 Exam Physical Exam Vital Signs: Temp Pulse Resp BP Pulse Ox O2 Del Method 97.5 F L 86 16 137/80 98 Room Air 02/14/23 15:48 02/14/23 15:48 02/14/23 15:48 02/14/23 15:48 02/14/23 15:48 03/29/23 15:48 Narrative: General: Awake alert, no acute distress. Family at bedside. Laying in bed comfortably. HEENT: head atraumatic, normocephalic, moist mucous membranes Neck: supple no masses, no lymphadenopathy CVS: regular rate and rhythm, no murmurs or gallops Respiratory: clear to auscultation bilaterally, no wheezing or crackles, symmetric expansion GI: soft, nondistended, nontender, positive bowel sounds with no organomegaly Extremity: moves all extremities, no restrictions of movements, no calf tenderness, no edema. There are multiple abrasions and various stages of healing. Most recently is on his right upper extremity, these are scabbed over. 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 He is status post left great toe amputation. Neuro: AOx3, CN II-VII intact. Moves all extremities in all planes of motion. Skin: dry, intact no rashes or lesions Discharge Plan Discharge Plan Patient Disposition: Home Health Services Activity: No Activity Restriction Diet: Diabetic and Low-Sodium Additional Instructions: Continue to monitor glucose levels as before Home health to manage: -RN/PT/OT to eval and treat -Monitor VS per protocol -Fall precautions -Perform cardiovascular assessments -Assist with medication management and education -Obtain PT/INR in 2 days as ordered-- send results to Dr. Sushil Stout -Change dressings daily: *Left knee abrasions- Clean with Vashe and pat dry. Skin prep the demetrice wound. Apply Polymem AG to the wound bed. Secure with opsite. -Wound care daily: *Right upper arm skin tears- Clean with NS and pat dry. Apply Hydrogel to the wound bed. Top with Adaptic and 4x4 gauze. Secure with conform and paper tape. Instructions: Heart Failure, Adult (DC) Prescriptions: Continued atorvastatin 80 mg Tablet 80 mg PO DAILY carvedilol 25 mg Tablet 25 mg PO BID albuterol sulfate 2.5 mg /3 mL (0.083 %) Solution For Nebulization 2.5 mg INHALATION Q4H PRN (Reason: breathing) hydrocodone-acetaminophen 5-325 mg Tablet 1 tab PO TID PRN (Reason: Pain) gabapentin 400 mg Capsule 400 mg PO BID aspirin 81 mg Tablet,Delayed Release (Dr/Ec) 81 mg PO DAILY spironolactone 25 mg Tablet 25 mg PO DAILY amitriptyline 25 mg Tablet 25 mg PO QHS isosorbide dinitrate 20 mg Tablet 20 mg PO BID warfarin 5 mg Tablet 5 mg PO DIRECTED nitroglycerin [Nitrostat] 0.4 mg Tablet, Sublingual 0.4 mg sublingual DIRECTED PRN (Reason: Chest Pain) bumetanide 1 mg Tablet 2 mg PO BID hydralazine 50 mg Tablet 50 mg PO TID digoxin 125 mcg (0.125 mg) Tablet 125 mcg PO DAILY albuterol sulfate 90 mcg/actuation Hfa Aerosol Inhaler 2 puff INHALATION Q4H PRN (Reason: breathing) budesonide-formoterol [Symbicort] 160-4.5 mcg/actuation Hfa Aerosol Inhaler 2 puff INHALATION BID insulin glargine [Basaglar KwikPen U-100 Insulin] 100 unit/mL (3 mL) Insulin Pen 63 unit SUBCUT BID cholecalciferol (vitamin D3) [Vitamin D3] 50 mcg (2,000 unit) Tablet 50 mcg PO DAILY Humalog KwikPen Insulin 200 unit/mL (3 mL) Insulin Pen See Rx Instructions .ROUTE .COMPLEX Rx Instructions: small meals-34 units, medium meal--36 units, large meal--30 units TID Trulicity 4.5 mg/0.5 mL Pen Injector See Rx Instructions .ROUTE .COMPLEX Rx Instructions: take as directed cyanocobalamin (vitamin B-12) [Vitamin B-12] 1,000 mcg Tablet 1,000 mcg PO DAILY Qty: 30 6RF ferrous sulfate 325 mg (65 mg iron) Tablet 325 mg PO DAILY Qty: 30 6RF metolazone 2.5 mg tablet 2.5 mg PO QWEEK Patient Comments: TAKE 1 TABLET BY MOUTH EVERY 7 DAYS furosemide 20 mg tablet 60 mg PO BID Patient Comments: TAKE 3 TABLETS BY MOUTH ONCE DAILY IN THE EVENING Farxiga 10 mg tablet 10 mg PO DAILY Patient Comments: TAKE 1 TABLET BY MOUTH ONCE DAILY Changed potassium chloride [Klor-Con 10] 10 mEq Tablet Extended Release 20 meq PO DAILY Qty: 14 0RF Other Ambulatory Orders: Basic Metabolic Panel (Routine) Timeframe: 20230219 Location: Determined by Patient Ordered By: Yakov To Prothrombin Time INR (Routine) Timeframe: 2 Days Location: Determined by Patient Ordered By: Yakov To Initiate Home Health (Routine) Timeframe: 20230214 Location: Determined by Patient Ordered By: Yakov To Follow Up: Vinnie Stewart DO [Primary Care Provider] - 02/16/23 11:30 am (You have been scheduled for a follow up appointment for the following date and time, please call to reschedule if needed.) Documented By: Yakov To DO 02/15/23 1410 Signed By: <Electronically signed by Yakov To DO> 02/15/23 1413 [facility] Work Phone: Evaluation noteNo [place] Other Evaluation note* Diagnosis Onset Date Resolution Status Leukocytosis acute [facility] Work Phone: Evaluation note* Diagnosis Onset Date Resolution Status Leukocytosis acute SHIRA (acute kidney injury) [place] Cardiomyopathy acute Elevated serum creatinine [place] Elevated troponin acute Hyperglycemia acute Hypokalemia acute Hyponatremia acute Metabolic alkalosis with respiratory acidosis acute CKD (chronic kidney disease) stage 3, GFR 30-59 ml/min chronic 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 Paroxysmal A-fib chronic [facility] Work Phone: History and physical note Author Yakov To [facility] February 13, 2023 9:35pm Note Date/Time February 13, 2023 9:2 3pm [facility] [address] [place] [address] Hospitalist H&P Signed Patient: Adwoa Porter MR#: [id number] : 1955 Acct:[id number] Age/Sex: 67 / M Adm Date: 3 Loc: Room: [address] [place] [address] Type: ADM IN Attending Dr: Yakov To DO Copies to: DO Vinnie Perry DO~ HPI DATE OF EXAMINATION: 02/13/23 CHIEF COMPLAINT: High glucose HISTORY OF PRESENT ILLNESS: Mr Porter is a 67-year-old male past medical history of uncontrolled type 2 diabetes, CKD, PAD status post left great toe amputation due to diabetes complication, CHF, COPD, ISAK who presents hospital today at the request of his diabetic doctor . He states his glucose has been elevated last couple days in the 500 range, he saw his electrical and instrumentation mechanic today and because he knew his glucose is elevated he actually skipped breakfast today and when he went to the appointment it was still elevated in the 590 range and he was subsequently told to go to the hospital. The patient states he was completely asymptomatic and denies any complaints at all. Low upon my assessment the patient already received IV insulin, fluids and potassium replenishment and he stated I do actually feel better now than he did earlier, I did not realize I did not feel my best earlier Review of Systems Review of Systems All other systems reviewed & are negative unless noted below or in HPI PMFSH Vaccinated for COVID-19?: Yes Medical History (Updated 02/13/23 @ 21:31 by Yakov To DO) Amputated toe of left foot Amputation of toe left fifth toe Appendicitis Cardiac defibrillator in place Congestive heart failure COPD (chronic obstructive pulmonary disease) Diabetes mellitus HTN (hypertension) Hypercholesteremia Numbness and tingling in both hands Numbness and tingling of both feet On home O2 3L Surgical History H/O cardiac catheterization History of appendectomy History of cataract extraction bilateral Family History Other CAD (coronary artery disease) Diabetes Social History Smoking Status: Former smoker Tobacco Type: cigarettes Substance Use Type: Former User and Alcohol Social History Comments: lives in a [facility] - with Promise (friend) Meds Medications and Allergies Allergies GABRIELA Inhibitors Adverse Reaction (Verified 02/13/23 15:44) Cough Home Medications albuterol sulfate 2.5 mg/3 mL (0.083 %) solution for nebulization 2.5 mg inhalation Q4H PRN breathing 04/10/22 [History Confirmed 02/13/23] albuterol sulfate 90 mcg/actuation aerosol inhaler 2 puff inhalation Q4H PRN breathing 04/10/22 [History Confirmed 02/13/23] amitriptyline 25 mg tablet 25 mg PO QHS 04/10/22 [History Confirmed 02/13/23] aspirin 81 mg tablet,delayed release 81 mg PO DAILY 04/10/22 [History Confirmed 02/13/23] atorvastatin 80 mg tablet 80 mg PO DAILY 04/10/22 [History Confirmed 02/13/23] budesonide-formoterol HFA 160 mcg-4.5 mcg/actuation aerosol inhaler (Symbicort) 2 puff inhalation BID 04/10/22 [History Confirmed 02/13/23] bumetanide 1 mg tablet 2 mg PO BID 04/10/22 [History Confirmed 02/13/23] carvedilol 25 mg tablet 25 mg PO BID 04/10/22 [History Confirmed 02/13/23] cholecalciferol (vitamin D3) 50 mcg (2,000 unit) tablet (Vitamin D3) 50 mcg PO DAILY 04/10/22 [History Confirmed 02/13/23] digoxin 125 mcg (0.125 mg) tablet 125 mcg PO DAILY 04/10/22 [History Confirmed 02/13/23] dulaglutide 4.5 mg/0.5 mL subcutaneous pen injector (Trulicity) See Rx Instructions .Route .COMPLEX 04/10/22 [History Confirmed 12/04/22] gabapentin 400 mg capsule 400 mg PO BID 04/10/22 [History Confirmed 02/13/23] hydralazine 50 mg tablet 50 mg PO TID 04/10/22 [History Confirmed 12/04/22] hydrocodone 5 mg-acetaminophen 325 mg tablet 1 tab PO TID PRN Pain 04/10/22 [History Confirmed 02/13/23] insulin glargine 100 unit/mL (3 mL) subcutaneous pen (Basaglar KwikPen U-100 Insulin) 63 unit subcut BID 04/10/22 [History Confirmed 02/13/23] insulin lispro 200 unit/mL (3 mL) subcutaneous pen (Humalog KwikPen U-200 Insulin) See Rx Instructions .Route .COMPLEX 04/10/22 [History Confirmed 02/13/23] isosorbide dinitrate 20 mg tablet 20 mg PO BID 04/10/22 [History Confirmed 02/13/23] nitroglycerin 0.4 mg sublingual tablet (Nitrostat) 0.4 mg sublingual DIRECTEDPRN Chest Pain 04/10/22 [History Confirmed 02/13/23] potassium chloride 10 mEq tablet,extended release (Klor-Con) 10 meq PO DAILY 04/10/22 [History Confirmed 02/13/23] spironolactone 25 mg tablet 25 mg PO DAILY 04/10/22 [History Confirmed 02/13/23] warfarin 5 mg tablet 5 mg PO DIRECTED 04/10/22 [History Confirmed 02/13/23] cyanocobalamin (vitamin B-12) 1,000 mcg tablet (Vitamin B-12) 1,000 mcg PO DAILY#30 tabs 06/06/22 [Rx Confirmed 02/13/23] ferrous sulfate 325 mg (65 mg iron) tablet 325 mg PO DAILY #30 tabs 06/06/22 [Rx Confirmed 02/13/23] dapagliflozin 10 mg tablet (Farxiga) 10 mg PO DAILY 02/13/23 [History Confirmed 02/13/23] furosemide 20 mg tablet 60 mg PO BID 02/13/23 [History Confirmed 02/13/23] metolazone 2.5 mg tablet 2.5 mg PO QWEEK 02/13/23 [History Confirmed 02/13/23] Exam Physical Exam Vital Signs: Temp Pulse Resp BP Pulse Ox O2 Del Method 97.8 F 86 16 146/79 H 94 L Room Air 02/13/23 15:38 02/13/23 20:36 02/13/23 20:36 02/13/23 20:36 02/13/23 20:36 02/13/23 20:36 Narrative: General: Awake alert, no acute distress. Family at bedside. Laying in bed comfortably. HEENT: head atraumatic, normocephalic, moist mucous membranes Neck: supple no masses, no lymphadenopathy CVS: regular rate and rhythm, no murmurs or gallops Respiratory: clear to auscultation bilaterally, no wheezing or crackles, symmetric expansion GI: soft, nondistended, nontender, positive bowel sounds with no organomegaly Extremity: moves all extremities, no restrictions of movements, no calf tenderness, no edema. There are multiple abrasions and various stages of healing. Most recently is on his right upper extremity, these are scabbed over. 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 He is status post left great toe amputation. Neuro: AOx3, CN II-VII intact. Moves all extremities in all planes of motion. Skin: dry, intact no rashes or lesions Results Lab Results Labs: Laboratory Last Values Corrected WBC 12.0 X10E3/uL (4.1-10.5) H 02/13/23 16:49 Uncorrected WBC Count 12.0 x10E3/uL (4.1-10.5) H 02/13/23 16:49 RBC 5.72 X10E6/uL (3.90-5.60) H 02/13/23 16:49 Hgb 16.6 g/dL (13.0-17.0) 02/13/23 16:49 Hct 48.8 % (38.8-50.0) 02/13/23 16:49 MCV 85.2 fl (83.5-101) 02/13/23 16:49 MCH 29.0 pg (27.5-35.2) 02/13/23 16:49 MCHC 34.0 g/dL (32.5-35.6) 02/13/23 16:49 RDW 17.9 % (12.0-14.8) H 02/13/23 16:49 Plt Count 218 x10E3/uL (150-450) 02/13/23 16:49 MPV 8.6 fl (6.6-10.1) 02/13/23 16:49 Neut % (Auto) 70.8 % (.) 02/13/23 16:49 Lymph % (Auto) 17.7 % (.) 02/13/23 16:49 [place] % (Auto) 8.0 % (.) 02/13/23 16:49 Eos % (Auto) 2.9 % (.) 02/13/23 16:49 Baso % (Auto) 0.6 % (.) 02/13/23 16:49 Nucleat RBC Rel Count 0.1 /100 WBC (0-0.5) 02/13/23 16:49 Neut # (Auto) 8.5 x10E3/uL (1.8-7.7) H 02/13/23 16:49 Lymph # (Auto) 2.1 x10E3/uL (1.00-4.8) 02/13/23 16:49 [place] # (Auto) 1.0 x10E3/uL (0.0-0.8) H 02/13/23 16:49 Eos # (Auto) 0.4 x10E3/uL (0.0-0.45) 02/13/23 16:49 Baso # (Auto) 0.1 x10E3/uL (0.0-0.2) 02/13/23 16:49 Monocyte Dist Width 19.79 % (0.00-20.00) 02/13/23 16:49 PT 26.1 Seconds (9.0-12.9) H 02/13/23 17:31 INR 2.3 02/13/23 17:31 APTT 38.3 Seconds (25.1-36.5) H 02/13/23 17:31 Sample Site Venous 02/13/23 17:03 ABG pH 7.42 (7.35-7.45) 02/13/23 17:03 ABG pCO2 49.4 mmHg (35.0-45.0) H 02/13/23 17:03 ABG pO2 48.2 mmHg (80.0-100.0) L* 02/13/23 17:03 ABG HCO3 31.2 mmol/L (23.0-29.0) H 02/13/23 17:03 ABG Total CO2 32.7 mmol/L (23.0-27.0) H 02/13/23 17:03 ABG O2 Saturation 83.4 % (95.0-100.0) L 02/13/23 17:03 ABG O2 Content 9.0 mmol/L (6.6-9.7) 02/13/23 17:03 ABG Base Excess 5.2 mmol/L (-3.0-3.0) H 02/13/23 17:03 FiO2 21 % 02/13/23 17:03 Critical Value 02/13/23 17:03 PHA Creatinine Clear 39.26 02/13/23 16:49 Sodium 129 mmol/L (136-145) L 02/13/23 16:49 Potassium 2.9 mmol/L (3.5-5.1) L* 02/13/23 16:49 Chloride 85 mmol/L (98-107) L 02/13/23 16:49 Carbon Dioxide 31.6 mmol/L (21.0-31.0) H 02/13/23 16:49 Anion Gap 15.3 mEq/L (6.0-15.0) H 02/13/23 16:49 BUN 53 mg/dL (7-25) H 02/13/23 16:49 Creatinine 2.06 mg/dL (0.70-1.30) H 02/13/23 16:49 Est GFR (CKD-EPI) 34.441 02/13/23 16:49 Glucose 400 mg/dL (70-100) H 02/13/23 16:49 POC Glucose 76 mg/dl 02/13/23 20:14 POC Glucose Comment 02/13/23 15:44 Calcium 9.3 mg/dL (8.6-10.3) 02/13/23 16:49 Magnesium 2.5 mg/dL (1.9-2.7) 02/13/23 16:49 Total Bilirubin 1.3 mg/dl (0.3-1.0) H 02/13/23 16:49 AST 32 U/L (13-39) 02/13/23 16:49 ALT 21 U/L (7-52) 02/13/23 16:49 Alkaline Phosphatase 98 U/L (34-104) 02/13/23 16:49 Troponin I High Sens 69.4 pg/mL (0.0-20.0) H* 02/13/23 16:49 Total Protein 7.9 gm/dL (6.4-8.9) 02/13/23 16:49 Albumin 4.3 gm/dL (3.5-5.7) 02/13/23 16:49 Globulin 3.6 gm/dL 02/13/23 16:49 Albumin/Globulin Ratio 1.2 02/13/23 16:49 Urine Color Yellow (Yellow) 02/13/23 15:49 Urine Appearance Clear (Clear) 02/13/23 15:49 Urine pH 6.0 (5.0-9.0) 02/13/23 15:49 Ur Specific [place] 1.018 (1.001-1.030) 02/13/23 15:49 Urine Protein Negative mg/dL (Negative) 02/13/23 15:49 Urine Glucose (UA) >=1000 mg/dL (Normal) H 02/13/23 15:49 Urine Ketones Negative (Negative) 02/13/23 15:49 Urine Occult Blood Negative (Negative) 02/13/23 15:49 Urine Nitrite Negative (Negative) 02/13/23 15:49 Urine Bilirubin Negative (Negative) 02/13/23 15:49 Urine Urobilinogen Normal mg/dL (Normal) 02/13/23 15:49 Ur Leukocyte Esterase Negative (Negative) 02/13/23 15:49 B-Hydroxybutyrate 0.10 mmol/L (0.02-0.27) 02/13/23 16:49 ABG Interpretation ABG results: 02/13/23 17:03 ABG pH 7.42 ABG pCO2 49.4 H ABG pO2 48.2 L* ABG HCO3 31.2 H ABG Total CO2 32.7 H ABG O2 Saturation 83.4 L ABG O2 Content 9.0 ABG Base Excess 5.2 H A&P - Hospitalist Assessment/Plan (1) Hypokalemia: Plan: ? It is 2.9 on admission, he was here in November and it was 4.3 ? High suspicion for osmotic diuresis due to hyperglycemia causing increased potassium losses through his urine ? Magnesium in the high normal range at 2.5 ? He received 40 mill equivalents p.o. potassium in the ED, he will receive another p.o. dose tonight as well as IV piggyback of 40 mill equivalents. ? Repeat potassium ordered for midnight ? We will defer treatment of his hyperglycemia any further given his hypokalemia, once potassium is stabilized we will monitor closely while giving insulin to correct his glucose. (2) Hyperglycemia: Plan: See above, glucose checks 3 times daily AC ? Patient is on a dose of 52 units Lantus in the morning and 50 units Lantus in the evening ? His mealtime insulin is 34, 36, or 38 depending on the size of his meal. ? A1c pending (3) Elevated serum creatinine: Plan: Likely due to dehydration secondary to osmotic diuresis, not technically SHIRA buthis baseline is around 1.6 and presenting today is 2.06 ? Trend morning BMPs (4) Obstructive sleep apnea: Plan: ? States he is compliant, respiratory notified for nighttime CPAP use (5) Paroxysmal A-fib: Plan: ? Currently V paced on monitor, not sure of his underlying atrial rhythm. Pharmacy consulted to dose warfarin (6) CKD (chronic kidney disease) stage 3, GFR 30-59 ml/min: (7) Cardiomyopathy: (8) Metabolic alkalosis with respiratory acidosis: Plan: Secondary to COPD and ISAK, he has primary respiratory acidosis with metabolic compensation Plan ? DVT prophylaxis with warfarin ? Diabetic diet ? Full code Documented By: Yakov To DO 02/13/232120 Signed By: <Electronically signed by Yakov To, > 02/13/232134 [facility] Work Phone: [facility] general Narrative - Reported* Type Description Date Medical History Triple vessel CAD Medical History ischemic cardiomyopa thy with ejection fraction 10-15% Medical History Cardiac arrythmias with insertio n of AICD device Medical History hypertension Medical History hyperlipidemia Medical History NIDDM Medical History COPD Medical History nicotine dependence Medical History cervical spinal stenosis Medical History hoarseness - mass removed by Dr. Marie Medical History Obstructive sleep apnea (adult) (pediatric) Medical History Woound on the left ankle with wo und pump Medical History diabetic neuropathy Medical History type II diabetes Medical History ventricylar tachycardia Medical History diverticulitis Medical History COVID 11/2020 Medical History CHF, AND A-FIB Surgical History Cardiac catherization (07/2010) Surgical History AICD insertion (11/2010) Surgical History right sided heart cath - [place] 10/2013 Surgical History appendectomy Surgical History rt heart cath 05/11/16 Surgical History pacemaker 07/2016 Surgical History SKIN GRAFT-FROM LEFT LEG TO LEF T FOOT 10/2018 Surgical History LEFT SMALL TOE AMPUTATION WITH SOME FOOT BONE 11/2018 Surgical History COLONOSCOPY AND EGD [facility] Surgical History amputation left fifth toe Surgical History Ankle I/D LEFT 01/2020 Surgical History Left heel skin graft 03/29/2020 Surgical History SKIN GRAFT TO LEFT FOOT 03/2020 Surgical History CATARACT REMOVED ON RIGHT EYE Surgical History CATARACT REMOVED FROM LEFT EYE 06/2021 Hospitalization History see surgical hx Hospitalization History rt. heart cath [facility]- [facility] 05/11/16 Hospitalization History Water retention/ [facility] 02/2017 Hospitalization History [facility] 11/2017 Hospitalization History INFECTION IN LEFT SMALL TOE AND FOOT 11/2018 Hospitalization History [facility] -- ICU -- COPD, SMAL L WOUND ON LEFT FOOT 12/2019 Hospitalization History COPD [facility] [place] 12/2019 Hospitalization History Ankle wound 01/2020 Hospitalization History COVID 11/2020 Hospitalization History A-FIB, CHF, KIDNEY ISSUE S 03/2021 [facility] Other History general Narrative - Reported* Type Description Date Medical History Triple vessel CAD Medical History ischemic cardiomyopa thy with ejection fraction 10-15% Medical History Cardiac arrythmias with insertio n of AICD device Medical History hypertension Medical History hyperlipidemia Medical History NIDDM Medical History COPD Medical History nicotine dependence Medical History cervical spinal stenosis Medical History hoarseness - mass removed by Dr. Marie Medical History Obstructive sleep apnea (adult) (pediatric) Medical History Woound on the left ankle with wo und pump Medical History diabetic neuropathy Medical History type II diabetes Medical History ventricylar tachycardia Medical History diverticulitis Medical History COVID 11/2020 Medical History CHF, AND A-FIB Medical History VERTIGO Surgical History Cardiac catherization (07/2010) Surgical History AICD insertion (11/2010) Surgical History right sided heart cath - [place] 10/2013 Surgical History appendectomy Surgical History rt heart cath 05/11/16 Surgical History pacemaker 07/2016 Surgical History SKIN GRAFT-FROM LEFT LEG TO LEF T FOOT 10/2018 Surgical History LEFT SMALL TOE AMPUTATION WITH SOME FOOT BONE 11/2018 Surgical History COLONOSCOPY AND EGD [facility] Surgical History amputation left fifth toe Surgical History Ankle I/D LEFT 01/2020 Surgical History Left heel skin graft 03/29/2020 Surgical History SKIN GRAFT TO LEFT FOOT 03/2020 Surgical History CATARACT REMOVED ON RIGHT EYE Surgical History CATARACT REMOVED FROM LEFT EYE 06/2021 Hospitalization History see surgical hx Hospitalization History rt. heart cath [facility] St[facility]- [facility] 05/11/16 Hospitalization History Water retention/ [facility] 02/2017 Hospitalization History [facility] 11/2017 Hospitalization History INFECTION IN LEFT SMALL TOE AND FOOT 11/2018 Hospitalization History [facility] -- ICU -- COPD, SMAL L WOUND ON LEFT FOOT 12/2019 Hospitalization History COPD [facility] [place] 12/2019 Hospitalization History Ankle wound 01/2020 Hospitalization History COVID 11/2020 Hospitalization History A-FIB, CHF, KIDNEY ISSUE S 03/2021 [facility] Other [place] general Narrative - Reported* Type Description Date Medical History Triple vessel CAD Medical History ischemic cardiomyopa thy with ejection fraction 10-15% Medical History Cardiac arrythmias with insertio n of AICD device Medical History hypertension Medical History hyperlipidemia Medical History NIDDM Medical History COPD Medical History nicotine dependence Medical History cervical spinal stenosis Medical History hoarseness - mass removed by Dr. 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 failure w/hypoxia, acute on systolic chronic HF Surgical History Cardiac catherization (07/2010) Surgical History AICD insertion (11/2010) Surgical History right sided heart cath - [place] 10/2013 Surgical History appendectomy Surgical History rt heart cath 05/11/16 Surgical History pacemaker 07/2016 Surgical History SKIN GRAFT-FROM LEFT LEG TO LEF T FOOT 10/2018 Surgical History LEFT SMALL TOE AMPUTATION WITH SOME FOOT BONE 11/2018 Surgical History COLONOSCOPY AND EGD [facility]RIS Surgical History amputation left fifth toe Surgical History Ankle I/D LEFT 01/2020 Surgical History Left heel skin graft 03/29/2020 Surgical History SKIN GRAFT TO LEFT FOOT 03/2020 Surgical History CATARACT REMOVED ON RIGHT EYE Surgical History CATARACT REMOVED FROM LEFT EYE 06/2021 Hospitalization History see surgical hx Hospitalization History rt. heart cath Rex Stout- [facility] 05/11/16 Hospitalization History Water retention/ [facility] 02/2017 Hospitalization History [facility] 11/2017 Hospitalization History INFECTION IN LEFT SMALL TOE AND FOOT 11/2018 Hospitalization History [facility] -- ICU -- COPD, SMAL L WOUND ON LEFT FOOT 12/2019 Hospitalization History COPD [facility] [place] 12/2019 Hospitalization History Ankle wound 01/2020 Hospitalization History COVID 11/2020 Hospitalization History A-FIB, CHF, KIDNEY ISSUE S 03/2021 [facility] Other History general Narrative - Reported* Type Description Date Medical History Triple vessel CAD Medical History ischemic cardiomyopa thy with ejection fraction 10-15% Medical History Cardiac arrythmias with insertio n of AICD device Medical History hypertension Medical History hyperlipidemia Medical History NIDDM Medical History COPD Medical History nicotine dependence Medical History cervical spinal stenosis Medical History hoarseness - mass removed by Dr. 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 failure w/hypoxia, acute on systolic chronic HF Surgical History Cardiac catherization (07/2010) Surgical History AICD insertion (11/2010) Surgical History right sided heart cath - [place] 10/2013 Surgical History appendectomy Surgical History rt heart cath 05/11/16 Surgical History pacemaker 07/2016 Surgical History SKIN GRAFT-FROM LEFT LEG TO LEF T FOOT 10/2018 Surgical History LEFT SMALL TOE AMPUTATION WITH SOME FOOT BONE 11/2018 Surgical History COLONOSCOPY AND EGD [facility] Surgical History amputation left fifth toe Surgical History Ankle I/D LEFT 01/2020 Surgical History Left heel skin graft 03/29/2020 Surgical History SKIN GRAFT TO LEFT FOOT 03/2020 Surgical History CATARACT REMOVED ON RIGHT EYE Surgical History CATARACT REMOVED FROM LEFT EYE 06/2021 Hospitalization History see surgical hx Hospitalization History rt. heart cath Rex Stout- [facility] 05/11/16 Hospitalization History Water retention/ [facility] 02/2017 Hospitalization History [facility] 11/2017 Hospitalization History INFECTION IN LEFT SMALL TOE AND FOOT 11/2018 Hospitalization History [facility] -- ICU -- COPD, SMAL L WOUND ON LEFT FOOT 12/2019 Hospitalization History COPD [facility] [place] 12/2019 Hospitalization History Ankle wound 01/2020 Hospitalization History COVID 11/2020 Hospitalization History A-FIB, CHF, KIDNEY ISSUE S 03/2021 Hospitalization History [facility] [facility] 01/2023 [facility] Other History general Narrative - Reported* Type Description Date Medical History Triple vessel CAD Medical History ischemic cardiomyopa thy with ejection fraction 10-15% Medical History Cardiac arrythmias with insertio n of AICD device Medical History hypertension Medical History hyperlipidemia Medical History NIDDM Medical History COPD Medical History nicotine dependence Medical History cervical spinal stenosis Medical History hoarseness - mass removed by Dr. 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 failure w/hypoxia, acute on systolic chronic HF Medical History [facility]- r ight great toe bleeding (not stopping) Surgical History Cardiac catherization (07/2010) Surgical History AICD insertion (11/2010) Surgical History right sided heart cath - [place] 10/2013 Surgical History appendectomy Surgical History rt heart cath 05/11/16 Surgical History pacemaker 07/2016 Surgical History SKIN GRAFT-FROM LEFT LEG TO LEF T FOOT 10/2018 Surgical History LEFT SMALL TOE AMPUTATION WITH SOME FOOT BONE 11/2018 Surgical History COLONOSCOPY AND EGD [facility]RIS Surgical History amputation left fifth toe Surgical History Ankle I/D LEFT 01/2020 Surgical History Left heel skin graft 03/29/2020 Surgical History SKIN GRAFT TO LEFT FOOT 03/2020 Surgical History CATARACT REMOVED ON RIGHT EYE Surgical History CATARACT REMOVED FROM LEFT EYE 06/2021 Hospitalization History see surgical hx Hospitalization History rt. heart cath Rex Stout- [facility] 05/11/16 Hospitalization History Water retention/ [facility] 02/2017 Hospitalization History [facility] 11/2017 Hospitalization History INFECTION IN LEFT SMALL TOE AND FOOT 11/2018 Hospitalization History [facility] -- ICU -- COPD, SMAL L WOUND ON LEFT FOOT 12/2019 Hospitalization History COPD [facility] [place] 12/2019 Hospitalization History Ankle wound 01/2020 Hospitalization History COVID 11/2020 Hospitalization History A-FIB, CHF, KIDNEY ISSUE S 03/2021 Hospitalization History [facility] 01/2023 Hospitalization History [facility] discha rged 03-27-2023 [facility] Other History general Narrative - Reported* Type Description Date Medical History Triple vessel CAD Medical History ischemic cardiomyopa thy with ejection fraction 10-15% Medical History Cardiac arrythmias with insertio n of AICD device Medical History hypertension Medical History hyperlipidemia Medical History NIDDM Medical History COPD Medical History nicotine dependence Medical History cervical spinal stenosis Medical History hoarseness - mass removed by Dr. 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 failure w/hypoxia, acute on systolic chronic HF Medical History [facility]- r ight great toe bleeding (not stopping) Medical History pneumonia-[facility] 06-05 Medical History [facility]-7-2023 Surgical History Cardiac catherization (07/2010) Surgical History AICD insertion (11/2010) Surgical History right sided heart cath - [place] 10/2013 Surgical History appendectomy Surgical History rt heart cath 05/11/16 Surgical History pacemaker 07/2016 Surgical History SKIN GRAFT-FROM LEFT LEG TO LEF T FOOT 10/2018 Surgical History LEFT SMALL TOE AMPUTATION WITH SOME FOOT BONE 11/2018 Surgical History COLONOSCOPY AND EGD NORRIS Surgical History amputation left fifth toe Surgical History Ankle I/D LEFT 01/2020 Surgical History Left heel skin graft 03/29/2020 Surgical History SKIN GRAFT TO LEFT FOOT 03/2020 Surgical History CATARACT REMOVED ON RIGHT EYE Surgical History CATARACT REMOVED FROM LEFT EYE 06/2021 Hospitalization History see surgical hx Hospitalization History rt. heart cath [facility] St[facility]- [facility] 05/11/16 Hospitalization History Water retention/ [facility] 02/2017 Hospitalization History [facility] pital 11/2017 Hospitalization History INFECTION IN LEFT SMALL TOE AND FOOT 11/2018 Hospitalization History [facility] -- ICU -- COPD, SMAL L WOUND ON LEFT FOOT 12/2019 Hospitalization History COPD [facility] [place] 12/2019 Hospitalization History Ankle wound 01/2020 Hospitalization History COVID 11/2020 Hospitalization History A-FIB, CHF, KIDNEY ISSUE S 03/2021 Hospitalization History [facility] 01/2023 Hospitalization History [facility] discha rged 03-27-2023 Hospitalization History [facility] x2 7-2 023 [facility] Other History general Narrative - Reported* Type Description Date Medical History Triple vessel CAD Medical History ischemic cardiomyopa thy with ejection fraction 10-15% Medical History Cardiac arrythmias with insertio n of AICD device Medical History hypertension Medical History hyperlipidemia Medical History NIDDM Medical History COPD Medical History nicotine dependence Medical History cervical spinal stenosis Medical History hoarseness - mass removed by Dr. 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 failure w/hypoxia, acute on systolic chronic HF Medical History [facility]- r ight great toe bleeding (not stopping) Medical History pneumonia-[facility] 06-05 Medical History [facility]-7-2023 Medical History [id number] Surgical History Cardiac catherization (07/2010) Surgical History AICD insertion (11/2010) Surgical History right sided heart cath - [place] 10/2013 Surgical History appendectomy Surgical History rt heart cath 05/11/16 Surgical History pacemaker 07/2016 Surgical History SKIN GRAFT-FROM LEFT LEG TO LEF T FOOT 10/2018 Surgical History LEFT SMALL TOE AMPUTATION WITH SOME FOOT BONE 11/2018 Surgical History COLONOSCOPY AND EGD NORRIS Surgical History amputation left fifth toe Surgical History Ankle I/D LEFT 01/2020 Surgical History Left heel skin graft 03/29/2020 Surgical History SKIN GRAFT TO LEFT FOOT 03/2020 Surgical History CATARACT REMOVED ON RIGHT EYE Surgical History CATARACT REMOVED FROM LEFT EYE 06/2021 Hospitalization History see surgical hx Hospitalization History rt. heart cath Rex Stout- [facility] 05/11/16 Hospitalization History Water retention/ [facility] 02/2017 Hospitalization History [facility] 11/2017 Hospitalization History INFECTION IN LEFT SMALL TOE AND FOOT 11/2018 Hospitalization History [facility] -- ICU -- COPD, SMAL L WOUND ON LEFT FOOT 12/2019 Hospitalization History COPD [facility] [place] 12/2019 Hospitalization History Ankle wound 01/2020 Hospitalization History COVID 11/2020 Hospitalization History A-FIB, CHF, KIDNEY ISSUE S 03/2021 Hospitalization History [facility] 01/2023 Hospitalization History [facility] discha rged 03-27-2023 Hospitalization History [facility] x2 7-2 023 Hospitalization History [facility] 10-2 023 [facility] Other Progress note Author Ethan Cummings [facility] December 04, 2022 1:47pm Note Date/Time December 04, 2022 1 :44pm [facility] at [address] [address] Hem/Onc Follow Up Note - OP Signed Patient: JamariAdwoa MR#: [id number] : 1955 Acct:[id number] Age/Sex: 67 / M Type: REG RCR Copies to: MD Vinnie Charles, DO~ Date of Service: 12/04/2022 Time of Service: 13:42 - Assessment & Plan (1) Leukocytosis Plan: Elevated neutrophils predominantly Potentially reactive. Will monitor for now. Slightly low iron and b12. has been on supplementation for all of 2021 and dramatic improvement in both. he continues ferrous sulfate 325mg po daily, i told him not unreasonable to stopb12 and monitor, he can f/u prn if he like as well. in may 2022 he had negative BCR ABL to evaluate for CML. Follow Up Instructions: f/u prn. - History of Present Illness Chief Complaint: Patient is here for a 6 month follow up with labs for review. No concerns voiced at this time. HPI: 66-year-old male referred by his primary care provider Dr. Vinnie Stewart. Recent complaints of dizzy spells. Past medical history includes coronary artery disease, ischemic cardiomyopathy with ejection fraction of 10 to 15%, severe tricuspid regurgitation, cardiac arrhythmias, AICD, hypertension, hyperlipidemia, type 2 diabetes, COPD, cervicalspinal stenosis, obstructive sleep apnea, diabetic neuropathy, diverticulitis, atrial fibrillation. Outpatient medications include losartan, Jardiance, atorvastatin, gabapentin, carvedilol, spironolactone, albuterol, nitro, Symbicort, potassium, Coumadin 5 mg p.o. daily, vitamin D, hydralazine, Bumex, Imdur, aspirin 81 mg p.o. daily, amitriptyline, nebulizers, digoxin, Humalog insulin, Trulicity,. Labs from July 19, 2021 show white blood cell count of 11.4 with a hemoglobin of 12.6 and an MCV of 90.8. Platelet count is 235,000. His ferritin was 112, iron saturation of 25.6% Labs from 01/16/2022 showed a hemoglobin of 13.9 with an MCV of 91.2. White blood cell count of 12.9. Platelet count is 311,000. Creatinine is 1.87. His ferritin was 100, iron saturation of 23.5%. Previous labs over the last 2 years or so have showed persistently elevated white blood cell count and moderate to mild anemia. His differential has been primarily neutrophils with absolute neutrophil counts from 9700-15,000. He is doing ok. He is in a wheelchair today. He has had a recent fall and hit his back. His neuropathy is very severe. He has very little sensation in his fingertips. Many wounds on fingertips mostly on the L hand, but also his right hand. he thinks from opening hot popcorn, he eats 3 bags per day. 06/06/22 he is doing ok again. no change in his neuropathy. Many bruises and small cuts. hs BCR/ABL was negative. Recent hospitalization at [facility] for COVID PNA. He had also a pneumothorax per the patient we dont have records yet. he is breathing better now. He is not on oxygen currently. 12/04/22 overall doing well. He had two hospitalizations in October for fluid overload. He continues to have wright on his hands from hot popcorn and neuropathy. - Physical Exam ECOG PS: 1-2. General : patient is alert and oriented to person place and time, no acute distress. Neck: no JVD or thyromegaly. Lymph: no cervical, supraclavicular, axillary adenopathy. Heart: regular rate and rhythm no murmurs rubs or gallops. Abdomen: soft nontender nondistended, no hepatosplenomegaly. Lungs: cta bl, no wheezes, rales, rhonchi Extremities: no clubbing cyanosis. multiple wounds on fingertips L hand, one on the tip of his 3rd digit R hand. - Time with Patient Coordination of Care & Counseling Time: Greater than 50% of time spent with patient was for coordination of care (as documented) and [id number] counseling of patient and/or family. [facility] - Medical History Medical History: Medical History (Last Updated 04/10/22 @ 15:01 by Gisselle Brown) Amputated toe of left foot Amputation of toe left fifth toe Appendicitis Cardiac defibrillator in place Congestive heart failure COPD (chronic obstructive pulmonary disease) Diabetes mellitus HTN (hypertension) Hypercholesteremia Numbness and tingling in both hands Numbness and tingling of both feet On home O2 3L - Surgical History Surgical History: Surgical History (Last Updated 04/10/22 @ 15:01 by Gisselle Brown) H/O cardiac catheterization History of appendectomy History of cataract extraction bilateral - Family History Family History: Family History (Last Reviewed 04/10/22 @ 14:50 by Gisselle Brown) Other CAD (coronary artery disease) Diabetes - Social History Smoking Status: Former smoker Tobacco Type: cigarettes Substance Use Type: Alcohol Social History Comments: lives in a trailor - with Promise (friend) Additional Data - Additional Objective Data Height/Weight: Height 5 ft 9 in Weight 100.8 kg Vital Signs: 12/04/22 13:06 Pulse Rate [Left Brachial] 86 Respiratory Rate 20 Blood Pressure [Left Arm] 129/84 02 Sat by Pulse Oximetry 96 Oxygen Delivery Method Room Air - Lab Results Diagram of Most Recent CBC and CMP 12/02/22 09:39 12/02/22 09:39 Labs - Last 7 Days 12/02/22 09:39: PHA Creatinine Clear 53.88, Sodium 140, Potassium 4.3, Chloride 101, Carbon Dioxide 30.1 H, Anion Gap 13.2, BUN 22, Creatinine 1.58 H, Est GFR ( Amer) 53, Est GFR (Non-Af Amer) 44, Glucose 150 H, Calcium 9.5, Iron 96, TIBC 336, Iron Saturation 28.6, Transferrin 240, Ferritin 85.7, Total Bilirubin 1.5 H, AST 32, ALT 19, Alkaline Phosphatase 101 H, Total Protein 7.6, Albumin 3.9, Globulin 3.7, Albumin/Globulin Ratio 1.1, Vitamin B12 1521 H, Folate > 22.3 12/02/22 09:39: Corrected WBC 11.8 H, Uncorrected WBC Count 11.8 H, RBC 5.41, Hgb 15.3, Hct 47.4, MCV 87.5, MCH 28.3, MCHC 32.3 L, RDW 19.6 H, Plt Count 214, MPV 8.5, Neut % (Auto) 67.1, Lymph % (Auto) 20.5, [place] % (Auto) 8.2, Eos % (Auto) 3.5, Baso % (Auto) 0.7, Nucleat RBC Rel Count 0.1, Neut # (Auto) 7.9 H, Lymph # (Auto) 2.4, [place] # (Auto) 1.0 H, Eos # (Auto) 0.4, Baso # (Auto) 0.1 - Home Medications and Allergies Allergies/Adverse Reactions: Allergies GABRIELA Inhibitors Adverse Reaction (Verified 12/04/22 13:05) Cough Home Medications: Home Medications albuterol sulfate 2.5 mg/3 mL (0.083 %) solution for nebulization 2.5 mg inhalation Q4H PRN breathing 04/10/22 [History Confirmed 12/04/22] albuterol sulfate 90 mcg/actuation aerosol inhaler 2 puff inhalation Q4H PRN breathing 04/10/22 [History Confirmed 12/04/22] amitriptyline 25 mg tablet 25 mg PO QHS 04/10/22 [History Confirmed 12/04/22] aspirin 81 mg tablet,delayed release 81 mg PO DAILY 04/10/22 [History Confirmed 12/04/22] atorvastatin 80 mg tablet 80 mg PO DAILY 04/10/22 [History Confirmed 12/04/22] budesonide-formoterol HFA 160 mcg-4.5 mcg/actuation aerosol inhaler (Symbicort) 2 puff inhalation BID 04/10/22 [History Confirmed 12/04/22] bumetanide 1 mg tablet 1 mg PO BID 04/10/22 [History Confirmed 12/04/22] carvedilol 25 mg tablet 25 mg PO BID 04/10/22 [History Confirmed 12/04/22] cholecalciferol (vitamin D3) 50 mcg (2,000 unit) tablet (Vitamin D3) 50 mcg PO DAILY 04/10/22 [History Confirmed 12/04/22] digoxin 125 mcg (0.125 mg) tablet 125 mcg PO DAILY 04/10/22 [History Confirmed 12/04/22] dulaglutide 4.5 mg/0.5 mL subcutaneous pen injector ([facility]) See Rx Instructions .Route .COMPLEX 04/10/22 [History Confirmed 12/04/22] gabapentin 400 mg capsule 400 mg PO BID 04/10/22 [History Confirmed 12/04/22] hydralazine 50 mg tablet 50 mg PO TID 04/10/22 [History Confirmed 12/04/22] hydrocodone 5 mg-acetaminophen 325 mg tablet 1 tab PO TID PRN Pain 04/10/22 [History Confirmed 12/04/22] insulin glargine 100 unit/mL (3 mL) subcutaneous pen (Nancyaglryan LeosPen U-100 Insulin) 63 unit subcut BID 04/10/22 [History Confirmed 12/04/22] insulin lispro 200 unit/mL (3 mL) subcutaneous pen (Humalog KwikPen U-200 Insulin) See Rx Instructions .Route .COMPLEX 04/10/22 [History Confirmed 12/04/22] isosorbide dinitrate 20 mg tablet 20 mg PO BID 04/10/22 [History Confirmed 12/04/22] nitroglycerin 0.4 mg sublingual tablet (Nitrostat) 0.4 mg sublingual DIRECTEDPRN Chest Pain 04/10/22 [History Confirmed 12/04/22] potassium chloride 10 mEq tablet,extended release (Klor-Con) 10 meq PO DAILY 04/10/22 [History Confirmed 12/04/22] spironolactone 25 mg tablet 25 mg PO DAILY 04/10/22 [History Confirmed 12/04/22] warfarin 5 mg tablet 5 mg PO DIRECTED 04/10/22 [History Confirmed 12/04/22] cyanocobalamin (vitamin B-12) 1,000 mcg tablet (Vitamin B-12) 1,000 mcg PO DAILY#30 tabs 06/06/22 [Rx Confirmed 12/04/22] ferrous sulfate 325 mg (65 mg iron) tablet 325 mg PO DAILY #30 tabs 06/06/22 [Rx Confirmed 12/04/22] Dictated By: Ethan Cummings II, DO DD/ 1342 Signed By: <Electronically signed by Ethan Cummings II, DO> 12/04/22 1347 [facility] Work Phone: Advance Directives Advance Directive Response Recorded Date/ Time Advance Directives No July 2:42pm Advance Directive Response Recorded Date/ Time Advance Directives No July 1:42pm Chief Complaint and Reason for Visit Chief Complaint Right great toe woun d Reason for Visit Cellulitis of left t oe Controlled type 2 diabetes mellitus with diabetic polyneuropathy [id number] Chief Complaint DM Obstructive sleep apnea Chief Complaint DM Leukocytosis Reason for Visit Leukocytosis Chief Complaint Leukocytosis DM sent by dyalisis Reason for Visit Leukocytosis SHIRA (acute kidney injury) Cardiomyopathy Elevated serum creatinine Elevated troponin Hyperglycemia Hypokalemia Hyponatremia Metabolic alkalosis with respiratory acidosis CKD (chronic kidney disease) stage 3, GFR 30-59 ml/min Obstructive sleep apnea Paroxysmal A-fib Chief Complaint Leukocytosis DM sent by neoSaej E87.6 I48.0 Reason for Visit Leukocytosis SHIRA (acute kidney injury) Cardiomyopathy Elevated serum creatinine Elevated troponin Hyperglycemia Hypokalemia Hyponatremia Metabolic alkalosis with respiratory acidosis CKD (chronic kidney disease) stage 3, GFR 30-59 ml/min Obstructive sleep apnea Paroxysmal A-fib Assessments Diagnosis Onset Date Resolution Status Cellulitis of left toe acute Controlled type 2 diabetes m ellitus with diabetic polyneuropathy acute [id number] acute Family History Relationship Condition Age at Onset Recorded Date/T melanie Not Specified Diabetes mellitus Unknown Coronary artery disease Unknown Summary Purpose Reason for Referral Reason *FU 10/17 Patient presented to with wright to left hand, pointer finger, patient is diabetic. Would like him to be seen by wound care for follow up. Thank you! Diagnosis 1 Burn of single finge r of left hand except thumb, unspecified burn degree, initial encounter (T23.022A) Referral Organization [facility] Referring Provider First Name Gisselle Referring Provider Last Name Noble Referring Provider Specialty Nurse Pract sara [facility] Address [address] [facility],[place],[address] Referred Provider Specialty Wound Care Referral Priority Routine General Notes Lennie Mcghee 022 12:46:37 PM >Received today and waiting for office notes to be locked before sending referral Lennie Mcghee 10/03/2022 03:00:03 PM >Referral was fax Clinical Notes Office [phone] Reason * FU 02/13 lumbar arthritis/pain - wants [place] or nadeen Diagnosis 1 Lumbar and sacral ar thritis (M48.9) Referral Organization [facility] Referring Provider First Name Vinnie Referring Provider Last Name Terry Referring Provider Specialty Family Prac yamil Referred Organization [facility] Referred Address [address], [place],[address] Referred Provider Specialty Pain Medicin e Referral Priority Routine General Notes Doris Modi 12:58:37 PM > referral received and faxed Additional Source Comments (unrecognized sect ion and content) No Status Records FoundNo Status Records FoundNo Status Records FoundNo Status Records FoundNo Status Records FoundNo Status Records Found INFORMATION SOURCE (unrecogn ized section and content) DATE CREATED AUTHOR 11/17/2020 [facility] DATE CREATED AUTHOR AUTHOR'S ORGANIZ ATION 03/05/2022 [facility] DATE CREATED AUTHOR AUTHOR'S ORGANIZ ATION 04/27/2023 [facility] pital DATE CREATED AUTHOR AUTHOR'S ORGANIZ ATION 09/03/2023 [facility] DATE CREATED AUTHOR AUTHOR'S ORGANIZ ATION 09/22/2023 [facility] DATE CREATED AUTHOR AUTHOR'S ORGANIZ ATION 10/10/2023 [facility] REASON FOR VISIT (unrecogniz ed section and content) 4 month Follow upportable co ncentratorDM, Needs to reapply for PAP, Type 2 IDDM, [facility] [address] FOLLOW UP, Patient will mail PAP back when he is done 10-05-21DS Trulicity RefillAPPT CANCELLEDDS Voicemail/ Diabetic ShoesXRAY RESULTSappt question-DS Patient Assistance Renewal/APPROVEDDM 6 week f/u, Type 2 [address] [facility], [facility] Visit CodesMED REFILLDS please call/ Diabetic shoes orderDS Voicemail/LUCAS SENSORSDM shoesDS JardianceNo InformationRecords requestDM follow up, patient's heart doctor Dr Greenfield told patient to ask Tyesha s about a pill that helps him urinate excess sugar[ thinks it is jardiance}, Type 2 IDDM, LUCAS 2pts hand/fingersinfection in fingersrefillinfectionBACK PAINLEFT FOOT PAINNo InformationMED REFILLNo InformationUC CONCERNSMED REFILLMED REFILLDIZZY SPELLS, 4 DAYS OF SEVERE DIZZY SPELLS. HE HAS FALLEN SEVERAL TIMES AT HOME TOO. HE FELL COMING IN HERE TODAY TOO. OTC DRAMAMINE ONLY HELPED A LITTLE BIT., CUT TOE OPEN ON A RUG LAST NIGHT, RIGHT GREAT TOEMED REFILLDS Jardiance samplesMED REFILL.DS Sensor questionMED REFILLJardiance RX for PAP/ need proof of incomePt/BreathingrefillHospital F/U - pneumonia, SOB, Pt was at [facility], He said he went in on 06/12 and was dc 07/29, He said he is feeling betterDS DM appt CxFallrefillDS Sensor refillDM, DM, DM follow up, Type 2 IDDM, LUCAS 2, [facility] Visit CodesD/Ctrouble breathingrefillDS Returning clinic's callFINGER PAINDS please callsickCKD and HTNburns left handrefillrefillDS Needs JardianceWound Care Referral Updatemed refillHosp d/c Farxiga and JardianceD/C [facility] reviewrefillDM follow up, DM, DM, DM follow up, Type 2 IDDM, LUCAS 2, [facility] Visit Codes, In-patient [facility]-10/18-10/24/2022, [facility] Visit CodesconsultDeclined servicesStein Hospice ReferraldownloadStein Hospice ReferralNo [id number] requestDS PAP Basaglar/TrulicityDS VoicemailrefillHOSPITAL VISIT, Acute on chronic systolic CHFrefillupdatefall, bruise, lump on back near L shoulderbalance issuesrefillHOSPITAL FOLLOW UP[facility] [place]PITALfallNo Informationrefillbruising all over, difficulty walkingDS N/S DM 03/27/23No InformationrefillNo Informationmed refillCKD and HTNRIGHT LOWER LEG INJURY, FELL IN STONES THIS AMrefillLibre downloadTKM-Lucas sensorsmed refillNo InformationAssisted livingHOSPITAL FOLLOW UP COPD/PNEUMONIAHOSPITAL DISCHARGE.PAP DIABETES MEDS, Type 2 IDDM, LUCAS 2fallNo Informationmed refillrefillNo Informationcxr resultsedemaappointmentNeeds diuresedrefillPalliative CareNo InformationDSwalkerrefillWalker OrderDCS blood sugar high/Basaglar formsDM, PAP DIABETES MEDS, Type 2 IDDM, LUCAS 2refillDS new meterNO SHOW APPTLibre Downloaddownloadfollow w/ home health orders:DS N/S DM 3appt Care Teams (unrecognized sec tion and content) Team Status: Active Member Role Status Dates Vinnie Stewart , DO Primary Care Provider Active Ethan Cummings II, DO Attending Provider Active Simba Kaufman MD Referring Provider Active Team Status: Active Member Role Status Dates Vinnie Stewart , DO Primary Care Provider Active Nicolette Manzano APRN Attending Provider Active Team Status: Active Member Role Status Dates Vinnie Stewart , DO Primary Care Provider Active Team Status: Active Member Role Status Dates Vinnie Sorto Stewart , DO Primary Care Provider Active Alejandro Duncan , DO Emergency Provider Active Yakov To , DO Admit Provider, Attending Provider Active Team Status: Inactive Member Role Status Dates Vinnie Stewart , DO Primary Care Provider Active Alejandro Duncan , DO Emergency Provider Active Yakov To , DO Admit Provider, Attending Provider Active Team Status: Inactive Member Role Status Dates Vinnie Sorto Stewart , DO Primary Care Provider Active Yakov To , DO Attending Provider Active Goals (unrecognized section and content) Goals may be documented in a n alternate section FOR RECORDS PERTAINING TO PATIENTS WHO ARE OR HAVE BEEN ENROLLED IN A CHEMICAL DEPENDENCY/SUBSTANCEABUSE PROGRAM, SOME INFORMATION MAY BE OMITTED. This clinical summary was aggregated from multiple sources. Caution should be exercised in using it in the provision of clinical care. This summary normalizes information from multiple sources, and as a consequence, information in this document may materially change the coding, format and clinical context of patient data. In addition, data may be omitted in some cases. CLINICAL DECISIONS SHOULD BE BASED ON THE PRIMARY CLINICAL RECORDS. [facility] [employer] [facility]. provides no warranty or guarantee of the accuracy or completeness of information in this document.
[2023-11-09 15:30] LABS: Hematocrit 45.9 % (42.0-54.0); Hemoglobin 15.4 g/dL (14.0-18.0); Mean Corpuscular HGB Conc 33.6 g/dL (29.9-35.2); Mean Corpuscular Hemoglobin 28.4 pg (25.9-34.0); Mean Corpuscular Volume 84.7 fL (80.0-94.0); Mean Platelet Volume 9.6 fL (9.5-13.5); Platelet Count 332 10^3/uL (150-450); Red Blood Count 5.42 10^6/uL (4.70-6.10); White Blood Count 15.8 10^3/uL (4.0-11.0)
[2023-11-09 15:48] LABS: Creatinine Urine Random 26.72 mg/dL (20.00-300.00); Protein Creatinine Ratio Urine 0.22; Total Protein Urine Random <6.0 mg/dL (<=11.9)
[2023-11-09 15:52] LABS: Albumin Level 3.6 g/dL (3.4-5.0); BUN Creatinine Ratio 20.7; Calcium 9.8 mg/dL (8.5-10.1); Carbon Dioxide 32.5 mmol/L (21.0-32.0); Chloride 87 mmol/L (98-107); Estimated GFR (African America 41 (>=60); Estimated GFR (Non-African Ame 34 (>=60); Glucose 314 mg/dL (74-106); Magnesium 2.5 mg/dL (1.8-2.4); Phosphorus 4.8 mg/dL (2.6-4.7); Potassium 3.5 mmol/L (3.5-5.1); Sodium 130 mmol/L (136-145); Uric Acid 12.3 mg/dL (3.5-7.2)
[2023-11-09 16:08] LABS: Bilirubin Urine NEGATIVE (NEGATIVE); Blood Urine NEGATIVE (NEGATIVE); Clarity Urine CLEAR (CLEAR); Color Urine YELLOW (YELLOW); Glucose Urine UA >=1000 mg/dL (NEGATIVE); Ketones Urine NEGATIVE (NEGATIVE); Leukocyte Esterase Urine NEGATIVE (NEGATIVE); Nitrite Urine NEGATIVE (NEGATIVE); Protein Urine NEGATIVE (NEG/TRACE); Urobilinogen Urine 0.2 EU/dL (0.2-1.0); pH Urine 6.5 (5.0-9.0)
[2023-11-09 16:20] LABS: Bacteria Urine TRACE #/HPF (NONE SEEN); Cast Seen? NONE SEEN #/LPF (NONE SEEN); Crystals Seen? None Seen #/HPF (None Seen); Mucus Urine NONE SEEN (NONE SEEN); RBC Urine 0-2 #/HPF (0-2); Squamous Epithelial Cell Urine RARE #/LPF (NONE/RARE); WBC Urine NONE SEEN #/HPF (NONE SEEN)
[2023-11-11 12:07] LABS: PTH, Intact 66 pg/mL (15-65)
== END 2023-11-09 15:05 | disposition home or self-care (01) ==
LOC: LAB 15:04
PROVIDERS: PCP Family Medicine; Visit Provider Internal Medicine
DX: E11.22 Type 2 diabetes mellitus with diabetic chronic kidney disease (principal); N18.30 Chronic kidney disease, stage 3 unspecified; I12.9 Hypertensive chronic kidney disease with stage 1 through stage 4 chronic kidney disease, or unspecified chronic kidney disease; N25.81 Secondary hyperparathyroidism of renal origin; E87.6 Hypokalemia; D72.829 Elevated white blood cell count, unspecified
CPT/HCPCS: 36415; 80069; 81001; 82306; 82570; 83735; 83970; 84156; 84550; 85027

== ENCOUNTER 2023-11-19 00:52 | Outpatient (RCR) | payer MEDICARE, SELFPAY | END 2023-12-19 16:00 | disposition home or self-care (01) | LOC: MM 00:52 | PROVIDERS: PCP Family Medicine; Visit Provider Internal Medicine | DX: Z51.81 Encounter for therapeutic drug level monitoring (principal); Z79.01 Long term (current) use of anticoagulants; I48.91 Unspecified atrial fibrillation ==

== ENCOUNTER 2023-11-23 11:27 | Outpatient (OUT) | payer MEDICARE, SELFPAY | END 2023-11-23 11:28 | disposition home or self-care (01) | LOC: WC 11:27 | PROVIDERS: PCP Family Medicine; Visit Provider Podiatrist Foot & Ankle Surgery | DX: E11.621 Type 2 diabetes mellitus with foot ulcer (principal); L97.412 Non-pressure chronic ulcer of right heel and midfoot with fat layer exposed; L97.422 Non-pressure chronic ulcer of left heel and midfoot with fat layer exposed; S80.811A Abrasion, right lower leg, initial encounter; L97.512 Non-pressure chronic ulcer of other part of right foot with fat layer exposed; S80.812A Abrasion, left lower leg, initial encounter; L97.312 Non-pressure chronic ulcer of right ankle with fat layer exposed; E11.622 Type 2 diabetes mellitus with other skin ulcer | CPT/HCPCS: 11042; 11045; A6213 ==

== ENCOUNTER 2023-12-10 11:31 | Outpatient (OUT) | payer MEDICARE, SELFPAY | END 2023-12-10 11:32 | disposition home or self-care (01) | LOC: WC 11:31 | PROVIDERS: PCP Family Medicine; Visit Provider Physician Assistant | DX: E11.621 Type 2 diabetes mellitus with foot ulcer (principal); L97.412 Non-pressure chronic ulcer of right heel and midfoot with fat layer exposed; S80.811A Abrasion, right lower leg, initial encounter; L97.422 Non-pressure chronic ulcer of left heel and midfoot with fat layer exposed; E11.622 Type 2 diabetes mellitus with other skin ulcer; L97.312 Non-pressure chronic ulcer of right ankle with fat layer exposed | CPT/HCPCS: 11043; 11046 ==

== ENCOUNTER 2023-12-20 01:35 | Outpatient (RCR) | payer MEDICARE, SELFPAY | END 2024-01-17 17:12 | disposition home or self-care (01) | LOC: MM 01:35 | PROVIDERS: PCP Family Medicine; Visit Provider Internal Medicine | DX: Z51.81 Encounter for therapeutic drug level monitoring (principal); Z79.01 Long term (current) use of anticoagulants; I48.91 Unspecified atrial fibrillation | CPT/HCPCS: 85610; G0463 ==

== ENCOUNTER 2023-12-25 14:05 | Outpatient (OUT) | payer MEDICARE, SELFPAY | END 2023-12-25 14:06 | disposition home or self-care (01) | LOC: WC 14:05 | PROVIDERS: PCP Family Medicine; Visit Provider Podiatrist Foot & Ankle Surgery | DX: E11.621 Type 2 diabetes mellitus with foot ulcer (principal); L97.412 Non-pressure chronic ulcer of right heel and midfoot with fat layer exposed; L97.422 Non-pressure chronic ulcer of left heel and midfoot with fat layer exposed; E11.622 Type 2 diabetes mellitus with other skin ulcer; L97.312 Non-pressure chronic ulcer of right ankle with fat layer exposed | CPT/HCPCS: 11042; 11045 ==

== ENCOUNTER 2024-01-15 16:49 | Inpatient (IN) | payer MEDICARE, SELFPAY ==
[2024-01-15] VITALS (19 sets, daily range): BP systolic 106–150; BP diastolic 63–89; PULSE 70–108; RESP 14–22; TEMP 36.4–38.2; O2SAT 91–99; BMI 26.6; BMI 26.5
--- NOTE | 2024-01-15 16:56 | ECG_ITS ---
[facility] Test Date: 2024-01-15 Pat Name: ADWOA PORTER Department: Room: - Gender: Male [employer] Operator: : 1955 Requested By: Order Number: [id number] Reading MD: MIESHA LOCKE Measurements Intervals [place] Rate: 86 P: -[id number] IA: -[id number] QRS: 260 QRSD: 134 T: 90 QT: 416 QTc: 460 Interpretive Statements [id number] Electronic ventricular pacemaker 9120 atypical ECG Compared to ECG 11/01/2023 21:56:45 No significant changes Electronically Signed On 01-15-2024 22:58:31 EST by MIESHA LOCKE
--- NOTE | 2024-01-15 16:56 | ED_ITS ---
HPI - General Adult General Chief complaint: Wound/Laceration Stated complaint: Left Foot Infection Time Seen by Provider: 01/15/24 16:54 Source: patient and other Source information: EMS Mode of arrival: ambulance Limitations: no limitations History of Present Illness HPI narrative: Patient is a 68-year-old male who is presenting to the ER with a chief complaint Of feeling generalized weakness, ffatigue, not feeling good. Patient does have a fever. Patient has lost significant amount of weight since I last saw him in August 2023. Patient is currently undergoing wound clinic and sees Dr. Van. Patient was Supposed to go to wound clinic yesterday, patient did not go Because he did not feel well. Patient has long-standing history of end- stage kidney disease, hypokalemia, chronic venous ulcerations to his legs, patient is a chronic wound to his right heel, chronic wound to the lateral aspect of his left foot. Patient is missing 2 of his toes to the left foot. Patient has chronically poor health and chronic multiple comorbidities. Paatient has no nausea or vomiting. Patient says that he has sores in his sacrum as well. Patient was a home with family, patient says he uses a walker and a wheelchair. Patient came in by EMS. Patient is tachycardic, hypoxic at 89-90 percent. Patient is febrile, patient is meeting sepsis measures. All systems are negative except as noted/marked. All systems reviewed and otherwise negative. Nurses note and vital signs reviewed and patient is Hypoxic at 89 percent, patient is placed on 2 L nasal cannula. General: The patient appears Somnolent and needs to be redirected several times to answer questions appropriately, patient has a GCS of 14 for eye opening. Patient is resting comfortably on cart. Patient is not toxic, Slightly lethargic, not listless. Skin: Warm, dry, no pallor noted. There is no rash noted. No petechiae, purpura. Patient has multiple chronic venous ulcerations to the anterior aspect of his bilateral lower thighs above the knee and his anterior shins and the top of his feet. Patient has dried chronic wounds to his right heel and to his left lateral foot, distal aspect, lateral to the 4th and 5th metatarsal heads. Patient is missing 2 toes to his left foot. Patient was rolled over, he has redness to his sacrum but no break in the skin. Patient wearing adult diaper. Head: Normocephalic, atraumatic Eye: Normal conjunctiva, no drainage, EOMI. PERRL Ears, Nose, Mouth, and Throat: oral mucosa is moist. Nares patent. Mouth without vesicles. Cardiovascular: Regular Rate and Rhythm, no murmur, gallop, rub Respiratory: Patient is in no distress, no accessory muscle use, lungs are clear to auscultation, no wheezing, rales or rhonchi Back: non-tender, no CVA tenderness bilaterally to percussion. No CT LS midline pain GI: no tenderness to palpation, no masses appreciated. No rebound, guarding, or rigidity noted. No distention Musculoskeletal: Patient has full range of motion of all of the extremities, no motor, sensory, or focal neurological deficits, See skin exam. Neurological: A&O x4, normal speech Psychiatric: Cooperative, Somnnolent, agitated when you call his name loudly several times answer questions. Related Data Home Medications Medication Instructions Recorded Confirmed aspirin 81 mg tablet,delayed 81 mg PO DAILY 05/24/23 01/15/24 release (Adult Low Dose Aspirin) atorvastatin 80 mg tablet 80 mg PO DAILY 05/24/23 01/15/24 carvedilol 25 mg tablet 25 mg PO Q12H 05/24/23 01/15/24 dapagliflozin propanediol 10 mg 10 mg PO DAILY 05/24/23 10/22/23 tablet (Farxiga) digoxin 125 mcg (0.125 mg) tablet 0.125 mg PO QDAY 05/24/23 01/15/24 gabapentin 400 mg capsule 400 mg PO Q12H 05/24/23 01/15/24 hydrocodone 5 mg-acetaminophen 325 1 tab PO Q8H PRN pain, moderate 05/24/23 01/15/24 mg tablet isosorbide dinitrate 20 mg tablet 20 mg PO BIDWM 05/24/23 01/15/24 levothyroxine 50 mcg tablet 50 mcg PO .ACB 05/24/23 01/15/24 spironolactone 25 mg tablet 25 mg PO QAM 05/24/23 01/15/24 amitriptyline 25 mg tablet 25 mg PO .COMPLEX PRN sleep 06/02/23 01/15/24 cyanocobalamin (vitamin B-12) 1,000 mcg PO DAILY 06/02/23 01/15/24 1,000 mcg tablet,extended release hydralazine 50 mg tablet 50 mg PO Q8H 06/02/23 10/22/23 metolazone 2.5 mg tablet 2.5 mg PO DAILY 06/02/23 01/15/24 nitroglycerin 0.4 mg sublingual 0.4 mg sublingual Q5M PRN chest 06/02/23 01/15/24 tablet pain warfarin 2.5 mg tablet 2.5 mg PO DAILY 06/02/23 01/15/24 Previous Rx's Medication Instructions Recorded potassium chloride 10 mEq 20 meq (2 x 10 mEq) PO TID #90 tabs 06/21/23 tablet,extended release(part/cryst) (Klor-Con M) bumetanide 2 mg tablet 2 mg PO BID #60 tabs 08/22/23 Allergies Allergy/AdvReac Type Severity Reaction Status Date / Time GABRIELA Inhibitors AdvReac Mild COUGH Verified 01/15/24 16:55 [facility] Medical History (Updated 01/15/24 @ 20:41 by Rodrick Coyle MD) Altered mental status ?R41.82 - Altered mental status, unspecified (ICD-10) Hypokalemia ?E87.6 - Hypokalemia (ICD-10) Hyponatremia ?E87.1 - Hypo-osmolality and hyponatremia (ICD-10) Cellulitis and abscess of foot ?L03.119 - Cellulitis of unspecified part of limb (ICD-10) ?L02.619 - Cutaneous abscess of unspecified foot (ICD-10) Sepsis ?A41.9 - Sepsis, unspecified organism (ICD-10) Hypokalemia ?E87.6 - Hypokalemia (ICD-10) Multifocal pneumonia ?J18.9 - Pneumonia, unspecified organism (ICD-10) Altered mental status ?R41.82 - Altered mental status, unspecified (ICD-10) Left rib fracture ?S22.32XA - Fracture of one rib, left side, initial encounter for closed fracture (ICD-10) Generalized weakness ?R53.1 - Weakness (ICD-10) Hyperglycemia due to diabetes mellitus ?E11.65 - Type 2 diabetes mellitus with hyperglycemia (ICD-10) Chronic wound of extremity Dyspnea ?R06.00 - Dyspnea, unspecified (ICD-10) CKD (chronic kidney disease) stage 4, GFR 15-29 ml/min ?N18.4 - Chronic kidney disease, stage 4 (severe) (ICD-10) HLD (hyperlipidemia) ?E78.5 - Hyperlipidemia, unspecified (ICD-10) Fluid retention ?R60.9 - Edema, unspecified (ICD-10) Acute urinary retention ?R33.8 - Other retention of urine (ICD-10) Elevated INR ?R79.1 - Abnormal coagulation profile (ICD-10) Closed head injury ?S09.90XA - Unspecified injury of head, initial encounter (ICD-10) Cardiac defibrillator in place ?Z95.810 - Presence of automatic (implantable) cardiac defibrillator (ICD-10) Pacemaker ?Z95.0 - Presence of cardiac pacemaker (ICD-10) Pneumonia ?J18.9 - Pneumonia, unspecified organism (ICD-10) Ascites ?R18.8 - Other ascites (ICD-10) COPD (chronic obstructive pulmonary disease) ?J44.9 - Chronic obstructive pulmonary disease, unspecified (ICD-10) CAD (coronary artery disease) ?I25.10 - Atherosclerotic heart disease of [place] coronary artery without angina pectoris (ICD-10) Benign essential hypertension ?I10 - Essential (primary) hypertension (ICD-10) Anemia in chronic kidney disease ?N18.9 - Chronic kidney disease, unspecified (ICD-10) ?D63.1 - Anemia in chronic kidney disease (ICD-10) Paroxysmal atrial fibrillation ?I48.0 - Paroxysmal atrial fibrillation (ICD-10) Type 2 diabetes mellitus with hyperglycemia ?E11.65 - Type 2 diabetes mellitus with hyperglycemia (ICD-10) Hypothyroid ?E03.9 - Hypothyroidism, unspecified (ICD-10) Chronic kidney disease, stage 3a ?N18.31 - Chronic kidney disease, stage 3a (ICD-10) Chronic HFrEF (heart failure with reduced ejection fraction) ?I50.22 - Chronic systolic (congestive) heart failure (ICD-10) Surgical History History of appendectomy ?Z90.49 - Acquired absence of other specified parts of digestive tract (ICD- 10) Family History Mother Family history of CHF (congestive heart failure) Brother Family history of cancer Social History Within the past year, how often did you have a drink containing alcohol: never Within the past year, how often did you have six or more drinks on one occasion: never Score interpretation: A score less than 4 is consistent with normal alcohol consumption. 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 Known occupational exposures/hazards: No Highest level of school completed/degree received: high school graduate Do you want help with school or training: No Are you now , , , , never or living with a partner: living with partner In a typical week, how many times do you talk on the telephone with family, friends, or neighbors: 3 or more times per week How often do you get together with friends or relatives: 3 or more times per week How often do you attend rastafarian or muslim services: never Do you belong to any clubs or organizations such as rastafarian groups unions, [employer] or athletic groups, or school groups: no Total score: 2 Score interpretation: A score of greater than or equal to 2 indicates the lowest level of social isolation. Little interest or pleasure in doing things: not at all Feeling down, depressed, or hopeless: not at all Feel stressed/tense/nervous/anxious/difficulty sleeping: not at all Due to disability, difficulty making decisions: No Do you think of yourself as: straight/heterosexual Gender Identity: male Exam Constitutional Vital Signs, click to edit/add: Last Vital Signs Temp 97.6 F 01/15/24 19:23 Pulse 81 01/15/24 20:00 Resp 14 01/15/24 19:23 BP 106/69 01/15/24 19:23 Pulse Ox 92 L 01/15/24 20:22 O2 Del Method Nasal Cannula 01/15/24 20:22 O2 Flow Rate 2 01/15/24 20:22 Course Vital Signs Vital signs: Vital Signs Temperature 100.8 F H 01/15/24 16:51 Pulse Rate 84 01/15/24 16:51 Respiratory Rate 22 01/15/24 16:51 Blood Pressure 115/63 01/15/24 16:51 Pulse Oximetry 91 L 01/15/24 16:51 Oxygen Delivery Method Room Air 01/15/24 16:51 Temperature 97.6 F 01/15/24 19:23 Pulse Rate 81 01/15/24 20:00 Respiratory Rate 14 01/15/24 19:23 Blood Pressure 106/69 01/15/24 19:23 Pulse Oximetry 92 L 01/15/24 20:22 Oxygen Delivery Method Nasal Cannula 01/15/24 20:22 Oxygen Delivery Flow Rate 2 01/15/24 20:22 Medical Decision Making MDM Narrative Medical decision making narrative: Sepsis order set was initially ordered. Sepsis fluids were not excessively given secondary to paatient's history of systolic/diastolic dysfunction, congestive heart failure history. Patient's potassium was 2.5, he was given oral and IV potassium replacement. IV fluids were stopped so that 1 L of IV fluid can be given with potassium. X-rays of his bilateral feet, and left knee show no acute pathology. Patient is complaining of chronic left knee pain. Patient has mild redness circumferentially around a sore that is approximately 1.5 centimeter above his patella to the left knee. No signs of septic joint. Patient's BUN/creatinine are elevated higher than what they normally are at baseline. Patient has a white blood cell count of 27. Patient is started on vancomycin and Zosyn renal dosing. Patient will be admitted to [facility] telemetry for treatment of sepsis, consultation of wound care and [facility]. Critical care time 35 minutes exclusive from separate billable procedures that were performed. The following was considered in the determination of critical care but not limited to the level of medical decision making, intensive cardiac and/or respiratory monitoring, frequent vital sign monitoring, evaluation of laboratory studies, evaluation of radiographic studies, oxygen monitoring, and constant monitoring and speaking to family at bedside Lab Data Lab results reviewed: Yes I reviewed the patient's lab results Labs: Lab Results 01/15/24 01/15/24 Range/Units 17:15 17:18 WBC 27.1 H (4.0-11.0) 10^3/uL RBC 5.09 (4.70-6.10) 10^6/uL Hgb 13.8 L (14.0-18.0) g/dL Hct 41.4 L (42.0-54.0) % MCV 81.3 (80.0-94.0) fL MCH 27.1 (25.9-34.0) pg MCHC 33.3 (29.9-35.2) g/dL RDW 15.8 H (11.0-15.0) % Plt Count 409 (150-450) 10^3/uL MPV 9.3 L (9.5-13.5) fL Seg Neuts % (Manual) 83.0 Lymphocytes % (Manual) 9.0 L (20.5-60.0) % Monocytes % (Manual) 8.0 (1.7-12.0) % Eosinophils % (Manual) 0.0 L (0.9-7.0) % Basophils % (Manual) 0.0 L (0.2-2.0) % Neutrophils # (Manual) 22.49 H (1.4-6.5) 10^3/uL Lymphocytes # (Manual) 2.43 (1.20-3.80) 10^3/uL Monocytes # (Manual) 2.16 H (0.30-0.80) 10^3/uL Eosinophils # (Manual) 0.00 (0.00-0.70) 10^3/uL Basophils # (Manual) 0.00 (0.00-0.10) 10^3/uL Poikilocytosis 1+ Anisocytosis 1+ [place] Cells 1+ PT 14.1 H (9.0-11.6) sec INR 1.35 VBG pH 7.505 H (7.330-7.430) VBG pCO2 43.9 (40.0-52.0) mmHg Sodium 127 L (136-145) mmol/L Potassium 2.5 L* (3.5-5.1) mmol/L Chloride 85 L (98-107) mmol/L Carbon Dioxide 31.3 (21.0-32.0) mmol/L Anion Gap 13.2 BUN 56.0 H (7.0-18.0) mg/dL Creatinine 1.81 H (0.70-1.30) mg/dL Est GFR ( Amer) 45 L (>=60) Est GFR (Non-Af Amer) 37 L (>=60) BUN/Creatinine Ratio 30.9 Glucose 189 H (74-106) mg/dL Lactate 1.8 (0.4-2.0) mmol/L Calcium 9.0 (8.5-10.1) mg/dL Magnesium 2.4 (1.8-2.4) mg/dL Total Bilirubin 1.1 H (0.2-1.0) mg/dL AST 49 H (15-37) U/L ALT 33 (16-63) U/L Alkaline Phosphatase 236 H (46-116) U/L Troponin I High Sens 40.8 (4.0-76.1) pg/mL NT-Pro-B Natriuret Pep 33379.0 H* (<=900.0) pg/mL Total Protein 8.9 H (6.4-8.2) g/dL Albumin 2.2 L (3.4-5.0) g/dL Globulin 6.7 g/dL Albumin/Globulin Ratio 0.3 Procalcitonin 0.53 H (0.00-0.50) ng/mL Influenza Type A Ag Negative Influenza Type B Ag Negative SARS-CoV-2 Ag (CV2AG) Negative (NEGATIVE) ECG Data Attestation: I personally reviewed and interpreted this ECG as follows: (EKG interpretation. Patient has a ventricular pacemaker, artifact noted, no obvious signs of ectopy or acute changes. EKG reading QTc of 460) Discharge Plan Discharge Chief Complaint: Wound/Laceration Clinical Impression: SHIRA (acute kidney injury), Chronic wound of extremity, Fever of unknown origin, Leukocytosis, Sepsis, Dehydration, Hypokalemia Patient Disposition: Admitted As Inpatient Condition: Serious Discharge Date/Time: 01/15/24 20:09
[2024-01-15 17:29] LABS: PCO2 VBG 43.9 mmHg (40.0-52.0); pH VBG 7.505 (7.330-7.430)
[2024-01-15 17:33] LABS: Hematocrit 41.4 % (42.0-54.0); Hemoglobin 13.8 g/dL (14.0-18.0); Mean Corpuscular HGB Conc 33.3 g/dL (29.9-35.2); Mean Corpuscular Hemoglobin 27.1 pg (25.9-34.0); Mean Corpuscular Volume 81.3 fL (80.0-94.0); Mean Platelet Volume 9.3 fL (9.5-13.5); Platelet Count 409 10^3/uL (150-450); Red Blood Count 5.09 10^6/uL (4.70-6.10); Red Cell Distribution Width 15.8 % (11.0-15.0); White Blood Count 27.1 10^3/uL (4.0-11.0)
[2024-01-15 17:45] LABS: INR 1.35; Prothrombin Time 14.1 sec (9.0-11.6)
[2024-01-15 17:47] LABS: Lactate/Lactic Acid 1.8 mmol/L (0.4-2.0)
[2024-01-15 17:48] LABS: Influenza Virus A Antigen Negative; Influenza Virus B Antigen Negative; Internal Control Within Normal Limits; SARS-CoV-2 Ag NEGATIVE (NEGATIVE)
[2024-01-15 17:51] LABS: Magnesium 2.4 mg/dL (1.8-2.4); Troponin I High Sensitivity 40.8 pg/mL (4.0-76.1)
--- NOTE | 2024-01-15 17:55 | XR_ITS ---
The [address] [address] Patient Name: ADWOA PORTER MRN: [id number] date: 1955 Sex: M Assigned Patient Location: ER Current Patient Location: ER Accession/Order Number: [id number] Exam Date: 01/15/2024 17:38 Report Date: 01/15/2024 18:31 At the request of: NEGRO GALLARDO Procedure: XR knee LT 2V EXAM: XR knee LT 2V HISTORY: pain COMPARISON: None. TECHNIQUE: 2 views of left knee FINDINGS: There is no acute fracture or dislocation. No aggressive bone lesion. No cortical erosion. The soft tissues are unremarkable. XR/XR knee LT 2V IMPRESSION: No acute process. Electronically authenticated by: JULIA DOUGLAS Date: 01/15/2024 18:31
--- NOTE | 2024-01-15 17:55 | XR_ITS ---
The [address] [address] Patient Name: ADWOA PORTER MRN: [id number] date: 1955 Sex: M Assigned Patient Location: ER Current Patient Location: ER Accession/Order Number: [id number] Exam Date: 01/15/2024 17:38 Report Date: 01/15/2024 18:30 At the request of: NEGRO GALLARDO Procedure: XR foot FRANKLYN 2V EXAM: XR foot [place] 2V HISTORY: wounds COMPARISON: None. TECHNIQUE: 2 views of the feet FINDINGS: Right foot: There is no acute fracture or dislocation. No cortical erosion. There is vascular calcification. There is soft tissue is unremarkable. 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 No definite cortical erosion or focal osteopenia to suggest acute osteomyelitis. No acute fracture or dislocation. There is soft tissue swelling of the foot. XR/XR foot [place]ANK[place] 2V IMPRESSION: No acute process. No evidence of acute osteomyelitis. Foot MRI is recommended if clinically warranted. Electronically authenticated by: JULIA DOUGLAS Date: 01/15/2024 18:30
[2024-01-15 18:10] LABS: Lymphocytes Absolute Manual 2.43 10^3/uL (1.20-3.80); Monocytes Absolute Manual 2.16 10^3/uL (0.30-0.80); Segmented Neut Absolute Manual 22.49 10^3/uL (1.4-6.5)
[2024-01-15 18:11] LABS: Anisocytosis 1+; Burr Cells 1+; Poikilocytosis 1+
[2024-01-15 18:13] LABS: PROCALCITONIN 0.53 ng/mL (0.00-0.50)
[2024-01-15 18:17] LABS: Alanine Aminotransferase 33 U/L (16-63); Albumin Globulin Ratio 0.3; Albumin Level 2.2 g/dL (3.4-5.0); Alkaline Phosphatase 236 U/L (46-116); Anion Gap 13.2; Aspartate Amino Transferase 49 U/L (15-37); BUN Creatinine Ratio 30.9; Bilirubin Total 1.1 mg/dL (0.2-1.0); Carbon Dioxide 31.3 mmol/L (21.0-32.0); Chloride 85 mmol/L (98-107); Estimated GFR (African America 45 (>=60); Estimated GFR (Non-African Ame 37 (>=60); Globulin 6.7 g/dL; Glucose 189 mg/dL (74-106); Sodium 127 mmol/L (136-145); Total Protein 8.9 g/dL (6.4-8.2)
[2024-01-15 18:28] LABS: Potassium 2.5 mmol/L (3.5-5.1)
[2024-01-15] MEDS: 0.9 % SODIUM CHLORIDE 500 ML IV (18:36)
[2024-01-15] MEDS: POTASSIUM CHLORIDE IN 0.9%NACL 1,000 ML 250 MEQ IV ×2 (19:00→23:23)
[2024-01-15] MEDS: POTASSIUM BICARBONATE/CIT 25 MEQ TABLET EFF 50 MEQ PO (19:00)
--- OUTSIDE RECORDS SUMMARY | 2024-01-15 20:13 | XMS_ITS | CCD ---
Author Name Unknown Address [address] [place] [address] Organization [facility] Care Team Providers Care Transportation Department Supervisor Name Role Phone Vinnie Stewart Primary Care Provider Unavailab Valentin Gomez (WND) Attending Provider Unavaila Vinnie Lemon Primary Care Provider Nicolette Manzano Attending Provider Ivon Kat Attending Provider [phone] [place] Procedure Practitioner Unavailab VINNIE Nash Primary Care Unavailable LOWELL CRAFT Referring Unavailable ANNABELLE BOYD Surgeon Unavailable CECILE MAJOR Admitting Unavailable CECILE MAJOR Attending Unavailable [place] Procedure Practitioner Unavailab BALBIR Cardenas Surgeon Unavailable Vinnie Stewart Unavailable Vinnie Stewart Unavailable Brittnee Spain Unavailable Ruthie Guzman Unavailable Balbir Ba Unavailable Simba Kaufman Unavailable Gisselle Dickey Unavailable DO Vinnie Stewart Primary Care Provider CHARISSE Manzano Attending Provider [phone] DO Ethan Cummings II Attending Provider MD Simba Kaufman Referring Provider [phone] DO Vinnie Stewart Primary Care Provider DO Ethan Cummings II Attending Provider MD Simba Kaufman Referring Provider Mapus, [employer]ECTIVE [employer] Nicolette Wright Attending Provider [phone] DO Alejandro Duncan Emergency Provider [phone] DO Yakov To Admit Provider DO Yakov To Attending Provider SHIRLEY, BRYCE Admitting Unavailable SHIRLEY, BRYCE Attending Unavailable SHIRLEY, BRYCE Consulting Unavailable STEWART, VINNIE Primary Care Unavailable FAWWAD, BROWN H Attending Unavailable FAWWAD, BROWN H Admitting Unavailable STEWART, VINNIE Primary Care Unavailable FAWWAD, BROWN H Admitting Unavailable FAWWAD, BROWN H [facility] Unavailable SEPIDEH ., NIK Admitting Unavailable SEPIDEH ., NIK Attending Unavailable JACOBSON ., DR PROMISE Proctor Consulting Unavailable [facility] Primary Care Unavailable PAY ., DR TOM Consulting Unavailable SUSHIL STOUT Consulting Unavailable AHDOOTSARAHEH Consulting Unavailable CAILIN, MASSIMO Consulting Unavailable MICKY PRUITT Consulting Unavailable SISTER, MURTAZA Consulting Unavailable SEPIDEH ., NIK Consulting Unavailable EDMOND, RIDGECREST Primary Care Unavailable HOY ., DR SOTELO [...] Unavailable FAWWAD, BROWN H Admitting Unavailable STEWART, RIDGECREST Primary Care Unavailable CAILIN, MASSIMO Consulting Unavailable CAILIN, MASSIMO Admitting Unavailable CAILINRONNIEA Attending Unavailable [facility] Primary Care Unavailable YEARTY KODI Consulting Unavailable YEARTY KODI Admitting Unavailable YEARTYEVIKODI Attending Unavailable STEWART, RIDGECREST Primary Care Unavailable MISC, DR YEN Consulting Unavailable MISC, DR YEN Admitting Unavailable MISC, DR YEN Attending Un[facility] Care Unavailable JACSIMBA Consulting Unavailable JAC, SIMBA Admitting [facility] Care Unavailable JAC, SIMBA Attending Unavailable JAC, SIMBA Admitting Unavailable JAC, SIMBA Attending [facility] Primary Care Unavailable JAC, SIMBA Consulting Unavailable FAWWAD, BROWN H Attending Unavailable FAWWAD, BROWN H Admitting Unavailable [facility] Primary Care Unavailable FAWWAD, BROWN H Admitting Unavailable FAWWAD, BROWN H Attending [facility] Care Unavailable FAWWAD, BROWN H Attending Unavailable FAWWAD, BROWN H Admitting Unavailable [facility] Care Unavailable YEARTY, KODI Admitting Unavailable YEARTY, KODI Attending [facility] Primary Care Unavailable YEARTY, KODI Consulting Unavailable CAILIN, MASSIMO Admitting Unavailable RONNIE SIMEONA Attending Unavailable [facility] Primary Care Unavailable CAILIN, MASSIMO Consulting Unavailable CANDELARIA SEGAL Admitting Unavailable CANDELARIA SEGAL Attending Unavailable JORGE BUCKNER Consulting Unavailable [facility] Care Unavailable CANDELARIA SEGAL Consulting Unavailable FAWWAD, BROWN H Attending Unavailable [facility] Care Unavailable FAWWAD, BROWN H Admitting Unavailable DR IMTIAZ DUVAL Consulting Unavailable FAWWAD, BROWN H Consulting Unavailable SOFÍA GASTON Consulting Unavailable MIRYAM MENDEZ Consulting Unavailable JOSE STRONG Consulting Unavailable ALLIE BERMUDEZ Consulting Unavailable FAWWAD, BROWN H Admitting Unavailable FAWWAD, BROWN H [facility] FAWWAD, BROWN H Attending Unavailable FAWWAD, BROWN H Admitting [facility] Care Unavailable FAWWAD, BROWN H Admitting Unavailable FAWWAD, BROWN H Attending Unavailable [facility] Primary Care Unavailable JORGE ARROYO Admitting Unavailable JORGE ARROYO Attending [facility] Unavailable JORGE ARROYO Admitting Unavailable JORGE ARROYO Attending [facility] Primary Care Unavailable JORGE ARROYO Admitting Unavailable JORGE ARROYO Attending [facility] Primary Care Unavailable JORGE ARROYO Admitting Unavailable JORGE ARROYO Attending [facility] Care Unavailable JROGE ARROYO Admitting Unavailable JORGE ARROYO Attending Unavailable VINNIE STEWART Primary Care Unavailable ZIMARIMAR, DR BIANCA Sorto Consulting Unavailable PAY ., DR TOM Admitting Unavailable PAY ., DR TOM Attending Unavailable [facility] VINNIE Primary Care Unavailable PAY ., DR TOM Consulting Unavailable FAWWAD, BROWN H Admitting Unavailable FAWWAD, BROWN H Attending Unavailable STEWART, VINNIE Primary Care Unavailable WEST, DR BALBIR Thorpe Consulting Unavailable CODIEBROSY, DR BIANCA Sorto Consulting Unavailable NADERER, DR LOWELL Jones Consulting Unavailable EDSON PARKS Consulting Unavailable BRIANNA ., ANAMIKA Consulting Unavailable FAWWAD, BROWN H Consulting Unavailable HOY ., DR SOTELO Consulting Unavailable HOY ., DR SOTELO Admitting Unavailable HOY ., DR SOTELO Attending Unavailable [facility] Primary Care Unavailable ZIEBER, DR BIANCA Sorto Consulting Unavailable SONIDO VAUGHN Consulting Unavailable WILEY ., MAYE TERAN Consulting Unavailable SISTER, MURTAZA Consulting Unavailable STELLA, JULIA Consulting Unavailable BLANCA SANTOS Consulting Unavailable SUSHIL STOUT Admitting Unavailable SUSHIL STOUT Attending Unavailable SUSHIL STOUT Consulting Unavailable [facility] VINNIE Primary Care Unavailable FAWWAD, BROWN H Admitting Unavailable FAWWAD, BROWN H Attending Unavailable STEWART, VINNIE Primary Care Unavailable JORGE ARROYO Admitting Unavailable JORGE ARROYO Attending Unavailable [facility] Primary Care Unavailable Mapus, Tondra Unavailable PROVIDER, UNKNOWN Attending Unavailable PROVIDER, UNKNOWN Admitting Unavailable MASSIMO SIMEON Attending Unavailable SUSHIL STOUT Attending Unavailable DAHIANA BELCHER Attending Unavailable SUSHIL STOUT Attending Unavailable FATIMAH NARVAEZ Referring Unavailable BRYCE WATSON Attending Unavailable MASSIMO SIMEON Attending Unavailable SUSHIL STOUT Attending Unavailable CHAR MILLARD Attending Unavailable KODI MYERS Attending Unavailable FATIMAH NARVAEZ Referring Unavailable FATIMAH NARVAEZ Referring Unavailable MASSIMO SIMEON Attending Unavailable VINNIE STEWART Referring Unavailable VINNIE STEWART. Primary Care Unavailable DO Vinnie Stewart Primary Care Provider Mapus, [employer] Tondra K Attending Provider [phone] Vinnie Stewart Primary Care Unavailable Mapus, Tondra K Admitting Unavailable Mapus, Tondra K Attending Unavailable Yakov To Admitting Unavailable Yakov To Attending Unavailable Vinnie Stewart Primary Care Unavailable Vinnie Stewart Primary Care Unavailable Yakov To Admitting Unavailable Yakov To Attending Unavailable Unavailable Unavailable Unavailable Allergies Allergy Classification Reported Allergen(s) Allergy Type Date of Onset Reaction(s) Facility (11 sources) Angiotensin Converting Enzyme (Gabriela) Inhibitors; 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: [GABRIELA Inhibitors] Propensity to adverse reactions 2 Cough [facility] Repository (20 sources) Angiotensin Converting Enzyme (Gabriela) Inhibitors Propensity to adverse reactions cough [facility] Other Medications Current Medications Medication Drug Class(es) Dates Sig (Normalized) Sig (Original) acetaminophen 325 mg / HYDROcodone bitartrate 5 mg oral tablet (20 sources) Opioid Agonist Start: 12-20-2023 take 1 tablet by mouth every eight hours HYDROcodone-Aceta minophen 5-325 MG 1 tablet as needed Orally every 8 hrs for 30 days Dec, Active Start: 11-21-2023 take 1 tablet by cedrick th every eight hours HYDROcodone-Acetaminophen 5-325 MG 1 tab let as needed Orally every 8 hrs Nov, Active Start: 10-19-2023 take 1 tablet by cedrick th every [...] TAB P O Three times daily April 09, 2022 11:00pm Start: 01-27-2022 take 1 tablet by cedrick [...] 8 hrs for 30 day(s) Sep, Active [id number] 200 actuat albuterol 0.09 mg/actuat metered dose inhaler (20 sources) beta2-Adrenergic Agonist Start: 04-10-2022 take 1 puff(s) by inhalation every four hours Albuterol Sulfate Active 2 PUFF INHALATION Q4H April 09, 2022 11:00pm Start: 07-31-2019 End: 02-09-2020 take 1 puff(s) [...] Inhaler Discontinued 1 PUFF INHALATION Q6H July 30, 2019 11:00pm February 09, 2020 11:49am Start: 02-24-2019 End: 07-31-2019 take 1 puff(s) [...] 11:00pm July 31, 2019 7:17am Start: 08-05-2012 take 2.5 mg by inhal ation every four hours Albuterol Sulfate Active 2.5 MG INHALATION Q4H April 09, 2022 11:00pm Start: 08-05-2012 take 2 puff(s) by in halation every four hours as needed Albuterol Sulfate HFA 108 (90 Base) MCG/ACT 2 puffs as needed Inhalation every 4 hrs PRN Active take 2 puff(s) by in halation every four hours as needed take 2 puff(s) by in halation every four hours as needed amitriptyline hydrochloride 25 mg oral tablet (20 sources) Tricyclic Antidepressant Start: 04-10-2022 take 25 mg by mouth once daily at bedtime Amitriptyline Active 25 MG PO Daily at bedtime April 09, 2022 11:00pm Start: 07-31-2019 End: 02-09-2020 take 25 mg by mouth at bedtime Amitriptyline Discontin ued 25 MG PO Bedtime July 30, 2019 11:00pm February 09, 2020 11:49am apixaban 5 mg oral tablet (7 sources) Factor Xa Inhibitor Start: 02-24-2019 take 5 mg by mouth twice daily Apixaban Active 5 MG Oral Twice daily February 24, 2019 6:40am Start: 02-24-2019 End: 04-10-2022 take 5 mg by mouth once daily Apixaban Discontinued 5 MG PO Daily February 23, 2019 11:00pm April 10, 2022 2:04pm Aspir-81 81 MG (20 sources) take 1 tablet by mouth once annette y take 1 tablet by mouth once annette y Aspir-81 81 MG 1 tablet Orally Once a day for 90 day(s) Not-Taking take 1 tablet by mouth once annette y Aspir-81 81 MG 1 tablet Orally Once a day for 90 day(s) Active aspirin 81 mg delayed release oral tablet (12 sources) Platelet Aggregation Inhibitor, Nonsteroidal Anti-inflammatory Drug Start: 02-24-2019 End: 04-10-2022 take 81 mg by mouth once daily Aspirin Active 81 MG PO Daily April 09, 2022 11:00pm atorvastatin 80 mg oral tablet (20 sources) HMG-CoA Reductase Inhibitor Start: 02-24-2019 End: 04-10-2022 take 80 mg by mouth once daily Atorvastatin Active 80 MG PO Daily April 09, 2022 11:00pm 120 actuat budesonide 0.16 mg/actuat / formoterol fumarate 0.0045 mg/actuat metered dose inhaler (20 sources) Corticosteroid, beta2-Adrenergic Agonist Start: 04-10-2022 take 1 puff(s) by inhalation twice daily Budesonide-Formo terol (Symbicort) 160-4.5 mcg/actuation Hfa Aerosol Inhaler Active 2 PUFF INHALATION Twice daily April 09, 2022 11:00pm Start: 07-31-2019 End: 02-09-2020 take 1 puff(s) by inhalation twice daily Budesonide-Formoterol (Symbicort) 160-4.5 mcg/actuation Hfa Aerosol Inhaler Discontinued 2 PUFF INHALATION Twice daily July 30, 2019 11:00pm February 09, 2020 11:49am Start: 02-24-2019 End: 07-31-2019 take 1 puff(s) by inhalation twice daily Budesonide-Formoterol Discontinued 2 PUFF INHALATION Twice daily February 23, 2019 11:00pm July 31, 2019 7:20am take 2 puff(s) by in halation twice daily Symbicort 160-4.5 MCG/ACT 2 puffs Inhalation Twice a day Active take 2 puff(s) by in halation twice daily bumetanide 1 mg oral tablet (20 sources) Loop Diuretic Start: 04-10-2022 take 2 mg by mouth twice daily Bumetanide Active 2 MG PO Twice daily April 09, 2022 11:00pm Start: 04-10-2022 take 1 mg by mouth twice daily Bumetanide Active 1 MG PO Twice daily April 09, 2022 11:00pm take 1 tablet by cedrick th every twelve hours Bumetanide 2 MG 1 tablet Orally TWICE A DAY Active carvedilol 25 mg oral tablet (20 sources) alpha-Adrenergic Devaughn, beta-Adrenergic Devaughn Start: 02-24-2019 End: 04-10-2022 take 25 mg by mouth twice daily Carvedilol Active 25 MG PO Twice daily April 09, 2022 11:00pm cephalexin 500 mg oral capsule (20 sources) Cephalosporin Antibacterial Start: 03-21-2023 take 1 capsule by mouth every eight hours Cephalexin 500 MG 1 capsule Orally 3 times a day for 7 days March, Active Start: 09-13-2022 take 1 tablet by cedrick every eight hours Cephalexin 500 MG 1 tablet Orally every 8 hours for 7 days Aug, Active Start: 03-02-2022 take 1 capsule by mo ut every eight hours Cephalexin 500 MG 1 capsule Orally tid for 7 days Feb, Active Start: 01-26-2022 take 1 capsule by mo uth every twelve hours Cephalexin 500 MG 1 capsule Orally bid for 10 day(s) Jan, Active Start: 01-10-2022 take 1 capsule by mo uth every eight hours Cephalexin 500 MG 1 capsule Orally tid for 7 days Dec, Active Start: 12-09-2021 take 1 capsule by mo [facility] every twelve hours Cephalexin 500 MG 1 capsule Orally bid for 10 day(s) Nov, Active Start: 07-31-2019 End: 12-04-2019 take 500 mg by mouth three times daily Cephalexin Discontinued 500 MG PO Three times daily July 30, 2019 11:00pm December 04, 2019 10:49am cholecalciferol 0.05 mg oral tablet (11 sources) Vitamin D Start: 04-10-2022 take 1 tablet by mouth once daily Cholecalciferol (Vitamin D3) (Vitamin D3) 50 mcg (2,000 unit) Tablet Active 50 MCG PO Daily April 09, 2022 11:00pm Start: 07-31-2019 End: 12-04-2019 take 1 capsule by mouth once daily Cholecalciferol (Vitamin D3) (Vitamin D3) 2,000 unit Capsule Discontinued 2000 UNIT PO Daily July 30, 2019 11:00pm December 04, 2019 12:04pm ciprofloxacin 500 mg oral tablet (7 sources) [...] 1 tablet by mouth once daily Dapagliflozin Propanediol (Farxiga) 10 mg tablet Active 10 MG PO Daily February 12, 2023 11:00pm Diabetic Shoes (20 sources) Start: 11-22-19 Diabetic Shoes as directed Nov, Active digoxin 0.125 mg oral tablet (20 sources) Cardiac Glycoside Start: 04-10-20 take 125 ug by mouth once daily Digoxin Active 125 MCG PO Daily April 09, 2022 11:00pm Start: 02-17-2020 End: 04-10-2022 Digoxin Discontinued 0.125 M G PO Q48H 0 February 17, 2020 11:15am April 10, 2022 2:04pm Start: 02-24-2019 End: 02-17-2020 take 0.125 mg by mouth once daily Digoxin Discontinued 0.125 MG PO Daily February 23, 2019 11:00pm February 17, 2020 11:19am doxycycline hyclate 100 mg oral tablet (20 sources) Tetracycline-class Drug Start: 09-27-2022 take 1 tablet by mouth every twelve hours Doxycycline Hyclate 100 MG 1 tablet Orally Twice a day for 10 days Dec, Active Start: 12-21-2019 End: 02-09-2020 take 100 mg by mouth twice daily Doxycycline Hyclate Discontinued 100 MG PO Twice daily December 21, 2019 12:00am February 09, 2020 11:49am Start: 12-04-2019 End: 12-04-2019 take 100 mg by mouth twice daily Doxycycline Hyclate Discontinued 100 MG PO Twice daily 07 09December 04, 2019 12:00am December 04, 2019 12:04pm Doxycycline Not- Taking Doxycycline Acti ve 0.5 ML dulaglutide 9 MG/ML Auto-Injector [Trulicity] (20 sources) GLP-1 Receptor Agonist Start: 10-11-2021 Trulicity 4.5 MG/0.5 ML as directed Subcutaneous patient assistance Sep, Active Start: 02-10-2020 End: 04-10-2022 Dulaglutide (Trulicity) 1.5 mg/0.5 mL Pen Injector Discontinued 1.5 MG SUBCUT every week February 09, 2020 11:00pm April 10, 2022 2:04pm Start: 07-31-2019 End: 12-04-2019 Dulaglutide (Trulicity) 0.75 mg/0.5 mL Pen Injector Discontinued 1.5 MG SUBCUT every week July 30, 2019 11:00pm December 04, 2019 12:04pm Start: 02-24-2019 End: 07-31-2019 Dulaglutide (Trulicity) 1.5 mg/0.5 mL Pen Injector Discontinued 1.5 MG SUBCUT every week February 23, 2019 11:00pm July 31, 2019 7:19am Trulicity 4.5 MG /0.5ML as directed Subcutaneous [...] Dulaglutide (Trulicity) 4.5 mg/0.5 mL Pen Injector (5 sources) Start: 04-10-2022 Dulaglutide (T rulicity) 4.5 [...] Ferrous Sulfate Active 325 MG PO Daily 30 June 06, 2022 11:07am Start: 06-06-2022 End: 06-06-2022 Ferrous Sulfate Discontinued MG TABLET June 05, 2022 11:00pm June 06, 2022 11:07am FreeStyle Lucas 14 Day Senso r - (20 sources) Start: 04-27-2022 FreeStyle Libr e 14 Day Sensor - as directed SQ change every 14 days for 28 days DX E11.65 Apr, Active FreeStyle Lucas 2 Boomer - (20 sources) FreeStyle Lucas 2 Boomer - USE READER TO TEST BLOOD SUGAR DIRECTED DAILY for 365 Active FreeStyle Lucas 2 Boomer - USE DIRECTED DAILY for 365 Active FreeStyle Lucas 2 Boomer Sys tm - (20 sources) FreeStyle Lucas 2 Boomer Systm - as directed SQ Daily Active FreeStyle Lucas 2 Boomer Systm - as directed SQ Daily for 365 days Active FreeStyle Lucas 2 Sensor - (20 sources) Start: 07-18-2022 FreeStyle Libr e 2 Sensor - check blood sugar SQ 4 x daily as directed for 84 days Dx E11.65 Jun, Active FreeStyle Lucas 2 Sensor Sys tm - (20 sources) FreeStyle Lucas 2 Sensor Systm - as directed SQ QID and prn Active FreeStyle Lucas 2 Sensor Systm - [...] Active 60 MG PO Twice daily February 12, 2023 11:00pm Start: 02-09-2020 End: 04-10-2022 take 2 tablets by mouth once daily Furosemide (Lasix) 40 mg Tablet Discontinued 80 MG PO Daily February 08, 2020 11:00pm April 10, 2022 2:04pm Start: 02-24-2019 End: 12-04-2019 take 2 tablets by mouth once daily Furosemide (Lasix) 40 mg Tablet Discontinued 80 MG PO Daily February 23, 2019 11:00pm December 04, 2019 12:05pm take 1 tablet by cedrick th every twelve hours Furosemide 80 MG 1 tablet Orally twice a day take with 20mg tablet Not-Taking/PRN take 1 tablet by cedrick th every twelve hours Furosemide 20 MG 1 tablet Orally twice a day take with 80mg Not-Taking/PRN take 1 tablet by cedrick th once daily in the morning Furosemide 80 MG 1 tablet Orally Once a day IN THE AM Active take 3 tablets by mo [facility] once in the evening Furosemide 20 MG 3 tablet Orally ONCE IN THE PM Active gabapentin 400 mg oral capsule (20 sources) Anti-epileptic Agent Start: 07-09-2020 take 400 mg by mouth twice daily Gabapentin Active 400 MG PO Twice daily April 09, 2022 11:00pm Start: 03-12-2020 End: 04-10-2022 take 600 mg by mouth once daily at bedtime Gabapentin Discontinued 600 MG PO Twice daily March 12, 2020 7:46am April 10, 2022 2:04pm 600mg po in AM 300MG PO AT LUNCH 600MG PO QHS Start: 02-24-2019 take 300 mg by mouth three times daily Gabapentin Active 300 MG Oral Three times daily February 24, 2019 6:40am Start: 02-24-2019 End: 03-12-2020 take 600 mg by mouth once daily at bedtime Gabapentin Discontinued 300 MG PO Twice daily 0 February 17, 2020 11:15am March 12, 2020 7:46am 600mg po in AM 300MG PO AT LUNCH 600MG PO QHS Handicap placards as directe d (20 sources) Start: 03-10-2021 Handicap placa rds as directed as directed as directed as directed Feb, Active Humalog KwikPen 200 200 Units/ML (20 sources) Humalog KwikPen 200 200 Units/ML As directed Subcutane 4 x per day EXPECT UP TO 80 u per day: FIXED DOSING Small meals is 12 units , medium meal is 16 u units and large meal is 18 units, extra large meal 20 u---HOPEFUL FOR ONGOING PAP Active Humalog KwikPen 200 200 Units/ML As [...] 50 MG PO Three times daily April 09, 2022 11:00pm 3 ml insulin degludec 200 unt/ml pen injector (20 sources) Insulin Analog Start: 09-18-2023 Tresiba FlexTo uch 200 UNIT/ML 36 u Subcutaneous daily for 90 days transition from basaglar Aug, Active inject 50 [IU] by ross bcutaneous injection once daily Tresiba FlexTouch 200 UNIT/ML 50 u Subcutaneous daily Titrate to 60 u once daily, has written instructions Active 3 ml insulin glargine 100 unt/ml pen injector (20 sources) Insulin Analog Start: 04-10-2022 Insulin Glargi ne (Basaglar Kwikpen U-100 Insulin) 100 unit/mL (3 mL) Insulin Pen Active 63 UNIT SUBCUT Twice daily April 09, 2022 11:00pm Start: 02-17-2020 End: 04-10-2022 Insulin Glargine (Basaglar Kwikpen U-100 Insulin) 100 unit/mL (3 mL) Insulin Pen Discontinued 35 UNIT SUBCUT Twice daily 0 February 17, 2020 11:18am April 10, 2022 2:04pm Start: 07-31-2019 inject 65 [IU] by ross bcutaneous injection once daily Insulin Glargine Active 65 UNIT Subcutaneous Daily July 31, 2019 8:15am Start: 07-31-2019 End: 02-17-2020 Insulin Glargine (Basaglar Kwikpen U-100 Insulin) 100 unit/mL (3 mL) Insulin Pen Discontinued 65 UNIT SUBCUT Twice daily July 30, 2019 11:00pm February 17, 2020 11:19am inject 54 [IU] by ross bcutaneous injection [...] ml insulin lispro 200 unt/ml pen injector (12 sources) Insulin Analog Start: 04-10-2022 Insulin Lispro (Humalog Kwikpen Insulin) 200 unit/mL (3 mL) Insulin Pen Active 0 .ROUTE .COMPLEX April 09, 2022 11:00pm small meals-34 units, medium meal--36 units, large meal--30 units TID Start: 07-31-2019 End: 04-10-2022 inject 30 [IU] by subcutaneous injection before breakfast, then inject 30 [IU] by subcutaneous injection before lunch, then inject 40 [IU] by subcutaneous injection before dinner Insulin Lispro (Humalog Kwikpen Insulin) 200 unit/mL (3 mL) Insulin Pen Discontinued 0 .ROUTE .COMPLEX July 30, 2019 11:00pm April 10, 2022 2:04pm 30 unit subcutaneously before breakfast, 30 units before lunch, 40 units before dinner Insulin, Aspart, Human (13 sources) Insulin Analog Start: 12-04-2019 Insulin Aspart [...] unit/mL Solution Discontinued 0 .ROUTE .COMPLEX February 23, 2019 11:00pm July 31, 2019 7:17am see label instructions isosorbide dinitrate 20 mg oral tablet (20 sources) Nitrate Vasodilator Start: 04-10-2022 take 20 mg by mouth twice daily Isosorbide Dinitrate Active 20 MG PO Twice daily April 09, 2022 11:00pm levothyroxine sodium 0.05 mg oral tablet (20 sources) l-Thyroxine take 1 tablet by mouth once daily in the morning Levothyroxine Sodium 50 MCG 1 tablet in the morning on an empty stomach Orally Once a day Active take 1 tablet by mouth once annette y in the morning metOLazone 2.5 mg oral tablet (20 sources) Thiazide-like Diuretic Start: 02-13-2023 take 2.5 mg by mouth every week Metolazone Active 2.5 MG PO every week February 12, 2023 11:00pm take 1 tablet by cedrick th every twenty-four hours metOLazone 2.5 MG 1 tablet Orally Once a day Active take 1 tablet by mouth every wee k metOLazone 5 MG 1 tablet Orally once a week Active nitroglycerin 0.4 mg sublingual tablet (20 sources) Nitrate Vasodilator Start: 04-10-2022 Nitroglyce rin (Nitrostat) 0.4 mg Tablet, Sublingual Active 0.4 MG SUBLINGUAL As Directed April 09, 2022 11:00pm Start: 02-24-2019 End: 02-09-2020 Nitroglycerin Discontinued 0 .4 MG SUBLINGUAL every 5 to 15 minutes February 23, 2019 11:00pm February 09, 2020 11:49am Nitrostat 0.4 MG 1 tablet under the tongue Sublingual X1 prn chest pain, may repeat X1 in 5min PRN Active Oxygen Concentrator (20 sources) Start: 12-19-2022 Oxygen Concent rator Nov, Active Start: 10-10-2021 Oxygen Concent rator Sep, Active potassium chloride 10 meq extended release oral tablet (20 sources) Start: 02-14-2023 Potassium Chlo ride (Klor-Con 10) 10 mEq Tablet Extended Release Active 20 MEQ PO Daily February 14, 2023 5:16pm Start: 04-10-2022 End: 02-14-2023 Potassium Chloride (Klor-Con 10) 10 mEq Tablet Extended Release Discontinued 10 MEQ PO Daily April 09, 2022 11:00pm February 14, 2023 5:20pm Start: 02-24-2019 take 20 mEq by mouth once annette y Potassium Chloride Active 20 MEQ Oral Daily February 24, 2019 6:40am Start: 02-24-2019 End: 03-12-2020 take 10 mEq by mouth once daily Potassium Chloride Dis continued 10 MEQ PO Daily February 23, 2019 11:00pm March 12, 2020 7:46am take 2 tablets by mo [facility] every twenty-four hours predniSONE 50 mg oral tablet (20 sources) Start: 12-22-2022 [facility] hours predniSONE 50 MG 1 tablet Orally Once a day for 5 day(s) Dec, Active Start: 05-30-2022 take 2 tablets by mo [facility] every twenty-four hours predniSONE 20 MG 2 tablets Orally Once a day for 5 day(s) May, Active spironolactone 25 mg oral tablet (20 sources) Aldosterone Antagonist Start: 02-24-2019 take 60 mg by mouth once daily Spironolactone Active 60 MG Oral Daily February 24, 2019 6:40am Start: 02-24-2019 End: 04-10-2022 take 25 mg by mouth once daily Spironolactone Active 25 MG PO Daily April 09, 2022 11:00pm vitamin b12 1 mg oral tablet (20 sources) Vitamin B12 Start: 06-06-2022 End: 06-06-2022 take 1 tablet by mouth once daily Cyanocobalamin (Vitamin B-12) (Vitamin B-12) 1,000 mcg Tablet Active 1000 MCG PO Daily June 06, 2022 11:07am take 1 tablet by cedrick th every twenty-four hours Vitamin B12 1000 MCG 1 tablet Orally Once a day for 90 days Active Vitamin B12 1000 MCG (20 sources) take [...] Once a day for 90 day(s) Active Walker - (20 sources) Start: 09-17-2023 Walker - as di rected Aug, Active warfarin sodium 5 mg oral tablet (20 sources) Vitamin K Antagonist Start: 04-10-2022 Warfarin Active 5 MG PO As Directed April 09, 2022 11:00pm Completed/Discontinued Medications Medication Drug Class(es) Dates Sig (Normalized) Sig (Original) acetaminophen 300 mg / codeine phosphate 30 mg oral tablet (12 sources) Opioid Agonist Start: 02-09-2020 End: 04-10-2022 take 2 tablets by mouth twice daily Acetaminophen-Codei ne (Tylenol-Codeine #3) 300-30 mg Tablet Discontinued 2 TAB PO Twice daily February 08, 2020 11:00pm April 10, 2022 2:04pm Start: 02-24-2019 End: 12-04-2019 take 1 tablet by mouth every four hours Acetaminophen-Codeine Discontinued 1 TAB PO Q4H February 23, 2019 11:00pm December 04, 2019 12:02pm albuterol 0.833 mg/ml / ipratropium bromide 0.167 mg/ml inhalation solution (13 sources) Anticholinergic, beta2-Adrenergic Agonist Start: 02-24-2019 End: 07-31-2019 Ipratropium-Albuterol Discontinued 3 ML INHALATION every 6 to 8 hours February 23, 2019 11:00pm July 31, 2019 7:19am Start: 02-24-2019 End: 02-09-2020 take 1 mL by inhalation every eight hours Ipratropium-Albuterol Discontinued 3 ML INHALATION Q8H February 23, 2019 11:00pm February 09, 2020 11:49am cefdinir 300 mg oral capsule (20 sources) Cephalosporin Antibacterial Start: 07-30-2023 take 1 capsule by mouth every twelve hours Cefdinir 300 MG 1 Capsule Orally twice a day for 7 days Jul, Not-Taking/PRN cefTRIAXone (20 sources) Cephalosporin Antibacterial Start: 10-02-2014 [...] Tablet Discontinued 10 MG PO Daily April 09, 2022 11:00pm December 04, 2022 1:05pm Start: 02-24-2019 End: 07-31-2019 take 1 tablet by mouth once daily Empagliflozin (Jardiance) 25 mg Tablet Discontinued 25 MG PO Daily February 23, 2019 11:00pm July 31, 2019 7:19am Hospital bed as directed (20 sources) Start: 06-18-2023 Hospital bed a s directed as directed May, Not-Taking/PRN Start: 06-18-2023 Start: 06-18-2023 Hospital bed a s directed as directed May, Active ipratropium bromide 0.2 mg/ml inhalation solution (20 sources) Anticholinergic Start: 04-10-2022 End: 12-04-2022 Ipratropium [place] Discontinued SOLUTION April 09, 2022 11:00pm December 04, 2022 1:05pm Ipratropium Brom jj 0.02 % USE 1 VIAL IN NEBULIZER 3 TIMES DAILY Active Ipratropium Brom jj 0.02 % USE 1 VIAL IN NEBULIZER 3 TIMES DAILY Not-Taking 24 hr isosorbide mononitrate 60 mg extended release oral tablet (7 sources) Nitrate Vasodilator Start: 02-24-2019 End: 04-10-2022 take 90 mg by mouth once daily Isosorbide Mononitrate Discontinued 90 MG PO Daily February 23, 2019 11:00pm April 10, 2022 2:04pm Ketorolac (20 sources) Nonsteroidal Anti-inflammatory Drug, Cyclooxygenase Inhibitor Start: 07-26-2016 Toradol per 15 mg Jul, 60 mg levoFLOXacin 500 mg oral tablet (6 sources) Quinolone Antimicrobial Start: 02-17-2020 End: 03-12-2020 take 1 tablet by mouth once daily Levofloxacin (Levaquin) 500 mg tablet Discontinued 500 MG PO Daily 08 28February 16, 2020 11:00pm March 12, 2020 7:45am losartan potassium 25 mg oral tablet (20 sources) Angiotensin 2 Receptor Devaughn Start: 04-10-2022 End: 12-04-2022 take 25 mg by mouth once daily Losartan Discontinued 25 MG PO Daily April 09, 2022 11:00pm December 04, 2022 1:04pm Start: 02-24-2019 End: 02-17-2020 take 50 mg by mouth once daily Losartan Discontinued 5 0 MG PO Daily February 23, 2019 11:00pm February 17, 2020 11:19am Magnesium (6 sources) Start: 02-24-2019 End: 07-31-2019 take 400 [...] Not-Taking metFORMIN hydrochloride 500 mg oral tablet (7 sources) Biguanide Start: 02-24-2019 End: 03-12-2020 take 1000 mg by mouth twice daily Metformin Discontinued 1000 MG PO Twice daily February 23, 2019 11:00pm March 12, 2020 7:45am pantoprazole 40 mg delayed release oral tablet (6 sources) Proton Pump Inhibitor Start: 02-24-2019 End: 12-04-2019 take 40 mg by mouth once daily Pantoprazole Discontinued 40 MG PO Daily February 23, 2019 11:00pm December 04, 2019 12:07pm sennosides, assisted 8.6 mg oral tablet (6 sources) Start: 02-24-2019 End: 12-04-2019 take 8.6 mg by mouth once daily Sennosides Discontinued 8.6 MG PO Daily February 23, 2019 11:00pm December 04, 2019 12:07pm silver sulfADIAZINE 10 mg/ml topical cream (20 sources) Sulfonamide Antibacterial Start: 09-28-2022 Silver sulfADIAZINE 1 % 1 application Externally Once a day for 10 days Sep, Not-Taking sulfamethoxazole 800 mg / trimethoprim 160 mg oral tablet (6 sources) Dihydrofolate Reductase Inhibitor Antibacterial, Sulfonamide Antimicrobial Start: 07-31-2019 End: 12-04-2019 take 1 tablet by mouth twice daily Sulfamethoxazole- Trimethoprim Discontinued 1 TAB PO Twice daily July 30, 2019 11:00pm December 04, 2019 10:50am traZODone hydrochloride 50 mg oral tablet (6 sources) Serotonin Reuptake Inhibitor Start: 02-24-2019 End: 12-04-2019 take 50 mg by mouth once daily Trazodone Discontinued 50 MG PO Daily February 23, 2019 11:00pm December 04, 2019 12:08pm Problems Active Problems Problem Classification Problem Date Documented Date Episodic/Chronic Abdominal pain (20 sources) Abdominal pain; 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: [Unspecified abdominal pain] Episodic Acquired foot deformities (1 source) Foot drop, left foot Episodic Acute and unspecified renal failure (13 sources) Acute renal failure syndrome; 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: [Acute kidney failure, unspecified] Onset: 2 04-10-2022 Episodic Administrative/social admission (9 sources) Dietary counseling and surveillance; 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: [Patient encounter status] Onset: 1 Resolved: 2 Episodic Alcohol-related disorders [...] Angina pectoris; 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: [Atherosclerotic heart disease of [place] coronary artery with unspecified angina pectoris] Onset: [...] 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: [Type 2 diabetes mellitus] 04-10-2022 Chronic Diabetes mellitus without complication (7 sources) Hyperglycemia; 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: [Hyperglycemia, unspecified] Onset: 3 02-13-2023 Episodic Diseases of white blood cells (20 sources) [...] (primary) hypertension] Onset: 1 Resolved: 2 Chronic Fluid and electrolyte disorders (20 sources) Respiratory acidosis and metabolic alkalosis; 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: [Mixed disorder of acid-base balance] Onset: 2 02-13-2023 Episodic Gangrene (5 sources) Gangrene of left foot; 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: [Gangrene, not elsewhere classified] 04-10-2022 Episodic Gangrene (1 source) Gangrene of left foot; 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: [Gangrene of left foot] Gastrointestinal hemorrhage (20 sources) Hematochezia; 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: [Melena] Episodic Genitourinary symptoms and ill-defined conditions (1 source) Frequency of micturition Episodi c Hemorrhoids (20 sources) Hemorrhoids; 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: [Unspecified hemorrhoids] [...] Onset: 1 Resolved: 2 Chronic Nutritional deficiencies (9 sources) Deficiency of other specified B group vitamins; 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: [Wernicke's disease] Onset: 1 Resolved: 2 Episodic Open wounds of extremities (5 sources) Unspecified open wound of right great toe without damage to nail, initial encounter; 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: [Unspecified open wound, right lower leg, initial encounter] Onset: 2 Resolved: 2 Episodic Other aftercare (20 sources) Long-term current use of insulin; 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: [meterman (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] Episodic Other aftercare (9 sources) [facility] (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; 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: [[facility] CURRENT USE OF INSULIN] Onset: 1 Resolved: 2 Episodic Other aftercare (1 source) [facility] (current) use of aspirin; 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: [COMMUNITY NUTRITION EDUCATOR CURRENT USE OF ASPIRIN] Onset: 3 Episodic Other aftercare (1 source) Other long-term (current) drug therapy; 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: [OTH [facility] CURRENT DRUG THERAPY] Onset: 3 Episodic Other aftercare (5 sources) Encounter for therapeutic drug level monitoring; 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: [ENC THERAPEUTC DRUG LEVL MONITORING] Onset: 3 Episodic Other aftercare (1 source) [facility] (current) use of anticoagulants; 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: [[facility] CURRNT USE ANTICOAGULANTS] Onset: 3 Episodic Other [...] Chronic Other diseases of kidney and ureters (4 sources) Secondary hyperparathyroidism of renal origin; 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: [SEC HYPERPARATHYROIDISM RENAL ORIGN] Onset: 3 Chronic Other diseases of veins and lymphatics (1 source) Venous insufficiency (chronic) (peripheral); 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: [VENOUS INSUFF CHRONIC PERIPHERAL] Onset: 3 Episodic Other endocrine disorders (20 sources) Hypoglycemia; 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: [Hypoglycemia, unspecified] Chronic Other endocrine disorders (3 sources) Hypoglycemia, unspecified Onset: 1 Resolved: 2 Chronic Other gastrointestinal disorders (7 sources) Occult blood in stools; 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: [Other fecal abnormalities] 04-10-2022 Episodic Other gastrointestinal disorders (20 sources) Diarrhea; 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: [Diarrhea, unspecified] Episodic Other hematologic conditions (4 sources) Raised cardiac enzyme or marker; 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: [Other specified abnormalities of plasma proteins] 02-13-2023 Episodic Other hematologic conditions (2 sources) Other specified abnormalities of plasma proteins; 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: [Other abnormal blood chemistry] 02-13-2023 Episodic Other hereditary and degenerative nervous system conditions (1 source) Other idiopathic peripheral autonomic neuropathy; 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: [OTH IDIO PERIPH AUTONOM NEUROPATHY] Onset: 2 Chronic Other infections; including parasitic (6 sources) Local infection of wound; 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: [Other [...] Onset: 2 Chronic Other lower respiratory disease (6 sources) Pulmonary edema; 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: [Chronic pulmonary edema] [...] on feet] Episodic Other nervous system disorders (2 sources) Unsteadiness on feet Episodic Other nutritional; endocrine; [...] nutritional; endocrine; and metabolic disorders (2 sources) Hyperuricemia without signs of inflammatory arthritis and tophaceous disease Episodic Other nutritional; endocrine; and metabolic disorders (1 source) Body mass index (BMI) 28.0-28.9, adult Episodic Other screening for suspected conditions (not mental disorders or infectious disease) (7 sources) Serum creatinine raised; 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: [Other specified abnormal findings of blood chemistry] Onset: 3 02-13-2023 Episodic Other skin disorders (3 sources) Ulcer; 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: [Full-term infant] Chronic Demetrice-; endo-; and myocarditis; cardiomyopathy (except [...] 2 Chronic Respiratory failure; insufficiency; arrest (adult) (6 sources) Acute respiratory failure; 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: [Acute respiratory failure with hypoxia] 04-10-2022 Episodic Screening and history of mental health and substance abuse codes (1 source) Personal history of nicotine dependence; 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: [PERSONAL HISTORY OF NICOTINE DEPEND] Onset: 3 Episodic Skin and subcutaneous tissue infections (20 sources) Cellulitis of toe; 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: [Cellulitis of [...] DISEASE STG 3 UNSP] Onset: 3 Unclassified (5 sources) Chronic atrial fibrillation, unspecified; 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: [CHRONIC ATRIAL FIBRILLATION UNSPEC] Onset: 3 Unclassified (3 sources) Permanent atrial fibrillation; 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: [PERMANENT ATRIAL FIBRILLATION] Onset: 2 Unclassified (1 source) CONTACT W/AND (SUSP) EXPOS COVID-19; 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: [CONTACT W/AND (SUSP) EXPOS COVID-19] Onset: 3 Unclassified (1 source) PERSONAL HISTORY OF COVID-19; 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: [PERSONAL HISTORY OF COVID-19] Onset: 2 Unclassified (1 source) Other ventricular tachycardia; 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: [Other ventricular tachycardia] Onset: 2 Urinary tract infections (1 source) Urinary tract infection, site not specified; 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: [Urinary tract infection, site not specified] Onset: 4 Episodic Viral infection (4 sources) COVID-19; 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: [COVID-19] Onset: 2 Past or Other Problems Problem Classification Problem Date Documented Da te Episodic/Chronic Biliary tract disease (1 source) Acute cholecystitis; 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: [ACUTE CHOLECYSTITIS] Onset: 05-08-2022 Episodic Conditions associated with dizziness or vertigo (1 source) Dizziness and giddiness Onset: 03-02-2022 Resolved: 03-02-2022 Episodic Diabetes mellitus with complications (1 source) Type 2 diabetes mellitus with diabetic polyneuropathy; 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: [Type 2 diabetes mellitus with autonomic dysfunction] Open wounds of extremities (1 source) Unspecified [...] ear Onset: 03-02-2022 Resolved: 03-02-2022 Episodic Other liver diseases (1 source) Abnormal levels of other serum enzymes; 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: [ABNORMAL LEVELS OTHER SERUM ENZYMES] Onset: 05-08-2022 Episodic Other lower respiratory disease (3 sources) Shortness of breath; 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: [SHORTNESS OF BREATH] Onset: 05-18-2022 Episodic Other lower respiratory disease (1 source) Dyspnea, unspecified; 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: [DYSPNEA UNSPECIFIED] Onset: 05-18-2022 Episodic Other lower respiratory disease (1 source) Hypoxemia; 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: [HYPOXEMIA] Onset: 05-18-2022 Episodic Pneumonia (except that caused by tuberculosis [...] ventricular tachycardia; 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: [Other ventricular tachycardia] Onset: 08-15-2023 Results Test Name Value Interpretation Reference Range Facility URINALYSISon 12-18-2023 Bilirubin Ql (U) Negative Normal NEG [facility] Comment on above: Performed By: #### U A #### [facility] ([id number]) [address] [place] [address] 31486 BLOOD/HGB Negative Normal NEG [facility] Comment on above: Performed By: #### U A #### [facility] ([id number]) [address] [place] [address] 62418 Color (U) YELLOW Normal YELLOW [facility] Comment on above: Performed By: #### U A #### [facility] ([id number]) [address] [place] [address] 50738 Glucose Ql (U) >1000 Abnormal NEG [facility] Comment on above: Performed By: #### U A #### [facility] ([id number]) [address] [place] [address] 51563 Ketones Ql (U) Negative Normal NEG [facility] Comment on above: Performed By: #### U A #### [facility] ([id number]) [address] [place] [address] 19850 Leukocyte esterase Test strip Ql (U) Negative Normal NEG [facility] Comment on above: Result Comment: HIGH CONCENTRATIONS OF GLUCOSE MAY DECREASE THE REACTIVITY OF THE DIPSTICK LEUKOCYTE TEST PAD. Performed By: #### U A #### [facility] ([id number]) [address] [place] [address] 21053 Nitrite Ql (U) Negative Normal NEG [facility] Comment on above: Performed By: #### U A #### [facility] ([id number]) [address] [place] [address] 15834 pH (U) 7.0 [pH] Normal 5.0-8.5 [facility] Comment on above: Performed By: #### U A #### [facility] ([id number]) [address] [place] [address] 01972 Protein Ql (U) Negative Normal NEG [facility] Comment on above: Performed By: #### U A #### [facility] ([id number]) [address] [place] [address] 54363 Specific gravity (U) [Rel density] 1.010 Normal 1.003-1.03 5 [facility] Comment on above: Performed By: #### U A #### [facility] ([id number]) [address] [place] [address] 36299 TURBIDITY CLEAR Normal CLEAR [facility] Comment on above: Performed By: #### U A #### [facility] ([id number]) [address] [place] [address] 70069 Urinalysis dipstick W Reflex Microscopic panel (U) URINE RECEIVED WITHOUT PRESERVATIVE-DELAYS IN TRANSPORT MAY AFFECT RESULTS.INTERPRET WITH CAUTION AND CLINICAL CORRELATION IS RECOMMENDED. Normal [facility] Comment on above: Performed By: #### U A #### [facility] ([id number]) [address] [place] [address] 69227 Urobilinogen Qn (U) 0.2 {Ashley'U}/dL Normal <1.1 [facility] Comment on above: Performed By: #### U A #### [facility] ([id number]) [address] [facility] [place] [address] URINE CULTUREon 12-18-2023 Bacteria identified Cx Nom (U) CULTURE RESULTS NO GROWTH AT <1000 CFU/mL Normal [facility] Comment on above: Performed By: #### 6 30-4 #### [facility] ([id number]) [facility], [address] [place] [address] Glucose - FINGER STICKon Glucose [Mass/Vol] 529 mg/dL [facility] Other Office Visiton 09-21-2023 Follow-up visit [id number] Adwoa Porter 1955 M [facility] Provider Department Center 09/21/2023 SUSHIL CAO RICHY [place] Family History Problem Relation Age of Onset Diabetes Mother Hypertension Mother Coronary artery disease Mother Family Status - Relation Status Age at Mother Level of Service:37979 [place] OFFICE/OUTPATIENT ESTABLISHED MOD MDM 30-39 MIN Reason for Visit and Comments: Follow-up [165854] Congestive Heart Failure [127] Normal [facility] Glucose - FINGER STICKon Glucose [Mass/Vol] 91 mg/dL [facility] Other Office Visiton 08-23-2023 Follow-up visit [id number] Adwoa Porter 1955 [facility] Provider Department Center 08/23/2023 MASSIMO DYE [facility] Problem Relation Age of Onset Diabetes Mother Hypertension Mother Coronary artery disease Mother Family Status - Relation Status Age at Mother Level of Service:16374 [place] OFFICE/OUTPATIENT ESTABLISHED HIGH MDM 40-54 MIN Reason for Visit and Comments: Wheezing [977159] Hospital Follow-up [832] Normal [facility] Office Visiton 08-15-2023 Follow-up visit [id number] Adwoa Porter 1955 M Date Provider Department Center 08/15/2023 BRYCE TRAORE RICHY [place] Family History Problem Relation Age of Onset Diabetes Mother Hypertension Mother Coronary artery disease Mother Family Status - Relation Status Age at Mother Level of Service:62729 [place] OFFICE/OUTPATIENT ESTABLISHED MOD MDM 30-39 MIN [facility] 36on 08-13-2023 36 Pt informed [facility] A1C HEMOGLOBINon 06-29-2023 HbA1c (Bld) [Mass fraction] 7.9 % [facility] [employer] Other Glucose - FINGER STICKon Glucose [Mass/Vol] 382 mg/dL [facility] [employer] Other HbA1c (Bld) [Mass fraction]o n 06-29-[address] [facility] [employer] Other 36on 06-20-2023 36 His potassium on 05/21 was 2.7. He needs to come to the hospital to receive IV potassium and further treatment as needed [facility] Telephoneon 06-20-2023 Telephone [id number] Adwoa Porter 1955 M Date Provider Department Center 06/20/2023 SUSHIL CAO RICHY [place] Family History Problem Relation Age of Onset Diabetes Mother Hypertension Mother Coronary artery disease Mother Family Status - Relation Status Age at Mother [facility] 36on 06-19-2023 36 TB lab called to re port a potassium level of 2.7 today. Melissa tried to call patient to remind him of his apt tomorrow but he did not answer and had no voicemail. [facility] 36on 06-18-2023 36 TB lab called to re port a critical BNP of 13,277. FYI. [facility] Telephoneon 06-18-2023 Telephone [id number] Adwoa Porter 1955 M Date Provider Department Center 06/18/2023 SUSHIL CAO RICHY [place] Family History Problem Relation Age of Onset Diabetes Mother Hypertension Mother Coronary artery disease Mother Family Status - Relation Status Age at Mother [facility] Office Visiton 06-05-2023 Follow-up visit [id number] Adwoa Porter Elicia 1955 M Date Provider Department Center 06/05/2023 SUSHIL CAO [facility] Family History Problem Relation Age of Onset Diabetes Mother Hypertension Mother Coronary artery disease Mother Family Status - Relation Status Age at Mother Level of Service:90992 [place] OFFICE/OUTPATIENT ESTABLISHED MOD MDM 30-39 MIN Reason for Visit and Comments: Follow-up [[id number]] Normal [facility] PTH INTACTon 04-12-2023 PTH, Intact 50 pg/mL Normal 15-65 [facility] Comment on above: Performed By: #### P THINT ####[facility] [address] [place] [address]Dr. Emelina Navarro HEMOGRAM AND PLATELon 2022 Hematocrit (Bld) [Volume fraction] 42.7 % Normal 42.0-54.0 [facility] Comment on above: Performed By: #### H H ####[facility] [address] [place] [address]Dr. Emelina Navarro Hemoglobin (Bld) [Mass/Vol] 14.3 g/dL Normal 14.0-18.0 [facility] Comment on above: Performed By: #### H H ####[facility] [address] [place] [address]Dr. Emelina Navarro MCH (RBC) [Entitic mass] 29.5 pg Normal 25.9-34.0 [facility] Comment on above: Performed By: #### H H ####[facility] [address] [place] [address]Dr. Emelina Navarro MCHC (RBC) [Mass/Vol] 33.5 g/dL Normal 29.9-35.2 [facility] Comment on above: Performed By: #### H H ####[facility] [address] [place] [address]Dr. Emelina Navarro MCV (RBC) [Entitic vol] 88.2 fL Normal 80.0-94.0 [facility] Comment on above: Performed By: #### H H ####[facility] [address] [place] [address]Dr. Emelina Navarro PLT 278 103/ul Normal 150-450 [facility] Comment on above: Performed By: #### H H ####[facility] [address] [place], [place] [address]Dr. Emelina Navarro RBC 4.84 106/ul Normal 4.70-6.10 [facility] Comment on above: Performed By: #### H H ####[facility] [address] [place], [place] [address]Dr. Emelina Navarro WBC 12.9 103/ul Critically high 4.0-11.0 [facility] Comment on above: Performed By: #### H H ####[facility] [address] [place], [place] [address]Dr. Emelina Navarro MAGNESIUMon 04-11-2023 Magnesium [Mass/Vol] 2.2 mg/dL Normal 1.8-2.4 [facility] Comment on above: Performed By: #### U JLOIE, RENAL, MG ####[facility] [address] [place], [place] [address]Dr. Emelina Navarro RENAL FUNCTION PANELon 04-11 Albumin [Mass/Vol] 3.6 g/dL Normal 3.4-5.0 [facility] Comment on above: Performed By: #### U JOLIE, RENAL, MG ####[facility] [address] [place], [place] [address]Dr. Emelina Navarro Calcium [Mass/Vol] 9.5 mg/dL Normal 8.5-10.1 [facility] Comment on above: Performed By: #### U JOLIE, RENAL, MG ####[facility] [address] [place] [address]Dr. Emelina Navarro Chloride [Moles/Vol] 95 mmol/L Critically low 98-107 [facility] Comment on above: Performed By: #### U JOLIE, RENAL, MG ####[facility] [address] [place] [address]Dr. Emelina Navarro CO2 [Moles/Vol] 36.4 mmol/L Critically high 21.0-32.0 [facility] Comment on above: Performed By: #### U JOLIE, RENAL, MG ####[facility] [address] [place] [address]Dr. Emelina Navarro Creatinine [Mass/Vol] 1.92 mg/dL Critically high 0.70-1.30 [facility] Comment on above: Performed By: #### U JOLIE, RENAL, MG ####[facility] [address] [place] [address]Dr. Emelina Navarro EGFR-AF SURINAMESE 42 mL/min/1.73m2 Critically low >=60 [facility] Comment on above: Performed By: #### U JOLIE, RENAL, MG ####[facility] Rbnvcokrtp[address] [place] [address]Dr. Emelina Navarro EGFR-NON AF SURINAMESE 35 mL/min/1.73m2 Critically low >=60 [facility] Comment on above: Performed By: #### U JOLIE, RENAL, MG ####[facility] Uaicrynezf[address] [place], [place] [address]Dr. Emelina Navarro Glucose [Mass/Vol] 96 mg/dL Normal 74-106 [facility] Comment on above: Performed By: #### U JOLIE, RENAL, MG ####[facility] Y[address]ftlcvgew[address] [place], [place] [address]Dr. Emelina Navarro Phosphate [Mass/Vol] 4.0 mg/dL Normal 2.6-4.7 [facility] Comment on above: Performed By: #### U JOLIE, RENAL, MG ####[facility] [address]raqwckm[address] [place], [place] [address]Dr. Emelina Navarro Potassium [Moles/Vol] 3.1 mmol/L Critically low 3.5-5.1 [facility] Comment on above: Performed By: #### U JOLIE, RENAL, MG ####[facility] Iorszxompn5[address] [place], [place] [address]Dr. Emelina Navarro Sodium [Moles/Vol] 137 mmol/L Normal 136-145 [facility] Comment on above: Performed By: #### U JOLIE, RENAL, MG ####[facility] Grlxzfenav[address] [place], [place] [address]Dr. Emelina Navarro Urea nitrogen [Mass/Vol] 31.0 mg/dL Critically high 7.0-18.0 [facility] Comment on above: Performed By: #### U JOLIE, RENAL, MG ####[facility] Jonppnzlns[address] [place] [address]Dr. Emelina Navarro UA RANDOM W/MICROSCOPICon BACTERIA NONE SEEN Normal NONE SEEN [facility] Comment on above: Performed By: #### U AMIC ####[facility] Tfoosrotaw[address] [place] [address]Dr. Emelina Navarro Bilirubin Ql (U) Negative Normal NEGATIVE [facility] Comment on above: Performed By: #### U AMIC ####[facility] Pykvstptrb9[address] [place] [address]Dr. Emelina Navarro CAST NONE SEEN Normal NONE SEEN [facility] Comment on above: Performed By: #### U AMIC ####[facility] Jqvhtrbbff5264 [place] [address]Dr. Emelina Navarro Clarity (U) CLEAR Normal CLEAR [facility] Comment on above: Performed By: #### U AMIC ####[facility] Vzpwehrwrs[address] [place] [address]Dr. Emelina Navarro Color (U) LT. YELLOW Normal YELLOW [facility] Comment on above: Performed By: #### U AMIC ####[facility] Fundhgiqft4601 [place] [address]Dr. Emelina Navarro Crystals LM Nom (Urine sed) NONE SEEN Normal NONE SEEN [facility] Comment on above: Performed By: #### U AMIC ####[facility] Odvtdsfeka[address] [place] [address]Dr. Emelina Navarro Epithelial cells LM Ql (Urine sed) FEW Abnormal NONE SEEN /RARE [facility] Comment on above: Performed By: #### U AMIC ####[facility] Ttqnerhoth[address] [place] [address]Dr. Emelina Navarro Glucose Ql (U) 500 mg/dl Abnormal NEGATIVE [facility] Comment on above: Performed By: #### U AMIC ####[facility] Zggzylhdfz1207 [place] [address]Dr. Emelina Navarro Hemoglobin Ql (U) Negative Normal NEGATIVE [facility] Comment on above: Performed By: #### U AMIC ####[facility] Cghdokvgce4188 [place] [address]Dr. Emelina Navarro Ketones Ql (U) Negative Normal NEGATIVE [facility] Comment on above: Performed By: #### U AMIC ####[facility] Pczbdhkqkz4123 [place] [address]Dr. Emelina Navarro LEUKOCYTES Negative Normal NEGATIVE [facility] Comment on above: Performed By: #### U AMIC ####[facility] Lglbrmbend[address] [place], [place] [address]Dr. Emelina Navarro MUCOUS NONE SEEN Normal NONE SEEN [facility] Comment on above: Performed By: #### U AMIC ####[facility] Ckfixevvrw5[address] [place], [place] [address]Dr. Emelina Navarro Nitrite Ql (U) Negative Normal NEGATIVE [facility] Comment on above: Performed By: #### U AMIC ####[facility] Mmoneoayya89[address] [place], [place] [address]Dr. Emelina Navarro pH (U) 6.5 [pH] Normal 5-9 [facility] Comment on above: Performed By: #### U AMIC ####[facility] Rvfxwblvxm0529[address] [place], [place] [address]Dr. Emelina Navarro RBC NONE SEEN Abnormal 0-2 [facility] Comment on above: Performed By: #### U AMIC ####[facility] Kdzjoqpjpc4[address] [place], [place] [address]Dr. Emelina Navarro SPEC GRAVITY 1.005 Normal 1.005-<=1. 025 [facility] Comment on above: Performed By: #### U AMIC ####[facility] Acdgwwxgmt4[address] [place] [address]Dr. Emelina Navarro UA PROTEIN Negative Normal NEGATIVE/ TRACE [facility] Comment on above: Performed By: #### U AMIC ####[facility] Zaceumjffp[address] [place], [place] [id number]. Emelina Navarro Urobilinogen Qn (U) 0.2 {Ashley'U}/dL Normal 0.2 - 1. 0 [facility] Comment on above: Performed By: #### U AMIC ####[facility] Dirkwezlfn[address] [place] [address]Dr. Emelina Navarro WBC NONE SEEN Normal NONE SEEN [facility] Comment on above: Performed By: #### U AMIC ####[facility] Oapunfvanx9307 [place] [address]Dr. Emelina Navarro URIC ACID SERUMon 04-11-2023 Urate [Mass/Vol] 12.2 mg/dL Critically high 3.5-7.2 [facility] Comment on above: Performed By: #### U JOLIE, RENAL, MG ####[facility] Bkkyxqsruw0440[address] [place], [place] [address]Dr. Emelina Navarro URINE T PROTEIN CREAT RATIOo n 04-11-2023 Protein (U) [Mass/Vol] 9.3 mg/dL Normal <=12.0 [facility] Comment on above: Performed By: #### U RTPCR ####[facility] Lyxsyecmyo4540[address] [place], [place] [address]Dr. Emelina Navarro UR PROT CREAT RAT 0.37 Normal [facility] Comment on above: Performed By: #### U RTPCR ####[facility] Oqszixtaaw[address] [place], [place] [address]Dr. Emelina Navarro URINE CREAT 25.00 mg/dL Normal 20.00-300. 00 [facility] Comment on above: Performed By: #### U RTPCR ####[facility] Olpikonueg2112[address] [place], [place] [address]Dr. Emelina Navarro VITAMIN D 25 OHon 04-11-2023 VIT D 25-OH 51.8 ng/mL Normal [facility] Comment on above: Performed By: #### V ITAD ####[facility] Tzygbjrwkr[address] [place], [place] [address]Dr. Emelina Navarro VIT D RANGES SEE BELOW Normal [facility] Comment on above: Result Comment: <20 ng/mL Vit D deficient 20 - <30 ng/mL Vit D insufficient 30 - 100 ng/mL Vit D sufficient >100 ng/mL Potential Toxicity Performed By: #### V ITAD ####[facility] Trmtjqnmfc26[address] [place], [place] [address]Dr. Emelina Navarro BNPon 03-28-2023 Natriuretic peptide B (Bld) [Mass/Vol] 7479.0 pg/mL Critically high <=900.0 [facility] Comment on above: Performed By: #### B STRAIGHT PIN MAKING MACHINE OPERATOR, CMP ####[facility] Cmdfikrgjp9248[address] [place], [place] [address]Dr. Emelina Navarro CBC AUTO DIFFon 03-28-2023 BASO # 0.1 103/ul Normal 0.0-0.1 [facility] Comment on above: Performed By: #### C BC ####[facility] Zefyuizzgc5108[address] [place], [place] [address]Dr. Emelina Navarro Basophils/100 WBC (Bld) 0.5 % Normal 0.2-2.0 [facility] Comment on above: Performed By: #### C BC ####[facility] Pusphatjvd6[address] [place], [place] [address]Dr. Emelina Navarro EO # 0.4 103/ul Normal 0.0-0.7 [facility] Comment on above: Performed By: #### C BC ####[facility] Buvcimjkfb7068[address] [place], [place] [address]Dr. Emelina Navarro Eosinophils/100 WBC (Bld) 3.7 % Normal 0.9-7.0 [facility] Comment on above: Performed By: #### C BC ####[facility] Twxzmfjtcm258[address] [place], [place] [address]Dr. Emelina Navarro Erythrocyte distribution width (RBC) [Ratio] 18.2 % Critically high 11.0-15.0 [facility] Comment on above: Performed By: #### C BC ####[facility] Jcdhvudjsw2534[address] [place], [place] [address]Dr. Emelina Navarro Hematocrit (Bld) [Volume fraction] 39.0 % Critically low 42.0-54.0 [facility] Comment on above: Performed By: #### C BC ####[facility] Peolamfrji[address] [place] [id number]. Emelina Navarro Hemoglobin (Bld) [Mass/Vol] 12.8 g/dL Critically low 14.0-18.0 [facility] Comment on above: Performed By: #### C BC ####[facility] Uvbaczkent8676 [place] [address]Dr. Emelina Navarro IG # 0.05 10e3/ul Critically high 0.00-0.03 [facility] Comment on above: Performed By: #### C BC ####[facility] Ttqfqztwuw4706 [place] [address]Dr. Emelina Ramon IG % 0.5 % Normal 0.0-0.5 [facility] Comment on above: Performed By: #### C BC ####[facility] Gpnraisdas45[address] [place], [place] [address]Dr. Emelina Navarro LYMPH # 1.4 103/ul Normal 1.2-3.8 [facility] Comment on above: Performed By: #### C BC ####[facility] Hptnzozkml2993 [place] [address]Dr. Emelina Ramon Lymphocytes/100 WBC (Bld) 13.1 % Critically low 20.5-60.0 [facility] Comment on above: Performed By: #### C BC ####[facility] Oyomsyvhbv[address] [place] [address]Dr. Emelina Navarro MANUAL DIFF REQ NO Normal [facility] Comment on above: Performed By: #### C BC ####[facility] Kurxnhkmwt0156 [place] [id number]. Emelina Ramon MCH (RBC) [Entitic mass] 29.8 pg Normal 25.9-34.0 [facility] Comment on above: Performed By: #### C BC ####[facility] Fohplgvzqz2622 [place] [id number]. Emelina Ramon MCHC (RBC) [Mass/Vol] 32.8 g/dL Normal 29.9-35.2 [facility] Comment on above: Performed By: #### C BC ####[facility] Qcunpbpkvl5511 [place] [id number]. Emelina Navarro MCV (RBC) [Entitic vol] 90.9 fL Normal 80.0-94.0 [facility] Comment on above: Performed By: #### C BC ####[facility] Kqpnvjoxca2738 [place] [id number]. Emelina Navarro MONO # 0.8 103/ul Normal 0.3-0.8 [facility] Comment on above: Performed By: #### C BC ####[facility] Xiteqvenbc3022 [place] [id number]. Awildanitza Navarro Monocytes/100 WBC (Bld) 7.5 % Normal 1.7-12.0 [facility] Comment on above: Performed By: #### C BC ####[facility] Rqydtqfilw[address] [place], [place] [address]Dr. Emelina Navarro NEUT # 8.1 103/ul Critically high 1.4-6.5 The [facility] Comment on above: Performed By: #### C BC ####[facility] Sqhlxysdvy[address] [place], [place] [address]Dr. Awildanitza Navarro Neutrophils/100 WBC (Bld) 74.7 % Normal 43.0-75.0 [facility] Comment on above: Performed By: #### C BC ####[facility] Yhejpdeeux[address] [place], [place] [address]Dr. Awildanitza Navarro Platelet mean volume (Bld) [Entitic vol] 10.0 fL Normal 9.5-13.5 [facility] Comment on above: Performed By: #### C BC ####[facility] Gjsgktnawq5102 [place] [id number]. Emelina Ramon PLT 242 103/ul Normal 150-450 [facility] Comment on above: Performed By: #### C BC ####[facility] Uyabredqxt4799 [place] [id number]. Emelina Navarro RBC 4.29 106/ul Critically low 4.70-6.10 The [facility] Comment on above: Performed By: #### C BC ####[facility] Hudksjgqme4650 [place] [address]Dr. Emelina Navarro WBC 10.8 103/ul Normal 4.0-11.0 [facility] Comment on above: Performed By: #### C BC ####[facility] Xzhikmrgys8072 [place] [address]Dr. Emelina Navarro PROF 14(COMP METB)on 023 Albumin [Mass/Vol] 2.7 g/dL Critically low 3.4-5.0 [facility] Comment on above: Performed By: #### B STRAIGHT PIN MAKING MACHINE OPERATOR, CMP ####[facility] Dauhhrscyv7[address] [place], [place] [address]Dr. Emelina Navarro Albumin/Globulin [Mass ratio] 0.6 {ratio} Normal [facility] Comment on above: Performed By: #### B STRAIGHT PIN MAKING MACHINE OPERATOR, CMP ####[facility] Ccebjsloht5218[address] [place], [place] [address]Dr. Emelina Navarro ALP [Catalytic activity/Vol] 105 U/L Normal 46-116 [facility] Comment on above: Performed By: #### B STRAIGHT PIN MAKING MACHINE OPERATOR, CMP ####[facility] Jttkrxyrtq3319[address] [place], [place] [address]Dr. Emelina Navarro ALT [Catalytic activity/Vol] 21 U/L Normal 16-63 [facility] Comment on above: Performed By: #### B STRAIGHT PIN MAKING MACHINE OPERATOR, CMP ####[facility] Mcepreyhwv9917 [place] [address]Dr. Emelina Navarro Anion gap [Moles/Vol] 11.6 mmol/L Normal [facility] Comment on above: Performed By: #### B STRAIGHT PIN MAKING MACHINE OPERATOR, CMP ####[facility] Kamgaqewef09[address] [place], [place] [address]Dr. Emelina Navarro AST [Catalytic activity/Vol] 25 U/L Normal 15-37 [facility] Comment on above: Performed By: #### B STRAIGHT PIN MAKING MACHINE OPERATOR, CMP ####[facility] Mtqvqpbiwb2108[address] [place], [place] [address]Dr. Emelina Navarro Bilirubin [Mass/Vol] 0.8 mg/dL Normal 0.2-1.0 [facility] Comment on above: Performed By: #### B STRAIGHT PIN MAKING MACHINE OPERATOR, CMP ####[facility] Zkipfhxmrt0734 [place] [address]Dr. Emelina Navarro Calcium [Mass/Vol] 8.1 mg/dL Critically low 8.5-10.1 [facility] Comment on above: Performed By: #### B STRAIGHT PIN MAKING MACHINE OPERATOR, CMP ####[facility] Jqvnaqmurk6[address] [place], [place] [address]Dr. Emelina Navarro Chloride [Moles/Vol] 100 mmol/L Normal 98-107 [facility] Comment on above: Performed By: #### B STRAIGHT PIN MAKING MACHINE OPERATOR, CMP ####[facility] Kqmhdlntjz5780[address] [place], [place] [address]Dr. Emelina Navarro CO2 [Moles/Vol] 29.2 mmol/L Normal 21.0-32.0 [facility] Comment on above: Performed By: #### B STRAIGHT PIN MAKING MACHINE OPERATOR, CMP ####[facility] Ifegqnoopv6975[address] [place], [place] [address]Dr. Emelina Navarro Creatinine [Mass/Vol] 1.66 mg/dL Critically high 0.70-1.30 [facility] Comment on above: Performed By: #### B STRAIGHT PIN MAKING MACHINE OPERATOR, CMP ####[facility] Nshfuofxbs6055[address] [place], [place] [address]Dr. Emelina Ramon EGFR-AF SURINAMESE 50 mL/min/1.73m2 Critically low >=60 [facility] Comment on above: Performed By: #### B STRAIGHT PIN MAKING MACHINE OPERATOR, CMP ####[facility] Gpbuxvfofo8[address] [place], [place] [address]Dr. Emelina Ramon EGFR-NON AF SURINAMESE 41 mL/min/1.73m2 Critically low >=60 [facility] Comment on above: Performed By: #### B STRAIGHT PIN MAKING MACHINE OPERATOR, CMP ####[facility] Zxholirzza3998[address] [place], [place] [address]Dr. Awildanitza Ramon Globulin (S) [Mass/Vol] 4.2 g/dL Normal [facility] Comment on above: Performed By: #### B STRAIGHT PIN MAKING MACHINE OPERATOR, CMP ####[facility] Zsckphvizp5424[address] [place], [place] [address]Dr. Emelina Navarro Glucose [Mass/Vol] 126 mg/dL Critically high 74-106 [facility] Comment on above: Performed By: #### B STRAIGHT PIN MAKING MACHINE OPERATOR, CMP ####[facility] Hohlpttjkf10[address] [place], [place] [address]Dr. Emelina Navarro Potassium [Moles/Vol] 3.8 mmol/L Normal 3.5-5.1 [facility] Comment on above: Performed By: #### B STRAIGHT PIN MAKING MACHINE OPERATOR, CMP ####[facility] Fafbuwkwve8220[address] [place], [place] [address]Dr. Emelina Navarro Protein [Mass/Vol] 6.9 g/dL Normal 6.4-8.2 [facility] Comment on above: Performed By: #### B STRAIGHT PIN MAKING MACHINE OPERATOR, CMP ####[facility] Kxsonynkgf5280[address] [place], [place] [address]Dr. Emelina Navarro Sodium [Moles/Vol] 137 mmol/L Normal 136-145 [facility] Comment on above: Performed By: #### B STRAIGHT PIN MAKING MACHINE OPERATOR, CMP ####[facility] Afmcwmoico5112[address] [place], [place] [address]Dr. Emelina Navarro Urea nitrogen [Mass/Vol] 32.0 mg/dL Critically high 7.0-18.0 [facility] Comment on above: Performed By: #### B STRAIGHT PIN MAKING MACHINE OPERATOR, CMP ####[facility] Bochygnman1439[address] [place], [place] [address]Dr. Emelina Navarro Urea nitrogen/Creatinine [Mass ratio] 19.3 mg/mg Normal [facility] Comment on above: Performed By: #### B STRAIGHT PIN MAKING MACHINE OPERATOR, CMP ####[facility] Qvjciawafy87[address] [place], [place] [address]Dr. Emelina Navarro PROTIMEon 03-28-2023 INR Coag (PPP) [Relative time] 2.59 {INR} Normal [facility] Comment on above: Performed By: #### P T ####[facility] Aydayutvfy20[address] [place], [place] [address]Dr. Emelina Navarro INR GUIDELINES SEE BELOW Normal [facility] Comment on above: Result Comment: WENDY RED INR: 2.0 - 3.0 CONDITIONS NOT LISTED BELOW 2.5 - 3.5 FOR PROSTHETIC HEART VALVE REPLACEMENT 2.5 - 3.5 RECURRENT THROMBOSIS Performed By: #### P T ####[facility] Voxwhhhxlf8[address] [place], [place] [address]Dr. Emelina Navarro PT Coag (PPP) [Time] 26.0 s Critically high 9.0-11.6 [facility] Comment on above: Performed By: #### P T ####[facility] Ewdjukliof[address] [place], [place] [address]Dr. Emelina Navarro SED RATE WESTERGRENon 2022 SED RATE 62 mm/hr Critically high <=20 The [facility] Comment on above: Performed By: #### S EDR ####[facility] K[address]ouwzxaa3[address] [place], [place] [address]Dr. Emelina Navarro BNPon 03-27-2023 Natriuretic peptide B (Bld) [Mass/Vol] 85656.0 pg/mL Critically high <=900.0 [facility] Comment on above: Performed By: #### B STRAIGHT PIN MAKING MACHINE OPERATOR ####[facility] Suzrupixid3336[address] [place], [place] [address]Dr. Emelina Navarro CARDIAC IMTIAZ 3-6on 3 CK [Catalytic activity/Vol] 59 U/L Normal 39-308 [facility] Comment on above: Performed By: #### C MREP ####[facility] [address] [place] [address]. Emelina Navarro CK.MB [Mass/Vol] 1.98 ng/mL Normal <=3.60 [facility] Comment on above: Performed By: #### C MREP ####[facility] Nizzxqcjca[address] [place], [place] [address]Dr. Emelina Navarro HSTROP 52.5 pg/mL Normal 4.0-76.1 [facility] Comment on above: Result Comment: CUT- OFF POINTS HAVE BEEN ESTABLISHED BASED ON THE FOURTH UNIVERSAL DEFINITIONS OF MYOCARDIALINFARCTION. THE UPPER REFERENCE LIMIT (URL) OF TROPONIN, DEFINED THE 99TH PERCENTILE OFcTnI DISTRIBUTION IN A REFERENCE POPULATION, HAS BEEN CONFIRMED THE DECISION THRESHOLDFOR [place] DIAGNOSIS. Performed By: #### C MREP ####[facility] Jkfevuhysw4208 [place] [id number]. Emelina Navarro CK [Catalytic activity/Vol] 41 U/L Normal 39-308 [facility] Comment on above: Performed By: #### C MREP ####[facility] Yjvdqgslkz9931 [place] [id number]. Emelina Navarro CK.MB [Mass/Vol] 1.26 ng/mL Normal <=3.60 [facility] Comment on above: Performed By: #### C MREP ####[facility] Erktzfvwcg6493 [place] [address]Dr. Emelina Navarro HSTROP 49.5 pg/mL Normal 4.0-76.1 [facility] Comment on above: Result Comment: CUT- OFF POINTS HAVE BEEN ESTABLISHED BASED ON THE FOURTH UNIVERSAL DEFINITIONS OF MYOCARDIALINFARCTION. THE UPPER REFERENCE LIMIT (URL) OF TROPONIN, DEFINED THE 99TH PERCENTILE OFcTnI DISTRIBUTION IN A REFERENCE POPULATION, HAS BEEN CONFIRMED THE DECISION THRESHOLDFOR [place] DIAGNOSIS. Performed By: #### C MREP ####[facility] Qyatgtnkmv7200 [place] [id number]. Emelina Navarro CBC AUTO DIFFon 03-27-2023 BASO # 0.0 103/ul Normal 0.0-0.1 [facility] Comment on above: Performed By: #### C BC ####[facility] Pdrvwkxewe5802 [place] [id number]. Emelina Navarro Basophils/100 WBC (Bld) 0.3 % Normal 0.2-2.0 [facility] Comment on above: Performed By: #### C BC ####[facility] Smcjdqciou3842 [place] [id number]. Emelina Navarro EO # 0.4 103/ul Normal 0.0-0.7 [facility] Comment on above: Performed By: #### C BC ####[facility] Paoithftbr3758 [place] [id number]. Emelina Navarro Eosinophils/100 WBC (Bld) 3.3 % Normal 0.9-7.0 [facility] Comment on above: Performed By: #### C BC ####[facility] Ympsyhqeee1669 [place] [address]Dr. Emelina Navarro Erythrocyte distribution width (RBC) [Ratio] 17.9 % Critically high 11.0-15.0 [facility] Comment on above: Performed By: #### C BC ####[facility] Edsjhwpivd5247 [place] [address]Dr. Emelina Navarro Hematocrit (Bld) [Volume fraction] 42.3 % Normal 42.0-54.0 [facility] Comment on above: Performed By: #### C BC ####[facility] Balynrnwck[address] [place], [place] [address]Dr. Emelina Navarro Hemoglobin (Bld) [Mass/Vol] 13.8 g/dL Critically low 14.0-18.0 [facility] Comment on above: Performed By: #### C BC ####[facility] Upqpjwktin9250[address] [place], [place] [address]Dr. Awildanitza Navarro IG # 0.07 10e3/ul Critically high 0.00-0.03 [facility] Comment on above: Performed By: #### C BC ####[facility] [address]klskwra[address] [place], [place] [address]Dr. Emelina Navarro IG % 0.5 % Normal 0.0-0.5 [facility] Comment on above: Performed By: #### C BC ####[facility] Gqzwohfuyl[address] [place], [place] [address]Dr. Awildanitza Navarro LYMPH # 2.3 103/ul Normal 1.2-3.8 [facility] Comment on above: Performed By: #### C BC ####[facility] Uausmwmqbo[address] [place], [place] [address]Dr. Awildanitza Navarro Lymphocytes/100 WBC (Bld) 17.5 % Critically low 20.5-60.0 [facility] [facility] Comment on above: Performed By: #### C BC ####[facility] F[address]grovscl[address] [place], [place] [address]Dr. Awildanitza Navarro MANUAL DIFF REQ NO Normal The [facility] Comment on above: Performed By: #### C BC ####[facility] Fbvywvqvah4[address] [place] [id number]. Emelina Navarro MCH (RBC) [Entitic mass] 29.3 pg Normal 25.9-34.0 [facility] Comment on above: Performed By: #### C BC ####[facility] Rouydofqzd56[address] [place] [id number]. Emelina Navarro MCHC (RBC) [Mass/Vol] 32.6 g/dL Normal 29.9-35.2 [facility] Comment on above: Performed By: #### C BC ####[facility] Mrrztcbhzh7749 [place] [phone]. Emelina Navarro MCV (RBC) [Entitic vol] 89.8 fL Normal 80.0-94.0 [facility] Comment on above: Performed By: #### C BC ####[facility] Ymfobrxpto6[address] [place] [address]Dr. Emelina Ramon MONO # 1.0 103/ul Critically high 0.3-0.8 The [facility] Comment on above: Performed By: #### C BC ####[facility] Wyuflnxwdf8199 [place] [address]Dr. Awildanitza Navarro Monocytes/100 WBC (Bld) 7.8 % Normal 1.7-12.0 [facility] Comment on above: Performed By: #### C BC ####[facility] Ccejieyujs6[address] [place] [id number]. Emelina Navarro NEUT # 9.3 103/ul Critically high 1.4-6.5 The [facility] Comment on above: Performed By: #### C BC ####[facility] Ddvdpvepmg[address] [place], [place] [id number]. Emelina Navarro Neutrophils/100 WBC (Bld) 70.6 % Normal 43.0-75.0 [facility] Comment on above: Performed By: #### C BC ####[facility] Wwccvrndkp[address] [place], [place] [id number]. Emelina Navarro Platelet mean volume (Bld) [Entitic vol] 9.6 fL Normal 9.5-13.5 [facility] Comment on above: Performed By: #### C BC ####[facility] Kbxguzbqmb4351 [place] [phone]. Emelina Navarro PLT 248 103/ul Normal 150-450 [facility] Comment on above: Performed By: #### C BC ####[facility] Xpdlrzmeob6913 [place] [phone]. Emelina Navarro RBC 4.71 106/ul Normal 4.70-6.10 [facility] Comment on above: Performed By: #### C BC ####[facility] Sdvrqftlqu6375 [place] [id number]. Emelina Navarro WBC 13.2 103/ul Critically high 4.0-11.0 [facility] Comment on above: Performed By: #### C BC ####[facility] Qcuyzzmebq1601 [place] [phone]. Emelina Navarro DIGOXINon 03-27-2023 DIG 1.1 ng/mL Normal 0.9-2.0 [facility] Comment on above: Performed By: #### D IG ####[facility] Gftewakvov8173 [place] [phone]. Emelina Navarro LACTATE/LACTIC ACIDon 2022 Lactate [Moles/Vol] 0.8 mmol/L Normal 0.4-2.0 The [facility] Comment on above: Performed By: #### L ACT ####[facility] Blpgfkotki64[address] [place], [place] [id number]. Emelina Navarro LIPID PROFILEon 03-27-2023 CHOL-HDL RATIO NORM SEE BELOW Normal The [facility] Comment on above: Result Comment: 3.3 - 4.4 LOW RISK 4.4 - 7.1 AVERAGE RISK 7.1 - 11.0 MODERATE RISK >11.0 HIGH RISK Performed By: #### L IPID, TSH ####[facility] Zlzmqztrcn7[address] [place] [address]Dr. Emelina Navarro Cholesterol [Mass/Vol] 86 mg/dL Normal <=200 [facility] Comment on above: Performed By: #### L IPID, TSH ####[facility] Fmewntvjdz3018 [place] [phone]. Emelina Navarro Cholesterol in HDL [Mass/Vol] 29 mg/dL Critically low 40-60 [facility] Comment on above: Performed By: #### L IPID, TSH ####[facility] Sqzyggdqaj2317 [place] [address]Dr. Emelina Navarro Cholesterol in LDL [Mass/Vol] 37.8 mg/dL Normal [facility] Comment on above: Performed By: #### L IPID, TSH ####[facility] Xamfxketiz3696 [place] [address]Dr. Emelina Navarro Cholesterol.total/Cho lesterol in HDL [Mass ratio] 3.0 {ratio} Normal [facility] Comment on above: Performed By: #### L IPID, TSH ####[facility] Zrwfnsengs[address] [place], [place] [address]Dr. Emelina Navarro HDL NORMAL > or = 60 mg/dl - LO W CARDIOVASCULAR RISK <40 mg/dl - HIGH CARDIOVASCULAR RISK Normal [facility] Comment on above: Performed By: #### L IPID, TSH ####[facility] Vbrjkwqqxw[address] [place], [place] [address]Dr. Emelina Navarro LDL CALC NORMAL SEE BELOW Normal The [facility] Comment on above: Result Comment: <100 mg/dl OPTIMAL 100 - 129 mg/dl NEAR OR ABOVE OPTIMAL 130 - 159 mg/dl BORDERLINE HIGH 160 - 189 mg/dl HIGH >190 mg/dl VERY HIGH Performed By: #### L IPID, TSH ####[facility] Kqbzkhigvh0737 [place] [address]Dr. Emelina Navarro Triglyceride [Mass/Vol] 96 mg/dL Normal <=150 [facility] Comment on above: Performed By: #### L IPID, TSH ####[facility] Gwxgktuvkc5521 [place] [address]Dr. Emelina Navarro VLDL CALC 19.2 mg/dL Normal [facility] Comment on above: Performed By: #### L IPID, TSH ####[facility] Xkoknvjrri2413 [place] [phone]. Emelina Navarro POINT OF CARE GLUCOSEon 05-0 Glucose [Mass/Vol] 175 mg/dL Critically high 74-106 [facility] Comment on above: Performed By: #### P OCGLUC ####[facility] Johcdruqzs3335[address] [place], [place] [address]Dr. Emelina Navarro Glucose [Mass/Vol] 196 mg/dL Critically high 74-106 [facility] Comment on above: Performed By: #### P OCGLUC ####[facility] Khdtvqahjp69[address] [place], [place] [address]Dr. Emelina Navarro PROF 14(COMP METB)on 023 Albumin [Mass/Vol] 2.9 g/dL Critically low 3.4-5.0 [facility] Comment on above: Performed By: #### C MP ####[facility] Nuoimbkher7058[address] [place], [place] [address]Dr. Emelina Navarro Albumin/Globulin [Mass ratio] 0.6 {ratio} Normal [facility] Comment on above: Performed By: #### C MP ####[facility] Beklkmnhgw[address] [place], [place] [address]Dr. Emelina Navarro ALP [Catalytic activity/Vol] 112 U/L Normal 46-116 [facility] Comment on above: Performed By: #### C MP ####[facility] Zkozszfosv13[address] [place], [place] [address]Dr. Emelina Navarro ALT [Catalytic activity/Vol] 23 U/L Normal 16-63 [facility] Comment on above: Performed By: #### C MP ####[facility] Yiyzprgurw4[address] [place], [place] [address]Dr. Emelina Navarro Anion gap [Moles/Vol] 9.5 mmol/L Normal [facility] Comment on above: Performed By: #### C MP ####[facility] Seudccydnr[address]36[address] [place], [place] [address]Dr. Emelina Navarro AST [Catalytic activity/Vol] 30 U/L Normal 15-37 [facility] Comment on above: Performed By: #### C MP ####[facility] Nmauqlpacm558[address] [place], [place] [address]Dr. Emelina Navarro Bilirubin [Mass/Vol] 0.8 mg/dL Normal 0.2-1.0 [facility] Comment on above: Performed By: #### C MP ####[facility] Dpjffliaxl9348[address] [place], [place] [address]Dr. Awildanitza Ramon Calcium [Mass/Vol] 8.2 mg/dL Critically low 8.5-10.1 Th e [facility] Comment on above: Performed By: #### C MP ####[facility] Xxiwtoaliz7[address] [place], [place] [address]Dr. Emelina Navarro Chloride [Moles/Vol] 100 mmol/L Normal 98-107 [facility] Comment on above: Performed By: #### C MP ####[facility] Ampvdcsplo9[address] [place], [place] [address]Dr. Emelina Navarro CO2 [Moles/Vol] 32.9 mmol/L Critically high 21.0-32.0 [facility] Comment on above: Performed By: #### C MP ####[facility] Yefkkodmnl50[address] [place], [place] [address]Dr. Emelina Navarro Creatinine [Mass/Vol] 1.60 mg/dL Critically high 0.70-1.30 [facility] Comment on above: Performed By: #### C MP ####[facility] Nsimesgabn[address] [place], [place] [address]Dr. Emelina Navarro EGFR-AF SURINAMESE 52 mL/min/1.73m2 Critically low >=60 [facility] Comment on above: Performed By: #### C MP ####[facility] Ciexhkqwcz65[address] [place], [place] [address]Dr. Emelina Navarro EGFR-NON AF SURINAMESE 43 mL/min/1.73m2 Critically low >=60 [facility] Comment on above: Performed By: #### C MP ####[facility] Zmxnsunpqa8409[address] [place], [place] [address]Dr. Emelina Navarro Globulin (S) [Mass/Vol] 4.6 g/dL Normal [facility] Comment on above: Performed By: #### C MP ####[facility] Dzaszoydch8[address] [place], [place] [address]Dr. Emelina Navarro Glucose [Mass/Vol] 76 mg/dL Normal 74-106 The [facility] Comment on above: Performed By: #### C MP ####[facility] Deeenbctxh27[address] [place] [address]Dr. Emelina Ramon Potassium [Moles/Vol] 3.4 mmol/L Critically low 3.5-5.1 [facility] Comment on above: Performed By: #### C MP ####[facility] Kaohrdllfc268[address] [place], [place] [address]Dr. Emelina Ramon Protein [Mass/Vol] 7.5 g/dL Normal 6.4-8.2 [facility] Comment on above: Performed By: #### C MP ####[facility] Wpghcqgvcl[address] [place], [place] [address]Dr. Emelina Navarro Sodium [Moles/Vol] 139 mmol/L Normal 136-145 [facility] Comment on above: Performed By: #### C MP ####[facility] Aulhvwtnqx8269[address] [place], [place] [address]Dr. Emelina Ramon Urea nitrogen [Mass/Vol] 30.0 mg/dL Critically high 7.0-18.0 [facility] Comment on above: Performed By: #### C MP ####[facility] Xkwrxxcmgw529[address] [place], [place] [address]Dr. Emelina Ramon Urea nitrogen/Creatinine [Mass ratio] 18.8 mg/mg Normal [facility] Comment on above: Performed By: #### C MP ####[facility] Oyftxfzoge20[address] [place], [place] [address]Dr. Emelina Ramon PROTIMEon 03-27-2023 INR Coag (PPP) [Relative time] 2.58 {INR} Normal [facility] Comment on above: Performed By: #### P T ####[facility] Krfshvzwpv8139[address] [place], [place] [address]Dr. Awildanitza Ramon INR GUIDELINES SEE BELOW Normal The [facility] Comment on above: Result Comment: WENDY RED INR: 2.0 - 3.0 CONDITIONS NOT LISTED BELOW 2.5 - 3.5 FOR PROSTHETIC HEART VALVE REPLACEMENT 2.5 - 3.5 RECURRENT THROMBOSIS Performed By: #### P T ####[facility] Qlvesdjdez5331 [place] [address]DrWesley Navarro PT Coag (PPP) [Time] 25.9 s Critically high 9.0-11.6 [facility] Comment on above: Performed By: #### P T ####[facility] Dwxykbgunq[address] [place], [place] [address]DrWesley Navarro T4on 03-27-2023 T4 [Mass/Vol] 6.50 ug/dL Normal 4.50-12.10 The [facility] Comment on above: Performed By: #### T 4 ####[facility] Icdmwrlqwp17[address] [place], [place] [address]Dr. Emelina Navarro TSHon 03-27-2023 TSH 5.619 uIU/mL Critically high 0.358-3.74 0 [facility] Comment on above: Performed By: #### L IPID, TSH ####[facility] Wiunbgcqbu7665[address] [place], [place] [address]DrWesley Navarro US FERNY DOP LEG RTon 03-27-20 23 US FERNY DOP LEG RT Normal [facility] XR CHEST 1 Von 03-27-2023 XR CHEST 1 V Normal [facility] XR FOOT RT MIN 3 VIEWSon XR FOOT RT MIN 3 VIEWS Normal [facility] BNPon 03-26-2023 Natriuretic peptide B (Bld) [Mass/Vol] 71815.0 pg/mL Critically high <=900.0 [facility] Comment on above: Performed By: #### B MP, CRP, CMADM, BNP ####[facility] Iejakekbpf60[address] [place] [address]Dr. Emelina Navarro CARDIAC IMTIAZ ADMITon 023 CK [Catalytic activity/Vol] 48 U/L Normal 39-308 [facility] Comment on above: Performed By: #### B MP, CRP, CMADM, BNP ####[facility] Ktvloadoud8[address] [place] [address]DrWesley Navarro CK.MB [Mass/Vol] 1.48 ng/mL Normal <=3.60 [facility] Comment on above: Performed By: #### B MP, CRP, CMADM, BNP ####[facility] Viwaqkbeem[address] [place] [address]Dr. Emelina Ramon HSTROP 49.9 pg/mL Normal 4.0-76.1 [facility] Comment on above: Result Comment: CUT- OFF POINTS HAVE BEEN ESTABLISHED BASED ON THE FOURTH UNIVERSAL DEFINITIONS OF MYOCARDIALINFARCTION. THE UPPER REFERENCE LIMIT (URL) OF TROPONIN, DEFINED THE 99TH PERCENTILE OFcTnI DISTRIBUTION IN A REFERENCE POPULATION, HAS BEEN CONFIRMED THE DECISION THRESHOLDFOR [place] DIAGNOSIS. Performed By: #### B MP, CRP, CMADM, BNP ####[facility] Lxoweqitjy5[address] [place] [address]Dr. Emelina Navarro URBANO 117 ng/mL Critically high 16-96 [facility] Comment on above: Performed By: #### B MP, CRP, CMADM, BNP ####[facility] Tsoinhxwrz1638 [place] [address]Dr. Emelina Navarro CBC AUTO DIFFon 03-26-2023 BASO # 0.1 103/ul Normal 0.0-0.1 [facility] Comment on above: Performed By: #### C BC ####[facility] Ijlftdcscs80[address] [place], [place] [address]Dr. Emelina Navarro Basophils/100 WBC (Bld) 0.4 % Normal 0.2-2.0 [facility] Comment on above: Performed By: #### C BC ####[facility] Kzitljolut88[address] [place], [place] [address]Dr. Emelina Navarro EO # 0.5 103/ul Normal 0.0-0.7 [facility] Comment on above: Performed By: #### C BC ####[facility] Jtylxvrarx08[address] [place], [place] [address]Dr. Emelina Navarro Eosinophils/100 WBC (Bld) 3.5 % Normal 0.9-7.0 [facility] Comment on above: Performed By: #### C BC ####[facility] C[address]ukvejtz27[address] [place], [place] [address]Dr. Emelina Navarro Erythrocyte distribution width (RBC) [Ratio] 17.7 % Critically high 11.0-15.0 [facility] Comment on above: Performed By: #### C BC ####[facility] Tqzzxkgvdf4640 [place] [address]Dr. Emelina Navarro Hematocrit (Bld) [Volume fraction] 42.6 % Normal 42.0-54.0 [facility] Comment on above: Performed By: #### C BC ####[facility] Oprfogrdrg8516[address] [place], [place] [address]Dr. Emelina Navarro Hemoglobin (Bld) [Mass/Vol] 14.2 g/dL Normal 14.0-18.0 [facility] Comment on above: Performed By: #### C BC ####[facility] Saadqdipfj82[address] [place], [place] [address]Dr. Emelina Navarro IG # 0.09 10e3/ul Critically high 0.00-0.03 [facility] Comment on above: Performed By: #### C BC ####[facility] Oadwnwdlcw[address] [place], [place] [address]Dr. Emelina Navarro IG % 0.7 % Critically high 0.0-0.5 The [facility] Comment on above: Performed By: #### C BC ####[facility] Otiguvhsjf35[address] [place], [place] [address]Dr. Emelina Ramon LYMPH # 2.3 103/ul Normal 1.2-3.8 [facility] Comment on above: Performed By: #### C BC ####[facility] Rnhdkwilef8540[address] [place], [place] [address]Dr. Emelina Navarro Lymphocytes/100 WBC (Bld) 17.3 % Critically low 20.5-60.0 [facility] Comment on above: Performed By: #### C BC ####[facility] [address]axdtezceo[address] [place], [place] [address]Dr. Emelina Ramon MANUAL DIFF REQ NO Normal The [facility] Comment on above: Performed By: #### C BC ####[facility] Amuxwuxtnw924[address] [place], [place] [address]Dr. Emelina Navarro MCH (RBC) [Entitic mass] 29.6 pg Normal 25.9-34.0 [facility] Comment on above: Performed By: #### C BC ####[facility] Bdtjduxtig75[address] [place] [address]Dr. Emelina Navarro MCHC (RBC) [Mass/Vol] 33.3 g/dL Normal 29.9-35.2 [facility] Comment on above: Performed By: #### C BC ####[facility] [address]zowjnpj3[address] [place], [place] [address]Dr. Emelina Navarro MCV (RBC) [Entitic vol] 88.9 fL Normal 80.0-94.0 [facility] Comment on above: Performed By: #### C BC ####[facility] Aovazdaodf8[address] [place], [place] [address]Dr. Emelina Ramon MONO # 1.3 103/ul Critically high 0.3-0.8 The [facility] Comment on above: Performed By: #### C BC ####[facility] Zegdiqozwt954[address] [place], [place] [address]Dr. Awildanitza Navarro Monocytes/100 WBC (Bld) 9.7 % Normal 1.7-12.0 [facility] Comment on above: Performed By: #### C BC ####[facility] Kmp[address]stwcb[address] [place], [place] [address]Dr. Emelina Navarro NEUT # 9.2 103/ul Critically high 1.4-6.5 The [facility] Comment on above: Performed By: #### C BC ####[facility] Uaaonltmnh9[address] [place], [place] [address]Dr. Awildanitza Navarro Neutrophils/100 WBC (Bld) 68.4 % Normal 43.0-75.0 [facility] Comment on above: Performed By: #### C BC ####[facility] [address]tljyjfrt85[address] [place], [place] [address]Dr. Emelina Ramon Platelet mean volume (Bld) [Entitic vol] 9.6 fL Normal 9.5-13.5 [facility] Comment on above: Performed By: #### C BC ####[facility] Xwafmxajwf8[address] [place] [address]Dr. Emelina Navarro PLT 271 103/ul Normal 150-450 [facility] Comment on above: Performed By: #### C BC ####[facility] Apqbseuraw[address] [place], [place] [address]Dr. Emelina Navarro RBC 4.79 106/ul Normal 4.70-6.10 [facility] Comment on above: Performed By: #### C BC ####[facility] [address]zykoqppl17[address] [place], [place] [address]Dr. Emelina Navarro WBC 13.4 103/ul Critically high 4.0-11.0 [facility] Comment on above: Performed By: #### C BC ####[facility] Zskqcnmtxz7[address] [place], [place] [address]Dr. Emelina Navarro CRPon 03-26-2023 CRP 4.6 mg/dL Critically high <=1.0 [facility] Comment on above: Performed By: #### B MP, CRP, CMADM, BNP ####[facility] Dqeuaddgks8[address] [place], [place] [address]Dr. Emelina Navarro LACTATE/LACTIC ACIDon 2022 Lactate [Moles/Vol] 1.6 mmol/L Normal 0.4-2.0 [facility] Comment on above: Performed By: #### L ACT ####[facility] [address]scjacdsv[address] [place], [place] [address]Dr. Emelina Ramon PROF CHEM 8 (BAS METB)on Anion gap [Moles/Vol] 9.6 mmol/L Normal [facility] Comment on above: Performed By: #### B MP, CRP, CMADM, BNP ####[facility] [address]fdrycmpn[address] [place], [place] [address]Dr. Emelina Navarro Calcium [Mass/Vol] 8.4 mg/dL Critically low 8.5-10.1 [facility] Comment on above: Performed By: #### B MP, CRP, CMADM, BNP ####[facility] [address]qxglevv[address] [place], [place] [address]Dr. Emelina Navarro Chloride [Moles/Vol] 102 mmol/L Normal 98-107 [facility] Comment on above: Performed By: #### B MP, CRP, CMADM, BNP ####[facility] [address]pzyalzgza[address] [place] [address]Dr. Emelina Navarro CO2 [Moles/Vol] 30.9 mmol/L Normal 21.0-32.0 [facility] Comment on above: Performed By: #### B MP, CRP, CMADM, BNP ####[facility] Upbphpvtgr[address] [place] [address]Dr. Emelina Navarro Creatinine [Mass/Vol] 1.73 mg/dL Critically high 0.70-1.30 [facility] Comment on above: Performed By: #### B MP, CRP, CMADM, BNP ####[facility] Usikuvfxhl[address]94 [place] [address]Dr. Emelina Navarro EGFR-AF SURINAMESE 48 mL/min/1.73m2 Critically low >=60 [facility] Comment on above: Performed By: #### B MP, CRP, CMADM, BNP ####[facility] [address]fkmyukugb4[address] [place] [address]Dr. Emelina Navarro EGFR-NON AF SURINAMESE 39 mL/min/1.73m2 Critically low >=60 [facility] Comment on above: Performed By: #### B MP, CRP, CMADM, BNP ####[facility] Dxrctqbklk75[address] [place] [address]Dr. Emelina Navarro Glucose [Mass/Vol] 73 mg/dL Critically low 74-106 [facility] Comment on above: Performed By: #### B MP, CRP, CMADM, BNP ####[facility] Fomckdzemn[address] [place] [address]Dr. Emelina Navarro Potassium [Moles/Vol] 3.5 mmol/L Normal 3.5-5.1 [facility] Comment on above: Performed By: #### B MP, CRP, CMADM, BNP ####[facility] Ylpxxgcxls32[address] [place] [address]Dr. Emelina Navarro Sodium [Moles/Vol] 139 mmol/L Normal 136-145 [facility] Comment on above: Performed By: #### B MP, CRP, CMADM, BNP ####[facility] Rdefhbtiur[address] [place] [address]Dr. Emelina Navarro Urea nitrogen [Mass/Vol] 29.0 mg/dL Critically high 7.0-18.0 [facility] Comment on above: Performed By: #### B MP, CRP, CMADM, BNP ####[facility] [address]ibdxpjbgc[address] [place] [address]Dr. Emelina Navarro Urea nitrogen/Creatinine [Mass ratio] 16.8 mg/mg Normal [facility] Comment on above: Performed By: #### B MP, CRP, CMADM, BNP ####[facility] Iczlvfhnyu[address] [place] [address]Dr. Emelina Navarro [facility] 60 mm/hr Critically high <=20 [facility] Comment on above: Performed By: #### S EDR ####[facility] [address]klwd[address] [place] [address]Dr. Emelina Navarro Office Visiton 03-21-2023 Follow-up visit [id number] Adwoa Porter 1955 M Date Provider Department Center 03/21/2023 DAHIANA LOCKHART [facility] Family History Problem Relation Age of Onset Diabetes Mother Hypertension Mother Coronary artery disease Mother Family Status - Relation Status Age at Mother Level of Service:[address]505 [place] OFFICE/OUTPATIENT ESTABLISHED MOD MDM 30-39 MIN Normal [facility] Basic Metabolic Panelon 04-0 Anion gap [Moles/Vol] 13.7 mmol/L Normal 6.0-15.0 [facility] Comment on above: Order Comment: Comme nt add on if possible Performed By: #### M G #### [facility] [address] Calcium [Mass/Vol] 9.2 mg/dL Normal 8.6-10.3 [facility] Comment on above: Order Comment: Comme nt add on if possible Result Comment: PERF ORMED BY: [place] [address] PATHOLOGIST CODING MANAGER RAFA BYRNE M.D. Performed By: #### M G #### [place] [address] [place] Chloride [Moles/Vol] 94 mmol/L Low 98-107 [facility] Comment on above: Order Comment: Comme nt add on if possible Performed By: #### M G #### [place] [address] [place] CO2 [Moles/Vol] 31.1 mmol/L High 21.0-31.0 [facility] Comment on above: Order Comment: Comme nt add on if possible Performed By: #### M G #### [address] Creatinine [Mass/Vol] 1.57 mg/dL High 0.70-1.30 [facility] Comment on above: Order Comment: Comme nt add on if possible Performed By: #### M G #### [place] [address] [place] GFR/1.73 sq M.predicted MDRD (S/P/Bld) [Vol rate/Area] 47.712 mL/min/{1.73_m2} Normal [facility] Comment on above: Order Comment: Comme nt add on if possible Performed By: #### M G #### [place] [address] [place] Glucose [Mass/Vol] 67 mg/dL Low 70-100 [facility] Comment on above: Order Comment: Comme nt add on if possible Result Comment: [place] Glucose Reference Range is dependent on time and content of last meal. Glucose of more than 200 mg/dL in a nonstressed, ambulatory subject supports the diagnosis of Diabetes Mellitus. ADA recommended reference range Performed By: #### M G #### [place] [address] [place] Potassium [Moles/Vol] 3.8 mmol/L Normal 3.5-5.1 [facility] Comment on above: Order Comment: Comme nt add on if possible Performed By: #### M G #### [facility] [address] [id number] [place] Sodium [Moles/Vol] 135 mmol/L Low 136-145 [facility] Comment on above: Order Comment: Comme nt add on if possible Performed By: #### M G #### [facility] [address] [id number] [place] Urea nitrogen [Mass/Vol] 25 mg/dL Normal 7-25 [facility] Comment on above: Order Comment: Comme nt add on if possible Performed By: #### M G #### [facility] [address] Calcium [Mass/volume] in Ser um or PlasmaOrdered By: Yakov To on 02-21-2023 Calcium [Mass/Vol] 9.2 mg/dL 8.6-10.3 [facility] Carbon dioxide, total [Moles /volume] in Serum or PlasmaOrdered By: Yakov To on 02-21-2023 CO2 [Moles/Vol] 31.1 mmol/L 21.0-31.0 [facility] Chloride [Moles/volume] in S mary or PlasmaOrdered By: Yakov To on 02-21-2023 Chloride [Moles/Vol] 94 mmol/L 98-107 [facility] Creatinine [Mass/volume] in Serum or PlasmaOrdered By: Yakov To on 02-21-2023 Creatinine [Mass/Vol] 1.57 mg/dL 0.70-1.30 [facility] Glucose [Mass/volume] in Ser um or PlasmaOrdered By: Yakov To on 02-21-2023 Glucose [Mass/Vol] 67 mg/dL 70-100 [facility] Comment on above: ADA recommended refe rence rangeRandom Glucose Reference Range is dependent on time and content of last meal. Glucose of more than 200 mg/dL in a nonstressed, ambulatory subject supports the diagnosis of Diabetes Mellitus. No Panel InformationOrdered By: Yakov To on 02-21-2023 Estimated GFR (CKD-EPI) 47.712 mL/Min [facility] Creatinine Clearance (Chem N/A [facility] Potassium [Moles/volume] in Serum or PlasmaOrdered By: Yakov To on 02-21-2023 Potassium [Moles/Vol] 3.8 mmol/L 3.5-5.1 [facility] Serum or plasma anion gap de terminationOrdered By: Yakov To on 02-21-2023 Anion gap [Moles/Vol] 13.7 mmol/L 6.0-15.0 [facility] Sodium [Moles/volume] in Ser um or PlasmaOrdered By: Yakov To on 02-21-2023 Sodium [Moles/Vol] 135 mmol/L 136-145 [facility] Urea nitrogen [Mass/volume] in Serum or PlasmaOrdered By: Yakov To on 02-21-2023 Urea nitrogen [Mass/Vol] 25 mg/dL 7-25 [facility] A1C with Estimated Average G luon 02-14-2023 Glucose [Mass/Vol] 252 mg/dL Normal [facility] Comment on above: Result Comment: PERF ORMED BY: [place] [address] PATHOLOGIST CODING MANAGER RAFA BYRNE M.D. Performed By: #### B MP, A1C WTH eA, MG #### [facility] [address] [place] [address] HbA1c (Bld) [Mass fraction] 10.4 % High 4.3-5.6 [facility] Comment on above: Result Comment: Incr eased risk for diabetes: 5.7 - 6.4 diabetes: >6.4 glycemic control for adults with diabetes: <7.0 Performed By: #### B MP, A1C WTH eA, MG #### [facility] [address] [place] [address] Basic Metabolic Panelon 01-18 Anion gap [Moles/Vol] 13.4 mmol/L Normal 6.0-15.0 [facility] Comment on above: Performed By: #### B MP, A1C WTH eA, MG #### [facility] [address] [place] [address] [place] Calcium [Mass/Vol] 9.1 mg/dL Normal 8.6-10.3 [facility] Comment on above: Performed By: #### B MP, A1C WTH eA, MG #### [facility] [address] [place] [address] [place] Chloride [Moles/Vol] 95 mmol/L Low 98-107 [facility] Comment on above: Performed By: #### B MP, A1C WTH eA, MG #### [facility] [address] [place] [address] [place] CO2 [Moles/Vol] 30.7 mmol/L Normal 21.0-31.0 [facility] Comment on above: Performed By: #### B MP, A1C WTH eA, MG #### [facility] [address] [place] [address] [place] Creatinine [Mass/Vol] 1.65 mg/dL High 0.70-1.30 [facility] Comment on above: Performed By: #### B MP, A1C WTH eA, MG #### [facility] [address] [place] [address] [place] Creatinine Clr Calc Pharmacy 49.22 [facility] Comment on above: Performed By: #### B MP, A1C WTH eA, MG #### [facility] [address] [place] [address] [place] GFR/1.73 sq M.predicted MDRD (S/P/Bld) [Vol rate/Area] 44.950 mL/min/{1.73_m2} [facility] Comment on above: Performed By: #### B MP, A1C WTH eA, MG #### [facility] [address] [place] [address] [place] Glucose [Mass/Vol] 193 mg/dL Significant change up 70-100 [facility] Comment on above: Result Comment: [place] Glucose Reference Range is dependent on time and content of last meal. Glucose of more than 200 mg/dL in a nonstressed, ambulatory subject supports the diagnosis of Diabetes Mellitus. ADA recommended reference range Performed By: #### B MP, A1C WTH eA, MG #### [facility] [address] [place] [address] [place] Potassium [Moles/Vol] 3.1 mmol/L Low 3.5-5.1 [facility] Comment on above: Performed By: #### B MP, A1C WTH eA, MG #### [facility] [address] [place] [address] [place] Sodium [Moles/Vol] 136 mmol/L Significant change down 136-145 [facility] Comment on above: Performed By: #### B MP, A1C WTH eA, MG #### [facility] [address] [place] [address] [place] Urea nitrogen [Mass/Vol] 43 mg/dL High 7-25 [facility] Comment on above: Performed By: #### B MP, A1C WTH eA, MG #### [facility] [address] Calcium [Mass/volume] in Ser um or PlasmaOrdered By: Yakov To on 02-14-2023 Calcium [Mass/Vol] 9.1 mg/dL 8.6-10.3 [facility] Carbon dioxide, total [Moles /volume] in Serum or PlasmaOrdered By: Yakov To on 02-14-2023 CO2 [Moles/Vol] 30.7 mmol/L 21.0-31.0 [facility] Chloride [Moles/volume] in S mary or PlasmaOrdered By: Yakov To on 02-14-2023 Chloride [Moles/Vol] 95 mmol/L 98-107 [facility] Creatinine [Mass/volume] in Serum or PlasmaOrdered By: Yakov To on 02-14-2023 Creatinine [Mass/Vol] 1.65 mg/dL 0.70-1.30 [facility] Glucose Glucometer (BldC) [M ass/Vol]Ordered By: Yakov To on 02-14-2023 Glucose [Mass/Vol] 197 mg/dL [facility] Comment on above: Random Glucose Refer ence Range is dependent on time and content of last meal. Glucose of more than 200 mg/dL in a nonstressed, ambulatory subject supports the diagnosis of Diabetes Mellitus. Glucose Poct Glucometerson 0 02-14-2023 Glucose [Mass/Vol] 197 mg/dL Normal [facility] Comment on above: Result Comment: [place] om Glucose Reference Range is dependent on time and content of last meal. Glucose of more than 200 mg/dL in a nonstressed, ambulatory subject supports the diagnosis of Diabetes Mellitus. PERFORMED BY: [place] [address] PATHOLOGIST CODING MANAGER RAFA BYRNE M.D. Performed By: #### U A #### [facility] [address] [place] [address] Glucose [Mass/Vol] 350 mg/dL Normal [facility] Comment on above: Result Comment: [place] Glucose Reference Range is dependent on time and content of last meal. Glucose of more than 200 mg/dL in a nonstressed, ambulatory subject supports the diagnosis of Diabetes Mellitus. PERFORMED BY: [place] [address] PATHOLOGIST CODING MANAGER RAFA BYRNE M.D. Performed By: #### U A #### [facility] [address] [place] [address] Glucose [Mass/Vol] 216 mg/dL Normal [facility] Comment on above: Result Comment: [place] Glucose Reference Range is dependent on time and content of last meal. Glucose of more than 200 mg/dL in a nonstressed, ambulatory subject supports the diagnosis of Diabetes Mellitus. PERFORMED BY: [place] [address] PATHOLOGIST CODING MANAGER RAFA BYRNE M.D. Performed By: #### G LULS #### Point of Care testing , Glucose [Mass/volume] in Ser um or PlasmaOrdered By: Yakov To on 02-14-2023 Glucose [Mass/Vol] 193 mg/dL 70-100 [facility] Comment on above: Delta: 400 on [...] from glycated hemoglobin (Bld) [Mass/Vol] 252 mg/dL [facility] Hemoglobin A1c percentageOrd ered By: Yakov To on 02-14-2023 HbA1c (Bld) [Mass fraction] 10.4 % 4.3-5.6 [facility] Comment on above: Increased risk for d iabetes: 5.7 - 6.4diabetes: >6.4glycemic control for adults with diabetes: <7.0 Laboratory - Chemistry and C hemistry - challengeOrdered By: Yakov To on 02-14-2023 GFR/1.73 sq M.predicted MDRD (S/P/Bld) [Vol rate/Area] 44.950 mL/min/{1.73_m2} [facility] Laboratory - CoagulationOrde red By: Yakov To on 02-14-2023 PT Coag (PPP) [Time] 25.6 s 9.0-12.9 [facility] Magnesiumon 02-14-2023 Magnesium [Mass/Vol] 2.4 mg/dL Normal 1.9-2.7 [facility] Comment on above: Result Comment: PERF ORMED BY: [place] [address] PATHOLOGIST CODING MANAGER RAFA BYRNE M.D. Performed By: #### B MP, A1C WT eA, MG #### [facility] [address] Magnesium [Mass/volume] in S mary or PlasmaOrdered By: Yakov To on 02-14-2023 Magnesium [Mass/Vol] 2.4 mg/dL 1.9-2.7 [facility] No Panel InformationOrdered By: Yakov To on 02-14-2023 Pharmacy Creatinine Clearance (Chem 49.22 [facility] Platelet poor plasma interna tional normalized ratio (INR) by coagulation assay (relatOrdered By: Yakov To on 02-14-2023 INR Coag (PPP) [Relative time] 2.2 {INR} [facility] Comment on above: INR Therapeutic Rang [...] 02-14-2023 Potassium [Moles/Vol] 3.7 mmol/L Normal 3.5-5.1 [facility] Comment on above: Result Comment: PERF ORMED BY: [place] [address] PATHOLOGIST CODING MANAGER RAFA BYRNE M.D. Performed By: #### K #### [facility] [address] [place] [address] Potassium [Moles/Vol] 3.4 mmol/L Low 3.5-5.1 [facility] Comment on above: Result Comment: PERF ORMED BY: [place] [address] PATHOLOGIST CODING MANAGER RAFA BYRNE M.D. Performed By: #### K #### [facility] [address] [place] [address] Potassium [Moles/volume] in Serum or PlasmaOrdered By: Yakov To on 02-14-2023 Potassium [Moles/Vol] 3.7 mmol/L 3.5-5.1 [facility] Prothrombin Time INRon 02-14 INR Coag (PPP) [Relative time] 2.2 {INR} Normal [facility] Comment on above: Result Comment: INR [...] heart valves: 3 - 4.5 PERFORMED BY: [place] [address] PATHOLOGIST CODING MANAGER RAFA BYRNE M.D. Performed By: #### M G #### [facility] [address] PT Coag (PPP) [Time] 25.6 s High 9.0-12.9 [facility] Comment on above: Performed By: #### M G #### [facility] [address] [place] [address] Serum or plasma anion gap de terminationOrdered By: Yakov To on 02-14-2023 Anion gap [Moles/Vol] 13.4 mmol/L 6.0-15.0 [facility] Sodium [Moles/volume] in Ser um or PlasmaOrdered By: Yakov To on 02-14-2023 Sodium [Moles/Vol] 136 mmol/L 136-145 [facility] Comment on above: Delta: 129 on -1648 Urea nitrogen [Mass/volume] in Serum or PlasmaOrdered By: Yakov To on 02-14-2023 Urea nitrogen [Mass/Vol] 43 mg/dL 06-12 [facility] Activated partial thrombopla stin time (aPTT) in platelet poor plasma by coagulation aOrdered By: Angela Aden on 02-13-2023 aPTT Coag (PPP) [Time] 38.3 s 25.1-36.5 [facility] Alanine aminotransferase [En zymatic activity/volume] in Serum or PlasmaOrdered By: Angela Aden on 02-13-2023 ALT [Catalytic activity/Vol] 21 U/L [facility] Albumin [Mass/volume] in Ser um or Plasma by Bromocresol green (BCG) dye binding methoOrdered By: Angela Aden on 02-13-2023 Albumin BCG dye [Mass/Vol] 4.3 g/dL 3.5-5.7 [facility] Alkaline phosphatase [Enzyma tic activity/volume] in Serum or PlasmaOrdered By: Angela Aden on 02-13-2023 ALP [Catalytic activity/Vol] 98 U/L 34-104 [facility] Arterial Blood Gason 023 ABG Base Excess 5.2 mmol/L High -3.0-3.0 [facility] Comment on above: Performed By: #### M G #### [facility] [address] [place] [address] ABG Frac Inspired O2 21 % Normal [facility] Comment on above: Performed By: #### M G #### [facility] [address] [place] [address] ABG Oxygen Content 9.0 mmol/L Normal 6.6-9.7 [facility] Comment on above: Performed By: #### M G #### [facility] [address] [place] [address] ABG Oxygen Saturation 83.4 % Low 95.0-100.0 [facility] Comment on above: Performed By: #### M G #### [facility] [address] [place] [address] ABG PCO2 49.4 mm[Hg] High 35.0-45.0 [facility] Comment on above: Performed By: #### M G #### [facility] [address] [place] [address] ABG PH 7.42 Normal 7.35-7.45 [facility] Comment on above: Performed By: #### M G #### [facility] [address] [place] [address] ABG PO2 48.2 mm[Hg] Off scale low 80.0-100.0 [facility] Comment on above: Performed By: #### M G #### [facility] [address] [place] [address] [place] CO2 [Moles/Vol] 32.7 mmol/L High 23.0-27.0 [facility] Comment on above: Performed By: #### M G #### [facility] [address] [place] [address] [place] HCO3 (Bld) [Moles/Vol] 31.2 mmol/L High 23.0-29.0 [facility] Comment on above: Performed By: #### M G #### [facility] [address] [place] [address] Respiratory Critical Normal [facility] Comment on above: Result Comment: Crit ical Value called on: 02/13/2023 at 17:04 PERFORMED BY: [place] [address] PATHOLOGIST CODING MANAGER RAFA BYRNE M.D. Performed By: #### M G #### [facility] [address] [place] [address] VBG Draw Site Venous Normal [facility] Comment on above: Performed By: #### M G #### [facility] [address] [place] [address] Aspartate aminotransferase [ Enzymatic activity/volume] in Serum or PlasmaOrdered By: Angela Aden on 02-13-2023 AST [Catalytic activity/Vol] 32 U/L 13-39 [facility] Basophils Auto (Bld) [#/Vol] Ordered By: Angela Aden on 02-13-2023 Basophils (Bld) [#/Vol] 0.1 10*3/uL 0.0-0.2 [facility] Basophils/100 WBC Auto (Bld) Ordered By: Angela Aden on 02-13-2023 Basophils/100 WBC (Bld) 0.6 % . [facility] Beta Hydroxybuterateon 02-13 Beta Hydroxybuterate 0.10 mmol/L Normal 0.02-0.27 [facility] Comment on above: Result Comment: PERF ORMED BY: [address] [place] [address] PATHOLOGIST CODING MANAGER RAFA BYRNE M.D. Performed By: #### M G #### [facility] [address] [place], [place] [id number] [facility] Beta hydroxybutyrate [Moles/ volume] in Serum or PlasmaOrdered By: Angela Aden on 03-28-2023 Beta hydroxybutyrate [Moles/Vol] 0.10 mmol/L 0.02-0.27 [facility] Bilirubin Test strip Ql (U)O rdered By: Angela Aden on 02-13-2023 Bilirubin Ql (U) Negative Negative [facility] Bilirubin.total [Mass/volume ] in Serum or PlasmaOrdered By: Angela Aden on 02-13-2023 Bilirubin [Mass/Vol] 1.3 mg/dL 0.3-1.0 [facility] Comment on above: Samples from patient s who have taken Naproxen have shown spurious elevation in Total Bilirubin levels. A metabolite of Naproxen, O-desmethylnaproxen, has been shown to interfere with the Lazaro method for measuring Total Bilirubin. CT head/brain wo conon 02-13 CT head/brain wo con [facility] [place] [address] CT Scan Report Signed Patient: Adwoa Porter MR#: [id number] 7 : 1955 Acct:[id number] Age/Sex: 67 / M ADM Date: 02/13/23 Loc: ER Room: Type: [facility] ER Attending Dr: Copies to: Angela Aden [...] Archana Perez M.D.02/13/2023 5:28 PM Dictation Location: [place] [address] Transcribed By: [facility] 02/13/231727 Dictated By: Archana Perez MD 02/13/231722 Signed By: 02/13/23 172 Normal [facility] Calcium [Mass/volume] in Ser um or PlasmaOrdered By: Angela Aden on 02-13-2023 Calcium [Mass/Vol] 9.3 mg/dL 8.6-10.3 [facility] Carbon dioxide, total [Moles /volume] in Serum or PlasmaOrdered By: Angela Aden on 02-13-2023 CO2 [Moles/Vol] 31.6 mmol/L 21.0-31.0 [facility] Chloride [Moles/volume] in S mary or PlasmaOrdered By: Angela Aden on 02-13-2023 Chloride [Moles/Vol] 85 mmol/L 98-107 [facility] Color Auto (U)Ordered By: Miguel Aden on 02-13-2023 Color (U) Yellow Yellow [facility] Complete Blood Count Auto Di ffon 02-13-2023 Basophils (Bld) [#/Vol] 0.1 10*3/uL Normal 0.0-0.2 [facility] Comment on above: Result Comment: PERF ORMED BY: [place] [address] PATHOLOGIST CODING MANAGER RAFA BYRNE M.D. Performed By: #### M G #### [facility] [address] [place] [address] Basophils/100 WBC (Bld) 0.6 % Normal . [facility] Comment on above: Performed By: #### M G #### [facility] [address] Eosinophils (Bld) [#/Vol] 0.4 10*3/uL Normal 0.0-0.45 [facility] Comment on above: Performed By: #### M G #### [address] Eosinophils/100 WBC (Bld) 2.9 % Normal . [facility] Comment on above: Performed By: #### M G #### [address] Erythrocyte distribution width (RBC) [Ratio] 17.9 % High 12.0-14.8 [facility] Comment on above: Performed By: #### M G #### [address] Hematocrit (Bld) [Volume fraction] 48.8 % Normal 38.8-50.0 [facility] Comment on above: Performed By: #### M G #### [address] Hemoglobin (Bld) [Mass/Vol] 16.6 g/dL Normal 13.0-17.0 [facility] Comment on above: Performed By: #### M G #### [address] Lymphocytes (Bld) [#/Vol] 2.1 10*3/uL Normal 1.00-4.8 [facility] Comment on above: Performed By: #### M G #### [address] Lymphocytes/100 WBC (Bld) 17.7 % Normal . [facility] Comment on above: Performed By: #### M G #### [address] MCH (RBC) [Entitic mass] 29.0 pg Normal 27.5-35.2 [facility] Comment on above: Performed By: #### M G #### [address] MCV (RBC) [Entitic vol] 85.2 fL Normal 83.5-101 [facility] Comment on above: Performed By: #### M G #### [address] Mean Corpuscular HGB Conc 34.0 g/dL Normal 32.5-35.6 [facility] Comment on above: Performed By: #### M G #### [address] Monocytes (Bld) [#/Vol] 1.0 10*3/uL High 0.0-0.8 [facility] Comment on above: Performed By: #### M G #### [address] Monocytes/100 WBC (Bld) 19.79 % Normal 0.00-20.00 [facility] Comment on above: Performed By: #### M G #### [address] Monocytes/100 WBC (Bld) 8.0 % Normal . [facility] Comment on above: Performed By: #### M G #### [address] Neutrophils (Bld) [#/Vol] 8.5 10*3/uL High 1.8-7.7 [facility] Comment on above: Performed By: #### M G #### [address] Neutrophils/100 WBC (Bld) 70.8 % Normal . [facility] Comment on above: Performed By: #### M G #### [facility] [address] [place] [address] NRBC% 0.1 /100{WBC} Normal 0-0.5 [facility] Comment on above: Performed By: #### M G #### [address] Platelet mean volume (Bld) [Entitic vol] 8.6 fL Normal 6.6-10.1 [facility] Comment on above: Performed By: #### M G #### [address] Platelets (Bld) [#/Vol] 218 10*3/uL Normal 150-450 [facility] Comment on above: Performed By: #### M G #### [facility] [address] RBC (Bld) [#/Vol] 5.72 10*6/uL High 3.90-5.60 [facility] Comment on above: Performed By: #### M G #### [facility] [address] [place] [address] WBC (Bld) [#/Vol] 12.0 10*3/uL High 4.1-10.5 [facility] Comment on above: Performed By: #### M G #### [address] Comprehensive Metabolic Pane david 02-13-2023 Albumin [Mass/Vol] 4.3 g/dL Normal 3.5-5.7 [facility] Comment on above: Performed By: #### M G #### [address] Albumin/Globulin [Mass ratio] 1.2 {ratio} Normal [facility] Comment on above: Performed By: #### M G #### [facility] [address] [place] [address] ALP [Catalytic activity/Vol] 98 U/L Normal 34-104 [facility] Comment on above: Performed By: #### M G #### [facility] [address] [place] [address] ALT [Catalytic activity/Vol] 21 U/L Normal 7-52 [facility] Comment on above: Performed By: #### M G #### [facility] [address] [place] [address] Anion gap [Moles/Vol] 15.3 mmol/L High 6.0-15.0 [facility] Comment on above: Performed By: #### M G #### [facility] [address] [place] [address] AST [Catalytic activity/Vol] 32 U/L Normal 13-39 [facility] Comment on above: Performed By: #### M G #### [address] Bilirubin [Mass/Vol] 1.3 mg/dL High 0.3-1.0 [facility] Comment on above: Result Comment: Samp les from patients who have taken Naproxen have shown spurious elevation in Total Bilirubin levels. A metabolite of Naproxen, O-desmethylnaproxen, has been shown to interfere with the Jendrassik-Grof method for measuring Total Bilirubin. Performed By: #### M G #### [address] Calcium [Mass/Vol] 9.3 mg/dL Normal 8.6-10.3 [facility] Comment on above: Performed By: #### M G #### [address] Chloride [Moles/Vol] 85 mmol/L Low 98-107 [facility] Comment on above: Performed By: #### M G #### [address] CO2 [Moles/Vol] 31.6 mmol/L High 21.0-31.0 [facility] Comment on above: Performed By: #### M G #### [address] Creatinine [Mass/Vol] 2.06 mg/dL High 0.70-1.30 [facility] Comment on above: Performed By: #### M G #### [address] Creatinine Clr Calc Pharmacy 39.26 [facility] Comment on above: Performed By: #### M G #### [address] GFR/1.73 sq M.predicted MDRD (S/P/Bld) [Vol rate/Area] 34.441 mL/min/{1.73_m2} [facility] Comment on above: Performed By: #### M G #### [address] Globulin (S) [Mass/Vol] 3.6 g/dL Normal [facility] Comment on above: Performed By: #### M G #### [facility] [address] Glucose [Mass/Vol] 400 mg/dL High 70-100 [facility] Comment on above: Result Comment: [facility] Glucose Reference Range is dependent on time and content of last meal. Glucose of more than 200 mg/dL in a nonstressed, ambulatory subject supports the diagnosis of Diabetes Mellitus. ADA recommended reference range Performed By: #### M G #### [facility] [address] Potassium [Moles/Vol] 2.9 mmol/L Off scale low 3.5-5.1 [facility] Comment on above: Result Comment: Hemo lysis is present at a level that could interfere with the result. Performed By: #### M G #### [facility] [address] Protein [Mass/Vol] 7.9 g/dL Normal 6.4-8.9 [facility] Comment on above: Performed By: #### M G #### [facility] [address] [place] [address] [place] Sodium [Moles/Vol] 129 mmol/L Low 136-145 [facility] Comment on above: Performed By: #### M G #### [facility] [address] [place] [id number] [place] Urea nitrogen [Mass/Vol] 53 mg/dL High 7-25 [facility] Comment on above: Performed By: #### M G #### [facility] [address] [place] [address] [place] Creatinine [Mass/volume] in Serum or PlasmaOrdered By: Angela Aden on 02-13-2023 Creatinine [Mass/Vol] 2.06 mg/dL 0.70-1.30 [facility] ECG 12 lead ECGon 02-13-2023 ECG 12 lead ECG [facility] [address] [place] [address] [place] [address] Electrocardiograph Report Signed Patient: Adwoa Porter MR#: [id number] 7 : 1955 Acct:[id number] Age/Sex: 67 / M ADM Date: 02/13/23 Loc: Room: [address] [place] [address] Type: ADM IN Attending Dr: Yakov To [...] Bifascicular block Confirmed by Alejandro DUNCAN DO ([id number]) on 02/13/2023 10:10:19 PM Referred By: Electronically Signed By:Alejandro DUNCAN DO Transcribed By: MUS Signed By Alejandro Duncan DO 0 02/13/23 2210 Normal [facility] Eosinophils Auto (Bld) [#/Vo l]Ordered By: Angela Aden on 02-13-2023 Eosinophils (Bld) [#/Vol] 0.4 10*3/uL 0.0-0.45 [facility] Eosinophils/100 WBC Auto (Bl d)Ordered By: Angela Aden on 02-13-2023 Eosinophils/100 WBC (Bld) 2.9 % . [facility] Erythrocyte distribution wid th Auto (RBC) [Ratio]Ordered By: Angela Aden on 02-13-2023 Erythrocyte distribution width (RBC) [Ratio] 17.9 % 12.0-14.8 [facility] Globulin Calc (S) [Mass/Vol] Ordered By: Angela Aden on 02-13-2023 Globulin (S) [Mass/Vol] 3.6 g/dL [facility] Glucose Glucometer (BldC) [M ass/Vol]Ordered By: Yakov To on 02-13-2023 Glucose [Mass/Vol] 216 mg/dL [facility] Comment on above: Random Glucose Refer ence Range is dependent on time and content of last meal. Glucose of more than 200 mg/dL in a nonstressed, ambulatory subject supports the diagnosis of Diabetes Mellitus. Glucose Poct Glucometerson 0 02-13-2023 Glucose [Mass/Vol] 76 mg/dL Normal [facility] Comment on above: Result Comment: Galien om Glucose Reference Range is dependent on time and content of last meal. Glucose of more than 200 mg/dL in a nonstressed, ambulatory subject supports the diagnosis of Diabetes Mellitus. PERFORMED BY: [facility] [address] [place] [address] PATHOLOGIST CODING MANAGER RAFA BYRNE M.D. Performed By: #### G LULS #### Point of Care testing , Commemt1 Normal [facility] Comment on above: Result Comment: Glu2 : WILL NOTIFY DR/RN PERFORMED BY: [facility] [address] [place] [address] PATHOLOGIST CODING MANAGER RAFA BYRNE M.D. Performed By: #### G LULS #### Point of Care testing , Glucose [Mass/Vol] 560 mg/dL Off scale high [facility] Comment on above: Result Comment: Gal[place] om Glucose Reference Range is dependent on time and content of last meal. Glucose of more than 200 mg/dL in a nonstressed, ambulatory subject supports the diagnosis of Diabetes Mellitus. Performed By: #### G LULS #### Point of Care testing , Glucose [Mass/volume] in Ser um or PlasmaOrdered By: Angela Aden on 02-13-2023 Glucose [Mass/Vol] 400 mg/dL 70-100 [facility] Comment on above: ADA recommended refe rence rangeRandom Glucose Reference Range is dependent on time and content of last meal. Glucose of more than 200 mg/dL in a nonstressed, ambulatory subject supports the diagnosis of Diabetes Mellitus. Hematocrit Auto (Bld) [Volum e fraction]Ordered By: Angela Aden on 02-13-2023 Hematocrit (Bld) [Volume fraction] 48.8 % 38.8-50.0 [facility] Hemoglobin [Mass/volume] in BloodOrdered By: Angela Aden on 02-13-2023 Hemoglobin (Bld) [Mass/Vol] 16.6 g/dL 13.0-17.0 [facility] Ketones Auto test strip (U) [Mass/Vol]Ordered By: Angela Aden on 02-13-2023 Ketones (U) [Mass/Vol] Negative Negative [facility] Laboratory - Chemistry and C hemistry - challengeOrdered By: Angela Aden on 02-13-2023 CO2 [Moles/Vol] 32.7 mmol/L 23.0-27.0 [facility] HCO3 (Bld) [Moles/Vol] 31.2 mmol/L 23.0-29.0 [facility] GFR/1.73 sq M.predicted MDRD (S/P/Bld) [Vol rate/Area] 34.441 mL/min/{1.73_m2} [facility] Laboratory - CoagulationOrde red By: Angela Aden on 02-13-2023 PT Coag (PPP) [Time] 26.1 s 9.0-12.9 [facility] Leukocytes [#/volume] correc morris for nucleated erythrocytes in Blood by Automated counOrdered By: Angela Aden on 02-13-2023 WBC corrected for nucl RBC Auto (Bld) [#/Vol] 12.0 10*3/uL 4.1-10.5 [facility] Lymphocytes Auto (Bld) [#/Vo l]Ordered By: Angela Aden on 02-13-2023 Lymphocytes (Bld) [#/Vol] 2.1 10*3/uL 1.00-4.8 [facility] Lymphocytes/100 WBC Auto (Bl d)Ordered By: Angela Aden on 02-13-2023 Lymphocytes/100 WBC (Bld) 17.7 % . [facility] MCH Auto (RBC) [Entitic mass ]Ordered By: Angela Aden on 02-13-2023 MCH (RBC) [Entitic mass] 29.0 pg 27.5-35.2 [facility] MCHC Auto (RBC) [Mass/Vol]Or dered By: Angela Aden on 02-13-2023 MCHC (RBC) [Mass/Vol] 34.0 g/dL 32.5-35.6 [facility] MCV Auto (RBC) [Entitic vol] Ordered By: Angela Aden on 02-13-2023 MCV (RBC) [Entitic vol] 85.2 fL 83.5-101 [facility] Magnesiumon 02-13-2023 Magnesium [Mass/Vol] 2.5 mg/dL Normal 1.9-2.7 [facility] Comment on above: Order Comment: Comme nt add on if possible Result Comment: PERF ORMED BY: [place] [address] PATHOLOGIST CODING MANAGER RAFA BYRNE M.D. Performed By: #### M G #### [address] Magnesium [Mass/volume] in S mary or PlasmaOrdered By: Yakov To on 02-13-2023 Magnesium [Mass/Vol] 2.5 mg/dL 1.9-2.7 [facility] Monocyte distribution width [Entitic volume] in Blood by AutomatedOrdered By: Angela Aden on 02-13-2023 Monocyte distribution width Auto (Bld) [Entitic vol] 19.79 % 0.00-20.00 [facility] Monocytes Auto (Bld) [#/Vol] Ordered By: Angela Aden on 02-13-2023 Monocytes (Bld) [#/Vol] 1.0 10*3/uL 0.0-0.8 [facility] Monocytes/100 WBC Auto (Bld) Ordered By: Angela Aden on 02-13-2023 Monocytes/100 WBC (Bld) 8.0 % . [facility] Neutrophils Auto (Bld) [#/Vo l]Ordered By: Angela Aden on 02-13-2023 Neutrophils (Bld) [#/Vol] 8.5 10*3/uL 1.8-7.7 [facility] Neutrophils/100 WBC Auto (Bl d)Ordered By: Angela Aden on 02-13-2023 Neutrophils/100 WBC (Bld) 70.8 % . [facility] Nitrite Test strip Ql (U)Ord ered By: Angela Aden on 02-13-2023 Nitrite Ql (U) Negative Negative [facility] No Panel InformationOrdered By: Angela Adne on 02-13-2023 Arterial Blood Base Excess 5.2 mmol/L -3.0-3.0 [facility] Arterial Blood Oxygen Content 9.0 mmol/L 6.6-9.7 [facility] Arterial Blood Oxygen Saturation 83.4 % 95.0-100.0 [facility] Arterial Blood Partial Pressure CO2 49.4 mm[Hg] 35.0-45.0 [facility] Arterial Blood Partial Pressure O2 48.2 mm[Hg] 80.0-100.0 [facility] Arterial Blood pH 7.42 7.35-7.45 [facility] Blood Gas Critical Value See comment [facility] Comment on above: Critical Value rdz d on: 02/13/2023 at 17:04 Blood Gas Sample Site Venous [facility] FiO2 21 % [facility] Creatinine Clearance (Chem 39.26 [facility] Bedside Glucose Comment See comment [facility] Comment on above: Glu2: WILL NOTIFY DR /RN Nucleated erythrocytes [Pres ence] in Blood by Automated countOrdered By: Angela Aden on 02-13-2023 Nucleated RBC Auto Ql (Bld) 0.1 /100{WBC} 0-0.5 [facility] Partial Thromboplastin Timeo n 02-13-2023 aPTT Coag (Bld) [Time] 38.3 s High 25.1-36.5 [facility] Comment on above: Result Comment: PERF ORMED BY: [facility] [address] [place] [address] PATHOLOGIST CODING MANAGER RAFA BYRNE M.D. Performed By: #### M G #### [facility] [address] Platelet mean volume Auto (B ld) [Entitic vol]Ordered By: Angela Aden on 02-13-2023 Platelet mean volume (Bld) [Entitic vol] 8.6 fL 6.6-10.1 [facility] Platelet poor plasma interna tional normalized ratio (INR) by coagulation assay (relatOrdered By: Angela Aden on 02-13-2023 INR Coag (PPP) [Relative time] 2.3 {INR} [facility] Comment on above: INR Therapeutic Rang [...] 02-13-2023 Platelets (Bld) [#/Vol] 218 10*3/uL 150-450 [facility] Potassium [Moles/volume] in Serum or PlasmaOrdered By: Angela Aden on 02-13-2023 Potassium [Moles/Vol] 2.9 mmol/L 3.5-5.1 [facility] Comment on above: Hemolysis is present at a level that could interfere with the result. Protein Auto test strip (U) [Mass/Vol]Ordered By: Angela Aden on 02-13-2023 Protein (U) [Mass/Vol] Negative Negative [facility] Protein [Mass/volume] in Ser um or PlasmaOrdered By: Angela Aden on 02-13-2023 Protein [Mass/Vol] 7.9 g/dL 6.4-8.9 [facility] Prothrombin Time INRon 02-13 INR Coag (PPP) [Relative time] 2.3 {INR} Normal [facility] Comment on above: Result Comment: INR [...] By: #### M G #### [facility] [address] [place] [address] PT Coag (PPP) [Time] 26.1 s High 9.0-12.9 [facility] Comment on above: Performed By: #### M G #### [facility] [address] [place] [address] RBC Auto (Bld) [#/Vol]Ordere d By: Angela Aden on 02-13-2023 RBC (Bld) [#/Vol] 5.72 10*6/uL 3.90-5.60 [facility] Serum or plasma albumin/glob ulin mass ratioOrdered By: Angela Aden on 02-13-2023 Albumin/Globulin [Mass ratio] 1.2 {ratio} [facility] Serum or plasma anion gap de terminationOrdered By: Angela Aden on 02-13-2023 Anion gap [Moles/Vol] 15.3 mmol/L 6.0-15.0 [facility] Sodium [Moles/volume] in Ser um or PlasmaOrdered By: Angela Aden on 02-13-2023 Sodium [Moles/Vol] 129 mmol/L 136-145 [facility] Specific gravity Auto test s trip (U) [Rel density]Ordered By: Angela Aden on 02-13-2023 Specific gravity (U) [Rel density] 1.018 1.001-1.03 0 [facility] Troponin I High Sensitivityo n 02-13-2023 Troponin I High Sensitivity 69.4 pg/mL Off scale high 0.0-20.0 [facility] Comment on above: Result Comment: Crit ical Result : Called to and read back by: PROMISE VIEIRA at: 02/13/2023 18:35:16 by:[id number] PERFORMED BY: [place] [address] PATHOLOGIST CODING MANAGER RAFA BYRNE M.D. Performed By: #### M G #### [address] [place] [address] [place] Troponin I.cardiac [Mass/vol ume] in Serum or Plasma by Detection limit <= 0.01 ng/Ordered By: Angela Aden on 02-13-2023 Troponin I.cardiac DL <= 0.01 ng/mL [Mass/Vol] 69.4 pg/mL 0.0-20.0 [facility] Comment on above: Critical Result : Ca lled to and read back by: PROMISE VIEIRA at: 02/13/2023 18:35:16 by:[id number] Urea nitrogen [Mass/volume] in Serum or PlasmaOrdered By: Angela Aden on 02-13-2023 Urea nitrogen [Mass/Vol] 53 mg/dL 06-12 [facility] Urinalysison 02-13-2023 Appearance (U) Clear Normal Clear [facility] Comment on above: Order Comment: Name Collection Type:: Clean-Voided Midstream Performed By: #### U A #### [facility] [address] [place] [address] [place] Bilirubin,Urine Negative Normal Negative [facility] Comment on above: Order Comment: Name Collection Type:: Clean-Voided Midstream Performed By: #### U A #### [facility] [address] [place] [address] [place] Color (U) Yellow Normal Yellow [facility] Comment on above: Order Comment: Name Collection Type:: Clean-Voided Midstream Performed By: #### U A #### [facility] [address] [place] [address] [place] Glucose Ql (U) >=1000 High Normal [facility] Comment on above: Order Comment: Name Collection Type:: Clean-Voided Midstream Performed By: #### U A #### [facility] [address] [place] [address] [place] Ketones Ql (U) Negative Normal Negative [facility] Comment on above: Order Comment: Name Collection Type:: Clean-Voided Midstream Performed By: #### U A #### [facility] [address] [place] [address] [place] Leukocyte esterase Test strip Ql (U) Negative Normal Negative [facility] Comment on above: Order Comment: Name Collection Type:: Clean-Voided Midstream Performed By: #### U A #### [facility] [address] [place] [address] [place] Nitrite,Urine Negative Normal Negative [facility] Comment on above: Order Comment: Name Collection Type:: Clean-Voided Midstream Performed By: #### U A #### [address] Occult Blood,Urine Negative Normal Negative [facility] Comment on above: Order Comment: Name Collection Type:: Clean-Voided Midstream Result Comment: PERF ORMED BY: [place] [address] PATHOLOGIST CODING MANAGER RAFA BYRNE M.D. Performed By: #### U A #### [address] pH (U) 6.0 [pH] Normal 5.0-9.0 [facility] Comment on above: Order Comment: Name Collection Type:: Clean-Voided Midstream Performed By: #### U A #### [place] [address] [place] Protein,Urine Negative Normal Negative [facility] Comment on above: Order Comment: Name Collection Type:: Clean-Voided Midstream Performed By: #### U A #### [facility] [address] [place] [address] [place] Specificy [place],Urine 1.018 Normal 1.001-1.03 0 [facility] Comment on above: Order Comment: Name Collection Type:: Clean-Voided Midstream Performed By: #### U A #### [facility] [address] [place] [address] [place] Urobilinogen,Urine Normal Normal Normal [facility] Comment on above: Order Comment: Name Collection Type:: Clean-Voided Midstream Performed By: #### U A #### [place] [address] [place] Urine clarity by refractomet ry automatedOrdered By: Angela Aden on 02-13-2023 Clarity Refractometry automated (U) Clear Clear [facility] Urine glucose measurement by automated test strip (mass/volume)Ordered By: Angela Aden on 02-13-2023 Glucose Auto test strip (U) [Mass/Vol] >=1000 mg/dL Normal [facility] Urine hemoglobin detection b y automated test stripOrdered By: Angela Aden on 02-13-2023 Hemoglobin Auto test strip Ql (U) Negative Negative [facility] Urine leukocyte esterase det ection by automated test stripOrdered By: Angela Aden on 02-13-2023 Leukocyte esterase Auto test strip Ql (U) Negative Negative [facility] Urobilinogen Auto test strip (U) [Mass/Vol]Ordered By: Angela Aden on 02-13-2023 Urobilinogen (U) [Mass/Vol] Normal mg/dL Normal [facility] WBC Auto (Bld) [#/Vol]Ordere d By: Angela Aden on 02-13-2023 WBC (Bld) [#/Vol] 12.0 10*3/uL 4.1-10.5 [facility] XR chest 2V*on 02-13-2023 XR chest 2V* [facility] [place] [address] XRay Report Signed Patient: Adwoa Porter MR#: [id number] 7 : 1955 Acct:[id number] Age/Sex: 67 / M ADM Date: 02/13/23 Loc: ER Room: Type: [facility] ER Attending Dr: Copies to: Angela Aden [...] Archana Perez M.D.02/13/2023 5:39 PM Dictation Location: [place] [address] Transcribed By: [facility] 02/13/231738 Dictated By: Archana Perez MD 02/13/231734 Signed By: 02/13/231738 Normal [facility] pH Auto test strip (U)Ordere d By: Angela Aden on 02-13-2023 pH (U) 6.0 [pH] 5.0-9.0 [facility] BNPon 01-29-2023 Natriuretic peptide B (Bld) [Mass/Vol] 6099.0 pg/mL Critically high <=900.0 [facility] Comment on above: Performed By: #### C MP, BNP ####[facility] [address] [place], [place] [address]Dr. Emelina Navarro CBC AUTO DIFFon 01-29-2023 BASO # 0.1 103/ul Normal 0.0-0.1 [facility] Comment on above: Performed By: #### C BC ####[facility] [address] [place], [place] [address]Dr. Emelina Navarro Basophils/100 WBC (Bld) 0.3 % Normal 0.2-2.0 [facility] Comment on above: Performed By: #### C BC ####[facility] [address] [place], [place] [address]Dr. Emelina Navarro EO # 0.3 103/ul Normal 0.0-0.7 [facility] Comment on above: Performed By: #### C BC ####[facility] [address] [place], [place] [address]Dr. Emelina Navarro Eosinophils/100 WBC (Bld) 1.9 % Normal 0.9-7.0 [facility] Comment on above: Performed By: #### C BC ####[facility] [address] [place], [place] [address]Dr. Emelina Navarro Erythrocyte distribution width (RBC) [Ratio] 18.5 % Critically high 11.0-15.0 [facility] Comment on above: Performed By: #### C BC ####[facility] [address] [place] [address]Dr. Emelina Navarro Hematocrit (Bld) [Volume fraction] 49.7 % Normal 42.0-54.0 [facility] Comment on above: Performed By: #### C BC ####[facility] [address] [place], [place] [address]Dr. Emelina Navarro Hemoglobin (Bld) [Mass/Vol] 16.3 g/dL Normal 14.0-18.0 [facility] Comment on above: Performed By: #### C BC ####[facility] [address] [place], [place] [address]Dr. Awildanitza Navarro IG # 0.07 10e3/ul Critically high 0.00-0.03 [facility] Comment on above: Performed By: #### C BC ####[facility] [address] [place], [place] [address]Dr. Emelina Navarro IG % 0.4 % Normal 0.0-0.5 [facility] Comment on above: Performed By: #### C BC ####[facility] [address] [place], [place] [address]Dr. Emelina Ramon LYMPH # 2.6 103/ul Normal 1.2-3.8 [facility] Comment on above: Performed By: #### C BC ####[facility] [address] [place], [place] [address]Dr. Emelina Ramon Lymphocytes/100 WBC (Bld) 16.9 % Critically low 20.5-60.0 [facility] Comment on above: Performed By: #### C BC ####[facility] [address] [place], [place] [address]Dr. Emelina Ramon MANUAL DIFF REQ NO Normal [facility] Comment on above: Performed By: #### C BC ####[facility] [address] [place], [place] [address]Dr. Emelina Navarro MCH (RBC) [Entitic mass] 28.4 pg Normal 25.9-34.0 [facility] Comment on above: Performed By: #### C BC ####[facility] [address] [place], [place] [address]Dr. Emelina Navarro MCHC (RBC) [Mass/Vol] 32.8 g/dL Normal 29.9-35.2 [facility] Comment on above: Performed By: #### C BC ####[facility] [address] [place], [place] [address]Dr. Awildanitza Navarro MCV (RBC) [Entitic vol] 86.6 fL Normal 80.0-94.0 [facility] Comment on above: Performed By: #### C BC ####[facility] [address] [place], [place] [address]Dr. Emelina Navarro MONO # 1.2 103/ul Critically high 0.3-0.8 [facility] Comment on above: Performed By: #### C BC ####[facility] [address] [place], [place] [address]Dr. Emelina Navarro Monocytes/100 WBC (Bld) 7.7 % Normal 1.7-12.0 [facility] Comment on above: Performed By: #### C BC ####[facility] [address] [place], [place] [address]Dr. Awildanitza Ramon NEUT # 11.4 103/ul Critically high 1.4-6.5 [facility] Comment on above: Performed By: #### C BC ####[facility] [address] [place], [place] [address]Dr. Emelina Navarro Neutrophils/100 WBC (Bld) 72.8 % Normal 43.0-75.0 [facility] Comment on above: Performed By: #### C BC ####[facility] [address] [place], [place] [address]Dr. Emelina Navarro Platelet mean volume (Bld) [Entitic vol] 9.8 fL Normal 9.5-13.5 [facility] Comment on above: Performed By: #### C BC ####[facility] [address] [place], [place] [address]Pv. Emelina Navarro PLT 200 103/ul Normal 150-450 [facility] Comment on above: Performed By: #### C BC ####[facility] [address] [place], [place] [address]Em. Emelina Navarro RBC 5.74 106/ul Normal 4.70-6.10 [facility] Comment on above: Performed By: #### C BC ####[facility] [address] [place] [id number]. Emelina Navarro WBC 15.6 103/ul Critically high 4.0-11.0 [facility] Comment on above: Performed By: #### C BC ####[facility] [address] [place] [id number]. Emelina Navarro DIGOXINon 01-29-2023 DIG 1.1 ng/mL Normal 0.9-2.0 [facility] Comment on above: Performed By: #### D IG ####[facility] [address] [place] [id number]. Emelina Navarro Office Visiton 01-29-2023 Follow-up visit [id number] Adwoa Porter 1955 M Date Provider Department Center 01/29/2023 SUSHIL CAO [facility] Family History Problem Relation Age of Onset Diabetes Mother Hypertension Mother Coronary artery disease Mother Family Status - Relation Status Age at Mother Level of Service:[address] [place] OFFICE/OUTPATIENT ESTABLISHED MOD MDM 30-39 MIN Reason for Visit and Comments: Atrial Fibrillation [80] Coronary Artery Disease [187] Congestive Heart Failure [127] Normal [facility] PROF 14(COMP METB)on 023 Albumin [Mass/Vol] 3.8 g/dL Normal 3.4-5.0 [facility] Comment on above: Performed By: #### C MP, BNP ####[facility] [address] [place] [id number]. Emelina Navarro Albumin/Globulin [Mass ratio] 0.9 {ratio} Normal [facility] Comment on above: Performed By: #### C MP, BNP ####[facility] [address] [place] [id number]. Emelina Navarro ALP [Catalytic activity/Vol] 126 U/L Critically high 46-116 [facility] Comment on above: Performed By: #### C MP, BNP ####[facility] [address] [place] [id number]. Emelina Navarro ALT [Catalytic activity/Vol] 29 U/L Normal 16-63 [facility] Comment on above: Performed By: #### C MP, BNP ####[facility] [address] [place] [address]Dr. Emelina Navarro Anion gap [Moles/Vol] 12.2 mmol/L Normal [facility] Comment on above: Performed By: #### C MP, BNP ####[facility] [address] [place] [address]Dr. Emelina Navarro AST [Catalytic activity/Vol] 28 U/L Normal 15-37 [facility] Comment on above: Performed By: #### C MP, BNP ####[facility] [address] [place] [address]Dr. Emelina Navarro Bilirubin [Mass/Vol] 1.8 mg/dL Critically high 0.2-1.0 [facility] Comment on above: Performed By: #### C MP, BNP ####[facility] [address] [place] [address]Dr. Emelina Navarro Calcium [Mass/Vol] 9.9 mg/dL Normal 8.5-10.1 [facility] Comment on above: Performed By: #### C MP, BNP ####[facility] [address] [place] [address]Dr. Emelina Navarro Chloride [Moles/Vol] 96 mmol/L Critically low 98-107 [facility] Comment on above: Performed By: #### C MP, BNP ####[facility] [address] [place], [place] [address]Dr. Emelina Navarro CO2 [Moles/Vol] 33.6 mmol/L Critically high 21.0-32.0 [facility] Comment on above: Performed By: #### C MP, BNP ####[facility] [address] [place] [address]Dr. Emelina Navarro Creatinine [Mass/Vol] 1.66 mg/dL Critically high 0.70-1.30 [facility] Comment on above: Performed By: #### C MP, BNP ####[facility] [address] [place] [address]Dr. Emelina Navarro EGFR-AF SURINAMESE 50 mL/min/1.73m2 Critically low >=60 [facility] Comment on above: Performed By: #### C MP, BNP ####[facility] [address] [place] [address]Dr. Emelina Navarro EGFR-NON AF SURINAMESE 41 mL/min/1.73m2 Critically low >=60 [facility] Comment on above: Performed By: #### C MP, BNP ####[facility] [address]qfndpxj[address] [place], [place] [address]Dr. Emelina Ramon Globulin (S) [Mass/Vol] 4.3 g/dL Normal [facility] Comment on above: Performed By: #### C MP, BNP ####[facility] [address]posrpu[address] [place], [place] [address]Dr. Emelina Navarro Glucose [Mass/Vol] 218 mg/dL Critically high 74-106 [facility] Comment on above: Performed By: #### C MP, BNP ####[facility] [address]ocb[address] [place], [place] [address]Dr. Emelina Ramon Potassium [Moles/Vol] 4.8 mmol/L Normal 3.5-5.1 [facility] Comment on above: Performed By: #### C MP, BNP ####[facility] Uqyltainik[address] [place], [place] [address]Dr. Emelina Ramon Protein [Mass/Vol] 8.1 g/dL Normal 6.4-8.2 [facility] Comment on above: Performed By: #### C MP, BNP ####[facility] [address] [place], [place] [address]Dr. Emelina Navarro Sodium [Moles/Vol] 137 mmol/L Normal 136-145 [facility] Comment on above: Performed By: #### C MP, BNP ####[facility] [address] [place] [id number]. Emelina Navarro Urea nitrogen [Mass/Vol] 31.0 mg/dL Critically high 7.0-18.0 [facility] Comment on above: Performed By: #### C MP, BNP ####[facility] [address]df[address] [place] [id number]. Emelina Ramon Urea nitrogen/Creatinine [Mass ratio] 18.7 mg/mg Normal [facility] Comment on above: Performed By: #### C MP, BNP ####[facility] Xnrveyguxr[address] [place] [address]Dr. Emelina Navarro 36on 01-15-2023 36 Patient called stati ng he was pissing himself to and he has lost weight s/p [facility] admission for CHF. Says he is skinny and has ankles again. He states he's currently taking 80mg of lasix bid. He wanted to know if he should cut back on the lasix due to kidney function. I advised to cut the PM dose of lasix in half, but did tell him if he got SOB and LE edema again that he should return to baseline dose. He is scheduled to see Dr. Stout in 2 weeks on 01/29. Any further recommendations? Please advise. Thanks! Normal [facility] BNPon 01-11-2023 Natriuretic peptide B (Bld) [Mass/Vol] 6024.0 pg/mL Critically high <=900.0 [facility] Comment on above: Performed By: #### B STRAIGHT PIN MAKING MACHINE OPERATOR, CMP ####[facility] [address]lc[address] [place] [id number]. Emelina Ramon CBC AUTO DIFFon 01-11-2023 BASO # 0.0 103/ul Normal 0.0-0.1 [facility] Comment on above: Performed By: #### C BC ####[facility] [address]accw[address] [place] [id number]. Awildanitza Navarro Basophils/100 WBC (Bld) 0.3 % Normal 0.2-2.0 [facility] Comment on above: Performed By: #### C BC ####[facility] Zqjwntikjf[address] [place] [address]Dr. Emelina Navarro EO # 0.4 103/ul Normal 0.0-0.7 [facility] Comment on above: Performed By: #### C BC ####[facility] Ekjfcotiaa[address] [place] [address]Dr. Emelina Ramon Eosinophils/100 WBC (Bld) 3.3 % Normal 0.9-7.0 [facility] Comment on above: Performed By: #### C BC ####[facility] F[address]upnvecb[address] [place] [address]Dr. Awildanitza Navarro Erythrocyte distribution width (RBC) [Ratio] 16.7 % Critically high 11.0-15.0 [facility] Comment on above: Performed By: #### C BC ####[facility] Leiiuznmjd[address] [place], [place] [address]Dr. Awildanitza Navarro Hematocrit (Bld) [Volume fraction] 41.5 % Critically low 42.0-54.0 [facility] Comment on above: Performed By: #### C BC ####[facility] [address]zfykxze[address] [place], [place] [address]Dr. Emelina Navarro Hemoglobin (Bld) [Mass/Vol] 13.8 g/dL Critically low 14.0-18.0 [facility] Comment on above: Performed By: #### C BC ####[facility] [address]szctokzwp[address] [place], [place] [address]Dr. Awildanitza Navarro IG # 0.04 10e3/ul Critically high 0.00-0.03 [facility] Comment on above: Performed By: #### C BC ####[facility] Bqsejjnomx13[address] [place], [place] [address]Dr. Awildanitza Navarro IG % 0.3 % Normal 0.0-0.5 [facility] Comment on above: Performed By: #### C BC ####[facility] Dqobmfqglb[address] [place], [place] [address]DrWesley Navarro LYMPH # 1.8 103/ul Normal 1.2-3.8 [facility] Comment on above: Performed By: #### C BC ####[facility] Meomucgzsb[address] [place] [address]Dr. Emelina Navarro Lymphocytes/100 WBC (Bld) 15.1 % Critically low 20.5-60.0 [facility] Comment on above: Performed By: #### C BC ####[facility] Cxsmhqqbpl[address] [place] [address]Dr. Emelina Navarro MANUAL DIFF REQ NO Normal [facility] Comment on above: Performed By: #### C BC ####[facility] Tokzbitsef[address] [place] [address]Dr. Emelina Navarro MCH (RBC) [Entitic mass] 29.0 pg Normal 25.9-34.0 [facility] Comment on above: Performed By: #### C BC ####[facility] Pvkelfrdgx7[address] [place], [place] [address]Dr. Emelina Navarro MCHC (RBC) [Mass/Vol] 33.3 g/dL Normal 29.9-35.2 [facility] Comment on above: Performed By: #### C BC ####[facility] Ukbgtngnua24[address] [place], [place] [address]Dr. Emelina Navarro MCV (RBC) [Entitic vol] 87.2 fL Normal 80.0-94.0 [facility] Comment on above: Performed By: #### C BC ####[facility] Xrvssuijmu16[address] [place] [address]Dr. Emelina Navarro MONO # 0.7 103/ul Normal 0.3-0.8 [facility] Comment on above: Performed By: #### C BC ####[facility] Gyytynmwgd[address] [place], [place] [address]Dr. Emelina Navarro Monocytes/100 WBC (Bld) 5.9 % Normal 1.7-12.0 [facility] Comment on above: Performed By: #### C BC ####[facility] Obdqwbdkvj25[address] [place], [place] [address]DrWesley Navarro NEUT # 8.9 103/ul Critically high 1.4-6.5 [facility] Comment on above: Performed By: #### C BC ####[facility] Xtiqwdohbe[address] [place] [id number]. Emelina Navarro Neutrophils/100 WBC (Bld) 75.1 % Critically high 43.0-75.0 [facility] Comment on above: Performed By: #### C BC ####[facility] Jwyfvtwohh9672 [place] [phone]. Emelina Navarro Platelet mean volume (Bld) [Entitic vol] 11.7 fL Normal 9.5-13.5 [facility] Comment on above: Performed By: #### C BC ####[facility] Owdjetniih38[address] [place] [address]Dr. Emelina Navarro PLT 124 103/ul Critically low 150-450 [facility] Comment on above: Performed By: #### C BC ####[facility] Pprzjzlwag[address] [place] [address]Dr. Emelina Navarro RBC 4.76 106/ul Normal 4.70-6.10 [facility] Comment on above: Performed By: #### C BC ####[facility] Ukzjyuqmrv[address] [place], [place] [address]Dr. Emelina Navarro WBC 11.8 103/ul Critically high 4.0-11.0 [facility] Comment on above: Performed By: #### C BC ####[facility] Y[address]qlhfnhr5[address] [place] [id number]. Emelina Navarro POINT OF CARE GLUCOSEon 12-21 Glucose [Mass/Vol] 339 mg/dL Critically high 74-106 [facility] Comment on above: Performed By: #### P OCGLUC ####[facility] Lvkttdcebs65[address] [place], [place] [address]Dr. Emelina Navarro PROF 14(COMP METB)on 023 Albumin [Mass/Vol] 3.3 g/dL Critically low 3.4-5.0 [facility] Comment on above: Performed By: #### B STRAIGHT PIN MAKING MACHINE OPERATOR, CMP ####[facility] Dceroeuyad[address] [place] [address]Dr. Emelina Navarro Albumin/Globulin [Mass ratio] 0.8 {ratio} Normal [facility] Comment on above: Performed By: #### B STRAIGHT PIN MAKING MACHINE OPERATOR, CMP ####[facility] [address]tzhebytwv[address] [place] [address]Dr. Emelina Navarro ALP [Catalytic activity/Vol] 163 U/L Critically high 46-116 [facility] Comment on above: Performed By: #### B STRAIGHT PIN MAKING MACHINE OPERATOR, CMP ####[facility] Cedfwmqhus[address] [place], [place] [address]Dr. Emelina Navarro ALT [Catalytic activity/Vol] 27 U/L Normal 16-63 [facility] Comment on above: Performed By: #### B STRAIGHT PIN MAKING MACHINE OPERATOR, CMP ####[facility] Irzqtfpvcd25[address] [place], [place] [address]Dr. Awildanitza Ramon Anion gap [Moles/Vol] 10.5 mmol/L Normal [facility] Comment on above: Performed By: #### B STRAIGHT PIN MAKING MACHINE OPERATOR, CMP ####[facility] Wesesigrdy[address] [place], [place] [address]Dr. Emelina Navarro AST [Catalytic activity/Vol] 28 U/L Normal 15-37 [facility] Comment on above: Performed By: #### B STRAIGHT PIN MAKING MACHINE OPERATOR, CMP ####[facility] Hakvnvifuw[address] [place], [place] [address]Dr. Awildanitza Ramon Bilirubin [Mass/Vol] 1.3 mg/dL Critically high 0.2-1.0 [facility] Comment on above: Performed By: #### B STRAIGHT PIN MAKING MACHINE OPERATOR, CMP ####[facility] Bqbhilmlgv3032[address] [place], [place] [address]Dr. Emelina Navarro Calcium [Mass/Vol] 9.0 mg/dL Normal 8.5-10.1 [facility] Comment on above: Performed By: #### B STRAIGHT PIN MAKING MACHINE OPERATOR, CMP ####[facility] Elcyihxwct85[address] [place], [place] [address]Dr. Emelina Navarro Chloride [Moles/Vol] 91 mmol/L Critically low 98-107 [facility] Comment on above: Performed By: #### B STRAIGHT PIN MAKING MACHINE OPERATOR, CMP ####[facility] Fxaekypzpa[address] [place] [address]Dr. Emelina Navarro CO2 [Moles/Vol] 32.9 mmol/L Critically high 21.0-32.0 [facility] Comment on above: Performed By: #### B STRAIGHT PIN MAKING MACHINE OPERATOR, CMP ####[facility] Laywnnpcit[address] [place], [place] [address]Dr. Emelina Navarro Creatinine [Mass/Vol] 1.84 mg/dL Critically high 0.70-1.30 [facility] Comment on above: Performed By: #### B STRAIGHT PIN MAKING MACHINE OPERATOR, CMP ####[facility] Fskhlmulax46[address] [place], [place] [address]Dr. Emelina Navarro EGFR-AF SURINAMESE 45 mL/min/1.73m2 Critically low >=60 [facility] Comment on above: Performed By: #### B STRAIGHT PIN MAKING MACHINE OPERATOR, CMP ####[facility] Fnchyjlsvy[address] [place], [place] [address]Dr. Emelina Navarro EGFR-NON AF SURINAMESE 37 mL/min/1.73m2 Critically low >=60 [facility] Comment on above: Performed By: #### B STRAIGHT PIN MAKING MACHINE OPERATOR, CMP ####[facility] Vavcagosnk5[address] [place], [place] [address]Dr. Emelina Navarro Globulin (S) [Mass/Vol] 4.3 g/dL Normal [facility] Comment on above: Performed By: #### B STRAIGHT PIN MAKING MACHINE OPERATOR, CMP ####[facility] Hyhurzfewr3[address] [place], [place] [address]Dr. Emelina Navarro Glucose [Mass/Vol] 305 mg/dL Critically high 74-106 [facility] Comment on above: Performed By: #### B STRAIGHT PIN MAKING MACHINE OPERATOR, CMP ####[facility] Xtlojgjzgu0364[address] [place], [place] [address]Dr. Emelina Navarro Potassium [Moles/Vol] 3.4 mmol/L Critically low 3.5-5.1 [facility] Comment on above: Performed By: #### B STRAIGHT PIN MAKING MACHINE OPERATOR, CMP ####[facility] Dxsisiwmdh2776[address] [place], [place] [address]Dr. Emelina Navarro Protein [Mass/Vol] 7.6 g/dL Normal 6.4-8.2 [facility] Comment on above: Performed By: #### B STRAIGHT PIN MAKING MACHINE OPERATOR, CMP ####[facility] Oazdzenxfs55[address] [place], [place] [address]Dr. Emelina Navarro Sodium [Moles/Vol] 131 mmol/L Critically low 136-145 [facility] Comment on above: Performed By: #### B STRAIGHT PIN MAKING MACHINE OPERATOR, CMP ####[facility] Hlpphjhagj[address] [place], [place] [address]Dr. Emelina Navarro Urea nitrogen [Mass/Vol] 62.0 mg/dL Critically high 7.0-18.0 [facility] Comment on above: Performed By: #### B STRAIGHT PIN MAKING MACHINE OPERATOR, CMP ####[facility] Kkkiebtayw98[address] [place], [place] [address]Dr. Emelina Navarro Urea nitrogen/Creatinine [Mass ratio] 33.7 mg/mg Normal [facility] Comment on above: Performed By: #### B STRAIGHT PIN MAKING MACHINE OPERATOR, CMP ####[facility] Wgkaepirpx5586[address] [place], [place] [address]Dr. Emelina Ramon BNPon 01-10-2023 Natriuretic peptide B (Bld) [Mass/Vol] 8763.0 pg/mL Critically high <=900.0 [facility] Comment on above: Performed By: #### C MP, BNP ####[facility] Qcezwyfglf8[address] [place], [place] [address]Dr. Awildanitza Ramon CBC AUTO DIFFon 01-10-2023 BASO # 0.0 103/ul Normal 0.0-0.1 [facility] Comment on above: Performed By: #### C BC ####[facility] Awwfeoollq9269[address] [place], [place] [address]Dr. Emelina Navarro Basophils/100 WBC (Bld) 0.4 % Normal 0.2-2.0 [facility] Comment on above: Performed By: #### C BC ####[facility] Fkwpjogrxj[address] [place], [place] [address]Dr. Emelina Navarro EO # 0.3 103/ul Normal 0.0-0.7 [facility] Comment on above: Performed By: #### C BC ####[facility] Fhofdrllzc3064[address] [place], [place] [address]Dr. Emelina Navarro Eosinophils/100 WBC (Bld) 2.8 % Normal 0.9-7.0 [facility] Comment on above: Performed By: #### C BC ####[facility] Bpydtizxou[address] [place] [address]Dr. Emelina Navarro Erythrocyte distribution width (RBC) [Ratio] 17.2 % Critically high 11.0-15.0 [facility] Comment on above: Performed By: #### C BC ####[facility] Yfpgrzrcrw95[address] [place], [place] [address]Dr. Emelina Navarro Hematocrit (Bld) [Volume fraction] 42.1 % Normal 42.0-54.0 [facility] Comment on above: Performed By: #### C BC ####[facility] Yasvjcbfjd7256[address] [place], [place] [address]Dr. Emelina Navarro Hemoglobin (Bld) [Mass/Vol] 13.3 g/dL Critically low 14.0-18.0 [facility] Comment on above: Performed By: #### C BC ####[facility] Ubeoyfahcs[address] [place], [place] [address]Dr. Emelina Navarro IG # 0.05 10e3/ul Critically high 0.00-0.03 [facility] Comment on above: Performed By: #### C BC ####[facility] Kvsajnuymn1575[address] [place], [place] [address]Dr. Emelina Navarro IG % 0.4 % Normal 0.0-0.5 [facility] Comment on above: Performed By: #### C BC ####[facility] Rbpsqmgelk4125[address] [place], [place] [address]Dr. Emelina Navarro LYMPH # 1.7 103/ul Normal 1.2-3.8 [facility] Comment on above: Performed By: #### C BC ####[facility] Ujogjpuphx9459[address] [place], [place] [address]Dr. Emelina Navarro Lymphocytes/100 WBC (Bld) 14.8 % Critically low 20.5-60.0 [facility] Comment on above: Performed By: #### C BC ####[facility] Shwdoyoiqf[address] [place] [address]Dr. Emelina Navarro MANUAL DIFF REQ NO Normal [facility] Comment on above: Performed By: #### C BC ####[facility] Epsjgjvcge07[address] [place] [address]Dr. Emelina Navarro MCH (RBC) [Entitic mass] 28.4 pg Normal 25.9-34.0 [facility] Comment on above: Performed By: #### C BC ####[facility] Qspoprgawp8466[address] [place], [place] [address]Dr. Emelina Navarro MCHC (RBC) [Mass/Vol] 31.6 g/dL Normal 29.9-35.2 [facility] Comment on above: Performed By: #### C BC ####[facility] Pajyoavuhk[address] [place], [place] [address]Dr. Emelina Ramon MCV (RBC) [Entitic vol] 89.8 fL Normal 80.0-94.0 [facility] Comment on above: Performed By: #### C BC ####[facility] Osloccgols[address] [place], [place] [address]Dr. Emelina Ramon MONO # 0.9 103/ul Critically high 0.3-0.8 [facility] Comment on above: Performed By: #### C BC ####[facility] Ogxsglbgbo[address] [place], [place] [address]Dr. Awildanitza Navarro Monocytes/100 WBC (Bld) 7.6 % Normal 1.7-12.0 [facility] Comment on above: Performed By: #### C BC ####[facility] Cbgjggbtys8[address] [place] [address]Dr. Emelina Ramon NEUT # 8.4 103/ul Critically high 1.4-6.5 [facility] Comment on above: Performed By: #### C BC ####[facility] Yzgspdnlry13[address] [place], [place] [address]Dr. Emelina Ramon Neutrophils/100 WBC (Bld) 74.0 % Normal 43.0-75.0 [facility] Comment on above: Performed By: #### C BC ####[facility] Hytvyurrhp96[address] [place] [address]Dr. Emelina Navarro Platelet mean volume (Bld) [Entitic vol] 11.1 fL Normal 9.5-13.5 [facility] Comment on above: Performed By: #### C BC ####[facility] Vhwmypmsdz39[address] [place] [address]Dr. Emelina Navarro PLT 111 103/ul Critically low 150-450 [facility] Comment on above: Performed By: #### C BC ####[facility] Vosxglbhbc11[address] [place] [address]Dr. Emelina Navarro RBC 4.69 106/ul Critically low 4.70-6.10 [facility] Comment on above: Performed By: #### C BC ####[facility] Dsxzszqhyc[address] [place], [place] [address]Dr. Emelina Navarro WBC 11.4 103/ul Critically high 4.0-11.0 [facility] Comment on above: Performed By: #### C BC ####[facility] Dmpjjmveio225[address] [place] [address]Dr. Emelina Navarro PROF 14(COMP METB)on 023 Albumin [Mass/Vol] 3.3 g/dL Critically low 3.4-5.0 [facility] Comment on above: Performed By: #### C MP, BNP ####[facility] Kwvlyrwwpb4[address] [place], [place] [address]Dr. Emelina Navarro Albumin/Globulin [Mass ratio] 0.8 {ratio} Normal [facility] Comment on above: Performed By: #### C MP, BNP ####[facility] Gbmclkeyai4[address] [place] [address]Dr. Emelina Navarro ALP [Catalytic activity/Vol] 165 U/L Critically high 46-116 [facility] Comment on above: Performed By: #### C MP, BNP ####[facility] Mzbxlphwji[address] [place], [place] [address]Dr. Emelina Navarro ALT [Catalytic activity/Vol] 27 U/L Normal 16-63 [facility] Comment on above: Performed By: #### C MP, BNP ####[facility] Gdbnydlsek2875 [place] [address]Dr. Emelina Navarro Anion gap [Moles/Vol] 9.5 mmol/L Normal [facility] Comment on above: Performed By: #### C MP, BNP ####[facility] Abpfihqoxj37[address] [place], [place] [address]Dr. Emelina Navarro AST [Catalytic activity/Vol] 24 U/L Normal 15-37 [facility] Comment on above: Performed By: #### C MP, BNP ####[facility] Pwioqpkoif56[address] [place], [place] [address]Dr. Emelina Navarro Bilirubin [Mass/Vol] 1.3 mg/dL Critically high 0.2-1.0 [facility] Comment on above: Performed By: #### C MP, BNP ####[facility] Pyrxsmbvlg[address] [place], [place] [address]Dr. Emelina Navarro Calcium [Mass/Vol] 9.3 mg/dL Normal 8.5-10.1 [facility] Comment on above: Performed By: #### C MP, BNP ####[facility] Ousbeyxivn7[address] [place], [place] [address]Dr. Emelina Navarro Chloride [Moles/Vol] 93 mmol/L Critically low 98-107 [facility] Comment on above: Performed By: #### C MP, BNP ####[facility] Aoaxowdwfm147[address] [place], [place] [address]Dr. Emelina Navarro CO2 [Moles/Vol] 36.4 mmol/L Critically high 21.0-32.0 [facility] Comment on above: Performed By: #### C MP, BNP ####[facility] R[address]pcuqtp7[address] [place], [place] [address]Dr. Emelina Navarro Creatinine [Mass/Vol] 1.99 mg/dL Critically high 0.70-1.30 [facility] Comment on above: Performed By: #### C MP, BNP ####[facility] Fngbzvihaq34[address] [place], [place] [address]Dr. Emelina Navarro EGFR-AF SURINAMESE 41 mL/min/1.73m2 Critically low >=60 [facility] Comment on above: Performed By: #### C MP, BNP ####[facility] Vyltvbvgkj[address] [place] [address]Dr. Emelina Navarro EGFR-NON AF SURINAMESE 34 mL/min/1.73m2 Critically low >=60 [facility] Comment on above: Performed By: #### C MP, BNP ####[facility] Jepciwdjfc60[address] [place] [address]Dr. Emelina Navarro Globulin (S) [Mass/Vol] 4.2 g/dL Normal [facility] Comment on above: Performed By: #### C MP, BNP ####[facility] Hxttwzajjg044[address] [place] [address]Dr. Emelina Navarro Glucose [Mass/Vol] 311 mg/dL Critically high 74-106 [facility] Comment on above: Performed By: #### C MP, BNP ####[facility] Nehvjeeugo[address] [place], [place] [address]Dr. Awildanitza Navarro Potassium [Moles/Vol] 3.9 mmol/L Normal 3.5-5.1 [facility] Comment on above: Performed By: #### C MP, BNP ####[facility] Uzyulvuxos74[address] [place], [place] [address]Dr. Emelina Navarro Protein [Mass/Vol] 7.5 g/dL Normal 6.4-8.2 [facility] Comment on above: Performed By: #### C MP, BNP ####[facility] H[address]rkoocj[address] [place], [place] [address]Dr. Emelina Navarro Sodium [Moles/Vol] 135 mmol/L Critically low 136-145 [facility] Comment on above: Performed By: #### C MP, BNP ####[facility] [address]tyuqfqwk7[address] [place], [place] [address]Dr. Emelina Navarro Urea nitrogen [Mass/Vol] 57.0 mg/dL Critically high 7.0-18.0 [facility] Comment on above: Performed By: #### C MP, BNP ####[facility] Thrxrqpaeh[address] [place], [place] [address]Dr. Emelina Navarro Urea nitrogen/Creatinine [Mass ratio] 28.6 mg/mg Normal [facility] Comment on above: Performed By: #### C MP, BNP ####[facility] Q[address]bzjvlx[address] [place], [place] [address]Dr. Emelina Navarro BNPon 01-09-2023 Natriuretic peptide B (Bld) [Mass/Vol] 9097.0 pg/mL Critically high <=900.0 [facility] Comment on above: Performed By: #### B STRAIGHT PIN MAKING MACHINE OPERATOR, CMP ####[facility] [facility] [address]qdr[address] [place], [place] [address]Dr. Emelina Navarro CBC AUTO DIFFon 01-09-2023 BASO # 0.0 103/ul Normal 0.0-0.1 [facility] Comment on above: Performed By: #### C BC ####[facility] Aetlkyqldx[address] [place], [place] [address]Dr. Awildanitza Navarro Basophils/100 WBC (Bld) 0.2 % Normal 0.2-2.0 [facility] Comment on above: Performed By: #### C BC ####[facility] Ctckefiaot[address] [place], [place] [address]Dr. Emelina Navarro EO # 0.2 103/ul Normal 0.0-0.7 [facility] Comment on above: Performed By: #### C BC ####[facility] Nqcioeakgh[address] [place], [place] [address]Dr. Emelina Navarro Eosinophils/100 WBC (Bld) 2.1 % Normal 0.9-7.0 [facility] Comment on above: Performed By: #### C BC ####[facility] Hjfgaysinn6[address] [place], [place] [address]Dr. Emelina Navarro Erythrocyte distribution width (RBC) [Ratio] 17.1 % Critically high 11.0-15.0 [facility] Comment on above: Performed By: #### C BC ####[facility] Cphyqdaqbz2540[address] [place], [place] [address]Dr. Emelina Navarro Hematocrit (Bld) [Volume fraction] 40.5 % Critically low 42.0-54.0 [facility] Comment on above: Performed By: #### C BC ####[facility] [address] [place] [id number]. Emelina Navarro Hemoglobin (Bld) [Mass/Vol] 13.0 g/dL Critically low 14.0-18.0 [facility] Comment on above: Performed By: #### C BC ####[facility] Cdqvoujakx6781 [place] [id number]. Emelina Navarro IG # 0.06 10e3/ul Critically high 0.00-0.03 [facility] Comment on above: Performed By: #### C BC ####[facility] Hlovoixitn43[address] [place], [place] [address]Dr. Emelina Navarro IG % 0.5 % Normal 0.0-0.5 [facility] Comment on above: Performed By: #### C BC ####[facility] Qdqjgphjuu7[address] [place], [place] [address]Dr. Emelina Navarro LYMPH # 1.6 103/ul Normal 1.2-3.8 [facility] Comment on above: Performed By: #### C BC ####[facility] Scdygscckh[address] [place], [place] [address]Dr. Emelina Navarro Lymphocytes/100 WBC (Bld) 14.1 % Critically low 20.5-60.0 [facility] Comment on above: Performed By: #### C BC ####[facility] Xl[address]cwxg[address] [place] [address]Dr. Awildanitza Navarro MANUAL DIFF REQ NO Normal The [facility] Comment on above: Performed By: #### C BC ####[facility] Eniueksxwl6315[address] [place], [place] [address]Dr. Emelina Navarro MCH (RBC) [Entitic mass] 28.4 pg Normal 25.9-34.0 [facility] Comment on above: Performed By: #### C BC ####[facility] Qzkzugoovz39[address] [place], [place] [address]Dr. Emelina Navarro MCHC (RBC) [Mass/Vol] 32.1 g/dL Normal 29.9-35.2 [facility] Comment on above: Performed By: #### C BC ####[facility] Ngftwsaynv9237 [place] [id number]. Emelina Navarro MCV (RBC) [Entitic vol] 88.4 fL Normal 80.0-94.0 [facility] Comment on above: Performed By: #### C BC ####[facility] Crhzkbnhuy1264 [place] [id number]. Emelina Navarro MONO # 0.9 103/ul Critically high 0.3-0.8 The [facility] Comment on above: Performed By: #### C BC ####[facility] Xeezvnrhen5697 [place] [id number]. Emelina Navarro Monocytes/100 WBC (Bld) 8.0 % Normal 1.7-12.0 [facility] Comment on above: Performed By: #### C BC ####[facility] Oywpzjfijf6732 [place] [address]Dr. Emelina Navarro NEUT # 8.6 103/ul Critically high 1.4-6.5 The [facility] Comment on above: Performed By: #### C BC ####[facility] Rwmrusrvok2344 [place] [id number]. Emelina Navarro Neutrophils/100 WBC (Bld) 75.1 % Critically high 43.0-75.0 [facility] Comment on above: Performed By: #### C BC ####[facility] Ckvpffsklk79[address] [place], [place] [id number]. Emelina Navarro Platelet mean volume (Bld) [Entitic vol] 11.2 fL Normal 9.5-13.5 [facility] Comment on above: Performed By: #### C BC ####[facility] Xshexoawaa9870 [place] [id number]. Emelina Navarro PLT 99 103/ul Critically low 150-450 [facility] Comment on above: Performed By: #### C BC ####[facility] Oksioyzecq6806 [place] [id number]. Emelina Navarro RBC 4.58 106/ul Critically low 4.70-6.10 The [facility] Comment on above: Performed By: #### C BC ####[facility] Cvxenqzmiv7306 [place] [id number]. Emelina Navarro WBC 11.5 103/ul Critically high 4.0-11.0 [facility] Comment on above: Performed By: #### C BC ####[facility] Oyylkvwqsm8683 [place] [address]Dr. Emelina Navarro CT HEAD WO CONon 01-09-2023 CT HEAD WO CON Normal [facility] PROF 14(COMP METB)on 023 Albumin [Mass/Vol] 3.2 g/dL Critically low 3.4-5.0 Th e [facility] Comment on above: Performed By: #### B STRAIGHT PIN MAKING MACHINE OPERATOR, CMP ####[facility] Ivbrdxlwbc8980[address] [place], [place] [address]Dr. Emelina Navarro Albumin/Globulin [Mass ratio] 0.8 {ratio} Normal [facility] Comment on above: Performed By: #### B STRAIGHT PIN MAKING MACHINE OPERATOR, CMP ####[facility] Qidgojvkpa0580[address] [place], [place] [address]Dr. Emelina Navarro ALP [Catalytic activity/Vol] 150 U/L Critically high 46-116 [facility] Comment on above: Performed By: #### B STRAIGHT PIN MAKING MACHINE OPERATOR, CMP ####[facility] Rtnpzzclqk3876[address] [place], [place] [address]Dr. Emelina Navarro ALT [Catalytic activity/Vol] 27 U/L Normal 16-63 [facility] Comment on above: Performed By: #### B STRAIGHT PIN MAKING MACHINE OPERATOR, CMP ####[facility] Ucgqdjigcu0171 [place] [address]Dr. Emelina Navarro Anion gap [Moles/Vol] 9.7 mmol/L Normal [facility] Comment on above: Performed By: #### B STRAIGHT PIN MAKING MACHINE OPERATOR, CMP ####[facility] Chdmwbwrfv1315[address] [place], [place] [address]Dr. Emelina Navarro AST [Catalytic activity/Vol] 29 U/L Normal 15-37 [facility] Comment on above: Performed By: #### B STRAIGHT PIN MAKING MACHINE OPERATOR, CMP ####[facility] Ehlyfnocpw7040[address] [place], [place] [address]Dr. Yilan Navarro Bilirubin [Mass/Vol] 1.3 mg/dL Critically high 0.2-1.0 [facility] Comment on above: Performed By: #### B STRAIGHT PIN MAKING MACHINE OPERATOR, CMP ####[facility] Zvhbjyxbey8196[address] [place], [place] [address]Dr. Emelina Navarro Calcium [Mass/Vol] 9.0 mg/dL Normal 8.5-10.1 [facility] Comment on above: Performed By: #### B STRAIGHT PIN MAKING MACHINE OPERATOR, CMP ####[facility] Kpltckxmcs2105[address] [place], [place] [address]Dr. Emelina Navarro Chloride [Moles/Vol] 93 mmol/L Critically low 98-107 [facility] Comment on above: Performed By: #### B STRAIGHT PIN MAKING MACHINE OPERATOR, CMP ####[facility] Nldrjiyswg4446[address] [place], [place] [address]Dr. Emelina Navarro CO2 [Moles/Vol] 33.6 mmol/L Critically high 21.0-32.0 [facility] Comment on above: Performed By: #### B STRAIGHT PIN MAKING MACHINE OPERATOR, CMP ####[facility] Cjbuigkofv[address] [place], [place] [address]Dr. Emelina Navarro Creatinine [Mass/Vol] 1.75 mg/dL Critically high 0.70-1.30 [facility] Comment on above: Performed By: #### B STRAIGHT PIN MAKING MACHINE OPERATOR, CMP ####[facility] Llfuxtyang[address] [place], [place] [address]Dr. Emelina Navarro EGFR-AF SURINAMESE 47 mL/min/1.73m2 Critically low >=60 [facility] Comment on above: Performed By: #### B STRAIGHT PIN MAKING MACHINE OPERATOR, CMP ####[facility] Aoaukvlime2[address] [place], [place] [address]Dr. Emelina Navarro EGFR-NON AF SURINAMESE 39 mL/min/1.73m2 Critically low >=60 [facility] Comment on above: Performed By: #### B STRAIGHT PIN MAKING MACHINE OPERATOR, CMP ####[facility] Lkeoibfsip2165[address] [place], [place] [address]Dr. Emelina Navarro Globulin (S) [Mass/Vol] 4.1 g/dL Normal [facility] Comment on above: Performed By: #### B STRAIGHT PIN MAKING MACHINE OPERATOR, CMP ####[facility] Ehjcorigvy7734[address] [place], [place] [address]Dr. Emelina Navarro Glucose [Mass/Vol] 235 mg/dL Critically high 74-106 [facility] Comment on above: Performed By: #### B STRAIGHT PIN MAKING MACHINE OPERATOR, CMP ####[facility] Zrssvqcqdw94[address] [place], [place] [address]Dr. Emelina Navarro Potassium [Moles/Vol] 3.3 mmol/L Critically low 3.5-5.1 [facility] Comment on above: Performed By: #### B STRAIGHT PIN MAKING MACHINE OPERATOR, CMP ####[facility] Mfwmkdfzfs4256[address] [place], [place] [address]Dr. Emelina Navarro Protein [Mass/Vol] 7.3 g/dL Normal 6.4-8.2 [facility] Comment on above: Performed By: #### B STRAIGHT PIN MAKING MACHINE OPERATOR, CMP ####[facility] Xpllzugcyt750[address] [place], [place] [address]Dr. Emelina Navarro Sodium [Moles/Vol] 133 mmol/L Critically low 136-145 [facility] Comment on above: Performed By: #### B STRAIGHT PIN MAKING MACHINE OPERATOR, CMP ####[facility] Wixmdijmmx6766[address] [place], [place] [address]Dr. Emelina Navarro Urea nitrogen [Mass/Vol] 50.0 mg/dL Critically high 7.0-18.0 [facility] Comment on above: Performed By: #### B STRAIGHT PIN MAKING MACHINE OPERATOR, CMP ####[facility] Nvznxbpvfj1046[address] [place], [place] [address]Dr. Emelina Navarro Urea nitrogen/Creatinine [Mass ratio] 28.6 mg/mg Normal [facility] Comment on above: Performed By: #### B STRAIGHT PIN MAKING MACHINE OPERATOR, CMP ####[facility] Gybfkwycqs7240[address] [place], [place] [address]Dr. Emelina Ramon BNPon 01-08-2023 Natriuretic peptide B (Bld) [Mass/Vol] 8174.0 pg/mL Critically high <=900.0 [facility] Comment on above: Performed By: #### B STRAIGHT PIN MAKING MACHINE OPERATOR ####[facility] Dtwytxwnjx8078[address] [place], [place] [address]Dr. Awildanitza Ramon CBC AUTO DIFFon 01-08-2023 BASO # 0.0 103/ul Normal 0.0-0.1 [facility] Comment on above: Performed By: #### C BC ####[facility] Qqivwtalbu7281 [place] [address]DrWesley Navarro Basophils/100 WBC (Bld) 0.2 % Normal 0.2-2.0 [facility] Comment on above: Performed By: #### C BC ####[facility] Duxnzoxbyn1255 [place] [address]DrWesley Navarro EO # 0.2 103/ul Normal 0.0-0.7 [facility] Comment on above: Performed By: #### C BC ####[facility] Bgejvteqmt5078[address] [place], [place] [address]DrWesley Navarro Eosinophils/100 WBC (Bld) 1.7 % Normal 0.9-7.0 [facility] Comment on above: Performed By: #### C BC ####[facility] Xgopcgsdps2679[address] [place], [place] [address]DrWesley Navarro Erythrocyte distribution width (RBC) [Ratio] 17.4 % Critically high 11.0-15.0 [facility] Comment on above: Performed By: #### C BC ####[facility] Zcmqgcpwoa14[address] [place], [place] [address]DrWesley Navarro Hematocrit (Bld) [Volume fraction] 40.8 % Critically low 42.0-54.0 [facility] Comment on above: Performed By: #### C BC ####[facility] Wupatlzero5906[address] [place], [place] [address]DrWesley Navarro Hemoglobin (Bld) [Mass/Vol] 13.3 g/dL Critically low 14.0-18.0 [facility] Comment on above: Performed By: #### C BC ####[facility] Sckrgxczkp[address] [place], [place] [address]DrWesley Navarro IG # 0.05 10e3/ul Critically high 0.00-0.03 [facility] Comment on above: Performed By: #### C BC ####[facility] Sasubeyepw9388[address] [place], [place] [address]Dr. Emelina Navarro IG % 0.4 % Normal 0.0-0.5 [facility] Comment on above: Performed By: #### C BC ####[facility] Ipkyoobvkb8779 [place] [address]DrWesley Navarro LYMPH # 1.7 103/ul Normal 1.2-3.8 [facility] Comment on above: Performed By: #### C BC ####[facility] Dliylujolq0172 [place] [address]DrWesley Navarro Lymphocytes/100 WBC (Bld) 12.5 % Critically low 20.5-60.0 [facility] Comment on above: Performed By: #### C BC ####[facility] Vujupalufs9395[address] [place], [place] [address]DrWesley Navarro MANUAL DIFF REQ NO Normal The [facility] Comment on above: Performed By: #### C BC ####[facility] Urqdvrlyqr1037 [place] [address]DrWesley Navarro MCH (RBC) [Entitic mass] 29.1 pg Normal 25.9-34.0 [facility] Comment on above: Performed By: #### C BC ####[facility] Omfxydnfog5947[address] [place], [place] [address]DrWesley Navarro MCHC (RBC) [Mass/Vol] 32.6 g/dL Normal 29.9-35.2 [facility] Comment on above: Performed By: #### C BC ####[facility] Zzpecdziuy7[address] [place], [place] [address]DrWesley Navarro MCV (RBC) [Entitic vol] 89.3 fL Normal 80.0-94.0 [facility] Comment on above: Performed By: #### C BC ####[facility] Jzlbqvnhoq94[address] [place], [place] [address]DrWesley Navarro MONO # 1.0 103/ul Critically high 0.3-0.8 The [facility] Comment on above: Performed By: #### C BC ####[facility] Xkqvxdqota3165[address] [place], [place] [address]DrWesley Navarro Monocytes/100 WBC (Bld) 7.6 % Normal 1.7-12.0 [facility] Comment on above: Performed By: #### C BC ####[facility] Ifvlwlaxfw9904 [place] [id number]. Emelina Navarro NEUT # 10.3 103/ul Critically high 1.4-6.5 [facility] Comment on above: Performed By: #### C BC ####[facility] Mniiadtbon3509 [place] [id number] Eemlina Navarro Neutrophils/100 WBC (Bld) 77.6 % Critically high 43.0-75.0 [facility] Comment on above: Performed By: #### C BC ####[facility] Nsrobhwten2751 [place] [address]DrWesley Emelina Navarro Platelet mean volume (Bld) [Entitic vol] 11.0 fL Normal 9.5-13.5 [facility] Comment on above: Performed By: #### C BC ####[facility] Ysmwwizahz3943 [place] [id number]. Emelina Navarro PLT 106 103/ul Critically low 150-450 [facility] Comment on above: Performed By: #### C BC ####[facility] Yvqodniavn[address] [place], [place] [address]Dr. Emelina Navarro RBC 4.57 106/ul Critically low 4.70-6.10 The [facility] Comment on above: Performed By: #### C BC ####[facility] Avocokiieh3284 [place] [id number] Emelina Navarro WBC 13.3 103/ul Critically high 4.0-11.0 [facility] Comment on above: Performed By: #### C BC ####[facility] Tiweocbnvm7134 [place] [phone] Emelina Navarro CULTURE URINEon 01-08-2023 CULTURE URINE Culture Observations : LIGHT GROWTH OF MIXED SKIN CEDRIC. NO POTENTIAL PATHOGENS SEEN. Normal [facility] Comment on above: Performed By: #### U RCX ####[facility] Gclzskwcog[address] [place], [place] [id number] Navarro ECHOCARDIO M/2D COMPLETEon 0 01-08-2023 ECHOCARDIO M/2D COMPLETE Normal [facility] PROCALCITONINon 01-08-2023 Procalcitonin 0.10 ng/mL Critically high 0.00-0.08 [facility] Comment on above: Result Comment: .A p [...] ng/mL are obtained. Performed By: #### P CTLC ####[facility] Cjpckvgzdx4530 [place] [address]DrWesley Navarro PROF 14(COMP METB)on 023 Albumin [Mass/Vol] 3.3 g/dL Critically low 3.4-5.0 [facility] Comment on above: Performed By: #### C MP ####[facility] Tgnfpqlwkn3491 [place] [address]DrWesley Navarro Albumin/Globulin [Mass ratio] 0.8 {ratio} Normal [facility] Comment on above: Performed By: #### C MP ####[facility] Fljvomiruf8566 [place] [address]DrWesley Navarro ALP [Catalytic activity/Vol] 140 U/L Critically high 46-116 [facility] Comment on above: Performed By: #### C MP ####[facility] Nwrrttutyj4866 [place] [address]Dr. Emelina Navarro ALT [Catalytic activity/Vol] 22 U/L Normal 16-63 [facility] Comment on above: Performed By: #### C MP ####[facility] Amofjszoey4876 [place] [address]Dr. Emelina Navarro Anion gap [Moles/Vol] 13.1 mmol/L Normal Th [facility] Comment on above: Performed By: #### C MP ####[facility] Ndyxwiolbi0114 [place] [address]Dr. Emelina Navarro AST [Catalytic activity/Vol] 21 U/L Normal 15-37 [facility] Comment on above: Performed By: #### C MP ####[facility] Pxndlvrfkn5519[address] [place], [place] [address]Dr. Emelina Navarro Bilirubin [Mass/Vol] 1.3 mg/dL Critically high 0.2-1.0 [facility] Comment on above: Performed By: #### C MP ####[facility] Chnjcoffse6969[address] [place], [place] [address]Dr. Emelina Navarro Calcium [Mass/Vol] 9.1 mg/dL Normal 8.5-10.1 [facility] Comment on above: Performed By: #### C MP ####[facility] Uzljzrhdgn0659[address] [place], [place] [address]Dr. Emelina Navarro Chloride [Moles/Vol] 95 mmol/L Critically low 98-107 [facility] Comment on above: Performed By: #### C MP ####[facility] Ddhryydpmg9526[address] [place], [place] [address]Dr. Emelina Navarro CO2 [Moles/Vol] 30.4 mmol/L Normal 21.0-32.0 [facility] Comment on above: Performed By: #### C MP ####[facility] Zlikedovzn2887[address] [place], [place] [address]Dr. Emelina Navarro Creatinine [Mass/Vol] 1.67 mg/dL Critically high 0.70-1.30 [facility] Comment on above: Performed By: #### C MP ####[facility] Jdllchektu7699[address] [place], [place] [address]Dr. Emelina Navarro EGFR-AF SURINAMESE 50 mL/min/1.73m2 Critically low >=60 [facility] Comment on above: Performed By: #### C MP ####[facility] Mjtgchclfg6342 [place] [address]Dr. Emelina Ramon EGFR-NON AF SURINAMESE 41 mL/min/1.73m2 Critically low >=60 [facility] Comment on above: Performed By: #### C MP ####[facility] Xvduzngbzm0911 [place] [address]Dr. Emelina Ramon Globulin (S) [Mass/Vol] 3.9 g/dL Normal [facility] Comment on above: Performed By: #### C MP ####[facility] Jtxszgsabu497[address] [place], [place] [address]Dr. Awildanitza Ramon Glucose [Mass/Vol] 198 mg/dL Critically high 74-106 [facility] Comment on above: Performed By: #### C MP ####[facility] Jfsytagzla0309 [place] [address]Dr. Emelina Ramon Potassium [Moles/Vol] 3.5 mmol/L Normal 3.5-5.1 [facility] Comment on above: Performed By: #### C MP ####[facility] Qgiqdrjpte98[address] [place], [place] [address]Dr. Emelina Ramon Protein [Mass/Vol] 7.2 g/dL Normal 6.4-8.2 [facility] Comment on above: Performed By: #### C MP ####[facility] Dkakgihdil6869 [place] [address]Dr. Emelina Ramon Sodium [Moles/Vol] 135 mmol/L Critically low 136-145 [facility] Comment on above: Performed By: #### C MP ####[facility] Rtweehfqkt607[address] [place], [place] [address]Dr. Emelina Navarro Urea nitrogen [Mass/Vol] 42.0 mg/dL Critically high 7.0-18.0 [facility] Comment on above: Performed By: #### C MP ####[facility] Lxzsruwcnw4076[address] [place], [place] [address]DrWesley Navarro Urea nitrogen/Creatinine [Mass ratio] 25.1 mg/mg Normal [facility] Comment on above: Performed By: #### C MP ####[facility] Lbqmwsmbdu175[address] [place], [place] [address]DrWesley Emelina Navarro PROTIMEon 01-08-2023 INR Coag (PPP) [Relative time] 2.59 {INR} Normal [facility] Comment on above: Performed By: #### P T ####[facility] Wwpypzmuij0418[address] [place], [place] [address]DrWesley Emelina Ramon INR GUIDELINES SEE BELOW Normal [facility] Comment on above: Result Comment: WENDY RED INR: 2.0 - 3.0 CONDITIONS NOT LISTED BELOW 2.5 - 3.5 FOR PROSTHETIC HEART VALVE REPLACEMENT 2.5 - 3.5 RECURRENT THROMBOSIS Performed By: #### P T ####[facility] Usaqozlliq9516[address] [place], [place] [address]DrWesley Navarro PT Coag (PPP) [Time] 26.0 s Critically high 9.0-11.6 [facility] Comment on above: Performed By: #### P T ####[facility] Hzxrqflqxi1430[address] [place], [place] [address]DrWesley Navarro CBC AUTO DIFFon 01-07-2023 BASO # 0.0 103/ul Normal 0.0-0.1 [facility] Comment on above: Performed By: #### C BC ####[facility] Wotcmnhygl5296[address] [place], [place] [address]DrWesley Navarro Basophils/100 WBC (Bld) 0.3 % Normal 0.2-2.0 [facility] Comment on above: Performed By: #### C BC ####[facility] Klzcreiqib294[address] [place], [place] [address]DrWesley Navarro EO # 0.3 103/ul Normal 0.0-0.7 [facility] Comment on above: Performed By: #### C BC ####[facility] Agrclpijdo6[address] [place], [place] [address]DrWesley Navarro Eosinophils/100 WBC (Bld) 2.3 % Normal 0.9-7.0 [facility] Comment on above: Performed By: #### C BC ####[facility] Ytgrmsuesn3209 [place] [address]Dr. Emelina Navarro Erythrocyte distribution width (RBC) [Ratio] 17.8 % Critically high 11.0-15.0 [facility] Comment on above: Performed By: #### C BC ####[facility] Mybwkrbvgc43[address] [place] [address]Dr. Emelina Navarro Hematocrit (Bld) [Volume fraction] 43.3 % Normal 42.0-54.0 [facility] Comment on above: Performed By: #### C BC ####[facility] Ujqvxkhcdh38[address] [place], [place] [address]Dr. Emelina Ramon Hemoglobin (Bld) [Mass/Vol] 13.6 g/dL Critically low 14.0-18.0 [facility] Comment on above: Performed By: #### C BC ####[facility] [address]fmjl[address] [place], [place] [address]Dr. Awildanitza Ramon IG # 0.05 10e3/ul Critically high 0.00-0.03 [facility] Comment on above: Performed By: #### C BC ####[facility] Exhthowpzn404[address] [place], [place] [address]Dr. Emelina Navarro IG % 0.4 % Normal 0.0-0.5 [facility] Comment on above: Performed By: #### C BC ####[facility] Sdciyjqwdw280[address] [place], [place] [address]Dr. Emelina Navarro LYMPH # 1.8 103/ul Normal 1.2-3.8 [facility] Comment on above: Performed By: #### C BC ####[facility] Czcoauptrw9904[address] [place], [place] [address]Dr. Emelina Navarro Lymphocytes/100 WBC (Bld) 12.8 % Critically low 20.5-60.0 [facility] Comment on above: Performed By: #### C BC ####[facility] Maugiwuwyj80[address] [place], [place] [address]Dr. Emelina Navarro MANUAL DIFF REQ NO Normal [facility] Comment on above: Performed By: #### C BC ####[facility] Bhsijwbqpb[address] [place] [address]Dr. Emelina Navarro MCH (RBC) [Entitic mass] 28.4 pg Normal 25.9-34.0 [facility] Comment on above: Performed By: #### C BC ####[facility] Ocbxmpyqgt4196 [place] [address]Dr. Emelina Navarro MCHC (RBC) [Mass/Vol] 31.4 g/dL Normal 29.9-35.2 [facility] Comment on above: Performed By: #### C BC ####[facility] Yaojuummee8808 [place] [address]Dr. Emelina Navarro MCV (RBC) [Entitic vol] 90.4 fL Normal 80.0-94.0 [facility] Comment on above: Performed By: #### C BC ####[facility] Jlujfrzrcj416[address] [place], [place] [address]DrWesley Navarro MONO # 0.9 103/ul Critically high 0.3-0.8 [facility] Comment on above: Performed By: #### C BC ####[facility] Yurirtprbs5160[address] [place], [place] [address]DrWesley Navarro Monocytes/100 WBC (Bld) 6.8 % Normal 1.7-12.0 [facility] Comment on above: Performed By: #### C BC ####[facility] Qvmyesefob1928[address] [place], [place] [address]DrWesley Navarro NEUT # 10.7 103/ul Critically high 1.4-6.5 [facility] Comment on above: Performed By: #### C BC ####[facility] Kqcjeloiqo745[address] [place], [place] [address]DrWesley Navarro Neutrophils/100 WBC (Bld) 77.4 % Critically high 43.0-75.0 [facility] Comment on above: Performed By: #### C BC ####[facility] Hrrirpsyke0469[address] [place], [place] [address]DrWesley Navarro Platelet mean volume (Bld) [Entitic vol] 11.5 fL Normal 9.5-13.5 [facility] Comment on above: Performed By: #### C BC ####[facility] Miggfhfhxn32[address] [place] [address]Dr. Emelina Navarro PLT 114 103/ul Critically low 150-450 [facility] Comment on above: Performed By: #### C BC ####[facility] Fwcysjqjlz0772 [place] [address]Dr. Emelina Navarro RBC 4.79 106/ul Normal 4.70-6.10 [facility] Comment on above: Performed By: #### C BC ####[facility] Entwtxpbzv8420 [place] [address]Dr. Emelina Navarro WBC 13.8 103/ul Critically high 4.0-11.0 [facility] Comment on above: Performed By: #### C BC ####[facility] Pjlqgkffpd8429 [place] [address]DrWesley Navarro PROF 14(COMP METB)on 023 Albumin [Mass/Vol] 3.4 g/dL Normal 3.4-5.0 [facility] Comment on above: Performed By: #### C MP ####[facility] Ukunxehsbh4047[address] [place], [place] [address]DrWesley Navarro Albumin/Globulin [Mass ratio] 0.9 {ratio} Normal [facility] Comment on above: Performed By: #### C MP ####[facility] Zqatqpaxki5905 [place] [address]DrWesley Navarro ALP [Catalytic activity/Vol] 130 U/L Critically high 46-116 [facility] Comment on above: Performed By: #### C MP ####[facility] Gipefgmhpk2839 [place] [address]DrWesley Navarro ALT [Catalytic activity/Vol] 24 U/L Normal 16-63 [facility] Comment on above: Performed By: #### C MP ####[facility] Wyljsrbsbr646[address] [place], [place] [address]DrWesley Navarro Anion gap [Moles/Vol] 12.2 mmol/L Normal [facility] Comment on above: Performed By: #### C MP ####[facility] Stpoyogbza0845 [place] [address]Dr. Emelina Ramon AST [Catalytic activity/Vol] 22 U/L Normal 15-37 [facility] Comment on above: Performed By: #### C MP ####[facility] Ddgvopniyk4538 [place] [address]Dr. Emelina Navarro Bilirubin [Mass/Vol] 1.1 mg/dL Critically high 0.2-1.0 [facility] Comment on above: Performed By: #### C MP ####[facility] Oefkwhfzjy4112[address] [place], [place] [address]Dr. Emelina Navarro Calcium [Mass/Vol] 9.0 mg/dL Normal 8.5-10.1 [facility] Comment on above: Performed By: #### C MP ####[facility] Hvanvzruzx3767[address] [place], [place] [address]Dr. Emelina Navarro Chloride [Moles/Vol] 99 mmol/L Normal 98-107 [facility] Comment on above: Performed By: #### C MP ####[facility] Shdeuaczob029[address] [place], [place] [address]Dr. Emelina Navarro CO2 [Moles/Vol] 30.5 mmol/L Normal 21.0-32.0 [facility] Comment on above: Performed By: #### C MP ####[facility] Cphszqyrxj788[address] [place], [place] [address]Dr. Emelina Navarro Creatinine [Mass/Vol] 1.58 mg/dL Critically high 0.70-1.30 [facility] Comment on above: Performed By: #### C MP ####[facility] Kjbvlyktub034[address] [place], [place] [address]Dr. Emelina Navarro EGFR-AF SURINAMESE 53 mL/min/1.73m2 Critically low >=60 [facility] Comment on above: Performed By: #### C MP ####[facility] Uflxihhufp2715[address] [place], [place] [address]Dr. Emelina Navarro EGFR-NON AF SURINAMESE 44 mL/min/1.73m2 Critically low >=60 [facility] Comment on above: Performed By: #### C MP ####[facility] Vivfqqxwmv2989 [place] [address]Dr. Awildanitza Ramon Globulin (S) [Mass/Vol] 3.9 g/dL Normal [facility] Comment on above: Performed By: #### C MP ####[facility] Mmttpmuuyz3687 [place] [address]Dr. Emelina Navarro Glucose [Mass/Vol] 195 mg/dL Critically high 74-106 [facility] Comment on above: Performed By: #### C MP ####[facility] Wfqbhkunns376[address] [place], [place] [address]Dr. Emelina Navarro Potassium [Moles/Vol] 3.7 mmol/L Normal 3.5-5.1 [facility] Comment on above: Performed By: #### C MP ####[facility] Balkyahqvd6476[address] [place], [place] [address]Dr. Emelina Navarro Protein [Mass/Vol] 7.3 g/dL Normal 6.4-8.2 [facility] Comment on above: Performed By: #### C MP ####[facility] Jvpfnukyut1329[address] [place], [place] [address]Dr. Emelina Navarro Sodium [Moles/Vol] 138 mmol/L Normal 136-145 [facility] Comment on above: Performed By: #### C MP ####[facility] Slomqzngtc7026[address] [place], [place] [address]Dr. Emelina Navarro Urea nitrogen [Mass/Vol] 36.0 mg/dL Critically high 7.0-18.0 [facility] Comment on above: Performed By: #### C MP ####[facility] Eziytiqzea9100[address] [place], [place] [address]Dr. Emelina Navarro Urea nitrogen/Creatinine [Mass ratio] 22.8 mg/mg Normal [facility] Comment on above: Performed By: #### C MP ####[facility] Xiyxgxurkf9916[address] [place], [place] [address]Dr. Emelina Navarro CBC AUTO DIFFon 01-06-2023 BASO # 0.0 103/ul Normal 0.0-0.1 [facility] Comment on above: Performed By: #### C BC ####[facility] Ootayddbkh0574 [place] [address]Dr. Emelina Navarro Basophils/100 WBC (Bld) 0.3 % Normal 0.2-2.0 [facility] Comment on above: Performed By: #### C BC ####[facility] Vwbopqzyri4428[address] [place], [place] [address]Dr. Emelina Navarro EO # 0.3 103/ul Normal 0.0-0.7 [facility] Comment on above: Performed By: #### C BC ####[facility] Ickidnecdg9112[address] [place], [place] [address]Dr. Emelina Navarro Eosinophils/100 WBC (Bld) 2.2 % Normal 0.9-7.0 [facility] Comment on above: Performed By: #### C BC ####[facility] Fpcbozjdye1680[address] [place], [place] [address]Dr. Emelina Navarro Erythrocyte distribution width (RBC) [Ratio] 17.9 % Critically high 11.0-15.0 [facility] Comment on above: Performed By: #### C BC ####[facility] Zbruwmpuas606[address] [place], [place] [address]Dr. Emelina Navarro Hematocrit (Bld) [Volume fraction] 40.9 % Critically low 42.0-54.0 [facility] Comment on above: Performed By: #### C BC ####[facility] Taznsftuej545[address] [place], [place] [address]Dr. Emelina Navarro Hemoglobin (Bld) [Mass/Vol] 12.9 g/dL Critically low 14.0-18.0 [facility] Comment on above: Performed By: #### C BC ####[facility] Kybtybrgcr399[address] [place], [place] [address]Dr. Awildanitza Navarro IG # 0.04 10e3/ul Critically high 0.00-0.03 [facility] Comment on above: Performed By: #### C BC ####[facility] Mehmvqrsuy65[address] [place] [address]Dr. Awildanitza Navarro IG % 0.3 % Normal 0.0-0.5 [facility] Comment on above: Performed By: #### C BC ####[facility] Gxqkloelyg1879 [place] [address]Dr. Emelina Navarro LYMPH # 2.2 103/ul Normal 1.2-3.8 [facility] Comment on above: Performed By: #### C BC ####[facility] Lqhkvivmee0901 [place] [address]Dr. Emelina Navarro Lymphocytes/100 WBC (Bld) 17.3 % Critically low 20.5-60.0 [facility] Comment on above: Performed By: #### C BC ####[facility] Huprtvrvwc8045[address] [place], [place] [address]Dr. Emelina Navarro MANUAL DIFF REQ NO Normal [facility] Comment on above: Performed By: #### C BC ####[facility] Hrjylztwgj8437 [place] [address]Dr. Emelina Ramon MCH (RBC) [Entitic mass] 28.5 pg Normal 25.9-34.0 [facility] Comment on above: Performed By: #### C BC ####[facility] Siszrkdjzq6120[address] [place], [place] [address]Dr. Emelina Navarro MCHC (RBC) [Mass/Vol] 31.5 g/dL Normal 29.9-35.2 [facility] Comment on above: Performed By: #### C BC ####[facility] Apisructdi25112[address] [place], [place] [address]Dr. Emelina Navarro MCV (RBC) [Entitic vol] 90.3 fL Normal 80.0-94.0 [facility] Comment on above: Performed By: #### C BC ####[facility] Rcnmdyvycv8217[address] [place], [place] [address]DrWesley Nvaarro MONO # 0.9 103/ul Critically high 0.3-0.8 [facility] Comment on above: Performed By: #### C BC ####[facility] Wcrpuzyswr6765[address] [place], [place] [address]Dr. Emelina Navarro Monocytes/100 WBC (Bld) 7.5 % Normal 1.7-12.0 [facility] Comment on above: Performed By: #### C BC ####[facility] Ghtwcztwhu9285 [place] [address]Dr. Emelina Navarro NEUT # 9.1 103/ul Critically high 1.4-6.5 [facility] Comment on above: Performed By: #### C BC ####[facility] Yolpamtokk3506 [place] [address]Dr. Emelina Navarro Neutrophils/100 WBC (Bld) 72.4 % Normal 43.0-75.0 [facility] Comment on above: Performed By: #### C BC ####[facility] Ytimvkhswf9862 [place] [address]Dr. Emelina Navarro Platelet mean volume (Bld) [Entitic vol] 11.3 fL Normal 9.5-13.5 [facility] Comment on above: Performed By: #### C BC ####[facility] Rgrtzxvtbk1092 [place] [address]Dr. Emelina Navarro PLT 119 103/ul Critically low 150-450 [facility] Comment on above: Performed By: #### C BC ####[facility] Hyqllsoxhi6030 [place] [address]Dr. Emelina Navarro RBC 4.53 106/ul Critically low 4.70-6.10 [facility] Comment on above: Performed By: #### C BC ####[facility] Yhzjpslhfm8418 [place] [address]Dr. Emelina Navarro WBC 12.6 103/ul Critically high 4.0-11.0 [facility] Comment on above: Performed By: #### C BC ####[facility] Ntpsbaxgut5652 [place] [address]DrWesley Emelina Ramon PROF 14(COMP METB)on 023 Albumin [Mass/Vol] 3.1 g/dL Critically low 3.4-5.0 [facility] Comment on above: Performed By: #### C MP ####[facility] Laxdabgkhv3392 [place] [address]Dr. Emelina Ramon Albumin/Globulin [Mass ratio] 1.0 {ratio} Normal [facility] Comment on above: Performed By: #### C MP ####[facility] Vfmggiwaxm7815 [place] [address]Dr. Emelina Ramon ALP [Catalytic activity/Vol] 114 U/L Normal 46-116 [facility] Comment on above: Performed By: #### C MP ####[facility] Zlqygnwcyv366[address] [place], [place] [address]Dr. Emelina Navarro ALT [Catalytic activity/Vol] 23 U/L Normal 16-63 [facility] Comment on above: Performed By: #### C MP ####[facility] Mvovejfrxw9068[address] [place], [place] [address]Dr. Emelina Navarro Anion gap [Moles/Vol] 13.5 mmol/L Normal [facility] Comment on above: Performed By: #### C MP ####[facility] Ynbqmwualo9644[address] [place], [place] [address]Dr. Awildanitza Navarro AST [Catalytic activity/Vol] 24 U/L Normal 15-37 [facility] Comment on above: Performed By: #### C MP ####[facility] Iierrbmwdh860[address] [place], [place] [address]Dr. Emelina Navarro Bilirubin [Mass/Vol] 1.0 mg/dL Normal 0.2-1.0 [facility] Comment on above: Performed By: #### C MP ####[facility] Zpplklvkba3328[address] [place], [place] [address]Dr. Emelina Navarro Calcium [Mass/Vol] 8.5 mg/dL Normal 8.5-10.1 [facility] Comment on above: Performed By: #### C MP ####[facility] Zoofipjgnr3884[address] [place], [place] [address]Dr. Emelina Navarro Chloride [Moles/Vol] 102 mmol/L Normal 98-107 [facility] Comment on above: Performed By: #### C MP ####[facility] Krvjzazwmv3185[address] [place], [place] [address]Dr. Emelina Navarro CO2 [Moles/Vol] 28.2 mmol/L Normal 21.0-32.0 [facility] Comment on above: Performed By: #### C MP ####[facility] Ahorlihmxo5473 [place] [address]Dr. Emelina Ramon Creatinine [Mass/Vol] 1.42 mg/dL Critically high 0.70-1.30 [facility] Comment on above: Performed By: #### C MP ####[facility] Bkvtaipxiz975[address] [place], [place] [address]Dr. Emelina Ramon EGFR-AF SURINAMESE 60 mL/min/1.73m2 Normal >=60 [facility] Comment on above: Performed By: #### C MP ####[facility] Vzohpirgls9014[address] [place], [place] [address]Dr. Emelina Navarro EGFR-NON AF SURINAMESE 50 mL/min/1.73m2 Critically low >=60 [facility] Comment on above: Performed By: #### C MP ####[facility] Qbsvyvgmec365[address] [place], [place] [address]Dr. Awildanitza Navarro Globulin (S) [Mass/Vol] 3.1 g/dL Normal [facility] Comment on above: Performed By: #### C MP ####[facility] Jwhblfacyf9466[address] [place], [place] [address]Dr. Emelina Navarro Glucose [Mass/Vol] 121 mg/dL Critically high 74-106 [facility] Comment on above: Performed By: #### C MP ####[facility] Rpztihqkqe666[address] [place], [place] [address]Dr. Emelina Navarro Potassium [Moles/Vol] 3.7 mmol/L Normal 3.5-5.1 [facility] Comment on above: Performed By: #### C MP ####[facility] Qygctsueqp7489[address] [place], [place] [address]Dr. Emelina Navarro Protein [Mass/Vol] 6.2 g/dL Critically low 6.4-8.2 [facility] Comment on above: Performed By: #### C MP ####[facility] Bplqdtucxa[address] [place], [place] [address]Dr. Emelina Navarro Sodium [Moles/Vol] 140 mmol/L Normal 136-145 [facility] Comment on above: Performed By: #### C MP ####[facility] Jttalzuwhm3098[address] [place], [place] [address]Dr. Emelina Navarro Urea nitrogen [Mass/Vol] 33.0 mg/dL Critically high 7.0-18.0 [facility] Comment on above: Performed By: #### C MP ####[facility] Jtixnmepgt3124[address] [place], [place] [address]Dr. Emelina Navarro Urea nitrogen/Creatinine [Mass ratio] 23.2 mg/mg Normal [facility] Comment on above: Performed By: #### C MP ####[facility] Syqzxthngz9728[address] [place], [place] [address]Dr. Emelina Navarro BNPon 01-05-2023 Natriuretic peptide B (Bld) [Mass/Vol] 7350.0 pg/mL Critically high <=900.0 [facility] Comment on above: Performed By: #### B STRAIGHT PIN MAKING MACHINE OPERATOR, BMP, HSTROPN ####[facility] Rjhqhdlnvr1267[address] [place], [place] [address]Dr. Emelina Navarro CBC AUTO DIFFon 01-05-2023 BASO # 0.0 103/ul Normal 0.0-0.1 [facility] Comment on above: Performed By: #### C BC ####[facility] Bheonhurpr5326[address] [place], [place] [address]Dr. Emelina Ramon Basophils/100 WBC (Bld) 0.3 % Normal 0.2-2.0 [facility] Comment on above: Performed By: #### C BC ####[facility] Toejdrwdia9405[address] [place], [place] [address]Dr. Emelina Navarro EO # 0.3 103/ul Normal 0.0-0.7 [facility] Comment on above: Performed By: #### C BC ####[facility] Bcioolpkul849[address] [place], [place] [address]Dr. Emelina Ramon Eosinophils/100 WBC (Bld) 1.9 % Normal 0.9-7.0 [facility] Comment on above: Performed By: #### C BC ####[facility] Ifbamzkybp2893 [place] [address]Dr. Emelina Navarro Erythrocyte distribution width (RBC) [Ratio] 17.7 % Critically high 11.0-15.0 [facility] Comment on above: Performed By: #### C BC ####[facility] Nnkswjoahr4416 [place] [address]Dr. Emelina Navarro Hematocrit (Bld) [Volume fraction] 42.9 % Normal 42.0-54.0 [facility] Comment on above: Performed By: #### C BC ####[facility] Jkfuhpmjep4554[address] [place], [place] [address]Dr. Emelina Navarro Hemoglobin (Bld) [Mass/Vol] 13.8 g/dL Critically low 14.0-18.0 [facility] Comment on above: Performed By: #### C BC ####[facility] Gdkmpwaism00[address] [place], [place] [address]DrWesley Emelina Navarro IG # 0.07 10e3/ul Critically high 0.00-0.03 [facility] Comment on above: Performed By: #### C BC ####[facility] Cxtrnsnzro02[address] [place], [place] [address]Dr. Emelina Navarro IG % 0.4 % Normal 0.0-0.5 [facility] Comment on above: Performed By: #### C BC ####[facility] Uwoidhaavr80[address] [place], [place] [address]DrWesley Emelina Navarro LYMPH # 1.8 103/ul Normal 1.2-3.8 [facility] Comment on above: Performed By: #### C BC ####[facility] Audqvpujwp942[address] [place], [place] [address]DrWesley Emelina Navarro Lymphocytes/100 WBC (Bld) 11.6 % Critically low 20.5-60.0 [facility] Comment on above: Performed By: #### C BC ####[facility] Mwmnsihdka1229[address] [place], [place] [address]DrWesley Emelina Navarro MANUAL DIFF REQ NO Normal [facility] Comment on above: Performed By: #### C BC ####[facility] Jsvvajhfvl8572 [place] [id number]. Emelina Ramon MCH (RBC) [Entitic mass] 28.5 pg Normal 25.9-34.0 [facility] Comment on above: Performed By: #### C BC ####[facility] Nktqomqzzz8034 [place] [id number]. Emelina Ramon MCHC (RBC) [Mass/Vol] 32.2 g/dL Normal 29.9-35.2 [facility] Comment on above: Performed By: #### C BC ####[facility] Vdqeejhiyq9602 [place] [address]DrWesley Awildanitza Navarro MCV (RBC) [Entitic vol] 88.5 fL Normal 80.0-94.0 [facility] Comment on above: Performed By: #### C BC ####[facility] Kllimpkthv54[address] [place], [place] [address]DrWesley Navarro MONO # 1.1 103/ul Critically high 0.3-0.8 [facility] Comment on above: Performed By: #### C BC ####[facility] Grzaflxvyh4531 [place] [address]Dr. Awildanitza Navarro Monocytes/100 WBC (Bld) 6.9 % Normal 1.7-12.0 [facility] Comment on above: Performed By: #### C BC ####[facility] Vdzoeqcwfq0787 [place] [address]DrWesley Navarro NEUT # 12.4 103/ul Critically high 1.4-6.5 [facility] Comment on above: Performed By: #### C BC ####[facility] Aadcyxyxou[address] [place], [place] [address]DrWesley Navarro Neutrophils/100 WBC (Bld) 78.9 % Critically high 43.0-75.0 [facility] Comment on above: Performed By: #### C BC ####[facility] Ekbcelmijp[address] [place], [place] [address]DrWesley Navarro Platelet mean volume (Bld) [Entitic vol] 11.5 fL Normal 9.5-13.5 [facility] Comment on above: Performed By: #### C BC ####[facility] Vrgylhuilh7997 [place], [place] [address]Az. Emelina Navarro PLT 142 103/ul Critically low 150-450 [facility] Comment on above: Performed By: #### C BC ####[facility] Iqitjefmha0654 [place], [place] [address]Em. Emelina Navarro RBC 4.85 106/ul Normal 4.70-6.10 [facility] Comment on above: Performed By: #### C BC ####[facility] Owektzjnqk2566 [place], [place] [address]Ar. Emelina Navarro WBC 15.8 103/ul Critically high 4.0-11.0 [facility] Comment on above: Performed By: #### C BC ####[facility] Sunjcjnaux8763 [place] [id number]. Emelina Navarro CULTURE BLOODon 01-05-2023 Microscopic examination of blood, culture Culture Observations: NO GROWTH AT 5 DAYS. Normal [facility] Comment on above: Performed By: #### B LDCX2 ####[facility] Jlrijucgkr5962 [place] [id number]. Emelina Navarro Microscopic examination of blood, culture Culture Observations: NO GROWTH AT 5 DAYS. Normal [facility] Comment on above: Performed By: #### B LDCX1 ####[facility] [address]yc[address] [place] [id number]. Emelina Navarro Covid-19 PCR (CVDTB)on 12-20 SARS-CoV-2 (COVID-19) RNA RADHA+probe Ql (Unsp spec) Not detected Normal NOT DETECTED [facility] Comment on above: Result Comment: When diagnostic [...] for this test is supported by the [employer] of Health and Human Service's declaration that [...] be used). Performed By: #### C VDTBH ####[facility] [address]mp[address] [place] [address]Dr. Emelina Navarro DIGOXINon 01-05-2023 DIG 0.8 ng/mL Critically low 0.9-2.0 [facility] Comment on above: Performed By: #### D IG ####[facility] [address] [place] [address]Dr. Emelina Navarro Office Visiton 01-05-2023 Follow-up visit [id number] Adwoa Porter 1955 M Date Provider Department Center 01/05/2023 MASSIMO DYE [facility] Family History Problem Relation Age of Onset Diabetes Mother Hypertension Mother Coronary artery disease Mother Family Status - Relation Status Age at Mother Level of Service:96493 [place] OFFICE/OUTPATIENT ESTABLISHED HIGH MDM 40-54 MIN Reason for Visit and Comments: Atrial Fibrillation [80] Congestive Heart Failure [127] Coronary Artery Disease [187] Normal [facility] PROF CHEM 8 (BAS METB)on Anion gap [Moles/Vol] 12.7 mmol/L Normal [facility] Comment on above: Performed By: #### B STRAIGHT PIN MAKING MACHINE OPERATOR, BMP, HSTROPN ####[facility] [address]zdpr[address]vc[address] [place] [address]DrWesley Navarro Calcium [Mass/Vol] 8.8 mg/dL Normal 8.5-10.1 [facility] Comment on above: Performed By: #### B STRAIGHT PIN MAKING MACHINE OPERATOR, BMP, HSTROPN ####[facility] Kibcgyrejl[address] [place] [address]Dr. Emelina Navarro Chloride [Moles/Vol] 99 mmol/L Normal 98-107 [facility] Comment on above: Performed By: #### B STRAIGHT PIN MAKING MACHINE OPERATOR, BMP, HSTROPN ####[facility] [address]xwf[address] [place] [address]Dr. Emelina Navarro CO2 [Moles/Vol] 28.2 mmol/L Normal 21.0-32.0 [facility] Comment on above: Performed By: #### B STRAIGHT PIN MAKING MACHINE OPERATOR, BMP, HSTROPN ####[facility] Qlgcybxlzc[address] [place] [address]Dr. Emelina Navarro Creatinine [Mass/Vol] 1.64 mg/dL Critically high 0.70-1.30 [facility] Comment on above: Performed By: #### B STRAIGHT PIN MAKING MACHINE OPERATOR, BMP, HSTROPN ####[facility] Qsenerjpcg[address] [place] [address]Dr. Emelina Navarro EGFR-AF SURINAMESE 51 mL/min/1.73m2 Critically low >=60 [facility] Comment on above: Performed By: #### B STRAIGHT PIN MAKING MACHINE OPERATOR, BMP, HSTROPN ####[facility] Bcwuuaqbjc[address] [place] [address]Dr. Emelina Navarro EGFR-NON AF SURINAMESE 42 mL/min/1.73m2 Critically low >=60 [facility] Comment on above: Performed By: #### B STRAIGHT PIN MAKING MACHINE OPERATOR, BMP, HSTROPN ####[facility] Xnebsqgcoj[address] [place] [address]Dr. Emelina Navarro Glucose [Mass/Vol] 203 mg/dL Critically high 74-106 [facility] Comment on above: Performed By: #### B STRAIGHT PIN MAKING MACHINE OPERATOR, BMP, HSTROPN ####[facility] F[address]tknc[address] [place] [address]Dr. Emelina Navarro Potassium [Moles/Vol] 3.9 mmol/L Normal 3.5-5.1 [facility] Comment on above: Performed By: #### B STRAIGHT PIN MAKING MACHINE OPERATOR, BMP, HSTROPN ####[facility] Dpfjzjbmpn14[address] [place] [address]Dr. Emelina Navarro Sodium [Moles/Vol] 136 mmol/L Normal 136-145 [facility] Comment on above: Performed By: #### B STRAIGHT PIN MAKING MACHINE OPERATOR, BMP, HSTROPN ####[facility] E[address]wtcrm[address] [place] [address]Dr. Emelina Navarro Urea nitrogen [Mass/Vol] 32.0 mg/dL Critically high 7.0-18.0 [facility] Comment on above: Performed By: #### B STRAIGHT PIN MAKING MACHINE OPERATOR, BMP, HSTROPN ####[facility] [address]vou[address]cmics[address] [place], [place] [address]Dr. Emelina Navarro Urea nitrogen/Creatinine [Mass ratio] 19.5 mg/mg Normal [facility] Comment on above: Performed By: #### B STRAIGHT PIN MAKING MACHINE OPERATOR, BMP, HSTROPN ####[facility] Dgezpbuozr[address] [place] [address]Dr. Emelina Navarro PROTIMEon 01-05-2023 INR Coag (PPP) [Relative time] 2.53 {INR} Normal [facility] Comment on above: Performed By: #### P T, PTT ####[facility] [address] [place], [place] [address]Dr. Emelina Navarro INR GUIDELINES SEE BELOW Normal [facility] Comment on above: Result Comment: WENDY RED INR: 2.0 - 3.0 CONDITIONS NOT LISTED BELOW 2.5 - 3.5 FOR PROSTHETIC HEART VALVE REPLACEMENT 2.5 - 3.5 RECURRENT THROMBOSIS Performed By: #### P T, PTT ####[facility] Cogzgvfidb[address] [place], [place] [address]Dr. Emelina Navarro PT Coag (PPP) [Time] 25.4 s Critically high 9.0-11.6 [facility] Comment on above: Performed By: #### P T, PTT ####[facility] K[address]cax[address] [place], [place] [address]Dr. Emelina Navarro PTTon 01-05-2023 aPTT Coag (Bld) [Time] 37.7 s Critically high 22.3-36.2 [facility] Comment on above: Performed By: #### P T, PTT ####[facility] Pbs[address]vsxkg[address] [place], [place] [address]Dr. Emelina Navarro TROPONIN, HIGH SENSITIVITYon 01-05-2023 HSTROP 52.4 pg/mL Normal 4.0-76.1 [facility] Comment on above: Result Comment: CUT- OFF POINTS HAVE BEEN ESTABLISHED BASED ON THE FOURTH UNIVERSAL DEFINITIONS OF MYOCARDIALINFARCTION. THE UPPER REFERENCE LIMIT (URL) OF TROPONIN, DEFINED THE 99TH PERCENTILE OFcTnI DISTRIBUTION IN A REFERENCE POPULATION, HAS BEEN CONFIRMED THE DECISION THRESHOLDFOR [place] DIAGNOSIS. Performed By: #### B STRAIGHT PIN MAKING MACHINE OPERATOR, BMP, HSTROPN ####[facility] L[address]uvzmgsb2[address] [place] [address]Dr. Emelina Navarro XR CHEST 1 Von 01-05-2023 XR CHEST 1 V Normal [facility] BNPon 01-02-2023 Natriuretic peptide B (Bld) [Mass/Vol] 5653.0 pg/mL Critically high <=900.0 [facility] Comment on above: Performed By: #### B STRAIGHT PIN MAKING MACHINE OPERATOR, BMP ####[facility] Pxlgwdsprw[address] [place], [place] [address]Dr. Emelina Navarro CBC AUTO DIFFon 01-02-2023 BASO # 0.0 103/ul Normal 0.0-0.1 [facility] Comment on above: Performed By: #### C BC ####[facility] [address]ujtjcfsi[address] [place], [place] [address]Dr. Emelina Navarro Basophils/100 WBC (Bld) 0.2 % Normal 0.2-2.0 [facility] Comment on above: Performed By: #### C BC ####[facility] Xzgvnhtsar[address] [place], [place] [address]Dr. Emelina Navarro EO # 0.3 103/ul Normal 0.0-0.7 [facility] Comment on above: Performed By: #### C BC ####[facility] Hjopatzlzc[address] [place], [place] [address]Dr. Emelina Ramon Eosinophils/100 WBC (Bld) 2.1 % Normal 0.9-7.0 [facility] Comment on above: Performed By: #### C BC ####[facility] Atc[address]ncd[address] [place], [place] [address]Dr. Emelina Navarro Erythrocyte distribution width (RBC) [Ratio] 17.9 % Critically high 11.0-15.0 [facility] Comment on above: Performed By: #### C BC ####[facility] [address]vel[address] [place] [address]Dr. Emelina Navarro Hematocrit (Bld) [Volume fraction] 42.1 % Normal 42.0-54.0 [facility] Comment on above: Performed By: #### C BC ####[facility] Vwvkztmkjj5[address] [place] [address]Dr. Emelina Navarro Hemoglobin (Bld) [Mass/Vol] 13.8 g/dL Critically low 14.0-18.0 [facility] Comment on above: Performed By: #### C BC ####[facility] Bakffsekoo[address] [place], [place] [address]Dr. Awiladnitza Navarro IG # 0.06 10e3/ul Critically high 0.00-0.03 [facility] Comment on above: Performed By: #### C BC ####[facility] [address]zlqox[address] [place], [place] [address]Dr. Awildanitza Navarro IG % 0.5 % Normal 0.0-0.5 [facility] Comment on above: Performed By: #### C BC ####[facility] Slallwvafi[address] [place], [place] [address]DrWesley Emelina Navarro LYMPH # 1.7 103/ul Normal 1.2-3.8 [facility] Comment on above: Performed By: #### C BC ####[facility] T[address]crp[address] [place], [place] [address]DrWesley Emelina Navarro Lymphocytes/100 WBC (Bld) 13.1 % Critically low 20.5-60.0 [facility] Comment on above: Performed By: #### C BC ####[facility] Oearctmbzd[address] [place], [place] [address]DrWesley Emelina Ramon MANUAL DIFF REQ NO Normal [facility] Comment on above: Performed By: #### C BC ####[facility] Gojwcbneev0[address] [place], [place] [address]DrWesley Navarro MCH (RBC) [Entitic mass] 28.9 pg Normal 25.9-34.0 [facility] Comment on above: Performed By: #### C BC ####[facility] Pkvsc[address]hu[address]63 [place] [address]Dr. Awildanitza Ramon MCHC (RBC) [Mass/Vol] 32.8 g/dL Normal 29.9-35.2 [facility] Comment on above: Performed By: #### C BC ####[facility] [address]jpeotqqrx[address] [place], [place] [address]DrWesley Navarro MCV (RBC) [Entitic vol] 88.3 fL Normal 80.0-94.0 [facility] Comment on above: Performed By: #### C BC ####[facility] Fumeoemrad[address] [place], [place] [address]DrWesley Navarro MONO # 0.7 103/ul Normal 0.3-0.8 [facility] Comment on above: Performed By: #### C BC ####[facility] Arnjmbihtm[address] [place], [place] [address]Dr. Emelina Navarro Monocytes/100 WBC (Bld) 5.3 % Normal 1.7-12.0 [facility] Comment on above: Performed By: #### C BC ####[facility] Dtazitaulh[address] [place], [place] [address]DrWesley Navarro NEUT # 10.1 103/ul Critically high 1.4-6.5 [facility] Comment on above: Performed By: #### C BC ####[facility] M[address]btqne[address] [place], [place] [address]DrWesley Navarro Neutrophils/100 WBC (Bld) 78.8 % Critically high 43.0-75.0 [facility] Comment on above: Performed By: #### C BC ####[facility] [address]fcutqznpj[address] [place], [place] [address]DrWesley Navarro Platelet mean volume (Bld) [Entitic vol] 10.8 fL Normal 9.5-13.5 [facility] Comment on above: Performed By: #### C BC ####[facility] [address]nsycblnk[address] [place], [place] [address]Dr. Emelina Navarro PLT 143 103/ul Critically low 150-450 [facility] Comment on above: Performed By: #### C BC ####[facility] Wugfnuahmh[address] [place] [address]Dr. Emelina Navarro RBC 4.77 106/ul Normal 4.70-6.10 [facility] Comment on above: Performed By: #### C BC ####[facility] Exszgekgwl4[address] [place] [id number]. Emelina Navarro WBC 12.8 103/ul Critically high 4.0-11.0 [facility] Comment on above: Performed By: #### C BC ####[facility] Opzsepsbyw[address] [place] [address]Dr. Emelina Ramon PROF CHEM 8 (BAS METB)on Anion gap [Moles/Vol] 12.2 mmol/L Normal [facility] Comment on above: Performed By: #### B STRAIGHT PIN MAKING MACHINE OPERATOR, BMP ####[facility] Cbgyrskybr26[address] [place] [address]Dr. Emelina Ramon Calcium [Mass/Vol] 8.6 mg/dL Normal 8.5-10.1 [facility] Comment on above: Performed By: #### B STRAIGHT PIN MAKING MACHINE OPERATOR, BMP ####[facility] Rokfpztmwz6[address] [place] [address]Dr. Emelina Ramon Chloride [Moles/Vol] 102 mmol/L Normal 98-107 [facility] Comment on above: Performed By: #### B STRAIGHT PIN MAKING MACHINE OPERATOR, BMP ####[facility] Jdtkuztpbb[address]21 [place] [address]Dr. Awildanitza Navarro CO2 [Moles/Vol] 26.4 mmol/L Normal 21.0-32.0 [facility] Comment on above: Performed By: #### B STRAIGHT PIN MAKING MACHINE OPERATOR, BMP ####[facility] Ixqogycovj20[address] [place] [address]Dr. Awildanitza Ramon Creatinine [Mass/Vol] 1.56 mg/dL Critically high 0.70-1.30 [facility] Comment on above: Performed By: #### B STRAIGHT PIN MAKING MACHINE OPERATOR, BMP ####[facility] Wrkpyogkhc6402 [place] [id number]. Emelina Navarro EGFR-AF SURINAMESE 54 mL/min/1.73m2 Critically low >=60 [facility] Comment on above: Performed By: #### B STRAIGHT PIN MAKING MACHINE OPERATOR, BMP ####[facility] [address] [place], [place] [address]Dr. Emelina Navarro EGFR-NON AF SURINAMESE 44 mL/min/1.73m2 Critically low >=60 [facility] Comment on above: Performed By: #### B STRAIGHT PIN MAKING MACHINE OPERATOR, BMP ####[facility] Ecdjzbzagw4414 [place] [id number]. Emelina Navarro Glucose [Mass/Vol] 211 mg/dL Critically high 74-106 [facility] Comment on above: Performed By: #### B STRAIGHT PIN MAKING MACHINE OPERATOR, BMP ####[facility] Qombawdiww[address] [place], [place] [address]Dr. Emelina Navarro Potassium [Moles/Vol] 3.6 mmol/L Normal 3.5-5.1 [facility] Comment on above: Performed By: #### B STRAIGHT PIN MAKING MACHINE OPERATOR, BMP ####[facility] Qmpfviplcy[address] [place], [place] [address]Dr. Emelina Navarro Sodium [Moles/Vol] 137 mmol/L Normal 136-145 [facility] Comment on above: Performed By: #### B STRAIGHT PIN MAKING MACHINE OPERATOR, BMP ####[facility] Ivbmwqsjsz8[address] [place], [place] [address]Dr. Awildanitza Navarro Urea nitrogen [Mass/Vol] 42.0 mg/dL Critically high 7.0-18.0 [facility] Comment on above: Performed By: #### B STRAIGHT PIN MAKING MACHINE OPERATOR, BMP ####[facility] Tfnmxxqyka[address] [place], [place] [address]Dr. Emelina Navarro Urea nitrogen/Creatinine [Mass ratio] 26.9 mg/mg Normal [facility] Comment on above: Performed By: #### B STRAIGHT PIN MAKING MACHINE OPERATOR, BMP ####[facility] Qbgikkaoaf[address] [place], [place] [address]Dr. Emelina Navarro Anion gap [Moles/Vol] 12.3 mmol/L Normal [facility] Comment on above: Performed By: #### B MP ####[facility] Wchxkpyayi7[address] [place] [address]Dr. Emelina Navarro Calcium [Mass/Vol] 8.4 mg/dL Critically low 8.5-10.1 [facility] Comment on above: Performed By: #### B MP ####[facility] Raeytwgdmq2661 [place] [address]Dr. Emelina Navarro Chloride [Moles/Vol] 101 mmol/L Normal 98-107 [facility] Comment on above: Performed By: #### B MP ####[facility] Ikjkkdmafo8026 [place] [address]Dr. Emelina Navarro CO2 [Moles/Vol] 27.4 mmol/L Normal 21.0-32.0 [facility] Comment on above: Performed By: #### B MP ####[facility] Inxhgckqik06[address] [place], [place] [address]Dr. Emelina Navarro Creatinine [Mass/Vol] 1.54 mg/dL Critically high 0.70-1.30 [facility] Comment on above: Performed By: #### B MP ####[facility] [address]vjoxmi[address] [place], [place] [address]Dr. Emelina Ramon EGFR-AF SURINAMESE 55 mL/min/1.73m2 Critically low >=60 [facility] Comment on above: Performed By: #### B MP ####[facility] Egxxsjdvxx[address] [place], [place] [address]Dr. Emelina Ramon EGFR-NON AF SURINAMESE 45 mL/min/1.73m2 Critically low >=60 [facility] Comment on above: Performed By: #### B MP ####[facility] Xumwwspkgu[address] [place], [place] [address]Dr. Emelina Navarro Glucose [Mass/Vol] 115 mg/dL Critically high 74-106 [facility] Comment on above: Performed By: #### B MP ####[facility] [address]jpvuljnv[address] [place], [place] [address]Dr. Emelina Navarro Potassium [Moles/Vol] 3.7 mmol/L Normal 3.5-5.1 [facility] Comment on above: Performed By: #### B MP ####[facility] Jbqaoxdkif5836 [place] [id number]. Emelina Navarro Sodium [Moles/Vol] 137 mmol/L Normal 136-145 [facility] Comment on above: Performed By: #### B MP ####[facility] Koebcmmigs7595 [place] [id number]. Emelina Navarro Urea nitrogen [Mass/Vol] 40.0 mg/dL Critically high 7.0-18.0 [facility] Comment on above: Performed By: #### B MP ####[facility] Zdsvelmkxt0224 [place] [id number]. Awildanitza Ramon Urea nitrogen/Creatinine [Mass ratio] 26.0 mg/mg Normal [facility] Comment on above: Performed By: #### B MP ####[facility] Zaxssirakn6254 [place] [id number]. Emelina Ramon XR CHEST 1 Von 01-02-2023 XR CHEST 1 V Normal [facility] BNPon 12-26-2022 Natriuretic peptide B (Bld) [Mass/Vol] 9102.0 pg/mL Critically high <=900.0 [facility] Comment on above: Performed By: #### B STRAIGHT PIN MAKING MACHINE OPERATOR ####[facility] K[address]wxkvdkk35[address] [place] [address]Dr. Emelnia Ramon Office Visiton 12-26-2022 Follow-up visit [id number] Adwoa Porter 1955 M Date Provider Department Center 12/26/2022 MASSIMO DYE [facility] Family History Problem Relation Age of Onset Diabetes Mother Hypertension Mother Coronary artery disease Mother Family Status - Relation Status Age at Mother Level of Service:[address]885 [place] OFFICE/OUTPATIENT ESTABLISHED MOD MDM 30-39 MIN Reason for Visit and Comments: Congestive Heart Failure [127] Normal [facility] PROF CHEM 8 (BAS METB)on Anion gap [Moles/Vol] 14.4 mmol/L Normal [facility] Comment on above: Performed By: #### B MP ####[facility] Cnezhzdunk[address] [place] [address]Dr. Emelina Navarro Calcium [Mass/Vol] 8.6 mg/dL Normal 8.5-10.1 [facility] Comment on above: Performed By: #### B MP ####[facility] Zpgdkthahi[address] [place], [place] [address]Dr. Emelina Navarro Chloride [Moles/Vol] 101 mmol/L Normal 98-107 [facility] Comment on above: Performed By: #### B MP ####[facility] [address]zfxognwhx[address] [place], [place] [address]Dr. Emelina Navarro CO2 [Moles/Vol] 27.2 mmol/L Normal 21.0-32.0 [facility] Comment on above: Performed By: #### B MP ####[facility] Ynsuvvwkjo[address] [place], [place] [address]Dr. Emelina Navarro Creatinine [Mass/Vol] 1.69 mg/dL Critically high 0.70-1.30 [facility] Comment on above: Performed By: #### B MP ####[facility] Gaztbdivcy[address] [place], [place] [address]Dr. Emelina Navarro EGFR-AF SURINAMESE 49 mL/min/1.73m2 Critically low >=60 [facility] Comment on above: Performed By: #### B MP ####[facility] Jbzaukalty[address] [place], [place] [address]Dr. Emelnia Navarro EGFR-NON AF SURINAMESE 41 mL/min/1.73m2 Critically low >=60 [facility] Comment on above: Performed By: #### B MP ####[facility] X[address]mmjceba[address] [place], [place] [address]Dr. Emelina Navarro Glucose [Mass/Vol] 163 mg/dL Critically high 74-106 [facility] Comment on above: Performed By: #### B MP ####[facility] [address]zwstpkdb[address] [place], [place] [address]Dr. Emelina Navarro Potassium [Moles/Vol] 3.6 mmol/L Normal 3.5-5.1 [facility] Comment on above: Performed By: #### B MP ####[facility] Wmcgtundnx0288 [place], [place] [address]Oy. Emelina Navarro Sodium [Moles/Vol] 139 mmol/L Normal 136-145 [facility] Comment on above: Performed By: #### B MP ####[facility] Zasmeelbrp5937 [place], [place] [address]Uq. Emelina Navarro Urea nitrogen [Mass/Vol] 36.0 mg/dL Critically high 7.0-18.0 [facility] Comment on above: Performed By: #### B MP ####[facility] [address]av[address]by[address] [place], [place] [address]Uk. Emelina Navarro Urea nitrogen/Creatinine [Mass ratio] 21.3 mg/mg Normal [facility] Comment on above: Performed By: #### B MP ####[facility] [address]jrhyrc36[address] [place], [place] [address]Io. Emelina Navarro 37on 12-11-2022 37 I refilled your bume x. I talked to you about starting a medicine called Entresto. I decided NOT to start this after I saw your labs 11/14/22 with kidney function a bit worse than when you left the hospital 11/11/22. It has been about a month and would like to recheck the kidney function to see how it is trending. Enclosed is a lab slip to take in and have labs done in the next 2 weeks or so. Okay to eat beforehand. Also, I asked the cardiac rehab therapy office to call you about starting cardiac rehabilitation exercises which is as helpful as any pill you can take to keep your heart as strong as possible. This would be at the [facility] physical therapy department. Check your weights every morning in underwear before eating or drinking. Write it down and bring to all of your doctor appointments. If weight is up 2lbs in 1 day or 5lbs in 1 week, this means you are retaining fluid. If this happens: --Take 1/2 tablet of your Bumex 2mg tablet for 2-3 days until weight drifts back to usual. This additional dose can be at same time as your usual diuretic water pill . -Call the cardiology nurse at [phone] Check your blood pressure and pulse daily and write it down. Bring your list of BP and pulse and weights to all doctor visits. --Best time to take BP is 4-6 hours after morning medications. Be relaxed and sitting down at rest for 5 minutes with feet flat on floor, before checking your BP --Goal BP: top number below 130 and bottom number below 80 --If your blood pressure top number is lower than 90 or your pulse stays below 55, you may feel tired and dizzy. Call the office for advice if this happens. --If you are not sure if your BP machine is reading correctly, take to your PCP office or bring to your to your cardiology office to be checked. For leg swelling, you may feel better wearing medium intensity (15-20mmHg) support stockings/socks. These can be found at [employer], or can be ordered from the Internet. My office will call you to schedule another appointment in about 4 weeks. This can be by phone or in the office. Kind regards, JOHAN Anderson [facility] office: [phone] [place] office: [phone] Normal [facility] Office Visiton 12-11-2022 Follow-up visit [id number] Adwoa Porter 1955 M Date Provider Department Center 12/11/2022 [id number] [facility] Family History Problem Relation Age of Onset Diabetes Mother Hypertension Mother Coronary artery disease Mother Family Status - Relation Status Age at Mother Level of Service:77088 [place] OFFICE/OUTPATIENT ESTABLISHED [facility] 10-19 MIN Reason for Visit and Comments: Congestive Heart Failure [127] Normal [facility] Albumin [Mass/volume] in Ser um or PlasmaOrdered By: Ethan Cummings on 12-02-2022 Albumin [Mass/Vol] 3.9 g/dL 3.2-5.5 [facility] Basophils Auto (Bld) [#/Vol] Ordered By: Ethan Cummings on 12-02-2022 Basophils (Bld) [#/Vol] 0.1 10*3/uL 0.0-0.2 [facility] Basophils/100 WBC Auto (Bld) Ordered By: Ethan Cummings on 12-02-2022 Basophils/100 WBC (Bld) 0.7 % . [facility] CT biopsyOrdered By: Ehtan Cummings on 12-02-2022 Transferrin [Mass/Vol] 240 mg/dL 180-380 [facility] Creatinine and Glomerular fi ltration rate.predicted panel (S/P/Bld)Ordered By: Ethan Cummings on 12-02-2022 Creatinine [Mass/Vol] 1.58 mg/dL 0.64-1.27 [facility] Eosinophils Auto (Bld) [#/Vo l]Ordered By: Ethan Cummings on 12-02-2022 Eosinophils (Bld) [#/Vol] 0.4 10*3/uL 0.0-0.45 [facility] Eosinophils/100 WBC Auto (Bl d)Ordered By: Ethan Cmumings on 12-02-2022 Eosinophils/100 WBC (Bld) 3.5 % . [facility] Erythrocyte distribution wid th Auto (RBC) [Ratio]Ordered By: Ethan Cummings on 12-02-2022 Erythrocyte distribution width (RBC) [Ratio] 19.6 % 12.0-14.8 [facility] Estimated glomerular filtrat ion rate (GFR) non- AmericanOrdered By: Ethan Cummings on 12-02-2022 GFR/1.73 sq M.predicted among non-blacks MDRD (S/P/Bld) [Vol rate/Area] 44 mL/Min [facility] Ferritin [Mass/volume] in Se rum or PlasmaOrdered By: Ethan Cummings on 12-02-2022 Ferritin [Mass/Vol] 85.7 ng/mL 23.9-336.2 [facility] Folate [Mass/volume] in Seru m or PlasmaOrdered By: Ethan Cummings on 12-02-2022 Folate [Mass/Vol] ng/mL >5.9 [facility] Comment on above: Folate reference ran ge: >5.9 ng/mlThe WHO technical consultation on folate and vitamin [id number] has determined that folate concentrations lessthan 4 ng/ml are considered deficient. Globulin Calc (S) [Mass/Vol] Ordered By: Ethan Cummings on 12-02-2022 Globulin (S) [Mass/Vol] 3.7 g/dL [facility] Hematocrit Auto (Bld) [Volum e fraction]Ordered By: Ethan Cummings on 12-02-2022 Hematocrit (Bld) [Volume fraction] 47.4 % 38.8-50.0 [facility] Hemoglobin [Mass/volume] in BloodOrdered By: Ethan Cummings on 12-02-2022 Hemoglobin (Bld) [Mass/Vol] 15.3 g/dL 13.0-17.0 [facility] Iron [Mass/volume] in Serum or PlasmaOrdered By: Ethan Cummings on 12-02-2022 Iron [Mass/Vol] 96 ug/dL 40-160 [facility] Iron binding capacity [Mass/ volume] in Serum or PlasmaOrdered By: Ethan Cummings on 12-02-2022 Iron binding capacity [Mass/Vol] 336 ug/dL 255-450 [facility] Iron saturation [Mass Fracti on] in Serum or PlasmaOrdered By: Ethan Cummings on 12-02-2022 Iron saturation [Mass fraction] 28.6 % 20-50 [facility] Laboratory - Chemistry and C hemistry - challengeOrdered By: Ethan Cummings on 12-02-2022 Cobalamin (Vitamin B12) [Mass/Vol] 1521 pg/mL 180-914 [facility] Leukocytes [#/volume] correc morris for nucleated erythrocytes in Blood by Automated counOrdered By: Ethan Cummings on 12-02-2022 WBC corrected for nucl RBC Auto (Bld) [#/Vol] 11.8 10*3/uL 4.1-10.5 [facility] Lymphocytes Auto (Bld) [#/Vo l]Ordered By: Ethan Cummings on 12-02-2022 Lymphocytes (Bld) [#/Vol] 2.4 10*3/uL 1.00-4.8 [facility] Lymphocytes/100 WBC Auto (Bl d)Ordered By: Ethan Cummings on 12-02-2022 Lymphocytes/100 WBC (Bld) 20.5 % . [facility] MCH Auto (RBC) [Entitic mass ]Ordered By: Ethan Cummings on 12-02-2022 MCH (RBC) [Entitic mass] 28.3 pg 27.5-35.2 [facility] MCHC Auto (RBC) [Mass/Vol]Or dered By: Ethan Cummings on 12-02-2022 MCHC (RBC) [Mass/Vol] 32.3 g/dL 32.5-35.6 [facility] MCV Auto (RBC) [Entitic vol] Ordered By: Ethan Cummings on 12-02-2022 MCV (RBC) [Entitic vol] 87.5 fL 83.5-101 [facility] Monocytes Auto (Bld) [#/Vol] Ordered By: Ethan Cummings on 12-02-2022 Monocytes (Bld) [#/Vol] 1.0 10*3/uL 0.0-0.8 [facility] Monocytes/100 WBC Auto (Bld) Ordered By: Ethan Cummings on 12-02-2022 Monocytes/100 WBC (Bld) 8.2 % . [facility] Neutrophils Auto (Bld) [#/Vo l]Ordered By: Ethan Cummings on 12-02-2022 Neutrophils (Bld) [#/Vol] 7.9 10*3/uL 1.8-7.7 [facility] Neutrophils/100 WBC Auto (Bl d)Ordered By: Ethan Cummings on 12-02-2022 Neutrophils/100 WBC (Bld) 67.1 % . [facility] No Panel InformationOrdered By: Ethan Cummings on 12-02-2022 Estimated GFR () 53 mL/Min [facility] Comment on above: GFR estimated refere nce range: According to KDOQI guidelines, <60 ml/min/1.73m2 is sufficient to diagnose a patient with chronic kidney disease. Pharmacy Creatinine Clearance (Chem 53.88 [facility] Nucleated erythrocytes [Pres ence] in Blood by Automated countOrdered By: Ethan Cummings on 12-02-2022 Nucleated RBC Auto Ql (Bld) 0.1 /100{WBC} 0-0.5 [facility] Platelet mean volume Auto (B ld) [Entitic vol]Ordered By: Ethan Cummings on 12-02-2022 Platelet mean volume (Bld) [Entitic vol] 8.5 fL 6.6-10.1 [facility] Platelets Auto (Bld) [#/Vol] Ordered By: Ethan Cummings on 12-02-2022 Platelets (Bld) [#/Vol] 214 10*3/uL 150-450 [facility] Protein [Mass/volume] in Ser um or PlasmaOrdered By: Ethan Cummings on 12-02-2022 Protein [Mass/Vol] 7.6 g/dL 6.1-7.9 [facility] RBC Auto (Bld) [#/Vol]Ordere d By: Ethan Cummings on 12-02-2022 RBC (Bld) [#/Vol] 5.41 10*6/uL 3.90-5.60 [facility] Serum or plasma alanine valle otransferase measurement without P-5'-P (enzymatic activiOrdered By: Ethan Cummings on 12-02-2022 ALT No additional P-5'-P [Catalytic activity/Vol] 19 U/L 10-60 [facility] Serum or plasma albumin/glob ulin mass ratioOrdered By: Ethan Cummings on 12-02-2022 Albumin/Globulin [Mass ratio] 1.1 {ratio} [facility] Serum or plasma alkaline tosin sphatase measurement (enzymatic activity/volume)Ordered By: Ethan Cummings on 12-02-2022 ALP [Catalytic activity/Vol] 101 U/L 32-92 [facility] Serum or plasma anion gap de terminationOrdered By: Ethan Cummings on 12-02-2022 Anion gap [Moles/Vol] 13.2 mmol/L 6.0-15.0 [facility] Serum or plasma aspartate am inotransferase measurement (enzymatic activity/volume)Ordered By: Ethan Cummings on 12-02-2022 AST [Catalytic activity/Vol] 32 U/L 10-42 [facility] Serum or plasma calcium mike urement (mass/volume)Ordered By: Ethan Cummings on 12-02-2022 Calcium [Mass/Vol] 9.5 mg/dL 8.2-10.2 [facility] Serum or plasma chloride arash surement (moles/volume)Ordered By: Ethan Cummings on 12-02-2022 Chloride [Moles/Vol] 101 mmol/L 95-114 [facility] Serum or plasma glucose mike urement (mass/volume)Ordered By: Ethan Cummings on 12-02-2022 Glucose [Mass/Vol] 150 mg/dL 70-100 [facility] Comment on above: ADA recommended refe rence rangeRandom Glucose Reference Range is dependent on time and content of last meal. Glucose of more than 200 mg/dL in a nonstressed, ambulatory subject supports the diagnosis of Diabetes Mellitus. Serum or plasma potassium me asurement (moles/volume)Ordered By: Ethan Cummings on 12-02-2022 Potassium [Moles/Vol] 4.3 mmol/L 3.5-5.1 [facility] Serum or plasma sodium measu rement (moles/volume)Ordered By: Ethan Cummings on 12-02-2022 Sodium [Moles/Vol] 140 mmol/L 136-146 [facility] Serum or plasma total biliru bin measurement (mass/volume)Ordered By: Ethan Cummings on 12-02-2022 Bilirubin [Mass/Vol] 1.5 mg/dL 0.3-1.2 [facility] Comment on above: Samples from patient s who have taken Naproxen have shown spurious elevation in Total Bilirubin levels. A metabolite of Naproxen, O-desmethylnaproxen, has been shown to interfere with the Jesi-Ananya method for measuring Total Bilirubin. Serum or plasma total carbon dioxide measurement (moles/volume)Ordered By: Ethan Cummings on 12-02-2022 CO2 [Moles/Vol] 30.1 mmol/L 22.0-30.0 [facility] Serum or plasma urea nitroge n measurement (mass/volume)Ordered By: Ethan Cummings on 12-02-2022 Urea nitrogen [Mass/Vol] 22 mg/dL 9-23 [facility] WBC Auto (Bld) [#/Vol]Ordere d By: Ethan Cummings on 12-02-2022 WBC (Bld) [#/Vol] 11.8 10*3/uL 4.1-10.5 [facility] Office Visiton 12-01-2022 Follow-up visit [id number] Adwoa Proter Elciia 1955 M Date Provider Department Center 12/01/2022 [facility] Family History Problem Relation Age of Onset Diabetes Mother Hypertension Mother Coronary artery disease Mother Family Status - Relation Status Age at Mother Level of Service:[address] [place] OFFICE/OUTPATIENT ESTABLISHED LOW MDM 20-29 MIN Normal [facility] PROF CHEM 8 (BAS METB)on Anion gap [Moles/Vol] 12.6 mmol/L Normal [facility] Comment on above: Performed By: #### B MP ####[facility] [address] [place] [address]Dr. Emelina Navarro Calcium [Mass/Vol] 9.0 mg/dL Normal 8.5-10.1 [facility] Comment on above: Performed By: #### B MP ####[facility] [address] [place] [address]Dr. Emelina Navarro Chloride [Moles/Vol] 99 mmol/L Normal 98-107 [facility] Comment on above: Performed By: #### B MP ####[facility] T[address]ft[address] [place] [address]Dr. Emelina Navarro CO2 [Moles/Vol] 33.2 mmol/L Critically high 21.0-32.0 [facility] Comment on above: Performed By: #### B MP ####[facility] [address] [place] [address]Dr. Emelina Navarro Creatinine [Mass/Vol] 1.75 mg/dL Critically high 0.70-1.30 [facility] Comment on above: Performed By: #### B MP ####[facility] [address] [place] [address]Dr. Emelina Navarro EGFR-AF SURINAMESE 47 mL/min/1.73m2 Critically low >=60 [facility] Comment on above: Performed By: #### B MP ####[facility] [address]rmp26[address] [place] [address]Dr. Emelina Navarro EGFR-NON AF SURINAMESE 39 mL/min/1.73m2 Critically low >=60 [facility] Comment on above: Performed By: #### B MP ####[facility] [address]xvswubtcq[address] [place] [address]Dr. Emelina Navarro Glucose [Mass/Vol] 132 mg/dL Critically high 74-106 [facility] Comment on above: Performed By: #### B MP ####[facility] Kraiukaunw[address] [place] [address]Dr. Emelina Navarro Potassium [Moles/Vol] 3.8 mmol/L Normal 3.5-5.1 [facility] Comment on above: Performed By: #### B MP ####[facility] Qab[address]axqfb0178 [place] [address]Dr. Emelina Navarro Sodium [Moles/Vol] 141 mmol/L Normal 136-145 [facility] Comment on above: Performed By: #### B MP ####[facility] Trkchuwzbq2303 [place] [address]Dr. Emelina Navarro Urea nitrogen [Mass/Vol] 22.0 mg/dL Critically high 7.0-18.0 [facility] Comment on above: Performed By: #### B MP ####[facility] F[address]mt[address]ywk6[address] [place] [address]Dr. Emelina Navarro Urea nitrogen/Creatinine [Mass ratio] 12.6 mg/mg Normal [facility] Comment on above: Performed By: #### B MP ####[facility] Zjg[address]uqtey38[address] [place] [address]Dr. Emelina Navarro A1C HEMOGLOBINon 11-07-2022 HbA1c (Bld) [Mass fraction] 7.4 % [facility] Other Glucose - FINGER STICKon Glucose [Mass/Vol] 109 mg/dL [facility] Other HbA1c (Bld) [Mass fraction]o n 11-07-2022 [facility] CHEM 8 (BAS METB)on 12- 09-2022 Anion gap [Moles/Vol] 12.2 mmol/L Normal [facility] Comment on above: Performed By: #### B MP ####[facility] [address]qi[address] [place] [address]Dr. Emelina Navarro Calcium [Mass/Vol] 8.7 mg/dL Normal 8.5-10.1 [facility] Comment on above: Performed By: #### B MP ####[facility] Annjipdlxu[address] [place] [address]Dr. Emelina Navarro Chloride [Moles/Vol] 101 mmol/L Normal 98-107 [facility] Comment on above: Performed By: #### B MP ####[facility] [address] [place], [place] [address]Dr. Emelina Navarro CO2 [Moles/Vol] 29.9 mmol/L Normal 21.0-32.0 [facility] Comment on above: Performed By: #### B MP ####[facility] [address] [place], [place] [address]Dr. Emelina Navarro Creatinine [Mass/Vol] 1.78 mg/dL Critically high 0.70-1.30 [facility] Comment on above: Performed By: #### B MP ####[facility] [address] [place], [place] [address]Dr. Emelina Navarro EGFR-AF SURINAMESE 46 mL/min/1.73m2 Critically low >=60 [facility] Comment on above: Performed By: #### B MP ####[facility] [address] [place], [place] [address]Dr. Emelina Navarro EGFR-NON AF SURINAMESE 38 mL/min/1.73m2 Critically low >=60 [facility] Comment on above: Performed By: #### B MP ####[facility] [address]fsf[address] [place], [place] [address]Dr. Emelina Navarro Glucose [Mass/Vol] 127 mg/dL Critically high 74-106 [facility] Comment on above: Performed By: #### B MP ####[facility] M[address]xl[address] [place], [place] [address]Dr. Emelina Navarro Potassium [Moles/Vol] 4.1 mmol/L Normal 3.5-5.1 [facility] Comment on above: Performed By: #### B MP ####[facility] [address] [place] [address]Dr. Emelina Navarro Sodium [Moles/Vol] 139 mmol/L Normal 136-145 [facility] Comment on above: Performed By: #### B MP ####[facility] G[address]rvgqfs6035 [place] [address]Dr. Emelina Navarro Urea nitrogen [Mass/Vol] 39.0 mg/dL Critically high 7.0-18.0 [facility] Comment on above: Performed By: #### B MP ####[facility] [address]oh[address] [place], [place] [address]Dr. Emelina Navarro Urea nitrogen/Creatinine [Mass ratio] 21.9 mg/mg Normal [facility] Comment on above: Performed By: #### B MP ####[facility] Laljchatyo[address] [place], [place] [address]Dr. Emelina Navarro BNPon 10-03-2022 Natriuretic peptide B (Bld) [Mass/Vol] 7092.0 pg/mL Critically high <=900.0 [facility] Comment on above: Performed By: #### H STROPN, BNP, CMP ####[facility] [address]wk[address] [place], [place] [address]Dr. Emelina Navarro CBC AUTO DIFFon 10-03-2022 BASO # 0.0 103/ul Normal 0.0-0.1 [facility] Comment on above: Performed By: #### C BC ####[facility] Q[address]uh[address]zyi[address] [place], [place] [address]Dr. Emelina Ramon Basophils/100 WBC (Bld) 0.3 % Normal 0.2-2.0 [facility] Comment on above: Performed By: #### C BC ####[facility] [address] [place], [place] [address]Dr. Emelina Navarro EO # 0.3 103/ul Normal 0.0-0.7 [facility] Comment on above: Performed By: #### C BC ####[facility] [address]ht[address] [place] [id number]. Emelina Navarro Eosinophils/100 WBC (Bld) 2.5 % Normal 0.9-7.0 [facility] Comment on above: Performed By: #### C BC ####[facility] Rxmfvgcsgc9370 [place] [id number]. Emelina Navarro Erythrocyte distribution width (RBC) [Ratio] 16.1 % Critically high 11.0-15.0 [facility] Comment on above: Performed By: #### C BC ####[facility] Trskmppeih3691 [place] [address]Dr. Emelina Navarro Hematocrit (Bld) [Volume fraction] 40.4 % Critically low 42.0-54.0 [facility] Comment on above: Performed By: #### C BC ####[facility] Kptisfsm[address] [place], [place] [address]Dr. Emelina Navarro Hemoglobin (Bld) [Mass/Vol] 12.9 g/dL Critically low 14.0-18.0 [facility] Comment on above: Performed By: #### C BC ####[facility] [address] [place], [place] [address]Dr. Emelina Navarro IG # 0.05 10e3/ul Critically high 0.00-0.03 [facility] Comment on above: Performed By: #### C BC ####[facility] [address] [place], [place] [address]Dr. Emelina Navarro IG % 0.4 % Normal 0.0-0.5 [facility] Comment on above: Performed By: #### C BC ####[facility] [address]xjvbo[address] [place], [place] [address]Dr. Emelina Navarro LYMPH # 1.5 103/ul Normal 1.2-3.8 [facility] Comment on above: Performed By: #### C BC ####[facility] [address]owj[address] [place], [place] [address]Dr. Emelina Navarro Lymphocytes/100 WBC (Bld) 13.1 % Critically low 20.5-60.0 [facility] Comment on above: Performed By: #### C BC ####[facility] Nmjzlsmpig44[address] [place] [id number]. Emelina Navarro MANUAL DIFF REQ NO Normal [facility] Comment on above: Performed By: #### C BC ####[facility] Eztgz[address]hrm4735 [place] [id number]. Emelina Navarro MCH (RBC) [Entitic mass] 28.9 pg Normal 25.9-34.0 [facility] Comment on above: Performed By: #### C BC ####[facility] [address] [place], [place] [id number]. Emelina Navarro MCHC (RBC) [Mass/Vol] 31.9 g/dL Normal 29.9-35.2 [facility] Comment on above: Performed By: #### C BC ####[facility] [address] [place], [place] [address]Dr. Emelina Navaror MCV (RBC) [Entitic vol] 90.6 fL Normal 80.0-94.0 [facility] Comment on above: Performed By: #### C BC ####[facility] [address] [place], [place] [id number]. Emelina Ramon MONO # 0.8 103/ul Normal 0.3-0.8 [facility] Comment on above: Performed By: #### C BC ####[facility] [address]urecrja[address] [place], [place] [address]Dr. Emelina Navarro Monocytes/100 WBC (Bld) 7.0 % Normal 1.7-12.0 [facility] Comment on above: Performed By: #### C BC ####[facility] Y[address]fr[address] [place], [place] [address]Dr. Awildanitza Navarro NEUT # 8.8 103/ul Critically high 1.4-6.5 [facility] Comment on above: Performed By: #### C BC ####[facility] [address]qcvj[address] [place], [place] [address]Dr. Emelina Navarro Neutrophils/100 WBC (Bld) 76.7 % Critically high 43.0-75.0 [facility] Comment on above: Performed By: #### C BC ####[facility] [address]yt[address] [place], [place] [address]Cu. Emelina Navarro Platelet mean volume (Bld) [Entitic vol] 9.9 fL Normal 9.5-13.5 [facility] Comment on above: Performed By: #### C BC ####[facility] [address]zk[address] [place], [place] [address]Hy. Emelina Navarro PLT 201 103/ul Normal 150-450 [facility] Comment on above: Performed By: #### C BC ####[facility] Blpvfuqkbs7552 [place], [place] [address]Be. Emelina Navarro RBC 4.46 106/ul Critically low 4.70-6.10 [facility] Comment on above: Performed By: #### C BC ####[facility] Etycatfuco9462 [place], [place] [address]Hh. Emelina Navarro WBC 11.4 103/ul Critically high 4.0-11.0 [facility] Comment on above: Performed By: #### C BC ####[facility] [address]qsozhiwk9267 [place], [place] [address]Th. Emelina Navarro Covid-19 PCR ([facility])on 09-19 SARS-CoV-2 (COVID-19) RNA RADHA+probe Ql (Unsp spec) Not detected Normal NOT DETECTED [facility] Comment on above: Result Comment: When diagnostic [...] for this test is supported by the [employer] of Health and Human Service's declaration that [...] be used). Performed By: #### C VDTBH ####[facility] [address]vt[address] [place] [address]Dr. Emelina Navarro PROF 14(COMP METB)on 022 Albumin [Mass/Vol] 3.1 g/dL Critically low 3.4-5.0 [facility] Comment on above: Performed By: #### H STROPN, BNP, CMP ####[facility] [address]ns[address] [place] [address]Dr. Emelina Navarro Albumin/Globulin [Mass ratio] 0.8 {ratio} Normal [facility] Comment on above: Performed By: #### H GLORIA, BNP, CMP ####[facility] [address]hfxt[address]pxsj[address] [place] [address]Dr. Emelina Navarro ALP [Catalytic activity/Vol] 118 U/L Critically high 46-116 [facility] Comment on above: Performed By: #### H STROROSE MARY, BNP, CMP ####[facility] [address]svgruzd26[address] [place] [address]Dr. Emelina Navarro ALT [Catalytic activity/Vol] 22 U/L Normal 16-63 [facility] Comment on above: Performed By: #### H STROROSE MARY, BNP, CMP ####[facility] [address]wmjtetclr7[address] [place] [address]Dr. Emelina Navarro Anion gap [Moles/Vol] 8.6 mmol/L Normal [facility] Comment on above: Performed By: #### H STROPN, BNP, CMP ####[facility] [address]egpnqy[address] [place] [address]Dr. Emelina Navarro AST [Catalytic activity/Vol] 23 U/L Normal 15-37 [facility] Comment on above: Performed By: #### H STROPN, BNP, CMP ####[facility] [address]ukqsm4[address] [place] [address]Dr. Emelina Navarro Bilirubin [Mass/Vol] 1.0 mg/dL Normal 0.2-1.0 [facility] Comment on above: Performed By: #### H STROPN, BNP, CMP ####[facility] Cpzerdzrgn4042 [place] [address]Dr. Emelina Navarro Calcium [Mass/Vol] 8.4 mg/dL Critically low 8.5-10.1 [facility] Comment on above: Performed By: #### H STROPN, BNP, CMP ####[facility] Mlfwsqkoiu29[address] [place] [address]Dr. Emelina Navarro Chloride [Moles/Vol] 101 mmol/L Normal 98-107 [facility] Comment on above: Performed By: #### H STROPN, BNP, CMP ####[facility] [address]kllcqsjx1988 [place] [address]Dr. Emelina Navarro CO2 [Moles/Vol] 33.3 mmol/L Critically high 21.0-32.0 [facility] Comment on above: Performed By: #### H STROPN, BNP, CMP ####[facility] [address] [place], [place] [address]Dr. Emelina Navarro Creatinine [Mass/Vol] 1.52 mg/dL Critically high 0.70-1.30 [facility] Comment on above: Performed By: #### H STROPN, BNP, CMP ####[facility] [address]prpr[address] [place], [place] [address]Dr. Emelina Navarro EGFR-AF SURINAMESE 56 mL/min/1.73m2 Critically low >=60 [facility] Comment on above: Performed By: #### H STROPN, BNP, CMP ####[facility] [address]sl[address] [place], [place] [address]Dr. Emelina Navarro EGFR-NON AF SURINAMESE 46 mL/min/1.73m2 Critically low >=60 [facility] Comment on above: Performed By: #### H STROPN, BNP, CMP ####[facility] Dhliymaxbv6648 [place] [address]Dr. Emelina Navarro Globulin (S) [Mass/Vol] 4.1 g/dL Normal [facility] Comment on above: Performed By: #### H STROPN, BNP, CMP ####[facility] [address]tin[address] [place], [place] [address]Dr. Emelina Navarro Glucose [Mass/Vol] 141 mg/dL Critically high 74-106 [facility] Comment on above: Performed By: #### H STROPN, BNP, CMP ####[facility] [address]nbmuznl47[address] [place] [address]Dr. Emelina Navarro Potassium [Moles/Vol] 3.9 mmol/L Normal 3.5-5.1 [facility] Comment on above: Performed By: #### H STROPN, BNP, CMP ####[facility] [address]ufvhvvqj4[address] [place] [address]Dr. Emelina Navarro Protein [Mass/Vol] 7.2 g/dL Normal 6.4-8.2 [facility] Comment on above: Performed By: #### H STROPN, BNP, CMP ####[facility] [address]usmxexq38[address] [place] [address]Dr. Emelina Navarro Sodium [Moles/Vol] 139 mmol/L Normal 136-145 [facility] Comment on above: Performed By: #### H STROPN, BNP, CMP ####[facility] [address]ofvjesg[address] [place] [address]Dr. Emelina Navarro Urea nitrogen [Mass/Vol] 26.0 mg/dL Critically high 7.0-18.0 [facility] Comment on above: Performed By: #### H STROPN, BNP, CMP ####[facility] [address] [place] [address]Dr. Emelina Navarro Urea nitrogen/Creatinine [Mass ratio] 17.1 mg/mg Normal [facility] Comment on above: Performed By: #### H STROPN, BNP, CMP ####[facility] Racmakekty[address] [place] [address]Dr. Emelina Navarro PROTIMEon 10-03-2022 INR Coag (PPP) [Relative time] 1.76 {INR} Normal [facility] Comment on above: Performed By: #### P T, PTT ####[facility] [address]xnb[address]rx[address] [place] [address]Dr. Emelina Navarro INR GUIDELINES SEE BELOW Normal [facility] Comment on above: Result Comment: WENDY RED INR: 2.0 - 3.0 CONDITIONS NOT LISTED BELOW 2.5 - 3.5 FOR PROSTHETIC HEART VALVE REPLACEMENT 2.5 - 3.5 RECURRENT THROMBOSIS Performed By: #### P T, PTT ####[facility] [address] [place] [address]Dr. Emelina Navarro PT Coag (PPP) [Time] 18.3 s Critically high 9.0-11.6 [facility] Comment on above: Performed By: #### P T, PTT ####[facility] [address]fr[address] [place] [id number]. Emelina Navarro PTTon 10-03-2022 aPTT Coag (Bld) [Time] 33.9 s Normal 22.3-36.2 [facility] Comment on above: Performed By: #### P T, PTT ####[facility] Hlgvt[address]jtws[address] [place] [address]Dr. Emelina Navarro TROPONIN, HIGH SENSITIVITYon 10-03-2022 HSTROP 40.2 pg/mL Normal 4.0-76.1 [facility] Comment on above: Result Comment: CUT- OFF POINTS HAVE BEEN ESTABLISHED BASED ON THE FOURTH UNIVERSAL DEFINITIONS OF MYOCARDIALINFARCTION. THE UPPER REFERENCE LIMIT (URL) OF TROPONIN, DEFINED THE 99TH PERCENTILE OFcTnI DISTRIBUTION IN A REFERENCE POPULATION, HAS BEEN CONFIRMED THE DECISION THRESHOLDFOR [place] DIAGNOSIS. Performed By: #### H STROPN, BNP, CMP ####[facility] [address]qrxbs[address] [place] [address]Dr. Emelina Navarro XR CHEST 1 Von 10-03-2022 XR CHEST 1 V Normal [facility] PTH INTACTon 09-19-2022 PTH, Intact 52 pg/mL Normal 15-65 [facility] Comment on above: Performed By: #### P THINT ####[facility] [address] [place] [address]Dr. Emelina Navarro FERRITINon 09-18-2022 Ferritin [Mass/Vol] 92.0 ng/mL Normal 26.0-388.0 [facility] Comment on above: Performed By: #### V ITAD, FERR, FETIBC ####[facility] Rrqgbrexgf4[address] [place] [id number]. Emelina Navarro HEMOGRAM AND PLATELon 2021 Hematocrit (Bld) [Volume fraction] 44.3 % Normal 42.0-54.0 [facility] Comment on above: Performed By: #### H H ####[facility] Cl[address]isr[address] [place] [id number]. Emelina Navarro Hemoglobin (Bld) [Mass/Vol] 14.0 g/dL Normal 14.0-18.0 [facility] Comment on above: Performed By: #### H H ####[facility] [address]vce[address]mdok[address] [place] [address]Dr. Emelina Navarro MCH (RBC) [Entitic mass] 29.0 pg Normal 25.9-34.0 [facility] Comment on above: Performed By: #### H H ####[facility] Abkszqixxp[address] [place] [address]Dr. Emelina Navarro MCHC (RBC) [Mass/Vol] 31.6 g/dL Normal 29.9-35.2 [facility] Comment on above: Performed By: #### H H ####[facility] Iaopvrjypq6[address] [place] [address]DrWesley Emelina Navarro MCV (RBC) [Entitic vol] 91.7 fL Normal 80.0-94.0 [facility] Comment on above: Performed By: #### H H ####[facility] Wmqkkbtdlx[address] [place] [address]Dr. Emelina Navarro PLT 187 103/ul Normal 150-450 [facility] Comment on above: Performed By: #### H H ####[facility] Dmymwajqra3[address] [place] [address]DrWesley Emelina Navarro RBC 4.83 106/ul Normal 4.70-6.10 [facility] Comment on above: Performed By: #### H H ####[facility] Mxfshnysjh[address] [place] [address]DrWesley Emelina Navarro WBC 13.9 103/ul Critically high 4.0-11.0 [facility] Comment on above: Performed By: #### H H ####[facility] Obgcffvrbl[address] [place] [address]Dr. Emelina Navarro IRON AND TIBCon 09-18-2022 % SATURATION 28.9 % Normal [facility] Comment on above: Performed By: #### V ITAD, FERR, FETIBC ####[facility] Bkpdrasqsm[address] [place] [address]Dr. Emelina Navarro Iron [Mass/Vol] 76.0 ug/dL Normal 65.0-175.0 The [facility] Comment on above: Performed By: #### V ITAD, FERR, FETIBC ####[facility] O[address]wh[address] [place], [place] [address]Dr. Emelina Navarro TIBC DIRECT 263.0 ug/dL Normal 250.0-450. 0 [facility] Comment on above: Performed By: #### V ITAD, FERR, FETIBC ####[facility] [address]fcti[address] [place], [place] [address]Dr. Emelina Navarro MAGNESIUMon 09-18-2022 Magnesium [Mass/Vol] 2.3 mg/dL Normal 1.8-2.4 [facility] Comment on above: Performed By: #### R ENAL, URIC, MG ####[facility] [address]unliznm[address] [place] [address]Dr. Emelina Navarro RENAL FUNCTION PANELon 09-18 Albumin [Mass/Vol] 3.5 g/dL Normal 3.4-5.0 [facility] Comment on above: Performed By: #### R ENAL, URIC, MG ####[facility] Rfyszehswo[address] [place] [address]Dr. Emelina Navarro Calcium [Mass/Vol] 8.4 mg/dL Critically low 8.5-10.1 [facility] Comment on above: Performed By: #### R ENAL, URIC, MG ####[facility] Erogeqbbtt[address] [place] [address]Dr. Emelina Navarro Chloride [Moles/Vol] 100 mmol/L Normal 98-107 [facility] Comment on above: Performed By: #### R ENAL, URIC, MG ####[facility] Gqxjwaqdot76[address] [place] [address]Dr. Emelina Navarro CO2 [Moles/Vol] 31.0 mmol/L Normal 21.0-32.0 [facility] Comment on above: Performed By: #### R ENAL, URIC, MG ####[facility] Idktcygteq[address] [place], [place] [address]Dr. Emelina Navarro Creatinine [Mass/Vol] 1.63 mg/dL Critically high 0.70-1.30 [facility] Comment on above: Performed By: #### R ENAL, URIC, MG ####[facility] Rbzgriblch[address] [place], [place] [address]Dr. Emelina Navarro EGFR-AF SURINAMESE 51 mL/min/1.73m2 Critically low >=60 [facility] Comment on above: Performed By: #### R ENAL, URIC, MG ####[facility] Wmqyaspuli[address] [place], [place] [address]Dr. Emelina Navarro EGFR-NON AF SURINAMESE 42 mL/min/1.73m2 Critically low >=60 [facility] Comment on above: Performed By: #### R ENAL, URIC, MG ####[facility] Zkvtmaeebw[address] [place], [place] [address]Dr. Emelina Navarro Glucose [Mass/Vol] 135 mg/dL Critically high 74-106 [facility] Comment on above: Performed By: #### R ENAL, URIC, MG ####[facility] Lbbxinubio[address] [place], [place] [address]Dr. Emelina Navarro Phosphate [Mass/Vol] 3.4 mg/dL Normal 2.6-4.7 [facility] Comment on above: Performed By: #### R ENAL, URIC, MG ####[facility] [address]qpckaxfp[address] [place], [place] [address]Dr. Emelina Navarro Potassium [Moles/Vol] 4.5 mmol/L Normal 3.5-5.1 [facility] Comment on above: Performed By: #### R ENAL, URIC, MG ####[facility] [address]vtoxspjcf[address] [place] [address]Dr. Emelina Navarro Sodium [Moles/Vol] 137 mmol/L Normal 136-145 [facility] Comment on above: Performed By: #### R ENAL, URIC, MG ####[facility] Qhrdvjckaa3184 [place] [address]Dr. Emelina Navarro Urea nitrogen [Mass/Vol] 26.0 mg/dL Critically high 7.0-18.0 [facility] Comment on above: Performed By: #### R ENAL, URIC, MG ####[facility] Kbwytflkcl[address] [place] [address]Dr. Emelina Navarro UA RANDOM W/MICROSCOPICon BACTERIA NONE SEEN Normal NONE SEEN [facility] Comment on above: Performed By: #### U AMIC ####[facility] Fpfpwfkooi20[address] [place], [place] [address]Dr. Emelina Navarro Bilirubin Ql (U) Negative Normal NEGATIVE [facility] Comment on above: Performed By: #### U AMIC ####[facility] [address]cbwqmrfi[address] [place], [place] [address]Dr. Emelina Navarro CAST NONE SEEN Normal NONE SEEN [facility] Comment on above: Performed By: #### U AMIC ####[facility] [address]fktkcs[address] [place], [place] [address]Dr. Emelina Navarro Clarity (U) CLEAR Normal CLEAR [facility] Comment on above: Performed By: #### U AMIC ####[facility] [address]qchubzvq[address] [place], [place] [address]Dr. Emelina Nvaarro Color (U) LT. YELLOW Normal YELLOW [facility] Comment on above: Performed By: #### U AMIC ####[facility] Ofuecrista[address] [place], [place] [address]Dr. Emelina Navarro Crystals LM Nom (Urine sed) NONE SEEN Normal NONE SEEN [facility] Comment on above: Performed By: #### U AMIC ####[facility] Lvmpbkmfrs[address] [place] [address]Dr. Emelina Navarro Epithelial cells LM Ql (Urine sed) NONE SEEN Normal NONE SEEN /RARE [facility] Comment on above: Performed By: #### U AMIC ####[facility] Albntulrrm4[address] [place] [address]Dr. Emelina Navarro Glucose Ql (U) >1000 Abnormal NEGATIVE [facility] Comment on above: Performed By: #### U AMIC ####[facility] Vbcacxtovy[address] [place] [address]Dr. Emelina Navarro Hemoglobin Ql (U) Negative Normal NEGATIVE [facility] Comment on above: Performed By: #### U AMIC ####[facility] Ymmuigcxxo28[address] [place] [address]Dr. Emelina Navarro Ketones Ql (U) Negative Normal NEGATIVE [facility] Comment on above: Performed By: #### U AMIC ####[facility] Qbarbktktb[address] [place], [place] [address]Dr. Emelina Navarro LEUKOCYTES Negative Normal NEGATIVE [facility] Comment on above: Performed By: #### U AMIC ####[facility] Rxswnszkph[address] [place], [place] [address]Dr. Emelina Navarro MUCOUS NONE SEEN Normal NONE SEEN [facility] Comment on above: Performed By: #### U AMIC ####[facility] Ctikjotfgi[address] [place], [place] [address]Dr. Emelina Navarro Nitrite Ql (U) Negative Normal NEGATIVE [facility] Comment on above: Performed By: #### U AMIC ####[facility] Cdhueolrhr1364 [place] [address]Dr. Emelina Navarro pH (U) 6.0 [pH] Normal 5-9 [facility] Comment on above: Performed By: #### U AMIC ####[facility] Haoszwxmhz[address] [place], [place] [address]Dr. Emelina Navarro RBC 0-2 Normal 0-2 [facility] Comment on above: Performed By: #### U AMIC ####[facility] Sjoaymnzae[address] [place] [address]Dr. Emelina Navarro SPEC GRAVITY 1.010 Normal 1.005-<=1. 025 [facility] Comment on above: Performed By: #### U AMIC ####[facility] Xeqcrnklys3508 [place] [address]Dr. Emelina Navarro UA PROTEIN Negative Normal NEGATIVE/ TRACE [facility] Comment on above: Performed By: #### U AMIC ####[facility] Ympguqcvpu8321 [place] [id number]. Emelina Navarro Urobilinogen Qn (U) 0.2 {Ashley'U}/dL Normal 0.2 - 1. 0 [facility] Comment on above: Performed By: #### U AMIC ####[facility] Srjiaggmjz6073 [place] [address]Dr. Emelina Navarro WBC NONE SEEN Normal NONE SEEN [facility] Comment on above: Performed By: #### U AMIC ####[facility] Oguedbjlcj[address] [place], [place] [address]Dr. Emelina Navarro URIC ACID SERUMon 09-18-2022 Urate [Mass/Vol] 9.2 mg/dL Critically high 3.5-7.2 [facility] Comment on above: Performed By: #### R ENAL, URIC, MG ####[facility] Wiqxvjfwrt[address] [place], [place] [address]Dr. Emelina Navarro URINE T PROTEIN CREAT RATIOo n 09-18-2022 Protein (U) [Mass/Vol] 17.5 mg/dL Critically high <=12.0 [facility] Comment on above: Performed By: #### U RTPCR ####[facility] Jlwkdpkcib7[address] [place], [place] [address]Dr. Emelina Navarro UR PROT CREAT RAT 0.61 Normal [facility] Comment on above: Performed By: #### U RTPCR ####[facility] Xfyivfbtrp7[address] [place], [place] [address]Dr. Emelina Navarro URINE CREAT 28.53 mg/dL Normal 20.00-300. 00 [facility] Comment on above: Performed By: #### U RTPCR ####[facility] [address]rddbkvav[address] [place], [place] [address]Dr. Emelina Navarro VITAMIN D 25 OHon 09-18-2022 VIT D 25-OH 49.6 ng/mL Normal [facility] Comment on above: Performed By: #### V ANA WEISS FETIBC ####[facility] Zoggrwgruq[address] [place] [id number]. Emelina Navarro VIT D RANGES SEE BELOW Normal [facility] Comment on above: Result Comment: <20 ng/mL Vit D deficient 20 - <30 ng/mL Vit D insufficient 30 - 100 ng/mL Vit D sufficient >100 ng/mL Potential Toxicity Performed By: #### V ANA WEISS FETIBC ####[facility] Rwauzhlkzs8[address] [place] [id number]. Emelina Navarro A1C HEMOGLOBINon 07-31-2022 HbA1c (Bld) [Mass fraction] 6.7 % [employer] [facility] [employer] Other Glucose - FINGER STICKon Glucose [Mass/Vol] 338 mg/dL [employer] Other HbA1c (Bld) [Mass fraction]o n 07-31-[address] [facility] [employer] Other BNPon 07-19-2022 Natriuretic peptide B (Bld) [Mass/Vol] 7571.0 pg/mL Critically high <=900.0 [facility] Comment on above: Performed By: #### B MP, BNP ####[facility] Dmppampvuv7967 [place] [id number]. Emelina Navarro PROF CHEM 8 (BAS METB)on Anion gap [Moles/Vol] 11.6 mmol/L Normal [facility] Comment on above: Performed By: #### B MP, BNP ####[facility] Ijlowpuzig68[address] [place] [id number]. Emelina Navarro Calcium [Mass/Vol] 9.2 mg/dL Normal 8.5-10.1 [facility] Comment on above: Performed By: #### B MP, BNP ####[facility] Xzldcdfazy4554 [place] [id number]. Emelina Navarro Chloride [Moles/Vol] 102 mmol/L Normal 98-107 [facility] Comment on above: Performed By: #### B MP, BNP ####[facility] Sfphfaygtc7264 [place] [address]Dr. Emelina Navarro CO2 [Moles/Vol] 30.6 mmol/L Normal 21.0-32.0 [facility] Comment on above: Performed By: #### B MP, BNP ####[facility] Lhildaobkn[address] [place], [place] [address]Dr. Emelina Navarro Creatinine [Mass/Vol] 1.72 mg/dL Critically high 0.70-1.30 [facility] Comment on above: Performed By: #### B MP, BNP ####[facility] X[address]awjembdq[address] [place], [place] [address]Dr. Emelina Navarro EGFR-AF SURINAMESE 48 mL/min/1.73m2 Critically low >=60 [facility] Comment on above: Performed By: #### B MP, BNP ####[facility] Fdzcbmaaqu27[address] [place], [place] [address]Dr. Emelina Navarro EGFR-NON AF SURINAMESE 40 mL/min/1.73m2 Critically low >=60 [facility] Comment on above: Performed By: #### B MP, BNP ####[facility] Lswfqdhsbw[address] [place], [place] [address]Dr. Emelina Navarro Glucose [Mass/Vol] 76 mg/dL Normal 74-106 [facility] Comment on above: Performed By: #### B MP, BNP ####[facility] Hmhltuedhh36[address] [place], [place] [address]Dr. Emelina Navarro Potassium [Moles/Vol] 4.2 mmol/L Normal 3.5-5.1 [facility] Comment on above: Performed By: #### B MP, BNP ####[facility] Ajcaqekqil38[address] [place], [place] [address]Dr. Emelina Navarro Sodium [Moles/Vol] 140 mmol/L Normal 136-145 [facility] Comment on above: Performed By: #### B MP, BNP ####[facility] Hrgjafibcc[address] [place], [place] [address]Dr. Emelina Navarro Urea nitrogen [Mass/Vol] 19.0 mg/dL Critically high 7.0-18.0 [facility] Comment on above: Performed By: #### B MP, BNP ####[facility] Bilkjrlrtz64[address] [place] [address]Dr. Emelina Navarro Urea nitrogen/Creatinine [Mass ratio] 11.0 mg/mg Normal [facility] Comment on above: Performed By: #### B MP, BNP ####[facility] Grfieufopn13[address] [place] [address]Dr. Emelina Ramon CBC AUTO DIFFon 06-16-2022 BASO # 0.0 103/ul Normal 0.0-0.1 [facility] Comment on above: Performed By: #### C BC ####[facility] [address]rcqjnfxf[address] [place], [place] [address]Dr. Emelina Ramon Basophils/100 WBC (Bld) 0.1 % Critically low 0.2-2.0 [facility] Comment on above: Performed By: #### C BC ####[facility] [address]uttkopxih[address] [place], [place] [address]Dr. Emelina Navarro EO # 0.1 103/ul Normal 0.0-0.7 [facility] Comment on above: Performed By: #### C BC ####[facility] Bxuxlavclt[address] [place], [place] [address]Dr. Emelina Navarro Eosinophils/100 WBC (Bld) 0.4 % Critically low 0.9-7.0 [facility] Comment on above: Performed By: #### C BC ####[facility] K[address]qchdcj[address] [place], [place] [address]Dr. Emelina Navarro Erythrocyte distribution width (RBC) [Ratio] 17.1 % Critically high 11.0-15.0 [facility] Comment on above: Performed By: #### C BC ####[facility] [address]qzarwdwn[address] [place], [place] [address]Dr. Emelina Navarro Hematocrit (Bld) [Volume fraction] 44.7 % Normal 42.0-54.0 [facility] Comment on above: Performed By: #### C BC ####[facility] Xctynqpcok57[address] [place] [id number]. Emelina Navarro Hemoglobin (Bld) [Mass/Vol] 14.5 g/dL Normal 14.0-18.0 [facility] Comment on above: Performed By: #### C BC ####[facility] Molgqahujt9[address] [place] [id number]. Emelina Navarro IG # 0.07 10e3/ul Critically high 0.00-0.03 [facility] Comment on above: Performed By: #### C BC ####[facility] Eytgsmimtb8800 [place] [id number]. Emelina Navarro IG % 0.4 % Normal 0.0-0.5 [facility] Comment on above: Performed By: #### C BC ####[facility] Qjirlnniix8643 [place] [address]Dr. Emelina Navarro LYMPH # 2.0 103/ul Normal 1.2-3.8 [facility] Comment on above: Performed By: #### C BC ####[facility] Wbvcedhaly9[address] [place] [address]Dr. Emelina Navarro Lymphocytes/100 WBC (Bld) 12.1 % Critically low 20.5-60.0 [facility] Comment on above: Performed By: #### C BC ####[facility] Aqewphwkha[address] [place] [address]Dr. Emelina Navarro MANUAL DIFF REQ NO Normal [facility] Comment on above: Performed By: #### C BC ####[facility] Xvbsvpszxq9805 [place] [address]Dr. Emelina Navarro MCH (RBC) [Entitic mass] 28.2 pg Normal 25.9-34.0 [facility] Comment on above: Performed By: #### C BC ####[facility] Nirtitogrg[address] [place] [address]Dr. Emelina Navarro MCHC (RBC) [Mass/Vol] 32.4 g/dL Normal 29.9-35.2 [facility] Comment on above: Performed By: #### C BC ####[facility] Ectgchqblx7128 [place] [id number]. Emelina Navarro MCV (RBC) [Entitic vol] 86.8 fL Normal 80.0-94.0 [facility] Comment on above: Performed By: #### C BC ####[facility] Lbeqduuuib9787 [place] [id number]. Emelina Navarro MONO # 0.7 103/ul Normal 0.3-0.8 [facility] Comment on above: Performed By: #### C BC ####[facility] Gdnnlkbfug1116 [place] [id number]. Emelina Navarro Monocytes/100 WBC (Bld) 4.3 % Normal 1.7-12.0 [facility] Comment on above: Performed By: #### C BC ####[facility] Esztodlakk[address] [place], [place] [address]Dr. Emelina Navarro NEUT # 13.4 103/ul Critically high 1.4-6.5 [facility] Comment on above: Performed By: #### C BC ####[facility] Ixaqxzzass[address] [place], [place] [address]Dr. Emelina Navarro Neutrophils/100 WBC (Bld) 82.7 % Critically high 43.0-75.0 [facility] Comment on above: Performed By: #### C BC ####[facility] Ljuqvrahzl[address] [place], [place] [id number]. Emelina Navarro Platelet mean volume (Bld) [Entitic vol] 9.5 fL Normal 9.5-13.5 [facility] Comment on above: Performed By: #### C BC ####[facility] Rubrqnlney[address] [place], [place] [address]Dr. Emelina Ramon PLT 218 103/ul Normal 150-450 [facility] Comment on above: Performed By: #### C BC ####[facility] Xxgprvtxcr[address] [place], [place] [address]Dr. Awildanitza Ramon RBC 5.15 106/ul Normal 4.70-6.10 [facility] Comment on above: Performed By: #### C BC ####[facility] Fejejmrpml4934 [place] [address]Dr. Emelina Navarro WBC 16.2 103/ul Critically high 4.0-11.0 [facility] Comment on above: Performed By: #### C BC ####[facility] Wnbtbgnigf[address] [place], [place] [address]Dr. Emelina Navarro PROF 14(COMP METB)on 022 Albumin [Mass/Vol] 3.3 g/dL Critically low 3.4-5.0 [facility] Comment on above: Performed By: #### C MP ####[facility] [address]eefkakcxl90[address] [place], [place] [address]Dr. Emelina Navarro Albumin/Globulin [Mass ratio] 0.8 {ratio} Normal [facility] Comment on above: Performed By: #### C MP ####[facility] Xotxfanmwd[address] [place], [place] [address]Dr. Emelina Navarro ALP [Catalytic activity/Vol] 81 U/L Normal 46-116 [facility] Comment on above: Performed By: #### C MP ####[facility] Jtvuuabkeb[address] [place], [place] [address]Dr. Emelina Navarro ALT [Catalytic activity/Vol] 34 U/L Normal 16-63 [facility] Comment on above: Performed By: #### C MP ####[facility] W[address]qpynzrat[address] [place], [place] [address]Dr. Emelina Navarro Anion gap [Moles/Vol] 14.1 mmol/L Normal [facility] Comment on above: Performed By: #### C MP ####[facility] Voyxbgysug40[address] [place], [place] [address]Dr. Emelina Navarro AST [Catalytic activity/Vol] 22 U/L Normal 15-37 [facility] Comment on above: Performed By: #### C MP ####[facility] Zooqoxgumh[address] [place], [place] [address]Dr. Emelina Navarro Bilirubin [Mass/Vol] 1.0 mg/dL Normal 0.2-1.0 [facility] Comment on above: Performed By: #### C MP ####[facility] Omybzbtkid[address] [place] [id number]. Emelina Navarro Calcium [Mass/Vol] 8.6 mg/dL Normal 8.5-10.1 [facility] Comment on above: Performed By: #### C MP ####[facility] Odbbpkw[address] [place] [id number]. Emelina Navarro Chloride [Moles/Vol] 98 mmol/L Normal 98-107 [facility] Comment on above: Performed By: #### C MP ####[facility] Ajfwfeaukf[address] [place] [address]Dr. Emelina Navarro CO2 [Moles/Vol] 28.0 mmol/L Normal 21.0-32.0 [facility] Comment on above: Performed By: #### C MP ####[facility] Jogctwjmcl75[address] [place] [address]Dr. Emelina Navarro Creatinine [Mass/Vol] 1.83 mg/dL Critically high 0.70-1.30 [facility] Comment on above: Performed By: #### C MP ####[facility] Bqpgwtedeb[address] [place], [place] [address]Dr. Emelina Navarro EGFR-AF SURINAMESE 45 mL/min/1.73m2 Critically low >=60 [facility] Comment on above: Performed By: #### C MP ####[facility] Nxxtekogxa98[address] [place], [place] [address]Dr. Emelina Ramon EGFR-NON AF SURINAMESE 37 mL/min/1.73m2 Critically low >=60 [facility] Comment on above: Performed By: #### C MP ####[facility] [address]la[address]rtgxo[address] [place] [address]Dr. Emelina Ramon Globulin (S) [Mass/Vol] 4.3 g/dL Normal [facility] Comment on above: Performed By: #### C MP ####[facility] Rmydkjhxfu65[address] [place] [address]Dr. Emelina Ramon Glucose [Mass/Vol] 173 mg/dL Critically high 74-106 [facility] Comment on above: Performed By: #### C MP ####[facility] Soenznloku63[address] [place] [address]Dr. Emelina Navarro Potassium [Moles/Vol] 4.1 mmol/L Normal 3.5-5.1 [facility] Comment on above: Performed By: #### C MP ####[facility] Lzfgxewjpx47[address] [place], [place] [address]Dr. Emelina Navarro Protein [Mass/Vol] 7.6 g/dL Normal 6.4-8.2 [facility] Comment on above: Performed By: #### C MP ####[facility] Uxctgnfxmg7[address] [place], [place] [address]Dr. Emelina Navarro Sodium [Moles/Vol] 136 mmol/L Normal 136-145 [facility] Comment on above: Performed By: #### C MP ####[facility] Qcdwfcdljx5469[address] [place], [place] [address]Dr. Emelina Navarro Urea nitrogen [Mass/Vol] 46.0 mg/dL Critically high 7.0-18.0 [facility] Comment on above: Performed By: #### C MP ####[facility] Wczptclhim69[address] [place], [place] [address]Dr. Emelina Navarro Urea nitrogen/Creatinine [Mass ratio] 25.1 mg/mg Normal [facility] Comment on above: Performed By: #### C MP ####[facility] Wbzrncyikf0044[address] [place], [place] [address]Dr. Emelina Navarro PROTIMEon 06-16-2022 INR Coag (PPP) [Relative time] 2.12 {INR} Normal [facility] Comment on above: Performed By: #### P T ####[facility] Qejxcvinvx4969[address] [place], [place] [address]Dr. Emelina Navarro INR GUIDELINES SEE BELOW Normal [facility] Comment on above: Result Comment: WENDY RED INR: 2.0 - 3.0 CONDITIONS NOT LISTED BELOW 2.5 - 3.5 FOR PROSTHETIC HEART VALVE REPLACEMENT 2.5 - 3.5 RECURRENT THROMBOSIS Performed By: #### P T ####[facility] Hsaexawpol08[address] [place], [place] [address]Dr. Emelina Navarro PT Coag (PPP) [Time] 21.8 s Critically high 9.0-11.6 [facility] Comment on above: Performed By: #### P T ####[facility] Nipygzgxkw0738[address] [place], [place] [address]Dr. Emelina Navarro BNPon 06-15-2022 Natriuretic peptide B (Bld) [Mass/Vol] 4304.0 pg/mL Critically high <=900.0 [facility] Comment on above: Performed By: #### B STRAIGHT PIN MAKING MACHINE OPERATOR ####[facility] Hngoywzyha1166[address] [place], [place] [address]Dr. Emelina Navarro CBC AUTO DIFFon 06-15-2022 BASO # 0.0 103/ul Normal 0.0-0.1 [facility] Comment on above: Performed By: #### C BC ####[facility] Lcbqhrbicr4836[address] [place], [place] [address]Dr. Emelina Navarro Basophils/100 WBC (Bld) 0.1 % Critically low 0.2-2.0 [facility] Comment on above: Performed By: #### C BC ####[facility] Hdsnpnjibg4[address] [place], [place] [address]Dr. Emelina Navarro EO # 0.0 103/ul Normal 0.0-0.7 [facility] Comment on above: Performed By: #### C BC ####[facility] Bffjawmwga20[address] [place], [place] [address]Dr. Emelina Navarro Eosinophils/100 WBC (Bld) 0.1 % Critically low 0.9-7.0 [facility] Comment on above: Performed By: #### C BC ####[facility] Mjrbfkpenv95[address] [place], [place] [address]Dr. Emelina Navarro Erythrocyte distribution width (RBC) [Ratio] 17.1 % Critically high 11.0-15.0 [facility] Comment on above: Performed By: #### C BC ####[facility] Sgyaqgaxes3326[address] [place], [place] [address]Dr. Awildanitza Ramon Hematocrit (Bld) [Volume fraction] 40.9 % Critically low 42.0-54.0 [facility] Comment on above: Performed By: #### C BC ####[facility] Jhgltyqivr8[address] [place] [id number]. Emelina Navarro Hemoglobin (Bld) [Mass/Vol] 13.4 g/dL Critically low 14.0-18.0 [facility] Comment on above: Performed By: #### C BC ####[facility] Rocbghzybj99[address] [place] [id number]. Emelina Navarro IG # 0.17 10e3/ul Critically high 0.00-0.03 [facility] Comment on above: Performed By: #### C BC ####[facility] Cgmhthrsaf6223 [place] [address]Dr. Emelina Navarro IG % 0.8 % Critically high 0.0-0.5 The [facility] Comment on above: Performed By: #### C BC ####[facility] Fexcsfmciy11[address] [place], [place] [address]Dr. Emelina Navarro LYMPH # 1.4 103/ul Normal 1.2-3.8 [facility] Comment on above: Performed By: #### C BC ####[facility] Amymsxzzan58[address] [place] [address]Dr. Emelina Navarro Lymphocytes/100 WBC (Bld) 6.8 % Critically low 20.5-60.0 [facility] Comment on above: Performed By: #### C BC ####[facility] Igwjmzzerj8188 [place] [address]Dr. Emelina Navarro MANUAL DIFF REQ NO Normal The [facility] Comment on above: Performed By: #### C BC ####[facility] Lpfhprfraq1806[address] [place], [place] [address]Dr. Emelina Navarro MCH (RBC) [Entitic mass] 28.6 pg Normal 25.9-34.0 [facility] Comment on above: Performed By: #### C BC ####[facility] Tkvoclkczv6[address] [place], [place] [address]Dr. Emelina Navarro MCHC (RBC) [Mass/Vol] 32.8 g/dL Normal 29.9-35.2 [facility] Comment on above: Performed By: #### C BC ####[facility] Grflxqveqd[address] [place] [id number]. Emelina Navarro MCV (RBC) [Entitic vol] 87.2 fL Normal 80.0-94.0 [facility] Comment on above: Performed By: #### C BC ####[facility] Dktsydjszz6918 [place] [id number]. Emelina Navarro MONO # 0.8 103/ul Normal 0.3-0.8 [facility] Comment on above: Performed By: #### C BC ####[facility] Wpmrliuyau7567 [place] [id number]. Emelina Navarro Monocytes/100 WBC (Bld) 3.8 % Normal 1.7-12.0 [facility] Comment on above: Performed By: #### C BC ####[facility] Emowynqmpz45[address] [place] [id number]. Emelina Navarro NEUT # 17.9 103/ul Critically high 1.4-6.5 [facility] Comment on above: Performed By: #### C BC ####[facility] Mqotxffcjk9821 [place] [id number]. Emelina Navarro Neutrophils/100 WBC (Bld) 88.4 % Critically high 43.0-75.0 [facility] Comment on above: Performed By: #### C BC ####[facility] Dbbaramhsa4915 [place] [phone]. Emelina Navarro Platelet mean volume (Bld) [Entitic vol] 9.7 fL Normal 9.5-13.5 [facility] Comment on above: Performed By: #### C BC ####[facility] Xhfrxmmuxo88[address] [place] [id number]. Emelina Navarro PLT 211 103/ul Normal 150-450 [facility] Comment on above: Performed By: #### C BC ####[facility] Vvnnhdoyzx9215 [place] [id number]. Emelina Navarro RBC 4.69 106/ul Critically low 4.70-6.10 The [facility] Comment on above: Performed By: #### C BC ####[facility] Cwzzqrfxne0541 [place] [id number]. Emelina Navarro WBC 20.2 103/ul Critically high 4.0-11.0 [facility] Comment on above: Performed By: #### C BC ####[facility] Strllryvtt3[address] [place] [address]Dr. Emelina Navarro PROF 14(COMP METB)on 022 Albumin [Mass/Vol] 2.9 g/dL Critically low 3.4-5.0 [facility] Comment on above: Performed By: #### C MP ####[facility] Gsisaaooww8[address] [place] [address]Dr. Emelina Navarro Albumin/Globulin [Mass ratio] 0.7 {ratio} Normal [facility] Comment on above: Performed By: #### C MP ####[facility] Dldzgdzngw7450 [place] [address]Dr. Emelina Navarro ALP [Catalytic activity/Vol] 77 U/L Normal 46-116 [facility] Comment on above: Performed By: #### C MP ####[facility] Sawulqjwbo36[address] [place] [address]Dr. Emelina Navarro ALT [Catalytic activity/Vol] 26 U/L Normal 16-63 [facility] Comment on above: Performed By: #### C MP ####[facility] Gjgdehogkb4241 [place] [address]Dr. Emelina Navarro Anion gap [Moles/Vol] 13.2 mmol/L Normal [facility] Comment on above: Performed By: #### C MP ####[facility] Ahcxmxkrwk2113 [place] [address]Dr. Emelina Navarro AST [Catalytic activity/Vol] 18 U/L Normal 15-37 [facility] Comment on above: Performed By: #### C MP ####[facility] Rgsucvjupc2157 [place] [address]Dr. Emelina Navarro Bilirubin [Mass/Vol] 0.8 mg/dL Normal 0.2-1.0 [facility] Comment on above: Performed By: #### C MP ####[facility] Lyjcjntmyr6921 [place] [id number]. Emelina Navarro Calcium [Mass/Vol] 8.4 mg/dL Critically low 8.5-10.1 [facility] Comment on above: Performed By: #### C MP ####[facility] Xhdrarzzcf9281 [place] [id number]. Emelina Navarro Chloride [Moles/Vol] 101 mmol/L Normal 98-107 [facility] Comment on above: Performed By: #### C MP ####[facility] Ljfnkwcwcf8313 [place] [phone]. Emelina Navarro CO2 [Moles/Vol] 27.9 mmol/L Normal 21.0-32.0 [facility] Comment on above: Performed By: #### C MP ####[facility] Whmcigomas3428 [place] [address]Dr. Emelina Navarro Creatinine [Mass/Vol] 1.90 mg/dL Critically high 0.70-1.30 [facility] Comment on above: Performed By: #### C MP ####[facility] Gkwnopzkyz4373 [place] [id number]. Emelina Navarro EGFR-AF SURINAMESE 43 mL/min/1.73m2 Critically low >=60 [facility] Comment on above: Performed By: #### C MP ####[facility] Tftiykbeyl3475 [place] [id number]. Emelina Ramon EGFR-NON AF SURINAMESE 36 mL/min/1.73m2 Critically low >=60 [facility] Comment on above: Performed By: #### C MP ####[facility] Fwlkdwpnwt3637 [place] [phone]. Emelina Navarro Globulin (S) [Mass/Vol] 3.9 g/dL Normal [facility] Comment on above: Performed By: #### C MP ####[facility] Vijkgzihrm9254 [place] [address]Dr. Emelina Ramon Glucose [Mass/Vol] 175 mg/dL Critically high 74-106 [facility] Comment on above: Performed By: #### C MP ####[facility] Cpzafyqcvx2086 [place] [address]Dr. Emelina Navarro Potassium [Moles/Vol] 4.1 mmol/L Normal 3.5-5.1 [facility] Comment on above: Performed By: #### C MP ####[facility] Thtizqcuql7399[address] [place], [place] [address]Dr. Emelina Navarro Protein [Mass/Vol] 6.8 g/dL Normal 6.4-8.2 [facility] Comment on above: Performed By: #### C MP ####[facility] Nvberwjgye0401[address] [place], [place] [address]Dr. Emelina Navarro Sodium [Moles/Vol] 138 mmol/L Normal 136-145 [facility] Comment on above: Performed By: #### C MP ####[facility] Ptlropntze169[address] [place], [place] [address]Dr. Emelina Navarro Urea nitrogen [Mass/Vol] 46.0 mg/dL Critically high 7.0-18.0 [facility] Comment on above: Performed By: #### C MP ####[facility] Qefvevxzuu7514[address] [place], [place] [address]Dr. Emelina Navarro Urea nitrogen/Creatinine [Mass ratio] 24.2 mg/mg Normal [facility] Comment on above: Performed By: #### C MP ####[facility] Afjbwqanin9619[address] [place], [place] [address]Dr. Emelina Navarro PROTIMEon 06-15-2022 INR Coag (PPP) [Relative time] 3.34 {INR} Normal [facility] Comment on above: Performed By: #### P T ####[facility] Zvxxivxqol473[address] [place], [place] [address]Dr. Emelina Navarro INR GUIDELINES SEE BELOW Normal [facility] Comment on above: Result Comment: WENDY RED INR: 2.0 - 3.0 CONDITIONS NOT LISTED BELOW 2.5 - 3.5 FOR PROSTHETIC HEART VALVE REPLACEMENT 2.5 - 3.5 RECURRENT THROMBOSIS Performed By: #### P T ####[facility] Loxzrksqfr989[address] [place], [place] [address]Dr. Emelina Navarro PT Coag (PPP) [Time] 33.3 s Critically high 9.0-11.6 [facility] Comment on above: Performed By: #### P T ####[facility] Qfodprjvhu1218[address] [place], [place] [address]Dr. Emelina Navarro CBC AUTO DIFFon 06-14-2022 BASO # 0.0 103/ul Normal 0.0-0.1 [facility] Comment on above: Performed By: #### C BC ####[facility] Ngigxstbuu4368[address] [place], [place] [address]Dr. Emelina Navarro Basophils/100 WBC (Bld) 0.1 % Critically low 0.2-2.0 [facility] Comment on above: Performed By: #### C BC ####[facility] Tokbbngqoy2608[address] [place], [place] [address]Dr. Emelina Navarro EO # 0.0 103/ul Normal 0.0-0.7 [facility] Comment on above: Performed By: #### C BC ####[facility] Kgpvzdivuu1814[address] [place], [place] [address]Dr. Emelina Navarro Eosinophils/100 WBC (Bld) 0.0 % Critically low 0.9-7.0 [facility] Comment on above: Performed By: #### C BC ####[facility] Ddapokxjtv8326[address] [place], [place] [address]Dr. Emelina Navarro Erythrocyte distribution width (RBC) [Ratio] 17.0 % Critically high 11.0-15.0 [facility] Comment on above: Performed By: #### C BC ####[facility] Baggwnmybr4[address] [place], [place] [address]Dr. Emelina Navarro Hematocrit (Bld) [Volume fraction] 40.2 % Critically low 42.0-54.0 [facility] Comment on above: Performed By: #### C BC ####[facility] Hotmhhctnd9094[address] [place], [place] [address]Dr. Emelina Navarro Hemoglobin (Bld) [Mass/Vol] 13.0 g/dL Critically low 14.0-18.0 [facility] Comment on above: Performed By: #### C BC ####[facility] Cxfskwubgd8300 [place] [id number]. Emelina Navarro IG # 0.18 10e3/ul Critically high 0.00-0.03 [facility] Comment on above: Performed By: #### C BC ####[facility] Bkydvyfdlq5697 [place] [id number]. Emelina Navarro IG % 0.8 % Critically high 0.0-0.5 The [facility] Comment on above: Performed By: #### C BC ####[facility] Dafdqvjnxg4829 [place] [address]Dr. Emelina Ramon LYMPH # 1.1 103/ul Critically low 1.2-3.8 [facility] Comment on above: Performed By: #### C BC ####[facility] Mkhbjjbzem2767 [place] [address]Dr. Emelina Navarro Lymphocytes/100 WBC (Bld) 5.4 % Critically low 20.5-60.0 [facility] Comment on above: Performed By: #### C BC ####[facility] Wdmbcpvmsg8771 [place] [address]Dr. Emelina Navarro MANUAL DIFF REQ NO Normal The [facility] Comment on above: Performed By: #### C BC ####[facility] Epcrafvbdk1313 [place] [address]Dr. Emelina Navarro MCH (RBC) [Entitic mass] 28.4 pg Normal 25.9-34.0 [facility] Comment on above: Performed By: #### C BC ####[facility] Ipilfygget060[address] [place] [address]Dr. Emelina Navarro MCHC (RBC) [Mass/Vol] 32.3 g/dL Normal 29.9-35.2 [facility] Comment on above: Performed By: #### C BC ####[facility] Tpixftpqif7153 [place] [address]Dr. Emelina Navarro MCV (RBC) [Entitic vol] 88.0 fL Normal 80.0-94.0 [facility] Comment on above: Performed By: #### C BC ####[facility] Haszdajfwn3192 [place] [id number]. Emelina Navarro MONO # 0.6 103/ul Normal 0.3-0.8 [facility] Comment on above: Performed By: #### C BC ####[facility] Zhyecjgoqd0347 [place] [id number]. Emelina Navarro Monocytes/100 WBC (Bld) 3.0 % Normal 1.7-12.0 [facility] Comment on above: Performed By: #### C BC ####[facility] Mdgovbkoqq0087 [place] [id number]. Emelina Navarro NEUT # 19.3 103/ul Critically high 1.4-6.5 [facility] Comment on above: Performed By: #### C BC ####[facility] Dhwojbmhlt9810 [place] [id number]. Emelina Navarro Neutrophils/100 WBC (Bld) 90.7 % Critically high 43.0-75.0 [facility] Comment on above: Performed By: #### C BC ####[facility] Datbjuwmds6542 [place] [id number]. Emelina Navarro Platelet mean volume (Bld) [Entitic vol] 10.6 fL Normal 9.5-13.5 [facility] Comment on above: Performed By: #### C BC ####[facility] Wwimsrtdac7015 [place] [id number]. Emelina Navarro PLT 191 103/ul Normal 150-450 [facility] Comment on above: Performed By: #### C BC ####[facility] Ndhwyfhlxx3566 [place] [id number]. Emelina Navarro RBC 4.57 106/ul Critically low 4.70-6.10 The [facility] Comment on above: Performed By: #### C BC ####[facility] Ubjsyprtfj3036 [place] [id number]. Emelina Navarro WBC 21.3 103/ul Critically high 4.0-11.0 [facility] Comment on above: Performed By: #### C BC ####[facility] Nixgpoqnom[address] [place] [address]Dr. Emelina Navarro PROF 14(COMP METB)on 022 Albumin [Mass/Vol] 2.5 g/dL Critically low 3.4-5.0 [facility] Comment on above: Performed By: #### C MP ####[facility] Peyrmyxzix8502 [place] [address]Dr. Emelina Navarro Albumin/Globulin [Mass ratio] 0.6 {ratio} Normal [facility] Comment on above: Performed By: #### C MP ####[facility] Smzwdrfyik9[address] [place], [place] [address]Dr. Emelina Navarro ALP [Catalytic activity/Vol] 77 U/L Normal 46-116 [facility] Comment on above: Performed By: #### C MP ####[facility] Mbxizikzsp7[address] [place], [place] [address]Dr. Emelina Navarro ALT [Catalytic activity/Vol] 25 U/L Normal 16-63 [facility] Comment on above: Performed By: #### C MP ####[facility] G[address]iruzqppq6[address] [place], [place] [address]Dr. Emelina Navarro Anion gap [Moles/Vol] 12.5 mmol/L Normal [facility] Comment on above: Performed By: #### C MP ####[facility] Plgvslablq49[address] [place], [place] [address]Dr. Emelina Navarro AST [Catalytic activity/Vol] 34 U/L Normal 15-37 [facility] Comment on above: Performed By: #### C MP ####[facility] Ngrwoflotj1484[address] [place], [place] [address]Dr. Emelina Navarro Bilirubin [Mass/Vol] 0.9 mg/dL Normal 0.2-1.0 [facility] Comment on above: Performed By: #### C MP ####[facility] Kknkydlykf27[address] [place], [place] [address]Dr. Emelina Navarro Calcium [Mass/Vol] 8.1 mg/dL Critically low 8.5-10.1 [facility] Comment on above: Performed By: #### C MP ####[facility] Wgaodpwtpn1686 [place] [id number]. Emelina Navarro Chloride [Moles/Vol] 101 mmol/L Normal 98-107 [facility] Comment on above: Performed By: #### C MP ####[facility] Wcioiymmpq8980 [place] [id number]. Emelina Navarro CO2 [Moles/Vol] 24.8 mmol/L Normal 21.0-32.0 [facility] Comment on above: Performed By: #### C MP ####[facility] Pvggrgzwwr5809 [place] [address]Dr. Emelina Navarro Creatinine [Mass/Vol] 1.93 mg/dL Critically high 0.70-1.30 [facility] Comment on above: Performed By: #### C MP ####[facility] Ucjkbmrvds8286 [place] [address]Dr. Emelina Ramon EGFR-AF SURINAMESE 42 mL/min/1.73m2 Critically low >=60 [facility] Comment on above: Performed By: #### C MP ####[facility] Vgdplxvjlk3798 [place] [id number]. Emelina Ramon EGFR-NON AF SURINAMESE 35 mL/min/1.73m2 Critically low >=60 [facility] Comment on above: Performed By: #### C MP ####[facility] Msztzkadhu6196 [place] [address]Dr. Emelina Ramon Globulin (S) [Mass/Vol] 3.9 g/dL Normal [facility] Comment on above: Performed By: #### C MP ####[facility] Lmbjixhqfv2270 [place] [address]Dr. Emelina Ramon Glucose [Mass/Vol] 236 mg/dL Critically high 74-106 [facility] Comment on above: Performed By: #### C MP ####[facility] Qiqyjdjggv2795 [place] [address]Dr. Emelina Ramon Potassium [Moles/Vol] 5.3 mmol/L Critically high 3.5-5.1 [facility] Comment on above: Performed By: #### C MP ####[facility] Hxpexjgvso7102 [place] [id number]. Emelina Navarro Protein [Mass/Vol] 6.4 g/dL Normal 6.4-8.2 [facility] Comment on above: Performed By: #### C MP ####[facility] Qwcrdhxhcm1858 [place] [id number]. Emelina Navarro Sodium [Moles/Vol] 133 mmol/L Critically low 136-145 Th [facility] Comment on above: Performed By: #### C MP ####[facility] Qxpejgggxe8725 [place] [address]Dr. Emelina Navarro Urea nitrogen [Mass/Vol] 43.0 mg/dL Critically high 7.0-18.0 [facility] Comment on above: Performed By: #### C MP ####[facility] Gfuqphysqp80[address] [place], [place] [address]Dr. Emelina Navarro Urea nitrogen/Creatinine [Mass ratio] 22.3 mg/mg Normal [facility] Comment on above: Performed By: #### C MP ####[facility] [address]cqdkrdk[address] [place], [place] [address]Dr. Emelina Navarro PROTIMEon 06-14-2022 INR Coag (PPP) [Relative time] 4.39 {INR} Critically high [facility] Comment on above: Performed By: #### P T ####[facility] [address] [place], [place] [address]Dr. Emelina Navarro INR GUIDELINES SEE BELOW Normal [facility] Comment on above: Result Comment: WENDY RED INR: 2.0 - 3.0 CONDITIONS NOT LISTED BELOW 2.5 - 3.5 FOR PROSTHETIC HEART VALVE REPLACEMENT 2.5 - 3.5 RECURRENT THROMBOSIS Performed By: #### P T ####[facility] Lujqfroyyc[address] [place], [place] [address]Dr. Emelina Navarro PT Coag (PPP) [Time] 43.0 s Critically high 9.0-11.6 [facility] Comment on above: Performed By: #### P T ####[facility] Zoezhipumn[address] [place], [place] [address]Dr. Emelina Navarro XR CHEST 1 Von 06-14-2022 XR CHEST 1 V Normal [facility] BNPon 06-13-2022 Natriuretic peptide B (Bld) [Mass/Vol] 9889.0 pg/mL Critically high <=900.0 [facility] Comment on above: Performed By: #### B MP, BNP ####[facility] [address] [place] [address]Dr. Emelina Ramon CBC AUTO DIFFon 06-13-2022 BASO # 0.0 103/ul Normal 0.0-0.1 [facility] Comment on above: Performed By: #### C BC ####[facility] Mccigkaycg[address] [place], [place] [address]Dr. Emelina Navarro Basophils/100 WBC (Bld) 0.1 % Critically low 0.2-2.0 [facility] Comment on above: Performed By: #### C BC ####[facility] Mhfcvcpgtm[address] [place], [place] [address]Dr. Emelina Navarro EO # 0.0 103/ul Normal 0.0-0.7 [facility] Comment on above: Performed By: #### C BC ####[facility] Tkrricfudq05[address] [place], [place] [address]Dr. Emelina Navarro Eosinophils/100 WBC (Bld) 0.0 % Critically low 0.9-7.0 [facility] Comment on above: Performed By: #### C BC ####[facility] Bxtxgbloks18[address] [place], [place] [address]Dr. Emelina Navarro Erythrocyte distribution width (RBC) [Ratio] 17.4 % Critically high 11.0-15.0 [facility] Comment on above: Performed By: #### C BC ####[facility] Vasvxchrzi3366[address] [place], [place] [address]Dr. Emelina Navarro Hematocrit (Bld) [Volume fraction] 43.5 % Normal 42.0-54.0 [facility] Comment on above: Performed By: #### C BC ####[facility] Ebdignvxet67[address] [place], [place] [address]Dr. Emelina Navarro Hemoglobin (Bld) [Mass/Vol] 14.1 g/dL Normal 14.0-18.0 [facility] Comment on above: Performed By: #### C BC ####[facility] Tltpqiunux[address] [place] [address]DrWesley Navarro IG # 0.15 10e3/ul Critically high 0.00-0.03 [facility] Comment on above: Performed By: #### C BC ####[facility] Lnhhscgctz7[address] [place] [address]DrWesley Navarro IG % 0.8 % Critically high 0.0-0.5 [facility] Comment on above: Performed By: #### C BC ####[facility] Carkitcbug7[address] [place] [address]DrWesley Navarro LYMPH # 0.9 103/ul Critically low 1.2-3.8 [facility] Comment on above: Performed By: #### C BC ####[facility] Rtunihscpq9412 [place] [address]DrWesley Navarro Lymphocytes/100 WBC (Bld) 5.0 % Critically low 20.5-60.0 [facility] Comment on above: Performed By: #### C BC ####[facility] Fmedrieydv37[address] [place] [address]DrWesley Navarro MANUAL DIFF REQ NO Normal [facility] Comment on above: Performed By: #### C BC ####[facility] Asaedoufdf36[address] [place] [address]DrWesley Navarro MCH (RBC) [Entitic mass] 28.8 pg Normal 25.9-34.0 [facility] Comment on above: Performed By: #### C BC ####[facility] Rbdzjbhaqd9958 [place] [address]DrWesley Navarro MCHC (RBC) [Mass/Vol] 32.4 g/dL Normal 29.9-35.2 [facility] Comment on above: Performed By: #### C BC ####[facility] Dhnznqqifa5344 [place] [address]DrWesley Navarro MCV (RBC) [Entitic vol] 89.0 fL Normal 80.0-94.0 [facility] Comment on above: Performed By: #### C BC ####[facility] Dwkisnmpxe7018 [place] [address]Dr. Emelina Navarro MONO # 0.1 103/ul Critically low 0.3-0.8 [facility] Comment on above: Performed By: #### C BC ####[facility] Oxfvpskigr8811 [place] [address]DrWesley Navarro Monocytes/100 WBC (Bld) 0.5 % Critically low 1.7-12.0 [facility] Comment on above: Performed By: #### C BC ####[facility] Nwpmqrqdgg6989[address] [place], [place] [address]DrWesley Navarro NEUT # 17.4 103/ul Critically high 1.4-6.5 [facility] Comment on above: Performed By: #### C BC ####[facility] Fahhbheqdu1250[address] [place], [place] [address]DrWesley Navarro Neutrophils/100 WBC (Bld) 93.6 % Critically high 43.0-75.0 [facility] Comment on above: Performed By: #### C BC ####[facility] Qztkslggtc1930[address] [place], [place] [address]DrWesley Navarro Platelet mean volume (Bld) [Entitic vol] 9.8 fL Normal 9.5-13.5 [facility] Comment on above: Performed By: #### C BC ####[facility] Gxchlhkdwi34[address] [place] [address]DrWesley Navarro PLT 186 103/ul Normal 150-450 [facility] Comment on above: Performed By: #### C BC ####[facility] Unhmnogk[address] [place], [place] [id number] Navarro RBC 4.89 106/ul Normal 4.70-6.10 [facility] Comment on above: Performed By: #### C BC ####[facility] Xkbozdeaku40[address] [place], [place] [id number] Navarro WBC 18.6 103/ul Critically high 4.0-11.0 [facility] Comment on above: Performed By: #### C BC ####[facility] Aryessdvqt36[address] [place] [address]Dr. Emelina Navarro CT CHEST WO CONon 06-13-2022 CT CHEST WO CON Normal [facility] CULTURE SPUTUMon 06-13-2022 CULTURE SPUTUM Culture Observations : NORMAL RESPIRATORY CEDRIC. Normal [facility] Comment on above: Performed By: #### S PUTCX ####[facility] Ucmxtveytt14[address] [place] [address]Dr. Emelina Navarro ECHOCARDIO M/2D COMPLETEon 0 06-13-2022 ECHOCARDIO M/2D COMPLETE Normal [facility] POINT OF CARE GLUCOSEon 05-20 Glucose [Mass/Vol] 255 mg/dL Critically high 74-106 [facility] Comment on above: Performed By: #### P OCGLUC ####[facility] Vefhpeumjz34[address] [place], [place] [address]Dr. Emelina Navarro Glucose [Mass/Vol] 408 mg/dL Critically high 74-106 [facility] Comment on above: Performed By: #### P OCGLUC ####[facility] Nbquxlejvq094[address] [place], [place] [address]Dr. Emelina Navarro PROF CHEM 8 (BAS METB)on Anion gap [Moles/Vol] 14.7 mmol/L Normal [facility] Comment on above: Performed By: #### B MP, BNP ####[facility] Zxnbxhbzfn7346[address] [place], [place] [address]Dr. Emelina Navarro Calcium [Mass/Vol] 8.3 mg/dL Critically low 8.5-10.1 [facility] Comment on above: Performed By: #### B MP, BNP ####[facility] Wmmvaglthy4[address] [place], [place] [address]Dr. Emelina Navarro Chloride [Moles/Vol] 102 mmol/L Normal 98-107 [facility] Comment on above: Performed By: #### B MP, BNP ####[facility] Pfyjbrrvjr32[address] [place], [place] [address]Dr. Emelina Navarro CO2 [Moles/Vol] 26.0 mmol/L Normal 21.0-32.0 [facility] Comment on above: Performed By: #### B MP, BNP ####[facility] Purkvljjnz0384[address] [place], [place] [address]Dr. Emelina Navarro Creatinine [Mass/Vol] 2.07 mg/dL Critically high 0.70-1.30 [facility] Comment on above: Performed By: #### B MP, BNP ####[facility] Tfgakhbiss3336[address] [place], [place] [address]Dr. Emelina Navarro EGFR-AF SURINAMESE 39 mL/min/1.73m2 Critically low >=60 [facility] Comment on above: Performed By: #### B MP, BNP ####[facility] Sgfhgurard[address] [place], [place] [address]Dr. Emelina Navarro EGFR-NON AF SURINAMESE 32 mL/min/1.73m2 Critically low >=60 [facility] Comment on above: Performed By: #### B MP, BNP ####[facility] Powlkwejio8824[address] [place], [place] [address]Dr. Emelina Navarro Glucose [Mass/Vol] 245 mg/dL Critically high 74-106 [facility] Comment on above: Performed By: #### B MP, BNP ####[facility] Rbsobtliod65[address] [place], [place] [address]Dr. Emelina Navarro Potassium [Moles/Vol] 4.7 mmol/L Normal 3.5-5.1 [facility] Comment on above: Performed By: #### B MP, BNP ####[facility] Ipbfreuycq5090[address] [place], [place] [address]Dr. Emelina Navarro Sodium [Moles/Vol] 138 mmol/L Normal 136-145 [facility] Comment on above: Performed By: #### B MP, BNP ####[facility] Mhpubjvsrf232[address] [place], [place] [address]Dr. Emelina Navarro Urea nitrogen [Mass/Vol] 30.0 mg/dL Critically high 7.0-18.0 [facility] Comment on above: Performed By: #### B MP, BNP ####[facility] [address]xuvzace[address] [place] [id number]. Emelina Navarro Urea nitrogen/Creatinine [Mass ratio] 14.5 mg/mg Normal [facility] Comment on above: Performed By: #### B MP, BNP ####[facility] Mlnbxdjooc[address] [place] [address]Dr. Emelina Navarro PROTIMEon 06-13-2022 INR Coag (PPP) [Relative time] 3.59 {INR} Normal [facility] Comment on above: Performed By: #### P T ####[facility] Wozrlkqtce35[address] [place] [address]Dr. Emelina Navarro INR GUIDELINES SEE BELOW Normal [facility] Comment on above: Result Comment: WENDY RED INR: 2.0 - 3.0 CONDITIONS NOT LISTED BELOW 2.5 - 3.5 FOR PROSTHETIC HEART VALVE REPLACEMENT 2.5 - 3.5 RECURRENT THROMBOSIS Performed By: #### P T ####[facility] Yucdzkmyxr99[address] [place], [place] [address]Dr. Emelina Navarro PT Coag (PPP) [Time] 35.7 s Critically high 9.0-11.6 [facility] Comment on above: Performed By: #### P T ####[facility] Yqztnazlrq66[address] [place], [place] [address]Dr. Emelina Navarro SPUTUM GRAM STAINon 06-13-20 COMMENTS Normal [facility] Comment on above: Performed By: #### S PUTGS ####[facility] Ojhblklxym[address] [place] [address]Dr. Emelina Navarro DIPHTHEROIDS Normal [facility] Comment on above: Performed By: #### S PUTGS ####[facility] Onpqyaktgv8[address] [place] [address]Dr. Emelina Navarro EPITHELIALS <25 Normal [facility] Comment on above: Performed By: #### S PUTGS ####[facility] Fbgsyhalba06[address] [place] [address]Dr. Emelina Navarro FUNGAL ELEMENTS Normal [facility] Comment on above: Performed By: #### S PUTGS ####[facility] Xuzekxpofv5[address] [place] [id number]. Emelina Navarro GRAM NEG BACILLI Normal [facility] Comment on above: Performed By: #### S PUTGS ####[facility] Fvrirefjqo00[address] [place], [place] [address]Dr. Awildanitza Ramon GRAM NEG DIPPLOCOCCI Normal [facility] Comment on above: Performed By: #### S PUTGS ####[facility] Ztjakohwoe20[address] [place], [place] [address]Dr. Emelina Navarro GRAM POS BACILLI Normal [facility] Comment on above: Performed By: #### S PUTGS ####[facility] Xttlkgiohn8[address] [place], [place] [address]Dr. Emelina Navarro GRAM POSITIVE COCCI RARE Normal [facility] Comment on above: Performed By: #### S PUTGS ####[facility] Jczxrsrhbe2919[address] [place], [place] [address]Dr. Emelina Navarro WBC (Bld) [#/Vol] 10*3/uL Normal [facility] Comment on above: Performed By: #### S PUTGS ####[facility] Ardmcvzcdy56[address] [place], [place] [address]Dr. Emelina Navarro XR CHEST 1 Von 06-13-2022 XR CHEST 1 V Normal [facility] BNPon 06-12-2022 Natriuretic peptide B (Bld) [Mass/Vol] 6268.0 pg/mL Critically high <=900.0 [facility] Comment on above: Performed By: #### B STRAIGHT PIN MAKING MACHINE OPERATOR, CMP ####[facility] Urnidoeozi3[address] [place], [place] [address]Dr. Emelina Navarro CBC AUTO DIFFon 06-12-2022 BASO # 0.1 103/ul Normal 0.0-0.1 [facility] Comment on above: Performed By: #### C BC ####[facility] Pxxbjbfunt0684[address] [place], [place] [address]Dr. Emelina Navarro Basophils/100 WBC (Bld) 0.3 % Normal 0.2-2.0 [facility] Comment on above: Performed By: #### C BC ####[facility] Bvtkyflqxm3602 [place] [address]Dr. Emelina Navarro EO # 0.1 103/ul Normal 0.0-0.7 [facility] Comment on above: Performed By: #### C BC ####[facility] Oxmpwnmgew9377[address] [place], [place] [address]Dr. Emelina Navarro Eosinophils/100 WBC (Bld) 0.4 % Critically low 0.9-7.0 [facility] Comment on above: Performed By: #### C BC ####[facility] Apnctaqqar4454[address] [place], [place] [address]Dr. Emelina Navarro Erythrocyte distribution width (RBC) [Ratio] 17.7 % Critically high 11.0-15.0 [facility] Comment on above: Performed By: #### C BC ####[facility] Htbdnnyjco9317[address] [place], [place] [address]Dr. Emelina Navarro Hematocrit (Bld) [Volume fraction] 44.4 % Normal 42.0-54.0 [facility] Comment on above: Performed By: #### C BC ####[facility] Turftydzkw406[address] [place], [place] [address]Dr. Emelina Navarro Hemoglobin (Bld) [Mass/Vol] 14.3 g/dL Normal 14.0-18.0 [facility] Comment on above: Performed By: #### C BC ####[facility] Atcomhwthv4420[address] [place], [place] [address]Dr. Emelina Navarro IG # 0.11 10e3/ul Critically high 0.00-0.03 [facility] Comment on above: Performed By: #### C BC ####[facility] Gsufyowkrp[address]244[address] [place], [place] [address]Dr. Emelina Navarro IG % 0.5 % Normal 0.0-0.5 [facility] Comment on above: Performed By: #### C BC ####[facility] Hofaxkgumy2266[address] [place], [place] [address]Dr. Emelina Navarro LYMPH # 1.7 103/ul Normal 1.2-3.8 [facility] Comment on above: Performed By: #### C BC ####[facility] Qkpodpdgdr4202 [place] [address]Dr. Emelina Ramon Lymphocytes/100 WBC (Bld) 8.4 % Critically low 20.5-60.0 [facility] Comment on above: Performed By: #### C BC ####[facility] Ykeryuvydo23[address] [place] [address]Dr. Awildanitza Navarro MANUAL DIFF REQ NO Normal [facility] Comment on above: Performed By: #### C BC ####[facility] Evfczopnaj5119 [place] [address]Dr. Awildanitza Nvaarro MCH (RBC) [Entitic mass] 28.3 pg Normal 25.9-34.0 [facility] Comment on above: Performed By: #### C BC ####[facility] Skepyawtvz24[address] [place], [place] [address]Dr. Emelina Navarro MCHC (RBC) [Mass/Vol] 32.2 g/dL Normal 29.9-35.2 [facility] Comment on above: Performed By: #### C BC ####[facility] Zobxydbtdf8[address] [place], [place] [address]Dr. Emelina Navarro MCV (RBC) [Entitic vol] 87.9 fL Normal 80.0-94.0 [facility] Comment on above: Performed By: #### C BC ####[facility] Plwvrppkcc[address] [place], [place] [address]Dr. Emelina Navarro MONO # 1.4 103/ul Critically high 0.3-0.8 [facility] Comment on above: Performed By: #### C BC ####[facility] Mfbpdapkcl216[address] [place], [place] [address]Dr. Emelina Navarro Monocytes/100 WBC (Bld) 7.1 % Normal 1.7-12.0 [facility] Comment on above: Performed By: #### C BC ####[facility] Unkyyijwqu35[address] [place], [place] [address]Dr. Emelina Navarro NEUT # 16.8 103/ul Critically high 1.4-6.5 [facility] Comment on above: Performed By: #### C BC ####[facility] Ilesicalvj9[address] [place] [id number]. Emelina Navarro Neutrophils/100 WBC (Bld) 83.3 % Critically high 43.0-75.0 [facility] Comment on above: Performed By: #### C BC ####[facility] Gynsrmqofe2[address] [place] [id number]. Emelina Navarro Platelet mean volume (Bld) [Entitic vol] 10.0 fL Normal 9.5-13.5 [facility] Comment on above: Performed By: #### C BC ####[facility] Qgyexkxuxz6118 [place] [id number]. Emelina Navarro PLT 227 103/ul Normal 150-450 [facility] Comment on above: Performed By: #### C BC ####[facility] Ixcnmtxgik6098 [place] [id number]. Emelina Navarro RBC 5.05 106/ul Normal 4.70-6.10 [facility] Comment on above: Performed By: #### C BC ####[facility] Abyduiuhti2405 [place] [id number]. Emelina Navarro WBC 20.2 103/ul Critically high 4.0-11.0 [facility] Comment on above: Performed By: #### C BC ####[facility] Rfljbhcfrx[address] [place] [id number]. Emelina Navarro CULTURE BLOODon 06-12-2022 Microscopic examination of blood, culture Culture Observations: NO GROWTH AT 5 DAYS. Normal [facility] Comment on above: Performed By: #### B LDCX2 ####[facility] Otblrotoij0601 [place] [id number]. Emelina Navarro Microscopic examination of blood, culture Culture Observations: NO GROWTH AT 5 DAYS. Normal [facility] Comment on above: Performed By: #### B LDCX1 ####[facility] Ddeymshxul2136 [place] [id number]. Emelina Navarro Covid-19 PCR (CVDTB)on 05-20 SARS-CoV-2 (COVID-19) RNA RADHA+probe Ql (Unsp spec) Not detected Normal NOT DETECTED [facility] Comment on above: Result Comment: When diagnostic [...] for this test is supported by the [employer] and Human Service's declaration that [...] longer be used). Performed By: #### [facility] ####[facility] Zeohgbceme2734[address] [place], [place] [address]Dr. Emelina Navarro ER URINE PROFILEon 2 Bilirubin Ql (U) Negative Normal NEGATIVE [facility] Comment on above: Performed By: #### E RUR ####[facility] Pdemnbirhs81[address] [place], [place] [address]Dr. Emelina Navarro Clarity (U) CLEAR Normal CLEAR [facility] Comment on above: Performed By: #### E RUR ####[facility] Jrkvwsueqr8417[address] [place], [place] [address]Dr. Emelina Navarro Color (U) YELLOW Normal YELLOW [facility] Comment on above: Performed By: #### E RUR ####[facility] Uqfquwlpcp[address] [place], [place] [address]Dr. Emelina Navarro ERUAHD A micrscopic examina tion will be performed if indicated. Normal [facility] Comment on above: Performed By: #### E RUR ####[facility] I[address]zjbovxxp1264[address] [place], [place] [address]Dr. Emelina Navarro Glucose Ql (U) >1000 Abnormal NEGATIVE [facility] Comment on above: Performed By: #### E RUR ####[facility] Jbnywktyea79[address] [place] [address]Dr. Emelina Navarro Hemoglobin Ql (U) Negative Normal NEGATIVE [facility] Comment on above: Performed By: #### E RUR ####[facility] Wmqbwkcjql0995[address] [place], [place] [address]Dr. Emelina Navarro Ketones Ql (U) Negative Normal NEGATIVE [facility] Comment on above: Performed By: #### E RUR ####[facility] Yebwgfcpxc7338[address] [place], [place] [address]Dr. Emelina Navarro LEUKOCYTES Negative Normal NEGATIVE [facility] Comment on above: Performed By: #### E RUR ####[facility] Ixyvjiojwl32[address] [place], [place] [address]Dr. Emelina Navarro Nitrite Ql (U) Negative Normal NEGATIVE [facility] Comment on above: Performed By: #### E RUR ####[facility] Loonsqonvb818[address] [place], [place] [address]Dr. Emelina Navarro pH (U) 6.0 [pH] Normal 5-9 [facility] Comment on above: Performed By: #### E RUR ####[facility] Gcnoothgko[address] [place], [place] [address]Dr. Emelina Navarro SPEC GRAVITY 1.010 Normal 1.005-<=1. 025 [facility] Comment on above: Performed By: #### E RUR ####[facility] Qesfxtmnbl66[address] [place], [place] [address]Dr. Emelina Navarro UA PROTEIN Negative Normal NEGATIVE/ TRACE [facility] Comment on above: Performed By: #### E RUR ####[facility] Dkcxijsbmb[address] [place], [place] [address]Dr. Awildanitza Navarro UR MICRO IND NOT INDICATED Normal [facility] Comment on above: Performed By: #### E RUR ####[facility] Leqtlhwgmw0486[address] [place], [place] [address]Dr. Emelina Navarro Urobilinogen Qn (U) 1.0 {Ashley'U}/dL Normal 0.2 - 1. 0 [facility] Comment on above: Performed By: #### E RUR ####[facility] Oteokvypbw[address] [place] [address]Dr. Emelina Navarro LACTATE/LACTIC ACIDon 2021 Lactate [Moles/Vol] 1.2 mmol/L Normal 0.4-1.9 [facility] Comment on above: Performed By: #### L ACT ####[facility] Y[address]ysuzkfrp1146 [place] [address]Dr. Emelina Navarro PROF 14(COMP METB)on 022 Albumin [Mass/Vol] 3.4 g/dL Normal 3.4-5.0 [facility] Comment on above: Performed By: #### B STRAIGHT PIN MAKING MACHINE OPERATOR, CMP ####[facility] Cmvhtvuzdj[address] [place], [place] [address]Dr. Emelina Navarro Albumin/Globulin [Mass ratio] 0.8 {ratio} Normal [facility] Comment on above: Performed By: #### B STRAIGHT PIN MAKING MACHINE OPERATOR, CMP ####[facility] [address]zvefxnmbc[address] [place], [place] [address]Dr. Emelina Navarro ALP [Catalytic activity/Vol] 100 U/L Normal 46-116 [facility] Comment on above: Performed By: #### B STRAIGHT PIN MAKING MACHINE OPERATOR, CMP ####[facility] Fpiesfaqmh[address] [place], [place] [address]Dr. Emelina Navarro ALT [Catalytic activity/Vol] 26 U/L Normal 16-63 [facility] Comment on above: Performed By: #### B STRAIGHT PIN MAKING MACHINE OPERATOR, CMP ####[facility] Ykwzjzpkaj044[address] [place] [address]Dr. Emelina Navarro Anion gap [Moles/Vol] 11.3 mmol/L Normal [facility] Comment on above: Performed By: #### B STRAIGHT PIN MAKING MACHINE OPERATOR, CMP ####[facility] V[address]af[address] [place], [place] [address]Dr. Emelina Navarro AST [Catalytic activity/Vol] 19 U/L Normal 15-37 [facility] Comment on above: Performed By: #### B STRAIGHT PIN MAKING MACHINE OPERATOR, CMP ####[facility] [address]qkwlhhyn[address] [place], [place] [address]Dr. Emelina Navarro Bilirubin [Mass/Vol] 1.4 mg/dL Critically high 0.2-1.0 [facility] Comment on above: Performed By: #### B STRAIGHT PIN MAKING MACHINE OPERATOR, CMP ####[facility] Ofhgneptqh7[address] [place], [place] [address]Dr. Emelina Navarro Calcium [Mass/Vol] 9.1 mg/dL Normal 8.5-10.1 [facility] Comment on above: Performed By: #### B STRAIGHT PIN MAKING MACHINE OPERATOR, CMP ####[facility] Coqvkqszne8[address] [place], [place] [address]Dr. Emelina Navarro Chloride [Moles/Vol] 103 mmol/L Normal 98-107 [facility] Comment on above: Performed By: #### B STRAIGHT PIN MAKING MACHINE OPERATOR, CMP ####[facility] Npkpyavqqe3[address] [place], [place] [address]Dr. Awildanitza Navarro CO2 [Moles/Vol] 27.8 mmol/L Normal 21.0-32.0 [facility] Comment on above: Performed By: #### B STRAIGHT PIN MAKING MACHINE OPERATOR, CMP ####[facility] Kuaumowoyf[address] [place], [place] [address]Dr. Emelina Ramon Creatinine [Mass/Vol] 1.75 mg/dL Critically high 0.70-1.30 [facility] Comment on above: Performed By: #### B STRAIGHT PIN MAKING MACHINE OPERATOR, CMP ####[facility] Aihssngxoy7[address] [place], [place] [address]Dr. Awildanitza Ramon EGFR-AF SURINAMESE 47 mL/min/1.73m2 Critically low >=60 [facility] Comment on above: Performed By: #### B STRAIGHT PIN MAKING MACHINE OPERATOR, CMP ####[facility] Kiymmlfwxd8187[address] [place], [place] [address]Dr. Awildanitza Ramon EGFR-NON AF SURINAMESE 39 mL/min/1.73m2 Critically low >=60 [facility] Comment on above: Performed By: #### B STRAIGHT PIN MAKING MACHINE OPERATOR, CMP ####[facility] Xadibggysa9[address] [place], [place] [address]Dr. Emelina Navarro Globulin (S) [Mass/Vol] 4.1 g/dL Normal [facility] Comment on above: Performed By: #### B STRAIGHT PIN MAKING MACHINE OPERATOR, CMP ####[facility] [address]wi[address] [place] [address]Dr. Emelina Navarro Glucose [Mass/Vol] 120 mg/dL Critically high 74-106 [facility] Comment on above: Performed By: #### B STRAIGHT PIN MAKING MACHINE OPERATOR, CMP ####[facility] Ntxxbmrzgl[address] [place], [place] [address]Dr. Awildanitza Navarro Potassium [Moles/Vol] 4.1 mmol/L Normal 3.5-5.1 [facility] Comment on above: Performed By: #### B STRAIGHT PIN MAKING MACHINE OPERATOR, CMP ####[facility] Fodsgmqxvr6278[address] [place], [place] [address]Dr. Awildanitza Navarro Protein [Mass/Vol] 7.5 g/dL Normal 6.4-8.2 [facility] Comment on above: Performed By: #### B STRAIGHT PIN MAKING MACHINE OPERATOR, CMP ####[facility] Skmmbnwcbd7[address] [place], [place] [address]Dr. Emelina Navarro Sodium [Moles/Vol] 138 mmol/L Normal 136-145 [facility] Comment on above: Performed By: #### B STRAIGHT PIN MAKING MACHINE OPERATOR, CMP ####[facility] Mrxvvrfyjk427[address] [place], [place] [address]Dr. Emelina Navarro Urea nitrogen [Mass/Vol] 24.0 mg/dL Critically high 7.0-18.0 [facility] Comment on above: Performed By: #### B STRAIGHT PIN MAKING MACHINE OPERATOR, CMP ####[facility] Vczkxufpgc[address] [place], [place] [address]Dr. Emelina Navarro Urea nitrogen/Creatinine [Mass ratio] 13.7 mg/mg Normal [facility] Comment on above: Performed By: #### B STRAIGHT PIN MAKING MACHINE OPERATOR, CMP ####[facility] Srsjzndjsq[address] [place], [place] [address]Dr. Emelina Navarro SPUTUM CULTUREon 05-11-2022 Epithelial cells LM Ql (Urine sed) Few Normal [facility] Comment on above: Performed By: #### C XSPTUM ####[facility] Okmwsknzgh20[address] [place], [place] [address]Dr. Emelina Navarro Gram Stain Evaluation Comment Normal [facility] Comment on above: Result Comment: This specimen is of good quality and is acceptable for routinebacterial culture. Performed By: #### C XSPTUM ####[facility] N[address]cpch[address] [place] [address]Dr. Emelina Navarro Lower Respiratory Culture Final report Normal [facility] Comment on above: Performed By: #### C XSPTUM ####[facility] Puy[address]myjybg60[address] [place] [address]Dr. Emelina Navarro Result 1 Comment Normal [facility] Comment on above: Result Comment: Few gram positive cocci Performed By: #### C XSPTUM ####[facility] Hquorqjfly162[address] [place], [place] [address]Dr. Emelina Navarro Result Comment: Rout ine respiratory cedric Result 2 Normal [facility] Comment on above: Performed By: #### C XSPTUM ####[facility] Rhxrhbazie9168[address] [place], [place] [address]Dr. Emelina Navarro Result 3 Normal [facility] Comment on above: Performed By: #### C XSPTUM ####[facility] Cdmdxngvym507[address] [place], [place] [address]Dr. Emelina Navarro Result 4 Normal [facility] Comment on above: Performed By: #### C XSPTUM ####[facility] Npolnjwcvd7[address] [place], [place] [address]Dr. Emelina Navarro White Blood Cells Few Normal [facility] Comment on above: Performed By: #### C XSPTUM ####[facility] Ejlxerjqfh5[address] [place], [place] [address]Dr. Emelina Navarro CBC W MANUAL DIFFon 05-10-20 22 ATYPICAL LYMPH # Normal [facility] Comment on above: Performed By: #### C BCMAN ####[facility] Muhnpgsvih35[address] [place] [address]Dr. Emelina Navarro ATYPICAL LYMPH % Normal [facility] Comment on above: Performed By: #### C BCMAN ####[facility] Dgitjcsmba7[address] [place], [place] [address]Dr. Emelina Navarro BAND # 0.5 103/ul Critically high 0.0-0.3 [facility] Comment on above: Performed By: #### C PURVI ####[facility] Xsnjhqtury9373 [place] [id number]. Emelina Navarro BAND % 2 % Normal 0-5 [facility] Comment on above: Performed By: #### C BCADRIAN ####[facility] Psgfgizgew5657 [place] [id number]. Emelina Navarro BASOM # 0.00 103/ul Normal 0.00-0.10 [facility] Comment on above: Performed By: #### C BCADRIAN ####[facility] Xzatbbeyqp2267 [place] [address]Dr. Emelina Navarro BASOM % 0.0 % Critically low 0.2-2.0 [facility] Comment on above: Performed By: #### C BCADRIAN ####[facility] Hbxdosgejn5749 [place] [address]Dr. Emelina Navarro BLAST # Normal [facility] Comment on above: Performed By: #### C BCADRIAN ####[facility] Zkfavdabfj4257 [place] [address]Dr. Yinitza Navarro BLAST % Normal [facility] Comment on above: Performed By: #### C BCADRIAN ####[facility] Ozrkhxjhfy[address] [place] [address]Dr. Emelina Navarro CORRECTED WBC Normal 4.0-11.0 [facility] Comment on above: Performed By: #### C BCADRIAN ####[facility] Ujahthtuqb46[address] [place] [address]Dr. Emelina Navarro EOS # 0.24 103/ul Normal 0.00-0.70 [facility] Comment on above: Performed By: #### C BCADRIAN ####[facility] Nfdfyykgfh1470 [place] [address]Dr. Emelina Navarro EOS% 1.0 % Normal 0.9-7.0 [facility] Comment on above: Performed By: #### C BCADRIAN ####[facility] Cxhwstkmab0600 [place] [address]Dr. Emelina Navarro HCT 41.6 % Critically low 42.0-54.0 [facility] Comment on above: Performed By: #### Poonam LOJA ####[facility] E[address]itls[address]i34[address] [place], [place] [address]Gz. Emelina Navarro HGB 13.2 g/dl Critically low 14.0-18.0 [facility] Comment on above: Performed By: #### Poonam LOJA ####[facility] Xqtyubyyln9018 [place], [place] [address]Aj. Emelina Navarro LYMPHM # 0.71 103/ul Critically low 1.20-3.80 [facility] Comment on above: Performed By: #### Poonam LOJA ####[facility] Lnjktscpyb2586 [place] [id number]. Emelina Navarro LYMPHM% 3.0 % Critically low 20.5-60.0 [facility] Comment on above: Performed By: #### Poonam LOJA ####[facility] Dpgbszplpq4719 [place] [id number]. Emelina Navarro MCH 28.3 pg Normal 25.9-34.0 [facility] Comment on above: Performed By: #### Poonam LOJA ####[facility] Quncrjvbnb9001 [place] [id number]. Emelina Navarro MCHC 31.7 g/dl Normal 29.9-35.2 [facility] Comment on above: Performed By: #### Poonam LOJA ####[facility] Oekygvsxiu9741 [place], [place] [address]Ch. Emelina Navarro MCV 89.3 fL Normal 80.0-94.0 [facility] Comment on above: Performed By: #### Poonam LOJA ####[facility] Kmjcciyqtu5888 [place], [place] [address]Fr. Emelina Navarro METAMYELOCYTE # Normal [facility] Comment on above: Performed By: #### Poonam LOJA ####[facility] Tmzyxhchyx9082 [place] [id number]. Emelina Navarro METAMYELOCYTE % Normal [facility] Comment on above: Performed By: #### Poonam LOJA ####[facility] Gwnropgwgg9178 [place] [id number]. Emelina Navarro MONOM# 0.24 103/ul Critically low 0.30-0.80 [facility] Comment on above: Performed By: #### C PURVI ####[facility] Phstdaaxqf0115 [place] [id number]. Emelina Navarro MONOM% 1.0 % Critically low 1.7-12.0 [facility] Comment on above: Performed By: #### C PURVI ####[facility] Wvcsowodny8348 [place] [id number]. Emelina Navarro MPV 9.7 fL Normal 9.5-13.5 [facility] Comment on above: Performed By: #### C PURVI ####[facility] Kmqtrdtwwr9536 [place] [address]Dr. Emelina Navarro MYELOCYTE # Normal [facility] Comment on above: Performed By: #### C PURVI ####[facility] Xkpurhcitj9725 [place] [id number]. Emelina Navarro MYELOCYTE % Normal [facility] Comment on above: Performed By: #### C PURVI ####[facility] Dkcilkjvgc7448 [place] [id number]. Emelina Navarro NRBC Normal [facility] Comment on above: Performed By: #### C PURVI ####[facility] Jdtylkbpwo4362 [place] [id number]. Emelina Navarro PLT 192 103/ul Normal 150-450 [facility] Comment on above: Performed By: #### C PURVI ####[facility] Iihplzycse1561 [place] [id number]. Emelina Navarro RBC 4.66 106/ul Critically low 4.70-6.10 [facility] Comment on above: Performed By: #### C PURVI ####[facility] Snivfdabgm6009 [place] [id number]. Emelina Navarro RDW 16.1 % Critically high 11.0-15.0 [facility] Comment on above: Performed By: #### C PURVI ####[facility] Bgbgacexji9133 [place] [address]Dr. Emelina Navarro SEG # 21.95 103/ul Critically high 1.40-6.50 [facility] Comment on above: Performed By: #### C PURVI ####[facility] Ykbebdvipr8779 [place] [address]Dr. Emelina Navarro SEG % 93.0 % Critically high 43.0-75.0 [facility] Comment on above: Performed By: #### C PURVI ####[facility] Kagaupguhw1076 [place] [address]Dr. Emelina Navarro WBC 23.6 103/ul Critically high 4.0-11.0 [facility] Comment on above: Performed By: #### C PURVI ####[facility] Zuruwbqodf7716 [place] [address]Dr. Emelina Ramon CRPon 05-10-2022 CRP 2.3 mg/dL Critically high <=1.0 [facility] Comment on above: Performed By: #### C MP, HSTROPN, CRP ####[facility] Nrqkioioav8438 [place] [address]Dr. Emelina Ramon DIGOXINon 05-10-2022 DIG 0.6 ng/mL Critically low 0.9-2.0 [facility] Comment on above: Performed By: #### D IG ####[facility] Kqmgiucvik4214 [place] [address]Dr. Emelina Navarro POINT OF CARE GLUCOSEon 04-20 Glucose [Mass/Vol] 246 mg/dL Critically high 74-106 [facility] Comment on above: Performed By: #### P OCGLUC ####[facility] Tdcjsgwywv2137 [place] [address]Dr. Emelina Navarro PROF 14(COMP METB)on 022 Albumin [Mass/Vol] 3.0 g/dL Critically low 3.4-5.0 [facility] Comment on above: Performed By: #### C MP, HSTROPN, CRP ####[facility] Atalcevisa9606 [place] [address]Dr. Emelina Navarro Albumin/Globulin [Mass ratio] 0.7 {ratio} Normal [facility] Comment on above: Performed By: #### C MP, HSTROPN, CRP ####[facility] Djarfdexkd3350 [place] [address]Dr. Emelina Navarro ALP [Catalytic activity/Vol] 95 U/L Normal 46-116 [facility] Comment on above: Performed By: #### C MP, HSTROPN, CRP ####[facility] Ynmvefeshc1569 [place] [address]Dr. Emelina Navarro ALT [Catalytic activity/Vol] 75 U/L Critically high 16-63 [facility] Comment on above: Performed By: #### C MP, HSTROPN, CRP ####[facility] Jzjbvcxnnd7246 [place] [address]Dr. Emelina Navarro Anion gap [Moles/Vol] 11.1 mmol/L Normal [facility] Comment on above: Performed By: #### C MP, HSTROPN, CRP ####[facility] Fvmignnnqs4764[address] [place], [place] [address]Dr. Emelina Navarro AST [Catalytic activity/Vol] 25 U/L Normal 15-37 [facility] Comment on above: Performed By: #### C MP, HSTROPN, CRP ####[facility] Owvfklckst2227 [place] [address]Dr. Emelina Navarro Bilirubin [Mass/Vol] 0.4 mg/dL Normal 0.2-1.0 [facility] Comment on above: Performed By: #### C MP, HSTROPN, CRP ####[facility] Djudrmvunx7815 [place] [address]Dr. Emelina Navarro Calcium [Mass/Vol] 8.3 mg/dL Critically low 8.5-10.1 [facility] Comment on above: Performed By: #### C MP, HSTROPN, CRP ####[facility] Kftlqgeylv5014 [place] [address]Dr. Emelina Navarro Chloride [Moles/Vol] 100 mmol/L Normal 98-107 [facility] Comment on above: Performed By: #### C MP, HSTROPN, CRP ####[facility] Vcbzwqfxql8216 [place] [address]Dr. Emelina Navarro CO2 [Moles/Vol] 28.6 mmol/L Normal 21.0-32.0 [facility] Comment on above: Performed By: #### C MP, HSTROPN, CRP ####[facility] Wqzhksszxt9119 [place] [address]Dr. Emelina Navarro Creatinine [Mass/Vol] 1.58 mg/dL Critically high 0.70-1.30 [facility] Comment on above: Performed By: #### C MP, HSTROPN, CRP ####[facility] Djyfcfarxb18[address] [place], [place] [address]Dr. Emelina Navarro EGFR-AF SURINAMESE 53 mL/min/1.73m2 Critically low >=60 [facility] Comment on above: Performed By: #### C MP, HSTROPN, CRP ####[facility] Ccpjkjhtmr[address] [place], [place] [address]Dr. Emelina Navarro EGFR-NON AF SURINAMESE 44 mL/min/1.73m2 Critically low >=60 [facility] Comment on above: Performed By: #### C MP, HSTROPN, CRP ####[facility] Cuwthpdnbf35[address] [place], [place] [address]Dr. Emelina Navarro Globulin (S) [Mass/Vol] 4.2 g/dL Normal [facility] Comment on above: Performed By: #### C MP, HSTROPN, CRP ####[facility] Bnqdksonwy0945 [place] [address]Dr. Emelina Navarro Glucose [Mass/Vol] 230 mg/dL Critically high 74-106 [facility] Comment on above: Performed By: #### C MP, HSTROPN, CRP ####[facility] Fsvnvxuucj68[address] [place], [place] [address]Dr. Emelina Navarro Potassium [Moles/Vol] 4.7 mmol/L Normal 3.5-5.1 [facility] Comment on above: Performed By: #### C MP, HSTROPN, CRP ####[facility] Lhtcirljsm3352 [place] [address]Dr. Emelina Navarro Protein [Mass/Vol] 7.2 g/dL Normal 6.4-8.2 [facility] Comment on above: Performed By: #### C MP, HSTROPN, CRP ####[facility] Kknynzljik0431 [place] [address]Dr. Emelina Navarro Sodium [Moles/Vol] 135 mmol/L Critically low 136-145 [facility] Comment on above: Performed By: #### C MP, HSTROPN, CRP ####[facility] Dxpxyyqntm4397 [place] [address]Dr. Emelina Navarro Urea nitrogen [Mass/Vol] 45.0 mg/dL Critically high 7.0-18.0 [facility] Comment on above: Performed By: #### C MP, HSTROPN, CRP ####[facility] Dlzdkmzkuu9760 [place] [address]Dr. Emelina Navarro Urea nitrogen/Creatinine [Mass ratio] 28.5 mg/mg Normal [facility] Comment on above: Performed By: #### C MP, HSTROPN, CRP ####[facility] Vkvurlrvzh6337 [place] [address]Dr. Emelina Navarro PROTIMEon 05-10-2022 INR Coag (PPP) [Relative time] 2.93 {INR} Normal [facility] Comment on above: Performed By: #### P T ####[facility] Hghmgduqnw[address] [place], [place] [address]Dr. Emelina Navarro INR GUIDELINES SEE BELOW Normal [facility] Comment on above: Result Comment: WENDY RED INR: 2.0 - 3.0 CONDITIONS NOT LISTED BELOW 2.5 - 3.5 FOR PROSTHETIC HEART VALVE REPLACEMENT 2.5 - 3.5 RECURRENT THROMBOSIS Performed By: #### P T ####[facility] Nftvepbvuh7[address] [place], [place] [address]Dr. Emelina Navarro PT Coag (PPP) [Time] 29.5 s Critically high 9.0-11.6 [facility] Comment on above: Performed By: #### P T ####[facility] Vnmwvylhzq6963 [place] [address]Dr. Emelina Navarro TROPONIN, HIGH SENSITIVITYon 05-10-2022 HSTROP 38.3 pg/mL Normal 4.0-76.1 [facility] Comment on above: Result Comment: CUT- OFF POINTS HAVE BEEN ESTABLISHED BASED ON THE FOURTH UNIVERSAL DEFINITIONS OF MYOCARDIALINFARCTION. THE UPPER REFERENCE LIMIT (URL) OF TROPONIN, DEFINED THE 99TH PERCENTILE OFcTnI DISTRIBUTION IN A REFERENCE POPULATION, HAS BEEN CONFIRMED THE DECISION THRESHOLDFOR [place] DIAGNOSIS. Performed By: #### C MP, HSTROPN, CRP ####[facility] Zhthmihpan186[address] [place], [place] [address]Dr. Emelina Ramon CBC AUTO DIFFon 05-09-2022 BASO # 0.0 103/ul Normal 0.0-0.1 [facility] Comment on above: Performed By: #### C BC ####[facility] Gdmcnqsrjz4839[address] [place], [place] [address]Dr. Emelina Navarro Basophils/100 WBC (Bld) 0.1 % Critically low 0.2-2.0 [facility] Comment on above: Performed By: #### C BC ####[facility] Gkzhaovjlz156[address] [place], [place] [address]Dr. Emelina Navarro EO # 0.0 103/ul Normal 0.0-0.7 [facility] Comment on above: Performed By: #### C BC ####[facility] Ftbfhbrioi7796[address] [place], [place] [address]Dr. Emelina Navarro Eosinophils/100 WBC (Bld) 0.0 % Critically low 0.9-7.0 [facility] Comment on above: Performed By: #### C BC ####[facility] Eqmxwecqjy308[address] [place], [place] [address]Dr. Emelina Navarro Erythrocyte distribution width (RBC) [Ratio] 15.9 % Critically high 11.0-15.0 [facility] Comment on above: Performed By: #### C BC ####[facility] Ptdgahqjlw112[address] [place], [place] [address]Dr. Emelina Navarro Hematocrit (Bld) [Volume fraction] 42.7 % Normal 42.0-54.0 [facility] Comment on above: Performed By: #### C BC ####[facility] Cgtmxtabhj7934 [place] [address]Dr. Emelina Navarro Hemoglobin (Bld) [Mass/Vol] 13.5 g/dL Critically low 14.0-18.0 [facility] Comment on above: Performed By: #### C BC ####[facility] Dpayhttqkl086[address] [place], [place] [address]Dr. Emelina Navarro IG # 0.14 10e3/ul Critically high 0.00-0.03 [facility] Comment on above: Performed By: #### C BC ####[facility] Tezrurkofr876[address] [place], [place] [address]Dr. Emelina Navarro IG % 0.8 % Critically high 0.0-0.5 [facility] Comment on above: Performed By: #### C BC ####[facility] Klnrajeuyd12[address] [place], [place] [address]DrWesley Navarro LYMPH # 1.1 103/ul Critically low 1.2-3.8 [facility] Comment on above: Performed By: #### C BC ####[facility] Rqgshltqzn6257[address] [place], [place] [address]Dr. Emelina Navarro Lymphocytes/100 WBC (Bld) 6.2 % Critically low 20.5-60.0 [facility] Comment on above: Performed By: #### C BC ####[facility] Ihcmlizdrv6409[address] [place], [place] [address]Dr. Emelina Navarro MANUAL DIFF REQ NO Normal [facility] Comment on above: Performed By: #### C BC ####[facility] Sagjsbcedn312[address] [place], [place] [address]Dr. Emelina Navarro MCH (RBC) [Entitic mass] 28.5 pg Normal 25.9-34.0 [facility] Comment on above: Performed By: #### C BC ####[facility] Buoykgvvgy6745[address] [place], [place] [address]Dr. Emelina Navarro MCHC (RBC) [Mass/Vol] 31.6 g/dL Normal 29.9-35.2 [facility] Comment on above: Performed By: #### C BC ####[facility] C[address]wqwjagq24[address] [place], [place] [address]DrWesley Emelina Ramon MCV (RBC) [Entitic vol] 90.3 fL Normal 80.0-94.0 [facility] Comment on above: Performed By: #### C BC ####[facility] Ykxatqzvss714[address] [place], [place] [address]DrWesley Navarro MONO # 0.4 103/ul Normal 0.3-0.8 [facility] Comment on above: Performed By: #### C BC ####[facility] Ntlhvfalrl94[address] [place], [place] [address]DrWesley Navarro Monocytes/100 WBC (Bld) 2.1 % Normal 1.7-12.0 [facility] Comment on above: Performed By: #### C BC ####[facility] Eeuuhlvdhh9577[address] [place], [place] [address]DrWesley Navarro NEUT # 16.2 103/ul Critically high 1.4-6.5 [facility] Comment on above: Performed By: #### C BC ####[facility] Lrsaowzzud6789[address] [place], [place] [address]DrWesley Navarro Neutrophils/100 WBC (Bld) 90.8 % Critically high 43.0-75.0 [facility] Comment on above: Performed By: #### C BC ####[facility] [address]zlxyrip[address] [place] [place], [place] [address]DrWesley Navarro Platelet mean volume (Bld) [Entitic vol] 10.2 fL Normal 9.5-13.5 [facility] Comment on above: Performed By: #### C BC ####[facility] X[address] [place], [place] [address]DrWesley Navarro PLT 215 103/ul Normal 150-450 [facility] Comment on above: Performed By: #### C BC ####[facility] Affgtwaejm[address] [place], [place] [address]DrWesley Navarro RBC 4.73 106/ul Normal 4.70-6.10 [facility] Comment on above: Performed By: #### C BC ####[facility] [address]aoz[address] [place] [address]Dr. Emelina Navarro WBC 17.8 103/ul Critically high 4.0-11.0 [facility] Comment on above: Performed By: #### C BC ####[facility] Zwygiuljvk7[address] [place] [id number]. Emelina Navarro CRPon 05-09-2022 CRP 4.4 mg/dL Critically high <=1.0 [facility] Comment on above: Performed By: #### C MP, HSTROPN, CRP ####[facility] Z[address]ualdyhe[address] [place] [address]Dr. Emelina Navarro DIGOXINon 05-09-2022 DIG 1.3 ng/mL Normal 0.9-2.0 [facility] Comment on above: Performed By: #### D IG ####[facility] Cvuensbqek[address] [place] [address]Dr. Emelina Navarro POINT OF CARE GLUCOSEon 04-20 Glucose [Mass/Vol] 319 mg/dL Critically high 74-106 [facility] Comment on above: Performed By: #### P OCGLUC ####[facility] Hkwoveugfd[address] [place] [address]Dr. Emelina Navarro Glucose [Mass/Vol] 259 mg/dL Critically high 74-106 [facility] Comment on above: Performed By: #### P OCGLUC ####[facility] Evptpyipoj[address] [place] [address]Dr. Emelina Navarro Glucose [Mass/Vol] 564 mg/dL Critically high 74-106 [facility] Comment on above: Result Comment: NURS E NOTIFIED Performed By: #### P OCGLUC ####[facility] Ecvkurlcif7[address] [place] [address]Dr. Emelina Navarro PROF 14(COMP METB)on 022 Albumin [Mass/Vol] 3.1 g/dL Critically low 3.4-5.0 [facility] Comment on above: Performed By: #### C MP, HSTROPN, CRP ####[facility] Wwshwubyql[address] [place] [address]Dr. Emelina Navarro Albumin/Globulin [Mass ratio] 0.7 {ratio} Normal [facility] Comment on above: Performed By: #### C MP, HSTROPN, CRP ####[facility] Hxknndjgis6[address] [place] [address]Dr. Emelina Navarro ALP [Catalytic activity/Vol] 102 U/L Normal 46-116 [facility] Comment on above: Performed By: #### C MP, HSTROPN, CRP ####[facility] Bbhtssvxfe0604 [place] [address]Dr. Emelina Navarro ALT [Catalytic activity/Vol] 81 U/L Critically high 16-63 [facility] Comment on above: Performed By: #### C MP, HSTROPN, CRP ####[facility] Juqrqeupvk[address] [place], [place] [address]Dr. Emelina Navarro Anion gap [Moles/Vol] 12.3 mmol/L Normal [facility] Comment on above: Performed By: #### C MP, HSTROPN, CRP ####[facility] Debssyfosp2[address] [place], [place] [address]Dr. Emelina Navarro AST [Catalytic activity/Vol] 22 U/L Normal 15-37 [facility] Comment on above: Performed By: #### C MP, HSTROPN, CRP ####[facility] Pzwoliilwq[address] [place] [address]Dr. Emelina Navarro Bilirubin [Mass/Vol] 0.6 mg/dL Normal 0.2-1.0 [facility] Comment on above: Performed By: #### C MP, HSTROPN, CRP ####[facility] Dogvnejnnr[address] [place] [address]Dr. Emelina Navarro Calcium [Mass/Vol] 8.6 mg/dL Normal 8.5-10.1 [facility] Comment on above: Performed By: #### C MP, HSTROPN, CRP ####[facility] Qjdicybsgn4577 [place] [address]Dr. Emelina Navarro Chloride [Moles/Vol] 100 mmol/L Normal 98-107 [facility] Comment on above: Performed By: #### C MP, HSTROPN, CRP ####[facility] Iqnpcocagt7582 [place] [address]Dr. Emelina Navarro CO2 [Moles/Vol] 28.4 mmol/L Normal 21.0-32.0 [facility] Comment on above: Performed By: #### C MP, HSTROPN, CRP ####[facility] Thfkrvvdsi28[address] [place] [address]Dr. Emelina Navarro Creatinine [Mass/Vol] 1.91 mg/dL Critically high 0.70-1.30 [facility] Comment on above: Performed By: #### C MP, HSTROPN, CRP ####[facility] Jurgfrryry[address] [place] [address]Dr. Emelina Navarro EGFR-AF SURINAMESE 43 mL/min/1.73m2 Critically low >=60 [facility] Comment on above: Performed By: #### C MP, HSTROPN, CRP ####[facility] Jxtrrmaqmp[address] [place], [place] [address]Dr. Emelina Navarro EGFR-NON AF SURINAMESE 35 mL/min/1.73m2 Critically low >=60 [facility] Comment on above: Performed By: #### C MP, HSTROPN, CRP ####[facility] Nvtrzewtcd2[address] [place] [address]Dr. Emelina Navarro Globulin (S) [Mass/Vol] 4.6 g/dL Normal [facility] Comment on above: Performed By: #### C MP, HSTROPN, CRP ####[facility] Uknkvqoouz8[address] [place] [address]Dr. Emelina Navarro Glucose [Mass/Vol] 242 mg/dL Critically high 74-106 [facility] Comment on above: Performed By: #### C MP, HSTROPN, CRP ####[facility] Sawwarhjlh[address] [place] [address]Dr. Emelina Navarro Potassium [Moles/Vol] 4.7 mmol/L Normal 3.5-5.1 [facility] Comment on above: Performed By: #### C MP, HSTROPN, CRP ####[facility] Agdhxuzbie[address] [place] [address]Dr. Emelina Navarro Protein [Mass/Vol] 7.7 g/dL Normal 6.4-8.2 [facility] Comment on above: Performed By: #### C MP, HSTROPN, CRP ####[facility] Gofynjdkqb[address] [place] [address]Dr. Emelina Navarro Sodium [Moles/Vol] 136 mmol/L Normal 136-145 [facility] Comment on above: Performed By: #### C MP, HSTROPN, CRP ####[facility] Astmnsoegc014[address] [place], [place] [address]Dr. Emelina Navarro Urea nitrogen [Mass/Vol] 48.0 mg/dL Critically high 7.0-18.0 [facility] Comment on above: Performed By: #### C MP, HSTROPN, CRP ####[facility] Hbtxjpsupc[address] [place], [place] [address]Dr. Emelina Navarro Urea nitrogen/Creatinine [Mass ratio] 25.1 mg/mg Normal [facility] Comment on above: Performed By: #### C MP, HSTROPN, CRP ####[facility] Eywtakvjgu[address] [place], [place] [address]Dr. Emelina Navarro PROTIMEon 05-09-2022 INR Coag (PPP) [Relative time] 2.59 {INR} Normal [facility] Comment on above: Performed By: #### P T ####[facility] Cnbxdpahbp[address] [place], [place] [address]Dr. Emelina Navarro INR GUIDELINES SEE BELOW Normal [facility] Comment on above: Result Comment: WENDY RED INR: 2.0 - 3.0 CONDITIONS NOT LISTED BELOW 2.5 - 3.5 FOR PROSTHETIC HEART VALVE REPLACEMENT 2.5 - 3.5 RECURRENT THROMBOSIS Performed By: #### P T ####[facility] Izisikrsbl[address] [place] [address]Dr. Emelina Navarro PT Coag (PPP) [Time] 26.3 s Critically high 9.0-11.6 [facility] Comment on above: Performed By: #### P T ####[facility] Kfszhbilar[address] [place] [address]Dr. Emelina Navarro TROPONIN, HIGH SENSITIVITYon 05-09-2022 HSTROP 45.4 pg/mL Normal 4.0-76.1 [facility] Comment on above: Result Comment: CUT- OFF POINTS HAVE BEEN ESTABLISHED BASED ON THE FOURTH UNIVERSAL DEFINITIONS OF MYOCARDIALINFARCTION. THE UPPER REFERENCE LIMIT (URL) OF TROPONIN, DEFINED THE 99TH PERCENTILE OFcTnI DISTRIBUTION IN A REFERENCE POPULATION, HAS BEEN CONFIRMED THE DECISION THRESHOLDFOR [place] DIAGNOSIS. Performed By: #### C MP, HSTROPN, CRP ####[facility] Hdtnowkrxe[address] [place], [place] [address]Dr. Emelina Ramon XR FOOT RT MIN 3 VIEWSon XR FOOT RT MIN 3 VIEWS Normal [facility] CARDIAC IMTIAZ 3-6on 2 CK [Catalytic activity/Vol] 34 U/L Critically low 39-308 [facility] Comment on above: Performed By: #### C MREP ####[facility] X[address]awljjfv[address] [place], [place] [address]Dr. Emelina Ramon CK.MB [Mass/Vol] 3.37 ng/mL Normal <=3.60 [facility] Comment on above: Performed By: #### C MREP ####[facility] Hpqakeoeey[address] [place] [address]Dr. Emelina Ramon HSTROP 53.5 pg/mL Normal 4.0-76.1 [facility] Comment on above: Result Comment: CUT- OFF POINTS HAVE BEEN ESTABLISHED BASED ON THE FOURTH UNIVERSAL DEFINITIONS OF MYOCARDIALINFARCTION. THE UPPER REFERENCE LIMIT (URL) OF TROPONIN, DEFINED THE 99TH PERCENTILE OFcTnI DISTRIBUTION IN A REFERENCE POPULATION, HAS BEEN CONFIRMED THE DECISION THRESHOLDFOR [place] DIAGNOSIS. Performed By: #### C MREP ####[facility] Q[address]vknpbqdn[address] [place], [place] [address]Dr. Emelina Navarro CK [Catalytic activity/Vol] 39 U/L Normal 39-308 [facility] Comment on above: Performed By: #### C MREP ####[facility] [address]nfzwszb27[address] [place] [id number]. Emelina Navarro CK.MB [Mass/Vol] 2.74 ng/mL Normal <=3.60 [facility] Comment on above: Performed By: #### C MREP ####[facility] Zdidvczdpx4637 [place] [id number]. Emelina Navarro HSTROP 68.7 pg/mL Normal 4.0-76.1 [facility] Comment on above: Result Comment: CUT- OFF POINTS HAVE BEEN ESTABLISHED BASED ON THE FOURTH UNIVERSAL DEFINITIONS OF MYOCARDIALINFARCTION. THE UPPER REFERENCE LIMIT (URL) OF TROPONIN, DEFINED THE 99TH PERCENTILE OFcTnI DISTRIBUTION IN A REFERENCE POPULATION, HAS BEEN CONFIRMED THE DECISION THRESHOLDFOR [place] DIAGNOSIS. Performed By: #### C MREP ####[facility] Y[address]zwrviwj[address] [place] [address]Dr. Emelina Navarro CARDIAC IMTIAZ ADMITon 05-08- 022 CK [Catalytic activity/Vol] 30 U/L Critically low 39-308 [facility] Comment on above: Performed By: #### SHIVAM Mcgee MP ####[facility] [address]avila[address] [place] [address]Dr. Emelina Navarro CK.MB [Mass/Vol] 2.88 ng/mL Normal <=3.60 [facility] Comment on above: Performed By: #### Everardo PRAJAPATI CMADM ####[facility] [address]zbvizretq30[address] [place] [id number]. Emelina Navarro HSTROP 69.9 pg/mL Normal 4.0-76.1 [facility] Comment on above: Result Comment: CUT- OFF POINTS HAVE BEEN ESTABLISHED BASED ON THE FOURTH UNIVERSAL DEFINITIONS OF MYOCARDIALINFARCTION. THE UPPER REFERENCE LIMIT (URL) OF TROPONIN, DEFINED THE 99TH PERCENTILE OFcTnI DISTRIBUTION IN A REFERENCE POPULATION, HAS BEEN CONFIRMED THE DECISION THRESHOLDFOR [place] DIAGNOSIS. Performed By: #### Everardo PRAJAPATI CMADM ####[facility] Toyyhrslpf[address] [place] [address]Dr. Emelina Navarro URBANO 79 ng/mL Normal 16-96 [facility] Comment on above: Performed By: #### B CARRI PRAJAPATIDM ####[facility] Oedupmcsdo[address] [place] [address]Dr. Emelina Navarro CBC AUTO DIFFon 05-08-2022 BASO # 0.0 103/ul Normal 0.0-0.1 [facility] Comment on above: Performed By: #### C BC ####[facility] Wulzhunalz[address] [place] [address]Dr. Emeilna Navarro Basophils/100 WBC (Bld) 0.2 % Normal 0.2-2.0 [facility] Comment on above: Performed By: #### C BC ####[facility] C[address]lffns[address] [place], [place] [address]Dr. Emelina Navarro EO # 0.2 103/ul Normal 0.0-0.7 [facility] Comment on above: Performed By: #### C BC ####[facility] Yqjquzwpnu[address] [place], [place] [address]Dr. Emelina Navarro Eosinophils/100 WBC (Bld) 1.3 % Normal 0.9-7.0 [facility] Comment on above: Performed By: #### C BC ####[facility] [address]bnfkna[address] [place], [place] [address]Dr. Emelina Navarro Erythrocyte distribution width (RBC) [Ratio] 16.2 % Critically high 11.0-15.0 [facility] Comment on above: Performed By: #### C BC ####[facility] Plepiepatu[address] [place], [place] [id number]. Emelina Navarro Hematocrit (Bld) [Volume fraction] 43.8 % Normal 42.0-54.0 [facility] Comment on above: Performed By: #### C BC ####[facility] H[address]bjbbaj[address] [place], [place] [address]Dr. Emelina Navarro Hemoglobin (Bld) [Mass/Vol] 13.9 g/dL Critically low 14.0-18.0 [facility] Comment on above: Performed By: #### C BC ####[facility] Vfq[address]fsduv[address] [place] [id number]. Emelina Navarro IG # 0.17 10e3/ul Critically high 0.00-0.03 [facility] Comment on above: Performed By: #### C BC ####[facility] Bivuozeaus[address] [place] [id number]. Emelina Navarro IG % 1.0 % Critically high 0.0-0.5 [facility] Comment on above: Performed By: #### C BC ####[facility] Hztfmoiuej2772 [place] [address]Dr. Emelina Navarro LYMPH # 1.1 103/ul Critically low 1.2-3.8 [facility] Comment on above: Performed By: #### C BC ####[facility] Amdqwbyfuz10[address] [place] [address]Dr. Emelina Navarro Lymphocytes/100 WBC (Bld) 6.5 % Critically low 20.5-60.0 [facility] Comment on above: Performed By: #### C BC ####[facility] Ybkefxsagv09[address] [place] [address]Dr. Awildanitza Navarro MANUAL DIFF REQ NO Normal The [facility] Comment on above: Performed By: #### C BC ####[facility] Ngcicfhplr6563 [place] [address]Dr. Emelina Navarro MCH (RBC) [Entitic mass] 28.8 pg Normal 25.9-34.0 [facility] Comment on above: Performed By: #### C BC ####[facility] [address]xdrdfrw[address] [place], [place] [address]Dr. Emelina Navarro MCHC (RBC) [Mass/Vol] 31.7 g/dL Normal 29.9-35.2 [facility] Comment on above: Performed By: #### C BC ####[facility] Zkidgwrlbm032[address] [place] [address]Dr. Emelina Navarro MCV (RBC) [Entitic vol] 90.9 fL Normal 80.0-94.0 [facility] Comment on above: Performed By: #### C BC ####[facility] Mvdpyfuaks6486 [place] [id number]. Emelina Navarro MONO # 1.4 103/ul Critically high 0.3-0.8 The [facility] Comment on above: Performed By: #### C BC ####[facility] Hmzigqohsh9368 [place] [id number]. Emelina Navarro Monocytes/100 WBC (Bld) 8.5 % Normal 1.7-12.0 [facility] Comment on above: Performed By: #### C BC ####[facility] Ijstdajhes1269 [place] [id number]. Emelina Navarro NEUT # 13.9 103/ul Critically high 1.4-6.5 [facility] Comment on above: Performed By: #### C BC ####[facility] Hqyizrxyst4848 [place] [id number]. Emelina Navarro Neutrophils/100 WBC (Bld) 82.5 % Critically high 43.0-75.0 [facility] Comment on above: Performed By: #### C BC ####[facility] Tinxxssyrz0923 [place] [id number]. Emelina Navarro Platelet mean volume (Bld) [Entitic vol] 9.8 fL Normal 9.5-13.5 [facility] Comment on above: Performed By: #### C BC ####[facility] Ktxgjjahsc0733 [place] [id number]. Emelina Navarro PLT 214 103/ul Normal 150-450 [facility] Comment on above: Performed By: #### C BC ####[facility] Y[address]ukff[address] [place], [place] [address]Dr. Emelina Navarro RBC 4.82 106/ul Normal 4.70-6.10 [facility] Comment on above: Performed By: #### C BC ####[facility] Txmaknvgax1250 [place] [id number]. Emelina Navarro WBC 16.8 103/ul Critically high 4.0-11.0 [facility] Comment on above: Performed By: #### C BC ####[facility] Hsaswecimu2049 [place] [id number]. Emelina Navarro CRPon 05-08-2022 CRP 2.5 mg/dL Critically high <=1.0 The [facility] Comment on above: Performed By: #### C RP ####[facility] Zkzpnueabq3790 [place] [id number]. Emelina Navarro Covid-19 PCR (CVDTBH)on 04-20 SARS-CoV-2 (COVID-19) RNA RADHA+probe Ql (Unsp spec) Detected Critically abnormal NOT DETECTED [facility] Comment on above: Result Comment: This test is not yet approved or cleared by the [place] FDA. When there are no FDA-approved or cleared tests available, and other criteria are met, FDA can make tests available under an emergency access mechanism called an Emergency Use Authorization (EUA). The EUA for this test is supported by the [employer] of Health and Human Service's declaration that [...] be used). Performed By: #### C VDTBH ####[facility] Ehhvkxtfne4623 [place] [id number]. Emelina Navarro DIGOXINon 05-08-2022 DIG 0.9 ng/mL Normal 0.9-2.0 [facility] Comment on above: Performed By: #### D IG ####[facility] Stlyirbhal4570 [place] [id number]. Emelina Navarro LACTATE/LACTIC ACIDon 2021 Lactate [Moles/Vol] 1.6 mmol/L Normal 0.4-1.9 [facility] Comment on above: Performed By: #### L ACT ####[facility] Hpzyiqshsj8280 [place] [id number]. Emelina Navarro Lactate [Moles/Vol] 1.3 mmol/L Normal 0.4-1.9 The [facility] Comment on above: Performed By: #### L ACT ####[facility] Brawjttxsi[address] [place] [address]Dr. Awildanitza Ramon POINT OF CARE GLUCOSEon 04-20 Glucose [Mass/Vol] 244 mg/dL Critically high -106 [facility] Comment on above: Performed By: #### P OCGLUC ####[facility] Evpzicudbn1792 [place] [address]Dr. Emelina Navarro Glucose [Mass/Vol] 405 mg/dL Critically high 74-106 [facility] Comment on above: Performed By: #### P OCGLUC ####[facility] Zagbeosuft[address] [place], [place] [address]Dr. Awildanitza Ramon Glucose [Mass/Vol] 352 mg/dL Critically high 74-106 [facility] Comment on above: Performed By: #### P OCGLUC ####[facility] [address]feifvcqv99[address] [place], [place] [address]Dr. Emelina Navarro Glucose [Mass/Vol] 285 mg/dL Critically high 74-106 [facility] Comment on above: Performed By: #### P OCGLUC ####[facility] Yaplenyuol74[address] [place], [place] [address]Dr. Emelina Navarro PROF CHEM 8 (BAS METB)on Anion gap [Moles/Vol] 13.7 mmol/L Normal [facility] Comment on above: Performed By: #### B MP ####[facility] Miztzfqhrt7[address] [place], [place] [address]Dr. Emelina Navarro Calcium [Mass/Vol] 8.4 mg/dL Critically low 8.5-10.1 [facility] Comment on above: Performed By: #### B MP ####[facility] Dwbyyfscev06[address] [place], [place] [address]Dr. Emelina Navarro Chloride [Moles/Vol] 93 mmol/L Critically low 98-107 [facility] Comment on above: Performed By: #### B MP ####[facility] Aswjsoolnr[address] [place], [place] [address]Dr. Emelina Navarro CO2 [Moles/Vol] 26.4 mmol/L Normal 21.0-32.0 [facility] Comment on above: Performed By: #### B MP ####[facility] Kfesoneghv[address] [place], [place] [address]Dr. Emelina Navarro Creatinine [Mass/Vol] 2.23 mg/dL Critically high 0.70-1.30 [facility] Comment on above: Performed By: #### B MP ####[facility] Ugnaqsfrbp9[address] [place], [place] [address]Dr. Emelina Navarro EGFR-AF SURINAMESE 36 mL/min/1.73m2 Critically low >=60 [facility] Comment on above: Performed By: #### B MP ####[facility] Hqxfpxmbmp82[address] [place], [place] [address]Dr. Emelina Navarro EGFR-NON AF SURINAMESE 30 mL/min/1.73m2 Critically low >=60 [facility] Comment on above: Performed By: #### B MP ####[facility] Otcysytrvd6[address] [place], [place] [address]Dr. Emelina Navarro Glucose [Mass/Vol] 451 mg/dL Critically high 74-106 [facility] Comment on above: Performed By: #### B MP ####[facility] H[address]fkmynzd94[address] [place], [place] [address]Dr. Emelina Navarro Potassium [Moles/Vol] 5.1 mmol/L Normal 3.5-5.1 [facility] Comment on above: Performed By: #### B MP ####[facility] Zzgprgtboq247[address] [place], [place] [address]Dr. Emelina Navarro Sodium [Moles/Vol] 128 mmol/L Critically low 136-145 [facility] Comment on above: Performed By: #### B MP ####[facility] Slfxkmceci[address] [place], [place] [address]Dr. Emelina Navarro Urea nitrogen [Mass/Vol] 40.0 mg/dL Critically high 7.0-18.0 [facility] Comment on above: Performed By: #### B MP ####[facility] Zfgesgbhsw[address] [place], [place] [address]Dr. Emelina Navarro Urea nitrogen/Creatinine [Mass ratio] 17.9 mg/mg Normal [facility] Comment on above: Performed By: #### B VICTORINA ####[facility] Swfoxflgdc28[address] [place] [address]Dr. Emelina Navarro Anion gap [Moles/Vol] 13.7 mmol/L Normal [facility] Comment on above: Performed By: #### B VICTORINA, SHIVAM ####[facility] Jdwmxsyfjr485[address] [place] [address]Dr. Emelina Navarro Calcium [Mass/Vol] 8.5 mg/dL Normal 8.5-10.1 [facility] Comment on above: Performed By: #### B SHIVAM PRAJAPATI ####[facility] Znsggtmoct[address] [place], [place] [address]Dr. Emelina Navarro Chloride [Moles/Vol] 98 mmol/L Normal 98-107 [facility] Comment on above: Performed By: #### B SHIVAM PRAJAPATI ####[facility] Jsinzoguvk[address] [place], [place] [address]Dr. Emelina Navarro CO2 [Moles/Vol] 25.0 mmol/L Normal 21.0-32.0 [facility] Comment on above: Performed By: #### SHIVAM Mcgee MP ####[facility] [address]osvazpw[address] [place], [place] [address]Dr. Emelina Navarro Creatinine [Mass/Vol] 1.97 mg/dL Critically high 0.70-1.30 [facility] Comment on above: Performed By: #### SHIVAM Mcgee MP ####[facility] [address]yybrawfkt[address] [place] [address]Dr. Emelina Ramon EGFR-AF SURINAMESE 41 mL/min/1.73m2 Critically low >=60 [facility] Comment on above: Performed By: #### B SHIVAM PRAJAPATI ####[facility] Wexsljozom[address] [place], [place] [address]Dr. Emelina Navarro EGFR-NON AF SURINAMESE 34 mL/min/1.73m2 Critically low >=60 [facility] Comment on above: Performed By: #### B SHIVAM PRAJAPATI ####[facility] Qmwraxpskb77[address] [place] [address]Dr. Emelina Navarro Glucose [Mass/Vol] 239 mg/dL Critically high 74-106 [facility] Comment on above: Performed By: #### B VICTORINA, SHIVAM ####[facility] [address]zmcclktl[address] [place] [address]Dr. Emelina Navarro Potassium [Moles/Vol] 5.7 mmol/L Critically high 3.5-5.1 [facility] Comment on above: Performed By: #### B VICTORINA, SHIVAM ####[facility] [address]koirnx37[address] [place] [address]Dr. Emelina Navarro Sodium [Moles/Vol] 131 mmol/L Critically low 136-145 [facility] [place] [facility] Comment on above: Performed By: #### B VICTORINA, SHIVAM ####[facility] [address]sqtzycwzg[address] [place] [address]Dr. Emelina Navarro Urea nitrogen [Mass/Vol] 37.0 mg/dL Critically high 7.0-18.0 [facility] Comment on above: Performed By: #### B SHIVAM PRAJAPATI ####[facility] [address]rywzrln[address] [place] [address]Dr. Emelina Navarro Urea nitrogen/Creatinine [Mass ratio] 18.8 mg/mg Normal [facility] Comment on above: Performed By: #### B VICTORINA, SHIVAM ####[facility] Udguidnqrt[address] [place] [address]Dr. Emelina Navarro PROTIMEon 05-08-2022 INR Coag (PPP) [Relative time] 2.28 {INR} Normal [facility] Comment on above: Performed By: #### P T ####[facility] [address]nu[address] [place], [place] [address]Dr. Emelina Navarro INR GUIDELINES SEE BELOW Normal [facility] Comment on above: Result Comment: WENDY RED INR: 2.0 - 3.0 CONDITIONS NOT LISTED BELOW 2.5 - 3.5 FOR PROSTHETIC HEART VALVE REPLACEMENT 2.5 - 3.5 RECURRENT THROMBOSIS Performed By: #### P T ####[facility] Aezwvvaajt8[address] [place], [place] [address]DrWesley Navarro PT Coag (PPP) [Time] 23.3 s Critically high 9.0-11.6 [facility] Comment on above: Performed By: #### P T ####[facility] Hddznenkks[address] [place], [place] [address]DrWesley Navarro US FERNY DOP LEG LTon 05-08-20 US FERNY DOP LEG LT Normal [facility] XR CHEST 1 Von 05-08-2022 XR CHEST 1 V Normal [facility] CBC AUTO DIFFon 05-02-2022 BASO # 0.0 103/ul Normal 0.0-0.1 [facility] Comment on above: Performed By: #### C BC ####[facility] Djgvsbwzqk458[address] [place], [place] [address]DrWesley Navarro Basophils/100 WBC (Bld) 0.2 % Normal 0.2-2.0 [facility] Comment on above: Performed By: #### C BC ####[facility] Zjcdjyrkhw[address] [place], [place] [address]DrWesley Navarro EO # 0.0 103/ul Normal 0.0-0.7 [facility] Comment on above: Performed By: #### C BC ####[facility] Sijtcymkjy96[address] [place], [place] [address]DrWesley Navarro Eosinophils/100 WBC (Bld) 0.2 % Critically low 0.9-7.0 [facility] Comment on above: Performed By: #### C BC ####[facility] Qabvretbsk6839[address] [place], [place] [address]DrWesley Navarro Erythrocyte distribution width (RBC) [Ratio] 16.5 % Critically high 11.0-15.0 [facility] Comment on above: Performed By: #### C BC ####[facility] Lltqkrfiaq157[address] [place], [place] [address]DrWesley Navarro Hematocrit (Bld) [Volume fraction] 42.0 % Normal 42.0-54.0 [facility] Comment on above: Performed By: #### C BC ####[facility] Aobjvotowz37[address] [place], [place] [address]Dr. Emelina Ramon Hemoglobin (Bld) [Mass/Vol] 13.3 g/dL Critically low 14.0-18.0 [facility] Comment on above: Performed By: #### C BC ####[facility] Nxxvvalfej6083 [place] [address]Dr. Awildanitza Navarro IG # 0.14 10e3/ul Critically high 0.00-0.03 [facility] Comment on above: Performed By: #### C BC ####[facility] Xpihulwhls5106 [place] [address]Dr. Awildanitza Navarro IG % 1.1 % Critically high 0.0-0.5 The [facility] Comment on above: Performed By: #### C BC ####[facility] Jpgiadmjzj7659[address] [place], [place] [address]Dr. Emelina Navarro LYMPH # 1.3 103/ul Normal 1.2-3.8 [facility] Comment on above: Performed By: #### C BC ####[facility] Flzrrksynf754[address] [place], [place] [address]Dr. Emelina Navarro Lymphocytes/100 WBC (Bld) 9.8 % Critically low 20.5-60.0 [facility] Comment on above: Performed By: #### C BC ####[facility] Qjrtzqsmde06[address] [place] [address]DrWesley Awildanitza Navarro MANUAL DIFF REQ NO Normal [facility] Comment on above: Performed By: #### C BC ####[facility] Acscmltioe357[address] [place], [place] [address]DrWesley Emelina Ramon MCH (RBC) [Entitic mass] 28.9 pg Normal 25.9-34.0 [facility] Comment on above: Performed By: #### C BC ####[facility] Pnzplqymyy2699[address] [place], [place] [address]DrWesley Emelina Ramon MCHC (RBC) [Mass/Vol] 31.7 g/dL Normal 29.9-35.2 [facility] Comment on above: Performed By: #### C BC ####[facility] Ksroiukrxh[address] [place], [place] [address]Dr. Emelina Ramon MCV (RBC) [Entitic vol] 91.1 fL Normal 80.0-94.0 [facility] Comment on above: Performed By: #### C BC ####[facility] Dshinocrmz[address] [place] [address]Dr. Emelina Navarro MONO # 1.2 103/ul Critically high 0.3-0.8 The [facility] Comment on above: Performed By: #### C BC ####[facility] Vktkdmerxs56[address] [place] [address]Dr. Awildanitza Navarro Monocytes/100 WBC (Bld) 9.6 % Normal 1.7-12.0 [facility] Comment on above: Performed By: #### C BC ####[facility] Rvsgscfpdr184[address] [place], [place] [address]Dr. Emelina Navarro NEUT # 10.1 103/ul Critically high 1.4-6.5 [facility] Comment on above: Performed By: #### C BC ####[facility] Grxrvsrjmt8174[address] [place], [place] [address]Dr. Awildanitza Navarro Neutrophils/100 WBC (Bld) 79.1 % Critically high 43.0-75.0 [facility] Comment on above: Performed By: #### C BC ####[facility] Hjeoxrnjee4[address] [place] [address]Dr. Awildanitza Navarro Platelet mean volume (Bld) [Entitic vol] 10.0 fL Normal 9.5-13.5 [facility] Comment on above: Performed By: #### C BC ####[facility] Xmktcsteur[address] [place] [address]Dr. Emelina Ramon PLT 188 103/ul Normal 150-450 [facility] Comment on above: Performed By: #### C BC ####[facility] Xtfybjrcwc2494 [place] [address]DrWesley Navarro RBC 4.61 106/ul Critically low 4.70-6.10 The [facility] Comment on above: Performed By: #### C BC ####[facility] Iiymiomdhd7[address] [place], [place] [address]DrWesley Tarango Navarro WBC 12.8 103/ul Critically high 4.0-11.0 [facility] Comment on above: Performed By: #### C BC ####[facility] Stcoqiyipl[address] [place] [address]Dr. Emelina Navarro NM HEPATOBILIARY SCAN W EFon 05-02-2022 NM HEPATOBILIARY SCAN W EF Normal [facility] PROF 14(COMP METB)on 022 Albumin [Mass/Vol] 2.7 g/dL Critically low 3.4-5.0 Th [facility] Comment on above: Performed By: #### C MP ####[facility] Qwkwjsqoaf9[address] [place] [address]Dr. Emelina Ramon Albumin/Globulin [Mass ratio] 0.7 {ratio} Normal [facility] Comment on above: Performed By: #### C MP ####[facility] M[address]iihfvwe2[address] [place] [address]Dr. Emelina Ramon ALP [Catalytic activity/Vol] 65 U/L Normal 46-116 [facility] Comment on above: Performed By: #### C MP ####[facility] Xqwwdwjgtw0974 [place] [address]Dr. Emelina Ramon ALT [Catalytic activity/Vol] 406 U/L Critically high 16-63 [facility] Comment on above: Performed By: #### C MP ####[facility] Xerkbmvjod230[address] [place] [address]Dr. Emelina Navarro Anion gap [Moles/Vol] 8.1 mmol/L Normal [facility] Comment on above: Performed By: #### C MP ####[facility] Kwensqqmgu8[address] [place] [address]Dr. Awildanitza Navarro AST [Catalytic activity/Vol] 101 U/L Critically high 15-37 [facility] Comment on above: Performed By: #### C MP ####[facility] Nkbswyhdpy9503 [place] [address]Dr. Emelina Navarro Bilirubin [Mass/Vol] 0.6 mg/dL Normal 0.2-1.0 [facility] Comment on above: Performed By: #### C MP ####[facility] Rgcvrfolaa8579 [place] [address]Dr. Emelina Navarro Calcium [Mass/Vol] 7.7 mg/dL Critically low 8.5-10.1 [facility] Comment on above: Performed By: #### C MP ####[facility] Clfvhpmmxr0057 [place] [address]Dr. Emelina Navarro Chloride [Moles/Vol] 104 mmol/L Normal 98-107 [facility] Comment on above: Performed By: #### C MP ####[facility] Inlcrhagoa0231 [place] [address]Dr. Emelina Navarro CO2 [Moles/Vol] 30.9 mmol/L Normal 21.0-32.0 [facility] Comment on above: Performed By: #### C MP ####[facility] Gkioxwzudg119[address] [place], [place] [address]Dr. Emelina Navarro Creatinine [Mass/Vol] 1.54 mg/dL Critically high 0.70-1.30 [facility] Comment on above: Performed By: #### C MP ####[facility] Vvknktrbob[address] [place], [place] [address]Dr. Emelina Navarro EGFR-AF SURINAMESE 55 mL/min/1.73m2 Critically low >=60 [facility] Comment on above: Performed By: #### C MP ####[facility] Tvxybvmxnm5[address] [place], [place] [address]Dr. Emelina Navarro EGFR-NON AF SURINAMESE 45 mL/min/1.73m2 Critically low >=60 [facility] Comment on above: Performed By: #### C MP ####[facility] Dxrmkfkbgp9920[address] [place], [place] [address]Dr. Emelina Navarro Globulin (S) [Mass/Vol] 3.8 g/dL Normal [facility] Comment on above: Performed By: #### C MP ####[facility] Eqovzmytni0360[address] [place], [place] [address]Dr. Emelina Navarro Glucose [Mass/Vol] 177 mg/dL Critically high 74-106 [facility] Comment on above: Performed By: #### C MP ####[facility] Ssdqfpinwg4032 [place] [address]Dr. Emelina Navarro Potassium [Moles/Vol] 4.0 mmol/L Normal 3.5-5.1 [facility] Comment on above: Performed By: #### C MP ####[facility] Lbghqscpsb0888 [place] [address]Dr. Emelina Navarro Protein [Mass/Vol] 6.5 g/dL Normal 6.4-8.2 [facility] Comment on above: Performed By: #### C MP ####[facility] Xrmudznlwo9629 [place] [address]Dr. Emelina Navarro Sodium [Moles/Vol] 139 mmol/L Normal 136-145 [facility] Comment on above: Performed By: #### C MP ####[facility] Jxhccbgyjr785[address] [place], [place] [address]Dr. Emelina Navarro Urea nitrogen [Mass/Vol] 38.0 mg/dL Critically high 7.0-18.0 [facility] Comment on above: Performed By: #### C MP ####[facility] Sbdskrnvlp6165[address] [place], [place] [address]Dr. Emelina Navarro Urea nitrogen/Creatinine [Mass ratio] 24.7 mg/mg Normal [facility] Comment on above: Performed By: #### C MP ####[facility] [address]qzsikxukw3[address] [place], [place] [address]Dr. Emelina Navarro PROTIMEon 05-02-2022 INR Coag (PPP) [Relative time] 2.57 {INR} Normal [facility] Comment on above: Performed By: #### P T ####[facility] Ntyataylgl9[address] [place], [place] [address]Dr. Emelina Navarro INR GUIDELINES SEE BELOW Normal [facility] Comment on above: Result Comment: WENDY RED INR: 2.0 - 3.0 CONDITIONS NOT LISTED BELOW 2.5 - 3.5 FOR PROSTHETIC HEART VALVE REPLACEMENT 2.5 - 3.5 RECURRENT THROMBOSIS Performed By: #### P T ####[facility] Sgthjmdjox687[address] [place], [place] [address]Dr. Emelina Ramon PT Coag (PPP) [Time] 26.1 s Critically high 9.0-11.6 [facility] Comment on above: Performed By: #### P T ####[facility] Vcrvlvwgpg2184 [place] [address]Dr. Emelina Navarro CBC AUTO DIFFon 05-01-2022 BASO # 0.0 103/ul Normal 0.0-0.1 [facility] Comment on above: Performed By: #### C BC ####[facility] Uowhbakbak8[address] [place] [address]Dr. Emelina Navarro Basophils/100 WBC (Bld) 0.1 % Critically low 0.2-2.0 [facility] Comment on above: Performed By: #### C BC ####[facility] Ofgmtcxdue2917[address] [place], [place] [address]Dr. Awildanitza Navarro EO # 0.0 103/ul Normal 0.0-0.7 [facility] Comment on above: Performed By: #### C BC ####[facility] Rjmtndxtsw7[address] [place], [place] [address]Dr. Emelina Navarro Eosinophils/100 WBC (Bld) 0.0 % Critically low 0.9-7.0 [facility] Comment on above: Performed By: #### C BC ####[facility] Tphffoxxwr[address] [place], [place] [address]Dr. Emelina Navarro Erythrocyte distribution width (RBC) [Ratio] 16.5 % Critically high 11.0-15.0 [facility] Comment on above: Performed By: #### C BC ####[facility] Varuzziell01[address] [place], [place] [address]Dr. Emelina Navarro Hematocrit (Bld) [Volume fraction] 41.5 % Critically low 42.0-54.0 [facility] Comment on above: Performed By: #### C BC ####[facility] Kfurdluoro6[address] [place], [place] [address]Dr. Emelina Navarro Hemoglobin (Bld) [Mass/Vol] 13.5 g/dL Critically low 14.0-18.0 [facility] Comment on above: Performed By: #### C BC ####[facility] [address]cbqhseb17[address] [place] [id number]. Emelina Navarro IG # 0.12 10e3/ul Critically high 0.00-0.03 [facility] Comment on above: Performed By: #### C BC ####[facility] Wjmrbzaonz1381 [place] [id number]. Emelina Navarro IG % 0.7 % Critically high 0.0-0.5 [facility] Comment on above: Performed By: #### C BC ####[facility] Uooyjhyotk33[address] [place] [address]Dr. Emelina Ramon LYMPH # 0.8 103/ul Critically low 1.2-3.8 [facility] Comment on above: Performed By: #### C BC ####[facility] Ivpjkefhrq2715 [place] [address]Dr. Emelina Navarro Lymphocytes/100 WBC (Bld) 4.7 % Critically low 20.5-60.0 [facility] Comment on above: Performed By: #### C BC ####[facility] Zviszooaqi86[address] [place] [address]Dr. Emelina Navarro MANUAL DIFF REQ NO Normal [facility] Comment on above: Performed By: #### C BC ####[facility] Qrwjyurogk8029 [place] [address]Dr. Emelina Navarro MCH (RBC) [Entitic mass] 28.9 pg Normal 25.9-34.0 [facility] Comment on above: Performed By: #### C BC ####[facility] Rkuafvuqrl[address] [place], [place] [address]Dr. Emelina Navarro MCHC (RBC) [Mass/Vol] 32.5 g/dL Normal 29.9-35.2 [facility] Comment on above: Performed By: #### C BC ####[facility] Ulljzwmhdx89[address] [place] [address]Dr. Emelina Navarro MCV (RBC) [Entitic vol] 88.9 fL Normal 80.0-94.0 [facility] Comment on above: Performed By: #### C BC ####[facility] Lxhpuvdkut2446 [place] [id number]. Emelina Navarro MONO # 1.0 103/ul Critically high 0.3-0.8 [facility] Comment on above: Performed By: #### C BC ####[facility] Xyivohpkbc8776 [place] [id number]. Emelina Navarro Monocytes/100 WBC (Bld) 6.5 % Normal 1.7-12.0 [facility] Comment on above: Performed By: #### C BC ####[facility] Ufmvbhahdz5411 [place] [id number]. Emelina Navarro NEUT # 14.1 103/ul Critically high 1.4-6.5 [facility] Comment on above: Performed By: #### C BC ####[facility] Qlwexuejjw7943 [place] [address]Dr. Emelina Navarro Neutrophils/100 WBC (Bld) 88.0 % Critically high 43.0-75.0 [facility] Comment on above: Performed By: #### C BC ####[facility] Nweicqbbzi8977 [place] [id number]. Emelina Navarro Platelet mean volume (Bld) [Entitic vol] 9.9 fL Normal 9.5-13.5 [facility] Comment on above: Performed By: #### C BC ####[facility] Pirngxmxqh6615 [place] [id number]. Emelina Navarro PLT 185 103/ul Normal 150-450 [facility] Comment on above: Performed By: #### C BC ####[facility] Gtxvqjrnpl9308 [place] [id number]. Emelina Navarro RBC 4.67 106/ul Critically low 4.70-6.10 [facility] Comment on above: Performed By: #### C BC ####[facility] Kyrxplmnfu0801 [place] [id number]. Emelina Navarro WBC 16.1 103/ul Critically high 4.0-11.0 [facility] Comment on above: Performed By: #### C BC ####[facility] Ksroodubtj4569 [place] [id number]. Emelina Navarro LIVER PROFILEon 05-01-2022 Albumin/Globulin [Mass ratio] 0.7 {ratio} Normal [facility] Comment on above: Performed By: #### L IVER ####[facility] Vkucdegwjp0274 [place] [id number]. Emelina Navarro ALP [Catalytic activity/Vol] 71 U/L Normal 46-116 [facility] Comment on above: Performed By: #### L IVER ####[facility] Vljuvxgmha2676 [place] [address]Dr. Emelina Navarro ALT [Catalytic activity/Vol] 558 U/L Critically high 16-63 [facility] Comment on above: Performed By: #### L IVER ####[facility] Lalierhbex083[address] [place], [place] [address]Dr. Awildanitza Ramon AST [Catalytic activity/Vol] 220 U/L Critically high 15-37 [facility] Comment on above: Performed By: #### L IVER ####[facility] Simiqurnxm3912 [place] [address]Dr. Emelina Navarro BILI, CONJUGATED 0.2 mg/dL Normal 0.0-0.2 [facility] Comment on above: Performed By: #### L IVER ####[facility] Tthzfabagr5[address] [place], [place] [address]Dr. Emelina Navarro Bilirubin [Mass/Vol] 0.5 mg/dL Normal 0.2-1.0 [facility] Comment on above: Performed By: #### L IVER ####[facility] Jnbxyrwkdw5176 [place] [address]Dr. Awildanitza Navarro Globulin (S) [Mass/Vol] 3.9 g/dL Normal [facility] Comment on above: Performed By: #### L IVER ####[facility] Wlrkkazfxk5[address] [place], [place] [address]Dr. Emelina Navarro Protein [Mass/Vol] 6.8 g/dL Normal 6.4-8.2 [facility] Comment on above: Performed By: #### L IVER ####[facility] Typrcwwykk1562 [place] [address]Dr. Emelina Navarro POINT OF CARE GLUCOSEon 04-19 Glucose [Mass/Vol] 205 mg/dL Critically high 74-106 T [facility] Comment on above: Performed By: #### P OCGLUC ####[facility] Kczedlkloo[address] [place], [place] [address]Dr. Emelina Navarro PROF 14(COMP METB)on 022 Albumin [Mass/Vol] 2.9 g/dL Critically low 3.4-5.0 [facility] Comment on above: Performed By: #### C MP ####[facility] Mhshoeqfvf21[address] [place], [place] [address]Dr. Emelina Navarro Performed By: #### L IVER ####[facility] Moeljutrvf6814[address] [place], [place] [address]Dr. Emelina Navarro Albumin/Globulin [Mass ratio] 0.8 {ratio} Normal [facility] Comment on above: Performed By: #### C MP ####[facility] Kznyfpiazy75[address] [place], [place] [address]Dr. Emelina Navarro ALP [Catalytic activity/Vol] 70 U/L Normal 46-116 [facility] Comment on above: Performed By: #### C MP ####[facility] Deqrxkpjfh3170[address] [place], [place] [address]Dr. Emelina Navarro ALT [Catalytic activity/Vol] 552 U/L Critically high 16-63 [facility] Comment on above: Performed By: #### C MP ####[facility] Zhttuhilzo9[address] [place], [place] [address]Dr. Emelina Navarro Anion gap [Moles/Vol] 14.2 mmol/L Normal [facility] Comment on above: Performed By: #### C MP ####[facility] Znxbvnjvng0[address] [place], [place] [address]Dr. Emelina Navarro AST [Catalytic activity/Vol] 214 U/L Critically high 15-37 [facility] Comment on above: Performed By: #### C MP ####[facility] Bsbrhyvxrf3419 [place], [place] [address]Il. Emelina Navarro Bilirubin [Mass/Vol] 0.6 mg/dL Normal 0.2-1.0 [facility] Comment on above: Performed By: #### C MP ####[facility] Xsrpqdvdmi1149 [place], [place] [address]Xt. Emelina Navarro Calcium [Mass/Vol] 7.9 mg/dL Critically low 8.5-10.1 [facility] Comment on above: Performed By: #### C MP ####[facility] Cbgaxurylw9288 [place] [id number]. Emelina Navarro Chloride [Moles/Vol] 103 mmol/L Normal 98-107 [facility] Comment on above: Performed By: #### C MP ####[facility] Uoartpkbzn[address] [place], [place] [address]Dr. Emelina Navarro CO2 [Moles/Vol] 25.0 mmol/L Normal 21.0-32.0 [facility] Comment on above: Performed By: #### C MP ####[facility] Ekoqiyoevy0455 [place] [id number]. Emelina Navarro Creatinine [Mass/Vol] 1.58 mg/dL Critically high 0.70-1.30 [facility] Comment on above: Performed By: #### C MP ####[facility] Mtwssozits1884 [place] [phone]. Emelina Navarro EGFR-AF SURINAMESE 53 mL/min/1.73m2 Critically low >=60 [facility] Comment on above: Performed By: #### C MP ####[facility] Vmntzsvuwu1235 [place] [id number]. Emelina Navarro EGFR-NON AF SURINAMESE 44 mL/min/1.73m2 Critically low >=60 [facility] Comment on above: Performed By: #### C MP ####[facility] Mvgguowhkb[address] [place], [place] [address]Dr. Emelina Navarro Globulin (S) [Mass/Vol] 3.8 g/dL Normal [facility] Comment on above: Performed By: #### C MP ####[facility] Pdlrhvbrrj6457 [place] [id number]. Emelina Navarro Glucose [Mass/Vol] 267 mg/dL Critically high 74-106 [facility] Comment on above: Performed By: #### C MP ####[facility] Rqwakhpqbv0616 [place] [id number]. Emelina Navarro Potassium [Moles/Vol] 3.2 mmol/L Critically low 3.5-5.1 [facility] Comment on above: Performed By: #### C MP ####[facility] Zzhdtblzfz3362 [place] [id number]. Emelina Navarro Protein [Mass/Vol] 6.7 g/dL Normal 6.4-8.2 [facility] Comment on above: Performed By: #### C MP ####[facility] Nozigilqzd5597 [place] [address]Dr. Emelina Navarro Sodium [Moles/Vol] 139 mmol/L Normal 136-145 [facility] Comment on above: Performed By: #### C MP ####[facility] Aogvurkklg7147 [place] [address]Dr. Emelina Navarro Urea nitrogen [Mass/Vol] 43.0 mg/dL Critically high 7.0-18.0 [facility] Comment on above: Performed By: #### C MP ####[facility] Amgatiputl[address] [place] [address]Dr. Emelina Navarro Urea nitrogen/Creatinine [Mass ratio] 27.2 mg/mg Normal [facility] Comment on above: Performed By: #### C MP ####[facility] Tsccyzppro4483 [place] [id number]. Emelina Navarro PROTIMEon 05-01-2022 INR Coag (PPP) [Relative time] 2.57 {INR} Normal [facility] Comment on above: Performed By: #### P T ####[facility] [address]mrqmy[address] [place] [address]Dr. Emelina Navarro INR GUIDELINES SEE BELOW Normal [facility] Comment on above: Result Comment: WENDY RED INR: 2.0 - 3.0 CONDITIONS NOT LISTED BELOW 2.5 - 3.5 FOR PROSTHETIC HEART VALVE REPLACEMENT 2.5 - 3.5 RECURRENT THROMBOSIS Performed By: #### P T ####[facility] Zxcxzywxyi37[address] [place] [address]Dr. Emelina Navarro PT Coag (PPP) [Time] 26.1 s Critically high 9.0-11.6 [facility] Comment on above: Performed By: #### P T ####[facility] Iioppvudee[address] [place], [place] [address]Dr. Emelina Navarro CBC AUTO DIFFon 04-30-2022 BASO # 0.0 103/ul Normal 0.0-0.1 [facility] Comment on above: Performed By: #### C BC ####[facility] Cpahuqskbo[address] [place], [place] [address]Dr. Emelina Navarro Basophils/100 WBC (Bld) 0.1 % Critically low 0.2-2.0 [facility] Comment on above: Performed By: #### C BC ####[facility] Blafzfqtcw17[address] [place], [place] [address]Dr. Emelina Navarro EO # 0.0 103/ul Normal 0.0-0.7 [facility] Comment on above: Performed By: #### C BC ####[facility] Wbayxgapsv60[address] [place], [place] [address]Dr. Emelina Navarro Eosinophils/100 WBC (Bld) 0.0 % Critically low 0.9-7.0 [facility] Comment on above: Performed By: #### C BC ####[facility] Mvknefqrfl5[address] [place], [place] [address]Dr. Emelina Navarro Erythrocyte distribution width (RBC) [Ratio] 16.4 % Critically high 11.0-15.0 [facility] Comment on above: Performed By: #### C BC ####[facility] Tgpzxtldyj[address] [place], [place] [address]Dr. Emelina Navarro Hematocrit (Bld) [Volume fraction] 40.9 % Critically low 42.0-54.0 [facility] Comment on above: Performed By: #### C BC ####[facility] Lnbsyqadud[address] [place] [id number]. Emelina Navarro Hemoglobin (Bld) [Mass/Vol] 13.3 g/dL Critically low 14.0-18.0 [facility] Comment on above: Performed By: #### C BC ####[facility] Kmtpyhdduf3[address] [place] [id number]. Emelina Navarro IG # 0.11 10e3/ul Critically high 0.00-0.03 [facility] Comment on above: Performed By: #### C BC ####[facility] Vksthqomki7103 [place] [id number]. Emelina Navarro IG % 0.5 % Normal 0.0-0.5 [facility] Comment on above: Performed By: #### C BC ####[facility] Qfjllawkuu3130 [place] [address]Dr. Emelina Navarro LYMPH # 0.8 103/ul Critically low 1.2-3.8 [facility] Comment on above: Performed By: #### C BC ####[facility] Ywnoscuhuv1778 [place] [phone]. Emelina Navarro Lymphocytes/100 WBC (Bld) 3.9 % Critically low 20.5-60.0 [facility] Comment on above: Performed By: #### C BC ####[facility] Sbskyvlbto3358 [place] [phone]. Emelina Navarro MANUAL DIFF REQ NO Normal [facility] Comment on above: Performed By: #### C BC ####[facility] Aznjpdrmak4132 [place] [phone]. Emelina Navarro MCH (RBC) [Entitic mass] 29.0 pg Normal 25.9-34.0 [facility] Comment on above: Performed By: #### C BC ####[facility] Eojrhxmykg9077 [place] [phone]. Emelina Navarro MCHC (RBC) [Mass/Vol] 32.5 g/dL Normal 29.9-35.2 [facility] Comment on above: Performed By: #### C BC ####[facility] Rthddimoly5041 [place] [phone]. Emelina Navarro MCV (RBC) [Entitic vol] 89.1 fL Normal 80.0-94.0 [facility] Comment on above: Performed By: #### C BC ####[facility] Duxlnndtwa4609 [place] [phone]. Emelina Navarro MONO # 0.9 103/ul Critically high 0.3-0.8 [facility] Comment on above: Performed By: #### C BC ####[facility] Fykjgxyniy9289 [place] [phone]. Emelina Navarro Monocytes/100 WBC (Bld) 4.2 % Normal 1.7-12.0 [facility] Comment on above: Performed By: #### C BC ####[facility] Eemljeuqho8765 [place] [phone]. Emelina Navarro NEUT # 18.5 103/ul Critically high 1.4-6.5 [facility] Comment on above: Performed By: #### C BC ####[facility] Juqheqhmon[address] [place], [place] [id number]. Emelina Navarro Neutrophils/100 WBC (Bld) 91.3 % Critically high 43.0-75.0 [facility] Comment on above: Performed By: #### C BC ####[facility] Pgmyzocpvr[address] [place], [place] [id number]. Emelina Navarro Platelet mean volume (Bld) [Entitic vol] 10.9 fL Normal 9.5-13.5 [facility] Comment on above: Performed By: #### C BC ####[facility] Cdzagjjrly3767 [place] [phone]. Emelina Navarro PLT 162 103/ul Normal 150-450 [facility] Comment on above: Performed By: #### C BC ####[facility] Rhhgsgvfhp804[address] [place], [place] [id number]. Emelina Navarro RBC 4.59 106/ul Critically low 4.70-6.10 [facility] Comment on above: Performed By: #### C BC ####[facility] Cwttsjzfph0544 [place] [address]Dr. Emelina Navarro WBC 20.3 103/ul Critically high 4.0-11.0 [facility] Comment on above: Performed By: #### C BC ####[facility] Jbojhazopw1524[address] [place], [place] [address]Dr. Emelina Navarro PROF 14(COMP METB)on 022 Albumin [Mass/Vol] 2.8 g/dL Critically low 3.4-5.0 [facility] Comment on above: Performed By: #### C MP ####[facility] Brqbbntdza2748[address] [place], [place] [address]Dr. Emelina Navarro Albumin/Globulin [Mass ratio] 0.7 {ratio} Normal [facility] Comment on above: Performed By: #### C MP ####[facility] Hnidkcmgik5901[address] [place], [place] [address]Dr. Emelina Navarro ALP [Catalytic activity/Vol] 65 U/L Normal 46-116 [facility] Comment on above: Performed By: #### C MP ####[facility] Bnqznffbwb1875[address] [place], [place] [address]Dr. Emelina Navarro ALT [Catalytic activity/Vol] 467 U/L Critically high 16-63 [facility] Comment on above: Performed By: #### C MP ####[facility] Gegftaxwhm4395[address] [place], [place] [address]Dr. Emelina Navarro Anion gap [Moles/Vol] 15.3 mmol/L Normal [facility] Comment on above: Performed By: #### C MP ####[facility] Cfpvwzhopa355[address] [place], [place] [address]Dr. Emelina Navarro AST [Catalytic activity/Vol] 239 U/L Critically high 15-37 [facility] Comment on above: Performed By: #### C MP ####[facility] Zluapjfilr9590[address] [place], [place] [address]Dr. Emelina Navarro Bilirubin [Mass/Vol] 0.7 mg/dL Normal 0.2-1.0 [facility] Comment on above: Performed By: #### C MP ####[facility] Ekagbrwjlt3700 [place] [phone]. Emelina Navarro Calcium [Mass/Vol] 7.9 mg/dL Critically low 8.5-10.1 [facility] Comment on above: Performed By: #### C MP ####[facility] Fayasklyff7032 [place], [place] [address]Nh. Emelina Navarro Chloride [Moles/Vol] 106 mmol/L Normal 98-107 [facility] Comment on above: Performed By: #### C MP ####[facility] Nbdvrtnbym2773 [place] [phone]. Emelina Navarro CO2 [Moles/Vol] 23.3 mmol/L Normal 21.0-32.0 [facility] Comment on above: Performed By: #### C MP ####[facility] Lungelwxjs079[address] [place], [place] [id number]. Emelina Navarro Creatinine [Mass/Vol] 1.71 mg/dL Critically high 0.70-1.30 [facility] Comment on above: Performed By: #### C MP ####[facility] Enrfazeslt6084 [place] [phone]. Emelina Navarro EGFR-AF SURINAMESE 49 mL/min/1.73m2 Critically low >=60 [facility] Comment on above: Performed By: #### C MP ####[facility] Zqpfofscyy0[address] [place], [place] [address]Dr. Emelina Ramon EGFR-NON AF SURINAMESE 40 mL/min/1.73m2 Critically low >=60 [facility] Comment on above: Performed By: #### C MP ####[facility] Hvpgbueubo4217 [place] [phone]. Emelina Navarro Globulin (S) [Mass/Vol] 3.9 g/dL Normal [facility] Comment on above: Performed By: #### C MP ####[facility] Htvjuiuzvs1660 [place] [phone]. Emelina Ramon Glucose [Mass/Vol] 233 mg/dL Critically high 74-106 [facility] Comment on above: Performed By: #### C MP ####[facility] Rbtstfpspd0442 [place] [phone]. Emelina Navarro Potassium [Moles/Vol] 3.6 mmol/L Normal 3.5-5.1 [facility] Comment on above: Performed By: #### C MP ####[facility] Duaflmqbyu0793 [place] [phone]. Emelina Ramon Protein [Mass/Vol] 6.7 g/dL Normal 6.4-8.2 [facility] Comment on above: Performed By: #### C MP ####[facility] Giazskkjjd2275 [place] [address]Dr. Emelina Ramon Sodium [Moles/Vol] 141 mmol/L Normal 136-145 [facility] Comment on above: Performed By: #### C MP ####[facility] Hbladzdsdm027[address] [place], [place] [address]Dr. Awildanitza Navarro Urea nitrogen [Mass/Vol] 46.0 mg/dL Critically high 7.0-18.0 [facility] Comment on above: Performed By: #### C MP ####[facility] Mzniuvplcn11[address] [place], [place] [address]Dr. Awildanitza Navarro Urea nitrogen/Creatinine [Mass ratio] 26.9 mg/mg Normal [facility] Comment on above: Performed By: #### C MP ####[facility] Jkwwsvppqq5732[address] [place], [place] [address]Dr. Emelina Navarro XR CHEST 2 Von 04-30-2022 XR CHEST 2 V Normal [facility] CBC AUTO DIFFon 04-29-2022 BASO # 0.0 103/ul Normal 0.0-0.1 [facility] Comment on above: Performed By: #### C BC ####[facility] Uexghksmga9075[address] [place], [place] [address]Dr. Emelina Navarro Basophils/100 WBC (Bld) 0.1 % Critically low 0.2-2.0 [facility] Comment on above: Performed By: #### C BC ####[facility] Acnmjgzsyq729[address] [place], [place] [address]Dr. Emelina Navarro EO # 0.0 103/ul Normal 0.0-0.7 [facility] Comment on above: Performed By: #### C BC ####[facility] Obrsirbydx[address] [place] [address]Dr. Emelina Navarro Eosinophils/100 WBC (Bld) 0.0 % Critically low 0.9-7.0 [facility] Comment on above: Performed By: #### C BC ####[facility] Akypotneyc4447[address] [place], [place] [address]Dr. Emelina Navarro Erythrocyte distribution width (RBC) [Ratio] 16.2 % Critically high 11.0-15.0 [facility] Comment on above: Performed By: #### C BC ####[facility] Zyzcmwnvvw4795[address] [place], [place] [address]Dr. Emelina Navarro Hematocrit (Bld) [Volume fraction] 40.6 % Critically low 42.0-54.0 [facility] Comment on above: Performed By: #### C BC ####[facility] Ksxkszwitx386[address] [place], [place] [address]Dr. Emelina Navarro Hemoglobin (Bld) [Mass/Vol] 13.2 g/dL Critically low 14.0-18.0 [facility] Comment on above: Performed By: #### C BC ####[facility] Vulgkfpotq1112[address] [place], [place] [address]Dr. Emelina Navarro IG # 0.11 10e3/ul Critically high 0.00-0.03 [facility] Comment on above: Performed By: #### C BC ####[facility] Hgigkhcmub450[address] [place], [place] [address]Dr. Emelina Navarro IG % 0.6 % Critically high 0.0-0.5 [facility] Comment on above: Performed By: #### C BC ####[facility] Eqqohjzpyk60[address] [place], [place] [address]DrWesley Navarro LYMPH # 1.1 103/ul Critically low 1.2-3.8 [facility] Comment on above: Performed By: #### C BC ####[facility] Jauqdetuji0708[address] [place], [place] [address]DrWesley Navarro Lymphocytes/100 WBC (Bld) 5.6 % Critically low 20.5-60.0 [facility] Comment on above: Performed By: #### C BC ####[facility] Vziztbpkdj8569 [place] [address]DrWesley Navarro MANUAL DIFF REQ NO Normal [facility] Comment on above: Performed By: #### C BC ####[facility] Qmngnqrjzw2067 [place] [address]DrWesley Navarro MCH (RBC) [Entitic mass] 29.1 pg Normal 25.9-34.0 [facility] Comment on above: Performed By: #### C BC ####[facility] Dnaeysslor3135[address] [place], [place] [address]DrWesley Navarro MCHC (RBC) [Mass/Vol] 32.5 g/dL Normal 29.9-35.2 [facility] Comment on above: Performed By: #### C BC ####[facility] Fkrixwicng211[address] [place], [place] [address]DrWesley Navarro MCV (RBC) [Entitic vol] 89.4 fL Normal 80.0-94.0 [facility] Comment on above: Performed By: #### C BC ####[facility] Ygbiwnrhyd4156[address] [place], [place] [address]DrWesley Navarro MONO # 0.6 103/ul Normal 0.3-0.8 [facility] Comment on above: Performed By: #### C BC ####[facility] Ntbactzbbd5305[address] [place], [place] [address]DrWesley Navarro Monocytes/100 WBC (Bld) 3.2 % Normal 1.7-12.0 [facility] Comment on above: Performed By: #### C BC ####[facility] Rlarymxfol124[address] [place], [place] [address]DrWesley Navarro NEUT # 17.4 103/ul Critically high 1.4-6.5 [facility] Comment on above: Performed By: #### C BC ####[facility] Hfowzlbxsw3758[address] [place], [place] [address]DrWesley Navarro Neutrophils/100 WBC (Bld) 90.5 % Critically high 43.0-75.0 [facility] Comment on above: Performed By: #### C BC ####[facility] Fabsxubhxp3512 [place] [address]Dr. Emelina Navarro Platelet mean volume (Bld) [Entitic vol] 10.3 fL Normal 9.5-13.5 [facility] Comment on above: Performed By: #### C BC ####[facility] Evcdjirxkg7097 [place] [id number]. Emelina Navarro PLT 175 103/ul Normal 150-450 [facility] Comment on above: Performed By: #### C BC ####[facility] Bansmunbje2212 [place] [address]Dr. Emelina Navarro RBC 4.54 106/ul Critically low 4.70-6.10 [facility] Comment on above: Performed By: #### C BC ####[facility] Vkwoqevtrb0973 [place] [id number]. Emelina Navarro WBC 19.2 103/ul Critically high 4.0-11.0 [facility] Comment on above: Performed By: #### C BC ####[facility] Ubzvcjgpur4537 [place] [address]Dr. Emelina Navarro [facility] SARS-CoV-2 (COVID-19) RNA RADHA+probe Ql (Unsp spec) Not detected Normal NOT DETECTED [facility] Comment on above: Result Comment: When diagnostic [...] for this test is supported by the [employer] of [employer] and Human Service's declaration that [...] be used). Performed By: #### C VDTB ####[facility] Wkxfgipack5804 [place] [address]Dr. Emelina Navarro LIPASEon 04-29-2022 Lipase [Catalytic activity/Vol] 74.0 U/L Normal 73.0-393.0 [facility] Comment on above: Performed By: #### L IPA ####[facility] Flckgdyhjg64[address] [place], [place] [address]Dr. Emelina Navarro PROF 14(COMP METB)on 022 Albumin [Mass/Vol] 2.8 g/dL Critically low 3.4-5.0 [facility] Comment on above: Performed By: #### C MP ####[facility] Jtzkytnyuo[address] [place], [place] [address]Dr. Emelina Navarro Albumin/Globulin [Mass ratio] 0.7 {ratio} Normal [facility] Comment on above: Performed By: #### C MP ####[facility] Ausmkacofl806[address] [place], [place] [address]Dr. Emelina Navarro ALP [Catalytic activity/Vol] 70 U/L Normal 46-116 [facility] Comment on above: Performed By: #### C MP ####[facility] Txzkloxhdq9757[address] [place], [place] [address]Dr. Emelina Navarro ALT [Catalytic activity/Vol] 456 U/L Critically high 16-63 [facility] Comment on above: Performed By: #### C MP ####[facility] Sjxpdxgkxh3447[address] [place], [place] [address]Dr. Emelina Navarro Anion gap [Moles/Vol] 14.7 mmol/L Normal [facility] Comment on above: Performed By: #### C MP ####[facility] Ohkfxwtayq6188[address] [place], [place] [address]Dr. Emelina Navarro AST [Catalytic activity/Vol] 388 U/L Critically high 15-37 [facility] Comment on above: Performed By: #### C MP ####[facility] Gtqeiphrdt9876 [place] [id number]. Eemlina Navarro Bilirubin [Mass/Vol] 1.2 mg/dL Critically high 0.2-1.0 [facility] Comment on above: Performed By: #### C MP ####[facility] Ikuialjeew3187 [place] [id number]. Emelina Navarro Calcium [Mass/Vol] 7.8 mg/dL Critically low 8.5-10.1 [facility] Comment on above: Performed By: #### C MP ####[facility] Jkvsnqobhp7498 [place] [address]Dr. Emelina Ramon Chloride [Moles/Vol] 103 mmol/L Normal 98-107 [facility] Comment on above: Performed By: #### C MP ####[facility] Mjwudlxxrc42[address] [place], [place] [address]Dr. Emelina Ramon CO2 [Moles/Vol] 20.8 mmol/L Critically low 21.0-32.0 [facility] Comment on above: Performed By: #### C MP ####[facility] Lppbtetnvm1549[address] [place], [place] [address]Dr. Emelina Navarro Creatinine [Mass/Vol] 1.79 mg/dL Critically high 0.70-1.30 [facility] Comment on above: Performed By: #### C MP ####[facility] Adoufnnczo90[address] [place] [address]Dr. Emelina Ramon EGFR-AF SURINAMESE 46 mL/min/1.73m2 Critically low >=60 [facility] Comment on above: Performed By: #### C MP ####[facility] Pztxwzmqny0178 [place] [id number]. Emelina Ramon EGFR-NON AF SURINAMESE 38 mL/min/1.73m2 Critically low >=60 [facility] Comment on above: Performed By: #### C MP ####[facility] Sspjhgvgok1664 [place] [id number]. Emelina Ramon Globulin (S) [Mass/Vol] 3.9 g/dL Normal [facility] Comment on above: Performed By: #### C MP ####[facility] Qcxftdrxhk4824 [place] [address]Dr. Emelina Navarro Glucose [Mass/Vol] 313 mg/dL Critically high 74-106 [facility] Comment on above: Performed By: #### C MP ####[facility] Ecxxkcqzmh7461 [place] [id number]. Emelina Ramon Potassium [Moles/Vol] 3.5 mmol/L Normal 3.5-5.1 [facility] Comment on above: Performed By: #### C MP ####[facility] Hvowqrrxox2556 [place] [address]Dr. Emelina Navarro Protein [Mass/Vol] 6.7 g/dL Normal 6.4-8.2 [facility] Comment on above: Performed By: #### C MP ####[facility] Nkkowbxfxy382[address] [place], [place] [address]Dr. Emelina Ramon Sodium [Moles/Vol] 135 mmol/L Critically low 136-145 [facility] Comment on above: Performed By: #### C MP ####[facility] Mcswlczypk9059[address] [place], [place] [address]Dr. Emelina Ramon Urea nitrogen [Mass/Vol] 41.0 mg/dL Critically high 7.0-18.0 [facility] Comment on above: Performed By: #### C MP ####[facility] Tpwiushjvc2285[address] [place], [place] [address]Dr. Awildanitza Ramon Urea nitrogen/Creatinine [Mass ratio] 22.9 mg/mg Normal [facility] Comment on above: Performed By: #### C MP ####[facility] Xwhvhnlifj917[address] [place], [place] [address]Dr. Emelina Navarro US SINGLE QUAD RT UPPERon US SINGLE QUAD RT UPPER Normal [facility] BLOOD GASES BTYon 04-28-2022 02 MODE NASAL CANNULA Normal [facility] Comment on above: Result Comment: rese rvoir cannula Performed By: #### A BG ####[facility] Kaqswrksgx7269 [place] [address]Dr. Emelina Navarro ALLENS TEST Positive Normal [facility] Comment on above: Performed By: #### A BG ####[facility] Fgljuojwwo1301[address] [place], [place] [address]Dr. Emelina Navarro Base excess Calc (Bld) [Moles/Vol] -6.6000 mmol/L Critically low -2.0-2.0 [facility] Comment on above: Performed By: #### A BG ####[facility] Ndkjmkpnro3367[address] [place], [place] [address]Dr. Emelina Navarro BIPAP PRESSURE Normal [facility] Comment on above: Performed By: #### A BG ####[facility] Qnsryzhvub1074[address] [place], [place] [address]Dr. Emelina Navarro CO2 [Moles/Vol] 34.0 mmol/L Critically high 23.0-28.0 [facility] Comment on above: Performed By: #### A BG ####[facility] Ocglhivsue045[address] [place], [place] [address]Dr. Emelina Navarro CPAP Normal [facility] Comment on above: Performed By: #### A BG ####[facility] Xoioyehdyn4250[address] [place], [place] [address]Dr. Emelina Navarro FIO2 Normal [facility] Comment on above: Performed By: #### A BG ####[facility] Dyhcadlzsa7826[address] [place], [place] [address]Dr. Emelina Navarro HCO3 (Bld) [Moles/Vol] 20.5 mmol/L Critically low 22.0-26.0 [facility] Comment on above: Performed By: #### A BG ####[facility] Jezdcvjujw99[address] [place], [place] [address]Dr. Emelina Navarro LPM 5 Normal [facility] Comment on above: Performed By: #### A BG ####[facility] Xjcphswlea39[address] [place], [place] [address]Dr. Emelina Navarro MINUTE VOLUME Normal [facility] Comment on above: Performed By: #### A BG ####[facility] Zhyicjqtfj755[address] [place], [place] [address]Dr. Emelina Navarro Oxygen (Bld) [Partial pressure] 62.0 mm[Hg] Critically low 80.0-100.0 [facility] Comment on above: Performed By: #### A BG ####[facility] Ixpnsizzkx2252 [place] [address]Dr. Emelina Navarro Oxygen saturation in Blood 92.6 % Critically low 95.0-100.0 [facility] Comment on above: Performed By: #### A BG ####[facility] Wqetkoutlj2088 [place] [address]Dr. Emelina Navarro PCO2 25.7 mmHg Critically low 35.0-45.0 [facility] Comment on above: Performed By: #### A BG ####[facility] [address]knxrxfw43[address] [place], [place] [address]Dr. Emelina Navarro PEEP Normal [facility] Comment on above: Performed By: #### A BG ####[facility] T[address]efltfiq[address] [place], [place] [address]Dr. Emelina Navarro pH (Bld) 7.443 [pH] Normal 7.350-7.45 0 [facility] Comment on above: Performed By: #### A BG ####[facility] Agzlosqvpo[address] [place], [place] [address]Dr. Emelina Navarro PIP Normal [facility] Comment on above: Performed By: #### A BG ####[facility] Owwoocuuph[address] [place], [place] [address]Dr. Emelina Navarro PS Normal [facility] Comment on above: Performed By: #### A BG ####[facility] Sanshlfe[address] [place] [address]Dr. Emelina Navarro PUNCTURE SITE LR Normal [facility] Comment on above: Performed By: #### A BG ####[facility] Ashfmkumvl[address] [place], [place] [address]Dr. Emelina Navarro RATE Normal [facility] Comment on above: Performed By: #### A BG ####[facility] Bejglytynb[address] [place], [place] [address]Dr. Emelina Navarro VENT MODE Normal [facility] Comment on above: Performed By: #### A BG ####[facility] [address]ucqjgnpyb[address] [place] [address]Dr. Emelina Navarro [place] Normal [facility] Comment on above: Performed By: #### A BG ####[facility] Duqyzyuabl40[address] [place] [address]Dr. Emelina Navarro BNPon 04-28-2022 Natriuretic peptide B (Bld) [Mass/Vol] 00724.0 pg/mL Critically high <=900.0 [facility] Comment on above: Performed By: #### C MP, BNP, CMADM ####[facility] Mjhrgpprti[address] [place] [address]Dr. Emelina Navarro CARDIAC IMTIAZ ADMITon 022 CK [Catalytic activity/Vol] 86 U/L Normal 39-308 [facility] Comment on above: Performed By: #### C MP, BNP, CMADM ####[facility] Lmtyolural[address] [place], [place] [address]Dr. Emelina Navarro CK.MB [Mass/Vol] 1.41 ng/mL Normal <=3.60 [facility] Comment on above: Performed By: #### C MP, BNP, CMADM ####[facility] Dlolvhkoyk[address] [place], [place] [address]Dr. Emelina Navarro HSTROP 63.7 pg/mL Normal 4.0-76.1 [facility] Comment on above: Result Comment: CUT- OFF POINTS HAVE BEEN ESTABLISHED BASED ON THE FOURTH UNIVERSAL DEFINITIONS OF MYOCARDIALINFARCTION. THE UPPER REFERENCE LIMIT (URL) OF TROPONIN, DEFINED THE 99TH PERCENTILE OFcTnI DISTRIBUTION IN A REFERENCE POPULATION, HAS BEEN CONFIRMED THE DECISION THRESHOLDFOR [place] DIAGNOSIS. Performed By: #### C MP, BNP, CMADM ####[facility] [address]ie[address]nbknzs[address] [place] [address]Dr. Emelina Navarro URBANO 276 ng/mL Critically high 16-96 The [facility] Comment on above: Performed By: #### C MP, BNP, CMADM ####[facility] Zvvstayxpv[address] [place] [address]Dr. Emelina Navarro CBC AUTO DIFFon 04-28-2022 BASO # 0.0 103/ul Normal 0.0-0.1 [facility] Comment on above: Performed By: #### C BC ####[facility] Qjizfjqwru4724 [place] [id number]. Emelina Navarro Basophils/100 WBC (Bld) 0.2 % Normal 0.2-2.0 [facility] Comment on above: Performed By: #### C BC ####[facility] Aqcwzmljmz2984 [place] [id number]. Emelina Navarro EO # 0.0 103/ul Normal 0.0-0.7 [facility] Comment on above: Performed By: #### C BC ####[facility] Psjuiyrdhv[address] [place], [place] [address]Dr. Emelina Navarro Eosinophils/100 WBC (Bld) 0.1 % Critically low 0.9-7.0 [facility] Comment on above: Performed By: #### C BC ####[facility] Vlqptpny[address] [place], [place] [address]Dr. Emelina Navarro Erythrocyte distribution width (RBC) [Ratio] 16.5 % Critically high 11.0-15.0 [facility] Comment on above: Performed By: #### C BC ####[facility] Bxwcovqxrs2522 [place] [phone]. Emelina Navarro Hematocrit (Bld) [Volume fraction] 45.2 % Normal 42.0-54.0 [facility] Comment on above: Performed By: #### C BC ####[facility] Lgsjvmczst[address] [place], [place] [id number]. Emelina Navarro Hemoglobin (Bld) [Mass/Vol] 14.8 g/dL Normal 14.0-18.0 [facility] Comment on above: Performed By: #### C BC ####[facility] Bssfusfylf79[address] [place] [id number]. Emelina Navarro IG # 0.14 10e3/ul Critically high 0.00-0.03 [facility] Comment on above: Performed By: #### C BC ####[facility] Jmvkzgvsbs8110 [place], [place] [address]At. Emelina Navarro IG % 0.9 % Critically high 0.0-0.5 [facility] Comment on above: Performed By: #### C BC ####[facility] Mpwaaqmhkq7645 [place] [id number]. Emelina Navarro LYMPH # 0.8 103/ul Critically low 1.2-3.8 [facility] Comment on above: Performed By: #### C BC ####[facility] Paljtpumwp2483 [place] [phone]. Emelina Navarro Lymphocytes/100 WBC (Bld) 5.1 % Critically low 20.5-60.0 [facility] Comment on above: Performed By: #### C BC ####[facility] Ozekaahgde3130 [place] [phone]. Emelina Ramon MANUAL DIFF REQ NO Normal [facility] Comment on above: Performed By: #### C BC ####[facility] Igvaakfevv2161 [place] [phone]. Emelina Navaror MCH (RBC) [Entitic mass] 29.3 pg Normal 25.9-34.0 [facility] Comment on above: Performed By: #### C BC ####[facility] Yanmpohoop2777 [place] [phone]. Emelina Navarro MCHC (RBC) [Mass/Vol] 32.7 g/dL Normal 29.9-35.2 [facility] Comment on above: Performed By: #### C BC ####[facility] Fzwvejrazb1170 [place] [phone]. Emelina Navarro MCV (RBC) [Entitic vol] 89.5 fL Normal 80.0-94.0 [facility] Comment on above: Performed By: #### C BC ####[facility] Ycansfagny3788 [place] [phone]. Emelina Ramon MONO # 1.1 103/ul Critically high 0.3-0.8 The [facility] Comment on above: Performed By: #### C BC ####[facility] Yrfxfdjgjk5403 [place] [phone]. Emelina Navarro Monocytes/100 WBC (Bld) 7.0 % Normal 1.7-12.0 [facility] Comment on above: Performed By: #### C BC ####[facility] Rhxcfaadjl3907 [place] [phone]. Emelina Navarro NEUT # 13.3 103/ul Critically high 1.4-6.5 [facility] Comment on above: Performed By: #### C BC ####[facility] Mgqfckklxs0246 [place] [phone]. Emelina Navarro Neutrophils/100 WBC (Bld) 86.7 % Critically high 43.0-75.0 [facility] Comment on above: Performed By: #### C BC ####[facility] Ymgbzfevhy2460 [place] [phone]. Emelina Navarro Platelet mean volume (Bld) [Entitic vol] 10.7 fL Normal 9.5-13.5 [facility] Comment on above: Performed By: #### C BC ####[facility] Jpgdbkrkfo8054 [place] [phone]. Emelina Navarro PLT 200 103/ul Normal 150-450 [facility] Comment on above: Performed By: #### C BC ####[facility] Jnrzxvlaiz7265 [place] [phone]. Emelina Navarro RBC 5.05 106/ul Normal 4.70-6.10 [facility] Comment on above: Performed By: #### C BC ####[facility] Gxljheevoz2167 [place] [phone]. Emelina Navarro WBC 15.4 103/ul Critically high 4.0-11.0 [facility] Comment on above: Performed By: #### C BC ####[facility] Zfxrvhlzsi6733 [place] [phone]. Emelina Navarro CULTURE BLOODon 04-28-2022 Microscopic examination of blood, culture Culture Observations: NO GROWTH AT 5 DAYS. Normal [facility] Comment on above: Performed By: #### B LDCX2 ####[facility] Kvmpretuii4692 [place] [phone]. Emelina Navarro Microscopic examination of blood, culture Culture Observations: NO GROWTH AT 5 DAYS. Normal [facility] Comment on above: Performed By: #### B LDCX1 ####[facility] Fnxhedvssl4091 [place] [phone]. Emelina Navarro Covid-19 PCR (CVDTB)on 04-19 SARS-CoV-2 (COVID-19) RNA RADHA+probe Ql (Unsp spec) Not detected Normal NOT DETECTED [facility] Comment on above: Result Comment: When diagnostic [...] for this test is supported by the [employer] of Health and Human Service's declaration that [...] be used). Performed By: #### C VDTBH ####[facility] Fjqlhhylmt6523 [place] [phone]. Emelina Navarro DIGOXINon 04-28-2022 DIG 0.8 ng/mL Critically low 0.9-2.0 [facility] Comment on above: Performed By: #### D IG ####[facility] Ipbaopzaez3083 [place] [address]DrWesley Navarro ER URINE PROFILEon 2 Bilirubin Ql (U) Negative Normal NEGATIVE [facility] Comment on above: Performed By: #### E LINDSAY POLKRO ####[facility] Iznvphxbhu0290 [place] [phone] Navarro Clarity (U) CLEAR Normal CLEAR [facility] Comment on above: Performed By: #### Hitesh POLK UMICRO ####[facility] Omqkdqsdak[address] [place], [place] [address]Dr. Emelina Navarro Color (U) YELLOW Normal YELLOW [facility] Comment on above: Performed By: #### Hitesh POLK UMICRO ####[facility] Ywzynhqufq7090 [place] [address]Dr. Emelina Navarro ERUAHD A micrscopic examina tion will be performed if indicated. Normal [facility] Comment on above: Performed By: #### Hitesh POLK UMICRO ####[facility] Ymdwpeodqa[address] [place], [place] [address]Dr. Emelina Navarro Glucose Ql (U) 500 mg/dl Abnormal NEGATIVE [facility] Comment on above: Performed By: #### Hitesh POLK UMICRO ####[facility] Z[address]jqfltpyz25[address] [place], [place] [address]Dr. Emelina Navarro Hemoglobin Ql (U) MODERATE Abnormal NEGATIVE [facility] Comment on above: Performed By: #### Hitesh POLK UMICRO ####[facility] Fsowbgrkrd[address] [place], [place] [address]Dr. Emelina Navarro Ketones Ql (U) Negative Normal NEGATIVE [facility] Comment on above: Performed By: #### Hitesh POLK UMICRO ####[facility] Agmfnuhvis90[address] [place], [place] [address]Dr. Emelina Navarro LEUKOCYTES Negative Normal NEGATIVE [facility] Comment on above: Performed By: #### Hitesh POLK UMICRO ####[facility] Ouavpsgwgd16[address] [place], [place] [address]Dr. Emelina Navarro Nitrite Ql (U) Negative Normal NEGATIVE [facility] Comment on above: Performed By: #### Hitesh POLK UMICRO ####[facility] Zrppftryqn[address] [place], [place] [address]Dr. Emelina Navarro pH (U) 5.0 [pH] Normal 5-9 [facility] Comment on above: Performed By: #### LINDSAY BOLANDRO ####[facility] Kfabxatsoz9140 [place] [address]Dr. Emelina Navarro Protein (U) [Mass/Vol] 100 mg/dL Abnormal NEGATIVE/ TRACE [facility] Comment on above: Performed By: #### LINDSAY BOLANDRO ####[facility] Ecopohmkzn9667 [place] [address]Dr. Emelina Navarro SPEC GRAVITY 1.025 Normal 1.005-<=1. 025 [facility] Comment on above: Performed By: #### LINDSAY BOLANDRO ####[facility] Lnnhycnuyr[address] [place], [place] [address]Dr. Emelina Navarro UR MICRO IND INDICATED Normal [facility] Comment on above: Performed By: #### LINDSAY BOLANDRO ####[facility] I[address]swhfelb4[address] [place], [place] [address]Dr. Emelina Navarro Urobilinogen Qn (U) 0.2 {Ashley'U}/dL Normal 0.2 - 1. 0 [facility] Comment on above: Performed By: #### LINDSAY BOLANDRO ####[facility] F[address]qgvmpyf[address] [place], [place] [address]Dr. Emelina Navarro LACTATE/LACTIC ACIDon 2021 Lactate [Moles/Vol] 5.1 mmol/L Critically high 0.4-1.9 [facility] Comment on above: Performed By: #### L ACT ####[facility] Jvgkdsuxci[address] [place], [place] [address]Dr. Emelina Navarro Lactate [Moles/Vol] 4.8 mmol/L Critically high 0.4-1.9 [facility] Comment on above: Performed By: #### L ACT ####[facility] K[address]wwzdceea[address] [place], [place] [address]Dr. Emelina Navarro Lactate [Moles/Vol] 5.4 mmol/L Critically high 0.4-1.9 [facility] Comment on above: Performed By: #### L ACT ####[facility] Zebuuxtslg[address] [place], [place] [address]Dr. Emelina Navarro POINT OF CARE GLUCOSEon 04-19 0 Glucose [Mass/Vol] 426 mg/dL Critically high 74-106 [facility] Comment on above: Performed By: #### P OCGLUC ####[facility] Rouiojimwa[address] [place] [address]Dr. Emelina Navarro Glucose [Mass/Vol] 476 mg/dL Critically high 74-106 [facility] Comment on above: Performed By: #### P OCGLUC ####[facility] Ctidavcptf9927 [place] [address]Dr. Emelina Navarro Glucose [Mass/Vol] 347 mg/dL Critically high 74-106 [facility] Comment on above: Performed By: #### P OCGLUC ####[facility] Oayleubbix3502 [place] [address]Dr. Emelina Navarro PROF 14(COMP METB)on 022 Albumin [Mass/Vol] 3.4 g/dL Normal 3.4-5.0 [facility] Comment on above: Performed By: #### C MP, BNP, CMADM ####[facility] Zvrtpttdkh3105 [place] [address]Dr. Emelina Navarro Albumin/Globulin [Mass ratio] 0.8 {ratio} Normal [facility] Comment on above: Performed By: #### C MP, BNP, CMADM ####[facility] Nasyjdzubj2271 [place] [address]Dr. Emelina Navarro ALP [Catalytic activity/Vol] 85 U/L Normal 46-116 [facility] Comment on above: Performed By: #### C MP, BNP, CMADM ####[facility] Umythrdmbw7896 [place] [address]Dr. Emelina Navarro ALT [Catalytic activity/Vol] 246 U/L Critically high 16-63 [facility] Comment on above: Performed By: #### C MP, BNP, CMADM ####[facility] Zllhdhwgba2969 [place] [address]Dr. Emelina Navarro Anion gap [Moles/Vol] 20.7 mmol/L Normal [facility] Comment on above: Performed By: #### C MP, BNP, CMADM ####[facility] Ltczqzgzmy8199 [place] [address]Dr. Emelina Navarro AST [Catalytic activity/Vol] 299 U/L Critically high 15-37 [facility] Comment on above: Performed By: #### C MP, BNP, CMADM ####[facility] Vhtsfpogzs6671 [place] [address]Dr. Emelina Navarro Bilirubin [Mass/Vol] 2.7 mg/dL Critically high 0.2-1.0 [facility] Comment on above: Performed By: #### C MP, BNP, CMADM ####[facility] Uzdhtysetz7712 [place] [address]Dr. Emelina Navarro Calcium [Mass/Vol] 8.5 mg/dL Normal 8.5-10.1 [facility] Comment on above: Performed By: #### C MP, BNP, CMADM ####[facility] Ynkafdvmkx[address] [place], [place] [address]Dr. Emelina Navarro Chloride [Moles/Vol] 96 mmol/L Critically low 98-107 [facility] Comment on above: Performed By: #### C MP, BNP, CMADM ####[facility] [address]yogqoa34[address] [place], [place] [address]Dr. Emelina Navarro CO2 [Moles/Vol] 19.3 mmol/L Critically low 21.0-32.0 [facility] Comment on above: Performed By: #### C MP, BNP, CMADM ####[facility] Y[address]vwsxegz9[address] [place], [place] [address]Dr. Emelina Navarro Creatinine [Mass/Vol] 2.46 mg/dL Critically high 0.70-1.30 [facility] Comment on above: Performed By: #### C MP, BNP, CMADM ####[facility] Ahjpzyxskk[address] [place], [place] [address]Dr. Emelina Navarro EGFR-AF SURINAMESE 32 mL/min/1.73m2 Critically low >=60 [facility] Comment on above: Performed By: #### C MP, BNP, CMADM ####[facility] Yxnplvkqgt4222 [place] [address]Dr. Emelina Navarro EGFR-NON AF SURINAMESE 26 mL/min/1.73m2 Critically low >=60 [facility] Comment on above: Performed By: #### C MP, BNP, CMADM ####[facility] Jjywnvcekw3214 [place] [address]Dr. Emelina Navarro Globulin (S) [Mass/Vol] 4.4 g/dL Normal [facility] Comment on above: Performed By: #### C MP, BNP, CMADM ####[facility] Wnradjymjy8906 [place] [address]Dr. Emelina Navarro Glucose [Mass/Vol] 359 mg/dL Critically high 74-106 [facility] Comment on above: Performed By: #### C MP, BNP, CMADM ####[facility] Bljcffgnzz0202 [place] [address]Dr. Emelina Navarro Potassium [Moles/Vol] 7.0 mmol/L Critically high 3.5-5.1 [facility] Comment on above: Performed By: #### C MP, BNP, CMADM ####[facility] Qvonabqbxg699[address] [place], [place] [address]Dr. Emelina Navarro Protein [Mass/Vol] 7.8 g/dL Normal 6.4-8.2 [facility] Comment on above: Performed By: #### C MP, BNP, CMADM ####[facility] Zibgadlqqe5067 [place] [address]Dr. Emelina Navarro Sodium [Moles/Vol] 129 mmol/L Critically low 136-145 [facility] Comment on above: Performed By: #### C MP, BNP, CMADM ####[facility] Hsvigqpvkw[address] [place], [place] [address]Dr. Emelina Navarro Urea nitrogen [Mass/Vol] 37.0 mg/dL Critically high 7.0-18.0 [facility] Comment on above: Performed By: #### C MP, BNP, CMADM ####[facility] Mppxvsmyei0297 [place] [address]Dr. Emelina Navarro Urea nitrogen/Creatinine [Mass ratio] 15.0 mg/mg Normal [facility] Comment on above: Performed By: #### C MP, BNP, CMADM ####[facility] Ffwtjuxevh97[address] [place], [place] [address]Dr. Emelina Ramon PROF CHEM 8 (BAS METB)on Anion gap [Moles/Vol] 19.2 mmol/L Normal [facility] Comment on above: Performed By: #### B MP ####[facility] Tcxgjeorch54[address] [place], [place] [address]Dr. Emelina Navarro Calcium [Mass/Vol] 7.7 mg/dL Critically low 8.5-10.1 [facility] Comment on above: Performed By: #### B MP ####[facility] Bqtnexplbz9032[address] [place], [place] [address]Dr. Emelina Navaror Chloride [Moles/Vol] 97 mmol/L Critically low 98-107 [facility] Comment on above: Performed By: #### B MP ####[facility] Zuxipuhjuc99[address] [place], [place] [address]Dr. Emelina Navarro CO2 [Moles/Vol] 20.5 mmol/L Critically low 21.0-32.0 [facility] Comment on above: Performed By: #### B MP ####[facility] Erzjiyeehd14[address] [place], [place] [address]Dr. Emelina Navarro Creatinine [Mass/Vol] 2.18 mg/dL Critically high 0.70-1.30 [facility] Comment on above: Performed By: #### B MP ####[facility] Wikwuvpgpx494[address] [place], [place] [address]Dr. Emelina Navarro EGFR-AF SURINAMESE 37 mL/min/1.73m2 Critically low >=60 [facility] Comment on above: Performed By: #### B MP ####[facility] Fwlvebifsb36[address] [place], [place] [address]Dr. Emelina Navarro EGFR-NON AF SURINAMESE 30 mL/min/1.73m2 Critically low >=60 [facility] Comment on above: Performed By: #### B MP ####[facility] Mecywbzlgj9140 [place] [id number]. Emelina Navarro Glucose [Mass/Vol] 434 mg/dL Critically high 74-106 [facility] Comment on above: Performed By: #### B MP ####[facility] Srymgqckla2970 [place] [address]Dr. Emelina Navarro Potassium [Moles/Vol] 4.7 mmol/L Normal 3.5-5.1 [facility] Comment on above: Performed By: #### B MP ####[facility] Mfwvbvnvvu7[address] [place], [place] [address]Dr. Emelina Navarro Sodium [Moles/Vol] 132 mmol/L Critically low 136-145 [facility] Comment on above: Performed By: #### B MP ####[facility] Lwbvvnocxl13[address] [place], [place] [address]Dr. Emelina Navarro Urea nitrogen [Mass/Vol] 37.0 mg/dL Critically high 7.0-18.0 [facility] Comment on above: Performed By: #### B MP ####[facility] Bcczqzmepi24[address] [place], [place] [address]Dr. Emelina Navarro Urea nitrogen/Creatinine [Mass ratio] 17.0 mg/mg Normal [facility] Comment on above: Performed By: #### B MP ####[facility] Inhwxsefzu7034[address] [place], [place] [address]Dr. Emelina Navarro PROTIMEon 04-28-2022 INR Coag (PPP) [Relative time] 1.91 {INR} Normal [facility] Comment on above: Performed By: #### P TT, PT ####[facility] Vsunzkseqe6138[address] [place], [place] [address]Dr. Emelina Navarro INR GUIDELINES SEE BELOW Normal [facility] Comment on above: Result Comment: WENDY RED INR: 2.0 - 3.0 CONDITIONS NOT LISTED BELOW 2.5 - 3.5 FOR PROSTHETIC HEART VALVE REPLACEMENT 2.5 - 3.5 RECURRENT THROMBOSIS Performed By: #### P TT, PT ####[facility] Ydlxtksqmg2724[address] [place], [place] [address]Dr. Emelina Navarro PT Coag (PPP) [Time] 19.8 s Critically high 9.0-11.6 [facility] Comment on above: Performed By: #### P TT, PT ####[facility] Odfdiitnmr2144[address] [place], [place] [address]Dr. Emelina Navarro PTTon 04-28-2022 aPTT Coag (Bld) [Time] 33.0 s Normal 22.3-36.2 [facility] Comment on above: Performed By: #### P TT, PT ####[facility] Ljlwxhcste7[address] [place], [place] [address]Dr. Emelina Navarro RESPIRATORY PANEL PLUSon Adenovirus Not detected Normal NOT DETECTED [facility] Comment on above: Performed By: #### R SPLUS ####[facility] Diukvnrkmw6516[address] [place], [place] [address]Dr. Emelina Navarro B. Parapertusis Not detected Normal NOT DETECTED [facility] Comment on above: Performed By: #### R SPLUS ####[facility] M[address]zxfndrjd64[address] [place], [place] [address]Dr. Emelina Navarro B. Pertussis Not detected Normal NOT DETECTED [facility] Comment on above: Performed By: #### R SPLUS ####[facility] [address]qwimfa8[address] [place], [place] [address]Dr. Emelina Navarro Chlamydia Pneumoniae Not detected Normal NOT DETECTED [facility] Comment on above: Performed By: #### R SPLUS ####[facility] Zvbirxgpqr77[address] [place], [place] [address]Dr. nitza Navarro Coronavirus 229E Not detected Normal NOT DETECTED [facility] Comment on above: Performed By: #### R SPLUS ####[facility] Vhbiwhqgkj[address] [place], [place] [address]Dr. nitza Navarro Coronavirus HKU1 Not detected Normal NOT DETECTED [facility] Comment on above: Performed By: #### R SPLUS ####[facility] [facility] [id number] [place], [place] [address]Dr. nitza [facility] Coronavirus NL63 Not detected Normal NOT DETECTED [facility] Comment on above: Performed By: #### R SPLUS ####[facility] [address]wc[address] [place] [address]Dr. Emelina [facility] Coronavirus OC43 Not detected Normal NOT DETECTED [facility] Comment on above: Performed By: #### R SPLUS ####[facility] [address] [place], [place] [address]Dr. Emelina Navarro Influenza A H1 2009 Not detected Normal NOT DETECTED [facility] Comment on above: Performed By: #### R SPLUS ####[facility] M[address] [place], [place] [address]Dr. Emelina Navarro Influenza A H3 Not detected Normal NOT DETECTED [facility] Comment on above: Performed By: #### R SPLUS ####[facility] Lmkfmbfsxn[address] [place], [place] [address]Dr. Emelina Navarro Influenza B Not detected Normal NOT DETECTED [facility] Comment on above: Performed By: #### R SPLUS ####[facility] Sr[address]lsqahtq[address] [place], [place] [address]Dr. Emelina Navarro Metapneumovirus Not detected Normal NOT DETECTED [facility] Comment on above: Performed By: #### R SPLUS ####[facility] [address]al[address] [place], [place] [address]Dr. Emelina Navarro Mycoplas. Pneumoniae Not detected Normal NOT DETECTED [facility] Comment on above: Performed By: #### R SPLUS ####[facility] [address] [place], [place] [address]Dr. Emelina Navarro Parainfluenza 1 Not detected Normal NOT DETECTED [facility] Comment on above: Performed By: #### R SPLUS ####[facility] [address]fne[address] [place], [place] [address]Dr. Emelina Navarro Parainfluenza 2 Not detected Normal NOT DETECTED [facility] Comment on above: Performed By: #### R SPLUS ####[facility] [address]or[address] [place], [place] [address]Dr. Emelina Navarro Parainfluenza 3 Detected Abnormal NOT DETECTED [facility] Comment on above: Performed By: #### R SPLUS ####[facility] Ugdfam[address] [place], [place] [id number]. Emelina Navarro Parainfluenza 4 Not detected Normal NOT DETECTED [facility] Comment on above: Performed By: #### R SPLUS ####[facility] T[address] [place], [place] [address]Dr. Emelina Navarro Rhino/Enterovirus Not detected Normal NOT DETECTED [facility] Comment on above: Performed By: #### R SPLUS ####[facility] [address] [place], [place] [address]Dr. Emelina Navarro RP2 Header 1 RESPIRATORY PANEL: VIRUSES Normal [facility] Comment on above: Performed By: #### R SPLUS ####[facility] [address]ls[address] [place], [place] [address]Dr. Emelina Navarro RP2 Header 2 RESPIRATORY PANEL: BACTERIA Normal [facility] Comment on above: Performed By: #### R SPLUS ####[facility] I[address]rehwuii[address] [place], [place] [address]Dr. Emelina Navarro RSV Not detected Normal NOT DETECTED [facility] Comment on above: Performed By: #### R SPLUS ####[facility] Bybcybsars[address] [place], [place] [address]Dr. Emelina Navarro SARS-CoV-2 (COVID-19) RNA RADHA+probe Ql (Unsp spec) Not detected Normal NOT DETECTED [facility] Comment on above: Performed By: #### R SPLUS ####[facility] E[address]qi[address] [place], [place] [address]Dr. Emelina Navarro URINE MICROSCOPIC ONLYon BACTERIA NONE SEEN Normal NONE SEEN [facility] Comment on above: Performed By: #### LINDSAY BOLANDRO ####[facility] [address] [place], [place] [address]Dr. Emelina Navarro Bacteria identified Cx Nom (U) NOT INDICATED Normal [facility] Comment on above: Performed By: #### LINDSAY BOLANDRO ####[facility] [address] [place], [place] [address]Dr. Emelina Navarro CAST SEEN Abnormal NONE SEEN [facility] Comment on above: Performed By: #### E RUR, UMICRO ####[facility] [address] [place] [address]Dr. Emelina Navarro Crystals LM Nom (Urine sed) NONE SEEN Normal NONE SEEN [facility] Comment on above: Performed By: #### Hitesh POLK UMICRO ####[facility] [address] [place] [address]Dr. Emelina Navarro Epithelial cells LM Ql (Urine sed) FEW Abnormal NONE SEEN /RARE [facility] Comment on above: Performed By: #### Hitesh POLK UMICRO ####[facility] [address] [place] [address]Dr. Emelina Navarro HYALINE CAST MANY Normal [facility] Comment on above: Performed By: #### Hitesh POLK UMICRO ####[facility] [address] [place] [address]Dr. Emelina Navarro MUCOUS NONE SEEN Normal NONE SEEN [facility] Comment on above: Performed By: #### Hitesh POLK UMICRO ####[facility] [address] [place] [address]Dr. Emelina Navarro RBC 0-2 Normal 0-2 [facility] Comment on above: Performed By: #### RAMANDEEP BOLANDICRO ####[facility] [address] [place] [address]Dr. Emelina Navarro WBC 0-2 Abnormal NONE SEEN [facility] Comment on above: Performed By: #### Hitesh POLK UMICRO ####[facility] [address] [place] [address]Dr. Emelina Navarro XR CHEST 1 Von 04-28-2022 XR CHEST 1 V Normal [facility] Albumin [Mass/volume] in Ser um or PlasmaOrdered By: Ethan Cummings on 04-10-2022 Albumin [Mass/Vol] 3.8 g/dL 2.9-4.4 [facility] IgA [Mass/volume] in Serum o r PlasmaOrdered By: Ethan Cummings on 04-10-2022 IgA [Mass/Vol] 607 mg/dL 61-437 [facility] IgG [Mass/volume] in Serum o r PlasmaOrdered By: Ethan Cummings on 04-10-2022 IgG [Mass/Vol] 1207 mg/dL 603-1613 [facility] IgM [Mass/volume] in Serum o r PlasmaOrdered By: Ethan Cummings on 04-10-2022 IgM [Mass/Vol] 94 mg/dL 20-172 [facility] Comment on above: Performed at: [employer] [place], [place] [id number] Director: Alexis Winslow PhD, Phone: [phone] Immunoglobulin light chains. kappa.free [Mass/volume] in SerumOrdered By: Ethan Cummings on 04-10-2022 Immunoglobulin light chains.kappa.free (S) [Mass/Vol] 58.6 mg/L 3.3-19.4 [facility] Immunoglobulin light chains. kappa.free/Immunoglobulin light chains.lambda.free [MassOrdered By: Ethan Cummings on 04-10-2022 Immunoglobulin light chains.kappa.free/Imm unoglobulin light chains.lambda.free (S) [Mass ratio] 1.42 0.26-1.65 [facility] Comment on above: Performed at: [employer] [place] [id number] Director: Alexis Winslow PhD, Phone: [phone] Immunoglobulin light chains. lambda.free [Mass/volume] in Serum or PlasmaOrdered By: Ethan Cummings on 04-10-2022 Immunoglobulin light chains.lambda.free [Mass/Vol] 41.2 mg/L 5.7-26.3 [facility] - Hematology and Cell countsOrdered By: Ethan Cummings on 04-10-2022 Nucleated RBC/100 WBC (Bld) [Ratio] 0.0 % 0-0.5 [facility] No Panel InformationOrdered By: Ethan Cummings on 04-10-2022 BCR/abl See comment [facility] Comment on above: See report. Scanned copy available in EMR. CBC Comment See comment [facility] Comment on above: Slide referred to raquel thshiva for review Platelet Estimate Normal Normal [facility] Platelet Morphology Comment Normal Normal [facility] Protein Electrophoresis M-Brenden Not observed g/dL Not Observed [facility] Protein Electrophoresis Note See comment . [facility] Comment on above: Protein electrophore sis scan will follow via computer,mail, or metal off bearer delivery.Performed at: [facility] [id number] [place], [place] [id number] Director: Alexis Winslow PhD, Phone: [phone] Serum Immunofixation See comment . [facility] Comment on above: No monoclonality det ected. Protein [Mass/volume] in Ser um or PlasmaOrdered By: Ethan Cummings on 04-10-2022 Protein [Mass/Vol] 7.4 g/dL 6.0-8.5 [facility] RBC morphologyOrdered By: Francis Cummings on 04-10-2022 RBC morphology finding Nom (Bld) Normal [facility] Serum globulin measurement ( mass/volume)Ordered By: Ethan Cummings on 04-10-2022 Globulin (S) [Mass/Vol] 3.6 g/dL 2.2-3.9 [facility] Serum or plasma albumin/glob ulin mass ratioOrdered By: Ethan Cummings on 04-10-2022 Albumin/Globulin [Mass ratio] 1.1 {ratio} 0.7-1.7 [facility] Serum or plasma alpha 1 glob ulin measurement by electrophoresis (mass/volume)Ordered By: Ethan Cummings on 04-10-2022 Alpha 1 globulin Elph [Mass/Vol] 0.2 g/dL 0.0-0.4 [facility] Serum or plasma alpha 2 glob ulin measurement by electrophoresis (mass/volume)Ordered By: Ethan Cummings on 04-10-2022 Alpha 2 globulin Elph [Mass/Vol] 0.9 g/dL 0.4-1.0 [facility] Serum or plasma beta globuli n measurement by electrophoresis (mass/volume)Ordered By: Ethan Cummings on 04-10-2022 Beta globulin Elph [Mass/Vol] 1.2 g/dL 0.7-1.3 [facility] Serum or plasma gamma globul in measurement by electrophoresis (mass/volume)Ordered By: Ethan Cummings on 04-10-2022 Gamma globulin Elph [Mass/Vol] 1.3 g/dL 0.4-1.8 [facility] Serum or plasma methylmalona te measurement (moles/volume)Ordered By: Ethan Cummings on 04-10-2022 Methylmalonate [Moles/Vol] 668 nmol/L 0-378 [facility] Comment on above: This test was develo ped and its performance characteristicsdetermined by [employer]. It has not been cleared orapproved by the Food and Drug Administration.Performed at: [address] [id number] Director: Natalia Vergara MD, Phone: [phone] XR foot LT min 3V*on 022 XR foot LT min 3V* [facility] [employer] Other XR foot LT min 3V* [facility] [employer] Other XR foot LT min 3V* [address] [place] [address] [employer] Other XR foot LT min 3V* [place] [id number] [employer] Other XR foot LT min 3V* XRay Report [employer] Other XR foot LT min 3V* Signed [employer] Other XR foot LT min 3V* Patient: Adwoa Porter MR#: [id number] [employer] Other XR foot LT min 3V* 7 [employer] Other XR foot LT min 3V* : 1955 Acct:[id number] [employer] Other XR foot LT min 3V* Age/Sex: 66 / M ADM Date: 02/19/22 [employer] Other XR foot LT min 3V* Loc: XDUCLY Room: Ty pe: REG CLI [employer] Other XR foot LT min 3V* Attending Dr: Ruthie EUCEDA [employer] Other XR foot LT min 3V* Ordering Provider: SHARIF JiménezC [employer] Other XR foot LT min 3V* Date of Service: 02/19/22 [employer] Other XR foot LT min 3V* [id number]) XR/XR foot LT min 3V*: Left foot pain [employer] Other XR foot LT min 3V* Copies to: KINSEY Mancia [employer] Other XR foot LT min 3V* LEFT FOOT - 3 views [employer] Other XR foot LT min 3V* CLINICAL HISTORY: Le ft foot pain. [employer] Other XR foot LT min 3V* COMPARISON: Left tessie t series 02/09/2020 [employer] Other XR foot LT min 3V* FINDINGS: [employer] Other XR foot LT min 3V* Soft tissue swelling is noted. Since the prior study, as been interval partial amputation of the [employer] Other XR foot LT min 3V* first digit. 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 Questionable [employer] Other XR foot LT min 3V* subluxation/dislocat ion involving the PIP joint of the second digit. No definite plain film [employer] Other XR foot LT min 3V* evidence of osteomyelitis. [employer] Other XR foot LT min 3V* X R/XR foot LT min 3V* [employer] Other XR foot LT min 3V* IMPRESSION: [employer] Other XR foot LT min 3V* QUESTIONABLE SUBLUXATION/DISLOCATION INVOLVING THE PIP JOINT OF THE SECOND DIGIT. SOFT TISSUE [employer] Other XR foot LT min 3V* SWELLING. [employer] Other XR foot LT min 3V* Impression dictated by: Brennan Salgado Jr., D.O.02/19/2022 11:52 AM [employer] Other XR foot LT min 3V* Dictation Location: [place] [address] [employer] Other XR foot LT min 3V* Transcribed By: PWS 02/19/22 1152 [employer] Other XR foot LT min 3V* Dictated By: Brennan Salgado Jr, DO 02/19/22 1148 [employer] Other XR foot LT min 3V* Signed By: [employer] Other XR foot LT min 3V* 02/19/22 1152 [facility] [employer] Other Glucose - FINGER STICKon Glucose [Mass/Vol] 166 mg/dL [employer] Other A1C HEMOGLOBINon 11-16-2021 HbA1c (Bld) [Mass fraction] 10.7 % [employer] Other Glucose - FINGER STICKon Glucose [Mass/Vol] 205 mg/dL [employer] Other HbA1c (Bld) [Mass fraction]o n 11-16-2021 A1C HEMOGLOBIN [employer] Other Glucose - FINGER STICKon Glucose [Mass/Vol] 158 mg/dL [employer] Other BASIC METABOLIC PANELon 05-3 0 Calcium [Mass/Vol] 9.9 mg/dL Normal 8.6-10.3 [facility] Comment on above: Order Comment: No: D o not add to previous draw Performed By: #### 9 9909, 58546, 80482, 10682 #### [facility] [address] [place] [address], [place] Chloride [Moles/Vol] 93 mmol/L Low 98-107 [facility] Comment on above: Order Comment: No: D o not add to previous draw Performed By: #### 9 9909, 94366, 13613, 97335 #### [facility] [address] [place] [address], [place] CO2 [Moles/Vol] 32 mmol/L High 21-31 [facility] Comment on above: Order Comment: No: D o not add to previous draw Performed By: #### 9 9909, 43935, 07877, 15896 #### [facility] [address] [place] [address], [place] Creatinine [Mass/Vol] 1.89 mg/dL High 0.70-1.30 [facility] Comment on above: Order Comment: No: D o not add to previous draw Performed By: #### 9 9909, 80679, 16400, 24363 #### [facility] [address] [place] [address], [place] eGFR- 43 ml/min/1.73sq m Abnormal >60 [facility] Comment on above: Order Comment: No: D o not add to previous draw Performed By: #### 9 9909, 93821, 28011, 71376 #### [facility] [address] [place] [address], [place] eGFR- non- 36 ml/min/1.73sq m Abnormal >60 [facility] Comment on above: Order Comment: No: D o not add to previous draw Performed By: #### 9 9909, 94433, 37581, 24477 #### [facility] [address] [place] [address], [place] Glucose [Mass/Vol] 217 mg/dL High 70-100 [facility] Comment on above: Order Comment: No: D o not add to previous draw Performed By: #### 9 9909, 47509, 74525, 50045 #### [facility] [address] [place] [address], [place] Potassium [Moles/Vol] 4.2 mmol/L Normal 3.5-5.1 [facility] Comment on above: Order Comment: No: D o not add to previous draw Performed By: #### 9 9909, 49266, 56108, 94245 #### [facility] [address] [place] [address], [place] Sodium [Moles/Vol] 135 mmol/L Low 136-145 [facility] Comment on above: Order Comment: No: D o not add to previous draw Performed By: #### 9 9909, 44964, 10957, 31408 #### [facility] [address] [place] [address], [place] Urea nitrogen [Mass/Vol] 53 mg/dL High 7-25 [facility] Comment on above: Order Comment: No: D o not add to previous draw Performed By: #### 9 9909, 76113, 24842, 61376 #### [facility] [address] [place] [address], [facility] POC GLUCOSE LABon 04-17-2021 Glucose [Mass/Vol] 274 mg/dL High 70-100 [facility] Comment on above: Performed By: #### 8 5499 #### [facility] [address] [place] [address], [facility] PROTHROMBIN TIMEon INR Coag (PPP) [Relative time] 1.76 {INR} High 0.91-1.16 [facility] Comment on above: Order Comment: No: D [...] 1995;108:231S-246S. Performed By: #### 3 5200 #### [facility] [address] PT Coag (PPP) [Time] 20.6 s High 12.3-14.8 [facility] Comment on above: Order Comment: No: D o not add to previous draw Result Comment: ALL RESULTS MUST BE INTERPRETED WITH RESPECT TO BLOOD DRAWING ARTIFACT OR DILUTION ERROR OF ANTICOAGULANT AT THE TIME OF SAMPLING. Performed By: #### 3 5200 #### [facility] [address] [facility] INR Coag (PPP) [Relative time] 1.64 {INR} High 0.91-1.16 [facility] Comment on above: Order Comment: No: D [...] 1995;108:[id number]. Performed By: #### 3 5200 #### [facility] [address] [facility]. [address] PT Coag (PPP) [Time] 19.5 s High 12.3-14.8 [facility] Comment on above: Order Comment: No: D o not add to previous draw Result Comment: ALL RESULTS MUST BE INTERPRETED WITH RESPECT TO BLOOD DRAWING ARTIFACT OR DILUTION ERROR OF ANTICOAGULANT AT THE TIME OF SAMPLING. Performed By: #### 3 5200 #### [facility] [address] [facility] [address] BASIC METABOLIC PANELon 05-2 Calcium [Mass/Vol] 10.0 mg/dL Normal 8.6-10.3 [facility] Comment on above: Order Comment: No: D o not add to previous draw Performed By: #### 1 69, 79028 #### [facility] [address] [facility] [place] [place] [address], [facility] Chloride [Moles/Vol] 92 mmol/L Low 98-107 [facility] Comment on above: Order Comment: No: D o not add to previous draw Performed By: #### 1 69, 57768 #### [facility] [address] [facility] [place] [address], [facility] CO2 [Moles/Vol] 35 mmol/L High 21-31 [facility] Comment on above: Order Comment: No: D o not add to previous draw Performed By: #### 1 69, 11258 #### [facility] [address] [place] [address], [place] Creatinine [Mass/Vol] 1.89 mg/dL High 0.70-1.30 [facility] Comment on above: Order Comment: No: D o not add to previous draw Performed By: #### 1 69, 59980 #### [facility] [address] [place] [address], [facility] eGFR- 43 ml/min/1.73sq m Abnormal >60 [facility] Comment on above: Order Comment: No: D o not add to previous draw Performed By: #### 1 69, 46504 #### [facility] [address] [place] [address], [facility] eGFR- non- 36 ml/min/1.73sq m Abnormal >60 [facility] Comment on above: Order Comment: No: D o not add to previous draw Performed By: #### 1 69, 05586 #### [facility] [address] [place] [address], [place] Glucose [Mass/Vol] 187 mg/dL High 70-100 [facility] Comment on above: Order Comment: No: D o not add to previous draw Performed By: #### 1 69, #### [facility] [address] [place] [address], [place] Potassium [Moles/Vol] 4.1 mmol/L Normal 3.5-5.1 [facility] Comment on above: Order Comment: No: D o not add to previous draw Performed By: #### 1 69, 39659 #### [facility] [address] [place] [address], [place] Sodium [Moles/Vol] 137 mmol/L Normal 136-145 [facility] Comment on above: Order Comment: No: D o not add to previous draw Performed By: #### 1 69, 10617 #### [facility] [address] Urea nitrogen [Mass/Vol] 52 mg/dL High 7-25 [facility] Comment on above: Order Comment: No: D o not add to previous draw Performed By: #### 1 0070, 98873 #### [facility] [address] [facility] [place] [address], [facility] CBC W/DIFFon 04-16-2021 ABS IMM GRANS 0.0 10*3/uL Normal 0.0-0.2 [facility] Comment on above: Order Comment: No: D o not add to previous draw Performed By: #### 3 5200 #### [facility] [address] [place] [address], [facility] ABS NEUTROPHILS 5.9 10*3/uL Normal 1.6-7.6 [facility] Comment on above: Order Comment: No: D o not add to previous draw Performed By: #### 3 5200 #### [facility] [address] [place] [address], [facility] Basophils (Bld) [#/Vol] 0.0 10*3/uL Normal 0.0-0.2 [facility] Comment on above: Order Comment: No: D o not add to previous draw Performed By: #### 3 5200 #### [facility] [address] [facility] [place] [place] [address], [facility] Basophils/100 WBC (Bld) 0.3 % Normal 0.0-1.0 [facility] Comment on above: Order Comment: No: D o not add to previous draw Performed By: #### 3 5200 #### [facility] [address] [facility] [place] [address], [facility] Eosinophils (Bld) [#/Vol] 0.4 10*3/uL Normal 0.0-0.5 [facility] Comment on above: Order Comment: No: D o not add to previous draw Performed By: #### 3 5200 #### [facility] [address] [place] [address], [facility] Eosinophils/100 WBC (Bld) 4.3 % Normal 0.0-6.0 [facility] Comment on above: Order Comment: No: D o not add to previous draw Performed By: #### 3 5200 #### [facility] [address] [place] [address], [facility] Erythrocyte distribution width (RBC) [Ratio] 16.1 % High 11.5-15.0 [facility] Comment on above: Order Comment: No: D o not add to previous draw Performed By: #### 3 5200 #### [facility] [address] [place] [address], [facility] Hematocrit (Bld) [Volume fraction] 37.0 % Low 39.0-50.0 [facility] Comment on above: Order Comment: No: D o not add to previous draw Performed By: #### 3 5200 #### [facility] [address] [place] [address], [facility] Hemoglobin (Bld) [Mass/Vol] 11.4 g/dL Low 13.0-17.0 [facility] Comment on above: Order Comment: No: D o not add to previous draw Performed By: #### 3 5200 #### [facility] [address] [facility] [place] [address], [facility] IMMATURE GRANS 0.3 % Normal 0.0-1.0 [facility] Comment on above: Order Comment: No: D o not add to previous draw Performed By: #### 3 5200 #### [facility] [address] [facility] [place] [address], [facility] Lymphocytes (Bld) [#/Vol] 1.8 10*3/uL Normal 1.2-4.0 [facility] Comment on above: Order Comment: No: D o not add to previous draw Performed By: #### 3 5200 #### [facility] [address] Lymphocytes/100 WBC (Bld) 20.7 % Normal 20.0-45.0 [facility] Comment on above: Order Comment: No: D o not add to previous draw Performed By: #### 3 5200 #### [facility] [address] [place] [id number], [facility] MCH (RBC) [Entitic mass] 27.1 pg Normal 27.0-33.0 [facility] Comment on above: Order Comment: No: D o not add to previous draw Performed By: #### 3 5200 #### [facility] [address] [place] [address], [facility] MCHC (RBC) [Mass/Vol] 30.8 g/dL Low 32.0-35.0 [facility] Comment on above: Order Comment: No: D o not add to previous draw Performed By: #### 3 5200 #### [facility] 3000 [facility] [place] [address], [facility] MCV (RBC) [Entitic vol] 88.1 fL Normal 82.0-98.0 [facility] Comment on above: Order Comment: No: D o not add to previous draw Performed By: #### 3 5200 #### [facility] [address] [place] [address], [facility] Monocytes (Bld) [#/Vol] 0.7 10*3/uL Normal 0.1-1.0 [facility] Comment on above: Order Comment: No: D o not add to previous draw Performed By: #### 3 5200 #### [facility] [address] [place] [address], [facility] MONOS 7.9 % Normal 5.0-12.0 [facility] Comment on above: Order Comment: No: D o not add to previous draw Performed By: #### 3 5200 #### [facility] [address] [place] [address], [facility] Neutrophils/100 WBC (Bld) 66.5 % Normal 40.0-72.0 [facility] Comment on above: Order Comment: No: D o not add to previous draw Performed By: #### 3 5200 #### [facility] [address] [place] [address], [place] Nucleated RBC/100 WBC (Bld) [Ratio] 0 % Normal 0-0 [facility] Comment on above: Order Comment: No: D o not add to previous draw Performed By: #### 3 5200 #### [facility] [address] [place] [address], [place] PLAT CNT 189 10*3/uL Normal 150-400 [facility] Comment on above: Order Comment: No: D o not add to previous draw Performed By: #### 3 5200 #### [facility] [address] [place] [address], [place] RBC (Bld) [#/Vol] 4.20 10*6/uL Normal 4.20-5.70 [facility] Comment on above: Order Comment: No: D o not add to previous draw Performed By: #### 3 5200 #### [facility] [address] [place] [address], [place] WBC (Bld) [#/Vol] 8.82 10*3/uL Normal 4.00-10.60 [facility] Comment on above: Order Comment: No: D o not add to previous draw Performed By: #### 3 5200 #### [facility] [address] [place] [address], [place] HEMOGLOBIN A1Con 04-16-2021 Glucose [Moles/Vol] 180 mmol/L Normal [facility] Comment on above: Order Comment: Yes: Add to Previous draw if able Performed By: #### 8 [id number] #### [facility] [address] [place] [address], [place] HbA1c (Bld) [Mass fraction] 7.9 % High 4.0-6.0 [facility] Comment on above: Order Comment: Yes: Add to Previous draw if able Performed By: #### 8 [id number] #### [facility] [address] [place] [address], [place] MAGNESIUM BLOODon 04-16-2021 Magnesium [Mass/Vol] 2.3 mg/dL Normal 1.9-2.7 [facility] Comment on above: Order Comment: No: D o not add to previous draw Performed By: #### 1 0070, [id number] #### [facility] [address] [place] [address], [place] POC GLUCOSE LABon 04-16-2021 Glucose [Mass/Vol] 357 mg/dL High 70-100 [facility] Comment on above: Performed By: #### 8 [id number] #### [facility] [address] [place] [address], [place] Glucose [Mass/Vol] 149 mg/dL High 70-100 [facility] Comment on above: Performed By: #### 9 9909, 63268, 66641, 26563 #### [facility] [address] [place] [address], [place] Glucose [Mass/Vol] 243 mg/dL High 70-100 [facility] Comment on above: Performed By: #### 8 [id number] #### [facility] [address] [place] [address], [place] Glucose [Mass/Vol] 181 mg/dL High 70-100 [facility] Comment on above: Performed By: #### 9 9909, 17768, 26084, 00355 #### [facility] [address] [place] [address], [place] PROTHROMBIN TIMEon INR Coag (PPP) [Relative time] 1.63 {INR} High 0.91-1.16 [facility] Comment on above: Order Comment: No: D o not add to previous draw Result Comment: ACC P RECOMMENDED INR FOR WARFARIN THERAPY -------- [...] 1995;108:231S-246S. Performed By: #### 3 5200 #### [facility] [address] PT Coag (PPP) [Time] 19.4 s High 12.3-14.8 [facility] Comment on above: Order Comment: No: D o not add to previous draw Result Comment: ALL RESULTS MUST BE INTERPRETED WITH RESPECT TO BLOOD DRAWING ARTIFACT OR DILUTION ERROR OF ANTICOAGULANT AT THE TIME OF SAMPLING. Performed By: #### 3 5200 #### [facility] [address] INR Coag (PPP) [Relative time] 1.66 {INR} High 0.91-1.16 [facility] Comment on above: Order Comment: No: D o not add to previous draw Result Comment: [facility] P RECOMMENDED INR FOR WARFARIN THERAPY [...] 1995;108:231S-246S. Performed By: #### 3 5200 #### [facility] [address] PT Coag (PPP) [Time] 19.7 s High 12.3-14.8 [facility] Comment on above: Order Comment: No: D o not add to previous draw Result Comment: ALL RESULTS MUST BE INTERPRETED WITH RESPECT TO BLOOD DRAWING ARTIFACT OR DILUTION ERROR OF ANTICOAGULANT AT THE TIME OF SAMPLING. Performed By: #### 3 5200 #### [facility] [address] [facility]. [address] BASIC METABOLIC PANELon 05-2 Calcium [Mass/Vol] 9.7 mg/dL Normal 8.6-10.3 [facility] Comment on above: Order Comment: No: D o not add to previous draw Performed By: #### 9 9909, 07577, 59083, 84298 #### [facility] [address] [facility] [place] [place] [address], [facility] Chloride [Moles/Vol] 92 mmol/L Low 98-107 [facility] Comment on above: Order Comment: No: D o not add to previous draw Performed By: #### 9 9909, 96078, 95838, 53527 #### [facility] [address] [place] [address], [facility] CO2 [Moles/Vol] 36 mmol/L High 21-31 [facility] Comment on above: Order Comment: No: D o not add to previous draw Performed By: #### 9 9909, 15584, 07705, 66342 #### [facility] [address] [place] [address], [place] Creatinine [Mass/Vol] 1.86 mg/dL High 0.70-1.30 [facility] Comment on above: Order Comment: No: D o not add to previous draw Performed By: #### 9 9909, 21806, 98240, 87223 #### [facility] [address] [place] [address], [place] eGFR- 44 ml/min/1.73sq m Abnormal >60 [facility] Comment on above: Order Comment: No: D o not add to previous draw Performed By: #### 9 9909, 73054, 71991, 85737 #### [facility] [address] [place] [address], [place] eGFR- non- 37 ml/min/1.73sq m Abnormal >60 [facility] Comment on above: Order Comment: No: D o not add to previous draw Performed By: #### 9 9909, 17551, 37866, 63962 #### [facility] [address] [place] [address], [place] Glucose [Mass/Vol] 167 mg/dL High 70-100 [facility] Comment on above: Order Comment: No: D o not add to previous draw Performed By: #### 9 9909, 91333, 45256, 23381 #### [facility] [address] [place] [address], [place] Potassium [Moles/Vol] 4.0 mmol/L Normal 3.5-5.1 [facility] Comment on above: Order Comment: No: D o not add to previous draw Performed By: #### 9 9909, 67352, 53363, 27784 #### [facility] [address] Sodium [Moles/Vol] 138 mmol/L Normal 136-145 [facility] Comment on above: Order Comment: No: D o not add to previous draw Performed By: #### 9 9909, 40033, 27181, 49401 #### [facility] [address] Urea nitrogen [Mass/Vol] 44 mg/dL High 7-25 [facility] Comment on above: Order Comment: No: D o not add to previous draw Performed By: #### 9 9909, 75872, 10433, 19620 #### [facility] [address] CBC W/DIFFon 04-15-2021 ABS IMM GRANS 0.0 10*3/uL Normal 0.0-0.2 [facility] Comment on above: Order Comment: No: D o not add to previous draw Performed By: #### 3 5200 #### [facility] [address] ABS NEUTROPHILS 6.3 10*3/uL Normal 1.6-7.6 [facility] Comment on above: Order Comment: No: D o not add to previous draw Performed By: #### 3 5200 #### [facility] [address] [place] [address], [facility] Basophils (Bld) [#/Vol] 0.0 10*3/uL Normal 0.0-0.2 [facility] Comment on above: Order Comment: No: D o not add to previous draw Performed By: #### 3 5200 #### [facility] [address] [facility] [place] [address], [facility] Basophils/100 WBC (Bld) 0.3 % Normal 0.0-1.0 [facility] Comment on above: Order Comment: No: D o not add to previous draw Performed By: #### 3 5200 #### [facility] [address] [place] [address], [facility] Eosinophils (Bld) [#/Vol] 0.4 10*3/uL Normal 0.0-0.5 [facility] Comment on above: Order Comment: No: D o not add to previous draw Performed By: #### 3 5200 #### [facility] [address] [place] [address], [facility] Eosinophils/100 WBC (Bld) 4.5 % Normal 0.0-6.0 [facility] Comment on above: Order Comment: No: D o not add to previous draw Performed By: #### 3 5200 #### [facility] [address] [facility] [place] [address], [facility] Erythrocyte distribution width (RBC) [Ratio] 16.3 % High 11.5-15.0 [facility] Comment on above: Order Comment: No: D o not add to previous draw Performed By: #### 3 5200 #### [facility] [address] [facility] [place] [address], [facility] Hematocrit (Bld) [Volume fraction] 37.4 % Low 39.0-50.0 [facility] Comment on above: Order Comment: No: D o not add to previous draw Performed By: #### 3 5200 #### [facility] [address] [facility] [place] [place] [address], [facility] Hemoglobin (Bld) [Mass/Vol] 11.4 g/dL Low 13.0-17.0 [facility] Comment on above: Order Comment: No: D o not add to previous draw Performed By: #### 3 5200 #### [facility] [address] [facility] [address], [facility] IMMATURE GRANS 0.3 % Normal 0.0-1.0 [facility] Comment on above: Order Comment: No: D o not add to previous draw Performed By: #### 3 5200 #### [facility] [address] Lymphocytes (Bld) [#/Vol] 1.8 10*3/uL Normal 1.2-4.0 [facility] Comment on above: Order Comment: No: D o not add to previous draw Performed By: #### 3 5200 #### [facility] [address] [place] [address], [facility] Lymphocytes/100 WBC (Bld) 19.1 % Low 20.0-45.0 [facility] Comment on above: Order Comment: No: D o not add to previous draw Performed By: #### 3 5200 #### [facility] [address] [place] [address], [facility] MCH (RBC) [Entitic mass] 27.2 pg Normal 27.0-33.0 [facility] Comment on above: Order Comment: No: D o not add to previous draw Performed By: #### 3 5200 #### [facility] [address] [place] [address], [facility] MCHC (RBC) [Mass/Vol] 30.5 g/dL Low 32.0-35.0 [facility] Comment on above: Order Comment: No: D o not add to previous draw Performed By: #### 3 5200 #### [facility] [address] [place] [address], [facility] MCV (RBC) [Entitic vol] 89.3 fL Normal 82.0-98.0 [facility] Comment on above: Order Comment: No: D o not add to previous draw Performed By: #### 3 5200 #### [facility] [address] [place] [address], [facility] Monocytes (Bld) [#/Vol] 0.7 10*3/uL Normal 0.1-1.0 [facility] Comment on above: Order Comment: No: D o not add to previous draw Performed By: #### 3 5200 #### [facility] [address] [facility] [place] [place] [address], [facility] MONOS 7.4 % Normal 5.0-12.0 [facility] Comment on above: Order Comment: No: D o not add to previous draw Performed By: #### 3 5200 #### [facility] [address] [place] [address], [facility] Neutrophils/100 WBC (Bld) 68.4 % Normal 40.0-72.0 [facility] Comment on above: Order Comment: No: D o not add to previous draw Performed By: #### 3 5200 #### [facility] [address] [place] [address], [facility] Nucleated RBC/100 WBC (Bld) [Ratio] 0 % Normal 0-0 [facility] Comment on above: Order Comment: No: D o not add to previous draw Performed By: #### 3 5200 #### [facility] [address] [facility] [place] [place] [address], [facility] PLAT CNT 177 10*3/uL Normal 150-400 [facility] Comment on above: Order Comment: No: D o not add to previous draw Performed By: #### 3 5200 #### [facility] [address] [facility] [place] [place] [address], [facility] RBC (Bld) [#/Vol] 4.19 10*6/uL Low 4.20-5.70 [facility] Comment on above: Order Comment: No: D o not add to previous draw Performed By: #### 3 5200 #### [facility] [address] [place] [address], [place] WBC (Bld) [#/Vol] 9.21 10*3/uL Normal 4.00-10.60 [facility] Comment on above: Order Comment: No: D o not add to previous draw Performed By: #### 3 5200 #### [facility] [address] [place] [address], [facility] MAGNESIUM BLOODon 04-15-2021 Magnesium [Mass/Vol] 2.3 mg/dL Normal 1.9-2.7 [facility] Comment on above: Order Comment: No: D o not add to previous draw Performed By: #### 9 9909, 60065, 50528, 78913 #### [facility] [address] [place] [address], [place] POC GLUCOSE LABon 04-15-2021 Glucose [Mass/Vol] 230 mg/dL High 70-100 [facility] Comment on above: Performed By: #### 8 5499 #### [facility] [address] [place] [address], [place] Glucose [Mass/Vol] 260 mg/dL High 70-100 [facility] Comment on above: Performed By: #### 8 5499 #### [facility] [address] [place] [address], [place] Glucose [Mass/Vol] 273 mg/dL High 70-100 [facility] Comment on above: Performed By: #### 9 9909, 32073, 90440, 69832 #### [facility] [address] [place] [address], [place] Glucose [Mass/Vol] 168 mg/dL High 70-100 [facility] Comment on above: Performed By: #### 8 5499 #### [facility] [address] [place] [address], [place] PROTHROMBIN TIMEon INR Coag (PPP) [Relative time] 1.77 {INR} High 0.91-1.16 [facility] Comment on above: Order Comment: No: D [...] 1995;108:231S-246S. Performed By: #### 3 5200 #### [facility] [address] PT Coag (PPP) [Time] 20.7 s High 12.3-14.8 [facility] Comment on above: Order Comment: No: D o not add to previous draw Result Comment: ALL RESULTS MUST BE INTERPRETED WITH RESPECT TO BLOOD DRAWING ARTIFACT OR DILUTION ERROR OF ANTICOAGULANT AT THE TIME OF SAMPLING. Performed By: #### 3 5200 #### [facility] [address] [facility]. [address] INR Coag (PPP) [Relative time] 1.80 {INR} High 0.91-1.16 [facility] Comment on above: Order Comment: Unkno wn [...] 1995;108:231S-246S. Performed By: #### 8 [id number] #### [facility] [address] [place] [id number], [facility] PT Coag (PPP) [Time] 21.0 s High 12.3-14.8 [facility] Comment on above: Order Comment: Unkno wn Result Comment: ALL RESULTS MUST BE INTERPRETED WITH RESPECT TO BLOOD DRAWING ARTIFACT OR DILUTION ERROR OF ANTICOAGULANT AT THE TIME OF SAMPLING. Performed By: #### 8 [id number] #### [facility] [address] [place] [address], [facility] BASIC METABOLIC PANELon 05-2 Calcium [Mass/Vol] 9.4 mg/dL Normal 8.6-10.3 [facility] Comment on above: Order Comment: No: D o not add to previous draw Performed By: #### 8 [id number] #### [facility] [address] [place] [id number], [facility] Chloride [Moles/Vol] 95 mmol/L Low 98-107 [facility] Comment on above: Order Comment: No: D o not add to previous draw Performed By: #### 8 [id number] #### [facility] [address] [place] [id number], [facility] CO2 [Moles/Vol] 35 mmol/L High 21-31 [facility] Comment on above: Order Comment: No: D o not add to previous draw Performed By: #### 8 [id number] #### [facility] [address] [place] [id number], [facility] Creatinine [Mass/Vol] 1.77 mg/dL High 0.70-1.30 [facility] Comment on above: Order Comment: No: D o not add to previous draw Performed By: #### 8 [id number] #### [facility] [address] [place] [address], [place] eGFR- 47 ml/min/1.73sq m Abnormal >60 [facility] Comment on above: Order Comment: No: D o not add to previous draw Performed By: #### 8 5499 #### [facility] [address] [place] [address], [place] eGFR- non- 39 ml/min/1.73sq m Abnormal >60 [facility] Comment on above: Order Comment: No: D o not add to previous draw Performed By: #### 8 [id number] #### [facility] [address] [place] [address], [place] Glucose [Mass/Vol] 135 mg/dL High 70-100 [facility] Comment on above: Order Comment: No: D o not add to previous draw Performed By: #### 8 [id number] #### [facility] [address] [place] [address], [place] Potassium [Moles/Vol] 3.7 mmol/L Normal 3.5-5.1 [facility] Comment on above: Order Comment: No: D o not add to previous draw Performed By: #### 8 [id number] #### [facility] [address] [place] [address], [place] Sodium [Moles/Vol] 140 mmol/L Normal 136-145 [facility] Comment on above: Order Comment: No: D o not add to previous draw Performed By: #### 8 [id number] #### [facility] [address] [place] [address], [place] Urea nitrogen [Mass/Vol] 43 mg/dL High 7-25 [facility] Comment on above: Order Comment: No: D o not add to previous draw Performed By: #### 8 [id number] #### [facility] [address] [place] [address], [place] CBC W/DIFFon 04-14-2021 ABS IMM GRANS 0.0 10*3/uL Normal 0.0-0.2 [facility] Comment on above: Order Comment: No: D o not add to previous draw Performed By: #### 8 [id number] #### [facility] [address] [place] [address], [facility] ABS NEUTROPHILS 6.4 10*3/uL Normal 1.6-7.6 [facility] Comment on above: Order Comment: No: D o not add to previous draw Performed By: #### 8 [id number] #### [facility] [address] [place] [address], [facility] Basophils (Bld) [#/Vol] 0.0 10*3/uL Normal 0.0-0.2 [facility] Comment on above: Order Comment: No: D o not add to previous draw Performed By: #### 8 [id number] #### [facility] [address] [place] [address], [facility] Basophils/100 WBC (Bld) 0.3 % Normal 0.0-1.0 [facility] Comment on above: Order Comment: No: D o not add to previous draw Performed By: #### 8 [id number] #### [facility] [address] [place] [address], [facility] Eosinophils (Bld) [#/Vol] 0.4 10*3/uL Normal 0.0-0.5 [facility] Comment on above: Order Comment: No: D o not add to previous draw Performed By: #### 8 [id number] #### [facility] [address] [place] [address], [facility] Eosinophils/100 WBC (Bld) 4.0 % Normal 0.0-6.0 [facility] Comment on above: Order Comment: No: D o not add to previous draw Performed By: #### 8 [id number] #### [facility] [address] Erythrocyte distribution width (RBC) [Ratio] 16.6 % High 11.5-15.0 [facility] Comment on above: Order Comment: No: D o not add to previous draw Performed By: #### 8 [id number] #### [facility] [address] [place] [address], [facility] Hematocrit (Bld) [Volume fraction] 35.5 % Low 39.0-50.0 [facility] Comment on above: Order Comment: No: D o not add to previous draw Performed By: #### 8 [id number] #### [facility] [address] [facility] [place] [address], [facility] Hemoglobin (Bld) [Mass/Vol] 10.9 g/dL Low 13.0-17.0 [facility] Comment on above: Order Comment: No: D o not add to previous draw Performed By: #### 8 [id number] #### [facility] [address] [facility] [place] [address], [facility] IMMATURE GRANS 0.3 % Normal 0.0-1.0 [facility] Comment on above: Order Comment: No: D o not add to previous draw Performed By: #### 8 [id number] #### [facility] [address] [facility] [place] [address], [facility] Lymphocytes (Bld) [#/Vol] 1.6 10*3/uL Normal 1.2-4.0 [facility] Comment on above: Order Comment: No: D o not add to previous draw Performed By: #### 8 [id number] #### [facility] [address] [place] [address], [facility] Lymphocytes/100 WBC (Bld) 17.3 % Low 20.0-45.0 [facility] Comment on above: Order Comment: No: D o not add to previous draw Performed By: #### 8 [id number] #### [facility] [address] [place] [address], [place] MCH (RBC) [Entitic mass] 27.0 pg Normal 27.0-33.0 [facility] Comment on above: Order Comment: No: D o not add to previous draw Performed By: #### 8 [id number] #### [facility] [address] [place] [address], [facility] MCHC (RBC) [Mass/Vol] 30.7 g/dL Low 32.0-35.0 [facility] Comment on above: Order Comment: No: D o not add to previous draw Performed By: #### 8 [id number] #### [facility] [address] [place] [address], [facility] MCV (RBC) [Entitic vol] 88.1 fL Normal 82.0-98.0 [facility] Comment on above: Order Comment: No: D o not add to previous draw Performed By: #### 8 [id number] #### [facility] [address] [place] [address], [facility] Monocytes (Bld) [#/Vol] 0.7 10*3/uL Normal 0.1-1.0 [facility] Comment on above: Order Comment: No: D o not add to previous draw Performed By: #### 8 [id number] #### [facility] [address] [place] [address], [facility] MONOS 7.6 % Normal 5.0-12.0 [facility] Comment on above: Order Comment: No: D o not add to previous draw Performed By: #### 8 [id number] #### [facility] [address] [place] [address], [facility] Neutrophils/100 WBC (Bld) 70.5 % Normal 40.0-72.0 [facility] Comment on above: Order Comment: No: D o not add to previous draw Performed By: #### 8 [id number] #### [facility] [address] [place] [id number], [facility] Nucleated RBC/100 WBC (Bld) [Ratio] 0 % Normal 0-0 [facility] Comment on above: Order Comment: No: D o not add to previous draw Performed By: #### 8 [id number] #### [facility] [address] [place] [address], [facility] PLAT CNT 157 10*3/uL Normal 150-400 [facility] Comment on above: Order Comment: No: D o not add to previous draw Performed By: #### 8 [id number] #### [facility] [address] [place] [address], [facility] RBC (Bld) [#/Vol] 4.03 10*6/uL Low 4.20-5.70 [facility] Comment on above: Order Comment: No: D o not add to previous draw Performed By: #### 8 [id number] #### [facility] [address] [place] [address], [facility] WBC (Bld) [#/Vol] 9.10 10*3/uL Normal 4.00-10.60 [facility] Comment on above: Order Comment: No: D o not add to previous draw Performed By: #### 8 [id number] #### [facility] [address] [place] [address], [facility] DIGOXINon 04-14-2021 Digoxin [Mass/Vol] 1.0 ng/mL Normal 0.7-2.0 [facility] Comment on above: Order Comment: Yes: Add to Previous draw if able Performed By: #### 8 [id number] #### [facility] [address] [place] [address], [facility] MAGNESIUM BLOODon 04-14-2021 Magnesium [Mass/Vol] 2.2 mg/dL Normal 1.9-2.7 [facility] Comment on above: Order Comment: No: D o not add to previous draw Performed By: #### 8 [id number] #### [facility] [address] [place] [address], [facility] POC GLUCOSE LABon 04-14-2021 Glucose [Mass/Vol] 194 mg/dL High 70-100 [facility] Comment on above: Performed By: #### 8 [id number] #### [facility] [address] [place] [address], [facility] Glucose [Mass/Vol] 188 mg/dL High 70-100 [facility] Comment on above: Performed By: #### 9 9909, 16181, 54637, 58451 #### [facility] [address] [place] [address], [facility] Glucose [Mass/Vol] 130 mg/dL High 70-100 [facility] Comment on above: Performed By: #### 9 9909, 73163, 46124, 00188 #### [facility] [address] [place] [address], [facility] PROTHROMBIN TIMEon INR Coag (PPP) [Relative time] 1.92 {INR} High 0.91-1.16 [facility] Comment on above: Order Comment: No: D [...] CHEST 1995;108:231S-246S. Performed By: #### 9 9909, 70529, 26391, 11761 #### [facility] [address] [place] [address], [place] PT Coag (PPP) [Time] 22.1 s High 12.3-14.8 [facility] Comment on above: Order Comment: No: D o not add to previous draw Result Comment: ALL RESULTS MUST BE INTERPRETED WITH RESPECT TO BLOOD DRAWING ARTIFACT OR DILUTION ERROR OF ANTICOAGULANT AT THE TIME OF SAMPLING. Performed By: #### 9 9909, 23438, 61178, 02814 #### [facility] [address] [place] [address], [place] INR Coag (PPP) [Relative time] 1.83 {INR} High 0.91-1.16 [facility] Comment on above: Order Comment: No: D [...] 1995;108:231S-246S. Performed By: #### 3 5200 #### [facility] [address] [place] [address], [place] PT Coag (PPP) [Time] 21.2 s High 12.3-14.8 [facility] Comment on above: Order Comment: No: D o not add to previous draw Result Comment: ALL RESULTS MUST BE INTERPRETED WITH RESPECT TO BLOOD DRAWING ARTIFACT OR DILUTION ERROR OF ANTICOAGULANT AT THE TIME OF SAMPLING. Performed By: #### 3 5200 #### [facility] [address] [place] [address], [place] BASIC METABOLIC PANELon 05-2 -2020 Calcium [Mass/Vol] 8.5 mg/dL Low 8.6-10.3 [facility] Comment on above: Order Comment: No: D o not add to previous draw Performed By: #### 9 9909, 31091, 55969, 20284 #### [facility] [address] [place] [address], [place] Chloride [Moles/Vol] 98 mmol/L Normal 98-107 [facility] Comment on above: Order Comment: No: D o not add to previous draw Performed By: #### 9 9909, 30645, 81710, 73509 #### [facility] [address] [place] [address], [place] CO2 [Moles/Vol] 32 mmol/L High 21-31 [facility] Comment on above: Order Comment: No: D o not add to previous draw Performed By: #### 9 9909, 59955, 46773, 59357 #### [facility] [address] [place] [address], [place] Creatinine [Mass/Vol] 1.77 mg/dL High 0.70-1.30 [facility] Comment on above: Order Comment: No: D o not add to previous draw Performed By: #### 9 9909, 25697, 76398, 62852 #### [facility] [address] [place] [address], [place] eGFR- 47 ml/min/1.73sq m Abnormal >60 [facility] Comment on above: Order Comment: No: D o not add to previous draw Performed By: #### 9 9909, 22186, 02342, 67563 #### [facility] [address] [place] [address], [facility] eGFR- non- 39 ml/min/1.73sq m Abnormal >60 [facility] Comment on above: Order Comment: No: D o not add to previous draw Performed By: #### 9 9909, 83860, 46199, 77536 #### [facility] [address] [place] [address], [place] Glucose [Mass/Vol] 129 mg/dL High 70-100 [facility] Comment on above: Order Comment: No: D o not add to previous draw Performed By: #### 9 9909, 34984, 38917, 20647 #### [facility] [address] [place] [address], [place] Potassium [Moles/Vol] 3.8 mmol/L Normal 3.5-5.1 [facility] Comment on above: Order Comment: No: D o not add to previous draw Performed By: #### 9 9909, 11639, 57779, 59503 #### [facility] [address] [place] [address], [place] Sodium [Moles/Vol] 138 mmol/L Normal 136-145 [facility] Comment on above: Order Comment: No: D o not add to previous draw Performed By: #### 9 9909, 41192, 89466, 85546 #### [facility] [address] [place] [address], [place] Urea nitrogen [Mass/Vol] 39 mg/dL High 7-25 [facility] Comment on above: Order Comment: No: D o not add to previous draw Performed By: #### 9 9909, 17217, 79732, 38753 #### [facility] [address] [place] [address], [place] CBC COMPLETE BLOOD COUNTon 0 - Erythrocyte distribution width (RBC) [Ratio] 16.8 % High 11.5-15.0 [facility] Comment on above: Order Comment: No: D o not add to previous draw Performed By: #### 8 [id number] #### [facility] [address] [place] [address], [facility] Hematocrit (Bld) [Volume fraction] 33.7 % Low 39.0-50.0 [facility] Comment on above: Order Comment: No: D o not add to previous draw Performed By: #### 8 [id number] #### [facility] [address] [place] [address], [facility] Hemoglobin (Bld) [Mass/Vol] 10.2 g/dL Low 13.0-17.0 [facility] Comment on above: Order Comment: No: D o not add to previous draw Performed By: #### 8 [id number] #### [facility] [address] [place] [address], [facility] MCH (RBC) [Entitic mass] 27.1 pg Normal 27.0-33.0 [facility] Comment on above: Order Comment: No: D o not add to previous draw Performed By: #### 8 [id number] #### [facility] [address] [place] [address], [facility] MCHC (RBC) [Mass/Vol] 30.3 g/dL Low 32.0-35.0 [facility] Comment on above: Order Comment: No: D o not add to previous draw Performed By: #### 8 [id number] #### [facility] [address] [place] [address], [facility] MCV (RBC) [Entitic vol] 89.6 fL Normal 82.0-98.0 [facility] Comment on above: Order Comment: No: D o not add to previous draw Performed By: #### 8 [id number] #### [facility] [address] [place] [address], [facility] Nucleated RBC/100 WBC (Bld) [Ratio] 0 % Normal 0-0 [facility] Comment on above: Order Comment: No: D o not add to previous draw Performed By: #### 8 [id number] #### [facility] [address] [place] [address], [place] PLAT CNT 131 10*3/uL Low 150-400 [facility] Comment on above: Order Comment: No: D o not add to previous draw Performed By: #### 8 [id number] #### [facility] [address] [place] [address], [place] RBC (Bld) [#/Vol] 3.76 10*6/uL Low 4.20-5.70 [facility] Comment on above: Order Comment: No: D o not add to previous draw Performed By: #### 8 [id number] #### [facility] [address] [place] [address], [place] WBC (Bld) [#/Vol] 11.41 10*3/uL High 4.00-10.60 [facility] Comment on above: Order Comment: No: D o not add to previous draw Performed By: #### 8 5499 #### [facility] [address] [place] [address], [place] MAGNESIUM BLOODon 04-13-2021 Magnesium [Mass/Vol] 2.3 mg/dL Normal 1.9-2.7 [facility] Comment on above: Order Comment: No: D o not add to previous draw Performed By: #### 9 9909, 19531, 91470, 56335 #### [facility] [address] [place] [address], [place] POC GLUCOSE LABon 04-13-2021 Glucose [Mass/Vol] 210 mg/dL High 70-100 [facility] Comment on above: Performed By: #### 8 5499 #### [facility] [address] [place] [address], [place] Glucose [Mass/Vol] 90 mg/dL Normal 70-100 [facility] Comment on above: Performed By: #### 9 9909, 91269, 93584, 12410 #### [facility] [address] [place] [address], [place] Glucose [Mass/Vol] 104 mg/dL High 70-100 [facility] Comment on above: Performed By: #### 8 5499 #### [facility] [address] [place] [address], [facility] Glucose [Mass/Vol] 77 mg/dL Normal 70-100 [facility] Comment on above: Performed By: #### 9 9909, 61975, 78331, 40744 #### [facility] [address] [place] [address], [place] Glucose [Mass/Vol] 113 mg/dL High 70-100 [facility] Comment on above: Performed By: #### 9 9909, 87516, 17966, 84817 #### [facility] [address] [place] [address], [facility] PROTHROMBIN TIMEon 1 INR Coag (PPP) [Relative time] 2.19 {INR} High 0.91-1.16 [facility] Comment on above: Order Comment: No: D [...] 1995;108:231S-246S. Performed By: #### 3 5200 #### [address] PT Coag (PPP) [Time] 24.5 s High 12.3-14.8 [facility] Comment on above: Order Comment: No: D o not add to previous draw Result Comment: ALL RESULTS MUST BE INTERPRETED WITH RESPECT TO BLOOD DRAWING ARTIFACT OR DILUTION ERROR OF ANTICOAGULANT AT THE TIME OF SAMPLING. Performed By: #### 3 5200 #### [address] TROPONIN-Ion 04-13-2021 Troponin I.cardiac [Mass/Vol] 0.05 ng/mL High 0.00-0.04 [facility] Comment on above: Order Comment: No: D o not add to previous draw Result Comment: REFE RENCE RANGES: 0.00 - 0.04 ng/ml NORMAL 0.05 - 0.50 ng/ml INDETERMINATE > 0.50 ng/ml CONSISTENT WITH AN M.I. Performed By: #### 3 5200 #### [address] US ABDOMEN LIMITED FOR ASCIT ESon 04-13-2021 US ABDOMEN LIMITED FOR ASCITES [facility] Department of Radiology [address] [place] [id number] Patient Name: ADWOA PORTER : 1955 Sex: M Age: Race: White Pt. Location: [address] [place] [address] Patient Status: I Ordered Date: 04/13/2021 3:45:00 [...] reports Electronically signed: Shannon Weathers. Transcribed by: [email or web address], User Resident: BIANCA NICOLE Electronically Signed by: SHANNON WEATHERS @ 04/13/2021 04:07 PM I personally read this/these film(s) with this resident Normal [facility] Comment on above: Order Comment: No: D o not add to previous draw *BLOOD CULTUREon 04-12-2021 *BLOOD CULTURE Clinical Report: (D) Specimen: BLOOD CULTURE Collected: 04/12/2021 20:24 Status: Final Last Updated: 04/18/2021 07:10 (1) Right AC 2018 CULT RES (Final) No Growth Day 5 Normal [facility] Comment on above: Order Comment: Right AC 2018 Performed By: #### 8 [id number] #### [facility] [address] *BLOOD CULTURE Clinical Report: (D) Specimen: BLOOD CULTURE Collected: 04/12/2021 20:24 Status: Final Last Updated: 04/18/2021 07:10 (1) Left AC 2021 CULT RES (Final) No Growth Day 5 Normal [facility] Comment on above: Order Comment: Left AC 2021 Performed By: #### 8 [id number] #### [facility] [address] BNP (B-TYPE NATRIURETIC PEPT JJ)on 04-12-2021 Natriuretic peptide B (Bld) [Mass/Vol] 502 pg/mL High 0-100 [facility] Comment on above: Order Comment: No: D o not add to previous draw Result Comment: Give n the appropriate clinical setting a BNP result of >100 pg/mL indicates congestive heart failure. Performed By: #### 9 9909, 00860, 85463, 43584 #### [facility] [address] CBC W/DIFFon 04-12-2021 ABS IMM GRANS 0.1 10*3/uL Normal 0.0-0.2 [facility] Comment on above: Performed By: #### 8 [id number] #### [facility] [address] ABS NEUTROPHILS 10.5 10*3/uL High 1.6-7.6 [facility] Comment on above: Performed By: #### 8 5499 #### [facility] [address] [place] [address], [facility] Basophils (Bld) [#/Vol] 0.0 10*3/uL Normal 0.0-0.2 [facility] Comment on above: Performed By: #### 8 5499 #### [facility] [address] Basophils/100 WBC (Bld) 0.2 % Normal 0.0-1.0 [facility] Comment on above: Performed By: #### 8 [id number] #### [facility] [address] [place] [address], [facility] Eosinophils (Bld) [#/Vol] 0.3 10*3/uL Normal 0.0-0.5 [facility] Comment on above: Performed By: #### 8 [id number] #### [facility] [address] [place] [address], [facility] Eosinophils/100 WBC (Bld) 2.1 % Normal 0.0-6.0 [facility] Comment on above: Performed By: #### 8 [id number] #### [facility] [address] Erythrocyte distribution width (RBC) [Ratio] 17.1 % High 11.5-15.0 [facility] Comment on above: Performed By: #### 8 [id number] #### [facility] [address] Hematocrit (Bld) [Volume fraction] 34.8 % Low 39.0-50.0 [facility] Comment on above: Performed By: #### 8 5499 #### [facility] [address] Hemoglobin (Bld) [Mass/Vol] 10.6 g/dL Low 13.0-17.0 [facility] Comment on above: Performed By: #### 8 5499 #### [facility] [address] IMMATURE GRANS 0.4 % Normal 0.0-1.0 [facility] Comment on above: Performed By: #### 8 5499 #### [facility] [address] Lymphocytes (Bld) [#/Vol] 1.4 10*3/uL Normal 1.2-4.0 [facility] Comment on above: Performed By: #### 8 5499 #### [facility] [address] Lymphocytes/100 WBC (Bld) 10.5 % Low 20.0-45.0 [facility] Comment on above: Performed By: #### 8 [id number] #### [facility] [address] MCH (RBC) [Entitic mass] 27.3 pg Normal 27.0-33.0 [facility] Comment on above: Performed By: #### 8 [id number] #### [facility] [address] [facility] [address] MCHC (RBC) [Mass/Vol] 30.5 g/dL Low 32.0-35.0 [facility] Comment on above: Performed By: #### 8 5499 #### [facility] [address] [facility] [place] [place] [address], [facility] MCV (RBC) [Entitic vol] 89.7 fL Normal 82.0-98.0 [facility] Comment on above: Performed By: #### 8 [id number] #### [facility] [address] [facility]. [address] Monocytes (Bld) [#/Vol] 0.8 10*3/uL Normal 0.1-1.0 [facility] Comment on above: Performed By: #### 8 [id number] #### [facility] [address] MONOS 6.4 % Normal 5.0-12.0 [facility] Comment on above: Performed By: #### 8 [id number] #### [facility] [address] [facility] [address] Neutrophils/100 WBC (Bld) 80.4 % High 40.0-72.0 [facility] Comment on above: Performed By: #### 8 [id number] #### [facility] [address] [facility] [place] [address], [facility] Nucleated RBC/100 WBC (Bld) [Ratio] 0 % Normal 0-0 [facility] Comment on above: Performed By: #### 8 [id number] #### [facility] [address] [facility] [place] [address], [facility] PLAT CNT 138 10*3/uL Low 150-400 [facility] Comment on above: Performed By: #### 8 [id number] #### [facility] [address] [place] [address], [facility] RBC (Bld) [#/Vol] 3.88 10*6/uL Low 4.20-5.70 [facility] Comment on above: Performed By: #### 8 [id number] #### [facility] [address] [place] [address], [facility] WBC (Bld) [#/Vol] 13.05 10*3/uL High 4.00-10.60 [facility] Comment on above: Performed By: #### 8 [id number] #### [facility] [address] [facility] [place] [address], [facility] LIVER BATTERYon 04-12-2021 Albumin [Mass/Vol] 3.8 g/dL Normal 3.5-5.7 [facility] Comment on above: Order Comment: No: D o not add to previous draw Performed By: #### 9 9909, 27245, 92298, 92173 #### [facility] [address] [facility] [place] [address], [facility] ALKALINE PHOSPH 80 IU/L Normal 34-104 [facility] Comment on above: Order Comment: No: D o not add to previous draw Performed By: #### 9 9909, 83050, 48703, 35542 #### [facility] [address] [place] [address], [facility] ALT [Catalytic activity/Vol] 10 U/L Normal 7-52 [facility] Comment on above: Order Comment: No: D o not add to previous draw Performed By: #### 9 9909, 39626, 96242, 80750 #### [facility] [address] [place] [address], [place] AST [Catalytic activity/Vol] 15 U/L Normal 13-39 [facility] Comment on above: Order Comment: No: D o not add to previous draw Performed By: #### 9 9909, 86031, 17693, 03391 #### [facility] [address] [place] [address], [place] Bilirubin [Mass/Vol] 1.0 mg/dL Normal 0.3-1.0 [facility] Comment on above: Order Comment: No: D o not add to previous draw Performed By: #### 9 9909, 38351, 86977, 36128 #### [facility] [address] [place] [address], [place] Bilirubin.direct [Mass/Vol] 0.5 mg/dL High 0.0-0.2 [facility] Comment on above: Order Comment: No: D o not add to previous draw Performed By: #### 9 9909, 69045, 78421, 34531 #### [facility] [address] [place] [address], [place] Protein [Mass/Vol] 7.2 g/dL Normal 6.0-8.3 [facility] Comment on above: Order Comment: No: D o not add to previous draw Performed By: #### 9 9909, 60969, 85016, 56115 #### [facility] [address] [place] [address], [place] MAGNESIUM BLOODon 04-12-2021 Magnesium [Mass/Vol] 2.5 mg/dL Normal 1.9-2.7 [facility] Comment on above: Order Comment: No: D o not add to previous draw Performed By: #### 9 9909, 40983, 80174, 20939 #### [facility] [address] [place] [address], [place] PHOSPHORUS BLOODon Phosphate [Mass/Vol] 3.7 mg/dL Normal 2.5-5.0 [facility] Comment on above: Order Comment: No: D o not add to previous draw Performed By: #### 9 9909, 67315, 98714, 88873 #### [facility] [address] [facility] [place] [address], [facility] POC GLUCOSE LABon 04-12-2021 Glucose [Mass/Vol] 190 mg/dL High 70-100 [facility] Comment on above: Performed By: #### 8 [id number] #### [facility] [address] [facility] [place] [address], [facility] Glucose [Mass/Vol] 117 mg/dL High 70-100 [facility] Comment on above: Performed By: #### 8 [id number] #### [facility] [address] [facility] [place] [address], [facility] PORTABLE CHEST 1 VIEWon 03-20 PORTABLE CHEST 1 VIEW [facility] Department of Radiology [address] [place] [id number] Patient Name: ADWOA PORTER : 1955 Sex: M Age: Race: White Pt. Location: [address] [place] [address] Patient Status: I Ordered Date: 04/12/2021 4:55:00 [...] edema. Electronically signed: Michaelle Villalba. Transcribed by: [email or web address], User Resident: Electronically Signed by: MICHAELLE VILLALBA @ 04/12/2021 05:27 PM Normal [facility] Comment on above: Order Comment: evalu ate for Pulmonary Edema PROTHROMBIN TIMEon INR Coag (PPP) [Relative time] 2.58 {INR} High 0.91-1.16 [facility] Comment on above: Order Comment: No: D [...] 1995;108:231S-246S. Performed By: #### 3 5200 #### [place] [address] [address] PT Coag (PPP) [Time] 27.9 s High 12.3-14.8 [facility] Comment on above: Order Comment: No: D o not add to previous draw Result Comment: ALL RESULTS MUST BE INTERPRETED WITH RESPECT TO BLOOD DRAWING ARTIFACT OR DILUTION ERROR OF ANTICOAGULANT AT THE TIME OF SAMPLING. Performed By: #### 3 5200 #### [facility] [address] [facility]. [address] TROPONIN-Ion 04-12-2021 Troponin I.cardiac [Mass/Vol] 0.05 ng/mL High 0.00-0.04 [facility] Comment on above: Order Comment: No: D o not add to previous draw Result Comment: REFE RENCE RANGES: 0.00 - 0.04 ng/ml NORMAL 0.05 - 0.50 ng/ml INDETERMINATE > 0.50 ng/ml CONSISTENT WITH AN M.I. Performed By: #### 9 9909, 40946, 30454, 50617 #### [facility] [address] Provider Letteron 11-16-2020 Provider Letter (Inserted Image. Radha ble to display) November 16, 2020 ADWOA PORTER [address] [place] [id number] ADWOA PORTER 1955 Dear Adwoa, You missed [...] appreciate your understanding. Sincerely, [facility] [address] [facility], [place] [address] [facility] Coding Summary.on 04-05-2020 Coding Summary. CODING DATE: 020 FINAL [facility] STATUS: Home (Routine DC) PAYOR: Medicare ADMIT [...] CphT Date Saved: 04/05/2020 10:26 am Normal [facility] Aerobic cultureon 12-04-2019 Aerobic Culture Staphylococcus aureus [facility] Aerobic Culture Klebsiella oxytoca F [facility] Transfusion reaction panel ( ABO, Rh)on 12-04-2019 Microscopic observation Gram stain Nom (Unsp spec) [facility] Vital Signs Date Time Vital Sign Value Performing Clinician Facility 11-22-2023 15:15-0500 Body height 170.18 cm Vinnie Stewart Other [facility] 11-22-2023 15:15-0500 Body mass index (BMI) [Ratio] 29.6 kg/m2 Vinnie Stewart Other [facility] [employer] Other 11-22-2023 15:15-0500 Body temperature 97.9 [degF] Vinnie Stewart Other [facility] [employer] Other 11-22-2023 15:15-0500 Body weight 85.73 kg Vinnie Stewart Other [facility] [employer] Other 11-22-2023 15:15-0500 Body weight 85.72 kg DO Vinnie Stewart Work Phone: [facility] 11-22-2023 15:15-0500 Diastolic blood pressure 60 mm[Hg] Vinnie Stewart Other [facility] 11-22-2023 15:15-0500 Respiratory rate 18 /min Vinnie Stewart Other [facility] [employer] Other 11-22-2023 15:15-0500 SaO2% (BldA) [Mass fraction] 98 % Vinnie Stewart Other [facility] Other 11-22-2023 15:15-0500 Systolic blood pressure 122 mm[Hg] Vinnie Stewart Other [facility] 11-15-2023 13:40-0500 Body height 170.18 cm Simba Jac Other [facility] 11-15-2023 13:40-0500 Body mass index (BMI) [Ratio] 28.94 kg/m2 Simba Jac Other [facility] Other 11-15-2023 13:40-0500 Body temperature 96.4 [degF] Simba Jac Other [facility] Other 11-15-2023 13:40-0500 Body weight 83.83 kg Simba Jac Other [facility] Other 11-15-2023 13:40-0500 Body weight 83.82 kg DO Vinnie Stewart Work Phone: [facility] 11-15-2023 13:40-0500 Diastolic blood pressure 62 mm[Hg] Simba Jac Other [facility] 11-15-2023 13:40-0500 Respiratory rate 18 /min Simba Jac Other [facility] Other 11-15-2023 13:40-0500 SaO2% (BldA) [Mass fraction] 92 % Simba Jac Other [facility] [employer] Other 11-15-2023 13:40-0500 Systolic blood pressure 110 mm[Hg] Simba Jac Other [facility] 11-13-2023 13:30-0500 Body height 170.18 cm Brittnee Scally Other [facility] 11-13-2023 13:30-0500 Body mass index (BMI) [Ratio] 28.94 kg/m2 Brittnee Scally Other [facility] [employer] Other 11-13-2023 13:30-0500 Body weight 83.83 kg Brittnee Scally Other [facility] [employer] Other 11-13-2023 13:30-0500 Body weight 83.82 kg DO Vinnie Stewart Work Phone: [facility] 11-13-2023 13:30-0500 Diastolic blood pressure 63 mm[Hg] Brittnee Scally Other [facility] 11-13-2023 13:30-0500 Respiratory rate 18 /min Brittnee Scally Other [facility] Other 11-13-2023 13:30-0500 SaO2% (BldA) [Mass fraction] 95 % Brittnee Scally Other [facility] [employer] Other 11-13-2023 13:30-0500 Systolic blood pressure 107 mm[Hg] Brittnee Scally Other [facility] 10-08-2023 10:00-0500 Body height 170.18 cm Brittnee Scally Other [facility] 10-08-2023 10:00-0500 Body mass index (BMI) [Ratio] 30.57 kg/m2 Brittnee Scally Other [facility] Other 10-08-2023 10:00-0500 Body weight 88.54 kg Brittnee Scally Other [facility] 09-18-2023 15:00-0400 Body height 170.18 cm Brittnee Scally Other [facility] Other 09-18-2023 15:00-0400 Diastolic blood pressure 72 mm[Hg] Brittnee Scally Other [facility] Other 09-18-2023 15:00-0400 Respiratory rate 18 /min Brittnee Scally Other [facility] Other 09-18-2023 15:00-0400 SaO2% (BldA) [Mass fraction] 96 % Brittnee Scally Other [facility] Other 09-18-2023 15:00-0400 Systolic blood pressure 115 mm[Hg] Brittnee Scally Other [facility] Other 06-29-2023 10:30-0400 Body height 170.18 cm Vinnie Stewart Other [facility] Other 06-29-2023 10:30-0400 Body mass index (BMI) [Ratio] 31.99 kg/m2 Vinnie Stewart Other [facility] Other 06-29-2023 10:30-0400 Body weight 92.67 kg Vinnie Stewart Other [facility] Other 06-29-2023 10:30-0400 Diastolic blood pressure 72 mm[Hg] Vinnie Stewart Other [facility] Other 06-29-2023 10:30-0400 Respiratory rate 18 /min Vinnie Stewart Other [facility] Other 06-29-2023 10:30-0400 SaO2% (BldA) [Mass fraction] 95 % Vinnie Stewart Other [facility] Other 06-29-2023 10:30-0400 Systolic blood pressure 124 mm[Hg] Vinnie Stewart Other [facility] Other 06-29-2023 08:15-0400 Body height 170.18 cm Brittnee Scally Other [facility] Other 06-29-2023 08:15-0400 Diastolic blood pressure 62 mm[Hg] Brittnee Scally Other [facility] Other 06-29-2023 08:15-0400 Respiratory rate 18 /min Brittnee Scally Other [facility] Other 06-29-2023 08:15-0400 SaO2% (BldA) [Mass fraction] 94 % Brittnee Scally Other [facility] Other 06-29-2023 08:15-0400 Systolic blood pressure 104 mm[Hg] Brittnee Scally Other [facility] Other 06-18-2023 11:30-0400 Body height 170.18 cm Vinnie Stewart Other [facility] Other 06-18-2023 11:30-0400 Body mass index (BMI) [Ratio] 32.89 kg/m2 Vinnie Stewart Other [facility] Other 06-18-2023 11:30-0400 Body temperature 97.5 [degF] Vinnie Stewart Other [facility] Other 06-18-2023 11:30-0400 Body weight 95.26 kg Vinnie Stewart Other [facility] Other 06-18-2023 11:30-0400 Diastolic blood pressure 72 mm[Hg] Vinnie Stewart Other [facility] Other 06-18-2023 11:30-0400 Respiratory rate 18 /min Vinnie Stewart Other [facility] Other 06-18-2023 11:30-0400 SaO2% (BldA) [Mass fraction] 94 % Vinnie Stewart Other [facility] Other 06-18-2023 11:30-0400 Systolic blood pressure 126 mm[Hg] Vinnie Stewart Other [facility] Other 04-19-2023 11:20-0400 Body height 170.18 cm Simba Jac Other [facility] Other 04-19-2023 11:20-0400 Body mass index (BMI) [Ratio] 32.76 kg/m2 Simba Jac Other [facility] Other 04-19-2023 11:20-0400 Body temperature 97.6 [degF] Simba Jac Other [facility] Other 06-01-2023 11:20-0400 Body weight 94.89 kg Simba Jac Other [facility] Other 04-19-2023 11:20-0400 Diastolic blood pressure 60 mm[Hg] Simba Jac Other [facility] Other 04-19-2023 11:20-0400 Respiratory rate 18 /min Simba Jac Other [facility] Other 04-19-2023 11:20-0400 SaO2% (BldA) [Mass fraction] 98 % Simba Jac Other [facility] Other 04-19-2023 11:20-0400 Systolic blood pressure 120 mm[Hg] Simba Jac Other [facility] Other 03-21-2023 14:00-0400 Body height 170.18 cm Vinnie Stewart Other [facility] Other 03-21-2023 14:00-0400 Body mass index (BMI) [Ratio] 32.42 kg/m2 Vinnie Stewart Other [facility] Other 03-21-2023 14:00-0400 Body weight 93.9 kg Vinnie Stewart Other [facility] Other 03-21-2023 14:00-0400 Diastolic blood pressure 86 mm[Hg] Vinnie Stewart Other [facility] Other 03-21-2023 14:00-0400 Respiratory rate 18 /min Vinnie Stewart Other [facility] Other 03-21-2023 14:00-0400 SaO2% (BldA) [Mass fraction] 94 % Vinnie Stewart Other [facility] Other 03-21-2023 14:00-0400 Systolic blood pressure 132 mm[Hg] Vinnie Stewart Other [facility] Other 02-21-2023 15:45-0400 Body height 170.18 cm Vinnie Stewart Other [facility] Other 02-21-2023 15:45-0400 Body mass index (BMI) [Ratio] 32.57 kg/m2 Vinnie Stewart Other [facility] Other 02-21-2023 15:45-0400 Body weight 94.35 kg Vinnie Stewart Other [facility] Other 02-21-2023 15:45-0400 Diastolic blood pressure 76 mm[Hg] Vinnie Stewart Other [facility] Other 02-21-2023 15:45-0400 Respiratory rate 18 /min Vinnie Stewart Other [facility] Other 02-21-2023 15:45-0400 SaO2% (BldA) [Mass fraction] 97 % Vinnie Stewart Other [facility] Other 02-21-2023 15:45-0400 Systolic blood pressure 134 mm[Hg] Vinnie Stewart Other [facility] Other 02-14-2023 15:48-0400 Body temperature 97.5 [degF] DO Vinnie Stewart Work Phone: [facility] 02-14-2023 15:48-0400 Diastolic blood pressure 80 mm[Hg] DO Vinnie Stewart Work Phone: [facility] 02-14-2023 15:48-0400 Heart rate 86 /min DO Vinnie Stewart Work Phone: [facility] 02-14-2023 15:48-0400 Respiratory rate 16 /min DO Vinnie Stewart Work Phone: [facility] 02-14-2023 15:48-0400 SaO2% (BldA) [Mass fraction] 98 % DO Vinnie Stewart Work Phone: [facility] 02-14-2023 15:48-0400 Systolic blood pressure 137 mm[Hg] DO Vinnie Stewart Work Phone: [facility] 02-14-2023 14:01-0400 Body height 175.26 cm DO Vinnie Stewart Work Phone: [facility] 02-14-2023 06:00-0400 Body weight 97 kg DO Vinnie Stewart Work Phone: [facility] 02-13-2023 20:36-0400 Diastolic blood pressure 79 mm[Hg] DO Vinnie Stewart Work Phone: [facility] 02-13-2023 20:36-0400 Heart rate 86 /min DO Vinnie Stewart Work Phone: [facility] 02-13-2023 20:36-0400 Respiratory rate 16 /min DO Vinnie Stewart Work Phone: [facility] 02-13-2023 20:36-0400 SaO2% (BldA) [Mass fraction] 94 % DO Vinnie Stewart Work Phone: [facility] 02-13-2023 20:36-0400 Systolic blood pressure 146 mm[Hg] DO Vinnie Stewart Work Phone: [facility] 02-13-2023 15:38-0400 Body height 175.26 cm DO Vinnie Stewart Work Phone: [facility] 02-13-2023 15:38-0400 Body temperature 97.8 [degF] DO Vinnie Stewart Work Phone: [facility] 02-13-2023 15:38-0400 Body weight 96.16 kg DO Vinnie Stewart Work Phone: [facility] 02-09-2023 12:45-0400 Body height 170.18 cm Vinnie Stewart Other [facility] [employer] Other 02-09-2023 12:45-0400 Body mass index (BMI) [Ratio] 33.2 kg/m2 Vinnie Stewart Other [facility] Other 02-09-2023 12:45-0400 Body weight 96.16 kg Vinnie Stewart Other [facility] Other 02-09-2023 12:45-0400 Diastolic blood pressure 82 mm[Hg] Vinnie Stewart Other [facility] Other 02-09-2023 12:45-0400 Respiratory rate 18 /min Vinnie Stewart Other [facility] Other 02-09-2023 12:45-0400 SaO2% (BldA) [Mass fraction] 94 % Vinnie Stewart Other [facility] Other 02-09-2023 12:45-0400 Systolic blood pressure 128 mm[Hg] Vinnie Stewart Other [facility] Other 01-17-2023 15:30-0500 Body height 170.18 cm Vinnie Stewart Other [facility] Other 01-17-2023 15:30-0500 Body mass index (BMI) [Ratio] 36.02 kg/m2 Vinnie Stewart Other [facility] Other 01-17-2023 15:30-0500 Body weight 104.33 kg Vinnie Stewart Other [facility] Other 01-17-2023 15:30-0500 Diastolic blood pressure 82 mm[Hg] Vinnie Stewart Other [facility] Other 01-17-2023 15:30-0500 Respiratory rate 18 /min Vinnie Stewart Other [facility] Other 01-17-2023 15:30-0500 SaO2% (BldA) [Mass fraction] 94 % Vinnie Stewart Other [facility] Other 01-17-2023 15:30-0500 Systolic blood pressure 134 mm[Hg] Vinnie Stewart Other [facility] Other 12-04-2022 13:06-0500 Body height 175.26 cm DO Vinnie Stewart Work Phone: [facility] 12-04-2022 13:06-0500 Body weight 100.8 kg DO Vinnie Stewart Work Phone: [facility] 12-04-2022 13:06-0500 Diastolic blood pressure 84 mm[Hg] DO Vinnie Stewart Work Phone: [facility] 12-04-2022 13:06-0500 Heart rate 86 /min DO Vinnie Stewart Work Phone: [facility] 12-04-2022 13:06-0500 Respiratory rate 20 /min DO Vinnie Stewart Work Phone: [facility] 12-04-2022 13:06-0500 SaO2% (BldA) [Mass fraction] 96 % DO Vinnie Stewart Work Phone: [facility] 12-04-2022 13:06-0500 Systolic blood pressure 129 mm[Hg] DO Vinnie Stewart Work Phone: [facility] 11-07-2022 14:45-0500 Body height 170.18 cm Brittnee Scally Other [facility] Other 11-07-2022 14:45-0500 Body mass index (BMI) [Ratio] 39.7 kg/m2 Brittnee Scally Other [facility] Other 11-07-2022 14:45-0500 Body weight 114.99 kg Brittnee Scally Other [facility] Other 11-07-2022 14:45-0500 Diastolic blood pressure 68 mm[Hg] Brittnee Scally Other [facility] Other 11-07-2022 14:45-0500 Respiratory rate 20 /min Brittnee Scally Other [facility] Other 11-07-2022 14:45-0500 SaO2% (BldA) [Mass fraction] Brittnee Scally Other [facility] Other 11-07-2022 14:45-0500 Systolic blood pressure 108 mm[Hg] Brittnee Scally Other [facility] Other 09-28-2022 13:00-0500 Diastolic blood pressure 67 mm[Hg] Gisselle Dickey Other [facility] Other 09-28-2022 13:00-0500 Respiratory rate 18 /min Gisselle Dickey Other [facility] Other 09-28-2022 13:00-0500 SaO2% (BldA) [Mass fraction] 92 % Gisselle Dickey Other [facility] Other 09-28-2022 13:00-0500 Systolic blood pressure 123 mm[Hg] Gisselle Dickey Other [facility] Other 09-28-2022 12:40-0500 Body height 170.18 cm Simba Jac Other [facility] Other 09-28-2022 12:40-0500 Body mass index (BMI) [Ratio] 37.93 kg/m2 Simba Jac Other [facility] Other 09-28-2022 12:40-0500 Body temperature 96.2 [degF] Simba Jac Other [facility] Other 09-28-2022 12:40-0500 Body weight 109.86 kg Simba Jac Other [facility] Other 09-28-2022 12:40-0500 Diastolic blood pressure 81 mm[Hg] Simba Jac Other [facility] Other 09-28-2022 12:40-0500 Respiratory rate 20 /min Simba Jac Other [facility] Other 09-28-2022 12:40-0500 SaO2% (BldA) [Mass fraction] 90 % Simba Jac Other [facility] Other 09-28-2022 12:40-0500 Systolic blood pressure 139 mm[Hg] Simba Jac Other [facility] Other 09-13-2022 14:00-0400 Body height 170.18 cm Vinnie Stewart Other [facility] Other 09-13-2022 14:00-0400 Body mass index (BMI) [Ratio] 35.71 kg/m2 Vinnie Stewart Other [facility] Other 09-13-2022 14:00-0400 Body weight 103.42 kg Vinnie Stewart Other [facility] Other 09-13-2022 14:00-0400 Diastolic blood pressure 81 mm[Hg] Vinnie Stewart Other [facility] Other 09-13-2022 14:00-0400 Respiratory rate 16 /min Vinnie Stewart Other [facility] Other 09-13-2022 14:00-0400 SaO2% (BldA) [Mass fraction] 97 % Vinnie Stewart Other [facility] Other 09-13-2022 14:00-0400 Systolic blood pressure 119 mm[Hg] Vinine Stewart Other [facility] Other 07-31-2022 15:30-0400 Body height 170.18 cm Brittnee Spain Other [facility] Other 07-31-2022 15:30-0400 Body mass index (BMI) [Ratio] 35.55 kg/m2 Brittnee Spain Other [facility] Other 07-31-2022 15:30-0400 Body weight 102.97 kg Brittnee Scally Other [facility] Other 07-31-2022 15:30-0400 Diastolic blood pressure 78 mm[Hg] Brittnee Scally Other [facility] Other 07-31-2022 15:30-0400 Respiratory rate 20 /min Brittnee Scally Other [facility] Other 07-31-2022 15:30-0400 SaO2% (BldA) [Mass fraction] 95 % Brittnee Scally Other [facility] Other 07-31-2022 15:30-0400 Systolic blood pressure 125 mm[Hg] Brittnee Scally Other [facility] Other 06-20-2022 12:15-0400 Body height 170.18 cm Vinnie Stewart Other [facility] Other 06-20-2022 12:15-0400 Body mass index (BMI) [Ratio] 35.55 kg/m2 Vinnie Stewart Other [facility] Other 06-20-2022 12:15-0400 Body weight 102.97 kg Vinnie Stewart Other [facility] Other 06-20-2022 12:15-0400 Diastolic blood pressure 47 mm[Hg] Vinnie Stewart Other [facility] Other 06-20-2022 12:15-0400 Respiratory rate 18 /min Vinnie Stewart Other [facility] Other 06-20-2022 12:15-0400 SaO2% (BldA) [Mass fraction] 94 % Vinnie Stewart Other [facility] Other 06-20-2022 12:15-0400 Systolic blood pressure 106 mm[Hg] Vinnie Stewart Other [facility] Other 06-06-2022 11:36-0400 Body temperature 98 [degF] DO Vinnie Stewart Work Phone: [facility] 03-02-2022 15:30-0400 Body height 170.18 cm Vinnie Stewart Other [facility] Other 03-02-2022 15:30-0400 Body mass index (BMI) [Ratio] 35.39 kg/m2 Vinnie Stewart Other [facility] Other 03-02-2022 15:30-0400 Body temperature 97.5 [degF] Vinnie Stewart Other [facility] Other 03-02-2022 15:30-0400 Body weight 102.51 kg Vinnie Stewart Other [facility] Other 03-02-2022 15:30-0400 Diastolic blood pressure 74 mm[Hg] Vinnie Stewart Other [facility] Other 03-02-2022 15:30-0400 Respiratory rate 20 /min Vinnie Stewart Other [facility] Other 03-02-2022 15:30-0400 SaO2% (BldA) [Mass fraction] 94 % Vinnie Stewart Other [facility] Other 03-02-2022 15:30-0400 Systolic blood pressure 114 mm[Hg] Vinnie Stewart Other [facility] Other 02-19-2022 12:05-0400 Body height 170.18 cm Ruthie Guzman Other [facility] Other 02-19-2022 12:05-0400 Body mass index (BMI) [Ratio] 35.71 kg/m2 Ruthie Guzman Other [facility] Other 02-19-2022 12:05-0400 Body temperature 97.4 [degF] Ruthie Guzman Other [facility] Other 02-19-2022 12:05-0400 Body weight 103.42 kg Ruthie Guzman Other [facility] Other 02-19-2022 12:05-0400 Diastolic blood pressure 62 mm[Hg] Ruthie Clementemond Other [facility] Other 02-19-2022 12:05-0400 Respiratory rate 20 /min Ruthie Clementemond Other [facility] Other 02-19-2022 12:05-0400 SaO2% (BldA) [Mass fraction] 94 % Ruthie Guzman Other [facility] Other 02-19-2022 12:05-0400 Systolic blood pressure 116 mm[Hg] Ruthie Megan Other [facility] Other 02-07-2022 16:00-0400 Body height 170.18 cm Balbir Ba Other [facility] Other 02-07-2022 16:00-0400 Body mass index (BMI) [Ratio] 36.02 kg/m2 Balbir Mejia Other [facility] Other 02-07-2022 16:00-0400 Body temperature 97.3 [degF] Balbir Mejia Other [facility] Other 02-07-2022 16:00-0400 Body weight 104.33 kg Balbir Mejia Other [facility] Other 02-07-2022 16:00-0400 Diastolic blood pressure 74 mm[Hg] Balbir Mejia Other [facility] Other 02-07-2022 16:00-0400 SaO2% (BldA) [Mass fraction] 98 % Balbir Mejia Other [facility] Other 02-07-2022 16:00-0400 Systolic blood pressure 136 mm[Hg] Balbir Mejia Other [facility] Other 01-11-2022 14:00-0500 Body height 170.18 cm Brittnee Scally Other [facility] Other 01-11-2022 14:00-0500 Body mass index (BMI) [Ratio] 35.5 kg/m2 Brittnee Scally Other [facility] Other 01-11-2022 14:00-0500 Body weight 102.83 kg Brittnee Scally Other [facility] Other 01-11-2022 14:00-0500 Diastolic blood pressure 62 mm[Hg] Brittnee Scally Other [facility] Other 01-11-2022 14:00-0500 Respiratory rate 20 /min Brittnee Scally Other [facility] Other 01-11-2022 14:00-0500 SaO2% (BldA) [Mass fraction] 98 % Brittnee Scally Other [facility] Other 01-11-2022 14:00-0500 Systolic blood pressure 105 mm[Hg] Brittnee Scally Other [facility] Other 11-16-2021 14:00-0500 Body height 170.18 cm Brittnee Scally Other [facility] Other 11-16-2021 14:00-0500 Body mass index (BMI) [Ratio] 35.72 kg/m2 Brittnee Scally Other [facility] Other 11-16-2021 14:00-0500 Body weight 103.47 kg Brittnee Scally Other [facility] Other 11-16-2021 14:00-0500 Diastolic blood pressure 70 mm[Hg] Brittnee Scally Other [facility] Other 11-16-2021 14:00-0500 Respiratory rate 20 /min Brittnee Scally Other [facility] Other 11-16-2021 14:00-0500 SaO2% (BldA) [Mass fraction] 93 % Brittnee Scally Other [facility] Other 11-16-2021 14:00-0500 Systolic blood pressure 123 mm[Hg] Brittnee Scally Other [facility] Other 10-05-2021 14:45-0500 Body height 170.18 cm Brittnee Scally Other [facility] Other 10-05-2021 14:45-0500 Body mass index (BMI) [Ratio] 35.42 kg/m2 Brittnee Scally Other [facility] Other 10-05-2021 14:45-0500 Body weight 102.6 kg Brittnee Scally Other [facility] Other 10-05-2021 14:45-0500 Diastolic blood pressure 74 mm[Hg] Brittnee Scally Other [facility] Other 10-05-2021 14:45-0500 Respiratory rate 20 /min Brittnee Scally Other [facility] Other 10-05-2021 14:45-0500 SaO2% (BldA) [Mass fraction] 95 % Brittnee Scally Other [facility] Other 10-05-2021 14:45-0500 Systolic blood pressure 123 mm[Hg] Brittnee Scally Other [facility] Other 09-26-2021 12:00-0500 Body height 170.18 cm Vinnie Stewart Other [facility] Other 09-26-2021 12:00-0500 Body mass index (BMI) [Ratio] 35.39 kg/m2 Vinnie Stewart Other [facility] Other 09-26-2021 12:00-0500 Body temperature 98.1 [degF] Vinnie Stewart Other [facility] Other 09-26-2021 12:00-0500 Body weight 102.51 kg Vinnie Stewart Other [facility] Other 09-26-2021 12:00-0500 Diastolic blood pressure 72 mm[Hg] Vinnie Stewart Other [facility] Other 09-26-2021 12:00-0500 Respiratory rate 20 /min Vinnie Lucasley Other [facility] Other 09-26-2021 12:00-0500 SaO2% (BldA) [Mass fraction] 95 % Vinnie Lucasley Other [facility] Other 09-26-2021 12:00-0500 Systolic blood pressure 118 mm[Hg] Vinnie Stewart Other [facility] Other 12-18-2019 10:11-0500 BMI (Body Mass Index) 35.2 kg/m2 [facility] 12-18-2019 10:11-0500 Body weight 108.4 kg [facility] 12-18-2019 10:11-0500 Height 175.26 cm [facility] 12-18-2019 10:01-0500 Body Temperature 97.8 [degF] Vinnie [facility] 12-18-2019 10:01-0500 BP Diastolic 80 mm[Hg] [facility] 12-18-2019 10:01-0500 BP Systolic 126 mm[Hg] [facility] 12-18-2019 10:01-0500 Pulse (Heart Rate) 108 /min [facility] 12-18-2019 10:01-0500 Respiratory Rate 16 /min Vinnie Stewart [facility] Encounters Encounter Date Encounter Type Care Provider Facility Start: 12-27-2023 End: 12-27-2023 ambulatory Vinnie Stewart Other [facility] Other Start: 12-27-2023 Telephone encounter Vinnie Palomino [facility] Start: 12-20-2023 End: 12-20-2023 ambulatory Vinnie Stewart Other [facility] Other Start: 12-20-2023 Telephone encounter Vinnie Palomino [facility] Start: 12-18-2023 End: 12-19-2023 ambulatory VINNIE STEWART [facility] Start: 12-17-2023 End: 12-17-2023 ambulatory Vinnie Stewart Other [facility] [employer] Other Start: 12-17-2023 Telephone encounter Vinnie Palomino [facility] Start: 12-11-2023 Non-patient / Non-visit DO Vinnie Stewart Work Phone: [facility] [place] Work Phone: Start: 12-10-2023 End: 12-11-2023 ambulatory Vinnie Stewart Facility:[facility] Start: 12-10-2023 End: 12-10-2023 Discharged Recurring DO Vinnie Stewart Work Phone: [facility] Work Phone: Start: 12-10-2023 End: 12-10-2023 ambulatory DO Vinnie Stewart Work Phone: [facility] [employer] Other Start: 12-10-2023 Nursing evaluation o f patient and report Brittnee Spain [facility] Start: 11-22-2023 End: 11-22-2023 ambulatory Vinnie Stewart Other [facility] Other Start: 11-22-2023 Office outpatient visit 15 minutes Vinnie FRANCISCO [facility] [place] Start: 11-22-2023 Telephone encounter Vinnie [facility]om[facility] Start: 11-22-2023 End: 11-22-2023 Patient encounter procedure DO Vinnie Stewart Work Phone: [facility] [place] Work Phone: Start: 11-21-2023 End: 11-21-2023 ambulatory Vinnie Stewart Other [facility] Other Start: 11-21-2023 Telephone encounter Vinnie [facility]omino [facility] Start: 11-15-2023 End: 11-15-2023 ambulatory Simba Jac Other [facility] Other Start: 11-15-2023 Office outpatient visit 25 minutes Simba Jac [facility] Start: 11-15-2023 End: 11-15-2023 Patient encounter procedure DO Vinnie Stewart Work Phone: [facility] Work Phone: Start: 11-13-2023 (DM) Diabetes Brittnee [facility] Start: 11-13-2023 End: 11-13-2023 ambulatory Brittnee Spain Other [facility] Other Start: 11-13-2023 Telephone encounter Brittnee Matt [facility] Start: 11-13-2023 End: 11-13-2023 Patient encounter procedure DO Vinnie Stewart Work Phone: [facility] Work Phone: Start: 11-06-2023 End: 11-06-2023 ambulatory Vinnie Stewart Other [facility] Other Start: 11-06-2023 Telephone encounter Vinnie Palomino [facility] Start: 11-01-2023 End: 11-01-2023 ambulatory Brittnee Spain Other [facility] Other Start: 11-01-2023 Telephone encounter Brittnee [facility] Start: 10-25-2023 End: 10-25-2023 ambulatory Vinnie Stewart Other [facility] Other Start: 10-25-2023 Telephone encounter Vinnie Palomino [facility] Start: 10-22-2023 End: 10-22-2023 ambulatory Brittnee Spain Other [facility] Other Start: 10-22-2023 Telephone encounter Brittnee merritt [facility] Start: 10-19-2023 End: 10-19-2023 ambulatory Vinnie Stewart Other [facility] Other Start: 10-19-2023 Telephone encounter Vinnie Palomino [facility] Start: 10-08-2023 End: 10-08-2023 ambulatory Brittnee Spain Other [facility] Other Start: 10-08-2023 Nursing evaluation o f patient and report Brittnee Spain [facility] Start: 10-08-2023 End: 10-08-2023 Patient encounter procedure DO Vinnie Stewart Work Phone: [facility] Work Phone: Start: 10-04-2023 (Acute) Acute Visit Brittnee har[facility] Start: 10-04-2023 End: 10-04-2023 ambulatory Brittnee Spain Other [facility] Other Start: 10-03-2023 End: 10-03-2023 ambulatory Brittnee Spain Other [facility] Other Start: 10-03-2023 Telephone encounter Brittnee [facility] Start: 09-21-2023 End: 09-21-2023 ambulatory [facility] Start: 09-20-2023 End: 09-20-2023 ambulatory Vinnie Stewart Other [facility] Other Start: 09-20-2023 Telephone encounter [facility] [place] Start: 09-18-2023 (DM) Diabetes Brittnee Spain [facility] Start: 09-18-2023 End: 09-18-2023 ambulatory Vinnie Setwart Other [facility] Other Start: 09-18-2023 Telephone encounter [facility] [place] Start: 09-17-2023 End: 09-17-2023 ambulatory Vinnie Stewart Other [facility] Other Start: 09-17-2023 Telephone encounter [facility] [place] Start: 08-31-2023 End: 08-31-2023 ambulatory Brittnee Spain Other [facility] Other Start: 08-31-2023 Telephone encounter [facility] Start: 08-30-2023 End: 08-30-2023 ambulatory UNKNOWN PROVIDER [facility] Other Start: 08-30-2023 Telephone encounter [facility] [place] Start: 08-23-2023 End: 08-23-2023 ambulatory MASSIMO SIMEON [facility] Other Start: 08-23-2023 Telephone encounter [facility] [place] Start: 08-20-2023 End: 08-20-2023 ambulatory Vinnie Stewart Other [facility] Other Start: 08-20-2023 Telephone encounter Vinnie ROSALES [facility] [place] Start: 08-15-2023 Telephone encounter Vinnie ROSALES [facility] [place] Start: 08-15-2023 End: 08-15-2023 ambulatory BRYCE WATSON [facility] Other Start: 08-03-2023 End: 08-03-2023 ambulatory Vinnie Stewart Other [facility] Other Start: 08-03-2023 Telephone encounter [facility] [place] Start: 07-30-2023 End: 07-30-2023 ambulatory Vinnie Stewart Other [facility] Other Start: 07-30-2023 Telephone encounter [facility] [place] Start: 07-27-2023 End: 07-27-2023 ambulatory Vinnie Stewart Other [facility] Other Start: 07-27-2023 Telephone encounter Vinnie ROSALES [facility] [place] Start: 07-24-2023 End: 07-24-2023 ambulatory [facility] Start: 07-20-2023 End: 07-20-2023 ambulatory Vinnie Stewart Other [facility] Other Start: 07-20-2023 Telephone encounter Vinnie ROSALES [facility] [place] Start: 07-19-2023 End: 07-19-2023 ambulatory Vinnie Stewart Other [facility] Other Start: 07-19-2023 Telephone encounter Vinnie ROSALES [facility] [place] Start: 07-16-2023 End: 07-16-2023 ambulatory Vinnie Stewart Other [facility] Other Start: 07-16-2023 Telephone encounter [facility] [place] Start: 07-12-2023 End: 07-12-2023 ambulatory Vinnie Stewart Other [facility] Other Start: 07-12-2023 Telephone encounter [facility] [place] Start: 06-29-2023 (DM) Diabetes Brittneejorge l [facility] Start: 06-29-2023 End: 06-29-2023 ambulatory Vinnie Stewart Other [facility] Other Start: 06-29-2023 Office outpatient visit 15 minutes Vinnie Stewart [facility] [place] Start: 06-18-2023 End: 06-18-2023 ambulatory Vinnie Stewart Other [facility] Other Start: 06-18-2023 Office outpatient visit 15 minutes Vinnie Stewart [facility] [place] Start: 06-15-2023 End: 06-15-2023 ambulatory Vinnie Stewart Other [facility] Other Start: 06-15-2023 Telephone encounter [facility] [place] Start: 06-05-2023 End: 06-06-2023 ambulatory [facility] Start: 05-31-2023 End: 05-31-2023 ambulatory Vinnie Stewart Other [facility] Other Start: 05-31-2023 Telephone encounter [facility] [place] Start: 05-18-2023 End: 05-18-2023 ambulatory Vinnie Stewart Other [facility] Other Start: 05-18-2023 Telephone encounter [facility] [place] Start: 05-08-2023 End: 05-08-2023 ambulatory Tondra Mapus Other [facility] Other Start: 05-08-2023 Telephone encounter Nicolette Manzano [facility] Start: 05-02-2023 End: 05-02-2023 ambulatory Brittnee Spain Other [facility] Other Start: 05-02-2023 Nursing evaluation o f patient and report Brittnee Spain [facility] Start: 04-20-2023 End: 04-20-2023 ambulatory Vinnie Stewart Other [facility] Other Start: 04-20-2023 Telephone encounter [facility] [place] Start: 04-19-2023 End: 04-19-2023 ambulatory Simba Jac Other [facility] Other Start: 04-19-2023 Office outpatient visit 15 minutes Gisselle Noble [facility] Start: 04-19-2023 Office outpatient visit 25 minutes Simba Jac [facility] Start: 04-18-2023 End: 04-18-2023 ambulatory Vinnie Stewart Other [facility] Other Start: 04-18-2023 Telephone encounter [facility] [place] Start: 04-17-2023 Telephone encounter [facility] [place] Start: 04-17-2023 End: 04-17-2023 ambulatory JORGE Goodman [facility] Facility:[facility] Start: 04-13-2023 End: 04-13-2023 ambulatory Simba Jac Other [facility] Other Start: 04-13-2023 Telephone encounter Simba Jac [facility] Start: 04-11-2023 End: 04-12-2023 ambulatory SIMBA JAC Facility:[facility]1 Start: 04-02-2023 End: 04-03-2023 ambulatory JORGE ARROYO [facility] [employer] Other Start: 04-02-2023 Telephone encounter [facility] [place] Start: 03-27-2023 End: 03-28-[address] DEEPAK FOURNIER . [employer] [facility] [employer] Other Start: 03-27-2023 Telephone encounter [facility] Start: 03-21-2023 End: 03-21-2023 ambulatory DAHIANA BELCHER [facility] [employer] Other Start: 03-21-2023 Office outpatient visit 15 minutes [facility]innie [facility]ANCIS[facility] [place] Start: 03-19-2023 Telephone encounter [facility] [place] Start: 03-19-2023 End: 04-18-2023 ambulatory BROWN Jorge L GIGI [facility] [employer] Other Start: 02-27-2023 End: 02-27-2023 ambulatory Vinnie Stewart Other [facility] Other Start: 02-27-2023 Telephone encounter [facility] [place] Start: 02-21-2023 End: 02-21-2023 ambulatory Yakov To Facility:[facility] Start: 02-21-2023 Office outpatient visit 15 minutes Vinnie [facility]ANC[facility] [place] Start: 02-21-2023 End: 02-21-2023 ambulatory DO Vinnie Stewart Work Phone: [facility] Work Phone: Start: 02-21-2023 End: 02-21-2023 Patient encounter procedure DO Vinnie Stewart Work Phone: [facility] [place] Work Phone: Start: 02-20-2023 End: 02-20-2023 ambulatory Vinnie Stewart Other [facility] Other Start: 02-20-2023 Telephone encounter [facility] [place] Start: 02-19-2023 End: 03-16-2023 ambulatory SHAIKH Jorge L YU Facility:[facility]1 Start: 02-13-2023 End: 02-14-2023 Evaluation and management of inpatient Vinnie Stewart Facility:[facility] Start: 02-13-2023 End: 02-14-2023 Evaluation and management of inpatient DO Vinnie Stewart Work Phone: [facility] [employer] Work Phone: Start: 02-13-2023 Registered Recurring DO Vinnie Stewart Work Phone: [facility] Work Phone: Start: 02-13-2023 End: 02-13-2023 ambulatory Vinnie Stewart Other [facility] Other Start: 02-13-2023 Telephone encounter [facility] [place] Start: 02-09-2023 End: 02-09-2023 ambulatory Vinnie Stewart Other [facility] Other Start: 02-09-2023 Office outpatient visit 15 minutes [facility] [place] Start: 02-05-2023 End: 02-05-2023 ambulatory Vinnie Stewart Other [facility] Other Start: 02-05-2023 Telephone encounter [facility] [place] Start: 01-30-2023 End: 01-30-2023 ambulatory Vinnie Stewart Other [facility] Other Start: 01-30-2023 Telephone encounter [facility] [place] Start: 01-29-2023 End: 01-30-2023 ambulatory [facility] Facility:[facility]1 Start: 01-29-2023 End: 01-29-2023 ambulatory [facility] Start: 01-17-2023 Office outpatient visit 15 minutes [facility]innie [facility]ANC[facility] [place] Start: 01-17-2023 End: 02-16-2023 ambulatory SHAIKH Jorge L YU [facility] [employer] Other Start: 01-16-2023 End: 01-16-2023 ambulatory Vinnie Stewart Other [facility] Other Start: 01-16-2023 Telephone encounter [facility] [place] Start: 01-05-2023 End: 01-11-2023 Evaluation and management of inpatient NIK BUNN . Facility:H1 Start: 01-05-2023 ambulatory [facility] Start: 01-02-2023 End: 01-02-2023 ambulatory CANDELARIA Olson Facility:H1 Start: 01-02-2023 End: 01-03-2023 ambulatory [facility] Facility:[facility] Start: 12-26-2022 End: 12-26-2022 ambulatory [facility] Start: 12-26-2022 End: 12-27-2022 ambulatory [facility] Facility:[facility]1 Start: 12-22-2022 End: 12-22-2022 ambulatory Vinnie Stewart Other [facility] [employer] Other Start: 12-22-2022 Telephone encounter [facility] [place] Start: 12-21-2022 ambulatory [facility] Start: 12-20-2022 End: 01-17-2023 ambulatory Jorge L GIGI Facility:H1 Start: 12-19-2022 Telephone encounter Vinnie Palomino [facility] [place] Start: 12-19-2022 End: 12-19-2022 ambulatory [facility] [employer] Other Start: 12-14-2022 End: 12-14-2022 ambulatory Vinnie Stewart Other [facility] Other Start: 12-14-2022 Telephone encounter [facility] [place] Start: 12-12-2022 End: 12-12-2022 ambulatory Brittnee Spain Other [facility] Other Start: 12-12-2022 Nursing evaluation o f patient and report Brittnee Spain [facility] Start: 12-11-2022 Telephone encounter [facility] [place] Start: 12-11-2022 End: 12-11-2022 ambulatory KODI MYERS [facility] Other Start: 12-04-2022 End: 12-04-2022 ambulatory DO Vinnie Stewart Work Phone: [facility] Work Phone: Start: 12-04-2022 End: 12-04-2022 Registered Recurring DO Vinnie Stewart Work Phone: [facility] Work Phone: Start: 12-01-2022 End: 12-01-[address] [facility] Start: 11-29-2022 End: 11-29-2022 ambulatory Vinnie Stewart Other [facility] Other Start: 11-29-2022 Telephone encounter [facility] [place] Start: 11-27-2022 End: 11-27-2022 ambulatory Vinnie Stewart Other [facility] Other Start: 11-27-2022 Telephone encounter [facility] [place] Start: 11-20-2022 End: 12-20-2022 ambulatory BROWN Jorge L GIGI Facility: Start: 11-14-2022 End: 11-15-[address] [facility] [employer] Other Start: 11-14-2022 Telephone encounter Vinnie Palomino [facility] Start: 11-07-2022 (DM) Diabetes Brittnee Spain [facility] Start: 11-07-2022 End: 11-07-2022 ambulatory Brittnee Remalouisa Other [facility] Other Start: 11-07-2022 Registered Recurring DO Vinnie Stewart Work Phone: [facility] Work Phone: Start: 11-01-2022 End: 11-01-2022 ambulatory Brittnee Spain Other [facility] Other Start: 11-01-2022 Telephone encounter Brittnee Spain [facility] Start: 10-31-2022 End: 10-31-2022 ambulatory Vinnie Stewart Other [facility] Other Start: 10-31-2022 Telephone encounter [facility] [place] Start: 10-27-2022 Telephone encounter Gisselle Dickey [facility] Start: 10-27-2022 End: 10-28-2022 ambulatory BRYCE WATSON [facility] Other Start: 10-19-2022 End: 11-19-2022 ambulatory SHAIKH Jorge L [facility]ex Facility: Start: 10-11-2022 End: 10-11-2022 ambulatory Brittnee Scallouisa Other [facility] Other Start: 10-11-2022 Telephone encounter Brittnee Spain [facility] Start: 10-09-2022 End: 10-09-2022 ambulatory Vinnie Stewart Other [facility] Other Start: 10-09-2022 Telephone encounter [facility] [place] Start: 10-05-2022 End: 10-05-2022 ambulatory Vinnie Stewart Other [facility] Other Start: 10-05-2022 Telephone encounter [facility] [place] Start: 10-03-2022 End: 10-03-[address] BIANCA STUART Facility:H1 Start: 09-28-2022 End: 09-28-2022 ambulatory Simba Jac Other [facility] Other Start: 09-28-2022 Office outpatient visit 15 minutes Gisselle Noble [facility] Start: 09-28-2022 Office outpatient visit 25 minutes Simba Jac [facility] Start: 09-27-2022 End: 09-27-2022 ambulatory Vinnie Stewart Other [facility] Other Start: 09-27-2022 Telephone encounter [facility] [place] Start: 09-19-2022 End: 10-18-2022 ambulatory SHAIKH Jorge L YU Facility:H1 Start: 09-18-2022 Telephone encounter Brittnee Matt [facility] Start: 09-18-2022 End: 09-19-2022 ambulatory SIMBA JAC [facility] Other Start: 09-13-2022 End: 09-13-2022 ambulatory Vinnie Stewart Other [facility] Other Start: 09-13-2022 Office outpatient visit 15 minutes Vinnie FRANCISCO [facility] [place] Start: 09-08-2022 End: 09-08-2022 ambulatory Vinnie Stewart Other [facility] Other Start: 09-08-2022 Telephone encounter [facility] [place] Start: 08-31-2022 End: 08-31-2022 ambulatory Brittnee Spain Other [facility] Other Start: 08-31-2022 Telephone encounter [facility] Start: 08-21-2022 End: 08-21-2022 ambulatory Vinnie Stewart Other [facility] Other Start: 08-21-2022 Telephone encounter [facility] [place] Start: 08-20-2022 End: 09-18-2022 ambulatory SHAIKH Jorge L LIMD Facility:H1 Start: 08-02-2022 End: 08-02-2022 ambulatory Vinnie Stewart Other [facility] Other Start: 08-02-2022 Telephone encounter [facility] [place] Start: 07-31-2022 (DM) Diabetes Brittnee Spain [facility] Start: 07-31-2022 End: 07-31-2022 ambulatory Brittnee Spain Other [facility] Other Start: 07-20-2022 End: 08-19-2022 ambulatory SHAIKH Jorge L LIMD Facility:H1 Start: 07-19-2022 End: 07-20-2022 ambulatory MASSIMO UJSTINCKER Facility:[facility]1 Start: 07-18-2022 End: 07-18-2022 ambulatory Brittnee Spain Other [facility] Other Start: 07-18-2022 Telephone encounter [facility] Start: 07-11-2022 End: 07-11-2022 ambulatory Vinnie Stewart Other [facility] Other Start: 07-11-2022 Telephone encounter [facility] [place] Start: 06-27-2022 End: 06-27-2022 ambulatory Vinnie Stewart Other [facility] Other Start: 06-27-2022 Telephone encounter Vinnie [facility]om[facility] [place] Start: 06-23-2022 End: 06-24-2022 ambulatory PETER D HIGHLANDER Facility:H1 Start: 06-20-2022 End: 06-20-2022 ambulatory Vinnie Stewart Other [facility] Other Start: 06-20-2022 Office outpatient visit 15 minutes Vinnie [facility]ANCIS[facility] [place] Start: 06-19-2022 Telephone encounter Brittnee [facility] Start: 06-19-2022 End: 07-19-2022 ambulatory SHAIKH Jorge L FALAISHAD [facility] Other Start: 06-13-2022 End: 06-16-2022 Evaluation and management of inpatient SHAIKH Jorge L LIMD Facility:[facility]1 Start: 06-06-2022 End: 06-06-2022 ambulatory Vinnie Stewart Other [facility] Other Start: 06-06-2022 Telephone encounter [facility] [place] Start: 06-01-2022 End: 06-02-2022 ambulatory PETER D HIGHLANDER Facility:[facility]1 Start: 05-30-2022 End: 05-30-2022 ambulatory Vinnie Stewart Other [facility] Other Start: 05-30-2022 Telephone encounter Vinnie [facility] [place] Start: 05-25-2022 End: 05-26-2022 ambulatory PETER D HIGHLANDER Facility:H1 Start: 05-19-2022 End: 06-16-2022 ambulatory SHAIKH Jorge L VEGAWAD Facility:[facility]1 Start: 05-18-2022 End: 05-19-2022 ambulatory PETER D HIGHLANDER Facility:[facility]1 Start: 05-17-2022 End: 05-17-2022 ambulatory Brittnee Judit Other [facility] Other Start: 05-17-2022 Telephone encounter [facility] Start: 05-16-2022 End: 05-16-2022 ambulatory Vinnie Stewart Other [facility] Other Start: 05-16-2022 Telephone encounter Vinnie ROSALES [facility] [place] Start: 05-08-2022 End: 05-10-2022 ambulatory VINNIE STEWART Facility:[facility]1 Start: 05-04-2022 End: 05-04-2022 ambulatory Vinnie Stewart Other [facility] Other Start: 05-04-2022 Telephone encounter Vinnie ROSALES [facility] [place] Start: 04-28-2022 End: 05-02-2022 Evaluation and management of inpatient SHAIKH Jorge L YU Facility:H1 Start: 04-26-2022 End: 04-26-2022 ambulatory Brittnee Judit Other [facility] Other Start: 04-26-2022 Telephone encounter Brittnee Matt [facility] Start: 04-25-2022 End: 04-25-2022 ambulatory Vinnie Stewart Other [facility] Other Start: 04-25-2022 Telephone encounter Vinnie ROSALES [facility] [place] Start: 04-24-2022 End: 04-24-2022 ambulatory Vinnie Stewart Other [facility] Other Start: 04-24-2022 Telephone encounter Vinnie ROSALES [facility] [place] Start: 04-10-2022 End: 04-10-2022 ambulatory Brittnee Judit Other [facility] Other Start: 04-10-2022 Telephone encounter Brittnee Spain [facility] Start: 03-21-2022 End: 03-21-2022 ambulatory Vinnie Stewart Other [facility] Other Start: 03-21-2022 Telephone encounter Vinnie ROSALES [facility] [place] Start: 03-17-2022 End: 03-17-2022 ambulatory Vinnie Stewart Other [facility] Other Start: 03-17-2022 Telephone encounter Vinnie ROSALES [facility] [place] Start: 03-03-2022 End: 03-03-2022 ambulatory Vinnie Stewart Other [facility] Other Start: 03-03-2022 Telephone encounter Vinnei ROSALES [facility] [place] Start: 03-02-2022 End: 03-02-2022 ambulatory Vinnie Stewart Other [facility] Other Start: 03-02-2022 Office outpatient visit 15 minutes Vinnie Stewart [facility] [place] Start: 02-20-2022 End: 02-20-2022 ambulatory Vinnie Stewart Other [facility] Other Start: 02-20-2022 Telephone encounter Vinnie ROSALES [facility] [place] Start: 02-19-2022 End: 02-19-2022 ambulatory Ruthie Guzman Other [facility] Other Start: 02-19-2022 Office outpatient visit 15 minutes Ruthie Guzman [facility] Start: 02-19-2022 Telephone encounter Vinnie ROSALES [facility] Start: 02-10-2022 End: 02-10-2022 ambulatory Vinnie Stewart Other [facility] Other Start: 02-10-2022 Telephone encounter Vinnie ROSALES [facility] [place] Start: 02-07-2022 End: 02-07-2022 ambulatory Balbri Ba Other [facility] Other Start: 02-07-2022 Office outpatient visit 25 minutes Balbir Ba [facility] Start: 02-06-2022 End: 02-06-2022 ambulatory Vinnie Stewart Other [facility] Other Start: 02-06-2022 Telephone encounter Vinnie [facility] [place] Start: 01-27-2022 End: 01-27-2022 ambulatory Vinnie Stewart Other [facility] Other Start: 01-27-2022 Telephone encounter Vinnie [facility] [place] Start: 01-26-2022 End: 01-26-2022 ambulatory Vinnie Stewart Other [facility] Other Start: 01-26-2022 Telephone encounter Vinnie [facility] [place] Start: 01-11-2022 (DM) Diabetes Brittnee [facility] Start: 01-11-2022 End: 01-11-2022 ambulatory Brittnee Spain Other [facility] Other Start: 01-10-2022 End: 01-10-2022 ambulatory Vinnie Stewart Other [facility] Other Start: 01-10-2022 Telephone encounter Vinnie [facility] [place] Start: 01-05-2022 End: 01-05-2022 ambulatory Brittnee Spain Other [facility] Other Start: 01-05-2022 Telephone encounter Brittnee Spain [facility] Start: 12-26-2021 End: 12-26-2021 ambulatory Vinnie Stewart Other [facility] Other Start: 12-26-2021 Telephone encounter [facility]innie [facility] [place] Start: 12-20-2021 End: 12-20-2021 ambulatory Brittnee Spain Other [facility] Other Start: 12-20-2021 Telephone encounter [facility] Start: 12-09-2021 End: 12-09-2021 ambulatory Vinnie Stewart Other [facility] Other Start: 12-09-2021 Telephone encounter Vinnie Palomino [facility] [place] Start: 11-30-2021 End: 11-30-2021 ambulatory Vinnie Stewart Other [facility] Other Start: 11-30-2021 Telephone encounter Vinnie Palomino [facility] [place] Start: 11-29-2021 End: 11-29-2021 ambulatory Brittnee Spain Other [facility] Other Start: 11-29-2021 Telephone encounter [facility] Start: 11-28-2021 End: 11-28-2021 ambulatory Brittnee Spain Other [facility] Other Start: 11-28-2021 Telephone encounter Vinnie Palomino [facility] [place] Start: 11-21-2021 End: 11-21-2021 ambulatory Brittnee Spain Other [facility] Other Start: 11-21-2021 Telephone encounter [facility] Start: 11-17-2021 End: 11-17-2021 ambulatory Vinnie Stewart Other [facility] Other Start: 11-17-2021 Telephone encounter Vinnie Palomino [facility] [place] Start: 11-16-2021 (DM) Diabetes Brittnee Remalouisa [facility] Start: 11-16-2021 End: 11-16-2021 ambulatory Brittnee Spain Other [facility] Other Start: 10-11-2021 End: 10-11-2021 ambulatory Vinnie Stewart Other [facility] Other Start: 10-11-2021 Telephone encounter Vinnie [facility] Start: 10-10-2021 End: 10-10-2021 ambulatory Vinnie Stewart Other [facility] Other Start: 10-10-2021 Telephone encounter Vinnie ROSALES [facility] [place] Start: 10-05-2021 (DM) Diabetes Brittnee yee [facility] Start: 10-05-2021 End: 10-05-2021 ambulatory Brittnee Spain Other [facility] Other Start: 09-26-2021 End: 09-26-2021 ambulatory iVnnie Stewart Other [facility] Other Start: 09-26-2021 Office outpatient visit 15 minutes Vinnie FRANCISCO [facility] [place] Start: 09-16-2021 End: 09-16-2021 ambulatory Brittnee Judit Other [facility] Other Start: 09-16-2021 Telephone encounter Brittnee [facility] Start: 04-12-2021 End: 04-17-2021 Evaluation and management of inpatient [place] Facility:[facility] Start: 12-16-2020 End: 12-16-2020 Patient encounter procedure Vinnie Stewart -[facility] Start: 12-06-2020 Registered Recurring Vinnie Stewart - [facility] [place] Start: 12-18-2019 End: 12-18-2019 Discharged Recurring Vinnie Stewart -[facility] Start: 09-23-2019 End: 09-23-2019 Patient encounter procedure Vinnie Stewart -[facility] Start: 02-24-2019 End: 02-24-2019 Admission to day surgery Vinnie Stewart -[facility] Procedures Date Procedure Procedure Detail Performing Clinician Start: 02-13-2023 CT of head without contrast DO Vinnie Stewart Work Phone: Start: 02-13-2023 Plain chest X-ray DO Rhonda robles Stewart Work Phone: Start: 04-13-2021 INTRODUCE OF OTH THE RAP SUBST INTO RESP TRACT, VIA OPENING BALBIR STUBBS Start: 04-13-2021 ULTRASONOGRAPHY OF R IGHT AND LEFT HEART, TRANSESOPHAGEAL SAMER J OLIVER Start: 12-04-2019 Aerobic microbial culture Vinnie Stewart Start: 12-04-2019 End: 12-04-2019 Anaerobic microbial culture Vinnie eduardo Start: 12-04-2019 Investigation of tra nsfusion reaction Vinnie Stewart Start: 12-04-2019 X-ray of left foot Stephen ceferino Stewart Plan of Treatment Date Care Activity Detail Author Start: 02-23-2023 [facility] Start: 02-22-2023 [facility] Start: 02-21-2023 [facility] Start: 02-20-2023 [facility] Start: 02-19-2023 [facility] Start: 02-18-2023 Blood chemistry [facility] Start: 02-18-2023 [facility] Start: 02-17-2023 Blood chemistry [facility] Start: 02-17-2023 [facility] Start: 02-16-2023 Blood chemistry [facility] Start: 02-16-2023 [facility] Start: 02-15-2023 Blood chemistry [facility] Start: 02-15-2023 [facility] Start: 02-14-2023 Blood chemistry [facility] Start: 02-14-2023 End: 02-14-2023 [facility] Start: 02-14-2023 [facility] Start: 02-13-2023 Hospital admission [facility] Start: 02-13-2023 Physical therapy procedure [facility] Start: 02-13-2023 Referral to occupati onal therapist [facility] Start: 02-13-2023 [facility] Patient Education Heart Failure, Adult (DC) [facility] Work Phone: Patient referral [facility] Work Phone: [facility] Immunizations Immunization Date Immunization Notes Care Provider Fa rachel 08-23-2021 COVID-19 Vaccine Pfizer - Documentation Purposes Only Vinnie Stewart Other [facility] 08-10-2021 influenza, seasonal, injectable Vinnie Stewart Other [facility] 01-14-2021 COVID-19 Vaccine Pfizer - Documentation Purposes Only Vinnie Stewart Other [facility] 01-04-2021 COVID-19 Vaccine Moderna - Documentation Purposes Only Vinnie Stewart Other [facility] 12-24-2020 COVID-19 Vaccine Pfizer - Documentation Purposes Only Vinnie Stewart Other [facility] 10-19-2020 pneumococcal conjugate vaccine, 13 valent Vinnie Stewart Other [facility] 08-16-2018 zoster vaccine recombinant Vinnie Stewart Other [facility] 08-23-2016 pneumococcal polysaccharide vaccine, 23 valent Vinnie Stewart Other [facility] 08-21-2016 influenza, injectable, quadrivalent, preservative free DO Vinnie Stewart Work Phone: [facility] 08-21-2016 influenza, injectable, quadrivalent, contains preservative Vinnie Stewart Other [employer] [facility] [employer] Other NEGATED: Highlighted row has not occurred! 5 influenza, injectable, quadrivalent, contains preservative Patient Objection Vinnie Stewart Other [employer] [facility] [employer] Other Payers Date Payer Category Payer Medicare [id number] [id number] 2019 Self-pay [id number] 1959 Medicaid [id number] 1959 Unknown [id number] 1954 Unknown [id number] 2.16.8 40.1.666672.3.579.2.647 1954 Unknown [id number] 2.16.84 0.1.011247.3.579.2.593 1954 Unknown [id number] 2.16.84 0.1.192694.3.579.2.593 1954 Unknown [id number] 2.16.84 0.1.558880.3.579.2.593 1954 Unknown [id number] 2.16.84 0.1.580560.3.579.2.593 1954 Unknown [id number] 2.16.84 0.1.059864.3.579.2.593 1954 Unknown [id number] 2.16.84 0.1.284107.3.579.2.593 1954 Unknown [id number] 2.16.84 0.1.733942.3.579.2.593 1954 Unknown [id number] 2.16.84 0.1.150287.3.579.2.593 1954 Unknown [id number] 2.16.84 0.1.521158.3.579.2.593 1954 Unknown [id number] 2.16.84 0.1.999108.3.579.2.593 1954 Unknown [id number] 2.16.84 0.1.188984.3.579.2.593 1954 Unknown [id number] 2.16.84 0.1.699581.3.579.2.593 1954 Unknown [id number] 2.16.84 0.1.483723.3.579.2.593 1954 Unknown [id number] 2.16.84 0.1.550210.3.579.2.593 1954 Unknown [id number] 2.16.84 0.1.110471.3.579.2.593 1954 Unknown [id number] 2.16.84 0.1.596946.3.579.2.593 1954 Unknown [id number] 2.16.84 0.1.303700.3.579.2.593 1954 Unknown [id number] 2.16.84 0.1.230722.3.579.2.593 1954 Unknown [id number] 2.16.84 0.1.190784.3.579.2.593 1954 Unknown [id number] 2.16.84 0.1.597596.3.579.2.593 1954 Unknown [id number] 2.16.84 0.1.368497.3.579.2.593 1954 Unknown [id number] 2.16.84 0.1.914357.3.579.2.593 1954 Unknown [id number] 2.16.84 0.1.025865.3.579.2.593 1954 Unknown [id number] 2.16.84 0.1.419446.3.579.2.593 1954 Unknown [id number] 2.16.84 0.1.179298.3.579.2.593 1954 Unknown [id number] 2.16.84 0.1.425527.3.579.2.593 1954 Unknown [id number] 2.16.84 0.1.642832.3.579.2.593 1954 Unknown [id number] 2.16.84 0.1.003334.3.579.2.593 1954 Unknown [id number] 2.16.84 0.1.898555.3.579.2.593 1954 Unknown [id number] 2.16.84 0.1.461592.3.579.2.593 1954 Unknown [id number] 2.16.84 0.1.491753.3.579.2.593 1954 Unknown [id number] 2.16.84 0.1.415367.3.579.2.593 1954 Unknown [id number] 2.16.84 0.1.282119.3.579.2.593 1954 Unknown [id number] 2.16. 840.1.186013.3.579.2.732 1954 Unknown [id number] 2.16.8 40.1.838080.3.579.2.1286 Unknown [id number] Unknown [id number] 2.16.8 40.1.201951.3.579.2.531 Unknown [id number] 2.16.8 40.1.203432.3.579.2.531 Unknown [id number] 2.16.8 40.1.113701.3.579.2.531 Social History Date Type Detail Facility Start: 12-18-2019 End: 02-13-2023 Tobacco smoking status UTIS Ex-smoker (finding) [facility] Start: 1955 Sex Assigned At Male F [facility] Sex Assigned At Sex Assigned At [facility] Other Medical Equipment Procedure Code Equipment Code Equipment Origin al Text Equipment Identifier Dates Pen [place] 32G X 4 MM Start: 03-21-2022 Goals Date Patient Goal Desired Activity /State Functional Status Date Assessment Result Facility 02-14-2023 Functional status Patient at [facility] Work Phone: Mental Status Date Assessment Result Facility 02-14-2023 Cognitive function Cognitive Sta tus Patient at Baseline [facility] Work Phone: Clinical Notes 04-18-2021 to 12-20-2023 Note Date & Type Note Facility 12-20-2023 Evaluation note Encounter Date Diagnosis Assessment Notes Dec, Facet arthritis of lumbar region (ICD-10 - M46.96) [facility] [employer] Other 01-29-2024 Evaluation note* Encounter Date Diagnosis Assessment Notes Treatment Notes Treatment Clinical Notes Nov, Increased urinary frequency (ICD-10 - R35.0) [facility] [employer] Other 01-22-2024 Evaluation note* Encounter Date Diagnosis Assessment Notes Treatment Notes Treatment Clinical Notes Nov, Diabetes mellitus with chronic kidney disease (ICD-10 - E11.22) Adwoa came in today for download and evaluation of his Lucas report. His average BG was 289, 14% in range, 20% high, and 66% very high. He cannot tell me what he has eaten in the last 2 weeks other than uncrustables, and he just had a burger and a few fries from [employer] before he came here. He said that he took 15 units of insulin before he left the house and his BG was 130. His BG on the lucas report said 197. I asked how long it was between his injection and eating, he said 30 minutes. We discussed that he should be taking his insulin about 15 minutes before eating and that he should take it with him when he leaves the house so that he can take it at the restaurant instead of possibly having a low on the way to the restaurant. He couldn't tell me with any honesty any other meal he had eaten and when. He said that he takes 45 units of Tresiba daily and 15-18 units of Humalog 4 times per day. He and his family member refuse to count carbs and state that they don't have time to do so. After discussing with Tyesha Spain APRN, she elected to increase Adwoa's Tresiba to 50 units daily. 60 minutes were spent evaluating the patient's report, discussing it with the patient and making changes by Shaw Rondon RN, [facility]. 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 failure w/hypoxia, acute on systolic chronic HF Medical History [facility]- r ight great toe bleeding (not stopping) Medical History pneumonia-[facility] 06-05 Medical History [facility]-7-2023 Medical History [id number]-[facility] Medical History NON RESPONSIVE X 2 IN THE LAST 6 WEEKS Surgical History Cardiac catherization (07/2010) Surgical History [...] Surgical History CATARACT REMOVED ON RIGHT EYE 9 /07/2021 Surgical History CATARACT REMOVED FROM LEFT EYE 06/2021 Hospitalization History see surgical hx Hospitalization History rt. heart cath [facility]- [facility] 05/11/16 Hospitalization History Water retention/ [facility] 02/2017 Hospitalization History Observation-[facility] 11/2017 Hospitalization History INFECTION IN LEFT SMALL TOE AND FOOT 11/2018 Hospitalization History [facility] -- ICU -- COPD, SMAL L WOUND ON LEFT FOOT 12/2019 Hospitalization History COPD [facility] [place] 12/2019 Hospitalization History Ankle wound 01/2020 Hospitalization History COVID 11/2020 Hospitalization History A-FIB, CHF, KIDNEY ISSUE S 03/2021 Hospitalization History [facility] 01/2023 Hospitalization History [facility] discha rged 03-27-2023 Hospitalization History [facility] x2 7-2 023 Hospitalization History RSV-[facility] 10-2 023 Hospitalization History [facility] rib fx left Hospitalization History [facility] -pnemo jennifer [employer] Other 01-08-2024 [facility]Rem[facility] NoteMonitor with routine echoUnSuburban Community [facility] & [facility]01-[facility]-2024 NoteDevice interrogation q 6 monthsUnSuburban [facility] Hospital & [facility]01-08-2024 NoteContinue coreg AICD in placeUnSuburban Community Hospital & [facility]01-08-2024 NoteRemains on statin [facility]01-08-2024 NoteHypertension is Remains on Coreg, hydralazine, isordil, aldacotonUnSuburban Community Hospital & [facility]01-08-2024 NoteNYHC Continue GDMT- ASA, lipitor, coreg, farxiga, digoxin, hydralazine, isordil, aldactone Diuretic therapy- bumex and metolazone Monitor daily weights, I&O, fluid restriction 1.5-2L/day, renal function and electrolytes-[facility]01-08-2024 NoteRemains on GDMT [facility]01-08-2024 [id number]= remainds on warfarin anticoagulation, DIgoxin and COregUnSuburban Community [facility]01-08-2024 NoteCoronary artery disease is Continue GDMT continue risk factor modifications- heart healthy diet, regular exercise as tolerated and continue all medications.[facility] 11-22-2023 Evaluation note* Encounter Date Diagnosis Assessment Notes Treatment Notes Treatment Clinical Notes Nov, Hypertensive heart disease with heart failure (ICD-10 - I11.0) Nov, Unsteady gait (ICD-10 - R26.81) Physical therapy will be added. He is to use a walker at all times as a wheelchair will not work in his house. I advised him to allow his family to help him, at all times if possible Nov, Facet arthritis of lumbar region (ICD-10 - M46.96) [employer] Other 01-03-2024 Evaluation note* Encounter Date Diagnosis Assessment Notes Treatment Notes Treatment Clinical Notes Nov, Facet arthritis of lumbar region (ICD-10 - M46.96) [employer] Other 12-28-2023 Evaluation note* Encounter Date Diagnosis Assessment Notes Treatment Notes Treatment Clinical Notes Oct, Diabetes mellitus wi th chronic kidney disease (ICD-10 - E11.22) Continue follow-up with DM clinic for DM management. He was taken off of the losartan due to the advanced CKD. Continue farxiga to slow down the progression of CKD. Oct, Chronic kidney disea se, stage III (moderate) [...] left renal cyst and nonobstructive kidney stones. Oct, Benign arteriolar nephrosclerosis (ICD-10 - I12.9) Blood pressure is controlled but he appears to be euvolemic. Continue Current dose of lasix, metolazone and spironolactone I also advised him to limit the fluid intake to 50 ounces a day. Oct, Secondary hyperparathyroidism (ICD-10 - N25.81) MBD parameters including calcium phosphorus and vitamin D are within the goal Oct, Hypokalemia (ICD-10 - E87.6) He has a hypokalemia due to the diuretic induced renal potassium wasting. He was prescribed potassium chloride by me but just started couple of days ago. We will repeat the serum potassium in couple of days. Oct, Hyponatremia (ICD-10 - E87.1) He has hyponatremia likely due to the CHF. Advised him to fluid restriction 50 ounces a day. Will also rule out hypothyroidism adrenal insufficiency. Oct, Hyperuricemia (ICD-1 0 - E79.0) He has hyperuricemia due to the CKD and diuretics. Denies any recent gout flare. Will monitor without any medications. Oct, Leukocytosis (ICD-10 - D72.829) He has a persistent leukocytosis and was seen by hematology. Advised family and patient to continue follow-up with hematology as needed basis. [employer] Other 12-26-2023 Evaluation note* Encounter Date Diagnosis Assessment Notes Treatment Notes Treatment Clinical Notes Oct, Vitamin D deficiency (ICD-10 - E55.9) sees NEPHRO Oct, Type 2 diabetes mellitus with hyperglycemia (ICD-10 - E11.65) 2 x sample pens Tresiba u200 given today 11/13/2023. 12 U Humalog U100 INSULIN given ON SITE FOR BG 529-- DCS. He did demonstrate injecting into his left lower abdomen with some tremors but adequate delivery via insulin syringe. He does use insulin pens at home which should be somewhat better, but would benefit from someone else dosing and delivering 1. Uncontrolled diabetes mellitus, last A1c was 9.3%, GMI today implies 10.1%. High variability on CGM, A1c goal under 8% due to comorbidities, avoid tight 2. Here for diabetes follow-up, did not go to emergency room after last appointment as recommended. Reports she is taking 40 units of Tresiba once daily, admitted to only taking 12 units today as he used up the last of his Tresiba that was sample to him last visit. He is on Trulicity due today 4.5 mg subcu weekly, he reports having this medication. His weight today is 184.8 pounds this is down 10.4 pounds from the last appointment. He he reports he is continuing Farxiga 10 mg once daily. I will increase him to Tresiba 45 units once daily, encouraged this dosing to be done with help. Hopeful they will document on the lucas to assure dosing. His fast acting insulin is Humalog U200 fixed dosing with meals for safety 12 units for small meal, 16 units for medium meal, 18 units for a large meal and 20 units for an extra large meal, this fixed dosing should accommodate corrective and mealtime needs. He appears to not be treating snacks and reports eating a lot of sweets over the holidays. I will forward my concerns about patient being home alone and insulin dosing. Concerns for accuracy and dexterity. Research shows that stamina with the current [...] no refills PAP will need review 09/2023. Tresiba sent to local pharmacy in case PAP is unable to be completed soon Oct, Dietary counseling and surveillance (ICD-10 - Z71.3) [employer] About Healthy Weight material was published to portal Oct, Hyperlipidemia (ICD-10 - E78.5) Last March 2023, LDL 37.8, triglycerides 96. 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 failure w/hypoxia, acute on systolic chronic HF Medical History [facility]- r ight great toe bleeding (not stopping) Medical History pneumonia-[facility] 06-05 Medical History [facility]-7-2023 Medical History [id number]-[facility] Surgical History Cardiac catherization (07/2010) Surgical History AICD insertion (11/2010) Surgical History right sided heart cath - [facility] 10/2013 Surgical History appendectomy Surgical History rt [...] Hospitalization History rt. heart cath [facility] Stout- [facility] 05/11/16 Hospitalization History Water retention/ [facility] 02/2017 Hospitalization History Observation-[facility] 11/2017 Hospitalization History INFECTION IN LEFT SMALL TOE AND FOOT 11/2018 Hospitalization History [facility] -- ICU -- COPD, SMAL L WOUND ON LEFT FOOT 12/2019 Hospitalization History COPD [facility] [place] 12/2019 Hospitalization History Ankle wound 01/2020 Hospitalization History COVID 11/2020 Hospitalization History A-FIB, CHF, KIDNEY ISSUE S 03/2021 [place] [facility] [place] Hospitalization History [facility] discha rged 03-27-2023 Hospitalization History [facility] x2 7-2 023 Hospitalization History [facility] 10-2 023 [employer] Other 12-19-2023 History general Narrative - Reported* [...] Medical History [facility] Medical History 04/28/2022 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 failure w/hypoxia, acute on systolic chronic HF Medical History [facility]- r ight great toe bleeding (not stopping) Medical History pneumonia-[facility] 06-05 Medical History [facility]-7-2023 Medical History [id number]-[facility] Surgical History Cardiac catherization (07/2010) Surgical History AICD insertion (11/2010) Surgical History right sided heart cath - [facility] 10/2013 Surgical History appendectomy Surgical History rt [...] Hospitalization History rt. heart cath [facility]- [facility] 05/11/16 Hospitalization History Water retention/ [facility] 02/2017 Hospitalization History Observation-[facility] 11/2017 Hospitalization History INFECTION IN LEFT SMALL TOE AND FOOT 11/2018 Hospitalization History [facility] -- ICU -- COPD, SMAL L WOUND ON LEFT FOOT 12/2019 Hospitalization History COPD [facility] [place] 12/2019 Hospitalization History Ankle wound 01/2020 Hospitalization History COVID 11/2020 Hospitalization History A-FIB, CHF, KIDNEY ISSUE S 03/2021 Hospitalization [place] [facility] [place] Hospitalization History [facility] discha rged 03-27-2023 Hospitalization History [facility] x2 7-2 023 Hospitalization History [facility] 10-2 023 [facility] Other 12-08-2023 History general Narrative - Reported* [...] Medical History [facility] Medical History 04/28/2022 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 failure w/hypoxia, acute on systolic chronic HF Medical History [facility]- r ight great toe bleeding (not stopping) Medical History pneumonia-[facility] 06-05 Medical History [facility]-7-2023 Medical History [id number]-[facility] Surgical History Cardiac catherization (07/2010) Surgical History AICD insertion (11/2010) Surgical History right sided heart cath - [facility] 10/2013 Surgical History appendectomy Surgical History rt [...] Hospitalization History rt. heart cath [facility]- [facility] 05/11/16 Hospitalization History Water retention/ [facility] 02/2017 Hospitalization History Observation-[facility] 11/2017 Hospitalization History INFECTION IN LEFT SMALL TOE AND FOOT 11/2018 Hospitalization History [facility] -- ICU -- COPD, SMAL L WOUND ON LEFT FOOT 12/2019 Hospitalization History COPD [facility] [place] 12/2019 Hospitalization History Ankle wound 01/2020 Hospitalization History COVID 11/2020 Hospitalization History A-FIB, CHF, KIDNEY ISSUE S 03/2021 Hospitalization History [facility] [place] Hospitalization History [facility] discha rged 03-27-2023 Hospitalization History [facility] x2 7-2 023 Hospitalization History [facility] 10-2 023 [facility] Other 12-06-2023 History general Narrative - Reported* [...] Medical History [facility] Medical History 04/28/2022 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 failure w/hypoxia, acute on systolic chronic HF Medical History [facility]- r ight great toe bleeding (not stopping) Medical History pneumonia-[facility] 06-05 Medical History [facility]-7-2023 Medical History [id number]-[facility] Surgical History Cardiac catherization (07/2010) Surgical History AICD insertion (11/2010) Surgical History right sided heart cath - [facility] 10/2013 Surgical History appendectomy Surgical History rt [...] Hospitalization History rt. heart cath [facility]- [facility] 05/11/16 Hospitalization History Water retention/ [facility] 02/2017 Hospitalization History [facility] 11/2017 Hospitalization History INFECTION IN LEFT SMALL TOE AND FOOT 11/2018 Hospitalization History [facility] -- ICU -- COPD, SMAL L WOUND ON LEFT FOOT 12/2019 Hospitalization History COPD [facility] [place] 12/2019 Hospitalization History Ankle wound 01/2020 Hospitalization History COVID 11/2020 Hospitalization History A-FIB, CHF, KIDNEY ISSUE S 03/2021 Hospitalization [place] [facility] [place] Hospitalization History [facility] discha rged 03-27-2023 Hospitalization History [facility] x2 7-2 023 Hospitalization History RSV-[facility] 10-2 023 [facility] Other 12-04-2023 Evaluation note* Encounter Date Diagnosis Assessment Notes Treatment Notes Treatment Clinical Notes Oct, Type 2 diabetes mellitus with hyperglycemia (ICD-10 - E11.65) [facility] Other 12-01-2023 Evaluation note* Encounter Date Diagnosis Assessment Notes Treatment Notes Treatment Clinical Notes Oct, Facet arthritis of lumbar region (ICD-10 - M46.96) [facility] Other 12-01-2023 History general Narrative - Reported* [...] Medical History [facility] Medical History 04/28/2022 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 failure w/hypoxia, acute on systolic chronic HF Medical History [facility]- r ight great toe bleeding (not stopping) Medical History pneumonia-[facility] 06-05 Medical History [facility]-7-2023 Medical History [id number]-[facility] Surgical History Cardiac catherization (07/2010) Surgical History AICD insertion (11/2010) Surgical History right sided heart cath - [facility] 10/2013 Surgical History appendectomy Surgical History rt [...] Hospitalization History rt. heart cath Rex Stout- [facility] 05/11/16 Hospitalization History Water retention/ [facility] 02/2017 Hospitalization History Observ[facility] 11/2017 Hospitalization History INFECTION IN LEFT SMALL TOE AND FOOT 11/2018 Hospitalization History [facility] -- ICU -- COPD, SMAL L WOUND ON LEFT FOOT 12/2019 Hospitalization History COPD [facility] [place] 12/2019 Hospitalization History Ankle wound 01/2020 Hospitalization History COVID 11/2020 Hospitalization History A-FIB, CHF, KIDNEY ISSUE S 03/2021 [place] [facility] [place] Hospitalization History [facility] discha rged 03-27-2023 Hospitalization History [facility] x2 7-2 023 Hospitalization History [facility] 10-2 023 [facility] Other 11-20-2023 Evaluation note* Encounter Date Diagnosis [...] spent on education by Lashell KARIMI, RN [facility] Other 11-16-2023 Evaluation note* Encounter Date Diagnosis [...] able to help patient improve his glycemia. 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 failure w/hypoxia, acute on systolic chronic HF Medical History [facility]- r ight great toe bleeding (not stopping) Medical History pneumonia-[facility] 06-05 Medical History [facility]-7-2023 Medical History [id number]-[facility] Surgical History Cardiac catherization (07/2010) Surgical History AICD insertion (11/2010) Surgical History right sided heart cath - [facility] 10/2013 Surgical History appendectomy Surgical History rt [...] Hospitalization History rt. heart cath Rex Stout- [facility] 05/11/16 Hospitalization History Water retention/ [facility] 02/2017 Hospitalization History [facility] 11/2017 Hospitalization History INFECTION IN LEFT SMALL TOE AND FOOT 11/2018 Hospitalization History [facility] -- ICU -- COPD, SMAL L WOUND ON LEFT FOOT 12/2019 Hospitalization History COPD [facility] [place] 12/2019 Hospitalization History Ankle wound 01/2020 Hospitalization History COVID 11/2020 Hospitalization History A-FIB, CHF, KIDNEY ISSUE S 03/2021 [place] [facility] [place] Hospitalization History [facility] discha rged 03-27-2023 Hospitalization History [facility] x2 7-2 023 Hospitalization History [facility] 10-2 023 [facility] Other 11-03-2023 NoteUT Cardiology - [facility] Subjective Adwoa Porter is a 68 y.o. year old male patient being seen for Follow-up and Congestive Heart Failure Patient Active Problem List Diagnosis Anxiety state Atrial fibrillation ([facility]/HCC) Chronic obstructive lung disease ([facility]/HCC) Chronic systolic congestive heart failure ([facility]/HCC) Conduction disorder of the heart Atherosclerosis of [place] coronary artery of [place] heart without angina pectoris Type 2 diabetes mellitus with diabetic peripheral angiopathy without gangrene, with long-term current use of insulin ([facility]/HCC) Dyspnea Mixed hyperlipidemia Implantable cardioverter-defibrillator (ICD) in situ Obesity Palpitations Paroxysmal ventricular tachycardia (CMS/HCC) Raised prostate specific antigen Renal function test abnormal Uncontrolled type 2 diabetes mellitus Upper respiratory infection Stage 3b chronic kidney disease (CMS/HCC) ISAK on CPAP PVD (peripheral vascular disease) ([facility]/HCC) Osteomyelitis of left foot ([facility]/HCC) Open wound of finger Cellulitis of left upper extremity Abdominal tenderness Acute on chronic respiratory failure (CMS/HCC) Benign prostatic hyperplasia with urinary obstruction Cardiomyopathy, ischemic Former smoker Heart murmur Incomplete emptying of bladder Increased frequency of urination Nocturia Urethral stricture Urge incontinence of urine Urinary urgency Type 2 diabetes mellitus without complication (CMS/HCC) Bilateral lower extremity edema Abrasion of leg, right Acute worsening of stage 3 chronic kidney disease (CMS/HCC) Bleeding disorder (CMS/HCC) Anemia of chronic renal failure Chronic ulcer of great toe of right foot with fat layer exposed (CMS/HCC) Diabetes mellitus (CMS/HCC) Essential hypertension History of amputation of left great toe (CMS/HCC) History of amputation of lesser toe of left foot ([facility]/HCC) [facility] (current) use of anticoagulants Iron deficiency anemia Hyperglycemia due to type 2 diabetes mellitus ([facility]/HCC) Family History Problem Relation Name Age of Onset Diabetes Mother Hypertension Mother Coronary artery disease Mother Social History Tobacco Use Smoking status: Every Day Types: Cigarettes Passive exposure: Never Smokeless tobacco: Never Vaping Use Vaping Use: Never used Substance Use Topics Alcohol use: Never Drug use: Not Currently HPI Adwoa is seen in follow up. He is a 68 yo man with complex medical history. 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 He was recently admitted to [facility] in August 2023 with acute respiratory failure and ?RSV infection. He was febrile. He had also decompensated heart failure. He was managed accordingly. He was diuresed. He did well and recovered. Vascular surgery were consulted for possible amputation of great toe. X-ray was done which showed subluxation of 1st interphalangeal joint with no evidence of osteomyelitis. On 09/03 CHARO was performed. No acute intervention indicated by vascular surgery. Today he reports that he has feeling great. He has no significant shortness of breath at rest. He recovered at the retirement facility but he is now back home. No chest pain. His leg swelling has significantly improved. He does not feel palpitations. Review of Systems All other systems reviewed and are negative. Objective Visit Vitals BP 110/60 (BP Location: Left arm, Patient Position: Sitting, BP Cuff Size: Adult) Pulse 85 Resp 12 Ht 1.753 m (5' 9 ) Wt 84.8 kg (187 lb) SpO2 99% BMI 27.62 kg/m??? Smoking Status Every Day BSA 2.03 m??? Physical Exam Constitutional: Appearance: He is well-developed. He is not ill-appearing. HENT: Head: Normocephalic and atraumatic. Nose: Nose normal. Eyes: General: No scleral icterus. Pupils: Pupils are equal, round, and reactive to light. Neck: Thyroid: No thyromegaly. Vascular: No JVD. Cardiovascular: Rate and Rhythm: Normal rate and regular rhythm. Pulses: Radial pulses are 2+ on the right side and 2+ on the left side. Heart sounds: Normal heart sounds. No murmur heard. No friction rub. No gallop. Pulmonary: Effort: Pulmonary effort is normal. No respiratory distress. Breath sounds: Normal breath sounds. No wheezing or rales. Chest: Chest wall: No tenderness. Abdominal: General: Bowel sounds are normal. There is no distension. 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 failure w/hypoxia, acute on systolic chronic HF Medical History [facility]- r ight great toe bleeding (not stopping) Medical History pneumonia-[facility] 06-05 Medical History [facility]-7-2023 Medical History [id number]-[facility] Surgical History Cardiac catherization (07/2010) Surgical History AICD insertion (11/2010) Surgical History right sided heart cath - [facility] 10/2013 Surgical History appendectomy Surgical History rt [...] Hospitalization History rt. heart cath Rex Stout- [facility] 05/11/16 Hospitalization History Water retention/ [facility] 02/2017 Hospitalization History [facility] 11/2017 Hospitalization History INFECTION IN LEFT SMALL TOE AND FOOT 11/2018 Hospitalization History [facility] -- ICU -- COPD, SMAL L WOUND ON LEFT FOOT 12/2019 Hospitalization History COPD [facility] [place] 12/2019 Hospitalization History Ankle wound 01/2020 Hospitalization History COVID 11/2020 Hospitalization History A-FIB, CHF, KIDNEY ISSUE S 03/2021 [place] [facility] [place] Hospitalization History [facility] discha rged 03-27-2023 Hospitalization History [facility] x2 7-2 023 Hospitalization History [facility] 10-2 023 [facility] Other 10-31-2023 Evaluation note* Encounter Date Diagnosis Assessment Notes Treatment Notes Treatment Clinical Notes Aug, Vitamin D deficiency (ICD-10 - E55.9) sees NEPHRO Aug, Type 2 diabetes mellitus with hyperglycemia (ICD-10 - E11.65) Ranulfo-Alejandro, Doris 09/18/2023 02:24:28 PM >BG 91 given 4 [...] (hypertension) (ICD-10 - I10) reasonable today Aug, [facility] current use of insulin (ICD-10 - Z79.4) Aug, Vitamin B 12 deficiency (ICD-10 - E53.8) Aug, CKD (chronic kidney disease) stage 3, GFR 30-59 ml/min (ICD-10 - N18.3) keep f/u with nephrology Aug, Type 2 diabetes mellitus with diabetic neuropathy, unspecified (ICD-10 - E11.40) Aug, BMI 32.0-32.9,adult (ICD-10 - Z68.32) [facility] Other 10-31-2023 History general Narrative - Reported* [...] Medical History [facility] Medical History 04/28/2022 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 failure w/hypoxia, acute on systolic chronic HF Medical History [facility]- r ight great toe bleeding (not stopping) Medical History pneumonia-[facility] 06-05 Medical History [facility]-7-2023 Medical History [id number]-[facility] Surgical History Cardiac catherization (07/2010) Surgical [...] Hospitalization History rt. heart cath Rex Stout- [facility] 05/11/16 Hospitalization History Water retention/ [facility] 02/2017 Hospitalization History [facility] 11/2017 Hospitalization History INFECTION IN LEFT SMALL TOE AND FOOT 11/2018 Hospitalization History [facility] -- ICU -- COPD, SMAL L WOUND ON LEFT FOOT 12/2019 Hospitalization History COPD [facility] [place] 12/2019 Hospitalization History Ankle wound 01/2020 Hospitalization History COVID 11/2020 Hospitalization History A-FIB, CHF, KIDNEY ISSUE S 03/2021 [place] [facility] [place] Hospitalization History [facility] discha rged 03-27-2023 Hospitalization History [facility] x2 7-2 023 Hospitalization History [facility] 10-2 023 [employer] [facility] [employer] Other 10-30-2023 Evaluation note* Encounter Date Diagnosis Assessment Notes Treatment Notes Treatment Clinical Notes Aug, Facet arthritis of lumbar region (ICD-10 - M46.96) [employer] [facility] [employer] Other 10-13-2023 History general Narrative - Reported* Type Description Date Medical History Triple vessel CAD Medical History ischemic cardiomyopa thy with ejection fraction 10-15% Medical History Cardiac arrythmias with insertio n of AICD device Medical History hypertension Medical History hyperlipidemia Medical History NIDDM Medical History COPD Medical History nicotine dependence Medical History cervical spinal stenosis Medical History hoarseness - mass removed by Dr. 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 failure w/hypoxia, COPD excacerbation [facility] Medical History 04/28/2022-Sepsis sec ./ Para influenza PNA multifocal-[facility] Medical History 05/08/2022-Increasing shortness of breath post recent Dx w/covid-19 Medical History 06/13/2022-Severe sep sis to Multifocal PNA, acute on chronic resp. failure w/hypoxia, acute on systolic chronic HF Medical History [facility]- r ight great toe bleeding (not stopping) Medical History pneumonia-[facility] 06-05 Medical History [facility]-7-2023 Surgical History Cardiac catherization (07/2010) Surgical [...] Hospitalization History rt. heart cath Rex Stout- [facility] 05/11/16 Hospitalization History Water retention/ [facility] 02/2017 Hospitalization History [facility]ation-[facility] 11/2017 Hospitalization History INFECTION IN LEFT SMALL TOE AND FOOT 11/2018 Hospitalization History [facility] -- ICU -- COPD, SMAL L WOUND ON LEFT FOOT 12/2019 Hospitalization History COPD [facility] [place] 12/2019 Hospitalization History Ankle wound 01/2020 Hospitalization History COVID 11/2020 Hospitalization History A-FIB, CHF, KIDNEY ISSUE S 03/2021 [place] [facility] [place] Hospitalization History [facility] discha rged 03-27-2023 Hospitalization History [facility] x2 7-2 023 [facility] Other 10-12-2023 History general Narrative - Reported* [...] Medical History [facility] Medical History 04/28/2022 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 failure w/hypoxia, acute on systolic chronic HF Medical History [facility]- r ight great toe bleeding (not stopping) Medical History pneumonia-[facility] 06-05 Medical History [facility]-7-2023 Surgical History Cardiac catherization (07/2010) Surgical [...] Hospitalization History rt. heart cath Rex Stout- [facility] 05/11/16 Hospitalization History Water retention/ [facility] 02/2017 Hospitalization History [facility]ation-[facility] 11/2017 Hospitalization History INFECTION IN LEFT SMALL TOE AND FOOT 11/2018 Hospitalization History [facility] -- ICU -- COPD, SMAL L WOUND ON LEFT FOOT 12/2019 Hospitalization History COPD [facility] [place] 12/2019 Hospitalization History Ankle wound 01/2020 Hospitalization History COVID 11/2020 Hospitalization History A-FIB, CHF, KIDNEY ISSUE S 03/2021 [place] [facility] [place] Hospitalization History [facility] discha rged 03-27-2023 Hospitalization History [facility] x2 7-2 023 [facility] 10-05-[facility] NotePatient here for follow up TB discharge yesterday for HFrEF. His girlfriend called the office yesterday when he was being discharged to make us aware that he's still very swollen and SOB. He is down 12# from his office visit last week with Cecile Watson. Patient is c/o wheezing and is requesting something for cough. Review of Systems Constitutional: Positive for weight loss (12# since 08/15/2023). Cardiovascular: Positive for dyspnea on exertion and leg swelling. Respiratory: Positive for cough, shortness of breath and wheezing. Hematologic/Lymphatic: Bruises/bleeds easily. Skin: Positive for color change, dry skin and poor wound healing. Musculoskeletal: Positive for back pain, joint pain, joint swelling and muscle weakness. Gastrointestinal: Positive for abdominal pain. Neurological: Positive for loss of balance and weakness. All other systems reviewed and are negative.[facility] 08-23-2023 NoteCardiovascular Medicine [facility] SUBJECTIVE Chief Complaint Patient presents with Wheezing Hospital Follow-up Adwoa Porter is a 68 y.o. male here for follow-up. Congestive Heart Failure His past medical history is significant for CAD. Coronary Artery Disease His past medical history is significant for CHF. Adwoa Porter is a 67 y.o. 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 Patient here for follow up [facility] discharge yesterday for HFrEF. His girlfriend called the office yesterday when he was being discharged to make us aware that he's still very swollen and SOB. He is down 12# from his office visit last week with Cecile Watson. Patient is c/o wheezing and is requesting something for cough. 08/23/2023 He was recently admitted to [facility] for acute on chronic HFrEF exacerbation and he was discharged yesterday. He lost 11lbs during his admission. His lasix was changed to bumex 2mg BID. He c/o wheezing that feels like is worsening along with worsening orthopnea. His leg swelling is improved and his ELKINS feels improved. He c/o weakness. Denies CP, palpitations, dizziness. His son Alexey accompanied him today. Patient Active Problem List Diagnosis Anxiety state Atrial fibrillation (CMS/HCC) Chronic obstructive lung disease (CMS/HCC) Chronic systolic congestive heart failure (CMS/HCC) Conduction disorder of the heart Atherosclerosis of [place] coronary artery of [place] heart without angina pectoris Type 2 diabetes mellitus with diabetic peripheral angiopathy without gangrene, with long-term current use of insulin (CMS/HCC) Dyspnea Mixed hyperlipidemia Implantable cardioverter-defibrillator (ICD) in situ Obesity Palpitations Paroxysmal ventricular tachycardia (CMS/HCC) Raised prostate specific antigen Renal function test abnormal Uncontrolled type 2 diabetes mellitus Upper respiratory infection Stage 3b chronic kidney disease (CMS/HCC) ISAK on CPAP PVD (peripheral vascular disease) (CMS/HCC) Osteomyelitis of left foot (CMS/HCC) Open wound of finger Cellulitis of left upper extremity Abdominal tenderness Acute on chronic respiratory failure (CMS/HCC) Benign prostatic hyperplasia with urinary obstruction Cardiomyopathy, ischemic Former smoker Heart murmur Incomplete emptying of bladder Increased frequency of urination Nocturia Urethral stricture Urge incontinence of urine Urinary urgency Type 2 diabetes mellitus without complication (CMS/HCC) Bilateral lower extremity edema Abrasion of leg, right Acute worsening of stage 3 chronic kidney disease (CMS/HCC) Bleeding disorder (CMS/HCC) Anemia of chronic renal failure Chronic ulcer of great toe of right foot with fat layer exposed (CMS/HCC) Diabetes mellitus (CMS/HCC) Essential hypertension History of amputation of left great toe (CMS/HCC) History of amputation of lesser toe of left foot (CMS/HCC) [facility] (current) use of anticoagulants Iron deficiency anemia Hyperglycemia due to type 2 diabetes mellitus (CMS/HCC) Past Medical History: Diagnosis Date Anxiety Atrial fibrillation (CMS/HCC) Cardiomyopathy (CMS/HCC) CHF (congestive heart failure) (CMS/HCC) Chronic kidney disease COPD (chronic obstructive pulmonary disease) ([facility]) Coronary artery disease Diabetes mellitus ([facility]) High cholesterol Hyperlipidemia Hypertension Family History Problem Relation Name Age of Onset Diabetes Mother Hypertension Mother Coronary artery disease Mother Social History Tobacco Use Smoking status: Every Day Types: Cigarettes Passive exposure: Never Smokeless tobacco: Never Vaping Use Vaping Use: Never used Substance Use Topics Alcohol use: Never Drug use: Not Currently Allergies Allergen Reactions Gabriela Inhibitors ROS Constitutional: Positive for weight loss (12# since 08/15/2023). Cardiovascular: Positive for dyspnea on exertion and leg swelling. Respiratory: Positive for cough, shortness of breath and wheezing. Hematologic/Lymphatic: Bruises/bleeds easily. Skin: Positive for color change, dry skin and poor wound healing. Musculoskeletal: Positive for back pain, joint pain, joint swelling and muscle weakness. Gastrointestinal: Positive for abdominal pain. Neurological: Positive for loss of balance and weakness. All other systems reviewed and are negative. OBJECTIVE Visit Vitals BP 113/61 (BP Location: Left arm, Patient Position: Sitting) Pulse 85 Ht 1.753 m (5' 9 ) Wt (more content not included)...[facility]10-05-2023 Evaluation note* Encounter Date Diagnosis Assessment Notes Treatment Notes Treatment Clinical Notes Aug, Facet arthritis of lumbar region (ICD-10 - M46.96) [facility] Other 09-27-2023 NoteCurrently stable*[facility]09-27-2023 NoteSending for labs today and pt to f/U with Dr Orr as scheduledUnSuburban [facility]-2023 NoteNYHC- III Continue GDMT- ASA, lipitor, coreg, farxiga (attempting pt assistance for cost), digoxin, I sordil, hydralazine, and aldactone Diuretic therapy-Continue lasix 140 mg bid for 1-2 more days and then decrease back to previous dose and he voiced understanding Monitor daily weights, I&O, fluid restriction 1.5-2L/day, renal function and electrolytes- please maintain K+>4 and Mg > 2 Sending pt to lab today for bmp and BNP F/U with nephrology as scheduledUnSuburban [facility]09-27-2023 NoteContinue Coreg- currently stable and no concerning [facility]23 NoteUTP CARDIOLOGY PROGRESS NOTE HPI: Adwoa Porter is a 68 y.o. male here for edema and fluid overload HPI Pt presents clinic with for concerns of increase fluid retention, SOB, leg swelling- states for last [address] 1/[address] Stout had him increase lasix to 140 mg bid and continue metolaxone 2.5 mg daily. States that SOB and swelling is improved but not back to baseline yet. He is worried about kidney function and states he has upcoming appt with Dr Orr - nephrology soon. Denied fever, chills or recent illness. Patient here for follow up lasix increase. Dr. Stout increased it to 140mg bid a few days ago. He has taken 3 doses of this so far and feels so much better. He is unable to afford Farxiga. He was admitted to [facility] last week for hemoptysis. This has subsided. He denies chest pain. SOB and LE edema continue to improve. Review of Systems Constitutional: Positive for weight loss. Cardiovascular: Positive for dyspnea on exertion and leg swelling. Respiratory: Positive for shortness of breath. Skin: Positive for dry skin and poor wound healing. Musculoskeletal: Positive for back pain, joint pain, joint swelling and muscle weakness. Gastrointestinal: Positive for abdominal pain. Neurological: Positive for loss of balance and weakness. All other systems reviewed and are negative. Recent eval in [facility] ED 07/31/23 Visit Vitals BP 121/79 (BP Location: Right arm, Patient Position: Sitting) Pulse 85 Ht 1.753 m (5' 9 ) Wt 96.6 kg (213 lb) SpO2 98% BMI 31.45 kg/m??? Smoking Status Every Day BSA 2.17 m??? Allergies Allergen Reactions Gabriela Inhibitors Medications: Current Outpatient Medications on File Prior to Visit Medication Sig Dispense Refill amitriptyline (Elavil) 25 mg tablet Take 1 tablet by mouth if needed at bedtime. aspirin 81 mg EC tablet Take 81 mg by mouth in the morning. atorvastatin (Lipitor) 80 mg tablet Take 80 mg by mouth at bedtime. carvedilol (Coreg) 25 mg tablet Take 1 tablet (25 mg) by mouth in the morning and at bedtime. 180 tablet 3 cholecalciferol (Vitamin D-3) 50 MCG (2000 UT) tablet Take 2,000 Units by mouth in the morning. cyanocobalamin (Vitamin B-12) 1,000 mcg tablet Take 1 tablet by mouth in the morning. digoxin (Lanoxin) 125 MCG tablet Take 1 tablet by mouth in the morning. dulaglutide (Trulicity) 0.75 mg/0.5 mL pen injector Inject 0.75 mg under the skin 1 (one) time per week. ferrous sulfate 325 (65 Fe) MG tablet Take 1 tablet by mouth in the morning. furosemide (Lasix) 80 mg tablet Take 1 tablet (80 mg) by mouth in the morning. 80mg in the AM, 40mg in the PM (Patient taking differently: Take 140 mg by mouth in the morning and at bedtime.) 135 tablet 3 gabapentin (Neurontin) 400 mg capsule Take 1 capsule by mouth in the morning and at bedtime. hydrALAZINE (Apresoline) 50 mg tablet Take 1 tablet by mouth with breakfast, with lunch, and with evening meal. HYDROcodone-acetaminophen ([place]) 5-325 mg tablet Take 1 tablet by mouth every 8 (eight) hours if needed. insulin lispro (HumaLOG) 200 unit/mL (3 mL) insulin pen pen Inject 40 Units under the skin. isosorbide dinitrate (Isordil) 20 mg tablet Take 1 tablet (20 mg) by mouth in the morning and at bedtime. 180 tablet 3 metOLazone (Zaroxolyn) 2.5 mg tablet Take 1 tablet (2.5 mg) by mouth every 7 (seven) days. 12 tablet 1 nitroglycerin (Nitrostat) 0.4 mg SL tablet DISSOLVE 1 TABLET UNDER THE TONGUE NEEDED FOR CHEST PAIN- MAY REPEAT EVERY 5 MINUTES IF NEEDED ( MAX 3 DOSES.- IF NO RELIEF CALL 911) potassium chloride CR (Klor-Con M10) 10 mEq ER tablet Take 20 mEq by mouth in the morning and at bedtime. Do not crush or chew. spironolactone (Aldactone) 25 mg tablet Take 1 tablet (25 mg) by mouth in the morning. 90 tablet 3 warfarin sodium (WARFARIN ORAL) 2.5 mg with evening meal. 5 mg on Tuesdays & 2.5 mg on Sundays, Mondays, Wednesdays, Fridays, & Saturdays dapagliflozin (Farxiga) 10 mg Take 1 tablet (10 mg) by mouth once daily as directed. (Patient not taking: Reported on 08/15/2023) 90 tablet 2 furosemide (Lasix) 20 mg tablet Take 3 tablets (60 mg) by mouth once daily in the evening. 270 tablet 3 [DISCONTINUED] amoxicillin-pot clavulanate (Augmentin) 250-125 mg tablet Take by mouth. No current facility-administered medications on file prior to visit. Physical Exam: Constitutional: Appearance: Normal appearance. Without apparent distress, obese, chronically ill HENT: Head: Normocephalic and atraumatic. Nose: Nose normal. Mouth/Throat: Mouth: Mucous membranes are moist. Eyes: Extraocular Movements: Extraocular movements intact. Conjunctiva/sclera: Conjunctivae normal. Neck: Vascular: + JVD. Cardiovascular: Rate and Rhythm: Normal rate and regular rhythm. Pulses: Posterior tibial pulses are 3 on the right side and 3 on the left side. Heart sounds: Normal heart sounds, S1 normal and S2 normal. Pulmonary: Effort: Pulmonary effo (more content not included)...[facility]09-27-2023 NotePatient here for follow up lasix increase. Dr. Stout increased it to 140mg bid a few days ago. He has taken 3 doses of this so far and feels so much better. He is unable to afford Farxiga. He was admitted to [facility] last week for hemoptysis. This has subsided. He denies chest pain. SOB and LE edema continue to improve. Review of Systems Constitutional: Positive for weight loss. Cardiovascular: Positive for dyspnea on exertion and leg swelling. Respiratory: Positive for shortness of breath. Skin: Positive for dry skin and poor wound healing. Musculoskeletal: Positive for back pain, joint pain, joint swelling and muscle weakness. Gastrointestinal: Positive for abdominal pain. Neurological: Positive for loss of balance and weakness. 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 failure w/hypoxia, acute on systolic chronic HF Medical History [facility]- r ight great toe bleeding (not stopping) Medical History pneumonia-[facility] 06-05 Medical History [facility]-7-2023 Surgical History Cardiac catherization (07/2010) Surgical History AICD insertion (11/2010) Surgical History right sided heart cath - [facility] 10/2013 Surgical History appendectomy Surgical History rt [...] Hospitalization History rt. heart cath Rex Stout- [facility] 05/11/16 Hospitalization History Water retention/ [facility] 02/2017 Hospitalization History Observation[facility] 11/2017 Hospitalization History INFECTION IN LEFT SMALL TOE AND FOOT 11/2018 Hospitalization History [facility] -- ICU -- COPD, SMAL L WOUND ON LEFT FOOT 12/2019 Hospitalization History COPD [facility] [place] 12/2019 Hospitalization History Ankle wound 01/2020 Hospitalization History COVID 11/2020 Hospitalization History A-FIB, CHF, KIDNEY ISSUE S 03/2021 [place] [facility] [place] Hospitalization History [facility] discha rged 03-27-2023 Hospitalization History [facility] x2 [id number] [facility] Other 09-08-2023 Evaluation note* Encounter Date Diagnosis Assessment Notes Treatment Notes Treatment Clinical Notes Jul, Acute cough (ICD-10 - R05.1) [facility] Other 09-08-2023 History general Narrative - Reported* [...] Medical History [facility] Medical History 04/28/2022 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 failure w/hypoxia, acute on systolic chronic HF Medical History [facility]- r ight great toe bleeding (not stopping) Medical History pneumonia-[facility] 06-05 Medical History [facility]-7-2023 Surgical History Cardiac catherization (07/2010) Surgical [...] Hospitalization History rt. heart cath Rex Stout- [facility] 05/11/16 Hospitalization History Water retention/ [facility] 02/2017 Hospitalization History [facility] 11/2017 Hospitalization History INFECTION IN LEFT SMALL TOE AND FOOT 11/2018 Hospitalization History [facility] -- ICU -- COPD, SMAL L WOUND ON LEFT FOOT 12/2019 Hospitalization History COPD [facility] [place] 12/2019 Hospitalization History Ankle wound 01/2020 Hospitalization History COVID 11/2020 Hospitalization History A-FIB, CHF, KIDNEY ISSUE S 03/2021 [place] [facility] [place] Hospitalization History [facility] discha rged 03-27-2023 Hospitalization History [facility] x2 [id number] [facility] Other 09-01-2023 Evaluation note* Encounter Date Diagnosis Assessment Notes Treatment Notes Treatment Clinical Notes Jul, Facet arthritis of lumbar region (ICD-10 - M46.96) [facility] Other 09-01-2023 History general Narrative - Reported* [...] Medical History [facility] Medical History 04/28/2022 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 failure w/hypoxia, acute on systolic chronic HF Medical History [facility]- r ight great toe bleeding (not stopping) Medical History pneumonia-[facility] 06-05 Medical History [facility]-7-2023 Surgical History Cardiac catherization (07/2010) Surgical History AICD insertion (11/2010) Surgical History right sided heart cath - [facility] 10/2013 Surgical History appendectomy Surgical History rt [...] Hospitalization History rt. heart cath Rex Stout- [facility] 05/11/16 Hospitalization History Water retention/ [facility] 02/2017 Hospitalization History [facility] 11/2017 Hospitalization History INFECTION IN LEFT SMALL TOE AND FOOT 11/2018 Hospitalization History [facility] -- ICU -- COPD, SMAL L WOUND ON LEFT FOOT 12/2019 Hospitalization History COPD [facility] [place] 12/2019 Hospitalization History Ankle wound 01/2020 Hospitalization History COVID 11/2020 Hospitalization History A-FIB, CHF, KIDNEY ISSUE S 03/2021 [place] [facility] [place] Hospitalization History [facility] discha rged 03-27-2023 Hospitalization History [facility] x2 [id number] [facility] Other 08-31-2023 Evaluation note* Encounter Date Diagnosis Assessment Notes Treatment Notes Treatment Clinical Notes Jun, Chronic systolic congestive heart failure (ICD-10 - I50.22) [facility] Other 08-24-2023 History general Narrative - Reported* [...] Medical History [facility] Medical History 04/28/2022 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 failure w/hypoxia, acute on systolic chronic HF Medical History [facility]- r ight great toe bleeding (not stopping) Medical History pneumonia-[facility] 06-05 Medical History [facility]-7-2023 Surgical History Cardiac catherization (07/2010) Surgical History AICD insertion (11/2010) Surgical History right sided heart cath - [facility] 10/2013 Surgical History appendectomy Surgical History rt heart cath 05/11/16 Surgical History pacemaker 07/2016 Surgical History SKIN GRAFT-FROM LEFT LEG TO LEF T FOOT 10/2018 Surgical History LEFT SMALL TOE AMPUTATION WITH SOME FOOT BONE 11/2018 Surgical History COLONOSCOPY AND EGD [facility] Surgical History amputation left fifth toe Surgical History Ankle I/D LEFT 01/2020 Surgical History Left heel skin graft 03/29/2020 Surgical History SKIN GRAFT TO LEFT FOOT 03/2020 Surgical History CATARACT REMOVED ON RIGHT EYE Surgical History CATARACT REMOVED FROM LEFT EYE 06/2021 Hospitalization History see surgical hx Hospitalization History rt. heart cath Rex Stout- [facility] 05/11/16 Hospitalization History Water retention/ [facility] 02/2017 Hospitalization History [facility] 11/2017 Hospitalization History INFECTION IN LEFT SMALL TOE AND FOOT 11/2018 Hospitalization History [facility] -- ICU -- COPD, SMAL L WOUND ON LEFT FOOT 12/2019 Hospitalization History COPD [facility] [place] 12/2019 Hospitalization History Ankle wound 01/2020 Hospitalization History COVID 11/2020 Hospitalization History A-FIB, CHF, KIDNEY ISSUE S 03/2021 [place] [facility] [place] Hospitalization History [facility] discha rged 03-27-2023 Hospitalization History [facility] x2 [id number] [facility] Other 08-11-2023 Evaluation note* Encounter Date Diagnosis [...] of this is related to diabetic neuropathy [facility] Other 08-11-2023 Evaluation note* Encounter Date Diagnosis [...] (hypertension) (ICD-10 - I10) reasonable today Jun, [facility] current use of insulin (ICD-10 - Z79.4) Jun, Vitamin B 12 deficiency (ICD-10 - E53.8) Jun, CKD (chronic kidney disease) stage 3, GFR 30-59 ml/min (ICD-10 - N18.3) keep f/u with nephrology Jun, Type 2 diabetes mellitus with diabetic neuropathy, unspecified (ICD-10 - E11.40) Jun, BMI 32.0-32.9,adult (ICD-10 - Z68.32) [facility] Other 08-11-2023 History general Narrative - Reported* [...] Medical History [facility] Medical History 04/28/2022 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 failure w/hypoxia, acute on systolic chronic HF Medical History [facility]- r ight great toe bleeding (not stopping) Medical History pneumonia-[facility] 06-05 Medical History [facility]-7-2023 Surgical History Cardiac catherization (07/2010) Surgical History AICD insertion (11/2010) Surgical History right sided heart cath - [facility] 10/2013 Surgical History appendectomy Surgical History rt [...] Hospitalization History rt. heart cath Rex Stout- [facility] 05/11/16 Hospitalization History Water retention/ [facility] 02/2017 Hospitalization History [facility] 11/2017 Hospitalization History INFECTION IN LEFT SMALL TOE AND FOOT 11/2018 Hospitalization History [facility] -- ICU -- COPD, SMAL L WOUND ON LEFT FOOT 12/2019 Hospitalization History COPD [facility] [place] 12/2019 Hospitalization History Ankle wound 01/2020 Hospitalization History COVID 11/2020 Hospitalization History A-FIB, CHF, KIDNEY ISSUE S 03/2021 [place] [facility] [place] Hospitalization History [facility] discha rged 03-27-2023 Hospitalization History [facility] x2 [id number] [facility] Other 07-31-2023 Evaluation note* Encounter Date Diagnosis [...] not be able to stay at home [facility] Other 07-31-2023 History general Narrative - Reported* [...] Medical History [facility] Medical History 04/28/2022 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 failure w/hypoxia, acute on systolic chronic HF Medical History [facility]- r ight great toe bleeding (not stopping) [...] Hospitalization History rt. heart cath Rex Stout- [facility] 05/11/16 Hospitalization History Water retention/ [facility] 02/2017 Hospitalization History [facility] 11/2017 Hospitalization History INFECTION IN LEFT SMALL TOE AND FOOT 11/2018 Hospitalization History [facility] -- ICU -- COPD, SMAL L WOUND ON LEFT FOOT 12/2019 Hospitalization History COPD [facility] [place] 12/2019 Hospitalization History Ankle wound 01/2020 Hospitalization History COVID 11/2020 Hospitalization History A-FIB, CHF, KIDNEY ISSUE S 03/2021 [place] [facility] [place] Hospitalization History [facility] discha rged 03-27-2023 [facility] Other 07-18-2023 NoteUT Cardiology - [facility] Subjective Adwoa Porter is a 67 y.o. year old male patient being seen for Follow-up Patient Active Problem List Diagnosis Anxiety state Atrial fibrillation (CMS/HCC) Chronic obstructive lung disease (CMS/HCC) Chronic systolic congestive heart failure (CMS/HCC) Conduction disorder of the heart Atherosclerosis of [place] coronary artery of [place] heart without angina pectoris Type 2 diabetes mellitus with diabetic peripheral angiopathy without gangrene, with long-term current use of insulin (CMS/HCC) Dyspnea Mixed hyperlipidemia Implantable cardioverter-defibrillator (ICD) in situ Obesity Palpitations Paroxysmal ventricular tachycardia (CMS/HCC) Raised prostate specific antigen Renal function test abnormal Uncontrolled type 2 diabetes mellitus Upper respiratory infection Stage 3b chronic kidney disease (CMS/HCC) ISAK on CPAP PVD (peripheral vascular disease) ([facility]) Osteomyelitis of left foot ([facility]) Open wound of finger Cellulitis of left upper extremity Abdominal tenderness Acute on chronic respiratory failure ([facility]) Benign prostatic hyperplasia with urinary obstruction Cardiomyopathy, ischemic Former smoker Heart murmur Incomplete emptying of bladder Increased frequency of urination Nocturia Urethral stricture Urge incontinence of urine Urinary urgency Type 2 diabetes mellitus without complication ([facility]) Family History Problem Relation Name Age of Onset Diabetes Mother Hypertension Mother Coronary artery disease Mother Social History Tobacco Use Smoking status: Every Day Types: Cigarettes Passive exposure: Never Smokeless tobacco: Never Vaping Use Vaping Use: Never used Substance Use Topics Alcohol use: Never Drug use: Not Currently HPI Adwoa is seen in follow-up after recent admission to the [facility] with decompensated heart failure. He underwent diuresis with good response. Today he reports that he has been doing well. He has lost around 30 pounds since his last visit with 01/05/2023. On discharge from the hospital he was shifted from Bumex to Lasix as he responded better to Lasix. He is recovering from the hospitalization pretty well. He still has shortness of breath on exertion, NYHA class III. No significant lower extremity edema. No palpitations. No dizziness or lightheadedness. 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 Since last visit with us he was admitted to the [facility] twice with decompensated heart failure. Last admission was few days ago and he was discharged yesterday. He was diuresed. His bumetanide was changed to Lasix. He was also treated with antibiotics. He is currently on Lasix 80 mg twice daily, spironolactone 25 mg once daily, metolazone 2.5 mg once daily, and potassium chloride 20 mEq twice daily. Since discharged, he says that he feels that he is starting to accumulate lower extremity edema. His main issue is also falling a lot. He is worried about falls. He has injured himself in the forehead and in the left arm. He has a lot of ecchymosis in the arms. He is in NYHA class III symptoms. Review of Systems Constitutional: Positive for weight loss. Cardiovascular: Positive for leg swelling. Respiratory: Positive for shortness of breath. Skin: Positive for dry skin and poor wound healing. Musculoskeletal: Positive for back pain, joint pain and joint swelling. Gastrointestinal: Positive for abdominal pain. Neurological: Positive for loss of balance. All other systems reviewed and are negative. Objective Visit Vitals BP 108/67 (BP Location: Left arm, Patient Position: Sitting, BP Cuff Size: Large adult) Pulse 85 Ht 1.753 m (5' 9 ) Wt 94.6 kg (208 lb 9.6 oz) SpO2 90% BMI 30.80 kg/m??? Smoking Status Every Day BSA 2.15 m??? Physical Exam Constitutional: Appearance: He is well-developed. He is not ill-appearing. HENT: Head: Normocephalic and atraumatic. Nose: Nose normal. Eyes: General: No scleral icterus. Pupils: Pupils are equal, round, and reactive to light. Neck: Thyroid: No thyromegaly. Vascular: No JVD. Cardiovascular: Rate and Rhythm: Normal rate and regular rhythm. Pulses: Radial pulses are 2+ on the right side and 2+ on the left side. Heart sounds: Normal heart sounds. No murmur heard. No friction rub. No gallop. 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 failure w/hypoxia, acute on systolic chronic HF Medical History [facility]- r ight great toe bleeding (not stopping) [...] Hospitalization History rt. heart cath Rex Stout- [facility] 05/11/16 Hospitalization History Water retention/ [facility] 02/2017 Hospitalization History [facility] 11/2017 Hospitalization History INFECTION IN LEFT SMALL TOE AND FOOT 11/2018 Hospitalization History [facility] -- ICU -- COPD, SMAL L WOUND ON LEFT FOOT 12/2019 Hospitalization History COPD [facility] [place] 12/2019 Hospitalization History Ankle wound 01/2020 Hospitalization History COVID 11/2020 Hospitalization History A-FIB, CHF, KIDNEY ISSUE S 03/2021 [place] [facility] [place] Hospitalization History [facility] discha rged 03-27-2023 [facility] Other 2023 History general Narrative - Reported* [...] Medical History [facility] Medical History 04/28/2022 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 failure w/hypoxia, acute on systolic chronic HF Medical History [facility]- r ight great toe bleeding (not stopping) Surgical History Cardiac catherization (07/2010) Surgical History AICD insertion (11/2010) Surgical History right sided heart cath - [facility] 10/2013 Surgical History appendectomy Surgical History rt [...] Hospitalization History rt. heart cath Rex Stout- [facility] 05/11/16 Hospitalization History Water retention/ [facility] 02/2017 Hospitalization History [facility] 11/2017 Hospitalization History INFECTION IN LEFT SMALL TOE AND FOOT 11/2018 Hospitalization History [facility] -- ICU -- COPD, SMAL L WOUND ON LEFT FOOT 12/2019 Hospitalization History COPD [facility] [place] 12/2019 Hospitalization History Ankle wound 01/2020 Hospitalization History COVID 11/2020 Hospitalization History A-FIB, CHF, KIDNEY ISSUE S 03/2021 [place] [facility] [place] Hospitalization History [facility] discha rged 03-27-2023 [facility] Other 06-14-2023 Evaluation note* Encounter Date Diagnosis [...] sensors on. He was given 6 grif residential life director to assist him with wearing the device. 45 minutes were spent evaluating the patient's report and discussing its findings with the patient by Shaw Rondon RN, [facility]. [facility] Other 06-01-2023 Evaluation note* Encounter Date Diagnosis [...] leukocytosis and currently follows with a hematology. [facility] Other 06-01-2023 Evaluation note* Encounter Date Diagnosis [...] understanding and is agreeable with treatment plan. [facility] Other 05-31-2023 Evaluation note* Encounter Date Diagnosis Assessment Notes Treatment Notes Treatment Clinical Notes March, Facet arthritis of lumbar region (ICD-10 - M46.96) [facility] Other 05-15-2023 History general Narrative - Reported* [...] Medical History [facility] Medical History 04/28/2022 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 failure w/hypoxia, COPD excacerbation [facility] Medical History 04/28/2022-Sepsis sec ./ Para influenza PNA multifocal-[facility] Medical History 05/08/2022-Increasing shortness of breath post [...] Hospitalization History rt. heart cath Rex Stout- [facility] 05/11/16 Hospitalization History Water retention/ [facility] 02/2017 Hospitalization History [facility] 11/2017 Hospitalization History INFECTION IN LEFT SMALL TOE AND FOOT 11/2018 Hospitalization History [facility] -- ICU -- COPD, SMAL L WOUND ON LEFT FOOT 12/2019 Hospitalization History COPD [facility] [place] 12/2019 Hospitalization History Ankle wound 01/2020 Hospitalization History COVID 11/2020 Hospitalization History A-FIB, CHF, KIDNEY ISSUE S 03/2021 [place] [facility] [place] [facility] Other 05-03-2023 NoteCardiology Clinic Note Subjective Adwoa Porter is a 67 y.o. year old male patient with multiple comorbidities including permanent atrial fibrillation on warfarin, systolic heart failure status post ICD, COPD, coronary artery disease, and stage III kidney disease seen in follow-up. He presents with daughter today, reports he has overall been doing well. He has lost 11 pounds since his last visit. His dyspnea and lower extremity edema have resolved. Denies chest pain, or palpitations. Patient Active Problem List Diagnosis Anxiety state Atrial fibrillation (CMS/HCC) Chronic obstructive lung disease (CMS/HCC) Chronic systolic congestive heart failure (CMS/HCC) Conduction disorder of the heart Atherosclerosis of [place] coronary artery of [place] heart without angina pectoris Type 2 diabetes mellitus with diabetic peripheral angiopathy without gangrene, with long-term current use of insulin (CMS/HCC) Dyspnea Mixed hyperlipidemia Implantable cardioverter-defibrillator (ICD) in situ Obesity Palpitations Paroxysmal ventricular tachycardia (CMS/HCC) Raised prostate specific antigen Renal function test abnormal Uncontrolled type 2 diabetes mellitus Upper respiratory infection Stage 3b chronic kidney disease (CMS/HCC) ISAK on CPAP PVD (peripheral vascular disease) (CMS/HCC) Osteomyelitis of left foot (CMS/HCC) Open wound of finger Cellulitis of left upper extremity Abdominal tenderness Acute on chronic respiratory failure (CMS/HCC) Benign prostatic hyperplasia with urinary obstruction Cardiomyopathy, ischemic Former smoker Heart murmur Incomplete emptying of bladder Increased frequency of urination Nocturia Urethral stricture Urge incontinence of urine Urinary urgency Family History Problem Relation Name Age of Onset Diabetes Mother Hypertension Mother Coronary artery disease Mother Social History Tobacco Use Smoking status: Every Day Types: Cigarettes Passive exposure: Never Smokeless tobacco: Never Vaping Use Vaping Use: Never used Substance Use Topics Alcohol use: Never Drug use: Not Currently HPI Adwoa is seen in follow-up after recent admission to the [facility] with decompensated heart failure. He underwent diuresis with good response. Today he reports that he has been doing well. He has lost around 30 pounds since his last visit with 01/05/2023. On discharge from the hospital he was shifted from Bumex to Lasix as he responded better to Lasix. He is recovering from the hospitalization pretty well. He still has shortness of breath on exertion, NYHA class III. No significant lower extremity edema. No palpitations. No dizziness or lightheadedness. 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 Review of Systems Cardiovascular: Positive for dyspnea on exertion. Negative for chest pain, irregular heartbeat, leg swelling, near-syncope, orthopnea, palpitations, paroxysmal nocturnal dyspnea and syncope. Objective Visit Vitals BP 120/69 (BP Location: Right arm, Patient Position: Sitting) Pulse 85 Ht 1.753 m (5' 9 ) Wt 93 kg (205 lb) SpO2 96% BMI 30.27 kg/m??? Smoking Status Every Day BSA 2.13 m??? Physical Exam General: Awake, alert, good spirits. NAD Pulm: Breath sounds clear to ascultation bilaterally with no wheeze, crackles or rhonchi Cards: Irregular rate and rhythm, S1, S2. No S3 or S4 gallop. Murmur: none Abd: Soft, Nontender, physiologic bowel sounds are present Extr: Lower extremity edema: trace. Skin: warm, dry, well perfused Neuro: A&Ox3, No gross deficits Allergies Allergies Allergen Reactions Gabriela Inhibitors Medications Current Outpatient Medications: amitriptyline (Elavil) 25 mg tablet, Take 1 tablet by mouth if needed at bedtime., Disp: , Rfl: aspirin 81 mg EC tablet, Take 81 mg by mouth in the morning., Disp: , Rfl: atorvastatin (Lipitor) 80 mg tablet, Take 80 mg by mouth at bedtime., Disp: , Rfl: carvedilol (Coreg) 25 mg tablet, Take 1 tablet (25 mg) by mouth in the morning and at bedtime., Disp: 180 tablet, Rfl: 3 cholecalciferol (Vitamin D-3) 50 MCG (2000 UT) tablet, Take 2,000 Units by mouth in the morning., Disp: , Rfl: cyanocobalamin (Vitamin B-12) 1,000 mcg tablet, Take 1 tablet by mouth in the morning., Disp: , Rfl: dapagliflozin (Farxiga) 10 mg, Take 1 tablet (10 mg) by mouth once daily as directed., Disp: 90 tablet, Rfl: 2 digoxin (more content not included)...[facility] 03-21-2023 NotePatient here for 6 week follow up chronic systolic heart failure, permanent afib, and CAD. He has home health coming once a week and they are managing his RLE wound. He wasn't able to do cardiac rehab due to insurance reasons he says. Denies chest pain, SOB, and bleeding on warfarin. Down another 11# since last visit on 01/29/2023. Review of Systems Constitutional: Positive for weight loss (11# since 01/29/2023). Hematologic/Lymphatic: Bruises/bleeds easily. Skin: Positive for poor wound healing. Musculoskeletal: Positive for arthritis, back pain, joint pain and muscle weakness. Neurological: Positive for numbness and weakness. 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 failure w/hypoxia, COPD excacerbation [facility] Medical History 04/28/2022-Sepsis sec ./ Para influenza PNA multifocal-[facility] Medical History 05/08/2022-Increasing shortness of breath post [...] Hospitalization History rt. heart cath D Addy Graham [facility] 05/11/16 Hospitalization History Water retention/ [facility] 02/2017 Hospitalization History [facility] 11/2017 Hospitalization History INFECTION IN LEFT SMALL TOE AND FOOT 11/2018 Hospitalization History [facility] -- ICU -- COPD, SMAL L WOUND ON LEFT FOOT 12/2019 Hospitalization History COPD [facility] [place] 12/2019 Hospitalization History Ankle wound 01/2020 Hospitalization History COVID 11/2020 Hospitalization History A-FIB, CHF, KIDNEY ISSUE S 03/2021 [place] [facility] [place] [facility] Other 05-01-2023 Evaluation note* Encounter Date Diagnosis Assessment Notes Treatment Notes Treatment Clinical Notes March, Facet arthritis of lumbar region (ICD-10 - M46.96) [facility] Other 05-01-2023 History general Narrative - Reported* [...] Medical History [facility] Medical History 04/28/2022 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 failure w/hypoxia, COPD excacerbation [facility] Medical History 04/28/2022-Sepsis sec ./ Para influenza PNA multifocal-[facility] Medical History 05/08/2022-Increasing shortness of breath post [...] Hospitalization History rt. heart cath Rex Stout- [facility] 05/11/16 Hospitalization History Water retention/ [facility] 02/2017 Hospitalization History [facility] 11/2017 Hospitalization History INFECTION IN LEFT SMALL TOE AND FOOT 11/2018 Hospitalization History [facility] -- ICU -- COPD, SMAL L WOUND ON LEFT FOOT 12/2019 Hospitalization History COPD [facility] [place] 12/2019 Hospitalization History Ankle wound 01/2020 Hospitalization History COVID 11/2020 Hospitalization History A-FIB, CHF, KIDNEY ISSUE S 03/2021 [place] [facility] [place] [facility] Other 04-12-2023 History general Narrative - Reported* [...] Medical History [facility] Medical History 04/28/2022 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 failure w/hypoxia, COPD excacerbation [facility] Medical History 04/28/2022-Sepsis sec ./ Para influenza PNA multifocal-[facility] Medical History 05/08/2022-Increasing shortness of breath post [...] hx [facility] Water [facility]/ [facility] 02/2017 Hospitalization History [facility] 11/2017 Hospitalization History INFECTION IN LEFT SMALL TOE AND FOOT 11/2018 Hospitalization History [facility] -- ICU -- COPD, SMAL L WOUND ON LEFT FOOT 12/2019 Hospitalization History COPD [facility] [place] 12/2019 Hospitalization History Ankle wound 01/2020 Hospitalization History COVID 11/2020 Hospitalization History A-FIB, CHF, KIDNEY ISSUE S 03/2021 [place] [facility] [place] [facility] Other 04-11-2023 History general Narrative - Reported* [...] Medical History [facility] Medical History 04/28/2022 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 failure w/hypoxia, COPD excacerbation [facility] Medical History 04/28/2022-Sepsis sec ./ Para influenza PNA multifocal-[facility] Medical History 05/08/2022-Increasing shortness of breath post [...] Hospitalization History rt. heart cath Rex Stout- [facility] 05/11/16 Hospitalization History Water retention/ [facility] 02/2017 Hospitalization History [facility] 11/2017 Hospitalization History INFECTION IN LEFT SMALL TOE AND FOOT 11/2018 Hospitalization History [facility] -- ICU -- COPD, SMAL L WOUND ON LEFT FOOT 12/2019 Hospitalization History COPD [facility] [place] 12/2019 Hospitalization History Ankle wound 01/2020 Hospitalization History COVID 11/2020 Hospitalization History A-FIB, CHF, KIDNEY ISSUE S 03/2021 [place] [facility] [place] [facility] Other 04-05-2023 Evaluation note* Encounter Date Diagnosis [...] - N18.30) Feb, Hypokalemia (ICD-10 - E87.6) [facility] Other 03-24-2023 Evaluation note* Encounter Date Diagnosis [...] failure so a printed prescription was provided [facility] Other 03-13-2023 NoteUT Cardiology [facility] Subjective Adwoa Porter is a 67 y.o. year old male patient being seen for follow up [facility] for CHF. He is down 30# since last office visit on 01/05/2023. He is feeling much better since discharge. He is now taking metolazone once a week. Bumex was switched to furosemide. Patient Active Problem List Diagnosis Anxiety state Atrial fibrillation (CMS/HCC) Chronic obstructive lung disease (CMS/HCC) Chronic systolic congestive heart failure (CMS/HCC) Conduction disorder of the heart Atherosclerosis of [place] coronary artery of [place] heart without angina pectoris Type 2 diabetes mellitus with diabetic peripheral angiopathy without gangrene, with long-term current use of insulin (CMS/HCC) Dyspnea Mixed hyperlipidemia Implantable cardioverter-defibrillator (ICD) in situ Obesity Palpitations Paroxysmal ventricular tachycardia Raised prostate specific antigen Renal function test abnormal Uncontrolled type 2 diabetes mellitus Upper respiratory infection Stage 3b chronic kidney disease (CMS/HCC) ISAK on CPAP PVD (peripheral vascular disease) (CMS/HCC) Osteomyelitis of left foot (CMS/HCC) Open wound of finger Cellulitis of left upper extremity Abdominal tenderness Acute on chronic respiratory failure (CMS/HCC) Benign prostatic hyperplasia with urinary obstruction Cardiomyopathy, ischemic Former smoker Heart murmur Incomplete emptying of bladder Increased frequency of urination Nocturia Urethral stricture Urge incontinence of urine Urinary urgency Family History Problem Relation Name Age of Onset Diabetes Mother Hypertension Mother Coronary artery disease Mother Social History Tobacco Use Smoking status: Every Day Types: Cigarettes Passive exposure: Never Smokeless tobacco: Never Vaping Use Vaping Use: Never used Substance Use Topics Alcohol use: Never Drug use: Not Currently HPI Adwoa is seen in follow-up after recent admission to the [facility] with decompensated heart failure. He underwent diuresis with good response. Today he reports that he has been doing well. He has lost around 30 pounds since his last visit with 01/05/2023. On discharge from the hospital he was shifted from Bumex to Lasix as he responded better to Lasix. He is recovering from the hospitalization pretty well. He still has shortness of breath on exertion, NYHA class III. No significant lower extremity edema. No palpitations. No dizziness or lightheadedness. 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 Review of Systems Constitutional: Positive for weight loss (30# since 01/05/2023). Cardiovascular: Positive for dyspnea on exertion. Hematologic/Lymphatic: Bruises/bleeds easily. Skin: Positive for poor wound healing. Musculoskeletal: Positive for arthritis, back pain and joint pain. Objective Visit Vitals BP 106/66 (BP Location: Left arm, Patient Position: Sitting) Pulse 85 Ht 1.753 m (5' 9 ) Wt 98 kg (216 lb) SpO2 94% BMI 31.90 kg/m??? Smoking Status Every Day BSA 2.18 m??? Physical Exam Constitutional: Appearance: He is well-developed. He is obese. He is not ill-appearing. HENT: Head: Normocephalic and atraumatic. Nose: Nose normal. Eyes: General: No scleral icterus. Pupils: Pupils are equal, round, and reactive to light. Neck: Thyroid: No thyromegaly. Vascular: No JVD. Cardiovascular: Rate and Rhythm: Normal rate and regular rhythm. Pulses: Radial pulses are 2+ on the right side and 2+ on the left side. Heart sounds: Normal heart sounds. No murmur heard. No friction rub. No gallop. Pulmonary: Effort: Pulmonary effort is normal. No respiratory distress. Breath sounds: Normal breath sounds. No wheezing or rales. Chest: Chest wall: No tenderness. Abdominal: General: Bowel sounds are normal. There is no distension. Palpations: Abdomen is soft. Tenderness: There is no abdominal tenderness. Musculoskeletal: General: No swelling. Cervical back: Neck supple. Comments: Uses a cane to help with ambulation Skin: General: Skin is warm and dry. Neurological: General: No focal deficit present. Mental Status: He is alert and oriented to person, place, and time. Psychiatric: Mood and Affect: Mood normal. Behavior: Behavior is cooperative. Judgment: Judgment normal. Allergies Allergies Allergen Reactions Gabriela Inhibitors Medicatio (more content not included)...[facility] 01-17-2023 Evaluation note* Encounter Date Diagnosis Assessment [...] - M46.96) Continue current medication, OARRS reviewed [facility] Other 02-28-2023 Evaluation note* Encounter Date Diagnosis Assessment Notes Treatment Notes Treatment Clinical Notes Dec, Lumbar and sacral arthritis (ICD-10 - M48.9) [facility] Other 02-24-2023 History general Narrative - Reported* [...] Medical History [facility] Medical History 04/28/2022 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 failure w/hypoxia, COPD excacerbation [facility] Medical History 04/28/2022-Sepsis sec ./ Para influenza PNA multifocal-[facility] Medical History 05/08/2022-Increasing shortness of breath post [...] BONE 11/2018 Surgical History COLONOSCOPY AND EGD [facility] Surgical History amputation left fifth toe Surgical History Ankle I/D LEFT 01/2020 Surgical History Left heel skin graft 03/29/2020 Surgical History SKIN GRAFT TO LEFT FOOT 03/2020 Surgical History CATARACT REMOVED ON RIGHT EYE Surgical History CATARACT REMOVED FROM LEFT EYE 06/2021 Hospitalization History see surgical hx Hospitalization History rt. heart cath Rex Stout- [facility] 05/11/16 Hospitalization History Water retention/ [facility] 02/2017 Hospitalization History [facility] 11/2017 Hospitalization History INFECTION IN LEFT SMALL TOE AND FOOT 11/2018 Hospitalization History [facility] -- ICU -- COPD, SMAL L WOUND ON LEFT FOOT 12/2019 Hospitalization History COPD [facility] [place] 12/2019 Hospitalization History Ankle wound 01/2020 Hospitalization History COVID 11/2020 Hospitalization History A-FIB, CHF, KIDNEY ISSUE S 03/2021 [facility] Other 02-23-2023 History general Narrative - Reported* [...] Medical History V[facility]IGO Medical History 04/28/2022 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 failure w/hypoxia, COPD excacerbation [facility] Medical History 04/28/2022-Sepsis sec ./ Para influenza PNA multifocal-[facility] Medical History 05/08/2022-Increasing shortness of breath post [...] Hospitalization History rt. heart cath Rex Stout- [facility] 05/11/16 Hospitalization History Water retention/ [facility] 02/2017 Hospitalization History [facility] 11/2017 Hospitalization History INFECTION IN LEFT SMALL TOE AND FOOT 11/2018 Hospitalization History [facility] -- ICU -- COPD, SMAL L WOUND ON LEFT FOOT 12/2019 Hospitalization History COPD [facility] [place] 12/2019 Hospitalization History Ankle wound 01/2020 Hospitalization History COVID 11/2020 Hospitalization History A-FIB, CHF, KIDNEY ISSUE S 03/2021 [facility] Other 02-18-2023 History general Narrative - Reported* [...] Medical History [facility] Medical History 04/28/2022 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 failure w/hypoxia, acute on systolic chronic HF Surgical History Cardiac catherization (07/2010) Surgical History AICD insertion (11/2010) Surgical History right sided heart cath - [facility] 10/2013 Surgical History appendectomy Surgical History rt [...] Hospitalization History rt. heart cath Rex Stout- [facility] 05/11/16 Hospitalization History Water retention/ [facility] 02/2017 Hospitalization History [facility] 11/2017 Hospitalization History INFECTION IN LEFT SMALL TOE AND FOOT 11/2018 Hospitalization History [facility] -- ICU -- COPD, SMAL L WOUND ON LEFT FOOT 12/2019 Hospitalization History COPD [facility] [place] 12/2019 Hospitalization History Ankle wound 01/2020 Hospitalization History COVID 11/2020 Hospitalization History A-FIB, CHF, KIDNEY ISSUE S 03/2021 [facility] Other 02-17-2023 NotePatient here for 1 week follow up and follow up [facility] ED for LE edema and SOB. He was told to take bumex TID for a few days until he was seen in the office today. He has put on 13# in 10 days. Review of Systems Constitutional: Positive for weight gain (13# since 12/26/2022). Cardiovascular: Positive for dyspnea on exertion and leg swelling. Respiratory: Positive for shortness of breath. Hematologic/Lymphatic: Bruises/bleeds easily. Skin: Positive for poor wound healing. All other systems reviewed and are negative.[facility] 01-05-2023 NoteCardiovascular Medicine [facility] SUBJECTIVE Chief Complaint Patient presents with Atrial Fibrillation Congestive Heart Failure Coronary Artery Disease Adwoa Porter is a 67 y.o. male here for follow-up. Atrial Fibrillation Past medical history includes atrial fibrillation, CAD and CHF. Congestive Heart Failure His past medical history is significant for CAD. Coronary Artery Disease His past medical history is significant for CHF. Adwoa Porter is a 67 y.o. 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 Pt evaluated at [facility] 11/15/22 for follow up hospitalizations at [facility]. He has been admitted 10/18-10/24 and 11/08-11/11/22 for CHF exacerbation, with complication of SHIRA. 12/27/2022 -He presents to clinic for close follow-up on his heart failure. -His weight is up 10lb since last seen in clinic. He notes increased leg swelling and hand swelling. He has ELKINS. -He denies CP, orthopnea, PND, palpitations, dizziness/LH, bleeding issues. -He reports watching his fluid intake, <2L/day. He does not add Na+ to foods. 01/05/2023 -At last visit we had him increase his Bumex to 2mg TID until his weight came down. His weight never came down and has continued to increase. He is up another 13# since I saw him last 10 days ago. He c/o worsening SOB, worsening LE swelling, abdominal swelling and fatigue. He went to the ER 01/02/23 for his c/o worsening sx's. Given that his renal function and BNP was improving from last weeks labs and CXR showed no acute issues, they discharged him home without any medication changes. Patient Active Problem List Diagnosis Anxiety state Atrial fibrillation (CMS/HCC) Chronic obstructive lung disease ([facility]/HCC) Chronic systolic congestive heart failure ([facility]/HCC) Conduction disorder of the heart Atherosclerosis of [place] coronary artery of [place] heart without angina pectoris Type 2 diabetes mellitus with diabetic peripheral angiopathy without gangrene, with long-term current use of insulin ([facility]) Dyspnea Mixed hyperlipidemia Implantable cardioverter-defibrillator (ICD) in situ Obesity Palpitations Paroxysmal ventricular tachycardia Raised prostate specific antigen Renal function test abnormal Uncontrolled type 2 diabetes mellitus Upper respiratory infection Stage 3b chronic kidney disease ([facility]/HCC) ISAK on CPAP PVD (peripheral vascular disease) ([facility]/HCC) Osteomyelitis of left foot ([facility]/HCC) Open wound of finger Cellulitis of left upper extremity Abdominal tenderness Acute on chronic respiratory failure ([facility]/HCC) Benign prostatic hyperplasia with urinary obstruction Cardiomyopathy, ischemic Former smoker Heart murmur Incomplete emptying of bladder Increased frequency of urination Nocturia Urethral stricture Urge incontinence of urine Urinary urgency Past Medical History: Diagnosis Date Anxiety Atrial fibrillation ([facility]/HCC) Cardiomyopathy ([facility]/HCC) CHF (congestive heart failure) ([facility]/HCC) Chronic kidney disease COPD (chronic obstructive pulmonary disease) ([facility]/HCC) Coronary artery disease Diabetes mellitus ([facility]) High cholesterol Hyperlipidemia Hypertension Family History Problem Relation Name Age of Onset Diabetes Mother Hypertension Mother Coronary artery disease Mother Social History Tobacco Use Smoking status: Every Day Types: Cigarettes Passive exposure: Never Smokeless tobacco: Never Vaping Use Vaping Use: Never used Substance Use Topics Alcohol use: Never Drug use: Not Currently Allergies Allergen Reactions Gabriela Inhibitors ROS Constitutional: Positive for weight gain (13# since 12/26/2022). Cardiovascular: Positive for dyspnea on exertion and leg swelling. Respiratory: Positive for shortness of breath. Hematologic/Lymphatic: Bruises/bleeds easily. Skin: Positive for poor wound healing. All other systems reviewed and are negative. OBJECTIVE Visit Vitals BP 106/65 (BP Location: Left arm, Patient Position: Sitting) Pulse 99 Ht 1.753 m (5' 9 ) Wt 112 kg (246 lb) SpO2 95% BMI 36.33 kg/m??? Smoking Status Every Day BSA 2.34 m??? Medications: Current Outpatient Medications: amitriptyline (Elavil) 25 mg tablet, Take 1 tablet by mouth if needed at bedtime., Disp: , Rfl: aspirin 81 mg chewable tablet, Chew 81 mg in the morning., Disp: , Rfl: atorvastatin (Lipitor) 80 mg tablet, Take 80 mg by mouth at bedtime., Disp: , Rfl: bumetanide (Bumex) 2 mg tablet, Take 1 tablet (more content not included)... 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 failure w/hypoxia, acute on systolic chronic HF Surgical History Cardiac catherization (07/2010) Surgical History AICD insertion (11/2010) Surgical History right sided heart cath - [facility] 10/2013 Surgical History appendectomy Surgical History rt [...] Hospitalization History rt. heart cath Rex Stout- [facility] 05/11/16 Hospitalization History Water retention/ [facility] 02/2017 Hospitalization History Observation-[facility] 11/2017 Hospitalization History INFECTION IN LEFT SMALL TOE AND FOOT 11/2018 Hospitalization History [facility] -- ICU -- COPD, SMAL L WOUND ON LEFT FOOT 12/2019 Hospitalization History COPD [facility] [place] 12/2019 Hospitalization History Ankle wound 01/2020 Hospitalization History COVID 11/2020 Hospitalization History A-FIB, CHF, KIDNEY ISSUE S 03/2021 [facility] Other 02-12-2023 History general Narrative - Reported* [...] Medical History [facility] Medical History 04/28/2022 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 failure w/hypoxia, COPD excacerbation [facility] Medical History 04/28/2022-Sepsis sec ./ Para influenza PNA multifocal-[facility] Medical History 05/08/2022-Increasing shortness of breath post [...] Hospitalization History rt. heart cath Rex Stout- [facility] 05/11/16 Hospitalization History Water retention/ [facility] 02/2017 Hospitalization History Observation-[facility] 11/2017 Hospitalization History INFECTION IN LEFT SMALL TOE AND FOOT 11/2018 Hospitalization History [facility] -- ICU -- COPD, SMAL L WOUND ON LEFT FOOT 12/2019 Hospitalization History COPD [facility] [place] 12/2019 Hospitalization History Ankle wound 01/2020 Hospitalization History COVID 11/2020 Hospitalization History A-FIB, CHF, KIDNEY ISSUE S 03/2021 [facility] Other 02-07-2023 NoteCardiovascular Medicine [facility] SUBJECTIVE Chief Complaint Patient presents with Congestive Heart Failure Adwoa Porter is a 67 y.o. male here for follow-up. HPI Adwoa Porter is a 67 y.o. 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 Pt evaluated at [facility] 11/15/22 for follow up hospitalizations at [facility]. He has been admitted 10/18-10/24 and 11/08-11/11/22 for CHF exacerbation, with complication of SHIRA. 12/27/2022 -He presents to clinic for close follow-up on his heart failure. -His weight is up 10lb since last seen in clinic. He notes increased leg swelling and hand swelling. He has ELKINS. -He denies CP, orthopnea, PND, palpitations, dizziness/LH, bleeding issues. -He reports watching his fluid intake, <2L/day. He does not add Na+ to foods. Patient Active Problem List Diagnosis Anxiety state Atrial fibrillation ([facility]/HCC) Chronic obstructive lung disease ([facility]/HCC) Chronic systolic congestive heart failure ([facility]/HCC) Conduction disorder of the heart Atherosclerosis of [place] coronary artery of [place] heart without angina pectoris Type 2 diabetes mellitus with diabetic peripheral angiopathy without gangrene, with long-term current use of insulin (CMS/HCC) Dyspnea Mixed hyperlipidemia Implantable cardioverter-defibrillator (ICD) in situ Obesity Palpitations Paroxysmal ventricular tachycardia Raised prostate specific antigen Renal function test abnormal Uncontrolled type 2 diabetes mellitus Upper respiratory infection Stage 3b chronic kidney disease ([facility]/HCC) ISAK on CPAP PVD (peripheral vascular disease) ([facility]) Osteomyelitis of left foot ([facility]/HCC) Open wound of finger Cellulitis of left upper extremity Abdominal tenderness Acute on chronic respiratory failure ([facility]/HCC) Benign prostatic hyperplasia with urinary obstruction Cardiomyopathy, ischemic Former smoker Heart murmur Incomplete emptying of bladder Increased frequency of urination Nocturia Urethral stricture Urge incontinence of urine Urinary urgency Past Medical History: Diagnosis Date Anxiety Atrial fibrillation ([facility]/HCC) Cardiomyopathy ([facility]/HCC) CHF (congestive heart failure) ([facility]) Chronic kidney disease COPD (chronic obstructive pulmonary disease) ([facility]) Coronary artery disease Diabetes mellitus ([facility]) High cholesterol Hyperlipidemia Hypertension Family History Problem Relation Name Age of Onset Diabetes Mother Hypertension Mother Coronary artery disease Mother Social History Tobacco Use Smoking status: Every Day Types: Cigarettes Passive exposure: Never Smokeless tobacco: Never Vaping Use Vaping Use: Never used Substance Use Topics Alcohol use: Never Drug use: Not Currently Allergies Allergen Reactions Gabriela Inhibitors ROS Constitutional: Positive for weight gain (10# since 12/01/2022). Cardiovascular: Positive for dyspnea on exertion and leg swelling. Respiratory: Positive for shortness of breath. Hematologic/Lymphatic: Bruises/bleeds easily. Skin: Positive for poor wound healing. All other systems reviewed and are negative. OBJECTIVE Visit Vitals BP 110/70 (BP Location: Left arm, Patient Position: Sitting) Pulse 87 Ht 1.753 m (5' 9 ) Wt 106 kg (233 lb) SpO2 96% BMI 34.41 kg/m??? Smoking Status Every Day BSA 2.27 m??? Medications: Current Outpatient Medications: amitriptyline (Elavil) 25 mg tablet, Take 1 tablet by mouth if needed at bedtime., Disp: , Rfl: aspirin 81 mg chewable tablet, Chew 81 mg in the morning., Disp: , Rfl: atorvastatin (Lipitor) 80 mg tablet, Take 80 mg by mouth at bedtime., Disp: , Rfl: bumetanide (Bumex) 2 mg tablet, Take 1 tablet (2 mg) by mouth in the morning and at bedtime., Disp: 30 tablet, Rfl: 6 carvedilol (Coreg) 25 mg tablet, Take 1 tablet (25 mg) by mouth in the morning and at bedtime., Disp: 180 tablet, Rfl: 3 cholecalciferol (Vitamin D-3) 50 MCG (2000 UT) tablet, Take 2,000 Units by mouth in the morning., Disp: , Rfl: cyanocobalamin (Vitamin B-12) 1,000 mcg tablet, Take 1 tablet by mouth in the morning., Disp: , Rfl: dapagliflozin (Farxiga) 10 mg, Take 10 mg by mouth in the morning., Disp: , Rfl: digoxin (Lanoxin) 125 MCG tablet, Take 1 tablet by mouth in the morning., Disp: , Rfl: dulaglutide (Trulicity) 0.75 mg/0.5 mL pen injector, Inject 0.75 mg under the skin 1 (one) time per week., Disp: , Rfl: gabapentin (Neurontin) 400 mg capsule, Take 1 capsule by mouth in the morning (more content not included)...[facility]02-07-2023 Note Patient here for 3 week follow up CHF per Evi Myers CNP. Had BMP this morning. He has gained 10# since office visit with Char Millard CNP on 12/01/2022. C/o SOB and LUE swelling. Denies chest pain and bleeding on warfarin. Review of Systems Constitutional: Positive for weight gain (10# since 12/01/2022). Cardiovascular: Positive for dyspnea on exertion and leg swelling. Respiratory: Positive for shortness of breath. Hematologic/Lymphatic: Bruises/bleeds easily. Skin: Positive for poor wound healing. All other systems reviewed and are negative.[facility] 12-12-2022 Evaluation note* Encounter Date Diagnosis Assessment Notes [...] findings with him by Shaw Rondon RN, [facility]. [facility] Other 01-23-2023 Reason for referral (narrative)* Reason 12/11/22 @ Irvin gonzalez to lopez per patient request Diagnosis 1 COPD (chronic obstru ctive pulmonary disease) (J44.9) Diagnosis 2 Athscl heart disease of [place] coronary artery w/o ang pctrs (I25.10) Diagnosis 3 Unspecified systolic (congestive) heart failure (I50.20) Referral Organization [facility] Family [address] Referring Provider First Name Vinnie Referring Provider Last Name Terry Referring Provider Specialty Family Natalie lobo Referred Organization [facility] Referred Address [address] [place],[address] Referred Provider Specialty Hospice and Palliative Medicine Referral Priority Routine Referral Appointment Date 2022-12-11 General Notes Doris Modi 09:13:40 AM >referral received and faxed. appt scheduled for 11:00am today. Doris Modi 12/13/2022 12:20:16 PM >faxed letter to obtain consult note Doris Modi 12/14/2022 07:21:24 AM >received VM from marilu at [facility], she stated they saw pt, however; he told them he was not ready for comfort care and therefore did not sign on with hospice. Closing referral [facility] Other 01-23-2023 NoteUTP CARDIOLOGY TELEMEDECINE PROGRESS NOTE [facility] Adwoa Porter is a 67 y.o. male here for HfrEF evaluated by telemedicine visit. He lives in [place], [place]. HPI Pt evaluated at [facility] 11/15/22 for follow up hospitalizations at [facility]. He has been admitted 10/18-10/24 and 11/08-11/11/22 for CHF exacerbation, with ocmplication of SHIRA. Prior to the last admission he had run out of his diuretic, at one point he was up to 253lbs, but at 12/01/22 office visit was now down to 232lbs. & pt stated compliance with daily weights and diuretics since discharge from the hospital. SOB was improved without orthopnea, PND, leg edema, or chest pain. Recent labs had found worsening renal function so Entresto not pursued. Today patient says that he is feeling well, compliant with his medications, sodium restriction and not drinking excessive fluids. Weights are stable at 220 pounds. Home blood pressures are often below 120 systolic, not noting pulse rates. He has occasional palpitations without feeling of speeding heart without syncope or presyncope. He does not do any structured exercise but denies any more than he considers normal dyspnea with his current activities. I called his pharmacy and confirmed he is taking Farxiga and that he is NOT taking Januvia. REVIEW OF SYSTEMS: Neuro: No dizziness or lightheadedness with position change or standing. No focal neuro deficits. No recent falls, syncope or pre-syncope. Cardio: Occasional palpitations. No chest pressure or pain with any activities. Pulm: No significant ELKINS. No PND or orthopnea. Abd: No increased abdominal girth. No significant epigastric distress or dyspepsia. No significant weight gain or loss. No hematochezia nor melena. Extr: No claudication symptoms. No lower extremity edema. Visit Vitals BP (!) 162/104 (BP Location: Left arm, Patient Position: Standing, BP Cuff Size: Adult long) Pulse 92 Ht 1.753 m (5' 9 ) Wt 99.8 kg (220 lb) BMI 32.49 kg/m??? Smoking Status Every Day BSA 2.2 m??? Allergies Allergen Reactions Gabriela Inhibitors Outpatient Medications: Current Outpatient Medications on File Prior to Visit Medication Sig Dispense Refill amitriptyline (Elavil) 25 mg tablet Take 1 tablet by mouth if needed at bedtime. aspirin 81 mg chewable tablet Chew 81 mg in the morning. atorvastatin (Lipitor) 80 mg tablet Take 80 mg by mouth at bedtime. carvedilol (Coreg) 25 mg tablet Take 1 tablet (25 mg) by mouth in the morning and at bedtime. 180 tablet 3 cholecalciferol (Vitamin D-3) 50 MCG (2000 UT) tablet Take 2,000 Units by mouth in the morning. cyanocobalamin (Vitamin B-12) 1,000 mcg tablet Take 1 tablet by mouth in the morning. dapagliflozin (Farxiga) 10 mg Take 10 mg by mouth in the morning. digoxin (Lanoxin) 125 MCG tablet Take 1 tablet by mouth in the morning. dulaglutide (Trulicity) 0.75 mg/0.5 mL pen injector Inject 0.75 mg under the skin 1 (one) time per week. ferrous sulfate 325 (65 Fe) MG tablet Take 1 tablet by mouth in the morning. FreeStyle Lucas 2 Sensor kit check BLOOD SUGAR FOUR TIMES DAILY DIRECTED for 84 days gabapentin (Neurontin) 400 mg capsule Take 1 capsule by mouth in the morning and at bedtime. hydrALAZINE (Apresoline) 50 mg tablet Take 1 tablet by mouth with breakfast, with lunch, and with evening meal. HYDROcodone-acetaminophen ([place]) 5-325 mg tablet Take 1 tablet by mouth every 8 (eight) hours if needed. insulin lispro (HumaLOG) 200 unit/mL (3 mL) insulin pen pen Inject 40 Units under the skin. isosorbide dinitrate (Isordil) 20 mg tablet Take 20 mg by mouth in the morning and at bedtime. nitroglycerin (Nitrostat) 0.4 mg SL tablet DISSOLVE 1 TABLET UNDER THE TONGUE NEEDED FOR CHEST PAIN- MAY REPEAT EVERY 5 MINUTES IF NEEDED ( MAX 3 DOSES.- IF NO RELIEF CALL 911) spironolactone (Aldactone) 25 mg tablet Take 1 tablet (25 mg) by mouth in the morning. 30 tablet 0 warfarin sodium (WARFARIN ORAL) 2.5 mg with evening meal. 5 mg on Tuesdays & 2.5 mg on Sundays, Mondays, Wednesdays, Fridays, & Saturdays [DISCONTINUED] bumetanide (Bumex) 2 mg tablet Take 1 tablet (2 mg) by mouth in the morning and at bedtime. 60 tablet 0 [DISCONTINUED] SITagliptin phosphate (Januvia) 100 mg tablet Take 100 mg by mouth in the morning. [DISCONTINUED] dapagliflozin (Farxiga) 10 mg Take 1 tablet (10 mg) by mouth once daily as directed. 30 tablet 11 No current facility-administered medications on file prior to visit. Physical Exam: BP (!) 162/104 (BP Location: Left arm, Patient Position: Standing, BP Cuff Size: Adult long) Pulse 92 Ht 1.753 m (5' 9 ) Wt 99.8 kg (220 lb) BMI 32.49 kg/m??? Physical exam: General: Conversational and appropriate, no acute distress, no perceived increased work of breathing with conversation. Labs: Chemistry Lab Results Component Value Date/Time NA 138 11/11/2022 0628 K 3.8 11/11/2022 0628 CL 100 11/11/2022 0628 CO2 27 11/11/2022 06 (more content not included)...[facility]01-13-2023 NoteUT Cardiology Note [facility] Reason for visit: HF close follow up, 2weeks HPI: He has been doing well so far since last follow up He has been taking his weight at home which is different than our scales weight it is typically more but per our scale he is down 4kg since last visit He continues to be compliant with his medication and continues to have improved SOB. He does not have any leg edema but at times still gets ELKINS Denies chest pain, SOBB, LE Edema, palpitations Review of Systems Constitutional: Negative for chills, fatigue and fever. Cardiovascular: Positive for dyspnea on exertion (mild and improved). Negative for chest pain, leg swelling and palpitations. Respiratory: Positive for shortness of breath (this continues to improve). Negative for chest tightness and choking. Neurological: Negative for dizziness, light-headedness and syncope. All other systems reviewed and are negative. HPI: Adwoa Porter is a 67 y.o. male here to follow up hospitalization at [facility]. He has been admitted 10/18-10/24 and 11/08-11/11/22 for CHF exacerbation. He states he ran out of his diuretics prior to last admission and he filled up with fluid again. At one point he was up to 253lbs, but now down to 232lbs. his with pt and states they are compliant with daily weights. He has been compliant with diuretics since discharge from the hospital. SOB is improved. Denies any orthopnea, PND, leg edema, or chest pain. He had labs done in [place] 2 days ago. Discharge Summary from [facility]: 67-year-old male came to hospital for worsening shortness of breath with leg swelling and cough. Patient has not been compliant with the prescribed diuretic therapy leading to decompensated systolic CHF. Started on aggressive diuretic regimen with 80 mg Lasix twice daily with strict input output monitoring. Over the next 48 hours patient significantly improved with significant weight loss and negative fluid balance. Does not have chest pain or shortness of breath. Leg swelling is significantly improved. Patient has been goal-directed medical therapy except ARB which were held due to cardiorenal syndrome. Renal functionsgradually improving with creatinine coming down to 1.4 today. 2 mg Bumex twice daily would be continued with outpatient follow-up in heart failure clinic within week for further optimization of diuretic therapy along with goal-directed medical therapy for chronic systolic CHF. Continue would be Coumadin with goal INR 2-3 for underlying atrial fibrillation. Review of Systems Constitutional: Negative for chills, fatigue and fever. Respiratory: Positive for shortness of breath (this continues to improve). Negative for choking and chest tightness. Cardiovascular: Positive for dyspnea on exertion (mild and improved). Negative for chest pain, palpitations and leg swelling. Neurological: Negative for dizziness, syncope and light-headedness. All other systems reviewed and are negative. Visit Vitals BP 120/70 (BP Location: Left arm, Patient Position: Sitting) Pulse 92 Ht 1.753 m (5' 9 ) Wt 101 kg (223 lb 9.6 oz) SpO2 93% BMI 33.02 kg/m??? Smoking Status Former BSA 2.22 m??? Physical Exam: General: Awake, alert and NAD, obese, chronically ill appearing HEENT: Head Normocephalic/Atraumatic, MMM, EOMI Neck: Supple, trachea midline Neuro: Alert and Oriented x3, Moves all extremities to command, clear speech Pulm: Diminished bilaterally, No wheezing, rales or rhonchi CV: Irregular rate and rhythm, Normal S2, No murmurs, rubs or gallops ABD: Soft, NT/ND, +BS Extremities: Radial/DP/PT pulses palpable +2, No bilateral LE edema, but quarter sized black discoloration left hand 3rd digit and on 2nd digit, 2 small < a dime sized black discoloration spots Skin: Warm, Dry and Intact Psych: Cooperative, Pleasant Labs: Component Latest Ref Rng & Units 11/08/2022 11/09/2022 11/10/2022 11/11/2022 Sodium 136 - 145 mmol/L 141 138 Potassium 3.5 - 5.1 mmol/L 3.7 3.8 Chloride 98 - 107 mmol/L 101 100 CO2 21 - 31 mmol/L 32 (H) 27 BUN 7 - 25 mg/dL 25 24 Creatinine 0.70 - 1.30 mg/dL 1.51 (H) 1.40 (H) Glucose 70 - 100 mg/dL 114 (H) 113 (H) Calcium 8.6 - 10.3 mg/dL 8.9 9.2 Anion Gap 7 - 20 mmol/L 8 11 EGFR >60.0 mL/min/1.73m*2 46.8 (L) 51.3 (L) BUN/Creatinine Ratio 16.56 17.14 Auto WBC 4.00 - 10.60 10*3/uL 9.11 RBC 4.20 - 5.70 10*6/uL 4.41 Hemoglobin 13.0 - 17.0 g/dL 12.5 (L) Hematocrit 39.0 - 55.0 % 39.6 MCV 82.0 - 98.0 fL 89.8 MCH 27.0 - 33.0 pg 28.3 MCHC 32.0 - 35.0 g/dL 31.6 (L) RDW 11.5 - 15.0 % 17.8 (H) Platelets 150 - 400 10*3/uL 211 BNP 0 - 100 pg/mL 656 (H) Magnesium 1.9 - 2.7 mg/dL 2.4 Digoxin Lvl 0.7 - 2 ng/mL 1.1 Troponin I 0.00 - 0.04 ng/mL 0.06 (H) CV Testing: Echo 10/19/22: Left Ventricle: The left ventricle is severely en (more content not included)...[facility]12-27-2022 Evaluation note* Encounter Date Diagnosis Assessment Notes Treatment Notes Treatment Clinical Notes Oct, Lumbar and sacral arthritis (ICD-10 - M48.9) [facility] Other 12-20-2022 Evaluation note* Encounter Date Diagnosis Assessment Notes [...] with both medications. We had applied for [employer] patient assistance it appears his Farxiga is [...] with diabetic education in 4 weeks and al with 8 weeks to assure mitigation of [...] (ICD-10 - I10) f/u with pcp Oct, [facility] current use of insulin (ICD-10 - Z79.4) Oct, Vitamin B 12 deficiency (ICD-10 - E53.8) Oct, CKD (chronic kidney disease) stage 3, GFR 30-59 ml/min (ICD-10 - N18.3) keep f/u with nephrology Oct, Type 2 diabetes mellitus with diabetic neuropathy, unspecified (ICD-10 - E11.40) Oct, BMI 35.0-35.9,adult (ICD-10 - Z68.35) Oct, Other I have spent 30 minutes with this patient and over 50% of the visit was counseling done by myself, Tyesha JUDD. BENEFIT FROM LIBRE2 with alarms, ordered thru [employer]. discussion and merck handout on hypoglycemia and treament. 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 heart cath Rex Stout- [facility] 05/11/16 Hospitalization History Water retention/ [facility] 02/2017 Hospitalization History [facility] 11/2017 Hospitalization History INFECTION IN LEFT SMALL TOE AND FOOT 11/2018 Hospitalization History [facility] -- ICU -- COPD, SMAL L WOUND ON LEFT FOOT 12/2019 Hospitalization History COPD [facility] 12/2019 Hospitalization History Ankle wound 01/2020 Hospitalization History COVID 11/2020 Hospitalization History A-FIB, CHF, KIDNEY ISSUE S 03/2021 [facility] Other 11-10-2022 Evaluation note* Encounter Date Diagnosis [...] the goal and has adequate [employer] [facility] Other 11-10-2022 Evaluation note* Encounter Date Diagnosis [...] plan Sep, Other Wright material was printed [facility] Other 11-10-2022 History general Narrative - Reported* [...] Medical History VERTIGO Medical History 04/28/2022 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 heart cath D Addy Stout- [facility] 05/11/16 Hospitalization History Water retention/ [facility] 02/2017 Hospitalization History [facility] 11/2017 Hospitalization History INFECTION IN LEFT SMALL TOE AND FOOT 11/2018 Hospitalization History [facility] -- ICU -- COPD, SMAL L WOUND ON LEFT FOOT 12/2019 Hospitalization History COPD [facility] [place] 12/2019 Hospitalization History Ankle wound 01/2020 Hospitalization History COVID 11/2020 Hospitalization History A-FIB, CHF, KIDNEY ISSUE S 03/2021 [facility] Other 10-26-2022 Evaluation note* Encounter Date Diagnosis [...] any worsening erythema, or with other concerns. [facility] Other 10-26-2022 History general Narrative - Reported* Type Description Date Medical History Triple vessel CAD Medical History ischemic cardiomyopa thy with ejection fraction 10-15% Medical History Cardiac arrythmias with insertio n of AICD device Medical History hypertension Medical History hyperlipidemia Medical History NIDDM Medical History COPD Medical History nicotine dependence Medical History cervical spinal stenosis Medical History hoarseness - mass removed by Dr. 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 heart cath Rex Stout- [facility] 05/11/16 Hospitalization History Water retention/ [facility] 02/2017 Hospitalization History [facility] 11/2017 Hospitalization History INFECTION IN LEFT SMALL TOE AND FOOT 11/2018 Hospitalization History [facility] -- ICU -- COPD, SMAL L WOUND ON LEFT FOOT 12/2019 Hospitalization History COPD [facility] [place] 12/2019 Hospitalization History Ankle wound 01/2020 Hospitalization History COVID 11/2020 Hospitalization History A-FIB, CHF, KIDNEY ISSUE S 03/2021 [facility] Other 10-21-2022 Evaluation note* Encounter Date Diagnosis Assessment Notes Treatment Notes Treatment Clinical Notes Aug, Lumbar and sacral arthritis (ICD-10 - M48.9) [facility] Other 10-03-2022 History general Narrative - Reported* [...] Hospitalization History rt. heart cath Rex Stout- [facility] 05/11/16 Hospitalization History Water retention/ [facility] 02/2017 Hospitalization History [facility] 11/2017 Hospitalization History INFECTION IN LEFT SMALL TOE AND FOOT 11/2018 Hospitalization History [facility] -- ICU -- COPD, SMAL L WOUND ON LEFT FOOT 12/2019 Hospitalization History COPD [facility] [place] 12/2019 Hospitalization History Ankle wound 01/2020 Hospitalization History COVID 11/2020 Hospitalization History A-FIB, CHF, KIDNEY ISSUE S 03/2021 [facility] Other 09-12-2022 Evaluation note* Encounter Date Diagnosis [...] (ICD-10 - I10) f/u with pcp Jul, [facility] 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 [facility] Other 08-04-2022 History general Narrative - Reported* [...] Hospitalization History rt. heart cath Rex Stout- [facility] 05/11/16 [facility] Hospital[facility] History [facility] 11/2017 Hospitalization History INFECTION IN LEFT SMALL TOE AND FOOT 11/2018 Hospitalization History [facility] -- ICU -- COPD, SMAL L WOUND ON LEFT FOOT 12/2019 Hospitalization History COPD [facility] [place] 12/2019 Hospitalization History Ankle wound 01/2020 Hospitalization History COVID 11/2020 Hospitalization History A-FIB, CHF, KIDNEY ISSUE S 03/2021 [facility] Other 08-02-2022 Evaluation note* Encounter Date Diagnosis Assessment Notes Treatment Notes Treatment Clinical Notes Jun, Community acquired pneumonia, unspecified laterality (ICD-10 - J18.9) He will complete the antibiotics and call with any worsening symptoms. I also advised him to call with any worsening diarrhea Jun, COPD (chronic obstructive pulmonary disease) (ICD-10 - J44.9) [facility] Other 08-02-2022 History general Narrative - Reported* [...] Hospitalization History rt. heart cath Rex Stout- [facility] 05/11/16 Hospitalization History Water retention/ [facility] 02/2017 Hospitalization History [facility] 11/2017 Hospitalization History INFECTION IN LEFT SMALL TOE AND FOOT 11/2018 Hospitalization History [facility] -- ICU -- COPD, SMAL L WOUND ON LEFT FOOT 12/2019 Hospitalization History COPD [facility] [place] 12/2019 Hospitalization History Ankle wound 01/2020 Hospitalization History COVID 11/2020 Hospitalization History A-FIB, CHF, KIDNEY ISSUE S 03/2021 [facility] Other 07-27-2022 Progress note Author Ethan Cummings [facility] June 13, 2022 10:16pm Note Date/Time June 06, 2022 11:[address] [facility] [place] [place] [facility] [place] [id number] Hem/Onc Follow Up Note - OP Signed Patient: Adwoa Porter MR#: [id number] : 1955 Acct:[id number] Age/Sex: 66 / M Type: REG RCR [...] hs BCR/ABL was negative. Recent hospitalization at [place] for COVID PNA. He had also a [...] for coordination of care (as documented) and vdzm-pr-lpio counseling of patient and/or family. [facility] - Medical History Medical History: Medical History [...] <Electronically signed by Ethan Cummings II, DO> 06/13/22 2216 [facility] Work Phone: [phone]) 331-373606-28-2022 History general Narrative - Reported* Type Description [...] Hospitalization History rt. heart cath Rex Stout- [facility] 05/11/16 Hospitalization History Water retention/ [facility] 02/2017 Hospitalization History [facility] 11/2017 Hospitalization History INFECTION IN LEFT SMALL TOE AND FOOT 11/2018 Hospitalization History [facility] -- ICU -- COPD, SMAL L WOUND ON LEFT FOOT 12/2019 Hospitalization History COPD [facility] [place] 12/2019 Hospitalization History Ankle wound 01/2020 Hospitalization History COVID 11/2020 Hospitalization History A-FIB, CHF, KIDNEY ISSUE S 03/2021 [facility] Other 06-08-2022 Evaluation note* Encounter Date Diagnosis Assessment Notes Treatment Notes Treatment Clinical Notes Apr, Type 2 diabetes mellitus with hyperglycemia (ICD-10 - E11.65) [facility] Other 06-06-2022 Evaluation note* Encounter Date Diagnosis Assessment Notes Treatment Notes Treatment Clinical Notes Apr, Acute on chronic systolic congestive heart failure (ICD-10 - I50.23) [facility] Other 05-23-2022 Progress note Author Ethan Cummings [facility] April 10, 2022 3:31pm Note Date/Time April 10, 2022 2:42p m [facility] [place] [place] [address] Hem/Onc Follow Up Note - OP Signed Patient: Adwoa Porter MR#: [id number] : 1955 Acct:[id number] Age/Sex: 66 / M Type: REG RCR [...] for coordination of care (as documented) and olfm-fe-zkai counseling of patient and/or family. [facility] - Medical History Medical History: Medical History [...] by Ethan Cummings II, DO> 04/10/22 1531 [facility] Work Phone: [phone]) 270-614304-29-2022 Evaluation note* Encounter Date Diagnosis Assessment Notes Treatment Notes Treatment Clinical Notes Feb, Facet arthritis of lumbar region (ICD-10 - M46.96) [facility] Other 04-14-2022 Evaluation note* Encounter Date Diagnosis [...] this wound he will follow-up with his senior advisor [facility] Other 04-03-2022 Evaluation note* Encounter Date Diagnosis Assessment Notes Treatment Notes Treatment Clinical Notes Feb, Left foot pain (ICD-10 - M79.672) Contiune all home medicatons as prescribed. Follow up with your primary care physciain tomorrow for further testing. Go to the ER for worsening symptoms or concerns. [facility] Other 03-22-2022 Evaluation note* Encounter Date Diagnosis [...] overload caused by recurring apneas are controlled. [facility] Other 02-23-2022 Evaluation note* Encounter Date Diagnosis [...] (ICD-10 - I10) f/u with pcp Dec, [facility] current use of insulin (ICD-10 - Z79.4) [...] was counseling done by myself, Tyesha JUDD. [facility] Other 01-10-2022 Evaluation note* Encounter Date Diagnosis Assessment Notes Treatment Notes Treatment Clinical Notes Nov, Type 2 diabetes mellitus with hyperglycemia (ICD-10 - E11.65) [facility] Other 12-29-2021 Evaluation note* Encounter Date Diagnosis [...] (ICD-10 - I10) f/u with pcp Oct, [facility] current use of insulin (ICD-10 - Z79.4) Oct, Vitamin B 12 deficiency (ICD-10 - E53.8) Oct, CKD (chronic kidney disease) stage 3, GFR 30-59 ml/min (ICD-10 - N18.3) keep f/u with nephrology Oct, Type 2 diabetes mellitus with diabetic neuropathy, unspecified (ICD-10 - E11.40) Oct, Hypoglycemia (ICD-10 - E16.2) BENEFIT FROM LIBRE2 with alarms, ordered thru [employer]. discussion and merck handout on hypoglycemia and treament. Oct, BMI 35.0-35.9,adult (ICD-10 - Z68.35) Oct, Other I have spent 30 minutes with this patient and over 50% of the visit was counseling done by myself, Tyesha JUDD. [facility] Other 11-17-2021 Evaluation note* Encounter Date Diagnosis Assessment Notes Treatment Notes Treatment Clinical Notes Sep, Vitamin D deficiency (ICD-10 - E55.9) 07/09 54 sees NEPHRO Sep, Type 2 diabetes mellitus with hyperglycemia (ICD-10 - E11.65) 1. Uncontrolled, a Type 2 diabetes with A1c of 7.8% 2. Blood glucose levels higher, Libre2 download today Sep- 48% active. Average glucose 269. GMI cannot [...] (ICD-10 - I10) f/u with pcp Sep, [facility] current use of insulin (ICD-10 - Z79.4) [...] myself, Tyesha JUDD. transitioned to Ozempic from [facility] for added weight loss benefit, increased glycemic control [facility] Other 11-08-2021 Evaluation note* Encounter Date Diagnosis [...] include pain management referral or physical therapy [facility] Other 05-31-2021 NoteMR#: [id number] I [facility] Pt. Name: Adwoa Porter Admitted: 04/12/2021 Discharged: 04/17/2021 Date of : 1955 Physician: Balbir Stubbs MD DISCHARGE SUMMARY PRINCIPAL DISCHARGE DIAGNOSES: 1. Ikyjk-xb-tdmyemh heart failure with reduced ejection fraction. 2. [...] heart failure. The patient was transferred to [facility] on a bumetanide infusion. 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 3. The patient was strongly encouraged to consider acute rehab, however, he declined and insisted on returning to home. Total time spent on discharge coordination 45 minutes. Electronically Signed by: Balbir Stubbs MD 04/27/2021 01:19 P Balbir Stubbs MD Date Dict: 04/17/2021/03:44 P/Balbir Stubbs MD Date Trans: 04/18/2021 12:53 A/nena [id number] cc: Vinnie Stewart M.D. [facility] [address] [place] [id number] Lowell Craft M.D. [facility] [id number] [facility] HospitalDis[facility] summary Author Yakov To [facility] February 15, 2023 2:13pm Note Date/Time February 15, 2023 2:1 3pm [facility] [address] [place], [place] [id number] Discharge Summary Signed Patient: Adwoa Porter MR#: [id number] : 1955 Acct:[id number] Age/Sex: 67 / M Adm Date: 3 Loc: Room: [address] [place] [address]: Yakov To DO Copies to: DO Vinnie Perry DO~ Providers Date of Admission: 02/13/23 Date of Discharge: 03/29/23 Discharging Provider: Yakov To Primary Care Provider: [...] blood sugars and low potassium by his keyseating machine set up operator. Upon arrival to the hospital his blood [...] 15:48 02/14/23 15:48 02/14/23 15:48 02/14/23 15:48 Narrative: General: Awake alert, no acute [...] Yakov To DO> 02/15/23 1413 [facility] Work Phone: Evaluation noteNo InformationNort [facility] Other Evaluation note* Diagnosis Onset Date Resolution Status Leukocytosis acute [facility] Work Phone: Evaluation note* Diagnosis Onset Date Resolution Status Leukocytosis acute SHIRA (acute kidney injury) ac cheesh-na Cardiomyopathy acute Elevated serum creatinine ac cheesh-na Elevated troponin acute Hyperglycemia acute Hypokalemia acute Hyponatremia acute Metabolic alkalosis with respiratory acidosis acute CKD (chronic kidney disease) stage 3, GFR 30-59 ml/min chronic Obstructive sleep apnea 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 Paroxysmal A-fib chronic [facility] Work Phone: Evaluation noteNo assessment information available [facility] Work Phone: History and physical note Author Yakov To [facility] February 13, 2023 9:35pm Note Date/Time February 13, 2023 9:2 3pm [facility] [address] [place] [address] Hospitalist H&P Signed Patient: Adwoa Porter MR#: [id number] : 1955 Acct:[id number] Age/Sex: 67 / M Adm Date: 3 Loc: Room: [address] [place] [address] Type: ADM IN Attending Dr: Yakov To [...] in the 500 range, he saw his keyseating machine set up operator today and because he knew his glucose [...] % (Auto) 17.7 % (.) 02/13/23 16:49 [place] % (Auto) 8.0 % (.) 02/13/23 16:49 Eos % (Auto) 2.9 % (.) 02/13/23 16:49 Baso % (Auto) 0.6 % (.) 02/13/23 16:49 Nucleat RBC Rel Count 0.1 /100 WBC (0-0.5) 02/13/23 16:49 Neut # (Auto) 8.5 x10E3/uL (1.8-7.7) H 02/13/23 16:49 Lymph # (Auto) 2.1 x10E3/uL (1.00-4.8) 02/13/23 16:49 [place] # (Auto) 1.0 x10E3/uL (0.0-0.8) H 02/13/23 [...] pH 6.0 (5.0-9.0) 02/13/23 15:49 Ur Specific [place] 1.018 (1.001-1.030) 02/13/23 15:49 Urine Protein Negative [...] Signed By: <Electronically signed by Yakov To, DO> 02/13/232134 [facility] Work Phone: History general Narrative - Reported* Type Description [...] Hospitalization History rt. heart cath Rex Stout- [facility] 05/11/16 Hospitalization History Water retention/ [facility] 02/2017 Hospitalization History [facility] 11/2017 Hospitalization History INFECTION IN LEFT SMALL TOE AND FOOT 11/2018 Hospitalization History [facility] -- ICU -- COPD, SMAL L WOUND ON LEFT FOOT 12/2019 Hospitalization History COPD [facility] [place] 12/2019 Hospitalization History Ankle wound 01/2020 Hospitalization History COVID 11/2020 Hospitalization History A-FIB, CHF, KIDNEY ISSUE S 03/2021 [facility] Other Hisgnnz general Narrative - Reported* Type Description Date [...] Hospitalization History rt. heart cath Rex Stout- [facility] 05/11/16 Hospitalization History Water retention/ [facility] 02/2017 Hospitalization History [facility] 11/2017 Hospitalization History INFECTION IN LEFT SMALL TOE AND FOOT 11/2018 Hospitalization History [facility] -- ICU -- COPD, SMAL L WOUND ON LEFT FOOT 12/2019 Hospitalization History COPD [facility] [place] 12/2019 Hospitalization History Ankle wound 01/2020 Hospitalization History COVID 11/2020 Hospitalization History A-FIB, CHF, KIDNEY ISSUE S 03/2021 [facility] Other Hisbrjb general Narrative - Reported* Type Description Date [...] Medical History VERTIGO Medical History 04/28/2022 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 failure w/hypoxia, acute on systolic chronic HF Surgical History Cardiac catherization (07/2010) Surgical History AICD insertion (11/2010) Surgical History right sided heart cath - [facility] 10/2013 Surgical History appendectomy Surgical History rt [...] Hospitalization History rt. heart cath Rex Stout- [facility] 05/11/16 Hospitalization History Water retention/ [facility] 02/2017 Hospitalization History [facility] 11/2017 Hospitalization History INFECTION IN LEFT SMALL TOE AND FOOT 11/2018 Hospitalization History [facility] -- ICU -- COPD, SMAL L WOUND ON LEFT FOOT 12/2019 Hospitalization History COPD [facility] [place] 12/2019 Hospitalization History Ankle wound 01/2020 Hospitalization History COVID 11/2020 Hospitalization History A-FIB, CHF, KIDNEY ISSUE S 03/2021 [facility] Other History general Narrative - Reported* Type [...] Medical History VERTIGO Medical History 04/28/2022 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 failure w/hypoxia, COPD excacerbation [facility] Medical History 04/28/2022-Sepsis sec ./ Para influenza PNA multifocal-[facility] Medical History 05/08/2022-Increasing shortness of breath post [...] Hospitalization History rt. heart cath Rex Stout- [facility] 05/11/16 Hospitalization History Water retention/ [facility] 02/2017 Hospitalization History [facility] 11/2017 Hospitalization History INFECTION IN LEFT SMALL TOE AND FOOT 11/2018 Hospitalization History [facility] -- ICU -- COPD, SMAL L WOUND ON LEFT FOOT 12/2019 Hospitalization History COPD [facility] [place] 12/2019 Hospitalization History Ankle wound 01/2020 Hospitalization History COVID 11/2020 Hospitalization History A-FIB, CHF, KIDNEY ISSUE S 03/2021 Hospitalization History [facility] [place] [facility] Other History general Narrative - Reported* Type [...] Medical History VERTIGO Medical History 04/28/2022 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 failure w/hypoxia, acute on systolic chronic HF Medical History [facility]- r ight great toe bleeding (not stopping) [...] Hospitalization History rt. heart cath Rex Stout- [facility] 05/11/16 Hospitalization History Water retention/ [facility] 02/2017 Hospitalization History [facility] 11/2017 Hospitalization History INFECTION IN LEFT SMALL TOE AND FOOT 11/2018 Hospitalization History [facility] -- ICU -- COPD, SMAL L WOUND ON LEFT FOOT 12/2019 Hospitalization History COPD [facility] 12/2019 Hospitalization History Ankle wound 01/2020 Hospitalization History COVID 11/2020 Hospitalization History A-FIB, CHF, KIDNEY ISSUE S 03/2021 Hospitalization History [facility] [place] Hospitalization History [facility] discha rged 03-27-2023 [facility] Other History general Narrative - Reported* Type [...] Medical History VERTIGO Medical History 04/28/2022 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 failure w/hypoxia, acute on systolic chronic HF Medical History [facility]- r ight great toe bleeding (not stopping) Medical History pneumonia-[facility] 06-05 Medical History [facility]-7-2023 Surgical History Cardiac catherization (07/2010) Surgical [...] Hospitalization History rt. heart cath Rex Stout- [facility] 05/11/16 Hospitalization History Water retention/ [facility] 02/2017 Hospitalization History [facility] 11/2017 Hospitalization History INFECTION IN LEFT SMALL TOE AND FOOT 11/2018 Hospitalization History [facility] -- ICU -- COPD, SMAL L WOUND ON LEFT FOOT 12/2019 Hospitalization History COPD [facility] 12/2019 Hospitalization History Ankle wound 01/2020 Hospitalization History COVID 11/2020 Hospitalization History A-FIB, CHF, KIDNEY ISSUE S 03/2021 Hospitalization History [facility] [place] Hospitalization History [facility] discha rged 03-27-2023 Hospitalization History [facility] x2 7-2 023 [facility] Other History general Narrative - Reported* Type [...] Medical History VERTIGO Medical History 04/28/2022 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 failure w/hypoxia, acute on systolic chronic HF Medical History [facility]- r ight great toe bleeding (not stopping) Medical History pneumonia-[facility] 06-05 Medical History [facility]-7-2023 Medical History [id number]-[facility] Surgical History Cardiac catherization (07/2010) Surgical History AICD insertion (11/2010) Surgical History right sided heart cath - [facility] 10/2013 Surgical History appendectomy Surgical History rt [...] Hospitalization History rt. heart cath Rex Stout- [facility] 05/11/16 Hospitalization History Water retention/ [facility] 02/2017 Hospitalization History Observation-[facility] 11/2017 Hospitalization History INFECTION IN LEFT SMALL TOE AND FOOT 11/2018 Hospitalization History [facility] -- ICU -- COPD, SMAL L WOUND ON LEFT FOOT 12/2019 Hospitalization History COPD [facility] [place] 12/2019 Hospitalization History Ankle wound 01/2020 Hospitalization History COVID 11/2020 Hospitalization History A-FIB, CHF, KIDNEY ISSUE S 03/2021 [place] [facility] [place] Hospitalization History [facility] discha rged 03-27-2023 Hospitalization History [facility] x2 7-2 023 Hospitalization History [facility] 10-2 023 [facility] Other History general Narrative - Reported* Type [...] Medical History [facility] Medical History 04/28/2022 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 failure w/hypoxia, acute on systolic chronic HF Medical History [facility]- r ight great toe bleeding (not stopping) Medical History pneumonia-[facility] 06-05 Medical History [facility]-7-2023 Medical History [id number]-[facility] Surgical History Cardiac catherization (07/2010) Surgical History AICD insertion (11/2010) Surgical History right sided heart cath - [facility] 10/2013 Surgical History appendectomy Surgical History rt [...] Hospitalization History rt. heart cath Rex Stout- [facility] 05/11/16 Hospitalization History Water retention/ [facility] 02/2017 Hospitalization History [facility] 11/2017 Hospitalization History INFECTION IN LEFT SMALL TOE AND FOOT 11/2018 Hospitalization History [facility] -- ICU -- COPD, SMAL L WOUND ON LEFT FOOT 12/2019 Hospitalization History COPD [facility] [place] 12/2019 Hospitalization History Ankle wound 01/2020 Hospitalization History COVID 11/2020 Hospitalization History A-FIB, CHF, KIDNEY ISSUE S 03/2021 Hospital[place] [facility] [place] Hospitalization History [facility] discha rged 03-27-2023 Hospitalization History [facility] x2 7-2 023 Hospitalization History [facility] -2 023 Hospitalization History [facility] rib fx left Hospitalization History [facility] -pnemo jennifer [facility] Other History general Narrative - Reported* Type [...] Medical History [facility] Medical History 04/28/2022 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 failure w/hypoxia, acute on systolic chronic HF Medical History [facility]- r ight great toe bleeding (not stopping) Medical History pneumonia-[facility] 06-05 Medical History [facility]-7-2023 Medical History [id number]-[facility] Medical History NON RESPONSIVE X 2 IN THE LAST 6 WEEKS Surgical History Cardiac catherization (07/2010) Surgical History AICD insertion (11/2010) Surgical History right sided heart cath - [facility] 10/2013 Surgical History appendectomy Surgical History rt [...] Hospitalization History rt. heart cath Rex Stout- [facility] 05/11/16 Hospitalization History Water retention/ [facility] 02/2017 Hospitalization History Observation-[facility] 11/2017 Hospitalization History INFECTION IN LEFT SMALL TOE AND FOOT 11/2018 Hospitalization History [facility] -- ICU -- COPD, SMAL L WOUND ON LEFT FOOT 12/2019 Hospitalization History COPD [facility] [place] 12/2019 Hospitalization History Ankle wound 01/2020 Hospitalization History COVID 11/2020 Hospitalization History A-FIB, CHF, KIDNEY ISSUE S 03/2021 [place] [facility] [place] Hospitalization History [facility] discha rged - Hospitalization History [facility] x2 7-2 023 Hospitalization History RSV-[facility] 10-2 023 Hospitalization History [facility] rib fx left Hospitalization History [facility] -pnemo jennifer [facility] Other History general Narrative - Reported* Type [...] Obstructive sleep apnea (adult) (pediatric) Medical History diabetic neuropathy Medical History type II diabetes Medical History ventricylar tachycardia Medical History diverticulitis Medical History COVID 11/2020 Medical History CHF, AND A-FIB Medical History [facility] Medical History 04/28/2022 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 failure w/hypoxia, acute on systolic chronic HF Medical History [facility]- r ight great toe bleeding (not stopping) Medical History pneumonia-[facility] 06-05 Medical History [facility]-7-2023 Medical History [id number]-[facility] Medical History NON RESPONSIVE X 2 IN THE LAST 6 WEEKS Surgical History Cardiac catherization (07/2010) Surgical History AICD insertion (11/2010) Surgical History right sided heart cath - [facility] 10/2013 Surgical History appendectomy Surgical History rt heart cath 05/11/16 Surgical History pacemaker 07/2016 Surgical History SKIN GRAFT-FROM LEFT LEG TO LEF T FOOT 10/2018 Surgical History LEFT SMALL TOE AMPUTATION WITH SOME FOOT BONE 11/2018 Surgical History COLONOSCOPY AND EGD [facility] Surgical History amputation left fifth toe Surgical History Ankle I/D LEFT 01/2020 Surgical History Left heel skin graft 03/29/2020 Surgical History SKIN GRAFT TO LEFT FOOT 03/2020 Surgical History CATARACT REMOVED ON RIGHT EYE Surgical History CATARACT REMOVED FROM LEFT EYE 06/2021 Hospitalization History see surgical hx Hospitalization History rt. heart cath Rex Stout- [facility] 05/11/16 Hospitalization History Water retention/ [facility] 02/2017 Hospitalization History Observation-[facility] 11/2017 Hospitalization History INFECTION IN LEFT SMALL TOE AND FOOT 11/2018 Hospitalization History [facility] -- ICU -- COPD, SMAL L WOUND ON LEFT FOOT 12/2019 Hospitalization History COPD [facility] [place] 12/2019 Hospitalization History Ankle wound 01/2020 Hospitalization History COVID 11/2020 Hospitalization History A-FIB, CHF, KIDNEY ISSUE S 03/2021 Hospital[place] [facility] [place] Hospitalization History [facility] discha rged 03-27-2023 Hospitalization History [facility] x2 7-2 023 Hospitalization History [facility] 10-2 023 Hospitalization History [facility] rib fx left Hospitalization History [facility] -pnemo jennifer [facility] Other Progress note Author Ethan Cummings [facility] December 04, 2022 1:47pm Note Date/Time December 04, 2022 1 :44pm [facility] at [address] [address] Hem/Onc Follow Up Note - OP Signed Patient: Adwoa Porter MR#: [id number] : 1955 Acct:[id number] Age/Sex: 67 / M Type: REG RCR [...] hs BCR/ABL was negative. Recent hospitalization at [place] for COVID PNA. He had also a [...] for coordination of care (as documented) and [id number] counseling of patient and/or family. [facility] - Medical History Medical History: Medical History [...] % (Auto) 67.1, Lymph % (Auto) 20.5, [place] % (Auto) 8.2, Eos % (Auto) 3.5, Baso % (Auto) 0.7, Nucleat RBC Rel Count 0.1, Neut # (Auto) 7.9 H, Lymph # (Auto) 2.4, [place] # (Auto) 1.0 H, Eos # (Auto) [...] dulaglutide 4.5 mg/0.5 mL subcutaneous pen injector ([facility]) See Rx Instructions .Route .COMPLEX 04/10/22 [History [...] by Ethan Cummings II, DO> 12/04/22 134[address] [facility] Work Phone: Advance Directives Advance Directive Response Recorded Date/ Time Advance Directives No July 2:42pm Advance Directive Response Recorded Date/ Time Advance Directives No July 1:42pm Chief Complaint and Reason for Visit Chief Complaint Right great toe woun d Reason for Visit Cellulitis of left t oe Controlled type 2 diabetes mellitus with diabetic polyneuropathy [id number] Chief Complaint DM Obstructive sleep apnea Chief Complaint DM Leukocytosis Reason for Visit Leukocytosis Chief Complaint Leukocytosis DM sent by dyalisis Reason for Visit Leukocytosis SHIRA (acute kidney injury) Cardiomyopathy Elevated serum creatinine Elevated troponin Hyperglycemia Hypokalemia Hyponatremia Metabolic alkalosis with respiratory acidosis CKD (chronic kidney disease) stage 3, GFR 30-59 ml/min Obstructive sleep apnea Paroxysmal A-fib Chief Complaint Leukocytosis DM sent by dyalisis E87.6 I48.0 Reason for Visit Leukocytosis SHIRA (acute kidney injury) Cardiomyopathy Elevated serum creatinine Elevated troponin Hyperglycemia Hypokalemia Hyponatremia Metabolic alkalosis with respiratory acidosis CKD (chronic kidney disease) stage 3, GFR 30-59 ml/min Obstructive sleep apnea Paroxysmal A-fib Chief Complaint Download Renal F/U Hosp Follow Up, Rib Fx DM Amb Documentation Chief Complaint Renal F/U Hosp Follow Up, Rib Fx DM Amb Documentation Assessments Diagnosis Onset Date Resolution Status Cellulitis of left toe acute 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 Would like him to be seen by wound care for follow up. Thank you! Diagnosis 1 Burn of single finge r of left hand except thumb, unspecified burn degree, initial encounter (T23.022A) Referral Organization [facility] Referring Provider First Name Gisselle Referring Provider Last Name Noble Referring Provider Specialty Nurse Pract itioner Referred Organization [facility] Referred Address [address] [facility],[place], [place],[address] Referred Provider Specialty Wound Care Referral Priority Routine General Notes Lennie Mcghee 022 12:46:37 PM >Received today and waiting for office notes to be locked before sending referral Lennie Mcghee 10/03/2022 03:00:03 PM >Referral was fax Clinical Notes Office [phone] Reason * FU 02/13 lumbar arthritis/pain - [place] Diagnosis 1 Lumbar and sacral ar thritis (M48.9) Referral Organization [facility] Referring Provider First Name Vinnie Referring Provider Last Name Terry Referring Provider Specialty Family Prac yamil Referred Organization [facility] Referred Address [address] [place], [place],[address] Referred Provider Specialty Pain Medicin e Referral Priority Routine General Notes Doris Modi 12:58:37 PM > referral received and faxed Additional Source Comments (unrecognized sect ion and content) No Status Records FoundNo Status Records FoundNo Status Records FoundNo Status Records FoundNo Status Records FoundNo Status Records FoundNo Status Records Found INFORMATION SOURCE (unrecogn ized section and content) DATE CREATED AUTHOR 11/17/[address] [facility] DATE CREATED AUTHOR AUTHOR'S ORGANIZ ATION 03/05/2022 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 ncentratorDM, Needs to reapply for PAP, Type 2 IDDM, [facility] [address] FOLLOW UP, Patient will mail PAP back when he is done 10-05-21DS Trulicity RefillAPPT CANCELLEDDS Voicemail/ Diabetic ShoesXRAY RESULTSappt question-DS Patient Assistance Renewal/APPROVEDDM 6 week f/u, Type 2 IDDM, [facility], [facility] Visit CodesMED REFILLDS please call/ Diabetic shoes [...] F/U - pneumonia, SOB, Pt was at [facility], He said he went in on 06/12 and was dc 06/16, He said he is feeling betterDS DM appt CxFallrefillDS Sensor refillDM, DM, DM follow up, Type 2 IDDM, LUCAS 2, [facility] Visit CodesD/Ctrouble breathingrefillDS Returning clinic's callFINGER PAINDS please callsickCKD and HTNburns left handrefillrefillDS Needs [facility]ound Care Referral Updatemed refillHosp d/c Farxiga and JardianceD/C [facility] reviewrefillDM follow up, DM, DM, DM follow up, Type 2 IDDM, LUCAS 2, [facility] Visit Codes, In-patient [facility]-10/18-10/24/2022, [facility] Visit CodesconsultDeclined servicesStein Hospice ReferraldownloadStein Hospice ReferralNo BvilebqtqcdH5Dt requestDS PAP Basaglar/TrulicityDS VoicemailrefillHOSPITAL VISIT, Acute on chronic systolic CHFrefillupdatefall, bruise, lump on back near L shoulderbalance issuesrefillHOSPITAL FOLLOW [facility]No Informationrefillbruising all over, difficulty walkingDS N/S [...] Downloaddownloadfollow w/ home health orders:DS N/S DM 11/01/2023pptFYI- DM appt/ recommendationsDM, PAP DIABETES MEDS, Type 2 IDDM, LUCAS 2CKD and HTNhosp follow up, rib fx, [facility] w/ [facility] left message this afternoon regarding pt, multiple falls at home., Pt here w/ [facility] his fiance, for hospital follow up for L side L fracture from getting out of the shower w/o help. [facility] say she usually helps him get out. Pt is in wheelchair today. Pt says he is using a walker and cane in the home, has a walker for outside use too., Per [facility], Home health did recheck and wrap legs today. Pt asking for PT for home.hydrocodoneNo InformationHydrocodone/AcetFall/ UTI symptomsconcernsdownloadDS Home Health Care Teams (unrecognized sec tion and content) Team Status: Active Member Role Status Dates Vinnie Stewart DO Primary Care Provider Active Team Status: Inactive Member Role Status Dates Brittnee Spain APRN Attending Provider Active Start: October 08, 2023 End: October 08, 2023 Team Status: Inactive Member Role Status Dates Brittnee Spain APRN Attending Provider Active Start: November 13, 2023 End: November 13, 2023 Team Status: Inactive Member Role Status Dates Simba Kaufman MD Attending Provider Active Start : November 15, 2023 End: November 15, 2023 Team Status: Inactive Member Role Status Dates Vinnie Stewart DO Attending Provider Active S tart: November 22, 2023 End: November 22, 2023 Team Status: Inactive Member Role Status Dates Vinnie Stewart DO Primary Care Provider Active Start: December 10, 2023 End: December 10, 2023 Nicolette Manzano APRN Attending Provider Active Start: December 10, 2023 End: December 10, 2023 Team Status: Active Member Role Status Dates Vinnie Stewart , DO Primary Care Provider Active Start: December 11, 2023 BEKA Caro Attending Provider Active Start: December 11, 2023 Team Status: Active Member Role Status Dates [...] BE BASED ON THE PRIMARY CLINICAL RECORDS. [employer] provides no warranty or guarantee of the accuracy or completeness of information in this document.
[2024-01-15] MEDS: CARVEDILOL 25 MG TABLET PO (22:07)
[2024-01-15] MEDS: POTASSIUM CHLORIDE 10 MEQ ER TABLET 20 MEQ PO (22:08)
[2024-01-15] MEDS: GABAPENTIN 400 MG CAPSULE PO (22:08)
[2024-01-15] MEDS: VANCOMYCIN HCL 1,250 MG in 0.9 % SODIUM CHLORIDE 500 ML 250 MG IV (22:14)
[2024-01-15 22:17] LABS: Glucometer 151 mg/dL (74-106)
[2024-01-15] MEDS: PIPERACILLIN SODIUM/TAZOBACTAM 3.375 GM in 0.9 % SODIUM CHLORIDE 50 ML IV (22:30)
[2024-01-16] VITALS (21 sets, daily range): BP systolic 119–133; BP diastolic 69–77; PULSE 82–89; RESP 16–20; TEMP 36.4–36.8; O2SAT 86–98
[2024-01-16] MEDS: POTASSIUM CHLORIDE IN 0.9%NACL 1,000 ML 250 MEQ IV (01:52)
[2024-01-16 05:41] LABS: Basophils Absolute Auto 0.1 10^3/uL (0.0-0.1); Basophils Percent Auto 0.2 % (0.2-2.0); Eosinophils Absolute Auto 0.3 10^3/uL (0.0-0.7); Eosinophils Percent Auto 1.1 % (0.9-7.0); Hematocrit 38.1 % (42.0-54.0); Hemoglobin 12.4 g/dL (14.0-18.0); Immature Granulocytes Abs Auto 0.15 10^3/uL (0.00-0.03); Immature Granulocytes Pct Auto 0.7 % (0.0-0.5); Lymphocytes Absolute Auto 1.5 10^3/uL (1.2-3.8); Lymphocytes Percent Auto 6.6 % (20.5-60.0); Mean Corpuscular HGB Conc 32.5 g/dL (29.9-35.2); Mean Corpuscular Hemoglobin 27.1 pg (25.9-34.0); Mean Corpuscular Volume 83.4 fL (80.0-94.0); Mean Platelet Volume 9.4 fL (9.5-13.5); Monocytes Absolute Auto 1.4 10^3/uL (0.3-0.8); Monocytes Percent Auto 6.2 % (1.7-12.0); Neutrophils Absolute Auto 19.4 10^3/uL (1.4-6.5); Neutrophils Percent Auto 85.2 % (43.0-75.0); Platelet Count 365 10^3/uL (150-450); Red Blood Count 4.57 10^6/uL (4.70-6.10); Red Cell Distribution Width 15.9 % (11.0-15.0); White Blood Count 22.8 10^3/uL (4.0-11.0)
[2024-01-16] MEDS: POTASSIUM CHLORIDE 10 MEQ ER TABLET 20 MEQ PO ×2 (05:59→13:30)
[2024-01-16] MEDS: PIPERACILLIN SODIUM/TAZOBACTAM 3.375 GM in 0.9 % SODIUM CHLORIDE 50 ML IV ×3 (05:59→20:01)
[2024-01-16] MEDS: LEVOTHYROXINE SODIUM 25 MCG TABLET 50 MCG PO (06:00)
[2024-01-16 06:12] LABS: Magnesium 2.2 mg/dL (1.8-2.4); Troponin I High Sensitivity 36.8 pg/mL (4.0-76.1)
[2024-01-16 06:23] LABS: Alanine Aminotransferase 26 U/L (16-63); Albumin Globulin Ratio 0.3; Albumin Level 1.8 g/dL (3.4-5.0); Alkaline Phosphatase 200 U/L (46-116); Anion Gap 9.5; Aspartate Amino Transferase 41 U/L (15-37); BUN Creatinine Ratio 28.5; Bilirubin Total 0.9 mg/dL (0.2-1.0); Calcium 8.2 mg/dL (8.5-10.1); Chloride 95 mmol/L (98-107); Estimated GFR (African America 56 (>=60); Estimated GFR (Non-African Ame 46 (>=60); Globulin 5.7 g/dL; Glucose 187 mg/dL (74-106); Potassium 3.5 mmol/L (3.5-5.1); Sodium 133 mmol/L (136-145); Total Protein 7.5 g/dL (6.4-8.2)
[2024-01-16 07:27] LABS: Glucometer 192 mg/dL (74-106)
[2024-01-16 08:51] LABS: PROCALCITONIN 0.61 ng/mL (0.00-0.50)
[2024-01-16 08:58] LABS: INR 1.36; Prothrombin Time 14.2 sec (9.0-11.6)
[2024-01-16 09:18] LABS: Adenovirus NOT DETECTED (NOT DETECTE); Bordetella parapertussis NOT DETECTED (NOT DETECTE); Coronavirus 229E NOT DETECTED (NOT DETECTE); Coronavirus HKU1 NOT DETECTED (NOT DETECTE); Coronavirus NL63 NOT DETECTED (NOT DETECTE); Coronavirus OC43 NOT DETECTED (NOT DETECTE); Human Metapneumovirus NOT DETECTED (NOT DETECTE); Human Rhinovirus/Enterovirus NOT DETECTED (NOT DETECTE); Influenza A NOT DETECTED (NOT DETECTE); Influenza B NOT DETECTED (NOT DETECTE); Mycoplasma pneumoniae NOT DETECTED (NOT DETECTE); Parainfluenza Virus 1 NOT DETECTED (NOT DETECTE); Parainfluenza Virus 2 NOT DETECTED (NOT DETECTE); Parainfluenza Virus 3 NOT DETECTED (NOT DETECTE); Parainfluenza Virus 4 NOT DETECTED (NOT DETECTE); Respiratory Syncytial Virus NOT DETECTED (NOT DETECTE); SARS-CoV-2 NOT DETECTED (NOT DETECTE)
--- NOTE | 2024-01-16 09:29 | XR_ITS ---
The [address] [address] Patient Name: ADWOA PORTER MRN: [id number] date: 1955 Sex: M Assigned Patient Location: [place] Current Patient Location: [place] Accession/Order Number: [id number] Exam Date: 01/16/2024 09:18 Report Date: 01/16/2024 09:44 At the request of: NIK BUNN Procedure: XR chest 1V EXAM: XR chest 1V HISTORY: sepsis, short of breath COMPARISON: CT chest study dated 11/01/2023 TECHNIQUE: AP view of the chest was obtained with portable technique at 0853 hours. FINDINGS: Heart is borderline normal in size. Pacemaker seen on the left similar to the prior study. No obvious pneumothorax. Mild prominence of interstitial markings, consider edema related to congestive changes and/or infiltrates. No obvious consolidation. Mild degenerative changes in the dorsal spine. XR/XR chest 1V IMPRESSION: Consider mild congestive and/or interstitial infiltrative changes as noted. Electronically authenticated by: DAHLIA MINA Date: 01/16/2024 09:44
[2024-01-16] MEDS: INSULIN ASPART 300 UNIT/3 ML PEN SUBQ ×4 (09:34→21:27)
[2024-01-16] MEDS: ASPIRIN 81 MG TABLET.DR PO (09:36)
[2024-01-16] MEDS: CARVEDILOL 25 MG TABLET PO ×2 (09:36→21:25)
[2024-01-16] MEDS: SPIRONOLACTONE 25 MG TABLET PO (09:36)
--- NOTE | 2024-01-16 09:37 | SWNOTE1 ---
SW received message from nurse and pt wants to go to [facility]. SW to check with [facility] to see if they can do a one time contract. SW to speak with pt.
[2024-01-16] MEDS: METOLAZONE 2.5 MG TABLET PO (09:38)
[2024-01-16] MEDS: ATORVASTATIN CALCIUM 40 MG TABLET 80 MG PO (09:38)
[2024-01-16] MEDS: ISOSORBIDE DINITRATE 20 MG TABLET PO ×2 (09:39→17:27)
[2024-01-16] MEDS: DIGOXIN 125 MCG TABLET PO (09:39)
[2024-01-16] MEDS: POTASSIUM CHLORIDE 10 MEQ ER TABLET 40 MEQ PO (09:39)
[2024-01-16] MEDS: GABAPENTIN 400 MG CAPSULE PO ×2 (09:39→21:25)
[2024-01-16] MEDS: 0.9 % SODIUM CHLORIDE 1,000 ML 100 ML IV (09:42)
--- NOTE | 2024-01-16 09:43 | PHOTOS ---
left lateral/dorsal foot
--- NOTE | 2024-01-16 09:47 | SWNOTE1 ---
ANDREW had long conversation with pt's son on phone. Pt broke up with his girlfriend a few months ago. Pt's girlfriend was HCPOA, they are looking to see if pt will complete another one. SW to check. Pt's son and pt's daughter are trying to assist pt as best as they can. Pt has had falls at home and son feels he needs 24/7 care. SW and pt's son spoke about rehab and then transitioning in to half-way. SW let son know that pt will need to apply for medicaid, as he voiced they do not have funds for [facility]. SW printed medicaid renaldo and left in room for son, he will be coming today. He has to gather pt's income information. Pt's son does voice understanding about rehab and half-way. Pt's son also is looking to get pt's medication information and who all his doctors are etc. SW did voice he may have to go through medical records to get his medical information and pt would need to agree with this. ANDREW to speak with pt and will call son back.
--- NOTE | 2024-01-16 09:58 | CT_ITS ---
[address] [address] Patient Name: ADWOA PORTER MRN: [id number] date: 1955 Sex: M Assigned Patient Location: MS Current Patient Location: [place] Accession/Order Number: [id number] Exam Date: 01/16/2024 10:45 Report Date: 01/16/2024 11:58 At the request of: KIRAN BOO Procedure: CT knee RT wo con EXAMINATION: CT knee LT wo con, CT foot RT wo con, CT knee RT wo con, CT foot LT wo con HISTORY: r/o septic joint COMPARISON: No relevant comparison available. TECHNIQUE: Multi-planar CT images were created without IV contrast. Dose reduction techniques were achieved by using automated exposure control and/or adjustment of mA and/or kV according to patient size and/or use of iterative reconstruction technique. RIGHT KNEE: FINDINGS: BONES: No acute fracture or dislocation. Mild osteoarthropathy. Mild narrowing of the medial joint space. No focal lytic or sclerotic changes to suggest osteomyelitis SOFT TISSUES: Mild prepatellar soft tissue swelling, skin thickening and suspected skin wounds. Vascular calcifications EFFUSION: Small amount of fluid in the suprapatellar bursa felt to be within normal limits OTHER: Negative. CT/CT knee RT wo con IMPRESSION: Anterior subcutaneous soft tissue injury with no acute bony abnormality. LEFT KNEE: FINDINGS: BONES: No acute fracture or dislocation. Mild osteoarthropathy. Mild narrowing of the medial joint space. No focal lytic or sclerotic changes to suggest osteomyelitis SOFT TISSUES: Mild prepatellar soft tissue swelling and skin thickening with multiple suspected wounds. Moderate diffuse atherosclerosis EFFUSION: None visible. OTHER: Negative. IMPRESSION: Anterior subcutaneous soft tissue injury with no acute bony abnormality RIGHT FOOT: FINDINGS: BONES: No acute fracture or dislocation. Lytic changes at the first interphalangeal joint. Fusion of the anterior and middle talocalcaneal joints. Moderate degenerative changes with joint space narrowing and marginal osteophyte formation . No focal lytic or sclerotic changes to suggest osteomyelitis SOFT TISSUES: Soft tissue thickening, stranding and subcutaneous air posterior heel. Vascular calcifications EFFUSION: None visible. OTHER: Negative. IMPRESSION: Subcutaneous heel soft tissue injury with no acute bony abnormality LEFT FOOT: FINDINGS: BONES: Amputation of the first toe along the proximal diaphysis of the proximal phalanx. Amputation of the fifth toe distal diaphysis of the fifth metatarsal. Moderate degenerative changes with joint space narrowing and marginal osteophyte formation. Fusion of the anterior middle talocalcaneal joints. No focal lytic or sclerotic lesions of the bones to suggest osteomyelitis SOFT TISSUES: Soft tissue swelling, skin thickening and subcutaneous emphysema noted along the plantar forefoot. Vascular calcifications EFFUSION: None visible. OTHER: Negative. IMPRESSION: Plantar soft tissue injury with no acute bony abnormality Electronically authenticated by: BALBIR CABALLERO Date: 01/16/2024 11:58
--- NOTE | 2024-01-16 09:58 | CT_ITS ---
[address] [address] Patient Name: ADWOA PORTER MRN: [id number] date: 1955 Sex: M Assigned Patient Location: MS Current Patient Location: MS Accession/Order Number: [id number] Exam Date: 01/16/2024 10:45 Report Date: 01/16/2024 11:58 At the request of: KIRAN BOO Procedure: CT foot LT wo con EXAMINATION: CT knee LT wo con, CT foot RT wo con, CT knee RT wo con, CT foot LT wo con HISTORY: r/o septic joint COMPARISON: No relevant comparison available. TECHNIQUE: Multi-planar CT images were created without IV contrast. Dose reduction techniques were achieved by using automated exposure control and/or adjustment of mA and/or kV according to patient size and/or use of iterative reconstruction technique. RIGHT KNEE: FINDINGS: BONES: No acute fracture or dislocation. Mild osteoarthropathy. Mild narrowing of the medial joint space. No focal lytic or sclerotic changes to suggest osteomyelitis SOFT TISSUES: Mild prepatellar soft tissue swelling, skin thickening and suspected skin wounds. Vascular calcifications EFFUSION: Small amount of fluid in the suprapatellar bursa felt to be within normal limits OTHER: Negative. CT/CT foot LT wo con IMPRESSION: Anterior subcutaneous soft tissue injury with no acute bony abnormality. LEFT KNEE: FINDINGS: BONES: No acute fracture or dislocation. Mild osteoarthropathy. Mild narrowing of the medial joint space. No focal lytic or sclerotic changes to suggest osteomyelitis SOFT TISSUES: Mild prepatellar soft tissue swelling and skin thickening with multiple suspected wounds. Moderate diffuse atherosclerosis EFFUSION: None visible. OTHER: Negative. IMPRESSION: Anterior subcutaneous soft tissue injury with no acute bony abnormality RIGHT FOOT: FINDINGS: BONES: No acute fracture or dislocation. Lytic changes at the first interphalangeal joint. Fusion of the anterior and middle talocalcaneal joints. Moderate degenerative changes with joint space narrowing and marginal osteophyte formation . No focal lytic or sclerotic changes to suggest osteomyelitis SOFT TISSUES: Soft tissue thickening, stranding and subcutaneous air posterior heel. Vascular calcifications EFFUSION: None visible. OTHER: Negative. IMPRESSION: Subcutaneous heel soft tissue injury with no acute bony abnormality LEFT FOOT: FINDINGS: BONES: Amputation of the first toe along the proximal diaphysis of the proximal phalanx. Amputation of the fifth toe distal diaphysis of the fifth metatarsal. Moderate degenerative changes with joint space narrowing and marginal osteophyte formation. Fusion of the anterior middle talocalcaneal joints. No focal lytic or sclerotic lesions of the bones to suggest osteomyelitis SOFT TISSUES: Soft tissue swelling, skin thickening and subcutaneous emphysema noted along the plantar forefoot. Vascular calcifications EFFUSION: None visible. OTHER: Negative. IMPRESSION: Plantar soft tissue injury with no acute bony abnormality Electronically authenticated by: BALBIR CABALLERO Date: 01/16/2024 11:58
--- NOTE | 2024-01-16 09:58 | CT_ITS ---
[address] [address] Patient Name: ADWOA PORTER MRN: [id number] date: 1955 Sex: M Assigned Patient Location: MS Current Patient Location: MS Accession/Order Number: [id number] Exam Date: 01/16/2024 10:45 Report Date: 01/16/2024 11:58 At the request of: KIRAN BOO Procedure: CT foot RT wo con EXAMINATION: CT knee LT wo con, CT foot RT wo con, CT knee RT wo con, CT foot LT wo con HISTORY: r/o septic joint COMPARISON: No relevant comparison available. TECHNIQUE: Multi-planar CT images were created without IV contrast. Dose reduction techniques were achieved by using automated exposure control and/or adjustment of mA and/or kV according to patient size and/or use of iterative reconstruction technique. RIGHT KNEE: FINDINGS: BONES: No acute fracture or dislocation. Mild osteoarthropathy. Mild narrowing of the medial joint space. No focal lytic or sclerotic changes to suggest osteomyelitis SOFT TISSUES: Mild prepatellar soft tissue swelling, skin thickening and suspected skin wounds. Vascular calcifications EFFUSION: Small amount of fluid in the suprapatellar bursa felt to be within normal limits OTHER: Negative. CT/CT foot RT wo con IMPRESSION: Anterior subcutaneous soft tissue injury with no acute bony abnormality. LEFT KNEE: FINDINGS: BONES: No acute fracture or dislocation. Mild osteoarthropathy. Mild narrowing of the medial joint space. No focal lytic or sclerotic changes to suggest osteomyelitis SOFT TISSUES: Mild prepatellar soft tissue swelling and skin thickening with multiple suspected wounds. Moderate diffuse atherosclerosis EFFUSION: None visible. OTHER: Negative. IMPRESSION: Anterior subcutaneous soft tissue injury with no acute bony abnormality RIGHT FOOT: FINDINGS: BONES: No acute fracture or dislocation. Lytic changes at the first interphalangeal joint. Fusion of the anterior and middle talocalcaneal joints. Moderate degenerative changes with joint space narrowing and marginal osteophyte formation . No focal lytic or sclerotic changes to suggest osteomyelitis SOFT TISSUES: Soft tissue thickening, stranding and subcutaneous air posterior heel. Vascular calcifications EFFUSION: None visible. OTHER: Negative. IMPRESSION: Subcutaneous heel soft tissue injury with no acute bony abnormality LEFT FOOT: FINDINGS: BONES: Amputation of the first toe along the proximal diaphysis of the proximal phalanx. Amputation of the fifth toe distal diaphysis of the fifth metatarsal. Moderate degenerative changes with joint space narrowing and marginal osteophyte formation. Fusion of the anterior middle talocalcaneal joints. No focal lytic or sclerotic lesions of the bones to suggest osteomyelitis SOFT TISSUES: Soft tissue swelling, skin thickening and subcutaneous emphysema noted along the plantar forefoot. Vascular calcifications EFFUSION: None visible. OTHER: Negative. IMPRESSION: Plantar soft tissue injury with no acute bony abnormality Electronically authenticated by: BALBIR CABALLERO Date: 01/16/2024 11:58
--- NOTE | 2024-01-16 09:58 | CT_ITS ---
[address] [address] Patient Name: ADWOA PORTER MRN: [id number] date: 1955 Sex: M Assigned Patient Location: MS Current Patient Location: MS Accession/Order Number: [id number] Exam Date: 01/16/2024 10:45 Report Date: 01/16/2024 11:58 At the request of: KIRAN BOO Procedure: CT knee LT wo con EXAMINATION: CT knee LT wo con, CT foot RT wo con, CT knee RT wo con, CT foot LT wo con HISTORY: r/o septic joint COMPARISON: No relevant comparison available. TECHNIQUE: Multi-planar CT images were created without IV contrast. Dose reduction techniques were achieved by using automated exposure control and/or adjustment of mA and/or kV according to patient size and/or use of iterative reconstruction technique. RIGHT KNEE: FINDINGS: BONES: No acute fracture or dislocation. Mild osteoarthropathy. Mild narrowing of the medial joint space. No focal lytic or sclerotic changes to suggest osteomyelitis SOFT TISSUES: Mild prepatellar soft tissue swelling, skin thickening and suspected skin wounds. Vascular calcifications EFFUSION: Small amount of fluid in the suprapatellar bursa felt to be within normal limits OTHER: Negative. CT/CT knee LT wo con IMPRESSION: Anterior subcutaneous soft tissue injury with no acute bony abnormality. LEFT KNEE: FINDINGS: BONES: No acute fracture or dislocation. Mild osteoarthropathy. Mild narrowing of the medial joint space. No focal lytic or sclerotic changes to suggest osteomyelitis SOFT TISSUES: Mild prepatellar soft tissue swelling and skin thickening with multiple suspected wounds. Moderate diffuse atherosclerosis EFFUSION: None visible. OTHER: Negative. IMPRESSION: Anterior subcutaneous soft tissue injury with no acute bony abnormality RIGHT FOOT: FINDINGS: BONES: No acute fracture or dislocation. Lytic changes at the first interphalangeal joint. Fusion of the anterior and middle talocalcaneal joints. Moderate degenerative changes with joint space narrowing and marginal osteophyte formation . No focal lytic or sclerotic changes to suggest osteomyelitis SOFT TISSUES: Soft tissue thickening, stranding and subcutaneous air posterior heel. Vascular calcifications EFFUSION: None visible. OTHER: Negative. IMPRESSION: Subcutaneous heel soft tissue injury with no acute bony abnormality LEFT FOOT: FINDINGS: BONES: Amputation of the first toe along the proximal diaphysis of the proximal phalanx. Amputation of the fifth toe distal diaphysis of the fifth metatarsal. Moderate degenerative changes with joint space narrowing and marginal osteophyte formation. Fusion of the anterior middle talocalcaneal joints. No focal lytic or sclerotic lesions of the bones to suggest osteomyelitis SOFT TISSUES: Soft tissue swelling, skin thickening and subcutaneous emphysema noted along the plantar forefoot. Vascular calcifications EFFUSION: None visible. OTHER: Negative. IMPRESSION: Plantar soft tissue injury with no acute bony abnormality Electronically authenticated by: BALBIR CABALLERO Date: 01/16/2024 11:58
--- NOTE | 2024-01-16 10:06 | SWNOTE1 ---
Nurse practitioner was getting ready to see pt. SW did speak with pt briefly and he does want to go to [facility] for short term rehab stay. SW did express to pt that [facility] is not in network but sometimes can do a 1 time contract. SW to stop back in after nurse practitioner sees pt. ANDREW updated [employer].
[2024-01-16] MEDS: HYDROCODONE/ACET 5-325 MG TABLET 1 TAB PO (10:19)
--- NOTE | 2024-01-16 10:24 | SWNOTE1 ---
Information sent to [facility]. This included ER note, face sheet, labs, vitals, med list, diagnostic imaging, and nursing notes.
[2024-01-16 10:45] LABS: A. calcoaceticus-baumannii Cpx NOT DETECTED (NOT DETECTE); Bacteroides fragilis NOT DETECTED (NOT DETECTE); Candida albicans NOT DETECTED (NOT DETECTE); Candida auris NOT DETECTED (NOT DETECTE); Candida glabrata NOT DETECTED (NOT DETECTE); Candida krusei NOT DETECTED (NOT DETECTE); Candida parapsilosis NOT DETECTED (NOT DETECTE); Candida tropicalis NOT DETECTED (NOT DETECTE); Cryptococcus neoformans/gattii NOT DETECTED (NOT DETECTE); Enterobacter cloacae complex NOT DETECTED (NOT DETECTE); Enterobacterales NOT DETECTED (NOT DETECTE); Enterococcus faecalis NOT DETECTED (NOT DETECTE); Enterococcus faecium NOT DETECTED (NOT DETECTE); Haemophilus influenzae NOT DETECTED (NOT DETECTE); Klebsiella aerogenes NOT DETECTED (NOT DETECTE); Klebsiella pneumoniae group NOT DETECTED (NOT DETECTE); Listeria monocytogenes NOT DETECTED (NOT DETECTE); Neisseria meningitidis NOT DETECTED (NOT DETECTE); Proteus spp. NOT DETECTED (NOT DETECTE); Pseudomonas aeruginosa NOT DETECTED (NOT DETECTE); Salmonella spp. NOT DETECTED (NOT DETECTE); Serratia marcescens NOT DETECTED (NOT DETECTE); Staphylococcus epidermidis NOT DETECTED (NOT DETECTE); Staphylococcus lugdunensis NOT DETECTED (NOT DETECTE); Stenotrophomonas maltophilia NOT DETECTED (NOT DETECTE); Streptococcus agalactiae NOT DETECTED (NOT DETECTE); Streptococcus pneumoniae NOT DETECTED (NOT DETECTE); Streptococcus pyogenes NOT DETECTED (NOT DETECTE); Streptococcus spp. NOT DETECTED (NOT DETECTE)
--- NOTE | 2024-01-16 10:53 | W.PM.WC ---
Wound Consult Note Assessment and Plan (1) Chronic wound of extremity: Plan Consult: BLE ulcers Consulted to see patient for chronic ulcerations to bilateral feet, as well as abrasions to BLE, bilateral knees, and ulcerations to bilateral hands. Patient known to our outpatient wound center well. He was to see us in outpatient clinic and daughter canceled appointment due to him not feeling well and stated she could not even get him out of the chair and did not know how she would get him to the emergency department. She was instructed to call EMS to assist patient and have him transported to the nearest emergency department. Patient sitting up in bed and eating breakfast. He consents to skin assessment while eating. Patient has bilateral heel ulcerations. Ulcer to his left heel is 50% pink, nongranular and 50% dark eschar. Minimal drainage noted. No redness to periwound. Does have some callus tissue noted. Measures 4.2cmx2.1cmx0.3cm. Ulcer to his right heel is 100% black with wound edges loose. Does have a very small area to the edge of eschar tissue that is pink at 5:00 area. Eschar is dry and intact otherwise. No flutuance noted. Minimal drainage noted on bedding. Measures 5.8cmx5.2dkk9vy. There is an open area to patient's right second toe that is dry. Measures 1.1cmx0.8cmx0.1cm Ulcer to left plantar/lateral foot. Area wraps around the outside of the patient's foot and is 100% devitalized tissue with a mix of dried callus and black eshar. Appears that this area possibly started as a large blister as the skin to the plantar surface of his foot is ripped off and has irregular edges. Under the loose, thick skin is a collection of old drainage (blood/body fluid) that has an odor. This area is fluctuant and concern that under the surface may be more extensive than what is present on the surface. Entire area/including the remaining loose skin measures [id number]. All areas on his feet were painted with betadine and padded with gauze/conform. Air boots will be ordered to off load. BLE with multiple abrasion from newman to knees. Patient with compliants of pain to left knee which is red, swollen and painful with touch and movement. The abrasion on his knee is superficial and dry. All abraded areas to BLE dressed with medihoney gel and gauze. Area to both hands that patient reports are from toribio sustained when cooking. Patient has area to right 1st finger, right 2nd finger, left hand webspace between his thumb and 1st finger. The area on his left hand is dry/hyperkeratotic skin. Right first finger and second finger with eschar and drainage. Fingers with some erythema noted. Left hand area measures 3cmx1.1mzm2kl. Right 1st finger 1.6cmx1.4rxt0qh with central region open and draining. Right 2nd finger with eschar measuring 0.8cmx0.6ycr7bz. 100% dry. These areas dressed with medihoney gel and loosely wrapped adhesive bandage to allow patient to still use his hands. Patient denies any other skin ulcerations. Denies sacral/coccyx ulcer. Bedside RN also states when providing pericare, no ulcerations noted. Did not assess as patient was going to CT scan. Please reconsult if any additional ulcerations become evident. Anna Guerrero NP at bedside for assessment. Discussed treatment plan with her. Also updated Dr. Van and Dr. Souza regarding patient's worsening left plantar foot ulceration and possible need for debridement. Patient to CT scan now for assessment of bilateral feet and bilateral knees. Recommendations: Betadine to bilateral foot ulcers daily, pad with gauze/air boots until seen by podiatry. Medihoney gel to abrasions to BLE, bilateral knees, bilateral hands daily. Air boots at all times unless transferring from bed to chair Air seat cushion Podiatry already on consult Photos in chart. All orders placed in chart. Please call [phone] for any further questions or concerns. Salo Asencio, CELINEN, RN, CWON
--- NOTE | 2024-01-16 11:22 | SWNOTE1 ---
Pt's daughter is now in room. Pt was not in room, he was down gettting scan done. Pt's daughter expressed that her and her brother are not talking right now. She voiced frustrations in regards to her brother and they are at odds right now in regards to care for there father. ANDREW updated her on plan of care for pt. She is aware of rehab and voiced agreement with medicaid as well. 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 SW let her know [facility] and [facility] do take pending medicaid. SW advised to fill out medicaid rnealdo and then submit to jobs and family services or SW can fax. She voiced understanding. SW also spoke to her in regards to the POA. SW let her know that SW will complete POA and pt will choose who he wants. ANDREW advised to pt's daughter that the pt is alert and oriented and the POA does not come in to play until he is not of sound mind. 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
--- NOTE | 2024-01-16 11:26 | P.HP_ITS ---
<Statement entered by Vangie Mata, - 01/16/24 14:35> Patient also seen by me at the time of admission. I agree with the above findings, assessments and plan of care. H&P: HPI History of Present Illness Chief complaint: Left Foot Infection Hypokalemia Sepsis Dehydration Narrative: 01/16/2024 1000 This is a 68 yo male pt with a complicated PMH as outlined below including CHF (LVEF 15%), CKD4, DM2, CAD, HTN, A-fib, pacemaker, hyperlipidemia, and chronic non-healing DM2 wounds; who presented to the ED yesterday evening complaining of increasing lethargy and severe L knee pain. He follows with the wound clinic as an outpatient, but did not go to his appointment as scheduled earlier this week due to his fatigue, lethargy and because he was too weak to walk, as well as severe L knee pain. He presented to the ED for further evaluation. Workup in the ED revealed a fever (100.8), hypoxia (89% RA), leukocytosis (27.1 with left shift), hyponatremia (127), hypokalemia (2.5), and mildly elevated liver enzymes (bili 1.1, AST 49, alk phos 236). His INR was subtherapeutic (1.35). An NT proBNP was elevated at 14,502. Procalcitonin was also elevated within the septic range (0.53). His renal function is at, or improved from, his baseline CKD 3/4. X-rays of the bilateral knees and feet showed no acute bony disease and no evidence of osteomyelitis, MRI imaging was advised for further evaluation. Although no infectious source was confirmed, there is clinical suspicion of infected DM2 ulcers of the bilat feet with foul smelling, necrotic tissue covering the wounds. He was admitted yesterday evening to the hospitalist service for sepsis, infected DM2 wounds and possible osteomyelitis, hypokalemia, and hyponatremia. At the time of my exam the patient was resting in bed eating his breakfast. He complains of severe pain to the left knee and is requesting pain medications. The wound care nurses at the bedside evaluating the patient's multiple wounds of the bilateral lower extremities. The left foot has a lateral instep and heel wound that is foul-smelling with eschar tissue covering, but suspected underlying purulence. The right heel also has foul-smelling eschar covered wound. To the bilateral knees have ulcerations that have surrounding erythema and swelling to the prepatellar area. Podiatry has been consulted and the patient will be evaluated later today by Dr Van's office for possible surgical intervention of his foot wounds. We will order CTs of the feet and knees to further evaluate for possible osteomyelitis. We cannot obtain MRIs due to the presence of a pacemaker. Although the patient has an elevated proBNP in the ED, it has trended down despite IV fluid administration overnight. He does not appear to be in CHF exacerbation at this time. We will continue gentle IV fluids due to his infections and mild clinical dehydration, but also continue his home diuretics in hopes of maintaining euvolemia in setting of significant HFrEF. Review of Systems ROS Status of ROS 10 or more systems reviewed and unremark able except as noted in history and below [facility] Medical History (Updated 01/16/24 @ 12:44 by Anna Guerrero NP) Chronic wound of extremity Cellulitis and abscess of foot ?L03.119 - Cellulitis of unspecified part of limb (ICD-10) ?L02.619 - Cutaneous abscess of unspecified foot (ICD-10) Hypokalemia ?E87.6 - Hypokalemia (ICD-10) Hyponatremia ?E87.1 - Hypo-osmolality and hyponatremia (ICD-10) Generalized weakness ?R53.1 - Weakness (ICD-10) Chronic wound of extremity Dyspnea ?R06.00 - Dyspnea, unspecified (ICD-10) CKD (chronic kidney disease) stage 4, GFR 15-29 ml/min ?N18.4 - Chronic kidney disease, stage 4 (severe) (ICD-10) HLD (hyperlipidemia) ?E78.5 - Hyperlipidemia, unspecified (ICD-10) Cardiac defibrillator in place ?Z95.810 - Presence of automatic (implantable) cardiac defibrillator (ICD-10) Pacemaker ?Z95.0 - Presence of cardiac pacemaker (ICD-10) COPD (chronic obstructive pulmonary disease) ?J44.9 - Chronic obstructive pulmonary disease, unspecified (ICD-10) CAD (coronary artery disease) ?I25.10 - Atherosclerotic heart disease of [place] coronary artery without angina pectoris (ICD-10) Benign essential hypertension ?I10 - Essential (primary) hypertension (ICD-10) Anemia in chronic kidney disease ?N18.9 - Chronic kidney disease, unspecified (ICD-10) ?D63.1 - Anemia in chronic kidney disease (ICD-10) Paroxysmal atrial fibrillation ?I48.0 - Paroxysmal atrial fibrillation (ICD-10) Type 2 diabetes mellitus with hyperglycemia ?E11.65 - Type 2 diabetes mellitus with hyperglycemia (ICD-10) Hypothyroid ?E03.9 - Hypothyroidism, unspecified (ICD-10) Chronic kidney disease, stage 3a ?N18.31 - Chronic kidney disease, stage 3a (ICD-10) Chronic HFrEF (heart failure with reduced ejection fraction) ?I50.22 - Chronic systolic (congestive) heart failure (ICD-10) Surgical History History of appendectomy ?Z90.49 - Acquired absence of other specified parts of digestive tract (ICD- 10) Family History Mother Family history of CHF (congestive heart failure) Brother Family history of cancer Social History Within the past year, how often did you have a drink containing alcohol: never Within the past year, how often did you have six or more drinks on one occasion: never Score interpretation: A score less than 4 is consistent with normal alcohol consumption. 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 Known occupational exposures/hazards: No Highest level of school completed/degree received: high school graduate Do you want help with school or training: No Are you now , , , , never or living with a partner: living with partner In a typical week, how many times do you talk on the telephone with family, friends, or neighbors: 3 or more times per week How often do you get together with friends or relatives: 3 or more times per week How often do you attend hoahaoism or buddhism services: never Do you belong to any clubs or organizations such as hoahaoism groups unions, fraternal or athletic groups, or school groups: no Total score: 2 Score interpretation: A score of greater than or equal to 2 indicates the lowest level of social isolation. Little interest or pleasure in doing things: not at all Feeling down, depressed, or hopeless: not at all Feel stressed/tense/nervous/anxious/difficulty sleeping: not at all Due to disability, difficulty making decisions: No Do you think of yourself as: straight/heterosexual Gender Identity: male Meds Home Medications and Allergies Home Medications Medication Instructions Recorded Confirmed Type aspirin 81 mg tablet,delayed 81 mg PO DAILY 05/24/23 01/15/24 History release (Adult Low Dose Aspirin) atorvastatin 80 mg tablet 80 mg PO QPM 05/24/23 01/16/24 History carvedilol 25 mg tablet 25 mg PO Q12H 05/24/23 01/15/24 History dapagliflozin propanediol 10 mg 10 mg PO DAILY 05/24/23 01/16/24 History tablet (Farxiga) digoxin 125 mcg (0.125 mg) tablet 0.125 mg PO QDAY 05/24/23 01/15/24 History gabapentin 400 mg capsule 400 mg PO Q12H 05/24/23 01/15/24 History hydrocodone 5 mg-acetaminophen 325 1 tab PO Q8H PRN pain, moderate 05/24/23 01/15/24 History mg tablet isosorbide dinitrate 20 mg tablet 20 mg PO BIDWM 05/24/23 01/15/24 History levothyroxine 50 mcg tablet 50 mcg PO .ACB 05/24/23 01/15/24 History spironolactone 25 mg tablet 25 mg PO QAM 05/24/23 01/15/24 History amitriptyline 25 mg tablet 25 mg PO .QHS PRN sleep 06/02/23 01/16/24 History cyanocobalamin (vitamin B-12) 1,000 mcg PO DAILY 06/02/23 01/15/24 History 1,000 mcg tablet,extended release hydralazine 50 mg tablet 50 mg PO Q8H 06/02/23 01/16/24 History metolazone 2.5 mg tablet 2.5 mg PO DAILY 06/02/23 01/15/24 History nitroglycerin 0.4 mg sublingual 0.4 mg sublingual Q5M PRN chest 06/02/23 01/15/24 History tablet pain warfarin 2.5 mg tablet 2.5 mg PO .3 times a week 06/02/23 01/16/24 History potassium chloride 10 mEq 20 meq (2 x 10 mEq) PO TID #90 tabs 06/21/23 01/15/24 Rx tablet,extended release(part/cryst) (Kljose carlos-Con M) bumetanide 2 mg tablet 2 mg PO TID 01/16/24 01/16/24 History warfarin 5 mg tablet 5 mg PO .4 times a week 01/16/24 01/16/24 History Allergies Allergy/AdvReac Type Severity Reaction Status Date / Time GABRIELA Inhibitors AdvReac Mild COUGH Verified 01/15/24 16:55 Exam Constitutional Vital Signs, click to edit/add: Last Vital Signs Temp 98.0 F 01/16/24 08:00 Pulse 86 01/16/24 10:00 Resp 18 01/16/24 09:58 BP 124/77 01/16/24 09:36 Pulse Ox 96 01/16/24 09:58 O2 Del Method Nasal Cannula 01/16/24 09:58 O2 Flow Rate 2 01/16/24 09:58 Common normals: no apparent distress, oriented x3, alert and well nourished General appearance: cooperative Orientation/consciousness: Yes awake HENMT Common normals: normocephalic, head/scalp atraumatic, external nose normal and moist oral mucous membranes Eye Common normals: PERRL, EOMs intact bilaterally, conjunctivae normal and no scleral icterus Neck & C-Spine Common normals: full ROM, supple and no JVD Chest Common normals: inspection of chest normal Chest: symmetrical chest wall rise Respiratory Common normals: normal respiratory effort, no retractions and no use of accessory muscles Effort & inspection: able to speak in complete sentences Auscultation: rhonchi (Faint, LLL) Cardio Common normals: no JVD, regular rate, regular rhythm, S1 normal heart sound, S2 normal heart sound, no gallops, no clicks, no murmurs, no rub and peripheral pulses 2+ throughout Heart sounds: other (Diminished) GI Common normals: Normal to inspection, nondistended, normoactive bowel sounds present, soft to palpation, non-tender, no hepatosplenomegaly, no masses and no bruits Bladder/kidney exam: bladder normal to palpation Extremity Common normals: normal capillary refill General: normal exam except as noted and edema (Trace bilat insteps); no clubbing and no cyanosis Other: Multiple non-healing DM2 wounds of the BLE, mid-thigh to toes. Necrotic tissue to the lateral L foot/heel, R posterior heel, and multiple toe tips. Bilateral pre-patellar ulcerations w/ surrounding erythema, calor, tenderness, swelling. L knee exquisitely tender to touch. (See wound care nurse note for full documentation). Neuro Christina Coma Scale: GCS not evaluated Common normals: CN's II-XII intact bilaterally, moves all extremities and no focal motor deficits Speech: speech normal Psych Common normals: mental status grossly normal, thought process normal, affect normal and activity/motor behavior normal Results Labs Labs: Short CBC 01/15/24 01/16/24 Range/Units 17:15 04:22 WBC 27.1 H 22.8 H (4.0-11.0) 10^3/uL Hgb 13.8 L 12.4 L (14.0-18.0) g/dL Hct 41.4 L 38.1 L (42.0-54.0) % Plt Count 409 365 (150-450) 10^3/uL BMP 01/15/24 01/16/24 17:15 04:22 Sodium 127 L 133 L Potassium 2.5 L* 3.5 Chloride 85 L 95 L Carbon Dioxide 31.3 32.0 BUN 56.0 H 43.0 H Creatinine 1.81 H 1.51 H Glucose 189 H 187 H Calcium 9.0 8.2 L Liver Function 01/15/24 01/16/24 Range/Units 17:15 04:22 Total Bilirubin 1.1 H 0.9 (0.2-1.0) mg/dL AST 49 H 41 H (15-37) U/L ALT 33 26 (16-63) U/L Alkaline Phosphatase 236 H 200 H (46-116) U/L Albumin 2.2 L 1.8 L (3.4-5.0) g/dL ABG ABG results: 01/15/24 17:15 VBG pH 7.505 H VBG pCO2 43.9 Pulse Oximetry Attestation: I have reviewed the pertinent pulse oximetry results. Imaging Bilat foot XR: Radiologist's impression: IMPRESSION: No acute process. No evidence of acute osteomyelitis. Foot MRI is recommended if clinically warranted. Bilat Knee XR: Attestation: I have reviewed the pertinent imaging results. Radiologist's impression: IMPRESSION: No acute process. Assessment and Plan Assessment and Plan (1) Sepsis: Assessment and Plan: ACUTE * Adm inpatient * At least 2 midnight stay required for hospital necessary medical care * AEB on admission: * SEP1 Criteria: Temp 100.8., RR 22, WBC 27,000, Source - Bilat feet chronic wound infections * SEP3 Criteria: SOFA score of 3 (PF ratio of 280, Cr 1.81), Source - Bilat feet chronic wound infections * PCT 0.53 * IVPB Zosyn and Vanco (w/ pharm to dose) as initiated in the ED * BC x 2 pending * Obtain CXR to r/o infiltrate as additional source of infection * NS IVF at 100/hr for gentle hydration - monitor fluid balance closely in pt w/ HFrEF * IVFs given overnight at 250/hr - d/c today * CBC, CMP, PCT daily Qualifiers: Sepsis acute organ dysfunction status: with acute organ dysfunction Sepsis type: sepsis due to unspecified organism Severe sepsis acute organ dysfunction type: acute respiratory failure (2) Cellulitis and abscess of lower extremity: Assessment and Plan: ACUTE * Notable erythema, calor, tenderness, swelling surrounding bilat knee and feet ulcerations - especially to L knee * IVPB ABX as above - see sepsis * C/S Wound care nurse for wound management recommendations * C/S Podiatry for evaluation of foot wounds - possible I&D and intra op wound cultures * CT w/o contrast of bilat knees and feet to further assess for osteomyelitis * MRI contraindicated d/t indwelling pacemaker * CBC, CMP daily (3) Acute respiratory failure: Assessment and Plan: ACUTE * O2 sat 89% on RA in ED * O2 supplementation as needed to keep sats above 90% * wean off as able * No clinical concern for acute CHF despite elevated BNP (likely chronic) * CXR now to r/o pneumonia or interstitial edema (4) Hypokalemia: Assessment and Plan: ACUTE * K+ 2.5 in ED * PO and IV KCL administered in the ED * NS IVF w/ 40 meq KCL given overnight * Repeat K+ today is 3.5 - improving * DC KCL supplementation to IVF * Give additional 40 meq KCL PO now * repeat BMP at 1400 and replete further if indicated * Mag WNL in ED * daily CMP (5) Dehydration with hyponatremia: Assessment and Plan: ACUTE * Mild clinical dehydration noted w/ pre-renal azotemia, acute on chronic * Na 127 in ED, likely 2/2 dehydration in setting of acute illness * IVFs given at 250 ml/hr overnight * D/C d/t concern for fluid overload/CHF exacerbation * Continue gentle NS IVF at 100/hr for dehydration and sepsis. * Likely reduce rate further to 75/hr later this evening * Resume home diuretics today in hopes of maintaining euvolemia in pt with LVEF of 15% (6) Chronic kidney disease, stage 3a: Assessment and Plan: CHRONIC * Stable at or above baseline CKD 3/4 * CMP daily (7) Chronic HFrEF (heart failure with reduced ejection fraction): Assessment and Plan: CHRONIC * Continue home bumex, spironolactone, metolazone for now * Daily weight, strict I&O * Reduce IVF later today and consider discontinuing in AM pending clinical course (8) Paroxysmal atrial fibrillation: Assessment and Plan: CHRONIC * Continue home Digoxin and Coreg for rate control - HR currently well controlled * Continue home Warfarin for CVA prevention * INR subtherapeutic in ED * Increase warfarin to 5 mg daily for now * INR daily to monitor (9) Anemia in chronic kidney disease: Assessment and Plan: CHRONIC * Stable at baseline * CBC daily (10) Benign essential hypertension: Assessment and Plan: CHRONIC * Continue home Coreg and Imdur * Hold Hydralazine for now d/t borderline soft BPs and sepsis (11) COPD (chronic obstructive pulmonary disease): Assessment and Plan: CHRONIC * No current clinical concern for COPD exacerbation - no wheezing on exam * PRN albuterol nebs for SOB/wheezing if they occur Qualifiers: COPD type: chronic bronchitis Chronic bronchitis type: unspecified Qualified Code(s): J42 - Unspecified chronic bronchitis (12) Hypothyroid: Assessment and Plan: CHRONIC * Continue home levothyroxine (13) Type 2 diabetes mellitus with hyperglycemia: Assessment and Plan: CHRONIC * w/ hyperglycemia in ED * Hold home Farxiga during acute infection/hospitalization/dehydration * at risk for euglycemic DKA * ACHS glucometer checks * CC diet * med dose SSI for glucose correction * Consider adding basal coverage pending clinical course Qualifiers: Diabetes mellitus alf insulin use: without buttermaker use Qualified Code(s): E11.65 - Type 2 diabetes mellitus with hyperglycemia (14) HLD (hyperlipidemia): Assessment and Plan: CHRONIC * Continue home statin
[2024-01-16 11:41] LABS: Glucometer 251 mg/dL (74-106)
[2024-01-16 12:11] LABS: mecA/C and MREJ (MRSA) NOT DETECTED (NOT DETECTE)
[2024-01-16 12:30] LABS: Staphylococcus spp. DETECTED (NOT DETECTE)
[2024-01-16 12:31] LABS: Source BLOOD
--- NOTE | 2024-01-16 12:54 | CM.NOTE ---
Rounds made with Dr. Mata. No plan for discharge today.
[2024-01-16] MEDS: BUMETANIDE 1 MG TABLET 2 MG PO (13:30)
--- NOTE | 2024-01-16 14:30 | SWNOTE1 ---
[facility] is able to accept. With his insurance they get approval within 24 hours or same day. SW asked nurse practitioner if they are thinking dc tomorrow. It is likely another 2 days. SW to touch base with [facility] tomorrow and likely have them start precert tomorrow. Podiatry has to see pt still as well.
[2024-01-16 14:34] LABS: Anion Gap 7.5; BUN Creatinine Ratio 22.9; Calcium 8.1 mg/dL (8.5-10.1); Carbon Dioxide 32.7 mmol/L (21.0-32.0); Chloride 97 mmol/L (98-107); Estimated GFR (African America 55 (>=60); Estimated GFR (Non-African Ame 45 (>=60); Glucose 213 mg/dL (74-106); Potassium 4.2 mmol/L (3.5-5.1); Sodium 133 mmol/L (136-145)
--- NOTE | 2024-01-16 15:38 | SWNOTE1 ---
SW met with pt, pt's daughter, and pt's son in room. They all have spoke and are getting along at this time. SW did complete HCPOA with pt, he made his daughter POA and son as secondary option. SW made copy for family, chart, and [place]. SW and family spoke about the discharge plan, pt is on board. SW also recommended pt start thinking about assisted living in the future or penitentiary. At this time pt voices he does not want to. Pt is open to having his family assist with filling out medicaid renaldo. Pt's family is filling it out in the room with pt.
--- NOTE | 2024-01-16 15:52 | SWNOTE1 ---
SW did review IMM form with pt, he voiced understanding, no questions. Pt signed form, original given to pt and copy in chart.
--- NOTE | 2024-01-16 16:23 | SWNOTE1 ---
Medicaid form completed by family and left at front line leader. ANDREW faxed over to [facility] and made copy. ANDREW left original in room for family.
[2024-01-16 16:26] LABS: Glucometer 244 mg/dL (74-106)
[2024-01-16] MEDS: 0.9 % SODIUM CHLORIDE 1,000 ML 75 ML IV (16:48)
[2024-01-16] MEDS: WARFARIN SODIUM 5 MG TABLET PO (17:27)
--- NOTE | 2024-01-16 17:53 | P.PODCN_ITS ---
[facility] - Podiatry Data of Consult Patient: known to practice within the last 3 years Consult date: 01/16/24 Requesting physician: Anna Guerrero NP Primary care provider: VINNIE STEWART Consult Narrative Reason for consult: Full bilateral ulcerations, left foot infection and abscess Narrative: Mr Kauffman is a 68-year-old male known to our wound center with past medical history of severe decompensated systolic heart failure with an ejection fraction of approximately 10-20%. Also with a history of anasarca, chronic obstructive pulmonary disease, hyperlipidemia, type 2 diabetes with peripheral neuropathy, atrial fibrillation on chronic anticoagulation with Coumadin, and Chronic Diabetic wounds, frequent falls. He was scheduled to see us in the wound center yesterday, however his daughter called stating she was having trouble getting him out of bed and he was not feeling well, we recommended she think in the e mergency department and he presented there for further workup and discovered the left foot infection with sepsis protocol and placed on IV antibiotics and we were consulted for further management. He is unsure when the left foot began to start to swell, he did have a small blister in this area weeks ago which was stable and partial-thickness with no signs of infection. cc:: CC: Anna Guerrero NP [facility] Medical History (Updated 01/16/24 @ 12:44 by Anna Guerrero NP) Chronic wound of extremity Cellulitis and abscess of foot ?L03.119 - Cellulitis of unspecified part of limb (ICD-10) ?L02.619 - Cutaneous abscess of unspecified foot (ICD-10) Hypokalemia ?E87.6 - Hypokalemia (ICD-10) Hyponatremia ?E87.1 - Hypo-osmolality and hyponatremia (ICD-10) Generalized weakness ?R53.1 - Weakness (ICD-10) Chronic wound of extremity Dyspnea ?R06.00 - Dyspnea, unspecified (ICD-10) CKD (chronic kidney disease) stage 4, GFR 15-29 ml/min ?N18.4 - Chronic kidney disease, stage 4 (severe) (ICD-10) HLD (hyperlipidemia) ?E78.5 - Hyperlipidemia, unspecified (ICD-10) Cardiac defibrillator in place ?Z95.810 - Presence of automatic (implantable) cardiac defibrillator (ICD-10) Pacemaker ?Z95.0 - Presence of cardiac pacemaker (ICD-10) COPD (chronic obstructive pulmonary disease) ?J44.9 - Chronic obstructive pulmonary disease, unspecified (ICD-10) CAD (coronary artery disease) ?I25.10 - Atherosclerotic heart disease of [place] coronary artery without angina pectoris (ICD-10) Benign essential hypertension ?I10 - Essential (primary) hypertension (ICD-10) Anemia in chronic kidney disease ?N18.9 - Chronic kidney disease, unspecified (ICD-10) ?D63.1 - Anemia in chronic kidney disease (ICD-10) Paroxysmal atrial fibrillation ?I48.0 - Paroxysmal atrial fibrillation (ICD-10) Type 2 diabetes mellitus with hyperglycemia ?E11.65 - Type 2 diabetes mellitus with hyperglycemia (ICD-10) Hypothyroid ?E03.9 - Hypothyroidism, unspecified (ICD-10) Chronic kidney disease, stage 3a ?N18.31 - Chronic kidney disease, stage 3a (ICD-10) Chronic HFrEF (heart failure with reduced ejection fraction) ?I50.22 - Chronic systolic (congestive) heart failure (ICD-10) Surgical History History of appendectomy ?Z90.49 - Acquired absence of other specified parts of digestive tract (ICD- 10) Family History Mother Family history of CHF (congestive heart failure) Brother Family history of cancer Social History Within the past year, how often did you have a drink containing alcohol: never Within the past year, how often did you have six or more drinks on one occasion: never Score interpretation: A score less than 4 is consistent with normal alcohol consumption. 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 Known occupational exposures/hazards: No Highest level of school completed/degree received: high school graduate Do you want help with school or training: No Are you now , , , , never or living with a partner: living with partner In a typical week, how many times do you talk on the telephone with family, friends, or neighbors: 3 or more times per week How often do you get together with friends or relatives: 3 or more times per week How often do you attend synagogue or jehovah's witness services: never Do you belong to any clubs or organizations such as synagogue groups unions, fraternal or athletic groups, or school groups: no Total score: 2 Score interpretation: A score of greater than or equal to 2 indicates the lowest level of social isolation. Little interest or pleasure in doing things: not at all Feeling down, depressed, or hopeless: not at all Feel stressed/tense/nervous/anxious/difficulty sleeping: not at all Due to disability, difficulty making decisions: No Do you think of yourself as: straight/heterosexual Gender Identity: male Exam Narrative Exam Narrative: Vascular: DP and PT pulses faintly palpable. CFT intact to digits. Skin temperature warm to warm proximal distal increased warmth to the left lateral midfoot. Erythema to the left lower extremity from the dorsal midfoot to the left knee. Neuro: Light touch and gross sensation diminished. Protective sensation absent. Derm: Multiple full-thickness ulcerations bilateral lower extremity, bilateral heel ulcerations with mixed fibrogranular base with portions of overlying eschar. No fluctuance crepitus or bogginess and negative probe to bone. Right second digit with dry stable eschar dorsally, stable noninfected. Most concerning is the unstageable ulceration to the left lateral and plantar midfoot with overlying dry eschar, plantar superficial epidermolysis with underlying fluctuance and bogginess with purulent exudate and positive malodor. No crepitus. Multiple abrasions to the bilateral legs and knees. Please see wound note for measurements. MSK: Strength range of motion deferred. No palpatory tenderness elicited to the ankle or foot bilaterally. Compartment soft compressible no pain with calf or thigh compression. Constitutional Vital Signs, click to edit/add: Last Vital Signs Temp 98.0 F 01/16/24 16:00 Pulse 87 01/16/24 16:00 Resp 16 01/16/24 16:00 BP 129/74 01/16/24 16:00 Pulse Ox 91 L 01/16/24 16:00 O2 Del Method Nasal Cannula 01/16/24 16:00 O2 Flow Rate 2 01/16/24 16:00 Assessment and Plan Assessment and Plan (1) Sepsis: Qualifiers: Sepsis acute organ dysfunction status: with acute organ dysfunction Sepsis type: sepsis due to unspecified organism Severe sepsis acute organ dysfunction type: acute respiratory failure (2) Cellulitis and abscess of lower extremity: (3) Acute respiratory failure: (4) Hypokalemia: (5) Dehydration with hyponatremia: (6) Chronic kidney disease, stage 3a: (7) Chronic HFrEF (heart failure with reduced ejection fraction): (8) Paroxysmal atrial fibrillation: (9) Anemia in chronic kidney disease: (10) Benign essential hypertension: (11) COPD (chronic obstructive pulmonary disease): Qualifiers: COPD type: chronic bronchitis Chronic bronchitis type: unspecified Qualified Code(s): J42 - Unspecified chronic bronchitis (12) Hypothyroid: (13) Type 2 diabetes mellitus with hyperglycemia: Qualifiers: Diabetes mellitus [facility] insulin use: without [place] use Qualified Code(s): E11.65 - Type 2 diabetes mellitus with hyperglycemia (14) HLD (hyperlipidemia): Plan Patient examined and evaluated. All findings discussed with patient and all questions answered to patient satisfaction. Pertinent labs and imaging reviewed. Leukocytosis at 22 VSS at time of exam. X-rays No soft tissue emphysema. Her does not appear to be any cortical erosive changes compared to previous. CT of the bilateral feet and knees was obtained which again demonstrated soft tissue defect consistent with clinical wounds, however there do not appear to be any signs of focal osteomyelitis Multiple right lower extremity ulcerations appear stable compared to previous wound center examination. Left foot with new ulceration and underlying abscess to the lateral and plantar midfoot. There is fluctuance and purulent drainage from deep to the overlying thick eschar. Recommend for tomorrow for I&D of left foot, likely under local given significant CHF and multiple medical comorbidities. Will discuss with anesthesia N.p.o. after midnight tonight. ContinueOn IV Vanco and Zosyn. Betadine moistened gauze and dry sterile dressing applied to bilateral lower extremity. Avoid circumferential compression. Will update orders tomorrow following I&D. Rest per primary, please call with questions or concerns.
[2024-01-16 21:09] LABS: Glucometer 200 mg/dL (74-106)
[2024-01-16] MEDS: VANCOMYCIN HCL 1,250 MG in 0.9 % SODIUM CHLORIDE 250 ML 125 MG IV (21:24)
[2024-01-17] VITALS (19 sets, daily range): BP systolic 113–138; BP diastolic 68–78; PULSE 82–94; RESP 18–20; TEMP 36.6–37.4; O2SAT 91–98
[2024-01-17] MEDS: PIPERACILLIN SODIUM/TAZOBACTAM 3.375 GM in 0.9 % SODIUM CHLORIDE 50 ML IV ×2 (04:05→20:35)
[2024-01-17 05:20] LABS: Basophils Absolute Auto 0.1 10^3/uL (0.0-0.1); Basophils Percent Auto 0.4 % (0.2-2.0); Eosinophils Absolute Auto 0.4 10^3/uL (0.0-0.7); Immature Granulocytes Pct Auto 0.6 % (0.0-0.5); Lymphocytes Absolute Auto 1.7 10^3/uL (1.2-3.8); Lymphocytes Percent Auto 9.2 % (20.5-60.0); Mean Corpuscular HGB Conc 31.6 g/dL (29.9-35.2); Mean Corpuscular Hemoglobin 26.9 pg (25.9-34.0); Mean Corpuscular Volume 85.2 fL (80.0-94.0); Mean Platelet Volume 9.2 fL (9.5-13.5); Monocytes Absolute Auto 1.2 10^3/uL (0.3-0.8); Monocytes Percent Auto 6.6 % (1.7-12.0); Neutrophils Absolute Auto 14.7 10^3/uL (1.4-6.5); Neutrophils Percent Auto 81.2 % (43.0-75.0); Platelet Count 347 10^3/uL (150-450); Red Blood Count 4.46 10^6/uL (4.70-6.10); Red Cell Distribution Width 16.1 % (11.0-15.0); White Blood Count 18.1 10^3/uL (4.0-11.0)
[2024-01-17 05:42] LABS: INR 1.51; Prothrombin Time 15.6 sec (9.0-11.6)
[2024-01-17] MEDS: POTASSIUM CHLORIDE 10 MEQ ER TABLET 20 MEQ PO ×3 (06:03→21:48)
[2024-01-17] MEDS: 0.9 % SODIUM CHLORIDE 1,000 ML 75 ML IV (06:04)
[2024-01-17] MEDS: LEVOTHYROXINE SODIUM 25 MCG TABLET 50 MCG PO (06:04)
[2024-01-17] MEDS: BUMETANIDE 1 MG TABLET 2 MG PO ×2 (06:04→16:55)
[2024-01-17 06:07] LABS: PROCALCITONIN 0.25 ng/mL (0.00-0.50)
[2024-01-17 06:08] LABS: Alanine Aminotransferase 25 U/L (16-63); Albumin Globulin Ratio 0.3; Albumin Level 1.7 g/dL (3.4-5.0); Alkaline Phosphatase 198 U/L (46-116); Anion Gap 12.9; Aspartate Amino Transferase 35 U/L (15-37); BUN Creatinine Ratio 22.5; Bilirubin Total 0.6 mg/dL (0.2-1.0); Calcium 8.2 mg/dL (8.5-10.1); Carbon Dioxide 28.7 mmol/L (21.0-32.0); Chloride 102 mmol/L (98-107); Estimated GFR (African America >60 (>=60); Estimated GFR (Non-African Ame 51 (>=60); Globulin 5.9 g/dL; Glucose 138 mg/dL (74-106); Potassium 3.6 mmol/L (3.5-5.1); Sodium 140 mmol/L (136-145); Total Protein 7.6 g/dL (6.4-8.2)
[2024-01-17] MEDS: CARVEDILOL 25 MG TABLET PO ×2 (08:51→20:35)
--- NOTE | 2024-01-17 09:16 | P.PN_ITS ---
Progress Note: Subjective Subjective Interval history: Patient is a 68 y.o. but appears older than stated age. He is well known to me from multiple admissions over the last year. He appears to have lost significant weight since i last seen him about 3-4 months ago. Patient has Foul smell to him as I enter room. He does remember me and answers questions appropriately. He has many wounds fingers, hands, arms, both legs and his feet. Feet and legs are currently wrapped and c/d/i. He has no complaints as far as no shortness of breath, or chest pain. Just says he hands and feet hurt. He is currently NPO for I&D of the left heel. Exam Narrative Exam Narrative: General: Patient is alert, and oriented to person, place and time with cachexia noted Skin: Please see wound and podiatry note for details of each wound, but many wounds on hands/fingers/legs Head: atraumatic, acephalic Eyes: PERRLA, no nystagmus present, conjunctiva clear, no scleral icterus Neck: no masses palpated, normal thyroid, no JVD or audible carotid bruits Heart: Normal rate and rhythm, no murmurs/rubs/gallops Lungs: no audible wheezes, crackles and normal breath sounds all lung lyles Abdomen: Normal audible bowel sounds, no distension, No palpable masses, no organomegaly, no rebound/guarding/ or rigidity Neuro: CN II-X grossly intact Constitutional Vital Signs, click to edit/add: Last Vital Signs Temp 99.3 F 01/17/24 08:03 Pulse 85 01/17/24 08:03 Resp 18 01/17/24 08:03 BP 138/71 01/17/24 08:03 Pulse Ox 94 L 01/17/24 08:03 O2 Del Method Nasal Cannula 01/17/24 08:03 O2 Flow Rate 2 01/17/24 08:03 Progress Note: Objective Labs Labs: Short CBC 01/17/24 Range/Units 04:53 WBC 18.1 H (4.0-11.0) 10^3/uL Hgb 12.0 L (14.0-18.0) g/dL Hct 38.0 L (42.0-54.0) % Plt Count 347 (150-450) 10^3/uL BMP 01/16/24 01/17/24 14:16 04:53 Sodium 133 L 140 Potassium 4.2 3.6 Chloride 97 L 102 Carbon Dioxide 32.7 H 28.7 BUN 35.0 H 31.0 H Creatinine 1.53 H 1.38 H Glucose 213 H 138 H Calcium 8.1 L 8.2 L Liver Function 01/17/24 Range/Units 04:53 Total Bilirubin 0.6 (0.2-1.0) mg/dL AST 35 (15-37) U/L ALT 25 (16-63) U/L Alkaline Phosphatase 198 H (46-116) U/L Albumin 1.7 L (3.4-5.0) g/dL Progress Note: A&P Assessment and Plan (1) Sepsis: Assessment and Plan: continue IV vanc and zosyn. Most likely source is diabetic foot wounds bilaterally, worse on Left. sepsis labs improving, afebrile. Qualifiers: Sepsis acute organ dysfunction status: with acute organ dysfunction Sepsis type: sepsis due to unspecified organism Severe sepsis acute organ dysfunction type: acute respiratory failure (2) Cellulitis and abscess of lower extremity: Assessment and Plan: Cannot do MRI with pacemaker, CT performed that did not show any acute osteo but Podiatry planning for surgical intervention today for I&D, Uncontrolled diabetic contributing to this and feel it's also component of self neglect. appreciate wound care nurse and podiatry input. (3) Acute respiratory failure: Assessment and Plan: Acute on chronic. No clinical concern for Acute CHF, patient with significantly reduced EF 10-15%. so chronically elevated ProBNP. CXR does not show any pulmonary edema or pneumonia. History of COPD. Viral testing negative. Maintain sats >90% (4) Hypokalemia: Assessment and Plan: replaced yesterday 3.6 this morning. continue to monitor (5) Dehydration with hyponatremia: Assessment and Plan: Normal sodium and chloride today (6) Chronic kidney disease, stage 3a: Assessment and Plan: at baseline, cr 1.38. continue to monitor closely while on antibiotics (7) Chronic HFrEF (heart failure with reduced ejection fraction): Assessment and Plan: watch with any IVF addition, no apparent or clinical signs of overload (8) Paroxysmal atrial fibrillation: Assessment and Plan: daily INR, continue coumadin (9) Anemia in chronic kidney disease: Assessment and Plan: monitor CBC (10) Benign essential hypertension: Assessment and Plan: continue home medications of coreg, dig, Isosorbide, spironolactone (11) COPD (chronic obstructive pulmonary disease): Assessment and Plan: on oxygen at baseline i believe, will investigate further. no acute exacerbation Qualifiers: COPD type: chronic bronchitis Chronic bronchitis type: unspecified Qualified Code(s): J42 - Unspecified chronic bronchitis (12) Hypothyroid: Assessment and Plan: continue levothyroxine (13) Type 2 diabetes mellitus with hyperglycemia: Assessment and Plan: SSI as needed. ha1c was 10.6. This is directly causing his chronic/acute nonhealing wounds. May need long acting insulin at discharge. Qualifiers: Diabetes mellitus [facility] insulin use: without computer support specialist instructor use Qualified Code(s): E11.65 - Type 2 diabetes mellitus with hyperglycemia (14) HLD (hyperlipidemia): Assessment and Plan: continue statin Plan Patient is a DNRCCA to OR today for I&D, continue coumadin. Patient still to require 1-2 more days of medically needed care.
[2024-01-17] MEDS: HYDROCODONE/ACET 5-325 MG TABLET 1 TAB PO ×2 (09:31→16:55)
--- NOTE | 2024-01-17 09:36 | PT.DAILY ---
Physical Therapy Daily Note PT Daily Note/Assess Start: 01/17/24 09:31 Freq: Status: Active Protocol: Document 01/17/24 09:20 EUGENE (Rec: 01/17/24 09:36 EUGENE [id number]) Physical Therapy Daily Note/Assessment Time In/Time Out Time In 09:20 Time Out 09:30 Subjective Subjective Patient going into surgery for I&D later this morning. Patient is very nervous and anxious. Agrees to bed exercises. Therapeutic Exercise Time Therapeutic Exercise Minutes (minutes) 10 Therapeutic Exercise Units 1 Therapeutic Exercise Treatment Therapeutic Exercise Treatment Supine exercises with AROM of R LE and AAROM on L LE. Patient does not like or want to move L LE complaints of increased pain. Isometrics were also completed without issues. Total Physical Therapy Time Total Therapy Minutes 10 Total Physical Therapy Units 1 Summary Daily Note Summary Supine exercise program completed today, unable to complete AROM on L LE requiring AAROM, but was resistant to any type of movement of L LE. Patient did decline to sit EOB this AM but reports will try later, unsure of what time will be going to SX and just very anxious about procedure.
[2024-01-17 09:37] LABS: Estimated Average Glucose 258 mg/dL; Glycohemoglobin A1C 10.6 % (4.5-6.2)
[2024-01-17 11:28] LABS: Glucometer 194 mg/dL (74-106)
--- NOTE | 2024-01-17 11:49 | CM.NOTE ---
Rounds made with Dr. Mata, pt will go to OR today. Dr. Mata will follow for any further recommendations from Dr. Van.
--- NOTE | 2024-01-17 14:38 | PM.ORONB ---
Brief Operative Note Date of procedure: 01/17/24 Pre-op diagnosis: left foot abscess, acute osteomyelitis Post-op diagnosis: same as pre-op Procedure: PROCEDURES PERFORMED: incision and drainage of left foot abscess, incision of 5th metatarsal with partial resection INTRAOPERATIVE FINDINGS: Preoperative wound measurements 11x4x0.3 cm on lateral foot. severely malodorous and covered with dry eschar. Upon incising into the scar, significant amount of soft tissue necrosis extending into the deep fascia. PROCEDURE IN DETAIL: Patient was identified in pre op and consent was reviewed. Correct side and site were identified and marked. Pre-op antibiotics were started. Patient was brought to OR suite and place on table in a supine position. General anesthesia was administered. Operative extremity was prepped and draped in usual sterile fashion. Formal time-out was performed. Utilizing a scalpel, the wound on the LEFT lateral foot was excised. Blunt dissection with a hemostat was performed to ensure no additional purulence or necrotic tissue was present. swabs of the purulence were obtained. after extensive soft tissue debridement there is obvious exposure of the 5th metatarsal. A bone cutter was used to resect the exposed bone of the 5th metatarsal. Surgical site was irrigated with 3 L on pulse lavage and a hemostat was used to ensure no purulence was tracking proximally. Hemostasis was controlled with pressure Postoperative wound measurements: 14.5 x 6.1 x 2.3 cm. Adaptic was placed in the wound base followed by black foam. Seal was obtained with Tegaderm drape. A hole was cut in two the black foam and track pad was applied. Suction was obtained. all other wounds on the left leg and heel were dressed with Xeroform 4 x 4's and Kerlix POSTOPERATIVE PLAN: transfer to medical surgical unit Continue broad-spectrum antibiotics Continue heel offloading and local wound care to other wounds Reinforce dressing as needed due to medical status patient cannot be cleared for anesthesia so the wound will likely be treated local wound care and possible allogenic skin substitute once infection is cleared Will follow Anesthesia: local Surgeon: Philip Van Ui Lead Developer: Fred Souza Estimated blood loss (mL): 50 Pathology: other (5th metatarsal bone and soft tissue swabs) Condition: stable Disposition: PACU
[2024-01-17] MEDS: SODIUM HYPOCHLORITE HALF STRENGTH (0.25%) 473 ML BOTTLE 30 ML TOPICAL (15:43)
[2024-01-17 16:20] LABS: Glucometer 134 mg/dL (74-106)
--- NOTE | 2024-01-17 16:28 | SWNOTE1 ---
Pt will need wound vac at [facility]. ANDREW let [facility] know at [facility]. At this time [facility] is unsure they can accept, due to the cost being too high due to wound vac. [facility] will ask corporate and let ANDREW know.
[2024-01-17] MEDS: ASPIRIN 81 MG TABLET.DR PO (16:55)
[2024-01-17] MEDS: ISOSORBIDE DINITRATE 20 MG TABLET PO (16:55)
[2024-01-17] MEDS: ATORVASTATIN CALCIUM 40 MG TABLET 80 MG PO (16:55)
[2024-01-17] MEDS: SPIRONOLACTONE 25 MG TABLET PO (16:55)
[2024-01-17] MEDS: METOLAZONE 2.5 MG TABLET PO (16:56)
[2024-01-17] MEDS: DIGOXIN 125 MCG TABLET PO (16:56)
[2024-01-17] MEDS: WARFARIN SODIUM 5 MG TABLET PO (16:56)
[2024-01-17] MEDS: GABAPENTIN 400 MG CAPSULE PO (20:35)
[2024-01-17 20:46] LABS: Glucometer 337 mg/dL (74-106)
[2024-01-17] MEDS: INSULIN ASPART 300 UNIT/3 ML PEN SUBQ (21:47)
[2024-01-17] MEDS: VANCOMYCIN HCL 1,250 MG in 0.9 % SODIUM CHLORIDE 250 ML 125 MG IV (21:48)
[2024-01-18] VITALS (18 sets, daily range): BP systolic 115–147; BP diastolic 65–78; PULSE 83–90; RESP 18–20; TEMP 36.5–37.1; O2SAT 92–100; BMI 27.1
[2024-01-18] MEDS: 0.9 % SODIUM CHLORIDE 1,000 ML 75 ML IV ×2 (00:24→13:46)
[2024-01-18 05:00] LABS: Basophils Absolute Auto 0.1 10^3/uL (0.0-0.1); Basophils Percent Auto 0.4 % (0.2-2.0); Eosinophils Absolute Auto 0.3 10^3/uL (0.0-0.7); Eosinophils Percent Auto 1.6 % (0.9-7.0); Hemoglobin 12.2 g/dL (14.0-18.0); Immature Granulocytes Pct Auto 0.6 % (0.0-0.5); Lymphocytes Absolute Auto 1.6 10^3/uL (1.2-3.8); Lymphocytes Percent Auto 9.2 % (20.5-60.0); Mean Corpuscular HGB Conc 32.1 g/dL (29.9-35.2); Mean Corpuscular Hemoglobin 26.8 pg (25.9-34.0); Mean Corpuscular Volume 83.3 fL (80.0-94.0); Mean Platelet Volume 9.4 fL (9.5-13.5); Monocytes Absolute Auto 1.2 10^3/uL (0.3-0.8); Monocytes Percent Auto 6.8 % (1.7-12.0); Neutrophils Absolute Auto 13.9 10^3/uL (1.4-6.5); Neutrophils Percent Auto 81.4 % (43.0-75.0); Platelet Count 365 10^3/uL (150-450); Red Blood Count 4.56 10^6/uL (4.70-6.10); Red Cell Distribution Width 15.9 % (11.0-15.0); White Blood Count 17.1 10^3/uL (4.0-11.0)
[2024-01-18 05:20] LABS: INR 1.95; Prothrombin Time 19.9 sec (9.0-11.6)
[2024-01-18 05:29] LABS: Alanine Aminotransferase 27 U/L (16-63); Albumin Globulin Ratio 0.3; Albumin Level 1.7 g/dL (3.4-5.0); Alkaline Phosphatase 201 U/L (46-116); Anion Gap 8.1; Aspartate Amino Transferase 35 U/L (15-37); BUN Creatinine Ratio 19.3; Bilirubin Total 0.7 mg/dL (0.2-1.0); Calcium 8.2 mg/dL (8.5-10.1); Carbon Dioxide 31.2 mmol/L (21.0-32.0); Chloride 94 mmol/L (98-107); Estimated GFR (African America 52 (>=60); Estimated GFR (Non-African Ame 43 (>=60); Globulin 6.1 g/dL; Glucose 332 mg/dL (74-106); Potassium 3.3 mmol/L (3.5-5.1); Sodium 130 mmol/L (136-145); Total Protein 7.8 g/dL (6.4-8.2)
[2024-01-18 05:30] LABS: PROCALCITONIN 0.21 ng/mL (0.00-0.50)
[2024-01-18] MEDS: PIPERACILLIN SODIUM/TAZOBACTAM 3.375 GM in 0.9 % SODIUM CHLORIDE 50 ML IV ×3 (05:35→20:39)
[2024-01-18] MEDS: POTASSIUM CHLORIDE 10 MEQ ER TABLET 20 MEQ PO ×4 (05:36→21:55)
[2024-01-18] MEDS: BUMETANIDE 1 MG TABLET 2 MG PO ×4 (05:36→21:55)
[2024-01-18] MEDS: LEVOTHYROXINE SODIUM 25 MCG TABLET 50 MCG PO (05:36)
[2024-01-18] MEDS: HYDROCODONE/ACET 5-325 MG TABLET 1 TAB PO ×2 (05:36→13:24)
--- NOTE | 2024-01-18 06:32 | PC.NURSE ---
Patient has open 3 open areas to left leg. The open area to knee [id number] cm. The upper newman one measures 1x1cm, and the lower newman one measures 4x3 centimeters
[2024-01-18 08:03] LABS: Glucometer 259 mg/dL (74-106)
--- NOTE | 2024-01-18 08:03 | CM.NOTE ---
2nd Notice of Important Message From Medicare discussed with pt, pt denies questions or concerns.
--- NOTE | 2024-01-18 08:27 | SWNOTE1 ---
SW received messge from [facility] yesterday evening and they are NOT able to accept patient due to costing out and not making enough money. SW to speak with pt.
[2024-01-18] MEDS: INSULIN ASPART 300 UNIT/3 ML PEN SUBQ ×5 (08:34→21:55)
--- NOTE | 2024-01-18 08:38 | SWNOTE1 ---
SW spoke with pt to let him know [facility] is not able to accept him. Pt did voice frustrations to SW. SW did provide list from medicare.gov 5 star ratings. Pt is not sure, possible interest in [place]. He would like to wait for his daughter to get here. SW attempted to call Deanna, pt's daughter, but there was a bad connection, attempted several times. SW also let pt know that SW is going to check if [facility] takes [facility].
--- NOTE | 2024-01-18 08:46 | PM.PN ---
Progress Note: Subjective Subjective Interval history: Patient up to chair. No current complaints. His daughter is present today. Update on patient's condition given. No other questions or concerns. Patient was supposed to be on wound vac but was not taking so this was discharged shortly after application. He went to OR yesterday for local I&D of the left foot. Exam Narrative Exam Narrative: General: Patient is alert, and oriented to person, place and time with cachexia noted Skin: legs dressings on, c/d/i Head: atraumatic, acephalic Eyes: PERRLA, no nystagmus present, conjunctiva clear, no scleral icterus Neck: no masses palpated, normal thyroid, no JVD or audible carotid bruits Heart: Normal rate and rhythm, no murmurs/rubs/gallops Lungs: no audible wheezes, crackles and normal breath sounds all lung lyles Abdomen: Normal audible bowel sounds, no distension, No palpable masses, no organomegaly, no rebound/guarding/ or rigidity Neuro: CN II-X grossly intact Constitutional Vital Signs, click to edit/add: Last Vital Signs Temp 98.3 F 01/18/24 04:00 Pulse 86 01/18/24 07:55 Resp 20 01/18/24 04:00 BP 142/78 H 01/18/24 04:00 Pulse Ox 94 L 01/18/24 04:00 O2 Del Method Nasal Cannula 01/18/24 04:00 O2 Flow Rate 1 01/18/24 04:00 Progress Note: Objective Labs Labs: Short CBC 01/18/24 Range/Units 04:29 WBC 17.1 H (4.0-11.0) 10^3/uL Hgb 12.2 L (14.0-18.0) g/dL Hct 38.0 L (42.0-54.0) % Plt Count 365 (150-450) 10^3/uL BMP 01/18/24 04:29 Sodium 130 L Potassium 3.3 L Chloride 94 L Carbon Dioxide 31.2 BUN 31.0 H Creatinine 1.61 H Glucose 332 H Calcium 8.2 L Liver Function 01/18/24 Range/Units 04:29 Total Bilirubin 0.7 (0.2-1.0) mg/dL AST 35 (15-37) U/L ALT 27 (16-63) U/L Alkaline Phosphatase 201 H (46-116) U/L Albumin 1.7 L (3.4-5.0) g/dL Progress Note: A&P Assessment and Plan (1) Sepsis: Assessment and Plan: continue IV vanc and zosyn. Most likely source is diabetic foot wounds bilaterally, worse on Left requring I&D and the need for possible amputation in the future. sepsis labs improving, afebrile. Qualifiers: Sepsis acute organ dysfunction status: with acute organ dysfunction Sepsis type: sepsis due to unspecified organism Severe sepsis acute organ dysfunction type: acute respiratory failure Acute respiratory failure type: with hypoxia Severe sepsis shock status: without septic shock Qualified Code(s): A41.9 - Sepsis, unspecified organism; R65.20 - Severe sepsis without septic shock; J96.01 - Acute respiratory failure with hypoxia (2) Cellulitis and abscess of lower extremity: Assessment and Plan: Uncontrolled diabetic contributing to this and feel it's also component of self neglect. appreciate wound care nurse and podiatry input. Add Prostat for wound healing, continue podiatry recs, IV antibiotics Staph Aureus so far. (3) Acute respiratory failure: Assessment and Plan: Acute on chronic. No clinical concern for Acute CHF, patient with significantly reduced EF 10-15%. so chronically elevated ProBNP. CXR does not show any pulmonary edema or pneumonia. History of COPD. Viral testing negative. Maintain sats >90%, sepsis related, off oxygen now. (4) Hypokalemia: Assessment and Plan: replaced yesterday 3.3 this morning. continue to monitor (5) Dehydration with hyponatremia: Assessment and Plan: Normal sodium and chloride today (6) Chronic kidney disease, stage 3a: Assessment and Plan: at baseline, cr 1.61. continue to monitor closely while on antibiotics (7) Chronic HFrEF (heart failure with reduced ejection fraction): Assessment and Plan: watch with any IVF addition, no apparent or clinical signs of overload, continue home medications (8) Paroxysmal atrial fibrillation: Assessment and Plan: daily INR, continue coumadin (9) Anemia in chronic kidney disease: Assessment and Plan: monitor CBC (10) Benign essential hypertension: Assessment and Plan: continue home medications of coreg, dig, Isosorbide, spironolactone (11) COPD (chronic obstructive pulmonary disease): Assessment and Plan: no acute exacerbation Qualifiers: COPD type: chronic bronchitis Chronic bronchitis type: unspecified Qualified Code(s): J42 - Unspecified chronic bronchitis (12) Hypothyroid: Assessment and Plan: continue levothyroxine (13) Type 2 diabetes mellitus with hyperglycemia: Assessment and Plan: SSI as needed. ha1c was 10.6. This is directly causing his chronic/acute nonhealing wounds. May need long acting insulin at discharge. Qualifiers: Diabetes mellitus group home insulin use: without termite control representative use Qualified Code(s): E11.65 - Type 2 diabetes mellitus with hyperglycemia (14) HLD (hyperlipidemia): Assessment and Plan: continue statin Plan Patient is a DNRCCA Due to patient's NWB status and necessary medical care, IV antibiotics, most likely need 1-2 more days before [facility] to [facility])
[2024-01-18] MEDS: CARVEDILOL 25 MG TABLET PO ×2 (08:59→20:38)
[2024-01-18] MEDS: ATORVASTATIN CALCIUM 40 MG TABLET 80 MG PO (08:59)
[2024-01-18] MEDS: DIGOXIN 125 MCG TABLET PO (09:00)
[2024-01-18] MEDS: ISOSORBIDE DINITRATE 20 MG TABLET PO ×2 (09:00→17:21)
[2024-01-18] MEDS: METOLAZONE 2.5 MG TABLET PO (09:00)
[2024-01-18] MEDS: SPIRONOLACTONE 25 MG TABLET PO (09:00)
[2024-01-18] MEDS: GABAPENTIN 400 MG CAPSULE PO ×2 (09:00→20:38)
[2024-01-18] MEDS: ASPIRIN 81 MG TABLET.DR PO (09:00)
[2024-01-18] MEDS: JUVEN PACKET 1 PACKET PO ×2 (09:03→20:38)
--- NOTE | 2024-01-18 09:15 | SWNOTE1 ---
SW spoke to daughter and updated her, she is on her way. ANDREW heard back from [facility] and they do not take [facility] medicare, pt's insurance.
--- NOTE | 2024-01-18 09:53 | SWNOTE1 ---
ANDREW went in and spoke with daughter and pt. SW let pt know [facility] is not in network. They have decided on [facility] as next option. SW attempted to call son in room, no answer. Pt would like to move forward with [facility]. ANDREW sent referral to [facility]. Referral included face sheet, ED note, all surgery and physician notes, wound care, labs, vitals, nursing notes, PT/OT, med list.
--- NOTE | 2024-01-18 10:11 | PM.PN ---
Progress Note: Subjective Subjective Interval history: Patient seen resting comfortably at bedside this a.m, Appears to be in good spirits. POD #1 s/p left foot incision and drainage with extensive soft tissue debridement and partial excision of fifth metatarsal DOS 01/17/2024. He denies any acute events overnight. Denies any pain to the bilateral feet, however still complaining of tenderness within the left knee which she states has not improved since his admission. He denied any constitutional symptoms at time of visit. Exam Narrative Exam Narrative: BLE dressings left CDI this a.m. Vascular: CFT intact to digits. Skin temperature warm to cool proximal distal without focal increase. No erythema proximal to dressings. Neuro: Light touch and gross sensation absent to digits consistent with baseline. Derm: Dressings CDI without strikethrough. No open lesions proximal or distal to dressings. MSK: Palpatory tenderness to left knee, prepatellar region. No palpatory tenderness elicited to the bilateral ankles or feet. No pain with calf or thigh compression. Constitutional Vital Signs, click to edit/add: Last Vital Signs Temp 98.6 F 01/18/24 09:05 Pulse 86 01/18/24 09:57 Resp 18 01/18/24 09:05 BP 134/66 01/18/24 09:05 Pulse Ox 94 L 01/18/24 09:05 O2 Del Method Room Air 01/18/24 09:05 O2 Flow Rate 1 01/18/24 04:00 Progress Note: Objective Labs Labs: Short CBC 01/18/24 Range/Units 04:29 WBC 17.1 H (4.0-11.0) 10^3/uL Hgb 12.2 L (14.0-18.0) g/dL Hct 38.0 L (42.0-54.0) % Plt Count 365 (150-450) 10^3/uL BMP 01/18/24 04:29 Sodium 130 L Potassium 3.3 L Chloride 94 L Carbon Dioxide 31.2 BUN 31.0 H Creatinine 1.61 H Glucose 332 H Calcium 8.2 L Liver Function 01/18/24 Range/Units 04:29 Total Bilirubin 0.7 (0.2-1.0) mg/dL AST 35 (15-37) U/L ALT 27 (16-63) U/L Alkaline Phosphatase 201 H (46-116) U/L Albumin 1.7 L (3.4-5.0) g/dL Progress Note: A&P Assessment and Plan (1) Sepsis: Qualifiers: Sepsis acute organ dysfunction status: with acute organ dysfunction Sepsis type: sepsis due to unspecified organism Severe sepsis acute organ dysfunction type: acute respiratory failure (2) Cellulitis and abscess of lower extremity: (3) Acute respiratory failure: (4) Hypokalemia: (5) Dehydration with hyponatremia: (6) Chronic kidney disease, stage 3a: (7) Chronic HFrEF (heart failure with reduced ejection fraction): (8) Paroxysmal atrial fibrillation: (9) Anemia in chronic kidney disease: (10) Benign essential hypertension: (11) COPD (chronic obstructive pulmonary disease): Qualifiers: COPD type: chronic bronchitis Chronic bronchitis type: unspecified Qualified Code(s): J42 - Unspecified chronic bronchitis (12) Hypothyroid: (13) Type 2 diabetes mellitus with hyperglycemia: Qualifiers: Diabetes mellitus non categorical preschool teacher insulin use: without chcf use Qualified Code(s): E11.65 - Type 2 diabetes mellitus with hyperglycemia (14) HLD (hyperlipidemia): Plan Patient examined evaluated. All findings discussed with patient all questions answered by satisfaction. Pertinent labs and imaging reviewed. Leukocytosis at 17 today, downtrending. BLE dressings left CDI this a.m. Plan for wound VAC as outpatient upon DC to SNF. Left lateral foot ulcer dressed with Dakin's packing, dry sterile dressing with Xeroform to remaining ulcerations and loose Kerlix. Avoid circumferential compression. Wound VAC machine expected to be delivered at 11 AM. If anticipated to stay over the weekend we will convert to VAC while in house. Continue broad-spectrum antibiotics, IntraOp cultures and path pending. Continue heel offloading and local wound care to other wounds Reinforce dressing as needed Due to poor surgical candidate and medical status recommend continued local wound care and possible allogenic skin graft substitute pending clearance of infection. Rest per primary, please call questions or concerns.
--- NOTE | 2024-01-18 10:45 | CM.NOTE ---
Rounds made with Dr. Mata, discussed with pt and daughter plan of care and discharge needs. Pt in agreement to skilled facility at discharge. Pt's referral has been sent to [facility].
--- NOTE | 2024-01-18 11:00 | PT.DAILY ---
Physical Therapy Daily Note PT Daily Note/Assess Start: 01/17/24 09:31 Freq: Status: Active Protocol: Document 01/18/24 10:57 AGATA (Rec: 01/18/24 11:00 AGATA [id number]) Physical Therapy Daily Note/Assessment Time In/Time Out Time In 10:00 Time Out 10:15 Pain In Pain N/A Pain Out Pain N/A Subjective Subjective Supine upon arrival. Daughter present. Agreeable to get into bed side chair. Therapeutic Activity Time Therapeutic Activity Minutes (minutes) 10 Therapeutic Activity Units 1 Therapeutic Activity Treatment Bed Mobility Ability Moderate Assist,2 Person Assist Chair Transfer Ability Moderate Assist,Maximum Assist ,2 Person Assist Therapeutic Activity Comments Supine>sit ModA to advance LEs and upper body to sit EOB. Sits EOB unsupported without LOB. Sit>stand ModA with attempting to maintain NWB L LE. Pt has urinated and needs brief changed. Pt sits back on EOB and a new brief donned on LEs. Sit>stand again ModA+2 and old brief is removed and new one is pulled up. pt takes another seated rest break at EOB. Third standing attempt is again ModA+2 this time with a pivot to BS chair with MaxA+2 . Needs MaxA+2 to scoot hips back into chair. Feet are elevated, call light is in reach and daughter is still present. Total Physical Therapy Time Total Therapy Minutes 10 Total Physical Therapy Units 1 Summary Daily Note Summary Unable to fully maintain NWB L LE with entire pivot transfer . Requires Mod-Max+2 for transfers. fatigued upon completion.
--- NOTE | 2024-01-18 11:33 | SWNOTE1 ---
[facility] is able to accept and will start precert.
[2024-01-18 11:37] LABS: Glucometer 303 mg/dL (74-106)
--- NOTE | 2024-01-18 11:39 | SWNOTE1 ---
[facility] is ordering wound vac. SW informed pt and family that [facility] started precert. ANDREW let nursing know as well.
--- NOTE | 2024-01-18 12:26 | SWNOTE1 ---
ANDREW updated pts son as well and let him know it is possible he could get dc over weekend if his insurance approves.
--- NOTE | 2024-01-18 12:33 | SWNOTE1 ---
ANDREW received call from [facility], they informed SW that there is an open APS case. Home health and APS recommending pt go to a facility. ANDREW advised pt is going skilled at this time. [facility] is going to notify APS.
[2024-01-18] MEDS: SODIUM CHLORIDE 0.9% IRR (15:26)
--- NOTE | 2024-01-18 15:55 | SWNOTE1 ---
therapy notes, progress note, lab, vitals, med list, and nursing notes sent to [facility]. Packet placed on [facility] floor for nursing. Pt is a precert, [facility] will call if approved.
--- NOTE | 2024-01-18 16:09 | DIETREC ---
Recommendations to physician: Increase diet to 2500 kcal CCD; provide 30 mL PRO-stat BID; continue 1 packet Deejay BID.
[2024-01-18 17:19] LABS: Glucometer 188 mg/dL (74-106)
[2024-01-18] MEDS: WARFARIN SODIUM 5 MG TABLET PO (17:21)
[2024-01-18] MEDS: PROSTAT 15 GM PROTEIN/100 CAL 30 ML LIQUID PACKET PO (20:38)
[2024-01-18 20:39] LABS: Glucometer 289 mg/dL (74-106)
[2024-01-18 20:46] LABS: Vancomycin Trough 14.9 ug/mL (5.0-20.0)
[2024-01-18] MEDS: VANCOMYCIN HCL 1,250 MG in 0.9 % SODIUM CHLORIDE 250 ML 50 MG IV (21:54)
[2024-01-19] VITALS (22 sets, daily range): BP systolic 97–146; BP diastolic 60–83; PULSE 80–89; RESP 18; TEMP 36.6–37.2; O2SAT 84–100
[2024-01-19 05:07] LABS: Basophils Absolute Auto 0.1 10^3/uL (0.0-0.1); Basophils Percent Auto 0.4 % (0.2-2.0); Eosinophils Absolute Auto 0.4 10^3/uL (0.0-0.7); Eosinophils Percent Auto 2.4 % (0.9-7.0); Hematocrit 36.8 % (42.0-54.0); Hemoglobin 11.7 g/dL (14.0-18.0); Immature Granulocytes Abs Auto 0.11 10^3/uL (0.00-0.03); Immature Granulocytes Pct Auto 0.6 % (0.0-0.5); Lymphocytes Absolute Auto 2.2 10^3/uL (1.2-3.8); Lymphocytes Percent Auto 12.6 % (20.5-60.0); Mean Corpuscular HGB Conc 31.8 g/dL (29.9-35.2); Mean Corpuscular Hemoglobin 26.4 pg (25.9-34.0); Mean Corpuscular Volume 82.9 fL (80.0-94.0); Mean Platelet Volume 9.3 fL (9.5-13.5); Monocytes Absolute Auto 1.2 10^3/uL (0.3-0.8); Neutrophils Absolute Auto 13.1 10^3/uL (1.4-6.5); Platelet Count 354 10^3/uL (150-450); Red Blood Count 4.44 10^6/uL (4.70-6.10); Red Cell Distribution Width 15.9 % (11.0-15.0)
[2024-01-19 05:10] LABS: INR 2.35; Prothrombin Time 23.7 sec (9.0-11.6)
[2024-01-19 05:54] LABS: Alanine Aminotransferase 25 U/L (16-63); Albumin Globulin Ratio 0.3; Albumin Level 1.6 g/dL (3.4-5.0); Alkaline Phosphatase 182 U/L (46-116); Anion Gap 10.7; Aspartate Amino Transferase 31 U/L (15-37); BUN Creatinine Ratio 29.9; Bilirubin Total 0.7 mg/dL (0.2-1.0); Calcium 7.9 mg/dL (8.5-10.1); Carbon Dioxide 31.4 mmol/L (21.0-32.0); Chloride 91 mmol/L (98-107); Estimated GFR (African America 59 (>=60); Estimated GFR (Non-African Ame 49 (>=60); Globulin 5.9 g/dL; Glucose 219 mg/dL (74-106); Potassium 3.1 mmol/L (3.5-5.1); Sodium 130 mmol/L (136-145); Total Protein 7.5 g/dL (6.4-8.2)
[2024-01-19] MEDS: LEVOTHYROXINE SODIUM 25 MCG TABLET 50 MCG PO (05:59)
[2024-01-19] MEDS: BUMETANIDE 1 MG TABLET 2 MG PO ×2 (05:59→14:26)
[2024-01-19] MEDS: POTASSIUM CHLORIDE 10 MEQ ER TABLET 20 MEQ PO (05:59)
[2024-01-19 06:54] LABS: PROCALCITONIN 0.19 ng/mL (0.00-0.50)
--- NOTE | 2024-01-19 09:58 | P.PN_ITS ---
Progress Note: Subjective Subjective Interval history: No complaints this morning Exam Constitutional Vital Signs, click to edit/add: Last Vital Signs Temp 97.9 F 01/19/24 08:00 Pulse 80 01/19/24 08:00 Resp 18 01/19/24 08:00 BP 128/76 01/19/24 08:56 Pulse Ox 95 01/19/24 08:56 O2 Del Method Room Air 01/19/24 08:56 O2 Flow Rate 1 01/19/24 08:00 Documenting provider has reviewed patient's vital signs: yes Common normals: no apparent distress Chest Common normals: inspection of chest normal Respiratory Common normals: normal respiratory effort Cardio Common normals: regular rate and regular rhythm GI Common normals: Normal to inspection, nondistended, normoactive bowel sounds present Extremity Common normals: abnormal to inspection (Dressings in place) Progress Note: Objective Labs Labs: Short CBC 01/19/24 Range/Units 04:17 WBC 17.0 H (4.0-11.0) 10^3/uL Hgb 11.7 L (14.0-18.0) g/dL Hct 36.8 L (42.0-54.0) % Plt Count 354 (150-450) 10^3/uL BMP 01/19/24 04:17 Sodium 130 L Potassium 3.1 L Chloride 91 L Carbon Dioxide 31.4 BUN 43.0 H Creatinine 1.44 H Glucose 219 H Calcium 7.9 L Liver Function 01/19/24 Range/Units 04:17 Total Bilirubin 0.7 (0.2-1.0) mg/dL AST 31 (15-37) U/L ALT 25 (16-63) U/L Alkaline Phosphatase 182 H (46-116) U/L Albumin 1.6 L (3.4-5.0) g/dL Progress Note: A&P Assessment and Plan (1) Sepsis: Assessment and Plan: continue IV vanc and zosyn. Most likely source is diabetic foot wounds bilaterally, plan per podiatry Qualifiers: Acute respiratory failure type: with hypoxia Sepsis acute organ dysfunction status: with acute organ dysfunction Sepsis type: sepsis due to unspecified organism Severe sepsis acute organ dysfunction type: acute respiratory failure Severe sepsis shock status: without septic shock Qualified Code(s): A41.9 - Sepsis, unspecified organism; R65.20 - Severe sepsis without septic shock; J96.01 - Acute respiratory failure with hypoxia (2) Cellulitis and abscess of lower extremity: Assessment and Plan: Uncontrolled diabetic contributing to this and feel it's also component of self neglect. appreciate wound care nurse and podiatry input. Add Prostat for wound healing, continue podiatry recs, IV antibiotics Staph Aureus so far. (3) Acute respiratory failure: Assessment and Plan: Acute on chronic. No clinical concern for Acute CHF, patient with significantly reduced EF 10-15%. so chronically elevated ProBNP. CXR does not show any pulmonary edema or pneumonia. Stable overnight (4) Hypokalemia: Assessment and Plan: Increase replacement (5) Dehydration with hyponatremia: Assessment and Plan: Continue to monitor (6) Chronic kidney disease, stage 3a: Assessment and Plan: at baseline, cr 1.61. continue to monitor closely while on antibiotics (7) Chronic HFrEF (heart failure with reduced ejection fraction): Assessment and Plan: watch with any IVF addition, no apparent or clinical signs of overload, continue home medications (8) Paroxysmal atrial fibrillation: Assessment and Plan: daily INR, continue coumadin (9) Anemia in chronic kidney disease: Assessment and Plan: monitor CBC (10) Benign essential hypertension: Assessment and Plan: continue home medications of coreg, dig, Isosorbide, spironolactone-check Lanoxin level (11) COPD (chronic obstructive pulmonary disease): Assessment and Plan: no acute exacerbation Qualifiers: COPD type: chronic bronchitis Chronic bronchitis type: unspecified Qualified Code(s): J42 - Unspecified chronic bronchitis (12) Hypothyroid: Assessment and Plan: continue levothyroxine (13) Type 2 diabetes mellitus with hyperglycemia: Assessment and Plan: Increase insulin sliding scale Qualifiers: Diabetes mellitus long term care administrator insulin use: without long term care administrator use Qualified Code(s): E11.65 - Type 2 diabetes mellitus with hyperglycemia (14) HLD (hyperlipidemia): Assessment and Plan: continue statin Plan Patient is a DNRCCA Due to patient's NWB status and necessary medical care, IV antibiotics, most likely need 1-2 more days before discharge to [facility] facility ([facility]) Added diagnosis-leukocytosis, stable Iron deficiency anemia but also possible acute blood loss-Down 4 g, check occult blood Severe protein calorie malnutrition-add Ensure
[2024-01-19] MEDS: ASPIRIN 81 MG TABLET.DR PO (10:00)
[2024-01-19] MEDS: JUVEN PACKET 1 PACKET PO ×2 (10:00→21:57)
[2024-01-19] MEDS: ISOSORBIDE DINITRATE 20 MG TABLET PO ×2 (10:00→16:28)
[2024-01-19] MEDS: PROSTAT 15 GM PROTEIN/100 CAL 30 ML LIQUID PACKET PO ×2 (10:00→21:57)
[2024-01-19] MEDS: POTASSIUM CHLORIDE 40 MEQ in 0.9 % SODIUM CHLORIDE 250 ML 67.5 MEQ IV (10:00)
[2024-01-19] MEDS: SPIRONOLACTONE 25 MG TABLET PO (10:01)
[2024-01-19] MEDS: DIGOXIN 125 MCG TABLET PO (10:01)
[2024-01-19] MEDS: GABAPENTIN 400 MG CAPSULE PO ×2 (10:01→21:58)
[2024-01-19] MEDS: ATORVASTATIN CALCIUM 40 MG TABLET 80 MG PO (10:01)
[2024-01-19] MEDS: METOLAZONE 2.5 MG TABLET PO (10:01)
[2024-01-19] MEDS: POTASSIUM CHLORIDE 10 MEQ ER TABLET 30 MEQ PO ×3 (10:01→21:57)
[2024-01-19] MEDS: CARVEDILOL 25 MG TABLET PO (10:02)
[2024-01-19] MEDS: INSULIN ASPART 300 UNIT/3 ML PEN SUBQ ×4 (10:02→21:59)
[2024-01-19] MEDS: PIPERACILLIN SODIUM/TAZOBACTAM 3.375 GM in 0.9 % SODIUM CHLORIDE 50 ML IV ×3 (10:02→23:14)
--- NOTE | 2024-01-19 10:26 | P.PN_ITS ---
Progress Note: Subjective Subjective Interval history: Patient up to chair. No current complaints. Denies foot pain. 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 sluggish to toes No pain out of proportion Constitutional Vital Signs, click to edit/add: Last Vital Signs Temp 97.9 F 01/19/24 08:00 Pulse 80 01/19/24 08:00 Resp 18 01/19/24 08:00 BP 128/76 01/19/24 08:56 Pulse Ox 95 01/19/24 08:56 O2 Del Method Room Air 01/19/24 08:56 O2 Flow Rate 1 01/19/24 08:00 Progress Note: Objective Labs Labs: Short CBC 01/19/24 Range/Units 04:17 WBC 17.0 H (4.0-11.0) 10^3/uL Hgb 11.7 L (14.0-18.0) g/dL Hct 36.8 L (42.0-54.0) % Plt Count 354 (150-450) 10^3/uL BMP 01/19/24 04:17 Sodium 130 L Potassium 3.1 L Chloride 91 L Carbon Dioxide 31.4 BUN 43.0 H Creatinine 1.44 H Glucose 219 H Calcium 7.9 L Liver Function 01/19/24 Range/Units 04:17 Total Bilirubin 0.7 (0.2-1.0) mg/dL AST 31 (15-37) U/L ALT 25 (16-63) U/L Alkaline Phosphatase 182 H (46-116) U/L Albumin 1.6 L (3.4-5.0) g/dL Progress Note: A&P Assessment and Plan (1) Sepsis: Qualifiers: Acute respiratory failure type: with hypoxia Sepsis acute organ dysfunction status: with acute organ dysfunction Sepsis type: sepsis due to unspecified organism Severe sepsis acute organ dysfunction type: acute respiratory failure Severe sepsis shock status: without septic shock Qualified Code(s): A41.9 - Sepsis, unspecified organism; R65.20 - Severe sepsis without septic shock; J96.01 - Acute respiratory failure with hypoxia (2) Cellulitis and abscess of lower extremity: (3) Acute respiratory failure: (4) Hypokalemia: (5) Dehydration with hyponatremia: (6) Chronic kidney disease, stage 3a: (7) Chronic HFrEF (heart failure with reduced ejection fraction): (8) Paroxysmal atrial fibrillation: (9) Anemia in chronic kidney disease: (10) Benign essential hypertension: (11) COPD (chronic obstructive pulmonary disease): Qualifiers: COPD type: chronic bronchitis Chronic bronchitis type: unspecified Qualified Code(s): J42 - Unspecified chronic bronchitis (12) Hypothyroid: (13) Type 2 diabetes mellitus with hyperglycemia: Qualifiers: Diabetes mellitus fdc insulin use: without watermelon harvesting supervisor use Qualified Code(s): E11.65 - Type 2 diabetes mellitus with hyperglycemia (14) HLD (hyperlipidemia): Plan Continue local wound care with dressing changes every 1-2 days VAC to be applied once transferred to SNF - arrangements made with social work; VAC settings are to be at 125mmHg continuous Santyl to be applied to all other wounds Continue off loading to heels f/u in wound center in 1-2 weeks from d/c date
--- NOTE | 2024-01-19 10:54 | PT.DAILY ---
Physical Therapy Daily Note PT Daily Note/Assess Start: 01/17/24 09:31 Freq: Status: Active Protocol: Document 01/19/24 10:42 [id number] (Rec: 01/19/24 10:54 [id number]) Physical Therapy Daily Note/Assessment Time In/Time Out Time In 08:24 Time Out 08:47 Pain In Pain Level 4 Pain Out Pain Level 5 Subjective Subjective Patient received in bed and agreeable to participate with PT. States his L leg is painful. Patient requests to be cleaned secondary to soiling himself. Therapeutic Activity Time Therapeutic Activity Minutes (minutes) 23 Therapeutic Activity Units 2 Therapeutic Activity Treatment Bed Mobility Ability Moderate Assist,2 Person Assist Chair Transfer Ability Moderate Assist,2 Person Assist Therapeutic Activity Comments Patient required MOD A+2 for bed mobility and to use FRANKLYN UE to A for pericleaning. Bed mobility for L side rolling into sitting with use of hand rail is MOD A+2. Able to sit EOB without assist. Transfer sit to stand to RW is MOD A+1, VC's for L NWB status. L Pivot transfer to chair with RW is MOD A +2, unable to maintain L NWB. Poor descent to chair requires MAX +2 for stand to sit transfer. FRANKLYN LE elevated and call ribeiro within reach. Shazia, nurse assisted. Total Physical Therapy Time Total Therapy Minutes 23 Total Physical Therapy Units 2 Summary Daily Note Summary Patient with low functional ability and unable to maintain L NWB status. Would benefit from skilled care upon DC.
[2024-01-19 11:55] LABS: Glucometer 455 mg/dL (74-106)
[2024-01-19 11:55] LABS: Glucometer 530 mg/dL (74-106)
[2024-01-19 16:28] LABS: Glucometer 285 mg/dL (74-106)
[2024-01-19] MEDS: WARFARIN SODIUM 5 MG TABLET PO (16:28)
[2024-01-19] MEDS: HYDROCODONE/ACET 5-325 MG TABLET 1 TAB PO (18:09)
[2024-01-19 20:22] LABS: Glucometer 301 mg/dL (74-106)
[2024-01-19] MEDS: VANCOMYCIN HCL 1,250 MG in 0.9 % SODIUM CHLORIDE 250 ML 250 MG IV (21:58)
[2024-01-20] VITALS (21 sets, daily range): BP systolic 114–150; BP diastolic 72–82; PULSE 75–89; RESP 16–20; TEMP 36.4–37.8; O2SAT 20–97
[2024-01-20] MEDS: LEVOTHYROXINE SODIUM 25 MCG TABLET 50 MCG PO (05:06)
[2024-01-20] MEDS: BUMETANIDE 1 MG TABLET 2 MG PO ×2 (05:07→13:41)
[2024-01-20] MEDS: POTASSIUM CHLORIDE 10 MEQ ER TABLET 30 MEQ PO ×3 (05:07→21:38)
[2024-01-20 05:44] LABS: Basophils Absolute Auto 0.1 10^3/uL (0.0-0.1); Basophils Percent Auto 0.3 % (0.2-2.0); Eosinophils Absolute Auto 0.5 10^3/uL (0.0-0.7); Eosinophils Percent Auto 2.8 % (0.9-7.0); Hematocrit 37.2 % (42.0-54.0); Hemoglobin 12.1 g/dL (14.0-18.0); Immature Granulocytes Abs Auto 0.14 10^3/uL (0.00-0.03); Immature Granulocytes Pct Auto 0.8 % (0.0-0.5); Lymphocytes Absolute Auto 2.4 10^3/uL (1.2-3.8); Lymphocytes Percent Auto 13.4 % (20.5-60.0); Mean Corpuscular HGB Conc 32.5 g/dL (29.9-35.2); Mean Corpuscular Hemoglobin 26.8 pg (25.9-34.0); Mean Corpuscular Volume 82.3 fL (80.0-94.0); Mean Platelet Volume 9.6 fL (9.5-13.5); Monocytes Absolute Auto 1.2 10^3/uL (0.3-0.8); Monocytes Percent Auto 6.8 % (1.7-12.0); Neutrophils Absolute Auto 13.5 10^3/uL (1.4-6.5); Neutrophils Percent Auto 75.9 % (43.0-75.0); Platelet Count 375 10^3/uL (150-450); Red Blood Count 4.52 10^6/uL (4.70-6.10); Red Cell Distribution Width 15.8 % (11.0-15.0); White Blood Count 17.7 10^3/uL (4.0-11.0)
[2024-01-20 05:50] LABS: INR 2.79; Prothrombin Time 27.9 sec (9.0-11.6)
[2024-01-20 05:55] LABS: Alanine Aminotransferase 22 U/L (16-63); Albumin Globulin Ratio 0.3; Albumin Level 1.6 g/dL (3.4-5.0); Alkaline Phosphatase 178 U/L (46-116); Anion Gap 10.7; Aspartate Amino Transferase 28 U/L (15-37); BUN Creatinine Ratio 41.3; Bilirubin Total 0.6 mg/dL (0.2-1.0); Calcium 8.5 mg/dL (8.5-10.1); Carbon Dioxide 30.1 mmol/L (21.0-32.0); Chloride 94 mmol/L (98-107); Estimated GFR (African America 59 (>=60); Estimated GFR (Non-African Ame 49 (>=60); Globulin 6.1 g/dL; Glucose 157 mg/dL (74-106); Potassium 3.8 mmol/L (3.5-5.1); Sodium 131 mmol/L (136-145); Total Protein 7.7 g/dL (6.4-8.2)
[2024-01-20] MEDS: INSULIN ASPART 300 UNIT/3 ML PEN SUBQ ×4 (08:02→21:40)
[2024-01-20] MEDS: PIPERACILLIN SODIUM/TAZOBACTAM 3.375 GM in 0.9 % SODIUM CHLORIDE 50 ML IV ×2 (08:03→15:36)
[2024-01-20] MEDS: CARVEDILOL 25 MG TABLET PO ×2 (08:04→21:38)
[2024-01-20] MEDS: METOLAZONE 2.5 MG TABLET PO (08:04)
[2024-01-20] MEDS: GABAPENTIN 400 MG CAPSULE PO ×2 (08:04→21:38)
[2024-01-20] MEDS: ASPIRIN 81 MG TABLET.DR PO (08:04)
[2024-01-20] MEDS: SPIRONOLACTONE 25 MG TABLET PO (08:04)
[2024-01-20] MEDS: ATORVASTATIN CALCIUM 40 MG TABLET 80 MG PO (08:04)
[2024-01-20] MEDS: 0.9 % SODIUM CHLORIDE 250 ML 10 ML IV (08:04)
[2024-01-20] MEDS: JUVEN PACKET 1 PACKET PO ×2 (08:05→21:38)
[2024-01-20] MEDS: DIGOXIN 125 MCG TABLET PO (08:05)
[2024-01-20] MEDS: ISOSORBIDE DINITRATE 20 MG TABLET PO ×2 (08:05→16:25)
[2024-01-20 11:18] LABS: Glucometer 414 mg/dL (74-106)
--- NOTE | 2024-01-20 11:24 | P.PN_ITS ---
Progress Note: Subjective Subjective Interval history: Patient states he does feel better today. White blood cell count is higher today though Exam Constitutional Vital Signs, click to edit/add: Last Vital Signs Temp 98.0 F 01/20/24 07:52 Pulse 86 01/20/24 09:55 Resp 18 01/20/24 07:52 BP 132/79 01/20/24 07:52 Pulse Ox 95 01/20/24 11:19 O2 Del Method Room Air 01/20/24 11:19 O2 Flow Rate 1 01/19/24 08:00 Documenting provider has reviewed patient's vital signs: yes Common normals: no apparent distress Chest Common normals: inspection of chest normal Respiratory Common normals: normal respiratory effort Cardio Common normals: regular rate and regular rhythm GI Common normals: Normal to inspection, nondistended, normoactive bowel sounds present Extremity Common normals: abnormal to inspection (Dressings in place) Progress Note: Objective Labs Labs: Short CBC 01/20/24 Range/Units 04:48 WBC 17.7 H (4.0-11.0) 10^3/uL Hgb 12.1 L (14.0-18.0) g/dL Hct 37.2 L (42.0-54.0) % Plt Count 375 (150-450) 10^3/uL BMP 01/20/24 04:48 Sodium 131 L Potassium 3.8 Chloride 94 L Carbon Dioxide 30.1 BUN 59.0 H Creatinine 1.43 H Glucose 157 H Calcium 8.5 Liver Function 01/20/24 Range/Units 04:48 Total Bilirubin 0.6 (0.2-1.0) mg/dL AST 28 (15-37) U/L ALT 22 (16-63) U/L Alkaline Phosphatase 178 H (46-116) U/L Albumin 1.6 L (3.4-5.0) g/dL Progress Note: A&P Assessment and Plan (1) Sepsis: Assessment and Plan: continue IV with IV antibiotics, will continue with Zosyn but changed to levoflo xacin based on sensitivities Qualifiers: Acute respiratory failure type: with hypoxia Sepsis acute organ dysfunction status: with acute organ dysfunction Sepsis type: sepsis due to unspecified organism Severe sepsis acute organ dysfunction type: acute respiratory failure Severe sepsis shock status: without septic shock Qualified Code(s): A41.9 - Sepsis, unspecified organism; R65.20 - Severe sepsis without septic shock; J96.01 - Acute respiratory failure with hypoxia (2) Cellulitis and abscess of lower extremity: Assessment and Plan: See wound treatment plan (3) Acute respiratory failure: Assessment and Plan: Acute on chronic. Improved today likely at baseline (4) Hypokalemia: Assessment and Plan: Improved (5) Dehydration with hyponatremia: Assessment and Plan: Improved (6) Chronic kidney disease, stage 3a: Assessment and Plan: Likely baseline (7) Chronic HFrEF (heart failure with reduced ejection fraction): Assessment and Plan: watch with any IVF addition, no apparent or clinical signs of overload, continue home medications (8) Paroxysmal atrial fibrillation: Assessment and Plan: daily INR, continue coumadin-elevated slightly today but in therapeutic range (9) Anemia in chronic kidney disease: Assessment and Plan: monitor CBC (10) Benign essential hypertension: Assessment and Plan: Lanoxin level normal (11) COPD (chronic obstructive pulmonary disease): Assessment and Plan: no acute exacerbation Qualifiers: COPD type: chronic bronchitis Chronic bronchitis type: unspecified Qualified Code(s): J42 - Unspecified chronic bronchitis (12) Hypothyroid: Assessment and Plan: continue levothyroxine (13) Type 2 diabetes mellitus with hyperglycemia: Assessment and Plan: Increased insulin sliding scale Qualifiers: Diabetes mellitus middle or intermediate school principal insulin use: without middle or intermediate school principal use Qualified Code(s): E11.65 - Type 2 diabetes mellitus with hyperglycemia (14) HLD (hyperlipidemia): Assessment and Plan: continue statin Plan See plan from wound therapy
[2024-01-20] MEDS: LEVOFLOXACIN IN DEXTROSE 5 % 750 MG/150 ML IV.SOLN 100 MG IV (13:41)
[2024-01-20] MEDS: WARFARIN SODIUM 5 MG TABLET PO (16:25)
[2024-01-20 16:35] LABS: Glucometer 441 mg/dL (74-106)
[2024-01-20 20:24] LABS: Glucometer 338 mg/dL (74-106)
[2024-01-20] MEDS: AMITRIPTYLINE HCL 25 MG TABLET PO (21:38)
[2024-01-20] MEDS: PROSTAT 15 GM PROTEIN/100 CAL 30 ML LIQUID PACKET PO (21:38)
[2024-01-21] VITALS (19 sets, daily range): BP systolic 101–125; BP diastolic 61–78; PULSE 81–87; RESP 18–20; TEMP 36.1–38.2; O2SAT 91–99
[2024-01-21] MEDS: PIPERACILLIN SODIUM/TAZOBACTAM 3.375 GM in 0.9 % SODIUM CHLORIDE 50 ML IV ×4 (00:06→23:37)
[2024-01-21 05:37] LABS: Basophils Absolute Auto 0.1 10^3/uL (0.0-0.1); Basophils Percent Auto 0.3 % (0.2-2.0); Eosinophils Absolute Auto 0.3 10^3/uL (0.0-0.7); Eosinophils Percent Auto 1.4 % (0.9-7.0); Hematocrit 36.2 % (42.0-54.0); Hemoglobin 11.7 g/dL (14.0-18.0); Immature Granulocytes Abs Auto 0.17 10^3/uL (0.00-0.03); Immature Granulocytes Pct Auto 0.8 % (0.0-0.5); Lymphocytes Absolute Auto 2.3 10^3/uL (1.2-3.8); Lymphocytes Percent Auto 10.8 % (20.5-60.0); Mean Corpuscular HGB Conc 32.3 g/dL (29.9-35.2); Mean Corpuscular Hemoglobin 26.8 pg (25.9-34.0); Mean Platelet Volume 9.9 fL (9.5-13.5); Monocytes Absolute Auto 1.3 10^3/uL (0.3-0.8); Monocytes Percent Auto 5.9 % (1.7-12.0); Neutrophils Absolute Auto 17.5 10^3/uL (1.4-6.5); Neutrophils Percent Auto 80.8 % (43.0-75.0); Platelet Count 387 10^3/uL (150-450); Red Blood Count 4.36 10^6/uL (4.70-6.10); Red Cell Distribution Width 15.7 % (11.0-15.0); White Blood Count 21.7 10^3/uL (4.0-11.0)
[2024-01-21] MEDS: POTASSIUM CHLORIDE 10 MEQ ER TABLET 30 MEQ PO ×3 (05:40→20:31)
[2024-01-21 05:41] LABS: INR 3.97; Prothrombin Time 38.9 sec (9.0-11.6)
[2024-01-21] MEDS: BUMETANIDE 1 MG TABLET 2 MG PO (05:41)
[2024-01-21] MEDS: ACETAMINOPHEN 500 MG TABLET 1000 MG PO (05:41)
[2024-01-21] MEDS: LEVOTHYROXINE SODIUM 25 MCG TABLET 50 MCG PO (05:41)
[2024-01-21 05:50] LABS: Alanine Aminotransferase 29 U/L (16-63); Albumin Globulin Ratio 0.3; Albumin Level 1.6 g/dL (3.4-5.0); Alkaline Phosphatase 175 U/L (46-116); Anion Gap 9.5; Aspartate Amino Transferase 34 U/L (15-37); BUN Creatinine Ratio 36.1; Bilirubin Total 0.6 mg/dL (0.2-1.0); Calcium 8.3 mg/dL (8.5-10.1); Carbon Dioxide 31.7 mmol/L (21.0-32.0); Chloride 92 mmol/L (98-107); Estimated GFR (African America 43 (>=60); Estimated GFR (Non-African Ame 35 (>=60); Globulin 6.1 g/dL; Glucose 199 mg/dL (74-106); Potassium 4.2 mmol/L (3.5-5.1); Sodium 129 mmol/L (136-145); Total Protein 7.7 g/dL (6.4-8.2)
[2024-01-21 07:43] LABS: Glucometer 239 mg/dL (74-106)
--- NOTE | 2024-01-21 09:02 | P.PN_ITS ---
Progress Note: Subjective Subjective Interval history: Patient states feels about the same as previous day. Looks more fatigued today Exam Constitutional Vital Signs, click to edit/add: Last Vital Signs Temp 97.1 F L 01/21/24 07:46 Pulse 86 01/21/24 08:00 Resp 18 01/21/24 07:46 BP 103/61 01/21/24 07:46 Pulse Ox 95 01/21/24 07:46 O2 Del Method Room Air 01/21/24 07:46 O2 Flow Rate 1 01/19/24 08:00 Documenting provider has reviewed patient's vital signs: yes Common normals: no apparent distress Chest Common normals: inspection of chest normal Respiratory Common normals: normal respiratory effort Cardio Common normals: regular rate and regular rhythm GI Common normals: Normal to inspection, nondistended, normoactive bowel sounds present Extremity Common normals: abnormal to inspection (Dressings in place) Progress Note: Objective Labs Labs: Short CBC 01/21/24 Range/Units 04:45 WBC 21.7 H (4.0-11.0) 10^3/uL Hgb 11.7 L (14.0-18.0) g/dL Hct 36.2 L (42.0-54.0) % Plt Count 387 (150-450) 10^3/uL BMP 01/21/24 04:45 Sodium 129 L Potassium 4.2 Chloride 92 L Carbon Dioxide 31.7 BUN 69.0 H Creatinine 1.91 H Glucose 199 H Calcium 8.3 L Liver Function 01/21/24 Range/Units 04:45 Total Bilirubin 0.6 (0.2-1.0) mg/dL AST 34 (15-37) U/L ALT 29 (16-63) U/L Alkaline Phosphatase 175 H (46-116) U/L Albumin 1.6 L (3.4-5.0) g/dL Progress Note: A&P Assessment and Plan (1) Sepsis: Assessment and Plan: Patient spiked a fever last night, repeated blood cultures, check urine culture changed antibiotics again. White blood cell count also higher Qualifiers: Acute respiratory failure type: with hypoxia Sepsis acute organ dysfunction status: with acute organ dysfunction Sepsis type: sepsis due to unspecified organism Severe sepsis acute organ dysfunction type: acute respiratory failure Severe sepsis shock status: without septic shock Qualified Code(s): A41.9 - Sepsis, unspecified organism; R65.20 - Severe sepsis without septic shock; J96.01 - Acute respiratory failure with hypoxia (2) Cellulitis and abscess of lower extremity: Assessment and Plan: See of (3) Acute respiratory failure: Assessment and Plan: Acute on chronic. Improved today likely at baseline (4) Hypokalemia: Assessment and Plan: Improved (5) Dehydration with hyponatremia: Assessment and Plan: Improved (6) Chronic kidney disease, stage 3a: Assessment and Plan: Deteriorated today (7) Chronic HFrEF (heart failure with reduced ejection fraction): Assessment and Plan: Creatinine creeping up today, will hold off on Bumex. No peripheral edema (8) Paroxysmal atrial fibrillation: Assessment and Plan: daily INR, continue coumadin-elevated slightly today but in therapeutic range (9) Anemia in chronic kidney disease: Assessment and Plan: monitor CBC (10) Benign essential hypertension: Assessment and Plan: Lanoxin level normal (11) COPD (chronic obstructive pulmonary disease): Assessment and Plan: no acute exacerbation Qualifiers: COPD type: chronic bronchitis Chronic bronchitis type: unspecified Qualified Code(s): J42 - Unspecified chronic bronchitis (12) Hypothyroid: Assessment and Plan: continue levothyroxine (13) Type 2 diabetes mellitus with hyperglycemia: Assessment and Plan: Increased insulin sliding scale Qualifiers: Diabetes mellitus long term care social worker insulin use: without long term care social worker use Qualified Code(s): E11.65 - Type 2 diabetes mellitus with hyperglycemia (14) HLD (hyperlipidemia): Assessment and Plan: continue statin Plan Patient was planning on being discharged to rehab today but with fever spike, creatinine elevation and leukocytosis deteriorated, patient will need to stay at least 1 additional day and likely two
[2024-01-21] MEDS: INSULIN ASPART 300 UNIT/3 ML PEN SUBQ ×4 (09:06→20:42)
[2024-01-21] MEDS: PROSTAT 15 GM PROTEIN/100 CAL 30 ML LIQUID PACKET PO ×2 (09:08→20:31)
[2024-01-21] MEDS: JUVEN PACKET 1 PACKET PO ×2 (09:08→20:31)
[2024-01-21] MEDS: LINEZOLID IN DEXTROSE 5% 600 MG/300 ML PIGGYBACK 300 MG IV (09:09)
[2024-01-21] MEDS: SPIRONOLACTONE 25 MG TABLET PO (09:14)
[2024-01-21] MEDS: DIGOXIN 125 MCG TABLET PO (09:14)
[2024-01-21] MEDS: CARVEDILOL 25 MG TABLET PO ×2 (09:14→20:31)
[2024-01-21] MEDS: METOLAZONE 2.5 MG TABLET PO (09:15)
[2024-01-21] MEDS: GABAPENTIN 400 MG CAPSULE PO ×2 (09:15→20:31)
[2024-01-21] MEDS: ASPIRIN 81 MG TABLET.DR PO (09:15)
[2024-01-21] MEDS: ATORVASTATIN CALCIUM 40 MG TABLET 80 MG PO (09:15)
[2024-01-21] MEDS: ISOSORBIDE DINITRATE 20 MG TABLET PO ×2 (09:15→16:10)
[2024-01-21] MEDS: INSULIN DETEMIR 300 UNIT/3 ML INSULN.PEN 20 UNIT SQ ×2 (09:22→20:40)
--- NOTE | 2024-01-21 09:22 | SWNOTE1 ---
Pt is approved to go to [facility]. SW updated doctor.
[2024-01-21 09:28] LABS: Bilirubin Urine NEGATIVE (NEGATIVE); Blood Urine LARGE (NEGATIVE); Clarity Urine CLEAR (CLEAR); Color Urine LT. YELLOW (YELLOW); Glucose Urine UA NEGATIVE (NEGATIVE); Ketones Urine NEGATIVE (NEGATIVE); Leukocyte Esterase Urine NEGATIVE (NEGATIVE); Nitrite Urine NEGATIVE (NEGATIVE); Protein Urine 100 mg/dL (NEG/TRACE); Specific Gravity Urine 1.015 (1.005-1.025); Urobilinogen Urine 0.2 EU/dL (0.2-1.0); pH Urine 5.5 (5.0-9.0)
--- NOTE | 2024-01-21 09:28 | SWNOTE1 ---
Pt is not discharging today. SW checked with Tyesha at [facility] and the precert is good thru 01/23/24, SW let doctor know.
--- NOTE | 2024-01-21 09:38 | CM.NOTE ---
Rounds made with Dr. Saldana. Dr. Saldana reviewed labs with Mr. Brink and need to change IV antibiotic. Mr. Kauffman verbalizes understanding. No plan for discharge today.
[2024-01-21 09:46] LABS: WBC Urine NONE SEEN #/HPF (NONE SEEN)
[2024-01-21 09:47] LABS: Bacteria Urine TRACE #/HPF (NONE SEEN); Mucus Urine NONE SEEN (NONE SEEN); Squamous Epithelial Cell Urine FEW #/LPF (NONE/RARE)
[2024-01-21] MEDS: AMIKACIN SULFATE IV (10:33)
[2024-01-21] MEDS: SODIUM CHLORIDE 0.9% IV (10:33)
[2024-01-21] MEDS: 0.9 % SODIUM CHLORIDE 250 ML 10 ML IV (10:35)
--- NOTE | 2024-01-21 11:03 | PT.DAILY ---
Physical Therapy Daily Note PT Daily Note/Assess Start: 01/17/24 09:31 Freq: Status: Active Protocol: Document 01/21/24 10:59 AGATA (Rec: 01/21/24 11:02 AGATA [id number]) Physical Therapy Daily Note/Assessment Time In/Time Out Time In 10:35 Time Out 10:45 Pain In Pain N/A Pain Out Pain N/A Subjective Subjective Supine upon arrival. Agrees to get into chair. Therapeutic Exercise Time Therapeutic Exercise Minutes (minutes) 3 Therapeutic Exercise Units 0 Therapeutic Exercise Treatment Therapeutic Exercise Treatment Seated AP, LAQ and marches 5- 10x with vc to keep going Therapeutic Activity Time Therapeutic Activity Minutes (minutes) 7 Therapeutic Activity Units 1 Therapeutic Activity Treatment Bed Mobility Ability Maximum Assist Chair Transfer Ability Maximum Assist,2 Person Assist Therapeutic Activity Comments Supine>sit MaxA to advance upper body to sit at EOB with increased time needed to complete. Sit>stand MaxA+2, stand pivot to BS chair MaxA with vc to try to maintain NWB L LE. Pt unable to maintain NWB L LE. Sits in BS chair to complete seated ex. Call light in reach and needs met. Total Physical Therapy Time Total Therapy Minutes 10 Total Physical Therapy Units 1 Summary Daily Note Summary Poor transfer ability due to weakness and NWB L LE.
[2024-01-21 11:21] LABS: Glucometer 403 mg/dL (74-106)
--- NOTE | 2024-01-21 13:28 | SWNOTE1 ---
physician notes, med list, PT notes, vitals, labs, and nursing notes sent to Moira at [facility].
[2024-01-21 16:46] LABS: Glucometer 271 mg/dL (74-106)
[2024-01-21 20:02] LABS: Glucometer 355 mg/dL (74-106)
[2024-01-21] MEDS: AMITRIPTYLINE HCL 25 MG TABLET PO (20:31)
[2024-01-21] MEDS: LINEZOLID IN DEXTROSE 5% 600 MG/300 ML PIGGYBACK 150 MG IV (20:32)
--- NOTE | 2024-01-21 22:06 | PC.NURSE ---
Pt has a large liquid brown stool
[2024-01-22] VITALS (21 sets, daily range): BP systolic 113–124; BP diastolic 64–77; PULSE 72–884; RESP 18–20; TEMP 36.4–37.1; O2SAT 91–96
--- NOTE | 2024-01-22 00:18 | PC.NURSE ---
Shiv Pinedo OPTOMETRIC TECHNOLOGIST contacted via tiger text regarding need for Pinxav for pt's buttocks d/t continuous diarrhea. Shiv returns calls and verbal order received for Pinxav.
[2024-01-22 02:22] LABS: Occult Blood Negative
[2024-01-22] MEDS: POTASSIUM CHLORIDE 10 MEQ ER TABLET 30 MEQ PO ×3 (05:11→21:03)
[2024-01-22] MEDS: LEVOTHYROXINE SODIUM 25 MCG TABLET 50 MCG PO (05:11)
[2024-01-22] MEDS: HYDROCODONE/ACET 5-325 MG TABLET 1 TAB PO (05:12)
[2024-01-22 05:27] LABS: Basophils Absolute Auto 0.1 10^3/uL (0.0-0.1); Basophils Percent Auto 0.3 % (0.2-2.0); Eosinophils Absolute Auto 0.4 10^3/uL (0.0-0.7); Eosinophils Percent Auto 2.4 % (0.9-7.0); Hematocrit 35.4 % (42.0-54.0); Hemoglobin 11.5 g/dL (14.0-18.0); Immature Granulocytes Abs Auto 0.14 10^3/uL (0.00-0.03); Immature Granulocytes Pct Auto 0.8 % (0.0-0.5); Lymphocytes Absolute Auto 1.5 10^3/uL (1.2-3.8); Lymphocytes Percent Auto 8.3 % (20.5-60.0); Mean Corpuscular HGB Conc 32.5 g/dL (29.9-35.2); Mean Corpuscular Hemoglobin 26.7 pg (25.9-34.0); Mean Corpuscular Volume 82.1 fL (80.0-94.0); Mean Platelet Volume 9.7 fL (9.5-13.5); Monocytes Percent Auto 5.8 % (1.7-12.0); Neutrophils Absolute Auto 14.6 10^3/uL (1.4-6.5); Neutrophils Percent Auto 82.4 % (43.0-75.0); Platelet Count 347 10^3/uL (150-450); Red Blood Count 4.31 10^6/uL (4.70-6.10); Red Cell Distribution Width 15.9 % (11.0-15.0); White Blood Count 17.8 10^3/uL (4.0-11.0)
[2024-01-22 06:06] LABS: Alanine Aminotransferase 27 U/L (16-63); Albumin Globulin Ratio 0.3; Albumin Level 1.6 g/dL (3.4-5.0); Alkaline Phosphatase 169 U/L (46-116); Anion Gap 10.1; Aspartate Amino Transferase 35 U/L (15-37); BUN Creatinine Ratio 45.9; Bilirubin Total 0.5 mg/dL (0.2-1.0); Calcium 8.4 mg/dL (8.5-10.1); Carbon Dioxide 28.9 mmol/L (21.0-32.0); Chloride 93 mmol/L (98-107); Estimated GFR (African America 45 (>=60); Estimated GFR (Non-African Ame 37 (>=60); Glucose 267 mg/dL (74-106); Sodium 128 mmol/L (136-145); Total Protein 7.6 g/dL (6.4-8.2)
[2024-01-22] MEDS: INSULIN ASPART 300 UNIT/3 ML PEN SUBQ ×4 (07:52→21:07)
[2024-01-22] MEDS: PIPERACILLIN SODIUM/TAZOBACTAM 3.375 GM in 0.9 % SODIUM CHLORIDE 50 ML IV (07:57)
[2024-01-22] MEDS: LINEZOLID IN DEXTROSE 5% 600 MG/300 ML PIGGYBACK 300 MG IV ×2 (08:01→21:04)
[2024-01-22] MEDS: INSULIN DETEMIR 300 UNIT/3 ML INSULN.PEN 20 UNIT SQ (08:01)
[2024-01-22] MEDS: ASPIRIN 81 MG TABLET.DR PO (08:02)
[2024-01-22] MEDS: DIGOXIN 125 MCG TABLET PO (08:02)
[2024-01-22] MEDS: ISOSORBIDE DINITRATE 20 MG TABLET PO ×2 (08:02→16:40)
[2024-01-22] MEDS: PROSTAT 15 GM PROTEIN/100 CAL 30 ML LIQUID PACKET PO ×2 (08:02→21:03)
[2024-01-22] MEDS: JUVEN PACKET 1 PACKET PO ×2 (08:02→21:03)
[2024-01-22] MEDS: CARVEDILOL 25 MG TABLET PO ×2 (08:02→21:04)
[2024-01-22] MEDS: ATORVASTATIN CALCIUM 40 MG TABLET 80 MG PO (08:02)
[2024-01-22] MEDS: METOLAZONE 2.5 MG TABLET PO (08:02)
[2024-01-22] MEDS: SPIRONOLACTONE 25 MG TABLET PO (08:02)
[2024-01-22] MEDS: GABAPENTIN 400 MG CAPSULE PO ×2 (08:02→21:04)
[2024-01-22] MEDS: SODIUM CHLORIDE 0.9% IV (09:09)
[2024-01-22] MEDS: AMIKACIN SULFATE IV (09:09)
[2024-01-22] MEDS: 0.9 % SODIUM CHLORIDE 250 ML 10 ML IV (09:09)
--- NOTE | 2024-01-22 09:47 | CM.NOTE ---
Rounds made with Dr. Saldana. Dr. Saldana to re-consult for Wound for plan of care. Mr. Kauffman verbalizes understanding.
--- NOTE | 2024-01-22 10:43 | SWNOTE1 ---
No discharge today.
[2024-01-22] MEDS: COLLAGENASE CLOSTRIDIUM HIST. 250 UNITS/GM 30 GRAM TUBE 1 APPLIC TOPICAL (10:46)
[2024-01-22 11:27] LABS: Glucometer 358 mg/dL (74-106)
--- NOTE | 2024-01-22 11:57 | PT.DAILY ---
Physical Therapy Daily Note PT Daily Note/Assess Start: 01/17/24 09:31 Freq: Status: Active Protocol: Document 01/22/24 11:53 AGATA (Rec: 01/22/24 11:57 AGATA [id number]) Physical Therapy Daily Note/Assessment Time In/Time Out Time In 11:15 Time Out 11:30 Pain In Pain N/A Pain Out Pain N/A Subjective Subjective Pt sitting in BS chair upon arrival. Agrees to PT. Therapeutic Exercise Time Therapeutic Exercise Minutes (minutes) 5 Therapeutic Exercise Units 0 Therapeutic Exercise Treatment Therapeutic Exercise Treatment Long sitting in BS chair with feet elevated pt performs AP, QS, GS 10x ea. Feet lowered AP , LAQ, marches and add squeezes 10x ea. Therapeutic Activity Time Therapeutic Activity Minutes (minutes) 7 Therapeutic Activity Units 1 Therapeutic Activity Treatment Chair Transfer Ability Moderate Assist,Maximum Assist Therapeutic Activity Comments Sit>stand to RW MaxA with heavy posterior lean for 8 sec standing tolerance before needing rest break. Second attempt ModA and 10 sec tolerance. Attempting to maintain NWB L LE but pt unable to fully unweight his L Foot with multiple cues. Total Physical Therapy Time Total Therapy Minutes 12 Total Physical Therapy Units 1 Summary Daily Note Summary Slight improvement with transfer ability and standing tolerance with second attempt today.
--- NOTE | 2024-01-22 12:05 | P.PN_ITS ---
<Statement entered by Eliud Saldana MD - 01/23/24 05:56> This documentation has been reviewed and approved. Patient seen and evaluated evaluated in the morning of this record. Agree with input and findings as outlined Patient looks much improved from previous day. White blood cell count overall improving. Continue with current treatment plan Progress Note: Subjective Subjective Interval history: 01/22/24 0900 The patient is resting in bed. He states he is not doing too well , but looks improved since admission. He no longer complains of pain to his knees, but does have pain at the surgical site on his left foot. He has defervesced in the last 24 hours and his WBCs are trending down after the addition of amikacin to his antibiotic profile. His renal function is also beginning to improve again. We will monitor him for another 24-48 hrs and then d/c to a local SNF. A PICC line will be placed today to allow for termite renewal inspector antibiotics at the SNF. Exam Constitutional Vital Signs, click to edit/add: Last Vital Signs Temp 98 F 01/22/24 07:50 Pulse 85 01/22/24 11:48 Resp 20 01/22/24 07:50 BP 121/69 01/22/24 07:50 Pulse Ox 92 L 01/22/24 10:23 O2 Del Method Room Air 01/22/24 10:23 O2 Flow Rate 1 01/19/24 08:00 Common normals: no apparent distress, oriented x3 and alert General appearance: cooperative Orientation/consciousness: Yes awake HENCT Common normals: normocephalic, head/scalp atraumatic and hearing grossly normal bilaterally Eye Common normals: PERRL, EOMs intact bilaterally, conjunctivae normal and no scleral icterus General eye: normal appearance of both eyes Chest Common normals: inspection of chest normal Chest: symmetrical chest wall rise Respiratory Common normals: normal respiratory effort and no use of accessory muscles Effort & inspection: able to speak in complete sentences Auscultation: wheezes (Faint EE scattered throughout) Cardio Common normals: regular rate, regular rhythm, S1 normal heart sound, S2 normal heart sound and peripheral pulses 2+ throughout Heart sounds: murmur (HSM 2/6) GI Common normals: Normal to inspection, nondistended, normoactive bowel sounds present, soft to palpation, non-tender and no hepatosplenomegaly Bladder/kidney exam: bladder normal to palpation Extremity Common normals: normal to inspection and no calf tenderness General: no clubbing, no cyanosis and no edema Other: BLE, BUE non-healing DM2 wounds scattered throughout. R index wound w/ minimal purulent drainage - culture ordered. All BLE wounds w/ dressings in place, D&I Neuro Common normals: CN's II-XII intact bilaterally, moves all extremities, no focal motor deficits and no sensory deficits noted Psych Common normals: mental status grossly normal Progress Note: Objective Labs Labs: Short CBC 01/22/24 Range/Units 04:53 WBC 17.8 H (4.0-11.0) 10^3/uL Hgb 11.5 L (14.0-18.0) g/dL Hct 35.4 L (42.0-54.0) % Plt Count 347 (150-450) 10^3/uL BMP 01/22/24 04:53 Sodium 128 L Potassium 4.0 Chloride 93 L Carbon Dioxide 28.9 BUN 84.0 H* Creatinine 1.83 H Glucose 267 H Calcium 8.4 L Liver Function 01/22/24 Range/Units 04:53 Total Bilirubin 0.5 (0.2-1.0) mg/dL AST 35 (15-37) U/L ALT 27 (16-63) U/L Alkaline Phosphatase 169 H (46-116) U/L Albumin 1.6 L (3.4-5.0) g/dL Progress Note: A&P Assessment and Plan (1) Sepsis: Assessment and Plan: Acute * Improving * Afebrile x 24 hrs, WBCs trending down again * Urine culture, repeat blood cultures pending * Continue Amikacin (added 01/21/24), Zosyn, and Zyvox (added 01/21/24 per e.faecalis on wound culture/poor kidney function) * See Cellulitis/abscess from DM wounds below * CBC, CMP daily Qualifiers: Acute respiratory failure type: with hypoxia Sepsis acute organ dysfunction status: with acute organ dysfunction Sepsis type: sepsis due to unspecified organism Severe sepsis acute organ dysfunction type: acute respiratory failure Severe sepsis shock status: without septic shock Qualified Code(s): A41.9 - Sepsis, unspecified organism; R65.20 - Severe sepsis without septic shock; J96.01 - Acute respiratory failure with hypoxia (2) Cellulitis and abscess of lower extremity: Assessment and Plan: Acute * From uncontrolled DM2 wounds * s/p I&D per Dr Van on 01/17/24 * Wound vac in place * Consults to Podiatry and wound care. * Continue Prostat * Continue Amikacin (added 01/21/24), Zosyn, and Zyvox (added 01/21/24 per e.faecalis on wound culture/poor kidney function) * Wound culture grown E. hormaechei, S. aureas, P. species, E. faecalis * CBC, CMP daily (3) Acute respiratory failure: Assessment and Plan: Acute on chronic. * Resolved - at baseline (4) Hypokalemia: Assessment and Plan: Acute * Resolved (5) Dehydration with hyponatremia: Assessment and Plan: Acute * Dehydration resolved * Pseudohyponatremia persists (128), nearly normal (132) when corrected for hyperglycemia (6) Chronic kidney disease, stage 3a: Assessment and Plan: Chronic * Improving today * Likely within baseline range of CKD3b/4 (7) Chronic HFrEF (heart failure with reduced ejection fraction): Assessment and Plan: Chronic * Very low EF (10-15%) at baseline * Bumex held yesterday d/t worsening renal failure * No evidence of peripheral edema to date * Plan to resume this afternoon * Hold spironolactone for now d/t concern for renal function * Daily weights, strict I&O (8) Paroxysmal atrial fibrillation: Assessment and Plan: Chronic * INR continues to rise (4.42) despite holding warfarin yesterday. * D/C warfarin 5 mg * Likely resume 2.5 mg once INR is therapeutic again * Consider Vit K or FFP if needed to allow for PICC line insertion, otherwise, plan to allow to drift down slowly as no active bleeding * Continue home digoxin, Coreg for rate control * digoxin level WNL (9) Anemia in chronic kidney disease: Assessment and Plan: Chronic * stable * CBC daily (10) Benign essential hypertension: Assessment and Plan: Chronic * Continue home Imdur, Coreg, Hydralazine, Lanoxin level normal (11) COPD (chronic obstructive pulmonary disease): Assessment and Plan: Chronic * no acute exacerbation - stable Qualifiers: COPD type: chronic bronchitis Chronic bronchitis type: unspecified Qualified Code(s): J42 - Unspecified chronic bronchitis (12) Hypothyroid: Assessment and Plan: Chronic * continue levothyroxine (13) Type 2 diabetes mellitus with hyperglycemia: Assessment and Plan: Chronic * Insulin sliding scale increased on 01/21/24 but hyperglycemia persists * Increase Levemir to 22 un BID Qualifiers: Diabetes mellitus snf insulin use: without snf use Qualified Code(s): E11.65 - Type 2 diabetes mellitus with hyperglycemia (14) HLD (hyperlipidemia): Assessment and Plan: Chronic * continue statin Plan Likely d/c tomorrow on IVPB antibiotics
[2024-01-22 12:35] LABS: INR 4.42; Prothrombin Time 43.1 sec (9.0-11.6)
--- NOTE | 2024-01-22 14:31 | SWNOTE1 ---
Pt will need IV anbx at discharge. ANDREW has sent [facility] the list of antibiotics he will be on, 2 IV, 1 IM. ANDREW sent to Moira, she voiced that they were all fine.
[2024-01-22 14:43] LABS: C. Difficile PCR NEGATIVE (NEGATIVE)
[2024-01-22] MEDS: LOPERAMIDE HCL 2 MG CAPSULE 4 MG PO (15:01)
[2024-01-22] MEDS: BUMETANIDE 1 MG TABLET 2 MG PO ×2 (15:02→21:03)
[2024-01-22] MEDS: PIPERACILLIN SODIUM/TAZOBACTAM 3.375 GM in 0.9 % SODIUM CHLORIDE 50 ML 12.5199999999999996 GM IV (15:02)
--- NOTE | 2024-01-22 15:06 | SWNOTE1 ---
ANDREW sent over updated physician notes, cultures, PT/OT notes, vitals, nursing notes, and labs to Moira at [facility].
[2024-01-22 16:21] LABS: Glucometer 281 mg/dL (74-106)
--- NOTE | 2024-01-22 17:29 | P.PN_ITS ---
Progress Note: Subjective Subjective Interval history: Patient seen resting comfortably at bedside this a.m, Appears to be in good spirits. POD #5 s/p left foot incision and drainage with extensive soft tissue debridement and partial excision of fifth metatarsal DOS 01/17/2024. Today he reports an increase in pain in the left foot. States he is feeling better overall, however had a period yesterday where he was feeling somewhat worse and had A spike in temperature as well as his white count. He denied any constitutional symptoms at time of visit. Exam Narrative Exam Narrative: Vascular: DP and PT pulses faintly palpable bilateral. CFT intact to digits. Skin temperature warm to cool proximal distal without focal increase. Nonpitting edema and erythema to left foot and leg, mildly improved. Neuro: Light touch and gross sensation absent to digits consistent with baseline. Derm: Multiple superficial abrasions to bilateral pretibial region. Full- thickness ulceration, unstageable with overlying dry stable eschar to the right posterior heel, stable with no fluctuance crepitus or bogginess. Full-thickness ulceration to the left posterior heel, mixed fibrogranular base, decreased in size with no signs of acute infection here. Full-thickness ulceration to the left plantar and lateral forefoot with extensive soft tissue loss following debridement, exposed fifth metatarsal base remnant. Mixed granular and necrotic base with increased skin Necrosis around the wound edges from previous. No fluctuance crepitus or bogginess. No further purulence expressed today. Mild sanguinous drainage.. MSK: Mild palpatory tenderness to the left foot during dressing change, nonspecific. No pain with calf or thigh compression. Constitutional Vital Signs, click to edit/add: Last Vital Signs Temp 97.6 F 01/22/24 13:55 Pulse 85 01/22/24 15:57 Resp 20 01/22/24 13:55 BP 113/64 01/22/24 13:55 Pulse Ox 92 L 01/22/24 13:55 O2 Del Method Room Air 01/22/24 13:55 O2 Flow Rate 1 01/19/24 08:00 Progress Note: Objective Labs Labs: Short CBC 01/22/24 Range/Units 04:53 WBC 17.8 H (4.0-11.0) 10^3/uL Hgb 11.5 L (14.0-18.0) g/dL Hct 35.4 L (42.0-54.0) % Plt Count 347 (150-450) 10^3/uL BMP 01/22/24 04:53 Sodium 128 L Potassium 4.0 Chloride 93 L Carbon Dioxide 28.9 BUN 84.0 H* Creatinine 1.83 H Glucose 267 H Calcium 8.4 L Liver Function 01/22/24 Range/Units 04:53 Total Bilirubin 0.5 (0.2-1.0) mg/dL AST 35 (15-37) U/L ALT 27 (16-63) U/L Alkaline Phosphatase 169 H (46-116) U/L Albumin 1.6 L (3.4-5.0) g/dL Progress Note: A&P Assessment and Plan (1) Sepsis: Qualifiers: Acute respiratory failure type: with hypoxia Sepsis acute organ dysfunction status: with acute organ dysfunction Sepsis type: sepsis due to unspecified organism Severe sepsis acute organ dysfunction type: acute respir atory failure Severe sepsis shock status: without septic shock Qualified Code(s): A41.9 - Sepsis, unspecified organism; R65.20 - Severe sepsis without septic shock; J96.01 - Acute respiratory failure with hypoxia (2) Cellulitis and abscess of lower extremity: (3) Acute respiratory failure: (4) Hypokalemia: (5) Dehydration with hyponatremia: (6) Chronic kidney disease, stage 3a: (7) Chronic HFrEF (heart failure with reduced ejection fraction): (8) Paroxysmal atrial fibrillation: (9) Anemia in chronic kidney disease: (10) Benign essential hypertension: (11) COPD (chronic obstructive pulmonary disease): Qualifiers: COPD type: chronic bronchitis Chronic bronchitis type: unspecified Qualified Code(s): J42 - Unspecified chronic bronchitis (12) Hypothyroid: (13) Type 2 diabetes mellitus with hyperglycemia: Qualifiers: Diabetes mellitus terminal carman insulin use: without terminal carman use Qualified Code(s): E11.65 - Type 2 diabetes mellitus with hyperglycemia (14) HLD (hyperlipidemia): Plan Patient examined evaluated. All findings discussed with patient all questions answered by satisfaction. Pertinent labs and imaging reviewed. Leukocytosis was downtrending over the weekend, however had a spike at 21 yesterday but is again downtrending today at 17. Been afebrile for 24 hours.. Left foot dressing changed with Dakin's moistened gauze to plantar lateral foot ulceration, Santyl and dry sterile dressing applied to the bilateral heels. Av oid circumferential compression. Continue offloading with pillow and PRAFO boots. Plan for wound VAC as outpatient upon DC to SNF. Currently on IV amikacin, Zosyn and Zyvox. IntraOp cultures with Enterobacter hormaechei, staph aureus, proteus, and E faecalis Dressings to be changed 2-3 times per week until discharge, reinforce as needed. Due to extensive necrosis and soft tissue loss, patient ultimately would benefit from proximal amputation, however due to his multiple comorbid conditions and cardiovascular health he is a poor surgical candidate and likely at very high risk for intraoperative complications including loss of life. Therefore recommend continuing with local supportive wound care and IV antibiotics. No further surgical intervention is recommended at this point, we will continue to follow. Anticipating DC to SNF in the next 1 to 2 days pending continued clinical improvement. Please call with questions or concerns.
--- NOTE | 2024-01-22 19:49 | XR_ITS ---
The [address] [address] Patient Name: ADWOA PORTER MRN: [id number] date: 1955 Sex: M Assigned Patient Location: [place] Current Patient Location: [place] Accession/Order Number: [id number] Exam Date: 01/22/2024 19:42 Report Date: 01/22/2024 20:45 At the request of: KIRAN BOO Procedure: XR chest 1V SINGLE VIEW CHEST: 01/22/2024 7:42 PM EST CLINICAL HISTORY:PICC line placement COMPARISONS: Portable chest 01/16/2024 TECHNIQUE: Single frontal view of the chest, utilizing portable technique. Portable radiography should be considered a technically compromised study. Strongly consider dedicated PA and lateral chest radiographs, as clinically indicated. FINDINGS: LINES AND TUBES: Cardiac conduction device stable left axillary and chest wall with leads extending to right heart chambers. Interval placement of right arm PICC line with tip overlying expected region of SVC. CARDIAC SILHOUETTE: Stable mild cardiac silhouette enlargement. MEDIASTINAL AND HILAR CONTOUR: Within normal limits. PULMONARY PARENCHYMA AND PLEURA: Question of subtle versus early developing right lower lobe infiltrate. Correlate for any signs of right basilar pneumonia. Remainder of both lungs are clear and expanded. Well-defined pleural margins. OSSEOUS STRUCTURES:Nothing significant. OTHER COMMENTS:Atherosclerotic calcifications of the aorta. XR/XR chest 1V IMPRESSION: 1. Satisfactory right PICC line position. 2. Question of vague early right lower lobe infiltrate/pneumonia versus overlap of vessels and lung markings and ribs. Correlate with symptoms. This report was generated with voice recognition software. Effort has been made to ensure accuracy of this report, however, occasional wording errors may persist. Please contact our office with any questions. Electronically authenticated by: ORLY MALDONADO Date: 01/22/2024 20:45
[2024-01-22 21:04] LABS: Glucometer 331 mg/dL (74-106)
[2024-01-22] MEDS: INSULIN DETEMIR 300 UNIT/3 ML INSULN.PEN 22 UNIT SQ (21:06)
[2024-01-23] VITALS (13 sets, daily range): BP systolic 122–124; BP diastolic 63–74; PULSE 72–88; RESP 16–18; TEMP 36.5–36.6; O2SAT 85–96
[2024-01-23] MEDS: PIPERACILLIN SODIUM/TAZOBACTAM 3.375 GM in 0.9 % SODIUM CHLORIDE 50 ML IV ×2 (01:06→09:19)
[2024-01-23 04:58] LABS: Basophils Absolute Auto 0.1 10^3/uL (0.0-0.1); Basophils Percent Auto 0.3 % (0.2-2.0); Eosinophils Absolute Auto 0.5 10^3/uL (0.0-0.7); Eosinophils Percent Auto 3.1 % (0.9-7.0); Hemoglobin 10.6 g/dL (14.0-18.0); Immature Granulocytes Abs Auto 0.13 10^3/uL (0.00-0.03); Immature Granulocytes Pct Auto 0.8 % (0.0-0.5); Lymphocytes Percent Auto 12.8 % (20.5-60.0); Mean Corpuscular HGB Conc 32.1 g/dL (29.9-35.2); Mean Corpuscular Hemoglobin 26.5 pg (25.9-34.0); Mean Corpuscular Volume 82.5 fL (80.0-94.0); Mean Platelet Volume 10.2 fL (9.5-13.5); Monocytes Percent Auto 6.3 % (1.7-12.0); Neutrophils Absolute Auto 12.1 10^3/uL (1.4-6.5); Neutrophils Percent Auto 76.7 % (43.0-75.0); Platelet Count 356 10^3/uL (150-450); White Blood Count 15.8 10^3/uL (4.0-11.0)
[2024-01-23 05:14] LABS: Magnesium 1.9 mg/dL (1.8-2.4)
[2024-01-23 05:17] LABS: Estimated Average Glucose 275 mg/dL; Glycohemoglobin A1C 11.2 % (4.5-6.2)
[2024-01-23 05:25] LABS: INR 3.68; Prothrombin Time 36.2 sec (9.0-11.6)
[2024-01-23 05:40] LABS: Anion Gap 6.6; Carbon Dioxide 30.8 mmol/L (21.0-32.0); Chloride 97 mmol/L (98-107); Potassium 3.4 mmol/L (3.5-5.1); Sodium 131 mmol/L (136-145)
[2024-01-23] MEDS: BUMETANIDE 1 MG TABLET 2 MG PO (05:40)
[2024-01-23] MEDS: LEVOTHYROXINE SODIUM 25 MCG TABLET 50 MCG PO (05:40)
[2024-01-23] MEDS: POTASSIUM CHLORIDE 10 MEQ ER TABLET 30 MEQ PO (05:40)
[2024-01-23 05:41] LABS: Alanine Aminotransferase 29 U/L (16-63); Albumin Globulin Ratio 0.3; Albumin Level 1.5 g/dL (3.4-5.0); Alkaline Phosphatase 154 U/L (46-116); Aspartate Amino Transferase 35 U/L (15-37); BUN Creatinine Ratio 43.7; Bilirubin Total 0.5 mg/dL (0.2-1.0); Calcium 8.5 mg/dL (8.5-10.1); Estimated GFR (African America 43 (>=60); Estimated GFR (Non-African Ame 35 (>=60); Globulin 5.9 g/dL; Glucose 82 mg/dL (74-106); Total Protein 7.4 g/dL (6.4-8.2)
[2024-01-23] MEDS: CARVEDILOL 25 MG TABLET PO (09:16)
[2024-01-23] MEDS: GABAPENTIN 400 MG CAPSULE PO (09:16)
[2024-01-23] MEDS: ISOSORBIDE DINITRATE 20 MG TABLET PO (09:16)
[2024-01-23] MEDS: JUVEN PACKET 1 PACKET PO (09:16)
[2024-01-23] MEDS: ATORVASTATIN CALCIUM 40 MG TABLET 80 MG PO (09:16)
[2024-01-23] MEDS: PROSTAT 15 GM PROTEIN/100 CAL 30 ML LIQUID PACKET PO (09:16)
[2024-01-23] MEDS: METOLAZONE 2.5 MG TABLET PO (09:18)
[2024-01-23] MEDS: ASPIRIN 81 MG TABLET.DR PO (09:19)
[2024-01-23] MEDS: DIGOXIN 125 MCG TABLET PO (09:19)
[2024-01-23] MEDS: INSULIN DETEMIR 300 UNIT/3 ML INSULN.PEN 22 UNIT SQ (09:20)
[2024-01-23] MEDS: COLLAGENASE CLOSTRIDIUM HIST. 250 UNITS/GM 30 GRAM TUBE 1 APPLIC TOPICAL (09:20)
[2024-01-23] MEDS: HYDROCODONE/ACET 5-325 MG TABLET 1 TAB PO (09:28)
[2024-01-23] MEDS: LINEZOLID IN DEXTROSE 5% 600 MG/300 ML PIGGYBACK 300 MG IV (10:34)
--- NOTE | 2024-01-23 10:55 | CM.NOTE ---
Rounds made with Dr. Saldana. Plan to discharge to [facility] today. Mr. Kauffman in agreement.
[2024-01-23 10:56] LABS: Glucometer 210 mg/dL (74-106)
[2024-01-23] MEDS: SODIUM CHLORIDE 0.9% IV (11:41)
[2024-01-23] MEDS: AMIKACIN SULFATE IV (11:41)
[2024-01-23] MEDS: INSULIN ASPART 300 UNIT/3 ML PEN SUBQ (11:41)
[2024-01-23 11:42] LABS: A. calcoaceticus-baumannii Cpx NOT DETECTED (NOT DETECTE); Bacteroides fragilis NOT DETECTED (NOT DETECTE); Candida albicans NOT DETECTED (NOT DETECTE); Candida auris NOT DETECTED (NOT DETECTE); Candida glabrata NOT DETECTED (NOT DETECTE); Candida krusei NOT DETECTED (NOT DETECTE); Candida parapsilosis NOT DETECTED (NOT DETECTE); Candida tropicalis NOT DETECTED (NOT DETECTE); Cryptococcus neoformans/gattii NOT DETECTED (NOT DETECTE); Enterobacter cloacae complex NOT DETECTED (NOT DETECTE); Enterobacterales NOT DETECTED (NOT DETECTE); Enterococcus faecalis NOT DETECTED (NOT DETECTE); Enterococcus faecium NOT DETECTED (NOT DETECTE); Haemophilus influenzae NOT DETECTED (NOT DETECTE); Klebsiella aerogenes NOT DETECTED (NOT DETECTE); Klebsiella pneumoniae group NOT DETECTED (NOT DETECTE); Listeria monocytogenes NOT DETECTED (NOT DETECTE); Neisseria meningitidis NOT DETECTED (NOT DETECTE); Proteus spp. NOT DETECTED (NOT DETECTE); Pseudomonas aeruginosa NOT DETECTED (NOT DETECTE); Salmonella spp. NOT DETECTED (NOT DETECTE); Serratia marcescens NOT DETECTED (NOT DETECTE); Staphylococcus epidermidis NOT DETECTED (NOT DETECTE); Staphylococcus lugdunensis NOT DETECTED (NOT DETECTE); Staphylococcus spp. NOT DETECTED (NOT DETECTE); Stenotrophomonas maltophilia NOT DETECTED (NOT DETECTE); Streptococcus agalactiae NOT DETECTED (NOT DETECTE); Streptococcus pneumoniae NOT DETECTED (NOT DETECTE); Streptococcus pyogenes NOT DETECTED (NOT DETECTE); Streptococcus spp. NOT DETECTED (NOT DETECTE)
--- NOTE | 2024-01-23 11:45 | PT.DAILY ---
Physical Therapy Daily Note PT Daily Note/Assess Start: 01/17/24 09:31 Freq: Status: Active Protocol: Document 01/23/24 11:41 AGATA (Rec: 01/23/24 11:45 AGATA [id number]) Physical Therapy Daily Note/Assessment Time In/Time Out Time In 11:25 Time Out 11:38 Pain In Pain N/A Pain Out Pain N/A Subjective Subjective Supine upon arrival. Agrees to PT. Planned dc to SNF sometime today. Therapeutic Activity Time Therapeutic Activity Minutes (minutes) 8 Therapeutic Activity Units 1 Therapeutic Activity Treatment Bed Mobility Ability Moderate Assist Chair Transfer Ability Moderate Assist,2 Person Assist Therapeutic Activity Comments Supine>sit with ModA to advance upper body to EOB - increased time to move his feet to EOB but does not require assistance. Pt sits EOB while lab takes blood draw , he sits 5 min with L Arm supporting him due to L lateral lean. Pt then sit> stand to RW ModA+2 and amb 2' to BS chair unable to maintain NWB L LE. Pt pivots with ModA +2 and is lowered to chair ModA+2 due to lack of control with descend. Pt remains in BS chair with call light in reach and needs met. Total Physical Therapy Time Total Therapy Minutes 8 Total Physical Therapy Units 1 Summary Daily Note Summary Slight improvement with transfer training. Conts to lack ability to maintain NWB L LE even with ModA+2 and many vc for this. Will benefit from SNF to regain strength.
--- NOTE | 2024-01-23 12:05 | P.DS_ITS ---
<Statement entered by Eliud Saldana MD - 01/23/24 19:06> This documentation has been reviewed and approved. Patient was seen and evaluated this morning. Looks much improved from previous 2 days. Kidney function is still elevated so we will continue to hold diuretics for now. This may followed up as an outpatient more as an as-needed basis understanding does have severe reduced ejection fraction on his echo. But currently is very dry. DS: Providers Provider Date of admission: 01/15/24 20:02 Primary care physician: VINNIE STEWART Consults: 01/15/24 19:28 Consult to Podiatry Routine Consulting Provider: Philip Van Reason for consultation: bilat chronic feet/leg wounds Has provider been notified: No Consult to Wound Care Routine Consulting Provider: Salo Asencio Reason for consultation: bilateral chronic leg/feet ulcers Has provider been notified: No 01/16/24 07:49 Occupational Therapy Eval and Treat Routine Reason for consultation: Gen Weakness Has provider been notified: No Physical Therapy Eval and Treat Routine Reason for consultation: Gen weakness Has provider been notified: No 01/18/24 08:52 Consult to Dietitian Routine Reason For Exam: chronic wounds Reason for consultation: chronic wounds Has provider been notified: No 01/18/24 08:56 Occupational Therapy Eval and Treat Routine Reason for consultation: wound vac Has provider been notified: No Physical Therapy Eval and Treat Routine Reason for consultation: wound vac Has provider been notified: No 01/22/24 10:01 Physical Therapy Eval and Treat Routine Reason for consultation: weakness, painful ambulation 01/22/24 10:02 Occupational Therapy Eval and Treat Routine Reason for consultation: weakness 01/22/24 12:41 Consult to Podiatry Routine Consulting Provider: Philip Van Reason for consultation: Re-consult for post-op follow up. Pt is still in hospital. Discharging clinician: Anna Guerrero DS: Diagnosis Discharge Diagnosis (1) Sepsis: Qualifiers: Acute respiratory failure type: with hypoxia Sepsis acute organ dysfunction status: with acute organ dysfunction Sepsis type: sepsis due to unspecified organism Severe sepsis acute organ dysfunction type: acute respiratory failure Severe sepsis shock status: without septic shock Qualified Code(s): A41.9 - Sepsis, unspecified organism; R65.20 - Severe sepsis without septic shock; J96.01 - Acute respiratory failure with hypoxia (2) Cellulitis and abscess of lower extremity: (3) Bacteremia: (4) Acute respiratory failure: (5) Hypokalemia: (6) Dehydration with hyponatremia: (7) Chronic kidney disease, stage 3a: (8) Chronic HFrEF (heart failure with reduced ejection fraction): (9) Paroxysmal atrial fibrillation: (10) Anemia in chronic kidney disease: (11) Benign essential hypertension: (12) COPD (chronic obstructive pulmonary disease): Qualifiers: COPD type: chronic bronchitis Chronic bronchitis type: unspecified Qualified Code(s): J42 - Unspecified chronic bronchitis (13) Hypothyroid: (14) Type 2 diabetes mellitus with hyperglycemia: Qualifiers: Diabetes mellitus superintendent terminal insulin use: without superintendent terminal use Qualified Code(s): E11.65 - Type 2 diabetes mellitus with hyperglycemia (15) HLD (hyperlipidemia): DS: Summary Hospital Course Hospital Course: The patient was admitted with sepsis and nonhealing diabetic wound of the bilateral feet (worse on the left foot), hypokalemia, and dehydration with hyponatremia. He was treated with IV fluids, and broad-spectrum antibiotics with Zosyn and vancomycin. He was seen in consult by Dr Van, senior security engineer, and an I&D was performed on the lateral left foot on 01/17/2024. Blood and wound cultures obtained in the ED prior to admission began to grow out multiple pathogens. The blood only grew out MSSA sensitive to vancomycin. His wounds grew out E. hormaech, Staph aureus, E faecalis, and Proteus species. The patient was briefly switched to IV Levaquin as all pathogen showed sensitivity to Levaquin, but his condition began to worsen and this was discontinued. He was then put back on Zosyn with linezolid and eventually amikacin was added as well. His condition slowly improved. He was followed by podiatry throughout his stay and an IntraOp wound culture was pending at the time of discharge. A wound VAC will be placed after discharge at a local SNF facility. He was seen in consult by the wound care team due to his multiple nonhealing diabetic wounds of his upper and lower extremities. Their recommendations for wound care were followed and these recommendations have been provided to the SNF at discharge. He was briefly hypoxic on admission but this quickly resolved and did not recur. Acute hypokalemia was treated with IV and PO KCL supplementation and had r esolved at the time of discharge. His dehydration and hyponatremia resolved with IVFs and did not recur. In addition the patient experienced acute on chronic renal dysfunction despite IV fluid administration. His home Bumex was held and his renal function began to improve a little. His renal function is not yet back to baseline CKD 3B but is improving. There was no evidence of hypervolemia at the time of discharge and so we continued to hold his Bumex. The care home is to obtain daily weights and to monitor for fluid overload closely. We recommend resumption of Bumex if he begins to retain fluid as the patient has a known HFrEF history with an LVEF of 10 to 15%. His home Farxiga was held on admission d/t his infections and sepsis. He was treated with SSI insulin but his BS remained poorly controlled and Levemir was added and increased until his BS control improved. Farxiga was resumed at discharge, but the SNF should continue to monitor and consider adding Levemir coverage if indicated. His INR was labile and became supratherapeutic prior to discharge, likely d/t concurrent antibiotic administration. His warfarin was held for 2 days prior to discharge and then was resumed at a lower dose at the time of discharge. We recommend INRs be obtained daily x 1 week, then per facility procotol. A PICC line was placed prior to discharge to allow for prolonged IV antibiotic administration. The pt tolerated this well. He was discharged on IVPB Rocephin and linezolid and IM amikacin. Pharmacy should monitor his amikacin levels q 72 hrs. The Linezolid and amikacin will be continued for 14 more days, and the Rocephin for 7 more days. He should follow up with Dr Van in 1-2 weeks. The wound vac should remain in place per Dr Van's orders. Time Spent with Patient Time attestation: Total time spent providing and/or coordinating discharge services: greater than 90 min Exam Constitutional Vital Signs, click to edit/add: Last Vital Signs Temp 97.7 F 01/23/24 09:00 Pulse 85 01/23/24 11:55 Resp 18 01/23/24 09:16 BP 122/74 01/23/24 09:00 Pulse Ox 96 01/23/24 10:35 O2 Del Method Room Air 01/23/24 10:35 O2 Flow Rate 1 01/19/24 08:00 Common normals: no apparent distress, oriented x3 and alert Orientation/consciousness: Yes awake HENMT Common normals: normocephalic, head/scalp atraumatic and hearing grossly normal bilaterally Head and scalp: normocephalic and atraumatic Eye Common normals: PERRL, EOMs intact bilaterally, conjunctivae normal and no scleral icterus General eye: normal appearance of both eyes Conjunctiva: conjunctiva(e) normal Neck & C-Spine Common normals: full ROM, supple and no JVD Chest Common normals: inspection of chest normal Chest: symmetrical chest wall rise Respiratory Common normals: normal respiratory effort and no use of accessory muscles Effort & inspection: able to speak in complete sentences Auscultation: wheezes (Faint EE scattered throughout) Cardio Common normals: regular rate, regular rhythm, S1 normal heart sound, S2 normal heart sound and peripheral pulses 2+ throughout Rate: regular rate Rhythm: regular rhythm Heart sounds: S1 normal, S2 normal and murmur (HSM 2/6) GI Common normals: Normal to inspection, nondistended, normoactive bowel sounds present, soft to palpation, non-tender and no hepatosplenomegaly Bladder/kidney exam: bladder normal to palpation Extremity Common normals: normal to inspection and no calf tenderness General: no clubbing, no cyanosis and no edema Other: BLE, BUE non-healing DM2 wounds scattered throughout. R index wound w/ minimal purulent drainage - culture ordered. All BLE wounds w/ dressings in place, D&I Neuro [place] Coma Scale: GCS not evaluated Common normals: oriented x3, CN's II-XII intact bilaterally, moves all extremities, no focal motor deficits and no sensory deficits noted Sensorium/orientation: awake and alert Psych Common normals: mental status grossly normal DS: Data Data Completed and Pending Labs on day of discharge: Labs from last 24 hours 01/23/24 01/23/24 01/22/24 10:55 03:20 20:53 WBC 15.8 H RBC 4.00 L Hgb 10.6 L Hct 33.0 L MCV 82.5 MCH 26.5 MCHC 32.1 RDW 16.0 H Plt Count 356 MPV 10.2 Neut % (Auto) 76.7 H Lymph % (Auto) 12.8 L [place] % (Auto) 6.3 Eos % (Auto) 3.1 Baso % (Auto) 0.3 Neut # (Auto) 12.1 H Lymph # (Auto) 2.0 [place] # (Auto) 1.0 H Eos # (Auto) 0.5 Baso # (Auto) 0.1 Abs Immat Gran (auto) 0.13 H Imm/Tot Granulo (auto) 0.8 H PT 36.2 H INR 3.68 Sodium 131 L Potassium 3.4 L Chloride 97 L Carbon Dioxide 30.8 Anion Gap 6.6 BUN 83.0 H* Creatinine 1.90 H Est GFR ( Amer) 43 L Est GFR (Non-Af Amer) 35 L BUN/Creatinine Ratio 43.7 Glucose 82 Estimat Average Glucose 275 Hemoglobin A1c 11.2 H Calcium 8.5 Magnesium 1.9 Total Bilirubin 0.5 AST 35 ALT 29 Alkaline Phosphatase 154 H Total Protein 7.4 Albumin 1.5 L Globulin 5.9 Albumin/Globulin Ratio 0.3 C. difficile Toxin PCR POC Glucose 210 H 331 H 01/22/24 01/22/24 01/22/24 16:19 11:53 02:08 WBC RBC Hgb Hct MCV MCH MCHC RDW Plt Count MPV Neut % (Auto) Lymph % (Auto) [place] % (Auto) Eos % (Auto) Baso % (Auto) Neut # (Auto) Lymph # (Auto) [place] # (Auto) Eos # (Auto) Baso # (Auto) Abs Immat Gran (auto) Imm/Tot Granulo (auto) PT 43.1 H* INR 4.42 H* Sodium Potassium Chloride Carbon Dioxide Anion Gap BUN Creatinine Est GFR ( Amer) Est GFR (Non-Af Amer) BUN/Creatinine Ratio Glucose Estimat Average Glucose Hemoglobin A1c Calcium Magnesium Total Bilirubin AST ALT Alkaline Phosphatase Total Protein Albumin Globulin Albumin/Globulin Ratio C. difficile Toxin PCR Negative POC Glucose 281 H Preliminary micro results at discharge 01/22/24 09:50 Wound Culture - Preliminary Finger Right Index 01/17/24 14:45 - Preliminary Foot Left 01/17/24 14:45 - Preliminary Foot Left Discharge Plan Discharge Disposition: Xfer SNF Condition: Serious Discharge Medications: New ceftriaxone 1 gram recon soln 1 g IV DAILY 7 Days linezolid in dextrose 5% [Zyvox] 600 mg/300 mL piggyback 600 mg IV Q12H 7 Days warfarin 2.5 mg tablet 2.5 mg PO DAILY Qty: 30 0RF amikacin 500 mg/2 mL solution 500 mg IM Q24H 14 Days Qty: 28 0RF Santyl 250 unit/gram ointment 1 applic topical DAILY Qty: 90 0RF Continued atorvastatin 80 mg tablet 80 mg PO QPM carvedilol 25 mg tablet 25 mg PO Q12H dapagliflozin propanediol [Farxiga] 10 mg tablet 10 mg PO DAILY Rx Instructions: KATHE RECINOS AT [facility] - PATIENT IS SUPPOSED TO BE TAKING THIS OF NOV 2023 aspirin [Adult Low Dose Aspirin] 81 mg tablet,delayed release (DR/EC) 81 mg PO DAILY hydrocodone-acetaminophen 5-325 mg tablet 1 tab PO Q8H PRN (Reason: pain, moderate) gabapentin 400 mg capsule 400 mg PO Q12H spironolactone 25 mg tablet 25 mg PO QAM levothyroxine 50 mcg tablet 50 mcg PO .ACB isosorbide dinitrate 20 mg tablet 20 mg PO BIDWM digoxin 125 mcg (0.125 mg) tablet 0.125 mg PO QDAY potassium chloride [Klor-Con M10] 10 mEq Tablet,Er Particles/Crystals 20 meq PO TID Qty: 90 11RF nitroglycerin 0.4 mg tablet, sublingual 0.4 mg sublingual Q5M PRN (Reason: chest pain) hydralazine 50 mg tablet 50 mg PO Q8H cyanocobalamin (vitamin B-12) 1,000 mcg tablet extended release 1,000 mcg PO DAILY amitriptyline 25 mg tablet 25 mg PO .QHS PRN (Reason: sleep) Rx Instructions: 25 mg orally nightly PRN metolazone 2.5 mg Tablet 2.5 mg PO DAILY Discontinued bumetanide 2 mg tablet 2 mg PO TID warfarin 5 mg tablet 5 mg PO .4 times a week Rx Instructions: sunday, , and sat warfarin 2.5 mg tablet 2.5 mg PO .3 times a week Patient Comments: DIRECTED BY CLINIC Rx Instructions: sunday, sunday and sunday Activity Restrictions/Additional Instructions: - Obtain daily weights. Call provider for orders if more than 3#/day or 5#/week weight gain. EF of 10-15% - Consider resuming Bumex 2mg BID if concerned for CHF exacerbation/fluid overload - Obtain CBC, CMP twice weekly x 2 weeks - Obtain INR daily x 1 week then per facility protocol - Obtain Amikacin level q72 hrs Wound care orders: - Apply santyl to all BLE and BUE wounds, cover with gauze (except L lateral foot wound w/ wound vac) - Wound vac to 125 mmHg continuous. Change dressing 2-3 x's per week Mid Level Developer/Washing Tub Operator Instructions: Discharge to [facility] skilled Forms: Portal Instructions Follow Up Appointments: Follow up with Dr Van in 1-2 weeks Discharge Date/Time: 01/23/24 12:20
--- NOTE | 2024-01-23 12:19 | SWNOTE1 ---
Pt is being discharged to [facility] today. ANDREW sent over finalized dc med rec to Moira and Tyesha at [facility]. HENS was completed Sunday (01/18/24). ANDREW let pt know he was discharging today. ANDREW updated packet and took to med/surge floor. ANDREW called and set up trips for 12:15-12:45. ANDREW notified nursing, pt's daughter, and [facility] of time.
[2024-01-23 13:03] LABS: Source BLOOD
== END 2024-01-23 12:20 | DRG 853 ==
LOC: ER 20:01 → MS 20:04
PROVIDERS: Family Medicine; Nurse Practitioner Acute Care; Podiatrist Foot & Ankle Surgery; Registered Nurse; Admitting Provider Family Medicine; Emergency Provider Emergency Medicine; PCP Family Medicine; Visit Provider Nurse Practitioner
DX: A41.9 Sepsis, unspecified organism (principal); E43 Unspecified severe protein-calorie malnutrition; J96.21 Acute and chronic respiratory failure with hypoxia; I50.22 Chronic systolic (congestive) heart failure; I13.0 Hypertensive heart and chronic kidney disease with heart failure and stage 1 through stage 4 chronic kidney disease, or unspecified chronic kidney disease; L97.129 Non-pressure chronic ulcer of left thigh with unspecified severity; L97.119 Non-pressure chronic ulcer of right thigh with unspecified severity; L97.829 Non-pressure chronic ulcer of other part of left lower leg with unspecified severity; L97.819 Non-pressure chronic ulcer of other part of right lower leg with unspecified severity; L97.429 Non-pressure chronic ulcer of left heel and midfoot with unspecified severity; L97.419 Non-pressure chronic ulcer of right heel and midfoot with unspecified severity; N17.9 Acute kidney failure, unspecified; E87.1 Hypo-osmolality and hyponatremia; L02.612 Cutaneous abscess of left foot; L03.116 Cellulitis of left lower limb; M86.172 Other acute osteomyelitis, left ankle and foot; E11.52 Type 2 diabetes mellitus with diabetic peripheral angiopathy with gangrene; I96 Gangrene, not elsewhere classified; E11.621 Type 2 diabetes mellitus with foot ulcer; R65.20 Severe sepsis without septic shock; E86.0 Dehydration; Z66 Do not resuscitate; N18.31 Chronic kidney disease, stage 3a; B96.89 Other specified bacterial agents as the cause of diseases classified elsewhere; B96.4 Proteus (mirabilis) (morganii) as the cause of diseases classified elsewhere; B95.2 Enterococcus as the cause of diseases classified elsewhere; B95.61 Methicillin susceptible Staphylococcus aureus infection as the cause of diseases classified elsewhere; R53.1 Weakness; R79.1 Abnormal coagulation profile; E11.42 Type 2 diabetes mellitus with diabetic polyneuropathy; E11.65 Type 2 diabetes mellitus with hyperglycemia; E11.22 Type 2 diabetes mellitus with diabetic chronic kidney disease; E78.5 Hyperlipidemia, unspecified; J44.89 Other specified chronic obstructive pulmonary disease; D50.9 Iron deficiency anemia, unspecified; E87.6 Hypokalemia; D63.1 Anemia in chronic kidney disease; Z87.01 Personal history of pneumonia (recurrent); I25.10 Atherosclerotic heart disease of native coronary artery without angina pectoris; I48.0 Paroxysmal atrial fibrillation; E03.9 Hypothyroidism, unspecified; R29.6 Repeated falls; Z89.422 Acquired absence of other left toe(s); Z79.82 Long term (current) use of aspirin; Z79.84 Long term (current) use of oral hypoglycemic drugs; Z79.890 Hormone replacement therapy; Z79.01 Long term (current) use of anticoagulants; Z88.8 Allergy status to other drugs, medicaments and biological substances; Z95.810 Presence of automatic (implantable) cardiac defibrillator; Z82.49 Family history of ischemic heart disease and other diseases of the circulatory system; Z87.891 Personal history of nicotine dependence; Z68.29 Body mass index [BMI] 29.0-29.9, adult
CPT/HCPCS: 0202U; 36415; 36569; 36592; 71045; 73560; 73620; 73700; 80048; 80053; 80150; 80162; 80202; 81001; 82800; 82948; 83036; 83605; 83735; 83880; 84145; 84484; 85007; 85025; 85027; 85610; 87040; 87070; 87086; 87102; 87116; 87150; 87186; 87205; 87206; 87493; 87804; 87811; 88304; 88311; 93005; 94761; 96361; 96365; 96366; 96367; 96368; 97110; 97162; 97165; 97530; 97535; 99285; 99999; C1887; G0328; J0278; J2020; J3370; J3480

== ENCOUNTER 2024-01-18 01:06 | Outpatient (RCR) | payer MEDICARE, SELFPAY | END 2024-02-15 13:04 | disposition home or self-care (01) | LOC: MM 01:06 | PROVIDERS: PCP Family Medicine; Visit Provider Internal Medicine | DX: Z51.81 Encounter for therapeutic drug level monitoring (principal); Z79.01 Long term (current) use of anticoagulants; I48.91 Unspecified atrial fibrillation ==

== ENCOUNTER 2024-01-25 01:39 | Outpatient (REF) | payer MEDICARE, SELFPAY ==
--- OUTSIDE RECORDS SUMMARY | 2024-01-25 01:44 | XMS_ITS | CCD ---
Author Name Unknown Address [address] [place] [address] Organization [facility] Care Team Providers Care Museum Exhibit Technician Name Role Phone Vinnie Stewart Primary Care Provider Unavailab Valentin Gomez (WND) Attending Provider Unavaila Vinnie Lemon Primary Care Provider [phone] Nicolette Manzano Attending Provider Ivon Kat Attending Provider [phone] [place] Procedure Practitioner Unavailab VINNIE Nash Primary Care Unavailable LOWELL CRAFT Referring Unavailable ANNABELLE BOYD Surgeon Unavailable CECILE MAJOR Admitting Unavailable CECILE MAJOR Attending Unavailable [place] Procedure Practitioner Unavailab BALBIR Cardenas Surgeon Unavailable Vinnie Stewart Unavailable Vinnie Stewart Unavailable Brittnee Spain Unavailable Ruthie Guzman Unavailable Balbir Ba Unavailable Simba Kaufman Unavailable Gisselle Dickey Unavailable DO Vinnie Stewart Primary Care Provider CHARISSE Manzano Attending Provider DO Ethan Cummings II Attending Provider MD Simba Kaufman Referring Provider DO Vinnie Stewart Primary Care Provider DO Ethan Cummings II Attending Provider MD Simba Kaufman Referring Provider [phone] CHARISSE Manzano Attending Provider Miya DO Alejandro Jones Emergency Provider DO Yakov To Admit Provider [phone] DO Yakov To Attending Provider SHIRLEY, BRYCE Admitting Unavailable SHIRLEY, BRYCE Attending Unavailable SHIRLEY, BRYCE Consulting Unavailable STEWART, VINNIE Primary Care Unavailable FAWWAD, BROWN H Attending Unavailable FAWWAD, BROWN H Admitting Unavailable STEWART, VINNIE Primary Care Unavailable FAWWAD, BROWN H Admitting Unavailable FAWWAD, BROWN H Attending Unavailable STEWART, NESHANIC STATION Primary Care Unavailable SEPIDEH ., NIK Admitting Unavailable SEPIDEH ., NIK Attending Unavailable JACOBSON ., DR PROMISE Proctor Consulting Unavailable [facility] Primary Care Unavailable PAY ., DR TOM Consulting Unavailable SUSHIL STOUT Consulting Unavailable STU CONN Consulting Unavailable CAILIN, MASSIMO Consulting Unavailable MICKY PRUITT Consulting Unavailable SISTER, MURTAZA Consulting Unavailable SEPIDEH ., NIK Consulting Unavailable [facility] Primary Care Unavailable HOY ., DR SOTELO Consulting Unavailable HOY ., DR SOTELO Admitting Unavailable HOY ., DR SOTELO Attending Unavailable ZIEBER, DR BIANCA Sorto Consulting Unavailable SONIDO VAUGHN Consulting Unavailable AUSTIN, NOE Consulting Unavailable ALEK, AMJOVANY Consulting Unavailable ADRIEL VIRGEN Consulting Unavailable FAWWAD, BROWN H Attending Unavailable FAWWAD, BROWN H Admitting Unavailable STEWART, VINNIE Primary Care Unavailable FAWWAD, BROWN H Attending Unavailable FAWWAD, BROWN H Admitting Unavailable STEWART, VINNIE Primary Care Unavailable CAILIN, MASSIMO Consulting Unavailable CAILIN, MASSIMO Admitting Unavailable CAILINRONNIEA Attending Unavailable STEWART, VINNIE Primary Care Unavailable KODI MYERS Consulting Unavailable YEARTY KODI Admitting Unavailable YEARKODI GOLDBERG Attending Unavailable LEESBURG, NESHANIC STATION Primary Care Unavailable MISC, DR YEN Consulting Unavailable MISC, DR YEN Admitting Unavailable MISC, DR YEN Attending Unavailable STEWART, NESHANIC STATION Primary Care Unavailable JACSIMBA Consulting Unavailable JACTJUL Admitting Unavailable STEWART, VINNIE Primary Care Unavailable JAC, SIMBA Attending Unavailable JAC, SIMBA Admitting Unavailable JAC, SIMBA Attending [facility] Care Unavailable JAC, SIMBA Consulting Unavailable FAWWAD, BROWN H Attending Unavailable FAWWAD, BROWN H Admitting Unavailable [facility] Primary Care Unavailable FAWWAD, BROWN H Admitting Unavailable FAWWAD, BROWN H Attending Unavailable [facility] Primary Care Unavailable FAWWAD, BROWN H Attending Unavailable FAWWAD, BROWN H Admitting Unavailable STEWART, NESHANIC STATION Primary Care Unavailable YEARTY, KODI Admitting Unavailable YEARTY, KODI Attending Unavailable [facility] Primary Care Unavailable YEARTY, KODI Consulting Unavailable CAILIN, MASSIMO Admitting Unavailable CAILIN, MASSIMO Attending Unavailable TERRY, NESHANIC STATION Primary Care Unavailable CAILIN, MASSIMO Consulting Unavailable CANDELARIA SEGAL Admitting Unavailable EMA Olson, CANDELARIA Attending Unavailable JORGE BUCKNER Unavailable [facility] Primary Care Unavailable CANDELARIA SEGAL Consulting Unavailable FAWWAD, BROWN H Attending [facility]available [facility] Primary Care Unavailable FAWWAD, BROWN H Admitting Unavailable DR IMTIAZ DUVAL Consulting Unavailable FAWWAD, BROWN H Consulting Unavailable SOFÍA GASTON Consulting Unavailable MIRYAM MENDEZ Consulting Unavailable JOSE STRONG Consulting Unavailable ALLIE BERMUDEZ Consulting Unavailable FAWWAD, BROWN H Admitting Unavailable FAWWAD, BROWN H Attending Unavailable [facility] Primary Care Unavailable FAWWAD, BROWN H Attending Unavailable FAWWAD, BROWN H Admitting Unavailable [facility] Primary Care Unavailable FAWWAD, BROWN H Admitting Unavailable FAWWAD, BROWN H Attending [facility]available [facility] Primary Care Unavailable JORGE ARROYO Admitting Unavailable JORGE ARROYO Attending Unavailable VINNIE STEWART Primary Care Unavailable JORGE ARROYO Admitting Unavailable JORGE ARROYO Attending Unavailable TERRY, VINNIE Primary Care Unavailable JORGE ARROYO Admitting Unavailable JORGE ARROYO Attending Unavailable TERRY VINNIE Primary Care Unavailable JORGE ARROYO Admitting Unavailable JORGE ARROYO Attending [facility] Primary Care Unavailable JORGE ARROYO Admitting Unavailable JORGE ARROYO Attending Unavailable [facility] Primary Care Unavailable ZIMARIMAR, DR BIANCA Sorto Consulting Unavailable PAY ., DR TOM Admitting Unavailable PAY ., DR TOM Attending Unavailable TERRY, VINNIE Primary Care Unavailable PAY ., DR TOM Consulting Unavailable FAWWAD, BROWN H Admitting Unavailable FAWWAD, BROWN H Attending Unavailable STEWART, VINNIE Primary Care Unavailable WEST, DR BALBIR Thorpe Consulting Unavailable SADE, DR BIANCA Sorto Consulting Unavailable NADERENoreen, DR LOWELL Jones Consulting Unavailable EDSON PARKS Consulting Unavailable BRIANNA ., ANAMIKA Consulting Unavailable FAWWAD, BROWN H Consulting Unavailable HOY ., DR SOTELO Consulting Unavailable HOY ., DR SOTELO Admitting Unavailable MAYURY ., DR SOTELO Attending Unavailable [facility] VINNIE Primary Care Unavailable ZIEBER, DR BIANCA Sorto Consulting Unavailable SONIDO VAUGHN Consulting Unavailable WILEY ., MAYE TERAN Consulting Unavailable SISTER, MURTAZA Consulting Unavailable JULIA DOUGLAS Consulting Unavailable BLANCA SANTOS Consulting Unavailable SUSHIL STOUT Admitting Unavailable SUSHIL STOUT Attending Unavailable SUSHIL STOUT Consulting Unavailable STEWART, VINNIE Primary Care Unavailable FAWWAD, BROWN H Admitting Unavailable FAWWAD, BROWN H Attending Unavailable STEWART, VINNIE Primary Care Unavailable JOGRE ARROYO Admitting Unavailable JORGE ARROYO Attending Unavailable STEWART, VINNIE Primary Care Unavailable MapNicolette peoples Unavailable PROVIDER, [...] Attending Unavailable VINNIE STEWART Referring Unavailable VINNIE STEWART Primary Care Unavailable DO Vinnie Stewart Primary Care Provider CHARISSE Manzano Attending Provider [phone] Yakov To Admitting Unavailable Yakov To Attending Unavailable Vinnie Stewart Primary Care Unavailable Vinnie Stewart Primary Care Unavailable Nicolette Manzano Admitting Unavailable Nicolette Manzano Attending Unavailable Vinnie Stewart Primary Care Unavailable Yakov To Admitting Unavailable Yakov To Attending Unavailable Jorge Arroyo Admitting Unavailable Jorge Arroyo Attending Unavailable Unavailable Unavailable Unavailable Allergies Allergy Classification Reported Allergen(s) Allergy Type Date of Onset Reaction(s) Facility (11 sources) Angiotensin Converting Enzyme (Gabriela) Inhibitors; 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: [GABRIELA Inhibitors] Propensity to adverse reactions 2 Cough [facility] Repository (20 sources) Angiotensin Converting Enzyme (Gabriela) Inhibitors Propensity to adverse reactions cough [employer] Other Medications Current Medications Medication Drug Class(es) [...] 8 hrs for 30 day(s) Sep, Active [id number] 200 actuat albuterol 0.09 mg/actuat metered dose [...] Start: 03-02-2022 take 1 capsule by mo [facility] every eight hours Cephalexin 500 MG 1 [...] Start: 12-09-2021 take 1 capsule by mo [facility] every twelve hours Cephalexin 500 MG [...] DX E11.65 Apr, Active FreeStyle Lucas 2 [place] - (20 sources) FreeStyle Lucas 2 [place] - USE READER TO TEST BLOOD SUGAR DIRECTED DAILY for 365 Active FreeStyle Lucas 2 [place] - USE DIRECTED DAILY for 365 Active FreeStyle Lucas 2 [place] Sys tm - (20 sources) FreeStyle Lucas 2 [place] Systm - as directed SQ Daily Active FreeStyle Lucas 2 [place] Systm - as directed SQ Daily for [...] QID and prn for 84 days DX E1165 Active FreeStyle Lucas 2 Sensor Systm - [...] Subcutaneous daily for [facility] Aug, Active inject 50 [IU] by ross [...] 2020 7:46am take 2 tablets by mo [facility] every twenty-four hours predniSONE 50 mg oral tablet (20 sources) Start: 12-22-2022 take 1 tablet by [facility] every twenty-four hours predniSONE 50 MG 1 tablet Orally Once a day for 5 day(s) Dec, Active Start: 05-30-2022 take 2 tablets by mo ut every twenty-four hours predniSONE 20 MG 2 [...] sources) Anticholinergic Start: 04-10-2022 End: 12-04-2022 Ipratropium [place] Discontinued SOLUTION April 09, 2022 11:00pm December [...] 2019 11:00pm December 04, 2019 12:07pm sennosides, longterm 8.6 mg oral tablet (6 sources) Start: [...] Angina pectoris; 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] Onset: [...] hypertension] Onset: 1 Resolved: 2 Chronic Gangrene (5 sources) Gangrene of left foot; [...] sources) Long-term current use of insulin; 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: [[facility] (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] Episodic Other aftercare (9 sources) 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; 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] Onset: 1 Resolved: 2 Episodic Other aftercare (1 source) terminal press operator (current) use of aspirin; 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: [[facility] CURRENT USE OF ASPIRIN] Onset: 3 Episodic Other aftercare (1 source) Other half-way (current) drug therapy; 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: [OTH [facility] CURRENT DRUG THERAPY] Onset: 3 Episodic Other aftercare (5 sources) Encounter for therapeutic drug level monitoring; 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: [ENC THERAPEUTC DRUG LEVL MONITORING] Onset: 3 Episodic Other aftercare (1 source) [facility] (current) use of anticoagulants; 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: [FISHING VESSEL OPERATOR CURRNT USE ANTICOAGULANTS] Onset: 3 Episodic Other [...] mass index (BMI) 28.0-28.9, adult Episodic Other skin disorders (3 sources) Ulcer; [...] with autonomic dysfunction] Diabetes mellitus without complication (7 sources) Hyperglycemia; 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: [Hyperglycemia, unspecified] Onset: 02-13-2023 02-13-2023 Episodic Fluid and electrolyte disorders (20 sources) Respiratory [...] source) Hypoxemia; 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: [HYPOXEMIA] Onset: 05-18-2022 Episodic Other [...] URINALYSISon 12-18-2023 Bilirubin Ql (U) Negative Normal [facility] Comment on above: Performed By: #### U A #### [facility] ([id number]) [address] [place] [address] 08736 BLOOD/HGB Negative Normal [facility] Comment on above: Performed By: #### U A #### [facility] ([id number]) [address] [place] [address] 22417 Color (U) YELLOW Normal YELLOW [facility] Comment on above: Performed By: #### U A #### [facility] ([id number]) [address] [place] [address] 23214 Glucose Ql (U) >1000 Abnormal NEG [facility] Comment on above: Performed By: #### U A #### [facility] ([id number]) [address] [place] [address] 74953 Ketones Ql (U) Negative Normal [facility] Comment on above: Performed By: #### U A #### [facility] ([id number]) [address] [place] [address] 99229 Leukocyte esterase Test strip Ql (U) Negative Normal NEG [facility] Comment on above: Result Comment: HIGH CONCENTRATIONS OF GLUCOSE MAY DECREASE THE REACTIVITY OF THE DIPSTICK LEUKOCYTE TEST PAD. Performed By: #### U A #### [facility] ([id number]) [address] [place] [address] 15443 Nitrite Ql (U) Negative Normal NEG [facility] Comment on above: Performed By: #### U A #### [facility] ([id number]) [address] [place] [address] 98969 pH (U) 7.0 [pH] Normal 5.0-8.5 [facility] Comment on above: Performed By: #### U A #### [facility] ([id number]) [address] [place] [address] 51856 Protein Ql (U) Negative Normal NEG [facility] Comment on above: Performed By: #### U A #### [facility] ([id number]) [address] [place] [address] 31990 Specific gravity (U) [Rel density] 1.010 Normal 1.003-1.03 5 [facility] Comment on above: Performed By: #### U A #### [facility] ([id number]) [address] [place] [address] 16939 TURBIDITY CLEAR Normal CLEAR [facility] Comment on above: Performed By: #### U A #### [facility] ([id number]) [address] [place] [address] 55017 Urinalysis dipstick W Reflex Microscopic panel (U) URINE RECEIVED WITHOUT PRESERVATIVE-DELAYS IN TRANSPORT MAY AFFECT RESULTS.INTERPRET WITH CAUTION AND CLINICAL CORRELATION IS RECOMMENDED. Normal [facility] Comment on above: Performed By: #### U A #### [facility] ([id number]) [address] [place] [address] 67533 Urobilinogen Qn (U) 0.2 {Ashley'U}/dL Normal <1.1 [facility] Comment on above: Performed By: #### U A #### [facility] ([id number]) [address] [place] [address] URINE CULTUREon 12-18-2023 Bacteria identified Cx Nom (U) CULTURE RESULTS NO GROWTH AT <1000 CFU/mL Normal [facility] Comment on above: Performed By: #### 6 30-4 #### [facility] ([id number]) [address] [place] [address] Glucose - FINGER STICKon Glucose [Mass/Vol] 529 mg/dL [employer] Other Office Visiton 09-21-2023 Follow-up visit [id number] Adwoa Porter 1955 [facility] Provider Department Center 09/21/2023 SUSHIL CAO RICHY De [place] Family History Problem Relation Age of Onset Diabetes Mother Hypertension Mother Coronary artery disease Mother Family Status - Relation Status Age at Mother Level of Service:90256 [place] OFFICE/OUTPATIENT ESTABLISHED MOD MDM 30-39 MIN Reason for Visit and Comments: Follow-up [078531] Congestive Heart Failure [127] Normal [facility] Glucose - FINGER STICKon Glucose [Mass/Vol] 91 mg/dL [employer] Other Office Visiton 08-23-2023 Follow-up visit [id number] Adwoa Porter 1955 [facility] Provider Department Center 08/23/2023 MASSIMO DYE RICHY [place] Family History Problem Relation Age of Onset Diabetes Mother Hypertension Mother Coronary artery disease Mother Family Status - Relation Status Age at Mother Level of Service:64716 [place] OFFICE/OUTPATIENT ESTABLISHED HIGH MDM 40-54 MIN Reason for Visit and Comments: Wheezing [857049] Hospital Follow-up [832] Normal [facility] Office Visiton 08-15-2023 Follow-up visit [id number] Adwoa Porter 1955 [facility] Provider Department Center 08/15/2023 BRYCE TRAORE RICHY [place] Family History Problem Relation Age of Onset Diabetes Mother Hypertension Mother Coronary artery disease Mother Family Status - Relation Status Age at Mother Level of Service:83589 [place] OFFICE/OUTPATIENT ESTABLISHED MOD MDM 30-39 MIN [facility] 36on 08-13-2023 36 Pt informed [facility] A1C HEMOGLOBINon 06-29-2023 HbA1c (Bld) [Mass fraction] 7.9 % One Hour Translation [facility] [employer] Other Glucose - FINGER STICKon Glucose [Mass/Vol] 382 mg/dL [facility] [employer] Other HbA1c (Bld) [Mass fraction]o n 06-29-2023 A1C HEMOGLOBIN [facility] [employer] Other 36on 06-20-2023 36 His potassium on 05/21 was 2.7. He needs to come to the hospital to receive IV potassium and further treatment as needed [facility] Telephoneon 06-20-2023 Telephone [id number] Adwoa Porter 1955 M Date Provider Department Center 06/20/2023 SUSHIL CAO RICHY [place] Family History Problem Relation Age of Onset Diabetes Mother Hypertension Mother Coronary artery disease Mother Family Status - Relation Status Age at Mother [facility] 36on 06-19-2023 36 TB lab called to re port a potassium level of 2.7 today. Melissa tried to call patient to remind him of his apt tomorrow but he did not answer and had no voicemail. [facility] 36on 06-18-2023 36 TB lab called to re port a critical BNP of 13,277. FYI. [facility] Telephoneon 06-18-2023 Telephone [id number] Adwoa Porter 1955 M Date Provider Department Center 06/18/2023 SUSHIL CAO RICHY [place] Family History Problem Relation Age of Onset Diabetes Mother Hypertension Mother Coronary artery disease Mother Family Status - Relation Status Age at Mother [facility] Office Visiton 06-05-2023 Follow-up visit [id number] Adwoa Porter 1955 M Date Provider Department Center 06/05/2023 SUSHIL CAO [facility] Family History Problem Relation Age of Onset Diabetes Mother Hypertension Mother Coronary artery disease Mother Family Status - Relation Status Age at Mother Level of Service:48932 [place] OFFICE/OUTPATIENT ESTABLISHED MOD MDM 30-39 MIN Reason for Visit and Comments: Follow-up [788178] Normal [facility] PTH INTACTon 04-12-2023 PTH, Intact 50 pg/mL Normal 15-65 [facility] Comment on above: Performed By: #### P THINT ####[facility] [address] [place] [address]Dr. Emelina Navarro HEMOGRAM AND PLATELon 2022 Hematocrit (Bld) [Volume fraction] 42.7 % Normal 42.0-54.0 [facility] Comment on above: Performed By: #### H H ####[facility] [address] [place], [place] [address]Dr. Emelina Navarro Hemoglobin (Bld) [Mass/Vol] 14.3 g/dL Normal 14.0-18.0 [facility] Comment on above: Performed By: #### H H ####[facility] [address] [place], [place] [address]Dr. Emelina Navarro MCH (RBC) [Entitic mass] 29.5 pg Normal 25.9-34.0 [facility] Comment on above: Performed By: #### H H ####[facility] [address] [place], [place] [address]Dr. Emelina Navarro MCHC (RBC) [Mass/Vol] 33.5 g/dL Normal 29.9-35.2 [facility] Comment on above: Performed By: #### H H ####[facility] [address] [place], [place] [address]Dr. Emelina Navarro MCV (RBC) [Entitic vol] 88.2 fL Normal 80.0-94.0 [facility] Comment on above: Performed By: #### H H ####[facility] [address] [place] [id number]. Emelina Navarro PLT 278 103/ul Normal 150-450 [facility] Comment on above: Performed By: #### H H ####[facility] [address] [place] [id number]. Emelina Navarro RBC 4.84 106/ul Normal 4.70-6.10 [facility] Comment on above: Performed By: #### H H ####[facility] [address] [place] [id number]. Emelina Navarro WBC 12.9 103/ul Critically high 4.0-11.0 [facility] Comment on above: Performed By: #### H H ####[facility] [address] [place] [address]Dr. Emelina Navarro MAGNESIUMon 04-11-2023 Magnesium [Mass/Vol] 2.2 mg/dL Normal 1.8-2.4 [facility] Comment on above: Performed By: #### U JOLIE, RENAL, MG ####[facility] [address] [place] [address]Dr. Emelina Navarro RENAL FUNCTION PANELon 04-11 Albumin [Mass/Vol] 3.6 g/dL Normal 3.4-5.0 [facility] Comment on above: Performed By: #### U JOLIE, RENAL, MG ####[facility] [address] [place] [address]Dr. Emelina Navarro Calcium [Mass/Vol] 9.5 mg/dL Normal 8.5-10.1 [facility] Comment on above: Performed By: #### U JOLIE, RENAL, MG ####[facility] [address] [place] [address]Dr. Emelina Navarro Chloride [Moles/Vol] 95 mmol/L Critically low 98-107 [facility] Comment on above: Performed By: #### U JOLIE, RENAL, MG ####[facility] [address] [place] [address]Dr. Emelina Navarro CO2 [Moles/Vol] 36.4 mmol/L Critically high 21.0-32.0 [facility] Comment on above: Performed By: #### U JOLIE, RENAL, MG ####[facility] [address] [place] [address]Dr. Emelina Navarro Creatinine [Mass/Vol] 1.92 mg/dL Critically high 0.70-1.30 [facility] Comment on above: Performed By: #### U JOLIE, RENAL, MG ####[facility] [address] [place] [address]Dr. Emelina Navarro EGFR-AF ZIMBABWEAN 42 mL/min/1.73m2 Critically low >=60 [facility] Comment on above: Performed By: #### U JOLIE, RENAL, MG ####[facility] [address] [place], [place] [address]Dr. Emelina Navarro EGFR-NON AF ZIMBABWEAN 35 mL/min/1.73m2 Critically low >=60 [facility] Comment on above: Performed By: #### U JOLIE, RENAL, MG ####[facility] [address] [place], [place] [address]Dr. Emelina Navarro Glucose [Mass/Vol] 96 mg/dL Normal 74-106 [facility] Comment on above: Performed By: #### U JOLIE, RENAL, MG ####[facility] [address] [place], [place] [address]Dr. Emelina Navarro Phosphate [Mass/Vol] 4.0 mg/dL Normal 2.6-4.7 [facility] Comment on above: Performed By: #### U JOLIE, RENAL, MG ####[facility] [address] [place], [place] [address]Dr. Emelina Navarro Potassium [Moles/Vol] 3.1 mmol/L Critically low 3.5-5.1 [facility] Comment on above: Performed By: #### U JOLIE, RENAL, MG ####[facility] [address] [place], [place] [address]Dr. Emelina Navarro Sodium [Moles/Vol] 137 mmol/L Normal 136-145 [facility] Comment on above: Performed By: #### U JOLIE, RENAL, MG ####[facility] [address] [place] [address]Dr. Emelina Navarro Urea nitrogen [Mass/Vol] 31.0 mg/dL Critically high 7.0-18.0 [facility] Comment on above: Performed By: #### U JOLIE, RENAL, MG ####[facility] [address] [place] [address]Dr. Emelina Navarro UA RANDOM W/MICROSCOPICon BACTERIA NONE SEEN Normal NONE SEEN [facility] Comment on above: Performed By: #### U AMIC ####[facility] [address] [place], [place] [address]Dr. Emelina Navarro Bilirubin Ql (U) Negative Normal NEGATIVE [facility] Comment on above: Performed By: #### U AMIC ####[facility] [address] [place], [place] [address]Dr. Emelina Navarro CAST NONE SEEN Normal NONE SEEN [facility] Comment on above: Performed By: #### U AMIC ####[facility] [address] [place], [place] [address]Dr. Emelina Navarro Clarity (U) CLEAR Normal CLEAR [facility] Comment on above: Performed By: #### U AMIC ####[facility] [address] [place], [place] [address]Dr. Emelina aNvarro Color (U) LT. YELLOW Normal YELLOW [facility] Comment on above: Performed By: #### U AMIC ####[facility] [address] [place], [place] [address]Dr. Emelina Navarro Crystals LM Nom (Urine sed) NONE SEEN Normal NONE SEEN [facility] Comment on above: Performed By: #### U AMIC ####[facility] [address]xphgxtzhb[address] [place], [place] [address]Dr. Emelina Navarro Epithelial cells LM Ql (Urine sed) FEW Abnormal NONE SEEN /RARE [facility] Comment on above: Performed By: #### U AMIC ####[facility] Yqjtwwfgdi[address] [place], [place] [address]Dr. Emelina Navarro Glucose Ql (U) 500 mg/dl Abnormal NEGATIVE [facility] Comment on above: Performed By: #### U AMIC ####[facility] Zilsiswscd[address] [place] [address]Dr. Emelina Navarro Hemoglobin Ql (U) Negative Normal NEGATIVE [facility] Comment on above: Performed By: #### U AMIC ####[facility] Uvyiobxpym6275 [place] [address]Dr. Emelina Navarro Ketones Ql (U) Negative Normal NEGATIVE [facility] Comment on above: Performed By: #### U AMIC ####[facility] Zqthfkzxco[address] [place], [place] [address]Dr. Emelina Navarro LEUKOCYTES Negative Normal NEGATIVE [facility] Comment on above: Performed By: #### U AMIC ####[facility] Fgcktjlawe[address] [place], [place] [address]Dr. Emelina Navarro MUCOUS NONE SEEN Normal NONE SEEN [facility] Comment on above: Performed By: #### U AMIC ####[facility] Htyzmeolno[address] [place], [place] [address]Dr. Emelina Navarro Nitrite Ql (U) Negative Normal NEGATIVE [facility] Comment on above: Performed By: #### U AMIC ####[facility] Xnidlgbtek[address] [place], [place] [address]Dr. Emelina Navarro pH (U) 6.5 [pH] Normal 5-9 [facility] Comment on above: Performed By: #### U AMIC ####[facility] Poeyubllij84[address] [place], [place] [address]Dr. Emelina Ramon RBC NONE SEEN Abnormal 0-2 [facility] Comment on above: Performed By: #### U AMIC ####[facility] Mnxdqbgtjc94[address] [place], [place] [address]Dr. Emelina Navarro SPEC GRAVITY 1.005 Normal 1.005-<=1. 025 [facility] Comment on above: Performed By: #### U AMIC ####[facility] Bbvxykffpc[address] [place], [place] [address]Dr. Emelina Navarro UA PROTEIN Negative Normal NEGATIVE/ TRACE [facility] Comment on above: Performed By: #### U AMIC ####[facility] Laozglxgft8985 [place] [address]Dr. Emelina Navarro Urobilinogen Qn (U) 0.2 {Ashley'U}/dL Normal 0.2 - 1. 0 [facility] Comment on above: Performed By: #### U AMIC ####[facility] Guypiedyiw27[address] [place] [address]Dr. Emelina Navarro WBC NONE SEEN Normal NONE SEEN [facility] Comment on above: Performed By: #### U AMIC ####[facility] Ajpqjbotry0490 [place] [address]Dr. Emelina Navarro URIC ACID SERUMon 04-11-2023 Urate [Mass/Vol] 12.2 mg/dL Critically high 3.5-7.2 [facility] Comment on above: Performed By: #### U JOLIE, RENAL, MG ####[facility] Bmxldsdluz[address] [place], [place] [address]Dr. Emelina Navarro URINE T PROTEIN CREAT RATIOo n 04-11-2023 Protein (U) [Mass/Vol] 9.3 mg/dL Normal <=12.0 [facility] Comment on above: Performed By: #### U RTPCR ####[facility] Xolfmvzuzu[address] [place], [place] [address]Dr. Emelina Navarro UR PROT CREAT RAT 0.37 Normal [facility] Comment on above: Performed By: #### U RTPCR ####[facility] Udysgsqzlt48[address] [place], [place] [address]Dr. Emelina Navarro URINE CREAT 25.00 mg/dL Normal 20.00-300. 00 [facility] Comment on above: Performed By: #### U RTPCR ####[facility] Lgbqzoipfi55[address] [place], [place] [address]Dr. Emelina Navarro VITAMIN D 25 OHon 04-11-2023 VIT D 25-OH 51.8 ng/mL Normal [facility] Comment on above: Performed By: #### V ITAD ####[facility] Bhyubxclke68[address] [place], [place] [address]Dr. Emelina Navarro VIT D RANGES SEE BELOW Normal [facility] Comment on above: Result Comment: <20 ng/mL Vit D deficient 20 - <30 ng/mL Vit D insufficient 30 - 100 ng/mL Vit D sufficient >100 ng/mL Potential Toxicity Performed By: #### V ITAD ####[facility] Tfdttxxokg24[address] [place], [place] [address]Dr. Emelina Navarro BNPon 03-28-2023 Natriuretic peptide B (Bld) [Mass/Vol] 7479.0 pg/mL Critically high <=900.0 [facility] Comment on above: Performed By: #### B ASSEMBLY RIVETER, CMP ####[facility] Tyzndxuwmd74[address] [place], [place] [address]Dr. Emelina Navarro CBC AUTO DIFFon 03-28-2023 BASO # 0.1 103/ul Normal 0.0-0.1 [facility] Comment on above: Performed By: #### C BC ####[facility] Zzpmpfbylx[address] [place], [place] [address]Dr. Emelina Navarro Basophils/100 WBC (Bld) 0.5 % Normal 0.2-2.0 [facility] Comment on above: Performed By: #### C BC ####[facility] Svgrdznllk97[address] [place], [place] [address]Dr. Emelina Navarro EO # 0.4 103/ul Normal 0.0-0.7 [facility] Comment on above: Performed By: #### C BC ####[facility] Djbmvxfrfi81[address] [place], [place] [address]Dr. Emelina Navarro Eosinophils/100 WBC (Bld) 3.7 % Normal 0.9-7.0 [facility] Comment on above: Performed By: #### C BC ####[facility] Zyqlmuceta50[address] [place], [place] [address]Dr. Emelina Navarro Erythrocyte distribution width (RBC) [Ratio] 18.2 % Critically high 11.0-15.0 [facility] Comment on above: Performed By: #### C BC ####[facility] Xgbhzzmdfw365[address] [place], [place] [address]Dr. Emelina Navarro Hematocrit (Bld) [Volume fraction] 39.0 % Critically low 42.0-54.0 [facility] Comment on above: Performed By: #### C BC ####[facility] Wfqjnmrvbl2638 [place] [address]Dr. Emelina Navarro Hemoglobin (Bld) [Mass/Vol] 12.8 g/dL Critically low 14.0-18.0 [facility] Comment on above: Performed By: #### C BC ####[facility] Icrenuahji0158 [place] [address]Dr. Emelina Navarro IG # 0.05 10e3/ul Critically high 0.00-0.03 [facility] Comment on above: Performed By: #### C BC ####[facility] Qsyjlrzkyq0795 [place] [address]Dr. Emelina Navarro IG % 0.5 % Normal 0.0-0.5 [facility] Comment on above: Performed By: #### C BC ####[facility] Qhfbbxsuji[address] [place], [place] [address]Dr. Emelina Navarro LYMPH # 1.4 103/ul Normal 1.2-3.8 [facility] Comment on above: Performed By: #### C BC ####[facility] Samafmfczi220[address] [place], [place] [address]Dr. Emelina Navarro Lymphocytes/100 WBC (Bld) 13.1 % Critically low 20.5-60.0 [facility] Comment on above: Performed By: #### C BC ####[facility] Snrqmhmbme2369 [place] [address]Dr. Emelina Navarro MANUAL DIFF REQ NO Normal [facility] Comment on above: Performed By: #### C BC ####[facility] Iwgsegtvuh0323 [place] [address]Dr. Emelina Navarro MCH (RBC) [Entitic mass] 29.8 pg Normal 25.9-34.0 [facility] Comment on above: Performed By: #### C BC ####[facility] Ufiundnshq6448 [place] [address]Dr. Emelina Navarro MCHC (RBC) [Mass/Vol] 32.8 g/dL Normal 29.9-35.2 [facility] Comment on above: Performed By: #### C BC ####[facility] Aodicemrko6174 [place] [phone]. Emelina Navarro MCV (RBC) [Entitic vol] 90.9 fL Normal 80.0-94.0 [facility] Comment on above: Performed By: #### C BC ####[facility] Sthuhnvlsb5775 [place] [phone]. Emelina Navarro MONO # 0.8 103/ul Normal 0.3-0.8 [facility] Comment on above: Performed By: #### C BC ####[facility] Awvuxuyfrn9353 [place] [address]Dr. Emelina Ramon Monocytes/100 WBC (Bld) 7.5 % Normal 1.7-12.0 [facility] Comment on above: Performed By: #### C BC ####[facility] Lwwrqxvqny[address] [place], [place] [address]Dr. Emelina Navarro NEUT # 8.1 103/ul Critically high 1.4-6.5 [facility] Comment on above: Performed By: #### C BC ####[facility] Ongyhxgxdt27[address] [place], [place] [address]Dr. Emelina Ramon Neutrophils/100 WBC (Bld) 74.7 % Normal 43.0-75.0 [facility] Comment on above: Performed By: #### C BC ####[facility] Sgxohtpeef95[address] [place], [place] [address]Dr. Emelina Ramon Platelet mean volume (Bld) [Entitic vol] 10.0 fL Normal 9.5-13.5 [facility] Comment on above: Performed By: #### C BC ####[facility] Zottdkgupa[address] [place], [place] [address]Dr. Emelina Ramon PLT 242 103/ul Normal 150-450 [facility] Comment on above: Performed By: #### C BC ####[facility] Abhpsezdtd6779 [place] [phone]. Emelina Navarro RBC 4.29 106/ul Critically low 4.70-6.10 [facility] Comment on above: Performed By: #### C BC ####[facility] Bdorpirxtn4090 [place] [phone]. Emelina Navarro WBC 10.8 103/ul Normal 4.0-11.0 [facility] Comment on above: Performed By: #### C BC ####[facility] Hshqpxitbs0405 [place] [phone]. Emelina Navarro PROF 14(COMP METB)on 023 Albumin [Mass/Vol] 2.7 g/dL Critically low 3.4-5.0 [facility] Comment on above: Performed By: #### B ASSEMBLY RIVETER, CMP ####[facility] Xfiksgkyyo2477 [place] [address]Dr. Emelina Navarro Albumin/Globulin [Mass ratio] 0.6 {ratio} Normal [facility] Comment on above: Performed By: #### B ASSEMBLY RIVETER, CMP ####[facility] Dbgniaaeyn2310[address] [place], [place] [address]Dr. Emelina Navarro ALP [Catalytic activity/Vol] 105 U/L Normal 46-116 [facility] Comment on above: Performed By: #### B ASSEMBLY RIVETER, CMP ####[facility] Qbfbigihho55[address] [place], [place] [address]Dr. Emelina Navarro ALT [Catalytic activity/Vol] 21 U/L Normal 16-63 [facility] Comment on above: Performed By: #### B ASSEMBLY RIVETER, CMP ####[facility] Dzraxzkwdb8313 [place] [address]Dr. Emelina Navarro Anion gap [Moles/Vol] 11.6 mmol/L Normal [facility] Comment on above: Performed By: #### B ASSEMBLY RIVETER, CMP ####[facility] Asnnrtxnqz7827 [place] [address]Dr. Emelina Navarro AST [Catalytic activity/Vol] 25 U/L Normal 15-37 [facility] Comment on above: Performed By: #### B ASSEMBLY RIVETER, CMP ####[facility] Etaszxfovw4869 [place] [phone]. Emelina Navarro Bilirubin [Mass/Vol] 0.8 mg/dL Normal 0.2-1.0 [facility] Comment on above: Performed By: #### B ASSEMBLY RIVETER, CMP ####[facility] Zadmtksawt[address] [place], [place] [address]Dr. Emelina Navarro Calcium [Mass/Vol] 8.1 mg/dL Critically low 8.5-10.1 [facility] Comment on above: Performed By: #### B ASSEMBLY RIVETER, CMP ####[facility] Ycgwqyircw203[address] [place], [place] [address]Dr. Emelina Navarro Chloride [Moles/Vol] 100 mmol/L Normal 98-107 [facility] Comment on above: Performed By: #### B ASSEMBLY RIVETER, CMP ####[facility] Judcmaejkz95[address] [place], [place] [address]Dr. Emelina Navarro CO2 [Moles/Vol] 29.2 mmol/L Normal 21.0-32.0 [facility] Comment on above: Performed By: #### B ASSEMBLY RIVETER, CMP ####[facility] Tiurzdfmtk95[address] [place], [place] [address]Dr. Emelina Navarro Creatinine [Mass/Vol] 1.66 mg/dL Critically high 0.70-1.30 [facility] Comment on above: Performed By: #### B ASSEMBLY RIVETER, CMP ####[facility] Iycumqeldj9[address] [place], [place] [address]Dr. Emelina Navarro EGFR-AF ZIMBABWEAN 50 mL/min/1.73m2 Critically low >=60 [facility] Comment on above: Performed By: #### B ASSEMBLY RIVETER, CMP ####[facility] Nsuymlmzhc9[address] [place], [place] [address]Dr. Emelina Navarro EGFR-NON AF ZIMBABWEAN 41 mL/min/1.73m2 Critically low >=60 [facility] Comment on above: Performed By: #### B ASSEMBLY RIVETER, CMP ####[facility] Lpawawuuyd[address] [place], [place] [address]Dr. Emelina Navarro Globulin (S) [Mass/Vol] 4.2 g/dL Normal [facility] Comment on above: Performed By: #### B ASSEMBLY RIVETER, CMP ####[facility] Zyzxgcbudr4[address] [place], [place] [address]Dr. Emelina Navarro Glucose [Mass/Vol] 126 mg/dL Critically high 74-106 [facility] Comment on above: Performed By: #### B ASSEMBLY RIVETER, CMP ####[facility] Hlcqaqozjq7269 [place] [address]Dr. Emelina Navarro Potassium [Moles/Vol] 3.8 mmol/L Normal 3.5-5.1 [facility] Comment on above: Performed By: #### B ASSEMBLY RIVETER, CMP ####[facility] Dkobxtxhsb309[address] [place], [place] [address]Dr. Emelina Navarro Protein [Mass/Vol] 6.9 g/dL Normal 6.4-8.2 [facility] Comment on above: Performed By: #### B ASSEMBLY RIVETER, CMP ####[facility] Azhcwmfypf4[address] [place], [place] [address]Dr. Emelina Navarro Sodium [Moles/Vol] 137 mmol/L Normal 136-145 [facility] Comment on above: Performed By: #### B ASSEMBLY RIVETER, CMP ####[facility] Wydcrcxhqu34[address] [place], [place] [address]Dr. Emelina Navarro Urea nitrogen [Mass/Vol] 32.0 mg/dL Critically high 7.0-18.0 [facility] Comment on above: Performed By: #### B ASSEMBLY RIVETER, CMP ####[facility] Dodnfmgnuh[address] [place], [place] [address]Dr. Emelina Navarro Urea nitrogen/Creatinine [Mass ratio] 19.3 mg/mg Normal [facility] Comment on above: Performed By: #### B ASSEMBLY RIVETER, CMP ####[facility] Bkmbqslekg674[address] [place], [place] [address]Dr. Emelina Ramon PROTIMEon 03-28-2023 INR Coag (PPP) [Relative time] 2.59 {INR} Normal [facility] Comment on above: Performed By: #### P T ####[facility] Duphhwikxi[address] [place], [place] [address]Dr. Awildanitza Ramon INR GUIDELINES SEE BELOW Normal [facility] Comment on above: Result Comment: WENDY RED INR: 2.0 - 3.0 CONDITIONS NOT LISTED BELOW 2.5 - 3.5 FOR PROSTHETIC HEART VALVE REPLACEMENT 2.5 - 3.5 RECURRENT THROMBOSIS Performed By: #### P T ####[facility] Rfkstpwemw4636 [place] [address]Dr. Emelina Navarro PT Coag (PPP) [Time] 26.0 s Critically high 9.0-11.6 [facility] Comment on above: Performed By: #### P T ####[facility] Udevmudrmp90[address] [place], [place] [address]Dr. Emelina Navarro SED RATE WESTERGRENon 2022 SED RATE 62 mm/hr Critically high <=20 [facility] Comment on above: Performed By: #### S EDR ####[facility] Vcjwexnnns[address] [place], [place] [address]Dr. Emelina Navarro BNPon 03-27-2023 Natriuretic peptide B (Bld) [Mass/Vol] 58857.0 pg/mL Critically high <=900.0 [facility] Comment on above: Performed By: #### B ASSEMBLY RIVETER ####[facility] Qaewxfuwiy[address] [place], [place] [address]Dr. Emelina Navarro CARDIAC IMTIAZ 3-6on 3 CK [Catalytic activity/Vol] 59 U/L Normal 39-308 [facility] Comment on above: Performed By: #### C MREP ####[facility] [address]slihcuoxa[address] [place], [place] [address]Dr. Emelina Navarro CK.MB [Mass/Vol] 1.98 ng/mL Normal <=3.60 [facility] Comment on above: Performed By: #### C MREP ####[facility] Nylnzxhcaq[address] [place], [place] [address]Dr. Emelina Navarro HSTROP 52.5 pg/mL Normal 4.0-76.1 [facility] Comment on above: Result Comment: CUT- OFF POINTS HAVE BEEN ESTABLISHED BASED ON THE FOURTH UNIVERSAL DEFINITIONS OF MYOCARDIALINFARCTION. THE UPPER REFERENCE LIMIT (URL) OF TROPONIN, DEFINED THE 99TH PERCENTILE OFcTnI DISTRIBUTION IN A REFERENCE POPULATION, HAS BEEN CONFIRMED THE DECISION THRESHOLDFOR [place] DIAGNOSIS. Performed By: #### C MREP ####[facility] Dzbktkbkws0171 [place] [phone]. Emelina Navarro CK [Catalytic activity/Vol] 41 U/L Normal 39-308 [facility] Comment on above: Performed By: #### C MREP ####[facility] Ynvtojzccs2349 [place] [phone]. Emelina Navarro CK.MB [Mass/Vol] 1.26 ng/mL Normal <=3.60 [facility] Comment on above: Performed By: #### C MREP ####[facility] Wlgtbvqejt4132 [place] [phone]. Emelina Navarro HSTROP 49.5 pg/mL Normal 4.0-76.1 [facility] Comment on above: Result Comment: CUT- OFF POINTS HAVE BEEN ESTABLISHED BASED ON THE FOURTH UNIVERSAL DEFINITIONS OF MYOCARDIALINFARCTION. THE UPPER REFERENCE LIMIT (URL) OF TROPONIN, DEFINED THE 99TH PERCENTILE OFcTnI DISTRIBUTION IN A REFERENCE POPULATION, HAS BEEN CONFIRMED THE DECISION THRESHOLDFOR [place] DIAGNOSIS. Performed By: #### C MREP ####[facility] Curkrvjcpl8[address] [place] [phone]. Emelina Navarro CBC AUTO DIFFon 03-27-2023 BASO # 0.0 103/ul Normal 0.0-0.1 [facility] Comment on above: Performed By: #### C BC ####[facility] Zodqkryxbb8508 [place] [phone]. Emelina Navarro Basophils/100 WBC (Bld) 0.3 % Normal 0.2-2.0 [facility] Comment on above: Performed By: #### C BC ####[facility] Kkiurfbcic1423 [place] [phone]. Emelina Navarro EO # 0.4 103/ul Normal 0.0-0.7 [facility] Comment on above: Performed By: #### C BC ####[facility] Xelrfbabsu3366 [place] [phone]. Emelina Navarro Eosinophils/100 WBC (Bld) 3.3 % Normal 0.9-7.0 [facility] Comment on above: Performed By: #### C BC ####[facility] Inhqloxgsz3357 [place] [address]Dr. Emelina Navarro Erythrocyte distribution width (RBC) [Ratio] 17.9 % Critically high 11.0-15.0 [facility] Comment on above: Performed By: #### C BC ####[facility] Ifaznngynx3595 [place] [address]Dr. Emelina Navarro Hematocrit (Bld) [Volume fraction] 42.3 % Normal 42.0-54.0 [facility] Comment on above: Performed By: #### C BC ####[facility] Suxmdyyzpu[address] [place], [place] [address]Dr. Emelina Navarro Hemoglobin (Bld) [Mass/Vol] 13.8 g/dL Critically low 14.0-18.0 [facility] Comment on above: Performed By: #### C BC ####[facility] Peljhspkwo[address] [place], [place] [address]Dr. Emelina Navarro IG # 0.07 10e3/ul Critically high 0.00-0.03 [facility] Comment on above: Performed By: #### C BC ####[facility] Vaqbhmftaj6[address] [place], [place] [address]Dr. Emelina Navarro IG % 0.5 % Normal 0.0-0.5 [facility] Comment on above: Performed By: #### C BC ####[facility] Xfpdastrdb[address] [place], [place] [address]Dr. Emelina Navarro LYMPH # 2.3 103/ul Normal 1.2-3.8 [facility] Comment on above: Performed By: #### C BC ####[facility] Cbyyhfqpxe17[address] [place], [place] [address]Dr. Emelina Navarro Lymphocytes/100 WBC (Bld) 17.5 % Critically low 20.5-60.0 [facility] Comment on above: Performed By: #### C BC ####[facility] Wdiqovwmja[address] [place], [place] [address]Dr. Emelina Navarro MANUAL DIFF REQ NO Normal [facility] Comment on above: Performed By: #### C BC ####[facility] Cvyyorbegh4055 [place] [phone]. Emelina Navarro MCH (RBC) [Entitic mass] 29.3 pg Normal 25.9-34.0 [facility] Comment on above: Performed By: #### C BC ####[facility] Mkorndfqpg7333 [place] [phone]. Emelina Navarro MCHC (RBC) [Mass/Vol] 32.6 g/dL Normal 29.9-35.2 [facility] Comment on above: Performed By: #### C BC ####[facility] Bfnsgzudlw8647 [place] [phone]. Emelina Navarro MCV (RBC) [Entitic vol] 89.8 fL Normal 80.0-94.0 [facility] Comment on above: Performed By: #### C BC ####[facility] [address]cbmrrzgm[address] [place], [place] [address]Dr. Emelina Navarro MONO # 1.0 103/ul Critically high 0.3-0.8 [facility] Comment on above: Performed By: #### C BC ####[facility] Jilchhcqyx[address] [place], [place] [address]Dr. Awildanitza Navarro Monocytes/100 WBC (Bld) 7.8 % Normal 1.7-12.0 [facility] Comment on above: Performed By: #### C BC ####[facility] Yzrxykvjuw[address] [place], [place] [address]Dr. Emelina Navarro NEUT # 9.3 103/ul Critically high 1.4-6.5 [facility] Comment on above: Performed By: #### C BC ####[facility] Vkgaaqqklr7272 [place] [address]Dr. Emelina Navarro Neutrophils/100 WBC (Bld) 70.6 % Normal 43.0-75.0 [facility] Comment on above: Performed By: #### C BC ####[facility] Uoidjdwzgh3790 [place] [address]Dr. Emelina Navarro Platelet mean volume (Bld) [Entitic vol] 9.6 fL Normal 9.5-13.5 [facility] Comment on above: Performed By: #### C BC ####[facility] Xvlpjrwojv0857 [place] [phone]. Emelina Navarro PLT 248 103/ul Normal 150-450 [facility] Comment on above: Performed By: #### C BC ####[facility] Bdwiofygzj6575 [place] [phone]. Emelina Navarro RBC 4.71 106/ul Normal 4.70-6.10 [facility] Comment on above: Performed By: #### C BC ####[facility] Wakhzgjdfd7668 [place] [phone]. Emelina Navarro WBC 13.2 103/ul Critically high 4.0-11.0 [facility] Comment on above: Performed By: #### C BC ####[facility] Dqpusfcfee7094 [place] [phone]. Emelina Navarro DIGOXINon 03-27-2023 DIG 1.1 ng/mL Normal 0.9-2.0 [facility] Comment on above: Performed By: #### D IG ####[facility] Twyktwhrju6355 [place] [phone]. Emelina Navarro LACTATE/LACTIC ACIDon 2022 Lactate [Moles/Vol] 0.8 mmol/L Normal 0.4-2.0 [facility] Comment on above: Performed By: #### L ACT ####[facility] Gnzouwmeyb6511 [place] [phone]. Emelina Navarro LIPID PROFILEon 03-27-2023 CHOL-HDL RATIO NORM SEE BELOW Normal [facility] Comment on above: Result Comment: 3.3 - 4.4 LOW RISK 4.4 - 7.1 AVERAGE RISK 7.1 - 11.0 MODERATE RISK >11.0 HIGH RISK Performed By: #### L IPID, TSH ####[facility] Dromlonopv87[address] [place] [phone]. Emelina Navarro Cholesterol [Mass/Vol] 86 mg/dL Normal <=200 [facility] Comment on above: Performed By: #### L IPID, TSH ####[facility] Nfkyhyrlnu7749 [place] [phone]. Emelina Navarro Cholesterol in HDL [Mass/Vol] 29 mg/dL Critically low 40-60 [facility] Comment on above: Performed By: #### L IPID, TSH ####[facility] Gwnzrznspk6292 [place] [phone]. Emelina Navarro Cholesterol in LDL [Mass/Vol] 37.8 mg/dL Normal [facility] Comment on above: Performed By: #### L IPID, TSH ####[facility] Zueloyicys8406 [place] [phone]. Emelina Navarro Cholesterol.total/Cho lesterol in HDL [Mass ratio] 3.0 {ratio} Normal [facility] Comment on above: Performed By: #### L IPID, TSH ####[facility] Ndamsgfzeg50[address] [place] [address]Dr. Emelina Navarro HDL NORMAL > or = 60 mg/dl - LO W CARDIOVASCULAR RISK <40 mg/dl - HIGH CARDIOVASCULAR RISK Normal [facility] Comment on above: Performed By: #### L IPID, TSH ####[facility] Iwzpgboaxp1773 [place] [address]Dr. Emelina Navarro LDL CALC NORMAL SEE BELOW Normal [facility] Comment on above: Result Comment: <100 mg/dl OPTIMAL 100 - 129 mg/dl NEAR OR ABOVE OPTIMAL 130 - 159 mg/dl BORDERLINE HIGH 160 - 189 mg/dl HIGH >190 mg/dl VERY HIGH Performed By: #### L IPID, TSH ####[facility] Yirorpffjc3345 [place] [address]Dr. Emelina Navarro Triglyceride [Mass/Vol] 96 mg/dL Normal <=150 [facility] Comment on above: Performed By: #### L IPID, TSH ####[facility] Yuorhywfis8419 [place] [address]Dr. Emelina Navarro VLDL CALC 19.2 mg/dL Normal [facility] Comment on above: Performed By: #### L IPID, TSH ####[facility] Mxppwzjlkx6817 [place] [address]Dr. Emelina Navarro POINT OF CARE GLUCOSEon 05-0 9-2023 Glucose [Mass/Vol] 175 mg/dL Critically high 74-106 [facility] Comment on above: Performed By: #### P OCGLUC ####[facility] Jqxbzdrcwy4726 [place] [address]Dr. Emelina Navarro Glucose [Mass/Vol] 196 mg/dL Critically high 74-106 [facility] Comment on above: Performed By: #### P OCGLUC ####[facility] Bwdnrhkomn8282 [place] [address]Dr. Emelina Navarro PROF 14(COMP METB)on 023 Albumin [Mass/Vol] 2.9 g/dL Critically low 3.4-5.0 [facility] Comment on above: Performed By: #### C MP ####[facility] [address]ilbnqj[address] [place], [place] [address]Dr. Emelina Navarro Albumin/Globulin [Mass ratio] 0.6 {ratio} Normal [facility] Comment on above: Performed By: #### C MP ####[facility] Hzagrdbfak[address] [place], [place] [address]Dr. Emelina Navarro ALP [Catalytic activity/Vol] 112 U/L Normal 46-116 [facility] Comment on above: Performed By: #### C MP ####[facility] Skohthutyy[address] [place], [place] [address]Dr. Emelina Navarro ALT [Catalytic activity/Vol] 23 U/L Normal 16-63 [facility] Comment on above: Performed By: #### C MP ####[facility] Lphtjwlknd[address] [place], [place] [address]Dr. Emelina Navarro Anion gap [Moles/Vol] 9.5 mmol/L Normal [facility] Comment on above: Performed By: #### C MP ####[facility] Sevovtiqtd[address] [place], [place] [address]Dr. Emelina Navarro AST [Catalytic activity/Vol] 30 U/L Normal 15-37 [facility] Comment on above: Performed By: #### C MP ####[facility] Ulxazhtdzq7[address] [place], [place] [address]Dr. Emelina Navarro Bilirubin [Mass/Vol] 0.8 mg/dL Normal 0.2-1.0 [facility] Comment on above: Performed By: #### C MP ####[facility] Sqptidjjlf[address] [place], [place] [address]Dr. Emelina Navarro Calcium [Mass/Vol] 8.2 mg/dL Critically low 8.5-10.1 [facility] Comment on above: Performed By: #### C MP ####[facility] Acxwkknwer[address] [place], [place] [address]Dr. Emelina Navarro Chloride [Moles/Vol] 100 mmol/L Normal 98-107 [facility] Comment on above: Performed By: #### C MP ####[facility] Wbsrrtczve9[address] [place], [place] [address]Dr. Emelina Navarro CO2 [Moles/Vol] 32.9 mmol/L Critically high 21.0-32.0 [facility] Comment on above: Performed By: #### C MP ####[facility] Jxfwixziec[address] [place], [place] [address]Dr. Emelina Navarro Creatinine [Mass/Vol] 1.60 mg/dL Critically high 0.70-1.30 [facility] Comment on above: Performed By: #### C MP ####[facility] Dddgiaxwkk[address] [place], [place] [address]Dr. Emelina Navarro EGFR-AF ZIMBABWEAN 52 mL/min/1.73m2 Critically low >=60 [facility] Comment on above: Performed By: #### C MP ####[facility] Cuzcogjqbp64[address] [place], [place] [address]Dr. Emelina Ramon EGFR-NON AF ZIMBABWEAN 43 mL/min/1.73m2 Critically low >=60 [facility] Comment on above: Performed By: #### C MP ####[facility] Tvqutxgifc155[address] [place], [place] [address]Dr. Emelina Ramon Globulin (S) [Mass/Vol] 4.6 g/dL Normal [facility] Comment on above: Performed By: #### C MP ####[facility] Gxdfxdlzka[address] [place], [place] [address]Dr. Awildanitza Ramon Glucose [Mass/Vol] 76 mg/dL Normal 74-106 [facility] Comment on above: Performed By: #### C MP ####[facility] [address] [place] [address]Dr. Awildanitza Ramon Potassium [Moles/Vol] 3.4 mmol/L Critically low 3.5-5.1 [facility] Comment on above: Performed By: #### C MP ####[facility] Krgzdjvfkv[address] [place], [place] [address]Dr. Emelina Navarro Protein [Mass/Vol] 7.5 g/dL Normal 6.4-8.2 [facility] Comment on above: Performed By: #### C MP ####[facility] Uakyxotwly[address] [place], [place] [address]Dr. Emelina Navarro Sodium [Moles/Vol] 139 mmol/L Normal 136-145 [facility] Comment on above: Performed By: #### C MP ####[facility] Zkcqiqbwhd[address] [place], [place] [address]Dr. Emelina Navarro Urea nitrogen [Mass/Vol] 30.0 mg/dL Critically high 7.0-18.0 [facility] Comment on above: Performed By: #### C MP ####[facility] Eqriiwcqwl[address] [place], [place] [address]Dr. Emelina Navarro Urea nitrogen/Creatinine [Mass ratio] 18.8 mg/mg Normal [facility] Comment on above: Performed By: #### C MP ####[facility] Idwjxxkzvj[address] [place], [place] [address]Dr. Emelina Navarro PROTIMEon 03-27-2023 INR Coag (PPP) [Relative time] 2.58 {INR} Normal [facility] Comment on above: Performed By: #### P T ####[facility] Apbmfrzyiw[address] [place], [place] [address]Dr. Emelina Navarro INR GUIDELINES SEE BELOW Normal [facility] Comment on above: Result Comment: WENDY RED INR: 2.0 - 3.0 CONDITIONS NOT LISTED BELOW 2.5 - 3.5 FOR PROSTHETIC HEART VALVE REPLACEMENT 2.5 - 3.5 RECURRENT THROMBOSIS Performed By: #### P T ####[facility] [address] [place] [address]DrWesley Navarro PT Coag (PPP) [Time] 25.9 s Critically high 9.0-11.6 [facility] Comment on above: Performed By: #### P T ####[facility] Zhqhz[address]dn[address] [place], [place] [address]DrWesley Navarro T4on 03-27-2023 T4 [Mass/Vol] 6.50 ug/dL Normal 4.50-12.10 [facility] Comment on above: Performed By: #### T 4 ####[facility] Phwtvze[address]je[address] [place], [place] [address]Dr. Emelina Navarro TSHon 03-27-2023 TSH 5.619 uIU/mL Critically high 0.358-3.74 0 [facility] Comment on above: Performed By: #### L IPID, TSH ####[facility] [address]xsh[address] [place], [place] [address]Dr. Emelina Navarro US FERNY DOP LEG RTon 03-27-20 23 US FERNY DOP LEG RT Normal [facility] XR CHEST 1 Von 03-27-2023 XR CHEST 1 V Normal [facility] XR FOOT RT MIN 3 VIEWSon XR FOOT RT MIN 3 VIEWS Normal [facility] BNPon 03-26-2023 Natriuretic peptide B (Bld) [Mass/Vol] 79777.0 pg/mL Critically high <=900.0 [facility] Comment on above: Performed By: #### B MP, CRP, CMADM, BNP ####[facility] [address] [place] [address]Dr. Emelina Navarro CARDIAC IMTIAZ ADMITon 023 CK [Catalytic activity/Vol] 48 U/L Normal 39-308 [facility] Comment on above: Performed By: #### B MP, CRP, CMADM, BNP ####[facility] Tefhfktkze[address] [place], [place] [address]DrWesley Navarro CK.MB [Mass/Vol] 1.48 ng/mL Normal <=3.60 [facility] Comment on above: Performed By: #### B MP, CRP, CMADM, BNP ####[facility] [address] [place] [address]Dr. Emelina Navarro HSTROP 49.9 pg/mL Normal 4.0-76.1 [facility] Comment on above: Result Comment: CUT- OFF POINTS HAVE BEEN ESTABLISHED BASED ON THE FOURTH UNIVERSAL DEFINITIONS OF MYOCARDIALINFARCTION. THE UPPER REFERENCE LIMIT (URL) OF TROPONIN, DEFINED THE 99TH PERCENTILE OFcTnI DISTRIBUTION IN A REFERENCE POPULATION, HAS BEEN CONFIRMED THE DECISION THRESHOLDFOR W[place] DIAGNOSIS. Performed By: #### B MP, CRP, CMADM, BNP ####[facility] [address] [place] [address]Dr. Emelina Ramon URBANO 117 ng/mL Critically high 16-96 [facility] Comment on above: Performed By: #### B MP, CRP, CMADM, BNP ####[facility] E[address]ns[address] [place] [address]Dr. Emelina Ramon CBC AUTO DIFFon 03-26-2023 BASO # 0.1 103/ul Normal 0.0-0.1 [facility] Comment on above: Performed By: #### C BC ####[facility] [address]akymjjm[address] [place], [place] [address]Dr. Emelina Ramon Basophils/100 WBC (Bld) 0.4 % Normal 0.2-2.0 [facility] Comment on above: Performed By: #### C BC ####[facility] Umxpvimbhs[address] [place], [place] [address]Dr. Emelina Ramon EO # 0.5 103/ul Normal 0.0-0.7 [facility] Comment on above: Performed By: #### C BC ####[facility] Uojonrthhx[address] [place], [place] [address]Dr. Emelina Ramon Eosinophils/100 WBC (Bld) 3.5 % Normal 0.9-7.0 [facility] Comment on above: Performed By: #### C BC ####[facility] Bnrseiwqbx[address] [place], [place] [address]Dr. Emelina Navarro Erythrocyte distribution width (RBC) [Ratio] 17.7 % Critically high 11.0-15.0 [facility] Comment on above: Performed By: #### C BC ####[facility] [address] [place] [address]Dr. Emelina Navarro Hematocrit (Bld) [Volume fraction] 42.6 % Normal 42.0-54.0 [facility] Comment on above: Performed By: #### C BC ####[facility] [address]ufkw[address]oy[address] [place] [address]Dr. Emelina Navarro Hemoglobin (Bld) [Mass/Vol] 14.2 g/dL Normal 14.0-18.0 [facility] Comment on above: Performed By: #### C BC ####[facility] [address]va[address]xiwy[address] [place] [address]Dr. Emelina Navarro IG # 0.09 10e3/ul Critically high 0.00-0.03 [facility] Comment on above: Performed By: #### C BC ####[facility] [address]auzyvunra[address] [place], [place] [address]Dr. Emelina Navarro IG % 0.7 % Critically high 0.0-0.5 [facility] Comment on above: Performed By: #### C BC ####[facility] Pdgjgumnuc[address] [place], [place] [address]Dr. Emelina Ramon LYMPH # 2.3 103/ul Normal 1.2-3.8 [facility] Comment on above: Performed By: #### C BC ####[facility] Sbglrusijv[address] [place], [place] [address]DrWesley Emelina Ramon Lymphocytes/100 WBC (Bld) 17.3 % Critically low 20.5-60.0 [facility] Comment on above: Performed By: #### C BC ####[facility] Rquorcezcw[address] [place], [place] [address]DrWesley Emelina Ramon MANUAL DIFF REQ NO Normal [facility] Comment on above: Performed By: #### C BC ####[facility] Kwbgqyulrw[address] [place], [place] [address]Dr. Emelina Navarro MCH (RBC) [Entitic mass] 29.6 pg Normal 25.9-34.0 [facility] Comment on above: Performed By: #### C BC ####[facility] [address] [place] [address]Dr. Emelina Navarro MCHC (RBC) [Mass/Vol] 33.3 g/dL Normal 29.9-35.2 [facility] Comment on above: Performed By: #### C BC ####[facility] Wlhlihsxdt55[address] [place] [address]Dr. Emelina Navarro MCV (RBC) [Entitic vol] 88.9 fL Normal 80.0-94.0 [facility] Comment on above: Performed By: #### C BC ####[facility] Es[address]xpsd[address] [place] [address]Dr. Emelina Navarro MONO # 1.3 103/ul Critically high 0.3-0.8 [facility] Comment on above: Performed By: #### C BC ####[facility] Exuvzswmlr[address] [place] [address]Dr. Emelina Navarro Monocytes/100 WBC (Bld) 9.7 % Normal 1.7-12.0 [facility] Comment on above: Performed By: #### C BC ####[facility] Od[address]zas[address] [place] [address]Dr. Emelina Navarro NEUT # 9.2 103/ul Critically high 1.4-6.5 [facility] Comment on above: Performed By: #### C BC ####[facility] [address]aze[address] [place] [address]Dr. Emelina Ramon Neutrophils/100 WBC (Bld) 68.4 % Normal 43.0-75.0 [facility] Comment on above: Performed By: #### C BC ####[facility] [address] [place] [id number]. Emelina Navarro Platelet mean volume (Bld) [Entitic vol] 9.6 fL Normal 9.5-13.5 [facility] Comment on above: Performed By: #### C BC ####[facility] Yrx[address]cvum[address] [place] [address]Dr. Emelina Navarro PLT 271 103/ul Normal 150-450 [facility] Comment on above: Performed By: #### C BC ####[facility] W[address] [place] [address]Dr. Emelina Navarro RBC 4.79 106/ul Normal 4.70-6.10 [facility] Comment on above: Performed By: #### C BC ####[facility] Dfcmfjgijl[address] [place] [address]Dr. Emelina Navarro WBC 13.4 103/ul Critically high 4.0-11.0 [facility] Comment on above: Performed By: #### C BC ####[facility] Uvqkdvbnhz[address] [place], [place] [address]Dr. Emelina Navarro CRPon 03-26-2023 CRP 4.6 mg/dL Critically high <=1.0 [facility] Comment on above: Performed By: #### B MP, CRP, CMADM, BNP ####[facility] Wogwxwnhqi[address] [place], [place] [address]Dr. Emelina Navarro LACTATE/LACTIC ACIDon 2022 Lactate [Moles/Vol] 1.6 mmol/L Normal 0.4-2.0 [facility] Comment on above: Performed By: #### L ACT ####[facility] [address]vlpvhnh[address] [place], [place] [address]Dr. Emelina Navarro PROF CHEM 8 (BAS METB)on Anion gap [Moles/Vol] 9.6 mmol/L Normal [facility] Comment on above: Performed By: #### B MP, CRP, CMADM, BNP ####[facility] [address]jj[address]vy[address] [place] [address]Dr. Emelina Navarro Calcium [Mass/Vol] 8.4 mg/dL Critically low 8.5-10.1 Th [facility] Comment on above: Performed By: #### B MP, CRP, CMADM, BNP ####[facility] Zwnsbuspfw[address] [place], [place] [address]Dr. Emelina Navarro Chloride [Moles/Vol] 102 mmol/L Normal 98-107 [facility] Comment on above: Performed By: #### B MP, CRP, CMADM, BNP ####[facility] [address] [place] [address]Dr. Emelina Navarro CO2 [Moles/Vol] 30.9 mmol/L Normal 21.0-32.0 [facility] Comment on above: Performed By: #### B MP, CRP, CMADM, BNP ####[facility] [address]wh[address]df[address] [place] [address]Dr. Emelina Navarro Creatinine [Mass/Vol] 1.73 mg/dL Critically high 0.70-1.30 [facility] Comment on above: Performed By: #### B MP, CRP, CMADM, BNP ####[facility] [address]nsjer[address] [place] [address]Dr. Emelina Navarro EGFR-AF ZIMBABWEAN 48 mL/min/1.73m2 Critically low >=60 [facility] Comment on above: Performed By: #### B MP, CRP, CMADM, BNP ####[facility] Ytk[address]ozc[address] [place] [address]Dr. Emelina Navarro EGFR-NON AF ZIMBABWEAN 39 mL/min/1.73m2 Critically low >=60 [facility] Comment on above: Performed By: #### B MP, CRP, CMADM, BNP ####[facility] Efxuvnsqqx[address] [place] [address]Dr. Emelina Navarro Glucose [Mass/Vol] 73 mg/dL Critically low 74-106 Th [facility] Comment on above: Performed By: #### B MP, CRP, CMADM, BNP ####[facility] [address]ub[address]jwhz[address] [place] [address]Dr. Emelina Navarro Potassium [Moles/Vol] 3.5 mmol/L Normal 3.5-5.1 [facility] Comment on above: Performed By: #### B MP, CRP, CMADM, BNP ####[facility] [address] [place] [address]Dr. Emelina Navarro Sodium [Moles/Vol] 139 mmol/L Normal 136-145 [facility] Comment on above: Performed By: #### B MP, CRP, CMADM, BNP ####[facility] Ofxiemmuhw[address] [place] [id number]. Emelina Navarro Urea nitrogen [Mass/Vol] 29.0 mg/dL Critically high 7.0-18.0 [facility] Comment on above: Performed By: #### B MP, CRP, CMADM, BNP ####[facility] [address] [place] [id number]. Emelina Navarro Urea nitrogen/Creatinine [Mass ratio] 16.8 mg/mg Normal [facility] Comment on above: Performed By: #### B MP, CRP, CMADM, BNP ####[facility] Xkjhtjqroy[address] [place] [address]Dr. Emelina Navarro SED RATE [facility] 2022 SED RATE 60 mm/hr Critically high <=20 [facility] Comment on above: Performed By: #### S EDR ####[facility] [address] [place] [address]Dr. Emelina Navarro Office Visiton 03-21-2023 Follow-up visit [id number] Adwoa Porter 1955 M Julien Provider Department Center 03/21/2023 DAHIANA LOCKHART [facility] Family History Problem Relation Age of Onset Diabetes Mother Hypertension Mother Coronary artery disease Mother Family Status - Relation Status Age at Mother Level of Service:[address] [place] OFFICE/OUTPATIENT ESTABLISHED MOD MDM 30-39 MIN Normal [facility] Basic Metabolic Panelon 04-0 Anion gap [Moles/Vol] 13.7 mmol/L Normal 6.0-15.0 [facility] Comment on above: Order Comment: Comme nt add on if possible Performed By: #### M G #### [facility] [address] Calcium [Mass/Vol] 9.2 mg/dL Normal 8.6-10.3 [facility] Comment on above: Order Comment: Comme nt add on if possible Result Comment: PERF ORMED BY: [place] [address] PATHOLOGIST VOICE TEACHER RAFA BYRNE M.D. Performed By: #### M G #### [facility] [address] [place] [address] Chloride [Moles/Vol] 94 mmol/L Low 98-107 [facility] Comment on above: Order Comment: Comme nt add on if possible Performed By: #### M G #### [address] CO2 [Moles/Vol] 31.1 mmol/L High 21.0-31.0 [facility] Comment on above: Order Comment: Comme nt add on if possible Performed By: #### M G #### [address] Creatinine [Mass/Vol] 1.57 mg/dL High 0.70-1.30 [facility] Comment on above: Order Comment: Comme nt add on if possible Performed By: #### M G #### [place] [address] [place] GFR/1.73 sq M.predicted MDRD (S/P/Bld) [Vol rate/Area] 47.712 mL/min/{1.73_m2} Normal [facility] Comment on above: Order Comment: Comme nt add on if possible Performed By: #### M G #### [facility] [address] [place] [address] [place] Glucose [Mass/Vol] 67 mg/dL Low 70-100 [facility] Comment on above: Order Comment: Comme nt add on if possible Result Comment: [place] Glucose Reference Range is dependent on time and content of last meal. Glucose of more than 200 mg/dL in a nonstressed, ambulatory subject supports the diagnosis of Diabetes Mellitus. ADA recommended reference range Performed By: #### M G #### [place] [address] [place] Potassium [Moles/Vol] 3.8 mmol/L Normal 3.5-5.1 [facility] Comment on above: Order Comment: Comme nt add on if possible Performed By: #### M G #### [facility] [address] [place] [id number] [place] Sodium [Moles/Vol] 135 mmol/L Low 136-145 [facility] Comment on above: Order Comment: Comme nt add on if possible Performed By: #### M G #### [facility] [address] [place] [id number] [place] Urea nitrogen [Mass/Vol] 25 mg/dL Normal 7-25 [facility] Comment on above: Order Comment: Comme nt add on if possible Performed By: #### M G #### [facility] [address] Calcium [Mass/volume] in Ser um or PlasmaOrdered By: Yakov To on 02-21-2023 Calcium [Mass/Vol] 9.2 mg/dL 8.6-10.3 [facility] Carbon dioxide, total [Moles /volume] in Serum or PlasmaOrdered By: Yakov To on 02-21-2023 CO2 [Moles/Vol] 31.1 mmol/L 21.0-31.0 [facility] Chloride [Moles/volume] in S mary or PlasmaOrdered By: Yakov To on 02-21-2023 Chloride [Moles/Vol] 94 mmol/L 98-107 [facility] Creatinine [Mass/volume] in Serum or PlasmaOrdered By: Yakov To on 02-21-2023 Creatinine [Mass/Vol] 1.57 mg/dL 0.70-1.30 [facility] Glucose [Mass/volume] in Ser um or PlasmaOrdered By: Yakov To on 02-21-2023 Glucose [Mass/Vol] 67 mg/dL 70-100 [facility] Comment on above: ADA recommended refe rence rangeRandom Glucose Reference Range is dependent on time and content of last meal. Glucose of more than 200 mg/dL in a nonstressed, ambulatory subject supports the diagnosis of Diabetes Mellitus. No Panel InformationOrdered By: Yakov To on 02-21-2023 Estimated GFR (CKD-EPI) 47.712 mL/Min [facility] Creatinine Clearance (Chem N/A [facility] Potassium [Moles/volume] in Serum or PlasmaOrdered By: Yakov To on 02-21-2023 Potassium [Moles/Vol] 3.8 mmol/L 3.5-5.1 [facility] Serum or plasma anion gap de terminationOrdered By: Yakov To on 02-21-2023 Anion gap [Moles/Vol] 13.7 mmol/L 6.0-15.0 [facility] Sodium [Moles/volume] in Ser um or PlasmaOrdered By: Yakov To on 02-21-2023 Sodium [Moles/Vol] 135 mmol/L 136-145 [facility] Urea nitrogen [Mass/volume] in Serum or PlasmaOrdered By: Yakov To on 02-21-2023 Urea nitrogen [Mass/Vol] 25 mg/dL 7-25 [facility] A1C with Estimated Average G luon 02-14-2023 Glucose [Mass/Vol] 252 mg/dL Normal [facility] Comment on above: Result Comment: PERF ORMED BY: [place] [address] PATHOLOGIST VOICE TEACHER RAFA BYRNE M.D. Performed By: #### B MP, MG, A1C WTH eA #### [facility] [address] [place] [address] HbA1c (Bld) [Mass fraction] 10.4 % High 4.3-5.6 [facility] Comment on above: Result Comment: Incr eased risk for diabetes: 5.7 - 6.4 diabetes: >6.4 glycemic control for adults with diabetes: <7.0 Performed By: #### B MP, MG, A1C WTH eA #### [facility] [address] [place] [address] Basic Metabolic Panelon 01-18 Anion gap [Moles/Vol] 13.4 mmol/L Normal 6.0-15.0 [facility] Comment on above: Performed By: #### B MP, MG, A1C WTH eA #### [facility] [address] [place] [address] [place] Calcium [Mass/Vol] 9.1 mg/dL Normal 8.6-10.3 [facility] Comment on above: Performed By: #### B MP, MG, A1C WTH eA #### [facility] [address] [place] [id number] [place] Chloride [Moles/Vol] 95 mmol/L Low 98-107 [facility] Comment on above: Performed By: #### B MP, MG, A1C WTH eA #### [facility] [address] [place] [address] [place] CO2 [Moles/Vol] 30.7 mmol/L Normal 21.0-31.0 [facility] Comment on above: Performed By: #### B MP, MG, A1C WTH eA #### [facility] [address] [place] [address] [place] Creatinine [Mass/Vol] 1.65 mg/dL High 0.70-1.30 [facility] Comment on above: Performed By: #### B MP, MG, A1C WTH eA #### [facility] [address] [place] [address] [place] Creatinine Clr Calc Pharmacy 49.22 [facility] Comment on above: Performed By: #### B MP, MG, A1C WTH eA #### [facility] [address] [place] [address] [place] GFR/1.73 sq M.predicted MDRD (S/P/Bld) [Vol rate/Area] 44.950 mL/min/{1.73_m2} [facility] Comment on above: Performed By: #### B MP, MG, A1C WTH eA #### [facility] [address] [place] [address] [place] Glucose [Mass/Vol] 193 mg/dL Significant change up 70-100 [facility] Comment on above: Result Comment: [place] Glucose Reference Range is dependent on time and content of last meal. Glucose of more than 200 mg/dL in a nonstressed, ambulatory subject supports the diagnosis of Diabetes Mellitus. ADA recommended reference range Performed By: #### B MP, MG, A1C WTH eA #### [facility] [address] [place] [address] [place] Potassium [Moles/Vol] 3.1 mmol/L Low 3.5-5.1 [facility] Comment on above: Performed By: #### B MP, MG, A1C WTH eA #### [facility] [address] [place] [address] [place] Sodium [Moles/Vol] 136 mmol/L Significant change down 136-145 [facility] Comment on above: Performed By: #### B MP, MG, A1C WTH eA #### [facility] [address] [place] [address] [place] Urea nitrogen [Mass/Vol] 43 mg/dL High 7-25 [facility] Comment on above: Performed By: #### B MP, MG, A1C WTH eA #### [facility] [address] Calcium [Mass/volume] in Ser um or PlasmaOrdered By: Yakov To on 02-14-2023 Calcium [Mass/Vol] 9.1 mg/dL 8.6-10.3 [facility] Carbon dioxide, total [Moles /volume] in Serum or PlasmaOrdered By: Yakov To on 02-14-2023 CO2 [Moles/Vol] 30.7 mmol/L 21.0-31.0 [facility] Chloride [Moles/volume] in S mary or PlasmaOrdered By: Yakov To on 02-14-2023 Chloride [Moles/Vol] 95 mmol/L 98-107 [facility] Creatinine [Mass/volume] in Serum or PlasmaOrdered By: Yakov To on 02-14-2023 Creatinine [Mass/Vol] 1.65 mg/dL 0.70-1.30 [facility] Glucose Glucometer (BldC) [M ass/Vol]Ordered By: Yakov To on 02-14-2023 Glucose [Mass/Vol] 197 mg/dL [facility] Comment on above: Random Glucose Refer ence Range is dependent on time and content of last meal. Glucose of more than 200 mg/dL in a nonstressed, ambulatory subject supports the diagnosis of Diabetes Mellitus. Glucose Poct Glucometerson 0 02-14-2023 Glucose [Mass/Vol] 197 mg/dL Normal [facility] Comment on above: Result Comment: [place] Glucose Reference Range is dependent on time and content of last meal. Glucose of more than 200 mg/dL in a nonstressed, ambulatory subject supports the diagnosis of Diabetes Mellitus. PERFORMED BY: [place] [address] PATHOLOGIST VOICE TEACHER RAFA BYRNE M.D. Performed By: #### U A #### [facility] [address] [place] [address] Glucose [Mass/Vol] 350 mg/dL Normal [facility] Comment on above: Result Comment: [place] Glucose Reference Range is dependent on time and content of last meal. Glucose of more than 200 mg/dL in a nonstressed, ambulatory subject supports the diagnosis of Diabetes Mellitus. PERFORMED BY: [place] [address] PATHOLOGIST VOICE TEACHER RAFA BYRNE M.D. Performed By: #### U A #### [address] Glucose [Mass/Vol] 216 mg/dL Normal [facility] Comment on above: Result Comment: [facility] Glucose Reference Range is dependent on time and content of last meal. Glucose of more than 200 mg/dL in a nonstressed, ambulatory subject supports the diagnosis of Diabetes Mellitus. PERFORMED BY: [place] [address] PATHOLOGIST VOICE TEACHER RAFA BYRNE M.D. Performed By: #### G ALVARADO #### Point of Care testing , Glucose [Mass/volume] in Ser um or PlasmaOrdered By: Yakov To on 02-14-2023 Glucose [Mass/Vol] 193 mg/dL 70-100 [facility] Comment on above: Delta: 400 on -9ADA [...] from glycated hemoglobin (Bld) [Mass/Vol] 252 mg/dL [facility] Hemoglobin A1c percentageOrd ered By: Yakov To on 02-14-2023 HbA1c (Bld) [Mass fraction] 10.4 % 4.3-5.6 [facility] Comment on above: Increased risk for d iabetes: 5.7 - 6.4diabetes: >6.4glycemic control for adults with diabetes: <7.0 Laboratory - Chemistry and C hemistry - challengeOrdered By: Yakov To on 02-14-2023 GFR/1.73 sq M.predicted MDRD (S/P/Bld) [Vol rate/Area] 44.950 mL/min/{1.73_m2} [facility] - CoagulationOrde red By: Yakov To on 02-14-2023 PT Coag (PPP) [Time] 25.6 s 9.0-12.9 [facility] Magnesiumon 02-14-2023 Magnesium [Mass/Vol] 2.4 mg/dL Normal 1.9-2.7 [facility] Comment on above: Result Comment: PERF ORMED BY: [place] [address] PATHOLOGIST VOICE TEACHER RAFA BYRNE M.D. Performed By: #### B MP, MG, A1C WT eA #### [facility] [address] Magnesium [Mass/volume] in S mary or PlasmaOrdered By: Yakov To on 02-14-2023 Magnesium [Mass/Vol] 2.4 mg/dL 1.9-2.7 [facility] No Panel InformationOrdered By: Yakov To on 02-14-2023 Pharmacy Creatinine Clearance (Chem 49.22 [facility] Platelet poor plasma interna tional normalized ratio (INR) by coagulation assay (relatOrdered By: Yakov To on 02-14-2023 INR Coag (PPP) [Relative time] 2.2 {INR} [facility] Comment on above: INR Therapeutic Rang [...] 02-14-2023 Potassium [Moles/Vol] 3.7 mmol/L Normal 3.5-5.1 [facility] Comment on above: Result Comment: PERF ORMED BY: [place] [address] PATHOLOGIST VOICE TEACHER RAFA BYRNE M.D. Performed By: #### K #### [facility] [address] [place] [address] Potassium [Moles/Vol] 3.4 mmol/L Low 3.5-5.1 [facility] Comment on above: Result Comment: PERF ORMED BY: [place] [address] PATHOLOGIST VOICE TEACHER RAFA BYRNE M.D. Performed By: #### K #### [facility] [address] [place] [address] Potassium [Moles/volume] in Serum or PlasmaOrdered By: Yakov To on 02-14-2023 Potassium [Moles/Vol] 3.7 mmol/L 3.5-5.1 [facility] Prothrombin Time INRon 02-14 INR Coag (PPP) [Relative time] 2.2 {INR} Normal [facility] Comment on above: Result Comment: INR [...] heart valves: 3 - 4.5 PERFORMED BY: [place] [address] PATHOLOGIST VOICE TEACHER RAFA BYRNE M.D. Performed By: #### M G #### [facility] [address] PT Coag (PPP) [Time] 25.6 s High 9.0-12.9 [facility] Comment on above: Performed By: #### M G #### [facility] [address] [place] [address] Serum or plasma anion gap de terminationOrdered By: Yakov To on 02-14-2023 Anion gap [Moles/Vol] 13.4 mmol/L 6.0-15.0 [facility] Sodium [Moles/volume] in Ser um or PlasmaOrdered By: Yakov To on 02-14-2023 Sodium [Moles/Vol] 136 mmol/L 136-145 [facility] Comment on above: Delta: 129 on -1648 Urea nitrogen [Mass/volume] in Serum or PlasmaOrdered By: Yakov To on 02-14-2023 Urea nitrogen [Mass/Vol] 43 mg/dL 06-12 [facility] Activated partial thrombopla stin time (aPTT) in platelet poor plasma by coagulation aOrdered By: Angela Aden on 02-13-2023 aPTT Coag (PPP) [Time] 38.3 s 25.1-36.5 [facility] Alanine aminotransferase [En zymatic activity/volume] in Serum or PlasmaOrdered By: Angela Aden on 02-13-2023 ALT [Catalytic activity/Vol] 21 U/L [facility] Albumin [Mass/volume] in Ser um or Plasma by Bromocresol green (BCG) dye binding methoOrdered By: Angela Aden on 02-13-2023 Albumin BCG dye [Mass/Vol] 4.3 g/dL 3.5-5.7 [facility] Alkaline phosphatase [Enzyma tic activity/volume] in Serum or PlasmaOrdered By: Angela Aden on 02-13-2023 ALP [Catalytic activity/Vol] 98 U/L 34-104 [facility] Arterial Blood Gason 023 ABG Base Excess 5.2 mmol/L High -3.0-3.0 [facility] Comment on above: Performed By: #### M G #### [facility] [address] [place] [address] ABG Frac Inspired O2 21 % Normal [facility] Comment on above: Performed By: #### M G #### [facility] [address] [place] [address] ABG Oxygen Content 9.0 mmol/L Normal 6.6-9.7 [facility] Comment on above: Performed By: #### M G #### [facility] [address] [place] [address] ABG Oxygen Saturation 83.4 % Low 95.0-100.0 [facility] Comment on above: Performed By: #### M G #### [facility] [address] [place] [address] ABG PCO2 49.4 mm[Hg] High 35.0-45.0 [facility] Comment on above: Performed By: #### M G #### [facility] [address] [place] [address] ABG PH 7.42 Normal 7.35-7.45 [facility] Comment on above: Performed By: #### M G #### [facility] [address] [place] [address] ABG PO2 48.2 mm[Hg] Off scale low 80.0-100.0 [facility] Comment on above: Performed By: #### M G #### [address] CO2 [Moles/Vol] 32.7 mmol/L High 23.0-27.0 [facility] Comment on above: Performed By: #### M G #### [address] HCO3 (Bld) [Moles/Vol] 31.2 mmol/L High 23.0-29.0 [facility] Comment on above: Performed By: #### M G #### [facility] [address] [place] [address] Respiratory Critical Normal [facility] Comment on above: Result Comment: Crit ical Value called on: 02/13/2023 at 17:04 PERFORMED BY: [place] [address] PATHOLOGIST VOICE TEACHER RAFA BYRNE M.D. Performed By: #### M G #### [facility] [address] [place] [address] VBG Draw Site Venous Normal [facility] Comment on above: Performed By: #### M G #### [facility] [address] [place] [address] Aspartate aminotransferase [ Enzymatic activity/volume] in Serum or PlasmaOrdered By: Angela Aden on 02-13-2023 AST [Catalytic activity/Vol] 32 U/L 13-39 [facility] Basophils Auto (Bld) [#/Vol] Ordered By: Angela Aden on 02-13-2023 Basophils (Bld) [#/Vol] 0.1 10*3/uL 0.0-0.2 [facility] Basophils/100 WBC Auto (Bld) Ordered By: Angela Aden on 02-13-2023 Basophils/100 WBC (Bld) 0.6 % . [facility] Beta Hydroxybuterateon 02-13 Beta Hydroxybuterate 0.10 mmol/L Normal 0.02-0.27 [facility] Comment on above: Result Comment: PERF ORMED BY: [address] [place] [address] PATHOLOGIST VOICE TEACHER RAFA BYRNE M.D. Performed By: #### M G #### [facility] [address] [place], [place] [id number] [facility] Beta hydroxybutyrate [Moles/ volume] in Serum or PlasmaOrdered By: Angela Aden on 02-13-2023 Beta hydroxybutyrate [Moles/Vol] 0.10 mmol/L 0.02-0.27 [facility] Bilirubin Test strip Ql (U)O rdered By: Angela Aden on 02-13-2023 Bilirubin Ql (U) Negative Negative [facility] Bilirubin.total [Mass/volume ] in Serum or PlasmaOrdered By: Angela Aden on 02-13-2023 Bilirubin [Mass/Vol] 1.3 mg/dL 0.3-1.0 [facility] Comment on above: Samples from patient s who have taken Naproxen have shown spurious elevation in Total Bilirubin levels. A metabolite of Naproxen, O-desmethylnaproxen, has been shown to interfere with the Jesi-Ananya method for measuring Total Bilirubin. CT head/brain wo conon 02-13 CT head/brain wo con [facility] [place] [address] CT Scan Report Signed Patient: Adwoa Porter MR#: [id number] 7 : 1955 Acct:[id number] Age/Sex: 67 / M ADM Date: 02/13/23 Loc: ER Room: Type: [facility] ER Attending Dr: Copies to: Angela Aden [...] Archana Perez M.D.02/13/2023 5:28 PM Dictation Location: [place] [address] Transcribed By: [facility] 02/13/231727 Dictated By: Archana Perez MD 02/13/231722 Signed By: 02/13/23 172 Normal [facility] Calcium [Mass/volume] in Ser um or PlasmaOrdered By: Angela Aden on 02-13-2023 Calcium [Mass/Vol] 9.3 mg/dL 8.6-10.3 [facility] Carbon dioxide, total [Moles /volume] in Serum or PlasmaOrdered By: Angela Aden on 02-13-2023 CO2 [Moles/Vol] 31.6 mmol/L 21.0-31.0 [facility] Chloride [Moles/volume] in S mary or PlasmaOrdered By: Angela Aden on 02-13-2023 Chloride [Moles/Vol] 85 mmol/L 98-107 [facility] Color Auto (U)Ordered By: Miguel Aden on 02-13-2023 Color (U) Yellow Yellow [facility] Complete Blood Count Auto Di ffon 02-13-2023 Basophils (Bld) [#/Vol] 0.1 10*3/uL Normal 0.0-0.2 [facility] Comment on above: Result Comment: PERF ORMED BY: [place] [address] PATHOLOGIST VOICE TEACHER RAFA BYRNE M.D. Performed By: #### M G #### [facility] [address] Basophils/100 WBC (Bld) 0.6 % Normal . [facility] Comment on above: Performed By: #### M G #### [facility] [address] Eosinophils (Bld) [#/Vol] 0.4 10*3/uL Normal 0.0-0.45 [facility] Comment on above: Performed By: #### M G #### [address] Eosinophils/100 WBC (Bld) 2.9 % Normal . [facility] Comment on above: Performed By: #### M G #### [address] Erythrocyte distribution width (RBC) [Ratio] 17.9 % High 12.0-14.8 [facility] Comment on above: Performed By: #### M G #### [address] Hematocrit (Bld) [Volume fraction] 48.8 % Normal 38.8-50.0 [facility] Comment on above: Performed By: #### M G #### [address] Hemoglobin (Bld) [Mass/Vol] 16.6 g/dL Normal 13.0-17.0 [facility] Comment on above: Performed By: #### M G #### [address] Lymphocytes (Bld) [#/Vol] 2.1 10*3/uL Normal 1.00-4.8 [facility] Comment on above: Performed By: #### M G #### [address] Lymphocytes/100 WBC (Bld) 17.7 % Normal . [facility] Comment on above: Performed By: #### M G #### [address] MCH (RBC) [Entitic mass] 29.0 pg Normal 27.5-35.2 [facility] Comment on above: Performed By: #### M G #### [address] MCV (RBC) [Entitic vol] 85.2 fL Normal 83.5-101 [facility] Comment on above: Performed By: #### M G #### [address] [place] [address] [place] Mean Corpuscular HGB Conc 34.0 g/dL Normal 32.5-35.6 [facility] Comment on above: Performed By: #### M G #### [address] Monocytes (Bld) [#/Vol] 1.0 10*3/uL High 0.0-0.8 [facility] Comment on above: Performed By: #### M G #### [address] Monocytes/100 WBC (Bld) 19.79 % Normal 0.00-20.00 [facility] Comment on above: Performed By: #### M G #### [address] Monocytes/100 WBC (Bld) 8.0 % Normal . [facility] Comment on above: Performed By: #### M G #### [address] Neutrophils (Bld) [#/Vol] 8.5 10*3/uL High 1.8-7.7 [facility] Comment on above: Performed By: #### M G #### [address] Neutrophils/100 WBC (Bld) 70.8 % Normal . [facility] Comment on above: Performed By: #### M G #### [address] NRBC% 0.1 /100{WBC} Normal 0-0.5 [facility] Comment on above: Performed By: #### M G #### [address] Platelet mean volume (Bld) [Entitic vol] 8.6 fL Normal 6.6-10.1 [facility] Comment on above: Performed By: #### M G #### [place] [address] [place] Platelets (Bld) [#/Vol] 218 10*3/uL Normal 150-450 [facility] Comment on above: Performed By: #### M G #### [facility] [address] [place] [address] RBC (Bld) [#/Vol] 5.72 10*6/uL High 3.90-5.60 [facility] Comment on above: Performed By: #### M G #### [facility] [address] [place] [address] WBC (Bld) [#/Vol] 12.0 10*3/uL High 4.1-10.5 [facility] Comment on above: Performed By: #### M G #### [address] Comprehensive Metabolic Pane david 02-13-2023 Albumin [Mass/Vol] 4.3 g/dL Normal 3.5-5.7 [facility] Comment on above: Performed By: #### M G #### [address] Albumin/Globulin [Mass ratio] 1.2 {ratio} Normal [facility] Comment on above: Performed By: #### M G #### [address] ALP [Catalytic activity/Vol] 98 U/L Normal 34-104 [facility] Comment on above: Performed By: #### M G #### [facility] [address] [place] [address] ALT [Catalytic activity/Vol] 21 U/L Normal 7-52 [facility] Comment on above: Performed By: #### M G #### [address] Anion gap [Moles/Vol] 15.3 mmol/L High 6.0-15.0 [facility] Comment on above: Performed By: #### M G #### [address] AST [Catalytic activity/Vol] 32 U/L Normal 13-39 [facility] Comment on above: Performed By: #### M G #### [address] Bilirubin [Mass/Vol] 1.3 mg/dL High 0.3-1.0 [facility] Comment on above: Result Comment: Samp les from patients who have taken Naproxen have shown spurious elevation in Total Bilirubin levels. A metabolite of Naproxen, O-desmethylnaproxen, has been shown to interfere with the Jendrassik-Grof method for measuring Total Bilirubin. Performed By: #### M G #### [address] Calcium [Mass/Vol] 9.3 mg/dL Normal 8.6-10.3 [facility] Comment on above: Performed By: #### M G #### [address] Chloride [Moles/Vol] 85 mmol/L Low 98-107 [facility] Comment on above: Performed By: #### M G #### [address] CO2 [Moles/Vol] 31.6 mmol/L High 21.0-31.0 [facility] Comment on above: Performed By: #### M G #### [address] Creatinine [Mass/Vol] 2.06 mg/dL High 0.70-1.30 [facility] Comment on above: Performed By: #### M G #### [place] [address] [place] Creatinine Clr Calc Pharmacy 39.26 [facility] Comment on above: Performed By: #### M G #### [place] [address] [place] GFR/1.73 sq M.predicted MDRD (S/P/Bld) [Vol rate/Area] 34.441 mL/min/{1.73_m2} [facility] Comment on above: Performed By: #### M G #### [address] [address] [place] Globulin (S) [Mass/Vol] 3.6 g/dL Normal [facility] Comment on above: Performed By: #### M G #### [address] Glucose [Mass/Vol] 400 mg/dL High 70-100 [facility] Comment on above: Result Comment: [facility] Glucose Reference Range is dependent on time and content of last meal. Glucose of more than 200 mg/dL in a nonstressed, ambulatory subject supports the diagnosis of Diabetes Mellitus. ADA recommended reference range Performed By: #### M G #### [address] Potassium [Moles/Vol] 2.9 mmol/L Off scale low 3.5-5.1 [facility] Comment on above: Result Comment: Hemo lysis is present at a level that could interfere with the result. Performed By: #### M G #### [address] Protein [Mass/Vol] 7.9 g/dL Normal 6.4-8.9 [facility] Comment on above: Performed By: #### M G #### [address] Sodium [Moles/Vol] 129 mmol/L Low 136-145 [facility] Comment on above: Performed By: #### M G #### [facility] [address] [place] [address] [place] Urea nitrogen [Mass/Vol] 53 mg/dL High 7-25 [facility] Comment on above: Performed By: #### M G #### [facility] [address] [place] [address] [place] Creatinine [Mass/volume] in Serum or PlasmaOrdered By: Angela Aden on 02-13-2023 Creatinine [Mass/Vol] 2.06 mg/dL 0.70-1.30 [facility] ECG 12 lead ECGon 02-13-2023 ECG 12 lead ECG [facility] [place] [address] [place] [address] Electrocardiograph Report Signed Patient: Adwoa Porter MR#: [id number] 7 : 1955 Acct:[id number] Age/Sex: 67 / M ADM Date: 02/13/23 Loc: Room: [address] [place] [address] Type: ADM IN Attending Dr: Yakov To [...] Bifascicular block Confirmed by Alejandro DUNCAN DO ([id number]) on 02/13/2023 10:10:19 PM Referred By: Electronically Signed By:Alejandro DUNCAN DO Transcribed By: MUS Signed By Alejandro Duncan DO 0 02/13/23 2210 Normal [facility] Eosinophils Auto (Bld) [#/Vo l]Ordered By: Angela Aden on 02-13-2023 Eosinophils (Bld) [#/Vol] 0.4 10*3/uL 0.0-0.45 [facility] Eosinophils/100 WBC Auto (Bl d)Ordered By: Angela Aden on 02-13-2023 Eosinophils/100 WBC (Bld) 2.9 % . [facility] Erythrocyte distribution wid th Auto (RBC) [Ratio]Ordered By: Angela Aden on 02-13-2023 Erythrocyte distribution width (RBC) [Ratio] 17.9 % 12.0-14.8 [facility] Globulin Calc (S) [Mass/Vol] Ordered By: Angela Aden on 02-13-2023 Globulin (S) [Mass/Vol] 3.6 g/dL [facility] Glucose Glucometer (BldC) [M ass/Vol]Ordered By: Yakov To on 02-13-2023 Glucose [Mass/Vol] 216 mg/dL [facility] Comment on above: Random Glucose Refer ence Range is dependent on time and content of last meal. Glucose of more than 200 mg/dL in a nonstressed, ambulatory subject supports the diagnosis of Diabetes Mellitus. Glucose Poct Glucometerson 0 02-13-2023 Glucose [Mass/Vol] 76 mg/dL Normal [facility] Comment on above: Result Comment: [place] om Glucose Reference Range is dependent on time and content of last meal. Glucose of more than 200 mg/dL in a nonstressed, ambulatory subject supports the diagnosis of Diabetes Mellitus. PERFORMED BY: [facility] [address] [facility] [place] [address] PATHOLOGIST VOICE TEACHER RAFA BYRNE M.D. Performed By: #### G LULS #### Point of Care testing , Commemt1 Normal [facility] Comment on above: Result Comment: Glu2 : WILL NOTIFY DR/RN PERFORMED BY: [facility] [address] [place] [address] PATHOLOGIST VOICE TEACHER RAFA BYRNE M.D. Performed By: #### G LULS #### Point of Care testing , Glucose [Mass/Vol] 560 mg/dL Off scale high [facility] Comment on above: Result Comment: [place] [facility] Glucose Reference Range is dependent on time and content of last meal. Glucose of more than 200 mg/dL in a nonstressed, ambulatory subject supports the diagnosis of Diabetes Mellitus. Performed By: #### G LULS #### Point of Care testing , Glucose [Mass/volume] in Ser um or PlasmaOrdered By: Angela Aden on 02-13-2023 Glucose [Mass/Vol] 400 mg/dL 70-100 [facility] Comment on above: ADA recommended refe rence rangeRandom Glucose Reference Range is dependent on time and content of last meal. Glucose of more than 200 mg/dL in a nonstressed, ambulatory subject supports the diagnosis of Diabetes Mellitus. Hematocrit Auto (Bld) [Volum e fraction]Ordered By: Angela Aden on 02-13-2023 Hematocrit (Bld) [Volume fraction] 48.8 % 38.8-50.0 [facility] Hemoglobin [Mass/volume] in BloodOrdered By: Angela Aden on 02-13-2023 Hemoglobin (Bld) [Mass/Vol] 16.6 g/dL 13.0-17.0 [facility] Ketones Auto test strip (U) [Mass/Vol]Ordered By: Angela Aden on 02-13-2023 Ketones (U) [Mass/Vol] Negative Negative [facility] Laboratory - Chemistry and C hemistry - challengeOrdered By: Angela Aden on 02-13-2023 CO2 [Moles/Vol] 32.7 mmol/L 23.0-27.0 [facility] HCO3 (Bld) [Moles/Vol] 31.2 mmol/L 23.0-29.0 [facility] GFR/1.73 sq M.predicted MDRD (S/P/Bld) [Vol rate/Area] 34.441 mL/min/{1.73_m2} [facility] - CoagulationOrde red By: Angela Aden on 02-13-2023 PT Coag (PPP) [Time] 26.1 s 9.0-12.9 [facility] Leukocytes [#/volume] correc morris for nucleated erythrocytes in Blood by Automated counOrdered By: Angela Aden on 02-13-2023 WBC corrected for nucl RBC Auto (Bld) [#/Vol] 12.0 10*3/uL 4.1-10.5 [facility] Lymphocytes Auto (Bld) [#/Vo l]Ordered By: Angela Aden on 02-13-2023 Lymphocytes (Bld) [#/Vol] 2.1 10*3/uL 1.00-4.8 [facility] Lymphocytes/100 WBC Auto (Bl d)Ordered By: Angela Aden on 02-13-2023 Lymphocytes/100 WBC (Bld) 17.7 % . [facility] MCH Auto (RBC) [Entitic mass ]Ordered By: Angela Aden on 02-13-2023 MCH (RBC) [Entitic mass] 29.0 pg 27.5-35.2 [facility] MCHC Auto (RBC) [Mass/Vol]Or dered By: Angela Aden on 02-13-2023 MCHC (RBC) [Mass/Vol] 34.0 g/dL 32.5-35.6 [facility] MCV Auto (RBC) [Entitic vol] Ordered By: Angela Aden on 02-13-2023 MCV (RBC) [Entitic vol] 85.2 fL 83.5-101 [facility] Magnesiumon 02-13-2023 Magnesium [Mass/Vol] 2.5 mg/dL Normal 1.9-2.7 [facility] Comment on above: Order Comment: Comme nt add on if possible Result Comment: PERF ORMED BY: [place] [address] PATHOLOGIST VOICE TEACHER RAFA BYRNE M.D. Performed By: #### M G #### [address] Magnesium [Mass/volume] in S mary or PlasmaOrdered By: Yakov To on 02-13-2023 Magnesium [Mass/Vol] 2.5 mg/dL 1.9-2.7 [facility] Monocyte distribution width [Entitic volume] in Blood by AutomatedOrdered By: Angela Aden on 02-13-2023 Monocyte distribution width Auto (Bld) [Entitic vol] 19.79 % 0.00-20.00 [facility] Monocytes Auto (Bld) [#/Vol] Ordered By: Angela Aden on 02-13-2023 Monocytes (Bld) [#/Vol] 1.0 10*3/uL 0.0-0.8 [facility] Monocytes/100 WBC Auto (Bld) Ordered By: Angela Aden on 02-13-2023 Monocytes/100 WBC (Bld) 8.0 % . [facility] Neutrophils Auto (Bld) [#/Vo l]Ordered By: Angela Aden on 02-13-2023 Neutrophils (Bld) [#/Vol] 8.5 10*3/uL 1.8-7.7 [facility] Neutrophils/100 WBC Auto (Bl d)Ordered By: Angela Aden on 02-13-2023 Neutrophils/100 WBC (Bld) 70.8 % . [facility] Nitrite Test strip Ql (U)Ord ered By: Angela Aden on 02-13-2023 Nitrite Ql (U) Negative Negative [facility] No Panel InformationOrdered By: Angela Aden on 02-13-2023 Arterial Blood Base Excess 5.2 mmol/L -3.0-3.0 [facility] Arterial Blood Oxygen Content 9.0 mmol/L 6.6-9.7 [facility] Arterial Blood Oxygen Saturation 83.4 % 95.0-100.0 [facility] Arterial Blood Partial Pressure CO2 49.4 mm[Hg] 35.0-45.0 [facility] Arterial Blood Partial Pressure O2 48.2 mm[Hg] 80.0-100.0 [facility] Arterial Blood pH 7.42 7.35-7.45 [facility] Blood Gas Critical Value See comment [facility] Comment on above: Critical Value rdz d on: 02/13/2023 at 17:04 Blood Gas Sample Site Venous [facility] FiO2 21 % [facility] Creatinine Clearance (Chem 39.26 [facility] Bedside Glucose Comment See comment [facility] Comment on above: Glu2: WILL NOTIFY DR /RN Nucleated erythrocytes [Pres ence] in Blood by Automated countOrdered By: Angela Aden on 02-13-2023 Nucleated RBC Auto Ql (Bld) 0.1 /100{WBC} 0-0.5 [facility] Partial Thromboplastin Timeo n 02-13-2023 aPTT Coag (Bld) [Time] 38.3 s High 25.1-36.5 [facility] Comment on above: Result Comment: PERF ORMED BY: [place] [address] PATHOLOGIST VOICE TEACHER RAFA BYRNE M.D. Performed By: #### M G #### [address] Platelet mean volume Auto (B ld) [Entitic vol]Ordered By: Angela Aden on 02-13-2023 Platelet mean volume (Bld) [Entitic vol] 8.6 fL 6.6-10.1 [facility] Platelet poor plasma interna tional normalized ratio (INR) by coagulation assay (relatOrdered By: Angela Aden on 02-13-2023 INR Coag (PPP) [Relative time] 2.3 {INR} [facility] Comment on above: INR Therapeutic Rang [...] 02-13-2023 Platelets (Bld) [#/Vol] 218 10*3/uL 150-450 [facility] Potassium [Moles/volume] in Serum or PlasmaOrdered By: Angela Aden on 02-13-2023 Potassium [Moles/Vol] 2.9 mmol/L 3.5-5.1 [facility] Comment on above: Hemolysis is present at a level that could interfere with the result. Protein Auto test strip (U) [Mass/Vol]Ordered By: Angela Aden on 02-13-2023 Protein (U) [Mass/Vol] Negative Negative [facility] Protein [Mass/volume] in Ser um or PlasmaOrdered By: Angela Aden on 02-13-2023 Protein [Mass/Vol] 7.9 g/dL 6.4-8.9 [facility] Prothrombin Time INRon 02-13 INR Coag (PPP) [Relative time] 2.3 {INR} Normal [facility] Comment on above: Result Comment: INR [...] 4.5 Performed By: #### M G #### [facility] [address] PT Coag (PPP) [Time] 26.1 s High 9.0-12.9 [facility] Comment on above: Performed By: #### M G #### [facility] [address] RBC Auto (Bld) [#/Vol]Ordere d By: Angela Aden on 02-13-2023 RBC (Bld) [#/Vol] 5.72 10*6/uL 3.90-5.60 [facility] Serum or plasma albumin/glob ulin mass ratioOrdered By: Angela Aden on 02-13-2023 Albumin/Globulin [Mass ratio] 1.2 {ratio} [facility] Serum or plasma anion gap de terminationOrdered By: Angela Aden on 02-13-2023 Anion gap [Moles/Vol] 15.3 mmol/L 6.0-15.0 [facility] Sodium [Moles/volume] in Ser um or PlasmaOrdered By: Angela Aden on 02-13-2023 Sodium [Moles/Vol] 129 mmol/L 136-145 [facility] Specific gravity Auto test s trip (U) [Rel density]Ordered By: Angela Aden on 02-13-2023 Specific gravity (U) [Rel density] 1.018 1.001-1.03 0 [facility] Troponin I High Sensitivityo n 02-13-2023 Troponin I High Sensitivity 69.4 pg/mL Off scale high 0.0-20.0 [facility] Comment on above: Result Comment: Crit ical Result : Called to and read back by: PROMISE VIEIRA at: 02/13/2023 18:35:16 by:[id number] PERFORMED BY: [place] [address] PATHOLOGIST VOICE TEACHER RAFA BYRNE M.D. Performed By: #### M G #### [facility] [address] [place] [address] Troponin I.cardiac [Mass/vol ume] in Serum or Plasma by Detection limit <= 0.01 ng/Ordered By: Angela Aden on 02-13-2023 Troponin I.cardiac DL <= 0.01 ng/mL [Mass/Vol] 69.4 pg/mL 0.0-20.0 [facility] Comment on above: Critical Result : Ca lled to and read back by: PROMISE VIEIRA at: 02/13/2023 18:35:16 by:[id number] Urea nitrogen [Mass/volume] in Serum or PlasmaOrdered By: Angela Aden on 02-13-2023 Urea nitrogen [Mass/Vol] 53 mg/dL 06-12 [facility] Urinalysison 02-13-2023 Appearance (U) Clear Normal Clear [facility] Comment on above: Order Comment: Name Collection Type:: Clean-Voided Midstream Performed By: #### U A #### [facility] [address] [place] [address] Bilirubin,Urine Negative Normal Negative [facility] Comment on above: Order Comment: Name Collection Type:: Clean-Voided Midstream Performed By: #### U A #### [facility] [address] [place] [address] Color (U) Yellow Normal Yellow [facility] Comment on above: Order Comment: Name Collection Type:: Clean-Voided Midstream Performed By: #### U A #### [facility] [address] [place] [address] [place] Glucose Ql (U) >=1000 High Normal [facility] Comment on above: Order Comment: Name Collection Type:: Clean-Voided Midstream Performed By: #### U A #### [facility] [address] [place] [address] [place] Ketones Ql (U) Negative Normal Negative [facility] Comment on above: Order Comment: Name Collection Type:: Clean-Voided Midstream Performed By: #### U A #### [facility] [address] [place] [address] [place] Leukocyte esterase Test strip Ql (U) Negative Normal Negative [facility] Comment on above: Order Comment: Name Collection Type:: Clean-Voided Midstream Performed By: #### U A #### [address] Nitrite,Urine Negative Normal Negative [facility] Comment on above: Order Comment: Name Collection Type:: Clean-Voided Midstream Performed By: #### U A #### [address] Occult Blood,Urine Negative Normal Negative [facility] Comment on above: Order Comment: Name Collection Type:: Clean-Voided Midstream Result Comment: PERF ORMED BY: [place] [address] PATHOLOGIST VOICE TEACHER RAFA BYRNE M.D. Performed By: #### U A #### [address] pH (U) 6.0 [pH] Normal 5.0-9.0 [facility] Comment on above: Order Comment: Name Collection Type:: Clean-Voided Midstream Performed By: #### U A #### [place] [address] [place] Protein,Urine Negative Normal Negative [facility] Comment on above: Order Comment: Name Collection Type:: Clean-Voided Midstream Performed By: #### U A #### [address] Specificy Mccoll,Urine 1.018 Normal 1.001-1.03 0 [facility] Comment on above: Order Comment: Name Collection Type:: Clean-Voided Midstream Performed By: #### U A #### [address] Urobilinogen,Urine Normal Normal Normal [facility] Comment on above: Order Comment: Name Collection Type:: Clean-Voided Midstream Performed By: #### U A #### [address] Urine clarity by refractomet ry automatedOrdered By: Angela Aden on 02-13-2023 Clarity Refractometry automated (U) Clear Clear [facility] Urine glucose measurement by automated test strip (mass/volume)Ordered By: Angela Aden on 02-13-2023 Glucose Auto test strip (U) [Mass/Vol] >=1000 mg/dL Normal [facility] Urine hemoglobin detection b y automated test stripOrdered By: Angela Aden on 02-13-2023 Hemoglobin Auto test strip Ql (U) Negative Negative [facility] Urine leukocyte esterase det ection by automated test stripOrdered By: Angela Aden on 02-13-2023 Leukocyte esterase Auto test strip Ql (U) Negative Negative [facility] Urobilinogen Auto test strip (U) [Mass/Vol]Ordered By: Angela Aden on 02-13-2023 Urobilinogen (U) [Mass/Vol] Normal mg/dL Normal [facility] WBC Auto (Bld) [#/Vol]Ordere d By: Angela Aden on 02-13-2023 WBC (Bld) [#/Vol] 12.0 10*3/uL 4.1-10.5 [facility] XR chest 2V*on 02-13-2023 XR chest 2V* [facility] [address] XRay Report Signed Patient: Adwoa Porter MR#: [id number] 7 : 1955 Acct:[id number] Age/Sex: 67 / M ADM Date: 02/13/23 Loc: ER Room: Type: [facility] ER Attending Dr: Copies to: Angela Aden [...] Archana Perez M.D.02/13/2023 5:39 PM Dictation Location: [place] [address] Transcribed By: [facility] 02/13/231738 Dictated By: Archana Perez MD 02/13/231734 Signed By: 02/13/231738 Normal [facility] pH Auto test strip (U)Ordere d By: Angela Aden on 02-13-2023 pH (U) 6.0 [pH] 5.0-9.0 [facility] BNPon 01-29-2023 Natriuretic peptide B (Bld) [Mass/Vol] 6099.0 pg/mL Critically high <=900.0 [facility] Comment on above: Performed By: #### C MP, BNP ####[facility] [address] [place], [place] [address]Dr. Emelina Navarro CBC AUTO DIFFon 01-29-2023 BASO # 0.1 103/ul Normal 0.0-0.1 [facility] Comment on above: Performed By: #### C BC ####[facility] [address] [place], [place] [address]Dr. Emelina Navarro Basophils/100 WBC (Bld) 0.3 % Normal 0.2-2.0 [facility] Comment on above: Performed By: #### C BC ####[facility] [address] [place], [place] [address]Dr. Emelina Navarro EO # 0.3 103/ul Normal 0.0-0.7 [facility] Comment on above: Performed By: #### C BC ####[facility] [address] [place], [place] [address]Dr. Emelina Ramon Eosinophils/100 WBC (Bld) 1.9 % Normal 0.9-7.0 [facility] Comment on above: Performed By: #### C BC ####[facility] [address] [place], [place] [address]Dr. Emelina Navarro Erythrocyte distribution width (RBC) [Ratio] 18.5 % Critically high 11.0-15.0 [facility] Comment on above: Performed By: #### C BC ####[facility] [address] [place] [address]Dr. Emelina Navarro Hematocrit (Bld) [Volume fraction] 49.7 % Normal 42.0-54.0 [facility] Comment on above: Performed By: #### C BC ####[facility] [address] [place] [address]Dr. Emelina Ramon Hemoglobin (Bld) [Mass/Vol] 16.3 g/dL Normal 14.0-18.0 [facility] Comment on above: Performed By: #### C BC ####[facility] [address]bug[address] [place] [address]Dr. Emelina Navarro IG # 0.07 10e3/ul Critically high 0.00-0.03 [facility] Comment on above: Performed By: #### C BC ####[facility] Dswqjyyjmr[address] [place] [address]Dr. Awildanitza Navarro IG % 0.4 % Normal 0.0-0.5 [facility] Comment on above: Performed By: #### C BC ####[facility] Megcadupbl[address] [place] [address]Dr. Emelina Navarro LYMPH # 2.6 103/ul Normal 1.2-3.8 [facility] Comment on above: Performed By: #### C BC ####[facility] [address]38[address] [place] [address]Dr. Awildanitza Navarro Lymphocytes/100 WBC (Bld) 16.9 % Critically low 20.5-60.0 [facility] Comment on above: Performed By: #### C BC ####[facility] [address]ty[address]ty[address] [place] [address]Dr. Awildanitza Navarro MANUAL DIFF REQ NO Normal [facility] Comment on above: Performed By: #### C BC ####[facility] V[address]lg[address]xsr[address] [place] [address]Dr. Emelina Navarro MCH (RBC) [Entitic mass] 28.4 pg Normal 25.9-34.0 [facility] Comment on above: Performed By: #### C BC ####[facility] Ftfuxdrtrj70[address] [place] [address]Dr. Emelina Navarro MCHC (RBC) [Mass/Vol] 32.8 g/dL Normal 29.9-35.2 [facility] Comment on above: Performed By: #### C BC ####[facility] Ikus[address]csvzr[address] [place] [address]Dr. Emelina Navarro MCV (RBC) [Entitic vol] 86.6 fL Normal 80.0-94.0 [facility] Comment on above: Performed By: #### C BC ####[facility] [address]xtlzgzzn7[address] [place] [address]Dr. Emelina Navarro MONO # 1.2 103/ul Critically high 0.3-0.8 [facility] Comment on above: Performed By: #### C BC ####[facility] [address] [place], [place] [address]Dr. Emelina Ramon Monocytes/100 WBC (Bld) 7.7 % Normal 1.7-12.0 [facility] Comment on above: Performed By: #### C BC ####[facility] [address] [place], [place] [address]Dr. Emelina Navarro NEUT # 11.4 103/ul Critically high 1.4-6.5 [facility] Comment on above: Performed By: #### C BC ####[facility] [address] [place], [place] [address]Dr. Emelina Ramon Neutrophils/100 WBC (Bld) 72.8 % Normal 43.0-75.0 [facility] Comment on above: Performed By: #### C BC ####[facility] [address] [place], [place] [address]Dr. Emelina Ramon Platelet mean volume (Bld) [Entitic vol] 9.8 fL Normal 9.5-13.5 [facility] Comment on above: Performed By: #### C BC ####[facility] [address] [place], [place] [address]Ho. Emelina Navarro PLT 200 103/ul Normal 150-450 [facility] Comment on above: Performed By: #### C BC ####[facility] [address] [place], [place] [address]Ha. Emelina Navarro RBC 5.74 106/ul Normal 4.70-6.10 [facility] Comment on above: Performed By: #### C BC ####[facility] [address] [place], [place] [address]Cx. Emelina Navarro WBC 15.6 103/ul Critically high 4.0-11.0 [facility] Comment on above: Performed By: #### C BC ####[facility] [address]ph[address] [place] [id number]. Emelina Navarro DIGOXINon 01-29-2023 DIG 1.1 ng/mL Normal 0.9-2.0 [facility] Comment on above: Performed By: #### D IG ####[facility] [address] [place] [id number]. Emelina Navarro Office Visiton 01-29-2023 Follow-up visit [id number] Adwoa Porter 1955 M Date Provider Department Center 01/29/2023 SUSHIL CAO [facility] Family History Problem Relation Age of Onset Diabetes Mother Hypertension Mother Coronary artery disease Mother Family Status - Relation Status Age at Mother Level of Service:[address] [place] OFFICE/OUTPATIENT ESTABLISHED MOD MDM 30-39 MIN Reason for Visit and Comments: Atrial Fibrillation [80] Coronary Artery Disease [187] Congestive Heart Failure [127] Normal [facility] PROF 14(COMP METB)on 023 Albumin [Mass/Vol] 3.8 g/dL Normal 3.4-5.0 [facility] Comment on above: Performed By: #### C MP, BNP ####[facility] Xdbmalxxlx[address] [place] [id number]. Emelina Navarro Albumin/Globulin [Mass ratio] 0.9 {ratio} Normal [facility] Comment on above: Performed By: #### C MP, BNP ####[facility] Ytwprszokh[address] [place] [address]Dr. Emelina Navarro ALP [Catalytic activity/Vol] 126 U/L Critically high 46-116 [facility] Comment on above: Performed By: #### C MP, BNP ####[facility] Kpvtbqguee4538 [place] [address]Dr. Emelina Navarro ALT [Catalytic activity/Vol] 29 U/L Normal 16-63 [facility] Comment on above: Performed By: #### C MP, BNP ####[facility] [address]fw[address] [place], [place] [address]Dr. Emelina Navarro Anion gap [Moles/Vol] 12.2 mmol/L Normal [facility] Comment on above: Performed By: #### C MP, BNP ####[facility] [address]kt[address] [place], [place] [address]Dr. Awildanitza Navarro AST [Catalytic activity/Vol] 28 U/L Normal 15-37 [facility] Comment on above: Performed By: #### C MP, BNP ####[facility] [address]xd[address] [place], [place] [address]Dr. Emelina Navarro Bilirubin [Mass/Vol] 1.8 mg/dL Critically high 0.2-1.0 [facility] Comment on above: Performed By: #### C MP, BNP ####[facility] [address]ids[address] [place], [place] [address]Dr. Emelina Ramon Calcium [Mass/Vol] 9.9 mg/dL Normal 8.5-10.1 [facility] Comment on above: Performed By: #### C MP, BNP ####[facility] [address]pss[address] [place], [place] [address]Dr. Emelina Navarro Chloride [Moles/Vol] 96 mmol/L Critically low 98-107 [facility] Comment on above: Performed By: #### C MP, BNP ####[facility] Xmltoiqoze[address] [place], [place] [address]Dr. Emelina Navarro CO2 [Moles/Vol] 33.6 mmol/L Critically high 21.0-32.0 [facility] Comment on above: Performed By: #### C MP, BNP ####[facility] Mglffcvndp7267 [place] [address]Dr. Emelina Navarro Creatinine [Mass/Vol] 1.66 mg/dL Critically high 0.70-1.30 [facility] Comment on above: Performed By: #### C MP, BNP ####[facility] Aimzmtyniv9982 [place] [address]Dr. Emelina Navarro EGFR-AF ZIMBABWEAN 50 mL/min/1.73m2 Critically low >=60 [facility] Comment on above: Performed By: #### C MP, BNP ####[facility] [address] [place], [place] [address]Dr. Emelina Navarro EGFR-NON AF ZIMBABWEAN 41 mL/min/1.73m2 Critically low >=60 [facility] Comment on above: Performed By: #### C MP, BNP ####[facility] Q[address] [place], [place] [address]Dr. Emelina Navarro Globulin (S) [Mass/Vol] 4.3 g/dL Normal [facility] Comment on above: Performed By: #### C MP, BNP ####[facility] Ezhicupimn[address] [place], [place] [address]Dr. Emelina Navarro Glucose [Mass/Vol] 218 mg/dL Critically high 74-106 [facility] Comment on above: Performed By: #### C MP, BNP ####[facility] [address] [place], [place] [address]Dr. Emelina Navarro Potassium [Moles/Vol] 4.8 mmol/L Normal 3.5-5.1 [facility] Comment on above: Performed By: #### C MP, BNP ####[facility] [address]kn[address] [place], [place] [address]Dr. Emelina Navarro Protein [Mass/Vol] 8.1 g/dL Normal 6.4-8.2 [facility] Comment on above: Performed By: #### C MP, BNP ####[facility] [address]ais[address]emb[address] [place], [place] [address]Dr. Emelina Navarro Sodium [Moles/Vol] 137 mmol/L Normal 136-145 [facility] Comment on above: Performed By: #### C MP, BNP ####[facility] Dsmmqaddmv1049 [place] [address]Dr. Emelina Navraro Urea nitrogen [Mass/Vol] 31.0 mg/dL Critically high 7.0-18.0 [facility] Comment on above: Performed By: #### C MP, BNP ####[facility] Jbivudlxeq4038 [place] [id number]. Emelina Ramon Urea nitrogen/Creatinine [Mass ratio] 18.7 mg/mg Normal [facility] Comment on above: Performed By: #### C MP, BNP ####[facility] [address]wrxuc[address] [place], [place] [address]Dr. Emelina Navarro 36on 01-15-2023 36 Patient called [...] Any further recommendations? Please advise. Thanks! Normal [facility] BNPon 01-11-2023 Natriuretic peptide B (Bld) [Mass/Vol] 6024.0 pg/mL Critically high <=900.0 [facility] Comment on above: Performed By: #### B ASSEMBLY RIVETER, CMP ####[facility] Wrcwacjylz6[address] [place] [id number]. mEelina Ramon CBC AUTO DIFFon 01-11-2023 BASO # 0.0 103/ul Normal 0.0-0.1 [facility] Comment on above: Performed By: #### C BC ####[facility] Uybuwnqghj7[address] [place] [address]DrWesley Navarro Basophils/100 WBC (Bld) 0.3 % Normal 0.2-2.0 [facility] Comment on above: Performed By: #### C BC ####[facility] Rozabkzcyl[address] [place] [address]Dr. Emelina Navarro EO # 0.4 103/ul Normal 0.0-0.7 [facility] Comment on above: Performed By: #### C BC ####[facility] Soxxdceryx[address] [place], [place] [address]Dr. Emelina Navarro Eosinophils/100 WBC (Bld) 3.3 % Normal 0.9-7.0 [facility] Comment on above: Performed By: #### C BC ####[facility] [address] [place], [place] [address]Dr. Emelina Navarro Erythrocyte distribution width (RBC) [Ratio] 16.7 % Critically high 11.0-15.0 [facility] Comment on above: Performed By: #### C BC ####[facility] Enjoneznii[address] [place], [place] [address]Dr. Emelina Navarro Hematocrit (Bld) [Volume fraction] 41.5 % Critically low 42.0-54.0 [facility] Comment on above: Performed By: #### C BC ####[facility] [address]zsaym[address] [place], [place] [address]Dr. Emelina Navarro Hemoglobin (Bld) [Mass/Vol] 13.8 g/dL Critically low 14.0-18.0 [facility] Comment on above: Performed By: #### C BC ####[facility] [address] [place], [place] [address]DrWesley Navarro IG # 0.04 10e3/ul Critically high 0.00-0.03 [facility] Comment on above: Performed By: #### C BC ####[facility] [address]be[address] [place], [place] [address]Dr. Emelina Navarro IG % 0.3 % Normal 0.0-0.5 [facility] Comment on above: Performed By: #### C BC ####[facility] [address] [place], [place] [address]DrWesley Navarro LYMPH # 1.8 103/ul Normal 1.2-3.8 [facility] Comment on above: Performed By: #### C BC ####[facility] Zyatnbhrwi4232 [place] [address]Dr. Emelina Navarro Lymphocytes/100 WBC (Bld) 15.1 % Critically low 20.5-60.0 [facility] Comment on above: Performed By: #### C BC ####[facility] Jqqrfnlhiu5491 [place] [address]DrWesley Navarro MANUAL DIFF REQ NO Normal [facility] Comment on above: Performed By: #### C BC ####[facility] Pkqaablbnp9183 [place] [address]Dr. Emelina Navarro MCH (RBC) [Entitic mass] 29.0 pg Normal 25.9-34.0 [facility] Comment on above: Performed By: #### C BC ####[facility] [address] [place], [place] [address]Dr. Emelina Navarro MCHC (RBC) [Mass/Vol] 33.3 g/dL Normal 29.9-35.2 [facility] Comment on above: Performed By: #### C BC ####[facility] [address]im[address] [place], [place] [address]DrWesley Navarro MCV (RBC) [Entitic vol] 87.2 fL Normal 80.0-94.0 [facility] Comment on above: Performed By: #### C BC ####[facility] [address]ficc[address] [place], [place] [address]Dr. Emelina Navarro MONO # 0.7 103/ul Normal 0.3-0.8 [facility] Comment on above: Performed By: #### C BC ####[facility] [address]zyn[address] [place], [place] [address]DrWesley Navarro Monocytes/100 WBC (Bld) 5.9 % Normal 1.7-12.0 [facility] Comment on above: Performed By: #### C BC ####[facility] [address]wsi[address] [place], [place] [address]Dr. Emelina Navarro NEUT # 8.9 103/ul Critically high 1.4-6.5 [facility] Comment on above: Performed By: #### C BC ####[facility] Imblynfxcs8385 [place] [address]Dr. Emelina Navarro Neutrophils/100 WBC (Bld) 75.1 % Critically high 43.0-75.0 [facility] Comment on above: Performed By: #### C BC ####[facility] Dmpgazxsnb1662 [place] [address]Dr. Emelina Navarro Platelet mean volume (Bld) [Entitic vol] 11.7 fL Normal 9.5-13.5 [facility] Comment on above: Performed By: #### C BC ####[facility] Gwkmdvprds5183 [place] [address]Dr. Emelina Navarro PLT 124 103/ul Critically low 150-450 [facility] Comment on above: Performed By: #### C BC ####[facility] Kzlbafhlta3522 [place] [address]DrWesley Navarro RBC 4.76 106/ul Normal 4.70-6.10 [facility] Comment on above: Performed By: #### C BC ####[facility] Wvmwbczbxt4865 [place] [address]Dr. Emelina Navarro WBC 11.8 103/ul Critically high 4.0-11.0 [facility] Comment on above: Performed By: #### C BC ####[facility] Irdcezjfen1597 [place] [address]DrWesley Navarro POINT OF CARE GLUCOSEon 12-21 Glucose [Mass/Vol] 339 mg/dL Critically high 74-106 [facility] Comment on above: Performed By: #### P OCGLUC ####[facility] [address] [place], [place] [address]DrWesley Navarro PROF 14(COMP METB)on 023 Albumin [Mass/Vol] 3.3 g/dL Critically low 3.4-5.0 [facility] Comment on above: Performed By: #### B ASSEMBLY RIVETER, CMP ####[facility] Nsndmlwqsv7673 [place] [id number]. Emelina Navarro Albumin/Globulin [Mass ratio] 0.8 {ratio} Normal [facility] Comment on above: Performed By: #### B ASSEMBLY RIVETER, CMP ####[facility] Nbqwwebcrk9230 [place] [id number]. Emelina Navarro ALP [Catalytic activity/Vol] 163 U/L Critically high 46-116 [facility] Comment on above: Performed By: #### B ASSEMBLY RIVETER, CMP ####[facility] Kyowehhqto99[address] [place] [id number]. Emelina Navarro ALT [Catalytic activity/Vol] 27 U/L Normal 16-63 [facility] Comment on above: Performed By: #### B ASSEMBLY RIVETER, CMP ####[facility] Ztwopfiwmt5728 [place] [id number]. Emelina Navarro Anion gap [Moles/Vol] 10.5 mmol/L Normal [facility] Comment on above: Performed By: #### B ASSEMBLY RIVETER, CMP ####[facility] Fzhmxrfnwd2297 [place] [id number]. Emelina Navarro AST [Catalytic activity/Vol] 28 U/L Normal 15-37 [facility] Comment on above: Performed By: #### B ASSEMBLY RIVETER, CMP ####[facility] Bghwslsqqq1201 [place] [id number]. Emelina Navarro Bilirubin [Mass/Vol] 1.3 mg/dL Critically high 0.2-1.0 [facility] Comment on above: Performed By: #### B ASSEMBLY RIVETER, CMP ####[facility] Bfuhmuliyh9647 [place] [id number]. Emelina Navarro Calcium [Mass/Vol] 9.0 mg/dL Normal 8.5-10.1 [facility] Comment on above: Performed By: #### B ASSEMBLY RIVETER, CMP ####[facility] Eabzqaczxx3408 [place] [id number]. Emelina Ramon Chloride [Moles/Vol] 91 mmol/L Critically low 98-107 [facility] Comment on above: Performed By: #### B ASSEMBLY RIVETER, CMP ####[facility] Inehfsmndz7051 [place] [phone]. Emelina Navarro CO2 [Moles/Vol] 32.9 mmol/L Critically high 21.0-32.0 [facility] Comment on above: Performed By: #### B ASSEMBLY RIVETER, CMP ####[facility] [address]hs[address] [place], [place] [address]Dr. Emelina Navarro Creatinine [Mass/Vol] 1.84 mg/dL Critically high 0.70-1.30 [facility] [facility] Comment on above: Performed By: #### B ASSEMBLY RIVETER, CMP ####[facility] Cdkygzvqsd[address] [place], [place] [address]Dr. Emelina Ramon EGFR-AF ZIMBABWEAN 45 mL/min/1.73m2 Critically low >=60 [facility] Comment on above: Performed By: #### B ASSEMBLY RIVETER, CMP ####[facility] Gnbuqtcgri[address] [place], [place] [address]Dr. Emelina Navarro EGFR-NON AF ZIMBABWEAN 37 mL/min/1.73m2 Critically low >=60 [facility] Comment on above: Performed By: #### B ASSEMBLY RIVETER, CMP ####[facility] Irecaxuidi[address] [place], [place] [address]Dr. Emelina Ramon Globulin (S) [Mass/Vol] 4.3 g/dL Normal [facility] Comment on above: Performed By: #### B ASSEMBLY RIVETER, CMP ####[facility] Urujwzylri[address] [place], [place] [address]Dr. Awildanitza Ramon Glucose [Mass/Vol] 305 mg/dL Critically high 74-106 [facility] Comment on above: Performed By: #### B ASSEMBLY RIVETER, CMP ####[facility] Mlzgxlmaah12[address] [place], [place] [address]Dr. Awildanitza Ramon Potassium [Moles/Vol] 3.4 mmol/L Critically low 3.5-5.1 [facility] Comment on above: Performed By: #### B ASSEMBLY RIVETER, CMP ####[facility] Izxapezubz6[address] [place], [place] [address]Dr. Emelina Navarro Protein [Mass/Vol] 7.6 g/dL Normal 6.4-8.2 [facility] Comment on above: Performed By: #### B ASSEMBLY RIVETER, CMP ####[facility] Qimgvatlsq164[address] [place], [place] [address]Dr. Emelina Navarro Sodium [Moles/Vol] 131 mmol/L Critically low 136-145 Th [facility] Comment on above: Performed By: #### B ASSEMBLY RIVETER, CMP ####[facility] Xvqkcklcxr7[address] [place], [place] [address]Dr. Emelina Navarro Urea nitrogen [Mass/Vol] 62.0 mg/dL Critically high 7.0-18.0 [facility] Comment on above: Performed By: #### B ASSEMBLY RIVETER, CMP ####[facility] Tomuyeuwqy94[address] [place], [place] [address]Dr. Emelina Navarro Urea nitrogen/Creatinine [Mass ratio] 33.7 mg/mg Normal [facility] Comment on above: Performed By: #### B ASSEMBLY RIVETER, CMP ####[facility] Siekmniriy[address] [place], [place] [address]Dr. Emelina Navarro BNPon 01-10-2023 Natriuretic peptide B (Bld) [Mass/Vol] 8763.0 pg/mL Critically high <=900.0 [facility] Comment on above: Performed By: #### C MP, BNP ####[facility] Kdxrowtqbq[address] [place], [place] [address]Dr. Emelina Navarro CBC AUTO DIFFon 01-10-2023 BASO # 0.0 103/ul Normal 0.0-0.1 [facility] Comment on above: Performed By: #### C BC ####[facility] Hjzdqbywqo[address] [place], [place] [address]Dr. Emelina Ramon Basophils/100 WBC (Bld) 0.4 % Normal 0.2-2.0 [facility] Comment on above: Performed By: #### C BC ####[facility] Ncipnbvvvb3432[address] [place], [place] [address]Dr. Emelina Navarro EO # 0.3 103/ul Normal 0.0-0.7 [facility] Comment on above: Performed By: #### C BC ####[facility] Lkvlgkoybn[address] [place], [place] [address]Dr. Emelina Navarro Eosinophils/100 WBC (Bld) 2.8 % Normal 0.9-7.0 [facility] Comment on above: Performed By: #### C BC ####[facility] [address] [place] [address]Dr. Emelina Navarro Erythrocyte distribution width (RBC) [Ratio] 17.2 % Critically high 11.0-15.0 [facility] Comment on above: Performed By: #### C BC ####[facility] Ogrfruztay0[address] [place], [place] [address]Dr. Emelina Navarro Hematocrit (Bld) [Volume fraction] 42.1 % Normal 42.0-54.0 [facility] Comment on above: Performed By: #### C BC ####[facility] Xtusivzqtc6[address] [place], [place] [address]Dr. Emelina Navarro Hemoglobin (Bld) [Mass/Vol] 13.3 g/dL Critically low 14.0-18.0 [facility] Comment on above: Performed By: #### C BC ####[facility] Ysbrotvmhx3[address] [place], [place] [address]Dr. Emelina Navarro IG # 0.05 10e3/ul Critically high 0.00-0.03 [facility] Comment on above: Performed By: #### C BC ####[facility] Avncqpmegi[address] [place], [place] [address]Dr. Emelina Navarro IG % 0.4 % Normal 0.0-0.5 [facility] Comment on above: Performed By: #### C BC ####[facility] Tjckvnocio5[address] [place], [place] [address]Dr. Emelina Navarro LYMPH # 1.7 103/ul Normal 1.2-3.8 [facility] Comment on above: Performed By: #### C BC ####[facility] Nigjeqkxxo[address] [place], [place] [address]Dr. Emelina Navarro Lymphocytes/100 WBC (Bld) 14.8 % Critically low 20.5-60.0 [facility] Comment on above: Performed By: #### C BC ####[facility] [address]mg[address] [place] [id number]. Emelina Navarro MANUAL DIFF REQ NO Normal [facility] Comment on above: Performed By: #### C BC ####[facility] Lnweggwbfb216[address] [place] [phone]. Emelina Navarro MCH (RBC) [Entitic mass] 28.4 pg Normal 25.9-34.0 [facility] Comment on above: Performed By: #### C BC ####[facility] Dbzkempjwl6522 [place] [address]Dr. Emelina Navarro MCHC (RBC) [Mass/Vol] 31.6 g/dL Normal 29.9-35.2 [facility] Comment on above: Performed By: #### C BC ####[facility] Fdwlsttfia6[address] [place] [address]Dr. Emelina Navarro MCV (RBC) [Entitic vol] 89.8 fL Normal 80.0-94.0 [facility] Comment on above: Performed By: #### C BC ####[facility] Lkwuendfos72[address] [place] [phone]. Emelina Ramon MONO # 0.9 103/ul Critically high 0.3-0.8 [facility] Comment on above: Performed By: #### C BC ####[facility] Vgwtmirqrn0346 [place] [phone]. Emelina Ramon Monocytes/100 WBC (Bld) 7.6 % Normal 1.7-12.0 [facility] Comment on above: Performed By: #### C BC ####[facility] Tacczikzqw62[address] [place] [phone]. Emelina Navarro NEUT # 8.4 103/ul Critically high 1.4-6.5 [facility] Comment on above: Performed By: #### C BC ####[facility] Qeexbwllep8[address] [place] [phone]. Emelina Ramon Neutrophils/100 WBC (Bld) 74.0 % Normal 43.0-75.0 [facility] Comment on above: Performed By: #### C BC ####[facility] Djgfkerpkp3878 [place] [phone]. Emelina Navarro Platelet mean volume (Bld) [Entitic vol] 11.1 fL Normal 9.5-13.5 [facility] Comment on above: Performed By: #### C BC ####[facility] Zcirdwwxfv3[address] [place] [phone]. Emelina Navarro PLT 111 103/ul Critically low 150-450 [facility] Comment on above: Performed By: #### C BC ####[facility] Lnwixbnmpy1024 [place] [phone]. Emelina Navarro RBC 4.69 106/ul Critically low 4.70-6.10 [facility] Comment on above: Performed By: #### C BC ####[facility] Iqrqapzcpl1019 [place] [address]Dr. Emelina Navarro WBC 11.4 103/ul Critically high 4.0-11.0 [facility] Comment on above: Performed By: #### C BC ####[facility] Iovuvinwff4416 [place] [address]Dr. Emelina Navarro PROF 14(COMP METB)on 023 Albumin [Mass/Vol] 3.3 g/dL Critically low 3.4-5.0 [facility] Comment on above: Performed By: #### C MP, BNP ####[facility] Pythbqywdl82[address] [place] [address]Dr. Emelina Navarro Albumin/Globulin [Mass ratio] 0.8 {ratio} Normal [facility] Comment on above: Performed By: #### C MP, BNP ####[facility] Doorynlzht[address] [place] [address]Dr. Emelina Navarro ALP [Catalytic activity/Vol] 165 U/L Critically high 46-116 [facility] Comment on above: Performed By: #### C MP, BNP ####[facility] Paydgcrlhj3599 [place] [address]Dr. Emelina Navarro ALT [Catalytic activity/Vol] 27 U/L Normal 16-63 [facility] Comment on above: Performed By: #### C MP, BNP ####[facility] Lrlhnzkxsg4921 [place] [address]Dr. Emelina Navarro Anion gap [Moles/Vol] 9.5 mmol/L Normal [facility] Comment on above: Performed By: #### C MP, BNP ####[facility] Odncdmbhch[address] [place] [address]Dr. Emelina Navarro AST [Catalytic activity/Vol] 24 U/L Normal 15-37 [facility] Comment on above: Performed By: #### C MP, BNP ####[facility] Gawqjxvodd[address] [place], [place] [address]Dr. Emelina Navarro Bilirubin [Mass/Vol] 1.3 mg/dL Critically high 0.2-1.0 [facility] Comment on above: Performed By: #### C MP, BNP ####[facility] Gvvheyzngs[address] [place], [place] [address]Dr. Emelina Navarro Calcium [Mass/Vol] 9.3 mg/dL Normal 8.5-10.1 [facility] Comment on above: Performed By: #### C MP, BNP ####[facility] Bksktofqhw5[address] [place], [place] [address]Dr. Emelina Navarro Chloride [Moles/Vol] 93 mmol/L Critically low 98-107 [facility] Comment on above: Performed By: #### C MP, BNP ####[facility] Fymneasekp58[address] [place], [place] [address]Dr. Emelina Navarro CO2 [Moles/Vol] 36.4 mmol/L Critically high 21.0-32.0 [facility] Comment on above: Performed By: #### C MP, BNP ####[facility] Gkwmzpabip35[address] [place], [place] [address]Dr. Emelina Navarro Creatinine [Mass/Vol] 1.99 mg/dL Critically high 0.70-1.30 [facility] Comment on above: Performed By: #### C MP, BNP ####[facility] Movkzeptyo3748[address] [place], [place] [address]Dr. Emelina Navarro EGFR-AF ZIMBABWEAN 41 mL/min/1.73m2 Critically low >=60 [facility] Comment on above: Performed By: #### C MP, BNP ####[facility] Dkmwmjuiik1561 [place] [address]Dr. Emelina Navarro EGFR-NON AF ZIMBABWEAN 34 mL/min/1.73m2 Critically low >=60 [facility] Comment on above: Performed By: #### C MP, BNP ####[facility] Ahoqkggbut2174 [place] [address]Dr. Emelina Navarro Globulin (S) [Mass/Vol] 4.2 g/dL Normal [facility] Comment on above: Performed By: #### C MP, BNP ####[facility] Ensrlctbmo6[address] [place], [place] [address]Dr. Awildanitza Navarro Glucose [Mass/Vol] 311 mg/dL Critically high 74-106 [facility] Comment on above: Performed By: #### C MP, BNP ####[facility] Dggiydleob099[address] [place], [place] [address]Dr. Awildanitza Navarro Potassium [Moles/Vol] 3.9 mmol/L Normal 3.5-5.1 [facility] Comment on above: Performed By: #### C MP, BNP ####[facility] Ctkdtyvykm14[address] [place], [place] [address]Dr. Emelina Navarro Protein [Mass/Vol] 7.5 g/dL Normal 6.4-8.2 [facility] Comment on above: Performed By: #### C MP, BNP ####[facility] Zbzcaykked8925[address] [place], [place] [address]Dr. Emelina Navarro Sodium [Moles/Vol] 135 mmol/L Critically low 136-145 Th [facility] Comment on above: Performed By: #### C MP, BNP ####[facility] Pqwwbpoikc01[address] [place], [place] [address]Dr. Awildanitza Navarro Urea nitrogen [Mass/Vol] 57.0 mg/dL Critically high 7.0-18.0 [facility] Comment on above: Performed By: #### C MP, BNP ####[facility] Yhqkvydypz16[address] [place], [place] [address]Dr. Emelina Navarro Urea nitrogen/Creatinine [Mass ratio] 28.6 mg/mg Normal [facility] Comment on above: Performed By: #### C MP, BNP ####[facility] Igoyzzjqvx7[address] [place], [place] [address]Dr. Emelina Navarro BNPon 01-09-2023 Natriuretic peptide B (Bld) [Mass/Vol] 9097.0 pg/mL Critically high <=900.0 [facility] Comment on above: Performed By: #### B ASSEMBLY RIVETER, CMP ####[facility] Fdacjvlwkv4626[address] [place], [place] [address]Dr. Emelina Navarro CBC AUTO DIFFon 01-09-2023 BASO # 0.0 103/ul Normal 0.0-0.1 [facility] Comment on above: Performed By: #### C BC ####[facility] Vezjgqipix[address] [place], [place] [address]Dr. Emelina Navarro Basophils/100 WBC (Bld) 0.2 % Normal 0.2-2.0 [facility] Comment on above: Performed By: #### C BC ####[facility] Kroggzxyiy[address] [place], [place] [address]Dr. Emelina Navarro EO # 0.2 103/ul Normal 0.0-0.7 [facility] Comment on above: Performed By: #### C BC ####[facility] Vhsqyckyyh6[address] [place], [place] [address]Dr. Emelina Navarro Eosinophils/100 WBC (Bld) 2.1 % Normal 0.9-7.0 [facility] Comment on above: Performed By: #### C BC ####[facility] Fycxymodgw[address] [place], [place] [address]Dr. Emelina Navarro Erythrocyte distribution width (RBC) [Ratio] 17.1 % Critically high 11.0-15.0 [facility] Comment on above: Performed By: #### C BC ####[facility] Lpsipjqben4[address] [place], [place] [address]Dr. Emelina Navarro Hematocrit (Bld) [Volume fraction] 40.5 % Critically low 42.0-54.0 [facility] Comment on above: Performed By: #### C BC ####[facility] Aryhgdmyys28[address] [place] [phone]. Emelina Navarro Hemoglobin (Bld) [Mass/Vol] 13.0 g/dL Critically low 14.0-18.0 [facility] Comment on above: Performed By: #### C BC ####[facility] Hyxoucymzf7741 [place] [phone]. Emelina Navarro IG # 0.06 10e3/ul Critically high 0.00-0.03 [facility] Comment on above: Performed By: #### C BC ####[facility] Qmefznesmi2291 [place] [address]Dr. Emelina Navarro IG % 0.5 % Normal 0.0-0.5 [facility] Comment on above: Performed By: #### C BC ####[facility] Ykotskmmde[address] [place], [place] [address]Dr. Emelina Navarro LYMPH # 1.6 103/ul Normal 1.2-3.8 [facility] Comment on above: Performed By: #### C BC ####[facility] Clsjftmybv8507 [place] [address]Dr. Emelina Navarro Lymphocytes/100 WBC (Bld) 14.1 % Critically low 20.5-60.0 [facility] Comment on above: Performed By: #### C BC ####[facility] Flrvvrlzpq7927 [place] [address]Dr. Emelina Navarro MANUAL DIFF REQ NO Normal [facility] Comment on above: Performed By: #### C BC ####[facility] Meenfcuejc[address] [place], [place] [address]Dr. Emelina Navarro MCH (RBC) [Entitic mass] 28.4 pg Normal 25.9-34.0 [facility] Comment on above: Performed By: #### C BC ####[facility] Kepgomyqaa[address] [place], [place] [address]Dr. Emelina Navarro MCHC (RBC) [Mass/Vol] 32.1 g/dL Normal 29.9-35.2 [facility] Comment on above: Performed By: #### C BC ####[facility] Iinsflckqp5852 [place] [phone]. Emelina Navarro MCV (RBC) [Entitic vol] 88.4 fL Normal 80.0-94.0 [facility] Comment on above: Performed By: #### C BC ####[facility] Mwxteuskuc6795 [place] [phone]. Emelina Navarro MONO # 0.9 103/ul Critically high 0.3-0.8 [facility] Comment on above: Performed By: #### C BC ####[facility] Xsgtjifpya1982 [place] [phone]. Emelina Navarro Monocytes/100 WBC (Bld) 8.0 % Normal 1.7-12.0 [facility] Comment on above: Performed By: #### C BC ####[facility] Cotnsicyrm[address] [place], [place] [address]Dr. Emelina Navarro NEUT # 8.6 103/ul Critically high 1.4-6.5 [facility] Comment on above: Performed By: #### C BC ####[facility] Xqzewhtshp[address] [place], [place] [address]Dr. Emelina Navarro Neutrophils/100 WBC (Bld) 75.1 % Critically high 43.0-75.0 [facility] Comment on above: Performed By: #### C BC ####[facility] Pshzulxaxy[address] [place], [place] [address]Dr. Emelina Navarro Platelet mean volume (Bld) [Entitic vol] 11.2 fL Normal 9.5-13.5 [facility] Comment on above: Performed By: #### C BC ####[facility] Bigjilrzdw1279 [place] [phone]. Emelina Navarro PLT 99 103/ul Critically low 150-450 [facility] Comment on above: Performed By: #### C BC ####[facility] Vvgpryoyxh6715 [place] [phone]. Emelina Ramon RBC 4.58 106/ul Critically low 4.70-6.10 [facility] Comment on above: Performed By: #### C BC ####[facility] Vfexjsrwzx1788 [place] [address]Dr. Emelina Navarro WBC 11.5 103/ul Critically high 4.0-11.0 [facility] Comment on above: Performed By: #### C BC ####[facility] Oimpyfcrrj16[address] [place] [address]Dr. Em[address]ina Navarro CT HEAD WO CONon 01-09-2023 CT HEAD WO CON Normal [facility] PROF 14(COMP METB)on 023 Albumin [Mass/Vol] 3.2 g/dL Critically low 3.4-5.0 [facility] Comment on above: Performed By: #### B ASSEMBLY RIVETER, CMP ####[facility] Pjlpwfkmqt86[address] [place], [place] [address]Dr. Emelina Navarro Albumin/Globulin [Mass ratio] 0.8 {ratio} Normal [facility] Comment on above: Performed By: #### B ASSEMBLY RIVETER, CMP ####[facility] Pdbkeeyhch[address] [place], [place] [address]Dr. Emelina Navarro ALP [Catalytic activity/Vol] 150 U/L Critically high 46-116 [facility] Comment on above: Performed By: #### B ASSEMBLY RIVETER, CMP ####[facility] Kfuwqxkiab[address] [place], [place] [address]Dr. Emelina Navarro ALT [Catalytic activity/Vol] 27 U/L Normal 16-63 [facility] Comment on above: Performed By: #### B ASSEMBLY RIVETER, CMP ####[facility] Eiltmodvtm8[address] [place], [place] [address]Dr. Emelina Navarro Anion gap [Moles/Vol] 9.7 mmol/L Normal [facility] Comment on above: Performed By: #### B ASSEMBLY RIVETER, CMP ####[facility] Qikjjtpabs1738[address] [place], [place] [address]Dr. Emelina Navarro AST [Catalytic activity/Vol] 29 U/L Normal 15-37 [facility] Comment on above: Performed By: #### B ASSEMBLY RIVETER, CMP ####[facility] Smvjlizjwj45[address] [place], [place] [address]Dr. Emelina Navarro Bilirubin [Mass/Vol] 1.3 mg/dL Critically high 0.2-1.0 [facility] Comment on above: Performed By: #### B ASSEMBLY RIVETER, CMP ####[facility] Lrrbtsfbvc24[address] [place], [place] [address]Dr. Emelina Navarro Calcium [Mass/Vol] 9.0 mg/dL Normal 8.5-10.1 [facility] Comment on above: Performed By: #### B ASSEMBLY RIVETER, CMP ####[facility] Usnbywmmtu4612[address] [place], [place] [address]Dr. Emelina Navarro Chloride [Moles/Vol] 93 mmol/L Critically low 98-107 [facility] Comment on above: Performed By: #### B ASSEMBLY RIVETER, CMP ####[facility] Bwvldtsdii[address] [place], [place] [address]Dr. Emelina Navarro CO2 [Moles/Vol] 33.6 mmol/L Critically high 21.0-32.0 [facility] Comment on above: Performed By: #### B ASSEMBLY RIVETER, CMP ####[facility] Lhzflqejkm[address] [place], [place] [address]Dr. Emelina Navarro Creatinine [Mass/Vol] 1.75 mg/dL Critically high 0.70-1.30 [facility] Comment on above: Performed By: #### B ASSEMBLY RIVETER, CMP ####[facility] Huiqocdglx[address] [place], [place] [address]Dr. Emelina Ramon EGFR-AF ZIMBABWEAN 47 mL/min/1.73m2 Critically low >=60 [facility] Comment on above: Performed By: #### B ASSEMBLY RIVETER, CMP ####[facility] Xnwegfycix95[address] [place], [place] [address]Dr. Emelina Ramon EGFR-NON AF ZIMBABWEAN 39 mL/min/1.73m2 Critically low >=60 [facility] Comment on above: Performed By: #### B ASSEMBLY RIVETER, CMP ####[facility] Lulypahknk[address] [place], [place] [address]Dr. Emelina Navarro Globulin (S) [Mass/Vol] 4.1 g/dL Normal [facility] Comment on above: Performed By: #### B ASSEMBLY RIVETER, CMP ####[facility] Qyvnbonslw1544 [place] [address]Dr. Emelina Navarro Glucose [Mass/Vol] 235 mg/dL Critically high 74-106 [facility] Comment on above: Performed By: #### B ASSEMBLY RIVETER, CMP ####[facility] Hkrjlssote4875 [place] [address]Dr. Emelina Navarro Potassium [Moles/Vol] 3.3 mmol/L Critically low 3.5-5.1 [facility] Comment on above: Performed By: #### B ASSEMBLY RIVETER, CMP ####[facility] Ziiywylhyp9329 [place] [address]Dr. Emelina Navarro Protein [Mass/Vol] 7.3 g/dL Normal 6.4-8.2 [facility] Comment on above: Performed By: #### B ASSEMBLY RIVETER, CMP ####[facility] Hfqyiatzyg[address] [place], [place] [address]Dr. Emelina Navarro Sodium [Moles/Vol] 133 mmol/L Critically low 136-145 Th [facility] Comment on above: Performed By: #### B ASSEMBLY RIVETER, CMP ####[facility] Rowtwatmis3139[address] [place], [place] [address]Dr. Emelina Navarro Urea nitrogen [Mass/Vol] 50.0 mg/dL Critically high 7.0-18.0 [facility] Comment on above: Performed By: #### B ASSEMBLY RIVETER, CMP ####[facility] Wnpcfljxav[address] [place], [place] [address]Dr. Emelina Navarro Urea nitrogen/Creatinine [Mass ratio] 28.6 mg/mg Normal [facility] Comment on above: Performed By: #### B ASSEMBLY RIVETER, CMP ####[facility] Ioanmwcegv[address] [place], [place] [address]Dr. Emelina Ramon BNPon 01-08-2023 Natriuretic peptide B (Bld) [Mass/Vol] 8174.0 pg/mL Critically high <=900.0 [facility] Comment on above: Performed By: #### B ASSEMBLY RIVETER ####[facility] Kvzrjwsqlu33[address] [place], [place] [address]Dr. Emelina Navarro CBC AUTO DIFFon 01-08-2023 BASO # 0.0 103/ul Normal 0.0-0.1 [facility] Comment on above: Performed By: #### C BC ####[facility] Qgbfvpwivr9931 [place] [address]Dr. Emelina Navarro Basophils/100 WBC (Bld) 0.2 % Normal 0.2-2.0 [facility] Comment on above: Performed By: #### C BC ####[facility] Vsmcvgpcyz11[address] [place], [place] [address]Dr. Emelina Navarro EO # 0.2 103/ul Normal 0.0-0.7 [facility] Comment on above: Performed By: #### C BC ####[facility] Lqsvlvyubu88[address] [place], [place] [address]Dr. Emelina Navarro Eosinophils/100 WBC (Bld) 1.7 % Normal 0.9-7.0 [facility] Comment on above: Performed By: #### C BC ####[facility] H[address]rgwbyzoy[address] [place], [place] [address]Dr. Emelina Navarro Erythrocyte distribution width (RBC) [Ratio] 17.4 % Critically high 11.0-15.0 [facility] Comment on above: Performed By: #### C BC ####[facility] Jxtmuwpdrg[address] [place], [place] [address]Dr. Emelina Navarro Hematocrit (Bld) [Volume fraction] 40.8 % Critically low 42.0-54.0 [facility] Comment on above: Performed By: #### C BC ####[facility] Onoinxwhta8[address] [place], [place] [address]Dr. Emelina Navarro Hemoglobin (Bld) [Mass/Vol] 13.3 g/dL Critically low 14.0-18.0 [facility] Comment on above: Performed By: #### C BC ####[facility] Qxdgpshcqb[address] [place], [place] [address]Dr. Awildanitza Ramon IG # 0.05 10e3/ul Critically high 0.00-0.03 [facility] Comment on above: Performed By: #### C BC ####[facility] Ryieefosdi4165 [place] [address]Dr. Awildanitza Navarro IG % 0.4 % Normal 0.0-0.5 [facility] Comment on above: Performed By: #### C BC ####[facility] Nahfbknvja8880 [place] [address]Dr. Awildanitza Ramon LYMPH # 1.7 103/ul Normal 1.2-3.8 [facility] Comment on above: Performed By: #### C BC ####[facility] Dkvyogfenw4[address] [place], [place] [address]Dr. Emelina Navarro Lymphocytes/100 WBC (Bld) 12.5 % Critically low 20.5-60.0 [facility] Comment on above: Performed By: #### C BC ####[facility] Pbcsbkopls[address] [place], [place] [address]DrWesley Navarro MANUAL DIFF REQ NO Normal [facility] Comment on above: Performed By: #### C BC ####[facility] Rcamgbcext[address] [place], [place] [address]Dr. Emelina Ramon MCH (RBC) [Entitic mass] 29.1 pg Normal 25.9-34.0 [facility] Comment on above: Performed By: #### C BC ####[facility] Fucenebgsi0[address] [place], [place] [address]DrWesley Emelina Ramon MCHC (RBC) [Mass/Vol] 32.6 g/dL Normal 29.9-35.2 [facility] Comment on above: Performed By: #### C BC ####[facility] Djldmzcnro[address] [place], [place] [address]DrWesley Awildanitza Navarro MCV (RBC) [Entitic vol] 89.3 fL Normal 80.0-94.0 [facility] Comment on above: Performed By: #### C BC ####[facility] [facility] [address] [place], [place] [address]DrWesley Navarro MONO # 1.0 103/ul Critically high 0.3-0.8 [facility] Comment on above: Performed By: #### C BC ####[facility] Rhwlysebkh[address] [place], [place] [address]Dr. Emelina Navarro Monocytes/100 WBC (Bld) 7.6 % Normal 1.7-12.0 [facility] Comment on above: Performed By: #### C BC ####[facility] Jcrgplibvy12[address] [place] [address]Dr. Emelina Navarro NEUT # 10.3 103/ul Critically high 1.4-6.5 [facility] Comment on above: Performed By: #### C BC ####[facility] Hjheuponpq8383 [place] [address]Dr. Emelina Navarro Neutrophils/100 WBC (Bld) 77.6 % Critically high 43.0-75.0 [facility] Comment on above: Performed By: #### C BC ####[facility] Mqhsoglgij44[address] [place], [place] [address]Dr. Emelina Navarro Platelet mean volume (Bld) [Entitic vol] 11.0 fL Normal 9.5-13.5 [facility] Comment on above: Performed By: #### C BC ####[facility] Cvmmvddcun[address] [place], [place] [address]Dr. Emelina Navarro PLT 106 103/ul Critically low 150-450 The [facility] Comment on above: Performed By: #### C BC ####[facility] Qbdxlbvezl[address] [place], [place] [address]Dr. Emelina Navarro RBC 4.57 106/ul Critically low 4.70-6.10 [facility] Comment on above: Performed By: #### C BC ####[facility] Rfgneydmvp[address] [place], [place] [id number]. Emelina Navarro WBC 13.3 103/ul Critically high 4.0-11.0 [facility] Comment on above: Performed By: #### C BC ####[facility] Idziubftjz[address] [place], [place] [address]Dr. Emelina Navarro CULTURE URINEon 01-08-2023 CULTURE URINE Culture Observations : LIGHT GROWTH OF MIXED SKIN CEDRIC. NO POTENTIAL PATHOGENS SEEN. Normal [facility] Comment on above: Performed By: #### U RCX ####[facility] Ushlmeqlba[address] [place] [address]Dr. Emelina Navarro ECHOCARDIO M/2D COMPLETEon 0 01-08-2023 ECHOCARDIO M/2D COMPLETE Normal [facility] PROCALCITONINon 01-08-2023 Procalcitonin 0.10 ng/mL Critically high 0.00-0.08 [facility] Comment on above: Result Comment: [...] are obtained. Performed By: #### P CTLC ####[facility] Jqdtdvzbjd129[address] [place], [place] [address]Dr. Emelina Navarro PROF 14(COMP METB)on 023 Albumin [Mass/Vol] 3.3 g/dL Critically low 3.4-5.0 Th [facility] Comment on above: Performed By: #### C MP ####[facility] Pxswmeppag7333 [place] [address]Dr. Emelina Navarro Albumin/Globulin [Mass ratio] 0.8 {ratio} Normal [facility] Comment on above: Performed By: #### C MP ####[facility] Ywatqnejla7952 [place] [address]Dr. Emelina Navarro ALP [Catalytic activity/Vol] 140 U/L Critically high 46-116 [facility] Comment on above: Performed By: #### C MP ####[facility] Nbpllgpnqq7024 [place] [address]Dr. Emelina Navarro ALT [Catalytic activity/Vol] 22 U/L Normal 16-63 [facility] Comment on above: Performed By: #### C MP ####[facility] Xvkqzdvidp99[address] [place], [place] [address]Dr. Emelina Navarro Anion gap [Moles/Vol] 13.1 mmol/L Normal [facility] Comment on above: Performed By: #### C MP ####[facility] Jxeokbcijr539[address] [place], [place] [address]Dr. Emelina Navarro AST [Catalytic activity/Vol] 21 U/L Normal 15-37 [facility] Comment on above: Performed By: #### C MP ####[facility] Rzuazytfbe0140[address] [place], [place] [address]Dr. Emelina Navarro Bilirubin [Mass/Vol] 1.3 mg/dL Critically high 0.2-1.0 [facility] Comment on above: Performed By: #### C MP ####[facility] Bqpedfafdb17[address] [place], [place] [address]Dr. Emelina Navarro Calcium [Mass/Vol] 9.1 mg/dL Normal 8.5-10.1 [facility] Comment on above: Performed By: #### C MP ####[facility] Orhfdrdzae6[address] [place], [place] [address]Dr. Emelina Navarro Chloride [Moles/Vol] 95 mmol/L Critically low 98-107 [facility] Comment on above: Performed By: #### C MP ####[facility] Owczbheoon4[address] [place], [place] [address]Dr. Emelina Navarro CO2 [Moles/Vol] 30.4 mmol/L Normal 21.0-32.0 [facility] Comment on above: Performed By: #### C MP ####[facility] Klzczjnpsy0934[address] [place], [place] [address]Dr. Emelina Navarro Creatinine [Mass/Vol] 1.67 mg/dL Critically high 0.70-1.30 [facility] Comment on above: Performed By: #### C MP ####[facility] Umkmgjgyaz[address] [place], [place] [address]Dr. Emelina Navarro EGFR-AF ZIMBABWEAN 50 mL/min/1.73m2 Critically low >=60 [facility] Comment on above: Performed By: #### C MP ####[facility] Mwmhqzvspg3748 [place] [address]Dr. Emelina Navarro EGFR-NON AF ZIMBABWEAN 41 mL/min/1.73m2 Critically low >=60 [facility] Comment on above: Performed By: #### C MP ####[facility] Lpxxbfzlqr4037 [place] [address]Dr. Emelina Ramon Globulin (S) [Mass/Vol] 3.9 g/dL Normal [facility] Comment on above: Performed By: #### C MP ####[facility] Odfedraxug8595 [place] [address]Dr. Emelina Navarro Glucose [Mass/Vol] 198 mg/dL Critically high 74-106 [facility] Comment on above: Performed By: #### C MP ####[facility] Zkqcoppive9862 [place] [address]Dr. Emelina Ramon Potassium [Moles/Vol] 3.5 mmol/L Normal 3.5-5.1 [facility] Comment on above: Performed By: #### C MP ####[facility] Gveezvmebt2106 [place] [address]Dr. Emelina Ramon Protein [Mass/Vol] 7.2 g/dL Normal 6.4-8.2 [facility] Comment on above: Performed By: #### C MP ####[facility] Pulqluikfj2202 [place] [address]Dr. Emelina Ramon Sodium [Moles/Vol] 135 mmol/L Critically low 136-145 [facility] Comment on above: Performed By: #### C MP ####[facility] Ajnwsacmkd7492 [place] [address]Dr. Emelina Navarro Urea nitrogen [Mass/Vol] 42.0 mg/dL Critically high 7.0-18.0 [facility] Comment on above: Performed By: #### C MP ####[facility] Dkyyjuxobv8382 [place] [address]Dr. Awildanitza Navarro Urea nitrogen/Creatinine [Mass ratio] 25.1 mg/mg Normal [facility] Comment on above: Performed By: #### C MP ####[facility] Trlmosqvjv9[address] [place], [place] [address]Dr. Emelina Navarro PROTIMEon 01-08-2023 INR Coag (PPP) [Relative time] 2.59 {INR} Normal [facility] Comment on above: Performed By: #### P T ####[facility] Uuarcrfmfu434[address] [place], [place] [address]Dr. Emelina Navarro INR GUIDELINES SEE BELOW Normal [facility] Comment on above: Result Comment: WENDY RED INR: 2.0 - 3.0 CONDITIONS NOT LISTED BELOW 2.5 - 3.5 FOR PROSTHETIC HEART VALVE REPLACEMENT 2.5 - 3.5 RECURRENT THROMBOSIS Performed By: #### P T ####[facility] Mnckinuncn[address] [place], [place] [address]Dr. Emelina Navarro PT Coag (PPP) [Time] 26.0 s Critically high 9.0-11.6 [facility] Comment on above: Performed By: #### P T ####[facility] Rmxpylfigu7576[address] [place], [place] [address]Dr. Emelina Navarro CBC AUTO DIFFon 01-07-2023 BASO # 0.0 103/ul Normal 0.0-0.1 [facility] Comment on above: Performed By: #### C BC ####[facility] Gbfrkhqije3413[address] [place], [place] [address]Dr. Emelina Navarro Basophils/100 WBC (Bld) 0.3 % Normal 0.2-2.0 [facility] Comment on above: Performed By: #### C BC ####[facility] Gyxwpwsqff6827[address] [place], [place] [address]DrWesley Navarro EO # 0.3 103/ul Normal 0.0-0.7 [facility] Comment on above: Performed By: #### C BC ####[facility] Ysoxvrsxok[address] [place], [place] [address]DrWesley Navarro Eosinophils/100 WBC (Bld) 2.3 % Normal 0.9-7.0 [facility] Comment on above: Performed By: #### C BC ####[facility] Bdnvfxbtyk067[address] [place], [place] [address]Dr. Emelina Navarro Erythrocyte distribution width (RBC) [Ratio] 17.8 % Critically high 11.0-15.0 [facility] Comment on above: Performed By: #### C BC ####[facility] Keekvzflsv37[address] [place], [place] [address]DrWesley Navarro Hematocrit (Bld) [Volume fraction] 43.3 % Normal 42.0-54.0 [facility] Comment on above: Performed By: #### C BC ####[facility] Lkxmbtuawm94[address] [place], [place] [address]DrWesley Navarro Hemoglobin (Bld) [Mass/Vol] 13.6 g/dL Critically low 14.0-18.0 [facility] Comment on above: Performed By: #### C BC ####[facility] Kygutbxwxl7[address] [place], [place] [address]Dr. Emelina Navarro IG # 0.05 10e3/ul Critically high 0.00-0.03 [facility] Comment on above: Performed By: #### C BC ####[facility] Cczvexgoej5[address] [place], [place] [address]DrWesley Navarro IG % 0.4 % Normal 0.0-0.5 [facility] Comment on above: Performed By: #### C BC ####[facility] Cvjkicmhdi17[address] [place], [place] [address]DrWesley Navarro LYMPH # 1.8 103/ul Normal 1.2-3.8 [facility] Comment on above: Performed By: #### C BC ####[facility] Thxlayeuyr1610[address] [place], [place] [address]DrWesley Navarro Lymphocytes/100 WBC (Bld) 12.8 % Critically low 20.5-60.0 [facility] Comment on above: Performed By: #### C BC ####[facility] Fapwcuvkad26[address] [place], [place] [address]DrWesley Navarro MANUAL DIFF REQ NO Normal [facility] Comment on above: Performed By: #### C BC ####[facility] [address]qkdhmyeho[address] [place] [id number] Navarro MCH (RBC) [Entitic mass] 28.4 pg Normal 25.9-34.0 [facility] Comment on above: Performed By: #### C BC ####[facility] Tnlspbhcxf6817 [place] [address]DrWesley Navarro MCHC (RBC) [Mass/Vol] 31.4 g/dL Normal 29.9-35.2 [facility] Comment on above: Performed By: #### C BC ####[facility] Weploidgsg5490 [place] [address]DrWesley Navarro MCV (RBC) [Entitic vol] 90.4 fL Normal 80.0-94.0 [facility] Comment on above: Performed By: #### C BC ####[facility] Ctxfmikytw98[address] [place], [place] [address]DrWesley Navarro MONO # 0.9 103/ul Critically high 0.3-0.8 [facility] Comment on above: Performed By: #### C BC ####[facility] Xfzgqwpkhw3[address] [place], [place] [address]DrWesley Navarro Monocytes/100 WBC (Bld) 6.8 % Normal 1.7-12.0 [facility] Comment on above: Performed By: #### C BC ####[facility] Wattiqbexm[address] [place], [place] [address]DrWesley Navarro NEUT # 10.7 103/ul Critically high 1.4-6.5 [facility] Comment on above: Performed By: #### C BC ####[facility] Qtpfgzkpmm32[address] [place], [place] [address]DrWesley Navarro Neutrophils/100 WBC (Bld) 77.4 % Critically high 43.0-75.0 [facility] Comment on above: Performed By: #### C BC ####[facility] Ilivymwppl35[address] [place], [place] [address]DrWesley Navarro Platelet mean volume (Bld) [Entitic vol] 11.5 fL Normal 9.5-13.5 [facility] Comment on above: Performed By: #### C BC ####[facility] Jemlvccyzs8134 [place] [address]Dr. Emelina Navarro PLT 114 103/ul Critically low 150-450 [facility] Comment on above: Performed By: #### C BC ####[facility] Ydeysgdqlz1724 [place] [address]Dr. Emelina Navarro RBC 4.79 106/ul Normal 4.70-6.10 [facility] Comment on above: Performed By: #### C BC ####[facility] Taahoolxyc2957 [place] [address]DrWesley Navarro WBC 13.8 103/ul Critically high 4.0-11.0 [facility] Comment on above: Performed By: #### C BC ####[facility] Yoguitfyae[address] [place], [place] [address]DrWesley Navarro PROF 14(COMP METB)on 023 Albumin [Mass/Vol] 3.4 g/dL Normal 3.4-5.0 [facility] Comment on above: Performed By: #### C MP ####[facility] Weheweyfpp3265 [place] [address]DrWesley Navarro Albumin/Globulin [Mass ratio] 0.9 {ratio} Normal [facility] Comment on above: Performed By: #### C MP ####[facility] Zbggplwifu6754 [place] [address]DrWesley Navarro ALP [Catalytic activity/Vol] 130 U/L Critically high 46-116 [facility] Comment on above: Performed By: #### C MP ####[facility] Rhbygojnrr3344 [place] [address]DrWesley Navarro ALT [Catalytic activity/Vol] 24 U/L Normal 16-63 [facility] Comment on above: Performed By: #### C MP ####[facility] Anpabmaips1055 [place] [address]DrWesley Navarro Anion gap [Moles/Vol] 12.2 mmol/L Normal [facility] Comment on above: Performed By: #### C MP ####[facility] Blkqvnruov8081 [place] [address]Dr. Emelina Ramon AST [Catalytic activity/Vol] 22 U/L Normal 15-37 [facility] Comment on above: Performed By: #### C MP ####[facility] Xuqyjcdeag4340 [place] [address]Dr. Emelina Ramon Bilirubin [Mass/Vol] 1.1 mg/dL Critically high 0.2-1.0 [facility] Comment on above: Performed By: #### C MP ####[facility] Zfephrbilv17[address] [place], [place] [address]Dr. Awildanitza Navarro Calcium [Mass/Vol] 9.0 mg/dL Normal 8.5-10.1 [facility] Comment on above: Performed By: #### C MP ####[facility] Fsbdghhnic027[address] [place], [place] [address]Dr. Emelina Navarro Chloride [Moles/Vol] 99 mmol/L Normal 98-107 [facility] Comment on above: Performed By: #### C MP ####[facility] Oxjzpqiuvj5746[address] [place], [place] [address]Dr. Emelina Navarro CO2 [Moles/Vol] 30.5 mmol/L Normal 21.0-32.0 [facility] Comment on above: Performed By: #### C MP ####[facility] Nubthaomqh395[address] [place], [place] [address]Dr. Awildanitza Navarro Creatinine [Mass/Vol] 1.58 mg/dL Critically high 0.70-1.30 [facility] Comment on above: Performed By: #### C MP ####[facility] Etyfgsixgo9184[address] [place], [place] [address]DrWesley Navarro EGFR-AF ZIMBABWEAN 53 mL/min/1.73m2 Critically low >=60 [facility] Comment on above: Performed By: #### C MP ####[facility] Cfpkeszjct8439[address] [place], [place] [address]Dr. Emelina Navarro EGFR-NON AF ZIMBABWEAN 44 mL/min/1.73m2 Critically low >=60 [facility] Comment on above: Performed By: #### C MP ####[facility] Ruwvbmmdtc1874 [place] [address]Dr. Emelina Navarro Globulin (S) [Mass/Vol] 3.9 g/dL Normal [facility] Comment on above: Performed By: #### C MP ####[facility] Wqdivkcprw8225[address] [place], [place] [address]Dr. Emelina Navarro Glucose [Mass/Vol] 195 mg/dL Critically high 74-106 [facility] Comment on above: Performed By: #### C MP ####[facility] Jcmysvtggv954[address] [place], [place] [address]Dr. Emelina Navarro Potassium [Moles/Vol] 3.7 mmol/L Normal 3.5-5.1 [facility] Comment on above: Performed By: #### C MP ####[facility] Qpnrkomnky2214[address] [place], [place] [address]Dr. Emelina Navarro Protein [Mass/Vol] 7.3 g/dL Normal 6.4-8.2 [facility] Comment on above: Performed By: #### C MP ####[facility] Pnzizzvstc84[address] [place], [place] [address]Dr. Emelina Navarro Sodium [Moles/Vol] 138 mmol/L Normal 136-145 [facility] Comment on above: Performed By: #### C MP ####[facility] Qbyrmsuzub023[address] [place], [place] [address]Dr. Emelina Navarro Urea nitrogen [Mass/Vol] 36.0 mg/dL Critically high 7.0-18.0 [facility] Comment on above: Performed By: #### C MP ####[facility] Tssmqtudhv34[address] [place], [place] [address]Dr. Emelina Navarro Urea nitrogen/Creatinine [Mass ratio] 22.8 mg/mg Normal [facility] Comment on above: Performed By: #### C MP ####[facility] Jnnphswsvs5[address] [place], [place] [address]Dr. Emelina Navarro CBC AUTO DIFFon 01-06-2023 BASO # 0.0 103/ul Normal 0.0-0.1 [facility] Comment on above: Performed By: #### C BC ####[facility] Jasqxolqfw7175 [place] [address]Dr. Emelina Navarro Basophils/100 WBC (Bld) 0.3 % Normal 0.2-2.0 [facility] Comment on above: Performed By: #### C BC ####[facility] Ewjsqreetw4353 [place] [address]Dr. Emelina Navarro EO # 0.3 103/ul Normal 0.0-0.7 [facility] Comment on above: Performed By: #### C BC ####[facility] Qjwwylhatp0551 [place] [address]Dr. Emelina Navarro Eosinophils/100 WBC (Bld) 2.2 % Normal 0.9-7.0 [facility] Comment on above: Performed By: #### C BC ####[facility] Ebdxiwrucn[address] [place], [place] [address]Dr. Emelina Navarro Erythrocyte distribution width (RBC) [Ratio] 17.9 % Critically high 11.0-15.0 [facility] Comment on above: Performed By: #### C BC ####[facility] Jowherbuns5772 [place] [address]Dr. Emelina Navarro Hematocrit (Bld) [Volume fraction] 40.9 % Critically low 42.0-54.0 [facility] Comment on above: Performed By: #### C BC ####[facility] Lirkwuvebr1897 [place] [address]Dr. Emelina Navarro Hemoglobin (Bld) [Mass/Vol] 12.9 g/dL Critically low 14.0-18.0 [facility] Comment on above: Performed By: #### C BC ####[facility] Vhykbolggw5284 [place] [address]Dr. Emelina Navarro IG # 0.04 10e3/ul Critically high 0.00-0.03 [facility] Comment on above: Performed By: #### C BC ####[facility] Evdqjroqcx4540 [place] [id number]. Awildanitza Navarro IG % 0.3 % Normal 0.0-0.5 [facility] Comment on above: Performed By: #### C BC ####[facility] Xyjynmpjji3572 [place] [address]Dr. Emelina Ramon LYMPH # 2.2 103/ul Normal 1.2-3.8 [facility] Comment on above: Performed By: #### C BC ####[facility] Urzjtfogtm8875 [place] [address]Dr. Awildanitza Navarro Lymphocytes/100 WBC (Bld) 17.3 % Critically low 20.5-60.0 [facility] Comment on above: Performed By: #### C BC ####[facility] Sjdatrslpm3211 [place] [address]Dr. Emelina Navarro MANUAL DIFF REQ NO Normal [facility] Comment on above: Performed By: #### C BC ####[facility] Ccaqvgylsv2392 [place] [address]Dr. Emelina Ramon MCH (RBC) [Entitic mass] 28.5 pg Normal 25.9-34.0 [facility] Comment on above: Performed By: #### C BC ####[facility] U[address]xpshrtym[address] [place], [place] [address]Dr. Emelina Navarro MCHC (RBC) [Mass/Vol] 31.5 g/dL Normal 29.9-35.2 [facility] Comment on above: Performed By: #### C BC ####[facility] Jhlnhdgpwh1886 [place] [address]Dr. Emelina Ramon MCV (RBC) [Entitic vol] 90.3 fL Normal 80.0-94.0 [facility] Comment on above: Performed By: #### C BC ####[facility] Pldhbyeeun94[address] [place], [place] [address]Dr. Emelina Navarro MONO # 0.9 103/ul Critically high 0.3-0.8 [facility] Comment on above: Performed By: #### C BC ####[facility] Shcldauvst9717 [place] [address]Dr. Emelina Navarro Monocytes/100 WBC (Bld) 7.5 % Normal 1.7-12.0 [facility] Comment on above: Performed By: #### C BC ####[facility] Lkrmuifvti8972 [place] [address]Dr. Emelina Navarro NEUT # 9.1 103/ul Critically high 1.4-6.5 [facility] Comment on above: Performed By: #### C BC ####[facility] Nkguubvpce9965 [place] [address]Dr. Emelina Navarro Neutrophils/100 WBC (Bld) 72.4 % Normal 43.0-75.0 [facility] Comment on above: Performed By: #### C BC ####[facility] Vjksdwsepj0361 [place] [address]Dr. Emelina Navarro Platelet mean volume (Bld) [Entitic vol] 11.3 fL Normal 9.5-13.5 [facility] Comment on above: Performed By: #### C BC ####[facility] Jwomztnilc9326 [place] [address]Dr. Emelina Navarro PLT 119 103/ul Critically low 150-450 [facility] Comment on above: Performed By: #### C BC ####[facility] Eicktzioqe8359 [place] [address]Dr. Emelina Navarro RBC 4.53 106/ul Critically low 4.70-6.10 [facility] Comment on above: Performed By: #### C BC ####[facility] Kkgbdzybvy2201 [place] [address]Dr. Emelina Navarro WBC 12.6 103/ul Critically high 4.0-11.0 [facility] Comment on above: Performed By: #### C BC ####[facility] Euhzbdpvbp[address] [place], [place] [address]DrWesley Emelina Ramon PROF 14(COMP METB)on 023 Albumin [Mass/Vol] 3.1 g/dL Critically low 3.4-5.0 [facility] Comment on above: Performed By: #### C MP ####[facility] Aeuhpuinlc4211 [place] [id number]. Emelina Navarro Albumin/Globulin [Mass ratio] 1.0 {ratio} Normal [facility] Comment on above: Performed By: #### C MP ####[facility] Zhvizrqtqf5044 [place] [id number]. Emelina Navarro ALP [Catalytic activity/Vol] 114 U/L Normal 46-116 [facility] Comment on above: Performed By: #### C MP ####[facility] Qkieccqrvp3499 [place] [address]Dr. Emelina Navarro ALT [Catalytic activity/Vol] 23 U/L Normal 16-63 [facility] Comment on above: Performed By: #### C MP ####[facility] Veviwhbhff4[address] [place], [place] [address]Dr. Emelian Ramon Anion gap [Moles/Vol] 13.5 mmol/L Normal [facility] Comment on above: Performed By: #### C MP ####[facility] Sjfpsvslxn8[address] [place], [place] [address]Dr. Emelina Ramon AST [Catalytic activity/Vol] 24 U/L Normal 15-37 [facility] Comment on above: Performed By: #### C MP ####[facility] Uqcdhlnvxt11[address] [place], [place] [address]Dr. Emelina Ramon Bilirubin [Mass/Vol] 1.0 mg/dL Normal 0.2-1.0 [facility] Comment on above: Performed By: #### C MP ####[facility] Yyobxmnuzp8059 [place] [address]Dr. Emelina Ramon Calcium [Mass/Vol] 8.5 mg/dL Normal 8.5-10.1 [facility] Comment on above: Performed By: #### C MP ####[facility] Mjjfozmrtl[address] [place], [place] [address]Dr. Emelina Ramon Chloride [Moles/Vol] 102 mmol/L Normal 98-107 [facility] Comment on above: Performed By: #### C MP ####[facility] Afxxysmejg[address] [place], [place] [id number]. Emelina Navarro CO2 [Moles/Vol] 28.2 mmol/L Normal 21.0-32.0 [facility] Comment on above: Performed By: #### C MP ####[facility] Csbuwcigcv6[address] [place], [place] [address]Dr. Emelina Navarro Creatinine [Mass/Vol] 1.42 mg/dL Critically high 0.70-1.30 [facility] Comment on above: Performed By: #### C MP ####[facility] Tzahhrgafn[address] [place], [place] [address]Dr. Emelina Navarro EGFR-AF ZIMBABWEAN 60 mL/min/1.73m2 Normal >=60 [facility] Comment on above: Performed By: #### C MP ####[facility] Wblsctrxuw0[address] [place], [place] [address]Dr. Emelina Navarro EGFR-NON AF ZIMBABWEAN 50 mL/min/1.73m2 Critically low >=60 [facility] Comment on above: Performed By: #### C MP ####[facility] Ilvtssxius30[address] [place], [place] [address]Dr. Emelina Navarro Globulin (S) [Mass/Vol] 3.1 g/dL Normal [facility] Comment on above: Performed By: #### C MP ####[facility] Edfoeybshn[address] [place], [place] [address]Dr. Emelina Navarro Glucose [Mass/Vol] 121 mg/dL Critically high 74-106 [facility] Comment on above: Performed By: #### C MP ####[facility] Pgaoxsmiqs[address] [place], [place] [address]Dr. Emelina Navarro Potassium [Moles/Vol] 3.7 mmol/L Normal 3.5-5.1 [facility] Comment on above: Performed By: #### C MP ####[facility] Mbfldwlufr[address] [place], [place] [address]Dr. Emelina Ramon Protein [Mass/Vol] 6.2 g/dL Critically low 6.4-8.2 [facility] Comment on above: Performed By: #### C MP ####[facility] Ynvasgzkgt9009 [place] [address]Dr. Emelina Navarro Sodium [Moles/Vol] 140 mmol/L Normal 136-145 [facility] Comment on above: Performed By: #### C MP ####[facility] Liqwckicvs[address] [place], [place] [address]Dr. Emelina Navarro Urea nitrogen [Mass/Vol] 33.0 mg/dL Critically high 7.0-18.0 [facility] Comment on above: Performed By: #### C MP ####[facility] Mffloqjpqq9[address] [place], [place] [address]Dr. Emelina Navarro Urea nitrogen/Creatinine [Mass ratio] 23.2 mg/mg Normal [facility] Comment on above: Performed By: #### C MP ####[facility] Nnxlptmthd[address] [place], [place] [address]Dr. Emelina Navarro BNPon 01-05-2023 Natriuretic peptide B (Bld) [Mass/Vol] 7350.0 pg/mL Critically high <=900.0 [facility] Comment on above: Performed By: #### B ASSEMBLY RIVETER, BMP, HSTROPN ####[facility] Ictcoaynlv[address] [place], [place] [address]Dr. Emelina Navarro CBC AUTO DIFFon 01-05-2023 BASO # 0.0 103/ul Normal 0.0-0.1 [facility] Comment on above: Performed By: #### C BC ####[facility] Eoqympofze[address] [place], [place] [address]Dr. Emelina Ramon Basophils/100 WBC (Bld) 0.3 % Normal 0.2-2.0 [facility] Comment on above: Performed By: #### C BC ####[facility] Dlbhpuaewc[address] [place], [place] [address]Dr. Awildanitza Navarro EO # 0.3 103/ul Normal 0.0-0.7 [facility] Comment on above: Performed By: #### C BC ####[facility] Fkzpcjbnyo9[address] [place], [place] [address]Dr. Emelina Ramon Eosinophils/100 WBC (Bld) 1.9 % Normal 0.9-7.0 [facility] Comment on above: Performed By: #### C BC ####[facility] Ztmmyaipqh[address] [place] [address]Dr. Emelina Navarro Erythrocyte distribution width (RBC) [Ratio] 17.7 % Critically high 11.0-15.0 [facility] Comment on above: Performed By: #### C BC ####[facility] Hivitdolwb[address] [place] [address]Dr. Emelina Navarro Hematocrit (Bld) [Volume fraction] 42.9 % Normal 42.0-54.0 [facility] Comment on above: Performed By: #### C BC ####[facility] Ilahccfoqn[address] [place], [place] [address]Dr. Emelina Navarro Hemoglobin (Bld) [Mass/Vol] 13.8 g/dL Critically low 14.0-18.0 [facility] Comment on above: Performed By: #### C BC ####[facility] Bcvblprubt[address] [place], [place] [address]Dr. Emelina Navarro IG # 0.07 10e3/ul Critically high 0.00-0.03 [facility] Comment on above: Performed By: #### C BC ####[facility] Nshgrdgriz38[address] [place], [place] [address]Dr. Emelina Navarro IG % 0.4 % Normal 0.0-0.5 [facility] Comment on above: Performed By: #### C BC ####[facility] Loyzibtojx[address] [place], [place] [address]Dr. Emelina Navarro LYMPH # 1.8 103/ul Normal 1.2-3.8 [facility] Comment on above: Performed By: #### C BC ####[facility] Mszjowasvo5064[address] [place], [place] [address]Dr. Emelina Navarro Lymphocytes/100 WBC (Bld) 11.6 % Critically low 20.5-60.0 [facility] Comment on above: Performed By: #### C BC ####[facility] Efignneclt[address] [place], [place] [address]Dr. Emelina Navarro MANUAL DIFF REQ NO Normal [facility] Comment on above: Performed By: #### C BC ####[facility] Ygyunhzqte7[address] [place] [phone] Navarro MCH (RBC) [Entitic mass] 28.5 pg Normal 25.9-34.0 [facility] Comment on above: Performed By: #### C BC ####[facility] Jkbyztxrmd0318 [place] [address]Dr. Emelina Navarro MCHC (RBC) [Mass/Vol] 32.2 g/dL Normal 29.9-35.2 [facility] Comment on above: Performed By: #### C BC ####[facility] Whavhstfcl64[address] [place] [address]DrWesley Navarro MCV (RBC) [Entitic vol] 88.5 fL Normal 80.0-94.0 [facility] Comment on above: Performed By: #### C BC ####[facility] Nkoxlygpak[address] [place], [place] [address]DrWesley Navarro MONO # 1.1 103/ul Critically high 0.3-0.8 [facility] Comment on above: Performed By: #### C BC ####[facility] Neyjfekxnp20[address] [place], [place] [address]DrWesley Navarro Monocytes/100 WBC (Bld) 6.9 % Normal 1.7-12.0 [facility] Comment on above: Performed By: #### C BC ####[facility] Mrtnbyqfui17[address] [place], [place] [address]DrWesley Navarro NEUT # 12.4 103/ul Critically high 1.4-6.5 [facility] Comment on above: Performed By: #### C BC ####[facility] Bpadbupqvc4775 [place] [address]DrWesley Navarro Neutrophils/100 WBC (Bld) 78.9 % Critically high 43.0-75.0 [facility] Comment on above: Performed By: #### C BC ####[facility] Xrsfzepkgx7146 [place] [address]DrWesley Navarro Platelet mean volume (Bld) [Entitic vol] 11.5 fL Normal 9.5-13.5 [facility] Comment on above: Performed By: #### C BC ####[facility] Fpfhyxrpzg1871 [place] [phone]. Emelina Navarro PLT 142 103/ul Critically low 150-450 [facility] Comment on above: Performed By: #### C BC ####[facility] Zimsgugtxy4[address] [place] [phone]. Emelina Navarro RBC 4.85 106/ul Normal 4.70-6.10 [facility] Comment on above: Performed By: #### C BC ####[facility] Kcgdmculro77[address] [place] [phone]. Emelina Navarro WBC 15.8 103/ul Critically high 4.0-11.0 [facility] Comment on above: Performed By: #### C BC ####[facility] Fxplekovcm8159 [place] [phone]. Emelina Navarro CULTURE BLOODon 01-05-2023 Microscopic examination of blood, culture Culture Observations: NO GROWTH AT 5 DAYS. Normal [facility] Comment on above: Performed By: #### B LDCX2 ####[facility] Fcsvbsqajl0418 [place] [phone]. Emelina Navarro Microscopic examination of blood, culture Culture Observations: NO GROWTH AT 5 DAYS. Normal [facility] Comment on above: Performed By: #### B LDCX1 ####[facility] Bcktdhjpdm[address] [place], [place] [address]Dr. Emelina Navarro Covid-19 PCR (CVDTB)on 12-20 SARS-CoV-2 (COVID-19) RNA RADHA+probe Ql (Unsp spec) Not detected Normal NOT DETECTED [facility] Comment on above: Result Comment: When [...] for this test is supported by the [place] of Health and Human Service's declaration that [...] be used). Performed By: #### C VDTBH ####[facility] Uszinygdle39[address] [place] [address]Dr. Emelina Navarro DIGOXINon 01-05-2023 DIG 0.8 ng/mL Critically low 0.9-2.0 [facility] Comment on above: Performed By: #### D IG ####[facility] Fmswlmwmed[address] [place], [place] [address]Dr. Emelina Navarro Office Visiton 01-05-2023 Follow-up visit [id number] Adwoa Porter 1955 M Date Provider Department Center 01/05/2023 MASSIMO DYE [facility] Family History Problem Relation Age of Onset Diabetes Mother Hypertension Mother Coronary artery disease Mother Family Status - Relation Status Age at Mother Level of Service:91460 [place] OFFICE/OUTPATIENT ESTABLISHED HIGH MDM 40-54 MIN Reason for Visit and Comments: Atrial Fibrillation [80] Congestive Heart Failure [127] Coronary Artery Disease [187] Normal [facility] PROF CHEM 8 (BAS METB)on Anion gap [Moles/Vol] 12.7 mmol/L Normal [facility] Comment on above: Performed By: #### B ASSEMBLY RIVETER, BMP, HSTROPN ####[facility] Wdzbjotcel5078 [place] [address]Dr. Emelina Navarro Calcium [Mass/Vol] 8.8 mg/dL Normal 8.5-10.1 [facility] Comment on above: Performed By: #### B ASSEMBLY RIVETER, BMP, HSTROPN ####[facility] Zplufpalkq4634 [place] [phone] Navarro Chloride [Moles/Vol] 99 mmol/L Normal 98-107 [facility] Comment on above: Performed By: #### B ASSEMBLY RIVETER, BMP, HSTROPN ####[facility] Rhucydjdaq2947 [place] [address]Dr. Emelina Navarro CO2 [Moles/Vol] 28.2 mmol/L Normal 21.0-32.0 [facility] Comment on above: Performed By: #### B ASSEMBLY RIVETER, BMP, HSTROPN ####[facility] Gnihackdic[address] [place], [place] [address]Dr. Emelina Navarro Creatinine [Mass/Vol] 1.64 mg/dL Critically high 0.70-1.30 [facility] Comment on above: Performed By: #### B ASSEMBLY RIVETER, BMP, HSTROPN ####[facility] Kcfrluxhpj13[address] [place] [address]Dr. Emelina Navarro EGFR-AF ZIMBABWEAN 51 mL/min/1.73m2 Critically low >=60 [facility] Comment on above: Performed By: #### B ASSEMBLY RIVETER, BMP, HSTROPN ####[facility] Pcyslcdzqt9[address] [place], [place] [address]Dr. Emelina Navarro EGFR-NON AF ZIMBABWEAN 42 mL/min/1.73m2 Critically low >=60 [facility] Comment on above: Performed By: #### B ASSEMBLY RIVETER, BMP, HSTROPN ####[facility] Saspglwsoc6[address] [place], [place] [address]Dr. Emelina Navarro Glucose [Mass/Vol] 203 mg/dL Critically high 74-106 [facility] Comment on above: Performed By: #### B ASSEMBLY RIVETER, BMP, HSTROPN ####[facility] Ufohtdvqyi45[address] [place], [place] [address]Dr. Emelina Navarro Potassium [Moles/Vol] 3.9 mmol/L Normal 3.5-5.1 [facility] Comment on above: Performed By: #### B ASSEMBLY RIVETER, BMP, HSTROPN ####[facility] Pkoubtjtha[address] [place], [place] [address]Dr. Emelina Navarro Sodium [Moles/Vol] 136 mmol/L Normal 136-145 [facility] Comment on above: Performed By: #### B ASSEMBLY RIVETER, BMP, HSTROPN ####[facility] Eqytsonjnv4304 [place] [address]Dr. Emelina Navarro Urea nitrogen [Mass/Vol] 32.0 mg/dL Critically high 7.0-18.0 [facility] Comment on above: Performed By: #### B ASSEMBLY RIVETER, BMP, HSTROPN ####[facility] Fktqcaiujq47[address] [place], [place] [address]Dr. Emelina Navarro Urea nitrogen/Creatinine [Mass ratio] 19.5 mg/mg Normal [facility] Comment on above: Performed By: #### B ASSEMBLY RIVETER, BMP, HSTROPN ####[facility] Qpndueybpu[address] [place], [place] [address]Dr. Emelina Navarro PROTIMEon 01-05-2023 INR Coag (PPP) [Relative time] 2.53 {INR} Normal [facility] Comment on above: Performed By: #### P T, PTT ####[facility] Ldbdladqdf[address] [place], [place] [address]Dr. Emelina Navarro INR GUIDELINES SEE BELOW Normal [facility] Comment on above: Result Comment: WENDY RED INR: 2.0 - 3.0 CONDITIONS NOT LISTED BELOW 2.5 - 3.5 FOR PROSTHETIC HEART VALVE REPLACEMENT 2.5 - 3.5 RECURRENT THROMBOSIS Performed By: #### P T, PTT ####[facility] Ohcixkidyi[address] [place], [place] [address]Dr. Emelina Navarro PT Coag (PPP) [Time] 25.4 s Critically high 9.0-11.6 [facility] Comment on above: Performed By: #### P T, PTT ####[facility] Mthqgtsrmg[address] [place], [place] [address]Dr. Emelina Navarro PTTon 01-05-2023 aPTT Coag (Bld) [Time] 37.7 s Critically high 22.3-36.2 [facility] Comment on above: Performed By: #### P T, PTT ####[facility] Swomjgaymx[address] [place], [place] [address]Dr. Emelina Navarro TROPONIN, HIGH SENSITIVITYon 01-05-2023 HSTROP 52.4 pg/mL Normal 4.0-76.1 [facility] Comment on above: Result Comment: CUT- OFF POINTS HAVE BEEN ESTABLISHED BASED ON THE FOURTH UNIVERSAL DEFINITIONS OF MYOCARDIALINFARCTION. THE UPPER REFERENCE LIMIT (URL) OF TROPONIN, DEFINED THE 99TH PERCENTILE OFcTnI DISTRIBUTION IN A REFERENCE POPULATION, HAS BEEN CONFIRMED THE DECISION THRESHOLDFOR W[place] DIAGNOSIS. Performed By: #### B ASSEMBLY RIVETER, BMP, HSTROPN ####[facility] Hexwmgkqao13[address] [place] [address]Dr. Emelina Navarro XR CHEST 1 Von 01-05-2023 XR CHEST 1 V Normal [facility] BNPon 01-02-2023 Natriuretic peptide B (Bld) [Mass/Vol] 5653.0 pg/mL Critically high <=900.0 [facility] Comment on above: Performed By: #### B ASSEMBLY RIVETER, BMP ####[facility] Yzqjkiycil[address] [place], [place] [address]Dr. Emelina Navarro CBC AUTO DIFFon 01-02-2023 BASO # 0.0 103/ul Normal 0.0-0.1 [facility] Comment on above: Performed By: #### C BC ####[facility] Djxocicwcz[address] [place], [place] [address]Dr. Emelina Ramon Basophils/100 WBC (Bld) 0.2 % Normal 0.2-2.0 [facility] Comment on above: Performed By: #### C BC ####[facility] Zzcjyokewc[address] [place], [place] [address]Dr. Emelina Navarro EO # 0.3 103/ul Normal 0.0-0.7 [facility] Comment on above: Performed By: #### C BC ####[facility] Rukcdystje[address] [place], [place] [address]Dr. Emelina Ramon Eosinophils/100 WBC (Bld) 2.1 % Normal 0.9-7.0 [facility] Comment on above: Performed By: #### C BC ####[facility] Tmbhxqyeho[address] [place], [place] [address]Dr. Emelina Ramon Erythrocyte distribution width (RBC) [Ratio] 17.9 % Critically high 11.0-15.0 [facility] Comment on above: Performed By: #### C BC ####[facility] Midvnijrye4[address] [place] [address]Dr. Emelina Navarro Hematocrit (Bld) [Volume fraction] 42.1 % Normal 42.0-54.0 [facility] Comment on above: Performed By: #### C BC ####[facility] Inqshgjrzo6378 [place] [address]Dr. Awildanitza Navarro Hemoglobin (Bld) [Mass/Vol] 13.8 g/dL Critically low 14.0-18.0 [facility] Comment on above: Performed By: #### C BC ####[facility] Edcaqzjque5[address] [place], [place] [address]Dr. Emelina Navarro IG # 0.06 10e3/ul Critically high 0.00-0.03 [facility] Comment on above: Performed By: #### C BC ####[facility] Wnkaswecst[address] [place], [place] [address]Dr. Awildanitza Navarro IG % 0.5 % Normal 0.0-0.5 [facility] Comment on above: Performed By: #### C BC ####[facility] Wfpdlamgwg9[address] [place], [place] [address]Dr. Emelina Navarro LYMPH # 1.7 103/ul Normal 1.2-3.8 [facility] Comment on above: Performed By: #### C BC ####[facility] Odltoyrdte64[address] [place], [place] [address]Dr. Emelina Navarro Lymphocytes/100 WBC (Bld) 13.1 % Critically low 20.5-60.0 [facility] Comment on above: Performed By: #### C BC ####[facility] Ahfjiawfiz07[address] [place], [place] [address]Dr. Emelina Navarro MANUAL DIFF REQ NO Normal [facility] Comment on above: Performed By: #### C BC ####[facility] Lojmeggzvc60[address] [place], [place] [address]Dr. Emelina Navarro MCH (RBC) [Entitic mass] 28.9 pg Normal 25.9-34.0 [facility] Comment on above: Performed By: #### C BC ####[facility] Kqrjosqpwz7930 [place] [address]Dr. Emelina Navarro MCHC (RBC) [Mass/Vol] 32.8 g/dL Normal 29.9-35.2 [facility] Comment on above: Performed By: #### C BC ####[facility] Xcioeeixuh3[address] [place], [place] [address]Dr. Emelina Ramon MCV (RBC) [Entitic vol] 88.3 fL Normal 80.0-94.0 [facility] Comment on above: Performed By: #### C BC ####[facility] Eufgypsnvn86[address] [place], [place] [address]DrWesley Navarro MONO # 0.7 103/ul Normal 0.3-0.8 [facility] Comment on above: Performed By: #### C BC ####[facility] Ccylbylwaw[address] [place], [place] [address]Dr. Emelina Navarro Monocytes/100 WBC (Bld) 5.3 % Normal 1.7-12.0 [facility] Comment on above: Performed By: #### C BC ####[facility] Jpdookmlmh4325[address] [place], [place] [address]Dr. Emelina Navarro NEUT # 10.1 103/ul Critically high 1.4-6.5 [facility] Comment on above: Performed By: #### C BC ####[facility] Zwvhmreebk12[address] [place], [place] [address]Dr. Emelina Navarro Neutrophils/100 WBC (Bld) 78.8 % Critically high 43.0-75.0 [facility] Comment on above: Performed By: #### C BC ####[facility] Nymrkolrxy[address] [place], [place] [address]Dr. Emelina Ramon Platelet mean volume (Bld) [Entitic vol] 10.8 fL Normal 9.5-13.5 [facility] Comment on above: Performed By: #### C BC ####[facility] Nhduuelmkc20[address] [place] [phone]. Emelina Navarro PLT 143 103/ul Critically low 150-450 [facility] Comment on above: Performed By: #### C BC ####[facility] Dutenfuftj6706 [place] [address]Dr. Emleina Navarro RBC 4.77 106/ul Normal 4.70-6.10 [facility] Comment on above: Performed By: #### C BC ####[facility] Jgknrnxmfa6831 [place] [address]Dr. Emelina Navarro WBC 12.8 103/ul Critically high 4.0-11.0 [facility] Comment on above: Performed By: #### C BC ####[facility] Jaafwowffp[address] [place], [place] [address]Dr. Emelina Ramon PROF CHEM 8 (BAS METB)on Anion gap [Moles/Vol] 12.2 mmol/L Normal [facility] Comment on above: Performed By: #### B ASSEMBLY RIVETER, BMP ####[facility] Grdknkaayz7010 [place] [address]Dr. Emelina Ramon Calcium [Mass/Vol] 8.6 mg/dL Normal 8.5-10.1 [facility] Comment on above: Performed By: #### B ASSEMBLY RIVETER, BMP ####[facility] Qtzztlzfgp[address] [place], [place] [address]Dr. Emelina Ramon Chloride [Moles/Vol] 102 mmol/L Normal 98-107 [facility] Comment on above: Performed By: #### B ASSEMBLY RIVETER, BMP ####[facility] Ztuqundbza8605 [place] [address]Dr. Awildanitza Navarro CO2 [Moles/Vol] 26.4 mmol/L Normal 21.0-32.0 [facility] Comment on above: Performed By: #### B ASSEMBLY RIVETER, BMP ####[facility] Vrrglkcgju5656 [place] [address]Dr. Emelina Ramon Creatinine [Mass/Vol] 1.56 mg/dL Critically high 0.70-1.30 [facility] Comment on above: Performed By: #### B ASSEMBLY RIVETER, BMP ####[facility] Ueepwozisq96[address] [place] [phone]. Emelina Naavrro EGFR-AF ZIMBABWEAN 54 mL/min/1.73m2 Critically low >=60 [facility] Comment on above: Performed By: #### B ASSEMBLY RIVETER, BMP ####[facility] Kjfpunmhdp5191 [place] [phone]. Emelina Navarro EGFR-NON AF ZIMBABWEAN 44 mL/min/1.73m2 Critically low >=60 [facility] Comment on above: Performed By: #### B ASSEMBLY RIVETER, BMP ####[facility] Ksywyvelph7191 [place] [phone]. Awildanitza Navarro Glucose [Mass/Vol] 211 mg/dL Critically high 74-106 [facility] Comment on above: Performed By: #### B ASSEMBLY RIVETER, BMP ####[facility] Mambipclpt[address] [place], [place] [address]Dr. Emelina Navarro Potassium [Moles/Vol] 3.6 mmol/L Normal 3.5-5.1 [facility] Comment on above: Performed By: #### B ASSEMBLY RIVETER, BMP ####[facility] Wgbyhikvmb[address] [place], [place] [address]Dr. Emelina Navarro Sodium [Moles/Vol] 137 mmol/L Normal 136-145 [facility] Comment on above: Performed By: #### B ASSEMBLY RIVETER, BMP ####[facility] Flixzlnduz[address] [place], [place] [address]Dr. Awildanitza Navarro Urea nitrogen [Mass/Vol] 42.0 mg/dL Critically high 7.0-18.0 [facility] Comment on above: Performed By: #### B ASSEMBLY RIVETER, BMP ####[facility] Pnozjzpnjy[address] [place], [place] [address]Dr. Awildanitza Ramon Urea nitrogen/Creatinine [Mass ratio] 26.9 mg/mg Normal [facility] Comment on above: Performed By: #### B ASSEMBLY RIVETER, BMP ####[facility] Rtnhlvoqyn[address] [place], [place] [address]Dr. Emelina Navarro Anion gap [Moles/Vol] 12.3 mmol/L Normal [facility] Comment on above: Performed By: #### B MP ####[facility] Xbtbwzykap6422 [place] [phone]. Emelina Navarro Calcium [Mass/Vol] 8.4 mg/dL Critically low 8.5-10.1 [facility] Comment on above: Performed By: #### B MP ####[facility] Naoobwybpr0841 [place] [phone]. Emelina Navarro Chloride [Moles/Vol] 101 mmol/L Normal 98-107 [facility] Comment on above: Performed By: #### B MP ####[facility] Dgxffsqbeg4143 [place] [phone]. Emelina Navarro CO2 [Moles/Vol] 27.4 mmol/L Normal 21.0-32.0 [facility] Comment on above: Performed By: #### B MP ####[facility] Vecsqquilj[address] [place], [place] [address]Dr. Emelina Navarro Creatinine [Mass/Vol] 1.54 mg/dL Critically high 0.70-1.30 [facility] Comment on above: Performed By: #### B MP ####[facility] Zavqjhnjpu[address] [place], [place] [address]Dr. Emelina Ramon EGFR-AF ZIMBABWEAN 55 mL/min/1.73m2 Critically low >=60 [facility] Comment on above: Performed By: #### B MP ####[facility] Fevgdivnrk6710 [place] [address]Dr. Emelina Ramon EGFR-NON AF ZIMBABWEAN 45 mL/min/1.73m2 Critically low >=60 [facility] Comment on above: Performed By: #### B MP ####[facility] Bblvyyaqxh1182 [place] [phone]. Emelina Navarro Glucose [Mass/Vol] 115 mg/dL Critically high 74-106 [facility] Comment on above: Performed By: #### B MP ####[facility] Ripxhkotix4069 [place] [address]Dr. Emelina Navarro Potassium [Moles/Vol] 3.7 mmol/L Normal 3.5-5.1 [facility] Comment on above: Performed By: #### B MP ####[facility] Aoxrazjpxz1900 [place] [address]Dr. Emelina Navarro Sodium [Moles/Vol] 137 mmol/L Normal 136-145 [facility] Comment on above: Performed By: #### B MP ####[facility] Tdepezlnwq3483 [place] [phone]. Emelina Navarro Urea nitrogen [Mass/Vol] 40.0 mg/dL Critically high 7.0-18.0 [facility] Comment on above: Performed By: #### B MP ####[facility] Xiyecblwkj8958 [place] [address]Dr. Emelina Ramon Urea nitrogen/Creatinine [Mass ratio] 26.0 mg/mg Normal [facility] Comment on above: Performed By: #### B MP ####[facility] Ptagyxmtnf3691 [place] [address]Dr. Emelina Navarro XR CHEST 1 Von 01-02-2023 XR CHEST 1 V Normal [facility] BNPon 12-26-2022 Natriuretic peptide B (Bld) [Mass/Vol] 9102.0 pg/mL Critically high <=900.0 [facility] Comment on above: Performed By: #### B ASSEMBLY RIVETER ####[facility] Rjwzfwcjro2254 [place] [address]Dr. Emelina Navarro Office Visiton 12-26-2022 Follow-up visit [id number] Adwoa Porter 1955 M Date Provider Department Center 12/26/2022 MASSIMO DYE [facility] Family History Problem Relation Age of Onset Diabetes Mother Hypertension Mother Coronary artery disease Mother Family Status - Relation Status Age at Mother Level of Service:47304 [place] OFFICE/OUTPATIENT ESTABLISHED MOD MDM 30-39 MIN Reason for Visit and Comments: Congestive Heart Failure [127] Normal [facility] PROF CHEM 8 (BAS METB)on Anion gap [Moles/Vol] 14.4 mmol/L Normal [facility] Comment on above: Performed By: #### B MP ####[facility] Ivlxtvmuor7938 [place] [phone]. Emelina Navarro Calcium [Mass/Vol] 8.6 mg/dL Normal 8.5-10.1 [facility] Comment on above: Performed By: #### B MP ####[facility] Ikvwxdcywo3389 [place] [phone]. Emelina Navarro Chloride [Moles/Vol] 101 mmol/L Normal 98-107 [facility] Comment on above: Performed By: #### B MP ####[facility] Jfmfukwhcm6657 [place] [phone]. Emelina Navarro CO2 [Moles/Vol] 27.2 mmol/L Normal 21.0-32.0 [facility] Comment on above: Performed By: #### B MP ####[facility] Ungopjkjlt5424 [place] [address]Dr. Emelina Navarro Creatinine [Mass/Vol] 1.69 mg/dL Critically high 0.70-1.30 [facility] Comment on above: Performed By: #### B MP ####[facility] Dpkxrqquow6042 [place] [phone]. Emelina Navarro EGFR-AF ZIMBABWEAN 49 mL/min/1.73m2 Critically low >=60 [facility] Comment on above: Performed By: #### B MP ####[facility] Dfyrxysley2051 [place] [phone]. Emelina Navarro EGFR-NON AF ZIMBABWEAN 41 mL/min/1.73m2 Critically low >=60 [facility] Comment on above: Performed By: #### B MP ####[facility] Srvuzifjkd2012 [place] [phone]. Emelian Navarro Glucose [Mass/Vol] 163 mg/dL Critically high 74-106 [facility] Comment on above: Performed By: #### B MP ####[facility] Zfmclydtsc9614 [place] [address]Dr. Emelina Navarro Potassium [Moles/Vol] 3.6 mmol/L Normal 3.5-5.1 [facility] Comment on above: Performed By: #### B MP ####[facility] Aqgckhurhs5201 [place], [place] [address]Fg. Emelina Navarro Sodium [Moles/Vol] 139 mmol/L Normal 136-145 [facility] [facility] Comment on above: Performed By: #### B MP ####[facility] [address] [place], [place] [address]Jw. Emelina Navarro Urea nitrogen [Mass/Vol] 36.0 mg/dL Critically high 7.0-18.0 [facility] Comment on above: Performed By: #### B MP ####[facility] Folmdtjpa[address] [place], [place] [address]Kl. Emelina Navarro Urea nitrogen/Creatinine [Mass ratio] 21.3 mg/mg Normal [facility] Comment on above: Performed By: #### B MP ####[facility] Fpcilrezfd[address] [place], [place] [address]Jw. Emelina Navarro 37on 12-11-2022 37 I refilled [...] as possible. This would be at the [facility] physical therapy department. Check your weights [...] pill . -Call the cardiology nurse at [phone] Check your blood pressure and pulse daily [...] support stockings/socks. These can be found at [employer], or can be ordered from the Internet. My office will call you to schedule another appointment in about 4 weeks. This can be by phone or in the office. Kind regards, JOHAN Anderson [place] [facility] [place] office: [phone] [place] office: [phone] Normal [facility] Office Visiton 12-11-2022 Follow-up visit [id number] Adwoa Porter 1955 M Date Provider Department Center 12/11/2022 [id number] [facility] CARD [place] HeartVAS Family History Problem Relation Age of Onset Diabetes Mother Hypertension Mother Coronary artery disease Mother Family Status - Relation Status Age at Mother Level of Service:41938 [place] OFFICE/OUTPATIENT ESTABLISHED [facility] 10-19 MIN Reason for Visit and Comments: Congestive Heart Failure [127] Normal [facility] Albumin [Mass/volume] in Ser um or PlasmaOrdered By: Ethan Cummings on 12-02-2022 Albumin [Mass/Vol] 3.9 g/dL 3.2-5.5 [facility] Basophils Auto (Bld) [#/Vol] Ordered By: Ethan Cummings on 12-02-2022 Basophils (Bld) [#/Vol] 0.1 10*3/uL 0.0-0.2 [facility] Basophils/100 WBC Auto (Bld) Ordered By: Ethan Cummings on 12-02-2022 Basophils/100 WBC (Bld) 0.7 % . [facility] CT biopsyOrdered By: Ethan Cummings on 12-02-2022 Transferrin [Mass/Vol] 240 mg/dL 180-380 [facility] Creatinine and Glomerular fi ltration rate.predicted panel (S/P/Bld)Ordered By: Ethan Cummings on 12-02-2022 Creatinine [Mass/Vol] 1.58 mg/dL 0.64-1.27 [facility] Eosinophils Auto (Bld) [#/Vo l]Ordered By: Ethan Cummings on 12-02-2022 Eosinophils (Bld) [#/Vol] 0.4 10*3/uL 0.0-0.45 [facility] Eosinophils/100 WBC Auto (Bl d)Ordered By: Ethan Cummings on 12-02-2022 Eosinophils/100 WBC (Bld) 3.5 % . [facility] Erythrocyte distribution wid th Auto (RBC) [Ratio]Ordered By: Ethan Cummings on 12-02-2022 Erythrocyte distribution width (RBC) [Ratio] 19.6 % 12.0-14.8 [facility] Estimated glomerular filtrat ion rate (GFR) non- AmericanOrdered By: Ethan Cummings on 12-02-2022 GFR/1.73 sq M.predicted among non-blacks MDRD (S/P/Bld) [Vol rate/Area] 44 mL/Min [facility] Ferritin [Mass/volume] in Se rum or PlasmaOrdered By: Ethan Cummings on 12-02-2022 Ferritin [Mass/Vol] 85.7 ng/mL 23.9-336.2 [facility] Folate [Mass/volume] in Seru m or PlasmaOrdered By: Ethan Cummings on 12-02-2022 Folate [Mass/Vol] ng/mL >5.9 [facility] Comment on above: Folate reference ran ge: >5.9 ng/mlThe WHO technical consultation on folate and vitamin l42euuhzxyncttz has determined that folate concentrations lessthan 4 ng/ml are considered deficient. Globulin Calc (S) [Mass/Vol] Ordered By: Ethan Cummings on 12-02-2022 Globulin (S) [Mass/Vol] 3.7 g/dL [facility] Hematocrit Auto (Bld) [Volum e fraction]Ordered By: Ethan Cummings on 12-02-2022 Hematocrit (Bld) [Volume fraction] 47.4 % 38.8-50.0 [facility] Hemoglobin [Mass/volume] in BloodOrdered By: Ethan Cummings on 12-02-2022 Hemoglobin (Bld) [Mass/Vol] 15.3 g/dL 13.0-17.0 [facility] Iron [Mass/volume] in Serum or PlasmaOrdered By: Ethan Cummings on 12-02-2022 Iron [Mass/Vol] 96 ug/dL 40-160 [facility] Iron binding capacity [Mass/ volume] in Serum or PlasmaOrdered By: Ethan Cummings on 12-02-2022 Iron binding capacity [Mass/Vol] 336 ug/dL 255-450 [facility] Iron saturation [Mass Fracti on] in Serum or PlasmaOrdered By: Ethan Cummings on 12-02-2022 Iron saturation [Mass fraction] 28.6 % 20-50 [facility] Laboratory - Chemistry and C hemistry - challengeOrdered By: Ethan Cummings on 12-02-2022 Cobalamin (Vitamin B12) [Mass/Vol] 1521 pg/mL 180-914 [facility] Leukocytes [#/volume] correc morris for nucleated erythrocytes in Blood by Automated counOrdered By: Ethan Cummings on 12-02-2022 WBC corrected for nucl RBC Auto (Bld) [#/Vol] 11.8 10*3/uL 4.1-10.5 [facility] Lymphocytes Auto (Bld) [#/Vo l]Ordered By: Ethan Cummings on 12-02-2022 Lymphocytes (Bld) [#/Vol] 2.4 10*3/uL 1.00-4.8 [facility] Lymphocytes/100 WBC Auto (Bl d)Ordered By: Ethan Cummings on 12-02-2022 Lymphocytes/100 WBC (Bld) 20.5 % . [facility] MCH Auto (RBC) [Entitic mass ]Ordered By: Ethan Cummings on 12-02-2022 MCH (RBC) [Entitic mass] 28.3 pg 27.5-35.2 [facility] MCHC Auto (RBC) [Mass/Vol]Or dered By: Ethan Cummings on 12-02-2022 MCHC (RBC) [Mass/Vol] 32.3 g/dL 32.5-35.6 [facility] MCV Auto (RBC) [Entitic vol] Ordered By: Ethan Cummings on 12-02-2022 MCV (RBC) [Entitic vol] 87.5 fL 83.5-101 [facility] Monocytes Auto (Bld) [#/Vol] Ordered By: Ethan Cummings on 12-02-2022 Monocytes (Bld) [#/Vol] 1.0 10*3/uL 0.0-0.8 [facility] Monocytes/100 WBC Auto (Bld) Ordered By: Ethan Cummings on 12-02-2022 Monocytes/100 WBC (Bld) 8.2 % . [facility] Neutrophils Auto (Bld) [#/Vo l]Ordered By: Ethan Cummings on 12-02-2022 Neutrophils (Bld) [#/Vol] 7.9 10*3/uL 1.8-7.7 [facility] Neutrophils/100 WBC Auto (Bl d)Ordered By: Ethan Cummings on 12-02-2022 Neutrophils/100 WBC (Bld) 67.1 % . [facility] No Panel InformationOrdered By: Ethan Cummings on 12-02-2022 Estimated GFR () 53 mL/Min [facility] Comment on above: GFR estimated refere nce range: According to KDOQI guidelines, <60 ml/min/1.73m2 is sufficient to diagnose a patient with chronic kidney disease. Pharmacy Creatinine Clearance (Chem 53.88 [facility] Nucleated erythrocytes [Pres ence] in Blood by Automated countOrdered By: Ethan Cummings on 12-02-2022 Nucleated RBC Auto Ql (Bld) 0.1 /100{WBC} 0-0.5 [facility] Platelet mean volume Auto (B ld) [Entitic vol]Ordered By: Ethan Cummings on 12-02-2022 Platelet mean volume (Bld) [Entitic vol] 8.5 fL 6.6-10.1 [facility] Platelets Auto (Bld) [#/Vol] Ordered By: Ethan Cummings on 12-02-2022 Platelets (Bld) [#/Vol] 214 10*3/uL 150-450 [facility] Protein [Mass/volume] in Ser um or PlasmaOrdered By: Ethan Cummings on 12-02-2022 Protein [Mass/Vol] 7.6 g/dL 6.1-7.9 [facility] RBC Auto (Bld) [#/Vol]Ordere d By: Ethan Cummings on 12-02-2022 RBC (Bld) [#/Vol] 5.41 10*6/uL 3.90-5.60 [facility] Serum or plasma alanine valle otransferase measurement without P-5'-P (enzymatic activiOrdered By: Ethan Cummings on 12-02-2022 ALT No additional P-5'-P [Catalytic activity/Vol] 19 U/L 10-60 [facility] Serum or plasma albumin/glob ulin mass ratioOrdered By: Ethan Cummings on 12-02-2022 Albumin/Globulin [Mass ratio] 1.1 {ratio} [facility] Serum or plasma alkaline tosin sphatase measurement (enzymatic activity/volume)Ordered By: Ethan Cummings on 12-02-2022 ALP [Catalytic activity/Vol] 101 U/L 32-92 [facility] Serum or plasma anion gap de terminationOrdered By: Ethan Cummings on 12-02-2022 Anion gap [Moles/Vol] 13.2 mmol/L 6.0-15.0 [facility] Serum or plasma aspartate am inotransferase measurement (enzymatic activity/volume)Ordered By: Ethan Cummings on 12-02-2022 AST [Catalytic activity/Vol] 32 U/L 10-42 [facility] Serum or plasma calcium mike urement (mass/volume)Ordered By: Ethan Cummings on 12-02-2022 Calcium [Mass/Vol] 9.5 mg/dL 8.2-10.2 [facility] Serum or plasma chloride arash surement (moles/volume)Ordered By: Ethan Cummings on 12-02-2022 Chloride [Moles/Vol] 101 mmol/L 95-114 [facility] Serum or plasma glucose mike urement (mass/volume)Ordered By: Ethan Cummings on 12-02-2022 Glucose [Mass/Vol] 150 mg/dL 70-100 [facility] Comment on above: ADA recommended refe rence rangeRandom Glucose Reference Range is dependent on time and content of last meal. Glucose of more than 200 mg/dL in a nonstressed, ambulatory subject supports the diagnosis of Diabetes Mellitus. Serum or plasma potassium me asurement (moles/volume)Ordered By: Ethan Cummings on 12-02-2022 Potassium [Moles/Vol] 4.3 mmol/L 3.5-5.1 [facility] Serum or plasma sodium measu rement (moles/volume)Ordered By: Ethan Cummings on 12-02-2022 Sodium [Moles/Vol] 140 mmol/L 136-146 [facility] Serum or plasma total biliru bin measurement (mass/volume)Ordered By: Ethan Cummings on 12-02-2022 Bilirubin [Mass/Vol] 1.5 mg/dL 0.3-1.2 [facility] Comment on above: Samples from patient s who have taken Naproxen have shown spurious elevation in Total Bilirubin levels. A metabolite of Naproxen, O-desmethylnaproxen, has been shown to interfere with the Jesi-Ananya method for measuring Total Bilirubin. Serum or plasma total carbon dioxide measurement (moles/volume)Ordered By: Ethan Cummings on 12-02-2022 CO2 [Moles/Vol] 30.1 mmol/L 22.0-30.0 [facility] Serum or plasma urea nitroge n measurement (mass/volume)Ordered By: Ethan Cummings on 12-02-2022 Urea nitrogen [Mass/Vol] 22 mg/dL 9-23 [facility] WBC Auto (Bld) [#/Vol]Ordere d By: Ethan Cummings on 12-02-2022 WBC (Bld) [#/Vol] 11.8 10*3/uL 4.1-10.5 [facility] Office Visiton 12-01-2022 Follow-up visit [id number] Adwoa Porter Elicia 1955 M Date Provider Department Center 12/01/2022 Manuela6-CHAR MILLARD [facility] Family History Problem Relation Age of Onset Diabetes Mother Hypertension Mother Coronary artery disease Mother Family Status - Relation Status Age at Mother Level of Service:58883 [place] OFFICE/OUTPATIENT ESTABLISHED LOW MDM 20-29 MIN Normal [facility] PROF CHEM 8 (BAS METB)on Anion gap [Moles/Vol] 12.6 mmol/L Normal [facility] Comment on above: Performed By: #### B MP ####[facility] [address] [place] [address]Dr. Emelina Navarro Calcium [Mass/Vol] 9.0 mg/dL Normal 8.5-10.1 [facility] Comment on above: Performed By: #### B MP ####[facility] [address] [place] [address]Dr. Emelina Navarro Chloride [Moles/Vol] 99 mmol/L Normal 98-107 [facility] Comment on above: Performed By: #### B MP ####[facility] [address]uvgs[address] [place] [address]Dr. Emelina Navarro CO2 [Moles/Vol] 33.2 mmol/L Critically high 21.0-32.0 [facility] Comment on above: Performed By: #### B MP ####[facility] E[address] [place] [address]DrWesley Navarro Creatinine [Mass/Vol] 1.75 mg/dL Critically high 0.70-1.30 [facility] Comment on above: Performed By: #### B MP ####[facility] [address] [place], [place] [address]Dr. Emelina Navarro EGFR-AF ZIMBABWEAN 47 mL/min/1.73m2 Critically low >=60 [facility] Comment on above: Performed By: #### B MP ####[facility] [address] [place], [place] [address]Dr. Emelina Navarro EGFR-NON AF ZIMBABWEAN 39 mL/min/1.73m2 Critically low >=60 [facility] Comment on above: Performed By: #### B MP ####[facility] [address] [place] [address]Dr. Emelina Navarro Glucose [Mass/Vol] 132 mg/dL Critically high 74-106 [facility] Comment on above: Performed By: #### B MP ####[facility] [address]ocwn[address] [place] [address]Dr. Emelina Navarro Potassium [Moles/Vol] 3.8 mmol/L Normal 3.5-5.1 [facility] Comment on above: Performed By: #### B MP ####[facility] [address] [place] [address]Dr. Emelina Navarro Sodium [Moles/Vol] 141 mmol/L Normal 136-145 [facility] Comment on above: Performed By: #### B MP ####[facility] [address]cyjjw[address] [place] [address]Dr. Emelina Navarro Urea nitrogen [Mass/Vol] 22.0 mg/dL Critically high 7.0-18.0 [facility] Comment on above: Performed By: #### B MP ####[facility] [address] [place] [address]Dr. Emelina Navarro Urea nitrogen/Creatinine [Mass ratio] 12.6 mg/mg Normal [facility] Comment on above: Performed By: #### B MP ####[facility] [address] [place] [address]Dr. Emelina Navarro A1C HEMOGLOBINon 11-07-2022 HbA1c (Bld) [Mass fraction] 7.4 % [employer] Other Glucose - FINGER STICKon Glucose [Mass/Vol] 109 mg/dL [employer] Other HbA1c (Bld) [Mass fraction]o n 11-07-2022 A1C HEMOGLOBIN [employer] Other PROF CHEM 8 (BAS METB)on Anion gap [Moles/Vol] 12.2 mmol/L Normal [facility] Comment on above: Performed By: #### B MP ####[facility] [address] [place], [place] [address]Dr. Emelina Navarro Calcium [Mass/Vol] 8.7 mg/dL Normal 8.5-10.1 [facility] Comment on above: Performed By: #### B MP ####[facility] [address] [place], [place] [address]Dr. Emelina Navarro Chloride [Moles/Vol] 101 mmol/L Normal 98-107 [facility] Comment on above: Performed By: #### B MP ####[facility] [address] [place], [place] [address]Dr. Emelina Navarro CO2 [Moles/Vol] 29.9 mmol/L Normal 21.0-32.0 [facility] Comment on above: Performed By: #### B MP ####[facility] F[address]wlme[address] [place], [place] [address]Dr. Emelina Navarro Creatinine [Mass/Vol] 1.78 mg/dL Critically high 0.70-1.30 [facility] Comment on above: Performed By: #### B MP ####[facility] Kposofdteq[address] [place], [place] [address]Dr. Emelina Navarro EGFR-AF ZIMBABWEAN 46 mL/min/1.73m2 Critically low >=60 [facility] Comment on above: Performed By: #### B MP ####[facility] [address]ys[address] [place], [place] [address]Dr. Emelina Navarro EGFR-NON AF ZIMBABWEAN 38 mL/min/1.73m2 Critically low >=60 [facility] Comment on above: Performed By: #### B MP ####[facility] [address]jcuznr[address] [place], [place] [address]Dr. Emelina Navarro Glucose [Mass/Vol] 127 mg/dL Critically high 74-106 [facility] Comment on above: Performed By: #### B MP ####[facility] Mdierlwnav[address] [place], [place] [address]Dr. Emelina Navarro Potassium [Moles/Vol] 4.1 mmol/L Normal 3.5-5.1 [facility] Comment on above: Performed By: #### B MP ####[facility] [address]kelgjcx[address] [place] [id number]. Emelina Navarro Sodium [Moles/Vol] 139 mmol/L Normal 136-145 [facility] Comment on above: Performed By: #### B MP ####[facility] [address]fe[address]jwgtt[address] [place] [address]Dr. Emelina Navarro Urea nitrogen [Mass/Vol] 39.0 mg/dL Critically high 7.0-18.0 [facility] Comment on above: Performed By: #### B MP ####[facility] [address]we[address] [place], [place] [address]Dr. Emelina Navarro Urea nitrogen/Creatinine [Mass ratio] 21.9 mg/mg Normal [facility] Comment on above: Performed By: #### B MP ####[facility] [address]pm[address]ql[address] [place], [place] [address]Dr. Emelina Navarro BNPon 10-03-2022 Natriuretic peptide B (Bld) [Mass/Vol] 7092.0 pg/mL Critically high <=900.0 [facility] Comment on above: Performed By: #### H STROPN, BNP, CMP ####[facility] [address] [place], [place] [address]Dr. Emelina Navarro CBC AUTO DIFFon 10-03-2022 BASO # 0.0 103/ul Normal 0.0-0.1 [facility] Comment on above: Performed By: #### C BC ####[facility] [address]epzc[address] [place] [address]Dr. Emelina Navarro Basophils/100 WBC (Bld) 0.3 % Normal 0.2-2.0 [facility] Comment on above: Performed By: #### C BC ####[facility] [address]ottxvmgj[address] [place] [address]Dr. Emelina Navarro EO # 0.3 103/ul Normal 0.0-0.7 [facility] Comment on above: Performed By: #### C BC ####[facility] [address]tkcbmr[address] [place] [id number]. Emelina Navarro Eosinophils/100 WBC (Bld) 2.5 % Normal 0.9-7.0 [facility] Comment on above: Performed By: #### C BC ####[facility] [address]ctncjgsrp[address] [place] [address]Dr. Emelina Navarro Erythrocyte distribution width (RBC) [Ratio] 16.1 % Critically high 11.0-15.0 [facility] Comment on above: Performed By: #### C BC ####[facility] [address] [place], [place] [address]Dr. Emelina Navarro Hematocrit (Bld) [Volume fraction] 40.4 % Critically low 42.0-54.0 [facility] Comment on above: Performed By: #### C BC ####[facility] [address]re[address] [place], [place] [address]Dr. Emelina Nvaarro Hemoglobin (Bld) [Mass/Vol] 12.9 g/dL Critically low 14.0-18.0 [facility] Comment on above: Performed By: #### C BC ####[facility] [address]trrersxzr[address] [place], [place] [address]Dr. Emelina Navarro IG # 0.05 10e3/ul Critically high 0.00-0.03 [facility] Comment on above: Performed By: #### C BC ####[facility] [address]udb[address] [place], [place] [address]Dr. Emelina Navarro IG % 0.4 % Normal 0.0-0.5 [facility] Comment on above: Performed By: #### C BC ####[facility] [address]zbiv[address] [place], [place] [address]Dr. Emelina Navarro LYMPH # 1.5 103/ul Normal 1.2-3.8 [facility] Comment on above: Performed By: #### C BC ####[facility] [address] [place], [place] [address]Dr. Emelina Navarro Lymphocytes/100 WBC (Bld) 13.1 % Critically low 20.5-60.0 [facility] Comment on above: Performed By: #### C BC ####[facility] [address] [place] [address]Dr. Emelina Navarro MANUAL DIFF REQ NO Normal [facility] Comment on above: Performed By: #### C BC ####[facility] [address] [place] [id number]. Emelina Navarro MCH (RBC) [Entitic mass] 28.9 pg Normal 25.9-34.0 [facility] Comment on above: Performed By: #### C BC ####[facility] Q[address]dwltlge[address] [place] [id number]. Emelina Navarro MCHC (RBC) [Mass/Vol] 31.9 g/dL Normal 29.9-35.2 [facility] Comment on above: Performed By: #### C BC ####[facility] [address] [place] [address]Dr. Emelina Navarro MCV (RBC) [Entitic vol] 90.6 fL Normal 80.0-94.0 [facility] Comment on above: Performed By: #### C BC ####[facility] [address] [place], [place] [address]Dr. Emelina Navarro MONO # 0.8 103/ul Normal 0.3-0.8 [facility] Comment on above: Performed By: #### C BC ####[facility] [address]av[address] [place] [address]Dr. Emelina Navarro Monocytes/100 WBC (Bld) 7.0 % Normal 1.7-12.0 [facility] Comment on above: Performed By: #### C BC ####[facility] [address] [place] [address]Dr. Emelina Navarro NEUT # 8.8 103/ul Critically high 1.4-6.5 [facility] Comment on above: Performed By: #### C BC ####[facility] [address]ziq[address] [place] [address]Dr. Emelina Navarro Neutrophils/100 WBC (Bld) 76.7 % Critically high 43.0-75.0 [facility] Comment on above: Performed By: #### C BC ####[facility] [address] [place], [place] [address]Au. Emelina Navarro Platelet mean volume (Bld) [Entitic vol] 9.9 fL Normal 9.5-13.5 [facility] Comment on above: Performed By: #### C BC ####[facility] [address] [place], [place] [address]Fi. Emelina Navarro PLT 201 103/ul Normal 150-450 [facility] Comment on above: Performed By: #### C BC ####[facility] [address] [place], [place] [address]Ay. Emelina Navarro RBC 4.46 106/ul Critically low 4.70-6.10 [facility] Comment on above: Performed By: #### C BC ####[facility] Qtr[address]zlsesm[address] [place], [place] [address]Wa. Emelina Navarro WBC 11.4 103/ul Critically high 4.0-11.0 [facility] Comment on above: Performed By: #### C BC ####[facility] [address] [place], [place] [address]Im. Emelina Navarro Covid-19 PCR ([facility])on 09-19 SARS-CoV-2 (COVID-19) RNA RADHA+probe Ql (Unsp spec) Not detected Normal NOT DETECTED [facility] Comment on above: Result Comment: When [...] for this test is supported by the Senior It Specialist of Health and Human Service's declaration that [...] be used). Performed By: #### C VDTBH ####[facility] [address] [place] [address]Dr. Emelina Navarro PROF 14(COMP METB)on 10-03- 022 Albumin [Mass/Vol] 3.1 g/dL Critically low 3.4-5.0 [facility] Comment on above: Performed By: #### H STROPN, BNP, CMP ####[facility] [address]bx[address] [place] [address]Dr. Emelina Navarro Albumin/Globulin [Mass ratio] 0.8 {ratio} Normal [facility] Comment on above: Performed By: #### H STROPN, BNP, CMP ####[facility] [address] [place] [address]Dr. Emelina Navarro ALP [Catalytic activity/Vol] 118 U/L Critically high 46-116 [facility] Comment on above: Performed By: #### H STROPN, BNP, CMP ####[facility] E[address]ftaodlt[address] [place] [address]Dr. Emelina Navarro ALT [Catalytic activity/Vol] 22 U/L Normal 16-63 [facility] Comment on above: Performed By: #### H STROPN, BNP, CMP ####[facility] Is[address]efau[address] [place] [address]Dr. Emelina Navarro Anion gap [Moles/Vol] 8.6 mmol/L Normal [facility] Comment on above: Performed By: #### H STROPN, BNP, CMP ####[facility] [address]vpayinf[address] [place] [address]Dr. Emelina Navarro AST [Catalytic activity/Vol] 23 U/L Normal 15-37 [facility] Comment on above: Performed By: #### H STROPN, BNP, CMP ####[facility] Cbwsiaqyhr[address] [place] [address]Dr. Emelina Navarro Bilirubin [Mass/Vol] 1.0 mg/dL Normal 0.2-1.0 [facility] Comment on above: Performed By: #### H STROPN, BNP, CMP ####[facility] [address]vlfjiwdr[address] [place] [address]Dr. Emelina Navarro Calcium [Mass/Vol] 8.4 mg/dL Critically low 8.5-10.1 [facility] Comment on above: Performed By: #### H STROPN, BNP, CMP ####[facility] [address]xdfalmqqc[address] [place] [address]Dr. Emelina Navarro Chloride [Moles/Vol] 101 mmol/L Normal 98-107 [facility] Comment on above: Performed By: #### H STROPN, BNP, CMP ####[facility] [address] [place], [place] [address]Dr. Emelina Navarro CO2 [Moles/Vol] 33.3 mmol/L Critically high 21.0-32.0 [facility] Comment on above: Performed By: #### H STROPN, BNP, CMP ####[facility] [address] [place], [place] [address]Dr. Emelina Navarro Creatinine [Mass/Vol] 1.52 mg/dL Critically high 0.70-1.30 [facility] Comment on above: Performed By: #### H STROPN, BNP, CMP ####[facility] [address] [place], [place] [address]Dr. Emelina Navarro EGFR-AF ZIMBABWEAN 56 mL/min/1.73m2 Critically low >=60 [facility] Comment on above: Performed By: #### H STROPN, BNP, CMP ####[facility] [address]als[address] [place], [place] [address]Dr. Emelina Navarro EGFR-NON AF ZIMBABWEAN 46 mL/min/1.73m2 Critically low >=60 [facility] Comment on above: Performed By: #### H STROPN, BNP, CMP ####[facility] [address] [place], [place] [address]Dr. Emelina Navarro Globulin (S) [Mass/Vol] 4.1 g/dL Normal [facility] Comment on above: Performed By: #### H STROPN, BNP, CMP ####[facility] [address] [place] [address]Dr. Emelina Navarro Glucose [Mass/Vol] 141 mg/dL Critically high 74-106 [facility] Comment on above: Performed By: #### H STROPN, BNP, CMP ####[facility] Z[address]jwdowv[address] [place] [address]Dr. Emelina Navarro Potassium [Moles/Vol] 3.9 mmol/L Normal 3.5-5.1 [facility] Comment on above: Performed By: #### H STROPN, BNP, CMP ####[facility] Fqstlaynoj[address] [place] [address]Dr. Emelina Navarro Protein [Mass/Vol] 7.2 g/dL Normal 6.4-8.2 [facility] Comment on above: Performed By: #### H STROPN, BNP, CMP ####[facility] Gvtwesqcdy[address] [place] [address]Dr. Emelina Navarro Sodium [Moles/Vol] 139 mmol/L Normal 136-145 [facility] Comment on above: Performed By: #### H STROPN, BNP, CMP ####[facility] Xkrjyalife[address] [place] [address]Dr. Emelina Navarro Urea nitrogen [Mass/Vol] 26.0 mg/dL Critically high 7.0-18.0 [facility] Comment on above: Performed By: #### H STROPN, BNP, CMP ####[facility] Cvebynhdry[address] [place] [address]Dr. Emelina Navarro Urea nitrogen/Creatinine [Mass ratio] 17.1 mg/mg Normal [facility] Comment on above: Performed By: #### H STROPN, BNP, CMP ####[facility] Wbkrduxpbp0964 [place] [address]Dr. Emelina Navarro PROTIMEon 10-03-2022 INR Coag (PPP) [Relative time] 1.76 {INR} Normal [facility] Comment on above: Performed By: #### P T, PTT ####[facility] Ldxpgzecnp24[address] [place] [address]Dr. Emelina Navarro INR GUIDELINES SEE BELOW Normal [facility] Comment on above: Result Comment: WENDY RED INR: 2.0 - 3.0 CONDITIONS NOT LISTED BELOW 2.5 - 3.5 FOR PROSTHETIC HEART VALVE REPLACEMENT 2.5 - 3.5 RECURRENT THROMBOSIS Performed By: #### P T, PTT ####[facility] Bjskngmuek38[address] [place] [id number]. Emelina Navarro PT Coag (PPP) [Time] 18.3 s Critically high 9.0-11.6 [facility] Comment on above: Performed By: #### P T, PTT ####[facility] Oeupxflnhj87[address] [place] [id number]. Emelina Navarro PTTon 10-03-2022 aPTT Coag (Bld) [Time] 33.9 s Normal 22.3-36.2 [facility] Comment on above: Performed By: #### P T, PTT ####[facility] Gzipjjnncg70[address] [place] [address]Dr. Emelina Navarro TROPONIN, HIGH SENSITIVITYon 10-03-2022 HSTROP 40.2 pg/mL Normal 4.0-76.1 [facility] Comment on above: Result Comment: CUT- OFF POINTS HAVE BEEN ESTABLISHED BASED ON THE FOURTH UNIVERSAL DEFINITIONS OF MYOCARDIALINFARCTION. THE UPPER REFERENCE LIMIT (URL) OF TROPONIN, DEFINED THE 99TH PERCENTILE OFcTnI DISTRIBUTION IN A REFERENCE POPULATION, HAS BEEN CONFIRMED THE DECISION THRESHOLDFOR W[place] DIAGNOSIS. Performed By: #### H STROPN, BNP, CMP ####[facility] Bqopevvxsu5[address] [place] [address]Dr. Emelina Navarro XR CHEST 1 Von 10-03-2022 XR CHEST 1 V Normal [facility] PTH INTACTon 09-19-2022 PTH, Intact 52 pg/mL Normal 15-65 [facility] Comment on above: Performed By: #### P THINT ####[facility] Tkwdsokfgl3184 [place] [address]Dr. Emelina Navarro FERRITINon 09-18-2022 Ferritin [Mass/Vol] 92.0 ng/mL Normal 26.0-388.0 [facility] Comment on above: Performed By: #### V ITAD, FERR, FETIBC ####[facility] Kpawvanhkl23[address] [place] [phone]. Emelina Navarro HEMOGRAM AND PLATELon 2021 Hematocrit (Bld) [Volume fraction] 44.3 % Normal 42.0-54.0 [facility] Comment on above: Performed By: #### H H ####[facility] Tzfbbhbixx5438 [place] [address]Dr. Emelina Navarro Hemoglobin (Bld) [Mass/Vol] 14.0 g/dL Normal 14.0-18.0 [facility] Comment on above: Performed By: #### H H ####[facility] Icelqzgqoa7084 [place] [address]Dr. Emelina Navarro MCH (RBC) [Entitic mass] 29.0 pg Normal 25.9-34.0 [facility] Comment on above: Performed By: #### H H ####[facility] Nudscwhics[address] [place], [place] [address]Dr. Emelina Navarro MCHC (RBC) [Mass/Vol] 31.6 g/dL Normal 29.9-35.2 [facility] Comment on above: Performed By: #### H H ####[facility] Lcpiwfiwne[address] [place], [place] [address]Dr. Emelina Navarro MCV (RBC) [Entitic vol] 91.7 fL Normal 80.0-94.0 [facility] Comment on above: Performed By: #### H H ####[facility] Nkhayecqgp8423 [place] [address]Dr. Emelina Navarro PLT 187 103/ul Normal 150-450 [facility] Comment on above: Performed By: #### H H ####[facility] Wemmbeyytw9467 [place] [address]Dr. Emelina Navarro RBC 4.83 106/ul Normal 4.70-6.10 [facility] Comment on above: Performed By: #### H H ####[facility] Uhqajsmbmi8104 [place] [address]Dr. Emelina Navarro WBC 13.9 103/ul Critically high 4.0-11.0 [facility] Comment on above: Performed By: #### H H ####[facility] Uolziewxuv2966 [place] [address]Dr. Emelina Navarro IRON AND TIBCon 09-18-2022 % SATURATION 28.9 % Normal [facility] Comment on above: Performed By: #### V ITAD, FERR, FETIBC ####[facility] Azwesppoxc5201 [place] [address]Dr. Emelina Navarro Iron [Mass/Vol] 76.0 ug/dL Normal 65.0-175.0 [facility] Comment on above: Performed By: #### V ITAD, FERR, FETIBC ####[facility] Wcikvmoxfd9[address] [place], [place] [address]Dr. Emelina Navarro TIBC DIRECT 263.0 ug/dL Normal 250.0-450. 0 [facility] Comment on above: Performed By: #### V ITAD, FERR, FETIBC ####[facility] Kiphargnlr17[address] [place] [address]Dr. Emelina Navarro MAGNESIUMon 09-18-2022 Magnesium [Mass/Vol] 2.3 mg/dL Normal 1.8-2.4 [facility] Comment on above: Performed By: #### R ENAL, URIC, MG ####[facility] Uuuzhfvkrl7313 [place] [address]Dr. Emelina Navarro RENAL FUNCTION PANELon 09-18 Albumin [Mass/Vol] 3.5 g/dL Normal 3.4-5.0 [facility] Comment on above: Performed By: #### R ENAL, URIC, MG ####[facility] Jtsizpfjco3299 [place] [address]Dr. Eemlina Navarro Calcium [Mass/Vol] 8.4 mg/dL Critically low 8.5-10.1 [facility] Comment on above: Performed By: #### R ENAL, URIC, MG ####[facility] Ajhoxxemkf0025 [place] [address]Dr. Awildanitza Navarro Chloride [Moles/Vol] 100 mmol/L Normal 98-107 [facility] Comment on above: Performed By: #### R ENAL, URIC, MG ####[facility] Vrzwiahgje4114 [place] [address]Dr. Emelina Navarro CO2 [Moles/Vol] 31.0 mmol/L Normal 21.0-32.0 [facility] Comment on above: Performed By: #### R ENAL, URIC, MG ####[facility] Mspmhzyuvx1723 [place] [address]Dr. Emelina Navarro Creatinine [Mass/Vol] 1.63 mg/dL Critically high 0.70-1.30 [facility] Comment on above: Performed By: #### R ENAL, URIC, MG ####[facility] Qgoyupslig[address] [place], [place] [address]Dr. Emelina Navarro EGFR-AF ZIMBABWEAN 51 mL/min/1.73m2 Critically low >=60 [facility] Comment on above: Performed By: #### R ENAL, URIC, MG ####[facility] Kyomifvxju46[address] [place], [place] [address]Dr. Emelina Navarro EGFR-NON AF ZIMBABWEAN 42 mL/min/1.73m2 Critically low >=60 [facility] Comment on above: Performed By: #### R ENAL, URIC, MG ####[facility] Yaheartazf[address] [place], [place] [address]Dr. Emelina Navarro Glucose [Mass/Vol] 135 mg/dL Critically high 74-106 [facility] Comment on above: Performed By: #### R ENAL, URIC, MG ####[facility] Lydzekqiek6[address] [place], [place] [address]Dr. Emelina Navarro Phosphate [Mass/Vol] 3.4 mg/dL Normal 2.6-4.7 [facility] Comment on above: Performed By: #### R ENAL, URIC, MG ####[facility] Ycpczrxari[address] [place], [place] [address]Dr. Emelina Navarro Potassium [Moles/Vol] 4.5 mmol/L Normal 3.5-5.1 [facility] Comment on above: Performed By: #### R ENAL, URIC, MG ####[facility] Blunpvqlvf6641 [place] [address]Dr. Emelina Navarro Sodium [Moles/Vol] 137 mmol/L Normal 136-145 [facility] Comment on above: Performed By: #### R ENAL, URIC, MG ####[facility] Yhuccdvxmk1528 [place] [address]Dr. Emelina Navarro Urea nitrogen [Mass/Vol] 26.0 mg/dL Critically high 7.0-18.0 [facility] Comment on above: Performed By: #### R ENAL, URIC, MG ####[facility] Jhaxtaivhw1949 [place] [address]Dr. Emelina Navarro UA RANDOM W/MICROSCOPICon BACTERIA NONE SEEN Normal NONE SEEN [facility] Comment on above: Performed By: #### U AMIC ####[facility] Oqbynhpovd[address] [place], [place] [address]Dr. Emelina Navarro Bilirubin Ql (U) Negative Normal NEGATIVE [facility] Comment on above: Performed By: #### U AMIC ####[facility] Zhgxweridw[address] [place], [place] [address]Dr. Emelina Navarro CAST NONE SEEN Normal NONE SEEN [facility] Comment on above: Performed By: #### U AMIC ####[facility] Kupdpmzvdv[address] [place], [place] [address]Dr. Emelina Navarro Clarity (U) CLEAR Normal CLEAR [facility] Comment on above: Performed By: #### U AMIC ####[facility] Buxfwsvjwf[address] [place], [place] [address]Dr. Emelina Navarro Color (U) LT. YELLOW Normal YELLOW [facility] Comment on above: Performed By: #### U AMIC ####[facility] Ymjkdinedw[address] [place], [place] [address]Dr. Emelina Navarro Crystals LM Nom (Urine sed) NONE SEEN Normal NONE SEEN [facility] Comment on above: Performed By: #### U AMIC ####[facility] Mjcgmdbkxi[address] [place], [place] [address]Dr. Emelina Navarro Epithelial cells LM Ql (Urine sed) NONE SEEN Normal NONE SEEN /RARE [facility] Comment on above: Performed By: #### U AMIC ####[facility] Mcdhlahovj2857 [place] [address]Dr. Emelina Navarro Glucose Ql (U) >1000 Abnormal NEGATIVE [facility] Comment on above: Performed By: #### U AMIC ####[facility] Lrifyxubkc1316 [place] [address]Dr. Emelina Navarro Hemoglobin Ql (U) Negative Normal NEGATIVE [facility] Comment on above: Performed By: #### U AMIC ####[facility] Fyifomnicr9658 [place] [address]Dr. Emelina Navarro Ketones Ql (U) Negative Normal NEGATIVE [facility] Comment on above: Performed By: #### U AMIC ####[facility] Yrkkqskfkz8278 [place] [address]Dr. Emelina Navarro LEUKOCYTES Negative Normal NEGATIVE [facility] Comment on above: Performed By: #### U AMIC ####[facility] Kzqaqsegch[address] [place], [place] [address]Dr. Emelina Navarro MUCOUS NONE SEEN Normal NONE SEEN [facility] Comment on above: Performed By: #### U AMIC ####[facility] Bvmzclngml[address] [place], [place] [address]Dr. Emelina Ramon Nitrite Ql (U) Negative Normal NEGATIVE [facility] Comment on above: Performed By: #### U AMIC ####[facility] Aztyyldyrq[address] [place], [place] [address]Dr. Emelina Navarro pH (U) 6.0 [pH] Normal 5-9 [facility] Comment on above: Performed By: #### U AMIC ####[facility] Jcotilqwku0639 [place] [address]Dr. Emelina Navarro RBC 0-2 Normal 0-2 [facility] Comment on above: Performed By: #### U AMIC ####[facility] Gstgqhcfsi8815 [place] [address]Dr. Emelina Navarro SPEC GRAVITY 1.010 Normal 1.005-<=1. 025 [facility] Comment on above: Performed By: #### U AMIC ####[facility] Xvefckefwn7893 [place] [address]Dr. Emelina Navarro UA PROTEIN Negative Normal NEGATIVE/ TRACE [facility] Comment on above: Performed By: #### U AMIC ####[facility] Koyxgkpncs7447 [place] [address]Dr. Emelina Navarro Urobilinogen Qn (U) 0.2 {Ashley'U}/dL Normal 0.2 - 1. 0 [facility] Comment on above: Performed By: #### U AMIC ####[facility] [address]nnfntwm[address] [place], [place] [address]Dr. Emelina Navarro WBC NONE SEEN Normal NONE SEEN [facility] Comment on above: Performed By: #### U AMIC ####[facility] Xaebhjdnpi3376 [place] [address]Dr. Emelina Navarro URIC ACID SERUMon 09-18-2022 Urate [Mass/Vol] 9.2 mg/dL Critically high 3.5-7.2 [facility] Comment on above: Performed By: #### R ENAL, URIC, MG ####[facility] Ewdfivbqfi[address] [place], [place] [address]Dr. Emelina Navarro URINE T PROTEIN CREAT RATIOo n 09-18-2022 Protein (U) [Mass/Vol] 17.5 mg/dL Critically high <=12.0 [facility] Comment on above: Performed By: #### U RTPCR ####[facility] Qcuaidjtqf[address] [place], [place] [address]Dr. Emelina Navarro UR PROT CREAT RAT 0.61 Normal [facility] Comment on above: Performed By: #### U RTPCR ####[facility] [address]ewytjhufl[address] [place], [place] [address]Dr. Emelina Navarro URINE CREAT 28.53 mg/dL Normal 20.00-300. 00 [facility] Comment on above: Performed By: #### U RTPCR ####[facility] Tsfaolqcpx[address] [place], [place] [address]Dr. Emelina Navarro VITAMIN D 25 OHon 09-18-2022 VIT D 25-OH 49.6 ng/mL Normal [facility] Comment on above: Performed By: #### V ANA WEISS FETIBC ####[facility] Wmdoepplwi59[address] [place] [id number] Navarro VIT D RANGES SEE BELOW Normal [facility] Comment on above: Result Comment: <20 ng/mL Vit D deficient 20 - <30 ng/mL Vit D insufficient 30 - 100 ng/mL Vit D sufficient >100 ng/mL Potential Toxicity Performed By: #### V ANA WEISS FETIBC ####[facility] Egxjizqpra7301 [place] [address]Dr. Emelina Navarro A1C HEMOGLOBINon 07-31-2022 HbA1c (Bld) [Mass fraction] 6.7 % [facility] [employer] Other Glucose - FINGER STICKon Glucose [Mass/Vol] 338 mg/dL [employer] Other HbA1c (Bld) [Mass fraction]o n 07-31-2022 A1C HEMOGLOBIN [facility] [employer] Other BNPon 07-19-2022 Natriuretic peptide B (Bld) [Mass/Vol] 7571.0 pg/mL Critically high <=900.0 [facility] Comment on above: Performed By: #### B MP, BNP ####[facility] Yltneeeqsn6369 [place] [address]DrWesley Navarro PROF CHEM 8 (BAS METB)on Anion gap [Moles/Vol] 11.6 mmol/L Normal [facility] Comment on above: Performed By: #### B MP, BNP ####[facility] Cswgbedlqh7072 [place] [address]DrWesley Navarro Calcium [Mass/Vol] 9.2 mg/dL Normal 8.5-10.1 [facility] Comment on above: Performed By: #### B MP, BNP ####[facility] Sqyrvfegzm0152 [place] [address]DrWesley Navarro Chloride [Moles/Vol] 102 mmol/L Normal 98-107 [facility] Comment on above: Performed By: #### B MP, BNP ####[facility] Qcibcfukld[address] [place], [place] [address]Dr. Emelina Navarro CO2 [Moles/Vol] 30.6 mmol/L Normal 21.0-32.0 [facility] Comment on above: Performed By: #### B MP, BNP ####[facility] Yqplcmektd[address] [place], [place] [address]Dr. Emelina Navarro Creatinine [Mass/Vol] 1.72 mg/dL Critically high 0.70-1.30 [facility] Comment on above: Performed By: #### B MP, BNP ####[facility] Jepxnndndn[address] [place], [place] [address]Dr. Emelina Navarro EGFR-AF ZIMBABWEAN 48 mL/min/1.73m2 Critically low >=60 [facility] Comment on above: Performed By: #### B MP, BNP ####[facility] Wywlrgjtsg[address] [place], [place] [address]Dr. Emelina Navarro EGFR-NON AF ZIMBABWEAN 40 mL/min/1.73m2 Critically low >=60 [facility] Comment on above: Performed By: #### B MP, BNP ####[facility] Lzgeqgjrce[address] [place], [place] [address]Dr. Emelina Navarro Glucose [Mass/Vol] 76 mg/dL Normal 74-106 [facility] Comment on above: Performed By: #### B MP, BNP ####[facility] Surtftrxwr40[address] [place], [place] [address]Dr. Emelina Navarro Potassium [Moles/Vol] 4.2 mmol/L Normal 3.5-5.1 [facility] Comment on above: Performed By: #### B MP, BNP ####[facility] Wzhpreliyx86[address] [place], [place] [address]Dr. Emelina Navarro Sodium [Moles/Vol] 140 mmol/L Normal 136-145 [facility] Comment on above: Performed By: #### B MP, BNP ####[facility] Rkkvcgtzzz[address] [place], [place] [address]Dr. Emelina Navarro Urea nitrogen [Mass/Vol] 19.0 mg/dL Critically high 7.0-18.0 [facility] Comment on above: Performed By: #### B MP, BNP ####[facility] Rpzhmbxopj1058 [place] [address]Dr. Emelina Ramon Urea nitrogen/Creatinine [Mass ratio] 11.0 mg/mg Normal [facility] Comment on above: Performed By: #### B MP, BNP ####[facility] Itcqjucmtz8360 [place] [address]Dr. Emelina Ramon CBC AUTO DIFFon 06-16-2022 BASO # 0.0 103/ul Normal 0.0-0.1 [facility] Comment on above: Performed By: #### C BC ####[facility] Vfxirqvoei[address] [place], [place] [address]Dr. Awildanitza Navarro Basophils/100 WBC (Bld) 0.1 % Critically low 0.2-2.0 [facility] Comment on above: Performed By: #### C BC ####[facility] Zkzbvsvbhi[address] [place], [place] [address]Dr. Emelina Ramon EO # 0.1 103/ul Normal 0.0-0.7 [facility] Comment on above: Performed By: #### C BC ####[facility] Ckwrtmckwe[address] [place], [place] [address]Dr. Emelina Ramon Eosinophils/100 WBC (Bld) 0.4 % Critically low 0.9-7.0 [facility] Comment on above: Performed By: #### C BC ####[facility] Yusaxqsxkp[address] [place], [place] [address]Dr. Emelina Navarro Erythrocyte distribution width (RBC) [Ratio] 17.1 % Critically high 11.0-15.0 [facility] Comment on above: Performed By: #### C BC ####[facility] Kjwlqucjgu[address] [place], [place] [address]Dr. Emelina Navarro Hematocrit (Bld) [Volume fraction] 44.7 % Normal 42.0-54.0 [facility] Comment on above: Performed By: #### C BC ####[facility] Tvuozexgge9416 [place] [id number]. Emelina Navarro Hemoglobin (Bld) [Mass/Vol] 14.5 g/dL Normal 14.0-18.0 [facility] Comment on above: Performed By: #### C BC ####[facility] Mnepzoblvh0425 [place] [address]Dr. Emelina Navarro IG # 0.07 10e3/ul Critically high 0.00-0.03 [facility] Comment on above: Performed By: #### C BC ####[facility] Yiotljgccy4445 [place] [address]Dr. Emelina Navarro IG % 0.4 % Normal 0.0-0.5 [facility] Comment on above: Performed By: #### C BC ####[facility] Nxqgueliej[address] [place], [place] [address]Dr. Awildanitza Navarro LYMPH # 2.0 103/ul Normal 1.2-3.8 [facility] Comment on above: Performed By: #### C BC ####[facility] Dzlaekbmwr6707 [place] [address]Dr. Emelina Navarro Lymphocytes/100 WBC (Bld) 12.1 % Critically low 20.5-60.0 [facility] Comment on above: Performed By: #### C BC ####[facility] Qccrktwibk8722 [place] [address]Dr. Awildanitza Navarro MANUAL DIFF REQ NO Normal [facility] Comment on above: Performed By: #### C BC ####[facility] Ugvafxcvis[address] [place], [place] [address]Dr. Emelina Navarro MCH (RBC) [Entitic mass] 28.2 pg Normal 25.9-34.0 [facility] Comment on above: Performed By: #### C BC ####[facility] [address]mlqxwljo[address] [place], [place] [address]Dr. Emelina Navarro MCHC (RBC) [Mass/Vol] 32.4 g/dL Normal 29.9-35.2 [facility] Comment on above: Performed By: #### C BC ####[facility] Dkacgndwbr3369 [place] [id number]. Emelina Navarro MCV (RBC) [Entitic vol] 86.8 fL Normal 80.0-94.0 [facility] Comment on above: Performed By: #### C BC ####[facility] Fvuijvyvke3626 [place] [id number]. Emelina Navarro MONO # 0.7 103/ul Normal 0.3-0.8 [facility] Comment on above: Performed By: #### C BC ####[facility] Rktckiypdt[address] [place], [place] [address]Dr. Emelina Navarro Monocytes/100 WBC (Bld) 4.3 % Normal 1.7-12.0 [facility] Comment on above: Performed By: #### C BC ####[facility] Crtixvafda[address] [place], [place] [address]Dr. Emelina Navarro NEUT # 13.4 103/ul Critically high 1.4-6.5 [facility] Comment on above: Performed By: #### C BC ####[facility] Mvgiyxctoi6[address] [place], [place] [address]Dr. Emelina Navarro Neutrophils/100 WBC (Bld) 82.7 % Critically high 43.0-75.0 [facility] Comment on above: Performed By: #### C BC ####[facility] Hefgqgcsyv[address] [place], [place] [address]Dr. Emelina Navarro Platelet mean volume (Bld) [Entitic vol] 9.5 fL Normal 9.5-13.5 [facility] Comment on above: Performed By: #### C BC ####[facility] [address]bcebkxidj[address] [place], [place] [address]Dr. Emelina Navarro PLT 218 103/ul Normal 150-450 [facility] Comment on above: Performed By: #### C BC ####[facility] Eunnojuaud[address] [place], [place] [address]Dr. Emelina Ramon RBC 5.15 106/ul Normal 4.70-6.10 [facility] Comment on above: Performed By: #### C BC ####[facility] Nawewvnrna[address] [place] [id number]. Emelina Navarro WBC 16.2 103/ul Critically high 4.0-11.0 [facility] Comment on above: Performed By: #### C BC ####[facility] Ioktoxuetd3661 [place] [address]Dr. Emelina Navarro PROF 14(COMP METB)on 022 Albumin [Mass/Vol] 3.3 g/dL Critically low 3.4-5.0 [facility] Comment on above: Performed By: #### C MP ####[facility] Mxodmdchnh9942 [place] [address]Dr. Emelina Navarro Albumin/Globulin [Mass ratio] 0.8 {ratio} Normal [facility] Comment on above: Performed By: #### C MP ####[facility] Fmdwbsjkji2336 [place] [address]Dr. Emelina Navarro ALP [Catalytic activity/Vol] 81 U/L Normal 46-116 [facility] Comment on above: Performed By: #### C MP ####[facility] Ihrwjbuvvr7669 [place] [address]Dr. Emelina Navarro ALT [Catalytic activity/Vol] 34 U/L Normal 16-63 [facility] Comment on above: Performed By: #### C MP ####[facility] Rpuedqikvi7253 [place] [address]Dr. Emelina Navarro Anion gap [Moles/Vol] 14.1 mmol/L Normal [facility] Comment on above: Performed By: #### C MP ####[facility] Skltehmlen8068 [place] [address]Dr. Emelina Navarro AST [Catalytic activity/Vol] 22 U/L Normal 15-37 [facility] Comment on above: Performed By: #### C MP ####[facility] Qqtosaahah9817 [place] [address]Dr. Emelina Navarro Bilirubin [Mass/Vol] 1.0 mg/dL Normal 0.2-1.0 [facility] Comment on above: Performed By: #### C MP ####[facility] Dindfkpmwm1561 [place] [id number]. Emelina Navarro Calcium [Mass/Vol] 8.6 mg/dL Normal 8.5-10.1 [facility] Comment on above: Performed By: #### C MP ####[facility] Fpuhahseiw6148 [place] [phone]. Emelina Navarro Chloride [Moles/Vol] 98 mmol/L Normal 98-107 [facility] Comment on above: Performed By: #### C MP ####[facility] Iiaxphiuxx8428 [place] [id number]. Emelina Navarro CO2 [Moles/Vol] 28.0 mmol/L Normal 21.0-32.0 [facility] Comment on above: Performed By: #### C MP ####[facility] Odrbcpobar8621 [place] [phone]. Emelina Navarro Creatinine [Mass/Vol] 1.83 mg/dL Critically high 0.70-1.30 [facility] Comment on above: Performed By: #### C MP ####[facility] Izesmllbhi1944 [place] [address]Dr. Emelina Navarro EGFR-AF ZIMBABWEAN 45 mL/min/1.73m2 Critically low >=60 [facility] Comment on above: Performed By: #### C MP ####[facility] Jvcoqvxjrl7668 [place] [address]Dr. Emelina Ramon EGFR-NON AF ZIMBABWEAN 37 mL/min/1.73m2 Critically low >=60 [facility] Comment on above: Performed By: #### C MP ####[facility] Rsoyfyexun5646 [place] [phone]. Emelina Ramon Globulin (S) [Mass/Vol] 4.3 g/dL Normal [facility] Comment on above: Performed By: #### C MP ####[facility] Ebimpcrqit5418 [place] [phone]. Emelina Ramon Glucose [Mass/Vol] 173 mg/dL Critically high 74-106 [facility] Comment on above: Performed By: #### C MP ####[facility] Zezjcmkvhf1603 [place] [phone]. Emelina Navarro Potassium [Moles/Vol] 4.1 mmol/L Normal 3.5-5.1 [facility] Comment on above: Performed By: #### C MP ####[facility] Jyfpevwwlp0494 [place] [address]Dr. Emelina Navarro Protein [Mass/Vol] 7.6 g/dL Normal 6.4-8.2 [facility] Comment on above: Performed By: #### C MP ####[facility] Zpmkcjoykg[address] [place], [place] [address]Dr. Emelina Navarro Sodium [Moles/Vol] 136 mmol/L Normal 136-145 [facility] [facility] Comment on above: Performed By: #### C MP ####[facility] Ekwhynlact[address] [place], [place] [address]Dr. Emelina Navarro Urea nitrogen [Mass/Vol] 46.0 mg/dL Critically high 7.0-18.0 [facility] Comment on above: Performed By: #### C MP ####[facility] Ffwsdslljr[address] [place], [place] [address]Dr. Emelina Navarro Urea nitrogen/Creatinine [Mass ratio] 25.1 mg/mg Normal [facility] Comment on above: Performed By: #### C MP ####[facility] Pkokvtreti[address] [place], [place] [address]Dr. Emelina Navarro PROTIMEon 06-16-2022 INR Coag (PPP) [Relative time] 2.12 {INR} Normal [facility] Comment on above: Performed By: #### P T ####[facility] Ooxnckqonc[address] [place], [place] [address]Dr. Emelina Navarro INR GUIDELINES SEE BELOW Normal [facility] Comment on above: Result Comment: WENDY RED INR: 2.0 - 3.0 CONDITIONS NOT LISTED BELOW 2.5 - 3.5 FOR PROSTHETIC HEART VALVE REPLACEMENT 2.5 - 3.5 RECURRENT THROMBOSIS Performed By: #### P T ####[facility] Uxfwhkavml[address] [place], [place] [address]Dr. Emelina Navarro PT Coag (PPP) [Time] 21.8 s Critically high 9.0-11.6 [facility] Comment on above: Performed By: #### P T ####[facility] Ljejfmvssc[address] [place], [place] [address]Dr. Emelina Navarro BNPon 06-15-2022 Natriuretic peptide B (Bld) [Mass/Vol] 4304.0 pg/mL Critically high <=900.0 [facility] Comment on above: Performed By: #### B ASSEMBLY RIVETER ####[facility] Mupueaefbh[address] [place], [place] [address]Dr. Emelina Navarro CBC AUTO DIFFon 06-15-2022 BASO # 0.0 103/ul Normal 0.0-0.1 [facility] Comment on above: Performed By: #### C BC ####[facility] Laalfqrufb[address] [place], [place] [address]Dr. Emelina Navarro Basophils/100 WBC (Bld) 0.1 % Critically low 0.2-2.0 [facility] Comment on above: Performed By: #### C BC ####[facility] Fqjkscmmgi[address] [place], [place] [address]Dr. Emelina Navarro EO # 0.0 103/ul Normal 0.0-0.7 [facility] Comment on above: Performed By: #### C BC ####[facility] Eylylisqgr[address] [place], [place] [address]Dr. Emelina Navarro Eosinophils/100 WBC (Bld) 0.1 % Critically low 0.9-7.0 [facility] Comment on above: Performed By: #### C BC ####[facility] Mlcjvjpgma66[address] [place], [place] [address]Dr. Emelina Navarro Erythrocyte distribution width (RBC) [Ratio] 17.1 % Critically high 11.0-15.0 [facility] Comment on above: Performed By: #### C BC ####[facility] Pciuocvfqx[address] [place], [place] [address]Dr. Awildanitza Navarro Hematocrit (Bld) [Volume fraction] 40.9 % Critically low 42.0-54.0 [facility] Comment on above: Performed By: #### C BC ####[facility] [address]motpchfl[address] [place] [id number]. Emelina Navarro Hemoglobin (Bld) [Mass/Vol] 13.4 g/dL Critically low 14.0-18.0 [facility] Comment on above: Performed By: #### C BC ####[facility] Alopnymxyx[address] [place] [id number]. Emelina Navarro IG # 0.17 10e3/ul Critically high 0.00-0.03 [facility] Comment on above: Performed By: #### C BC ####[facility] Lrcwzzxtgo5553 [place] [address]Dr. Emelina Navarro IG % 0.8 % Critically high 0.0-0.5 [facility] Comment on above: Performed By: #### C BC ####[facility] Ydwdsmygbc7[address] [place], [place] [address]Dr. Emelina Navarro LYMPH # 1.4 103/ul Normal 1.2-3.8 [facility] Comment on above: Performed By: #### C BC ####[facility] Iycnvxeecq28[address] [place] [address]Dr. Emelina Navarro Lymphocytes/100 WBC (Bld) 6.8 % Critically low 20.5-60.0 [facility] Comment on above: Performed By: #### C BC ####[facility] Zbkijtnntd34[address] [place] [address]Dr. Emelina Navarro MANUAL DIFF REQ NO Normal [facility] Comment on above: Performed By: #### C BC ####[facility] Gscesagnrs7[address] [place], [place] [id number]. Emelina Navarro MCH (RBC) [Entitic mass] 28.6 pg Normal 25.9-34.0 [facility] Comment on above: Performed By: #### C BC ####[facility] Ojxyexyhkn4336 [place] [phone]. Emelina Navarro MCHC (RBC) [Mass/Vol] 32.8 g/dL Normal 29.9-35.2 [facility] Comment on above: Performed By: #### C BC ####[facility] Gpfbcoceqb3354 [place] [phone]. Emelina Navarro MCV (RBC) [Entitic vol] 87.2 fL Normal 80.0-94.0 [facility] Comment on above: Performed By: #### C BC ####[facility] Ugcnaihfma[address] [place] [phone]. Emelina Navarro MONO # 0.8 103/ul Normal 0.3-0.8 [facility] Comment on above: Performed By: #### C BC ####[facility] Rwffoprxsa9983 [place] [address]Dr. Emelina Navarro Monocytes/100 WBC (Bld) 3.8 % Normal 1.7-12.0 [facility] Comment on above: Performed By: #### C BC ####[facility] Pvhbxcluly[address] [place], [place] [address]Dr. Emelina Navarro NEUT # 17.9 103/ul Critically high 1.4-6.5 [facility] Comment on above: Performed By: #### C BC ####[facility] Ykllnbpobu5413 [place] [phone]. Emelina Navarro Neutrophils/100 WBC (Bld) 88.4 % Critically high 43.0-75.0 [facility] Comment on above: Performed By: #### C BC ####[facility] Zhyzrgltpl[address] [place], [place] [address]Dr. Emelina Navarro Platelet mean volume (Bld) [Entitic vol] 9.7 fL Normal 9.5-13.5 [facility] Comment on above: Performed By: #### C BC ####[facility] Yzgtlwgxai5177 [place] [phone]. Emelina Navarro PLT 211 103/ul Normal 150-450 [facility] Comment on above: Performed By: #### C BC ####[facility] Jbomqoybml9678 [place] [phone]. Emelina Ramon RBC 4.69 106/ul Critically low 4.70-6.10 [facility] Comment on above: Performed By: #### C BC ####[facility] Jfsyiquvye5096 [place] [address]Dr. Awildanitza Ramon WBC 20.2 103/ul Critically high 4.0-11.0 [facility] Comment on above: Performed By: #### C BC ####[facility] Dbrvqlbwky1466 [place] [address]Dr. Emelina Navarro PROF 14(COMP METB)on 022 Albumin [Mass/Vol] 2.9 g/dL Critically low 3.4-5.0 [facility] Comment on above: Performed By: #### C MP ####[facility] Oxgvbolukh4[address] [place] [address]Dr. Emelina Navarro Albumin/Globulin [Mass ratio] 0.7 {ratio} Normal [facility] Comment on above: Performed By: #### C MP ####[facility] Ukloeqnpwf[address] [place], [place] [address]Dr. Awildanitza Navarro ALP [Catalytic activity/Vol] 77 U/L Normal 46-116 [facility] Comment on above: Performed By: #### C MP ####[facility] Ygueazrlnu7[address] [place], [place] [address]Dr. Emelina Ramon ALT [Catalytic activity/Vol] 26 U/L Normal 16-63 [facility] Comment on above: Performed By: #### C MP ####[facility] Eawmdccixr8131 [place] [address]Dr. Emelina Navarro Anion gap [Moles/Vol] 13.2 mmol/L Normal [facility] Comment on above: Performed By: #### C MP ####[facility] Indodvumir4189 [place] [address]Dr. Emelina Navarro AST [Catalytic activity/Vol] 18 U/L Normal 15-37 [facility] Comment on above: Performed By: #### C MP ####[facility] Xqiuuavysc0315 [place] [address]Dr. Emelina Navarro Bilirubin [Mass/Vol] 0.8 mg/dL Normal 0.2-1.0 [facility] Comment on above: Performed By: #### C MP ####[facility] Gfyrutlbcp3915 [place] [phone]. Emelina Navarro Calcium [Mass/Vol] 8.4 mg/dL Critically low 8.5-10.1 [facility] Comment on above: Performed By: #### C MP ####[facility] Kxygwuykfj4652 [place] [address]Dr. Emelina Navarro Chloride [Moles/Vol] 101 mmol/L Normal 98-107 [facility] Comment on above: Performed By: #### C MP ####[facility] Oyalhepnse84[address] [place], [place] [address]Dr. Emelina Navarro CO2 [Moles/Vol] 27.9 mmol/L Normal 21.0-32.0 [facility] Comment on above: Performed By: #### C MP ####[facility] Xihkhcopvz25[address] [place], [place] [address]Dr. Emelina Navarro Creatinine [Mass/Vol] 1.90 mg/dL Critically high 0.70-1.30 [facility] Comment on above: Performed By: #### C MP ####[facility] Ubdyupffew[address] [place], [place] [address]Dr. Emelina Navarro EGFR-AF ZIMBABWEAN 43 mL/min/1.73m2 Critically low >=60 [facility] Comment on above: Performed By: #### C MP ####[facility] Tsnqutkppe[address] [place], [place] [address]Dr. Emelina Navarro EGFR-NON AF ZIMBABWEAN 36 mL/min/1.73m2 Critically low >=60 [facility] Comment on above: Performed By: #### C MP ####[facility] Dxqirugqbu7[address] [place], [place] [address]Dr. Emelina Navarro Globulin (S) [Mass/Vol] 3.9 g/dL Normal [facility] Comment on above: Performed By: #### C MP ####[facility] Gozzxkemug[address] [place], [place] [address]Dr. Emelina Navarro Glucose [Mass/Vol] 175 mg/dL Critically high 74-106 [facility] Comment on above: Performed By: #### C MP ####[facility] Febjlnitjx[address] [place] [address]Dr. Emelina Navarro Potassium [Moles/Vol] 4.1 mmol/L Normal 3.5-5.1 [facility] Comment on above: Performed By: #### C MP ####[facility] Aayzznumld0783 [place] [address]Dr. Emelina Navarro Protein [Mass/Vol] 6.8 g/dL Normal 6.4-8.2 [facility] Comment on above: Performed By: #### C MP ####[facility] Fwovgwzavs16[address] [place], [place] [address]Dr. Emelina Navarro Sodium [Moles/Vol] 138 mmol/L Normal 136-145 [facility] Comment on above: Performed By: #### C MP ####[facility] Vpdzreglsf[address] [place], [place] [address]Dr. Emelina Navarro Urea nitrogen [Mass/Vol] 46.0 mg/dL Critically high 7.0-18.0 [facility] Comment on above: Performed By: #### C MP ####[facility] Xhfbfsssrc92[address] [place], [place] [address]Dr. Emelina Navarro Urea nitrogen/Creatinine [Mass ratio] 24.2 mg/mg Normal [facility] Comment on above: Performed By: #### C MP ####[facility] Lusazcgiky[address] [place], [place] [address]Dr. Emelina Navarro PROTIMEon 06-15-2022 INR Coag (PPP) [Relative time] 3.34 {INR} Normal [facility] Comment on above: Performed By: #### P T ####[facility] Dcloesrntb4216[address] [place], [place] [address]Dr. Emelina Navarro INR GUIDELINES SEE BELOW Normal [facility] Comment on above: Result Comment: WENDY RED INR: 2.0 - 3.0 CONDITIONS NOT LISTED BELOW 2.5 - 3.5 FOR PROSTHETIC HEART VALVE REPLACEMENT 2.5 - 3.5 RECURRENT THROMBOSIS Performed By: #### P T ####[facility] Zmsuwzjfzt99[address] [place], [place] [address]Dr. Emelina Navarro PT Coag (PPP) [Time] 33.3 s Critically high 9.0-11.6 [facility] Comment on above: Performed By: #### P T ####[facility] Jqpxnxslgw2468 [place] [address]Dr. Emelina Navarro CBC AUTO DIFFon 06-14-2022 BASO # 0.0 103/ul Normal 0.0-0.1 [facility] Comment on above: Performed By: #### C BC ####[facility] Ytuyafkgpg8[address] [place], [place] [address]Dr. Emelina Navarro Basophils/100 WBC (Bld) 0.1 % Critically low 0.2-2.0 [facility] Comment on above: Performed By: #### C BC ####[facility] Xyrxhquohe[address] [place], [place] [address]Dr. Emelina Navarro EO # 0.0 103/ul Normal 0.0-0.7 [facility] Comment on above: Performed By: #### C BC ####[facility] Khytshfcfl[address] [place], [place] [address]Dr. Emelina Navarro Eosinophils/100 WBC (Bld) 0.0 % Critically low 0.9-7.0 [facility] Comment on above: Performed By: #### C BC ####[facility] Xbwhfnevhk[address] [place], [place] [address]Dr. Emelina Navarro Erythrocyte distribution width (RBC) [Ratio] 17.0 % Critically high 11.0-15.0 [facility] Comment on above: Performed By: #### C BC ####[facility] Cbullswcdx40[address] [place], [place] [address]Dr. Emelina Navarro Hematocrit (Bld) [Volume fraction] 40.2 % Critically low 42.0-54.0 [facility] Comment on above: Performed By: #### C BC ####[facility] Sletliqgpx[address] [place], [place] [address]Dr. Emelina Navarro Hemoglobin (Bld) [Mass/Vol] 13.0 g/dL Critically low 14.0-18.0 [facility] Comment on above: Performed By: #### C BC ####[facility] Ttdflwibom5[address] [place] [id number]. Emelina Navarro IG # 0.18 10e3/ul Critically high 0.00-0.03 [facility] Comment on above: Performed By: #### C BC ####[facility] Mpctpdwccg6900 [place] [address]Dr. Emelina Navarro IG % 0.8 % Critically high 0.0-0.5 [facility] Comment on above: Performed By: #### C BC ####[facility] Kcxwyjlqjr[address] [place], [place] [address]Dr. Emelina Navarro LYMPH # 1.1 103/ul Critically low 1.2-3.8 [facility] Comment on above: Performed By: #### C BC ####[facility] Pokdnlojsj9286 [place] [address]Dr. Emelina Navarro Lymphocytes/100 WBC (Bld) 5.4 % Critically low 20.5-60.0 [facility] Comment on above: Performed By: #### C BC ####[facility] Nmculiixdw4[address] [place], [place] [address]Dr. Emelina Navarro MANUAL DIFF REQ NO Normal [facility] Comment on above: Performed By: #### C BC ####[facility] Cskbomnfns[address] [place], [place] [address]Dr. Emelina Navarro MCH (RBC) [Entitic mass] 28.4 pg Normal 25.9-34.0 [facility] Comment on above: Performed By: #### C BC ####[facility] Gzjccmkiob[address] [place], [place] [address]Dr. Emelina Navarro MCHC (RBC) [Mass/Vol] 32.3 g/dL Normal 29.9-35.2 [facility] Comment on above: Performed By: #### C BC ####[facility] Gwioagfumr[address] [place], [place] [address]Dr. Emelina Navarro MCV (RBC) [Entitic vol] 88.0 fL Normal 80.0-94.0 [facility] Comment on above: Performed By: #### C BC ####[facility] Kabiuvnmke5916 [place] [phone]. Emelina Navarro MONO # 0.6 103/ul Normal 0.3-0.8 [facility] Comment on above: Performed By: #### C BC ####[facility] Besbznrjmw9419 [place] [address]Dr. Emelina Navarro Monocytes/100 WBC (Bld) 3.0 % Normal 1.7-12.0 [facility] Comment on above: Performed By: #### C BC ####[facility] Jthufksuwj9755 [place] [address]Dr. Emelina Navarro NEUT # 19.3 103/ul Critically high 1.4-6.5 [facility] Comment on above: Performed By: #### C BC ####[facility] Jijcveofyh0337 [place] [address]Dr. Emelina Navarro Neutrophils/100 WBC (Bld) 90.7 % Critically high 43.0-75.0 [facility] Comment on above: Performed By: #### C BC ####[facility] Xigybnnvpn1405 [place] [address]Dr. Emelina Navarro Platelet mean volume (Bld) [Entitic vol] 10.6 fL Normal 9.5-13.5 [facility] Comment on above: Performed By: #### C BC ####[facility] Ozunkmexvm9988 [place] [address]Dr. Emelina Navarro PLT 191 103/ul Normal 150-450 [facility] Comment on above: Performed By: #### C BC ####[facility] Xonbuotbta1861 [place] [address]Dr. Emelina Navarro RBC 4.57 106/ul Critically low 4.70-6.10 [facility] Comment on above: Performed By: #### C BC ####[facility] Unpsijzyod0575 [place] [address]Dr. Emelina Navarro WBC 21.3 103/ul Critically high 4.0-11.0 [facility] Comment on above: Performed By: #### C BC ####[facility] Anfhrnfmca3327 [place] [address]Dr. Emelina Navarro PROF 14(COMP METB)on 022 Albumin [Mass/Vol] 2.5 g/dL Critically low 3.4-5.0 [facility] Comment on above: Performed By: #### C MP ####[facility] Kgqyvbmimu9686 [place] [address]Dr. Emelina Navarro Albumin/Globulin [Mass ratio] 0.6 {ratio} Normal [facility] Comment on above: Performed By: #### C MP ####[facility] Xshtikglvo3[address] [place], [place] [address]Dr. Emelina Navarro ALP [Catalytic activity/Vol] 77 U/L Normal 46-116 [facility] Comment on above: Performed By: #### C MP ####[facility] Baqujtfokq[address] [place], [place] [address]Dr. Emelina Navarro ALT [Catalytic activity/Vol] 25 U/L Normal 16-63 [facility] Comment on above: Performed By: #### C MP ####[facility] Cirtafbelg60[address] [place], [place] [address]Dr. Emelina Navarro Anion gap [Moles/Vol] 12.5 mmol/L Normal [facility] Comment on above: Performed By: #### C MP ####[facility] Lihtkdgfym37[address] [place], [place] [address]Dr. Emelina Navarro AST [Catalytic activity/Vol] 34 U/L Normal 15-37 [facility] Comment on above: Performed By: #### C MP ####[facility] Mqvgrpinco0625[address] [place], [place] [address]Dr. Emelina Navarro Bilirubin [Mass/Vol] 0.9 mg/dL Normal 0.2-1.0 [facility] Comment on above: Performed By: #### C MP ####[facility] Tdsofuwkwu369[address] [place], [place] [address]Dr. Emelina Navarro Calcium [Mass/Vol] 8.1 mg/dL Critically low 8.5-10.1 [facility] Comment on above: Performed By: #### C MP ####[facility] Khrxxmqohd2057 [place] [phone]. Emelina Navarro Chloride [Moles/Vol] 101 mmol/L Normal 98-107 [facility] Comment on above: Performed By: #### C MP ####[facility] Zarsatyiqs0517 [place] [address]Dr. Emelina Navarro CO2 [Moles/Vol] 24.8 mmol/L Normal 21.0-32.0 [facility] Comment on above: Performed By: #### C MP ####[facility] Zrrgqucbkx01[address] [place], [place] [address]Dr. Emelina Navarro Creatinine [Mass/Vol] 1.93 mg/dL Critically high 0.70-1.30 [facility] Comment on above: Performed By: #### C MP ####[facility] Xaeptwkgti01[address] [place], [place] [address]Dr. Emelina Navarro EGFR-AF ZIMBABWEAN 42 mL/min/1.73m2 Critically low >=60 [facility] Comment on above: Performed By: #### C MP ####[facility] Weyzboguvy176[address] [place], [place] [address]Dr. Emelina Navarro EGFR-NON AF ZIMBABWEAN 35 mL/min/1.73m2 Critically low >=60 [facility] Comment on above: Performed By: #### C MP ####[facility] Kmfbvxdbnn77[address] [place], [place] [address]Dr. Emelina Navarro Globulin (S) [Mass/Vol] 3.9 g/dL Normal [facility] Comment on above: Performed By: #### C MP ####[facility] Fhjdryshvx4748 [place] [address]Dr. Emelina Navarro Glucose [Mass/Vol] 236 mg/dL Critically high 74-106 [facility] Comment on above: Performed By: #### C MP ####[facility] Gmyodsxfyw0724 [place] [address]Dr. Emelina Navarro Potassium [Moles/Vol] 5.3 mmol/L Critically high 3.5-5.1 [facility] Comment on above: Performed By: #### C MP ####[facility] Zjsgclscdg3416 [place] [address]Dr. Emelina Navarro Protein [Mass/Vol] 6.4 g/dL Normal 6.4-8.2 [facility] Comment on above: Performed By: #### C MP ####[facility] Qtycuyfhcj1374 [place] [address]Dr. Emelina Navarro Sodium [Moles/Vol] 133 mmol/L Critically low 136-145 [facility] Comment on above: Performed By: #### C MP ####[facility] Sjhbcpgvos[address] [place], [place] [address]Dr. Emelina Navarro Urea nitrogen [Mass/Vol] 43.0 mg/dL Critically high 7.0-18.0 [facility] Comment on above: Performed By: #### C MP ####[facility] Whsxzznynz32[address] [place], [place] [address]Dr. Emelina Navarro Urea nitrogen/Creatinine [Mass ratio] 22.3 mg/mg Normal [facility] Comment on above: Performed By: #### C MP ####[facility] Cvjfochwom22[address] [place], [place] [address]Dr. Emelina Navarro PROTIMEon 06-14-2022 INR Coag (PPP) [Relative time] 4.39 {INR} Critically high [facility] Comment on above: Performed By: #### P T ####[facility] Psobxrxmkm6966[address] [place], [place] [address]Dr. Emelina Navarro INR GUIDELINES SEE BELOW Normal [facility] Comment on above: Result Comment: WENDY RED INR: 2.0 - 3.0 CONDITIONS NOT LISTED BELOW 2.5 - 3.5 FOR PROSTHETIC HEART VALVE REPLACEMENT 2.5 - 3.5 RECURRENT THROMBOSIS Performed By: #### P T ####[facility] Fpptdttjiz70[address] [place], [place] [address]Dr. Emelina Navarro PT Coag (PPP) [Time] 43.0 s Critically high 9.0-11.6 [facility] Comment on above: Performed By: #### P T ####[facility] Cvaskpnomg95[address] [place], [place] [address]Dr. Emelina Navarro XR CHEST 1 Von 06-14-2022 XR CHEST 1 V Normal [facility] BNPon 06-13-2022 Natriuretic peptide B (Bld) [Mass/Vol] 9889.0 pg/mL Critically high <=900.0 [facility] Comment on above: Performed By: #### B MP, BNP ####[facility] Btvyfhttyk1223[address] [place], [place] [address]Dr. Emelina Navarro CBC AUTO DIFFon 06-13-2022 BASO # 0.0 103/ul Normal 0.0-0.1 [facility] Comment on above: Performed By: #### C BC ####[facility] Kotuonaxrk3438[address] [place], [place] [address]DrWesley Navarro Basophils/100 WBC (Bld) 0.1 % Critically low 0.2-2.0 [facility] Comment on above: Performed By: #### C BC ####[facility] Pyhgdptzue64[address] [place], [place] [address]DrWesley Navarro EO # 0.0 103/ul Normal 0.0-0.7 [facility] Comment on above: Performed By: #### C BC ####[facility] Dxpmiraffr[address] [place], [place] [address]Dr. Emelina Navarro Eosinophils/100 WBC (Bld) 0.0 % Critically low 0.9-7.0 [facility] Comment on above: Performed By: #### C BC ####[facility] Sucxnoyeyq75[address] [place], [place] [address]Dr. Emelina Navarro Erythrocyte distribution width (RBC) [Ratio] 17.4 % Critically high 11.0-15.0 [facility] Comment on above: Performed By: #### C BC ####[facility] Egyjkwimwx8439[address] [place], [place] [address]DrWesley Navarro Hematocrit (Bld) [Volume fraction] 43.5 % Normal 42.0-54.0 [facility] Comment on above: Performed By: #### C BC ####[facility] Jhpnzxqbib27[address] [place], [place] [address]DrWesley Navarro Hemoglobin (Bld) [Mass/Vol] 14.1 g/dL Normal 14.0-18.0 [facility] Comment on above: Performed By: #### C BC ####[facility] Ihclfuwukj0146 [place] [address]DrWesley Navarro IG # 0.15 10e3/ul Critically high 0.00-0.03 [facility] Comment on above: Performed By: #### C BC ####[facility] Wtorgwizgn6329 [place] [address]DrWesley Navarro IG % 0.8 % Critically high 0.0-0.5 [facility] Comment on above: Performed By: #### C BC ####[facility] K[address]pxuhvpkz[address] [place], [place] [address]DrWesley Navarro LYMPH # 0.9 103/ul Critically low 1.2-3.8 [facility] Comment on above: Performed By: #### C BC ####[facility] Lzmlxkprwa[address] [place], [place] [address]DrWesley Navarro Lymphocytes/100 WBC (Bld) 5.0 % Critically low 20.5-60.0 [facility] Comment on above: Performed By: #### C BC ####[facility] Wygdqlkkrv[address] [place], [place] [address]DrWesley Navarro MANUAL DIFF REQ NO Normal [facility] Comment on above: Performed By: #### C BC ####[facility] Ixlakhyebo[address] [place], [place] [address]DrWesley Navarro MCH (RBC) [Entitic mass] 28.8 pg Normal 25.9-34.0 [facility] Comment on above: Performed By: #### C BC ####[facility] Hdkfeuqoqs8[address] [place], [place] [address]DrWesley Navarro MCHC (RBC) [Mass/Vol] 32.4 g/dL Normal 29.9-35.2 [facility] Comment on above: Performed By: #### C BC ####[facility] Godotocqcc[address] [place], [place] [address]DrWesley Navarro MCV (RBC) [Entitic vol] 89.0 fL Normal 80.0-94.0 [facility] Comment on above: Performed By: #### C BC ####[facility] Trzwccxamn6076 [place] [address]DrWesley Emelina Navarro MONO # 0.1 103/ul Critically low 0.3-0.8 [facility] Comment on above: Performed By: #### C BC ####[facility] Iwtsjlqsjf[address] [place] [address]DrWesley Awildanitza Navarro Monocytes/100 WBC (Bld) 0.5 % Critically low 1.7-12.0 [facility] Comment on above: Performed By: #### C BC ####[facility] Evvgyanhbp[address] [place], [place] [address]DrWesley Emelina Navarro NEUT # 17.4 103/ul Critically high 1.4-6.5 [facility] Comment on above: Performed By: #### C BC ####[facility] Gvvrzpojnn[address] [place], [place] [address]Dr. Awildanitza Navarro Neutrophils/100 WBC (Bld) 93.6 % Critically high 43.0-75.0 [facility] Comment on above: Performed By: #### C BC ####[facility] Vbltygrbag09[address] [place], [place] [address]DrWesley Awildanitza Navarro Platelet mean volume (Bld) [Entitic vol] 9.8 fL Normal 9.5-13.5 [facility] Comment on above: Performed By: #### C BC ####[facility] Wdhwlhdaxb[address] [place], [place] [address]Dr. Awildanitza Ramon PLT 186 103/ul Normal 150-450 [facility] Comment on above: Performed By: #### C BC ####[facility] Bsuwozvaob34[address] [place], [place] [address]DrWesley Navarro RBC 4.89 106/ul Normal 4.70-6.10 [facility] Comment on above: Performed By: #### C BC ####[facility] Jsfskpkeyh[address] [place], [place] [address]DrWesley Navarro WBC 18.6 103/ul Critically high 4.0-11.0 [facility] Comment on above: Performed By: #### C BC ####[facility] Ceocktavic[address] [place], [place] [address]Dr. Emelina Navarro CT CHEST WO CONon 06-13-2022 CT CHEST WO CON Normal [facility] CULTURE SPUTUMon 06-13-2022 CULTURE SPUTUM Culture Observations : NORMAL RESPIRATORY CEDRIC. Normal [facility] Comment on above: Performed By: #### S PUTCX ####[facility] Eokujuomcr[address] [place], [place] [address]Dr. Emelina Navarro ECHOCARDIO M/2D COMPLETEon 0 06-13-2022 ECHOCARDIO M/2D COMPLETE Normal [facility] POINT OF CARE GLUCOSEon 05-20 Glucose [Mass/Vol] 255 mg/dL Critically high 74-106 [facility] Comment on above: Performed By: #### P OCGLUC ####[facility] Uazvhtcpzf058[address] [place], [place] [address]Dr. Emelina Navarro Glucose [Mass/Vol] 408 mg/dL Critically high 74-106 [facility] Comment on above: Performed By: #### P OCGLUC ####[facility] Zrkevhhmvg36[address] [place], [place] [address]Dr. Emelina Navarro PROF CHEM 8 (BAS METB)on Anion gap [Moles/Vol] 14.7 mmol/L Normal [facility] Comment on above: Performed By: #### B MP, BNP ####[facility] Pursribzsv7646[address] [place], [place] [address]Dr. Emelina Navarro Calcium [Mass/Vol] 8.3 mg/dL Critically low 8.5-10.1 [facility] Comment on above: Performed By: #### B MP, BNP ####[facility] Zyprdjpisj6925[address] [place], [place] [address]Dr. Emelina Navarro Chloride [Moles/Vol] 102 mmol/L Normal 98-107 [facility] Comment on above: Performed By: #### B MP, BNP ####[facility] Syuhpbeuin1518[address] [place], [place] [address]Dr. Emelina Navarro CO2 [Moles/Vol] 26.0 mmol/L Normal 21.0-32.0 [facility] Comment on above: Performed By: #### B MP, BNP ####[facility] Qwdjkundic6[address] [place] [address]Dr. Emelina Nvaarro Creatinine [Mass/Vol] 2.07 mg/dL Critically high 0.70-1.30 [facility] Comment on above: Performed By: #### B MP, BNP ####[facility] Gafyrgwcab5935[address] [place], [place] [address]Dr. Emelina Navarro EGFR-AF ZIMBABWEAN 39 mL/min/1.73m2 Critically low >=60 [facility] Comment on above: Performed By: #### B MP, BNP ####[facility] Cpjnwhsnfv5409[address] [place], [place] [address]Dr. Emelina Navarro EGFR-NON AF ZIMBABWEAN 32 mL/min/1.73m2 Critically low >=60 [facility] Comment on above: Performed By: #### B MP, BNP ####[facility] Vcurseciqk564[address] [place], [place] [address]Dr. Emelina Navarro Glucose [Mass/Vol] 245 mg/dL Critically high 74-106 [facility] Comment on above: Performed By: #### B MP, BNP ####[facility] Lxrvumdtix896[address] [place], [place] [address]Dr. Emelina Navarro Potassium [Moles/Vol] 4.7 mmol/L Normal 3.5-5.1 [facility] Comment on above: Performed By: #### B MP, BNP ####[facility] Ogvlcqkgvx7[address] [place] [address]Dr. Emelina Navarro Sodium [Moles/Vol] 138 mmol/L Normal 136-145 [facility] Comment on above: Performed By: #### B MP, BNP ####[facility] Geflbogekt9739[address] [place], [place] [address]Dr. Emelina Navarro Urea nitrogen [Mass/Vol] 30.0 mg/dL Critically high 7.0-18.0 [facility] Comment on above: Performed By: #### B MP, BNP ####[facility] Fohrjmxivn6[address] [place] [address]Dr. Emeilna Navarro Urea nitrogen/Creatinine [Mass ratio] 14.5 mg/mg Normal [facility] Comment on above: Performed By: #### B MP, BNP ####[facility] Tamkkdzokq1083 [place] [address]Dr. Emelina Navarro PROTIMEon 06-13-2022 INR Coag (PPP) [Relative time] 3.59 {INR} Normal [facility] Comment on above: Performed By: #### P T ####[facility] Lmbyxarfau[address] [place] [address]Dr. Emelina Navarro INR GUIDELINES SEE BELOW Normal [facility] Comment on above: Result Comment: WENDY RED INR: 2.0 - 3.0 CONDITIONS NOT LISTED BELOW 2.5 - 3.5 FOR PROSTHETIC HEART VALVE REPLACEMENT 2.5 - 3.5 RECURRENT THROMBOSIS Performed By: #### P T ####[facility] Octynugkgw74[address] [place], [place] [address]Dr. Emelina Navarro PT Coag (PPP) [Time] 35.7 s Critically high 9.0-11.6 [facility] Comment on above: Performed By: #### P T ####[facility] Ojhfinalzh033[address] [place] [address]Dr. Emelina Navarro SPUTUM GRAM STAINon 06-13-20 COMMENTS Normal [facility] Comment on above: Performed By: #### S PUTGS ####[facility] Ppvuikqfpz5136 [place] [address]Dr. Emelina Navarro DIPHTHEROIDS Normal [facility] Comment on above: Performed By: #### S PUTGS ####[facility] Xhxnckxplr80[address] [place] [address]Dr. Emelina Navarro EPITHELIALS <25 Normal [facility] Comment on above: Performed By: #### S PUTGS ####[facility] Twhgimaxvq30[address] [place] [address]Dr. Emelina Navarro FUNGAL ELEMENTS Normal [facility] Comment on above: Performed By: #### S PUTGS ####[facility] Nkazfqrnpo0[address] [place], [place] [address]Dr. Awildanitza Ramon GRAM NEG BACILLI Normal [facility] Comment on above: Performed By: #### S PUTGS ####[facility] Upakrrgnae4[address] [place], [place] [address]Dr. Awildanitza Ramon GRAM NEG DIPPLOCOCCI Normal [facility] Comment on above: Performed By: #### S PUTGS ####[facility] Ilnswsnotz1901[address] [place], [place] [address]Dr. Emelina Navarro GRAM POS BACILLI Normal [facility] Comment on above: Performed By: #### S PUTGS ####[facility] Lprtjvwsga7[address] [place], [place] [address]Dr. Emelina Navarro GRAM POSITIVE COCCI RARE Normal [facility] Comment on above: Performed By: #### S PUTGS ####[facility] Xuhvpgvfkh8167[address] [place], [place] [address]Dr. Emelina Navarro WBC (Bld) [#/Vol] 10*3/uL Normal [facility] Comment on above: Performed By: #### S PUTGS ####[facility] Xrfuttpmtw65[address] [place], [place] [address]Dr. Awildanitza Ramon XR CHEST 1 Von 06-13-2022 XR CHEST 1 V Normal [facility] BNPon 06-12-2022 Natriuretic peptide B (Bld) [Mass/Vol] 6268.0 pg/mL Critically high <=900.0 [facility] Comment on above: Performed By: #### B ASSEMBLY RIVETER, CMP ####[facility] Xnbbmxzfct6[address] [place], [place] [address]Dr. Emelina Navarro CBC AUTO DIFFon 06-12-2022 BASO # 0.1 103/ul Normal 0.0-0.1 [facility] Comment on above: Performed By: #### C BC ####[facility] Ifgoivwvvi[address] [place], [place] [address]Dr. Emelina Navarro Basophils/100 WBC (Bld) 0.3 % Normal 0.2-2.0 [facility] Comment on above: Performed By: #### C BC ####[facility] R[address]zayvmzaf59[address] [place] [address]Dr. Emelina Navarro EO # 0.1 103/ul Normal 0.0-0.7 [facility] Comment on above: Performed By: #### C BC ####[facility] Xgkruvyfft1766 [place] [address]Dr. Emelina Navarro Eosinophils/100 WBC (Bld) 0.4 % Critically low 0.9-7.0 [facility] Comment on above: Performed By: #### C BC ####[facility] Hembyjqktk1040[address] [place], [place] [address]Dr. Emelina Navarro Erythrocyte distribution width (RBC) [Ratio] 17.7 % Critically high 11.0-15.0 [facility] Comment on above: Performed By: #### C BC ####[facility] Iepyjvsvwh[address] [place], [place] [address]Dr. Emelina Navarro Hematocrit (Bld) [Volume fraction] 44.4 % Normal 42.0-54.0 [facility] Comment on above: Performed By: #### C BC ####[facility] Sbwryvaftp6[address] [place], [place] [address]Dr. Emelina Navarro Hemoglobin (Bld) [Mass/Vol] 14.3 g/dL Normal 14.0-18.0 [facility] Comment on above: Performed By: #### C BC ####[facility] Cerehqipeg35[address] [place] [address]Dr. Emelina Navarro IG # 0.11 10e3/ul Critically high 0.00-0.03 [facility] Comment on above: Performed By: #### C BC ####[facility] Wamdzyngck060[address] [place], [place] [address]Dr. Emelina Navarro IG % 0.5 % Normal 0.0-0.5 [facility] Comment on above: Performed By: #### C BC ####[facility] Rxvfcpqfbm0[address] [place], [place] [address]Dr. Awildanitza Navarro LYMPH # 1.7 103/ul Normal 1.2-3.8 [facility] Comment on above: Performed By: #### C BC ####[facility] Qztzgagrtv9[address] [place] [address]Dr. Emelina Ramon Lymphocytes/100 WBC (Bld) 8.4 % Critically low 20.5-60.0 [facility] Comment on above: Performed By: #### C BC ####[facility] Rtvnnxieiw55[address] [place] [address]Dr. Awildanitza Navarro MANUAL DIFF REQ NO Normal [facility] Comment on above: Performed By: #### C BC ####[facility] Ionbmlmjia0089 [place] [phone]. Emelina Ramon MCH (RBC) [Entitic mass] 28.3 pg Normal 25.9-34.0 [facility] Comment on above: Performed By: #### C BC ####[facility] Xxyvxycxzi9449 [place] [address]Dr. Emelina Ramon MCHC (RBC) [Mass/Vol] 32.2 g/dL Normal 29.9-35.2 [facility] Comment on above: Performed By: #### C BC ####[facility] Vnftrxlaaq5427 [place] [address]Dr. Emelina Ramon MCV (RBC) [Entitic vol] 87.9 fL Normal 80.0-94.0 [facility] Comment on above: Performed By: #### C BC ####[facility] Fqwoewndps3598 [place] [address]Dr. Emelina Navarro MONO # 1.4 103/ul Critically high 0.3-0.8 [facility] Comment on above: Performed By: #### C BC ####[facility] Wmwoqffhzf5[address] [place] [address]Dr. Awildanitza Navarro Monocytes/100 WBC (Bld) 7.1 % Normal 1.7-12.0 [facility] Comment on above: Performed By: #### C BC ####[facility] Snrpfnanlq9564 [place] [address]Dr. Emelina Navarro NEUT # 16.8 103/ul Critically high 1.4-6.5 [facility] Comment on above: Performed By: #### C BC ####[facility] Sxwtnddrsu2849 [place] [address]Dr. Emelina Navarro Neutrophils/100 WBC (Bld) 83.3 % Critically high 43.0-75.0 [facility] Comment on above: Performed By: #### C BC ####[facility] Odkgcrinkc9665 [place] [phone]. Emelina Navarro Platelet mean volume (Bld) [Entitic vol] 10.0 fL Normal 9.5-13.5 [facility] Comment on above: Performed By: #### C BC ####[facility] Mwnzaeyokh5[address] [place] [address]Dr. Emelina Navarro PLT 227 103/ul Normal 150-450 [facility] Comment on above: Performed By: #### C BC ####[facility] Asgkuaqdrn9087 [place] [phone]. Emelina Navarro RBC 5.05 106/ul Normal 4.70-6.10 [facility] Comment on above: Performed By: #### C BC ####[facility] Pchvgvpngz0783 [place] [address]Dr. Emelina Navarro WBC 20.2 103/ul Critically high 4.0-11.0 [facility] Comment on above: Performed By: #### C BC ####[facility] Kfolpuoqyj0852 [place] [phone]. Emelina Navarro CULTURE BLOODon 06-12-2022 Microscopic examination of blood, culture Culture Observations: NO GROWTH AT 5 DAYS. Normal [facility] Comment on above: Performed By: #### B LDCX2 ####[facility] Pqkjkwwxhw[address] [place] [phone]. Emelina Navarro Microscopic examination of blood, culture Culture Observations: NO GROWTH AT 5 DAYS. Normal [facility] Comment on above: Performed By: #### B LDCX1 ####[facility] Xpjnqduoqe6070 [place] [phone]. Emelina Navarro Covid-19 PCR [facility]on [facility]20 SARS-CoV-2 (COVID-19) RNA RADHA+probe Ql (Unsp spec) Not detected Normal NOT DETECTED [facility] Comment on above: Result Comment: When [...] for this test is supported by the [place] of Health and Human Service's declaration that [...] longer be used). Performed By: #### C [facility] ####[facility] Kivbfvkwnk23[address] [place], [place] [address]Dr. Emelina Navarro ER URINE PROFILEon 2 Bilirubin Ql (U) Negative Normal NEGATIVE [facility] Comment on above: Performed By: #### E RUR ####[facility] Oettqvzjpm11[address] [place], [place] [address]Dr. Emelina Navarro Clarity (U) CLEAR Normal CLEAR [facility] Comment on above: Performed By: #### E RUR ####[facility] Qcmhcztajo1666[address] [place], [place] [address]Dr. Emelina Navarro Color (U) YELLOW Normal YELLOW [facility] Comment on above: Performed By: #### E RUR ####[facility] Wtoyqvfedy4500[address] [place], [place] [address]Dr. Emelina Navarro ERUAHD A micrscopic examina tion will be performed if indicated. Normal [facility] Comment on above: Performed By: #### E RUR ####[facility] Xjioolsjvk4385[address] [place], [place] [address]Dr. Emelina Navarro Glucose Ql (U) >1000 Abnormal NEGATIVE [facility] Comment on above: Performed By: #### E RUR ####[facility] Nrmjnoyphi1096 [place] [address]Dr. Emelina Navarro Hemoglobin Ql (U) Negative Normal NEGATIVE [facility] Comment on above: Performed By: #### E RUR ####[facility] Ehukebpkjr4970[address] [place], [place] [address]Dr. Emelina Navarro Ketones Ql (U) Negative Normal NEGATIVE [facility] Comment on above: Performed By: #### E RUR ####[facility] Hyilqqppbl6307[address] [place], [place] [address]Dr. Emelina Ramon LEUKOCYTES Negative Normal NEGATIVE [facility] Comment on above: Performed By: #### E RUR ####[facility] Gbrbutohfq6899[address] [place], [place] [address]Dr. Emelina Navarro Nitrite Ql (U) Negative Normal NEGATIVE [facility] Comment on above: Performed By: #### E RUR ####[facility] Znvnfhhnsy[address] [place], [place] [address]Dr. Awildanitza Ramon pH (U) 6.0 [pH] Normal 5-9 [facility] Comment on above: Performed By: #### E RUR ####[facility] Qrprlbtqnk49[address] [place], [place] [address]Dr. Emelina Navarro SPEC GRAVITY 1.010 Normal 1.005-<=1. 025 [facility] Comment on above: Performed By: #### E RUR ####[facility] Vrkcjghwep[address] [place], [place] [address]Dr. Emelina Navarro UA PROTEIN Negative Normal NEGATIVE/ TRACE [facility] Comment on above: Performed By: #### E RUR ####[facility] Jnqlbotnuc649[address] [place], [place] [address]Dr. Emelina Navarro UR MICRO IND NOT INDICATED Normal [facility] Comment on above: Performed By: #### E RUR ####[facility] Emoexhnbfe488[address] [place], [place] [address]Dr. Emelina Navarro Urobilinogen Qn (U) 1.0 {Ashley'U}/dL Normal 0.2 - 1. 0 [facility] Comment on above: Performed By: #### E RUR ####[facility] Anghnhozqb2313 [place] [address]Dr. Emelina Navarro LACTATE/LACTIC ACIDon 2021 Lactate [Moles/Vol] 1.2 mmol/L Normal 0.4-1.9 [facility] Comment on above: Performed By: #### L ACT ####[facility] Viutaetwhq08[address] [place], [place] [address]Dr. Emelina Navarro PROF 14(COMP METB)on 022 Albumin [Mass/Vol] 3.4 g/dL Normal 3.4-5.0 [facility] Comment on above: Performed By: #### B ASSEMBLY RIVETER, CMP ####[facility] Ntpcdvflwz2723[address] [place], [place] [address]Dr. Emelina Navarro Albumin/Globulin [Mass ratio] 0.8 {ratio} Normal [facility] Comment on above: Performed By: #### B ASSEMBLY RIVETER, CMP ####[facility] Byvfmkquiy05[address] [place], [place] [address]Dr. Emelina Navarro ALP [Catalytic activity/Vol] 100 U/L Normal 46-116 [facility] Comment on above: Performed By: #### B ASSEMBLY RIVETER, CMP ####[facility] Mbragzmzxp495[address] [place], [place] [address]Dr. Emelina Navarro ALT [Catalytic activity/Vol] 26 U/L Normal 16-63 [facility] Comment on above: Performed By: #### B ASSEMBLY RIVETER, CMP ####[facility] Kmtdnzmkbc09[address] [place], [place] [address]Dr. Emelina Navarro Anion gap [Moles/Vol] 11.3 mmol/L Normal [facility] Comment on above: Performed By: #### B ASSEMBLY RIVETER, CMP ####[facility] Azhlonjqwv0616[address] [place], [place] [address]Dr. Emelina Navarro AST [Catalytic activity/Vol] 19 U/L Normal 15-37 [facility] Comment on above: Performed By: #### B ASSEMBLY RIVETER, CMP ####[facility] Svqitnyopn8174[address] [place], [place] [address]Dr. Emelina Navarro Bilirubin [Mass/Vol] 1.4 mg/dL Critically high 0.2-1.0 [facility] Comment on above: Performed By: #### B ASSEMBLY RIVETER, CMP ####[facility] Djlrwqkhka1564 [place] [phone]. Emelina Navarro Calcium [Mass/Vol] 9.1 mg/dL Normal 8.5-10.1 [facility] Comment on above: Performed By: #### B ASSEMBLY RIVETER, CMP ####[facility] Ivsqtzksbf2197 [place] [phone]. Emelina Navarro Chloride [Moles/Vol] 103 mmol/L Normal 98-107 [facility] Comment on above: Performed By: #### B ASSEMBLY RIVETER, CMP ####[facility] Dyryfvvmtz2235[address] [place], [place] [address]Dr. Emelina Navarro CO2 [Moles/Vol] 27.8 mmol/L Normal 21.0-32.0 [facility] Comment on above: Performed By: #### B ASSEMBLY RIVETER, CMP ####[facility] M[address]olhmnxw[address] [place], [place] [address]Dr. Emelina Navarro Creatinine [Mass/Vol] 1.75 mg/dL Critically high 0.70-1.30 [facility] Comment on above: Performed By: #### B ASSEMBLY RIVETER, CMP ####[facility] Gdufbfdaez[address] [place], [place] [address]Dr. Emelina Navarro EGFR-AF ZIMBABWEAN 47 mL/min/1.73m2 Critically low >=60 [facility] Comment on above: Performed By: #### B ASSEMBLY RIVETER, CMP ####[facility] Grfsbkrkyk[address] [place], [place] [address]Dr. Emelina Navarro EGFR-NON AF ZIMBABWEAN 39 mL/min/1.73m2 Critically low >=60 [facility] Comment on above: Performed By: #### B ASSEMBLY RIVETER, CMP ####[facility] Ktgfwpkpqn[address] [place], [place] [address]Dr. Emelina Navarro Globulin (S) [Mass/Vol] 4.1 g/dL Normal [facility] Comment on above: Performed By: #### B ASSEMBLY RIVETER, CMP ####[facility] Blqshgrtbu8928 [place] [address]Dr. Emelina Navarro Glucose [Mass/Vol] 120 mg/dL Critically high 74-106 [facility] Comment on above: Performed By: #### B ASSEMBLY RIVETER, CMP ####[facility] Lvfggtgmia7696 [place] [address]Dr. Emelina Navarro Potassium [Moles/Vol] 4.1 mmol/L Normal 3.5-5.1 [facility] Comment on above: Performed By: #### B ASSEMBLY RIVETER, CMP ####[facility] Ckiccbdhmd2[address] [place], [place] [address]Dr. Emelina Navarro Protein [Mass/Vol] 7.5 g/dL Normal 6.4-8.2 [facility] Comment on above: Performed By: #### B ASSEMBLY RIVETER, CMP ####[facility] Edrooxlqig83[address] [place], [place] [address]Dr. Emelina Navarro Sodium [Moles/Vol] 138 mmol/L Normal 136-145 [facility] Comment on above: Performed By: #### B ASSEMBLY RIVETER, CMP ####[facility] Kyecttmwfw432[address] [place], [place] [address]Dr. Emelina Ramon Urea nitrogen [Mass/Vol] 24.0 mg/dL Critically high 7.0-18.0 [facility] Comment on above: Performed By: #### B ASSEMBLY RIVETER, CMP ####[facility] [address]kmrujxek[address] [place], [place] [address]Dr. Emelina Navarro Urea nitrogen/Creatinine [Mass ratio] 13.7 mg/mg Normal [facility] Comment on above: Performed By: #### B ASSEMBLY RIVETER, CMP ####[facility] Qabggwiwia[address] [place], [place] [address]Dr. Emelina Navarro SPUTUM CULTUREon 05-11-2022 Epithelial cells LM Ql (Urine sed) Few Normal [facility] Comment on above: Performed By: #### C XSPTUM ####[facility] Hxlwjtnhvb[address] [place], [place] [address]Dr. Emelina Navarro Gram Stain Evaluation Comment Normal [facility] Comment on above: Result Comment: This specimen is of good quality and is acceptable for routinebacterial culture. Performed By: #### C XSPTUM ####[facility] Mimnxxqznz0770 [place] [address]Dr. Emelina Navarro Lower Respiratory Culture Final report Normal [facility] Comment on above: Performed By: #### C XSPTUM ####[facility] Uzvfxlrwqd0006 [place] [phone]. Emelina Navarro Result 1 Comment Normal [facility] Comment on above: Result Comment: Few gram positive cocci Performed By: #### C XSPTUM ####[facility] Acjnirfrvw[address] [place], [place] [address]Dr. Emelina Navarro Result Comment: Rout ine respiratory cedric Result 2 Normal [facility] Comment on above: Performed By: #### C XSPTUM ####[facility] Lrcdmdfphn[address] [place], [place] [address]Dr. Emelina Navarro Result 3 Normal [facility] Comment on above: Performed By: #### C XSPTUM ####[facility] Znxzkjacwa9[address] [place], [place] [address]Dr. Emelina Navarro Result 4 Normal [facility] Comment on above: Performed By: #### C XSPTUM ####[facility] Srbetkehpi[address] [place], [place] [address]Dr. Emelina Navarro White Blood Cells Few Normal [facility] Comment on above: Performed By: #### C XSPTUM ####[facility] Vtcyhcycej[address] [place], [place] [address]Dr. Emelina Navarro CBC W MANUAL DIFFon 05-10-20 22 ATYPICAL LYMPH # Normal [facility] Comment on above: Performed By: #### C BCMAN ####[facility] Gczhyeyobe[address] [place], [place] [address]Dr. Emelina Navarro ATYPICAL LYMPH % Normal [facility] Comment on above: Performed By: #### C BCMAN ####[facility] Wsovvjhjoc060[address] [place], [place] [address]Dr. Emelina Navarro BAND # 0.5 103/ul Critically high 0.0-0.3 [facility] Comment on above: Performed By: #### C PURVI ####[facility] Higdpkocls3272 [place] [phone]. Emelina Navarro BAND % 2 % Normal 0-5 [facility] Comment on above: Performed By: #### C BCMAN ####[facility] Htxsrzvsqj4578 [place] [phone]. Emelina Navarro BASOM # 0.00 103/ul Normal 0.00-0.10 [facility] Comment on above: Performed By: #### C BCMAN ####[facility] Xjzyatgaav4458 [place] [address]Dr. Emelina Navarro BASOM % 0.0 % Critically low 0.2-2.0 [facility] Comment on above: Performed By: #### C BCADRIAN ####[facility] Zrvxxgvsgv3840 [place] [address]Dr. Emelina Navarro BLAST # Normal [facility] Comment on above: Performed By: #### C BCADRIAN ####[facility] Fsffmagcrw5776 [place] [address]Dr. Yinitza Navarro BLAST % Normal [facility] Comment on above: Performed By: #### C BCADRIAN ####[facility] Xfpwtmyspx[address] [place], [place] [address]Dr. Emelina Navarro CORRECTED WBC Normal 4.0-11.0 [facility] Comment on above: Performed By: #### C BCADRIAN ####[facility] Qbrawoqcju[address] [place] [address]Dr. Emelina Navarro EOS # 0.24 103/ul Normal 0.00-0.70 [facility] Comment on above: Performed By: #### C BCADRIAN ####[facility] Ctemukfaqd4640 [place] [address]Dr. Emelina Navarro EOS% 1.0 % Normal 0.9-7.0 [facility] Comment on above: Performed By: #### C BCADRIAN ####[facility] Sthurjdkt[address] [place], [place] [address]Dr. Emelina Navarro HCT 41.6 % Critically low 42.0-54.0 [facility] Comment on above: Performed By: #### C PURVI ####[facility] Tlybxaxzcj8706 [place], [place] [address]Wz. Emelina Navarro HGB 13.2 g/dl Critically low 14.0-18.0 [facility] Comment on above: Performed By: #### C PURVI ####[facility] Acpuzdkbeq5439 [place], [place] [address]Eb. Emelina Navarro LYMPHM # 0.71 103/ul Critically low 1.20-3.80 [facility] Comment on above: Performed By: #### C PURVI ####[facility] Gzfmuelely9040 [place], [place] [address]Ee. Emelina Navarro LYMPHM% 3.0 % Critically low 20.5-60.0 [facility] Comment on above: Performed By: #### C PURVI ####[facility] Pxrugjvxoi6759 [place] [id number]. Emelina Navarro MCH 28.3 pg Normal 25.9-34.0 [facility] Comment on above: Performed By: #### C PURVI ####[facility] Rhsymdzmmq2900 [place] [id number]. Emelina Navarro MCHC 31.7 g/dl Normal 29.9-35.2 [facility] Comment on above: Performed By: #### C PURVI ####[facility] Pbdsuegfok8048 [place], [place] [address]Bl. Emelina Navarro MCV 89.3 fL Normal 80.0-94.0 [facility] Comment on above: Performed By: #### C PURVI ####[facility] Idiatuugxq7848 [place], [place] [address]Bq. Emelina Navarro METAMYELOCYTE # Normal [facility] Comment on above: Performed By: #### C PURVI ####[facility] Zxvcuxyipq1082 [place], [place] [address]As. Emelina Navarro METAMYELOCYTE % Normal [facility] Comment on above: Performed By: #### Poonam LOJA ####[facility] Zponwcodqh0897 [place] [id number]. Emelina Navarro MONOM# 0.24 103/ul Critically low 0.30-0.80 [facility] Comment on above: Performed By: #### C PURVI ####[facility] Cnjprialkl0708 [place] [address]Dr. Emelina Navarro MONOM% 1.0 % Critically low 1.7-12.0 [facility] Comment on above: Performed By: #### C PURVI ####[facility] Skjggejyxj8214 [place] [address]Dr. Emelina Navarro MPV 9.7 fL Normal 9.5-13.5 [facility] Comment on above: Performed By: #### C PURVI ####[facility] Snwpqrdxlj3499 [place] [address]Dr. Emelina Navarro MYELOCYTE # Normal [facility] Comment on above: Performed By: #### C PURVI ####[facility] Jqfxmfuwju3131 [place] [address]Dr. Emelina Navarro MYELOCYTE % Normal [facility] Comment on above: Performed By: #### C PURVI ####[facility] Pcqgxwoeth9119 [place] [address]Dr. Emelina Navarro NRBC Normal [facility] Comment on above: Performed By: #### C PURVI ####[facility] Eccfqabdvv5595 [place] [id number]. Emelina Navarro PLT 192 103/ul Normal 150-450 [facility] Comment on above: Performed By: #### C PURVI ####[facility] Zggsmgyaxf4004 [place] [address]Dr. Emelina Navarro RBC 4.66 106/ul Critically low 4.70-6.10 [facility] Comment on above: Performed By: #### C PURVI ####[facility] Inwdcjngfi1226 [place] [address]Dr. Emelina Navarro RDW 16.1 % Critically high 11.0-15.0 [facility] Comment on above: Performed By: #### C PURVI ####[facility] Vxbsguoqhf2162 [place] [id number]. Emelina Navarro SEG # 21.95 103/ul Critically high 1.40-6.50 [facility] Comment on above: Performed By: #### C PURVI ####[facility] Qnsdzhibiz6504 [place] [address]Dr. Emelina Navarro SEG % 93.0 % Critically high 43.0-75.0 [facility] Comment on above: Performed By: #### C BCMAN ####[facility] Gmrcxdztrr8278 [place] [address]Dr. Emelina Ramon WBC 23.6 103/ul Critically high 4.0-11.0 [facility] Comment on above: Performed By: #### C PURVI ####[facility] Edqbgohtcg9049 [place] [address]Dr. Emelina Ramon CRPon 05-10-2022 CRP 2.3 mg/dL Critically high <=1.0 [facility] Comment on above: Performed By: #### C MP, HSTROPN, CRP ####[facility] Edxquqgfhs2119 [place] [address]Dr. Awildanitaz Navarro DIGOXINon 05-10-2022 DIG 0.6 ng/mL Critically low 0.9-2.0 [facility] Comment on above: Performed By: #### D IG ####[facility] [address]wqhlzgdtq[address] [place], [place] [address]Dr. Emelina Navarro POINT OF CARE GLUCOSEon 04-20 Glucose [Mass/Vol] 246 mg/dL Critically high 74-106 [facility] Comment on above: Performed By: #### P OCGLUC ####[facility] Alckvorggx0864 [place] [address]Dr. Emelina Navarro PROF 14(COMP METB)on 022 Albumin [Mass/Vol] 3.0 g/dL Critically low 3.4-5.0 [facility] Comment on above: Performed By: #### C MP, HSTROPN, CRP ####[facility] Ofdfjzvnoe[address] [place], [place] [address]Dr. Emelina Navarro Albumin/Globulin [Mass ratio] 0.7 {ratio} Normal [facility] Comment on above: Performed By: #### C MP, HSTROPN, CRP ####[facility] Wiiqeqpkka6992 [place] [address]Dr. Emelina Navarro ALP [Catalytic activity/Vol] 95 U/L Normal 46-116 [facility] Comment on above: Performed By: #### C MP, HSTROPN, CRP ####[facility] Wwxubmrwhz7334 [place] [address]Dr. Emelina Navarro ALT [Catalytic activity/Vol] 75 U/L Critically high 16-63 [facility] Comment on above: Performed By: #### C MP, HSTROPN, CRP ####[facility] Kjlnuzbafv3786 [place] [address]Dr. Emelina Navarro Anion gap [Moles/Vol] 11.1 mmol/L Normal [facility] Comment on above: Performed By: #### C MP, HSTROPN, CRP ####[facility] Udukxlenlb[address] [place], [place] [address]Dr. Emelina Navarro AST [Catalytic activity/Vol] 25 U/L Normal 15-37 [facility] Comment on above: Performed By: #### C MP, HSTROPN, CRP ####[facility] Fekhxvqfhf8791 [place] [address]Dr. Awildanitza Navarro Bilirubin [Mass/Vol] 0.4 mg/dL Normal 0.2-1.0 [facility] Comment on above: Performed By: #### C MP, HSTROPN, CRP ####[facility] Xtgkvizvtr8399 [place] [address]Dr. Emelina Navarro Calcium [Mass/Vol] 8.3 mg/dL Critically low 8.5-10.1 [facility] Comment on above: Performed By: #### C MP, HSTROPN, CRP ####[facility] Hqrstsmfpl3499 [place] [address]Dr. Emelina Navarro Chloride [Moles/Vol] 100 mmol/L Normal 98-107 [facility] Comment on above: Performed By: #### C MP, HSTROPN, CRP ####[facility] Nnewkztmsi9723 [place] [address]Dr. Emelina Navarro CO2 [Moles/Vol] 28.6 mmol/L Normal 21.0-32.0 [facility] Comment on above: Performed By: #### C MP, HSTROPN, CRP ####[facility] Fjihxdvzew8605 [place] [address]Dr. Emelina Navarro Creatinine [Mass/Vol] 1.58 mg/dL Critically high 0.70-1.30 [facility] Comment on above: Performed By: #### C MP, HSTROPN, CRP ####[facility] [address]svyjhnwfa[address] [place], [place] [address]Dr. Emelina Navarro EGFR-AF ZIMBABWEAN 53 mL/min/1.73m2 Critically low >=60 [facility] Comment on above: Performed By: #### C MP, HSTROPN, CRP ####[facility] Dxxzmnzwfk[address] [place], [place] [address]Dr. Emelina Naavrro EGFR-NON AF ZIMBABWEAN 44 mL/min/1.73m2 Critically low >=60 [facility] Comment on above: Performed By: #### C MP, HSTROPN, CRP ####[facility] Huqtqmutxb[address] [place], [place] [address]Dr. Emelina Navarro Globulin (S) [Mass/Vol] 4.2 g/dL Normal [facility] Comment on above: Performed By: #### C MP, HSTROPN, CRP ####[facility] Fujfdcqzpn7919 [place] [address]Dr. Emelina Navarro Glucose [Mass/Vol] 230 mg/dL Critically high 74-106 [facility] Comment on above: Performed By: #### C MP, HSTROPN, CRP ####[facility] Mcpobrhgru6042 [place] [address]Dr. Emelina Navarro Potassium [Moles/Vol] 4.7 mmol/L Normal 3.5-5.1 [facility] Comment on above: Performed By: #### C MP, HSTROPN, CRP ####[facility] Laeafetnap5768 [place] [address]Dr. Emelina Navarro Protein [Mass/Vol] 7.2 g/dL Normal 6.4-8.2 [facility] Comment on above: Performed By: #### C MP, HSTROPN, CRP ####[facility] Kbjeeftsqu4520 [place] [address]Dr. Emelina Navarro Sodium [Moles/Vol] 135 mmol/L Critically low 136-145 [facility] Comment on above: Performed By: #### C MP, HSTROPN, CRP ####[facility] Fpujmzghlj2324 [place] [address]Dr. Emelina Navarro Urea nitrogen [Mass/Vol] 45.0 mg/dL Critically high 7.0-18.0 [facility] Comment on above: Performed By: #### C MP, HSTROPN, CRP ####[facility] [address]umvzrxuns[address] [place], [place] [address]Dr. Emelina Navarro Urea nitrogen/Creatinine [Mass ratio] 28.5 mg/mg Normal [facility] Comment on above: Performed By: #### C MP, HSTROPN, CRP ####[facility] Frwrprisfv6[address] [place], [place] [address]Dr. Emelina Navarro PROTIMEon 05-10-2022 INR Coag (PPP) [Relative time] 2.93 {INR} Normal [facility] Comment on above: Performed By: #### P T ####[facility] Kdxdkahvwu4225 [place] [address]Dr. Emelina Navarro INR GUIDELINES SEE BELOW Normal [facility] Comment on above: Result Comment: WENDY RED INR: 2.0 - 3.0 CONDITIONS NOT LISTED BELOW 2.5 - 3.5 FOR PROSTHETIC HEART VALVE REPLACEMENT 2.5 - 3.5 RECURRENT THROMBOSIS Performed By: #### P T ####[facility] R[address]kfvzbxyl[address] [place], [place] [address]Dr. Emelina Navarro PT Coag (PPP) [Time] 29.5 s Critically high 9.0-11.6 [facility] Comment on above: Performed By: #### P T ####[facility] Llnmeununq1624 [place] [address]Dr. Emelina Ramon TROPONIN, HIGH SENSITIVITYon 05-10-2022 HSTROP 38.3 pg/mL Normal 4.0-76.1 [facility] Comment on above: Result Comment: CUT- OFF POINTS HAVE BEEN ESTABLISHED BASED ON THE FOURTH UNIVERSAL DEFINITIONS OF MYOCARDIALINFARCTION. THE UPPER REFERENCE LIMIT (URL) OF TROPONIN, DEFINED THE 99TH PERCENTILE OFcTnI DISTRIBUTION IN A REFERENCE POPULATION, HAS BEEN CONFIRMED THE DECISION THRESHOLDFOR [place] DIAGNOSIS. Performed By: #### C MP, HSTROPN, CRP ####[facility] Lbztuoukcd[address] [place], [place] [address]Dr. Emelina Navarro CBC AUTO DIFFon 05-09-2022 BASO # 0.0 103/ul Normal 0.0-0.1 [facility] Comment on above: Performed By: #### C BC ####[facility] Yeeplpbccr[address] [place], [place] [address]Dr. Emelina Navarro Basophils/100 WBC (Bld) 0.1 % Critically low 0.2-2.0 [facility] Comment on above: Performed By: #### C BC ####[facility] Cftpkxkijd18[address] [place], [place] [address]DrWesley Navarro EO # 0.0 103/ul Normal 0.0-0.7 [facility] Comment on above: Performed By: #### C BC ####[facility] Aiwfrxfigg80[address] [place], [place] [address]Dr. Emelina Navarro Eosinophils/100 WBC (Bld) 0.0 % Critically low 0.9-7.0 [facility] Comment on above: Performed By: #### C BC ####[facility] Zvljbcbiwd89[address] [place], [place] [address]DrWesley Navarro Erythrocyte distribution width (RBC) [Ratio] 15.9 % Critically high 11.0-15.0 [facility] Comment on above: Performed By: #### C BC ####[facility] Pcnlqrxjbu[address] [place], [place] [address]DrWesley Navarro Hematocrit (Bld) [Volume fraction] 42.7 % Normal 42.0-54.0 [facility] Comment on above: Performed By: #### C BC ####[facility] Kvllynoziv4114 [place] [address]DrWesley Navarro Hemoglobin (Bld) [Mass/Vol] 13.5 g/dL Critically low 14.0-18.0 [facility] Comment on above: Performed By: #### C BC ####[facility] Btqfhfwahs[address] [place], [place] [address]DrWesley Navarro IG # 0.14 10e3/ul Critically high 0.00-0.03 [facility] Comment on above: Performed By: #### C BC ####[facility] Mlmofpgprs[address] [place], [place] [address]DrWesley Navarro IG % 0.8 % Critically high 0.0-0.5 [facility] Comment on above: Performed By: #### C BC ####[facility] Rfrthvqpvh6[address] [place], [place] [address]DrWesley Navarro LYMPH # 1.1 103/ul Critically low 1.2-3.8 [facility] Comment on above: Performed By: #### C BC ####[facility] Vfscbknycz[address] [place], [place] [address]DrWesley Navarro Lymphocytes/100 WBC (Bld) 6.2 % Critically low 20.5-60.0 [facility] Comment on above: Performed By: #### C BC ####[facility] Gvxavwbqtq18[address] [place], [place] [address]DrWesley Navarro MANUAL DIFF REQ NO Normal [facility] Comment on above: Performed By: #### C BC ####[facility] Eplkyvjglc86[address] [place], [place] [address]DrWesley Navarro MCH (RBC) [Entitic mass] 28.5 pg Normal 25.9-34.0 [facility] Comment on above: Performed By: #### C BC ####[facility] Cvbybhnpad8[address] [place], [place] [address]DrWesley Navarro MCHC (RBC) [Mass/Vol] 31.6 g/dL Normal 29.9-35.2 [facility] Comment on above: Performed By: #### C BC ####[facility] Hewweulndw6587 [place] [id number]. Emelina Navarro MCV (RBC) [Entitic vol] 90.3 fL Normal 80.0-94.0 [facility] Comment on above: Performed By: #### C BC ####[facility] Kydzplseoa[address] [place], [place] [address]DrWesley Navarro MONO # 0.4 103/ul Normal 0.3-0.8 [facility] Comment on above: Performed By: #### C BC ####[facility] Njjpyiiggs[address] [place], [place] [address]Dr. Emelina Navarro Monocytes/100 WBC (Bld) 2.1 % Normal 1.7-12.0 [facility] Comment on above: Performed By: #### C BC ####[facility] Rqwtgfsgax64[address] [place], [place] [address]Dr. Emelina Navarro NEUT # 16.2 103/ul Critically high 1.4-6.5 [facility] Comment on above: Performed By: #### C BC ####[facility] Jxjnqzbqse[address] [place], [place] [address]Dr. Awildanitza Navarro Neutrophils/100 WBC (Bld) 90.8 % Critically high 43.0-75.0 [facility] Comment on above: Performed By: #### C BC ####[facility] Xivinjekng69[address] [place], [place] [address]Dr. Emelina Navarro Platelet mean volume (Bld) [Entitic vol] 10.2 fL Normal 9.5-13.5 [facility] Comment on above: Performed By: #### C BC ####[facility] K[address]fhkqbvta[address] [place], [place] [address]Dr. Emelina Navarro PLT 215 103/ul Normal 150-450 [facility] Comment on above: Performed By: #### C BC ####[facility] Scvnzrfsfw[address] [place], [place] [address]Dr. Emelina Navarro RBC 4.73 106/ul Normal 4.70-6.10 [facility] Comment on above: Performed By: #### C BC ####[facility] Omqxtllyro9662 [place] [address]Dr. Emelina Navarro WBC 17.8 103/ul Critically high 4.0-11.0 [facility] Comment on above: Performed By: #### C BC ####[facility] Kwxfdfqwua2770 [place] [address]Dr. Emelina Navarro CRPon 05-09-2022 CRP 4.4 mg/dL Critically high <=1.0 [facility] Comment on above: Performed By: #### C MP, HSTROPN, CRP ####[facility] Lqclsngtez7627 [place] [address]Dr. Emelina Navarro DIGOXINon 05-09-2022 DIG 1.3 ng/mL Normal 0.9-2.0 [facility] Comment on above: Performed By: #### D IG ####[facility] Hrwqryjore4538 [place] [address]Dr. Emelina Navarro POINT OF CARE GLUCOSEon 04-20 Glucose [Mass/Vol] 319 mg/dL Critically high 74-106 [facility] Comment on above: Performed By: #### P OCGLUC ####[facility] Wxywviqtgr0400 [place] [address]Dr. Emelina Navarro Glucose [Mass/Vol] 259 mg/dL Critically high 74-106 [facility] Comment on above: Performed By: #### P OCGLUC ####[facility] Jgcxddpixj5036 [place] [address]Dr. Emelina Navarro Glucose [Mass/Vol] 564 mg/dL Critically high 74-106 [facility] Comment on above: Result Comment: NURS E NOTIFIED Performed By: #### P OCGLUC ####[facility] Lrgmqacxiu7105 [place] [address]Dr. Emelina Ramon PROF 14(COMP METB)on 022 Albumin [Mass/Vol] 3.1 g/dL Critically low 3.4-5.0 [facility] Comment on above: Performed By: #### C MP, HSTROPN, CRP ####[facility] Ophqhtovof2627 [place] [address]Dr. Emelina Navarro Albumin/Globulin [Mass ratio] 0.7 {ratio} Normal [facility] Comment on above: Performed By: #### C MP, HSTROPN, CRP ####[facility] Snblljknnf7553 [place] [address]Dr. Emelina Navarro ALP [Catalytic activity/Vol] 102 U/L Normal 46-116 [facility] Comment on above: Performed By: #### C MP, HSTROPN, CRP ####[facility] Gnawgbagpc5645 [place] [address]Dr. Emelina Navarro ALT [Catalytic activity/Vol] 81 U/L Critically high 16-63 [facility] Comment on above: Performed By: #### C MP, HSTROPN, CRP ####[facility] Eodbldxvra[address] [place], [place] [address]Dr. Emelina Navarro Anion gap [Moles/Vol] 12.3 mmol/L Normal [facility] Comment on above: Performed By: #### C MP, HSTROPN, CRP ####[facility] Ksvtzvqijt0811 [place] [address]Dr. Emelina Navarro AST [Catalytic activity/Vol] 22 U/L Normal 15-37 [facility] Comment on above: Performed By: #### C MP, HSTROPN, CRP ####[facility] Flvzwrbkuf3193 [place] [address]Dr. Emelina Navarro Bilirubin [Mass/Vol] 0.6 mg/dL Normal 0.2-1.0 [facility] Comment on above: Performed By: #### C MP, HSTROPN, CRP ####[facility] Tkvwjnedss1925 [place] [address]Dr. Emelina Navarro Calcium [Mass/Vol] 8.6 mg/dL Normal 8.5-10.1 [facility] Comment on above: Performed By: #### C MP, HSTROPN, CRP ####[facility] Gjkxotrpnx6029 [place] [address]Dr. Emelina Navarro Chloride [Moles/Vol] 100 mmol/L Normal 98-107 [facility] Comment on above: Performed By: #### C MP, HSTROPN, CRP ####[facility] Fwchegvxqj2826 [place] [address]Dr. Emelina Navarro CO2 [Moles/Vol] 28.4 mmol/L Normal 21.0-32.0 [facility] Comment on above: Performed By: #### C MP, HSTROPN, CRP ####[facility] Bdspcgzqis5803 [place] [address]Dr. Emelina Navarro Creatinine [Mass/Vol] 1.91 mg/dL Critically high 0.70-1.30 [facility] Comment on above: Performed By: #### C MP, HSTROPN, CRP ####[facility] Feahbkceps1084 [place] [address]Dr. Emelina Navarro EGFR-AF ZIMBABWEAN 43 mL/min/1.73m2 Critically low >=60 [facility] Comment on above: Performed By: #### C MP, HSTROPN, CRP ####[facility] D[address]fqmbzrr[address] [place], [place] [address]Dr. Emelina Navarro EGFR-NON AF ZIMBABWEAN 35 mL/min/1.73m2 Critically low >=60 [facility] Comment on above: Performed By: #### C MP, HSTROPN, CRP ####[facility] Bdpxfqhcyt9846 [place] [address]Dr. Emelina Navarro Globulin (S) [Mass/Vol] 4.6 g/dL Normal [facility] Comment on above: Performed By: #### C MP, HSTROPN, CRP ####[facility] Cdmxmufhvt0[address] [place], [place] [address]Dr. Emelina Navarro Glucose [Mass/Vol] 242 mg/dL Critically high 74-106 [facility] Comment on above: Performed By: #### C MP, HSTROPN, CRP ####[facility] Psnsatdhpr6466 [place] [address]Dr. Emelina Navarro Potassium [Moles/Vol] 4.7 mmol/L Normal 3.5-5.1 [facility] Comment on above: Performed By: #### C MP, HSTROPN, CRP ####[facility] Resphybbge[address] [place], [place] [address]Dr. Emelina Navarro Protein [Mass/Vol] 7.7 g/dL Normal 6.4-8.2 [facility] Comment on above: Performed By: #### C MP, HSTROPN, CRP ####[facility] Xzskhulzkx90[address] [place], [place] [address]Dr. Emelina Navarro Sodium [Moles/Vol] 136 mmol/L Normal 136-145 [facility] Comment on above: Performed By: #### C MP, HSTROPN, CRP ####[facility] Qfnycddmse[address] [place], [place] [address]Dr. Emelina Navarro Urea nitrogen [Mass/Vol] 48.0 mg/dL Critically high 7.0-18.0 [facility] Comment on above: Performed By: #### C MP, HSTROPN, CRP ####[facility] Tfrfpacdkh[address] [place], [place] [address]Dr. Emelina Navarro Urea nitrogen/Creatinine [Mass ratio] 25.1 mg/mg Normal [facility] Comment on above: Performed By: #### C MP, HSTROPN, CRP ####[facility] Vxfekvlndq[address] [place], [place] [address]Dr. Emelina Navarro PROTIMEon 05-09-2022 INR Coag (PPP) [Relative time] 2.59 {INR} Normal [facility] Comment on above: Performed By: #### P T ####[facility] [address]rxmvpmkbx[address] [place], [place] [address]Dr. Emelina Navarro INR GUIDELINES SEE BELOW Normal [facility] Comment on above: Result Comment: WENDY RED INR: 2.0 - 3.0 CONDITIONS NOT LISTED BELOW 2.5 - 3.5 FOR PROSTHETIC HEART VALVE REPLACEMENT 2.5 - 3.5 RECURRENT THROMBOSIS Performed By: #### P T ####[facility] Ycvbjdmxcb6055 [place] [address]Dr. Emelina Navarro PT Coag (PPP) [Time] 26.3 s Critically high 9.0-11.6 [facility] Comment on above: Performed By: #### P T ####[facility] Tnohkkzrqf3848 [place] [address]Dr. Emelina Navarro TROPONIN, HIGH SENSITIVITYon 05-09-2022 HSTROP 45.4 pg/mL Normal 4.0-76.1 [facility] Comment on above: Result Comment: CUT- OFF POINTS HAVE BEEN ESTABLISHED BASED ON THE FOURTH UNIVERSAL DEFINITIONS OF MYOCARDIALINFARCTION. THE UPPER REFERENCE LIMIT (URL) OF TROPONIN, DEFINED THE 99TH PERCENTILE OFcTnI DISTRIBUTION IN A REFERENCE POPULATION, HAS BEEN CONFIRMED THE DECISION THRESHOLDFOR [place] DIAGNOSIS. Performed By: #### C MP, HSTROPN, CRP ####[facility] Zwnzadhnfa6340 [place] [address]Dr. Emelina Navarro XR FOOT RT MIN 3 VIEWSon XR FOOT RT MIN 3 VIEWS Normal [facility] CARDIAC IMTIAZ 3-6on 2 CK [Catalytic activity/Vol] 34 U/L Critically low 39-308 [facility] Comment on above: Performed By: #### C MREP ####[facility] Hzjglvkhyy5686 [place] [address]Dr. Emelina Navarro CK.MB [Mass/Vol] 3.37 ng/mL Normal <=3.60 [facility] Comment on above: Performed By: #### C MREP ####[facility] Ydnhewyxav4835 [place] [address]Dr. Emelina Navarro HSTROP 53.5 pg/mL Normal 4.0-76.1 [facility] Comment on above: Result Comment: CUT- OFF POINTS HAVE BEEN ESTABLISHED BASED ON THE FOURTH UNIVERSAL DEFINITIONS OF MYOCARDIALINFARCTION. THE UPPER REFERENCE LIMIT (URL) OF TROPONIN, DEFINED THE 99TH PERCENTILE OFcTnI DISTRIBUTION IN A REFERENCE POPULATION, HAS BEEN CONFIRMED THE DECISION THRESHOLDFOR [place] DIAGNOSIS. Performed By: #### C MREP ####[facility] Qmguatuscl[address] [place] [id number]. Emelina Navarro CK [Catalytic activity/Vol] 39 U/L Normal 39-308 [facility] Comment on above: Performed By: #### C MREP ####[facility] Dnytayjrqj7508 [place] [id number]. Emelina Navarro CK.MB [Mass/Vol] 2.74 ng/mL Normal <=3.60 [facility] Comment on above: Performed By: #### C MREP ####[facility] Cvnluk[address]pla9[address] [place] [id number]. Emelina Navarro HSTROP 68.7 pg/mL Normal 4.0-76.1 [facility] Comment on above: Result Comment: CUT- OFF POINTS HAVE BEEN ESTABLISHED BASED ON THE FOURTH UNIVERSAL DEFINITIONS OF MYOCARDIALINFARCTION. THE UPPER REFERENCE LIMIT (URL) OF TROPONIN, DEFINED THE 99TH PERCENTILE OFcTnI DISTRIBUTION IN A REFERENCE POPULATION, HAS BEEN CONFIRMED THE DECISION THRESHOLDFOR [place] DIAGNOSIS. Performed By: #### C MREP ####[facility] [id number] [place] [id number]. Emelina Navarro CARDIAC IMTIAZ ADMITon 022 CK [Catalytic activity/Vol] 30 U/L Critically low 39-308 [facility] Comment on above: Performed By: #### SHIVAM Mcgee MP ####[facility] [id number] [place] [id number]. Emelina Navarro CK.MB [Mass/Vol] 2.88 ng/mL Normal <=3.60 [facility] Comment on above: Performed By: #### Everardo PRAJAPATI CMADM ####[facility] Jwutfieusq[address] [place] [id number]. Emelina Navarro HSTROP 69.9 pg/mL Normal 4.0-76.1 [facility] Comment on above: Result Comment: CUT- OFF POINTS HAVE BEEN ESTABLISHED BASED ON THE FOURTH UNIVERSAL DEFINITIONS OF MYOCARDIALINFARCTION. THE UPPER REFERENCE LIMIT (URL) OF TROPONIN, DEFINED THE 99TH PERCENTILE OFcTnI DISTRIBUTION IN A REFERENCE POPULATION, HAS BEEN CONFIRMED THE DECISION THRESHOLDFOR W[place] DIAGNOSIS. Performed By: #### Everardo PRAJAPATI, CMADM ####[facility] Ljngxuvtwa55[address] [place] [id number]. Emelina Navarro URBANO 79 ng/mL Normal 16-96 [facility] Comment on above: Performed By: #### B MP, CMADM ####[facility] Biaewxdzqj50[address] [place] [address]Dr. Emelina Navarro CBC AUTO DIFFon 05-08-2022 BASO # 0.0 103/ul Normal 0.0-0.1 [facility] Comment on above: Performed By: #### C BC ####[facility] Mnfdpfdwei9[address] [place], [place] [address]Dr. Emelina Navarro Basophils/100 WBC (Bld) 0.2 % Normal 0.2-2.0 [facility] Comment on above: Performed By: #### C BC ####[facility] Eabcnjykmn5[address] [place], [place] [address]Dr. Emelina Navarro EO # 0.2 103/ul Normal 0.0-0.7 [facility] Comment on above: Performed By: #### C BC ####[facility] Ydtylnahcc13[address] [place], [place] [address]Dr. Emelina Navarro Eosinophils/100 WBC (Bld) 1.3 % Normal 0.9-7.0 [facility] Comment on above: Performed By: #### C BC ####[facility] Lipujhqgta15[address] [place], [place] [address]Dr. Emelina Navarro Erythrocyte distribution width (RBC) [Ratio] 16.2 % Critically high 11.0-15.0 [facility] Comment on above: Performed By: #### C BC ####[facility] Ifmzyrpqtc5[address] [place], [place] [address]Dr. Emelina Navarro Hematocrit (Bld) [Volume fraction] 43.8 % Normal 42.0-54.0 [facility] Comment on above: Performed By: #### C BC ####[facility] Cdmqmvqmvm[address] [place], [place] [address]Dr. Emelina Navarro Hemoglobin (Bld) [Mass/Vol] 13.9 g/dL Critically low 14.0-18.0 [facility] Comment on above: Performed By: #### C BC ####[facility] Kmivyamxae84[address] [place] [id number]. Emelina Navarro IG # 0.17 10e3/ul Critically high 0.00-0.03 [facility] Comment on above: Performed By: #### C BC ####[facility] Lmnybriqjm9099 [place] [phone]. Emelina Navarro IG % 1.0 % Critically high 0.0-0.5 [facility] Comment on above: Performed By: #### C BC ####[facility] Fleayjmqwn3835 [place] [address]Dr. Emelina Navarro LYMPH # 1.1 103/ul Critically low 1.2-3.8 [facility] Comment on above: Performed By: #### C BC ####[facility] Zknfuivomp3557 [place] [address]Dr. Emelina Navarro Lymphocytes/100 WBC (Bld) 6.5 % Critically low 20.5-60.0 [facility] Comment on above: Performed By: #### C BC ####[facility] Ymdpnskwhh01[address] [place] [address]Dr. Emelina Navarro MANUAL DIFF REQ NO Normal [facility] Comment on above: Performed By: #### C BC ####[facility] Axsepcyxme6917 [place] [address]Dr. Emelina Ramon MCH (RBC) [Entitic mass] 28.8 pg Normal 25.9-34.0 [facility] Comment on above: Performed By: #### C BC ####[facility] Bmqnvuneac[address] [place], [place] [id number]. Emelina Ramon MCHC (RBC) [Mass/Vol] 31.7 g/dL Normal 29.9-35.2 [facility] Comment on above: Performed By: #### C BC ####[facility] Tlkwujizel13[address] [place] [address]Dr. Emelina Ramon MCV (RBC) [Entitic vol] 90.9 fL Normal 80.0-94.0 [facility] Comment on above: Performed By: #### C BC ####[facility] Bqafgclalh4787 [place] [phone]. Emelina Navarro MONO # 1.4 103/ul Critically high 0.3-0.8 [facility] Comment on above: Performed By: #### C BC ####[facility] Bcbdgffyex6271 [place] [phone]. Emelina Navarro Monocytes/100 WBC (Bld) 8.5 % Normal 1.7-12.0 [facility] Comment on above: Performed By: #### C BC ####[facility] Wxqablzuqn5502 [place] [phone]. Emelina Navarro NEUT # 13.9 103/ul Critically high 1.4-6.5 [facility] Comment on above: Performed By: #### C BC ####[facility] Wpddoziedk9336 [place] [address]Dr. Emelina Navarro Neutrophils/100 WBC (Bld) 82.5 % Critically high 43.0-75.0 [facility] Comment on above: Performed By: #### C BC ####[facility] Bwokkhpxos7667 [place] [phone]. Emelina Navarro Platelet mean volume (Bld) [Entitic vol] 9.8 fL Normal 9.5-13.5 [facility] Comment on above: Performed By: #### C BC ####[facility] Xunbjgxoys5000 [place] [phone]. Emelina Navarro PLT 214 103/ul Normal 150-450 [facility] Comment on above: Performed By: #### C BC ####[facility] Qmfkkybwzk[address] [place], [place] [address]Dr. Emelina Navarro RBC 4.82 106/ul Normal 4.70-6.10 [facility] Comment on above: Performed By: #### C BC ####[facility] Kclwjqhncy2337 [place] [phone]. Emelina Navarro WBC 16.8 103/ul Critically high 4.0-11.0 [facility] Comment on above: Performed By: #### C BC ####[facility] Qpgomdrtne8069 [place] [phone]. Emelina Navarro CRPon 05-08-2022 CRP 2.5 mg/dL Critically high <=1.0 [facility] Comment on above: Performed By: #### C RP ####[facility] Towbamqbkz69[address] [place] [phone]. Emelina Navarro Covid-19 PCR (CVDTBH)on 04-20 SARS-CoV-2 (COVID-19) RNA RADHA+probe Ql (Unsp spec) Detected Critically abnormal NOT DETECTED [facility] Comment on above: Result Comment: This test is not yet approved or cleared by the [place] FDA. When there are no FDA-approved or cleared tests available, and other criteria are met, FDA can make tests available under an emergency access mechanism called an Emergency Use Authorization (EUA). The EUA for this test is supported by the [place] of Health and Human Service's declaration that [...] be used). Performed By: #### C VDTBH ####[facility] Dhlzqzhyfu8[address] [place], [place] [id number]. Emelina Navarro DIGOXINon 05-08-2022 DIG 0.9 ng/mL Normal 0.9-2.0 [facility] Comment on above: Performed By: #### D IG ####[facility] Meivawdvoj852[address] [place], [place] [address]Dr. Emelina Navarro LACTATE/LACTIC ACIDon 2021 Lactate [Moles/Vol] 1.6 mmol/L Normal 0.4-1.9 [facility] Comment on above: Performed By: #### L ACT ####[facility] Icrujzbqqu939[address] [place], [place] [address]Dr. Emelina Navarro Lactate [Moles/Vol] 1.3 mmol/L Normal 0.4-1.9 [facility] Comment on above: Performed By: #### L ACT ####[facility] Gkowmdxfgj2219 [place] [address]Dr. Emelina Navarro POINT OF CARE GLUCOSEon 04-20-2021 Glucose [Mass/Vol] 244 mg/dL Critically high 74-106 [facility] Comment on above: Performed By: #### P OCGLUC ####[facility] Sjlkddmpme[address] [place], [place] [address]Dr. Emelina Navarro Glucose [Mass/Vol] 405 mg/dL Critically high 74-106 [facility] Comment on above: Performed By: #### P OCGLUC ####[facility] Xxykxwiytb4[address] [place], [place] [address]Dr. Emelina Navarro Glucose [Mass/Vol] 352 mg/dL Critically high 74-106 [facility] Comment on above: Performed By: #### P OCGLUC ####[facility] Cwzkhlyxmv14[address] [place], [place] [address]Dr. Emelina Navarro Glucose [Mass/Vol] 285 mg/dL Critically high 74-106 [facility] Comment on above: Performed By: #### P OCGLUC ####[facility] Whvzacgcgp15[address] [place], [place] [address]Dr. Emelina Navarro PROF CHEM 8 (BAS METB)on Anion gap [Moles/Vol] 13.7 mmol/L Normal [facility] Comment on above: Performed By: #### B MP ####[facility] Jzlvwkbusz4168[address] [place], [place] [address]Dr. Emelina Navarro Calcium [Mass/Vol] 8.4 mg/dL Critically low 8.5-10.1 [facility] Comment on above: Performed By: #### B MP ####[facility] Djakffjbyo6[address] [place], [place] [address]Dr. Emelina Navarro Chloride [Moles/Vol] 93 mmol/L Critically low 98-107 [facility] Comment on above: Performed By: #### B MP ####[facility] Rfcbjhcbnm8664[address] [place], [place] [address]DrWesley Navarro CO2 [Moles/Vol] 26.4 mmol/L Normal 21.0-32.0 [facility] Comment on above: Performed By: #### B MP ####[facility] Iroweuxajq4718 [place] [address]DrWesley Emelina Ramon Creatinine [Mass/Vol] 2.23 mg/dL Critically high 0.70-1.30 [facility] Comment on above: Performed By: #### B MP ####[facility] Nxziqqnpgq43[address] [place], [place] [address]Dr. Emelina Navarro EGFR-AF ZIMBABWEAN 36 mL/min/1.73m2 Critically low >=60 [facility] Comment on above: Performed By: #### B MP ####[facility] Wmkqruexmv[address] [place], [place] [address]Dr. Emelina Navarro EGFR-NON AF ZIMBABWEAN 30 mL/min/1.73m2 Critically low >=60 [facility] Comment on above: Performed By: #### B MP ####[facility] Gebhonowzv64[address] [place], [place] [address]Dr. Emelina Navarro Glucose [Mass/Vol] 451 mg/dL Critically high 74-106 [facility] Comment on above: Performed By: #### B MP ####[facility] Jseunnkoix39[address] [place], [place] [address]DrWesley Navarro Potassium [Moles/Vol] 5.1 mmol/L Normal 3.5-5.1 [facility] Comment on above: Performed By: #### B MP ####[facility] Tfbcvghhpw5204 [place] [address]DrWesley Navarro Sodium [Moles/Vol] 128 mmol/L Critically low 136-145 [facility] Comment on above: Performed By: #### B MP ####[facility] Jtprpmlura7[address] [place], [place] [address]DrWesley Navarro Urea nitrogen [Mass/Vol] 40.0 mg/dL Critically high 7.0-18.0 [facility] Comment on above: Performed By: #### B MP ####[facility] Arufktxnxe9[address] [place], [place] [address]Dr. Emelina Navarro Urea nitrogen/Creatinine [Mass ratio] 17.9 mg/mg Normal [facility] Comment on above: Performed By: #### B VICTORINA ####[facility] Mfiwdgcqfs8595 [place] [address]Dr. Emelina Navarro Anion gap [Moles/Vol] 13.7 mmol/L Normal [facility] Comment on above: Performed By: #### B SHIVAM PRAJAPATI ####[facility] Lixsahmxcn1280 [place] [address]Dr. Emelina Navarro Calcium [Mass/Vol] 8.5 mg/dL Normal 8.5-10.1 [facility] Comment on above: Performed By: #### B SHIVAM PRAJAPATI ####[facility] Exjmzuhatn66[address] [place], [place] [address]Dr. Emelina Navarro Chloride [Moles/Vol] 98 mmol/L Normal 98-107 [facility] Comment on above: Performed By: #### SHIVAM Mcgee MP ####[facility] Qqudowddsi[address] [place], [place] [address]Dr. Emelina Ramon CO2 [Moles/Vol] 25.0 mmol/L Normal 21.0-32.0 [facility] Comment on above: Performed By: #### SHIVAM Mcgee MP ####[facility] Ovlltjnwgj5[address] [place], [place] [address]Dr. Emelina Navarro Creatinine [Mass/Vol] 1.97 mg/dL Critically high 0.70-1.30 [facility] Comment on above: Performed By: #### SHIVAM Mcgee MP ####[facility] Jmfwjpylfi30[address] [place], [place] [address]Dr. Emelina Ramon EGFR-AF ZIMBABWEAN 41 mL/min/1.73m2 Critically low >=60 [facility] Comment on above: Performed By: #### SHIVAM Mcgee MP ####[facility] Kumuazboms7[address] [place], [place] [address]Dr. Emelina Ramon EGFR-NON AF ZIMBABWEAN 34 mL/min/1.73m2 Critically low >=60 [facility] Comment on above: Performed By: #### B SHIVAM PRAJAPATI ####[facility] Dyvmavjykk9843 [place] [address]Dr. Emelina Navarro Glucose [Mass/Vol] 239 mg/dL Critically high 74-106 [facility] Comment on above: Performed By: #### B VICTORINA, SHIVAM ####[facility] Rkgstztvug9633 [place] [address]Dr. Emelina Navarro Potassium [Moles/Vol] 5.7 mmol/L Critically high 3.5-5.1 [facility] Comment on above: Performed By: #### B VICTORINA, SHIVAM ####[facility] Lzgqjtcbhi4117 [place] [address]Dr. Emelina Navarro Sodium [Moles/Vol] 131 mmol/L Critically low 136-145 [facility] Comment on above: Performed By: #### B VICTORINA, SHIVAM ####[facility] Waxwnkmdwu6379 [place] [address]Dr. Emelina Navarro Urea nitrogen [Mass/Vol] 37.0 mg/dL Critically high 7.0-18.0 [facility] Comment on above: Performed By: #### B VICTORINA, SHIVAM ####[facility] Yoeahvwpmg2209 [place] [address]Dr. Emelina Navarro Urea nitrogen/Creatinine [Mass ratio] 18.8 mg/mg Normal [facility] Comment on above: Performed By: #### B VICTORINA, SHIVAM ####[facility] Immkqqeuxv[address] [place], [place] [address]Dr. Emelina Navarro PROTIMEon 05-08-2022 INR Coag (PPP) [Relative time] 2.28 {INR} Normal [facility] Comment on above: Performed By: #### P T ####[facility] Dkntplhoes[address] [place], [place] [address]Dr. Emelina Navarro INR GUIDELINES SEE BELOW Normal [facility] Comment on above: Result Comment: WENDY RED INR: 2.0 - 3.0 CONDITIONS NOT LISTED BELOW 2.5 - 3.5 FOR PROSTHETIC HEART VALVE REPLACEMENT 2.5 - 3.5 RECURRENT THROMBOSIS Performed By: #### P T ####[facility] Fgxqxfnpvr7798 [place] [address]Dr. Emelina Navarro PT Coag (PPP) [Time] 23.3 s Critically high 9.0-11.6 [facility] Comment on above: Performed By: #### P T ####[facility] Qsobeykfui368[address] [place], [place] [address]Dr. Emelina Navarro US FERNY DOP LEG LTon 05-08-20 US FERNY DOP LEG LT Normal [facility] XR CHEST 1 Von 05-08-2022 XR CHEST 1 V Normal [facility] CBC AUTO DIFFon 05-02-2022 BASO # 0.0 103/ul Normal 0.0-0.1 [facility] Comment on above: Performed By: #### C BC ####[facility] Dizpzcaihh750[address] [place], [place] [address]Dr. Emelina Navarro Basophils/100 WBC (Bld) 0.2 % Normal 0.2-2.0 [facility] Comment on above: Performed By: #### C BC ####[facility] Kcysysjkof6[address] [place], [place] [address]Dr. Emelina Navarro EO # 0.0 103/ul Normal 0.0-0.7 [facility] Comment on above: Performed By: #### C BC ####[facility] Zntzdmrgnu5[address] [place], [place] [address]Dr. Emelina Navarro Eosinophils/100 WBC (Bld) 0.2 % Critically low 0.9-7.0 [facility] Comment on above: Performed By: #### C BC ####[facility] Ywgczrzcmn[address] [place], [place] [address]Dr. Emelina Navarro Erythrocyte distribution width (RBC) [Ratio] 16.5 % Critically high 11.0-15.0 [facility] Comment on above: Performed By: #### C BC ####[facility] Hvdbfucjpe[address] [place], [place] [address]DrWesley Navarro Hematocrit (Bld) [Volume fraction] 42.0 % Normal 42.0-54.0 [facility] Comment on above: Performed By: #### C BC ####[facility] Uoqzmggxad3166 [place] [phone]. Emelina Navarro Hemoglobin (Bld) [Mass/Vol] 13.3 g/dL Critically low 14.0-18.0 [facility] Comment on above: Performed By: #### C BC ####[facility] Ecnikfdrls8010 [place] [address]Dr. Emelina Navarro IG # 0.14 10e3/ul Critically high 0.00-0.03 [facility] Comment on above: Performed By: #### C BC ####[facility] Zfgdttlaip6551 [place] [address]Dr. Emelina Navarro IG % 1.1 % Critically high 0.0-0.5 [facility] Comment on above: Performed By: #### C BC ####[facility] Vefxlomjoq7367 [place] [address]Dr. Emelina Navarro LYMPH # 1.3 103/ul Normal 1.2-3.8 [facility] Comment on above: Performed By: #### C BC ####[facility] Hlzfmutxxa9032 [place] [address]Dr. Emelina Navarro Lymphocytes/100 WBC (Bld) 9.8 % Critically low 20.5-60.0 [facility] Comment on above: Performed By: #### C BC ####[facility] Nyvgphhjbd5780 [place] [address]Dr. Emelina Navarro MANUAL DIFF REQ NO Normal [facility] Comment on above: Performed By: #### C BC ####[facility] Umzgbkadbm2842 [place] [phone]. Emelina Navarro MCH (RBC) [Entitic mass] 28.9 pg Normal 25.9-34.0 [facility] Comment on above: Performed By: #### C BC ####[facility] Bilxfaejmc2813 [place] [phone]. Emelina Navarro MCHC (RBC) [Mass/Vol] 31.7 g/dL Normal 29.9-35.2 [facility] Comment on above: Performed By: #### C BC ####[facility] Lumlfhqqis1609 [place] [phone]. Emelina Navarro MCV (RBC) [Entitic vol] 91.1 fL Normal 80.0-94.0 [facility] Comment on above: Performed By: #### C BC ####[facility] Dgcgghgnul6536 [place] [phone]. Emelina Navarro MONO # 1.2 103/ul Critically high 0.3-0.8 [facility] Comment on above: Performed By: #### C BC ####[facility] Qhygppcuyr5195 [place] [address]Dr. Emelina Navarro Monocytes/100 WBC (Bld) 9.6 % Normal 1.7-12.0 [facility] Comment on above: Performed By: #### C BC ####[facility] Ozwonyqnsl05[address] [place], [place] [address]Dr. Emelina Navarro NEUT # 10.1 103/ul Critically high 1.4-6.5 [facility] Comment on above: Performed By: #### C BC ####[facility] Qxglscwbqm3[address] [place], [place] [address]Dr. Emelina Navarro Neutrophils/100 WBC (Bld) 79.1 % Critically high 43.0-75.0 [facility] Comment on above: Performed By: #### C BC ####[facility] Owthsoyxdt225[address] [place], [place] [address]Dr. Emelina Navarro Platelet mean volume (Bld) [Entitic vol] 10.0 fL Normal 9.5-13.5 [facility] Comment on above: Performed By: #### C BC ####[facility] Vrlmwjhont6473 [place] [phone]. Emelina Navarro PLT 188 103/ul Normal 150-450 [facility] Comment on above: Performed By: #### C BC ####[facility] Ibolhxfqtu164[address] [place], [place] [address]Dr. Emelina Navarro RBC 4.61 106/ul Critically low 4.70-6.10 [facility] Comment on above: Performed By: #### C BC ####[facility] Bjwqhminil4154 [place] [address]Dr. Awildanitza Ramon WBC 12.8 103/ul Critically high 4.0-11.0 [facility] Comment on above: Performed By: #### C BC ####[facility] Hpyamcffzo5520 [place] [address]Dr. Emelina Navarro NM HEPATOBILIARY SCAN W EFon 05-02-2022 NM HEPATOBILIARY SCAN W EF Normal [facility] PROF 14(COMP METB)on 022 Albumin [Mass/Vol] 2.7 g/dL Critically low 3.4-5.0 [facility] Comment on above: Performed By: #### C MP ####[facility] Hjgnijffnr15[address] [place], [place] [address]Dr. Awildanitza Ramon Albumin/Globulin [Mass ratio] 0.7 {ratio} Normal [facility] Comment on above: Performed By: #### C MP ####[facility] Kczcqqcdpa[address] [place], [place] [address]Dr. Emelina Navarro ALP [Catalytic activity/Vol] 65 U/L Normal 46-116 [facility] Comment on above: Performed By: #### C MP ####[facility] Pxyhagemub2261 [place] [address]Dr. Awildanitza Ramon ALT [Catalytic activity/Vol] 406 U/L Critically high 16-63 [facility] Comment on above: Performed By: #### C MP ####[facility] Tfzytiydqz9794 [place] [address]Dr. Emelina Navarro Anion gap [Moles/Vol] 8.1 mmol/L Normal [facility] Comment on above: Performed By: #### C MP ####[facility] Hewtnypakd4886 [place] [address]Dr. Emelina Navarro AST [Catalytic activity/Vol] 101 U/L Critically high 15-37 [facility] Comment on above: Performed By: #### C MP ####[facility] Zgytdlxbig0068 [place] [address]Dr. Emelina Navarro Bilirubin [Mass/Vol] 0.6 mg/dL Normal 0.2-1.0 [facility] Comment on above: Performed By: #### C MP ####[facility] Tyjoinkvhk7029 [place] [phone]. Emelina Navarro Calcium [Mass/Vol] 7.7 mg/dL Critically low 8.5-10.1 [facility] Comment on above: Performed By: #### C MP ####[facility] Qgspldpbzk0567 [place] [phone]. Emelina Navarro Chloride [Moles/Vol] 104 mmol/L Normal 98-107 [facility] Comment on above: Performed By: #### C MP ####[facility] Siblninztd7552 [place] [address]Dr. Emelina Navarro CO2 [Moles/Vol] 30.9 mmol/L Normal 21.0-32.0 [facility] Comment on above: Performed By: #### C MP ####[facility] [address]pxpdpwndl[address] [place], [place] [address]Dr. Emelina Ramon Creatinine [Mass/Vol] 1.54 mg/dL Critically high 0.70-1.30 [facility] Comment on above: Performed By: #### C MP ####[facility] Fcaixfomfn01[address] [place], [place] [address]Dr. Emelina Ramon EGFR-AF ZIMBABWEAN 55 mL/min/1.73m2 Critically low >=60 [facility] Comment on above: Performed By: #### C MP ####[facility] Pccxkiokdn[address] [place], [place] [address]Dr. Emelina Ramon EGFR-NON AF ZIMBABWEAN 45 mL/min/1.73m2 Critically low >=60 [facility] Comment on above: Performed By: #### C MP ####[facility] Voszavwghn3511 [place] [phone]. Emelina Ramon Globulin (S) [Mass/Vol] 3.8 g/dL Normal [facility] Comment on above: Performed By: #### C MP ####[facility] Ulaquaodou0099 [place] [address]Dr. Emelina Navarro Glucose [Mass/Vol] 177 mg/dL Critically high 74-106 [facility] Comment on above: Performed By: #### C MP ####[facility] Fdxnfvezpa6565 [place] [phone]. Awildanitza Ramon Potassium [Moles/Vol] 4.0 mmol/L Normal 3.5-5.1 [facility] Comment on above: Performed By: #### C MP ####[facility] Gzzadjjvcp3642 [place] [phone]. Emelina Navarro Protein [Mass/Vol] 6.5 g/dL Normal 6.4-8.2 [facility] Comment on above: Performed By: #### C MP ####[facility] Yiyonmaipm9266 [place] [address]Dr. Emelina Navarro Sodium [Moles/Vol] 139 mmol/L Normal 136-145 [facility] Comment on above: Performed By: #### C MP ####[facility] Jrtpenlukc6665 [place] [address]Dr. Emelina Navarro Urea nitrogen [Mass/Vol] 38.0 mg/dL Critically high 7.0-18.0 [facility] Comment on above: Performed By: #### C MP ####[facility] Sdfmvzmter[address] [place], [place] [address]Dr. Emelina Ramon Urea nitrogen/Creatinine [Mass ratio] 24.7 mg/mg Normal [facility] Comment on above: Performed By: #### C MP ####[facility] Jthzabiwhm5645 [place] [address]Dr. Emelina Navarro PROTIMEon 05-02-2022 INR Coag (PPP) [Relative time] 2.57 {INR} Normal [facility] Comment on above: Performed By: #### P T ####[facility] Eflqsrycga3583 [place] [address]Dr. Emelina Navarro INR GUIDELINES SEE BELOW Normal [facility] Comment on above: Result Comment: WENDY RED INR: 2.0 - 3.0 CONDITIONS NOT LISTED BELOW 2.5 - 3.5 FOR PROSTHETIC HEART VALVE REPLACEMENT 2.5 - 3.5 RECURRENT THROMBOSIS Performed By: #### P T ####[facility] Bvfngudnss[address] [place], [place] [address]Dr. Emelina Navarro PT Coag (PPP) [Time] 26.1 s Critically high 9.0-11.6 [facility] Comment on above: Performed By: #### P T ####[facility] Ivvqkyyzxy4[address] [place], [place] [address]Dr. Emelina Navarro CBC AUTO DIFFon 05-01-2022 BASO # 0.0 103/ul Normal 0.0-0.1 [facility] Comment on above: Performed By: #### C BC ####[facility] Xaqyttpapk4[address] [place], [place] [address]Dr. Emelina Navarro Basophils/100 WBC (Bld) 0.1 % Critically low 0.2-2.0 [facility] Comment on above: Performed By: #### C BC ####[facility] Xmlkzpskci8[address] [place], [place] [address]Dr. Emelina Navarro EO # 0.0 103/ul Normal 0.0-0.7 [facility] Comment on above: Performed By: #### C BC ####[facility] Yrmijiuqqm[address] [place], [place] [address]Dr. Emelina Navarro Eosinophils/100 WBC (Bld) 0.0 % Critically low 0.9-7.0 [facility] Comment on above: Performed By: #### C BC ####[facility] Eeqlgowbhj[address] [place], [place] [address]Dr. Emelina Navarro Erythrocyte distribution width (RBC) [Ratio] 16.5 % Critically high 11.0-15.0 [facility] Comment on above: Performed By: #### C BC ####[facility] Rqbaykaqzr[address] [place], [place] [address]Dr. Emelina Navarro Hematocrit (Bld) [Volume fraction] 41.5 % Critically low 42.0-54.0 [facility] Comment on above: Performed By: #### C BC ####[facility] [address] [place], [place] [address]Dr. Emelina Navarro Hemoglobin (Bld) [Mass/Vol] 13.5 g/dL Critically low 14.0-18.0 [facility] Comment on above: Performed By: #### C BC ####[facility] Zomycazkja5376 [place] [phone]. Emelina Navarro IG # 0.12 10e3/ul Critically high 0.00-0.03 [facility] Comment on above: Performed By: #### C BC ####[facility] Bbwnzguoid3440 [place] [phone]. Emelina Navarro IG % 0.7 % Critically high 0.0-0.5 [facility] Comment on above: Performed By: #### C BC ####[facility] Llhufvummz9823 [place] [address]Dr. Emelina Navarro LYMPH # 0.8 103/ul Critically low 1.2-3.8 [facility] Comment on above: Performed By: #### C BC ####[facility] Razlafewqg1601 [place] [address]Dr. Emelina Navarro Lymphocytes/100 WBC (Bld) 4.7 % Critically low 20.5-60.0 [facility] Comment on above: Performed By: #### C BC ####[facility] Tcmfrzrfad7691 [place] [address]DrWesley Navarro MANUAL DIFF REQ NO Normal [facility] Comment on above: Performed By: #### C BC ####[facility] Eylylhedpc4352 [place] [phone]. Emelina Navarro MCH (RBC) [Entitic mass] 28.9 pg Normal 25.9-34.0 [facility] Comment on above: Performed By: #### C BC ####[facility] Cfaszmkikr6055 [place] [phone]. Awildanitza Navarro MCHC (RBC) [Mass/Vol] 32.5 g/dL Normal 29.9-35.2 [facility] Comment on above: Performed By: #### C BC ####[facility] Iqgdvklzso4486 [place] [phone]. Emelina Navarro MCV (RBC) [Entitic vol] 88.9 fL Normal 80.0-94.0 [facility] Comment on above: Performed By: #### C BC ####[facility] Wjyzktggqh3330 [place] [phone]. Emelina Navarro MONO # 1.0 103/ul Critically high 0.3-0.8 [facility] Comment on above: Performed By: #### C BC ####[facility] Khbyguvtid3053 [place] [phone]. Emelina Navarro Monocytes/100 WBC (Bld) 6.5 % Normal 1.7-12.0 [facility] Comment on above: Performed By: #### C BC ####[facility] Lcnjgcdwxn8639 [place] [phone]. Emelina Navarro NEUT # 14.1 103/ul Critically high 1.4-6.5 [facility] Comment on above: Performed By: #### C BC ####[facility] Agnangbabt8977 [place] [address]Dr. Emelina Navarro Neutrophils/100 WBC (Bld) 88.0 % Critically high 43.0-75.0 [facility] Comment on above: Performed By: #### C BC ####[facility] Vcubzdlvxi9956 [place] [phone]. Emelina Navarro Platelet mean volume (Bld) [Entitic vol] 9.9 fL Normal 9.5-13.5 [facility] Comment on above: Performed By: #### C BC ####[facility] Dbdkqrcvmk4868 [place] [phone]. Emelina Navarro PLT 185 103/ul Normal 150-450 [facility] Comment on above: Performed By: #### C BC ####[facility] Dbrcpkccpo9964 [place] [phone]. Emelina Navarro RBC 4.67 106/ul Critically low 4.70-6.10 [facility] Comment on above: Performed By: #### C BC ####[facility] Bsqywzhlhl1363 [place] [phone]. Emelina Navarro WBC 16.1 103/ul Critically high 4.0-11.0 [facility] Comment on above: Performed By: #### C BC ####[facility] Qtedfdqgot1488 [place] [address]Dr. Awildanitza Ramon LIVER PROFILEon 05-01-2022 Albumin/Globulin [Mass ratio] 0.7 {ratio} Normal [facility] Comment on above: Performed By: #### L IVER ####[facility] Yplbwxsaxz0026 [place] [address]Dr. Emelina Navarro ALP [Catalytic activity/Vol] 71 U/L Normal 46-116 [facility] Comment on above: Performed By: #### L IVER ####[facility] Llpssodgwy0647 [place] [address]Dr. Emelina Navarro ALT [Catalytic activity/Vol] 558 U/L Critically high 16-63 [facility] Comment on above: Performed By: #### L IVER ####[facility] Krlyvpvsga[address] [place], [place] [address]Dr. Emelina Navarro AST [Catalytic activity/Vol] 220 U/L Critically high 15-37 [facility] Comment on above: Performed By: #### L IVER ####[facility] Gzuzudkwea5408 [place] [address]Dr. Emelina Navarro BILI, CONJUGATED 0.2 mg/dL Normal 0.0-0.2 [facility] Comment on above: Performed By: #### L IVER ####[facility] Kkiholycya5[address] [place], [place] [address]Dr. Emelina Navarro Bilirubin [Mass/Vol] 0.5 mg/dL Normal 0.2-1.0 [facility] Comment on above: Performed By: #### L IVER ####[facility] Cxrlfxqwzn4042 [place] [address]Dr. Emelina Navarro Globulin (S) [Mass/Vol] 3.9 g/dL Normal [facility] Comment on above: Performed By: #### L IVER ####[facility] Bafotgaxgz6340 [place] [phone]. Emelina Navarro Protein [Mass/Vol] 6.8 g/dL Normal 6.4-8.2 [facility] Comment on above: Performed By: #### L IVER ####[facility] Ueekkyfktl8449 [place] [address]Dr. Emelina Navarro POINT OF CARE GLUCOSEon 04-19 Glucose [Mass/Vol] 205 mg/dL Critically high 74-106 [facility] Comment on above: Performed By: #### P OCGLUC ####[facility] Kzuyivgnlr2748 [place] [address]Dr. Emelina Navarro PROF 14(COMP METB)on 022 Albumin [Mass/Vol] 2.9 g/dL Critically low 3.4-5.0 [facility] Comment on above: Performed By: #### C MP ####[facility] Qohwgaeiot[address] [place], [place] [address]Dr. Emelina Navarro Performed By: #### L IVER ####[facility] Xthjwroypt94[address] [place], [place] [address]Dr. Emelina Navarro Albumin/Globulin [Mass ratio] 0.8 {ratio} Normal [facility] Comment on above: Performed By: #### C MP ####[facility] Rekyjicpja76[address] [place], [place] [address]Dr. Emelina Navarro ALP [Catalytic activity/Vol] 70 U/L Normal 46-116 [facility] Comment on above: Performed By: #### C MP ####[facility] Ymnrubzcld3661 [place] [address]Dr. Emelina Navarro ALT [Catalytic activity/Vol] 552 U/L Critically high 16-63 [facility] Comment on above: Performed By: #### C MP ####[facility] Pxedrkzyud5210 [place] [address]Dr. Emelina Navarro Anion gap [Moles/Vol] 14.2 mmol/L Normal [facility] Comment on above: Performed By: #### C MP ####[facility] Mhmldznxcu9965 [place] [address]Dr. Emelina Navarro AST [Catalytic activity/Vol] 214 U/L Critically high 15-37 [facility] Comment on above: Performed By: #### C MP ####[facility] Vpxbqqhwea0705 [place] [phone]. Emelina Navarro Bilirubin [Mass/Vol] 0.6 mg/dL Normal 0.2-1.0 [facility] Comment on above: Performed By: #### C MP ####[facility] Pmvivwkcyf3351 [place] [phone]. Emelina Navarro Calcium [Mass/Vol] 7.9 mg/dL Critically low 8.5-10.1 [facility] Comment on above: Performed By: #### C MP ####[facility] Rwwmxdvcjr8241 [place] [phone]. Emelina Navarro Chloride [Moles/Vol] 103 mmol/L Normal 98-107 [facility] Comment on above: Performed By: #### C MP ####[facility] Wutmscmvqa[address] [place], [place] [address]Dr. Emelina Navarro CO2 [Moles/Vol] 25.0 mmol/L Normal 21.0-32.0 [facility] Comment on above: Performed By: #### C MP ####[facility] Uersymxjft212[address] [place], [place] [address]Dr. Emelina Navarro Creatinine [Mass/Vol] 1.58 mg/dL Critically high 0.70-1.30 [facility] Comment on above: Performed By: #### C MP ####[facility] Tskrnttviz[address] [place], [place] [address]Dr. Emelina Navarro EGFR-AF ZIMBABWEAN 53 mL/min/1.73m2 Critically low >=60 [facility] Comment on above: Performed By: #### C MP ####[facility] Fhjsbusauh[address] [place], [place] [address]Dr. Emelina Navarro EGFR-NON AF ZIMBABWEAN 44 mL/min/1.73m2 Critically low >=60 [facility] Comment on above: Performed By: #### C MP ####[facility] Uhepfkaecx[address] [place], [place] [address]Dr. Emelina Navarro Globulin (S) [Mass/Vol] 3.8 g/dL Normal [facility] Comment on above: Performed By: #### C MP ####[facility] Vbbbvvqwrd9932 [place] [address]Dr. Emelina Navarro Glucose [Mass/Vol] 267 mg/dL Critically high 74-106 [facility] Comment on above: Performed By: #### C MP ####[facility] Chyuaruehi3451 [place] [address]Dr. Emelina Navarro Potassium [Moles/Vol] 3.2 mmol/L Critically low 3.5-5.1 [facility] Comment on above: Performed By: #### C MP ####[facility] Vcenqquaau4103 [place] [address]Dr. Emelina Navarro Protein [Mass/Vol] 6.7 g/dL Normal 6.4-8.2 [facility] Comment on above: Performed By: #### C MP ####[facility] Wvusgqfppn[address] [place], [place] [address]Dr. Emelina Navarro Sodium [Moles/Vol] 139 mmol/L Normal 136-145 [facility] Comment on above: Performed By: #### C MP ####[facility] Pkgkcriqnw[address] [place], [place] [address]Dr. Emelina Navarro Urea nitrogen [Mass/Vol] 43.0 mg/dL Critically high 7.0-18.0 [facility] Comment on above: Performed By: #### C MP ####[facility] Nqjmkjotvu4[address] [place], [place] [address]Dr. Emelina Navarro Urea nitrogen/Creatinine [Mass ratio] 27.2 mg/mg Normal [facility] Comment on above: Performed By: #### C MP ####[facility] Qdwludjdzx24[address] [place], [place] [address]Dr. Emelina Navarro PROTIMEon 05-01-2022 INR Coag (PPP) [Relative time] 2.57 {INR} Normal [facility] Comment on above: Performed By: #### P T ####[facility] Xuisavkags3312 [place] [address]Dr. Emelina Navarro INR GUIDELINES SEE BELOW Normal [facility] Comment on above: Result Comment: WENDY RED INR: 2.0 - 3.0 CONDITIONS NOT LISTED BELOW 2.5 - 3.5 FOR PROSTHETIC HEART VALVE REPLACEMENT 2.5 - 3.5 RECURRENT THROMBOSIS Performed By: #### P T ####[facility] Ehuscdznah8322 [place] [address]Dr. Emelina Navarro PT Coag (PPP) [Time] 26.1 s Critically high 9.0-11.6 [facility] Comment on above: Performed By: #### P T ####[facility] Inrjhdtfvj7[address] [place], [place] [address]Dr. Emelina Navarro CBC AUTO DIFFon 04-30-2022 BASO # 0.0 103/ul Normal 0.0-0.1 [facility] Comment on above: Performed By: #### C BC ####[facility] Wgaclhiqnl8[address] [place], [place] [address]Dr. Emelina Navarro Basophils/100 WBC (Bld) 0.1 % Critically low 0.2-2.0 [facility] Comment on above: Performed By: #### C BC ####[facility] Pljrrasdno[address] [place], [place] [address]Dr. Emelina Navarro EO # 0.0 103/ul Normal 0.0-0.7 [facility] Comment on above: Performed By: #### C BC ####[facility] Scaccujtuo75[address] [place], [place] [address]Dr. Emelina Navarro Eosinophils/100 WBC (Bld) 0.0 % Critically low 0.9-7.0 [facility] Comment on above: Performed By: #### C BC ####[facility] Fglnmogrsx4[address] [place], [place] [address]Dr. Emelina Navarro Erythrocyte distribution width (RBC) [Ratio] 16.4 % Critically high 11.0-15.0 [facility] Comment on above: Performed By: #### C BC ####[facility] Kgrbmurkuj[address] [place], [place] [address]Dr. Emelina Navarro Hematocrit (Bld) [Volume fraction] 40.9 % Critically low 42.0-54.0 [facility] Comment on above: Performed By: #### C BC ####[facility] Tnoeamgmxh4597 [place] [phone]. Emelina Navarro Hemoglobin (Bld) [Mass/Vol] 13.3 g/dL Critically low 14.0-18.0 [facility] Comment on above: Performed By: #### C BC ####[facility] Lyufckgdhz9915 [place] [phone]. Emelina Navarro IG # 0.11 10e3/ul Critically high 0.00-0.03 [facility] Comment on above: Performed By: #### C BC ####[facility] Lggppplskn5098 [place] [address]Dr. Emelina Navarro IG % 0.5 % Normal 0.0-0.5 [facility] Comment on above: Performed By: #### C BC ####[facility] Iblzoxdczp9444 [place] [address]Dr. Emelina Navarro LYMPH # 0.8 103/ul Critically low 1.2-3.8 [facility] Comment on above: Performed By: #### C BC ####[facility] Mnbzuikrzz5010 [place] [address]Dr. Emelina Navarro Lymphocytes/100 WBC (Bld) 3.9 % Critically low 20.5-60.0 [facility] Comment on above: Performed By: #### C BC ####[facility] Avljkoqsdk7775 [place] [address]Dr. Emelina Navarro MANUAL DIFF REQ NO Normal [facility] Comment on above: Performed By: #### C BC ####[facility] Urzcdcdqay[address] [place], [place] [address]Dr. Emelina Navarro MCH (RBC) [Entitic mass] 29.0 pg Normal 25.9-34.0 [facility] Comment on above: Performed By: #### C BC ####[facility] Ggmnkupisu[address] [place], [place] [address]Dr. Emelina Navarro MCHC (RBC) [Mass/Vol] 32.5 g/dL Normal 29.9-35.2 [facility] Comment on above: Performed By: #### C BC ####[facility] Tytmhhibaa7003 [place] [phone]. Emelina Navarro MCV (RBC) [Entitic vol] 89.1 fL Normal 80.0-94.0 [facility] Comment on above: Performed By: #### C BC ####[facility] Fdaqhfukun3772 [place] [phone]. Emelina Navarro MONO # 0.9 103/ul Critically high 0.3-0.8 [facility] Comment on above: Performed By: #### C BC ####[facility] Vstmvfdiec6723 [place] [phone]. Emelina Navarro Monocytes/100 WBC (Bld) 4.2 % Normal 1.7-12.0 [facility] Comment on above: Performed By: #### C BC ####[facility] Ozcjqtncux7736 [place] [phone]. Emelina Navarro NEUT # 18.5 103/ul Critically high 1.4-6.5 [facility] Comment on above: Performed By: #### C BC ####[facility] Xydekmimpf5153 [place] [phone]. Emelina Navarro Neutrophils/100 WBC (Bld) 91.3 % Critically high 43.0-75.0 [facility] Comment on above: Performed By: #### C BC ####[facility] Jkupbdeypy7467 [place] [phone]. Emelina Navarro Platelet mean volume (Bld) [Entitic vol] 10.9 fL Normal 9.5-13.5 [facility] Comment on above: Performed By: #### C BC ####[facility] Onxdsvuieh9609 [place] [phone]. Emelina Navarro PLT 162 103/ul Normal 150-450 [facility] Comment on above: Performed By: #### C BC ####[facility] Zkzqvnmsjj8518 [place] [phone]. Emelina Navarro RBC 4.59 106/ul Critically low 4.70-6.10 [facility] Comment on above: Performed By: #### C BC ####[facility] Osksjdcxjf3618 [place] [phone]. Emelina Navarro WBC 20.3 103/ul Critically high 4.0-11.0 [facility] Comment on above: Performed By: #### C BC ####[facility] Wbsjfilyou3301 [place] [address]Dr. Emelina Navarro PROF 14(COMP METB)on 022 Albumin [Mass/Vol] 2.8 g/dL Critically low 3.4-5.0 [facility] Comment on above: Performed By: #### C MP ####[facility] Tjjxxuytww7248 [place] [address]Dr. Emelina Navarro Albumin/Globulin [Mass ratio] 0.7 {ratio} Normal [facility] Comment on above: Performed By: #### C MP ####[facility] Sasotevubh1835 [place] [address]Dr. Emelina Navarro ALP [Catalytic activity/Vol] 65 U/L Normal 46-116 [facility] Comment on above: Performed By: #### C MP ####[facility] Atfqjeemze4657 [place] [address]Dr. Emelina Navarro ALT [Catalytic activity/Vol] 467 U/L Critically high 16-63 [facility] Comment on above: Performed By: #### C MP ####[facility] Ihvtplloau6781 [place] [address]Dr. Emelina Navarro Anion gap [Moles/Vol] 15.3 mmol/L Normal [facility] Comment on above: Performed By: #### C MP ####[facility] Rwoebjsutw9339 [place] [address]Dr. Emelina Navarro AST [Catalytic activity/Vol] 239 U/L Critically high 15-37 [facility] Comment on above: Performed By: #### C MP ####[facility] Uhqhuzendg4933 [place] [address]Dr. Emelina Navarro Bilirubin [Mass/Vol] 0.7 mg/dL Normal 0.2-1.0 [facility] Comment on above: Performed By: #### C MP ####[facility] Yipawxotxc3677 [place] [phone]. Emelina Navarro Calcium [Mass/Vol] 7.9 mg/dL Critically low 8.5-10.1 [facility] Comment on above: Performed By: #### C MP ####[facility] Xyxygzaagc6787 [place] [phone]. Emelina Navarro Chloride [Moles/Vol] 106 mmol/L Normal 98-107 [facility] Comment on above: Performed By: #### C MP ####[facility] Otkcsbzujv0402 [place] [phone]. Emelina Navarro CO2 [Moles/Vol] 23.3 mmol/L Normal 21.0-32.0 [facility] Comment on above: Performed By: #### C MP ####[facility] Amtxmdhifa99[address] [place], [place] [address]Dr. Emelina Navarro Creatinine [Mass/Vol] 1.71 mg/dL Critically high 0.70-1.30 [facility] Comment on above: Performed By: #### C MP ####[facility] Kgbwpzfrld8537 [place] [phone]. Emelina Navarro EGFR-AF ZIMBABWEAN 49 mL/min/1.73m2 Critically low >=60 [facility] Comment on above: Performed By: #### C MP ####[facility] Zzruzvqhso[address] [place], [place] [address]Dr. Emelina Navarro EGFR-NON AF ZIMBABWEAN 40 mL/min/1.73m2 Critically low >=60 [facility] Comment on above: Performed By: #### C MP ####[facility] Fwqxvurtkh6239 [place] [phone]. Emelina Navarro Globulin (S) [Mass/Vol] 3.9 g/dL Normal [facility] Comment on above: Performed By: #### C MP ####[facility] Tumjuwtieg6685 [place] [phone]. Emelina Navarro Glucose [Mass/Vol] 233 mg/dL Critically high 74-106 [facility] Comment on above: Performed By: #### C MP ####[facility] Ujgjvvlxmn1819 [place] [address]Dr. Emelina Navarro Potassium [Moles/Vol] 3.6 mmol/L Normal 3.5-5.1 [facility] Comment on above: Performed By: #### C MP ####[facility] Muaqbujjdp0455 [place] [address]Dr. Emelina Navarro Protein [Mass/Vol] 6.7 g/dL Normal 6.4-8.2 [facility] Comment on above: Performed By: #### C MP ####[facility] Arhudjkdxt[address] [place], [place] [address]Dr. Emelina Navarro Sodium [Moles/Vol] 141 mmol/L Normal 136-145 [facility] Comment on above: Performed By: #### C MP ####[facility] Grtyuktdcc165[address] [place], [place] [address]Dr. Emelina Navarro Urea nitrogen [Mass/Vol] 46.0 mg/dL Critically high 7.0-18.0 [facility] Comment on above: Performed By: #### C MP ####[facility] Wrttxsttla06[address] [place], [place] [address]Dr. Emelina Navarro Urea nitrogen/Creatinine [Mass ratio] 26.9 mg/mg Normal [facility] Comment on above: Performed By: #### C MP ####[facility] Fxvxtxexox[address] [place], [place] [address]Dr. Emelina Navarro XR CHEST 2 Von 04-30-2022 XR CHEST 2 V Normal [facility] CBC AUTO DIFFon 04-29-2022 BASO # 0.0 103/ul Normal 0.0-0.1 [facility] Comment on above: Performed By: #### C BC ####[facility] Z[address]hqyqkjo13[address] [place], [place] [address]Dr. Emelina Navarro Basophils/100 WBC (Bld) 0.1 % Critically low 0.2-2.0 [facility] Comment on above: Performed By: #### C BC ####[facility] Jmdjszdowa6[address] [place], [place] [address]Dr. Emelina Navarro EO # 0.0 103/ul Normal 0.0-0.7 [facility] Comment on above: Performed By: #### C BC ####[facility] Aurxqjtlzk2777 [place] [address]Dr. Emelina Navarro Eosinophils/100 WBC (Bld) 0.0 % Critically low 0.9-7.0 [facility] Comment on above: Performed By: #### C BC ####[facility] Kssxgtozvk05[address] [place], [place] [address]Dr. Emelina Navarro Erythrocyte distribution width (RBC) [Ratio] 16.2 % Critically high 11.0-15.0 [facility] Comment on above: Performed By: #### C BC ####[facility] Joppxeslft[address] [place], [place] [address]Dr. Emelina Navarro Hematocrit (Bld) [Volume fraction] 40.6 % Critically low 42.0-54.0 [facility] Comment on above: Performed By: #### C BC ####[facility] Xrykbjrsid007[address] [place], [place] [address]Dr. Emelina Navarro Hemoglobin (Bld) [Mass/Vol] 13.2 g/dL Critically low 14.0-18.0 [facility] Comment on above: Performed By: #### C BC ####[facility] Tclxjhltfg[address] [place], [place] [address]Dr. Awildanitza Navarro IG # 0.11 10e3/ul Critically high 0.00-0.03 [facility] Comment on above: Performed By: #### C BC ####[facility] Cwcfgidhpf[address] [place], [place] [address]Dr. Emelina Ramon IG % 0.6 % Critically high 0.0-0.5 [facility] Comment on above: Performed By: #### C BC ####[facility] Gbkaahvrvf[address] [place], [place] [address]DrWesley Kaisernitza Ramon LYMPH # 1.1 103/ul Critically low 1.2-3.8 [facility] Comment on above: Performed By: #### C BC ####[facility] Lljmbankfv[address] [place], [place] [address]Dr. Emelina Navarro Lymphocytes/100 WBC (Bld) 5.6 % Critically low 20.5-60.0 [facility] Comment on above: Performed By: #### C BC ####[facility] Svfekgsbmn2182 [place] [address]Dr. Emelina Navarro MANUAL DIFF REQ NO Normal [facility] Comment on above: Performed By: #### C BC ####[facility] Flbtjccpcu9098 [place] [address]Dr. Emelina Navarro MCH (RBC) [Entitic mass] 29.1 pg Normal 25.9-34.0 [facility] Comment on above: Performed By: #### C BC ####[facility] Itrmjgtpbm65[address] [place], [place] [address]Dr. Emelina Navarro MCHC (RBC) [Mass/Vol] 32.5 g/dL Normal 29.9-35.2 [facility] Comment on above: Performed By: #### C BC ####[facility] Mbechjijnq[address] [place], [place] [address]Dr. Emelina Navarro MCV (RBC) [Entitic vol] 89.4 fL Normal 80.0-94.0 [facility] Comment on above: Performed By: #### C BC ####[facility] Kubwdwunfj[address] [place], [place] [address]Dr. Emelina Navarro MONO # 0.6 103/ul Normal 0.3-0.8 [facility] Comment on above: Performed By: #### C BC ####[facility] Iqsnphdgnb[address] [place], [place] [address]Dr. Emelina Navarro Monocytes/100 WBC (Bld) 3.2 % Normal 1.7-12.0 [facility] Comment on above: Performed By: #### C BC ####[facility] Mmrynmeqfq[address] [place], [place] [address]DrWesley Navarro NEUT # 17.4 103/ul Critically high 1.4-6.5 [facility] Comment on above: Performed By: #### C BC ####[facility] Lhhbidkivv22[address] [place], [place] [address]Dr. Emelina Navarro Neutrophils/100 WBC (Bld) 90.5 % Critically high 43.0-75.0 [facility] Comment on above: Performed By: #### C BC ####[facility] Uubyfyblsr3301 [place] [address]Dr. Emelina Navarro Platelet mean volume (Bld) [Entitic vol] 10.3 fL Normal 9.5-13.5 [facility] Comment on above: Performed By: #### C BC ####[facility] Kmitngxzng8130 [place] [phone]. Emelina Navarro PLT 175 103/ul Normal 150-450 [facility] Comment on above: Performed By: #### C BC ####[facility] Gieldonqvy9869 [place] [address]Dr. Emelina Navarro RBC 4.54 106/ul Critically low 4.70-6.10 [facility] Comment on above: Performed By: #### C BC ####[facility] Cfzpblfycd1906 [place] [phone]. Emelina Navarro WBC 19.2 103/ul Critically high 4.0-11.0 [facility] Comment on above: Performed By: #### C BC ####[facility] Nvrtwibkhn5510 [place] [phone]. Emelina Navarro [facility]on 04-19 SARS-CoV-2 (COVID-19) RNA RADHA+probe Ql (Unsp spec) Not detected Normal NOT DETECTED [facility] Comment on above: Result Comment: When [...] for this test is supported by the [place] of Health and Human Service's declaration that [...] be used). Performed By: #### C VDTB ####[facility] Mhosrvloej9360 [place] [address]Dr. Emelina Navarro LIPASEon 04-29-2022 Lipase [Catalytic activity/Vol] 74.0 U/L Normal 73.0-393.0 [facility] Comment on above: Performed By: #### L IPA ####[facility] [address]dtcqcu[address] [place], [place] [address]Dr. Emelina Navarro PROF 14(COMP METB)on 022 Albumin [Mass/Vol] 2.8 g/dL Critically low 3.4-5.0 [facility] Comment on above: Performed By: #### C MP ####[facility] Hpnvddawho[address] [place], [place] [address]Dr. Emelina Navarro Albumin/Globulin [Mass ratio] 0.7 {ratio} Normal [facility] Comment on above: Performed By: #### C MP ####[facility] Gxsgtpadva64[address] [place], [place] [address]Dr. Emelina Navarro ALP [Catalytic activity/Vol] 70 U/L Normal 46-116 [facility] Comment on above: Performed By: #### C MP ####[facility] Guszvuqpbf18[address] [place], [place] [address]Dr. Emelina Navarro ALT [Catalytic activity/Vol] 456 U/L Critically high 16-63 [facility] Comment on above: Performed By: #### C MP ####[facility] Gjxwzgbyze10[address] [place], [place] [address]Dr. Emelina Navarro Anion gap [Moles/Vol] 14.7 mmol/L Normal [facility] Comment on above: Performed By: #### C MP ####[facility] Hltwqxtiib064[address] [place], [place] [address]Dr. Emelina Navarro AST [Catalytic activity/Vol] 388 U/L Critically high 15-37 [facility] Comment on above: Performed By: #### C MP ####[facility] Ebvlewhvun0959 [place] [address]Dr. Emelina Ramon Bilirubin [Mass/Vol] 1.2 mg/dL Critically high 0.2-1.0 [facility] Comment on above: Performed By: #### C MP ####[facility] Llunrhtanm8139 [place] [address]Dr. Emelina Navarro Calcium [Mass/Vol] 7.8 mg/dL Critically low 8.5-10.1 [facility] Comment on above: Performed By: #### C MP ####[facility] Xwokjntbam[address] [place], [place] [address]Dr. Emelina Navarro Chloride [Moles/Vol] 103 mmol/L Normal 98-107 [facility] Comment on above: Performed By: #### C MP ####[facility] Jnlbwwwjyo09[address] [place], [place] [address]Dr. Emelina Navarro CO2 [Moles/Vol] 20.8 mmol/L Critically low 21.0-32.0 [facility] Comment on above: Performed By: #### C MP ####[facility] Lycyfhirtp037[address] [place], [place] [address]Dr. Emelina Ramon Creatinine [Mass/Vol] 1.79 mg/dL Critically high 0.70-1.30 [facility] Comment on above: Performed By: #### C MP ####[facility] Aouspjirnb66[address] [place], [place] [address]Dr. Awildanitza Ramon EGFR-AF ZIMBABWEAN 46 mL/min/1.73m2 Critically low >=60 [facility] Comment on above: Performed By: #### C MP ####[facility] Odzcjhfsww[address] [place], [place] [address]Dr. Emelina Navarro EGFR-NON AF ZIMBABWEAN 38 mL/min/1.73m2 Critically low >=60 [facility] Comment on above: Performed By: #### C MP ####[facility] Wnyolrhpco[address] [place], [place] [address]Dr. Emelina Navarro Globulin (S) [Mass/Vol] 3.9 g/dL Normal [facility] Comment on above: Performed By: #### C MP ####[facility] Cqksmarkeq8625 [place] [address]Dr. Awildanitza Ramon Glucose [Mass/Vol] 313 mg/dL Critically high 74-106 [facility] Comment on above: Performed By: #### C MP ####[facility] Ibpaaizxuf3847 [place] [address]Dr. Emelina Navarro Potassium [Moles/Vol] 3.5 mmol/L Normal 3.5-5.1 [facility] Comment on above: Performed By: #### C MP ####[facility] Ryjbafxoxg1110 [place] [address]Dr. Emelina Navarro Protein [Mass/Vol] 6.7 g/dL Normal 6.4-8.2 [facility] Comment on above: Performed By: #### C MP ####[facility] Ylmkomukst5[address] [place], [place] [address]Dr. Emelina Navarro Sodium [Moles/Vol] 135 mmol/L Critically low 136-145 [facility] Comment on above: Performed By: #### C MP ####[facility] Tdipxxdgig8566[address] [place], [place] [address]Dr. Emelina Navarro Urea nitrogen [Mass/Vol] 41.0 mg/dL Critically high 7.0-18.0 [facility] Comment on above: Performed By: #### C MP ####[facility] Zouwslqzcr02[address] [place], [place] [address]Dr. Emelina Navarro Urea nitrogen/Creatinine [Mass ratio] 22.9 mg/mg Normal [facility] Comment on above: Performed By: #### C MP ####[facility] Pvqmmhfiqw72[address] [place], [place] [address]Dr. Emelina Navarro US SINGLE QUAD RT UPPERon US SINGLE QUAD RT UPPER Normal [facility] BLOOD GASES BTYon 04-28-2022 02 MODE NASAL CANNULA Normal [facility] Comment on above: Result Comment: rese rvoir cannula Performed By: #### A BG ####[facility] Cxelzlaqyo5465 [place] [address]Dr. Emelina Navarro ALLENS TEST Positive Normal [facility] Comment on above: Performed By: #### A BG ####[facility] Jghgpjxlen4254 [place] [address]Dr. Emelina Navarro Base excess Calc (Bld) [Moles/Vol] -6.6000 mmol/L Critically low -2.0-2.0 [facility] Comment on above: Performed By: #### A BG ####[facility] Lfbvzczujt6018 [place] [address]Dr. Emelina Navarro BIPAP PRESSURE Normal [facility] Comment on above: Performed By: #### A BG ####[facility] Upojjwkeae76[address] [place], [place] [address]Dr. Emelina Navarro CO2 [Moles/Vol] 34.0 mmol/L Critically high 23.0-28.0 [facility] Comment on above: Performed By: #### A BG ####[facility] Oixtxxvrrg68[address] [place], [place] [address]Dr. Emelina Navarro CPAP Normal [facility] Comment on above: Performed By: #### A BG ####[facility] Othnaiqfci4399[address] [place], [place] [address]Dr. Emelina Navarro FIO2 Normal [facility] Comment on above: Performed By: #### A BG ####[facility] Jtaujicvot420[address] [place], [place] [address]Dr. Emelina Navarro HCO3 (Bld) [Moles/Vol] 20.5 mmol/L Critically low 22.0-26.0 [facility] Comment on above: Performed By: #### A BG ####[facility] Lwtxiivvff8[address] [place], [place] [address]Dr. Emelina Navarro LPM 5 Normal [facility] Comment on above: Performed By: #### A BG ####[facility] Dnqutsjazh79[address] [place], [place] [address]Dr. Emelina Navarro MINUTE VOLUME Normal [facility] Comment on above: Performed By: #### A BG ####[facility] Qnmeqrqbws6053 [place] [address]Dr. Emelina Navarro Oxygen (Bld) [Partial pressure] 62.0 mm[Hg] Critically low 80.0-100.0 [facility] Comment on above: Performed By: #### A BG ####[facility] Ehcqkkrnrv1950[address] [place], [place] [address]Dr. Emelina Navarro Oxygen saturation in Blood 92.6 % Critically low 95.0-100.0 [facility] Comment on above: Performed By: #### A BG ####[facility] Biivxhhrwo3129[address] [place], [place] [address]Dr. Emelina Navarro PCO2 25.7 mmHg Critically low 35.0-45.0 [facility] Comment on above: Performed By: #### A BG ####[facility] Enlpmgfcbf356[address] [place], [place] [address]Dr. Emelina Navarro PEEP [facility] Comment on above: Performed By: #### A BG ####[facility] Qhdbjsdkul8905[address] [place], [place] [address]Dr. Emelina Navarro pH (Bld) 7.443 [pH] Normal 7.350-7.45 0 [facility] Comment on above: Performed By: #### A BG ####[facility] Jexjxgzxtn7984[address] [place], [place] [address]Dr. Emelina Navarro PIP Normal [facility] Comment on above: Performed By: #### A BG ####[facility] Nyehqlhujg[address] [place], [place] [address]Dr. Emelina Navarro PS Normal [facility] Comment on above: Performed By: #### A BG ####[facility] Gwcjqlrpfs4[address] [place], [place] [address]Dr. Emelina Navarro PUNCTURE SITE LR Normal [facility] Comment on above: Performed By: #### A BG ####[facility] Ivykgrcdra2170[address] [place], [place] [address]Dr. Emelina Navarro RATE Normal [facility] Comment on above: Performed By: #### A BG ####[facility] Ednjmdgmmv1924[address] [place], [place] [address]Dr. Emelina Navarro VENT MODE Normal [facility] Comment on above: Performed By: #### A BG ####[facility] Pjsgzmgzwt6022 [place] [address]Dr. Emelina Navarro VT Normal [facility] Comment on above: Performed By: #### A BG ####[facility] Ikjfmrsdcl9006 [place] [address]Dr. Emelina Navarro BNPon 04-28-2022 Natriuretic peptide B (Bld) [Mass/Vol] 68126.0 pg/mL Critically high <=900.0 [facility] Comment on above: Performed By: #### C MP, BNP, CMADM ####[facility] Xchdpliryf3662 [place] [address]Dr. Emelina Navarro CARDIAC IMTIAZ ADMITon 022 CK [Catalytic activity/Vol] 86 U/L Normal 39-308 [facility] Comment on above: Performed By: #### C MP, BNP, CMADM ####[facility] Hhpjgsvtuw6784 [place] [address]Dr. Emelina Ramon CK.MB [Mass/Vol] 1.41 ng/mL Normal <=3.60 [facility] Comment on above: Performed By: #### C MP, BNP, CMADM ####[facility] Tcnzgswfjo8751 [place] [address]Dr. Emelina Navarro HSTROP 63.7 pg/mL Normal 4.0-76.1 [facility] Comment on above: Result Comment: CUT- OFF POINTS HAVE BEEN ESTABLISHED BASED ON THE FOURTH UNIVERSAL DEFINITIONS OF MYOCARDIALINFARCTION. THE UPPER REFERENCE LIMIT (URL) OF TROPONIN, DEFINED THE 99TH PERCENTILE OFcTnI DISTRIBUTION IN A REFERENCE POPULATION, HAS BEEN CONFIRMED THE DECISION THRESHOLDFOR WV DIAGNOSIS. Performed By: #### C MP, BNP, CMADM ####[facility] Pegglrltcw6600 [place] [address]Dr. Emelina Ramon URBANO 276 ng/mL Critically high 16-96 [facility] Comment on above: Performed By: #### C MP, BNP, CMADM ####[facility] Mlsfpypvtj6959 [place] [address]Dr. Emelina Navarro CBC AUTO DIFFon 04-28-2022 BASO # 0.0 103/ul Normal 0.0-0.1 [facility] Comment on above: Performed By: #### C BC ####[facility] Ouexffzrch1730 [place] [address]Dr. Emelnia Navarro Basophils/100 WBC (Bld) 0.2 % Normal 0.2-2.0 [facility] Comment on above: Performed By: #### C BC ####[facility] Gytuovfslg9115 [place] [address]Dr. Emelina Navarro EO # 0.0 103/ul Normal 0.0-0.7 [facility] Comment on above: Performed By: #### C BC ####[facility] Sewinbuzxr8738 [place] [address]Dr. Emelina Ramon Eosinophils/100 WBC (Bld) 0.1 % Critically low 0.9-7.0 [facility] Comment on above: Performed By: #### C BC ####[facility] Uidfrrkyqq0727 [place] [address]Dr. Emelina Navarro Erythrocyte distribution width (RBC) [Ratio] 16.5 % Critically high 11.0-15.0 [facility] Comment on above: Performed By: #### C BC ####[facility] Sjhalvqtfm7572 [place] [address]Dr. Emelina Navarro Hematocrit (Bld) [Volume fraction] 45.2 % Normal 42.0-54.0 [facility] Comment on above: Performed By: #### C BC ####[facility] Qwmthkghcw5811 [place] [address]Dr. Emelina Navarro Hemoglobin (Bld) [Mass/Vol] 14.8 g/dL Normal 14.0-18.0 [facility] Comment on above: Performed By: #### C BC ####[facility] Qtovpstupv3682 [place] [address]Dr. Emelina Ramon IG # 0.14 10e3/ul Critically high 0.00-0.03 [facility] Comment on above: Performed By: #### C BC ####[facility] Upmrtvvubg6847 [place], [place] [address]Mx. Emelina Navarro IG % 0.9 % Critically high 0.0-0.5 [facility] Comment on above: Performed By: #### C BC ####[facility] Nkuzhilldf2079 [place], [place] [address]Fq. Emelina Navarro LYMPH # 0.8 103/ul Critically low 1.2-3.8 [facility] Comment on above: Performed By: #### C BC ####[facility] Fxtpobfkex6510 [place] [address]Dr. Emelina Navarro Lymphocytes/100 WBC (Bld) 5.1 % Critically low 20.5-60.0 [facility] Comment on above: Performed By: #### C BC ####[facility] Xrunzpyeye8151 [place] [address]Dr. Emelina Navarro MANUAL DIFF REQ NO Normal [facility] Comment on above: Performed By: #### C BC ####[facility] Bopssalrda8168 [place] [address]Dr. Emelina Navarro MCH (RBC) [Entitic mass] 29.3 pg Normal 25.9-34.0 [facility] Comment on above: Performed By: #### C BC ####[facility] Pvpmuyfeit3747 [place] [address]Dr. Emelina Navarro MCHC (RBC) [Mass/Vol] 32.7 g/dL Normal 29.9-35.2 [facility] Comment on above: Performed By: #### C BC ####[facility] Ldedxqpglu9903 [place] [address]Dr. Emelina Navarro MCV (RBC) [Entitic vol] 89.5 fL Normal 80.0-94.0 [facility] Comment on above: Performed By: #### C BC ####[facility] Qjmnnnwwtm9565 [place] [address]Dr. Emelina Navarro MONO # 1.1 103/ul Critically high 0.3-0.8 [facility] Comment on above: Performed By: #### C BC ####[facility] Gugogpwuyf5976 [place] [address]Dr. Emelina Navarro Monocytes/100 WBC (Bld) 7.0 % Normal 1.7-12.0 [facility] Comment on above: Performed By: #### C BC ####[facility] Vagbktiblz7318 [place] [address]Dr. Emelina Navarro NEUT # 13.3 103/ul Critically high 1.4-6.5 [facility] Comment on above: Performed By: #### C BC ####[facility] Xekatybvyu4333 [place] [address]Dr. Emelina Navarro Neutrophils/100 WBC (Bld) 86.7 % Critically high 43.0-75.0 [facility] Comment on above: Performed By: #### C BC ####[facility] Xihwmfceiz5323 [place] [address]Dr. Emelina Navarro Platelet mean volume (Bld) [Entitic vol] 10.7 fL Normal 9.5-13.5 [facility] Comment on above: Performed By: #### C BC ####[facility] Hnzdlfnitz1152 [place] [address]Dr. Emelina Navarro PLT 200 103/ul Normal 150-450 [facility] Comment on above: Performed By: #### C BC ####[facility] Bfrslnglxg[address] [place], [place] [address]Dr. Emelina Navarro RBC 5.05 106/ul Normal 4.70-6.10 [facility] Comment on above: Performed By: #### C BC ####[facility] Edwmauuonl[address] [place], [place] [address]Dr. Emelina Navarro WBC 15.4 103/ul Critically high 4.0-11.0 [facility] Comment on above: Performed By: #### C BC ####[facility] Jmqagnmcqq[address] [place], [place] [address]Dr. Emelina Navarro CULTURE BLOODon 04-28-2022 Microscopic examination of blood, culture Culture Observations: NO GROWTH AT 5 DAYS. Normal [facility] Comment on above: Performed By: #### B LDCX2 ####[facility] Mxlgsedybu2814 [place] [address]Dr. Emelina Navarro Microscopic examination of blood, culture Culture Observations: NO GROWTH AT 5 DAYS. Normal [facility] Comment on above: Performed By: #### B LDCX1 ####[facility] Lsdirpvymr9805 [place] [address]Dr. Emelina Navarro Covid-19 PCR (CVDTB)on 04-19 SARS-CoV-2 (COVID-19) RNA RADHA+probe Ql (Unsp spec) Not detected Normal NOT DETECTED [facility] Comment on above: Result Comment: When [...] for this test is supported by the Senior It Specialist of Health and Human Service's declaration that [...] be used). Performed By: #### C VDTBH ####[facility] Sqezqdfxjj1167 [place] [address]Dr. Emelina Navarro DIGOXINon 04-28-2022 DIG 0.8 ng/mL Critically low 0.9-2.0 [facility] Comment on above: Performed By: #### D IG ####[facility] Tfjpwtueax7846 [place] [address]Dr. Emelina Nvaarro ER URINE PROFILEon 2 Bilirubin Ql (U) Negative Normal NEGATIVE [facility] Comment on above: Performed By: #### E PATRIZIA POLK ####[facility] Wvmtgnktaf1714 [place] [address]Dr. Emelina Navarro Clarity (U) CLEAR Normal CLEAR [facility] Comment on above: Performed By: #### LINDSAY BOLANDRO ####[facility] Wmpztyqiel6227 [place] [address]Dr. Emelina Navarro Color (U) YELLOW Normal YELLOW [facility] Comment on above: Performed By: #### LINDSAY BOLANDRO ####[facility] Kwzsuxqdhw5144 [place] [address]Dr. Emelina Navarro ERUAHD A micrscopic examina tion will be performed if indicated. Normal [facility] Comment on above: Performed By: #### LINDSAY BLOANDRO ####[facility] Zmdkhkhjwo0589 [place] [address]Dr. Emelina Navarro Glucose Ql (U) 500 mg/dl Abnormal NEGATIVE [facility] Comment on above: Performed By: #### LINDSAY BOLANDRO ####[facility] Uegbowdypj9224 [place] [address]Dr. Emelina Navarro Hemoglobin Ql (U) MODERATE Abnormal NEGATIVE [facility] Comment on above: Performed By: #### LINDSAY BOLANDRO ####[facility] Unqkarynal8956 [place] [address]Dr. Emelina Navarro Ketones Ql (U) Negative Normal NEGATIVE [facility] Comment on above: Performed By: #### LINDSAY BOLANDRO ####[facility] Psduznvzhl3342 [place] [address]Dr. Emelina Navarro LEUKOCYTES Negative Normal NEGATIVE [facility] Comment on above: Performed By: #### LINDSAY BOLANDRO ####[facility] Aidrdsinhz7904 [place] [address]Dr. Emelina Navarro Nitrite Ql (U) Negative Normal NEGATIVE [facility] Comment on above: Performed By: #### Hitesh POLK UMICRO ####[facility] Ldodaxcvlu0724 [place] [address]Dr. Emelina Navarro pH (U) 5.0 [pH] Normal 5-9 [facility] Comment on above: Performed By: #### PATRIZIA BOLAND ####[facility] Alidntdnny6781 [place] [address]Dr. Emelina Navarro Protein (U) [Mass/Vol] 100 mg/dL Abnormal NEGATIVE/ TRACE [facility] Comment on above: Performed By: #### LINDSAY BOLANDRO ####[facility] Ihfclndevb7493 [place] [address]Dr. Emelina Navarro SPEC GRAVITY 1.025 Normal 1.005-<=1. 025 [facility] Comment on above: Performed By: #### LINDSAY BOLANDRO ####[facility] Kqyuodznub[address] [place], [place] [address]Dr. Emelina Navarro UR MICRO IND INDICATED Normal [facility] Comment on above: Performed By: #### PATRIZIA BOLAND ####[facility] Namxnzahoz3014[address] [place], [place] [address]Dr. Emelina Navarro Urobilinogen Qn (U) 0.2 {Ashley'U}/dL Normal 0.2 - 1. 0 [facility] Comment on above: Performed By: #### PATRIZIA BOLAND ####[facility] Kqzytszzqu9[address] [place], [place] [address]Dr. Emelina Navarro LACTATE/LACTIC ACIDon 2021 Lactate [Moles/Vol] 5.1 mmol/L Critically high 0.4-1.9 [facility] Comment on above: Performed By: #### L ACT ####[facility] Ieusinqwfo39[address] [place], [place] [address]Dr. Emelina Navarro Lactate [Moles/Vol] 4.8 mmol/L Critically high 0.4-1.9 [facility] Comment on above: Performed By: #### L ACT ####[facility] Ckqhupcpkb[address] [place], [place] [address]Dr. Emelina Navarro Lactate [Moles/Vol] 5.4 mmol/L Critically high 0.4-1.9 [facility] Comment on above: Performed By: #### L ACT ####[facility] Kjcszibsws[address] [place], [place] [address]Dr. Emelina Navarro POINT OF CARE GLUCOSEon 04-19 Glucose [Mass/Vol] 426 mg/dL Critically high 74-106 [facility] Comment on above: Performed By: #### P OCGLUC ####[facility] Hsayffmuey1541 [place] [id number]. Emelina Navarro Glucose [Mass/Vol] 476 mg/dL Critically high 74-106 [facility] Comment on above: Performed By: #### P OCGLUC ####[facility] Lshjwxsuct5279 [place] [address]Dr. Emelina Navarro Glucose [Mass/Vol] 347 mg/dL Critically high 74-106 [facility] Comment on above: Performed By: #### P OCGLUC ####[facility] Gzhdxrqrcb7189 [place] [address]Dr. Emelina Navarro PROF 14(COMP METB)on 022 Albumin [Mass/Vol] 3.4 g/dL Normal 3.4-5.0 [facility] Comment on above: Performed By: #### C MP, BNP, CMADM ####[facility] Gljncfkggh0536 [place] [address]Dr. Emelina Navarro Albumin/Globulin [Mass ratio] 0.8 {ratio} Normal [facility] Comment on above: Performed By: #### C MP, BNP, CMADM ####[facility] Drxiaujxcq9522 [place] [address]Dr. Emelina Navarro ALP [Catalytic activity/Vol] 85 U/L Normal 46-116 [facility] Comment on above: Performed By: #### C MP, BNP, CMADM ####[facility] Orkemgcsxy8532 [place] [id number]. Emelina Navarro ALT [Catalytic activity/Vol] 246 U/L Critically high 16-63 [facility] Comment on above: Performed By: #### C MP, BNP, CMADM ####[facility] Apoyabwplb1553 [place] [address]Dr. Emelina Navarro Anion gap [Moles/Vol] 20.7 mmol/L Normal [facility] Comment on above: Performed By: #### C MP, BNP, CMADM ####[facility] Lodtgstwif9633 [place] [address]Dr. Emelina Navarro AST [Catalytic activity/Vol] 299 U/L Critically high 15-37 [facility] Comment on above: Performed By: #### C MP, BNP, CMADM ####[facility] Dnvvlodrjl9852 [place] [address]Dr. Emelina Navarro Bilirubin [Mass/Vol] 2.7 mg/dL Critically high 0.2-1.0 [facility] Comment on above: Performed By: #### C MP, BNP, CMADM ####[facility] Brrsfjbkqa[address] [place], [place] [address]Dr. Emelina Navarro Calcium [Mass/Vol] 8.5 mg/dL Normal 8.5-10.1 [facility] Comment on above: Performed By: #### C MP, BNP, CMADM ####[facility] Acsfochker[address] [place], [place] [address]Dr. Emelina Navarro Chloride [Moles/Vol] 96 mmol/L Critically low 98-107 [facility] Comment on above: Performed By: #### C MP, BNP, CMADM ####[facility] Jibvcoqash89[address] [place], [place] [address]Dr. Emelina Navarro CO2 [Moles/Vol] 19.3 mmol/L Critically low 21.0-32.0 [facility] Comment on above: Performed By: #### C MP, BNP, CMADM ####[facility] Glrcpvgcml[address] [place], [place] [address]Dr. Emelina Navarro Creatinine [Mass/Vol] 2.46 mg/dL Critically high 0.70-1.30 [facility] Comment on above: Performed By: #### C MP, BNP, CMADM ####[facility] Eccpjibnbi[address] [place], [place] [address]Dr. Emelina Navarro EGFR-AF ZIMBABWEAN 32 mL/min/1.73m2 Critically low >=60 [facility] Comment on above: Performed By: #### C MP, BNP, CMADM ####[facility] Kxxvemvwds4675 [place] [address]Dr. Emelina Navarro EGFR-NON AF ZIMBABWEAN 26 mL/min/1.73m2 Critically low >=60 [facility] Comment on above: Performed By: #### C MP, BNP, CMADM ####[facility] Gsrdetqbqu0675 [place] [address]Dr. Emelina Navarro Globulin (S) [Mass/Vol] 4.4 g/dL Normal [facility] Comment on above: Performed By: #### C MP, BNP, CMADM ####[facility] Ianmxfjbfu9508 [place] [address]Dr. Emelina Navarro Glucose [Mass/Vol] 359 mg/dL Critically high 74-106 [facility] Comment on above: Performed By: #### C MP, BNP, CMADM ####[facility] Ssefjdzjzk4013 [place] [address]Dr. Emelina Navarro Potassium [Moles/Vol] 7.0 mmol/L Critically high 3.5-5.1 [facility] Comment on above: Performed By: #### C MP, BNP, CMADM ####[facility] Xyhfhwteis9276 [place] [address]Dr. Emelina Navarro Protein [Mass/Vol] 7.8 g/dL Normal 6.4-8.2 [facility] Comment on above: Performed By: #### C MP, BNP, CMADM ####[facility] Qalovliiqn9566 [place] [address]Dr. Emelina Navarro Sodium [Moles/Vol] 129 mmol/L Critically low 136-145 [facility] Comment on above: Performed By: #### C MP, BNP, CMADM ####[facility] Hugbwswqsp1400 [place] [address]Dr. Emelina Navarro Urea nitrogen [Mass/Vol] 37.0 mg/dL Critically high 7.0-18.0 [facility] Comment on above: Performed By: #### C MP, BNP, CMADM ####[facility] Drjdokgxfn9886 [place] [address]Dr. Emelina Navarro Urea nitrogen/Creatinine [Mass ratio] 15.0 mg/mg Normal [facility] Comment on above: Performed By: #### C MP, BNP, CMADM ####[facility] Bsvqeovpyh9580 [place] [address]Dr. Emelina Ramon PROF CHEM 8 (BAS METB)on Anion gap [Moles/Vol] 19.2 mmol/L Normal [facility] Comment on above: Performed By: #### B MP ####[facility] Spmjbxkmal4463 [place] [address]Dr. Emelina Ramon Calcium [Mass/Vol] 7.7 mg/dL Critically low 8.5-10.1 [facility] Comment on above: Performed By: #### B MP ####[facility] Ldkgatmcwp[address] [place], [place] [address]Dr. Emelina Navarro Chloride [Moles/Vol] 97 mmol/L Critically low 98-107 [facility] Comment on above: Performed By: #### B MP ####[facility] Ycjucoladk[address] [place], [place] [address]Dr. Emelina Navarro CO2 [Moles/Vol] 20.5 mmol/L Critically low 21.0-32.0 [facility] Comment on above: Performed By: #### B MP ####[facility] Wrfphgagyg[address] [place], [place] [address]Dr. Awildanitza Ramon Creatinine [Mass/Vol] 2.18 mg/dL Critically high 0.70-1.30 [facility] Comment on above: Performed By: #### B MP ####[facility] [address]ot[address] [place] [address]Dr. Emelina Navarro EGFR-AF ZIMBABWEAN 37 mL/min/1.73m2 Critically low >=60 [facility] Comment on above: Performed By: #### B MP ####[facility] Iqfyncdzka[address] [place], [place] [address]Dr. Emelina Navarro EGFR-NON AF ZIMBABWEAN 30 mL/min/1.73m2 Critically low >=60 [facility] Comment on above: Performed By: #### B MP ####[facility] Navhdntnut[address] [place] [id number]. Emelina Navarro Glucose [Mass/Vol] 434 mg/dL Critically high 74-106 [facility] Comment on above: Performed By: #### B MP ####[facility] Smudueckuv[address] [place], [place] [address]Dr. Emelina Navarro Potassium [Moles/Vol] 4.7 mmol/L Normal 3.5-5.1 [facility] Comment on above: Performed By: #### B MP ####[facility] P[address]qkxqkjs[address] [place], [place] [address]Dr. Emelina Navarro Sodium [Moles/Vol] 132 mmol/L Critically low 136-145 [facility] Comment on above: Performed By: #### B MP ####[facility] Mravdcmqgg754[address] [place], [place] [address]Dr. Emelina Navarro Urea nitrogen [Mass/Vol] 37.0 mg/dL Critically high 7.0-18.0 [facility] Comment on above: Performed By: #### B MP ####[facility] Fhttxwjlkz[address] [place], [place] [address]Dr. Emelina Navarro Urea nitrogen/Creatinine [Mass ratio] 17.0 mg/mg Normal [facility] Comment on above: Performed By: #### B MP ####[facility] Ixyieejqvc56[address] [place], [place] [address]Dr. Emelina Navarro PROTIMEon 04-28-2022 INR Coag (PPP) [Relative time] 1.91 {INR} Normal [facility] Comment on above: Performed By: #### P TT, PT ####[facility] Uwtcxtslhz[address] [place], [place] [address]Dr. Emelina Navarro INR GUIDELINES SEE BELOW Normal [facility] Comment on above: Result Comment: WENDY RED INR: 2.0 - 3.0 CONDITIONS NOT LISTED BELOW 2.5 - 3.5 FOR PROSTHETIC HEART VALVE REPLACEMENT 2.5 - 3.5 RECURRENT THROMBOSIS Performed By: #### P TT, PT ####[facility] Mkjzwcneio[address] [place], [place] [address]Dr. Emelina Navarro PT Coag (PPP) [Time] 19.8 s Critically high 9.0-11.6 [facility] Comment on above: Performed By: #### P TT, PT ####[facility] Elzybosgka[address] [place], [place] [address]Dr. Emelina Navarro PTTon 04-28-2022 aPTT Coag (Bld) [Time] 33.0 s Normal 22.3-36.2 [facility] Comment on above: Performed By: #### P TT, PT ####[facility] Tmruilrroo8[address] [place], [place] [address]Dr. Emelina Navarro RESPIRATORY PANEL PLUSon Adenovirus Not detected Normal NOT DETECTED [facility] Comment on above: Performed By: #### R SPLUS ####[facility] Bgkegyyihd[address] [place], [place] [address]Dr. Emelina Navarro B. Parapertusis Not detected Normal NOT DETECTED [facility] Comment on above: Performed By: #### R SPLUS ####[facility] Yiqplgxtfe[address] [place], [place] [address]Dr. Emelina Navarro B. Pertussis Not detected Normal NOT DETECTED [facility] Comment on above: Performed By: #### R SPLUS ####[facility] Wvkbxwyxpq10[address] [place], [place] [address]Dr. Emelina Navarro Chlamydia Pneumoniae Not detected Normal NOT DETECTED [facility] Comment on above: Performed By: #### R SPLUS ####[facility] Cjiygpadhu[address] [place], [place] [address]Dr. Awildanitza Navarro Coronavirus 229E Not detected Normal NOT DETECTED [facility] Comment on above: Performed By: #### R SPLUS ####[facility] Uskhyhglyi7[address] [place], [place] [address]Dr. Emelina Navarro Coronavirus HKU1 Not detected Normal NOT DETECTED [facility] Comment on above: Performed By: #### R SPLUS ####[facility] Zbhqzwjrio387[address] [place], [place] [address]Dr. Awildanitza Navarro Coronavirus NL63 Not detected Normal NOT DETECTED [facility] Comment on above: Performed By: #### R SPLUS ####[facility] [address] [place] [address]Dr. Emelina Navarro Coronavirus OC43 Not detected Normal NOT DETECTED [facility] Comment on above: Performed By: #### R SPLUS ####[facility] Boaxvlpyjh[address] [place], [place] [address]Dr. Emelina Navarro Influenza A H1 2009 Not detected Normal NOT DETECTED [facility] Comment on above: Performed By: #### R SPLUS ####[facility] Hsvvfxnstd[address] [place], [place] [address]Dr. Emelina Navarro Influenza A H3 Not detected Normal NOT DETECTED [facility] Comment on above: Performed By: #### R SPLUS ####[facility] Zppkpopjuz10[address] [place], [place] [address]Dr. Emelina Navarro Influenza B Not detected Normal NOT DETECTED [facility] Comment on above: Performed By: #### R SPLUS ####[facility] Gigczurnhe198[address] [place], [place] [address]Dr. Emelina Navarro Metapneumovirus Not detected Normal NOT DETECTED [facility] Comment on above: Performed By: #### R SPLUS ####[facility] Bnauivmcdb[address] [place], [place] [address]Dr. Emelina Navarro Mycoplas. Pneumoniae Not detected Normal NOT DETECTED [facility] Comment on above: Performed By: #### R SPLUS ####[facility] Iloclyyefz[address] [place], [place] [address]Dr. Emelina Navarro Parainfluenza 1 Not detected Normal NOT DETECTED [facility] Comment on above: Performed By: #### R SPLUS ####[facility] Wphryxidjd699[address] [place], [place] [address]Dr. Emelina Navarro Parainfluenza 2 Not detected Normal NOT DETECTED [facility] Comment on above: Performed By: #### R SPLUS ####[facility] Oeimweizco6[address] [place], [place] [address]Dr. Emelina Navarro Parainfluenza 3 Detected Abnormal NOT DETECTED [facility] Comment on above: Performed By: #### R SPLUS ####[facility] Rtxmocdxbu23[address] [place], [place] [address]Dr. Emelina Navarro Parainfluenza 4 Not detected Normal NOT DETECTED [facility] Comment on above: Performed By: #### R SPLUS ####[facility] Bmwouezqjg[address] [place], [place] [address]Dr. Emelina Navarro Rhino/Enterovirus Not detected Normal NOT DETECTED [facility] Comment on above: Performed By: #### R SPLUS ####[facility] Oleqlnftvw[address] [place], [place] [address]Dr. Emelina Navarro RP2 Header 1 RESPIRATORY PANEL: VIRUSES Normal [facility] Comment on above: Performed By: #### R SPLUS ####[facility] Czlibwkquu[address] [place], [place] [address]Dr. Emelina Navarro RP2 Header 2 RESPIRATORY PANEL: BACTERIA Normal [facility] Comment on above: Performed By: #### R SPLUS ####[facility] Vscbbxibgk[address] [place], [place] [address]Dr. Emelina Navarro RSV Not detected Normal NOT DETECTED [facility] Comment on above: Performed By: #### R SPLUS ####[facility] Zakgqarzmu[address] [place], [place] [address]Dr. Awildanitza Navarro SARS-CoV-2 (COVID-19) RNA RADHA+probe Ql (Unsp spec) Not detected Normal NOT DETECTED [facility] Comment on above: Performed By: #### R SPLUS ####[facility] Mlxwtuhbtg[address] [place], [place] [address]Dr. Emelina Navarro URINE MICROSCOPIC ONLYon BACTERIA NONE SEEN Normal NONE SEEN [facility] Comment on above: Performed By: #### LINDSAY BOLANDRO ####[facility] Rnnrqwbhaj[address] [place], [place] [address]Dr. Emelina Navarro Bacteria identified Cx Nom (U) NOT INDICATED Normal [facility] Comment on above: Performed By: #### RAMANDEEP BOLANDICRO ####[facility] Ofbhtjpldd[address] [place], [place] [address]Dr. Emelina Navarro CAST SEEN Abnormal NONE SEEN [facility] Comment on above: Performed By: #### Hitesh POLK UMICRO ####[facility] [address] [place] [address]Dr. Emelina Navarro Crystals LM Nom (Urine sed) NONE SEEN Normal NONE SEEN [facility] Comment on above: Performed By: #### Hitesh POLK UMICRO ####[facility] [address] [place] [address]Dr. Emelina Navarro Epithelial cells LM Ql (Urine sed) FEW Abnormal NONE SEEN /RARE [facility] Comment on above: Performed By: #### Hitesh POLK UMICRO ####[facility] X[address] [place] [address]Dr. Emelina Navarro HYALINE CAST MANY Normal [facility] Comment on above: Performed By: #### Hitesh POLK UMICRO ####[facility] X[address] [place] [address]Dr. Emelina Navarro MUCOUS NONE SEEN Normal NONE SEEN [facility] Comment on above: Performed By: #### Hitesh POLK UMICRO ####[facility] [address] [place] [address]Dr. Emelina Navarro RBC 0-2 Normal 0-2 [facility] Comment on above: Performed By: #### RAMANDEEP BOLANDICRO ####[facility] Q[address]ifinrb[address] [place] [address]Dr. Emelina Navarro WBC 0-2 Abnormal NONE SEEN [facility] Comment on above: Performed By: #### Hitesh POLK UMICRO ####[facility] [address]xp[address] [place] [address]Dr. Emelina Navarro XR CHEST 1 Von 04-28-2022 XR CHEST 1 V Normal [facility] Albumin [Mass/volume] in Ser um or PlasmaOrdered By: Ethan Cummings on 04-10-2022 Albumin [Mass/Vol] 3.8 g/dL 2.9-4.4 [facility] IgA [Mass/volume] in Serum o r PlasmaOrdered By: Ethan Cummings on 04-10-2022 IgA [Mass/Vol] 607 mg/dL 61-437 [facility] IgG [Mass/volume] in Serum o r PlasmaOrdered By: Ethan Cummings on 04-10-2022 IgG [Mass/Vol] 1207 mg/dL 603-1613 [facility] IgM [Mass/volume] in Serum o r PlasmaOrdered By: Ethan Cummings on 04-10-2022 IgM [Mass/Vol] 94 mg/dL 20-172 [facility] Comment on above: Performed at: [facility] [place] [address] [id number] Director: Alexis Winslow PhD, Phone: [phone] Immunoglobulin light chains. kappa.free [Mass/volume] in SerumOrdered By: Ethan Cummings on 04-10-2022 Immunoglobulin light chains.kappa.free (S) [Mass/Vol] 58.6 mg/L 3.3-19.4 [facility] Immunoglobulin light chains. kappa.free/Immunoglobulin light chains.lambda.free [MassOrdered By: Ethan Cummings on 04-10-2022 Immunoglobulin light chains.kappa.free/Imm unoglobulin light chains.lambda.free (S) [Mass ratio] 1.42 0.26-1.65 [facility] Comment on above: Performed at: [facility] [place] [address] [id number] Director: Alexis Winslow PhD, Phone: [phone] Immunoglobulin light chains. lambda.free [Mass/volume] in Serum or PlasmaOrdered By: Ethan Cummings on 04-10-2022 Immunoglobulin light chains.lambda.free [Mass/Vol] 41.2 mg/L 5.7-26.3 [facility] Laboratory - Hematology and Cell countsOrdered By: Ethan Cummings on 04-10-2022 Nucleated RBC/100 WBC (Bld) [Ratio] 0.0 % 0-0.5 [facility] No Panel InformationOrdered By: Ethan Cummings on 04-10-2022 BCR/abl See comment [facility] Comment on above: See report. Scanned copy available in EMR. CBC Comment See comment [facility] Comment on above: Slide referred to raquel thologist for review Platelet Estimate Normal Normal [facility] Platelet Morphology Comment Normal Normal [facility] Protein Electrophoresis M-Brenden Not observed g/dL Not Observed [facility] Protein Electrophoresis Note See comment . [facility] Comment on above: Protein electrophore sis scan will follow via computer,mail, or toll collector delivery.Performed at: [facility] [id number] Director: Alexis Winslow PhD, Phone: [phone] Serum Immunofixation See comment . [facility] Comment on above: No monoclonality det ected. Protein [Mass/volume] in Ser um or PlasmaOrdered By: Ethan Cummings on 04-10-2022 Protein [Mass/Vol] 7.4 g/dL 6.0-8.5 [facility] RBC morphologyOrdered By: Francis Cummings on 04-10-2022 RBC morphology finding Nom (Bld) Normal [facility] Serum globulin measurement ( mass/volume)Ordered By: Ethan Cummings on 04-10-2022 Globulin (S) [Mass/Vol] 3.6 g/dL 2.2-3.9 [facility] Serum or plasma albumin/glob ulin mass ratioOrdered By: Ethan Cummings on 04-10-2022 Albumin/Globulin [Mass ratio] 1.1 {ratio} 0.7-1.7 [facility] Serum or plasma alpha 1 glob ulin measurement by electrophoresis (mass/volume)Ordered By: Ethan Cummings on 04-10-2022 Alpha 1 globulin Elph [Mass/Vol] 0.2 g/dL 0.0-0.4 [facility] Serum or plasma alpha 2 glob ulin measurement by electrophoresis (mass/volume)Ordered By: Ethan Cummings on 04-10-2022 Alpha 2 globulin Elph [Mass/Vol] 0.9 g/dL 0.4-1.0 [facility] Serum or plasma beta globuli n measurement by electrophoresis (mass/volume)Ordered By: Ethan Cummings on 04-10-2022 Beta globulin Elph [Mass/Vol] 1.2 g/dL 0.7-1.3 [facility] Serum or plasma gamma globul in measurement by electrophoresis (mass/volume)Ordered By: Ethan Cummings on 04-10-2022 Gamma globulin Elph [Mass/Vol] 1.3 g/dL 0.4-1.8 [facility] Serum or plasma methylmalona te measurement (moles/volume)Ordered By: Ethan Cummings on 04-10-2022 Methylmalonate [Moles/Vol] 668 nmol/L 0-378 [facility] Comment on above: This test was develo ped and its performance characteristicsdetermined by [employer]. It has not been cleared orapproved by the Food and Drug Administration.Performed at: [address] [id number] Director: Natalia Vergara MD, Phone: [phone] XR foot LT min 3V*on 022 XR foot LT min 3V* [facility] [employer] Other XR foot LT min 3V* [facility] [employer] Other XR foot LT min 3V* [address] [place] [address] [employer] Other XR foot LT min 3V* [place] [address] [employer] Other XR foot LT min 3V* XRay Report [employer] Other XR foot LT min 3V* Signed [employer] Other XR foot LT min 3V* Patient: Adwoa Porter MR#: [id number] [employer] Other XR foot LT min 3V* 7 [employer] Other XR foot LT min 3V* : 1955 Acct:[id number] [employer] Other XR foot LT min 3V* Age/Sex: 66 / M ADM Date: 02/19/22 [employer] Other XR foot LT min 3V* Loc: XDUCLY Room: Ty pe: REG CLI [employer] Other XR foot LT min 3V* Attending Dr: Ruthie EUCEDA [employer] Other XR foot LT min 3V* Ordering Provider: KINSEY Jiménez [employer] Other XR foot LT min 3V* Date of Service: 02/19/22 [employer] Other XR foot LT min 3V* [id number]) XR/XR foot LT min 3V*: Left foot pain [employer] Other XR foot LT min 3V* Copies to: KINSEY Mancia [employer] Other XR foot LT min 3V* LEFT FOOT - 3 views [employer] Other XR foot LT min 3V* CLINICAL HISTORY: Le ft foot pain. [employer] Other XR foot LT min 3V* COMPARISON: Left tessie t series 02/09/2020 [employer] Other XR foot LT min 3V* FINDINGS: [employer] Other XR foot LT min 3V* Soft tissue swelling is noted. Since the prior study, as been interval partial amputation of the [employer] Other XR foot LT min 3V* first digit. 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 Questionable [employer] Other XR foot LT min 3V* subluxation/dislocat ion involving the PIP joint of the second digit. No definite plain film [employer] Other XR foot LT min 3V* evidence of osteomyelitis. [employer] Other XR foot LT min 3V* X R/XR foot LT min 3V* [employer] Other XR foot LT min 3V* IMPRESSION: [employer] Other XR foot LT min 3V* QUESTIONABLE SUBLUXATION/DISLOCATION INVOLVING THE PIP JOINT OF THE SECOND DIGIT. SOFT TISSUE [employer] Other XR foot LT min 3V* SWELLING. [employer] Other XR foot LT min 3V* Impression dictated by: Brennan Salgado Jr., D.OWesley02/19/2022 11:52 AM [employer] Other XR foot LT min 3V* Dictation Location: [place] [address] [employer] Other XR foot LT min 3V* Transcribed By: PWS 02/19/22 1152 [employer] Other XR foot LT min 3V* Dictated By: Brennan Salgado Jr, DO 02/19/22 1148 [employer] Other XR foot LT min 3V* Signed By: [employer] Other XR foot LT min 3V* 02/19/22 1152 [facility] [employer] Other Glucose - FINGER STICKon Glucose [Mass/Vol] 166 mg/dL [employer] Other A1C HEMOGLOBINon 11-16-2021 HbA1c (Bld) [Mass fraction] 10.7 % [employer] Other Glucose - FINGER STICKon Glucose [Mass/Vol] 205 mg/dL [employer] Other HbA1c (Bld) [Mass fraction]o n 11-16-2021 A1C HEMOGLOBIN [employer] Other Glucose - FINGER STICKon Glucose [Mass/Vol] 158 mg/dL [employer] Other BASIC METABOLIC PANELon 05-3 0 Calcium [Mass/Vol] 9.9 mg/dL Normal 8.6-10.3 [facility] Comment on above: Order Comment: No: D o not add to previous draw Performed By: #### 9 9909, 45549, 60207, 95893 #### [facility] [address] [place] [address], [place] Chloride [Moles/Vol] 93 mmol/L Low 98-107 [facility] Comment on above: Order Comment: No: D o not add to previous draw Performed By: #### 9 9909, 28122, 86578, 84705 #### [facility] [address] [place] [address], [place] CO2 [Moles/Vol] 32 mmol/L High 21-31 [facility] Comment on above: Order Comment: No: D o not add to previous draw Performed By: #### 9 9909, 88731, 18545, 42424 #### [facility] [address] [place] [address], [place] Creatinine [Mass/Vol] 1.89 mg/dL High 0.70-1.30 [facility] Comment on above: Order Comment: No: D o not add to previous draw Performed By: #### 9 9909, 31702, 31854, 27245 #### [facility] [address] [place] [address], [place] eGFR- 43 ml/min/1.73sq m Abnormal >60 [facility] Comment on above: Order Comment: No: D o not add to previous draw Performed By: #### 9 9909, 31602, 56137, 87880 #### [facility] [address] [place] [address], [place] eGFR- non- 36 ml/min/1.73sq m Abnormal >60 [facility] Comment on above: Order Comment: No: D o not add to previous draw Performed By: #### 9 9909, 94388, 18080, 92132 #### [facility] [address] [place] [place] [address], [facility] Glucose [Mass/Vol] 217 mg/dL High 70-100 [facility] Comment on above: Order Comment: No: D o not add to previous draw Performed By: #### 9 9909, 46665, 16667, 65384 #### [facility] [address] [place] [address], [facility] Potassium [Moles/Vol] 4.2 mmol/L Normal 3.5-5.1 [facility] Comment on above: Order Comment: No: D o not add to previous draw Performed By: #### 9 9909, 02568, 03327, 89945 #### [facility] [address] [place] [id number], [facility] Sodium [Moles/Vol] 135 mmol/L Low 136-145 [facility] Comment on above: Order Comment: No: D o not add to previous draw Performed By: #### 9 9909, 15395, 76577, 14444 #### [facility] [address] [place] [id number], [facility] Urea nitrogen [Mass/Vol] 53 mg/dL High 7-25 [facility] Comment on above: Order Comment: No: D o not add to previous draw Performed By: #### 9 9909, 16712, 63582, 95648 #### [facility] [address] [place] [id number], [facility] POC GLUCOSE LABon 04-17-2021 Glucose [Mass/Vol] 274 mg/dL High 70-100 [facility] Comment on above: Performed By: #### 8 5499 #### [facility] [address] [place] [id number], [facility] PROTHROMBIN TIMEon INR Coag (PPP) [Relative time] 1.76 {INR} High 0.91-1.16 [facility] Comment on above: Order Comment: No: D [...] 1995;108:231S-246S. Performed By: #### 3 5200 #### [facility] [address] PT Coag (PPP) [Time] 20.6 s High 12.3-14.8 [facility] Comment on above: Order Comment: No: D o not add to previous draw Result Comment: ALL RESULTS MUST BE INTERPRETED WITH RESPECT TO BLOOD DRAWING ARTIFACT OR DILUTION ERROR OF ANTICOAGULANT AT THE TIME OF SAMPLING. Performed By: #### 3 5200 #### [facility] [address] INR Coag (PPP) [Relative time] 1.64 {INR} High 0.91-1.16 [facility] Comment on above: Order Comment: No: D [...] 1995;108:231S-246S. Performed By: #### 3 5200 #### [facility] [address] PT Coag (PPP) [Time] 19.5 s High 12.3-14.8 [facility] Comment on above: Order Comment: No: D o not add to previous draw Result Comment: ALL RESULTS MUST BE INTERPRETED WITH RESPECT TO BLOOD DRAWING ARTIFACT OR DILUTION ERROR OF ANTICOAGULANT AT THE TIME OF SAMPLING. Performed By: #### 3 5200 #### [facility] [address] [facility] [address] BASIC METABOLIC PANELon 05-2 Calcium [Mass/Vol] 10.0 mg/dL Normal 8.6-10.3 [facility] Comment on above: Order Comment: No: D o not add to previous draw Performed By: #### 1 69, 92130 #### [facility] [address] [place] [address], [facility] Chloride [Moles/Vol] 92 mmol/L Low 98-107 [facility] Comment on above: Order Comment: No: D o not add to previous draw Performed By: #### 1 69, 90292 #### [facility] [address] [place] [address], [facility] CO2 [Moles/Vol] 35 mmol/L High 21-31 [facility] Comment on above: Order Comment: No: D o not add to previous draw Performed By: #### 1 007, 96878 #### [facility] [address] [place] [address], [place] Creatinine [Mass/Vol] 1.89 mg/dL High 0.70-1.30 [facility] Comment on above: Order Comment: No: D o not add to previous draw Performed By: #### 1 69, 48482 #### [facility] [address] [place] [address], [place] eGFR- 43 ml/min/1.73sq m Abnormal >60 [facility] Comment on above: Order Comment: No: D o not add to previous draw Performed By: #### 1 69, #### [facility] [address] [place] [address], [place] eGFR- non- 36 ml/min/1.73sq m Abnormal >60 [facility] Comment on above: Order Comment: No: D o not add to previous draw Performed By: #### 1 69, #### [facility] [address] [place] [address], [place] Glucose [Mass/Vol] 187 mg/dL High 70-100 [facility] Comment on above: Order Comment: No: D o not add to previous draw Performed By: #### 1 69, #### [facility] [address] [place] [address], [place] Potassium [Moles/Vol] 4.1 mmol/L Normal 3.5-5.1 [facility] Comment on above: Order Comment: No: D o not add to previous draw Performed By: #### 1 69, #### [facility] [address] [place] [address], [place] Sodium [Moles/Vol] 137 mmol/L Normal 136-145 [facility] Comment on above: Order Comment: No: D o not add to previous draw Performed By: #### 1 69, 91638 #### [facility] [address] [facility]. [address] Urea nitrogen [Mass/Vol] 52 mg/dL High 7-25 [facility] Comment on above: Order Comment: No: D o not add to previous draw Performed By: #### 1 0070, [id number] #### [facility] [address] [place] [address], [facility] CBC W/DIFFon 04-16-2021 ABS IMM GRANS 0.0 10*3/uL Normal 0.0-0.2 [facility] Comment on above: Order Comment: No: D o not add to previous draw Performed By: #### 3 5200 #### [facility] [address] ABS NEUTROPHILS 5.9 10*3/uL Normal 1.6-7.6 [facility] Comment on above: Order Comment: No: D o not add to previous draw Performed By: #### 3 5200 #### [facility] [address] [place] [address], [facility] Basophils (Bld) [#/Vol] 0.0 10*3/uL Normal 0.0-0.2 [facility] Comment on above: Order Comment: No: D o not add to previous draw Performed By: #### 3 5200 #### [facility] [address] [place] [address], [facility] Basophils/100 WBC (Bld) 0.3 % Normal 0.0-1.0 [facility] Comment on above: Order Comment: No: D o not add to previous draw Performed By: #### 3 5200 #### [facility] [address] [place] [address], [facility] Eosinophils (Bld) [#/Vol] 0.4 10*3/uL Normal 0.0-0.5 [facility] Comment on above: Order Comment: No: D o not add to previous draw Performed By: #### 3 5200 #### [facility] [address] [place] [address], [facility] Eosinophils/100 WBC (Bld) 4.3 % Normal 0.0-6.0 [facility] Comment on above: Order Comment: No: D o not add to previous draw Performed By: #### 3 5200 #### [facility] [address] [place] [address], [facility] Erythrocyte distribution width (RBC) [Ratio] 16.1 % High 11.5-15.0 [facility] Comment on above: Order Comment: No: D o not add to previous draw Performed By: #### 3 5200 #### [facility] [address] [place] [address], [facility] Hematocrit (Bld) [Volume fraction] 37.0 % Low 39.0-50.0 [facility] Comment on above: Order Comment: No: D o not add to previous draw Performed By: #### 3 5200 #### [facility] [address] Hemoglobin (Bld) [Mass/Vol] 11.4 g/dL Low 13.0-17.0 [facility] Comment on above: Order Comment: No: D o not add to previous draw Performed By: #### 3 5200 #### [facility] [address] [place] [address], [facility] IMMATURE GRANS 0.3 % Normal 0.0-1.0 [facility] Comment on above: Order Comment: No: D o not add to previous draw Performed By: #### 3 5200 #### [facility] [address] [place] [address], [facility] Lymphocytes (Bld) [#/Vol] 1.8 10*3/uL Normal 1.2-4.0 [facility] Comment on above: Order Comment: No: D o not add to previous draw Performed By: #### 3 5200 #### [facility] [address] [place] [address], [facility] Lymphocytes/100 WBC (Bld) 20.7 % Normal 20.0-45.0 [facility] Comment on above: Order Comment: No: D o not add to previous draw Performed By: #### 3 5200 #### [facility] [address] [place] [address], [facility] MCH (RBC) [Entitic mass] 27.1 pg Normal 27.0-33.0 [facility] Comment on above: Order Comment: No: D o not add to previous draw Performed By: #### 3 5200 #### [facility] [address] [facility] [place] [address], [facility] MCHC (RBC) [Mass/Vol] 30.8 g/dL Low 32.0-35.0 [facility] Comment on above: Order Comment: No: D o not add to previous draw Performed By: #### 3 5200 #### [facility] [address] [place] [address], [facility] MCV (RBC) [Entitic vol] 88.1 fL Normal 82.0-98.0 [facility] Comment on above: Order Comment: No: D o not add to previous draw Performed By: #### 3 5200 #### [facility] [address] [facility] [place] [address], [facility] Monocytes (Bld) [#/Vol] 0.7 10*3/uL Normal 0.1-1.0 [facility] Comment on above: Order Comment: No: D o not add to previous draw Performed By: #### 3 5200 #### [facility] [address] [facility] [place] [place] [id number], [facility] MONOS 7.9 % Normal 5.0-12.0 [facility] Comment on above: Order Comment: No: D o not add to previous draw Performed By: #### 3 5200 #### [facility] [address] [place] [address], [facility] Neutrophils/100 WBC (Bld) 66.5 % Normal 40.0-72.0 [facility] Comment on above: Order Comment: No: D o not add to previous draw Performed By: #### 3 5200 #### [facility] [address] [place] [address], [place] Nucleated RBC/100 WBC (Bld) [Ratio] 0 % Normal 0-0 [facility] Comment on above: Order Comment: No: D o not add to previous draw Performed By: #### 3 5200 #### [facility] [address] [place] [id number], [place] PLAT CNT 189 10*3/uL Normal 150-400 [facility] Comment on above: Order Comment: No: D o not add to previous draw Performed By: #### 3 5200 #### [facility] [address] [place] [address], [facility] RBC (Bld) [#/Vol] 4.20 10*6/uL Normal 4.20-5.70 [facility] Comment on above: Order Comment: No: D o not add to previous draw Performed By: #### 3 5200 #### [facility] [address] [place] [id number], [place] WBC (Bld) [#/Vol] 8.82 10*3/uL Normal 4.00-10.60 [facility] Comment on above: Order Comment: No: D o not add to previous draw Performed By: #### 3 5200 #### [facility] [address] [place] [id number], [facility] HEMOGLOBIN A1Con 04-16-2021 Glucose [Moles/Vol] 180 mmol/L Normal [facility] Comment on above: Order Comment: Yes: Add to Previous draw if able Performed By: #### 8 5499 #### [facility] [address] [place] [address], [facility] HbA1c (Bld) [Mass fraction] 7.9 % High 4.0-6.0 [facility] Comment on above: Order Comment: Yes: Add to Previous draw if able Performed By: #### 8 5499 #### [facility] [address] [place] [address], [facility] MAGNESIUM BLOODon 04-16-2021 Magnesium [Mass/Vol] 2.3 mg/dL Normal 1.9-2.7 [facility] Comment on above: Order Comment: No: D o not add to previous draw Performed By: #### 1 0070, 95554 #### [facility] [address] [place] [address], [facility] POC GLUCOSE LABon 04-16-2021 Glucose [Mass/Vol] 357 mg/dL High 70-100 [facility] Comment on above: Performed By: #### 8 5499 #### [facility] [address] [place] [address], [facility] Glucose [Mass/Vol] 149 mg/dL High 70-100 [facility] Comment on above: Performed By: #### 9 9909, 56922, 50548, 51565 #### [facility] [address] [place] [address], [place] Glucose [Mass/Vol] 243 mg/dL High 70-100 [facility] Comment on above: Performed By: #### 8 5499 #### [facility] [address] [place] [address], [facility] Glucose [Mass/Vol] 181 mg/dL High 70-100 [facility] Comment on above: Performed By: #### 9 9909, 53483, 35255, 41331 #### [facility] [address] [place] [address], [place] PROTHROMBIN TIMEon INR Coag (PPP) [Relative time] 1.63 {INR} High 0.91-1.16 [facility] Comment on above: Order Comment: No: D o not add to previous draw Result Comment: [facility] P RECOMMENDED INR FOR WARFARIN THERAPY -------- [...] 1995;108:231S-246S. Performed By: #### 3 5200 #### [facility] [address] [facility]. [address] PT Coag (PPP) [Time] 19.4 s High 12.3-14.8 [facility] Comment on above: Order Comment: No: D o not add to previous draw Result Comment: ALL RESULTS MUST BE INTERPRETED WITH RESPECT TO BLOOD DRAWING ARTIFACT OR DILUTION ERROR OF ANTICOAGULANT AT THE TIME OF SAMPLING. Performed By: #### 3 5200 #### [facility] [address] [facility] [place] [address], [facility] INR Coag (PPP) [Relative time] 1.66 {INR} High 0.91-1.16 [facility] Comment on above: Order Comment: No: D o not add to previous draw Result Comment: [facility] P RECOMMENDED INR FOR WARFARIN THERAPY -------- [...] 1995;108:231S-246S. Performed By: #### 3 5200 #### [facility] [address] PT Coag (PPP) [Time] 19.7 s High 12.3-14.8 [facility] Comment on above: Order Comment: No: D o not add to previous draw Result Comment: ALL RESULTS MUST BE INTERPRETED WITH RESPECT TO BLOOD DRAWING ARTIFACT OR DILUTION ERROR OF ANTICOAGULANT AT THE TIME OF SAMPLING. Performed By: #### 3 5200 #### [facility] [address] BASIC METABOLIC PANELon 05-2 Calcium [Mass/Vol] 9.7 mg/dL Normal 8.6-10.3 [facility] Comment on above: Order Comment: No: D o not add to previous draw Performed By: #### 9 9909, 25485, 20786, 88774 #### [facility] [address] [place] [address], [facility] Chloride [Moles/Vol] 92 mmol/L Low 98-107 [facility] Comment on above: Order Comment: No: D o not add to previous draw Performed By: #### 9 9909, 33211, 62209, 80537 #### [facility] [address] [facility] [place] [address], [facility] CO2 [Moles/Vol] 36 mmol/L High 21-31 [facility] Comment on above: Order Comment: No: D o not add to previous draw Performed By: #### 9 9909, 95851, 53326, 09279 #### [facility] [address] [place] [address], [facility] Creatinine [Mass/Vol] 1.86 mg/dL High 0.70-1.30 [facility] Comment on above: Order Comment: No: D o not add to previous draw Performed By: #### 9 9909, 21101, 85275, 18954 #### [facility] [address] [place] [address], [facility] eGFR- 44 ml/min/1.73sq m Abnormal >60 [facility] Comment on above: Order Comment: No: D o not add to previous draw Performed By: #### 9 9909, 02451, 54320, 28307 #### [facility] [address] [place] [address], [facility] eGFR- non- 37 ml/min/1.73sq m Abnormal >60 [facility] Comment on above: Order Comment: No: D o not add to previous draw Performed By: #### 9 9909, 17249, 61792, 06057 #### [facility] [address] [place] [address], [facility] Glucose [Mass/Vol] 167 mg/dL High 70-100 [facility] Comment on above: Order Comment: No: D o not add to previous draw Performed By: #### 9 9909, 83127, 39577, 01343 #### [facility] [address] [place] [address], [place] Potassium [Moles/Vol] 4.0 mmol/L Normal 3.5-5.1 [facility] Comment on above: Order Comment: No: D o not add to previous draw Performed By: #### 9 9909, 29598, 77746, 06972 #### [facility] [address] Sodium [Moles/Vol] 138 mmol/L Normal 136-145 [facility] Comment on above: Order Comment: No: D o not add to previous draw Performed By: #### 9 9909, 47516, 19656, 34261 #### [facility] [address] Urea nitrogen [Mass/Vol] 44 mg/dL High 7-25 [facility] Comment on above: Order Comment: No: D o not add to previous draw Performed By: #### 9 9909, 83618, 25330, 42035 #### [facility] [address] [place] [address], [facility] CBC W/DIFFon 04-15-2021 ABS IMM GRANS 0.0 10*3/uL Normal 0.0-0.2 [facility] Comment on above: Order Comment: No: D o not add to previous draw Performed By: #### 3 5200 #### [facility] [address] ABS NEUTROPHILS 6.3 10*3/uL Normal 1.6-7.6 [facility] Comment on above: Order Comment: No: D o not add to previous draw Performed By: #### 3 5200 #### [facility] [address] [place] [address], [facility] Basophils (Bld) [#/Vol] 0.0 10*3/uL Normal 0.0-0.2 [facility] Comment on above: Order Comment: No: D o not add to previous draw Performed By: #### 3 5200 #### [facility] [address] [place] [address], [facility] Basophils/100 WBC (Bld) 0.3 % Normal 0.0-1.0 [facility] Comment on above: Order Comment: No: D o not add to previous draw Performed By: #### 3 5200 #### [facility] [address] [place] [address], [facility] Eosinophils (Bld) [#/Vol] 0.4 10*3/uL Normal 0.0-0.5 [facility] Comment on above: Order Comment: No: D o not add to previous draw Performed By: #### 3 5200 #### [facility] [address] [place] [address], [facility] Eosinophils/100 WBC (Bld) 4.5 % Normal 0.0-6.0 [facility] Comment on above: Order Comment: No: D o not add to previous draw Performed By: #### 3 5200 #### [facility] [address] [place] [address], [facility] Erythrocyte distribution width (RBC) [Ratio] 16.3 % High 11.5-15.0 [facility] Comment on above: Order Comment: No: D o not add to previous draw Performed By: #### 3 5200 #### [facility] [address] [place] [address], [facility] Hematocrit (Bld) [Volume fraction] 37.4 % Low 39.0-50.0 [facility] Comment on above: Order Comment: No: D o not add to previous draw Performed By: #### 3 5200 #### [facility] [address] [place] [address], [facility] Hemoglobin (Bld) [Mass/Vol] 11.4 g/dL Low 13.0-17.0 [facility] Comment on above: Order Comment: No: D o not add to previous draw Performed By: #### 3 5200 #### [facility] [address] [place] [address], [facility] IMMATURE GRANS 0.3 % Normal 0.0-1.0 [facility] Comment on above: Order Comment: No: D o not add to previous draw Performed By: #### 3 5200 #### [facility] [address] [facility] [place] [address], [facility] Lymphocytes (Bld) [#/Vol] 1.8 10*3/uL Normal 1.2-4.0 [facility] Comment on above: Order Comment: No: D o not add to previous draw Performed By: #### 3 5200 #### [facility] [address] [place] [id number], [facility] Lymphocytes/100 WBC (Bld) 19.1 % Low 20.0-45.0 [facility] Comment on above: Order Comment: No: D o not add to previous draw Performed By: #### 3 5200 #### [facility] [address] [facility] [place] [address], [facility] MCH (RBC) [Entitic mass] 27.2 pg Normal 27.0-33.0 [facility] Comment on above: Order Comment: No: D o not add to previous draw Performed By: #### 3 5200 #### [facility] [address] [place] [id number], [facility] MCHC (RBC) [Mass/Vol] 30.5 g/dL Low 32.0-35.0 [facility] Comment on above: Order Comment: No: D o not add to previous draw Performed By: #### 3 5200 #### [facility] [address] [place] [address], [facility] MCV (RBC) [Entitic vol] 89.3 fL Normal 82.0-98.0 [facility] Comment on above: Order Comment: No: D o not add to previous draw Performed By: #### 3 5200 #### [facility] [address] [facility] [place] [id number], [facility] Monocytes (Bld) [#/Vol] 0.7 10*3/uL Normal 0.1-1.0 [facility] Comment on above: Order Comment: No: D o not add to previous draw Performed By: #### 3 5200 #### [facility] [address] [place] [address], [place] MONOS 7.4 % Normal 5.0-12.0 [facility] Comment on above: Order Comment: No: D o not add to previous draw Performed By: #### 3 5200 #### [facility] [address] [place] [address], [place] Neutrophils/100 WBC (Bld) 68.4 % Normal 40.0-72.0 [facility] Comment on above: Order Comment: No: D o not add to previous draw Performed By: #### 3 5200 #### [facility] [address] [place] [address], [place] Nucleated RBC/100 WBC (Bld) [Ratio] 0 % Normal 0-0 [facility] Comment on above: Order Comment: No: D o not add to previous draw Performed By: #### 3 5200 #### [facility] [address] [place] [address], [place] PLAT CNT 177 10*3/uL Normal 150-400 [facility] Comment on above: Order Comment: No: D o not add to previous draw Performed By: #### 3 5200 #### [facility] [address] [place] [address], [place] RBC (Bld) [#/Vol] 4.19 10*6/uL Low 4.20-5.70 [facility] Comment on above: Order Comment: No: D o not add to previous draw Performed By: #### 3 5200 #### [facility] [address] [place] [address], [place] WBC (Bld) [#/Vol] 9.21 10*3/uL Normal 4.00-10.60 [facility] Comment on above: Order Comment: No: D o not add to previous draw Performed By: #### 3 5200 #### [facility] [address] [place] [address], [place] MAGNESIUM BLOODon 05-28-2021 Magnesium [Mass/Vol] 2.3 mg/dL Normal 1.9-2.7 [facility] Comment on above: Order Comment: No: D o not add to previous draw Performed By: #### 9 9909, 26306, 26610, 88496 #### [facility] [address] [place] [address], [place] POC GLUCOSE LABon 04-15-2021 Glucose [Mass/Vol] 230 mg/dL High 70-100 [facility] Comment on above: Performed By: #### 8 5499 #### [facility] [address] [place] [address], [place] Glucose [Mass/Vol] 260 mg/dL High 70-100 [facility] Comment on above: Performed By: #### 8 5499 #### [facility] [address] [place] [address], [place] Glucose [Mass/Vol] 273 mg/dL High 70-100 [facility] Comment on above: Performed By: #### 9 9909, 35410, 19768, 45671 #### [facility] [address] [place] [address], [place] Glucose [Mass/Vol] 168 mg/dL High 70-100 [facility] Comment on above: Performed By: #### 8 5499 #### [facility] [address] [place] [address], [place] PROTHROMBIN TIMEon INR Coag (PPP) [Relative time] 1.77 {INR} High 0.91-1.16 [facility] Comment on above: Order Comment: No: D [...] 1995;108:231S-246S. Performed By: #### 3 5200 #### [facility] [address] PT Coag (PPP) [Time] 20.7 s High 12.3-14.8 [facility] Comment on above: Order Comment: No: D o not add to previous draw Result Comment: ALL RESULTS MUST BE INTERPRETED WITH RESPECT TO BLOOD DRAWING ARTIFACT OR DILUTION ERROR OF ANTICOAGULANT AT THE TIME OF SAMPLING. Performed By: #### 3 5200 #### [facility] [address] [facility]. [address] INR Coag (PPP) [Relative time] 1.80 {INR} High 0.91-1.16 [facility] Comment on above: Order Comment: Unkno wn [...] 1995;108:231S-246S. Performed By: #### 8 5499 #### [facility] [address] [place] [address], [facility] PT Coag (PPP) [Time] 21.0 s High 12.3-14.8 [facility] Comment on above: Order Comment: Unkno wn Result Comment: ALL RESULTS MUST BE INTERPRETED WITH RESPECT TO BLOOD DRAWING ARTIFACT OR DILUTION ERROR OF ANTICOAGULANT AT THE TIME OF SAMPLING. Performed By: #### 8 5499 #### [facility] [address] BASIC METABOLIC PANELon 05-2 Calcium [Mass/Vol] 9.4 mg/dL Normal 8.6-10.3 [facility] Comment on above: Order Comment: No: D o not add to previous draw Performed By: #### 8 5499 #### [facility] [address] [place] [address], [facility] Chloride [Moles/Vol] 95 mmol/L Low 98-107 [facility] Comment on above: Order Comment: No: D o not add to previous draw Performed By: #### 8 5499 #### [facility] [address] [place] [address], [facility] CO2 [Moles/Vol] 35 mmol/L High 21-31 [facility] Comment on above: Order Comment: No: D o not add to previous draw Performed By: #### 8 5499 #### [facility] [address] [place] [address], [facility] Creatinine [Mass/Vol] 1.77 mg/dL High 0.70-1.30 [facility] Comment on above: Order Comment: No: D o not add to previous draw Performed By: #### 8 5499 #### [facility] [address] [place] [address], [place] eGFR- 47 ml/min/1.73sq m Abnormal >60 [facility] Comment on above: Order Comment: No: D o not add to previous draw Performed By: #### 8 5499 #### [facility] [address] [place] [address], [place] eGFR- non- 39 ml/min/1.73sq m Abnormal >60 [facility] Comment on above: Order Comment: No: D o not add to previous draw Performed By: #### 8 5499 #### [facility] [address] [place] [address], [place] Glucose [Mass/Vol] 135 mg/dL High 70-100 [facility] Comment on above: Order Comment: No: D o not add to previous draw Performed By: #### 8 5499 #### [facility] [address] [place] [address], [place] Potassium [Moles/Vol] 3.7 mmol/L Normal 3.5-5.1 [facility] Comment on above: Order Comment: No: D o not add to previous draw Performed By: #### 8 5499 #### [facility] [address] [place] [address], [place] Sodium [Moles/Vol] 140 mmol/L Normal 136-145 [facility] Comment on above: Order Comment: No: D o not add to previous draw Performed By: #### 8 5499 #### [facility] [address] [place] [address], [place] Urea nitrogen [Mass/Vol] 43 mg/dL High 7-25 [facility] [facility] Comment on above: Order Comment: No: D o not add to previous draw Performed By: #### 8 [id number] #### [facility] [address] [place] [address], [place] CBC W/DIFFon 04-14-2021 ABS IMM GRANS 0.0 10*3/uL Normal 0.0-0.2 [facility] Comment on above: Order Comment: No: D o not add to previous draw Performed By: #### 8 [id number] #### [facility] [address] [place] [address], [facility] ABS NEUTROPHILS 6.4 10*3/uL Normal 1.6-7.6 [facility] Comment on above: Order Comment: No: D o not add to previous draw Performed By: #### 8 [id number] #### [facility] [address] [facility] [place] [address], [facility] Basophils (Bld) [#/Vol] 0.0 10*3/uL Normal 0.0-0.2 [facility] Comment on above: Order Comment: No: D o not add to previous draw Performed By: #### 8 [id number] #### [facility] [address] [place] [address], [facility] Basophils/100 WBC (Bld) 0.3 % Normal 0.0-1.0 [facility] Comment on above: Order Comment: No: D o not add to previous draw Performed By: #### 8 [id number] #### [facility] [address] [facility] [place] [address], [facility] Eosinophils (Bld) [#/Vol] 0.4 10*3/uL Normal 0.0-0.5 [facility] Comment on above: Order Comment: No: D o not add to previous draw Performed By: #### 8 [id number] #### [facility] [address] [place] [address], [place] Eosinophils/100 WBC (Bld) 4.0 % Normal 0.0-6.0 [facility] Comment on above: Order Comment: No: D o not add to previous draw Performed By: #### 8 [id number] #### [facility] [address] [facility] [place] [address] Erythrocyte distribution width (RBC) [Ratio] 16.6 % High 11.5-15.0 [facility] Comment on above: Order Comment: No: D o not add to previous draw Performed By: #### 8 [id number] #### [facility] [address] [place] [address], [facility] Hematocrit (Bld) [Volume fraction] 35.5 % Low 39.0-50.0 [facility] Comment on above: Order Comment: No: D o not add to previous draw Performed By: #### 8 [id number] #### [facility] [address] Hemoglobin (Bld) [Mass/Vol] 10.9 g/dL Low 13.0-17.0 [facility] Comment on above: Order Comment: No: D o not add to previous draw Performed By: #### 8 [id number] #### [facility] [address] [place] [address], [facility] IMMATURE GRANS 0.3 % Normal 0.0-1.0 [facility] Comment on above: Order Comment: No: D o not add to previous draw Performed By: #### 8 [id number] #### [facility] [address] [place] [address], [facility] Lymphocytes (Bld) [#/Vol] 1.6 10*3/uL Normal 1.2-4.0 [facility] Comment on above: Order Comment: No: D o not add to previous draw Performed By: #### 8 [id number] #### [facility] [address] [place] [address], [facility] Lymphocytes/100 WBC (Bld) 17.3 % Low 20.0-45.0 [facility] Comment on above: Order Comment: No: D o not add to previous draw Performed By: #### 8 [id number] #### [facility] [address] [facility] [address], [facility] MCH (RBC) [Entitic mass] 27.0 pg Normal 27.0-33.0 [facility] Comment on above: Order Comment: No: D o not add to previous draw Performed By: #### 8 [id number] #### [facility] [address] [place] [id number], [facility] MCHC (RBC) [Mass/Vol] 30.7 g/dL Low 32.0-35.0 [facility] Comment on above: Order Comment: No: D o not add to previous draw Performed By: #### 8 [id number] #### [facility] [address] [place] [id number], [facility] MCV (RBC) [Entitic vol] 88.1 fL Normal 82.0-98.0 [facility] Comment on above: Order Comment: No: D o not add to previous draw Performed By: #### 8 [id number] #### [facility] [address] [place] [id number], [facility] Monocytes (Bld) [#/Vol] 0.7 10*3/uL Normal 0.1-1.0 [facility] Comment on above: Order Comment: No: D o not add to previous draw Performed By: #### 8 [id number] #### [facility] [address] [place] [id number], [facility] MONOS 7.6 % Normal 5.0-12.0 [facility] Comment on above: Order Comment: No: D o not add to previous draw Performed By: #### 8 [id number] #### [facility] [address] [place] [id number], [facility] Neutrophils/100 WBC (Bld) 70.5 % Normal 40.0-72.0 [facility] Comment on above: Order Comment: No: D o not add to previous draw Performed By: #### 8 [id number] #### [facility] [address] [place] [id number], [facility] Nucleated RBC/100 WBC (Bld) [Ratio] 0 % Normal 0-0 [facility] Comment on above: Order Comment: No: D o not add to previous draw Performed By: #### 8 [id number] #### [facility] [address] [place] [address], [facility] PLAT CNT 157 10*3/uL Normal 150-400 [facility] Comment on above: Order Comment: No: D o not add to previous draw Performed By: #### 8 [id number] #### [facility] [address] [place] [address], [facility] RBC (Bld) [#/Vol] 4.03 10*6/uL Low 4.20-5.70 [facility] Comment on above: Order Comment: No: D o not add to previous draw Performed By: #### 8 [id number] #### [facility] [address] [place] [address], [facility] WBC (Bld) [#/Vol] 9.10 10*3/uL Normal 4.00-10.60 [facility] Comment on above: Order Comment: No: D o not add to previous draw Performed By: #### 8 [id number] #### [facility] [address] [place] [address], [facility] DIGOXINon 04-14-2021 Digoxin [Mass/Vol] 1.0 ng/mL Normal 0.7-2.0 [facility] Comment on above: Order Comment: Yes: Add to Previous draw if able Performed By: #### 8 [id number] #### [facility] [address] [place] [id number], [facility] MAGNESIUM BLOODon 04-14-2021 Magnesium [Mass/Vol] 2.2 mg/dL Normal 1.9-2.7 [facility] Comment on above: Order Comment: No: D o not add to previous draw Performed By: #### 8 [id number] #### [facility] [address] [place], [place] [address] POC GLUCOSE LABon 04-14-2021 Glucose [Mass/Vol] 194 mg/dL High 70-100 The [facility] Comment on above: Performed By: #### 8 [id number] #### [facility] [address] [place] [address], [facility] Glucose [Mass/Vol] 188 mg/dL High 70-100 [facility] Comment on above: Performed By: #### 9 9909, 90273, 76744, 39073 #### [facility] [address] [place] [address], [facility] Glucose [Mass/Vol] 130 mg/dL High 70-100 [facility] Comment on above: Performed By: #### 9 9909, 68338, 05714, 73600 #### [facility] [address] [facility] [address] PROTHROMBIN TIMEon INR Coag (PPP) [Relative time] 1.92 {INR} High 0.91-1.16 [facility] Comment on above: Order Comment: No: D [...] CHEST 1995;108:231S-246S. Performed By: #### 9 9909, 86774, 79728, 30753 #### [facility] [address] [place] [address], [place] PT Coag (PPP) [Time] 22.1 s High 12.3-14.8 [facility] Comment on above: Order Comment: No: D o not add to previous draw Result Comment: ALL RESULTS MUST BE INTERPRETED WITH RESPECT TO BLOOD DRAWING ARTIFACT OR DILUTION ERROR OF ANTICOAGULANT AT THE TIME OF SAMPLING. Performed By: #### 9 9909, 87542, 71606, 43613 #### [facility] [address] [place] [address], [place] INR Coag (PPP) [Relative time] 1.83 {INR} High 0.91-1.16 [facility] Comment on above: Order Comment: No: D [...] 1995;108:231S-246S. Performed By: #### 3 5200 #### [facility] [address] [place] [address], [place] PT Coag (PPP) [Time] 21.2 s High 12.3-14.8 [facility] Comment on above: Order Comment: No: D o not add to previous draw Result Comment: ALL RESULTS MUST BE INTERPRETED WITH RESPECT TO BLOOD DRAWING ARTIFACT OR DILUTION ERROR OF ANTICOAGULANT AT THE TIME OF SAMPLING. Performed By: #### 3 5200 #### [facility] [address] [place] [address], [facility] BASIC METABOLIC PANELon 05-2 Calcium [Mass/Vol] 8.5 mg/dL Low 8.6-10.3 [facility] Comment on above: Order Comment: No: D o not add to previous draw Performed By: #### 9 9909, 22262, 42615, 39843 #### [facility] [address] [place] [address], [place] Chloride [Moles/Vol] 98 mmol/L Normal 98-107 [facility] Comment on above: Order Comment: No: D o not add to previous draw Performed By: #### 9 9909, 35870, 39123, 34208 #### [facility] [address] [place] [address], [place] CO2 [Moles/Vol] 32 mmol/L High 21-31 [facility] Comment on above: Order Comment: No: D o not add to previous draw Performed By: #### 9 9909, 74151, 23427, 13879 #### [facility] [address] [place] [address], [place] Creatinine [Mass/Vol] 1.77 mg/dL High 0.70-1.30 [facility] Comment on above: Order Comment: No: D o not add to previous draw Performed By: #### 9 9909, 22043, 47053, 42620 #### [facility] [address] [place] [address], [place] eGFR- 47 ml/min/1.73sq m Abnormal >60 [facility] Comment on above: Order Comment: No: D o not add to previous draw Performed By: #### 9 9909, 62791, 27171, 78172 #### [facility] [address] [place] [address], [facility] eGFR- non- 39 ml/min/1.73sq m Abnormal >60 [facility] Comment on above: Order Comment: No: D o not add to previous draw Performed By: #### 9 9909, 55229, 63265, 70902 #### [facility] [address] [place] [address], [place] Glucose [Mass/Vol] 129 mg/dL High 70-100 [facility] Comment on above: Order Comment: No: D o not add to previous draw Performed By: #### 9 9909, 16796, 11470, 92014 #### [facility] [address] [place] [address], [facility] Potassium [Moles/Vol] 3.8 mmol/L Normal 3.5-5.1 [facility] Comment on above: Order Comment: No: D o not add to previous draw Performed By: #### 9 9909, 47503, 49773, 86491 #### [facility] [address] [place] [address], [facility] Sodium [Moles/Vol] 138 mmol/L Normal 136-145 [facility] Comment on above: Order Comment: No: D o not add to previous draw Performed By: #### 9 9909, 14729, 48638, 53014 #### [facility] [address] [place] [address], [place] Urea nitrogen [Mass/Vol] 39 mg/dL High 7-25 [facility] Comment on above: Order Comment: No: D o not add to previous draw Performed By: #### 9 9909, 75348, 68434, 52721 #### [facility] [address] [place] [address], [place] CBC COMPLETE BLOOD COUNTon 0 04-13-2021 Erythrocyte distribution width (RBC) [Ratio] 16.8 % High 11.5-15.0 [facility] Comment on above: Order Comment: No: D o not add to previous draw Performed By: #### 8 [id number] #### [facility] [address] [place] [address], [facility] Hematocrit (Bld) [Volume fraction] 33.7 % Low 39.0-50.0 [facility] Comment on above: Order Comment: No: D o not add to previous draw Performed By: #### 8 [id number] #### [facility] [address] [place] [address], [facility] Hemoglobin (Bld) [Mass/Vol] 10.2 g/dL Low 13.0-17.0 [facility] Comment on above: Order Comment: No: D o not add to previous draw Performed By: #### 8 [id number] #### [facility] [address] [place] [address], [facility] MCH (RBC) [Entitic mass] 27.1 pg Normal 27.0-33.0 [facility] Comment on above: Order Comment: No: D o not add to previous draw Performed By: #### 8 [id number] #### [facility] [address] [place] [address], [facility] MCHC (RBC) [Mass/Vol] 30.3 g/dL Low 32.0-35.0 [facility] Comment on above: Order Comment: No: D o not add to previous draw Performed By: #### 8 [id number] #### [facility] [address] [place] [address], [facility] MCV (RBC) [Entitic vol] 89.6 fL Normal 82.0-98.0 [facility] Comment on above: Order Comment: No: D o not add to previous draw Performed By: #### 8 [id number] #### [facility] [address] [place] [address], [facility] Nucleated RBC/100 WBC (Bld) [Ratio] 0 % Normal 0-0 [facility] Comment on above: Order Comment: No: D o not add to previous draw Performed By: #### 8 [id number] #### [facility] [address] [place] [address], [place] PLAT CNT 131 10*3/uL Low 150-400 [facility] Comment on above: Order Comment: No: D o not add to previous draw Performed By: #### 8 [id number] #### [facility] [address] [place] [address], [place] RBC (Bld) [#/Vol] 3.76 10*6/uL Low 4.20-5.70 [facility] Comment on above: Order Comment: No: D o not add to previous draw Performed By: #### 8 [id number] #### [facility] [address] [place] [address], [place] WBC (Bld) [#/Vol] 11.41 10*3/uL High 4.00-10.60 [facility] Comment on above: Order Comment: No: D o not add to previous draw Performed By: #### 8 [id number] #### [facility] [address] [place] [address], [facility] MAGNESIUM BLOODon 04-13-2021 Magnesium [Mass/Vol] 2.3 mg/dL Normal 1.9-2.7 [facility] Comment on above: Order Comment: No: D o not add to previous draw Performed By: #### 9 9909, 82613, 76235, 39662 #### [facility] [address] [place] [address], [place] POC GLUCOSE LABon 04-13-2021 Glucose [Mass/Vol] 210 mg/dL High 70-100 The [facility] Comment on above: Performed By: #### 8 [id number] #### [facility] [address] [place] [address], [place] Glucose [Mass/Vol] 90 mg/dL Normal 70-100 The [facility] Comment on above: Performed By: #### 9 9909, 22287, 47815, 17379 #### [facility] [address] [place] [address], [facility] Glucose [Mass/Vol] 104 mg/dL High 70-100 The [facility] Comment on above: Performed By: #### 8 [id number] #### [facility] [address] [place] [address], [facility] Glucose [Mass/Vol] 77 mg/dL Normal 70-100 The [facility] Comment on above: Performed By: #### 9 9909, 19565, 36317, 98750 #### [facility] [address] [place] [address], [facility] Glucose [Mass/Vol] 113 mg/dL High 70-100 [facility] Comment on above: Performed By: #### 9 9909, 09412, 95666, 07710 #### [facility] [address] [facility] [place] [address], [facility] PROTHROMBIN TIMEon 1 INR Coag (PPP) [Relative time] 2.19 {INR} High 0.91-1.16 [facility] Comment on above: Order Comment: No: D [...] 1995;108:231S-246S. Performed By: #### 3 5200 #### [address] PT Coag (PPP) [Time] 24.5 s High 12.3-14.8 [facility] Comment on above: Order Comment: No: D o not add to previous draw Result Comment: ALL RESULTS MUST BE INTERPRETED WITH RESPECT TO BLOOD DRAWING ARTIFACT OR DILUTION ERROR OF ANTICOAGULANT AT THE TIME OF SAMPLING. Performed By: #### 3 5200 #### [address] TROPONIN-Ion 04-13-2021 Troponin I.cardiac [Mass/Vol] 0.05 ng/mL High 0.00-0.04 [facility] Comment on above: Order Comment: No: D o not add to previous draw Result Comment: REFE RENCE RANGES: 0.00 - 0.04 ng/ml NORMAL 0.05 - 0.50 ng/ml INDETERMINATE > 0.50 ng/ml CONSISTENT WITH AN M.I. Performed By: #### 3 5200 #### [address] US ABDOMEN LIMITED FOR ASCIT ESon 04-13-2021 US ABDOMEN LIMITED FOR ASCITES [facility] Department of Radiology [address] [place] [id number] Patient Name: ADWOA PORTER : 1955 Sex: M Age: Race: White Pt. Location: [address] [place] [address] Patient Status: I Ordered Date: 04/13/2021 3:45:00 [...] reports Electronically signed: Shannon Weathers. Transcribed by: [email or web address], User Resident: BIANCA NICOLE Electronically Signed by: SHANNON WEATHERS @ 04/13/2021 04:07 PM I personally read this/these film(s) with this resident Normal [facility] Comment on above: Order Comment: No: D o not add to previous draw *BLOOD CULTUREon 04-12-2021 *BLOOD CULTURE Clinical Report: (D) Specimen: BLOOD CULTURE Collected: 04/12/2021 20:24 Status: Final Last Updated: 04/18/2021 07:10 (1) Right AC 2018 CULT RES (Final) No Growth Day 5 Normal [facility] Comment on above: Order Comment: Right AC 2018 Performed By: #### 8 [id number] #### [place] [address] [place] [address], [facility] *BLOOD CULTURE Clinical Report: (D) Specimen: BLOOD CULTURE Collected: 04/12/2021 20:24 Status: Final Last Updated: 04/18/2021 07:10 (1) Left AC 2021 CULT RES (Final) No Growth Day 5 Normal [facility] Comment on above: Order Comment: Left AC 2021 Performed By: #### 8 [id number] #### [facility] [address] BNP (B-TYPE NATRIURETIC PEPT JJ)on 04-12-2021 Natriuretic peptide B (Bld) [Mass/Vol] 502 pg/mL High 0-100 The [facility] Comment on above: Order Comment: No: D o not add to previous draw Result Comment: Give n the appropriate clinical setting a BNP result of >100 pg/mL indicates congestive heart failure. Performed By: #### 9 9909, 34058, 00607, 91812 #### [facility] [address] CBC W/DIFFon 04-12-2021 ABS IMM GRANS 0.1 10*3/uL Normal 0.0-0.2 [facility] Comment on above: Performed By: #### 8 [id number] #### [facility] [address] ABS NEUTROPHILS 10.5 10*3/uL High 1.6-7.6 [facility] Comment on above: Performed By: #### 8 5499 #### [facility] [address] Basophils (Bld) [#/Vol] 0.0 10*3/uL Normal 0.0-0.2 [facility] Comment on above: Performed By: #### 8 [id number] #### [facility] [address] Basophils/100 WBC (Bld) 0.2 % Normal 0.0-1.0 [facility] Comment on above: Performed By: #### 8 5499 #### [facility] [address] Eosinophils (Bld) [#/Vol] 0.3 10*3/uL Normal 0.0-0.5 [facility] Comment on above: Performed By: #### 8 [id number] #### [facility] [address] [facility] [place] [place] [address], [facility] Eosinophils/100 WBC (Bld) 2.1 % Normal 0.0-6.0 [facility] Comment on above: Performed By: #### 8 [id number] #### [facility] [address] [facility]. [address] Erythrocyte distribution width (RBC) [Ratio] 17.1 % High 11.5-15.0 [facility] Comment on above: Performed By: #### 8 [id number] #### [facility] [address] [facility]. [address] Hematocrit (Bld) [Volume fraction] 34.8 % Low 39.0-50.0 [facility] Comment on above: Performed By: #### 8 [id number] #### [facility] [address] [facility]. [address] Hemoglobin (Bld) [Mass/Vol] 10.6 g/dL Low 13.0-17.0 [facility] Comment on above: Performed By: #### 8 [id number] #### [facility] [address] [place] [address], [facility] IMMATURE GRANS 0.4 % Normal 0.0-1.0 [facility] Comment on above: Performed By: #### 8 5499 #### [facility] [address] [place] [address], [facility] Lymphocytes (Bld) [#/Vol] 1.4 10*3/uL Normal 1.2-4.0 [facility] Comment on above: Performed By: #### 8 [id number] #### [facility] [address] [place] [address], [facility] Lymphocytes/100 WBC (Bld) 10.5 % Low 20.0-45.0 [facility] Comment on above: Performed By: #### 8 [id number] #### [facility] [address] [place] [address], [facility] MCH (RBC) [Entitic mass] 27.3 pg Normal 27.0-33.0 [facility] Comment on above: Performed By: #### 8 [id number] #### [facility] [address] [facility] [place] [address], [facility] MCHC (RBC) [Mass/Vol] 30.5 g/dL Low 32.0-35.0 [facility] Comment on above: Performed By: #### 8 [id number] #### [facility] [address] [place] [address], [facility] MCV (RBC) [Entitic vol] 89.7 fL Normal 82.0-98.0 [facility] Comment on above: Performed By: #### 8 [id number] #### [facility] [address] [place] [address], [facility] Monocytes (Bld) [#/Vol] 0.8 10*3/uL Normal 0.1-1.0 [facility] Comment on above: Performed By: #### 8 [id number] #### [facility] [address] MONOS 6.4 % Normal 5.0-12.0 [facility] Comment on above: Performed By: #### 8 [id number] #### [facility] [address] [facility]. [address] Neutrophils/100 WBC (Bld) 80.4 % High 40.0-72.0 [facility] Comment on above: Performed By: #### 8 [id number] #### [facility] [address] [place] [address], [facility] Nucleated RBC/100 WBC (Bld) [Ratio] 0 % Normal 0-0 [facility] Comment on above: Performed By: #### 8 [id number] #### [facility] [address] [place] [address], [facility] PLAT CNT 138 10*3/uL Low 150-400 [facility] Comment on above: Performed By: #### 8 [id number] #### [facility] [address] [place] [place] [id number], [facility] RBC (Bld) [#/Vol] 3.88 10*6/uL Low 4.20-5.70 [facility] Comment on above: Performed By: #### 8 [id number] #### [facility] [address] [place] [address], [facility] WBC (Bld) [#/Vol] 13.05 10*3/uL High 4.00-10.60 [facility] Comment on above: Performed By: #### 8 [id number] #### [facility] [address] [facility] [place] [id number], [facility] LIVER BATTERYon 04-12-2021 Albumin [Mass/Vol] 3.8 g/dL Normal 3.5-5.7 [facility] Comment on above: Order Comment: No: D o not add to previous draw Performed By: #### 9 [id number], 86269, 06774, 94766 #### [facility] [address] [facility] [place] [address], [facility] ALKALINE PHOSPH 80 IU/L Normal 34-104 [facility] Comment on above: Order Comment: No: D o not add to previous draw Performed By: #### 9 [id number], 66624, 40746, 01948 #### [facility] [address] [place] [address], [place] ALT [Catalytic activity/Vol] 10 U/L Normal 7-52 [facility] Comment on above: Order Comment: No: D o not add to previous draw Performed By: #### 9 9909, 15988, 35028, 53639 #### [facility] [address] [place] [address], [place] AST [Catalytic activity/Vol] 15 U/L Normal 13-39 [facility] Comment on above: Order Comment: No: D o not add to previous draw Performed By: #### 9 9909, 95276, 78154, 24963 #### [facility] [address] [place] [address], [facility] Bilirubin [Mass/Vol] 1.0 mg/dL Normal 0.3-1.0 [facility] Comment on above: Order Comment: No: D o not add to previous draw Performed By: #### 9 9909, 12836, 22745, 79259 #### [facility] [address] [place] [address], [facility] Bilirubin.direct [Mass/Vol] 0.5 mg/dL High 0.0-0.2 [facility] Comment on above: Order Comment: No: D o not add to previous draw Performed By: #### 9 9909, 35275, 37793, 71894 #### [facility] [address] [place] [address], [facility] Protein [Mass/Vol] 7.2 g/dL Normal 6.0-8.3 [facility] Comment on above: Order Comment: No: D o not add to previous draw Performed By: #### 9 9909, 68066, 24972, 37918 #### [facility] [address] [place] [address], [facility] MAGNESIUM BLOODon 04-12-2021 Magnesium [Mass/Vol] 2.5 mg/dL Normal 1.9-2.7 [facility] Comment on above: Order Comment: No: D o not add to previous draw Performed By: #### 9 9909, 53030, 45558, 27053 #### [facility] [address] [place] [address], [facility] PHOSPHORUS BLOODon Phosphate [Mass/Vol] 3.7 mg/dL Normal 2.5-5.0 [facility] Comment on above: Order Comment: No: D o not add to previous draw Performed By: #### 9 9909, 47284, 71221, 08991 #### [facility] [address] [place] [address], [facility] POC GLUCOSE LABon 04-12-2021 Glucose [Mass/Vol] 190 mg/dL High 70-100 [facility] Comment on above: Performed By: #### 8 5499 #### [facility] [address] [place] [address], [facility] Glucose [Mass/Vol] 117 mg/dL High 70-100 [facility] Comment on above: Performed By: #### 8 [id number] #### [facility] [address] [place] [address], [facility] PORTABLE CHEST 1 VIEWon 03-20 PORTABLE CHEST 1 VIEW [facility] Department of Radiology [address] [place] [id number] Patient Name: ADWOA PORTER : 1955 Sex: M Age: Race: White Pt. Location: [address] [place] [address] Patient Status: I Ordered Date: 04/12/2021 4:55:00 [...] edema. Electronically signed: Michaelle Villalba. Transcribed by: [email or web address], User Resident: Electronically Signed by: MICHAELLE VILLALBA @ 04/12/2021 05:27 PM Normal [facility] Comment on above: Order Comment: evalu ate for Pulmonary Edema PROTHROMBIN TIMEon INR Coag (PPP) [Relative time] 2.58 {INR} High 0.91-1.16 [facility] Comment on above: Order Comment: No: D [...] 1995;[id number]. Performed By: #### 3 5200 #### [facility] [address] PT Coag (PPP) [Time] 27.9 s High 12.3-14.8 [facility] Comment on above: Order Comment: No: D o not add to previous draw Result Comment: ALL RESULTS MUST BE INTERPRETED WITH RESPECT TO BLOOD DRAWING ARTIFACT OR DILUTION ERROR OF ANTICOAGULANT AT THE TIME OF SAMPLING. Performed By: #### 3 [id number] #### [facility] [address] TROPONIN-Ion 04-12-2021 Troponin I.cardiac [Mass/Vol] 0.05 ng/mL High 0.00-0.04 [facility] Comment on above: Order Comment: No: D o not add to previous draw Result Comment: REFE RENCE RANGES: 0.00 - 0.04 ng/ml NORMAL 0.05 - 0.50 ng/ml INDETERMINATE > 0.50 ng/ml CONSISTENT WITH AN M.I. Performed By: #### 9 9909, 84427, 67813, 25119 #### [facility] [address] Provider Letteron 11-16-2020 Provider Letter (Inserted Image. Radha ble to display) November 16, 2020 AD[address] PORTER [address] [place] [id number] ADWOA PORTER 1955 Dear Adwoa, You missed [...] appreciate your understanding. Sincerely, [facility] [address], [place] [address] [facility] Coding Summary.on 04-05-2020 Coding Summary. CODING DATE: 020 FINAL [facility] DSC STATUS: Home (Routine DC) PAYOR: Medicare [...] CphT Date Saved: 04/05/2020 10:26 am Normal [facility] Aerobic cultureon 12-04-2019 Aerobic Culture Staphylococcus aureus [facility] Aerobic Culture Klebsiella oxytoca F [facility] Transfusion reaction panel ( ABO, Rh)on 12-04-2019 Microscopic observation Gram stain Nom (Unsp spec) [facility] Vital Signs Date Time Vital Sign Value Performing Clinician Facility 11-22-2023 15:15-0500 Body height 170.18 cm Vinnie Stewart Other [facility] 11-22-2023 15:15-0500 Body mass index (BMI) [Ratio] 29.6 kg/m2 Vinnie Stewart Other [facility] Other 11-22-2023 15:15-0500 Body temperature 97.9 [degF] Vinnie Stewart Other [facility] [employer] Other 11-22-2023 15:15-0500 Body weight 85.73 kg Vinnie Stewart Other [facility] [employer] Other 11-22-2023 15:15-0500 Body weight 85.72 kg DO Vinnie Stewart Work Phone: [facility] 11-22-2023 15:15-0500 Diastolic blood pressure 60 mm[Hg] Vinnie Stewart Other [facility] 11-22-2023 15:15-0500 Respiratory rate 18 /min Vinnie Stewart Other [employer] Other 11-22-2023 15:15-0500 SaO2% (BldA) [Mass fraction] 98 % Vinnie Stewart Other [facility] [employer] Other 11-22-2023 15:15-0500 Systolic blood pressure 122 mm[Hg] Vinnie Stewart Other [facility] 11-15-2023 13:40-0500 Body height 170.18 cm Simba Jac Other [facility] 11-15-2023 13:40-0500 Body mass index (BMI) [Ratio] 28.94 kg/m2 Simba Jac Other [facility] Other 11-15-2023 13:40-0500 Body temperature 96.4 [degF] Simba Jac Other [facility] [employer] Other 11-15-2023 13:40-0500 Body weight 83.83 kg Simba Jac Other [facility] [employer] Other 11-15-2023 13:40-0500 Body weight 83.82 kg DO Vinnie Stewart Work Phone: [facility] 11-15-2023 13:40-0500 Diastolic blood pressure 62 mm[Hg] Simba Jac Other [facility] 11-15-2023 13:40-0500 Respiratory rate 18 /min Simba Jac Other [employer] Other 11-15-2023 13:40-0500 SaO2% (BldA) [Mass fraction] 92 % Simba Jac Other [facility] Other 11-15-2023 13:40-0500 Systolic blood pressure 110 mm[Hg] Simba Jac Other [facility] 11-13-2023 13:30-0500 Body height 170.18 cm Brittnee Scally Other [facility] 11-13-2023 13:30-0500 Body mass index (BMI) [Ratio] 28.94 kg/m2 Brittnee Scally Other [facility] Other 11-13-2023 13:30-0500 Body weight 83.83 kg Brittnee Scally Other [facility] Other 11-13-2023 13:30-0500 Body weight 83.82 kg DO Vinnie Lucasley Work Phone: [facility] 11-13-2023 13:30-0500 Diastolic blood pressure 63 mm[Hg] Brittnee Scally Other [facility] 11-13-2023 13:30-0500 Respiratory rate 18 /min Brittnee Scally Other [employer] Other 11-13-2023 13:30-0500 SaO2% (BldA) [Mass fraction] 95 % Brittnee Scally Other [facility] Other 11-13-2023 13:30-0500 Systolic blood pressure 107 mm[Hg] Brittnee Scally Other [facility] 10-08-2023 10:00-0500 Body height 170.18 cm Brittnee Scally Other [facility] 10-08-2023 10:00-0500 Body mass index (BMI) [Ratio] 30.57 kg/m2 Brittnee Scally Other [employer] Other 10-08-2023 10:00-0500 Body weight 88.54 kg Brittnee Scally Other [facility] 09-18-2023 15:00-0400 Body height 170.18 cm Brittnee Scally Other [employer] Other 09-18-2023 15:00-0400 Diastolic blood pressure 72 mm[Hg] Brittnee Scally Other [employer] Other 09-18-2023 15:00-0400 Respiratory rate 18 /min Brittnee Scally Other [employer] Other 09-18-2023 15:00-0400 SaO2% (BldA) [Mass fraction] 96 % Brittnee Scally Other [employer] Other 09-18-2023 15:00-0400 Systolic blood pressure 115 mm[Hg] Brittnee Scally Other [employer] Other 06-29-2023 10:30-0400 Body height 170.18 cm Vinnie Stewart Other [employer] Other 06-29-2023 10:30-0400 Body mass index (BMI) [Ratio] 31.99 kg/m2 Vinnie Stewart Other [employer] Other 06-29-2023 10:30-0400 Body weight 92.67 kg Vinnie Stewart Other [employer] Other 06-29-2023 10:30-0400 Diastolic blood pressure 72 mm[Hg] Vinnie Stewart Other [employer] Other 06-29-2023 10:30-0400 Respiratory rate 18 /min Vinnie Stewart Other [employer] Other 06-29-2023 10:30-0400 SaO2% (BldA) [Mass fraction] 95 % Vinnie Stewart Other [employer] Other 06-29-2023 10:30-0400 Systolic blood pressure 124 mm[Hg] Vinnie Stewart Other [employer] Other 06-29-2023 08:15-0400 Body height 170.18 cm Brittnee Scally Other [employer] Other 06-29-2023 08:15-0400 Diastolic blood pressure 62 mm[Hg] Brittnee Scally Other [employer] Other 06-29-2023 08:15-0400 Respiratory rate 18 /min Brittnee Scally Other [employer] Other 06-29-2023 08:15-0400 SaO2% (BldA) [Mass fraction] 94 % Brittnee Scally Other [employer] Other 06-29-2023 08:15-0400 Systolic blood pressure 104 mm[Hg] Brittnee Scally Other [employer] Other 06-18-2023 11:30-0400 Body height 170.18 cm Vinnie Stewart Other [employer] Other 06-18-2023 11:30-0400 Body mass index (BMI) [Ratio] 32.89 kg/m2 Vinnie Stewart Other [employer] Other 06-18-2023 11:30-0400 Body temperature 97.5 [degF] Vinnie Stewart Other [employer] Other 06-18-2023 11:30-0400 Body weight 95.26 kg Vinnie Stewart Other [employer] Other 06-18-2023 11:30-0400 Diastolic blood pressure 72 mm[Hg] Vinnie Stewart Other [employer] Other 06-18-2023 11:30-0400 Respiratory rate 18 /min Vinnie Stewart Other [employer] Other 06-18-2023 11:30-0400 SaO2% (BldA) [Mass fraction] 94 % Vinnie Stewart Other [employer] Other 06-18-2023 11:30-0400 Systolic blood pressure 126 mm[Hg] Vinnie Stewart Other [employer] Other 04-19-2023 11:20-0400 Body height 170.18 cm Simba Jac Other [employer] Other 04-19-2023 11:20-0400 Body mass index (BMI) [Ratio] 32.76 kg/m2 Simba Jac Other [facility] [employer] Other 04-19-2023 11:20-0400 Body temperature 97.6 [degF] Simba Jac Other [facility] [employer] Other 04-19-2023 11:20-0400 Body weight 94.89 kg Simba Jac Other [employer] Other 04-19-2023 11:20-0400 Diastolic blood pressure 60 mm[Hg] Simba Jac Other [employer] Other 04-19-2023 11:20-0400 Respiratory rate 18 /min Simba Jac Other [employer] Other 04-19-2023 11:20-0400 SaO2% (BldA) [Mass fraction] 98 % Simba Jac Other [facility] [employer] Other 04-19-2023 11:20-0400 Systolic blood pressure 120 mm[Hg] Simba Jac Other [employer] Other 03-21-2023 14:00-0400 Body height 170.18 cm Vinnie Stewart Other [employer] Other 03-21-2023 14:00-0400 Body mass index (BMI) [Ratio] 32.42 kg/m2 Vinnie Stewart Other [employer] Other 03-21-2023 14:00-0400 Body weight 93.9 kg Vinnie Stewart Other [employer] Other 03-21-2023 14:00-0400 Diastolic blood pressure 86 mm[Hg] Vinnie Stewart Other [employer] Other 03-21-2023 14:00-0400 Respiratory rate 18 /min Vinnie Stewart Other [employer] Other 03-21-2023 14:00-0400 SaO2% (BldA) [Mass fraction] 94 % Vinnie Stewart Other [employer] Other 03-21-2023 14:00-0400 Systolic blood pressure 132 mm[Hg] Vinnie Stewart Other [employer] Other 02-21-2023 15:45-0400 Body height 170.18 cm Vinnie Stewart Other [employer] Other 02-21-2023 15:45-0400 Body mass index (BMI) [Ratio] 32.57 kg/m2 Vinnie Stewart Other [employer] Other 02-21-2023 15:45-0400 Body weight 94.35 kg Vinnie Stewart Other [employer] Other 02-21-2023 15:45-0400 Diastolic blood pressure 76 mm[Hg] Vinnie Stewart Other [employer] Other 02-21-2023 15:45-0400 Respiratory rate 18 /min Vinnie Stewart Other [employer] Other 02-21-2023 15:45-0400 SaO2% (BldA) [Mass fraction] 97 % Vinnie Stewart Other [employer] Other 02-21-2023 15:45-0400 Systolic blood pressure 134 mm[Hg] Vinnie Stewart Other [employer] Other 02-14-2023 15:48-0400 Body temperature 97.5 [degF] DO Vinnie Stewart Work Phone: [facility] 03-29-2023 15:48-0400 Diastolic blood pressure 80 mm[Hg] DO Vinnie Stewart Work Phone: [facility] 02-14-2023 15:48-0400 Heart rate 86 /min DO Vinnie Stewart Work Phone: [facility] 02-14-2023 15:48-0400 Respiratory rate 16 /min DO Vinnie Stewart Work Phone: [facility] 02-14-2023 15:48-0400 SaO2% (BldA) [Mass fraction] 98 % DO Vinnie Stewart Work Phone: [facility] 02-14-2023 15:48-0400 Systolic blood pressure 137 mm[Hg] DO Vinnie Stewart Work Phone: [facility] 02-14-2023 14:01-0400 Body height 175.26 cm DO Vinnie Stewart Work Phone: [facility] 02-14-2023 06:00-0400 Body weight 97 kg DO Vinnie Stewart Work Phone: [facility] 02-13-2023 20:36-0400 Diastolic blood pressure 79 mm[Hg] DO Vinnie Stewart Work Phone: [facility] 02-13-2023 20:36-0400 Heart rate 86 /min DO Vinnie Stewart Work Phone: [facility] 02-13-2023 20:36-0400 Respiratory rate 16 /min DO Vinnie Stewart Work Phone: [facility] 02-13-2023 20:36-0400 SaO2% (BldA) [Mass fraction] 94 % DO Vinnie Stewart Work Phone: [facility] 02-13-2023 20:36-0400 Systolic blood pressure 146 mm[Hg] DO Vinnie Stewart Work Phone: [facility] 02-13-2023 15:38-0400 Body height 175.26 cm DO Vinnie Stewart Work Phone: [facility] 02-13-2023 15:38-0400 Body temperature 97.8 [degF] DO Vinnie Stewart Work Phone: [facility] 02-13-2023 15:38-0400 Body weight 96.16 kg DO Vinnie Stewart Work Phone: [facility] 02-09-2023 12:45-0400 Body height 170.18 cm Vinnie Stewart Other [employer] Other 02-09-2023 12:45-0400 Body mass index (BMI) [Ratio] 33.2 kg/m2 Vinnie Stewart Other [employer] Other 02-09-2023 12:45-0400 Body weight 96.16 kg Vinnie Stewart Other [employer] Other 02-09-2023 12:45-0400 Diastolic blood pressure 82 mm[Hg] Vinnie Stewart Other [employer] Other 02-09-2023 12:45-0400 Respiratory rate 18 /min Vinnie Stewart Other [employer] Other 02-09-2023 12:45-0400 SaO2% (BldA) [Mass fraction] 94 % Vinnie Stewart Other [employer] Other 02-09-2023 12:45-0400 Systolic blood pressure 128 mm[Hg] Vinnie Stewart Other [employer] Other 01-17-2023 15:30-0500 Body height 170.18 cm Vinnie Stewart Other [employer] Other 01-17-2023 15:30-0500 Body mass index (BMI) [Ratio] 36.02 kg/m2 Vinnie Stewart Other [employer] Other 01-17-2023 15:30-0500 Body weight 104.33 kg Vinnie Stewart Other [employer] Other 01-17-2023 15:30-0500 Diastolic blood pressure 82 mm[Hg] Vinnie Stewart Other [employer] Other 01-17-2023 15:30-0500 Respiratory rate 18 /min Vinnie Stewart Other [employer] Other 01-17-2023 15:30-0500 SaO2% (BldA) [Mass fraction] 94 % Vinnie Stewart Other [employer] Other 01-17-2023 15:30-0500 Systolic blood pressure 134 mm[Hg] Vinnie Stewart Other [employer] Other 12-04-2022 13:06-0500 Body height 175.26 cm DO Vinnie Stewart Work Phone: [facility] 12-04-2022 13:06-0500 Body weight 100.8 kg DO Vinnie Stewart Work Phone: [facility] 12-04-2022 13:06-0500 Diastolic blood pressure 84 mm[Hg] DO Vinnie Stewart Work Phone: [facility] 12-04-2022 13:06-0500 Heart rate 86 /min DO Vinnie Stewart Work Phone: [facility] 12-04-2022 13:06-0500 Respiratory rate 20 /min DO Vinnie Stewart Work Phone: [facility] 12-04-2022 13:06-0500 SaO2% (BldA) [Mass fraction] 96 % DO Vinnie Stewart Work Phone: [facility] 12-04-2022 13:06-0500 Systolic blood pressure 129 mm[Hg] DO Vinnie Stewart Work Phone: [facility] 11-07-2022 14:45-0500 Body height 170.18 cm Brittnee Scally Other [employer] Other 11-07-2022 14:45-0500 Body mass index (BMI) [Ratio] 39.7 kg/m2 Brittnee Scally Other [employer] Other 11-07-2022 14:45-0500 Body weight 114.99 kg Brittnee Scally Other [employer] Other 11-07-2022 14:45-0500 Diastolic blood pressure 68 mm[Hg] Brittnee Scally Other [employer] Other 11-07-2022 14:45-0500 Respiratory rate 20 /min Brittnee Scally Other [employer] Other 11-07-2022 14:45-0500 SaO2% (BldA) [Mass fraction] Brittnee Scally Other [employer] Other 11-07-2022 14:45-0500 Systolic blood pressure 108 mm[Hg] Brittnee Scally Other [employer] Other 09-28-2022 13:00-0500 Diastolic blood pressure 67 mm[Hg] Gisselle Dickey Other [employer] Other 09-28-2022 13:00-0500 Respiratory rate 18 /min Gisselle Noble Other [employer] Other 09-28-2022 13:00-0500 SaO2% (BldA) [Mass fraction] 92 % Gisselle Noble Other [facility] Other 09-28-2022 13:00-0500 Systolic blood pressure 123 mm[Hg] Gisselle Noble Other [employer] Other 09-28-2022 12:40-0500 Body height 170.18 cm Simba Jac Other [employer] Other 09-28-2022 12:40-0500 Body mass index (BMI) [Ratio] 37.93 kg/m2 Simba Jac Other [employer] Other 09-28-2022 12:40-0500 Body temperature 96.2 [degF] Simba Jac Other [facility] Other 09-28-2022 12:40-0500 Body weight 109.86 kg Simba Jac Other [employer] Other 09-28-2022 12:40-0500 Diastolic blood pressure 81 mm[Hg] Simba Jac Other [facility] Other 09-28-2022 12:40-0500 Respiratory rate 20 /min Simba Jac Other [employer] Other 09-28-2022 12:40-0500 SaO2% (BldA) [Mass fraction] 90 % Simba Jac Other [facility] Other 09-28-2022 12:40-0500 Systolic blood pressure 139 mm[Hg] Simba Kaufman Other [employer] Other 09-13-2022 14:00-0400 Body height 170.18 cm Vinnie Stewart Other [employer] Other 09-13-2022 14:00-0400 Body mass index (BMI) [Ratio] 35.71 kg/m2 Vinnie Stewart Other [employer] Other 09-13-2022 14:00-0400 Body weight 103.42 kg Vinnie Stewart Other [employer] Other 09-13-2022 14:00-0400 Diastolic blood pressure 81 mm[Hg] Vinnie Stewart Other [employer] Other 09-13-2022 14:00-0400 Respiratory rate 16 /min Vinnie Stewart Other [employer] Other 09-13-2022 14:00-0400 SaO2% (BldA) [Mass fraction] 97 % Vinnie Stewart Other [employer] Other 09-13-2022 14:00-0400 Systolic blood pressure 119 mm[Hg] Vinnie Stewart Other [employer] Other 07-31-2022 15:30-0400 Body height 170.18 cm Brittnee Spain Other [employer] Other 07-31-2022 15:30-0400 Body mass index (BMI) [Ratio] 35.55 kg/m2 Brittnee Spain Other [employer] Other 07-31-2022 15:30-0400 Body weight 102.97 kg Brittnee Scally Other [employer] Other 07-31-2022 15:30-0400 Diastolic blood pressure 78 mm[Hg] Brittnee Scally Other [employer] Other 07-31-2022 15:30-0400 Respiratory rate 20 /min Brittnee Scally Other [employer] Other 07-31-2022 15:30-0400 SaO2% (BldA) [Mass fraction] 95 % Brittnee Scally Other [employer] Other 07-31-2022 15:30-0400 Systolic blood pressure 125 mm[Hg] Brittnee Scally Other [employer] Other 06-20-2022 12:15-0400 Body height 170.18 cm Vinnie Stewart Other [employer] Other 06-20-2022 12:15-0400 Body mass index (BMI) [Ratio] 35.55 kg/m2 Vinnie Stewart Other [employer] Other 06-20-2022 12:15-0400 Body weight 102.97 kg Vinnie Stewart Other [employer] Other 06-20-2022 12:15-0400 Diastolic blood pressure 47 mm[Hg] Vinnie Stewart Other [employer] Other 06-20-2022 12:15-0400 Respiratory rate 18 /min Vinnie Stewart Other [employer] Other 06-20-2022 12:15-0400 SaO2% (BldA) [Mass fraction] 94 % Vinnie Stewart Other [employer] Other 06-20-2022 12:15-0400 Systolic blood pressure 106 mm[Hg] Vinnie Stewart Other [employer] Other 06-06-2022 11:36-0400 Body temperature 98 [degF] DO Vinnie Stewart Work Phone: [facility] 03-02-2022 15:30-0400 Body height 170.18 cm Vinnie Stewart Other [employer] Other 03-02-2022 15:30-0400 Body mass index (BMI) [Ratio] 35.39 kg/m2 Vinnie Stewart Other [employer] Other 03-02-2022 15:30-0400 Body temperature 97.5 [degF] Vinnie Stewart Other [employer] Other 03-02-2022 15:30-0400 Body weight 102.51 kg Vinnie Stewart Other [employer] Other 03-02-2022 15:30-0400 Diastolic blood pressure 74 mm[Hg] Vinnie Stewart Other [employer] Other 03-02-2022 15:30-0400 Respiratory rate 20 /min Vinnie Stewrat Other [facility] [employer] Other 03-02-2022 15:30-0400 SaO2% (BldA) [Mass fraction] 94 % Vinnie Stewart Other [employer] Other 03-02-2022 15:30-0400 Systolic blood pressure 114 mm[Hg] Vinnie Stewart Other [employer] Other 02-19-2022 12:05-0400 Body height 170.18 cm Ruthie Clementemond Other [employer] Other 02-19-2022 12:05-0400 Body mass index (BMI) [Ratio] 35.71 kg/m2 Ruthie Guzman Other [employer] Other 02-19-2022 12:05-0400 Body temperature 97.4 [degF] Ruthie Clementemond Other [employer] Other 02-19-2022 12:05-0400 Body weight 103.42 kg Ruthie Clementemond Other [employer] Other 02-19-2022 12:05-0400 Diastolic blood pressure 62 mm[Hg] Ruthie Clementemond Other [employer] Other 02-19-2022 12:05-0400 Respiratory rate 20 /min Ruthie Clementemond Other [employer] Other 02-19-2022 12:05-0400 SaO2% (BldA) [Mass fraction] 94 % Ruthie Clementemond Other [employer] Other 02-19-2022 12:05-0400 Systolic blood pressure 116 mm[Hg] Ruthie Clementemond Other [employer] Other 02-07-2022 16:00-0400 Body height 170.18 cm Balbir Ba Other [employer] Other 02-07-2022 16:00-0400 Body mass index (BMI) [Ratio] 36.02 kg/m2 Balbir Mejia Other [employer] Other 02-07-2022 16:00-0400 Body temperature 97.3 [degF] Balbir Mejia Other [employer] Other 02-07-2022 16:00-0400 Body weight 104.33 kg Balbir Mejia Other [employer] Other 02-07-2022 16:00-0400 Diastolic blood pressure 74 mm[Hg] Balbir Mejia Other [employer] Other 02-07-2022 16:00-0400 SaO2% (BldA) [Mass fraction] 98 % Balbir Mejia Other [employer] Other 02-07-2022 16:00-0400 Systolic blood pressure 136 mm[Hg] Balbir Mejia Other [employer] Other 01-11-2022 14:00-0500 Body height 170.18 cm Brittnee Scally Other [employer] Other 01-11-2022 14:00-0500 Body mass index (BMI) [Ratio] 35.5 kg/m2 Brittnee Scally Other [employer] Other 01-11-2022 14:00-0500 Body weight 102.83 kg Brittnee Scally Other [facility] Other 01-11-2022 14:00-0500 Diastolic blood pressure 62 mm[Hg] Brittnee Scally Other [employer] Other 01-11-2022 14:00-0500 Respiratory rate 20 /min Brittnee Scally Other [employer] Other 01-11-2022 14:00-0500 SaO2% (BldA) [Mass fraction] 98 % Brittnee Scally Other [employer] Other 01-11-2022 14:00-0500 Systolic blood pressure 105 mm[Hg] Brittnee Scally Other [employer] Other 11-16-2021 14:00-0500 Body height 170.18 cm Brittnee Scally Other [employer] Other 11-16-2021 14:00-0500 Body mass index (BMI) [Ratio] 35.72 kg/m2 Brittnee Scally Other [employer] Other 11-16-2021 14:00-0500 Body weight 103.47 kg Brittnee Scally Other [employer] Other 11-16-2021 14:00-0500 Diastolic blood pressure 70 mm[Hg] Brittnee Scally Other [employer] Other 11-16-2021 14:00-0500 Respiratory rate 20 /min Brittnee Scally Other [employer] Other 11-16-2021 14:00-0500 SaO2% (BldA) [Mass fraction] 93 % Brittnee Scally Other [employer] Other 11-16-2021 14:00-0500 Systolic blood pressure 123 mm[Hg] Brittnee Scally Other [employer] Other 10-05-2021 14:45-0500 Body height 170.18 cm Brittnee Scally Other [employer] Other 10-05-2021 14:45-0500 Body mass index (BMI) [Ratio] 35.42 kg/m2 Brittnee Scally Other [employer] Other 10-05-2021 14:45-0500 Body weight 102.6 kg Brittnee Scally Other [employer] Other 10-05-2021 14:45-0500 Diastolic blood pressure 74 mm[Hg] Brittnee Scally Other [employer] Other 10-05-2021 14:45-0500 Respiratory rate 20 /min Brittnee Scally Other [employer] Other 10-05-2021 14:45-0500 SaO2% (BldA) [Mass fraction] 95 % Brittnee Scally Other [employer] Other 10-05-2021 14:45-0500 Systolic blood pressure 123 mm[Hg] Brittnee Scally Other [employer] Other 09-26-2021 12:00-0500 Body height 170.18 cm Vinnie Stewart Other [employer] Other 09-26-2021 12:00-0500 Body mass index (BMI) [Ratio] 35.39 kg/m2 Vinnie Stewart Other [employer] Other 09-26-2021 12:00-0500 Body temperature 98.1 [degF] Vinnie Stewart Other [employer] Other 09-26-2021 12:00-0500 Body weight 102.51 kg Vinnie Stewart Other [employer] Other 09-26-2021 12:00-0500 Diastolic blood pressure 72 mm[Hg] Vinnie Stewart Other [employer] Other 09-26-2021 12:00-0500 Respiratory rate 20 /min Vinnie Stewart Other [employer] Other 09-26-2021 12:00-0500 SaO2% (BldA) [Mass fraction] 95 % Vinnie Stewart Other [employer] Other 09-26-2021 12:00-0500 Systolic blood pressure 118 mm[Hg] Vinnie Stewart Other [employer] Other 12-18-2019 10:11-0500 BMI (Body Mass Index) 35.2 kg/m2 [facility] 12-18-2019 10:11-0500 Body weight 108.4 kg [facility] 12-18-2019 10:11-0500 Height 175.26 cm [facility] 12-18-2019 10:01-0500 Body Temperature 97.8 [degF] Vinnie [facility] 12-18-2019 10:01-0500 BP Diastolic 80 mm[Hg] [facility] 12-18-2019 10:01-0500 BP Systolic 126 mm[Hg] [facility] 12-18-2019 10:01-0500 Pulse (Heart Rate) 108 /min [facility] 12-18-2019 10:01-0500 Respiratory Rate 16 /min Vinnie Stewart [facility] Encounters Encounter Date Encounter Type Care Provider Facility Start: 01-17-2024 End: 01-17-2024 ambulatory Jorge Arroyo Facility:[facility] Start: 12-27-2023 End: 12-27-2023 ambulatory Vinnie Stewart Other [employer] Other Start: 12-27-2023 Telephone encounter Vinnie Palomino [facility] Start: 12-20-2023 End: 12-20-2023 ambulatory Vinnie Stewart Other [facility] Other Start: 12-20-2023 Telephone encounter Vinnie Palomino [facility] Start: 12-18-2023 End: 12-19-2023 ambulatory VINNIE STEWART [facility] Start: 12-17-2023 End: 12-17-2023 ambulatory Vinnie Stewart Other [employer] Other Start: 12-17-2023 Telephone encounter Vinnie Palomino [facility] Start: 12-11-2023 Non-patient / Non-visit DO Vinnie Stewart Work Phone: [facility] [employer] Work Phone: Start: 12-10-2023 End: 12-11-2023 ambulatory Vinnie Stewart Facility:[facility] Start: 12-10-2023 End: 12-10-2023 Discharged Recurring DO Vinnie Stewart Work Phone: [facility] Work Phone: Start: 12-10-2023 End: 12-10-2023 ambulatory DO Vinnie Stewart Work Phone: [facility] [employer] Other Start: 12-10-2023 Nursing evaluation o f patient and report Brittnee Spain [facility] Start: 11-22-2023 End: 11-22-2023 ambulatory Vinnie Stewart Other [employer] Other Start: 11-22-2023 Office outpatient visit 15 minutes Vinnie Stewart [facility] Start: 11-22-2023 Telephone encounter Vinnie ROSALES [facility] [place] Start: 11-22-2023 End: 11-22-2023 Patient encounter procedure DO Vinnie Stewart Work Phone: [facility] [place] Work Phone: Start: 11-21-2023 End: 11-21-2023 ambulatory Vinnie Stewart Other [employer] Other Start: 11-21-2023 Telephone encounter Vinnie [facility] Start: 11-15-2023 End: 11-15-2023 ambulatory Simba Jac Other [employer] Other Start: 11-15-2023 Office outpatient visit 25 minutes Simba Jac [facility] Start: 11-15-2023 End: 11-15-2023 Patient encounter procedure DO Vinnie Stewart Work Phone: [facility] [place] Work Phone: Start: 11-13-2023 (DM) Diabetes Brittnee yee [facility] Start: 11-13-2023 End: 11-13-2023 ambulatory Brittnee Spain Other [employer] Other Start: 11-13-2023 Telephone encounter Brittnee harrington [facility] Start: 11-13-2023 End: 11-13-2023 Patient encounter procedure DO Vinnie Stewart Work Phone: [facility] Work Phone: Start: 11-06-2023 End: 11-06-2023 ambulatory Vinnie Stewart Other [employer] Other Start: 11-06-2023 Telephone encounter Vinnie [facility] Start: 11-01-2023 End: 11-01-2023 ambulatory Brittnee Spain Other [employer] Other Start: 11-01-2023 Telephone encounter Brittnee harrington [facility] Start: 10-25-2023 End: 10-25-2023 ambulatory Vinnie Stewart Other [employer] Other Start: 10-25-2023 Telephone encounter Vinnie Palomino [facility] [place] Start: 10-22-2023 End: 10-22-2023 ambulatory Brittnee Spain Other [employer] Other Start: 10-22-2023 Telephone encounter Brittnee merritts [facility] Start: 10-19-2023 End: 10-19-2023 ambulatory Vinnie Stewart Other [employer] Other Start: 10-19-2023 Telephone encounter Vinnie Palomino [facility] [place] Start: 10-08-2023 End: 10-08-2023 ambulatory Brittnee Spain Other [employer] Other Start: 10-08-2023 Nursing evaluation o f patient and report Brittnee Spain [facility] Start: 10-08-2023 End: 10-08-2023 Patient encounter procedure DO Vinnie Stewart Work Phone: [facility] Work Phone: Start: 10-04-2023 (Acute) Acute Visit Brittnee merritts [facility] Start: 10-04-2023 End: 10-04-2023 ambulatory Brittnee Spain Other [employer] Other Start: 10-03-2023 End: 10-03-2023 ambulatory Brittnee Spain Other [employer] Other Start: 10-03-2023 Telephone encounter Brittnee Matt [facility] Start: 09-21-2023 End: 09-21-2023 ambulatory [facility] Start: 09-20-2023 End: 09-20-2023 ambulatory Vinnie Stewart Other [employer] Other Start: 09-20-2023 Telephone encounter Vinnie [facility] Start: 09-18-2023 (DM) Diabetes Brittnee Spain [facility] Start: 09-18-2023 End: 09-18-2023 ambulatory Vinnie Stewart Other [employer] Other Start: 09-18-2023 Telephone encounter Vinnie [facility] Start: 09-17-2023 End: 09-17-2023 ambulatory Vinnie Stewart Other [employer] Other Start: 09-17-2023 Telephone encounter Vinnie [facility] Start: 08-31-2023 End: 08-31-2023 ambulatory Brittnee Spain Other [employer] Other Start: 08-31-2023 Telephone encounter Brittnee Matt [facility] Start: 08-30-2023 End: 08-30-2023 ambulatory UNKNOWN PROVIDER [employer] Other Start: 08-30-2023 Telephone encounter Vinnie [facility] Start: 08-23-2023 End: 08-23-2023 ambulatory MASSIMO SIMEON [employer] Other Start: 08-23-2023 Telephone encounter Vinnie [facility] Start: 08-20-2023 End: 08-20-2023 ambulatory Vinnie Stewart Other [employer] Other Start: 08-20-2023 Telephone encounter Vinnie [facility] Start: 08-15-2023 Telephone encounter Vinnie [facility] Start: 08-15-2023 End: 08-15-2023 ambulatory BRYCE WATSON [employer] Other Start: 08-03-2023 End: 08-03-2023 ambulatory Vinnie Stewart Other [employer] Other Start: 08-03-2023 Telephone encounter Vinnie [facility] Start: 07-30-2023 End: 07-30-2023 ambulatory Vinnie Stewart Other [employer] Other Start: 07-30-2023 Telephone encounter Vinnie [facility] Start: 07-27-2023 End: 07-27-2023 ambulatory Vinnie Stewart Other [employer] Other Start: 07-27-2023 Telephone encounter Vinnie [facility] Start: 07-24-2023 End: 07-24-2023 ambulatory [facility] Start: 07-20-2023 End: 07-20-2023 ambulatory Vinnie Stewart Other [employer] Other Start: 07-20-2023 Telephone encounter Vinnie [facility] Start: 07-19-2023 End: 07-19-2023 ambulatory Vinnie Stewrat Other [employer] Other Start: 07-19-2023 Telephone encounter Vinnie [facility] Start: 07-16-2023 End: 07-16-2023 ambulatory Vinnie Stewart Other [employer] Other Start: 07-16-2023 Telephone encounter Vinnie ROSALES [facility] Start: 07-12-2023 End: 07-12-2023 ambulatory Vinnie Stewart Other [employer] Other Start: 07-12-2023 Telephone encounter Vinnie ROSALES [facility] Start: 06-29-2023 (DM) Diabetes Brittnee Judit [facility] Start: 06-29-2023 End: 06-29-2023 ambulatory Vinnie Stewart Other [employer] Other Start: 06-29-2023 Office outpatient visit 15 minutes Vinnie Stewart [facility] Start: 06-18-2023 End: 06-18-2023 ambulatory Vinnie Stewart Other [employer] Other Start: 06-18-2023 Office outpatient visit 15 minutes Vinnie Stewart [facility] Start: 06-15-2023 End: 06-15-2023 ambulatory Vinnie Stewart Other [employer] Other Start: 06-15-2023 Telephone encounter Vinnie ROSALES [facility] Start: 06-05-2023 End: 06-06-2023 ambulatory [facility] Start: 05-31-2023 End: 05-31-2023 ambulatory Vinnie Stewart Other [employer] Other Start: 05-31-2023 Telephone encounter Vinnie ROSALES [facility] Start: 05-18-2023 End: 05-18-2023 ambulatory Vinnie Stewart Other [employer] Other Start: 05-18-2023 Telephone encounter Vinnie [facility] Start: 05-08-2023 End: 05-08-2023 ambulatory Nicolette Manzano Other [employer] Other Start: 05-08-2023 Telephone encounter Nicolette Manzano [facility] Start: 05-02-2023 End: 05-02-2023 ambulatory Brittnee Spain Other [employer] Other Start: 05-02-2023 Nursing evaluation o f patient and report Brittnee Spain [facility] Start: 04-20-2023 End: 04-20-2023 ambulatory Vinnie Stewart Other [employer] Other Start: 04-20-2023 Telephone encounter Vinnie [facility] Start: 04-19-2023 End: 04-19-2023 ambulatory Simba Jac Other [employer] Other Start: 04-19-2023 Office outpatient visit 15 minutes Gisselle Dickey [facility] Start: 04-19-2023 Office outpatient visit 25 minutes Simba Jac [facility] Start: 04-18-2023 End: 04-18-2023 ambulatory Vinnie Stewart Other [employer] Other Start: 04-18-2023 Telephone encounter Vinnie [facility] Start: 04-17-2023 Telephone encounter Vinnie [facility] Start: 04-17-2023 End: 04-17-2023 ambulatory JORGE Goodman [facility] Facility:[facility] Start: 04-13-2023 End: 04-13-2023 ambulatory Simba Jac Other [employer] Other Start: 04-13-2023 Telephone encounter Simba Jac [facility] Start: 04-11-2023 End: 04-12-2023 ambulatory SIMBA ATKINSR Facility: Start: 04-02-2023 End: 04-03-2023 ambulatory JORGE Goodman [facility] [employer] Other Start: 04-02-2023 Telephone encounter Vinnie [facility] Start: 03-27-2023 End: 03-28-[address] DEEPAK FOURNIER . [facility] [employer] Other Start: 03-27-2023 Telephone encounter Brittneejorge l harrington [facility] Start: 03-21-2023 End: 03-21-2023 ambulatory AURELIANOJorge L SIMI [facility] [employer] Other Start: 03-21-2023 Office outpatient visit 15 minutes Vinnie FRANCISCO [facility] Start: 03-19-2023 Telephone encounter Vinnie [facility] Start: 03-19-2023 End: 04-18-2023 ambulatory BROWN Jorge L GIGI [facility] [employer] Other Start: 02-27-2023 End: 02-27-2023 ambulatory Vinnie Stewart Other [employer] Other Start: 02-27-2023 Telephone encounter Vinnie [facility] Start: 02-21-2023 End: 02-21-2023 ambulatory Yakov To Facility:[facility] Start: 02-21-2023 Office outpatient visit 15 minutes Vinnie Stewart [facility] [place] Start: 02-21-2023 End: 02-21-2023 ambulatory DO Vinnie Stewart Work Phone: [facility] Work Phone: Start: 02-21-2023 End: 02-21-2023 Patient encounter procedure DO Vinnie Stewart Work Phone: [facility] [place] Work Phone: Start: 02-20-2023 End: 02-20-2023 ambulatory Vinnie Stewart Other [employer] Other Start: 02-20-2023 Telephone encounter Vinnie [facility]om[facility] Start: 02-19-2023 End: 03-16-2023 ambulatory SHAIKH Jorge L YU Facility: Start: 02-13-2023 End: 02-14-2023 Evaluation and management of inpatient Vinnie Stewart Facility:[facility] Start: 02-13-2023 End: 02-14-2023 Evaluation and management of inpatient DO Vinnie Lucasley Work Phone: [facility] [place] [facility] Work Phone: Start: 02-13-2023 Registered Recurring DO Vinnie Stewart Work Phone: [facility] Work Phone: Start: 02-13-2023 End: 02-13-2023 ambulatory Vinnie Stewart Other [employer] Other Start: 02-13-2023 Telephone encounter Vinnie [facility] Start: 02-09-2023 End: 02-09-2023 ambulatory Vinnie Stewart Other [employer] Other Start: 02-09-2023 Office outpatient visit 15 minutes Vinnie FRANCISCO [facility] [place] Start: 02-05-2023 End: 02-05-2023 ambulatory Vinnie Stewart Other [employer] Other Start: 02-05-2023 Telephone encounter Vinnie [facility]om[facility] [place] Start: 01-30-2023 End: 01-30-2023 ambulatory Vinnie Stewart Other [employer] Other Start: 01-30-2023 Telephone encounter Vinnie [facility]om[facility] [place] Start: 01-29-2023 End: 01-30-2023 ambulatory SUSHIL STOUT Facility:[facility] Start: 01-29-2023 End: 01-29-2023 ambulatory [facility] Start: 01-17-2023 Office outpatient visit 15 minutes Vinnie FRANCISCO [facility] Start: 01-17-2023 End: 02-16-2023 ambulatory SHAIKH Jorge L YU [facility] Other Start: 01-16-2023 End: 01-16-2023 ambulatory Vinnie Stewart Other [employer] Other Start: 01-16-2023 Telephone encounter Vinnie [facility] Start: 01-05-2023 End: 01-11-2023 Evaluation and management of inpatient NIK BUNN . Facility:[facility] Start: 01-05-2023 ambulatory [facility] Start: 01-02-2023 End: 01-02-2023 ambulatory CANDELARIA WEATHERS . Facility:[facility] Start: 01-02-2023 End: 01-03-2023 ambulatory [facility] Facility:[facility] Start: 12-26-2022 End: 12-26-2022 ambulatory [facility] Start: 12-26-2022 End: 12-27-2022 ambulatory [facility] Facility:[facility] Start: 12-22-2022 End: 12-22-2022 ambulatory Vinnie Stewart Other [facility] [employer] Other Start: 12-22-2022 Telephone encounter Vinnie [facility]om[facility] Start: 12-21-2022 ambulatory [facility] Start: 12-20-2022 End: 01-17-2023 ambulatory SHAIKH Jorge L YU Facility:[facility]1 Start: 12-19-2022 Telephone encounter Vinnie Palomino [facility] [place] Start: 12-19-2022 End: 12-19-2022 ambulatory [employer] [facility] [employer] Other Start: 12-14-2022 End: 12-14-2022 ambulatory Vinnie Stewart Other [employer] Other Start: 12-14-2022 Telephone encounter Vinnie [facility] Start: 12-12-2022 End: 12-12-2022 ambulatory Brittnee Spain Other [employer] Other Start: 12-12-2022 Nursing evaluation o f patient and report Brittnee Spain [facility] Start: 12-11-2022 Telephone encounter Vinnie [facility] Start: 12-11-2022 End: 12-11-2022 ambulatory KODI MYERS [employer] Other Start: 12-04-2022 End: 12-04-2022 ambulatory DO Vinnie Stewart Work Phone: [facility] Work Phone: Start: 12-04-2022 End: 12-04-2022 Registered Recurring DO Vinnie Stewart Work Phone: [facility] Work Phone: Start: 12-01-2022 End: 12-01-2022 ambulatory CHAR [facility] Start: 11-29-2022 End: 11-29-2022 ambulatory Vinnie Stewart Other [employer] Other Start: 11-29-2022 Telephone encounter Vinnie [facility] Start: 11-27-2022 End: 11-27-2022 ambulatory Vinnie Stewart Other [employer] Other Start: 11-27-2022 Telephone encounter Vinnie [facility] Start: 11-20-2022 End: 12-20-2022 ambulatory SHAIKH Jorge L YU Facility: Start: 11-14-2022 End: 11-15-[address] [facility] [employer] Other Start: 11-14-2022 Telephone encounter Vinnie [facility]ino [facility] Start: 11-07-2022 (DM) Diabetes Brittnee Segov[facility] Start: 11-07-2022 End: 11-07-2022 ambulatory Brittnee Judit Other [employer] Other Start: 11-07-2022 Registered Recurring DO Vinnie Stewart Work Phone: [facility] Work Phone: Start: 11-01-2022 End: 11-01-2022 ambulatory Brittnee Judit Other [employer] Other Start: 11-01-2022 Telephone encounter Brittnee harrington [facility] Start: 10-31-2022 End: 10-31-2022 ambulatory Vinnie Stewart Other [employer] Other Start: 10-31-2022 Telephone encounter Vinnie [facility]ino [facility] Start: 10-27-2022 Telephone encounter Gisselle Dickey [facility] Start: 10-27-2022 End: 10-28-2022 ambulatory BRYCE WATSON [facility] Other Start: 10-19-2022 End: 11-19-2022 ambulatory SHAIKH Jorge L YU Facility:[facility]1 Start: 10-11-2022 End: 10-11-2022 ambulatory Brittneejorge l Spain Other [employer] Other Start: 10-11-2022 Telephone encounter Brittnee harrington [facility] Start: 10-09-2022 End: 10-09-2022 ambulatory Vinnie Stewart Other [employer] Other Start: 10-09-2022 Telephone encounter Vinnie [facility] Start: 10-05-2022 End: 10-05-2022 ambulatory Vinnie Stewart Other [employer] Other Start: 10-05-2022 Telephone encounter Vinnie ROSALES [facility] Start: 10-03-2022 End: 10-03-[address] BIANCA STUART Facility:[facility]1 Start: 09-28-2022 End: 09-28-2022 ambulatory Simba Jac Other [employer] Other Start: 09-28-2022 Office outpatient visit 15 minutes Gisselle Dickey [facility] Start: 09-28-2022 Office outpatient visit 25 minutes Simba Jac [facility] Start: 09-27-2022 End: 09-27-2022 ambulatory Vinnie Stewart Other [employer] Other Start: 09-27-2022 Telephone encounter Vinnie [facility]om[facility] Start: 09-19-2022 End: 10-18-2022 ambulatory SHAIKH Jorg eL YU Facility:[facility] Start: 09-18-2022 Telephone encounter Brittnee Matt [facility] Start: 09-18-2022 End: 09-19-2022 ambulatory SIMBA JAC [employer] Other Start: 09-13-2022 End: 09-13-2022 ambulatory Vinnie Stewart Other [employer] Other Start: 09-13-2022 Office outpatient visit 15 minutes Vinnie FRANCISCO [facility] Start: 09-08-2022 End: 09-08-2022 ambulatory Vinnie Stewart Other [employer] Other Start: 09-08-2022 Telephone encounter Vinnie [facility] Start: 08-31-2022 End: 08-31-2022 ambulatory Brittnee Spain Other [employer] Other Start: 08-31-2022 Telephone encounter Brittnee Spain [facility] Start: 08-21-2022 End: 08-21-2022 ambulatory Vinnie Stewart Other [employer] Other Start: 08-21-2022 Telephone encounter Vinnie [facility] Start: 08-20-2022 End: 09-18-2022 ambulatory BROWN H FAWWAD Facility:[facility] Start: 08-02-2022 End: 08-02-2022 ambulatory Vinnie Stewart Other [employer] Other Start: 08-02-2022 Telephone encounter Vinnie Palomino [facility] Start: 07-31-2022 (DM) Diabetes Brittnee Spain [facility] Start: 07-31-2022 End: 07-31-2022 ambulatory Brittnee Spain Other [employer] Other Start: 07-20-2022 End: 08-19-2022 ambulatory BROWN H FAWWAD Facility:[facility] Start: 07-19-2022 End: 07-20-2022 ambulatory MASSIMO PECKER Facility:[facility] Start: 07-18-2022 End: 07-18-2022 ambulatory Brittnee Spain Other [employer] Other Start: 07-18-2022 Telephone encounter Brittnee Spain [facility] Start: 07-11-2022 End: 07-11-2022 ambulatory Vinnie Stewart Other [employer] Other Start: 07-11-2022 Telephone encounter Vinnie Palomino [facility] Start: 06-27-2022 End: 06-27-2022 ambulatory Vinnie Stewart Other [employer] Other Start: 06-27-2022 Telephone encounter Vinnie [facility] Start: 06-23-2022 End: 06-24-2022 ambulatory PETER D HIGHLANDER Facility:[facility] Start: 06-20-2022 End: 06-20-2022 ambulatory Vinnie Stewart Other [employer] Other Start: 06-20-2022 Office outpatient visit 15 minutes Vinnie FRANCISCO [facility] Start: 06-19-2022 Telephone encounter [facility] Start: 06-19-2022 End: 07-19-2022 ambulatory SHAIKH Jorge L FAEliciaWAD [employer] Other Start: 06-13-2022 End: 06-16-2022 Evaluation and management of inpatient SHAIKH Jorge L FAEliciaWAD Facility:[facility]1 Start: 06-06-2022 End: 06-06-2022 ambulatory Vinnie Stewart Other [employer] Other Start: 06-06-2022 Telephone encounter Vinnie [facility] Start: 06-01-2022 End: 06-02-2022 ambulatory PETER D HIGHLANDER Facility:[facility] Start: 05-30-2022 End: 05-30-2022 ambulatory Vinnie Stewart Other [employer] Other Start: 05-30-2022 Telephone encounter Vinnie [facility] Start: 05-25-2022 End: 05-26-2022 ambulatory PETER D HIGHLANDER Facility:[facility] Start: 05-19-2022 End: 06-16-2022 ambulatory BROWN H FAEliciaWAD Facility:[facility] Start: 05-18-2022 End: 05-19-2022 ambulatory PETER D HIGHLANDER Facility:[facility] Start: 05-17-2022 End: 05-17-2022 ambulatory Brittnee Judit Other [employer] Other Start: 05-17-2022 Telephone encounter Brittnee Matt [facility] Start: 05-16-2022 End: 05-16-2022 ambulatory Vinnie Stewart Other [employer] Other Start: 05-16-2022 Telephone encounter Vinnie [facility] Start: 05-08-2022 End: 05-10-2022 ambulatory VINNIE STEWART Facility:[facility] Start: 05-04-2022 End: 05-04-2022 ambulatory Vinnie Stewart Other [employer] Other Start: 05-04-2022 Telephone encounter Vinnie Palomino [facility] [place] Start: 04-28-2022 End: 05-02-2022 Evaluation and management of inpatient SHAIKH Jorge L YU Facility:[facility]1 Start: 04-26-2022 End: 04-26-2022 ambulatory Brittnee Judit Other [employer] Other Start: 04-26-2022 Telephone encounter Brittneepilo merrittandreina [facility] Start: 04-25-2022 End: 04-25-2022 ambulatory Vinnie Stewart Other [employer] Other Start: 04-25-2022 Telephone encounter [facility] Start: 04-24-2022 End: 04-24-2022 ambulatory Vinnie Stewart Other [employer] Other Start: 04-24-2022 Telephone encounter [facility] Start: 04-10-2022 End: 04-10-2022 ambulatory Brittnee Spain Other [employer] Other Start: 04-10-2022 Telephone encounter [facility] Start: 03-21-2022 End: 03-21-2022 ambulatory Vinnie Stewart Other [employer] Other Start: 03-21-2022 Telephone encounter [facility]innie [facility] Start: 03-17-2022 End: 03-17-2022 ambulatory Vinnie Stewart Other [employer] Other Start: 03-17-2022 Telephone encounter Vinnie Stewart [facility] [place] Start: 03-03-2022 End: 03-03-2022 ambulatory Vinnie Stewart Other [employer] Other Start: 03-03-2022 Telephone encounter Vinnie Stewart [facility] Start: 03-02-2022 End: 03-02-2022 ambulatory Vinnie Stewart Other [employer] Other Start: 03-02-2022 Office outpatient visit 15 minutes Vinnie Stewart [facility] Start: 02-20-2022 End: 02-20-2022 ambulatory Vinnie Stewart Other [employer] Other Start: 02-20-2022 Telephone encounter [facility]innie [facility] Start: 02-19-2022 End: 02-19-2022 ambulatory Ruthie Guzman Other [employer] Other Start: 02-19-2022 Office outpatient visit 15 minutes Ruthie Guzman [facility] Start: 02-19-2022 Telephone encounter [facility] Start: 02-10-2022 End: 02-10-2022 ambulatory Vinnie Stewart Other [employer] Other Start: 02-10-2022 Telephone encounter Vinnie [facility] Start: 02-07-2022 End: 02-07-2022 ambulatory Balbir Ba Other [employer] Other Start: 02-07-2022 Office outpatient visit 25 minutes [facility] Start: 02-06-2022 End: 02-06-2022 ambulatory Vinnie Stewart Other [employer] Other Start: 02-06-2022 Telephone encounter [facility] Start: 01-27-2022 End: 01-27-2022 ambulatory Vinnie Stewart Other [employer] Other Start: 01-27-2022 Telephone encounter [facility] Start: 01-26-2022 End: 01-26-2022 ambulatory Vinnie Stewart Other [employer] Other Start: 01-26-2022 Telephone encounter [facility] Start: 01-11-2022 (DM) Diabetes [facility] Start: 01-11-2022 End: 01-11-2022 ambulatory Brittnee Spain Other [employer] Other Start: 01-10-2022 End: 01-10-2022 ambulatory Vinnie Stewart Other [employer] Other Start: 01-10-2022 Telephone encounter [facility] Start: 01-05-2022 End: 01-05-2022 ambulatory Brittnee Spain Other [employer] Other Start: 01-05-2022 Telephone encounter [facility] Start: 12-26-2021 End: 12-26-2021 ambulatory Vinnie Stewart Other [employer] Other Start: 12-26-2021 Telephone encounter [facility] Start: 12-20-2021 End: 12-20-2021 ambulatory Brittnee Spain Other [employer] Other Start: 12-20-2021 Telephone encounter Brittnee [facility] Start: 12-09-2021 End: 12-09-2021 ambulatory Vinnie Stewart Other [employer] Other Start: 12-09-2021 Telephone encounter [facility] Start: 11-30-2021 End: 11-30-2021 ambulatory Vinnie Stewart Other [employer] Other Start: 11-30-2021 Telephone encounter [facility] Start: 11-29-2021 End: 11-29-2021 ambulatory Brittnee Spain Other [employer] Other Start: 11-29-2021 Telephone encounter Brittnee Spain [facility] Start: 11-28-2021 End: 11-28-2021 ambulatory Brittnee Spain Other [employer] Other Start: 11-28-2021 Telephone encounter [facility] Start: 11-21-2021 End: 11-21-2021 ambulatory Brittnee Spain Other [employer] Other Start: 11-21-2021 Telephone encounter Brittnee Spain [facility] Start: 11-17-2021 End: 11-17-2021 ambulatory Vinnie Stewart Other [employer] Other Start: 11-17-2021 Telephone encounter V[facility]omino [facility] [place] Start: 11-16-2021 (DM) Diabetes Brittnee Remaly [facility] Start: 11-16-2021 End: 11-16-2021 ambulatory Brittnee Spain Other [employer] Other Start: 10-11-2021 End: 10-11-2021 ambulatory Vinnie Lucasley Other [employer] Other Start: 10-11-2021 Telephone encounter [facility]innie [facility] Start: 10-10-2021 End: 10-10-2021 ambulatory Vinnie Stewart Other [employer] Other Start: 10-10-2021 Telephone encounter [facility] Start: 10-05-2021 (DM) Diabetes Brittnee Spain [facility] Start: 10-05-2021 End: 10-05-2021 ambulatory Brittnee Remalouisa Other [employer] Other Start: 09-26-2021 End: 09-26-2021 ambulatory Vinnie Stewart Other [employer] Other Start: 09-26-2021 Office outpatient visit 15 minutes Vinnie FRANCISCO [facility] [place] Start: 09-16-2021 End: 09-16-2021 ambulatory Brittnee Remalouisa Other [employer] Other Start: 09-16-2021 Telephone encounter [facility] Start: 04-12-2021 End: 04-17-2021 Evaluation and management of inpatient [place] Facility:[facility] Start: 12-16-2020 End: 12-16-2020 Patient encounter procedure Vinnie Stewart -[facility] Start: 12-06-2020 Registered Recurring Vinnie Stewart - Diabetes [facility] Start: 12-18-2019 End: 12-18-2019 Discharged Recurring Vinnie Stewart -[facility] Start: 09-23-2019 End: 09-23-2019 Patient encounter procedure Vinnie Stewart -[facility] Start: 02-24-2019 End: 02-24-2019 Admission to day surgery Vinnie Stewart -[facility] Procedures Date Procedure Procedure Detail Performing Clinician Start: 02-13-2023 CT of head without contrast DO Vinnie Stewart Work Phone: Start: 02-13-2023 Plain chest X-ray DO Rhonda Stewart Work Phone: Start: 04-13-2021 INTRODUCE OF [...] Date Care Activity Detail Author Start: 02-23-2023 [facility] Start: 02-22-2023 [facility] Start: 02-21-2023 [facility] Start: 02-20-2023 [facility] Start: 02-19-2023 [facility] Start: 02-18-2023 Blood chemistry [facility] Start: 02-18-2023 [facility] Start: 02-17-2023 Blood chemistry [facility] Start: 02-17-2023 [facility] Start: 02-16-2023 Blood chemistry [facility] Start: 02-16-2023 [facility] Start: 02-15-2023 Blood chemistry [facility] Start: 02-15-2023 [facility] Start: 02-14-2023 Blood chemistry [facility] Start: 02-14-2023 End: 02-14-2023 [facility] Start: 02-14-2023 [facility] Start: 02-13-2023 Hospital admission [facility] Start: 02-13-2023 Physical therapy procedure [facility] Start: 02-13-2023 Referral to occupati onal therapist [facility] Start: 02-13-2023 [facility] Patient Education Heart Failure, Adult (DC) [facility] Work Phone: Patient referral [facility] Work Phone: [facility] Immunizations Immunization Date Immunization Notes Care Provider Fa cility 08-23-2021 COVID-19 Vaccine Pfizer - Documentation Purposes Only Vinnie Stewart Other [facility] 08-10-2021 influenza, seasonal, injectable Vinnie Stewart Other [facility] 01-14-2021 COVID-19 Vaccine Pfizer - Documentation Purposes Only Vinnie Stewart Other [facility] 01-04-2021 COVID-19 Vaccine Moderna - Documentation Purposes Only Vinnie Stewart Other [facility] 12-24-2020 COVID-19 Vaccine Pfizer - Documentation Purposes Only Vinnie Stewart Other [facility] 10-19-2020 pneumococcal conjugate vaccine, 13 valent Vinnie Stewart Other [facility] 08-16-2018 zoster vaccine recombinant Vinnie Stewart Other [facility] 08-23-2016 pneumococcal polysaccharide vaccine, 23 valent Vinnie Stewart Other [facility] 08-21-2016 influenza, injectable, quadrivalent, preservative free DO Vinnie Stewart Work Phone: [facility] 08-21-2016 influenza, injectable, quadrivalent, contains preservative Vinnie Stewart Other [employer] Other NEGATED: Highlighted row has not occurred! 5 influenza, injectable, quadrivalent, contains preservative Patient Objection Vinnie Stewart Other [employer] Other Payers Date Payer Category Payer Medicare [id number] 2019 Self-pay [id number] 1959 Medicaid [id number] 1959 Unknown [id number] 1954 Unknown [id number] 2.16.8 40.1.540592.3.579.2.647 1954 Unknown [id number] 2.16.84 0.1.171446.3.579.2.593 1954 Unknown [id number] 2.16.84 0.1.350516.3.579.2.593 1954 Unknown [id number] 2.16.84 0.1.919600.3.579.2.593 1954 Unknown [id number] 2.16.84 0.1.625575.3.579.2.593 1954 Unknown [id number] 2.16.84 0.1.264205.3.579.2.593 1954 Unknown [id number] 2.16.84 0.1.389589.3.579.2.593 1954 Unknown [id number] 2.16.84 0.1.599797.3.579.2.593 1954 Unknown [id number] 2.16.84 0.1.105079.3.579.2.593 1954 Unknown [id number] 2.16.84 0.1.658256.3.579.2.593 1954 Unknown [id number] 2.16.84 0.1.792210.3.579.2.593 1954 Unknown [id number] 2.16.84 0.1.090620.3.579.2.593 1954 Unknown [id number] 2.16.84 0.1.833147.3.579.2.593 1954 Unknown [id number] 2.16.84 0.1.956619.3.579.2.593 1954 Unknown [id number] 2.16.84 0.1.211615.3.579.2.593 1954 Unknown [id number] 2.16.84 0.1.083234.3.579.2.593 1954 Unknown [id number] 2.16.84 0.1.746691.3.579.2.593 1954 Unknown [id number] 2.16.84 0.1.004535.3.579.2.593 1954 Unknown [id number] 2.16.84 0.1.048763.3.579.2.593 1954 Unknown [id number] 2.16.84 0.1.728256.3.579.2.593 1954 Unknown [id number] 2.16.84 0.1.354940.3.579.2.593 1954 Unknown [id number] 2.16.84 0.1.355074.3.579.2.593 1954 Unknown [id number] 2.16.84 0.1.311257.3.579.2.593 1954 Unknown [id number] 2.16.84 0.1.246115.3.579.2.593 1954 Unknown [id number] 2.16.84 0.1.059606.3.579.2.593 1954 Unknown [id number] 2.16.84 0.1.788835.3.579.2.593 1954 Unknown [id number] 2.16.84 0.1.276238.3.579.2.593 1954 Unknown [id number] 2.16.84 0.1.778398.3.579.2.593 1954 Unknown [id number] 2.16.84 0.1.362711.3.579.2.593 1954 Unknown [id number] 2.16.84 0.1.747659.3.579.2.593 1954 Unknown [id number] 2.16.84 0.1.743104.3.579.2.593 1954 Unknown [id number] 2.16.84 0.1.976465.3.579.2.593 1954 Unknown [id number] 2.16.84 0.1.322841.3.579.2.593 1954 Unknown [id number] 2.16.84 0.1.744949.3.579.2.593 1954 Unknown [id number] 2.16. 840.1.822717.3.579.2.732 1954 Unknown [id number] 2.16.8 40.1.649849.3.579.2.1286 Unknown [id number] Unknown [id number] 2.16.8 40.1.853713.3.579.2.531 Unknown [id number] 2.16.8 40.1.951238.3.579.2.531 Unknown [id number] 2.16.8 40.1.767048.3.579.2.531 Unknown [id number] 2.16.8 40.1.883668.3.579.2.531 Social History Date Type Detail Facility Start: 12-18-2019 End: 02-13-2023 Tobacco smoking status LAIS Ex-smoker (finding) [facility] Start: 1955 Sex Assigned At Male [facility] Sex Assigned At Sex Assigned At Bir th [employer] [facility] [employer] Other Medical Equipment Procedure Code Equipment Code Equipment Origin al Text Equipment Identifier Dates Pen Butler 32G X 4 MM Start: 03-21-2022 Goals Date Patient Goal Desired Activity /State Functional Status Date Assessment Result Facility 02-14-2023 Functional status Patient at Baseline [facility] Work Phone: Mental Status Date Assessment Result Facility 02-14-2023 Cognitive function Cognitive Sta tus Patient at Baseline [facility] Work Phone: Clinical Notes 04-18-2021 to 12-20-2023 Note Date & Type Note Facility 12-20-2023 Evaluation note Encounter Date Diagnosis Assessment Notes Dec, Facet arthritis of lumbar region (ICD-10 - M46.96) [facility] [employer] Other 01-29-2024 Evaluation note* Encounter Date Diagnosis Assessment Notes Treatment Notes Treatment Clinical Notes Nov, Increased urinary frequency (ICD-10 - R35.0) [facility] [employer] Other 01-22-2024 Evaluation note* Encounter Date Diagnosis [...] a burger and a few fries from [employer] before he came here. He said that [...] and making changes by Shaw Rondon RN, [facility] DEM[facility]ISHED 2001. [employer] Other 01-08-2024 History general Narrative - Reported* [...] Medical History [facility] Medical History 04/28/2022 Acute canadian bacon tier elie resp. failure w/hypoxia, COPD excacerbation [facility] Medical History 04/28/2022-Sepsis sec ./ Para influenza PNA multifocal-[facility] Medical History 05/08/2022-Increasing shortness of breath post recent Dx w/covid-19 Medical History 06/13/2022-Severe sep sis to Multifocal PNA, acute on chronic resp. failure w/hypoxia, acute on systolic chronic HF Medical History [facility]- r ight great toe bleeding (not stopping) Medical History pneumonia-[facility] 06-05 Medical History [facility]-7-2023 Medical History [id number]-[facility] Medical History NON RESPONSIVE X 2 IN [...] Hospitalization History rt. heart cath Rex Stout- [facility] 05/11/16 Hospitalization History Water retention/ [facility] 02/2017 Hospitalization History Observation-[facility] pital 11/2017 Hospitalization History INFECTION IN LEFT SMALL TOE AND FOOT 11/2018 Hospitalization History [facility] -- ICU -- COPD, SMAL L WOUND ON LEFT FOOT 12/2019 Hospitalization History COPD [facility] [place] 12/2019 Hospitalization History Ankle wound 01/2020 Hospitalization History COVID 11/2020 Hospitalization History A-FIB, CHF, KIDNEY ISSUE S 03/2021 Hospitalization History FR 01/2023 Hospitalization History [facility] discha rged - Hospitalization History [facility] x2 7-2 023 Hospitalization History RSV-[facility] 10-2 023 Hospitalization History [facility] rib fx left Hospitalization History [facility] -pnemo jennifer [employer] Other 01-08-2024 [facility]Remains [facility]-2024 NoteMonitor with routine echoUnWilson Health01-08-2024 NoteDevice interrogation q 6 monthsUnWilson Health01-08-2024 NoteContinue coreg AICD in placeUnWilson Health01-08-2024 NoteRemains on statin [facility]01-08-2024 NoteHypertension is Remains on Coreg, hydralazine, isordil, aldacotonUnWilson Health01-08-2024 NoteNYHC Continue GDMT- ASA, lipitor, coreg, farxiga, digoxin, hydralazine, isordil, aldactone Diuretic therapy- bumex and metolazone Monitor daily weights, I&O, fluid restriction 1.5-2L/day, renal function and electrolytes-[facility]01-08-2024 NoteRemains on GDMT [facility]01-08-2024 [id number]= remainds on warfarin anticoagulation, DIgoxin and COregUnWilson Health01-08-2024 NoteCoronary artery disease is Continue GDMT continue risk factor modifications- heart healthy diet, regular exercise as tolerated and continue all medications.[facility] 11-22-2023 Evaluation note* Encounter Date Diagnosis Assessment [...] arthritis of lumbar region (ICD-10 - M46.96) [employer] Other 01-03-2024 Evaluation note* Encounter Date Diagnosis Assessment Notes Treatment Notes Treatment Clinical Notes Nov, Facet arthritis of lumbar region (ICD-10 - M46.96) [employer] Other 12-28-2023 Evaluation note* Encounter Date Diagnosis [...] continue follow-up with hematology as needed basis. [employer] Other 12-26-2023 Evaluation note* Encounter Date Diagnosis [...] (hypertension) (ICD-10 - I10) reasonable today Oct, [facility] current use of insulin (ICD-10 - Z79.4) Oct, Vitamin B 12 deficiency (ICD-10 - E53.8) Oct, CKD (chronic kidney disease) stage 3, GFR 30-59 ml/min (ICD-10 - N18.3) keep f/u with nephrology Oct, Type 2 diabetes mellitus with diabetic neuropathy, unspecified (ICD-10 - E11.40) Oct, BMI 28.0-28.9,adult (ICD-10 - Z68.28) [employer] Other 12-21-2023 History general Narrative - Reported* [...] Medical History [facility] Medical History 04/28/2022 Acute canadian bacon tier elie resp. failure w/hypoxia, COPD excacerbation [facility] Medical History 04/28/2022-Sepsis sec ./ Para influenza PNA multifocal-[facility] Medical History 05/08/2022-Increasing shortness of breath post recent Dx w/covid-19 Medical History 06/13/2022-Severe sep sis to Multifocal PNA, acute on chronic resp. failure w/hypoxia, acute on systolic chronic HF Medical History [facility]- r ight great toe bleeding (not stopping) Medical History pneumonia-[facility] 06-05 Medical History [facility]-7-2023 Medical History [id number]-[facility] Surgical History Cardiac catherization (07/2010) Surgical History [...] Hospitalization History rt. heart cath Rex Stout- [facility] 05/11/16 Hospitalization History Water retention/ [facility] 02/2017 Hospitalization History Observation-[facility] pital 11/2017 Hospitalization History INFECTION IN LEFT SMALL TOE AND FOOT 11/2018 Hospitalization History [facility] -- ICU -- COPD, SMAL L WOUND ON LEFT FOOT 12/2019 Hospitalization History COPD [facility] [place] 12/2019 Hospitalization History Ankle wound 01/2020 Hospitalization History COVID 11/2020 Hospitalization History A-FIB, CHF, KIDNEY ISSUE S 03/2021 Hospitalization History [facility] 01/2023 Hospitalization History [facility] discha rged 03-27-2023 Hospitalization History [facility] x2 7-2 023 Hospitalization History RSV-[facility] 10-2 023 [employer] Other 12-19-2023 History general Narrative - Reported* [...] Medical History [facility] Medical History 04/28/2022 Acute canadian bacon tier elie resp. failure w/hypoxia, COPD excacerbation [facility] Medical History 04/28/2022-Sepsis sec ./ Para influenza PNA multifocal-[facility] Medical History 05/08/2022-Increasing shortness of breath post recent Dx w/covid-19 Medical History 06/13/2022-Severe sep sis to Multifocal PNA, acute on chronic resp. failure w/hypoxia, acute on systolic chronic HF Medical History [facility]- r ight great toe bleeding (not stopping) Medical History pneumonia-[facility] 06-05 Medical History [facility]-7-2023 Medical History [id number]-[facility] Surgical History Cardiac catherization (07/2010) Surgical History [...] History rt. heart cath D Addy Stout- [facility] 05/11/16 Hospitalization History Water retention/ [facility] 02/2017 Hospitalization History Observation-[facility] 11/2017 Hospitalization History INFECTION IN LEFT SMALL TOE AND FOOT 11/2018 Hospitalization History [facility] -- ICU -- COPD, SMAL L WOUND ON LEFT FOOT 12/2019 Hospitalization History COPD [facility] [place] 12/2019 Hospitalization History Ankle wound 01/2020 Hospitalization History COVID 11/2020 Hospitalization History A-FIB, CHF, KIDNEY ISSUE S 03/2021 Hospitalization History [facility] 01/2023 Hospitalization History [facility] discha rged 03-27-2023 Hospitalization History [facility] x2 7-2 023 Hospitalization History [facility] 10-2 023 [employer] Other 12-08-2023 History general Narrative - Reported* [...] Medical History [facility] Medical History 04/28/2022 Acute canadian bacon tier elie resp. failure w/hypoxia, COPD excacerbation [facility] Medical History 04/28/2022-Sepsis sec ./ Para influenza PNA multifocal-[facility] Medical History 05/08/2022-Increasing shortness of breath post recent Dx w/covid-19 Medical History 06/13/2022-Severe sep sis to Multifocal PNA, acute on chronic resp. failure w/hypoxia, acute on systolic chronic HF Medical History [facility]- r ight great toe bleeding (not stopping) Medical History pneumonia-[facility] 06-05 Medical History [facility]-7-2023 Medical History [id number]-[facility] Surgical History Cardiac catherization (07/2010) Surgical History AICD insertion (11/2010) Surgical History right sided heart cath - [place] 10/2013 Surgical History appendectomy Surgical History rt [...] Hospitalization History rt. heart cath Rex Stout- [facility] 05/11/16 Hospitalization History Water retention/ [facility] 02/2017 Hospitalization History Observation-[facility] 11/2017 Hospitalization History INFECTION IN LEFT SMALL TOE AND FOOT 11/2018 Hospitalization History [facility] -- ICU -- COPD, SMAL L WOUND ON LEFT FOOT 12/2019 Hospitalization History COPD [facility] [place] 12/2019 Hospitalization History Ankle wound 01/2020 Hospitalization History COVID 11/2020 Hospitalization History A-FIB, CHF, KIDNEY ISSUE S 03/2021 Hospitalization History [facility] 01/2023 Hospitalization History [facility] discha rged 03-27-2023 Hospitalization History [facility] x2 7-2 023 Hospitalization History [facility] 10-2 023 [employer] Other 12-06-2023 History general Narrative - Reported* [...] Medical History [facility] Medical History 04/28/2022 Acute canadian bacon tier elie resp. failure w/hypoxia, COPD excacerbation [facility] Medical History 04/28/2022-Sepsis sec ./ Para influenza PNA multifocal-[facility] Medical History 05/08/2022-Increasing shortness of breath post recent Dx w/covid-19 Medical History 06/13/2022-Severe sep sis to Multifocal PNA, acute on chronic resp. failure w/hypoxia, acute on systolic chronic HF Medical History [facility]- r ight great toe bleeding (not stopping) Medical History pneumonia-[facility] 06-05 Medical History [facility]-7-2023 Medical History [id number]-[facility] Surgical History Cardiac catherization (07/2010) Surgical History [...] History rt. heart cath D Addy Stout- [facility] 05/11/16 Hospitalization History Water retention/ [facility] 02/2017 Hospitalization History Observation-[facility] pital 11/2017 Hospitalization History INFECTION IN LEFT SMALL TOE AND FOOT 11/2018 Hospitalization History [facility] -- ICU -- COPD, SMAL L WOUND ON LEFT FOOT 12/2019 Hospitalization History COPD [facility] [place] 12/2019 Hospitalization History Ankle wound 01/2020 Hospitalization History COVID 11/2020 Hospitalization History A-FIB, CHF, KIDNEY ISSUE S 03/2021 Hospitalization History [facility] 01/2023 Hospitalization History [facility] discha rged 03-27-2023 Hospitalization History [facility] x2 7-2 023 Hospitalization History RSV-[facility] 10-2 023 [employer] [facility] [employer] Other 12-04-2023 Evaluation note* Encounter Date Diagnosis Assessment Notes Treatment Notes Treatment Clinical Notes Oct, Type 2 diabetes mellitus with hyperglycemia (ICD-10 - E11.65) [employer] Other 12-01-2023 Evaluation note* Encounter Date Diagnosis Assessment Notes Treatment Notes Treatment Clinical Notes Oct, Facet arthritis of lumbar region (ICD-10 - M46.96) [employer] Other 12-01-2023 History general Narrative - Reported* [...] Medical History [facility] Medical History 04/28/2022 Acute canadian bacon tier elie resp. failure w/hypoxia, COPD excacerbation [facility] Medical History 04/28/2022-Sepsis sec ./ Para influenza PNA multifocal-[facility] Medical History 05/08/2022-Increasing shortness of breath post recent Dx w/covid-19 Medical History 06/13/2022-Severe sep sis to Multifocal PNA, acute on chronic resp. failure w/hypoxia, acute on systolic chronic HF Medical History [facility]- r ight great toe bleeding (not stopping) Medical History pneumonia-[facility] 06-05 [facility] [facility] Medical History [id number]-[facility] Surgical History Cardiac catherization (07/2010) Surgical History AICD insertion (11/2010) Surgical History right sided heart cath - [place] 10/2013 Surgical History appendectomy Surgical History rt [...] Hospitalization History rt. heart cath Rex Stout- [facility] 05/11/16 Hospitalization History Water retention/ [facility] 02/2017 Hospitalization History [facility] 11/2017 Hospitalization History INFECTION IN LEFT SMALL TOE AND FOOT 11/2018 Hospitalization History [facility] -- ICU -- COPD, SMAL L WOUND ON LEFT FOOT 12/2019 Hospitalization History COPD [facility] [place] 12/2019 Hospitalization History Ankle wound 01/2020 Hospitalization History COVID 11/2020 Hospitalization History A-FIB, CHF, KIDNEY ISSUE S 03/2021 Hospitalization History [facility] 01/2023 Hospitalization History [facility] discha rged 03-27-2023 Hospitalization History [facility] x2 7-2 023 Hospitalization History [facility] 10-2 023 [employer] Other 11-20-2023 Evaluation note* Encounter Date Diagnosis [...] spent on education by Lashell KARIMI, RN [employer] Other 11-16-2023 Evaluation note* Encounter Date Diagnosis Assessment Notes Treatment Notes Treatment Clinical Notes Sep, Type 2 diabetes mellitus with hyperglycemia (ICD-10 - E11.65) Adwoa came in today for download and Evaluation of his Lucas report after calling and stating earlier this week that his BGs have been high and he is out of Basaglar and nearly out of [facility]. He failed to bring his meter or [...] able to help patient improve his glycemia. [employer] Other 11-07-2023 History general Narrative - Reported* [...] Medical History [facility] Medical History 04/28/2022 Acute canadian bacon tier elie resp. failure w/hypoxia, COPD excacerbation [facility] Medical History 04/28/2022-Sepsis sec ./ Para influenza PNA multifocal-[facility] Medical History 05/08/2022-Increasing shortness of breath post recent Dx w/covid-19 Medical History 06/13/2022-Severe sep sis to Multifocal PNA, acute on chronic resp. failure w/hypoxia, acute on systolic chronic HF Medical History [facility]- r ight great toe bleeding (not stopping) Medical History pneumonia-[facility] 06-05 Medical History [facility]-7-2023 Medical History [id number]-[facility] Surgical History Cardiac catherization (07/2010) Surgical History AICD insertion (11/2010) Surgical History right sided heart cath - [place] 10/2013 Surgical History appendectomy Surgical History rt [...] hx [facility] 02/2017 Hospitalization History [facility] 11/2017 Hospitalization History INFECTION IN LEFT SMALL TOE AND FOOT 11/2018 Hospitalization History [facility] -- ICU -- COPD, SMAL L WOUND ON LEFT FOOT 12/2019 Hospitalization History COPD [facility] [place] 12/2019 Hospitalization History Ankle wound 01/2020 Hospitalization History COVID 11/2020 Hospitalization History A-FIB, CHF, KIDNEY ISSUE S 03/2021 Hospitalization History [facility] 01/2023 Hospitalization History [facility] discha rged 03-27-2023 Hospitalization History [facility] x2 7-2 023 Hospitalization History [facility] 10-2 023 [employer] Other 11-03-2023 NoteUT Cardiology - [facility] Subjective Adwoa Porter is a 68 y.o. year old male patient being seen for Follow-up and Congestive Heart Failure Patient Active Problem List Diagnosis Anxiety state Atrial fibrillation (CMS/HCC) Chronic obstructive lung disease (CMS/HCC) Chronic systolic congestive heart failure (CMS/HCC) Conduction disorder of the heart Atherosclerosis of [place] coronary artery of [place] heart without angina pectoris Type 2 diabetes [...] 3 chronic kidney disease (CMS/HCC) Bleeding disorder ([facility]/HCC) Anemia of chronic renal failure Chronic ulcer of great toe of right foot with fat layer exposed (CMS/HCC) Diabetes mellitus ([facility]/HCC) Essential hypertension History of amputation of left great toe ([facility]/HCC) History of amputation of lesser toe of left foot ([facility]/HCC) 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 He was recently admitted to [facility] in August 2023 with acute respiratory failure [...] breath at rest. He recovered [facility] facility but he is now back home. [...] distension. Palpations: Abdomen is (more content not included)...[facility]11-02-2023 Evaluation note* Encounter Date Diagnosis Assessment Notes Treatment Notes Treatment Clinical Notes Sep, Facet arthritis of lumbar region (ICD-10 - M46.96) [employer] Other 11-02-2023 History general Narrative - Reported* [...] Medical History [facility] Medical History 04/28/2022 Acute canadian bacon tier elie resp. failure w/hypoxia, COPD excacerbation [facility] Medical History 04/28/2022-Sepsis sec ./ Para influenza PNA multifocal-[facility] Medical History 05/08/2022-Increasing shortness of breath post recent Dx w/covid-19 Medical History 06/13/2022-Severe sep sis to Multifocal PNA, acute on chronic resp. failure w/hypoxia, acute on systolic chronic HF Medical History [facility]- r ight great toe bleeding (not stopping) Medical History pneumonia-[facility] 06-05 Medical History [facility]-7-2023 Medical History [id number]-[facility] Surgical History Cardiac catherization (07/2010) Surgical History AICD insertion (11/2010) Surgical History right sided heart cath - [place] 10/2013 Surgical History appendectomy Surgical History rt heart cath 05/11/16 Surgical History pacemaker 07/2016 Surgical History SKIN GRAFT-FROM LEFT LEG TO LEF T FOOT 10/2018 Surgical History LEFT SMALL TOE AMPUTATION WITH SOME FOOT BONE 11/2018 Surgical History COL[facility]OSCOPY AND [facility] Surgical History amputation left fifth toe Surgical History Ankle I/D LEFT 01/2020 Surgical History Left heel skin graft 03/29/2020 Surgical History SKIN GRAFT TO LEFT FOOT 03/2020 Surgical History CATARACT REMOVED ON RIGHT EYE Surgical History CATARACT REMOVED FROM LEFT EYE 06/2021 Hospitalization History see surgical hx Hospitalization History rt. heart cath Rex Stout- [facility] 05/11/16 Hospitalization History Water retention/ [facility] 02/2017 Hospitalization History [facility] 11/2017 Hospitalization History INFECTION IN LEFT SMALL TOE AND FOOT 11/2018 Hospitalization History [facility] -- ICU -- COPD, SMAL L WOUND ON LEFT FOOT 12/2019 Hospitalization History COPD [facility] [place] 12/2019 Hospitalization History Ankle wound 01/2020 Hospitalization History COVID 11/2020 Hospitalization History A-FIB, CHF, KIDNEY ISSUE S 03/2021 Hospitalization History [facility] 01/2023 Hospitalization History [facility] discha [facility]ged 03-27-2023 Hospitalization History [facility] x2 7-2 023 Hospitalization History [facility] 10-2 023 [employer] Other 10-31-2023 Evaluation note* Encounter Date Diagnosis [...] (hypertension) (ICD-10 - I10) reasonable today Aug, 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 failure w/hypoxia, COPD excacerbation [facility] Medical History 04/28/2022-Sepsis sec ./ Para influenza PNA multifocal-[facility] Medical History 05/08/2022-Increasing shortness of breath post recent Dx w/covid-19 Medical History 06/13/2022-Severe sep sis to Multifocal PNA, acute on chronic resp. failure w/hypoxia, acute on systolic chronic HF Medical History [facility]- r ight great toe bleeding (not stopping) Medical History pneumonia-[facility] 06-05 Medical History [facility]-7-2023 Medical History [id number]-[facility] Surgical History Cardiac catherization (07/2010) Surgical History AICD insertion (11/2010) Surgical History right sided heart cath - [place] 10/2013 Surgical History appendectomy Surgical History rt [...] Hospitalization History rt. heart cath Rex Stout- [facility] 05/11/16 Hospitalization History Water retention/ [facility] 02/2017 Hospitalization History [facility] 11/2017 Hospitalization History INFECTION IN LEFT SMALL TOE AND FOOT 11/2018 Hospitalization History [facility] -- ICU -- COPD, SMAL L WOUND ON LEFT FOOT 12/2019 Hospitalization History COPD [facility] [place] 12/2019 Hospitalization History Ankle wound 01/2020 Hospitalization History COVID 11/2020 Hospitalization History A-FIB, CHF, KIDNEY ISSUE S 03/2021 Hospitalization History [facility] 01/2023 Hospitalization History [facility] discha rged 03-27-2023 Hospitalization History [facility] x2 7-2 023 Hospitalization History [facility] 10-2 023 [employer] [facility] [employer] Other 10-30-2023 Evaluation note* Encounter Date Diagnosis Assessment Notes Treatment Notes Treatment Clinical Notes Aug, Facet arthritis of lumbar region (ICD-10 - M46.96) [employer] Other 10-13-2023 History general Narrative - Reported* [...] Medical History [facility] Medical History 04/28/2022 Acute canadian bacon tier elie resp. failure w/hypoxia, COPD excacerbation [facility] Medical History 04/28/2022-Sepsis sec ./ Para influenza PNA multifocal-[facility] Medical History 05/08/2022-Increasing shortness of breath post recent Dx w/covid-19 Medical History 06/13/2022-Severe sep sis to Multifocal PNA, acute on chronic resp. failure w/hypoxia, acute on systolic chronic HF Medical History [facility]- r ight great toe bleeding (not stopping) Medical History pneumonia-[facility] 06-05 Medical History [facility]-7-2023 Surgical History Cardiac catherization (07/2010) Surgical History AICD insertion (11/2010) Surgical History right sided heart cath - [place] 10/2013 Surgical History appendectomy Surgical History rt [...] Hospitalization History rt. heart cath Rex Stout- [facility] 05/11/16 Hospitalization History Water retention/ [facility] 02/2017 Hospitalization History [facility] 11/2017 Hospitalization History INFECTION IN LEFT SMALL TOE AND FOOT 11/2018 Hospitalization History [facility] -- ICU -- COPD, SMAL L WOUND ON LEFT FOOT 12/2019 Hospitalization History COPD [facility] [place] 12/2019 Hospitalization History Ankle wound 01/2020 Hospitalization History COVID 11/2020 Hospitalization History A-FIB, CHF, KIDNEY ISSUE S 03/2021 Hospitalization History [facility] 01/2023 Hospitalization History [facility] discha rged 03-27-2023 Hospitalization History [facility] x2 7-2 023 [employer] Other 10-12-2023 History general Narrative - Reported* [...] Medical History [facility] Medical History 04/28/2022 Acute canadian bacon tier elie resp. failure w/hypoxia, COPD excacerbation [facility] Medical History 04/28/2022-Sepsis sec ./ Para influenza PNA multifocal-[facility] Medical History 05/08/2022-Increasing shortness of breath post recent Dx w/covid-19 Medical History 06/13/2022-Severe sep sis to Multifocal PNA, acute on chronic resp. failure w/hypoxia, acute on systolic chronic HF Medical History [facility]- r ight great toe bleeding (not stopping) Medical History pneumonia-[facility] 06-05 Medical History [facility]-7-2023 Surgical History Cardiac catherization (07/2010) Surgical History AICD insertion (11/2010) Surgical History right sided heart cath - [place] 10/2013 Surgical History appendectomy Surgical History rt [...] Hospitalization History rt. heart cath Rex Stout- [facility] 05/11/16 Hospitalization History Water retention/ [facility] 02/2017 Hospitalization History [facility] 11/2017 Hospitalization History INFECTION IN LEFT SMALL TOE AND FOOT 11/2018 Hospitalization History [facility] -- ICU -- COPD, SMAL L WOUND ON LEFT FOOT 12/2019 Hospitalization History COPD [facility] [place] 12/2019 Hospitalization History Ankle wound 01/2020 Hospitalization History COVID 11/2020 Hospitalization History A-FIB, CHF, KIDNEY ISSUE S 03/2021 Hospitalization History [facility] 01/2023 Hospitalization History [facility] discha rged 03-27-2023 Hospitalization History [facility] x2 7-2 023 [employer] Other 10-05-[facility] NotePatient here for follow up [facility] discharge yesterday for HFrEF. His girlfriend called [...] weakness. All other systems reviewed and are negative.[facility] 08-23-2023 NoteCardiovascular Medicine [facility] SUBJECTIVE Chief Complaint Patient presents with Wheezing Hospital Follow-up Adwoa Porter is a 68 y.o. male here for follow-up. Congestive Heart Failure His past medical history is significant for CAD. Coronary Artery Disease His past medical history is significant for CHF. Adwoa Porter is a 67 y.o. 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 Patient here for follow up [facility] discharge yesterday for HFrEF. His girlfriend called the office yesterday when he was being discharged to make us aware that he's still very swollen and SOB. He is down 12# from his office visit last week with Cecile Watson. Patient is c/o wheezing and is requesting something for cough. 08/23/2023 He was recently admitted to [facility] for acute on chronic HFrEF exacerbation and [...] Conduction disorder of the heart Atherosclerosis of [place] coronary artery of [place] heart without angina pectoris Type 2 diabetes [...] Hyperglycemia due to type 2 diabetes mellitus ([facility]/HCC) Past Medical History: Diagnosis Date Anxiety Atrial fibrillation (CMS/HCC) Cardiomyopathy ([facility]/HCC) CHF (congestive heart failure) ([facility]/HCC) Chronic kidney disease COPD (chronic obstructive pulmonary disease) ([facility]/HCC) Coronary artery disease Diabetes mellitus ([facility]/HCC) High cholesterol Hyperlipidemia Hypertension Family History Problem [...] (5' 9 ) Wt (more content not included)...[facility]10-05-2023 Evaluation note* Encounter Date Diagnosis Assessment Notes Treatment Notes Treatment Clinical Notes Aug, Facet arthritis of lumbar region (ICD-10 - M46.96) [employer] Other 09-27-2023 NoteCurrently stable*[facility]09-27-2023 NoteSending for labs today and pt to f/U with Dr Orr as scheduledUnWilson Health09-27-2023 NoteNYHC- III Continue GDMT- ASA, lipitor, coreg, [...] bmp and BNP F/U with nephrology as scheduledUnWilson Health09-27-2023 NoteContinue Coreg- currently stable and no concerning symptomsUnWilson Health09-27-2023 NoteUTP CARDIOLOGY PROGRESS NOTE HPI: Adwoa Porter [...] to afford Farxiga. He was admitted to [facility] last week for hemoptysis. This has subsided. [...] reviewed and are negative. Recent eval in [facility] ED 07/31/23 Visit Vitals BP 121/79 (BP [...] with lunch, and with evening meal. HYDROcodone-acetaminophen ([place]) 5-325 mg tablet Take 1 tablet by [...] Pulmonary: Effort: Pulmonary effo (more content not included)...[facility]09-27-2023 NotePatient here for follow up lasix increase. Dr. Stout increased it to 140mg bid a few days ago. He has taken 3 doses of this so far and feels so much better. He is unable to afford Farxiga. He was admitted to [facility] last week for hemoptysis. This has subsided. [...] weakness. All other systems reviewed and are negative.[facility] 08-03-2023 History general Narrative - Reported* Type [...] Medical History [facility] Medical History 04/28/2022 Acute canadian bacon tier elie resp. failure w/hypoxia, COPD excacerbation [facility] Medical History 04/28/2022-Sepsis sec ./ Para influenza PNA multifocal-[facility] Medical History 05/08/2022-Increasing shortness of breath post recent Dx w/covid-19 Medical History 06/13/2022-Severe sep sis to Multifocal PNA, acute on chronic resp. failure w/hypoxia, acute on systolic chronic HF Medical History [facility]- r ight great toe bleeding (not stopping) Medical History pneumonia-[facility] - Medical History [facility]-7-2023 Surgical History Cardiac catherization (07/2010) Surgical History AICD insertion (11/2010) Surgical History right sided heart cath - [place] 10/2013 Surgical History appendectomy Surgical History rt [...] Hospitalization History rt. heart cath Rex Stout- [facility] 05/11/16 Hospitalization History Water retention/ [facility] 02/2017 Hospitalization History [facility] 11/2017 Hospitalization History INFECTION IN LEFT SMALL TOE AND FOOT 11/2018 Hospitalization History [facility] -- ICU -- COPD, SMAL L WOUND ON LEFT FOOT 12/2019 Hospitalization History COPD [facility] [place] 12/2019 Hospitalization History Ankle wound 01/2020 Hospitalization History COVID 11/2020 Hospitalization History A-FIB, CHF, KIDNEY ISSUE S 03/2021 Hospitalization History [facility] 01/2023 Hospitalization History [facility] discha rged 03-27-2023 Hospitalization History [facility] x2 7-2 023 [employer] Other 09-08-2023 Evaluation note* Encounter Date Diagnosis Assessment Notes Treatment Notes Treatment Clinical Notes Jul, Acute cough (ICD-10 - R05.1) [employer] Other 09-08-2023 History general Narrative - Reported* [...] Medical History [facility] Medical History 04/28/2022 Acute canadian bacon tier elie resp. failure w/hypoxia, COPD excacerbation [facility] Medical History 04/28/2022-Sepsis sec ./ Para influenza PNA multifocal-[facility] Medical History 05/08/2022-Increasing shortness of breath post recent Dx w/covid-19 Medical History 06/13/2022-Severe sep sis to Multifocal PNA, acute on chronic resp. failure w/hypoxia, acute on systolic chronic HF Medical History [facility]- r ight great toe bleeding (not stopping) Medical History pneumonia-[facility] 06-05 Medical History [facility]-7-2023 Surgical History Cardiac catherization (07/2010) Surgical [...] hx [facility] 02/2017 Hospitalization History [facility] 11/2017 Hospitalization History INFECTION IN LEFT SMALL TOE AND FOOT 11/2018 Hospitalization History [facility] -- ICU -- COPD, SMAL L WOUND ON LEFT FOOT 12/2019 Hospitalization History COPD [facility] [place] 12/2019 Hospitalization History Ankle wound 01/2020 Hospitalization History COVID 11/2020 Hospitalization History A-FIB, CHF, KIDNEY ISSUE S 03/2021 Hospitalization History [facility] 01/2023 Hospitalization History [facility] discha rged 03-27-2023 Hospitalization History [facility] x2 7-2 023 [employer] Other 09-01-2023 Evaluation note* Encounter Date Diagnosis Assessment Notes Treatment Notes Treatment Clinical Notes Jul, Facet arthritis of lumbar region (ICD-10 - M46.96) [employer] Other 09-01-2023 History general Narrative - Reported* [...] Medical History [facility] Medical History 04/28/2022 Acute canadian bacon tier elie resp. failure w/hypoxia, COPD excacerbation [facility] Medical History 04/28/2022-Sepsis sec ./ Para influenza PNA multifocal-[facility] Medical History 05/08/2022-Increasing shortness of breath post recent Dx w/covid-19 Medical History 06/13/2022-Severe sep sis to Multifocal PNA, acute on chronic resp. failure w/hypoxia, acute on systolic chronic HF Medical History [facility]- r ight great toe bleeding (not stopping) Medical History pneumonia-[facility] 06-05 Medical History [facility]-7-2023 Surgical History Cardiac catherization (07/2010) Surgical History AICD insertion (11/2010) Surgical History right sided heart cath - [place] 10/2013 Surgical History appendectomy Surgical History rt heart cath 05/11/16 Surgical History pacemaker 07/2016 Surgical History SKIN GRAFT-FROM LEFT LEG TO LEF T FOOT 10/2018 Surgical History LEFT SMALL TOE AMPUTATION WITH SOME FOOT BONE 11/2018 Surgical History [facility]OSCOPY AND [facility]GD [facility] Surgical History amputation left fifth toe Surgical History Ankle I/D LEFT 01/2020 Surgical History Left heel skin graft 03/29/2020 Surgical History SKIN GRAFT TO LEFT FOOT 03/2020 Surgical History CATARACT REMOVED ON RIGHT EYE Surgical History CATARACT REMOVED FROM LEFT EYE 06/2021 Hospitalization History see surgical hx Hospitalization History rt. heart cath Rex Stout- [facility] 05/11/16 Hospitalization History Water retention/ [facility] 02/2017 Hospitalization History [facility] 11/2017 Hospitalization History INFECTION IN LEFT SMALL TOE AND FOOT 11/2018 Hospitalization History [facility] -- ICU -- COPD, SMAL L WOUND ON LEFT FOOT 12/2019 Hospitalization History COPD [facility] [place] 12/2019 Hospitalization History Ankle wound 01/2020 Hospitalization History COVID 11/2020 Hospitalization History A-FIB, CHF, KIDNEY ISSUE S 03/2021 Hospitalization History [facility] 01/2023 Hospitalization History [facility] discha [facility]ged 03-27-2023 Hospitalization History [facility] x2 7-2 023 [employer] Other 08-31-2023 Evaluation note* Encounter Date Diagnosis Assessment Notes Treatment Notes Treatment Clinical Notes Jun, Chronic systolic congestive heart failure (ICD-10 - I50.22) [employer] Other 08-24-2023 History general Narrative - Reported* [...] Medical History [facility] Medical History 04/28/2022 Acute canadian bacon tier elie resp. failure w/hypoxia, COPD excacerbation [facility] Medical History 04/28/2022-Sepsis sec ./ Para influenza PNA multifocal-[facility] Medical History 05/08/2022-Increasing shortness of breath post recent Dx w/covid-19 Medical History 06/13/2022-Severe sep sis to Multifocal PNA, acute on chronic resp. failure w/hypoxia, acute on systolic chronic HF Medical History [facility]- r ight great toe bleeding (not stopping) Medical History pneumonia-[facility] 06-05 Medical History [facility]-7-2023 Surgical History Cardiac catherization (07/2010) Surgical [...] Hospitalization History rt. heart cath Rex Stout- [facility] 05/11/16 Hospitalization History Water retention/ [facility] 02/2017 Hospitalization History Observation-[facility] pital 11/2017 Hospitalization History INFECTION IN LEFT SMALL TOE AND FOOT 11/2018 Hospitalization History [facility] -- ICU -- COPD, SMAL L WOUND ON LEFT FOOT 12/2019 Hospitalization History COPD [facility] [place] 12/2019 Hospitalization History Ankle wound 01/2020 Hospitalization History COVID 11/2020 Hospitalization History A-FIB, CHF, KIDNEY ISSUE S 03/2021 Hospitalization History [facility] 01/2023 Hospitalization History [facility] discha rged 03-27-2023 Hospitalization History [facility] [phone] [employer] Other 08-11-2023 Evaluation note* Encounter Date Diagnosis [...] of this is related to diabetic neuropathy [employer] Other 08-11-2023 Evaluation note* Encounter Date Diagnosis [...] (hypertension) (ICD-10 - I10) reasonable today Jun, 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 failure w/hypoxia, COPD excacerbation [facility] Medical History 04/28/2022-Sepsis sec ./ Para influenza PNA multifocal-[facility] Medical History 05/08/2022-Increasing shortness of breath post recent Dx w/covid-19 Medical History 06/13/2022-Severe sep sis to Multifocal PNA, acute on chronic resp. failure w/hypoxia, acute on systolic chronic HF Medical History [facility]- r ight great toe bleeding (not stopping) Medical History pneumonia-[facility] 06-05 Medical History [facility]-7-2023 Surgical History Cardiac catherization (07/2010) Surgical [...] Hospitalization History rt. heart cath Rex Stout- [facility] 05/11/16 Hospitalization History Water retention/ [facility] 02/2017 Hospitalization History [facility] 11/2017 Hospitalization History INFECTION IN LEFT SMALL TOE AND FOOT 11/2018 Hospitalization History [facility] -- ICU -- COPD, SMAL L WOUND ON LEFT FOOT 12/2019 Hospitalization History COPD [facility] [place] 12/2019 Hospitalization History Ankle wound 01/2020 Hospitalization History COVID 11/2020 Hospitalization History A-FIB, CHF, KIDNEY ISSUE S 03/2021 Hospitalization History [facility] 01/2023 Hospitalization History [facility] discha rged 03-27-2023 Hospitalization History [facility] [phone] [employer] Other 07-31-2023 Evaluation note* Encounter Date Diagnosis [...] not be able to stay at home [employer] Other 07-31-2023 History general Narrative - Reported* [...] Medical History [facility] Medical History 04/28/2022 Acute canadian bacon tier elie resp. failure w/hypoxia, COPD excacerbation [facility] Medical History 04/28/2022-Sepsis sec ./ Para influenza PNA multifocal-[facility] Medical History 05/08/2022-Increasing shortness of breath post recent Dx w/covid-19 Medical History 06/13/2022-Severe sep sis to Multifocal PNA, acute on chronic resp. failure w/hypoxia, acute on systolic chronic HF Medical History [facility]- r ight great toe bleeding (not [...] Hospitalization History rt. heart cath Rex Stout- [facility] 05/11/16 Hospitalization History Water retention/ [facility] 02/2017 Hospitalization History [facility] 11/2017 Hospitalization History INFECTION IN LEFT SMALL TOE AND FOOT 11/2018 Hospitalization History [facility] -- ICU -- COPD, SMAL L WOUND ON LEFT FOOT 12/2019 Hospitalization History COPD [facility] [place] 12/2019 Hospitalization History Ankle wound 01/2020 Hospitalization History COVID 11/2020 Hospitalization History A-FIB, CHF, KIDNEY ISSUE S 03/2021 Hospitalization History [facility] 01/2023 Hospitalization History [facility] discha rged 03-27-2023 [employer] Other 07-18-2023 Note[facility] Cardiology - [facility] Subjective Adwoa Porter is a 67 y.o. year old male patient being seen for Follow-up Patient Active Problem List Diagnosis Anxiety state Atrial fibrillation (CMS/HCC) Chronic obstructive lung disease (CMS/HCC) Chronic systolic congestive heart failure ([facility]/HCC) Conduction disorder of the heart Atherosclerosis of [place] coronary artery of [place] heart without angina pectoris Type 2 diabetes [...] ISAK on CPAP PVD (peripheral vascular disease) ([facility]/HCC) Osteomyelitis of left foot ([facility]/HCC) Open wound of finger Cellulitis of left upper extremity Abdominal tenderness Acute on chronic respiratory failure ([facility]) Benign prostatic hyperplasia with urinary obstruction Cardiomyopathy, ischemic Former smoker Heart murmur Incomplete emptying of bladder Increased frequency of urination Nocturia Urethral stricture Urge incontinence of urine Urinary urgency Type 2 diabetes mellitus without complication ([facility]/HCC) Family History Problem Relation Name Age of Onset Diabetes Mother Hypertension Mother Coronary artery disease Mother Social History Tobacco Use Smoking status: Every Day Types: Cigarettes Passive exposure: Never Smokeless tobacco: Never Vaping Use Vaping Use: Never used Substance Use Topics Alcohol use: Never Drug use: Not Currently HPI Adwoa is seen in follow-up after recent admission to the [facility] with decompensated heart failure. He underwent diuresis [...] is significant for coronary artery disease with LEATHER HEEL BREASTER of the RCA and mild to moderate [...] with us he was admitted to the [facility] twice with decompensated heart failure. Last admission [...] Pulmonary: Effort: Pulmonary e (more content not included)...[facility]06-30-2023 Evaluation note* Encounter Date Diagnosis Assessment Notes Treatment Notes Treatment Clinical Notes Apr, Facet arthritis of lumbar region (ICD-10 - M46.96) [employer] Other 06-30-2023 History general Narrative - Reported* [...] Medical History [facility] Medical History 04/28/2022 Acute canadian bacon tier elie resp. failure w/hypoxia, COPD excacerbation [facility] Medical History 04/28/2022-Sepsis sec ./ Para influenza PNA multifocal-[facility] Medical History 05/08/2022-Increasing shortness of breath post recent Dx w/covid-19 Medical History 06/13/2022-Severe sep sis to Multifocal PNA, acute on chronic resp. failure w/hypoxia, acute on systolic chronic HF Medical History [facility]- r ight great toe bleeding (not [...] Hospitalization History rt. heart cath Rex Stout- [facility] 05/11/16 Hospitalization History Water retention/ [facility] 02/2017 Hospitalization History [facility] 11/2017 Hospitalization History INFECTION IN LEFT SMALL TOE AND FOOT 11/2018 Hospitalization History [facility] -- ICU -- COPD, SMAL L WOUND ON LEFT FOOT 12/2019 Hospitalization History COPD [facility] [place] 12/2019 Hospitalization History Ankle wound 01/2020 Hospitalization History COVID 11/2020 Hospitalization History A-FIB, CHF, KIDNEY ISSUE S 03/2021 Hospitalization History [facility] 01/2023 Hospitalization History [facility] discha rged 03-27-2023 [employer] Other 2023 History general Narrative - Reported* [...] Medical History [facility] Medical History 04/28/2022 Acute canadian bacon tier elie resp. failure w/hypoxia, COPD excacerbation [facility] Medical History 04/28/2022-Sepsis sec ./ Para influenza PNA multifocal-[facility] Medical History 05/08/2022-Increasing shortness of breath post recent Dx w/covid-19 Medical History 06/13/2022-Severe sep sis to Multifocal PNA, acute on chronic resp. failure w/hypoxia, acute on systolic chronic HF Medical History [facility]- r ight great toe bleeding (not [...] Hospitalization History rt. heart cath Rex Stout- [facility] 05/11/16 Hospitalization History Water retention/ [facility] 02/2017 Hospitalization History [facility] pital 11/2017 Hospitalization History INFECTION IN LEFT SMALL TOE AND FOOT 11/2018 Hospitalization History [facility] -- ICU -- COPD, SMAL L WOUND ON LEFT FOOT 12/2019 Hospitalization History COPD [facility] [place] 12/2019 Hospitalization History Ankle wound 01/2020 Hospitalization History COVID 11/2020 Hospitalization History A-FIB, CHF, KIDNEY ISSUE S 03/2021 Hospitalization History [facility] 01/2023 Hospitalization History [facility] discha rged 03-27-2023 [employer] Other 06-14-2023 Evaluation note* Encounter Date Diagnosis [...] sensors on. He was given 6 grif teacher adventure education to assist him with wearing the device. 45 minutes were spent evaluating the patient's report and discussing its findings with the patient by Shaw Rondon RN, [facility]. [employer] Other 06-01-2023 Evaluation note* Encounter Date Diagnosis [...] leukocytosis and currently follows with a hematology. [employer] Other 06-01-2023 Evaluation note* Encounter Date Diagnosis [...] understanding and is agreeable with treatment plan. [employer] Other 05-31-2023 Evaluation note* Encounter Date Diagnosis Assessment Notes Treatment Notes Treatment Clinical Notes March, Facet arthritis of lumbar region (ICD-10 - M46.96) [employer] Other 05-15-2023 History general Narrative - Reported* [...] Medical History [facility] Medical History 04/28/2022 Acute canadian bacon tier elie resp. failure w/hypoxia, COPD excacerbation [facility] Medical History 04/28/2022-Sepsis sec ./ Para influenza PNA multifocal-[facility] Medical History 05/08/2022-Increasing shortness of breath [...] Hospitalization History rt. heart cath Rex Stout- [facility] 05/11/16 Hospitalization History Water retention/ [facility] 02/2017 Hospitalization [facility] 11[facility]2017 Hospitalization History INFECTION IN LEFT SMALL TOE AND FOOT 11/2018 Hospitalization History [facility] -- ICU -- COPD, SMAL L WOUND ON LEFT FOOT 12/2019 Hospitalization History COPD [facility] [place] 12/2019 Hospitalization History Ankle wound 01/2020 Hospitalization History COVID 11/2020 Hospitalization History A-FIB, CHF, KIDNEY ISSUE S 03/2021 Hospitalization History [facility] 01/2023 [employer] Other 05-03-2023 NoteCardiology Clinic Note Subjective Adwoa [...] Conduction disorder of the heart Atherosclerosis of [place] coronary artery of [place] heart without angina pectoris Type 2 diabetes [...] vascular disease) (CMS/HCC) Osteomyelitis of left foot ([facility]) Open wound of finger Cellulitis of left upper extremity Abdominal tenderness Acute on chronic respiratory failure ([facility]) Benign prostatic hyperplasia with urinary [...] in follow-up after recent admission to the [facility] with decompensated heart failure. He underwent diuresis [...] is significant for coronary artery disease with LEATHER HEEL BREASTER of the RCA and mild to moderate [...] tablet, Rfl: 2 digoxin (more content not included)...[facility] 03-21-2023 NotePatient here for 6 week follow [...] weakness. All other systems reviewed and are negative.[facility] 03-21-2023 Evaluation note* Encounter Date Diagnosis Assessment [...] and see if this helps his mobility [employer] Other 05-03-2023 History general Narrative - Reported* [...] Medical History [facility] Medical History 04/28/2022 Acute canadian bacon tier elie resp. failure w/hypoxia, COPD excacerbation [facility] Medical History 04/28/2022-Sepsis sec ./ Para influenza PNA multifocal-[facility] Medical History 05/08/2022-Increasing shortness of breath [...] Hospitalization History rt. heart cath Rex Stout- [facility] 05/11/16 Hospitalization History Water retention/ [facility] 02/2017 Hospitalization History [facility]i 11/2017 Hospitalization History INFECTION IN LEFT SMALL TOE AND FOOT 11/2018 Hospitalization History [facility] -- ICU -- COPD, SMAL L WOUND ON LEFT FOOT 12/2019 Hospitalization History COPD [facility] [place] 12/2019 Hospitalization History Ankle wound 01/2020 Hospitalization History COVID 11/2020 Hospitalization History A-FIB, CHF, KIDNEY ISSUE S 03/2021 Hospitalization History [facility] 01/2023 [employer] [facility] [employer] Other 05-01-2023 Evaluation note* Encounter Date Diagnosis Assessment Notes Treatment Notes Treatment Clinical Notes March, Facet arthritis of lumbar region (ICD-10 - M46.96) [employer] Other 05-01-2023 History general Narrative - Reported* [...] Medical History [facility] Medical History 04/28/2022 Acute canadian bacon tier elie resp. failure w/hypoxia, COPD excacerbation [facility] Medical History 04/28/2022-Sepsis sec ./ Para influenza PNA multifocal-[facility] Medical History 05/08/2022-Increasing shortness of breath [...] Hospitalization History rt. heart cath Rex Stout- [facility] 05/11/16 Hospitalization History Water retention/ [facility] 02/2017 Hospitalization History [facility] 11/2017 Hospitalization History INFECTION IN LEFT SMALL TOE AND FOOT 11/2018 Hospitalization History [facility] -- ICU -- COPD, SMAL L WOUND ON LEFT FOOT 12/2019 Hospitalization History COPD [facility] [place] 12/2019 Hospitalization History Ankle wound 01/2020 Hospitalization History COVID 11/2020 Hospitalization History A-FIB, CHF, KIDNEY ISSUE S 03/2021 Hospitalization History [facility] 01/2023 [employer] Other 04-12-2023 History general Narrative - Reported* [...] Medical History [facility] Medical History 04/28/2022 Acute canadian bacon tier elie resp. failure w/hypoxia, COPD excacerbation [facility] Medical History 04/28/2022-Sepsis sec ./ Para influenza PNA multifocal-[facility] Medical History 05/08/2022-Increasing shortness of breath [...] Hospitalization History rt. heart cath Rex Stout- [facility] 05/11/16 Hospitalization History Water retention/ [facility] 02/2017 Hospitalization History [facility] 11/2017 Hospitalization History INFECTION IN LEFT SMALL TOE AND FOOT 11/2018 Hospitalization History [facility] -- ICU -- COPD, SMAL L WOUND ON LEFT FOOT 12/2019 Hospitalization History COPD [facility] [place] 12/2019 Hospitalization History Ankle wound 01/2020 Hospitalization History COVID 11/2020 Hospitalization History A-FIB, CHF, KIDNEY ISSUE S 03/2021 Hospitalization History [facility] 01/2023 [employer] Other 04-11-2023 History general Narrative - Reported* [...] Medical History [facility] Medical History 04/28/2022 Acute canadian bacon tier elie resp. failure w/hypoxia, COPD excacerbation [facility] Medical History 04/28/2022-Sepsis sec ./ Para influenza PNA multifocal-[facility] Medical History 05/08/2022-Increasing shortness of breath [...] Hospitalization History rt. heart cath Rex Stout- [facility] 05/11/16 Hospitalization History Water retention/ [facility] 02/2017 Hospitalization History [facility] 11/2017 Hospitalization History INFECTION IN LEFT SMALL TOE AND FOOT 11/2018 Hospitalization History [facility] -- ICU -- COPD, SMAL L WOUND ON LEFT FOOT 12/2019 Hospitalization History COPD [facility] [place] 12/2019 Hospitalization History Ankle wound 01/2020 Hospitalization History COVID 11/2020 Hospitalization History A-FIB, CHF, KIDNEY ISSUE S 03/2021 Hospitalization History [facility] 01/2023 [employer] Other 04-05-2023 Evaluation note* Encounter Date Diagnosis [...] - N18.30) Feb, Hypokalemia (ICD-10 - E87.6) [employer] Other 03-24-2023 Evaluation note* Encounter Date Diagnosis [...] failure so a printed prescription was provided [employer] Other 03-13-2023 [facility] - [facility] Subjective Adwoa Porter is a 67 y.o. year old male patient being seen for follow up [facility] for CHF. He is down 30# since last office visit on 01/05/2023. He is feeling much better since discharge. He is now taking metolazone once a week. Bumex was switched to furosemide. Patient Active Problem List Diagnosis Anxiety state Atrial fibrillation (CMS/HCC) Chronic obstructive lung disease (CMS/HCC) Chronic systolic congestive heart failure (CMS/HCC) Conduction disorder of the heart Atherosclerosis of [place] coronary artery of [place] heart without angina pectoris Type 2 diabetes [...] in follow-up after recent admission to the [facility] with decompensated heart failure. He underwent diuresis [...] is significant for coronary artery disease with LEATHER HEEL BREASTER of the RCA and mild to moderate [...] Reactions Gabriela Inhibitors Medicatio (more content not included)...[facility] 01-17-2023 Evaluation note* Encounter Date Diagnosis Assessment [...] - M46.96) Continue current medication, OARRS reviewed [employer] Other 02-28-2023 Evaluation note* Encounter Date Diagnosis Assessment Notes Treatment Notes Treatment Clinical Notes Dec, Lumbar and sacral arthritis (ICD-10 - M48.9) [employer] Other 02-24-2023 History general Narrative - Reported* [...] Medical History [facility] Medical History 04/28/2022 Acute canadian bacon tier elie resp. failure w/hypoxia, COPD excacerbation [facility] Medical History 04/28/2022-Sepsis sec ./ Para influenza PNA multifocal-[facility] Medical History 05/08/2022-Increasing shortness of breath [...] BONE 11/2018 Surgical History COLONOSCOPY AND EGD [facility] Surgical History amputation left fifth toe Surgical History Ankle I/D LEFT 01/2020 Surgical History Left heel skin graft 03/29/2020 Surgical History SKIN GRAFT TO LEFT FOOT 03/2020 Surgical History CATARACT REMOVED ON RIGHT EYE Surgical History CATARACT REMOVED FROM LEFT EYE 06/2021 Hospitalization History see surgical hx Hospitalization History rt. heart cath Rex Stout- [facility] 05/11/16 Hospitalization History Water retention/ [facility] 02/2017 Hospitalization History [facility] 11/2017 Hospitalization History INFECTION IN LEFT SMALL TOE AND FOOT 11/2018 Hospitalization History [facility] -- ICU -- COPD, SMAL L WOUND ON LEFT FOOT 12/2019 Hospitalization History COPD [facility] [place] 12/2019 Hospitalization History Ankle wound 01/2020 Hospitalization History COVID 11/2020 Hospitalization History A-FIB, CHF, KIDNEY ISSUE S 03/2021 [employer] Other 02-23-2023 History general Narrative - Reported* [...] Medical History [facility] Medical History 04/28/2022 Acute canadian bacon tier elie resp. failure w/hypoxia, COPD excacerbation [facility] Medical History 04/28/2022-Sepsis sec ./ Para influenza PNA multifocal-[facility] Medical History 05/08/2022-Increasing shortness of breath [...] Hospitalization History rt. heart cath Rex Stout- [facility] 05/11/16 Hospitalization History Water retention/ [facility] 02/2017 Hospitalization History [facility] 11/2017 Hospitalization History INFECTION IN LEFT SMALL TOE AND FOOT 11/2018 Hospitalization History [facility] -- ICU -- COPD, SMAL L WOUND ON LEFT FOOT 12/2019 Hospitalization History COPD [facility] [place] 12/2019 Hospitalization History Ankle wound 01/2020 Hospitalization History COVID 11/2020 Hospitalization History A-FIB, CHF, KIDNEY ISSUE S 03/2021 [employer] Other 02-18-2023 History general Narrative - Reported* [...] Medical History [facility] Medical History 04/28/2022 Acute canadian bacon tier elie resp. failure w/hypoxia, COPD excacerbation [facility] Medical History 04/28/2022-Sepsis sec ./ Para influenza PNA multifocal-[facility] Medical History 05/08/2022-Increasing shortness of breath post recent Dx w/covid-19 Medical History 06/13/2022-Severe sep sis to Multifocal PNA, acute on chronic resp. failure w/hypoxia, acute on systolic chronic HF Surgical History Cardiac catherization (07/2010) Surgical History AICD insertion (11/2010) Surgical History right sided heart cath - [place] 10/2013 Surgical History appendectomy Surgical History rt [...] Hospitalization History rt. heart cath Rex Stout- [facility] 05/11/16 Hospitalization History Water retention/ [facility] 02/2017 Hospitalization History [facility] 11/2017 Hospitalization History INFECTION IN LEFT SMALL TOE AND FOOT 11/2018 Hospitalization History [facility] -- ICU -- COPD, SMAL L WOUND ON LEFT FOOT 12/2019 Hospitalization History COPD [facility] [place] 12/2019 Hospitalization History Ankle wound 01/2020 Hospitalization History COVID 11/2020 Hospitalization History A-FIB, CHF, KIDNEY ISSUE S 03/2021 [employer] Other 02-17-2023 NotePatient here for 1 week follow up and follow up [facility] ED for LE edema and SOB. He [...] healing. 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 Pt evaluated at [facility] 11/15/22 for follow up hospitalizations at [facility]. He has been admitted 10/18-10/24 and [...] Problem List Diagnosis Anxiety state Atrial fibrillation ([facility]) Chronic obstructive lung disease ([facility]) Chronic systolic congestive heart failure ([facility]) Conduction disorder of the heart Atherosclerosis of [place] coronary artery of [place] heart without angina pectoris Type 2 diabetes mellitus with diabetic peripheral angiopathy without gangrene, with long-term current use of insulin ([facility]) Dyspnea Mixed hyperlipidemia Implantable cardioverter-defibrillator (ICD) in situ Obesity Palpitations Paroxysmal ventricular tachycardia Raised prostate specific antigen Renal function test abnormal Uncontrolled type 2 diabetes mellitus Upper respiratory infection Stage 3b chronic kidney disease ([facility]) ISAK on CPAP PVD (peripheral vascular disease) ([facility]) Osteomyelitis of left foot ([facility]) Open wound of finger Cellulitis of left upper extremity Abdominal tenderness Acute on chronic respiratory failure ([facility]) Benign prostatic hyperplasia with urinary obstruction Cardiomyopathy, ischemic Former smoker Heart murmur Incomplete emptying of bladder Increased frequency of urination Nocturia Urethral stricture Urge incontinence of urine Urinary urgency Past Medical History: Diagnosis Date Anxiety Atrial fibrillation ([facility]) Cardiomyopathy ([facility]/H[facility]) CHF (congestive heart failure) ([facility]) Chronic kidney disease COPD (chronic obstructive pulmonary disease) ([facility]) Coronary artery disease Diabetes mellitus ([facility]) High cholesterol Hyperlipidemia Hypertension Family [...] Take 1 tablet (more content not included)... [facility]02-13-2023 History general Narrative - Reported* Type Description [...] Medical History VERTIGO Medical History 04/28/2022 Acute canadian bacon tier elie resp. failure w/hypoxia, COPD excacerbation [facility] Medical History 04/28/2022-Sepsis sec ./ Para influenza PNA multifocal-[facility] Medical History 05/08/2022-Increasing shortness of breath [...] Hospitalization History rt. heart cath Rex Stout- [facility] 05/11/16 Hospitalization History Water retention/ [facility] 02/2017 Hospitalization History [facility] 11/2017 Hospitalization History INFECTION IN LEFT SMALL TOE AND FOOT 11/2018 Hospitalization History [facility] -- ICU -- COPD, SMAL L WOUND ON LEFT FOOT 12/2019 Hospitalization History COPD [facility] [place] 12/2019 Hospitalization History Ankle wound 01/2020 Hospitalization History COVID 11/2020 Hospitalization History A-FIB, CHF, KIDNEY ISSUE S 03/2021 [employer] Other 02-12-2023 History general Narrative - Reported* [...] Medical History VERTIGO Medical History 04/28/2022 Acute canadian bacon tier elie resp. failure w/hypoxia, COPD excacerbation [facility] Medical History 04/28/2022-Sepsis sec ./ Para influenza PNA multifocal-[facility] Medical History 05/08/2022-Increasing shortness of breath [...] Hospitalization History rt. heart cath Rex Stout- [facility] 05/11/16 Hospitalization History Water retention/ [facility] 02/2017 Hospitalization History [facility] 11/2017 Hospitalization History INFECTION IN LEFT SMALL TOE AND FOOT 11/2018 Hospitalization History [facility] -- ICU -- COPD, SMAL L WOUND ON LEFT FOOT 12/2019 Hospitalization History COPD [facility] [place] 12/2019 Hospitalization History Ankle wound 01/2020 Hospitalization History COVID 11/2020 Hospitalization History A-FIB, CHF, KIDNEY ISSUE S 03/2021 [employer] Other 02-07-2023 NoteCardiovascular Medicine [facility] SUBJECTIVE Chief Complaint Patient presents with Congestive Heart Failure Adwoa Porter is a 67 y.o. male here for follow-up. HPI Adwoa Porter is a 67 y.o. 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 Pt evaluated at [facility] 11/15/22 for follow up hospitalizations at [facility]. He has been admitted 10/18-10/24 and [...] Conduction disorder of the heart Atherosclerosis of [place] coronary artery of [place] heart without angina pectoris Type 2 diabetes mellitus with diabetic peripheral angiopathy without gangrene, with long-term current use of insulin (CMS/HCC) Dyspnea Mixed hyperlipidemia Implantable cardioverter-defibrillator (ICD) in situ Obesity Palpitations Paroxysmal ventricular tachycardia Raised prostate specific antigen Renal function test abnormal Uncontrolled type 2 diabetes mellitus Upper respiratory infection Stage 3b chronic kidney disease (CMS/HCC) ISAK on CPAP PVD (peripheral vascular disease) ([facility]/HCC) Osteomyelitis of left foot (CMS/HCC) Open wound [...] kidney disease COPD (chronic obstructive pulmonary disease) (CMS/HCC) Coronary artery disease Diabetes mellitus (CMS/HCC) High cholesterol Hyperlipidemia Hypertension Family History Problem [...] mouth in the morning (more content not included)...[facility]-07-2023 Note Patient here for 3 week follow [...] healing. All other systems reviewed and are negative.[facility] 12-12-2022 Evaluation note* Encounter Date Diagnosis Assessment [...] Shaw Rondon RN, [facility]. [place] [facility] Other 01-23-2023 Reason for referral (narrative)* Reason 12/11/22 @ Irvin gonzalez to lopez per patient request Diagnosis 1 COPD (chronic obstru ctive pulmonary disease) (J44.9) Diagnosis 2 Athscl heart disease of [place] coronary artery w/o ang pctrs (I25.10) Diagnosis 3 Unspecified systolic (congestive) heart failure (I50.20) Referral Organization [facility] [address] Referring Provider First Name Vinnie Referring Provider Last Name Terry Referring Provider Specialty Family Prac yamil Referred Organization [facility] Referred Address [address] [place],[address] Referred Provider Specialty Hospice and Palliative Medicine Referral Priority Routine Referral Appointment Date 2022-12-11 General Notes Doris Modi 09:13:40 AM >referral received and faxed. appt scheduled for 11:00am today. Doris Modi Marlys 12/13/2022 12:20:16 PM >faxed letter to obtain consult note Doris Modi 12/14/2022 07:21:24 AM >[facility], she stated they saw pt, however; he told them he was not ready for comfort care and therefore did not sign on with hospice. Closing referral [employer] Other 01-23-2023 NoteUTP CARDIOLOGY TELEMEDECINE PROGRESS NOTE [facility] Adwoa Porter is a 67 y.o. male here for HfrEF evaluated by telemedicine visit. He lives in [place], [place]. HPI Pt evaluated at [facility] 11/15/22 for follow up hospitalizations at [facility]. He has been admitted 10/18-10/24 and [...] with lunch, and with evening meal. HYDROcodone-acetaminophen ([place]) 5-325 mg tablet Take 1 tablet by [...] CO2 27 11/11/2022 06 (more content not included)...[facility]01-13-2023 NoteUT Cardiology Note [facility] Reason for visit: HF close follow [...] male here to follow up hospitalization at [facility]. He has been admitted 10/18-10/24 and [...] chest pain. He had labs done in [place] 2 days ago. Discharge Summary from [facility]: 67-year-old male came to hospital for [...] ventricle is severely en (more content not included)...[facility]12-27-2022 Evaluation note* Encounter Date Diagnosis Assessment Notes Treatment Notes Treatment Clinical Notes Oct, Lumbar and sacral arthritis (ICD-10 - M48.9) [employer] Other 12-20-2022 Evaluation note* Encounter Date Diagnosis [...] describing redundancies from hospitalization clarified. Discharged on , at home restarted Basaglar 60 units in a.m. and 64 units in p.m. as well as Humalog 34 units with meals. Significant low blood sugars noted also discharged on Farxiga and Jardiance had multiple days with both medications. We [...] with diabetic education in 4 weeks and pa with 8 weeks to assure mitigation of [...] and [employer]ck handout on hypoglycemia and treament. [employer] Other 11-21-2022 Evaluation note* Encounter Date Diagnosis Assessment Notes Treatment Notes Treatment Clinical Notes Sep, Lumbar and sacral arthritis (ICD-10 - M48.9) [employer] Other 11-17-2022 History general Narrative - Reported* [...] Medical History VERTIGO Medical History 04/28/2022 Acute canadian bacon tier elie resp. failure w/hypoxia, COPD excacerbation [facility] Medical History 04/28/2022-Sepsis sec ./ Para influenza PNA multifocal-[facility] Medical History 05/08/2022-Increasing shortness of breath [...] Hospitalization History rt. heart cath Rex Stout- [facility] 05/11/16 Hospitalization History Water retention/ [facility] 02/2017 Hospital[facility]2017 Hospitalization History INFECTION IN LEFT SMALL TOE AND FOOT 11/2018 Hospitalization History [facility] -- ICU -- COPD, SMAL L WOUND ON LEFT FOOT 12/2019 Hospitalization History COPD [facility] [place] 12/2019 Hospitalization History Ankle wound 01/2020 Hospitalization History COVID 11/2020 Hospitalization History A-FIB, CHF, KIDNEY ISSUE S 03/2021 [employer] Other 11-10-2022 Evaluation note* Encounter Date Diagnosis [...] the goal and has adequate [employer] stores [employer] Other 11-10-2022 Evaluation note* Encounter Date Diagnosis [...] do not pop blisters. 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 S/sx of infection reviewed, if occur follow up right away with PCP, UC or ER. Patient verbalizes understanding and is agreeable with treatment plan Sep, Other Wright material was printed [employer] Other 11-10-2022 History general Narrative - Reported* [...] Medical History VERTIGO Medical History 04/28/2022 Acute canadian bacon tier elie resp. failure w/hypoxia, COPD excacerbation [facility] Medical History 04/28/2022-Sepsis sec ./ Para influenza PNA multifocal-[facility] Medical History 05/08/2022-Increasing shortness of breath [...] surgical hx Hospitalization History rt. heart cath eRx Stout- [facility] 05/11/16 Hospitalization History Water retention/ [facility] 02/2017 Hospitalization History [facility] 11/2017 Hospitalization History INFECTION IN LEFT SMALL TOE AND FOOT 11/2018 Hospitalization History [facility] -- ICU -- COPD, SMAL L WOUND ON LEFT FOOT 12/2019 Hospitalization History COPD [facility] [place] 12/2019 Hospitalization History Ankle wound 01/2020 Hospitalization History COVID 11/2020 Hospitalization History A-FIB, CHF, KIDNEY ISSUE S 03/2021 [employer] Other 10-26-2022 Evaluation note* Encounter Date Diagnosis [...] any worsening erythema, or with other concerns. [employer] Other 10-26-2022 History general Narrative - Reported* [...] Medical History VERTIGO Medical History 04/28/2022 Acute canadian bacon tier elie resp. failure w/hypoxia, COPD excacerbation [facility] Medical History 04/28/2022-Sepsis sec ./ Para influenza PNA multifocal-[facility] Medical History 05/08/2022-Increasing shortness of breath [...] Hospitalization History rt. heart cath Rex Stout- [facility] 05/11/16 Hospitalization History Water retention/ [facility] 02/2017 Hospitalization History [facility] 11/2017 Hospitalization History INFECTION IN LEFT SMALL TOE AND FOOT 11/2018 Hospitalization History [facility] -- ICU -- COPD, SMAL L WOUND ON LEFT FOOT 12/2019 Hospitalization History COPD [facility] [place] 12/2019 Hospitalization History Ankle wound 01/2020 Hospitalization History COVID 11/2020 Hospitalization History A-FIB, CHF, KIDNEY ISSUE S 03/2021 [employer] Other 10-21-2022 Evaluation note* Encounter Date Diagnosis Assessment Notes Treatment Notes Treatment Clinical Notes Aug, Lumbar and sacral arthritis (ICD-10 - M48.9) [employer] Other 10-03-2022 History general Narrative - Reported* [...] Hospitalization History rt. heart cath Rex Stout- [facility] 05/11/16 Hospitalization History Water retention/ [facility] 02/2017 Hospitalization History [facility] 11/2017 Hospitalization History INFECTION IN LEFT SMALL TOE AND FOOT 11/2018 Hospitalization History [facility] -- ICU -- COPD, SMAL L WOUND ON LEFT FOOT 12/2019 Hospitalization History COPD [facility] [place] 12/2019 Hospitalization History Ankle wound 01/2020 Hospitalization History COVID 11/2020 Hospitalization History A-FIB, CHF, KIDNEY ISSUE S 03/2021 [employer] Other 09-12-2022 Evaluation note* Encounter Date Diagnosis [...] (ICD-10 - I10) f/u with pcp Jul, 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 BENEFIT FROM LIBRE2 with alarms, ordered thru [employer] med. discussion and merck handout on hypoglycemia and treament. [employer] Other 08-04-2022 History general Narrative - Reported* [...] Hospitalization History rt. heart cath Rex Stout- [facility] 05/11/16 Hospitalization History Water retention/ [facility] 02/2017 Hospitalization [facility] 11/2017 Hospitalization History INFECTION IN LEFT SMALL TOE AND FOOT 11/2018 Hospitalization History [facility] -- ICU -- COPD, SMAL L WOUND ON LEFT FOOT 12/2019 Hospitalization History COPD [facility] [place] 12/2019 Hospitalization History Ankle wound 01/2020 Hospitalization History COVID 11/2020 Hospitalization History A-FIB, CHF, KIDNEY ISSUE S 03/2021 [employer] Other 08-02-2022 Evaluation note* Encounter Date Diagnosis Assessment Notes Treatment Notes Treatment Clinical Notes Jun, Community acquired pneumonia, unspecified laterality (ICD-10 - J18.9) He will complete the antibiotics and call with any worsening symptoms. I also advised him to call with any worsening diarrhea Jun, COPD (chronic obstructive pulmonary disease) (ICD-10 - J44.9) [employer] Other 08-02-2022 History general Narrative - Reported* [...] Hospitalization History rt. heart cath Rex Stout- [facility] 05/11/16 Hospitalization History Water retention/ [facility] 02/2017 Hospitalization History [facility] pithi 11/2017 Hospitalization History INFECTION IN LEFT SMALL TOE AND FOOT 11/2018 Hospitalization History [facility] -- ICU -- COPD, SMAL L WOUND ON LEFT FOOT 12/2019 Hospitalization History COPD [facility] [place] 12/2019 Hospitalization History Ankle wound 01/2020 Hospitalization History COVID 11/2020 Hospitalization History A-FIB, CHF, KIDNEY ISSUE S 03/2021 [employer] Other 07-27-2022 Progress note Author Ethan Cummings [facility] June 13, 2022 10:16pm Note Date/Time June 06, 2022 11:5 4am [facility] [place] [address] Hem/Onc Follow Up Note - OP Signed Patient: Adwoa Porter MR#: [id number] : 1955 Acct:[id number] Age/Sex: 66 / M Type: REG RCR Copies to: MD Vinnie hCarles, DO~ Date of Service: 06/06/2022 Time of [...] hs BCR/ABL was negative. Recent hospitalization at [place] for COVID PNA. He had also a [...] for coordination of care (as documented) and kdtb-mk-zvsm counseling of patient and/or family. [facility] - Medical History Medical History: Medical [...] signed by Ethan Cummings II, DO> 06/13/22 0608 [facility] Work Phone: [phone]) 960-980106-28-2022 History general Narrative - Reported* Type Description [...] Hospitalization History rt. heart cath Rex Stout- [facility] 05/11/16 Hospitalization History Water retention/ [facility] 02/2017 Hospitalization [facility] 11/2017 Hospitalization History INFECTION IN LEFT SMALL TOE AND FOOT 11/2018 Hospitalization History [facility] -- ICU -- COPD, SMAL L WOUND ON LEFT FOOT 12/2019 Hospitalization History COPD [facility] [place] 12/2019 Hospitalization History Ankle wound 01/2020 Hospitalization History COVID 11/2020 Hospitalization History A-FIB, CHF, KIDNEY ISSUE S 03/2021 [employer] Other 06-08-2022 Evaluation note* Encounter Date Diagnosis Assessment Notes Treatment Notes Treatment Clinical Notes Apr, Type 2 diabetes mellitus with hyperglycemia (ICD-10 - E11.65) [employer] Other 06-06-2022 Evaluation note* Encounter Date Diagnosis Assessment Notes Treatment Notes Treatment Clinical Notes Apr, Acute on chronic systolic congestive heart failure (ICD-10 - I50.23) [employer] Other 05-23-2022 Progress note Author Ethan Cummings [facility] April 10, 2022 3:31pm Note Date/Time April 10, 2022 2:42p m [facility] [place] [address] Hem/Onc Follow Up Note - OP Signed Patient: Adwoa Porter MR#: [id number] : 1955 Acct:[id number] Age/Sex: 66 / M Type: REG RCR [...] for coordination of care (as documented) and dbtl-qv-qfii counseling of patient and/or family. [facility] - Medical History Medical History: Medical [...] <Electronically signed by Ethan Cummings II DO> 04/10/22 1531 [facility] Work Phone: [phone]) 612-938704-29-2022 Evaluation note* Encounter Date Diagnosis Assessment Notes Treatment Notes Treatment Clinical Notes Feb, Facet arthritis of lumbar region (ICD-10 - M46.96) [employer] Other 04-14-2022 Evaluation note* Encounter Date Diagnosis Assessment Notes Treatment Notes Treatment Clinical Notes Feb, Acute onset of severe vertigo (ICD-10 - R42) 14 Apr, 2022 Impacted cerumen of right ear (ICD-10 - [...] this wound 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 Follow up with your primary care physciain tomorrow for further testing. Go to the ER for worsening symptoms or concerns. [employer] Other 03-22-2022 Evaluation note* Encounter Date Diagnosis [...] overload caused by recurring apneas are controlled. [employer] Other 02-23-2022 Evaluation note* Encounter Date Diagnosis [...] with alarms, ordered thru med. discussion and [employer] handout on hypoglycemia and treament. Dec, BMI 35.0-35.9,adult (ICD-10 - Z68.35) Dec, Other I have spent 30 minutes with this patient and over 50% of the visit was counseling done by myself, Tyesha JUDD. 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 [employer] Other 11-17-2021 Evaluation note* Encounter Date Diagnosis Assessment Notes Treatment Notes Treatment Clinical Notes Sep, Vitamin D deficiency (ICD-10 - E55.9) 07/09 54 sees NEPHRO Sep, Type 2 diabetes mellitus with hyperglycemia (ICD-10 - E11.65) 1. Uncontrolled, a Type 2 diabetes with A1c of 7.8% 2. Blood glucose levels higher, Libre2 download today 4 [id number] 48% active. Average glucose 269. 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 Name: Adwoa Porter Admitted: 04/12/2021 Discharged: 04/17/2021 Date of : 1955 Physician: Balbir Stubbs MD DISCHARGE SUMMARY PRINCIPAL DISCHARGE DIAGNOSES: 1. Ojded-pp-rjiwkrp heart failure with reduced ejection fraction. 2. [...] heart failure. The patient was transferred to [facility] on a bumetanide infusion. He was [...] If strongly occurs, follow up with his prism inspector as soon as possible. 3. The patient was strongly encouraged to consider acute rehab, however, he declined and insisted on returning to home. Total time spent on discharge coordination 45 minutes. Electronically Signed by: Balbir Stubbs MD 04/27/2021 01:19 P Balbir Stubbs MD Date Dict: 04/17/2021/03:44 P/Balbir Stubbs MD Date Trans: 04/18/2021 12:53 A/nena [id number] cc: Vinnie Stewart M.D. [facility] [address] [place] [address] Lowell Craft M.D. [address] [facility] [id number] [place]Dis[place] summary Author Yakov To [facility] February 15, 2023 2:13pm Note Date/Time February 15, 2023 2:1 3pm [facility] [address] [place] [id number] Discharge Summary Signed Patient: Adwoa Porter MR#: [id number] : 1955 Acct:[id number] Age/Sex: 67 / M Adm Date: 03/28/2 3 Loc: 4P Room: 8V4150-[address]: Yakov To DO Copies to: Yakov To, DO Vinnie Stewart, DO~ Providers Date of Admission: 02/13/23 Date [...] blood sugars and low potassium by his prism inspector. Upon arrival to the hospital his blood [...] <Electronically signed by Yakov To DO> 02/15/23 4983 [facility] Work Phone: Evaluation noteNo [place] [facility] Other Evaluation note* Diagnosis Onset Date Resolution Status Leukocytosis acute [facility] Work Phone: Evaluation note* Diagnosis Onset Date Resolution Status Leukocytosis acute SHIRA (acute kidney injury) ac jason Cardiomyopathy acute Elevated serum creatinine ac jason Elevated troponin acute Hyperglycemia acute Hypokalemia acute Hyponatremia acute Metabolic alkalosis with respiratory acidosis acute CKD (chronic kidney disease) stage 3, GFR 30-59 ml/min chronic Obstructive sleep apnea canadian bacon tier elie Paroxysmal A-fib chronic [facility] Work Phone: Evaluation noteNo assessment information available [facility] Work Phone: History and physical note Author Yakov To [facility] February 13, 2023 9:35pm Note Date/Time February 13, 2023 9:2 3pm [facility] [address] [place] [address] Hospitalist H&P Signed Patient: Adwoa Porter MR#: [id number] : 1955 Acct:[id number] Age/Sex: 67 / M Adm Date: 3 Loc: 4P Room: 9R5800-7 Type: ADM IN Attending Dr: Yakov To DO Copies to: DO Vinnie Perry, ~ HPI DATE OF EXAMINATION: 02/13/23 CHIEF COMPLAINT: [...] in the 500 range, he saw his prism inspector today and because he knew his glucose [...] % (Auto) 17.7 % (.) 02/13/23 16:49 Rice % (Auto) 8.0 % (.) 02/13/23 16:49 Eos % (Auto) 2.9 % (.) 02/13/23 16:49 Baso % (Auto) 0.6 % (.) 02/13/23 16:49 Nucleat RBC Rel Count 0.1 /100 WBC (0-0.5) 02/13/23 16:49 Neut # (Auto) 8.5 x10E3/uL (1.8-7.7) H 02/13/23 16:49 Lymph # (Auto) 2.1 x10E3/uL (1.00-4.8) 02/13/23 16:49 Rice # (Auto) 1.0 x10E3/uL (0.0-0.8) H 02/13/23 [...] pH 6.0 (5.0-9.0) 02/13/23 15:49 Ur Specific Mccoll 1.018 (1.001-1.030) 02/13/23 15:49 Urine Protein Negative [...] <Electronically signed by Yakov To, DO> 02/13/232134 [facility] Work Phone: History general Narrative - [...] Hospitalization History rt. heart cath Rex Stout- [facility] 05/11/16 Hospitalization History Water retention/ [facility] 02/2017 Hospitalization History [facility] 11/2017 Hospitalization History INFECTION IN LEFT SMALL TOE AND FOOT 11/2018 Hospitalization History [facility] -- ICU -- COPD, SMAL L WOUND ON LEFT FOOT 12/2019 Hospitalization History COPD [facility] [place] 12/2019 Hospitalization History Ankle wound 01/2020 Hospitalization History COVID 11/2020 Hospitalization History A-FIB, CHF, KIDNEY ISSUE S 03/2021 [employer] Other History general Narrative - Reported* Type [...] Hospitalization History rt. heart cath [facility] [facility] 05/11/16 Hospitalization History Water retention/ [facility] 02/2017 Hospitalization History [facility] 11/2017 Hospitalization History INFECTION IN LEFT SMALL TOE AND FOOT 11/2018 Hospitalization History [facility] -- ICU -- COPD, SMAL L WOUND ON LEFT FOOT 12/2019 Hospitalization History COPD [facility] [place] 12/2019 Hospitalization History Ankle wound 01/2020 Hospitalization History COVID 11/2020 Hospitalization History A-FIB, CHF, KIDNEY ISSUE S 03/2021 [employer] Other History general Narrative - Reported* Type [...] Medical History [facility] Medical History 04/28/2022 Acute canadian bacon tier elie resp. failure w/hypoxia, COPD excacerbation [facility] Medical History 04/28/2022-Sepsis sec ./ Para influenza PNA multifocal-[facility] Medical History 05/08/2022-Increasing shortness of breath post recent Dx w/covid-19 Medical History 06/13/2022-Severe sep sis to Multifocal PNA, acute on chronic resp. failure w/hypoxia, acute on systolic chronic HF Surgical History Cardiac catherization (07/2010) Surgical History AICD insertion (11/2010) Surgical History right sided heart cath - [place] 10/2013 Surgical History appendectomy Surgical History rt [...] Hospitalization History rt. heart cath Rex Stout- [facility] 05/11/16 Hospitalization History Water retention/ [facility] 02/2017 Hospitalization History [facility] 11/2017 Hospitalization History INFECTION IN LEFT SMALL TOE AND FOOT 11/2018 Hospitalization History [facility] -- ICU -- COPD, SMAL L WOUND ON LEFT FOOT 12/2019 Hospitalization History COPD [facility] [place] 12/2019 Hospitalization History Ankle wound 01/2020 Hospitalization History COVID 11/2020 Hospitalization History A-FIB, CHF, KIDNEY ISSUE S 03/2021 [employer] Other History general Narrative - Reported* Type [...] Medical History [facility] Medical History 04/28/2022 Acute canadian bacon tier elie resp. failure w/hypoxia, COPD excacerbation [facility] Medical History 04/28/2022-Sepsis sec ./ Para influenza PNA multifocal-[facility] Medical History 05/08/2022-Increasing shortness of breath [...] Hospitalization History rt. heart cath Rex Stout- [facility] 05/11/16 Hospitalization History Water retention/ [facility] 02/2017 Hospitalization History [facility] 11/2017 Hospitalization History INFECTION IN LEFT SMALL TOE AND FOOT 11/2018 Hospitalization History [facility] -- ICU -- COPD, SMAL L WOUND ON LEFT FOOT 12/2019 Hospitalization History COPD [facility] [place] 12/2019 Hospitalization History Ankle wound 01/2020 Hospitalization History COVID 11/2020 Hospitalization History A-FIB, CHF, KIDNEY ISSUE S 03/2021 Hospitalization History [facility] 01/2023 [employer] Other History general Narrative - Reported* Type [...] Medical History [facility] Medical History 04/28/2022 Acute canadian bacon tier elie resp. failure w/hypoxia, COPD excacerbation [facility] Medical History 04/28/2022-Sepsis sec ./ Para influenza PNA multifocal-[facility] Medical History 05/08/2022-Increasing shortness of breath post recent Dx w/covid-19 Medical History 06/13/2022-Severe sep sis to Multifocal PNA, acute on chronic resp. failure w/hypoxia, acute on systolic chronic HF Medical History [facility]- r ight great toe bleeding (not [...] Hospitalization History rt. heart cath Rex Stout- [facility] 05/11/16 Hospitalization History Water retention/ [facility] 02/2017 Hospitalization History [facility] pital 11/2017 Hospitalization History INFECTION IN LEFT SMALL TOE AND FOOT 11/2018 Hospitalization History [facility] -- ICU -- COPD, SMAL L WOUND ON LEFT FOOT 12/2019 Hospitalization History COPD [facility] [place] 12/2019 Hospitalization History Ankle wound 01/2020 Hospitalization History COVID 11/2020 Hospitalization History A-FIB, CHF, KIDNEY ISSUE S 03/2021 Hospitalization History [facility] 01/2023 Hospitalization History [facility] discha rged 03-27-2023 [employer] Other Hisztrk general Narrative - Reported* Type Description Date [...] Medical History [facility] Medical History 04/28/2022 Acute canadian bacon tier elie resp. failure w/hypoxia, COPD excacerbation [facility] Medical History 04/28/2022-Sepsis sec ./ Para influenza PNA multifocal-[facility] Medical History 05/08/2022-Increasing shortness of breath post recent Dx w/covid-19 Medical History 06/13/2022-Severe sep sis to Multifocal PNA, acute on chronic resp. failure w/hypoxia, acute on systolic chronic HF Medical History [facility]- r ight great toe bleeding (not stopping) Medical History pneumonia-[facility] 06-05 Medical History [facility]-7-2023 Surgical History Cardiac catherization (07/2010) Surgical History AICD insertion (11/2010) Surgical History right sided heart cath - [place] 10/2013 Surgical History appendectomy Surgical History rt [...] History rt. heart cath D Addy Stout- [facility] 05/11/16 Hospitalization History Water retention/ [facility] 02/2017 Hospitalization History [facility] 11/2017 Hospitalization History INFECTION IN LEFT SMALL TOE AND FOOT 11/2018 Hospitalization History [facility] -- ICU -- COPD, SMAL L WOUND ON LEFT FOOT 12/2019 Hospitalization History COPD [facility] [place] 12/2019 Hospitalization History Ankle wound 01/2020 Hospitalization History COVID 11/2020 Hospitalization History A-FIB, CHF, KIDNEY ISSUE S 03/2021 Hospitalization History [facility] 01/2023 Hospitalization History [facility] discha rged 03-27-2023 Hospitalization History [facility] x2 7-2 023 [employer] Other History general Narrative - Reported* Type [...] Medical History [facility] Medical History 04/28/2022 Acute canadian bacon tier elie resp. failure w/hypoxia, COPD excacerbation [facility] Medical History 04/28/2022-Sepsis sec ./ Para influenza PNA multifocal-[facility] Medical History 05/08/2022-Increasing shortness of breath post recent Dx w/covid-19 Medical History 06/13/2022-Severe sep sis to Multifocal PNA, acute on chronic resp. failure w/hypoxia, acute on systolic chronic HF Medical History [facility]- r ight great toe bleeding (not stopping) Medical History pneumonia-[facility] 06-05 Medical History [facility]-7-2023 Medical History [id number]-[facility] Surgical History Cardiac catherization (07/2010) Surgical History AICD insertion (11/2010) Surgical History right sided heart cath - [place] 10/2013 Surgical History appendectomy Surgical History rt [...] Hospitalization History rt. heart cath Rex Stout- [facility] 05/11/16 Hospitalization History Water retention/ [facility] 02/2017 Hospitalization History [facility] 11/2017 Hospitalization History INFECTION IN LEFT SMALL TOE AND FOOT 11/2018 Hospitalization History [facility] -- ICU -- COPD, SMAL L WOUND ON LEFT FOOT 12/2019 Hospitalization History COPD [facility] [place] 12/2019 Hospitalization History Ankle wound 01/2020 Hospitalization History COVID 11/2020 Hospitalization History A-FIB, CHF, KIDNEY ISSUE S 03/2021 Hospitalization History [facility] 01/2023 Hospitalization History [facility] discha rged 03-27-2023 Hospitalization History [facility] x2 7-2 023 Hospitalization History [facility] 10-2 023 [employer] Other History general Narrative - Reported* Type [...] Medical History [facility] Medical History 04/28/2022 Acute canadian bacon tier elie resp. failure w/hypoxia, COPD excacerbation [facility] Medical History 04/28/2022-Sepsis sec ./ Para influenza PNA multifocal-[facility] Medical History 05/08/2022-Increasing shortness of breath post recent Dx w/covid-19 Medical History 06/13/2022-Severe sep sis to Multifocal PNA, acute on chronic resp. failure w/hypoxia, acute on systolic chronic HF Medical History [facility]- r ight great toe bleeding (not stopping) Medical History pneumonia-[facility] 06-05 Medical History [facility]-7-2023 Medical History [id number]-[facility] Surgical History Cardiac catherization (07/2010) Surgical History AICD insertion (11/2010) Surgical History right sided heart cath - [place] 10/2013 Surgical History appendectomy Surgical History rt [...] Hospitalization History rt. heart cath Rex Stout- [facility] 05/11/16 Hospitalization History Water retention/ [facility] 02/2017 Hospitalization History [facility] pital 11/2017 Hospitalization History INFECTION IN LEFT SMALL TOE AND FOOT 11/2018 Hospitalization History [facility] -- ICU -- COPD, SMAL L WOUND ON LEFT FOOT 12/2019 Hospitalization History COPD [facility] [place] 12/2019 Hospitalization History Ankle wound 01/2020 Hospitalization History COVID 11/2020 Hospitalization History A-FIB, CHF, KIDNEY ISSUE S 03/2021 Hospitalization History [facility] 01/2023 Hospitalization History [facility] discha rged 03-27-2023 Hospitalization History [facility] x2 7-2 023 Hospitalization History [facility] - 023 Hospitalization History [facility] rib fx left Hospitalization History [facility] -pnemo jennifer [employer] Other History general Narrative - Reported* Type [...] Medical History [facility] Medical History 04/28/2022 Acute canadian bacon tier leie resp. failure w/hypoxia, COPD excacerbation [facility] Medical History 04/28/2022-Sepsis sec ./ Para influenza PNA multifocal-[facility] Medical History 05/08/2022-Increasing shortness of breath post recent Dx w/covid-19 Medical History 06/13/2022-Severe sep sis to Multifocal PNA, acute on chronic resp. failure w/hypoxia, acute on systolic chronic HF Medical History [facility]- r ight great toe bleeding (not stopping) Medical History pneumonia-[facility] 06-05 Medical History [facility]-7-2023 Medical History [id number]-[facility] Medical History NON RESPONSIVE X 2 IN THE LAST 6 WEEKS Surgical History Cardiac catherization (07/2010) Surgical History AICD insertion (11/2010) Surgical History right sided heart cath - [place] 10/2013 Surgical History appendectomy Surgical History rt [...] History rt. heart cath D Addy Stout- [facility] 05/11/16 Hospitalization History Water retention/ [facility] 02/2017 Hospitalization History [facility] 11/2017 Hospitalization History INFECTION IN LEFT SMALL TOE AND FOOT 11/2018 Hospitalization History [facility] -- ICU -- COPD, SMAL L WOUND ON LEFT FOOT 12/2019 Hospitalization History COPD [facility] [place] 12/2019 Hospitalization History Ankle wound 01/2020 Hospitalization History COVID 11/2020 Hospitalization History A-FIB, CHF, KIDNEY ISSUE S 03/2021 Hospitalization History [facility] 01/2023 Hospitalization History [facility] discha rged 03-27-2023 Hospitalization History [facility] x2 7-2 023 Hospitalization History [facility] 10-2 023 Hospitalization History [facility] rib fx left Hospitalization History [facility] -pnemo jennifer [employer] Other History general Narrative - Reported* Type [...] Medical History [facility] Medical History 04/28/2022 Acute canadian bacon tier elie resp. failure w/hypoxia, COPD excacerbation [facility] Medical History 04/28/2022-Sepsis sec ./ Para influenza PNA multifocal-[facility] Medical History 05/08/2022-Increasing shortness of breath post recent Dx w/covid-19 Medical History 06/13/2022-Severe sep sis to Multifocal PNA, acute on chronic resp. failure w/hypoxia, acute on systolic chronic HF Medical History [facility]- r ight great toe bleeding (not stopping) Medical History pneumonia-[facility] 06-05 Medical History [facility]-7-2023 Medical History [id number]-[facility] Medical History NON RESPONSIVE X 2 IN THE LAST 6 WEEKS Surgical History Cardiac catherization (07/2010) Surgical History AICD insertion (11/2010) Surgical History right sided heart cath - [place] 10/2013 Surgical History appendectomy Surgical History rt heart cath 05/11/16 Surgical History pacemaker 07/2016 Surgical History SKIN GRAFT-FROM LEFT LEG TO LEF T FOOT 10/2018 Surgical History LEFT SMALL TOE AMPUTATION WITH SOME FOOT BONE 11/2018 Surgical History COLONOSCOPY AND EGD [facility] Surgical History amputation left fifth toe Surgical History Ankle I/D LEFT 01/2020 Surgical History Left heel skin graft 03/29/2020 Surgical History SKIN GRAFT TO LEFT FOOT 03/2020 Surgical History CATARACT REMOVED ON RIGHT EYE Surgical History CATARACT REMOVED FROM LEFT EYE 06/2021 Hospitalization History see surgical hx Hospitalization History rt. heart cath Rex Stout- [facility] 05/11/16 Hospitalization History Water retention/ [facility] 02/2017 Hospitalization History [facility] 11/2017 Hospitalization History INFECTION IN LEFT SMALL TOE AND FOOT 11/2018 Hospitalization History [facility] -- ICU -- COPD, SMAL L WOUND ON LEFT FOOT 12/2019 Hospitalization History COPD [facility] [place] 12/2019 Hospitalization History Ankle wound 01/2020 Hospitalization History COVID 11/2020 Hospitalization History A-FIB, CHF, KIDNEY ISSUE S 03/2021 Hospitalization History [facility] 01/2023 Hospitalization History [facility] discha rged 03-27-2023 Hospitalization History [facility] x2 7-2 023 Hospitalization History [facility] 10- 023 Hospitalization History [facility] rib fx left Hospitalization History [facility] -pnemo jennifer [employer] Other progress note Author Ethan Cummings [facility] December 04, 2022 1:47pm Note Date/Time December 04, 2022 1 :44pm [facility] [place] [id number] Hem/Onc Follow Up Note - OP Signed Patient: Adwoa Porter MR#: [id number] : 1955 Acct:[id number] Age/Sex: 67 / M Type: REG RCR [...] hs BCR/ABL was negative. Recent hospitalization at [place] for COVID PNA. He had also a [...] for coordination of care (as documented) and [id number] counseling of patient and/or family. [facility] - Medical History Medical History: Medical [...] % (Auto) 67.1, Lymph % (Auto) 20.5, Rice % (Auto) 8.2, Eos % (Auto) 3.5, Baso % (Auto) 0.7, Nucleat RBC Rel Count 0.1, Neut # (Auto) 7.9 H, Lymph # (Auto) 2.4, Rice # (Auto) 1.0 H, Eos # (Auto) [...] <Electronically signed by Ethan Cummings II DO> 12/04/22 1347 [facility] Work Phone: Advance Directives No Advanced Directives Records Found Advance Directive Response Recorded Date/ Time Advance Directives No July 2:42pm Advance Directive Response Recorded Date/ Time Advance Directives No July 1:42pm Chief Complaint and Reason for Visit Chief Complaint Right great toe woun d Reason for Visit Cellulitis of left t oe Controlled type 2 diabetes mellitus with diabetic polyneuropathy [id number] Chief Complaint DM Obstructive sleep apnea Chief Complaint DM Leukocytosis Reason for Visit Leukocytosis Chief Complaint Leukocytosis DM sent by [employer] Reason for Visit Leukocytosis SHIRA (acute kidney injury) Cardiomyopathy Elevated serum creatinine Elevated troponin Hyperglycemia Hypokalemia Hyponatremia Metabolic alkalosis with respiratory acidosis CKD (chronic kidney disease) stage 3, GFR 30-59 ml/min Obstructive sleep apnea Paroxysmal A-fib Chief Complaint Leukocytosis DM sent by [employer] E87.6 I48.0 Reason for Visit Leukocytosis SHIRA [...] diabetes m ellitus with diabetic polyneuropathy acute [id number] acute Family History No Family History Records Found Relationship Condition Age at Onset Recorded Date/T [...] encounter (T23.022A) Referral Organization [facility] [address] Referring Provider First Name Gisselle Referring Provider Last Name Noble Referring Provider Specialty Nurse Pract itioner Referred Organization [facility] Referred Address [address],[place], [place],[address] Referred Provider Specialty Wound Care Referral Priority Routine General Notes Lennie Mcghee 022 12:46:37 PM >Received today and waiting for office notes to be locked before sending referral Lennie Mcghee 10/03/2022 03:00:03 PM >Referral was fax Clinical Notes Office [phone] Reason * FU 02/13 lumbar arthritis/pain - wants [place] [facility] Diagnosis 1 Lumbar and sacral ar thritis (M48.9) Referral Organization [facility] Referring Provider First Name Vinnie Referring Provider Last Name Terry Referring Provider Specialty Family Prac yamil Referred Organization [facility] Referred Address [address], [place],[address] Referred Provider Specialty Pain Medicin e Referral Priority Routine General Notes Doris Modi 12:58:37 PM > referral received and faxed Additional Source Comments (unrecognized sect ion and content) No Status Records FoundNo Status Records FoundNo Status Records FoundNo Status Records FoundNo Status Records FoundNo Status Records FoundNo Status Records Found INFORMATION SOURCE (unrecogn ized section and content) DATE CREATED AUTHOR 11/17/[address] [facility] DATE CREATED AUTHOR AUTHOR'S ORGANIZ ATION 03/05/2022 [facility] DATE CREATED AUTHOR AUTHOR'S ORGANIZ ATION 04/27/2023 [facility] DATE CREATED AUTHOR AUTHOR'S ORGANIZ ATION 09/03/2023 [facility] DATE CREATED AUTHOR AUTHOR'S ORGANIZ ATION 11/26/2023 [facility] DATE CREATED AUTHOR AUTHOR'S ORGANIZ ATION 12/23/2023 [facility] DATE CREATED AUTHOR AUTHOR'S ORGANIZ ATION 01/20/2024 [facility] REASON FOR VISIT (unrecogniz ed section and content) 4 month Follow upportable co ncentratorDM, Needs to reapply for PAP, Type 2 IDDM, [facility] FOLLOW UP, Patient will mail PAP back when he is done 10-05-21DS [employer] RefillAPPT CANCELLEDDS Voicemail/ Diabetic ShoesXRAY RESULTSappt question-DS Patient Assistance Renewal/APPROVEDDM 6 week f/u, Type 2 IDDM, [facility] FO[facility], [facility] Visit CodesMED REFILLDS please call/ Diabetic shoes [...] F/U - pneumonia, SOB, Pt was at [facility], He said he went in on 06/12 and was dc 06/16, He said he is feeling betterDS DM appt CxFallrefillDS Sensor refillDM, DM, DM follow up, Type 2 IDDM, LUCAS 2, [facility] Visit CodesD/Ctrouble breathingrefillDS Returning clinic's callFINGER PAINDS please callsickCKD and HTNburns left handrefillrefillDS Needs [facility] Referral Updatemed refillHosp d/c Farxiga and JardianceD/C [facility] reviewrefillDM follow up, DM, DM, DM follow up, Type 2 IDDM, LUCAS 2, [facility] Visit Codes, In-patient [facility]10[facility]18-10/24/2022, [facility] Visit CodesconsultDeclined servicesStein Hospice ReferraldownloadStein Hospice ReferralNo [id number] requestDS PAP Basaglar/TrulicityDS VoicemailrefillHOSPITAL VISIT, Acute on chronic systolic CHFrefillupdatefall, bruise, lump on back near L shoulderbalance issuesrefillHOSPITAL FOLLOW [facility]ITALfallNo Informationrefillbruising all over, difficulty walkingDS N/S [...] DO Primary Care Provider Active Nicolette Manzano , SYNOPTIC METEOROLOGIST Attending Provider Active Team Status: Active Member Role Status Dates Vinnie Stewart , DO Primary Care Provider Active Alejandro Robert Kemanuela , DO Emergency Provider Active Yakov To [...] BE BASED ON THE PRIMARY CLINICAL RECORDS. [employer] provides no warranty or guarantee of the accuracy or completeness of information in this document.
[2024-01-25 07:41] LABS: Basophils Absolute Auto 0.1 10^3/uL (0.0-0.1); Basophils Percent Auto 0.3 % (0.2-2.0); Eosinophils Absolute Auto 0.4 10^3/uL (0.0-0.7); Eosinophils Percent Auto 2.5 % (0.9-7.0); Hematocrit 31.3 % (42.0-54.0); Hemoglobin 10.2 g/dL (14.0-18.0); Immature Granulocytes Pct Auto 0.6 % (0.0-0.5); Lymphocytes Absolute Auto 1.8 10^3/uL (1.2-3.8); Lymphocytes Percent Auto 10.6 % (20.5-60.0); Mean Corpuscular HGB Conc 32.6 g/dL (29.9-35.2); Mean Corpuscular Hemoglobin 26.8 pg (25.9-34.0); Mean Corpuscular Volume 82.4 fL (80.0-94.0); Mean Platelet Volume 9.9 fL (9.5-13.5); Monocytes Percent Auto 5.6 % (1.7-12.0); Neutrophils Absolute Auto 13.8 10^3/uL (1.4-6.5); Neutrophils Percent Auto 80.4 % (43.0-75.0); Platelet Count 344 10^3/uL (150-450); White Blood Count 17.1 10^3/uL (4.0-11.0)
[2024-01-25 07:49] LABS: INR 2.08; Prothrombin Time 21.2 sec (9.0-11.6)
[2024-01-25 08:02] LABS: Alanine Aminotransferase 35 U/L (16-63); Albumin Globulin Ratio 0.3; Albumin Level 1.5 g/dL (3.4-5.0); Alkaline Phosphatase 158 U/L (46-116); Anion Gap 13.1; Aspartate Amino Transferase 34 U/L (15-37); Bilirubin Total 0.6 mg/dL (0.2-1.0); Calcium 7.9 mg/dL (8.5-10.1); Carbon Dioxide 25.7 mmol/L (21.0-32.0); Chloride 94 mmol/L (98-107); Estimated GFR (African America 36 (>=60); Estimated GFR (Non-African Ame 30 (>=60); Globulin 5.7 g/dL; Glucose 151 mg/dL (74-106); Potassium 3.8 mmol/L (3.5-5.1); Sodium 129 mmol/L (136-145); Total Protein 7.2 g/dL (6.4-8.2)
== END 2024-01-25 01:40 | disposition home or self-care (01) ==
LOC: LAB 01:39
PROVIDERS: PCP Family Medicine; Visit Provider Family Medicine
DX: I48.91 Unspecified atrial fibrillation (principal); Z79.01 Long term (current) use of anticoagulants; A41.9 Sepsis, unspecified organism; Z79.2 Long term (current) use of antibiotics
CPT/HCPCS: 36415; 80053; 80150; 85025; 85610

== ENCOUNTER 2024-01-28 01:23 | Outpatient (REF) | payer MEDICARE, SELFPAY ==
--- OUTSIDE RECORDS SUMMARY | 2024-01-28 01:32 | XMS_ITS | CCD ---
Author Name Unknown Address [address] [facility] [address] [place] [address] Organization [facility] Care Team Providers Care Stna Name Role Phone Vinnie Stewart Primary Care Provider Unavailab Valentin Gomez (WND) Attending Provider Unavaila Vinnie Lemon Primary Care Provider Nicolette Manzano Attending Provider Ivon Kat Attending Provider [phone] PA Procedure Practitioner Unavailab VINNIE Nash Primary Care Unavailable LOWELL CRAFT Referring Unavailable ANNABELLE BOYD Surgeon Unavailable CECILE MAJOR Admitting Unavailable CECILE MAJOR Attending Unavailable PA Procedure Practitioner Unavailab BALBIR Cardenas Surgeon Unavailable Vinnie Stewart Unavailable Vinnie Stewart Unavailable Brittnee Spain Unavailable Ruthie Guzman Unavailable Balbir Ba Unavailable Simba Kaufman Unavailable Gisselle Dickey Unavailable DO Vinnie Steawrt Primary Care Provider CHARISSE Manzano Attending Provider DO Ethan Cummings II Attending Provider MD Simba Kaufman Referring Provider DO Vinnie Stewart Primary Care Provider DO Ethan Cummings II Attending Provider MD Simba Kaufman Referring Provider [phone] CHARISSE Manzano Attending Provider Miya DO Alejandro Jones Emergency Provider DO Yakov To Admit Provider [phone] DO Yakov To Attending Provider [phone] SHIRLEY, BRYCE Admitting Unavailable SHIRLEY, BRYCE Attending Unavailable SHIRLEY, BRYCE Consulting Unavailable STEWART, VINNIE Primary Care Unavailable FAWWAD, BROWN H Attending Unavailable FAWWAD, BROWN H Admitting Unavailable STEWART, VINNIE Primary Care Unavailable FAWWAD, BROWN H Admitting Unavailable FAWWAD, BROWN H Attending Unavailable STEWART, [place] Primary Care Unavailable SEPIDEH ., NIK Admitting Unavailable SEPIDEH ., NIK Attending Unavailable JACOBSON ., DR PROMISE Proctor Consulting Unavailable [facility] Primary Care Unavailable PAY ., DR TOM Consulting Unavailable SUSHIL STOUT Consulting Unavailable STU CONN Consulting Unavailable CAILIN, MASSIMO Consulting Unavailable MICKY PRUITT Consulting Unavailable SISTER, MURTAZA Consulting Unavailable SEPIDEH ., NIK Consulting Unavailable [facility] Primary Care Unavailable HOY ., DR [...] KODI Admitting Unavailable YEARKODI GOLDBERG Attending Unavailable MILTON, [place] Primary Care Unavailable MISC, DR YEN Consulting Unavailable MISC, DR YEN Admitting Unavailable MISC, DR YEN Attending Unavailable STEWART, [place] Primary Care Unavailable JACSIMBA Consulting Unavailable JACTJUL Admitting Unavailable STEWART, VINNIE Primary Care Unavailable JAC, SIMBA Attending Unavailable JAC, SIMBA Admitting Unavailable JAC, SIMBA Attending [facility] Care Unavailable JAC, SIMBA Consulting Unavailable FAWWAD, BROWN H Attending Unavailable FAWWAD, BROWN H Admitting Unavailable [facility] Primary Care Unavailable FAWWAD, BROWN H Admitting Unavailable FAWWAD, BROWN H Attending Unavailable [facility] Primary Care Unavailable FAWWAD, BROWN H Attending Unavailable FAWWAD, BROWN H Admitting Unavailable STEWART, [place] Primary Care Unavailable YEARTY, KODI Admitting Unavailable YEARTY, KODI Attending Un[facility] Primary Care Unavailable YEARTY, KODI Consulting Unavailable CAILIN, MASSIMO Admitting Unavailable CAILIN, MASSIMO Attending Unavailable TERRY, [place] Primary Care Unavailable CAILIN, MASSIMO Consulting Unavailable CANDELARIA SEGAL Admitting Unavailable EMA Olson, CANDELARIA Attending Unavailable JORGE [place] [facility] Primary Care Unavailable CANDELARIA SEGAL Consulting Unavailable FAWWAD, BROWN H Attending Unavailable [facility] Primary Care Unavailable FAWWAD, BROWN H Admitting Unavailable DR IMTIAZ DUVAL Consulting Unavailable FAWWAD, BROWN H Consulting Unavailable SOFÍA GASTON Consulting Unavailable MIRYAM MENDEZ Consulting Unavailable JOSE STRONG Consulting Unavailable ALLIE BERMUDEZ Consulting Unavailable FAWWAD, BROWN H Admitting Unavailable FAWWAD, BROWN H Attending Unavailable [facility] Primary Care Unavailable FAWWAD, BROWN H Attending Unavailable FAWWAD, BROWN H Admitting Un[facility] Primary Care Unavailable FAWWAD, BROWN H Admitting Unavailable FAWWAD, BROWN H Attending Unavailable [facility] Primary Care Unavailable JORGE ARROYO Admitting Unavailable JORGE ARROYO Attending Unavailable VINNIE STEWART Primary Care Unavailable JORGE ARROYO Admitting Unavailable JORGE ARROYO Attending Unavailable TERRY, VINNIE Primary Care Unavailable JORGE ARROYO Admitting Unavailable JORGE ARROYO Attending Unavailable TERRY VINNIE Primary Care Unavailable JORGE ARROYO Admitting Unavailable JORGE ARROYO Attending Un[facility] Primary Care Unavailable JORGE ARROYO Admitting Unavailable JORGE ARROYO Attending Unavailable [facility] Primary Care Unavailable ZIMARIMAR, DR BIANCA Sorto Consulting Unavailable PAY ., DR TOM Admitting Unavailable PAY ., DR TOM Attending Unavailable STEWART, VINNIE Primary Care Unavailable PAY ., DR TOM Consulting Unavailable FAWWAD, BROWN H Admitting Unavailable FAWWAD, BROWN H Attending Unavailable STEWART, VINNIE Primary Care Unavailable WEST, DR BALBIR Thorpe Consulting Unavailable SADE, DR BIANCA Sorto Consulting Unavailable NADERER, DR LOWELL Jones Consulting Unavailable EDSON PARKS Consulting Unavailable BRIANNA ., ANAMIKA Consulting Unavailable FAWWAD, BROWN H Consulting Unavailable HOY ., DR SOTELO Consulting Unavailable HOY ., DR SOTELO Admitting Unavailable MAYURY ., DR SOTELO Attending Unavailable STEWART, VINNIE Primary Care Unavailable ZIEBER, DR BIANCA [...] Attending Unavailable STEWART, VINNIE Primary Care Unavailable HIGHLANDER, PETER D Admitting Unavailable HIGHLANDER, JORGE D Attending Unavailable STEWART, VINNIE Primary Care Unavailable Mapus, Tondra Unavailable PROVIDER, UNKNOWN Attending Unavailable PROVIDER, UNKNOWN Admitting Unavailable VINNIE STEWART R. Referring Unavailable VINNIE STEWART R. Primary Care Unavailable DO Vinnie Stewart Primary Care Provider CHARISSE Manzano Attending Provider Yakov To Admitting Unavailable Yakov To Attending Unavailable Vinnie Stewart R Primary Care Unavailable Stewart, Vinnie R Primary Care Unavailable Natacha, Tondra K Admitting Unavailable Natacha, Tondra K Attending Unavailable Terry, Vinnie R Primary Care Unavailable Yakov To Admitting Unavailable Yakov To Attending Unavailable Jorge Arroyo D Admitting Unavailable Jorge Arroyo D Attending Unavailable DAHIANA BELCHER Attending Unavailable SUSHIL STOUT Attending Unavailable FATIMAH NARVAEZ Referring Unavailable BRYCE WATSON Attending Unavailable MASSIMO SWAN Attending Unavailable SUSHIL STOUT Attending Unavailable BRYCE WATSON Attending Unavailable BRYCE WATSON Attending Unavailable SUSHIL STOUT Attending Unavailable Unavailable Unavailable Unavailable Allergies Allergy Classification Reported Allergen(s) Allergy Type Date of Onset Reaction(s) Facility (11 sources) Angiotensin Converting Enzyme (Gabriela) Inhibitors; 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: [GABRIELA Inhibitors] Propensity to adverse reactions 2 Cough [facility] Repository (20 sources) Angiotensin Converting Enzyme (Gabriela) Inhibitors Propensity to adverse reactions cough AirXpanders Other Medications Current Medications Medication Drug Class(es) [...] 8 hrs for 30 day(s) Sep, Active [id number] 200 actuat albuterol 0.09 mg/actuat metered dose [...] Start: 03-02-2022 take 1 capsule by mo [facility] every eight hours Cephalexin 500 MG [...] Start: 12-09-2021 take 1 capsule by mo [facility] every twelve hours Cephalexin 500 MG [...] 325 MG PO Daily June 06, 2022 11:07am Start: 06-06-2022 End: 06-06-2022 Ferrous Sulfate Discontinued MG TABLET June 05, 2022 11:00pm June 06, 2022 11:07am FreeStyle Lucas 14 Day Senso r - (20 sources) Start: 04-27-2022 FreeStyle Libr e 14 Day Sensor - as directed SQ change every 14 days for 28 days DX E11.65 Apr, Active FreeStyle Lucas 2 [place] - (20 sources) FreeStyle Lucas 2 [place] - USE READER TO TEST BLOOD SUGAR DIRECTED DAILY for 365 Active FreeStyle Lucas 2 [place] - USE DIRECTED DAILY for 365 Active FreeStyle Lucas 2 [place] Sys tm - (20 sources) FreeStyle Lucas 2 [place] Systm - as directed SQ Daily Active FreeStyle Lucas 2 [place] Systm - as directed SQ Daily for [...] 04, 2019 12:05pm take 1 tablet by cderick th every twelve hours Furosemide 80 MG [...] AM Active take 3 tablets by mo [facility] once in the evening Furosemide 20 [...] Gabapentin Discontinued 300 MG PO Twice daily February 17, 2020 11:15am March 12, 2020 [...] 2020 7:46am take 2 tablets by mo [facility] every twenty-four hours predniSONE 50 mg oral tablet (20 sources) Start: 12-22-2022 take 1 tablet by cedrick every twenty-four hours predniSONE 50 MG 1 tablet Orally Once a day for 5 day(s) Dec, Active Start: 05-30-2022 take 2 tablets by mo [facility] every twenty-four hours predniSONE 20 MG [...] 2022 11:07am take 1 tablet by cedrick every twenty-four hours Vitamin B12 1000 MCG [...] sources) Anticholinergic Start: 04-10-2022 End: 12-04-2022 Ipratropium [place] Discontinued SOLUTION April 09, 2022 11:00pm December [...] Inhibitor Start: 07-26-2016 Toradol per 15 mg 07 Jul, 2016 60 mg levoFLOXacin 500 mg oral tablet [...] 2019 11:00pm December 04, 2019 12:07pm sennosides, shelter 8.6 mg oral tablet (6 sources) Start: [...] Angina pectoris; 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] Onset: [...] Diabetes mellitus; 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: [Type 2 diabetes mellitus] 05-23-2022 Chronic Diseases of white blood cells (20 [...] (1 source) Frequency of micturition Episodi c Heart valve disorders (2 sources) Nonrheumatic tricuspid (valve) insufficiency; 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: [Nonrheumatic tricuspid (valve) insufficiency] Onset: 4 Chronic Hemorrhoids (20 sources) Hemorrhoids; 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: [Unspecified hemorrhoids] [...] sources) Long-term current use of insulin; 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: [prison (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] Episodic Other aftercare (9 sources) journalist (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; 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] Onset: 1 Resolved: 2 Episodic Other aftercare (1 source) journalist (current) use of aspirin; 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: [BORDER INSPECTOR CURRENT USE OF ASPIRIN] Onset: 3 Episodic Other aftercare (1 source) Other longwall foreman (current) drug therapy; 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: [OTH BORDER INSPECTOR CURRENT DRUG THERAPY] Onset: 3 Episodic Other aftercare (5 sources) Encounter for therapeutic drug level monitoring; 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: [ENC THERAPEUTC DRUG LEVL MONITORING] Onset: 3 Episodic Other aftercare (1 source) 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; 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: [JAIL CURRNT USE ANTICOAGULANTS] Onset: 3 Episodic Other [...] (adult) (pediatric)] 04-10-2022 Chronic Residual codes; unclassified (4 sources) Obstructive sleep apnea (adult) (pediatric); 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: [Obstructive sleep apnea (adult)(pediatric)] Onset: 2 Resolved: 2 Chronic Residual codes; unclassified (1 source) Sleep apnea, unspecified; 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: [SLEEP APNEA UNSPECIFIED] Onset: 3 Chronic Residual codes; unclassified (1 source) Localized [...] Test Name Value Interpretation Reference Range Facility Office Visiton 01-25-2024 Follow-up visit [id number] Adwoa Porter 1955 M Date Provider Department Center 01/25/2024 BRYCE TRAORE Family History Problem Relation Age of Onset Diabetes Mother Hypertension Mother Coronary artery disease Mother Family Status - Relation Status Age at Mother Level of Service:40831 PA OFFICE/OUTPATIENT ESTABLISHED MOD MDM 30 MIN Normal [facility] URINALYSISon 12-18-2023 Bilirubin Ql (U) Negative Normal NEG [facility] Comment on above: Performed By: #### U A #### [facility] ([id number]) [address] [place] [address]509 BLOOD/HGB Negative Normal NEG [facility] Comment on above: Performed By: #### U A #### [facility] ([id number]) [address] [place] [address] 75159 Color (U) YELLOW Normal YELLOW [facility] Comment on above: Performed By: #### U A #### [facility] ([id number]) [address] [place] [address] 13148 Glucose Ql (U) >1000 Abnormal NEG [facility] Comment on above: Performed By: #### U A #### [facility] ([id number]) [address] [place] [address] 77294 Ketones Ql (U) Negative Normal NEG [facility] Comment on above: Performed By: #### U A #### [facility] ([id number]) [address] [place] [address] 68470 Leukocyte esterase Test strip Ql (U) Negative Normal NEG [facility] Comment on above: Result Comment: HIGH CONCENTRATIONS OF GLUCOSE MAY DECREASE THE REACTIVITY OF THE DIPSTICK LEUKOCYTE TEST PAD. Performed By: #### U A #### [facility] ([id number]) [address] [place] [address] 67917 Nitrite Ql (U) Negative Normal NEG [facility] Comment on above: Performed By: #### U A #### [facility] ([id number]) [address] [place] [address] 02718 pH (U) 7.0 [pH] Normal 5.0-8.5 [facility] Comment on above: Performed By: #### U A #### [facility] ([id number]) [address] [place] [address] 02057 Protein Ql (U) Negative Normal NEG [facility] Comment on above: Performed By: #### U A #### [facility] ([id number]) [address] [place] [address] 36918 Specific gravity (U) [Rel density] 1.010 Normal 1.003-1.[address] [place] [address] Comment on above: Performed By: #### U A #### [facility] ([id number]) [address] [place] [address] 98920 TURBIDITY CLEAR Normal CLEAR [facility] Comment on above: Performed By: #### U A #### [facility] ([id number]) [address] [place] [address] 77209 Urinalysis dipstick W Reflex Microscopic panel (U) URINE RECEIVED WITHOUT PRESERVATIVE-DELAYS IN TRANSPORT MAY AFFECT RESULTS.INTERPRET WITH CAUTION AND CLINICAL CORRELATION IS RECOMMENDED. Normal [facility] Comment on above: Performed By: #### U A #### [facility] ([id number]) [address] [facility], [place] [address] Urobilinogen Qn (U) 0.2 {Ashley'U}/dL Normal <1.1 [facility] Comment on above: Performed By: #### U A #### [facility] ([id number]) [address] [facility], [place] [address] URINE CULTUREon 12-18-2023 Bacteria identified Cx Nom (U) CULTURE RESULTS NO GROWTH AT <1000 CFU/mL Normal [facility] Comment on above: Performed By: #### 6 30-4 #### [facility] ([id number]) [address] [place] [address], [address] [place] [address] Office Visiton 11-26-2023 Follow-up visit [id number] Adwoa Porter 1955 [email or web address] Provider Department Center 11/26/2023 BRYCE TRAORE [facility] Family History Problem Relation Age of Onset Diabetes Mother Hypertension Mother Coronary artery disease Mother Family Status - Relation Status Age at Mother Level of Service:09660 PA OFFICE/OUTPATIENT ESTABLISHED MOD MDM 30 MIN Normal [facility] Glucose - FINGER STICKon Glucose [Mass/Vol] 529 mg/dL AirXpanders Other Office Visiton 09-21-2023 Follow-up visit [id number] Adwoa Porter 1955 [facility] Provider Department Center 09/21/2023 SUSHIL CAO [facility] Family History Problem Relation Age of Onset Diabetes Mother Hypertension Mother Coronary artery disease Mother Family Status - Relation Status Age at Mother Level of Service:45565 PA OFFICE/OUTPATIENT ESTABLISHED MOD MDM 30-39 MIN Reason for Visit and Comments: Follow-up [830725] Congestive Heart Failure [127] Normal [facility] Glucose - FINGER STICKon Glucose [Mass/Vol] 91 mg/dL AirXpanders Other Office Visiton 08-23-2023 Follow-up visit [id number] Adwoa Porter 1955 M Provider Department Center 08/23/2023 MASSIMO DYE RICHY [place] Family History Problem Relation Age of Onset Diabetes Mother Hypertension Mother Coronary artery disease Mother Family Status - Relation Status Age at Mother Level of Service:61636 PA OFFICE/OUTPATIENT ESTABLISHED HIGH MDM 40-54 MIN Reason for Visit and Comments: Wheezing [337107] Hospital Follow-up [832] [facility] Office Visiton 08-15-2023 Follow-up visit [id number] Adwoa Porter 1955 Provider Department Center 08/15/2023 BRYCE TRAORE RICHY [place] Family History Problem Relation Age of Onset Diabetes Mother Hypertension Mother Coronary artery disease Mother Family Status - Relation Status Age at Mother Level of Service:47017 PA OFFICE/OUTPATIENT ESTABLISHED MOD MDM 30-39 MIN [facility] 36on 08-13-2023 36 Pt informed [facility] A1C HEMOGLOBINon 06-29-2023 HbA1c (Bld) [Mass fraction] 7.9 % [facility] Junko Tada Other Glucose - FINGER STICKon Glucose [Mass/Vol] 382 mg/dL [facility] Junko Tada Other HbA1c (Bld) [Mass fraction]o n 06-29-2023 A1C HEMOGLOBIN [facility] Junko Tada Other 36on 06-20-2023 36 His potassium on 05/21 was 2.7. He needs to come to the hospital to receive IV potassium and further treatment as needed [facility] Telephoneon 06-20-2023 Telephone [id number] Adowa Porter 1955 Provider Department Center 06/20/2023 SUSHIL CAO RICHY [place] Family History Problem Relation Age of Onset Diabetes Mother Hypertension Mother Coronary artery disease Mother Family Status - Relation Status Age at Mother [facility] 36on 06-19-2023 36 [facility] lab called to re port a potassium level of 2.7 today. Melissa tried to call patient to remind him of his apt tomorrow but he did not answer and had no voicemail. [facility] 36on 06-18-2023 36 [facility] lab called to re port a critical BNP of 13,277. FYI. [facility] Telephoneon 06-18-2023 Telephone [id number] Adwoa Porter 1955 M Date Provider Department Center 06/18/2023 SUSHIL CAO Family History Problem Relation Age of Onset Diabetes Mother Hypertension Mother Coronary artery disease Mother Family Status - Relation Status Age at Mother [facility] Office Visiton 06-05-2023 Follow-up visit [id number] Adwoa Porter 1955 M Date Provider Department Center 06/05/2023 SUSHIL CAO Family History Problem Relation Age of Onset Diabetes Mother Hypertension Mother Coronary artery disease Mother Family Status - Relation Status Age at Mother Level of Service:91703 PA OFFICE/OUTPATIENT ESTABLISHED MOD MDM 30-39 MIN Reason for Visit and Comments: Follow-up [842213] [facility] PTH INTACTon 04-12-2023 PTH, Intact 50 pg/mL Normal 15-65 [facility] Comment on above: Performed By: #### P THINT ####[facility] [address] [place] [address]DrWesley Navarro HEMOGRAM AND PLATELon 2022 Hematocrit (Bld) [Volume fraction] 42.7 % Normal 42.0-54.0 [facility] Comment on above: Performed By: #### H H ####[facility] [address] [place] [address]DrWesley Navarro Hemoglobin (Bld) [Mass/Vol] 14.3 g/dL Normal 14.0-18.0 [facility] Comment on above: Performed By: #### H H ####[facility] [address] [place] [address]DrWesley Navarro MCH (RBC) [Entitic mass] 29.5 pg Normal 25.9-34.0 [facility] Comment on above: Performed By: #### H H ####[facility] [address] [place] [address]Dr. Emelina Navarro MCHC (RBC) [Mass/Vol] 33.5 g/dL Normal 29.9-35.2 [facility] Comment on above: Performed By: #### H H ####[facility] [address] [place] [address]Dr. Emelina Navarro MCV (RBC) [Entitic vol] 88.2 fL Normal 80.0-94.0 [facility] Comment on above: Performed By: #### H H ####[facility] [address] [place] [address]Dr. Emelina Navarro PLT 278 103/ul Normal 150-450 [facility] Comment on above: Performed By: #### H H ####[facility] [address] [place] [address]Dr. Emelina Navarro RBC 4.84 106/ul Normal 4.70-6.10 [facility] Comment on above: Performed By: #### H H ####[facility] [address] [place] [address]Dr. Emelina Navarro WBC 12.9 103/ul Critically high 4.0-11.0 [facility] Comment on above: Performed By: #### H H ####[facility] [address] [place] [address]Dr. Emelina Navarro MAGNESIUMon 04-11-2023 Magnesium [Mass/Vol] 2.2 mg/dL Normal 1.8-2.4 [facility] Comment on above: Performed By: #### U JOLIE, RENAL, MG ####[facility] [address] [place] [address]Dr. Emelina Ramon RENAL FUNCTION PANELon 04-11 Albumin [Mass/Vol] 3.6 g/dL Normal 3.4-5.[address] [facility] Comment on above: Performed By: #### U JOLIE, RENAL, MG ####[facility] [address] [place] [id number]. Emelina Navarro Calcium [Mass/Vol] 9.5 mg/dL Normal 8.5-10.[address] [facility] Comment on above: Performed By: #### U JOLIE, RENAL, MG ####[facility] [address] [place] [phone]. Emelina Navarro Chloride [Moles/Vol] 95 mmol/L Critically low 98-107 [facility] Comment on above: Performed By: #### U JOLIE, RENAL, MG ####[facility] [address]ms[address] [place] [id number]. Emelina Navarro CO2 [Moles/Vol] 36.4 mmol/L Critically high 21.0-32.0 [facility] Comment on above: Performed By: #### U JOLIE, RENAL, MG ####[facility] [address] [place] [address]Dr. Emelina Navarro Creatinine [Mass/Vol] 1.92 mg/dL Critically high 0.70-1.30 [facility] Comment on above: Performed By: #### U JOLIE, RENAL, MG ####[facility] [address] [place] [phone]. Emelina Navarro EGFR-AF TOGOLESE 42 mL/min/1.73m2 Critically low >=60 [facility] Comment on above: Performed By: #### U JOLIE, RENAL, MG ####[facility] [address] [place] [phone]. Emelina Navarro EGFR-NON AF TOGOLESE 35 mL/min/1.73m2 Critically low >=60 [facility] Comment on above: Performed By: #### U JOLIE, RENAL, MG ####[facility] [address]ne[address] [place] [phone]. Emelina Navarro Glucose [Mass/Vol] 96 mg/dL Normal 74-[address] [facility] Comment on above: Performed By: #### U JOLIE, RENAL, MG ####[facility] [address]kw[address] [place] [phone]. Emelina Navarro Phosphate [Mass/Vol] 4.0 mg/dL Normal 2.6-4.7 [facility] Comment on above: Performed By: #### U JOLIE, RENAL, MG ####[facility] [address] [place] [address]Dr. Emelina Navarro Potassium [Moles/Vol] 3.1 mmol/L Critically low 3.5-5.1 [facility] Comment on above: Performed By: #### U JOLIE, RENAL, MG ####[facility] [address] [place], [place] [address]Dr. Emelina Navarro Sodium [Moles/Vol] 137 mmol/L Normal 136-[address] [facility] Comment on above: Performed By: #### U JOLIE, RENAL, MG ####[facility] [address] [place], [place] [address]Dr. Emelina Navarro Urea nitrogen [Mass/Vol] 31.0 mg/dL Critically high 7.0-18.0 [facility] Comment on above: Performed By: #### U JOLIE, RENAL, MG ####[facility] [address] [place], [place] [address]Dr. Emelina Navarro UA RANDOM W/MICROSCOPICon BACTERIA NONE SEEN Normal NONE SEEN [facility] Comment on above: Performed By: #### U AMIC ####[facility] [address] [place], [place] [address]Dr. Emelina Navarro Bilirubin Ql (U) Negative Normal NEGATIVE [facility] Comment on above: Performed By: #### U AMIC ####[facility] Jcxfqzrfsu[address] [place], [place] [address]Dr. Emelina Navarro CAST NONE SEEN Normal NONE SEEN [facility] Comment on above: Performed By: #### U AMIC ####[facility] Gwdemgwtmu60[address] [place], [place] [address]Dr. Emelina Navarro Clarity (U) CLEAR Normal CLEAR [facility] Comment on above: Performed By: #### U AMIC ####[facility] Hfe[address]rngqe[address] [place] [address]Dr. Emelina Navarro Color (U) LT. YELLOW Normal YELLOW [facility] Comment on above: Performed By: #### U AMIC ####[facility] Vvmtwlwdid[address] [place] [address]Dr. Emelina Navarro Crystals LM Nom (Urine sed) NONE SEEN Normal NONE SEEN [facility] Comment on above: Performed By: #### U AMIC ####[facility] Lwemambeci[address] [place] [address]Dr. Emelina Navarro Epithelial cells LM Ql (Urine sed) FEW Abnormal NONE SEEN /RARE [facility] Comment on above: Performed By: #### U AMIC ####[facility] Kjeuzuzyvn34[address] [place] [address]Dr. Emelina Navarro Glucose Ql (U) 500 mg/dl Abnormal NEGATIVE [facility] Comment on above: Performed By: #### U AMIC ####[facility] Faeotwplst62[address] [place] [address]Dr. Emelina Navarro Hemoglobin Ql (U) Negative Normal NEGATIVE [facility] Comment on above: Performed By: #### U AMIC ####[facility] Bnbnjksjvm694[address] [place], [place] [address]Dr. Awildanitza Navarro Ketones Ql (U) Negative Normal NEGATIVE [facility] Comment on above: Performed By: #### U AMIC ####[facility] Ehojrkhlel9[address] [place], [place] [address]Dr. Awildalan Navarro LEUKOCYTES Negative Normal NEGATIVE [facility] Comment on above: Performed By: #### U AMIC ####[facility] Ecpkxaizhm[address] [place] [address]Dr. Yilan Navarro MUCOUS NONE SEEN Normal NONE SEEN [facility] Comment on above: Performed By: #### U AMIC ####[facility] Iovypumyai67[address] [place] [address]Dr. Emelina Navarro Nitrite Ql (U) Negative Normal NEGATIVE [facility] Comment on above: Performed By: #### U AMIC ####[facility] Hkwktpngmb8237 [place] [address]Dr. Emelina Navarro pH (U) 6.5 [pH] Normal 5-9 [facility] Comment on above: Performed By: #### U AMIC ####[facility] Dcifzhwila[address] [place] [address]Dr. Emelina Navarro RBC NONE SEEN Abnormal 0-2 [facility] Comment on above: Performed By: #### U AMIC ####[facility] Drpqayoulo38[address] [place] [address]Dr. Emelina Navarro SPEC GRAVITY 1.005 Normal 1.005-<=1. 025 [facility] Comment on above: Performed By: #### U AMIC ####[facility] Dmkuehgwew350[address] [place], [place] [address]Dr. Emelina Navarro UA PROTEIN Negative Normal NEGATIVE/ TRACE [facility] Comment on above: Performed By: #### U AMIC ####[facility] Imlguuippu[address] [place] [address]Dr. Emelina Navarro Urobilinogen Qn (U) 0.2 {Ashley'U}/dL Normal 0.2 - 1. 0 [facility] Comment on above: Performed By: #### U AMIC ####[facility] Gninwkewun2225[address] [place], [place] [address]Dr. Emelina Navarro WBC NONE SEEN Normal NONE SEEN [facility] Comment on above: Performed By: #### U AMIC ####[facility] Afphdtzxwk828[address] [place], [place] [address]Dr. Emelina Navarro URIC ACID SERUMon 04-11-2023 Urate [Mass/Vol] 12.2 mg/dL Critically high 3.5-7.2 [facility] Comment on above: Performed By: #### U JOLIE, RENAL, MG ####[facility] Mrqrashpqp9033[address] [place], [place] [address]Dr. Emelina Navarro URINE T PROTEIN CREAT RATIOo n 04-11-2023 Protein (U) [Mass/Vol] 9.3 mg/dL Normal <=12.0 [facility] Comment on above: Performed By: #### U RTPCR ####[facility] Erwxoxhhmn1464[address] [place], [place] [address]Dr. Emelina Navarro UR PROT CREAT RAT 0.[address] [facility] Comment on above: Performed By: #### U RTPCR ####[facility] Iaiirnpdep8834 [place] [address]Dr. Emelina Navarro URINE CREAT 25.00 mg/dL Normal 20.00-300. 00 [facility] Comment on above: Performed By: #### U RTPCR ####[facility] Kghlsxtysm2486 [place] [address]Dr. Emelina Navarro VITAMIN D 25 OHon 04-11-2023 VIT D 25-OH 51.8 ng/mL Normal [facility] Comment on above: Performed By: #### V ITAD ####[facility] Dtneyekvje6[address] [place], [place] [address]Dr. Emelina Navarro VIT D RANGES SEE BELOW Normal [facility] Comment on above: Result Comment: <20 ng/mL Vit D deficient 20 - <30 ng/mL Vit D insufficient 30 - 100 ng/mL Vit D sufficient >100 ng/mL Potential Toxicity Performed By: #### V ITAD ####[facility] Jgaahohutd7485[address] [place], [place] [address]Dr. Emelina Navarro BNPon 03-28-2023 Natriuretic peptide B (Bld) [Mass/Vol] 7479.0 pg/mL Critically high <=900.0 [facility] Comment on above: Performed By: #### B SERVICE RIG OPERATOR, CMP ####[facility] Lyhmkudllb77[address] [place], [place] [address]Dr. Emelina Navarro CBC AUTO DIFFon 03-28-2023 BASO # 0.1 103/ul Normal 0.0-0.1 [facility] Comment on above: Performed By: #### C BC ####[facility] Gqnoniqvxn628[address] [place], [place] [address]Dr. Emelina Navarro Basophils/100 WBC (Bld) 0.5 % Normal 0.2-2.0 [facility] Comment on above: Performed By: #### C BC ####[facility] Qqqxehxnfm964[address] [place], [place] [address]Dr. Emelina Ramon EO # 0.4 103/ul Normal 0.0-0.7 [facility] Comment on above: Performed By: #### C BC ####[facility] Leidxuuxpe[address] [place] [phone]. Emelina Navarro Eosinophils/100 WBC (Bld) 3.7 % Normal 0.9-7.0 [facility] Comment on above: Performed By: #### C BC ####[facility] Xpctykodqe9599 [place] [address]Dr. Emelina Navarro Erythrocyte distribution width (RBC) [Ratio] 18.2 % Critically high 11.0-15.0 [facility] Comment on above: Performed By: #### C BC ####[facility] Gasgrvljbi8723[address] [place], [place] [address]Dr. Emelina Navarro Hematocrit (Bld) [Volume fraction] 39.0 % Critically low 42.0-54.0 [facility] Comment on above: Performed By: #### C BC ####[facility] Jdcyavajed85[address] [place], [place] [address]Dr. Emelina Navarro Hemoglobin (Bld) [Mass/Vol] 12.8 g/dL Critically low 14.0-18.0 [facility] Comment on above: Performed By: #### C BC ####[facility] Matkmaxdat4435[address] [place], [place] [address]Dr. Emelina Navarro IG # 0.05 10e3/ul Critically high 0.00-0.[address] [facility] Comment on above: Performed By: #### C BC ####[facility] Yfofeqvsgt6792 [place] [address]Dr. Emelina Navarro IG % 0.5 % Normal 0.0-0.5 [facility] Comment on above: Performed By: #### C BC ####[facility] Rqdmievvzn6807[address] [place], [place] [address]Dr. Emelina Navarro LYMPH # 1.4 103/ul Normal 1.2-3.8 [facility] Comment on above: Performed By: #### C BC ####[facility] Csiggngpsv1450[address] [place], [place] [address]Dr. Emelina Navarro Lymphocytes/100 WBC (Bld) 13.1 % Critically low 20.5-60.0 [facility] Comment on above: Performed By: #### C BC ####[facility] Eyngladtup6569 [place] [phone]. Emelina Navarro MANUAL DIFF REQ NO Normal [facility] Comment on above: Performed By: #### C BC ####[facility] Gajtiphwnu0572 [place] [phone]. Emelina Navarro MCH (RBC) [Entitic mass] 29.8 pg Normal 25.9-34.0 [facility] Comment on above: Performed By: #### C BC ####[facility] Jqeucbwxnk[address] [place], [place] [address]Dr. Emelina Navarro MCHC (RBC) [Mass/Vol] 32.8 g/dL Normal 29.9-35.2 [facility] Comment on above: Performed By: #### C BC ####[facility] Jkzrdkpany[address] [place], [place] [address]Dr. Emelina Navarro MCV (RBC) [Entitic vol] 90.9 fL Normal 80.0-94.0 [facility] Comment on above: Performed By: #### C BC ####[facility] Zexvskoqkt4304 [place] [phone]. Emelina Navarro MONO # 0.8 103/ul Normal 0.3-0.8 [facility] Comment on above: Performed By: #### C BC ####[facility] Kwgdewsusl4715 [place] [phone]. Awildanitza Navarro Monocytes/100 WBC (Bld) 7.5 % Normal 1.7-12.0 [facility] Comment on above: Performed By: #### C BC ####[facility] Kuqzhjwjfg[address] [place], [place] [address]Dr. Emelina Navarro NEUT # 8.1 103/ul Critically high 1.4-6.5 [facility] Comment on above: Performed By: #### C BC ####[facility] Gptppngsnj[address] [place], [place] [address]Dr. Emelina Navarro Neutrophils/100 WBC (Bld) 74.7 % Normal 43.0-75.0 [facility] Comment on above: Performed By: #### C BC ####[facility] Fadoqltmvk0549 [place] [phone]. Emelina Navarro Platelet mean volume (Bld) [Entitic vol] 10.0 fL Normal 9.5-13.5 [facility] Comment on above: Performed By: #### C BC ####[facility] Ricccjpwoi2410 [place] [phone]. Emelina Navarro PLT 242 103/ul Normal 150-450 [facility] Comment on above: Performed By: #### C BC ####[facility] Mmywydewwq5315 [place] [phone]. Emelina Navarro RBC 4.29 106/ul Critically low 4.70-6.10 [facility] Comment on above: Performed By: #### C BC ####[facility] Gdxfgvqqhq4914 [place] [address]Dr. Emelina Navarro WBC 10.8 103/ul Normal 4.0-11.0 [facility] Comment on above: Performed By: #### C BC ####[facility] Iynkmwjpqt8651 [place] [address]Dr. Emelina Navarro PROF 14(COMP METB)on 023 Albumin [Mass/Vol] 2.7 g/dL Critically low 3.4-5.0 [facility] Comment on above: Performed By: #### B SERVICE RIG OPERATOR, CMP ####[facility] Jzspradybm59[address] [place], [place] [address]Dr. Emelina Navarro Albumin/Globulin [Mass ratio] 0.6 {ratio} Normal [facility] Comment on above: Performed By: #### B SERVICE RIG OPERATOR, CMP ####[facility] Lqiqhgwvvr7474 [place] [address]Dr. Emelina Navarro ALP [Catalytic activity/Vol] 105 U/L Normal 46-116 [facility] Comment on above: Performed By: #### B SERVICE RIG OPERATOR, CMP ####[facility] Ayvbniiwsk8776 [place] [address]Dr. Emelina Navarro ALT [Catalytic activity/Vol] 21 U/L Normal 16-63 [facility] Comment on above: Performed By: #### B SERVICE RIG OPERATOR, CMP ####[facility] Bifgymdkri4724 [place] [phone]. Emelina Navarro Anion gap [Moles/Vol] 11.6 mmol/L Normal [facility] Comment on above: Performed By: #### B SERVICE RIG OPERATOR, CMP ####[facility] Fvcgtmjtsh3635 [place] [phone]. Emelina Navarro AST [Catalytic activity/Vol] 25 U/L Normal 15-37 [facility] Comment on above: Performed By: #### B SERVICE RIG OPERATOR, CMP ####[facility] Ptljtbdtfy5739 [place] [address]Dr. Emelina Navarro Bilirubin [Mass/Vol] 0.8 mg/dL Normal 0.2-1.0 [facility] Comment on above: Performed By: #### B SERVICE RIG OPERATOR, CMP ####[facility] Kuxwyivdqe3070[address] [place], [place] [address]Dr. Emelina Navarro Calcium [Mass/Vol] 8.1 mg/dL Critically low 8.5-10.1 [facility] Comment on above: Performed By: #### B SERVICE RIG OPERATOR, CMP ####[facility] Qzzgukknen4399[address] [place], [place] [address]Dr. Emelina Navarro Chloride [Moles/Vol] 100 mmol/L Normal 98-107 [facility] Comment on above: Performed By: #### B SERVICE RIG OPERATOR, CMP ####[facility] Osxyomdgbv8[address] [place], [place] [address]Dr. Emelina Navarro CO2 [Moles/Vol] 29.2 mmol/L Normal 21.0-32.0 [facility] Comment on above: Performed By: #### B SERVICE RIG OPERATOR, CMP ####[facility] Rijaspgjsh[address] [place], [place] [address]Dr. Emelina Navarro Creatinine [Mass/Vol] 1.66 mg/dL Critically high 0.70-1.30 [facility] Comment on above: Performed By: #### B SERVICE RIG OPERATOR, CMP ####[facility] Zutqimrawi15[address] [place], [place] [address]Dr. Emelina Ramon EGFR-AF TOGOLESE 50 mL/min/1.73m2 Critically low >=60 [facility] Comment on above: Performed By: #### B SERVICE RIG OPERATOR, CMP ####[facility] Qnugpyefdm3806 [place] [address]Dr. Emelina Navarro EGFR-NON AF TOGOLESE 41 mL/min/1.73m2 Critically low >=60 [facility] Comment on above: Performed By: #### B SERVICE RIG OPERATOR, CMP ####[facility] Bpisbfucfs6610 [place] [address]Dr. Emelina Navarro Globulin (S) [Mass/Vol] 4.2 g/dL Normal [facility] Comment on above: Performed By: #### B SERVICE RIG OPERATOR, CMP ####[facility] Bfgtmpyqkm826[address] [place], [place] [address]Dr. Emelina Navarro Glucose [Mass/Vol] 126 mg/dL Critically high 74-106 [facility] Comment on above: Performed By: #### B SERVICE RIG OPERATOR, CMP ####[facility] Xakjuioyur9[address] [place], [place] [address]Dr. Emelina Navarro Potassium [Moles/Vol] 3.8 mmol/L Normal 3.5-5.1 [facility] Comment on above: Performed By: #### B SERVICE RIG OPERATOR, CMP ####[facility] Tphkgfcekv950[address] [place], [place] [address]Dr. Emelina Navarro Protein [Mass/Vol] 6.9 g/dL Normal 6.4-8.[address] [facility] Comment on above: Performed By: #### B SERVICE RIG OPERATOR, CMP ####[facility] Dfanyyzhgi558[address] [place], [place] [address]Dr. Emelina Navarro Sodium [Moles/Vol] 137 mmol/L Normal 136-[address] [facility] Comment on above: Performed By: #### B SERVICE RIG OPERATOR, CMP ####[facility] Sdijgviobr170[address] [place], [place] [address]Dr. Emelina Navarro Urea nitrogen [Mass/Vol] 32.0 mg/dL Critically high 7.0-18.0 [facility] Comment on above: Performed By: #### B SERVICE RIG OPERATOR, CMP ####[facility] Hnkemczmou558[address] [place], [place] [address]Dr. Yilan Navarro Urea nitrogen/Creatinine [Mass ratio] 19.3 mg/mg Normal [facility] Comment on above: Performed By: #### B SERVICE RIG OPERATOR, CMP ####[facility] Eervryqkza510[address] [place], [place] [address]DrWesley Emelina Navarro PROTIMEon 03-28-2023 INR Coag (PPP) [Relative time] 2.59 {INR} Normal [facility] Comment on above: Performed By: #### P T ####[facility] Wvtepaljrv36[address] [place], [place] [address]DrWesley Emelina Ramon INR GUIDELINES SEE BELOW Normal [facility] Comment on above: Result Comment: WENDY RED INR: 2.0 - 3.0 CONDITIONS NOT LISTED BELOW 2.5 - 3.5 FOR PROSTHETIC HEART VALVE REPLACEMENT 2.5 - 3.5 RECURRENT THROMBOSIS Performed By: #### P T ####[facility] Shtsarphqd[address] [place], [place] [address]Wesley Navarro PT Coag (PPP) [Time] 26.0 s Critically high 9.0-11.6 [facility] Comment on above: Performed By: #### P T ####[facility] Scqvomxktz030[address] [place], [place] [address]DrWesley Navarro SED RATE [facility]2022 SED RATE 62 mm/hr Critically high <=20 [facility] Comment on above: Performed By: #### S EDR ####[facility] Jnjuckzdon94[address] [place], [place] [address]DrWesley Emelina Navarro BNPon 03-27-2023 Natriuretic peptide B (Bld) [Mass/Vol] 71873.0 pg/mL Critically high <=900.0 [facility] Comment on above: Performed By: #### B SERVICE RIG OPERATOR ####[facility] Qftxlzmeto[address] [place], [place] [address]DrWesley Navarro CARDIAC IMTIAZ 3-6on 3 CK [Catalytic activity/Vol] 59 U/L Normal 39-308 [facility] Comment on above: Performed By: #### C MREP ####[facility] Rxkthersml0630[address] [place], [place] [address]Dr. Emelina Navarro CK.MB [Mass/Vol] 1.98 ng/mL Normal <=3.60 [facility] Comment on above: Performed By: #### C MREP ####[facility] Gpvzlpscrc1572 [place] [address]Dr. Emelina Navarro HSTROP 52.5 pg/mL Normal 4.0-76.1 [facility] Comment on above: Result Comment: CUT- OFF POINTS HAVE BEEN ESTABLISHED BASED ON THE FOURTH UNIVERSAL DEFINITIONS OF MYOCARDIALINFARCTION. THE UPPER REFERENCE LIMIT (URL) OF TROPONIN, DEFINED THE 99TH PERCENTILE OFcTnI DISTRIBUTION IN A REFERENCE POPULATION, HAS BEEN CONFIRMED THE DECISION THRESHOLDFOR OR DIAGNOSIS. Performed By: #### C MREP ####[facility] [address] [place] [address]. Emelina Navarro CK [Catalytic activity/Vol] 41 U/L Normal 39-308 [facility] Comment on above: Performed By: #### C MREP ####[facility] Quipismjit7436 [place] [address]Dr. Emelina Navarro CK.MB [Mass/Vol] 1.26 ng/mL Normal <=3.60 [facility] Comment on above: Performed By: #### C MREP ####[facility] [address]nuybnbkl[address] [place] [address]. Emelina Navarro HSTROP 49.5 pg/mL Normal 4.0-76.1 [facility] Comment on above: Result Comment: CUT- OFF POINTS HAVE BEEN ESTABLISHED BASED ON THE [facility] UNIVERSAL DEFINITIONS OF MYOCARDIALINFARCTION. THE UPPER REFERENCE LIMIT (URL) OF TROPONIN, DEFINED THE 99TH PERCENTILE OFcTnI DISTRIBUTION IN A REFERENCE POPULATION, HAS BEEN CONFIRMED THE DECISION THRESHOLDFOR OR DIAGNOSIS. Performed By: #### C MREP ####[facility] Npnrtwnrhw6673 [place] [address]Dr. Emelina Navarro CBC AUTO DIFFon 03-27-2023 BASO # 0.0 103/ul Normal 0.0-0.1 [facility] Comment on above: Performed By: #### C BC ####[facility] Osptsckkap[address] [place], [place] [address]Dr. Emelina Navarro Basophils/100 WBC (Bld) 0.3 % Normal 0.2-2.0 [facility] Comment on above: Performed By: #### C BC ####[facility] Qtryppwuaf8516 [place] [address]Dr. Emelina Navarro EO # 0.4 103/ul Normal 0.0-0.7 [facility] Comment on above: Performed By: #### C BC ####[facility] Dofnqkdkgb016[address] [place], [place] [address]Dr. Emelina Navarro Eosinophils/100 WBC (Bld) 3.3 % Normal 0.9-7.0 [facility] Comment on above: Performed By: #### C BC ####[facility] Xafdcftqee[address] [place], [place] [address]Dr. Emelina Navarro Erythrocyte distribution width (RBC) [Ratio] 17.9 % Critically high 11.0-15.0 [facility] Comment on above: Performed By: #### C BC ####[facility] Mgkzakfvcs4[address] [place], [place] [address]Dr. Emelina Navarro Hematocrit (Bld) [Volume fraction] 42.3 % Normal 42.0-54.0 [facility] Comment on above: Performed By: #### C BC ####[facility] Xstfftirtl[address] [place], [place] [address]Dr. Emelina Navarro Hemoglobin (Bld) [Mass/Vol] 13.8 g/dL Critically low 14.0-18.0 [facility] Comment on above: Performed By: #### C BC ####[facility] Ypevipcseg[address] [place], [place] [address]Dr. Emelina Navarro IG # 0.07 10e3/ul Critically high 0.00-0.[address] [facility] Comment on above: Performed By: #### C BC ####[facility] Hrfdmntpbp[address] [place], [place] [address]Dr. Emelina Navarro IG % 0.5 % Normal 0.0-0.5 [facility] Comment on above: Performed By: #### C BC ####[facility] Savvipyhxh9755 [place] [phone]. Emelina Ramon LYMPH # 2.3 103/ul Normal 1.2-3.8 [facility] Comment on above: Performed By: #### C BC ####[facility] Lvwwkxccdr3765 [place] [phone]. Emelina Ramon Lymphocytes/100 WBC (Bld) 17.5 % Critically low 20.5-60.0 [facility] Comment on above: Performed By: #### C BC ####[facility] Gxotewvlhj9419 [place] [phone]. Awildanitza Navarro MANUAL DIFF REQ NO Normal [facility] Comment on above: Performed By: #### C BC ####[facility] Rhetageyer6604 [place] [phone]. Emelina Ramon MCH (RBC) [Entitic mass] 29.3 pg Normal 25.9-34.0 [facility] Comment on above: Performed By: #### C BC ####[facility] Gypubeuzjl8019 [place] [address]Dr. Emelina Ramon MCHC (RBC) [Mass/Vol] 32.6 g/dL Normal 29.9-35.2 [facility] Comment on above: Performed By: #### C BC ####[facility] Mrimuyzubx2805 [place] [phone]. Emelina Ramon MCV (RBC) [Entitic vol] 89.8 fL Normal 80.0-94.0 [facility] Comment on above: Performed By: #### C BC ####[facility] Slpqxfyzvc7524 [place] [phone]. Emelina Ramon MONO # 1.0 103/ul Critically high 0.3-0.8 [facility] Comment on above: Performed By: #### C BC ####[facility] Tugegchjpz9219 [place] [phone]. Awildanitza Navarro Monocytes/100 WBC (Bld) 7.8 % Normal 1.7-12.0 [facility] Comment on above: Performed By: #### C BC ####[facility] Vabrzykvmd9555 [place] [phone]. Emelina Navarro NEUT # 9.3 103/ul Critically high 1.4-6.5 [facility] Comment on above: Performed By: #### C BC ####[facility] Svdscnhzhp5405 [place] [phone]. Emelina Navarro Neutrophils/100 WBC (Bld) 70.6 % Normal 43.0-75.0 [facility] Comment on above: Performed By: #### C BC ####[facility] Jgrnqxxcut6732 [place] [address]Dr. Emelina Navarro Platelet mean volume (Bld) [Entitic vol] 9.6 fL Normal 9.5-13.5 [facility] Comment on above: Performed By: #### C BC ####[facility] Xyzlqcczdo4608 [place] [address]Dr. Emelina Navarro PLT 248 103/ul Normal 150-450 [facility] Comment on above: Performed By: #### C BC ####[facility] Eroysjsgyz[address] [place], [place] [address]Dr. Emelina Navarro RBC 4.71 106/ul Normal 4.70-6.10 [facility] Comment on above: Performed By: #### C BC ####[facility] Ibauljngtu1909 [place] [phone]. Emelina Navarro WBC 13.2 103/ul Critically high 4.0-11.0 [facility] Comment on above: Performed By: #### C BC ####[facility] Irckdlrkuw4306 [place] [address]Dr. Emelina Navarro DIGOXINon 03-27-2023 DIG 1.1 ng/mL Normal 0.9-2.0 [facility] Comment on above: Performed By: #### D IG ####[facility] [address]nueoqzjiy[address] [place], [place] [address]Dr. Emelina Navarro LACTATE/LACTIC ACIDon 2022 Lactate [Moles/Vol] 0.8 mmol/L Normal 0.4-2.0 [facility] Comment on above: Performed By: #### L ACT ####[facility] Ulyswlxxef2541 [place] [phone]. Emelina Navarro LIPID PROFILEon 03-27-2023 CHOL-HDL RATIO NORM SEE BELOW Normal [facility] Comment on above: Result Comment: 3.3 - 4.4 LOW RISK 4.4 - 7.1 AVERAGE RISK 7.1 - 11.0 MODERATE RISK >11.0 HIGH RISK Performed By: #### L IPID, TSH ####[facility] Nueegrahte2995 [place] [phone]. Emelina Navarro Cholesterol [Mass/Vol] 86 mg/dL Normal <=200 [facility] Comment on above: Performed By: #### L IPID, TSH ####[facility] Gxhpoozluo6890 [place] [address]Dr. Emelina Navarro Cholesterol in HDL [Mass/Vol] 29 mg/dL Critically low 40-60 [facility] Comment on above: Performed By: #### L IPID, TSH ####[facility] Azxhscztib8177 [place] [address]Dr. Emelina Navarro Cholesterol in LDL [Mass/Vol] 37.8 mg/dL Normal [facility] Comment on above: Performed By: #### L IPID, TSH ####[facility] Jmxbtbwqfp3625 [place] [phone]. Emelina Navarro Cholesterol.total/Cho lesterol in HDL [Mass ratio] 3.0 {ratio} Normal [facility] Comment on above: Performed By: #### L IPID, TSH ####[facility] [address] [place] [id number]. Emelina Navarro HDL NORMAL > or = 60 mg/dl - LO W CARDIOVASCULAR RISK <40 mg/dl - HIGH CARDIOVASCULAR RISK Normal [facility] Comment on above: Performed By: #### L IPID, TSH ####[facility] [address] [place] [address]Dr. Awildanitza Navarro LDL CALC NORMAL SEE BELOW Normal [facility] Comment on above: Result Comment: <100 mg/dl OPTIMAL 100 - 129 mg/dl NEAR OR ABOVE OPTIMAL 130 - 159 mg/dl BORDERLINE HIGH 160 - 189 mg/dl HIGH >190 mg/dl VERY HIGH Performed By: #### L IPID, TSH ####[facility] [address] [place] [address]Dr. Emelina Navarro Triglyceride [Mass/Vol] 96 mg/dL Normal <=150 [facility] Comment on above: Performed By: #### L IPID, TSH ####[facility] [address] [place] [address]Dr. Emelina Navarro VLDL CALC 19.2 mg/dL Normal [facility] Comment on above: Performed By: #### L IPID, TSH ####[facility] [address]ug[address] [place] [address]Dr. Emelina Navarro POINT OF CARE GLUCOSEon Glucose [Mass/Vol] 175 mg/dL Critically high 74-106 [facility] Comment on above: Performed By: #### P OCGLUC ####[facility] [address] [place] [address]Dr. Emelina Navarro Glucose [Mass/Vol] 196 mg/dL Critically high 74-106 [facility] Comment on above: Performed By: #### P OCGLUC ####[facility] [address] [place], [place] [address]Dr. Emelina Navarro PROF 14(COMP METB)on 023 Albumin [Mass/Vol] 2.9 g/dL Critically low 3.4-5.0 [facility] Comment on above: Performed By: #### C MP ####[facility] [address] [place] [address]Dr. Emelina Navarro Albumin/Globulin [Mass ratio] 0.6 {ratio} Normal [facility] Comment on above: Performed By: #### C MP ####[facility] Sdxeoev[address] [place], [place] [address]Dr. Emelina Navarro ALP [Catalytic activity/Vol] 112 U/L Normal 46-116 [facility] Comment on above: Performed By: #### C MP ####[facility] [address] [place] [address]Dr. Emelina Navarro ALT [Catalytic activity/Vol] 23 U/L Normal 16-63 [facility] Comment on above: Performed By: #### C MP ####[facility] [address] [place] [address]Dr. Awildanitza Navarro Anion gap [Moles/Vol] 9.5 mmol/L Normal [facility] Comment on above: Performed By: #### C MP ####[facility] [address]quxrod[address] [place] [address]Dr. Emelina Ramon AST [Catalytic activity/Vol] 30 U/L Normal 15-37 [facility] Comment on above: Performed By: #### C MP ####[facility] Umpauwkj[address] [place], [place] [address]Dr. Emelina Navarro Bilirubin [Mass/Vol] 0.8 mg/dL Normal 0.2-1.0 [facility] Comment on above: Performed By: #### C MP ####[facility] Uqgptege[address] [place], [place] [address]Dr. Emelina Navarro Calcium [Mass/Vol] 8.2 mg/dL Critically low 8.5-10.1 [facility] Comment on above: Performed By: #### C MP ####[facility] Qkze[address]rsl[address] [place], [place] [address]Dr. Emelina Navarro Chloride [Moles/Vol] 100 mmol/L Normal 98-107 [facility] Comment on above: Performed By: #### C MP ####[facility] N[address]it[address]weyl[address] [place], [place] [address]Dr. Emelina Navarro CO2 [Moles/Vol] 32.9 mmol/L Critically high 21.0-32.0 [facility] Comment on above: Performed By: #### C MP ####[facility] [address]bos[address] [place], [place] [address]Dr. Emelina Navarro Creatinine [Mass/Vol] 1.60 mg/dL Critically high 0.70-1.30 [facility] Comment on above: Performed By: #### C MP ####[facility] K[address]qs[address] [place], [place] [address]Dr. Emelina Navarro EGFR-AF TOGOLESE 52 mL/min/1.73m2 Critically low >=60 [facility] Comment on above: Performed By: #### C MP ####[facility] [address] [place] [address]Dr. Emelina Ramon EGFR-NON AF TOGOLESE 43 mL/min/1.73m2 Critically low >=60 [facility] Comment on above: Performed By: #### C MP ####[facility] [address]fh[address] [place] [address]Dr. Emelina Navarro Globulin (S) [Mass/Vol] 4.6 g/dL Normal [facility] Comment on above: Performed By: #### C MP ####[facility] [address] [place] [address]Dr. Emelina Navarro Glucose [Mass/Vol] 76 mg/dL Normal 74-106 [facility] Comment on above: Performed By: #### C MP ####[facility] Dhfedvennc19[address] [place], [place] [address]Dr. Emelina Navarro Potassium [Moles/Vol] 3.4 mmol/L Critically low 3.5-5.1 [facility] Comment on above: Performed By: #### C MP ####[facility] Bjfyvjsjvy[address] [place], [place] [address]Dr. Emelina Navarro Protein [Mass/Vol] 7.5 g/dL Normal 6.4-8.[address] [facility] Comment on above: Performed By: #### C MP ####[facility] Hdvtapdilz[address] [place], [place] [address]Dr. Emelina Navarro Sodium [Moles/Vol] 139 mmol/L Normal 136-[address] [facility] Comment on above: Performed By: #### C MP ####[facility] Znkxchaxhp[address] [place], [place] [address]Dr. Emelina Navarro Urea nitrogen [Mass/Vol] 30.0 mg/dL Critically high 7.0-18.0 [facility] Comment on above: Performed By: #### C MP ####[facility] Erwnbdnzyl[address] [place], [place] [address]Dr. Emelina Navarro Urea nitrogen/Creatinine [Mass ratio] 18.8 mg/mg Normal [facility] Comment on above: Performed By: #### C MP ####[facility] [address] [place] [address]Dr. Emelina Navarro PROTIMEon 03-27-2023 INR Coag (PPP) [Relative time] 2.58 {INR} Normal [facility] Comment on above: Performed By: #### P T ####[facility] Rxumffesiz[address] [place], [place] [address]DrWesley Navarro INR GUIDELINES SEE BELOW Normal [facility] Comment on above: Result Comment: WENDY RED INR: 2.0 - 3.0 CONDITIONS NOT LISTED BELOW 2.5 - 3.5 FOR PROSTHETIC HEART VALVE REPLACEMENT 2.5 - 3.5 RECURRENT THROMBOSIS Performed By: #### P T ####[facility] [address] [place], [place] [address]Dr. Emelina Navarro PT Coag (PPP) [Time] 25.9 s Critically high 9.0-11.6 [facility] Comment on above: Performed By: #### P T ####[facility] Pw[address] [place], [place] [address]Dr. Awildanitza Navarro T4on 03-27-2023 T4 [Mass/Vol] 6.50 ug/dL Normal 4.50-12.10 [facility] Comment on above: Performed By: #### T 4 ####[facility] Mix[address]imseuf[address] [place], [place] [address]DrWesley Navarro TSHon 03-27-2023 TSH 5.619 uIU/mL Critically high 0.358-3.74 0 [facility] Comment on above: Performed By: #### L IPID, TSH ####[facility] Oilvnq[address]ls[address] [place], [place] [address]DrWesley Navarro US FERNY DOP LEG RTon 03-27-20 23 US FERNY DOP LEG RT Normal [facility] XR CHEST 1 Von 03-27-2023 XR CHEST 1 V Normal [facility] XR FOOT RT MIN 3 VIEWSon XR FOOT RT MIN 3 VIEWS Normal [facility] BNPon 03-26-2023 Natriuretic peptide B (Bld) [Mass/Vol] 80727.0 pg/mL Critically high <=900.0 [facility] Comment on above: Performed By: #### B MP, CRP, CMADM, BNP ####[facility] [address]fsfs[address] [place] [address]Dr. Emelina Navarro CARDIAC IMTIAZ ADMITon 023 CK [Catalytic activity/Vol] 48 U/L Normal 39-308 [facility] Comment on above: Performed By: #### B MP, CRP, CMADM, BNP ####[facility] [address] [place] [address]Dr. Emelina Navarro CK.MB [Mass/Vol] 1.48 ng/mL Normal <=3.60 [facility] Comment on above: Performed By: #### B MP, CRP, CMADM, BNP ####[facility] [address] [place] [address]Dr. Emelina Navarro HSTROP 49.9 pg/mL Normal 4.0-76.1 [facility] Comment on above: Result Comment: CUT- OFF POINTS HAVE BEEN ESTABLISHED BASED ON THE FOURTH UNIVERSAL DEFINITIONS OF MYOCARDIALINFARCTION. THE UPPER REFERENCE LIMIT (URL) OF TROPONIN, DEFINED THE 99TH PERCENTILE OFcTnI DISTRIBUTION IN A REFERENCE POPULATION, HAS BEEN CONFIRMED THE DECISION THRESHOLDFOR OR DIAGNOSIS. Performed By: #### B MP, CRP, CMADM, BNP ####[facility] [address] [place] [address]Dr. Emelina Navarro URBANO 117 ng/mL Critically high 16-96 [facility] Comment on above: Performed By: #### B MP, CRP, CMADM, BNP ####[facility] [address] [place] [address]Dr. Emelina Navarro CBC AUTO DIFFon 03-26-2023 BASO # 0.1 103/ul Normal 0.0-0.1 [facility] Comment on above: Performed By: #### C BC ####[facility] [address] [place] [address]Dr. Emelina Navarro Basophils/100 WBC (Bld) 0.4 % Normal 0.2-2.0 [facility] Comment on above: Performed By: #### C BC ####[facility] [address] [place] [address]Dr. Emelina Navarro EO # 0.5 103/ul Normal 0.0-0.7 [facility] Comment on above: Performed By: #### C BC ####[facility] [address]ju[address] [place], [place] [address]Dr. Emelina Navarro Eosinophils/100 WBC (Bld) 3.5 % Normal 0.9-7.0 [facility] Comment on above: Performed By: #### C BC ####[facility] Fovwwxbnte[address] [place], [place] [address]Dr. Emelina Navarro Erythrocyte distribution width (RBC) [Ratio] 17.7 % Critically high 11.0-15.0 [facility] Comment on above: Performed By: #### C BC ####[facility] Odvsnynyfh[address] [place], [place] [address]Dr. Emelina Navarro Hematocrit (Bld) [Volume fraction] 42.6 % Normal 42.0-54.0 [facility] Comment on above: Performed By: #### C BC ####[facility] Bxmggkurkd[address] [place], [place] [address]Dr. Emelina Navarro Hemoglobin (Bld) [Mass/Vol] 14.2 g/dL Normal 14.0-18.0 [facility] Comment on above: Performed By: #### C BC ####[facility] Jqtqntydmu[address] [place], [place] [address]Dr. Emelina Navarro IG # 0.09 10e3/ul Critically high 0.00-0.[address] [facility] Comment on above: Performed By: #### C BC ####[facility] Ogpfnvmrhr[address] [place], [place] [address]Dr. Emelina Navarro IG % 0.7 % Critically high 0.0-0.5 [facility] Comment on above: Performed By: #### C BC ####[facility] S[address]vow[address]knku[address] [place], [place] [address]Dr. Emelina Navarro LYMPH # 2.3 103/ul Normal 1.2-3.8 [facility] Comment on above: Performed By: #### C BC ####[facility] [address]raxxuf[address] [place] [address]Dr. Emelina Navarro Lymphocytes/100 WBC (Bld) 17.3 % Critically low 20.5-60.0 [facility] Comment on above: Performed By: #### C BC ####[facility] [address]air[address] [place] [address]Dr. Emelina Navarro MANUAL DIFF REQ NO Normal [facility] Comment on above: Performed By: #### C BC ####[facility] [address] [place] [address]Dr. Emelina Navarro MCH (RBC) [Entitic mass] 29.6 pg Normal 25.9-34.0 [facility] Comment on above: Performed By: #### C BC ####[facility] Ugkzwakvjk[address] [place], [place] [address]Dr. Emelina Navarro MCHC (RBC) [Mass/Vol] 33.3 g/dL Normal 29.9-35.2 [facility] Comment on above: Performed By: #### C BC ####[facility] Pinvibmbyi[address] [place], [place] [address]Dr. Emelina Navarro MCV (RBC) [Entitic vol] 88.9 fL Normal 80.0-94.0 [facility] Comment on above: Performed By: #### C BC ####[facility] Xrksfeagzq[address] [place], [place] [address]Dr. Emelina Navarro MONO # 1.3 103/ul Critically high 0.3-0.8 [facility] Comment on above: Performed By: #### C BC ####[facility] Hcinduhjrs[address] [place], [place] [address]Dr. Emelina Navarro Monocytes/100 WBC (Bld) 9.7 % Normal 1.7-12.0 [facility] Comment on above: Performed By: #### C BC ####[facility] Fhomkllmzt[address] [place], [place] [address]Dr. Emelina Navarro NEUT # 9.2 103/ul Critically high 1.4-6.5 [facility] Comment on above: Performed By: #### C BC ####[facility] X[address]te[address]wm[address] [place] [address]Dr. Emelina Navarro Neutrophils/100 WBC (Bld) 68.4 % Normal 43.0-75.0 [facility] Comment on above: Performed By: #### C BC ####[facility] [address]qq[address] [place] [address]Dr. Emelina Navarro Platelet mean volume (Bld) [Entitic vol] 9.6 fL Normal 9.5-13.5 [facility] Comment on above: Performed By: #### C BC ####[facility] [address] [place] [address]Dr. Emelina Navarro PLT 271 103/ul Normal 150-450 [facility] Comment on above: Performed By: #### C BC ####[facility] Bixwpzscmh66[address] [place], [place] [address]Dr. Emelina Navarro RBC 4.79 106/ul Normal 4.70-6.10 [facility] Comment on above: Performed By: #### C BC ####[facility] Caxbflkfvg[address] [place], [place] [address]Dr. Emelina Navarro WBC 13.4 103/ul Critically high 4.0-11.0 [facility] Comment on above: Performed By: #### C BC ####[facility] [address]jd[address] [place] [address]Dr. Emelina Navarro CRPon 03-26-2023 CRP 4.6 mg/dL Critically high <=1.0 [facility] Comment on above: Performed By: #### B MP, CRP, CMADM, BNP ####[facility] [address] [place] [address]Dr. Emelina Navarro LACTATE/LACTIC ACIDon 2022 Lactate [Moles/Vol] 1.6 mmol/L Normal 0.4-2.0 [facility] Comment on above: Performed By: #### L ACT ####[facility] [address] [place] [address]Dr. Awildanitza Navarro PROF CHEM 8 (BAS METB)on Anion gap [Moles/Vol] 9.6 mmol/L Normal [facility] Comment on above: Performed By: #### B MP, CRP, CMADM, BNP ####[facility] [address] [place] [address]Dr. Emelina Navarro Calcium [Mass/Vol] 8.4 mg/dL Critically low 8.5-10.1 [facility] Comment on above: Performed By: #### B MP, CRP, CMADM, BNP ####[facility] Leezvvxfmz23[address] [place], [place] [address]Dr. Emelina Navarro Chloride [Moles/Vol] 102 mmol/L Normal 98-107 [facility] Comment on above: Performed By: #### B MP, CRP, CMADM, BNP ####[facility] Z[address]qlhtrpdw[address] [place], [place] [address]Dr. Emelina Navarro CO2 [Moles/Vol] 30.9 mmol/L Normal 21.0-32.0 [facility] Comment on above: Performed By: #### B MP, CRP, CMADM, BNP ####[facility] Ukcgkexitt[address] [place], [place] [address]Dr. Emelina Navarro Creatinine [Mass/Vol] 1.73 mg/dL Critically high 0.70-1.30 [facility] Comment on above: Performed By: #### B MP, CRP, CMADM, BNP ####[facility] Tujiq[address]org[address] [place], [place] [address]Dr. Emelina Navarro EGFR-AF TOGOLESE 48 mL/min/1.73m2 Critically low >=60 [facility] Comment on above: Performed By: #### B MP, CRP, CMADM, BNP ####[facility] Qmeuodyfxn[address] [place], [place] [address]Dr. Emelina Navarro EGFR-NON AF TOGOLESE 39 mL/min/1.73m2 Critically low >=60 [facility] Comment on above: Performed By: #### B MP, CRP, CMADM, BNP ####[facility] [address]oeos[address] [place] [address]Dr. Emelina Navarro Glucose [Mass/Vol] 73 mg/dL Critically low 74-106 [facility] Comment on above: Performed By: #### B MP, CRP, CMADM, BNP ####[facility] Bxljekxnfs[address] [place] [address]Dr. Emelina Navarro Potassium [Moles/Vol] 3.5 mmol/L Normal 3.5-5.1 [facility] Comment on above: Performed By: #### B MP, CRP, CMADM, BNP ####[facility] K[address]ofuxlu[address] [place] [address]Dr. Emelina Navarro Sodium [Moles/Vol] 139 mmol/L Normal 136-145 [facility] Comment on above: Performed By: #### B MP, CRP, CMADM, BNP ####[facility] [address]ds[address]mbrej[address] [place] [address]Dr. Emelina Navarro Urea nitrogen [Mass/Vol] 29.0 mg/dL Critically high 7.0-18.0 [facility] Comment on above: Performed By: #### B MP, CRP, CMADM, BNP ####[facility] [address]elxj[address] [place] [address]Dr. Emelina Navarro Urea nitrogen/Creatinine [Mass ratio] 16.8 mg/mg Normal [facility] Comment on above: Performed By: #### B MP, CRP, CMADM, BNP ####[facility] Tty[address]btyz[address] [place] [address]Dr. Emelina Navarro SED RATE MACONERGRENon 2022 SED RATE 60 mm/hr Critically high <=20 [facility] Comment on above: Performed By: #### S EDR ####[facility] Lxahjhecqw[address] [place], [place] [address]Dr. Emelina Navarro Office Visiton 03-21-2023 Follow-up visit [id number] Adwoa Porter 1955 M Date Provider Department Center 03/21/2023 [id number] MOBLEY [facility] Family History Problem Relation Age of Onset Diabetes Mother Hypertension Mother Coronary artery disease Mother Family Status - Relation Status Age at Mother Level of Service:41804 PA OFFICE/OUTPATIENT ESTABLISHED MOD MDM 30-39 MIN Normal [facility] Basic Metabolic Panelon 040 Anion gap [Moles/Vol] 13.7 mmol/L Normal 6.0-15.0 [facility] Comment on above: Order Comment: Comme nt add on if possible Performed By: #### M G #### [facility] [address] Calcium [Mass/Vol] 9.2 mg/dL Normal 8.6-10.3 [facility] Comment on above: Order Comment: Comme nt add on if possible Result Comment: PERF ORMED BY: [place] [address] PATHOLOGIST RESCUE BOAT OPERATOR RAFA BYRNE M.D. Performed By: #### M G #### [facility] [address] [place] [address] [place] Chloride [Moles/Vol] 94 mmol/L Low 98-107 [facility] Comment on above: Order Comment: Comme nt add on if possible Performed By: #### M G #### [facility] [address] [place] [address] [place] CO2 [Moles/Vol] 31.1 mmol/L High 21.0-31.0 [facility] Comment on above: Order Comment: Comme nt add on if possible Performed By: #### M G #### [facility] [address] [place] [address] [place] Creatinine [Mass/Vol] 1.57 mg/dL High 0.70-1.30 [facility] Comment on above: Order Comment: Comme nt add on if possible Performed By: #### M G #### [facility] [address] [place] [address] [place] GFR/1.73 sq M.predicted MDRD (S/P/Bld) [Vol rate/Area] 47.712 mL/min/{1.73_m2} Normal [facility] Comment on above: Order Comment: Comme nt add on if possible Performed By: #### M G #### [facility] [address] [place] [id number] [place] Glucose [Mass/Vol] 67 mg/dL Low 70-100 [facility] Comment on above: Order Comment: Comme nt add on if possible Result Comment: [facility] Glucose Reference Range is dependent on time and content of last meal. Glucose of more than 200 mg/dL in a nonstressed, ambulatory subject supports the diagnosis of Diabetes Mellitus. ADA recommended reference range Performed By: #### M G #### [facility] [address] Potassium [Moles/Vol] 3.8 mmol/L Normal 3.5-5.1 [facility] Comment on above: Order Comment: Comme nt add on if possible Performed By: #### M G #### [facility] [address] [place] [id number] [place] Sodium [Moles/Vol] 135 mmol/L Low 136-145 [facility] Comment on above: Order Comment: Comme nt add on if possible Performed By: #### M G #### [facility] [address] [place] [id number] [place] Urea nitrogen [Mass/Vol] 25 mg/dL Normal 7-[address] [facility] Comment on above: Order Comment: Comme nt add on if possible Performed By: #### M G #### [facility] [address] [place] [id number] [place] Calcium [Mass/volume] in Ser um or PlasmaOrdered By: Yakov To on 02-21-2023 Calcium [Mass/Vol] 9.2 mg/dL 8.6-10.3 [facility] Carbon dioxide, total [Moles /volume] in Serum or PlasmaOrdered By: Yakov To on 02-21-2023 CO2 [Moles/Vol] 31.1 mmol/L 21.0-31.0 [facility] Chloride [Moles/volume] in S mary or PlasmaOrdered By: Yakov To on 02-21-2023 Chloride [Moles/Vol] 94 mmol/L 98-107 [facility] Creatinine [Mass/volume] in Serum or PlasmaOrdered By: Yakov To on 02-21-2023 Creatinine [Mass/Vol] 1.57 mg/dL 0.70-1.30 [facility] Glucose [Mass/volume] in Ser um or PlasmaOrdered By: Yakov To on 02-21-2023 Glucose [Mass/Vol] 67 mg/dL 70-100 [facility] Comment on above: ADA recommended refe rence rangeRandom Glucose Reference Range is dependent on time and content of last meal. Glucose of more than 200 mg/dL in a nonstressed, ambulatory subject supports the diagnosis of Diabetes Mellitus. No Panel InformationOrdered By: Yakov To on 02-21-2023 Estimated GFR (CKD-EPI) 47.712 mL/Min [facility] Creatinine Clearance (Chem N/A [facility] Potassium [Moles/volume] in Serum or PlasmaOrdered By: Yakov To on 02-21-2023 Potassium [Moles/Vol] 3.8 mmol/L 3.5-5.1 [facility] Serum or plasma anion gap de terminationOrdered By: Yakov To on 02-21-2023 Anion gap [Moles/Vol] 13.7 mmol/L 6.0-15.0 [facility] Sodium [Moles/volume] in Ser um or PlasmaOrdered By: Yakov To on 02-21-2023 Sodium [Moles/Vol] 135 mmol/L 136-145 [facility] Urea nitrogen [Mass/volume] in Serum or PlasmaOrdered By: Yakov To on 02-21-2023 Urea nitrogen [Mass/Vol] 25 mg/dL 7-[address] [facility] A1C with Estimated Average G geronimon 02-14-2023 Glucose [Mass/Vol] 252 mg/dL Normal [facility] Comment on above: Result Comment: PERF ORMED BY: [facility] [address] [place] [address] PATHOLOGIST RESCUE BOAT OPERATOR RAFA BYRNE M.D. Performed By: #### B MP, MG, A1C [facility] #### [facility] [address] HbA1c (Bld) [Mass fraction] 10.4 % High 4.3-5.[address] [facility] Comment on above: Result Comment: Incr eased risk for diabetes: 5.7 - 6.4 diabetes: >6.4 glycemic control for adults with diabetes: <7.0 Performed By: #### B MP, MG, A1C WTH eA #### [facility] [address] Basic Metabolic Panelon 03-2 Anion gap [Moles/Vol] 13.4 mmol/L Normal 6.0-15.0 [facility] Comment on above: Performed By: #### B MP, MG, A1C WTH eA #### [facility] [address] Calcium [Mass/Vol] 9.1 mg/dL Normal 8.6-10.3 [facility] Comment on above: Performed By: #### B MP, MG, A1C WTH eA #### [facility] [address] Chloride [Moles/Vol] 95 mmol/L Low 98-107 [facility] Comment on above: Performed By: #### B MP, MG, A1C WTH eA #### [facility] [address] CO2 [Moles/Vol] 30.7 mmol/L Normal 21.0-31.0 [facility] Comment on above: Performed By: #### B MP, MG, A1C WTH eA #### [facility] [address] [place] [address] [place] Creatinine [Mass/Vol] 1.65 mg/dL High 0.70-1.30 [facility] Comment on above: Performed By: #### B MP, MG, A1C WTH eA #### [facility] [address] [place] [address] [place] Creatinine Clr Calc Pharmacy 49.[address] [facility] Comment on above: Performed By: #### B MP, MG, A1C WTH eA #### [facility] [address] [place] [address] [place] GFR/1.73 sq M.predicted MDRD (S/P/Bld) [Vol rate/Area] 44.950 mL/min/{1.73_m2} Normal [facility] Comment on above: Performed By: #### B MP, MG, A1C WTH eA #### [facility] [address] [place] [address] [place] Glucose [Mass/Vol] 193 mg/dL Significant change up 70-[address] [facility] Comment on above: Result Comment: [facility] Glucose Reference Range is dependent on time and content of last meal. Glucose of more than 200 mg/dL in a nonstressed, ambulatory subject supports the diagnosis of Diabetes Mellitus. ADA recommended reference range Performed By: #### B MP, MG, A1C WTH eA #### [facility] [address] [place] [address] [place] Potassium [Moles/Vol] 3.1 mmol/L Low 3.5-5.1 [facility] Comment on above: Performed By: #### B MP, MG, A1C WTH eA #### [facility] [address] [place] [address] [place] Sodium [Moles/Vol] 136 mmol/L Significant change down 136-[address] [facility] Comment on above: Performed By: #### B MP, MG, A1C WTH eA #### [facility] [address] [place] [address] [place] Urea nitrogen [Mass/Vol] 43 mg/dL High 7-[address] [facility] Comment on above: Performed By: #### B MP, MG, A1C WTH eA #### [facility] [address] [place] [address] [place] Calcium [Mass/volume] in Ser um or PlasmaOrdered By: Yakov To on 02-14-2023 Calcium [Mass/Vol] 9.1 mg/dL 8.6-10.3 [facility] Carbon dioxide, total [Moles /volume] in Serum or PlasmaOrdered By: Yakov To on 02-14-2023 CO2 [Moles/Vol] 30.7 mmol/L 21.0-31.0 [facility] Chloride [Moles/volume] in S mary or PlasmaOrdered By: Yakov To on 02-14-2023 Chloride [Moles/Vol] 95 mmol/L 98-107 [facility] Creatinine [Mass/volume] in Serum or PlasmaOrdered By: Yakov To on 02-14-2023 Creatinine [Mass/Vol] 1.65 mg/dL 0.70-1.30 [facility] Glucose Glucometer (BldC) [M ass/Vol]Ordered By: Yakov To on 02-14-2023 Glucose [Mass/Vol] 197 mg/dL [facility] Comment on above: Random Glucose Refer ence Range is dependent on time and content of last meal. Glucose of more than 200 mg/dL in a nonstressed, ambulatory subject supports the diagnosis of Diabetes Mellitus. Glucose Poct Glucometerson 0 02-14-2023 Glucose [Mass/Vol] 197 mg/dL Normal [facility] Comment on above: Result Comment: [place] Glucose Reference Range is dependent on time and content of last meal. Glucose of more than 200 mg/dL in a nonstressed, ambulatory subject supports the diagnosis of Diabetes Mellitus. PERFORMED BY: [place] [address] PATHOLOGIST RESCUE BOAT OPERATOR RAFA BYRNE M.D. Performed By: #### U A #### [address] [address] [facility] Glucose [Mass/Vol] 350 mg/dL Normal [facility] Comment on above: Result Comment: [place] om Glucose Reference Range is dependent on time and content of last meal. Glucose of more than 200 mg/dL in a nonstressed, ambulatory subject supports the diagnosis of Diabetes Mellitus. PERFORMED BY: [place] [address] PATHOLOGIST RESCUE BOAT OPERATOR RAFA BYRNE M.D. Performed By: #### U A #### [facility] [address] [place] [address] [facility] Glucose [Mass/Vol] 216 mg/dL Normal [facility] Comment on above: Result Comment: [place] om Glucose Reference Range is dependent on time and content of last meal. Glucose of more than 200 mg/dL in a nonstressed, ambulatory subject supports the diagnosis of Diabetes Mellitus. PERFORMED BY: [facility] [place] [address] PATHOLOGIST RESCUE BOAT OPERATOR RAFA BYRNE M.D. Performed By: #### G LULS #### Point of Care testing , Glucose [Mass/volume] in Ser um or PlasmaOrdered By: Yakov To on 02-14-2023 Glucose [Mass/Vol] 193 mg/dL 70-100 [facility] Comment on above: Delta: 400 [...] from glycated hemoglobin (Bld) [Mass/Vol] 252 mg/dL [facility] Hemoglobin A1c percentageOrd ered By: Yakov To on 02-14-2023 HbA1c (Bld) [Mass fraction] 10.4 % 4.3-5.[address] [facility] Comment on above: Increased risk for d iabetes: 5.7 - 6.4diabetes: >6.4glycemic control for adults with diabetes: <7.0 Laboratory - Chemistry and C hemistry - challengeOrdered By: Yakov To on 02-14-2023 GFR/1.73 sq M.predicted MDRD (S/P/Bld) [Vol rate/Area] 44.950 mL/min/{1.73_m2} [facility] Laboratory - CoagulationOrde red By: Yakov To on 02-14-2023 PT Coag (PPP) [Time] 25.6 s 9.0-12.9 [facility] Magnesiumon 02-14-2023 Magnesium [Mass/Vol] 2.4 mg/dL Normal 1.9-2.7 [facility] Comment on above: Result Comment: PERF ORMED BY: [facility] [address] [place] [address] PATHOLOGIST RESCUE BOAT OPERATOR RAFA BYRNE M.D. Performed By: #### B MP, MG, A1C WTH eA #### [facility] [address] Magnesium [Mass/volume] in S mary or PlasmaOrdered By: Yakov To on 02-14-2023 Magnesium [Mass/Vol] 2.4 mg/dL 1.9-2.7 [facility] No Panel InformationOrdered By: Yakov To on 02-14-2023 Pharmacy Creatinine Clearance (Chem 49.[address] [facility] Platelet poor plasma interna tional normalized ratio (INR) by coagulation assay (relatOrdered By: Yakov To on 02-14-2023 INR Coag (PPP) [Relative time] 2.2 {INR} [facility] Comment on above: INR Therapeutic Rang [...] 02-14-2023 Potassium [Moles/Vol] 3.7 mmol/L Normal 3.5-5.1 [facility] Comment on above: Result Comment: PERF ORMED BY: [facility] [address] [place] [address] PATHOLOGIST RESCUE BOAT OPERATOR RAFA BYRNE M.D. Performed By: #### K #### [facility] [address] [place] [address] [facility] Potassium [Moles/Vol] 3.4 mmol/L Low 3.5-5.1 [facility] Comment on above: Result Comment: PERF ORMED BY: [facility] [address] [place] [address] PATHOLOGIST RESCUE BOAT OPERATOR RAFA BYRNE M.D. Performed By: #### K #### [facility] [address] [place] [id number] [facility] Potassium [Moles/volume] in Serum or PlasmaOrdered By: Yakov To on 02-14-2023 Potassium [Moles/Vol] 3.7 mmol/L 3.5-5.1 [facility] Prothrombin Time INRon 02-14 INR Coag (PPP) [Relative time] 2.2 {INR} Normal [facility] Comment on above: Result Comment: INR [...] heart valves: 3 - 4.5 PERFORMED BY: [place] [address] PATHOLOGIST RESCUE BOAT OPERATOR RAFA BYRNE M.D. Performed By: #### M G #### [facility] [address] [place] [address] PT Coag (PPP) [Time] 25.6 s High 9.0-12.9 [facility] Comment on above: Performed By: #### M G #### [facility] [address] [place] [address] Serum or plasma anion gap de terminationOrdered By: Yakov To on 02-14-2023 Anion gap [Moles/Vol] 13.4 mmol/L 6.0-15.0 [facility] Sodium [Moles/volume] in Ser um or PlasmaOrdered By: Yakov To on 02-14-2023 Sodium [Moles/Vol] 136 mmol/L 136-145 [facility] Comment on above: Delta: 129 on -9 Urea nitrogen [Mass/volume] in Serum or PlasmaOrdered By: Yakov To on 02-14-2023 Urea nitrogen [Mass/Vol] 43 mg/dL 7-[address] [facility] Activated partial thrombopla stin time (aPTT) in platelet poor plasma by coagulation aOrdered By: Angela Aden on 02-13-2023 aPTT Coag (PPP) [Time] 38.3 s 25.1-36.[address] [facility] Alanine aminotransferase [En zymatic activity/volume] in Serum or PlasmaOrdered By: Angela Aden on 02-13-2023 ALT [Catalytic activity/Vol] 21 U/L 7-[address] [facility] Albumin [Mass/volume] in Ser um or Plasma by Bromocresol green (BCG) dye binding methoOrdered By: Angela Aden on 02-13-2023 Albumin BCG dye [Mass/Vol] 4.3 g/dL 3.5-5.[address] [facility] Alkaline phosphatase [Enzyma tic activity/volume] in Serum or PlasmaOrdered By: Agnela Aden on 02-13-2023 ALP [Catalytic activity/Vol] 98 U/L 34-[address] [facility] Arterial Blood Gason 023 ABG Base Excess 5.2 mmol/L High -3.0-3.[address] [facility] Comment on above: Performed By: #### M G #### [facility] [address] [place] [address] ABG Frac Inspired O2 21 % Normal [facility] Comment on above: Performed By: #### M G #### [facility] [address] [place] [address] ABG Oxygen Content 9.0 mmol/L Normal 6.6-9.7 [facility] Comment on above: Performed By: #### M G #### [facility] [address] [place] [address] ABG Oxygen Saturation 83.4 % Low 95.0-100.0 [facility] Comment on above: Performed By: #### M G #### [facility] [address] ABG PCO2 49.4 mm[Hg] High 35.0-45.[address] [facility] Comment on above: Performed By: #### M G #### [facility] [address] [place] [address] ABG PH 7.42 Normal 7.35-7.[address] [facility] Comment on above: Performed By: #### M G #### [facility] [address] [place] [address] ABG PO2 48.2 mm[Hg] Off scale low 80.0-100.[address] [facility] Comment on above: Performed By: #### M G #### [facility] [address] [place] [address] CO2 [Moles/Vol] 32.7 mmol/L High 23.0-27.0 [facility] Comment on above: Performed By: #### M G #### [facility] [address] [place] [address] HCO3 (Bld) [Moles/Vol] 31.2 mmol/L High 23.0-29.[address] [facility] Comment on above: Performed By: #### M G #### [address] Respiratory Critical Normal [facility] Comment on above: Result Comment: Crit ical Value called on: 02/13/2023 at 17:04 PERFORMED BY: [place] [address] PATHOLOGIST RESCUE BOAT OPERATOR RAFA BYRNE M.D. Performed By: #### M G #### [address] VBG Draw Site Venous Normal [facility] Comment on above: Performed By: #### M G #### [address] Aspartate aminotransferase [ Enzymatic activity/volume] in Serum or PlasmaOrdered By: Angela Aden on 02-13-2023 AST [Catalytic activity/Vol] 32 U/L 13-[address] [facility] Basophils Auto (Bld) [#/Vol] Ordered By: Angela Aden on 02-13-2023 Basophils (Bld) [#/Vol] 0.1 10*3/uL 0.0-0.[address] [facility] Basophils/100 WBC Auto (Bld) Ordered By: Angela Aden on 02-13-2023 Basophils/100 WBC (Bld) 0.6 % . [facility] Beta Hydroxybuterateon 02-13 Beta Hydroxybuterate 0.10 mmol/L Normal 0.02-0.27 [facility] Comment on above: Result Comment: PERF ORMED BY: [place] [address] PATHOLOGIST RESCUE BOAT OPERATOR RAFA BYRNE M.D. Performed By: #### M G #### [address] Beta hydroxybutyrate [Moles/ volume] in Serum or PlasmaOrdered By: Angela Aden on 02-13-2023 Beta hydroxybutyrate [Moles/Vol] 0.10 mmol/L 0.02-0.[address] [facility] Bilirubin Test strip Ql (U)O rdered By: Angela Aden on 02-13-2023 Bilirubin Ql (U) Negative Negative [facility] Bilirubin.total [Mass/volume ] in Serum or PlasmaOrdered By: Angela Aden on 02-13-2023 Bilirubin [Mass/Vol] 1.3 mg/dL 0.3-1.0 [facility] Comment on above: Samples from patient s who have taken Naproxen have shown spurious elevation in Total Bilirubin levels. A metabolite of Naproxen, O-desmethylnaproxen, has been shown to interfere with the Jesi-Ananya method for measuring Total Bilirubin. CT head/brain wo conon 02-13 CT head/brain wo con [facility] Main [place] [id number] CT Scan Report Signed Patient: Adwoa Porter MR#: [id number] 7 : 1955 Acct:[id number] Age/Sex: 67 / M ADM Date: 02/13/23 Loc: ER Room: Type: [facility] ER Attending Dr: Copies to: Angela [...] Archana Perez M.D.02/13/2023 5:28 PM Dictation Location: [place] [address] Transcribed By: [facility] 02/13/231727 Dictated By: Archana Perez MD 02/13/231722 Signed By: 02/13/231727 Normal [facility] Calcium [Mass/volume] in Ser um or PlasmaOrdered By: Angela Aden on 02-13-2023 Calcium [Mass/Vol] 9.3 mg/dL 8.6-10.3 [facility] Carbon dioxide, total [Moles /volume] in Serum or PlasmaOrdered By: Angela Aden on 02-13-2023 CO2 [Moles/Vol] 31.6 mmol/L 21.0-31.0 [facility] Chloride [Moles/volume] in S mary or PlasmaOrdered By: Angela Aden on 02-13-2023 Chloride [Moles/Vol] 85 mmol/L 98-107 [facility] Color Auto (U)Ordered By: Miguel Aden on 02-13-2023 Color (U) Yellow Yellow [facility] Complete Blood Count Auto Di ffon 02-13-2023 Basophils (Bld) [#/Vol] 0.1 10*3/uL Normal 0.0-0.[address] [facility] Comment on above: Result Comment: PERF ORMED BY: [place] [address] PATHOLOGIST RESCUE BOAT OPERATOR RAFA BYRNE M.D. Performed By: #### M G #### [address] Basophils/100 WBC (Bld) 0.6 % Normal . [facility] Comment on above: Performed By: #### M G #### [address] Eosinophils (Bld) [#/Vol] 0.4 10*3/uL Normal 0.0-0.[address] [facility] Comment on above: Performed By: #### M G #### [address] Eosinophils/100 WBC (Bld) 2.9 % Normal . [facility] Comment on above: Performed By: #### M G #### [address] Erythrocyte distribution width (RBC) [Ratio] 17.9 % High 12.0-14.[address] [facility] Comment on above: Performed By: #### M G #### [address] Hematocrit (Bld) [Volume fraction] 48.8 % Normal 38.8-50.[address] [facility] Comment on above: Performed By: #### M G #### [address] Hemoglobin (Bld) [Mass/Vol] 16.6 g/dL Normal 13.0-17.[address] [facility] Comment on above: Performed By: #### M G #### [address] Lymphocytes (Bld) [#/Vol] 2.1 10*3/uL Normal 1.00-4.[address] [facility] Comment on above: Performed By: #### M G #### [address] [place] [address] [place] Lymphocytes/100 WBC (Bld) 17.7 % Normal . [facility] Comment on above: Performed By: #### M G #### [address] MCH (RBC) [Entitic mass] 29.0 pg Normal 27.5-35.[address] [facility] Comment on above: Performed By: #### M G #### [address] MCV (RBC) [Entitic vol] 85.2 fL Normal 83.5-[address] [facility] Comment on above: Performed By: #### M G #### [address] Mean Corpuscular HGB Conc 34.0 g/dL Normal 32.5-35.[address] [facility] Comment on above: Performed By: #### M G #### [address] Monocytes (Bld) [#/Vol] 1.0 10*3/uL High 0.0-0.[address] [facility] Comment on above: Performed By: #### M G #### [address] Monocytes/100 WBC (Bld) 19.79 % Normal 0.00-20.[address] [facility] Comment on above: Performed By: #### M G #### [address] Monocytes/100 WBC (Bld) 8.0 % Normal . [facility] Comment on above: Performed By: #### M G #### [place] [address] [place] Neutrophils (Bld) [#/Vol] 8.5 10*3/uL High 1.8-7.[address] [facility] Comment on above: Performed By: #### M G #### [address] Neutrophils/100 WBC (Bld) 70.8 % Normal . [facility] Comment on above: Performed By: #### M G #### [facility] [address] NRBC% 0.1 /100{WBC} Normal 0-0.[address] [facility] Comment on above: Performed By: #### M G #### [facility] [address] Platelet mean volume (Bld) [Entitic vol] 8.6 fL Normal 6.6-10.[address] [facility] Comment on above: Performed By: #### M G #### [facility] [address] Platelets (Bld) [#/Vol] 218 10*3/uL Normal 150-[address] [facility] Comment on above: Performed By: #### M G #### [address] RBC (Bld) [#/Vol] 5.72 10*6/uL High 3.90-5.60 [facility] Comment on above: Performed By: #### M G #### [address] WBC (Bld) [#/Vol] 12.0 10*3/uL High 4.1-10.5 [facility] Comment on above: Performed By: #### M G #### [address] Comprehensive Metabolic Pane david 02-13-2023 Albumin [Mass/Vol] 4.3 g/dL Normal 3.5-5.7 [facility] Comment on above: Performed By: #### M G #### [address] Albumin/Globulin [Mass ratio] 1.2 {ratio} Normal [facility] Comment on above: Performed By: #### M G #### [address] ALP [Catalytic activity/Vol] 98 U/L Normal 34-[address] [facility] Comment on above: Performed By: #### M G #### [place] [id number] [facility] ALT [Catalytic activity/Vol] 21 U/L Normal 7-[address] [facility] Comment on above: Performed By: #### M G #### [address] Anion gap [Moles/Vol] 15.3 mmol/L High 6.0-15.0 [facility] Comment on above: Performed By: #### M G #### [address] AST [Catalytic activity/Vol] 32 U/L Normal 13-[address] [facility] Comment on above: Performed By: #### M G #### [address] Bilirubin [Mass/Vol] 1.3 mg/dL High 0.3-1.0 [facility] Comment on above: Result Comment: Samp les from patients who have taken Naproxen have shown spurious elevation in Total Bilirubin levels. A metabolite of Naproxen, O-desmethylnaproxen, has been shown to interfere with the Jendrassik-Grof method for measuring Total Bilirubin. Performed By: #### M G #### [place] [id number] [facility] Calcium [Mass/Vol] 9.3 mg/dL Normal 8.6-10.3 [facility] Comment on above: Performed By: #### M G #### [facility] [address] [place], [place] [id number] [place] Chloride [Moles/Vol] 85 mmol/L Low 98-107 [facility] Comment on above: Performed By: #### M G #### [facility] [address] [place], [place] [id number] [place] CO2 [Moles/Vol] 31.6 mmol/L High 21.0-31.0 [facility] Comment on above: Performed By: #### M G #### [address] Creatinine [Mass/Vol] 2.06 mg/dL High 0.70-1.30 [facility] Comment on above: Performed By: #### M G #### [facility] [address] [place] [address] [place] Creatinine Clr Calc Pharmacy 39.[address] [facility] Comment on above: Performed By: #### M G #### [facility] [address] [place] [address] [place] GFR/1.73 sq M.predicted MDRD (S/P/Bld) [Vol rate/Area] 34.441 mL/min/{1.73_m2} [facility] Comment on above: Performed By: #### M G #### [address] Globulin (S) [Mass/Vol] 3.6 g/dL [facility] Comment on above: Performed By: #### M G #### [address] Glucose [Mass/Vol] 400 mg/dL High 70-100 [facility] Comment on above: Result Comment: [facility] Glucose Reference Range is dependent on time and content of last meal. Glucose of more than 200 mg/dL in a nonstressed, ambulatory subject supports the diagnosis of Diabetes Mellitus. ADA recommended reference range Performed By: #### M G #### [address] Potassium [Moles/Vol] 2.9 mmol/L Off scale low 3.5-5.[address] [facility] Comment on above: Result Comment: Hemo lysis is present at a level that could interfere with the result. Performed By: #### M G #### [place] [address] [place] Protein [Mass/Vol] 7.9 g/dL Normal 6.4-8.9 [facility] Comment on above: Performed By: #### M G #### [place] [address] [place] Sodium [Moles/Vol] 129 mmol/L Low 136-145 [facility] Comment on above: Performed By: #### M G #### [facility] [address] [place] [address] [place] Urea nitrogen [Mass/Vol] 53 mg/dL High 06-[address] [facility] Comment on above: Performed By: #### M G #### [facility] [address] Creatinine [Mass/volume] in Serum or PlasmaOrdered By: Angela Aden on 02-13-2023 Creatinine [Mass/Vol] 2.06 mg/dL 0.70-1.30 [facility] ECG 12 lead ECGon 02-13-2023 ECG 12 lead ECG [facility] Main [place] [address] [place] [address] Electrocardiograph Report Signed Patient: Adwoa Proter MR#: [id number] 7 : 1955 Acct:[id number] Age/Sex: 67 / M ADM Date: 02/13/23 Loc: Room: [address] [place] [address] Type: ADM IN Attending Dr: Yakov To [...] Bifascicular block Confirmed by Alejandro DUNCAN DO ([id number]) on 02/13/2023 10:10:19 PM Referred By: Electronically Signed By:Alejandro DUNCAN DO Transcribed By: MUS Signed By Alejandro Duncan DO 0 02/13/[address] [facility] Eosinophils Auto (Bld) [#/Vo l]Ordered By: Angela Aden on 02-13-2023 Eosinophils (Bld) [#/Vol] 0.4 10*3/uL 0.0-0.[address] [facility] Eosinophils/100 WBC Auto (Bl d)Ordered By: Angela Aden on 02-13-2023 Eosinophils/100 WBC (Bld) 2.9 % . [facility] Erythrocyte distribution wid th Auto (RBC) [Ratio]Ordered By: Angela Aden on 02-13-2023 Erythrocyte distribution width (RBC) [Ratio] 17.9 % 12.0-14.[address] [facility] Globulin Calc (S) [Mass/Vol] Ordered By: Angela Aden on 02-13-2023 Globulin (S) [Mass/Vol] 3.6 g/dL [facility] Glucose Glucometer (BldC) [M ass/Vol]Ordered By: Yakov To on 02-13-2023 Glucose [Mass/Vol] 216 mg/dL [facility] Comment on above: Random Glucose Refer ence Range is dependent on time and content of last meal. Glucose of more than 200 mg/dL in a nonstressed, ambulatory subject supports the diagnosis of Diabetes Mellitus. Glucose Poct Glucometerson 0 02-13-2023 Glucose [Mass/Vol] 76 mg/dL Normal [facility] Comment on above: Result Comment: [place] om Glucose Reference Range is dependent on time and content of last meal. Glucose of more than 200 mg/dL in a nonstressed, ambulatory subject supports the diagnosis of Diabetes Mellitus. PERFORMED BY: [address] [place] [address] PATHOLOGIST RESCUE BOAT OPERATOR RAFA BYRNE M.D. Performed By: #### G LULS #### Point of Care testing , Commemt1 Normal [facility] Comment on above: Result Comment: Glu2 : WILL NOTIFY DR/RN PERFORMED BY: [facility] [address] [place] [id number] PATHOLOGIST RESCUE BOAT OPERATOR RAFA BYRNE M.D. Performed By: #### G LULS #### Point of Care testing , Glucose [Mass/Vol] 560 mg/dL Off scale high [facility] Comment on above: Result Comment: [place] om Glucose Reference Range is dependent on time and content of last meal. Glucose of more than 200 mg/dL in a nonstressed, ambulatory subject supports the diagnosis of Diabetes Mellitus. Performed By: #### G LUCAROL #### Point of Care testing , Glucose [Mass/volume] in Ser um or PlasmaOrdered By: Angela Aden on 02-13-2023 Glucose [Mass/Vol] 400 mg/dL 70-100 [facility] Comment on above: ADA recommended refe rence rangeRandom Glucose Reference Range is dependent on time and content of last meal. Glucose of more than 200 mg/dL in a nonstressed, ambulatory subject supports the diagnosis of Diabetes Mellitus. Hematocrit Auto (Bld) [Volum e fraction]Ordered By: Angela Aden on 02-13-2023 Hematocrit (Bld) [Volume fraction] 48.8 % 38.8-50.[address] [facility] Hemoglobin [Mass/volume] in BloodOrdered By: Angela Aden on 02-13-2023 Hemoglobin (Bld) [Mass/Vol] 16.6 g/dL 13.0-17.[address] [facility] Ketones Auto test strip (U) [Mass/Vol]Ordered By: Angela Aden on 02-13-2023 Ketones (U) [Mass/Vol] Negative Negative [facility] Laboratory - Chemistry and C hemistry - challengeOrdered By: Angela Aden on 02-13-2023 CO2 [Moles/Vol] 32.7 mmol/L 23.0-27.0 [facility] HCO3 (Bld) [Moles/Vol] 31.2 mmol/L 23.0-29.[address] [facility] GFR/1.73 sq M.predicted MDRD (S/P/Bld) [Vol rate/Area] 34.441 mL/min/{1.73_m2} [facility] Laboratory - CoagulationOrde red By: Angela Aden on 02-13-2023 PT Coag (PPP) [Time] 26.1 s 9.0-12.9 [facility] Leukocytes [#/volume] correc morris for nucleated erythrocytes in Blood by Automated counOrdered By: Angela Aden on 02-13-2023 WBC corrected for nucl RBC Auto (Bld) [#/Vol] 12.0 10*3/uL 4.1-10.[address] [facility] Lymphocytes Auto (Bld) [#/Vo l]Ordered By: Angela Aden on 02-13-2023 Lymphocytes (Bld) [#/Vol] 2.1 10*3/uL 1.00-4.[address] [facility] Lymphocytes/100 WBC Auto (Bl d)Ordered By: Angela Aden on 02-13-2023 Lymphocytes/100 WBC (Bld) 17.7 % . [facility] MCH Auto (RBC) [Entitic mass ]Ordered By: Angela Aden on 02-13-2023 MCH (RBC) [Entitic mass] 29.0 pg 27.5-35.[address] [facility] MCHC Auto (RBC) [Mass/Vol]Or dered By: Angela Aden on 02-13-2023 MCHC (RBC) [Mass/Vol] 34.0 g/dL 32.5-35.6 [facility] MCV Auto (RBC) [Entitic vol] Ordered By: Angela Aden on 02-13-2023 MCV (RBC) [Entitic vol] 85.2 fL 83.5-[address] [facility] Magnesiumon 02-13-2023 Magnesium [Mass/Vol] 2.5 mg/dL Normal 1.9-2.7 [facility] Comment on above: Order Comment: Comme nt add on if possible Result Comment: PERF ORMED BY: [place] [address] PATHOLOGIST RESCUE BOAT OPERATOR RAFA BYRNE M.D. Performed By: #### M G #### [address] Magnesium [Mass/volume] in S mary or PlasmaOrdered By: Yakov To on 02-13-2023 Magnesium [Mass/Vol] 2.5 mg/dL 1.9-2.7 [facility] Monocyte distribution width [Entitic volume] in Blood by AutomatedOrdered By: Angela Aden on 02-13-2023 Monocyte distribution width Auto (Bld) [Entitic vol] 19.79 % 0.00-20.[address] [facility] Monocytes Auto (Bld) [#/Vol] Ordered By: Angela Aden on 02-13-2023 Monocytes (Bld) [#/Vol] 1.0 10*3/uL 0.0-0.[address] [facility] Monocytes/100 WBC Auto (Bld) Ordered By: Angela Aden on 02-13-2023 Monocytes/100 WBC (Bld) 8.0 % . [facility] Neutrophils Auto (Bld) [#/Vo l]Ordered By: Angela Aden on 02-13-2023 Neutrophils (Bld) [#/Vol] 8.5 10*3/uL 1.8-7.[address] [facility] Neutrophils/100 WBC Auto (Bl d)Ordered By: Angela Aden on 02-13-2023 Neutrophils/100 WBC (Bld) 70.8 % . [facility] Nitrite Test strip Ql (U)Ord ered By: Angela Aden on 02-13-2023 Nitrite Ql (U) Negative Negative [facility] No Panel InformationOrdered By: Angela Aden on 02-13-2023 Arterial Blood Base Excess 5.2 mmol/L -3.0-3.[address] [facility] Arterial Blood Oxygen Content 9.0 mmol/L 6.6-9.[address] [facility] Arterial Blood Oxygen Saturation 83.4 % 95.0-100.[address] [facility] Arterial Blood Partial Pressure CO2 49.4 mm[Hg] 35.0-45.[address] [facility] Arterial Blood Partial Pressure O2 48.2 mm[Hg] 80.0-100.[address] [facility] Arterial Blood pH 7.42 7.35-7.45 [facility] Blood Gas Critical Value See comment [facility] Comment on above: Critical Value rdz d on: 02/13/2023 at 17:04 Blood Gas Sample Site Venous [facility] FiO2 21 % [facility]acy Creatinine Clearance (Chem 39.[address] [facility] Bedside Glucose Comment See comment [facility] Comment on above: Glu2: WILL NOTIFY DR /RN Nucleated erythrocytes [Pres ence] in Blood by Automated countOrdered By: Angela Aden on 02-13-2023 Nucleated RBC Auto Ql (Bld) 0.1 /100{WBC} 0-0.[address] [facility] Partial Thromboplastin Timeo n 02-13-2023 aPTT Coag (Bld) [Time] 38.3 s High 25.1-36.[address] [facility] Comment on above: Result Comment: PERF ORMED BY: [place] [address] PATHOLOGIST RESCUE BOAT OPERATOR RAFA BYRNE M.D. Performed By: #### M G #### [address] Platelet mean volume Auto (B ld) [Entitic vol]Ordered By: Angela Aden on 02-13-2023 Platelet mean volume (Bld) [Entitic vol] 8.6 fL 6.6-10.[address] [facility] Platelet poor plasma interna tional normalized ratio (INR) by coagulation assay (relatOrdered By: Angela Aden on 02-13-2023 INR Coag (PPP) [Relative time] 2.3 {INR} [facility] Comment on above: INR Therapeutic Rang [...] 02-13-2023 Platelets (Bld) [#/Vol] 218 10*3/uL 150-[address] [facility] Potassium [Moles/volume] in Serum or PlasmaOrdered By: Angela Aden on 02-13-2023 Potassium [Moles/Vol] 2.9 mmol/L 3.5-5.1 [facility] Comment on above: Hemolysis is present at a level that could interfere with the result. Protein Auto test strip (U) [Mass/Vol]Ordered By: Angela Aden on 02-13-2023 Protein (U) [Mass/Vol] Negative Negative [facility] Protein [Mass/volume] in Ser um or PlasmaOrdered By: Angela Aden on 02-13-2023 Protein [Mass/Vol] 7.9 g/dL 6.4-8.9 [facility] Prothrombin Time INRon 02-13 INR Coag (PPP) [Relative time] 2.3 {INR} Normal [facility] Comment on above: Result Comment: INR [...] 4.5 Performed By: #### M G #### [facility] [address] PT Coag (PPP) [Time] 26.1 s High 9.0-12.9 [facility] Comment on above: Performed By: #### M G #### [facility] [address] RBC Auto (Bld) [#/Vol]Ordere d By: Angela Aden on 02-13-2023 RBC (Bld) [#/Vol] 5.72 10*6/uL 3.90-5.60 [facility] Serum or plasma albumin/glob ulin mass ratioOrdered By: Angela Aden on 02-13-2023 Albumin/Globulin [Mass ratio] 1.2 {ratio} [facility] Serum or plasma anion gap de terminationOrdered By: Angela Aden on 02-13-2023 Anion gap [Moles/Vol] 15.3 mmol/L 6.0-15.0 [facility] Sodium [Moles/volume] in Ser um or PlasmaOrdered By: Angela Aden on 02-13-2023 Sodium [Moles/Vol] 129 mmol/L 136-145 [facility] Specific gravity Auto test s trip (U) [Rel density]Ordered By: Agnela Aden on 02-13-2023 Specific gravity (U) [Rel density] 1.018 1.001-1.[address] [facility] Troponin I High Sensitivityo n 02-13-2023 Troponin I High Sensitivity 69.4 pg/mL Off scale high 0.0-20.[address] [facility] Comment on above: Result Comment: Crit ical Result : Called to and read back by: PROMISE VIEIRA at: 02/13/2023 18:35:16 by:[id number] PERFORMED BY: [place] [address] PATHOLOGIST RESCUE BOAT OPERATOR RAFA BYRNE M.D. Performed By: #### M G #### [facility] [address] [place] [address] Troponin I.cardiac [Mass/vol ume] in Serum or Plasma by Detection limit <= 0.01 ng/Ordered By: Angela Aden on 02-13-2023 Troponin I.cardiac DL <= 0.01 ng/mL [Mass/Vol] 69.4 pg/mL 0.0-20.[address] [facility] Comment on above: Critical Result : Ca lled to and read back by: PROMISE VIEIRA at: 02/13/2023 18:35:16 by:[id number] Urea nitrogen [Mass/volume] in Serum or PlasmaOrdered By: Angela Aden on 02-13-2023 Urea nitrogen [Mass/Vol] 53 mg/dL [address] [facility] Urinalysison 02-13-2023 Appearance (U) Clear Normal Clear [facility] Comment on above: Order Comment: Name Collection Type:: Clean-Voided Midstream Performed By: #### U A #### [facility] [address] [place] [address] [place] Bilirubin,Urine Negative Normal Negative [facility] Comment on above: Order Comment: Name Collection Type:: Clean-Voided Midstream Performed By: #### U A #### [facility] [address] [place] [address] [place] Color (U) Yellow Normal Yellow [facility] Comment on above: Order Comment: Name Collection Type:: Clean-Voided Midstream Performed By: #### U A #### [facility] [address] [place] [address] [place] Glucose Ql (U) >=1000 High Normal [facility] Comment on above: Order Comment: Name Collection Type:: Clean-Voided Midstream Performed By: #### U A #### [facility] [address] Ketones Ql (U) Negative Normal Negative [facility] Comment on above: Order Comment: Name Collection Type:: Clean-Voided Midstream Performed By: #### U A #### [address] Leukocyte esterase Test strip Ql (U) Negative Normal Negative [facility] Comment on above: Order Comment: Name Collection Type:: Clean-Voided Midstream Performed By: #### U A #### [facility] [address] [place] [address] [place] Nitrite,Urine Negative Normal Negative [facility] Comment on above: Order Comment: Name Collection Type:: Clean-Voided Midstream Performed By: #### U A #### [place] [address] [place] Occult Blood,Urine Negative Normal Negative [facility] Comment on above: Order Comment: Name Collection Type:: Clean-Voided Midstream Result Comment: PERF ORMED BY: [place] [address] PATHOLOGIST RESCUE BOAT OPERATOR RAFA BYRNE M.D. Performed By: #### U A #### [facility] [address] [place] [address] [place] pH (U) 6.0 [pH] Normal 5.0-9.[address] [facility] Comment on above: Order Comment: Name Collection Type:: Clean-Voided Midstream Performed By: #### U A #### [facility] [address] [place] [address] [place] Protein,Urine Negative Normal Negative [facility] Comment on above: Order Comment: Name Collection Type:: Clean-Voided Midstream Performed By: #### U A #### [facility] [address] Specificy [place],Urine 1.018 Normal 1.001-1.[address] [facility] Comment on above: Order Comment: Name Collection Type:: Clean-Voided Midstream Performed By: #### U A #### [facility] [address] [place] [address] [place] Urobilinogen,Urine Normal Normal Normal [facility] Comment on above: Order Comment: Name Collection Type:: Clean-Voided Midstream Performed By: #### U A #### [facility] [address] Urine clarity by refractomet ry automatedOrdered By: Angela Aden on 02-13-2023 Clarity Refractometry automated (U) Clear Clear [facility] Urine glucose measurement by automated test strip (mass/volume)Ordered By: Angela Aden on 02-13-2023 Glucose Auto test strip (U) [Mass/Vol] >=1000 mg/dL Normal [facility] Urine hemoglobin detection b y automated test stripOrdered By: Angela Aden on 02-13-2023 Hemoglobin Auto test strip Ql (U) Negative Negative [facility] Urine leukocyte esterase det ection by automated test stripOrdered By: Angela Aden on 02-13-2023 Leukocyte esterase Auto test strip Ql (U) Negative Negative [facility] Urobilinogen Auto test strip (U) [Mass/Vol]Ordered By: Angela Aden on 02-13-2023 Urobilinogen (U) [Mass/Vol] Normal mg/dL Normal [facility] WBC Auto (Bld) [#/Vol]Ordere d By: Angela Aden on 02-13-2023 WBC (Bld) [#/Vol] 12.0 10*3/uL 4.1-10.5 [facility] XR chest 2V*on 02-13-2023 XR chest 2V* [facility] [address] [place] [address] [place] [address] XRay Report Signed Patient: Adwoa Porter MR#: [id number] 7 : 1955 Acct:[id number] Age/Sex: 67 / M ADM Date: 02/13/23 Loc: ER Room: Type: [facility] ER Attending Dr: Copies to: Angela [...] Archana Perez M.D.02/13/2023 5:39 PM Dictation Location: [place] [address] Transcribed By: [facility] 02/13/231738 Dictated By: Archana Perez MD 02/13/231734 Signed By: 02/13/231738 Normal [facility] pH Auto test strip (U)Ordere d By: Angela Aden on 02-13-2023 pH (U) 6.0 [pH] 5.0-9.[address] [facility] BNPon 01-29-2023 Natriuretic peptide B (Bld) [Mass/Vol] 6099.0 pg/mL Critically high <=900.0 [facility] Comment on above: Performed By: #### C MP, BNP ####[facility] [address] [place] [address]DrWesley Navarro CBC AUTO DIFFon 01-29-2023 BASO # 0.1 103/ul Normal 0.0-0.1 [facility] Comment on above: Performed By: #### C BC ####[facility] [address] [place] [address]DrWesley Navarro Basophils/100 WBC (Bld) 0.3 % Normal 0.2-2.0 [facility] Comment on above: Performed By: #### C BC ####[facility] [address] [place], [place] [address]DrWesley Navarro EO # 0.3 103/ul Normal 0.0-0.7 [facility] Comment on above: Performed By: #### C BC ####[facility] [address] [place], [place] [address]Dr. Emelina Navarro Eosinophils/100 WBC (Bld) 1.9 % Normal 0.9-7.0 [facility] Comment on above: Performed By: #### C BC ####[facility] R[address] [place], [place] [address]Dr. Emelina Navarro Erythrocyte distribution width (RBC) [Ratio] 18.5 % Critically high 11.0-15.0 [facility] Comment on above: Performed By: #### C BC ####[facility] [address] [place], [place] [address]Dr. Emelina Navarro Hematocrit (Bld) [Volume fraction] 49.7 % Normal 42.0-54.0 [facility] Comment on above: Performed By: #### C BC ####[facility] [address] [place], [place] [address]Dr. Emelina Navarro Hemoglobin (Bld) [Mass/Vol] 16.3 g/dL Normal 14.0-18.0 [facility] Comment on above: Performed By: #### C BC ####[facility] [address] [place], [place] [address]DrWesley Navarro IG # 0.07 10e3/ul Critically high 0.00-0.[address] [facility] Comment on above: Performed By: #### C BC ####[facility] [address] [place], [place] [address]Dr. Emelina Navarro IG % 0.4 % Normal 0.0-0.5 [facility] Comment on above: Performed By: #### C BC ####[facility] [address] [place], [place] [address]Dr. Emelina Navarro LYMPH # 2.6 103/ul Normal 1.2-3.8 [facility] Comment on above: Performed By: #### C BC ####[facility] [address] [place] [address]DrWesley Navarro Lymphocytes/100 WBC (Bld) 16.9 % Critically low 20.5-60.0 [facility] Comment on above: Performed By: #### C BC ####[facility] [address] [place], [place] [address]DrWesley Navarro MANUAL DIFF REQ NO Normal [facility] Comment on above: Performed By: #### C BC ####[facility] Cat[address] [place], [place] [address]DrWesley Navarro MCH (RBC) [Entitic mass] 28.4 pg Normal 25.9-34.0 [facility] Comment on above: Performed By: #### C BC ####[facility] [address] [place], [place] [address]DrWesley Navarro MCHC (RBC) [Mass/Vol] 32.8 g/dL Normal 29.9-35.2 [facility] Comment on above: Performed By: #### C BC ####[facility] [address] [place], [place] [address]DrWesley Navarro MCV (RBC) [Entitic vol] 86.6 fL Normal 80.0-94.0 [facility] Comment on above: Performed By: #### C BC ####[facility] [address] [place], [place] [address]DrWesley Navarro MONO # 1.2 103/ul Critically high 0.3-0.8 [facility] Comment on above: Performed By: #### C BC ####[facility] [address] [place], [place] [address]DrWesley Navarro Monocytes/100 WBC (Bld) 7.7 % Normal 1.7-12.0 [facility] Comment on above: Performed By: #### C BC ####[facility] [address] [place], [place] [address]DrWesley Navarro NEUT # 11.4 103/ul Critically high 1.4-6.5 [facility] Comment on above: Performed By: #### C BC ####[facility] [address] [place] [address]Dr. Emelina Navarro Neutrophils/100 WBC (Bld) 72.8 % Normal 43.0-75.0 [facility] Comment on above: Performed By: #### C BC ####[facility] [address]shi[address] [place] [address]DrWesley Emelina Navarro Platelet mean volume (Bld) [Entitic vol] 9.8 fL Normal 9.5-13.5 [facility] Comment on above: Performed By: #### C BC ####[facility] [address] [place] [address]DrWesley Emelina Navarro PLT 200 103/ul Normal 150-450 [facility] Comment on above: Performed By: #### C BC ####[facility] [address] [place] [address]DrWesley Emelina Ramon RBC 5.74 106/ul Normal 4.70-6.10 [facility] Comment on above: Performed By: #### C BC ####[facility] [address] [place] [address]DrWesley Emelina Navarro WBC 15.6 103/ul Critically high 4.0-11.0 [facility] Comment on above: Performed By: #### C BC ####[facility] [address] [place] [id number] Emelina Ramon DIGOXINon 01-29-2023 DIG 1.1 ng/mL Normal 0.9-2.0 [facility] Comment on above: Performed By: #### D IG ####[facility] [address] [place] [address] Emelina Ramon Office Visiton 01-29-2023 Follow-up visit [id number] Adwoa Porter 1955 M Date Provider Department Center 01/29/2023 SUSHIL CAO [facility] Family History Problem Relation Age of Onset Diabetes Mother Hypertension Mother Coronary artery disease Mother Family Status - Relation Status Age at Mother Level of Service:64829 PA OFFICE/OUTPATIENT ESTABLISHED MOD MDM 30-39 MIN Reason for Visit and Comments: Atrial Fibrillation [80] Coronary Artery Disease [187] Congestive Heart Failure [127] Normal [facility] PROF 14(COMP METB)on 023 Albumin [Mass/Vol] 3.8 g/dL Normal 3.4-5.0 [facility] Comment on above: Performed By: #### C MP, BNP ####[facility] [address] [place] [address]Dr. Emelina Navarro Albumin/Globulin [Mass ratio] 0.9 {ratio} Normal [facility] Comment on above: Performed By: #### C MP, BNP ####[facility] [address] [place] [address]Dr. Emelina Navarro ALP [Catalytic activity/Vol] 126 U/L Critically high 46-116 [facility] Comment on above: Performed By: #### C MP, BNP ####[facility] [address] [place] [address]Dr. Emelina Navarro ALT [Catalytic activity/Vol] 29 U/L Normal 16-63 [facility] Comment on above: Performed By: #### C MP, BNP ####[facility] [address] [place] [address]Dr. Emelina Navarro Anion gap [Moles/Vol] 12.2 mmol/L Normal [facility] Comment on above: Performed By: #### C MP, BNP ####[facility] [address] [place] [address]Dr. Emelina Navarro AST [Catalytic activity/Vol] 28 U/L Normal 15-37 [facility] Comment on above: Performed By: #### C MP, BNP ####[facility] [address]ren[address] [place] [address]Dr. Emelina Navarro Bilirubin [Mass/Vol] 1.8 mg/dL Critically high 0.2-1.0 [facility] Comment on above: Performed By: #### C MP, BNP ####[facility] R[address] [place], [place] [address]Dr. Emelina Navarro Calcium [Mass/Vol] 9.9 mg/dL Normal 8.5-10.1 [facility] Comment on above: Performed By: #### C MP, BNP ####[facility] [address] [place], [place] [address]Dr. Emelina Navarro Chloride [Moles/Vol] 96 mmol/L Critically low 98-107 [facility] Comment on above: Performed By: #### C MP, BNP ####[facility] [address] [place], [place] [address]Dr. Emelina Navarro CO2 [Moles/Vol] 33.6 mmol/L Critically high 21.0-32.0 [facility] Comment on above: Performed By: #### C MP, BNP ####[facility] Pr[address] [place], [place] [address]Dr. Emelina Navarro Creatinine [Mass/Vol] 1.66 mg/dL Critically high 0.70-1.30 [facility] Comment on above: Performed By: #### C MP, BNP ####[facility] [address] [place], [place] [address]Dr. Emelina Navarro EGFR-AF TOGOLESE 50 mL/min/1.73m2 Critically low >=60 [facility] Comment on above: Performed By: #### C MP, BNP ####[facility] Qc[address] [place], [place] [address]Dr. Emelina Navarro EGFR-NON AF TOGOLESE 41 mL/min/1.73m2 Critically low >=60 [facility] Comment on above: Performed By: #### C MP, BNP ####[facility] [address]fuim[address]udqe[address] [place], [place] [address]Dr. Emelina Navarro Globulin (S) [Mass/Vol] 4.3 g/dL Normal [facility] Comment on above: Performed By: #### C MP, BNP ####[facility] Y[address] [place], [place] [address]Dr. Emelina Navarro Glucose [Mass/Vol] 218 mg/dL Critically high 74-106 [facility] Comment on above: Performed By: #### C MP, BNP ####[facility] [address]ws[address] [place], [place] [address]Dr. Emelina Navarro Potassium [Moles/Vol] 4.8 mmol/L Normal 3.5-5.1 [facility] Comment on above: Performed By: #### C MP, BNP ####[facility] [address] [place], [place] [address]Dr. Emelina Navarro Protein [Mass/Vol] 8.1 g/dL Normal 6.4-8.[address] [facility] Comment on above: Performed By: #### C MP, BNP ####[facility] Qbsupthxmp[address] [place], [place] [address]Dr. Emelina Navarro Sodium [Moles/Vol] 137 mmol/L Normal 136-[address] [facility] Comment on above: Performed By: #### C MP, BNP ####[facility] [address] [place], [place] [address]Dr. Emelina Navarro Urea nitrogen [Mass/Vol] 31.0 mg/dL Critically high 7.0-18.0 [facility] Comment on above: Performed By: #### C MP, BNP ####[facility] Ul[address] [place], [place] [address]Dr. Emelina Navarro Urea nitrogen/Creatinine [Mass ratio] 18.7 mg/mg Normal [facility] Comment on above: Performed By: #### C MP, BNP ####[facility] [address] [place], [place] [address]Dr. Emelina Navarro BNPon 01-11-2023 Natriuretic peptide B (Bld) [Mass/Vol] 6024.0 pg/mL Critically high <=900.0 [facility] Comment on above: Performed By: #### B SERVICE RIG OPERATOR, CMP ####[facility] [address] [place], [place] [address]Dr. Emelina Navarro CBC AUTO DIFFon 01-11-2023 BASO # 0.0 103/ul Normal 0.0-0.1 [facility] Comment on above: Performed By: #### C BC ####[facility] Suz[address] [place], [place] [address]Dr. Emelina Navarro Basophils/100 WBC (Bld) 0.3 % Normal 0.2-2.0 [facility] Comment on above: Performed By: #### C BC ####[facility] [address] [place] [address]Dr. Emelina Navarro EO # 0.4 103/ul Normal 0.0-0.7 [facility] Comment on above: Performed By: #### C BC ####[facility] [address] [place] [address]Dr. Emelina Navarro Eosinophils/100 WBC (Bld) 3.3 % Normal 0.9-7.0 [facility] Comment on above: Performed By: #### C BC ####[facility] [address] [place], [place] [address]Dr. Emelina Navarro Erythrocyte distribution width (RBC) [Ratio] 16.7 % Critically high 11.0-15.0 [facility] Comment on above: Performed By: #### C BC ####[facility] [address] [place], [place] [address]Dr. Emelina Navarro Hematocrit (Bld) [Volume fraction] 41.5 % Critically low 42.0-54.0 [facility] Comment on above: Performed By: #### C BC ####[facility] [address] [place], [place] [address]Dr. Emelina Navarro Hemoglobin (Bld) [Mass/Vol] 13.8 g/dL Critically low 14.0-18.0 [facility] Comment on above: Performed By: #### C BC ####[facility] [address] [place], [place] [address]Dr. Emelina Navarro IG # 0.04 10e3/ul Critically high 0.00-0.[address] [facility] Comment on above: Performed By: #### C BC ####[facility] [address] [place] [address]Dr. Emelina Navarro IG % 0.3 % Normal 0.0-0.5 [facility] Comment on above: Performed By: #### C BC ####[facility] Gzfsybpxmy3808 [place] [id number]. Emelina Ramon LYMPH # 1.8 103/ul Normal 1.2-3.8 [facility] Comment on above: Performed By: #### C BC ####[facility] Snctkyzpmj9057 [place] [address]Dr. Awildanitza Navarro Lymphocytes/100 WBC (Bld) 15.1 % Critically low 20.5-60.0 [facility] Comment on above: Performed By: #### C BC ####[facility] Khwcqxldct3630 [place] [address]Dr. Emelina Navarro MANUAL DIFF REQ NO Normal [facility] Comment on above: Performed By: #### C BC ####[facility] Jvblzxheeh6436 [place] [address]Dr. Emelina Ramon MCH (RBC) [Entitic mass] 29.0 pg Normal 25.9-34.0 [facility] Comment on above: Performed By: #### C BC ####[facility] Mvlixwakmx7[address] [place], [place] [address]Dr. Emelina Ramon MCHC (RBC) [Mass/Vol] 33.3 g/dL Normal 29.9-35.2 [facility] Comment on above: Performed By: #### C BC ####[facility] Vctctmuocs8763 [place] [address]Dr. Emelina Navarro MCV (RBC) [Entitic vol] 87.2 fL Normal 80.0-94.0 [facility] Comment on above: Performed By: #### C BC ####[facility] Ldwhdsojoi0979 [place] [address]Dr. Emelina Navarro MONO # 0.7 103/ul Normal 0.3-0.8 [facility] Comment on above: Performed By: #### C BC ####[facility] Jhqfeuvdji[address] [place], [place] [address]Dr. Emelina Navarro Monocytes/100 WBC (Bld) 5.9 % Normal 1.7-12.0 [facility] Comment on above: Performed By: #### C BC ####[facility] Uesvbrzlmw6160 [place] [phone]. Emelina Navarro NEUT # 8.9 103/ul Critically high 1.4-6.5 [facility] Comment on above: Performed By: #### C BC ####[facility] Tkenhgmmtp4575 [place] [phone]. Emelina Navarro Neutrophils/100 WBC (Bld) 75.1 % Critically high 43.0-75.0 [facility] Comment on above: Performed By: #### C BC ####[facility] Emvcmtoemx8472 [place] [address]Dr. Emelina Navarro Platelet mean volume (Bld) [Entitic vol] 11.7 fL Normal 9.5-13.5 [facility] Comment on above: Performed By: #### C BC ####[facility] Yfzginykwd2326 [place] [address]Dr. Emelina Navarro PLT 124 103/ul Critically low 150-450 [facility] Comment on above: Performed By: #### C BC ####[facility] Zdviualmib7787 [place] [address]Dr. Emelina Navarro RBC 4.76 106/ul Normal 4.70-6.10 [facility] Comment on above: Performed By: #### C BC ####[facility] Xihlkkhoib9072 [place] [address]Dr. Emelina Navarro WBC 11.8 103/ul Critically high 4.0-11.0 [facility] Comment on above: Performed By: #### C BC ####[facility] Oszziyieba0689 [place] [address]Dr. Emelina Navarro POINT OF CARE GLUCOSEon 12-21 Glucose [Mass/Vol] 339 mg/dL Critically high 74-106 [facility] Comment on above: Performed By: #### P OCGLUC ####[facility] Xwcrilksdy4044 [place] [address]Dr. Emelina Navarro PROF 14(COMP METB)on 023 Albumin [Mass/Vol] 3.3 g/dL Critically low 3.4-5.0 [facility] Comment on above: Performed By: #### B SERVICE RIG OPERATOR, CMP ####[facility] Zvfhwserjp6731 [place] [address]Dr. Emelina Navarro Albumin/Globulin [Mass ratio] 0.8 {ratio} Normal [facility] Comment on above: Performed By: #### B SERVICE RIG OPERATOR, CMP ####[facility] Csmncmcrvb5822 [place] [phone]. Emelina aNvarro ALP [Catalytic activity/Vol] 163 U/L Critically high 46-116 [facility] Comment on above: Performed By: #### B SERVICE RIG OPERATOR, CMP ####[facility] Pwrosoehhv4932 [place] [address]Dr. Emelina Naavrro ALT [Catalytic activity/Vol] 27 U/L Normal 16-63 [facility] Comment on above: Performed By: #### B SERVICE RIG OPERATOR, CMP ####[facility] Akgnjjvswe9585 [place] [address]Dr. Emelina Navarro Anion gap [Moles/Vol] 10.5 mmol/L Normal [facility] Comment on above: Performed By: #### B SERVICE RIG OPERATOR, CMP ####[facility] Nyxdwblfvu7211 [place] [address]Dr. Emelina Navarro AST [Catalytic activity/Vol] 28 U/L Normal 15-37 [facility] Comment on above: Performed By: #### B SERVICE RIG OPERATOR, CMP ####[facility] Craowkcqrm0571 [place] [address]Dr. Emelina Navarro Bilirubin [Mass/Vol] 1.3 mg/dL Critically high 0.2-1.0 [facility] Comment on above: Performed By: #### B SERVICE RIG OPERATOR, CMP ####[facility] Lvblticwui3516 [place] [phone]. Emelina Navarro Calcium [Mass/Vol] 9.0 mg/dL Normal 8.5-10.1 [facility] Comment on above: Performed By: #### B SERVICE RIG OPERATOR, CMP ####[facility] Ohzjycaqok0657 [place] [address]Dr. Emelina Navarro Chloride [Moles/Vol] 91 mmol/L Critically low 98-107 [facility] Comment on above: Performed By: #### B SERVICE RIG OPERATOR, CMP ####[facility] Wnshhhrxvr7693 [place] [address]Dr. Emelina Ramon CO2 [Moles/Vol] 32.9 mmol/L Critically high 21.0-32.0 [facility] Comment on above: Performed By: #### B SERVICE RIG OPERATOR, CMP ####[facility] Dpxxjwxosq484[address] [place], [place] [address]Dr. Emelina Ramon Creatinine [Mass/Vol] 1.84 mg/dL Critically high 0.70-1.30 [facility] Comment on above: Performed By: #### B SERVICE RIG OPERATOR, CMP ####[facility] Yvxidnxwso6499[address] [place], [place] [address]Dr. Awildanitza Ramon EGFR-AF TOGOLESE 45 mL/min/1.73m2 Critically low >=60 [facility] Comment on above: Performed By: #### B SERVICE RIG OPERATOR, CMP ####[facility] Ubrfzvtdmv596[address] [place], [place] [address]Dr. Emelina Nvaarro EGFR-NON AF TOGOLESE 37 mL/min/1.73m2 Critically low >=60 [facility] Comment on above: Performed By: #### B SERVICE RIG OPERATOR, CMP ####[facility] Lgrienpsnk513348 [address] [place], [place] [address]Dr. Awildanitza Ramon Globulin (S) [Mass/Vol] 4.3 g/dL Normal [facility] Comment on above: Performed By: #### B SERVICE RIG OPERATOR, CMP ####[facility] Ioaayzwesr412[address] [place], [place] [address]Dr. Emelina Navarro Glucose [Mass/Vol] 305 mg/dL Critically high 74-106 [facility] Comment on above: Performed By: #### B SERVICE RIG OPERATOR, CMP ####[facility] Yxhausaeao4739[address] [place], [place] [address]Dr. Emelina Navarro Potassium [Moles/Vol] 3.4 mmol/L Critically low 3.5-5.1 [facility] Comment on above: Performed By: #### B SERVICE RIG OPERATOR, CMP ####[facility] Zwqucggmox35364[address] [place], [place] [address]Dr. Emelina Navarro Protein [Mass/Vol] 7.6 g/dL Normal 6.4-8.2 [facility] Comment on above: Performed By: #### B SERVICE RIG OPERATOR, CMP ####[facility] Rltixwaopo8040[address] [place], [place] [address]Dr. Emelina Navarro Sodium [Moles/Vol] 131 mmol/L Critically low 136-145 [facility] Comment on above: Performed By: #### B SERVICE RIG OPERATOR, CMP ####[facility] Qaxdlckael180[address] [place], [place] [address]Dr. Emelina Navarro Urea nitrogen [Mass/Vol] 62.0 mg/dL Critically high 7.0-18.0 [facility] Comment on above: Performed By: #### B SERVICE RIG OPERATOR, CMP ####[facility] Ffegteljwg2864[address] [place], [place] [address]Dr. Emelina Navarro Urea nitrogen/Creatinine [Mass ratio] 33.7 mg/mg Normal [facility] Comment on above: Performed By: #### B SERVICE RIG OPERATOR, CMP ####[facility] Wqwqvxfuto517[address] [place], [place] [address]Dr. Emelina Navarro BNPon 01-10-2023 Natriuretic peptide B (Bld) [Mass/Vol] 8763.0 pg/mL Critically high <=900.0 [facility] Comment on above: Performed By: #### C MP, BNP ####[facility] Xyeqkwthdh113[address] [place], [place] [address]Dr. Emelina Navarro CBC AUTO DIFFon 01-10-2023 BASO # 0.0 103/ul Normal 0.0-0.1 [facility] Comment on above: Performed By: #### C BC ####[facility] Ghzunroaxn9459[address] [place], [place] [address]Dr. Emelina Ramon Basophils/100 WBC (Bld) 0.4 % Normal 0.2-2.0 [facility] Comment on above: Performed By: #### C BC ####[facility] Etiqsyhpgr1230[address] [place], [place] [address]Dr. Emelina Navarro EO # 0.3 103/ul Normal 0.0-0.7 [facility] Comment on above: Performed By: #### C BC ####[facility] Zbygcpmbpu0002 [place] [phone]. Emelina Navarro Eosinophils/100 WBC (Bld) 2.8 % Normal 0.9-7.0 [facility] Comment on above: Performed By: #### C BC ####[facility] Mvzjaxowqf2461 [place] [address]Dr. Emelina Navarro Erythrocyte distribution width (RBC) [Ratio] 17.2 % Critically high 11.0-15.0 [facility] Comment on above: Performed By: #### C BC ####[facility] Nczcykppfa88[address] [place], [place] [address]Dr. Emelina Navarro Hematocrit (Bld) [Volume fraction] 42.1 % Normal 42.0-54.0 [facility] Comment on above: Performed By: #### C BC ####[facility] Dmsbiesnio5744[address] [place], [place] [address]Dr. Emelina Navarro Hemoglobin (Bld) [Mass/Vol] 13.3 g/dL Critically low 14.0-18.0 [facility] Comment on above: Performed By: #### C BC ####[facility] Msnekudzhn419[address] [place], [place] [address]Dr. Emelina Navarro IG # 0.05 10e3/ul Critically high 0.00-0.[address] [facility] Comment on above: Performed By: #### C BC ####[facility] Agnydmblkg0264[address] [place], [place] [address]Dr. Emelina Navarro IG % 0.4 % Normal 0.0-0.5 [facility] Comment on above: Performed By: #### C BC ####[facility] Rhujxmafky1018[address] [place], [place] [address]Dr. Emelina Navarro LYMPH # 1.7 103/ul Normal 1.2-3.8 [facility] Comment on above: Performed By: #### C BC ####[facility] Pmypwdkpfs5437[address] [place], [place] [address]Dr. Emelina Navarro Lymphocytes/100 WBC (Bld) 14.8 % Critically low 20.5-60.0 [facility] Comment on above: Performed By: #### C BC ####[facility] Qjwlqaisjw9601 [place] [phone]. Emelina Navarro MANUAL DIFF REQ NO Normal [facility] Comment on above: Performed By: #### C BC ####[facility] Dogyidbtcw3628 [place] [phone]. Emelina Navarro MCH (RBC) [Entitic mass] 28.4 pg Normal 25.9-34.0 [facility] Comment on above: Performed By: #### C BC ####[facility] Zmjzsxapnc2866 [place] [phone]. Emelina Navarro MCHC (RBC) [Mass/Vol] 31.6 g/dL Normal 29.9-35.2 [facility] Comment on above: Performed By: #### C BC ####[facility] Uzvnrgxksl275[address] [place], [place] [address]Dr. Emelina Navarro MCV (RBC) [Entitic vol] 89.8 fL Normal 80.0-94.0 [facility] Comment on above: Performed By: #### C BC ####[facility] Fizquebbhi[address] [place], [place] [id number]. Emelina Navarro MONO # 0.9 103/ul Critically high 0.3-0.8 [facility] Comment on above: Performed By: #### C BC ####[facility] Feoydkgojp913[address] [place], [place] [address]Dr. Emelina Navarro Monocytes/100 WBC (Bld) 7.6 % Normal 1.7-12.0 [facility] Comment on above: Performed By: #### C BC ####[facility] Fwtcmcxiig15[address] [place], [place] [id number]. Emelina Navarro NEUT # 8.4 103/ul Critically high 1.4-6.5 [facility] Comment on above: Performed By: #### C BC ####[facility] Uocgnxokfk8[address] [place], [place] [id number]. Emelina Navarro Neutrophils/100 WBC (Bld) 74.0 % Normal 43.0-75.0 [facility] Comment on above: Performed By: #### C BC ####[facility] Auwvitnxua9741 [place] [phone]. Emelina Navarro Platelet mean volume (Bld) [Entitic vol] 11.1 fL Normal 9.5-13.5 [facility] Comment on above: Performed By: #### C BC ####[facility] Qbsououayp3942 [place] [phone]. Emelina Navarro PLT 111 103/ul Critically low 150-450 [facility] Comment on above: Performed By: #### C BC ####[facility] Ethrzlonoo6108 [place] [phone]. Emelina Navarro RBC 4.69 106/ul Critically low 4.70-6.10 [facility] Comment on above: Performed By: #### C BC ####[facility] Tbpoqfumnp0754 [place] [address]Dr. Emelina Navarro WBC 11.4 103/ul Critically high 4.0-11.0 [facility] Comment on above: Performed By: #### C BC ####[facility] Wnvlxtukrf5951 [place] [phone]. Emelina Navarro PROF 14(COMP METB)on 023 Albumin [Mass/Vol] 3.3 g/dL Critically low 3.4-5.0 [facility] Comment on above: Performed By: #### C MP, BNP ####[facility] Qijvfavjox7695 [place] [phone]. Emelina Navarro Albumin/Globulin [Mass ratio] 0.8 {ratio} Normal [facility] Comment on above: Performed By: #### C MP, BNP ####[facility] Xxwfdmyuyt8041 [place] [phone]. Emelina Navarro ALP [Catalytic activity/Vol] 165 U/L Critically high 46-116 [facility] Comment on above: Performed By: #### C MP, BNP ####[facility] Mljmzxizhz8050 [place] [phone]. Emelina Navarro ALT [Catalytic activity/Vol] 27 U/L Normal 16-63 [facility] Comment on above: Performed By: #### C MP, BNP ####[facility] Arfloskmxy9779 [place] [address]Dr. Emelina Ramon Anion gap [Moles/Vol] 9.5 mmol/L Normal [facility] Comment on above: Performed By: #### C MP, BNP ####[facility] Rvntubczru0399 [place] [address]Dr. Emelina Ramon AST [Catalytic activity/Vol] 24 U/L Normal 15-37 [facility] Comment on above: Performed By: #### C MP, BNP ####[facility] Xkmglscwyu793[address] [place], [place] [address]Dr. Emelina Navarro Bilirubin [Mass/Vol] 1.3 mg/dL Critically high 0.2-1.0 [facility] Comment on above: Performed By: #### C MP, BNP ####[facility] Zwdzaihter4537[address] [place], [place] [address]Dr. Emelina Navarro Calcium [Mass/Vol] 9.3 mg/dL Normal 8.5-10.1 [facility] Comment on above: Performed By: #### C MP, BNP ####[facility] Tscfeuyylz2732[address] [place], [place] [address]Dr. Emelina Navarro Chloride [Moles/Vol] 93 mmol/L Critically low 98-107 [facility] Comment on above: Performed By: #### C MP, BNP ####[facility] Izkqghpdoh3147[address] [place], [place] [address]Dr. Emelina Navarro CO2 [Moles/Vol] 36.4 mmol/L Critically high 21.0-32.0 [facility] Comment on above: Performed By: #### C MP, BNP ####[facility] Wxchgqtbms089[address] [place], [place] [address]Dr. Emelina Navarro Creatinine [Mass/Vol] 1.99 mg/dL Critically high 0.70-1.30 [facility] Comment on above: Performed By: #### C MP, BNP ####[facility] Ufsnnhjgji311[address] [place], [place] [address]Dr. Emelina Navarro EGFR-AF TOGOLESE 41 mL/min/1.73m2 Critically low >=60 [facility] Comment on above: Performed By: #### C MP, BNP ####[facility] Gyiafyqwoq717[address] [place], [place] [address]Dr. Emelina Navarro EGFR-NON AF TOGOLESE 34 mL/min/1.73m2 Critically low >=60 [facility] Comment on above: Performed By: #### C MP, BNP ####[facility] Wxvlvkbolg2968[address] [place], [place] [address]Dr. Emelina Navarro Globulin (S) [Mass/Vol] 4.2 g/dL Normal [facility] Comment on above: Performed By: #### C MP, BNP ####[facility] Fsgurkfyou558[address] [place], [place] [address]Dr. Emelina Navarro Glucose [Mass/Vol] 311 mg/dL Critically high 74-106 [facility] Comment on above: Performed By: #### C MP, BNP ####[facility] Jykerhcbqm913[address] [place], [place] [address]Dr. Emelina Navarro Potassium [Moles/Vol] 3.9 mmol/L Normal 3.5-5.1 [facility] Comment on above: Performed By: #### C MP, BNP ####[facility] Hvwyjgavbf16[address] [place], [place] [address]Dr. Emelina Navarro Protein [Mass/Vol] 7.5 g/dL Normal 6.4-8.2 [facility] Comment on above: Performed By: #### C MP, BNP ####[facility] Bqvryiyulj85[address] [place], [place] [address]Dr. Emelina Navarro Sodium [Moles/Vol] 135 mmol/L Critically low 136-145 [facility] Comment on above: Performed By: #### C MP, BNP ####[facility] Szlpspismv0350[address] [place], [place] [address]Dr. Emelina Navarro Urea nitrogen [Mass/Vol] 57.0 mg/dL Critically high 7.0-18.0 [facility] Comment on above: Performed By: #### C MP, BNP ####[facility] Tntsgwuogj9643 [place] [address]Dr. Emelina Navarro Urea nitrogen/Creatinine [Mass ratio] 28.6 mg/mg Normal [facility] Comment on above: Performed By: #### C MP, BNP ####[facility] Hexlpewcbq257[address] [place], [place] [address]Dr. Emelina Navarro BNPon 01-09-2023 Natriuretic peptide B (Bld) [Mass/Vol] 9097.0 pg/mL Critically high <=900.0 [facility] Comment on above: Performed By: #### B SERVICE RIG OPERATOR, CMP ####[facility] Paolfpqqwq20[address] [place], [place] [address]Dr. Emelina Ramon CBC AUTO DIFFon 01-09-2023 BASO # 0.0 103/ul Normal 0.0-0.1 [facility] Comment on above: Performed By: #### C BC ####[facility] Mxtlircaeq45[address] [place], [place] [address]Dr. Emelina Navarro Basophils/100 WBC (Bld) 0.2 % Normal 0.2-2.0 [facility] Comment on above: Performed By: #### C BC ####[facility] Tvtdlcxqzh4165[address] [place], [place] [address]Dr. Emelina Ramon EO # 0.2 103/ul Normal 0.0-0.7 [facility] Comment on above: Performed By: #### C BC ####[facility] Lquspwpehd[address] [place], [place] [address]Dr. Awildanitza Navarro Eosinophils/100 WBC (Bld) 2.1 % Normal 0.9-7.0 [facility] Comment on above: Performed By: #### C BC ####[facility] Gjejvuqkvt7[address] [place], [place] [address]Dr. Awildanitza Navarro Erythrocyte distribution width (RBC) [Ratio] 17.1 % Critically high 11.0-15.0 [facility] Comment on above: Performed By: #### C BC ####[facility] Rykpsluerr88[address] [place], [place] [address]Dr. Emelina Navarro Hematocrit (Bld) [Volume fraction] 40.5 % Critically low 42.0-54.0 [facility] Comment on above: Performed By: #### C BC ####[facility] Tyozvsogdj9580 [place] [address]Dr. Emelina Ramon Hemoglobin (Bld) [Mass/Vol] 13.0 g/dL Critically low 14.0-18.0 [facility] Comment on above: Performed By: #### C BC ####[facility] Qulrvltcdd2018 [place] [address]Dr. Awildanitza Ramon IG # 0.06 10e3/ul Critically high 0.00-0.[address] [facility] Comment on above: Performed By: #### C BC ####[facility] Hqzvvlkswp3941 [place] [address]Dr. Emelina Navarro IG % 0.5 % Normal 0.0-0.5 [facility] Comment on above: Performed By: #### C BC ####[facility] Yobnfjhgxu[address] [place], [place] [address]Dr. Emelina Navarro LYMPH # 1.6 103/ul Normal 1.2-3.8 [facility] Comment on above: Performed By: #### C BC ####[facility] Txrnbngmsi8781 [place] [address]Dr. Emelina Navarro Lymphocytes/100 WBC (Bld) 14.1 % Critically low 20.5-60.0 [facility] Comment on above: Performed By: #### C BC ####[facility] Onjetdppid7947 [place] [address]Dr. Emelina Navarro MANUAL DIFF REQ NO Normal [facility] Comment on above: Performed By: #### C BC ####[facility] Qoaqkcdpiw2403 [place] [phone]. Emelina Navarro MCH (RBC) [Entitic mass] 28.4 pg Normal 25.9-34.0 [facility] Comment on above: Performed By: #### C BC ####[facility] Wyyemermob8992 [place] [phone]. Emelina Navarro MCHC (RBC) [Mass/Vol] 32.1 g/dL Normal 29.9-35.2 [facility] Comment on above: Performed By: #### C BC ####[facility] Rzwwxltequ8107 [place] [phone] Emelina Navarro MCV (RBC) [Entitic vol] 88.4 fL Normal 80.0-94.0 [facility] Comment on above: Performed By: #### C BC ####[facility] Wsedahqhzq7153 [place] [phone] Emelina Ramon MONO # 0.9 103/ul Critically high 0.3-0.8 [facility] Comment on above: Performed By: #### C BC ####[facility] Hvfpiwwldk4041 [place] [address]DrWesley Awildanitza Navarro Monocytes/100 WBC (Bld) 8.0 % Normal 1.7-12.0 [facility] Comment on above: Performed By: #### C BC ####[facility] Gdnbqunfos5582 [place] [address]Dr. Emelina Navarro NEUT # 8.6 103/ul Critically high 1.4-6.5 [facility] Comment on above: Performed By: #### C BC ####[facility] Kxaowrhpfk[address] [place], [place] [address]Dr. Emelina Ramon Neutrophils/100 WBC (Bld) 75.1 % Critically high 43.0-75.0 [facility] Comment on above: Performed By: #### C BC ####[facility] Epcawxpsrz[address] [place], [place] [address]Dr. Emelina Ramon Platelet mean volume (Bld) [Entitic vol] 11.2 fL Normal 9.5-13.5 [facility] Comment on above: Performed By: #### C BC ####[facility] Ngpyuzsxyy1588 [place] [phone]. Emelina Navarro PLT 99 103/ul Critically low 150-450 [facility] Comment on above: Performed By: #### C BC ####[facility] Xqtilrqeps9768 [place] [phone] Navarro RBC 4.58 106/ul Critically low 4.70-6.10 [facility] Comment on above: Performed By: #### C BC ####[facility] Jwulckomak9314 [place] [address]Dr. Emelina Navarro WBC 11.5 103/ul Critically high 4.0-11.0 [facility] Comment on above: Performed By: #### C BC ####[facility] Nbyioqvhhy2298 [place] [address]Dr. Emelina Navarro CT HEAD WO CONon 01-09-2023 CT HEAD WO CON Normal [facility] PROF 14(COMP METB)on 023 Albumin [Mass/Vol] 3.2 g/dL Critically low 3.4-5.0 [facility] Comment on above: Performed By: #### B SERVICE RIG OPERATOR, CMP ####[facility] Lezulbywcf8710 [place] [address]Dr. Emelina Navarro Albumin/Globulin [Mass ratio] 0.8 {ratio} Normal [facility] Comment on above: Performed By: #### B SERVICE RIG OPERATOR, CMP ####[facility] Ucfgtqrepl5959 [place] [address]Dr. Emelina Navarro ALP [Catalytic activity/Vol] 150 U/L Critically high 46-116 [facility] Comment on above: Performed By: #### B SERVICE RIG OPERATOR, CMP ####[facility] Ojnecovevh3188 [place] [address]Dr. Emelina Navarro ALT [Catalytic activity/Vol] 27 U/L Normal 16-63 [facility] Comment on above: Performed By: #### B SERVICE RIG OPERATOR, CMP ####[facility] Beillktift1787 [place] [address]Dr. Emelina Navarro Anion gap [Moles/Vol] 9.7 mmol/L Normal [facility] Comment on above: Performed By: #### B SERVICE RIG OPERATOR, CMP ####[facility] Ukfynfjfue5107 [place] [address]Dr. Emelina Navarro AST [Catalytic activity/Vol] 29 U/L Normal 15-37 [facility] Comment on above: Performed By: #### B SERVICE RIG OPERATOR, CMP ####[facility] Kwaehqcqhg1453 [place] [phone]. Emelina Navarro Bilirubin [Mass/Vol] 1.3 mg/dL Critically high 0.2-1.0 [facility] Comment on above: Performed By: #### B SERVICE RIG OPERATOR, CMP ####[facility] Nrpueknfxl4[address] [place], [place] [address]Dr. Emelina Navarro Calcium [Mass/Vol] 9.0 mg/dL Normal 8.5-10.1 [facility] Comment on above: Performed By: #### B SERVICE RIG OPERATOR, CMP ####[facility] Azhkrpnylq[address] [place], [place] [address]Dr. Emelina Navarro Chloride [Moles/Vol] 93 mmol/L Critically low 98-107 [facility] Comment on above: Performed By: #### B SERVICE RIG OPERATOR, CMP ####[facility] Xwkemncklm3[address] [place], [place] [address]Dr. Emelina Navarro CO2 [Moles/Vol] 33.6 mmol/L Critically high 21.0-32.0 [facility] Comment on above: Performed By: #### B SERVICE RIG OPERATOR, CMP ####[facility] Bkukdtfkvn[address] [place], [place] [address]Dr. Emelina Navarro Creatinine [Mass/Vol] 1.75 mg/dL Critically high 0.70-1.30 [facility] Comment on above: Performed By: #### B SERVICE RIG OPERATOR, CMP ####[facility] [facility] [address] [place], [place] [address]Dr. Emelina Navarro EGFR-AF TOGOLESE 47 mL/min/1.73m2 Critically low >=60 [facility] Comment on above: Performed By: #### B SERVICE RIG OPERATOR, CMP ####[facility] Zkmlnnejjv[address] [place], [place] [address]Dr. Emelina Ramon EGFR-NON AF TOGOLESE 39 mL/min/1.73m2 Critically low >=60 [facility] Comment on above: Performed By: #### B SERVICE RIG OPERATOR, CMP ####[facility] Osllepxast[address] [place], [place] [address]Dr. Emelina Navarro Globulin (S) [Mass/Vol] 4.1 g/dL Normal [facility] Comment on above: Performed By: #### B SERVICE RIG OPERATOR, CMP ####[facility] Fbltinyqca[address] [place] [address]Dr. Emelina Navarro Glucose [Mass/Vol] 235 mg/dL Critically high 74-106 [facility] Comment on above: Performed By: #### B SERVICE RIG OPERATOR, CMP ####[facility] Buuxnzcilw[address] [place], [place] [address]Dr. Emelina Navarro Potassium [Moles/Vol] 3.3 mmol/L Critically low 3.5-5.1 [facility] Comment on above: Performed By: #### B SERVICE RIG OPERATOR, CMP ####[facility] Dyoiqxmxuk[address] [place], [place] [address]Dr. Emelina Navarro Protein [Mass/Vol] 7.3 g/dL Normal 6.4-8.2 [facility] Comment on above: Performed By: #### B SERVICE RIG OPERATOR, CMP ####[facility] Eibrikuslz[address] [place], [place] [address]Dr. Emelina Navarro Sodium [Moles/Vol] 133 mmol/L Critically low 136-145 [facility] Comment on above: Performed By: #### B SERVICE RIG OPERATOR, CMP ####[facility] Bqhufsdhnr[address] [place], [place] [address]Dr. Emelina Navarro Urea nitrogen [Mass/Vol] 50.0 mg/dL Critically high 7.0-18.0 [facility] Comment on above: Performed By: #### B SERVICE RIG OPERATOR, CMP ####[facility] Diaeocholj[address] [place], [place] [address]Dr. Emelina Navarro Urea nitrogen/Creatinine [Mass ratio] 28.6 mg/mg Normal [facility] Comment on above: Performed By: #### B SERVICE RIG OPERATOR, CMP ####[facility] Hcmoqowftl[address] [place], [place] [address]Dr. Emelina Navarro BNPon 01-08-2023 Natriuretic peptide B (Bld) [Mass/Vol] 8174.0 pg/mL Critically high <=900.0 [facility] Comment on above: Performed By: #### B SERVICE RIG OPERATOR ####[facility] Nvtxfufkgn[address] [place], [place] [address]Dr. Emelina Navarro CBC AUTO DIFFon 01-08-2023 BASO # 0.0 103/ul Normal 0.0-0.1 [facility] Comment on above: Performed By: #### C BC ####[facility] [address]vtupq[address] [place] [address]Dr. Emelina Navarro Basophils/100 WBC (Bld) 0.2 % Normal 0.2-2.0 [facility] Comment on above: Performed By: #### C BC ####[facility] Mngqynowkw34[address] [place] [address]Dr. Emelina Navarro EO # 0.2 103/ul Normal 0.0-0.7 [facility] Comment on above: Performed By: #### C BC ####[facility] Gslwwnopvz3[address] [place] [address]Dr. Emelina Navarro Eosinophils/100 WBC (Bld) 1.7 % Normal 0.9-7.0 [facility] Comment on above: Performed By: #### C BC ####[facility] Qffsjshekm4717 [place] [address]Dr. Emelina Navarro Erythrocyte distribution width (RBC) [Ratio] 17.4 % Critically high 11.0-15.0 [facility] Comment on above: Performed By: #### C BC ####[facility] K[address]lenbmgl[address] [place] [address]Dr. Emelina Navarro Hematocrit (Bld) [Volume fraction] 40.8 % Critically low 42.0-54.0 [facility] Comment on above: Performed By: #### C BC ####[facility] Drzfiwkjuk34[address] [place] [address]Dr. Emelina Navarro Hemoglobin (Bld) [Mass/Vol] 13.3 g/dL Critically low 14.0-18.0 [facility] Comment on above: Performed By: #### C BC ####[facility] Mmzhoyyhef[address] [place] [address]Dr. Emelina Ramon IG # 0.05 10e3/ul Critically high 0.00-0.[address] [facility] Comment on above: Performed By: #### C BC ####[facility] Nyukpyhxbn9580 [place] [phone]. Emelina Navarro IG % 0.4 % Normal 0.0-0.5 [facility] Comment on above: Performed By: #### C BC ####[facility] Qknrkhmjka3323 [place] [phone]. Emelina Navarro LYMPH # 1.7 103/ul Normal 1.2-3.8 [facility] Comment on above: Performed By: #### C BC ####[facility] Smqbtjsusy8541 [place] [phone]. Emelina Ramon Lymphocytes/100 WBC (Bld) 12.5 % Critically low 20.5-60.0 [facility] Comment on above: Performed By: #### C BC ####[facility] Uiecrsxwxc37[address] [place] [phone]. Emelina Navarro MANUAL DIFF REQ NO Normal [facility] Comment on above: Performed By: #### C BC ####[facility] Tuhdzookgv8672 [place] [phone]. Emelina Navarro MCH (RBC) [Entitic mass] 29.1 pg Normal 25.9-34.0 [facility] Comment on above: Performed By: #### C BC ####[facility] Mxcglaypnk4767 [place] [phone]. Emelina Navarro MCHC (RBC) [Mass/Vol] 32.6 g/dL Normal 29.9-35.2 [facility] Comment on above: Performed By: #### C BC ####[facility] [address] [place], [place] [id number]. Emelina Navarro MCV (RBC) [Entitic vol] 89.3 fL Normal 80.0-94.0 [facility] Comment on above: Performed By: #### C BC ####[facility] Kbhubxncpy1263 [place] [phone]. Emelina Ramon MONO # 1.0 103/ul Critically high 0.3-0.8 [facility] Comment on above: Performed By: #### C BC ####[facility] Avhlosrzlz4426 [place] [phone]. Emelina Navarro Monocytes/100 WBC (Bld) 7.6 % Normal 1.7-12.0 [facility] Comment on above: Performed By: #### C BC ####[facility] Gwewlzaksi9899 [place] [phone]. Emelina Navarro NEUT # 10.3 103/ul Critically high 1.4-6.5 [facility] Comment on above: Performed By: #### C BC ####[facility] Muizgidqzh0303 [place] [phone]. Emelina Navarro Neutrophils/100 WBC (Bld) 77.6 % Critically high 43.0-75.0 [facility] Comment on above: Performed By: #### C BC ####[facility] Clcwflvhir9342 [place] [phone]. Emelina Navarro Platelet mean volume (Bld) [Entitic vol] 11.0 fL Normal 9.5-13.5 [facility] Comment on above: Performed By: #### C BC ####[facility] Iynmitkzeb7595 [place] [phone]. Emelina Navarro PLT 106 103/ul Critically low 150-450 [facility] Comment on above: Performed By: #### C BC ####[facility] Uvyevwzrce9660 [place] [phone]. Emelina Navarro RBC 4.57 106/ul Critically low 4.70-6.10 [facility] Comment on above: Performed By: #### C BC ####[facility] Rvkzouviug4371 [place] [phone]. Emelina Navarro WBC 13.3 103/ul Critically high 4.0-11.0 [facility] Comment on above: Performed By: #### C BC ####[facility] Jejjnxsxtf6437 [place] [phone]. Emelina Navarro CULTURE URINEon 01-08-2023 CULTURE URINE Culture Observations : LIGHT GROWTH OF MIXED SKIN CEDRIC. NO POTENTIAL PATHOGENS SEEN. Normal [facility] Comment on above: Performed By: #### U RCX ####[facility] [address]esgsoygbs[address] [place] [address]Dr. Emelina Navarro ECHOCARDIO M/2D COMPLETEon 0 01-08-2023 ECHOCARDIO M/2D COMPLETE Normal [facility] PROCALCITONINon 01-08-2023 Procalcitonin 0.10 ng/mL Critically high 0.00-0.08 [facility] Comment on [...] are obtained. Performed By: #### P CTLC ####[facility] P[address]rihbkkmk[address] [place] [address]Dr. Emelina Navarro PROF 14(COMP METB)on 023 Albumin [Mass/Vol] 3.3 g/dL Critically low 3.4-5.0 [facility] Comment on above: Performed By: #### C MP ####[facility] Ftvgkllmyy8[address] [place] [address]Dr. Emelina Navarro Albumin/Globulin [Mass ratio] 0.8 {ratio} Normal [facility] Comment on above: Performed By: #### C MP ####[facility] Xunoroyhux67[address] [place] [address]Dr. Emelina Navarro ALP [Catalytic activity/Vol] 140 U/L Critically high 46-116 [facility] Comment on above: Performed By: #### C MP ####[facility] Ccxrqmwwlp4831 [place], [place] [address]St. Emelina Navarro ALT [Catalytic activity/Vol] 22 U/L Normal 16-63 [facility] Comment on above: Performed By: #### C MP ####[facility] Koyeslcjhb7905 [place], [place] [address]Nz. Emelina Navarro Anion gap [Moles/Vol] 13.1 mmol/L Normal [facility] Comment on above: Performed By: #### C MP ####[facility] Iizghicwdo5629 [place] [phone]. Emelina Navarro AST [Catalytic activity/Vol] 21 U/L Normal 15-37 [facility] Comment on above: Performed By: #### C MP ####[facility] Gvbodjalka9984 [place] [phone]. Emelina Navarro Bilirubin [Mass/Vol] 1.3 mg/dL Critically high 0.2-1.0 [facility] Comment on above: Performed By: #### C MP ####[facility] Bkqjjbqrgw5764 [place] [phone]. Emelina Navarro Calcium [Mass/Vol] 9.1 mg/dL Normal 8.5-10.1 [facility] Comment on above: Performed By: #### C MP ####[facility] Fohlrbzlph0138 [place] [phone]. Emelina Navarro Chloride [Moles/Vol] 95 mmol/L Critically low 98-107 [facility] Comment on above: Performed By: #### C MP ####[facility] Wqbfthjcqg5049 [place] [phone]. Emelina Navarro CO2 [Moles/Vol] 30.4 mmol/L Normal 21.0-32.0 [facility] Comment on above: Performed By: #### C MP ####[facility] Sbwtngrpei1544 [place] [phone]. Emelina Navarro Creatinine [Mass/Vol] 1.67 mg/dL Critically high 0.70-1.30 [facility] Comment on above: Performed By: #### C MP ####[facility] Nobyuclmjr6826 [place], [place] [address]Yk. Emelina Navarro EGFR-AF TOGOLESE 50 mL/min/1.73m2 Critically low >=60 [facility] Comment on above: Performed By: #### C MP ####[facility] Svismtyfba6961 [place] [phone]. Emelina Navarro EGFR-NON AF TOGOLESE 41 mL/min/1.73m2 Critically low >=60 [facility] Comment on above: Performed By: #### C MP ####[facility] Kbsulxrbqe8393 [place] [phone]. Emelina Navarro Globulin (S) [Mass/Vol] 3.9 g/dL Normal [facility] Comment on above: Performed By: #### C MP ####[facility] Ixurkavhcc7443 [place] [phone]. Emelina Navarro Glucose [Mass/Vol] 198 mg/dL Critically high 74-106 [facility] Comment on above: Performed By: #### C MP ####[facility] Elunfdcnku3487 [place] [phone]. Emelina Navarro Potassium [Moles/Vol] 3.5 mmol/L Normal 3.5-5.1 [facility] Comment on above: Performed By: #### C MP ####[facility] Cmqtfhwytz3677 [place] [phone]. Emelina Navarro Protein [Mass/Vol] 7.2 g/dL Normal 6.4-8.2 [facility] Comment on above: Performed By: #### C MP ####[facility] Lihnafqcll7314 [place] [phone]. Emelina Navarro Sodium [Moles/Vol] 135 mmol/L Critically low 136-145 [facility] Comment on above: Performed By: #### C MP ####[facility] Xwegbhottv3590 [place] [phone]. Emelina Navarro Urea nitrogen [Mass/Vol] 42.0 mg/dL Critically high 7.0-18.0 [facility] Comment on above: Performed By: #### C MP ####[facility] Nnavjiiwbz5078 [place] [address]Dr. Emelina Navarro Urea nitrogen/Creatinine [Mass ratio] 25.1 mg/mg Normal [facility] Comment on above: Performed By: #### C MP ####[facility] Trpestsins[address] [place], [place] [address]Dr. Emelina Navarro PROTIMEon 01-08-2023 INR Coag (PPP) [Relative time] 2.59 {INR} Normal [facility] Comment on above: Performed By: #### P T ####[facility] Yzemptbhux[address] [place], [place] [address]Dr. Emelina Navarro INR GUIDELINES SEE BELOW Normal [facility] Comment on above: Result Comment: WENDY RED INR: 2.0 - 3.0 CONDITIONS NOT LISTED BELOW 2.5 - 3.5 FOR PROSTHETIC HEART VALVE REPLACEMENT 2.5 - 3.5 RECURRENT THROMBOSIS Performed By: #### P T ####[facility] Fdhymsfcwi[address] [place], [place] [address]Dr. Emelina Navarro PT Coag (PPP) [Time] 26.0 s Critically high 9.0-11.6 [facility] Comment on above: Performed By: #### P T ####[facility] Mmahweacvi[address] [place], [place] [address]Dr. Emelina Navarro CBC AUTO DIFFon 01-07-2023 BASO # 0.0 103/ul Normal 0.0-0.1 [facility] Comment on above: Performed By: #### C BC ####[facility] E[address]yzfdfkv[address] [place], [place] [address]Dr. Emelina Navarro Basophils/100 WBC (Bld) 0.3 % Normal 0.2-2.0 [facility] Comment on above: Performed By: #### C BC ####[facility] V[address]hmzuxca[address] [place], [place] [address]Dr. Emelina Navarro EO # 0.3 103/ul Normal 0.0-0.7 [facility] Comment on above: Performed By: #### C BC ####[facility] Ivfdfromel[address] [place], [place] [address]Dr. Emelina aNvarro Eosinophils/100 WBC (Bld) 2.3 % Normal 0.9-7.0 [facility] Comment on above: Performed By: #### C BC ####[facility] Orstozsmby0[address] [place] [address]Dr. Emelina Navarro Erythrocyte distribution width (RBC) [Ratio] 17.8 % Critically high 11.0-15.0 [facility] Comment on above: Performed By: #### C BC ####[facility] Mnonehbmam9309 [place] [address]Dr. Emelina Navarro Hematocrit (Bld) [Volume fraction] 43.3 % Normal 42.0-54.0 [facility] Comment on above: Performed By: #### C BC ####[facility] Cwboagoold8840 [place] [address]Dr. Emelina Navarro Hemoglobin (Bld) [Mass/Vol] 13.6 g/dL Critically low 14.0-18.0 [facility] Comment on above: Performed By: #### C BC ####[facility] Fbbgfrfwru3420 [place] [address]Dr. Emelina Navarro IG # 0.05 10e3/ul Critically high 0.00-0.[address] [facility] Comment on above: Performed By: #### C BC ####[facility] Dtoeybvbew6600 [place] [address]Dr. Emelina Navarro IG % 0.4 % Normal 0.0-0.5 [facility] Comment on above: Performed By: #### C BC ####[facility] Vcwtouydhp6412 [place] [address]Dr. Emelina Navarro LYMPH # 1.8 103/ul Normal 1.2-3.8 [facility] Comment on above: Performed By: #### C BC ####[facility] Uzyzltedio1523 [place] [address]Dr. Emelina Navarro Lymphocytes/100 WBC (Bld) 12.8 % Critically low 20.5-60.0 [facility] Comment on above: Performed By: #### C BC ####[facility] Hdrcrjhrwf0212 [place] [phone]. Emelina Navarro MANUAL DIFF REQ NO Normal [facility] Comment on above: Performed By: #### C BC ####[facility] Lsbefdxhht7028 [place] [phone]. Emelina Navarro MCH (RBC) [Entitic mass] 28.4 pg Normal 25.9-34.0 [facility] Comment on above: Performed By: #### C BC ####[facility] Vzvavnqfnn5025 [place] [address]Dr. Emelina Navarro MCHC (RBC) [Mass/Vol] 31.4 g/dL Normal 29.9-35.2 [facility] Comment on above: Performed By: #### C BC ####[facility] Hjkonivdyt8683 [place] [address]Dr. Emelina Ramon MCV (RBC) [Entitic vol] 90.4 fL Normal 80.0-94.0 [facility] Comment on above: Performed By: #### C BC ####[facility] Tvgdaizluh1295 [place] [address]Dr. Emelina Ramon MONO # 0.9 103/ul Critically high 0.3-0.8 [facility] Comment on above: Performed By: #### C BC ####[facility] Hrrlkawisq8056 [place] [address]Dr. Awildanitza Navarro Monocytes/100 WBC (Bld) 6.8 % Normal 1.7-12.0 [facility] Comment on above: Performed By: #### C BC ####[facility] Kicwflqfye5247 [place] [address]Dr. Awildanitza Ramon NEUT # 10.7 103/ul Critically high 1.4-6.5 [facility] Comment on above: Performed By: #### C BC ####[facility] Gupmeflfin4123 [place] [phone]. Emelina Navarro Neutrophils/100 WBC (Bld) 77.4 % Critically high 43.0-75.0 [facility] Comment on above: Performed By: #### C BC ####[facility] Skbrbtqdrd6117 [place] [phone]. Awildanitza Ramon Platelet mean volume (Bld) [Entitic vol] 11.5 fL Normal 9.5-13.5 [facility] Comment on above: Performed By: #### C BC ####[facility] Ancpefczwh4628 [place] [phone]. Emelina Navarro PLT 114 103/ul Critically low 150-450 [facility] Comment on above: Performed By: #### C BC ####[facility] Vjlvfbjeno6194 [place] [phone]. Emelina Navarro RBC 4.79 106/ul Normal 4.70-6.10 [facility] Comment on above: Performed By: #### C BC ####[facility] Rpyyshhbzw0970 [place] [address]Dr. Emelina Navarro WBC 13.8 103/ul Critically high 4.0-11.0 [facility] Comment on above: Performed By: #### C BC ####[facility] Ptpomkqhsf2316 [place] [address]Dr. Emelina Navarro PROF 14(COMP METB)on 023 Albumin [Mass/Vol] 3.4 g/dL Normal 3.4-5.0 [facility] Comment on above: Performed By: #### C MP ####[facility] Igdvuqcsth0993 [place] [address]Dr. Emelina Navarro Albumin/Globulin [Mass ratio] 0.9 {ratio} Normal [facility] Comment on above: Performed By: #### C MP ####[facility] Gnagqlcszg2478 [place] [phone]. Emelina Navarro ALP [Catalytic activity/Vol] 130 U/L Critically high 46-116 [facility] Comment on above: Performed By: #### C MP ####[facility] Rdjowuemrk9370 [place] [address]Dr. Emelina Navarro ALT [Catalytic activity/Vol] 24 U/L Normal 16-63 [facility] Comment on above: Performed By: #### C MP ####[facility] Wiizuzcoey7175 [place] [phone]. Emelina Navarro Anion gap [Moles/Vol] 12.2 mmol/L Normal [facility] Comment on above: Performed By: #### C MP ####[facility] Asmwfceoga0366 [place] [address]Dr. Emelina Navarro AST [Catalytic activity/Vol] 22 U/L Normal 15-37 [facility] Comment on above: Performed By: #### C MP ####[facility] Hhmvqemcea0156 [place] [address]Dr. Emelina Navarro Bilirubin [Mass/Vol] 1.1 mg/dL Critically high 0.2-1.0 [facility] Comment on above: Performed By: #### C MP ####[facility] [address]aczjsoaaa[address] [place], [place] [address]Dr. Emelina Navarro Calcium [Mass/Vol] 9.0 mg/dL Normal 8.5-10.1 [facility] Comment on above: Performed By: #### C MP ####[facility] Npsdcxhsck[address] [place], [place] [address]Dr. Emelina Navarro Chloride [Moles/Vol] 99 mmol/L Normal 98-107 [facility] Comment on above: Performed By: #### C MP ####[facility] Bmsjadjolm[address] [place], [place] [address]Dr. Emelina Navarro CO2 [Moles/Vol] 30.5 mmol/L Normal 21.0-32.0 [facility] Comment on above: Performed By: #### C MP ####[facility] Mtothexmma350[address] [place], [place] [address]Dr. Emelina Ramon Creatinine [Mass/Vol] 1.58 mg/dL Critically high 0.70-1.30 [facility] Comment on above: Performed By: #### C MP ####[facility] Ctmhmoktoi10[address] [place], [place] [address]Dr. Emelina Ramon EGFR-AF TOGOLESE 53 mL/min/1.73m2 Critically low >=60 [facility] Comment on above: Performed By: #### C MP ####[facility] Zvfhywmxlw4620 [place] [phone]. Emelina Navarro EGFR-NON AF TOGOLESE 44 mL/min/1.73m2 Critically low >=60 [facility] Comment on above: Performed By: #### C MP ####[facility] Oequkeuqwm7035 [place] [phone]. Emelina Navarro Globulin (S) [Mass/Vol] 3.9 g/dL Normal [facility] Comment on above: Performed By: #### C MP ####[facility] Hseoxucwhr0538 [place] [address]Dr. Emelina Navarro Glucose [Mass/Vol] 195 mg/dL Critically high 74-106 [facility] Comment on above: Performed By: #### C MP ####[facility] Sjnquxgxoc1153 [place] [address]Dr. Emelina Navarro Potassium [Moles/Vol] 3.7 mmol/L Normal 3.5-5.1 [facility] Comment on above: Performed By: #### C MP ####[facility] Wlrdgqtctd9634 [place] [address]Dr. Emelina Navarro Protein [Mass/Vol] 7.3 g/dL Normal 6.4-8.[address] [facility] Comment on above: Performed By: #### C MP ####[facility] Lsefesgqeb0830 [place] [address]Dr. Emelina Navarro Sodium [Moles/Vol] 138 mmol/L Normal 136-[address] [facility] Comment on above: Performed By: #### C MP ####[facility] Eslbkzfuha7609 [place] [address]Dr. Emelina Navarro Urea nitrogen [Mass/Vol] 36.0 mg/dL Critically high 7.0-18.0 [facility] Comment on above: Performed By: #### C MP ####[facility] Qxfjhchgkk2158 [place] [address]Dr. Emelina Navarro Urea nitrogen/Creatinine [Mass ratio] 22.8 mg/mg Normal [facility] Comment on above: Performed By: #### C MP ####[facility] Lsegtumpbp4432 [place] [address]Dr. Emelina Navarro CBC AUTO DIFFon 01-06-2023 BASO # 0.0 103/ul Normal 0.0-0.1 [facility] Comment on above: Performed By: #### C BC ####[facility] Geywvkwncj[address] [place], [place] [address]Dr. Emelina Navarro Basophils/100 WBC (Bld) 0.3 % Normal 0.2-2.0 [facility] Comment on above: Performed By: #### C BC ####[facility] Iywwabbcus8[address] [place], [place] [address]Dr. Emelina Navarro EO # 0.3 103/ul Normal 0.0-0.7 [facility] Comment on above: Performed By: #### C BC ####[facility] Riytpzughq20[address] [place], [place] [address]Dr. Emelina Navarro Eosinophils/100 WBC (Bld) 2.2 % Normal 0.9-7.0 [facility] Comment on above: Performed By: #### C BC ####[facility] Rcplojqtth25[address] [place], [place] [address]Dr. Emelina Navarro Erythrocyte distribution width (RBC) [Ratio] 17.9 % Critically high 11.0-15.0 [facility] Comment on above: Performed By: #### C BC ####[facility] [address]qzntkmwt[address] [place], [place] [address]Dr. Emelina Navarro Hematocrit (Bld) [Volume fraction] 40.9 % Critically low 42.0-54.0 [facility] Comment on above: Performed By: #### C BC ####[facility] Enbuhjzmjd[address] [place], [place] [address]Dr. Emelina Navarro Hemoglobin (Bld) [Mass/Vol] 12.9 g/dL Critically low 14.0-18.0 [facility] Comment on above: Performed By: #### C BC ####[facility] W[address]ix[address]ajh[address] [place], [place] [address]Dr. Awildanitza Navarro IG # 0.04 10e3/ul Critically high 0.00-0.[address] [facility] Comment on above: Performed By: #### C BC ####[facility] Mojbaovzvm4568 [place] [phone]. Awildanitza Navarro IG % 0.3 % Normal 0.0-0.5 [facility] Comment on above: Performed By: #### C BC ####[facility] Tkaawjpgbn9425 [place] [phone]. Emelina Navarro LYMPH # 2.2 103/ul Normal 1.2-3.8 [facility] Comment on above: Performed By: #### C BC ####[facility] Hqaokylcns7542 [place] [phone]. Awildanitza Navarro Lymphocytes/100 WBC (Bld) 17.3 % Critically low 20.5-60.0 [facility] Comment on above: Performed By: #### C BC ####[facility] Fykqsbtmmj5937 [place] [phone]. Emelina Navarro MANUAL DIFF REQ NO Normal [facility] Comment on above: Performed By: #### C BC ####[facility] Flhxajhqll9286 [place] [phone]. Emelina Navarro MCH (RBC) [Entitic mass] 28.5 pg Normal 25.9-34.0 [facility] Comment on above: Performed By: #### C BC ####[facility] Vtlqdzdsji4545 [place] [phone]. Emelina Navarro MCHC (RBC) [Mass/Vol] 31.5 g/dL Normal 29.9-35.2 [facility] Comment on above: Performed By: #### C BC ####[facility] Itzrwiqpmh3054 [place] [phone]. Emelina Navarro MCV (RBC) [Entitic vol] 90.3 fL Normal 80.0-94.0 [facility] Comment on above: Performed By: #### C BC ####[facility] Tcehzjyqbk2498 [place] [phone]. Emelina Navarro MONO # 0.9 103/ul Critically high 0.3-0.8 [facility] Comment on above: Performed By: #### C BC ####[facility] Diwbdrtvbp1364 [place] [phone]. Emelina Navarro Monocytes/100 WBC (Bld) 7.5 % Normal 1.7-12.0 [facility] Comment on above: Performed By: #### C BC ####[facility] Zoyxjpmncc2754 [place] [phone]. Emelina Navarro NEUT # 9.1 103/ul Critically high 1.4-6.5 [facility] Comment on above: Performed By: #### C BC ####[facility] Vqjfhgyksv8082 [place] [phone]. Emelina Navarro Neutrophils/100 WBC (Bld) 72.4 % Normal 43.0-75.0 [facility] Comment on above: Performed By: #### C BC ####[facility] Cpqujquekq7835 [place] [phone]. Emelina Navarro Platelet mean volume (Bld) [Entitic vol] 11.3 fL Normal 9.5-13.5 [facility] Comment on above: Performed By: #### C BC ####[facility] Vupolucgsv5247 [place] [phone]. Emelina Navarro PLT 119 103/ul Critically low 150-450 [facility] Comment on above: Performed By: #### C BC ####[facility] Ntmnrqaqrm5442 [place] [phone]. Emelina Navarro RBC 4.53 106/ul Critically low 4.70-6.10 [facility] Comment on above: Performed By: #### C BC ####[facility] Uzywbjafop4813 [place] [phone]. Emelina Navarro WBC 12.6 103/ul Critically high 4.0-11.0 [facility] Comment on above: Performed By: #### C BC ####[facility] Eaepvekmeq9722 [place] [phone] Navarro PROF 14(COMP METB)on 023 Albumin [Mass/Vol] 3.1 g/dL Critically low 3.4-5.0 [facility] Comment on above: Performed By: #### C MP ####[facility] Qufkbeukpe5435 [place] [address]Dr. Emelina Ramon Albumin/Globulin [Mass ratio] 1.0 {ratio} Normal [facility] Comment on above: Performed By: #### C MP ####[facility] Pprmuelksk2425 [place] [address]Dr. Emelina Ramon ALP [Catalytic activity/Vol] 114 U/L Normal 46-116 [facility] Comment on above: Performed By: #### C MP ####[facility] Mqbinmkvyo5[address] [place], [place] [address]Dr. Emelina Ramon ALT [Catalytic activity/Vol] 23 U/L Normal 16-63 [facility] Comment on above: Performed By: #### C MP ####[facility] Tdfxueyxmv746[address] [place], [place] [address]Dr. Emelina Navarro Anion gap [Moles/Vol] 13.5 mmol/L Normal [facility] Comment on above: Performed By: #### C MP ####[facility] Eazzmkcfey632[address] [place], [place] [address]Dr. Emelina Ramon AST [Catalytic activity/Vol] 24 U/L Normal 15-37 [facility] Comment on above: Performed By: #### C MP ####[facility] Lcrkcqiezy484[address] [place], [place] [address]Dr. Emelina Navarro Bilirubin [Mass/Vol] 1.0 mg/dL Normal 0.2-1.0 [facility] Comment on above: Performed By: #### C MP ####[facility] Eqcokykhsp204[address] [place], [place] [address]Dr. Emelina Navarro Calcium [Mass/Vol] 8.5 mg/dL Normal 8.5-10.1 [facility] Comment on above: Performed By: #### C MP ####[facility] Xlzebecyjz45[address] [place], [place] [address]Dr. Emelina Navarro Chloride [Moles/Vol] 102 mmol/L Normal 98-107 [facility] Comment on above: Performed By: #### C MP ####[facility] Ngzoiyshcy2490 [place] [phone]. Emelina Navarro CO2 [Moles/Vol] 28.2 mmol/L Normal 21.0-32.0 [facility] Comment on above: Performed By: #### C MP ####[facility] Hizcosqpph0349 [place] [phone]. Emelina Navarro Creatinine [Mass/Vol] 1.42 mg/dL Critically high 0.70-1.30 [facility] Comment on above: Performed By: #### C MP ####[facility] Nnpssrfaqg5335 [place] [phone]. Emelina Navarro EGFR-AF TOGOLESE 60 mL/min/1.73m2 Normal >=60 [facility] Comment on above: Performed By: #### C MP ####[facility] Ysytixziob4915 [place] [address]Dr. Emelina Navarro EGFR-NON AF TOGOLESE 50 mL/min/1.73m2 Critically low >=60 [facility] Comment on above: Performed By: #### C MP ####[facility] Euyttwhfdt7870 [place] [phone]. Emelina Navarro Globulin (S) [Mass/Vol] 3.1 g/dL Normal [facility] Comment on above: Performed By: #### C MP ####[facility] Hbsvoddarr6402 [place] [address]Dr. Emelina Navarro Glucose [Mass/Vol] 121 mg/dL Critically high 74-106 [facility] Comment on above: Performed By: #### C MP ####[facility] Pwhgrvkucj5626 [place] [phone]. Emelina Navarro Potassium [Moles/Vol] 3.7 mmol/L Normal 3.5-5.1 [facility] Comment on above: Performed By: #### C MP ####[facility] Wxhqrwfmvq5952 [place] [phone]. Emelina Navarro Protein [Mass/Vol] 6.2 g/dL Critically low 6.4-8.2 [facility] Comment on above: Performed By: #### C MP ####[facility] Tsooymflgo2185 [place] [address]Dr. Emelina Navarro Sodium [Moles/Vol] 140 mmol/L Normal 136-[address] [facility] Comment on above: Performed By: #### C MP ####[facility] Apyydpuctw95[address] [place], [place] [address]Dr. Emelina Ramon Urea nitrogen [Mass/Vol] 33.0 mg/dL Critically high 7.0-18.0 [facility] Comment on above: Performed By: #### C MP ####[facility] Ddcblbxfvi575[address] [place], [place] [address]Dr. Emelina Ramon Urea nitrogen/Creatinine [Mass ratio] 23.2 mg/mg Normal [facility] Comment on above: Performed By: #### C MP ####[facility] Rxsgbjgzns890248 [address] [place], [place] [address]Dr. Emelina Ramon BNPon 01-05-2023 Natriuretic peptide B (Bld) [Mass/Vol] 7350.0 pg/mL Critically high <=900.0 [facility] Comment on above: Performed By: #### B SERVICE RIG OPERATOR, BMP, HSTROPN ####[facility] Pfzuqjkigv394[address] [place], [place] [address]Dr. Emelina Ramon CBC AUTO DIFFon 01-05-2023 BASO # 0.0 103/ul Normal 0.0-0.1 [facility] Comment on above: Performed By: #### C BC ####[facility] Ibbukgvxug0[address] [place], [place] [address]Dr. Emelina Ramon Basophils/100 WBC (Bld) 0.3 % Normal 0.2-2.0 [facility] Comment on above: Performed By: #### C BC ####[facility] Yfcnwsprtm511[address] [place], [place] [address]Dr. Emelina Navarro EO # 0.3 103/ul Normal 0.0-0.7 [facility] Comment on above: Performed By: #### C BC ####[facility] Bvphdioqfm798[address] [place], [place] [address]Dr. Emelina Navarro Eosinophils/100 WBC (Bld) 1.9 % Normal 0.9-7.0 [facility] Comment on above: Performed By: #### C BC ####[facility] Qjotwbwlra2690 [place] [address]Dr. Emelina Navarro Erythrocyte distribution width (RBC) [Ratio] 17.7 % Critically high 11.0-15.0 [facility] Comment on above: Performed By: #### C BC ####[facility] Vwvtdpbqfc057[address] [place], [place] [address]Dr. Emelina Navarro Hematocrit (Bld) [Volume fraction] 42.9 % Normal 42.0-54.0 [facility] Comment on above: Performed By: #### C BC ####[facility] Rqrfdhjezb[address] [place], [place] [address]Dr. Emelina Navarro Hemoglobin (Bld) [Mass/Vol] 13.8 g/dL Critically low 14.0-18.0 [facility] Comment on above: Performed By: #### C BC ####[facility] Wbfglosmyi49[address] [place], [place] [address]Dr. Emelina Navarro IG # 0.07 10e3/ul Critically high 0.00-0.[address] [facility] Comment on above: Performed By: #### C BC ####[facility] Ixkawntcyr76[address] [place], [place] [address]Dr. Emelina Navarro IG % 0.4 % Normal 0.0-0.5 [facility] Comment on above: Performed By: #### C BC ####[facility] Sguihythoo492[address] [place], [place] [address]Dr. Emelina Navarro LYMPH # 1.8 103/ul Normal 1.2-3.8 [facility] Comment on above: Performed By: #### C BC ####[facility] Gssozcnerd797[address] [place], [place] [address]Dr. Emelina Navarro Lymphocytes/100 WBC (Bld) 11.6 % Critically low 20.5-60.0 [facility] Comment on above: Performed By: #### C BC ####[facility] Jgzkmfrpnj75[address] [place], [place] [address]Dr. Awildanitza Navarro MANUAL DIFF REQ NO Normal [facility] Comment on above: Performed By: #### C BC ####[facility] Otiedlydbu6200 [place] [address]Dr. Emelina Ramon MCH (RBC) [Entitic mass] 28.5 pg Normal 25.9-34.0 [facility] Comment on above: Performed By: #### C BC ####[facility] Jfigcebohs503[address] [place], [place] [address]Dr. Emelina Ramon MCHC (RBC) [Mass/Vol] 32.2 g/dL Normal 29.9-35.2 [facility] Comment on above: Performed By: #### C BC ####[facility] Pkvqlmylfo31[address] [place], [place] [address]Dr. Awildanitza Navarro MCV (RBC) [Entitic vol] 88.5 fL Normal 80.0-94.0 [facility] Comment on above: Performed By: #### C BC ####[facility] Uyevvkxyez[address] [place], [place] [address]Dr. Emelina Navarro MONO # 1.1 103/ul Critically high 0.3-0.8 [facility] Comment on above: Performed By: #### C BC ####[facility] Opwfakonxx30[address] [place], [place] [address]Dr. Emelina Navarro Monocytes/100 WBC (Bld) 6.9 % Normal 1.7-12.0 [facility] Comment on above: Performed By: #### C BC ####[facility] Wtpbfovbbp6[address] [place], [place] [address]Dr. Emelina Navarro NEUT # 12.4 103/ul Critically high 1.4-6.5 [facility] Comment on above: Performed By: #### C BC ####[facility] Vfsvvilabm701[address] [place], [place] [address]Dr. Emelina Navarro Neutrophils/100 WBC (Bld) 78.9 % Critically high 43.0-75.0 [facility] Comment on above: Performed By: #### C BC ####[facility] Gvhjqkpvnu3[address] [place], [place] [address]Dr. Emelina Navarro Platelet mean volume (Bld) [Entitic vol] 11.5 fL Normal 9.5-13.5 [facility] Comment on above: Performed By: #### C BC ####[facility] Ffytsqcepf8079 [place] [phone]. Emelina Navarro PLT 142 103/ul Critically low 150-450 [facility] Comment on above: Performed By: #### C BC ####[facility] Fvfyjttchs8034 [place] [phone]. Emelina Navarro RBC 4.85 106/ul Normal 4.70-6.10 [facility] Comment on above: Performed By: #### C BC ####[facility] Azgrebfkce4626 [place] [address]Dr. Emelina Navarro WBC 15.8 103/ul Critically high 4.0-11.0 [facility] Comment on above: Performed By: #### C BC ####[facility] Cieyzcjulw11[address] [place] [address]Dr. Emelina Navarro CULTURE BLOODon 01-05-2023 Microscopic examination of blood, culture Culture Observations: NO GROWTH AT 5 DAYS. Normal [facility] Comment on above: Performed By: #### B LDCX2 ####[facility] Tzqxxihgbg8260 [place] [address]Dr. Emelina Navarro Microscopic examination of blood, culture Culture Observations: NO GROWTH AT 5 DAYS. Normal [facility] Comment on above: Performed By: #### B LDCX1 ####[facility] Xsggqvspjg6834 [place] [address]Dr. Emelina Navarro Covid-19 PCR (CVDTB)on 12-20 SARS-CoV-2 (COVID-19) RNA RADHA+probe Ql (Unsp spec) Not detected Normal NOT DETECTED [facility] Comment on above: Result Comment: When [...] for this test is supported by the [place] of Health and Human Service's declaration that [...] be used). Performed By: #### C VDTBH ####[facility] Uojcnkfugi64[address] [place], [place] [address]Dr. Emelina Navarro DIGOXINon 01-05-2023 DIG 0.8 ng/mL Critically low 0.9-2.0 [facility] Comment on above: Performed By: #### D IG ####[facility] Zgvfcwsktc406[address] [place], [place] [address]Dr. Emelina Navarro PROF CHEM 8 (BAS METB)on Anion gap [Moles/Vol] 12.7 mmol/L Normal [facility] Comment on above: Performed By: #### B SERVICE RIG OPERATOR, BMP, HSTROPN ####[facility] Zllyxkvzyi0868 [place] [address]Dr. Emelina Navarro Calcium [Mass/Vol] 8.8 mg/dL Normal 8.5-10.1 [facility] Comment on above: Performed By: #### B SERVICE RIG OPERATOR, BMP, HSTROPN ####[facility] Efrzzyqzco[address] [place], [place] [address]Dr. Emelina Navarro Chloride [Moles/Vol] 99 mmol/L Normal 98-107 [facility] Comment on above: Performed By: #### B SERVICE RIG OPERATOR, BMP, HSTROPN ####[facility] Yrvjugdtbg6190 [place] [address]Dr. Emelina Navarro CO2 [Moles/Vol] 28.2 mmol/L Normal 21.0-32.0 [facility] Comment on above: Performed By: #### B SERVICE RIG OPERATOR, BMP, HSTROPN ####[facility] Dytdiepgos1431 [place] [address]Dr. Emelina Navarro Creatinine [Mass/Vol] 1.64 mg/dL Critically high 0.70-1.30 [facility] Comment on above: Performed By: #### B SERVICE RIG OPERATOR, BMP, HSTROPN ####[facility] Aphlzblqux1339 [place] [address]Dr. Emelina Navarro EGFR-AF TOGOLESE 51 mL/min/1.73m2 Critically low >=60 [facility] Comment on above: Performed By: #### B SERVICE RIG OPERATOR, BMP, HSTROPN ####[facility] Syvdhaeglt7943 [place] [address]Dr. Emelina Navarro EGFR-NON AF TOGOLESE 42 mL/min/1.73m2 Critically low >=60 [facility] Comment on above: Performed By: #### B SERVICE RIG OPERATOR, BMP, HSTROPN ####[facility] Jsfakugwha[address] [place], [place] [address]Dr. Emelina Navarro Glucose [Mass/Vol] 203 mg/dL Critically high 74-106 [facility] Comment on above: Performed By: #### B SERVICE RIG OPERATOR, BMP, HSTROPN ####[facility] Pyiieuiogl5131 [place] [address]Dr. Emelina Navarro Potassium [Moles/Vol] 3.9 mmol/L Normal 3.5-5.1 [facility] Comment on above: Performed By: #### B SERVICE RIG OPERATOR, BMP, HSTROPN ####[facility] Bcpadfydot1388 [place] [address]Dr. Emelina Navarro Sodium [Moles/Vol] 136 mmol/L Normal 136-145 [facility] Comment on above: Performed By: #### B SERVICE RIG OPERATOR, BMP, HSTROPN ####[facility] Wmcnegbcrg17[address] [place], [place] [address]Dr. Emelina Navarro Urea nitrogen [Mass/Vol] 32.0 mg/dL Critically high 7.0-18.0 [facility] Comment on above: Performed By: #### B SERVICE RIG OPERATOR, BMP, HSTROPN ####[facility] Dsrtwyzwbr6081 [place] [address]Dr. Emelina Navarro Urea nitrogen/Creatinine [Mass ratio] 19.5 mg/mg Normal [facility] Comment on above: Performed By: #### B SERVICE RIG OPERATOR, BMP, HSTROPN ####[facility] Qtqifplifv2837 [place] [address]Dr. Emelina Navarro PROTIMEon 01-05-2023 INR Coag (PPP) [Relative time] 2.53 {INR} Normal [facility] Comment on above: Performed By: #### P T, PTT ####[facility] Gikyaacice3797 [place] [address]Dr. Emelina Navarro INR GUIDELINES SEE BELOW Normal [facility] Comment on above: Result Comment: WENDY RED INR: 2.0 - 3.0 CONDITIONS NOT LISTED BELOW 2.5 - 3.5 FOR PROSTHETIC HEART VALVE REPLACEMENT 2.5 - 3.5 RECURRENT THROMBOSIS Performed By: #### P T, PTT ####[facility] Eibqukqrzy6082 [place] [address]Dr. Emelina Navarro PT Coag (PPP) [Time] 25.4 s Critically high 9.0-11.6 [facility] Comment on above: Performed By: #### P T, PTT ####[facility] Yoxwckqkec2081 [place] [address]Dr. Emelina Navarro PTTon 01-05-2023 aPTT Coag (Bld) [Time] 37.7 s Critically high 22.3-36.2 [facility] Comment on above: Performed By: #### P T, PTT ####[facility] Lrgyhbmssm[address] [place], [place] [address]Dr. Emelina Navarro TROPONIN, HIGH SENSITIVITYon 01-05-2023 HSTROP 52.4 pg/mL Normal 4.0-76.1 [facility] Comment on above: Result Comment: CUT- OFF POINTS HAVE BEEN ESTABLISHED BASED ON THE FOURTH UNIVERSAL DEFINITIONS OF MYOCARDIALINFARCTION. THE UPPER REFERENCE LIMIT (URL) OF TROPONIN, DEFINED THE 99TH PERCENTILE OFcTnI DISTRIBUTION IN A REFERENCE POPULATION, HAS BEEN CONFIRMED THE DECISION THRESHOLDFOR OR DIAGNOSIS. Performed By: #### B SERVICE RIG OPERATOR, BMP, HSTROPN ####[facility] Xzdvuchrvo4165 [place] [address]Dr. Emelina Navarro XR CHEST 1 Von 01-05-2023 XR CHEST 1 V Normal [facility] BNPon 01-02-2023 Natriuretic peptide B (Bld) [Mass/Vol] 5653.0 pg/mL Critically high <=900.0 [facility] Comment on above: Performed By: #### B SERVICE RIG OPERATOR, BMP ####[facility] Cvhxlqwqtu[address] [place], [place] [address]Dr. Emelina Ramon CBC AUTO DIFFon 01-02-2023 BASO # 0.0 103/ul Normal 0.0-0.1 [facility] Comment on above: Performed By: #### C BC ####[facility] Twmfadbxzn9[address] [place], [place] [address]Dr. Awildanitza Navarro Basophils/100 WBC (Bld) 0.2 % Normal 0.2-2.0 [facility] Comment on above: Performed By: #### C BC ####[facility] Aansblxtny09[address] [place], [place] [address]Dr. Emelina Ramon EO # 0.3 103/ul Normal 0.0-0.7 [facility] Comment on above: Performed By: #### C BC ####[facility] Jsjjdcgjei[address] [place], [place] [address]Dr. Emelina Ramon Eosinophils/100 WBC (Bld) 2.1 % Normal 0.9-7.0 [facility] Comment on above: Performed By: #### C BC ####[facility] Vpgbyrlndn[address] [place], [place] [address]Dr. Emelina Navarro Erythrocyte distribution width (RBC) [Ratio] 17.9 % Critically high 11.0-15.0 [facility] Comment on above: Performed By: #### C BC ####[facility] Wepcqfckdz194[address] [place], [place] [address]Dr. Emelina Ramon Hematocrit (Bld) [Volume fraction] 42.1 % Normal 42.0-54.0 [facility] Comment on above: Performed By: #### C BC ####[facility] Ljitdaromj1975 [place] [phone]. Emelina Navarro Hemoglobin (Bld) [Mass/Vol] 13.8 g/dL Critically low 14.0-18.0 [facility] Comment on above: Performed By: #### C BC ####[facility] Grkpiwnppa2173 [place] [phone]. Emelina Navarro IG # 0.06 10e3/ul Critically high 0.00-0.[address] [facility] Comment on above: Performed By: #### C BC ####[facility] Kfqszizizn9758 [place] [address]Dr. Emelina Navarro IG % 0.5 % Normal 0.0-0.5 [facility] Comment on above: Performed By: #### C BC ####[facility] Dzgftelkxf9006 [place] [address]Dr. Emelina Navarro LYMPH # 1.7 103/ul Normal 1.2-3.8 [facility] Comment on above: Performed By: #### C BC ####[facility] Ydxzjmtvpc8315 [place] [address]Dr. Emelina Navarro Lymphocytes/100 WBC (Bld) 13.1 % Critically low 20.5-60.0 [facility] Comment on above: Performed By: #### C BC ####[facility] Taytkprqhu8180 [place] [address]Dr. Emelina Navarro MANUAL DIFF REQ NO Normal [facility] Comment on above: Performed By: #### C BC ####[facility] [address]jwduzdeew[address] [place], [place] [address]Dr. Emelina Navarro MCH (RBC) [Entitic mass] 28.9 pg Normal 25.9-34.0 [facility] Comment on above: Performed By: #### C BC ####[facility] Oifxxltpki[address] [place], [place] [address]Dr. Emelina Navarro MCHC (RBC) [Mass/Vol] 32.8 g/dL Normal 29.9-35.2 [facility] Comment on above: Performed By: #### C BC ####[facility] Xxuchmntiv7343 [place] [phone]. Emelina Navarro MCV (RBC) [Entitic vol] 88.3 fL Normal 80.0-94.0 [facility] Comment on above: Performed By: #### C BC ####[facility] Szixngpwso6683 [place] [phone]. Emelina Navarro MONO # 0.7 103/ul Normal 0.3-0.8 [facility] Comment on above: Performed By: #### C BC ####[facility] Pgcayjhacc1604 [place] [phone]. Emelina Navarro Monocytes/100 WBC (Bld) 5.3 % Normal 1.7-12.0 [facility] Comment on above: Performed By: #### C BC ####[facility] Uxuycwtlvh1606 [place] [phone]. Emelina Navarro NEUT # 10.1 103/ul Critically high 1.4-6.5 [facility] Comment on above: Performed By: #### C BC ####[facility] Gixzxwbdcn2470 [place] [phone]. Emelina Navarro Neutrophils/100 WBC (Bld) 78.8 % Critically high 43.0-75.0 [facility] Comment on above: Performed By: #### C BC ####[facility] Tipubmvrii0389 [place] [phone]. Emelina Navarro Platelet mean volume (Bld) [Entitic vol] 10.8 fL Normal 9.5-13.5 [facility] Comment on above: Performed By: #### C BC ####[facility] Hzlhbgiabp8223 [place] [phone]. Emelian Navarro PLT 143 103/ul Critically low 150-450 [facility] Comment on above: Performed By: #### C BC ####[facility] Jmucejroyv9586 [place] [phone]. Emelina Navarro RBC 4.77 106/ul Normal 4.70-6.10 [facility] Comment on above: Performed By: #### C BC ####[facility] Nqcrzuvtfq1358 [place] [phone]. Emelina Navarro WBC 12.8 103/ul Critically high 4.0-11.0 [facility] Comment on above: Performed By: #### C BC ####[facility] Gkbicosiui2261 [place] [address]Dr. Emelina Navarro PROF CHEM 8 (BAS METB)on Anion gap [Moles/Vol] 12.2 mmol/L Normal [facility] Comment on above: Performed By: #### B SERVICE RIG OPERATOR, BMP ####[facility] Xzhiggzbxd8753 [place] [address]Dr. Emelina Navarro Calcium [Mass/Vol] 8.6 mg/dL Normal 8.5-10.1 [facility] Comment on above: Performed By: #### B SERVICE RIG OPERATOR, BMP ####[facility] Shrbeifsnz[address] [place], [place] [address]Dr. Emelina Navarro Chloride [Moles/Vol] 102 mmol/L Normal 98-107 [facility] Comment on above: Performed By: #### B SERVICE RIG OPERATOR, BMP ####[facility] Twfsjxlagy3052 [place] [address]Dr. Emelina Navarro CO2 [Moles/Vol] 26.4 mmol/L Normal 21.0-32.0 [facility] Comment on above: Performed By: #### B SERVICE RIG OPERATOR, BMP ####[facility] Bodliqtqlm[address] [place], [place] [address]Dr. Emelina Navarro Creatinine [Mass/Vol] 1.56 mg/dL Critically high 0.70-1.30 [facility] Comment on above: Performed By: #### B SERVICE RIG OPERATOR, BMP ####[facility] Midsczwege9423 [place] [phone]. Emelina Navarro EGFR-AF TOGOLESE 54 mL/min/1.73m2 Critically low >=60 [facility] Comment on above: Performed By: #### B SERVICE RIG OPERATOR, BMP ####[facility] Qltzhfacua[address] [place], [place] [address]Dr. Emelina Navarro EGFR-NON AF TOGOLESE 44 mL/min/1.73m2 Critically low >=60 [facility] Comment on above: Performed By: #### B SERVICE RIG OPERATOR, BMP ####[facility] Xkmpqlfusr2552 [place] [address]Dr. Awildanitza Navarro Glucose [Mass/Vol] 211 mg/dL Critically high 74-106 [facility] Comment on above: Performed By: #### B SERVICE RIG OPERATOR, BMP ####[facility] Fjebcakmxn8294 [place] [phone]. Emelina Navarro Potassium [Moles/Vol] 3.6 mmol/L Normal 3.5-5.1 [facility] Comment on above: Performed By: #### B SERVICE RIG OPERATOR, BMP ####[facility] Qrvcbzqrni2821 [place] [address]Dr. Emelina Navarro Sodium [Moles/Vol] 137 mmol/L Normal 136-145 [facility] Comment on above: Performed By: #### B SERVICE RIG OPERATOR, BMP ####[facility] Iwwfpivvbd[address] [place], [place] [address]Dr. Emelina Navarro Urea nitrogen [Mass/Vol] 42.0 mg/dL Critically high 7.0-18.0 [facility] Comment on above: Performed By: #### B SERVICE RIG OPERATOR, BMP ####[facility] [address]ummft[address] [place], [place] [address]Dr. Emelina Navarro Urea nitrogen/Creatinine [Mass ratio] 26.9 mg/mg Normal [facility] Comment on above: Performed By: #### B SERVICE RIG OPERATOR, BMP ####[facility] Aesnowlwux[address] [place], [place] [address]Dr. Awildanitza Ramon Anion gap [Moles/Vol] 12.3 mmol/L Normal [facility] Comment on above: Performed By: #### B MP ####[facility] Kpnpqxbmyp[address] [place], [place] [address]Dr. Emelina Navarro Calcium [Mass/Vol] 8.4 mg/dL Critically low 8.5-10.1 [facility] Comment on above: Performed By: #### B MP ####[facility] Entppembms[address] [place], [place] [address]Dr. Emelina Navarro Chloride [Moles/Vol] 101 mmol/L Normal 98-107 [facility] Comment on above: Performed By: #### B MP ####[facility] [address] [place] [address]Dr. Emelina Navarro CO2 [Moles/Vol] 27.4 mmol/L Normal 21.0-32.0 [facility] Comment on above: Performed By: #### B MP ####[facility] Ftqcnhnywv[address] [place], [place] [address]Dr. Emelina Navarro Creatinine [Mass/Vol] 1.54 mg/dL Critically high 0.70-1.30 [facility] Comment on above: Performed By: #### B MP ####[facility] Mqostlteeu[address] [place], [place] [address]Dr. Emelina Navarro EGFR-AF TOGOLESE 55 mL/min/1.73m2 Critically low >=60 [facility] Comment on above: Performed By: #### B MP ####[facility] Voogtmkydg[address] [place], [place] [address]Dr. Emelina Navarro EGFR-NON AF TOGOLESE 45 mL/min/1.73m2 Critically low >=60 [facility] Comment on above: Performed By: #### B MP ####[facility] Dczfchbuvo[address] [place], [place] [address]Dr. Emelina Navarro Glucose [Mass/Vol] 115 mg/dL Critically high 74-106 [facility] Comment on above: Performed By: #### B MP ####[facility] Jxemgzrfgq[address] [place], [place] [address]Dr. Emelina Navarro Potassium [Moles/Vol] 3.7 mmol/L Normal 3.5-5.1 [facility] Comment on above: Performed By: #### B MP ####[facility] Nbbdqrairc7[address] [place], [place] [address]Dr. Emelina Navarro Sodium [Moles/Vol] 137 mmol/L Normal 136-145 [facility] Comment on above: Performed By: #### B MP ####[facility] Utvdwlmreq[address] [place], [place] [address]Dr. Emelina Navarro Urea nitrogen [Mass/Vol] 40.0 mg/dL Critically high 7.0-18.0 [facility] Comment on above: Performed By: #### B MP ####[facility] Flxlylommc[address] [place], [place] [address]Dr. Emelina Navarro Urea nitrogen/Creatinine [Mass ratio] 26.0 mg/mg Normal [facility] Comment on above: Performed By: #### B MP ####[facility] Vqafhumnrq[address]37[address] [place], [place] [address]Dr. Emelina Navarro XR CHEST 1 Von 01-02-2023 XR CHEST 1 V Normal [facility] BNPon 12-26-2022 Natriuretic peptide B (Bld) [Mass/Vol] 9102.0 pg/mL Critically high <=900.0 [facility] Comment on above: Performed By: #### B SERVICE RIG OPERATOR ####[facility] Ihzqxfethj[address] [place], [place] [address]Dr. Emelina Navarro PROF CHEM 8 (BAS METB)on Anion gap [Moles/Vol] 14.4 mmol/L Normal [facility] Comment on above: Performed By: #### B MP ####[facility] Ushhscisms[address] [place], [place] [address]Dr. Emelina Navarro Calcium [Mass/Vol] 8.6 mg/dL Normal 8.5-10.1 [facility] Comment on above: Performed By: #### B MP ####[facility] Mmbhusupgj42[address] [place], [place] [address]Dr. Emelina Navarro Chloride [Moles/Vol] 101 mmol/L Normal 98-107 [facility] Comment on above: Performed By: #### B MP ####[facility] Cwgbezzpjo[address] [place], [place] [address]Dr. Emelina Navarro CO2 [Moles/Vol] 27.2 mmol/L Normal 21.0-32.0 [facility] Comment on above: Performed By: #### B MP ####[facility] Grzppqu[address]o64[address] [place], [place] [address]Dr. Emelina Navarro Creatinine [Mass/Vol] 1.69 mg/dL Critically high 0.70-1.30 [facility] Comment on above: Performed By: #### B MP ####[facility] [address] [place] [phone]. Awildanitza Ramon EGFR-AF TOGOLESE 49 mL/min/1.73m2 Critically low >=60 [facility] Comment on above: Performed By: #### B MP ####[facility] [address]dn[address] [place] [phone]. Awildanitza Ramon EGFR-NON AF TOGOLESE 41 mL/min/1.73m2 Critically low >=60 [facility] Comment on above: Performed By: #### B MP ####[facility] Sx[address]rungyk[address] [place] [phone]. Emelina Navarro Glucose [Mass/Vol] 163 mg/dL Critically high 74-106 [facility] Comment on above: Performed By: #### B MP ####[facility] [address]fr[address]wc[address] [place] [address]Dr. Emelina Navarro Potassium [Moles/Vol] 3.6 mmol/L Normal 3.5-5.1 [facility] Comment on above: Performed By: #### B MP ####[facility] [address] [place] [address]Dr. Emelina Navarro Sodium [Moles/Vol] 139 mmol/L Normal 136-145 [facility] Comment on above: Performed By: #### B MP ####[facility] Lad[address]clxhu[address] [place] [phone]. Emelina Navarro Urea nitrogen [Mass/Vol] 36.0 mg/dL Critically high 7.0-18.0 [facility] Comment on above: Performed By: #### B MP ####[facility] Klamdboclt[address] [place] [phone]. Emelina Navarro Urea nitrogen/Creatinine [Mass ratio] 21.3 mg/mg Normal [facility] Comment on above: Performed By: #### B MP ####[facility] [address] [place] [address]Dr. Emelina Navarro Albumin [Mass/volume] in Ser um or PlasmaOrdered By: Ethan Cummings on 12-02-2022 Albumin [Mass/Vol] 3.9 g/dL 3.2-5.5 [facility] Basophils Auto (Bld) [#/Vol] Ordered By: Ethan Cummings on 12-02-2022 Basophils (Bld) [#/Vol] 0.1 10*3/uL 0.0-0.[address] [facility] Basophils/100 WBC Auto (Bld) Ordered By: Ethan Cummings on 12-02-2022 Basophils/100 WBC (Bld) 0.7 % . [facility] CT biopsyOrdered By: Ethan Cummings on 12-02-2022 Transferrin [Mass/Vol] 240 mg/dL 180-[address] [facility] Creatinine and Glomerular fi ltration rate.predicted panel (S/P/Bld)Ordered By: Ethan Cummings on 12-02-2022 Creatinine [Mass/Vol] 1.58 mg/dL 0.64-1.27 [facility] Eosinophils Auto (Bld) [#/Vo l]Ordered By: Ethan Cummings on 12-02-2022 Eosinophils (Bld) [#/Vol] 0.4 10*3/uL 0.0-0.[address] [facility] Eosinophils/100 WBC Auto (Bl d)Ordered By: Ethan Cummings on 12-02-2022 Eosinophils/100 WBC (Bld) 3.5 % . [facility] Erythrocyte distribution wid th Auto (RBC) [Ratio]Ordered By: Ethan Cummigns on 12-02-2022 Erythrocyte distribution width (RBC) [Ratio] 19.6 % 12.0-14.[address] [facility] Estimated glomerular filtrat ion rate (GFR) non- AmericanOrdered By: Ethan Cummings on 12-02-2022 GFR/1.73 sq M.predicted among non-blacks MDRD (S/P/Bld) [Vol rate/Area] 44 mL/Min [facility] Ferritin [Mass/volume] in Se rum or PlasmaOrdered By: Ethan Cummings on 12-02-2022 Ferritin [Mass/Vol] 85.7 ng/mL 23.9-336.2 [facility] Folate [Mass/volume] in Seru m or PlasmaOrdered By: Ethan Cummings on 12-02-2022 Folate [Mass/Vol] ng/mL >5.9 [facility] Comment on above: Folate reference ran ge: >5.9 ng/mlThe WHO technical consultation on folate and vitamin i74fwivcczfauys has determined that folate concentrations lessthan 4 ng/ml are considered deficient. Globulin Calc (S) [Mass/Vol] Ordered By: Ethan Cummings on 12-02-2022 Globulin (S) [Mass/Vol] 3.7 g/dL [facility] Hematocrit Auto (Bld) [Volum e fraction]Ordered By: Ethan Cummings on 12-02-2022 Hematocrit (Bld) [Volume fraction] 47.4 % 38.8-50.[address] [facility] Hemoglobin [Mass/volume] in BloodOrdered By: Ethan Cummings on 12-02-2022 Hemoglobin (Bld) [Mass/Vol] 15.3 g/dL 13.0-17.[address] [facility] Iron [Mass/volume] in Serum or PlasmaOrdered By: Ethan Cummings on 12-02-2022 Iron [Mass/Vol] 96 ug/dL 40-[address] [facility] Iron binding capacity [Mass/ volume] in Serum or PlasmaOrdered By: Ethan Cummings on 12-02-2022 Iron binding capacity [Mass/Vol] 336 ug/dL 255-[address] [facility] Iron saturation [Mass Fracti on] in Serum or PlasmaOrdered By: Ethan Cummings on 12-02-2022 Iron saturation [Mass fraction] 28.6 % 20-[address] [facility] Laboratory - Chemistry and C hemistry - challengeOrdered By: Ethan Cummings on 12-02-2022 Cobalamin (Vitamin B12) [Mass/Vol] 1521 pg/mL 180-[address] [facility] Leukocytes [#/volume] correc morris for nucleated erythrocytes in Blood by Automated counOrdered By: Ethan Cummings on 12-02-2022 WBC corrected for nucl RBC Auto (Bld) [#/Vol] 11.8 10*3/uL 4.1-10.[address] [facility] Lymphocytes Auto (Bld) [#/Vo l]Ordered By: Ethan Cummings on 12-02-2022 Lymphocytes (Bld) [#/Vol] 2.4 10*3/uL 1.00-4.[address] [facility] Lymphocytes/100 WBC Auto (Bl d)Ordered By: Ethan Cummings on 12-02-2022 Lymphocytes/100 WBC (Bld) 20.5 % . [facility] MCH Auto (RBC) [Entitic mass ]Ordered By: Ethan Cummings on 12-02-2022 MCH (RBC) [Entitic mass] 28.3 pg 27.5-35.[address] [facility] MCHC Auto (RBC) [Mass/Vol]Or dered By: Ethan Cummings on 12-02-2022 MCHC (RBC) [Mass/Vol] 32.3 g/dL 32.5-35.6 [facility] MCV Auto (RBC) [Entitic vol] Ordered By: Ethan Cummings on 12-02-2022 MCV (RBC) [Entitic vol] 87.5 fL 83.5-[address] [facility] Monocytes Auto (Bld) [#/Vol] Ordered By: Ethan Cummings on 12-02-2022 Monocytes (Bld) [#/Vol] 1.0 10*3/uL 0.0-0.[address] [facility] Monocytes/100 WBC Auto (Bld) Ordered By: Ethan Cummings on 12-02-2022 Monocytes/100 WBC (Bld) 8.2 % . [facility] Neutrophils Auto (Bld) [#/Vo l]Ordered By: Ethan Cummings on 12-02-2022 Neutrophils (Bld) [#/Vol] 7.9 10*3/uL 1.8-7.[address] [facility] Neutrophils/100 WBC Auto (Bl d)Ordered By: Ethan Cummings on 12-02-2022 Neutrophils/100 WBC (Bld) 67.1 % . [facility] No Panel InformationOrdered By: Ethan Cummings on 12-02-2022 Estimated GFR () 53 mL/Min [facility] Comment on above: GFR estimated refere nce range: According to KDOQI guidelines, <60 ml/min/1.73m2 is sufficient to diagnose a patient with chronic kidney disease. Pharmacy Creatinine Clearance (Chem 53.[address] [facility] Nucleated erythrocytes [Pres ence] in Blood by Automated countOrdered By: Ethan Cummings on 12-02-2022 Nucleated RBC Auto Ql (Bld) 0.1 /100{WBC} 0-0.[address] [facility] Platelet mean volume Auto (B ld) [Entitic vol]Ordered By: Ethan Cummings on 12-02-2022 Platelet mean volume (Bld) [Entitic vol] 8.5 fL 6.6-10.[address] [facility] Platelets Auto (Bld) [#/Vol] Ordered By: Ethan Cummings on 12-02-2022 Platelets (Bld) [#/Vol] 214 10*3/uL 150-[address] [facility] Protein [Mass/volume] in Ser um or PlasmaOrdered By: Ethan Cummings on 12-02-2022 Protein [Mass/Vol] 7.6 g/dL 6.1-7.9 [facility] RBC Auto (Bld) [#/Vol]Ordere d By: Ethan Cummings on 12-02-2022 RBC (Bld) [#/Vol] 5.41 10*6/uL 3.90-5.60 [facility] Serum or plasma alanine valle otransferase measurement without P-5'-P (enzymatic activiOrdered By: Ethan Cummings on 12-02-2022 ALT No additional P-5'-P [Catalytic activity/Vol] 19 U/L 10-[address] [facility] Serum or plasma albumin/glob ulin mass ratioOrdered By: Ethan Cummings on 12-02-2022 Albumin/Globulin [Mass ratio] 1.1 {ratio} [facility] Serum or plasma alkaline tosin sphatase measurement (enzymatic activity/volume)Ordered By: Ethan Cummings on 12-02-2022 ALP [Catalytic activity/Vol] 101 U/L 32-[address] [facility] Serum or plasma anion gap de terminationOrdered By: Ethan Cummings on 12-02-2022 Anion gap [Moles/Vol] 13.2 mmol/L 6.0-15.0 [facility] Serum or plasma aspartate am inotransferase measurement (enzymatic activity/volume)Ordered By: Ethan Cummings on 12-02-2022 AST [Catalytic activity/Vol] 32 U/L 10-[address] [facility] Serum or plasma calcium mike urement (mass/volume)Ordered By: Ethan Cummings on 12-02-2022 Calcium [Mass/Vol] 9.5 mg/dL 8.2-10.2 [facility] Serum or plasma chloride arash surement (moles/volume)Ordered By: Ethan Cummings on 12-02-2022 Chloride [Moles/Vol] 101 mmol/L 95-114 [facility] Serum or plasma glucose mike urement (mass/volume)Ordered By: Ethan Cummings on 12-02-2022 Glucose [Mass/Vol] 150 mg/dL 70-100 [facility] Comment on above: ADA recommended refe rence rangeRandom Glucose Reference Range is dependent on time and content of last meal. Glucose of more than 200 mg/dL in a nonstressed, ambulatory subject supports the diagnosis of Diabetes Mellitus. Serum or plasma potassium me asurement (moles/volume)Ordered By: Ethan Cummings on 12-02-2022 Potassium [Moles/Vol] 4.3 mmol/L 3.5-5.1 [facility] Serum or plasma sodium measu rement (moles/volume)Ordered By: Ethan Cummings on 12-02-2022 Sodium [Moles/Vol] 140 mmol/L 136-146 [facility] Serum or plasma total biliru bin measurement (mass/volume)Ordered By: Ethan Cummings on 12-02-2022 Bilirubin [Mass/Vol] 1.5 mg/dL 0.3-1.2 [facility] Comment on above: Samples from patient s who have taken Naproxen have shown spurious elevation in Total Bilirubin levels. A metabolite of Naproxen, O-desmethylnaproxen, has been shown to interfere with the Lazaro method for measuring Total Bilirubin. Serum or plasma total carbon dioxide measurement (moles/volume)Ordered By: Ethan Cummings on 12-02-2022 CO2 [Moles/Vol] 30.1 mmol/L 22.0-30.0 [facility] Serum or plasma urea nitroge n measurement (mass/volume)Ordered By: Ethan Cummings on 12-02-2022 Urea nitrogen [Mass/Vol] 22 mg/dL 08-[address] [facility] WBC Auto (Bld) [#/Vol]Ordere d By: Ethan Cummings on 12-02-2022 WBC (Bld) [#/Vol] 11.8 10*3/uL 4.1-10.5 [facility] PROF CHEM 8 (BAS METB)on Anion gap [Moles/Vol] 12.6 mmol/L Normal [facility] Comment on above: Performed By: #### B MP ####[facility] [address] [place] [address]Dr. Emelina Navarro Calcium [Mass/Vol] 9.0 mg/dL Normal 8.5-10.1 [facility] Comment on above: Performed By: #### B MP ####[facility] [address]zx[address] [place] [address]Dr. Emelina Navarro Chloride [Moles/Vol] 99 mmol/L Normal 98-107 [facility] Comment on above: Performed By: #### B MP ####[facility] [address] [place] [address]Dr. Emelina Navarro CO2 [Moles/Vol] 33.2 mmol/L Critically high 21.0-32.0 [facility] Comment on above: Performed By: #### B MP ####[facility] [address] [place] [address]Dr. Emelina Navarro Creatinine [Mass/Vol] 1.75 mg/dL Critically high 0.70-1.30 [facility] Comment on above: Performed By: #### B MP ####[facility] [address] [place] [address]Dr. Emelina Navarro EGFR-AF TOGOLESE 47 mL/min/1.73m2 Critically low >=60 [facility] Comment on above: Performed By: #### B MP ####[facility] [address]wstmbgfy[address] [place] [phone]. Emelina Navarro EGFR-NON AF TOGOLESE 39 mL/min/1.73m2 Critically low >=60 [facility] Comment on above: Performed By: #### B MP ####[facility] Umytxkabzg[address] [place] [phone]. Emelina Navarro Glucose [Mass/Vol] 132 mg/dL Critically high 74-106 [facility] Comment on above: Performed By: #### B MP ####[facility] [address]zh[address]tkz[address] [place] [phone]. Emelina Navarro Potassium [Moles/Vol] 3.8 mmol/L Normal 3.5-5.1 [facility] Comment on above: Performed By: #### B MP ####[facility] E[address]fuwmkeb4[address] [place] [phone]. Emelina Navarro Sodium [Moles/Vol] 141 mmol/L Normal 136-145 [facility] Comment on above: Performed By: #### B MP ####[facility] Dyzjlcodqk[address] [place] [phone]. Emelina Navarro Urea nitrogen [Mass/Vol] 22.0 mg/dL Critically high 7.0-18.0 [facility] Comment on above: Performed By: #### B MP ####[facility] Abqsrywuvv53[address] [place] [phone]. Emelina Navarro Urea nitrogen/Creatinine [Mass ratio] 12.6 mg/mg Normal [facility] Comment on above: Performed By: #### B MP ####[facility] Ojlpygmgzh[address] [place] [phone]. Awildanitza Ramon A1C HEMOGLOBINon 11-07-2022 HbA1c (Bld) [Mass fraction] 7.4 % [employer] Other Glucose - FINGER STICKon Glucose [Mass/Vol] 109 mg/dL [employer] Other HbA1c (Bld) [Mass fraction]o n 11-07-2022 A1C HEMOGLOBIN IPWireless [facility] Special[facility] HospitalAmulet Pharmaceuticals Other PROF CHEM 8 (BAS METB)on Anion gap [Moles/Vol] 12.2 mmol/L Normal [facility] Comment on above: Performed By: #### B MP ####[facility] Flpirgkjqr9[address] [place] [phone]. Emelina Navarro Calcium [Mass/Vol] 8.7 mg/dL Normal 8.5-10.1 [facility] Comment on above: Performed By: #### B MP ####[facility] [address]so[address]ks[address] [place] [address]Dr. Emelina Navarro Chloride [Moles/Vol] 101 mmol/L Normal 98-107 [facility] Comment on above: Performed By: #### B MP ####[facility] Uiasnlkgco[address] [place] [address]Dr. Emelina Navarro CO2 [Moles/Vol] 29.9 mmol/L Normal 21.0-32.0 [facility] Comment on above: Performed By: #### B MP ####[facility] Cwkiavujss[address] [place] [address]Dr. Emelina Navarro Creatinine [Mass/Vol] 1.78 mg/dL Critically high 0.70-1.30 [facility] Comment on above: Performed By: #### B MP ####[facility] Aqoqcuiwvo[address] [place] [address]Dr. Emelina Ramon EGFR-AF TOGOLESE 46 mL/min/1.73m2 Critically low >=60 [facility] Comment on above: Performed By: #### B MP ####[facility] Nvqlmxjmkt4477 [place] [phone]. Emelina Navarro EGFR-NON AF TOGOLESE 38 mL/min/1.73m2 Critically low >=60 [facility] Comment on above: Performed By: #### B MP ####[facility] Dtbvwyifkw35[address] [place] [address]Dr. Emelina Navaror Glucose [Mass/Vol] 127 mg/dL Critically high 74-106 [facility] Comment on above: Performed By: #### B MP ####[facility] Dzhyqzasyr450[address] [place] [address]Dr. Emelina Ramon Potassium [Moles/Vol] 4.1 mmol/L Normal 3.5-5.1 [facility] Comment on above: Performed By: #### B MP ####[facility] Nnhxcnxchm7[address] [place] [address]Dr. Emelina Ramon Sodium [Moles/Vol] 139 mmol/L Normal 136-145 [facility] Comment on above: Performed By: #### B MP ####[facility] [address]ykpakgnzg[address] [place], [place] [address]Dr. Awildanitza Ramon Urea nitrogen [Mass/Vol] 39.0 mg/dL Critically high 7.0-18.0 [facility] Comment on above: Performed By: #### B MP ####[facility] Ybdoqjggja[address] [place], [place] [address]Dr. Emelina Navarro Urea nitrogen/Creatinine [Mass ratio] 21.9 mg/mg Normal [facility] Comment on above: Performed By: #### B MP ####[facility] Xqwkqefmzj[address] [place], [place] [address]Dr. Emelina Ramon BNPon 10-03-2022 Natriuretic peptide B (Bld) [Mass/Vol] 7092.0 pg/mL Critically high <=900.0 [facility] Comment on above: Performed By: #### H STROPN, BNP, CMP ####[facility] [address]jejiym[address] [place], [place] [address]Dr. Awildanitza Ramon CBC AUTO DIFFon 10-03-2022 BASO # 0.0 103/ul Normal 0.0-0.1 [facility] Comment on above: Performed By: #### C BC ####[facility] Yxyp[address] [place], [place] [address]Dr. Emelina Navarro Basophils/100 WBC (Bld) 0.3 % Normal 0.2-2.0 [facility] Comment on above: Performed By: #### C BC ####[facility] Nocwtnecqq[address] [place], [place] [address]Dr. Emelina Navarro EO # 0.3 103/ul Normal 0.0-0.7 [facility] Comment on above: Performed By: #### C BC ####[facility] Atkzdefjya[address] [place] [address]Dr. Emelina Navarro Eosinophils/100 WBC (Bld) 2.5 % Normal 0.9-7.0 [facility] Comment on above: Performed By: #### C BC ####[facility] Yghjwmqxqt1476 [place] [address]Dr. Emelina Ramon Erythrocyte distribution width (RBC) [Ratio] 16.1 % Critically high 11.0-15.0 [facility] Comment on above: Performed By: #### C BC ####[facility] Jeuivmnpft[address] [place], [place] [address]Dr. Awildanitza Navarro Hematocrit (Bld) [Volume fraction] 40.4 % Critically low 42.0-54.0 [facility] Comment on above: Performed By: #### C BC ####[facility] Qnqhuzxgfr[address] [place], [place] [address]Dr. Emelina Navarro Hemoglobin (Bld) [Mass/Vol] 12.9 g/dL Critically low 14.0-18.0 [facility] Comment on above: Performed By: #### C BC ####[facility] Xold[address]rdnc[address] [place], [place] [address]Dr. Awildanitza Navarro IG # 0.05 10e3/ul Critically high 0.00-0.[address] [facility] Comment on above: Performed By: #### C BC ####[facility] Otgsynlnxa9[address] [place], [place] [address]Dr. Emelina Navarro IG % 0.4 % Normal 0.0-0.5 [facility] Comment on above: Performed By: #### C BC ####[facility] Yfszyksbie[address] [place], [place] [address]Dr. Emelina Navarro LYMPH # 1.5 103/ul Normal 1.2-3.8 [facility] Comment on above: Performed By: #### C BC ####[facility] Auvhjdjech[address] [place], [place] [address]Dr. Emelina Navarro Lymphocytes/100 WBC (Bld) 13.1 % Critically low 20.5-60.0 [facility] Comment on above: Performed By: #### C BC ####[facility] W[address]brstwad[address] [place] [address]DrWesley Navarro MANUAL DIFF REQ NO Normal [facility] Comment on above: Performed By: #### C BC ####[facility] Xyjwkxsbxb[address] [place] [address]Dr. Emelina Navarro MCH (RBC) [Entitic mass] 28.9 pg Normal 25.9-34.0 [facility] Comment on above: Performed By: #### C BC ####[facility] H[address]fardslj[address] [place], [place] [address]DrWesley Navarro MCHC (RBC) [Mass/Vol] 31.9 g/dL Normal 29.9-35.2 [facility] Comment on above: Performed By: #### C BC ####[facility] Zasosteojg[address] [place], [place] [address]DrWesley Navarro MCV (RBC) [Entitic vol] 90.6 fL Normal 80.0-94.0 [facility] Comment on above: Performed By: #### C BC ####[facility] [address]yg[address]ukt[address] [place], [place] [address]DrWesley Navarro MONO # 0.8 103/ul Normal 0.3-0.8 [facility] Comment on above: Performed By: #### C BC ####[facility] [address]fr[address] [place], [place] [address]DrWesley Navarro Monocytes/100 WBC (Bld) 7.0 % Normal 1.7-12.0 [facility] Comment on above: Performed By: #### C BC ####[facility] [address] [place], [place] [address]DrWesley Navarro NEUT # 8.8 103/ul Critically high 1.4-6.5 [facility] Comment on above: Performed By: #### C BC ####[facility] [address]utfof[address] [place], [place] [address]DrWesley Navarro Neutrophils/100 WBC (Bld) 76.7 % Critically high 43.0-75.0 [facility] Comment on above: Performed By: #### C BC ####[facility] Qrrjscxjto2[address] [place] [address]Dr. Emelina Navarro Platelet mean volume (Bld) [Entitic vol] 9.9 fL Normal 9.5-13.5 [facility] Comment on above: Performed By: #### C BC ####[facility] [address] [place] [phone]. Emelina Navarro PLT 201 103/ul Normal 150-450 [facility] Comment on above: Performed By: #### C BC ####[facility] Jklqugkgqe[address] [place] [id number]. Emelina Navarro RBC 4.46 106/ul Critically low 4.70-6.10 [facility] Comment on above: Performed By: #### C BC ####[facility] Akytgjfwns[address] [place] [phone]. Emelina Navarro WBC 11.4 103/ul Critically high 4.0-11.0 [facility] Comment on above: Performed By: #### C BC ####[facility] Cvszqancfy[address] [place] [phone]. Emelina Navarro Covid-19 PCR ([facility]on 09-19 SARS-CoV-2 (COVID-19) RNA RADHA+probe Ql (Unsp spec) Not detected Normal NOT DETECTED [facility] Comment on above: Result Comment: When [...] for this test is supported by the Bulking Machine Operator of Health and Human Service's declaration that [...] be used). Performed By: #### C VDTBH ####[facility] [address]useah[address] [place] [address]Dr. Emelina Navarro PROF 14(COMP METB)on 022 Albumin [Mass/Vol] 3.1 g/dL Critically low 3.4-5.0 [facility] Comment on above: Performed By: #### H STROPN, BNP, CMP ####[facility] [address]churp[address] [place] [address]Dr. Emelina Navarro Albumin/Globulin [Mass ratio] 0.8 {ratio} Normal [facility] Comment on above: Performed By: #### H STROPN, BNP, CMP ####[facility] [address]pb[address]zfi[address] [place] [address]Dr. Emelina Navarro ALP [Catalytic activity/Vol] 118 U/L Critically high 46-116 [facility] Comment on above: Performed By: #### H STROPN, BNP, CMP ####[facility] Ovhlecbztw[address] [place] [address]Dr. Emelina Navarro ALT [Catalytic activity/Vol] 22 U/L Normal 16-63 [facility] Comment on above: Performed By: #### H STROPN, BNP, CMP ####[facility] Nwhdcowdky[address] [place] [address]Dr. Emelina Navarro Anion gap [Moles/Vol] 8.6 mmol/L Normal [facility] Comment on above: Performed By: #### H STROPN, BNP, CMP ####[facility] Yggceqeczx[address] [place] [address]Dr. Emelina Navarro AST [Catalytic activity/Vol] 23 U/L Normal 15-37 [facility] Comment on above: Performed By: #### H STROPN, BNP, CMP ####[facility] Srqscfzoxj[address] [place] [address]Dr. Emelina Navarro Bilirubin [Mass/Vol] 1.0 mg/dL Normal 0.2-1.0 [facility] Comment on above: Performed By: #### H STROPN, BNP, CMP ####[facility] Wknkengfow[address] [place], [place] [address]Dr. Emelina Navarro Calcium [Mass/Vol] 8.4 mg/dL Critically low 8.5-10.1 Th [facility] Comment on above: Performed By: #### H STROPN, BNP, CMP ####[facility] Vnvugseiyp[address] [place], [place] [address]Dr. Emelina Navarro Chloride [Moles/Vol] 101 mmol/L Normal 98-107 [facility] Comment on above: Performed By: #### H STROPN, BNP, CMP ####[facility] Pcqluokxij[address] [place], [place] [address]Dr. Emelina Navarro CO2 [Moles/Vol] 33.3 mmol/L Critically high 21.0-32.0 [facility] Comment on above: Performed By: #### H STROPN, BNP, CMP ####[facility] Qklxlpmmdr[address] [place], [place] [address]Dr. Emelina Navarro Creatinine [Mass/Vol] 1.52 mg/dL Critically high 0.70-1.30 [facility] Comment on above: Performed By: #### H STROPN, BNP, CMP ####[facility] Bsirlylluv[address] [place], [place] [address]Dr. Emelina Navarro EGFR-AF TOGOLESE 56 mL/min/1.73m2 Critically low >=60 [facility] Comment on above: Performed By: #### H STROPN, BNP, CMP ####[facility] Rietgwrnkm[address] [place], [place] [address]Dr. Emelina Navarro EGFR-NON AF TOGOLESE 46 mL/min/1.73m2 Critically low >=60 [facility] Comment on above: Performed By: #### H STROPN, BNP, CMP ####[facility] Tydvnjsfox3[address] [place], [place] [address]Dr. Emelina Navarro Globulin (S) [Mass/Vol] 4.1 g/dL Normal [facility] Comment on above: Performed By: #### H STROPN, BNP, CMP ####[facility] [address]zhejtifl[address] [place] [address]Dr. Emelina Navarro Glucose [Mass/Vol] 141 mg/dL Critically high 74-106 [facility] Comment on above: Performed By: #### H STROPN, BNP, CMP ####[facility] [address]qflozjfhp[address] [place] [address]Dr. Emelina Navarro Potassium [Moles/Vol] 3.9 mmol/L Normal 3.5-5.1 [facility] Comment on above: Performed By: #### H STROPN, BNP, CMP ####[facility] Azrtpyiqic[address] [place] [address]Dr. Emelina Navarro Protein [Mass/Vol] 7.2 g/dL Normal 6.4-8.2 [facility] Comment on above: Performed By: #### H STROPN, BNP, CMP ####[facility] Lkcdclwifi46[address] [place], [place] [address]Dr. Emelina Navarro Sodium [Moles/Vol] 139 mmol/L Normal 136-145 [facility] Comment on above: Performed By: #### H STROPN, BNP, CMP ####[facility] Gcdtrppcdm[address] [place], [place] [address]Dr. Emelina Navarro Urea nitrogen [Mass/Vol] 26.0 mg/dL Critically high 7.0-18.0 [facility] Comment on above: Performed By: #### H STROPN, BNP, CMP ####[facility] Uxewqvurfg[address] [place], [place] [address]Dr. Emelina Navarro Urea nitrogen/Creatinine [Mass ratio] 17.1 mg/mg Normal [facility] Comment on above: Performed By: #### H STROPN, BNP, CMP ####[facility] R[address]cmzwavc[address] [place] [address]Dr. Emelina Navarro PROTIMEon 10-03-2022 INR Coag (PPP) [Relative time] 1.76 {INR} Normal [facility] Comment on above: Performed By: #### P T, PTT ####[facility] [address]tsrdmqtn[address] [place] [address]Dr. Emelina Navarro INR GUIDELINES SEE BELOW Normal [facility] Comment on above: Result Comment: WENDY RED INR: 2.0 - 3.0 CONDITIONS NOT LISTED BELOW 2.5 - 3.5 FOR PROSTHETIC HEART VALVE REPLACEMENT 2.5 - 3.5 RECURRENT THROMBOSIS Performed By: #### P T, PTT ####[facility] [address]zxjry[address] [place] [address]Dr. Emelina Navarro PT Coag (PPP) [Time] 18.3 s Critically high 9.0-11.6 [facility] Comment on above: Performed By: #### P T, PTT ####[facility] Becwfgnnlq[address] [place], [place] [address]Dr. Emelina Navarro PTTon 10-03-2022 aPTT Coag (Bld) [Time] 33.9 s Normal 22.3-36.2 [facility] Comment on above: Performed By: #### P T, PTT ####[facility] Arvqpvbeiv[address] [place], [place] [address]Dr. Emelina Navarro TROPONIN, HIGH SENSITIVITYon 10-03-2022 HSTROP 40.2 pg/mL Normal 4.0-76.1 [facility] Comment on above: Result Comment: CUT- OFF POINTS HAVE BEEN ESTABLISHED BASED ON THE FOURTH UNIVERSAL DEFINITIONS OF MYOCARDIALINFARCTION. THE UPPER REFERENCE LIMIT (URL) OF TROPONIN, DEFINED THE 99TH PERCENTILE OFcTnI DISTRIBUTION IN A REFERENCE POPULATION, HAS BEEN CONFIRMED THE DECISION THRESHOLDFOR OR DIAGNOSIS. Performed By: #### H STROPN, BNP, CMP ####[facility] [address]mlna[address] [place] [address]Dr. Emelina Navarro XR CHEST 1 Von 10-03-2022 XR CHEST 1 V Normal [facility] PTH INTACTon 09-19-2022 PTH, Intact 52 pg/mL Normal 15-65 [facility] Comment on above: Performed By: #### P THINT ####[facility] Zlmtrnuucf[address] [place] [address]Dr. Emelina Navarro FERRITINon 09-18-2022 Ferritin [Mass/Vol] 92.0 ng/mL Normal 26.0-388.0 [facility] Comment on above: Performed By: #### V ITAD, FERR, FETIBC ####[facility] W[address]jush[address] [place] [address]Dr. Emelina Navarro HEMOGRAM AND PLATELon 2021 Hematocrit (Bld) [Volume fraction] 44.3 % Normal 42.0-54.0 [facility] Comment on above: Performed By: #### H H ####[facility] [address] [place] [address]Dr. Emelina Navarro Hemoglobin (Bld) [Mass/Vol] 14.0 g/dL Normal 14.0-18.0 [facility] Comment on above: Performed By: #### H H ####[facility] Gdojweqnsz[address] [place], [place] [address]Dr. Emelina Navarro MCH (RBC) [Entitic mass] 29.0 pg Normal 25.9-34.0 [facility] Comment on above: Performed By: #### H H ####[facility] [address]kimizfko[address] [place] [address]Dr. Emelina Navarro MCHC (RBC) [Mass/Vol] 31.6 g/dL Normal 29.9-35.2 [facility] Comment on above: Performed By: #### H H ####[facility] Gakjxdngig[address] [place], [place] [address]Dr. Emelina Navarro MCV (RBC) [Entitic vol] 91.7 fL Normal 80.0-94.0 [facility] Comment on above: Performed By: #### H H ####[facility] [address] [place] [address]Dr. Emelina Navarro PLT 187 103/ul Normal 150-450 [facility] Comment on above: Performed By: #### H H ####[facility] Hjarzaxhbb[address] [place] [address]Dr. Emelina Navarro RBC 4.83 106/ul Normal 4.70-6.10 [facility] Comment on above: Performed By: #### H H ####[facility] Fwrxxhzpka[address] [place], [place] [address]Dr. Emelina Navarro WBC 13.9 103/ul Critically high 4.0-11.0 [facility] Comment on above: Performed By: #### H H ####[facility] [address]vbpgifp[address] [place] [address]Dr. Emelina Navarro IRON AND TIBCon 09-18-2022 % SATURATION 28.9 % Normal [facility] Comment on above: Performed By: #### V ANA WEISS, FETIBC ####[facility] Scgyczmlkr[address] [place] [phone]. Awildanitza Navarro Iron [Mass/Vol] 76.0 ug/dL Normal 65.0-175.0 [facility] Comment on above: Performed By: #### V ANA WEISS FETIBC ####[facility] [address]hpxrsi[address] [place] [address]Dr. Emelina Navarro TIBC DIRECT 263.0 ug/dL Normal 250.0-450. 0 [facility] Comment on above: Performed By: #### ANA TAYLOR, FETIBC ####[facility] [address]movmej[address] [place] [address]Dr. Awildanitza Navarro MAGNESIUMon 09-18-2022 Magnesium [Mass/Vol] 2.3 mg/dL Normal 1.8-2.4 [facility] Comment on above: Performed By: #### R ENAL, URIC, MG ####[facility] [address]elxa[address] [place] [address]Dr. Emelina Navarro RENAL FUNCTION PANELon 09-18 Albumin [Mass/Vol] 3.5 g/dL Normal 3.4-5.0 [facility] Comment on above: Performed By: #### R ENAL, URIC, MG ####[facility] [address]zrsijiwbm[address] [place] [address]Dr. Emelina Navarro Calcium [Mass/Vol] 8.4 mg/dL Critically low 8.5-10.1 [facility] Comment on above: Performed By: #### R ENAL, URIC, MG ####[facility] Xlfszqwrtn[address] [place] [address]Dr. Emelina Navarro Chloride [Moles/Vol] 100 mmol/L Normal 98-107 [facility] Comment on above: Performed By: #### R ENAL, URIC, MG ####[facility] Mblqcwwsjv[address] [place], [place] [address]Dr. Emelina Navarro CO2 [Moles/Vol] 31.0 mmol/L Normal 21.0-32.0 [facility] Comment on above: Performed By: #### R ENAL, URIC, MG ####[facility] Rmnhbxdgig[address] [place], [place] [address]Dr. Emelina Navarro Creatinine [Mass/Vol] 1.63 mg/dL Critically high 0.70-1.30 [facility] Comment on above: Performed By: #### R ENAL, URIC, MG ####[facility] Mfrmdxpxka[address] [place], [place] [address]Dr. Emelina Navarro EGFR-AF TOGOLESE 51 mL/min/1.73m2 Critically low >=60 [facility] Comment on above: Performed By: #### R ENAL, URIC, MG ####[facility] Jwujonhfnt96[address] [place], [place] [address]Dr. Emelina Navarro EGFR-NON AF TOGOLESE 42 mL/min/1.73m2 Critically low >=60 [facility] Comment on above: Performed By: #### R ENAL, URIC, MG ####[facility] Mqvdcnhwsw[address] [place], [place] [address]Dr. Emelina Navarro Glucose [Mass/Vol] 135 mg/dL Critically high 74-106 [facility] Comment on above: Performed By: #### R ENAL, URIC, MG ####[facility] Rmisgjwaty01[address] [place], [place] [address]Dr. Emelina Navarro Phosphate [Mass/Vol] 3.4 mg/dL Normal 2.6-4.7 [facility] Comment on above: Performed By: #### R ENAL, URIC, MG ####[facility] Uzssgwxafo[address] [place], [place] [address]Dr. Emelina Navarro Potassium [Moles/Vol] 4.5 mmol/L Normal 3.5-5.1 [facility] Comment on above: Performed By: #### R ENAL, URIC, MG ####[facility] Npcifdarkq97[address] [place], [place] [address]Dr. Emelina Navarro Sodium [Moles/Vol] 137 mmol/L Normal 136-[address] [facility] Comment on above: Performed By: #### R ENAL, URIC, MG ####[facility] Opvjxdaaax[address] [place], [place] [address]Dr. Emelina Navarro Urea nitrogen [Mass/Vol] 26.0 mg/dL Critically high 7.0-18.0 [facility] Comment on above: Performed By: #### R ENAL, URIC, MG ####[facility] Vfxdeapmtp[address] [place], [place] [address]Dr. Emelina Navarro UA RANDOM W/MICROSCOPICon BACTERIA NONE SEEN Normal NONE SEEN [facility] Comment on above: Performed By: #### U AMIC ####[facility] Rvgzqgovdu40[address] [place], [place] [address]Dr. Emelina Navarro Bilirubin Ql (U) Negative Normal NEGATIVE [facility] Comment on above: Performed By: #### U AMIC ####[facility] Kqljmkfnfz[address] [place], [place] [address]Dr. Emelina Navarro CAST NONE SEEN Normal NONE SEEN [facility] Comment on above: Performed By: #### U AMIC ####[facility] Rhqvzrbfry[address] [place], [place] [address]Dr. Emelina Nvaarro Clarity (U) CLEAR Normal CLEAR [facility] Comment on above: Performed By: #### U AMIC ####[facility] Ixhaqlmllq68[address] [place], [place] [address]Dr. Emelina Naavrro Color (U) LT. YELLOW Normal YELLOW [facility] Comment on above: Performed By: #### U AMIC ####[facility] Mfxnklyrhl6[address] [place], [place] [address]Dr. Emelina Navarro Crystals LM Nom (Urine sed) NONE SEEN Normal NONE SEEN [facility] Comment on above: Performed By: #### U AMIC ####[facility] Rvkvrrhbjg[address] [place] [address]Dr. Emelina Navarro Epithelial cells LM Ql (Urine sed) NONE SEEN Normal NONE SEEN /RARE [facility] Comment on above: Performed By: #### U AMIC ####[facility] Kmddhwpzts[address] [place] [address]Dr. Emelina Navarro Glucose Ql (U) >1000 Abnormal NEGATIVE [facility] Comment on above: Performed By: #### U AMIC ####[facility] Wulbtfzpac[address] [place], [place] [address]Dr. Emelina Navarro Hemoglobin Ql (U) Negative Normal NEGATIVE [facility] Comment on above: Performed By: #### U AMIC ####[facility] Ykjopiedeq[address] [place], [place] [address]Dr. Emelina Navarro Ketones Ql (U) Negative Normal NEGATIVE [facility] Comment on above: Performed By: #### U AMIC ####[facility] Owmmlkkgrs[address] [place], [place] [address]Dr. Emelina Navarro LEUKOCYTES Negative Normal NEGATIVE [facility] Comment on above: Performed By: #### U AMIC ####[facility] Dteqvmzhoa[address] [place], [place] [address]Dr. Emelina Navarro MUCOUS NONE SEEN Normal NONE SEEN [facility] Comment on above: Performed By: #### U AMIC ####[facility] [address]uq[address]uanfj[address] [place] [address]Dr. Emelina Navarro Nitrite Ql (U) Negative Normal NEGATIVE [facility] Comment on above: Performed By: #### U AMIC ####[facility] Kxjannjgwb[address] [place], [place] [address]Dr. Emelina Navarro pH (U) 6.0 [pH] Normal 5-9 [facility] Comment on above: Performed By: #### U AMIC ####[facility] Mcdutxcxmx299[address] [place], [place] [address]Dr. Emelina Navarro RBC 0-2 Normal 0-2 [facility] Comment on above: Performed By: #### U AMIC ####[facility] Jafrrdomia[address] [place], [place] [address]Dr. Emelina Navarro SPEC GRAVITY 1.010 Normal 1.005-<=1. 025 [facility] Comment on above: Performed By: #### U AMIC ####[facility] [address]ia[address]endaf[address] [place] [address]Dr. Emelina Navarro UA PROTEIN Negative Normal NEGATIVE/ TRACE [facility] Comment on above: Performed By: #### U AMIC ####[facility] Chobsvdrji[address] [place] [address]Dr. Emelina Navarro Urobilinogen Qn (U) 0.2 {Ashley'U}/dL Normal 0.2 - 1. 0 [facility] Comment on above: Performed By: #### U AMIC ####[facility] Dpcrxxcyte[address] [place], [place] [address]Dr. Emelina Navarro WBC NONE SEEN Normal NONE SEEN [facility] Comment on above: Performed By: #### U AMIC ####[facility] Gjbaktoabq[address] [place], [place] [address]Dr. Emelina Navarro URIC ACID SERUMon 09-18-2022 Urate [Mass/Vol] 9.2 mg/dL Critically high 3.5-7.2 [facility] Comment on above: Performed By: #### R ENAL, URIC, MG ####[facility] Krtwdkhdqe0[address] [place], [place] [address]Dr. Emelina Navarro URINE T PROTEIN CREAT RATIOo n 09-18-2022 Protein (U) [Mass/Vol] 17.5 mg/dL Critically high <=12.0 [facility] Comment on above: Performed By: #### U RTPCR ####[facility] Ucdfxntxko375[address] [place], [place] [address]Dr. Emelina Navarro UR PROT CREAT RAT 0.[address] [facility] Comment on above: Performed By: #### U RTPCR ####[facility] Hirlhpsecv[address] [place], [place] [address]Dr. Emelina Navarro URINE CREAT 28.53 mg/dL Normal 20.00-300. 00 [facility] Comment on above: Performed By: #### U RTPCR ####[facility] Zogrsryyss[address] [place] [id number]. Emelina Navarro VITAMIN D 25 OHon 09-18-2022 VIT D 25-OH 49.6 ng/mL Normal [facility] Comment on above: Performed By: #### V ANA WEISS FETIBC ####[facility] R[address]lmwhsb[address] [place] [address]Dr. Emelina Navarro VIT D RANGES SEE BELOW Normal [facility] Comment on above: Result Comment: <20 ng/mL Vit D deficient 20 - <30 ng/mL Vit D insufficient 30 - 100 ng/mL Vit D sufficient >100 ng/mL Potential Toxicity Performed By: #### V ANA WEISS FETIBC ####[facility] Jyeohlpawj[address] [place], [place] [address]Dr. Emelina Navarro A1C HEMOGLOBINon 07-31-2022 HbA1c (Bld) [Mass fraction] 6.7 % [facility]Wireless [facility] J[facility]o Tada Other Glucose - FINGER STICKon Glucose [Mass/Vol] 338 mg/dL [employer] Other HbA1c (Bld) [Mass fraction]o n 07-31-2022 A1C HEMOGLOBIN [facility] Junko Tada Other BNPon 07-19-2022 Natriuretic peptide B (Bld) [Mass/Vol] 7571.0 pg/mL Critically high <=900.0 [facility] Comment on above: Performed By: #### B MP, BNP ####[facility] Hrgjbvylls[address] [place], [place] [address]Dr. Emelina Navarro PROF CHEM 8 (BAS METB)on Anion gap [Moles/Vol] 11.6 mmol/L Normal [facility] Comment on above: Performed By: #### B MP, BNP ####[facility] Mdayqezoji[address] [place] [address]DrWesley Navarro Calcium [Mass/Vol] 9.2 mg/dL Normal 8.5-10.1 [facility] Comment on above: Performed By: #### B MP, BNP ####[facility] Hgnkuoiquq67[address] [place] [address]Dr. Emelina Navarro Chloride [Moles/Vol] 102 mmol/L Normal 98-107 [facility] Comment on above: Performed By: #### B MP, BNP ####[facility] Sscokhlagb[address] [place], [place] [address]Dr. Emelina Navarro CO2 [Moles/Vol] 30.6 mmol/L Normal 21.0-32.0 [facility] Comment on above: Performed By: #### B MP, BNP ####[facility] Ljpaewutql[address] [place], [place] [address]Dr. Emelina Navarro Creatinine [Mass/Vol] 1.72 mg/dL Critically high 0.70-1.30 [facility] Comment on above: Performed By: #### B MP, BNP ####[facility] Yedrglqojy38[address] [place], [place] [address]Dr. Emelina Ramon EGFR-AF TOGOLESE 48 mL/min/1.73m2 Critically low >=60 [facility] Comment on above: Performed By: #### B MP, BNP ####[facility] Antqmeyaml86[address] [place], [place] [address]Dr. Emelina Navarro EGFR-NON AF TOGOLESE 40 mL/min/1.73m2 Critically low >=60 [facility] Comment on above: Performed By: #### B MP, BNP ####[facility] Ecrfysaptb15[address] [place], [place] [address]Dr. Emelina Navarro Glucose [Mass/Vol] 76 mg/dL Normal 74-[address] [facility] Comment on above: Performed By: #### B MP, BNP ####[facility] Sjwrnahtob7[address] [place], [place] [address]Dr. Emelina Navarro Potassium [Moles/Vol] 4.2 mmol/L Normal 3.5-5.1 [facility] Comment on above: Performed By: #### B MP, BNP ####[facility] Rzaxfmqkoq04[address] [place], [place] [address]Dr. Emelina Navarro Sodium [Moles/Vol] 140 mmol/L Normal 136-[address] [facility] Comment on above: Performed By: #### B MP, BNP ####[facility] Crtisuhzeg[address] [place] [id number]. Awildanitza Navarro Urea nitrogen [Mass/Vol] 19.0 mg/dL Critically high 7.0-18.0 [facility] Comment on above: Performed By: #### B MP, BNP ####[facility] [address]jwrdjkie[address] [place] [address]Dr. Emelina Navarro Urea nitrogen/Creatinine [Mass ratio] 11.0 mg/mg Normal [facility] Comment on above: Performed By: #### B MP, BNP ####[facility] Ngczgojykh[address] [place], [place] [address]Dr. Emelina Navarro CBC AUTO DIFFon 06-16-2022 BASO # 0.0 103/ul Normal 0.0-0.1 [facility] Comment on above: Performed By: #### C BC ####[facility] Rbirvuvcey[address] [place], [place] [address]Dr. Emelina Navarro Basophils/100 WBC (Bld) 0.1 % Critically low 0.2-2.0 [facility] Comment on above: Performed By: #### C BC ####[facility] Georxxstvf[address] [place], [place] [address]Dr. Emelina Navarro EO # 0.1 103/ul Normal 0.0-0.7 [facility] Comment on above: Performed By: #### C BC ####[facility] Hxyhinhjcr[address] [place], [place] [address]Dr. Emelina Navarro Eosinophils/100 WBC (Bld) 0.4 % Critically low 0.9-7.0 [facility] Comment on above: Performed By: #### C BC ####[facility] Uzoihblasr4[address] [place], [place] [address]Dr. Emelina Navarro Erythrocyte distribution width (RBC) [Ratio] 17.1 % Critically high 11.0-15.0 [facility] Comment on above: Performed By: #### C BC ####[facility] H[address]yp[address]xwz[address] [place], [place] [address]Dr. Emelina Navarro Hematocrit (Bld) [Volume fraction] 44.7 % Normal 42.0-54.0 [facility] Comment on above: Performed By: #### C BC ####[facility] [address]fkb[address]xy[address] [place] [address]Dr. Emelina Navarro Hemoglobin (Bld) [Mass/Vol] 14.5 g/dL Normal 14.0-18.0 [facility] Comment on above: Performed By: #### C BC ####[facility] Ucefisurjq[address] [place] [address]Dr. Emelina Navarro IG # 0.07 10e3/ul Critically high 0.00-0.[address] [facility] Comment on above: Performed By: #### C BC ####[facility] Ithsgpfkiv[address] [place] [address]Dr. Emelina Ramon IG % 0.4 % Normal 0.0-0.5 [facility] Comment on above: Performed By: #### C BC ####[facility] M[address]pgxfwpr[address] [place], [place] [address]Dr. Emelina Ramon LYMPH # 2.0 103/ul Normal 1.2-3.8 [facility] Comment on above: Performed By: #### C BC ####[facility] [address]eyldabbet[address] [place] [address]Dr. Emelina Ramon Lymphocytes/100 WBC (Bld) 12.1 % Critically low 20.5-60.0 [facility] Comment on above: Performed By: #### C BC ####[facility] Uhmpmwxnrz[address] [place] [address]Dr. Awildanitza Navarro MANUAL DIFF REQ NO Normal [facility] Comment on above: Performed By: #### C BC ####[facility] Iuiwr[address]faq57[address] [place] [phone]. Emelina Ramon MCH (RBC) [Entitic mass] 28.2 pg Normal 25.9-34.0 [facility] Comment on above: Performed By: #### C BC ####[facility] [facility] Sreaapdwld[address] [place] [phone]. Emelina Ramon MCHC (RBC) [Mass/Vol] 32.4 g/dL Normal 29.9-35.2 [facility] Comment on above: Performed By: #### C BC ####[facility] Kossbvovqv40[address] [place] [phone]. Emelina Ramon MCV (RBC) [Entitic vol] 86.8 fL Normal 80.0-94.0 [facility] Comment on above: Performed By: #### C BC ####[facility] Pvjpwjgeit7946 [place] [phone]. Emelina Ramon MONO # 0.7 103/ul Normal 0.3-0.8 [facility] Comment on above: Performed By: #### C BC ####[facility] Sjdqhfgljg[address] [place] [address]Dr. Awildanitza Navarro Monocytes/100 WBC (Bld) 4.3 % Normal 1.7-12.0 [facility] Comment on above: Performed By: #### C BC ####[facility] Zzcttstuio[address] [place], [place] [address]Dr. Emelina Ramon NEUT # 13.4 103/ul Critically high 1.4-6.5 [facility] Comment on above: Performed By: #### C BC ####[facility] Pvjwygguxu[address] [place], [place] [id number]. Awildanitza Navarro Neutrophils/100 WBC (Bld) 82.7 % Critically high 43.0-75.0 [facility] Comment on above: Performed By: #### C BC ####[facility] Omwdcxcxns[address] [place], [place] [address]Dr. Awildanitza Navarro Platelet mean volume (Bld) [Entitic vol] 9.5 fL Normal 9.5-13.5 [facility] Comment on above: Performed By: #### C BC ####[facility] Qswkvgyzvk[address] [place], [place] [id number]. Emelina Navarro PLT 218 103/ul Normal 150-450 [facility] Comment on above: Performed By: #### C BC ####[facility] Rrkhsrausd17[address] [place] [phone]. Emelina Navarro RBC 5.15 106/ul Normal 4.70-6.10 [facility] Comment on above: Performed By: #### C BC ####[facility] Fphvnoifjf8[address] [place] [address]Dr. Emelina Navarro WBC 16.2 103/ul Critically high 4.0-11.0 [facility] Comment on above: Performed By: #### C BC ####[facility] Fknzxnjxey6[address] [place] [address]Dr. Emelina Navarro PROF 14(COMP METB)on 022 Albumin [Mass/Vol] 3.3 g/dL Critically low 3.4-5.0 [facility] Comment on above: Performed By: #### C MP ####[facility] Ayiruodjqc55[address] [place] [address]Dr. Emelina Naavrro Albumin/Globulin [Mass ratio] 0.8 {ratio} Normal [facility] Comment on above: Performed By: #### C MP ####[facility] Axuseqmztf[address] [place], [place] [address]Dr. Emelina Navarro ALP [Catalytic activity/Vol] 81 U/L Normal 46-116 [facility] Comment on above: Performed By: #### C MP ####[facility] Uzswwxapdb[address] [place], [place] [address]Dr. Emelina Navarro ALT [Catalytic activity/Vol] 34 U/L Normal 16-63 [facility] Comment on above: Performed By: #### C MP ####[facility] Zbvzjgvokp6[address] [place] [address]Dr. Emelina Navarro Anion gap [Moles/Vol] 14.1 mmol/L Normal [facility] Comment on above: Performed By: #### C MP ####[facility] Kdlolewmql95[address] [place] [address]Dr. Emelina Navarro AST [Catalytic activity/Vol] 22 U/L Normal 15-37 [facility] Comment on above: Performed By: #### C MP ####[facility] Orxjtlbjrv99[address] [place] [address]Dr. Emelina Navarro Bilirubin [Mass/Vol] 1.0 mg/dL Normal 0.2-1.0 [facility] Comment on above: Performed By: #### C MP ####[facility] Wmeuvxbpji4975 [place] [phone]. Emelina Navarro Calcium [Mass/Vol] 8.6 mg/dL Normal 8.5-10.1 [facility] Comment on above: Performed By: #### C MP ####[facility] Cyoyxfwfjx7896 [place] [phone]. Emelina Navarro Chloride [Moles/Vol] 98 mmol/L Normal 98-107 [facility] Comment on above: Performed By: #### C MP ####[facility] Qduhbqxxtu5996 [place] [phone]. Emelina Navarro CO2 [Moles/Vol] 28.0 mmol/L Normal 21.0-32.0 [facility] Comment on above: Performed By: #### C MP ####[facility] Mesiidtmbv5[address] [place] [address]Dr. Emelina Ramon Creatinine [Mass/Vol] 1.83 mg/dL Critically high 0.70-1.30 [facility] Comment on above: Performed By: #### C MP ####[facility] Gxwomqkzha4[address] [place] [address]Dr. Emelina Ramon EGFR-AF TOGOLESE 45 mL/min/1.73m2 Critically low >=60 [facility] Comment on above: Performed By: #### C MP ####[facility] Zdeyfgidzv5[address] [place] [address]Dr. Awildanitza Ramon EGFR-NON AF TOGOLESE 37 mL/min/1.73m2 Critically low >=60 [facility] Comment on above: Performed By: #### C MP ####[facility] Wcyogbsjgv7742 [place] [phone]. Emelina Navarro Globulin (S) [Mass/Vol] 4.3 g/dL Normal [facility] Comment on above: Performed By: #### C MP ####[facility] Eoktcnbatj4605 [place] [phone]. Emelina Navarro Glucose [Mass/Vol] 173 mg/dL Critically high 74-106 [facility] Comment on above: Performed By: #### C MP ####[facility] Ywvpwbqbgv6052 [place] [address]Dr. Emelina Navarro Potassium [Moles/Vol] 4.1 mmol/L Normal 3.5-5.1 [facility] Comment on above: Performed By: #### C MP ####[facility] Fvgrzgjjzl1275 [place] [address]Dr. Awildanitza Ramon Protein [Mass/Vol] 7.6 g/dL Normal 6.4-8.2 [facility] Comment on above: Performed By: #### C MP ####[facility] Rupbjoxqpa6000[address] [place], [place] [address]Dr. Awildanitza Ramon Sodium [Moles/Vol] 136 mmol/L Normal 136-145 [facility] Comment on above: Performed By: #### C MP ####[facility] Cfxywvhhmc988[address] [place], [place] [address]Dr. Emelina Navarro Urea nitrogen [Mass/Vol] 46.0 mg/dL Critically high 7.0-18.0 [facility] Comment on above: Performed By: #### C MP ####[facility] Nujsthqsch75[address] [place], [place] [address]Dr. Emelina Ramon Urea nitrogen/Creatinine [Mass ratio] 25.1 mg/mg Normal [facility] Comment on above: Performed By: #### C MP ####[facility] Pdsfoqwedx6[address] [place], [place] [address]Dr. Emelina Navarro PROTIMEon 06-16-2022 INR Coag (PPP) [Relative time] 2.12 {INR} Normal [facility] Comment on above: Performed By: #### P T ####[facility] Mgvuavvaxv8080[address] [place], [place] [address]Dr. Emelina Navarro INR GUIDELINES SEE BELOW Normal [facility] Comment on above: Result Comment: WENDY RED INR: 2.0 - 3.0 CONDITIONS NOT LISTED BELOW 2.5 - 3.5 FOR PROSTHETIC HEART VALVE REPLACEMENT 2.5 - 3.5 RECURRENT THROMBOSIS Performed By: #### P T ####[facility] Fenczdjkzq45[address] [place], [place] [address]DrWesley Navarro PT Coag (PPP) [Time] 21.8 s Critically high 9.0-11.6 [facility] Comment on above: Performed By: #### P T ####[facility] Vgamebqtcv255[address] [place], [place] [address]DrWesley Navarro BNPon 06-15-2022 Natriuretic peptide B (Bld) [Mass/Vol] 4304.0 pg/mL Critically high <=900.0 [facility] Comment on above: Performed By: #### B SERVICE RIG OPERATOR ####[facility] Pcixbqtjso580[address] [place], [place] [address]DrWesley Navarro CBC AUTO DIFFon 06-15-2022 BASO # 0.0 103/ul Normal 0.0-0.1 [facility] Comment on above: Performed By: #### C BC ####[facility] Ihbwjcpcjh996[address] [place], [place] [address]DrWesley Navarro Basophils/100 WBC (Bld) 0.1 % Critically low 0.2-2.0 [facility] Comment on above: Performed By: #### C BC ####[facility] Nhzrubbocf75[address] [place], [place] [address]DrWesley Navarro EO # 0.0 103/ul Normal 0.0-0.7 [facility] Comment on above: Performed By: #### C BC ####[facility] Rypywyyrqv189[address] [place], [place] [address]DrWesley Navarro Eosinophils/100 WBC (Bld) 0.1 % Critically low 0.9-7.0 [facility] Comment on above: Performed By: #### C BC ####[facility] Ajinwloazy104[address] [place], [place] [address]DrWesley Navarro Erythrocyte distribution width (RBC) [Ratio] 17.1 % Critically high 11.0-15.0 [facility] Comment on above: Performed By: #### C BC ####[facility] Rsdonaqqbr[address] [place], [place] [address]DrWesley Navarro Hematocrit (Bld) [Volume fraction] 40.9 % Critically low 42.0-54.0 [facility] Comment on above: Performed By: #### C BC ####[facility] Kghvrzqhun86[address] [place] [address]DrWesley Emelina Ramon Hemoglobin (Bld) [Mass/Vol] 13.4 g/dL Critically low 14.0-18.0 [facility] Comment on above: Performed By: #### C BC ####[facility] Qjwqnbcdro4767 [place] [address]DrWesley Kaisernitza Ramon IG # 0.17 10e3/ul Critically high 0.00-0.[address] [facility] Comment on above: Performed By: #### C BC ####[facility] Uhrfuupgxq8593 [place] [address]DrWesley Navarro IG % 0.8 % Critically high 0.0-0.5 [facility] Comment on above: Performed By: #### C BC ####[facility] Mxwdulwlzl9624[address] [place], [place] [address]DrWesley Navarro LYMPH # 1.4 103/ul Normal 1.2-3.8 [facility] Comment on above: Performed By: #### C BC ####[facility] Fwxzohaarp1705 [place] [address]DrWesley Navarro Lymphocytes/100 WBC (Bld) 6.8 % Critically low 20.5-60.0 [facility] Comment on above: Performed By: #### C BC ####[facility] Thhenmsvmk2448 [place] [address]DrWesley Navarro MANUAL DIFF REQ NO Normal [facility] Comment on above: Performed By: #### C BC ####[facility] Jsxertjjnx3840 [place] [phone] Navarro MCH (RBC) [Entitic mass] 28.6 pg Normal 25.9-34.0 [facility] Comment on above: Performed By: #### C BC ####[facility] Wtgsgyyohn7400 [place] [phone] Navarro MCHC (RBC) [Mass/Vol] 32.8 g/dL Normal 29.9-35.2 [facility] Comment on above: Performed By: #### C BC ####[facility] Nbomznnhwg0846 [place] [address]DrWesley Kaisernitza Ramon MCV (RBC) [Entitic vol] 87.2 fL Normal 80.0-94.0 [facility] Comment on above: Performed By: #### C BC ####[facility] Daursiptli7849 [place] [address]DrWesley Navarro MONO # 0.8 103/ul Normal 0.3-0.8 [facility] Comment on above: Performed By: #### C BC ####[facility] Svptipwigo5853 [place] [address]DrWesley Navarro Monocytes/100 WBC (Bld) 3.8 % Normal 1.7-12.0 [facility] Comment on above: Performed By: #### C BC ####[facility] Lojuhpzfwy68[address] [place], [place] [address]DrWesley Navarro NEUT # 17.9 103/ul Critically high 1.4-6.5 [facility] Comment on above: Performed By: #### C BC ####[facility] Mggwkhhxnw22[address] [place], [place] [address]DrWesley Navarro Neutrophils/100 WBC (Bld) 88.4 % Critically high 43.0-75.0 [facility] Comment on above: Performed By: #### C BC ####[facility] Ccaqyyerti[address] [place], [place] [address]DrWesley Navarro Platelet mean volume (Bld) [Entitic vol] 9.7 fL Normal 9.5-13.5 [facility] Comment on above: Performed By: #### C BC ####[facility] Dehpauobiv24[address] [place], [place] [address]DrWesley Navarro PLT 211 103/ul Normal 150-450 [facility] Comment on above: Performed By: #### C BC ####[facility] Jvndccrcqu1971 [place] [phone] Navarro RBC 4.69 106/ul Critically low 4.70-6.10 [facility] Comment on above: Performed By: #### C BC ####[facility] Phoifueywb1396 [place] [address]Dr. Emelina Navarro WBC 20.2 103/ul Critically high 4.0-11.0 [facility] Comment on above: Performed By: #### C BC ####[facility] Zbnzgoxzpo8076 [place] [address]DrWesley Navarro PROF 14(COMP METB)on 022 Albumin [Mass/Vol] 2.9 g/dL Critically low 3.4-5.0 [facility] Comment on above: Performed By: #### C MP ####[facility] Txytzhqklc68[address] [place], [place] [address]DrWesley Navarro Albumin/Globulin [Mass ratio] 0.7 {ratio} Normal [facility] Comment on above: Performed By: #### C MP ####[facility] Vkxlihxxwa586[address] [place], [place] [address]Dr. Emelina Navarro ALP [Catalytic activity/Vol] 77 U/L Normal 46-116 [facility] Comment on above: Performed By: #### C MP ####[facility] Fiolhgkbnr8197[address] [place], [place] [address]Dr. Emelina Navarro ALT [Catalytic activity/Vol] 26 U/L Normal 16-63 [facility] Comment on above: Performed By: #### C MP ####[facility] Ywcgljamaj726[address] [place], [place] [address]DrWesley Navarro Anion gap [Moles/Vol] 13.2 mmol/L Normal [facility] Comment on above: Performed By: #### C MP ####[facility] Wrvgzpsatf9647[address] [place], [place] [address]Dr. Emelina Navarro AST [Catalytic activity/Vol] 18 U/L Normal 15-37 [facility] Comment on above: Performed By: #### C MP ####[facility] Oslbeblasj6616[address] [place], [place] [address]Dr. Emelina Navarro Bilirubin [Mass/Vol] 0.8 mg/dL Normal 0.2-1.0 [facility] Comment on above: Performed By: #### C MP ####[facility] Sggabhydod6077 [place] [address]Dr. Emelina Navarro Calcium [Mass/Vol] 8.4 mg/dL Critically low 8.5-10.1 [facility] Comment on above: Performed By: #### C MP ####[facility] Vdubdpgbnt1832 [place] [address]Dr. Emelina Navarro Chloride [Moles/Vol] 101 mmol/L Normal 98-107 [facility] Comment on above: Performed By: #### C MP ####[facility] Rhyskkpdcn713[address] [place], [place] [address]Dr. Emelina Navarro CO2 [Moles/Vol] 27.9 mmol/L Normal 21.0-32.0 [facility] Comment on above: Performed By: #### C MP ####[facility] Melvipqxmg704[address] [place], [place] [address]Dr. Emelina Ramon Creatinine [Mass/Vol] 1.90 mg/dL Critically high 0.70-1.30 [facility] Comment on above: Performed By: #### C MP ####[facility] Jngwopnvra39[address] [place], [place] [address]Dr. Emelina Navarro EGFR-AF TOGOLESE 43 mL/min/1.73m2 Critically low >=60 [facility] Comment on above: Performed By: #### C MP ####[facility] Sczgpdguwr7227[address] [place], [place] [address]Dr. Emelina Ramon EGFR-NON AF TOGOLESE 36 mL/min/1.73m2 Critically low >=60 [facility] Comment on above: Performed By: #### C MP ####[facility] Xavfqcsads9135[address] [place], [place] [address]Dr. Emelina Ramon Globulin (S) [Mass/Vol] 3.9 g/dL Normal [facility] Comment on above: Performed By: #### C MP ####[facility] Ucxgrsezyl6337[address] [place], [place] [address]Dr. Awildanitza Ramon Glucose [Mass/Vol] 175 mg/dL Critically high 74-106 [facility] Comment on above: Performed By: #### C MP ####[facility] Lcuqeqknse4034 [place] [address]Dr. Emelina Navarro Potassium [Moles/Vol] 4.1 mmol/L Normal 3.5-5.1 [facility] Comment on above: Performed By: #### C MP ####[facility] Xbjkwdbbqy5411 [place] [address]Dr. Emelina Navarro Protein [Mass/Vol] 6.8 g/dL Normal 6.4-8.2 [facility] Comment on above: Performed By: #### C MP ####[facility] Kxuchbwtjf8[address] [place], [place] [address]Dr. Emelina Navarro Sodium [Moles/Vol] 138 mmol/L Normal 136-145 [facility] Comment on above: Performed By: #### C MP ####[facility] Rdnmnakqcs735[address] [place], [place] [address]Dr. Emelina Navarro Urea nitrogen [Mass/Vol] 46.0 mg/dL Critically high 7.0-18.0 [facility] Comment on above: Performed By: #### C MP ####[facility] Mjtgjvjyed7[address] [place], [place] [address]Dr. Emelina Navarro Urea nitrogen/Creatinine [Mass ratio] 24.2 mg/mg Normal [facility] Comment on above: Performed By: #### C MP ####[facility] Vtzsfhiujg1417[address] [place], [place] [address]Dr. Emelina Navarro PROTIMEon 06-15-2022 INR Coag (PPP) [Relative time] 3.34 {INR} Normal [facility] Comment on above: Performed By: #### P T ####[facility] Gyzmrsvxki889[address] [place], [place] [address]Dr. Emelina Navarro INR GUIDELINES SEE BELOW Normal [facility] Comment on above: Result Comment: WENDY RED INR: 2.0 - 3.0 CONDITIONS NOT LISTED BELOW 2.5 - 3.5 FOR PROSTHETIC HEART VALVE REPLACEMENT 2.5 - 3.5 RECURRENT THROMBOSIS Performed By: #### P T ####[facility] Xyxpjwqlfp3441 [place] [address]Dr. Emelina Navarro PT Coag (PPP) [Time] 33.3 s Critically high 9.0-11.6 [facility] Comment on above: Performed By: #### P T ####[facility] Uzragmrzdq3891 [place] [address]Dr. Emelina Navarro CBC AUTO DIFFon 06-14-2022 BASO # 0.0 103/ul Normal 0.0-0.1 [facility] Comment on above: Performed By: #### C BC ####[facility] Atvmhclnrp83[address] [place], [place] [address]Dr. Emelina Navarro Basophils/100 WBC (Bld) 0.1 % Critically low 0.2-2.0 [facility] Comment on above: Performed By: #### C BC ####[facility] Dceupsoqah7214[address] [place], [place] [address]Dr. Emelina Navarro EO # 0.0 103/ul Normal 0.0-0.7 [facility] Comment on above: Performed By: #### C BC ####[facility] Xeqrldkuyi27[address] [place], [place] [address]Dr. Emelina Navarro Eosinophils/100 WBC (Bld) 0.0 % Critically low 0.9-7.0 [facility] Comment on above: Performed By: #### C BC ####[facility] Yqukxqbrqg5667[address] [place], [place] [address]Dr. Emelina Navarro Erythrocyte distribution width (RBC) [Ratio] 17.0 % Critically high 11.0-15.0 [facility] Comment on above: Performed By: #### C BC ####[facility] Rewtmkavin206[address] [place], [place] [address]DrWesley Navarro Hematocrit (Bld) [Volume fraction] 40.2 % Critically low 42.0-54.0 [facility] Comment on above: Performed By: #### C BC ####[facility] Qrbsqzncyf9[address] [place], [place] [address]Dr. Emelina Navarro Hemoglobin (Bld) [Mass/Vol] 13.0 g/dL Critically low 14.0-18.0 [facility] Comment on above: Performed By: #### C BC ####[facility] Creidcaxbi2427 [place] [address]DrWesley Navarro IG # 0.18 10e3/ul Critically high 0.00-0.[address] [facility] Comment on above: Performed By: #### C BC ####[facility] Hjxrrbvksy7090 [place] [address]DrWesley Navarro IG % 0.8 % Critically high 0.0-0.5 [facility] Comment on above: Performed By: #### C BC ####[facility] Wqmnbrdady5687 [place] [address]DrWesley Navarro LYMPH # 1.1 103/ul Critically low 1.2-3.8 [facility] Comment on above: Performed By: #### C BC ####[facility] Plrpnywaso4234 [place] [address]DrWesley Navarro Lymphocytes/100 WBC (Bld) 5.4 % Critically low 20.5-60.0 [facility] Comment on above: Performed By: #### C BC ####[facility] Vsvqroiwbq1164 [place] [address]DrWesley Navarro MANUAL DIFF REQ NO Normal [facility] Comment on above: Performed By: #### C BC ####[facility] Jqbkslicha5248 [place] [address]DrWesley Navarro MCH (RBC) [Entitic mass] 28.4 pg Normal 25.9-34.0 [facility] Comment on above: Performed By: #### C BC ####[facility] Nzeedealio3958 [place] [phone] Navarro MCHC (RBC) [Mass/Vol] 32.3 g/dL Normal 29.9-35.2 [facility] Comment on above: Performed By: #### C BC ####[facility] Uhinczmvin2126 [place] [phone] Navarro MCV (RBC) [Entitic vol] 88.0 fL Normal 80.0-94.0 [facility] Comment on above: Performed By: #### C BC ####[facility] Letwwdascv3453 [place] [phone]. Emelina Navarro MONO # 0.6 103/ul Normal 0.3-0.8 [facility] Comment on above: Performed By: #### C BC ####[facility] Mcvfclaqfe3900 [place] [phone]. Emelina Navarro Monocytes/100 WBC (Bld) 3.0 % Normal 1.7-12.0 [facility] Comment on above: Performed By: #### C BC ####[facility] Xrxaghmcqq3505 [place] [phone]. Emelina Navarro NEUT # 19.3 103/ul Critically high 1.4-6.5 [facility] Comment on above: Performed By: #### C BC ####[facility] Senaqjrcgg7542 [place] [address]Dr. Emelina Navarro Neutrophils/100 WBC (Bld) 90.7 % Critically high 43.0-75.0 [facility] Comment on above: Performed By: #### C BC ####[facility] Bygwkynksv9103 [place] [phone]. Emelina Navarro Platelet mean volume (Bld) [Entitic vol] 10.6 fL Normal 9.5-13.5 [facility] Comment on above: Performed By: #### C BC ####[facility] Zyfonxofcv6445 [place] [phone]. Emelina Navarro PLT 191 103/ul Normal 150-450 [facility] Comment on above: Performed By: #### C BC ####[facility] Mdfipsabfj3773 [place] [phone]. Emelina Navarro RBC 4.57 106/ul Critically low 4.70-6.10 [facility] Comment on above: Performed By: #### C BC ####[facility] Oxrpsesyjj7099 [place] [phone]. Emelina Navarro WBC 21.3 103/ul Critically high 4.0-11.0 [facility] Comment on above: Performed By: #### C BC ####[facility] Ryfpukixtg2773 [place] [address]Dr. Emelina Navarro PROF 14(COMP METB)on 022 Albumin [Mass/Vol] 2.5 g/dL Critically low 3.4-5.0 [facility] Comment on above: Performed By: #### C MP ####[facility] Uprjapynvv3951 [place] [address]Dr. Emelina Navarro Albumin/Globulin [Mass ratio] 0.6 {ratio} Normal [facility] Comment on above: Performed By: #### C MP ####[facility] Qivyzqfikl14[address] [place], [place] [address]Dr. Emelina Navarro ALP [Catalytic activity/Vol] 77 U/L Normal 46-116 [facility] Comment on above: Performed By: #### C MP ####[facility] Vkrckxvekp47364[address] [place], [place] [address]Dr. Emelina Navarro ALT [Catalytic activity/Vol] 25 U/L Normal 16-63 [facility] Comment on above: Performed By: #### C MP ####[facility] Rnvmfmyxgi299[address] [place], [place] [address]Dr. Emelina Navarro Anion gap [Moles/Vol] 12.5 mmol/L Normal [facility] Comment on above: Performed By: #### C MP ####[facility] Xtdfewwatl[address] [place], [place] [address]Dr. Emelina Navarro AST [Catalytic activity/Vol] 34 U/L Normal 15-37 [facility] Comment on above: Performed By: #### C MP ####[facility] Qrfriiyndk64[address] [place], [place] [address]Dr. Emelina Navarro Bilirubin [Mass/Vol] 0.9 mg/dL Normal 0.2-1.0 [facility] Comment on above: Performed By: #### C MP ####[facility] Yagaixpajq16[address] [place], [place] [address]Dr. Emelina Navarro Calcium [Mass/Vol] 8.1 mg/dL Critically low 8.5-10.1 [facility] Comment on above: Performed By: #### C MP ####[facility] Czsbqwyyns07[address] [place] [address]Dr. Emelina Navarro Chloride [Moles/Vol] 101 mmol/L Normal 98-107 [facility] Comment on above: Performed By: #### C MP ####[facility] Vcxjxadvzv5288 [place] [phone]. Emelina Navarro CO2 [Moles/Vol] 24.8 mmol/L Normal 21.0-32.0 [facility] Comment on above: Performed By: #### C MP ####[facility] Lsuutnavok7251 [place] [address]Dr. Emelina Ramon Creatinine [Mass/Vol] 1.93 mg/dL Critically high 0.70-1.30 [facility] Comment on above: Performed By: #### C MP ####[facility] Hdqmhvsple7[address] [place], [place] [address]Dr. Awildanitza Ramon EGFR-AF TOGOLESE 42 mL/min/1.73m2 Critically low >=60 [facility] Comment on above: Performed By: #### C MP ####[facility] Ozvhwensnk[address] [place], [place] [address]Dr. Emelina Ramon EGFR-NON AF TOGOLESE 35 mL/min/1.73m2 Critically low >=60 [facility] Comment on above: Performed By: #### C MP ####[facility] Kcertgqrhg8047 [place] [address]Dr. Emelina Ramon Globulin (S) [Mass/Vol] 3.9 g/dL Normal [facility] Comment on above: Performed By: #### C MP ####[facility] [facility] [address] [place] [address]Dr. Emelina Navarro Glucose [Mass/Vol] 236 mg/dL Critically high 74-106 [facility] Comment on above: Performed By: #### C MP ####[facility] [address] [place] [address]Dr. Emelina Navarro Potassium [Moles/Vol] 5.3 mmol/L Critically high 3.5-5.1 [facility] Comment on above: Performed By: #### C MP ####[facility] Sagpeejdfg[address] [place] [address]Dr. Emelina Navarro Protein [Mass/Vol] 6.4 g/dL Normal 6.4-8.2 [facility] Comment on above: Performed By: #### C MP ####[facility] Vccouvukrt[address] [place], [place] [address]Dr. Emelina Navarro Sodium [Moles/Vol] 133 mmol/L Critically low 136-145 [facility] Comment on above: Performed By: #### C MP ####[facility] Umcrvubmoh[address] [place], [place] [address]Dr. Emelina Navarro Urea nitrogen [Mass/Vol] 43.0 mg/dL Critically high 7.0-18.0 [facility] Comment on above: Performed By: #### C MP ####[facility] Iupwctjqmc[address] [place], [place] [address]Dr. Emelina Navarro Urea nitrogen/Creatinine [Mass ratio] 22.3 mg/mg Normal [facility] Comment on above: Performed By: #### C MP ####[facility] Atkrihehoi[address] [place], [place] [address]Dr. Emelina Navarro PROTIMEon 06-14-2022 INR Coag (PPP) [Relative time] 4.39 {INR} Critically high [facility] Comment on above: Performed By: #### P T ####[facility] Aawlq[address]jke4[address] [place], [place] [address]Dr. Emelina Navarro INR GUIDELINES SEE BELOW Normal [facility] Comment on above: Result Comment: WENDY RED INR: 2.0 - 3.0 CONDITIONS NOT LISTED BELOW 2.5 - 3.5 FOR PROSTHETIC HEART VALVE REPLACEMENT 2.5 - 3.5 RECURRENT THROMBOSIS Performed By: #### P T ####[facility] Cziirmgdal[address] [place], [place] [address]Dr. Emelina Navarro PT Coag (PPP) [Time] 43.0 s Critically high 9.0-11.6 [facility] Comment on above: Performed By: #### P T ####[facility] Izkmgvnnxb36[address] [place], [place] [address]Dr. Emelina Navarro XR CHEST 1 Von 06-14-2022 XR CHEST 1 V Normal [facility] BNPon 06-13-2022 Natriuretic peptide B (Bld) [Mass/Vol] 9889.0 pg/mL Critically high <=900.0 [facility] Comment on above: Performed By: #### B MP, BNP ####[facility] Fqembcgjuc[address] [place], [place] [address]Dr. Emelina Ramon CBC AUTO DIFFon 06-13-2022 BASO # 0.0 103/ul Normal 0.0-0.1 [facility] Comment on above: Performed By: #### C BC ####[facility] Vvlrkniwnm[address] [place], [place] [address]Dr. Emelina Navarro Basophils/100 WBC (Bld) 0.1 % Critically low 0.2-2.0 [facility] Comment on above: Performed By: #### C BC ####[facility] Qunpdlmcwh9[address] [place], [place] [address]Dr. Emelina Navaror EO # 0.0 103/ul Normal 0.0-0.7 [facility] Comment on above: Performed By: #### C BC ####[facility] Qvphnuptje28[address] [place], [place] [address]Dr. Emelina Navarro Eosinophils/100 WBC (Bld) 0.0 % Critically low 0.9-7.0 [facility] Comment on above: Performed By: #### C BC ####[facility] Bnnhhgergu09[address] [place], [place] [address]Dr. Emelina Navarro Erythrocyte distribution width (RBC) [Ratio] 17.4 % Critically high 11.0-15.0 [facility] Comment on above: Performed By: #### C BC ####[facility] Omsxavedhd[address] [place], [place] [address]Dr. Emelina Navarro Hematocrit (Bld) [Volume fraction] 43.5 % Normal 42.0-54.0 [facility] Comment on above: Performed By: #### C BC ####[facility] Ed[address]pukons[address] [place] [phone]. Emelina Navarro Hemoglobin (Bld) [Mass/Vol] 14.1 g/dL Normal 14.0-18.0 [facility] Comment on above: Performed By: #### C BC ####[facility] Xftcbppsvh76[address] [place] [phone]. Emelina Navarro IG # 0.15 10e3/ul Critically high 0.00-0.[address] [facility] Comment on above: Performed By: #### C BC ####[facility] [address]rvbc[address] [place] [address]Dr. Emelina Navarro IG % 0.8 % Critically high 0.0-0.5 [facility] Comment on above: Performed By: #### C BC ####[facility] [address]wixfqsaet[address] [place] [address]Dr. Emelina Navarro LYMPH # 0.9 103/ul Critically low 1.2-3.8 [facility] Comment on above: Performed By: #### C BC ####[facility] J[address]dzitgr[address] [place] [address]Dr. Emelina Navarro Lymphocytes/100 WBC (Bld) 5.0 % Critically low 20.5-60.0 [facility] Comment on above: Performed By: #### C BC ####[facility] [address]rfdag[address] [place] [address]Dr. Emelina Navarro MANUAL DIFF REQ NO Normal [facility] Comment on above: Performed By: #### C BC ####[facility] Kl[address]frzh[address] [place] [address]Dr. Emelina Navarro MCH (RBC) [Entitic mass] 28.8 pg Normal 25.9-34.0 [facility] Comment on above: Performed By: #### C BC ####[facility] Xmxvyysftz[address] [place], [place] [address]Dr. Emelina Navarro MCHC (RBC) [Mass/Vol] 32.4 g/dL Normal 29.9-35.2 [facility] Comment on above: Performed By: #### C BC ####[facility] Wiiqlejrzp98[address] [place] [phone]. Emelina Navarro MCV (RBC) [Entitic vol] 89.0 fL Normal 80.0-94.0 [facility] Comment on above: Performed By: #### C BC ####[facility] Ak[address]wyumab[address] [place] [phone]. Emelina Navarro MONO # 0.1 103/ul Critically low 0.3-0.8 [facility] Comment on above: Performed By: #### C BC ####[facility] Dzedtmtexb58[address] [place] [phone]. Emelina Navarro Monocytes/100 WBC (Bld) 0.5 % Critically low 1.7-12.0 [facility] Comment on above: Performed By: #### C BC ####[facility] Dmtlvohnmh[address] [place], [place] [id number]. Emelina Navarro NEUT # 17.4 103/ul Critically high 1.4-6.5 [facility] Comment on above: Performed By: #### C BC ####[facility] Ibclytrtvg38[address] [place], [place] [address]Dr. Emelina Navarro Neutrophils/100 WBC (Bld) 93.6 % Critically high 43.0-75.0 [facility] Comment on above: Performed By: #### C BC ####[facility] Fhsiivosbu6[address] [place], [place] [address]Dr. Emelina Navarro Platelet mean volume (Bld) [Entitic vol] 9.8 fL Normal 9.5-13.5 [facility] Comment on above: Performed By: #### C BC ####[facility] Mtewlsbkqi7[address] [place] [phone]. Emelina Navarro PLT 186 103/ul Normal 150-450 [facility] Comment on above: Performed By: #### C BC ####[facility] Brgvrpdamf[address] [place], [place] [address]Dr. Emelina Navarro RBC 4.89 106/ul Normal 4.70-6.10 [facility] Comment on above: Performed By: #### C BC ####[facility] Nfc[address]rcuki[address] [place] [address]Dr. Emelina Ramon WBC 18.6 103/ul Critically high 4.0-11.0 [facility] Comment on above: Performed By: #### C BC ####[facility] Xvduhdnved[address] [place] [address]Dr. Emelina Ramon CT CHEST WO CONon 06-13-2022 CT CHEST WO CON Normal [facility] CULTURE SPUTUMon 06-13-2022 CULTURE SPUTUM Culture Observations : NORMAL RESPIRATORY CEDRIC. Normal [facility] Comment on above: Performed By: #### S PUTCX ####[facility] Bibkdwqgap[address] [place], [place] [address]Dr. Emelina Navarro ECHOCARDIO M/2D COMPLETEon 0 06-13-2022 ECHOCARDIO M/2D COMPLETE Normal [facility] POINT OF CARE GLUCOSEon 05-20 Glucose [Mass/Vol] 255 mg/dL Critically high 74-106 [facility] Comment on above: Performed By: #### P OCGLUC ####[facility] Wjirkcktwz5[address] [place], [place] [address]Dr. Emelina Navarro Glucose [Mass/Vol] 408 mg/dL Critically high 74-106 [facility] Comment on above: Performed By: #### P OCGLUC ####[facility] [address]oom[address]lao[address] [place] [address]Dr. Emelina Navarro PROF CHEM 8 (BAS METB)on Anion gap [Moles/Vol] 14.7 mmol/L Normal [facility] Comment on above: Performed By: #### B MP, BNP ####[facility] [address]azlw[address] [place] [address]Dr. Emelina Navarro Calcium [Mass/Vol] 8.3 mg/dL Critically low 8.5-10.1 [facility] Comment on above: Performed By: #### B MP, BNP ####[facility] Mvpfyoolir[address] [place] [address]Dr. Emelina Navarro Chloride [Moles/Vol] 102 mmol/L Normal 98-107 [facility] Comment on above: Performed By: #### B MP, BNP ####[facility] Kdcgiizrmc[address] [place] [phone]. Emelina Navarro CO2 [Moles/Vol] 26.0 mmol/L Normal 21.0-32.0 [facility] Comment on above: Performed By: #### B MP, BNP ####[facility] V[address]dngrxvx[address] [place] [address]Dr. Emelina Navarro Creatinine [Mass/Vol] 2.07 mg/dL Critically high 0.70-1.30 [facility] Comment on above: Performed By: #### B MP, BNP ####[facility] Joljkednzb[address] [place] [address]Dr. Awildanitza Ramon EGFR-AF TOGOLESE 39 mL/min/1.73m2 Critically low >=60 [facility] Comment on above: Performed By: #### B MP, BNP ####[facility] Lmyqqayxpq[address] [place], [place] [address]Dr. Emelina Navarro EGFR-NON AF TOGOLESE 32 mL/min/1.73m2 Critically low >=60 [facility] Comment on above: Performed By: #### B MP, BNP ####[facility] Ucytfwvnde14[address] [place], [place] [address]Dr. Emelina Navarro Glucose [Mass/Vol] 245 mg/dL Critically high 74-106 [facility] Comment on above: Performed By: #### B MP, BNP ####[facility] Jupswxvgrd75[address] [place], [place] [address]Dr. Emelina Navarro Potassium [Moles/Vol] 4.7 mmol/L Normal 3.5-5.1 [facility] Comment on above: Performed By: #### B MP, BNP ####[facility] Wtfrkwmzxs[address] [place] [address]Dr. Emelina Navarro Sodium [Moles/Vol] 138 mmol/L Normal 136-145 [facility] Comment on above: Performed By: #### B MP, BNP ####[facility] Hmhgglfcha[address] [place], [place] [address]Dr. Emelina Navarro Urea nitrogen [Mass/Vol] 30.0 mg/dL Critically high 7.0-18.0 [facility] Comment on above: Performed By: #### B MP, BNP ####[facility] Bj[address]ujcewvi[address] [place] [address]Dr. Emelina Navarro Urea nitrogen/Creatinine [Mass ratio] 14.5 mg/mg Normal [facility] Comment on above: Performed By: #### B MP, BNP ####[facility] Npqvzsetqa61[address] [place] [address]Dr. Emelina Navarro PROTIMEon 06-13-2022 INR Coag (PPP) [Relative time] 3.59 {INR} Normal [facility] Comment on above: Performed By: #### P T ####[facility] Xhglzvtlnn23[address] [place], [place] [address]Dr. Emelina Navarro INR GUIDELINES SEE BELOW Normal [facility] Comment on above: Result Comment: WENDY RED INR: 2.0 - 3.0 CONDITIONS NOT LISTED BELOW 2.5 - 3.5 FOR PROSTHETIC HEART VALVE REPLACEMENT 2.5 - 3.5 RECURRENT THROMBOSIS Performed By: #### P T ####[facility] Vnvaqmrjpg[address] [place], [place] [address]Dr. Emelina Navarro PT Coag (PPP) [Time] 35.7 s Critically high 9.0-11.6 [facility] Comment on above: Performed By: #### P T ####[facility] Nibdclzzqx360[address] [place], [place] [address]Dr. Emelina Navarro SPUTUM GRAM STAINon 06-13-20 COMMENTS Normal [facility] Comment on above: Performed By: #### S PUTGS ####[facility] Ysdggmljfv995[address] [place], [place] [address]Dr. Emelina Navarro DIPHTHEROIDS Normal [facility] Comment on above: Performed By: #### S PUTGS ####[facility] Ovrhgkdnfu4217[address] [place], [place] [address]Dr. Emelina Navarro EPITHELIALS <25 Normal [facility] Comment on above: Performed By: #### S PUTGS ####[facility] Frprsddqtf[address] [place], [place] [address]Dr. Emelina Navarro FUNGAL ELEMENTS Normal [facility] Comment on above: Performed By: #### S PUTGS ####[facility] Apwtxqaagj3[address] [place] [address]Dr. Emelina Navarro GRAM NEG BACILLI Normal [facility] Comment on above: Performed By: #### S PUTGS ####[facility] Kpciwepeck[address] [place] [address]Dr. Emelina Navarro GRAM NEG DIPPLOCOCCI Normal [facility] Comment on above: Performed By: #### S PUTGS ####[facility] Stqhajiuja[address] [place], [place] [address]Dr. Emelina Navarro GRAM POS BACILLI Normal [facility] Comment on above: Performed By: #### S PUTGS ####[facility] Hdgreegmyo458[address] [place], [place] [address]Dr. Emelina Navarro GRAM POSITIVE COCCI RARE Normal [facility] Comment on above: Performed By: #### S PUTGS ####[facility] Wlotljogju[address] [place], [place] [address]Dr. Emelina Navarro WBC (Bld) [#/Vol] 10*3/uL Normal [facility] Comment on above: Performed By: #### S PUTGS ####[facility] Mdtpekyetb104[address] [place], [place] [address]Dr. Emelina Navarro XR CHEST 1 Von 06-13-2022 XR CHEST 1 V Normal [facility] BNPon 06-12-2022 Natriuretic peptide B (Bld) [Mass/Vol] 6268.0 pg/mL Critically high <=900.0 [facility] Comment on above: Performed By: #### B SERVICE RIG OPERATOR, CMP ####[facility] Hzkwgquthw14[address] [place], [place] [address]Dr. Emelina Navarro CBC AUTO DIFFon 06-12-2022 BASO # 0.1 103/ul Normal 0.0-0.1 [facility] Comment on above: Performed By: #### C BC ####[facility] Qxjqnpcvcf056[address] [place], [place] [address]Dr. Emelina Navarro Basophils/100 WBC (Bld) 0.3 % Normal 0.2-2.0 [facility] Comment on above: Performed By: #### C BC ####[facility] Tsddtlopsm7[address] [place] [phone]. Emelina Navarro EO # 0.1 103/ul Normal 0.0-0.7 [facility] Comment on above: Performed By: #### C BC ####[facility] Keerrcnxtx360[address] [place] [address]Dr. Emelina Navarro Eosinophils/100 WBC (Bld) 0.4 % Critically low 0.9-7.0 [facility] Comment on above: Performed By: #### C BC ####[facility] Norowxmorn[address] [place] [address]Dr. Emelina Navarro Erythrocyte distribution width (RBC) [Ratio] 17.7 % Critically high 11.0-15.0 [facility] Comment on above: Performed By: #### C BC ####[facility] Uisjkyuqvc[address] [place], [place] [address]Dr. Emelina Navarro Hematocrit (Bld) [Volume fraction] 44.4 % Normal 42.0-54.0 [facility] Comment on above: Performed By: #### C BC ####[facility] Loyacjmwsf[address] [place], [place] [address]Dr. Emelina Navarro Hemoglobin (Bld) [Mass/Vol] 14.3 g/dL Normal 14.0-18.0 [facility] Comment on above: Performed By: #### C BC ####[facility] Kyuwdzciuu[address] [place], [place] [address]Dr. Emelina Navarro IG # 0.11 10e3/ul Critically high 0.00-0.[address] [facility] Comment on above: Performed By: #### C BC ####[facility] Qhqziczccz25[address] [place], [place] [address]Dr. Emelina Navarro IG % 0.5 % Normal 0.0-0.5 [facility] Comment on above: Performed By: #### C BC ####[facility] Udixsmpoaw[address] [place], [place] [address]Dr. Emelina Navarro LYMPH # 1.7 103/ul Normal 1.2-3.8 [facility] Comment on above: Performed By: #### C BC ####[facility] Nqawrtydxc95[address] [place] [phone]. Awildanitza Navarro Lymphocytes/100 WBC (Bld) 8.4 % Critically low 20.5-60.0 [facility] Comment on above: Performed By: #### C BC ####[facility] Yyajiowqqk4854 [place] [phone]. Emelina Navarro MANUAL DIFF REQ NO Normal [facility] Comment on above: Performed By: #### C BC ####[facility] Nockqdixqb7476 [place] [phone]. Emelina Navarro MCH (RBC) [Entitic mass] 28.3 pg Normal 25.9-34.0 [facility] Comment on above: Performed By: #### C BC ####[facility] Esnfejvgtw20[address] [place] [phone]. Emelina Navarro MCHC (RBC) [Mass/Vol] 32.2 g/dL Normal 29.9-35.2 [facility] Comment on above: Performed By: #### C BC ####[facility] Kmxhrpwvum8016 [place] [phone]. Emelina Navarro MCV (RBC) [Entitic vol] 87.9 fL Normal 80.0-94.0 [facility] Comment on above: Performed By: #### C BC ####[facility] Ltkueebfva9[address] [place] [phone]. Emelina Navarro MONO # 1.4 103/ul Critically high 0.3-0.8 [facility] Comment on above: Performed By: #### C BC ####[facility] Aooeykxjse22[address] [place] [phone]. Emelina Navarro Monocytes/100 WBC (Bld) 7.1 % Normal 1.7-12.0 [facility] Comment on above: Performed By: #### C BC ####[facility] Mydwhskbsv5528 [place] [phone]. Emelina Navarro NEUT # 16.8 103/ul Critically high 1.4-6.5 [facility] Comment on above: Performed By: #### C BC ####[facility] Lbvstkdwal2036 [place] [phone]. Emelina Navarro Neutrophils/100 WBC (Bld) 83.3 % Critically high 43.0-75.0 [facility] Comment on above: Performed By: #### C BC ####[facility] Ogrwtfoazi9263 [place] [phone]. Emelina Navarro Platelet mean volume (Bld) [Entitic vol] 10.0 fL Normal 9.5-13.5 [facility] Comment on above: Performed By: #### C BC ####[facility] Ixjrqnriwo3[address] [place] [phone]. Emelina Navarro PLT 227 103/ul Normal 150-450 [facility] Comment on above: Performed By: #### C BC ####[facility] I[address]qqqbakve[address] [place], [place] [address]Dr. Emelina Navarro RBC 5.05 106/ul Normal 4.70-6.10 [facility] Comment on above: Performed By: #### C BC ####[facility] Wkfezcawfo5124 [place] [phone]. Emelina Navarro WBC 20.2 103/ul Critically high 4.0-11.0 [facility] Comment on above: Performed By: #### C BC ####[facility] [address]psbkvwcul[address] [place], [place] [address]Dr. Emelina Navarro CULTURE BLOODon 06-12-2022 Microscopic examination of blood, culture Culture Observations: NO GROWTH AT 5 DAYS. Normal [facility] Comment on above: Performed By: #### B LDCX2 ####[facility] Imqaqgdyjz9904 [place] [phone]. Emelina Navarro Microscopic examination of blood, culture Culture Observations: NO GROWTH AT 5 DAYS. Normal [facility] Comment on above: Performed By: #### B LDCX1 ####[facility] Tggppqcflj037[address] [place] [phone]. Emelina Ramon [facility] ([facility]on 05-20 SARS-CoV-2 (COVID-19) RNA RADHA+probe Ql (Unsp spec) Not detected Normal NOT DETECTED [facility] Comment on above: Result Comment: When [...] for this test is supported by the [place] of Health and Human Service's declaration that [...] be used). Performed By: #### C VDTB ####[facility] Ihulygaxwk[address] [place], [place] [address]Dr. Emelina Navarro ER URINE PROFILEon 2 Bilirubin Ql (U) Negative Normal NEGATIVE [facility] Comment on above: Performed By: #### E RUR ####[facility] Czdbtoifrb97[address] [place], [place] [address]Dr. Emelina Navarro Clarity (U) CLEAR Normal CLEAR [facility] Comment on above: Performed By: #### E RUR ####[facility] Xgvqtevmuh35[address] [place], [place] [address]Dr. Emelina Navarro Color (U) YELLOW Normal YELLOW [facility] Comment on above: Performed By: #### E RUR ####[facility] Yqebjjpnec08[address] [place], [place] [address]Dr. Emelina Navarro ERUAHD A micrscopic examina tion will be performed if indicated. Normal [facility] Comment on above: Performed By: #### E RUR ####[facility] Axvgieyzio[address] [place], [place] [address]Dr. Emelina Navarro Glucose Ql (U) >1000 Abnormal NEGATIVE [facility] Comment on above: Performed By: #### E RUR ####[facility] Qekrppqvsa[address] [place] [address]Dr. Emelina Navarro Hemoglobin Ql (U) Negative Normal NEGATIVE [facility] Comment on above: Performed By: #### E RUR ####[facility] Xnjelechzo7660 [place] [address]Dr. Emelina Navarro Ketones Ql (U) Negative Normal NEGATIVE [facility] Comment on above: Performed By: #### E RUR ####[facility] Kqfxdgusws[address] [place], [place] [address]Dr. Emelina Ramon LEUKOCYTES Negative Normal NEGATIVE [facility] Comment on above: Performed By: #### E RUR ####[facility] Wqxrautcdo032[address] [place], [place] [address]Dr. Emelina Navarro Nitrite Ql (U) Negative Normal NEGATIVE [facility] Comment on above: Performed By: #### E RUR ####[facility] Nzetonealj7[address] [place], [place] [address]Dr. Emelina Navarro pH (U) 6.0 [pH] Normal 5-9 [facility] Comment on above: Performed By: #### E RUR ####[facility] Xwhilfbgfz20[address] [place], [place] [address]Dr. Emelina Navarro SPEC GRAVITY 1.010 Normal 1.005-<=1. 025 [facility] Comment on above: Performed By: #### E RUR ####[facility] Zmhbeuyysq5239[address] [place], [place] [address]Dr. Emelina Ramon UA PROTEIN Negative Normal NEGATIVE/ TRACE [facility] Comment on above: Performed By: #### E RUR ####[facility] Bijssnnofo79[address] [place], [place] [address]Dr. Emelina Navarro UR MICRO IND NOT INDICATED Normal [facility] Comment on above: Performed By: #### E RUR ####[facility] Ibwijhkvta927[address] [place], [place] [address]Dr. Emelina Navarro Urobilinogen Qn (U) 1.0 {Ashley'U}/dL Normal 0.2 - 1. 0 [facility] Comment on above: Performed By: #### E RUR ####[facility] Imxcuzwmqp[address] [place] [address]Dr. Emelina Navarro LACTATE/LACTIC ACIDon 2021 Lactate [Moles/Vol] 1.2 mmol/L Normal 0.4-1.9 [facility] Comment on above: Performed By: #### L ACT ####[facility] Drfmylnisz75[address] [place] [address]Dr. Emelina Navarro PROF 14(COMP METB)on 022 Albumin [Mass/Vol] 3.4 g/dL Normal 3.4-5.0 [facility] Comment on above: Performed By: #### B SERVICE RIG OPERATOR, CMP ####[facility] Yzqkbtcjvs[address] [place], [place] [address]Dr. Emelina Navarro Albumin/Globulin [Mass ratio] 0.8 {ratio} Normal [facility] Comment on above: Performed By: #### B SERVICE RIG OPERATOR, CMP ####[facility] Lozwcvcfxx[address] [place], [place] [address]Dr. Emelina Navarro ALP [Catalytic activity/Vol] 100 U/L Normal 46-116 [facility] Comment on above: Performed By: #### B SERVICE RIG OPERATOR, CMP ####[facility] Itojjosqqu917[address] [place], [place] [address]Dr. Emelina Navarro ALT [Catalytic activity/Vol] 26 U/L Normal 16-63 [facility] Comment on above: Performed By: #### B SERVICE RIG OPERATOR, CMP ####[facility] Xyjurppckr[address] [place], [place] [address]Dr. Emelina Navarro Anion gap [Moles/Vol] 11.3 mmol/L Normal [facility] Comment on above: Performed By: #### B SERVICE RIG OPERATOR, CMP ####[facility] Xcrpwsubpr64[address] [place], [place] [address]Dr. Emelina Navarro AST [Catalytic activity/Vol] 19 U/L Normal 15-37 [facility] Comment on above: Performed By: #### B SERVICE RIG OPERATOR, CMP ####[facility] Pnychynyzy9284 [place] [phone]. Emelina Navarro Bilirubin [Mass/Vol] 1.4 mg/dL Critically high 0.2-1.0 [facility] Comment on above: Performed By: #### B SERVICE RIG OPERATOR, CMP ####[facility] Ltffxxxbqk[address] [place], [place] [address]Dr. Emelina Navarro Calcium [Mass/Vol] 9.1 mg/dL Normal 8.5-10.1 [facility] Comment on above: Performed By: #### B SERVICE RIG OPERATOR, CMP ####[facility] Vffvxirxey[address] [place], [place] [address]Dr. Emelina Navarro Chloride [Moles/Vol] 103 mmol/L Normal 98-107 [facility] Comment on above: Performed By: #### B SERVICE RIG OPERATOR, CMP ####[facility] Iwejdklnvm110[address] [place], [place] [address]Dr. Emelina Navarro CO2 [Moles/Vol] 27.8 mmol/L Normal 21.0-32.0 [facility] Comment on above: Performed By: #### B SERVICE RIG OPERATOR, CMP ####[facility] Epcdebzbpu[address] [place], [place] [address]Dr. Emelina Navarro Creatinine [Mass/Vol] 1.75 mg/dL Critically high 0.70-1.30 [facility] Comment on above: Performed By: #### B SERVICE RIG OPERATOR, CMP ####[facility] Fhopufqgug24[address] [place], [place] [address]Dr. Emelina Navarro EGFR-AF TOGOLESE 47 mL/min/1.73m2 Critically low >=60 [facility] Comment on above: Performed By: #### B SERVICE RIG OPERATOR, CMP ####[facility] Baapcizynl[address]18[address] [place], [place] [address]Dr. Emelina Ramon EGFR-NON AF TOGOLESE 39 mL/min/1.73m2 Critically low >=60 [facility] Comment on above: Performed By: #### B SERVICE RIG OPERATOR, CMP ####[facility] Klevmvwveb2711[address] [place], [place] [address]Dr. Emelina Navarro Globulin (S) [Mass/Vol] 4.1 g/dL Normal [facility] Comment on above: Performed By: #### B SERVICE RIG OPERATOR, CMP ####[facility] Pyhhlbmrae[address] [place] [address]Dr. Awildanitza Ramon Glucose [Mass/Vol] 120 mg/dL Critically high 74-106 [facility] Comment on above: Performed By: #### B SERVICE RIG OPERATOR, CMP ####[facility] Ygrthxtewx4162 [place] [address]Dr. Emelina Navarro Potassium [Moles/Vol] 4.1 mmol/L Normal 3.5-5.1 [facility] Comment on above: Performed By: #### B SERVICE RIG OPERATOR, CMP ####[facility] Oaknowxswx3215[address] [place], [place] [address]Dr. Emelina Navarro Protein [Mass/Vol] 7.5 g/dL Normal 6.4-8.2 [facility] Comment on above: Performed By: #### B SERVICE RIG OPERATOR, CMP ####[facility] Ckaiebmfac274[address] [place], [place] [address]Dr. Emelina Navarro Sodium [Moles/Vol] 138 mmol/L Normal 136-145 [facility] Comment on above: Performed By: #### B SERVICE RIG OPERATOR, CMP ####[facility] Ywasbiclgr9210[address] [place], [place] [address]Dr. Emelina Navarro Urea nitrogen [Mass/Vol] 24.0 mg/dL Critically high 7.0-18.0 [facility] Comment on above: Performed By: #### B SERVICE RIG OPERATOR, CMP ####[facility] Bqzvbcmgsv3987[address] [place], [place] [address]Dr. Emelina Navarro Urea nitrogen/Creatinine [Mass ratio] 13.7 mg/mg Normal [facility] Comment on above: Performed By: #### B SERVICE RIG OPERATOR, CMP ####[facility] Jtxndgzqjj3270[address] [place], [place] [address]Dr. Emelina Navarro SPUTUM CULTUREon 05-11-2022 Epithelial cells LM Ql (Urine sed) Few Normal [facility] Comment on above: Performed By: #### C XSPTUM ####[facility] Qglqjkhfgy0887[address] [place], [place] [address]Dr. Emelina Navarro Gram Stain Evaluation Comment Normal [facility] Comment on above: Result Comment: This specimen is of good quality and is acceptable for routinebacterial culture. Performed By: #### C XSPTUM ####[facility] Pbqgovbttr348[address] [place], [place] [address]Dr. Emelina Navarro Lower Respiratory Culture Final report Normal [facility] Comment on above: Performed By: #### C XSPTUM ####[facility] Kzrvvvtsuf36[address] [place], [place] [address]Dr. Emelina Navarro Result 1 Comment Normal [facility] Comment on above: Result Comment: Few gram positive cocci Performed By: #### C XSPTUM ####[facility] Ejyoiwwesq338[address] [place], [place] [address]Dr. Emelina Navarro Result Comment: Rout ine respiratory cedric Result 2 Normal [facility] Comment on above: Performed By: #### C XSPTUM ####[facility] Fvzqbpasgy670[address] [place], [place] [address]Dr. Emelina Navarro Result 3 Normal [facility] Comment on above: Performed By: #### C XSPTUM ####[facility] Kgticexzio7[address] [place], [place] [address]Dr. Emelina Navarro Result 4 Normal [facility] Comment on above: Performed By: #### C XSPTUM ####[facility] Kxgfomikab[address] [place], [place] [address]Dr. Emelina Navarro White Blood Cells Few Normal [facility] Comment on above: Performed By: #### C XSPTUM ####[facility] Vryqznhqmq833[address] [place], [place] [address]Dr. Emelina Navarro CBC W MANUAL DIFFon 05-10-20 22 ATYPICAL LYMPH # Normal [facility] Comment on above: Performed By: #### C BCMAN ####[facility] Ukhqwyqamu612[address] [place], [place] [address]Dr. Emelina Navarro ATYPICAL LYMPH % Normal [facility] Comment on above: Performed By: #### C BCADRIAN ####[facility] Baakphntsl04[address] [place], [place] [address]DrWesley Navarro BAND # 0.5 103/ul Critically high 0.0-0.3 [facility] Comment on above: Performed By: #### C BCMAN ####[facility] Xkdgacoqkj7[address] [place] [address]Dr. Emelina Navarro BAND % 2 % Normal 0-5 [facility] Comment on above: Performed By: #### C BCMAN ####[facility] Izvhgcpumc8755 [place] [phone]. Emelina Navarro BASOM # 0.00 103/ul Normal 0.00-0.10 [facility] Comment on above: Performed By: #### C BCMAN ####[facility] Chhtpnixws0153 [place] [address]Dr. Emelina Navarro BASOM % 0.0 % Critically low 0.2-2.0 [facility] Comment on above: Performed By: #### C BCADRIAN ####[facility] Ouoqwgpkjb27[address] [place], [place] [address]Dr. Emelina Navarro BLAST # Normal [facility] Comment on above: Performed By: #### C BCADRIAN ####[facility] Uknudikwja[address] [place] [address]Dr. Emelina Navarro BLAST % Normal [facility] Comment on above: Performed By: #### C BCADRIAN ####[facility] Eybmlgoqbi5613 [place] [phone]. Emelina Navarro CORRECTED WBC Normal 4.0-11.0 [facility] Comment on above: Performed By: #### C BCADRIAN ####[facility] Ycdwhegwvx6412 [place] [phone]. Emelina Navarro EOS # 0.24 103/ul Normal 0.00-0.70 [facility] Comment on above: Performed By: #### C BCMAN ####[facility] Zdpgdsnmcj9755 [place] [address]Dr. Emelina Navarro EOS% 1.0 % Normal 0.9-7.0 [facility] Comment on above: Performed By: #### C BCADRIAN ####[facility] Wxpvpnvhst38[address] [place], [place] [address]Dr. Yilan Navarro HCT 41.6 % Critically low 42.0-54.0 [facility] Comment on above: Performed By: #### C PURVI ####[facility] Advsslphhb3236 [place] [phone]. Emelina Navarro HGB 13.2 g/dl Critically low 14.0-18.0 [facility] Comment on above: Performed By: #### C PURVI ####[facility] Juoxcdaftz5986 [place] [phone]. Emelina Navarro LYMPHM # 0.71 103/ul Critically low 1.20-3.80 [facility] Comment on above: Performed By: #### C PURVI ####[facility] Pzibmhnxwy9501 [place] [phone]. Emelina Navarro LYMPHM% 3.0 % Critically low 20.5-60.0 [facility] Comment on above: Performed By: #### C PURVI ####[facility] B[address]wjptss[address] [place], [place] [address]Dr. Emelina Navarro MCH 28.3 pg Normal 25.9-34.0 [facility] Comment on above: Performed By: #### C PURVI ####[facility] Bkdndazbfw4547 [place] [phone]. Emelina Navarro MCHC 31.7 g/dl Normal 29.9-35.2 [facility] Comment on above: Performed By: #### Poonam LOJA ####[facility] Ushztojcld[address] [place], [place] [address]Dr. Emelnia Navarro MCV 89.3 fL Normal 80.0-94.0 [facility] Comment on above: Performed By: #### C PURVI ####[facility] Jooxmpwykw2691 [place] [phone]. Emelina Navarro METAMYELOCYTE # Normal [facility] Comment on above: Performed By: #### C PURVI ####[facility] Lhthqxnawc8260 [place] [phone]. Emelina Navarro METAMYELOCYTE % Normal [facility] Comment on above: Performed By: #### C PURVI ####[facility] Ncdvifoijn9973 [place], [place] [address]Tf. Emelina Navarro MONOM# 0.24 103/ul Critically low 0.30-0.80 [facility] Comment on above: Performed By: #### C PURVI ####[facility] Pnlgxzccvf4563 [place], [place] [address]Cm. Emelina Navarro MONOM% 1.0 % Critically low 1.7-12.0 [facility] Comment on above: Performed By: #### C PURVI ####[facility] Qcjvkmdanu9194 [place] [phone]. Emelina Navarro MPV 9.7 fL Normal 9.5-13.5 [facility] Comment on above: Performed By: #### C PURVI ####[facility] Jneplbbfuq6588 [place] [phone]. Emelina Navarro MYELOCYTE # Normal [facility] Comment on above: Performed By: #### C PURVI ####[facility] Afvmzrojjw[address] [place], [place] [address]Dr. Emelina Navarro MYELOCYTE % Normal [facility] Comment on above: Performed By: #### C PURVI ####[facility] Sysgtdvkqx[address] [place], [place] [address]Dr. Emelina Navarro NRBC Normal [facility] Comment on above: Performed By: #### C PURVI ####[facility] Hivjhzjvsl0169 [place] [phone]. Emelina Navarro PLT 192 103/ul Normal 150-450 [facility] Comment on above: Performed By: #### C PURVI ####[facility] Izkpbdsebb9483 [place] [phone]. Emelina Navarro RBC 4.66 106/ul Critically low 4.70-6.10 [facility] Comment on above: Performed By: #### C PURVI ####[facility] Usjldusdib3534 [place] [phone]. Emelina Navarro RDW 16.1 % Critically high 11.0-15.0 [facility] Comment on above: Performed By: #### C BCMAN ####[facility] Znonlcbsox4952 [place] [phone]. Emelina Navarro SEG # 21.95 103/ul Critically high 1.40-6.[address] [facility] Comment on above: Performed By: #### C BCMAN ####[facility] Pimswzjdmy1077 [place] [phone]. Emelina Navarro SEG % 93.0 % Critically high 43.0-75.0 [facility] Comment on above: Performed By: #### C BCMAN ####[facility] Lcywgbzpbn6873 [place] [phone]. Emelina Navarro WBC 23.6 103/ul Critically high 4.0-11.0 [facility] Comment on above: Performed By: #### C PURVI ####[facility] Yqyuqttbqz7122 [place] [address]Dr. Emelina Ramon CRPon 05-10-2022 CRP 2.3 mg/dL Critically high <=1.0 [facility] Comment on above: Performed By: #### C MP, HSTROPN, CRP ####[facility] Nqeaapwcrq[address] [place] [address]Dr. Emelina Navarro DIGOXINon 05-10-2022 DIG 0.6 ng/mL Critically low 0.9-2.0 [facility] Comment on above: Performed By: #### D IG ####[facility] Dezrlsvrab4596 [place] [address]Dr. Emelina Navarro POINT OF CARE GLUCOSEon 04-20 Glucose [Mass/Vol] 246 mg/dL Critically high 74-106 [facility] Comment on above: Performed By: #### P OCGLUC ####[facility] Rxbtjdunrv[address] [place], [place] [address]Dr. Awildanitza Navarro PROF 14(COMP METB)on 022 Albumin [Mass/Vol] 3.0 g/dL Critically low 3.4-5.0 [facility] Comment on above: Performed By: #### C MP, HSTROPN, CRP ####[facility] Ygybbzwbtt5422 [place] [address]Dr. Emelina Navarro Albumin/Globulin [Mass ratio] 0.7 {ratio} Normal [facility] Comment on above: Performed By: #### C MP, HSTROPN, CRP ####[facility] Otqbqyesey[address] [place] [address]Dr. Emelina Navarro ALP [Catalytic activity/Vol] 95 U/L Normal 46-116 [facility] Comment on above: Performed By: #### C MP, HSTROPN, CRP ####[facility] Nigazdohzi13[address] [place] [address]Dr. Emelina Ramon ALT [Catalytic activity/Vol] 75 U/L Critically high 16-63 [facility] Comment on above: Performed By: #### C MP, HSTROPN, CRP ####[facility] Vzmsswjruo4292 [place] [address]Dr. Emelina Navarro Anion gap [Moles/Vol] 11.1 mmol/L Normal [facility] Comment on above: Performed By: #### C MP, HSTROPN, CRP ####[facility] Lamhopkszr[address] [place], [place] [address]Dr. Emelina Navarro AST [Catalytic activity/Vol] 25 U/L Normal 15-37 [facility] Comment on above: Performed By: #### C MP, HSTROPN, CRP ####[facility] Algisbjzuf9519 [place] [address]Dr. Awildanitza Navarro Bilirubin [Mass/Vol] 0.4 mg/dL Normal 0.2-1.0 [facility] Comment on above: Performed By: #### C MP, HSTROPN, CRP ####[facility] Tqrgmqkigs0145 [place] [address]Dr. Emelina Ramon Calcium [Mass/Vol] 8.3 mg/dL Critically low 8.5-10.1 [facility] Comment on above: Performed By: #### C MP, HSTROPN, CRP ####[facility] Paowzcpmgn5644 [place] [address]Dr. Emelina Navarro Chloride [Moles/Vol] 100 mmol/L Normal 98-107 [facility] Comment on above: Performed By: #### C MP, HSTROPN, CRP ####[facility] Qbxgczwkzz9367 [place] [address]Dr. Emelina Navarro CO2 [Moles/Vol] 28.6 mmol/L Normal 21.0-32.0 [facility] Comment on above: Performed By: #### C MP, HSTROPN, CRP ####[facility] Ccodatykib4359 [place] [address]Dr. Emelina Navarro Creatinine [Mass/Vol] 1.58 mg/dL Critically high 0.70-1.30 [facility] Comment on above: Performed By: #### C MP, HSTROPN, CRP ####[facility] Apmwunlfdw2762 [place] [address]Dr. Emelina Navarro EGFR-AF TOGOLESE 53 mL/min/1.73m2 Critically low >=60 [facility] Comment on above: Performed By: #### C MP, HSTROPN, CRP ####[facility] Bkwtrbaevz1223 [place] [address]Dr. Emelina Navarro EGFR-NON AF TOGOLESE 44 mL/min/1.73m2 Critically low >=60 [facility] Comment on above: Performed By: #### C MP, HSTROPN, CRP ####[facility] Tyfjzqmjqh6494 [place] [address]Dr. Emelina Navarro Globulin (S) [Mass/Vol] 4.2 g/dL Normal [facility] Comment on above: Performed By: #### C MP, HSTROPN, CRP ####[facility] Eyvnkdlqsw8275 [place] [address]Dr. Emelina Navarro Glucose [Mass/Vol] 230 mg/dL Critically high 74-106 [facility] Comment on above: Performed By: #### C MP, HSTROPN, CRP ####[facility] Otyggqnnba1287 [place] [address]Dr. Emelina Navarro Potassium [Moles/Vol] 4.7 mmol/L Normal 3.5-5.1 [facility] Comment on above: Performed By: #### C MP, HSTROPN, CRP ####[facility] Kbpvvmmols5547 [place] [address]Dr. Emelina Navarro Protein [Mass/Vol] 7.2 g/dL Normal 6.4-8.[address] [facility] Comment on above: Performed By: #### C MP, HSTROPN, CRP ####[facility] I[address]wg[address] [place], [place] [address]Dr. Emelina Navarro Sodium [Moles/Vol] 135 mmol/L Critically low 136-145 [facility] Comment on above: Performed By: #### C MP, HSTROPN, CRP ####[facility] Fuofgrxcdt65[address] [place], [place] [address]Dr. Emelina Navraro Urea nitrogen [Mass/Vol] 45.0 mg/dL Critically high 7.0-18.0 [facility] Comment on above: Performed By: #### C MP, HSTROPN, CRP ####[facility] Bexqsjcydb37[address] [place], [place] [address]Dr. Emelina Navarro Urea nitrogen/Creatinine [Mass ratio] 28.5 mg/mg Normal [facility] Comment on above: Performed By: #### C MP, HSTROPN, CRP ####[facility] Oqyfbbryhf8502 [place] [address]Dr. Emelina Navarro PROTIMEon 05-10-2022 INR Coag (PPP) [Relative time] 2.93 {INR} Normal [facility] Comment on above: Performed By: #### P T ####[facility] Teagzapane[address] [place], [place] [address]Dr. Emelina Navarro INR GUIDELINES SEE BELOW Normal [facility] Comment on above: Result Comment: WENDY RED INR: 2.0 - 3.0 CONDITIONS NOT LISTED BELOW 2.5 - 3.5 FOR PROSTHETIC HEART VALVE REPLACEMENT 2.5 - 3.5 RECURRENT THROMBOSIS Performed By: #### P T ####[facility] Pexhpzdamr46[address] [place], [place] [address]Dr. Emelina Navarro PT Coag (PPP) [Time] 29.5 s Critically high 9.0-11.6 [facility] Comment on above: Performed By: #### P T ####[facility] Ebipnrtfos[address] [place], [place] [address]Dr. Emelina Navarro TROPONIN, HIGH SENSITIVITYon 05-10-2022 HSTROP 38.3 pg/mL Normal 4.0-76.1 [facility] Comment on above: Result Comment: CUT- OFF POINTS HAVE BEEN ESTABLISHED BASED ON THE FOURTH UNIVERSAL DEFINITIONS OF MYOCARDIALINFARCTION. THE UPPER REFERENCE LIMIT (URL) OF TROPONIN, DEFINED THE 99TH PERCENTILE OFcTnI DISTRIBUTION IN A REFERENCE POPULATION, HAS BEEN CONFIRMED THE DECISION THRESHOLDFOR OR DIAGNOSIS. Performed By: #### C MP, HSTROPN, CRP ####[facility] Bvababzztp[address] [place], [place] [address]Dr. Emelina Navarro CBC AUTO DIFFon 05-09-2022 BASO # 0.0 103/ul Normal 0.0-0.1 [facility] Comment on above: Performed By: #### C BC ####[facility] Yidjpptdiq[address] [place], [place] [address]Dr. Awildanitza Navarro Basophils/100 WBC (Bld) 0.1 % Critically low 0.2-2.0 [facility] Comment on above: Performed By: #### C BC ####[facility] Dniwuwqlcz182[address] [place], [place] [address]Dr. Emelina Navarro EO # 0.0 103/ul Normal 0.0-0.7 [facility] Comment on above: Performed By: #### C BC ####[facility] Zlsejqnntc[address] [place], [place] [address]Dr. Awildanitza Navarro Eosinophils/100 WBC (Bld) 0.0 % Critically low 0.9-7.0 [facility] Comment on above: Performed By: #### C BC ####[facility] Fvtvylwddj[address] [place], [place] [address]Dr. Emelina Navarro Erythrocyte distribution width (RBC) [Ratio] 15.9 % Critically high 11.0-15.0 [facility] Comment on above: Performed By: #### C BC ####[facility] Jepirpiigm6675 [place] [address]Dr. Awildanitza Navarro Hematocrit (Bld) [Volume fraction] 42.7 % Normal 42.0-54.0 [facility] Comment on above: Performed By: #### C BC ####[facility] Eztxwklfxa4027 [place] [address]Dr. Emelina Navarro Hemoglobin (Bld) [Mass/Vol] 13.5 g/dL Critically low 14.0-18.0 [facility] Comment on above: Performed By: #### C BC ####[facility] Iukaupjuel2810 [place] [address]Dr. Emelina Navarro IG # 0.14 10e3/ul Critically high 0.00-0.[address] [facility] Comment on above: Performed By: #### C BC ####[facility] Lhwjxfdeue17[address] [place], [place] [address]Dr. Emelina Navarro IG % 0.8 % Critically high 0.0-0.5 [facility] Comment on above: Performed By: #### C BC ####[facility] Sevkmshykx4104 [place] [address]Dr. Emelina Navarro LYMPH # 1.1 103/ul Critically low 1.2-3.8 [facility] Comment on above: Performed By: #### C BC ####[facility] Ndrcjfhbai5204 [place] [address]Dr. Emelina Navarro Lymphocytes/100 WBC (Bld) 6.2 % Critically low 20.5-60.0 [facility] Comment on above: Performed By: #### C BC ####[facility] Yicuuacijo[address] [place], [place] [address]Dr. Emelina Navarro MANUAL DIFF REQ NO Normal [facility] Comment on above: Performed By: #### C BC ####[facility] Kkbuyfpdae9[address] [place], [place] [address]Dr. Emelina Navarro MCH (RBC) [Entitic mass] 28.5 pg Normal 25.9-34.0 [facility] Comment on above: Performed By: #### C BC ####[facility] Jtnfihbfuy9964 [place] [phone]. Emelina Ramon MCHC (RBC) [Mass/Vol] 31.6 g/dL Normal 29.9-35.2 [facility] Comment on above: Performed By: #### C BC ####[facility] Hkusebkdhs1248 [place] [phone]. Emelina Navarro MCV (RBC) [Entitic vol] 90.3 fL Normal 80.0-94.0 [facility] Comment on above: Performed By: #### C BC ####[facility] Itpljlvyqa9[address] [place], [place] [address]Dr. Emelina Navarro MONO # 0.4 103/ul Normal 0.3-0.8 [facility] Comment on above: Performed By: #### C BC ####[facility] Bmcuuwppfm0[address] [place], [place] [address]Dr. Emelina Navarro Monocytes/100 WBC (Bld) 2.1 % Normal 1.7-12.0 [facility] Comment on above: Performed By: #### C BC ####[facility] Ihunzprtkh[address] [place], [place] [address]Dr. Emelina Navarro NEUT # 16.2 103/ul Critically high 1.4-6.5 [facility] Comment on above: Performed By: #### C BC ####[facility] Noxttcgvxp156[address] [place], [place] [address]Dr. Emelina Navarro Neutrophils/100 WBC (Bld) 90.8 % Critically high 43.0-75.0 [facility] Comment on above: Performed By: #### C BC ####[facility] Zwfdlgpiak8[address] [place], [place] [address]Dr. Emelina Navarro Platelet mean volume (Bld) [Entitic vol] 10.2 fL Normal 9.5-13.5 [facility] Comment on above: Performed By: #### C BC ####[facility] Tuamldtneb7[address] [place], [place] [address]Dr. Emelina Navarro PLT 215 103/ul Normal 150-450 [facility] Comment on above: Performed By: #### C BC ####[facility] Uctgpcrwit1622 [place] [phone]. Emelina Navarro RBC 4.73 106/ul Normal 4.70-6.10 [facility] Comment on above: Performed By: #### C BC ####[facility] Iiuwsbcytj8908 [place] [phone]. Emelina Navarro WBC 17.8 103/ul Critically high 4.0-11.0 [facility] Comment on above: Performed By: #### C BC ####[facility] Ideegpdkkr9371 [place] [phone]. Emelina Navarro CRPon 05-09-2022 CRP 4.4 mg/dL Critically high <=1.0 [facility] Comment on above: Performed By: #### C MP, HSTROPN, CRP ####[facility] Oxowuzjrqo4597 [place] [address]Dr. Emelina Navarro DIGOXINon 05-09-2022 DIG 1.3 ng/mL Normal 0.9-2.0 [facility] Comment on above: Performed By: #### D IG ####[facility] Brclablest9984 [place] [phone]. Emelina Navarro POINT OF CARE GLUCOSEon 04-20 Glucose [Mass/Vol] 319 mg/dL Critically high 74-106 [facility] Comment on above: Performed By: #### P OCGLUC ####[facility] Aeddnmuwbu2441 [place] [address]Dr. Emelina Navarro Glucose [Mass/Vol] 259 mg/dL Critically high 74-106 [facility] Comment on above: Performed By: #### P OCGLUC ####[facility] Bpdlppwfhw2103 [place] [address]Dr. Emelina Navarro Glucose [Mass/Vol] 564 mg/dL Critically high 74-106 [facility] Comment on above: Result Comment: NURS E NOTIFIED Performed By: #### P OCGLUC ####[facility] Hoaduieemk[address]902 [place] [address]Dr. Emelina Navarro PROF 14(COMP METB)on 022 Albumin [Mass/Vol] 3.1 g/dL Critically low 3.4-5.0 [facility] Comment on above: Performed By: #### C MP, HSTROPN, CRP ####[facility] Fmeumcpfjb4943 [place] [address]Dr. Emelina Navarro Albumin/Globulin [Mass ratio] 0.7 {ratio} Normal [facility] Comment on above: Performed By: #### C MP, HSTROPN, CRP ####[facility] Izdikapkgk7515 [place] [address]Dr. Emelina Navarro ALP [Catalytic activity/Vol] 102 U/L Normal 46-116 [facility] Comment on above: Performed By: #### C MP, HSTROPN, CRP ####[facility] Mxsuhooyae9056 [place] [address]Dr. Emelina Navarro ALT [Catalytic activity/Vol] 81 U/L Critically high 16-63 [facility] Comment on above: Performed By: #### C MP, HSTROPN, CRP ####[facility] Pbnuyxgxgt2098 [address] [place] [address]Dr. Emelina Navarro Anion gap [Moles/Vol] 12.3 mmol/L Normal [facility] Comment on above: Performed By: #### C MP, HSTROPN, CRP ####[facility] Fedhzhzqgl01[address] [place] [address]Dr. Emelina Navarro AST [Catalytic activity/Vol] 22 U/L Normal 15-37 [facility] Comment on above: Performed By: #### C MP, HSTROPN, CRP ####[facility] Yjuunryufi1747 [place] [address]Dr. Emelina Navarro Bilirubin [Mass/Vol] 0.6 mg/dL Normal 0.2-1.0 [facility] Comment on above: Performed By: #### C MP, HSTROPN, CRP ####[facility] Gqtoirzikf6271 [place] [address]Dr. Emelina Navarro Calcium [Mass/Vol] 8.6 mg/dL Normal 8.5-10.1 [facility] Comment on above: Performed By: #### C MP, HSTROPN, CRP ####[facility] Karenxcwly2595 [place] [address]Dr. Emelina Navarro Chloride [Moles/Vol] 100 mmol/L Normal 98-107 [facility] Comment on above: Performed By: #### C MP, HSTROPN, CRP ####[facility] Uvxnahkleo9271 [place] [address]Dr. Emelina Navarro CO2 [Moles/Vol] 28.4 mmol/L Normal 21.0-32.0 [facility] Comment on above: Performed By: #### C MP, HSTROPN, CRP ####[facility] Lrsgfhplyx[address] [place], [place] [address]Dr. Emelina Navarro Creatinine [Mass/Vol] 1.91 mg/dL Critically high 0.70-1.30 [facility] Comment on above: Performed By: #### C MP, HSTROPN, CRP ####[facility] Eoxuaikgez5099 [place] [address]Dr. Emelina Navarro EGFR-AF TOGOLESE 43 mL/min/1.73m2 Critically low >=60 [facility] Comment on above: Performed By: #### C MP, HSTROPN, CRP ####[facility] Ynwghkzbxn5718 [place] [address]Dr. Emelina Navarro EGFR-NON AF TOGOLESE 35 mL/min/1.73m2 Critically low >=60 [facility] Comment on above: Performed By: #### C MP, HSTROPN, CRP ####[facility] Ozgmzpwfec3423 [place] [address]Dr. Emelina Navarro Globulin (S) [Mass/Vol] 4.6 g/dL Normal [facility] Comment on above: Performed By: #### C MP, HSTROPN, CRP ####[facility] Lbmcjxvypm5427 [place] [address]Dr. Emelina Navarro Glucose [Mass/Vol] 242 mg/dL Critically high 74-106 [facility] Comment on above: Performed By: #### C MP, HSTROPN, CRP ####[facility] Mlwsedxmhg2112 [place] [address]Dr. Emelina Navarro Potassium [Moles/Vol] 4.7 mmol/L Normal 3.5-5.1 [facility] Comment on above: Performed By: #### C MP, HSTROPN, CRP ####[facility] Fvexnajurq2218 [place] [address]Dr. Emelina Navarro Protein [Mass/Vol] 7.7 g/dL Normal 6.4-8.[address] [facility] Comment on above: Performed By: #### C MP, HSTROPN, CRP ####[facility] Xryvnmwtxr[address] [place], [place] [address]Dr. Emelina Navarro Sodium [Moles/Vol] 136 mmol/L Normal 136-[address] [facility] Comment on above: Performed By: #### C MP, HSTROPN, CRP ####[facility] Uewxkerflc[address] [place], [place] [address]Dr. Emelina Navarro Urea nitrogen [Mass/Vol] 48.0 mg/dL Critically high 7.0-18.0 [facility] Comment on above: Performed By: #### C MP, HSTROPN, CRP ####[facility] Bziiwbaklz[address] [place], [place] [address]Dr. Emelina Navarro Urea nitrogen/Creatinine [Mass ratio] 25.1 mg/mg Normal [facility] Comment on above: Performed By: #### C MP, HSTROPN, CRP ####[facility] Krpjkoyyxg296[address] [place], [place] [address]Dr. Emelina Navarro PROTIMEon 05-09-2022 INR Coag (PPP) [Relative time] 2.59 {INR} Normal [facility] Comment on above: Performed By: #### P T ####[facility] Bulqfkrwtz[address] [place], [place] [address]Dr. Emelina Navarro INR GUIDELINES SEE BELOW Normal [facility] Comment on above: Result Comment: WENDY RED INR: 2.0 - 3.0 CONDITIONS NOT LISTED BELOW 2.5 - 3.5 FOR PROSTHETIC HEART VALVE REPLACEMENT 2.5 - 3.5 RECURRENT THROMBOSIS Performed By: #### P T ####[facility] Brpfwgbica7732 [place] [address]Dr. Emelina Navarro PT Coag (PPP) [Time] 26.3 s Critically high 9.0-11.6 [facility] Comment on above: Performed By: #### P T ####[facility] Nwtbvjkoft8096 [place] [address]Dr. Emelina Navarro TROPONIN, HIGH SENSITIVITYon 05-09-2022 HSTROP 45.4 pg/mL Normal 4.0-76.1 [facility] Comment on above: Result Comment: CUT- OFF POINTS HAVE BEEN ESTABLISHED BASED ON THE FOURTH UNIVERSAL DEFINITIONS OF MYOCARDIALINFARCTION. THE UPPER REFERENCE LIMIT (URL) OF TROPONIN, DEFINED THE 99TH PERCENTILE OFcTnI DISTRIBUTION IN A REFERENCE POPULATION, HAS BEEN CONFIRMED THE DECISION THRESHOLDFOR OR DIAGNOSIS. Performed By: #### C MP, HSTROPN, CRP ####[facility] Vqwfynhefh9662 [place] [address]Dr. Emelina Navarro XR FOOT RT MIN 3 VIEWSon XR FOOT RT MIN 3 VIEWS Normal [facility] CARDIAC IMTIAZ 3-6on 2 CK [Catalytic activity/Vol] 34 U/L Critically low 39-308 [facility] Comment on above: Performed By: #### C MREP ####[facility] Poxmmpqeuq5474 [place] [address]Dr. Emelina Navarro CK.MB [Mass/Vol] 3.37 ng/mL Normal <=3.60 [facility] Comment on above: Performed By: #### C MREP ####[facility] Krdgkkihmy6621 [place] [address]Dr. Emelina Navarro HSTROP 53.5 pg/mL Normal 4.0-76.1 [facility] Comment on above: Result Comment: CUT- OFF POINTS HAVE BEEN ESTABLISHED BASED ON THE FOURTH UNIVERSAL DEFINITIONS OF MYOCARDIALINFARCTION. THE UPPER REFERENCE LIMIT (URL) OF TROPONIN, DEFINED THE 99TH PERCENTILE OFcTnI DISTRIBUTION IN A REFERENCE POPULATION, HAS BEEN CONFIRMED THE DECISION THRESHOLDFOR OR DIAGNOSIS. Performed By: #### C MREP ####[facility] Rzyoozltrf7647 [place], [place] [address]Ql. Emelina Navarro CK [Catalytic activity/Vol] 39 U/L Normal 39-308 [facility] Comment on above: Performed By: #### C MREP ####[facility] Shcgcycymy4358 [place], [place] [address]Pq. Emelina Navarro CK.MB [Mass/Vol] 2.74 ng/mL Normal <=3.60 [facility] Comment on above: Performed By: #### C MREP ####[facility] Syifaakrky0190 [place], [place] [address]Vp. Emelina Navarro HSTROP 68.7 pg/mL Normal 4.0-76.1 [facility] Comment on above: Result Comment: CUT- OFF POINTS HAVE BEEN ESTABLISHED BASED ON THE FOURTH UNIVERSAL DEFINITIONS OF MYOCARDIALINFARCTION. THE UPPER REFERENCE LIMIT (URL) OF TROPONIN, DEFINED THE 99TH PERCENTILE OFcTnI DISTRIBUTION IN A REFERENCE POPULATION, HAS BEEN CONFIRMED THE DECISION THRESHOLDFOR OR DIAGNOSIS. Performed By: #### C MREP ####[facility] Nyugfemoue0879 [place] [phone]. Emelina Navarro CARDIAC IMTIAZ ADMITon 022 CK [Catalytic activity/Vol] 30 U/L Critically low 39-308 [facility] Comment on above: Performed By: #### B VICTORINA, CMADM ####[facility] Jbrwpgxhvp0012 [place], [place] [address]Of. Emelina Navarro CK.MB [Mass/Vol] 2.88 ng/mL Normal <=3.60 [facility] Comment on above: Performed By: #### B VICTORINA, CMADM ####[facility] Bacynrvxtd1050 [place], [place] [address]El. Emelina Navarro HSTROP 69.9 pg/mL Normal 4.0-76.1 [facility] Comment on above: Result Comment: CUT- OFF POINTS HAVE BEEN ESTABLISHED BASED ON THE FOURTH UNIVERSAL DEFINITIONS OF MYOCARDIALINFARCTION. THE UPPER REFERENCE LIMIT (URL) OF TROPONIN, DEFINED THE 99TH PERCENTILE OFcTnI DISTRIBUTION IN A REFERENCE POPULATION, HAS BEEN CONFIRMED THE DECISION THRESHOLDFOR OR DIAGNOSIS. Performed By: #### B SHIVAM PRAJAPATI ####[facility] Ypczjaotmo6232 [place] [phone]. Awildanitza Navarro URBANO 79 ng/mL Normal 16-96 [facility] Comment on above: Performed By: #### B SHIVAM PRAJAPATI ####[facility] Axmwbmkkfb1463 [place] [phone]. Emelina Navarro CBC AUTO DIFFon 05-08-2022 BASO # 0.0 103/ul Normal 0.0-0.1 [facility] Comment on above: Performed By: #### C BC ####[facility] Pkfnjojgyq3618 [place] [address]Dr. Emelina Navarro Basophils/100 WBC (Bld) 0.2 % Normal 0.2-2.0 [facility] Comment on above: Performed By: #### C BC ####[facility] Iwultdgscr[address] [place], [place] [address]Dr. Emelina Navarro EO # 0.2 103/ul Normal 0.0-0.7 [facility] Comment on above: Performed By: #### C BC ####[facility] Wcluaajazj9[address] [place], [place] [address]Dr. Awildanitza Navarro Eosinophils/100 WBC (Bld) 1.3 % Normal 0.9-7.0 [facility] Comment on above: Performed By: #### C BC ####[facility] Wntwxrrdcf[address] [place], [place] [address]Dr. Awildanitza Navarro Erythrocyte distribution width (RBC) [Ratio] 16.2 % Critically high 11.0-15.0 [facility] Comment on above: Performed By: #### C BC ####[facility] Xfisrhesvp[address] [place], [place] [address]Dr. Awildanitza Navarro Hematocrit (Bld) [Volume fraction] 43.8 % Normal 42.0-54.0 [facility] Comment on above: Performed By: #### C BC ####[facility] Uwevorfyxo[address] [place], [place] [address]Dr. Awildanitza Navarro Hemoglobin (Bld) [Mass/Vol] 13.9 g/dL Critically low 14.0-18.0 [facility] Comment on above: Performed By: #### C BC ####[facility] Xaalrllasj7169 [place] [address]Dr. Emelina Navarro IG # 0.17 10e3/ul Critically high 0.00-0.[address] [facility] Comment on above: Performed By: #### C BC ####[facility] Xakxswtuqu6407 [place] [address]Dr. Emelina Navarro IG % 1.0 % Critically high 0.0-0.5 [facility] Comment on above: Performed By: #### C BC ####[facility] Bbtimdvzxh0185 [place] [address]DrWesley Navarro LYMPH # 1.1 103/ul Critically low 1.2-3.8 [facility] Comment on above: Performed By: #### C BC ####[facility] Gahwwlxphk8520 [place] [address]DrWesley Navarro Lymphocytes/100 WBC (Bld) 6.5 % Critically low 20.5-60.0 [facility] Comment on above: Performed By: #### C BC ####[facility] Sniuiivstt9988 [place] [address]DrWesley Navarro MANUAL DIFF REQ NO Normal [facility] Comment on above: Performed By: #### C BC ####[facility] Ylvtdgcrlt7640 [place] [address]DrWesley Navarro MCH (RBC) [Entitic mass] 28.8 pg Normal 25.9-34.0 [facility] Comment on above: Performed By: #### C BC ####[facility] Mqxgrgxjlp0186 [place] [phone] Navarro MCHC (RBC) [Mass/Vol] 31.7 g/dL Normal 29.9-35.2 [facility] Comment on above: Performed By: #### C BC ####[facility] Wtqmsfteah9170 [place] [phone] Navarro MCV (RBC) [Entitic vol] 90.9 fL Normal 80.0-94.0 [facility] Comment on above: Performed By: #### C BC ####[facility] Oamiyvitim9888 [place] [phone]. Emelina Ramon MONO # 1.4 103/ul Critically high 0.3-0.8 [facility] Comment on above: Performed By: #### C BC ####[facility] Xpzqwyszpj4860 [place] [address]Dr. Emelina Navarro Monocytes/100 WBC (Bld) 8.5 % Normal 1.7-12.0 [facility] Comment on above: Performed By: #### C BC ####[facility] Vcjjqamafh3922 [place] [address]Dr. Emelina Navarro NEUT # 13.9 103/ul Critically high 1.4-6.5 [facility] Comment on above: Performed By: #### C BC ####[facility] Tohjxmihjv4711 [place] [address]Dr. Emelina Navarro Neutrophils/100 WBC (Bld) 82.5 % Critically high 43.0-75.0 [facility] Comment on above: Performed By: #### C BC ####[facility] Wfbsflibhv[address] [place], [place] [address]Dr. Awildanitza Navarro Platelet mean volume (Bld) [Entitic vol] 9.8 fL Normal 9.5-13.5 [facility] Comment on above: Performed By: #### C BC ####[facility] Xeqcjncwhq9780 [place] [phone]. Emelina Ramon PLT 214 103/ul Normal 150-450 [facility] Comment on above: Performed By: #### C BC ####[facility] Rqnjkrzstw2553 [place] [phone]. Emelina Navarro RBC 4.82 106/ul Normal 4.70-6.10 [facility] Comment on above: Performed By: #### C BC ####[facility] Gsdbdtedkd5490 [place] [phone]. Emelina Navarro WBC 16.8 103/ul Critically high 4.0-11.0 [facility] Comment on above: Performed By: #### C BC ####[facility] Prqscydrdq2804 [place] [phone]. Emelina Navarro CRPon 05-08-2022 CRP 2.5 mg/dL Critically high <=1.0 [facility] Comment on above: Performed By: #### C RP ####[facility] Sgdsccthmk6592 [place] [address]Dr. Emelina Navarro Covid-19 PCR (CVDTBH)on 04-20 SARS-CoV-2 (COVID-19) RNA RADHA+probe Ql (Unsp spec) Detected Critically abnormal NOT DETECTED [facility] Comment on above: Result Comment: This test is not yet approved or cleared by the [place] FDA. When there are no FDA-approved or cleared tests available, and other criteria are met, FDA can make tests available under an emergency access mechanism called an Emergency Use Authorization (EUA). The EUA for this test is supported by the Bulking Machine Operator of Health and Human Service's declaration that [...] be used). Performed By: #### C VDTBH ####[facility] Oawefpjsda2294 [place] [address]Dr. Emelina Navarro DIGOXINon 05-08-2022 DIG 0.9 ng/mL Normal 0.9-2.0 [facility] Comment on above: Performed By: #### D IG ####[facility] [address]qoyfzzkso[address] [place], [place] [address]Dr. Emelina Ramon LACTATE/LACTIC ACIDon 2021 Lactate [Moles/Vol] 1.6 mmol/L Normal 0.4-1.9 [facility] Comment on above: Performed By: #### L ACT ####[facility] Dhczbgvvjn[address] [place], [place] [address]Dr. Emelina Navarro Lactate [Moles/Vol] 1.3 mmol/L Normal 0.4-1.9 [facility] Comment on above: Performed By: #### L ACT ####[facility] Qzsekjgdit4880 [place] [address]Dr. Emelina Navarro POINT OF CARE GLUCOSEon 04-20 Glucose [Mass/Vol] 244 mg/dL Critically high 74-106 [facility] Comment on above: Performed By: #### P OCGLUC ####[facility] Pfscylgyhl8242 [place] [address]Dr. Emelina Navarro Glucose [Mass/Vol] 405 mg/dL Critically high 74-106 [facility] Comment on above: Performed By: #### P OCGLUC ####[facility] Uemvouelmz7268 [place] [address]Dr. Emelina Navarro Glucose [Mass/Vol] 352 mg/dL Critically high 74-106 [facility] Comment on above: Performed By: #### P OCGLUC ####[facility] Jukulrmodn[address] [place], [place] [address]Dr. Emelina Navarro Glucose [Mass/Vol] 285 mg/dL Critically high 74-106 [facility] Comment on above: Performed By: #### P OCGLUC ####[facility] Ailxvddwsv0373 [place] [address]Dr. Emelina Navarro PROF CHEM 8 (BAS METB)on Anion gap [Moles/Vol] 13.7 mmol/L Normal [facility] Comment on above: Performed By: #### B MP ####[facility] Qryjbpftbe7107 [place] [address]Dr. Emelina Navarro Calcium [Mass/Vol] 8.4 mg/dL Critically low 8.5-10.1 [facility] Comment on above: Performed By: #### B MP ####[facility] Pdbemqqjcp5463 [place] [address]Dr. Emelina Navarro Chloride [Moles/Vol] 93 mmol/L Critically low 98-107 [facility] Comment on above: Performed By: #### B MP ####[facility] Bxwztmchjj6569 [place] [phone]. Emelina Navarro CO2 [Moles/Vol] 26.4 mmol/L Normal 21.0-32.0 [facility] Comment on above: Performed By: #### B MP ####[facility] Rscydiqlhv6198 [place] [phone]. Emelina Navarro Creatinine [Mass/Vol] 2.23 mg/dL Critically high 0.70-1.30 [facility] Comment on above: Performed By: #### B MP ####[facility] Rhmekefkcm9066 [place] [phone]. Eemlina Navarro EGFR-AF TOGOLESE 36 mL/min/1.73m2 Critically low >=60 [facility] Comment on above: Performed By: #### B MP ####[facility] Fldqdbaheg8332 [place] [phone]. Awildanitza Ramon EGFR-NON AF TOGOLESE 30 mL/min/1.73m2 Critically low >=60 [facility] Comment on above: Performed By: #### B MP ####[facility] Gkvxsjxwsb6755 [place] [phone]. Emelina Navarro Glucose [Mass/Vol] 451 mg/dL Critically high 74-106 [facility] Comment on above: Performed By: #### B MP ####[facility] Bafcxqifcm6105 [place] [phone]. Emelina Navarro Potassium [Moles/Vol] 5.1 mmol/L Normal 3.5-5.1 [facility] Comment on above: Performed By: #### B MP ####[facility] Lnkgcrujvb3130 [place] [phone]. Awildanitza Navarro Sodium [Moles/Vol] 128 mmol/L Critically low 136-145 [facility] Comment on above: Performed By: #### B MP ####[facility] Wmtrdlarnr3371 [place] [phone]. Awildanitza Navarro Urea nitrogen [Mass/Vol] 40.0 mg/dL Critically high 7.0-18.0 [facility] Comment on above: Performed By: #### B MP ####[facility] Jjkdkpsjsi3741 [place] [phone]. Emelnia Navarro Urea nitrogen/Creatinine [Mass ratio] 17.9 mg/mg Normal [facility] Comment on above: Performed By: #### B MP ####[facility] Kboplvxmtm6311 [place] [phone]. Emelina Ramon Anion gap [Moles/Vol] 13.7 mmol/L Normal [facility] Comment on above: Performed By: #### B VICTORINA, CMADM ####[facility] Fnylldvyic6330 [place] [phone]. Emelina Ramon Calcium [Mass/Vol] 8.5 mg/dL Normal 8.5-10.1 [facility] Comment on above: Performed By: #### B VICTORINA, CMADM ####[facility] Tzyxqdmpij[address] [place], [place] [address]Dr. Emelina Navarro Chloride [Moles/Vol] 98 mmol/L Normal 98-107 [facility] Comment on above: Performed By: #### B VICTORINA, CMADM ####[facility] Cakfwxvszv6163 [place] [phone]. Emelina Ramon CO2 [Moles/Vol] 25.0 mmol/L Normal 21.0-32.0 [facility] Comment on above: Performed By: #### B VICTORINA, CMADM ####[facility] [address]uxjvjzoc[address] [place], [place] [address]Dr. Emelina Navarro Creatinine [Mass/Vol] 1.97 mg/dL Critically high 0.70-1.30 [facility] Comment on above: Performed By: #### B VITCORINA, CMADM ####[facility] Oeflwinpwe6916 [place] [phone]. Awildanitza Ramon EGFR-AF TOGOLESE 41 mL/min/1.73m2 Critically low >=60 [facility] Comment on above: Performed By: #### B VICTORINA, CMADM ####[facility] Etaionoewn2794 [place] [phone]. Awildanitza Ramon EGFR-NON AF TOGOLESE 34 mL/min/1.73m2 Critically low >=60 [facility] Comment on above: Performed By: #### B SHIVAM PRAJAPATI ####[facility] Hkvatzvpew2728 [place] [address]Dr. Emelina Navarro Glucose [Mass/Vol] 239 mg/dL Critically high 74-106 [facility] Comment on above: Performed By: #### B SHIVAM PRAJAPATI ####[facility] Kopvyonwkw7672 [place] [address]Dr. Emelina Navarro Potassium [Moles/Vol] 5.7 mmol/L Critically high 3.5-5.1 [facility] Comment on above: Performed By: #### B SHIVAM PRAJAPATI ####[facility] Zuqyarxayj[address] [place], [place] [address]Dr. Emelina Navarro Sodium [Moles/Vol] 131 mmol/L Critically low 136-145 [facility] Comment on above: Performed By: #### B SHIVAM PRAJAPATI ####[facility] Mhwqyxifwv020[address] [place], [place] [address]Dr. Emelina Navarro Urea nitrogen [Mass/Vol] 37.0 mg/dL Critically high 7.0-18.0 [facility] Comment on above: Performed By: #### B SHIVAM PRAJAPATI ####[facility] Xwkowewbbu907[address] [place], [place] [address]Dr. Emelina Navarro Urea nitrogen/Creatinine [Mass ratio] 18.8 mg/mg Normal [facility] Comment on above: Performed By: #### B SHIVAM PRAJAPATI ####[facility] Vbbgqpxhuk[address] [place], [place] [address]Dr. Emelina Navarro PROTIMEon 05-08-2022 INR Coag (PPP) [Relative time] 2.28 {INR} Normal [facility] Comment on above: Performed By: #### P T ####[facility] Mrmtuqocaq[address] [place], [place] [address]Dr. Emelina Navarro INR GUIDELINES SEE BELOW Normal [facility] Comment on above: Result Comment: WENDY RED INR: 2.0 - 3.0 CONDITIONS NOT LISTED BELOW 2.5 - 3.5 FOR PROSTHETIC HEART VALVE REPLACEMENT 2.5 - 3.5 RECURRENT THROMBOSIS Performed By: #### P T ####[facility] Btutjebwbm7052 [place] [address]Dr. Emelina Navarro PT Coag (PPP) [Time] 23.3 s Critically high 9.0-11.6 [facility] Comment on above: Performed By: #### P T ####[facility] Puhtjzztvx[address] [place], [place] [address]Dr. Emelina Navarro US FERNY DOP LEG LTon 05-08-20 US FERNY DOP LEG LT Normal [facility] XR CHEST 1 Von 05-08-2022 XR CHEST 1 V Normal [facility] CBC AUTO DIFFon 05-02-2022 BASO # 0.0 103/ul Normal 0.0-0.1 [facility] Comment on above: Performed By: #### C BC ####[facility] Rnwxhbudee[address] [place], [place] [address]Dr. Emelina Navarro Basophils/100 WBC (Bld) 0.2 % Normal 0.2-2.0 [facility] Comment on above: Performed By: #### C BC ####[facility] Qoaugoskyh[address] [place], [place] [address]Dr. Emelina Navarro EO # 0.0 103/ul Normal 0.0-0.7 [facility] Comment on above: Performed By: #### C BC ####[facility] Leuwmokvwd5[address] [place], [place] [address]Dr. Emelina Navarro Eosinophils/100 WBC (Bld) 0.2 % Critically low 0.9-7.0 [facility] Comment on above: Performed By: #### C BC ####[facility] Hybdqofzbj90[address] [place], [place] [address]Dr. Emelina Navarro Erythrocyte distribution width (RBC) [Ratio] 16.5 % Critically high 11.0-15.0 [facility] Comment on above: Performed By: #### C BC ####[facility] Xflhowdoiq[address] [place], [place] [address]Dr. Emelina Navarro Hematocrit (Bld) [Volume fraction] 42.0 % Normal 42.0-54.0 [facility] Comment on above: Performed By: #### C BC ####[facility] Vtufpuijdo5891 [place] [phone]. Emelina Navarro Hemoglobin (Bld) [Mass/Vol] 13.3 g/dL Critically low 14.0-18.0 [facility] Comment on above: Performed By: #### C BC ####[facility] Zxwchurley5199 [place] [phone]. Emelina Navarro IG # 0.14 10e3/ul Critically high 0.00-0.[address] [facility] Comment on above: Performed By: #### C BC ####[facility] Vqhgtpvyfm3341 [place] [phone]. Emelina Navarro IG % 1.1 % Critically high 0.0-0.5 [facility] Comment on above: Performed By: #### C BC ####[facility] Kvestqjpij8809 [place] [address]Dr. Emelina Navarro LYMPH # 1.3 103/ul Normal 1.2-3.8 [facility] Comment on above: Performed By: #### C BC ####[facility] Lkrrjyvlbu7498 [place] [phone]. Emelina Navarro Lymphocytes/100 WBC (Bld) 9.8 % Critically low 20.5-60.0 [facility] Comment on above: Performed By: #### C BC ####[facility] Nduiefetmq6996 [place] [phone]. Emelina Navarro MANUAL DIFF REQ NO Normal [facility] Comment on above: Performed By: #### C BC ####[facility] Etohejyabz4105 [place] [phone]. Emelina Navarro MCH (RBC) [Entitic mass] 28.9 pg Normal 25.9-34.0 [facility] Comment on above: Performed By: #### C BC ####[facility] Clufzkpuod4002 [place] [phone]. Emelina Navarro MCHC (RBC) [Mass/Vol] 31.7 g/dL Normal 29.9-35.2 [facility] Comment on above: Performed By: #### C BC ####[facility] Mphyydiwdt2774 [place] [phone]. Emelina Navarro MCV (RBC) [Entitic vol] 91.1 fL Normal 80.0-94.0 [facility] Comment on above: Performed By: #### C BC ####[facility] Znpwmirfbu1004 [place] [phone]. Emelina Navarro MONO # 1.2 103/ul Critically high 0.3-0.8 [facility] Comment on above: Performed By: #### C BC ####[facility] Heamuognfz1468 [place] [place] [id number]. Emelina Navarro Monocytes/100 WBC (Bld) 9.6 % Normal 1.7-12.0 [facility] Comment on above: Performed By: #### C BC ####[facility] Ovajhfgcjr[address] [place], [place] [id number]. Emelina Navarro NEUT # 10.1 103/ul Critically high 1.4-6.5 [facility] Comment on above: Performed By: #### C BC ####[facility] Xvzchbxaag2294 [place] [phone]. Emelina Navarro Neutrophils/100 WBC (Bld) 79.1 % Critically high 43.0-75.0 [facility] Comment on above: Performed By: #### C BC ####[facility] Hmlhtwzfoq3162 [place] [phone]. Emelina Navarro Platelet mean volume (Bld) [Entitic vol] 10.0 fL Normal 9.5-13.5 [facility] Comment on above: Performed By: #### C BC ####[facility] Qnkjmrlldj0584 [place] [phone]. Emelina Navarro PLT 188 103/ul Normal 150-450 [facility] Comment on above: Performed By: #### C BC ####[facility] Thqbbtaqhj6803 [place] [phone]. Emelina Ramon RBC 4.61 106/ul Critically low 4.70-6.10 [facility] Comment on above: Performed By: #### C BC ####[facility] Caozkzpcth9[address] [place] [address]Dr. Emelina Navarro WBC 12.8 103/ul Critically high 4.0-11.0 [facility] Comment on above: Performed By: #### C BC ####[facility] Uiqvcyyipm5077 [place] [address]Dr. Emelina Navarro NM HEPATOBILIARY SCAN W EFon 05-02-2022 NM HEPATOBILIARY SCAN W EF Normal [facility] PROF 14(COMP METB)on 022 Albumin [Mass/Vol] 2.7 g/dL Critically low 3.4-5.0 [facility] Comment on above: Performed By: #### C MP ####[facility] Rbqukhkjcv028[address] [place], [place] [address]Dr. Emelina Navarro Albumin/Globulin [Mass ratio] 0.7 {ratio} Normal [facility] Comment on above: Performed By: #### C MP ####[facility] Bgogqefkql8307[address] [place], [place] [address]Dr. Emelina Navarro ALP [Catalytic activity/Vol] 65 U/L Normal 46-116 [facility] Comment on above: Performed By: #### C MP ####[facility] Dfusfhexnz567248 [address] [place], [place] [address]Dr. Emelina Navarro ALT [Catalytic activity/Vol] 406 U/L Critically high 16-63 [facility] Comment on above: Performed By: #### C MP ####[facility] Auqohgetrp3715[address] [place], [place] [address]Dr. Emelina Navarro Anion gap [Moles/Vol] 8.1 mmol/L Normal [facility] Comment on above: Performed By: #### C MP ####[facility] Guernhdiik338548 [address] [place], [place] [address]Dr. Emelina Navarro AST [Catalytic activity/Vol] 101 U/L Critically high 15-37 [facility] Comment on above: Performed By: #### C MP ####[facility] Kwzcofpakm193348 [address] [place], [place] [address]Dr. Emelina Navarro Bilirubin [Mass/Vol] 0.6 mg/dL Normal 0.2-1.0 [facility] Comment on above: Performed By: #### C MP ####[facility] Goucdhosea5627[address] [place], [place] [address]Dr. Emelina Navarro Calcium [Mass/Vol] 7.7 mg/dL Critically low 8.5-10.1 [facility] Comment on above: Performed By: #### C MP ####[facility] Fzzmysqcny203648 [address] [place], [place] [address]Dr. Emelina Navarro Chloride [Moles/Vol] 104 mmol/L Normal 98-107 [facility] Comment on above: Performed By: #### C MP ####[facility] Qdezawzkva946148 [address] [place], [place] [address]Dr. Emelina Navarro CO2 [Moles/Vol] 30.9 mmol/L Normal 21.0-32.0 [facility] Comment on above: Performed By: #### C MP ####[facility] Rdvhfzgoio305148 [address] [place], [place] [address]Dr. Emelina Navarro Creatinine [Mass/Vol] 1.54 mg/dL Critically high 0.70-1.30 [facility] Comment on above: Performed By: #### C MP ####[facility] Luvkbnjgsd328648 [address] [place], [place] [address]Dr. Emelina Navarro EGFR-AF TOGOLESE 55 mL/min/1.73m2 Critically low >=60 [facility] Comment on above: Performed By: #### C MP ####[facility] Qtcprkhryf975448 [address] [place], [place] [address]Dr. Emelina Navarro EGFR-NON AF TOGOLESE 45 mL/min/1.73m2 Critically low >=60 [facility] Comment on above: Performed By: #### C MP ####[facility] Pvlxusmydx337848 [address] [place], [place] [address]Dr. Emelina Navarro Globulin (S) [Mass/Vol] 3.8 g/dL Normal [facility] Comment on above: Performed By: #### C MP ####[facility] Ywamsudfti694848 [address] [place], [place] [address]Dr. Emelina Navarro Glucose [Mass/Vol] 177 mg/dL Critically high 74-106 [facility] Comment on above: Performed By: #### C MP ####[facility] Mzltbpjeze6556 [place] [address]Dr. Awildanitza Ramon Potassium [Moles/Vol] 4.0 mmol/L Normal 3.5-5.1 [facility] Comment on above: Performed By: #### C MP ####[facility] Vhwinouchk274248 [address] [place], [place] [address]Dr. Awildanitza Ramon Protein [Mass/Vol] 6.5 g/dL Normal 6.4-8.2 [facility] Comment on above: Performed By: #### C MP ####[facility] Kagozjuenm190848 [address] [place], [place] [address]Dr. Emelina Navarro Sodium [Moles/Vol] 139 mmol/L Normal 136-145 [facility] Comment on above: Performed By: #### C MP ####[facility] Jqyfnvxecx826548 [address] [place], [place] [address]Dr. Awildanitza Navarro Urea nitrogen [Mass/Vol] 38.0 mg/dL Critically high 7.0-18.0 [facility] Comment on above: Performed By: #### C MP ####[facility] Djiwmppxkn729348 [address] [place], [place] [address]Dr. Emelina Ramon Urea nitrogen/Creatinine [Mass ratio] 24.7 mg/mg Normal [facility] Comment on above: Performed By: #### C MP ####[facility] Zfccvvyyfh104348 [address] [place], [place] [address]Dr. Emelina Navarro PROTIMEon 05-02-2022 INR Coag (PPP) [Relative time] 2.57 {INR} Normal [facility] Comment on above: Performed By: #### P T ####[facility] Fatreufquy499[address] [place], [place] [address]Dr. Emelina Navarro INR GUIDELINES SEE BELOW Normal [facility] Comment on above: Result Comment: WENDY RED INR: 2.0 - 3.0 CONDITIONS NOT LISTED BELOW 2.5 - 3.5 FOR PROSTHETIC HEART VALVE REPLACEMENT 2.5 - 3.5 RECURRENT THROMBOSIS Performed By: #### P T ####[facility] Rcccrvvrjw5507 [place] [address]Dr. Emelina Navarro PT Coag (PPP) [Time] 26.1 s Critically high 9.0-11.6 [facility] Comment on above: Performed By: #### P T ####[facility] Hdgaolsxow394348 [address] [place], [place] [address]Dr. Emelina Navarro CBC AUTO DIFFon 05-01-2022 BASO # 0.0 103/ul Normal 0.0-0.1 [facility] Comment on above: Performed By: #### C BC ####[facility] Xlgoaartyb4277[address] [place], [place] [address]Dr. Emelina Navarro Basophils/100 WBC (Bld) 0.1 % Critically low 0.2-2.0 [facility] Comment on above: Performed By: #### C BC ####[facility] Rwkydfiztc249148 [address] [place], [place] [address]Dr. Emelina Navarro EO # 0.0 103/ul Normal 0.0-0.7 [facility] Comment on above: Performed By: #### C BC ####[facility] Uzromljryu795348 [address] [place], [place] [address]Dr. Emelina Navarro Eosinophils/100 WBC (Bld) 0.0 % Critically low 0.9-7.0 [facility] Comment on above: Performed By: #### C BC ####[facility] Regfxemvsa876148 [address] [place], [place] [address]Dr. Emelina Navarro Erythrocyte distribution width (RBC) [Ratio] 16.5 % Critically high 11.0-15.0 [facility] Comment on above: Performed By: #### C BC ####[facility] Erpxlgxfsl661548 [address] [place], [place] [address]Dr. Emelina Navarro Hematocrit (Bld) [Volume fraction] 41.5 % Critically low 42.0-54.0 [facility] Comment on above: Performed By: #### C BC ####[facility] Zymbvaadso747348 [address] [place], [place] [address]Dr. Eemlina Navarro Hemoglobin (Bld) [Mass/Vol] 13.5 g/dL Critically low 14.0-18.0 [facility] Comment on above: Performed By: #### C BC ####[facility] Lldfordbzx0687 [place] [address]DrWesley Navarro IG # 0.12 10e3/ul Critically high 0.00-0.[address] [facility] Comment on above: Performed By: #### C BC ####[facility] Oqcoazqlls6328 [place] [address]DrWesley Navarro IG % 0.7 % Critically high 0.0-0.5 [facility] Comment on above: Performed By: #### C BC ####[facility] Gpnafcakxw420[address] [place], [place] [address]DrWesley Navarro LYMPH # 0.8 103/ul Critically low 1.2-3.8 [facility] Comment on above: Performed By: #### C BC ####[facility] Bojbhnqyqs1807[address] [place], [place] [address]DrWesley Navarro Lymphocytes/100 WBC (Bld) 4.7 % Critically low 20.5-60.0 [facility] Comment on above: Performed By: #### C BC ####[facility] Pxiarfakww6577[address] [place], [place] [address]DrWesley Navarro MANUAL DIFF REQ NO Normal [facility] Comment on above: Performed By: #### C BC ####[facility] Qpskvpuobg4905 [place] [address]DrWesley Navarro MCH (RBC) [Entitic mass] 28.9 pg Normal 25.9-34.0 [facility] Comment on above: Performed By: #### C BC ####[facility] Gqijrnuzru1550[address] [place], [place] [address]DrWesley Navarro MCHC (RBC) [Mass/Vol] 32.5 g/dL Normal 29.9-35.2 [facility] Comment on above: Performed By: #### C BC ####[facility] Szfqbkuefu327248 [address] [place], [place] [address]DrWelsey Navarro MCV (RBC) [Entitic vol] 88.9 fL Normal 80.0-94.0 [facility] Comment on above: Performed By: #### C BC ####[facility] Fxesvzbxcw8378 [place] [address]DrWesley Navarro MONO # 1.0 103/ul Critically high 0.3-0.8 [facility] Comment on above: Performed By: #### C BC ####[facility] Kzvmwlyzoe4088 [place] [address]DrWesley Navarro Monocytes/100 WBC (Bld) 6.5 % Normal 1.7-12.0 [facility] Comment on above: Performed By: #### C BC ####[facility] Mcqvsyieba229348 [address] [place], [place] [address]Dr. Emelina Navarro NEUT # 14.1 103/ul Critically high 1.4-6.5 [facility] Comment on above: Performed By: #### C BC ####[facility] Sayyvgehde665[address] [place], [place] [address]Dr. Emelina Navarro Neutrophils/100 WBC (Bld) 88.0 % Critically high 43.0-75.0 [facility] Comment on above: Performed By: #### C BC ####[facility] Psachvwsis991848 [address] [place], [place] [address]DrWesley Navarro Platelet mean volume (Bld) [Entitic vol] 9.9 fL Normal 9.5-13.5 [facility] Comment on above: Performed By: #### C BC ####[facility] Kpsfepauog626948 [address] [place], [place] [address]Dr. Emelina Navarro PLT 185 103/ul Normal 150-450 [facility] Comment on above: Performed By: #### C BC ####[facility] Sxejaqeakf8[address] [place], [place] [address]DrWesley Navarro RBC 4.67 106/ul Critically low 4.70-6.10 [facility] Comment on above: Performed By: #### C BC ####[facility] Arxyhbwayo6894[address] [place], [place] [address]DrWesley Navarro WBC 16.1 103/ul Critically high 4.0-11.0 [facility] Comment on above: Performed By: #### C BC ####[facility] Ogpzyhbcwd2035 [place] [address]Dr. Emelina Navarro LIVER PROFILEon 05-01-2022 Albumin/Globulin [Mass ratio] 0.7 {ratio} Normal [facility] Comment on above: Performed By: #### L IVER ####[facility] Tfjlgmqbzs4220 [place] [address]Dr. Emelina Navarro ALP [Catalytic activity/Vol] 71 U/L Normal 46-116 [facility] Comment on above: Performed By: #### L IVER ####[facility] Lpjcbbhgqf289[address] [place], [place] [address]Dr. Emelina Navraro ALT [Catalytic activity/Vol] 558 U/L Critically high 16-63 [facility] Comment on above: Performed By: #### L IVER ####[facility] Srzmwapsaw426248 [address] [place], [place] [address]Dr. Emelina Navarro AST [Catalytic activity/Vol] 220 U/L Critically high 15-37 [facility] Comment on above: Performed By: #### L IVER ####[facility] Xilrebyzvn654[address] [place], [place] [address]Dr. Emelina Navarro BILI, CONJUGATED 0.2 mg/dL Normal 0.0-0.2 [facility] Comment on above: Performed By: #### L IVER ####[facility] Pcsgxquarz2788[address] [place], [place] [address]Dr. Emelina Navarro Bilirubin [Mass/Vol] 0.5 mg/dL Normal 0.2-1.0 [facility] Comment on above: Performed By: #### L IVER ####[facility] Kwymllnscd716148 [address] [place], [place] [address]Dr. Emelina Navarro Globulin (S) [Mass/Vol] 3.9 g/dL Normal [facility] Comment on above: Performed By: #### L IVER ####[facility] Nljmadcjrb9609 [place] [address]Dr. Emelina Navarro Protein [Mass/Vol] 6.8 g/dL Normal 6.4-8.2 [facility] Comment on above: Performed By: #### L IVER ####[facility] Oqtufwhubc825[address] [place], [place] [address]Dr. Emelina Navarro POINT OF CARE GLUCOSEon 04-19 Glucose [Mass/Vol] 205 mg/dL Critically high 74-106 [facility] Comment on above: Performed By: #### P OCGLUC ####[facility] Jhfkkgjqpq899[address] [place], [place] [address]Dr. Emelina Navarro PROF 14(COMP METB)on 022 Albumin [Mass/Vol] 2.9 g/dL Critically low 3.4-5.0 [facility] Comment on above: Performed By: #### C MP ####[facility] Clubwvkjdw809648 [address] [place], [place] [address]Dr. Emelina Navarro Performed By: #### L IVER ####[facility] Xtymhfsvlf3000[address] [place], [place] [address]Dr. Emelina Navarro Albumin/Globulin [Mass ratio] 0.8 {ratio} Normal [facility] Comment on above: Performed By: #### C MP ####[facility] Eeepqabnku129[address] [place], [place] [address]Dr. Emelina Navarro ALP [Catalytic activity/Vol] 70 U/L Normal 46-116 [facility] Comment on above: Performed By: #### C MP ####[facility] Owgcyfyzud432848 [address] [place], [place] [address]Dr. Emelina Navarro ALT [Catalytic activity/Vol] 552 U/L Critically high 16-63 [facility] Comment on above: Performed By: #### C MP ####[facility] Rgrzivalya189248 [address] [place], [place] [address]Dr. Emelina Navarro Anion gap [Moles/Vol] 14.2 mmol/L Normal [facility] Comment on above: Performed By: #### C MP ####[facility] Iorydheoza686[address] [place], [place] [address]Dr. Emelina Navarro AST [Catalytic activity/Vol] 214 U/L Critically high 15-37 [facility] Comment on above: Performed By: #### C MP ####[facility] Sqmjxjnskq4702 [place] [id number]. Emelina Navarro Bilirubin [Mass/Vol] 0.6 mg/dL Normal 0.2-1.0 [facility] Comment on above: Performed By: #### C MP ####[facility] Zhzqprikct69[address] [place], [place] [address]Dr. Emelina Ramon Calcium [Mass/Vol] 7.9 mg/dL Critically low 8.5-10.1 [facility] Comment on above: Performed By: #### C MP ####[facility] Zlbexajqdm4788[address] [place], [place] [address]Dr. Emelina Ramon Chloride [Moles/Vol] 103 mmol/L Normal 98-107 [facility] Comment on above: Performed By: #### C MP ####[facility] Nlumuogwps119[address] [place], [place] [address]Dr. Emelina Ramno CO2 [Moles/Vol] 25.0 mmol/L Normal 21.0-32.0 [facility] Comment on above: Performed By: #### C MP ####[facility] Pqjnltnilf607[address] [place], [place] [address]Dr. Emelina Ramon Creatinine [Mass/Vol] 1.58 mg/dL Critically high 0.70-1.30 [facility] Comment on above: Performed By: #### C MP ####[facility] Ntfvwokxfu783[address] [place], [place] [address]Dr. Emelina Ramon EGFR-AF TOGOLESE 53 mL/min/1.73m2 Critically low >=60 [facility] Comment on above: Performed By: #### C MP ####[facility] Lcybettwha11[address] [place], [place] [address]Dr. Awildanitza Ramon EGFR-NON AF TOGOLESE 44 mL/min/1.73m2 Critically low >=60 [facility] Comment on above: Performed By: #### C MP ####[facility] Pxagikitea686[address] [place], [place] [address]Dr. Emelina Navarro Globulin (S) [Mass/Vol] 3.8 g/dL Normal [facility] Comment on above: Performed By: #### C MP ####[facility] Xjyxidxavt3449 [place] [address]Dr. Awildanitza Ramon Glucose [Mass/Vol] 267 mg/dL Critically high 74-106 [facility] Comment on above: Performed By: #### C MP ####[facility] Ztfacalfgu9436 [place] [address]Dr. Emelina Navarro Potassium [Moles/Vol] 3.2 mmol/L Critically low 3.5-5.1 [facility] Comment on above: Performed By: #### C MP ####[facility] Klhntjnsxn4359 [place] [address]Dr. Emelina Navarro Protein [Mass/Vol] 6.7 g/dL Normal 6.4-8.2 [facility] Comment on above: Performed By: #### C MP ####[facility] Mixaisxgei3817[address] [place], [place] [address]Dr. Emelina Navarro Sodium [Moles/Vol] 139 mmol/L Normal 136-145 [facility] Comment on above: Performed By: #### C MP ####[facility] Hnvcokrvgx629[address] [place], [place] [address]Dr. Emelina Navarro Urea nitrogen [Mass/Vol] 43.0 mg/dL Critically high 7.0-18.0 [facility] Comment on above: Performed By: #### C MP ####[facility] Ytgnqnajlr627[address] [place], [place] [address]Dr. Emelina Navarro Urea nitrogen/Creatinine [Mass ratio] 27.2 mg/mg Normal [facility] Comment on above: Performed By: #### C MP ####[facility] Woloyrfzgh4081 [place] [address]Dr. Emelina Navarro PROTIMEon 05-01-2022 INR Coag (PPP) [Relative time] 2.57 {INR} Normal [facility] Comment on above: Performed By: #### P T ####[facility] Rrbyinvwaq977348 [address] [place], [place] [address]Dr. Emelina Navarro INR GUIDELINES SEE BELOW Normal [facility] Comment on above: Result Comment: WENDY RED INR: 2.0 - 3.0 CONDITIONS NOT LISTED BELOW 2.5 - 3.5 FOR PROSTHETIC HEART VALVE REPLACEMENT 2.5 - 3.5 RECURRENT THROMBOSIS Performed By: #### P T ####[facility] Hpqkwqxxfa5647 [place] [address]DrWesley Navarro PT Coag (PPP) [Time] 26.1 s Critically high 9.0-11.6 [facility] Comment on above: Performed By: #### P T ####[facility] Sfnromjgzj3313[address] [place], [place] [address]Dr. Emelina Navarro CBC AUTO DIFFon 04-30-2022 BASO # 0.0 103/ul Normal 0.0-0.1 [facility] Comment on above: Performed By: #### C BC ####[facility] Ybmsepifxw228[address] [place], [place] [address]DrWesley Navarro Basophils/100 WBC (Bld) 0.1 % Critically low 0.2-2.0 [facility] Comment on above: Performed By: #### C BC ####[facility] Siulgonkhs814[address] [place], [place] [address]DrWesley Navarro EO # 0.0 103/ul Normal 0.0-0.7 [facility] Comment on above: Performed By: #### C BC ####[facility] Umhuuasstq416[address] [place], [place] [address]DrWesley Navarro Eosinophils/100 WBC (Bld) 0.0 % Critically low 0.9-7.0 [facility] Comment on above: Performed By: #### C BC ####[facility] Obppwpwqew830[address] [place], [place] [address]DrWesley Navarro Erythrocyte distribution width (RBC) [Ratio] 16.4 % Critically high 11.0-15.0 [facility] Comment on above: Performed By: #### C BC ####[facility] Gcqvyqtivg1859[address] [place], [place] [address]DrWesley Navarro Hematocrit (Bld) [Volume fraction] 40.9 % Critically low 42.0-54.0 [facility] Comment on above: Performed By: #### C BC ####[facility] Uhnoicbudf3967 [place] [address]Dr. Emelina Navarro Hemoglobin (Bld) [Mass/Vol] 13.3 g/dL Critically low 14.0-18.0 [facility] Comment on above: Performed By: #### C BC ####[facility] Kielytfgrc9776 [place] [address]Dr. Emelina Navarro IG # 0.11 10e3/ul Critically high 0.00-0.[address] [facility] Comment on above: Performed By: #### C BC ####[facility] Gkrrmnlqxg2427 [place] [address]Dr. Emelina Ramon IG % 0.5 % Normal 0.0-0.5 [facility] Comment on above: Performed By: #### C BC ####[facility] Dtkxilplor4313[address] [place], [place] [address]Dr. Awildanitza Ramon LYMPH # 0.8 103/ul Critically low 1.2-3.8 [facility] Comment on above: Performed By: #### C BC ####[facility] Hhqufxeqbw5949 [place] [address]Dr. Emelina Ramon Lymphocytes/100 WBC (Bld) 3.9 % Critically low 20.5-60.0 [facility] Comment on above: Performed By: #### C BC ####[facility] Jgstzpsefk801[address] [place], [place] [address]Dr. Emelina Navarro MANUAL DIFF REQ NO Normal [facility] Comment on above: Performed By: #### C BC ####[facility] Jzffqnvdcw1358[address] [place], [place] [address]Dr. Awildanitza Ramon MCH (RBC) [Entitic mass] 29.0 pg Normal 25.9-34.0 [facility] Comment on above: Performed By: #### C BC ####[facility] Xxmyrwtzay3416 [place] [address]Dr. Emleina Navarro MCHC (RBC) [Mass/Vol] 32.5 g/dL Normal 29.9-35.2 [facility] Comment on above: Performed By: #### C BC ####[facility] Bzylxoangi7333 [place] [id number]. Emelina Navarro MCV (RBC) [Entitic vol] 89.1 fL Normal 80.0-94.0 [facility] Comment on above: Performed By: #### C BC ####[facility] Ujneymrdcn8309 [place] [id number]. Emelina Navarro MONO # 0.9 103/ul Critically high 0.3-0.8 [facility] Comment on above: Performed By: #### C BC ####[facility] Umidyqpdig5664 [place] [phone]. Emelina Ramon Monocytes/100 WBC (Bld) 4.2 % Normal 1.7-12.0 [facility] Comment on above: Performed By: #### C BC ####[facility] Qofrvjbktk[address] [place], [place] [address]Dr. Emelina Navarro NEUT # 18.5 103/ul Critically high 1.4-6.5 [facility] Comment on above: Performed By: #### C BC ####[facility] Coubdqdqau9922 [place] [phone]. Emelina Ramon Neutrophils/100 WBC (Bld) 91.3 % Critically high 43.0-75.0 [facility] Comment on above: Performed By: #### C BC ####[facility] Tlytsxnfos9383 [place] [phone]. Emelina Ramon Platelet mean volume (Bld) [Entitic vol] 10.9 fL Normal 9.5-13.5 [facility] Comment on above: Performed By: #### C BC ####[facility] Xfddqvlbrw[address] [place], [place] [address]Dr. Emelina Navarro PLT 162 103/ul Normal 150-450 [facility] Comment on above: Performed By: #### C BC ####[facility] Gtyioqnevg9174 [place] [phone]. Emelina Navarro RBC 4.59 106/ul Critically low 4.70-6.10 [facility] Comment on above: Performed By: #### C BC ####[facility] Tltsczcqfi8187 [place] [phone]. Emelina Navarro WBC 20.3 103/ul Critically high 4.0-11.0 [facility] Comment on above: Performed By: #### C BC ####[facility] Pphgwoopjo8351 [place] [id number] Navarro PROF 14(COMP METB)on 022 Albumin [Mass/Vol] 2.8 g/dL Critically low 3.4-5.0 [facility] Comment on above: Performed By: #### C MP ####[facility] Heqmrqcdse6038 [place] [address]Dr. Emelina Navarro Albumin/Globulin [Mass ratio] 0.7 {ratio} Normal [facility] Comment on above: Performed By: #### C MP ####[facility] Lrjhyipllo5089 [place] [address]Dr. Emelina Navarro ALP [Catalytic activity/Vol] 65 U/L Normal 46-116 [facility] Comment on above: Performed By: #### C MP ####[facility] Qfuilyhogu7108 [place] [address]Dr. Emelina Navarro ALT [Catalytic activity/Vol] 467 U/L Critically high 16-63 [facility] Comment on above: Performed By: #### C MP ####[facility] Jvvlcynwis1638 [place] [address]Dr. Emelina Navarro Anion gap [Moles/Vol] 15.3 mmol/L Normal [facility] Comment on above: Performed By: #### C MP ####[facility] Opihucifyf2126 [place] [address]Dr. Emelina Navarro AST [Catalytic activity/Vol] 239 U/L Critically high 15-37 [facility] Comment on above: Performed By: #### C MP ####[facility] Cvqwhbvlho5170 [place] [address]Dr. Emelina Navarro Bilirubin [Mass/Vol] 0.7 mg/dL Normal 0.2-1.0 [facility] Comment on above: Performed By: #### C MP ####[facility] Vtxmkjlmgc4450 [place] [phone]. Emelina Navarro Calcium [Mass/Vol] 7.9 mg/dL Critically low 8.5-10.1 [facility] Comment on above: Performed By: #### C MP ####[facility] Fgpahhegcy7758 [place] [phone]. Emelina Ramon Chloride [Moles/Vol] 106 mmol/L Normal 98-107 [facility] Comment on above: Performed By: #### C MP ####[facility] Ajxgbjaish11[address] [place], [place] [address]Dr. Emelina Navarro CO2 [Moles/Vol] 23.3 mmol/L Normal 21.0-32.0 [facility] Comment on above: Performed By: #### C MP ####[facility] Zempduntiv612[address] [place], [place] [address]Dr. Emelina Ramon Creatinine [Mass/Vol] 1.71 mg/dL Critically high 0.70-1.30 [facility] Comment on above: Performed By: #### C MP ####[facility] Dnepejplpk19[address] [place], [place] [address]Dr. Emelina Ramon EGFR-AF TOGOLESE 49 mL/min/1.73m2 Critically low >=60 [facility] Comment on above: Performed By: #### C MP ####[facility] Cswjqcuugm827[address] [place], [place] [address]Dr. Emelina Ramon EGFR-NON AF TOGOLESE 40 mL/min/1.73m2 Critically low >=60 [facility] Comment on above: Performed By: #### C MP ####[facility] Ikbqwbqfvq4698[address] [place], [place] [address]Dr. Awildanitza Ramon Globulin (S) [Mass/Vol] 3.9 g/dL Normal [facility] Comment on above: Performed By: #### C MP ####[facility] Qefhpitycp2177 [place] [phone]. Emelina Navarro Glucose [Mass/Vol] 233 mg/dL Critically high 74-106 [facility] Comment on above: Performed By: #### C MP ####[facility] Cjgicuwbhs5143 [place] [address]Dr. Emelina Navarro Potassium [Moles/Vol] 3.6 mmol/L Normal 3.5-5.1 [facility] Comment on above: Performed By: #### C MP ####[facility] Afrsdaiqdq1215[address] [place], [place] [address]Dr. Emelina Navarro Protein [Mass/Vol] 6.7 g/dL Normal 6.4-8.2 [facility] Comment on above: Performed By: #### C MP ####[facility] Zaizgjtiic338[address] [place], [place] [address]Dr. Emelina Navarro Sodium [Moles/Vol] 141 mmol/L Normal 136-145 [facility] Comment on above: Performed By: #### C MP ####[facility] Rsuzyvutld9699[address] [place], [place] [address]Dr. Emelina Ramon Urea nitrogen [Mass/Vol] 46.0 mg/dL Critically high 7.0-18.0 [facility] Comment on above: Performed By: #### C MP ####[facility] Lnbfktiore024048 [address] [place], [place] [address]Dr. Emelina Navarro Urea nitrogen/Creatinine [Mass ratio] 26.9 mg/mg Normal [facility] Comment on above: Performed By: #### C MP ####[facility] Mpllqenyka819[address] [place], [place] [address]Dr. Awildanitza Ramon XR CHEST 2 Von 04-30-2022 XR CHEST 2 V Normal [facility] CBC AUTO DIFFon 04-29-2022 BASO # 0.0 103/ul Normal 0.0-0.1 [facility] Comment on above: Performed By: #### C BC ####[facility] Qddphsisfa8478[address] [place], [place] [address]Dr. Emelina Ramon Basophils/100 WBC (Bld) 0.1 % Critically low 0.2-2.0 [facility] Comment on above: Performed By: #### C BC ####[facility] Hytczwozli3565 [place] [phone]. Emelina Navarro EO # 0.0 103/ul Normal 0.0-0.7 [facility] Comment on above: Performed By: #### C BC ####[facility] Tbglssycoy7528 [place] [phone]. Emelina Navarro Eosinophils/100 WBC (Bld) 0.0 % Critically low 0.9-7.0 [facility] Comment on above: Performed By: #### C BC ####[facility] Hlcwwqxwua7661 [place] [address]Dr. Emelina Navarro Erythrocyte distribution width (RBC) [Ratio] 16.2 % Critically high 11.0-15.0 [facility] Comment on above: Performed By: #### C BC ####[facility] Dkesrmlpai379[address] [place], [place] [address]Dr. Emelina Navarro Hematocrit (Bld) [Volume fraction] 40.6 % Critically low 42.0-54.0 [facility] Comment on above: Performed By: #### C BC ####[facility] Bcuwppjlfs927[address] [place], [place] [address]Dr. Emelina Navarro Hemoglobin (Bld) [Mass/Vol] 13.2 g/dL Critically low 14.0-18.0 [facility] Comment on above: Performed By: #### C BC ####[facility] Ichoyzpylk4939 [place] [address]Dr. Emelina Navarro IG # 0.11 10e3/ul Critically high 0.00-0.[address] [facility] Comment on above: Performed By: #### C BC ####[facility] Etsrjxgiiz3396 [place] [phone]. Emelina Navarro IG % 0.6 % Critically high 0.0-0.5 [facility] Comment on above: Performed By: #### C BC ####[facility] Hkpzjgjcny432[address] [place], [place] [address]Dr. Emelina Navarro LYMPH # 1.1 103/ul Critically low 1.2-3.8 [facility] Comment on above: Performed By: #### C BC ####[facility] Hkupihcvsk0196 [place] [phone]. Emelina Navarro Lymphocytes/100 WBC (Bld) 5.6 % Critically low 20.5-60.0 [facility] Comment on above: Performed By: #### C BC ####[facility] Hkyvvyukmw0254 [place] [phone]. Awildanitza Navarro MANUAL DIFF REQ NO Normal [facility] Comment on above: Performed By: #### C BC ####[facility] Nfzsseohao4494 [place] [phone]. Emelina Ramon MCH (RBC) [Entitic mass] 29.1 pg Normal 25.9-34.0 [facility] Comment on above: Performed By: #### C BC ####[facility] Poanpjblvq867[address] [place], [place] [address]Dr. Emelina Ramon MCHC (RBC) [Mass/Vol] 32.5 g/dL Normal 29.9-35.2 [facility] Comment on above: Performed By: #### C BC ####[facility] Zximvmgruc2830 [place] [address]Dr. Emelina Ramon MCV (RBC) [Entitic vol] 89.4 fL Normal 80.0-94.0 [facility] Comment on above: Performed By: #### C BC ####[facility] Lbmdpulxts7604 [place] [address]Dr. Awildanitza Ramon MONO # 0.6 103/ul Normal 0.3-0.8 [facility] Comment on above: Performed By: #### C BC ####[facility] Vqaczrstpd424[address] [place], [place] [id number]. Awildanitza Navarro Monocytes/100 WBC (Bld) 3.2 % Normal 1.7-12.0 [facility] Comment on above: Performed By: #### C BC ####[facility] Soccyhjimn89264[address] [place], [place] [address]Dr. Emelina Navarro NEUT # 17.4 103/ul Critically high 1.4-6.5 [facility] Comment on above: Performed By: #### C BC ####[facility] Uyupthpfyx5456 [place], [place] [address]Hj. Emelina Navarro Neutrophils/100 WBC (Bld) 90.5 % Critically high 43.0-75.0 [facility] Comment on above: Performed By: #### C BC ####[facility] Uyitsteqgi7677 [place], [place] [address]Vh. Emelina Navarro Platelet mean volume (Bld) [Entitic vol] 10.3 fL Normal 9.5-13.5 [facility] Comment on above: Performed By: #### C BC ####[facility] Wjjpskyzog3972 [place], [place] [address]Th. Emelina Navarro PLT 175 103/ul Normal 150-450 [facility] Comment on above: Performed By: #### C BC ####[facility] Ebgpetmvxl0844 [place], [place] [address]Oy. Emelina Navarro RBC 4.54 106/ul Critically low 4.70-6.10 [facility] Comment on above: Performed By: #### C BC ####[facility] Tipzhpuzmz1256 [place], [place] [address]Yf. Emelina Navarro WBC 19.2 103/ul Critically high 4.0-11.0 [facility] Comment on above: Performed By: #### C BC ####[facility] Bkthwpnmmf6763 [place], [place] [address]Es. Emelina Navarro Covid-19 PCR (CVDTB)on 04-19 SARS-CoV-2 (COVID-19) RNA RADHA+probe Ql (Unsp spec) Not detected Normal NOT DETECTED [facility] Comment on above: Result Comment: When [...] for this test is supported by the Bulking [employer] Operator of Health and Human Service's declaration that [...] be used). Performed By: #### C VDTB ####[facility] Pqrxaoyqnd3048 [place] [address]Dr. Emelina Navarro LIPASEon 04-29-2022 Lipase [Catalytic activity/Vol] 74.0 U/L Normal 73.0-393.0 [facility] Comment on above: Performed By: #### L IPA ####[facility] Qowahdmnwt6757[address] [place], [place] [address]Dr. Emelina Navarro PROF 14(COMP METB)on 022 Albumin [Mass/Vol] 2.8 g/dL Critically low 3.4-5.0 [facility] Comment on above: Performed By: #### C MP ####[facility] Hhopegnybp213[address] [place], [place] [address]Dr. Emelina Navarro Albumin/Globulin [Mass ratio] 0.7 {ratio} Normal [facility] Comment on above: Performed By: #### C MP ####[facility] Eeyouawhjc2307[address] [place], [place] [address]Dr. Emelina Navarro ALP [Catalytic activity/Vol] 70 U/L Normal 46-116 [facility] Comment on above: Performed By: #### C MP ####[facility] Zbfgxzwmpf133148 [address] [place], [place] [address]Dr. Emelina Navarro ALT [Catalytic activity/Vol] 456 U/L Critically high 16-63 [facility] Comment on above: Performed By: #### C MP ####[facility] Soevuplwlt1800[address] [place], [place] [address]Dr. Emelina Navarro Anion gap [Moles/Vol] 14.7 mmol/L Normal [facility] Comment on above: Performed By: #### C MP ####[facility] Jnovcpspzy026[address] [place], [place] [address]Dr. Emelina Navarro AST [Catalytic activity/Vol] 388 U/L Critically high 15-37 [facility] Comment on above: Performed By: #### C MP ####[facility] Cnejdspglf6889 [place] [address]Dr. Emelina Navarro Bilirubin [Mass/Vol] 1.2 mg/dL Critically high 0.2-1.0 [facility] Comment on above: Performed By: #### C MP ####[facility] Rgpqftpcgo0268 [place] [address]Dr. Emelina Navarro Calcium [Mass/Vol] 7.8 mg/dL Critically low 8.5-10.1 [facility] Comment on above: Performed By: #### C MP ####[facility] Pqgsqyahur7725[address] [place], [place] [address]Dr. Emelina Navarro Chloride [Moles/Vol] 103 mmol/L Normal 98-107 [facility] Comment on above: Performed By: #### C MP ####[facility] Yprtkhcddq1589[address] [place], [place] [address]Dr. Emelina Navarro CO2 [Moles/Vol] 20.8 mmol/L Critically low 21.0-32.0 [facility] Comment on above: Performed By: #### C MP ####[facility] Rkvliljtut534[address] [place], [place] [address]Dr. Emelina Navarro Creatinine [Mass/Vol] 1.79 mg/dL Critically high 0.70-1.30 [facility] Comment on above: Performed By: #### C MP ####[facility] Swmdddpgwh8086 [place] [address]Dr. Emelina Ramon EGFR-AF TOGOLESE 46 mL/min/1.73m2 Critically low >=60 [facility] Comment on above: Performed By: #### C MP ####[facility] Fxwxxhyuxp6929[address] [place], [place] [address]Dr. Emelina Ramon EGFR-NON AF TOGOLESE 38 mL/min/1.73m2 Critically low >=60 [facility] Comment on above: Performed By: #### C MP ####[facility] Otmbwbcxee4550 [place] [address]Dr. Emelina Navarro Globulin (S) [Mass/Vol] 3.9 g/dL Normal [facility] Comment on above: Performed By: #### C MP ####[facility] Zhipvejyrr6858 [place] [address]Dr. Emelina Navarro Glucose [Mass/Vol] 313 mg/dL Critically high 74-106 [facility] Comment on above: Performed By: #### C MP ####[facility] Vqelqegeqf1560 [place] [address]Dr. Emelina Navarro Potassium [Moles/Vol] 3.5 mmol/L Normal 3.5-5.1 [facility] Comment on above: Performed By: #### C MP ####[facility] Vjqjfkwfew4470[address] [place], [place] [address]Dr. Emelina Navarro Protein [Mass/Vol] 6.7 g/dL Normal 6.4-8.2 [facility] Comment on above: Performed By: #### C MP ####[facility] Puzuuogiet4068[address] [place], [place] [address]Dr. Emelina Navarro Sodium [Moles/Vol] 135 mmol/L Critically low 136-145 [facility] Comment on above: Performed By: #### C MP ####[facility] Fzbluztycf3327[address] [place], [place] [address]Dr. Emelina Navarro Urea nitrogen [Mass/Vol] 41.0 mg/dL Critically high 7.0-18.0 [facility] Comment on above: Performed By: #### C MP ####[facility] Ovwrwutijy287[address] [place], [place] [address]Dr. Emelina Ramon Urea nitrogen/Creatinine [Mass ratio] 22.9 mg/mg Normal [facility] Comment on above: Performed By: #### C MP ####[facility] Iryhyvyjtd529648 [address] [place], [place] [address]Dr. Awildanitza Ramon US SINGLE QUAD RT UPPERon US SINGLE QUAD RT UPPER Normal [facility] BLOOD GASES BTYon 04-28-2022 02 MODE NASAL CANNULA Normal [facility] Comment on above: Result Comment: rese rvoir cannula Performed By: #### A BG ####[facility] Pwijcyvyds4551 [place] [address]Dr. Emelina Navarro ALLENS TEST Positive [facility] Comment on above: Performed By: #### A BG ####[facility] Hppaejwfuq4974 [place] [address]Dr. Emelina Navarro Base excess Calc (Bld) [Moles/Vol] -6.6000 mmol/L Critically low -2.0-2.0 [facility] Comment on above: Performed By: #### A BG ####[facility] Ugnqcxlhwb8044 [place] [address]Dr. Emelina Navarro BIPAP PRESSURE [facility] Comment on above: Performed By: #### A BG ####[facility] Zooospzyml8267 [place] [address]Dr. Emelina Navarro CO2 [Moles/Vol] 34.0 mmol/L Critically high 23.0-28.0 [facility] Comment on above: Performed By: #### A BG ####[facility] Nqafvyjvwa0524[address] [place], [place] [address]Dr. Emelina Navarro CPAP [facility] Comment on above: Performed By: #### A BG ####[facility] Vgwztktnqm8392 [place] [address]Dr. Emelina Navarro FIO2 [facility] Comment on above: Performed By: #### A BG ####[facility] Ociopgmvjc4914[address] [place], [place] [address]Dr. Emelina Navarro HCO3 (Bld) [Moles/Vol] 20.5 mmol/L Critically low 22.0-26.0 [facility] Comment on above: Performed By: #### A BG ####[facility] Txluiebaqy8349[address] [place], [place] [address]Dr. Emelina Navarro LPM 5 [facility] Comment on above: Performed By: #### A BG ####[facility] Qyljtjnzpz8777[address] [place], [place] [address]Dr. Emelina Navarro MINUTE VOLUME Normal [facility] Comment on above: Performed By: #### A BG ####[facility] Ndsncfvmhf3887 [place] [address]Dr. Emelina Navarro Oxygen (Bld) [Partial pressure] 62.0 mm[Hg] Critically low 80.0-100.0 [facility] Comment on above: Performed By: #### A BG ####[facility] Plbhjicbnq715[address] [place], [place] [address]Dr. Emelina Navarro Oxygen saturation in Blood 92.6 % Critically low 95.0-100.0 [facility] Comment on above: Performed By: #### A BG ####[facility] Rklgvhfvnb30224[address] [place], [place] [address]Dr. Emelina Navarro PCO2 25.7 mmHg Critically low 35.0-45.0 [facility] Comment on above: Performed By: #### A BG ####[facility] Srvdmtoygg712[address] [place], [place] [address]Dr. Emelina Navarro PEEP [facility] Comment on above: Performed By: #### A BG ####[facility] Vsbrebjeyj8216[address] [place], [place] [address]Dr. Emelina Navarro pH (Bld) 7.443 [pH] Normal 7.350-7.45 0 [facility] Comment on above: Performed By: #### A BG ####[facility] Xajnyxrkgj970[address] [place], [place] [address]Dr. Emelina Navarro PIP [facility] Comment on above: Performed By: #### A BG ####[facility] Rnwxjzwvht0788[address] [place], [place] [address]Dr. Emelina Navarro PS [facility] Comment on above: Performed By: #### A BG ####[facility] Capklfdmfb409[address] [place], [place] [address]Dr. Emelina Navarro PUNCTURE SITE LR Normal [facility] Comment on above: Performed By: #### A BG ####[facility] Wcshnpxfvy9980[address] [place], [place] [address]Dr. Emelina Navarro RATE Normal [facility] Comment on above: Performed By: #### A BG ####[facility] Nyyihzbtcm5167 [place] [address]Dr. Emelina Navarro VENT MODE Normal [facility] Comment on above: Performed By: #### A BG ####[facility] Xgnjiaofva6286 [place] [address]Dr. Emelina Navarro [place] Normal [facility] Comment on above: Performed By: #### A BG ####[facility] Xpbrumfcjs3018 [place] [address]Dr. Emelina Navarro BNPon 04-28-2022 Natriuretic peptide B (Bld) [Mass/Vol] 34203.0 pg/mL Critically high <=900.0 [facility] Comment on above: Performed By: #### C MP, BNP, CMADM ####[facility] Wbjrusxrnt8452 [place] [address]Dr. Emelina Navarro CARDIAC IMTIAZ ADMITon 022 CK [Catalytic activity/Vol] 86 U/L Normal 39-308 [facility] Comment on above: Performed By: #### C MP, BNP, CMADM ####[facility] Uzntpvrgol5554 [place] [address]Dr. Emelina Navarro CK.MB [Mass/Vol] 1.41 ng/mL Normal <=3.60 [facility] Comment on above: Performed By: #### C MP, BNP, CMADM ####[facility] Gjxnlagfbr7865 [place] [address]Dr. Emelina Navarro HSTROP 63.7 pg/mL Normal 4.0-76.1 [facility] Comment on above: Result Comment: CUT- OFF POINTS HAVE BEEN ESTABLISHED BASED ON THE FOURTH UNIVERSAL DEFINITIONS OF MYOCARDIALINFARCTION. THE UPPER REFERENCE LIMIT (URL) OF TROPONIN, DEFINED THE 99TH PERCENTILE OFcTnI DISTRIBUTION IN A REFERENCE POPULATION, HAS BEEN CONFIRMED THE DECISION THRESHOLDFOR OR DIAGNOSIS. Performed By: #### C MP, BNP, CMADM ####[facility] Sdoouocwez3627 [place] [address]Dr. Emelina Navarro URBANO 276 ng/mL Critically high 16-96 [facility] Comment on above: Performed By: #### C MP, BNP, CMADM ####[facility] Udzhrfgjau7770 [place] [phone]. Emelina Ramon CBC AUTO DIFFon 04-28-2022 BASO # 0.0 103/ul Normal 0.0-0.1 [facility] Comment on above: Performed By: #### C BC ####[facility] Srwlelyqth0521 [place] [phone]. Emelina Navarro Basophils/100 WBC (Bld) 0.2 % Normal 0.2-2.0 [facility] Comment on above: Performed By: #### C BC ####[facility] Fwpncgijnz3649 [place] [address]Dr. Awildanitza Navarro EO # 0.0 103/ul Normal 0.0-0.7 [facility] Comment on above: Performed By: #### C BC ####[facility] Kwcbuqxpeb7819 [place] [address]Dr. Emelina Navarro Eosinophils/100 WBC (Bld) 0.1 % Critically low 0.9-7.0 [facility] Comment on above: Performed By: #### C BC ####[facility] Anpaaubrpu5823[address] [place], [place] [address]Dr. Awildanitza Navarro Erythrocyte distribution width (RBC) [Ratio] 16.5 % Critically high 11.0-15.0 [facility] Comment on above: Performed By: #### C BC ####[facility] Epgcquavjy[address] [place], [place] [address]Dr. Emelina Navarro Hematocrit (Bld) [Volume fraction] 45.2 % Normal 42.0-54.0 [facility] Comment on above: Performed By: #### C BC ####[facility] Xijfbemcrd717[address] [place], [place] [address]Dr. Emelina Navarro Hemoglobin (Bld) [Mass/Vol] 14.8 g/dL Normal 14.0-18.0 [facility] Comment on above: Performed By: #### C BC ####[facility] Fypzzxnhkq4[address] [place], [place] [address]Dr. Emelina Navarro IG # 0.14 10e3/ul Critically high 0.00-0.[address] [facility] Comment on above: Performed By: #### C BC ####[facility] Wntebpdtsx4126 [place] [phone] Awildanitza Navarro IG % 0.9 % Critically high 0.0-0.5 [facility] Comment on above: Performed By: #### C BC ####[facility] Ffrubkoutu3286 [place] [phone] Emelina Ramon LYMPH # 0.8 103/ul Critically low 1.2-3.8 [facility] Comment on above: Performed By: #### C BC ####[facility] Gtyaoepklg4993 [place] [phone] Awildanitza Navarro Lymphocytes/100 WBC (Bld) 5.1 % Critically low 20.5-60.0 [facility] Comment on above: Performed By: #### C BC ####[facility] Qygibnohgb1834 [place] [phone] Navarro MANUAL DIFF REQ NO Normal [facility] Comment on above: Performed By: #### C BC ####[facility] Vjdxdqybgn0466 [place] [phone] Emelina Ramon MCH (RBC) [Entitic mass] 29.3 pg Normal 25.9-34.0 [facility] Comment on above: Performed By: #### C BC ####[facility] Xpkvurkuww2183 [place] [phone] Emelina Ramon MCHC (RBC) [Mass/Vol] 32.7 g/dL Normal 29.9-35.2 [facility] Comment on above: Performed By: #### C BC ####[facility] Hsblipuvjw2129 [place] [phone] Awildanitza Navarro MCV (RBC) [Entitic vol] 89.5 fL Normal 80.0-94.0 [facility] Comment on above: Performed By: #### C BC ####[facility] Qiobzavkbv4725 [place] [phone] Navarro MONO # 1.1 103/ul Critically high 0.3-0.8 [facility] Comment on above: Performed By: #### C BC ####[facility] Cxuivkfwfn0146 [place] [phone]. Emelina Navarro Monocytes/100 WBC (Bld) 7.0 % Normal 1.7-12.0 [facility] Comment on above: Performed By: #### C BC ####[facility] Ptmmsiuhzz9464 [place] [phone]. Emelina Navarro NEUT # 13.3 103/ul Critically high 1.4-6.5 [facility] Comment on above: Performed By: #### C BC ####[facility] Cmeopdccxv2161 [place] [address]Dr. Emelina Navarro Neutrophils/100 WBC (Bld) 86.7 % Critically high 43.0-75.0 [facility] Comment on above: Performed By: #### C BC ####[facility] Jqipvixlzw7598 [place] [address]Dr. Emelina Navarro Platelet mean volume (Bld) [Entitic vol] 10.7 fL Normal 9.5-13.5 [facility] Comment on above: Performed By: #### C BC ####[facility] Ehyfxjxonq5929 [place] [address]Dr. Emelina Navarro PLT 200 103/ul Normal 150-450 [facility] Comment on above: Performed By: #### C BC ####[facility] Czazotrbzp3813 [place] [phone]. Emelina Navarro RBC 5.05 106/ul Normal 4.70-6.10 [facility] Comment on above: Performed By: #### C BC ####[facility] Pfkqxelwqk4319 [place] [phone]. Emelina Navarro WBC 15.4 103/ul Critically high 4.0-11.0 [facility] Comment on above: Performed By: #### C BC ####[facility] Wtxxtbjhxk0505 [place] [phone]. Emelina Navarro CULTURE BLOODon 04-28-2022 Microscopic examination of blood, culture Culture Observations: NO GROWTH AT 5 DAYS. Normal [facility] Comment on above: Performed By: #### B LDCX2 ####[facility] Cuspqlxtpm3538 [place] [phone]. Emelina Navarro Microscopic examination of blood, culture Culture Observations: NO GROWTH AT 5 DAYS. Normal [facility] Comment on above: Performed By: #### B LDCX1 ####[facility] Qdkspcqerv6057 [place] [phone]. Emelina Navarro Covid-19 PCR (CVDTBH)on 04-19 SARS-CoV-2 (COVID-19) RNA RADHA+probe Ql (Unsp spec) Not detected Normal NOT DETECTED [facility] Comment on above: Result Comment: When [...] for this test is supported by the Bulking [employer] Operator of Health and Human Service's declaration that [...] be used). Performed By: #### C VDTBH ####[facility] Jarlfewtqc1340 [place] [phone]. Emelina Navarro DIGOXINon 04-28-2022 DIG 0.8 ng/mL Critically low 0.9-2.0 [facility] Comment on above: Performed By: #### D IG ####[facility] Ghvmcfbhrd5733 [place] [phone]. Emelina Navarro ER URINE PROFILEon 2 Bilirubin Ql (U) Negative Normal NEGATIVE The [facility] Comment on above: Performed By: #### E PATRIZIA POLK ####[facility] [address]cj[address]zgz[address] [place] [address]Dr. Emelina Navarro Clarity (U) CLEAR Normal CLEAR [facility] Comment on above: Performed By: #### LINDSAY BOLANDRO ####[facility] Pfecnrgsoh[address] [place] [address]Dr. Emelina Navarro Color (U) YELLOW Normal YELLOW [facility] Comment on above: Performed By: #### LINDSAY BOLANDRO ####[facility] Pudvexmzcf[address] [place], [place] [address]Dr. Emelina Navarro ERUAHD A micrscopic examina tion will be performed if indicated. Normal [facility] Comment on above: Performed By: #### LINDSAY BOLANDRO ####[facility] Hhwaouhpqi[address] [place], [place] [address]Dr. Emelina Navarro Glucose Ql (U) 500 mg/dl Abnormal NEGATIVE [facility] Comment on above: Performed By: #### LINDSAY BOLANDRO ####[facility] Fdoctburxk[address] [place], [place] [address]Dr. Emelina Navarro Hemoglobin Ql (U) MODERATE Abnormal NEGATIVE The [facility] Comment on above: Performed By: #### LINDSAY BOLANDRO ####[facility] Nnswagewvy87[address] [place], [place] [address]Dr. Emelina Navarro Ketones Ql (U) Negative Normal NEGATIVE [facility] Comment on above: Performed By: #### LINDSAY BOLANDRO ####[facility] Gidmktjwm[address] [place], [place] [address]Dr. Awildalan Navarro LEUKOCYTES Negative Normal NEGATIVE [facility] Comment on above: Performed By: #### LINDSAY BOLANDRO ####[facility] Koidpcxkgh9[address] [place], [place] [address]Dr. Emelina Navarro Nitrite Ql (U) Negative Normal NEGATIVE [facility] Comment on above: Performed By: #### LINDSAY BOLANDRO ####[facility] Muxnepwbsw[address] [place], [place] [address]Dr. Emelina Navarro pH (U) 5.0 [pH] Normal 5-9 [facility] Comment on above: Performed By: #### PATRIZIA BOLAND ####[facility] Kigrokhinz[address] [place] [address]Dr. Emelina Navarro Protein (U) [Mass/Vol] 100 mg/dL Abnormal NEGATIVE/ TRACE [facility] Comment on above: Performed By: #### PATRIZIA BOLAND ####[facility] Wbijrfkwnw[address] [place], [place] [address]Dr. Emelina Navarro SPEC GRAVITY 1.025 Normal 1.005-<=1. 025 [facility] Comment on above: Performed By: #### PATRIZIA BOLAND ####[facility] Fdjdtnlwfg[address] [place], [place] [address]Dr. Emelina Navarro UR MICRO IND INDICATED Normal [facility] Comment on above: Performed By: #### PATRIZIA BOLAND ####[facility] Uctdlnfpbn[address] [place], [place] [address]Dr. Emelina Navarro Urobilinogen Qn (U) 0.2 {Ashley'U}/dL Normal 0.2 - 1. 0 [facility] Comment on above: Performed By: #### PATRIZIA BOLAND ####[facility] Ukuokoxdak[address] [place], [place] [address]Dr. Emelina Navarro LACTATE/LACTIC ACIDon 2021 Lactate [Moles/Vol] 5.1 mmol/L Critically high 0.4-1.9 [facility] Comment on above: Performed By: #### L ACT ####[facility] Oprhjllvxq[address] [place], [place] [address]Dr. Emelina Navarro Lactate [Moles/Vol] 4.8 mmol/L Critically high 0.4-1.9 [facility] Comment on above: Performed By: #### L ACT ####[facility] Yoogwtcegv5[address] [place], [place] [address]Dr. Emelina Navarro Lactate [Moles/Vol] 5.4 mmol/L Critically high 0.4-1.9 [facility] Comment on above: Performed By: #### L ACT ####[facility] [address]qq[address]im[address] [place] [address]Dr. Emelina Navarro POINT OF CARE GLUCOSEon 04-19 Glucose [Mass/Vol] 426 mg/dL Critically high 74-106 [facility] Comment on above: Performed By: #### P OCGLUC ####[facility] H[address]uliqcqp[address] [place] [address]Dr. Emelina Navarro Glucose [Mass/Vol] 476 mg/dL Critically high 74-106 [facility] Comment on above: Performed By: #### P OCGLUC ####[facility] Sylodxyuly25[address] [place] [address]Dr. Emelina Navarro Glucose [Mass/Vol] 347 mg/dL Critically high 74-106 [facility] Comment on above: Performed By: #### P OCGLUC ####[facility] Weiwmybtpc[address] [place] [address]Dr. Emelina Navarro PROF 14(COMP METB)on 022 Albumin [Mass/Vol] 3.4 g/dL Normal 3.4-5.0 [facility] Comment on above: Performed By: #### C MP, BNP, CMADM ####[facility] [address]jtt[address] [place] [address]Dr. Emelina Navarro Albumin/Globulin [Mass ratio] 0.8 {ratio} Normal [facility] Comment on above: Performed By: #### C MP, BNP, CMADM ####[facility] Rzlgot[address]jts[address] [place] [address]Dr. Emelina Navarro ALP [Catalytic activity/Vol] 85 U/L Normal 46-116 [facility] Comment on above: Performed By: #### C MP, BNP, CMADM ####[facility] Epiducfqxy[address] [place] [address]Dr. Emelina Navarro ALT [Catalytic activity/Vol] 246 U/L Critically high 16-63 [facility] Comment on above: Performed By: #### C MP, BNP, CMADM ####[facility] [address]alwkhcx[address] [place] [address]Dr. Emelina Navarro Anion gap [Moles/Vol] 20.7 mmol/L Normal [facility] Comment on above: Performed By: #### C MP, BNP, CMADM ####[facility] Elawjvvjax[address] [place] [address]Dr. Emelina Navarro AST [Catalytic activity/Vol] 299 U/L Critically high 15-37 [facility] Comment on above: Performed By: #### C MP, BNP, CMADM ####[facility] Msvyeieyte4[address] [place] [address]Dr. Emelina Navarro Bilirubin [Mass/Vol] 2.7 mg/dL Critically high 0.2-1.0 [facility] Comment on above: Performed By: #### C MP, BNP, CMADM ####[facility] Kpvfvfdzjm[address] [place], [place] [address]Dr. Emelina Navarro Calcium [Mass/Vol] 8.5 mg/dL Normal 8.5-10.1 [facility] Comment on above: Performed By: #### C MP, BNP, CMADM ####[facility] Qydxhxztjc[address] [place] [address]Dr. Emelina Navarro Chloride [Moles/Vol] 96 mmol/L Critically low 98-107 [facility] Comment on above: Performed By: #### C MP, BNP, CMADM ####[facility] Qjjcukefaf25[address] [place] [address]Dr. Emelina Navarro CO2 [Moles/Vol] 19.3 mmol/L Critically low 21.0-32.0 [facility] Comment on above: Performed By: #### C MP, BNP, CMADM ####[facility] Iztzasuwoq[address] [place] [address]Dr. Emelina Navarro Creatinine [Mass/Vol] 2.46 mg/dL Critically high 0.70-1.30 [facility] Comment on above: Performed By: #### C MP, BNP, CMADM ####[facility] [address]ufubquldz[address] [place] [address]Dr. Emelina Navarro EGFR-AF TOGOLESE 32 mL/min/1.73m2 Critically low >=60 [facility] Comment on above: Performed By: #### C MP, BNP, CMADM ####[facility] X[address]ejf[address] [place] [address]Dr. Emelina Navarro EGFR-NON AF TOGOLESE 26 mL/min/1.73m2 Critically low >=60 [facility] Comment on above: Performed By: #### C MP, BNP, CMADM ####[facility] Effjybhtgl[address] [place] [address]Dr. Emelina Navarro Globulin (S) [Mass/Vol] 4.4 g/dL Normal [facility] Comment on above: Performed By: #### C MP, BNP, CMADM ####[facility] Pforydhnjb[address] [place] [address]Dr. Emelina Navarro Glucose [Mass/Vol] 359 mg/dL Critically high 74-106 [facility] Comment on above: Performed By: #### C MP, BNP, CMADM ####[facility] Fytsyvhzjo[address] [place], [place] [address]Dr. Emelina Navarro Potassium [Moles/Vol] 7.0 mmol/L Critically high 3.5-5.1 [facility] Comment on above: Performed By: #### C MP, BNP, CMADM ####[facility] Lpewfobjnx[address] [place], [place] [address]Dr. Emelina Navarro Protein [Mass/Vol] 7.8 g/dL Normal 6.4-8.2 [facility] Comment on above: Performed By: #### C MP, BNP, CMADM ####[facility] Er[address]rbrsz[address] [place] [address]Dr. Emelina Navarro Sodium [Moles/Vol] 129 mmol/L Critically low 136-145 [facility] Comment on above: Performed By: #### C MP, BNP, CMADM ####[facility] Hrmgdglbfs9[address] [place], [place] [address]Dr. Emelina Navarro Urea nitrogen [Mass/Vol] 37.0 mg/dL Critically high 7.0-18.0 [facility] Comment on above: Performed By: #### C MP, BNP, CMADM ####[facility] Bqf[address]rdqo[address] [place] [id number]. Emelina Navarro Urea nitrogen/Creatinine [Mass ratio] 15.0 mg/mg Normal [facility] Comment on above: Performed By: #### C MP, BNP, CMADM ####[facility] Flgzuerzps[address] [place] [address]Dr. Emelina Navarro PROF CHEM 8 (BAS METB)on Anion gap [Moles/Vol] 19.2 mmol/L Normal [facility] Comment on above: Performed By: #### B MP ####[facility] Ipbsuhqdxu[address] [place] [address]Dr. Emelina Navarro Calcium [Mass/Vol] 7.7 mg/dL Critically low 8.5-10.1 [facility] Comment on above: Performed By: #### B MP ####[facility] Jakpnacxmp[address] [place], [place] [address]Dr. Emelina Navarro Chloride [Moles/Vol] 97 mmol/L Critically low 98-107 [facility] Comment on above: Performed By: #### B MP ####[facility] Lkgeojyshp3[address] [place] [address]Dr. Emelina Navarro CO2 [Moles/Vol] 20.5 mmol/L Critically low 21.0-32.0 [facility] Comment on above: Performed By: #### B MP ####[facility] Rnuqpzkxgy[address] [place] [address]Dr. Emelina Navarro Creatinine [Mass/Vol] 2.18 mg/dL Critically high 0.70-1.30 [facility] Comment on above: Performed By: #### B MP ####[facility] Wqfrycetsd[address] [place] [address]Dr. Emelina Navarro EGFR-AF TOGOLESE 37 mL/min/1.73m2 Critically low >=60 [facility] Comment on above: Performed By: #### B MP ####[facility] Gmrkfmypok[address] [place] [address]Dr. Emelina Navarro EGFR-NON AF TOGOLESE 30 mL/min/1.73m2 Critically low >=60 [facility] Comment on above: Performed By: #### B MP ####[facility] Igokdbulaa43[address] [place] [address]Dr. Emelina Navarro Glucose [Mass/Vol] 434 mg/dL Critically high 74-106 [facility] Comment on above: Performed By: #### B MP ####[facility] Rnzghyppbj15[address] [place] [address]Dr. Emelina Navarro Potassium [Moles/Vol] 4.7 mmol/L Normal 3.5-5.1 [facility] Comment on above: Performed By: #### B MP ####[facility] Efkwwuvypj[address] [place], [place] [address]Dr. Emelina Navarro Sodium [Moles/Vol] 132 mmol/L Critically low 136-145 [facility] Comment on above: Performed By: #### B MP ####[facility] Wwiezmuukm18[address] [place], [place] [address]Dr. Emelina Navarro Urea nitrogen [Mass/Vol] 37.0 mg/dL Critically high 7.0-18.0 [facility] Comment on above: Performed By: #### B MP ####[facility] Ykmyhckmhk[address] [place], [place] [address]Dr. Emelina Navarro Urea nitrogen/Creatinine [Mass ratio] 17.0 mg/mg Normal [facility] Comment on above: Performed By: #### B MP ####[facility] Ogjqcvtgle[address] [place], [place] [address]Dr. Emelina Navarro PROTIMEon 04-28-2022 INR Coag (PPP) [Relative time] 1.91 {INR} Normal [facility] Comment on above: Performed By: #### P TT, PT ####[facility] Brnnyrkqgv[address] [place], [place] [address]Dr. Emelina Navarro INR GUIDELINES SEE BELOW Normal [facility] Comment on above: Result Comment: WENDY RED INR: 2.0 - 3.0 CONDITIONS NOT LISTED BELOW 2.5 - 3.5 FOR PROSTHETIC HEART VALVE REPLACEMENT 2.5 - 3.5 RECURRENT THROMBOSIS Performed By: #### P TT, PT ####[facility] Vudufyjett[address] [place], [place] [address]Dr. Emelina Navarro PT Coag (PPP) [Time] 19.8 s Critically high 9.0-11.6 [facility] Comment on above: Performed By: #### P TT, PT ####[facility] Qhoblwraqn[address] [place], [place] [address]Dr. Emelina Navarro PTTon 04-28-2022 aPTT Coag (Bld) [Time] 33.0 s Normal 22.3-36.2 [facility] Comment on above: Performed By: #### P TT, PT ####[facility] Atlbrlkqgo13[address] [place], [place] [address]Dr. Emelina Navarro RESPIRATORY PANEL PLUSon Adenovirus Not detected Normal NOT DETECTED [facility] Comment on above: Performed By: #### R SPLUS ####[facility] Bwpttkhyvb[address] [place], [place] [address]Dr. Emelina Navarro B. Parapertusis Not detected Normal NOT DETECTED [facility] Comment on above: Performed By: #### R SPLUS ####[facility] Nxhzajewne[address] [place], [place] [address]Dr. Emelina Navarro B. Pertussis Not detected Normal NOT DETECTED [facility] Comment on above: Performed By: #### R SPLUS ####[facility] Iprbpoovzu[address] [place], [place] [address]Dr. Emelina Navarro Chlamydia Pneumoniae Not detected Normal NOT DETECTED [facility] Comment on above: Performed By: #### R SPLUS ####[facility] Iughdjdfiw170[address] [place], [place] [address]Dr. Emelina Navarro Coronavirus 229E Not detected Normal NOT DETECTED [facility] Comment on above: Performed By: #### R SPLUS ####[facility] Yvcirfqotq84[address] [place], [place] [address]Dr. Emelina Navarro Coronavirus HKU1 Not detected Normal NOT DETECTED [facility] Comment on above: Performed By: #### R SPLUS ####[facility] Webpobabko99364[address] [place], [place] [address]Dr. Emelina Navarro Coronavirus NL63 Not detected Normal NOT DETECTED [facility] Comment on above: Performed By: #### R SPLUS ####[facility] Cvqvxjtzda[address] [place], [place] [address]Dr. Emelina Navarro Coronavirus OC43 Not detected Normal NOT DETECTED [facility] Comment on above: Performed By: #### R SPLUS ####[facility] Qvtxryspaj5612[address] [place], [place] [address]Dr. Emelina Navarro Influenza A H1 2009 Not detected Normal NOT DETECTED [facility] Comment on above: Performed By: #### R SPLUS ####[facility] Qabjibofpg8864[address] [place], [place] [address]Dr. Emelina Nvaarro Influenza A H3 Not detected Normal NOT DETECTED [facility] Comment on above: Performed By: #### R SPLUS ####[facility] Oszualyysa6501[address] [place], [place] [address]Dr. Emelina Navarro Influenza B Not detected Normal NOT DETECTED [facility] Comment on above: Performed By: #### R SPLUS ####[facility] Tkhasonafg[address] [place], [place] [address]Dr. Emelina Navarro Metapneumovirus Not detected Normal NOT DETECTED [facility] Comment on above: Performed By: #### R SPLUS ####[facility] Vzcttvkvjt538[address] [place], [place] [address]Dr. Emelina Navarro Mycoplas. Pneumoniae Not detected Normal NOT DETECTED [facility] Comment on above: Performed By: #### R SPLUS ####[facility] Bskvjbaofe[address] [place], [place] [address]Dr. Emelina Navarro Parainfluenza 1 Not detected Normal NOT DETECTED [facility] Comment on above: Performed By: #### R SPLUS ####[facility] Meubxadcrw[address] [place], [place] [address]Dr. Emelina Navarro Parainfluenza 2 Not detected Normal NOT DETECTED [facility] Comment on above: Performed By: #### R SPLUS ####[facility] Hekwcxylyc06[address] [place], [place] [address]Dr. Emelian Navarro Parainfluenza 3 Detected Abnormal NOT DETECTED [facility] Comment on above: Performed By: #### R SPLUS ####[facility] [address]ctiidkob[address] [place] [address]Dr. Emelina Navarro Parainfluenza 4 Not detected Normal NOT DETECTED [facility] Comment on above: Performed By: #### R SPLUS ####[facility] Qqgnipoaza386[address] [place], [place] [address]Dr. Emelina Navarro Rhino/Enterovirus Not detected Normal NOT DETECTED [facility] Comment on above: Performed By: #### R SPLUS ####[facility] Onfbmmlggk132[address] [place], [place] [address]Dr. Emelina Navarro RP2 Header 1 RESPIRATORY PANEL: VIRUSES Normal [facility] Comment on above: Performed By: #### R SPLUS ####[facility] Bmgxafgcws[address] [place], [place] [address]Dr. Emelina Navarro RP2 Header 2 RESPIRATORY PANEL: BACTERIA Normal [facility] Comment on above: Performed By: #### R SPLUS ####[facility] Xuyopdanll[address] [place], [place] [address]Dr. Emelina Navarro RSV Not detected Normal NOT DETECTED [facility] Comment on above: Performed By: #### R SPLUS ####[facility] Zvlkmubikx69[address] [place], [place] [address]Dr. Emelina Navarro SARS-CoV-2 (COVID-19) RNA RADHA+probe Ql (Unsp spec) Not detected Normal NOT DETECTED [facility] Comment on above: Performed By: #### R SPLUS ####[facility] Emdsexxvyp[address] [place], [place] [address]Dr. Emelina Navarro URINE MICROSCOPIC ONLYon BACTERIA NONE SEEN Normal NONE SEEN [facility] Comment on above: Performed By: #### PATRIZIA BOLAND ####[facility] Nbsgooanmd[address] [place], [place] [address]Dr. Emelina Navarro Bacteria identified Cx Nom (U) NOT INDICATED Normal [facility] Comment on above: Performed By: #### PATRIZIA BOLAND ####[facility] Uvzik[address]hzw[address] [place], [place] [address]Dr. Emelina Navarro CAST SEEN Abnormal NONE SEEN [facility] Comment on above: Performed By: #### Hitesh POLK UMICRO ####[facility] Ujqmobgwyr[address] [place] [address]Dr. Emelina Navarro Crystals LM Nom (Urine sed) NONE SEEN Normal NONE SEEN [facility] Comment on above: Performed By: #### Hitesh POLK UMICRO ####[facility] Tfnncfxvmg[address] [place] [address]Dr. Emelina Navarro Epithelial cells LM Ql (Urine sed) FEW Abnormal NONE SEEN /RARE [facility] Comment on above: Performed By: #### Hitesh POLK UMICRO ####[facility] Jswqqxlnca[address] [place] [address]Dr. Emelina Navarro HYALINE CAST MANY Normal [facility] Comment on above: Performed By: #### Hitesh POLK UMICRO ####[facility] Pscxhfosga[address] [place] [address]Dr. Emelina Navarro MUCOUS NONE SEEN Normal NONE SEEN [facility] Comment on above: Performed By: #### Hitesh POLK UMICRO ####[facility] Lbrezewxhx[address] [place], [place] [address]Dr. Emelina Navarro RBC 0-2 Normal 0-2 [facility] Comment on above: Performed By: #### Hitesh POLK UMICRO ####[facility] Yvrtsxuntb5136 [place] [address]Dr. Emelina Navarro WBC 0-2 Abnormal NONE SEEN [facility] Comment on above: Performed By: #### Hitesh POLK UMICRO ####[facility] Jumdrzsfvb[address] [place], [place] [address]Dr. Emelina Navarro XR CHEST 1 Von 04-28-2022 XR CHEST 1 V Normal [facility] Albumin [Mass/volume] in Ser um or PlasmaOrdered By: Ethan Cummings on 04-10-2022 Albumin [Mass/Vol] 3.8 g/dL 2.9-4.4 [facility] IgA [Mass/volume] in Serum o r PlasmaOrdered By: Ethan Cummings on 04-10-2022 IgA [Mass/Vol] 607 mg/dL 61-[address] [facility] IgG [Mass/volume] in Serum o r PlasmaOrdered By: Ethan Cummings on 04-10-2022 IgG [Mass/Vol] 1207 mg/dL 603-[address] [facility] IgM [Mass/volume] in Serum o r PlasmaOrdered By: Ethan Cummings on 04-10-2022 IgM [Mass/Vol] 94 mg/dL 20-[address] [facility] Comment on above: Performed at: [facility] [address] [id number] Director: Alexis Winslow PhD, Phone: [phone] Immunoglobulin light chains. kappa.free [Mass/volume] in SerumOrdered By: Ethan Cummings on 04-10-2022 Immunoglobulin light chains.kappa.free (S) [Mass/Vol] 58.6 mg/L 3.3-19.[address] [facility] Immunoglobulin light chains. kappa.free/Immunoglobulin light chains.lambda.free [MassOrdered By: Ethan Cummings on 04-10-2022 Immunoglobulin light chains.kappa.free/Imm unoglobulin light chains.lambda.free (S) [Mass ratio] 1.42 0.26-1.[address] [facility] Comment on above: Performed at: [facility] [address] [id number] Director: Alexis Winslow PhD, Phone: [phone] Immunoglobulin light chains. lambda.free [Mass/volume] in Serum or PlasmaOrdered By: Ethan Cummings on 04-10-2022 Immunoglobulin light chains.lambda.free [Mass/Vol] 41.2 mg/L 5.7-26.[address] [facility] Laboratory - Hematology and Cell countsOrdered By: Ethan Cummings on 04-10-2022 Nucleated RBC/100 WBC (Bld) [Ratio] 0.0 % 0-0.[address] [facility] No Panel InformationOrdered By: Ethan Cummings on 04-10-2022 BCR/abl See comment [facility] Comment on above: See report. Scanned copy available in EMR. CBC Comment See comment [facility] Comment on above: Slide referred to raquel belcher for review Platelet Estimate Normal Normal [facility] Platelet Morphology Comment Normal Normal [facility] Protein Electrophoresis M-Brenden Not observed g/dL Not Observed [facility] Protein Electrophoresis Note See comment . [facility] Comment on above: Protein electrophore sis scan will follow via computer,mail, or sales vendor delivery.Performed at: [facility] [place] [id number] Director: Alexis Winslow PhD, Phone: [phone] Serum Immunofixation See comment . [facility] Comment on above: No monoclonality det ected. Protein [Mass/volume] in Ser um or PlasmaOrdered By: Ethan Cummings on 04-10-2022 Protein [Mass/Vol] 7.4 g/dL 6.0-8.5 [facility] RBC morphologyOrdered By: Francis Cummings on 04-10-2022 RBC morphology finding Nom (Bld) Normal [facility] Serum globulin measurement ( mass/volume)Ordered By: Ethan Cummings on 04-10-2022 Globulin (S) [Mass/Vol] 3.6 g/dL 2.2-3.[address] [facility] Serum or plasma albumin/glob ulin mass ratioOrdered By: Ethan Cummings on 04-10-2022 Albumin/Globulin [Mass ratio] 1.1 {ratio} 0.7-1.[address] [facility] Serum or plasma alpha 1 glob ulin measurement by electrophoresis (mass/volume)Ordered By: Ethan Cummings on 04-10-2022 Alpha 1 globulin Elph [Mass/Vol] 0.2 g/dL 0.0-0.[address] [facility] Serum or plasma alpha 2 glob ulin measurement by electrophoresis (mass/volume)Ordered By: Ethan Cummings on 04-10-2022 Alpha 2 globulin Elph [Mass/Vol] 0.9 g/dL 0.4-1.[address] [facility] Serum or plasma beta globuli n measurement by electrophoresis (mass/volume)Ordered By: Ethan Cummings on 04-10-2022 Beta globulin Elph [Mass/Vol] 1.2 g/dL 0.7-1.[address] [facility] Serum or plasma gamma globul in measurement by electrophoresis (mass/volume)Ordered By: Ethan Cummings on 04-10-2022 Gamma globulin Elph [Mass/Vol] 1.3 g/dL 0.4-1.[address] [facility] Serum or plasma methylmalona te measurement (moles/volume)Ordered By: Ethan Cummings on 04-10-2022 Methylmalonate [Moles/Vol] 668 nmol/L 0-[address] [facility] Comment on above: This test was develo ped and its performance characteristicsdetermined by [employer]. It has not been cleared orapproved by the Food and Drug Administration.Performed at: [address] [id number] Director: Natalia Vergara MD, Phone: [phone] XR foot LT min 3V*on 022 XR foot LT min 3V* [facility] [employer] Tada Other XR foot LT min 3V* [facility] [employer] Other XR foot LT min 3V* [address] [place] [address] [employer] Other XR foot LT min 3V* [place] [address] [employer] Other XR foot LT min 3V* XRay Report [employer] Other XR foot LT min 3V* Signed [employer] Other XR foot LT min 3V* Patient: Adwoa Porter MR#: [id number] [employer] Other XR foot LT min 3V* 7 [employer] Other XR foot LT min 3V* : 1955 Acct:[id number] [employer] Other XR foot LT min 3V* Age/Sex: 66 / M ADM Date: 02/19/22 [employer] Other XR foot LT min 3V* Loc: [facility] Room: Ty pe: REG CLI [employer] Other XR foot LT min 3V* Attending Dr: Ruthie EUCEDA [employer] Other XR foot LT min 3V* Ordering Provider: KINSEY Jiménez [employer] Other XR foot LT min 3V* Date of Service: 02/19/22 [employer] Other XR foot LT min 3V* [id number]) XR/XR foot LT min 3V*: Left foot pain [employer] Other XR foot LT min 3V* Copies to: KINSEY Mancia [employer] Other XR foot LT min 3V* LEFT FOOT - 3 views [employer] Other XR foot LT min 3V* CLINICAL HISTORY: Le ft foot pain. [employer] Other XR foot LT min 3V* COMPARISON: Left tessie t series 02/09/2020 [employer] Other XR foot LT min 3V* FINDINGS: [employer] Other XR foot LT min 3V* Soft tissue swelling is noted. Since the prior study, as been interval partial amputation of the [employer] Other XR foot LT min 3V* first digit. 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 Questionable [employer] Other XR foot LT min 3V* subluxation/dislocat ion involving the PIP joint of the second digit. No definite plain film [employer] Other XR foot LT min 3V* evidence of osteomyelitis. [employer] Other XR foot LT min 3V* X R/XR foot LT min 3V* [employer] Other XR foot LT min 3V* IMPRESSION: [employer] Other XR foot LT min 3V* QUESTIONABLE SUBLUXATION/DISLOCATION INVOLVING THE PIP JOINT OF THE SECOND DIGIT. SOFT TISSUE [employer] Other XR foot LT min 3V* SWELLING. [employer] Other XR foot LT min 3V* Impression dictated by: Brennan Salgado Jr., DWesleyOWesley02/19/2022 11:52 AM [employer] Other XR foot LT min 3V* Dictation Location: [place] [address] [employer] Other XR foot LT min 3V* Transcribed By: PWS 02/19/22 [facility]2 [employer] Other XR foot LT min 3V* Dictated By: Brennan Salgado Jr DO 02/19/22 [facility] [employer] Other XR foot LT min 3V* Signed By: [employer] Other XR foot LT min 3V* 02/19/[address] [place] [address] [employer] Other Glucose - FINGER STICKon Glucose [Mass/Vol] 166 mg/dL [facility] [employer] Other A1C HEMOGLOBINon 11-16-2021 HbA1c (Bld) [Mass fraction] 10.7 % [employer] Other Glucose - FINGER ST[employer]on Glucose [Mass/Vol] 205 mg/dL [employer] Other HbA1c (Bld) [Mass fraction]o n 11-16-2021 A1C HEMOGLOBIN IP[facility]less [facility] [employer] Other Glucose - FINGER STICKon Glucose [Mass/Vol] 158 mg/dL [employer] Other BASIC METABOLIC PANELon 05-3 0 Calcium [Mass/Vol] 9.9 mg/dL Normal 8.6-10.3 [facility] Comment on above: Order Comment: No: D o not add to previous draw Performed By: #### 9 9909, 20135, 72941, 88358 #### [facility] [address] [place] [address], [place] Chloride [Moles/Vol] 93 mmol/L Low 98-107 [facility] Comment on above: Order Comment: No: D o not add to previous draw Performed By: #### 9 9909, 30983, 97812, 32187 #### [facility] [address] [place] [address], [place] CO2 [Moles/Vol] 32 mmol/L High 21-31 [facility] Comment on above: Order Comment: No: D o not add to previous draw Performed By: #### 9 9909, 85447, 17755, 54112 #### [facility] [address] [place] [address], [place] Creatinine [Mass/Vol] 1.89 mg/dL High 0.70-1.30 [facility] Comment on above: Order Comment: No: D o not add to previous draw Performed By: #### 9 9909, 10635, 60789, 07092 #### [facility] [address] [place] [address], [facility] eGFR- 43 ml/min/1.73sq m Abnormal >60 [facility] Comment on above: Order Comment: No: D o not add to previous draw Performed By: #### 9 9909, 22759, 33992, 09623 #### [facility] [address] [place] [address], [place] eGFR- non- 36 ml/min/1.73sq m Abnormal >60 [facility] Comment on above: Order Comment: No: D o not add to previous draw Performed By: #### 9 9909, 43421, 84102, 80756 #### [facility] [address] [place] [address], [facility] Glucose [Mass/Vol] 217 mg/dL High 70-100 [facility] Comment on above: Order Comment: No: D o not add to previous draw Performed By: #### 9 9909, 73523, 15039, 79769 #### [facility] [address] [place] [address], [facility] Potassium [Moles/Vol] 4.2 mmol/L Normal 3.5-5.1 [facility] Comment on above: Order Comment: No: D o not add to previous draw Performed By: #### 9 9909, 33066, 18244, 16982 #### [facility] [address] [place] [address], [facility] Sodium [Moles/Vol] 135 mmol/L Low 136-145 [facility] Comment on above: Order Comment: No: D o not add to previous draw Performed By: #### 9 9909, 13833, 73595, 03311 #### [facility] [address] [place] [address], [facility] Urea nitrogen [Mass/Vol] 53 mg/dL High 7-25 [facility] Comment on above: Order Comment: No: D o not add to previous draw Performed By: #### 9 9909, 14308, 85277, 94755 #### [facility] [address] [place] [address], [facility] POC GLUCOSE LABon 04-17-2021 Glucose [Mass/Vol] 274 mg/dL High 70-100 [facility] Comment on above: Performed By: #### 8 5499 #### [facility] [address] [place] [address], [facility] PROTHROMBIN TIMEon INR Coag (PPP) [Relative time] 1.76 {INR} High 0.91-1.16 [facility] Comment on above: Order Comment: No: [...] 1995;108:231S-246S. Performed By: #### 3 5200 #### [facility] [address] PT Coag (PPP) [Time] 20.6 s High 12.3-14.8 [facility] Comment on above: Order Comment: No: D o not add to previous draw Result Comment: ALL RESULTS MUST BE INTERPRETED WITH RESPECT TO BLOOD DRAWING ARTIFACT OR DILUTION ERROR OF ANTICOAGULANT AT THE TIME OF SAMPLING. Performed By: #### 3 5200 #### [facility] [address] [facility]. [address] INR Coag (PPP) [Relative time] 1.64 {INR} High 0.91-1.16 [facility] Comment on above: Order Comment: No: D o not add to previous draw Result Comment: [facility] P RECOMMENDED INR FOR WARFARIN [...] 1995;108:231S-246S. Performed By: #### 3 5200 #### [facility] [address] PT Coag (PPP) [Time] 19.5 s High 12.3-14.8 [facility] Comment on above: Order Comment: No: D o not add to previous draw Result Comment: ALL RESULTS MUST BE INTERPRETED WITH RESPECT TO BLOOD DRAWING ARTIFACT OR DILUTION ERROR OF ANTICOAGULANT AT THE TIME OF SAMPLING. Performed By: #### 3 5200 #### [facility] [address] BASIC METABOLIC PANELon 05-2 Calcium [Mass/Vol] 10.0 mg/dL Normal 8.6-10.3 [facility] Comment on above: Order Comment: No: D o not add to previous draw Performed By: #### 1 69, 04268 #### [facility] [address] [facility] [place] [address], [facility] Chloride [Moles/Vol] 92 mmol/L Low 98-107 [facility] Comment on above: Order Comment: No: D o not add to previous draw Performed By: #### 1 69, 94150 #### [facility] [address] [place] [place] [address], [facility] CO2 [Moles/Vol] 35 mmol/L High 21-31 [facility] Comment on above: Order Comment: No: D o not add to previous draw Performed By: #### 1 69, 51460 #### [facility] [address] [place] [id number], [facility] Creatinine [Mass/Vol] 1.89 mg/dL High 0.70-1.30 [facility] Comment on above: Order Comment: No: D o not add to previous draw Performed By: #### 1 69, 89210 #### [facility] [address] [place] [address], [facility] eGFR- 43 ml/min/1.73sq m Abnormal >60 [facility] Comment on above: Order Comment: No: D o not add to previous draw Performed By: #### 1 69, 37598 #### [facility] [address] [place] [address], [facility] eGFR- non- 36 ml/min/1.73sq m Abnormal >60 [facility] Comment on above: Order Comment: No: D o not add to previous draw Performed By: #### 1 69, 59068 #### [facility] [address] [place] [address], [facility] Glucose [Mass/Vol] 187 mg/dL High 70-100 [facility] Comment on above: Order Comment: No: D o not add to previous draw Performed By: #### 1 69, 36322 #### [facility] [address] [place] [id number], [place] Potassium [Moles/Vol] 4.1 mmol/L Normal 3.5-5.1 [facility] Comment on above: Order Comment: No: D o not add to previous draw Performed By: #### 1 69, 82771 #### [facility] [address] [place] [address], [place] Sodium [Moles/Vol] 137 mmol/L Normal 136-145 [facility] Comment on above: Order Comment: No: D o not add to previous draw Performed By: #### 1 0070, 25265 #### [facility] [address] [facility]. [address] Urea nitrogen [Mass/Vol] 52 mg/dL High 7-25 [facility] Comment on above: Order Comment: No: D o not add to previous draw Performed By: #### 1 0070, 21109 #### [facility] [address] [facility] [place] [place] [address], [facility] CBC W/DIFFon 04-16-2021 ABS IMM GRANS 0.0 10*3/uL Normal 0.0-0.2 [facility] Comment on above: Order Comment: No: D o not add to previous draw Performed By: #### 3 5200 #### [facility] [address] ABS NEUTROPHILS 5.9 10*3/uL Normal 1.6-7.6 [facility] Comment on above: Order Comment: No: D o not add to previous draw Performed By: #### 3 5200 #### [facility] [address] [place] [address], [facility] Basophils (Bld) [#/Vol] 0.0 10*3/uL Normal 0.0-0.2 [facility] Comment on above: Order Comment: No: D o not add to previous draw Performed By: #### 3 5200 #### [facility] [address] [facility] [place] [place] [address], [facility] Basophils/100 WBC (Bld) 0.3 % Normal 0.0-1.0 [facility] Comment on above: Order Comment: No: D o not add to previous draw Performed By: #### 3 5200 #### [facility] [address] [place] [address], [facility] Eosinophils (Bld) [#/Vol] 0.4 10*3/uL Normal 0.0-0.5 [facility] Comment on above: Order Comment: No: D o not add to previous draw Performed By: #### 3 5200 #### [facility] [address] [place] [address], [facility] Eosinophils/100 WBC (Bld) 4.3 % Normal 0.0-6.0 [facility] Comment on above: Order Comment: No: D o not add to previous draw Performed By: #### 3 5200 #### [facility] [address] [facility] [address] Erythrocyte distribution width (RBC) [Ratio] 16.1 % High 11.5-15.0 [facility] Comment on above: Order Comment: No: D o not add to previous draw Performed By: #### 3 5200 #### [facility] [address] Hematocrit (Bld) [Volume fraction] 37.0 % Low 39.0-50.0 [facility] Comment on above: Order Comment: No: D o not add to previous draw Performed By: #### 3 5200 #### [facility] [address] [facility]. [address] Hemoglobin (Bld) [Mass/Vol] 11.4 g/dL Low 13.0-17.0 [facility] Comment on above: Order Comment: No: D o not add to previous draw Performed By: #### 3 5200 #### [facility] [address] [facility]. [address] IMMATURE GRANS 0.3 % Normal 0.0-1.0 [facility] Comment on above: Order Comment: No: D o not add to previous draw Performed By: #### 3 5200 #### [facility] [address] [facility] [place] [place] [address], [facility] Lymphocytes (Bld) [#/Vol] 1.8 10*3/uL Normal 1.2-4.0 [facility] Comment on above: Order Comment: No: D o not add to previous draw Performed By: #### 3 5200 #### [facility] [address] [place] [address], [facility] Lymphocytes/100 WBC (Bld) 20.7 % Normal 20.0-45.0 [facility] Comment on above: Order Comment: No: D o not add to previous draw Performed By: #### 3 5200 #### [facility] [address] [place] [address], [facility] MCH (RBC) [Entitic mass] 27.1 pg Normal 27.0-33.0 [facility] Comment on above: Order Comment: No: D o not add to previous draw Performed By: #### 3 5200 #### [facility] [address] [place] [id number], [facility] MCHC (RBC) [Mass/Vol] 30.8 g/dL Low 32.0-35.0 [facility] Comment on above: Order Comment: No: D o not add to previous draw Performed By: #### 3 5200 #### [facility] [address] [place] [id number], [facility] MCV (RBC) [Entitic vol] 88.1 fL Normal 82.0-98.0 [facility] Comment on above: Order Comment: No: D o not add to previous draw Performed By: #### 3 5200 #### [facility] [address] [facility] [place] [id number], [facility] Monocytes (Bld) [#/Vol] 0.7 10*3/uL Normal 0.1-1.0 [facility] Comment on above: Order Comment: No: D o not add to previous draw Performed By: #### 3 5200 #### [facility] [address] [place] [id number], [facility] MONOS 7.9 % Normal 5.0-12.0 [facility] Comment on above: Order Comment: No: D o not add to previous draw Performed By: #### 3 5200 #### [facility] [address] [place] [address], [facility] Neutrophils/100 WBC (Bld) 66.5 % Normal 40.0-72.0 [facility] Comment on above: Order Comment: No: D o not add to previous draw Performed By: #### 3 5200 #### [facility] [address] [place] [address], [facility] Nucleated RBC/100 WBC (Bld) [Ratio] 0 % Normal 0-0 [facility] Comment on above: Order Comment: No: D o not add to previous draw Performed By: #### 3 5200 #### [facility] [address] [place] [address], [place] PLAT CNT 189 10*3/uL Normal 150-400 [facility] Comment on above: Order Comment: No: D o not add to previous draw Performed By: #### 3 5200 #### [facility] [address] [place] [address], [facility] RBC (Bld) [#/Vol] 4.20 10*6/uL Normal 4.20-5.70 [facility] Comment on above: Order Comment: No: D o not add to previous draw Performed By: #### 3 5200 #### [facility] [address] [place] [address], [facility] WBC (Bld) [#/Vol] 8.82 10*3/uL Normal 4.00-10.60 [facility] Comment on above: Order Comment: No: D o not add to previous draw Performed By: #### 3 5200 #### [facility] [address] [place] [address], [facility] HEMOGLOBIN A1Con 04-16-2021 Glucose [Moles/Vol] 180 mmol/L Normal [facility] Comment on above: Order Comment: Yes: Add to Previous draw if able Performed By: #### 8 5499 #### [facility] [address] [place] [address], [place] HbA1c (Bld) [Mass fraction] 7.9 % High 4.0-6.0 [facility] Comment on above: Order Comment: Yes: Add to Previous draw if able Performed By: #### 8 5499 #### [facility] [address] [place] [address], [place] MAGNESIUM BLOODon 04-16-2021 Magnesium [Mass/Vol] 2.3 mg/dL Normal 1.9-2.7 [facility] Comment on above: Order Comment: No: D o not add to previous draw Performed By: #### 1 0070, 62423 #### [facility] [address] [place] [address], [place] POC GLUCOSE LABon 04-16-2021 Glucose [Mass/Vol] 357 mg/dL High 70-100 [facility] Comment on above: Performed By: #### 8 5499 #### [facility] [address] [place] [address], [place] Glucose [Mass/Vol] 149 mg/dL High 70-100 [facility] Comment on above: Performed By: #### 9 9909, 76695, 25740, 88935 #### [facility] [address] [place] [address], [place] Glucose [Mass/Vol] 243 mg/dL High 70-100 [facility] Comment on above: Performed By: #### 8 5499 #### [facility] [address] [place] [address], [place] Glucose [Mass/Vol] 181 mg/dL High 70-100 [facility] Comment on above: Performed By: #### 9 9909, 68855, 46062, 61769 #### [facility] [address] [place] [address], [place] PROTHROMBIN TIMEon INR Coag (PPP) [Relative time] 1.63 {INR} High 0.91-1.16 [facility] Comment on above: Order Comment: No: D o not add to previous draw Result Comment: [facility] P RECOMMENDED INR FOR WARFARIN [...] 1995;108:231S-246S. Performed By: #### 3 5200 #### [facility] [address] [place] [address], [facility] PT Coag (PPP) [Time] 19.4 s High 12.3-14.8 [facility] Comment on above: Order Comment: No: D o not add to previous draw Result Comment: ALL RESULTS MUST BE INTERPRETED WITH RESPECT TO BLOOD DRAWING ARTIFACT OR DILUTION ERROR OF ANTICOAGULANT AT THE TIME OF SAMPLING. Performed By: #### 3 5200 #### [facility] [address] [place] [address], [facility] INR Coag (PPP) [Relative time] 1.66 {INR} High 0.91-1.16 [facility] Comment on above: Order Comment: No: D o not add to previous draw Result Comment: [facility] P RECOMMENDED INR FOR WARFARIN [...] 1995;108:231S-246S. Performed By: #### 3 5200 #### [facility] [address] PT Coag (PPP) [Time] 19.7 s High 12.3-14.8 [facility] Comment on above: Order Comment: No: D o not add to previous draw Result Comment: ALL RESULTS MUST BE INTERPRETED WITH RESPECT TO BLOOD DRAWING ARTIFACT OR DILUTION ERROR OF ANTICOAGULANT AT THE TIME OF SAMPLING. Performed By: #### 3 5200 #### [facility] [address] BASIC METABOLIC PANELon 05-2 Calcium [Mass/Vol] 9.7 mg/dL Normal 8.6-10.3 [facility] Comment on above: Order Comment: No: D o not add to previous draw Performed By: #### 9 9909, 16490, 41513, 45806 #### [facility] [address] [facility] [place] [address], [facility] Chloride [Moles/Vol] 92 mmol/L Low 98-107 [facility] Comment on above: Order Comment: No: D o not add to previous draw Performed By: #### 9 9909, 64084, 89118, 30883 #### [facility] [address] [place] [address], [facility] CO2 [Moles/Vol] 36 mmol/L High 21-31 [facility] Comment on above: Order Comment: No: D o not add to previous draw Performed By: #### 9 9909, 54424, 12919, 68302 #### [facility] [address] [place] [address], [facility] Creatinine [Mass/Vol] 1.86 mg/dL High 0.70-1.30 [facility] Comment on above: Order Comment: No: D o not add to previous draw Performed By: #### 9 9909, 53745, 22097, 05763 #### [facility] [address] [place] [address], [facility] eGFR- 44 ml/min/1.73sq m Abnormal >60 [facility] Comment on above: Order Comment: No: D o not add to previous draw Performed By: #### 9 9909, 79148, 45208, 46659 #### [facility] [address] [place] [address], [facility] eGFR- non- 37 ml/min/1.73sq m Abnormal >60 [facility] Comment on above: Order Comment: No: D o not add to previous draw Performed By: #### 9 9909, 59300, 24037, 26442 #### [facility] [address] [place] [address], [place] Glucose [Mass/Vol] 167 mg/dL High 70-100 [facility] Comment on above: Order Comment: No: D o not add to previous draw Performed By: #### 9 9909, 94718, 83567, 24134 #### [facility] [address] [place] [address], [place] Potassium [Moles/Vol] 4.0 mmol/L Normal 3.5-5.1 [facility] Comment on above: Order Comment: No: D o not add to previous draw Performed By: #### 9 9909, 41316, 80236, 74328 #### [facility] [address] [facility] [address] Sodium [Moles/Vol] 138 mmol/L Normal 136-145 [facility] Comment on above: Order Comment: No: D o not add to previous draw Performed By: #### 9 9909, 71741, 77900, 78062 #### [facility] [address] [facility] Urea nitrogen [Mass/Vol] 44 mg/dL High 7-25 [facility] Comment on above: Order Comment: No: D o not add to previous draw Performed By: #### 9 9909, 90567, 29347, 47981 #### [facility] [address] CBC W/DIFFon 04-15-2021 ABS IMM GRANS 0.0 10*3/uL Normal 0.0-0.2 [facility] Comment on above: Order Comment: No: D o not add to previous draw Performed By: #### [id number] #### [facility] [address] ABS NEUTROPHILS 6.3 10*3/uL Normal 1.6-7.6 [facility] Comment on above: Order Comment: No: D o not add to previous draw Performed By: #### [id number] #### [facility] [address] [facility]. [address] Basophils (Bld) [#/Vol] 0.0 10*3/uL Normal 0.0-0.2 The [facility] Comment on above: Order Comment: No: D o not add to previous draw Performed By: #### 3 5200 #### [facility] [address] [place] [address], [facility] Basophils/100 WBC (Bld) 0.3 % Normal 0.0-1.0 [facility] Comment on above: Order Comment: No: D o not add to previous draw Performed By: #### 3 5200 #### [facility] [address] [place] [address], [facility] Eosinophils (Bld) [#/Vol] 0.4 10*3/uL Normal 0.0-0.5 [facility] Comment on above: Order Comment: No: D o not add to previous draw Performed By: #### 3 5200 #### [facility] [address] [place] [address], [facility] Eosinophils/100 WBC (Bld) 4.5 % Normal 0.0-6.0 [facility] Comment on above: Order Comment: No: D o not add to previous draw Performed By: #### 3 5200 #### [facility] [address] [place] [address], [facility] Erythrocyte distribution width (RBC) [Ratio] 16.3 % High 11.5-15.0 [facility] Comment on above: Order Comment: No: D o not add to previous draw Performed By: #### 3 5200 #### [facility] [address] [facility] [place] [address], [facility] Hematocrit (Bld) [Volume fraction] 37.4 % Low 39.0-50.0 [facility] Comment on above: Order Comment: No: D o not add to previous draw Performed By: #### 3 5200 #### [facility] [address] [facility] [place] [address], [facility] Hemoglobin (Bld) [Mass/Vol] 11.4 g/dL Low 13.0-17.0 [facility] Comment on above: Order Comment: No: D o not add to previous draw Performed By: #### 3 5200 #### [facility] [address] [place] [address], [facility] IMMATURE GRANS 0.3 % Normal 0.0-1.0 [facility] Comment on above: Order Comment: No: D o not add to previous draw Performed By: #### 3 5200 #### [facility] [address] [place] [address], [facility] Lymphocytes (Bld) [#/Vol] 1.8 10*3/uL Normal 1.2-4.0 [facility] Comment on above: Order Comment: No: D o not add to previous draw Performed By: #### 3 5200 #### [facility] [address] [place] [id number], [facility] Lymphocytes/100 WBC (Bld) 19.1 % Low 20.0-45.0 [facility] Comment on above: Order Comment: No: D o not add to previous draw Performed By: #### 3 5200 #### [facility] [address] [place] [id number], [facility] MCH (RBC) [Entitic mass] 27.2 pg Normal 27.0-33.0 [facility] Comment on above: Order Comment: No: D o not add to previous draw Performed By: #### 3 5200 #### [facility] [address] [facility] [place] [id number], [facility] MCHC (RBC) [Mass/Vol] 30.5 g/dL Low 32.0-35.0 [facility] Comment on above: Order Comment: No: D o not add to previous draw Performed By: #### 3 5200 #### [facility] [address] [facility] [place] [id number], [facility] MCV (RBC) [Entitic vol] 89.3 fL Normal 82.0-98.0 [facility] Comment on above: Order Comment: No: D o not add to previous draw Performed By: #### 3 5200 #### [facility] [address] [place] [address], [facility] Monocytes (Bld) [#/Vol] 0.7 10*3/uL Normal 0.1-1.0 [facility] Comment on above: Order Comment: No: D o not add to previous draw Performed By: #### 3 5200 #### [facility] [address] [place] [address], [place] MONOS 7.4 % Normal 5.0-12.0 [facility] Comment on above: Order Comment: No: D o not add to previous draw Performed By: #### 3 5200 #### [facility] [address] [place] [address], [place] Neutrophils/100 WBC (Bld) 68.4 % Normal 40.0-72.0 [facility] Comment on above: Order Comment: No: D o not add to previous draw Performed By: #### 3 5200 #### [facility] [address] [place] [address], [place] Nucleated RBC/100 WBC (Bld) [Ratio] 0 % Normal 0-0 [facility] Comment on above: Order Comment: No: D o not add to previous draw Performed By: #### 3 5200 #### [facility] [address] [place] [address], [place] PLAT CNT 177 10*3/uL Normal 150-400 [facility] Comment on above: Order Comment: No: D o not add to previous draw Performed By: #### 3 5200 #### [facility] [address] [place] [address], [place] RBC (Bld) [#/Vol] 4.19 10*6/uL Low 4.20-5.70 [facility] Comment on above: Order Comment: No: D o not add to previous draw Performed By: #### 3 5200 #### [facility] [address] [place] [address], [place] WBC (Bld) [#/Vol] 9.21 10*3/uL Normal 4.00-10.60 [facility] Comment on above: Order Comment: No: D o not add to previous draw Performed By: #### 3 5200 #### [facility] [address] [place] [address], [place] MAGNESIUM BLOODon 04-15-2021 Magnesium [Mass/Vol] 2.3 mg/dL Normal 1.9-2.7 [facility] Comment on above: Order Comment: No: D o not add to previous draw Performed By: #### 9 9909, 70919, 46059, 74933 #### [facility] [address] [place] [address], [place] POC GLUCOSE LABon 04-15-2021 Glucose [Mass/Vol] 230 mg/dL High 70-100 [facility] Comment on above: Performed By: #### 8 [id number] #### [facility] [address] [place] [address], [place] Glucose [Mass/Vol] 260 mg/dL High 70-100 [facility] Comment on above: Performed By: #### 8 [id number] #### [facility] [address] [place] [address], [place] Glucose [Mass/Vol] 273 mg/dL High 70-100 [facility] Comment on above: Performed By: #### 9 9909, 79779, 00159, 74249 #### [facility] [address] [place] [address], [place] Glucose [Mass/Vol] 168 mg/dL High 70-100 [facility] Comment on above: Performed By: #### 8 [id number] #### [facility] [address] [place] [address], [place] PROTHROMBIN TIMEon INR Coag (PPP) [Relative time] 1.77 {INR} High 0.91-1.16 [facility] Comment on above: Order Comment: No: [...] 1995;108:231S-246S. Performed By: #### 3 5200 #### [facility] [address] [facility] [place] [place] [address], [facility] PT Coag (PPP) [Time] 20.7 s High 12.3-14.8 [facility] Comment on above: Order Comment: No: D o not add to previous draw Result Comment: ALL RESULTS MUST BE INTERPRETED WITH RESPECT TO BLOOD DRAWING ARTIFACT OR DILUTION ERROR OF ANTICOAGULANT AT THE TIME OF SAMPLING. Performed By: #### 3 [id number] #### [facility] [address] [facility] [place] [address], [facility] INR Coag (PPP) [Relative time] 1.80 {INR} High 0.91-1.16 [facility] Comment on above: Order Comment: Unkno [...] 1995;108:231S-246S. Performed By: #### 8 [id number] #### [facility] [address] [place] [address], [facility] PT Coag (PPP) [Time] 21.0 s High 12.3-14.8 [facility] Comment on above: Order Comment: Unkno wn Result Comment: ALL RESULTS MUST BE INTERPRETED WITH RESPECT TO BLOOD DRAWING ARTIFACT OR DILUTION ERROR OF ANTICOAGULANT AT THE TIME OF SAMPLING. Performed By: #### 8 [id number] #### [facility] [address] BASIC METABOLIC PANELon 05-2 Calcium [Mass/Vol] 9.4 mg/dL Normal 8.6-10.3 [facility] Comment on above: Order Comment: No: D o not add to previous draw Performed By: #### 8 [id number] #### [facility] [address] [facility] [place] [address], [facility] Chloride [Moles/Vol] 95 mmol/L Low 98-107 [facility] Comment on above: Order Comment: No: D o not add to previous draw Performed By: #### 8 [id number] #### [facility] [address] [place] [address], [facility] CO2 [Moles/Vol] 35 mmol/L High 21-31 [facility] Comment on above: Order Comment: No: D o not add to previous draw Performed By: #### 8 [id number] #### [facility] [address] [place] [address], [facility] Creatinine [Mass/Vol] 1.77 mg/dL High 0.70-1.30 [facility] Comment on above: Order Comment: No: D o not add to previous draw Performed By: #### 8 [id number] #### [facility] [address] [place] [address], [place] eGFR- 47 ml/min/1.73sq m Abnormal >60 [facility] Comment on above: Order Comment: No: D o not add to previous draw Performed By: #### 8 [id number] #### [facility] [address] [place] [address], [place] eGFR- non- 39 ml/min/1.73sq m Abnormal >60 [facility] Comment on above: Order Comment: No: D o not add to previous draw Performed By: #### 8 [id number] #### [facility] [address] [place] [address], [place] Glucose [Mass/Vol] 135 mg/dL High 70-100 [facility] Comment on above: Order Comment: No: D o not add to previous draw Performed By: #### 8 [id number] #### [facility] [address] [place] [address], [place] Potassium [Moles/Vol] 3.7 mmol/L Normal 3.5-5.1 [facility] Comment on above: Order Comment: No: D o not add to previous draw Performed By: #### 8 [id number] #### [facility] [address] [place] [address], [place] Sodium [Moles/Vol] 140 mmol/L Normal 136-145 [facility] Comment on above: Order Comment: No: D o not add to previous draw Performed By: #### 8 [id number] #### [facility] [address] [place] [address], [place] Urea nitrogen [Mass/Vol] 43 mg/dL High 7-25 [facility] Comment on above: Order Comment: No: D o not add to previous draw Performed By: #### 8 [id number] #### [facility] [address] CBC W/DIFFon 04-14-2021 ABS IMM GRANS 0.0 10*3/uL Normal 0.0-0.2 [facility] Comment on above: Order Comment: No: D o not add to previous draw Performed By: #### 8 [id number] #### [facility] [address] [place] [address], [facility] ABS NEUTROPHILS 6.4 10*3/uL Normal 1.6-7.6 [facility] Comment on above: Order Comment: No: D o not add to previous draw Performed By: #### 8 [id number] #### [facility] [address] [place] [address], [facility] Basophils (Bld) [#/Vol] 0.0 10*3/uL Normal 0.0-0.2 [facility] Comment on above: Order Comment: No: D o not add to previous draw Performed By: #### 8 [id number] #### [facility] [address] [place] [address], [facility] Basophils/100 WBC (Bld) 0.3 % Normal 0.0-1.0 [facility] Comment on above: Order Comment: No: D o not add to previous draw Performed By: #### 8 [id number] #### [facility] [address] [place] [address], [facility] Eosinophils (Bld) [#/Vol] 0.4 10*3/uL Normal 0.0-0.5 [facility] Comment on above: Order Comment: No: D o not add to previous draw Performed By: #### 8 [id number] #### [facility] [address] [place] [address], [facility] Eosinophils/100 WBC (Bld) 4.0 % Normal 0.0-6.0 [facility] Comment on above: Order Comment: No: D o not add to previous draw Performed By: #### 8 [id number] #### [facility] [address] [place] [address], [facility] Erythrocyte distribution width (RBC) [Ratio] 16.6 % High 11.5-15.0 [facility] Comment on above: Order Comment: No: D o not add to previous draw Performed By: #### 8 [id number] #### [facility] [address] [facility] [place] [id number], [facility] Hematocrit (Bld) [Volume fraction] 35.5 % Low 39.0-50.0 [facility] Comment on above: Order Comment: No: D o not add to previous draw Performed By: #### 8 [id number] #### [facility] [address] [facility] [place] [address], [facility] Hemoglobin (Bld) [Mass/Vol] 10.9 g/dL Low 13.0-17.0 [facility] Comment on above: Order Comment: No: D o not add to previous draw Performed By: #### 8 [id number] #### [facility] [address] [facility] [place] [address], [facility] IMMATURE GRANS 0.3 % Normal 0.0-1.0 [facility] Comment on above: Order Comment: No: D o not add to previous draw Performed By: #### 8 [id number] #### [facility] [address] [facility] [place] [place] [address], [facility] Lymphocytes (Bld) [#/Vol] 1.6 10*3/uL Normal 1.2-4.0 [facility] Comment on above: Order Comment: No: D o not add to previous draw Performed By: #### 8 [id number] #### [facility] [address] [facility] [place] [address], [facility] Lymphocytes/100 WBC (Bld) 17.3 % Low 20.0-45.0 [facility] Comment on above: Order Comment: No: D o not add to previous draw Performed By: #### 8 [id number] #### [facility] [address] [place] [address], [facility] MCH (RBC) [Entitic mass] 27.0 pg Normal 27.0-33.0 [facility] Comment on above: Order Comment: No: D o not add to previous draw Performed By: #### 8 [id number] #### [facility] [address] [place] [id number], [facility] MCHC (RBC) [Mass/Vol] 30.7 g/dL Low 32.0-35.0 [facility] Comment on above: Order Comment: No: D o not add to previous draw Performed By: #### 8 [id number] #### [facility] [address] [place] [address], [facility] MCV (RBC) [Entitic vol] 88.1 fL Normal 82.0-98.0 [facility] Comment on above: Order Comment: No: D o not add to previous draw Performed By: #### 8 [id number] #### [facility] [address] [place] [address], [facility] Monocytes (Bld) [#/Vol] 0.7 10*3/uL Normal 0.1-1.0 [facility] Comment on above: Order Comment: No: D o not add to previous draw Performed By: #### 8 [id number] #### [facility] [address] [place] [address], [facility] MONOS 7.6 % Normal 5.0-12.0 [facility] Comment on above: Order Comment: No: D o not add to previous draw Performed By: #### 8 [id number] #### [facility] [address] [place] [address], [facility] Neutrophils/100 WBC (Bld) 70.5 % Normal 40.0-72.0 [facility] Comment on above: Order Comment: No: D o not add to previous draw Performed By: #### 8 [id number] #### [facility] [address] [facility] Nucleated RBC/100 WBC (Bld) [Ratio] 0 % Normal 0-0 [facility] Comment on above: Order Comment: No: D o not add to previous draw Performed By: #### 8 [id number] #### [facility] [address] [facility] [place] [address], [facility] PLAT CNT 157 10*3/uL Normal 150-400 [facility] Comment on above: Order Comment: No: D o not add to previous draw Performed By: #### 8 [id number] #### [facility] [address] [facility] [place] [address], [facility] RBC (Bld) [#/Vol] 4.03 10*6/uL Low 4.20-5.70 [facility] Comment on above: Order Comment: No: D o not add to previous draw Performed By: #### 8 [id number] #### [facility] [address] [facility] [place] [address], [facility] WBC (Bld) [#/Vol] 9.10 10*3/uL Normal 4.00-10.60 [facility] Comment on above: Order Comment: No: D o not add to previous draw Performed By: #### 8 [id number] #### [facility] [address] [facility] [place] [place] [address], [facility] DIGOXINon 04-14-2021 Digoxin [Mass/Vol] 1.0 ng/mL Normal 0.7-2.0 [facility] Comment on above: Order Comment: Yes: Add to Previous draw if able Performed By: #### 8 [id number] #### [facility] [address] [facility] [place] [address], [facility] MAGNESIUM BLOODon 04-14-2021 Magnesium [Mass/Vol] 2.2 mg/dL Normal 1.9-2.7 [facility] Comment on above: Order Comment: No: D o not add to previous draw Performed By: #### 8 [id number] #### [facility] [address] [place] [address], [facility] POC GLUCOSE LABon 04-14-2021 Glucose [Mass/Vol] 194 mg/dL High 70-100 [facility] Comment on above: Performed By: #### 8 [id number] #### [facility] [address] [place] [address], [facility] Glucose [Mass/Vol] 188 mg/dL High 70-100 [facility] Comment on above: Performed By: #### 9 9909, 43324, 07012, 58128 #### [facility] [address] [place] [address], [facility] Glucose [Mass/Vol] 130 mg/dL High 70-100 [facility] Comment on above: Performed By: #### 9 9909, 08606, 84566, 91372 #### [facility] [address] [facility] [place] [address], [facility] PROTHROMBIN TIMEon INR Coag (PPP) [Relative time] 1.92 {INR} High 0.91-1.16 [facility] Comment on above: Order Comment: [...] CHEST 1995;108:231S-246S. Performed By: #### 9 9909, 33408, 00671, 43023 #### [facility] [address] [place] [address], [facility] PT Coag (PPP) [Time] 22.1 s High 12.3-14.8 [facility] Comment on above: Order Comment: No: D o not add to previous draw Result Comment: ALL RESULTS MUST BE INTERPRETED WITH RESPECT TO BLOOD DRAWING ARTIFACT OR DILUTION ERROR OF ANTICOAGULANT AT THE TIME OF SAMPLING. Performed By: #### 9 9909, 19640, 63862, 25600 #### [facility] [address] [facility] [place] [address], [facility] INR Coag (PPP) [Relative time] 1.83 {INR} High 0.91-1.16 [facility] Comment on above: Order Comment: [...] 1995;108:231S-246S. Performed By: #### 3 [id number] #### [facility] [address] [place] [address], [facility] PT Coag (PPP) [Time] 21.2 s High 12.3-14.8 [facility] Comment on above: Order Comment: No: D o not add to previous draw Result Comment: ALL RESULTS MUST BE INTERPRETED WITH RESPECT TO BLOOD DRAWING ARTIFACT OR DILUTION ERROR OF ANTICOAGULANT AT THE TIME OF SAMPLING. Performed By: #### 3 [id number] #### [facility] [address] [place] [address], [facility] BASIC METABOLIC PANELon 05 Calcium [Mass/Vol] 8.5 mg/dL Low 8.6-10.3 [facility] Comment on above: Order Comment: No: D o not add to previous draw Performed By: #### 9 9909, 47369, 00779, 86766 #### [facility] [address] [place] [address], [facility] Chloride [Moles/Vol] 98 mmol/L Normal 98-107 [facility] Comment on above: Order Comment: No: D o not add to previous draw Performed By: #### 9 9909, 75327, 04593, 86194 #### [facility] [address] [place] [address], [facility] CO2 [Moles/Vol] 32 mmol/L High 21-31 [facility] Comment on above: Order Comment: No: D o not add to previous draw Performed By: #### 9 9909, 75333, 69822, 03662 #### [facility] [address] [place] [address], [facility] Creatinine [Mass/Vol] 1.77 mg/dL High 0.70-1.30 [facility] Comment on above: Order Comment: No: D o not add to previous draw Performed By: #### 9 9909, 90242, 64678, 48346 #### [facility] [address] [place] [address], [facility] eGFR- 47 ml/min/1.73sq m Abnormal >60 [facility] Comment on above: Order Comment: No: D o not add to previous draw Performed By: #### 9 9909, 71220, 94513, 38195 #### [facility] [address] [place] [address], [facility] eGFR- non- 39 ml/min/1.73sq m Abnormal >60 [facility] Comment on above: Order Comment: No: D o not add to previous draw Performed By: #### 9 9909, 54938, 57328, 73853 #### [facility] [address] [place] [address], [place] Glucose [Mass/Vol] 129 mg/dL High 70-100 [facility] Comment on above: Order Comment: No: D o not add to previous draw Performed By: #### 9 9909, 53479, 95672, 88674 #### [facility] [address] [place] [address], [place] Potassium [Moles/Vol] 3.8 mmol/L Normal 3.5-5.1 [facility] Comment on above: Order Comment: No: D o not add to previous draw Performed By: #### 9 9909, 91426, 66682, 21009 #### [facility] [address] [place] [address], [place] Sodium [Moles/Vol] 138 mmol/L Normal 136-145 [facility] Comment on above: Order Comment: No: D o not add to previous draw Performed By: #### 9 [id number], [id number], [id number] #### [facility] [address] [place] [address], [place] Urea nitrogen [Mass/Vol] 39 mg/dL High 7-25 [facility] Comment on above: Order Comment: No: D o not add to previous draw Performed By: #### 9 [id number], [id number], [id number], [id number] #### [facility] [address] [place] [address], [place] CBC COMPLETE BLOOD COUNTon 0 04-13-2021 Erythrocyte distribution width (RBC) [Ratio] 16.8 % High 11.5-15.0 [facility] Comment on above: Order Comment: No: D o not add to previous draw Performed By: #### 8 [id number] #### [facility] [address] [place] [id number], [facility] Hematocrit (Bld) [Volume fraction] 33.7 % Low 39.0-50.0 [facility] Comment on above: Order Comment: No: D o not add to previous draw Performed By: #### 8 [id number] #### [facility] [address] [place] [id number], [facility] Hemoglobin (Bld) [Mass/Vol] 10.2 g/dL Low 13.0-17.0 [facility] Comment on above: Order Comment: No: D o not add to previous draw Performed By: #### 8 [id number] #### [facility] [address] [place] [id number], [facility] MCH (RBC) [Entitic mass] 27.1 pg Normal 27.0-33.0 [facility] Comment on above: Order Comment: No: D o not add to previous draw Performed By: #### 8 [id number] #### [facility] [address] [place] [id number], [facility] MCHC (RBC) [Mass/Vol] 30.3 g/dL Low 32.0-35.0 [facility] Comment on above: Order Comment: No: D o not add to previous draw Performed By: #### 8 [id number] #### [facility] [address] [place] [address], [place] MCV (RBC) [Entitic vol] 89.6 fL Normal 82.0-98.0 [facility] Comment on above: Order Comment: No: D o not add to previous draw Performed By: #### 8 [id number] #### [facility] [address] [place] [id number], [place] Nucleated RBC/100 WBC (Bld) [Ratio] 0 % Normal 0-0 [facility] Comment on above: Order Comment: No: D o not add to previous draw Performed By: #### 8 [id number] #### [facility] [address] [place] [address], [place] PLAT CNT 131 10*3/uL Low 150-400 [facility] Comment on above: Order Comment: No: D o not add to previous draw Performed By: #### 8 [id number] #### [facility] [address] [place] [address], [place] RBC (Bld) [#/Vol] 3.76 10*6/uL Low 4.20-5.70 [facility] Comment on above: Order Comment: No: D o not add to previous draw Performed By: #### 8 [id number] #### [facility] [address] [place] [address], [place] WBC (Bld) [#/Vol] 11.41 10*3/uL High 4.00-10.60 [facility] Comment on above: Order Comment: No: D o not add to previous draw Performed By: #### 8 [id number] #### [facility] [address] [place] [address], [place] MAGNESIUM BLOODon 04-13-2021 Magnesium [Mass/Vol] 2.3 mg/dL Normal 1.9-2.7 [facility] Comment on above: Order Comment: No: D o not add to previous draw Performed By: #### 9 9909, 62385, 89729, 77962 #### [facility] [address] [place] [address], [place] POC GLUCOSE LABon 04-13-2021 Glucose [Mass/Vol] 210 mg/dL High 70-100 [facility] Comment on above: Performed By: #### 8 [id number] #### [facility] [address] [place] [address], [place] Glucose [Mass/Vol] 90 mg/dL Normal 70-100 [facility] Comment on above: Performed By: #### 9 9909, 57860, 59610, 90273 #### [facility] [address] [place] [address], [facility] Glucose [Mass/Vol] 104 mg/dL High 70-100 [facility] Comment on above: Performed By: #### 8 [id number] #### [facility] [address] [place] [address], [facility] Glucose [Mass/Vol] 77 mg/dL Normal 70-100 [facility] Comment on above: Performed By: #### 9 9909, 11602, 95827, 99745 #### [facility] [address] [place] [address], [facility] Glucose [Mass/Vol] 113 mg/dL High 70-100 [facility] Comment on above: Performed By: #### 9 9909, 89315, 19189, 98555 #### [facility] [address] [place] [address], [facility] PROTHROMBIN TIMEon 1 INR Coag (PPP) [Relative time] 2.19 {INR} High 0.91-1.16 [facility] Comment on above: Order Comment: [...] 1995;108:231S-246S. Performed By: #### 3 5200 #### [address] PT Coag (PPP) [Time] 24.5 s High 12.3-14.8 [facility] Comment on above: Order Comment: No: D o not add to previous draw Result Comment: ALL RESULTS MUST BE INTERPRETED WITH RESPECT TO BLOOD DRAWING ARTIFACT OR DILUTION ERROR OF ANTICOAGULANT AT THE TIME OF SAMPLING. Performed By: #### 3 5200 #### [address] TROPONIN-Ion 04-13-2021 Troponin I.cardiac [Mass/Vol] 0.05 ng/mL High 0.00-0.04 [facility] Comment on above: Order Comment: No: D o not add to previous draw Result Comment: REFE RENCE RANGES: 0.00 - 0.04 ng/ml NORMAL 0.05 - 0.50 ng/ml INDETERMINATE > 0.50 ng/ml CONSISTENT WITH AN M.I. Performed By: #### 3 5200 #### [address] US ABDOMEN LIMITED FOR ASCIT ESon 04-13-2021 US ABDOMEN LIMITED FOR ASCITES [facility] Department of Radiology [address] [place] [id number] Patient Name: ADWOA PORTER : 1955 Sex: M Age: Race: White Pt. Location: [id number] Patient Status: I Ordered Date: 04/13/2021 3:45:00 [...] reports Electronically signed: Shannon Weathers. Transcribed by: [email or web address], User Resident: BIANCA NICOLE Electronically Signed by: SHANNON WEATHERS @ 04/13/2021 04:07 PM I personally read this/these film(s) with this resident Normal [facility] Comment on above: Order Comment: No: D o not add to previous draw *BLOOD CULTUREon 04-12-2021 *BLOOD CULTURE Clinical Report: (D) Specimen: BLOOD CULTURE Collected: 04/12/2021 20:24 Status: Final Last Updated: 04/18/2021 07:10 (1) Right AC 2018 CULT RES (Final) No Growth Day 5 Normal [facility] Comment on above: Order Comment: Right AC 2018 Performed By: #### 8 [id number] #### [place] [address] [address] *BLOOD CULTURE Clinical Report: (D) Specimen: BLOOD CULTURE Collected: 04/12/2021 20:24 Status: Final Last Updated: 04/18/2021 07:10 (1) Left AC 2021 CULT RES (Final) No Growth Day 5 Normal [facility] Comment on above: Order Comment: Left AC 2021 Performed By: #### 8 [id number] #### [facility] [address] BNP (B-TYPE NATRIURETIC PEPT JJ)on 04-12-2021 Natriuretic peptide B (Bld) [Mass/Vol] 502 pg/mL High 0-100 [facility] Comment on above: Order Comment: No: D o not add to previous draw Result Comment: Give n the appropriate clinical setting a BNP result of >100 pg/mL indicates congestive heart failure. Performed By: #### 9 9909, 96290, 43765, 66455 #### [facility] [address] CBC W/DIFFon 04-12-2021 ABS IMM GRANS 0.1 10*3/uL Normal 0.0-0.2 [facility] Comment on above: Performed By: #### 8 [id number] #### [facility] [address] ABS NEUTROPHILS 10.5 10*3/uL High 1.6-7.6 [facility] Comment on above: Performed By: #### 8 [id number] #### [facility] [address] Basophils (Bld) [#/Vol] 0.0 10*3/uL Normal 0.0-0.2 [facility] Comment on above: Performed By: #### 8 [id number] #### [facility] [address] Basophils/100 WBC (Bld) 0.2 % Normal 0.0-1.0 [facility] Comment on above: Performed By: #### 8 [id number] #### [facility] [address] [place] [address], [facility] Eosinophils (Bld) [#/Vol] 0.3 10*3/uL Normal 0.0-0.5 [facility] Comment on above: Performed By: #### 8 [id number] #### [facility] [address] [place] [address], [facility] Eosinophils/100 WBC (Bld) 2.1 % Normal 0.0-6.0 [facility] Comment on above: Performed By: #### 8 [id number] #### [facility] [address] [facility]. [address] Erythrocyte distribution width (RBC) [Ratio] 17.1 % High 11.5-15.0 [facility] Comment on above: Performed By: #### 8 [id number] #### [facility] [address] [facility]. [address] Hematocrit (Bld) [Volume fraction] 34.8 % Low 39.0-50.0 [facility] Comment on above: Performed By: #### 8 [id number] #### [facility] [address] Hemoglobin (Bld) [Mass/Vol] 10.6 g/dL Low 13.0-17.0 [facility] Comment on above: Performed By: #### 8 5499 #### [facility] [address] [place] [address], [facility] IMMATURE GRANS 0.4 % Normal 0.0-1.0 [facility] Comment on above: Performed By: #### 8 5499 #### [facility] [address] [place] [address], [facility] Lymphocytes (Bld) [#/Vol] 1.4 10*3/uL Normal 1.2-4.0 [facility] Comment on above: Performed By: #### 8 5499 #### [facility] [address] [place] [address], [facility] Lymphocytes/100 WBC (Bld) 10.5 % Low 20.0-45.0 [facility] Comment on above: Performed By: #### 8 5499 #### [facility] [address] [place] [address], [facility] MCH (RBC) [Entitic mass] 27.3 pg Normal 27.0-33.0 [facility] Comment on above: Performed By: #### 8 5499 #### [facility] [address] [place] [address], [facility] MCHC (RBC) [Mass/Vol] 30.5 g/dL Low 32.0-35.0 [facility] Comment on above: Performed By: #### 8 [id number] #### [facility] [address] [place] [place] [address], [facility] MCV (RBC) [Entitic vol] 89.7 fL Normal 82.0-98.0 [facility] Comment on above: Performed By: #### 8 5499 #### [facility] [address] [place] [address], [facility] Monocytes (Bld) [#/Vol] 0.8 10*3/uL Normal 0.1-1.0 [facility] Comment on above: Performed By: #### 8 [id number] #### [facility] [address] [place] [address], [facility] MONOS 6.4 % Normal 5.0-12.0 [facility] Comment on above: Performed By: #### 8 5499 #### [facility] [address] [place] [address], [facility] Neutrophils/100 WBC (Bld) 80.4 % High 40.0-72.0 [facility] Comment on above: Performed By: #### 8 [id number] #### [facility] [address] [place] [address], [facility] Nucleated RBC/100 WBC (Bld) [Ratio] 0 % Normal 0-0 [facility] Comment on above: Performed By: #### 8 [id number] #### [facility] [address] [place] [address], [facility] PLAT CNT 138 10*3/uL Low 150-400 [facility] Comment on above: Performed By: #### 8 [id number] #### [facility] [address] [place] [address], [facility] RBC (Bld) [#/Vol] 3.88 10*6/uL Low 4.20-5.70 [facility] Comment on above: Performed By: #### 8 [id number] #### [facility] [address] [place] [address], [place] WBC (Bld) [#/Vol] 13.05 10*3/uL High 4.00-10.60 [facility] Comment on above: Performed By: #### 8 [id number] #### [facility] [address] [place] [address], [facility] LIVER BATTERYon 04-12-2021 Albumin [Mass/Vol] 3.8 g/dL Normal 3.5-5.7 [facility] Comment on above: Order Comment: No: D o not add to previous draw Performed By: #### 9 9909, 12755, 42958, 28840 #### [facility] [address] [place] [address], [facility] ALKALINE PHOSPH 80 IU/L Normal 34-104 [facility] Comment on above: Order Comment: No: D o not add to previous draw Performed By: #### 9 9909, 74753, 14728, 27475 #### [facility] [address] [place] [address], [place] ALT [Catalytic activity/Vol] 10 U/L Normal 7-52 [facility] Comment on above: Order Comment: No: D o not add to previous draw Performed By: #### 9 9909, 01676, 82575, 27944 #### [facility] [address] [place] [address], [place] AST [Catalytic activity/Vol] 15 U/L Normal 13-39 [facility] Comment on above: Order Comment: No: D o not add to previous draw Performed By: #### 9 9909, 80850, 65158, 54659 #### [facility] [address] [place] [address], [place] Bilirubin [Mass/Vol] 1.0 mg/dL Normal 0.3-1.0 [facility] Comment on above: Order Comment: No: D o not add to previous draw Performed By: #### 9 9909, 18258, 57721, 60166 #### [facility] [address] [place] [address], [place] Bilirubin.direct [Mass/Vol] 0.5 mg/dL High 0.0-0.2 [facility] Comment on above: Order Comment: No: D o not add to previous draw Performed By: #### 9 9909, 45948, 91605, 50529 #### [facility] [address] [place] [address], [place] Protein [Mass/Vol] 7.2 g/dL Normal 6.0-8.3 [facility] Comment on above: Order Comment: No: D o not add to previous draw Performed By: #### 9 9909, 24465, 44748, 08330 #### [facility] [address] [place] [address], [place] MAGNESIUM BLOODon 04-12-2021 Magnesium [Mass/Vol] 2.5 mg/dL Normal 1.9-2.7 [facility] Comment on above: Order Comment: No: D o not add to previous draw Performed By: #### 9 9909, 17430, 01655, 92587 #### [facility] [address] [place] [address], [place] PHOSPHORUS BLOODon Phosphate [Mass/Vol] 3.7 mg/dL Normal 2.5-5.0 [facility] Comment on above: Order Comment: No: D o not add to previous draw Performed By: #### 9 9909, 15844, 56512, 41405 #### [address] POC GLUCOSE LABon 04-12-2021 Glucose [Mass/Vol] 190 mg/dL High 70-100 [facility] Comment on above: Performed By: #### 8 5499 #### [address] [address], [facility] Glucose [Mass/Vol] 117 mg/dL High 70-100 [facility] Comment on above: Performed By: #### 8 5499 #### [address] [address], [facility] PORTABLE CHEST 1 VIEWon 03-20 PORTABLE CHEST 1 VIEW [facility] Department of Radiology [address] [place] [phone] Patient Name: ADWOA PORTER : 1955 Sex: M Age: Race: White Pt. Location: [id number] Patient Status: I Ordered Date: 04/12/2021 4:55:00 [...] edema. Electronically signed: Michaelle Villalba. Transcribed by: [email or web address], User Resident: Electronically Signed by: MICHAELLE VILLALBA @ 04/12/2021 05:27 PM Normal [facility] Comment on above: Order Comment: evalu ate for Pulmonary Edema PROTHROMBIN TIMEon INR Coag (PPP) [Relative time] 2.58 {INR} High 0.91-1.16 [facility] Comment on above: Order Comment: [...] 1995;108:231S-246S. Performed By: #### 3 5200 #### [facility] [address] [place] [address], [facility] PT Coag (PPP) [Time] 27.9 s High 12.3-14.8 [facility] Comment on above: Order Comment: No: D o not add to previous draw Result Comment: ALL RESULTS MUST BE INTERPRETED WITH RESPECT TO BLOOD DRAWING ARTIFACT OR DILUTION ERROR OF ANTICOAGULANT AT THE TIME OF SAMPLING. Performed By: #### 3 5200 #### [facility] [address] [place] [address], [facility] TROPONIN-Ion 04-12-2021 Troponin I.cardiac [Mass/Vol] 0.05 ng/mL High 0.00-0.04 [facility] Comment on above: Order Comment: No: D o not add to previous draw Result Comment: REFE RENCE RANGES: 0.00 - 0.04 ng/ml NORMAL 0.05 - 0.50 ng/ml INDETERMINATE > 0.50 ng/ml CONSISTENT WITH AN M.I. Performed By: #### 9 9909, 67707, 71551, 79718 #### [facility] [address] [place], [place] [address] [place] [address] Provider Letteron 11-16-2020 Provider Letter (Inserted Image. Radha ble to display) November 16, 2020 ADWOA PORTER [address] [place] [phone] ADWOA PORTER 1955 Dear Adwoa, You missed [...] [facility] [address], [place] [address] [facility] Coding Summary.on 04-05-2020 Coding Summary. CODING DATE: 020 FINAL [facility] STATUS: Home (Routine DC) PAYOR: Medicare ADMIT [...] Benjamin CphT Date Saved: 04/05/2020 10:26 am [facility] Aerobic cultureon 12-04-2019 Aerobic Culture Staphylococcus aureus [facility] Aerobic Culture Klebsiella oxytoca F [facility] Transfusion reaction panel ( ABO, Rh)on 12-04-2019 Microscopic observation Gram stain Nom (Unsp spec) [facility] Vital Signs Date Time Vital Sign Value Performing Clinician Facility 11-22-2023 15:15-0500 Body height 170.18 cm Vinnie Stewart Other [facility] 11-22-2023 15:15-0500 Body mass index (BMI) [Ratio] 29.6 kg/m2 Vinnie Stewart Other [facility] Other 11-22-2023 15:15-0500 Body temperature 97.9 [degF] Vinnie Stewart Other [facility] Other 11-22-2023 15:15-0500 Body weight 85.73 kg Vinnie Stewart Other [facility] Other 11-22-2023 15:15-0500 Body weight 85.72 kg DO Vinnie Stewart Work Phone: [facility] 11-22-2023 15:15-0500 Diastolic blood pressure 60 mm[Hg] Vinnie Stewart Other [facility] 11-22-2023 15:15-0500 Respiratory rate 18 /min Vinnie Stewart Other [employer] Other 11-22-2023 15:15-0500 SaO2% (BldA) [Mass fraction] 98 % Vinnie Stewart Other [facility] Other 11-22-2023 15:15-0500 Systolic blood pressure 122 mm[Hg] Vinnie Stewart Other [facility] 11-15-2023 13:40-0500 Body height 170.18 cm Simba Jac Other [facility] 11-15-2023 13:40-0500 Body mass index (BMI) [Ratio] 28.94 kg/m2 Simba Jac Other [facility] [employer] Other 11-15-2023 13:40-0500 Body temperature 96.4 [degF] Simba Jac Other [facility] Other 11-15-2023 13:40-0500 Body weight 83.83 kg Simba Jac Other [employer] Other 11-15-2023 13:40-0500 Body weight 83.82 kg DO Vinnie Stewart Work Phone: [facility] 11-15-2023 13:40-0500 Diastolic blood pressure 62 mm[Hg] Simba Jac Other [facility] 11-15-2023 13:40-0500 Respiratory rate 18 /min Simba Jac Other [employer] Other 11-15-2023 13:40-0500 SaO2% (BldA) [Mass fraction] 92 % Simba Jac Other [employer] Other 11-15-2023 13:40-0500 Systolic blood pressure 110 mm[Hg] Simba Jac Other [facility] 11-13-2023 13:30-0500 Body height 170.18 cm Brittnee Scally Other [facility] 11-13-2023 13:30-0500 Body mass index (BMI) [Ratio] 28.94 kg/m2 Brittnee Scally Other [facility] [employer] Other 11-13-2023 13:30-0500 Body weight 83.83 kg Brittnee Scally Other [facility] [employer] Other 11-13-2023 13:30-0500 Body weight 83.82 kg DO Vinnie Stewart Work Phone: [facility] 11-13-2023 13:30-0500 Diastolic blood pressure 63 mm[Hg] Brittnee Scally Other [facility] 11-13-2023 13:30-0500 Respiratory rate 18 /min Brittnee Scally Other [employer] Other 11-13-2023 13:30-0500 SaO2% (BldA) [Mass fraction] 95 % Brittnee Scally Other [employer] Other 11-13-2023 13:30-0500 Systolic blood pressure 107 mm[Hg] Brittnee Scally Other [facility] 10-08-2023 10:00-0500 Body height 170.18 cm Brittnee Scally Other [facility] 10-08-2023 10:00-0500 Body mass index (BMI) [Ratio] 30.57 kg/m2 Brittnee Scally Other [employer] Other 10-08-2023 10:00-0500 Body weight 88.54 kg Brittnee Scally Other [facility] 09-18-2023 15:00-0400 Body height 170.18 cm Brittnee Scally Other [employer] Other 09-18-2023 15:00-0400 Diastolic blood pressure 72 mm[Hg] Britntee Scally Other [employer] Other 09-18-2023 15:00-0400 Respiratory rate 18 /min Brittnee Scally Other [employer] Other 09-18-2023 15:00-0400 SaO2% (BldA) [Mass fraction] 96 % Brittnee Scally Other [employer] Other 09-18-2023 15:00-0400 Systolic blood pressure 115 mm[Hg] Brittnee Scally Other [employer] Other 06-29-2023 10:30-0400 Body height 170.18 cm Vinnie Stewart Other [employer] Other 06-29-2023 10:30-0400 Body mass index (BMI) [Ratio] 31.99 kg/m2 Vinnie Stewart Other [employer] Other 06-29-2023 10:30-0400 Body weight 92.67 kg Vinnie Stewart Other [employer] Other 06-29-2023 10:30-0400 Diastolic blood pressure 72 mm[Hg] Vinnie Stewart Other [employer] Other 06-29-2023 10:30-0400 Respiratory rate 18 /min Vinnie Stewart Other [employer] Other 06-29-2023 10:30-0400 SaO2% (BldA) [Mass fraction] 95 % Vinnie Stewart Other [employer] Other 06-29-2023 10:30-0400 Systolic blood pressure 124 mm[Hg] Vinnie Stewart Other [employer] Other 06-29-2023 08:15-0400 Body height 170.18 cm Brittnee Scally Other [employer] Other 06-29-2023 08:15-0400 Diastolic blood pressure 62 mm[Hg] Brittnee Scally Other [employer] Other 06-29-2023 08:15-0400 Respiratory rate 18 /min Brittnee Scally Other [employer] Other 06-29-2023 08:15-0400 SaO2% (BldA) [Mass fraction] 94 % Brittnee Scally Other [employer] Other 06-29-2023 08:15-0400 Systolic blood pressure 104 mm[Hg] Brittnee Scally Other [employer] Other 06-18-2023 11:30-0400 Body height 170.18 cm Vinnie Stewart Other [employer] Other 06-18-2023 11:30-0400 Body mass index (BMI) [Ratio] 32.89 kg/m2 Vinnie Stewart Other [employer] Other 06-18-2023 11:30-0400 Body temperature 97.5 [degF] Vinnie Stewart Other [employer] Other 06-18-2023 11:30-0400 Body weight 95.26 kg Vinnie Stewart Other [employer] Other 06-18-2023 11:30-0400 Diastolic blood pressure 72 mm[Hg] Vinnie Stewart Other [employer] Other 06-18-2023 11:30-0400 Respiratory rate 18 /min Vinnie Stewart Other [employer] Other 06-18-2023 11:30-0400 SaO2% (BldA) [Mass fraction] 94 % Vinnie Stewart Other [employer] Other 06-18-2023 11:30-0400 Systolic blood pressure 126 mm[Hg] Vinnie Stewart Other [employer] Other 04-19-2023 11:20-0400 Body height 170.18 cm Simba Jac Other [employer] Other 04-19-2023 11:20-0400 Body mass index (BMI) [Ratio] 32.76 kg/m2 Simba Jac Other [employer] Other 04-19-2023 11:20-0400 Body temperature 97.6 [degF] Simba Jac Other [employer] Other 04-19-2023 11:20-0400 Body weight 94.89 kg Simba Jac Other [employer] Other 04-19-2023 11:20-0400 Diastolic blood pressure 60 mm[Hg] Simba Jac Other [employer] Other 04-19-2023 11:20-0400 Respiratory rate 18 /min Simba Jac Other [employer] Other 04-19-2023 11:20-0400 SaO2% (BldA) [Mass fraction] 98 % Simba Jac Other [employer] Other 04-19-2023 11:20-0400 Systolic blood pressure 120 mm[Hg] Simba Jac Other [employer] Other 03-21-2023 14:00-0400 Body height 170.18 cm Vinnie Stewart Other [employer] Other 03-21-2023 14:00-0400 Body mass index (BMI) [Ratio] 32.42 kg/m2 Vinnie Stewart Other [employer] Other 03-21-2023 14:00-0400 Body weight 93.9 kg Vinnie Stewart Other [employer] Other 03-21-2023 14:00-0400 Diastolic blood pressure 86 mm[Hg] Vinnie Stewart Other [employer] Other 03-21-2023 14:00-0400 Respiratory rate 18 /min Vinnie Stewart Other [employer] Other 03-21-2023 14:00-0400 SaO2% (BldA) [Mass fraction] 94 % Vinnie Stewart Other [employer] Other 03-21-2023 14:00-0400 Systolic blood pressure 132 mm[Hg] Vinnie Stewart Other [employer] Other 02-21-2023 15:45-0400 Body height 170.18 cm Vinnie Stewart Other [employer] Other 02-21-2023 15:45-0400 Body mass index (BMI) [Ratio] 32.57 kg/m2 Vinnie Stewart Other [employer] Other 02-21-2023 15:45-0400 Body weight 94.35 kg Vinnie Stewart Other [employer] Other 02-21-2023 15:45-0400 Diastolic blood pressure 76 mm[Hg] Vinnie Stewart Other [employer] Other 02-21-2023 15:45-0400 Respiratory rate 18 /min Vinnie Stewart Other [employer] Other 02-21-2023 15:45-0400 SaO2% (BldA) [Mass fraction] 97 % Vinnie Stewart Other [employer] Other 02-21-2023 15:45-0400 Systolic blood pressure 134 mm[Hg] Vinnie Stewart Other [employer] Other 02-14-2023 15:48-0400 Body temperature 97.5 [degF] DO Vinnie Stewart Work Phone: [facility] 02-14-2023 15:48-0400 Diastolic blood pressure 80 mm[Hg] DO Vinnie Stewart Work Phone: [facility] 02-14-2023 15:48-0400 Heart rate 86 /min DO Vinnie Stewart Work Phone: [facility] 02-14-2023 15:48-0400 Respiratory rate 16 /min DO Vinnie Stewart Work Phone: [facility] 02-14-2023 15:48-0400 SaO2% (BldA) [Mass fraction] 98 % DO Vinnie Stweart Work Phone: [facility] 02-14-2023 15:48-0400 Systolic blood pressure 137 mm[Hg] DO Vinnie Stewart Work Phone: [facility] 02-14-2023 14:01-0400 Body height 175.26 cm DO Vinnie Stewart Work Phone: [facility] 02-14-2023 06:00-0400 Body weight 97 kg DO Vinnie Stewart Work Phone: [facility] 02-13-2023 20:36-0400 Diastolic blood pressure 79 mm[Hg] DO Vinnie Stewart Work Phone: [facility] 02-13-2023 20:36-0400 Heart rate 86 /min DO Vinnie Stewart Work Phone: [facility] 02-13-2023 20:36-0400 Respiratory rate 16 /min DO Vinnie Stewart Work Phone: [facility] 02-13-2023 20:36-0400 SaO2% (BldA) [Mass fraction] 94 % DO Vinnie Stewart Work Phone: [facility] 02-13-2023 20:36-0400 Systolic blood pressure 146 mm[Hg] DO Vinnie Stewart Work Phone: [facility] 02-13-2023 15:38-0400 Body height 175.26 cm DO Vinnie Stewart Work Phone: [facility] 02-13-2023 15:38-0400 Body temperature 97.8 [degF] DO Vinine Stewart Work Phone: [facility] 02-13-2023 15:38-0400 Body weight 96.16 kg DO Vinnie Stewart Work Phone: [facility] 02-09-2023 12:45-0400 Body height 170.18 cm Vinnie Stewart Other [employer] Other 02-09-2023 12:45-0400 Body mass index (BMI) [Ratio] 33.2 kg/m2 Vinnie Stewart Other [employer] Other 02-09-2023 12:45-0400 Body weight 96.16 kg Vinnie Stewart Other [employer] Other 02-09-2023 12:45-0400 Diastolic blood pressure 82 mm[Hg] Vinnie Stewart Other [employer] Other 02-09-2023 12:45-0400 Respiratory rate 18 /min Vinnie Stewart Other [employer] Other 02-09-2023 12:45-0400 SaO2% (BldA) [Mass fraction] 94 % Vinnie Stewart Other [employer] Other 02-09-2023 12:45-0400 Systolic blood pressure 128 mm[Hg] Vinnie Stewart Other [employer] Other 01-17-2023 15:30-0500 Body height 170.18 cm Vinnie Stewart Other [employer] Other 01-17-2023 15:30-0500 Body mass index (BMI) [Ratio] 36.02 kg/m2 Vinnie Stewart Other [employer] Other 01-17-2023 15:30-0500 Body weight 104.33 kg Vinnie Stewart Other [employer] Other 01-17-2023 15:30-0500 Diastolic blood pressure 82 mm[Hg] Vinnie Stewart Other [employer] Other 01-17-2023 15:30-0500 Respiratory rate 18 /min Vinnie Stewart Other [employer] Other 01-17-2023 15:30-0500 SaO2% (BldA) [Mass fraction] 94 % Vinnie Stewart Other [employer] Other 01-17-2023 15:30-0500 Systolic blood pressure 134 mm[Hg] Vinnie Stewart Other [employer] Other 12-04-2022 13:06-0500 Body height 175.26 cm DO Vinnie Stewart Work Phone: [facility] 12-04-2022 13:06-0500 Body weight 100.8 kg DO Vinnie Stewart Work Phone: [facility] 12-04-2022 13:06-0500 Diastolic blood pressure 84 mm[Hg] DO Vinnie Stewart Work Phone: [facility] 12-04-2022 13:06-0500 Heart rate 86 /min DO Vinnie Terry Work Phone: [facility] 12-04-2022 13:06-0500 Respiratory rate 20 /min DO Vinnie Stewart Work Phone: [facility] 12-04-2022 13:06-0500 SaO2% (BldA) [Mass fraction] 96 % DO Vinnie Stewart Work Phone: [facility] 12-04-2022 13:06-0500 Systolic blood pressure 129 mm[Hg] DO Vinnie Stewart Work Phone: [facility] 11-07-2022 14:45-0500 Body height 170.18 cm Brittnee Scally Other [employer] Other 11-07-2022 14:45-0500 Body mass index (BMI) [Ratio] 39.7 kg/m2 Brittnee Scally Other [employer] Other 11-07-2022 14:45-0500 Body weight 114.99 kg Brittnee Scally Other [employer] Other 11-07-2022 14:45-0500 Diastolic blood pressure 68 mm[Hg] Brittnee Scally Other [employer] Other 11-07-2022 14:45-0500 Respiratory rate 20 /min Brittnee Scally Other [employer] Other 11-07-2022 14:45-0500 SaO2% (BldA) [Mass fraction] Brittnee Scally Other [employer] Other 11-07-2022 14:45-0500 Systolic blood pressure 108 mm[Hg] Brittnee Scally Other [employer] Other 09-28-2022 13:00-0500 Diastolic blood pressure 67 mm[Hg] Gisselle Dickey Other [employer] Other 09-28-2022 13:00-0500 Respiratory rate 18 /min Gisselle Dickey Other [employer] Other 09-28-2022 13:00-0500 SaO2% (BldA) [Mass fraction] 92 % Gisselle Dickey Other [employer] Other 09-28-2022 13:00-0500 Systolic blood pressure 123 mm[Hg] Gisselle Dickey Other [employer] Other 09-28-2022 12:40-0500 Body height 170.18 cm Simba Jac Other [employer] Other 09-28-2022 12:40-0500 Body mass index (BMI) [Ratio] 37.93 kg/m2 Simba Jac Other [employer] Other 09-28-2022 12:40-0500 Body temperature 96.2 [degF] Simba Jac Other [employer] Other 09-28-2022 12:40-0500 Body weight 109.86 kg Simba Jac Other [employer] Other 09-28-2022 12:40-0500 Diastolic blood pressure 81 mm[Hg] Simba Jac Other [employer] Other 09-28-2022 12:40-0500 Respiratory rate 20 /min Simba Jac Other [employer] Other 09-28-2022 12:40-0500 SaO2% (BldA) [Mass fraction] 90 % Simba Jac Other [employer] Other 09-28-2022 12:40-0500 Systolic blood pressure 139 mm[Hg] Simba Jac Other [employer] Other 09-13-2022 14:00-0400 Body height 170.18 cm Vinnie Stewart Other [employer] Other 09-13-2022 14:00-0400 Body mass index (BMI) [Ratio] 35.71 kg/m2 Vinnie Stewart Other [employer] Other 09-13-2022 14:00-0400 Body weight 103.42 kg Vinnie Stewart Other [employer] Other 09-13-2022 14:00-0400 Diastolic blood pressure 81 mm[Hg] Vinnie Stewart Other [employer] Other 09-13-2022 14:00-0400 Respiratory rate 16 /min Vinnie Stewart Other [employer] Other 09-13-2022 14:00-0400 SaO2% (BldA) [Mass fraction] 97 % Vinnie Stewart Other [employer] Other 09-13-2022 14:00-0400 Systolic blood pressure 119 mm[Hg] Vinnie Stewart Other [employer] Other 07-31-2022 15:30-0400 Body height 170.18 cm Brittnee Spain Other [employer] Other 07-31-2022 15:30-0400 Body mass index (BMI) [Ratio] 35.55 kg/m2 Brittnee Scally Other [employer] Other 07-31-2022 15:30-0400 Body weight 102.97 kg Brittnee Scally Other [employer] Other 07-31-2022 15:30-0400 Diastolic blood pressure 78 mm[Hg] Brittnee Scally Other [employer] Other 07-31-2022 15:30-0400 Respiratory rate 20 /min Brittnee Scally Other [employer] Other 07-31-2022 15:30-0400 SaO2% (BldA) [Mass fraction] 95 % Brittnee Scally Other [employer] Other 07-31-2022 15:30-0400 Systolic blood pressure 125 mm[Hg] Brittnee Scally Other [employer] Other 06-20-2022 12:15-0400 Body height 170.18 cm Vinnie Stewart Other [employer] Other 06-20-2022 12:15-0400 Body mass index (BMI) [Ratio] 35.55 kg/m2 Vinnie Stewart Other [employer] Other 06-20-2022 12:15-0400 Body weight 102.97 kg Vinnie Stewart Other [employer] Other 06-20-2022 12:15-0400 Diastolic blood pressure 47 mm[Hg] Vinnie Stewart Other [employer] Other 06-20-2022 12:15-0400 Respiratory rate 18 /min Vinnie Stewart Other [employer] Other 06-20-2022 12:15-0400 SaO2% (BldA) [Mass fraction] 94 % Vinnie Stewart Other [employer] Other 06-20-2022 12:15-0400 Systolic blood pressure 106 mm[Hg] Vinine Stewart Other [employer] Other 06-06-2022 11:36-0400 Body temperature 98 [degF] DO Vinnie Stewart Work Phone: [facility] 03-02-2022 15:30-0400 Body height 170.18 cm Vinnie Stewart Other [employer] Other 03-02-2022 15:30-0400 Body mass index (BMI) [Ratio] 35.39 kg/m2 Vinnie Stewart Other [employer] Other 03-02-2022 15:30-0400 Body temperature 97.5 [degF] Vinnie Stewart Other [employer] Other 03-02-2022 15:30-0400 Body weight 102.51 kg Vinnie Stewart Other [employer] Other 03-02-2022 15:30-0400 Diastolic blood pressure 74 mm[Hg] Vinnie Stewart Other [employer] Other 03-02-2022 15:30-0400 Respiratory rate 20 /min Vinnie Stewart Other [employer] Other 03-02-2022 15:30-0400 SaO2% (BldA) [Mass fraction] 94 % Vinnie Stewart Other [employer] Other 03-02-2022 15:30-0400 Systolic blood pressure 114 mm[Hg] Vinnie Stewart Other [employer] Other 02-19-2022 12:05-0400 Body height 170.18 cm Ruthie Guzman Other [employer] Other 02-19-2022 12:05-0400 Body mass index (BMI) [Ratio] 35.71 kg/m2 Ruthie Guzman Other [employer] Other 02-19-2022 12:05-0400 Body temperature 97.4 [degF] Ruthie Clementemond Other [employer] Other 02-19-2022 12:05-0400 Body weight 103.42 kg Ruthie Guzman Other [employer] Other 02-19-2022 12:05-0400 Diastolic blood pressure 62 mm[Hg] Ruthie Clementemond Other [employer] Other 02-19-2022 12:05-0400 Respiratory rate 20 /min Ruthie Clementemond Other [employer] Other 02-19-2022 12:05-0400 SaO2% (BldA) [Mass fraction] 94 % Ruthie Clementemond Other [employer] Other 02-19-2022 12:05-0400 Systolic blood pressure 116 mm[Hg] Ruthie Clementemond Other [employer] Other 03-22-2022 16:00-0400 Body height 170.18 cm Balbir Mejia Other [employer] Other 02-07-2022 16:00-0400 Body mass index (BMI) [Ratio] 36.02 kg/m2 Balbir Ba Other [employer] Other 02-07-2022 16:00-0400 Body temperature 97.3 [degF] Balbir Mejia Other [employer] Other 02-07-2022 16:00-0400 Body weight 104.33 kg Balbir Mejia Other [employer] Other 02-07-2022 16:00-0400 Diastolic blood pressure 74 mm[Hg] Balbir Mejia Other [employer] Other 02-07-2022 16:00-0400 SaO2% (BldA) [Mass fraction] 98 % Balbir Mejia Other [employer] Other 02-07-2022 16:00-0400 Systolic blood pressure 136 mm[Hg] Balbir Mejia Other [employer] Other 01-11-2022 14:00-0500 Body height 170.18 cm Brittnee Scally Other [employer] Other 01-11-2022 14:00-0500 Body mass index (BMI) [Ratio] 35.5 kg/m2 Brittnee Scally Other [employer] Other 01-11-2022 14:00-0500 Body weight 102.83 kg Brittnee Scally Other [employer] Other 01-11-2022 14:00-0500 Diastolic blood pressure 62 mm[Hg] Brittnee Scally Other [employer] Other 01-11-2022 14:00-0500 Respiratory rate 20 /min Brittnee Scally Other [employer] Other 01-11-2022 14:00-0500 SaO2% (BldA) [Mass fraction] 98 % Brittnee Scally Other [employer] Other 01-11-2022 14:00-0500 Systolic blood pressure 105 mm[Hg] Brittnee Scally Other [employer] Other 11-16-2021 14:00-0500 Body height 170.18 cm Brittnee Scally Other [employer] Other 11-16-2021 14:00-0500 Body mass index (BMI) [Ratio] 35.72 kg/m2 Brittnee Scally Other [employer] Other 11-16-2021 14:00-0500 Body weight 103.47 kg Brittnee Scally Other [employer] Other 11-16-2021 14:00-0500 Diastolic blood pressure 70 mm[Hg] Brittnee Scally Other [employer] Other 11-16-2021 14:00-0500 Respiratory rate 20 /min Brittnee Scally Other [employer] Other 11-16-2021 14:00-0500 SaO2% (BldA) [Mass fraction] 93 % Brittnee Scally Other [employer] Other 11-16-2021 14:00-0500 Systolic blood pressure 123 mm[Hg] Brittnee Scally Other [employer] Other 10-05-2021 14:45-0500 Body height 170.18 cm Brittnee Scally Other [employer] Other 10-05-2021 14:45-0500 Body mass index (BMI) [Ratio] 35.42 kg/m2 Brittnee Scally Other [employer] Other 10-05-2021 14:45-0500 Body weight 102.6 kg Brittnee Scally Other [employer] Other 10-05-2021 14:45-0500 Diastolic blood pressure 74 mm[Hg] Brittnee Scally Other [employer] Other 10-05-2021 14:45-0500 Respiratory rate 20 /min Brittnee Scally Other [employer] Other 10-05-2021 14:45-0500 SaO2% (BldA) [Mass fraction] 95 % Brittnee Scally Other [employer] Other 10-05-2021 14:45-0500 Systolic blood pressure 123 mm[Hg] Brittnee Scally Other [employer] Other 09-26-2021 12:00-0500 Body height 170.18 cm Vinnie Stewart Other [employer] Other 09-26-2021 12:00-0500 Body mass index (BMI) [Ratio] 35.39 kg/m2 Vinnie Stewart Other [employer] Other 09-26-2021 12:00-0500 Body temperature 98.1 [degF] Vinnie Stewart Other [employer] Other 09-26-2021 12:00-0500 Body weight 102.51 kg Vinnie Stewart Other [employer] Other 09-26-2021 12:00-0500 Diastolic blood pressure 72 mm[Hg] Vinnie Stewart Other [employer] Other 09-26-2021 12:00-0500 Respiratory rate 20 /min Vinnie Stewart Other [employer] Other 09-26-2021 12:00-0500 SaO2% (BldA) [Mass fraction] 95 % Vinnie Lucasley Other [employer] Other 09-26-2021 12:00-0500 Systolic blood pressure 118 mm[Hg] Vinnie Stewart Other [employer] Other 12-18-2019 10:11-0500 BMI (Body Mass Index) 35.2 kg/m2 Vinnie [facility] 12-18-2019 10:11-0500 Body weight 108.4 kg [facility] 12-18-2019 10:11-0500 Height 175.26 cm Vinnie [facility] 12-18-2019 10:01-0500 Body Temperature 97.8 [degF] Vinnie Stewart [facility] 12-18-2019 10:01-0500 BP Diastolic 80 mm[Hg] Vinnie [facility] 12-18-2019 10:01-0500 BP Systolic 126 mm[Hg] Vinnie [facility] 12-18-2019 10:01-0500 Pulse (Heart Rate) 108 /min Vinnie Stewart [facility] 12-18-2019 10:01-0500 Respiratory Rate 16 /min Vinnie Stewart [facility] Encounters Encounter Date Encounter Type Care Provider Facility Start: 01-25-2024 End: 01-25-2024 ambulatory BRYCE WATSON [facility] Start: 01-17-2024 End: 01-17-2024 ambulatory Jorge Arroyo Facility:[facility] Start: 12-27-2023 End: 12-27-2023 ambulatory Vinnie Stewart Other [facility] [employer] Other Start: 12-27-2023 Telephone encounter Vinnie [facility] Start: 12-20-2023 End: 12-20-2023 ambulatory Vinnie Stewart Other [employer] Other Start: 12-20-2023 Telephone encounter Vinnie [facility] Start: 12-18-2023 End: 12-19-2023 ambulatory VINNIE STEWART [facility] Start: 12-17-2023 End: 12-17-2023 ambulatory Vinnie Stewart Other [facility] [employer] Other Start: 12-17-2023 Telephone encounter [facility] Start: 12-11-2023 Non-patient / Non-visit DO Vinnie Stewart Work Phone: [facility] [employer] [facility] Work Phone: Start: 12-10-2023 End: 12-11-2023 ambulatory Vinnie Stewart Facility:[facility] Start: 12-10-2023 End: 12-10-2023 Discharged Recurring DO Vinnie Stewart Work Phone: [facility] Work Phone: Start: 12-10-2023 End: 12-10-2023 ambulatory DO Vinnie Stewart Work Phone: [employer] Other Start: 12-10-2023 Nursing evaluation o f patient and report Brittnee Carson [facility] Start: 11-26-2023 End: 11-26-2023 ambulatory BRYCE SHIRLEY [facility] Start: 11-22-2023 End: 11-22-2023 ambulatory Vinnie Stewart Other [employer] Other Start: 11-22-2023 Office outpatient visit 15 minutes Vinnie FRANCISCO [facility] Start: 11-22-2023 Telephone encounter Vinnie [facility] Start: 11-22-2023 End: 11-22-2023 Patient encounter procedure DO Vinnie Stewart Work Phone: [facility] [place] Work Phone: Start: 11-21-2023 End: 11-21-2023 ambulatory Vinnie Stewart Other [employer] Other Start: 11-21-2023 Telephone encounter Vinnie [facility] Start: 11-15-2023 End: 11-15-2023 ambulatory Simba Jac Other [employer] Other Start: 11-15-2023 Office outpatient visit 25 minutes Simba Jac [facility] Start: 11-15-2023 End: 11-15-2023 Patient encounter procedure DO Vinnie Stewart Work Phone: [facility] Work Phone: Start: 11-13-2023 (DM) Diabetes Brittnee Segovia [facility] Start: 11-13-2023 End: 11-13-2023 ambulatory Brittnee Spain Other [employer] Other Start: 11-13-2023 Telephone encounter Brittnee harrington [facility] Start: 11-13-2023 End: 11-13-2023 Patient encounter procedure DO Vinnie Stewart Work Phone: [facility] Work Phone: Start: 11-06-2023 End: 11-06-2023 ambulatory Vinnie Stewart Other [employer] Other Start: 11-06-2023 Telephone encounter Vinnie Palomino [facility] [place] Start: 11-01-2023 End: 11-01-2023 ambulatory Brittnee Spain Other [employer] Other Start: 11-01-2023 Telephone encounter Brittnee Matt [facility] Start: 10-25-2023 End: 10-25-2023 ambulatory Vinnie Stewart Other [employer] Other Start: 10-25-2023 Telephone encounter [facility] Start: 10-22-2023 End: 10-22-2023 ambulatory Brittnee Spain Other [employer] Other Start: 10-22-2023 Telephone encounter Brittnee Matt [facility] Start: 10-19-2023 End: 10-19-2023 ambulatory Vinnie Stewart Other [employer] Other Start: 10-19-2023 Telephone encounter Vinnie ROSALES [facility] Start: 10-08-2023 End: 10-08-2023 ambulatory Brittnee Spain Other [employer] Other Start: 10-08-2023 Nursing evaluation o f patient and report Brittnee Spain [facility] Start: 10-08-2023 End: 10-08-2023 Patient encounter procedure DO Vinnie Stewart Work Phone: [facility] Work Phone: Start: 10-04-2023 (Acute) Acute Visit Brittnee Matt [facility] Start: 10-04-2023 End: 10-04-2023 ambulatory Brittnee Spain Other [employer] Other Start: 10-03-2023 End: 10-03-2023 ambulatory Brittnee Spain Other [employer] Other Start: 10-03-2023 Telephone encounter Brittnee Matt [facility] Start: 09-21-2023 End: 09-21-2023 ambulatory [facility] Start: 09-20-2023 End: 09-20-2023 ambulatory Vinnie Stewart Other [employer] Other Start: 09-20-2023 Telephone encounter [facility] Start: 09-18-2023 (DM) Diabetes Brittnee Spain [facility] Start: 09-18-2023 End: 09-18-2023 ambulatory Vinnie Stewart Other [employer] Other Start: 09-18-2023 Telephone encounter V[facility] Start: 09-17-2023 End: 09-17-2023 ambulatory Vinnie Stewart Other [employer] Other Start: 09-17-2023 Telephone encounter Vinnie [facility] Start: 08-31-2023 End: 08-31-2023 ambulatory Brittnee Spain Other [employer] Other Start: 08-31-2023 Telephone encounter Brittnee Remalouisa [facility] Start: 08-30-2023 End: 08-30-2023 ambulatory UNKNOWN SABINO [employer] Other Start: 08-30-2023 Telephone encounter [facility] Start: 08-23-2023 End: 08-23-2023 ambulatory MASSIMO SWAN [employer] Other Start: 08-23-2023 Telephone encounter Vinnie [facility] Start: 08-20-2023 End: 08-20-2023 ambulatory Vinnie Stewart Other [employer] Other Start: 08-20-2023 Telephone encounter Vinnie [facility] Start: 08-15-2023 Telephone encounter Vinnie [facility] Start: 08-15-2023 End: 08-15-2023 ambulatory BRYCE WATSON [employer] Other Start: 08-03-2023 End: 08-03-2023 ambulatory Vinnie Stewart Other [employer] Other Start: 08-03-2023 Telephone encounter Vinnie [facility] Start: 07-30-2023 End: 07-30-2023 ambulatory Vinnie Stewart Other [employer] Other Start: 07-30-2023 Telephone encounter [facility] Start: 07-27-2023 End: 07-27-2023 ambulatory Vinnie Stewart Other [employer] Other Start: 07-27-2023 Telephone encounter [facility] Start: 07-24-2023 End: 07-24-2023 ambulatory [facility] Start: 07-20-2023 End: 07-20-2023 ambulatory Vinnie Stewart Other [employer] Other Start: 07-20-2023 Telephone encounter Vinnie ROSALES [facility] Start: 07-19-2023 End: 07-19-2023 ambulatory Vinnie Stewart Other [employer] Other Start: 07-19-2023 Telephone encounter Vinnie ROSALES [facility] Start: 07-16-2023 End: 07-16-2023 ambulatory Vinnie Stewart Other [employer] Other Start: 07-16-2023 Telephone encounter Vinnie ROSALES [facility] Start: 07-12-2023 End: 07-12-2023 ambulatory Vinnie Stewart Other [employer] Other Start: 07-12-2023 Telephone encounter Vinnie ROSALES [facility] Start: 06-29-2023 (DM) Diabetes Brittnee Segov[facility] Start: 06-29-2023 End: 06-29-2023 ambulatory Vinnie Stewart Other [employer] Other Start: 06-29-2023 Office outpatient visit 15 minutes Vinnie Stewart [facility] Start: 06-18-2023 End: 06-18-2023 ambulatory Vinnie Stewart Other [employer] Other Start: 06-18-2023 Office outpatient visit 15 minutes Vinnie Stewart [facility] Start: 06-15-2023 End: 06-15-2023 ambulatory Vinnie Setwart Other [employer] Other Start: 06-15-2023 Telephone encounter Vinnie ROSALES [facility] Start: 06-05-2023 End: 06-06-2023 ambulatory [facility] Start: 05-31-2023 End: 05-31-2023 ambulatory Vinnie Stewart Other [employer] Other Start: 05-31-2023 Telephone encounter [facility] Start: 05-18-2023 End: 05-18-2023 ambulatory Vinnie Stewart Other [employer] Other Start: 05-18-2023 Telephone encounter [facility] Start: 05-08-2023 End: 05-08-2023 ambulatory Nicolette Manzano Other [employer] Other Start: 05-08-2023 Telephone encounter Nicolette Manzano [facility] Start: 05-02-2023 End: 05-02-2023 ambulatory Brittnee Spain Other [employer] Other Start: 05-02-2023 Nursing evaluation o f patient and report Brittnee Spain [facility] Start: 04-20-2023 End: 04-20-2023 ambulatory Vinnie Stewart Other [employer] Other Start: 04-20-2023 Telephone encounter Vinnie [facility] Start: 04-19-2023 End: 04-19-2023 ambulatory Simba Jac Other [employer] Other Start: 04-19-2023 Office outpatient visit 15 minutes Gisselle Dickey [facility] Start: 04-19-2023 Office outpatient visit 25 minutes Simba Jac [facility] Start: 04-18-2023 End: 04-18-2023 ambulatory Vinnie Stewart Other [employer] Other Start: 04-18-2023 Telephone encounter [facility] [place] Start: 04-17-2023 Telephone encounter [facility] [place] Start: 04-17-2023 End: 04-17-2023 ambulatory JORGE KLINEANDER Facility:[facility]1 Start: 04-13-2023 End: 04-13-2023 ambulatory Simba Jac Other [facility] [employer] Other Start: 04-13-2023 Telephone encounter Simba Jca [facility] Start: 04-11-2023 End: 04-12-2023 ambulatory SIMBA JAC Facility:[facility]1 Start: 04-02-2023 End: 04-03-2023 ambulatory JORGE [facility] [employer] Other Start: 04-02-2023 Telephone encounter [facility] [place] Start: 03-27-2023 End: 03-28-[address] DEEPAK FOURNIRE . [facility] [employer] Other Start: 03-27-2023 Telephone encounter Brittnee Matt [facility] Start: 03-21-2023 End: 03-21-2023 ambulatory JACOBKAYLAN SIMI [facility] [employer] Other Start: 03-21-2023 Office outpatient visit 15 minutes Vinnie [facility] [place] Start: 03-19-2023 Telephone encounter [facility] [place] Start: 03-19-2023 End: 04-18-2023 ambulatory BROWN Jorge L GIGI [facility] [employer] Other Start: 02-27-2023 End: 02-27-2023 ambulatory Vinnie Stewart Other [employer] Other Start: 02-27-2023 Telephone encounter [facility] [place] Start: 02-21-2023 End: 02-21-2023 ambulatory Yakov To Facility:[facility] Start: 02-21-2023 Office outpatient visit 15 minutes [facility] [place] Start: 02-21-2023 End: 02-21-2023 ambulatory DO Vinnie Stewart Work Phone: [facility] Work Phone: Start: 02-21-2023 End: 02-21-2023 Patient encounter procedure DO Vinnie Lucasley Work Phone: [facility] [place] Work Phone: Start: 02-20-2023 End: 02-20-2023 ambulatory Vinnie Stewart Other [employer] Other Start: 02-20-2023 Telephone encounter [facility] [place] Start: 02-19-2023 End: 03-16-2023 ambulatory SHAIKH Jorge L YU Facility: Start: 02-13-2023 End: 02-14-2023 Evaluation and management of inpatient Vinnie Stewart Facility:[facility] Start: 02-13-2023 End: 02-14-2023 Evaluation and management of inpatient DO Vinnie Stewart Work Phone: [facility] Work Phone: Start: 02-13-2023 Registered Recurring DO Vinnie Stewart Work Phone: [facility] Work Phone: Start: 02-13-2023 End: 02-13-2023 ambulatory Vinnie Stewart Other [employer] Other Start: 02-13-2023 Telephone encounter Vinnie [facility] Start: 02-09-2023 End: 02-09-2023 ambulatory Vinnie Stewart Other [employer] Other Start: 02-09-2023 Office outpatient visit 15 minutes [facility] [place] Start: 02-05-2023 End: 02-05-2023 ambulatory Vinnie Stewart Other [employer] Other Start: 02-05-2023 Telephone encounter [facility] [place] Start: 01-30-2023 End: 01-30-2023 ambulatory Vinnie Stewart Other [employer] Other Start: 01-30-2023 Telephone encounter [facility] [place] Start: 01-29-2023 End: 01-30-2023 ambulatory [facility] Facility:[facility] Start: 01-29-2023 End: 01-29-2023 ambulatory [facility] Start: 01-17-2023 Office outpatient visit 15 minutes [facility] [place] Start: 01-17-2023 End: 02-16-2023 ambulatory SHAIKH Jorge L YU [employer] Other Start: 01-16-2023 End: 01-16-2023 ambulatory Vinnie Stewart Other [employer] Other Start: 01-16-2023 Telephone encounter [facility] [place] Start: 01-05-2023 End: 01-11-2023 Evaluation and management of inpatient NIK BUNN . Facility:[facility] Start: 01-02-2023 End: 01-02-2023 ambulatory CANDELARIA EMA . Facility:[facility] Start: 01-02-2023 End: 01-03-2023 ambulatory [facility] Facility:[facility] Start: 12-26-2022 End: 12-27-2022 ambulatory [facility] Facility[facility] Start: 12-22-2022 End: 12-22-2022 ambulatory Vinnie Stewart Other [employer] Other Start: 12-22-2022 Telephone encounter [facility] [place] Start: 12-20-2022 End: 01-17-2023 ambulatory SHAIKH Jorge L YU Facility:[facility] Start: 12-19-2022 End: 12-19-2022 ambulatory Vinnie Stewart Other [employer] Other Start: 12-19-2022 Telephone encounter [facility] [place] Start: 12-14-2022 End: 12-14-2022 ambulatory Vinnie Stewart Other [employer] Other Start: 12-14-2022 Telephone encounter Vinnie ROSALES [facility] [place] Start: 12-12-2022 End: 12-12-2022 ambulatory Brittnee Spain Other [employer] Other Start: 12-12-2022 Nursing evaluation o f patient and report Brittnee Spain [facility] Start: 12-11-2022 End: 12-11-2022 ambulatory Vinnie Stewart Other [employer] Other Start: 12-11-2022 Telephone encounter [facility] [place] Start: 12-04-2022 End: 12-04-2022 ambulatory DO Vinnie Stewart Work Phone: [facility] Work Phone: Start: 12-04-2022 End: 12-04-2022 Registered Recurring DO Vinnie Stewart Work Phone: [facility] Work Phone: Start: 11-29-2022 End: 11-29-2022 ambulatory Vinnie Stewart Other [employer] Other Start: 11-29-2022 Telephone encounter [facility] [place] Start: 11-27-2022 End: 11-27-2022 ambulatory Vinnie Stewart Other [employer] Other Start: 11-27-2022 Telephone encounter [facility] [place] Start: 11-20-2022 End: 12-20-2022 ambulatory SHAIKH Jorge L YU Facility: Start: 11-14-2022 End: 11-15-[address] [facility]EN [facility] [employer] Other Start: 11-14-2022 Telephone encounter Vinnie Hodges Start: 11-07-2022 (DM) [facility] Start: 11-07-2022 End: 11-07-2022 ambulatory Brittnee Spain Other [employer] Other Start: 11-07-2022 Registered Recurring DO Vinnie Stewart Work Phone: [facility] Work Phone: Start: 11-01-2022 End: 11-01-2022 ambulatory Brittnee Remalouisa Other [employer] Other Start: 11-01-2022 Telephone encounter Brittnee harrington [facility] Start: 10-31-2022 End: 10-31-2022 ambulatory Vinnie Stewart Other [employer] Other Start: 10-31-2022 Telephone encounter Vinnie Hodges Start: 10-27-2022 Telephone encounter Gisselle Dickey [facility] Start: 10-27-2022 End: 10-28-2022 ambulatory BRYCE HARRISONS [employer] Other Start: 10-19-2022 End: 11-19-2022 ambulatory SHAIKH Jorge L YU Facility: Start: 10-11-2022 End: 10-11-2022 ambulatory Brittnee Remalouisa Other [employer] Other Start: 10-11-2022 Telephone encounter Brittnee harrington [facility] Start: 10-09-2022 End: 10-09-2022 ambulatory Vinnie Stewart Other [employer] Other Start: 10-09-2022 Telephone encounter [facility] Start: 10-05-2022 End: 10-05-2022 ambulatory Vinnie Stewart Other [employer] Other Start: 10-05-2022 Telephone encounter Vinnie ROSALES [facility] [place] Start: 10-03-2022 End: 10-03-[address] BIANCA STUART Facility:[facility]1 Start: 09-28-2022 End: 09-28-2022 ambulatory Simba Jac Other [employer] Other Start: 09-28-2022 Office outpatient visit 15 minutes Gisselle Dickey [facility] Start: 09-28-2022 Office outpatient visit 25 minutes Simba Jac [facility] [place] Start: 09-27-2022 End: 09-27-2022 ambulatory Vinnie Stewart Other [employer] Other Start: 09-27-2022 Telephone encounter [facility] [place] Start: 09-19-2022 End: 10-18-2022 ambulatory SHAIKH Jorge L YU Facility:[facility]1 Start: 09-18-2022 Telephone encounter Brittnee Matt [facility] Start: 09-18-2022 End: 09-19-2022 ambulatory SIMBA JAC [employer] Other Start: 09-13-2022 End: 09-13-2022 ambulatory Vinnie Stewart Other [employer] Other Start: 09-13-2022 Office outpatient visit 15 minutes Vinnie [facility] [place] Start: 09-08-2022 End: 09-08-2022 ambulatory Vinnie Stewart Other [employer] Other Start: 09-08-2022 Telephone encounter [facility] [place] Start: 08-31-2022 End: 08-31-2022 ambulatory Brittnee Spain Other [employer] Other Start: 08-31-2022 Telephone encounter Brittnee Spain [place] [facility] Start: 08-21-2022 End: 08-21-2022 ambulatory Vinnie Stewart Other [employer] Other Start: 08-21-2022 Telephone encounter Vinnie Palomino [facility] [place] Start: 08-20-2022 End: 09-18-2022 ambulatory BROWN Jorge L FAEliciaWAD Facility:[facility]1 Start: 08-02-2022 End: 08-02-2022 ambulatory Vinnie Stewart Other [employer] Other Start: 08-02-2022 Telephone [facility] Start: 07-31-2022 (DM) Diabetes Brittnee Remalouisa [facility] Start: 07-31-2022 End: 07-31-2022 ambulatory Brittnee Spain Other [employer] Other Start: 07-20-2022 End: 08-19-2022 ambulatory BROWN H FAWWAD Facility:[facility] Start: 07-19-2022 End: 07-20-2022 ambulatory MASSIMO PECKER Facility:[facility] Start: 07-18-2022 End: 07-18-2022 ambulatory Brittnee Remalouisa Other [employer] Other Start: 07-18-2022 Telephone encounter Brittnee Spain [facility] [place] [facility] Start: 07-11-2022 End: 07-11-2022 ambulatory Vinnie Stewart Other [employer] Other Start: 07-11-2022 Telephone encounter Vinnie Palomino [facility] [place] Start: 06-27-2022 End: 06-27-2022 ambulatory Vinnie Stewart Other [employer] Other Start: 06-27-2022 Telephone encounter [facility] [place] Start: 06-23-2022 End: 06-24-2022 ambulatory PETER D HIGHLANDER Facility:[facility]1 Start: 06-20-2022 End: 06-20-2022 ambulatory Vinnie Stewart Other [employer] Other Start: 06-20-2022 Office outpatient visit 15 minutes Vinnie [facility] [place] Start: 06-19-2022 Telephone encounter Brittnee Matt [facility] Start: 06-19-2022 End: 07-19-2022 ambulatory SHAIKH Jorge L LIMD [employer] Other Start: 06-13-2022 End: 06-16-2022 Evaluation and management of inpatient SHAIKH Jorge L VEGAWAD Facility:[facility]1 Start: 06-06-2022 End: 06-06-2022 ambulatory Vinnie Stewart Other [employer] Other Start: 06-06-2022 Telephone encounter [facility] [place] Start: 06-01-2022 End: 06-02-2022 ambulatory PETER D HIGHLANDER Facility:[facility] Start: 05-30-2022 End: 05-30-2022 ambulatory Vinnie Stewart Other [employer] Other Start: 05-30-2022 Telephone encounter [facility] [place] Start: 05-25-2022 End: 05-26-2022 ambulatory PETER D HIGHLANDER Facility:[facility]1 Start: 05-19-2022 End: 06-16-2022 ambulatory SHAIKH Jorge L VEGAWAD Facility:[facility] Start: 05-18-2022 End: 05-19-2022 ambulatory PETER D HIGHLANDER Facility:[facility] Start: 05-17-2022 End: 05-17-2022 ambulatory Brittnee Judit Other [employer] Other Start: 05-17-2022 Telephone encounter Brittnee Matt [place] [facility] Start: 05-16-2022 End: 05-16-2022 ambulatory Vinnie Stewart Other [employer] Other Start: 05-16-2022 Telephone encounter Vinnie ROSALES [facility] [place] Start: 05-08-2022 End: 05-10-2022 ambulatory VINNIE STEWART Facility:[facility] Start: 05-04-2022 End: 05-04-2022 ambulatory Vinnie Stewart Other [employer] Other Start: 05-04-2022 Telephone encounter Vinnie ROSALES [facility] [place] Start: 04-28-2022 End: 05-02-2022 Evaluation and management of inpatient SHAIKH Jorge L YU Facility:[facility]1 Start: 04-26-2022 End: 04-26-2022 ambulatory Brittnee Remalouisa Other [employer] Other Start: 04-26-2022 Telephone encounter Brittnee merritts [facility] Start: 04-25-2022 End: 04-25-2022 ambulatory Vinnie Stewart Other [employer] Other Start: 04-25-2022 Telephone encounter Vinnie ROSALES [facility] [place] Start: 04-24-2022 End: 04-24-2022 ambulatory Vinnie Stewart Other [employer] Other Start: 04-24-2022 Telephone encounter Vinnie ROSALES [facility] [place] Start: 04-10-2022 End: 04-10-2022 ambulatory Brittnee Judit Other [employer] Other Start: 04-10-2022 Telephone encounter Brittnee Matt [place] [facility] Start: 03-21-2022 End: 03-21-2022 ambulatory Vinnie Stewart Other [employer] Other Start: 03-21-2022 Telephone encounter Vinnie ROSALES [facility] [place] Start: 03-17-2022 End: 03-17-2022 ambulatory Vinnie Stewart Other [employer] Other Start: 03-17-2022 Telephone encounter Vinnie Stewart BOBBY [facility] [place] Start: 03-03-2022 End: 03-03-2022 ambulatory Vinnie Stewart Other [employer] Other Start: 03-03-2022 Telephone encounter Vinnie Stewart BOBBY [facility] [place] Start: 03-02-2022 End: 03-02-2022 ambulatory Vinnie Stewart Other [employer] Other Start: 03-02-2022 Office outpatient visit 15 minutes Vinnie Stewart [facility] [place] Start: 02-20-2022 End: 02-20-2022 ambulatory Vinnie Stewart Other [employer] Other Start: 02-20-2022 Telephone encounter Vinnie Stewart BOBBY [facility] [place] Start: 02-19-2022 End: 02-19-2022 ambulatory Ruthie Guzman Other [employer] Other Start: 02-19-2022 Office outpatient visit 15 minutes Ruthie Guzman [facility] Start: 02-19-2022 Telephone encounter Vinnie ROSALES [facility] Start: 02-10-2022 End: 02-10-2022 ambulatory Vinnie Stewart Other [employer] Other Start: 02-10-2022 Telephone encounter Vinnie ROSALES [facility] [place] Start: 02-07-2022 End: 02-07-2022 ambulatory Balbir Ba Other [employer] Other Start: 02-07-2022 Office outpatient visit 25 minutes Balbir [facility] Start: 02-06-2022 End: 02-06-2022 ambulatory Vinnie Stewart Other [employer] Other Start: 02-06-2022 Telephone encounter [facility] [place] Start: 01-27-2022 End: 01-27-2022 ambulatory Vinnie Stewart Other [employer] Other Start: 01-27-2022 Telephone encounter V[facility] [place] Start: 01-26-2022 End: 01-26-2022 ambulatory Vinnie Stewart Other [employer] Other Start: 01-26-2022 Telephone encounter V[facility] [place] Start: 01-11-2022 (DM) Diabetes Brittnee yee [facility] Start: 01-11-2022 End: 01-11-2022 ambulatory Brittnee Spain Other [employer] Other Start: 01-10-2022 End: 01-10-2022 ambulatory Vinnie Stewart Other [employer] Other Start: 01-10-2022 Telephone encounter V[facility] [place] Start: 01-05-2022 End: 01-05-2022 ambulatory Brittnee Spain Other [employer] Other Start: 01-05-2022 Telephone encounter Brittnee merritts [facility] Start: 12-26-2021 End: 12-26-2021 ambulatory Vinnie Stewart Other [employer] Other Start: 12-26-2021 Telephone encounter Vinnie [facility] [place] Start: 12-20-2021 End: 12-20-2021 ambulatory Brittnee Spain Other [employer] Other Start: 12-20-2021 Telephone encounter Brittnee Matt [place] [facility] Start: 12-09-2021 End: 12-09-2021 ambulatory Vinnie Stewart Other [employer] Other Start: 12-09-2021 Telephone encounter Vinnie Palomino [facility] [place] Start: 11-30-2021 End: 11-30-2021 ambulatory Vinnie Stewart Other [employer] Other Start: 11-30-2021 Telephone encounter Vinnie Plaomino [facility] [place] Start: 11-29-2021 End: 11-29-2021 ambulatory Brittnee Spain Other [employer] Other Start: 11-29-2021 Telephone encounter Brittnee Matt [place] [facility] Start: 11-28-2021 End: 11-28-2021 ambulatory Brittnee Spain Other [employer] Other Start: 11-28-2021 Telephone encounter Vinnie Palomino [facility] [place] Start: 11-21-2021 End: 11-21-2021 ambulatory Brittnee Spain Other [employer] Other Start: 11-21-2021 Telephone encounter Brittnee Spain [facility] [place] [facility] Start: 11-17-2021 End: 11-17-2021 ambulatory Vinnie Stewart Other [employer] Other Start: 11-17-2021 Telephone encounter Vinnie Palomino [facility] [place] Start: 11-16-2021 (DM) Diabetes Brittnee Remaly [facility] Start: 11-16-2021 End: 11-16-2021 ambulatory Brittnee Spain Other [employer] Other Start: 10-11-2021 End: 10-11-2021 ambulatory Vinnie Stewart Other [employer] Other Start: 10-11-2021 Telephone encounter Vinnie duron [facility] Start: 10-10-2021 End: 10-10-2021 ambulatory Vinnie Stewart Other [employer] Other Start: 10-10-2021 Telephone encounter Vinnie ROSALES G [facility] [place] Start: 10-05-2021 (DM) Diabetes Brittnee Judit [facility] Start: 10-05-2021 End: 10-05-2021 ambulatory Brittnee Remalouisa Other [employer] Other Start: 09-26-2021 End: 09-26-2021 ambulatory Vinnie Stewart Other [employer] Other Start: 09-26-2021 Office outpatient visit 15 minutes Vinnie FRANCISCO [facility] [place] Start: 09-16-2021 End: 09-16-2021 ambulatory Brittnee Spain Other [employer] Other Start: 09-16-2021 Telephone encounter Brittnee merritts [facility] Start: 04-12-2021 End: 04-17-2021 Evaluation and management of inpatient PA Facility:[facility] Start: 12-16-2020 End: 12-16-2020 Patient encounter procedure Vinnie Stewart -[facility] Start: 12-06-2020 Registered Recurring Vinnie Stewart - [facility] [place] Start: 12-18-2019 End: 12-18-2019 Discharged Recurring Vinnie Stewart -[facility] Start: 09-23-2019 End: 09-23-2019 Patient encounter procedure Vinnie Stewart -[facility] Start: 02-24-2019 End: 02-24-2019 Admission to day surgery Vinnie Stewart -[facility] Procedures Date Procedure Procedure Detail Performing Clinician Start: 02-13-2023 CT of head without contrast DO Vinnie Lucasley Work Phone: Start: 02-13-2023 Plain chest X-ray [...] Date Care Activity Detail Author Start: 02-23-[address] [facility] Start: 02-22-[address] [facility] Start: 02-21-[address] [facility] Start: 02-20-[address] [facility] Start: 02-19-[address] [facility] Start: 02-18-2023 Blood chemistry [facility] Start: 02-18-[address] [facility] Start: 02-17-2023 Blood chemistry [facility] Start: 02-17-[address] [facility] Start: 02-16-2023 Blood chemistry [facility] Start: 02-16-[address] [facility] Start: 02-15-2023 Blood chemistry [facility] Start: 02-15-[address] [facility] Start: 02-14-2023 Blood chemistry [facility] Start: 02-14-2023 End: 02-14-[address] [facility] Start: 02-14-[address] [facility] Start: 02-13-2023 Hospital admission [facility] Start: 02-13-2023 Physical therapy procedure [facility] Start: 02-13-2023 Referral to occupati onal therapist [facility] Start: 02-13-[address] [facility] Patient Education Heart Failure, Adult (DC) [facility] Work Phone: Patient referral [facility] Work Phone: [facility] Immunizations Immunization Date Immunization Notes Care Provider Fa cility 08-23-2021 COVID-19 Vaccine Pfizer - Documentation Purposes Only Vinnie Stewart Other [facility] 08-10-2021 influenza, seasonal, injectable Vinnei Stewart Other [facility] 01-14-2021 COVID-19 Vaccine Pfizer - Documentation Purposes Only Vinnie Stewart Other [facility] 01-04-2021 COVID-19 Vaccine Moderna - Documentation Purposes Only Vinnie Stewart Other [facility] 12-24-2020 COVID-19 Vaccine Pfizer - Documentation Purposes Only Vinnie Stewart Other [facility] 10-19-2020 pneumococcal conjugate vaccine, 13 valent Vinnie Stewart Other [facility] 08-16-2018 zoster vaccine recombinant Vinnie Stewart Other [facility] 08-23-2016 pneumococcal polysaccharide vaccine, 23 valent Vinnie Stewart Other [facility] 08-21-2016 influenza, injectable, quadrivalent, preservative free DO Vinnie Stewart Work Phone: [facility] 08-21-2016 influenza, injectable, quadrivalent, contains preservative Vinnie Stewart Other [employer] Other NEGATED: Highlighted row has not occurred! 5 influenza, injectable, quadrivalent, contains preservative Patient Objection Vinnie Stewart Other [employer] Other Payers Date Payer Category Payer Medicare [id number] [id number] 2019 Self-pay [id number] 1960 Medicaid [id number] 1959 Unknown [id number] 1954 Unknown [id number] 2.16.8 40.1.495159.3.579.2.647 1954 Unknown [id number] 2.16.84 0.1.353165.3.579.2.593 1954 Unknown [id number] 2.16.84 0.1.639548.3.579.2.593 1954 Unknown [id number] 2.16.84 0.1.913259.3.579.2.593 1954 Unknown [id number] 2.16.84 0.1.676016.3.579.2.593 1954 Unknown [id number] 2.16.84 0.1.153719.3.579.2.593 1954 Unknown [id number] 2.16.84 0.1.742980.3.579.2.593 1954 Unknown [id number] 2.16.84 0.1.794393.3.579.2.593 1954 Unknown [id number] 2.16.84 0.1.033909.3.579.2.593 1954 Unknown [id number] 2.16.84 0.1.214805.3.579.2.593 1954 Unknown [id number] 2.16.84 0.1.528670.3.579.2.593 1954 Unknown [id number] 2.16.84 0.1.255972.3.579.2.593 1954 Unknown [id number] 2.16.84 0.1.824029.3.579.2.593 1954 Unknown [id number] 2.16.84 0.1.003575.3.579.2.593 1954 Unknown [id number] 2.16.84 0.1.488701.3.579.2.593 1954 Unknown [id number] 2.16.84 0.1.191640.3.579.2.593 1954 Unknown [id number] 2.16.84 0.1.242804.3.579.2.593 1954 Unknown [id number] 2.16.84 0.1.822176.3.579.2.593 1954 Unknown [id number] 2.16.84 0.1.510483.3.579.2.593 1954 Unknown [id number] 2.16.84 0.1.029365.3.579.2.593 1954 Unknown [id number] 2.16.84 0.1.071660.3.579.2.593 1954 Unknown [id number] 2.16.84 0.1.921871.3.579.2.593 1954 Unknown [id number] 2.16.84 0.1.824437.3.579.2.593 1954 Unknown [id number] 2.16.84 0.1.452975.3.579.2.593 1954 Unknown [id number] 2.16.84 0.1.917978.3.579.2.593 1954 Unknown [id number] 2.16.84 0.1.027354.3.579.2.593 1954 Unknown [id number] 2.16.84 0.1.248493.3.579.2.593 1954 Unknown [id number] 2.16.84 0.1.236762.3.579.2.593 1954 Unknown [id number] 2.16.84 0.1.425040.3.579.2.593 1954 Unknown [id number] 2.16.84 0.1.854430.3.579.2.593 1954 Unknown [id number] 2.16.84 0.1.542520.3.579.2.593 1954 Unknown [id number] 2.16.84 0.1.533035.3.579.2.593 1954 Unknown [id number] 2.16.84 0.1.650475.3.579.2.593 1954 Unknown [id number] 2.16.84 0.1.452101.3.579.2.593 1954 Unknown [id number] 2.16. 840.1.343701.3.579.2.732 1954 Unknown [id number] 2.16.8 40.1.817020.3.579.2.1286 Unknown [id number] Unknown [id number] 2.16.8 40.1.422488.3.579.2.531 Unknown [id number] 2.16.8 40.1.425176.3.579.2.531 Unknown [id number] 2.16.8 40.1.793493.3.579.2.531 Unknown [id number] 2.16.8 40.1.154464.3.579.2.531 Social History Date Type Detail Facility Start: 12-18-2019 End: 02-13-2023 Tobacco smoking status NMIS Ex-smoker (finding) [facility] Start: 1955 Sex Assigned At Male F [facility] Sex Assigned At Sex Assigned At Bir th [employer] Other Medical Equipment Procedure Code Equipment Code Equipment Origin al Text Equipment Identifier Dates Pen [place] [id number] X 4 MM Start: 03-21-2022 Goals Date Patient Goal Desired Activity /State Functional Status Date Assessment Result Facility 02-14-2023 Functional status Patient at Baseline [facility] Work Phone: Mental Status Date Assessment Result Facility 02-14-2023 Cognitive function Cognitive Sta tus Patient at Baseline [facility] Work Phone: Clinical Notes 04-18-2021 to 01-25-2024 Note Date & Type Note Facility 01-25-2024 Note Coronary artery dise ase is stable with out Concerning symptoms Continue GDMT continue risk factor modifications- heart healthy diet, regular exercise as tolerated and continue all medications. [facility] 01-25-2024 Note [facility] II-III currentl y he appears euvolemic and without exacerbation Per SNF pt is currently taking metolazone and no bumex. Continue GDMT- continue ASA, lipitor, coreg, digoxin, farxiga- DC'd r/t acute infection, hydralazine and isordil Diuretic therapy- will stop metolazone and resume bumex 2 mg bid and may increase to 2mg tid for weight gain or fluid overload. Monitor daily weights, I&O, fluid restriction 1.5-2L/day, renal function and electrolytes- please maintain K+>4 and Mg > 2 [facility] 01-25-2024 Note [facility] CARDIOLOGY PROGR ESS NOTE HPI: Adwoa Porter is a 68 y.o. male here for hospital F/U- [facility] HPI Pt presents today for hospital f/U after recent admit to [facility]. Known PMH HFrEF, CAD, a fib, LV thrombus, severe TV regurg. Denied chest pain, SOB, orthopnea, palpitations. States overall he is feeling well and only complaint is the antibiotic shot. He currently is living at a SNF after DC from hospital, receiving IV antibiotics via PICC line. Admit 01/15/24-01/23/24 Pt was admitted to [facility] for Sepsis- non healing DFU, Acute resp failure, cellulitis of leg, bacteremia, CKD, HFrEF, P a fib, COPD, DM ty2 Was treated with IVF, broad spectrum IV antibiotics. Had I&D of Lt foot wound. Bumex and farxiga held r/t dehydration and infection. PICC line was placied for IV Rocephin, linezolid and IM AMIkacin. 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 Review of Systems Constitutional: Negative. Respiratory: Negative. Cardiovascular: Negative. Neurological: Negative. All other systems reviewed and are negative. Visit Vitals BP 102/58 (BP Location: Left arm, Patient Position: Sitting) Pulse 85 Ht 1.753 m (5' 9 ) Wt 87.1 kg (192 lb) SpO2 93% BMI 28.35 kg/m??? Smoking Status Every Day BSA 2.06 m??? Allergies Allergen Reactions Gabriela Inhibitors Medications: [...] morning and at bedtime. 180 tablet 3 cyanocobalamin (Vitamin B-12) 1,000 mcg tablet Take 1 tablet by mouth in the morning. dapagliflozin (Farxiga) 10 mg Take 1 tablet (10 mg) by mouth once daily as directed. 90 tablet 2 digoxin (Lanoxin) 125 MCG tablet Take 1 tablet by mouth in the morning. gabapentin (Neurontin) 400 mg capsule Take 1 capsule by mouth in the morning and at bedtime. hydrALAZINE (Apresoline) 50 mg tablet Take 1 tablet by mouth with breakfast, with lunch, and with evening meal. HYDROcodone-acetaminophen ([place]) 5-325 mg tablet Take 1 tablet by mouth every 8 (eight) hours if needed. insulin lispro (HumaLOG) 200 unit/mL (3 mL) insulin pen pen Inject 40 Units under the skin. isosorbide dinitrate (Isordil) 20 mg tablet Take 1 tablet (20 mg) by mouth in the morning and at bedtime. 180 tablet 3 levothyroxine (Synthroid, Levoxyl) 50 mcg tablet TAKE 1 TABLET BY MOUTH EVERY MORNING before BREAKFAST ON AN EMPTY STOMACH metOLazone (Zaroxolyn) 2.5 mg tablet Take 1 tablet (2.5 mg) by mouth every 7 (seven) days. (Patient taking differently: Take 2.5 mg by mouth in the morning.) 12 tablet 1 nitroglycerin (Nitrostat) 0.4 mg SL tablet DISSOLVE 1 TABLET UNDER THE TONGUE NEEDED FOR CHEST PAIN- MAY REPEAT EVERY 5 MINUTES IF NEEDED ( MAX 3 DOSES.- IF NO RELIEF CALL 911) potassium chloride CR (Klor-Con M10) 10 mEq ER tablet Take 20 mEq by mouth in the morning, at noon, and at bedtime. Do not crush or chew. spironolactone (Aldactone) 25 mg tablet Take 1 tablet (25 mg) by mouth in the morning. 90 tablet 3 warfarin sodium (WARFARIN ORAL) 2.5 mg with evening meal. 5 mg on Tuesdays & 2.5 mg on Sundays, Mondays, Wednesdays, Fridays, & Saturdays bumetanide (Bumex) 2 mg tablet Take 1 tablet (2 mg) by mouth in the morning, at noon, and at bedtime. (Patient not taking: Reported on 01/25/2024) 270 tablet 3 cholecalciferol (Vitamin D-3) 50 MCG (1999 UT) tablet Take 2,000 Units by mouth in the morning. dulaglutide (Trulicity) 0.75 mg/0.5 mL pen injector Inject 0.75 mg under the skin 1 (one) time per week. ferrous sulfate 325 (65 Fe) MG tablet Take 1 tablet by mouth in the morning. Current Facility-Administered Medications on File Prior to Visit Medication Dose Route Frequency Provider Last Rate Last Admin ipratropium (Atrovent) 0.02 % nebulizer solution 0.5 mg 0.5 mg nebulization q6h Massimo Swan NP Physical Exam: Constitutional: Appearance: Normal appearance. Without apparent distress, chronically ill- obese HENT: Head: Normocephalic and atraumatic. Nose: Nose normal. Mouth/Throat: Mouth: Mucous membranes are moist. Eyes: Extraocular Movements: Extraocular movements intact. Conjunctiva/sclera: Conj (more content not included)... [facility] 01-25-2024 Note Patient here for fol low up TB. Bumex was stopped by Dr. Fournier upon discharge. Denies chest pain, SOB, palpitations lightheadedness/syncope, and bleeding on warfarin. Review of Systems Cardiovascular: Positive for leg swelling. Skin: Positive for poor wound healing. Musculoskeletal: Positive for muscle weakness. All other systems reviewed and are negative. [facility] 12-20-2023 Evaluation note Encounter Date Diagnosis Assessment Notes Dec, Facet arthritis of lumbar region (ICD-10 - M46.96) [employer] Other 01-29-2024 Evaluation note* Encounter Date Diagnosis Assessment Notes Treatment Notes Treatment Clinical Notes Nov, Increased urinary frequency (ICD-10 - R35.0) [employer] Other 01-22-2024 Evaluation note* Encounter Date Diagnosis [...] a burger and a few fries from [employer] before he came here. He said that [...] and making changes by Shaw Rondon RN, [facility][NOTE 3]. 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 failure w/hypoxia, acute on systolic chronic HF Medical History [facility]- r ight great toe bleeding (not stopping) Medical History pneumonia-[facility] 06-[address] [facility]-7-2023 Medical History [id number] Medical History NON RESPONSIVE X 2 [...] Hospitalization History rt. heart cath [facility] Stout- [facility] 05/11/16 Hospitalization History Water retention/ [facility] 02/2017 Hospitalization History Observation-[facility] pital 11/2017 Hospitalization History INFECTION IN LEFT SMALL TOE AND FOOT 11/2018 Hospitalization History [facility] -- ICU -- COPD, SMAL L WOUND ON LEFT FOOT 12/2019 Hospitalization History COPD [facility] [place] 12/2019 Hospitalization History Ankle wound 01/2020 Hospitalization History COVID 11/2020 Hospitalization History A-FIB, CHF, KIDNEY ISSUE S 03/2021 Hospitalization History [facility] 01/2023 Hospitalization History [facility] discha rged 03-27-2023 Hospitalization History [facility] x2 7-2 023 Hospitalization History [facility] 10-2 023 Hospitalization History [facility] rib fx left Hospitalization History [facility] -pnemo jennifer [employer] Other 01-08-2024 NotePatient here for 2 mo follow up CHF, permanent afib, and CAD. He was admitted to [facility] last month for sepsis and pneumonia. He denies chest pain, SOB, and bleeding on warfarin. Doing well s/p hospital admission. Had follow up labs on 11/09/2023. Review of Systems Cardiovascular: Positive for leg swelling (L > R). Musculoskeletal: Positive for muscle weakness. All other systems reviewed and are negative.[facility] 11-26-2023 NoteUTP CARDIOLOGY PROGRESS NOTE HPI: Adwoa Porter is a 68 y.o. male here for HFrEF, CAD, a fib, LV thrombus, severe TV regurg. HPI 68 yo male with known h/o coronary artery disease with CREDIT OFFICER of the RCA and mild to moderate [...] amputation in October 2020. Patient here for 2 mo follow up CHF, permanent afib, and CAD. He was admitted to [facility] last month for sepsis and pneumonia. He denies chest pain, SOB, and bleeding on warfarin. Doing well s/p hospital admission. Had follow up labs on 11/09/2023. Currently denied chest pain, SOB or orthopnea. Admits to having ulcerations on BLE that currently have dressings intact. Denied fever, chill, N/V/D. Review of Systems Cardiovascular: Positive for leg swelling (L > R). Musculoskeletal: Positive for muscle weakness. All other systems reviewed and are negative. Previous HPI per Dr Girish HAIDER Adwoa is seen in follow up. He is a 68 yo man with complex medical history. Prior medical history is significant for coronary artery disease with CREDIT OFFICER of the RCA and mild to moderate [...] October 2020. He was recently admitted to [facility] in August 2023 with acute respiratory [...] breath at rest. He recovered at the correction facility but he is now back home. No chest pain. His leg swelling has significantly improved. He does not feel palpitations. Visit Vitals BP 113/71 (BP Location: Left arm, Patient Position: Sitting) Pulse 86 Ht 1.753 m (5' 9 ) Wt 86.2 kg (190 lb) SpO2 99% BMI 28.06 kg/m??? Smoking Status Every Day BSA 2.05 m??? Allergies Allergen Reactions Gabriela Inhibitors Medications: Current Outpatient Medications on File Prior to Visit Medication Sig Dispense Refill amitriptyline (Elavil) 25 mg tablet Take 1 tablet by mouth if needed at bedtime. aspirin 81 mg EC tablet Take 81 mg by mouth in the morning. atorvastatin (Lipitor) 80 mg tablet Take 80 mg by mouth at bedtime. bumetanide (Bumex) 2 mg tablet Take 1 tablet (2 mg) by mouth in the morning, at noon, and at bedtime. 270 tablet 3 carvedilol (Coreg) 25 mg tablet Take 1 tablet (25 mg) by mouth in the morning and at bedtime. 180 tablet 3 cholecalciferol (Vitamin D-3) 50 MCG (2000 UT) tablet Take 2,000 Units by mouth in the morning. cyanocobalamin (Vitamin B-12) 1,000 mcg tablet Take 1 tablet by mouth in the morning. dapagliflozin (Farxiga) 10 mg Take 1 tablet (10 mg) by mouth once daily as directed. 90 tablet 2 digoxin (Lanoxin) 125 MCG tablet Take 1 tablet by mouth in the morning. dulaglutide (Trulicity) 0.75 mg/0.5 mL pen injector Inject 0.75 mg under the skin 1 (one) time per week. ferrous sulfate 325 (65 Fe) MG tablet Take 1 tablet by mouth in the morning. gabapentin (Neurontin) 400 mg capsule Take 1 capsule by mouth in the morning and at bedtime. hydrALAZINE (Apresoline) 50 mg tablet Take 1 tablet by mouth with breakfast, with lunch, and with evening meal. HYDROcodone-acetaminophen ([place]) 5-325 mg tablet Take 1 tablet by mouth every 8 (eight) hours if needed. insulin lispro (HumaLOG) 200 unit/mL (3 mL) insulin pen pen Inject 40 Units under the skin. isosorbide dinitrate (Isordil) 20 mg tablet Take 1 tablet (20 mg) by mouth in the morning and at bedtime. 180 tablet 3 nitroglycerin (Nitrostat) 0.4 mg SL tablet DISSOLVE 1 TABLET UNDER THE TONGUE NEEDED FOR CHEST PAIN- MAY REPEAT EVERY 5 MINUTES IF NEEDED ( MAX 3 DOSES.- IF NO RELIEF CALL 911) potassium chloride CR (Klor-Con M10) 10 mEq ER tablet Take 20 mEq by mouth in the morning and at bedtime. Do not crush or chew. lucy (more content not included)...[facility] 11-26-2023 NoteRemains on warfarin Denied any bleeding tendencies [facility] 11-26-2023 NoteMonitor with routine echoUnOhio State University [facility] 11-26-2023 NoteDevice interrogation q 6 monthsUnOhio [facility]01-08-2024 NoteContinue coreg AICD in placeUnOhio [facility]01-08-2024 NoteRemains on statin [facility]01-08-2024 NoteHypertension is well controlled 113/71 Remains on Coreg, hydralazine, isordil, aldacotonUnOhio State University [facility]01-08-2024 NoteNYHC IIIc- currently euvolemic without exacerbation Continue GDMT- ASA, lipitor, coreg, farxiga, digoxin, hydralazine, isordil, aldactone Diuretic therapy- bumex and metolazone= f/U with nephrology Monitor daily weights, I&O, fluid restriction 1.5-2L/day, renal function and electrolytes-[facility]01-08-2024 NoteRemains on GDMT [facility]01-08-2024 [id number]= 5- HTN, CHF, CAD, DM remainds on warfarin anticoagulation, DIgoxin and COregUnOhio State University [facility]01-08-2024 NoteCoronary artery disease is stable Continue GDMT- ASA, lipitor, coreg continue risk factor modifications- heart healthy diet, regular exercise as tolerated and continue all medications.[facility] 11-22-2023 Evaluation note* Encounter Date Diagnosis [...] arthritis of lumbar region (ICD-10 - M46.96) [employer] Other 01-03-2024 Evaluation note* Encounter Date Diagnosis Assessment Notes Treatment Notes Treatment Clinical Notes Nov, Facet arthritis of lumbar region (ICD-10 - M46.96) [employer] Other 12-28-2023 Evaluation note* Encounter Date Diagnosis [...] continue follow-up with hematology as needed basis. 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 failure w/hypoxia, acute on systolic chronic HF Medical History [facility]- r ight great toe bleeding (not stopping) Medical History pneumonia-[facility] 06-[address] [facility]-7-2023 Medical History [id number] Surgical History Cardiac catherization (07/2010) Surgical History AICD insertion (11/2010) Surgical History right sided heart cath - [facility] 10/2013 Surgical History appendectomy Surgical History rt [...] Hospitalization History rt. heart cath Rex Stout- [facility] 05/11/16 Hospitalization History Water retention/ [facility] 02/2017 Hospitalization History Observation-[facility] 11/2017 Hospitalization History INFECTION IN LEFT SMALL TOE AND FOOT 11/2018 Hospitalization History [facility] -- ICU -- COPD, SMAL L WOUND ON LEFT FOOT 12/2019 Hospitalization History COPD [facility] [place] 12/2019 Hospitalization History Ankle wound 01/2020 Hospitalization History COVID 11/2020 Hospitalization History A-FIB, CHF, KIDNEY ISSUE S 03/2021 Hospitalization History [facility] 01/2023 Hospitalization History [facility] discha rged 03-27-2023 Hospitalization History [facility] x2 7-2 023 Hospitalization History [facility] 10-2 023 [employer] Other 12-19-2023 History general Narrative - Reported* [...] Medical History [facility] Medical History 04/28/2022 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 failure w/hypoxia, acute on systolic chronic HF Medical History [facility]- r ight great toe bleeding (not stopping) Medical History pneumonia-[facility] 06-[address] [facility]-7-2023 Medical History [id number] Surgical History Cardiac catherization (07/2010) Surgical [...] Hospitalization History rt. heart cath Rex Stout- [facility] 05/11/16 Hospitalization History Water retention/ [facility] 02/2017 Hospitalization History Observation-[facility] pital 11/2017 Hospitalization History INFECTION IN LEFT SMALL TOE AND FOOT 11/2018 Hospitalization History [facility] -- ICU -- COPD, SMAL L WOUND ON LEFT FOOT 12/2019 Hospitalization History COPD [facility] [place] 12/2019 Hospitalization History Ankle wound 01/2020 Hospitalization History COVID 11/2020 Hospitalization History A-FIB, CHF, KIDNEY ISSUE S 03/2021 Hospitalization History [facility] 01/2023 Hospitalization History [facility] discha rged 03-27-2023 Hospitalization History [facility] x2 7-2 023 Hospitalization History [facility] 10-2 023 [employer] Other 12-08-2023 History general Narrative - Reported* [...] Medical History [facility] Medical History 04/28/2022 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 failure w/hypoxia, acute on systolic chronic HF Medical History [facility]- r ight great toe bleeding (not stopping) Medical History pneumonia-[facility] 06-[address] [facility]-7-2023 Medical History [id number] Surgical History Cardiac catherization (07/2010) Surgical [...] Hospitalization History rt. heart cath Rex Stout- [facility] 05/11/16 Hospitalization History Water retention/ [facility] 02/2017 Hospitalization History [facility] 11/2017 Hospitalization History INFECTION IN LEFT SMALL TOE AND FOOT 11/2018 Hospitalization History [facility] -- ICU -- COPD, SMAL L WOUND ON LEFT FOOT 12/2019 Hospitalization History COPD [facility] [place] 12/2019 Hospitalization History Ankle wound 01/2020 Hospitalization History COVID 11/2020 Hospitalization History A-FIB, CHF, KIDNEY ISSUE S 03/2021 Hospitalization History [facility] 01/2023 Hospitalization History [facility] discha rged 03-27-2023 Hospitalization History [facility] x2 7-2 023 Hospitalization History [facility] 10-2 023 [employer] Other 12-06-2023 History general Narrative - Reported* [...] Medical History [facility] Medical History 04/28/2022 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 failure w/hypoxia, acute on systolic chronic HF Medical History [facility]- r ight great toe bleeding (not stopping) Medical History pneumonia-[facility] 06-[address] [facility]-7-2023 Medical History [id number] Surgical History Cardiac catherization (07/2010) Surgical History AICD insertion (11/2010) Surgical History right sided heart cath - [place] 10/2013 Surgical History appendectomy Surgical History rt heart cath 05/11/16 Surgical History pacemaker 07/2016 Surgical History SKIN GRAFT-FROM LEFT LEG TO LEF T FOOT 10/2018 Surgical History LEFT SMALL TOE AMPUTATION WITH SOME FOOT BONE 11/2018 Surgical History COLONOSCOPY AND EGD [facility] Surgical History amputation left fifth toe Surgical History Ankle I/D LEFT 01/2020 Surgical History Left heel skin graft 03/29/2020 Surgical History SKIN GRAFT TO LEFT FOOT 03/2020 Surgical History CATARACT REMOVED ON RIGHT EYE Surgical History CATARACT REMOVED FROM LEFT EYE 06/2021 Hospitalization History see surgical hx Hospitalization History rt. heart cath Rex Stout- [facility] 05/11/16 Hospitalization History Water retention/ [facility] 02/2017 Hospitalization History Observation-[facility] 11/2017 Hospitalization History INFECTION IN LEFT SMALL TOE AND FOOT 11/2018 Hospitalization History [facility] -- ICU -- COPD, SMAL L WOUND ON LEFT FOOT 12/2019 Hospitalization History COPD [facility] [place] 12/2019 Hospitalization History Ankle wound 01/2020 Hospitalization History COVID 11/2020 Hospitalization History A-FIB, CHF, KIDNEY ISSUE S 03/2021 Hospitalization History [facility] 01/2023 Hospitalization History [facility] discha rged 03-27-2023 Hospitalization History [facility] x2 7-2 023 Hospitalization History [facility] 10-2 023 [employer] Other 12-04-2023 Evaluation note* Encounter Date Diagnosis Assessment Notes Treatment Notes Treatment Clinical Notes Oct, Type 2 diabetes mellitus with hyperglycemia (ICD-10 - E11.65) [employer] Other 12-01-2023 Evaluation note* Encounter Date Diagnosis Assessment Notes Treatment Notes Treatment Clinical Notes Oct, Facet arthritis of lumbar region (ICD-10 - M46.96) [employer] Other 12-01-2023 History general Narrative - Reported* [...] Medical History [facility] Medical History 04/28/2022 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 failure w/hypoxia, acute on systolic chronic HF Medical History [facility]- r ight great toe bleeding (not stopping) Medical History pneumonia-[facility] 06-[address] [facility]-7-2023 Medical History [id number] Surgical History Cardiac catherization (07/2010) Surgical [...] Hospitalization History rt. heart cath Rex Stout- [facility] 05/11/16 Hospitalization History Water retention/ [facility] 02/2017 Hospitalization History Observation-[facility] pital 11/2017 Hospitalization History INFECTION IN LEFT SMALL TOE AND FOOT 11/2018 Hospitalization History [facility] -- ICU -- COPD, SMAL L WOUND ON LEFT FOOT 12/2019 Hospitalization History COPD [facility] [place] 12/2019 Hospitalization History Ankle wound 01/2020 Hospitalization History COVID 11/2020 Hospitalization History A-FIB, CHF, KIDNEY ISSUE S 03/2021 Hospitalization History [facility] 01/2023 Hospitalization History [facility] discha rged 03-27-2023 Hospitalization History [facility] x2 7-2 023 Hospitalization History [facility] 10-2 023 [employer] Other 11-20-2023 Evaluation note* Encounter Date Diagnosis [...] spent on education by Lashell KARIMI, RN [employer] Other 11-16-2023 Evaluation note* Encounter Date Diagnosis Assessment Notes Treatment Notes Treatment Clinical Notes Sep, Type 2 diabetes mellitus with hyperglycemia (ICD-10 - E11.65) Adwoa came in today for download and Evaluation of his Lucas report after calling and stating earlier this week that his BGs have been high and he is out of [facility] and nearly out of [facility]. He failed to bring his meter or [...] able to help patient improve his glycemia. 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 failure w/hypoxia, acute on systolic chronic HF Medical History [facility]- r ight great toe bleeding (not stopping) Medical History pneumonia-[facility] 06-[address] [facility]-7-2023 Medical History [id number] Surgical History Cardiac catherization (07/2010) Surgical History AICD insertion (11/2010) Surgical History right sided heart cath - [place] 10/2013 Surgical History appendectomy Surgical History rt [...] Hospitalization History rt. heart cath Rex Stout- [facility] 05/11/16 Hospitalization History Water retention/ [facility] 02/2017 Hospitalization History Observation-[facility] 11/2017 Hospitalization History INFECTION IN LEFT SMALL TOE AND FOOT 11/2018 Hospitalization History [facility] -- ICU -- COPD, SMAL L WOUND ON LEFT FOOT 12/2019 Hospitalization History COPD [facility] [place] 12/2019 Hospitalization History Ankle wound 01/2020 Hospitalization History COVID 11/2020 Hospitalization History A-FIB, CHF, KIDNEY ISSUE S 03/2021 Hospitalization History [facility] 01/2023 Hospitalization History [facility] discha rged 03-27-2023 Hospitalization History [facility] x2 7-2 023 Hospitalization History [facility] 10-2 023 [employer] Junko Tada Other 11-03-2023 NoteUT Cardiology - [facility] Subjective Adwoa Porter is a 68 y.o. 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 He was recently admitted to [facility] in August 2023 with acute respiratory [...] breath at rest. He recovered at the correction facility but he is now back home. [...] distension. 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 failure w/hypoxia, acute on systolic chronic HF Medical History [facility]- r ight great toe bleeding (not stopping) Medical History pneumonia-[facility] 06-[address] [facility]-7-2023 Medical History [id number] Surgical History Cardiac catherization (07/2010) Surgical History AICD insertion (11/2010) Surgical History right sided heart cath - [place] 10/2013 Surgical History appendectomy Surgical History rt [...] Hospitalization History rt. heart cath Rex Stout- [facility] 05/11/16 Hospitalization History Water retention/ [facility] 02/2017 Hospitalization History Observation-[facility] 11/2017 Hospitalization History INFECTION IN LEFT SMALL TOE AND FOOT 11/2018 Hospitalization History [facility] -- ICU -- COPD, SMAL L WOUND ON LEFT FOOT 12/2019 Hospitalization History COPD [facility] [place] 12/2019 Hospitalization History Ankle wound 01/2020 Hospitalization History COVID 11/2020 Hospitalization History A-FIB, CHF, KIDNEY ISSUE S 03/2021 Hospitalization History [facility] 01/2023 Hospitalization History [facility] discha rged 03-27-2023 Hospitalization History [facility] x2 7-2 023 Hospitalization History [facility] 10-2 023 [facility] J[employer] Other 10-31-2023 Evaluation note* Encounter Date Diagnosis [...] (hypertension) (ICD-10 - I10) reasonable today Aug, journalist 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 failure w/hypoxia, acute on systolic chronic HF Medical History [facility]- r ight great toe bleeding (not stopping) Medical History pneumonia-[facility] 06-[address] [facility]-7-2023 Medical History [id number] Surgical History Cardiac catherization (07/2010) Surgical History AICD insertion (11/2010) Surgical History right sided heart cath - [place] 10/2013 Surgical History appendectomy Surgical History rt [...] hx Hospitalization History rt. heart cath Rex Sotut- [facility] 05/11/16 Hospitalization History Water retention/ [facility] 02/2017 Hospitalization History Observation-[facility] 11/2017 Hospitalization History INFECTION IN LEFT SMALL TOE AND FOOT 11/2018 Hospitalization History [facility] -- ICU -- COPD, SMAL L WOUND ON LEFT FOOT 12/2019 Hospitalization History COPD [facility] [place] 12/2019 Hospitalization History Ankle wound 01/2020 Hospitalization History COVID 11/2020 Hospitalization History A-FIB, CHF, KIDNEY ISSUE S 03/2021 Hospitalization History [facility] 01/2023 Hospitalization History [facility] discha rged 03-27-2023 Hospitalization History [facility] x2 7-2 023 Hospitalization History [facility] 10-2 023 [facility] Junko Tada Other 10-30-2023 Evaluation note* Encounter Date Diagnosis Assessment Notes Treatment Notes Treatment Clinical Notes Aug, Facet arthritis of lumbar region (ICD-10 - M46.96) [employer] Other 10-13-2023 History general Narrative - Reported* [...] Medical History [facility] Medical History 04/28/2022 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 failure w/hypoxia, acute on systolic chronic HF Medical History [facility]- r ight great toe bleeding (not stopping) Medical History pneumonia-[facility] 06-[address] [facility]-7-2023 Surgical History Cardiac catherization (07/2010) Surgical History AICD insertion (11/2010) Surgical History right sided heart cath - [place] 10/2013 Surgical History appendectomy Surgical History rt [...] hx [facility] Water [facility]/ [facility] 02/2017 Hospitalization History [facility] 11/2017 Hospitalization History INFECTION IN LEFT SMALL TOE AND FOOT 11/2018 Hospitalization History [facility] -- ICU -- COPD, SMAL L WOUND ON LEFT FOOT 12/2019 Hospitalization History COPD [facility] [place] 12/2019 Hospitalization History Ankle wound 01/2020 Hospitalization History COVID 11/2020 Hospitalization History A-FIB, CHF, KIDNEY ISSUE S 03/2021 Hospitalization History [facility] 01/2023 Hospitalization History [facility] discha rged 03-27-2023 Hospitalization History [facility] x2 7-2 023 [employer] Other 10-12-2023 History general Narrative - Reported* [...] Medical History [facility] Medical History 04/28/2022 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 failure w/hypoxia, acute on systolic chronic HF Medical History [facility]- r ight great toe bleeding (not stopping) Medical History pneumonia-[facility] 06-[address] [facility]-7-2023 Surgical History Cardiac catherization (07/2010) Surgical History AICD insertion (11/2010) Surgical History right sided heart cath - [place] 10/2013 Surgical History appendectomy Surgical History rt [...] Hospitalization History rt. heart cath Rex Stout- [facility] 05/11/16 Hospitalization History Water retention/ [facility] 02/2017 Hospitalization History Observation-[facility] 11/2017 Hospitalization History INFECTION IN LEFT SMALL TOE AND FOOT 11/2018 Hospitalization History [facility] -- ICU -- COPD, SMAL L WOUND ON LEFT FOOT 12/2019 Hospitalization History COPD [facility] [place] 12/2019 Hospitalization History Ankle wound 01/2020 Hospitalization History COVID 11/2020 Hospitalization History A-FIB, CHF, KIDNEY ISSUE S 03/2021 Hospitalization History [facility] 01/2023 Hospitalization History [facility] discha rged 03-27-2023 Hospitalization History [facility] x2 7-2 023 [employer] Other 10-05-20[facility] NotePatient here for follow up [facility] discharge yesterday for HFrEF. His girlfriend called [...] weakness. All other systems reviewed and are negative.[facility] 08-23-2023 NoteCardiovascular Medicine [facility] SUBJECTIVE Chief Complaint Patient presents with Wheezing Hospital Follow-up Adwoa Porter is a 68 y.o. male here for follow-up. Congestive Heart Failure His past medical history is significant for CAD. Coronary Artery Disease His past medical history is significant for CHF. Adwoa Porter is a 67 y.o. 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 Patient here for follow up [facility] discharge yesterday for HFrEF. His girlfriend called the office yesterday when he was being discharged to make us aware that he's still very swollen and SOB. He is down 12# from his office visit last week with Cecile Watson. Patient is c/o wheezing and is requesting something for cough. 08/23/2023 He was recently admitted to [facility] for acute on chronic HFrEF exacerbation and [...] Atrial fibrillation (CMS/HCC) Chronic obstructive lung disease ([facility]/HCC) Chronic systolic congestive heart failure (CMS/HCC) Conduction disorder of the heart Atherosclerosis of [place] coronary artery of [place] heart without angina pectoris Type 2 diabetes [...] Abdominal tenderness Acute on chronic respiratory failure ([facility]/HCC) Benign prostatic hyperplasia with urinary obstruction Cardiomyopathy, [...] with fat layer exposed (CMS/HCC) Diabetes mellitus ([facility]/HCC) Essential hypertension History of amputation of left great toe ([facility]/HCC) History of amputation of lesser toe of left foot ([facility]/HCC) 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 Iron deficiency anemia Hyperglycemia due to type 2 diabetes mellitus ([facility]/HCC) Past Medical History: Diagnosis Date Anxiety Atrial fibrillation ([facility]/HCC) Cardiomyopathy ([facility]/HCC) CHF (congestive heart failure) ([facility]/HCC) Chronic kidney disease COPD (chronic obstructive pulmonary disease) ([facility]/HCC) Coronary artery disease Diabetes mellitus ([facility]/HCC) High cholesterol Hyperlipidemia Hypertension Family History Problem [...] (5' 9 ) Wt (more content not included)...[facility]10-05-2023 Evaluation note* Encounter Date Diagnosis Assessment Notes Treatment Notes Treatment Clinical Notes Aug, Facet arthritis of lumbar region (ICD-10 - M46.96) [employer] Other 09-27-2023 NoteCurrently stable*[facility]09-27-2023 NoteSending for labs today and pt to f/U with Dr Orr as scheduledUnOhio [facility]09-27-2023 NoteNYHC- III Continue GDMT- ASA, lipitor, coreg, [...] bmp and BNP F/U with nephrology as scheduledUnOhio [facility]09-27-2023 NoteContinue Coreg- currently stable and no concerning symptomsUnOhio State [facility]09-27-2023 NoteUTP CARDIOLOGY PROGRESS NOTE HPI: Adwoa Porter [...] states he has upcoming appt with Dr Kadir - nephrology soon. Denied fever, chills or recent illness. Patient here for follow up lasix increase. Dr. Stout increased it to 140mg bid a few days ago. He has taken 3 doses of this so far and feels so much better. He is unable to afford Farxiga. He was admitted to [facility] last week for hemoptysis. This has subsided. [...] reviewed and are negative. Recent eval in [facility] ED 07/31/23 Visit Vitals BP 121/79 (BP [...] with lunch, and with evening meal. HYDROcodone-acetaminophen ([place]) 5-325 mg tablet Take 1 tablet by [...] Pulmonary: Effort: Pulmonary effo (more content not included)...[facility]09-27-2023 NotePatient here for follow up lasix increase. Dr. Stout increased it to 140mg bid a few days ago. He has taken 3 doses of this so far and feels so much better. He is unable to afford Farxiga. He was admitted to [facility] last week for hemoptysis. This has subsided. [...] weakness. 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 failure w/hypoxia, acute on systolic chronic HF Medical History [facility]- r ight great toe bleeding (not stopping) Medical History pneumonia-[facility] 06-[address] [facility]-7-2023 Surgical History Cardiac catherization (07/2010) Surgical History AICD insertion (11/2010) Surgical History right sided heart cath - [place] 10/2013 Surgical History appendectomy Surgical History rt [...] Hospitalization History rt. heart cath Rex Stout- [facility] 05/11/16 Hospitalization History Water retention/ [facility] 02/2017 Hospitalization History Observation-[facility] 11/2017 Hospitalization History INFECTION IN LEFT SMALL TOE AND FOOT 11/2018 Hospitalization History [facility] -- ICU -- COPD, SMAL L WOUND ON LEFT FOOT 12/2019 Hospitalization History COPD [facility] [place] 12/2019 Hospitalization History Ankle wound 01/2020 Hospitalization History COVID 11/2020 Hospitalization History A-FIB, CHF, KIDNEY ISSUE S 03/2021 Hospitalization History [facility] 01/2023 Hospitalization History [facility] discha rged 03-27-2023 Hospitalization History [facility] x2 7-2 023 [employer] Other 09-08-2023 Evaluation note* Encounter Date Diagnosis Assessment Notes Treatment Notes Treatment Clinical Notes Jul, Acute cough (ICD-10 - R05.1) [employer] Other 09-08-2023 History general Narrative - Reported* [...] Medical History [facility] Medical History 04/28/2022 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 failure w/hypoxia, acute on systolic chronic HF Medical History [facility]- r ight great toe bleeding (not stopping) Medical History pneumonia-[facility] 06-[address] [facility]-7-2023 Surgical History Cardiac catherization (07/2010) Surgical History AICD insertion (11/2010) Surgical History right sided heart cath - [place] 10/2013 Surgical History appendectomy Surgical History rt [...] Hospitalization History rt. heart cath Rex Stout- [facility] 05/11/16 Hospitalization History Water retention/ [facility] 02/2017 Hospitalization History Observation-[facility] 11/2017 Hospitalization History INFECTION IN LEFT SMALL TOE AND FOOT 11/2018 Hospitalization History [facility] -- ICU -- COPD, SMAL L WOUND ON LEFT FOOT 12/2019 Hospitalization History COPD [facility] [place] 12/2019 Hospitalization History Ankle wound 01/2020 Hospitalization History COVID 11/2020 Hospitalization History A-FIB, CHF, KIDNEY ISSUE S 03/2021 Hospitalization History [facility] 01/2023 Hospitalization History [facility] discha rged 03-27-2023 Hospitalization History [facility] x2 7-2 023 [employer] Other 09-01-2023 Evaluation note* Encounter Date Diagnosis Assessment Notes Treatment Notes Treatment Clinical Notes Jul, Facet arthritis of lumbar region (ICD-10 - M46.96) [employer] Other 09-01-2023 History general Narrative - Reported* [...] Medical History V[facility]IGO Medical History 04/28/2022 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 failure w/hypoxia, acute on systolic chronic HF Medical History [facility]- r ight great toe bleeding (not stopping) Medical History pneumonia-[facility] 06-[address] [facility]-7-2023 Surgical History Cardiac catherization (07/2010) Surgical History AICD insertion (11/2010) Surgical History right sided heart cath - [place] 10/2013 Surgical History appendectomy Surgical History rt heart cath 6/23/16 Surgical History pacemaker 07/2016 Surgical History SKIN [...] Hospitalization History rt. heart cath Rex Stout- [facility] 05/11/16 Hospitalization History Water retention/ [facility] 02/2017 Hospitalization History Observation-[facility] 11/2017 Hospitalization History INFECTION IN LEFT SMALL TOE AND FOOT 11/2018 Hospitalization History [facility] -- ICU -- COPD, SMAL L WOUND ON LEFT FOOT 12/2019 Hospitalization History COPD [facility] [place] 12/2019 Hospitalization History Ankle wound 01/2020 Hospitalization History COVID 11/2020 Hospitalization History A-FIB, CHF, KIDNEY ISSUE S 03/2021 Hospitalization History [facility] 01/2023 Hospitalization History [facility] discha rged 03-27-2023 Hospitalization History [facility] x2 7-2 023 [employer] Other 08-31-2023 Evaluation note* Encounter Date Diagnosis Assessment Notes Treatment Notes Treatment Clinical Notes Jun, Chronic systolic congestive heart failure (ICD-10 - I50.22) [employer] Other 08-24-2023 History general Narrative - Reported* [...] Medical History V[facility]IGO Medical History 04/28/2022 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 failure w/hypoxia, acute on systolic chronic HF Medical History [facility]- r ight great toe bleeding (not stopping) Medical History pneumonia-[facility] 06-[address] [facility]-7-2023 Surgical History Cardiac catherization (07/2010) Surgical History AICD insertion (11/2010) Surgical History right sided heart cath - [place] 10/2013 Surgical History appendectomy Surgical History rt heart cath 05/11/16 Surgical History pacemaker 07/2016 Surgical History SKIN GRAFT-FROM LEFT LEG TO LEF T FOOT 10/2018 Surgical History LEFT SMALL TOE AMPUTATION WITH SOME FOOT BONE 11/2018 Surgical History COLONOSCOPY AND EGD [facility] Surgical History amputation left fifth toe Surgical History Ankle I/D LEFT 01/2020 Surgical History Left heel skin graft 03/29/2020 Surgical History SKIN GRAFT TO LEFT FOOT 03/2020 Surgical History CATARACT REMOVED ON RIGHT EYE Surgical History CATARACT REMOVED FROM LEFT EYE 06/2021 Hospitalization History see surgical hx Hospitalization History rt. heart cath Rex Stout- [facility] 05/11/16 Hospitalization History [facility] [facility]2017 Hospitalization History [facility] 11/2017 Hospitalization History INFECTION IN LEFT SMALL TOE AND FOOT 11/2018 Hospitalization History [facility] -- ICU -- COPD, SMAL L WOUND ON LEFT FOOT 12/2019 Hospitalization History COPD [facility] [place] 12/2019 Hospitalization History Ankle wound 01/2020 Hospitalization History COVID 11/2020 Hospitalization History A-FIB, CHF, KIDNEY ISSUE S 03/2021 Hospitalization History [facility] 01/2023 Hospitalization History [facility] discha rged 03-27-2023 Hospitalization History [facility] [phone] [employer] Other 08-11-2023 Evaluation note* Encounter Date Diagnosis [...] of this is related to diabetic neuropathy [employer] Other 08-11-2023 Evaluation note* Encounter Date Diagnosis [...] not treat breakfast due to concern for lowlucas at end of appointment 256. 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 failure w/hypoxia, acute on systolic chronic HF Medical History [facility]- r ight great toe bleeding (not stopping) Medical History pneumonia-[facility] 06-[address] [facility]-7-2023 Surgical History Cardiac catherization (07/2010) Surgical History AICD insertion (11/2010) Surgical History right sided heart cath - [place] 10/2013 Surgical History appendectomy Surgical History rt [...] Hospitalization History rt. heart cath [facility] Stout- [facility] 05/11/16 Hospitalization History Water retention/ [facility] 02/2017 Hospitalization History [facility] 11/2017 Hospitalization History INFECTION IN LEFT SMALL TOE AND FOOT 11/2018 Hospitalization History [facility] -- ICU -- COPD, SMAL L WOUND ON LEFT FOOT 12/2019 Hospitalization History COPD [facility] [place] 12/2019 Hospitalization History Ankle wound 01/2020 Hospitalization History COVID 11/2020 Hospitalization History A-FIB, CHF, KIDNEY ISSUE S 03/2021 Hospitalization History [facility] 01/2023 Hospitalization History [facility] discha rged 03-27-2023 Hospitalization History [facility] x2 [phone] [employer] Other 07-31-2023 Evaluation note* Encounter Date Diagnosis [...] not be able to stay at home [employer] Other 07-31-2023 History general Narrative - Reported* [...] Medical History [facility] Medical History 04/28/2022 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 failure w/hypoxia, acute on systolic chronic HF Medical History [facility]- r ight great toe bleeding (not [...] Hospitalization History rt. heart cath Rex Stout- [facility] 05/11/16 Hospitalization History Water retention/ [facility] 02/2017 Hospitalization History [facility] 11/2017 Hospitalization History INFECTION IN LEFT SMALL TOE AND FOOT 11/2018 Hospitalization History [facility] -- ICU -- COPD, SMAL L WOUND ON LEFT FOOT 12/2019 Hospitalization History COPD [facility] [place] 12/2019 Hospitalization History Ankle wound 01/2020 Hospitalization History COVID 11/2020 Hospitalization History A-FIB, CHF, KIDNEY ISSUE S 03/2021 Hospitalization History [facility] 01/2023 Hospitalization History [facility] discha rged 03-27-2023 [employer] Other 07-18-2023 Note[facility] Cardiology - [facility] Subjective Adwoa Porter is a 67 y.o. year old male patient being seen for Follow-up Patient Active Problem List Diagnosis Anxiety state Atrial fibrillation (CMS/HCC) Chronic obstructive lung disease (CMS/HCC) Chronic systolic congestive heart failure (CMS/HCC) Conduction disorder of the heart Atherosclerosis of [place] coronary artery of [place] heart without angina pectoris Type 2 diabetes [...] Type 2 diabetes mellitus without complication (CMS/HCC) Family History Problem Relation Name Age of Onset Diabetes Mother Hypertension Mother Coronary artery disease Mother Social History Tobacco Use Smoking status: Every Day Types: Cigarettes Passive exposure: Never Smokeless tobacco: Never Vaping Use Vaping Use: Never used Substance Use Topics Alcohol use: Never Drug use: Not Currently HPI Adwoa is seen in follow-up after recent admission to the [facility] with decompensated heart failure. He underwent [...] is significant for coronary artery disease with CREDIT OFFICER of the RCA and mild to moderate [...] with us he was admitted to the [facility] twice with decompensated heart failure. 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 failure w/hypoxia, acute on systolic chronic HF Medical History [facility]- r ight great toe bleeding (not [...] Hospitalization History rt. heart cath Rex Stout- [facility] 05/11/16 Hospitalization History Water retention/ [facility] 02/2017 Hospitalization History [facility] 11/2017 Hospitalization History INFECTION IN LEFT SMALL TOE AND FOOT 11/2018 Hospitalization History [facility] -- ICU -- COPD, SMAL L WOUND ON LEFT FOOT 12/2019 Hospitalization History COPD [facility] [place] 12/2019 Hospitalization History Ankle wound 01/2020 Hospitalization History COVID 11/2020 Hospitalization History A-FIB, CHF, KIDNEY ISSUE S 03/2021 Hospitalization History [facility] 01/2023 Hospitalization History [facility] discha rged 03-27-2023 [employer] Other 2023 History general Narrative - Reported* [...] Medical History [facility] Medical History 04/28/2022 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 failure w/hypoxia, acute on systolic chronic HF Medical History [facility]- r ight great toe bleeding (not [...] Hospitalization History rt. heart cath Rex Stout- [facility] 05/11/16 Hospitalization History Water retention/ [facility] 02/2017 Hospitalization History [facility] 11/2017 Hospitalization History INFECTION IN LEFT SMALL TOE AND FOOT 11/2018 Hospitalization History [facility] -- ICU -- COPD, SMAL L WOUND ON LEFT FOOT 12/2019 Hospitalization History COPD [facility] [place] 12/2019 Hospitalization History Ankle wound 01/2020 Hospitalization History COVID 11/2020 Hospitalization History A-FIB, CHF, KIDNEY ISSUE S 03/2021 Hospitalization History [facility] 01/2023 Hospitalization History [facility] discha rged 03-27-2023 [employer] Other 06-14-2023 Evaluation note* Encounter Date Diagnosis [...] sensors on. He was given 6 grif oracle sql developer to assist him with wearing the device. 45 minutes were spent evaluating the patient's report and discussing its findings with the patient by Shaw Rondon RN, [facility][NOTE 3]. [facility] [employer] Other 06-01-2023 Evaluation note* Encounter Date Diagnosis [...] leukocytosis and currently follows with a hematology. [employer] Other 06-01-2023 Evaluation note* Encounter Date Diagnosis [...] understanding and is agreeable with treatment plan. 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 failure w/hypoxia, acute on systolic chronic HF Surgical History Cardiac catherization (07/2010) Surgical History AICD insertion (11/2010) Surgical History right sided heart cath - [place] 10/2013 Surgical History appendectomy Surgical History rt [...] Hospitalization History rt. heart cath Rex Stout- [facility] 05/11/16 Hospitalization History Water retention/ [facility] 02/2017 Hospitalization History [facility] 11/2017 Hospitalization History INFECTION IN LEFT SMALL TOE AND FOOT 11/2018 Hospitalization History [facility] -- ICU -- COPD, SMAL L WOUND ON LEFT FOOT 12/2019 Hospitalization History COPD [facility] [place] 12/2019 Hospitalization History Ankle wound 01/2020 Hospitalization History COVID 11/2020 Hospitalization History A-FIB, CHF, KIDNEY ISSUE S 03/2021 Hospitalization History [facility] 01/2023 [employer] Other 05-03-2023 NoteCardiology Clinic Note Subjective Adwoa [...] Conduction disorder of the heart Atherosclerosis of [place] coronary artery of [place] heart without angina pectoris Type 2 diabetes [...] in follow-up after recent admission to the [facility] with decompensated heart failure. He underwent [...] is significant for coronary artery disease with CREDIT OFFICER of the RCA and mild to moderate [...] Rfl: 3 cholecalciferol (Vitamin D-3) 50 MCG (1999 UT) tablet, Take 2,000 Units by mouth in the morning., Disp: , Rfl: cyanocobalamin (Vitamin B-12) 1,000 mcg tablet, Take 1 tablet by mouth in the morning., Disp: , Rfl: dapagliflozin (Farxiga) 10 mg, Take 1 tablet (10 mg) by mouth once daily as directed., Disp: 90 tablet, Rfl: 2 digoxin (more content not included)...[facility] 03-21-2023 NotePatient here for 6 week [...] weakness. 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, COPD excacerbation [facility] Medical History 04/28/2022-Sepsis sec ./ Para influenza PNA multifocal-[facility] Medical History 05/08/2022-Increasing shortness of breath [...] BONE 11/2018 Surgical History COLONOSCOPY AND EGD [facility] Surgical History amputation left fifth toe Surgical History Ankle I/D LEFT 01/2020 Surgical History Left heel skin graft 03/29/2020 Surgical History SKIN GRAFT TO LEFT FOOT 03/2020 Surgical History CATARACT REMOVED ON RIGHT EYE Surgical History CATARACT REMOVED FROM LEFT EYE 06/2021 Hospitalization History see surgical hx Hospitalization History rt. heart cath Rex Stout- [facility] 05/11/16 Hospitalization History Water retention/ [facility] 02/2017 Hospitalization History [facility] 11/2017 Hospitalization History INFECTION IN LEFT SMALL TOE AND FOOT 11/2018 Hospitalization History [facility] -- ICU -- COPD, SMAL L WOUND ON LEFT FOOT 12/2019 Hospitalization History COPD [facility] [place] 12/2019 Hospitalization History Ankle wound 01/2020 Hospitalization History COVID 11/2020 Hospitalization History A-FIB, CHF, KIDNEY ISSUE S 03/2021 Hospitalization History [facility] 01/2023 [employer] Other 05-01-2023 Evaluation note* Encounter Date Diagnosis Assessment Notes Treatment Notes Treatment Clinical Notes March, Facet arthritis of lumbar region (ICD-10 - M46.96) [employer] Other 05-01-2023 History general Narrative - Reported* [...] Medical History [facility] Medical History 04/28/2022 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 failure w/hypoxia, acute on systolic chronic HF Surgical History Cardiac catherization (07/2010) Surgical History AICD insertion (11/2010) Surgical History right sided heart cath - [place] 10/2013 Surgical History appendectomy Surgical History rt [...] Hospitalization History rt. heart cath Rex Stout- [facility] 05/11/16 Hospitalization History Water retention/ [facility] 02/2017 Hospitalization History [facility] 11/2017 Hospitalization History INFECTION IN LEFT SMALL TOE AND FOOT 11/2018 Hospitalization History [facility] -- ICU -- COPD, SMAL L WOUND ON LEFT FOOT 12/2019 Hospitalization History COPD [facility] [place] 12/2019 Hospitalization History Ankle wound 01/2020 Hospitalization History COVID 11/2020 Hospitalization History A-FIB, CHF, KIDNEY ISSUE S 03/2021 Hospitalization History [facility] 01/2023 [employer] Other 04-12-2023 History general Narrative - Reported* [...] Medical History [facility] Medical History 04/28/2022 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 heart cath Rex Stout- [facility] 05/11/16 Hospitalization History Water retention/ [facility] 02/2017 Hospitalization History [facility] 11/2017 Hospitalization History INFECTION IN LEFT SMALL TOE AND FOOT 11/2018 Hospitalization History [facility] -- ICU -- COPD, SMAL L WOUND ON LEFT FOOT 12/2019 Hospitalization History COPD [facility] [place] 12/2019 Hospitalization History Ankle wound 01/2020 Hospitalization History COVID 11/2020 Hospitalization History A-FIB, CHF, KIDNEY ISSUE S 03/2021 Hospitalization History [facility] 01/2023 [employer] Other 04-11-2023 History general Narrative - Reported* [...] Medical History [facility] Medical History 04/28/2022 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 heart cath Rex Stout- [facility] 05/11/16 Hospitalization History Water retention/ [facility] 02/2017 Hospitalization History [facility] 11/2017 Hospitalization History INFECTION IN LEFT SMALL TOE AND FOOT 11/2018 Hospitalization History [facility] -- ICU -- COPD, SMAL L WOUND ON LEFT FOOT 12/2019 Hospitalization History COPD [facility] [place] 12/2019 Hospitalization History Ankle wound 01/2020 Hospitalization History COVID 11/2020 Hospitalization History A-FIB, CHF, KIDNEY ISSUE S 03/2021 Hospitalization History [facility] 01/2023 [employer] Other 04-05-2023 Evaluation note* Encounter Date Diagnosis [...] - N18.30) Feb, Hypokalemia (ICD-10 - E87.6) [employer] Other 03-24-2023 Evaluation note* Encounter Date Diagnosis [...] failure so a printed prescription was provided [employer] Other 03-13-2023 Note[facility] Cardiology - [facility] Subjective Adwoa Porter is a 67 y.o. year old male patient being seen for follow up [facility] for CHF. He is down 30# since last office visit on 01/05/2023. He is feeling much better since discharge. He is now taking metolazone once a week. Bumex was switched to furosemide. Patient Active Problem List Diagnosis Anxiety state Atrial fibrillation (CMS/HCC) Chronic obstructive lung disease (CMS/HCC) Chronic systolic congestive heart failure (CMS/HCC) Conduction disorder of the heart Atherosclerosis of [place] coronary artery of [place] heart without angina pectoris Type 2 diabetes mellitus with diabetic peripheral angiopathy without gangrene, with long-term current use of insulin ([facility]/HCC) Dyspnea Mixed hyperlipidemia Implantable cardioverter-defibrillator (ICD) in [...] in follow-up after recent admission to the [facility] with decompensated heart failure. He underwent [...] is significant for coronary artery disease with CREDIT OFFICER of the RCA and mild to moderate [...] Reactions Gabriela Inhibitors Medicatio (more content not included)...[facility] 01-17-2023 Evaluation note* Encounter Date Diagnosis [...] - M46.96) Continue current medication, OARRS reviewed [employer] Other 02-28-2023 Evaluation note* Encounter Date Diagnosis Assessment Notes Treatment Notes Treatment Clinical Notes Dec, Lumbar and sacral arthritis (ICD-10 - M48.9) [employer] Other 02-24-2023 History general Narrative - Reported* [...] Medical History [facility] Medical History 04/28/2022 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 heart cath Rex Stout- [facility] 05/11/16 Hospitalization History Water retention/ [facility] 02/2017 Hospitalization History [facility] 11/2017 Hospitalization History INFECTION IN LEFT SMALL TOE AND FOOT 11/2018 Hospitalization History [facility] -- ICU -- COPD, SMAL L WOUND ON LEFT FOOT 12/2019 Hospitalization History COPD [facility] [place] 12/2019 Hospitalization History Ankle wound 01/2020 Hospitalization History COVID 11/2020 Hospitalization History A-FIB, CHF, KIDNEY ISSUE S 03/2021 [employer] Other 02-23-2023 History general Narrative - Reported* [...] Medical History [facility] Medical History 04/28/2022 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, COPD excacerbation [facility] Medical History 04/28/2022-Sepsis sec ./ Para influenza PNA multifocal-[facility] Medical History 05/08/2022-Increasing shortness of breath [...] BONE 11/2018 Surgical History COLONOSCOPY AND EGD [facility] Surgical History amputation left fifth toe Surgical History Ankle I/D LEFT 01/2020 Surgical History Left heel skin graft 03/29/2020 Surgical History SKIN GRAFT TO LEFT FOOT 03/2020 Surgical History CATARACT REMOVED ON RIGHT EYE Surgical History CATARACT REMOVED FROM LEFT EYE 06/2021 Hospitalization History see surgical hx Hospitalization History rt. heart cath Rex Stout- [facility] 05/11/16 Hospitalization History Water retention/ [facility] 02/2017 Hospitalization History [facility] 11/2017 Hospitalization History INFECTION IN LEFT SMALL TOE AND FOOT 11/2018 Hospitalization History [facility] -- ICU -- COPD, SMAL L WOUND ON LEFT FOOT 12/2019 Hospitalization History COPD [facility] [place] 12/2019 Hospitalization History Ankle wound 01/2020 Hospitalization History COVID 11/2020 Hospitalization History A-FIB, CHF, KIDNEY ISSUE S 03/2021 [employer] Other 02-18-2023 History general Narrative - Reported* [...] Medical History [facility] Medical History 04/28/2022 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 heart cath Rex Stout- [facility] 05/11/16 Hospitalization History Water retention/ [facility] 02/2017 Hospitalization History [facility] 11/2017 Hospitalization History INFECTION IN LEFT SMALL TOE AND FOOT 11/2018 Hospitalization History [facility] -- ICU -- COPD, SMAL L WOUND ON LEFT FOOT 12/2019 Hospitalization History COPD [facility] [place] 12/2019 Hospitalization History Ankle wound 01/2020 Hospitalization History COVID 11/2020 Hospitalization History A-FIB, CHF, KIDNEY ISSUE S 03/2021 [employer] Other 02-13-2023 History general Narrative - Reported* Type Description [...] Medical History [facility] Medical History 04/28/2022 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 heart cath Rex Stout- [facility] 05/11/16 Hospitalization History Water retention/ [facility] 02/2017 Hospitalization History [facility] 11/2017 Hospitalization History INFECTION IN LEFT SMALL TOE AND FOOT 11/2018 Hospitalization History [facility] -- ICU -- COPD, SMAL L WOUND ON LEFT FOOT 12/2019 Hospitalization History COPD [facility] [place] 12/2019 Hospitalization History Ankle wound 01/2020 Hospitalization History COVID 11/2020 Hospitalization History A-FIB, CHF, KIDNEY ISSUE S 03/2021 [employer] Other 02-12-2023 History general Narrative - Reported* [...] Medical History [facility] Medical History 04/28/2022 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 heart cath Rex Stout- [facility] 05/11/16 [facility] [facility] 11/2017 Hospitalization History INFECTION IN LEFT SMALL TOE AND FOOT 11/2018 Hospitalization History [facility] -- ICU -- COPD, SMAL L WOUND ON LEFT FOOT 12/2019 Hospitalization History COPD [facility] [place] 12/2019 Hospitalization History Ankle wound 01/2020 Hospitalization History COVID 11/2020 Hospitalization History A-FIB, CHF, KIDNEY ISSUE S 03/2021 [facility] Other 01-24-2023 Evaluation note* Encounter Date Diagnosis Assessment Notes [...] findings with him by Shaw Rondon RN, [facility][NOTE 3]. [facility] Junko Tada Other 01-23-2023 Reason for referral (narrative)* Reason 12/11/22 @ Irvin gonzalez to [facility] per patient request Diagnosis 1 COPD (chronic obstru ctive pulmonary disease) (J44.9) Diagnosis 2 Athscl heart disease of [place] coronary artery w/o ang pctrs (I25.10) Diagnosis 3 Unspecified systolic (congestive) heart failure (I50.20) Referral Organization [facility] Mara Hodges Referring Provider First Name Vinnie Referring Provider Last Name Terry Referring Provider [facility] Referred Organization [facility] Referred Address [address] [place], [place],[address] Referred Provider Specialty Hospice and Palliative Medicine Referral Priority Routine Referral Appointment Date 2022-12-11 General Notes Doris Modi 09:13:40 AM >referral received and faxed. appt scheduled for 11:00am today. Doris Modi 12/13/2022 12:20:16 PM >faxed letter to obtain consult note Doris Modi 12/14/2022 07:21:24 AM >received VM from marilu at [facility], she stated they saw pt, however; he told them he was not ready for comfort care and therefore did not sign on with hospice. Closing referral [facility] Other 12-27-2022 Evaluation note* Encounter Date Diagnosis Assessment Notes Treatment Notes Treatment Clinical Notes Oct, Lumbar and sacral arthritis (ICD-10 - M48.9) [facility] Other 12-20-2022 Evaluation note* Encounter Date Diagnosis [...] with diabetic education in 4 weeks and me with 8 weeks to assure mitigation of [...] (ICD-10 - I10) f/u with pcp Oct, journalist 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 failure w/hypoxia, acute on systolic chronic HF Surgical History Cardiac catherization (07/2010) Surgical History AICD insertion (11/2010) Surgical History right sided heart cath - [place] 10/2013 Surgical History appendectomy Surgical History rt [...] Hospitalization History rt. heart cath [facility] Stout- [facility] 05/11/16 Hospitalization History Water retention/ [facility] 02/2017 Hospitalization History [facility] 11/2017 Hospitalization History INFECTION IN LEFT SMALL TOE AND FOOT 11/2018 Hospitalization History [facility] -- ICU -- COPD, SMAL L WOUND ON LEFT FOOT 12/2019 Hospitalization History COPD [facility] [place] 12/2019 Hospitalization History Ankle wound 01/2020 Hospitalization History COVID 11/2020 Hospitalization History A-FIB, CHF, KIDNEY ISSUE S 03/2021 [facility] Other 11-10-2022 Evaluation note* Encounter Date Diagnosis [...] the goal and has adequate [employer] stores [employer] Other 11-10-2022 Evaluation note* Encounter Date Diagnosis [...] do not pop blisters. 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 S/sx of infection reviewed, if occur follow up right away with PCP, UC or ER. 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 heart cath [facility] Stout- [facility] 05/11/16 Hospitalization History Water retention/ [facility] 02/2017 Hospitalization History [facility] 11/2017 Hospitalization History INFECTION IN LEFT SMALL TOE AND FOOT 11/2018 Hospitalization History [facility] -- ICU -- COPD, SMAL L WOUND ON LEFT FOOT 12/2019 Hospitalization History COPD [facility] [place] 12/2019 Hospitalization History Ankle wound 01/2020 Hospitalization History COVID 11/2020 Hospitalization History A-FIB, CHF, KIDNEY ISSUE S 03/2021 [facility] Other 10-26-2022 Evaluation note* Encounter Date Diagnosis [...] any worsening erythema, or with other concerns. 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 heart cath Rex Stout- [facility] 05/11/16 Hospitalization History Water retention/ [facility] 02/2017 Hospitalization History [facility] 11/2017 Hospitalization History INFECTION IN LEFT SMALL TOE AND FOOT 11/2018 Hospitalization History [facility] -- ICU -- COPD, SMAL L WOUND ON LEFT FOOT 12/2019 Hospitalization History COPD [facility] [place] 12/2019 Hospitalization History Ankle wound 01/2020 Hospitalization History COVID 11/2020 Hospitalization History A-FIB, CHF, KIDNEY ISSUE S 03/2021 [facility] Other 10-21-2022 Evaluation note* Encounter Date Diagnosis Assessment Notes Treatment Notes Treatment Clinical Notes Aug, Lumbar and sacral arthritis (ICD-10 - M48.9) [facility] Other 10-03-2022 History general Narrative - Reported* [...] Hospitalization History rt. heart cath Rex Stout- [facility] 05/11/16 Hospitalization History Water retention/ [facility] 02/2017 Hospitalization History [facility] 11/2017 Hospitalization History INFECTION IN LEFT SMALL TOE AND FOOT 11/2018 Hospitalization History [facility] -- ICU -- COPD, SMAL L WOUND ON LEFT FOOT 12/2019 Hospitalization History COPD [facility] [place] 12/2019 Hospitalization History Ankle wound 01/2020 Hospitalization History COVID 11/2020 Hospitalization History A-FIB, CHF, KIDNEY ISSUE S 03/2021 [facility] Other 09-12-2022 Evaluation note* Encounter Date Diagnosis [...] (ICD-10 - I10) f/u with pcp Jul, journalist current use of insulin (ICD-10 - Z79.4) [...] BENEFIT FROM LIBRE2 with alarms, ordered thru [employer]. discussion and merck handout on hypoglycemia and treament. [facility] Other 08-04-2022 History general Narrative - Reported* [...] Hospitalization History rt. heart cath Rex Stout- [facility] 05/11/16 Hospitalization History Water retention/ [facility] 02/2017 Hospitalization History [facility] 11/2017 Hospitalization History INFECTION IN LEFT SMALL TOE AND FOOT 11/2018 Hospitalization History [facility] -- ICU -- COPD, SMAL L WOUND ON LEFT FOOT 12/2019 Hospitalization History COPD [facility] [place] 12/2019 Hospitalization History Ankle wound 01/2020 Hospitalization History COVID 11/2020 Hospitalization History A-FIB, CHF, KIDNEY ISSUE S 03/2021 [facility] Other 08-02-2022 Evaluation note* Encounter Date Diagnosis Assessment Notes Treatment Notes Treatment Clinical Notes Jun, Community acquired pneumonia, unspecified laterality (ICD-10 - J18.9) He will complete the antibiotics and call with any worsening symptoms. I also advised him to call with any worsening diarrhea Jun, COPD (chronic obstructive pulmonary disease) (ICD-10 - J44.9) [facility] Other 08-02-2022 History general Narrative - Reported* [...] Hospitalization History rt. heart cath Rex Stout- [facility] 05/11/16 Hospitalization History Water retention/ [facility] 02/2017 Hospitalization History [facility] 11/2017 Hospitalization History INFECTION IN LEFT SMALL TOE AND FOOT 11/2018 Hospitalization History [facility] -- ICU -- COPD, SMAL L WOUND ON LEFT FOOT 12/2019 Hospitalization History COPD [facility] [place] 12/2019 Hospitalization History Ankle wound 01/2020 Hospitalization History COVID 11/2020 Hospitalization History A-FIB, CHF, KIDNEY ISSUE S 03/2021 [facility] Other 07-27-2022 Progress note Author Ethan Cummings [facility] June 13, 2022 10:16pm Note Date/Time June 06, 2022 11:[facility] [address] [address] Hem/Onc Follow Up Note - OP Signed Patient: Adwoa Porter MR#: [id number] : 1955 Acct:[id number] Age/Sex: 66 / M Type: REG RCR [...] hs BCR/ABL was negative. Recent hospitalization at [facility] for COVID PNA. He had also a [...] for coordination of care (as documented) and zkik-ui-vuyu counseling of patient and/or family. [facility] - Medical History Medical History: Medical History [...] 1152 Signed By: <Electronically signed by Ethan Cummings, II, DO> 06/13/22 6454 [facility] Work Phone: 1(289) 797-388206-28-2022 History general Narrative - Reported* Type Description [...] Hospitalization History rt. heart cath Rex Stout- [facility] 05/11/16 Hospitalization History Water retention/ [facility] 02/2017 Hospitalization History [facility] 11/2017 Hospitalization History INFECTION IN LEFT SMALL TOE AND FOOT 11/2018 Hospitalization History [facility] -- ICU -- COPD, SMAL L WOUND ON LEFT FOOT 12/2019 Hospitalization History COPD [facility] [place] 12/2019 Hospitalization History Ankle wound 01/2020 Hospitalization History COVID 11/2020 Hospitalization History A-FIB, CHF, KIDNEY ISSUE S 03/2021 [facility] Other 06-08-2022 Evaluation note* Encounter Date Diagnosis Assessment Notes Treatment Notes Treatment Clinical Notes Apr, Type 2 diabetes mellitus with hyperglycemia (ICD-10 - E11.65) [facility] Other 06-06-2022 Evaluation note* Encounter Date Diagnosis Assessment Notes Treatment Notes Treatment Clinical Notes Apr, Acute on chronic systolic congestive heart failure (ICD-10 - I50.23) [facility] Other 05-23-2022 Progress note Author Ethan Cummings [facility] April 10, 2022 3:31pm Note Date/Time April 10, 2022 2:42p m [facility] [place] [address] Hem/Onc Follow Up Note - OP Signed Patient: Adwoa Porter MR#: [id number] : 1955 Acct:[id number] Age/Sex: 66 / M Type: REG RCR [...] for coordination of care (as documented) and ikuj-qq-lmkj counseling of patient and/or family. [facility] - Medical History Medical History: Medical History [...] by Ethan Cummings II, DO> 04/10/22 1531 [facility] Work Phone: 1(124) 910-919604-29-2022 Evaluation note* Encounter Date Diagnosis Assessment Notes Treatment Notes Treatment Clinical Notes Feb, Facet arthritis of lumbar region (ICD-10 - M46.96) [facility] Other 04-14-2022 Evaluation note* Encounter Date Diagnosis [...] this wound he will follow-up with his performance improvement specialist [facility] Other 04-03-2022 Evaluation note* Encounter Date Diagnosis Assessment Notes Treatment Notes Treatment Clinical Notes Feb, Left foot pain (ICD-10 - M79.672) Contiune all home medicatons as prescribed. Follow up with your primary care physciain tomorrow for further testing. Go to the ER for worsening symptoms or concerns. [facility] Other 03-22-2022 Evaluation note* Encounter Date Diagnosis [...] overload caused by recurring apneas are controlled. [facility] Other 02-23-2022 Evaluation note* Encounter Date Diagnosis [...] (ICD-10 - I10) f/u with pcp Dec, prison current use of insulin (ICD-10 - Z79.4) [...] was counseling done by myself, Tyesha JUDD. 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 discussion and [employer] handout on hypoglycemia and treament. Oct, BMI 35.0-35.9,adult (ICD-10 - Z68.35) Oct, Other I have spent 30 minutes with this patient and over 50% of the visit was counseling done by myself, Tyesha JUDD. 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 Sep, BMI 35.0-35.9,adult (ICD-10 - Z68.35) Sep, Other I have spent 60 minutes with this patient and over 50% of the visit was counseling done by myself, Tyesha JUDD. transitioned to Ozempic from Trulicity for added weight loss benefit, increased glycemic control [facility] Other 11-08-2021 Evaluation note* Encounter Date Diagnosis [...] include pain management referral or physical therapy [facility] Other 05-31-2021 NoteMR#: [id number] [facility] Pt. Name: Adwoa Porter Admitted: 04/12/2021 Discharged: 04/17/2021 Date of : 1955 Physician: Balbir Stubbs MD DISCHARGE SUMMARY PRINCIPAL DISCHARGE DIAGNOSES: 1. Dylhl-xh-hrfebme heart failure with reduced ejection fraction. 2. [...] heart failure. The patient was transferred to [facility] on a bumetanide infusion. He was [...] If strongly occurs, follow up with his administrative clerk as soon as possible. 3. The patient was strongly encouraged to consider acute rehab, however, he declined and insisted on returning to home. Total time spent on discharge coordination 45 minutes. Electronically Signed by: Balbir Stubbs MD 04/27/2021 01:19 P Balbir Stubbs MD Date Dict: 04/17/2021/03:44 P/Balbir Stubbs MD Date Trans: 04/18/2021 12:53 A/mmo [id number] cc: Vinnie Stewart M.D. [facility] [address] [place] [address] Lowell Craft M.D. [facility] [address]Wzx[facility] CenterDis[facility] summary Author Yakov To [facility] February 15, 2023 2:13pm Note Date/Time February 15, 2023 2:1 3pm [facility] [address] [place] [address] Discharge Summary Signed Patient: Adwoa Porter MR#: [id number] : 1955 Acct:[id number] Age/Sex: 67 / M Adm Date: 3 Loc: Room: [address] [place] [address]: Yakov To DO Copies to: [...] blood sugars and low potassium by his administrative clerk. Upon arrival to the hospital his blood [...] [id number] Location: Determined by Patient Ordered By: Yaokv To Prothrombin Time INR (Routine) Timeframe: 2 [...] signed by Yakov To DO> 02/15/23 1413 [facility] Work Phone: Evaluation noteNo InformationN[employer] Other Evaluation note* Diagnosis Onset Date Resolution Status Leukocytosis acute [facility] Work Phone: Evaluation note* Diagnosis Onset Date Resolution Status Leukocytosis acute SHIRA (acute kidney injury) ac kotlik Cardiomyopathy acute Elevated serum creatinine ac kotlik Elevated troponin acute Hyperglycemia acute Hypokalemia acute Hyponatremia acute Metabolic alkalosis with respiratory acidosis acute CKD (chronic kidney disease) stage 3, GFR 30-59 ml/min chronic 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 February 13, 2023 9:35pm Note Date/Time February 13, 2023 9:2 3pm [facility] [address] [place] [address] Hospitalist H&P Signed Patient: Adwoa Porter MR#: [id number] : 1955 Acct:[id number] Age/Sex: 67 / M Adm Date: 3 Loc: Room: [address] [place] [address] Type: ADM IN Attending Dr: Yakov To [...] in the 500 range, he saw his administrative clerk today and because he knew his glucose [...] (Vitamin B-12) 1,000 mcg PO DAILY#30 tabs 07/19/22 [Rx Confirmed 02/13/23] ferrous sulfate 325 mg [...] % (Auto) 17.7 % (.) 02/13/23 16:49 Chase % (Auto) 8.0 % (.) 02/13/23 16:49 Eos % (Auto) 2.9 % (.) 02/13/23 16:49 Baso % (Auto) 0.6 % (.) 02/13/23 16:49 Nucleat RBC Rel Count 0.1 /100 WBC (0-0.5) 02/13/23 16:49 Neut # (Auto) 8.5 x10E3/uL (1.8-7.7) H 02/13/23 16:49 Lymph # (Auto) 2.1 x10E3/uL (1.00-4.8) 02/13/23 16:49 Chase # (Auto) 1.0 x10E3/uL (0.0-0.8) H 02/13/23 [...] pH 6.0 (5.0-9.0) 02/13/23 15:49 Ur Specific [place] 1.018 (1.001-1.030) 02/13/23 15:49 Urine Protein Negative [...] 02/13/232120 Signed By: <Electronically signed by Yakov To DO> 02/13/232134 [facility] Work Phone: History general Narrative - Reported* [...] Hospitalization History rt. heart cath Rex Stout- [facility] 05/11/16 Hospitalization History Water retention/ [facility] 02/2017 Hospitalization History [facility] 11/2017 Hospitalization History INFECTION IN LEFT SMALL TOE AND FOOT 11/2018 Hospitalization History [facility] -- ICU -- COPD, SMAL L WOUND ON LEFT FOOT 12/2019 Hospitalization History COPD [facility] [place] 12/2019 Hospitalization History Ankle wound 01/2020 Hospitalization History COVID 11/2020 Hospitalization History A-FIB, CHF, KIDNEY ISSUE S 03/2021 [employer] Other History general Narrative - Reported* Type [...] hx [facility] Water [facility]/ [facility] 02/2017 Hospitalization History [facility] 11/2017 Hospitalization History INFECTION IN LEFT SMALL TOE AND FOOT 11/2018 Hospitalization History [facility] -- ICU -- COPD, SMAL L WOUND ON LEFT FOOT 12/2019 Hospitalization History COPD [facility] [place] 12/2019 Hospitalization History Ankle wound 01/2020 Hospitalization History COVID 11/2020 Hospitalization History A-FIB, CHF, KIDNEY ISSUE S 03/2021 [facility] Other History general Narrative - Reported* Type [...] Medical History [facility] Medical History 04/28/2022 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 heart cath Rex Stout- [facility] 05/11/16 Hospitalization History Water retention/ [facility] 02/2017 Hospitalization History [facility] 11/2017 Hospitalization History INFECTION IN LEFT SMALL TOE AND FOOT 11/2018 Hospitalization History [facility] -- ICU -- COPD, SMAL L WOUND ON LEFT FOOT 12/2019 Hospitalization History COPD [facility] [place] 12/2019 Hospitalization History Ankle wound 01/2020 Hospitalization History COVID 11/2020 Hospitalization History A-FIB, CHF, KIDNEY ISSUE S 03/2021 [employer] Other History general Narrative - Reported* Type [...] Medical History VERTIGO Medical History 04/28/2022 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 failure w/hypoxia, acute on systolic chronic HF Surgical History Cardiac catherization (07/2010) Surgical History AICD insertion (11/2010) Surgical History right sided heart cath - [place] 10/2013 Surgical History appendectomy Surgical History rt [...] Hospitalization History rt. heart cath Rex Stout- [facility] 05/11/16 Hospitalization History Water retention/ [facility] 02/2017 Hospitalization History [facility] 11/2017 Hospitalization History INFECTION IN LEFT SMALL TOE AND FOOT 11/2018 Hospitalization History [facility] -- ICU -- COPD, SMAL L WOUND ON LEFT FOOT 12/2019 Hospitalization History COPD [facility] [place] 12/2019 Hospitalization History Ankle wound 01/2020 Hospitalization History COVID 11/2020 Hospitalization History A-FIB, CHF, KIDNEY ISSUE S 03/2021 Hospitalization History [facility] 01/2023 [employer] Other History general Narrative - Reported* Type [...] Medical History V[facility]IGO Medical History 04/28/2022 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 failure w/hypoxia, acute on systolic chronic HF Medical History [facility]- r ight great toe bleeding (not stopping) Surgical History Cardiac catherization (07/2010) Surgical History AICD insertion (11/2010) Surgical History right sided heart cath - [place] 10/2013 Surgical History appendectomy Surgical History rt [...] Hospitalization History rt. heart cath Rex Stout- [facility] 05/11/16 Hospitalization History Water retention/ [facility] 02/2017 Hospitalization History [facility] 11/2017 Hospitalization History INFECTION IN LEFT SMALL TOE AND FOOT 11/2018 Hospitalization History [facility] -- ICU -- COPD, SMAL L WOUND ON LEFT FOOT 12/2019 Hospitalization History COPD [facility] [place] 12/2019 Hospitalization History Ankle wound 01/2020 Hospitalization History COVID 11/2020 Hospitalization History A-FIB, CHF, KIDNEY ISSUE S 03/2021 Hospitalization History [facility] 01/2023 Hospitalization History [facility] discha rged 03-27-2023 [employer] Other History general Narrative - Reported* Type [...] Medical History VERTIGO Medical History 04/28/2022 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 failure w/hypoxia, acute on systolic chronic HF Medical History [facility]- r ight great toe bleeding (not stopping) Medical History pneumonia-[facility] 06-[address] [facility]-7-2023 Surgical History Cardiac catherization (07/2010) Surgical [...] Hospitalization History rt. heart cath [facility] Stout- [facility] 05/11/16 Hospitalization History Water retention/ [facility] 02/2017 Hospitalization History Observation-[facility] pital 11/2017 Hospitalization History INFECTION IN LEFT SMALL TOE AND FOOT 11/2018 Hospitalization History [facility] -- ICU -- COPD, SMAL L WOUND ON LEFT FOOT 12/2019 Hospitalization History COPD [facility] [place] 12/2019 Hospitalization History Ankle wound 01/2020 Hospitalization History COVID 11/2020 Hospitalization History A-FIB, CHF, KIDNEY ISSUE S 03/2021 Hospitalization History [facility] 01/2023 Hospitalization History [facility] discha rged 03-27-2023 Hospitalization History [facility] x2 7-2 023 [employer] Other History general Narrative - Reported* Type [...] Medical History [facility] Medical History 04/28/2022 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 failure w/hypoxia, acute on systolic chronic HF Medical History [facility]- r ight great toe bleeding (not stopping) Medical History pneumonia-[facility] 06-[address] [facility]-7-2023 Medical History [id number] Surgical History Cardiac catherization (07/2010) Surgical [...] hx [facility] Water [facility]/ [facility] 02/2017 Hospitalization History [facility] 11/2017 Hospitalization History INFECTION IN LEFT SMALL TOE AND FOOT 11/2018 Hospitalization History [facility] -- ICU -- COPD, SMAL L WOUND ON LEFT FOOT 12/2019 Hospitalization History COPD [facility] [place] 12/2019 Hospitalization History Ankle wound 01/2020 Hospitalization History COVID 11/2020 Hospitalization History A-FIB, CHF, KIDNEY ISSUE S 03/2021 Hospitalization History [facility] 01/2023 Hospitalization History [facility] discha rged 03-27-2023 Hospitalization History [facility] x2 7-2 023 Hospitalization History [facility] 10[facility]2 023 [employer] Other History general Narrative - Reported* Type [...] Medical History [facility] Medical History 04/28/2022 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 failure w/hypoxia, acute on systolic chronic HF Medical History [facility]- r ight great toe bleeding (not stopping) Medical History pneumonia-[facility] 06-[address] [facility]-7-2023 Medical History [id number] Surgical History Cardiac catherization (07/2010) Surgical History AICD insertion (11/2010) Surgical History right sided heart cath - [facility] 10/2013 Surgical History appendectomy Surgical History rt heart cath 05/11/16 Surgical History pacemaker 07/2016 Surgical History SKIN GRAFT-FROM LEFT LEG TO LEF T FOOT 10/2018 Surgical History LEFT SMALL TOE AMPUTATION WITH SOME FOOT BONE 11/2018 Surgical History COLONOSCOPY AND EGD [facility] Surgical History amputation left fifth toe Surgical History Ankle I/D LEFT 01/2020 Surgical History Left heel skin graft 03/29/2020 Surgical History SKIN GRAFT TO LEFT FOOT 03/2020 Surgical History CATARACT REMOVED ON RIGHT EYE Surgical History CATARACT REMOVED FROM LEFT EYE 06/2021 Hospitalization History see surgical hx Hospitalization History rt. heart cath [facility] Stout- [facility] 05/11/16 Hospitalization History Water retention/ [facility] 02/2017 Hospitalization History Observ[facility] 11/2017 Hospitalization History INFECTION IN LEFT SMALL TOE AND FOOT 11/2018 Hospitalization History [facility] -- ICU -- COPD, SMAL L WOUND ON LEFT FOOT 12/2019 Hospitalization History COPD [facility] [place] 12/2019 Hospitalization History Ankle wound 01/2020 Hospitalization History COVID 11/2020 Hospitalization History A-FIB, CHF, KIDNEY ISSUE S 03/2021 Hospitalization History [facility] 01/2023 Hospitalization History [facility] discha rged 03-27-2023 Hospitalization History [facility] x2 7-2 023 Hospitalization History [facility] 10-2 023 Hospitalization History [facility] rib fx left Hospitalization History [facility] -pnemo jennifer [employer] Other History general Narrative - Reported* Type [...] Medical History [facility] Medical History 04/28/2022 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 failure w/hypoxia, acute on systolic chronic HF Medical History [facility]- r ight great toe bleeding (not stopping) Medical History pneumonia-[facility] 06-[address] [facility]-7-2023 Medical History [id number] Medical History NON RESPONSIVE X 2 [...] Hospitalization History rt. heart cath [facility] Stout- [facility] 05/11/16 Hospitalization History Water retention/ [facility] 02/2017 Hospitalization History Observation-[facility] pital 11/2017 Hospitalization History INFECTION IN LEFT SMALL TOE AND FOOT 11/2018 Hospitalization History [facility] -- ICU -- COPD, SMAL L WOUND ON LEFT FOOT 12/2019 Hospitalization History COPD [facility] [place] 12/2019 Hospitalization History Ankle wound 01/2020 Hospitalization History COVID 11/2020 Hospitalization History A-FIB, CHF, KIDNEY ISSUE S 03/2021 Hospitalization History [facility] 01/2023 Hospitalization History [facility] discha rged 03-27-2023 Hospitalization History [facility] x2 7-2 023 Hospitalization History [facility] Hospitalization History [facility] rib fx left Hospitalization History [facility] -pnemo jennifer [employer] Other History general Narrative - Reported* Type [...] Medical History [facility] Medical History 04/28/2022 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 failure w/hypoxia, acute on systolic chronic HF Medical History [facility]- r ight great toe bleeding (not stopping) Medical History pneumonia-[facility] 06-[address] [facility]-7-2023 Medical History [id number][facility] Medical History NON RESPONSIVE X 2 IN THE LAST 6 WEEKS Surgical History Cardiac catherization (07/2010) Surgical History AICD insertion (11/2010) Surgical History right sided heart cath - [facility] 10/2013 Surgical History appendectomy Surgical History rt [...] Hospitalization History rt. heart cath [facility] St[facility]- [facility] 05/11/16 Hospitalization History Water retention/ [facility] 02/2017 Hospitalization History [facility] 11/2017 Hospitalization History INFECTION IN LEFT SMALL TOE AND FOOT 11/2018 Hospitalization History [facility] -- ICU -- COPD, SMAL L WOUND ON LEFT FOOT 12/2019 Hospitalization History COPD [facility] [place] 12/2019 Hospitalization History Ankle wound 01/2020 Hospitalization History COVID 11/2020 Hospitalization History A-FIB, CHF, KIDNEY ISSUE S 03/2021 Hospitalization History [facility] 01/2023 Hospitalization History [facility] discha rged 03-27-2023 Hospitalization History [facility] x2 7-2 023 Hospitalization History [facility] 10-2 023 Hospitalization History [facility] rib fx left Hospitalization History [facility] -pnemo jennifer [employer] Other progress note Author Ethan Cummings [facility] December 04, 2022 1:47pm Note Date/Time December 04, 2022 1 :44pm [facility] at [address] [address] Hem/Onc Follow Up Note - OP Signed Patient: Adwoa Porter MR#: [id number] : 1955 Acct:[id number] Age/Sex: 67 / M Type: REG RCR [...] hs BCR/ABL was negative. Recent hospitalization at [facility] for COVID PNA. He had also a [...] for coordination of care (as documented) and rcvf-gm-[id number] counseling of patient and/or family. [facility] - Medical History Medical History: Medical History [...] % (Auto) 67.1, Lymph % (Auto) 20.5, Chase % (Auto) 8.2, Eos % (Auto) 3.5, Baso % (Auto) 0.7, Nucleat RBC Rel Count 0.1, Neut # (Auto) 7.9 H, Lymph # (Auto) 2.4, Chase # (Auto) 1.0 H, Eos # (Auto) [...] dulaglutide 4.5 mg/0.5 mL subcutaneous pen injector ([facility]) See Rx Instructions .Route .COMPLEX 04/10/22 [History [...] by Ethan Cummings II, DO> 12/04/22 [address] [facility] Work Phone: Advance Directives No Advanced Directives Records Found Advance Directive Response Recorded Date/ Time Advance Directives No July 2:42pm Advance Directive Response Recorded Date/ Time Advance Directives No July 1:42pm Chief Complaint and Reason for Visit Chief Complaint Right great toe woun d Reason for Visit Cellulitis of left t oe Controlled type 2 diabetes mellitus with diabetic polyneuropathy [id number] Chief Complaint DM Obstructive sleep apnea Chief Complaint DM Leukocytosis Reason for Visit Leukocytosis Chief Complaint Leukocytosis DM sent by dyalisis Reason for Visit Leukocytosis SHIRA (acute kidney injury) Cardiomyopathy Elevated serum creatinine Elevated troponin Hyperglycemia Hypokalemia Hyponatremia Metabolic alkalosis with respiratory acidosis CKD (chronic kidney disease) stage 3, GFR 30-59 ml/min Obstructive sleep apnea Paroxysmal A-fib Chief Complaint Leukocytosis DM sent by [employer] E87.6 I48.0 Reason for Visit Leukocytosis SHIRA [...] diabetes m ellitus with diabetic polyneuropathy acute [id number] acute Family History No Family History Records [...] burn degree, initial encounter (T23.022A) Referral Organization [facility] Urgent Care [facility] [address] Referring Provider First Name Gisselle Referring Provider Last Name Noble Referring Provider Specialty Nurse Phan ruiz Referred Organization [facility] Referred Address [address] [facility],[place], [place],[address] Referred Provider Specialty Wound Care Referral Priority Routine General Notes Lennie Mcghee Ayo 022 12:46:37 PM >Received today and waiting for office notes to be locked before sending referral Lennie Mcghee 10/03/2022 03:00:03 PM >Referral was fax Clinical Notes Office [phone] Reason * FU 02/13 lumbar arthritis/pain - wants [place] or nadeen Diagnosis 1 Lumbar and sacral ar thritis (M48.9) Referral Organization [facility] Family Medicin e Tracie Referring Provider First Name Vinnie Referring Provider Last Name Terry Referring Provider Specialty Family Prac yamil Referred Organization [facility] Referred Address [address] [place], [place],[address] Referred Provider Specialty Pain Medicin e Referral Priority Routine General Notes Doris Modi 12:58:37 PM > referral received and faxed Additional Source Comments (unrecognized sect ion and content) No Status Records FoundNo Status Records FoundNo Status Records FoundNo Status Records FoundNo Status Records FoundNo Status Records FoundNo Status Records Found INFORMATION SOURCE (unrecogn ized section and content) DATE CREATED AUTHOR [facility] DATE CREATED AUTHOR AUTHOR'S ORGANIZ ATION 03/05/2022 [facility] DATE CREATED AUTHOR AUTHOR'S ORGANIZ ATION 04/27/2023 [facility] DATE CREATED AUTHOR AUTHOR'S ORGANIZ ATION 09/03/2023 [facility] DATE CREATED AUTHOR AUTHOR'S ORGANIZ ATION 12/23/2023 [facility] DATE CREATED AUTHOR AUTHOR'S ORGANIZ ATION 01/20/2024 [facility] DATE CREATED AUTHOR AUTHOR'S ORGANIZ ATION 01/26/2024 [facility] REASON FOR VISIT (unrecogniz ed section and content) 4 month Follow upportable co ncentratorDM, Needs to reapply for PAP, Type 2 IDDM, [facility] [address] FOLLOW UP, Patient will mail PAP back when he is done 10-05-21DS Trulicity RefillAPPT CANCELLEDDS Voicemail/ Diabetic ShoesXRAY RESULTSappt question-DS Patient Assistance Renewal/APPROVEDDM 6 week f/u, Type 2 IDDM, [facility], [facility] Visit CodesMED REFILLDS please call/ Diabetic shoes [...] F/U - pneumonia, SOB, Pt was at [facility], He said he went in on 06/12 and was dc 06/16, He said he is feeling betterDS DM appt CxFallrefillDS Sensor refillDM, DM, DM follow up, Type 2 IDDM, LUCAS 2, [facility] Visit CodesD/Ctrouble breathingrefillDS Returning clinic's callFINGER PAINDS please callsickCKD and HTNburns left handrefillrefillDS Needs [facility] Referral Updatemed refillHosp d/c Farxiga and JardianceD/C [facility] reviewrefillDM follow up, DM, DM, DM follow up, Type 2 IDDM, LUCAS 2, [facility] Visit Codes, In-patient [facility]-10/18-10/24/2022, [facility] Visit CodesconsultDeclined servicesStein Hospice ReferraldownloadStein Hospice ReferralNo [id number] requestDS PAP Basaglar/TrulicityDS VoicemailrefillHOSPITAL VISIT, Acute on chronic systolic CHFrefillupdatefall, bruise, lump on back near L shoulderbalance issuesrefillHOSPITAL FOLLOW UPHEALTHALLIANCE [facility] CAMPUSfallNo Informationrefillbruising all over, difficulty walkingDS N/S DM [...] HTNhosp follow up, rib fx, Malika w/ [facility] left message this afternoon regarding pt, [...] Vinnie Stewart DO Primary Care Provider Active Ethan Cummings II, DO Attending Provider Active Simba Kaufman MD Referring Provider Active Team Status: Active Member Role Status Dates Vinnie R Stewart , DO Primary Care Provider Active Nicolette Manzano APRN Attending Provider Active Team Status: Active Member Role Status Dates Vinnie Sorto Terry , DO Primary Care Provider Active Alejandro Duncan , DO Emergency Provider Active Yakov To , DO Admit Provider, Attending Provider Active Team Status: Inactive Member Role Status Dates Vinnie Sorto Terry , DO Primary Care Provider Active Alejandro Duncan , DO Emergency Provider Active Yakov To , DO Admit Provider, Attending Provider Active Team Status: Inactive Member Role Status Dates Vinnie Sorto Terry , DO Primary Care Provider Active Yakov [...] BE BASED ON THE PRIMARY CLINICAL RECORDS. [facility] [employer] [facility]. provides no warranty or guarantee of the accuracy or completeness of information in this document.
[2024-01-28 07:55] LABS: Basophils Absolute Auto 0.1 10^3/uL (0.0-0.1); Basophils Percent Auto 0.3 % (0.2-2.0); Eosinophils Absolute Auto 0.3 10^3/uL (0.0-0.7); Eosinophils Percent Auto 1.6 % (0.9-7.0); Hematocrit 31.9 % (42.0-54.0); Hemoglobin 10.1 g/dL (14.0-18.0); Immature Granulocytes Pct Auto 0.5 % (0.0-0.5); Lymphocytes Absolute Auto 1.2 10^3/uL (1.2-3.8); Lymphocytes Percent Auto 6.1 % (20.5-60.0); Mean Corpuscular HGB Conc 31.7 g/dL (29.9-35.2); Mean Corpuscular Hemoglobin 26.5 pg (25.9-34.0); Mean Corpuscular Volume 83.7 fL (80.0-94.0); Mean Platelet Volume 10.1 fL (9.5-13.5); Monocytes Absolute Auto 0.8 10^3/uL (0.3-0.8); Monocytes Percent Auto 4.1 % (1.7-12.0); Neutrophils Absolute Auto 16.4 10^3/uL (1.4-6.5); Neutrophils Percent Auto 87.4 % (43.0-75.0); Platelet Count 308 10^3/uL (150-450); Red Blood Count 3.81 10^6/uL (4.70-6.10); Red Cell Distribution Width 16.5 % (11.0-15.0); White Blood Count 18.8 10^3/uL (4.0-11.0)
[2024-01-28 08:27] LABS: Anion Gap 17.8; Carbon Dioxide 20.2 mmol/L (21.0-32.0); Chloride 92 mmol/L (98-107)
[2024-01-28 08:28] LABS: Alanine Aminotransferase 47 U/L (16-63); Aspartate Amino Transferase 37 U/L (15-37); BUN Creatinine Ratio 19.9; Bilirubin Total 0.4 mg/dL (0.2-1.0); Calcium 7.7 mg/dL (8.5-10.1); Estimated GFR (African America 15 (>=60); Estimated GFR (Non-African Ame 13 (>=60); Glucose 224 mg/dL (74-106)
[2024-01-28 08:29] LABS: Albumin Globulin Ratio 0.3; Albumin Level 1.6 g/dL (3.4-5.0); Alkaline Phosphatase 198 U/L (46-116); Globulin 5.8 g/dL; Total Protein 7.4 g/dL (6.4-8.2)
[2024-01-28 08:41] LABS: Sodium 124 mmol/L (136-145)
== END 2024-01-28 01:24 | disposition home or self-care (01) ==
LOC: LAB 01:23
PROVIDERS: PCP Family Medicine; Visit Provider Family Medicine
DX: Z51.81 Encounter for therapeutic drug level monitoring (principal); Z79.2 Long term (current) use of antibiotics; A41.9 Sepsis, unspecified organism
CPT/HCPCS: 36415; 80053; 80150; 85025

== ENCOUNTER 2024-01-28 13:44 | Emergency (ER) | payer MEDICARE, SELFPAY ==
[2024-01-28] VITALS (39 sets, daily range): BP systolic 120–128; BP diastolic 71–73; PULSE 7–89; RESP 14–32; TEMP 37.1; O2SAT 84–100; BMI 27.8
--- NOTE | 2024-01-28 13:50 | XR_ITS ---
The [address] [address] Patient Name: ADWOA PORTER MRN: [id number] date: 1955 Sex: M Assigned Patient Location: ER Current Patient Location: ER Accession/Order Number: [id number] Exam Date: 01/28/2024 14:07 Report Date: 01/28/2024 14:23 At the request of: PAMELA CHAVEZ Procedure: XR chest 1V EXAMINATION: XR chest 1V HISTORY: weak COMPARISON: 01/22/24. TECHNIQUE: ap port erect FINDINGS: LUNGS: Moderate left basilar infiltrate obscuring the hemidiaphragm. The right lung is clear VASCULATURE: No increased pulmonary vasculature. PLEURA: Left pleural effusion CARDIAC: No cardiomegaly or cardiac silhouette abnormality. MEDIASTINUM: No visible mass or adenopathy. Left pacemaker BONES: No fracture or visible bone lesion. OTHER: Right PICC catheter tip projects over the proximal superior vena cava XR/XR chest 1V IMPRESSION: Left basilar infiltrate likely parenchymal consolidation and pleural effusion Electronically authenticated by: BALBIR CABALLERO Date: 01/28/2024 14:23
--- NOTE | 2024-01-28 13:50 | ECG_ITS ---
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
--- NOTE | 2024-01-28 13:51 | ED.GENADUL1 ---
HPI - General Adult General Chief complaint: Recheck/Abnormal Lab/Rx Stated complaint: labs abnormal Time Seen by Provider: 01/28/24 13:49 Source: patient Mode of arrival: ambulance History of Present Illness HPI narrative: 68-year-old male presents for abnormal blood test. He does not seem to have any physical complaints. His BUN was reportedly elevated as was his WBC. He was transported here by paramedics from [facility]. No further history is available. Related Data Home Medications Medication Instructions Recorded Confirmed aspirin 81 mg tablet,delayed 81 mg PO DAILY 05/24/23 01/28/24 release (Adult Low Dose Aspirin) atorvastatin 80 mg tablet 80 mg PO QPM 05/24/23 01/28/24 carvedilol 25 mg tablet 25 mg PO Q12H 05/24/23 01/28/24 digoxin 125 mcg (0.125 mg) tablet 0.125 mg PO QDAY 05/24/23 01/28/24 gabapentin 400 mg capsule 400 mg PO Q12H 05/24/23 01/28/24 hydrocodone 5 mg-acetaminophen 325 1 tab PO Q8H PRN pain, moderate 05/24/23 01/28/24 mg tablet isosorbide dinitrate 20 mg tablet 20 mg PO BID 05/24/23 01/28/24 levothyroxine 50 mcg tablet 50 mcg PO DAILY 05/24/23 01/28/24 spironolactone 25 mg tablet 25 mg PO QAM 05/24/23 01/28/24 cyanocobalamin (vitamin B-12) 1,000 mcg PO DAILY 06/02/23 01/28/24 1,000 mcg tablet,extended release hydralazine 50 mg tablet 50 mg PO Q8H 06/02/23 01/28/24 nitroglycerin 0.4 mg sublingual 0.4 mg sublingual Q5M PRN chest 06/02/23 01/28/24 tablet pain amikacin 500 mg/2 mL injection 500 mg IM Q12H 01/28/24 01/28/24 solution bumetanide 2 mg tablet 2 mg PO BID 01/28/24 01/28/24 ceftriaxone 1 gram intravenous 1 g IV DAILY 01/28/24 01/28/24 solution heparin, porcine (PF) 10 unit/mL 10 unit IV TID PRN IV line flush 01/28/24 01/28/24 intravenous syringe (Heparin Lock Flush (Porcine) (PF)) insulin lispro 100 unit/mL 1 sliding scale dose subcut 01/28/24 01/28/24 subcutaneous pen (Humalog KwikPen USEASDIRECTD (U-100) Insulin) linezolid in 5% dextrose in water 600 mg IV Q12H 01/28/24 01/28/24 600 mg/300 mL intravenous piggyback sodium chloride 0.9 % (flush) 10 ml IV TID 01/28/24 01/28/24 (Normal Saline Flush 0.9 % injection syringe) warfarin 2.5 mg tablet 2.5 mg PO QPM 01/28/24 01/28/24 Previous Rx's Medication Instructions Recorded potassium chloride 10 mEq 20 meq (2 x 10 mEq) PO TID #90 tabs 06/21/23 tablet,extended release(part/cryst) (Klor-Con M) collagenase clostridium histo. 250 1 applic topical DAILY #90 grams 01/23/24 unit/gram topical ointment (Santyl) Allergies Allergy/AdvReac Type Severity Reaction Status Date / Time GABRIELA Inhibitors AdvReac Mild COUGH Verified 01/15/24 16:55 Review of Systems ROS Narrative A ten point review of systems is negative except as noted above. [facility] Medical History (Updated 01/28/24 @ 16:05 by Wayne Ro MD) Open wound of finger of right hand ?S61.209A - Unspecified open wound of unspecified finger without damage to nail, initial encounter (ICD-10) Chronic wound of extremity Cellulitis and abscess of foot ?L03.119 - Cellulitis of unspecified part of limb (ICD-10) ?L02.619 - Cutaneous abscess of unspecified foot (ICD-10) Hypokalemia ?E87.6 - Hypokalemia (ICD-10) Hyponatremia ?E87.1 - Hypo-osmolality and hyponatremia (ICD-10) Generalized weakness ?R53.1 - Weakness (ICD-10) Chronic wound of extremity Dyspnea ?R06.00 - Dyspnea, unspecified (ICD-10) CKD (chronic kidney disease) stage 4, GFR 15-29 ml/min ?N18.4 - Chronic kidney disease, stage 4 (severe) (ICD-10) HLD (hyperlipidemia) ?E78.5 - Hyperlipidemia, unspecified (ICD-10) Cardiac defibrillator in place ?Z95.810 - Presence of automatic (implantable) cardiac defibrillator (ICD-10) Pacemaker ?Z95.0 - Presence of cardiac pacemaker (ICD-10) COPD (chronic obstructive pulmonary disease) ?J44.9 - Chronic obstructive pulmonary disease, unspecified (ICD-10) CAD (coronary artery disease) ?I25.10 - Atherosclerotic heart disease of [place] coronary artery without angina pectoris (ICD-10) Benign essential hypertension ?I10 - Essential (primary) hypertension (ICD-10) Anemia in chronic kidney disease ?N18.9 - Chronic kidney disease, unspecified (ICD-10) ?D63.1 - Anemia in chronic kidney disease (ICD-10) Paroxysmal atrial fibrillation ?I48.0 - Paroxysmal atrial fibrillation (ICD-10) Type 2 diabetes mellitus with hyperglycemia ?E11.65 - Type 2 diabetes mellitus with hyperglycemia (ICD-10) Hypothyroid ?E03.9 - Hypothyroidism, unspecified (ICD-10) Chronic kidney disease, stage 3a ?N18.31 - Chronic kidney disease, stage 3a (ICD-10) Chronic HFrEF (heart failure with reduced ejection fraction) ?I50.22 - Chronic systolic (congestive) heart failure (ICD-10) Surgical History History of appendectomy ?Z90.49 - Acquired absence of other specified parts of digestive tract (ICD-10) Family History Mother Family history of CHF (congestive heart failure) Brother Family history of cancer Social History Within the past year, how often did you have a drink containing alcohol: never Within the past year, how often did you have six or more drinks on one occasion: never Score interpretation: A score less than 4 is consistent with normal alcohol consumption. 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 Known occupational exposures/hazards: No Highest level of school completed/degree received: high school graduate Do you want help with school or training: No Are you now , , , , never or living with a partner: living with partner In a typical week, how many times do you talk on the telephone with family, friends, or neighbors: 3 or more times per week How often do you get together with friends or relatives: 3 or more times per week How often do you attend rastafarian or samaritan services: never Do you belong to any clubs or organizations such as rastafarian groups unions, fraternal or athletic groups, or school groups: no Total score: 2 Score interpretation: A score of greater than or equal to 2 indicates the lowest level of social isolation. Little interest or pleasure in doing things: not at all Feeling down, depressed, or hopeless: not at all Feel stressed/tense/nervous/anxious/difficulty sleeping: not at all Due to disability, difficulty making decisions: No Do you think of yourself as: straight/heterosexual Gender Identity: male Exam Narrative Exam Narrative: Nurses note and vital signs reviewed and patient is not hypoxic. General: The patient appears well and in no apparent distress. Patient is resting comfortably on cart. Skin: Warm, dry, no pallor noted. Several small bruises of various ages are present on his arms Head: Normocephalic, atraumatic Eye: Normal conjunctiva, no drainage Ears, Nose, Mouth, and Throat: oral mucosa is moist. Nares patent. Cardiovascular: Regular Rate and Rhythm Respiratory: Patient is in no distress, no accessory muscle use, lungs are clear to auscultation, no wheezing, rales or rhonchi Back: non-tender GI: Hyperactive bowel sounds, mild tenderness. There may be mild distention. Musculoskeletal: The patient has no evidence of calf tenderness, no pitting edema, symmetrical pulses noted bilaterally. Dressing present on his foot. Neurological: A&O x4, normal speech Psychiatric: Cooperative Constitutional Vital Signs, click to edit/add: Last Vital Signs Temp 98.7 F 01/28/24 13:44 Pulse 88 01/28/24 13:44 Resp 18 01/28/24 13:44 BP 128/71 01/28/24 13:44 Pulse Ox 94 L 01/28/24 15:10 O2 Del Method Room Air 01/28/24 15:10 O2 Flow Rate 2 01/28/24 15:10 Course Vital Signs Vital signs: Vital Signs Temperature 98.7 F 01/28/24 13:44 Pulse Rate 88 01/28/24 13:44 Respiratory Rate 18 01/28/24 13:44 Blood Pressure 128/71 01/28/24 13:44 Pulse Oximetry 97 01/28/24 13:44 Oxygen Delivery Method Room Air 01/28/24 13:44 Temperature 98.7 F 01/28/24 13:44 Pulse Rate 88 01/28/24 13:44 Respiratory Rate 18 01/28/24 13:44 Blood Pressure 128/71 01/28/24 13:44 Pulse Oximetry 94 L 01/28/24 15:10 Oxygen Delivery Method Room Air 01/28/24 15:10 Oxygen Delivery Flow Rate 2 01/28/24 15:10 Medical Decision Making MDM Narrative Medical decision making narrative: The patient has significantly elevated BUN and creatinine over his baseline. Potassium is also elevated and he is being given IV insulin, his blood sugar is already elevated. I discussed the case with Dr. Moore who request transfer and I have spoken to the hospitalist at [facility] who accepts the patient. The patient is agreeable and stable for transfer. Chest x-ray per radiologist suggest the possibility of an infiltrate but the patient does not have fever cough or shortness of breath. His WBC is at the baseline and the lactic acid and procalcitonin are normal. He is already on IV Rocephin. Differential Diagnosis Differential Diagnosis: Acute kidney injury, dehydration, hyperkalemia Lab Data Lab results reviewed: Yes I reviewed the patient's lab results Labs: Lab Results 01/28/24 Range/Units 13:52 WBC 17.3 H (4.0-11.0) 10^3/uL RBC 3.56 L (4.70-6.10) 10^6/uL Hgb 9.5 L (14.0-18.0) g/dL Hct 29.6 L (42.0-54.0) % MCV 83.1 (80.0-94.0) fL MCH 26.7 (25.9-34.0) pg MCHC 32.1 (29.9-35.2) g/dL RDW 16.5 H (11.0-15.0) % Plt Count 285 (150-450) 10^3/uL MPV 9.7 (9.5-13.5) fL Neut % (Auto) 86.5 H (43.0-75.0) % Lymph % (Auto) 6.4 L (20.5-60.0) % [place] % (Auto) 4.1 (1.7-12.0) % Eos % (Auto) 2.3 (0.9-7.0) % Baso % (Auto) 0.2 (0.2-2.0) % Neut # (Auto) 15.0 H (1.4-6.5) 10^3/uL Lymph # (Auto) 1.1 L (1.2-3.8) 10^3/uL [place] # (Auto) 0.7 (0.3-0.8) 10^3/uL Eos # (Auto) 0.4 (0.0-0.7) 10^3/uL Baso # (Auto) 0.0 (0.0-0.1) 10^3/uL Abs Immat Gran (auto) 0.08 H (0.00-0.03) 10^3/uL Imm/Tot Granulo (auto) 0.5 (0.0-0.5) % PT 20.3 H (9.0-11.6) sec INR 1.99 Sodium 124 L* (136-145) mmol/L Potassium 5.8 H (3.5-5.1) mmol/L Chloride 94 L (98-107) mmol/L Carbon Dioxide 18.8 L (21.0-32.0) mmol/L Anion Gap 17.0 BUN 97.0 H* (7.0-18.0) mg/dL Creatinine 4.98 H (0.70-1.30) mg/dL Est GFR ( Amer) 14 L (>=60) Est GFR (Non-Af Amer) 12 L (>=60) BUN/Creatinine Ratio 19.5 Glucose 329 H (74-106) mg/dL Lactate 1.7 (0.4-2.0) mmol/L Calcium 7.4 L (8.5-10.1) mg/dL Total Bilirubin 0.4 (0.2-1.0) mg/dL Direct Bilirubin 0.2 (0.0-0.2) mg/dL AST 31 (15-37) U/L ALT 42 (16-63) U/L Alkaline Phosphatase 194 H (46-116) U/L Troponin I High Sens 24.1 (4.0-76.1) pg/mL Total Protein 7.2 (6.4-8.2) g/dL Albumin 1.5 L (3.4-5.0) g/dL Globulin 5.7 g/dL Albumin/Globulin Ratio 0.3 Procalcitonin 0.14 (0.00-0.50) ng/mL Imaging Data Chest x-ray: Radiologist's impression: ITS Impressions Chest X-Ray 01/28/24 13:50 IMPRESSION: Left basilar infiltrate likely parenchymal consolidation and pleural effusion Electronically authenticated by: BALBIR CABALLERO Date: 01/28/2024 14:23 ECG Data Attestation: I personally reviewed and interpreted this ECG as follows: (EKG on my interpretation shows no acute findings) Critical Care Time Critical Care Time Critical Care Time: Yes Total Critical Care Time: 35 Attestation: Due to the high probability of sudden and clinically significant deterioration in the patient's condition he/she required the highest level of my preparedness to intervene urgently I provided critical care time including documentation time, medication orders and management, reevaluation, vital sign assessment, ordering and reviewing of lab tests, ordering and reviewing of x-ray studies, and admission orders. Aggregate critical care time is 35 minutes including only time during which I was engaged in work directly related to his/her care and did not include time spent treating other patients simultaneously. Discharge Plan Discharge Chief Complaint: Recheck/Abnormal Lab/Rx Clinical Impression: Acute kidney injury Patient Disposition: [facility] Time of Disposition Decision: 16:04 Discharge Location: [facility] Condition: Fair Mode of Transportation: EMS
[2024-01-28 14:03] LABS: Basophils Percent Auto 0.2 % (0.2-2.0); Eosinophils Absolute Auto 0.4 10^3/uL (0.0-0.7); Eosinophils Percent Auto 2.3 % (0.9-7.0); Hematocrit 29.6 % (42.0-54.0); Hemoglobin 9.5 g/dL (14.0-18.0); Immature Granulocytes Abs Auto 0.08 10^3/uL (0.00-0.03); Immature Granulocytes Pct Auto 0.5 % (0.0-0.5); Lymphocytes Absolute Auto 1.1 10^3/uL (1.2-3.8); Lymphocytes Percent Auto 6.4 % (20.5-60.0); Mean Corpuscular HGB Conc 32.1 g/dL (29.9-35.2); Mean Corpuscular Hemoglobin 26.7 pg (25.9-34.0); Mean Corpuscular Volume 83.1 fL (80.0-94.0); Mean Platelet Volume 9.7 fL (9.5-13.5); Monocytes Absolute Auto 0.7 10^3/uL (0.3-0.8); Monocytes Percent Auto 4.1 % (1.7-12.0); Neutrophils Percent Auto 86.5 % (43.0-75.0); Platelet Count 285 10^3/uL (150-450); Red Blood Count 3.56 10^6/uL (4.70-6.10); Red Cell Distribution Width 16.5 % (11.0-15.0); White Blood Count 17.3 10^3/uL (4.0-11.0)
[2024-01-28 14:20] LABS: BUN Creatinine Ratio 19.5; Calcium 7.4 mg/dL (8.5-10.1); Carbon Dioxide 18.8 mmol/L (21.0-32.0); Chloride 94 mmol/L (98-107); Estimated GFR (African America 14 (>=60); Estimated GFR (Non-African Ame 12 (>=60); Glucose 329 mg/dL (74-106); Potassium 5.8 mmol/L (3.5-5.1); Troponin I High Sensitivity 24.1 pg/mL (4.0-76.1)
[2024-01-28 14:22] LABS: Sodium 124 mmol/L (136-145)
[2024-01-28] MEDS: 0.9 % SODIUM CHLORIDE 1,000 ML 1000 ML IV (14:45)
[2024-01-28] MEDS: HYDROCODONE/ACET 5-325 MG TABLET 1 TAB PO (14:50)
[2024-01-28 14:51] LABS: INR 1.99; Prothrombin Time 20.3 sec (9.0-11.6)
[2024-01-28 14:55] LABS: Alanine Aminotransferase 42 U/L (16-63); Albumin Globulin Ratio 0.3; Albumin Level 1.5 g/dL (3.4-5.0); Alkaline Phosphatase 194 U/L (46-116); Aspartate Amino Transferase 31 U/L (15-37); Bilirubin Direct 0.2 mg/dL (0.0-0.2); Bilirubin Total 0.4 mg/dL (0.2-1.0); Globulin 5.7 g/dL; Total Protein 7.2 g/dL (6.4-8.2)
[2024-01-28 15:00] LABS: Lactate/Lactic Acid 1.7 mmol/L (0.4-2.0)
[2024-01-28 15:05] LABS: PROCALCITONIN 0.14 ng/mL (0.00-0.50)
--- NOTE | 2024-01-28 15:10 | PC.NURSE ---
pt requesting oxygen. pt states he is feeling short of breath. Dr. Ro notified and is ok with pt being placed on NC
[2024-01-28] MEDS: ZINC OXIDE 30% CREAM 113.4 GM TUBE 1 APPLIC TOPICAL (15:50)
[2024-01-28] MEDS: INSULIN REGULAR 300 UNITS/3 ML 10 UNIT IV (16:17)
--- NOTE | 2024-01-28 16:40 | PC.NURSE ---
Pt noted to have moderately severe excoriation to bilateral groin and perineal area. Skin cleansed and Pinxav applied
[2024-01-28] MEDS: 0.9 % SODIUM CHLORIDE 1,000 ML 75 ML IV (17:00)
== END 2024-01-28 19:25 | disposition short-term general hospital (02) ==
PROVIDERS: Emergency Provider Emergency Medicine; PCP Family Medicine
DX: N17.9 Acute kidney failure, unspecified (principal); Z51.81 Encounter for therapeutic drug level monitoring; A41.9 Sepsis, unspecified organism; Z79.2 Long term (current) use of antibiotics; E78.5 Hyperlipidemia, unspecified; Z95.810 Presence of automatic (implantable) cardiac defibrillator; E11.22 Type 2 diabetes mellitus with diabetic chronic kidney disease; E03.9 Hypothyroidism, unspecified; I48.0 Paroxysmal atrial fibrillation; I25.10 Atherosclerotic heart disease of native coronary artery without angina pectoris; J44.9 Chronic obstructive pulmonary disease, unspecified; I13.0 Hypertensive heart and chronic kidney disease with heart failure and stage 1 through stage 4 chronic kidney disease, or unspecified chronic kidney disease; I50.22 Chronic systolic (congestive) heart failure; N18.9 Chronic kidney disease, unspecified; Z90.49 Acquired absence of other specified parts of digestive tract; Z79.82 Long term (current) use of aspirin; Z79.899 Other long term (current) drug therapy; Z79.890 Hormone replacement therapy; Z79.4 Long term (current) use of insulin; Z79.01 Long term (current) use of anticoagulants
CPT/HCPCS: 36415; 71045; 80048; 80053; 80076; 80150; 81001; 83605; 84145; 84484; 85025; 85610; 87040; 93005; 99285

== ENCOUNTER 2024-02-12 09:03 | Outpatient (OUT) | payer MEDICARE, SELFPAY | END 2024-02-12 09:04 | disposition home or self-care (01) | LOC: WC 09:03 | PROVIDERS: PCP Family Medicine; Visit Provider Podiatrist Foot & Ankle Surgery | DX: S80.811A Abrasion, right lower leg, initial encounter (principal); E11.621 Type 2 diabetes mellitus with foot ulcer; L97.422 Non-pressure chronic ulcer of left heel and midfoot with fat layer exposed; L97.412 Non-pressure chronic ulcer of right heel and midfoot with fat layer exposed; L97.528 Non-pressure chronic ulcer of other part of left foot with other specified severity | CPT/HCPCS: 11043; 11046; A6213 ==

== ENCOUNTER 2024-02-13 01:57 | Outpatient (REF) | payer MEDICARE, SELFPAY ==
--- OUTSIDE RECORDS SUMMARY | 2024-02-13 02:03 | XMS_ITS | CCD ---
Author Organization [facility] Care Team Providers Care Block Layer Name Role Phone Vinnie Stewart Primary Care Provider Unavailab Valentin Gomez (WND) Attending Provider Unavaila Vinnie Lemon Primary Care Provider Nicolette Manzano Attending Provider [phone] Ivon Kat Attending Provider PA Procedure Practitioner Unavailab VINNIE Nash Primary [...] Attending Provider MD Simba Kaufman Referring Provider CHARISSE Manzano Attending Provider [phone] DO Alejandro Duncan Emergency Provider DO Yakov To Admit Provider [phone] DO Yakov To Attending Provider [phone] SHIRLEY, BRYCE Admitting Unavailable SHIRLEY, BRYCE Attending Unavailable SHIRLEY, BRYCE Consulting [facility] Unavailable FAWWAD, BROWN H Attending Unavailable FAWWAD, BROWN H Admitting [facility] Care Unavailable FAWWAD, BROWN H Admitting Unavailable FAWWAD, BROWN H Attending Unavailable [facility] Primary Care Unavailable SEPIDEH ., NIK Admitting Unavailable SEPIDEH ., NIK Attending Unavailable JACOBSON ., DR PROMISE Proctor Consulting Unavailable [facility] Primary Care Unavailable PAY ., DR TOM Consulting Unavailable SUSHIL STOUT Consulting Unavailable AHDOOTSTU Consulting Unavailable CAILIN, MASSIMO Consulting Unavailable PRUITTMICKY Consulting Unavailable SISTER, MURTAZA Consulting Unavailable SEPIDEH ., NIK Consulting Unavailable [facility] Primary Care Unavailable SHANTANU ., DR SOTELO Consulting Unavailable HOY ., DR SOTELO Admitting Unavailable HOY ., DR SOTELO Attending Unavailable ZIEBER, DR BIANCA Sorto Consulting Unavailable SONIDO VAUGHN Consulting Unavailable AUSTIN, BINOR Consulting Unavailable ALEK, AMAR Consulting Unavailable ADRIEL VIRGEN Consulting Unavailable FAWWAD, BROWN H Attending Unavailable FAWWAD, BROWN H Admitting [facility] Care Unavailable FAWWAD, BROWN H Attending Unavailable FAWWAD, BROWN H Admitting [facility]available [facility] Care Unavailable CAILIN, MASSIMO Consulting Unavailable CAILIN, MASSIMO Admitting Unavailable CAILIN, MASSIMO Attending Unavailable [facility] Primary Care Unavailable YEARTY, KODI Consulting Unavailable YEARTY, KODI Admitting Unavailable STEPHANIE MYERSARA Attending Unavailable [facility] Primary Care Unavailable MISC, DR YEN Consulting Unavailable MISC, DR YEN Admitting Unavailable MISC, DR YEN Attending Unavailable [facility] Primary Care Unavailable JAC, SIMBA Consulting Unavailable JAC, SIMBA Admitting Unavailable STEWART, VINNIE Primary Care Unavailable JACTJUL Attending Unavailable JAC, SIMBA Admitting Unavailable JAC, SIMBA Attending Unavailable [facility] Primary Care Unavailable JAC, SIMBA Consulting Unavailable FAWWAD, BROWN H Attending Unavailable FAWWAD, BROWN H Admitting Unavailable [facility] [place] Primary Care Unavailable FAWWAD, BROWN H Admitting Unavailable FAWWAD, BROWN H Attending Unavailable [facility] Primary Care Unavailable FAWWAD, BROWN H Attending Unavailable FAWWAD, BROWN H Admitting Unavailable [facility] Primary Care Unavailable YEARTY, KODI Admitting Unavailable YEARTY, KODI Attending Unavailable [facility] [place] Primary Care Unavailable YEARTY, KODI Consulting Unavailable CAILIN, MASSIMO Admitting Unavailable CAILIN, MASSIMO Attending Unavailable [facility], [place] Primary Care Unavailable CAILIN, MASSIMO Consulting Unavailable EMA ., CANDELARIA Admitting Unavailable EMA Olson, CANDELARIA Attending Unavailable JORGE BUCKNER Consulting Unavailable [facility] Primary Care Unavailable EMA Olson, CANDELARIA Consulting Unavailable FAWWAD, BROWN H Attending Unavailable [facility] Primary Care Unavailable FAWWAD, BROWN H Admitting Unavailable DR IMTIAZ DUVAL Consulting Unavailable FAWWAD, BROWN H Consulting Unavailable SOFÍA GASTON Consulting Unavailable MIRYAM MENDEZ Consulting Unavailable JOSE STRONG Consulting Unavailable BERMUDEZ, ALLIE Consulting Unavailable FAWWAD, BROWN H Admitting Unavailable FAWWAD, BROWN H [facility] FAWWAD, BROWN H Attending Unavailable FAWWAD, BROWN H Admitting Unavailable [facility] Primary Care Unavailable FAWWAD, BROWN H Admitting Unavailable FAWWAD, BROWN H Attending [facility] Care Unavailable HIGHLANDER, PETER D Admitting Unavailable HIGHLANDER, PETER D Attending Unavailable [facility] Primary Care Unavailable HIGHLANDER, PETER D Admitting Unavailable HIGHLANDER, PETER D Attending Unavailable [facility] Primary Care Unavailable HIGHLANDER, PETER D Admitting Unavailable HIGHLANDER, PETER D Attending Unavailable [facility], [place] Primary Care Unavailable HIGHLANDER, PETER D Admitting Unavailable HIGHLANDER, PETER D Attending Unavailable [facility], [place] Primary Care Unavailable HIGHLANDER, PETER D Admitting Unavailable HIGHLANDER, PETER D Attending Unavailable [facility] Primary Care Unavailable SADE, DR BIANCA Sorto Consulting Unavailable PAY ., DR TOM Admitting Unavailable PAY ., DR TOM Attending Unavailable [facility] Primary Care Unavailable PAY ., DR TOM Consulting Unavailable FAWWAD, BROWN H Admitting Unavailable FAWWAD, BROWN H Attending Unavailable STEWART, VINNIE Primary Care Unavailable [place], DR BALBIR Thorpe Consulting Unavailable ZIEBER, DR [...] DO Vinnie Stewart Primary Care Provider Mapus, LOMBARDI DEVELOPER Nicolette Wright Attending Provider DAHIANA BELCHER Attending Unavailable SUSHIL STOUT Attending Unavailable FATIMAH NARVAEZ Referring Unavailable BRYCE WATSON Attending Unavailable MASSIMO SWAN Attending Unavailable SUSHIL STOUT Attending Unavailable SHIRLEY, BRYCE Attending Unavailable BRYCE WATSON Attending Unavailable SUSHIL STOUT Attending Unavailable DO Vinnie Stewart Primary Care Provider Mapus, LOMBARDI DEVELOPER Tondra K Attending Provider [phone] NELLY Arroyo Attending Provider DO Farhan Hudson Admit Provider MD Farhan Schofield Other Provider MD Lia Law Other Provider NELLY Valle Other Provider [phone] MD Raul Bravo Other Provider [phone] KATIE Bailey Other Provider Unavailable MD Rodrick Herndon Other Provider KINSEY George Other Provider MD Shaheed Bryan Other Provider MD Swathi Burnham Attending Provider [phone] Yakov To Attending Unavailable Vinnie Stewart Primary [...] Propensity to adverse reactions 2 Cough [facility] Repository (20 sources) Angiotensin Converting Enzyme (Lupis) Inhibitors Propensity to adverse reactions cough [email or web address] Other Medications Current Medications Medication Drug Class(es) [...] 8 hrs for 30 day(s) Sep, Active [id number] 200 actuat albuterol 0.09 mg/actuat metered dose [...] puff(s) by in halation twice daily calcitriol 0.52176 mg oral capsule (1 source) Vitamin D3 [...] Active Start: 09-13-2022 take 1 tablet by [facility] every eight hours Cephalexin 500 MG 1 tablet Orally every 8 hours for 7 days Aug, Active Start: 03-02-2022 take 1 capsule by [facility] every eight hours Cephalexin 500 MG 1 [...] DX E11.65 Apr, Active FreeStyle Lucas 2 [place] - (20 sources) FreeStyle Lucas 2 [place] - USE READER TO TEST BLOOD SUGAR DIRECTED DAILY for 365 Active FreeStyle Lucas 2 [place] - USE DIRECTED DAILY for 365 Active FreeStyle Lucas 2 [place] Sys tm - (20 sources) FreeStyle Lucas 2 [place] Systm - as directed SQ Daily Active FreeStyle Lucas 2 [place] Systm - as directed SQ Daily for [...] daily for 90 days transition from [facility] Aug, Active inject 50 [IU] by ross [...] AM Active take 3 tablets by mo [facility] once in the evening Furosemide 20 MG [...] sources) Anticholinergic Start: 04-10-2022 End: 12-04-2022 Ipratropium [place] Discontinued SOLUTION April 10, 2022 12:00am December [...] 12, 2020 8:46am take 2 tablets by [facility] every twenty-four hours sennosides, retirement 8.6 mg oral tablet (7 sources) Start: [...] Angina pectoris; 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] Onset: [...] sources) Long-term current use of insulin; Translations: [USP (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] Episodic Other aftercare (9 sources) USP (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; Translations: [FPC CURRENT USE OF INSULIN] Onset: 1 Resolved: 2 Episodic Other aftercare (1 source) USP (current) use of aspirin; 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: [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 PRESS OPERATOR 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 USE OF ASPIRIN] Onset: 3 Episodic Other aftercare (2 sources) Other extermination inspector (current) drug therapy; Translations: [OTH FPC CURRENT DRUG THERAPY] Onset: 3 Episodic Other aftercare (5 sources) Encounter for therapeutic drug level monitoring; Translations: [ENC THERAPEUTC DRUG LEVL MONITORING] Onset: 3 Episodic Other aftercare (1 source) extermination inspector (current) use of anticoagulants; Translations: [FPC CURRNT [...] Albumin BCG dye [Mass/Vol] 2.4 g/dL 3.5-5.7 [facility] Basophils Auto (Bld) [#/Vol] Ordered By: Swathi Burnham on 02-05-2024 Basophils (Bld) [#/Vol] 0.1 10*3/uL 0.0-0.2 [facility] Basophils/100 WBC Auto (Bld) Ordered By: Swathi Burnham on 02-05-2024 Basophils/100 WBC (Bld) 0.6 % . [facility] Calcium [Mass/volume] in Ser um or PlasmaOrdered By: Farhan Hudson on 02-05-2024 Calcium [Mass/Vol] 7.0 mg/dL 8.6-10.3 [facility] Capillary blood glucose mike urement by glucometer (mass/volume)Ordered By: Swathi Burnham on 02-05-2024 Glucose [Mass/Vol] 256 mg/dL Normal [facility] Comment on above: Random Glucose Refer ence Range is dependent on time and content of last meal. Glucose of more than 200 mg/dL in a nonstressed, ambulatory subject supports the diagnosis of Diabetes Mellitus. Result Comment: [place] [facility] Glucose Reference Range is dependent on time and content of last meal. Glucose of more than 200 mg/dL in a nonstressed, ambulatory subject supports the diagnosis of Diabetes Mellitus. Performed By: #### C BC, BMP #### [address] Carbon dioxide, total [Moles /volume] in Serum or PlasmaOrdered By: Farhan Hudson on 02-05-2024 CO2 [Moles/Vol] 27.6 mmol/L 21.0-31.0 [facility] Chloride [Moles/volume] in S mary or PlasmaOrdered By: Farhan Hudson on 02-05-2024 Chloride [Moles/Vol] 95 mmol/L 98-107 [facility] Complete Blood Count Auto Di ffon 02-05-2024 Basophils (Bld) [#/Vol] 0.1 10*3/uL Normal 0.0-0.2 [facility] Comment on above: Result Comment: PERF ORMED BY: [place] [id number] PATHOLOGIST CUSTOMER SALES SERVICE MANAGER RAFA BYRNE M.D. Performed By: #### C BC, BMP #### [address] Basophils/100 WBC (Bld) 0.6 % Normal . [facility] Comment on above: Performed By: #### C BC, BMP #### [address] Eosinophils (Bld) [#/Vol] 0.4 10*3/uL Normal 0.0-0.45 [facility] Comment on above: Performed By: #### C BC, BMP #### [place] [address] [place] Eosinophils/100 WBC (Bld) 5.0 % Normal . [facility] Comment on above: Performed By: #### C BC, BMP #### [address] Erythrocyte distribution width (RBC) [Ratio] 17.7 % High 12.0-14.8 [facility] Comment on above: Performed By: #### C BC, BMP #### [address] Hematocrit (Bld) [Volume fraction] 22.6 % Low 38.8-50.0 [facility] Comment on above: Performed By: #### C BC, BMP #### [address] Hemoglobin (Bld) [Mass/Vol] 7.6 g/dL Low 13.0-17.0 [facility] Comment on above: Performed By: #### C BC, BMP #### [facility] [address] [place] [address] [place] Lymphocytes (Bld) [#/Vol] 1.3 10*3/uL Normal 1.00-4.8 [facility] Comment on above: Performed By: #### C BC, BMP #### [facility] [address] Lymphocytes/100 WBC (Bld) 14.7 % Normal . [facility] Comment on above: Performed By: #### C BC, BMP #### [facility] [address] MCH (RBC) [Entitic mass] 26.6 pg Low 27.5-35.2 [facility] Comment on above: Performed By: #### C BC, BMP #### [facility] [address] MCV (RBC) [Entitic vol] 79.6 fL Low 83.5-101 [facility] Comment on above: Performed By: #### C BC, BMP #### [facility] [address] Mean Corpuscular HGB Conc 33.4 g/dL Normal 32.5-35.6 [facility] Comment on above: Performed By: #### C BC, BMP #### [facility] [address] Monocytes (Bld) [#/Vol] 0.5 10*3/uL Normal 0.0-0.8 [facility] Comment on above: Performed By: #### C BC, BMP #### [facility] [address] [place] [address] [place] Monocytes/100 WBC (Bld) 6.1 % Normal . [facility] Comment on above: Performed By: #### C BC, BMP #### [facility] [address] Neutrophils (Bld) [#/Vol] 6.6 10*3/uL Normal 1.8-7.7 [facility] Comment on above: Performed By: #### C BC, BMP #### [facility] [address] Neutrophils/100 WBC (Bld) 73.6 % Normal . [facility] Comment on above: Performed By: #### C MAHAD, BMP #### [facility] [address] NRBC% 0.0 /100{WBC} Normal 0-0.5 [facility] Comment on above: Performed By: #### C MAHAD, BMP #### [address] Platelet mean volume (Bld) [Entitic vol] 7.2 fL Normal 6.6-10.1 [facility] Comment on above: Performed By: #### C MAHAD, BMP #### [address] Platelets (Bld) [#/Vol] 180 10*3/uL Normal 150-450 [facility] Comment on above: Performed By: #### C MAHAD, BMP #### [address] RBC (Bld) [#/Vol] 2.84 10*6/uL Low 3.90-5.60 [facility] Comment on above: Performed By: #### C MAHAD, BMP #### [address] WBC (Bld) [#/Vol] 8.9 10*3/uL Normal 4.1-10.5 [facility] Comment on above: Performed By: #### C MAHAD, BMP #### [address] Creatinine [Mass/volume] in Serum or PlasmaOrdered By: Farhan Hudson on 02-05-2024 Creatinine [Mass/Vol] 2.63 mg/dL 0.70-1.30 [facility] Comment on above: Delta: 3.41 on 02/03 /24-0600 Eosinophils Auto (Bld) [#/Vo l]Ordered By: Swathi Burnham on 02-05-2024 Eosinophils (Bld) [#/Vol] 0.4 10*3/uL 0.0-0.45 [facility] Eosinophils/100 WBC Auto (Bl d)Ordered By: Swathi Burnham on 02-05-2024 Eosinophils/100 WBC (Bld) 5.0 % . [facility] Erythrocyte distribution wid th Auto (RBC) [Ratio]Ordered By: Swathi Burnham on 02-05-2024 Erythrocyte distribution width (RBC) [Ratio] 17.7 % 12.0-14.8 [facility] Glucose Poct Glucometerson 0 02-05-2024 Commemt1 Glu2: Cleaned Meter Normal [facility] Comment on above: Result Comment: PERF ORMED BY: [place] [id number] PATHOLOGIST CUSTOMER SALES SERVICE MANAGER RAFA BYRNE M.D. Performed By: #### C MAHAD, BMP #### [facility] [address] [place] [address] Performed By: #### G ALVARADO #### Point of Care testing , Glucose [Mass/Vol] 221 mg/dL Normal [facility] Comment on above: Result Comment: [facility] Glucose Reference Range is dependent on time and content of last meal. Glucose of more than 200 mg/dL in a nonstressed, ambulatory subject supports the diagnosis of Diabetes Mellitus. Performed By: #### G LULS #### Point of Care testing , Glucose [Mass/Vol] 166 mg/dL Normal [facility] Comment on above: Result Comment: [facility] Glucose Reference Range is dependent on time and content of last meal. Glucose of more than 200 mg/dL in a nonstressed, ambulatory subject supports the diagnosis of Diabetes Mellitus. PERFORMED BY: [place] [id number] PATHOLOGIST CUSTOMER SALES SERVICE MANAGER RAFA BYRNE M.D. Performed By: #### C BC, BMP #### [facility] [address] [place], [place] [id number] [facility] Glucose [Mass/volume] in Ser um or PlasmaOrdered By: Farhan Hudson on 02-05-2024 Glucose [Mass/Vol] 162 mg/dL 70-100 [facility] Comment on above: ADA recommended refe rence rangeRandom Glucose Reference Range is dependent on time and content of last meal. Glucose of more than 200 mg/dL in a nonstressed, ambulatory subject supports the diagnosis of Diabetes Mellitus. Hematocrit Auto (Bld) [Volum e fraction]Ordered By: Swathi Burnham on 02-05-2024 Hematocrit (Bld) [Volume fraction] 22.7 % 38.8-50.0 [facility] Hemoglobin [Mass/volume] in BloodOrdered By: Swathi Burnham on 02-05-2024 Hemoglobin (Bld) [Mass/Vol] 7.5 g/dL 13.0-17.0 [facility] Hemoglobin and Hematocriton 02-05-2024 Hematocrit (Bld) [Volume fraction] 22.7 % Low 38.8-50.0 [facility] Comment on above: Result Comment: PERF ORMED BY: [place] [id number] PATHOLOGIST CUSTOMER SALES SERVICE MANAGER RAFA BYRNE M.D. Performed By: #### H H #### [facility] [address] [place] [address] Hemoglobin (Bld) [Mass/Vol] 7.5 g/dL Low 13.0-17.0 [facility] Comment on above: Performed By: #### H H #### [facility] [address] [place] [address] [place] Leukocytes [#/volume] correc morris for nucleated erythrocytes in Blood by Automated counOrdered By: Swathi Burnham on 02-05-2024 WBC corrected for nucl RBC Auto (Bld) [#/Vol] 8.9 10*3/uL 4.1-10.5 [facility] Lymphocytes Auto (Bld) [#/Vo l]Ordered By: Swathi Burnham on 02-05-2024 Lymphocytes (Bld) [#/Vol] 1.3 10*3/uL 1.00-4.8 [facility] Lymphocytes/100 WBC Auto (Bl d)Ordered By: Swathi Burnham on 02-05-2024 Lymphocytes/100 WBC (Bld) 14.7 % . [facility] MCH Auto (RBC) [Entitic mass ]Ordered By: Swathi Burnham on 02-05-2024 MCH (RBC) [Entitic mass] 26.6 pg 27.5-35.2 [facility] MCHC Auto (RBC) [Mass/Vol]Or dered By: Swathi Burnham on 02-05-2024 MCHC (RBC) [Mass/Vol] 33.4 g/dL 32.5-35.6 [facility] MCV Auto (RBC) [Entitic vol] Ordered By: Swathi Burnham on 02-05-2024 MCV (RBC) [Entitic vol] 79.6 fL 83.5-101 [facility] Monocytes Auto (Bld) [#/Vol] Ordered By: Swathi Burnham on 02-05-2024 Monocytes (Bld) [#/Vol] 0.5 10*3/uL 0.0-0.8 [facility] Monocytes/100 WBC Auto (Bld) Ordered By: Swathi Burnham on 02-05-2024 Monocytes/100 WBC (Bld) 6.1 % . [facility] Neutrophils Auto (Bld) [#/Vo l]Ordered By: Swathi Burnham on 02-05-2024 Neutrophils (Bld) [#/Vol] 6.6 10*3/uL 1.8-7.7 [facility] Neutrophils/100 WBC Auto (Bl d)Ordered By: Swathi Burnham on 02-05-2024 Neutrophils/100 WBC (Bld) 73.6 % . [facility] No Panel InformationOrdered By: Swathi Burnham on 02-05-2024 Bedside Glucose Comment Glu2: cleaned meter [facility] No Panel InformationOrdered By: Farhan Hudson on 02-05-2024 Estimated GFR (CKD-EPI) 25.531 mL/Min [facility] Creatinine Clearance (Chem 30.17 [facility] Nucleated erythrocytes [Pres ence] in Blood by Automated countOrdered By: Swathi Burnham on 02-05-2024 Nucleated RBC Auto Ql (Bld) 0.0 /100{WBC} 0-0.5 [facility] Phosphate [Mass/volume] in S mary or PlasmaOrdered By: Farhan Hudson on 02-05-2024 Phosphate [Mass/Vol] 3.9 mg/dL 2.5-4.5 [facility] Platelet mean volume Auto (B ld) [Entitic vol]Ordered By: Swathi Burnham on 02-05-2024 Platelet mean volume (Bld) [Entitic vol] 7.2 fL 6.6-10.1 [facility] Platelets Auto (Bld) [#/Vol] Ordered By: Swathi Burnham on 02-05-2024 Platelets (Bld) [#/Vol] 180 10*3/uL 150-450 [facility] Potassium [Moles/volume] in Serum or PlasmaOrdered By: Farhan Hudson on 02-05-2024 Potassium [Moles/Vol] 3.7 mmol/L 3.5-5.1 [facility] RBC Auto (Bld) [#/Vol]Ordere d By: Swathi Burnham on 02-05-2024 RBC (Bld) [#/Vol] 2.84 10*6/uL 3.90-5.60 [facility] Renal Function Panelon 02-04 Albumin [Mass/Vol] 2.4 g/dL Low 3.5-5.7 [facility] Comment on above: Performed By: #### G LULS #### Point of Care testing , Anion gap [Moles/Vol] 11.1 mmol/L Normal 6.0-15.0 [facility] Comment on above: Performed By: #### G LULS #### Point of Care testing , Calcium [Mass/Vol] 7.0 mg/dL Low 8.6-10.3 [facility] Comment on above: Performed By: #### G LULS #### Point of Care testing , Chloride [Moles/Vol] 95 mmol/L Low 98-107 [facility] Comment on above: Performed By: #### G LULS #### Point of Care testing , CO2 [Moles/Vol] 27.6 mmol/L Normal 21.0-31.0 [facility] Comment on above: Performed By: #### G EANLS #### Point of Care testing , Creatinine [Mass/Vol] 2.63 mg/dL Significan t change up 0.70-1.30 [facility] Comment on above: Performed By: #### G EANLS #### Point of Care testing , Creatinine Clr Calc Pharmacy 30.17 [facility] Comment on above: Result Comment: PERF ORMED BY: [facility] [address] [place] [address] PATHOLOGIST CUSTOMER SALES SERVICE MANAGER RAFA BYRNE M.D. Performed By: #### G EANLS #### Point of Care testing , GFR/1.73 sq M.predicted MDRD (S/P/Bld) [Vol rate/Area] 25.531 mL/min/{1.73_m2} Normal [facility] Comment on above: Performed By: #### G EANLS #### Point of Care testing , Glucose [Mass/Vol] 162 mg/dL High 70-100 [facility] Comment on above: Result Comment: [facility] Glucose Reference Range is dependent on time and content of last meal. Glucose of more than 200 mg/dL in a nonstressed, ambulatory subject supports the diagnosis of Diabetes Mellitus. ADA recommended reference range Performed By: #### G EANLS #### Point of Care testing , Phosphate [Mass/Vol] 3.9 mg/dL Normal 2.5-4.5 [facility] Comment on above: Performed By: #### G EANLS #### Point of Care testing , Potassium [Moles/Vol] 3.7 mmol/L Normal 3.5-5.1 [facility] Comment on above: Performed By: #### G EANLS #### Point of Care testing , Sodium [Moles/Vol] 130 mmol/L Low 136-145 [facility] Comment on above: Performed By: #### G EANLS #### Point of Care testing , Urea nitrogen [Mass/Vol] 35 mg/dL High 7-25 [facility] Comment on above: Performed By: #### G LULS #### Point of Care testing , Serum or plasma anion gap de terminationOrdered By: Farhan Hudson on 02-05-2024 Anion gap [Moles/Vol] 11.1 mmol/L 6.0-15.0 [facility] Sodium [Moles/volume] in Ser um or PlasmaOrdered By: Farhan Hudson on 02-05-2024 Sodium [Moles/Vol] 130 mmol/L 136-145 [facility] Urea nitrogen [Mass/volume] in Serum or PlasmaOrdered By: Farhan Hudson on 02-05-2024 Urea nitrogen [Mass/Vol] 35 mg/dL 7-25 [facility] WBC Auto (Bld) [#/Vol]Ordere d By: Swathi Burnham on 02-05-2024 WBC (Bld) [#/Vol] 8.9 10*3/uL 4.1-10.5 [facility] Glucose Poct Glucometerson 0 02-04-2024 Glucose [Mass/Vol] 268 mg/dL Normal [facility] Comment on above: Result Comment: [facility] Glucose Reference Range is dependent on time and content of last meal. Glucose of more than 200 mg/dL in a nonstressed, ambulatory subject supports the diagnosis of Diabetes Mellitus. PERFORMED BY: [place] [id number] PATHOLOGIST CUSTOMER SALES SERVICE MANAGER RAFA BYRNE M.D. Performed By: #### C BC, BMP #### [address] Commemt1 Glu2: Cleaned Meter Normal [facility] Comment on above: Result Comment: PERF ORMED BY: [place] [id number] PATHOLOGIST CUSTOMER SALES SERVICE MANAGER RAFA BYRNE M.D. Performed By: #### G LULS #### Point of Care testing , Glucose [Mass/Vol] 114 mg/dL Normal [facility] Comment on above: Result Comment: [place] Glucose Reference Range is dependent on time and content of last meal. Glucose of more than 200 mg/dL in a nonstressed, ambulatory subject supports the diagnosis of Diabetes Mellitus. Performed By: #### G LULS #### Point of Care testing , Commemt1 Glu2: Cleaned Meter Normal [facility] Comment on above: Result Comment: PERF ORMED BY: [address] [place] [address] PATHOLOGIST CUSTOMER SALES SERVICE MANAGER RAFA BYRNE M.D. Performed By: #### G LULS #### Point of Care testing , Glucose [Mass/Vol] 188 mg/dL Normal [facility] Comment on above: Result Comment: [facility] Glucose Reference Range is dependent on time and content of last meal. Glucose of more than 200 mg/dL in a nonstressed, ambulatory subject supports the diagnosis of Diabetes Mellitus. Performed By: #### G LULS #### Point of Care testing , Renal Function Panelon 02-03 Albumin [Mass/Vol] 2.5 g/dL Low 3.5-5.7 [facility] Comment on above: Performed By: #### H H #### [facility] [address] [place] [address] Anion gap [Moles/Vol] 13.0 mmol/L Normal 6.0-15.0 [facility] Comment on above: Performed By: #### H H #### [facility] [address] [place] [address] [place] Calcium [Mass/Vol] 7.4 mg/dL Low 8.6-10.3 [facility] Comment on above: Performed By: #### H H #### [facility] [address] [place] [address] [place] Chloride [Moles/Vol] 93 mmol/L Low 98-107 [facility] Comment on above: Performed By: #### H H #### [facility] [address] [place] [address] [place] CO2 [Moles/Vol] 27.9 mmol/L Normal 21.0-31.0 [facility] Comment on above: Performed By: #### H H #### [address] [address] [place] Creatinine [Mass/Vol] 3.41 mg/dL Significan t change up 0.70-1.30 [facility] Comment on above: Performed By: #### H H #### [address] Creatinine Clr Calc Pharmacy 23.27 Normal [facility] Comment on above: Result Comment: PERF ORMED BY: [place] [id number] PATHOLOGIST CUSTOMER SALES SERVICE MANAGER RAFA BYRNE M.D. Performed By: #### H H #### [address] GFR/1.73 sq M.predicted MDRD (S/P/Bld) [Vol rate/Area] 18.694 mL/min/{1.73_m2} Normal [facility] Comment on above: Performed By: #### H H #### [address] Glucose [Mass/Vol] 164 mg/dL High 70-100 [facility] Comment on above: Result Comment: [facility] Glucose Reference Range is dependent on time and content of last meal. Glucose of more than 200 mg/dL in a nonstressed, ambulatory subject supports the diagnosis of Diabetes Mellitus. ADA recommended reference range Performed By: #### H H #### [place] [address] [place] Phosphate [Mass/Vol] 5.6 mg/dL High 2.5-4.5 [facility] Comment on above: Performed By: #### H H #### [place] [address] [place] Potassium [Moles/Vol] 3.9 mmol/L Normal 3.5-5.1 [facility] Comment on above: Performed By: #### H H #### [address] Sodium [Moles/Vol] 130 mmol/L Low 136-145 [facility] Comment on above: Performed By: #### H H #### [address] Urea nitrogen [Mass/Vol] 50 mg/dL High 7 [facility] Comment on above: Performed By: #### H H #### [address] Alanine aminotransferase [En zymatic activity/volume] in Serum or PlasmaOrdered By: Farhan Hudson on 02-03-2024 ALT [Catalytic activity/Vol] 14 U/L 7-52 [facility] Alkaline phosphatase [Enzyma tic activity/volume] in Serum or PlasmaOrdered By: Farhan Hudson on 02-03-2024 ALP [Catalytic activity/Vol] 157 U/L 34-104 [facility] Aspartate aminotransferase [ Enzymatic activity/volume] in Serum or PlasmaOrdered By: Farhan Hudson on 02-03-2024 AST [Catalytic activity/Vol] 15 U/L 13-39 [facility] Bilirubin.direct [Mass/volum e] in Serum or PlasmaOrdered By: Farhan Hudson on 02-03-2024 Bilirubin.direct [Mass/Vol] 0.20 mg/dL 0.03-0.18 [facility] Bilirubin.total [Mass/volume ] in Serum or PlasmaOrdered By: Farhan Hudson on 02-03-2024 Bilirubin [Mass/Vol] 0.6 mg/dL 0.3-1.0 [facility] Complete Blood Count Auto Di ffon 02-03-2024 Basophils (Bld) [#/Vol] 0.1 10*3/uL Normal 0.0-0.2 [facility] Comment on above: Result Comment: PERF ORMED BY: [place] [id number] PATHOLOGIST CUSTOMER SALES SERVICE MANAGER RAFA BYRNE M.D. Performed By: #### C MAHAD BMP #### [place] [address] [place] Basophils/100 WBC (Bld) 1.2 % Normal . [facility] Comment on above: Performed By: #### C MAHAD BMP #### [place] [address] [place] Eosinophils (Bld) [#/Vol] 0.4 10*3/uL Normal 0.0-0.45 [facility] Comment on above: Performed By: #### C BC, BMP #### [address] Eosinophils/100 WBC (Bld) 4.3 % Normal . [facility] Comment on above: Performed By: #### C BC, BMP #### [address] Erythrocyte distribution width (RBC) [Ratio] 17.4 % High 12.0-14.8 [facility] Comment on above: Performed By: #### C BC, BMP #### [address] Hematocrit (Bld) [Volume fraction] 24.7 % Low 38.8-50.0 [facility] Comment on above: Performed By: #### C BC, BMP #### [address] Hemoglobin (Bld) [Mass/Vol] 8.3 g/dL Low 13.0-17.0 [facility] Comment on above: Performed By: #### C BC, BMP #### [address] Lymphocytes (Bld) [#/Vol] 1.7 10*3/uL Normal 1.00-4.8 [facility] Comment on above: Performed By: #### C BC, BMP #### [address] Lymphocytes/100 WBC (Bld) 17.0 % Normal . [facility] Comment on above: Performed By: #### C BC, BMP #### [address] MCH (RBC) [Entitic mass] 26.8 pg Low 27.5-35.2 [facility] Comment on above: Performed By: #### C BC, BMP #### [address] MCV (RBC) [Entitic vol] 79.7 fL Low 83.5-101 [facility] Comment on above: Performed By: #### C BC, BMP #### [facility] [address] Mean Corpuscular HGB Conc 33.6 g/dL Normal 32.5-35.6 [facility] Comment on above: Performed By: #### C BC, BMP #### [address] Monocytes (Bld) [#/Vol] 0.5 10*3/uL Normal 0.0-0.8 [facility] Comment on above: Performed By: #### C BC, BMP #### [address] Monocytes/100 WBC (Bld) 5.3 % Normal . [facility] Comment on above: Performed By: #### C BC, BMP #### [address] Neutrophils (Bld) [#/Vol] 7.3 10*3/uL Normal 1.8-7.7 [facility] Comment on above: Performed By: #### C MAHAD, BMP #### [address] Neutrophils/100 WBC (Bld) 72.2 % Normal . [facility] Comment on above: Performed By: #### C BC, BMP #### [address] NRBC% 0.1 /100{WBC} Normal 0-0.5 [facility] Comment on above: Performed By: #### C BC, BMP #### [address] Platelet mean volume (Bld) [Entitic vol] 7.1 fL Normal 6.6-10.1 [facility] Comment on above: Performed By: #### C BC, BMP #### [address] Platelets (Bld) [#/Vol] 228 10*3/uL Normal 150-450 [facility] Comment on above: Performed By: #### C BC, BMP #### [facility] [address] RBC (Bld) [#/Vol] 3.10 10*6/uL Low 3.90-5.60 [facility] Comment on above: Performed By: #### C BC, BMP #### [facility] [address] WBC (Bld) [#/Vol] 10.1 10*3/uL Normal 4.1-10.5 [facility] Comment on above: Performed By: #### C BC, BMP #### [facility] [address] Ferritinon 02-03-2024 Ferritin [Mass/Vol] 208.4 ng/mL Normal 23.9-336.2 [facility] Comment on above: Performed By: #### C BC, BMP #### [facility] [address] Ferritin [Mass/volume] in Se rum or PlasmaOrdered By: Farhan Hudson on 02-03-2024 Ferritin [Mass/Vol] 208.4 ng/mL 23.9-336.2 [facility] Folate [Mass/volume] in Seru m or PlasmaOrdered By: Farhan Hudson on 02-03-2024 Folate [Mass/Vol] 9.7 ng/mL >5.9 [facility] Comment on above: Folate reference ran ge: >5.9 ng/mlThe WHO technical consultation on folate and vitamin [id number] has determined that folate concentrations lessthan 4 ng/ml are considered deficient. Globulin Calc (S) [Mass/Vol] Ordered By: Farhan Hudson on 02-03-2024 Globulin (S) [Mass/Vol] 3.7 g/dL [facility] Glucose Poct Glucometerson 0 02-03-2024 Glucose [Mass/Vol] 190 mg/dL Normal [facility] Comment on above: Result Comment: [place] Glucose Reference Range is dependent on time and content of last meal. Glucose of more than 200 mg/dL in a nonstressed, ambulatory subject supports the diagnosis of Diabetes Mellitus. PERFORMED BY: [place] [id number] PATHOLOGIST CUSTOMER SALES SERVICE MANAGER RAFA BYREN M.D. Performed By: #### G LULS #### Point of Care testing , Glucose [Mass/Vol] 235 mg/dL Normal [facility] Comment on above: Result Comment: [place] Glucose Reference Range is dependent on time and content of last meal. Glucose of more than 200 mg/dL in a nonstressed, ambulatory subject supports the diagnosis of Diabetes Mellitus. PERFORMED BY: [place] [id number] PATHOLOGIST CUSTOMER SALES SERVICE MANAGER RAFA BYRNE M.D. Performed By: #### C BC, BMP #### [address] Glucose [Mass/Vol] 262 mg/dL Normal [facility] Comment on above: Result Comment: [facility] Glucose Reference Range is dependent on time and content of last meal. Glucose of more than 200 mg/dL in a nonstressed, ambulatory subject supports the diagnosis of Diabetes Mellitus. PERFORMED BY: [place] [id number] PATHOLOGIST CUSTOMER SALES SERVICE MANAGER RAFA BYRNE M.D. Performed By: #### G LULS #### Point of Care testing , Glucose [Mass/Vol] 218 mg/dL Normal [facility] Comment on above: Result Comment: [facility] Glucose Reference Range is dependent on time and content of last meal. Glucose of more than 200 mg/dL in a nonstressed, ambulatory subject supports the diagnosis of Diabetes Mellitus. PERFORMED BY: [place] [id number] PATHOLOGIST CUSTOMER SALES SERVICE MANAGER RAFA BYRNE M.D. Performed By: #### G LULS #### Point of Care testing , Hepatic Panelon 02-03-2024 Albumin [Mass/Vol] 2.4 g/dL Low 3.5-5.7 [facility] Comment on above: Performed By: #### C BC, BMP #### [address] Albumin/Globulin [Mass ratio] 0.6 {ratio} Normal [facility] Comment on above: Performed By: #### C BC, BMP #### [address] ALP [Catalytic activity/Vol] 157 U/L High 34-104 [facility] Comment on above: Performed By: #### C BC, BMP #### [address] ALT [Catalytic activity/Vol] 14 U/L Normal 7-52 [facility] Comment on above: Performed By: #### C BC, BMP #### [address] AST [Catalytic activity/Vol] 15 U/L Normal 13-39 [facility] Comment on above: Performed By: #### C BC, BMP #### [address] Bilirubin [Mass/Vol] 0.6 mg/dL Normal 0.3-1.0 [facility] Comment on above: Performed By: #### C BC, BMP #### [address] Bilirubin,Indirect 0.4 mg/dL Normal [facility] Comment on above: Performed By: #### C BC, BMP #### [address] Bilirubin.indirect [Mass/Vol] 0.20 mg/dL High 0.03-0.18 [facility] Comment on above: Performed By: #### C BC, BMP #### [address] Globulin (S) [Mass/Vol] 3.7 g/dL Normal [facility] Comment on above: Performed By: #### C BC, BMP #### [address] Protein [Mass/Vol] 6.1 g/dL Low 6.4-8.9 [facility] Comment on above: Performed By: #### C BC, BMP #### [facility] [address] [place] [address] [place] Iron [Mass/volume] in Serum or PlasmaOrdered By: Farhan Hudson on 02-03-2024 Iron [Mass/Vol] 169 ug/dL 50-212 [facility] Iron and TIBC Profileon 01-17 7 % Iron Saturation 87.6 % High 20-50 [facility] Comment on above: Performed By: #### C BC, BMP #### [facility] [address] [place] [address] [facility] Iron [Mass/Vol] 169 ug/dL Normal 50-212 [facility] Comment on above: Performed By: #### C BC, BMP #### [facility] [address] [place] [address] [facility] Total Iron Binding Capacity 193 ug/dL Low 255-450 [facility] Comment on above: Performed By: #### C BC, BMP #### [facility] [address] [place] [address] [facility] Transferrin [Mass/Vol] 138 mg/dL Low 203-362 [facility] Comment on above: Performed By: #### C BC, BMP #### [facility] [address] [place] [id number] [facility] Iron binding capacity [Mass/ volume] in Serum or PlasmaOrdered By: Farhan Hudson on 02-03-2024 Iron binding capacity [Mass/Vol] 193 ug/dL 255-450 [facility] Iron saturation [Mass Fracti on] in Serum or PlasmaOrdered By: Farhan Hudson on 02-03-2024 Iron saturation [Mass fraction] 87.6 % 20-50 [facility] Protein [Mass/volume] in Ser um or PlasmaOrdered By: Farhan Hudson on 02-03-2024 Protein [Mass/Vol] 6.1 g/dL 6.4-8.9 [facility] Renal Function Panelon 02-02 Anion gap [Moles/Vol] 10.2 mmol/L Normal 6.0-15.0 [facility] Comment on above: Performed By: #### C BC, BMP #### [facility] [address] [place] [address] [place] Calcium [Mass/Vol] 7.1 mg/dL Low 8.6-10.3 [facility] Comment on above: Performed By: #### C BC, BMP #### [facility] [address] [place] [address] [place] Chloride [Moles/Vol] 95 mmol/L Low 98-107 [facility] Comment on above: Performed By: #### C BC, BMP #### [facility] [address] [place] [address] [place] CO2 [Moles/Vol] 28.8 mmol/L Normal 21.0-31.0 [facility] Comment on above: Performed By: #### C BC, BMP #### [facility] [address] [place] [address] [place] Creatinine [Mass/Vol] 2.87 mg/dL Significan t change up 0.70-1.30 [facility] Comment on above: Performed By: #### C BC, BMP #### [facility] [address] [place] [address] [place] Creatinine Clr Calc Pharmacy 27.45 [facility] Comment on above: Performed By: #### C BC, BMP #### [facility] [address] [place] [address] [place] GFR/1.73 sq M.predicted MDRD (S/P/Bld) [Vol rate/Area] 22.991 mL/min/{1.73_m2} [facility] Comment on above: Performed By: #### C BC, BMP #### [facility] [address] [place] [address] [place] Glucose [Mass/Vol] 157 mg/dL High 70-100 [facility] Comment on above: Result Comment: [place] Glucose Reference Range is dependent on time and content of last meal. Glucose of more than 200 mg/dL in a nonstressed, ambulatory subject supports the diagnosis of Diabetes Mellitus. ADA recommended reference range Performed By: #### C BC, BMP #### [facility] [address] Phosphate [Mass/Vol] 5.0 mg/dL High 2.5-4.5 [facility] Comment on above: Performed By: #### C BC, BMP #### [facility] [address] Potassium [Moles/Vol] 4.0 mmol/L Normal 3.5-5.1 [facility] Comment on above: Performed By: #### C BC, BMP #### [facility] [address] Sodium [Moles/Vol] 130 mmol/L Low 136-145 [facility] Comment on above: Performed By: #### C BC, BMP #### [facility] [address] Urea nitrogen [Mass/Vol] 36 mg/dL High 7-25 [facility] Comment on above: Performed By: #### C MAHAD, BMP #### [facility] [address] Serum or plasma albumin/glob ulin mass ratioOrdered By: Farhan Hudson on 02-03-2024 Albumin/Globulin [Mass ratio] 0.6 {ratio} [facility] Serum or plasma non-glucuron idated bilirubin measurement (mass/volume)Ordered By: Farhan Hudson on 02-03-2024 Bilirubin.indirect [Mass/Vol] 0.4 mg/dL [facility] Transferrin [Mass/volume] in Serum or PlasmaOrdered By: Farhan Hudson on 02-03-2024 Transferrin [Mass/Vol] 138 mg/dL 203-362 [facility] Vit. B12/Folate Profileon Cobalamin (Vitamin B12) [Mass/Vol] 1412 pg/mL High 180-914 [facility] Comment on above: Performed By: #### C BC, BMP #### [facility] [address] [place] [id number] [facility] Folate 9.7 ng/mL Normal >5.9 [facility] Comment on above: Result Comment: Karen te reference range: >5.9 ng/ml The WHO technical consultation on folate and vitamin b12 deficiencies has determined that folate concentrations less than 4 ng/ml are considered deficient. PERFORMED BY: [place] [id number] PATHOLOGIST CUSTOMER SALES SERVICE MANAGER RAFA BYRNE M.D. Performed By: #### C BC, BMP #### [facility] [address] [place] [address] Vitamin B12 ser/plasOrdered By: Farhan Hudson on 02-03-2024 Cobalamin (Vitamin B12) [Mass/Vol] 1412 pg/mL 180-914 [facility] Basic Metabolic Panelon 01-17 Anion gap [Moles/Vol] 13.4 mmol/L Normal 6.0-15.0 [facility] Comment on above: Performed By: #### P P #### [facility] [address] [place] [address] Calcium [Mass/Vol] 7.4 mg/dL Low 8.6-10.3 [facility] Comment on above: Performed By: #### P P #### [facility] [address] [place] [address] Chloride [Moles/Vol] 93 mmol/L Low 98-107 [facility] Comment on above: Performed By: #### P P #### [facility] [address] [place] [address] CO2 [Moles/Vol] 25.7 mmol/L Normal 21.0-31.0 [facility] Comment on above: Performed By: #### P P #### [facility] [address] [place] [address] Creatinine [Mass/Vol] 3.82 mg/dL Significan t change up 0.70-1.30 [facility] Comment on above: Performed By: #### P P #### [facility] [address] [place] [address] Creatinine Clr Calc Pharmacy 20.81 Normal [facility] Comment on above: Result Comment: PERF ORMED BY: [facility] [address] [place] [address] PATHOLOGIST CUSTOMER SALES SERVICE MANAGER RAAF BYRNE M.D. Performed By: #### P P #### [facility] [address] [place] [address] [place] GFR/1.73 sq M.predicted MDRD (S/P/Bld) [Vol rate/Area] 16.313 mL/min/{1.73_m2} Normal [facility] Comment on above: Performed By: #### P P #### [facility] [address] Glucose [Mass/Vol] 168 mg/dL High 70-100 [facility] Comment on above: Result Comment: [facility] Glucose Reference Range is dependent on time and content of last meal. Glucose of more than 200 mg/dL in a nonstressed, ambulatory subject supports the diagnosis of Diabetes Mellitus. ADA recommended reference range Performed By: #### P P #### [facility] [address] Potassium [Moles/Vol] 4.1 mmol/L Normal 3.5-5.1 [facility] Comment on above: Performed By: #### P P #### [facility] [address] Sodium [Moles/Vol] 128 mmol/L Low 136-145 [facility] Comment on above: Performed By: #### P P #### [facility] [address] Urea nitrogen [Mass/Vol] 51 mg/dL High 7-25 [facility] Comment on above: Performed By: #### P P #### [facility] [address] Complete Blood Count Auto Di ffon 02-02-2024 Basophils (Bld) [#/Vol] 0.1 10*3/uL Normal 0.0-0.2 [facility] Comment on above: Result Comment: PERF ORMED BY: [facility] [address] [place] [address] PATHOLOGIST CUSTOMER SALES SERVICE MANAGER RAFA BYRNE M.D. Performed By: #### P P #### [address] Basophils/100 WBC (Bld) 1.0 % Normal . [facility] Comment on above: Performed By: #### P P #### [address] Eosinophils (Bld) [#/Vol] 0.4 10*3/uL Normal 0.0-0.45 [facility] Comment on above: Performed By: #### P P #### [address] Eosinophils/100 WBC (Bld) 3.1 % Normal . [facility] Comment on above: Performed By: #### P P #### [address] Erythrocyte distribution width (RBC) [Ratio] 17.3 % High 12.0-14.8 [facility] Comment on above: Performed By: #### P P #### [address] Hematocrit (Bld) [Volume fraction] 26.9 % Low 38.8-50.0 [facility] Comment on above: Performed By: #### P P #### [address] Hemoglobin (Bld) [Mass/Vol] 8.8 g/dL Low 13.0-17.0 [facility] Comment on above: Performed By: #### P P #### [address] Lymphocytes (Bld) [#/Vol] 1.8 10*3/uL Normal 1.00-4.8 [facility] Comment on above: Performed By: #### P P #### [address] Lymphocytes/100 WBC (Bld) 14.8 % Normal . [facility] Comment on above: Performed By: #### P P #### [address] MCH (RBC) [Entitic mass] 26.1 pg Low 27.5-35.2 [facility] Comment on above: Performed By: #### P P #### [address] MCV (RBC) [Entitic vol] 79.6 fL Low 83.5-101 [facility] Comment on above: Performed By: #### P P #### [address] Mean Corpuscular HGB Conc 32.8 g/dL Normal 32.5-35.6 [facility] Comment on above: Performed By: #### P P #### [address] Monocytes (Bld) [#/Vol] 0.6 10*3/uL Normal 0.0-0.8 [facility] Comment on above: Performed By: #### P P #### [address] Monocytes/100 WBC (Bld) 5.2 % Normal . [facility] Comment on above: Performed By: #### P P #### [address] Neutrophils (Bld) [#/Vol] 9.4 10*3/uL High 1.8-7.7 [facility] Comment on above: Performed By: #### P P #### [address] Neutrophils/100 WBC (Bld) 75.9 % Normal . [facility] Comment on above: Performed By: #### P P #### [address] NRBC% 0.0 /100{WBC} Normal 0-0.5 [facility] Comment on above: Performed By: #### P P #### [address] Platelet mean volume (Bld) [Entitic vol] 7.2 fL Normal 6.6-10.1 [facility] Comment on above: Performed By: #### P P #### [facility] [address] [place] [address] [place] Platelets (Bld) [#/Vol] 276 10*3/uL Normal 150-450 [facility] Comment on above: Performed By: #### P P #### [facility] [address] RBC (Bld) [#/Vol] 3.37 10*6/uL Low 3.90-5.60 [facility] Comment on above: Performed By: #### P P #### [facility] [address] WBC (Bld) [#/Vol] 12.4 10*3/uL High 4.1-10.5 [facility] Comment on above: Performed By: #### P P #### [facility] [address] Glucose Poct Glucometerson 0 02-02-2024 Glucose [Mass/Vol] 190 mg/dL Normal [facility] Comment on above: Result Comment: [place] om Glucose Reference Range is dependent on time and content of last meal. Glucose of more than 200 mg/dL in a nonstressed, ambulatory subject supports the diagnosis of Diabetes Mellitus. PERFORMED BY: [place] [id number] PATHOLOGIST CUSTOMER SALES SERVICE MANAGER RAFA BYRNE M.D. Performed By: #### G LULS #### Point of Care testing , Commemt1 Glu2: Cleaned Meter Normal [facility] Comment on above: Result Comment: PERF ORMED BY: [place] [id number] PATHOLOGIST CUSTOMER SALES SERVICE MANAGER RAFA BYRNE M.D. Performed By: #### G LULS #### Point of Care testing , Glucose [Mass/Vol] 164 mg/dL Normal [facility] Comment on above: Result Comment: [place] Glucose Reference Range is dependent on time and content of last meal. Glucose of more than 200 mg/dL in a nonstressed, ambulatory subject supports the diagnosis of Diabetes Mellitus. Performed By: #### G LULS #### Point of Care testing , Commemt1 Glu2: Cleaned Meter Normal [facility] Comment on above: Result Comment: PERF ORMED BY: [address] [place] [address] PATHOLOGIST CUSTOMER SALES SERVICE MANAGER RAFA BYRNE M.D. Performed By: #### G LULS #### Point of Care testing , Glucose [Mass/Vol] 178 mg/dL Normal [facility] Comment on above: Result Comment: [facility] Glucose Reference Range is dependent on [...] aPTT Coag (PPP) [Time] 36.7 s 25.1-36.5 [facility] Comment on above: A hematocrit value g reater than 55% may lead to inaccurate results in coagulation testing. Patients having hematocrit values >55% require a special collection tube for coagulation studies. Please contact the laboratory at [phone] for redraw instructions. Basic Metabolic Panelon 01-17 Anion gap [Moles/Vol] 13.6 mmol/L Normal 6.0-15.0 [facility] Comment on above: Performed By: #### P P #### [facility] [address] [place] [address] [place] Calcium [Mass/Vol] 7.0 mg/dL Low 8.6-10.3 [facility] Comment on above: Performed By: #### P P #### [facility] [address] [place] [address] [place] Chloride [Moles/Vol] 96 mmol/L Low 98-107 [facility] Comment on above: Performed By: #### P P #### [facility] [address] [place] [address] [place] CO2 [Moles/Vol] 27.5 mmol/L Normal 21.0-31.0 [facility] Comment on above: Performed By: #### P P #### [address] Creatinine [Mass/Vol] 2.98 mg/dL High 0.70-1.30 [facility] Comment on above: Performed By: #### P P #### [place] [address] [place] Creatinine Clr Calc Pharmacy 26.53 [facility] Comment on above: Result Comment: PERF ORMED BY: [place] [id number] PATHOLOGIST CUSTOMER SALES SERVICE MANAGER RAFA BYRNE M.D. Performed By: #### P P #### [address] GFR/1.73 sq M.predicted MDRD (S/P/Bld) [Vol rate/Area] 21.976 mL/min/{1.73_m2} Normal [facility] Comment on above: Performed By: #### P P #### [address] Glucose [Mass/Vol] 169 mg/dL High 70-100 [facility] Comment on above: Result Comment: [place] Glucose Reference Range is dependent on time and content of last meal. Glucose of more than 200 mg/dL in a nonstressed, ambulatory subject supports the diagnosis of Diabetes Mellitus. ADA recommended reference range Performed By: #### P P #### [address] Potassium [Moles/Vol] 4.1 mmol/L Normal 3.5-5.1 [facility] Comment on above: Performed By: #### P P #### [address] Sodium [Moles/Vol] 133 mmol/L Low 136-145 [facility] Comment on above: Performed By: #### P P #### [address] Urea nitrogen [Mass/Vol] 35 mg/dL High 7-25 [facility] Comment on above: Performed By: #### P P #### [address] Coagulation Profileon 2023 aPTT Coag (Bld) [Time] 36.7 s High 25.1-36.5 [facility] Comment on above: Result Comment: A he matocrit value greater than 55% may lead to inaccurate results in coagulation testing. Patients having hematocrit values >55% require a special collection tube for coagulation studies. Please contact the laboratory at [phone] for redraw instructions. PERFORMED BY: [place] [id number] PATHOLOGIST CUSTOMER SALES SERVICE MANAGER RAFA BYRNE M.D. Performed By: #### P P #### [address] Complete Blood Count Auto Di ffon 02-01-2024 Basophils (Bld) [#/Vol] 0.1 10*3/uL Normal 0.0-0.2 [facility] Comment on above: Result Comment: PERF ORMED BY: [place] [id number] PATHOLOGIST CUSTOMER SALES SERVICE MANAGER RAFA BYRNE M.D. Performed By: #### P P #### [place] [address] [place] Basophils/100 WBC (Bld) 0.9 % Normal . [facility] Comment on above: Performed By: #### P P #### [place] [address] [place] Eosinophils (Bld) [#/Vol] 0.2 10*3/uL Normal 0.0-0.45 [facility] Comment on above: Performed By: #### P P #### [place] [address] [place] Eosinophils/100 WBC (Bld) 2.0 % Normal . [facility] Comment on above: Performed By: #### P P #### [address] Erythrocyte distribution width (RBC) [Ratio] 17.2 % High 12.0-14.8 [facility] Comment on above: Performed By: #### P P #### [address] Hematocrit (Bld) [Volume fraction] 25.7 % Low 38.8-50.0 [facility] Comment on above: Performed By: #### P P #### [address] Hemoglobin (Bld) [Mass/Vol] 8.7 g/dL Low 13.0-17.0 [facility] Comment on above: Performed By: #### P P #### [address] Lymphocytes (Bld) [#/Vol] 1.2 10*3/uL Normal 1.00-4.8 [facility] Comment on above: Performed By: #### P P #### [address] Lymphocytes/100 WBC (Bld) 10.2 % Normal . [facility] Comment on above: Performed By: #### P P #### [address] MCH (RBC) [Entitic mass] 26.8 pg Low 27.5-35.2 [facility] Comment on above: Performed By: #### P P #### [address] MCV (RBC) [Entitic vol] 79.4 fL Low 83.5-101 [facility] Comment on above: Performed By: #### P P #### [address] Mean Corpuscular HGB Conc 33.8 g/dL Normal 32.5-35.6 [facility] Comment on above: Performed By: #### P P #### [address] Monocytes (Bld) [#/Vol] 0.6 10*3/uL Normal 0.0-0.8 [facility] Comment on above: Performed By: #### P P #### [facility] [address] Monocytes/100 WBC (Bld) 4.9 % Normal . [facility] Comment on above: Performed By: #### P P #### [facility] [address] Neutrophils (Bld) [#/Vol] 9.4 10*3/uL High 1.8-7.7 [facility] Comment on above: Performed By: #### P P #### [address] Neutrophils/100 WBC (Bld) 82.0 % Normal . [facility] Comment on above: Performed By: #### P P #### [address] NRBC% 0.0 /100{WBC} Normal 0-0.5 [facility] Comment on above: Performed By: #### P P #### [address] Platelet mean volume (Bld) [Entitic vol] 7.3 fL Normal 6.6-10.1 [facility] Comment on above: Performed By: #### P P #### [address] Platelets (Bld) [#/Vol] 285 10*3/uL Normal 150-450 [facility] Comment on above: Performed By: #### P P #### [address] RBC (Bld) [#/Vol] 3.24 10*6/uL Low 3.90-5.60 [facility] Comment on above: Performed By: #### P P #### [address] WBC (Bld) [#/Vol] 11.4 10*3/uL High 4.1-10.5 [facility] Comment on above: Performed By: #### P P #### [facility] [address] [place] [address] Glucose Poct Glucometerson 0 02-01-2024 Glucose [Mass/Vol] 222 mg/dL Normal [facility] Comment on above: Result Comment: [place] om Glucose Reference Range is dependent on time and content of last meal. Glucose of more than 200 mg/dL in a nonstressed, ambulatory subject supports the diagnosis of Diabetes Mellitus. PERFORMED BY: [place] [id number] PATHOLOGIST CUSTOMER SALES SERVICE MANAGER RAFA BYRNE M.D. Performed By: #### P P #### [address] Glucose [Mass/Vol] 207 mg/dL Normal [facility] Comment on above: Result Comment: [place] Glucose Reference Range is dependent on time and content of last meal. Glucose of more than 200 mg/dL in a nonstressed, ambulatory subject supports the diagnosis of Diabetes Mellitus. PERFORMED BY: [place] [id number] PATHOLOGIST CUSTOMER SALES SERVICE MANAGER RAFA BYRNE M.D. Performed By: #### G LULS #### Point of Care testing , Glucose [Mass/Vol] 243 mg/dL Normal [facility] Comment on above: Result Comment: [place] Glucose Reference Range is dependent on time and content of last meal. Glucose of more than 200 mg/dL in a nonstressed, ambulatory subject supports the diagnosis of Diabetes Mellitus. PERFORMED BY: [address] [place] [address] PATHOLOGIST CUSTOMER SALES SERVICE MANAGER RAFA BYRNE M.D. Performed By: #### P P #### [address] Glucose [Mass/Vol] 202 mg/dL Normal [facility] Comment on above: Result Comment: [place] om Glucose Reference Range is dependent on time and content of last meal. Glucose of more than 200 mg/dL in a nonstressed, ambulatory subject supports the diagnosis of Diabetes Mellitus. PERFORMED BY: [place] [id number] PATHOLOGIST CUSTOMER SALES SERVICE MANAGER RAFA BYRNE M.D. Performed By: #### G ALVARADO #### Point of Care testing , INR in Platelet poor plasma by Coagulation assayOrdered By: Farhan Hudson on 02-01-2024 INR Coag (PPP) [Relative time] 1.9 {INR} Normal [facility] Comment on above: INR Therapeutic Rang e [...] 4.5 Performed By: #### P P #### [address] Prothrombin time (PT)Ordered By: Farhan Hudson on 02-01-2024 PT Coag (PPP) [Time] 21.5 s High 9.0-12.9 [facility] Comment on above: A hematocrit value g reater than 55% may lead to inaccurate results in coagulation testing. Patients having hematocrit values >55% require a special collection tube for coagulation studies. Please contact the laboratory at [phone] for redraw instructions. Result Comment: A he matocrit value greater than 55% may lead to inaccurate results in coagulation testing. Patients having hematocrit values >55% require a special collection tube for coagulation studies. Please contact the laboratory at [phone] for redraw instructions. Performed By: #### P P #### [address] Basic Metabolic Panelon 01-17 Anion gap [Moles/Vol] 11.9 mmol/L Normal 6.0-15.0 [facility] Comment on above: Performed By: #### C BC, BMP #### [facility] [address] Calcium [Mass/Vol] 7.0 mg/dL Low 8.6-10.3 [facility] Comment on above: Performed By: #### C BC, BMP #### [facility] [address] Chloride [Moles/Vol] 96 mmol/L Low 98-107 [facility] Comment on above: Performed By: #### C BC, BMP #### [facility] [address] CO2 [Moles/Vol] 26.9 mmol/L Normal 21.0-31.0 [facility] Comment on above: Performed By: #### C BC, BMP #### [facility] [address] Creatinine [Mass/Vol] 3.23 mg/dL Significan t change up 0.70-1.30 [facility] Comment on above: Performed By: #### C BC, BMP #### [place] [address] [place] Creatinine Clr Calc Pharmacy 24.52 [facility] Comment on above: Result Comment: PERF ORMED BY: [place] [id number] PATHOLOGIST CUSTOMER SALES SERVICE MANAGER RAFA BYRNE M.D. Performed By: #### C BC, BMP #### [place] [address] [place] GFR/1.73 sq M.predicted MDRD (S/P/Bld) [Vol rate/Area] 19.951 mL/min/{1.73_m2} [facility] Comment on above: Performed By: #### C BC, BMP #### [facility] [address] [place] [address] [place] Glucose [Mass/Vol] 128 mg/dL High 70-100 [facility] Comment on above: Result Comment: [facility] Glucose Reference Range is dependent on time and content of last meal. Glucose of more than 200 mg/dL in a nonstressed, ambulatory subject supports the diagnosis of Diabetes Mellitus. ADA recommended reference range Performed By: #### C BC, BMP #### [facility] [address] Potassium [Moles/Vol] 3.8 mmol/L Normal 3.5-5.1 [facility] Comment on above: Performed By: #### C BC, BMP #### [facility] [address] Sodium [Moles/Vol] 131 mmol/L Low 136-145 [facility] Comment on above: Performed By: #### C BC, BMP #### [facility] [address] Urea nitrogen [Mass/Vol] 46 mg/dL High 7-25 [facility] Comment on above: Performed By: #### C BC, BMP #### [facility] [address] Complete Blood Count Auto Di ffon 01-31-2024 Basophils (Bld) [#/Vol] 0.1 10*3/uL Normal 0.0-0.2 [facility] Comment on above: Result Comment: PERF ORMED BY: [place] [id number] PATHOLOGIST CUSTOMER SALES SERVICE MANAGER RAFA BYRNE M.D. Performed By: #### C BC, BMP #### [facility] [address] [place] [address] [place] Basophils/100 WBC (Bld) 0.7 % Normal . [facility] Comment on above: Performed By: #### C BC, BMP #### [facility] [address] Eosinophils (Bld) [#/Vol] 0.3 10*3/uL Normal 0.0-0.45 [facility] Comment on above: Performed By: #### C BC, BMP #### [facility] [address] Eosinophils/100 WBC (Bld) 2.3 % Normal . [facility] Comment on above: Performed By: #### C BC, BMP #### [facility] [address] Erythrocyte distribution width (RBC) [Ratio] 17.5 % High 12.0-14.8 [facility] Comment on above: Performed By: #### C BC, BMP #### [address] Hematocrit (Bld) [Volume fraction] 25.6 % Low 38.8-50.0 [facility] Comment on above: Performed By: #### C BC, BMP #### [address] Hemoglobin (Bld) [Mass/Vol] 8.6 g/dL Low 13.0-17.0 [facility] Comment on above: Performed By: #### C BC, BMP #### [address] Lymphocytes (Bld) [#/Vol] 1.3 10*3/uL Normal 1.00-4.8 [facility] Comment on above: Performed By: #### C BC, BMP #### [address] Lymphocytes/100 WBC (Bld) 10.4 % Normal . [facility] Comment on above: Performed By: #### C BC, BMP #### [place] [address] [place] MCH (RBC) [Entitic mass] 26.7 pg Low 27.5-35.2 [facility] Comment on above: Performed By: #### C BC, BMP #### [address] MCV (RBC) [Entitic vol] 79.0 fL Low 83.5-101 [facility] Comment on above: Performed By: #### C BC, BMP #### [address] [place] [address] [place] Mean Corpuscular HGB Conc 33.7 g/dL Normal 32.5-35.6 [facility] Comment on above: Performed By: #### C BC, BMP #### [facility] [address] Monocytes (Bld) [#/Vol] 0.6 10*3/uL Normal 0.0-0.8 [facility] Comment on above: Performed By: #### C BC, BMP #### [facility] [address] [place] [address] [place] Monocytes/100 WBC (Bld) 4.9 % Normal . [facility] Comment on above: Performed By: #### C MAHAD, BMP #### [address] Neutrophils (Bld) [#/Vol] 10.0 10*3/uL High 1.8-7.7 [facility] Comment on above: Performed By: #### C BC, BMP #### [address] Neutrophils/100 WBC (Bld) 81.7 % Normal . [facility] Comment on above: Performed By: #### C MAHAD, BMP #### [address] NRBC% 0.0 /100{WBC} Normal 0-0.5 [facility] Comment on above: Performed By: #### C BC, BMP #### [place] [address] [place] Platelet mean volume (Bld) [Entitic vol] 7.2 fL Normal 6.6-10.1 [facility] Comment on above: Performed By: #### C BC, BMP #### [place] [address] [place] Platelets (Bld) [#/Vol] 254 10*3/uL Normal 150-450 [facility] Comment on above: Performed By: #### C BC, BMP #### [place] [address] [place] RBC (Bld) [#/Vol] 3.24 10*6/uL Low 3.90-5.60 [facility] Comment on above: Performed By: #### C BC, BMP #### [facility] [address] WBC (Bld) [#/Vol] 12.2 10*3/uL High 4.1-10.5 [facility] Comment on above: Performed By: #### C BC, BMP #### [facility] [address] Glucose Poct Glucometerson 0 01-31-2024 Glucose [Mass/Vol] 116 mg/dL Normal [facility] Comment on above: Result Comment: [place] om Glucose Reference Range is dependent on time and content of last meal. Glucose of more than 200 mg/dL in a nonstressed, ambulatory subject supports the diagnosis of Diabetes Mellitus. PERFORMED BY: [place] [id number] PATHOLOGIST CUSTOMER SALES SERVICE MANAGER RAFA BYRNE M.D. Performed By: #### P P #### [address] Glucose [Mass/Vol] 191 mg/dL Normal [facility] Comment on above: Result Comment: [place] om Glucose Reference Range is dependent on time and content of last meal. Glucose of more than 200 mg/dL in a nonstressed, ambulatory subject supports the diagnosis of Diabetes Mellitus. PERFORMED BY: [place] [id number] PATHOLOGIST CUSTOMER SALES SERVICE MANAGER RAFA BYRNE M.D. Performed By: #### A BG #### Point of Care testing , Glucose [Mass/Vol] 145 mg/dL Normal [facility] Comment on above: Result Comment: [place] om Glucose Reference Range is dependent on time and content of last meal. Glucose of more than 200 mg/dL in a nonstressed, ambulatory subject supports the diagnosis of Diabetes Mellitus. PERFORMED BY: [place] [id number] PATHOLOGIST CUSTOMER SALES SERVICE MANAGER RAFA BYRNE M.D. Performed By: #### A BG #### Point of Care testing , Albumin Levelon 01-30-2024 Albumin [Mass/Vol] 2.3 g/dL Low 3.5-5.7 [facility] Comment on above: Result Comment: PERF ORMED BY: [facility] [address] [place] [address] PATHOLOGIST CUSTOMER SALES SERVICE MANAGER RAFA BYRNE M.D. Performed By: #### G LULS #### Point of Care testing , Basic Metabolic Panelon 01-17 Anion gap [Moles/Vol] 15.3 mmol/L High 6.0-15.0 [facility] Comment on above: Performed By: #### G LULS #### Point of Care testing , Calcium [Mass/Vol] 7.1 mg/dL Low 8.6-10.3 [facility] Comment on above: Performed By: #### G LULS #### Point of Care testing , Chloride [Moles/Vol] 95 mmol/L Low 98-107 [facility] Comment on above: Performed By: #### G LULS #### Point of Care testing , CO2 [Moles/Vol] 21.9 mmol/L Normal 21.0-31.0 [facility] Comment on above: Performed By: #### G LULS #### Point of Care testing , Creatinine [Mass/Vol] 4.57 mg/dL Significan t change up 0.70-1.30 [facility] Comment on above: Performed By: #### G LULS #### Point of Care testing , Creatinine Clr Calc Pharmacy 17.22 Normal [facility] Comment on above: Result Comment: PERF ORMED BY: [facility] [address] [place] [address] PATHOLOGIST CUSTOMER SALES SERVICE MANAGER RAFA BYRNE M.D. Performed By: #### G LULS #### Point of Care testing , GFR/1.73 sq M.predicted MDRD (S/P/Bld) [Vol rate/Area] 13.156 mL/min/{1.73_m2} Normal [facility] Comment on above: Performed By: #### G LULS #### Point of Care testing , Glucose [Mass/Vol] 144 mg/dL High 70-100 [facility] Comment on above: Result Comment: [facility] Glucose Reference Range is dependent on time and content of last meal. Glucose of more than 200 mg/dL in a nonstressed, ambulatory subject supports the diagnosis of Diabetes Mellitus. ADA recommended reference range Performed By: #### G LULS #### Point of Care testing , Potassium [Moles/Vol] 4.2 mmol/L Significan t change down 3.5-5.1 [facility] Comment on above: Performed By: #### G LULS #### Point of Care testing , Sodium [Moles/Vol] 128 mmol/L Low 136-145 [facility] Comment on above: Performed By: #### G LULS #### Point of Care testing , Urea nitrogen [Mass/Vol] 73 mg/dL Significant change up 7-25 [facility] Comment on above: Performed By: #### G LULS #### Point of Care testing , Complete Blood Count Auto Di ffon 01-30-2024 Basophils (Bld) [#/Vol] 0.1 10*3/uL Normal 0.0-0.2 [facility] Comment on above: Result Comment: PERF ORMED BY: [facility] [address] [place] [address] PATHOLOGIST CUSTOMER SALES SERVICE MANAGER RAFA BYRNE M.D. Performed By: #### G LULS #### Point of Care testing , Basophils/100 WBC (Bld) 1.0 % Normal . [facility] Comment on above: Performed By: #### G LULS #### Point of Care testing , Eosinophils (Bld) [#/Vol] 0.2 10*3/uL Normal 0.0-0.45 [facility] Comment on above: Performed By: #### G LULS #### Point of Care testing , Eosinophils/100 WBC (Bld) 1.7 % Normal . [facility] Comment on above: Performed By: #### G EANLS #### Point of Care testing , Erythrocyte distribution width (RBC) [Ratio] 17.3 % High 12.0-14.8 [facility] Comment on above: Performed By: #### G EANLS #### Point of Care testing , Hematocrit (Bld) [Volume fraction] 26.3 % Low 38.8-50.0 [facility] [facility] Comment on above: Performed By: #### G EANLS #### Point of Care testing , Hemoglobin (Bld) [Mass/Vol] 8.8 g/dL Low 13.0-17.0 [facility] Comment on above: Performed By: #### G EANLS #### Point of Care testing , Lymphocytes (Bld) [#/Vol] 1.3 10*3/uL Normal 1.00-4.8 [facility] Comment on above: Performed By: #### G EANLS #### Point of Care testing , Lymphocytes/100 WBC (Bld) 9.8 % Normal . [facility] Comment on above: Performed By: #### G EANLS #### Point of Care testing , MCH (RBC) [Entitic mass] 26.6 pg Low 27.5-35.2 [facility] Comment on above: Performed By: #### G EANLS #### Point of Care testing , MCV (RBC) [Entitic vol] 79.3 fL Low 83.5-101 [facility] Comment on above: Performed By: #### G EANLS #### Point of Care testing , Mean Corpuscular HGB Conc 33.5 g/dL Normal 32.5-35.6 [facility] Comment on above: Performed By: #### G ALVARADO #### Point of Care testing , Monocytes (Bld) [#/Vol] 0.5 10*3/uL Normal 0.0-0.8 [facility] Comment on above: Performed By: #### G EANLS #### Point of Care testing , Monocytes/100 WBC (Bld) 3.8 % Normal . [facility] Comment on above: Performed By: #### Georgette MCKOYLS #### Point of Care testing , Neutrophils (Bld) [#/Vol] 11.3 10*3/uL High 1.8-7.7 [facility] Comment on above: Performed By: #### G EANLS #### Point of Care testing , Neutrophils/100 WBC (Bld) 83.7 % Normal . [facility] Comment on above: Performed By: #### G EANLS #### Point of Care testing , NRBC% 0.0 /100{WBC} Normal 0-0.5 [facility] Comment on above: Performed By: #### G EANLS #### Point of Care testing , Platelet mean volume (Bld) [Entitic vol] 7.5 fL Normal 6.6-10.1 [facility] Comment on above: Performed By: #### G EANLS #### Point of Care testing , Platelets (Bld) [#/Vol] 279 10*3/uL Normal 150-450 [facility] Comment on above: Performed By: #### G EANLS #### Point of Care testing , RBC (Bld) [#/Vol] 3.32 10*6/uL Low 3.90-5.60 [facility] Comment on above: Performed By: #### G EANLS #### Point of Care testing , WBC (Bld) [#/Vol] 13.6 10*3/uL High 4.1-10.5 [facility] Comment on above: Performed By: #### G EANLS #### Point of Care testing , Glucose Poct Glucometerson 0 - Glucose [Mass/Vol] 220 mg/dL Normal [facility] Comment on above: Result Comment: [facility] Glucose Reference Range is dependent on time and content of last meal. Glucose of more than 200 mg/dL in a nonstressed, ambulatory subject supports the diagnosis of Diabetes Mellitus. PERFORMED BY: [facility] [employer] [place] [address] PATHOLOGIST CUSTOMER SALES SERVICE MANAGER RAFA BYRNE M.D. Performed By: #### G EANLS #### Point of Care testing , Glucose [Mass/Vol] 176 mg/dL Normal [facility] Comment on above: Result Comment: [place] [facility] Glucose Reference Range is dependent on time and content of last meal. Glucose of more than 200 mg/dL in a nonstressed, ambulatory subject supports the diagnosis of Diabetes Mellitus. PERFORMED BY: [place] [id number] PATHOLOGIST CUSTOMER SALES SERVICE MANAGER RAFA BYRNE M.D. Performed By: #### C BC, BMP #### [address] Glucose [Mass/Vol] 294 mg/dL Normal [facility] Comment on above: Result Comment: [place] [facility] Glucose Reference Range is dependent on time and content of last meal. Glucose of more than 200 mg/dL in a nonstressed, ambulatory subject supports the diagnosis of Diabetes Mellitus. PERFORMED BY: [place] [id number] PATHOLOGIST CUSTOMER SALES SERVICE MANAGER RAFA BYRNE M.D. Performed By: #### A BG #### Point of Care testing , Glucose [Mass/Vol] 170 mg/dL Normal [facility] Comment on above: Result Comment: [place] [facility] Glucose Reference Range is dependent on time and content of last meal. Glucose of more than 200 mg/dL in a nonstressed, ambulatory subject supports the diagnosis of Diabetes Mellitus. PERFORMED BY: [place] [id number] PATHOLOGIST CUSTOMER SALES SERVICE MANAGER RAFA BYRNE M.D. Performed By: #### A BG #### Point of Care testing , Hepatitis Acute Panelon - HBsAg Screen Negative Normal Negative [facility] Comment on above: Performed By: #### P P #### [address] Hepatitis A Antibody IgM Negative Normal Negative [facility] Comment on above: Performed By: #### P P #### [address] Hepatitis B Core Antibody IgM Negative Normal Negative [facility] Comment on above: Performed By: #### P P #### [address] Hepatitis C Virus Antibody Non-Reactive Normal Non Reactive [facility] Comment on above: Performed By: #### P P #### [address] Interpretation Hepatitis C Normal . [facility] Comment on above: Result Comment: Not infected with HCV unless early or acute infection is suspected (which may be delayed in an immunocompromised individual), or other evidence exists to indicate HCV infection. Performed By: #### P P #### [address] Hepatitis B Core Antibodyon 01-30-2024 Hepatitis B Core Antibody Negative Normal Negative [facility] Comment on above: Result Comment: Perf ormed at: [facility] [address] [id number] Music Minister: Alexis Winslow PhD, Phone: [phone] PERFORMED BY: [place] [id number] PATHOLOGIST CUSTOMER SALES SERVICE MANAGER RAFA BYRNE M.D. Performed By: #### P P #### [address] Hepatitis B Surface Antibody on 01-30-2024 Hepatitis B Surface Antibody Non-Reactive Normal . [facility] Comment on above: Result Comment: Non Reactive: Inconsistent with immunity, less than 10 mIU/mL Reactive: Consistent with immunity, greater than 9.9 mIU/mL Performed By: #### P P #### [address] Hepatitis B virus surface Ab [Presence] in SerumOrdered By: Lia Law on 01-30-2024 HBV surface Ab Ql (S) Non-Reactive . [facility] Comment on above: Non Reactive: Incons istent with immunity, less than 10 mIU/mL Reactive: Consistent with immunity, greater than 9.9 mIU/mL Hepatitis B virus surface Ag [Presence] in Serum or Plasma by ImmunoassayOrdered By: Lia Law on 01-30-2024 HBV surface Ag IA Ql Negative Negative [facility] Hepatitis C virus IgG Ab [Pr esence] in Serum or Plasma by ImmunoassayOrdered By: Lia Law on 01-30-2024 HCV IgG IA Ql Non-Reactive Non Reactive [facility] Hepatitis C virus RNA [Units /volume] (viral load) in Serum or Plasma by RADHA with probOrdered By: Lia Law on 01-30-2024 HCV RNA RADHA+probe Qn N/A [facility] Hepatitis C virus RNA [log u nits/volume] (viral load) in Serum or Plasma by RADHA withOrdered By: Lia Law on 01-30-2024 HCV RNA RADHA+probe [Log units/Vol] N/A [facility] No Panel InformationOrdered By: Lia Law on 01-30-2024 Hepatitis A IgM Antibody Negative Negative [facility] Hepatitis B Core IgM Antibody Negative Negative [facility] Hepatitis B Core Total Antibody Negative Negative [facility] Comment on above: Performed at: [place] [id number] Director: Alexis Winslow PhD, Phone: [phone] Hepatitis C Interpretation See comment . [facility] Comment on above: Not infected with HC V unless early or acute infection issuspected (which may be delayed in an immunocompromisedindividual), or other evidence exists to indicate HCVinfection. Total Proteinon 01-30-2024 Protein [Mass/Vol] 6.6 g/dL Normal 6.4-8.9 [facility] Comment on above: Performed By: #### G LULS #### Point of Care testing , US arterial pvr rest Sebastian US arterial pvr rest [facility] [place] [address] Ultrasound Report Signed Patient: Adwoa Porter MR#: [id number] 7 : 1955 Acct:[id number] Age/Sex: 68 / M ADM Date: 01/28/24 Loc: Room: [address] [place] [address] Type: ADM IN Attending Dr: Farhan Hudson [...] Raul Bravo MD01/30/2024 2:51 PM Dictation Location: [place] [address] Tech: Marline Ross Transcribed By: CONSUELO 01/30/24 1451 Dictated By: Raul Bravo MD 01/30/24 1450 Signed By: 01/30/24 1451 Normal [facility] Aerobic cultureOrdered By: Ayo Hudson on 01-29-2024 Bacteria identified Aer cx Nom (Unsp spec) 2 Days [facility] Amorphous urine sedimentOrde red By: Farhan Hudson on 01-29-2024 Amorphous sediment LM Ql (Urine sed) 2+ [LPF] [facility] Automated erythrocytes count in urine sediment (number/area)Ordered By: Farhan Hudson on 01-29-2024 RBC Auto (Urine sed) [#/Area] 20-49 [HPF] 0-4 [facility] Automated leukocytes count i n urine sediment (number/area)Ordered By: Farhan Hudson on 01-29-2024 WBC Auto (Urine sed) [#/Area] 5-9 [HPF] 0-4 [facility] Basic Metabolic Panelon 01-17 Anion gap [Moles/Vol] 18.7 mmol/L High 6.0-15.0 [facility] Comment on above: Performed By: #### G LULS #### Point of Care testing , Calcium [Mass/Vol] 7.3 mg/dL Low 8.6-10.3 [facility] Comment on above: Performed By: #### G LULS #### Point of Care testing , Chloride [Moles/Vol] 95 mmol/L Low 98-107 [facility] Comment on above: Performed By: #### G LULS #### Point of Care testing , CO2 [Moles/Vol] 15.4 mmol/L Low 21.0-31.0 [facility] Comment on above: Performed By: #### G LULS #### Point of Care testing , Creatinine [Mass/Vol] 5.37 mg/dL High 0.70-1.30 [facility] Comment on above: Performed By: #### G LULS #### Point of Care testing , Creatinine Clr Calc Pharmacy 14.89 [facility] Comment on above: Result Comment: PERF ORMED BY: [facility] [address] [place] [address] PATHOLOGIST CUSTOMER SALES SERVICE MANAGER RAFA BYRNE M.D. Performed By: #### G LULS #### Point of Care testing , GFR/1.73 sq M.predicted MDRD (S/P/Bld) [Vol rate/Area] 10.840 mL/min/{1.73_m2} [facility] Comment on above: Performed By: #### G LULS #### Point of Care testing , Glucose [Mass/Vol] 211 mg/dL High 70-100 [facility] Comment on above: Result Comment: [place] Glucose Reference Range is dependent on time and content of last meal. Glucose of more than 200 mg/dL in a nonstressed, ambulatory subject supports the diagnosis of Diabetes Mellitus. ADA recommended reference range Performed By: #### G LULS #### Point of Care testing , Potassium [Moles/Vol] 6.1 mmol/L Off scale high 3.5-5.1 [facility] Comment on above: Result Comment: Crit ical Result Called to and read back by: LEXI JOSEPH at: 01/29/2024 06:33:36 by:OSCAR Performed By: #### G LULS #### Point of Care testing , Sodium [Moles/Vol] 123 mmol/L Off scale low 136-145 [facility] Comment on above: Result Comment: Crit ical Result Called to and read back by: LEXI JOSEPH at: 01/29/2024 06:33:36 by:OSCAR Performed By: #### G LULS #### Point of Care testing , Urea nitrogen [Mass/Vol] 105 mg/dL High 7-25 [facility] Comment on above: Performed By: #### G LULS #### Point of Care testing , Bilirubin Test strip Ql (U)O rdered By: Farhan Hudson on 01-29-2024 Bilirubin Ql (U) Negative Negative [facility] Clostridium Difficileon 01-17 Clostridium Difficile Negative Normal Negative [facility] Comment on above: Order Comment: > or = to 3 loose/watery stools in the last 24 HRS? Y Is patient on promotility agents or tube feeding? N Result Comment: Test ing performed by RT-PCR PERFORMED BY: [place] [address] [place] [address] PATHOLOGIST CUSTOMER SALES SERVICE MANAGER RAFA BYRNE M.D. Performed By: #### A BG #### Point of Care testing , Coagulation Profileon 2023 aPTT Coag (Bld) [Time] 43.4 s High 25.1-36.5 [facility] Comment on above: Result Comment: A he matocrit value greater than 55% may lead to inaccurate results in coagulation testing. Patients having hematocrit values >55% require a special collection tube for coagulation studies. Please contact the laboratory at [phone] for redraw instructions. PERFORMED BY: [place] [address] [place] [id number] PATHOLOGIST CUSTOMER SALES SERVICE MANAGER RAFA BYRNE M.D. Performed By: #### A BG #### Point of Care testing , INR Coag (PPP) [Relative time] 2.6 {INR} Normal [facility] Comment on above: Result Comment: INR Therapeutic [...] Coag (PPP) [Time] 29.2 s High 9.0-12.9 [facility] Comment on above: Result Comment: A he matocrit value greater than 55% may lead to inaccurate results in coagulation testing. Patients having hematocrit values >55% require a special collection tube for coagulation studies. Please contact the laboratory at [phone] for redraw instructions. Performed By: #### A BG #### Point of Care testing , Color Auto (U)Ordered By: Nidia Hudson on 01-29-2024 Color (U) Dark yellow Yellow [facility] Complete Blood Count Auto Di ffon 01-29-2024 Basophils (Bld) [#/Vol] 0.1 10*3/uL Normal 0.0-0.2 [facility] Comment on above: Result Comment: PERF ORMED BY: [facility] [address] [place] [address] PATHOLOGIST CUSTOMER SALES SERVICE MANAGER RAFA BYRNE M.D. Performed By: #### G LULS #### Point of Care testing , Basophils/100 WBC (Bld) 0.7 % Normal . [facility] Comment on above: Performed By: #### G LULS #### Point of Care testing , Eosinophils (Bld) [#/Vol] 0.2 10*3/uL Normal 0.0-0.45 [facility] Comment on above: Performed By: #### G LULS #### Point of Care testing , Eosinophils/100 WBC (Bld) 1.1 % Normal . [facility] Comment on above: Performed By: #### G ALVARADO #### Point of Care testing , Erythrocyte distribution width (RBC) [Ratio] 17.4 % High 12.0-14.8 [facility] Comment on above: Performed By: #### G EANLS #### Point of Care testing , Hematocrit (Bld) [Volume fraction] 29.5 % Low 38.8-50.0 [facility] Comment on above: Performed By: #### G ALVARADO #### Point of Care testing , Hemoglobin (Bld) [Mass/Vol] 9.9 g/dL Low 13.0-17.0 [facility] Comment on above: Performed By: #### G EANLS #### Point of Care testing , Lymphocytes (Bld) [#/Vol] 1.3 10*3/uL Normal 1.00-4.8 [facility] Comment on above: Performed By: #### Georgette MCKOYLS #### Point of Care testing , Lymphocytes/100 WBC (Bld) 6.8 % Normal . [facility] Comment on above: Performed By: #### Georgette CHILDERS #### Point of Care testing , MCH (RBC) [Entitic mass] 26.7 pg Low 27.5-35.2 [facility] Comment on above: Performed By: #### G ALVARADO #### Point of Care testing , MCV (RBC) [Entitic vol] 79.7 fL Low 83.5-101 [facility] Comment on above: Performed By: #### G ALVARADO #### Point of Care testing , Mean Corpuscular HGB Conc 33.5 g/dL Normal 32.5-35.6 [facility] Comment on above: Performed By: #### G EANLS #### Point of Care testing , Monocytes (Bld) [#/Vol] 0.5 10*3/uL Normal 0.0-0.8 [facility] Comment on above: Performed By: #### Georgette CHILDERS #### Point of Care testing , Monocytes/100 WBC (Bld) 2.7 % Normal . [facility] Comment on above: Performed By: #### G LULS #### Point of Care testing , Neutrophils (Bld) [#/Vol] 16.7 10*3/uL High 1.8-7.7 [facility] Comment on above: Performed By: #### G LULS #### Point of Care testing , Neutrophils/100 WBC (Bld) 88.7 % Normal . [facility] Comment on above: Performed By: #### G LULS #### Point of Care testing , NRBC% 0.0 /100{WBC} Normal 0-0.5 [facility] Comment on above: Performed By: #### G LULS #### Point of Care testing , Platelet mean volume (Bld) [Entitic vol] 7.8 fL Normal 6.6-10.1 [facility] Comment on above: Performed By: #### G EANLS #### Point of Care testing , Platelets (Bld) [#/Vol] 326 10*3/uL Normal 150-450 [facility] Comment on above: Performed By: #### G EANLS #### Point of Care testing , RBC (Bld) [#/Vol] 3.71 10*6/uL Low 3.90-5.60 [facility] Comment on above: Performed By: #### G ALVARADO #### Point of Care testing , WBC (Bld) [#/Vol] 18.8 10*3/uL High 4.1-10.5 [facility] Comment on above: Performed By: #### G LULS #### Point of Care testing , Dipstick and Microscopicon 0 01-29-2024 Amorphous Sediment,Urine 2+ Normal [facility] Comment on above: Order Comment: Name Collection Type:: Voided Performed By: #### A BG #### Point of Care testing , Appearance (U) Cloudy Critically abnormal Clear [facility] Comment on above: Order Comment: Name Collection Type:: Voided Performed By: #### A BG #### Point of Care testing , Bacteria,Urine Rare High None Seen [facility] Comment on above: Order Comment: Name Collection Type:: Voided Performed By: #### A BG #### Point of Care testing , Bilirubin,Urine Negative Normal Negative [facility] Comment on above: Order Comment: Name Collection Type:: Voided Performed By: #### A BG #### Point of Care testing , Color (U) Dark Yellow Critically abnormal Yellow [facility] Comment on above: Order Comment: Name Collection Type:: Voided Performed By: #### A BG #### Point of Care testing , Glucose Ql (U) 500 mg/dL High Normal [facility] Comment on above: Order Comment: Name Collection Type:: Voided Performed By: #### A BG #### Point of Care testing , Hyaline Casts,Urine 0-8 Normal 0-8 [facility] Comment on above: Order Comment: Name Collection Type:: Voided Performed By: #### A BG #### Point of Care testing , Ketones Ql (U) Trace High Negative [facility] Comment on above: Order Comment: Name Collection Type:: Voided Performed By: #### A BG #### Point of Care testing , Leukocyte esterase Test strip Ql (U) 3+ High Negative [facility] Comment on above: Order Comment: Name Collection Type:: Voided Performed By: #### A BG #### Point of Care testing , Nitrite,Urine Negative Normal Negative [facility] Comment on above: Order Comment: Name Collection Type:: Voided Performed By: #### A BG #### Point of Care testing , Occult Blood,Urine 3+ High Negative [facility] Comment on above: Order Comment: Name Collection Type:: Voided Result Comment: PERF ORMED BY: [facility] [address] [place] [address] PATHOLOGIST CUSTOMER SALES SERVICE MANAGER RAFA BYRNE M.D. Performed By: #### A BG #### Point of Care testing , pH (U) 5.0 [pH] Normal 5.0-9.0 [facility] Comment on above: Order Comment: Name Collection Type:: Voided Performed By: #### A BG #### Point of Care testing , Protein (U) [Mass/Vol] 100 mg/dL High Negative [facility] Comment on above: Order Comment: Name Collection Type:: Voided Performed By: #### A BG #### Point of Care testing , RBC,Urine 20-49 High 0-4 [facility] Comment on above: Order Comment: Name Collection Type:: Voided Performed By: #### A BG #### Point of Care testing , Specificy [place],Urine 1.019 Normal 1.001-1.03 0 [facility] Comment on above: Order Comment: Name Collection Type:: Voided Performed By: #### A BG #### Point of Care testing , Squamous Epithelial Cell,Urine 0-1 Normal 0-2 [facility] Comment on above: Order Comment: Name Collection Type:: Voided Performed By: #### A BG #### Point of Care testing , Urobilinogen,Urine Normal Normal Normal [facility] Comment on above: Order Comment: Name Collection Type:: Voided Performed By: #### A BG #### Point of Care testing , WBC,Urine 5-9 High 0-4 [facility] Comment on above: Order Comment: Name Collection Type:: Voided Performed By: #### A BG #### Point of Care testing , Yeast,Urine Budding Yeast Critically abnormal None Seen [facility] Comment on above: Order Comment: Name Collection Type:: Voided Result Comment: PERF ORMED BY: [place] [id number] PATHOLOGIST CUSTOMER SALES SERVICE MANAGER RAFA BYRNE M.D. Performed By: #### A BG #### Point of Care testing , ECG 12 lead ECGon 01-29-2024 ECG 12 lead ECG [facility] [address] Electrocardiograph Report Signed Patient: Adwoa Porter MR#: [id number] 7 : 1955 Acct:[id number] Age/Sex: 68 / M ADM Date: 01/28/24 Loc: Room: [address] [place] [address] Type: ADM IN Attending Dr: Farhan Hudson [...] David Root MD 0 01/30/24 1202 Normal [facility] Glucose Poct Glucometerson 0 01-29-2024 Glucose [Mass/Vol] 256 mg/dL Normal [facility] Comment on above: Result Comment: [facility] Glucose Reference Range is dependent on time and content of last meal. Glucose of more than 200 mg/dL in a nonstressed, ambulatory subject supports the diagnosis of Diabetes Mellitus. PERFORMED BY: [place] [id number] PATHOLOGIST CUSTOMER SALES SERVICE MANAGER RAFA BYRNE M.D. Performed By: #### A BG #### Point of Care testing , Glucose [Mass/Vol] 236 mg/dL Normal [facility] Comment on above: Result Comment: [facility] Glucose Reference Range is dependent on time and content of last meal. Glucose of more than 200 mg/dL in a nonstressed, ambulatory subject supports the diagnosis of Diabetes Mellitus. PERFORMED BY: [address] [address] PATHOLOGIST CUSTOMER SALES SERVICE MANAGER RAFA BYRNE M.D. Performed By: #### G LULS #### Point of Care testing , Glucose [Mass/Vol] 214 mg/dL Normal [facility] Comment on above: Result Comment: [facility] Glucose Reference Range is dependent on time and content of last meal. Glucose of more than 200 mg/dL in a nonstressed, ambulatory subject supports the diagnosis of Diabetes Mellitus. PERFORMED BY: [address] [place] [address] PATHOLOGIST CUSTOMER SALES SERVICE MANAGER RAFA BYRNE M.D. Performed By: #### G LULS #### Point of Care testing , Glucose [Mass/Vol] 273 mg/dL Normal [facility] Comment on above: Result Comment: [facility] Glucose Reference Range is dependent on time and content of last meal. Glucose of more than 200 mg/dL in a nonstressed, ambulatory subject supports the diagnosis of Diabetes Mellitus. PERFORMED BY: [address] [place] [address] PATHOLOGIST CUSTOMER SALES SERVICE MANAGER RAFA BYRNE M.D. Performed By: #### G LULS #### Point of Care testing , Glucose [Mass/Vol] 255 mg/dL Normal [facility] Comment on above: Result Comment: [facility] Glucose Reference Range is dependent on time and content of last meal. Glucose of more than 200 mg/dL in a nonstressed, ambulatory subject supports the diagnosis of Diabetes Mellitus. PERFORMED BY: [address] [place] [address] PATHOLOGIST CUSTOMER SALES SERVICE MANAGER RAFA BYRNE M.D. Performed By: #### G LULS #### Point of Care testing , Ketones Auto test strip (U) [Mass/Vol]Ordered By: Farhan Hudson on 01-29-2024 Ketones (U) [Mass/Vol] Trace Negative [facility] Laboratory - UrinalysisOrder ed By: Farhan Hudson on 01-29-2024 Hyaline casts LM Ql (Urine sed) 0-8 [LPF] 0-8 [facility] Nitrite Test strip Ql (U)Ord ered By: Farhan Hudson on 01-29-2024 Nitrite Ql (U) Negative Negative [facility] Protein Auto test strip (U) [Mass/Vol]Ordered By: Farhan Hudson on 01-29-2024 Protein (U) [Mass/Vol] 100 mg/dL Negative [facility] Specific gravity Auto test s trip (U) [Rel density]Ordered By: Farhan Hudson on 01-29-2024 Specific gravity (U) [Rel density] 1.019 1.001-1.03 0 [facility] Squamous epithelial cells de tection in urine sediment by light microscopyOrdered By: Farhan Hudson on 01-29-2024 Epithelial cells.squamous LM Ql (Urine sed) 0-1 [HPF] 0-2 [facility] Superficial Wound Cultureon 01-29-2024 Superficial Wound Culture Light Normal Skin Cedric 2 Days PERFORMED BY: [facility] [address] [place] [address] PATHOLOGIST CUSTOMER SALES SERVICE MANAGER RAFA BYRNE M.D. Normal [facility] Comment on above: Performed By: #### C BC, BMP #### [facility] [address] Urine Cultureon 01-29-2024 Bacteria identified Cx Nom (U) Results called at 0841 on 02/02/24 ORGANISM: Klebsiella variicola (O:KLEVAR) [place] Count 15,000 Organism Comments Multidrug Resistant Organism [...] RESISTANT TO ALL B-LACTAM DRUGS. PERFORMED BY: [facility] [place] [address] PATHOLOGIST CUSTOMER SALES SERVICE MANAGER RAFA BYRNE M.D. Normal [facility] Comment on above: Performed By: #### A BG #### Point of Care testing , Urine bacteria detection by automated methodOrdered By: Farhan Hudson on 01-29-2024 Bacteria Auto Ql (U) Rare None Seen [facility] Urine clarity by refractomet ry automatedOrdered By: Farhan Hudson on 01-29-2024 Clarity Refractometry automated (U) Cloudy Clear [facility] Urine culture routineOrdered By: Farhan Hudson on 01-29-2024 Bacteria identified Cx Nom (U) Klebsiella variicola [facility] Urine glucose measurement by automated test strip (mass/volume)Ordered By: Farhan Hudson on 01-29-2024 Glucose Auto test strip (U) [Mass/Vol] 500 mg/dL Normal [facility] Urine hemoglobin detection b y automated test stripOrdered By: Farhan Hudson on 01-29-2024 Hemoglobin Auto test strip Ql (U) 3+ Negative [facility] Urine leukocyte esterase det ection by automated test stripOrdered By: Farhan Hudson on 01-29-2024 Leukocyte esterase Auto test strip Ql (U) 3+ Negative [facility] Urobilinogen Auto test strip (U) [Mass/Vol]Ordered By: Farhan Hudson on 01-29-2024 Urobilinogen (U) [Mass/Vol] Normal mg/dL Normal [facility] Yeast detection in urine sed iment by light microscopyOrdered By: Farhan Hudson on 01-29-2024 Yeast LM Ql (Urine sed) Budding yeast [HPF] None Seen [facility] pH Auto test strip (U)Ordere d By: Farhan Hudson on 01-29-2024 pH (U) 5.0 [pH] 5.0-9.0 [facility] Amikacin [Mass/volume] in Se rum or Plasma --randomOrdered By: Farhan Hudson on 01-28-2024 Amikacin random [Mass/Vol] See comment [facility] Comment on above: See report. Scanned copy available in EMR. Amikacin, Random (CCF)on Amikacin, Random (CCF) Normal [facility] Comment on above: Result Comment: See report. Scanned copy available in EMR. PERFORMED BY: [place] [id number] PATHOLOGIST CUSTOMER SALES SERVICE MANAGER RAFA BYRNE M.D. Performed By: #### G LULS #### Point of Care testing , B-Type Natriuretic Peptideon 01-28-2024 Natriuretic peptide B (Bld) [Mass/Vol] 1652.0 pg/mL High 5-100 [facility] Comment on above: Result Comment: PERF ORMED BY: [place] [phone] PATHOLOGIST CUSTOMER SALES SERVICE MANAGER RAFA BYRNE M.D. Performed By: #### C BC, BMP #### [address] Clostridioides difficile tox in B tcdB gene [Presence] in Stool by RADHA with probe deteOrdered By: Farhan Hudson on 01-28-2024 C. difficile toxin B tcdB gene RADHA+probe Ql (Stl) Negative Negative [facility] Comment on above: Testing performed by RT-PCR Complete Blood Count Auto Di ffon 01-28-2024 Basophils (Bld) [#/Vol] 0.1 10*3/uL Normal 0.0-0.2 [facility] Comment on above: Result Comment: PERF ORMED BY: [place] [id number] PATHOLOGIST CUSTOMER SALES SERVICE MANAGER RAFA BYRNE M.D. Performed By: #### A BG #### Point of Care testing , Basophils/100 WBC (Bld) 0.4 % Normal . [facility] Comment on above: Performed By: #### A BG #### Point of Care testing , Eosinophils (Bld) [#/Vol] 0.3 10*3/uL Normal 0.0-0.45 [facility] Comment on above: Performed By: #### A BG #### Point of Care testing , Eosinophils/100 WBC (Bld) 1.6 % Normal . [facility] Comment on above: Performed By: #### A BG #### Point of Care testing , Erythrocyte distribution width (RBC) [Ratio] 17.8 % High 12.0-14.8 [facility] Comment on above: Performed By: #### A BG #### Point of Care testing , Hematocrit (Bld) [Volume fraction] 31.5 % Low 38.8-50.0 [facility] Comment on above: Performed By: #### A BG #### Point of Care testing , Hemoglobin (Bld) [Mass/Vol] 10.3 g/dL Low 13.0-17.0 [facility] Comment on above: Performed By: #### A BG #### Point of Care testing , Lymphocytes (Bld) [#/Vol] 1.3 10*3/uL Normal 1.00-4.8 [facility] Comment on above: Performed By: #### A BG #### Point of Care testing , Lymphocytes/100 WBC (Bld) 6.5 % Normal . [facility] Comment on above: Performed By: #### A BG #### Point of Care testing , MCH (RBC) [Entitic mass] 26.3 pg Low 27.5-35.2 [facility] Comment on above: Performed By: #### A BG #### Point of Care testing , MCV (RBC) [Entitic vol] 80.4 fL Low 83.5-101 [facility] Comment on above: Performed By: #### A BG #### Point of Care testing , Mean Corpuscular HGB Conc 32.8 g/dL Normal 32.5-35.6 [facility] Comment on above: Performed By: #### A BG #### Point of Care testing , Monocytes (Bld) [#/Vol] 0.7 10*3/uL Normal 0.0-0.8 [facility] Comment on above: Performed By: #### A BG #### Point of Care testing , Monocytes/100 WBC (Bld) 3.5 % Normal . [facility] Comment on above: Performed By: #### A BG #### Point of Care testing , Neutrophils (Bld) [#/Vol] 18.1 10*3/uL High 1.8-7.7 [facility] Comment on above: Performed By: #### A BG #### Point of Care testing , Neutrophils/100 WBC (Bld) 88.0 % Normal . [facility] Comment on above: Performed By: #### A BG #### Point of Care testing , NRBC% 0.1 /100{WBC} Normal 0-0.5 [facility] Comment on above: Performed By: #### A BG #### Point of Care testing , Platelet mean volume (Bld) [Entitic vol] 7.9 fL Normal 6.6-10.1 [facility] Comment on above: Performed By: #### A BG #### Point of Care testing , Platelets (Bld) [#/Vol] 337 10*3/uL Normal 150-450 [facility] Comment on above: Performed By: #### A BG #### Point of Care testing , RBC (Bld) [#/Vol] 3.92 10*6/uL Normal 3.90-5.60 [facility] Comment on above: Performed By: #### A BG #### Point of Care testing , WBC (Bld) [#/Vol] 20.6 10*3/uL High 4.1-10.5 [facility] Comment on above: Performed By: #### A BG #### Point of Care testing , Comprehensive Metabolic Pane bola 01-28-2024 Albumin [Mass/Vol] 2.6 g/dL Low 3.5-5.7 [facility] Comment on above: Performed By: #### G LULS #### Point of Care testing , Albumin/Globulin [Mass ratio] 0.5 {ratio} Normal [facility] Comment on above: Performed By: #### G ALVARADO #### Point of Care testing , ALP [Catalytic activity/Vol] 183 U/L High 34-104 [facility] Comment on above: Performed By: #### Georgette CHILDERS #### Point of Care testing , ALT [Catalytic activity/Vol] 32 U/L Normal 7-52 [facility] Comment on above: Performed By: #### Georgette CHILDERS #### Point of Care testing , Anion gap [Moles/Vol] 18.2 mmol/L High 6.0-15.0 [facility] Comment on above: Performed By: #### G ALVARADO #### Point of Care testing , AST [Catalytic activity/Vol] 26 U/L Normal 13-39 [facility] Comment on above: Performed By: #### Georgette CHILDERS #### Point of Care testing , Bilirubin [Mass/Vol] 0.4 mg/dL Normal 0.3-1.0 [facility] Comment on above: Performed By: #### Georgette CHILDERS #### Point of Care testing , Calcium [Mass/Vol] 7.3 mg/dL Low 8.6-10.3 [facility] Comment on above: Performed By: #### Georgette CHILDERS #### Point of Care testing , Chloride [Moles/Vol] 94 mmol/L Low 98-107 [facility] Comment on above: Performed By: #### Georgette CHILDERS #### Point of Care testing , CO2 [Moles/Vol] 17.6 mmol/L Low 21.0-31.0 [facility] Comment on above: Performed By: #### Georgette CHILDERS #### Point of Care testing , Creatinine [Mass/Vol] 5.14 mg/dL High 0.70-1.30 [facility] Comment on above: Performed By: #### Georgette CHILDERS #### Point of Care testing , Creatinine Clr Calc Pharmacy 15.56 [facility] Comment on above: Performed By: #### Georgette CHILDERS #### Point of Care testing , GFR/1.73 sq M.predicted MDRD (S/P/Bld) [Vol rate/Area] 11.425 mL/min/{1.73_m2} Normal [facility] Comment on above: Performed By: #### G LULS #### Point of Care testing , Globulin (S) [Mass/Vol] 4.8 g/dL Normal [facility] Comment on above: Performed By: #### G LULS #### Point of Care testing , Glucose [Mass/Vol] 196 mg/dL High 70-100 [facility] Comment on above: Result Comment: [place] Glucose Reference Range is dependent on time and content of last meal. Glucose of more than 200 mg/dL in a nonstressed, ambulatory subject supports the diagnosis of Diabetes Mellitus. ADA recommended reference range Performed By: #### G LULS #### Point of Care testing , Potassium [Moles/Vol] 5.8 mmol/L High 3.5-5.1 [facility] Comment on above: Performed By: #### G LULS #### Point of Care testing , Protein [Mass/Vol] 7.4 g/dL Normal 6.4-8.9 [facility] Comment on above: Performed By: #### G LULS #### Point of Care testing , Sodium [Moles/Vol] 124 mmol/L Off scale low 136-145 [facility] Comment on above: Result Comment: Crit ical Result Called to and read back by: JORJE SALINAS at: 01/28/2024 22:55:22 by:RN Performed By: #### G LULS #### Point of Care testing , Urea nitrogen [Mass/Vol] 93 mg/dL High 7-25 [facility] Comment on above: Performed By: #### G LULS #### Point of Care testing , Glucose Poct Glucometerson 0 01-28-2024 Glucose [Mass/Vol] 232 mg/dL Normal [facility] Comment on above: Result Comment: [facility] Glucose Reference Range is dependent on time and content of last meal. Glucose of more than 200 mg/dL in a nonstressed, ambulatory subject supports the diagnosis of Diabetes Mellitus. PERFORMED BY: [facility] [address] [place] [address] PATHOLOGIST CUSTOMER SALES SERVICE MANAGER RAFA BYRNE M.D. Performed By: #### G LULS #### Point of Care testing , Magnesiumon 01-28-2024 Magnesium [Mass/Vol] 2.2 mg/dL Normal 1.9-2.7 [facility] Comment on above: Result Comment: PERF ORMED BY: [facility] [address] [place] [address] PATHOLOGIST CUSTOMER SALES SERVICE MANAGER RAFA BYRNE M.D. Performed By: #### G LULS #### Point of Care testing , Magnesium [Mass/volume] in S mary or PlasmaOrdered By: Farhan Hudson on 01-28-2024 Magnesium [Mass/Vol] 2.2 mg/dL 1.9-2.7 [facility] Natriuretic peptide B [Mass/ Vol]Ordered By: Farhan Hudson on 01-28-2024 Natriuretic peptide B (Bld) [Mass/Vol] 1652.0 pg/mL 5-100 [facility] Partial Thromboplastin Timeo n 01-28-2024 aPTT Coag (Bld) [Time] 47.6 s High 25.1-36.5 [facility] Comment on above: Result Comment: A he matocrit value greater than 55% may lead to inaccurate results in coagulation testing. Patients having hematocrit values >55% require a special collection tube for coagulation studies. Please contact the laboratory at [phone] for redraw instructions. PERFORMED BY: [facility] [address] [place] [address] PATHOLOGIST CUSTOMER SALES SERVICE MANAGER RAFA BYRNE M.D. Performed By: #### G LULS #### Point of Care testing , Prothrombin Time INRon 01-27 INR Coag (PPP) [Relative time] 2.5 {INR} Normal [facility] Comment on above: Result Comment: INR Therapeutic [...] Coag (PPP) [Time] 28.3 s High 9.0-12.9 [facility] Comment on above: Result Comment: A he matocrit value greater than 55% may lead to inaccurate results in coagulation testing. Patients having hematocrit values >55% require a special collection tube for coagulation studies. Please contact the laboratory at [phone] for redraw instructions. Performed By: #### G LULS #### Point of Care testing , Office Visiton 01-25-2024 Follow-up visit [id number] Adwoa Porter 1955 M Date Provider Department Center 01/25/2024 BRYCE TRAORE Family History Problem Relation Age of Onset Diabetes Mother Hypertension Mother Coronary artery disease Mother Family Status - Relation Status Age at Mother Level of Service:35222 PA OFFICE/OUTPATIENT ESTABLISHED MOD MDM 30 MIN Normal [facility] Bola 01-17-2024 L Specimen: [id number] Received: 01/18/24 Status: SOUT Req Num: [id number] Spec Type: Surgical Subm Dr: Jorge Arroyo DPM, MS Tissues: A Debridement-Skin/Other Than Skin (LT FOOT ULCER) B DIGIT AMPUTATION (LT 5TH METATARSAL) Procedures: HE/3, Gross/Micro L4, Gross/Micro L3, Decalcification Age/ Patient Sex Location Account Attending Physician Adwoa Porter 68/M LABELL [id number] Jorge Arroyo DPM, MS SPEC NUM: [id number] RECD: 01/18/24 STATUS: SOU REQ NUM: [id number] DAV: 01/17/[address]: Jorge Arroyo DPM, [...] with a rodriguez, trabecular cut surf lupis. Senior Sql Server Developer are submitted following decalcification in one cassette labeled B1. Specimen: [id number] Received: 01/18/24 Status: ALEJA Gonzalez Num: [id number] Spec Type: Surgical Subm Dr: Jorge Arroyo,NELLY, MS Tissues: A Debridement-Skin/Other Than Skin (LT FOOT ULCER) B DIGIT AMPUTATION (LT 5TH METATARSAL) Procedures: HE/3, Gross/Micro L4, Gross/Micro L3, Decalcification Patient: Adwoa Porter [id number] (Continued) Specimen: [id number] Received: 01/18/24 (Continued) Signed (signature on file) Joy Navarro MD 01/22/24 1743 Specimen: [id number] Received: 01/18/24 Status: ALEJA Gonzalez Num: [id number] Spec Type: Surgical Subm Dr: Jorge Arroyo,DPM, MS Tissues: A Debridement-Skin/Other Than Skin (LT FOOT ULCER) B DIGIT AMPUTATION (LT 5TH METATARSAL) Procedures: HE/Judy, Gross/Micro L4, Gross/Micro L3, Decalcification Patient: Adwoa Porter [id number] (Continued) Specimen: [id number] Received: 01/18/24 (Continued) CPT Codes 86684b3, 29316 Specimen: [id number] Received: 01/18/24 Status: ALEJA Gonzalez Num: [id number] Spec Type: Surgical Subm Dr: Jorge Arroyo,DPM, MS Tissues: A Debridement-Skin/Other Than Skin (LT FOOT ULCER) B DIGIT AMPUTATION (LT 5TH METATARSAL) Procedures: HE/3, Gross/Micro L4, Gross/Micro L3, Decalcification Patient: Adwoa Poretr [id number] (Continued) Signed (signature on file) Jose Luis-Jaron Navarro MD 01/22/24 1743 [facility] URINALYSISon 12-18-2023 Bilirubin Ql (U) Negative Normal NEG [facility] Comment on above: Performed By: #### U A #### [facility] ([id number]) [address] [place] [address] [place] [address] BLOOD/HGB Negative Normal NEG [facility] Comment on above: Performed By: #### U A #### [facility] ([id number]) [address] [place] [address] Color (U) YELLOW Normal YELLOW [facility] Comment on above: Performed By: #### U A #### [facility] ([id number]) [address] [place] [address] [place] [address] Glucose Ql (U) >1000 Abnormal NEG [facility] Comment on above: Performed By: #### U A #### [facility] ([id number]) [address] [place] [address] Ketones Ql (U) Negative Normal [facility] Comment on above: Performed By: #### U A #### [facility] ([id number]) [address] [place] [address] [place] [address] Leukocyte esterase Test strip Ql (U) Negative Normal NEG [facility] Comment on above: Result Comment: HIGH CONCENTRATIONS OF GLUCOSE MAY DECREASE THE REACTIVITY OF THE DIPSTICK LEUKOCYTE TEST PAD. Performed By: #### U A #### [facility] ([id number]) [address] [place] [address] [place] [address] Nitrite Ql (U) Negative Normal NEG [facility] Comment on above: Performed By: #### U A #### [facility] ([id number]) [address] [place] [address], [place] [address] pH (U) 7.0 [pH] Normal 5.0-8.5 [facility] Comment on above: Performed By: #### U A #### [facility] ([id number]) [address] [place] [address] Protein Ql (U) Negative Normal NEG [facility] Comment on above: Performed By: #### U A #### [facility] ([id number]) [address] [place] [address] Specific gravity (U) [Rel density] 1.010 Normal 1.003-1.[address] [place] [address] Comment on above: Performed By: #### U A #### [facility] ([id number]) [address] [place] [address] TURBIDITY CLEAR Normal CLEAR [facility] Comment on above: Performed By: #### U A #### [facility] ([id number]) [address] [place] [address] Urinalysis dipstick W Reflex Microscopic panel (U) URINE RECEIVED WITHOUT PRESERVATIVE-DELAYS IN TRANSPORT MAY AFFECT RESULTS.INTERPRET WITH CAUTION AND CLINICAL CORRELATION IS RECOMMENDED. Normal [facility] Comment on above: Performed By: #### U A #### [facility] ([id number]) [address] [place] [address] Urobilinogen Qn (U) 0.2 {Ashley'U}/dL Normal <1.1 [facility] Comment on above: Performed By: #### U A #### [facility] ([id number]) [address] [place] [address] URINE CULTUREon 12-18-2023 Bacteria identified Cx Nom (U) CULTURE RESULTS NO GROWTH AT <1000 CFU/mL Normal [facility] Comment on above: Performed By: #### 6 30-4 #### [facility] ([id number]) [address] [facility], [address] [place] [address] Office Visiton 11-26-2023 Follow-up visit [id number] Jamari,Adwoa Rubi 1955 M Provider Department Center 11/26/2023 BRYCE TRAORE Family History Problem Relation Age of Onset Diabetes Mother Hypertension Mother Coronary artery disease Mother Family Status - Relation Status Age at Mother Level of Service:14562 PA OFFICE/OUTPATIENT ESTABLISHED MOD MDM 30 MIN Normal [facility] Glucose - FINGER STICKon Glucose [Mass/Vol] 529 mg/dL [email or web address] Other Office Visiton 09-21-2023 Follow-up visit [id number] Willie Porteralesha Rubi 1955 M Date Provider Department Center 09/21/2023 SUSHIL CAO [facility] Family History Problem Relation Age of Onset Diabetes Mother Hypertension Mother Coronary artery disease Mother Family Status - Relation Status Age at Mother Level of Service:52829 PA OFFICE/OUTPATIENT ESTABLISHED MOD MDM 30-39 MIN Reason for Visit and Comments: Follow-up [862933] Congestive Heart Failure [127] Normal [facility] Glucose - FINGER STICKon Glucose [Mass/Vol] 91 mg/dL [email or web address] Other Office Visiton 08-23-2023 Follow-up visit [id number] Adwoa Porter 1955 Date Provider Department Center 08/23/2023 MASSIMO DYE [facility] Family History Problem Relation Age of Onset Diabetes Mother Hypertension Mother Coronary artery disease Mother Family Status - Relation Status Age at Mother Level of Service:67327 PA OFFICE/OUTPATIENT ESTABLISHED HIGH MDM 40-54 MIN Reason for Visit and Comments: Wheezing [572354] Hospital Follow-up [832] Normal [facility] Office Visiton 08-15-2023 Follow-up visit [id number] Adwoa Porter 1955 M Date Provider Department Center 08/15/2023 BRYCE TRAORE [facility] Family History Problem Relation Age of Onset Diabetes Mother Hypertension Mother Coronary artery disease Mother Family Status - Relation Status Age at Mother Level of Service:92335 PA OFFICE/OUTPATIENT ESTABLISHED MOD MDM 30-39 MIN [facility] 36on 08-13-2023 36 Pt informed [facility] A1C HEMOGLOBINon 06-29-2023 HbA1c (Bld) [Mass fraction] 7.9 % [facility] [employer] Other Glucose - FINGER STICKon Glucose [Mass/Vol] 382 mg/dL [employer] [facility] [employer] Other HbA1c (Bld) [Mass fraction]o n 06-29-2023 A1C HEMOGLOBIN [facility] [employer] Other 36on 06-20-2023 36 His potassium on 05/21 was 2.7. He needs to come to the hospital to receive IV potassium and further treatment as needed [facility] Telephoneon 06-20-2023 Telephone [id number] Adwoa Porter 1955 M [facility] Provider Department Center 06/20/2023 SUSHIL CAO RICHY [place] Family History Problem Relation Age of Onset Diabetes Mother Hypertension Mother Coronary artery disease Mother Family Status - Relation Status Age at Mother [facility] 36on 06-19-2023 36 [facility] lab called to re port a potassium level of 2.7 today. Melissa tried to call patient to remind him of his apt tomorrow but he did not answer and had no voicemail. [facility] 36on 06-18-2023 36 [facility] lab called to re port a critical BNP of 13,277. FYI. [facility] Telephoneon 06-18-2023 Telephone [id number] Adwoa Porter 1955 Provider Department Center 06/18/2023 SUSHIL CAO Family History Problem Relation Age of Onset Diabetes Mother Hypertension Mother Coronary artery disease Mother Family Status - Relation Status Age at Mother [facility] Office Visiton 06-05-2023 Follow-up visit [id number] Adwoa Porter 1955 M Date Provider Department Center 06/05/2023 SUSHIL CAO [facility] Family History Problem Relation Age of Onset Diabetes Mother Hypertension Mother Coronary artery disease Mother Family Status - Relation Status Age at Mother Level of Service:10831 PA OFFICE/OUTPATIENT ESTABLISHED MOD MDM 30-39 MIN Reason for Visit and Comments: Follow-up [933874] Normal [facility] PTH INTACTon 04-12-2023 PTH, Intact 50 pg/mL Normal 15-65 [facility] Comment on above: Performed By: #### P THINT ####[facility] Hiqejtysqc[address] [place] [address]DrWesley Navarro HEMOGRAM AND PLATELon 2022 Hematocrit (Bld) [Volume fraction] 42.7 % Normal 42.0-54.0 [facility] Comment on above: Performed By: #### H H ####[facility] Xshaewrkvy[address] [place], [place] [address]DrWesley Navarro Hemoglobin (Bld) [Mass/Vol] 14.3 g/dL Normal 14.0-18.0 [facility] Comment on above: Performed By: #### H H ####[facility] Oodkdwscim[address] [place], [place] [address]DrWesley Navarro MCH (RBC) [Entitic mass] 29.5 pg Normal 25.9-34.0 [facility] Comment on above: Performed By: #### H H ####[facility] Jswqypuysi[address] [place], [place] [address]DrWesley Navarro MCHC (RBC) [Mass/Vol] 33.5 g/dL Normal 29.9-35.2 [facility] Comment on above: Performed By: #### H H ####[facility] Bduasblwnk[address] [place], [place] [address]DrWesley Navarro MCV (RBC) [Entitic vol] 88.2 fL Normal 80.0-94.0 [facility] Comment on above: Performed By: #### H H ####[facility] Ekvxrdtadc[address] [place], [place] [address]Dr. Emelina Navarro PLT 278 103/ul Normal 150-450 [facility] Comment on above: Performed By: #### H H ####[facility] Jdpbrjckrt8[address] [place] [address]Dr. Emelina Navarro RBC 4.84 106/ul Normal 4.70-6.10 [facility] Comment on above: Performed By: #### H H ####[facility] Vpxdsalidr16[address] [place] [address]Dr. Emelina Navarro WBC 12.9 103/ul Critically high 4.0-11.[address] [facility] Comment on above: Performed By: #### H H ####[facility] Oajpdwayii88[address] [place] [address]Dr. Emelina Navarro MAGNESIUMon 04-11-2023 Magnesium [Mass/Vol] 2.2 mg/dL Normal 1.8-2.4 [facility] Comment on above: Performed By: #### U JOLIE, RENAL, MG ####[facility] Wyopwkluqv15[address] [place] [address]Dr. Emelina Navarro RENAL FUNCTION PANELon 04-11 Albumin [Mass/Vol] 3.6 g/dL Normal 3.4-5.0 [facility] Comment on above: Performed By: #### U JOLIE, RENAL, MG ####[facility] Hawebrrrhg[address] [place] [address]Dr. Emelina Navarro Calcium [Mass/Vol] 9.5 mg/dL Normal 8.5-10.1 [facility] Comment on above: Performed By: #### U JOLIE, RENAL, MG ####[facility] Sweuzzpymj26[address] [place] [address]Dr. Emelina Navarro Chloride [Moles/Vol] 95 mmol/L Critically low 98-107 [facility] Comment on above: Performed By: #### U JOLIE, RENAL, MG ####[facility] Bdkjyhcxip[address] [place] [address]Dr. Emelina Navarro CO2 [Moles/Vol] 36.4 mmol/L Critically high 21.0-32.0 [facility] Comment on above: Performed By: #### U JOLIE, RENAL, MG ####[facility] Jrylkzmgkb64[address] [place] [id number]. Emelina Navarro Creatinine [Mass/Vol] 1.92 mg/dL Critically high 0.70-1.30 [facility] Comment on above: Performed By: #### U JOLIE, RENAL, MG ####[facility] Mucmwzttdn5322 [place] [address]Dr. Awildanitza Ramon EGFR-AF GRENADIAN 42 mL/min/1.73m2 Critically low >=60 [facility] Comment on above: Performed By: #### U JOLIE, RENAL, MG ####[facility] Zomwicczjq[address] [place] [address]Dr. Emelina Navarro EGFR-NON AF GRENADIAN 35 mL/min/1.73m2 Critically low >=60 [facility] Comment on above: Performed By: #### U JOLIE, RENAL, MG ####[facility] Wfyvfazutq326[address] [place], [place] [address]Dr. Emelina Navarro Glucose [Mass/Vol] 96 mg/dL Normal 74-106 [facility] Comment on above: Performed By: #### U JOLIE, RENAL, MG ####[facility] Khguolwype268[address] [place], [place] [address]Dr. Emelina Navarro Phosphate [Mass/Vol] 4.0 mg/dL Normal 2.6-4.7 [facility] Comment on above: Performed By: #### U JOLIE, RENAL, MG ####[facility] Pnbvabdcii66264[address] [place], [place] [address]Dr. Awildanitza Ramon Potassium [Moles/Vol] 3.1 mmol/L Critically low 3.5-5.1 [facility] Comment on above: Performed By: #### U JOLIE, RENAL, MG ####[facility] Xbuoqlmpze6871 [place] [address]Dr. Emelina Navarro Sodium [Moles/Vol] 137 mmol/L Normal 136-145 [facility] Comment on above: Performed By: #### U JOLIE, RENAL, MG ####[facility] Gpikmhgmnf230[address] [place], [place] [address]Dr. Emelina Navarro Urea nitrogen [Mass/Vol] 31.0 mg/dL Critically high 7.0-18.0 [facility] Comment on above: Performed By: #### U JOLIE, RENAL, MG ####[facility] Nrwmevosox8847 [place] [address]Dr. Emelina Navarro UA RANDOM W/MICROSCOPICon BACTERIA NONE SEEN Normal NONE SEEN [facility] Comment on above: Performed By: #### U AMIC ####[facility] Ucalexuorv[address] [place] [address]Dr. Emelina Navarro Bilirubin Ql (U) Negative Normal NEGATIVE [facility] Comment on above: Performed By: #### U AMIC ####[facility] Xatwwdkeff[address] [place], [place] [address]Dr. Emelina Navarro CAST NONE SEEN Normal NONE SEEN [facility] Comment on above: Performed By: #### U AMIC ####[facility] Llzedcjeih1545 [place] [address]Dr. Emelina Navarro Clarity (U) CLEAR Normal CLEAR [facility] Comment on above: Performed By: #### U AMIC ####[facility] Reeopwzovh08[address] [place] [address]Dr. Emelina Navarro Color (U) LT. YELLOW Normal YELLOW [facility] Comment on above: Performed By: #### U AMIC ####[facility] Otdmepjlql[address] [place] [address]Dr. Emelina Navarro Crystals LM Nom (Urine sed) NONE SEEN Normal NONE SEEN [facility] Comment on above: Performed By: #### U AMIC ####[facility] Jkuxnahybb2541 [place] [address]Dr. Emelina Navarro Epithelial cells LM Ql (Urine sed) FEW Abnormal NONE SEEN /RARE [facility] Comment on above: Performed By: #### U AMIC ####[facility] Xnjlpipedz36[address] [place] [address]Dr. Emelina Nvaarro Glucose Ql (U) 500 mg/dl Abnormal NEGATIVE [facility] Comment on above: Performed By: #### U AMIC ####[facility] Cucrkpvjns4919 [place] [address]Dr. Emelina Navarro Hemoglobin Ql (U) Negative Normal NEGATIVE [facility] Comment on above: Performed By: #### U AMIC ####[facility] Ofvusdjvvo4647 [place] [address]Dr. Emelina Navarro Ketones Ql (U) Negative Normal NEGATIVE [facility] Comment on above: Performed By: #### U AMIC ####[facility] Fngymwubon8[address] [place], [place] [address]Dr. Emelina Navarro LEUKOCYTES Negative Normal NEGATIVE [facility] Comment on above: Performed By: #### U AMIC ####[facility] Emssfxtros674[address] [place], [place] [address]Dr. Emelina Ramon MUCOUS NONE SEEN Normal NONE SEEN [facility] Comment on above: Performed By: #### U AMIC ####[facility] Kkxalffuvt7325[address] [place], [place] [address]Dr. Emelina Ramon Nitrite Ql (U) Negative Normal NEGATIVE [facility] Comment on above: Performed By: #### U AMIC ####[facility] Zzgggsebxp88[address] [place], [place] [address]Dr. Emelina Navarro pH (U) 6.5 [pH] Normal 5-9 [facility] Comment on above: Performed By: #### U AMIC ####[facility] Beyueqqpaz5869[address] [place], [place] [address]Dr. Emelina Navarro RBC NONE SEEN Abnormal 0-2 [facility] Comment on above: Performed By: #### U AMIC ####[facility] Rmvjcolnqi220[address] [place], [place] [address]Dr. Emelina Navarro SPEC GRAVITY 1.005 Normal 1.005-<=1. 025 [facility] Comment on above: Performed By: #### U AMIC ####[facility] Qokslbfwjj489[address] [place], [place] [address]Dr. Emelina Navarro UA PROTEIN Negative Normal NEGATIVE/ TRACE [facility] Comment on above: Performed By: #### U AMIC ####[facility] Bieflfdgbx9948[address] [place], [place] [address]Dr. Emelina Navarro Urobilinogen Qn (U) 0.2 {Ashley'U}/dL Normal 0.2 - 1. 0 [facility] Comment on above: Performed By: #### U AMIC ####[facility] Rvvkbtnlji0931 [place] [address]Dr. Emelina Navarro WBC NONE SEEN Normal NONE SEEN [facility] Comment on above: Performed By: #### U AMIC ####[facility] Dozaravads8590 [place] [address]Dr. Emelina Navarro URIC ACID SERUMon 04-11-2023 Urate [Mass/Vol] 12.2 mg/dL Critically high 3.5-7.2 [facility] Comment on above: Performed By: #### U JOLIE, RENAL, MG ####[facility] Hzkenkazlo4034[address] [place], [place] [address]Dr. Awildanitza Navarro URINE T PROTEIN CREAT RATIOo n 04-11-2023 Protein (U) [Mass/Vol] 9.3 mg/dL Normal <=12.0 [facility] Comment on above: Performed By: #### U RTPCR ####[facility] Mfxpktwuvh8425[address] [place], [place] [address]Dr. Emelina Navarro UR PROT CREAT RAT 0.37 Normal [facility] Comment on above: Performed By: #### U RTPCR ####[facility] Qfpmyrpwon[address] [place], [place] [address]Dr. Emelina Navarro URINE CREAT 25.00 mg/dL Normal 20.00-300. 00 [facility] Comment on above: Performed By: #### U RTPCR ####[facility] Hulinxjwoo418[address] [place], [place] [address]Dr. Emelina Navarro VITAMIN D 25 OHon 04-11-2023 VIT D 25-OH 51.8 ng/mL Normal [facility] Comment on above: Performed By: #### V ITAD ####[facility] Iykqzbdbzc257[address] [place], [place] [address]Dr. Emelina Navarro VIT D RANGES SEE BELOW Normal [facility] Comment on above: Result Comment: <20 ng/mL Vit D deficient 20 - <30 ng/mL Vit D insufficient 30 - 100 ng/mL Vit D sufficient >100 ng/mL Potential Toxicity Performed By: #### V ITAD ####[facility] Erckivoaoe7[address] [place], [place] [address]Dr. Emelina Navarro BNPon 03-28-2023 Natriuretic peptide B (Bld) [Mass/Vol] 7479.0 pg/mL Critically high <=900.0 [facility] Comment on above: Performed By: #### B BLOOD BANK ASSISTANT, CMP ####[facility] Xldpbgmlbw513[address] [place], [place] [address]Dr. Emelina Navarro CBC AUTO DIFFon 03-28-2023 BASO # 0.1 103/ul Normal 0.0-0.1 [facility] Comment on above: Performed By: #### C BC ####[facility] Aozxnpwpol1197[address] [place], [place] [address]Dr. Emelina Navarro Basophils/100 WBC (Bld) 0.5 % Normal 0.2-2.0 [facility] Comment on above: Performed By: #### C BC ####[facility] Sqzrveyavq945[address] [place], [place] [address]Dr. Emelina Navarro EO # 0.4 103/ul Normal 0.0-0.7 [facility] Comment on above: Performed By: #### C BC ####[facility] Aonkahsajj867[address] [place], [place] [address]Dr. Emelina Navarro Eosinophils/100 WBC (Bld) 3.7 % Normal 0.9-7.0 [facility] Comment on above: Performed By: #### C BC ####[facility] Gyijduunsq0197[address] [place], [place] [address]Dr. Awildanitza Navarro Erythrocyte distribution width (RBC) [Ratio] 18.2 % Critically high 11.0-15.0 [facility] Comment on above: Performed By: #### C BC ####[facility] Easmmppvbf119[address] [place], [place] [address]Dr. Awildanitza Navarro Hematocrit (Bld) [Volume fraction] 39.0 % Critically low 42.0-54.0 [facility] Comment on above: Performed By: #### C BC ####[facility] Ohoposbexs69[address] [place] [id number]. Emelina Navarro Hemoglobin (Bld) [Mass/Vol] 12.8 g/dL Critically low 14.0-18.0 [facility] Comment on above: Performed By: #### C BC ####[facility] Knfzxsizvh5382 [place] [address]Dr. Emelina Navarro IG # 0.05 10e3/ul Critically high 0.00-0.03 [facility] Comment on above: Performed By: #### C BC ####[facility] Fheaycmpuz8139 [place] [address]Dr. Emelina Navarro IG % 0.5 % Normal 0.0-0.5 [facility] Comment on above: Performed By: #### C BC ####[facility] Szwqmboyja474[address] [place], [place] [address]Dr. Emelina Navarro LYMPH # 1.4 103/ul Normal 1.2-3.8 [facility] Comment on above: Performed By: #### C BC ####[facility] Haigmuypnl6340 [place] [address]Dr. Emelina Navarro Lymphocytes/100 WBC (Bld) 13.1 % Critically low 20.5-60.0 [facility] Comment on above: Performed By: #### C BC ####[facility] Nkvlyipxtc2335 [place] [address]Dr. Emelina Navarro MANUAL DIFF REQ NO Normal [facility] Comment on above: Performed By: #### C BC ####[facility] Ecdxojgfqs9[address] [place], [place] [address]Dr. Emelina Navarro MCH (RBC) [Entitic mass] 29.8 pg Normal 25.9-34.0 [facility] Comment on above: Performed By: #### C BC ####[facility] Jqwplobqtb9[address] [place], [place] [address]Dr. Emelina Navarro MCHC (RBC) [Mass/Vol] 32.8 g/dL Normal 29.9-35.2 [facility] Comment on above: Performed By: #### C BC ####[facility] Qigzdggdgf5299 [place] [id number]. Emelnia Navarro MCV (RBC) [Entitic vol] 90.9 fL Normal 80.0-94.0 [facility] Comment on above: Performed By: #### C BC ####[facility] Ockaivfyts[address] [place], [place] [address]Dr. Emelina Navarro MONO # 0.8 103/ul Normal 0.3-0.8 [facility] Comment on above: Performed By: #### C BC ####[facility] Uwxzsjllpc030[address] [place], [place] [address]Dr. Emelina Navarro Monocytes/100 WBC (Bld) 7.5 % Normal 1.7-12.0 [facility] Comment on above: Performed By: #### C BC ####[facility] Dstfigeetz5830[address] [place], [place] [address]Dr. Emelina Navarro NEUT # 8.1 103/ul Critically high 1.4-6.5 [facility] Comment on above: Performed By: #### C BC ####[facility] Lhrtbyefyr48[address] [place], [place] [address]Dr. Emelina Navarro Neutrophils/100 WBC (Bld) 74.7 % Normal 43.0-75.0 [facility] Comment on above: Performed By: #### C BC ####[facility] Qerysriftr617[address] [place], [place] [address]Dr. Emelina Navarro Platelet mean volume (Bld) [Entitic vol] 10.0 fL Normal 9.5-13.5 [facility] Comment on above: Performed By: #### C BC ####[facility] Rzzvvmypyy7[address] [place], [place] [address]Dr. Emelina Navarro PLT 242 103/ul Normal 150-450 [facility] Comment on above: Performed By: #### C BC ####[facility] Fvcdynludb426[address] [place], [place] [address]Dr. Emelina Ramon RBC 4.29 106/ul Critically low 4.70-6.10 [facility] Comment on above: Performed By: #### C BC ####[facility] Cqdefnhdys8312 [place] [address]Dr. Emelina Navarro WBC 10.8 103/ul Normal 4.0-11.0 [facility] Comment on above: Performed By: #### C BC ####[facility] Aoherksemw9652 [place] [address]Dr. Emelina Navarro PROF 14(COMP METB)on 023 Albumin [Mass/Vol] 2.7 g/dL Critically low 3.4-5.0 [facility] Comment on above: Performed By: #### B BLOOD BANK ASSISTANT, CMP ####[facility] Tejrtgyvtu9458 [place] [address]Dr. Emelina Navarro Albumin/Globulin [Mass ratio] 0.6 {ratio} Normal [facility] Comment on above: Performed By: #### B BLOOD BANK ASSISTANT, CMP ####[facility] Xnknjqhfyw7712[address] [place], [place] [address]Dr. Emelina Navarro ALP [Catalytic activity/Vol] 105 U/L Normal 46-116 [facility] Comment on above: Performed By: #### B BLOOD BANK ASSISTANT, CMP ####[facility] Kdavwmsxva7155[address] [place], [place] [address]Dr. Emelina Navarro ALT [Catalytic activity/Vol] 21 U/L Normal 16-63 [facility] Comment on above: Performed By: #### B BLOOD BANK ASSISTANT, CMP ####[facility] Augygdmkkw7007 [place] [address]Dr. Emelina Navarro Anion gap [Moles/Vol] 11.6 mmol/L Normal [facility] Comment on above: Performed By: #### B BLOOD BANK ASSISTANT, CMP ####[facility] Rusnmaqpvu9990 [place] [address]Dr. Emelina Navarro AST [Catalytic activity/Vol] 25 U/L Normal 15-37 [facility] Comment on above: Performed By: #### B BLOOD BANK ASSISTANT, CMP ####[facility] Osfzuxewft9083 [place] [address]Dr. Emelina Navarro Bilirubin [Mass/Vol] 0.8 mg/dL Normal 0.2-1.0 [facility] Comment on above: Performed By: #### B BLOOD BANK ASSISTANT, CMP ####[facility] Jiygvxxpmz9105 [place] [address]Dr. Emelina Navarro Calcium [Mass/Vol] 8.1 mg/dL Critically low 8.5-10.1 [facility] Comment on above: Performed By: #### B BLOOD BANK ASSISTANT, CMP ####[facility] Eeqfaooltb9267[address] [place], [place] [address]Dr. Emelina Navarro Chloride [Moles/Vol] 100 mmol/L Normal 98-107 [facility] Comment on above: Performed By: #### B BLOOD BANK ASSISTANT, CMP ####[facility] Iewbywpcrv3211[address] [place], [place] [address]Dr. Emelina Navarro CO2 [Moles/Vol] 29.2 mmol/L Normal 21.0-32.0 [facility] Comment on above: Performed By: #### B BLOOD BANK ASSISTANT, CMP ####[facility] Tggmackfxp758[address] [place], [place] [address]Dr. Emelina Navarro Creatinine [Mass/Vol] 1.66 mg/dL Critically high 0.70-1.30 [facility] Comment on above: Performed By: #### B BLOOD BANK ASSISTANT, CMP ####[facility] Kncvgiqqou1911[address] [place], [place] [address]Dr. Emelina Navarro EGFR-AF GRENADIAN 50 mL/min/1.73m2 Critically low >=60 [facility] Comment on above: Performed By: #### B BLOOD BANK ASSISTANT, CMP ####[facility] Itqmnpmkst972[address] [place], [place] [address]Dr. Emelina Navarro EGFR-NON AF GRENADIAN 41 mL/min/1.73m2 Critically low >=60 [facility] Comment on above: Performed By: #### B BLOOD BANK ASSISTANT, CMP ####[facility] Fggeujkxyq1412[address] [place], [place] [address]Dr. Emelina Navarro Globulin (S) [Mass/Vol] 4.2 g/dL Normal [facility] Comment on above: Performed By: #### B BLOOD BANK ASSISTANT, CMP ####[facility] Sgpqejlklu6458[address] [place], [place] [address]Dr. Emelina Navarro Glucose [Mass/Vol] 126 mg/dL Critically high 74-106 T [facility] Comment on above: Performed By: #### B BLOOD BANK ASSISTANT, CMP ####[facility] Ruhziiapax15[address] [place], [place] [address]Dr. Emelina Navarro Potassium [Moles/Vol] 3.8 mmol/L Normal 3.5-5.1 [facility] Comment on above: Performed By: #### B BLOOD BANK ASSISTANT, CMP ####[facility] Tjuoysxcjd9515[address] [place], [place] [address]Dr. Emelina Navarro Protein [Mass/Vol] 6.9 g/dL Normal 6.4-8.2 [facility] Comment on above: Performed By: #### B BLOOD BANK ASSISTANT, CMP ####[facility] Zedzkjlcly[address] [place], [place] [address]Dr. Emelina Navarro Sodium [Moles/Vol] 137 mmol/L Normal 136-145 [facility] Comment on above: Performed By: #### B BLOOD BANK ASSISTANT, CMP ####[facility] Gktixcnzhi0413[address] [place], [place] [address]Dr. Emelina Navarro Urea nitrogen [Mass/Vol] 32.0 mg/dL Critically high 7.0-18.0 [facility] Comment on above: Performed By: #### B BLOOD BANK ASSISTANT, CMP ####[facility] Dyjptfrrjl27[address] [place], [place] [address]Dr. Emelina Navarro Urea nitrogen/Creatinine [Mass ratio] 19.3 mg/mg Normal [facility] Comment on above: Performed By: #### B BLOOD BANK ASSISTANT, CMP ####[facility] Nnxipozrqu5915[address] [place], [place] [address]Dr. Emelina Navarro PROTIMEon 03-28-2023 INR Coag (PPP) [Relative time] 2.59 {INR} Normal [facility] Comment on above: Performed By: #### P T ####[facility] Hkrkwbsvhz253[address] [place], [place] [address]Dr. Emelina Navarro INR GUIDELINES SEE BELOW Normal [facility] Comment on above: Result Comment: WENDY RED INR: 2.0 - 3.0 CONDITIONS NOT LISTED BELOW 2.5 - 3.5 FOR PROSTHETIC HEART VALVE REPLACEMENT 2.5 - 3.5 RECURRENT THROMBOSIS Performed By: #### P T ####[facility] Ueaeueevdm[address] [place] [address]Dr. Emelina Navarro PT Coag (PPP) [Time] 26.0 s Critically high 9.0-11.6 [facility] Comment on above: Performed By: #### P T ####[facility] Wclemnywlc[address] [place] [address]Dr. Emelina Navarro SED RATE ERGRENon 2022 SED RATE 62 mm/hr Critically high <=20 [facility] Comment on above: Performed By: #### S EDR ####[facility] Fmsluojjoi[address] [place], [place] [address]Dr. Emelina Navarro BNPon 03-27-2023 Natriuretic peptide B (Bld) [Mass/Vol] 53521.0 pg/mL Critically high <=900.0 [facility] Comment on above: Performed By: #### B BLOOD BANK ASSISTANT ####[facility] Qxupjzryqf12[address] [place], [place] [address]Dr. Emelina Navarro CARDIAC IMTIAZ 3-6on 3 CK [Catalytic activity/Vol] 59 U/L Normal 39-308 [facility] Comment on above: Performed By: #### C MREP ####[facility] Yeicsgnvio35[address] [place], [place] [address]Dr. Emelina Navarro CK.MB [Mass/Vol] 1.98 ng/mL Normal <=3.[address] [facility] Comment on above: Performed By: #### C MREP ####[facility] Tasnpfoubh[address] [place], [place] [address]Dr. Emelina Navarro HSTROP 52.5 pg/mL Normal 4.0-76.1 [facility] Comment on above: Result Comment: CUT- OFF POINTS HAVE BEEN ESTABLISHED BASED ON THE FOURTH UNIVERSAL DEFINITIONS OF MYOCARDIALINFARCTION. THE UPPER REFERENCE LIMIT (URL) OF TROPONIN, DEFINED THE 99TH PERCENTILE OFcTnI DISTRIBUTION IN A REFERENCE POPULATION, HAS BEEN CONFIRMED THE DECISION THRESHOLDFOR ND DIAGNOSIS. Performed By: #### C MREP ####[facility] Bzaexzflxj[address] [place], [place] [id number]. Emelina Navarro CK [Catalytic activity/Vol] 41 U/L Normal 39-308 [facility] Comment on above: Performed By: #### C MREP ####[facility] Cpejusgxrr[address] [place] [address]Dr. Emelina Navarro CK.MB [Mass/Vol] 1.26 ng/mL Normal <=3.[address] [facility] Comment on above: Performed By: #### C MREP ####[facility] Ptydsxgtjr5[address] [place] [address]Dr. Emelina Navarro HSTROP 49.5 pg/mL Normal 4.0-76.1 [facility] Comment on above: Result Comment: CUT- OFF POINTS HAVE BEEN ESTABLISHED BASED ON THE FOURTH UNIVERSAL DEFINITIONS OF MYOCARDIALINFARCTION. THE UPPER REFERENCE LIMIT (URL) OF TROPONIN, DEFINED THE 99TH PERCENTILE OFcTnI DISTRIBUTION IN A REFERENCE POPULATION, HAS BEEN CONFIRMED THE DECISION THRESHOLDFOR ND DIAGNOSIS. Performed By: #### C MREP ####[facility] [address]nbchbkyjd[address] [place] [address]Dr. Emelina Navarro CBC AUTO DIFFon 03-27-2023 BASO # 0.0 103/ul Normal 0.0-0.1 [facility] Comment on above: Performed By: #### C BC ####[facility] Zyqfdwujdt36[address] [place] [address]Dr. Emelina Navarro Basophils/100 WBC (Bld) 0.3 % Normal 0.2-2.0 [facility] Comment on above: Performed By: #### C BC ####[facility] Semldqpffl[address] [place] [address]Dr. Emelina Navarro EO # 0.4 103/ul Normal 0.0-0.7 [facility] Comment on above: Performed By: #### C BC ####[facility] Lnilkgpkmy17[address] [place] [address]Dr. Emelina Navarro Eosinophils/100 WBC (Bld) 3.3 % Normal 0.9-7.0 [facility] Comment on above: Performed By: #### C BC ####[facility] Tabbyfiyuu[address] [place] [address]Dr. Emelina Navarro Erythrocyte distribution width (RBC) [Ratio] 17.9 % Critically high 11.0-15.0 [facility] Comment on above: Performed By: #### C BC ####[facility] [address]fezhmgsi[address] [place] [address]Dr. Emelina Navarro Hematocrit (Bld) [Volume fraction] 42.3 % Normal 42.0-54.0 [facility] Comment on above: Performed By: #### C BC ####[facility] Dalur[address] [place], [place] [address]Dr. Emelina Navarro Hemoglobin (Bld) [Mass/Vol] 13.8 g/dL Critically low 14.0-18.0 [facility] Comment on above: Performed By: #### C BC ####[facility] Fnlsjslvuo[address] [place], [place] [address]Dr. Emelina Navarro IG # 0.07 10e3/ul Critically high 0.00-0.03 [facility] Comment on above: Performed By: #### C BC ####[facility] Lxuadqthfo17[address] [place], [place] [address]Dr. Awildanitza Navarro IG % 0.5 % Normal 0.0-0.5 [facility] Comment on above: Performed By: #### C BC ####[facility] Ewtpoyxtkc523[address] [place], [place] [address]Dr. Emelina Navarro LYMPH # 2.3 103/ul Normal 1.2-3.8 [facility] Comment on above: Performed By: #### C BC ####[facility] Mwvjusuoow[address] [place], [place] [id number]. Emelina Navarro Lymphocytes/100 WBC (Bld) 17.5 % Critically low 20.5-60.0 [facility] Comment on above: Performed By: #### C BC ####[facility] Rczpccnoid477[address] [place], [place] [address]Dr. Emelina Navarro MANUAL DIFF REQ NO Normal [facility] Comment on above: Performed By: #### C BC ####[facility] Tojbqtqjnd[address] [place] [id number]. Emelina Navarro MCH (RBC) [Entitic mass] 29.3 pg Normal 25.9-34.0 [facility] Comment on above: Performed By: #### C BC ####[facility] Wravokupzb[address] [place] [address]Dr. Emelina Navarro MCHC (RBC) [Mass/Vol] 32.6 g/dL Normal 29.9-35.2 [facility] Comment on above: Performed By: #### C BC ####[facility] Jbwngksbmv7[address] [place], [place] [address]Dr. Emelina Navarro MCV (RBC) [Entitic vol] 89.8 fL Normal 80.0-94.0 [facility] Comment on above: Performed By: #### C BC ####[facility] Ndwlplfqgd[address] [place], [place] [address]Dr. Emelina Navarro MONO # 1.0 103/ul Critically high 0.3-0.8 [facility] Comment on above: Performed By: #### C BC ####[facility] Uhxdcucexb425[address] [place], [place] [address]Dr. Emelina Navarro Monocytes/100 WBC (Bld) 7.8 % Normal 1.7-12.0 [facility] Comment on above: Performed By: #### C BC ####[facility] Zlixaqaimu[address] [place], [place] [address]Dr. Emelina Navarro NEUT # 9.3 103/ul Critically high 1.4-6.5 [facility] Comment on above: Performed By: #### C BC ####[facility] Ebffmgedvr[address] [place], [place] [address]Dr. Emelina Navarro Neutrophils/100 WBC (Bld) 70.6 % Normal 43.0-75.0 [facility] Comment on above: Performed By: #### C BC ####[facility] Rlqfxyzjax120347 [address] [place], [place] [address]Dr. Emelina Navarro Platelet mean volume (Bld) [Entitic vol] 9.6 fL Normal 9.5-13.5 [facility] Comment on above: Performed By: #### C BC ####[facility] Udkhqiqsux6535 [place] [id number]. Emelina Navarro PLT 248 103/ul Normal 150-450 [facility] Comment on above: Performed By: #### C BC ####[facility] Arynfvlrwz9868 [place] [phone]. Emelina Navarro RBC 4.71 106/ul Normal 4.70-6.10 [facility] Comment on above: Performed By: #### C BC ####[facility] Phghufjioc3056 [place] [phone]. Emelina Navarro WBC 13.2 103/ul Critically high 4.0-11.[address] [facility] Comment on above: Performed By: #### C BC ####[facility] Yljprfypqm0891 [place] [phone]. Emelina Navarro DIGOXINon 03-27-2023 DIG 1.1 ng/mL Normal 0.9-2.0 [facility] Comment on above: Performed By: #### D IG ####[facility] Nyozfxpfww6[address] [place] [phone]. Emelina Navarro LACTATE/LACTIC ACIDon 2022 Lactate [Moles/Vol] 0.8 mmol/L Normal 0.4-2.0 [facility] Comment on above: Performed By: #### L ACT ####[facility] Pvxrgphyds1232 [place] [phone]. Emelina Navarro LIPID PROFILEon 03-27-2023 CHOL-HDL RATIO NORM SEE BELOW Normal [facility] Comment on above: Result Comment: 3.3 - 4.4 LOW RISK 4.4 - 7.1 AVERAGE RISK 7.1 - 11.0 MODERATE RISK >11.0 HIGH RISK Performed By: #### L IPID, TSH ####[facility] Qbamrvkjgm[address] [place], [place] [address]Dr. Emelina Navarro Cholesterol [Mass/Vol] 86 mg/dL Normal <=200 [facility] Comment on above: Performed By: #### L IPID, TSH ####[facility] Pndtgwdcph[address] [place], [place] [id number]. Emelina Navarro Cholesterol in HDL [Mass/Vol] 29 mg/dL Critically low 40-60 [facility] Comment on above: Performed By: #### L IPID, TSH ####[facility] Elwkqubeeu3923 [place] [phone]. Emelina Navarro Cholesterol in LDL [Mass/Vol] 37.8 mg/dL Normal [facility] Comment on above: Performed By: #### L IPID, TSH ####[facility] Vyitpxtjix9263 [place] [address]Dr. Emelina Navarro Cholesterol.total/Cho lesterol in HDL [Mass ratio] 3.0 {ratio} Normal [facility] Comment on above: Performed By: #### L IPID, TSH ####[facility] Nmwnxbgdwa8175 [place] [address]Dr. Emelina Navarro HDL NORMAL > or = 60 mg/dl - LO W CARDIOVASCULAR RISK <40 mg/dl - HIGH CARDIOVASCULAR RISK Normal [facility] Comment on above: Performed By: #### L IPID, TSH ####[facility] Unfqyieqym2816 [place] [address]Dr. Emelina Navarro LDL CALC NORMAL SEE BELOW Normal [facility] Comment on above: Result Comment: <100 mg/dl OPTIMAL 100 - 129 mg/dl NEAR OR ABOVE OPTIMAL 130 - 159 mg/dl BORDERLINE HIGH 160 - 189 mg/dl HIGH >190 mg/dl VERY HIGH Performed By: #### L IPID, TSH ####[facility] Gpvazdivuq9[address] [place] [address]Dr. Emelina Navarro Triglyceride [Mass/Vol] 96 mg/dL Normal <=150 [facility] Comment on above: Performed By: #### L IPID, TSH ####[facility] Hveajayhkx5125 [place] [address]Dr. Emelina Navarro VLDL CALC 19.2 mg/dL Normal [facility] Comment on above: Performed By: #### L IPID, TSH ####[facility] Althilyshu5716 [place] [phone]. Emelina Navarro POINT OF CARE GLUCOSEon 05-0 9-2023 Glucose [Mass/Vol] 175 mg/dL Critically high 74-106 [facility] Comment on above: Performed By: #### P OCGLUC ####[facility] Opipjshaav34[address] [place], [place] [address]Dr. Emelina Navarro Glucose [Mass/Vol] 196 mg/dL Critically high 74-106 [facility] Comment on above: Performed By: #### P OCGLUC ####[facility] Ogvrnhczso58[address] [place], [place] [address]Dr. Emelina Navarro PROF 14(COMP METB)on 023 Albumin [Mass/Vol] 2.9 g/dL Critically low 3.4-5.0 [facility] Comment on above: Performed By: #### C MP ####[facility] Eivgrfcnuk59[address] [place], [place] [address]Dr. Emelina Navarro Albumin/Globulin [Mass ratio] 0.6 {ratio} Normal [facility] Comment on above: Performed By: #### C MP ####[facility] Ihotipuswd965[address] [place], [place] [address]Dr. Emelina Navarro ALP [Catalytic activity/Vol] 112 U/L Normal 46-116 [facility] Comment on above: Performed By: #### C MP ####[facility] Kuymrcgiss5623[address] [place], [place] [address]Dr. Emelina Navarro ALT [Catalytic activity/Vol] 23 U/L Normal 16-63 [facility] Comment on above: Performed By: #### C MP ####[facility] Fsouerjxkl[address] [place], [place] [address]Dr. Emelina Navarro Anion gap [Moles/Vol] 9.5 mmol/L Normal [facility] Comment on above: Performed By: #### C MP ####[facility] Gefnufeler[address] [place], [place] [address]Dr. Emelina Navarro AST [Catalytic activity/Vol] 30 U/L Normal 15-37 [facility] Comment on above: Performed By: #### C MP ####[facility] Jqkewedzkp399[address] [place], [place] [address]Dr. Emelina Navarro Bilirubin [Mass/Vol] 0.8 mg/dL Normal 0.2-1.0 [facility] Comment on above: Performed By: #### C MP ####[facility] Wltrzvkcvz55[address] [place], [place] [address]Dr. Emelina Navarro Calcium [Mass/Vol] 8.2 mg/dL Critically low 8.5-10.1 [facility] Comment on above: Performed By: #### C MP ####[facility] Bdewmigzuc7[address] [place], [place] [address]Dr. Emelina Navarro Chloride [Moles/Vol] 100 mmol/L Normal 98-107 [facility] Comment on above: Performed By: #### C MP ####[facility] Zvmrkkxhtd145[address] [place], [place] [address]Dr. Emelina Navarro CO2 [Moles/Vol] 32.9 mmol/L Critically high 21.0-32.0 [facility] Comment on above: Performed By: #### C MP ####[facility] Slomknuamz1832[address] [place], [place] [address]Dr. Emelina Navarro Creatinine [Mass/Vol] 1.60 mg/dL Critically high 0.70-1.30 [facility] Comment on above: Performed By: #### C MP ####[facility] Waasvmddfc4255[address] [place], [place] [address]Dr. Emelina Navarro EGFR-AF GRENADIAN 52 mL/min/1.73m2 Critically low >=60 [facility] Comment on above: Performed By: #### C MP ####[facility] Wbphuhzwwa75[address] [place], [place] [address]Dr. Emelina Navarro EGFR-NON AF GRENADIAN 43 mL/min/1.73m2 Critically low >=60 [facility] Comment on above: Performed By: #### C MP ####[facility] Vzgilxmlef44[address] [place], [place] [address]Dr. Emelina Navarro Globulin (S) [Mass/Vol] 4.6 g/dL Normal [facility] Comment on above: Performed By: #### C MP ####[facility] Xixfzynwvc[address] [place], [place] [address]Dr. Emelina Navarro Glucose [Mass/Vol] 76 mg/dL Normal 74-106 [facility] Comment on above: Performed By: #### C MP ####[facility] Qejpybkcet2524 [place] [address]Dr. Emelina Navarro Potassium [Moles/Vol] 3.4 mmol/L Critically low 3.5-5.1 [facility] Comment on above: Performed By: #### C MP ####[facility] Ffhwidanzg8339 [place] [address]Dr. Emelina Navarro Protein [Mass/Vol] 7.5 g/dL Normal 6.4-8.2 [facility] Comment on above: Performed By: #### C MP ####[facility] Nuilrschss30[address] [place], [place] [address]Dr. Emelina Navarro Sodium [Moles/Vol] 139 mmol/L Normal 136-145 [facility] Comment on above: Performed By: #### C MP ####[facility] Kelkgfneee[address] [place], [place] [address]Dr. Emelina Navarro Urea nitrogen [Mass/Vol] 30.0 mg/dL Critically high 7.0-18.0 [facility] Comment on above: Performed By: #### C MP ####[facility] Ffhnldwkup[address] [place], [place] [address]Dr. Emelina Navarro Urea nitrogen/Creatinine [Mass ratio] 18.8 mg/mg Normal [facility] Comment on above: Performed By: #### C MP ####[facility] Wynllbtlym[address] [place], [place] [address]Dr. Emelina Navarro PROTIMEon 03-27-2023 INR Coag (PPP) [Relative time] 2.58 {INR} Normal [facility] Comment on above: Performed By: #### P T ####[facility] Xmaarrkjrt380[address] [place], [place] [address]Dr. Emelina Navarro INR GUIDELINES SEE BELOW Normal [facility] Comment on above: Result Comment: WENDY RED INR: 2.0 - 3.0 CONDITIONS NOT LISTED BELOW 2.5 - 3.5 FOR PROSTHETIC HEART VALVE REPLACEMENT 2.5 - 3.5 RECURRENT THROMBOSIS Performed By: #### P T ####[facility] Ygoyzysiap8[address] [place] [address]Dr. Emelina Navarro PT Coag (PPP) [Time] 25.9 s Critically high 9.0-11.6 [facility] Comment on above: Performed By: #### P T ####[facility] Crxqgglyvw29[address] [place] [address]Dr. Emelina Navarro T4on 03-27-2023 T4 [Mass/Vol] 6.50 ug/dL Normal 4.50-12.10 [facility] Comment on above: Performed By: #### T 4 ####[facility] Dtwvysgejx8[address] [place], [place] [address]Dr. Emelina Navarro TSHon 03-27-2023 TSH 5.619 uIU/mL Critically high 0.358-3.74 0 [facility] Comment on above: Performed By: #### L IPID, TSH ####[facility] Huwwdzayhp[address] [place], [place] [address]DrWesley Navarro US FERNY DOP LEG RTon 03-27-20 23 US FERNY DOP LEG RT Normal [facility] XR CHEST 1 Von 03-27-2023 XR CHEST 1 V Normal [facility] XR FOOT RT MIN 3 VIEWSon XR FOOT RT MIN 3 VIEWS Normal [facility] BNPon 03-26-2023 Natriuretic peptide B (Bld) [Mass/Vol] 07501.0 pg/mL Critically high <=900.0 [facility] Comment on above: Performed By: #### B MP, CRP, CMADM, BNP ####[facility] Fzuuzvzdrq4246 [place] [address]Dr. Emelina Navarro CARDIAC IMTIAZ ADMITon 023 CK [Catalytic activity/Vol] 48 U/L Normal 39-308 [facility] Comment on above: Performed By: #### B MP, CRP, CMADM, BNP ####[facility] Avciqgvvaf8520 [place] [address]Dr. Emelina Navarro CK.MB [Mass/Vol] 1.48 ng/mL Normal <=3.[address] [facility] Comment on above: Performed By: #### B MP, CRP, CMADM, BNP ####[facility] Weweultjyb28[address] [place] [address]Dr. Emelina Ramon HSTROP 49.9 pg/mL Normal 4.0-76.1 [facility] Comment on above: Result Comment: CUT- OFF POINTS HAVE BEEN ESTABLISHED BASED ON THE FOURTH UNIVERSAL DEFINITIONS OF MYOCARDIALINFARCTION. THE UPPER REFERENCE LIMIT (URL) OF TROPONIN, DEFINED THE 99TH PERCENTILE OFcTnI DISTRIBUTION IN A REFERENCE POPULATION, HAS BEEN CONFIRMED THE DECISION THRESHOLDFOR ND DIAGNOSIS. Performed By: #### B MP, CRP, CMADM, BNP ####[facility] I[address]mlbcknm5454 [place] [address]Dr. Emelina Navarro URBANO 117 ng/mL Critically high 16-96 [facility] Comment on above: Performed By: #### B MP, CRP, CMADM, BNP ####[facility] Pskjjuqzzo39[address] [place], [place] [address]Dr. Emelina Navarro CBC AUTO DIFFon 03-26-2023 BASO # 0.1 103/ul Normal 0.0-0.1 [facility] Comment on above: Performed By: #### C BC ####[facility] Wgwwhwdkec[address] [place], [place] [address]Dr. Emelina Navarro Basophils/100 WBC (Bld) 0.4 % Normal 0.2-2.0 [facility] Comment on above: Performed By: #### C BC ####[facility] Unvxhprpre3213[address] [place], [place] [address]Dr. Emelina Navarro EO # 0.5 103/ul Normal 0.0-0.7 [facility] Comment on above: Performed By: #### C BC ####[facility] Fqldporusm2739[address] [place], [place] [address]Dr. Emelina Navarro Eosinophils/100 WBC (Bld) 3.5 % Normal 0.9-7.0 [facility] Comment on above: Performed By: #### C BC ####[facility] Oxmuipuscf924[address] [place], [place] [address]Dr. Emelina Navarro Erythrocyte distribution width (RBC) [Ratio] 17.7 % Critically high 11.0-15.0 [facility] Comment on above: Performed By: #### C BC ####[facility] Axzilwgewb8503 [place] [address]DrWesley Navarro Hematocrit (Bld) [Volume fraction] 42.6 % Normal 42.0-54.0 [facility] Comment on above: Performed By: #### C BC ####[facility] Eikdodimwp377[address] [place], [place] [address]DrWesley Navarro Hemoglobin (Bld) [Mass/Vol] 14.2 g/dL Normal 14.0-18.0 [facility] Comment on above: Performed By: #### C BC ####[facility] Ozwsxeouog89[address] [place], [place] [address]DrWesley Navarro IG # 0.09 10e3/ul Critically high 0.00-0.03 [facility] Comment on above: Performed By: #### C BC ####[facility] Himvewquxu9127[address] [place], [place] [address]DrWesley Navarro IG % 0.7 % Critically high 0.0-0.5 [facility] Comment on above: Performed By: #### C BC ####[facility] Vgpsotfwwy[address] [place], [place] [address]DrWesley Navarro LYMPH # 2.3 103/ul Normal 1.2-3.8 [facility] Comment on above: Performed By: #### C BC ####[facility] Psoqncsixo[address] [place], [place] [address]DrWesley Navarro Lymphocytes/100 WBC (Bld) 17.3 % Critically low 20.5-60.0 [facility] Comment on above: Performed By: #### C BC ####[facility] Bvwycylwbn902[address] [place], [place] [address]DrWesley Navarro MANUAL DIFF REQ NO Normal [facility] Comment on above: Performed By: #### C BC ####[facility] Ighghnyxzj209[address] [place], [place] [address]DrWesley Navarro MCH (RBC) [Entitic mass] 29.6 pg Normal 25.9-34.0 [facility] Comment on above: Performed By: #### C BC ####[facility] Dxpoghlyiq0083 [place] [address]Dr. Emelina Navarro MCHC (RBC) [Mass/Vol] 33.3 g/dL Normal 29.9-35.2 [facility] Comment on above: Performed By: #### C BC ####[facility] Ltfcfprxvl907[address] [place], [place] [address]DrWesley Navarro MCV (RBC) [Entitic vol] 88.9 fL Normal 80.0-94.0 [facility] Comment on above: Performed By: #### C BC ####[facility] Essblpsuaa[address] [place], [place] [address]Dr. Emelina Navarro MONO # 1.3 103/ul Critically high 0.3-0.8 [facility] Comment on above: Performed By: #### C BC ####[facility] Jynhgnrrcy6212[address] [place], [place] [address]Dr. Emelina Navarro Monocytes/100 WBC (Bld) 9.7 % Normal 1.7-12.0 [facility] Comment on above: Performed By: #### C BC ####[facility] Jbxkjrjihx[address] [place], [place] [address]DrWesley Navarro NEUT # 9.2 103/ul Critically high 1.4-6.5 [facility] Comment on above: Performed By: #### C BC ####[facility] Vnchzcwasa4225[address] [place], [place] [address]Dr. Emelina Navarro Neutrophils/100 WBC (Bld) 68.4 % Normal 43.0-75.0 [facility] Comment on above: Performed By: #### C BC ####[facility] Yhgptuhtam9[address] [place], [place] [address]Dr. Emelina Navarro Platelet mean volume (Bld) [Entitic vol] 9.6 fL Normal 9.5-13.5 [facility] Comment on above: Performed By: #### C BC ####[facility] Duvsvhzdhg59[address] [place], [place] [address]Dr. Emelina Navarro PLT 271 103/ul Normal 150-450 [facility] Comment on above: Performed By: #### C BC ####[facility] Fwyjxapalz5[address] [place] [address]Dr. Emelina Navarro RBC 4.79 106/ul Normal 4.70-6.10 [facility] Comment on above: Performed By: #### C BC ####[facility] Xadyaatabm2952 [place] [address]Dr. Emelina Navarro WBC 13.4 103/ul Critically high 4.0-11.[address] [facility] Comment on above: Performed By: #### C BC ####[facility] Wavhewqdky0961 [place] [address]Dr. Awildanitza Ramon CRPon 03-26-2023 CRP 4.6 mg/dL Critically high <=1.0 [facility] Comment on above: Performed By: #### B MP, CRP, CMADM, BNP ####[facility] Zwemdljxzw8276 [place] [address]Dr. Emelina Navarro LACTATE/LACTIC ACIDon 2022 Lactate [Moles/Vol] 1.6 mmol/L Normal 0.4-2.0 [facility] Comment on above: Performed By: #### L ACT ####[facility] Ikhvcixmze[address] [place], [place] [address]Dr. Emelina Navarro PROF CHEM 8 (BAS METB)on Anion gap [Moles/Vol] 9.6 mmol/L Normal [facility] Comment on above: Performed By: #### B MP, CRP, CMADM, BNP ####[facility] Wsmzcojgng4618 [place] [address]Dr. Emelina Navarro Calcium [Mass/Vol] 8.4 mg/dL Critically low 8.5-10.1 [facility] Comment on above: Performed By: #### B MP, CRP, CMADM, BNP ####[facility] Zcjiegvbyw9504 [place] [address]Dr. Emelina Navarro Chloride [Moles/Vol] 102 mmol/L Normal 98-107 [facility] Comment on above: Performed By: #### B MP, CRP, CMADM, BNP ####[facility] Dwzvzppukv2640 [place] [address]Dr. Emelina Navarro CO2 [Moles/Vol] 30.9 mmol/L Normal 21.0-32.0 [facility] Comment on above: Performed By: #### B MP, CRP, CMADM, BNP ####[facility] Nkqezdmkvz1685 [place] [address]Dr. Emelina Navarro Creatinine [Mass/Vol] 1.73 mg/dL Critically high 0.70-1.30 [facility] Comment on above: Performed By: #### B MP, CRP, CMADM, BNP ####[facility] Suemampfmj82[address] [place], [place] [address]Dr. Emelina Navarro EGFR-AF GRENADIAN 48 mL/min/1.73m2 Critically low >=60 [facility] Comment on above: Performed By: #### B MP, CRP, CMADM, BNP ####[facility] Bbegofyvwt19[address] [place], [place] [address]Dr. Emelina Navarro EGFR-NON AF GRENADIAN 39 mL/min/1.73m2 Critically low >=60 [facility] Comment on above: Performed By: #### B MP, CRP, CMADM, BNP ####[facility] Xnovvxqpab5956 [place] [address]Dr. Emelina Navarro Glucose [Mass/Vol] 73 mg/dL Critically low 74-106 [facility] Comment on above: Performed By: #### B MP, CRP, CMADM, BNP ####[facility] Axavflyqlb0873 [place] [address]Dr. Emelina Navarro Potassium [Moles/Vol] 3.5 mmol/L Normal 3.5-5.1 [facility] Comment on above: Performed By: #### B MP, CRP, CMADM, BNP ####[facility] Ioshjxenhg8944 [place] [address]Dr. Emelina Navarro Sodium [Moles/Vol] 139 mmol/L Normal 136-145 [facility] Comment on above: Performed By: #### B MP, CRP, CMADM, BNP ####[facility] Twbvwobsxm3537 [place] [id number]. Emelina Navarro Urea nitrogen [Mass/Vol] 29.0 mg/dL Critically high 7.0-18.0 [facility] Comment on above: Performed By: #### B MP, CRP, CMADM, BNP ####[facility] Spvroaokxf88[address] [place] [id number]. Emelina Navarro Urea nitrogen/Creatinine [Mass ratio] 16.8 mg/mg Normal [facility] Comment on above: Performed By: #### B MP, CRP, CMADM, BNP ####[facility] Vkvyreibxr8192 [place] [address]Dr. Emelina Navarro [facility] SED RATE 60 mm/hr Critically high <=20 [facility] Comment on above: Performed By: #### S EDR ####[facility] Hktbevoevq3638 [place] [address]Dr. Emelina Navarro Office Visiton 03-21-2023 Follow-up visit [id number] Adwoa Porter 1955 M Date Provider Department [place] 03/21/2023 DAHIANA LOCKHART [facility] Family History Problem Relation Age of Onset Diabetes Mother Hypertension Mother Coronary artery disease Mother Family Status - Relation Status Age at Mother Level of Service:39211 PA OFFICE/OUTPATIENT ESTABLISHED MOD MDM 30-39 MIN Normal [facility] Basic Metabolic Panelon Anion gap [Moles/Vol] 13.7 mmol/L Normal 6.0-15.0 [facility] Comment on above: Order Comment: pt is non fasting Performed By: #### C BC, BMP #### [facility] [address] Calcium [Mass/Vol] 9.2 mg/dL Normal 8.6-10.3 [facility] Comment on above: Order Comment: pt is non fasting Result Comment: PERF ORMED BY: [facility] [address] [place] [address] PATHOLOGIST CUSTOMER SALES SERVICE MANAGER RAFA BYRNE M.D. Performed By: #### C BC, BMP #### [facility] [address] [place] [address] [place] Chloride [Moles/Vol] 94 mmol/L Low 98-107 [facility] Comment on above: Order Comment: pt is non fasting Performed By: #### C BC, BMP #### [facility] [address] [place] [address] [place] CO2 [Moles/Vol] 31.1 mmol/L High 21.0-31.0 [facility] Comment on above: Order Comment: pt is non fasting Performed By: #### C BC, BMP #### [facility] [address] Creatinine [Mass/Vol] 1.57 mg/dL High 0.70-1.30 [facility] Comment on above: Order Comment: pt is non fasting Performed By: #### C BC, BMP #### [facility] [address] [place] [address] [place] GFR/1.73 sq M.predicted MDRD (S/P/Bld) [Vol rate/Area] 47.712 mL/min/{1.73_m2} Normal [facility] Comment on above: Order Comment: pt is non fasting Performed By: #### C BC, BMP #### [facility] [address] [place] [address] [place] Glucose [Mass/Vol] 67 mg/dL Low 70-100 [facility] Comment on above: Order Comment: pt is non fasting Result Comment: [place] Glucose Reference Range is dependent on time and content of last meal. Glucose of more than 200 mg/dL in a nonstressed, ambulatory subject supports the diagnosis of Diabetes Mellitus. ADA recommended reference range Performed By: #### C BC, BMP #### [facility] [address] [place] [address] [place] Potassium [Moles/Vol] 3.8 mmol/L Normal 3.5-5.1 [facility] Comment on above: Order Comment: pt is non fasting Performed By: #### C BC, BMP #### [facility] [address] [place] [id number] [place] Sodium [Moles/Vol] 135 mmol/L Low 136-145 [facility] Comment on above: Order Comment: pt is non fasting Performed By: #### C BC, BMP #### [facility] [address] [place] [id number] [place] Urea nitrogen [Mass/Vol] 25 mg/dL Normal 7-25 [facility] Comment on above: Order Comment: pt is non fasting Performed By: #### C BC, BMP #### [facility] [address] [place] [id number] [place] Calcium [Mass/volume] in Ser um or PlasmaOrdered By: Yakov To on 02-21-2023 Calcium [Mass/Vol] 9.2 mg/dL 8.6-10.3 [facility] Carbon dioxide, total [Moles /volume] in Serum or PlasmaOrdered By: Yakov To on 02-21-2023 CO2 [Moles/Vol] 31.1 mmol/L 21.0-31.0 [facility] Chloride [Moles/volume] in S mary or PlasmaOrdered By: Yakov To on 02-21-2023 Chloride [Moles/Vol] 94 mmol/L 98-107 [facility] Creatinine [Mass/volume] in Serum or PlasmaOrdered By: Yakov To on 02-21-2023 Creatinine [Mass/Vol] 1.57 mg/dL 0.70-1.30 [facility] Glucose [Mass/volume] in Ser um or PlasmaOrdered By: Yakov To on 02-21-2023 Glucose [Mass/Vol] 67 mg/dL 70-100 [facility] Comment on above: ADA recommended refe rence rangeRandom Glucose Reference Range is dependent on time and content of last meal. Glucose of more than 200 mg/dL in a nonstressed, ambulatory subject supports the diagnosis of Diabetes Mellitus. No Panel InformationOrdered By: Yakov To on 02-21-2023 Estimated GFR (CKD-EPI) 47.712 mL/Min [facility] Creatinine Clearance (Chem N/A [facility] Potassium [Moles/volume] in Serum or PlasmaOrdered By: Yakov To on 02-21-2023 Potassium [Moles/Vol] 3.8 mmol/L 3.5-5.1 [facility] Serum or plasma anion gap de terminationOrdered By: Yakov To on 02-21-2023 Anion gap [Moles/Vol] 13.7 mmol/L 6.0-15.0 [facility] Sodium [Moles/volume] in Ser um or PlasmaOrdered By: Yakov To on 02-21-2023 Sodium [Moles/Vol] 135 mmol/L 136-145 [facility] Urea nitrogen [Mass/volume] in Serum or PlasmaOrdered By: Yakov To on 02-21-2023 Urea nitrogen [Mass/Vol] 25 mg/dL 7-25 [facility] A1C with Estimated Average G luon 02-14-2023 Glucose [Mass/Vol] 252 mg/dL Normal [facility] Comment on above: Result Comment: PERF ORMED BY: [place] [id number] PATHOLOGIST CUSTOMER SALES SERVICE MANAGER RAFA BYRNE M.D. Performed By: #### C BC, BMP #### [address] HbA1c (Bld) [Mass fraction] 10.4 % High 4.3-5.6 [facility] Comment on above: Result Comment: Incr eased risk for diabetes: 5.7 - 6.4 diabetes: >6.4 glycemic control for adults with diabetes: <7.0 Performed By: #### C BC, BMP #### [facility] [address] Basic Metabolic Panelon 01-18 Anion gap [Moles/Vol] 13.4 mmol/L Normal 6.0-15.0 [facility] Comment on above: Performed By: #### C BC, BMP #### [facility] [address] [place] [address] [place] Calcium [Mass/Vol] 9.1 mg/dL Normal 8.6-10.3 [facility] Comment on above: Performed By: #### C BC, BMP #### [facility] [address] Chloride [Moles/Vol] 95 mmol/L Low 98-107 [facility] Comment on above: Performed By: #### C BC, BMP #### [facility] [address] CO2 [Moles/Vol] 30.7 mmol/L Normal 21.0-31.0 [facility] Comment on above: Performed By: #### C BC, BMP #### [facility] [address] Creatinine [Mass/Vol] 1.65 mg/dL High 0.70-1.30 [facility] Comment on above: Performed By: #### C BC, BMP #### [facility] [address] [place] [address] [place] Creatinine Clr Calc Pharmacy 49.22 [facility] Comment on above: Performed By: #### C BC, BMP #### [facility] [address] [place] [address] [place] GFR/1.73 sq M.predicted MDRD (S/P/Bld) [Vol rate/Area] 44.950 mL/min/{1.73_m2} [facility] Comment on above: Performed By: #### C BC, BMP #### [facility] [address] Glucose [Mass/Vol] 193 mg/dL Significant change up 70-100 [facility] Comment on above: Result Comment: [place] Glucose Reference Range is dependent on time and content of last meal. Glucose of more than 200 mg/dL in a nonstressed, ambulatory subject supports the diagnosis of Diabetes Mellitus. ADA recommended reference range Performed By: #### C BC, BMP #### [facility] [address] Potassium [Moles/Vol] 3.1 mmol/L Low 3.5-5.1 [facility] Comment on above: Performed By: #### C MAHAD, BMP #### [facility] [address] [place] [id number] [place] Sodium [Moles/Vol] 136 mmol/L Significant change down 136-145 [facility] Comment on above: Performed By: #### C MAHAD, BMP #### [facility] [address] [place] [phone] [place] Urea nitrogen [Mass/Vol] 43 mg/dL High 7-25 [facility] Comment on above: Performed By: #### C MAHAD, BMP #### [facility] [address] [place] [id number] [place] Calcium [Mass/volume] in Ser um or PlasmaOrdered By: Yakov To on 02-14-2023 Calcium [Mass/Vol] 9.1 mg/dL 8.6-10.3 [facility] Carbon dioxide, total [Moles /volume] in Serum or PlasmaOrdered By: Yakov To on 02-14-2023 CO2 [Moles/Vol] 30.7 mmol/L 21.0-31.0 [facility] Chloride [Moles/volume] in S mary or PlasmaOrdered By: Yakov To on 02-14-2023 Chloride [Moles/Vol] 95 mmol/L 98-107 [facility] Creatinine [Mass/volume] in Serum or PlasmaOrdered By: Yakov To on 02-14-2023 Creatinine [Mass/Vol] 1.65 mg/dL 0.70-1.30 [facility] Glucose Glucometer (BldC) [M ass/Vol]Ordered By: Yakov To on 02-14-2023 Glucose [Mass/Vol] 197 mg/dL [facility] Comment on above: Random Glucose Refer ence Range is dependent on time and content of last meal. Glucose of more than 200 mg/dL in a nonstressed, ambulatory subject supports the diagnosis of Diabetes Mellitus. Glucose Poct Glucometerson 0 02-14-2023 Glucose [Mass/Vol] 197 mg/dL Normal [facility] Comment on above: Result Comment: [place] om Glucose Reference Range is dependent on time and content of last meal. Glucose of more than 200 mg/dL in a nonstressed, ambulatory subject supports the diagnosis of Diabetes Mellitus. PERFORMED BY: [place] [id number] PATHOLOGIST CUSTOMER SALES SERVICE MANAGER RAFA BYRNE M.D. Performed By: #### G LULS #### Point of Care testing , Glucose [Mass/Vol] 350 mg/dL Normal [facility] Comment on above: Result Comment: [place] om Glucose Reference Range is dependent on time and content of last meal. Glucose of more than 200 mg/dL in a nonstressed, ambulatory subject supports the diagnosis of Diabetes Mellitus. PERFORMED BY: [place] [id number] PATHOLOGIST CUSTOMER SALES SERVICE MANAGER RAFA BYRNE M.D. Performed By: #### C BC, BMP #### [address] Glucose [Mass/Vol] 216 mg/dL Normal [facility] Comment on above: Result Comment: [place] Glucose Reference Range is dependent on time and content of last meal. Glucose of more than 200 mg/dL in a nonstressed, ambulatory subject supports the diagnosis of Diabetes Mellitus. PERFORMED BY: [place] [id number] PATHOLOGIST CUSTOMER SALES SERVICE MANAGER RAFA BYRNE M.D. Performed By: #### G LULS #### Point of Care testing , Glucose [Mass/volume] in Ser um or PlasmaOrdered By: Yakov To on 02-14-2023 Glucose [Mass/Vol] 193 mg/dL 70-100 [facility] Comment on above: Delta: 400 on -[id number] [...] HbA1c (Bld) [Mass fraction] 10.4 % 4.3-5.6 [facility] Comment on above: Increased risk for d iabetes: 5.7 - 6.4diabetes: >6.4glycemic control for adults with diabetes: <7.0 Laboratory - Chemistry and C hemistry - challengeOrdered By: Yakov To on 02-14-2023 GFR/1.73 sq M.predicted MDRD (S/P/Bld) [Vol rate/Area] 44.950 mL/min/{1.73_m2} [facility] Laboratory - CoagulationOrde red By: Yakov To on 02-14-2023 PT Coag (PPP) [Time] 25.6 s 9.0-12.9 [facility] Magnesiumon 02-14-2023 Magnesium [Mass/Vol] 2.4 mg/dL Normal 1.9-2.7 [facility] Comment on above: Result Comment: PERF ORMED BY: [place] [id number] PATHOLOGIST CUSTOMER SALES SERVICE MANAGER RAFA BYRNE M.D. Performed By: #### C , BMP #### [address] Magnesium [Mass/volume] in S mary or PlasmaOrdered By: Yakov To on 02-14-2023 Magnesium [Mass/Vol] 2.4 mg/dL 1.9-2.7 [facility] No Panel InformationOrdered By: Yakov To on 02-14-2023 Pharmacy Creatinine Clearance (Chem 49.22 [facility] Platelet poor plasma interna tional normalized ratio (INR) by coagulation assay (relatOrdered By: Yakov To on 02-14-2023 INR Coag (PPP) [Relative time] 2.2 {INR} [facility] Comment on above: INR Therapeutic Rang e [...] 02-14-2023 Potassium [Moles/Vol] 3.7 mmol/L Normal 3.5-5.1 [facility] Comment on above: Result Comment: PERF ORMED BY: [place] [id number] PATHOLOGIST CUSTOMER SALES SERVICE MANAGER RAFA BYRNE M.D. Performed By: #### C BC, BMP #### [address] Potassium [Moles/Vol] 3.4 mmol/L Low 3.5-5.1 [facility] Comment on above: Result Comment: PERF ORMED BY: [place] [id number] PATHOLOGIST CUSTOMER SALES SERVICE MANAGER RAFA BYRNE M.D. Performed By: #### G LULS #### Point of Care testing , Potassium [Moles/volume] in Serum or PlasmaOrdered By: Yakov To on 02-14-2023 Potassium [Moles/Vol] 3.7 mmol/L 3.5-5.1 [facility] Prothrombin Time INRon 02-14 INR Coag (PPP) [Relative time] 2.2 {INR} Normal [facility] Comment on above: Result Comment: INR Therapeutic [...] heart valves: 3 - 4.5 PERFORMED BY: [place] [id number] PATHOLOGIST CUSTOMER SALES SERVICE MANAGER RAFA BYRNE M.D. Performed By: #### G LULS #### Point of Care testing , PT Coag (PPP) [Time] 25.6 s High 9.0-12.9 [facility] Comment on above: Performed By: #### G ALVARADO #### Point of Care testing , Serum or plasma anion gap de terminationOrdered By: Yakov oT on 02-14-2023 Anion gap [Moles/Vol] 13.4 mmol/L 6.0-15.0 [facility] Sodium [Moles/volume] in Ser um or PlasmaOrdered By: Yakov To on 02-14-2023 Sodium [Moles/Vol] 136 mmol/L 136-145 [facility] Comment on above: Delta: 129 on -1648 Urea nitrogen [Mass/volume] in Serum or PlasmaOrdered By: Yakov To on 02-14-2023 Urea nitrogen [Mass/Vol] 43 mg/dL 06-12 [facility] Activated partial thrombopla stin time (aPTT) in platelet poor plasma by coagulation aOrdered By: Angela Aden on 02-13-2023 aPTT Coag (PPP) [Time] 38.3 s 25.1-36.5 [facility] Alanine aminotransferase [En zymatic activity/volume] in Serum or PlasmaOrdered By: Angela Aden on 02-13-2023 ALT [Catalytic activity/Vol] 21 U/L [facility] Albumin [Mass/volume] in Ser um or Plasma by Bromocresol green (BCG) dye binding methoOrdered By: Angela Aden on 02-13-2023 Albumin BCG dye [Mass/Vol] 4.3 g/dL 3.5-5.7 [facility] Alkaline phosphatase [Enzyma tic activity/volume] in Serum or PlasmaOrdered By: Angela Aden on 02-13-2023 ALP [Catalytic activity/Vol] 98 U/L 34-104 [facility] Arterial Blood Gason 023 ABG Base Excess 5.2 mmol/L High -3.0-3.0 [facility] Comment on above: Performed By: #### A BG #### Point of Care testing , ABG Frac Inspired O2 21 % Normal [facility] Comment on above: Performed By: #### A BG #### Point of Care testing , ABG Oxygen Content 9.0 mmol/L Normal 6.6-9.7 [facility] Comment on above: Performed By: #### A BG #### Point of Care testing , ABG Oxygen Saturation 83.4 % Low 95.0-100.0 [facility] Comment on above: Performed By: #### A BG #### Point of Care testing , ABG PCO2 49.4 mm[Hg] High 35.0-45.0 [facility] Comment on above: Performed By: #### A BG #### Point of Care testing , ABG PH 7.42 Normal 7.35-7.45 [facility] Comment on above: Performed By: #### A BG #### Point of Care testing , ABG PO2 48.2 mm[Hg] Off scale low 80.0-100.0 [facility] Comment on above: Performed By: #### A BG #### Point of Care testing , CO2 [Moles/Vol] 32.7 mmol/L High 23.0-27.0 [facility] Comment on above: Performed By: #### A BG #### Point of Care testing , HCO3 (Bld) [Moles/Vol] 31.2 mmol/L High 23.0-29.0 [facility] Comment on above: Performed By: #### A BG #### Point of Care testing , Respiratory Critical Normal [facility] Comment on above: Result Comment: Crit ical Value called on: 02/13/2023 at 17:04 PERFORMED BY: [facility] [address] [place] [address] PATHOLOGIST CUSTOMER SALES SERVICE MANAGER RAFA BYRNE M.D. Performed By: #### A BG #### Point of Care testing , VBG Draw Site Venous Normal [facility] Comment on above: Performed By: #### A BG #### Point of Care testing , Aspartate aminotransferase [ Enzymatic activity/volume] in Serum or PlasmaOrdered By: Angela Aden on 02-13-2023 AST [Catalytic activity/Vol] 32 U/L 13-39 [facility] Basophils Auto (Bld) [#/Vol] Ordered By: Angela Aden on 02-13-2023 Basophils (Bld) [#/Vol] 0.1 10*3/uL 0.0-0.2 [facility] Basophils/100 WBC Auto (Bld) Ordered By: Angela Aden on 02-13-2023 Basophils/100 WBC (Bld) 0.6 % . [facility] Beta Hydroxybuterateon 02-13 Beta Hydroxybuterate 0.10 mmol/L Normal 0.02-0.27 [facility] Comment on above: Result Comment: PERF ORMED BY: [address] [id number] PATHOLOGIST CUSTOMER SALES SERVICE MANAGER RAFA BYRNE M.D. Performed By: #### G LULS #### Point of Care testing , Beta hydroxybutyrate [Moles/ volume] in Serum or PlasmaOrdered By: Angela Aden on 02-13-2023 Beta hydroxybutyrate [Moles/Vol] 0.10 mmol/L 0.02-0.27 [facility] Bilirubin Test strip Ql (U)O rdered By: Angela Aden on 02-13-2023 Bilirubin Ql (U) Negative Negative [facility] Bilirubin.total [Mass/volume ] in Serum or PlasmaOrdered By: Angela Aden on 02-13-2023 Bilirubin [Mass/Vol] 1.3 mg/dL 0.3-1.0 [facility] Comment on above: Samples from patient s who have taken Naproxen have shown spurious elevation in Total Bilirubin levels. A metabolite of Naproxen, O-desmethylnaproxen, has been shown to interfere with the Lazaro method for measuring Total Bilirubin. CT head/brain wo conon 02-13 CT head/brain wo con [facility] Main [address] [address] [address] Scan Report Signed Patient: Adwoa Porter MR#: [id number] 7 : 1955 Acct:[id number] Age/Sex: 67 / M ADM Date: 03/28/23 [...] Archana Perez M.D.02/13/2023 5:28 PM Dictation Location: [place] [address] Transcribed By: [facility] 02/13/231727 Dictated By: Archana Perez MD 02/13/231722 Signed By: 02/13/231727 Normal [facility] Calcium [Mass/volume] in Ser um or PlasmaOrdered By: Angela Aden on 02-13-2023 Calcium [Mass/Vol] 9.3 mg/dL 8.6-10.3 [facility] Carbon dioxide, total [Moles /volume] in Serum or PlasmaOrdered By: Angela Aden on 02-13-2023 CO2 [Moles/Vol] 31.6 mmol/L 21.0-31.0 [facility] Chloride [Moles/volume] in S mary or PlasmaOrdered By: Angela Aden on 02-13-2023 Chloride [Moles/Vol] 85 mmol/L 98-107 [facility] Color Auto (U)Ordered By: Miguel Aden on 02-13-2023 Color (U) Yellow Yellow [facility] Complete Blood Count Auto Di ffon 02-13-2023 Basophils (Bld) [#/Vol] 0.1 10*3/uL Normal 0.0-0.2 [facility] Comment on above: Result Comment: PERF ORMED BY: [facility] [place] [address] PATHOLOGIST CUSTOMER SALES SERVICE MANAGER RAFA BYRNE M.D. Performed By: #### G LULS #### Point of Care testing , Basophils/100 WBC (Bld) 0.6 % Normal . [facility] Comment on above: Performed By: #### G LULS #### Point of Care testing , Eosinophils (Bld) [#/Vol] 0.4 10*3/uL Normal 0.0-0.45 [facility] Comment on above: Performed By: #### G LULS #### Point of Care testing , Eosinophils/100 WBC (Bld) 2.9 % Normal . [facility] Comment on above: Performed By: #### G LULS #### Point of Care testing , Erythrocyte distribution width (RBC) [Ratio] 17.9 % High 12.0-14.8 [facility] Comment on above: Performed By: #### G LULS #### Point of Care testing , Hematocrit (Bld) [Volume fraction] 48.8 % Normal 38.8-50.0 [facility] Comment on above: Performed By: #### G LULS #### Point of Care testing , Hemoglobin (Bld) [Mass/Vol] 16.6 g/dL Normal 13.0-17.0 [facility] Comment on above: Performed By: #### G LULS #### Point of Care testing , Lymphocytes (Bld) [#/Vol] 2.1 10*3/uL Normal 1.00-4.8 [facility] Comment on above: Performed By: #### G LULS #### Point of Care testing , Lymphocytes/100 WBC (Bld) 17.7 % Normal . [facility] Comment on above: Performed By: #### Georgette CHILDERS #### Point of Care testing , MCH (RBC) [Entitic mass] 29.0 pg Normal 27.5-35.2 [facility] Comment on above: Performed By: #### Georgette MCKOYLS #### Point of Care testing , MCV (RBC) [Entitic vol] 85.2 fL Normal 83.5-101 [facility] Comment on above: Performed By: #### Georgette MCKOYLS #### Point of Care testing , Mean Corpuscular HGB Conc 34.0 g/dL Normal 32.5-35.6 [facility] Comment on above: Performed By: #### Georgette CHILDERS #### Point of Care testing , Monocytes (Bld) [#/Vol] 1.0 10*3/uL High 0.0-0.8 [facility] Comment on above: Performed By: #### Georgette CHILDERS #### Point of Care testing , Monocytes/100 WBC (Bld) 19.79 % Normal 0.00-20.00 [facility] Comment on above: Performed By: #### Georgette CHILDERS #### Point of Care testing , Monocytes/100 WBC (Bld) 8.0 % Normal . [facility] Comment on above: Performed By: #### Georgette CHILDERS #### Point of Care testing , Neutrophils (Bld) [#/Vol] 8.5 10*3/uL High 1.8-7.7 [facility] Comment on above: Performed By: #### Georgette MCKOYLS #### Point of Care testing , Neutrophils/100 WBC (Bld) 70.8 % Normal . [facility] Comment on above: Performed By: #### Georgette MCKOYLS #### Point of Care testing , NRBC% 0.1 /100{WBC} Normal 0-0.5 [facility] Comment on above: Performed By: #### Georgette MCKOYLS #### Point of Care testing , Platelet mean volume (Bld) [Entitic vol] 8.6 fL Normal 6.6-10.1 [facility] Comment on above: Performed By: #### Georgette MCKOYLS #### Point of Care testing , Platelets (Bld) [#/Vol] 218 10*3/uL Normal 150-450 [facility] Comment on above: Performed By: #### G EANLS #### Point of Care testing , RBC (Bld) [#/Vol] 5.72 10*6/uL High 3.90-5.60 [facility] Comment on above: Performed By: #### G EANLS #### Point of Care testing , WBC (Bld) [#/Vol] 12.0 10*3/uL High 4.1-10.5 [facility] Comment on above: Performed By: #### G ALVARADO #### Point of Care testing , Comprehensive Metabolic Pane bola 02-13-2023 Albumin [Mass/Vol] 4.3 g/dL Normal 3.5-5.7 [facility] Comment on above: Performed By: #### Georgette CHILDERS #### Point of Care testing , Albumin/Globulin [Mass ratio] 1.2 {ratio} Normal [facility] Comment on above: Performed By: #### G ALVARADO #### Point of Care testing , ALP [Catalytic activity/Vol] 98 U/L Normal 34-104 [facility] Comment on above: Performed By: #### G ALVAARDO #### Point of Care testing , ALT [Catalytic activity/Vol] 21 U/L Normal 7-52 [facility] Comment on above: Performed By: #### Georgette CHILDERS #### Point of Care testing , Anion gap [Moles/Vol] 15.3 mmol/L High 6.0-15.0 [facility] Comment on above: Performed By: #### G ALVARADO #### Point of Care testing , AST [Catalytic activity/Vol] 32 U/L Normal 13-39 [facility] Comment on above: Performed By: #### G EANLS #### Point of Care testing , Bilirubin [Mass/Vol] 1.3 mg/dL High 0.3-1.0 [facility] Comment on above: Result Comment: Samp les from patients who have taken Naproxen have shown spurious elevation in Total Bilirubin levels. A metabolite of Naproxen, O-desmethylnaproxen, has been shown to interfere with the Jendrassik-Grof method for measuring Total Bilirubin. Performed By: #### G LULS #### Point of Care testing , Calcium [Mass/Vol] 9.3 mg/dL Normal 8.6-10.3 [facility] Comment on above: Performed By: #### G LULS #### Point of Care testing , Chloride [Moles/Vol] 85 mmol/L Low 98-107 [facility] Comment on above: Performed By: #### G LULS #### Point of Care testing , CO2 [Moles/Vol] 31.6 mmol/L High 21.0-31.0 [facility] Comment on above: Performed By: #### G LULS #### Point of Care testing , Creatinine [Mass/Vol] 2.06 mg/dL High 0.70-1.30 [facility] Comment on above: Performed By: #### G LULS #### Point of Care testing , Creatinine Clr Calc Pharmacy 39.26 [facility] Comment on above: Performed By: #### G LULS #### Point of Care testing , GFR/1.73 sq M.predicted MDRD (S/P/Bld) [Vol rate/Area] 34.441 mL/min/{1.73_m2} [facility] Comment on above: Performed By: #### G LULS #### Point of Care testing , Globulin (S) [Mass/Vol] 3.6 g/dL [facility] Comment on above: Performed By: #### G LULS #### Point of Care testing , Glucose [Mass/Vol] 400 mg/dL High 70-100 [facility] Comment on above: Result Comment: [place] Glucose Reference Range is dependent on time and content of last meal. Glucose of more than 200 mg/dL in a nonstressed, ambulatory subject supports the diagnosis of Diabetes Mellitus. ADA recommended reference range Performed By: #### G LULS #### Point of Care testing , Potassium [Moles/Vol] 2.9 mmol/L Off scale low 3.5-5.1 [facility] Comment on above: Result Comment: Hemo lysis is present at a level that could interfere with the result. Performed By: #### G LULS #### Point of Care testing , Protein [Mass/Vol] 7.9 g/dL Normal 6.4-8.9 [facility] Comment on above: Performed By: #### G LULS #### Point of Care testing , Sodium [Moles/Vol] 129 mmol/L Low 136-145 [facility] Comment on above: Performed By: #### G LULS #### Point of Care testing , Urea nitrogen [Mass/Vol] 53 mg/dL High 7-25 [facility] Comment on above: Performed By: #### G LULS #### Point of Care testing , Creatinine [Mass/volume] in Serum or PlasmaOrdered By: Angela Aden on 02-13-2023 Creatinine [Mass/Vol] 2.06 mg/dL 0.70-1.30 [facility] ECG 12 lead ECGon 02-13-2023 ECG 12 lead ECG [place] [address] Electrocardiograph Report Signed Patient: Adwoa Porter MR#: [id number] 7 : 1955 Acct:[id number] Age/Sex: 67 / M ADM Date: 02/13/23 Loc: Room: [address] [place] [address] Type: ADM IN Attending Dr: Yakov To [...] Bifascicular block Confirmed by Alejandro DUNCAN DO ([id number]) on 02/13/2023 10:10:19 PM Referred By: Electronically Signed By:Alejandro DUNCAN DO Transcribed By: MUS Signed By Alejandro Duncan DO 0 02/13/23 2210 Normal [facility] Eosinophils Auto (Bld) [#/Vo l]Ordered By: Angela Aden on 02-13-2023 Eosinophils (Bld) [#/Vol] 0.4 10*3/uL 0.0-0.45 [facility] Eosinophils/100 WBC Auto (Bl d)Ordered By: Angela Aden on 02-13-2023 Eosinophils/100 WBC (Bld) 2.9 % . [facility] Erythrocyte distribution wid th Auto (RBC) [Ratio]Ordered By: Angela Aden on 02-13-2023 Erythrocyte distribution width (RBC) [Ratio] 17.9 % 12.0-14.8 [facility] Globulin Calc (S) [Mass/Vol] Ordered By: Angela Aden on 02-13-2023 Globulin (S) [Mass/Vol] 3.6 g/dL [facility] Glucose Glucometer (BldC) [M ass/Vol]Ordered By: Yakov To on 02-13-2023 Glucose [Mass/Vol] 216 mg/dL [facility] Comment on above: Random Glucose Refer ence Range is dependent on time and content of last meal. Glucose of more than 200 mg/dL in a nonstressed, ambulatory subject supports the diagnosis of Diabetes Mellitus. Glucose Poct Glucometerson 0 02-13-2023 Glucose [Mass/Vol] 76 mg/dL Normal [facility] Comment on above: Result Comment: [place] Glucose Reference Range is dependent on time and content of last meal. Glucose of more than 200 mg/dL in a nonstressed, ambulatory subject supports the diagnosis of Diabetes Mellitus. PERFORMED BY: [facility] [address] [place] [address] PATHOLOGIST CUSTOMER SALES SERVICE MANAGER RAFA BYRNE M.D. Performed By: #### G LULS #### Point of Care testing , Commemt1 [facility] Comment on above: Result Comment: Glu2 : WILL NOTIFY DR/RN PERFORMED BY: [facility] [address] [place] [address] PATHOLOGIST CUSTOMER SALES SERVICE MANAGER RAFA BYRNE M.D. Performed By: #### H H #### [facility] [address] Glucose [Mass/Vol] 560 mg/dL Off scale high [facility] Comment on above: Result Comment: [place] om Glucose Reference Range is dependent on time and content of last meal. Glucose of more than 200 mg/dL in a nonstressed, ambulatory subject supports the diagnosis of Diabetes Mellitus. Performed By: #### H H #### [facility] [address] [place] [address] [place] Glucose [Mass/volume] in Ser um or PlasmaOrdered By: Angela Aden on 02-13-2023 Glucose [Mass/Vol] 400 mg/dL 70-100 [facility] Comment on above: ADA recommended refe rence rangeRandom Glucose Reference Range is dependent on time and content of last meal. Glucose of more than 200 mg/dL in a nonstressed, ambulatory subject supports the diagnosis of Diabetes Mellitus. Hematocrit Auto (Bld) [Volum e fraction]Ordered By: Angela Aden on 02-13-2023 Hematocrit (Bld) [Volume fraction] 48.8 % 38.8-50.0 [facility] Hemoglobin [Mass/volume] in BloodOrdered By: Angela Aden on 02-13-2023 Hemoglobin (Bld) [Mass/Vol] 16.6 g/dL 13.0-17.0 [facility] Ketones Auto test strip (U) [Mass/Vol]Ordered By: Angela Aden on 02-13-2023 Ketones (U) [Mass/Vol] Negative Negative [facility] Laboratory - Chemistry and C hemistry - challengeOrdered By: Angela Aden on 02-13-2023 CO2 [Moles/Vol] 32.7 mmol/L 23.0-27.0 [facility] HCO3 (Bld) [Moles/Vol] 31.2 mmol/L 23.0-29.0 [facility] GFR/1.73 sq M.predicted MDRD (S/P/Bld) [Vol rate/Area] 34.441 mL/min/{1.73_m2} [facility] Laboratory - CoagulationOrde red By: Angela Aden on 02-13-2023 PT Coag (PPP) [Time] 26.1 s 9.0-12.9 [facility] Leukocytes [#/volume] correc morris for nucleated erythrocytes in Blood by Automated counOrdered By: Angela Aden on 02-13-2023 WBC corrected for nucl RBC Auto (Bld) [#/Vol] 12.0 10*3/uL 4.1-10.5 [facility] Lymphocytes Auto (Bld) [#/Vo l]Ordered By: Angela Aden on 02-13-2023 Lymphocytes (Bld) [#/Vol] 2.1 10*3/uL 1.00-4.8 [facility] Lymphocytes/100 WBC Auto (Bl d)Ordered By: Angela Aden on 02-13-2023 Lymphocytes/100 WBC (Bld) 17.7 % . [facility] MCH Auto (RBC) [Entitic mass ]Ordered By: Angela Aden on 02-13-2023 MCH (RBC) [Entitic mass] 29.0 pg 27.5-35.2 [facility] MCHC Auto (RBC) [Mass/Vol]Or dered By: Angela Aden on 02-13-2023 MCHC (RBC) [Mass/Vol] 34.0 g/dL 32.5-35.6 [facility] MCV Auto (RBC) [Entitic vol] Ordered By: Angela Aden on 02-13-2023 MCV (RBC) [Entitic vol] 85.2 fL 83.5-101 [facility] Magnesiumon 02-13-2023 Magnesium [Mass/Vol] 2.5 mg/dL Normal 1.9-2.7 [facility] Comment on above: Order Comment: Comme nt add on if possible Result Comment: PERF ORMED BY: [facility] [address] [place] [address] PATHOLOGIST CUSTOMER SALES SERVICE MANAGER RAFA BYRNE M.D. Performed By: #### G ALVARADO #### Point of Care testing , Magnesium [Mass/volume] in S mary or PlasmaOrdered By: Yakov To on 02-13-2023 Magnesium [Mass/Vol] 2.5 mg/dL 1.9-2.7 [facility] Monocyte distribution width [Entitic volume] in Blood by AutomatedOrdered By: Angela Aden on 02-13-2023 Monocyte distribution width Auto (Bld) [Entitic vol] 19.79 % 0.00-20.00 [facility] Monocytes Auto (Bld) [#/Vol] Ordered By: Angela Aden on 02-13-2023 Monocytes (Bld) [#/Vol] 1.0 10*3/uL 0.0-0.8 [facility] Monocytes/100 WBC Auto (Bld) Ordered By: Angela Aden on 02-13-2023 Monocytes/100 WBC (Bld) 8.0 % . [facility] Neutrophils Auto (Bld) [#/Vo l]Ordered By: Angela Aden on 02-13-2023 Neutrophils (Bld) [#/Vol] 8.5 10*3/uL 1.8-7.7 [facility] Neutrophils/100 WBC Auto (Bl d)Ordered By: Angela Aden on 02-13-2023 Neutrophils/100 WBC (Bld) 70.8 % . [facility] Nitrite Test strip Ql (U)Ord ered By: Angela Aden on 02-13-2023 Nitrite Ql (U) Negative Negative [facility] No Panel InformationOrdered By: Angela Aden on 02-13-2023 Arterial Blood Base Excess 5.2 mmol/L -3.0-3.0 [facility] Arterial Blood Oxygen Content 9.0 mmol/L 6.6-9.7 [facility] Arterial Blood Oxygen Saturation 83.4 % 95.0-100.0 [facility] Arterial Blood Partial Pressure CO2 49.4 mm[Hg] 35.0-45.0 [facility] Arterial Blood Partial Pressure O2 48.2 mm[Hg] 80.0-100.0 [facility] Arterial Blood pH 7.42 7.35-7.45 [facility] Blood Gas Critical Value See comment [facility] Comment on above: Critical Value kajal goodman on: 02/13/2023 at 17:04 Blood Gas Sample Site Venous Fir [facility] FiO2 21 % [facility] Pharmacy Creatinine Clearance (Chem 39.26 [facility] Bedside Glucose Comment See comment [facility] Comment on above: Glu2: WILL NOTIFY DR /RN Nucleated erythrocytes [Pres ence] in Blood by Automated countOrdered By: Angela Aden on 02-13-2023 Nucleated RBC Auto Ql (Bld) 0.1 /100{WBC} 0-0.5 [facility] Partial Thromboplastin Timeo n 02-13-2023 aPTT Coag (Bld) [Time] 38.3 s High 25.1-36.5 [facility] Comment on above: Result Comment: PERF ORMED BY: [place] [id number] PATHOLOGIST CUSTOMER SALES SERVICE MANAGER RAFA BYRNE M.D. Performed By: #### H H #### [address] Platelet mean volume Auto (B ld) [Entitic vol]Ordered By: Angela Aden on 02-13-2023 Platelet mean volume (Bld) [Entitic vol] 8.6 fL 6.6-10.1 [facility] Platelet poor plasma interna tional normalized ratio (INR) by coagulation assay (relatOrdered By: Angela Aden on 02-13-2023 INR Coag (PPP) [Relative time] 2.3 {INR} [facility] Comment on above: INR Therapeutic Rang e [...] 02-13-2023 Platelets (Bld) [#/Vol] 218 10*3/uL 150-450 [facility] Potassium [Moles/volume] in Serum or PlasmaOrdered By: Angela Aden on 02-13-2023 Potassium [Moles/Vol] 2.9 mmol/L 3.5-5.1 [facility] Comment on above: Hemolysis is present at a level that could interfere with the result. Protein Auto test strip (U) [Mass/Vol]Ordered By: Angela Aden on 02-13-2023 Protein (U) [Mass/Vol] Negative Negative [facility] Protein [Mass/volume] in Ser um or PlasmaOrdered By: Angela Aden on 02-13-2023 Protein [Mass/Vol] 7.9 g/dL 6.4-8.9 [facility] Prothrombin Time INRon 02-13 INR Coag (PPP) [Relative time] 2.3 {INR} Normal [facility] Comment on above: Result Comment: INR Therapeutic [...] Coag (PPP) [Time] 26.1 s High 9.0-12.9 [facility] Comment on above: Performed By: #### G ALVARADO #### Point of Care testing , RBC Auto (Bld) [#/Vol]Ordere d By: Angela Aden on 02-13-2023 RBC (Bld) [#/Vol] 5.72 10*6/uL 3.90-5.60 [facility] Serum or plasma albumin/glob ulin mass ratioOrdered By: Angela Aden on 02-13-2023 Albumin/Globulin [Mass ratio] 1.2 {ratio} [facility] Serum or plasma anion gap de terminationOrdered By: Angela Aden on 02-13-2023 Anion gap [Moles/Vol] 15.3 mmol/L 6.0-15.0 [facility] Sodium [Moles/volume] in Ser um or PlasmaOrdered By: Angela Aden on 02-13-2023 Sodium [Moles/Vol] 129 mmol/L 136-145 [facility] Specific gravity Auto test s trip (U) [Rel density]Ordered By: Angela Aden on 02-13-2023 Specific gravity (U) [Rel density] 1.018 1.001-1.03 0 [facility] Troponin I High Sensitivityo n 02-13-2023 Troponin I High Sensitivity 69.4 pg/mL Off scale high 0.0-20.0 [facility] Comment on above: Result Comment: Crit ical Result : Called to and read back by: PROMISE VIEIRA at: 02/13/2023 18:35:16 by:[id number] PERFORMED BY: [place] [id number] PATHOLOGIST CUSTOMER SALES SERVICE MANAGER RAFA BYRNE M.D. Performed By: #### H H #### [facility] [address] [place] [address] Troponin I.cardiac [Mass/vol ume] in Serum or Plasma by Detection limit <= 0.01 ng/Ordered By: Angela Aden on 02-13-2023 Troponin I.cardiac DL <= 0.01 ng/mL [Mass/Vol] 69.4 pg/mL 0.0-20.0 [facility] Comment on above: Critical Result : Ca lled to and read back by: PROMISE VIEIRA at: 02/13/2023 18:35:16 by:[id number] Urea nitrogen [Mass/volume] in Serum or PlasmaOrdered By: Angela Aden on 02-13-2023 Urea nitrogen [Mass/Vol] 53 mg/dL 06-12 [facility] Urinalysison 02-13-2023 Appearance (U) Clear Normal Clear [facility] Comment on above: Order Comment: Name Collection Type:: Clean-Voided Midstream Performed By: #### H H #### [place] [address] [place] Bilirubin,Urine Negative Normal Negative [facility] Comment on above: Order Comment: Name Collection Type:: Clean-Voided Midstream Performed By: #### H H #### [address] Color (U) Yellow Normal Yellow [facility] Comment on above: Order Comment: Name Collection Type:: Clean-Voided Midstream Performed By: #### H H #### [address] Glucose Ql (U) >=1000 High Normal [facility] Comment on above: Order Comment: Name Collection Type:: Clean-Voided Midstream Performed By: #### H H #### [address] Ketones Ql (U) Negative Normal Negative [facility] Comment on above: Order Comment: Name Collection Type:: Clean-Voided Midstream Performed By: #### H H #### [address] Leukocyte esterase Test strip Ql (U) Negative Normal Negative [facility] Comment on above: Order Comment: Name Collection Type:: Clean-Voided Midstream Performed By: #### H H #### [place] [address] [place] Nitrite,Urine Negative Normal Negative [facility] Comment on above: Order Comment: Name Collection Type:: Clean-Voided Midstream Performed By: #### H H #### [place] [address] [place] Occult Blood,Urine Negative Normal Negative [facility] Comment on above: Order Comment: Name Collection Type:: Clean-Voided Midstream Result Comment: PERF ORMED BY: [place] [id number] PATHOLOGIST CUSTOMER SALES SERVICE MANAGER RAFA BYRNE M.D. Performed By: #### H H #### [place] [address] [place] pH (U) 6.0 [pH] Normal 5.0-9.0 [facility] Comment on above: Order Comment: Name Collection Type:: Clean-Voided Midstream Performed By: #### H H #### [address] Protein,Urine Negative Normal Negative [facility] Comment on above: Order Comment: Name Collection Type:: Clean-Voided Midstream Performed By: #### H H #### [address] Specificy [place],Urine 1.018 Normal 1.001-1.03 0 [facility] Comment on above: Order Comment: Name Collection Type:: Clean-Voided Midstream Performed By: #### H H #### [address] Urobilinogen,Urine Normal Normal Normal [facility] Comment on above: Order Comment: Name Collection Type:: Clean-Voided Midstream Performed By: #### H H #### [address] Urine clarity by refractomet ry automatedOrdered By: Angela Aden on 02-13-2023 Clarity Refractometry automated (U) Clear Clear [facility] Urine glucose measurement by automated test strip (mass/volume)Ordered By: Angela Aden on 02-13-2023 Glucose Auto test strip (U) [Mass/Vol] >=1000 mg/dL Normal [facility] Urine hemoglobin detection b y automated test stripOrdered By: Angela Aden on 02-13-2023 Hemoglobin Auto test strip Ql (U) Negative Negative [facility] Urine leukocyte esterase det ection by automated test stripOrdered By: Angela Aden on 02-13-2023 Leukocyte esterase Auto test strip Ql (U) Negative Negative [facility] Urobilinogen Auto test strip (U) [Mass/Vol]Ordered By: Angela Aden on 02-13-2023 Urobilinogen (U) [Mass/Vol] Normal mg/dL Normal [facility] WBC Auto (Bld) [#/Vol]Ordere d By: Angela Aden on 02-13-2023 WBC (Bld) [#/Vol] 12.0 10*3/uL 4.1-10.5 [facility] XR chest 2V*on 02-13-2023 XR chest 2V* [facility] [place] [address] [place], [place] [id number] XRay Report Signed Patient: Adwoa Porter MR#: [id number] 7 : 1955 Acct:[id number] Age/Sex: 67 / M ADM Date: 02/13/23 Loc: ER Room: Type: [facility] ER Attending Dr: Copies to: Angela Aden [...] Archana Perez M.D.02/13/2023 5:39 PM Dictation Location: [place] [address] Transcribed By: [facility] 02/13/23 173 Dictated By: Archana Perez MD 02/13/23 173 Signed By: 02/13/23 173 Normal [facility] pH Auto test strip (U)Ordere d By: Agnela Aden on 02-13-2023 pH (U) 6.0 [pH] 5.0-9.0 [facility] BNPon 01-29-2023 Natriuretic peptide B (Bld) [Mass/Vol] 6099.0 pg/mL Critically high <=900.0 [facility] Comment on above: Performed By: #### C MP, BNP ####[facility] [address] [place] [address]Dr. Emelina Navarro CBC AUTO DIFFon 01-29-2023 BASO # 0.1 103/ul Normal 0.0-0.1 [facility] Comment on above: Performed By: #### C BC ####[facility] [address] [place], [place] [address]Dr. Emelina Ramon Basophils/100 WBC (Bld) 0.3 % Normal 0.2-2.0 [facility] Comment on above: Performed By: #### C BC ####[facility] [address] [place], [place] [address]Dr. Emelina Ramon EO # 0.3 103/ul Normal 0.0-0.7 [facility] Comment on above: Performed By: #### C BC ####[facility] [address] [place], [place] [address]Dr. Awildanitza Navarro Eosinophils/100 WBC (Bld) 1.9 % Normal 0.9-7.0 [facility] Comment on above: Performed By: #### C BC ####[facility] [address] [place], [place] [address]Dr. Emelina Navarro Erythrocyte distribution width (RBC) [Ratio] 18.5 % Critically high 11.0-15.0 [facility] Comment on above: Performed By: #### C BC ####[facility] [address] [place], [place] [address]Dr. Emelina Navarro Hematocrit (Bld) [Volume fraction] 49.7 % Normal 42.0-54.0 [facility] Comment on above: Performed By: #### C BC ####[facility] [address] [place], [place] [address]Dr. Emelina Navarro Hemoglobin (Bld) [Mass/Vol] 16.3 g/dL Normal 14.0-18.0 [facility] Comment on above: Performed By: #### C BC ####[facility] [address] [place], [place] [address]Dr. Emelina Navarro IG # 0.07 10e3/ul Critically high 0.00-0.03 [facility] Comment on above: Performed By: #### C BC ####[facility] [address] [place] [id number]. Emelina Navarro IG % 0.4 % Normal 0.0-0.5 [facility] Comment on above: Performed By: #### C BC ####[facility] [address] [place] [id number]. Emelina Navarro LYMPH # 2.6 103/ul Normal 1.2-3.8 [facility] Comment on above: Performed By: #### C BC ####[facility] [address] [place] [id number]. Emelina Navarro Lymphocytes/100 WBC (Bld) 16.9 % Critically low 20.5-60.0 [facility] Comment on above: Performed By: #### C BC ####[facility] [address] [place] [address]Dr. Emelina Navarro MANUAL DIFF REQ NO Normal [facility] Comment on above: Performed By: #### C BC ####[facility] [address] [place] [id number]. Emelina Navarro MCH (RBC) [Entitic mass] 28.4 pg Normal 25.9-34.0 [facility] Comment on above: Performed By: #### C BC ####[facility] [address] [place] [id number]. Emelina Navarro MCHC (RBC) [Mass/Vol] 32.8 g/dL Normal 29.9-35.2 [facility] Comment on above: Performed By: #### C BC ####[facility] [address] [place] [id number]. Emelina Navarro MCV (RBC) [Entitic vol] 86.6 fL Normal 80.0-94.0 [facility] Comment on above: Performed By: #### C BC ####[facility] [address] [place] [id number]. Emelina Ramon MONO # 1.2 103/ul Critically high 0.3-0.8 [facility] Comment on above: Performed By: #### C BC ####[facility] [address] [place] [phone]. Emelina Navarro Monocytes/100 WBC (Bld) 7.7 % Normal 1.7-12.0 [facility] Comment on above: Performed By: #### C BC ####[facility] [address] [place] [id number]. Emelina Navarro NEUT # 11.4 103/ul Critically high 1.4-6.[address] [facility] Comment on above: Performed By: #### C BC ####[facility] [address] [place] [address]Dr. Emelina Navarro Neutrophils/100 WBC (Bld) 72.8 % Normal 43.0-75.0 [facility] Comment on above: Performed By: #### C BC ####[facility] [address] [place], [place] [address]Dr. Emelina Navarro Platelet mean volume (Bld) [Entitic vol] 9.8 fL Normal 9.5-13.5 [facility] Comment on above: Performed By: #### C BC ####[facility] [address] [place], [place] [address]Dr. Emelina Navarro PLT 200 103/ul Normal 150-450 [facility] Comment on above: Performed By: #### C BC ####[facility] [address] [place] [address]Dr. Emelina Navarro RBC 5.74 106/ul Normal 4.70-6.10 [facility] Comment on above: Performed By: #### C BC ####[facility] [address] [place], [place] [address]Dr. Emelina Navarro WBC 15.6 103/ul Critically high 4.0-11.[address] [facility] Comment on above: Performed By: #### C BC ####[facility] [address] [place], [place] [address]Dr. Emelina Navarro DIGOXINon 01-29-2023 DIG 1.1 ng/mL Normal 0.9-2.0 [facility] Comment on above: Performed By: #### D IG ####[facility] [address] [place] [address]Dr. Emelina Navarro Office Visiton 01-29-2023 Follow-up visit [id number] Adwoa Porter 1955 M Date Provider Department Center 01/29/2023 KendyTIMONISHASUSHIL [facility] Family History Problem Relation Age of Onset Diabetes Mother Hypertension Mother Coronary artery disease Mother Family Status - Relation Status Age at Mother Level of Service:81432 PA OFFICE/OUTPATIENT ESTABLISHED MOD MDM 30-39 MIN Reason for Visit and Comments: Atrial Fibrillation [80] Coronary Artery Disease [187] Congestive Heart Failure [127] Normal [facility] PROF 14(COMP METB)on 023 Albumin [Mass/Vol] 3.8 g/dL Normal 3.4-5.0 [facility] Comment on above: Performed By: #### C MP, BNP ####[facility] [address] [place] [address]Dr. Emelina Navarro Albumin/Globulin [Mass ratio] 0.9 {ratio} Normal [facility] Comment on above: Performed By: #### C MP, BNP ####[facility] [address] [place] [address]Dr. Emelina Navarro ALP [Catalytic activity/Vol] 126 U/L Critically high 46-116 [facility] Comment on above: Performed By: #### C MP, BNP ####[facility] [address] [place] [address]Dr. Emelina Navarro ALT [Catalytic activity/Vol] 29 U/L Normal 16-63 [facility] Comment on above: Performed By: #### C MP, BNP ####[facility] [address] [place] [address]Dr. Emelina Navarro Anion gap [Moles/Vol] 12.2 mmol/L Normal [facility] Comment on above: Performed By: #### C MP, BNP ####[facility] [address] [place] [address]Dr. Emelina Navarro AST [Catalytic activity/Vol] 28 U/L Normal 15-37 [facility] Comment on above: Performed By: #### C MP, BNP ####[facility] [address] [place] [address]Dr. Emelina Ramon Bilirubin [Mass/Vol] 1.8 mg/dL Critically high 0.2-1.0 [facility] Comment on above: Performed By: #### C MP, BNP ####[facility] [address] [place], [place] [address]Dr. Emelina Navarro Calcium [Mass/Vol] 9.9 mg/dL Normal 8.5-10.1 [facility] Comment on above: Performed By: #### C MP, BNP ####[facility] [address] [place], [place] [address]Dr. Emelina Navarro Chloride [Moles/Vol] 96 mmol/L Critically low 98-107 [facility] Comment on above: Performed By: #### C MP, BNP ####[facility] Xlbfayfuwy94[address] [place], [place] [address]Dr. Emelina Ramon CO2 [Moles/Vol] 33.6 mmol/L Critically high 21.0-32.0 [facility] Comment on above: Performed By: #### C MP, BNP ####[facility] Vhyjgbgsjd2[address] [place], [place] [address]Dr. Emelina Ramon Creatinine [Mass/Vol] 1.66 mg/dL Critically high 0.70-1.30 [facility] Comment on above: Performed By: #### C MP, BNP ####[facility] Aekkeoeyak[address] [place], [place] [address]Dr. Emelina Ramon EGFR-AF GRENADIAN 50 mL/min/1.73m2 Critically low >=60 [facility] Comment on above: Performed By: #### C MP, BNP ####[facility] Ovjkxgevdf[address] [place], [place] [address]Dr. Emelina Navarro EGFR-NON AF GRENADIAN 41 mL/min/1.73m2 Critically low >=60 [facility] Comment on above: Performed By: #### C MP, BNP ####[facility] Fyutdewldn[address] [place], [place] [address]Dr. Emelina Navarro Globulin (S) [Mass/Vol] 4.3 g/dL Normal [facility] Comment on above: Performed By: #### C MP, BNP ####[facility] Xoaueemryb212[address] [place], [place] [address]Dr. Emelina Navarro Glucose [Mass/Vol] 218 mg/dL Critically high 74-106 T [facility] Comment on above: Performed By: #### C MP, BNP ####[facility] Jfyfucnthy75[address] [place], [place] [address]Dr. Emelina Navarro Potassium [Moles/Vol] 4.8 mmol/L Normal 3.5-5.1 [facility] Comment on above: Performed By: #### C MP, BNP ####[facility] Fjqebbshjn[address] [place], [place] [address]Dr. Emelina Navarro Protein [Mass/Vol] 8.1 g/dL Normal 6.4-8.2 [facility] Comment on above: Performed By: #### C MP, BNP ####[facility] Nmfxaxwkhn710[address] [place], [place] [address]Dr. Emelina Navarro Sodium [Moles/Vol] 137 mmol/L Normal 136-145 [facility] Comment on above: Performed By: #### C MP, BNP ####[facility] Gwxqvyibfo387[address] [place], [place] [address]Dr. Emelina Navarro Urea nitrogen [Mass/Vol] 31.0 mg/dL Critically high 7.0-18.0 [facility] Comment on above: Performed By: #### C MP, BNP ####[facility] Vtcwgilxms[address] [place], [place] [address]Dr. Emelina Navarro Urea nitrogen/Creatinine [Mass ratio] 18.7 mg/mg Normal [facility] Comment on above: Performed By: #### C MP, BNP ####[facility] Uobfzsubkw4859[address] [place], [place] [address]Dr. Emelina Navarro BNPon 01-11-2023 Natriuretic peptide B (Bld) [Mass/Vol] 6024.0 pg/mL Critically high <=900.0 [facility] Comment on above: Performed By: #### B BLOOD BANK ASSISTANT, CMP ####[facility] [address] [place] [phone]. Emelina Navarro CBC AUTO DIFFon 01-11-2023 BASO # 0.0 103/ul Normal 0.0-0.1 [facility] Comment on above: Performed By: #### C BC ####[facility] Banedczdiu[address] [place] [phone]. Emelina Navarro Basophils/100 WBC (Bld) 0.3 % Normal 0.2-2.0 [facility] Comment on above: Performed By: #### C BC ####[facility] Rdslyhikwg[address] [place], [place] [address]Dr. Emelina Navarro EO # 0.4 103/ul Normal 0.0-0.7 [facility] Comment on above: Performed By: #### C BC ####[facility] Puyhgevkyj09[address] [place], [place] [address]Dr. Emelina Ramon Eosinophils/100 WBC (Bld) 3.3 % Normal 0.9-7.0 [facility] Comment on above: Performed By: #### C BC ####[facility] Abwgtosffp1025[address] [place], [place] [address]Dr. Emelina Navarro Erythrocyte distribution width (RBC) [Ratio] 16.7 % Critically high 11.0-15.0 [facility] Comment on above: Performed By: #### C BC ####[facility] Peylvvzqgk49[address] [place], [place] [address]Dr. Emelina Navarro Hematocrit (Bld) [Volume fraction] 41.5 % Critically low 42.0-54.0 [facility] Comment on above: Performed By: #### C BC ####[facility] Rrxwkfkxwl6[address] [place], [place] [address]Dr. Emelina Navarro Hemoglobin (Bld) [Mass/Vol] 13.8 g/dL Critically low 14.0-18.0 [facility] Comment on above: Performed By: #### C BC ####[facility] Aaanmteyrf0637[address] [place], [place] [address]Dr. Awildanitza Navarro IG # 0.04 10e3/ul Critically high 0.00-0.03 [facility] Comment on above: Performed By: #### C BC ####[facility] Rjhmtrnxie25[address] [place] [phone] Emelina Ramon IG % 0.3 % Normal 0.0-0.5 [facility] Comment on above: Performed By: #### C BC ####[facility] Ameiiwjvec4[address] [place] [phone] Emelina Ramon LYMPH # 1.8 103/ul Normal 1.2-3.8 [facility] Comment on above: Performed By: #### C BC ####[facility] Rknriwyjkc9[address] [place] [phone] Awildanitza Navarro Lymphocytes/100 WBC (Bld) 15.1 % Critically low 20.5-60.0 [facility] Comment on above: Performed By: #### C BC ####[facility] [address]rpb[address] [place] [address]DrWesley Navarro MANUAL DIFF REQ NO Normal [facility] Comment on above: Performed By: #### C BC ####[facility] Semlxivdxo8305 [place] [phone] Emelina Ramon MCH (RBC) [Entitic mass] 29.0 pg Normal 25.9-34.0 [facility] Comment on above: Performed By: #### C BC ####[facility] Rphdjtkwnt3804 [place] [phone] Emelina Ramon MCHC (RBC) [Mass/Vol] 33.3 g/dL Normal 29.9-35.2 [facility] Comment on above: Performed By: #### C BC ####[facility] Ahshrxwzto2239 [place] [phone] Emelina Ramon MCV (RBC) [Entitic vol] 87.2 fL Normal 80.0-94.0 [facility] Comment on above: Performed By: #### C BC ####[facility] Fbjazyexkj26[address] [place] [phone] Navarro MONO # 0.7 103/ul Normal 0.3-0.8 [facility] Comment on above: Performed By: #### C BC ####[facility] Homumyjouc060[address] [place] [phone]. Emelina Navarro Monocytes/100 WBC (Bld) 5.9 % Normal 1.7-12.0 [facility] Comment on above: Performed By: #### C BC ####[facility] Dneectxpmg5810 [place] [phone]. Emelina Navarro NEUT # 8.9 103/ul Critically high 1.4-6.5 [facility] Comment on above: Performed By: #### C BC ####[facility] Weihnzpjyr3120 [place] [phone]. Emelina Navarro Neutrophils/100 WBC (Bld) 75.1 % Critically high 43.0-75.0 [facility] Comment on above: Performed By: #### C BC ####[facility] Sfxbqffwdp7758 [place] [phone]. Emelina Navarro Platelet mean volume (Bld) [Entitic vol] 11.7 fL Normal 9.5-13.5 [facility] Comment on above: Performed By: #### C BC ####[facility] Gvztozuegg5738 [place] [phone]. Emelina Navarro PLT 124 103/ul Critically low 150-450 [facility] Comment on above: Performed By: #### C BC ####[facility] Faufjhtotc2425 [place] [phone]. Emelina Navarro RBC 4.76 106/ul Normal 4.70-6.10 [facility] Comment on above: Performed By: #### C BC ####[facility] Euwvpaytxx5[address] [place] [phone]. Emelina Navarro WBC 11.8 103/ul Critically high 4.0-11.[address] [facility] Comment on above: Performed By: #### C BC ####[facility] Yviwhulfqr1807 [place] [phone]. Emelina Ramon POINT OF CARE GLUCOSEon 02-2 Glucose [Mass/Vol] 339 mg/dL Critically high 74-106 [facility] Comment on above: Performed By: #### P OCGLUC ####[facility] Zwsrbpayjb[address] [place] [address]Dr. Emelina Navarro PROF 14(COMP METB)on 023 Albumin [Mass/Vol] 3.3 g/dL Critically low 3.4-5.0 [facility] Comment on above: Performed By: #### B BLOOD BANK ASSISTANT, CMP ####[facility] Gwfuxoseia3210[address] [place], [place] [address]Dr. Emelina Navarro Albumin/Globulin [Mass ratio] 0.8 {ratio} Normal [facility] Comment on above: Performed By: #### B BLOOD BANK ASSISTANT, CMP ####[facility] Vdmmnngncn733[address] [place], [place] [address]Dr. Emelina Navarro ALP [Catalytic activity/Vol] 163 U/L Critically high 46-116 [facility] Comment on above: Performed By: #### B BLOOD BANK ASSISTANT, CMP ####[facility] Kwtifvrxyk350[address] [place], [place] [address]Dr. Emelina Navarro ALT [Catalytic activity/Vol] 27 U/L Normal 16-63 [facility] Comment on above: Performed By: #### B BLOOD BANK ASSISTANT, CMP ####[facility] Chijytbksd918[address] [place], [place] [address]Dr. Emelina Navarro Anion gap [Moles/Vol] 10.5 mmol/L Normal [facility] Comment on above: Performed By: #### B BLOOD BANK ASSISTANT, CMP ####[facility] Oczwptmrbe1714[address] [place], [place] [address]Dr. Emelina Navarro AST [Catalytic activity/Vol] 28 U/L Normal 15-37 [facility] Comment on above: Performed By: #### B BLOOD BANK ASSISTANT, CMP ####[facility] Xogpongvpd9955[address] [place], [place] [address]Dr. Emelina Navarro Bilirubin [Mass/Vol] 1.3 mg/dL Critically high 0.2-1.0 [facility] Comment on above: Performed By: #### B BLOOD BANK ASSISTANT, CMP ####[facility] Kndriugqws5767[address] [place], [place] [address]Dr. Emelina Navarro Calcium [Mass/Vol] 9.0 mg/dL Normal 8.5-10.1 [facility] Comment on above: Performed By: #### B BLOOD BANK ASSISTANT, CMP ####[facility] Xppeptaltz34[address] [place] [address]Dr. Emelina Navarro Chloride [Moles/Vol] 91 mmol/L Critically low 98-107 [facility] Comment on above: Performed By: #### B BLOOD BANK ASSISTANT, CMP ####[facility] Rnyyhqvbuu7634[address] [place], [place] [address]Dr. Emelina Navarro CO2 [Moles/Vol] 32.9 mmol/L Critically high 21.0-32.0 [facility] Comment on above: Performed By: #### B BLOOD BANK ASSISTANT, CMP ####[facility] Rxorwjpsei6868[address] [place], [place] [address]Dr. Emelina Navarro Creatinine [Mass/Vol] 1.84 mg/dL Critically high 0.70-1.30 [facility] Comment on above: Performed By: #### B BLOOD BANK ASSISTANT, CMP ####[facility] Xtdpzlkydo5617[address] [place], [place] [address]Dr. Emelina Navarro EGFR-AF GRENADIAN 45 mL/min/1.73m2 Critically low >=60 [facility] Comment on above: Performed By: #### B BLOOD BANK ASSISTANT, CMP ####[facility] Ygksnbljoo0928[address] [place], [place] [address]Dr. Emelina Navarro EGFR-NON AF GRE[place]DIAN 37 mL/min/1.73m2 Critically low >=60 [facility] Comment on above: Performed By: #### B BLOOD BANK ASSISTANT, CMP ####[facility] Crtthdmbfq9[address] [place] [address]Dr. Emelina Navarro Globulin (S) [Mass/Vol] 4.3 g/dL Normal [facility] Comment on above: Performed By: #### B BLOOD BANK ASSISTANT, CMP ####[facility] Lirjsdacgr93[address] [place] [address]Dr. Emelina Navarro Glucose [Mass/Vol] 305 mg/dL Critically high 74-106 [facility] Comment on above: Performed By: #### B BLOOD BANK ASSISTANT, CMP ####[facility] Jukpczensx886[address] [place], [place] [address]Dr. Emelina Navarro Potassium [Moles/Vol] 3.4 mmol/L Critically low 3.5-5.1 [facility] Comment on above: Performed By: #### B BLOOD BANK ASSISTANT, CMP ####[facility] Pqihrozljv0179[address] [place], [place] [address]Dr. Emelina Navarro Protein [Mass/Vol] 7.6 g/dL Normal 6.4-8.2 [facility] Comment on above: Performed By: #### B BLOOD BANK ASSISTANT, CMP ####[facility] Anxfagcigj3833[address] [place], [place] [address]Dr. Emelina Navarro Sodium [Moles/Vol] 131 mmol/L Critically low 136-145 [facility] Comment on above: Performed By: #### B BLOOD BANK ASSISTANT, CMP ####[facility] Qfmjlwshid986[address] [place], [place] [address]Dr. Emelina Navarro Urea nitrogen [Mass/Vol] 62.0 mg/dL Critically high 7.0-18.0 [facility] Comment on above: Performed By: #### B BLOOD BANK ASSISTANT, CMP ####[facility] Fomjfbndds4845[address] [place], [place] [address]Dr. Emelina Navarro Urea nitrogen/Creatinine [Mass ratio] 33.7 mg/mg Normal [facility] Comment on above: Performed By: #### B BLOOD BANK ASSISTANT, CMP ####[facility] Eyamifnnrm[address] [place], [place] [address]Dr. Emelina Navarro BNPon 01-10-2023 Natriuretic peptide B (Bld) [Mass/Vol] 8763.0 pg/mL Critically high <=900.0 [facility] Comment on above: Performed By: #### C MP, BNP ####[facility] Gyuwmooago719[address] [place], [place] [address]Dr. Emelina Navarro CBC AUTO DIFFon 01-10-2023 BASO # 0.0 103/ul Normal 0.0-0.1 [facility] Comment on above: Performed By: #### C BC ####[facility] Hicdumyugc[address] [place], [place] [address]Dr. Emelina Navarro Basophils/100 WBC (Bld) 0.4 % Normal 0.2-2.0 [facility] Comment on above: Performed By: #### C BC ####[facility] Chjczjieme7607[address] [place], [place] [address]Dr. Emelina Navarro EO # 0.3 103/ul Normal 0.0-0.7 [facility] Comment on above: Performed By: #### C BC ####[facility] Jdieqppeto0524[address] [place], [place] [address]Dr. Emelina Navarro Eosinophils/100 WBC (Bld) 2.8 % Normal 0.9-7.0 [facility] Comment on above: Performed By: #### C BC ####[facility] Eswyskxary9228[address] [place], [place] [address]Dr. Emelina Navarro Erythrocyte distribution width (RBC) [Ratio] 17.2 % Critically high 11.0-15.0 [facility] Comment on above: Performed By: #### C BC ####[facility] Uujgpvlzpe23[address] [place], [place] [address]Dr. Emelina Navarro Hematocrit (Bld) [Volume fraction] 42.1 % Normal 42.0-54.0 [facility] Comment on above: Performed By: #### C BC ####[facility] Mhjoykphip2[address] [place], [place] [address]Dr. Emelina Navarro Hemoglobin (Bld) [Mass/Vol] 13.3 g/dL Critically low 14.0-18.0 [facility] Comment on above: Performed By: #### C BC ####[facility] Wkjqqmtyph0314[address] [place], [place] [address]Dr. Emelina Navarro IG # 0.05 10e3/ul Critically high 0.00-0.03 [facility] Comment on above: Performed By: #### C BC ####[facility] Zgdpywhlea1157[address] [place], [place] [address]Dr. Emelina Navarro IG % 0.4 % Normal 0.0-0.5 [facility] Comment on above: Performed By: #### C BC ####[facility] Weqiwsjzzt5259[address] [place], [place] [address]Dr. Emelina Navarro LYMPH # 1.7 103/ul Normal 1.2-3.8 [facility] Comment on above: Performed By: #### C BC ####[facility] Vmcntbihqj39[address] [place] [address]Dr. Awildanitza Navarro Lymphocytes/100 WBC (Bld) 14.8 % Critically low 20.5-60.0 [facility] Comment on above: Performed By: #### C BC ####[facility] Ixmisqmkqz9232 [place] [address]Dr. Emelina Navarro MANUAL DIFF REQ NO Normal [facility] Comment on above: Performed By: #### C BC ####[facility] Dtviovtcsj6372 [place] [address]Dr. Emelina Navarro MCH (RBC) [Entitic mass] 28.4 pg Normal 25.9-34.0 [facility] Comment on above: Performed By: #### C BC ####[facility] Wjzkmsjhmc98[address] [place], [place] [address]Dr. Awildanitza Ramon MCHC (RBC) [Mass/Vol] 31.6 g/dL Normal 29.9-35.2 [facility] Comment on above: Performed By: #### C BC ####[facility] Cnopuwkvqk23[address] [place], [place] [address]Dr. Emelina Navarro MCV (RBC) [Entitic vol] 89.8 fL Normal 80.0-94.0 [facility] Comment on above: Performed By: #### C BC ####[facility] Doqxlflvmw7038 [place] [address]DrWesley Navarro MONO # 0.9 103/ul Critically high 0.3-0.8 [facility] Comment on above: Performed By: #### C BC ####[facility] Syivgwzarz6225[address] [place], [place] [address]DrWesley Navarro Monocytes/100 WBC (Bld) 7.6 % Normal 1.7-12.0 [facility] Comment on above: Performed By: #### C BC ####[facility] Bvfmwauval6734[address] [place], [place] [address]Dr. Emelina Navarro NEUT # 8.4 103/ul Critically high 1.4-6.5 [facility] Comment on above: Performed By: #### C BC ####[facility] Nqpmwjqxdb[address] [place] [address]Dr. Emelina Navarro Neutrophils/100 WBC (Bld) 74.0 % Normal 43.0-75.0 [facility] Comment on above: Performed By: #### C BC ####[facility] Gknlzptvrb33[address] [place] [address]Dr. Awildanitza Ramon Platelet mean volume (Bld) [Entitic vol] 11.1 fL Normal 9.5-13.5 [facility] Comment on above: Performed By: #### C BC ####[facility] Ukjexfztzw57[address] [place] [address]Dr. Emelina Navarro PLT 111 103/ul Critically low 150-450 [facility] Comment on above: Performed By: #### C BC ####[facility] Pclyzsmjyf05[address] [place] [address]Dr. Emelina Navarro RBC 4.69 106/ul Critically low 4.70-6.10 [facility] Comment on above: Performed By: #### C BC ####[facility] Cwepknggbc1746 [place] [address]Dr. Awildanitza Ramon WBC 11.4 103/ul Critically high 4.0-11.0 [facility] Comment on above: Performed By: #### C BC ####[facility] Xsonczjshv8189 [place] [address]DrWesley Navarro PROF 14(COMP METB)on 023 Albumin [Mass/Vol] 3.3 g/dL Critically low 3.4-5.0 [facility] Comment on above: Performed By: #### C MP, BNP ####[facility] Ntoyrhigai75[address] [place] [address]Dr. Emelina Navarro Albumin/Globulin [Mass ratio] 0.8 {ratio} Normal [facility] Comment on above: Performed By: #### C MP, BNP ####[facility] Fwqpypasrx3104 [place] [phone]. Emelina Navarro ALP [Catalytic activity/Vol] 165 U/L Critically high 46-116 [facility] Comment on above: Performed By: #### C MP, BNP ####[facility] Ksmnluhuxd05[address] [place] [address]Dr. Emelina Navarro ALT [Catalytic activity/Vol] 27 U/L Normal 16-63 [facility] Comment on above: Performed By: #### C MP, BNP ####[facility] Gxqjeogvmx82[address] [place], [place] [address]Dr. Emelina Navarro Anion gap [Moles/Vol] 9.5 mmol/L Normal [facility] Comment on above: Performed By: #### C MP, BNP ####[facility] Krpmwkkuxe7867[address] [place], [place] [address]Dr. Emelina Navarro AST [Catalytic activity/Vol] 24 U/L Normal 15-37 [facility] Comment on above: Performed By: #### C MP, BNP ####[facility] Dfuywkoqce6364[address] [place], [place] [address]Dr. Emelina Navarro Bilirubin [Mass/Vol] 1.3 mg/dL Critically high 0.2-1.0 [facility] Comment on above: Performed By: #### C MP, BNP ####[facility] Boyuucpokv6[address] [place], [place] [address]Dr. Emelina Navarro Calcium [Mass/Vol] 9.3 mg/dL Normal 8.5-10.1 [facility] Comment on above: Performed By: #### C MP, BNP ####[facility] Fwmipbmsuu3[address] [place] [address]Dr. Emelina Navarro Chloride [Moles/Vol] 93 mmol/L Critically low 98-107 [facility] Comment on above: Performed By: #### C MP, BNP ####[facility] Xwtyhoibso614[address] [place], [place] [address]Dr. Emelina Navarro CO2 [Moles/Vol] 36.4 mmol/L Critically high 21.0-32.0 [facility] Comment on above: Performed By: #### C MP, BNP ####[facility] Ouqjkjmeee1817 [place] [phone]. Emelina Navarro Creatinine [Mass/Vol] 1.99 mg/dL Critically high 0.70-1.30 [facility] Comment on above: Performed By: #### C MP, BNP ####[facility] Erkowdcvbk6587 [place] [phone]. Emelina Navarro EGFR-AF GRE[place]DIAN 41 mL/min/1.73m2 Critically low >=60 [facility] Comment on above: Performed By: #### C MP, BNP ####[facility] Cdyozvlznt6409 [place] [address]Dr. Emelina Ramon EGFR-NON AF GRE[place]DIAN 34 mL/min/1.73m2 Critically low >=60 [facility] Comment on above: Performed By: #### C MP, BNP ####[facility] Gqwcjqwuhm[address] [place], [place] [address]Dr. Emelina Ramon Globulin (S) [Mass/Vol] 4.2 g/dL Normal [facility] Comment on above: Performed By: #### C MP, BNP ####[facility] Cqimukxyid6[address] [place], [place] [address]Dr. Emelina Ramon Glucose [Mass/Vol] 311 mg/dL Critically high 74-106 T [facility] Comment on above: Performed By: #### C MP, BNP ####[facility] Vohcbassza9960[address] [place], [place] [address]Dr. Emelina Ramon Potassium [Moles/Vol] 3.9 mmol/L Normal 3.5-5.1 [facility] Comment on above: Performed By: #### C MP, BNP ####[facility] Evscgqgdhe[address] [place], [place] [id number]. Emelina Navarro Protein [Mass/Vol] 7.5 g/dL Normal 6.4-8.2 [facility] Comment on above: Performed By: #### C MP, BNP ####[facility] Awkzerjkdl9047[address] [place], [place] [address]Dr. Awildanitza Ramon Sodium [Moles/Vol] 135 mmol/L Critically low 136-145 [facility] Comment on above: Performed By: #### C MP, BNP ####[facility] Zmkfnfwtrt2375[address] [place], [place] [address]Dr. Emelina Navarro Urea nitrogen [Mass/Vol] 57.0 mg/dL Critically high 7.0-18.0 [facility] Comment on above: Performed By: #### C MP, BNP ####[facility] Otkiznmtcb119[address] [place], [place] [address]Dr. Emelina Navarro Urea nitrogen/Creatinine [Mass ratio] 28.6 mg/mg Normal [facility] Comment on above: Performed By: #### C MP, BNP ####[facility] Pwnohkhoem[address] [place], [place] [address]Dr. Emelina Navarro BNPon 01-09-2023 Natriuretic peptide B (Bld) [Mass/Vol] 9097.0 pg/mL Critically high <=900.0 [facility] Comment on above: Performed By: #### B BLOOD BANK ASSISTANT, CMP ####[facility] Iqrapmvabi014[address] [place], [place] [address]Dr. Emelina Navarro CBC AUTO DIFFon 01-09-2023 BASO # 0.0 103/ul Normal 0.0-0.1 [facility] Comment on above: Performed By: #### C BC ####[facility] Rlenasynlw[address] [place], [place] [address]Dr. Emelina Navarro Basophils/100 WBC (Bld) 0.2 % Normal 0.2-2.0 [facility] Comment on above: Performed By: #### C BC ####[facility] Rgxpgufadw994[address] [place], [place] [address]Dr. Emelina Navarro EO # 0.2 103/ul Normal 0.0-0.7 [facility] Comment on above: Performed By: #### C BC ####[facility] Wjguhncfip60[address] [place], [place] [address]Dr. Emelina Navarro Eosinophils/100 WBC (Bld) 2.1 % Normal 0.9-7.0 [facility] Comment on above: Performed By: #### C BC ####[facility] Dultbabsth[address] [place] [address]Dr. Emelina Navarro Erythrocyte distribution width (RBC) [Ratio] 17.1 % Critically high 11.0-15.0 [facility] Comment on above: Performed By: #### C BC ####[facility] Wrugjhdsux[address] [place], [place] [address]Dr. Emelina Navarro Hematocrit (Bld) [Volume fraction] 40.5 % Critically low 42.0-54.0 [facility] Comment on above: Performed By: #### C BC ####[facility] Earnccrcqi249[address] [place], [place] [address]Dr. Awildanitza Navarro Hemoglobin (Bld) [Mass/Vol] 13.0 g/dL Critically low 14.0-18.0 [facility] Comment on above: Performed By: #### C BC ####[facility] Auqcrokytl[address] [place], [place] [address]Dr. Emelina Navarro IG # 0.06 10e3/ul Critically high 0.00-0.03 [facility] Comment on above: Performed By: #### C BC ####[facility] Mpvqhucxhc146[address] [place], [place] [address]Dr. Emelina Navarro IG % 0.5 % Normal 0.0-0.5 [facility] Comment on above: Performed By: #### C BC ####[facility] Cbonyifgfg[address] [place], [place] [address]Dr. Emelina Navarro LYMPH # 1.6 103/ul Normal 1.2-3.8 [facility] Comment on above: Performed By: #### C BC ####[facility] Xdrtodktlv95[address] [place], [place] [address]Dr. Emelina Navarro Lymphocytes/100 WBC (Bld) 14.1 % Critically low 20.5-60.0 [facility] Comment on above: Performed By: #### C BC ####[facility] Noxjjjtemr[address] [place], [place] [address]Dr. Emelina Navarro MANUAL DIFF REQ NO Normal [facility] Comment on above: Performed By: #### C BC ####[facility] Fpbzezovna05[address] [place], [place] [address]Dr. Emelina Navarro MCH (RBC) [Entitic mass] 28.4 pg Normal 25.9-34.0 [facility] Comment on above: Performed By: #### C BC ####[facility] Tulmqkenwz07[address] [place] [phone]. Emelina Navarro MCHC (RBC) [Mass/Vol] 32.1 g/dL Normal 29.9-35.2 [facility] Comment on above: Performed By: #### C BC ####[facility] Gohazkabwa34[address] [place] [phone]. Emelina Navarro MCV (RBC) [Entitic vol] 88.4 fL Normal 80.0-94.0 [facility] Comment on above: Performed By: #### C BC ####[facility] Jkkmaehhcb030[address] [place] [address]Dr. Emelina Navarro MONO # 0.9 103/ul Critically high 0.3-0.8 [facility] Comment on above: Performed By: #### C BC ####[facility] Xsakkenlbj4[address] [place] [address]Dr. Emelina Navarro Monocytes/100 WBC (Bld) 8.0 % Normal 1.7-12.0 [facility] Comment on above: Performed By: #### C BC ####[facility] Mtxxoyebrq3699 [place] [phone]. Emelina Navarro NEUT # 8.6 103/ul Critically high 1.4-6.5 [facility] Comment on above: Performed By: #### C BC ####[facility] Shwphxhskz7017 [place] [phone]. Emelina Navarro Neutrophils/100 WBC (Bld) 75.1 % Critically high 43.0-75.0 [facility] Comment on above: Performed By: #### C BC ####[facility] Psgelxiqdb8846 [place] [phone]. Emelina Navarro Platelet mean volume (Bld) [Entitic vol] 11.2 fL Normal 9.5-13.5 [facility] Comment on above: Performed By: #### C BC ####[facility] Txtshfvpny4477 [place], [place] [address]Ic. Emelina Navarro PLT 99 103/ul Critically low 150-450 [facility] Comment on above: Performed By: #### C BC ####[facility] Ewvarvzzse9618 [place], [place] [address]Sm. Emelina Navarro RBC 4.58 106/ul Critically low 4.70-6.10 [facility] Comment on above: Performed By: #### C BC ####[facility] Ehhxamnsfi5940 [place] [phone]. Emelina Navarro WBC 11.5 103/ul Critically high 4.0-11.0 [facility] Comment on above: Performed By: #### C BC ####[facility] Gkbhmqbfzv[address] [place] [address]Dr. Emelina Navarro CT HEAD WO CONon 01-09-2023 CT HEAD WO CON Normal [facility] PROF 14(COMP METB)on 023 Albumin [Mass/Vol] 3.2 g/dL Critically low 3.4-5.0 [facility] Comment on above: Performed By: #### B BLOOD BANK ASSISTANT, CMP ####[facility] Vknzruxwcr5284 [place] [address]Dr. Emelina Navarro Albumin/Globulin [Mass ratio] 0.8 {ratio} Normal [facility] Comment on above: Performed By: #### B BLOOD BANK ASSISTANT, CMP ####[facility] Gbijskjlca1334 [place] [phone]. Emelina Navarro ALP [Catalytic activity/Vol] 150 U/L Critically high 46-116 [facility] Comment on above: Performed By: #### B BLOOD BANK ASSISTANT, CMP ####[facility] Bmuksijkor7186 [place] [address]Dr. Emelina Ramon ALT [Catalytic activity/Vol] 27 U/L Normal 16-63 [facility] Comment on above: Performed By: #### B BLOOD BANK ASSISTANT, CMP ####[facility] Xujlvpbghn8208 [place] [phone]. Awildanitza Ramon Anion gap [Moles/Vol] 9.7 mmol/L Normal [facility] Comment on above: Performed By: #### B BLOOD BANK ASSISTANT, CMP ####[facility] Wyjwydqdgn[address] [place], [place] [address]Dr. Emelina Navarro AST [Catalytic activity/Vol] 29 U/L Normal 15-37 [facility] Comment on above: Performed By: #### B BLOOD BANK ASSISTANT, CMP ####[facility] Ngfrptnxjz2545[address] [place], [place] [address]Dr. Emelina Navarro Bilirubin [Mass/Vol] 1.3 mg/dL Critically high 0.2-1.0 [facility] Comment on above: Performed By: #### B BLOOD BANK ASSISTANT, CMP ####[facility] Ktonqpkycr34[address] [place], [place] [address]Dr. Awildanitza Navarro Calcium [Mass/Vol] 9.0 mg/dL Normal 8.5-10.1 [facility] Comment on above: Performed By: #### B BLOOD BANK ASSISTANT, CMP ####[facility] Xdwkdmcsfo3020[address] [place], [place] [address]Dr. Emelina Navarro Chloride [Moles/Vol] 93 mmol/L Critically low 98-107 [facility] Comment on above: Performed By: #### B BLOOD BANK ASSISTANT, CMP ####[facility] Oksjqjvmei145[address] [place], [place] [address]Dr. Emelina Navarro CO2 [Moles/Vol] 33.6 mmol/L Critically high 21.0-32.0 [facility] Comment on above: Performed By: #### B BLOOD BANK ASSISTANT, CMP ####[facility] Kufpiwvmim9510[address] [place], [place] [address]Dr. Awildanitza Ramon Creatinine [Mass/Vol] 1.75 mg/dL Critically high 0.70-1.30 [facility] Comment on above: Performed By: #### B BLOOD BANK ASSISTANT, CMP ####[facility] Xhfxhlrccs170[address] [place], [place] [address]Dr. Awildanitza Ramon EGFR-AF GRENADIAN 47 mL/min/1.73m2 Critically low >=60 [facility] Comment on above: Performed By: #### B BLOOD BANK ASSISTANT, CMP ####[facility] Kbbohdtakv132[address] [place], [place] [address]Dr. Emelina Navarro EGFR-NON AF GRENADIAN 39 mL/min/1.73m2 Critically low >=60 [facility] Comment on above: Performed By: #### B BLOOD BANK ASSISTANT, CMP ####[facility] Wsxiyufkrm7381 [place] [address]Dr. Emelina Navarro Globulin (S) [Mass/Vol] 4.1 g/dL Normal [facility] Comment on above: Performed By: #### B BLOOD BANK ASSISTANT, CMP ####[facility] Vqdjxycell4900[address] [place], [place] [address]Dr. Emelina Navarro Glucose [Mass/Vol] 235 mg/dL Critically high 74-106 T [facility] Comment on above: Performed By: #### B BLOOD BANK ASSISTANT, CMP ####[facility] Ejafnqvcju147[address] [place], [place] [address]Dr. Emelina Navarro Potassium [Moles/Vol] 3.3 mmol/L Critically low 3.5-5.1 [facility] Comment on above: Performed By: #### B BLOOD BANK ASSISTANT, CMP ####[facility] Rfowkshwjh1301[address] [place], [place] [address]Dr. Emelina Navarro Protein [Mass/Vol] 7.3 g/dL Normal 6.4-8.2 [facility] Comment on above: Performed By: #### B BLOOD BANK ASSISTANT, CMP ####[facility] Mffrhzgfgl25[address] [place], [place] [address]Dr. Emelina Navarro Sodium [Moles/Vol] 133 mmol/L Critically low 136-145 [facility] Comment on above: Performed By: #### B BLOOD BANK ASSISTANT, CMP ####[facility] Ndstczvofq7357[address] [place], [place] [address]Dr. Emelina Navarro Urea nitrogen [Mass/Vol] 50.0 mg/dL Critically high 7.0-18.0 [facility] Comment on above: Performed By: #### B BLOOD BANK ASSISTANT, CMP ####[facility] Ikdpmttqfq8885[address] [place], [place] [address]Dr. Emelina Navarro Urea nitrogen/Creatinine [Mass ratio] 28.6 mg/mg Normal [facility] Comment on above: Performed By: #### B BLOOD BANK ASSISTANT, CMP ####[facility] Shhypnuqld0461 [place] [phone]. Emelina Ramon BNPon 01-08-2023 Natriuretic peptide B (Bld) [Mass/Vol] 8174.0 pg/mL Critically high <=900.0 [facility] Comment on above: Performed By: #### B BLOOD BANK ASSISTANT ####[facility] Mqvovpbaeq28[address] [place], [place] [address]Dr. Emelina Ramon CBC AUTO DIFFon 01-08-2023 BASO # 0.0 103/ul Normal 0.0-0.1 [facility] Comment on above: Performed By: #### C BC ####[facility] Btqwgovcry3035[address] [place], [place] [address]Dr. Emelina Navarro Basophils/100 WBC (Bld) 0.2 % Normal 0.2-2.0 [facility] Comment on above: Performed By: #### C BC ####[facility] Otlmwnxalm49[address] [place], [place] [address]Dr. Emelina Navarro EO # 0.2 103/ul Normal 0.0-0.7 [facility] Comment on above: Performed By: #### C BC ####[facility] Sxwyfvvind[address] [place], [place] [address]Dr. Emelina Navarro Eosinophils/100 WBC (Bld) 1.7 % Normal 0.9-7.0 [facility] Comment on above: Performed By: #### C BC ####[facility] Vrysrxrmvu819[address] [place], [place] [address]Dr. Emelina Navarro Erythrocyte distribution width (RBC) [Ratio] 17.4 % Critically high 11.0-15.0 [facility] Comment on above: Performed By: #### C BC ####[facility] Ehfgendmds[address] [place], [place] [address]Dr. Emelina Navarro Hematocrit (Bld) [Volume fraction] 40.8 % Critically low 42.0-54.0 [facility] Comment on above: Performed By: #### C BC ####[facility] Vpifxrnaed[address] [place], [place] [address]Dr. Emelina Navarro Hemoglobin (Bld) [Mass/Vol] 13.3 g/dL Critically low 14.0-18.0 [facility] Comment on above: Performed By: #### C BC ####[facility] Nnyznaigvs7212 [place] [address]DrWesley Navarro IG # 0.05 10e3/ul Critically high 0.00-0.03 [facility] Comment on above: Performed By: #### C BC ####[facility] Hxbpxvjlpp0376 [place] [address]DrWesley Navarro IG % 0.4 % Normal 0.0-0.5 [facility] Comment on above: Performed By: #### C BC ####[facility] Lekacgzhev14[address] [place], [place] [address]DrWesley Navarro LYMPH # 1.7 103/ul Normal 1.2-3.8 [facility] Comment on above: Performed By: #### C BC ####[facility] Pntbhdjbmy3514 [place] [address]DrWesley Navarro Lymphocytes/100 WBC (Bld) 12.5 % Critically low 20.5-60.0 [facility] Comment on above: Performed By: #### C BC ####[facility] Imbzdljubw1155 [place] [address]DrWesley Navarro MANUAL DIFF REQ NO Normal [facility] Comment on above: Performed By: #### C BC ####[facility] Wjlcaxlfuz7195 [place] [address]DrWesley Navarro MCH (RBC) [Entitic mass] 29.1 pg Normal 25.9-34.0 [facility] Comment on above: Performed By: #### C BC ####[facility] Mifmrszolw3204 [place] [address]DrWesley Navarro MCHC (RBC) [Mass/Vol] 32.6 g/dL Normal 29.9-35.2 [facility] Comment on above: Performed By: #### C BC ####[facility] Pleajprsvi4594 [place] [address]DrWesley Navarro MCV (RBC) [Entitic vol] 89.3 fL Normal 80.0-94.0 [facility] Comment on above: Performed By: #### C BC ####[facility] Lmwuycvtza6438 [place] [phone] Navarro MONO # 1.0 103/ul Critically high 0.3-0.8 [facility] Comment on above: Performed By: #### C BC ####[facility] Nmbartfhqp4203 [place] [phone] Navarro Monocytes/100 WBC (Bld) 7.6 % Normal 1.7-12.0 [facility] Comment on above: Performed By: #### C BC ####[facility] Dovycmjsqd1642 [place] [address]DrWesley Navarro NEUT # 10.3 103/ul Critically high 1.4-6.[address] [facility] Comment on above: Performed By: #### C BC ####[facility] Dkhpwsicvd19[address] [place], [place] [address]DrWesley Navarro Neutrophils/100 WBC (Bld) 77.6 % Critically high 43.0-75.0 [facility] Comment on above: Performed By: #### C BC ####[facility] Lqeruhmxno[address] [place], [place] [phone] Navarro Platelet mean volume (Bld) [Entitic vol] 11.0 fL Normal 9.5-13.5 [facility] Comment on above: Performed By: #### C BC ####[facility] Xcrmxrnrsq8173 [place] [phone]. Emelina Navarro PLT 106 103/ul Critically low 150-450 [facility] Comment on above: Performed By: #### C BC ####[facility] Masngzlwdv2507 [place] [phone] Navarro RBC 4.57 106/ul Critically low 4.70-6.10 [facility] Comment on above: Performed By: #### C BC ####[facility] Lrsxairksp2395 [place] [phone] Navarro WBC 13.3 103/ul Critically high 4.0-11.0 [facility] Comment on above: Performed By: #### C BC ####[facility] Hwphaiahzv3955 [place] [address]DrWesley Emelina Ramon CULTURE URINEon 01-08-2023 CULTURE URINE Culture Observations : LIGHT GROWTH OF MIXED SKIN CEDRIC. NO POTENTIAL PATHOGENS SEEN. Normal [facility] Comment on above: Performed By: #### U RCX ####[facility] Kqkgdetprl9249 [place] [phone] Navarro ECHOCARDIO M/2D COMPLETEon 0 01-08-2023 ECHOCARDIO M/2D COMPLETE Normal [facility] PROCALCITONINon 01-08-2023 Procalcitonin 0.10 ng/mL Critically high 0.00-0.08 [facility] Comment on above: Result Comment: .A p [...] are obtained. Performed By: #### P CTLC ####[facility] Pqqbazdubp5250 [place] [address]DrWesley Navarro PROF 14(COMP METB)on 023 Albumin [Mass/Vol] 3.3 g/dL Critically low 3.4-5.0 [facility] Comment on above: Performed By: #### C MP ####[facility] Dnsvtnppmp3569 [place] [address]Dr. Emelina Navarro Albumin/Globulin [Mass ratio] 0.8 {ratio} Normal [facility] Comment on above: Performed By: #### C MP ####[facility] Rjfzytpbjk0437 [place] [address]Dr. Emelina Navarro ALP [Catalytic activity/Vol] 140 U/L Critically high 46-116 [facility] Comment on above: Performed By: #### C MP ####[facility] Tnzmhzlkbu7869 [place] [address]Dr. Emelina Navarro ALT [Catalytic activity/Vol] 22 U/L Normal 16-63 [facility] Comment on above: Performed By: #### C MP ####[facility] Fjxydhymto2[address] [place], [place] [address]Dr. Emelina Navarro Anion gap [Moles/Vol] 13.1 mmol/L Normal [facility] Comment on above: Performed By: #### C MP ####[facility] Chrbcuwizf[address] [place], [place] [address]Dr. Emelina Navarro AST [Catalytic activity/Vol] 21 U/L Normal 15-37 [facility] Comment on above: Performed By: #### C MP ####[facility] Yyhlxfotxu[address] [place], [place] [address]Dr. Emelina Navarro Bilirubin [Mass/Vol] 1.3 mg/dL Critically high 0.2-1.0 [facility] Comment on above: Performed By: #### C MP ####[facility] Amejjceokj06[address] [place], [place] [address]Dr. Emelina Navarro Calcium [Mass/Vol] 9.1 mg/dL Normal 8.5-10.1 [facility] Comment on above: Performed By: #### C MP ####[facility] Uyjylvhdlq3[address] [place], [place] [address]Dr. Emelina Navarro Chloride [Moles/Vol] 95 mmol/L Critically low 98-107 [facility] Comment on above: Performed By: #### C MP ####[facility] Qgbmtovizv1963 [place] [address]Dr. Emelina Navarro CO2 [Moles/Vol] 30.4 mmol/L Normal 21.0-32.0 [facility] Comment on above: Performed By: #### C MP ####[facility] Wulksyuxrz5399 [place] [address]Dr. Awildanitza Ramon Creatinine [Mass/Vol] 1.67 mg/dL Critically high 0.70-1.30 [facility] Comment on above: Performed By: #### C MP ####[facility] Vbkgdzjcqg2784 [place] [address]Dr. Emelina Navarro EGFR-AF GRENADIAN 50 mL/min/1.73m2 Critically low >=60 [facility] Comment on above: Performed By: #### C MP ####[facility] Fzvcmseoev[address] [place], [place] [address]Dr. Emelina Navarro EGFR-NON AF GRENADIAN 41 mL/min/1.73m2 Critically low >=60 [facility] Comment on above: Performed By: #### C MP ####[facility] Ywuamklgxa45[address] [place], [place] [address]Dr. Emelina Navarro Globulin (S) [Mass/Vol] 3.9 g/dL Normal [facility] Comment on above: Performed By: #### C MP ####[facility] Vxluqcgtpa5960[address] [place], [place] [address]Dr. Emelina Navarro Glucose [Mass/Vol] 198 mg/dL Critically high 74-106 T [facility] Comment on above: Performed By: #### C MP ####[facility] Pyxdakbpcq4220[address] [place], [place] [address]Dr. Emelina Navarro Potassium [Moles/Vol] 3.5 mmol/L Normal 3.5-5.1 [facility] Comment on above: Performed By: #### C MP ####[facility] Rscaiobtqb978[address] [place], [place] [address]Dr. Emelina Navarro Protein [Mass/Vol] 7.2 g/dL Normal 6.4-8.2 [facility] Comment on above: Performed By: #### C MP ####[facility] Kixboytwmd704[address] [place], [place] [address]Dr. Emelina Navarro Sodium [Moles/Vol] 135 mmol/L Critically low 136-145 [facility] Comment on above: Performed By: #### C MP ####[facility] Tdptrfgbus[address] [place], [place] [address]Dr. Emelina Navarro Urea nitrogen [Mass/Vol] 42.0 mg/dL Critically high 7.0-18.0 [facility] Comment on above: Performed By: #### C MP ####[facility] Ycgbnknlcv3034[address] [place], [place] [address]Dr. Emelina Navarro Urea nitrogen/Creatinine [Mass ratio] 25.1 mg/mg Normal [facility] Comment on above: Performed By: #### C MP ####[facility] Rxkvwbukld9911[address] [place], [place] [address]Dr. Emelina Navarro PROTIMEon 01-08-2023 INR Coag (PPP) [Relative time] 2.59 {INR} Normal [facility] Comment on above: Performed By: #### P T ####[facility] Vjvpcdtseq184[address] [place], [place] [address]Dr. Emelina Navarro INR GUIDELINES SEE BELOW Normal [facility] Comment on above: Result Comment: WENDY RED INR: 2.0 - 3.0 CONDITIONS NOT LISTED BELOW 2.5 - 3.5 FOR PROSTHETIC HEART VALVE REPLACEMENT 2.5 - 3.5 RECURRENT THROMBOSIS Performed By: #### P T ####[facility] Hgnsnipcvj04[address] [place], [place] [address]Dr. Emelina Navarro PT Coag (PPP) [Time] 26.0 s Critically high 9.0-11.6 [facility] Comment on above: Performed By: #### P T ####[facility] Ynbftduczi5[address] [place], [place] [address]Dr. Emelina Navarro CBC AUTO DIFFon 01-07-2023 BASO # 0.0 103/ul Normal 0.0-0.1 [facility] Comment on above: Performed By: #### C BC ####[facility] Rfpgaadies67[address] [place], [place] [address]Dr. Emelina Navarro Basophils/100 WBC (Bld) 0.3 % Normal 0.2-2.0 [facility] Comment on above: Performed By: #### C BC ####[facility] Ozuwapbfzc5113 [place] [address]Dr. Emelina Navarro EO # 0.3 103/ul Normal 0.0-0.7 [facility] Comment on above: Performed By: #### C BC ####[facility] Jyxzbbhcgr5075 [place] [address]DrWesley Emelina Navarro Eosinophils/100 WBC (Bld) 2.3 % Normal 0.9-7.0 [facility] Comment on above: Performed By: #### C BC ####[facility] Yvdipnvykz9586 [place] [address]Dr. Emelina Navarro Erythrocyte distribution width (RBC) [Ratio] 17.8 % Critically high 11.0-15.0 [facility] Comment on above: Performed By: #### C BC ####[facility] Xrkjytqynm78[address] [place], [place] [address]Dr. Emelina Navarro Hematocrit (Bld) [Volume fraction] 43.3 % Normal 42.0-54.0 [facility] Comment on above: Performed By: #### C BC ####[facility] Ihzutypmny[address] [place], [place] [address]Dr. Emelina Navarro Hemoglobin (Bld) [Mass/Vol] 13.6 g/dL Critically low 14.0-18.0 [facility] Comment on above: Performed By: #### C BC ####[facility] Hwdcdqdpoe3325[address] [place], [place] [address]Dr. Emelina Navarro IG # 0.05 10e3/ul Critically high 0.00-0.03 [facility] Comment on above: Performed By: #### C BC ####[facility] Gwujqzkywo0[address] [place], [place] [address]Dr. Emelina Navarro IG % 0.4 % Normal 0.0-0.5 [facility] Comment on above: Performed By: #### C BC ####[facility] Lnysdjeekc[address] [place], [place] [address]DrWesley Navarro LYMPH # 1.8 103/ul Normal 1.2-3.8 [facility] Comment on above: Performed By: #### C BC ####[facility] Homdmniovk3774 [place] [phone]. Awildanitza Navarro Lymphocytes/100 WBC (Bld) 12.8 % Critically low 20.5-60.0 [facility] Comment on above: Performed By: #### C BC ####[facility] Diroqnpcrx7870 [place] [address]Dr. Emelina Navarro MANUAL DIFF REQ NO Normal [facility] Comment on above: Performed By: #### C BC ####[facility] Owmbiyhokn2198 [place] [phone]. Emelina Navarro MCH (RBC) [Entitic mass] 28.4 pg Normal 25.9-34.0 [facility] Comment on above: Performed By: #### C BC ####[facility] Xniawopbbh9[address] [place], [place] [address]Dr. Emelina Navarro MCHC (RBC) [Mass/Vol] 31.4 g/dL Normal 29.9-35.2 [facility] Comment on above: Performed By: #### C BC ####[facility] Euhbjokqxn[address] [place], [place] [address]Dr. Emelina Navarro MCV (RBC) [Entitic vol] 90.4 fL Normal 80.0-94.0 [facility] Comment on above: Performed By: #### C BC ####[facility] Nkxrpzcqvy5632 [place] [address]Dr. Emelina Navarro MONO # 0.9 103/ul Critically high 0.3-0.8 [facility] Comment on above: Performed By: #### C BC ####[facility] Cgrmmeeoju9348 [place] [phone]. Emelina Navarro Monocytes/100 WBC (Bld) 6.8 % Normal 1.7-12.0 [facility] Comment on above: Performed By: #### C BC ####[facility] Ucrmtioacn2[address] [place], [place] [address]Dr. Emelina Navarro NEUT # 10.7 103/ul Critically high 1.4-6.5 [facility] Comment on above: Performed By: #### C BC ####[facility] Aznylimlrq7919 [place] [address]Dr. Emelina Navarro Neutrophils/100 WBC (Bld) 77.4 % Critically high 43.0-75.0 [facility] Comment on above: Performed By: #### C BC ####[facility] Vjeloknbgr7369 [place] [phone]. Emelina Navarro Platelet mean volume (Bld) [Entitic vol] 11.5 fL Normal 9.5-13.5 [facility] Comment on above: Performed By: #### C BC ####[facility] Vyuxvircod79[address] [place] [address]Dr. Emelina Navarro PLT 114 103/ul Critically low 150-450 [facility] Comment on above: Performed By: #### C BC ####[facility] Kpnzsvdeai5476 [place] [address]Dr. Emelina Navarro RBC 4.79 106/ul Normal 4.70-6.10 [facility] Comment on above: Performed By: #### C BC ####[facility] Wgjtkmcthr8075 [place] [address]DrWesley Navarro WBC 13.8 103/ul Critically high 4.0-11.0 [facility] Comment on above: Performed By: #### C BC ####[facility] Bmhnodmkkv3845 [place] [phone] Navarro PROF 14(COMP METB)on 023 Albumin [Mass/Vol] 3.4 g/dL Normal 3.4-5.0 [facility] Comment on above: Performed By: #### C MP ####[facility] Zszlodoqon0416 [place] [address]DrWesley Navarro Albumin/Globulin [Mass ratio] 0.9 {ratio} Normal [facility] Comment on above: Performed By: #### C MP ####[facility] Faegpgetjf2985 [place] [phone] Navarro ALP [Catalytic activity/Vol] 130 U/L Critically high 46-116 [facility] Comment on above: Performed By: #### C MP ####[facility] Tacibnlbkz5475 [place] [address]Dr. Emelina Navarro ALT [Catalytic activity/Vol] 24 U/L Normal 16-63 [facility] Comment on above: Performed By: #### C MP ####[facility] Iaenmaeqxv50[address] [place] [id number]. Emelina Navarro Anion gap [Moles/Vol] 12.2 mmol/L Normal [facility] Comment on above: Performed By: #### C MP ####[facility] Rvjsbnbzpt9003 [place] [phone]. Emelina Navarro AST [Catalytic activity/Vol] 22 U/L Normal 15-37 [facility] Comment on above: Performed By: #### C MP ####[facility] Zskxfkmizd6136 [place] [address]Dr. Emelina Ramon Bilirubin [Mass/Vol] 1.1 mg/dL Critically high 0.2-1.0 [facility] Comment on above: Performed By: #### C MP ####[facility] Uwqfqkgmfq0110 [place] [phone]. Emelina Ramon Calcium [Mass/Vol] 9.0 mg/dL Normal 8.5-10.1 [facility] Comment on above: Performed By: #### C MP ####[facility] Fugdzfqeip59[address] [place] [address]Dr. Emelina Navarro Chloride [Moles/Vol] 99 mmol/L Normal 98-107 [facility] Comment on above: Performed By: #### C MP ####[facility] Tftfhyowzm4960 [place] [phone]. Emelina Navarro CO2 [Moles/Vol] 30.5 mmol/L Normal 21.0-32.[address] [facility] Comment on above: Performed By: #### C MP ####[facility] Vkdeasjbie2288 [place] [phone]. Emelina Ramon Creatinine [Mass/Vol] 1.58 mg/dL Critically high 0.70-1.30 [facility] Comment on above: Performed By: #### C MP ####[facility] Vlmukmacrk2449 [place] [phone]. Emelina Navarro EGFR-AF GRENADIAN 53 mL/min/1.73m2 Critically low >=60 [facility] Comment on above: Performed By: #### C MP ####[facility] Povnqkzebs8257 [place] [phone]. Emelina Ramon EGFR-NON AF GRENADIAN 44 mL/min/1.73m2 Critically low >=60 [facility] Comment on above: Performed By: #### C MP ####[facility] Ucadpdyxvi8443 [place] [address]Dr. Emelina Ramon Globulin (S) [Mass/Vol] 3.9 g/dL Normal [facility] Comment on above: Performed By: #### C MP ####[facility] Ixmhbfykhw5394 [place] [address]Dr. Emelina Ramon Glucose [Mass/Vol] 195 mg/dL Critically high 74-106 [facility] Comment on above: Performed By: #### C MP ####[facility] Ludprtvgrn1076 [place] [address]Dr. Emelina Ramon Potassium [Moles/Vol] 3.7 mmol/L Normal 3.5-5.1 [facility] Comment on above: Performed By: #### C MP ####[facility] Emfxyrripd6820 [place] [address]Dr. Emelina Ramon Protein [Mass/Vol] 7.3 g/dL Normal 6.4-8.2 [facility] Comment on above: Performed By: #### C MP ####[facility] Qfhqfdvsct4701 [place] [address]Dr. Emelina Navarro Sodium [Moles/Vol] 138 mmol/L Normal 136-145 [facility] Comment on above: Performed By: #### C MP ####[facility] Flpnaoowif6766 [place] [phone]. Emelina Ramon Urea nitrogen [Mass/Vol] 36.0 mg/dL Critically high 7.0-18.0 [facility] Comment on above: Performed By: #### C MP ####[facility] Ayegauxwaw[address] [place], [place] [address]Dr. Emelina Navarro Urea nitrogen/Creatinine [Mass ratio] 22.8 mg/mg Normal [facility] Comment on above: Performed By: #### C MP ####[facility] Fjgtpfczlb837[address] [place], [place] [address]Dr. Emelina Navarro CBC AUTO DIFFon 01-06-2023 BASO # 0.0 103/ul Normal 0.0-0.1 [facility] Comment on above: Performed By: #### C BC ####[facility] Jkwthorhss4[address] [place], [place] [address]Dr. Emelina Navarro Basophils/100 WBC (Bld) 0.3 % Normal 0.2-2.0 [facility] Comment on above: Performed By: #### C BC ####[facility] Bxipnyzxef7[address] [place], [place] [address]DrWesley Navarro EO # 0.3 103/ul Normal 0.0-0.7 [facility] Comment on above: Performed By: #### C BC ####[facility] Vcvcjzbaza786[address] [place], [place] [address]DrWesley Navarro Eosinophils/100 WBC (Bld) 2.2 % Normal 0.9-7.0 [facility] Comment on above: Performed By: #### C BC ####[facility] Iichjpogtn225347 [address] [place], [place] [address]Dr. Emelina Navarro Erythrocyte distribution width (RBC) [Ratio] 17.9 % Critically high 11.0-15.0 [facility] Comment on above: Performed By: #### C BC ####[facility] Dzvqonwjrt248[address] [place], [place] [address]DrWesley Navarro Hematocrit (Bld) [Volume fraction] 40.9 % Critically low 42.0-54.0 [facility] Comment on above: Performed By: #### C BC ####[facility] Taqmqbjeta458647 [address] [place], [place] [address]Dr. Emelina Navarro Hemoglobin (Bld) [Mass/Vol] 12.9 g/dL Critically low 14.0-18.0 [facility] Comment on above: Performed By: #### C BC ####[facility] Fxbesqeamm7673 [place] [phone] Navarro IG # 0.04 10e3/ul Critically high 0.00-0.03 [facility] Comment on above: Performed By: #### C BC ####[facility] Eocspwcxfd7735 [place] [address]DrWesley Navarro IG % 0.3 % Normal 0.0-0.5 [facility] Comment on above: Performed By: #### C BC ####[facility] Penhsluotz50[address] [place], [place] [address]DrWesley Navarro LYMPH # 2.2 103/ul Normal 1.2-3.8 [facility] Comment on above: Performed By: #### C BC ####[facility] Nlixvondrv9823[address] [place], [place] [address]DrWesley Navarro Lymphocytes/100 WBC (Bld) 17.3 % Critically low 20.5-60.0 [facility] Comment on above: Performed By: #### C BC ####[facility] Izqcjwxmut199[address] [place], [place] [address]DrWesley Navarro MANUAL DIFF REQ NO Normal [facility] Comment on above: Performed By: #### C BC ####[facility] Ulfucpnhjp7482 [place] [address]DrWesley Navarro MCH (RBC) [Entitic mass] 28.5 pg Normal 25.9-34.0 [facility] Comment on above: Performed By: #### C BC ####[facility] Vafvmdnffn[address] [place], [place] [address]DrWesley Navarro MCHC (RBC) [Mass/Vol] 31.5 g/dL Normal 29.9-35.2 [facility] Comment on above: Performed By: #### C BC ####[facility] Wygeggciwj150347 [address] [place], [place] [address]DrWesley Navarro MCV (RBC) [Entitic vol] 90.3 fL Normal 80.0-94.0 [facility] Comment on above: Performed By: #### C BC ####[facility] Qxdkfwkfmp9[address] [place], [place] [address]DrWesley Emelina Navarro MONO # 0.9 103/ul Critically high 0.3-0.8 [facility] Comment on above: Performed By: #### C BC ####[facility] Hpggkfgnep3880[address] [place], [place] [address]DrWesley Emelina Ramon Monocytes/100 WBC (Bld) 7.5 % Normal 1.7-12.0 [facility] Comment on above: Performed By: #### C BC ####[facility] Yhhlkyhhug849347 [address] [place], [place] [address]DrWesley Emelina Navarro NEUT # 9.1 103/ul Critically high 1.4-6.5 [facility] Comment on above: Performed By: #### C BC ####[facility] Epivfamjuv373547 [address] [place], [place] [address]Dr. Emelina Ramon Neutrophils/100 WBC (Bld) 72.4 % Normal 43.0-75.0 [facility] Comment on above: Performed By: #### C BC ####[facility] Qckmvqqzyz445[address] [place], [place] [address]Dr. Emelina Ramon Platelet mean volume (Bld) [Entitic vol] 11.3 fL Normal 9.5-13.5 [facility] Comment on above: Performed By: #### C BC ####[facility] Frkkdxylhv755547 [address] [place], [place] [address]Dr. Emelina Ramon PLT 119 103/ul Critically low 150-450 [facility] Comment on above: Performed By: #### C BC ####[facility] Lporjtyhca7828[address] [place], [place] [address]DrWesley Navarro RBC 4.53 106/ul Critically low 4.70-6.10 [facility] Comment on above: Performed By: #### C BC ####[facility] Icjswolhox4169[address] [place], [place] [address]Dr. Emelina Navarro WBC 12.6 103/ul Critically high 4.0-11.0 [facility] Comment on above: Performed By: #### C BC ####[facility] Fwwhllbquv359[address] [place], [place] [address]DrWesley Navarro PROF 14(COMP METB)on 023 Albumin [Mass/Vol] 3.1 g/dL Critically low 3.4-5.0 [facility] Comment on above: Performed By: #### C MP ####[facility] Sfroryuewg239347 [address] [place], [place] [address]DrWesley Navarro Albumin/Globulin [Mass ratio] 1.0 {ratio} Normal [facility] Comment on above: Performed By: #### C MP ####[facility] Dcmounnmmh3577[address] [place], [place] [address]Dr. Emelina Navarro ALP [Catalytic activity/Vol] 114 U/L Normal 46-116 [facility] Comment on above: Performed By: #### C MP ####[facility] Mtgqbyssql414[address] [place], [place] [address]Dr. Emelina Navarro ALT [Catalytic activity/Vol] 23 U/L Normal 16-63 [facility] Comment on above: Performed By: #### C MP ####[facility] Hmzwgbjkgd302[address] [place], [place] [address]DrWesley Navarro Anion gap [Moles/Vol] 13.5 mmol/L Normal [facility] Comment on above: Performed By: #### C MP ####[facility] Vzhpqtrpct4359[address] [place], [place] [address]Dr. Emelina Navarro AST [Catalytic activity/Vol] 24 U/L Normal 15-37 [facility] Comment on above: Performed By: #### C MP ####[facility] Uerazxeouc04[address] [place], [place] [address]DrWesley Navarro Bilirubin [Mass/Vol] 1.0 mg/dL Normal 0.2-1.0 [facility] Comment on above: Performed By: #### C MP ####[facility] Qbvzppvrrh409[address] [place], [place] [address]DrWesley Navarro Calcium [Mass/Vol] 8.5 mg/dL Normal 8.5-10.1 [facility] Comment on above: Performed By: #### C MP ####[facility] Zeerbbrhxn9580[address] [place], [place] [address]Dr. Emelina Navarro Chloride [Moles/Vol] 102 mmol/L Normal 98-107 [facility] Comment on above: Performed By: #### C MP ####[facility] Vjzucwgseb332[address] [place], [place] [address]Dr. Awildanitza Ramon CO2 [Moles/Vol] 28.2 mmol/L Normal 21.0-32.0 [facility] Comment on above: Performed By: #### C MP ####[facility] Pgzadnsccf5839[address] [place], [place] [address]Dr. Emelina Navarro Creatinine [Mass/Vol] 1.42 mg/dL Critically high 0.70-1.30 [facility] Comment on above: Performed By: #### C MP ####[facility] Uezcitbqig360[address] [place], [place] [address]Dr. Emelina Navarro EGFR-AF GRENADIAN 60 mL/min/1.73m2 Normal >=60 [facility] Comment on above: Performed By: #### C MP ####[facility] Dxaibgioll1407[address] [place], [place] [address]Dr. Emelina Navarro EGFR-NON AF GRENADIAN 50 mL/min/1.73m2 Critically low >=60 [facility] Comment on above: Performed By: #### C MP ####[facility] Egvutolmut962047 [address] [place], [place] [address]Dr. Emelina Navarro Globulin (S) [Mass/Vol] 3.1 g/dL Normal [facility] Comment on above: Performed By: #### C MP ####[facility] Xghatubmee385[address] [place], [place] [address]Dr. Emelina Navarro Glucose [Mass/Vol] 121 mg/dL Critically high 74-106 [facility] Comment on above: Performed By: #### C MP ####[facility] Ksowlsvzar935[address] [place], [place] [address]Dr. Emelina Navarro Potassium [Moles/Vol] 3.7 mmol/L Normal 3.5-5.1 [facility] Comment on above: Performed By: #### C MP ####[facility] Sxwgforgbx3108[address] [place], [place] [address]Dr. Emelina Navarro Protein [Mass/Vol] 6.2 g/dL Critically low 6.4-8.2 [facility] Comment on above: Performed By: #### C MP ####[facility] Kfigbbityr027347 [address] [place], [place] [address]Dr. Emelina Navarro Sodium [Moles/Vol] 140 mmol/L Normal 136-145 [facility] Comment on above: Performed By: #### C MP ####[facility] Wsdqwfudeg45[address] [place], [place] [address]Dr. Emelina Navarro Urea nitrogen [Mass/Vol] 33.0 mg/dL Critically high 7.0-18.0 [facility] Comment on above: Performed By: #### C MP ####[facility] Ihagwfzfue1560[address] [place], [place] [address]Dr. Emelina Navarro Urea nitrogen/Creatinine [Mass ratio] 23.2 mg/mg Normal [facility] Comment on above: Performed By: #### C MP ####[facility] Zewrcxauvt0108[address] [place], [place] [address]Dr. Emelina Navarro BNPon 01-05-2023 Natriuretic peptide B (Bld) [Mass/Vol] 7350.0 pg/mL Critically high <=900.0 [facility] Comment on above: Performed By: #### B BLOOD BANK ASSISTANT, BMP, HSTROPN ####[facility] Thtlfpmknx240[address] [place], [place] [address]Dr. Emelina Navarro CBC AUTO DIFFon 01-05-2023 BASO # 0.0 103/ul Normal 0.0-0.1 [facility] Comment on above: Performed By: #### C BC ####[facility] Izpmcatxnd0095[address] [place], [place] [address]Dr. Emelina Navarro Basophils/100 WBC (Bld) 0.3 % Normal 0.2-2.0 [facility] Comment on above: Performed By: #### C BC ####[facility] Dpuwrdyibw3499 [place] [phone]. Emelina Navarro EO # 0.3 103/ul Normal 0.0-0.7 [facility] Comment on above: Performed By: #### C BC ####[facility] Xejmiwhnsu7740 [place] [phone]. Emelina Navarro Eosinophils/100 WBC (Bld) 1.9 % Normal 0.9-7.0 [facility] Comment on above: Performed By: #### C BC ####[facility] Pufxejsqmz106[address] [place], [place] [address]Dr. Emelina Navarro Erythrocyte distribution width (RBC) [Ratio] 17.7 % Critically high 11.0-15.0 [facility] Comment on above: Performed By: #### C BC ####[facility] Djzqeibawp615[address] [place], [place] [address]Dr. Emelina Navarro Hematocrit (Bld) [Volume fraction] 42.9 % Normal 42.0-54.0 [facility] Comment on above: Performed By: #### C BC ####[facility] Jwvfctaaaa3623[address] [place], [place] [address]Dr. Emelina Navarro Hemoglobin (Bld) [Mass/Vol] 13.8 g/dL Critically low 14.0-18.0 [facility] Comment on above: Performed By: #### C BC ####[facility] Fnczywyasm022[address] [place], [place] [address]Dr. Emelina Navarro IG # 0.07 10e3/ul Critically high 0.00-0.03 [facility] Comment on above: Performed By: #### C BC ####[facility] Uwjnhfxfws99034[address] [place], [place] [address]Dr. Emelina Navarro IG % 0.4 % Normal 0.0-0.5 [facility] Comment on above: Performed By: #### C BC ####[facility] Pogitlirgv086[address] [place], [place] [address]Dr. Emelina Navarro LYMPH # 1.8 103/ul Normal 1.2-3.8 [facility] Comment on above: Performed By: #### C BC ####[facility] Tlofektwci5019 [place] [phone]. Emelina Ramon Lymphocytes/100 WBC (Bld) 11.6 % Critically low 20.5-60.0 [facility] Comment on above: Performed By: #### C BC ####[facility] Kdmlirlsfn7915 [place] [phone]. Emelina Navarro MANUAL DIFF REQ NO Normal [facility] Comment on above: Performed By: #### C BC ####[facility] Awmrikrpko5220 [place] [phone]. Emelina Navarro MCH (RBC) [Entitic mass] 28.5 pg Normal 25.9-34.0 [facility] Comment on above: Performed By: #### C BC ####[facility] Krzsxodgnd995[address] [place], [place] [address]Dr. Emelina Navarro MCHC (RBC) [Mass/Vol] 32.2 g/dL Normal 29.9-35.2 [facility] Comment on above: Performed By: #### C BC ####[facility] Nolruzhfgl7[address] [place], [place] [phone]. Emelina Navarro MCV (RBC) [Entitic vol] 88.5 fL Normal 80.0-94.0 [facility] Comment on above: Performed By: #### C BC ####[facility] Sxiqezoned2[address] [place], [place] [address]Dr. Emelina Navarro MONO # 1.1 103/ul Critically high 0.3-0.8 [facility] Comment on above: Performed By: #### C BC ####[facility] Hdrvriqgvn5[address] [place], [place] [address]Dr. Emelina Navarro Monocytes/100 WBC (Bld) 6.9 % Normal 1.7-12.0 [facility] Comment on above: Performed By: #### C BC ####[facility] Fhruplemaw8348[address] [place], [place] [address]Dr. Emelina Navarro NEUT # 12.4 103/ul Critically high 1.4-6.[address] [facility] Comment on above: Performed By: #### C BC ####[facility] Uekssywecr4050 [place] [phone]. Emelina Navarro Neutrophils/100 WBC (Bld) 78.9 % Critically high 43.0-75.0 [facility] Comment on above: Performed By: #### C BC ####[facility] Ihwpwgurst8652 [place] [phone]. Emelina Navarro Platelet mean volume (Bld) [Entitic vol] 11.5 fL Normal 9.5-13.5 [facility] Comment on above: Performed By: #### C BC ####[facility] Qatdceuwis2614 [place] [phone]. Emelina Navarro PLT 142 103/ul Critically low 150-450 [facility] Comment on above: Performed By: #### C BC ####[facility] Ujluuaakft1843 [place] [phone]. Emelina Navarro RBC 4.85 106/ul Normal 4.70-6.10 [facility] Comment on above: Performed By: #### C BC ####[facility] Mixqghlsur3071 [place] [phone]. Emelina Navarro WBC 15.8 103/ul Critically high 4.0-11.0 [facility] Comment on above: Performed By: #### C BC ####[facility] Wectfkzvfr6433 [place] [phone]. Emelina Navarro CULTURE BLOODon 01-05-2023 Microscopic examination of blood, culture Culture Observations: NO GROWTH AT 5 DAYS. Normal [facility] Comment on above: Performed By: #### B LDCX2 ####[facility] Hvldssznhs0015 [place] [phone]. Emelina Navarro Microscopic examination of blood, culture Culture Observations: NO GROWTH AT 5 DAYS. Normal [facility] Comment on above: Performed By: #### B LDCX1 ####[facility] Iqybwjuuri8743 [place] [phone]. Emelina Ramon [facility]20 SARS-CoV-2 (COVID-19) RNA RADHA+probe Ql (Unsp spec) Not detected Normal NOT DETECTED [facility] Comment on above: Result Comment: When [...] for this test is supported by the [place] of Health and Human Service's declaration that [...] be used). Performed By: #### C VDTBH ####[facility] Bzvyonydyu8[address] [place] [address]Dr. Emelina Navarro DIGOXINon 01-05-2023 DIG 0.8 ng/mL Critically low 0.9-2.0 [facility] Comment on above: Performed By: #### D IG ####[facility] Ugaooqvqiw14[address] [place], [place] [address]Dr. Emelina Navarro PROF CHEM 8 (BAS METB)on Anion gap [Moles/Vol] 12.7 mmol/L Normal [facility] Comment on above: Performed By: #### B BLOOD BANK ASSISTANT, BMP, HSTROPN ####[facility] Hhgmlhvrit9931 [place] [address]DrWesley Navarro Calcium [Mass/Vol] 8.8 mg/dL Normal 8.5-10.1 [facility] Comment on above: Performed By: #### B BLOOD BANK ASSISTANT, BMP, HSTROPN ####[facility] Omcsuezfgz1873 [place] [address]DrWesley Navarro Chloride [Moles/Vol] 99 mmol/L Normal 98-107 [facility] Comment on above: Performed By: #### B BLOOD BANK ASSISTANT, BMP, HSTROPN ####[facility] Pvzxruwgum9674 [place] [address]Dr. Emelina Navarro CO2 [Moles/Vol] 28.2 mmol/L Normal 21.0-32.0 [facility] Comment on above: Performed By: #### B BLOOD BANK ASSISTANT, BMP, HSTROPN ####[facility] Uuadmjmmlx195[address] [place], [place] [address]Dr. Emelina Navarro Creatinine [Mass/Vol] 1.64 mg/dL Critically high 0.70-1.30 [facility] Comment on above: Performed By: #### B BLOOD BANK ASSISTANT, BMP, HSTROPN ####[facility] Cxznvubcty512[address] [place], [place] [address]Dr. Emelina Navarro EGFR-AF GRENADIAN 51 mL/min/1.73m2 Critically low >=60 [facility] Comment on above: Performed By: #### B BLOOD BANK ASSISTANT, BMP, HSTROPN ####[facility] Qoonjsqixu374[address] [place], [place] [address]Dr. Emelina Navarro EGFR-NON AF GRENADIAN 42 mL/min/1.73m2 Critically low >=60 [facility] Comment on above: Performed By: #### B BLOOD BANK ASSISTANT, BMP, HSTROPN ####[facility] Ojxyvvkevg1618[address] [place], [place] [address]Dr. Emelina Navarro Glucose [Mass/Vol] 203 mg/dL Critically high 74-106 [facility] Comment on above: Performed By: #### B BLOOD BANK ASSISTANT, BMP, HSTROPN ####[facility] Gobtkrjdnt906[address] [place], [place] [address]Dr. Emelina Navarro Potassium [Moles/Vol] 3.9 mmol/L Normal 3.5-5.1 [facility] Comment on above: Performed By: #### B BLOOD BANK ASSISTANT, BMP, HSTROPN ####[facility] Nhzqhodmwu495[address] [place] [address]Dr. Emelina Navarro Sodium [Moles/Vol] 136 mmol/L Normal 136-145 [facility] Comment on above: Performed By: #### B BLOOD BANK ASSISTANT, BMP, HSTROPN ####[facility] Ugligwdtzb49[address] [place] [address]Dr. Emelina Navarro Urea nitrogen [Mass/Vol] 32.0 mg/dL Critically high 7.0-18.0 [facility] Comment on above: Performed By: #### B BLOOD BANK ASSISTANT, BMP, HSTROPN ####[facility] Auxvfwxmdj4716[address] [place], [place] [address]Dr. Emelina Navarro Urea nitrogen/Creatinine [Mass ratio] 19.5 mg/mg Normal [facility] Comment on above: Performed By: #### B BLOOD BANK ASSISTANT, BMP, HSTROPN ####[facility] Bpauhqypip897[address] [place], [place] [address]Dr. Emelina Navarro PROTIMEon 01-05-2023 INR Coag (PPP) [Relative time] 2.53 {INR} Normal [facility] Comment on above: Performed By: #### P T, PTT ####[facility] Uwakvjakne12[address] [place], [place] [address]Dr. Emelina Navarro INR GUIDELINES SEE BELOW Normal [facility] Comment on above: Result Comment: WENDY RED INR: 2.0 - 3.0 CONDITIONS NOT LISTED BELOW 2.5 - 3.5 FOR PROSTHETIC HEART VALVE REPLACEMENT 2.5 - 3.5 RECURRENT THROMBOSIS Performed By: #### P T, PTT ####[facility] Jaexefqiag0099[address] [place], [place] [address]Dr. Emelina Navarro PT Coag (PPP) [Time] 25.4 s Critically high 9.0-11.6 [facility] Comment on above: Performed By: #### P T, PTT ####[facility] Rgqiyfdgjx[address] [place], [place] [address]Dr. Emelina Navarro PTTon 01-05-2023 aPTT Coag (Bld) [Time] 37.7 s Critically high 22.3-36.2 [facility] Comment on above: Performed By: #### P T, PTT ####[facility] Hsvwrsthjd738[address] [place], [place] [address]Dr. Emelina Navarro TROPONIN, HIGH SENSITIVITYon 01-05-2023 HSTROP 52.4 pg/mL Normal 4.0-76.1 [facility] Comment on above: Result Comment: CUT- OFF POINTS HAVE BEEN ESTABLISHED BASED ON THE FOURTH UNIVERSAL DEFINITIONS OF MYOCARDIALINFARCTION. THE UPPER REFERENCE LIMIT (URL) OF TROPONIN, DEFINED THE 99TH PERCENTILE OFcTnI DISTRIBUTION IN A REFERENCE POPULATION, HAS BEEN CONFIRMED THE DECISION THRESHOLDFOR ND DIAGNOSIS. Performed By: #### B BLOOD BANK ASSISTANT, BMP, HSTROPN ####[facility] Efcrruhgjy6[address] [place], [place] [address]Dr. Emelina Navarro XR CHEST 1 Von 01-05-2023 XR CHEST 1 V Normal [facility] BNPon 01-02-2023 Natriuretic peptide B (Bld) [Mass/Vol] 5653.0 pg/mL Critically high <=900.0 [facility] Comment on above: Performed By: #### B BLOOD BANK ASSISTANT, BMP ####[facility] Qbmluryezk[address] [place], [place] [address]Dr. Emelina Ramon CBC AUTO DIFFon 01-02-2023 BASO # 0.0 103/ul Normal 0.0-0.1 [facility] Comment on above: Performed By: #### C BC ####[facility] [facility] [address] [place], [place] [address]Dr. Awildanitza Navarro Basophils/100 WBC (Bld) 0.2 % Normal 0.2-2.0 [facility] Comment on above: Performed By: #### C BC ####[facility] Ycfedhfgyk[address] [place], [place] [address]Dr. Emelina Ramon EO # 0.3 103/ul Normal 0.0-0.7 [facility] Comment on above: Performed By: #### C BC ####[facility] Aiirpqfraq[address] [place], [place] [address]Dr. Awildanitza Navarro Eosinophils/100 WBC (Bld) 2.1 % Normal 0.9-7.0 [facility] Comment on above: Performed By: #### C BC ####[facility] Fawguzziot[address] [place], [place] [address]Dr. Emelina Navarro Erythrocyte distribution width (RBC) [Ratio] 17.9 % Critically high 11.0-15.0 [facility] Comment on above: Performed By: #### C BC ####[facility] [address] [place] [address]DrWesley Navarro Hematocrit (Bld) [Volume fraction] 42.1 % Normal 42.0-54.0 [facility] Comment on above: Performed By: #### C BC ####[facility] [address] [place] [address]DrWesley Navarro Hemoglobin (Bld) [Mass/Vol] 13.8 g/dL Critically low 14.0-18.0 [facility] Comment on above: Performed By: #### C BC ####[facility] Al[address]xnv[address] [place], [place] [address]DrWesley Navarro IG # 0.06 10e3/ul Critically high 0.00-0.03 [facility] Comment on above: Performed By: #### C BC ####[facility] Mdrihtdbkk[address] [place], [place] [address]DrWesley Navarro IG % 0.5 % Normal 0.0-0.5 [facility] Comment on above: Performed By: #### C BC ####[facility] Y[address]cwfj[address] [place], [place] [address]DrWesley Navarro LYMPH # 1.7 103/ul Normal 1.2-3.8 [facility] Comment on above: Performed By: #### C BC ####[facility] N[address]igxzkn[address] [place], [place] [address]DrWesley Navarro Lymphocytes/100 WBC (Bld) 13.1 % Critically low 20.5-60.0 [facility] Comment on above: Performed By: #### C BC ####[facility] Rsyhjdpenv20[address] [place], [place] [address]DrWesley Navarro MANUAL DIFF REQ NO [facility] Comment on above: Performed By: #### C BC ####[facility] [address]wjeeow[address] [place] [address]DrWesley Navarro MCH (RBC) [Entitic mass] 28.9 pg Normal 25.9-34.0 [facility] Comment on above: Performed By: #### C BC ####[facility] [address]irapj[address] [place] [address]DrWesley Navarro MCHC (RBC) [Mass/Vol] 32.8 g/dL Normal 29.9-35.2 [facility] Comment on above: Performed By: #### C BC ####[facility] [address]seexowkh[address] [place] [address]DrWesley Navarro MCV (RBC) [Entitic vol] 88.3 fL Normal 80.0-94.0 [facility] Comment on above: Performed By: #### C BC ####[facility] Wqrynedraf7[address] [place], [place] [address]DrWesley Navarro MONO # 0.7 103/ul Normal 0.3-0.8 [facility] Comment on above: Performed By: #### C BC ####[facility] W[address]onaqyrwt[address] [place], [place] [address]DrWesley Navarro Monocytes/100 WBC (Bld) 5.3 % Normal 1.7-12.0 [facility] Comment on above: Performed By: #### C BC ####[facility] Jotqepvsqy[address] [place], [place] [address]DrWesley Navarro NEUT # 10.1 103/ul Critically high 1.4-6.[address] [facility] Comment on above: Performed By: #### C BC ####[facility] Sptteateis[address] [place], [place] [address]DrWesley Navarro Neutrophils/100 WBC (Bld) 78.8 % Critically high 43.0-75.0 [facility] Comment on above: Performed By: #### C BC ####[facility] F[address]lysgfvk[address] [place], [place] [address]DrWesley Navarro Platelet mean volume (Bld) [Entitic vol] 10.8 fL Normal 9.5-13.5 [facility] Comment on above: Performed By: #### C BC ####[facility] Spjmizggbz[address] [place], [place] [address]Dr. Emelina Navaror PLT 143 103/ul Critically low 150-450 [facility] Comment on above: Performed By: #### C BC ####[facility] [address]nqi[address] [place] [address]Dr. Emelina Navarro RBC 4.77 106/ul Normal 4.70-6.10 [facility] Comment on above: Performed By: #### C BC ####[facility] [address]bighi[address] [place] [address]Dr. Emelina Ramon WBC 12.8 103/ul Critically high 4.0-11.0 [facility] Comment on above: Performed By: #### C BC ####[facility] Qmreqyiwrc24[address] [place], [place] [address]Dr. Awildanitza Navarro PROF CHEM 8 (BAS METB)on Anion gap [Moles/Vol] 12.2 mmol/L Normal [facility] Comment on above: Performed By: #### B BLOOD BANK ASSISTANT, BMP ####[facility] Qfoxywxxzg[address] [place], [place] [address]Dr. Emelina Navarro Calcium [Mass/Vol] 8.6 mg/dL Normal 8.5-10.1 [facility] Comment on above: Performed By: #### B BLOOD BANK ASSISTANT, BMP ####[facility] Zlslsnloej[address] [place], [place] [address]Dr. Emelina Navarro Chloride [Moles/Vol] 102 mmol/L Normal 98-107 [facility] Comment on above: Performed By: #### B BLOOD BANK ASSISTANT, BMP ####[facility] Luhhujkjfk[address] [place], [place] [address]Dr. Emelina Navarro CO2 [Moles/Vol] 26.4 mmol/L Normal 21.0-32.[address] [facility] Comment on above: Performed By: #### B BLOOD BANK ASSISTANT, BMP ####[facility] Xokfrcvtji84[address] [place], [place] [address]Dr. Emelina Navarro Creatinine [Mass/Vol] 1.56 mg/dL Critically high 0.70-1.30 [facility] Comment on above: Performed By: #### B BLOOD BANK ASSISTANT, BMP ####[facility] [address]ys[address] [place] [id number]. Emelina Navarro EGFR-AF GRENADIAN 54 mL/min/1.73m2 Critically low >=60 [facility] Comment on above: Performed By: #### B BLOOD BANK ASSISTANT, BMP ####[facility] Ttbcimrtiq[address] [place], [place] [id number]. Emelina Navarro EGFR-NON AF GRENADIAN 44 mL/min/1.73m2 Critically low >=60 [facility] Comment on above: Performed By: #### B BLOOD BANK ASSISTANT, BMP ####[facility] F[address]jwffypj[address] [place], [place] [id number]. Emelina Navarro Glucose [Mass/Vol] 211 mg/dL Critically high 74-106 [facility] Comment on above: Performed By: #### B BLOOD BANK ASSISTANT, BMP ####[facility] Uyirfohpzb99[address] [place], [place] [address]Dr. Emelina Navarro Potassium [Moles/Vol] 3.6 mmol/L Normal 3.5-5.1 [facility] Comment on above: Performed By: #### B BLOOD BANK ASSISTANT, BMP ####[facility] Lxzsbidxiq[address] [place], [place] [address]Dr. Emelina Navarro Sodium [Moles/Vol] 137 mmol/L Normal 136-145 [facility] Comment on above: Performed By: #### B BLOOD BANK ASSISTANT, BMP ####[facility] Pniditqdcd[address] [place], [place] [id number]. Emelina Navarro Urea nitrogen [Mass/Vol] 42.0 mg/dL Critically high 7.0-18.0 [facility] Comment on above: Performed By: #### B BLOOD BANK ASSISTANT, BMP ####[facility] [address]ad[address] [place] [id number]. Emelina Navarro Urea nitrogen/Creatinine [Mass ratio] 26.9 mg/mg Normal [facility] Comment on above: Performed By: #### B BLOOD BANK ASSISTANT, BMP ####[facility] Jyvshtksie[address] [place], [place] [address]Dr. Emelina Navarro Anion gap [Moles/Vol] 12.3 mmol/L Normal [facility] Comment on above: Performed By: #### B MP ####[facility] [address] [place] [phone]. Emelina Navarro Calcium [Mass/Vol] 8.4 mg/dL Critically low 8.5-10.1 [facility] Comment on above: Performed By: #### B MP ####[facility] [address]ailmimv32[address] [place] [phone]. Emelina Navarro Chloride [Moles/Vol] 101 mmol/L Normal 98-107 [facility] Comment on above: Performed By: #### B MP ####[facility] V[address]xmw80[address] [place] [phone]. Emelina Navarro CO2 [Moles/Vol] 27.4 mmol/L Normal 21.0-32.[address] [facility] Comment on above: Performed By: #### B MP ####[facility] Gtyauvmrha[address] [place], [place] [address]Dr. Emelina Navarro Creatinine [Mass/Vol] 1.54 mg/dL Critically high 0.70-1.30 [facility] Comment on above: Performed By: #### B MP ####[facility] [address]wrang[address] [place] [id number]. Emelina Navarro EGFR-AF GRENADIAN 55 mL/min/1.73m2 Critically low >=60 [facility] Comment on above: Performed By: #### B MP ####[facility] R[address]scsvffn[address] [place] [phone]. Emelina Navarro EGFR-NON AF GRENADIAN 45 mL/min/1.73m2 Critically low >=60 [facility] Comment on above: Performed By: #### B MP ####[facility] Qrlaarraii6[address] [place] [id number]. Emelina Navarro Glucose [Mass/Vol] 115 mg/dL Critically high 74-106 [facility] Comment on above: Performed By: #### B MP ####[facility] [address]bwu[address] [place] [address]Dr. Emelina Navarro Potassium [Moles/Vol] 3.7 mmol/L Normal 3.5-5.1 [facility] Comment on above: Performed By: #### B MP ####[facility] [address] [place] [address]Dr. Emelina Navarro Sodium [Moles/Vol] 137 mmol/L Normal 136-145 [facility] Comment on above: Performed By: #### B MP ####[facility] S[address]ft[address]ygjj[address] [place] [address]Dr. Emelina Navarro Urea nitrogen [Mass/Vol] 40.0 mg/dL Critically high 7.0-18.0 [facility] Comment on above: Performed By: #### B MP ####[facility] [address]rnzrtki[address] [place], [place] [address]Dr. Emelina Navarro Urea nitrogen/Creatinine [Mass ratio] 26.0 mg/mg Normal [facility] Comment on above: Performed By: #### B MP ####[facility] V[address]rvwfhue[address] [place], [place] [address]Dr. Emelina Navarro XR CHEST 1 Von 01-02-2023 XR CHEST 1 V Normal [facility] BNPon 12-26-2022 Natriuretic peptide B (Bld) [Mass/Vol] 9102.0 pg/mL Critically high <=900.0 [facility] Comment on above: Performed By: #### B BLOOD BANK ASSISTANT ####[facility] [address]mt[address]qch[address] [place], [place] [address]Dr. Emelina Navarro PROF CHEM 8 (BAS METB)on Anion gap [Moles/Vol] 14.4 mmol/L Normal [facility] Comment on above: Performed By: #### B MP ####[facility] Nakqusayvp[address] [place], [place] [address]Dr. Emelina Navarro Calcium [Mass/Vol] 8.6 mg/dL Normal 8.5-10.1 [facility] Comment on above: Performed By: #### B MP ####[facility] [address]fe[address]fbjz[address] [place], [place] [address]Dr. Emelina Navarro Chloride [Moles/Vol] 101 mmol/L Normal 98-107 [facility] Comment on above: Performed By: #### B MP ####[facility] Rbod[address]yypfd[address] [place], [place] [address]Dr. Emelina Navarro CO2 [Moles/Vol] 27.2 mmol/L Normal 21.0-32.[address] [facility] Comment on above: Performed By: #### B MP ####[facility] [address] [place] [address]Dr. Emelina Navarro Creatinine [Mass/Vol] 1.69 mg/dL Critically high 0.70-1.30 [facility] Comment on above: Performed By: #### B MP ####[facility] [address]xtx[address]roc[address] [place] [address]Dr. Emelina Navarro EGFR-AF GRENADIAN 49 mL/min/1.73m2 Critically low >=60 [facility] Comment on above: Performed By: #### B MP ####[facility] [address] [place] [address]Dr. Emelina Navarro EGFR-NON AF GRENADIAN 41 mL/min/1.73m2 Critically low >=60 [facility] Comment on above: Performed By: #### B MP ####[facility] [address]ehfsoi[address] [place], [place] [address]Dr. Emelina Navarro Glucose [Mass/Vol] 163 mg/dL Critically high 74-106 T [facility] Comment on above: Performed By: #### B MP ####[facility] [address] [place] [address]Dr. Emelina Navarro Potassium [Moles/Vol] 3.6 mmol/L Normal 3.5-5.1 [facility] Comment on above: Performed By: #### B MP ####[facility] [address]lgios[address] [place] [address]Dr. Emelina Navarro Sodium [Moles/Vol] 139 mmol/L Normal 136-145 [facility] Comment on above: Performed By: #### B MP ####[facility] [address]adsq[address] [place], [place] [address]Dr. Emelina Navarro Urea nitrogen [Mass/Vol] 36.0 mg/dL Critically high 7.0-18.0 [facility] Comment on above: Performed By: #### B MP ####[facility] [address] [place], [place] [address]Dj. Emelina Navarro Urea nitrogen/Creatinine [Mass ratio] 21.3 mg/mg Normal [facility] Comment on above: Performed By: #### B ####[facility] [address] [place], [place] [address]Vv. Emelina Navarro Albumin [Mass/volume] in Ser um or PlasmaOrdered By: Ethan Cummings on 12-02-2022 Albumin [Mass/Vol] 3.9 g/dL 3.2-5.5 [facility] Basophils Auto (Bld) [#/Vol] Ordered By: Ethan Cummings on 12-02-2022 Basophils (Bld) [#/Vol] 0.1 10*3/uL 0.0-0.2 [facility] Basophils/100 WBC Auto (Bld) Ordered By: Ethan Cummings on 12-02-2022 Basophils/100 WBC (Bld) 0.7 % . [facility] CT biopsyOrdered By: Ethan Cummings on 12-02-2022 Transferrin [Mass/Vol] 240 mg/dL 180-380 [facility] Creatinine and Glomerular fi ltration rate.predicted panel (S/P/Bld)Ordered By: Ethan Cummings on 12-02-2022 Creatinine [Mass/Vol] 1.58 mg/dL 0.64-1.27 [facility] [place] [facility] Eosinophils Auto (Bld) [#/Vo l]Ordered By: Ethan Cummings on 12-02-2022 Eosinophils (Bld) [#/Vol] 0.4 10*3/uL 0.0-0.45 [facility] Eosinophils/100 WBC Auto (Bl d)Ordered By: Ethan Cummings on 12-02-2022 Eosinophils/100 WBC (Bld) 3.5 % . [facility] Erythrocyte distribution wid th Auto (RBC) [Ratio]Ordered By: Ethan Cummings on 12-02-2022 Erythrocyte distribution width (RBC) [Ratio] 19.6 % 12.0-14.8 [facility] Estimated glomerular filtrat ion rate (GFR) non- AmericanOrdered By: Ethan Cummings on 12-02-2022 GFR/1.73 sq M.predicted among non-blacks MDRD (S/P/Bld) [Vol rate/Area] 44 mL/Min [facility] Ferritin [Mass/volume] in Se rum or PlasmaOrdered By: Ethan Cummings on 12-02-2022 Ferritin [Mass/Vol] 85.7 ng/mL 23.9-336.2 [facility] Folate [Mass/volume] in Seru m or PlasmaOrdered By: Ethan Cummings on 12-02-2022 Folate [Mass/Vol] ng/mL >5.9 [facility] Comment on above: Folate reference ran ge: >5.9 ng/mlThe WHO technical consultation on folate and vitamin [id number] has determined that folate concentrations lessthan 4 ng/ml are considered deficient. Globulin Calc (S) [Mass/Vol] Ordered By: Ethan Cummings on 12-02-2022 Globulin (S) [Mass/Vol] 3.7 g/dL [facility] Hematocrit Auto (Bld) [Volum e fraction]Ordered By: Ethan Cummings on 12-02-2022 Hematocrit (Bld) [Volume fraction] 47.4 % 38.8-50.0 [facility] Hemoglobin [Mass/volume] in BloodOrdered By: Ethan Cummings on 12-02-2022 Hemoglobin (Bld) [Mass/Vol] 15.3 g/dL 13.0-17.0 [facility] Iron [Mass/volume] in Serum or PlasmaOrdered By: Ethan Cummings on 12-02-2022 Iron [Mass/Vol] 96 ug/dL 40-160 [facility] Iron binding capacity [Mass/ volume] in Serum or PlasmaOrdered By: Ethan Cummings on 12-02-2022 Iron binding capacity [Mass/Vol] 336 ug/dL 255-450 [facility] Iron saturation [Mass Fracti on] in Serum or PlasmaOrdered By: Ethan Cummings on 12-02-2022 Iron saturation [Mass fraction] 28.6 % 20-50 [facility] Laboratory - Chemistry and C hemistry - challengeOrdered By: Ethan Cummings on 12-02-2022 Cobalamin (Vitamin B12) [Mass/Vol] 1521 pg/mL 180-914 [facility] Leukocytes [#/volume] correc morris for nucleated erythrocytes in Blood by Automated counOrdered By: Ethan Cummings on 12-02-2022 WBC corrected for nucl RBC Auto (Bld) [#/Vol] 11.8 10*3/uL 4.1-10.5 [facility] Lymphocytes Auto (Bld) [#/Vo l]Ordered By: Ethan Cummings on 12-02-2022 Lymphocytes (Bld) [#/Vol] 2.4 10*3/uL 1.00-4.8 [facility] Lymphocytes/100 WBC Auto (Bl d)Ordered By: Ethan Cummings on 12-02-2022 Lymphocytes/100 WBC (Bld) 20.5 % . [facility] MCH Auto (RBC) [Entitic mass ]Ordered By: Ethan Cummings on 12-02-2022 MCH (RBC) [Entitic mass] 28.3 pg 27.5-35.2 [facility] MCHC Auto (RBC) [Mass/Vol]Or dered By: Ethan Cummings on 12-02-2022 MCHC (RBC) [Mass/Vol] 32.3 g/dL 32.5-35.6 [facility] [place] [facility] MCV Auto (RBC) [Entitic vol] Ordered By: Ethan Cummings on 12-02-2022 MCV (RBC) [Entitic vol] 87.5 fL 83.5-101 [facility] Monocytes Auto (Bld) [#/Vol] Ordered By: Ethan Cummings on 12-02-2022 Monocytes (Bld) [#/Vol] 1.0 10*3/uL 0.0-0.8 [facility] Monocytes/100 WBC Auto (Bld) Ordered By: Ethan Cummings on 12-02-2022 Monocytes/100 WBC (Bld) 8.2 % . [facility] Neutrophils Auto (Bld) [#/Vo l]Ordered By: Ethan Cummings on 12-02-2022 Neutrophils (Bld) [#/Vol] 7.9 10*3/uL 1.8-7.7 [facility] Neutrophils/100 WBC Auto (Bl d)Ordered By: Ethan Cummings on 12-02-2022 Neutrophils/100 WBC (Bld) 67.1 % . [facility] No Panel InformationOrdered By: Ethan Cummings on 12-02-2022 Estimated GFR () 53 mL/Min [facility] Comment on above: GFR estimated refere nce range: According to KDOQI guidelines, <60 ml/min/1.73m2 is sufficient to diagnose a patient with chronic kidney disease. Pharmacy Creatinine Clearance (Chem 53.88 [facility] Nucleated erythrocytes [Pres ence] in Blood by Automated countOrdered By: Ethan Cummings on 12-02-2022 Nucleated RBC Auto Ql (Bld) 0.1 /100{WBC} 0-0.5 [facility] Platelet mean volume Auto (B ld) [Entitic vol]Ordered By: Ethan Cummings on 12-02-2022 Platelet mean volume (Bld) [Entitic vol] 8.5 fL 6.6-10.1 [facility] Platelets Auto (Bld) [#/Vol] Ordered By: Ethan Cummings on 12-02-2022 Platelets (Bld) [#/Vol] 214 10*3/uL 150-450 [facility] Protein [Mass/volume] in Ser um or PlasmaOrdered By: Ethan Cummings on 12-02-2022 Protein [Mass/Vol] 7.6 g/dL 6.1-7.9 [facility] RBC Auto (Bld) [#/Vol]Ordere d By: Ethan Cummings on 12-02-2022 RBC (Bld) [#/Vol] 5.41 10*6/uL 3.90-5.60 [facility] Serum or plasma alanine valle otransferase measurement without P-5'-P (enzymatic activiOrdered By: Ethan Cummings on 12-02-2022 ALT No additional P-5'-P [Catalytic activity/Vol] 19 U/L 10-60 [facility] Serum or plasma albumin/glob ulin mass ratioOrdered By: Ethan Cummings on 12-02-2022 Albumin/Globulin [Mass ratio] 1.1 {ratio} [facility] Serum or plasma alkaline tosin sphatase measurement (enzymatic activity/volume)Ordered By: Ethan Cummings on 12-02-2022 ALP [Catalytic activity/Vol] 101 U/L 32-92 [facility] Serum or plasma anion gap de terminationOrdered By: Ethan Cummings on 12-02-2022 Anion gap [Moles/Vol] 13.2 mmol/L 6.0-15.0 [facility] Serum or plasma aspartate am inotransferase measurement (enzymatic activity/volume)Ordered By: Ethan Cummings on 12-02-2022 AST [Catalytic activity/Vol] 32 U/L 10-42 [facility] Serum or plasma calcium mike urement (mass/volume)Ordered By: Ethan Cummings on 12-02-2022 Calcium [Mass/Vol] 9.5 mg/dL 8.2-10.2 [facility] Serum or plasma chloride arash surement (moles/volume)Ordered By: Ethan Cummings on 12-02-2022 Chloride [Moles/Vol] 101 mmol/L 95-114 [facility] Serum or plasma glucose mike urement (mass/volume)Ordered By: Ethan Cummings on 12-02-2022 Glucose [Mass/Vol] 150 mg/dL 70-100 [facility] Comment on above: ADA recommended refe rence rangeRandom Glucose Reference Range is dependent on time and content of last meal. Glucose of more than 200 mg/dL in a nonstressed, ambulatory subject supports the diagnosis of Diabetes Mellitus. Serum or plasma potassium me asurement (moles/volume)Ordered By: Ethan Cummings on 12-02-2022 Potassium [Moles/Vol] 4.3 mmol/L 3.5-5.1 [facility] [place] [facility] Serum or plasma sodium measu rement (moles/volume)Ordered By: Ethan Cummings on 12-02-2022 Sodium [Moles/Vol] 140 mmol/L 136-146 [facility] Serum or plasma total biliru bin measurement (mass/volume)Ordered By: Ethan Cummings on 12-02-2022 Bilirubin [Mass/Vol] 1.5 mg/dL 0.3-1.2 [facility] Comment on above: Samples from patient s who have taken Naproxen have shown spurious elevation in Total Bilirubin levels. A metabolite of Naproxen, O-desmethylnaproxen, has been shown to interfere with the Jesi-Ananya method for measuring Total Bilirubin. Serum or plasma total carbon dioxide measurement (moles/volume)Ordered By: Ethan Cummings on 12-02-2022 CO2 [Moles/Vol] 30.1 mmol/L 22.0-30.0 [facility] Serum or plasma urea nitroge n measurement (mass/volume)Ordered By: Ethan Cummings on 12-02-2022 Urea nitrogen [Mass/Vol] 22 mg/dL 08-11 [facility] WBC Auto (Bld) [#/Vol]Ordere d By: Ethan Cummings on 12-02-2022 WBC (Bld) [#/Vol] 11.8 10*3/uL 4.1-10.5 [facility] PROF CHEM 8 (BAS METB)on Anion gap [Moles/Vol] 12.6 mmol/L Normal [facility] Comment on above: Performed By: #### B MP ####[facility] [address] [place] [address]Dr. Emelina Navarro Calcium [Mass/Vol] 9.0 mg/dL Normal 8.5-10.1 [facility] Comment on above: Performed By: #### B MP ####[facility] [address] [place] [phone]. Emelina Navarro Chloride [Moles/Vol] 99 mmol/L Normal 98-107 [facility] Comment on above: Performed By: #### B MP ####[facility] [address] [place], [place] [address]Cw. Emelina Navarro CO2 [Moles/Vol] 33.2 mmol/L Critically high 21.0-32.0 [facility] Comment on above: Performed By: #### B MP ####[facility] [address] [place] [id number]. Emelina Navarro Creatinine [Mass/Vol] 1.75 mg/dL Critically high 0.70-1.30 [facility] Comment on above: Performed By: #### B MP ####[facility] [address] [place] [address]Dr. Emelina Navarro EGFR-AF GRENADIAN 47 mL/min/1.73m2 Critically low >=60 [facility] Comment on above: Performed By: #### B MP ####[facility] [address]xc[address] [place] [address]Dr. Emelina Navarro EGFR-NON AF GRENADIAN 39 mL/min/1.73m2 Critically low >=60 [facility] Comment on above: Performed By: #### B MP ####[facility] [address] [place], [place] [address]Dr. Emelina Navarro Glucose [Mass/Vol] 132 mg/dL Critically high 74-106 T [facility] Comment on above: Performed By: #### B MP ####[facility] [address] [place], [place] [address]Dr. Emelina Navarro Potassium [Moles/Vol] 3.8 mmol/L Normal 3.5-5.1 [facility] Comment on above: Performed By: #### B MP ####[facility] [address] [place], [place] [address]Dr. Emelina Navarro Sodium [Moles/Vol] 141 mmol/L Normal 136-145 [facility] Comment on above: Performed By: #### B MP ####[facility] Vqhuekmugx566847 [address] [place], [place] [address]Dr. Emelina Navarro Urea nitrogen [Mass/Vol] 22.0 mg/dL Critically high 7.0-18.0 [facility] Comment on above: Performed By: #### B MP ####[facility] Hlgldzjgjx[address] [place], [place] [address]Dr. Emelina Navarro Urea nitrogen/Creatinine [Mass ratio] 12.6 mg/mg Normal [facility] Comment on above: Performed By: #### B MP ####[facility] Ppdfzblzle34[address] [place], [place] [address]Dr. Emelina Navarro A1C HEMOGLOBINon 11-07-2022 HbA1c (Bld) [Mass fraction] 7.4 % [facility] [employer] Other Glucose - FINGER STICKon Glucose [Mass/Vol] 109 mg/dL [email or web address] Other HbA1c (Bld) [Mass fraction]o n 11-07-2022 A1C HEMOGLOBIN [facility] [employer] Other PROF CHEM 8 (BAS METB)on Anion gap [Moles/Vol] 12.2 mmol/L Normal [facility] Comment on above: Performed By: #### B MP ####[facility] Zbadhealbi[address] [place] [address]Dr. Emelina Navarro Calcium [Mass/Vol] 8.7 mg/dL Normal 8.5-10.1 [facility] Comment on above: Performed By: #### B MP ####[facility] Tutzjmoavu[address] [place], [place] [address]Dr. Emelina Navarro Chloride [Moles/Vol] 101 mmol/L Normal 98-107 [facility] Comment on above: Performed By: #### B MP ####[facility] Yawtugyrmz[address] [place], [place] [address]Dr. Emelina Navarro CO2 [Moles/Vol] 29.9 mmol/L Normal 21.0-32.0 [facility] Comment on above: Performed By: #### B MP ####[facility] Vumhlcozxx[address] [place], [place] [address]Dr. Emelina Navarro Creatinine [Mass/Vol] 1.78 mg/dL Critically high 0.70-1.30 [facility] Comment on above: Performed By: #### B MP ####[facility] Htwwzuwvss[address] [place], [place] [address]Dr. Emelina Navarro EGFR-AF GRENADIAN 46 mL/min/1.73m2 Critically low >=60 [facility] Comment on above: Performed By: #### B MP ####[facility] Oykojnliok[address] [place], [place] [address]Dr. Emelina Navarro EGFR-NON AF GRENADIAN 38 mL/min/1.73m2 Critically low >=60 [facility] Comment on above: Performed By: #### B MP ####[facility] [address]eyxolgpc[address] [place] [address]Dr. Emelina Navarro Glucose [Mass/Vol] 127 mg/dL Critically high 74-106 T [facility] Comment on above: Performed By: #### B MP ####[facility] Lripcicfrq50[address] [place] [address]Dr. Awildanitza Ramon Potassium [Moles/Vol] 4.1 mmol/L Normal 3.5-5.1 [facility] Comment on above: Performed By: #### B MP ####[facility] Gsdaoiarxk[address] [place], [place] [address]Dr. Awildanitza Ramon Sodium [Moles/Vol] 139 mmol/L Normal 136-145 [facility] Comment on above: Performed By: #### B MP ####[facility] Nswoajwtxn[address] [place], [place] [address]Dr. Awildanitza Ramon Urea nitrogen [Mass/Vol] 39.0 mg/dL Critically high 7.0-18.0 [facility] Comment on above: Performed By: #### B MP ####[facility] Cxhugsowdj[address] [place], [place] [address]Dr. Emelina Navarro Urea nitrogen/Creatinine [Mass ratio] 21.9 mg/mg Normal [facility] Comment on above: Performed By: #### B MP ####[facility] Tbyirybopn[address] [place], [place] [address]Dr. Emelina Ramon BNPon 10-03-2022 Natriuretic peptide B (Bld) [Mass/Vol] 7092.0 pg/mL Critically high <=900.0 [facility] Comment on above: Performed By: #### H STROPN, BNP, CMP ####[facility] Yrwwalunzu[address] [place], [place] [address]Dr. Emelina Ramon CBC AUTO DIFFon 10-03-2022 BASO # 0.0 103/ul Normal 0.0-0.1 [facility] Comment on above: Performed By: #### C BC ####[facility] Of[address]xsxub[address] [place] [id number]. Emelina Navarro Basophils/100 WBC (Bld) 0.3 % Normal 0.2-2.0 [facility] Comment on above: Performed By: #### C BC ####[facility] Sjbzkbqyyf2425 [place] [phone]. Emelina Navarro EO # 0.3 103/ul Normal 0.0-0.7 [facility] Comment on above: Performed By: #### C BC ####[facility] Wtuawuowbr[address] [place], [place] [address]Dr. Emelina Navarro Eosinophils/100 WBC (Bld) 2.5 % Normal 0.9-7.0 [facility] Comment on above: Performed By: #### C BC ####[facility] Cabyrplquc[address] [place], [place] [address]Dr. Eemlina Navarro Erythrocyte distribution width (RBC) [Ratio] 16.1 % Critically high 11.0-15.0 [facility] Comment on above: Performed By: #### C BC ####[facility] Widjbrgjfy[address] [place] [address]Dr. Emelina Navarro Hematocrit (Bld) [Volume fraction] 40.4 % Critically low 42.0-54.0 [facility] Comment on above: Performed By: #### C BC ####[facility] Djdypjnyvx5438 [place] [phone]. Emelina Navarro Hemoglobin (Bld) [Mass/Vol] 12.9 g/dL Critically low 14.0-18.0 [facility] Comment on above: Performed By: #### C BC ####[facility] Nyntyduqdj1675 [place] [phone]. Emelina Navarro IG # 0.05 10e3/ul Critically high 0.00-0.03 [facility] Comment on above: Performed By: #### C BC ####[facility] Xscphcvvvp[address] [place], [place] [id number]. Emelina Navarro IG % 0.4 % Normal 0.0-0.5 [facility] Comment on above: Performed By: #### C BC ####[facility] Gttejwhhwz20[address] [place] [phone]. Emelina Navarro LYMPH # 1.5 103/ul Normal 1.2-3.8 [facility] Comment on above: Performed By: #### C BC ####[facility] Kucbcnogzr8266 [place], [place] [address]Nv. Emelina Navarro Lymphocytes/100 WBC (Bld) 13.1 % Critically low 20.5-60.0 [facility] Comment on above: Performed By: #### C BC ####[facility] Ftxicvqfnx3[address] [place] [phone]. Emelina Navarro MANUAL DIFF REQ NO [facility] Comment on above: Performed By: #### C BC ####[facility] Uiuwikkqgc8949 [place] [phone]. Emelina Navarro MCH (RBC) [Entitic mass] 28.9 pg Normal 25.9-34.0 [facility] Comment on above: Performed By: #### C BC ####[facility] Figzomiklp4247 [place] [phone]. Emelina Navarro MCHC (RBC) [Mass/Vol] 31.9 g/dL Normal 29.9-35.2 [facility] Comment on above: Performed By: #### C BC ####[facility] Sshyhkjeut9[address] [place] [phone]. Emelina Navarro MCV (RBC) [Entitic vol] 90.6 fL Normal 80.0-94.0 [facility] Comment on above: Performed By: #### C BC ####[facility] Kynoccdror9596 [place] [phone]. Emelina Navarro MONO # 0.8 103/ul Normal 0.3-0.8 [facility] Comment on above: Performed By: #### C BC ####[facility] Iuppoutlgd8970 [place] [phone]. Emelina Navarro Monocytes/100 WBC (Bld) 7.0 % Normal 1.7-12.0 [facility] Comment on above: Performed By: #### C BC ####[facility] Svijoiovef37[address] [place], [place] [address]It. Emelina Navarro NEUT # 8.8 103/ul Critically high 1.4-6.5 [facility] Comment on above: Performed By: #### C BC ####[facility] Oaahbzuqed84[address] [place], [place] [address]As. Emelina Navarro Neutrophils/100 WBC (Bld) 76.7 % Critically high 43.0-75.0 [facility] Comment on above: Performed By: #### C BC ####[facility] Bcrlfjqohz2806 [place] [phone]. Emelina Navarro Platelet mean volume (Bld) [Entitic vol] 9.9 fL Normal 9.5-13.5 [facility] Comment on above: Performed By: #### C BC ####[facility] Jsdxsezchc3639 [place] [phone]. Emelina Navarro PLT 201 103/ul Normal 150-450 [facility] Comment on above: Performed By: #### C BC ####[facility] Jdmjbqklyr8799 [place], [place] [address]Sp. Emelina Navarro RBC 4.46 106/ul Critically low 4.70-6.10 [facility] Comment on above: Performed By: #### C BC ####[facility] Zpjxzyzqnj7403 [place] [phone]. Emelina Navarro WBC 11.4 103/ul Critically high 4.0-11.[address] [facility] Comment on above: Performed By: #### C BC ####[facility] Xqszenhufd2133 [place] [phone]. Emelina Navarro [facility] SARS-CoV-2 (COVID-19) RNA RADHA+probe Ql (Unsp spec) Not detected Normal NOT DETECTED [facility] Comment on above: Result Comment: When [...] for this test is supported by the Automobile Mechanic Supervisor of Health and Human Service's declaration that [...] be used). Performed By: #### C VDTBH ####[facility] Zcqgtanteh22[address] [place] [address]Dr. Emelina Navarro PROF 14(COMP METB)on 022 Albumin [Mass/Vol] 3.1 g/dL Critically low 3.4-5.0 [facility] Comment on above: Performed By: #### H STROPN, BNP, CMP ####[facility] Nflhjqhgwz56[address] [place] [address]Dr. Emelina Navarro Albumin/Globulin [Mass ratio] 0.8 {ratio} Normal [facility] Comment on above: Performed By: #### H STROPN, BNP, CMP ####[facility] Frzinrmcjb6414 [place] [address]Dr. Emelina Navarro ALP [Catalytic activity/Vol] 118 U/L Critically high 46-116 [facility] Comment on above: Performed By: #### H STROPN, BNP, CMP ####[facility] Ytogqtmuez07[address] [place] [address]Dr. Emelina Navarro ALT [Catalytic activity/Vol] 22 U/L Normal 16-63 [facility] Comment on above: Performed By: #### H STROPN, BNP, CMP ####[facility] Zjqcyrhuoi9656 [place] [address]Dr. Emelina Navarro Anion gap [Moles/Vol] 8.6 mmol/L Normal [facility] Comment on above: Performed By: #### H STROPN, BNP, CMP ####[facility] Qjbviscutj6694 [place] [address]Dr. Emelina Navarro AST [Catalytic activity/Vol] 23 U/L Normal 15-37 [facility] Comment on above: Performed By: #### H STROPN, BNP, CMP ####[facility] Ewaxeigbef8[address] [place] [address]Dr. Emelina Navarro Bilirubin [Mass/Vol] 1.0 mg/dL Normal 0.2-1.0 [facility] Comment on above: Performed By: #### H STROPN, BNP, CMP ####[facility] Nshfnodbon8696 [place] [address]Dr. Emelina Navarro Calcium [Mass/Vol] 8.4 mg/dL Critically low 8.5-10.1 [facility] Comment on above: Performed By: #### H STROPN, BNP, CMP ####[facility] Sevngvtmcn[address] [place], [place] [address]Dr. Emelina Navarro Chloride [Moles/Vol] 101 mmol/L Normal 98-107 [facility] Comment on above: Performed By: #### H STROPN, BNP, CMP ####[facility] Aeajxhyavk[address] [place], [place] [address]Dr. Emelina Navarro CO2 [Moles/Vol] 33.3 mmol/L Critically high 21.0-32.0 [facility] Comment on above: Performed By: #### H STROPN, BNP, CMP ####[facility] Fouuqszhyi[address] [place] [address]Dr. Emelina Navarro Creatinine [Mass/Vol] 1.52 mg/dL Critically high 0.70-1.30 [facility] Comment on above: Performed By: #### H STROPN, BNP, CMP ####[facility] Udjhehfxgi7375 [place] [address]Dr. Emelina Navarro EGFR-AF GRENADIAN 56 mL/min/1.73m2 Critically low >=60 [facility] Comment on above: Performed By: #### H STROPN, BNP, CMP ####[facility] Omfghlcyrv5[address] [place] [address]Dr. Emelina Navarro EGFR-NON AF GRENADIAN 46 mL/min/1.73m2 Critically low >=60 [facility] Comment on above: Performed By: #### H STROPN, BNP, CMP ####[facility] Fnmwsswbgq1551 [place] [address]Dr. Emelina Navarro Globulin (S) [Mass/Vol] 4.1 g/dL Normal [facility] Comment on above: Performed By: #### H STROPN, BNP, CMP ####[facility] Cuxxaxnzeo[address] [place] [address]Dr. Emelina Navarro Glucose [Mass/Vol] 141 mg/dL Critically high 74-106 T [facility] Comment on above: Performed By: #### H STROPN, BNP, CMP ####[facility] Xsxvimerus65[address] [place] [address]Dr. Emelina Navarro Potassium [Moles/Vol] 3.9 mmol/L Normal 3.5-5.1 [facility] Comment on above: Performed By: #### H STROPN, BNP, CMP ####[facility] Cctfijmpbl[address] [place], [place] [address]Dr. Emelina Navarro Protein [Mass/Vol] 7.2 g/dL Normal 6.4-8.2 [facility] Comment on above: Performed By: #### H STROPN, BNP, CMP ####[facility] Ymldqjzdtp9[address] [place] [address]Dr. Emelina Navarro Sodium [Moles/Vol] 139 mmol/L Normal 136-145 [facility] Comment on above: Performed By: #### H STROPN, BNP, CMP ####[facility] Defwgfoxbx4606 [place] [address]Dr. Emelina Navarro Urea nitrogen [Mass/Vol] 26.0 mg/dL Critically high 7.0-18.0 [facility] Comment on above: Performed By: #### H STROPN, BNP, CMP ####[facility] Uvizjqtzei0[address] [place] [address]Dr. Emelina Navarro Urea nitrogen/Creatinine [Mass ratio] 17.1 mg/mg Normal [facility] Comment on above: Performed By: #### H STROPN, BNP, CMP ####[facility] Jclaieixwx16[address] [place] [phone]. Emelina Navaror PROTIMEon 10-03-2022 INR Coag (PPP) [Relative time] 1.76 {INR} Normal [facility] Comment on above: Performed By: #### P T, PTT ####[facility] Ftobbdcscy[address] [place] [address]Dr. Emelina Navarro INR GUIDELINES SEE BELOW Normal [facility] Comment on above: Result Comment: WENDY RED INR: 2.0 - 3.0 CONDITIONS NOT LISTED BELOW 2.5 - 3.5 FOR PROSTHETIC HEART VALVE REPLACEMENT 2.5 - 3.5 RECURRENT THROMBOSIS Performed By: #### P T, PTT ####[facility] Mwgndgqezz04[address] [place] [address]Dr. Emelina Navarro PT Coag (PPP) [Time] 18.3 s Critically high 9.0-11.6 [facility] Comment on above: Performed By: #### P T, PTT ####[facility] Wqcouoskhn12[address] [place] [address]Dr. Emelina Navarro PTTon 10-03-2022 aPTT Coag (Bld) [Time] 33.9 s Normal 22.3-36.2 [facility] Comment on above: Performed By: #### P T, PTT ####[facility] Ulkqxyfqej26[address] [place] [address]Dr. Emelina Navarro TROPONIN, HIGH SENSITIVITYon 10-03-2022 HSTROP 40.2 pg/mL Normal 4.0-76.1 [facility] Comment on above: Result Comment: CUT- OFF POINTS HAVE BEEN ESTABLISHED BASED ON THE FOURTH UNIVERSAL DEFINITIONS OF MYOCARDIALINFARCTION. THE UPPER REFERENCE LIMIT (URL) OF TROPONIN, DEFINED THE 99TH PERCENTILE OFcTnI DISTRIBUTION IN A REFERENCE POPULATION, HAS BEEN CONFIRMED THE DECISION THRESHOLDFOR ND DIAGNOSIS. Performed By: #### H STROPN, BNP, CMP ####[facility] Aphxrluxlc8449 [place] [address]Dr. Emelina Navarro XR CHEST 1 Von 10-03-2022 XR CHEST 1 V Normal [facility] PTH INTACTon 09-19-2022 PTH, Intact 52 pg/mL Normal 15-65 [facility] Comment on above: Performed By: #### P THINT ####[facility] Zbsegyofqm[address] [place], [place] [address]Dr. Emelina Navarro FERRITINon 09-18-2022 Ferritin [Mass/Vol] 92.0 ng/mL Normal 26.0-388.0 [facility] Comment on above: Performed By: #### V ITAD, FERR, FETIBC ####[facility] Plmyryklxh6[address] [place] [address]Dr. Emelina Navarro HEMOGRAM AND PLATELon 2021 Hematocrit (Bld) [Volume fraction] 44.3 % Normal 42.0-54.0 [facility] Comment on above: Performed By: #### H H ####[facility] Lxvpmdqgkf[address] [place], [place] [address]Dr. Emelina Navarro Hemoglobin (Bld) [Mass/Vol] 14.0 g/dL Normal 14.0-18.0 [facility] Comment on above: Performed By: #### H H ####[facility] Umaddehxag[address] [place], [place] [address]Dr. Emelina Navarro MCH (RBC) [Entitic mass] 29.0 pg Normal 25.9-34.0 [facility] Comment on above: Performed By: #### H H ####[facility] Zojgggdjaw[address] [place], [place] [address]Dr. Emelina Navarro MCHC (RBC) [Mass/Vol] 31.6 g/dL Normal 29.9-35.2 [facility] Comment on above: Performed By: #### H H ####[facility] Vnigmhwhfs[address] [place], [place] [address]Dr. Emelina Navarro MCV (RBC) [Entitic vol] 91.7 fL Normal 80.0-94.0 [facility] Comment on above: Performed By: #### H H ####[facility] Uhyydphtyy[address] [place], [place] [address]DrWesley Navarro PLT 187 103/ul Normal 150-450 [facility] Comment on above: Performed By: #### H H ####[facility] Vmlsldkpyo1637 [place] [phone]. Emelina Navarro RBC 4.83 106/ul Normal 4.70-6.10 [facility] Comment on above: Performed By: #### H H ####[facility] Kuhjtjjeft1070 [place] [phone]. Emelina Navarro WBC 13.9 103/ul Critically high 4.0-11.[address] [facility] Comment on above: Performed By: #### H H ####[facility] Lxuzjfthyt2269 [place] [phone]. Emelina Navarro IRON AND TIBCon 09-18-2022 % SATURATION 28.9 % Normal [facility] Comment on above: Performed By: #### V ITAD, FERR, FETIBC ####[facility] Iucalgdsdi51[address] [place] [address]Dr. Emelina Navarro Iron [Mass/Vol] 76.0 ug/dL Normal 65.0-175.0 [facility] Comment on above: Performed By: #### V ITAD, FERR, FETIBC ####[facility] Wounbdcjso37[address] [place] [address]Dr. Emelina Navarro TIBC DIRECT 263.0 ug/dL Normal 250.0-450. 0 [facility] Comment on above: Performed By: #### V ITAD, FERR, FETIBC ####[facility] Ksfbhsgefc45[address] [place] [address]Dr. Emelina Navarro MAGNESIUMon 09-18-2022 Magnesium [Mass/Vol] 2.3 mg/dL Normal 1.8-2.4 [facility] Comment on above: Performed By: #### R ENAL, URIC, MG ####[facility] Mbaomgtdnf[address] [place] [address]Dr. Emelina Navarro RENAL FUNCTION PANELon 09-18 Albumin [Mass/Vol] 3.5 g/dL Normal 3.4-5.0 [facility] Comment on above: Performed By: #### R ENAL, URIC, MG ####[facility] Yuvrgfsdjw9982 [place] [address]Dr. Emelina Navarro Calcium [Mass/Vol] 8.4 mg/dL Critically low 8.5-10.1 [facility] Comment on above: Performed By: #### R ENAL, URIC, MG ####[facility] Njcdqfgyjd[address] [place] [address]Dr. Emelina Navarro Chloride [Moles/Vol] 100 mmol/L Normal 98-107 [facility] Comment on above: Performed By: #### R ENAL, URIC, MG ####[facility] Mxpfhaflpo3302 [place] [address]Dr. Emelina Navarro CO2 [Moles/Vol] 31.0 mmol/L Normal 21.0-32.0 [facility] Comment on above: Performed By: #### R ENAL, URIC, MG ####[facility] Lmaiafiifw[address] [place], [place] [address]Dr. Awildanitza Navarro Creatinine [Mass/Vol] 1.63 mg/dL Critically high 0.70-1.30 [facility] Comment on above: Performed By: #### R ENAL, URIC, MG ####[facility] Xkqtgwzxup[address] [place], [place] [address]Dr. Emelina Ramon EGFR-AF GRENADIAN 51 mL/min/1.73m2 Critically low >=60 [facility] Comment on above: Performed By: #### R ENAL, URIC, MG ####[facility] Izxfkbbdua[address] [place], [place] [address]Dr. Eemlina Ramon EGFR-NON AF GRENADIAN 42 mL/min/1.73m2 Critically low >=60 [facility] Comment on above: Performed By: #### R ENAL, URIC, MG ####[facility] Lmqszgbdpq[address] [place], [place] [address]Dr. Awildanitza Navarro Glucose [Mass/Vol] 135 mg/dL Critically high 74-106 T [facility] Comment on above: Performed By: #### R ENAL, URIC, MG ####[facility] Npcoyzshce[address] [place], [place] [address]Dr. Emelina Navarro Phosphate [Mass/Vol] 3.4 mg/dL Normal 2.6-4.7 [facility] Comment on above: Performed By: #### R ENAMEYA URIC, MG ####[facility] Ssvzupbkld4453 [place] [address]Dr. Emelina Navarro Potassium [Moles/Vol] 4.5 mmol/L Normal 3.5-5.1 [facility] Comment on above: Performed By: #### R ENAMEYA URIC, MG ####[facility] Sotzmfyyub67[address] [place] [address]Dr. Emelina Navarro Sodium [Moles/Vol] 137 mmol/L Normal 136-145 [facility] Comment on above: Performed By: #### R UZAIR URIC, MG ####[facility] Inphphyklk0312 [place] [address]Dr. Emelina Navarro Urea nitrogen [Mass/Vol] 26.0 mg/dL Critically high 7.0-18.0 [facility] Comment on above: Performed By: #### R ENAMEYA URIC, MG ####[facility] Ddrtmxmngr0612 [place] [address]Dr. Emelina Navarro UA RANDOM W/MICROSCOPICon BACTERIA NONE SEEN Normal NONE SEEN [facility] Comment on above: Performed By: #### U AMIC ####[facility] Nqirwybbtq5656 [place] [address]Dr. Emelina Navarro Bilirubin Ql (U) Negative Normal NEGATIVE [facility] Comment on above: Performed By: #### U AMIC ####[facility] Odokozsexe[address] [place] [address]Dr. Emelina Navarro CAST NONE SEEN Normal NONE SEEN [facility] Comment on above: Performed By: #### U AMIC ####[facility] Hpepsszfbv[address] [place], [place] [address]Dr. Emelina Navarro Clarity (U) CLEAR Normal CLEAR [facility] Comment on above: Performed By: #### U AMIC ####[facility] Yblnuesodi4960 [place] [address]Dr. Emelina Navarro Color (U) LT. YELLOW Normal YELLOW [facility] Comment on above: Performed By: #### U AMIC ####[facility] Avnejjfhcc0097 [place] [address]Dr. Emelina Navarro Crystals LM Nom (Urine sed) NONE SEEN Normal NONE SEEN [facility] Comment on above: Performed By: #### U AMIC ####[facility] Xyoiwfgfdn4262 [place] [address]Dr. Emelina Navarro Epithelial cells LM Ql (Urine sed) NONE SEEN Normal NONE SEEN /RARE [facility] Comment on above: Performed By: #### U AMIC ####[facility] Hrvtwxmasn4[address] [place] [address]Dr. Emelina Navarro Glucose Ql (U) >1000 Abnormal NEGATIVE [facility] Comment on above: Performed By: #### U AMIC ####[facility] Krptgqdxia5747 [place] [address]Dr. Emelina Navarro Hemoglobin Ql (U) Negative Normal NEGATIVE [facility] Comment on above: Performed By: #### U AMIC ####[facility] Jljgvtfzqi5806 [place] [address]Dr. Emelina Navarro Ketones Ql (U) Negative Normal NEGATIVE [facility] Comment on above: Performed By: #### U AMIC ####[facility] Khthnwvvup67[address] [place] [address]Dr. Emelina Navarro LEUKOCYTES Negative Normal NEGATIVE [facility] Comment on above: Performed By: #### U AMIC ####[facility] Futktqicqj8372 [place] [address]Dr. Emelina Navarro MUCOUS NONE SEEN Normal NONE SEEN [facility] Comment on above: Performed By: #### U AMIC ####[facility] Mmhmxwyifo0436 [place] [address]Dr. Emelina Navarro Nitrite Ql (U) Negative Normal NEGATIVE [facility] Comment on above: Performed By: #### U AMIC ####[facility] Unwsjbalkn8475 [place] [address]Dr. Emelina Navarro pH (U) 6.0 [pH] Normal 5-9 [facility] Comment on above: Performed By: #### U AMIC ####[facility] Kzhdkcovum1261 [place] [address]Dr. Emelina Navarro RBC 0-2 Normal 0-2 [facility] Comment on above: Performed By: #### U AMIC ####[facility] Lonbbekiaq6[address] [place] [phone]. Emelina Navarro SPEC GRAVITY 1.010 Normal 1.005-<=1. 025 [facility] Comment on above: Performed By: #### U AMIC ####[facility] Rdkqtvlhxk8245 [place] [address]Dr. Awildanitza Navarro UA PROTEIN Negative Normal NEGATIVE/ TRACE [facility] Comment on above: Performed By: #### U AMIC ####[facility] Wgijhhsqkb7648 [place] [address]Dr. Awildanitza Navarro Urobilinogen Qn (U) 0.2 {Ashley'U}/dL Normal 0.2 - 1. 0 [facility] Comment on above: Performed By: #### U AMIC ####[facility] Ceogxuxqhi[address] [place], [place] [address]Dr. Emelina Navarro WBC NONE SEEN Normal NONE SEEN [facility] Comment on above: Performed By: #### U AMIC ####[facility] [address] [place] [address]Dr. Emelina Navarro URIC ACID SERUMon 09-18-2022 Urate [Mass/Vol] 9.2 mg/dL Critically high 3.5-7.2 [facility] Comment on above: Performed By: #### R ENAL, URIC, MG ####[facility] [address]rcx[address] [place] [address]Dr. Emelina Navarro URINE T PROTEIN CREAT RATIOo n 09-18-2022 Protein (U) [Mass/Vol] 17.5 mg/dL Critically high <=12.0 [facility] Comment on above: Performed By: #### U RTPCR ####[facility] Pypinhpkdw[address] [place], [place] [address]Dr. Emelina Navarro UR PROT CREAT RAT 0.61 Normal [facility] Comment on above: Performed By: #### U RTPCR ####[facility] [address] [place] [address]Dr. Emelina Navarro URINE CREAT 28.53 mg/dL Normal 20.00-300. 00 [facility] Comment on above: Performed By: #### U RTPCR ####[facility] Q[address]ls[address] [place] [id number]. Emelina Navarro VITAMIN D 25 OHon 09-18-2022 VIT D 25-OH 49.6 ng/mL Normal [facility] Comment on above: Performed By: #### V ITANA CRUZ, FETIBC ####[facility] [address]ra[address] [place] [address]Dr. Emelina Navarro VIT D RANGES SEE BELOW Normal [facility] Comment on above: Result Comment: <20 ng/mL Vit D deficient 20 - <30 ng/mL Vit D insufficient 30 - 100 ng/mL Vit D sufficient >100 ng/mL Potential Toxicity Performed By: #### V ITADANA, FETIBC ####[facility] [address]wh[address] [place] [address]Dr. Emelina Navarro A1C HEMOGLOBINon 07-31-2022 HbA1c (Bld) [Mass fraction] 6.7 % [email or web address] Other Glucose - FINGER STICKon Glucose [Mass/Vol] 338 mg/dL [email or web address] Other HbA1c (Bld) [Mass fraction]o n 07-31-2022 A1C HEMOGLOBIN [facility] [employer] Other BNPon 07-19-2022 Natriuretic peptide B (Bld) [Mass/Vol] 7571.0 pg/mL Critically high <=900.0 [facility] Comment on above: Performed By: #### B MP, BNP ####[facility] [address]cqs[address] [place] [id number]. Emelina Navarro PROF CHEM 8 (BAS METB)on Anion gap [Moles/Vol] 11.6 mmol/L Normal [facility] Comment on above: Performed By: #### B MP, BNP ####[facility] X[address]ax[address]ftkh[address] [place] [address]Dr. Emelina Navarro Calcium [Mass/Vol] 9.2 mg/dL Normal 8.5-10.1 [facility] Comment on above: Performed By: #### B MP, BNP ####[facility] Gsuxkkzrkb[address] [place], [place] [address]Dr. Emelina Navarro Chloride [Moles/Vol] 102 mmol/L Normal 98-107 [facility] Comment on above: Performed By: #### B MP, BNP ####[facility] Gjhamagbfk[address] [place], [place] [address]Dr. Emelina Navarro CO2 [Moles/Vol] 30.6 mmol/L Normal 21.0-32.0 [facility] Comment on above: Performed By: #### B MP, BNP ####[facility] Hilrdjunxk[address]20[address] [place], [place] [address]Dr. Emelina Navaror Creatinine [Mass/Vol] 1.72 mg/dL Critically high 0.70-1.30 [facility] Comment on above: Performed By: #### B MP, BNP ####[facility] Rtubjigbrf[address] [place], [place] [address]Dr. Emelina Navarro EGFR-AF GRENADIAN 48 mL/min/1.73m2 Critically low >=60 [facility] Comment on above: Performed By: #### B MP, BNP ####[facility] Ftgvjbvcfl164[address] [place], [place] [address]Dr. Emelina Navarro EGFR-NON AF GRENADIAN 40 mL/min/1.73m2 Critically low >=60 [facility] Comment on above: Performed By: #### B MP, BNP ####[facility] Irlqtnmknm[address] [place], [place] [address]Dr. Emelina Navarro Glucose [Mass/Vol] 76 mg/dL Normal 74-106 [facility] Comment on above: Performed By: #### B MP, BNP ####[facility] Umyajulfug355[address] [place], [place] [address]Dr. Awildanitza Navarro Potassium [Moles/Vol] 4.2 mmol/L Normal 3.5-5.1 [facility] Comment on above: Performed By: #### B MP, BNP ####[facility] Yhsoptmuhq9[address] [place], [place] [address]Dr. Emelina Navarro Sodium [Moles/Vol] 140 mmol/L Normal 136-145 [facility] Comment on above: Performed By: #### B MP, BNP ####[facility] Kioikjltqu[address] [place], [place] [address]Dr. Emelina Navarro Urea nitrogen [Mass/Vol] 19.0 mg/dL Critically high 7.0-18.0 [facility] Comment on above: Performed By: #### B MP, BNP ####[facility] Ircwymkiod[address] [place], [place] [address]Dr. Emelina Ramon Urea nitrogen/Creatinine [Mass ratio] 11.0 mg/mg Normal [facility] Comment on above: Performed By: #### B MP, BNP ####[facility] Rbwatyiqwy232[address] [place], [place] [address]Dr. Emelina Navarro CBC AUTO DIFFon 06-16-2022 BASO # 0.0 103/ul Normal 0.0-0.1 [facility] Comment on above: Performed By: #### C BC ####[facility] Hicnbelxlv9[address] [place], [place] [address]Dr. Emelina Ramon Basophils/100 WBC (Bld) 0.1 % Critically low 0.2-2.0 [facility] Comment on above: Performed By: #### C BC ####[facility] Djvwuicyxw230[address] [place], [place] [address]Dr. Emelina Navarro EO # 0.1 103/ul Normal 0.0-0.7 [facility] Comment on above: Performed By: #### C BC ####[facility] Dmxsbbavwl9625[address] [place], [place] [address]Dr. Emelina Ramon Eosinophils/100 WBC (Bld) 0.4 % Critically low 0.9-7.0 [facility] Comment on above: Performed By: #### C BC ####[facility] A[address]jtcdw[address] [place] [address]Dr. Emelina Navarro Erythrocyte distribution width (RBC) [Ratio] 17.1 % Critically high 11.0-15.0 [facility] Comment on above: Performed By: #### C BC ####[facility] F[address]csniysop[address] [place] [address]Dr. Emelina Navarro Hematocrit (Bld) [Volume fraction] 44.7 % Normal 42.0-54.0 [facility] Comment on above: Performed By: #### C BC ####[facility] Zqivgncsev[address] [place], [place] [address]Dr. Emelina Navarro Hemoglobin (Bld) [Mass/Vol] 14.5 g/dL Normal 14.0-18.0 [facility] Comment on above: Performed By: #### C BC ####[facility] Nrzotzssis[address] [place], [place] [address]Dr. Emelina Navarro IG # 0.07 10e3/ul Critically high 0.00-0.03 [facility] Comment on above: Performed By: #### C BC ####[facility] Lqbdugsgfx[address] [place], [place] [address]Dr. Awildanitza Navarro IG % 0.4 % Normal 0.0-0.5 [facility] Comment on above: Performed By: #### C BC ####[facility] Desytfzvrs[address] [place], [place] [address]Dr. Emelina Navarro LYMPH # 2.0 103/ul Normal 1.2-3.8 [facility] Comment on above: Performed By: #### C BC ####[facility] Gdqeqwtzci64[address] [place], [place] [address]Dr. Awildanitza Navarro Lymphocytes/100 WBC (Bld) 12.1 % Critically low 20.5-60.0 [facility] Comment on above: Performed By: #### C BC ####[facility] Oyxulquewd63[address] [place], [place] [address]Dr. Awildanitza Navarro MANUAL DIFF REQ NO Normal [facility] Comment on above: Performed By: #### C BC ####[facility] Ltxnnpztte59[address] [place], [place] [address]Dr. Emelina Navarro MCH (RBC) [Entitic mass] 28.2 pg Normal 25.9-34.0 [facility] Comment on above: Performed By: #### C BC ####[facility] [address]ltc[address] [place] [address]Dr. Emelina Navarro MCHC (RBC) [Mass/Vol] 32.4 g/dL Normal 29.9-35.2 [facility] Comment on above: Performed By: #### C BC ####[facility] [address]hkz[address] [place] [address]Dr. Emelina Navarro MCV (RBC) [Entitic vol] 86.8 fL Normal 80.0-94.0 [facility] Comment on above: Performed By: #### C BC ####[facility] [address]fgumc[address] [place] [address]Dr. Emelina Ramon MONO # 0.7 103/ul Normal 0.3-0.8 [facility] Comment on above: Performed By: #### C BC ####[facility] [address]ebvoj[address] [place] [address]Dr. Emelina Ramon Monocytes/100 WBC (Bld) 4.3 % Normal 1.7-12.0 [facility] Comment on above: Performed By: #### C BC ####[facility] [address]joiphb[address] [place] [address]Dr. Emelina Navarro NEUT # 13.4 103/ul Critically high 1.4-6.[address] [facility] Comment on above: Performed By: #### C BC ####[facility] B[address]xjbkqi6[address] [place] [address]Dr. Emelina Ramon Neutrophils/100 WBC (Bld) 82.7 % Critically high 43.0-75.0 [facility] Comment on above: Performed By: #### C BC ####[facility] Khpjosbfdk[address] [place] [address]Dr. Emelina Navarro Platelet mean volume (Bld) [Entitic vol] 9.5 fL Normal 9.5-13.5 [facility] Comment on above: Performed By: #### C BC ####[facility] [address]kt[address] [place] [phone]. Awildanitza Ramon PLT 218 103/ul Normal 150-450 [facility] Comment on above: Performed By: #### C BC ####[facility] Drhpoclvbv5220 [place] [address]Dr. Awildanitza Navarro RBC 5.15 106/ul Normal 4.70-6.10 [facility] Comment on above: Performed By: #### C BC ####[facility] Zbmtrotmzq[address] [place] [address]Dr. Awildanitza Ramon WBC 16.2 103/ul Critically high 4.0-11.0 [facility] Comment on above: Performed By: #### C BC ####[facility] Wydpoyrlqn[address] [place], [place] [address]Dr. Emelina Navarro PROF 14(COMP METB)on 022 Albumin [Mass/Vol] 3.3 g/dL Critically low 3.4-5.0 [facility] Comment on above: Performed By: #### C MP ####[facility] V[address]ic[address]kvj[address] [place] [address]Dr. Emelina Navarro Albumin/Globulin [Mass ratio] 0.8 {ratio} Normal [facility] Comment on above: Performed By: #### C MP ####[facility] Y[address]chksdks[address] [place] [address]Dr. Emelina Navarro ALP [Catalytic activity/Vol] 81 U/L Normal 46-116 [facility] Comment on above: Performed By: #### C MP ####[facility] Pltvroychw[address] [place] [address]Dr. Emelina Navarro ALT [Catalytic activity/Vol] 34 U/L Normal 16-63 [facility] Comment on above: Performed By: #### C MP ####[facility] Ebrurkmwyj[address] [place], [place] [address]Dr. Emelina Navarro Anion gap [Moles/Vol] 14.1 mmol/L Normal [facility] Comment on above: Performed By: #### C MP ####[facility] Hmsjonbbdo[address] [place] [address]Dr. Emelina Navarro AST [Catalytic activity/Vol] 22 U/L Normal 15-37 [facility] Comment on above: Performed By: #### C MP ####[facility] X[address]jexow[address] [place] [address]Dr. Emelina Navarro Bilirubin [Mass/Vol] 1.0 mg/dL Normal 0.2-1.0 [facility] Comment on above: Performed By: #### C MP ####[facility] Irdkdcfkwi[address] [place], [place] [address]Dr. Emelina Navarro Calcium [Mass/Vol] 8.6 mg/dL Normal 8.5-10.1 [facility] Comment on above: Performed By: #### C MP ####[facility] Olvakjhtoh[address] [place], [place] [address]Dr. Emelina Navarro Chloride [Moles/Vol] 98 mmol/L Normal 98-107 [facility] Comment on above: Performed By: #### C MP ####[facility] Bofsdpqiox[address] [place], [place] [address]Dr. Emelina Navarro CO2 [Moles/Vol] 28.0 mmol/L Normal 21.0-32.[address] [facility] Comment on above: Performed By: #### C MP ####[facility] Awwvinubiq96[address] [place], [place] [address]Dr. Emelina Navarro Creatinine [Mass/Vol] 1.83 mg/dL Critically high 0.70-1.30 [facility] Comment on above: Performed By: #### C MP ####[facility] Juwkgqhpnz4[address] [place], [place] [address]Dr. Emelina Navarro EGFR-AF GRENADIAN 45 mL/min/1.73m2 Critically low >=60 [facility] Comment on above: Performed By: #### C MP ####[facility] Zsoumeahgo7[address] [place], [place] [address]Dr. Emelina Navarro EGFR-NON AF GRENADIAN 37 mL/min/1.73m2 Critically low >=60 [facility] Comment on above: Performed By: #### C MP ####[facility] Q[address]zwkobe20[address] [place] [address]Dr. Emelina Navarro Globulin (S) [Mass/Vol] 4.3 g/dL Normal [facility] Comment on above: Performed By: #### C MP ####[facility] Djpiwolvbo[address] [place] [address]Dr. Emelina Navarro Glucose [Mass/Vol] 173 mg/dL Critically high 74-106 [facility] Comment on above: Performed By: #### C MP ####[facility] Ndfclngwpf16[address] [place] [address]Dr. Emelina Navarro Potassium [Moles/Vol] 4.1 mmol/L Normal 3.5-5.1 [facility] Comment on above: Performed By: #### C MP ####[facility] Yjlzdrrgzm[address] [place], [place] [address]Dr. Emelina Navarro Protein [Mass/Vol] 7.6 g/dL Normal 6.4-8.2 [facility] Comment on above: Performed By: #### C MP ####[facility] Zbqixtlxmm[address] [place], [place] [address]Dr. Emelina Navarro Sodium [Moles/Vol] 136 mmol/L Normal 136-145 [facility] Comment on above: Performed By: #### C MP ####[facility] Hgsucotfbx33[address] [place], [place] [address]Dr. Emelina Navarro Urea nitrogen [Mass/Vol] 46.0 mg/dL Critically high 7.0-18.0 [facility] Comment on above: Performed By: #### C MP ####[facility] Qqmrbtqnxi0920[address] [place], [place] [address]Dr. Emelina Navarro Urea nitrogen/Creatinine [Mass ratio] 25.1 mg/mg Normal [facility] Comment on above: Performed By: #### C MP ####[facility] [address]otmkfy[address] [place] [address]Dr. Emelina Navarro PROTIMEon 06-16-2022 INR Coag (PPP) [Relative time] 2.12 {INR} Normal [facility] Comment on above: Performed By: #### P T ####[facility] [address]tf[address]wwk[address] [place] [address]Dr. Emelina Ramon INR GUIDELINES SEE BELOW Normal [facility] Comment on above: Result Comment: WENDY RED INR: 2.0 - 3.0 CONDITIONS NOT LISTED BELOW 2.5 - 3.5 FOR PROSTHETIC HEART VALVE REPLACEMENT 2.5 - 3.5 RECURRENT THROMBOSIS Performed By: #### P T ####[facility] Zppspispnd[address] [place], [place] [address]Dr. Emelina Navarro PT Coag (PPP) [Time] 21.8 s Critically high 9.0-11.6 [facility] Comment on above: Performed By: #### P T ####[facility] Gkortcxikl7[address] [place], [place] [address]DrWesley Emelina Ramon BNPon 06-15-2022 Natriuretic peptide B (Bld) [Mass/Vol] 4304.0 pg/mL Critically high <=900.0 [facility] Comment on above: Performed By: #### B BLOOD BANK ASSISTANT ####[facility] Oxbxzvuhci[address] [place], [place] [address]Dr. Emelnia Ramon CBC AUTO DIFFon 06-15-2022 BASO # 0.0 103/ul Normal 0.0-0.1 [facility] Comment on above: Performed By: #### C BC ####[facility] Paoispqugf[address] [place], [place] [address]Dr. Emelina Navarro Basophils/100 WBC (Bld) 0.1 % Critically low 0.2-2.0 [facility] Comment on above: Performed By: #### C BC ####[facility] Yknxzmxcop[address] [place], [place] [address]Dr. Emelina Navarro EO # 0.0 103/ul Normal 0.0-0.7 [facility] Comment on above: Performed By: #### C BC ####[facility] Jmqfvhwroq[address] [place], [place] [address]Dr. Emelina Navarro Eosinophils/100 WBC (Bld) 0.1 % Critically low 0.9-7.0 [facility] Comment on above: Performed By: #### C BC ####[facility] D[address]monatad[address] [place] [address]Dr. Emelina Navarro Erythrocyte distribution width (RBC) [Ratio] 17.1 % Critically high 11.0-15.0 [facility] Comment on above: Performed By: #### C BC ####[facility] Nukknudhhj[address] [place] [address]Dr. Emelina Navarro Hematocrit (Bld) [Volume fraction] 40.9 % Critically low 42.0-54.0 [facility] Comment on above: Performed By: #### C BC ####[facility] Pnnbfsvfor0[address] [place], [place] [address]Dr. Awildanitza Navarro Hemoglobin (Bld) [Mass/Vol] 13.4 g/dL Critically low 14.0-18.0 [facility] Comment on above: Performed By: #### C BC ####[facility] Bmplkdqwgt[address] [place], [place] [address]Dr. Emelina Navarro IG # 0.17 10e3/ul Critically high 0.00-0.03 [facility] Comment on above: Performed By: #### C BC ####[facility] Tthvgbnbnc[address] [place], [place] [address]Dr. Awildanitza Navarro IG % 0.8 % Critically high 0.0-0.5 [facility] Comment on above: Performed By: #### C BC ####[facility] Hmdeefwhgz[address] [place], [place] [address]Dr. Emelina Navarro LYMPH # 1.4 103/ul Normal 1.2-3.8 [facility] Comment on above: Performed By: #### C BC ####[facility] Fdoyewwauo[address] [place], [place] [address]Dr. Emelina Navarro Lymphocytes/100 WBC (Bld) 6.8 % Critically low 20.5-60.0 [facility] Comment on above: Performed By: #### C BC ####[facility] Mwaatpbecu[address] [place], [place] [address]Dr. Awildanitza Navarro MANUAL DIFF REQ NO Normal [facility] Comment on above: Performed By: #### C BC ####[facility] Bv[address]zkqcmi[address] [place] [id number]. Emelina Navarro MCH (RBC) [Entitic mass] 28.6 pg Normal 25.9-34.0 [facility] Comment on above: Performed By: #### C BC ####[facility] T[address]rmohfjg37[address] [place] [address]Dr. Emelina Navarro MCHC (RBC) [Mass/Vol] 32.8 g/dL Normal 29.9-35.2 [facility] Comment on above: Performed By: #### C BC ####[facility] Cqhwljjynt[address] [place], [place] [address]Dr. Emelina Navarro MCV (RBC) [Entitic vol] 87.2 fL Normal 80.0-94.0 [facility] Comment on above: Performed By: #### C BC ####[facility] Fmygwzzgae[address] [place], [place] [address]Dr. Emelina Navarro MONO # 0.8 103/ul Normal 0.3-0.8 [facility] Comment on above: Performed By: #### C BC ####[facility] Dzwaukczsb[address] [place], [place] [address]Dr. Emelina Navarro Monocytes/100 WBC (Bld) 3.8 % Normal 1.7-12.0 [facility] Comment on above: Performed By: #### C BC ####[facility] Waoznxkwpc[address] [place], [place] [id number]. Emelina Navarro NEUT # 17.9 103/ul Critically high 1.4-6.[address] [facility] Comment on above: Performed By: #### C BC ####[facility] Dozuvudmuh[address] [place], [place] [address]Dr. Emelina Navarro Neutrophils/100 WBC (Bld) 88.4 % Critically high 43.0-75.0 [facility] Comment on above: Performed By: #### C BC ####[facility] Swphkdyhtd[address] [place], [place] [address]Dr. Emelina Navarro Platelet mean volume (Bld) [Entitic vol] 9.7 fL Normal 9.5-13.5 [facility] Comment on above: Performed By: #### C BC ####[facility] [address]hw[address]ttvvsg[address] [place] [phone]. Emelina Navarro PLT 211 103/ul Normal 150-450 [facility] Comment on above: Performed By: #### C BC ####[facility] Dzzopcxjta[address] [place] [phone]. Emelina Navarro RBC 4.69 106/ul Critically low 4.70-6.10 [facility] Comment on above: Performed By: #### C BC ####[facility] Rdokthgkhe6399 [place] [phone]. Emelina Navarro WBC 20.2 103/ul Critically high 4.0-11.0 [facility] Comment on above: Performed By: #### C BC ####[facility] Yrzhqvmjzy[address] [place] [address]Dr. Emelina Navarro PROF 14(COMP METB)on 022 Albumin [Mass/Vol] 2.9 g/dL Critically low 3.4-5.0 [facility] Comment on above: Performed By: #### C MP ####[facility] Axf[address]fhrgv[address] [place] [address]Dr. Emelina Navarro Albumin/Globulin [Mass ratio] 0.7 {ratio} Normal [facility] Comment on above: Performed By: #### C MP ####[facility] [address]jx[address] [place] [address]Dr. Emelina Navarro ALP [Catalytic activity/Vol] 77 U/L Normal 46-116 [facility] Comment on above: Performed By: #### C MP ####[facility] Ujpearzyrl[address] [place] [phone]. Emelina Navarro ALT [Catalytic activity/Vol] 26 U/L Normal 16-63 [facility] Comment on above: Performed By: #### C MP ####[facility] Mkmwxsddlp34[address] [place] [address]Dr. Emelina Navarro Anion gap [Moles/Vol] 13.2 mmol/L Normal [facility] Comment on above: Performed By: #### C MP ####[facility] Izmdjqldvn2943 [place], [place] [address]Md. Emelina Navarro AST [Catalytic activity/Vol] 18 U/L Normal 15-37 [facility] Comment on above: Performed By: #### C MP ####[facility] Vctkgdmuag5320 [place], [place] [address]Ku. Emelina Navarro Bilirubin [Mass/Vol] 0.8 mg/dL Normal 0.2-1.0 [facility] Comment on above: Performed By: #### C MP ####[facility] Tknyhgjdmd99[address] [place] [phone]. Emelina Navarro Calcium [Mass/Vol] 8.4 mg/dL Critically low 8.5-10.1 [facility] Comment on above: Performed By: #### C MP ####[facility] Dzlnwinuhg5[address] [place] [phone]. Emelina Navarro Chloride [Moles/Vol] 101 mmol/L Normal 98-107 [facility] Comment on above: Performed By: #### C MP ####[facility] Zihzjhcyqf[address] [place] [phone]. Emelina Navarro CO2 [Moles/Vol] 27.9 mmol/L Normal 21.0-32.[address] [facility] Comment on above: Performed By: #### C MP ####[facility] Eyscftqpbn28[address] [place] [phone]. Emelina Navarro Creatinine [Mass/Vol] 1.90 mg/dL Critically high 0.70-1.30 [facility] Comment on above: Performed By: #### C MP ####[facility] Ujvuksacgi[address] [place] [phone]. Emelina Navarro EGFR-AF GRENADIAN 43 mL/min/1.73m2 Critically low >=60 [facility] Comment on above: Performed By: #### C MP ####[facility] Flsiqapdno30[address] [place] [phone]. Emelina Navarro EGFR-NON AF GRENADIAN 36 mL/min/1.73m2 Critically low >=60 [facility] Comment on above: Performed By: #### C MP ####[facility] Vjqicpntls7[address] [place] [phone]. Emelina Navarro Globulin (S) [Mass/Vol] 3.9 g/dL Normal [facility] Comment on above: Performed By: #### C MP ####[facility] [address]xuv[address]pmfry[address] [place] [address]Dr. Emelina Navarro Glucose [Mass/Vol] 175 mg/dL Critically high 74-106 [facility] Comment on above: Performed By: #### C MP ####[facility] [address]yqbagmi[address] [place] [address]Dr. Emelina Navarro Potassium [Moles/Vol] 4.1 mmol/L Normal 3.5-5.1 [facility] Comment on above: Performed By: #### C MP ####[facility] Zaejvgkmdn[address] [place], [place] [address]Dr. Emelina Navarro Protein [Mass/Vol] 6.8 g/dL Normal 6.4-8.2 [facility] Comment on above: Performed By: #### C MP ####[facility] [address]fqfgfafnw40[address] [place] [address]Dr. Emelina Navarro Sodium [Moles/Vol] 138 mmol/L Normal 136-145 [facility] Comment on above: Performed By: #### C MP ####[facility] Oth[address]whocly[address] [place] [address]Dr. Emelina Navarro Urea nitrogen [Mass/Vol] 46.0 mg/dL Critically high 7.0-18.0 [facility] Comment on above: Performed By: #### C MP ####[facility] Ctr[address]jpqbfj2[address] [place] [address]Dr. Emelina Navarro Urea nitrogen/Creatinine [Mass ratio] 24.2 mg/mg Normal [facility] Comment on above: Performed By: #### C MP ####[facility] By[address]hengdlv[address] [place] [address]Dr. Emelina Navarro PROTIMEon 06-15-2022 INR Coag (PPP) [Relative time] 3.34 {INR} Normal [facility] Comment on above: Performed By: #### P T ####[facility] [address]ldylrzap[address] [place] [address]Dr. Emelina Navarro INR GUIDELINES SEE BELOW Normal [facility] Comment on above: Result Comment: WENDY RED INR: 2.0 - 3.0 CONDITIONS NOT LISTED BELOW 2.5 - 3.5 FOR PROSTHETIC HEART VALVE REPLACEMENT 2.5 - 3.5 RECURRENT THROMBOSIS Performed By: #### P T ####[facility] Qhrneudahj[address] [place], [place] [address]Dr. Emelina Navarro PT Coag (PPP) [Time] 33.3 s Critically high 9.0-11.6 [facility] Comment on above: Performed By: #### P T ####[facility] Abfephmgms[address] [place], [place] [address]Dr. Emelina Navarro CBC AUTO DIFFon 06-14-2022 BASO # 0.0 103/ul Normal 0.0-0.1 [facility] Comment on above: Performed By: #### C BC ####[facility] Buqdiboyej[address] [place], [place] [address]Dr. Emelina Navarro Basophils/100 WBC (Bld) 0.1 % Critically low 0.2-2.0 [facility] Comment on above: Performed By: #### C BC ####[facility] Cfcyaqyvdu15[address] [place], [place] [address]Dr. Emelina Navarro EO # 0.0 103/ul Normal 0.0-0.7 [facility] Comment on above: Performed By: #### C BC ####[facility] Jrmkuptlkx65[address] [place], [place] [address]Dr. Emelina Navarro Eosinophils/100 WBC (Bld) 0.0 % Critically low 0.9-7.0 [facility] Comment on above: Performed By: #### C BC ####[facility] Wijhxtcrqi[address] [place], [place] [address]Dr. Emelina Navarro Erythrocyte distribution width (RBC) [Ratio] 17.0 % Critically high 11.0-15.0 [facility] Comment on above: Performed By: #### C BC ####[facility] Bvwpsvzikb[address] [place], [place] [id number]. Awildanitza Navarro Hematocrit (Bld) [Volume fraction] 40.2 % Critically low 42.0-54.0 [facility] Comment on above: Performed By: #### C BC ####[facility] [address]up[address] [place] [address]Dr. Emelina Navarro Hemoglobin (Bld) [Mass/Vol] 13.0 g/dL Critically low 14.0-18.0 [facility] Comment on above: Performed By: #### C BC ####[facility] Elcrmjgjmj[address] [place] [address]Dr. Emelina Navarro IG # 0.18 10e3/ul Critically high 0.00-0.03 [facility] Comment on above: Performed By: #### C BC ####[facility] Plafsmqagw[address] [place] [address]Dr. Emelina Navarro IG % 0.8 % Critically high 0.0-0.5 [facility] Comment on above: Performed By: #### C BC ####[facility] Taxmvlxpvg[address] [place] [address]Dr. Emelina Navarro LYMPH # 1.1 103/ul Critically low 1.2-3.8 [facility] Comment on above: Performed By: #### C BC ####[facility] Vbcstsflvs350[address] [place] [address]Dr. Emelina Navarro Lymphocytes/100 WBC (Bld) 5.4 % Critically low 20.5-60.0 [facility] Comment on above: Performed By: #### C BC ####[facility] Peccjqtuno[address] [place] [address]Dr. Emelina Navarro MANUAL DIFF REQ NO Normal [facility] Comment on above: Performed By: #### C BC ####[facility] Rcquusihde07[address] [place], [place] [address]Dr. Emelina Navarro MCH (RBC) [Entitic mass] 28.4 pg Normal 25.9-34.0 [facility] Comment on above: Performed By: #### C BC ####[facility] Sprswydnki68[address] [place], [place] [id number]. Emelina Navarro MCHC (RBC) [Mass/Vol] 32.3 g/dL Normal 29.9-35.2 [facility] Comment on above: Performed By: #### C BC ####[facility] V[address]uquhru[address] [place] [phone]. Emelina Navarro MCV (RBC) [Entitic vol] 88.0 fL Normal 80.0-94.0 [facility] Comment on above: Performed By: #### C BC ####[facility] Texvcutpqw95[address] [place] [phone]. Emelina Navarro MONO # 0.6 103/ul Normal 0.3-0.8 [facility] Comment on above: Performed By: #### C BC ####[facility] Cvafvxhyii26[address] [place] [address]Dr. Emelina Ramon Monocytes/100 WBC (Bld) 3.0 % Normal 1.7-12.0 [facility] Comment on above: Performed By: #### C BC ####[facility] Btllgrqzvs7[address] [place] [phone]. Emelina Navarro NEUT # 19.3 103/ul Critically high 1.4-6.[address] [facility] Comment on above: Performed By: #### C BC ####[facility] Qtwhyzzsjq4741 [place] [phone]. Emelina Navarro Neutrophils/100 WBC (Bld) 90.7 % Critically high 43.0-75.0 [facility] Comment on above: Performed By: #### C BC ####[facility] Whiydeytuo1104 [place] [phone]. Emelina Navarro Platelet mean volume (Bld) [Entitic vol] 10.6 fL Normal 9.5-13.5 [facility] Comment on above: Performed By: #### C BC ####[facility] Uheepymuyy75[address] [place] [phone]. Emelina Ramon PLT 191 103/ul Normal 150-450 [facility] Comment on above: Performed By: #### C BC ####[facility] Xogmrfisgj7648 [place] [address]Dr. Emelina Navarro RBC 4.57 106/ul Critically low 4.70-6.10 [facility] Comment on above: Performed By: #### C BC ####[facility] Exyeeffhpe27[address] [place] [address]Dr. Emelina Navarro WBC 21.3 103/ul Critically high 4.0-11.0 [facility] Comment on above: Performed By: #### C BC ####[facility] Azhqqlnarn9932[address] [place], [place] [address]Dr. Emelina Navarro PROF 14(COMP METB)on 022 Albumin [Mass/Vol] 2.5 g/dL Critically low 3.4-5.0 [facility] Comment on above: Performed By: #### C MP ####[facility] Whdvexytnz103[address] [place], [place] [address]Dr. Emelina Navarro Albumin/Globulin [Mass ratio] 0.6 {ratio} Normal [facility] Comment on above: Performed By: #### C MP ####[facility] Kftnxiushb325[address] [place], [place] [address]Dr. Emelina Navarro ALP [Catalytic activity/Vol] 77 U/L Normal 46-116 [facility] Comment on above: Performed By: #### C MP ####[facility] Fayaoaqaao05[address] [place], [place] [address]Dr. Emelina Navarro ALT [Catalytic activity/Vol] 25 U/L Normal 16-63 [facility] Comment on above: Performed By: #### C MP ####[facility] Qhmoieuyyk32[address] [place], [place] [address]Dr. Emelina Navarro Anion gap [Moles/Vol] 12.5 mmol/L Normal [facility] Comment on above: Performed By: #### C MP ####[facility] Sxrndehykc705[address] [place], [place] [address]Dr. Emelina Navarro AST [Catalytic activity/Vol] 34 U/L Normal 15-37 [facility] Comment on above: Performed By: #### C MP ####[facility] Azlsutfvhx4578[address] [place], [place] [address]Dr. Emelina Navarro Bilirubin [Mass/Vol] 0.9 mg/dL Normal 0.2-1.0 [facility] Comment on above: Performed By: #### C MP ####[facility] Mtrxdibdjb0377[address] [place], [place] [address]Dr. Emelina Navarro Calcium [Mass/Vol] 8.1 mg/dL Critically low 8.5-10.1 [facility] Comment on above: Performed By: #### C MP ####[facility] Lhintczkyb9260[address] [place], [place] [address]Dr. Emelina Navarro Chloride [Moles/Vol] 101 mmol/L Normal 98-107 [facility] Comment on above: Performed By: #### C MP ####[facility] Biilxietvg4600[address] [place], [place] [address]Dr. Emelina Navarro CO2 [Moles/Vol] 24.8 mmol/L Normal 21.0-32.[address] [facility] Comment on above: Performed By: #### C MP ####[facility] Tpztpliwjv7[address] [place], [place] [address]Dr. Emelina Navarro Creatinine [Mass/Vol] 1.93 mg/dL Critically high 0.70-1.30 [facility] Comment on above: Performed By: #### C MP ####[facility] Yruxgckbeu[address]364[address] [place], [place] [address]Dr. Emelina Navarro EGFR-AF GRENADIAN 42 mL/min/1.73m2 Critically low >=60 [facility] Comment on above: Performed By: #### C MP ####[facility] Hdiysfhvch[address] [place], [place] [address]Dr. Emelina Ramon EGFR-NON AF GRENADIAN 35 mL/min/1.73m2 Critically low >=60 [facility] Comment on above: Performed By: #### C MP ####[facility] Oktepkunyn017[address] [place], [place] [address]Dr. Emelina Ramon Globulin (S) [Mass/Vol] 3.9 g/dL Normal [facility] Comment on above: Performed By: #### C MP ####[facility] Auoxtuqqcz38[address] [place] [address]Dr. Emelina Navarro Glucose [Mass/Vol] 236 mg/dL Critically high 74-106 T [facility] Comment on above: Performed By: #### C MP ####[facility] Sifxkwcmyf8104 [place] [address]Dr. Awildanitza Ramon Potassium [Moles/Vol] 5.3 mmol/L Critically high 3.5-5.1 [facility] Comment on above: Performed By: #### C MP ####[facility] Orizsxskiw14[address] [place] [address]Dr. Awildanitza Navarro Protein [Mass/Vol] 6.4 g/dL Normal 6.4-8.2 [facility] Comment on above: Performed By: #### C MP ####[facility] Exolxcsrng[address] [place], [place] [address]Dr. Emelina Navarro Sodium [Moles/Vol] 133 mmol/L Critically low 136-145 Th [facility] Comment on above: Performed By: #### C MP ####[facility] Whpknetobj7[address] [place], [place] [address]Dr. Emelina Navarro Urea nitrogen [Mass/Vol] 43.0 mg/dL Critically high 7.0-18.0 [facility] Comment on above: Performed By: #### C MP ####[facility] Krbjvwxmdn[address] [place], [place] [address]Dr. Emelina Navarro Urea nitrogen/Creatinine [Mass ratio] 22.3 mg/mg Normal [facility] Comment on above: Performed By: #### C MP ####[facility] Glovdnylcm87[address] [place] [address]Dr. Emelina Navarro PROTIMEon 06-14-2022 INR Coag (PPP) [Relative time] 4.39 {INR} Critically high [facility] Comment on above: Performed By: #### P T ####[facility] Wfoduuhybh86[address] [place], [place] [address]Dr. Emelina Navarro INR GUIDELINES SEE BELOW Normal [facility] Comment on above: Result Comment: WENDY RED INR: 2.0 - 3.0 CONDITIONS NOT LISTED BELOW 2.5 - 3.5 FOR PROSTHETIC HEART VALVE REPLACEMENT 2.5 - 3.5 RECURRENT THROMBOSIS Performed By: #### P T ####[facility] Ntgxqasyua294[address] [place], [place] [address]Dr. Emelina Navarro PT Coag (PPP) [Time] 43.0 s Critically high 9.0-11.6 [facility] Comment on above: Performed By: #### P T ####[facility] Quvridwsdu3117[address] [place], [place] [address]Dr. Emelina Navarro XR CHEST 1 Von 06-14-2022 XR CHEST 1 V Normal [facility] BNPon 06-13-2022 Natriuretic peptide B (Bld) [Mass/Vol] 9889.0 pg/mL Critically high <=900.0 [facility] Comment on above: Performed By: #### B MP, BNP ####[facility] Yhmlnkvgxc409[address] [place], [place] [address]Dr. Emelina Navarro CBC AUTO DIFFon 06-13-2022 BASO # 0.0 103/ul Normal 0.0-0.1 [facility] Comment on above: Performed By: #### C BC ####[facility] Jwtkkpkpvz199[address] [place], [place] [address]Dr. Emelina Navarro Basophils/100 WBC (Bld) 0.1 % Critically low 0.2-2.0 [facility] Comment on above: Performed By: #### C BC ####[facility] Ijvyffengn[address] [place], [place] [address]Dr. Emelina Navarro EO # 0.0 103/ul Normal 0.0-0.7 [facility] Comment on above: Performed By: #### C BC ####[facility] Psadggacmr24[address] [place], [place] [address]Dr. Emelina Navarro Eosinophils/100 WBC (Bld) 0.0 % Critically low 0.9-7.0 [facility] Comment on above: Performed By: #### C BC ####[facility] Fldematwpl64[address] [place], [place] [address]DrWesley Navarro Erythrocyte distribution width (RBC) [Ratio] 17.4 % Critically high 11.0-15.0 [facility] Comment on above: Performed By: #### C BC ####[facility] Fqxkarlyvs7384 [place] [address]Dr. Emelina Navarro Hematocrit (Bld) [Volume fraction] 43.5 % Normal 42.0-54.0 [facility] Comment on above: Performed By: #### C BC ####[facility] Femyqpbfly7912 [place] [address]Dr. Emelina Navarro Hemoglobin (Bld) [Mass/Vol] 14.1 g/dL Normal 14.0-18.0 [facility] Comment on above: Performed By: #### C BC ####[facility] Igmexuvlpp872[address] [place], [place] [address]Dr. Emelina Navarro IG # 0.15 10e3/ul Critically high 0.00-0.03 [facility] Comment on above: Performed By: #### C BC ####[facility] Mnjenwzrou3959[address] [place], [place] [address]Dr. Emelina Navarro IG % 0.8 % Critically high 0.0-0.5 [facility] Comment on above: Performed By: #### C BC ####[facility] Akgwdttmwx799[address] [place], [place] [address]DrWesley Navarro LYMPH # 0.9 103/ul Critically low 1.2-3.8 [facility] Comment on above: Performed By: #### C BC ####[facility] Sskalkvysq6825[address] [place], [place] [address]DrWesley Navarro Lymphocytes/100 WBC (Bld) 5.0 % Critically low 20.5-60.0 [facility] Comment on above: Performed By: #### C BC ####[facility] Jxswmqrwme1508[address] [place], [place] [address]DrWesley Navarro MANUAL DIFF REQ NO Normal [facility] Comment on above: Performed By: #### C BC ####[facility] Gksdnonpyl[address] [place] [address]Dr. Emelina Navarro MCH (RBC) [Entitic mass] 28.8 pg Normal 25.9-34.0 [facility] Comment on above: Performed By: #### C BC ####[facility] Ukbmtehirn2647 [place] [address]DrWesley Navarro MCHC (RBC) [Mass/Vol] 32.4 g/dL Normal 29.9-35.2 [facility] Comment on above: Performed By: #### C BC ####[facility] Wvodnvhmam3799 [place] [address]DrWesley Navarro MCV (RBC) [Entitic vol] 89.0 fL Normal 80.0-94.0 [facility] Comment on above: Performed By: #### C BC ####[facility] Pwonwvrphm8103 [place] [address]DrWesley Navarro MONO # 0.1 103/ul Critically low 0.3-0.8 [facility] Comment on above: Performed By: #### C BC ####[facility] Trnmrlhkvw44[address] [place], [place] [address]DrWesley Navarro Monocytes/100 WBC (Bld) 0.5 % Critically low 1.7-12.0 [facility] Comment on above: Performed By: #### C BC ####[facility] Gkyisqoidg2110[address] [place], [place] [address]DrWesley Navarro NEUT # 17.4 103/ul Critically high 1.4-6.[address] [facility] Comment on above: Performed By: #### C BC ####[facility] Huxizzzkxo917[address] [place], [place] [address]DrWesley Navarro Neutrophils/100 WBC (Bld) 93.6 % Critically high 43.0-75.0 [facility] Comment on above: Performed By: #### C BC ####[facility] Lyspqhgbef9[address] [place], [place] [address]DrWesley Navarro Platelet mean volume (Bld) [Entitic vol] 9.8 fL Normal 9.5-13.5 [facility] Comment on above: Performed By: #### C BC ####[facility] Bvmlogfryn3[address] [place], [place] [address]DrWesley Navarro PLT 186 103/ul Normal 150-450 [facility] Comment on above: Performed By: #### C BC ####[facility] Pdhujjllgv0847 [place] [phone]. Emelina Navarro RBC 4.89 106/ul Normal 4.70-6.10 [facility] Comment on above: Performed By: #### C BC ####[facility] Bootkmovyj9722 [place] [phone]. Awildanitza Ramon WBC 18.6 103/ul Critically high 4.0-11.0 [facility] Comment on above: Performed By: #### C BC ####[facility] Efezjdxjxi82[address] [place] [phone]. Awildanitza Ramon CT CHEST WO CONon 06-13-2022 CT CHEST WO CON Normal [facility] CULTURE SPUTUMon 06-13-2022 CULTURE SPUTUM Culture Observations : NORMAL RESPIRATORY CEDRIC. Normal [facility] Comment on above: Performed By: #### S PUTCX ####[facility] Aixgezwcbr[address] [place] [address]Dr. Awildanitza Ramon ECHOCARDIO M/2D COMPLETEon 0 06-13-2022 ECHOCARDIO M/2D COMPLETE Normal [facility] POINT OF CARE GLUCOSEon -2 Glucose [Mass/Vol] 255 mg/dL Critically high 74-106 [facility] Comment on above: Performed By: #### P OCGLUC ####[facility] Yxmwvsjhaq2238 [place] [address]Dr. Emelina Navarro Glucose [Mass/Vol] 408 mg/dL Critically high 74-106 [facility] Comment on above: Performed By: #### P OCGLUC ####[facility] Qjazcplhnn8608 [place] [phone]. Emelina Navarro PROF CHEM 8 (BAS METB)on Anion gap [Moles/Vol] 14.7 mmol/L Normal [facility] Comment on above: Performed By: #### B MP, BNP ####[facility] Xefdsmmrgp5886 [place] [address]Dr. Emelina Navarro Calcium [Mass/Vol] 8.3 mg/dL Critically low 8.5-10.1 Th [facility] Comment on above: Performed By: #### B MP, BNP ####[facility] Zirptgbola[address] [place], [place] [address]Dr. Emelina Navarro Chloride [Moles/Vol] 102 mmol/L Normal 98-107 [facility] Comment on above: Performed By: #### B MP, BNP ####[facility] Wvrpwxtoio536[address] [place], [place] [address]Dr. Emelina Navarro CO2 [Moles/Vol] 26.0 mmol/L Normal 21.0-32.[address] [facility] Comment on above: Performed By: #### B MP, BNP ####[facility] Wborquszeo[address] [place], [place] [address]Dr. Emelina Navarro Creatinine [Mass/Vol] 2.07 mg/dL Critically high 0.70-1.30 [facility] Comment on above: Performed By: #### B MP, BNP ####[facility] Vopowlmqjn5523[address] [place], [place] [address]Dr. Emelina Navarro EGFR-AF GRENADIAN 39 mL/min/1.73m2 Critically low >=60 [facility] Comment on above: Performed By: #### B MP, BNP ####[facility] Phstkivyik924[address] [place], [place] [address]Dr. Emelina Navarro EGFR-NON AF GRENADIAN 32 mL/min/1.73m2 Critically low >=60 [facility] Comment on above: Performed By: #### B MP, BNP ####[facility] Zutqfsoomi8087[address] [place], [place] [address]Dr. Emelina Navarro Glucose [Mass/Vol] 245 mg/dL Critically high 74-106 [facility] Comment on above: Performed By: #### B MP, BNP ####[facility] Aiwcpujsru742[address] [place], [place] [address]Dr. Awildanitza Navarro Potassium [Moles/Vol] 4.7 mmol/L Normal 3.5-5.1 [facility] Comment on above: Performed By: #### B MP, BNP ####[facility] Piahawylme4[address] [place] [address]Dr. Emelina Navarro Sodium [Moles/Vol] 138 mmol/L Normal 136-145 [facility] Comment on above: Performed By: #### B MP, BNP ####[facility] Bqrusiolrd018[address] [place], [place] [address]Dr. Emelina Navarro Urea nitrogen [Mass/Vol] 30.0 mg/dL Critically high 7.0-18.0 [facility] Comment on above: Performed By: #### B MP, BNP ####[facility] Uxqmpffwym514[address] [place], [place] [address]Dr. Emelina Navarro Urea nitrogen/Creatinine [Mass ratio] 14.5 mg/mg Normal [facility] Comment on above: Performed By: #### B MP, BNP ####[facility] Ifmrzlubye2510[address] [place], [place] [address]Dr. Emelina Navarro PROTIMEon 06-13-2022 INR Coag (PPP) [Relative time] 3.59 {INR} Normal [facility] Comment on above: Performed By: #### P T ####[facility] Orefpxeuay804[address] [place], [place] [address]Dr. Emelina Navarro INR GUIDELINES SEE BELOW Normal [facility] Comment on above: Result Comment: WENDY RED INR: 2.0 - 3.0 CONDITIONS NOT LISTED BELOW 2.5 - 3.5 FOR PROSTHETIC HEART VALVE REPLACEMENT 2.5 - 3.5 RECURRENT THROMBOSIS Performed By: #### P T ####[facility] Cmqbmjckfc[address] [place], [place] [address]Dr. Emelina Navarro PT Coag (PPP) [Time] 35.7 s Critically high 9.0-11.6 [facility] Comment on above: Performed By: #### P T ####[facility] Tmzwgmvhzk7607[address] [place], [place] [address]Dr. Emelina Navarro SPUTUM GRAM STAINon 06-13-20 COMMENTS Normal [facility] Comment on above: Performed By: #### S PUTGS ####[facility] Ompsrhbkqe7[address] [place], [place] [address]DrWesley Navarro DIPHTHEROIDS Normal [facility] Comment on above: Performed By: #### S PUTGS ####[facility] Tzacmzkqhy37[address] [place] [address]Dr. Emelina Navarro EPITHELIALS <25 Normal [facility] Comment on above: Performed By: #### S PUTGS ####[facility] Kjvbnmdhtw7342 [place] [address]Dr. mEelina Navarro FUNGAL ELEMENTS Normal [facility] Comment on above: Performed By: #### S PUTGS ####[facility] Ydnarjfegz[address] [place], [place] [address]Dr. Emelina Navarro GRAM NEG BACILLI Normal [facility] Comment on above: Performed By: #### S PUTGS ####[facility] Tcmlelioko5524[address] [place], [place] [address]Dr. Emelina Navarro GRAM NEG DIPPLOCOCCI Normal [facility] Comment on above: Performed By: #### S PUTGS ####[facility] Avkcgaghdo8538[address] [place], [place] [address]Dr. Emelina Navarro GRAM POS BACILLI Normal [facility] Comment on above: Performed By: #### S PUTGS ####[facility] Zpwhjndyso1364[address] [place], [place] [address]Dr. Emelina Navarro GRAM POSITIVE COCCI RARE Normal [facility] Comment on above: Performed By: #### S PUTGS ####[facility] Qvdxjxkjvo6829[address] [place], [place] [address]Dr. Emelina Navarro WBC (Bld) [#/Vol] 10*3/uL Normal [facility] Comment on above: Performed By: #### S PUTGS ####[facility] Asjqkhorji850[address] [place], [place] [address]Dr. Emelina Navarro XR CHEST 1 Von 06-13-2022 XR CHEST 1 V Normal [facility] BNPon 06-12-2022 Natriuretic peptide B (Bld) [Mass/Vol] 6268.0 pg/mL Critically high <=900.0 [facility] Comment on above: Performed By: #### B BLOOD BANK ASSISTANT, CMP ####[facility] Qynqdfmxli94[address] [place], [place] [address]Dr. Emelina Navarro CBC AUTO DIFFon 06-12-2022 BASO # 0.1 103/ul Normal 0.0-0.1 [facility] Comment on above: Performed By: #### C BC ####[facility] Buqvoyenin7[address] [place] [address]Dr. Emelina Navarro Basophils/100 WBC (Bld) 0.3 % Normal 0.2-2.0 [facility] Comment on above: Performed By: #### C BC ####[facility] Ljhgvilpwz500[address] [place], [place] [address]Dr. Emelina Navarro EO # 0.1 103/ul Normal 0.0-0.7 [facility] Comment on above: Performed By: #### C BC ####[facility] Dhjdoflnbu[address] [place], [place] [address]Dr. Emelina Navarro Eosinophils/100 WBC (Bld) 0.4 % Critically low 0.9-7.0 [facility] Comment on above: Performed By: #### C BC ####[facility] Vjehwwsigl3[address] [place], [place] [address]Dr. Emelina Navarro Erythrocyte distribution width (RBC) [Ratio] 17.7 % Critically high 11.0-15.0 [facility] Comment on above: Performed By: #### C BC ####[facility] Pqrzzquhvq9[address] [place], [place] [address]Dr. Emelina Navarro Hematocrit (Bld) [Volume fraction] 44.4 % Normal 42.0-54.0 [facility] Comment on above: Performed By: #### C BC ####[facility] Cvrgoudscz[address] [place], [place] [address]Dr. Emelina Navarro Hemoglobin (Bld) [Mass/Vol] 14.3 g/dL Normal 14.0-18.0 [facility] Comment on above: Performed By: #### C BC ####[facility] Umegelwueh0[address] [place], [place] [address]Dr. Emelina Navarro IG # 0.11 10e3/ul Critically high 0.00-0.03 [facility] Comment on above: Performed By: #### C BC ####[facility] Yrppjzcvlz56[address] [place] [id number]. Awildanitza Navarro IG % 0.5 % Normal 0.0-0.5 [facility] Comment on above: Performed By: #### C BC ####[facility] Pfvesfwtzz[address] [place] [address]Dr. Awildanitza Ramon LYMPH # 1.7 103/ul Normal 1.2-3.8 [facility] Comment on above: Performed By: #### C BC ####[facility] Ktxeaqnopi7[address] [place] [address]Dr. Awildanitza Navarro Lymphocytes/100 WBC (Bld) 8.4 % Critically low 20.5-60.0 [facility] Comment on above: Performed By: #### C BC ####[facility] [address] [place] [address]Dr. Emelina Navarro MANUAL DIFF REQ NO Normal [facility] Comment on above: Performed By: #### C BC ####[facility] [address] [place] [address]Dr. Emelina Ramon MCH (RBC) [Entitic mass] 28.3 pg Normal 25.9-34.0 [facility] Comment on above: Performed By: #### C BC ####[facility] Terwlqzzbb[address] [place], [place] [address]Dr. Emelina Navarro MCHC (RBC) [Mass/Vol] 32.2 g/dL Normal 29.9-35.2 [facility] Comment on above: Performed By: #### C BC ####[facility] Rruflxuhgz[address] [place], [place] [address]Dr. Emelina Navarro MCV (RBC) [Entitic vol] 87.9 fL Normal 80.0-94.0 [facility] Comment on above: Performed By: #### C BC ####[facility] Lvepjedqmh47[address] [place], [place] [address]Dr. Emelina Navarro MONO # 1.4 103/ul Critically high 0.3-0.8 [facility] Comment on above: Performed By: #### C BC ####[facility] Qk[address]oheypw[address] [place] [address]Dr. Emelina Navarro Monocytes/100 WBC (Bld) 7.1 % Normal 1.7-12.0 [facility] Comment on above: Performed By: #### C BC ####[facility] Ecvflmjyef[address] [place] [address]Dr. Emelina Navarro NEUT # 16.8 103/ul Critically high 1.4-6.[address] [facility] Comment on above: Performed By: #### C BC ####[facility] Fuyzjdrkdg[address] [place] [address]Dr. Emelina Navarro Neutrophils/100 WBC (Bld) 83.3 % Critically high 43.0-75.0 [facility] Comment on above: Performed By: #### C BC ####[facility] Cgrpnwjgsb[address] [place] [address]Dr. Emelina Navarro Platelet mean volume (Bld) [Entitic vol] 10.0 fL Normal 9.5-13.5 [facility] Comment on above: Performed By: #### C BC ####[facility] Nzijhguers[address] [place], [place] [address]Dr. Emelina Navarro PLT 227 103/ul Normal 150-450 [facility] Comment on above: Performed By: #### C BC ####[facility] Vydujvdybg[address] [place], [place] [address]Dr. Emelina Navarro RBC 5.05 106/ul Normal 4.70-6.10 [facility] Comment on above: Performed By: #### C BC ####[facility] Nrnlihqnes24[address] [place], [place] [address]Dr. Emelina Navarro WBC 20.2 103/ul Critically high 4.0-11.[address] [facility] Comment on above: Performed By: #### C BC ####[facility] Bdcfsfwmnu1140[address] [place], [place] [address]Dr. Emelina Navarro CULTURE BLOODon 06-12-2022 Microscopic examination of blood, culture Culture Observations: NO GROWTH AT 5 DAYS. Normal [facility] Comment on above: Performed By: #### B LDCX2 ####[facility] Aldadmgvlf[address] [place], [place] [address]Dr. Awildanitza Navarro Microscopic examination of blood, culture Culture Observations: NO GROWTH AT 5 DAYS. Normal [facility] Comment on above: Performed By: #### B LDCX1 ####[facility] Ninoiyrims[address] [place], [place] [address]Dr. Emelina Navarro [facility]20 SARS-CoV-2 (COVID-19) RNA RADHA+probe Ql (Unsp spec) Not detected Normal NOT DETECTED [facility] Comment on above: Result Comment: When [...] for this test is supported by the [place] of Health and Human Service's declaration that [...] be used). Performed By: #### C VDTBH ####[facility] Ckokjdnsss7[address] [place], [place] [address]Dr. Emelina Navarro ER URINE PROFILEon 2 Bilirubin Ql (U) Negative Normal NEGATIVE [facility] Comment on above: Performed By: #### E RUR ####[facility] Ygddikicnw[address] [place], [place] [address]Dr. Emelina Navarro Clarity (U) CLEAR Normal CLEAR [facility] Comment on above: Performed By: #### E RUR ####[facility] Hisdyqebtx364[address] [place], [place] [address]Dr. Emelina Navarro Color (U) YELLOW Normal YELLOW [facility] Comment on above: Performed By: #### E RUR ####[facility] Mbfpylagjf94[address] [place], [place] [address]Dr. Emelina Navarro ERUAHD A micrscopic examina tion will be performed if indicated. Normal [facility] Comment on above: Performed By: #### E RUR ####[facility] Yupsqfccss82[address] [place] [address]Dr. Emelina Navarro Glucose Ql (U) >1000 Abnormal NEGATIVE [facility] Comment on above: Performed By: #### E RUR ####[facility] Xebspksyok94[address] [place], [place] [address]Dr. Emelina Navarro Hemoglobin Ql (U) Negative Normal NEGATIVE [facility] Comment on above: Performed By: #### E RUR ####[facility] Txoxcfcryl9360[address] [place], [place] [address]Dr. Emelina Ramon Ketones Ql (U) Negative Normal NEGATIVE [facility] Comment on above: Performed By: #### E RUR ####[facility] Axseiazxsx150[address] [place], [place] [address]Dr. Emelina Navarro LEUKOCYTES Negative Normal NEGATIVE [facility] Comment on above: Performed By: #### E RUR ####[facility] Sgvmiwycgm[address] [place], [place] [address]Dr. Emelina Navarro Nitrite Ql (U) Negative Normal NEGATIVE [facility] Comment on above: Performed By: #### E RUR ####[facility] Bfmiqhuigd039[address] [place], [place] [address]Dr. Emelina Ramon pH (U) 6.0 [pH] Normal 5-9 [facility] Comment on above: Performed By: #### E RUR ####[facility] Czzuvxhrrk9[address] [place], [place] [address]Dr. Emelina Navarro SPEC GRAVITY 1.010 Normal 1.005-<=1. 025 [facility] Comment on above: Performed By: #### E RUR ####[facility] Kdsrnysbkp00[address] [place], [place] [address]Dr. Emelina Navarro UA PROTEIN Negative Normal NEGATIVE/ TRACE [facility] Comment on above: Performed By: #### E RUR ####[facility] Pisbmvbioe[address] [place] [address]Dr. Emelina Navarro UR MICRO IND NOT INDICATED Normal [facility] Comment on above: Performed By: #### E RUR ####[facility] Hnvygkcaie[address] [place] [address]Dr. Emelina Navarro Urobilinogen Qn (U) 1.0 {Ashley'U}/dL Normal 0.2 - 1. 0 [facility] Comment on above: Performed By: #### E RUR ####[facility] Urxveygplj8[address] [place] [address]Dr. Emelina Navarro LACTATE/LACTIC ACIDon 2021 Lactate [Moles/Vol] 1.2 mmol/L Normal 0.4-1.9 [facility] Comment on above: Performed By: #### L ACT ####[facility] Bkvdlwrtmr88[address] [place], [place] [address]Dr. Emelina Navarro PROF 14(COMP METB)on 022 Albumin [Mass/Vol] 3.4 g/dL Normal 3.4-5.0 [facility] Comment on above: Performed By: #### B BLOOD BANK ASSISTANT, CMP ####[facility] Wpschpdius2812[address] [place], [place] [address]Dr. Emelina Navarro Albumin/Globulin [Mass ratio] 0.8 {ratio} Normal [facility] Comment on above: Performed By: #### B BLOOD BANK ASSISTANT, CMP ####[facility] Ixifrbxxfo189[address] [place], [place] [address]Dr. Emelina Navarro ALP [Catalytic activity/Vol] 100 U/L Normal 46-116 [facility] Comment on above: Performed By: #### B BLOOD BANK ASSISTANT, CMP ####[facility] Ouzoixqmqo73[address] [place], [place] [address]Dr. Emelina Navarro ALT [Catalytic activity/Vol] 26 U/L Normal 16-63 [facility] Comment on above: Performed By: #### B BLOOD BANK ASSISTANT, CMP ####[facility] Eagoruegof[address]23[address] [place], [place] [address]Dr. Emelina Navarro Anion gap [Moles/Vol] 11.3 mmol/L Normal [facility] Comment on above: Performed By: #### B BLOOD BANK ASSISTANT, CMP ####[facility] Tiashiehlp269[address] [place], [place] [address]Dr. Emelina Navarro AST [Catalytic activity/Vol] 19 U/L Normal 15-37 [facility] Comment on above: Performed By: #### B BLOOD BANK ASSISTANT, CMP ####[facility] Swojxoyvos2912[address] [place], [place] [address]Dr. Emelina Navarro Bilirubin [Mass/Vol] 1.4 mg/dL Critically high 0.2-1.0 [facility] Comment on above: Performed By: #### B BLOOD BANK ASSISTANT, CMP ####[facility] Lekhupqdds[address] [place], [place] [address]Dr. Awildanitza Navarro Calcium [Mass/Vol] 9.1 mg/dL Normal 8.5-10.1 [facility] Comment on above: Performed By: #### B BLOOD BANK ASSISTANT, CMP ####[facility] Wmruwrinps87[address] [place], [place] [address]Dr. Awildanitza Navarro Chloride [Moles/Vol] 103 mmol/L Normal 98-107 [facility] Comment on above: Performed By: #### B BLOOD BANK ASSISTANT, CMP ####[facility] Hnjwpurqiz7[address] [place], [place] [address]Dr. Emelina Navarro CO2 [Moles/Vol] 27.8 mmol/L Normal 21.0-32.0 [facility] Comment on above: Performed By: #### B BLOOD BANK ASSISTANT, CMP ####[facility] Cosgakhfxv0301[address] [place], [place] [address]Dr. Awildanitza Ramon Creatinine [Mass/Vol] 1.75 mg/dL Critically high 0.70-1.30 [facility] Comment on above: Performed By: #### B BLOOD BANK ASSISTANT, CMP ####[facility] Treojmgzdq6[address] [place], [place] [address]Dr. Awildanitza Ramon EGFR-AF GRENADIAN 47 mL/min/1.73m2 Critically low >=60 [facility] Comment on above: Performed By: #### B BLOOD BANK ASSISTANT, CMP ####[facility] Qskfurtxpl0710[address] [place], [place] [address]Dr. Emelina Navarro EGFR-NON AF GRENADIAN 39 mL/min/1.73m2 Critically low >=60 [facility] Comment on above: Performed By: #### B BLOOD BANK ASSISTANT, CMP ####[facility] Ojialfnwlf[address] [place] [address]Dr. Emelina Navarro Globulin (S) [Mass/Vol] 4.1 g/dL Normal [facility] Comment on above: Performed By: #### B BLOOD BANK ASSISTANT, CMP ####[facility] Ptvugtvfpk8[address] [place] [address]Dr. Emelina Navarro Glucose [Mass/Vol] 120 mg/dL Critically high 74-106 T [facility] Comment on above: Performed By: #### B BLOOD BANK ASSISTANT, CMP ####[facility] Xduqbwvnsy4318[address] [place], [place] [address]Dr. Emelina Navarro Potassium [Moles/Vol] 4.1 mmol/L Normal 3.5-5.1 [facility] Comment on above: Performed By: #### B BLOOD BANK ASSISTANT, CMP ####[facility] Jhnhrkndia60[address] [place], [place] [address]Dr. Emelina Navarro Protein [Mass/Vol] 7.5 g/dL Normal 6.4-8.2 The [facility] Comment on above: Performed By: #### B BLOOD BANK ASSISTANT, CMP ####[facility] Iaivwtibff032[address] [place], [place] [address]Dr. Emelina Navarro Sodium [Moles/Vol] 138 mmol/L Normal 136-145 [facility] Comment on above: Performed By: #### B BLOOD BANK ASSISTANT, CMP ####[facility] Jykwgqyjro34[address] [place], [place] [address]Dr. Emelina Navarro Urea nitrogen [Mass/Vol] 24.0 mg/dL Critically high 7.0-18.0 [facility] Comment on above: Performed By: #### B BLOOD BANK ASSISTANT, CMP ####[facility] Ibbrjufqsw[address] [place], [place] [address]Dr. Emelina Navarro Urea nitrogen/Creatinine [Mass ratio] 13.7 mg/mg Normal [facility] Comment on above: Performed By: #### B BLOOD BANK ASSISTANT, CMP ####[facility] Bq[address]dwakvw[address] [place] [id number]. Emelina Navarro SPUTUM CULTUREon 05-11-2022 Epithelial cells LM Ql (Urine sed) Few Normal [facility] Comment on above: Performed By: #### C XSPTUM ####[facility] Dbyjhaewov[address] [place] [id number]. Emelina Navarro Gram Stain Evaluation Comment Normal [facility] Comment on above: Result Comment: This specimen is of good quality and is acceptable for routinebacterial culture. Performed By: #### C XSPTUM ####[facility] Gk[address]dvtlkf[address] [place] [address]Dr. Emelina Navarro Lower Respiratory Culture Final report Normal [facility] Comment on above: Performed By: #### C XSPTUM ####[facility] Ujeuleemxh[address] [place], [place] [address]Dr. Emelina Navarro Result 1 Comment Normal [facility] Comment on above: Result Comment: Few gram positive cocci Performed By: #### C XSPTUM ####[facility] Cloxeilyoz[address] [place], [place] [address]Dr. Emelina Navarro Result Comment: Rout ine respiratory cedric Result 2 Normal [facility] Comment on above: Performed By: #### C XSPTUM ####[facility] Z[address]upzypdcv[address] [place] [address]Dr. Emelina Navarro Result 3 Normal [facility] Comment on above: Performed By: #### C XSPTUM ####[facility] Owrmcghcxp[address] [place], [place] [address]Dr. Emelina Navarro Result 4 Normal [facility] Comment on above: Performed By: #### C XSPTUM ####[facility] Gijqiulziq8[address] [place], [place] [address]Dr. Emelina Navarro White Blood Cells Few Normal [facility] Comment on above: Performed By: #### C XSPTUM ####[facility] Utuhleaecs[address] [place], [place] [address]Dr. Emelina Navarro CBC W MANUAL DIFFon 05-10-20 22 ATYPICAL LYMPH # Normal [facility] Comment on above: Performed By: #### C BCADRIAN ####[facility] Hxrdfnhevs09[address] [place] [phone]. Emelina Navarro ATYPICAL LYMPH % Normal [facility] Comment on above: Performed By: #### C BCADRIAN ####[facility] Hzsrtssurl1340 [place] [phone]. Yilan Navarro BAND # 0.5 103/ul Critically high 0.0-0.3 [facility] Comment on above: Performed By: #### C BCADRIAN ####[facility] Dcklhwpomy8[address] [place] [address]Dr. Yilan Navarro BAND % 2 % Normal 0-5 [facility] Comment on above: Performed By: #### C PURVI ####[facility] Yfhjudvlmw47[address] [place] [address]Dr. Emelina Navarro BASOM # 0.00 103/ul Normal 0.00-0.10 [facility] Comment on above: Performed By: #### C PURVI ####[facility] Fnlakbnsga[address] [place] [address]Dr. Emelina Navarro BASOM % 0.0 % Critically low 0.2-2.0 [facility] Comment on above: Performed By: #### C PURVI ####[facility] Cjjsbhxsdf[address] [place] [phone]. Emelina Navarro BLAST # Normal [facility] Comment on above: Performed By: #### C PURVI ####[facility] Ubwtdsypbi[address] [place], [place] [address]Dr. Emelina Navarro BLAST % Normal [facility] Comment on above: Performed By: #### C PURVI ####[facility] Miemltkogd[address] [place] [address]Dr. Emelina Navarro CORRECTED WBC Normal 4.0-11.0 [facility] Comment on above: Performed By: #### C PURVI ####[facility] Gqlvedxctw59[address] [place] [phone]. Awildalan Navarro EOS # 0.24 103/ul Normal 0.00-0.70 [facility] Comment on above: Performed By: #### C PURVI ####[facility] F[address]rkvf[address] [place], [place] [address]Ih. Emelina Navarro EOS% 1.0 % Normal 0.9-7.0 [facility] Comment on above: Performed By: #### C PURVI ####[facility] Yzcysjhbun05[address] [place], [place] [address]Po. Emelina Navarro HCT 41.6 % Critically low 42.0-54.0 [facility] Comment on above: Performed By: #### C PURVI ####[facility] Mxyidpjnob2802 [place], [place] [address]La. Emelina Navarro HGB 13.2 g/dl Critically low 14.0-18.0 [facility] Comment on above: Performed By: #### C PURVI ####[facility] Qrmzudunzc9534 [place], [place] [address]Qg. Emelina Navarro LYMPHM # 0.71 103/ul Critically low 1.20-3.80 [facility] Comment on above: Performed By: #### C PURVI ####[facility] Ptrcivsahg9099 [place], [place] [address]Bh. Emelina Navarro LYMPHM% 3.0 % Critically low 20.5-60.0 [facility] Comment on above: Performed By: #### Poonam LOJA ####[facility] Gurebhclda0599 [place], [place] [address]Km. Emelina Navarro MCH 28.3 pg Normal 25.9-34.0 [facility] Comment on above: Performed By: #### C PURVI ####[facility] Mboymndaoz8335 [place], [place] [address]In. Emelina Navarro MCHC 31.7 g/dl Normal 29.9-35.2 [facility] Comment on above: Performed By: #### C PURVI ####[facility] Tnhibdosjk3286 [place], [place] [address]Td. Emelina Navarro MCV 89.3 fL Normal 80.0-94.0 [facility] Comment on above: Performed By: #### Poonam LOJA ####[facility] Yfyajbfljs8554 [place] [phone]. Emelina Navarro METAMYELOCYTE # Normal [facility] Comment on above: Performed By: #### C PURVI ####[facility] Eynvuxwejy45[address] [place] [phone]. Emelina Navarro METAMYELOCYTE % Normal [facility] Comment on above: Performed By: #### C PURVI ####[facility] Hkonzcznha6316 [place] [phone]. Emelina Navarro MONOM# 0.24 103/ul Critically low 0.30-0.80 [facility] Comment on above: Performed By: #### C PURVI ####[facility] Zqwtsmhuvz[address] [place], [place] [address]Dr. Emelina Navarro MONOM% 1.0 % Critically low 1.7-12.0 [facility] Comment on above: Performed By: #### C PURVI ####[facility] Vqxlhdkzuj[address] [place], [place] [address]Dr. Emelina Navarro MPV 9.7 fL Normal 9.5-13.5 [facility] Comment on above: Performed By: #### C PURVI ####[facility] Uwuncqzitu[address] [place], [place] [address]Dr. Emelina Navarro MYELOCYTE # Normal [facility] Comment on above: Performed By: #### C PURVI ####[facility] Xzedpoygre[address] [place] [phone]. Emelina Navarro MYELOCYTE % Normal [facility] Comment on above: Performed By: #### C PURVI ####[facility] Ucbffbawpl0124 [place] [phone]. Emelina Navarro NRBC Normal [facility] Comment on above: Performed By: #### C PRUVI ####[facility] Uvnngpyejp[address] [place], [place] [address]Dr. Emelina Navarro PLT 192 103/ul Normal 150-450 [facility] Comment on above: Performed By: #### C PURVI ####[facility] Itpywskmsm367[address] [place], [place] [address]Dr. Emelina Navarro RBC 4.66 106/ul Critically low 4.70-6.10 [facility] Comment on above: Performed By: #### C PURVI ####[facility] Ahnorvmwjw45[address] [place] [phone]. Emelina Navarro RDW 16.1 % Critically high 11.0-15.0 [facility] Comment on above: Performed By: #### C PURVI ####[facility] Goeiqlvxak5[address] [place] [address]Dr. Emelina Navarro SEG # 21.95 103/ul Critically high 1.40-6.50 [facility] Comment on above: Performed By: #### C PURVI ####[facility] Naxjzasocj2[address] [place] [address]Dr. Emelina Navarro SEG % 93.0 % Critically high 43.0-75.0 [facility] Comment on above: Performed By: #### C PURVI ####[facility] Ygwkvobeyp[address] [place] [address]Dr. Emelina Navarro WBC 23.6 103/ul Critically high 4.0-11.0 [facility] Comment on above: Performed By: #### C PURVI ####[facility] Lmnxvaxwip8[address] [place] [address]Dr. Emelina Navarro CRPon 05-10-2022 CRP 2.3 mg/dL Critically high <=1.0 [facility] Comment on above: Performed By: #### C MP, HSTROPN, CRP ####[facility] Xbqfnlwsue[address] [place] [address]Dr. Emelina Navarro DIGOXINon 05-10-2022 DIG 0.6 ng/mL Critically low 0.9-2.0 [facility] Comment on above: Performed By: #### D IG ####[facility] Cqidvugqmy[address] [place] [address]Dr. Emelina Navarro POINT OF CARE GLUCOSEon 04-20 Glucose [Mass/Vol] 246 mg/dL Critically high 74-106 [facility] Comment on above: Performed By: #### P OCGLUC ####[facility] Dkeprwsiar26[address] [place] [address]Dr. Emelina Navarro PROF 14(COMP METB)on 022 Albumin [Mass/Vol] 3.0 g/dL Critically low 3.4-5.0 [facility] Comment on above: Performed By: #### C MP, HSTROPN, CRP ####[facility] Uhwytzzgds87[address] [place] [address]Dr. Emelina Navarro Albumin/Globulin [Mass ratio] 0.7 {ratio} Normal [facility] Comment on above: Performed By: #### C MP, HSTROPN, CRP ####[facility] [address]wmmaxq4[address] [place] [address]Dr. Emelina Navarro ALP [Catalytic activity/Vol] 95 U/L Normal 46-116 [facility] Comment on above: Performed By: #### C MP, HSTROPN, CRP ####[facility] Plijvntmng24[address] [place] [address]Dr. Emelina Navarro ALT [Catalytic activity/Vol] 75 U/L Critically high 16-63 [facility] Comment on above: Performed By: #### C MP, HSTROPN, CRP ####[facility] Cmusmcwbdk55[address] [place] [address]Dr. Emelina Navarro Anion gap [Moles/Vol] 11.1 mmol/L Normal [facility] Comment on above: Performed By: #### C MP, HSTROPN, CRP ####[facility] Erdijlciix[address] [place] [address]Dr. Emelina Navarro AST [Catalytic activity/Vol] 25 U/L Normal 15-37 [facility] Comment on above: Performed By: #### C MP, HSTROPN, CRP ####[facility] Zruzqbumpv4862 [place] [address]Dr. Emelina Navarro Bilirubin [Mass/Vol] 0.4 mg/dL Normal 0.2-1.0 [facility] Comment on above: Performed By: #### C MP, HSTROPN, CRP ####[facility] Plwsnyhkgn6532 [place] [address]Dr. Emelina Navarro Calcium [Mass/Vol] 8.3 mg/dL Critically low 8.5-10.1 [facility] Comment on above: Performed By: #### C MP, HSTROPN, CRP ####[facility] Pzhbxgfhfn9[address] [place] [address]Dr. Emelina Navarro Chloride [Moles/Vol] 100 mmol/L Normal 98-107 [facility] Comment on above: Performed By: #### C MP, HSTROPN, CRP ####[facility] Scceirypci[address] [place] [address]Dr. Emelina Navarro CO2 [Moles/Vol] 28.6 mmol/L Normal 21.0-32.0 [facility] Comment on above: Performed By: #### C MP, HSTROPN, CRP ####[facility] Aoydczyknr[address] [place], [place] [address]Dr. Emelina Navarro Creatinine [Mass/Vol] 1.58 mg/dL Critically high 0.70-1.30 [facility] Comment on above: Performed By: #### C MP, HSTROPN, CRP ####[facility] Ultixvsdez8[address] [place], [place] [address]Dr. Emelina Navarro EGFR-AF GRENADIAN 53 mL/min/1.73m2 Critically low >=60 [facility] Comment on above: Performed By: #### C MP, HSTROPN, CRP ####[facility] Aridhfpcdt[address] [place], [place] [address]Dr. Emelina Navarro EGFR-NON AF GRE[place]DIAN 44 mL/min/1.73m2 Critically low >=60 [facility] Comment on above: Performed By: #### C MP, HSTROPN, CRP ####[facility] Cqlxbpuhqi[address] [place], [place] [address]Dr. Emelina Navarro Globulin (S) [Mass/Vol] 4.2 g/dL Normal [facility] Comment on above: Performed By: #### C MP, HSTROPN, CRP ####[facility] Dxwuyrytnm[address] [place], [place] [address]Dr. Emelina Navarro Glucose [Mass/Vol] 230 mg/dL Critically high 74-106 T [facility] Comment on above: Performed By: #### C MP, HSTROPN, CRP ####[facility] Fgnyemzaql5[address] [place] [address]Dr. Emelina Navarro Potassium [Moles/Vol] 4.7 mmol/L Normal 3.5-5.1 [facility] Comment on above: Performed By: #### C MP, HSTROPN, CRP ####[facility] Jryamwgxbo3[address] [place] [address]Dr. Emelina Navarro Protein [Mass/Vol] 7.2 g/dL Normal 6.4-8.2 [facility] Comment on above: Performed By: #### C MP, HSTROPN, CRP ####[facility] Iotxfmecey[address] [place], [place] [address]Dr. Awildanitza Navarro Sodium [Moles/Vol] 135 mmol/L Critically low 136-145 Th [facility] Comment on above: Performed By: #### C MP, HSTROPN, CRP ####[facility] [address]mtdtpli[address] [place], [place] [address]Dr. Awildanitza Navarro Urea nitrogen [Mass/Vol] 45.0 mg/dL Critically high 7.0-18.0 [facility] Comment on above: Performed By: #### C MP, HSTROPN, CRP ####[facility] [address]qjxyyl[address] [place] [address]Dr. Awildanitza Ramon Urea nitrogen/Creatinine [Mass ratio] 28.5 mg/mg Normal [facility] Comment on above: Performed By: #### C MP, HSTROPN, CRP ####[facility] Olhrnbfsck[address] [place], [place] [address]Dr. Emelina Navarro PROTIMEon 05-10-2022 INR Coag (PPP) [Relative time] 2.93 {INR} Normal [facility] Comment on above: Performed By: #### P T ####[facility] Qtlanlfzdo15[address] [place], [place] [address]Dr. Emelina Navarro INR GUIDELINES SEE BELOW Normal [facility] Comment on above: Result Comment: WENDY RED INR: 2.0 - 3.0 CONDITIONS NOT LISTED BELOW 2.5 - 3.5 FOR PROSTHETIC HEART VALVE REPLACEMENT 2.5 - 3.5 RECURRENT THROMBOSIS Performed By: #### P T ####[facility] [address]fkhadvime[address] [place] [address]Dr. Emelina Navarro PT Coag (PPP) [Time] 29.5 s Critically high 9.0-11.6 [facility] Comment on above: Performed By: #### P T ####[facility] Zdxmkdxavg475[address] [place] [address]Dr. Emelina Navarro TROPONIN, HIGH SENSITIVITYon 05-10-2022 HSTROP 38.3 pg/mL Normal 4.0-76.1 [facility] Comment on above: Result Comment: CUT- OFF POINTS HAVE BEEN ESTABLISHED BASED ON THE FOURTH UNIVERSAL DEFINITIONS OF MYOCARDIALINFARCTION. THE UPPER REFERENCE LIMIT (URL) OF TROPONIN, DEFINED THE 99TH PERCENTILE OFcTnI DISTRIBUTION IN A REFERENCE POPULATION, HAS BEEN CONFIRMED THE DECISION THRESHOLDFOR ND DIAGNOSIS. Performed By: #### C MP, HSTROPN, CRP ####[facility] Supdbyutch[address] [place], [place] [address]Dr. Emelina Navarro CBC AUTO DIFFon 05-09-2022 BASO # 0.0 103/ul Normal 0.0-0.1 [facility] Comment on above: Performed By: #### C BC ####[facility] Lckghfkfzl[address] [place], [place] [address]DrWesley Navarro Basophils/100 WBC (Bld) 0.1 % Critically low 0.2-2.0 [facility] Comment on above: Performed By: #### C BC ####[facility] Rhgnqbynml2[address] [place], [place] [address]DrWesley Navarro EO # 0.0 103/ul Normal 0.0-0.7 [facility] Comment on above: Performed By: #### C BC ####[facility] Ezbivsghbe4[address] [place], [place] [address]DrWesley Navarro Eosinophils/100 WBC (Bld) 0.0 % Critically low 0.9-7.0 [facility] Comment on above: Performed By: #### C BC ####[facility] Picerojyau[address] [place] [address]Dr. Emelina Navarro Erythrocyte distribution width (RBC) [Ratio] 15.9 % Critically high 11.0-15.0 [facility] Comment on above: Performed By: #### C BC ####[facility] Letvdeakuy9625[address] [place], [place] [address]DrWesley Navarro Hematocrit (Bld) [Volume fraction] 42.7 % Normal 42.0-54.0 [facility] Comment on above: Performed By: #### C BC ####[facility] Wihlmamtlv[address] [place], [place] [address]DrWesley Navarro Hemoglobin (Bld) [Mass/Vol] 13.5 g/dL Critically low 14.0-18.0 [facility] Comment on above: Performed By: #### C BC ####[facility] Qmmabexyoj20[address] [place], [place] [address]DrWesley Navarro IG # 0.14 10e3/ul Critically high 0.00-0.03 [facility] Comment on above: Performed By: #### C BC ####[facility] Jvitwwyjve6740[address] [place], [place] [address]DrWesley Navarro IG % 0.8 % Critically high 0.0-0.5 [facility] Comment on above: Performed By: #### C BC ####[facility] Ejwlmzblka47[address] [place], [place] [address]DrWesley Navarro LYMPH # 1.1 103/ul Critically low 1.2-3.8 [facility] Comment on above: Performed By: #### C BC ####[facility] Fohctnxdoq08[address] [place], [place] [address]DrWesley Navarro Lymphocytes/100 WBC (Bld) 6.2 % Critically low 20.5-60.0 [facility] Comment on above: Performed By: #### C BC ####[facility] Ggqsbpaexz254[address] [place], [place] [address]DrWesley Navarro MANUAL DIFF REQ NO Normal [facility] Comment on above: Performed By: #### C BC ####[facility] R[address]ch[address]am[address] [place] [id number] Navarro MCH (RBC) [Entitic mass] 28.5 pg Normal 25.9-34.0 [facility] Comment on above: Performed By: #### C BC ####[facility] Eyxiagbbsa68[address] [place] [address]DrWesley Navarro MCHC (RBC) [Mass/Vol] 31.6 g/dL Normal 29.9-35.2 [facility] Comment on above: Performed By: #### C BC ####[facility] Xigmuuzvmt59[address] [place] [address]DrWesley Navarro MCV (RBC) [Entitic vol] 90.3 fL Normal 80.0-94.0 [facility] Comment on above: Performed By: #### C BC ####[facility] Bzhnfeisuf8[address] [place], [place] [address]DrWesley Navarro MONO # 0.4 103/ul Normal 0.3-0.8 [facility] Comment on above: Performed By: #### C BC ####[facility] Aetkpeplmi[address] [place], [place] [address]DrWesley Navarro Monocytes/100 WBC (Bld) 2.1 % Normal 1.7-12.0 [facility] Comment on above: Performed By: #### C BC ####[facility] Vaydeadakk57[address] [place], [place] [address]DrWesley Navarro NEUT # 16.2 103/ul Critically high 1.4-6.[address] [facility] Comment on above: Performed By: #### C BC ####[facility] Lgpctwcwdj9829[address] [place], [place] [address]DrWesley Navarro Neutrophils/100 WBC (Bld) 90.8 % Critically high 43.0-75.0 [facility] Comment on above: Performed By: #### C BC ####[facility] Eetpxekvsb[address] [place], [place] [address]DrWesley Navarro Platelet mean volume (Bld) [Entitic vol] 10.2 fL Normal 9.5-13.5 [facility] Comment on above: Performed By: #### C BC ####[facility] [address]fl[address] [place] [address]Dr. Emelina Navarro PLT 215 103/ul Normal 150-450 [facility] Comment on above: Performed By: #### C BC ####[facility] Ankhfwntlj65[address] [place] [address]Dr. Emelina Navarro RBC 4.73 106/ul Normal 4.70-6.10 [facility] Comment on above: Performed By: #### C BC ####[facility] Aunfqsvczm14[address] [place] [address]Dr. Emelina Navarro WBC 17.8 103/ul Critically high 4.0-11.[address] [facility] Comment on above: Performed By: #### C BC ####[facility] Dnctnwyjzh85[address] [place], [place] [address]Dr. Emelina Navarro CRPon 05-09-2022 CRP 4.4 mg/dL Critically high <=1.0 [facility] Comment on above: Performed By: #### C MP, HSTROPN, CRP ####[facility] Wkibudrrfn[address] [place], [place] [address]Dr. Emelina Navarro DIGOXINon 05-09-2022 DIG 1.3 ng/mL Normal 0.9-2.0 [facility] Comment on above: Performed By: #### D IG ####[facility] Lvmhyhorqk01[address] [place], [place] [address]Dr. Emelina Navarro POINT OF CARE GLUCOSEon 04-20 Glucose [Mass/Vol] 319 mg/dL Critically high 74-106 [facility] Comment on above: Performed By: #### P OCGLUC ####[facility] Celyrcuocp[address] [place], [place] [address]Dr. Emelina Navarro Glucose [Mass/Vol] 259 mg/dL Critically high 74-106 [facility] Comment on above: Performed By: #### P OCGLUC ####[facility] Jwcqidzpls[address] [place] [address]Dr. Emelina Navarro Glucose [Mass/Vol] 564 mg/dL Critically high 74-106 T [facility] Comment on above: Result Comment: NURS E NOTIFIED Performed By: #### P OCGLUC ####[facility] Kcsjjiedbq[address] [place] [address]Dr. Emelina Navarro PROF 14(COMP METB)on 022 Albumin [Mass/Vol] 3.1 g/dL Critically low 3.4-5.0 [facility] Comment on above: Performed By: #### C MP, HSTROPN, CRP ####[facility] Vewrebgdry28[address] [place] [address]Dr. Emelina Navarro Albumin/Globulin [Mass ratio] 0.7 {ratio} Normal [facility] Comment on above: Performed By: #### C MP, HSTROPN, CRP ####[facility] Lcgybnelxw[address] [place], [place] [address]Dr. Emelina Navarro ALP [Catalytic activity/Vol] 102 U/L Normal 46-116 [facility] Comment on above: Performed By: #### C MP, HSTROPN, CRP ####[facility] Jiwucxocbi15[address] [place], [place] [address]Dr. Emelina Navarro ALT [Catalytic activity/Vol] 81 U/L Critically high 16-63 [facility] Comment on above: Performed By: #### C MP, HSTROPN, CRP ####[facility] Mtblbzecui65[address] [place] [address]Dr. Emelina Navarro Anion gap [Moles/Vol] 12.3 mmol/L Normal [facility] Comment on above: Performed By: #### C MP, HSTROPN, CRP ####[facility] Evhievunrz806[address] [place], [place] [address]Dr. Emelina Navarro AST [Catalytic activity/Vol] 22 U/L Normal 15-37 [facility] Comment on above: Performed By: #### C MP, HSTROPN, CRP ####[facility] Thmduapfjt[address] [place] [address]Dr. Emelina Navarro Bilirubin [Mass/Vol] 0.6 mg/dL Normal 0.2-1.0 [facility] Comment on above: Performed By: #### C MP, HSTROPN, CRP ####[facility] X[address]wqo[address] [place] [address]Dr. Emelina Navarro Calcium [Mass/Vol] 8.6 mg/dL Normal 8.5-10.1 [facility] Comment on above: Performed By: #### C MP, HSTROPN, CRP ####[facility] Gcuitkgfue34[address] [place] [address]Dr. Emelina Navarro Chloride [Moles/Vol] 100 mmol/L Normal 98-107 [facility] Comment on above: Performed By: #### C MP, HSTROPN, CRP ####[facility] Yfroqntyhn6913[address] [place], [place] [address]Dr. Emelina Navarro CO2 [Moles/Vol] 28.4 mmol/L Normal 21.0-32.[address] [facility] Comment on above: Performed By: #### C MP, HSTROPN, CRP ####[facility] Iakkifmghk12[address] [place], [place] [address]Dr. Emelina Navarro Creatinine [Mass/Vol] 1.91 mg/dL Critically high 0.70-1.30 [facility] Comment on above: Performed By: #### C MP, HSTROPN, CRP ####[facility] Yuzqsycwxe[address] [place], [place] [address]Dr. Emelina Navarro EGFR-AF GRENADIAN 43 mL/min/1.73m2 Critically low >=60 [facility] Comment on above: Performed By: #### C MP, HSTROPN, CRP ####[facility] Iyfgtwkful[address] [place], [place] [address]Dr. Emelina Navarro EGFR-NON AF GRENADIAN 35 mL/min/1.73m2 Critically low >=60 [facility] Comment on above: Performed By: #### C MP, HSTROPN, CRP ####[facility] Lmperrfrwv5[address] [place], [place] [address]Dr. Emelina Navarro Globulin (S) [Mass/Vol] 4.6 g/dL Normal [facility] Comment on above: Performed By: #### C MP, HSTROPN, CRP ####[facility] Pytjaklnva[address] [place] [address]Dr. Emelina Navarro Glucose [Mass/Vol] 242 mg/dL Critically high 74-106 T [facility] Comment on above: Performed By: #### C MP, HSTROPN, CRP ####[facility] Ljetdnewjt19[address] [place] [address]Dr. Emelina Navarro Potassium [Moles/Vol] 4.7 mmol/L Normal 3.5-5.1 [facility] Comment on above: Performed By: #### C MP, HSTROPN, CRP ####[facility] Msrobgyqjn4[address] [place] [address]Dr. Emelina Navarro Protein [Mass/Vol] 7.7 g/dL Normal 6.4-8.2 [facility] Comment on above: Performed By: #### C MP, HSTROPN, CRP ####[facility] Pnqbnomnvi64[address] [place], [place] [address]Dr. Emelina Navarro Sodium [Moles/Vol] 136 mmol/L Normal 136-145 [facility] Comment on above: Performed By: #### C MP, HSTROPN, CRP ####[facility] Wzdoxlhdlr[address] [place], [place] [address]Dr. Emelina Navarro Urea nitrogen [Mass/Vol] 48.0 mg/dL Critically high 7.0-18.0 [facility] Comment on above: Performed By: #### C MP, HSTROPN, CRP ####[facility] Mngfjyvxlv[address] [place], [place] [address]Dr. Emelina Navarro Urea nitrogen/Creatinine [Mass ratio] 25.1 mg/mg Normal [facility] Comment on above: Performed By: #### C MP, HSTROPN, CRP ####[facility] Dxwcnpjbzw8[address] [place], [place] [address]Dr. Emelina Navarro PROTIMEon 05-09-2022 INR Coag (PPP) [Relative time] 2.59 {INR} Normal [facility] Comment on above: Performed By: #### P T ####[facility] [address]uvnuwszc[address] [place] [address]DrWesley Navarro INR GUIDELINES SEE BELOW Normal [facility] Comment on above: Result Comment: WENDY RED INR: 2.0 - 3.0 CONDITIONS NOT LISTED BELOW 2.5 - 3.5 FOR PROSTHETIC HEART VALVE REPLACEMENT 2.5 - 3.5 RECURRENT THROMBOSIS Performed By: #### P T ####[facility] Ap[address]xdoleo[address] [place] [address]DrWesley Navarro PT Coag (PPP) [Time] 26.3 s Critically high 9.0-11.6 [facility] Comment on above: Performed By: #### P T ####[facility] Phzwyllwdo[address] [place], [place] [address]Dr. Emelina Navarro TROPONIN, HIGH SENSITIVITYon 05-09-2022 HSTROP 45.4 pg/mL Normal 4.0-76.1 [facility] Comment on above: Result Comment: CUT- OFF POINTS HAVE BEEN ESTABLISHED BASED ON THE FOURTH UNIVERSAL DEFINITIONS OF MYOCARDIALINFARCTION. THE UPPER REFERENCE LIMIT (URL) OF TROPONIN, DEFINED THE 99TH PERCENTILE OFcTnI DISTRIBUTION IN A REFERENCE POPULATION, HAS BEEN CONFIRMED THE DECISION THRESHOLDFOR ND DIAGNOSIS. Performed By: #### C MP, HSTROPN, CRP ####[facility] Vptxhfbfqo[address] [place], [place] [address]Dr. Emelina Navarro XR FOOT RT MIN 3 VIEWSon XR FOOT RT MIN 3 VIEWS Normal [facility] CARDIAC IMTIAZ 3-6on 2 CK [Catalytic activity/Vol] 34 U/L Critically low 39-308 [facility] Comment on above: Performed By: #### C MREP ####[facility] Zrrnmubvim[address] [place], [place] [address]DrWesley Navarro CK.MB [Mass/Vol] 3.37 ng/mL Normal <=3.[address] [facility] Comment on above: Performed By: #### C MREP ####[facility] Cxhkewntcz[address] [place], [place] [address]DrWesley Navarro HSTROP 53.5 pg/mL Normal 4.0-76.1 [facility] Comment on above: Result Comment: CUT- OFF POINTS HAVE BEEN ESTABLISHED BASED ON THE FOURTH UNIVERSAL DEFINITIONS OF MYOCARDIALINFARCTION. THE UPPER REFERENCE LIMIT (URL) OF TROPONIN, DEFINED THE 99TH PERCENTILE OFcTnI DISTRIBUTION IN A REFERENCE POPULATION, HAS BEEN CONFIRMED THE DECISION THRESHOLDFOR ND DIAGNOSIS. Performed By: #### C MREP ####[facility] Et[address]ujzq[address] [place] [address]Dr. Emelina Navarro CK [Catalytic activity/Vol] 39 U/L Normal 39-308 [facility] Comment on above: Performed By: #### C MREP ####[facility] Rfjxooebmj35[address] [place] [address]Dr. Emelina Navarro CK.MB [Mass/Vol] 2.74 ng/mL Normal <=3.[address] [facility] Comment on above: Performed By: #### C MREP ####[facility] Dfqzwgcwke15[address] [place] [address]Dr. Emelina Navarro HSTROP 68.7 pg/mL Normal 4.0-76.1 [facility] Comment on above: Result Comment: CUT- OFF POINTS HAVE BEEN ESTABLISHED BASED ON THE FOURTH UNIVERSAL DEFINITIONS OF MYOCARDIALINFARCTION. THE UPPER REFERENCE LIMIT (URL) OF TROPONIN, DEFINED THE 99TH PERCENTILE OFcTnI DISTRIBUTION IN A REFERENCE POPULATION, HAS BEEN CONFIRMED THE DECISION THRESHOLDFOR ND DIAGNOSIS. Performed By: #### C MREP ####[facility] Xjctbbsrxa[address] [place] [address]Dr. Emelina Navarro CARDIAC IMTIAZ ADMITon 022 CK [Catalytic activity/Vol] 30 U/L Critically low 39-308 [facility] Comment on above: Performed By: #### SHIVAM Mcgee MP ####[facility] Xvtxpltctl26[address] [place] [address]Dr. Emelina Navarro CK.MB [Mass/Vol] 2.88 ng/mL Normal <=3.[address] [facility] Comment on above: Performed By: #### SHIVAM Mcgee MP ####[facility] Vplipdxadz[address] [place], [place] [address]Dr. Emelina Navarro HSTROP 69.9 pg/mL Normal 4.0-76.1 [facility] Comment on above: Result Comment: CUT- OFF POINTS HAVE BEEN ESTABLISHED BASED ON THE FOURTH UNIVERSAL DEFINITIONS OF MYOCARDIALINFARCTION. THE UPPER REFERENCE LIMIT (URL) OF TROPONIN, DEFINED THE 99TH PERCENTILE OFcTnI DISTRIBUTION IN A REFERENCE POPULATION, HAS BEEN CONFIRMED THE DECISION THRESHOLDFOR ND DIAGNOSIS. Performed By: #### B SHIVAM PRAJAPATI ####[facility] [address]zrm[address] [place] [address]Dr. Emelina Ramon URBANO 79 ng/mL Normal 16-96 [facility] Comment on above: Performed By: #### B SHIVAM PRAJAPATI ####[facility] Jhudqueyow[address] [place], [place] [address]Dr. Emelina Ramon CBC AUTO DIFFon 05-08-2022 BASO # 0.0 103/ul Normal 0.0-0.1 [facility] Comment on above: Performed By: #### C BC ####[facility] Jxboctknsj[address] [place], [place] [address]Dr. Emelina Navarro Basophils/100 WBC (Bld) 0.2 % Normal 0.2-2.0 [facility] Comment on above: Performed By: #### C BC ####[facility] Idgdmwsqmy[address] [place], [place] [address]Dr. Emelina Navarro EO # 0.2 103/ul Normal 0.0-0.7 [facility] Comment on above: Performed By: #### C BC ####[facility] Qtnspvwmao06[address] [place], [place] [address]Dr. Emelina Ramon Eosinophils/100 WBC (Bld) 1.3 % Normal 0.9-7.0 [facility] Comment on above: Performed By: #### C BC ####[facility] Ruuncqucif[address] [place], [place] [address]Dr. Emelina Navarro Erythrocyte distribution width (RBC) [Ratio] 16.2 % Critically high 11.0-15.0 [facility] Comment on above: Performed By: #### C BC ####[facility] O[address]fxxcqfe[address] [place] [address]Dr. Emelina Navarro Hematocrit (Bld) [Volume fraction] 43.8 % Normal 42.0-54.0 [facility] Comment on above: Performed By: #### C BC ####[facility] Tblcipqxud[address] [place] [address]Dr. Emelina Ramon Hemoglobin (Bld) [Mass/Vol] 13.9 g/dL Critically low 14.0-18.0 [facility] Comment on above: Performed By: #### C BC ####[facility] Pwcugbeymf[address] [place] [address]Dr. Emelina Navarro IG # 0.17 10e3/ul Critically high 0.00-0.03 [facility] Comment on above: Performed By: #### C BC ####[facility] Prnbiujrhi[address] [place] [address]Dr. Emelina Navarro IG % 1.0 % Critically high 0.0-0.5 [facility] Comment on above: Performed By: #### C BC ####[facility] Dedsebbqtv64[address] [place] [address]Dr. Emelina Navarro LYMPH # 1.1 103/ul Critically low 1.2-3.8 [facility] Comment on above: Performed By: #### C BC ####[facility] Texchcqqxo02[address] [place] [address]Dr. Emelina Navarro Lymphocytes/100 WBC (Bld) 6.5 % Critically low 20.5-60.0 [facility] Comment on above: Performed By: #### C BC ####[facility] S[address]fwapirz[address] [place] [address]Dr. Emelina Navarro MANUAL DIFF REQ NO Normal [facility] Comment on above: Performed By: #### C BC ####[facility] Peojjxmqzc[address] [place], [place] [address]Dr. Emelina Navarro MCH (RBC) [Entitic mass] 28.8 pg Normal 25.9-34.0 [facility] Comment on above: Performed By: #### C BC ####[facility] Xrrkwhmoam39[address] [place] [id number]. Emelina Navarro MCHC (RBC) [Mass/Vol] 31.7 g/dL Normal 29.9-35.2 [facility] Comment on above: Performed By: #### C BC ####[facility] Wkepesvhcd97[address] [place] [id number]. Emelina Navarro MCV (RBC) [Entitic vol] 90.9 fL Normal 80.0-94.0 [facility] Comment on above: Performed By: #### C BC ####[facility] Jnrqxsornm[address] [place] [address]Dr. Emelina Navarro MONO # 1.4 103/ul Critically high 0.3-0.8 [facility] Comment on above: Performed By: #### C BC ####[facility] Cdevccbmas45[address] [place] [id number]. Awildanitza Navarro Monocytes/100 WBC (Bld) 8.5 % Normal 1.7-12.0 [facility] Comment on above: Performed By: #### C BC ####[facility] Linkakqkwm20[address] [place] [phone]. Emelina Navarro NEUT # 13.9 103/ul Critically high 1.4-6.[address] [facility] Comment on above: Performed By: #### C BC ####[facility] Yraxwfzarq0457 [place] [address]Dr. Emelina Ramon Neutrophils/100 WBC (Bld) 82.5 % Critically high 43.0-75.0 [facility] Comment on above: Performed By: #### C BC ####[facility] Yddahkuqfn42[address] [place] [phone]. Emelina Navarro Platelet mean volume (Bld) [Entitic vol] 9.8 fL Normal 9.5-13.5 [facility] Comment on above: Performed By: #### C BC ####[facility] Datessxcqj36[address] [place] [phone]. Emelina Ramon PLT 214 103/ul Normal 150-450 [facility] Comment on above: Performed By: #### C BC ####[facility] [address]ot[address] [place], [place] [address]Kh. Emelina Navarro RBC 4.82 106/ul Normal 4.70-6.10 [facility] Comment on above: Performed By: #### C BC ####[facility] Kyqxlqsjos6[address] [place], [place] [address]Lj. Emelina Navarro WBC 16.8 103/ul Critically high 4.0-11.[address] [facility] Comment on above: Performed By: #### C BC ####[facility] Upssyeivbw16[address] [place], [place] [address]Bo. Emelina Navarro CRPon 05-08-2022 CRP 2.5 mg/dL Critically high <=1.0 [facility] Comment on above: Performed By: #### C RP ####[facility] [address]zclju24[address] [place], [place] [address]Ob. Emelina Navarro Covid-19 PCR (CVDTBH)on 04-20 SARS-CoV-2 (COVID-19) RNA RADHA+probe Ql (Unsp spec) Detected Critically abnormal NOT DETECTED [facility] Comment on above: Result Comment: This test is not yet approved or cleared by the [place] FDA. When there are no FDA-approved or cleared tests available, and other criteria are met, FDA can make tests available under an emergency access mechanism called an Emergency Use Authorization (EUA). The EUA for this test is supported by the Automobile Mechanic Supervisor of Health and Human Service's declaration that [...] be used). Performed By: #### C VDTBH ####[facility] [address]rqonfvx24[address] [place], [place] [address]Ip. Emelina Navarro DIGOXINon 05-08-2022 DIG 0.9 ng/mL Normal 0.9-2.0 [facility] Comment on above: Performed By: #### D IG ####[facility] [address]oyyak[address] [place] [address]Dr. Emelina Navarro LACTATE/LACTIC ACIDon 2021 Lactate [Moles/Vol] 1.6 mmol/L Normal 0.4-1.9 [facility] Comment on above: Performed By: #### L ACT ####[facility] Jibsqxcnhf13[address] [place] [address]Dr. Emelina Navarro Lactate [Moles/Vol] 1.3 mmol/L Normal 0.4-1.9 [facility] Comment on above: Performed By: #### L ACT ####[facility] Nwaicmeuyw[address] [place], [place] [address]Dr. Awildanitza Ramon POINT OF CARE GLUCOSEon 04-20 Glucose [Mass/Vol] 244 mg/dL Critically high [address] [place] [address] Comment on above: Performed By: #### P OCGLUC ####[facility] Ipnwmctmfy[address] [place], [place] [address]Dr. Emelina Navarro Glucose [Mass/Vol] 405 mg/dL Critically high [address] [place] [address] Comment on above: Performed By: #### P OCGLUC ####[facility] Qpavqyyhhm[address] [place], [place] [address]Dr. Emelina Navarro Glucose [Mass/Vol] 352 mg/dL Critically high [address] [place] [address] Comment on above: Performed By: #### P OCGLUC ####[facility] Kcxzcifiux[address] [place], [place] [address]Dr. Awildanitza Navarro Glucose [Mass/Vol] 285 mg/dL Critically high [address] [place] [address] Comment on above: Performed By: #### P OCGLUC ####[facility] Tutbliquvq[address] [place], [place] [address]Dr. Emelina Navarro PROF CHEM 8 (BAS METB)on Anion gap [Moles/Vol] 13.7 mmol/L Normal [facility] Comment on above: Performed By: #### B MP ####[facility] Pbwikyudut[address] [place], [place] [address]Dr. Emelina Navarro Calcium [Mass/Vol] 8.4 mg/dL Critically low 8.5-10.1 Th [facility] Comment on above: Performed By: #### B MP ####[facility] Lupknllczo[address] [place], [place] [address]Dr. Emelina Navarro Chloride [Moles/Vol] 93 mmol/L Critically low 98-107 [facility] Comment on above: Performed By: #### B MP ####[facility] Pppwdggckk74[address] [place], [place] [address]Dr. Emelina Navarro CO2 [Moles/Vol] 26.4 mmol/L Normal 21.0-32.[address] [facility] Comment on above: Performed By: #### B MP ####[facility] Hhiawgekak9[address] [place], [place] [address]Dr. Emelina Navarro Creatinine [Mass/Vol] 2.23 mg/dL Critically high 0.70-1.30 [facility] Comment on above: Performed By: #### B MP ####[facility] Jycyhcbaau97[address] [place], [place] [address]Dr. Emelina Navarro EGFR-AF GRENADIAN 36 mL/min/1.73m2 Critically low >=60 [facility] Comment on above: Performed By: #### B MP ####[facility] Loxvwnkrbn01[address] [place], [place] [address]Dr. Emelina Navarro EGFR-NON AF GRENADIAN 30 mL/min/1.73m2 Critically low >=60 [facility] Comment on above: Performed By: #### B MP ####[facility] Lkkasnazvx3033[address] [place], [place] [address]Dr. Emelina Navarro Glucose [Mass/Vol] 451 mg/dL Critically high 74-106 T [facility] Comment on above: Performed By: #### B MP ####[facility] Egkcbbhuiq3849[address] [place], [place] [address]Dr. Emelina Navarro Potassium [Moles/Vol] 5.1 mmol/L Normal 3.5-5.1 [facility] Comment on above: Performed By: #### B MP ####[facility] Azhgvwprvw8[address] [place], [place] [address]Dr. Emelina Navarro Sodium [Moles/Vol] 128 mmol/L Critically low 136-145 [facility] Comment on above: Performed By: #### B VICTORINA ####[facility] Ivfkmhrfrz[address] [place] [address]Dr. Awildanitza Ramon Urea nitrogen [Mass/Vol] 40.0 mg/dL Critically high 7.0-18.0 [facility] Comment on above: Performed By: #### B VICTORINA ####[facility] Dpwyxrrqpv[address] [place], [place] [address]Dr. Emelina Navarro Urea nitrogen/Creatinine [Mass ratio] 17.9 mg/mg Normal [facility] Comment on above: Performed By: #### B VICTORINA ####[facility] Duwokbqlst6915[address] [place], [place] [address]Dr. Awildanitza Ramon Anion gap [Moles/Vol] 13.7 mmol/L Normal [facility] Comment on above: Performed By: #### B SHIVAM PRAJAPATI ####[facility] Ktgqpxgzak73[address] [place], [place] [address]Dr. Emelina Navarro Calcium [Mass/Vol] 8.5 mg/dL Normal 8.5-10.1 [facility] Comment on above: Performed By: #### B SHIVAM PRAJAPATI ####[facility] Yorzptixmi12[address] [place], [place] [address]Dr. Emelina Navarro Chloride [Moles/Vol] 98 mmol/L Normal 98-107 [facility] Comment on above: Performed By: #### B SHIVAM PRAJAPATI ####[facility] Wqoggydegx33[address] [place], [place] [address]Dr. Emelina Navarro CO2 [Moles/Vol] 25.0 mmol/L Normal 21.0-32.0 [facility] Comment on above: Performed By: #### SHIVAM Mcgee MP ####[facility] Bvugkqdoaz199[address] [place], [place] [address]Dr. Emelina Navarro Creatinine [Mass/Vol] 1.97 mg/dL Critically high 0.70-1.30 [facility] Comment on above: Performed By: #### B SHIVAM PRAJAPATI ####[facility] Tabfcixvba3949[address] [place], [place] [address]Dr. Emelina Navarro EGFR-AF GRENADIAN 41 mL/min/1.73m2 Critically low >=60 [facility] Comment on above: Performed By: #### B VICTORINA, SHIVAM ####[facility] Y[address]ukp[address]kt[address] [place] [address]Dr. Emelina Navarro EGFR-NON AF GRENADIAN 34 mL/min/1.73m2 Critically low >=60 [facility] Comment on above: Performed By: #### B VICTORINA, SHIVAM ####[facility] Tlmiemkhxt[address] [place] [address]Dr. Awildanitza Navarro Glucose [Mass/Vol] 239 mg/dL Critically high 74-106 T [facility] Comment on above: Performed By: #### B VICTORINA, SHIVAM ####[facility] Wizfrakzer5361 [place] [address]Dr. Emelina Navarro Potassium [Moles/Vol] 5.7 mmol/L Critically high 3.5-5.1 [facility] Comment on above: Performed By: #### B VICTORINA, SHIVAM ####[facility] Bctjazsxtz8193 [place] [address]Dr. Awildanitza Ramon Sodium [Moles/Vol] 131 mmol/L Critically low 136-145 Th [facility] Comment on above: Performed By: #### B VICTORINA, SHIVAM ####[facility] Ckmcqjplmz9640 [place] [address]Dr. Emelina Navarro Urea nitrogen [Mass/Vol] 37.0 mg/dL Critically high 7.0-18.0 [facility] Comment on above: Performed By: #### B VICTORINA, SHIVAM ####[facility] Nefbtbkear17[address] [place] [address]Dr. Emelina Navarro Urea nitrogen/Creatinine [Mass ratio] 18.8 mg/mg Normal [facility] Comment on above: Performed By: #### B VICTORINA, SHIVAM ####[facility] Njmdetlpzt0825 [place] [address]Dr. Emelina Navarro PROTIMEon 05-08-2022 INR Coag (PPP) [Relative time] 2.28 {INR} Normal [facility] Comment on above: Performed By: #### P T ####[facility] Sgpqqhanef5241 [place] [address]DrWesley Navarro INR GUIDELINES SEE BELOW Normal [facility] Comment on above: Result Comment: WENDY RED INR: 2.0 - 3.0 CONDITIONS NOT LISTED BELOW 2.5 - 3.5 FOR PROSTHETIC HEART VALVE REPLACEMENT 2.5 - 3.5 RECURRENT THROMBOSIS Performed By: #### P T ####[facility] Gfrghovlle0560[address] [place], [place] [address]Dr. Emelina Navarro PT Coag (PPP) [Time] 23.3 s Critically high 9.0-11.6 [facility] Comment on above: Performed By: #### P T ####[facility] Iqlbjdrmov612[address] [place], [place] [address]DrWesley Nvaarro US FERNY DOP LEG LTon 05-08-20 US FERNY DOP LEG LT Normal [facility] XR CHEST 1 Von 05-08-2022 XR CHEST 1 V Normal [facility] CBC AUTO DIFFon 05-02-2022 BASO # 0.0 103/ul Normal 0.0-0.1 [facility] Comment on above: Performed By: #### C BC ####[facility] Ucokuszcrp2[address] [place], [place] [address]DrWesley Navarro Basophils/100 WBC (Bld) 0.2 % Normal 0.2-2.0 [facility] Comment on above: Performed By: #### C BC ####[facility] Hfpukakqwt5335[address] [place], [place] [address]DrWesley Navarro EO # 0.0 103/ul Normal 0.0-0.7 [facility] Comment on above: Performed By: #### C BC ####[facility] Vkxhkdxcqv935[address] [place], [place] [address]DrWesley Navarro Eosinophils/100 WBC (Bld) 0.2 % Critically low 0.9-7.0 [facility] Comment on above: Performed By: #### C BC ####[facility] Etlivrlwao9438[address] [place], [place] [address]DrWesley Navarro Erythrocyte distribution width (RBC) [Ratio] 16.5 % Critically high 11.0-15.0 [facility] Comment on above: Performed By: #### C BC ####[facility] Codwihcbmc59[address] [place] [address]Dr. Emelina Navarro Hematocrit (Bld) [Volume fraction] 42.0 % Normal 42.0-54.0 [facility] Comment on above: Performed By: #### C BC ####[facility] Ogezfcstrc7697[address] [place], [place] [address]Dr. Emelina Ramon Hemoglobin (Bld) [Mass/Vol] 13.3 g/dL Critically low 14.0-18.0 [facility] Comment on above: Performed By: #### C BC ####[facility] Uxmfrogywl1135[address] [place], [place] [address]Dr. Emelina Navarro IG # 0.14 10e3/ul Critically high 0.00-0.03 [facility] Comment on above: Performed By: #### C BC ####[facility] Vnyfjdpbqv5[address] [place], [place] [address]Dr. Awildanitza Navarro IG % 1.1 % Critically high 0.0-0.5 [facility] Comment on above: Performed By: #### C BC ####[facility] Lknygfqovj4[address] [place], [place] [address]DrWesley Emelina Ramon LYMPH # 1.3 103/ul Normal 1.2-3.8 [facility] Comment on above: Performed By: #### C BC ####[facility] Zpzwayrpks6[address] [place], [place] [address]DrWesley Awildanitza Navarro Lymphocytes/100 WBC (Bld) 9.8 % Critically low 20.5-60.0 [facility] Comment on above: Performed By: #### C BC ####[facility] Gmmdpqsmfh59[address] [place], [place] [address]DrWesley Awildanitza Navarro MANUAL DIFF REQ NO Normal [facility] Comment on above: Performed By: #### C BC ####[facility] Eyknjsanvh2509[address] [place], [place] [address]DrWesley Navarro MCH (RBC) [Entitic mass] 28.9 pg Normal 25.9-34.0 [facility] Comment on above: Performed By: #### C BC ####[facility] Zzattbsesv22[address] [place] [address]Dr. Emelina Ramon MCHC (RBC) [Mass/Vol] 31.7 g/dL Normal 29.9-35.2 [facility] Comment on above: Performed By: #### C BC ####[facility] Gjupenbnjw[address] [place], [place] [address]Dr. Emelina Navarro MCV (RBC) [Entitic vol] 91.1 fL Normal 80.0-94.0 [facility] Comment on above: Performed By: #### C BC ####[facility] Nfeflfqwwk[address] [place], [place] [address]Dr. Emelina Navarro MONO # 1.2 103/ul Critically high 0.3-0.8 [facility] Comment on above: Performed By: #### C BC ####[facility] Xrirkmnyaz223[address] [place], [place] [address]Dr. Emelina Navarro Monocytes/100 WBC (Bld) 9.6 % Normal 1.7-12.0 [facility] Comment on above: Performed By: #### C BC ####[facility] Htkffrhffz312[address] [place], [place] [address]DrWesley Navarro NEUT # 10.1 103/ul Critically high 1.4-6.[address] [facility] Comment on above: Performed By: #### C BC ####[facility] Dcikkrumgq[address] [place], [place] [address]Dr. Emelina Navarro Neutrophils/100 WBC (Bld) 79.1 % Critically high 43.0-75.0 [facility] Comment on above: Performed By: #### C BC ####[facility] Jslaihngxb06[address] [place], [place] [address]Dr. Emelina Navarro Platelet mean volume (Bld) [Entitic vol] 10.0 fL Normal 9.5-13.5 [facility] Comment on above: Performed By: #### C BC ####[facility] [address]gkuaggib[address] [place] [id number]. Emelina Navarro PLT 188 103/ul Normal 150-450 [facility] Comment on above: Performed By: #### C BC ####[facility] Bfzudbnwac7760 [place] [address]Dr. Emelina Navarro RBC 4.61 106/ul Critically low 4.70-6.10 [facility] Comment on above: Performed By: #### C BC ####[facility] Euxcovzyjx9269 [place] [id number]. Emelina Navarro WBC 12.8 103/ul Critically high 4.0-11.[address] [facility] Comment on above: Performed By: #### C BC ####[facility] Jcyknewpzy[address] [place] [address]Dr. Emelina Navarro NM HEPATOBILIARY SCAN W EFon 05-02-2022 NM HEPATOBILIARY SCAN W EF Normal [facility] PROF 14(COMP METB)on 022 Albumin [Mass/Vol] 2.7 g/dL Critically low 3.4-5.0 [facility] Comment on above: Performed By: #### C MP ####[facility] Vysilvkhpq25[address] [place], [place] [address]Dr. Emelina Navarro Albumin/Globulin [Mass ratio] 0.7 {ratio} Normal [facility] Comment on above: Performed By: #### C MP ####[facility] Spdpqahuew3[address] [place] [address]Dr. Emelina Navarro ALP [Catalytic activity/Vol] 65 U/L Normal 46-116 [facility] Comment on above: Performed By: #### C MP ####[facility] Ybjveniqwc7535 [place] [address]Dr. Emelina Navarro ALT [Catalytic activity/Vol] 406 U/L Critically high 16-63 [facility] Comment on above: Performed By: #### C MP ####[facility] Vplhnjshvp6769 [place] [address]Dr. Emelina Navarro Anion gap [Moles/Vol] 8.1 mmol/L Normal [facility] Comment on above: Performed By: #### C MP ####[facility] Kxxdkjbksp2795 [place] [phone]. Emelina Navarro AST [Catalytic activity/Vol] 101 U/L Critically high 15-37 [facility] Comment on above: Performed By: #### C MP ####[facility] Wgaxzsxrlj9270 [place] [phone]. Emelina Navarro Bilirubin [Mass/Vol] 0.6 mg/dL Normal 0.2-1.0 [facility] Comment on above: Performed By: #### C MP ####[facility] Emhpypwsmi2622 [place] [phone]. Emelina Navarro Calcium [Mass/Vol] 7.7 mg/dL Critically low 8.5-10.1 [facility] Comment on above: Performed By: #### C MP ####[facility] Dqcxvgfdig[address] [place], [place] [address]Dr. Emelina Navarro Chloride [Moles/Vol] 104 mmol/L Normal 98-107 [facility] Comment on above: Performed By: #### C MP ####[facility] Wvnuyainyk87[address] [place], [place] [address]Dr. Emelina Navarro CO2 [Moles/Vol] 30.9 mmol/L Normal 21.0-32.0 [facility] Comment on above: Performed By: #### C MP ####[facility] Ixegchneuu[address] [place], [place] [address]Dr. Emelina Navarro Creatinine [Mass/Vol] 1.54 mg/dL Critically high 0.70-1.30 [facility] Comment on above: Performed By: #### C MP ####[facility] Drvqvxoyix7449 [place] [phone]. Emelina Navarro EGFR-AF GRENADIAN 55 mL/min/1.73m2 Critically low >=60 [facility] Comment on above: Performed By: #### C MP ####[facility] Ekmmnmbaic0[address] [place], [place] [address]Dr. Emelina Navarro EGFR-NON AF GRENADIAN 45 mL/min/1.73m2 Critically low >=60 [facility] Comment on above: Performed By: #### C MP ####[facility] Zoogopdvaa22[address] [place] [address]Dr. Emelina Navarro Globulin (S) [Mass/Vol] 3.8 g/dL Normal [facility] Comment on above: Performed By: #### C MP ####[facility] Vfrgekbqxe2492 [place] [address]Dr. Emelina Navarro Glucose [Mass/Vol] 177 mg/dL Critically high 74-106 [facility] Comment on above: Performed By: #### C MP ####[facility] Ugrlqpvfur9689[address] [place], [place] [address]Dr. Emelina Navarro Potassium [Moles/Vol] 4.0 mmol/L Normal 3.5-5.1 [facility] Comment on above: Performed By: #### C MP ####[facility] Wdxgbrdcri2375[address] [place], [place] [address]Dr. Emelina Navarro Protein [Mass/Vol] 6.5 g/dL Normal 6.4-8.2 [facility] Comment on above: Performed By: #### C MP ####[facility] Itsvwfgzny075[address] [place], [place] [address]Dr. Emelina Navarro Sodium [Moles/Vol] 139 mmol/L Normal 136-145 [facility] Comment on above: Performed By: #### C MP ####[facility] Wkiutfafno4525[address] [place], [place] [address]Dr. Emelina Navarro Urea nitrogen [Mass/Vol] 38.0 mg/dL Critically high 7.0-18.0 [facility] Comment on above: Performed By: #### C MP ####[facility] Jazewfgvdz774[address] [place], [place] [address]Dr. Emelina Navarro Urea nitrogen/Creatinine [Mass ratio] 24.7 mg/mg Normal [facility] Comment on above: Performed By: #### C MP ####[facility] Lfeglvpabl2189[address] [place], [place] [address]Dr. Emelina Ramon PROTIMEon 05-02-2022 INR Coag (PPP) [Relative time] 2.57 {INR} Normal [facility] Comment on above: Performed By: #### P T ####[facility] Ywxpuyfpbu0[address] [place] [address]Dr. Emelina Navarro INR GUIDELINES SEE BELOW Normal [facility] Comment on above: Result Comment: WENDY RED INR: 2.0 - 3.0 CONDITIONS NOT LISTED BELOW 2.5 - 3.5 FOR PROSTHETIC HEART VALVE REPLACEMENT 2.5 - 3.5 RECURRENT THROMBOSIS Performed By: #### P T ####[facility] Kcspnrzste83[address] [place], [place] [address]Dr. Emelina Navarro PT Coag (PPP) [Time] 26.1 s Critically high 9.0-11.6 [facility] Comment on above: Performed By: #### P T ####[facility] Hfindagfbs646[address] [place], [place] [address]Dr. Emelina Navarro CBC AUTO DIFFon 05-01-2022 BASO # 0.0 103/ul Normal 0.0-0.1 [facility] Comment on above: Performed By: #### C BC ####[facility] Kxjphipgqz86[address] [place], [place] [address]Dr. Emelina Navarro Basophils/100 WBC (Bld) 0.1 % Critically low 0.2-2.0 [facility] Comment on above: Performed By: #### C BC ####[facility] Iuggxcrroc2434[address] [place], [place] [address]Dr. Emelina Navarro EO # 0.0 103/ul Normal 0.0-0.7 [facility] Comment on above: Performed By: #### C BC ####[facility] Utzczcexbl[address] [place], [place] [address]Dr. Emelina Navarro Eosinophils/100 WBC (Bld) 0.0 % Critically low 0.9-7.0 [facility] Comment on above: Performed By: #### C BC ####[facility] Ejwzaaqypg6[address] [place], [place] [address]Dr. Emelina Navarro Erythrocyte distribution width (RBC) [Ratio] 16.5 % Critically high 11.0-15.0 [facility] Comment on above: Performed By: #### C BC ####[facility] Avqcjihtom8598 [place] [address]Dr. Awildanitza Navarro Hematocrit (Bld) [Volume fraction] 41.5 % Critically low 42.0-54.0 [facility] Comment on above: Performed By: #### C BC ####[facility] Jvhwbdtfyo1512 [place] [address]Dr. Emelina Navarro Hemoglobin (Bld) [Mass/Vol] 13.5 g/dL Critically low 14.0-18.0 [facility] Comment on above: Performed By: #### C BC ####[facility] Tkgdjemzhz5833 [place] [address]Dr. Emelina Navarro IG # 0.12 10e3/ul Critically high 0.00-0.03 [facility] Comment on above: Performed By: #### C BC ####[facility] Hgorksnyiy1452 [place] [address]Dr. Emelina Navarro IG % 0.7 % Critically high 0.0-0.5 [facility] Comment on above: Performed By: #### C BC ####[facility] Ijfutzgahp39[address] [place] [address]Dr. Emelina Navarro LYMPH # 0.8 103/ul Critically low 1.2-3.8 [facility] Comment on above: Performed By: #### C BC ####[facility] Nduuqtcrih3886 [place] [address]Dr. Emelina Navarro Lymphocytes/100 WBC (Bld) 4.7 % Critically low 20.5-60.0 [facility] Comment on above: Performed By: #### C BC ####[facility] Pcurusbswk25[address] [place] [address]Dr. Emelina Navarro MANUAL DIFF REQ NO Normal [facility] Comment on above: Performed By: #### C BC ####[facility] Whjshmffro26[address] [place], [place] [address]Dr. Emelina Navarro MCH (RBC) [Entitic mass] 28.9 pg Normal 25.9-34.0 [facility] Comment on above: Performed By: #### C BC ####[facility] Qerihawchg1823 [place] [phone]. Emelina Navarro MCHC (RBC) [Mass/Vol] 32.5 g/dL Normal 29.9-35.2 [facility] Comment on above: Performed By: #### C BC ####[facility] Gvlyldjelj2222 [place] [phone]. Emelina Ramon MCV (RBC) [Entitic vol] 88.9 fL Normal 80.0-94.0 [facility] Comment on above: Performed By: #### C BC ####[facility] Ipirosybyk8100[address] [place], [place] [address]Dr. Emelina Ramon MONO # 1.0 103/ul Critically high 0.3-0.8 [facility] Comment on above: Performed By: #### C BC ####[facility] Ksclarjpky[address] [place], [place] [address]Dr. Emelina Navarro Monocytes/100 WBC (Bld) 6.5 % Normal 1.7-12.0 [facility] Comment on above: Performed By: #### C BC ####[facility] Rjortoetet95[address] [place], [place] [address]Dr. Awildanitza Navarro NEUT # 14.1 103/ul Critically high 1.4-6.[address] [facility] Comment on above: Performed By: #### C BC ####[facility] Ufzjwamlcl[address] [place], [place] [address]Dr. Emelina Navarro Neutrophils/100 WBC (Bld) 88.0 % Critically high 43.0-75.0 [facility] Comment on above: Performed By: #### C BC ####[facility] Itvspvwtzq030[address] [place], [place] [address]Dr. Emelina Navarro Platelet mean volume (Bld) [Entitic vol] 9.9 fL Normal 9.5-13.5 [facility] Comment on above: Performed By: #### C BC ####[facility] Oucydsfanr35[address] [place], [place] [address]Dr. Emelina Navarro PLT 185 103/ul Normal 150-450 [facility] Comment on above: Performed By: #### C BC ####[facility] Dmpizxztkp9271 [place] [phone]. Emelina Navarro RBC 4.67 106/ul Critically low 4.70-6.10 [facility] Comment on above: Performed By: #### C BC ####[facility] Tkxetntvjt3589 [place] [phone]. Emelina Navarro WBC 16.1 103/ul Critically high 4.0-11.[address] [facility] Comment on above: Performed By: #### C BC ####[facility] Yrbyoqdpkt3571 [place] [phone]. Emelina Navarro LIVER PROFILEon 05-01-2022 Albumin/Globulin [Mass ratio] 0.7 {ratio} Normal [facility] Comment on above: Performed By: #### L IVER ####[facility] Mrhpmjhnsu1883 [place] [phone]. Emelina Navarro ALP [Catalytic activity/Vol] 71 U/L Normal 46-116 [facility] Comment on above: Performed By: #### L IVER ####[facility] Twkgonuvod4503 [place] [phone]. Emelina Navarro ALT [Catalytic activity/Vol] 558 U/L Critically high 16-63 [facility] Comment on above: Performed By: #### L IVER ####[facility] Qwhkislibf4962 [place] [phone]. Emelina Navarro AST [Catalytic activity/Vol] 220 U/L Critically high 15-37 [facility] Comment on above: Performed By: #### L IVER ####[facility] Jdujesiyhy6193 [place] [phone]. Emelina Ramon BILI, CONJUGATED 0.2 mg/dL Normal 0.0-0.[address] [facility] Comment on above: Performed By: #### L IVER ####[facility] Lvftlwkvyw0998 [place] [phone]. Emelina Navarro Bilirubin [Mass/Vol] 0.5 mg/dL Normal 0.2-1.0 [facility] Comment on above: Performed By: #### L IVER ####[facility] Bhcgqpilln2044 [place] [address]Dr. Emelina Navarro Globulin (S) [Mass/Vol] 3.9 g/dL Normal [facility] Comment on above: Performed By: #### L IVER ####[facility] Tjzmzayapi8[address] [place] [address]Dr. Emelina Navarro Protein [Mass/Vol] 6.8 g/dL Normal 6.4-8.2 [facility] Comment on above: Performed By: #### L IVER ####[facility] Llgeahduti2782 [place] [address]Dr. Emelina Navarro POINT OF CARE GLUCOSEon 04-19 Glucose [Mass/Vol] 205 mg/dL Critically high 74-106 [facility] Comment on above: Performed By: #### P OCGLUC ####[facility] Rsotxnhylu39[address] [place], [place] [address]Dr. Emelina Navarro PROF 14(COMP METB)on 022 Albumin [Mass/Vol] 2.9 g/dL Critically low 3.4-5.0 [facility] Comment on above: Performed By: #### C MP ####[facility] Aqprhryieq[address] [place], [place] [address]Dr. Emelina Navarro Performed By: #### L IVER ####[facility] Rikzweusvj6056 [place] [address]Dr. Eemlina Navarro Albumin/Globulin [Mass ratio] 0.8 {ratio} Normal [facility] Comment on above: Performed By: #### C MP ####[facility] Pzxzfquotv6925 [place] [address]Dr. Emelina Navarro ALP [Catalytic activity/Vol] 70 U/L Normal 46-116 [facility] Comment on above: Performed By: #### C MP ####[facility] Wfauhaxcnn7355 [place] [address]Dr. Emelina Navarro ALT [Catalytic activity/Vol] 552 U/L Critically high 16-63 [facility] Comment on above: Performed By: #### C MP ####[facility] Loihhgijrv2311 [place], [place] [address]Dd. Emelina Navarro Anion gap [Moles/Vol] 14.2 mmol/L Normal [facility] Comment on above: Performed By: #### C MP ####[facility] Mhuryiurra8470 [place] [phone]. Emelina Navarro AST [Catalytic activity/Vol] 214 U/L Critically high 15-37 [facility] Comment on above: Performed By: #### C MP ####[facility] Zdpzanuevr6898 [place] [phone]. Emelina Navarro Bilirubin [Mass/Vol] 0.6 mg/dL Normal 0.2-1.0 [facility] Comment on above: Performed By: #### C MP ####[facility] Fctynuxcok90[address] [place] [address]Dr. Emelina Navarro Calcium [Mass/Vol] 7.9 mg/dL Critically low 8.5-10.1 [facility] Comment on above: Performed By: #### C MP ####[facility] Awsggiypbq2347 [place] [phone]. Emelina Navarro Chloride [Moles/Vol] 103 mmol/L Normal 98-107 [facility] Comment on above: Performed By: #### C MP ####[facility] Lioslywgsb3642 [place] [phone]. Emelina Navarro CO2 [Moles/Vol] 25.0 mmol/L Normal 21.0-32.[address] [facility] Comment on above: Performed By: #### C MP ####[facility] Hlhqrnyubl4369 [place] [phone]. Emelina Navarro Creatinine [Mass/Vol] 1.58 mg/dL Critically high 0.70-1.30 [facility] Comment on above: Performed By: #### C MP ####[facility] Knqxdkbgiv7254 [place] [phone]. Emelina Navarro EGFR-AF GRENADIAN 53 mL/min/1.73m2 Critically low >=60 [facility] Comment on above: Performed By: #### C MP ####[facility] Talccepwxu5502 [place], [place] [address]Gd. Emelina Navarro EGFR-NON AF GRENADIAN 44 mL/min/1.73m2 Critically low >=60 [facility] Comment on above: Performed By: #### C MP ####[facility] Vlfwhowsht3441 [place], [place] [address]Pl. Emelina Navarro Globulin (S) [Mass/Vol] 3.8 g/dL Normal [facility] Comment on above: Performed By: #### C MP ####[facility] Hhthvanijp7283 [place] [phone]. Emelina Navarro Glucose [Mass/Vol] 267 mg/dL Critically high 74-106 T [facility] Comment on above: Performed By: #### C MP ####[facility] Bjaphvxjaj5221 [place] [phone]. Emelina Navarro Potassium [Moles/Vol] 3.2 mmol/L Critically low 3.5-5.1 [facility] Comment on above: Performed By: #### C MP ####[facility] Nhygukuihm7275 [place] [phone]. Emelina Navarro Protein [Mass/Vol] 6.7 g/dL Normal 6.4-8.2 [facility] Comment on above: Performed By: #### C MP ####[facility] Pqqqpkxgpc3700 [place] [phone]. Emelina Navarro Sodium [Moles/Vol] 139 mmol/L Normal 136-145 [facility] Comment on above: Performed By: #### C MP ####[facility] Ablzejntda7175 [place] [phone]. Emelina Navarro Urea nitrogen [Mass/Vol] 43.0 mg/dL Critically high 7.0-18.0 [facility] Comment on above: Performed By: #### C MP ####[facility] Rcdzptissq6284 [place] [phone]. Emelina Navarro Urea nitrogen/Creatinine [Mass ratio] 27.2 mg/mg Normal [facility] Comment on above: Performed By: #### C MP ####[facility] Dyrmfdgklg4235 [place] [address]DrWesley Emelina Ramon PROTIMEon 05-01-2022 INR Coag (PPP) [Relative time] 2.57 {INR} Normal [facility] Comment on above: Performed By: #### P T ####[facility] Bncibztkcd[address] [place], [place] [address]DrWesley Navarro INR GUIDELINES SEE BELOW Normal [facility] Comment on above: Result Comment: WENDY RED INR: 2.0 - 3.0 CONDITIONS NOT LISTED BELOW 2.5 - 3.5 FOR PROSTHETIC HEART VALVE REPLACEMENT 2.5 - 3.5 RECURRENT THROMBOSIS Performed By: #### P T ####[facility] Jgpvuohwaq[address] [place], [place] [address]DrWesley Navarro PT Coag (PPP) [Time] 26.1 s Critically high 9.0-11.6 [facility] Comment on above: Performed By: #### P T ####[facility] Uttsfilhue[address] [place], [place] [address]DrWesley Navarro CBC AUTO DIFFon 04-30-2022 BASO # 0.0 103/ul Normal 0.0-0.1 [facility] Comment on above: Performed By: #### C BC ####[facility] Eibjjbwcus60[address] [place], [place] [address]DrWesley Navarro Basophils/100 WBC (Bld) 0.1 % Critically low 0.2-2.0 [facility] Comment on above: Performed By: #### C BC ####[facility] Devlbdyyiv33[address] [place], [place] [address]DrWesley Navarro EO # 0.0 103/ul Normal 0.0-0.7 [facility] Comment on above: Performed By: #### C BC ####[facility] Oyeyxgmapd68[address] [place], [place] [address]DrWesley Navarro Eosinophils/100 WBC (Bld) 0.0 % Critically low 0.9-7.0 [facility] Comment on above: Performed By: #### C BC ####[facility] Dhevhcywiw8287[address] [place], [place] [address]Dr. Emelina Navarro Erythrocyte distribution width (RBC) [Ratio] 16.4 % Critically high 11.0-15.0 [facility] Comment on above: Performed By: #### C BC ####[facility] Knxscndsas4236 [place] [address]Dr. Emelina Navarro Hematocrit (Bld) [Volume fraction] 40.9 % Critically low 42.0-54.0 [facility] Comment on above: Performed By: #### C BC ####[facility] Hezgdrywqh3080 [place] [address]Dr. Emelina Navarro Hemoglobin (Bld) [Mass/Vol] 13.3 g/dL Critically low 14.0-18.0 [facility] Comment on above: Performed By: #### C BC ####[facility] Tftwrvuuuu6967 [place] [address]Dr. Emelina Ramon IG # 0.11 10e3/ul Critically high 0.00-0.03 [facility] Comment on above: Performed By: #### C BC ####[facility] Etsdsuvrhu59[address] [place], [place] [address]Dr. Emelina Ramon IG % 0.5 % Normal 0.0-0.5 [facility] Comment on above: Performed By: #### C BC ####[facility] Agxygrxmvb9267[address] [place], [place] [address]Dr. Emelina Ramon LYMPH # 0.8 103/ul Critically low 1.2-3.8 [facility] Comment on above: Performed By: #### C BC ####[facility] Wuikroasld825[address] [place], [place] [address]Dr. Awildanitza Navarro Lymphocytes/100 WBC (Bld) 3.9 % Critically low 20.5-60.0 [facility] Comment on above: Performed By: #### C BC ####[facility] Xogithazjs587[address] [place], [place] [address]Dr. Awildanitza Navarro MANUAL DIFF REQ NO Normal [facility] Comment on above: Performed By: #### C BC ####[facility] Papqdzgzop400[address] [place], [place] [address]Dr. Emelina Navarro MCH (RBC) [Entitic mass] 29.0 pg Normal 25.9-34.0 [facility] Comment on above: Performed By: #### C BC ####[facility] Kpwtsimzoq7122 [place] [address]Dr. Emelina Navarro MCHC (RBC) [Mass/Vol] 32.5 g/dL Normal 29.9-35.2 [facility] Comment on above: Performed By: #### C BC ####[facility] Dvawxbsmud3638 [place] [phone]. Emelina Navarro MCV (RBC) [Entitic vol] 89.1 fL Normal 80.0-94.0 [facility] Comment on above: Performed By: #### C BC ####[facility] Jkdigpbnsn6645 [place] [address]Dr. Emelina Navarro MONO # 0.9 103/ul Critically high 0.3-0.8 [facility] Comment on above: Performed By: #### C BC ####[facility] Dfeizgbmjc700[address] [place], [place] [address]Dr. Emelina Ramon Monocytes/100 WBC (Bld) 4.2 % Normal 1.7-12.0 [facility] Comment on above: Performed By: #### C BC ####[facility] Glbutplqdm665[address] [place], [place] [address]Dr. Emelina Navarro NEUT # 18.5 103/ul Critically high 1.4-6.[address] [facility] Comment on above: Performed By: #### C BC ####[facility] Lsajpjofyr7[address] [place], [place] [phone]. Emelina Ramon Neutrophils/100 WBC (Bld) 91.3 % Critically high 43.0-75.0 [facility] Comment on above: Performed By: #### C BC ####[facility] Jngejjinve5337[address] [place], [place] [address]Dr. Emelina Ramon Platelet mean volume (Bld) [Entitic vol] 10.9 fL Normal 9.5-13.5 [facility] Comment on above: Performed By: #### C BC ####[facility] Iasnhfpauv6784 [place] [phone]. Emelina Navarro PLT 162 103/ul Normal 150-450 [facility] Comment on above: Performed By: #### C BC ####[facility] Umrkafjexp5144 [place] [address]Dr. Emelina Navarro RBC 4.59 106/ul Critically low 4.70-6.10 [facility] Comment on above: Performed By: #### C BC ####[facility] Opvuskinbh2959 [place] [address]Dr. Emelina Navarro WBC 20.3 103/ul Critically high 4.0-11.0 [facility] Comment on above: Performed By: #### C BC ####[facility] Dhhftkfjwe[address] [place], [place] [address]Dr. Emelina Navarro PROF 14(COMP METB)on 022 Albumin [Mass/Vol] 2.8 g/dL Critically low 3.4-5.0 [facility] Comment on above: Performed By: #### C MP ####[facility] Eifvulrodo27[address] [place], [place] [address]Dr. Emelina Navarro Albumin/Globulin [Mass ratio] 0.7 {ratio} Normal [facility] Comment on above: Performed By: #### C MP ####[facility] Cofskcysnj[address] [place], [place] [address]Dr. Emelina Navarro ALP [Catalytic activity/Vol] 65 U/L Normal 46-116 [facility] Comment on above: Performed By: #### C MP ####[facility] Kvdkegrmif[address] [place], [place] [address]Dr. Emelina Navarro ALT [Catalytic activity/Vol] 467 U/L Critically high 16-63 [facility] Comment on above: Performed By: #### C MP ####[facility] Tnnmcewlxq09[address] [place], [place] [address]Dr. Emelina Navarro Anion gap [Moles/Vol] 15.3 mmol/L Normal [facility] Comment on above: Performed By: #### C MP ####[facility] Zfcjrgnddr6309 [place] [phone]. Emelina Navarro AST [Catalytic activity/Vol] 239 U/L Critically high 15-37 [facility] Comment on above: Performed By: #### C MP ####[facility] Uaixrjpyqa1112 [place] [phone]. Emelina Navarro Bilirubin [Mass/Vol] 0.7 mg/dL Normal 0.2-1.0 [facility] Comment on above: Performed By: #### C MP ####[facility] Glfabaspob5761 [place] [address]Dr. Emelina Navarro Calcium [Mass/Vol] 7.9 mg/dL Critically low 8.5-10.1 [facility] Comment on above: Performed By: #### C MP ####[facility] Wdgecvwubp13[address] [place], [place] [address]Dr. Emelina Navarro Chloride [Moles/Vol] 106 mmol/L Normal 98-107 [facility] Comment on above: Performed By: #### C MP ####[facility] Ccuollarcu[address] [place], [place] [address]Dr. Emelina Navarro CO2 [Moles/Vol] 23.3 mmol/L Normal 21.0-32.[address] [facility] Comment on above: Performed By: #### C MP ####[facility] Uhfzvavswk5049 [place] [phone]. Emelina Navarro Creatinine [Mass/Vol] 1.71 mg/dL Critically high 0.70-1.30 [facility] Comment on above: Performed By: #### C MP ####[facility] Ayfyftcxyw1329 [place] [phone]. Emelina Navarro EGFR-AF GRENADIAN 49 mL/min/1.73m2 Critically low >=60 [facility] Comment on above: Performed By: #### C MP ####[facility] Uyyzncidmt6903 [place] [phone]. Emelina Navarro EGFR-NON AF GRENADIAN 40 mL/min/1.73m2 Critically low >=60 [facility] Comment on above: Performed By: #### C MP ####[facility] Zlrkipjjvf6473 [place] [phone]. Emelina Navarro Globulin (S) [Mass/Vol] 3.9 g/dL Normal [facility] Comment on above: Performed By: #### C MP ####[facility] Sfhzkebebl8661 [place] [address]Dr. Emelina Navarro Glucose [Mass/Vol] 233 mg/dL Critically high 74-106 T [facility] Comment on above: Performed By: #### C MP ####[facility] Fkpcquyuxx8338 [place] [address]Dr. Emelina Navarro Potassium [Moles/Vol] 3.6 mmol/L Normal 3.5-5.1 [facility] Comment on above: Performed By: #### C MP ####[facility] Qyhtrlehze1698 [place] [address]Dr. Emelina Navarro Protein [Mass/Vol] 6.7 g/dL Normal 6.4-8.2 [facility] Comment on above: Performed By: #### C MP ####[facility] Fzzturnhoy069[address] [place], [place] [address]Dr. Emelina Navarro Sodium [Moles/Vol] 141 mmol/L Normal 136-145 [facility] Comment on above: Performed By: #### C MP ####[facility] Scaxfayews7430[address] [place], [place] [address]Dr. Emelina Navarro Urea nitrogen [Mass/Vol] 46.0 mg/dL Critically high 7.0-18.0 [facility] Comment on above: Performed By: #### C MP ####[facility] Pqaqpykxao9623 [place] [address]Dr. Emelina Navarro Urea nitrogen/Creatinine [Mass ratio] 26.9 mg/mg Normal [facility] Comment on above: Performed By: #### C MP ####[facility] Awqzhdanja384[address] [place], [place] [address]Dr. Eemlina Navarro XR CHEST 2 Von 04-30-2022 XR CHEST 2 V Normal [facility] CBC AUTO DIFFon 04-29-2022 BASO # 0.0 103/ul Normal 0.0-0.1 [facility] Comment on above: Performed By: #### C BC ####[facility] Iwlmspvvor3439 [place] [address]Dr. Awildanitza Navarro Basophils/100 WBC (Bld) 0.1 % Critically low 0.2-2.0 [facility] Comment on above: Performed By: #### C BC ####[facility] Eivibzhodh5[address] [place], [place] [address]DrWesley Navarro EO # 0.0 103/ul Normal 0.0-0.7 [facility] Comment on above: Performed By: #### C BC ####[facility] Ihfxmechdp700[address] [place], [place] [address]Dr. Emelina Navarro Eosinophils/100 WBC (Bld) 0.0 % Critically low 0.9-7.0 [facility] Comment on above: Performed By: #### C BC ####[facility] Jtsptvvvnk8[address] [place], [place] [address]Dr. Emelina Navarro Erythrocyte distribution width (RBC) [Ratio] 16.2 % Critically high 11.0-15.0 [facility] Comment on above: Performed By: #### C BC ####[facility] Maigkmuqbk823[address] [place], [place] [address]Dr. Emelina Navarro Hematocrit (Bld) [Volume fraction] 40.6 % Critically low 42.0-54.0 [facility] Comment on above: Performed By: #### C BC ####[facility] Ujhdbczeie920[address] [place], [place] [address]Dr. Emelina Navarro Hemoglobin (Bld) [Mass/Vol] 13.2 g/dL Critically low 14.0-18.0 [facility] Comment on above: Performed By: #### C BC ####[facility] Ehwortkeaw8[address] [place], [place] [address]DrWesley Navarro IG # 0.11 10e3/ul Critically high 0.00-0.03 [facility] Comment on above: Performed By: #### C BC ####[facility] Iyocdhildf0664[address] [place], [place] [address]Dr. Emelina Navarro IG % 0.6 % Critically high 0.0-0.5 [facility] Comment on above: Performed By: #### C BC ####[facility] Ivfebmnhdj0463 [place] [address]DrWesley Navarro LYMPH # 1.1 103/ul Critically low 1.2-3.8 [facility] Comment on above: Performed By: #### C BC ####[facility] Ujqdeijhim9411 [place] [address]Dr. Emelina Navarro Lymphocytes/100 WBC (Bld) 5.6 % Critically low 20.5-60.0 [facility] Comment on above: Performed By: #### C BC ####[facility] Zdmcwnpxmo1524[address] [place], [place] [address]Dr. Emelina Navarro MANUAL DIFF REQ NO Normal [facility] Comment on above: Performed By: #### C BC ####[facility] Tgublidbkm289[address] [place], [place] [address]Dr. Emelina Navarro MCH (RBC) [Entitic mass] 29.1 pg Normal 25.9-34.0 [facility] Comment on above: Performed By: #### C BC ####[facility] Hyjzcbvkhe719[address] [place], [place] [address]Dr. Emelina Navarro MCHC (RBC) [Mass/Vol] 32.5 g/dL Normal 29.9-35.2 [facility] Comment on above: Performed By: #### C BC ####[facility] Htgaidvnxe08[address] [place], [place] [address]Dr. Emelina Navarro MCV (RBC) [Entitic vol] 89.4 fL Normal 80.0-94.0 [facility] Comment on above: Performed By: #### C BC ####[facility] Aruztitjyl95[address] [place], [place] [address]DrWesley Navarro MONO # 0.6 103/ul Normal 0.3-0.8 [facility] Comment on above: Performed By: #### C BC ####[facility] Ciuxiskuth2629[address] [place], [place] [address]Dr. Emelina Navraro Monocytes/100 WBC (Bld) 3.2 % Normal 1.7-12.0 [facility] Comment on above: Performed By: #### C BC ####[facility] Gkegsmiijs[address] [place] [address]Dr. Emelina Navarro NEUT # 17.4 103/ul Critically high 1.4-6.[address] [facility] Comment on above: Performed By: #### C BC ####[facility] Votkktoint4141 [place] [address]Dr. Emelina Navarro Neutrophils/100 WBC (Bld) 90.5 % Critically high 43.0-75.0 [facility] Comment on above: Performed By: #### C BC ####[facility] Swwsupjyur5579 [place] [address]Dr. Emelina Navarro Platelet mean volume (Bld) [Entitic vol] 10.3 fL Normal 9.5-13.5 [facility] Comment on above: Performed By: #### C BC ####[facility] Nzdmzjnxeo5[address] [place], [place] [address]Dr. Emelina Navarro PLT 175 103/ul Normal 150-450 [facility] Comment on above: Performed By: #### C BC ####[facility] Ubgxspvtlp908[address] [place], [place] [address]Dr. Emelina Navarro RBC 4.54 106/ul Critically low 4.70-6.10 [facility] Comment on above: Performed By: #### C BC ####[facility] Ajolmvhtyr9981 [place] [phone]. Emelina Navarro WBC 19.2 103/ul Critically high 4.0-11.[address] [facility] Comment on above: Performed By: #### C BC ####[facility] Ecjmzsklmk[address] [place], [place] [address]Dr. Emelina Navarro Covid-19 PCR (CVDTB)on 04-19 SARS-CoV-2 (COVID-19) RNA RADHA+probe Ql (Unsp spec) Not detected Normal NOT DETECTED [facility] Comment on above: Result Comment: When [...] for this test is supported by the [place] of Health and Human Service's declaration that [...] be used). Performed By: #### C VDTB ####[facility] Piydiafkqr525[address] [place], [place] [address]Dr. Emelina Navarro LIPASEon 04-29-2022 Lipase [Catalytic activity/Vol] 74.0 U/L Normal 73.0-393.0 [facility] Comment on above: Performed By: #### L IPA ####[facility] Fvoqjgnykz[address] [place], [place] [address]DrWesley Navarro PROF 14(COMP METB)on 022 Albumin [Mass/Vol] 2.8 g/dL Critically low 3.4-5.0 [facility] Comment on above: Performed By: #### C MP ####[facility] Gjdjvscgmb[address] [place], [place] [address]DrWesley Navarro Albumin/Globulin [Mass ratio] 0.7 {ratio} Normal [facility] Comment on above: Performed By: #### C MP ####[facility] Pwjzmbncnl[address] [place], [place] [address]DrWesley Navarro ALP [Catalytic activity/Vol] 70 U/L Normal 46-116 [facility] Comment on above: Performed By: #### C MP ####[facility] Zqpsjthdis7[address] [place], [place] [address]DrWesley Navarro ALT [Catalytic activity/Vol] 456 U/L Critically high 16-63 [facility] Comment on above: Performed By: #### C MP ####[facility] Xslzuqkrua6137 [place] [phone]. Emelina Navarro Anion gap [Moles/Vol] 14.7 mmol/L Normal [facility] Comment on above: Performed By: #### C MP ####[facility] Picupjssht3915 [place] [phone]. Emelina Navarro AST [Catalytic activity/Vol] 388 U/L Critically high 15-37 [facility] Comment on above: Performed By: #### C MP ####[facility] Lzujulvmgj0785 [place] [phone]. Emelina Ramon Bilirubin [Mass/Vol] 1.2 mg/dL Critically high 0.2-1.0 [facility] Comment on above: Performed By: #### C MP ####[facility] Haqjtabopr5639 [place] [phone]. Emelina Ramon Calcium [Mass/Vol] 7.8 mg/dL Critically low 8.5-10.1 [facility] Comment on above: Performed By: #### C MP ####[facility] Ewwbmqhkwe7929 [place] [address]Dr. Emelina Ramon Chloride [Moles/Vol] 103 mmol/L Normal 98-107 [facility] Comment on above: Performed By: #### C MP ####[facility] Edrpkmszrm6418 [place] [phone]. Emelina Ramon CO2 [Moles/Vol] 20.8 mmol/L Critically low 21.0-32.0 [facility] Comment on above: Performed By: #### C MP ####[facility] Dfvvxehsqy6985 [place] [phone]. Emelina Navarro Creatinine [Mass/Vol] 1.79 mg/dL Critically high 0.70-1.30 [facility] Comment on above: Performed By: #### C MP ####[facility] Kjkrqbujwh4382 [place] [phone]. Emelina Ramon EGFR-AF GRENADIAN 46 mL/min/1.73m2 Critically low >=60 [facility] Comment on above: Performed By: #### C MP ####[facility] Lqzghaqclh22[address] [place], [place] [address]Tc. Emelina Navarro EGFR-NON AF GRENADIAN 38 mL/min/1.73m2 Critically low >=60 [facility] Comment on above: Performed By: #### C MP ####[facility] Pvyxlthaqc3760 [place], [place] [address]Ea. Emelina Navarro Globulin (S) [Mass/Vol] 3.9 g/dL Normal [facility] Comment on above: Performed By: #### C MP ####[facility] Ojufytcelw7201 [place] [phone]. Emelina Navarro Glucose [Mass/Vol] 313 mg/dL Critically high 74-106 T [facility] Comment on above: Performed By: #### C MP ####[facility] Wjflpacmix3800 [place] [phone]. Emelina Ramon Potassium [Moles/Vol] 3.5 mmol/L Normal 3.5-5.1 [facility] Comment on above: Performed By: #### C MP ####[facility] Rghoudhtmx8892 [place] [phone]. Emelina Navarro Protein [Mass/Vol] 6.7 g/dL Normal 6.4-8.2 [facility] Comment on above: Performed By: #### C MP ####[facility] Itufyzuhcn1536 [place] [phone]. Emelina Navarro Sodium [Moles/Vol] 135 mmol/L Critically low 136-145 [facility] Comment on above: Performed By: #### C MP ####[facility] Cfjnaoxuwl9360 [place], [place] [address]Mc. Emelina Ramon Urea nitrogen [Mass/Vol] 41.0 mg/dL Critically high 7.0-18.0 [facility] Comment on above: Performed By: #### C MP ####[facility] Qfymhjdowz6511 [place], [place] [address]Du. Awildanitza Ramon Urea nitrogen/Creatinine [Mass ratio] 22.9 mg/mg Normal [facility] Comment on above: Performed By: #### C MP ####[facility] Tfhyasjtay50[address] [place] [address]Dr. Emelina Navarro US SINGLE QUAD RT UPPERon US SINGLE QUAD RT UPPER Normal [facility] BLOOD GASES BTYon 04-28-2022 02 MODE NASAL CANNULA Normal [facility] Comment on above: Result Comment: rese rvoir cannula Performed By: #### A BG ####[facility] Djmqrkfyyr40[address] [place], [place] [address]Dr. Emelina Navarro ALLENS TEST Positive Normal [facility] Comment on above: Performed By: #### A BG ####[facility] Gmgrhwjeqd[address] [place], [place] [address]Dr. Emelina Navarro Base excess Calc (Bld) [Moles/Vol] -6.6000 mmol/L Critically low -2.0-2.0 [facility] Comment on above: Performed By: #### A BG ####[facility] Mhgcthjtor4[address] [place], [place] [address]Dr. Emelina Navarro BIPAP PRESSURE Normal [facility] Comment on above: Performed By: #### A BG ####[facility] Buhjdotnwc9[address] [place], [place] [address]Dr. Emelina Navarro CO2 [Moles/Vol] 34.0 mmol/L Critically high 23.0-28.0 [facility] Comment on above: Performed By: #### A BG ####[facility] Zyfahedblt2[address] [place], [place] [address]Dr. Emelina Navarro CPAP Normal [facility] Comment on above: Performed By: #### A BG ####[facility] Fiwtnghdhj03[address] [place], [place] [address]Dr. Emelina Navarro FIO2 Normal [facility] Comment on above: Performed By: #### A BG ####[facility] Nvjztyhzx[address] [place], [place] [address]Dr. Emelina Navarro HCO3 (Bld) [Moles/Vol] 20.5 mmol/L Critically low 22.0-26.0 [facility] Comment on above: Performed By: #### A BG ####[facility] [address] [place] [address]Dr. Emelina Navarro LPM 5 Normal [facility] Comment on above: Performed By: #### A BG ####[facility] Hnpdwctguh65[address] [place] [address]Dr. Emelina Navarro MINUTE VOLUME Normal [facility] Comment on above: Performed By: #### A BG ####[facility] Bvcyvpcnad[address] [place] [address]Dr. Emelina Navarro Oxygen (Bld) [Partial pressure] 62.0 mm[Hg] Critically low 80.0-100.0 [facility] Comment on above: Performed By: #### A BG ####[facility] Lmgedvafpe74[address] [place], [place] [address]Dr. Emelina Navarro Oxygen saturation in Blood 92.6 % Critically low 95.0-100.0 [facility] Comment on above: Performed By: #### A BG ####[facility] Eicermnjce[address] [place], [place] [address]Dr. Emelina Navarro PCO2 25.7 mmHg Critically low 35.0-45.0 [facility] Comment on above: Performed By: #### A BG ####[facility] Youffkgqph08[address] [place], [place] [address]Dr. Emelina Navarro PEEP Normal [facility] Comment on above: Performed By: #### A BG ####[facility] Iojqgvwzxo[address] [place], [place] [address]Dr. Emelina Navarro pH (Bld) 7.443 [pH] Normal 7.350-7.45 0 [facility] Comment on above: Performed By: #### A BG ####[facility] Znwgdkjqir66[address] [place], [place] [address]Dr. Emelina Navarro PIP Dudley [facility] Comment on above: Performed By: #### A BG ####[facility] Jvuaiynsju8[address] [place], [place] [address]Dr. Emelina Navarro PS Normal [facility] Comment on above: Performed By: #### A BG ####[facility] [address]uyqdiub[address] [place] [id number]. Emelina Navarro PUNCTURE SITE LR Normal [facility] Comment on above: Performed By: #### A BG ####[facility] Yufkaaprvi[address] [place] [address]Dr. Emelina Navarro RATE Normal [facility] Comment on above: Performed By: #### A BG ####[facility] Nrjfxutuvd70[address] [place] [address]Dr. Emelina Navarro VENT MODE Normal [facility] Comment on above: Performed By: #### A BG ####[facility] Nvyfgmnnhc0[address] [place] [address]Dr. Emelina Navarro VT [facility] Comment on above: Performed By: #### A BG ####[facility] Srfixrtxsz6966 [place] [address]Dr. Emelina Navarro BNPon 04-28-2022 Natriuretic peptide B (Bld) [Mass/Vol] 06604.0 pg/mL Critically high <=900.0 [facility] Comment on above: Performed By: #### C MP, BNP, CMADM ####[facility] Wlyhnmxnco[address] [place] [address]Dr. Emelina Navarro CARDIAC IMTIAZ ADMITon 022 CK [Catalytic activity/Vol] 86 U/L Normal 39-308 [facility] Comment on above: Performed By: #### C MP, BNP, CMADM ####[facility] Egepjbfwcy2[address] [place] [address]Dr. Emelina Navarro CK.MB [Mass/Vol] 1.41 ng/mL Normal <=3.60 [facility] Comment on above: Performed By: #### C MP, BNP, CMADM ####[facility] Rvvnpturaf13[address] [place], [place] [address]Dr. Emelina Navarro HSTROP 63.7 pg/mL Normal 4.0-76.1 [facility] Comment on above: Result Comment: CUT- OFF POINTS HAVE BEEN ESTABLISHED BASED ON THE FOURTH UNIVERSAL DEFINITIONS OF MYOCARDIALINFARCTION. THE UPPER REFERENCE LIMIT (URL) OF TROPONIN, DEFINED THE 99TH PERCENTILE OFcTnI DISTRIBUTION IN A REFERENCE POPULATION, HAS BEEN CONFIRMED THE DECISION THRESHOLDFOR ND DIAGNOSIS. Performed By: #### C MP, BNP, CMADM ####[facility] Jmvtswpger0[address] [place] [address]Dr. Emelina Navarro URBANO 276 ng/mL Critically high 16-96 [facility] Comment on above: Performed By: #### C MP, BNP, CMADM ####[facility] Xumubthpqt[address] [place] [address]Dr. Awildanitza Navarro CBC AUTO DIFFon 04-28-2022 BASO # 0.0 103/ul Normal 0.0-0.1 [facility] Comment on above: Performed By: #### C BC ####[facility] Gysfgsabvm69[address] [place], [place] [address]Dr. Emelina Navarro Basophils/100 WBC (Bld) 0.2 % Normal 0.2-2.0 [facility] Comment on above: Performed By: #### C BC ####[facility] Vqfoyxxtrf39[address] [place], [place] [address]Dr. Emelina Navarro EO # 0.0 103/ul Normal 0.0-0.7 [facility] Comment on above: Performed By: #### C BC ####[facility] Hxjkbwpojc[address] [place], [place] [address]Dr. Emelina Navarro Eosinophils/100 WBC (Bld) 0.1 % Critically low 0.9-7.0 [facility] Comment on above: Performed By: #### C BC ####[facility] Igpygcudoj9695[address] [place], [place] [address]Dr. Emelina Navarro Erythrocyte distribution width (RBC) [Ratio] 16.5 % Critically high 11.0-15.0 [facility] Comment on above: Performed By: #### C BC ####[facility] Ttninuzlkx44[address] [place], [place] [address]Dr. Emelina Navarro Hematocrit (Bld) [Volume fraction] 45.2 % Normal 42.0-54.0 [facility] Comment on above: Performed By: #### C BC ####[facility] Oafughbesg[address] [place] [address]Dr. Emelina Navarro Hemoglobin (Bld) [Mass/Vol] 14.8 g/dL Normal 14.0-18.0 [facility] Comment on above: Performed By: #### C BC ####[facility] Vvxvloekue4539 [place] [address]Dr. Emelina Navarro IG # 0.14 10e3/ul Critically high 0.00-0.03 [facility] Comment on above: Performed By: #### C BC ####[facility] Anjzddpiol17[address] [place] [address]Dr. Emelina Navarro IG % 0.9 % Critically high 0.0-0.5 [facility] Comment on above: Performed By: #### C BC ####[facility] Fliicvojcx0153 [place] [address]Dr. Emelina Navarro LYMPH # 0.8 103/ul Critically low 1.2-3.8 [facility] Comment on above: Performed By: #### C BC ####[facility] Ndsbwyeqgz9264 [place] [address]Dr. Emelina Navarro Lymphocytes/100 WBC (Bld) 5.1 % Critically low 20.5-60.0 [facility] Comment on above: Performed By: #### C BC ####[facility] Kieyrqlkxf50[address] [place] [address]Dr. Emelina Navarro MANUAL DIFF REQ NO Normal [facility] Comment on above: Performed By: #### C BC ####[facility] Wgxzeqzmft6903 [place] [address]Dr. Emelina Navarro MCH (RBC) [Entitic mass] 29.3 pg Normal 25.9-34.0 [facility] Comment on above: Performed By: #### C BC ####[facility] Rrvtgmshjq[address] [place], [place] [address]Dr. Emelina Navarro MCHC (RBC) [Mass/Vol] 32.7 g/dL Normal 29.9-35.2 [facility] Comment on above: Performed By: #### C BC ####[facility] Dyhnsejctv4732 [place] [address]Dr. Emelina Navarro MCV (RBC) [Entitic vol] 89.5 fL Normal 80.0-94.0 [facility] Comment on above: Performed By: #### C BC ####[facility] Buadgbuarb8947 [place] [address]Dr. Emelina Navarro MONO # 1.1 103/ul Critically high 0.3-0.8 [facility] Comment on above: Performed By: #### C BC ####[facility] Ltwjuelzdp2333 [place] [address]Dr. Emelina Ramon Monocytes/100 WBC (Bld) 7.0 % Normal 1.7-12.0 [facility] Comment on above: Performed By: #### C BC ####[facility] Psfthxkmfh[address] [place], [place] [address]Dr. Emelina Navarro NEUT # 13.3 103/ul Critically high 1.4-6.[address] [facility] Comment on above: Performed By: #### C BC ####[facility] Zrbvssflmp[address] [place], [place] [address]Dr. Emelina Ramon Neutrophils/100 WBC (Bld) 86.7 % Critically high 43.0-75.0 [facility] Comment on above: Performed By: #### C BC ####[facility] Euynodmkxi14[address] [place], [place] [address]Dr. Emelina Ramon Platelet mean volume (Bld) [Entitic vol] 10.7 fL Normal 9.5-13.5 [facility] Comment on above: Performed By: #### C BC ####[facility] Ivivjtnzsh4[address] [place] [id number]. Emelina Ramon PLT 200 103/ul Normal 150-450 [facility] Comment on above: Performed By: #### C BC ####[facility] Ehlehlfpvp10[address] [place], [place] [address]Dr. Awildanitza Ramon RBC 5.05 106/ul Normal 4.70-6.10 [facility] Comment on above: Performed By: #### C BC ####[facility] Sfarqkmrzg[address] [place], [place] [id number]. Emelina Navarro WBC 15.4 103/ul Critically high 4.0-11.[address] [facility] Comment on above: Performed By: #### C BC ####[facility] [address]uss[address] [place], [place] [address]Up. Emelina Navarro CULTURE BLOODon 04-28-2022 Microscopic examination of blood, culture Culture Observations: NO GROWTH AT 5 DAYS. Normal [facility] Comment on above: Performed By: #### B LDCX2 ####[facility] Tu[address]ozbeyk7039 [place], [place] [address]Ok. Emelina Navarro Microscopic examination of blood, culture Culture Observations: NO GROWTH AT 5 DAYS. Normal [facility] Comment on above: Performed By: #### B LDCX1 ####[facility] Anekpwuapz6774 [place], [place] [address]Rw. Emelina Navarro Covid-19 PCR (CVDTB)on 04-19 SARS-CoV-2 (COVID-19) RNA RADHA+probe Ql (Unsp spec) Not detected Normal NOT DETECTED [facility] Comment on above: Result Comment: When [...] for this test is supported by the Automobile Mechanic Supervisor of Health and Human Service's declaration that [...] be used). Performed By: #### C VDTBH ####[facility] Ejqezmziqi88[address] [place] [id number]. Emelina Navarro DIGOXINon 04-28-2022 DIG 0.8 ng/mL Critically low 0.9-2.0 [facility] Comment on above: Performed By: #### D IG ####[facility] Lbdjpqogjp[address] [place], [place] [address]Dr. Emelina Navarro ER URINE PROFILEon 2 Bilirubin Ql (U) Negative Normal NEGATIVE [facility] Comment on above: Performed By: #### Hitesh POLK UMICRO ####[facility] Ybcmawxjki[address] [place], [place] [address]Dr. Emelina Navarro Clarity (U) CLEAR Normal CLEAR [facility] Comment on above: Performed By: #### Hitesh POLK UMICRO ####[facility] Clidmymwxu993[address] [place], [place] [address]Dr. Emelina Navarro Color (U) YELLOW Normal YELLOW [facility] Comment on above: Performed By: #### Hitesh POLK UMICRO ####[facility] Imvfvihzhw[address] [place], [place] [address]Dr. Emelina Navarro ERUAHD A micrscopic examina tion will be performed if indicated. Normal [facility] Comment on above: Performed By: #### Hitesh POLK UMICRO ####[facility] Zzhdkattqy12[address] [place], [place] [address]Dr. Emelina Navarro Glucose Ql (U) 500 mg/dl Abnormal NEGATIVE [facility] Comment on above: Performed By: #### Hitesh POLK UMICRO ####[facility] Xcgzflxjrg207[address] [place], [place] [address]Dr. Emelina Navarro Hemoglobin Ql (U) MODERATE Abnormal NEGATIVE [facility] Comment on above: Performed By: #### Hitesh POLK UMICRO ####[facility] Clituuptyp0267[address] [place], [place] [address]Dr. Emelina Navarro Ketones Ql (U) Negative Normal NEGATIVE [facility] Comment on above: Performed By: #### Hitesh POLK UMICRO ####[facility] Eaiqjgtxpq033[address] [place], [place] [address]Dr. Emelina Navarro LEUKOCYTES Negative Normal NEGATIVE [facility] Comment on above: Performed By: #### LINDSAY BOLANDRO ####[facility] Msbqqspxvu8799 [place] [address]Dr. Emelina Navarro Nitrite Ql (U) Negative Normal NEGATIVE [facility] Comment on above: Performed By: #### Hitesh POLK UMICRO ####[facility] T[address]qykotstw9[address] [place] [address]Dr. Emelina Navarro pH (U) 5.0 [pH] Normal 5-9 [facility] Comment on above: Performed By: #### Hitesh POLK UMICRO ####[facility] Bxbwumruux38[address] [place], [place] [address]Dr. Emelina Navarro Protein (U) [Mass/Vol] 100 mg/dL Abnormal NEGATIVE/ TRACE [facility] Comment on above: Performed By: #### RAMANDEEP BOLANDICRO ####[facility] Emiwyimabf376[address] [place], [place] [address]Dr. Emelina Navarro SPEC GRAVITY 1.025 Normal 1.005-<=1. 025 [facility] Comment on above: Performed By: #### LINDSAY BOLANDRO ####[facility] Otmhnpieuj[address] [place], [place] [address]Dr. Emelina Navarro UR MICRO IND INDICATED Normal [facility] Comment on above: Performed By: #### Hitesh POLK UMICRO ####[facility] Hwvdjnleot4[address] [place], [place] [address]Dr. Emelina Navarro Urobilinogen Qn (U) 0.2 {Ashley'U}/dL Normal 0.2 - 1. 0 [facility] Comment on above: Performed By: #### Hitesh POLK UMICRO ####[facility] Glesgyylvj[address] [place], [place] [address]Dr. Emelina Navarro LACTATE/LACTIC ACIDon 2021 Lactate [Moles/Vol] 5.1 mmol/L Critically high 0.4-1.9 [facility] Comment on above: Performed By: #### L ACT ####[facility] Zlzkftddku76[address] [place], [place] [address]Dr. Emelina Navarro Lactate [Moles/Vol] 4.8 mmol/L Critically high 0.4-1.9 [facility] Comment on above: Performed By: #### L ACT ####[facility] Ujfgzdutpv27[address] [place] [address]Dr. Emelina Navarro Lactate [Moles/Vol] 5.4 mmol/L Critically high 0.4-1.9 [facility] Comment on above: Performed By: #### L ACT ####[facility] Nymqywcklu14[address] [place] [address]Dr. Emelina Navarro POINT OF CARE GLUCOSEon 04-19 0-2021 Glucose [Mass/Vol] 426 mg/dL Critically high 74-106 [facility] Comment on above: Performed By: #### P OCGLUC ####[facility] Wyxidyncju8[address] [place], [place] [address]Dr. Emelina Navarro Glucose [Mass/Vol] 476 mg/dL Critically high 74-106 [facility] Comment on above: Performed By: #### P OCGLUC ####[facility] Crbhaqhnss2[address] [place], [place] [address]Dr. Emelina Navarro Glucose [Mass/Vol] 347 mg/dL Critically high 74-106 [facility] Comment on above: Performed By: #### P OCGLUC ####[facility] Djrdlzfdcy57[address] [place], [place] [address]Dr. Emelina Navarro PROF 14(COMP METB)on 022 Albumin [Mass/Vol] 3.4 g/dL Normal 3.4-5.0 [facility] Comment on above: Performed By: #### C MP, BNP, CMADM ####[facility] Ctneahdmne360[address] [place] [address]Dr. Emelina Navarro Albumin/Globulin [Mass ratio] 0.8 {ratio} Normal [facility] Comment on above: Performed By: #### C MP, BNP, CMADM ####[facility] Caqsyfwcom59[address] [place] [address]Dr. Emelina Navarro ALP [Catalytic activity/Vol] 85 U/L Normal 46-116 [facility] Comment on above: Performed By: #### C MP, BNP, CMADM ####[facility] Snpjarphpq5723 [place] [address]Dr. Emelina Navarro ALT [Catalytic activity/Vol] 246 U/L Critically high 16-63 [facility] Comment on above: Performed By: #### C MP, BNP, CMADM ####[facility] Ydrukdkmwo0066 [place] [address]Dr. Emelina Navarro Anion gap [Moles/Vol] 20.7 mmol/L Normal [facility] Comment on above: Performed By: #### C MP, BNP, CMADM ####[facility] Hshjkwgqcb2327 [place] [address]Dr. Emelina Navarro AST [Catalytic activity/Vol] 299 U/L Critically high 15-37 [facility] Comment on above: Performed By: #### C MP, BNP, CMADM ####[facility] Frpwibzsif9952 [place] [address]Dr. Emelina Navarro Bilirubin [Mass/Vol] 2.7 mg/dL Critically high 0.2-1.0 [facility] Comment on above: Performed By: #### C MP, BNP, CMADM ####[facility] Wodragiyjh[address] [place], [place] [address]Dr. Emelina Navarro Calcium [Mass/Vol] 8.5 mg/dL Normal 8.5-10.1 [facility] Comment on above: Performed By: #### C MP, BNP, CMADM ####[facility] Qiautzjpem55[address] [place] [address]Dr. Emelina Navarro Chloride [Moles/Vol] 96 mmol/L Critically low 98-107 [facility] Comment on above: Performed By: #### C MP, BNP, CMADM ####[facility] Wxemracqwx13[address] [place], [place] [address]Dr. Emelina Navarro CO2 [Moles/Vol] 19.3 mmol/L Critically low 21.0-32.0 [facility] Comment on above: Performed By: #### C MP, BNP, CMADM ####[facility] Qlvyhycxpn4168 [place] [address]Dr. Emelina Navarro Creatinine [Mass/Vol] 2.46 mg/dL Critically high 0.70-1.30 [facility] Comment on above: Performed By: #### C MP, BNP, CMADM ####[facility] Lcyvbqfwqu[address] [place] [address]Dr. Emelina Navarro EGFR-AF GRENADIAN 32 mL/min/1.73m2 Critically low >=60 [facility] Comment on above: Performed By: #### C MP, BNP, CMADM ####[facility] Iwhadxrdxd1254 [place] [address]Dr. Emelina Navarro EGFR-NON AF GRENADIAN 26 mL/min/1.73m2 Critically low >=60 [facility] Comment on above: Performed By: #### C MP, BNP, CMADM ####[facility] Emtjfporik[address] [place] [address]Dr. Awildanitza Navarro Globulin (S) [Mass/Vol] 4.4 g/dL Normal [facility] Comment on above: Performed By: #### C MP, BNP, CMADM ####[facility] Phzxmmfzdp6467 [place] [address]Dr. Emelina Ramon Glucose [Mass/Vol] 359 mg/dL Critically high 74-106 T [facility] Comment on above: Performed By: #### C MP, BNP, CMADM ####[facility] Bonvitoumu1218 [place] [address]Dr. Emelina Navarro Potassium [Moles/Vol] 7.0 mmol/L Critically high 3.5-5.1 [facility] Comment on above: Performed By: #### C MP, BNP, CMADM ####[facility] Aufpypnhyd65[address] [place] [address]Dr. Emelina Navarro Protein [Mass/Vol] 7.8 g/dL Normal 6.4-8.2 [facility] Comment on above: Performed By: #### C MP, BNP, CMADM ####[facility] Bosxfafhms85[address] [place], [place] [address]Dr. Emelina Navarro Sodium [Moles/Vol] 129 mmol/L Critically low 136-145 Th [facility] Comment on above: Performed By: #### C MP, BNP, CMADM ####[facility] Vitqgowojk14[address] [place], [place] [address]Dr. Emelina Navarro Urea nitrogen [Mass/Vol] 37.0 mg/dL Critically high 7.0-18.0 [facility] Comment on above: Performed By: #### C MP, BNP, CMADM ####[facility] Suxzutkbam[address] [place], [place] [address]Dr. Emelina Navarro Urea nitrogen/Creatinine [Mass ratio] 15.0 mg/mg Normal [facility] Comment on above: Performed By: #### C MP, BNP, CMADM ####[facility] Lmiqmfckah89[address] [place], [place] [address]Dr. Emelina Navarro PROF CHEM 8 (BAS METB)on Anion gap [Moles/Vol] 19.2 mmol/L Normal [facility] Comment on above: Performed By: #### B MP ####[facility] Jprcnnveux71[address] [place], [place] [address]Dr. Emelina Navarro Calcium [Mass/Vol] 7.7 mg/dL Critically low 8.5-10.1 [facility] Comment on above: Performed By: #### B MP ####[facility] Onalbevzrk415[address] [place], [place] [address]Dr. Emelina Navarro Chloride [Moles/Vol] 97 mmol/L Critically low 98-107 [facility] Comment on above: Performed By: #### B MP ####[facility] Ootcnrwkni2316[address] [place], [place] [address]Dr. Emelina Navarro CO2 [Moles/Vol] 20.5 mmol/L Critically low 21.0-32.0 [facility] Comment on above: Performed By: #### B MP ####[facility] Alvitzznsw1734[address] [place], [place] [address]Dr. Emelina Navarro Creatinine [Mass/Vol] 2.18 mg/dL Critically high 0.70-1.30 [facility] Comment on above: Performed By: #### B MP ####[facility] Ghqatbvkfa7445 [place] [address]Dr. Emelina Navarro EGFR-AF GRENADIAN 37 mL/min/1.73m2 Critically low >=60 [facility] Comment on above: Performed By: #### B MP ####[facility] Jkpvyidqhw6025 [place] [address]Dr. Emelina Navarro EGFR-NON AF GRENADIAN 30 mL/min/1.73m2 Critically low >=60 [facility] Comment on above: Performed By: #### B MP ####[facility] Cngszxovmw5313 [place] [address]Dr. Emelina Navarro Glucose [Mass/Vol] 434 mg/dL Critically high 74-106 T [facility] Comment on above: Performed By: #### B MP ####[facility] Vujnhhhizv[address] [place], [place] [address]Dr. Emelina Navarro Potassium [Moles/Vol] 4.7 mmol/L Normal 3.5-5.1 [facility] Comment on above: Performed By: #### B MP ####[facility] Xrgywocugo9[address] [place], [place] [address]Dr. Emelina Navarro Sodium [Moles/Vol] 132 mmol/L Critically low 136-145 [facility] Comment on above: Performed By: #### B MP ####[facility] Txxldxojyo129[address] [place], [place] [address]Dr. Emelina Navarro Urea nitrogen [Mass/Vol] 37.0 mg/dL Critically high 7.0-18.0 [facility] Comment on above: Performed By: #### B MP ####[facility] Pvnoheqyud9[address] [place] [address]Dr. Awildanitza Ramon Urea nitrogen/Creatinine [Mass ratio] 17.0 mg/mg Normal [facility] Comment on above: Performed By: #### B MP ####[facility] Zlmvnejbgx7867 [place] [address]Dr. Emelina Ramon PROTIMEon 04-28-2022 INR Coag (PPP) [Relative time] 1.91 {INR} Normal [facility] Comment on above: Performed By: #### P TT, PT ####[facility] Urkuosuoay22[address] [place], [place] [address]Dr. Emelina Navarro INR GUIDELINES SEE BELOW Normal [facility] Comment on above: Result Comment: WENDY RED INR: 2.0 - 3.0 CONDITIONS NOT LISTED BELOW 2.5 - 3.5 FOR PROSTHETIC HEART VALVE REPLACEMENT 2.5 - 3.5 RECURRENT THROMBOSIS Performed By: #### P TT, PT ####[facility] Settkvikuj50[address] [place], [place] [address]Dr. Emelina Navarro PT Coag (PPP) [Time] 19.8 s Critically high 9.0-11.6 [facility] Comment on above: Performed By: #### P TT, PT ####[facility] Wueaznsqxu[address] [place], [place] [address]Dr. Emelina Navarro PTTon 04-28-2022 aPTT Coag (Bld) [Time] 33.0 s Normal 22.3-36.2 [facility] Comment on above: Performed By: #### P TT, PT ####[facility] Jrumevmbiy234[address] [place], [place] [address]Dr. Emelina Navarro RESPIRATORY PANEL PLUSon Adenovirus Not detected Normal NOT DETECTED [facility] Comment on above: Performed By: #### R SPLUS ####[facility] Umzmkmhfnd17[address] [place], [place] [address]Dr. Emelina Navarro B. Parapertusis Not detected Normal NOT DETECTED [facility] Comment on above: Performed By: #### R SPLUS ####[facility] [address]zadxbjyrw[address] [place], [place] [address]Dr. Emelina Navarro B. Pertussis Not detected Normal NOT DETECTED [facility] Comment on above: Performed By: #### R SPLUS ####[facility] Eyvghqqkjf[address] [place], [place] [address]Dr. Emelina Navarro Chlamydia Pneumoniae Not detected Normal NOT DETECTED [facility] Comment on above: Performed By: #### R SPLUS ####[facility] Zxmxnsrdbp7[address] [place], [place] [address]Dr. Emelina Navarro Coronavirus 229E Not detected Normal NOT DETECTED [facility] Comment on above: Performed By: #### R SPLUS ####[facility] [address]vefitzug[address] [place] [address]Dr. Emelina [facility] Coronavirus HKU1 Not detected Normal NOT DETECTED [facility] Comment on above: Performed By: #### R SPLUS ####[facility] [address]uibukof[address] [place] [address]Dr. Emelina [facility] Coronavirus NL63 Not detected Normal NOT DETECTED [facility] Comment on above: Performed By: #### R SPLUS ####[facility] Cicuonbuzo[address] [place], [place] [address]Dr. Emelina [facility] Coronavirus OC43 Not detected Normal NOT DETECTED [facility] Comment on above: Performed By: #### R SPLUS ####[facility] Ussqeralst[address] [place], [place] [address]Dr. Emelina Navarro Influenza A H1 2009 Not detected Normal NOT DETECTED [facility] Comment on above: Performed By: #### R SPLUS ####[facility] Fjv[address]fu[address] [place], [place] [address]Dr. Emelina Navarro Influenza A H3 Not detected Normal NOT DETECTED [facility] Comment on above: Performed By: #### R SPLUS ####[facility] Kobpkqejil[address] [place], [place] [address]Dr. Emelina Navarro Influenza B Not detected Normal NOT DETECTED [facility] Comment on above: Performed By: #### R SPLUS ####[facility] Bicxqzpmiw[address] [place], [place] [address]Dr. Emelina Navarro Metapneumovirus Not detected Normal NOT DETECTED [facility] Comment on above: Performed By: #### R SPLUS ####[facility] [address] [place] [address]Dr. Emelina Navarro Mycoplas. Pneumoniae Not detected Normal NOT DETECTED [facility] Comment on above: Performed By: #### R SPLUS ####[facility] Kjjxzgxr[address] [place], [place] [address]Dr. Emelina Navarro Parainfluenza 1 Not detected Normal NOT DETECTED [facility] Comment on above: Performed By: #### R SPLUS ####[facility] T[address]luqs[address] [place], [place] [address]Dr. Emelina Navarro Parainfluenza 2 Not detected Normal NOT DETECTED [facility] Comment on above: Performed By: #### R SPLUS ####[facility] [address] [place], [place] [address]Dr. Emelina Navarro Parainfluenza 3 Detected Abnormal NOT DETECTED [facility] Comment on above: Performed By: #### R SPLUS ####[facility] Mqlygzhral[address] [place], [place] [address]Dr. Emelina Navarro Parainfluenza 4 Not detected Normal NOT DETECTED [facility] Comment on above: Performed By: #### R SPLUS ####[facility] Ckokexoulh[address] [place], [place] [address]Dr. Emelina Navarro Rhino/Enterovirus Not detected Normal NOT DETECTED [facility] Comment on above: Performed By: #### R SPLUS ####[facility] H[address]pr[address] [place], [place] [address]Dr. Emelina Navarro RP2 Header 1 RESPIRATORY PANEL: VIRUSES Normal [facility] Comment on above: Performed By: #### R SPLUS ####[facility] Yqywnofmub[address] [place], [place] [address]Dr. Emelina Navarro RP2 Header 2 RESPIRATORY PANEL: BACTERIA Normal [facility] Comment on above: Performed By: #### R SPLUS ####[facility] Dhfytqmlbf[address] [place], [place] [address]Dr. Awildanitza Navarro RSV Not detected Normal NOT DETECTED [facility] Comment on above: Performed By: #### R SPLUS ####[facility] Oibtshywtn[address] [place], [place] [address]Dr. Emelina Navarro SARS-CoV-2 (COVID-19) RNA RADHA+probe Ql (Unsp spec) Not detected Normal NOT DETECTED [facility] Comment on above: Performed By: #### R SPLUS ####[facility] Qnbvmv[address] [place], [place] [address]Dr. Emelina Navarro URINE MICROSCOPIC ONLYon BACTERIA NONE SEEN Normal NONE SEEN [facility] Comment on above: Performed By: #### RAMANDEEP BOLANDICRO ####[facility] [address] [place] [address]Dr. Emelina Navarro Bacteria identified Cx Nom (U) NOT INDICATED Normal [facility] Comment on above: Performed By: #### Hitesh POLK UMICRO ####[facility] [address] [place] [address]Dr. Emelina Navarro CAST SEEN Abnormal NONE SEEN [facility] Comment on above: Performed By: #### Hitesh POLK UMICRO ####[facility] [address] [place] [address]Dr. Emelina Navarro Crystals LM Nom (Urine sed) NONE SEEN Normal NONE SEEN [facility] Comment on above: Performed By: #### Hitesh POLK UMICRO ####[facility] Zytuc[address]ui[address] [place], [place] [address]Dr. Emelina Navarro Epithelial cells LM Ql (Urine sed) FEW Abnormal NONE SEEN /RARE [facility] Comment on above: Performed By: #### Hitesh POLK UMICRO ####[facility] W[address] [place], [place] [address]Dr. Emelina Navarro HYALINE CAST MANY Normal [facility] Comment on above: Performed By: #### RAMANDEEP BOLANDICRO ####[facility] [address] [place], [place] [address]Dr. Emelina Navarro MUCOUS NONE SEEN Normal NONE SEEN [facility] Comment on above: Performed By: #### LINDSAY BOLANDRO ####[facility] [address] [place], [place] [address]Dr. Emelina Navarro RBC 0-2 Normal 0-2 [facility] Comment on above: Performed By: #### RAMANDEEP BOLANDICRO ####[facility] [address] [place], [place] [address]Dr. Emelina Navarro WBC 0-2 Abnormal NONE SEEN [facility] Comment on above: Performed By: #### Hitesh POLK UMICRO ####[facility] [address] [place], [place] [address]Dr. Emelina Navarro XR CHEST 1 Von 04-28-2022 XR CHEST 1 V Normal [facility] Albumin [Mass/volume] in Ser um or PlasmaOrdered By: Ethan Cummings on 04-10-2022 Albumin [Mass/Vol] 3.8 g/dL 2.9-4.4 [facility] IgA [Mass/volume] in Serum o r PlasmaOrdered By: Ethan Cummings on 04-10-2022 IgA [Mass/Vol] 607 mg/dL 61-437 [facility] IgG [Mass/volume] in Serum o r PlasmaOrdered By: Ethan Cummings on 04-10-2022 IgG [Mass/Vol] 1207 mg/dL 603-1613 [facility] IgM [Mass/volume] in Serum o r PlasmaOrdered By: Ethan Cummings on 04-10-2022 IgM [Mass/Vol] 94 mg/dL 20-172 [facility] Comment on above: Performed at: [facility] [place], [place] [id number] Director: Alexis Winslow PhD, Phone: [phone] Immunoglobulin light chains. kappa.free [Mass/volume] in SerumOrdered By: Ethan Cummings on 04-10-2022 Immunoglobulin light chains.kappa.free (S) [Mass/Vol] 58.6 mg/L 3.3-19.4 [facility] Immunoglobulin light chains. kappa.free/Immunoglobulin light chains.lambda.free [MassOrdered By: Ethan Cummings on 04-10-2022 Immunoglobulin light chains.kappa.free/Imm unoglobulin light chains.lambda.free (S) [Mass ratio] 1.42 0.26-1.65 [facility] Comment on above: Performed at: [facility] [place], [place] [id number] Director: Alexis Winslow PhD, Phone: [phone] Immunoglobulin light chains. lambda.free [Mass/volume] in Serum or PlasmaOrdered By: Ethan Cummings on 04-10-2022 Immunoglobulin light chains.lambda.free [Mass/Vol] 41.2 mg/L 5.7-26.3 [facility] Laboratory - Hematology and Cell countsOrdered By: Ethan Cummings on 04-10-2022 Nucleated RBC/100 WBC (Bld) [Ratio] 0.0 % 0-0.5 [facility] No Panel InformationOrdered By: Ethan Cummings on 04-10-2022 BCR/abl See comment [facility] Comment on above: See report. Scanned copy available in EMR. CBC Comment See comment [facility] Comment on above: Slide referred to raquel thologist for review Platelet Estimate Normal Normal [facility] Platelet Morphology Comment Normal Normal [facility] Protein Electrophoresis M-Brenden Not observed g/dL Not Observed [facility] Protein Electrophoresis Note See comment . [facility] Comment on above: Protein electrophore sis scan will follow via computer,mail, or building coordinator delivery.Performed at: [facility] [address] [id number] Director: Alexis Winslow PhD, Phone: [phone] Serum Immunofixation See comment . [facility] Comment on above: No monoclonality det ected. Protein [Mass/volume] in Ser um or PlasmaOrdered By: Ethan Cummings on 04-10-2022 Protein [Mass/Vol] 7.4 g/dL 6.0-8.5 [facility] RBC morphologyOrdered By: Francis Cummings on 04-10-2022 RBC morphology finding Nom (Bld) Normal [facility] Serum globulin measurement ( mass/volume)Ordered By: Ethan Cummings on 04-10-2022 Globulin (S) [Mass/Vol] 3.6 g/dL 2.2-3.9 [facility] Serum or plasma albumin/glob ulin mass ratioOrdered By: Ethan Cummings on 04-10-2022 Albumin/Globulin [Mass ratio] 1.1 {ratio} 0.7-1.7 [facility] Serum or plasma alpha 1 glob ulin measurement by electrophoresis (mass/volume)Ordered By: Ethan Cummings on 04-10-2022 Alpha 1 globulin Elph [Mass/Vol] 0.2 g/dL 0.0-0.4 [facility] Serum or plasma alpha 2 glob ulin measurement by electrophoresis (mass/volume)Ordered By: Ethan Cummings on 04-10-2022 Alpha 2 globulin Elph [Mass/Vol] 0.9 g/dL 0.4-1.0 [facility] Serum or plasma beta globuli n measurement by electrophoresis (mass/volume)Ordered By: Ethan Cummings on 04-10-2022 Beta globulin Elph [Mass/Vol] 1.2 g/dL 0.7-1.3 [facility] Serum or plasma gamma globul in measurement by electrophoresis (mass/volume)Ordered By: Ethan Cummings on 04-10-2022 Gamma globulin Elph [Mass/Vol] 1.3 g/dL 0.4-1.8 [facility] Serum or plasma methylmalona te measurement (moles/volume)Ordered By: Ethan Cummings on 04-10-2022 Methylmalonate [Moles/Vol] 668 nmol/L 0-378 [facility] Comment on above: This test was develo ped and its performance characteristicsdetermined by [facility]. It has not been cleared orapproved by the Food and Drug Administration.Performed at: [address] [id number] Director: Natalia Vergara MD, Phone: [phone] XR foot LT min 3V*on 022 XR foot LT min 3V* [facility] [employer] Other XR foot LT min 3V* [facility] [employer] Other XR foot LT min 3V* [address] [place] [address] [employer] Other XR foot LT min 3V* [place] [address] [email or web address] Other XR foot LT min 3V* XRay Report [email or web address] Other XR foot LT min 3V* Signed [email or web address] Other XR foot LT min 3V* Patient: Adwoa Porter MR#: [id number] [facility] [employer] Other XR foot LT min 3V* 7 [email or web address] Other XR foot LT min 3V* : 1955 Acct:[id number] [email or web address] Other XR foot LT min 3V* Age/Sex: 66 / M ADM Date: 02/19/22 [email or web address] Other XR foot LT min 3V* Loc: XDUCLY Room: Ty pe: REG CLI [email or web address] Other XR foot LT min 3V* Attending Dr: Ruthie EUCEDA [email or web address] Other XR foot LT min 3V* Ordering Provider: KINSEY Jiménez [email or web address] Other XR foot LT min 3V* Date of Service: 02/19/22 [email or web address] Other XR foot LT min 3V* 22471) XR/XR foot LT min 3V*: Left foot pain [email or web address] Other XR foot LT min 3V* Copies to: KINSEY Mancia [email or web address] Other XR foot LT min 3V* LEFT FOOT - 3 views [email or web address] Other XR foot LT min 3V* CLINICAL HISTORY: Le ft foot pain. [email or web address] Other XR foot LT min 3V* COMPARISON: Left tessie t series 02/09/2020 [email or web address] Other XR foot LT min 3V* FINDINGS: [email or web address] Other XR foot LT min 3V* Soft tissue swelling is noted. Since the prior study, as been interval partial amputation of the [email or web address] Other XR foot LT min 3V* first digit. 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 Questionable [email or web address] Other XR foot LT min 3V* subluxation/dislocat ion involving the PIP joint of the second digit. No definite plain film [email or web address] Other XR foot LT min 3V* evidence of osteomyelitis. [email or web address] Other XR foot LT min 3V* X R/XR foot LT min 3V* [email or web address] Other XR foot LT min 3V* IMPRESSION: [email or web address] Other XR foot LT min 3V* QUESTIONABLE SUBLUXATION/DISLOCATION INVOLVING THE PIP JOINT OF THE SECOND DIGIT. SOFT TISSUE [email or web address] Other XR foot LT min 3V* SWELLING. [email or web address] Other XR foot LT min 3V* Impression dictated by: Brennan Salgado Jr., D.OWesley02/19/2022 11:52 AM [email or web address] Other XR foot LT min 3V* Dictation Location: [place] [address] [email or web address] Other XR foot LT min 3V* Transcribed By: CONSUELO 02/19/22 1152 [email or web address] Other XR foot LT min 3V* Dictated By: Brennan Salgado Jr, DO 02/19/22 1148 [email or web address] Other XR foot LT min 3V* Signed By: [email or web address] Other XR foot LT min 3V* 02/19/[address] [facility] [employer] Other Glucose - FINGER STICKon Glucose [Mass/Vol] 166 mg/dL [email or web address] Other A1C HEMOGLOBINon 11-16-2021 HbA1c (Bld) [Mass fraction] 10.7 % [email or web address] Other Glucose - FINGER STICKon Glucose [Mass/Vol] 205 mg/dL [email or web address] Other HbA1c (Bld) [Mass fraction]o n 11-16-2021 A1C HEMOGLOBIN [facility] [employer] Other Glucose - FINGER STICKon Glucose [Mass/Vol] 158 mg/dL [email or web address] Other BASIC METABOLIC PANELon 05-3 Calcium [Mass/Vol] 9.9 mg/dL Normal 8.6-10.3 [facility] Comment on above: Order Comment: No: D o not add to previous draw Performed By: #### 9 9909, 76888, 34060, 82746 #### [facility] [address] [place] [address], [facility] Chloride [Moles/Vol] 93 mmol/L Low 98-107 [facility] Comment on above: Order Comment: No: D o not add to previous draw Performed By: #### 9 9909, 61861, 95538, 86668 #### [facility] [address] [place] [address], [place] CO2 [Moles/Vol] 32 mmol/L High 21-31 [facility] Comment on above: Order Comment: No: D o not add to previous draw Performed By: #### 9 9909, 03259, 87417, 17335 #### [facility] [address] [place] [address], [place] Creatinine [Mass/Vol] 1.89 mg/dL High 0.70-1.30 [facility] Comment on above: Order Comment: No: D o not add to previous draw Performed By: #### 9 9909, 12650, 40279, 55734 #### [facility] [address] [place] [address], [place] eGFR- 43 ml/min/1.73sq m Abnormal >60 [facility] Comment on above: Order Comment: No: D o not add to previous draw Performed By: #### 9 9909, 94102, 44238, 41534 #### [facility] [address] [place] [address], [place] eGFR- non- 36 ml/min/1.73sq m Abnormal >60 [facility] Comment on above: Order Comment: No: D o not add to previous draw Performed By: #### 9 9909, 81874, 67449, 54910 #### [facility] [address] [place] [address], [place] Glucose [Mass/Vol] 217 mg/dL High 70-100 [facility] Comment on above: Order Comment: No: D o not add to previous draw Performed By: #### 9 9909, 77379, 23106, 54565 #### [facility] [address] [place] [address], [place] Potassium [Moles/Vol] 4.2 mmol/L Normal 3.5-5.1 [facility] Comment on above: Order Comment: No: D o not add to previous draw Performed By: #### 9 9909, 93973, 95707, 88198 #### [facility] [address] [place] [address], [place] Sodium [Moles/Vol] 135 mmol/L Low 136-145 [facility] Comment on above: Order Comment: No: D o not add to previous draw Performed By: #### 9 9909, 16746, 76809, 84455 #### [facility] [address] [place] [address], [place] Urea nitrogen [Mass/Vol] 53 mg/dL High 7-25 [facility] Comment on above: Order Comment: No: D o not add to previous draw Performed By: #### 9 9909, 29637, 71325, 36055 #### [facility] [address] [place] [address], [place] POC GLUCOSE LABon 04-17-2021 Glucose [Mass/Vol] 274 mg/dL High 70-100 [facility] Comment on above: Performed By: #### 8 5499 #### [facility] [address] [facility] [place] [address], [facility] PROTHROMBIN TIMEon 1 INR Coag (PPP) [Relative time] 1.76 {INR} High 0.91-1.16 [facility] Comment on above: Order Comment: [...] 1995;108:[id number]. Performed By: #### 3 5200 #### [facility] [address] [facility] [place] [place] [address], [facility] PT Coag (PPP) [Time] 20.6 s High 12.3-14.8 [facility] Comment on above: Order Comment: No: D o not add to previous draw Result Comment: ALL RESULTS MUST BE INTERPRETED WITH RESPECT TO BLOOD DRAWING ARTIFACT OR DILUTION ERROR OF ANTICOAGULANT AT THE TIME OF SAMPLING. Performed By: #### 3 5200 #### [facility] [address] [place] [address], [facility] INR Coag (PPP) [Relative time] 1.64 {INR} High 0.91-1.16 [facility] Comment on above: Order Comment: [...] 1995;108:[id number]. Performed By: #### 3 5200 #### [facility] [address] [place] [address], [facility] PT Coag (PPP) [Time] 19.5 s High 12.3-14.8 [facility] Comment on above: Order Comment: No: D o not add to previous draw Result Comment: ALL RESULTS MUST BE INTERPRETED WITH RESPECT TO BLOOD DRAWING ARTIFACT OR DILUTION ERROR OF ANTICOAGULANT AT THE TIME OF SAMPLING. Performed By: #### 3 5200 #### [facility] [address] [place] [address], [facility] BASIC METABOLIC PANELon 05-2 Calcium [Mass/Vol] 10.0 mg/dL Normal 8.6-10.3 [facility] Comment on above: Order Comment: No: D o not add to previous draw Performed By: #### 1 0070, 95557 #### [facility] [address] [place] [id number], [facility] Chloride [Moles/Vol] 92 mmol/L Low 98-107 [facility] Comment on above: Order Comment: No: D o not add to previous draw Performed By: #### 1 69, 14629 #### [facility] [address] [place] [address], [facility] CO2 [Moles/Vol] 35 mmol/L High 21-31 [facility] Comment on above: Order Comment: No: D o not add to previous draw Performed By: #### 1 69, 77500 #### [facility] [address] [place] [address], [place] Creatinine [Mass/Vol] 1.89 mg/dL High 0.70-1.30 [facility] Comment on above: Order Comment: No: D o not add to previous draw Performed By: #### 1 69, 08468 #### [facility] [address] [place] [address], [facility] eGFR- 43 ml/min/1.73sq m Abnormal >60 [facility] Comment on above: Order Comment: No: D o not add to previous draw Performed By: #### 1 69, 99485 #### [facility] [address] [place] [address], [facility] eGFR- non- 36 ml/min/1.73sq m Abnormal >60 [facility] Comment on above: Order Comment: No: D o not add to previous draw Performed By: #### 1 69, 96124 #### [facility] [address] [place] [address], [place] Glucose [Mass/Vol] 187 mg/dL High 70-100 [facility] Comment on above: Order Comment: No: D o not add to previous draw Performed By: #### 1 69, 43599 #### [facility] [address] [place] [address], [place] Potassium [Moles/Vol] 4.1 mmol/L Normal 3.5-5.1 [facility] Comment on above: Order Comment: No: D o not add to previous draw Performed By: #### 1 69, 21301 #### [facility] [address] [place] [address], [facility] Sodium [Moles/Vol] 137 mmol/L Normal 136-145 [facility] Comment on above: Order Comment: No: D o not add to previous draw Performed By: #### 1 69, 59402 #### [facility] [address] Urea nitrogen [Mass/Vol] 52 mg/dL High 7-25 [facility] Comment on above: Order Comment: No: D o not add to previous draw Performed By: #### 1 69, 48322 #### [facility] [address] CBC W/DIFFon 04-16-2021 ABS IMM GRANS 0.0 10*3/uL Normal 0.0-0.2 [facility] Comment on above: Order Comment: No: D o not add to previous draw Performed By: #### 3 5200 #### [facility] [address] [place] [address], [facility] ABS NEUTROPHILS 5.9 10*3/uL Normal 1.6-7.6 [facility] Comment on above: Order Comment: No: D o not add to previous draw Performed By: #### 3 5200 #### [facility] [address] [place] [address], [facility] Basophils (Bld) [#/Vol] 0.0 10*3/uL Normal 0.0-0.2 [facility] Comment on above: Order Comment: No: D o not add to previous draw Performed By: #### 3 5200 #### [facility] [address] [place] [address], [facility] Basophils/100 WBC (Bld) 0.3 % Normal 0.0-1.0 [facility] Comment on above: Order Comment: No: D o not add to previous draw Performed By: #### 3 5200 #### [facility] [address] [place] [address], [facility] Eosinophils (Bld) [#/Vol] 0.4 10*3/uL Normal 0.0-0.5 [facility] Comment on above: Order Comment: No: D o not add to previous draw Performed By: #### 3 5200 #### [facility] [address] [place] [address], [facility] Eosinophils/100 WBC (Bld) 4.3 % Normal 0.0-6.0 [facility] Comment on above: Order Comment: No: D o not add to previous draw Performed By: #### 3 5200 #### [facility] [address] [place] [address], [facility] Erythrocyte distribution width (RBC) [Ratio] 16.1 % High 11.5-15.0 [facility] Comment on above: Order Comment: No: D o not add to previous draw Performed By: #### 3 5200 #### [facility] [address] [facility] [place] [id number], [facility] Hematocrit (Bld) [Volume fraction] 37.0 % Low 39.0-50.0 [facility] Comment on above: Order Comment: No: D o not add to previous draw Performed By: #### 3 5200 #### [facility] [address] [place] [address], [facility] Hemoglobin (Bld) [Mass/Vol] 11.4 g/dL Low 13.0-17.0 [facility] Comment on above: Order Comment: No: D o not add to previous draw Performed By: #### 3 5200 #### [facility] [address] [place] [address], [facility] IMMATURE GRANS 0.3 % Normal 0.0-1.0 [facility] Comment on above: Order Comment: No: D o not add to previous draw Performed By: #### 3 5200 #### [facility] [address] [place] [address], [facility] Lymphocytes (Bld) [#/Vol] 1.8 10*3/uL Normal 1.2-4.0 [facility] Comment on above: Order Comment: No: D o not add to previous draw Performed By: #### 3 5200 #### [facility] [address] [place] [address], [facility] Lymphocytes/100 WBC (Bld) 20.7 % Normal 20.0-45.0 [facility] Comment on above: Order Comment: No: D o not add to previous draw Performed By: #### 3 5200 #### [facility] [address] [place] [address], [place] [facility] MCH (RBC) [Entitic mass] 27.1 pg Normal 27.0-33.0 [facility] Comment on above: Order Comment: No: D o not add to previous draw Performed By: #### 3 5200 #### [facility] [address] [place] [address], [facility] MCHC (RBC) [Mass/Vol] 30.8 g/dL Low 32.0-35.0 [facility] Comment on above: Order Comment: No: D o not add to previous draw Performed By: #### 3 5200 #### [facility] [address] [facility] [place] [address], [facility] MCV (RBC) [Entitic vol] 88.1 fL Normal 82.0-98.0 [facility] Comment on above: Order Comment: No: D o not add to previous draw Performed By: #### 3 5200 #### [facility] [address] [place] [address], [facility] Monocytes (Bld) [#/Vol] 0.7 10*3/uL Normal 0.1-1.0 [facility] Comment on above: Order Comment: No: D o not add to previous draw Performed By: #### 3 5200 #### [facility] [address] [place] [address], [place] MONOS 7.9 % Normal 5.0-12.0 [facility] Comment on above: Order Comment: No: D o not add to previous draw Performed By: #### 3 5200 #### [facility] [address] [place] [address], [place] Neutrophils/100 WBC (Bld) 66.5 % Normal 40.0-72.0 [facility] Comment on above: Order Comment: No: D o not add to previous draw Performed By: #### 3 5200 #### [facility] [address] [place] [address], [place] Nucleated RBC/100 WBC (Bld) [Ratio] 0 % Normal 0-0 [facility] Comment on above: Order Comment: No: D o not add to previous draw Performed By: #### 3 5200 #### [facility] [address] [place] [address], [place] PLAT CNT 189 10*3/uL Normal 150-400 [facility] Comment on above: Order Comment: No: D o not add to previous draw Performed By: #### 3 5200 #### [facility] [address] [place] [address], [place] RBC (Bld) [#/Vol] 4.20 10*6/uL Normal 4.20-5.70 [facility] Comment on above: Order Comment: No: D o not add to previous draw Performed By: #### 3 5200 #### [facility] [address] [place] [address], [place] WBC (Bld) [#/Vol] 8.82 10*3/uL Normal 4.00-10.60 [facility] Comment on above: Order Comment: No: D o not add to previous draw Performed By: #### 3 5200 #### [facility] [address] [place] [address], [place] HEMOGLOBIN A1Con 04-16-2021 Glucose [Moles/Vol] 180 mmol/L Normal [facility] Comment on above: Order Comment: Yes: Add to Previous draw if able Performed By: #### 8 5499 #### [facility] [address] [place] [address], [place] HbA1c (Bld) [Mass fraction] 7.9 % High 4.0-6.0 [facility] Comment on above: Order Comment: Yes: Add to Previous draw if able Performed By: #### 8 5499 #### [facility] [address] [place] [address], [place] MAGNESIUM BLOODon 04-16-2021 Magnesium [Mass/Vol] 2.3 mg/dL Normal 1.9-2.7 [facility] Comment on above: Order Comment: No: D o not add to previous draw Performed By: #### 1 0070, 21070 #### [facility] [address] [place] [address], [place] POC GLUCOSE LABon 04-16-2021 Glucose [Mass/Vol] 357 mg/dL High 70-100 [facility] Comment on above: Performed By: #### 8 5499 #### [facility] [address] [place] [address], [place] Glucose [Mass/Vol] 149 mg/dL High 70-100 [facility] Comment on above: Performed By: #### 9 9909, 76021, 34602, 50909 #### [facility] [address] [place] [address], [place] Glucose [Mass/Vol] 243 mg/dL High 70-100 [facility] Comment on above: Performed By: #### 8 5499 #### [facility] [address] [place] [address], [place] Glucose [Mass/Vol] 181 mg/dL High 70-100 [facility] Comment on above: Performed By: #### 9 9909, 56199, 33066, 38209 #### [facility] [address] [place] [address], [facility] PROTHROMBIN TIMEon 1 INR Coag (PPP) [Relative time] 1.63 {INR} High 0.91-1.16 [facility] Comment on above: Order Comment: [...] 1995;108:231S-246S. Performed By: #### 3 5200 #### [facility] [address] [place] [address], [facility] PT Coag (PPP) [Time] 19.4 s High 12.3-14.8 [facility] Comment on above: Order Comment: No: D o not add to previous draw Result Comment: ALL RESULTS MUST BE INTERPRETED WITH RESPECT TO BLOOD DRAWING ARTIFACT OR DILUTION ERROR OF ANTICOAGULANT AT THE TIME OF SAMPLING. Performed By: #### 3 5200 #### [facility] [address] [place] [address], [facility] INR Coag (PPP) [Relative time] 1.66 {INR} High 0.91-1.16 [facility] Comment on above: Order Comment: [...] 1995;108:231S-246S. Performed By: #### 3 5200 #### [facility] [address] [place] [address], [facility] PT Coag (PPP) [Time] 19.7 s High 12.3-14.8 [facility] Comment on above: Order Comment: No: D o not add to previous draw Result Comment: ALL RESULTS MUST BE INTERPRETED WITH RESPECT TO BLOOD DRAWING ARTIFACT OR DILUTION ERROR OF ANTICOAGULANT AT THE TIME OF SAMPLING. Performed By: #### 3 5200 #### [facility] [address] [place] [address], [facility] BASIC METABOLIC PANELon 05 Calcium [Mass/Vol] 9.7 mg/dL Normal 8.6-10.3 [facility] Comment on above: Order Comment: No: D o not add to previous draw Performed By: #### 9 9909, 60406, 62697, 04869 #### [facility] [address] [place] [address], [facility] Chloride [Moles/Vol] 92 mmol/L Low 98-107 [facility] Comment on above: Order Comment: No: D o not add to previous draw Performed By: #### 9 9909, 63242, 77659, 17501 #### [facility] [address] [place] [address], [place] CO2 [Moles/Vol] 36 mmol/L High 21-31 [facility] Comment on above: Order Comment: No: D o not add to previous draw Performed By: #### 9 9909, 96357, 45826, 08077 #### [facility] [address] [place] [address], [facility] Creatinine [Mass/Vol] 1.86 mg/dL High 0.70-1.30 [facility] Comment on above: Order Comment: No: D o not add to previous draw Performed By: #### 9 9909, 77450, 10180, 13362 #### [facility] [address] [place] [address], [facility] eGFR- 44 ml/min/1.73sq m Abnormal >60 [facility] Comment on above: Order Comment: No: D o not add to previous draw Performed By: #### 9 9909, 31423, 17159, 38017 #### [facility] [address] [place] [address], [place] eGFR- non- 37 ml/min/1.73sq m Abnormal >60 [facility] Comment on above: Order Comment: No: D o not add to previous draw Performed By: #### 9 9909, 72465, 55524, 60442 #### [facility] [address] [place] [address], [place] Glucose [Mass/Vol] 167 mg/dL High 70-100 [facility] Comment on above: Order Comment: No: D o not add to previous draw Performed By: #### 9 9909, 67799, 41863, 46783 #### [facility] [address] [place] [address], [facility] Potassium [Moles/Vol] 4.0 mmol/L Normal 3.5-5.1 [facility] Comment on above: Order Comment: No: D o not add to previous draw Performed By: #### 9 9909, 29746, 05531, 91146 #### [facility] [address] [place] [address], [facility] Sodium [Moles/Vol] 138 mmol/L Normal 136-145 [facility] Comment on above: Order Comment: No: D o not add to previous draw Performed By: #### 9 9909, 41071, 06311, 63627 #### [facility] [address] [facility] [address] Urea nitrogen [Mass/Vol] 44 mg/dL High 7-25 [facility] Comment on above: Order Comment: No: D o not add to previous draw Performed By: #### 9 9909, 26376, 80426, 80105 #### [facility] [address] [facility] [place] [place] [address], [facility] CBC W/DIFFon 04-15-2021 ABS IMM GRANS 0.0 10*3/uL Normal 0.0-0.2 [facility] Comment on above: Order Comment: No: D o not add to previous draw Performed By: #### 3 7900 #### [facility] [address] [place] [address], [facility] ABS NEUTROPHILS 6.3 10*3/uL Normal 1.6-7.6 [facility] Comment on above: Order Comment: No: D o not add to previous draw Performed By: #### 3 5200 #### [facility] [address] [place] [id number], [facility] Basophils (Bld) [#/Vol] 0.0 10*3/uL Normal 0.0-0.2 [facility] Comment on above: Order Comment: No: D o not add to previous draw Performed By: #### 3 5200 #### [facility] [address] [place] [address], [facility] Basophils/100 WBC (Bld) 0.3 % Normal 0.0-1.0 [facility] Comment on above: Order Comment: No: D o not add to previous draw Performed By: #### 3 5200 #### [facility] [address] [place] [address], [place] Eosinophils (Bld) [#/Vol] 0.4 10*3/uL Normal 0.0-0.5 [facility] Comment on above: Order Comment: No: D o not add to previous draw Performed By: #### 3 5200 #### [facility] [address] [place] [address], [facility] Eosinophils/100 WBC (Bld) 4.5 % Normal 0.0-6.0 [facility] Comment on above: Order Comment: No: D o not add to previous draw Performed By: #### 3 5200 #### [facility] [address] [place] [address], [facility] Erythrocyte distribution width (RBC) [Ratio] 16.3 % High 11.5-15.0 [facility] Comment on above: Order Comment: No: D o not add to previous draw Performed By: #### 3 5200 #### [facility] [address] [place] [address], [facility] Hematocrit (Bld) [Volume fraction] 37.4 % Low 39.0-50.0 [facility] Comment on above: Order Comment: No: D o not add to previous draw Performed By: #### 3 5200 #### [facility] [address] [place] [address], [place] Hemoglobin (Bld) [Mass/Vol] 11.4 g/dL Low 13.0-17.0 [facility] Comment on above: Order Comment: No: D o not add to previous draw Performed By: #### 3 5200 #### [facility] [address] [place] [address], [facility] IMMATURE GRANS 0.3 % Normal 0.0-1.0 [facility] Comment on above: Order Comment: No: D o not add to previous draw Performed By: #### 3 5200 #### [facility] [address] [place] [address], [facility] Lymphocytes (Bld) [#/Vol] 1.8 10*3/uL Normal 1.2-4.0 [facility] Comment on above: Order Comment: No: D o not add to previous draw Performed By: #### 3 5200 #### [facility] [address] [place] [address], [facility] Lymphocytes/100 WBC (Bld) 19.1 % Low 20.0-45.0 [facility] Comment on above: Order Comment: No: D o not add to previous draw Performed By: #### 3 5200 #### [facility] [address] [place] [address], [facility] MCH (RBC) [Entitic mass] 27.2 pg Normal 27.0-33.0 [facility] Comment on above: Order Comment: No: D o not add to previous draw Performed By: #### 3 5200 #### [facility] [address] [place] [address], [facility] MCHC (RBC) [Mass/Vol] 30.5 g/dL Low 32.0-35.0 [facility] Comment on above: Order Comment: No: D o not add to previous draw Performed By: #### 3 5200 #### [facility] [address] [place] [id number], [facility] MCV (RBC) [Entitic vol] 89.3 fL Normal 82.0-98.0 [facility] Comment on above: Order Comment: No: D o not add to previous draw Performed By: #### 3 5200 #### [facility] [address] [place] [address], [facility] Monocytes (Bld) [#/Vol] 0.7 10*3/uL Normal 0.1-1.0 [facility] Comment on above: Order Comment: No: D o not add to previous draw Performed By: #### 3 5200 #### [facility] [address] [place] [address], [facility] MONOS 7.4 % Normal 5.0-12.0 [facility] Comment on above: Order Comment: No: D o not add to previous draw Performed By: #### 3 5200 #### [facility] [address] [place] [address], [facility] Neutrophils/100 WBC (Bld) 68.4 % Normal 40.0-72.0 [facility] Comment on above: Order Comment: No: D o not add to previous draw Performed By: #### 3 5200 #### [facility] [address] [facility] [address], [facility] Nucleated RBC/100 WBC (Bld) [Ratio] 0 % Normal 0-0 [facility] Comment on above: Order Comment: No: D o not add to previous draw Performed By: #### 3 5200 #### [facility] [address] [facility] [address], [facility] PLAT CNT 177 10*3/uL Normal 150-400 [facility] Comment on above: Order Comment: No: D o not add to previous draw Performed By: #### 3 5200 #### [facility] [address] [place] [address], [facility] RBC (Bld) [#/Vol] 4.19 10*6/uL Low 4.20-5.70 [facility] Comment on above: Order Comment: No: D o not add to previous draw Performed By: #### 3 5200 #### [facility] [address] [place] [address], [place] WBC (Bld) [#/Vol] 9.21 10*3/uL Normal 4.00-10.60 [facility] Comment on above: Order Comment: No: D o not add to previous draw Performed By: #### 3 5200 #### [facility] [address] [place] [address], [place] MAGNESIUM BLOODon 04-15-2021 Magnesium [Mass/Vol] 2.3 mg/dL Normal 1.9-2.7 [facility] Comment on above: Order Comment: No: D o not add to previous draw Performed By: #### 9 9909, 10390, 59744, 43895 #### [facility] [address] [place] [address], [place] POC GLUCOSE LABon 04-15-2021 Glucose [Mass/Vol] 230 mg/dL High 70-100 [facility] Comment on above: Performed By: #### 8 5499 #### [facility] [address] [place] [address], [place] Glucose [Mass/Vol] 260 mg/dL High 70-100 [facility] Comment on above: Performed By: #### 8 5499 #### [facility] [address] [place] [address], [place] Glucose [Mass/Vol] 273 mg/dL High 70-100 [facility] Comment on above: Performed By: #### 9 9909, 03288, 10449, 91420 #### [facility] [address] [place] [address], [place] Glucose [Mass/Vol] 168 mg/dL High 70-100 [facility] Comment on above: Performed By: #### 8 5499 #### [facility] [address] [place] [address], [place] PROTHROMBIN TIMEon INR Coag (PPP) [Relative time] 1.77 {INR} High 0.91-1.16 [facility] Comment on above: Order Comment: No: D o not add to previous draw Result Comment: [facility] P RECOMMENDED INR FOR WARFARIN [...] 1995;108:231S-246S. Performed By: #### 3 5200 #### [facility] [address] [facility] [place] [place] [address], [facility] PT Coag (PPP) [Time] 20.7 s High 12.3-14.8 [facility] Comment on above: Order Comment: No: D o not add to previous draw Result Comment: ALL RESULTS MUST BE INTERPRETED WITH RESPECT TO BLOOD DRAWING ARTIFACT OR DILUTION ERROR OF ANTICOAGULANT AT THE TIME OF SAMPLING. Performed By: #### 3 5200 #### [facility] [address] [place] [address], [place] INR Coag (PPP) [Relative time] 1.80 {INR} High 0.91-1.16 [facility] Comment on above: Order Comment: [...] 1995;108:231S-246S. Performed By: #### 8 5499 #### [facility] [address] [facility]. [address] PT Coag (PPP) [Time] 21.0 s High 12.3-14.8 [facility] Comment on above: Order Comment: Unkno wn Result Comment: ALL RESULTS MUST BE INTERPRETED WITH RESPECT TO BLOOD DRAWING ARTIFACT OR DILUTION ERROR OF ANTICOAGULANT AT THE TIME OF SAMPLING. Performed By: #### 8 5499 #### [facility] [address] [place] [address], [facility] BASIC METABOLIC PANELon 05-2 Calcium [Mass/Vol] 9.4 mg/dL Normal 8.6-10.3 [facility] Comment on above: Order Comment: No: D o not add to previous draw Performed By: #### 8 5499 #### [facility] [address] [place] [address], [facility] Chloride [Moles/Vol] 95 mmol/L Low 98-107 [facility] Comment on above: Order Comment: No: D o not add to previous draw Performed By: #### 8 5499 #### [facility] [address] [place] [address], [facility] CO2 [Moles/Vol] 35 mmol/L High 21-31 [facility] Comment on above: Order Comment: No: D o not add to previous draw Performed By: #### 8 5499 #### [facility] [address] [place] [address], [place] Creatinine [Mass/Vol] 1.77 mg/dL High 0.70-1.30 [facility] Comment on above: Order Comment: No: D o not add to previous draw Performed By: #### 8 5499 #### [facility] [address] [place] [address], [place] eGFR- 47 ml/min/1.73sq m Abnormal >60 [facility] Comment on above: Order Comment: No: D o not add to previous draw Performed By: #### 8 5499 #### [facility] [address] [place] [address], [place] eGFR- non- 39 ml/min/1.73sq m Abnormal >60 [facility] Comment on above: Order Comment: No: D o not add to previous draw Performed By: #### 8 5499 #### [facility] [address] [place] [address], [place] Glucose [Mass/Vol] 135 mg/dL High 70-100 [facility] Comment on above: Order Comment: No: D o not add to previous draw Performed By: #### 8 5499 #### [facility] [address] [place] [address], [place] Potassium [Moles/Vol] 3.7 mmol/L Normal 3.5-5.1 [facility] Comment on above: Order Comment: No: D o not add to previous draw Performed By: #### 8 5499 #### [facility] [address] [place] [address], [place] Sodium [Moles/Vol] 140 mmol/L Normal 136-145 [facility] Comment on above: Order Comment: No: D o not add to previous draw Performed By: #### 8 5499 #### [facility] [address] [facility] [place] [address], [facility] Urea nitrogen [Mass/Vol] 43 mg/dL High 7-25 [facility] Comment on above: Order Comment: No: D o not add to previous draw Performed By: #### 8 5499 #### [facility] [address] [facility] [place] [address], [facility] CBC W/DIFFon 04-14-2021 ABS IMM GRANS 0.0 10*3/uL Normal 0.0-0.2 [facility] Comment on above: Order Comment: No: D o not add to previous draw Performed By: #### 8 5499 #### [facility] [address] [facility] [address] ABS NEUTROPHILS 6.4 10*3/uL Normal 1.6-7.6 [facility] Comment on above: Order Comment: No: D o not add to previous draw Performed By: #### 8 5499 #### [facility] [address] [facility] [place] [place] [address], [facility] Basophils (Bld) [#/Vol] 0.0 10*3/uL Normal 0.0-0.2 [facility] Comment on above: Order Comment: No: D o not add to previous draw Performed By: #### 8 5499 #### [facility] [address] [facility] [address], [facility] Basophils/100 WBC (Bld) 0.3 % Normal 0.0-1.0 [facility] Comment on above: Order Comment: No: D o not add to previous draw Performed By: #### 8 5499 #### [facility] [address] [facility] [address], [facility] Eosinophils (Bld) [#/Vol] 0.4 10*3/uL Normal 0.0-0.5 [facility] Comment on above: Order Comment: No: D o not add to previous draw Performed By: #### 8 5499 #### [facility] [address] [place] [address], [facility] Eosinophils/100 WBC (Bld) 4.0 % Normal 0.0-6.0 [facility] Comment on above: Order Comment: No: D o not add to previous draw Performed By: #### 8 5499 #### [facility] [address] Erythrocyte distribution width (RBC) [Ratio] 16.6 % High 11.5-15.0 [facility] Comment on above: Order Comment: No: D o not add to previous draw Performed By: #### 8 [id number] #### [facility] [address] Hematocrit (Bld) [Volume fraction] 35.5 % Low 39.0-50.0 [facility] Comment on above: Order Comment: No: D o not add to previous draw Performed By: #### 8 5499 #### [facility] [address] [facility] Hemoglobin (Bld) [Mass/Vol] 10.9 g/dL Low 13.0-17.0 [facility] Comment on above: Order Comment: No: D o not add to previous draw Performed By: #### 8 5499 #### [facility] [address] [facility] [place] [address], [facility] IMMATURE GRANS 0.3 % Normal 0.0-1.0 [facility] Comment on above: Order Comment: No: D o not add to previous draw Performed By: #### 8 [id number] #### [facility] [address] [facility] [place] [place] [address], [facility] Lymphocytes (Bld) [#/Vol] 1.6 10*3/uL Normal 1.2-4.0 [facility] [facility] Comment on above: Order Comment: No: D o not add to previous draw Performed By: #### 8 [id number] #### [facility] [address] [place] [address], [facility] Lymphocytes/100 WBC (Bld) 17.3 % Low 20.0-45.0 [facility] Comment on above: Order Comment: No: D o not add to previous draw Performed By: #### 8 [id number] #### [facility] [address] [place] [id number], [facility] MCH (RBC) [Entitic mass] 27.0 pg Normal 27.0-33.0 [facility] Comment on above: Order Comment: No: D o not add to previous draw Performed By: #### 8 [id number] #### [facility] [address] [place] [address], [facility] MCHC (RBC) [Mass/Vol] 30.7 g/dL Low 32.0-35.0 [facility] Comment on above: Order Comment: No: D o not add to previous draw Performed By: #### 8 [id number] #### [facility] [address] [address], [facility] MCV (RBC) [Entitic vol] 88.1 fL Normal 82.0-98.0 [facility] Comment on above: Order Comment: No: D o not add to previous draw Performed By: #### 8 [id number] #### [facility] [address] [facility] [address], [facility] Monocytes (Bld) [#/Vol] 0.7 10*3/uL Normal 0.1-1.0 [facility] Comment on above: Order Comment: No: D o not add to previous draw Performed By: #### 8 [id number] #### [facility] [address] [place] [id number], [facility] MONOS 7.6 % Normal 5.0-12.0 [facility] Comment on above: Order Comment: No: D o not add to previous draw Performed By: #### 8 [id number] #### [facility] [address] [place] [address], [facility] Neutrophils/100 WBC (Bld) 70.5 % Normal 40.0-72.0 [facility] Comment on above: Order Comment: No: D o not add to previous draw Performed By: #### 8 [id number] #### [facility] [address] [place] [address], [facility] Nucleated RBC/100 WBC (Bld) [Ratio] 0 % Normal 0-0 [facility] Comment on above: Order Comment: No: D o not add to previous draw Performed By: #### 8 [id number] #### [facility] [address] [facility] [place] [place] [address], [facility] PLAT CNT 157 10*3/uL Normal 150-400 [facility] Comment on above: Order Comment: No: D o not add to previous draw Performed By: #### 8 [id number] #### [facility] [address] [facility] [place] [place] [address], [facility] RBC (Bld) [#/Vol] 4.03 10*6/uL Low 4.20-5.70 [facility] Comment on above: Order Comment: No: D o not add to previous draw Performed By: #### 8 [id number] #### [facility] [address] [facility]. [place] [id number], [facility] WBC (Bld) [#/Vol] 9.10 10*3/uL Normal 4.00-10.60 [facility] Comment on above: Order Comment: No: D o not add to previous draw Performed By: #### 8 [id number] #### [facility] [address] [place] [id number], [facility] DIGOXINon 04-14-2021 Digoxin [Mass/Vol] 1.0 ng/mL Normal 0.7-2.0 [facility] Comment on above: Order Comment: Yes: Add to Previous draw if able Performed By: #### 8 [id number] #### [facility] [address] [place] [address], [facility] MAGNESIUM BLOODon 04-14-2021 Magnesium [Mass/Vol] 2.2 mg/dL Normal 1.9-2.7 [facility] Comment on above: Order Comment: No: D o not add to previous draw Performed By: #### 8 [id number] #### [facility] [address] [place] [address], [facility] POC GLUCOSE LABon 04-14-2021 Glucose [Mass/Vol] 194 mg/dL High 70-100 [facility] Comment on above: Performed By: #### 8 [id number] #### [facility] [address] [place] [address], [facility] Glucose [Mass/Vol] 188 mg/dL High 70-100 [facility] Comment on above: Performed By: #### 9 9909, 77970, 37896, 90920 #### [facility] [address] [place] [address], [facility] Glucose [Mass/Vol] 130 mg/dL High 70-100 [facility] Comment on above: Performed By: #### 9 9909, 95797, 26858, 32207 #### [facility] [address] [place] [address], [facility] PROTHROMBIN TIMEon INR Coag (PPP) [Relative time] 1.92 {INR} High 0.91-1.16 [facility] Comment on above: Order Comment: [...] CHEST 1995;108:231S-246S. Performed By: #### 9 9909, 55014, 39378, 85258 #### [facility] [address] [place] [address], [facility] PT Coag (PPP) [Time] 22.1 s High 12.3-14.8 [facility] Comment on above: Order Comment: No: D o not add to previous draw Result Comment: ALL RESULTS MUST BE INTERPRETED WITH RESPECT TO BLOOD DRAWING ARTIFACT OR DILUTION ERROR OF ANTICOAGULANT AT THE TIME OF SAMPLING. Performed By: #### 9 9909, 02329, 63516, 74003 #### [facility] [address] [place] [address], [facility] INR Coag (PPP) [Relative time] 1.83 {INR} High 0.91-1.16 [facility] Comment on above: Order Comment: [...] 1995;108:231S-246S. Performed By: #### 3 [id number] #### [facility] [address] [place] [id number], [facility] PT Coag (PPP) [Time] 21.2 s High 12.3-14.8 [facility] Comment on above: Order Comment: No: D o not add to previous draw Result Comment: ALL RESULTS MUST BE INTERPRETED WITH RESPECT TO BLOOD DRAWING ARTIFACT OR DILUTION ERROR OF ANTICOAGULANT AT THE TIME OF SAMPLING. Performed By: #### 3 [id number] #### [facility] [address] [place] [address], [facility] BASIC METABOLIC PANELon 05-2 Calcium [Mass/Vol] 8.5 mg/dL Low 8.6-10.3 [facility] Comment on above: Order Comment: No: D o not add to previous draw Performed By: #### 9 9909, 86465, 41475, 91107 #### [facility] [address] [place] [address], [facility] Chloride [Moles/Vol] 98 mmol/L Normal 98-107 [facility] Comment on above: Order Comment: No: D o not add to previous draw Performed By: #### 9 9909, 95819, 60426, 45432 #### [facility] [address] [place] [address], [place] CO2 [Moles/Vol] 32 mmol/L High 21-31 [facility] Comment on above: Order Comment: No: D o not add to previous draw Performed By: #### 9 9909, 02328, 73135, 51326 #### [facility] [address] [place] [address], [place] Creatinine [Mass/Vol] 1.77 mg/dL High 0.70-1.30 [facility] Comment on above: Order Comment: No: D o not add to previous draw Performed By: #### 9 9909, 17389, 18185, 18918 #### [facility] [address] [place] [address], [place] eGFR- 47 ml/min/1.73sq m Abnormal >60 [facility] Comment on above: Order Comment: No: D o not add to previous draw Performed By: #### 9 9909, 51859, 17022, 19745 #### [facility] [address] [place] [address], [place] eGFR- non- 39 ml/min/1.73sq m Abnormal >60 [facility] Comment on above: Order Comment: No: D o not add to previous draw Performed By: #### 9 9909, 53775, 23801, 70972 #### [facility] [address] [place] [address], [place] Glucose [Mass/Vol] 129 mg/dL High 70-100 [facility] Comment on above: Order Comment: No: D o not add to previous draw Performed By: #### 9 9909, 73119, 40655, 49369 #### [facility] [address] [place] [address], [place] Potassium [Moles/Vol] 3.8 mmol/L Normal 3.5-5.1 [facility] Comment on above: Order Comment: No: D o not add to previous draw Performed By: #### 9 9909, 04284, 71261, 14463 #### [facility] [address] [place] [address], [place] Sodium [Moles/Vol] 138 mmol/L Normal 136-145 [facility] Comment on above: Order Comment: No: D o not add to previous draw Performed By: #### 9 9909, 59655, 28771, 18631 #### [facility] [address] [place] [address], [place] Urea nitrogen [Mass/Vol] 39 mg/dL High 7-25 [facility] Comment on above: Order Comment: No: D o not add to previous draw Performed By: #### 9 9909, 43162, 70084, 59093 #### [facility] [address] [place] [address], [facility] CBC COMPLETE BLOOD COUNTon 04-13-2021 Erythrocyte distribution width (RBC) [Ratio] 16.8 % High 11.5-15.0 [facility] Comment on above: Order Comment: No: D o not add to previous draw Performed By: #### 8 [id number] #### [facility] [address] [place] [address], [facility] Hematocrit (Bld) [Volume fraction] 33.7 % Low 39.0-50.0 [facility] Comment on above: Order Comment: No: D o not add to previous draw Performed By: #### 8 [id number] #### [facility] [address] [place] [address], [facility] Hemoglobin (Bld) [Mass/Vol] 10.2 g/dL Low 13.0-17.0 [facility] Comment on above: Order Comment: No: D o not add to previous draw Performed By: #### 8 [id number] #### [facility] [address] [place] [address], [place] MCH (RBC) [Entitic mass] 27.1 pg Normal 27.0-33.0 [facility] Comment on above: Order Comment: No: D o not add to previous draw Performed By: #### 8 [id number] #### [facility] [address] [place] [address], [place] MCHC (RBC) [Mass/Vol] 30.3 g/dL Low 32.0-35.0 [facility] Comment on above: Order Comment: No: D o not add to previous draw Performed By: #### 8 [id number] #### [facility] [address] [place] [address], [facility] MCV (RBC) [Entitic vol] 89.6 fL Normal 82.0-98.0 [facility] Comment on above: Order Comment: No: D o not add to previous draw Performed By: #### 8 [id number] #### [facility] [address] [place] [address], [facility] Nucleated RBC/100 WBC (Bld) [Ratio] 0 % Normal 0-0 [facility] Comment on above: Order Comment: No: D o not add to previous draw Performed By: #### 8 [id number] #### [facility] [address] [place] [address], [facility] PLAT CNT 131 10*3/uL Low 150-400 [facility] Comment on above: Order Comment: No: D o not add to previous draw Performed By: #### 8 [id number] #### [facility] [address] [place] [address], [facility] RBC (Bld) [#/Vol] 3.76 10*6/uL Low 4.20-5.70 [facility] Comment on above: Order Comment: No: D o not add to previous draw Performed By: #### 8 [id number] #### [facility] [address] [place] [address], [facility] WBC (Bld) [#/Vol] 11.41 10*3/uL High 4.00-10.60 [facility] Comment on above: Order Comment: No: D o not add to previous draw Performed By: #### 8 [id number] #### [facility] [address] [place] [id number], [facility] MAGNESIUM BLOODon 04-13-2021 Magnesium [Mass/Vol] 2.3 mg/dL Normal 1.9-2.7 [facility] Comment on above: Order Comment: No: D o not add to previous draw Performed By: #### 9 9909, 76003, 69009, 39399 #### [facility] [address] [place] [address], [place] POC GLUCOSE LABon 04-13-2021 Glucose [Mass/Vol] 210 mg/dL High 70-100 [facility] Comment on above: Performed By: #### 8 [id number] #### [facility] [address] [place] [address], [place] Glucose [Mass/Vol] 90 mg/dL Normal 70-100 [facility] Comment on above: Performed By: #### 9 9909, 49572, 39170, 17703 #### [facility] [address] [place] [address], [place] Glucose [Mass/Vol] 104 mg/dL High 70-100 [facility] Comment on above: Performed By: #### 8 5499 #### [facility] [address] [place] [address], [place] Glucose [Mass/Vol] 77 mg/dL Normal 70-100 [facility] Comment on above: Performed By: #### 9 9909, 73268, 81722, 13003 #### [facility] [address] [place] [address], [place] Glucose [Mass/Vol] 113 mg/dL High 70-100 [facility] Comment on above: Performed By: #### 9 9909, 80467, 00396, 99583 #### [facility] [address] [place] [address], [place] PROTHROMBIN TIMEon INR Coag (PPP) [Relative time] 2.19 {INR} High 0.91-1.16 [facility] Comment on above: Order Comment: [...] 1995;108:231S-246S. Performed By: #### 3 5200 #### [address] PT Coag (PPP) [Time] 24.5 s High 12.3-14.8 [facility] Comment on above: Order Comment: No: D o not add to previous draw Result Comment: ALL RESULTS MUST BE INTERPRETED WITH RESPECT TO BLOOD DRAWING ARTIFACT OR DILUTION ERROR OF ANTICOAGULANT AT THE TIME OF SAMPLING. Performed By: #### 3 5200 #### [address] TROPONIN-Ion 04-13-2021 Troponin I.cardiac [Mass/Vol] 0.05 ng/mL High 0.00-0.04 [facility] Comment on above: Order Comment: No: D o not add to previous draw Result Comment: REFE RENCE RANGES: 0.00 - 0.04 ng/ml NORMAL 0.05 - 0.50 ng/ml INDETERMINATE > 0.50 ng/ml CONSISTENT WITH AN M.I. Performed By: #### 3 5200 #### [address] US ABDOMEN LIMITED FOR ASCIT ESon 04-13-2021 US ABDOMEN LIMITED FOR ASCITES [facility] Department of Radiology [address] [place] [id number] Patient Name: ADWOA PORTER : 1955 Sex: M Age: Race: White Pt. Location: [address] [place] [id number] Patient Status: I Ordered Date: 04/13/2021 3:45:00 [...] reports Electronically signed: Shannon Weathers. Transcribed by: [email or web address], User Resident: BIANCA NICOLE Electronically Signed by: SHANNON WEATHERS @ 04/13/2021 04:07 PM I personally read this/these film(s) with this resident Normal [facility] Comment on above: Order Comment: No: D o not add to previous draw *BLOOD CULTUREon 04-12-2021 *BLOOD CULTURE Clinical Report: (D) Specimen: BLOOD CULTURE Collected: 04/12/2021 20:24 Status: Final Last Updated: 04/18/2021 07:10 (1) Right AC 2019 CULT RES (Final) No Growth Day 5 Normal [facility] Comment on above: Order Comment: Right AC 2019 Performed By: #### 8 [id number] #### [facility] [address] *BLOOD CULTURE Clinical Report: (D) Specimen: BLOOD CULTURE Collected: 04/12/2021 20:24 Status: Final Last Updated: 04/18/2021 07:10 (1) Left AC 2021 CULT RES (Final) No Growth Day 5 Normal [facility] Comment on above: Order Comment: Left AC 2021 Performed By: #### 8 [id number] #### [facility] [address] BNP (B-TYPE NATRIURETIC PEPT JJ)on 04-12-2021 Natriuretic peptide B (Bld) [Mass/Vol] 502 pg/mL High 0-100 [facility] Comment on above: Order Comment: No: D o not add to previous draw Result Comment: Give n the appropriate clinical setting a BNP result of >100 pg/mL indicates congestive heart failure. Performed By: #### 9 9909, 45587, 50226, 67568 #### [facility] [address] CBC W/DIFFon 04-12-2021 ABS IMM GRANS 0.1 10*3/uL Normal 0.0-0.2 [facility] Comment on above: Performed By: #### 8 [id number] #### [facility] [address] ABS NEUTROPHILS 10.5 10*3/uL High 1.6-7.6 [facility] Comment on above: Performed By: #### 8 5499 #### [facility] [address] [place] [address], [facility] Basophils (Bld) [#/Vol] 0.0 10*3/uL Normal 0.0-0.2 [facility] Comment on above: Performed By: #### 8 [id number] #### [facility] [address] Basophils/100 WBC (Bld) 0.2 % Normal 0.0-1.0 [facility] Comment on above: Performed By: #### 8 [id number] #### [facility] [address] [place] [address], [facility] Eosinophils (Bld) [#/Vol] 0.3 10*3/uL Normal 0.0-0.5 [facility] Comment on above: Performed By: #### 8 [id number] #### [facility] [address] [place] [address], [facility] Eosinophils/100 WBC (Bld) 2.1 % Normal 0.0-6.0 [facility] Comment on above: Performed By: #### 8 [id number] #### [facility] [address] [facility] [address] Erythrocyte distribution width (RBC) [Ratio] 17.1 % High 11.5-15.0 [facility] Comment on above: Performed By: #### 8 [id number] #### [facility] [address] [facility] [address] Hematocrit (Bld) [Volume fraction] 34.8 % Low 39.0-50.0 [facility] Comment on above: Performed By: #### 8 [id number] #### [facility] [address] [facility] [address] Hemoglobin (Bld) [Mass/Vol] 10.6 g/dL Low 13.0-17.0 [facility] Comment on above: Performed By: #### 8 [id number] #### [facility] [address] [facility] [place] [place] [address], [facility] IMMATURE GRANS 0.4 % Normal 0.0-1.0 [facility] Comment on above: Performed By: #### 8 [id number] #### [facility] [address] [facility] [place] [address], [facility] Lymphocytes (Bld) [#/Vol] 1.4 10*3/uL Normal 1.2-4.0 [facility] Comment on above: Performed By: #### 8 [id number] #### [facility] [address] [facility] [address], [facility] Lymphocytes/100 WBC (Bld) 10.5 % Low 20.0-45.0 [facility] Comment on above: Performed By: #### 8 [id number] #### [facility] [address] [facility] [address], [facility] MCH (RBC) [Entitic mass] 27.3 pg Normal 27.0-33.0 [facility] Comment on above: Performed By: #### 8 [id number] #### [facility] [address] [facility] [address] MCHC (RBC) [Mass/Vol] 30.5 g/dL Low 32.0-35.0 [facility] Comment on above: Performed By: #### 8 [id number] #### [facility] [address] [facility] [place] [place] [address], [facility] MCV (RBC) [Entitic vol] 89.7 fL Normal 82.0-98.0 [facility] Comment on above: Performed By: #### 8 [id number] #### [facility] [address] [facility] [place] [place] [address], [facility] Monocytes (Bld) [#/Vol] 0.8 10*3/uL Normal 0.1-1.0 [facility] Comment on above: Performed By: #### 8 [id number] #### [facility] [address] [place] [address], [facility] MONOS 6.4 % Normal 5.0-12.0 [facility] Comment on above: Performed By: #### 8 [id number] #### [facility] [address] [facility] [address], [facility] Neutrophils/100 WBC (Bld) 80.4 % High 40.0-72.0 [facility] Comment on above: Performed By: #### 8 [id number] #### [facility] [address] Nucleated RBC/100 WBC (Bld) [Ratio] 0 % Normal 0-0 [facility] Comment on above: Performed By: #### 8 [id number] #### [facility] [address] [place] [address], [facility] PLAT CNT 138 10*3/uL Low 150-400 [facility] Comment on above: Performed By: #### 8 [id number] #### [facility] [address] [facility] RBC (Bld) [#/Vol] 3.88 10*6/uL Low 4.20-5.70 [facility] Comment on above: Performed By: #### 8 [id number] #### [facility] [address] [facility] [place] [address], [facility] WBC (Bld) [#/Vol] 13.05 10*3/uL High 4.00-10.60 [facility] Comment on above: Performed By: #### 8 [id number] #### [facility] [address] [facility] [place] [place] [address], [facility] LIVER BATTERYon 04-12-2021 Albumin [Mass/Vol] 3.8 g/dL Normal 3.5-5.7 [facility] Comment on above: Order Comment: No: D o not add to previous draw Performed By: #### 9 9909, 35390, 34734, 40657 #### [facility] [address] [facility] [place] [place] [address], [facility] ALKALINE PHOSPH 80 IU/L Normal 34-104 [facility] Comment on above: Order Comment: No: D o not add to previous draw Performed By: #### 9 9909, 27371, 35117, 04189 #### [facility] [address] [place] [address], [place] ALT [Catalytic activity/Vol] 10 U/L Normal 7-52 [facility] Comment on above: Order Comment: No: D o not add to previous draw Performed By: #### 9 9909, 42701, 50456, 14768 #### [facility] [address] [place] [address], [place] AST [Catalytic activity/Vol] 15 U/L Normal 13-39 [facility] Comment on above: Order Comment: No: D o not add to previous draw Performed By: #### 9 9909, 41781, 26434, 88988 #### [facility] [address] [place] [address], [place] Bilirubin [Mass/Vol] 1.0 mg/dL Normal 0.3-1.0 [facility] Comment on above: Order Comment: No: D o not add to previous draw Performed By: #### 9 9909, 41001, 36863, 36497 #### [facility] [address] [place] [address], [place] Bilirubin.direct [Mass/Vol] 0.5 mg/dL High 0.0-0.2 [facility] Comment on above: Order Comment: No: D o not add to previous draw Performed By: #### 9 9909, 81626, 37031, 56095 #### [facility] [address] [place] [address], [place] Protein [Mass/Vol] 7.2 g/dL Normal 6.0-8.3 [facility] Comment on above: Order Comment: No: D o not add to previous draw Performed By: #### 9 [id number], [id number], [id number], [id number] #### [facility] [address] [place] [address], [place] MAGNESIUM BLOODon 04-12-2021 Magnesium [Mass/Vol] 2.5 mg/dL Normal 1.9-2.7 [facility] Comment on above: Order Comment: No: D o not add to previous draw Performed By: #### 9 [id number], [id number] #### [facility] [address] [place] [address], [facility] PHOSPHORUS BLOODon Phosphate [Mass/Vol] 3.7 mg/dL Normal 2.5-5.0 [facility] Comment on above: Order Comment: No: D o not add to previous draw Performed By: #### 9 [id number], [id number], [id number], [id number] #### [facility] [address] [place] [address], [facility] POC GLUCOSE LABon 04-12-2021 Glucose [Mass/Vol] 190 mg/dL High 70-100 [facility] Comment on above: Performed By: #### 8 [id number] #### [facility] [address] [place] [address], [place] Glucose [Mass/Vol] 117 mg/dL High 70-100 [facility] Comment on above: Performed By: #### 8 [id number] #### [facility] [address] [place] [address], [facility] PORTABLE CHEST 1 VIEWon 03-20 PORTABLE CHEST 1 VIEW [facility] Department of Radiology [address] [place] [id number] Patient Name: ADWOA PORTER : 1955 Sex: M Age: Race: White Pt. Location: [id number] Patient Status: I Ordered Date: 04/12/2021 4:55:00 [...] edema. Electronically signed: Michaelle Villalba. Transcribed by: [id number], User Resident: Electronically Signed by: MICHAELLE VILLALBA @ 04/12/2021 05:27 PM Normal [facility] Comment on above: Order Comment: evalu ate for Pulmonary Edema PROTHROMBIN TIMEon INR Coag (PPP) [Relative time] 2.58 {INR} High 0.91-1.16 [facility] Comment on above: Order Comment: [...] 1995;[id number]. Performed By: #### 3 [id number] #### [facility] [address] PT Coag (PPP) [Time] 27.9 s High 12.3-14.8 [facility] Comment on above: Order Comment: No: D o not add to previous draw Result Comment: ALL RESULTS MUST BE INTERPRETED WITH RESPECT TO BLOOD DRAWING ARTIFACT OR DILUTION ERROR OF ANTICOAGULANT AT THE TIME OF SAMPLING. Performed By: #### 3 [id number] #### [facility] [address] TROPONIN-Ion 04-12-2021 Troponin I.cardiac [Mass/Vol] 0.05 ng/mL High 0.00-0.04 [facility] Comment on above: Order Comment: No: D o not add to previous draw Result Comment: REFE RENCE RANGES: 0.00 - 0.04 ng/ml NORMAL 0.05 - 0.50 ng/ml INDETERMINATE > 0.50 ng/ml CONSISTENT WITH AN M.I. Performed By: #### 9 [id number], [id number], [id number], [id number] #### [facility] [address] Provider Letteron 11-16-2020 Provider Letter (Inserted Image. Radha ble to display) November 16, 2020 ADWOA PORTER [address] [place] [id number] ADWOA PORTER 1955 Dear Adwoa, You missed [...] [facility] [address], [place] [address] [facility] Coding Summary.on 04-05-2020 Coding Summary. CODING DATE: 020 FINAL [facility] DSC STATUS: Home (Routine DC) PAYOR: [...] CphT Date Saved: 04/05/2020 10:26 am [facility] Aerobic cultureon 12-04-2019 Aerobic Culture Staphylococcus aureus [facility] Aerobic Culture Klebsiella oxytoca F [facility] Transfusion reaction panel ( ABO, Rh)on 12-04-2019 Microscopic observation Gram stain Nom (Unsp spec) [facility] Vital Signs Date Time Vital Sign Value Performing Clinician Facility 02-05-2024 16:00-0400 Body temperature 97.2 [degF] DO Vinnie Stewart Work Phone: [facility] 02-05-2024 16:00-0400 Diastolic blood pressure 80 mm[Hg] DO Vinnie Stewart Work Phone: [facility] 02-05-2024 16:00-0400 Heart rate 85 /min DO Vinnie Stewart Work Phone: [facility] 02-05-2024 16:00-0400 Respiratory rate 18 /min DO Vinnie Stewart Work Phone: [facility] 02-05-2024 16:00-0400 SaO2% (BldA) [Mass fraction] 100 % DO Vinnie Stewart Work Phone: [facility] 02-05-2024 16:00-0400 Systolic blood pressure 138 mm[Hg] DO Vinnie Stewart Work Phone: [facility] 02-05-2024 08:45-0400 Inhaled oxygen flow rate 2 L/min DO Vinnie Stewart Work Phone: [facility] 02-05-2024 06:00-0400 Body weight 95.4 kg DO Vinnie Stewart Work Phone: [facility] 02-04-2024 16:40-0400 Body height 175.26 cm DO Vinnie Stewart Work Phone: [facility] 02-01-2024 11:52-0400 Inhaled oxygen concentration 10 % DO Vinnie Stewart Work Phone: [facility] 11-22-2023 15:15-0500 Body height 170.18 cm Vinnie Stewart Other [facility] 11-22-2023 15:15-0500 Body mass index (BMI) [Ratio] 29.6 kg/m2 Vinnie Stewart Other [facility] [employer] Other 11-22-2023 15:15-0500 Body temperature 97.9 [degF] Vinnie Stewart Other [facility] [employer] Other 11-22-2023 15:15-0500 Body weight 85.73 kg Vinnie Stewart Other [facility] [employer] Other 11-22-2023 15:15-0500 Body weight 85.72 kg DO Vinnie Stewart Work Phone: [facility] 11-22-2023 15:15-0500 Diastolic blood pressure 60 mm[Hg] Vinnie Stewart Other [facility] 11-22-2023 15:15-0500 Respiratory rate 18 /min Vinnie Stewart Other [employer] Other 11-22-2023 15:15-0500 SaO2% (BldA) [Mass fraction] 98 % Vinnie Stewart Other [employer] Other 11-22-2023 15:15-0500 Systolic blood pressure 122 mm[Hg] Vinnie Stewart Other [facility] 11-15-2023 13:40-0500 Body height 170.18 cm Simba Jac Other [facility] 11-15-2023 13:40-0500 Body mass index (BMI) [Ratio] 28.94 kg/m2 Simba Jac Other [facility] [employer] Other 11-15-2023 13:40-0500 Body temperature 96.4 [degF] Simba Jac Other [employer] Other 11-15-2023 13:40-0500 Body weight 83.83 kg Simba Jac Other [employer] Other 11-15-2023 13:40-0500 Body weight 83.82 kg DO Vinnie Stewart Work Phone: [facility] 11-15-2023 13:40-0500 Diastolic blood pressure 62 mm[Hg] Simba Jac Other [facility] 11-15-2023 13:40-0500 Respiratory rate 18 /min Simba Jac Other [employer] Other 11-15-2023 13:40-0500 SaO2% (BldA) [Mass fraction] 92 % Simba Jac Other [employer] Other 11-15-2023 13:40-0500 Systolic blood pressure 110 mm[Hg] Simba Jac Other [facility] 11-13-2023 13:30-0500 Body height 170.18 cm Brittnee Scally Other [facility] 11-13-2023 13:30-0500 Body mass index (BMI) [Ratio] 28.94 kg/m2 Brittnee Scally Other [facility] [employer] Other 11-13-2023 13:30-0500 Body weight 83.83 kg Brittnee Scally Other [facility] [employer] Other 11-13-2023 13:30-0500 Body weight 83.82 kg DO Vinnie Lucasley Work Phone: [facility] 11-13-2023 13:30-0500 Diastolic blood pressure 63 mm[Hg] Brittnee Scally Other [facility] 11-13-2023 13:30-0500 Respiratory rate 18 /min Brittnee Scally Other [employer] Other 11-13-2023 13:30-0500 SaO2% (BldA) [Mass fraction] 95 % Brittnee Scally Other [employer] Other 11-13-2023 13:30-0500 Systolic blood pressure 107 mm[Hg] Brittnee Scally Other [facility] 10-08-2023 10:00-0500 Body height 170.18 cm Brittnee Scally Other [facility] 10-08-2023 10:00-0500 Body mass index (BMI) [Ratio] 30.57 kg/m2 Brittnee Scally Other [employer] Other 10-08-2023 10:00-0500 Body weight 88.54 kg Brittnee Scally Other [facility] 09-18-2023 15:00-0400 Body height 170.18 cm Brittnee Scally Other [employer] Other 09-18-2023 15:00-0400 Diastolic blood pressure 72 mm[Hg] Brittnee Scally Other [employer] Other 09-18-2023 15:00-0400 Respiratory rate 18 /min Brittnee Scally Other [employer] Other 09-18-2023 15:00-0400 SaO2% (BldA) [Mass fraction] 96 % Brittnee Scally Other [employer] Other 09-18-2023 15:00-0400 Systolic blood pressure 115 mm[Hg] Brittnee Scally Other [employer] Other 06-29-2023 10:30-0400 Body height 170.18 cm Vinnie Stewart Other [employer] Other 06-29-2023 10:30-0400 Body mass index (BMI) [Ratio] 31.99 kg/m2 Vinnie Stewart Other [employer] Other 06-29-2023 10:30-0400 Body weight 92.67 kg Vinnie Stewart Other [employer] Other 06-29-2023 10:30-0400 Diastolic blood pressure 72 mm[Hg] Vinnie Stewart Other [employer] Other 06-29-2023 10:30-0400 Respiratory rate 18 /min Vinnie Stewart Other [employer] Other 06-29-2023 10:30-0400 SaO2% (BldA) [Mass fraction] 95 % Vinnie Stewart Other [employer] Other 06-29-2023 10:30-0400 Systolic blood pressure 124 mm[Hg] Vinnie Stewart Other [employer] Other 06-29-2023 08:15-0400 Body height 170.18 cm Brittnee Scally Other [employer] Other 06-29-2023 08:15-0400 Diastolic blood pressure 62 mm[Hg] Brittnee Scally Other [employer] Other 06-29-2023 08:15-0400 Respiratory rate 18 /min Brittnee Scally Other [employer] Other 06-29-2023 08:15-0400 SaO2% (BldA) [Mass fraction] 94 % Brittnee Scally Other [employer] Other 06-29-2023 08:15-0400 Systolic blood pressure 104 mm[Hg] Brittnee Scally Other [employer] Other 06-18-2023 11:30-0400 Body height 170.18 cm Vinnie Stewart Other [employer] Other 06-18-2023 11:30-0400 Body mass index (BMI) [Ratio] 32.89 kg/m2 Vinnie Stewart Other [employer] Other 06-18-2023 11:30-0400 Body temperature 97.5 [degF] Vinnie Stewart Other [employer] Other 06-18-2023 11:30-0400 Body weight 95.26 kg Vinnie Stewart Other [employer] Other 06-18-2023 11:30-0400 Diastolic blood pressure 72 mm[Hg] Vinnie Stewart Other [employer] Other 06-18-2023 11:30-0400 Respiratory rate 18 /min Vinnie Stewart Other [employer] Other 06-18-2023 11:30-0400 SaO2% (BldA) [Mass fraction] 94 % Vinnie Stewart Other [employer] Other 06-18-2023 11:30-0400 Systolic blood pressure 126 mm[Hg] Vinnie Stewart Other [employer] Other 04-19-2023 11:20-0400 Body height 170.18 cm Simba Jac Other [employer] Other 04-19-2023 11:20-0400 Body mass index (BMI) [Ratio] 32.76 kg/m2 Simba Jac Other [employer] Other 04-19-2023 11:20-0400 Body temperature 97.6 [degF] Simba Jac Other [employer] Other 04-19-2023 11:20-0400 Body weight 94.89 kg Simba Jac Other [employer] Other 04-19-2023 11:20-0400 Diastolic blood pressure 60 mm[Hg] Simba Jac Other [employer] Other 04-19-2023 11:20-0400 Respiratory rate 18 /min Simba Jac Other [employer] Other 04-19-2023 11:20-0400 SaO2% (BldA) [Mass fraction] 98 % Simba Jac Other [employer] Other 04-19-2023 11:20-0400 Systolic blood pressure 120 mm[Hg] Simba Jac Other [employer] Other 03-21-2023 14:00-0400 Body height 170.18 cm Vinnie Stewart Other [employer] Other 03-21-2023 14:00-0400 Body mass index (BMI) [Ratio] 32.42 kg/m2 Vinnie Stewart Other [employer] Other 03-21-2023 14:00-0400 Body weight 93.9 kg Vinnie Stewart Other [employer] Other 03-21-2023 14:00-0400 Diastolic blood pressure 86 mm[Hg] Vinnie Stewart Other [employer] Other 03-21-2023 14:00-0400 Respiratory rate 18 /min Vinnie Stewart Other [employer] Other 03-21-2023 14:00-0400 SaO2% (BldA) [Mass fraction] 94 % Vinnie Stewart Other [employer] Other 03-21-2023 14:00-0400 Systolic blood pressure 132 mm[Hg] Vinnie Stewart Other [employer] Other 02-21-2023 15:45-0400 Body height 170.18 cm Vinnie Stewart Other [employer] Other 02-21-2023 15:45-0400 Body mass index (BMI) [Ratio] 32.57 kg/m2 Vinnie Stewart Other [employer] Other 02-21-2023 15:45-0400 Body weight 94.35 kg Vinnie Stewart Other [employer] Other 02-21-2023 15:45-0400 Diastolic blood pressure 76 mm[Hg] Vinnie Stewart Other [employer] Other 02-21-2023 15:45-0400 Respiratory rate 18 /min Vinnie Stewart Other [employer] Other 02-21-2023 15:45-0400 SaO2% (BldA) [Mass fraction] 97 % Vinnie Stewart Other [employer] Other 02-21-2023 15:45-0400 Systolic blood pressure 134 mm[Hg] Vinnie Stewart Other [employer] Other 02-14-2023 15:48-0400 Body temperature 97.5 [degF] DO Vinnie Stewart Work Phone: [facility] 02-14-2023 15:48-0400 Diastolic blood pressure 80 mm[Hg] DO Vinnie Stewart Work Phone: [facility] 02-14-2023 15:48-0400 Heart rate 86 /min DO Vinnie Stewart Work Phone: [facility] 02-14-2023 15:48-0400 Respiratory rate 16 /min DO Vinnie Lucasley Work Phone: [facility] 02-14-2023 15:48-0400 SaO2% (BldA) [Mass fraction] 98 % DO Vinnie Lucasley Work Phone: [facility] 02-14-2023 15:48-0400 Systolic blood pressure 137 mm[Hg] DO Vinnie Lucasley Work Phone: [facility] 02-14-2023 14:01-0400 Body height 175.26 cm DO Vinnie Lucasley Work Phone: [facility] 02-14-2023 06:00-0400 Body weight 97 kg DO Vinnie Lucasley Work Phone: [facility] 02-13-2023 20:36-0400 Diastolic blood pressure 79 mm[Hg] DO Vinnie Lucasley Work Phone: [facility] 02-13-2023 20:36-0400 Heart rate 86 /min DO Vinnie Stewart Work Phone: [facility] 02-13-2023 20:36-0400 Respiratory rate 16 /min DO Vinnie Lucasley Work Phone: [facility] 02-13-2023 20:36-0400 SaO2% (BldA) [Mass fraction] 94 % DO Vinnie Stewart Work Phone: [facility] 02-13-2023 20:36-0400 Systolic blood pressure 146 mm[Hg] DO Vinnie Stewart Work Phone: [facility] 02-13-2023 15:38-0400 Body height 175.26 cm DO Vinnie Stewart Work Phone: [facility] 02-13-2023 15:38-0400 Body temperature 97.8 [degF] DO Vinnie Stewart Work Phone: [facility] 02-13-2023 15:38-0400 Body weight 96.16 kg DO Vinnie Stewart Work Phone: [facility] 02-09-2023 12:45-0400 Body height 170.18 cm Vinnie Stewart Other [employer] Other 02-09-2023 12:45-0400 Body mass index (BMI) [Ratio] 33.2 kg/m2 Vinnie Stewart Other [employer] Other 02-09-2023 12:45-0400 Body weight 96.16 kg Vinnie Stewart Other [employer] Other 02-09-2023 12:45-0400 Diastolic blood pressure 82 mm[Hg] Vinnie Stewart Other [employer] Other 02-09-2023 12:45-0400 Respiratory rate 18 /min Vinnie Stewart Other [employer] Other 02-09-2023 12:45-0400 SaO2% (BldA) [Mass fraction] 94 % Vinnie Stewart Other [employer] Other 02-09-2023 12:45-0400 Systolic blood pressure 128 mm[Hg] Vinnie Stewart Other [employer] Other 01-17-2023 15:30-0500 Body height 170.18 cm Vinnie Lucasley Other [employer] Other 01-17-2023 15:30-0500 Body mass index (BMI) [Ratio] 36.02 kg/m2 Vinnie Stewart Other [employer] Other 01-17-2023 15:30-0500 Body weight 104.33 kg Vinnie Stewart Other [employer] Other 01-17-2023 15:30-0500 Diastolic blood pressure 82 mm[Hg] Vinnie Stewart Other [employer] Other 01-17-2023 15:30-0500 Respiratory rate 18 /min Vinnie Stewart Other [employer] Other 01-17-2023 15:30-0500 SaO2% (BldA) [Mass fraction] 94 % Vinnie Stewart Other [employer] Other 01-17-2023 15:30-0500 Systolic blood pressure 134 mm[Hg] Vinnie Stewart Other [employer] Other 12-04-2022 13:06-0500 Body height 175.26 cm DO Vinnie Osvaldo Work Phone: [facility] 12-04-2022 13:06-0500 Body weight 100.8 kg DO Vinnie tSewart Work Phone: [facility] 12-04-2022 13:06-0500 Diastolic blood pressure 84 mm[Hg] DO Vinnie Osvaldo Work Phone: [facility] 12-04-2022 13:06-0500 Heart rate 86 /min DO Vinnie Osvaldo Work Phone: [facility] 12-04-2022 13:06-0500 Respiratory rate 20 /min DO Vinnie Stewart Work Phone: [facility] 12-04-2022 13:06-0500 SaO2% (BldA) [Mass fraction] 96 % DO Vinnie Stewart Work Phone: [facility] 12-04-2022 13:06-0500 Systolic blood pressure 129 mm[Hg] DO Vinnie Stewart Work Phone: [facility] 11-07-2022 14:45-0500 Body height 170.18 cm Brittnee Scally Other [employer] Other 11-07-2022 14:45-0500 Body mass index (BMI) [Ratio] 39.7 kg/m2 Brittnee Scally Other [employer] Other 11-07-2022 14:45-0500 Body weight 114.99 kg Brittnee Scally Other [employer] Other 11-07-2022 14:45-0500 Diastolic blood pressure 68 mm[Hg] Brittnee Scally Other [employer] Other 11-07-2022 14:45-0500 Respiratory rate 20 /min Brittnee Scally Other [employer] Other 11-07-2022 14:45-0500 SaO2% (BldA) [Mass fraction] Brittnee Scally Other [employer] Other 11-07-2022 14:45-0500 Systolic blood pressure 108 mm[Hg] Brittnee Scally Other [employer] Other 09-28-2022 13:00-0500 Diastolic blood pressure 67 mm[Hg] Gisselle Dickey Other [employer] Other 09-28-2022 13:00-0500 Respiratory rate 18 /min Gisselle Noble Other [employer] Other 09-28-2022 13:00-0500 SaO2% (BldA) [Mass fraction] 92 % Gisselle Dickey Other [employer] Other 09-28-2022 13:00-0500 Systolic blood pressure 123 mm[Hg] Gisselle Dickey Other [employer] Other 09-28-2022 12:40-0500 Body height 170.18 cm Simba Jac Other [employer] Other 09-28-2022 12:40-0500 Body mass index (BMI) [Ratio] 37.93 kg/m2 Simba Jac Other [employer] Other 09-28-2022 12:40-0500 Body temperature 96.2 [degF] Simba Jac Other [employer] Other 09-28-2022 12:40-0500 Body weight 109.86 kg Simba Jac Other [employer] Other 09-28-2022 12:40-0500 Diastolic blood pressure 81 mm[Hg] Simba Jac Other [employer] Other 09-28-2022 12:40-0500 Respiratory rate 20 /min Simba Jac Other [employer] Other 09-28-2022 12:40-0500 SaO2% (BldA) [Mass fraction] 90 % Simba Jac Other [employer] Other 09-28-2022 12:40-0500 Systolic blood pressure 139 mm[Hg] Simba Jac Other [employer] Other 09-13-2022 14:00-0400 Body height 170.18 cm Vinnie Stewart Other [employer] Other 09-13-2022 14:00-0400 Body mass index (BMI) [Ratio] 35.71 kg/m2 Vinnie Stewart Other [employer] Other 09-13-2022 14:00-0400 Body weight 103.42 kg Vinnie Stewart Other [employer] Other 09-13-2022 14:00-0400 Diastolic blood pressure 81 mm[Hg] Vinnie Stewart Other [employer] Other 09-13-2022 14:00-0400 Respiratory rate 16 /min Vinnie Stewart Other [employer] Other 09-13-2022 14:00-0400 SaO2% (BldA) [Mass fraction] 97 % Vinnie Stewart Other [employer] Other 09-13-2022 14:00-0400 Systolic blood pressure 119 mm[Hg] Vinnie Stewart Other [employer] Other 07-31-2022 15:30-0400 Body height 170.18 cm Brittnee Spain Other [employer] Other 07-31-2022 15:30-0400 Body mass index (BMI) [Ratio] 35.55 kg/m2 Brittnee Scally Other [employer] Other 07-31-2022 15:30-0400 Body weight 102.97 kg Brittnee Scally Other [employer] Other 07-31-2022 15:30-0400 Diastolic blood pressure 78 mm[Hg] Brittnee Scally Other [employer] Other 07-31-2022 15:30-0400 Respiratory rate 20 /min Brittnee Scally Other [employer] Other 07-31-2022 15:30-0400 SaO2% (BldA) [Mass fraction] 95 % Brittnee Scally Other [employer] Other 07-31-2022 15:30-0400 Systolic blood pressure 125 mm[Hg] Brittnee Scally Other [employer] Other 06-20-2022 12:15-0400 Body height 170.18 cm Vinnie Stewart Other [employer] Other 06-20-2022 12:15-0400 Body mass index (BMI) [Ratio] 35.55 kg/m2 Vinnie Stewart Other [employer] Other 06-20-2022 12:15-0400 Body weight 102.97 kg Vinnie Stewart Other [employer] Other 06-20-2022 12:15-0400 Diastolic blood pressure 47 mm[Hg] Vinnie Stewart Other [employer] Other 06-20-2022 12:15-0400 Respiratory rate 18 /min Vinnie Stewart Other [employer] Other 06-20-2022 12:15-0400 SaO2% (BldA) [Mass fraction] 94 % Vinnie Stewart Other [employer] Other 06-20-2022 12:15-0400 Systolic blood pressure 106 mm[Hg] Vinnie Stewart Other [employer] Other 06-06-2022 11:36-0400 Body temperature 98 [degF] DO Vinnie Stewart Work Phone: [facility] 03-02-2022 15:30-0400 Body height 170.18 cm Vinnie Stewart Other [employer] Other 03-02-2022 15:30-0400 Body mass index (BMI) [Ratio] 35.39 kg/m2 Vinnie Stewart Other [employer] Other 03-02-2022 15:30-0400 Body temperature 97.5 [degF] Vinnie Stewart Other [employer] Other 03-02-2022 15:30-0400 Body weight 102.51 kg Vinnie Stewart Other [employer] Other 03-02-2022 15:30-0400 Diastolic blood pressure 74 mm[Hg] Vinnie Stewart Other [employer] Other 03-02-2022 15:30-0400 Respiratory rate 20 /min Vinnie Stewart Other [employer] Other 03-02-2022 15:30-0400 SaO2% (BldA) [Mass fraction] 94 % Vinnie Stewart Other [employer] Other 03-02-2022 15:30-0400 Systolic blood pressure 114 mm[Hg] Vinnie Stewart Other [employer] Other 02-19-2022 12:05-0400 Body height 170.18 cm Ruthie Guzman Other [employer] Other 02-19-2022 12:05-0400 Body mass index (BMI) [Ratio] 35.71 kg/m2 Ruthie Clementemond Other [employer] Other 02-19-2022 12:05-0400 Body temperature 97.4 [degF] Ruthie Clementemond Other [employer] Other 02-19-2022 12:05-0400 Body weight 103.42 kg Ruthie Guzman Other [employer] Other 02-19-2022 12:05-0400 Diastolic blood pressure 62 mm[Hg] Ruthie Clementemond Other [employer] Other 02-19-2022 12:05-0400 Respiratory rate 20 /min Ruthie Clementemond Other [employer] Other 02-19-2022 12:05-0400 SaO2% (BldA) [Mass fraction] 94 % Ruthie Clementemond Other [employer] Other 02-19-2022 12:05-0400 Systolic blood pressure 116 mm[Hg] Ruthie Megan Other [employer] Other 02-07-2022 16:00-0400 Body height 170.18 cm Balbir Mejia Other [employer] Other 02-07-2022 16:00-0400 Body mass index (BMI) [Ratio] 36.02 kg/m2 Balbir Mejia Other [employer] Other 02-07-2022 16:00-0400 Body temperature 97.3 [degF] Balbir Mejia Other [employer] Other 02-07-2022 16:00-0400 Body weight 104.33 kg Balbir Mejia Other [employer] Other 02-07-2022 16:00-0400 Diastolic blood pressure 74 mm[Hg] Balbir Ba Other [employer] Other 02-07-2022 16:00-0400 SaO2% (BldA) [Mass fraction] 98 % Balbir Mejia Other [employer] Other 02-07-2022 16:00-0400 Systolic blood pressure 136 mm[Hg] Balbir Mejia Other [employer] Other 01-11-2022 14:00-0500 Body height 170.18 cm Brittnee Scally Other [employer] Other 01-11-2022 14:00-0500 Body mass index (BMI) [Ratio] 35.5 kg/m2 Brittnee Scally Other [employer] Other 01-11-2022 14:00-0500 Body weight 102.83 kg Brittnee Scally Other [employer] Other 01-11-2022 14:00-0500 Diastolic blood pressure 62 mm[Hg] Brittnee Scally Other [employer] Other 01-11-2022 14:00-0500 Respiratory rate 20 /min Brittene Scally Other [employer] Other 01-11-2022 14:00-0500 SaO2% (BldA) [Mass fraction] 98 % Brittnee Scally Other [employer] Other 01-11-2022 14:00-0500 Systolic blood pressure 105 mm[Hg] Brittnee Scally Other [employer] Other 11-16-2021 14:00-0500 Body height 170.18 cm Brittnee Scally Other [employer] Other 11-16-2021 14:00-0500 Body mass index (BMI) [Ratio] 35.72 kg/m2 Brittnee Scally Other [employer] Other 11-16-2021 14:00-0500 Body weight 103.47 kg Brittnee Scally Other [employer] Other 11-16-2021 14:00-0500 Diastolic blood pressure 70 mm[Hg] Brittnee Scally Other [employer] Other 11-16-2021 14:00-0500 Respiratory rate 20 /min Brittnee Scally Other [employer] Other 11-16-2021 14:00-0500 SaO2% (BldA) [Mass fraction] 93 % Brittnee Scally Other [employer] Other 11-16-2021 14:00-0500 Systolic blood pressure 123 mm[Hg] Brittnee Scally Other [employer] Other 10-05-2021 14:45-0500 Body height 170.18 cm Brittnee Scally Other [employer] Other 10-05-2021 14:45-0500 Body mass index (BMI) [Ratio] 35.42 kg/m2 Brittnee Scally Other [employer] Other 10-05-2021 14:45-0500 Body weight 102.6 kg Brittnee Scally Other [email or web address] Other 10-05-2021 14:45-0500 Diastolic blood pressure 74 mm[Hg] Brittnee Scally Other [email or web address] Other 10-05-2021 14:45-0500 Respiratory rate 20 /min Brittnee Scally Other [employer] Other 10-05-2021 14:45-0500 SaO2% (BldA) [Mass fraction] 95 % Brittnee Scally Other [employer] Other 10-05-2021 14:45-0500 Systolic blood pressure 123 mm[Hg] Brittnee Scally Other [employer] Other 09-26-2021 12:00-0500 Body height 170.18 cm Vinnie Stewart Other [employer] Other 09-26-2021 12:00-0500 Body mass index (BMI) [Ratio] 35.39 kg/m2 Vinnie Stewart Other [employer] Other 09-26-2021 12:00-0500 Body temperature 98.1 [degF] Vinnie Stewart Other [employer] Other 09-26-2021 12:00-0500 Body weight 102.51 kg Vinnie Stewart Other [employer] Other 09-26-2021 12:00-0500 Diastolic blood pressure 72 mm[Hg] Vinnie Stewart Other [employer] Other 09-26-2021 12:00-0500 Respiratory rate 20 /min Vinnie Stewart Other [employer] Other 09-26-2021 12:00-0500 SaO2% (BldA) [Mass fraction] 95 % Vinnie Lucasley Other [email or web address] Other 09-26-2021 12:00-0500 Systolic blood pressure 118 mm[Hg] Vinnie Stewart Other [email or web address] Other 12-18-2019 10:11-0500 BMI (Body Mass Index) 35.2 kg/m2 Vinnie [facility] 12-18-2019 10:11-0500 Body weight 108.4 kg Vinnie [facility] 12-18-2019 10:11-0500 Height 175.26 cm Vinnie [facility] 12-18-2019 10:01-0500 Body Temperature 97.8 [degF] Vinnie Stewart [facility] 12-18-2019 10:01-0500 BP Diastolic 80 mm[Hg] Vinnie [facility] 12-18-2019 10:01-0500 BP Systolic 126 mm[Hg] [facility] 12-18-2019 10:01-0500 Pulse (Heart Rate) 108 /min Vinnie Stewart [facility] 12-18-2019 10:01-0500 Respiratory Rate 16 /min Vinnie Stewart [facility] Encounters Encounter Date Encounter Type Care Provider Facility Start: 02-05-2024 Non-patient / Non-visit DO Vinnie Stewart Work Phone: [facility] Work Phone: Start: 01-30-2024 Non-patient / Non-visit DO Vinnie Stewart Work Phone: [facility]ious Disease Work Phone: Start: 01-30-2024 Non-patient / Non-visit DO Vinnie Stewart Work Phone: [facility] V[facility] Surgery Work Phone: Start: 01-29-2024 Non-patient / Non-visit DO Vinnie Stewart Work Phone: [facility] Pul[facility] Disease Work Phone: Start: 01-29-2024 Non-patient / Non-visit DO Vinnie Stewart Work Phone: [facility] Work Phone: Start: 01-28-2024 End: 02-05-2024 Evaluation and management of inpatient Farhan Stuart Facility:[facility] Start: 01-28-2024 Non-patient / Non-visit DO Vinnie Stewart Work Phone: [facility] Physician [facility] Work Phone: Start: 01-28-2024 End: 02-05-2024 Evaluation and management of inpatient DO Vinnie Stewart Work Phone: [facility] [place] [facility] Work Phone: Start: 01-25-2024 End: 01-25-2024 ambulatory BRYCE WATSON [facility] Start: 01-17-2024 End: 01-17-2024 ambulatory Jorge Arroyo Facility:[facility] Start: 01-17-2024 End: 01-17-2024 Departed Referred DO Vinnie Stewart Work Phone: [facility] Start: 12-27-2023 End: 12-27-2023 ambulatory Vinnie Stewart Other [email or web address] Other Start: 12-27-2023 Telephone encounter Vinnie Palomino [facility] Start: 12-20-2023 End: 12-20-2023 ambulatory Vinnie Stewart Other [email or web address] Other Start: 12-20-2023 [facility] Start: 12-18-2023 End: 12-19-2023 ambulatory VINNIE STEWART [facility] Start: 12-17-2023 End: 12-17-2023 ambulatory Vinnie Stewart Other [email or web address] Other Start: 12-17-2023 Telephone encounter Vinnie Palomino [facility] Start: 12-11-2023 Non-patient / Non-visit DO Vinnie Stewart Work Phone: [facility] [employer] Work Phone: Start: 12-10-2023 End: 12-11-2023 ambulatory iVnnie Stewart Facility:[facility] Start: 12-10-2023 End: 12-10-2023 Discharged Recurring DO Vinnie Stewart Work Phone: [facility] Work Phone: Start: 12-10-2023 End: 12-10-2023 ambulatory DO Vinnie Stewart Work Phone: [employer] Other Start: 12-10-2023 Nursing evaluation o f patient and report Brittnee Spain [facility] Start: 11-26-2023 End: 11-26-2023 ambulatory BRYCE SHIRLEY [facility] Start: 11-22-2023 End: 11-22-2023 ambulatory Vinnie Stewart Other [email or web address] Other Start: 11-22-2023 Office outpatient visit 15 minutes Vinnie FRANCISCO [facility] Start: 11-22-2023 Telephone encounter Vinnie Palomino [facility] Start: 11-22-2023 End: 11-22-2023 Patient encounter procedure DO Vinnie Stewart Work Phone: [facility] [place] Work Phone: Start: 11-21-2023 End: 11-21-2023 ambulatory Vinnie Stewart Other [email or web address] Other Start: 11-21-2023 Telephone encounter Vinnie Palomino [facility] Start: 11-15-2023 End: 11-15-2023 ambulatory Simba Jac Other [email or web address] Other Start: 11-15-2023 Office outpatient visit 25 minutes Simba Jac [facility] Start: 11-15-2023 End: 11-15-2023 Patient encounter procedure DO Vinnie Stewart Work Phone: [facility] Neph[facility] [place] Work Phone: Start: 11-13-2023 (DM) [facility] Start: 11-13-2023 End: 11-13-2023 ambulatory Brittnee Spain Other [email or web address] Other Start: 11-13-2023 Telephone encounter Brittnee harrington [facility] Start: 11-13-2023 End: 11-13-2023 Patient encounter procedure DO Vinnie Stewart Work Phone: [facility] Work Phone: Start: 11-06-2023 End: 11-06-2023 ambulatory Vinnie Stewart Other [email or web address] Other Start: 11-06-2023 Telephone encounter Vinnie Palomnio [facility] Start: 11-01-2023 End: 11-01-2023 ambulatory Brittnee Spain Other [email or web address] Other Start: 11-01-2023 Telephone encounter Brittnee Matt [facility] Start: 10-25-2023 End: 10-25-2023 ambulatory Vinnie Stewart Other [email or web address] Other Start: 10-25-2023 Telephone encounter Vinnie Palomino [facility] Start: 10-22-2023 End: 10-22-2023 ambulatory Brittnee Spain Other [email or web address] Other Start: 10-22-2023 Telephone encounter Brittnee Matt [facility] Start: 10-19-2023 End: 10-19-2023 ambulatory Vinnie Stewart Other [email or web address] Other Start: 10-19-2023 Telephone encounter Vinnie Palomino [facility] [place] Start: 10-08-2023 End: 10-08-2023 ambulatory Brittnee Spain Other [email or web address] Other Start: 10-08-2023 Nursing evaluation o f patient and report Brittnee Spain [facility] Start: 10-08-2023 End: 10-08-2023 Patient encounter procedure DO Vinnie Stewart Work Phone: [facility] Work Phone: Start: 10-04-2023 (Acute) Acute Visit Brittnee merr[facility]s [facility] Start: 10-04-2023 End: 10-04-2023 ambulatory Brittnee Spain Other [email or web address] Other Start: 10-03-2023 End: 10-03-2023 ambulatory Brittnee Spain Other [email or web address] Other Start: 10-03-2023 Telephone encounter Brittnee [facility]rington [facility] Start: 09-21-2023 End: 09-21-2023 ambulatory [facility] Start: 09-20-2023 End: 09-20-2023 ambulatory Vinnie Stewart Other [email or web address] Other Start: 09-20-2023 Telephone encounter Vinnie [facility]omino [facility] Start: 09-18-2023 (DM) Diabetes Brittnee Omalleynitza [facility] Start: 09-18-2023 End: 09-18-2023 ambulatory Vinnie Stewart Other [email or web address] Other Start: 09-18-2023 Telephone encounter Vinnie Palomino [facility] Start: 09-17-2023 End: 09-17-2023 ambulatory Vinnie Stewart Other [email or web address] Other Start: 09-17-2023 Telephone encounter Vinnie Palomino [facility] Start: 08-31-2023 End: 08-31-2023 ambulatory Brittnee Spain Other [email or web address] Other Start: 08-31-2023 Telephone encounter Brittnee harrington [facility] Start: 08-30-2023 End: 08-30-2023 ambulatory UNKNOWN PROVIDER [email or web address] Other Start: 08-30-2023 Telephone encounter Vinnie Palomino [facility] Start: 08-23-2023 End: 08-23-2023 ambulatory MASSIMO PECKER [facility] [employer] Other Start: 08-23-2023 Telephone encounter Vinnie ROSALES [facility] Start: 08-20-2023 End: 08-20-2023 ambulatory Vinnie Stewart Other [email or web address] Other Start: 08-20-2023 Telephone encounter Vinnie ROSALES [facility] Start: 08-15-2023 Telephone encounter Vinnie ROSALES [facility] Start: 08-15-2023 End: 08-15-2023 ambulatory BRYCE WATSON [facility] [employer] Other Start: 08-03-2023 End: 08-03-2023 ambulatory Vinnie Stewart Other [email or web address] Other Start: 08-03-2023 Telephone encounter Vinnie ROSALES [facility] Start: 07-30-2023 End: 07-30-2023 ambulatory Vinnie Stewart Other [email or web address] Other Start: 07-30-2023 Telephone encounter Vinnie ROSALES [facility] Start: 07-27-2023 End: 07-27-2023 ambulatory Vinnie Stewart Other [email or web address] Other Start: 07-27-2023 Telephone encounter Vinnie ROSALES [facility] Start: 07-24-2023 End: 07-24-2023 ambulatory [place] Start: 07-20-2023 End: 07-20-2023 ambulatory Vinnie Stewart Other [email or web address] Other Start: 07-20-2023 Telephone encounter Vinnie ROSALES [facility] Start: 07-19-2023 End: 07-19-2023 ambulatory Vinnie Stewart Other [email or web address] Other Start: 07-19-2023 Telephone encounter Vinnie Palomino [facility] Start: 07-16-2023 End: 07-16-2023 ambulatory Vinnie Stewart Other [email or web address] Other Start: 07-16-2023 Telephone encounter Vinnie Palomino [facility] Start: 07-12-2023 End: 07-12-2023 ambulatory Vinnie Stewart Other [email or web address] Other Start: 07-12-2023 Telephone encounter Vinnie Palomino [facility] Start: 06-29-2023 (DM) Diabetes Brittnee Judit [facility] Start: 06-29-2023 End: 06-29-2023 ambulatory Vinnie Stewart Other [email or web address] Other Start: 06-29-2023 Office outpatient visit 15 minutes Vinnie Stewart [facility] Start: 06-18-2023 End: 06-18-2023 ambulatory Vinnie Stewart Other [email or web address] Other Start: 06-18-2023 Office outpatient visit 15 minutes Vinnie Stewart [facility] Start: 06-15-2023 End: 06-15-2023 ambulatory Vinnie Stewart Other [email or web address] Other Start: 06-15-2023 Telephone encounter Vinnie Palomino [facility] Start: 06-05-2023 End: 06-06-2023 ambulatory [facility] Start: 05-31-2023 End: 05-31-2023 ambulatory Vinnie Stewart Other [email or web address] Other Start: 05-31-2023 Telephone encounter Vinnie Palomino [facility] Start: 05-18-2023 End: 05-18-2023 ambulatory Vinnie Stewart Other [email or web address] Other Start: 05-18-2023 Telephone encounter Vinnie [facility]omino [facility] Start: 05-08-2023 End: 05-08-2023 ambulatory Nicolette Manzano Other [email or web address] Other Start: 05-08-2023 Telephone encounter Nicolette Manzano [facility] Start: 05-02-2023 End: 05-02-2023 ambulatory Brittnee Spain Other [email or web address] Other Start: 05-02-2023 Nursing evaluation o f patient and report Brittnee Spain [facility] Start: 04-20-2023 End: 04-20-2023 ambulatory Vinnie Stewart Other [email or web address] Other Start: 04-20-2023 Telephone encounter Vinnie Palomino [facility] Start: 04-19-2023 End: 04-19-2023 ambulatory Simba Jac Other [email or web address] Other Start: 04-19-2023 Office outpatient visit 15 minutes Gisselle Dickey [facility] Start: 04-19-2023 Office outpatient visit 25 minutes Simba Jac [facility] Start: 04-18-2023 End: 04-18-2023 ambulatory Vinnie Stewart Other [email or web address] Other Start: 04-18-2023 Telephone encounter Vinnie Palomino [facility] Start: 04-17-2023 Telephone encounter Vinnie Palomino [facility] Start: 04-17-2023 End: 04-17-2023 [facility] Start: 04-13-2023 End: 04-13-2023 ambulatory Simba Jac Other [facility] [employer] Other Start: 04-13-2023 Telephone encounter Simba Jac [facility] Start: 04-11-2023 End: 04-12-2023 ambulatory SIMBA JAC Facility:[facility] Start: 04-02-2023 End: 04-03-2023 ambulatory JORGE ARROYO [facility] [employer] Other Start: 04-02-2023 Telephone encounter Vinnie Palomino [facility] Start: 03-27-2023 End: 03-28-[address] DEEPAK FOURNIER . [facility] [employer] Other Start: 03-27-2023 Telephone encounter Brittnee [facility] Start: 03-21-2023 End: 03-21-2023 ambulatory DAHIANA BELCHER [facility] [employer] Other Start: 03-21-2023 Office outpatient visit 15 minutes Vinnie FRANCISCO [facility] Start: 03-19-2023 Telephone encounter Vinnie Palomino [facility] Start: 03-19-2023 End: 04-18-2023 ambulatory BROWN Jorge L GIGI [facility] [employer] Other Start: 02-27-2023 End: 02-27-2023 ambulatory Vinnie Stewart Other [facility] [employer] Other Start: 02-27-2023 Telephone encounter Vinnie Palomino [facility] Start: 02-21-2023 End: 02-21-2023 ambulatory Yakov To Facility:[facility] Start: 02-21-2023 Office outpatient visit 15 minutes Vinnie FRANCISCO [facility] Start: 02-21-2023 End: 02-21-2023 ambulatory DO Vinnie Stewart Work Phone: [facility] Work Phone: Start: 02-21-2023 End: 02-21-2023 Patient encounter procedure DO Vinnie Stewart Work Phone: [facility] [place] Work Phone: Start: 02-20-2023 End: 02-20-2023 ambulatory Vinnie Stewart Other [email or web address] Other Start: 02-20-2023 Telephone encounter Vinnie Palomino [facility] Start: 02-19-2023 End: 03-16-2023 ambulatory SHAIKH Jorge L KALPANAEliciaANKUSH Facility: Start: 02-13-2023 End: 02-14-2023 Evaluation and management of inpatient Yakov Allen To Facility:[facility] Start: 02-13-2023 End: 02-14-2023 Evaluation and management of inpatient DO Vinnie Stewart Work Phone: [facility] [place] [facility] Work Phone: Start: 02-13-2023 Registered Recurring DO Vinnie Stewart Work Phone: [facility] Work Phone: Start: 02-13-2023 End: 02-13-2023 ambulatory Vinnie Stewart Other [email or web address] Other Start: 02-13-2023 Telephone encounter Vinnie Palomino [facility] Start: 02-09-2023 End: 02-09-2023 ambulatory Vinnie Stewart Other [email or web address] Other Start: 02-09-2023 Office outpatient visit 15 minutes Vinnie FRANCISCO [facility] Start: 02-05-2023 End: 02-05-2023 ambulatory Vinnie Stewart Other [email or web address] Other Start: 02-05-2023 Telephone encounter Vinnie Palomino [facility] Start: 01-30-2023 End: 01-30-2023 ambulatory Vinnie Stewart Other [email or web address] Other Start: 01-30-2023 Telephone encounter Vinnie Palomino [facility] Start: 01-29-2023 End: 01-30-2023 ambulatory SUSHIL LILLYINDIO Facility:[facility] Start: 01-29-2023 End: 01-29-2023 ambulatory [facility] Start: 01-17-2023 Office outpatient visit 15 minutes Vinnie FRANCISCO [facility] Start: 01-17-2023 End: 02-16-2023 ambulatory SHAIKH Jorge L YU [email or web address] Other Start: 01-16-2023 End: 01-16-2023 ambulatory Vinnie Stewart Other [email or web address] Other Start: 01-16-2023 Telephone encounter Vinnie [facility]omino [facility] Start: 01-05-2023 End: 01-11-2023 Evaluation and management of inpatient NIK BUNN . Facility:[facility] Start: 01-02-2023 End: 01-02-2023 ambulatory CANDELARIA EMA Olson Facility:[facility] Start: 01-02-2023 End: 01-03-2023 ambulatory KODI MYERS Facility:[facility] Start: 12-26-2022 End: 12-27-2022 ambulatory KODI MYERS Facility:[facility] Start: 12-22-2022 End: 12-22-2022 ambulatory Vinnie Stewart Other [email or web address] Other Start: 12-22-2022 Telephone encounter Vinnie [facility]om[facility] Start: 12-20-2022 End: 01-17-2023 ambulatory SHAIKH Jorge L YU Facility:[facility] Start: 12-19-2022 End: 12-19-2022 ambulatory Vinnie Stewart Other [email or web address] Other Start: 12-19-2022 Telephone encounter Vinnie Palomino [facility] Start: 12-14-2022 End: 12-14-2022 ambulatory Vinnie Stewart Other [email or web address] Other Start: 12-14-2022 Telephone encounter Vinnie Palomino [facility] Start: 12-12-2022 End: 12-12-2022 ambulatory Brittnee Spain Other [email or web address] Other Start: 12-12-2022 Nursing evaluation o f patient and report Brittnee Spain [facility] Start: 12-11-2022 End: 12-11-2022 ambulatory Vinnie Stewart Other [email or web address] Other Start: 12-11-2022 Telephone encounter Vinnie Palomino [facility] Start: 12-04-2022 End: 12-04-2022 ambulatory DO Vinnie Stewart Work Phone: [facility] Work Phone: Start: 12-04-2022 End: 12-04-2022 Registered Recurring DO Vinnie Stewart Work Phone: [facility] Work Phone: Start: 11-29-2022 End: 11-29-2022 ambulatory Vinnie Stewart Other [email or web address] Other Start: 11-29-2022 Telephone encounter Vinnie Palomino [facility] Start: 11-27-2022 End: 11-27-2022 ambulatory Vinnie Stewart Other [email or web address] Other Start: 11-27-2022 Telephone encounter Vinnie Palomino [facility] Start: 11-20-2022 End: 12-20-2022 ambulatory SHAIKH Jorge L YU Facility: Start: 11-14-2022 End: 11-15-[address] YEN [facility] [email or web address] Other Start: 11-14-2022 Telephone encounter Vinnie Palomino [facility] Start: 11-07-2022 (DM) [facility] Start: 11-07-2022 End: 11-07-2022 ambulatory Brittnee Spain Other [email or web address] Other Start: 11-07-2022 Registered Recurring DO Vinnie Stewart Work Phone: [facility] Work Phone: Start: 11-01-2022 End: 11-01-2022 ambulatory Brittnee Spain Other [email or web address] Other Start: 11-01-2022 Telephone encounter Brittnee Remalouisa Matt [facility] Start: 10-31-2022 End: 10-31-2022 ambulatory Vinnie Stewart Other [email or web address] Other Start: 10-31-2022 Telephone encounter Vinnie Palomino [facility] Start: 10-27-2022 Telephone encounter Gisselle Dickey [facility] Start: 10-27-2022 End: 10-28-2022 ambulatory BRYCE WATSON [email or web address] Other Start: 10-19-2022 End: 11-19-2022 ambulatory SHAIKH Jorge L YU Facility: Start: 10-11-2022 End: 10-11-2022 ambulatory Brittnee Spain Other [email or web address] Other Start: 10-11-2022 Telephone encounter Brittnee Remalouisa Matt [facility] Start: 10-09-2022 End: 10-09-2022 ambulatory Vinnie Stewart Other [email or web address] Other Start: 10-09-2022 Telephone encounter Vinnie Palomino [facility] Start: 10-05-2022 End: 10-05-2022 ambulatory Vinnie Stewart Other [email or web address] Other Start: 10-05-2022 Telephone encounter Vinnie Palomino [facility] Start: 10-03-2022 End: 10-03-[address] BIANCA STUART Facility:[facility] Start: 09-28-2022 End: 09-28-2022 ambulatory Simba Jac Other [email or web address] Other Start: 09-28-2022 Office outpatient visit 15 minutes Gisselle Noble [facility] Start: 09-28-2022 Office outpatient visit 25 minutes Simba Jac [facility] Start: 09-27-2022 End: 09-27-2022 ambulatory Vinnie Stewart Other [email or web address] Other Start: 09-27-2022 Telephone encounter Vinnie Palomino [facility] Start: 09-19-2022 End: 10-18-2022 ambulatory SHAIKH Jorge L YU Facility:[facility] Start: 09-18-2022 Telephone encounter Brittnee Matt [facility] Start: 09-18-2022 End: 09-19-2022 ambulatory SIMBA JAC [email or web address] Other Start: 09-13-2022 End: 09-13-2022 ambulatory Vinnie Stewart Other [email or web address] Other Start: 09-13-2022 Office outpatient visit 15 minutes Vinnie FRANCISCO [facility] Start: 09-08-2022 End: 09-08-2022 ambulatory Vinnie Stewart Other [email or web address] Other Start: 09-08-2022 Telephone encounter Vinnie Palomino [facility] Start: 08-31-2022 End: 08-31-2022 ambulatory Brittnee Spain Other [email or web address] Other Start: 08-31-2022 Telephone encounter Brittnee merritts [facility] Start: 08-21-2022 End: 08-21-2022 ambulatory Vinnie Stewart Other [email or web address] Other Start: 08-21-2022 Telephone encounter Vinnie [facility]om[facility] Start: 08-20-2022 End: 09-18-2022 ambulatory BROWN Jorge L VEGAWAD Facility:[facility] Start: 08-02-2022 End: 08-02-2022 ambulatory Vinnie Stewart Other [email or web address] Other Start: 08-02-2022 Telephone encounter Vinnie [facility]om[facility] Start: 07-31-2022 (DM) Diabetes Brittnee Omalleynitza [facility] Start: 07-31-2022 End: 07-31-2022 ambulatory Brittnee Spain Other [email or web address] Other Start: 07-20-2022 End: 08-19-2022 ambulatory SHAIKH Jorge L YU Facility:[facility] Start: 07-19-2022 End: 07-20-2022 ambulatory MASSIMO SWAN Facility:[facility] Start: 07-18-2022 End: 07-18-2022 ambulatory Brittnee Spain Other [email or web address] Other Start: 07-18-2022 Telephone encounter Brittnee harrington [facility] Start: 07-11-2022 End: 07-11-2022 ambulatory Vinnie Stewart Other [email or web address] Other Start: 07-11-2022 Telephone encounter Vinnie Palomino [facility] Start: 06-27-2022 End: 06-27-2022 ambulatory Vinnie Stewart Other [email or web address] Other Start: 06-27-2022 Telephone encounter Vinnie Palom[facility] Start: 06-23-2022 End: 06-24-2022 ambulatory PETER D HIGHLANDER Facility:[facility] Start: 06-20-2022 End: 06-20-2022 ambulatory Vinnie Stewart Other [email or web address] Other Start: 06-20-2022 Office outpatient visit 15 minutes Vinnie [facility]ANCISCO [facility] Start: 06-19-2022 Telephone encounter Brittnee harrington [facility] Start: 06-19-2022 End: 07-19-2022 ambulatory SHAIKH Jorge L FALAISHAD [employer] [facility] Other Start: 06-13-2022 End: 06-16-2022 Evaluation and management of inpatient SHAIKH Jorge L LIMD Facility:[facility] Start: 06-06-2022 End: 06-06-2022 ambulatory Vinnie Stewart Other [email or web address] Other Start: 06-06-2022 Telephone encounter Vinnie [facility]om[facility] Start: 06-01-2022 End: 06-02-2022 ambulatory JORGE ARROYO Facility:[facility] Start: 05-30-2022 End: 05-30-2022 ambulatory Vinnie Stewart Other [email or web address] Other Start: 05-30-2022 Telephone encounter Vinnie [facility]om[facility] Start: 05-25-2022 End: 05-26-2022 ambulatory PETER D HIGHLANDER Facility:[facility] Start: 05-19-2022 End: 06-16-2022 ambulatory SHAIKH Jorge L LIMD Facility:[facility] Start: 05-18-2022 End: 05-19-2022 ambulatory PETER D HIGHLANDER Facility:[facility] Start: 05-17-2022 End: 05-17-2022 ambulatory Brittnee Judit Other [email or web address] Other Start: 05-17-2022 Telephone encounter Brittnee harrington [facility] Start: 05-16-2022 End: 05-16-2022 ambulatory Vinnie Stewart Other [email or web address] Other Start: 05-16-2022 Telephone encounter Vinnie [facility] Start: 05-08-2022 End: 05-10-2022 ambulatory VINNIE STEWART Facility:[facility] Start: 05-04-2022 End: 05-04-2022 ambulatory Vinnie Stewart Other [email or web address] Other Start: 05-04-2022 Telephone encounter Vinnie [facility] Start: 04-28-2022 End: 05-02-2022 Evaluation and management of inpatient SHAIKH Jorge L YU Facility:[facility] Start: 04-26-2022 End: 04-26-2022 ambulatory Brittnee Judit Other [email or web address] Other Start: 04-26-2022 Telephone encounter Brittnee [facility] Start: 04-25-2022 End: 04-25-2022 ambulatory Vinnie Stewart Other [email or web address] Other Start: 04-25-2022 Telephone encounter Vinnie [facility] Start: 04-24-2022 End: 04-24-2022 ambulatory Vinnie Stewart Other [email or web address] Other Start: 04-24-2022 Telephone encounter Vinnie [facility] Start: 04-10-2022 End: 04-10-2022 ambulatory Brittnee Judit Other [email or web address] Other Start: 04-10-2022 Telephone encounter Brittnee [facility] Start: 03-21-2022 End: 03-21-2022 ambulatory Vinnie Stewart Other [email or web address] Other Start: 03-21-2022 Telephone encounter Vinnie Stewart [facility] Start: 03-17-2022 End: 03-17-2022 ambulatory Vinnie Stewart Other [email or web address] Other Start: 03-17-2022 Telephone encounter Vinnie ROSALES [facility] Start: 03-03-2022 End: 03-03-2022 ambulatory Vinnie Stewart Other [email or web address] Other Start: 03-03-2022 Telephone encounter Vinnie ROSALES [facility] Start: 03-02-2022 End: 03-02-2022 ambulatory Vinnie Stewart Other [email or web address] Other Start: 03-02-2022 Office outpatient visit 15 minutes Vinnie Stewart [facility] Start: 02-20-2022 End: 02-20-2022 ambulatory Vinnie Stewart Other [email or web address] Other Start: 02-20-2022 Telephone encounter Vinnie [facility] Start: 02-19-2022 End: 02-19-2022 ambulatory Ruthie Megan Other [email or web address] Other Start: 02-19-2022 Office outpatient visit 15 minutes Ruthie Megan [facility] Start: 02-19-2022 Telephone encounter Vinnie ROSALES [facility] Start: 02-10-2022 End: 02-10-2022 ambulatory Vinnie Stewart Other [email or web address] Other Start: 02-10-2022 Telephone encounter Vinnie ROSALES [facility] Start: 02-07-2022 End: 02-07-2022 ambulatory Balbir Ba Other [email or web address] Other Start: 02-07-2022 Office outpatient visit 25 minutes Balbir Ba [facility] Start: 02-06-2022 End: 02-06-2022 ambulatory Vinnie Stewart Other [email or web address] Other Start: 02-06-2022 Telephone encounter Vinnie [facility] Start: 01-27-2022 End: 01-27-2022 ambulatory Vinnie Stewart Other [email or web address] Other Start: 01-27-2022 Telephone encounter Vinnie [facility] Start: 01-26-2022 End: 01-26-2022 ambulatory Vinnie Stewart Other [email or web address] Other Start: 01-26-2022 Telephone encounter Vinnie [facility] Start: 01-11-2022 (DM) Diabetes Brittnee Spain [facility] Start: 01-11-2022 End: 01-11-2022 ambulatory Brittnee Spain Other [email or web address] Other Start: 01-10-2022 End: 01-10-2022 ambulatory Vinnie Stewart Other [email or web address] Other Start: 01-10-2022 Telephone encounter Vinnie [facility] Start: 01-05-2022 End: 01-05-2022 ambulatory Brittnee Spain Other [email or web address] Other Start: 01-05-2022 Telephone encounter Brittnee Spain [facility] Start: 12-26-2021 End: 12-26-2021 ambulatory Vinnie Stewart Other [email or web address] Other Start: 12-26-2021 Telephone encounter Vinnie [facility] Start: 12-20-2021 End: 12-20-2021 ambulatory Brittnee Spain Other [email or web address] Other Start: 12-20-2021 Telephone encounter Brittnee [facility] Start: 12-09-2021 End: 12-09-2021 ambulatory Vinnie Stewart Other [email or web address] Other Start: 12-09-2021 Telephone encounter Vinnie [facility] Start: 11-30-2021 End: 11-30-2021 ambulatory Vinnie Stewart Other [email or web address] Other Start: 11-30-2021 Telephone encounter Vinnie [facility] Start: 11-29-2021 End: 11-29-2021 ambulatory Brittnee Spain Other [email or web address] Other Start: 11-29-2021 Telephone encounter Brittnee [facility] Start: 11-28-2021 End: 11-28-2021 ambulatory Brittnee Spain Other [email or web address] Other Start: 11-28-2021 Telephone encounter Vinnie [facility] Start: 11-21-2021 End: 11-21-2021 ambulatory Brittnee Spain Other [email or web address] Other Start: 11-21-2021 Telephone encounter Brittnee [facility] Start: 11-17-2021 End: 11-17-2021 ambulatory Vinnie Stewart Other [email or web address] Other Start: 11-17-2021 Telephone encounter Vinnie [facility] Start: 11-16-2021 (DM) Diabetes Brittnee Remalouisa [facility] Start: 11-16-2021 End: 11-16-2021 ambulatory Brittnee Spain Other [email or web address] Other Start: 10-11-2021 End: 10-11-2021 ambulatory Vinnie Stewart Other [email or web address] Other Start: 10-11-2021 Telephone encounter Vinnie [facility]on [facility] Start: 10-10-2021 End: 10-10-2021 ambulatory Vinnie Stewart Other [email or web address] Other Start: 10-10-2021 Telephone encounter Vinnie ROSALES [facility] Start: 10-05-2021 (DM) Diabetes Brittnee Segovia [facility] Start: 10-05-2021 End: 10-05-2021 ambulatory Brittnee Spain Other [email or web address] Other Start: 09-26-2021 End: 09-26-2021 ambulatory Vinnie Stewart Other [email or web address] Other Start: 09-26-2021 Office outpatient visit 15 minutes Vinnie [facility] Start: 09-16-2021 End: 09-16-2021 ambulatory Brittnee Remalouisa Other [email or web address] Other Start: 09-16-2021 Telephone encounter Brittnee [facility] Start: 04-12-2021 End: 04-17-2021 Evaluation and management of inpatient PA Facility:[facility] Start: 12-16-2020 End: 12-16-2020 Patient encounter procedure Vinnie Stewart -Sleep Lab Start: 12-06-2020 Registered Recurring Vinnie Stewart - [facility] [place] Start: 12-18-2019 End: 12-18-2019 Discharged Recurring Vinnie Stewart [facility] [place] [facility] Start: 09-23-2019 End: 09-23-2019 Patient encounter [...] Date Care Activity Detail Author Start: 02-05-2024 [facility] Start: 02-04-2024 Physical therapy procedure [facility] Start: 01-30-2024 Referral to vascular surgeon [facility] Start: 01-29-2024 Referral to vascular surgeon [facility] Start: 01-29-2024 Referral to pie crust mixer [facility] Start: 01-28-2024 Referral to infectio us diseases physician [facility] Start: 01-28-2024 Hospital admission [facility] Start: 01-28-2024 Referral to tinning equipment tender [facility] Start: 02-23-2023 [facility] Start: 02-22-2023 [facility] Start: 02-21-2023 [facility] Start: 02-20-2023 [facility] Start: 02-19-2023 [facility] Start: 02-18-2023 Blood chemistry [facility] Start: 02-18-2023 [facility] Start: 02-17-2023 Blood chemistry [facility] Start: 02-17-2023 [facility] Start: 02-16-2023 Blood chemistry [facility] Start: 02-16-2023 [facility] Start: 02-15-2023 Blood chemistry [facility] Start: 02-15-2023 [facility] Start: 02-14-2023 Blood chemistry [facility] Start: 02-14-2023 End: 02-14-2023 [facility] Start: 02-14-2023 [facility] Start: 02-13-2023 Hospital admission [facility] Start: 02-13-2023 Physical therapy procedure [facility] Start: 02-13-2023 Referral to occupati onal therapist [facility] Start: 02-13-2023 [facility] Patient Education [facility] Work Phone: Patient referral [facility] Work Phone: [facility] Immunizations Immunization Date Immunization Notes Care Provider Fa cili 08-23-2021 COVID-19 Vaccine Pfizer - Documentation Purposes Only Vinnie Stewart Other [facility] 08-10-2021 influenza, seasonal, injectable Vinnie Stewart Other [facility] 01-14-2021 COVID-19 Vaccine Pfizer - Documentation Purposes Only Vinnie Stewart Other [facility] 01-04-2021 COVID-19 Vaccine Moderna - Documentation Purposes Only Vinnie Stewart Other [facility] 12-24-2020 COVID-19 Vaccine Pfizer - Documentation Purposes Only Vinnie Stewart Other [facility] 10-19-2020 pneumococcal conjugate vaccine, 13 valent Vinnie Stewart Other [facility] 08-16-2018 zoster vaccine recombinant Vinnie Stewart Other [facility] 08-23-2016 pneumococcal polysaccharide vaccine, 23 valent Vinnie Stewart Other [facility] 08-21-2016 influenza, injectable, quadrivalent, preservative free DO Vinnie Stewart Work Phone: [facility] 08-21-2016 influenza, injectable, quadrivalent, contains preservative Vinnie Stewart Other [email or web address] Other NEGATED: Highlighted row has not occurred! 5 influenza, injectable, quadrivalent, contains preservative Patient Objection Vinnie Stewart Other [email or web address] Other Payers Date Payer Category Payer Medicare [id number] 54a [id number] 2019 Self-pay [id number] 1959 Medicaid [id number] 1959 Unknown [id number] 1954 Unknown [id number] 2.16.8 40.1.776186.3.579.2.647 1954 Unknown [id number] 2.16.84 0.1.788530.3.579.2.593 1954 Unknown [id number] 2.16.84 0.1.158881.3.579.2.593 1954 Unknown [id number] 2.16.84 0.1.968855.3.579.2.593 1954 Unknown [id number] 2.16.84 0.1.318317.3.579.2.593 1954 Unknown [id number] 2.16.84 0.1.174627.3.579.2.593 1954 Unknown [id number] 2.16.84 0.1.598653.3.579.2.593 1954 Unknown [id number] 2.16.84 0.1.979152.3.579.2.593 1954 Unknown [id number] 2.16.84 0.1.215916.3.579.2.593 1954 Unknown [id number] 2.16.84 0.1.316988.3.579.2.593 1954 Unknown [id number] 2.16.84 0.1.734371.3.579.2.593 1954 Unknown [id number] 2.16.84 0.1.783951.3.579.2.593 1954 Unknown [id number] 2.16.84 0.1.170570.3.579.2.593 1954 Unknown [id number] 2.16.84 0.1.264837.3.579.2.593 1954 Unknown [id number] 2.16.84 0.1.646572.3.579.2.593 1954 Unknown [id number] 2.16.84 0.1.406844.3.579.2.593 1954 Unknown [id number] 2.16.84 0.1.473238.3.579.2.593 1954 Unknown [id number] 2.16.84 0.1.736391.3.579.2.593 1954 Unknown [id number] 2.16.84 0.1.142375.3.579.2.593 1954 Unknown [id number] 2.16.84 0.1.728774.3.579.2.593 1954 Unknown [id number] 2.16.84 0.1.504091.3.579.2.593 1954 Unknown [id number] 2.16.84 0.1.318030.3.579.2.593 1954 Unknown [id number] 2.16.84 0.1.990295.3.579.2.593 1954 Unknown [id number] 2.16.84 0.1.361812.3.579.2.593 1954 Unknown [id number] 2.16.84 0.1.607531.3.579.2.593 1954 Unknown [id number] 2.16.84 0.1.406222.3.579.2.593 1954 Unknown [id number] 2.16.84 0.1.222638.3.579.2.593 1954 Unknown [id number] 2.16.84 0.1.773836.3.579.2.593 1954 Unknown [id number] 2.16.84 0.1.072056.3.579.2.593 1954 Unknown [id number] 2.16.84 0.1.610820.3.579.2.593 1954 Unknown [id number] 2.16.84 0.1.738022.3.579.2.593 1954 Unknown [id number] 2.16.84 0.1.543103.3.579.2.593 1954 Unknown [id number] 2.16.84 0.1.705824.3.579.2.593 1954 Unknown [id number] 2.16.84 0.1.790731.3.579.2.593 1954 Unknown [id number] 2.16. 840.1.239022.3.579.2.732 1954 Unknown [id number] 2.16.8 40.1.531157.3.579.2.1286 Unknown [id number] Unknown [id number] 2.16.8 40.1.834988.3.579.2.531 Unknown [id number] 2.16.8 40.1.603367.3.579.2.531 Unknown [id number] 2.16.8 40.1.063983.3.579.2.531 Unknown [id number] 2.16.8 40.1.180789.3.579.2.531 Unknown [id number] 2.16.8 40.1.215225.3.579.2.531 Social History Date Type Detail Facility Start: 12-18-2019 End: 01-30-2024 Tobacco smoking status NHIS Ex-smoker (finding) [facility] Start: 1955 Sex Assigned At Male F [facility] Sex Assigned At Sex Assigned At Bir th [email or web address] Other Medical Equipment Procedure Code Equipment Code Equipment Origin al Text Equipment Identifier Dates Insertion, catheter, dialysis, tunneled, with imaging guidance Double-lumen haemodialysis catheter, implantable [id number] [facility] Start: 01-31-2024 [place] 32G X 4 MM Start: 03-21-2022 Goals Date Patient Goal Desired Activity /State Functional Status Date Assessment Result Facility 02-05-2024 Functional status Patient at Baseline [facility] Work Phone: 02-14-2023 Functional status Patient at Baseline [facility] Work Phone: Mental Status Date Assessment Result Facility 02-05-2024 Cognitive function Cognitive Sta tus Patient at Baseline [facility] Work Phone: 02-14-2023 Cognitive function Cognitive Sta tus Patient at Baseline [facility] Work Phone: Clinical Notes 04-18-2021 to 02-05-2024 Note Date & Type Note Facility 02-05-2024 Progress note Note Date/Time February 04, 2024 7:59pm [facility] [address] [place], [place] [id number] Hospitalist Progress Note Signed Patient: Adwoa Porter MR#: [id number] : 1955 Acct:[id number] Age/Sex: 68 / M Adm Date: 4 Loc: Room: [address] [place] [address] Type: ADM IN Attending Dr: Swathi Burnham [...] Syringe IV-PUSH 01/30/25 21:59 Not Given QSHIFT [facility] Heparin Sodium (Porcine) 3,800 unit 01/31/24 16:13 [...] 1,000 Ml IV 02/03/25 08:14 100 mls/hr .[id number] [facility] Administration Insulin Aspart 0 units 01/28/24 22:45 02/04/24 17:13 Insulin Aspart 300 Units/3 Ml Insuln.Pen SUBCUT 01/27/25 22:44 Not Given TID.WM.HS [facility] Protocol Isosorbide Dinitrate 20 mg 01/29/24 09:00 [...] signed by Swathi Burnham MD> 02/05/24 1529 [facility] Work Phone: 1(898) 214-991503-19-2024 Progress note Author Simba Kaufman [facility] February 05, 2024 1:04pm Note Date/Time February 05, 2024 1:0 4pm [facility] [address] [place] [address] Nephrology Progress Note Signed Patient: Adwoa Porter MR#: [id number] : 1955 Acct:[id number] Age/Sex: 68 / M Adm Date: 4 Loc: Room: [address] [place] [address] Type: ADM IN Attending Dr: Swathi Burnham MD Copies to: ~ Date of Service: 02/05/2024 Subjective Subjective Narrative: This is 68-year-old male patient with past medical history of systolic heart failure ejection fraction 10 to 15%, CKD stage III baseline creatinine around 1.5 mg deciliter last year, type 2 diabetes, hyperlipidemia, AICD in place, hypertension, COPD. Patient was admitted recently to [facility] for septic shock from cellulitis. Patient was stabilized and discharged to SNF withamikacin and 2 other antibiotics. Lab at SNF revealed SHIRA, hyperkalemia and hyponatremia and patient was sent to [facility]. Lab work this morning revealed potassium 5.3 [...] Skin: No rashes , warm to touch PR MANAGER: Awake,Alert, following simple command Musculoskeletal: No joint [...] Puff/6 Gm Hfa.Aer.Ad) 2 puff INHALATION BID [facility] Stop: 01/31/25 08:59 Calcitriol (Calcitriol 0.25 Mcg Capsule) 0.25 mcg PO MoWeFr@0900 [facility] Stop: 02/05/25 08:59 Carvedilol (Carvedilol 12.5 Mg Tablet) 12.5 mg PO BID [facility] Stop: 01/28/25 08:59 Last Admin: 02/05/24 09:13 [...] Unit/5 Ml Syringe) 500 unit IV-PUSH QSHIFT [facility] Stop: 01/30/25 21:59 Last Admin: 02/05/24 05:06 Dose: Not Given Heparin Sodium (Porcine) (Heparin 10,000 Unit/10 Ml Vial) 3,800 unit IV PRN PRN PRN Reason: Dialysis Stop: 01/28/25 14:06 Last Admin: 02/04/24 15:03 Dose: 3,800 unit Hydralazine HCl (Hydralazine 50 Mg Tablet) 50 mg PO TID [facility] Stop: 01/27/25 21:59 Last Admin: 02/05/24 09:13 [...] 100 mls @ 200 mls/hr IV Q24H [facility] Stop: 02/02/25 13:59 Last Admin: 02/04/24 17:56 Dose: 200 mls/hr Insulin Aspart (Insulin Aspart 300 Units/3 Ml Insuln.Pen) 0 units SUBCUT TID.WM.HS [facility]; Protocol Stop: 01/27/25 22:44 Last Admin: 02/05/24 09:15 Dose: 3 units Isosorbide Dinitrate (Isosorbide Dinitrate 20 Mg Tablet) 20 mg PO BID [facility] Stop: 01/28/25 08:59 Last Admin: 02/05/24 09:12 Dose: 20 mg Levothyroxine Sodium (Levothyroxine 50 Mcg Tablet) 50 mcg PO DAILY@0630 [facility] Stop: 01/29/25 06:29 Last Admin: 02/05/24 05:45 Dose: 50 mcg Linezolid (Linezolid 600 Mg Tablet) 600 mg PO BID [facility] Loperamide HCl (Loperamide 2 Mg Capsule) 2 mg PO Q2H PRN PRN Reason: Diarrhea Stop: 01/29/25 10:31 Last Admin: 02/05/24 11:33 Dose: 2 mg Nitroglycerin (Nitroglycerin 0.4 Mg Tab.Subl) 0.4 mg SUBLINGUAL Q5MIN.X3 PRN PRN Reason: Chest Pain Stop: 01/27/25 21:43 Nystatin (Nystatin 100,000 Unit/Gram Powder 15 Gm Bottle) 1 applic TOPICAL QID [facility] Stop: 01/29/25 08:59 Last Admin: 02/05/24 08:03 [...] lower leg: Plan: Patient was admitted to [facility] recently with septic shock from cellulitis. [...] concern. Documented By: Simba Kaufman MD 02/05/24 1002 Signed By: <Electronically signed by Simba Kaufman MD> 02/05/24 1302 [facility] Work Phone: 1(925) 111-268103-19-2024 Progress note Author Farhan Schofield [facility] February 05, 2024 9:20am Note Date/Time February 05, 2024 9:2 0am [facility] [address] [place] [address] Infect. Disease Progress Note Signed Patient: Adwoa Porter MR#: [id number] : 1955 Acct:[id number] Age/Sex: 68 / M Adm Date: 4 Loc: 4 Room: [address] [place] [address] Type: ADM IN Attending Dr: Swathi Burnham [...] 81 Mg Tablet.Dr) 81 mg PO DAILY [facility] Stop: 01/31/25 08:59 Last Admin: 02/05/24 09:12 Dose: 81 mg Atorvastatin Calcium (Atorvastatin 80 Mg Tablet) 80 mg PO DAILY [facility] Stop: 01/28/25 08:59 Last Admin: 02/05/24 09:12 Dose: 80 mg Budesonide/Formoterol Fumarate (Budesonide/Formoterol 160-4.5 Mcg 60 Puff/6 Gm Hfa.Aer.Ad) 2 puff INHALATION BID [facility] Stop: 01/31/25 08:59 Calcitriol (Calcitriol 0.25 Mcg Capsule) 0.25 mcg PO MoWeFr@0900 [facility] Stop: 02/05/25 08:59 Carvedilol (Carvedilol 12.5 Mg Tablet) 12.5 mg PO BID [facility] Stop: 01/28/25 08:59 Last Admin: 02/05/24 09:13 Dose: 12.5 mg Cyanocobalamin (Cyanocobalamin 1,000 Mcg Tablet) 1,000 mcg PO DAILY [facility] Stop: 01/31/25 08:59 Last Admin: 02/05/24 09:12 Dose: 1,000 mcg Gabapentin (Gabapentin 100 Mg Capsule) 200 mg PO TID PRN PRN Reason: nerve pain Stop: 01/30/25 21:59 Last Admin: 02/05/24 09:12 Dose: 200 mg Heparin Sodium (Porcine) (Heparin-Lock 500 Unit/5 Ml Syringe) 500 unit IV-PUSH QSHIFT [facility] Stop: 01/30/25 21:59 Last Admin: 02/05/24 05:06 Dose: Not Given Heparin Sodium (Porcine) (Heparin 10,000 Unit/10 Ml Vial) 3,800 unit IV PRN PRN PRN Reason: Dialysis Stop: 01/28/25 14:06 Last Admin: 02/04/24 15:03 Dose: 3,800 unit Hydralazine HCl (Hydralazine 50 Mg Tablet) 50 mg PO TID [facility] Stop: 01/27/25 21:59 Last Admin: 02/05/24 09:13 [...] 300 mls @ 300 mls/hr IV Q12H [facility] Last Admin: 02/05/24 03:32 Dose: 300 mls/hr Ertapenem 0.5 gm/ Sodium (Chloride) 100 mls @ 200 mls/hr IV Q24H [facility] Stop: 02/02/25 13:59 Last Admin: 02/04/24 17:56 Dose: 200 mls/hr Insulin Aspart (Insulin Aspart 300 Units/3 Ml Insuln.Pen) 0 units SUBCUT TID.WM.HS [facility]; Protocol Stop: 01/27/25 22:44 Last Admin: 02/05/24 09:15 Dose: 3 units Isosorbide Dinitrate (Isosorbide Dinitrate 20 Mg Tablet) 20 mg PO BID [facility] Stop: 01/28/25 08:59 Last Admin: 02/05/24 09:12 Dose: 20 mg Levothyroxine Sodium (Levothyroxine 50 Mcg Tablet) 50 mcg PO DAILY@0630 [facility] Stop: 01/29/25 06:29 Last Admin: 02/05/24 05:45 Dose: 50 mcg Loperamide HCl (Loperamide 2 Mg Capsule) 2 mg PO Q2H PRN PRN Reason: Diarrhea Stop: 01/29/25 10:31 Last Admin: 02/05/24 08:04 Dose: 2 mg Nitroglycerin (Nitroglycerin 0.4 Mg Tab.Subl) 0.4 mg SUBLINGUAL Q5MIN.X3 PRN PRN Reason: Chest Pain Stop: 01/27/25 21:43 Nystatin (Nystatin 100,000 Unit/Gram Powder 15 Gm Bottle) 1 applic TOPICAL QID [facility] Stop: 01/29/25 08:59 Last Admin: 02/05/24 08:03 [...] skin cedric only. Cultures were obtained from [place]. Antibiotics adjusted tolinezolid and ertapenem. Admission leukocytosis has resolved. Will continue ertapenem IV but switch Linezolid to oral. Given concern for underlying osteomyelitis planning prolonged treatment course. Patient will need platelets followed while on Linezolid. Wound care the foot is being managed by Dr. Arroyo in [place]. Documented By: Farhan Schofield MD 02/05/24917 Signed By: <Electronically signed by MD Farhan Schofield> 02/05/24919 [facility] Work Phone: 1(306) 533-436403-18-2024 Progress note Author Valentin Valle [facility] February 04, 2024 6:29pm Note Date/Time February 04, 2024 6:2 9pm [facility] [address] [place] [address] Podiatry Progress Note Signed Patient: Adwoa Porter MR#: [id number] : 1955 Acct:[id number] Age/Sex: 68 / M Adm Date: 4 Loc: Room: [address] [place] [address] Type: ADM IN Attending Dr: Swathi Burnham [...] Dr. Andrews. Theculture that was taken at [facility] revealed normal skinflora. Patient's antibiotic therapy is [...] From podiatry standpoint okay to discharge back [facility] with current wound care orders. Will continue [...] <Electronically signed by NELLY Valle> 02/04/24 1829 [facility] Work Phone: 1(682) 728-512903-18-2024 Progress note Author Simba Kaufman [facility] February 04, 2024 5:59pm Note Date/Time February 04, 2024 1:3 0pm [facility] [address] [place] [address] Nephrology Progress Note Signed Patient: Adwoa Porter MR#: [id number] : 1955 Acct:[id number] Age/Sex: 68 / M Adm Date: 4 Loc: Room: [address] [place] [address] Type: ADM IN Attending Dr: Swathi Burnham MD Copies to: ~ Date of Service: 02/04/2024 Subjective Subjective Narrative: This is 68-year-old male patient with past medical history of systolic heart failure ejection fraction 10 to 15%, CKD stage III baseline creatinine around 1.5 mg deciliter last year, type 2 diabetes, hyperlipidemia, AICD in place, hypertension, COPD. Patient was admitted recently to [facility] for septic shock from cellulitis. Patient was stabilized and discharged to [facility] withamikacin and 2 other antibiotics. Lab at [facility] revealed SHIRA, hyperkalemia and hyponatremia and patient was sent to [facility]. Lab work this morning revealed potassium 5.3 [...] Skin: No rashes , warm to touch PR MANAGER: Awake,Alert, following simple command Musculoskeletal: No joint [...] 2.5 Mg Tablet) 2.5 mg PO BID [facility] Stop: 01/31/25 20:59 Last Admin: 02/04/24 10:08 [...] 1,000 Mcg Tablet) 1,000 mcg PO DAILY [facility] Stop: 01/31/25 08:59 Last Admin: 02/03/24 08:23 Dose: 1,000 mcg Gabapentin (Gabapentin 100 Mg Capsule) 200 mg PO TID PRN PRN Reason: nerve pain Stop: 01/30/25 21:59 Last Admin: 02/03/24 21:04 Dose: 200 mg Heparin Sodium (Porcine) (Heparin-Lock 500 Unit/5 Ml Syringe) 500 unit IV-PUSH QSHIFT [facility] Stop: 01/30/25 21:59 Last Admin: 02/04/24 09:34 [...] 300 mls @ 300 mls/hr IV Q12H [facility] Last Admin: 02/04/24 03:43 Dose: 300 mls/hr Ertapenem 0.5 gm/ Sodium (Chloride) 100 mls @ 200 mls/hr IV Q24H [facility] Stop: 02/02/25 13:59 Last Admin: 02/03/24 14:11 Dose: 200 mls/hr Sodium Chloride (0.9% Sodium Chloride 1,000 Ml) 1,000 mls @ 75 mls/hr IV .[id number] [facility] Stop: 02/03/25 08:14 Last Admin: 02/04/24 08:04 Dose: 100 mls/hr Insulin Aspart (Insulin Aspart 300 Units/3 Ml Insuln.Pen) 0 units SUBCUT TID..[facility]; Protocol Stop: 01/27/25 22:44 Last Admin: 02/04/24 10:07 Dose: 3 units Isosorbide Dinitrate (Isosorbide Dinitrate 20 Mg Tablet) 20 mg PO BID [facility] Stop: 01/28/25 08:59 Last Admin: 02/04/24 10:08 Dose: Not Given Levothyroxine Sodium (Levothyroxine 50 Mcg Tablet) 50 mcg PO DAILY@0630 [facility] Stop: 01/29/25 06:29 Last Admin: 02/04/24 06:11 Dose: 50 mcg Loperamide HCl (Loperamide 2 Mg Capsule) 2 mg PO Q2H PRN PRN Reason: Diarrhea Stop: 01/29/25 10:31 Last Admin: 02/01/24 13:28 Dose: 2 mg Nitroglycerin (Nitroglycerin 0.4 Mg Tab.Subl) 0.4 mg SUBLINGUAL Q5MIN.X3 PRN PRN Reason: Chest Pain Stop: 01/27/25 21:43 Nystatin (Nystatin 100,000 Unit/Gram Powder 15 Gm Bottle) 1 applic TOPICAL QID [facility] Stop: 01/29/25 08:59 Last Admin: 02/04/24 10:08 [...] lower leg: Plan: Patient was admitted to [facility] recently with septic shock from cellulitis. [...] <Electronically signed by Simba Kaufman MD> 02/04/24 1474 [facility] Work Phone: 1([phone] 156-436703-18-2024 Progress note Author Farhan Schofield [facility] February 04, 2024 10:01am Note Date/Time February 04, 2024 10: 01am [facility] [address] [place] [address] Infect. Disease Progress Note Signed Patient: Adwoa Porter MR#: [id number] : 1955 Acct:[id number] Age/Sex: 68 / M Adm Date: 4 Loc: Room: [address] [place] [address] Type: ADM IN Attending Dr: Farhan Hudson [...] 1,000 Mcg Tablet) 1,000 mcg PO DAILY [facility] Stop: 01/31/25 08:59 Last Admin: 02/03/24 08:23 Dose: 1,000 mcg Gabapentin (Gabapentin 100 Mg Capsule) 200 mg PO TID PRN PRN Reason: nerve pain Stop: 01/30/25 21:59 Last Admin: 02/03/24 21:04 Dose: 200 mg Heparin Sodium (Porcine) (Heparin-Lock 500 Unit/5 Ml Syringe) 500 unit IV-PUSH QSHIFT [facility] Stop: 01/30/25 21:59 Last Admin: 02/04/24 09:34 Dose: Not Given Heparin Sodium (Porcine) (Heparin 10,000 Unit/10 Ml Vial) 3,800 unit IV PRN PRN PRN Reason: Dialysis Stop: 01/28/25 14:06 Last Admin: 02/02/24 12:08 Dose: 3,800 unit Hydralazine HCl (Hydralazine 50 Mg Tablet) 50 mg PO TID [facility] Stop: 01/27/25 21:59 Last Admin: 02/03/24 21:04 [...] 300 mls @ 300 mls/hr IV Q12H [facility] Last Admin: 02/04/24 03:43 Dose: 300 mls/hr Ertapenem 0.5 gm/ Sodium (Chloride) 100 mls @ 200 mls/hr IV Q24H [facility] Stop: 02/02/25 13:59 Last Admin: 02/03/24 14:11 Dose: 200 mls/hr Sodium Chloride (0.9% Sodium Chloride 1,000 Ml) 1,000 mls @ 75 mls/hr IV .[id number] [facility] Stop: 02/03/25 08:14 Last Admin: 02/04/24 08:04 Dose: 100 mls/hr Insulin Aspart (Insulin Aspart 300 Units/3 Ml Insuln.Pen) 0 units SUBCUT TID.WM.[facility]; Protocol Stop: 01/27/25 22:44 Last Admin: 02/03/24 21:06 Dose: 3 units Isosorbide Dinitrate (Isosorbide Dinitrate 20 Mg Tablet) 20 mg PO BID [facility] Stop: 01/28/25 08:59 Last Admin: 02/03/24 21:04 Dose: 20 mg Levothyroxine Sodium (Levothyroxine 50 Mcg Tablet) 50 mcg PO DAILY@0630 [facility] Stop: 01/29/25 06:29 Last Admin: 02/04/24 06:11 Dose: 50 mcg Loperamide HCl (Loperamide 2 Mg Capsule) 2 mg PO Q2H PRN PRN Reason: Diarrhea Stop: 01/29/25 10:31 Last Admin: 02/01/24 13:28 Dose: 2 mg Nitroglycerin (Nitroglycerin 0.4 Mg Tab.Subl) 0.4 mg SUBLINGUAL Q5MIN.X3 PRN PRN Reason: Chest Pain Stop: 01/27/25 21:43 Nystatin (Nystatin 100,000 Unit/Gram Powder 15 Gm Bottle) 1 applic TOPICAL QID [facility] Stop: 01/29/25 08:59 Last Admin: 02/04/24 01:09 [...] 10 Ml Syringe) 0 ml IV-PUSH QSHIFT [facility] Stop: 01/30/25 21:59 Last Admin: 02/04/24 09:34 [...] skin cedric only. Cultures were obtained from [place]. Antibiotics adjusted tolinezolid and ertapenem. Admission leukocytosis has improved and today is down to 10.1. Urine culture as above but only 15,000 colonies and sensitive to Invanz. Continuing Invanz and linezolid. Documented By: Farhan Schofield MD 02/04/24 0958 Signed By: <Electronically signed by MD Farhan Schofield> 02/04/24 100[address] [facility] Work Phone: 1([phone]) [phone] Procedure [facility]03-17-2024 Progress note Author Farhan Hudson [facility] February 03, 2024 4:43pm Note Date/Time February 03, 2024 4:4 3pm [facility] [address] [place] [address] Hospitalist Progress Note Signed Patient: Adwoa Porter MR#: [id number] : 1955 Acct:[id number] Age/Sex: 68 / M Adm Date: 4 Loc: Room: [address] [place] [address] Type: ADM IN Attending Dr: Farhan Hudson [...] on the region has exhibited improvement. His [id number] score is at minimum 5. Labile on [...] Tablet.Dr PO 01/31/25 08:59 81 mg DAILY RCAHANA Administration Atorvastatin Calcium 80 mg 01/29/24 09:00 [...] signed by Farhan Hudson DO> 02/03/24 1643 [facility] Work Phone: [phone] 169-267403-17-2024 Progress note Author Lia Law [facility] February 03, 2024 11:03am Note Date/Time February 03, 2024 11: 03am [facility] [address] [place] [address] Nephrology Progress Note Signed Patient: Adwoa Porter MR#: [id number] : 1955 Acct:[id number] Age/Sex: 68 / M Adm Date: 4 Loc: Room: [address] [place] [address] Type: ADM IN Attending Dr: Farhan Hudson DO Copies to: ~ Date of Service: 02/03/2024 Subjective Subjective Narrative: This is 68-year-old male patient with past medical history of systolic heart failure ejection fraction 10 to 15%, CKD stage III baseline creatinine around 1.5 mg deciliter last year, type 2 diabetes, hyperlipidemia, AICD in place, hypertension, COPD. Patient was admitted recently to [facility] for septic shock from cellulitis. Patient was stabilized and discharged to [facility] withamikacin and 2 other antibiotics. Lab at [facility] revealed SHIRA, hyperkalemia and hyponatremia and patient was sent to [facility]. Lab work this morning revealed potassium 5.3 [...] 300 mls @ 300 mls/hr IV Q12H [facility] Last Admin: 02/03/24 03:30 Dose: 300 mls/hr Ertapenem 0.5 gm/ Sodium (Chloride) 100 mls @ 200 mls/hr IV Q24H [facility] Stop: 02/02/25 13:59 Insulin Aspart (Insulin Aspart 300 Units/3 Ml Insuln.Pen) 0 units SUBCUT TID..[facility]; Protocol Stop: 01/27/25 22:44 Last Admin: 02/03/24 08:21 Dose: 4 units Isosorbide Dinitrate (Isosorbide Dinitrate 20 Mg Tablet) 20 mg PO BID [facility] Stop: 01/28/25 08:59 Last Admin: 02/03/24 08:23 Dose: 20 mg Levothyroxine Sodium (Levothyroxine 50 Mcg Tablet) 50 mcg PO DAILY@0630 [facility] Stop: 01/29/25 06:29 Last Admin: 02/03/24 06:02 Dose: 50 mcg Loperamide HCl (Loperamide 2 Mg Capsule) 2 mg PO Q2H PRN PRN Reason: Diarrhea Stop: 01/29/25 10:31 Last Admin: 02/01/24 13:28 Dose: 2 mg Nitroglycerin (Nitroglycerin 0.4 Mg Tab.Subl) 0.4 mg SUBLINGUAL Q5MIN.X3 PRN PRN Reason: Chest Pain Stop: 01/27/25 21:43 Nystatin (Nystatin 100,000 Unit/Gram Powder 15 Gm Bottle) 1 applic TOPICAL QID [facility] Stop: 01/29/25 08:59 Last Admin: 02/03/24 08:25 [...] lower leg: Plan: Patient was admitted to [facility] recently with septic shock from cellulitis. [...] signed by Lia Law MD> 02/03/24 1103 [facility] Work Phone: [phone] Progress note Author Farhan Hudson [facility] February 02, 2024 3:04pm Note Date/Time February 02, 2024 3:0 4pm [facility] [address] [place] [address] Hospitalist Progress Note Signed Patient: Adwoa Porter MR#: [id number] : 1955 Acct:[id number] Age/Sex: 68 / M Adm Date: 4 Loc: Room: [address] [place] [address] Type: ADM IN Attending Dr: Farhan Hudson [...] this will be a continued risk. His [id number] score is at minimum 5. Eliquis 2.5 [...] Tablet PO 01/28/25 08:59 80 mg DAILY RACHNAA Administration Budesonide/Formoterol Fumarate 2 puff 02/01/24 09:00 [...] Syringe IV-PUSH 01/30/25 21:59 Not Given QSHIFT [facility] Heparin Sodium (Porcine) 3,800 unit 01/31/24 16:13 [...] Insuln.Pen SUBCUT 01/27/25 22:44 Not Given TID.WM.[facility] Protocol Isosorbide Dinitrate 20 mg 01/29/24 09:00 02/02/24 09:59 Isosorbide Dinitrate 20 Mg Tablet PO 01/28/25 08:59 Not Given BID RACHANA Levothyroxine Sodium 50 mcg 01/30/24 06:30 02/02/24 05:42 Levothyroxine 50 Mcg Tablet PO 01/29/25 06:29 50 mcg DAILY@0630 [facility] Administration Loperamide HCl 2 mg 01/30/24 10:32 02/01/24 13:28 Loperamide 2 Mg Capsule PO 01/29/25 10:31 2 mg Q2H PRN Administration Diarrhea Nitroglycerin 0.4 mg 01/28/24 21:44 Nitroglycerin 0.4 Mg Tab.Subl SUBLINGUAL 01/27/25 21:43 Q5MIN.X3 PRN Chest Pain Nystatin 1 applic 01/30/24 09:00 02/02/24 09:59 Nystatin 100,000 Unit/Gram Powder 15 Gm Bottle TOPICAL 01/29/25 08:59 1 applic QID [facility] Administration Ondansetron HCl 4 mg 02/01/24 14:35 [...] <Electronically signed by Farhan Hudson DO> 02/02/24 8191 [facility] Work Phone: [phone] 165-730503-16-2024 Progress note Author Valentin Valle [facility] February 02, 2024 12:48pm Note Date/Time February 02, 2024 12: 48pm [facility] [address] [place] [address] Podiatry Progress Note Signed Patient: Adwoa Porter MR#: [id number] : 1955 Acct:[id number] Age/Sex: 68 / M Adm Date: 4 Loc: Room: [address] [place] [address] Type: ADM IN Attending Dr: Farhan Hudson [...] . The culture that was taken at [facility] revealed normal skin cedric. Patient's antibiotic therapy [...] From podiatry standpoint okay to discharge back [facility] with current wound care orders. Will continue [...] <Electronically signed by NELLY Valle> 02/02/24 1248 [facility] Work Phone: [phone]) 768-990503-16-2024 Progress note Author Lia Law [facility] February 02, 2024 12:47pm Note Date/Time February 02, 2024 12: 47pm [facility] [address] [place] [address] Nephrology Progress Note Signed Patient: Adwoa Porter MR#: [id number] : 1955 Acct:[id number] Age/Sex: 68 / M Adm Date: 4 Loc: 4 Room: 7U3666-9 Type: ADM IN Attending Dr: Farhan Hudson DO Copies to: ~ Date of Service: 02/02/2024 Subjective Subjective Narrative: This is 68-year-old male patient with past medical history of systolic heart failure ejection fraction 10 to 15%, CKD stage III baseline creatinine around 1.5 mg deciliter last year, type 2 diabetes, hyperlipidemia, AICD in place, hypertension, COPD. Patient was admitted recently to [facility] for septic shock from cellulitis. Patient was stabilized and discharged to [facility] withamikacin and 2 other antibiotics. Lab at [facility] revealed SHIRA, hyperkalemia and hyponatremia and patient was sent to [facility]. Lab work this morning revealed potassium 5.3 [...] Puff/6 Gm Hfa.Aer.Ad) 2 puff INHALATION BID [facility] Stop: 01/31/25 08:59 Carvedilol (Carvedilol 12.5 Mg [...] Unit/5 Ml Syringe) 500 unit IV-PUSH QSHIFT [facility] Stop: 01/30/25 21:59 Last Admin: 02/02/24 07:02 Dose: Not Given Heparin Sodium (Porcine) (Heparin 10,000 Unit/10 Ml Vial) 3,800 unit IV PRN PRN PRN Reason: Dialysis Stop: 01/28/25 14:06 Last Admin: 02/02/24 12:08 Dose: 3,800 unit Hydralazine HCl (Hydralazine 50 Mg Tablet) 50 mg PO TID [facility] Stop: 01/27/25 21:59 Last Admin: 02/02/24 09:59 Dose: Not Given Linezolid (Zyvox) 600 mg in 300 mls @ 300 mls/hr IV Q12H [facility] Last Admin: 02/01/24 23:20 Dose: 300 mls/hr [...] 100 mls @ 200 mls/hr IV Q24H [facility] Stop: 01/30/25 09:59 Last Admin: 02/01/24 10:35 Dose: 200 mls/hr Insulin Aspart (Insulin Aspart 300 Units/3 Ml Insuln.Pen) 0 units SUBCUT TID.WM.[facility]; Protocol Stop: 01/27/25 22:44 Last Admin: 02/01/24 21:02 Dose: 4 units Isosorbide Dinitrate (Isosorbide Dinitrate 20 Mg Tablet) 20 mg PO BID [facility] Stop: 01/28/25 08:59 Last Admin: 02/02/24 09:59 Dose: Not Given Levothyroxine Sodium (Levothyroxine 50 Mcg Tablet) 50 mcg PO DAILY@0630 [facility] Stop: 01/29/25 06:29 Last Admin: 02/02/24 05:42 Dose: 50 mcg Loperamide HCl (Loperamide 2 Mg Capsule) 2 mg PO Q2H PRN PRN Reason: Diarrhea Stop: 01/29/25 10:31 Last Admin: 02/01/24 13:28 Dose: 2 mg Nitroglycerin (Nitroglycerin 0.4 Mg Tab.Subl) 0.4 mg SUBLINGUAL Q5MIN.X3 PRN PRN Reason: Chest Pain Stop: 01/27/25 21:43 Nystatin (Nystatin 100,000 Unit/Gram Powder 15 Gm Bottle) 1 applic TOPICAL QID [facility] Stop: 01/29/25 08:59 Last Admin: 02/02/24 09:59 [...] lower leg: Plan: Patient was admitted to [facility] recently with septic shock from cellulitis. [...] <Electronically signed by Lia Law MD> 02/02/24 1244 [facility] Work Phone: [phone] 668-838203-15-2024 Progress note Author Valentin Valle [facility] February 01, 2024 2:37pm Note Date/Time February 01, 2024 2:3 7pm [facility] [address] [place] [address] Podiatry Progress Note Signed Patient: Adwoa Porter MR#: [id number] : 1955 Acct:[id number] Age/Sex: 68 / M Adm Date: 4 Loc: Room: [address] [place] [address] Type: ADM IN Attending Dr: Farhan Hudson [...] Plan: The culture that was taken at [facility] revealed normal skin cedric. Patient's white blood [...] podiatry standpoint okay to discharge back to [facility] with current wound care orders. Will [...] By: <Electronically signed by NELLY Valle> 02/01/24 1257 [facility] Work Phone: [phone] Progress note Author Farhan Hudson [facility] February 01, 2024 1:53pm Note Date/Time February 01, 2024 1:5 3pm [facility] [address] [place] [address] Hospitalist Progress Note Signed Patient: Adwoa Porter MR#: [id number] : 1955 Acct:[id number] Age/Sex: 68 / M Adm Date: 4 Loc: Room: [address] [place] [address] Type: ADM IN Attending Dr: Farhan Hudson [...] this will be a continued risk. His [id number] score is at minimum 5 and undoubtedly [...] <Electronically signed by Farhan Hudson DO> 02/01/24 7767 [facility] Work Phone: [phone]) 417-975603-15-2024 Progress note Author Lia Law [facility] February 01, 2024 1:11pm Note Date/Time February 01, 2024 1:1 1pm [facility] [address] [place] [address] Nephrology Progress Note Signed Patient: Adwoa Porter MR#: [id number] : 1955 Acct:[id number] Age/Sex: 68 / M Adm Date: 4 Loc: Room: [id number] Type: ADM IN Attending Dr: Farhan Hudson DO Copies to: ~ Date of Service: 02/01/2024 Subjective Subjective Narrative: This is 68-year-old male patient with past medical history of systolic heart failure ejection fraction 10 to 15%, CKD stage III baseline creatinine around 1.5 mg deciliter last year, type 2 diabetes, hyperlipidemia, AICD in place, hypertension, COPD. Patient was admitted recently to [facility] for septic shock from cellulitis. Patient was stabilized and discharged to [facility] withamikacin and 2 other antibiotics. Lab at [facility] revealed SHIRA, hyperkalemia and hyponatremia and patient was sent to [facility]. Lab work this morning revealed potassium 5.3 [...] 12.5 Mg Tablet) 12.5 mg PO BID [facility] Stop: 01/28/25 08:59 Last Admin: 02/01/24 08:44 Dose: 12.5 mg Cyanocobalamin (Cyanocobalamin 1,000 Mcg Tablet) 1,000 mcg PO DAILY [facility] Stop: 01/31/25 08:59 Last Admin: 02/01/24 08:44 Dose: 1,000 mcg Gabapentin (Gabapentin 100 Mg Capsule) 200 mg PO TID PRN PRN Reason: nerve pain Stop: 01/30/25 21:59 Last Admin: 02/01/24 11:14 Dose: 200 mg Heparin Sodium (Porcine) (Heparin 5,000 Unit/Ml Vial) 5,000 unit SUBCUT Q8HR [facility] Stop: 01/27/25 21:59 Last Admin: 02/01/24 05:58 Dose: Not Given Heparin Sodium (Porcine) (Heparin-Lock 500 Unit/5 Ml Syringe) 500 unit IV-PUSH QSHIFT [facility] Stop: 01/30/25 21:59 Last Admin: 02/01/24 05:59 Dose: Not Given Heparin Sodium (Porcine) (Heparin 10,000 Unit/10 Ml Vial) 3,800 unit IV PRN PRN PRN Reason: Dialysis Stop: 01/28/25 14:06 Last Admin: 01/31/24 16:49 Dose: 3,800 unit Hydralazine HCl (Hydralazine 50 Mg Tablet) 50 mg PO TID [facility] Stop: 01/27/25 21:59 Last Admin: 02/01/24 08:44 Dose: 50 mg Linezolid (Zyvox) 600 mg in 300 mls @ 300 mls/hr IV Q12H [facility] Last Admin: 02/01/24 11:10 Dose: 300 mls/hr [...] 100 mls @ 200 mls/hr IV Q24H [facility] Stop: 01/30/25 09:59 Last Admin: 02/01/24 10:35 Dose: 200 mls/hr Insulin Aspart (Insulin Aspart 300 Units/3 Ml Insuln.Pen) 0 units SUBCUT TID..[facility]; Protocol Stop: 01/27/25 22:44 Last Admin: 02/01/24 11:44 Dose: 4 units Isosorbide Dinitrate (Isosorbide Dinitrate 20 Mg Tablet) 20 mg PO BID [facility] Stop: 01/28/25 08:59 Last Admin: 02/01/24 08:44 Dose: 20 mg Levothyroxine Sodium (Levothyroxine 50 Mcg Tablet) 50 mcg PO DAILY@0630 [facility] Stop: 01/29/25 06:29 Last Admin: 02/01/24 06:03 Dose: 50 mcg Loperamide HCl (Loperamide 2 Mg Capsule) 2 mg PO Q2H PRN PRN Reason: Diarrhea Stop: 01/29/25 10:31 Last Admin: 02/01/24 09:08 Dose: 2 mg Nitroglycerin (Nitroglycerin 0.4 Mg Tab.Subl) 0.4 mg SUBLINGUAL Q5MIN.X3 PRN PRN Reason: Chest Pain Stop: 01/27/25 21:43 Nystatin (Nystatin 100,000 Unit/Gram Powder 15 Gm Bottle) 1 applic TOPICAL QID [facility] Stop: 01/29/25 08:59 Last Admin: 02/01/24 09:08 [...] 10 Ml Syringe) 0 ml IV-PUSH QSHIFT [facility] Stop: 01/30/25 21:59 Last Admin: 02/01/24 05:59 [...] lower leg: Plan: Patient was admitted to [facility] recently with septic shock from cellulitis. [...] signed by Lia Law MD> 02/01/24 1311 [facility] Work Phone: [phone] Progress note Author Farhan Schofield [facility] February 01, 2024 12:41pm Note Date/Time February 01, 2024 12: 41pm [facility] [address] [place] [address] Infect. Disease Progress Note Signed Patient: Adwoa Porter MR#: [id number] : 1955 Acct:[id number] Age/Sex: 68 / M Adm Date: 4 Loc: Room: [address] [place] [address] Type: ADM IN Attending Dr: Farhan Hudson [...] 81 Mg Tablet.) 81 mg PO DAILY [facility] Stop: 01/31/25 08:59 Last Admin: 02/01/24 08:44 [...] 1,000 Mcg Tablet) 1,000 mcg PO DAILY [facility] Stop: 01/31/25 08:59 Last Admin: 02/01/24 08:44 [...] Unit/5 Ml Syringe) 500 unit IV-PUSH QSHIFT [facility] Stop: 01/30/25 21:59 Last Admin: 02/01/24 05:59 Dose: Not Given Heparin Sodium (Porcine) (Heparin 10,000 Unit/10 Ml Vial) 3,800 unit IV PRN PRN PRN Reason: Dialysis Stop: 01/28/25 14:06 Last Admin: 01/31/24 16:49 Dose: 3,800 unit Hydralazine HCl (Hydralazine 50 Mg Tablet) 50 mg PO TID [facility] Stop: 01/27/25 21:59 Last Admin: 02/01/24 08:44 Dose: 50 mg Linezolid (Zyvox) 600 mg in 300 mls @ 300 mls/hr IV Q12H [facility] Last Admin: 02/01/24 11:10 Dose: 300 mls/hr [...] 100 mls @ 200 mls/hr IV Q24H [facility] Stop: 01/30/25 09:59 Last Admin: 02/01/24 10:35 Dose: 200 mls/hr Insulin Aspart (Insulin Aspart 300 Units/3 Ml Insuln.Pen) 0 units SUBCUT TID.WM.[facility]; Protocol Stop: 01/27/25 22:44 Last Admin: 02/01/24 11:44 Dose: 4 units Isosorbide Dinitrate (Isosorbide Dinitrate 20 Mg Tablet) 20 mg PO BID [facility] Stop: 01/28/25 08:59 Last Admin: 02/01/24 08:44 Dose: 20 mg Levothyroxine Sodium (Levothyroxine 50 Mcg Tablet) 50 mcg PO DAILY@0630 [facility] Stop: 01/29/25 06:29 Last Admin: 02/01/24 06:03 Dose: 50 mcg Loperamide HCl (Loperamide 2 Mg Capsule) 2 mg PO Q2H PRN PRN Reason: Diarrhea Stop: 01/29/25 10:31 Last Admin: 02/01/24 09:08 Dose: 2 mg Nitroglycerin (Nitroglycerin 0.4 Mg Tab.Subl) 0.4 mg SUBLINGUAL Q5MIN.X3 PRN PRN Reason: Chest Pain Stop: 01/27/25 21:43 Nystatin (Nystatin 100,000 Unit/Gram Powder 15 Gm Bottle) 1 applic TOPICAL QID [facility] Stop: 01/29/25 08:59 Last Admin: 02/01/24 09:08 [...] 10 Ml Syringe) 0 ml IV-PUSH QSHIFT [facility] Stop: 01/30/25 21:59 Last Admin: 02/01/24 05:59 Dose: 10 ml Vitamin D (Cholecalciferol 25 Mcg (1,000 Units) Tablet) 50 mcg PO DAILY [facility] Stop: 01/31/25 08:59 Last Admin: 03/15/24 08:43 [...] skin cedric only. Cultures were obtained from [place]. Antibiotics adjusted tolinezolid and ertapenem. Admission leukocytosis has improved. Today down to 11.4. Vascular continues to follow patient. No foot surgery planned for while he is here at this time he will follow-up with Dr. Arroyo upon discharge Documented By: Farhan Schofield MD 02/01/24 1237 Signed By: <Electronically signed by MD Farhan Schofield> 02/01/24 1241 [facility] Work Phone: 1([phone]) 870-145803-15-2024 Progress note Author Selin George [facility] February 01, 2024 11:33am Note Date/Time February 01, 2024 8:4 6am [facility] [address] [place] [address] Vascular Surgery Progress Note Signed Patient: Adwoa Porter MR#: [id number] : 1955 Acct:[id number] Age/Sex: 68 / M Adm Date: 4 Loc: Room: [address] [place] [address] Type: ADM IN Attending Dr: Farhan Hudson [...] MPV Neut % (Auto) Lymph % (Auto) [place] % (Auto) Eos % (Auto) Baso % (Auto) Nucleat RBC Rel Count Neut # (Auto) Lymph # (Auto) [place] # (Auto) Eos # (Auto) Baso # (Auto) PT INR APTT PHA Creatinine Clear Sodium Potassium Chloride Carbon Dioxide Anion Gap BUN Creatinine Est GFR (CKD-EPI) Glucose POC Glucose 191 116 Calcium HCV RNA (PCR) IU/mL N/A HCV RNA PCR epic kaleidoscope analyst log10 N/A 02/01/24 02/01/24 06:00 08:04 Corrected WBC 11.4 H Uncorrected WBC Count 11.4 H RBC 3.24 L Hgb 8.7 L Hct 25.7 L MCV 79.4 L MCH 26.8 L MCHC 33.8 RDW 17.2 H Plt Count 285 MPV 7.3 Neut % (Auto) 82.0 Lymph % (Auto) 10.2 [place] % (Auto) 4.9 Eos % (Auto) 2.0 Baso % (Auto) 0.9 Nucleat RBC Rel Count 0.0 Neut # (Auto) 9.4 H Lymph # (Auto) 1.2 [place] # (Auto) 0.6 Eos # (Auto) 0.2 Baso # (Auto) 0.1 PT 21.5 H INR 1.9 APTT 36.7 H PHA Creatinine Clear 26.53 Sodium 133 L Potassium 4.1 Chloride 96 L Carbon Dioxide 27.5 Anion Gap 13.6 BUN 35 H Creatinine 2.98 H Est GFR (CKD-EPI) 21.976 Glucose 169 H POC Glucose 202 Calcium 7.0 L HCV RNA (PCR) IU/mL HCV RNA PCR epic kaleid[facility] analyst log10 Microbiology Microbiology: Microbiology - Results from [...] today. Documented By: Raul Bravo MD 02/01/24 0873 Signed By: <Electronically signed by Raul Bravo MD> 02/01/24 0959 <Electronically signed by CHARISSE George> 02/01/24 0763 [facility] Work Phone: [phone] 381-562103-14-2024 Progress note Author Farhan Hudson [facility] January 31, 2024 9:28pm Note Date/Time January 31, 2024 9:2 8pm [facility] [address] [place] [address] Hospitalist Progress Note Signed Patient: Adwoa Porter MR#: [id number] : 1955 Acct:[id number] Age/Sex: 68 / M Adm Date: 4 Loc: 4 Room: [id number] Type: ADM IN Attending Dr: Farhan Hudson [...] Syringe IV-PUSH 01/30/25 21:59 Not Given QSHIFT [facility] Heparin Sodium (Porcine) 3,800 unit 01/31/24 16:13 [...] Insuln.Pen SUBCUT 01/27/25 22:44 Not Given TID.WM.HS [facility] Protocol Isosorbide Dinitrate 20 mg 01/29/24 09:00 [...] Bottle TOPICAL 01/29/25 08:59 1 applic QID RACAHNA Administration Sodium Chloride 0 ml 01/29/24 14:07 [...] By: <Electronically signed by Farhan Hudson DO> 01/31/243 [facility] Work Phone: 1(173) 520-841603-14-2024 Progress note Author Farhan Hudson [facility] January 31, 2024 2:00pm Note Date/Time January 30, 2024 8:3 2pm [facility] [address] [place] [address] Hospitalist Progress Note Signed Patient: Adwoa Porter MR#: [id number] : 1955 Acct:[id number] Age/Sex: 68 / M Adm Date: 4 Loc: Room: [address] [place] [address] Type: ADM IN Attending Dr: Farhan Hudson [...] signed by Farhan Hudson DO> 01/31/24 1400 [facility] Work Phone: 1(312) 267-958603-14-2024 Procedure [facility]03-14-2024 Procedure [facility]03-14-2024 Progress note Author Farhan Schofield [facility] January 31, 2024 9:24am Note Date/Time January 31, 2024 9:1 0am [facility] [address] [place] [address] Infect. Disease Progress Note Signed Patient: Adwoa Porter MR#: [id number] : 1955 Acct:[id number] Age/Sex: 68 / M Adm Date: 4 Loc: 4 Room: [address] [place] [address] Type: ADM IN Attending Dr: Farhan Hudson [...] 12.5 Mg Tablet) 12.5 mg PO BID [facility] Stop: 01/28/25 08:59 Last Admin: 01/30/24 20:37 Dose: 12.5 mg Heparin Sodium (Porcine) (Heparin 5,000 Unit/Ml Vial) 5,000 unit SUBCUT Q8HR [facility] Stop: 01/27/25 21:59 Last Admin: 01/31/24 06:38 Dose: Not Given Heparin Sodium (Porcine) (Heparin 10,000 Unit/10 Ml Vial) 2,600 unit IV PRN PRN PRN Reason: Dialysis Stop: 01/28/25 14:06 Last Admin: 01/29/24 15:13 Dose: 2,600 unit Hydralazine HCl (Hydralazine 50 Mg Tablet) 50 mg PO TID [facility] Stop: 01/27/25 21:59 Last Admin: 01/31/24 03:12 Dose: Not Given Ceftriaxone Sodium (Rocephin) 1 gm in 50 mls @ 100 mls/hr IV Q24H [facility] Last Admin: 01/30/24 20:37 Dose: 100 mls/hr Linezolid (Zyvox) 600 mg in 300 mls @ 300 mls/hr IV Q12H [facility] Last Admin: 01/30/24 21:37 Dose: 300 mls/hr [...] Units/3 Ml Insuln.Pen) 0 units SUBCUT TID.WM.HS [facility]; Protocol Stop: 01/27/25 22:44 Last Admin: 01/31/24 08:51 Dose: Not Given Isosorbide Dinitrate (Isosorbide Dinitrate 20 Mg Tablet) 20 mg PO BID [facility] Stop: 01/28/25 08:59 Last Admin: 03/13/24 20:37 [...] dressing changes. Based on culture results from [facility] though faxed copy difficult to see given blacked out names of organisms. ? 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 Change ceftriaxone to invanz; maintain linezolid. Documented By: Farhan Schofield MD 01/31/2407 Signed By: <Electronically signed by MD Farhan Schofield> 01/31/24923 [facility] Work Phone: 1(172) 263-754703-14-2024 Progress note Author Valentin Valle [facility] January 31, 2024 9:18am Note Date/Time January 31, 2024 9:1 6am [facility] [address] [place] [address] Podiatry Progress Note Signed Patient: Adwoa Porter MR#: [id number] : 1955 Acct:[id number] Age/Sex: 68 / M Adm Date: 4 Loc: 4 Room: [address] [place] [address] Type: ADM IN Attending Dr: Farhan Hudson [...] <Electronically signed by NELLY Valle> 01/31/24 0918 [facility] Work Phone: 1([phone]) 375-808303-14-2024 Consult note Author Raul Bravo [facility] January 31, 2024 8:34am Note Date/Time January 30, 2024 9:1 9am [facility] [address] [place] [address] Vascular Surgery Consult Note Signed Patient: Adwoa Porter MR#: [id number] : 1955 Acct:[id number] Age/Sex: 68 / M Adm Date: 4 Loc: 4 Room: [address] [place] [address] Type: ADM IN Attending Dr: Farhan Hudson [...] for tunneled hemodialysis catheter. 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 [facility] Medical History (Updated 01/29/24 @ 18:01 [...] MPV Neut % (Auto) Lymph % (Auto) [place] % (Auto) Eos % (Auto) Baso % (Auto) Nucleat RBC Rel Count Neut # (Auto) Lymph # (Auto) [place] # (Auto) Eos # (Auto) Baso # (Auto) PHA Creatinine Clear Sodium Potassium Chloride Carbon Dioxide Anion Gap BUN Creatinine Est GFR (CKD-EPI) Glucose POC Glucose 236 Calcium Urine Color Dark yellow A Urine Appearance Cloudy A Urine pH 5.0 Ur Specific [place] 1.019 Urine Protein 100 H Urine Glucose [...] % (Auto) 83.7 Lymph % (Auto) 9.8 [place] % (Auto) 3.8 Eos % (Auto) 1.7 Baso % (Auto) 1.0 Nucleat RBC Rel Count 0.0 Neut # (Auto) 11.3 H Lymph # (Auto) 1.3 [place] # (Auto) 0.5 Eos # (Auto) 0.2 Baso # (Auto) 0.1 PHA Creatinine Clear 17.22 Sodium 128 L Potassium 4.2 D Chloride 95 L Carbon Dioxide 21.9 Anion Gap 15.3 H BUN 73 H D Creatinine 4.57 H D Est GFR (CKD-EPI) 13.156 Glucose 144 H POC Glucose 256 170 Calcium 7.1 L Urine Color Urine Appearance Urine pH Ur Specific [place] Urine Protein Urine Glucose (UA) Urine Ketones [...] <Electronically signed by CHARISSE George> 01/31/24 0737 [facility] Work Phone: 1(325) 409-750803-13-2024 Progress note [facility] January 30, 2024 2:30pm Note Date/Time January 30, 2024 2:3 0pm [facility] [address] [place] [address] Nephrology Progress Note Signed Patient: Adwoa Porter MR#: [id number] : 1955 Acct:[id number] Age/Sex: 68 / M Adm Date: 4 Loc: Room: [address] [place] [address] Type: ADM IN Attending Dr: Farhan Hudson DO Copies to: ~ Date of Service: 01/30/2024 Subjective Subjective Narrative: This is 68-year-old male patient with past medical history of systolic heart failure ejection fraction 10 to 15%, CKD stage III baseline creatinine around 1.5 mg deciliter last year, type 2 diabetes, hyperlipidemia, AICD in place, hypertension, COPD. Patient was admitted recently to [facility] for septic shock from cellulitis. Patient was stabilized and discharged to [facility] withamikacin and 2 other antibiotics. Lab at [facility] revealed SHIRA, hyperkalemia and hyponatremia and patient was sent to [facility]. Lab work this morning revealed potassium 5.3 [...] 50 mls @ 100 mls/hr IV Q24H [facility] Last Admin: 01/29/24 21:13 Dose: 100 mls/hr Linezolid (Zyvox) 600 mg in 300 mls @ 300 mls/hr IV Q12H [facility] Last Admin: 01/30/24 10:50 Dose: 300 mls/hr [...] Units/3 Ml Insuln.Pen) 0 units SUBCUT TID.WM.HS [facility]; Protocol Stop: 01/27/25 22:44 Last Admin: 01/30/24 12:52 Dose: 8 units Isosorbide Dinitrate (Isosorbide Dinitrate 20 Mg Tablet) 20 mg PO BID [facility] Stop: 01/28/25 08:59 Last Admin: 01/30/24 09:02 Dose: 20 mg Levothyroxine Sodium (Levothyroxine 50 Mcg Tablet) 50 mcg PO DAILY@0630 [facility] Stop: 01/29/25 06:29 Last Admin: 01/30/24 07:31 Dose: 50 mcg Loperamide HCl (Loperamide 2 Mg Capsule) 2 mg PO Q2H PRN PRN Reason: Diarrhea Stop: 01/29/25 10:31 Last Admin: 01/30/24 12:52 Dose: 2 mg Nitroglycerin (Nitroglycerin 0.4 Mg Tab.Subl) 0.4 mg SUBLINGUAL Q5MIN.X3 PRN PRN Reason: Chest Pain Stop: 01/27/25 21:43 Nystatin (Nystatin 100,000 Unit/Gram Powder 15 Gm Bottle) 1 applic TOPICAL QID [facility] Stop: 01/29/25 08:59 Last Admin: 01/30/24 09:03 [...] Cloudy A Urine pH 5.0 Ur Specific [place] 1.019 Urine Protein 100 H Urine Glucose [...] lower leg: Plan: Patient was admitted to [facility] recently with septic shock from cellulitis. [...] signed by Lia Law MD> 01/30/24 1430 [facility] Work Phone: 1(755) 863-429403-13-2024 Progress note Author Valentin Valle [facility] January 30, 2024 11:44am Note Date/Time January 30, 2024 11: 44am [facility] [address] [place] [address] Podiatry Progress Note Signed Patient: Adwoa Porter MR#: [id number] : 1955 Acct:[id number] Age/Sex: 68 / M Adm Date: 4 Loc: Room: [address] [place] [address] Type: ADM IN Attending Dr: Farhan Hudson [...] therapy is currently being managed by Dr. Schofiled and he is currently taking linezolid and [...] <Electronically signed by NELLY Valle> 01/30/24 1144 [facility] Work Phone: 1(291) 345-882803-13-2024 Progress note Author Farhan Schofield [facility] January 30, 2024 11:06am Note Date/Time January 30, 2024 11: 06am [facility] [address] [place] [address] Infect. Disease Progress Note Signed Patient: Adwoa Porter MR#: [id number] : 1955 Acct:[id number] Age/Sex: 68 / M Adm Date: 4 Loc: Room: [address] [place] [address] Type: ADM IN Attending Dr: Farhan Hudson [...] 50 Mg Tablet) 50 mg PO TID [facility] Stop: 01/27/25 21:59 Last Admin: 01/30/24 09:02 Dose: 50 mg Ceftriaxone Sodium (Rocephin) 1 gm in 50 mls @ 100 mls/hr IV Q24H [facility] Last Admin: 01/29/24 21:13 Dose: 100 mls/hr Linezolid (Zyvox) 600 mg in 300 mls @ 300 mls/hr IV Q12H [facility] Last Admin: 01/30/24 10:50 Dose: 300 mls/hr [...] 300 Units/3 Ml Insuln.Pen) 0 units SUBCUT TID.[facility]; Protocol Stop: 01/27/25 22:44 Last Admin: 01/30/24 09:02 Dose: 3 units Isosorbide Dinitrate (Isosorbide Dinitrate 20 Mg Tablet) 20 mg PO BID [facility] Stop: 01/28/25 08:59 Last Admin: 01/30/24 09:02 Dose: 20 mg Levothyroxine Sodium (Levothyroxine 50 Mcg Tablet) 50 mcg PO DAILY@0630 [facility] Stop: 01/29/25 06:29 Last Admin: 01/30/24 07:31 Dose: 50 mcg Loperamide HCl (Loperamide 2 Mg Capsule) 2 mg PO Q2H PRN PRN Reason: Diarrhea Stop: 01/29/25 10:31 Last Admin: 01/30/24 10:56 Dose: 2 mg Nitroglycerin (Nitroglycerin 0.4 Mg Tab.Subl) 0.4 mg SUBLINGUAL Q5MIN.X3 PRN PRN Reason: Chest Pain Stop: 01/27/25 21:43 Nystatin (Nystatin 100,000 Unit/Gram Powder 15 Gm Bottle) 1 applic TOPICAL QID [facility] Stop: 01/29/25 08:59 Last Admin: 01/30/24 09:03 [...] <Electronically signed by MD Farhan Schofield> 01/30/24 2101 [facility] Work Phone: 1(612) 587-528303-13-2024 Progress note Author Farhan Hudson [facility] January 29, 2024 11:06pm Note Date/Time January 29, 2024 11: 06pm [facility] [address] [place] [address] Hospitalist Progress Note Signed Patient: Adwoa Porter MR#: [id number] : 1955 Acct:[id number] Age/Sex: 68 / M Adm Date: 4 Loc: Room: [address] [place] [address] Type: ADM IN Attending Dr: Farhan Hudson [...] <Electronically signed by Farhan Hudson DO> 01/29/24 3148 [facility] Work Phone: 1([phone]) 111-702803-12-2024 Consult note Author Valentin Valle [facility] January 29, 2024 7:19pm Note Date/Time January 29, 2024 6:1 0pm [facility] [address] [place] [address] Podiatry Consult Note Signed with Ramona Patient: Adwoa Porter MR#: [id number] : 1955 Acct:[id number] Age/Sex: 68 / M Adm Date: 4 Loc: Room: [address] [place] [address] Type: ADM IN Attending Dr: Farhan Hudson [...] in bed. Patient was transferred here from [facility] due to severe kidney diseaserequiring hemodialysis. Patient currently denies any history of nausea, vomiting, fever or chills. Patient was recently hospitalized for septic shock apparently 2 weeks ago at [facility]. Patient was seen by Dr. Arroyoand his fellows there for an abscess foot. They had done a wide I&D done to treat the abscess to foot. Patient was then sent to [facility] with orders for a wound VAC. Patient was seen by Dr. Arroyo about 2 weeks ago and was told that everything looked good. Patient again was sent to [facility] for his kidney disease and upon evaluation [...] Skin/Breast: Reports skin ulcer and Reports wounds [facility] Medical History (Updated 01/29/24 @ 18:01 [...] tried to speak with Dr. Arroyo the pie crust mixer who did the an I&D of the left foot however he was out of town at a conference. I did speak with his fellow that he is training, Dr. Herminio Souza ([phone]). Dr. Souza mentioned that they had to do an emergent I&D due to an abscess on the left foot. This happened on 01/17/2024. Patient was then discharged to [facility] with orders to begin for a wound VAC. Patient was placed on multiple antibiotic therapy ultimately he then was placed on amikacin. Due to abnormal lab work patient was sent to [facility] and then was transferred to [facility] for hemodialysis and kidney disease. Dr. [...] By: <Electronically signed by NELLY Valle> 01/29/24 1545 [facility] Work Phone: 1([phone]) 540-378203-12-2024 Consult note Author Lia Law [facility] January 29, 2024 3:28pm Note Date/Time January 29, 2024 9:5 7am [facility] [address] [place] [address] Nephrology Consult Note Signed Patient: Adwoa Porter MR#: [id number] : 1955 Acct:[id number] Age/Sex: 68 / M Adm Date: 4 Loc: Room: [address] [place] [address] Type: ADM IN Attending Dr: Farhan Hudson [...] hypertension, COPD. Patient was admitted recently to [facility] for septic shock from cellulitis. Patient was stabilized and discharged to [facility] withamikacin and 2 other antibiotics. Lab at [facility] revealed SHIRA, hyperkalemia and hyponatremia and patient was sent to [facility]. Lab work this morning revealed potassium 5.3 [...] systems: 12 system review is negative today [facility] Medical History (Updated 01/29/24 @ 15:21 [...] 50 mls @ 100 mls/hr IV Q24H [facility] Last Admin: 01/28/24 22:57 Dose: 100 mls/hr Linezolid (Zyvox) 600 mg in 300 mls @ 300 mls/hr IV Q12H [facility] Last Admin: 01/28/24 23:39 Dose: 300 mls/hr Sodium Chloride (0.9% Sodium Chloride 1,000 Ml) 1,000 mls @ 100 mls/hr IV .[id number] Stop: 01/27/25 21:44 Last Admin: 01/28/24 23:37 Dose: 100 mls/hr Insulin Aspart (Insulin Aspart 300 Units/3 Ml Insuln.Pen) 0 units SUBCUT TID.WM.HS [facility]; Protocol Stop: 01/27/25 22:44 Last Admin: 01/29/24 09:04 Dose: 4 units Isosorbide Dinitrate (Isosorbide Dinitrate 20 Mg Tablet) 20 mg PO BID [facility] Stop: 01/28/25 08:59 Last Admin: 01/29/24 09:03 [...] lower leg: Plan: Patient was admitted to [facility] recently with septic shock from cellulitis. [...] <Electronically signed by Lia Law MD> 01/29/24 1525 [facility] Work Phone: [phone]) 616-638403-12-2024 [facility] Consult note Author Ching Loyola [facility] January 29, 2024 10:05am Note Date/Time January 29, 2024 9:4 5am [facility] [address] [place] [address] Infect. Disease Consult Note Signed Patient: Adwoa Porter MR#: [id number] : 1955 Acct:[id number] Age/Sex: 68 / M Adm Date: 4 Loc: Room: [address] [place] [address] Type: ADM IN Attending Dr: Farhan Hudson DO Copies to: Ching Loyola DO, RES DO Farhan Munoz MD Thomas R Conley, DO~ HPI Data of Consult Consult date: 01/29/24 Requesting Physician: aFrhan Hudson DO Primary Care Provider: Vinnie Stewart DO Consult Narrative Reason for consult: Cellulitis History of present illness: Mr. Porter is a 68 year old male who was recently discharged from [facility] on January 22 to skilled care facility after treatment for septic shock secondary to cellulitis. He was discharged on amikacin and ceftriazone for polymicrobial growth and confirmed bone culture and was placed on a wound VAC. He was sent to the ED at [facility] by the [facility] care facility after he had abnormal [...] Skin/Breast: Reports skin ulcer and Reports wounds [facility] Medical History (Updated 01/08/24 @ 05:35 [...] 12.5 Mg Tablet) 12.5 mg PO BID [facility] Stop: 01/28/25 08:59 Last Admin: 01/29/24 09:03 Dose: 12.5 mg Heparin Sodium (Porcine) (Heparin 5,000 Unit/Ml Vial) 5,000 unit SUBCUT Q8HR [facility] Stop: 01/27/25 21:59 Last Admin: 01/29/24 06:36 Dose: Not Given Hydralazine HCl (Hydralazine 50 Mg Tablet) 50 mg PO TID [facility] Stop: 01/27/25 21:59 Last Admin: 01/29/24 09:03 Dose: 50 mg Ceftriaxone Sodium (Rocephin) 1 gm in 50 mls @ 100 mls/hr IV Q24H [facility] Last Admin: 01/28/24 22:57 Dose: 100 mls/hr Linezolid (Zyvox) 600 mg in 300 mls @ 300 mls/hr IV Q12H [facility] Last Admin: 01/28/24 23:39 Dose: 300 mls/hr Sodium Chloride (0.9% Sodium Chloride 1,000 Ml) 1,000 mls @ 100 mls/hr IV .[id number] Stop: 01/27/25 21:44 Last Admin: 01/28/24 23:37 Dose: 100 mls/hr Insulin Aspart (Insulin Aspart 300 Units/3 Ml Insuln.Pen) 0 units SUBCUT TID.WM.HS [facility]; Protocol Stop: 01/27/25 22:44 Last Admin: 01/29/24 09:04 Dose: 4 units Isosorbide Dinitrate (Isosorbide Dinitrate 20 Mg Tablet) 20 mg PO BID [facility] Stop: 01/28/25 08:59 Last Admin: 01/29/24 09:03 [...] osteomyelitis based on bone culture when at [facility]. It is likely that his acute on chronic kidney injury is stemming from his recent antibiotic use specifically likely the amikacin. Cultures when they were taken were done at [facility] so I do not have these results at this time. I cannot exactly be sure specifically why amikacin was chosen but fingering due to resistance it was one of the few options available. Will reach out to [facility] to get sensitivities faxed up to us. In the meantime he can stay on ceftriaxone and Linezolid. Patient obviously has vascular disease but it is likely that this is not reversible with routine vascular surgery. Dr. Arroyo saw the patient last 2weeks ago according [...] signed by MD Farhan Schofield> 01/29/24 1005 [facility] Work Phone: 1(370) 902-939303-11-2024 History and physical note Author Farhan Hudson [facility] January 28, 2024 9:17pm Note Date/Time January 28, 2024 8:3 0pm [facility] [address] [place] [address] Hospitalist H&P Signed Patient: Adwoa Porter MR#: [id number] : 1955 Acct:[id number] Age/Sex: 68 / M Adm Date: 4 Loc: Room: [address] [place] [address] Type: ADM IN Attending Dr: Farhan Hudson DO Copies to: DO Vinnie Munoz DO~ HPI DATE OF EXAMINATION: 01/28/24 CHIEF COMPLAINT: Abnormal labs HISTORY OF PRESENT ILLNESS: This patient is a 68-year-old male with a history of multiple medical comorbidities including systolic heart failure reported ejection fraction 10 to 15% and CKD stage III. He was recently hospitalized at [facility] and discharged January 22 to a skilled care facility after being treated for septic shock secondary to a cellulitis. He was discharged on IV antibiotic therapy includingamikacin for polymicrobial growth with a wound VAC and PICC line. He was sent to the emergency department today at [facility] for abnormal labs notably worsening kidney function. [...] possibly effusion. He was subsequently transferred to [facility] for nephrology consultation and further workup [...] wound cultures need to be obtained from [facility] and I will consult infectious disease given [...] negative unless noted below or in HPI [facility] Medical History (Updated 01/08/24 @ 05:35 [...] <Electronically signed by Farhan Hudson, > 01/28/24 3356 [facility] Work Phone: 1([phone]) 943-133003-08-2024 NoteCoronary artery disease is stable with out Concerning symptoms Continue GDMT continue risk factor modifications- heart healthy diet, regular exercise as tolerated and continue all medications.[facility] 01-25-2024 NoteNYHC II-III currently he appears euvolemic [...] maintain K+>4 and Mg > 2[facility] 01-25-2024 NoteUTP CARDIOLOGY PROGRESS NOTE HPI: Adwoa Porter is a 68 y.o. male here for hospital F/U- [facility] HPI Pt presents today for hospital f/U after recent admit to [facility]. 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 HYDROcodone-acetaminophen ([place]) 5-325 mg tablet Take 1 tablet by [...] movements intact. Conjunctiva/sclera: Conj (more content not included)...[facility]03-08-2024 NotePatient here for follow up [facility]. Bumex was stopped by Dr. Fournier upon discharge. Denies chest pain, SOB, palpitations lightheadedness/syncope, and bleeding on warfarin. Review of Systems Cardiovascular: Positive for leg swelling. Skin: Positive for poor wound healing. Musculoskeletal: Positive for muscle weakness. All other systems reviewed and are negative.[facility] 12-20-2023 Evaluation note* Encounter Date Diagnosis Assessment Notes Treatment Notes Treatment Clinical Notes Dec, Facet arthritis of lumbar region (ICD-10 - M46.96) [email or web address] Other 01-29-2024 Evaluation note* Encounter Date Diagnosis Assessment Notes Treatment Notes Treatment Clinical Notes Nov, Increased urinary frequency (ICD-10 - R35.0) [email or web address] Other 01-22-2024 Evaluation note* Encounter Date Diagnosis [...] a burger and a few fries from [employer] before he came here. He said that [...] and making changes by Shaw Rondon RN, [facility]. [facility] Other 01-08-2024 History general Narrative - Reported* [...] Medical History [facility] Medical History 04/28/2022 Acute tromper elie resp. failure w/hypoxia, COPD excacerbation [facility] Medical History 04/28/2022-Sepsis sec ./ Para influenza PNA multifocal-[facility] Medical History 05/08/2022-Increasing shortness of breath post recent Dx w/covid-19 Medical History 06/13/2022-Severe sep sis to Multifocal PNA, acute on chronic resp. failure w/hypoxia, acute on systolic chronic HF Medical History [facility]- r ight great toe bleeding (not stopping) Medical History pneumonia-[facility] 06-05 Medical History [facility]-7-2023 Medical History [id number]-[facility] Medical History NON RESPONSIVE X 2 IN THE LAST 6 WEEKS Surgical History Cardiac catherization (07/2010) Surgical History AICD insertion (11/2010) Surgical History right sided heart cath - [facility] 10/2013 Surgical History appendectomy Surgical History rt [...] Hospitalization History rt. heart cath Rex Stout- [facility] 05/11/16 Hospitalization History Water retention/ [facility] 02/2017 Hospitalization History Observation-[facility] 11/2017 Hospitalization History INFECTION IN LEFT SMALL TOE AND FOOT 11/2018 Hospitalization History [facility] -- ICU -- COPD, SMAL L WOUND ON LEFT FOOT 12/2019 Hospitalization History COPD [facility] [place] 12/2019 Hospitalization History Ankle wound 01/2020 Hospitalization History COVID 11/2020 Hospitalization History A-FIB, CHF, KIDNEY ISSUE S 03/2021 [place] [facility] [place] Hospitalization History [facility] discha rged 03-27-2023 Hospitalization History [facility] x2 7-2 023 Hospitalization History [facility] 10-2 023 Hospitalization History [facility] rib fx left Hospitalization History [facility] -pnemo jennifer [email or web address] Other 01-08-2024 NotePatient here for 2 mo follow up CHF, permanent afib, and CAD. He was admitted to [facility] last month for sepsis and pneumonia. He denies chest pain, SOB, and bleeding on warfarin. Doing well s/p hospital admission. Had follow up labs on 11/09/2023. Review of Systems Cardiovascular: Positive for leg swelling (L > R). Musculoskeletal: Positive for muscle weakness. All other systems reviewed and are negative.[facility] 11-26-2023 NoteUTP CARDIOLOGY PROGRESS NOTE HPI: Adwoa Porter is a 68 y.o. male here for HFrEF, CAD, a fib, LV thrombus, severe TV regurg. 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 He was admitted to [facility] last month for sepsis and pneumonia. 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 He was recently admitted to [facility] in August 2023 with acute respiratory [...] breath at rest. He recovered at the detention facility but he is now back home. [...] with lunch, and with evening meal. HYDROcodone-acetaminophen ([place]) 5-325 mg tablet Take 1 tablet by [...] crush or chew. lucy (more content not included)...[facility] 11-26-2023 NoteRemains on warfarin Denied any bleeding tendencies voicedUniversMer[facility] 11-26-2023 NoteMonitor with routine echoUnSelect [facility] [place] 11-26-2023 NoteDevice interrogation q 6 monthsUnSelect [facility] [place]01-08-2024 NoteContinue coreg AICD in placeUnSelect Medical [facility] [place]01-08-2024 NoteRemains on statin [facility]01-08-2024 NoteHypertension is well controlled 113/71 Remains on Coreg, hydralazine, isordil, aldacotonUnSelect [facility] [place]01-08-2024 NoteNYHC IIIc- currently euvolemic without exacerbation Continue GDMT- ASA, lipitor, coreg, farxiga, digoxin, hydralazine, isordil, aldactone Diuretic therapy- bumex and metolazone= f/U with nephrology Monitor daily weights, I&O, fluid restriction 1.5-2L/day, renal function and electrolytes-[facility]01-08-2024 NoteRemains on GDMT [facility]01-08-2024 [id number]= 5- HTN, CHF, CAD, DM remainds on warfarin anticoagulation, DIgoxin and COregUnSelect [facility] [place]01-08-2024 NoteCoronary artery disease is stable Continue GDMT- ASA, lipitor, coreg continue risk factor modifications- heart healthy diet, regular exercise as tolerated and continue all medications.[facility] 11-22-2023 Evaluation note* Encounter Date [...] arthritis of lumbar region (ICD-10 - M46.96) [email or web address] Other 01-03-2024 Evaluation note* Encounter Date Diagnosis Assessment Notes Treatment Notes Treatment Clinical Notes Nov, Facet arthritis of lumbar region (ICD-10 - M46.96) [email or web address] Other 12-28-2023 Evaluation note* Encounter Date Diagnosis [...] continue follow-up with hematology as needed basis. [email or web address] Other 12-26-2023 Evaluation note* Encounter Date Diagnosis [...] (hypertension) (ICD-10 - I10) reasonable today Oct, USP current use of insulin (ICD-10 - Z79.4) Oct, Vitamin B 12 deficiency (ICD-10 - E53.8) Oct, CKD (chronic kidney disease) stage 3, GFR 30-59 ml/min (ICD-10 - N18.3) keep f/u with nephrology Oct, Type 2 diabetes mellitus with diabetic neuropathy, unspecified (ICD-10 - E11.40) Oct, BMI 28.0-28.9,adult (ICD-10 - Z68.28) [email or web address] Other 12-21-2023 History general Narrative - Reported* [...] Medical History [facility] Medical History 04/28/2022 Acute tromper elie resp. failure w/hypoxia, COPD excacerbation [facility] Medical History 04/28/2022-Sepsis sec ./ Para influenza PNA multifocal-[facility] Medical History 05/08/2022-Increasing shortness of breath post recent Dx w/covid-19 Medical History 06/13/2022-Severe sep sis to Multifocal PNA, acute on chronic resp. failure w/hypoxia, acute on systolic chronic HF Medical History [facility]- r ight great toe bleeding (not stopping) Medical History pneumonia-[facility] 06-05 Medical History [facility]-7-2023 Medical History [id number]-[facility] Surgical History Cardiac catherization (07/2010) Surgical History AICD insertion (11/2010) Surgical History right sided heart cath - [place] 10/2013 Surgical History appendectomy Surgical History rt [...] Hospitalization History rt. heart cath Rex Stout- [facility] 05/11/16 Hospitalization History Water retention/ [facility] 02/2017 Hospitalization History Observation-[facility] 11/2017 Hospitalization History INFECTION IN LEFT SMALL TOE AND FOOT 11/2018 Hospitalization History [facility] -- ICU -- COPD, SMAL L WOUND ON LEFT FOOT 12/2019 Hospitalization History COPD [facility] 12/2019 Hospitalization History Ankle wound 01/2020 Hospitalization History COVID 11/2020 Hospitalization History A-FIB, CHF, KIDNEY ISSUE S 03/2021 Hospitalization History [facility] [place] Hospitalization History [facility] discha rged 03-27-2023 Hospitalization History [facility] x2 7-2 023 Hospitalization History [facility] 10-2 023 [email or web address] Other 12-19-2023 History general Narrative - Reported* [...] Medical History [facility] Medical History 04/28/2022 Acute tromper elie resp. failure w/hypoxia, COPD excacerbation [facility] Medical History 04/28/2022-Sepsis sec ./ Para influenza PNA multifocal-[facility] Medical History 05/08/2022-Increasing shortness of breath post recent Dx w/covid-19 Medical History 06/13/2022-Severe sep sis to Multifocal PNA, acute on chronic resp. failure w/hypoxia, acute on systolic chronic HF Medical History [facility]- r ight great toe bleeding (not stopping) Medical History pneumonia-[facility] 06-05 Medical History [facility]-7-2023 Medical History [id number]-[facility] Surgical History Cardiac catherization (07/2010) Surgical [...] Hospitalization History rt. heart cath Rex Stout- [facility] 05/11/16 Hospitalization History Water retention/ [facility] 02/2017 Hospitalization History [facility] 11/2017 Hospitalization History INFECTION IN LEFT SMALL TOE AND FOOT 11/2018 Hospitalization History [facility] -- ICU -- COPD, SMAL L WOUND ON LEFT FOOT 12/2019 Hospitalization History COPD [facility] 12/2019 Hospitalization History Ankle wound 01/2020 Hospitalization History COVID 11/2020 Hospitalization History A-FIB, CHF, KIDNEY ISSUE S 03/2021 Hospitalization History [facility] [place] Hospitalization History [facility] discha rged 03-27-2023 Hospitalization History [facility] x2 7-2 023 Hospitalization History [facility] -2 023 [email or web address] Other 12-08-2023 History general Narrative - Reported* [...] Medical History [facility] Medical History 04/28/2022 Acute tromper elie resp. failure w/hypoxia, COPD excacerbation [facility] Medical History 04/28/2022-Sepsis sec ./ Para influenza PNA multifocal-[facility] Medical History 05/08/2022-Increasing shortness of breath post recent Dx w/covid-19 Medical History 06/13/2022-Severe sep sis to Multifocal PNA, acute on chronic resp. failure w/hypoxia, acute on systolic chronic HF Medical History [facility]- r ight great toe bleeding (not stopping) Medical History pneumonia-[facility] 06-05 Medical History [facility]-7-2023 Medical History [id number]-[facility] Surgical History Cardiac catherization (07/2010) Surgical [...] Hospitalization History rt. heart cath Rex Stout- [facility] 05/11/16 Hospitalization History Water retention/ [facility] 02/2017 Hospitalization History [facility] 11/2017 Hospitalization History INFECTION IN LEFT SMALL TOE AND FOOT 11/2018 Hospitalization History [facility] -- ICU -- COPD, SMAL L WOUND ON LEFT FOOT 12/2019 Hospitalization History COPD [facility] 12/2019 Hospitalization History Ankle wound 01/2020 Hospitalization History COVID 11/2020 Hospitalization History A-FIB, CHF, KIDNEY ISSUE S 03/2021 Hospitalization History [facility] [place] Hospitalization History [facility] discha rged 03-27-2023 Hospitalization History [facility] x2 7-2 023 Hospitalization History [facility] 10-2 023 [email or web address] Other 12-06-2023 History general Narrative - Reported* [...] Medical History [facility] Medical History 04/28/2022 Acute tromper elie resp. failure w/hypoxia, COPD excacerbation [facility] Medical History 04/28/2022-Sepsis sec ./ Para influenza PNA multifocal-[facility] Medical History 05/08/2022-Increasing shortness of breath post recent Dx w/covid-19 Medical History 06/13/2022-Severe sep sis to Multifocal PNA, acute on chronic resp. failure w/hypoxia, acute on systolic chronic HF Medical History [facility]- r ight great toe bleeding (not stopping) Medical History pneumonia-[facility] 06-05 Medical History [facility]-7-2023 Medical History [id number]-[facility] Surgical History Cardiac catherization (07/2010) Surgical History AICD insertion (11/2010) Surgical History right sided heart cath - [place] 10/2013 Surgical History appendectomy Surgical History rt [...] Hospitalization History rt. heart cath Rex Stout- [facility] 05/11/16 Hospitalization History Water retention/ [facility] 02/2017 Hospitalization History [facility] 11/2017 Hospitalization History INFECTION IN LEFT SMALL TOE AND FOOT 11/2018 Hospitalization History [facility] -- ICU -- COPD, SMAL L WOUND ON LEFT FOOT 12/2019 Hospitalization History COPD [facility] 12/2019 Hospitalization History Ankle wound 01/2020 Hospitalization History COVID 11/2020 Hospitalization History A-FIB, CHF, KIDNEY ISSUE S 03/2021 Hospitalization History [facility] [place] Hospitalization History [facility] discha rged 03-27-2023 Hospitalization History [facility] x2 7-2 023 Hospitalization History [facility] 10-2 023 [email or web address] Other 12-04-2023 Evaluation note* Encounter Date Diagnosis Assessment Notes Treatment Notes Treatment Clinical Notes Oct, Type 2 diabetes mellitus with hyperglycemia (ICD-10 - E11.65) [email or web address] Other 12-01-2023 Evaluation note* Encounter Date Diagnosis Assessment Notes Treatment Notes Treatment Clinical Notes Oct, Facet arthritis of lumbar region (ICD-10 - M46.96) [email or web address] Other 12-01-2023 History general Narrative - Reported* [...] Medical History [facility] Medical History 04/28/2022 Acute tromper elie resp. failure w/hypoxia, COPD excacerbation [facility] Medical History 04/28/2022-Sepsis sec ./ Para influenza PNA multifocal-[facility] Medical History 05/08/2022-Increasing shortness of breath post recent Dx w/covid-19 Medical History 06/13/2022-Severe sep sis to Multifocal PNA, acute on chronic resp. failure w/hypoxia, acute on systolic chronic HF Medical History [facility]- r ight great toe bleeding (not stopping) Medical History pneumonia-[facility] 06-05 Medical History [facility]-7-2023 Medical History [id number]-[facility] Surgical History Cardiac catherization (07/2010) Surgical [...] Hospitalization History rt. heart cath Rex Stout- [facility] 05/11/16 Hospitalization History Water retention/ [facility] 02/2017 Hospitalization History [facility] 11/2017 Hospitalization History INFECTION IN LEFT SMALL TOE AND FOOT 11/2018 Hospitalization History [facility] -- ICU -- COPD, SMAL L WOUND ON LEFT FOOT 12/2019 Hospitalization History COPD [facility] 12/2019 Hospitalization History Ankle wound 01/2020 Hospitalization History COVID 11/2020 Hospitalization History A-FIB, CHF, KIDNEY ISSUE S 03/2021 Hospitalization History [facility] [place] Hospitalization History [facility] discha rged 03-27-2023 Hospitalization History [facility] x2 7-2 023 Hospitalization History [facility] 10-2 023 [email or web address] Other 11-20-2023 Evaluation note* Encounter Date Diagnosis [...] spent on education by Lashell KARIMI, RN [email or web address] Other 11-16-2023 Evaluation note* Encounter Date Diagnosis Assessment Notes Treatment Notes Treatment Clinical Notes Sep, Type 2 diabetes mellitus with hyperglycemia (ICD-10 - E11.65) Adwoa came in today for download and Evaluation of his Lucas report after calling and stating earlier this week that his BGs have been high and he is out of [facility] and nearly out of [facility]. He failed to bring his meter [...] able to help patient improve his glycemia. [email or web address] Other 11-07-2023 History general Narrative - Reported* [...] Medical History [facility] Medical History 04/28/2022 Acute tromper elie resp. failure w/hypoxia, COPD excacerbation [facility] Medical History 04/28/2022-Sepsis sec ./ Para influenza PNA multifocal-[facility] Medical History 05/08/2022-Increasing shortness of breath post recent Dx w/covid-19 Medical History 06/13/2022-Severe sep sis to Multifocal PNA, acute on chronic resp. failure w/hypoxia, acute on systolic chronic HF Medical History [facility]- r ight great toe bleeding (not stopping) Medical History pneumonia-[facility] 06-05 Medical History [facility]-7-2023 Medical History [id number]-[facility] Surgical History Cardiac catherization (07/2010) Surgical History AICD insertion (11/2010) Surgical History right sided heart cath - [place] 10/2013 Surgical History appendectomy Surgical History rt [...] hx Hospitalization History rt. heart cath Rex Stotu- [facility] 05/11/16 Hospitalization History Water retention/ [facility] 02/2017 Hospitalization History [facility] 11/2017 Hospitalization History INFECTION IN LEFT SMALL TOE AND FOOT 11/2018 Hospitalization History [facility] -- ICU -- COPD, SMAL L WOUND ON LEFT FOOT 12/2019 Hospitalization History COPD [facility] 12/2019 Hospitalization History Ankle wound 01/2020 Hospitalization History COVID 11/2020 Hospitalization History A-FIB, CHF, KIDNEY ISSUE S 03/2021 Hospitalization History [facility] [place] Hospitalization History [facility] discha rged 03-27-2023 Hospitalization History [facility] x2 7-2 023 Hospitalization History [facility] 10-2 023 [email or web address] Other 11-03-2023 NoteUT Cardiology - [facility] Subjective Adwoa Porter is a 68 y.o. year old male patient being seen for Follow-up and Congestive Heart Failure Patient Active Problem List Diagnosis Anxiety state Atrial fibrillation (CMS/HCC) Chronic obstructive lung disease ([facility]/HCC) Chronic systolic congestive heart failure ([facility]/HCC) Conduction disorder of the heart Atherosclerosis of [place] coronary artery of [place] heart without angina pectoris Type 2 diabetes mellitus with diabetic peripheral angiopathy without gangrene, with long-term current use of insulin ([facility]/HCC) Dyspnea Mixed hyperlipidemia Implantable cardioverter-defibrillator (ICD) in situ Obesity Palpitations Paroxysmal ventricular tachycardia (CMS/HCC) Raised prostate specific antigen Renal function test abnormal Uncontrolled type 2 diabetes mellitus Upper respiratory infection Stage 3b chronic kidney disease ([facility]/HCC) ISAK on CPAP PVD (peripheral vascular disease) ([facility]/HCC) Osteomyelitis of left foot (CMS/HCC) Open [...] of right foot with fat layer exposed ([facility]/HCC) Diabetes mellitus (CMS/HCC) Essential hypertension History of amputation of left great toe (CMS/HCC) History of amputation of lesser toe of left foot (CMS/HCC) USP (current) use of anticoagulants Iron deficiency anemia [...] is significant for coronary artery disease with 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 He was recently admitted to [facility] in August 2023 with acute respiratory [...] breath at rest. He recovered at the detention facility but he is now back home. [...] distension. Palpations: Abdomen is (more content not included)...[facility] Evaluation note* Encounter Date Diagnosis Assessment Notes Treatment Notes Treatment Clinical Notes Sep, Facet arthritis of lumbar region (ICD-10 - M46.96) [email or web address] Other 11-02-2023 History general Narrative - Reported* [...] Medical History [facility] Medical History 04/28/2022 Acute tromper elie resp. failure w/hypoxia, COPD excacerbation [facility] Medical History 04/28/2022-Sepsis sec ./ Para influenza PNA multifocal-[facility] Medical History 05/08/2022-Increasing shortness of breath post recent Dx w/covid-19 Medical History 06/13/2022-Severe sep sis to Multifocal PNA, acute on chronic resp. failure w/hypoxia, acute on systolic chronic HF Medical History [facility]- r ight great toe bleeding (not stopping) Medical History pneumonia-[facility] 06-05 Medical History [facility]-7-2023 Medical History [id number]-[facility] Surgical History Cardiac catherization (07/2010) Surgical [...] Hospitalization History rt. heart cath Rex Stout- [facility] 05/11/16 Hospitalization History Water retention/ [facility] 02/2017 Hospitalization History Observation-[facility] 11/2017 Hospitalization History INFECTION IN LEFT SMALL TOE AND FOOT 11/2018 Hospitalization History [facility] -- ICU -- COPD, SMAL L WOUND ON LEFT FOOT 12/2019 Hospitalization History COPD [facility] 12/2019 Hospitalization History Ankle wound 01/2020 Hospitalization History COVID 11/2020 Hospitalization History A-FIB, CHF, KIDNEY ISSUE S 03/2021 Hospitalization History [facility] [place] Hospitalization History [facility] discha rged 03-27-2023 Hospitalization History [facility] x2 7-2 023 Hospitalization History [facility] 10-2 023 [employer] Other 10-31-2023 Evaluation note* Encounter Date Diagnosis [...] 36 units once daily as extrapolated from [facility], we did discuss reducing by 3 [...] (hypertension) (ICD-10 - I10) reasonable today Aug, 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 failure w/hypoxia, COPD excacerbation [facility] Medical History 04/28/2022-Sepsis sec ./ Para influenza PNA multifocal-[facility] Medical History 05/08/2022-Increasing shortness of breath post recent Dx w/covid-19 Medical History 06/13/2022-Severe sep sis to Multifocal PNA, acute on chronic resp. failure w/hypoxia, acute on systolic chronic HF Medical History [facility]- r ight great toe bleeding (not stopping) Medical History pneumonia-[facility] 06-05 Medical History [facility]-7-2023 Medical History [id number]-[facility] Surgical History Cardiac catherization (07/2010) Surgical History AICD insertion (11/2010) Surgical History right sided heart cath - [place] 10/2013 Surgical History appendectomy Surgical History rt [...] Hospitalization History rt. heart cath Rex Stout- [facility] 05/11/16 Hospitalization History Water retention/ [facility] 02/2017 Hospitalization History Observation-[facility] 11/2017 Hospitalization History INFECTION IN LEFT SMALL TOE AND FOOT 11/2018 Hospitalization History [facility] -- ICU -- COPD, SMAL L WOUND ON LEFT FOOT 12/2019 Hospitalization History COPD [facility] 12/2019 Hospitalization History Ankle wound 01/2020 Hospitalization History COVID 11/2020 Hospitalization History A-FIB, CHF, KIDNEY ISSUE S 03/2021 Hospitalization History [facility] [place] Hospitalization History [facility] discha rged 03-27-2023 Hospitalization History [facility] x2 7-2 023 Hospitalization History [facility] 10-2 023 [facility] [employer] Other 10-30-2023 Evaluation note* Encounter Date Diagnosis Assessment Notes Treatment Notes Treatment Clinical Notes Aug, Facet arthritis of lumbar region (ICD-10 - M46.96) [facility] [employer] Other 10-13-2023 History general Narrative - Reported* [...] Medical History [facility] Medical History 04/28/2022 Acute tromper elie resp. failure w/hypoxia, COPD excacerbation [facility] Medical History 04/28/2022-Sepsis sec ./ Para influenza PNA multifocal-[facility] Medical History 05/08/2022-Increasing shortness of breath post recent Dx w/covid-19 Medical History 06/13/2022-Severe sep sis to Multifocal PNA, acute on chronic resp. failure w/hypoxia, acute on systolic chronic HF Medical History [facility]- r ight great toe bleeding (not stopping) Medical History pneumonia-[facility] 06-05 Medical History [facility]-7-2023 Surgical History Cardiac catherization (07/2010) Surgical History [...] Hospitalization History rt. heart cath Rex Stout- [facility] 05/11/16 Hospitalization History Water retention/ [facility] 02/2017 Hospitalization History [facility] 11/2017 Hospitalization History INFECTION IN LEFT SMALL TOE AND FOOT 11/2018 Hospitalization History [facility] -- ICU -- COPD, SMAL L WOUND ON LEFT FOOT 12/2019 Hospitalization History COPD [facility] 12/2019 Hospitalization History Ankle wound 01/2020 Hospitalization History COVID 11/2020 Hospitalization History A-FIB, CHF, KIDNEY ISSUE S 03/2021 Hospitalization History [facility] [place]23 Hospitalization History [facility] discha rged 03-27-2023 Hospitalization History [facility] x2 7-2 023 [email or web address] Other 10-12-2023 History general Narrative - Reported* [...] Medical History [facility] Medical History 04/28/2022 Acute tromper elie resp. failure w/hypoxia, COPD excacerbation [facility] Medical History 04/28/2022-Sepsis sec ./ Para influenza PNA multifocal-[facility] Medical History 05/08/2022-Increasing shortness of breath post recent Dx w/covid-19 Medical History 06/13/2022-Severe sep sis to Multifocal PNA, acute on chronic resp. failure w/hypoxia, acute on systolic chronic HF Medical History [facility]- r ight great toe bleeding (not stopping) Medical History pneumonia-[facility] 06-05 Medical History [facility]-7-2023 Surgical History Cardiac catherization (07/2010) Surgical History [...] Hospitalization History rt. heart cath eRx Stout- [facility] 05/11/16 Hospitalization History Water retention/ [facility] 02/2017 Hospitalization History Observation-[facility] 11/2017 Hospitalization History INFECTION IN LEFT SMALL TOE AND FOOT 11/2018 Hospitalization History [facility] -- ICU -- COPD, SMAL L WOUND ON LEFT FOOT 12/2019 Hospitalization History COPD [facility] 12/2019 Hospitalization History Ankle wound 01/2020 Hospitalization History COVID 11/2020 Hospitalization History A-FIB, CHF, KIDNEY ISSUE S 03/2021 Hospitalization History FR 01/2023 Hospitalization History [facility] discha rged 03-27-2023 Hospitalization History [facility] x2 7-2 023 [email or web address] Other 10-05-[facility] NotePatient here for follow up TB [...] weakness. All other systems reviewed and are negative.[facility] 08-23-2023 NoteCardiovascular Medicine [facility] SUBJECTIVE Chief Complaint Patient presents with [facility] Follow-up Adwoa Porter is a 68 y.o. male here for follow-up. Congestive Heart Failure His past medical history is significant for CAD. Coronary Artery Disease His past medical history is significant for CHF. Adwoa Porter is a 67 y.o. 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 Patient here for follow up [facility] discharge yesterday for HFrEF. His girlfriend called the office yesterday when he was being discharged to make us aware that he's still very swollen and SOB. He is down 12# from his office visit last week with Cecile Watson. Patient is c/o wheezing and is requesting something for cough. 08/23/2023 He was recently admitted to [facility] for acute on chronic HFrEF exacerbation [...] Conduction disorder of the heart Atherosclerosis of [place] coronary artery of [place] heart without angina pectoris Type 2 diabetes [...] Abdominal tenderness Acute on chronic respiratory failure ([facility]/HCC) Benign prostatic hyperplasia with urinary obstruction [...] with fat layer exposed (CMS/HCC) Diabetes mellitus ([facility]/HCC) Essential hypertension History of amputation of left great toe ([facility]/HCC) History of amputation of lesser toe of left foot ([facility]/HCC) USP (current) use of anticoagulants Iron deficiency anemia Hyperglycemia due to type 2 diabetes mellitus ([facility]/HCC) Past Medical History: Diagnosis Date Anxiety Atrial fibrillation (CMS/HCC) Cardiomyopathy (CMS/HCC) CHF (congestive heart failure) (CMS/HCC) Chronic kidney disease COPD (chronic obstructive pulmonary disease) (CMS/HCC) Coronary artery disease Diabetes mellitus ([facility]/HCC) High cholesterol Hyperlipidemia Hypertension Family History [...] (5' 9 ) Wt (more content not included)...[facility]10-05-2023 Evaluation note* Encounter Date Diagnosis Assessment Notes Treatment Notes Treatment Clinical Notes Aug, Facet arthritis of lumbar region (ICD-10 - M46.96) [email or web address] Other 09-27-2023 NoteCurrently stable*[facility]09-27-2023 NoteSending for labs today and pt to f/U with Dr Orr as scheduledUnSelect [facility] [place]09-27-2023 NoteNYHC- III Continue GDMT- ASA, lipitor, coreg, [...] BNP F/U with nephrology as scheduledUnSelect [facility] [place]09-27-2023 NoteContinue Coreg- currently stable and no concerning symptomsUnSelect [facility] [place]09-27-2023 NoteUTP CARDIOLOGY PROGRESS NOTE HPI: Adwoa Porter [...] to afford Farxiga. He was admitted to [facility] last week for hemoptysis. This has [...] reviewed and are negative. Recent eval in [facility] ED 07/31/23 Visit Vitals BP 121/79 [...] with lunch, and with evening meal. HYDROcodone-acetaminophen ([place]) 5-325 mg tablet Take 1 tablet by [...] Pulmonary: Effort: Pulmonary effo (more content not included)...[facility]09-27-2023 NotePatient here for follow up lasix increase. Dr. Stout increased it to 140mg bid a few days ago. He has taken 3 doses of this so far and feels so much better. He is unable to afford Farxiga. He was admitted to [facility] last week for hemoptysis. This has [...] weakness. All other systems reviewed and are negative.[facility] 08-03-2023 History general Narrative - [...] Medical History [facility] Medical History 04/28/2022 Acute tromper elie resp. failure w/hypoxia, COPD excacerbation [facility] Medical History 04/28/2022-Sepsis sec ./ Para influenza PNA multifocal-[facility] Medical History 05/08/2022-Increasing shortness of breath post recent Dx w/covid-19 Medical History 06/13/2022-Severe sep sis to Multifocal PNA, acute on chronic resp. failure w/hypoxia, acute on systolic chronic HF Medical History [facility]- r ight great toe bleeding (not stopping) Medical History pneumonia-[facility] 06-05 Medical History [facility]-7-2023 Surgical History Cardiac catherization (07/2010) Surgical History [...] Hospitalization History rt. heart cath Rex Stout- [facility] 05/11/16 Hospitalization History Water retention/ [facility] 02/2017 Hospitalization History Observation-[facility] 11/2017 Hospitalization History INFECTION IN LEFT SMALL TOE AND FOOT 11/2018 Hospitalization History [facility] -- ICU -- COPD, SMAL L WOUND ON LEFT FOOT 12/2019 Hospitalization History COPD [facility] 12/2019 Hospitalization History Ankle wound 01/2020 Hospitalization History COVID 11/2020 Hospitalization History A-FIB, CHF, KIDNEY ISSUE S 03/2021 Hospitalization History [facility] [place]23 Hospitalization History [facility] discha rged 03-27-2023 Hospitalization History [facility] x2 7-2 023 [email or web address] Other 09-08-2023 Evaluation note* Encounter Date Diagnosis Assessment Notes Treatment Notes Treatment Clinical Notes Jul, Acute cough (ICD-10 - R05.1) [email or web address] Other 09-08-2023 History general Narrative - Reported* [...] Medical History [facility] Medical History 04/28/2022 Acute tromper elie resp. failure w/hypoxia, COPD excacerbation [facility] Medical History 04/28/2022-Sepsis sec ./ Para influenza PNA multifocal-[facility] Medical History 05/08/2022-Increasing shortness of breath post recent Dx w/covid-19 Medical History 06/13/2022-Severe sep sis to Multifocal PNA, acute on chronic resp. failure w/hypoxia, acute on systolic chronic HF Medical History [facility]- r ight great toe bleeding (not stopping) Medical History pneumonia-[facility] 06-05 Medical History [facility]-7-2023 Surgical History Cardiac catherization (07/2010) Surgical History [...] Hospitalization History rt. heart cath Rex Stout- [facility] 05/11/16 Hospitalization History Water retention/ [facility] 02/2017 Hospitalization History [facility]ation-[facility] 11/2017 Hospitalization History INFECTION IN LEFT SMALL TOE AND FOOT 11/2018 Hospitalization History [facility] -- ICU -- COPD, SMAL L WOUND ON LEFT FOOT 12/2019 Hospitalization History COPD [facility] 12/2019 Hospitalization History Ankle wound 01/2020 Hospitalization History COVID 11/2020 Hospitalization History A-FIB, CHF, KIDNEY ISSUE S 03/2021 Hospitalization History [facility] 01/2023 Hospitalization History [facility] discha rged 03-27-2023 Hospitalization History [facility] x2 7-2 023 [email or web address] Other 09-01-2023 Evaluation note* Encounter Date Diagnosis Assessment Notes Treatment Notes Treatment Clinical Notes Jul, Facet arthritis of lumbar region (ICD-10 - M46.96) [email or web address] Other 09-01-2023 History general Narrative - Reported* [...] Medical History [facility] Medical History 04/28/2022 Acute tromper elie resp. failure w/hypoxia, COPD excacerbation [facility] Medical History 04/28/2022-Sepsis sec ./ Para influenza PNA multifocal-[facility] Medical History 05/08/2022-Increasing shortness of breath post recent Dx w/covid-19 Medical History 06/13/2022-Severe sep sis to Multifocal PNA, acute on chronic resp. failure w/hypoxia, acute on systolic chronic HF Medical History [facility]- r ight great toe bleeding (not stopping) Medical History pneumonia-[facility] 06-05 Medical History [facility]-7-2023 Surgical History Cardiac catherization (07/2010) Surgical History [...] Hospitalization History rt. heart cath Rex Stout- [facility] 05/11/16 Hospitalization History Water retention/ [facility] 02/2017 Hospitalization History Observation-[facility] 11/2017 Hospitalization History INFECTION IN LEFT SMALL TOE AND FOOT 11/2018 Hospitalization History [facility] -- ICU -- COPD, SMAL L WOUND ON LEFT FOOT 12/2019 Hospitalization History COPD [facility] 12/2019 Hospitalization History Ankle wound 01/2020 Hospitalization History COVID 11/2020 Hospitalization History A-FIB, CHF, KIDNEY ISSUE S 03/2021 Hospitalization History [facility] 01/2023 Hospitalization History [facility] discha rged 03-27-2023 Hospitalization History [facility] x2 7-2 023 [email or web address] Other 08-31-2023 Evaluation note* Encounter Date Diagnosis Assessment Notes Treatment Notes Treatment Clinical Notes Jun, Chronic systolic congestive heart failure (ICD-10 - I50.22) [email or web address] Other 08-24-2023 History general Narrative - Reported* [...] Medical History [facility] Medical History 04/28/2022 Acute tromper elie resp. failure w/hypoxia, COPD excacerbation [facility] Medical History 04/28/2022-Sepsis sec ./ Para influenza PNA multifocal-[facility] Medical History 05/08/2022-Increasing shortness of breath post recent Dx w/covid-19 Medical History 06/13/2022-Severe sep sis to Multifocal PNA, acute on chronic resp. failure w/hypoxia, acute on systolic chronic HF Medical History [facility]- r ight great toe bleeding (not stopping) Medical History pneumonia-[facility] 06-05 Medical History [facility]-7-2023 Surgical History Cardiac catherization (07/2010) Surgical History AICD insertion (11/2010) Surgical History right sided heart cath - [place] 10/2013 Surgical History appendectomy Surgical History rt heart cath 05/11/16 Surgical History pacemaker 07/2016 Surgical History SKIN GRAFT-FROM LEFT LEG TO LEF T FOOT 10/2018 Surgical History LEFT SMALL TOE AMPUTATION WITH SOME FOOT BONE 11/2018 Surgical History COLONOSCOPY AND EGD [facility] Surgical History amputation left fifth toe Surgical History Ankle I/D LEFT 01/2020 Surgical History Left heel skin graft 03/29/2020 Surgical History SKIN GRAFT TO LEFT FOOT 03/2020 Surgical History CATARACT REMOVED ON RIGHT EYE Surgical History CATARACT REMOVED FROM LEFT EYE 06/2021 Hospitalization History see surgical hx Hospitalization History rt. heart cath Rex Stout- [facility] 05/11/16 Hospitalization History Water retention/ [facility] 02/2017 Hospitalization History Observation-[facility] 11/2017 Hospitalization History INFECTION IN LEFT SMALL TOE AND FOOT 11/2018 Hospitalization History [facility] -- ICU -- COPD, SMAL L WOUND ON LEFT FOOT 12/2019 Hospitalization History COPD [facility] 12/2019 Hospitalization History Ankle wound 01/2020 Hospitalization History COVID 11/2020 Hospitalization History A-FIB, CHF, KIDNEY ISSUE S 03/2021 Hospitalization History [facility] 01/2023 Hospitalization History [facility] discha rged 03-27-2023 Hospitalization History [facility] x2 7-2 023 [email or web address] Other 08-11-2023 Evaluation note* Encounter Date Diagnosis [...] of this is related to diabetic neuropathy [email or web address] Other 08-11-2023 Evaluation note* Encounter Date Diagnosis [...] (hypertension) (ICD-10 - I10) reasonable today 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 failure w/hypoxia, COPD excacerbation [facility] Medical History 04/28/2022-Sepsis sec ./ Para influenza PNA multifocal-[facility] Medical History 05/08/2022-Increasing shortness of breath post recent Dx w/covid-19 Medical History 06/13/2022-Severe sep sis to Multifocal PNA, acute on chronic resp. failure w/hypoxia, acute on systolic chronic HF Medical History [facility]- r ight great toe bleeding (not stopping) Medical History pneumonia-[facility] - Medical History [facility]-7-2023 Surgical History Cardiac catherization (07/2010) Surgical History AICD insertion (11/2010) Surgical History right sided heart cath - [place] 10/2013 Surgical History appendectomy Surgical History rt [...] Hospitalization History rt. heart cath Rex Stout- [facility] 05/11/16 Hospitalization History Water retention/ [facility] 02/2017 Hospitalization History [facility]ation-[facility] 11/2017 Hospitalization History INFECTION IN LEFT SMALL TOE AND FOOT 11/2018 Hospitalization History [facility] -- ICU -- COPD, SMAL L WOUND ON LEFT FOOT 12/2019 Hospitalization History COPD [facility] 12/2019 Hospitalization History Ankle wound 01/2020 Hospitalization History COVID 11/2020 Hospitalization History A-FIB, CHF, KIDNEY ISSUE S 03/2021 Hospitalization History [facility] 01/2023 Hospitalization History [facility] discha rged 03-27-2023 Hospitalization History [facility] x2 7-2 023 [email or web address] Other 07-31-2023 Evaluation note* Encounter Date Diagnosis [...] not be able to stay at home [email or web address] Other 07-31-2023 History general Narrative - Reported* [...] Medical History [facility] Medical History 04/28/2022 Acute tromper elie resp. failure w/hypoxia, COPD excacerbation [facility] Medical History 04/28/2022-Sepsis sec ./ Para influenza PNA multifocal-[facility] Medical History 05/08/2022-Increasing shortness of breath post recent Dx w/covid-19 Medical History 06/13/2022-Severe sep sis to Multifocal PNA, acute on chronic resp. failure w/hypoxia, acute on systolic chronic HF Medical History [facility]- r ight great toe bleeding (not [...] Hospitalization History rt. heart cath Rex Stout- [facility] 05/11/16 Hospitalization History Water retention/ [facility] 02/2017 Hospitalization History [facility] 11/2017 Hospitalization History INFECTION IN LEFT SMALL TOE AND FOOT 11/2018 Hospitalization History [facility] -- ICU -- COPD, SMAL L WOUND ON LEFT FOOT 12/2019 Hospitalization History COPD [facility] 12/2019 Hospitalization History Ankle wound 01/2020 Hospitalization History COVID 11/2020 Hospitalization History A-FIB, CHF, KIDNEY ISSUE S 03/2021 Hospitalization History [facility] 01/2023 Hospitalization History [facility] discha rged 03-27-2023 [email or web address] Other 07-18-2023 NoteUT Cardiology - [facility] Subjective Adwoa Porter is a 67 y.o. year old male patient being seen for Follow-up Patient Active Problem List Diagnosis Anxiety state Atrial fibrillation (CMS/HCC) Chronic obstructive lung disease (CMS/HCC) Chronic systolic congestive heart failure (CMS/HCC) Conduction disorder of the heart Atherosclerosis of [place] coronary artery of [place] heart without angina pectoris Type 2 diabetes [...] in follow-up after recent admission to the [facility] with decompensated heart failure. 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 Last [...] Pulmonary: Effort: Pulmonary e (more content not included)...[facility]06-30-2023 Evaluation note* Encounter Date Diagnosis Assessment Notes Treatment Notes Treatment Clinical Notes Apr, Facet arthritis of lumbar region (ICD-10 - M46.96) [email or web address] Other 06-30-2023 History general Narrative - Reported* [...] Medical History [facility] Medical History 04/28/2022 Acute tromper elie resp. failure w/hypoxia, COPD excacerbation [facility] Medical History 04/28/2022-Sepsis sec ./ Para influenza PNA multifocal-[facility] Medical History 05/08/2022-Increasing shortness of breath post recent Dx w/covid-19 Medical History 06/13/2022-Severe sep sis to Multifocal PNA, acute on chronic resp. failure w/hypoxia, acute on systolic chronic HF Medical History [facility]- r ight great toe bleeding (not [...] hx [facility] 02/2017 Hospitalization History [facility] 11/2017 Hospitalization History INFECTION IN LEFT SMALL TOE AND FOOT 11/2018 Hospitalization History [facility] -- ICU -- COPD, SMAL L WOUND ON LEFT FOOT 12/2019 Hospitalization History COPD [facility] 12/2019 Hospitalization History Ankle wound 01/2020 Hospitalization History COVID 11/2020 Hospitalization History A-FIB, CHF, KIDNEY ISSUE S 03/2021 Hospitalization History [facility] 01/2023 Hospitalization History [facility] discha rged 03-27-2023 [email or web address] Other 2023 History general Narrative - Reported* [...] Medical History [facility] Medical History 04/28/2022 Acute tromper elie resp. failure w/hypoxia, COPD excacerbation [facility] Medical History 04/28/2022-Sepsis sec ./ Para influenza PNA multifocal-[facility] Medical History 05/08/2022-Increasing shortness of breath post recent Dx w/covid-19 Medical History 06/13/2022-Severe sep sis to Multifocal PNA, acute on chronic resp. failure w/hypoxia, acute on systolic chronic HF Medical History [facility]- r ight great toe bleeding (not stopping) Surgical History Cardiac catherization (07/2010) Surgical History AICD insertion (11/2010) Surgical History right sided heart cath - [place] 10/2013 Surgical History appendectomy Surgical History rt heart cath 05/11/16 Surgical History pacemaker 07/2016 Surgical History SKIN GRAFT-FROM LEFT LEG TO LEF T FOOT 10/2018 Surgical History LEFT SMALL TOE AMPUTATION WITH SOME FOOT BONE 11/2018 Surgical History COLONOSCOPY AND EGD [facility] Surgical History amputation left fifth toe Surgical History Ankle I/D LEFT 01/2020 Surgical History Left heel skin graft 03/29/2020 Surgical History SKIN GRAFT TO LEFT FOOT 03/2020 Surgical History CATARACT REMOVED ON RIGHT EYE Surgical History CATARACT REMOVED FROM LEFT EYE 06/2021 Hospitalization History see surgical hx Hospitalization History rt. heart cath Rex Stout- [facility] 05/11/16 Hospitalization History Water retention/ [facility] 02/2017 Hospitalization History [facility] 11/2017 Hospitalization History INFECTION IN LEFT SMALL TOE AND FOOT 11/2018 Hospitalization History [facility] -- ICU -- COPD, SMAL L WOUND ON LEFT FOOT 12/2019 Hospitalization History COPD [facility] 12/2019 Hospitalization History Ankle wound 01/2020 Hospitalization History COVID 11/2020 Hospitalization History A-FIB, CHF, KIDNEY ISSUE S 03/2021 Hospitalization History [facility] 01/2023 Hospitalization History [facility] discha rged 03-27-2023 [email or web address] Other 06-14-2023 Evaluation note* Encounter Date Diagnosis [...] sensors on. He was given 6 grif oxygen system tester to assist him with wearing the device. 45 minutes were spent evaluating the patient's report and discussing its findings with the patient by Shaw Rondon RN, [facility]. [employer] Other 06-01-2023 Evaluation note* Encounter Date Diagnosis [...] leukocytosis and currently follows with a hematology. [email or web address] Other 06-01-2023 Evaluation note* Encounter Date Diagnosis [...] understanding and is agreeable with treatment plan. [email or web address] Other 05-31-2023 Evaluation note* Encounter Date Diagnosis Assessment Notes Treatment Notes Treatment Clinical Notes March, Facet arthritis of lumbar region (ICD-10 - M46.96) [email or web address] Other 05-15-2023 History general Narrative - Reported* [...] Medical History [facility] Medical History 04/28/2022 Acute tromper elie resp. failure w/hypoxia, COPD excacerbation [facility] Medical History 04/28/2022-Sepsis sec ./ Para influenza PNA multifocal-[facility] Medical History 05/08/2022-Increasing shortness of breath post recent Dx w/covid-19 Medical History 06/13/2022-Severe sep sis to Multifocal PNA, acute on chronic resp. failure w/hypoxia, acute on systolic chronic HF Surgical History Cardiac catherization (07/2010) Surgical History AICD insertion (11/2010) Surgical History right sided heart cath - [place] 10/2013 Surgical History appendectomy Surgical History rt [...] Hospitalization History rt. heart cath Rex Stout- [facility] 05/11/16 Hospitalization History Water retention/ [facility] 02/2017 Hospitalization History [facility] 11/2017 Hospitalization History INFECTION IN LEFT SMALL TOE AND FOOT 11/2018 Hospitalization History [facility] -- ICU -- COPD, SMAL L WOUND ON LEFT FOOT 12/2019 Hospitalization History COPD [facility] 12/2019 Hospitalization History Ankle wound 01/2020 Hospitalization History COVID 11/2020 Hospitalization History A-FIB, CHF, KIDNEY ISSUE S 03/2021 Hospitalization History [facility] 01/2023 [email or web address] Other 05-03-2023 NoteCardiology Clinic Note Subjective Adwoa [...] Conduction disorder of the heart Atherosclerosis of [place] coronary artery of [place] heart without angina pectoris Type 2 diabetes [...] in follow-up after recent admission to the [facility] with decompensated heart failure. 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 All other systems reviewed and are negative.[facility] 03-21-2023 Evaluation note* Encounter Date [...] and see if this helps his mobility [email or web address] Other 05-03-2023 History general Narrative - Reported* [...] Medical History VERTIGO Medical History 04/28/2022 Acute tromper elie resp. failure w/hypoxia, COPD excacerbation [facility] Medical History 04/28/2022-Sepsis sec ./ Para influenza PNA multifocal-[facility] Medical History 05/08/2022-Increasing shortness of breath [...] Hospitalization History rt. heart cath Rex Stout- [facility] 05/11/16 Hospitalization History Water retention/ [facility] 02/2017 Hospitalization History [facility] 11/2017 Hospitalization History INFECTION IN LEFT SMALL TOE AND FOOT 11/2018 Hospitalization History [facility] -- ICU -- COPD, SMAL L WOUND ON LEFT FOOT 12/2019 Hospitalization History COPD [facility] 12/2019 Hospitalization History Ankle wound 01/2020 Hospitalization History COVID 11/2020 Hospitalization History A-FIB, CHF, KIDNEY ISSUE S 03/2021 Hospitalization [place] [facility] [place] [email or web address] Other 05-01-2023 Evaluation note* Encounter Date Diagnosis Assessment Notes Treatment Notes Treatment Clinical Notes March, Facet arthritis of lumbar region (ICD-10 - M46.96) [email or web address] Other 05-01-2023 History general Narrative - Reported* [...] Medical History VERTIGO Medical History 04/28/2022 Acute tromper elie resp. failure w/hypoxia, COPD excacerbation [facility] Medical History 04/28/2022-Sepsis sec ./ Para influenza PNA multifocal-[facility] Medical History 05/08/2022-Increasing shortness of breath [...] Hospitalization History rt. heart cath Rex Stout- [facility] 05/11/16 Hospitalization History Water retention/ [facility] 02/2017 Hospitalization History [facility] 11/2017 Hospitalization History INFECTION IN LEFT SMALL TOE AND FOOT 11/2018 Hospitalization History [facility] -- ICU -- COPD, SMAL L WOUND ON LEFT FOOT 12/2019 Hospitalization History COPD [facility] 12/2019 Hospitalization History Ankle wound 01/2020 Hospitalization History COVID 11/2020 Hospitalization History A-FIB, CHF, KIDNEY ISSUE S 03/2021 Hospitalization History [facility] [place]/2023 [email or web address] Other 04-12-2023 History general Narrative - Reported* [...] Medical History VERTIGO Medical History 04/28/2022 Acute tromper elie resp. failure w/hypoxia, COPD excacerbation [facility] Medical History 04/28/2022-Sepsis sec ./ Para influenza PNA multifocal-[facility] Medical History 05/08/2022-Increasing shortness of breath [...] Hospitalization History rt. heart cath Rex Stout- [facility] 05/11/16 Hospitalization History Water retention/ [facility] 02/2017 Hospitalization History [facility] 11/2017 Hospitalization History INFECTION IN LEFT SMALL TOE AND FOOT 11/2018 Hospitalization History [facility] -- ICU -- COPD, SMAL L WOUND ON LEFT FOOT 12/2019 Hospitalization History COPD [facility] 12/2019 Hospitalization History Ankle wound 01/2020 Hospitalization History COVID 11/2020 Hospitalization History A-FIB, CHF, KIDNEY ISSUE S 03/2021 Hospitalization History [facility] [place]/2023 [email or web address] Other 04-11-2023 History general Narrative - Reported* [...] Medical History VERTIGO Medical History 04/28/2022 Acute tromper elie resp. failure w/hypoxia, COPD excacerbation [facility] Medical History 04/28/2022-Sepsis sec ./ Para influenza PNA multifocal-[facility] Medical History 05/08/2022-Increasing shortness of breath [...] Hospitalization History rt. heart cath Rex Stout- [facility] 05/11/16 Hospitalization History Water retention/ [facility] 02/2017 Hospitalization History [facility] 11/2017 Hospitalization History INFECTION IN LEFT SMALL TOE AND FOOT 11/2018 Hospitalization History [facility] -- ICU -- COPD, SMAL L WOUND ON LEFT FOOT 12/2019 Hospitalization History COPD [facility] 12/2019 Hospitalization History Ankle wound 01/2020 Hospitalization History COVID 11/2020 Hospitalization History A-FIB, CHF, KIDNEY ISSUE S 03/2021 Hospitalization History [facility] [place]/2023 [email or web address] Other 04-05-2023 Evaluation note* Encounter Date Diagnosis [...] - N18.30) Feb, Hypokalemia (ICD-10 - E87.6) [email or web address] Other 03-24-2023 Evaluation note* Encounter Date Diagnosis [...] failure so a printed prescription was provided [email or web address] Other 03-13-2023 [facility] - [facility] Subjective Adwoa Porter is a 67 y.o. year old male patient being seen for follow up [facility] for CHF. He is down 30# since last office visit on 01/05/2023. He is feeling much better since discharge. He is now taking metolazone once a week. Bumex was switched to furosemide. Patient Active Problem List Diagnosis Anxiety state Atrial fibrillation (CMS/HCC) Chronic obstructive lung disease (CMS/HCC) Chronic systolic congestive heart failure (CMS/HCC) Conduction disorder of the heart Atherosclerosis of [place] coronary artery of [place] heart without angina pectoris Type 2 diabetes [...] in follow-up after recent admission to the [facility] with decompensated heart failure. 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 failure w/hypoxia, COPD excacerbation [facility] Medical History 04/28/2022-Sepsis sec ./ Para influenza PNA multifocal-[facility] Medical History 05/08/2022-Increasing shortness of breath [...] Hospitalization History rt. heart cath Rex Stout- [facility] 05/11/16 Hospitalization History Water retention/ [facility] 02/2017 Hospitalization History [facility] 11/2017 Hospitalization History INFECTION IN LEFT SMALL TOE AND FOOT 11/2018 Hospitalization History [facility] -- ICU -- COPD, SMAL L WOUND ON LEFT FOOT 12/2019 Hospitalization History COPD [facility] 12/2019 Hospitalization History Ankle wound 01/2020 Hospitalization History COVID 11/2020 Hospitalization History A-FIB, CHF, KIDNEY ISSUE S 03/2021 [email or web address] Other 02-23-2023 History general Narrative - Reported* [...] Medical History VERTIGO Medical History 04/28/2022 Acute tromper elie resp. failure w/hypoxia, COPD excacerbation [facility] Medical History 04/28/2022-Sepsis sec ./ Para influenza PNA multifocal-[facility] Medical History 05/08/2022-Increasing shortness of breath [...] Hospitalization History rt. heart cath Rex Stout- [facility] 05/11/16 Hospitalization History Water retention/ [facility] 02/2017 Hospitalization History [facility] 11/2017 Hospitalization History INFECTION IN LEFT SMALL TOE AND FOOT 11/2018 Hospitalization History [facility] -- ICU -- COPD, SMAL L WOUND ON LEFT FOOT 12/2019 Hospitalization History COPD [facility] 12/2019 Hospitalization History Ankle wound 01/2020 Hospitalization History COVID 11/2020 Hospitalization History A-FIB, CHF, KIDNEY ISSUE S 03/2021 [email or web address] Other 02-18-2023 History general Narrative - Reported* [...] Medical History VERTIGO Medical History 04/28/2022 Acute tromper elie resp. failure w/hypoxia, COPD excacerbation [facility] Medical History 04/28/2022-Sepsis sec ./ Para influenza PNA multifocal-[facility] Medical History 05/08/2022-Increasing shortness of breath [...] BONE 11/2018 Surgical History COLONOSCOPY AND EGD [facility] Surgical History amputation left fifth toe Surgical History Ankle I/D LEFT 01/2020 Surgical History Left heel skin graft 03/29/2020 Surgical History SKIN GRAFT TO LEFT FOOT 03/2020 Surgical History CATARACT REMOVED ON RIGHT EYE Surgical History CATARACT REMOVED FROM LEFT EYE 06/2021 Hospitalization History see surgical hx Hospitalization History rt. heart cath Rex Stout- [facility] 05/11/16 Hospitalization History Water retention/ [facility] 02/2017 Hospitalization History [facility] 11/2017 Hospitalization History INFECTION IN LEFT SMALL TOE AND FOOT 11/2018 Hospitalization History [facility] -- ICU -- COPD, SMAL L WOUND ON LEFT FOOT 12/2019 Hospitalization History COPD [facility] 12/2019 Hospitalization History Ankle wound 01/2020 Hospitalization History COVID 11/2020 Hospitalization History A-FIB, CHF, KIDNEY ISSUE S 03/2021 [email or web address] Other 02-13-2023 History general Narrative - Reported* [...] Medical History VERTIGO Medical History 04/28/2022 Acute tromper elie resp. failure w/hypoxia, COPD excacerbation [facility] Medical History 04/28/2022-Sepsis sec ./ Para influenza PNA multifocal-[facility] Medical History 05/08/2022-Increasing shortness of breath [...] Hospitalization History rt. heart cath Rex Stout- [facility] 05/11/16 Hospitalization History Water retention/ [facility] 02/2017 Hospitalization History [facility] 11/2017 Hospitalization History INFECTION IN LEFT SMALL TOE AND FOOT 11/2018 Hospitalization History [facility] -- ICU -- COPD, SMAL L WOUND ON LEFT FOOT 12/2019 Hospitalization History COPD [facility] 12/2019 Hospitalization History Ankle wound 01/2020 Hospitalization History COVID 11/2020 Hospitalization History A-FIB, CHF, KIDNEY ISSUE S 03/2021 [email or web address] Other 02-12-2023 History general Narrative - Reported* [...] Medical History VERTIGO Medical History 04/28/2022 Acute tromper elie resp. failure w/hypoxia, COPD excacerbation [facility] Medical History 04/28/2022-Sepsis sec ./ Para influenza PNA multifocal-[facility] Medical History 05/08/2022-Increasing shortness of breath post recent Dx w/covid-19 Medical History 06/13/2022-Severe sep sis to Multifocal PNA, acute on chronic resp. failure w/hypoxia, acute on systolic chronic HF Surgical History Cardiac catherization (07/2010) Surgical History AICD insertion (11/2010) Surgical History right sided heart cath - [place] 10/2013 Surgical History appendectomy Surgical History rt [...] Hospitalization History rt. heart cath Rex Stout- [facility] 05/11/16 Hospitalization History Water retention/ [facility] 02/2017 Hospitalization History [facility] 11/2017 Hospitalization History INFECTION IN LEFT SMALL TOE AND FOOT 11/2018 Hospitalization History [facility] -- ICU -- COPD, SMAL L WOUND ON LEFT FOOT 12/2019 Hospitalization History COPD [facility] 12/2019 Hospitalization History Ankle wound 01/2020 Hospitalization History COVID 11/2020 Hospitalization History A-FIB, CHF, KIDNEY ISSUE S 03/2021 [email or web address] Other 01-24-2023 Evaluation note* Encounter Date Diagnosis [...] findings with him by Shaw Rondon RN, [facility]. [email or web address] Other 01-23-2023 Reason for referral (narrative)* Reason 12/11/22 @ Irvin gonzalez to john per patient request Diagnosis 1 COPD (chronic obstru ctive pulmonary disease) (J44.9) Diagnosis 2 Athscl heart disease of [place] coronary artery w/o ang pctrs (I25.10) Diagnosis 3 Unspecified systolic (congestive) heart failure (I50.20) Referral Organization [facility] Family Mara Hodges Referring Provider First Name Vinnie Referring Provider Last Name Osvaldo Referring Provider Specialty Family Prac yamil Referred Organization [facility] Referred Address [address] [place],[address] Referred Provider Specialty Hospice and Palliative Medicine Referral Priority Routine Referral Appointment Date 2022-12-11 General Notes Doris Modi 09:13:40 AM >referral received and faxed. appt scheduled for 11:00am today. Doris Modi 12/13/2022 12:20:16 PM >faxed letter to obtain consult note Doris Modi 12/14/2022 07:21:24 AM >received VM from marilu olpez, she stated they saw pt, however; he told them he was not ready for comfort care and therefore did not sign on with hospice. Closing referral [email or web address] Other 12-27-2022 Evaluation note* Encounter Date Diagnosis Assessment Notes Treatment Notes Treatment Clinical Notes Oct, Lumbar and sacral arthritis (ICD-10 - M48.9) [email or web address] Other 12-20-2022 Evaluation note* Encounter Date Diagnosis [...] and [employer] handout on hypoglycemia and treament. [email or web address] Other 11-21-2022 Evaluation note* Encounter Date Diagnosis Assessment Notes Treatment Notes Treatment Clinical Notes Sep, Lumbar and sacral arthritis (ICD-10 - M48.9) [email or web address] Other 11-17-2022 History general Narrative - Reported* [...] Medical History VERTIGO Medical History 04/28/2022 Acute tromper elie resp. failure w/hypoxia, COPD excacerbation [facility] Medical History 04/28/2022-Sepsis sec ./ Para influenza PNA multifocal-[facility] Medical History 05/08/2022-Increasing shortness of breath [...] Hospitalization History rt. heart cath Rex Stout- [facility] 05/11/16 Hospitalization History Water retention/ [facility] 02/2017 Hospitalization History [facility] 11/2017 Hospitalization History INFECTION IN LEFT SMALL TOE AND FOOT 11/2018 Hospitalization History [facility] -- ICU -- COPD, SMAL L WOUND ON LEFT FOOT 12/2019 Hospitalization History COPD [facility] 12/2019 Hospitalization History Ankle wound 01/2020 Hospitalization History COVID 11/2020 Hospitalization History A-FIB, CHF, KIDNEY ISSUE S 03/2021 [email or web address] Other 11-10-2022 Evaluation note* Encounter Date Diagnosis [...] the goal and has adequate [employer] stores [email or web address] Other 11-10-2022 Evaluation note* Encounter Date Diagnosis [...] do not pop blisters. 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 S/sx of infection reviewed, if occur follow up right away with PCP, UC or ER. Patient verbalizes understanding and is agreeable with treatment plan Sep, Other Wright material was printed [email or web address] Other 11-10-2022 History general Narrative - Reported* [...] Medical History VERTIGO Medical History 04/28/2022 Acute tromper elie resp. failure w/hypoxia, COPD excacerbation [facility] Medical History 04/28/2022-Sepsis sec ./ Para influenza PNA multifocal-[facility] Medical History 05/08/2022-Increasing shortness of breath [...] Hospitalization History rt. heart cath Rex Stout- [facility] 05/11/16 Hospitalization History Water retention/ [facility] 02/2017 Hospitalization History [facility] 11/2017 Hospitalization History INFECTION IN LEFT SMALL TOE AND FOOT 11/2018 Hospitalization History [facility] -- ICU -- COPD, SMAL L WOUND ON LEFT FOOT 12/2019 Hospitalization History COPD [facility] 12/2019 Hospitalization History Ankle wound 01/2020 Hospitalization History COVID 11/2020 Hospitalization History A-FIB, CHF, KIDNEY ISSUE S 03/2021 [email or web address] Other 10-26-2022 Evaluation note* Encounter Date Diagnosis [...] any worsening erythema, or with other concerns. [email or web address] Other 10-26-2022 History general Narrative - Reported* [...] Medical History VERTIGO Medical History 04/28/2022 Acute tromper elie resp. failure w/hypoxia, COPD excacerbation [facility] Medical History 04/28/2022-Sepsis sec ./ Para influenza PNA multifocal-[facility] Medical History 05/08/2022-Increasing shortness of breath [...] Hospitalization History rt. heart cath Rex Stout- [facility] 05/11/16 Hospitalization History Water retention/ [facility] 02/2017 Hospitalization History [facility] 11/2017 Hospitalization History INFECTION IN LEFT SMALL TOE AND FOOT 11/2018 Hospitalization History [facility] -- ICU -- COPD, SMAL L WOUND ON LEFT FOOT 12/2019 Hospitalization History COPD [facility] 12/2019 Hospitalization History Ankle wound 01/2020 Hospitalization History COVID 11/2020 Hospitalization History A-FIB, CHF, KIDNEY ISSUE S 03/2021 [email or web address] Other 10-21-2022 Evaluation note* Encounter Date Diagnosis Assessment Notes Treatment Notes Treatment Clinical Notes Aug, Lumbar and sacral arthritis (ICD-10 - M48.9) [email or web address] Other 10-03-2022 History general Narrative - Reported* [...] Hospitalization History rt. heart cath Rex Stout- [facility] 05/11/16 Hospitalization History Water retention/ [facility] 02/2017 Hospitalization History [facility] 11/2017 Hospitalization History INFECTION IN LEFT SMALL TOE AND FOOT 11/2018 Hospitalization History [facility] -- ICU -- COPD, SMAL L WOUND ON LEFT FOOT 12/2019 Hospitalization History COPD [facility] 12/2019 Hospitalization History Ankle wound 01/2020 Hospitalization History COVID 11/2020 Hospitalization History A-FIB, CHF, KIDNEY ISSUE S 03/2021 [email or web address] Other 09-12-2022 Evaluation note* Encounter Date Diagnosis [...] (ICD-10 - I10) f/u with pcp 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 [email or web address] Other 08-04-2022 History general Narrative - Reported* [...] Hospitalization History rt. heart cath Rex Stout- [facility] 05/11/16 Hospitalization History Water retention/ [facility] 02/2017 Hospitalization History [facility] 11/2017 Hospitalization History INFECTION IN LEFT SMALL TOE AND FOOT 11/2018 Hospitalization History [facility] -- ICU -- COPD, SMAL L WOUND ON LEFT FOOT 12/2019 Hospitalization History COPD [facility] 12/2019 Hospitalization History Ankle wound 01/2020 Hospitalization History COVID 11/2020 Hospitalization History A-FIB, CHF, KIDNEY ISSUE S 03/2021 [email or web address] Other 08-02-2022 Evaluation note* Encounter Date Diagnosis Assessment Notes Treatment Notes Treatment Clinical Notes Jun, Community acquired pneumonia, unspecified laterality (ICD-10 - J18.9) He will complete the antibiotics and call with any worsening symptoms. I also advised him to call with any worsening diarrhea Jun, COPD (chronic obstructive pulmonary disease) (ICD-10 - J44.9) [email or web address] Other 08-02-2022 History general Narrative - Reported* [...] Hospitalization History rt. heart cath Rex Stout- [facility] 05/11/16 Hospitalization History Water retention/ [facility] 02/2017 Hospitalization History [facility] 11/2017 Hospitalization History INFECTION IN LEFT SMALL TOE AND FOOT 11/2018 Hospitalization History [facility] -- ICU -- COPD, SMAL L WOUND ON LEFT FOOT 12/2019 Hospitalization History COPD [facility] 12/2019 Hospitalization History Ankle wound 01/2020 Hospitalization History COVID 11/2020 Hospitalization History A-FIB, CHF, KIDNEY ISSUE S 03/2021 [email or web address] Other 07-27-2022 Progress note Author Ethan Cummings [facility] June 13, 2022 10:16pm Note Date/Time June 06, 2022 11:[address] [place] [address] [facility] at [address] [address] Hem/Onc Follow Up Note - OP Signed Patient: Adwoa Porter MR#: [id number] : 1955 Acct:[id number] Age/Sex: 66 / M Type: REG RCR [...] hs BCR/ABL was negative. Recent hospitalization at [facility] for COVID PNA. He had also a [...] for coordination of care (as documented) and uknp-bj-besp counseling of patient and/or family. [facility] - Medical History Medical History: Medical [...] signed by Ethan Cummings II, DO> 06/13/[address] [facility] Work Phone: 1(889) 719-162206-28-2022 History general Narrative - Reported* Type Description [...] Hospitalization History rt. heart cath Rex Stout- [facility] 05/11/16 Hospitalization History Water retention/ [facility] 02/2017 Hospitalization History [facility] 11/2017 Hospitalization History INFECTION IN LEFT SMALL TOE AND FOOT 11/2018 Hospitalization History [facility] -- ICU -- COPD, SMAL L WOUND ON LEFT FOOT 12/2019 Hospitalization History COPD [facility] 12/2019 Hospitalization History Ankle wound 01/2020 Hospitalization History COVID 11/2020 Hospitalization History A-FIB, CHF, KIDNEY ISSUE S 03/2021 [email or web address] Other 06-08-2022 Evaluation note* Encounter Date Diagnosis Assessment Notes Treatment Notes Treatment Clinical Notes Apr, Type 2 diabetes mellitus with hyperglycemia (ICD-10 - E11.65) [email or web address] Other 06-06-2022 Evaluation note* Encounter Date Diagnosis Assessment Notes Treatment Notes Treatment Clinical Notes Apr, Acute on chronic systolic congestive heart failure (ICD-10 - I50.23) [email or web address] Other 05-23-2022 Progress note Author Ethan Cummings [facility] April 10, 2022 3:31pm Note Date/Time April 10, 2022 2:42p m [facility] [place] [address] Hem/Onc Follow Up Note - OP Signed Patient: Adwoa Porter MR#: [id number] : 1955 Acct:[id number] Age/Sex: 66 / M Type: REG RCR [...] for coordination of care (as documented) and [id number] counseling of patient and/or family. 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 Follow up with your primary care physciain tomorrow for further testing. Go to the ER for worsening symptoms or concerns. [email or web address] Other 03-22-2022 Evaluation note* Encounter Date Diagnosis [...] overload caused by recurring apneas are controlled. 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 [email or web address] Other 01-10-2022 Evaluation note* Encounter Date Diagnosis Assessment Notes Treatment Notes Treatment Clinical Notes Nov, Type 2 diabetes mellitus with hyperglycemia (ICD-10 - E11.65) [email or web address] Other 12-29-2021 Evaluation note* Encounter Date Diagnosis [...] BENEFIT FROM [employer] with alarms, ordered thru [employer]. discussion and [employer] handout on hypoglycemia and treament. Oct, BMI 35.0-35.9,adult (ICD-10 - Z68.35) Oct, Other I have spent 30 minutes with this patient and over 50% of the visit was counseling done by myself, Tyesha JUDD. [email or web address] Other 11-17-2021 Evaluation note* Encounter Date Diagnosis [...] (ICD-10 - I10) f/u with pcp Sep, USP current use of insulin (ICD-10 - [...] added weight loss benefit, increased glycemic control [email or web address] Other 11-08-2021 Evaluation note* Encounter Date Diagnosis [...] include pain management referral or physical therapy [email or web address] Other 05-31-2021 NoteMR#: [id number] I [facility] Pt. Name: Adwoa Porter Admitted: 04/12/2021 Discharged: 04/17/2021 Date of : 1955 Physician: Balbir Stubbs MD DISCHARGE SUMMARY PRINCIPAL DISCHARGE DIAGNOSES: 1. Klevr-xb-ursxmsu heart failure with reduced ejection fraction. 2. [...] heart failure. The patient was transferred to [facility] on a bumetanide infusion. He was evaluated [...] If strongly occurs, follow up with his supervisor [employer] as soon as possible. 3. The patient was strongly encouraged to consider acute rehab, however, he declined and insisted on returning to home. Total time spent on discharge coordination 45 minutes. Electronically Signed by: Balbir Stubbs MD 04/27/2021 01:19 P Balbir Stubbs MD Date Dict: 04/17/2021/03:44 P/Balbir Stubbs MD Date Trans: 04/18/2021 12:53 A/nena DN_[id number] cc: Vinnie Stewart M.D. [facility] [address] [facility] [address] Lowell Craft M.D. [facility] [place] [address]ZddKettering HealthDischarge summary Author Yakov To [facility] February 15, 2023 2:13pm Note Date/Time February 15, 2023 2:1 3pm [facility] [address] [place] [address] Discharge Summary Signed Patient: Adwoa Porter MR#: [id number] : 1955 Acct:[id number] Age/Sex: 67 / M Adm Date: 3 Loc: Room: [address] [place] [address]: Yakov To DO Copies to: [...] blood sugars and low potassium by his supervisor [employer]. Upon arrival to the hospital his blood [...] signed by Yakov To DO> 02/15/23 1413 [facility] Work Phone: Discharge summary Author Swathi Burnham [facility] February 07, 2024 6:54pm Note Date/Time February 07, 2024 6:5 4pm [facility] [address] [place] [address] Discharge Summary Signed Patient: Adwoa Porter MR#: [id number] : 1955 Acct:[id number] Age/Sex: 68 / M Adm Date: 4 Loc: Room: [address] [place] [address]: Swathi Burnham MD Copies to: [...] medical problems, who was recently hospitalized at [facility] and discharged on January 22 to alf care facility after being treated for septic shock secondary to cellulitis and left foot ulcer. Patient was discharged on IV antibiotic therapy including amikacin for polymicrobial growth from the wound VAC and PICC line. From alf facility he was sent to emergency room back to [facility] for abnormal labs and worsening of kidney [...] also recommended to follow-up with podiatry at [facility]. Vascular was consulted and permanent central venous [...] evaluated by PT OT and discharged to alf facility for furthertreatment. Hemodialysis sessions were arranged [...] Patient expressed understanding and was discharged to alf facility in a stable condition. The patient [...] 11:52 Discharge Plan Discharge Plan Patient Disposition: [facility] Facility Activity: Bed Rest Diet: Renal, Carb Count and Low-Sodium Additional Instructions: [facility] Facility to manage: - Full code - [...] - Documented By: Swathi Burnham MD 02/07/24 7218 Signed By: <Electronically signed by Swathi Burnham MD> 02/07/24 7634 [facility] Work Phone: Evaluation noteNo InformationNol[facility] SEJENT Other Evaluation note* Diagnosis Onset Date Resolution Status Leukocytosis acute [facility] Work Phone: Evaluation note* Diagnosis Onset Date Resolution Status Leukocytosis acute SHIRA (acute kidney injury) [place] Cardiomyopathy acute Elevated serum creatinine [place] Elevated troponin acute Hyperglycemia acute Hypokalemia acute Hyponatremia acute Metabolic alkalosis with respiratory acidosis acute CKD (chronic kidney disease) stage 3, GFR 30-59 ml/min chronic Obstructive sleep apnea tromper elie Paroxysmal A-fib chronic [facility] Work Phone: Evaluation noteNo assessment information available [facility] Work Phone: Evaluation note* Diagnosis Onset Date Resolution Status Acute kidney injury superimposed on CKD acute SHIRA (acute kidney injury) [place] Cellulitis of lower leg acut e Chronic ulcer of left foot with necrosis of muscle acute Controlled type 2 diabetes m ellitus with diabetic polyneuropathy acute Hyperkalemia acute [id number] acute Hyponatremia acute Infected wound acute Leukocytosis acute Metabolic acidosis acute Surgical wound, non healing acute Type 2 diabetes mellitus wit h diabetic chronic kidney disease acute 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.] % (Auto) 17.7 % (.) 02/13/23 16:49 [place] % (Auto) 8.0 % (.) 02/13/23 16:49 Eos % (Auto) 2.9 % (.) 02/13/23 16:49 Baso % (Auto) 0.6 % (.) 02/13/23 16:49 Nucleat RBC Rel Count 0.1 /100 WBC (0-0.5) 02/13/23 16:49 Neut # (Auto) 8.5 x10E3/uL (1.8-7.7) H 02/13/23 16:49 Lymph # (Auto) 2.1 x10E3/uL (1.00-4.8) 02/13/23 16:49 [place] # (Auto) 1.0 x10E3/uL (0.0-0.8) H 02/13/23 [...] pH 6.0 (5.0-9.0) 02/13/23 15:49 Ur Specific [place] 1.018 (1.001-1.030) 02/13/23 15:49 Urine Protein Negative [...] <Electronically signed by Yakov To, DO> 02/13/232134 [facility] Work Phone: Hispbvn general Narrative - Reported* Type Description Date [...] Hospitalization History rt. heart cath Rex Stout- [facility] 05/11/16 Hospitalization History Water retention/ [facility] 02/2017 Hospitalization History [facility] 11/2017 Hospitalization History INFECTION IN LEFT SMALL TOE AND FOOT 11/2018 Hospitalization History [facility] -- ICU -- COPD, SMAL L WOUND ON LEFT FOOT 12/2019 Hospitalization History COPD [facility] 12/2019 Hospitalization History Ankle wound 01/2020 Hospitalization History COVID 11/2020 Hospitalization History A-FIB, CHF, KIDNEY ISSUE S 03/2021 [email or web address] Other Hisalby general Narrative - Reported* Type Description Date [...] Hospitalization History rt. heart cath Rex Stout- [facility] 05/11/16 Hospitalization History Water retention/ [facility] 02/2017 Hospitalization History Observation-[facility] 11/2017 Hospitalization History INFECTION IN LEFT SMALL TOE AND FOOT 11/2018 Hospitalization History [facility] -- ICU -- COPD, SMAL L WOUND ON LEFT FOOT 12/2019 Hospitalization History COPD [facility] 12/2019 Hospitalization History Ankle wound 01/2020 Hospitalization History COVID 11/2020 Hospitalization History A-FIB, CHF, KIDNEY ISSUE S 03/2021 [email or web address] Other History general Narrative - Reported* Type [...] Medical History [facility] Medical History 04/28/2022 Acute tromper elie resp. failure w/hypoxia, COPD excacerbation [facility] Medical History 04/28/2022-Sepsis sec ./ Para influenza PNA multifocal-[facility] Medical History 05/08/2022-Increasing shortness of breath post recent Dx w/covid-19 Medical History 06/13/2022-Severe sep sis to Multifocal PNA, acute on chronic resp. failure w/hypoxia, acute on systolic chronic HF Surgical History Cardiac catherization (07/2010) Surgical History AICD insertion (11/2010) Surgical History right sided heart cath - [place] 10/2013 Surgical History appendectomy Surgical History rt [...] Hospitalization History rt. heart cath Rex Stout- [facility] 05/11/16 Hospitalization History Water retention/ [facility] 02/2017 Hospitalization History Observation-[facility] 11/2017 Hospitalization History INFECTION IN LEFT SMALL TOE AND FOOT 11/2018 Hospitalization History [facility] -- ICU -- COPD, SMAL L WOUND ON LEFT FOOT 12/2019 Hospitalization History COPD [facility] 12/2019 Hospitalization History Ankle wound 01/2020 Hospitalization History COVID 11/2020 Hospitalization History A-FIB, CHF, KIDNEY ISSUE S 03/2021 [email or web address] Other History general Narrative - Reported* Type [...] Medical History [facility] Medical History 04/28/2022 Acute tromper elie resp. failure w/hypoxia, COPD excacerbation [facility] Medical History 04/28/2022-Sepsis sec ./ Para influenza PNA multifocal-[facility] Medical History 05/08/2022-Increasing shortness of breath [...] Hospitalization History rt. heart cath Rex Stout- [facility] 05/11/16 Hospitalization History Water retention/ [facility] 02/2017 Hospitalization History Observation-[facility] 11/2017 Hospitalization History INFECTION IN LEFT SMALL TOE AND FOOT 11/2018 Hospitalization History [facility] -- ICU -- COPD, SMAL L WOUND ON LEFT FOOT 12/2019 Hospitalization History COPD [facility] 12/2019 Hospitalization History Ankle wound 01/2020 Hospitalization History COVID 11/2020 Hospitalization History A-FIB, CHF, KIDNEY ISSUE S 03/2021 Hospitalization History [facility] 01/2023 [email or web address] Other History general Narrative - Reported* Type [...] Medical History [facility] Medical History 04/28/2022 Acute tromper elie resp. failure w/hypoxia, COPD excacerbation [facility] Medical History 04/28/2022-Sepsis sec ./ Para influenza PNA multifocal-[facility] Medical History 05/08/2022-Increasing shortness of breath post recent Dx w/covid-19 Medical History 06/13/2022-Severe sep sis to Multifocal PNA, acute on chronic resp. failure w/hypoxia, acute on systolic chronic HF Medical History [facility]- r ight great toe bleeding (not stopping) Surgical History Cardiac catherization (07/2010) Surgical History AICD insertion (11/2010) Surgical History right sided heart cath - [place] 10/2013 Surgical History appendectomy Surgical History rt [...] Hospitalization History rt. heart cath Rex Stout- [facility] 05/11/16 Hospitalization History Water retention/ [facility] 02/2017 Hospitalization History [facility] 11/2017 Hospitalization History INFECTION IN LEFT SMALL TOE AND FOOT 11/2018 Hospitalization History [facility] -- ICU -- COPD, SMAL L WOUND ON LEFT FOOT 12/2019 Hospitalization History COPD [facility] 12/2019 Hospitalization History Ankle wound 01/2020 Hospitalization History COVID 11/2020 Hospitalization History A-FIB, CHF, KIDNEY ISSUE S 03/2021 Hospitalization History [facility] 01/2023 Hospitalization History [facility] discha rged 03-27-2023 [email or web address] Other History general Narrative - Reported* Type [...] Medical History [facility] Medical History 04/28/2022 Acute tromper elie resp. failure w/hypoxia, COPD excacerbation [facility] Medical History 04/28/2022-Sepsis sec ./ Para influenza PNA multifocal-[facility] Medical History 05/08/2022-Increasing shortness of breath post recent Dx w/covid-19 Medical History 06/13/2022-Severe sep sis to Multifocal PNA, acute on chronic resp. failure w/hypoxia, acute on systolic chronic HF Medical History [facility]- r ight great toe bleeding (not stopping) Medical History pneumonia-[facility] 06-05 Medical History [facility]-7-2023 Surgical History Cardiac catherization (07/2010) Surgical History [...] Hospitalization History rt. heart cath Rex Stout- [facility] 05/11/16 Hospitalization History Water retention/ [facility] 02/2017 Hospitalization History [facility] 11/2017 Hospitalization History INFECTION IN LEFT SMALL TOE AND FOOT 11/2018 Hospitalization History [facility] -- ICU -- COPD, SMAL L WOUND ON LEFT FOOT 12/2019 Hospitalization History COPD [facility] 12/2019 Hospitalization History Ankle wound 01/2020 Hospitalization History COVID 11/2020 Hospitalization History A-FIB, CHF, KIDNEY ISSUE S 03/2021 Hospitalization History [facility] 01/2023 Hospitalization History [facility] discha rged 03-27-2023 Hospitalization History [facility] x2 7-2 023 [email or web address] Other History general Narrative - Reported* Type [...] Medical History [facility] Medical History 04/28/2022 Acute tromper elie resp. failure w/hypoxia, COPD excacerbation [facility] Medical History 04/28/2022-Sepsis sec ./ Para influenza PNA multifocal-[facility] Medical History 05/08/2022-Increasing shortness of breath post recent Dx w/covid-19 Medical History 06/13/2022-Severe sep sis to Multifocal PNA, acute on chronic resp. failure w/hypoxia, acute on systolic chronic HF Medical History [facility]- r ight great toe bleeding (not stopping) Medical History pneumonia-[facility] 06-05 Medical History [facility]-7-2023 Medical History [id number]-[facility] Surgical History Cardiac catherization (07/2010) Surgical History AICD insertion (11/2010) Surgical History right sided heart cath - [place] 10/2013 Surgical History appendectomy Surgical History rt [...] History rt. heart cath D Addy St[facility]- [facility] 05/11/16 Hospitalization History Water retention/ [facility] 02/2017 Hospitalization History [facility] 11/2017 Hospitalization History INFECTION IN LEFT SMALL TOE AND FOOT 11/2018 Hospitalization History [facility] -- ICU -- COPD, SMAL L WOUND ON LEFT FOOT 12/2019 Hospitalization History COPD [facility] [place] 12/2019 Hospitalization History Ankle wound 01/2020 Hospitalization History COVID 11/2020 Hospitalization History A-FIB, CHF, KIDNEY ISSUE S 03/2021 Hospitalization History [facility] 01/2023 Hospitalization History [facility] discha rged 03-27-2023 Hospitalization History [facility] x2 7-2 023 Hospitalization History [facility] 10-2 023 [email or web address] Other History general Narrative - Reported* Type [...] Medical History [facility] Medical History 04/28/2022 Acute tromper elie resp. failure w/hypoxia, COPD excacerbation [facility] Medical History 04/28/2022-Sepsis sec ./ Para influenza PNA multifocal-[facility] Medical History 05/08/2022-Increasing shortness of breath post recent Dx w/covid-19 Medical History 06/13/2022-Severe sep sis to Multifocal PNA, acute on chronic resp. failure w/hypoxia, acute on systolic chronic HF Medical History [facility]- r ight great toe bleeding (not stopping) Medical History pneumonia-[facility] 06-05 Medical History [facility]-7-2023 Medical History [id number]-[facility] Surgical History Cardiac catherization (07/2010) Surgical History AICD insertion (11/2010) Surgical History right sided heart cath - [place] 10/2013 Surgical History appendectomy Surgical History rt [...] Hospitalization History rt. heart cath Rex Stout- [facility] 05/11/16 Hospitalization History Water retention/ [facility] 02/2017 Hospitalization History Observation-[facility] 11/2017 Hospitalization History INFECTION IN LEFT SMALL TOE AND FOOT 11/2018 Hospitalization History [facility] -- ICU -- COPD, SMAL L WOUND ON LEFT FOOT 12/2019 Hospitalization History COPD [facility] 12/2019 Hospitalization History Ankle wound 01/2020 Hospitalization History COVID 11/2020 Hospitalization History A-FIB, CHF, KIDNEY ISSUE S 03/2021 Hospitalization History [facility] 01/2023 Hospitalization History [facility] discha rged 03-27-2023 Hospitalization History [facility] x2 7-2 023 Hospitalization History [facility] 08-20 023 Hospitalization History [facility] rib fx left Hospitalization History [facility] -pnemo jennifer [email or web address] Other History general Narrative - Reported* Type [...] Medical History [facility] Medical History 04/28/2022 Acute tromper elie resp. failure w/hypoxia, COPD excacerbation [facility] Medical History 04/28/2022-Sepsis sec ./ Para influenza PNA multifocal-[facility] Medical History 05/08/2022-Increasing shortness of breath post recent Dx w/covid-19 Medical History 06/13/2022-Severe sep sis to Multifocal PNA, acute on chronic resp. failure w/hypoxia, acute on systolic chronic HF Medical History [facility]- r ight great toe bleeding (not stopping) Medical History pneumonia-[facility] 06-05 Medical History [facility]-7-2023 Medical History [id number]-[facility] Medical History NON RESPONSIVE X 2 [...] Hospitalization History rt. heart cath Rex Stout- [facility] 05/11/16 Hospitalization History Water retention/ [facility] 02/2017 Hospitalization History [facility] 11/2017 Hospitalization History INFECTION IN LEFT SMALL TOE AND FOOT 11/2018 Hospitalization History [facility] -- ICU -- COPD, SMAL L WOUND ON LEFT FOOT 12/2019 Hospitalization History COPD [facility] [place] 12/2019 Hospitalization History Ankle wound 01/2020 Hospitalization History COVID 11/2020 Hospitalization History A-FIB, CHF, KIDNEY ISSUE S 03/2021 Hospitalization History [facility] 01[facility]2023 Hospitalization History [facility] discha rged 03-27-2023 Hospitalization History [facility] x2 7-2 023 Hospitalization History [facility] 10-2 023 Hospitalization History [facility] rib fx left Hospitalization History [facility] -pnemo jennifer [email or web address] Other History general Narrative - Reported* Type [...] Medical History [facility] Medical History 04/28/2022 Acute tromper elie resp. failure w/hypoxia, COPD excacerbation [facility] Medical History 04/28/2022-Sepsis sec ./ Para influenza PNA multifocal-[facility] Medical History 05/08/2022-Increasing shortness of breath post recent Dx w/covid-19 Medical History 06/13/2022-Severe sep sis to Multifocal PNA, acute on chronic resp. failure w/hypoxia, acute on systolic chronic HF Medical History [facility]- r ight great toe bleeding (not stopping) Medical History pneumonia-[facility] 06-05 Medical History [facility]-7-2023 Medical History [id number]-[facility] Medical History NON RESPONSIVE X 2 IN THE LAST 6 WEEKS Surgical History Cardiac catherization (07/2010) Surgical History AICD insertion (11/2010) Surgical History right sided heart cath - [place] 10/2013 Surgical History appendectomy Surgical History rt [...] Hospitalization History rt. heart cath Rex Stout- [facility] 05/11/16 Hospitalization History Water retention/ [facility] 02/2017 Hospitalization History Observation-[facility] 11/2017 Hospitalization History INFECTION IN LEFT SMALL TOE AND FOOT 11/2018 Hospitalization History [facility] -- ICU -- COPD, SMAL L WOUND ON LEFT FOOT 12/2019 Hospitalization History COPD [facility] 12/2019 Hospitalization History Ankle wound 01/2020 Hospitalization History COVID 11/2020 Hospitalization History A-FIB, CHF, KIDNEY ISSUE S 03/2021 Hospitalization History [facility] 01/2023 Hospitalization History [facility] discha rged 03-27-2023 Hospitalization History [facility] x2 7-2 023 Hospitalization History [facility] 10-2 023 Hospitalization History [facility] rib fx left Hospitalization History [facility] -[facility]emo jennifer [email or web address] Other progress note Author Ethan Cummings [facility] December 04, 2022 1:47pm Note Date/Time December 04, 2022 1 :44pm [facility] Center at [address] [address] Hem/Onc Follow Up Note - OP Signed Patient: Adwoa Porter MR#: [id number] : 1955 Acct:[id number] Age/Sex: 67 / M Type: REG RCR [...] hs BCR/ABL was negative. Recent hospitalization at [facility] for COVID PNA. He had also a [...] for coordination of care (as documented) and [id number] counseling of patient and/or family. [facility] - Medical History Medical History: Medical [...] % (Auto) 67.1, Lymph % (Auto) 20.5, [place] % (Auto) 8.2, Eos % (Auto) 3.5, Baso % (Auto) 0.7, Nucleat RBC Rel Count 0.1, Neut # (Auto) 7.9 H, Lymph # (Auto) 2.4, [place] # (Auto) 1.0 H, Eos # (Auto) [...] dulaglutide 4.5 mg/0.5 mL subcutaneous pen injector ([facility]) See Rx Instructions .Route .COMPLEX [...] by Ethan Cummings II, DO> 12/04/22 1347 [facility] Work Phone: Advance Directives No Advanced Directives Records Found Advance Directive Response Recorded Date/ Time Advance Directives No July 2:42pm Advance Directive Response Recorded Date/ Time Advance Directives No July 1:42pm Chief Complaint and Reason for Visit Chief Complaint Right great toe woun d Reason for Visit Cellulitis of left t oe Controlled type 2 diabetes mellitus with diabetic polyneuropathy [id number] Chief Complaint DM Obstructive sleep apnea Chief Complaint DM Leukocytosis Reason for Visit Leukocytosis Chief Complaint Leukocytosis DM sent by dyalisis Reason for Visit Leukocytosis SHIRA (acute kidney injury) Cardiomyopathy Elevated serum creatinine Elevated troponin Hyperglycemia Hypokalemia Hyponatremia Metabolic alkalosis with respiratory acidosis CKD (chronic kidney disease) stage 3, GFR 30-59 ml/min Obstructive sleep apnea Paroxysmal A-fib Chief Complaint Leukocytosis DM sent by Zidisha E87.6 I48.0 Reason for Visit Leukocytosis SHIRA [...] 2 diabetes mellitus with diabetic polyneuropathy Hyperkalemia [id number] Hyponatremia Infected wound Leukocytosis Metabolic acidosis Surgical wound, non healing Type 2 diabetes mellitus with diabetic chronic kidney disease 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 Diabetes Assessments Diagnosis Onset Date Resolution Status Cellulitis of left toe acute Controlled type 2 diabetes m ellitus with diabetic polyneuropathy acute [id number] acute Family History No Family History Records [...] encounter (T23.022A) Referral Organization [facility] Referring Provider First Name Gisselle Referring Provider Last Name Noble Referring Provider Specialty Nurse Pract itioner Referred Organization [facility] Referred Address [address],[place],[address] Referred Provider Specialty Wound Care Referral Priority Routine General Notes Lennie Mcghee 022 12:46:37 PM >Received today and waiting for office notes to be locked before sending referral Lennie Mcghee 10/03/2022 03:00:03 PM >Referral was fax Clinical Notes Office [phone] Reason * FU 02/13 lumbar arthritis/pain - wants Wood or nadeen Diagnosis 1 Lumbar and sacral ar thritis (M48.9) Referral Organization [facility] Referring Provider First Name Vinnie Referring Provider Last Name Osvaldo Referring Provider Specialty Family Prac yamil Referred Organization [facility] Referred Address [address] [place], [place],[address] Referred Provider Specialty Pain Medicin e Referral Priority Routine General Notes Doris Modi 12:58:37 PM > referral received and faxed Additional Source Comments (unrecognized sect ion and content) No Status Records FoundNo Status Records FoundNo Status Records FoundNo Status Records FoundNo Status Records FoundNo Status Records FoundNo Status Records Found INFORMATION SOURCE (unrecogn ized section and content) DATE CREATED AUTHOR 11/17/2020 [facility] DATE CREATED AUTHOR AUTHOR'S ORGANIZ ATION 03/05/2022 [facility] DATE CREATED AUTHOR AUTHOR'S ORGANIZ ATION 04/27/2023 [facility] DATE CREATED AUTHOR AUTHOR'S ORGANIZ ATION 09/03/2023 [facility] DATE CREATED AUTHOR AUTHOR'S ORGANIZ ATION 12/23/2023 [facility] DATE CREATED AUTHOR AUTHOR'S ORGANIZ ATION 01/26/2024 [facility] DATE CREATED AUTHOR AUTHOR'S ORGANIZ ATION 02/09/2024 [facility] REASON FOR VISIT (unrecogniz ed section and content) 4 month Follow upportable co ncentratorDM, Needs to reapply for PAP, Type 2 IDDM, [facility] [address] FOLLOW UP, Patient will mail PAP back when he is done 10-05-21DS Trul[employer] RefillAPPT CANCELLEDDS Voicemail/ Diabetic ShoesXRAY RESULTSappt question-DS Patient Assistance Renewal/APPROVEDDM 6 week f/u, Type 2 IDDM, [facility] [address] FOLLOW UP, [facility] Visit CodesMED REFILLDS please [...] F/U - pneumonia, SOB, Pt was at [facility], He said he went in on 06/12 and was dc 06/16, He said he is feeling betterDS DM appt CxFallrefillDS Sensor refillDM, DM, DM follow up, Type 2 IDDM, LUCAS 2, [facility] Visit CodesD/Ctrouble breathingrefillDS Returning clinic's callFINGER PAINDS please callsickCKD and HTNburns left handrefillrefillDS Needs JardianceWound Care Referral Updatemed refillHosp d/c Farxiga and JardianceD/C [facility] reviewrefillDM follow up, DM, DM, DM follow up, Type 2 IDDM, LUCAS 2, [facility] Visit Codes, In-patient [facility]-10/18-10/24/2022, [facility] Visit CodesconsultDeclined servicesStein Hospice ReferraldownloadStein Hospice ReferralNo [id number] requestDS PAP Basaglar/TrulicityDS VoicemailrefillHOSPITAL VISIT, Acute on chronic systolic CHFrefillupdatefall, bruise, lump on back near L shoulderbalance issuesrefillHOSPITAL FOLLOW [facility]fallNo Informationrefillbruising all over, difficulty walkingDS N/S [...] End: December 10, 2023 Nicolette Manzano , LOMBARDI DEVELOPER Attending Provider Active Start: December 10, 2023 [...] Primary Care Provider Active Nicolette Manzano , LOMBARDI DEVELOPER Attending Provider Active Team Status: Active Member [...] 2024 End: February 05, 2024 Selin George BLOOD BANK ASSISTANT-C Other Provider Active St art: January 28, [...] Lia Law MD Other Provider Active Start: [facility] 2023 Valentin Valle DPM Other Provider [...] BE BASED ON THE PRIMARY CLINICAL RECORDS. [facility]. provides no warranty or guarantee of the accuracy or completeness of information in this document.
[2024-02-13 07:08] LABS: Basophils Percent Auto 0.2 % (0.2-2.0); Eosinophils Absolute Auto 0.3 10^3/uL (0.0-0.7); Eosinophils Percent Auto 2.7 % (0.9-7.0); Immature Granulocytes Abs Auto 0.03 10^3/uL (0.00-0.03); Immature Granulocytes Pct Auto 0.3 % (0.0-0.5); Lymphocytes Absolute Auto 1.8 10^3/uL (1.2-3.8); Lymphocytes Percent Auto 16.3 % (20.5-60.0); Mean Corpuscular HGB Conc 30.8 g/dL (29.9-35.2); Mean Corpuscular Hemoglobin 26.3 pg (25.9-34.0); Mean Corpuscular Volume 85.4 fL (80.0-94.0); Monocytes Absolute Auto 0.7 10^3/uL (0.3-0.8); Monocytes Percent Auto 6.8 % (1.7-12.0); Neutrophils Percent Auto 73.7 % (43.0-75.0); Platelet Count 183 10^3/uL (150-450); Red Blood Count 2.47 10^6/uL (4.70-6.10); Red Cell Distribution Width 16.7 % (11.0-15.0); White Blood Count 10.8 10^3/uL (4.0-11.0)
[2024-02-13 07:24] LABS: Hemoglobin 6.5 g/dL (14.0-18.0)
[2024-02-13 07:25] LABS: Hematocrit 21.1 % (42.0-54.0)
== END 2024-02-13 01:58 | disposition home or self-care (01) ==
LOC: LAB 01:57
PROVIDERS: PCP Family Medicine; Visit Provider Family Medicine
DX: Z79.2 Long term (current) use of antibiotics (principal)
CPT/HCPCS: 36415; 85025

== ENCOUNTER 2024-02-13 08:48 | Outpatient (REF) | payer MEDICARE, SELFPAY ==
[2024-02-13 09:10] LABS: Hemoglobin 6.1 g/dL (14.0-18.0)
== END 2024-02-13 08:49 | disposition home or self-care (01) ==
LOC: LAB 08:48
PROVIDERS: PCP Family Medicine; Visit Provider Internal Medicine
DX: D64.9 Anemia, unspecified (principal)
CPT/HCPCS: 36415; 85018

== ENCOUNTER 2024-02-14 07:28 | Outpatient (RCR) | payer MEDICARE, SELFPAY ==
[2024-02-14] VITALS (9 sets, daily range): BP systolic 91–104; BP diastolic 57–68; PULSE 80–85; RESP 16–20; TEMP 36.1–36.5; O2SAT 95–98
--- NOTE | 2024-02-14 08:43 | PC.NURSE ---
0740: Pt. to [facility] via w/c accompanied by driver/sales workers. Pt. alert and cooperative. Assisted pt. to recliner x's 2 assist. Positioned for comfort. PICC line in place to right upper arm and without s&s of infection or extravasation. Flushes easily with good blood return with aspiration. Blood consent obtained. Questions addressed. 0756: 1 unit PRBC initiated at this time. Given ice chips per pt. request. 0805: [facility] phoned per this RN. Verified meds that were administered this am before pt. arrival. 0812: Tolerating blood transfusion without s&s of adverse reaction. VSS. Denies needs.
--- NOTE | 2024-02-14 09:14 | PC.NURSE ---
0855: Pt. resting quietly with eyes closed. VSS. Blood cont. to infuse without s&s of reaction.
--- NOTE | 2024-02-14 09:42 | PC.NURSE ---
0935: First unit PRBC infused without s&s of transfusion reaction. VSS. 0939: Second unit PRBC initiated at this time. Resting quietly with eyes closed. Resps even and non-labored. Appears to be without s&s of distress.
--- NOTE | 2024-02-14 10:45 | PC.NURSE ---
1040: Pt. without change. VSS.
--- NOTE | 2024-02-14 11:30 | PC.NURSE ---
1115: Pt.'s daughter at chairside. Second unit PRBC completed without s&s of adverse reaction. VSS. PICC line flushed with saline. 1122:Pt. d/c'd via w/c to [facility] with transporter and pt.s daughter.
== END 2024-02-17 23:59 | disposition home or self-care (01) ==
LOC: INF 07:28
PROVIDERS: PCP Family Medicine; Visit Provider Internal Medicine
DX: D64.9 Anemia, unspecified (principal); Z79.2 Long term (current) use of antibiotics
CPT/HCPCS: 36415; 36430; 85018; 85025; 86850; 86900; 86901; P9016

== ENCOUNTER 2024-02-15 16:38 | Outpatient (REF) | payer MEDICARE, SELFPAY ==
--- OUTSIDE RECORDS SUMMARY | 2024-02-11 01:16 | XMS_ITS | CCD ---
Author Organization [facility] Care Team Providers Care Helpdesk Specialist Name Role Phone Vinnie Stewart Primary Care Provider Unavailab Valentin Gomez (WND) Attending Provider Unavaila Vinnie Lemon Primary Care Provider [phone] Nicolette Manzano Attending Provider Ivon Kat Attending Provider [place] Procedure Practitioner Unavailab VINNIE Nash Primary Care Unavailable LOWELL CRAFT Referring Unavailable ANNABELLE BOYD Surgeon Unavailable CECILE MAJOR Admitting Unavailable CECILE MAJOR Attending Unavailable [place] Procedure Practitioner Unavailab BALBIR Cardenas Surgeon Unavailable Vinnie Stewart Unavailable Vinnie Stewart Unavailable Brittnee Spain Unavailable Ruthie Guzman Unavailable Balbir Ba Unavailable Simba Kaufman Unavailable Gisselle Dickey Unavailable DO Vinnie Stewart Primary Care Provider CHARISSE Manzano Attending Provider DO Ethan Cummings II Attending Provider [phone] MD Simba Kaufman Referring Provider [phone] DO Vinnie Stewart Primary Care Provider DO Ethan Cumminsg II Attending Provider MD Simba Kaufman Referring Provider [phone] CHARISSE Manzano Attending Provider DO Alejandro Duncan Emergency Provider DO Yakov To Admit Provider [phone] DO Yakov To Attending Provider SHIRLEY, BRYCE Admitting Unavailable SHIRLEY, BRYCE Attending Unavailable SHIRLEY, BRYCE Consulting [facility] Unavailable FAWWAD, BROWN H Attending Unavailable FAWWAD, BROWN H Admitting [facility] Care Unavailable FAWWAD, BROWN H Admitting Unavailable FAWWAD, BROWN H Attending Unavailable [facility] Primary Care Unavailable SEPIDEH ., NIK Admitting Unavailable SEPIDEH ., NIK Attending Unavailable JACOBSON ., DR PROMISE Proctor Consulting Unavailable [facility] Primary Care Unavailable PAY ., DR TOM Consulting Unavailable SUSHIL STOUT Consulting Unavailable AHDOOTSTU Consulting Unavailable CAILIN, MASSIMO Consulting Unavailable PRUITTMICKY Consulting Unavailable SISTER, MURTAZA Consulting Unavailable SEPIDEH ., NIK Consulting Unavailable [facility] Primary Care Unavailable SHANTANU ., DR SOTELO Consulting Unavailable HOY ., DR SOTELO Admitting Unavailable HOY ., DR SOTELO Attending Unavailable ZIEBER, DR BIANCA Sorto Consulting Unavailable SONIDO VAUGHN Consulting Unavailable AUSTIN, BINOR Consulting Unavailable ALEK, AMAR Consulting Unavailable ADRIEL VIRGEN Consulting Unavailable FAWWAD, BROWN H Attending Unavailable FAWWAD, BROWN H Admitting [facility] Unavailable FAWWAD, BROWN H Attending Unavailable FAWWAD, BROWN H Admitting Unavailable [facility] Primary Care Unavailable CAILIN, MASSIMO Consulting Unavailable CAILIN, MASSIMO Admitting Unavailable CAILIN, MASSIMO Attending Unavailable [facility] Primary Care Unavailable YEARTY, KODI Consulting Unavailable YEARTY, KODI Admitting Unavailable STEPHANIE MYERSARA Attending Unavailable [facility] Primary Care Unavailable MISC, DR YEN Consulting Unavailable MISC, DR YEN Admitting Unavailable MISC, DR YEN Attending Unavailable [facility] Care Unavailable JAC, SIMBA Consulting Unavailable JAC, SIMBA Admitting Unavailable STEWART, VINNIE Primary Care Unavailable JACTJUL Attending Unavailable JAC, SIMBA Admitting Unavailable JAC, SIMBA Attending Unavailable [facility] Primary Care Unavailable JAC, SIMBA Consulting Unavailable FAWWAD, BROWN H Attending Unavailable FAWWAD, BROWN H Admitting Unavailable STEWART, CHOCORUA Primary Care Unavailable FAWWAD, BROWN H Admitting Unavailable FAWWAD, BROWN H Attending Unavailable [facility] Primary Care Unavailable FAWWAD, BROWN H Attending Unavailable FAWWAD, BROWN H Admitting Unavailable [facility] Primary Care Unavailable YEARTY, KODI Admitting Unavailable YEARTY, KODI Attending Unavailable STEWART, CHOCORUA Primary Care Unavailable YEARTY, KODI Consulting Unavailable CAILIN, MASSIMO Admitting Unavailable CAILIN, MASSIMO Attending Unavailable STEWART, CHOCORUA Primary Care Unavailable CAILIN, MASSIMO Consulting Unavailable EMA ., CANDELARIA Admitting Unavailable EMA Olson, CANDELARIA Attending Unavailable JORGE BUCKNER Consulting Unavailable [facility] Primary Care Unavailable EMA Olson, CANDELARIA Consulting Unavailable FAWWAD, BROWN H Attending Unavailable [facility] Care Unavailable FAWWAD, BROWN H Admitting Unavailable DR IMTIAZ DUVAL Consulting Unavailable FAWWAD, BROWN H Consulting Unavailable SOFÍA GASTON Consulting Unavailable MIRYAM MENDEZ Consulting Unavailable JOSE STRONG Consulting Unavailable BERMUDEZ, ALLIE Consulting Unavailable FAWWAD, BROWN H Admitting Unavailable FAWWAD, BROWN H [facility]ending [facility], BROWN H Attending Unavailable FAWWAD, BROWN H Admitting Unavailable [facility] Primary Care Unavailable FAWWAD, BROWN H Admitting Unavailable FAWWAD, BROWN H Attending [facility] Care Unavailable HIGHLANDER, PETER D Admitting Unavailable HIGHLANDER, PETER D Attending Unavailable [facility] Primary Care Unavailable HIGHLANDER, PETER D Admitting Unavailable HIGHLANDER, PETER D Attending Unavailable [facility] Primary Care Unavailable HIGHLANDER, PETER D Admitting Unavailable HIGHLANDER, PETER D Attending Unavailable STEWART, CHOCORUA Primary Care Unavailable HIGHLANDER, PETER D Admitting Unavailable HIGHLANDER, PETER D Attending Unavailable STEWART, CHOCORUA Primary Care Unavailable HIGHLANDER, PETER D Admitting Unavailable HIGHLANDER, PETER D Attending Unavailable [facility] Care Unavailable SADE, DR BIANCA Sorto Consulting Unavailable PAY ., DR TOM Admitting Unavailable PAY ., DR TOM Attending Unavailable [facility] Primary Care Unavailable PAY ., DR TOM Consulting Unavailable FAWWAD, BROWN H Admitting Unavailable FAWWAD, BROWN H Attending Unavailable STEWART, VINNIE Primary Care Unavailable BROOKFIELD, DR BALBIR Thorpe Consulting Unavailable ZIEBER, DR BIANCA Sorto Consulting Unavailable NADERER, DR LOWELL Jones Consulting Unavailable KASEY, EDSON Consulting Unavailable BRIANNA ., ANAMIKA Consulting Unavailable FAWWAD, BROWN H Consulting Unavailable HOY ., DR SOTELO Consulting Unavailable HOY ., DR SOTELO Admitting Unavailable HOY ., DR SOTELO Attending Unavailable STEWART, VINNIE Primary Care Unavailable ZIEBER, DR BIANCA Sorto Consulting Unavailable JOHANA, SONIDO Consulting Unavailable WILEY ., MAYE TERAN Consulting Unavailable SISTER, MURTAZA Consulting Unavailable STELLA, JULIA Consulting Unavailable BLANCA SANTOS Consulting Unavailable GIRISH, SUSHIL Admitting Unavailable SUSHIL STOUT Attending Unavailable SUSHIL STOUT Consulting Unavailable STEWART, VINNIE Primary Care Unavailable FAWWAD, BROWN H Admitting Unavailable CARINAD, BROWN H Attending Unavailable VINNIE STEWART Primary Care Unavailable JORGE ARROYO Admitting Unavailable JORGE ARROYO Attending Unavailable VINNIE STEWART Primary Care Unavailable Mapus, Tondra Unavailable PROVIDER, UNKNOWN Attending Unavailable PROVIDER, UNKNOWN Admitting Unavailable VINNIE STEWART Referring Unavailable VINNIE STEWART Primary Care Unavailable DO Vinnie Stewart Primary Care Provider [place], AIRPORT CONTROL OPERATOR Nicolette Wright Attending Provider [phone] DAHIANA BELCHER Attending Unavailable SUSHIL STOUT Attending Unavailable FATIMAH NARVAEZ Referring Unavailable BRYCE WATSON Attending Unavailable MASSIMO SWAN Attending Unavailable SUSHIL STOUT Attending Unavailable SHIRLEY, BRYCE Attending Unavailable BRYCE WATSON Attending Unavailable SUSHIL STOUT Attending Unavailable DO Vinnie Stewart Primary Care Provider [place], AIRPORT CONTROL OPERATOR Tondra K Attending Provider [phone] NELLY Arroyo Attending Provider [phone] DO Farhan Hudson Admit Provider [phone] MD Farhan Schofield Other Provider MD Lia Law Other Provider NELLY Valle Other Provider [phone] MD Raul Bravo Other Provider [phone] KATIE Bailey Other Provider Unavailable MD Rodrick Herndon Other Provider KINSEY George Other Provider [phone] MD Shaheed Bryan Other Provider MD Swathi Burhnam Attending Provider [phone] Yakov To Attending Unavailable Vinnie Stewart Primary Care Unavailable Yakov To Admitting Unavailable Farhan Hudson Admitting Unavailable Swathi Burnham Attending Unavailable Farhan Schofield Consulting Unavailable Vinnie Stewart Primary Care Unavailable Lia Law Consulting Unavailable Valentin Valle Consulting Unavailable Raul Bravo Consulting UnavailVeronica Cortez Consulting Unavailable Rodrick Herndon Consulting Unavailable Selin George Consulting Unavailable Shaheed Bryan Consulting Unavailable Yakov To Attending Unavailable Vinnie Stewart Primary Care Unavailable Yakov To Admitting Unavailable Jorge Arroyo Admitting Unavailable Jorge Arroyo Attending Unavailable Vinnie Stewart Primary Care Unavailable Adrienne Manzanoa K Admitting Unavailable Adrienne Manzanoa K Attending Unavailable Unavailable Unavailable Unavailable Allergies Allergy Classification Reported Allergen(s) Allergy Type Date of Onset Reaction(s) Facility (11 sources) Angiotensin Converting Enzyme (Lupis) Inhibitors; 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: [LUPIS Inhibitors] Propensity to adverse reactions 2 Cough [facility] Repository (20 sources) Angiotensin Converting Enzyme (Lupis) Inhibitors Propensity to adverse reactions cough [employer] Other Medications Current Medications Medication Drug Class(es) [...] for 30 day(s) May, Active Start: 04-03-2022 End: 02-05-2024 take 1 tablet by mouth three times daily Hydrocodone-Acetaminophen Active 1 TAB P O Three times daily 9 February 05, 2024 Start: 01-27-2022 take 1 tablet by cedrick [...] 8 hrs for 30 day(s) Sep, Active [id number] 200 actuat albuterol 0.09 mg/actuat metered dose [...] Sulfate Active 2.5 MG INHALATION Q4H April 10, 2022 12:00am Start: 08-05-2012 take 2 puff(s) by in [...] 25 MG PO Daily at bedtime April 10, 2022 12:00am Start: 07-31-2019 End: 02-09-2020 take 25 mg by mouth at bedtime Amitriptyline Discontin ued 25 MG PO Bedtime July 31, 2019 12:00am February 09, 2020 12:49pm apixaban 2.5 mg oral tablet (9 sources) Factor Xa Inhibitor Start: 02-05-2024 take 1 tablet by mouth twice daily Apixaban (Eliquis) 2.5 mg Tablet Active 2.5 MG PO Twice daily 0 February 05, 2024 12:00am Start: 02-24-2019 take 5 mg by mouth [...] aspirin 81 mg delayed release oral tablet (14 sources) Platelet Aggregation Inhibitor, Nonsteroidal Anti-inflammatory Drug [...] 2 puff(s) by in halation twice daily calcitriol 0.53939 mg oral capsule (1 source) Vitamin D3 Analog Start: 02-05-2024 Calcitriol (Rocaltrol) 0.25 mcg Capsule Active 0.25 MCG PO MoWeFr@0900 0 February 05, 2024 12:00am carvedilol 25 mg oral tablet (20 sources) alpha-Adrenergic Devaughn, beta-Adrenergic Devaughn Start: 02-05-2024 take 12.5 mg by mouth twice daily Carvedilol Active 12.5 MG PO Twice daily 60 February 05, 2024 4:31pm Start: 02-24-2019 End: 02-05-2024 take 25 mg by mouth twice daily Carvedilol Discontinued 25 MG PO Twice daily April 10, 2022 12:00am February 05, 2024 4:36pm cephalexin 500 mg oral capsule (20 sources) Cephalosporin Antibacterial Start: 03-21-2023 take 1 capsule by mouth every eight hours Cephalexin 500 MG 1 capsule Orally 3 times a day for 7 days March, Active Start: 09-13-2022 take 1 tablet by [facility] every eight hours Cephalexin 500 MG 1 tablet Orally every 8 hours for 7 days Aug, Active Start: 03-02-2022 take 1 capsule by [facility] every eight hours Cephalexin 500 MG 1 [...] Start: 12-09-2021 take 1 capsule by mo uth every twelve hours Cephalexin 500 MG 1 capsule Orally bid for 10 day(s) Nov, Active Start: 07-31-2019 End: 12-04-2019 take 500 mg by mouth three times daily Cephalexin Discontinued 500 MG PO Three times daily July 31, 2019 12:00am December 04, 2019 11:49am cholecalciferol 0.05 mg oral tablet (13 sources) Vitamin D Start: 04-10-2022 take 1 [...] 1 capsule Orally EVERY 6 HRS Active Diabetic Shoes (20 sources) Start: 11-22-19 22 Diabetic Shoes as directed Nov, Active doxycycline hyclate 100 mg oral tablet (20 sources) Tetracycline-class Drug Start: 09-27-20 take 1 tablet by mouth every twelve [...] Patient assistance initated by Dr. Stewart Active ferrous sulfate 325 mg oral tablet (20 [...] DX E11.65 Apr, Active FreeStyle Lucas 2 [place] - (20 sources) FreeStyle Lucas 2 [place] - USE READER TO TEST BLOOD SUGAR DIRECTED DAILY for 365 Active FreeStyle Lucas 2 [place] - USE DIRECTED DAILY for 365 Active FreeStyle Lucas 2 [place] Sys tm - (20 sources) FreeStyle Lucas 2 [place] Systm - as directed SQ Daily Active FreeStyle Lucas 2 [place] Systm - as directed SQ Daily for [...] QID and prn for 84 days Active gabapentin 400 mg oral capsule (20 sources) Anti-epileptic Agent Start: 02-05-2024 take 200 mg by mouth twice daily Gabapentin Active 200 MG PO Twice daily February 05, 2024 4:31pm Start: 07-09-2020 End: 02-05-2024 take 400 mg by mouth twice daily Gabapentin Discontinued 400 MG PO Twice daily April 10, 2022 12:00am February 05, 2024 4:36pm Start: 03-12-2020 End: 04-10-2022 take 600 mg [...] MG PO Twice daily February 17, 2020 12:15pm March 12, 2020 [...] Three times daily April 10, 2022 12:00am Insulin Aspart U-100 (Novolog Flexpen U-100 Insulin) 100 unit/mL (3 mL) Insulin Pen (1 source) Start: 02-05-2024 inject 1 [IU] by subcutaneous injection once at mealtime Insulin Aspart U-100 (Novolog Flexpen U-100 Insulin) 100 unit/mL (3 mL) Insulin Pen Active 1 UNIT SUBCUT 3X/Day with meals and bedtime 0 February 05, 2024 12:00am see protocol 3 ml insulin degludec 200 unt/ml pen injector (20 sources) Insulin Analog Start: 09-18-2023 Tresiba FlexTouch 200 UNIT/ML 36 u Subcutaneous daily for 90 days transition from [facility] Aug, Active inject 50 [IU] by ross bcutaneous injection once daily Tresiba FlexTouch 200 UNIT/ML 50 u Subcutaneous daily Titrate to 60 u once daily, has written instructions Active 3 ml insulin glargine 100 unt/ml pen injector (20 sources) Insulin Analog Start: 02-05-2024 inject 8 [IU] by subcutaneous injection once daily in the morning Insulin Glargine (Basaglar Kwikpen U-100 Insulin) 100 unit/mL (3 mL) Insulin Pen Active 8 UNIT SUBCUT Every morning February 05, 2024 4:31pm Start: 04-10-2022 End: 02-05-2024 Insulin Glargine (Basaglar Kwikpen U-100 Insulin) 100 unit/mL (3 mL) Insulin Pen Discontinued 63 UNIT SUBCUT Twice daily April 10, 2022 12:00am February 05, 2024 4:36pm Start: 02-17-2020 End: 04-10-2022 Insulin Glargine (Basaglar [...] 100 UNIT/ML 58 units SQ bid Active Insulin, Aspart, Human (15 sources) Insulin Analog Start: 12-04-2019 Insulin Aspart [...] 0.05 mg oral tablet (20 sources) l-Thyroxine Start: 01-29-2024 take 50 ug by mouth once daily Levothyroxine Active 50 MCG PO Daily January 29, 2024 12:00am take 1 tablet by cedrick th once daily in the morning Levothyroxine Sodium 50 MCG 1 tablet in the morning on an empty stomach Orally Once a day Active take 1 tablet by cedrick th once daily in the morning linezolid 600 mg oral tablet (2 sources) Oxazolidinone Antibacterial Start: 02-05-2024 take 600 mg by mouth twice daily Linezolid Active 600 MG PO Twice daily 70 35 February 05, 2024 12:00am Start: 01-29-2024 End: 02-05-2024 take 600 mg intravenously every twelve hours Linezolid In Dextrose 5% Discontinued 600 MG IV Every 12 hours January 29, 2024 12:00am February 05, 2024 4:36pm nitroglycerin 0.4 mg sublingual tablet (20 sources) Nitrate Vasodilator Start: 04-10-2022 Nitroglyce rin (Nitrostat) 0.4 mg Tablet, Sublingual Active 0.4 MG SUBLINGUAL As Directed April 10, 2022 12:00am Start: 02-24-2019 End: 02-09-2020 Nitroglycerin Discontinued 0 .4 MG SUBLINGUAL every 5 to 15 minutes February 24, 2019 12:00am February 09, 2020 12:49pm Nitrostat 0.4 MG 1 tablet under the tongue Sublingual X1 prn chest pain, may repeat X1 in 5min PRN Active nystatin 100 unt/mg topical powder (1 source) Polyene Antifungal Start: 02-05-2024 Nystatin (N ystop) 100,000 unit/gram Powder Active 1 APPLIC TOPICAL Four times daily 0 February 05, 2024 12:00am Oxygen Concentrator (20 sources) Start: 12-19-2022 Oxygen Concent rator Nov, Active Start: 10-10-2021 Oxygen Concent rator Sep, Active predniSONE 50 mg oral tablet (20 sources) Start: 12-22-2022 take 1 tablet by cedrick th every twenty-four hours predniSONE 50 MG 1 tablet Orally Once a day for 5 day(s) Dec, Active Start: 05-30-2022 take 2 tablets by mo uth every twenty-four hours predniSONE 20 MG 2 tablets Orally Once a day for 5 day(s) May, Active vitamin b12 1 mg oral tablet (20 sources) Vitamin B12 Start: 06-06-2022 End: 06-06-2022 take 1 tablet by mouth once daily Cyanocobalamin (Vitamin B-12) (Vitamin B-12) 1,000 mcg Tablet Active 1000 MCG PO Daily June 06, 2022 12:07pm take 1 tablet by cedrick every twenty-four [...] Walker - as di rected Aug, Active Completed/Discontinued Medications Medication Drug Class(es) Dates Sig (Normalized) Sig (Original) acetaminophen 300 mg / codeine phosphate 30 mg oral tablet (14 sources) Opioid Agonist Start: 02-09-2020 End: 04-10-2022 take 2 tablets by mouth twice daily Acetaminophen-Codei ne (Tylenol-Codeine #3) 300-30 mg Tablet Discontinued 2 TAB PO Twice daily February 09, 2020 12:00am April 10, 2022 3:04pm Start: 02-24-2019 End: 12-04-2019 take 1 tablet by mouth every four hours Acetaminophen-Codeine Discontinued 1 TAB PO Q4H February 24, 2019 12:00am December 04, 2019 1:02pm albuterol 0.833 mg/ml / ipratropium bromide 0.167 mg/ml inhalation solution (15 sources) Anticholinergic, beta2-Adrenergic Agonist Start: 02-24-2019 End: 07-31-2019 Ipratropium-Albuterol Discontinued 3 ML INHALATION every 6 to 8 hours February 24, 2019 12:00am July 31, 2019 8:19am Start: 02-24-2019 End: 02-09-2020 take 1 mL by inhalation every eight hours Ipratropium-Albuterol Discontinued 3 ML INHALATION Q8H February 24, 2019 12:00am February 09, 2020 12:49pm 2 ml amikacin 250 mg/ml injection (1 source) Aminoglycoside Antibacterial Start: 01-29-2024 End: 02-05-2024 inject 250 mg by intramuscular injection every twelve hours Amikacin Discontinued 250 MG IM Every 12 hours January 29, 2024 12:00am February 05, 2024 4:36pm bumetanide 1 mg oral tablet (20 sources) Loop Diuretic Start: 04-10-2022 End: 02-05-2024 take 2 mg by mouth twice daily Bumetanide Discontinued 2 MG PO Twice daily April 10, 2022 12:00am February 05, 2024 4:36pm Start: 04-10-2022 take 1 mg by mouth twice daily Bumetanide Active 1 MG PO Twice daily April 09, 2022 11:00pm take 1 tablet by cedrick th every twelve hours Bumetanide 2 MG 1 tablet Orally TWICE A DAY Active cefdinir 300 mg oral capsule (20 sources) Cephalosporin Antibacterial Start: 07-30-2023 take 1 capsule by mouth every twelve hours Cefdinir 300 MG 1 Capsule Orally twice a day for 7 days Jul, Not-Taking/PRN cefTRIAXone 1000 mg injection (20 sources) Cephalosporin Antibacterial Start: 01-29-2024 End: 02-05-2024 take 1 g intravenously once daily Ceftriaxone Discontinued 1 GM IV Daily January 29, 2024 12:00am February 05, 2024 4:36pm Start: 10-02-2014 Rocephin 500 m g Sep, 1000 mg cefuroxime 500 mg oral tablet (10 sources) Cephalosporin Antibacterial take 1 tablet by mouth every twelve hours Cefuroxime Axetil 500 MG 1 tablet Orally every 12 hrs Not-Taking dapagliflozin 10 mg oral tablet (20 sources) Sodium-Glucose Cotransporter 2 Inhibitor Start: 02-14-20 End: 02-05-20 take 1 tablet by mouth once daily Dapagliflozin Propanediol (Farxiga) 10 mg tablet Discontinued 10 MG PO Daily February 13, 2023 12:00am February 05, 2024 4:36pm digoxin 0.125 mg oral tablet (20 sources) Cardiac Glycoside Start: 04-10-20 End: 02-05-20 take 125 ug by mouth once daily Digoxin Discontinued 125 MCG PO Daily April 10, 2022 12:00am February 05, 2024 4:36pm Start: 02-17-2020 End: 04-10-2022 Digoxin Discontinued 0.125 M G PO Q48H 0 February 17, 2020 12:15pm April 10, 2022 3:04pm Start: 02-24-2019 End: 02-17-2020 take 0.125 mg by mouth once daily Digoxin Discontinued 0.125 MG PO Daily February 24, 2019 12:00am February 17, 2020 12:19pm Dulaglutide (Trulicity) 4.5 mg/0.5 mL Pen Injector (6 sources) Start: 04-10-2022 End: 02-05-2024 Dulaglutide (Trulicity) 4.5 mg/0.5 mL Pen Injector Discontinued 0 .ROUTE .COMPLEX April 10, 2022 12:00am February 05, 2024 4:36pm take as directed Start: 04-10-2022 Dulaglutide (T rulicity) 4.5 mg/0.5 mL Pen Injector Active 0 .ROUTE .COMPLEX April 10, 2022 12:00am take as directed Start: 04-10-2022 Dulaglutide (T rulicity) 4.5 mg/0.5 mL Pen Injector Active 0 .ROUTE .COMPLEX April 09, 2022 11:00pm take as directed empagliflozin 10 mg oral tablet (20 sources) [...] 24, 2019 12:00am July 31, 2019 8:19am furosemide 20 mg oral tablet (20 sources) Loop Diuretic Start: 02-13-2023 End: 02-05-2024 take 60 mg by mouth twice daily Furosemide Discontinued 60 MG PO Twice daily February 13, 2023 12:00am February 05, 2024 4:36pm Start: 02-09-2020 End: 04-10-2022 take 2 tablets [...] AM Active take 3 tablets by mo [facility] once in the evening Furosemide 20 MG 3 tablet Orally ONCE IN THE PM Active Hospital bed as directed (20 sources) Start: 06-18-2023 Hospital bed a s directed as directed May, Not-Taking/PRN Start: 06-18-2023 Start: 06-18-2023 Hospital bed a s directed as directed May, Active 3 ml insulin lispro 200 unt/ml pen injector (14 sources) Insulin Analog Start: 04-10-2022 End: 02-05-2024 Insulin Lispro (Humalog Kwikpen Insulin) 200 unit/mL (3 mL) Insulin Pen Discontinued 0 .ROUTE .COMPLEX April 10, 2022 12:00am February 05, 2024 4:36pm small meals-34 units, medium meal--36 units, large [...] units before lunch, 40 units before dinner ipratropium bromide 0.2 mg/ml inhalation solution (20 sources) Anticholinergic Start: 04-10-2022 End: 12-04-2022 Ipratropium [place] Discontinued SOLUTION April 10, 2022 12:00am December 04, 2022 2:05pm Ipratropium Brom jj 0.02 % USE 1 VIAL IN NEBULIZER 3 TIMES DAILY Active Ipratropium Brom jj 0.02 % USE 1 VIAL IN NEBULIZER 3 TIMES DAILY Not-Taking 24 hr isosorbide mononitrate 60 mg extended release oral tablet (8 sources) Nitrate Vasodilator Start: 02-24-2019 End: 04-10-2022 take 90 mg by mouth once daily Isosorbide Mononitrate Discontinued 90 MG PO Daily February 24, 2019 12:00am April 10, 2022 3:04pm Ketorolac (20 sources) Nonsteroidal Anti-inflammatory Drug, Cyclooxygenase Inhibitor Start: 07-26-2016 Toradol per 15 mg Jul, 60 mg levoFLOXacin 500 mg oral tablet (7 sources) Quinolone Antimicrobial Start: 02-17-2020 End: 03-12-2020 [...] 2019 12:00am February 17, 2020 12:19pm Magnesium (7 sources) Start: 02-24-2019 End: 07-31-2019 take 400 [...] Not-Taking metFORMIN hydrochloride 500 mg oral tablet (8 sources) Biguanide Start: 02-24-2019 End: 03-12-2020 take 1000 mg by mouth twice daily Metformin Discontinued 1000 MG PO Twice daily February 24, 2019 12:00am March 12, 2020 8:45am metOLazone 2.5 mg oral tablet (20 sources) Thiazide-like Diuretic Start: 02-13-2023 End: 02-05-2024 take 2.5 mg by mouth every week Metolazone Discontinued 2.5 MG PO every week February 13, 2023 12:00am February 05, 2024 4:36pm take 1 tablet by cedrick th every twenty-four hours metOLazone 2.5 MG 1 tablet Orally Once a day Active take 1 tablet by mouth every we k metOLazone 5 MG 1 tablet Orally once a week Active pantoprazole 40 mg delayed release oral tablet (7 sources) Proton Pump Inhibitor Start: 02-24-2019 End: 12-04-2019 take 40 mg by mouth once daily Pantoprazole Discontinued 40 MG PO Daily February 24, 2019 12:00am December 04, 2019 1:07pm potassium chloride 10 meq extended release oral tablet (20 sources) Start: 02-14-2023 End: 02-05-2024 Potassium Chloride (Klor-Con 10) 10 mEq Tablet Extended Release Discontinued 20 MEQ PO Daily February 14, 2023 6:16pm February 05, 2024 4:36pm Start: 04-10-2022 End: 02-14-2023 Potassium Chloride (Klor-Con [...] 12, 2020 8:46am take 2 tablets by [facility] every twenty-four hours sennosides, care home 8.6 mg oral tablet (7 sources) Start: 02-24-2019 End: 12-04-2019 take 8.6 mg by mouth once daily Sennosides Discontinued 8.6 MG PO Daily February 24, 2019 12:00am December 04, 2019 1:07pm silver sulfADIAZINE 10 mg/ml topical cream (20 sources) Sulfonamide Antibacterial Start: 09-28-2022 Silver sulfADIAZINE 1 % 1 application Externally Once a day for 10 days Sep, Not-Taking spironolactone 25 mg oral tablet (20 sources) Aldosterone Antagonist Start: 02-24-2019 take 60 mg by mouth once daily Spironolactone Active 60 MG Oral Daily February 24, 2019 6:40am Start: 02-24-2019 End: 02-05-2024 take 25 mg by mouth once daily Spironolactone Discontinued 25 MG PO Daily April 10, 2022 12:00am February 05, 2024 4:36pm sulfamethoxazole 800 mg / trimethoprim 160 mg oral tablet (7 sources) Dihydrofolate Reductase Inhibitor Antibacterial, Sulfonamide Antimicrobial Start: 07-31-2019 End: 12-04-2019 take 1 tablet by mouth twice daily Sulfamethoxazole-Trimethoprim Discontinued 1 TAB PO Twice daily July 31, 2019 12:00am December 04, 2019 11:50am traZODone hydrochloride 50 mg oral tablet (7 sources) Serotonin Reuptake Inhibitor Start: 02-24-2019 End: 12-04-2019 take 50 mg by mouth once daily Trazodone Discontinued 50 MG PO Daily February 24, 2019 12:00am December 04, 2019 1:08pm warfarin sodium 2.5 mg oral tablet (20 sources) Vitamin K Antagonist Start: 01-29-2024 End: 02-05-2024 take 2.5 mg by mouth once daily in the evening Warfarin Discontinued 2.5 MG PO Every evening January 29, 2024 12:00am February 05, 2024 4:36pm Start: 04-10-2022 End: 02-05-2024 Warfarin Discontinued 5 MG P O As Directed April 10, 2022 12:00am February 05, 2024 4:36pm Problems Active Problems Problem Classification Problem Date Documented Date Episodic/Chronic Abdominal pain (20 sources) Abdominal pain; 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: [Unspecified abdominal pain] Episodic Acquired foot deformities (1 source) Foot drop, left foot Episodic Acute and unspecified renal failure (18 sources) Acute renal failure syndrome; 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: [Acute kidney failure, unspecified] Onset: 2 04-10-2022 Episodic Administrative/social admission (10 sources) Dietary counseling and surveillance; 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: [Patient [...] breakdown of skin] Onset: 3 04-10-2022 Chronic Complications of surgical procedures or medical care (3 sources) Non-healing surgical wound; 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: [Other complications of procedures, not elsewhere classified, initial encounter] Onset: 4 01-29-2024 Episodic Conduction disorders (20 sources) Automatic implantable cardiac defibrillator in situ; 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: [Presence of automatic (implantable) cardiac defibrillator] Onset: 2 Chronic Congestive heart failure; nonhypertensive (20 sources) Chronic systolic heart failure; 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: [Chronic systolic (congestive) heart failure] Onset: 2 Resolved: 2 Chronic Coronary atherosclerosis and other heart disease (20 sources) Angina pectoris; 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: [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] Onset: [...] Diabetes mellitus; 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: [Type 2 diabetes mellitus] Onset: 4 04-10-2022 Chronic Diseases of white blood cells [...] acid-base balance] Onset: 2 02-13-2023 Episodic Gangrene (6 sources) Gangrene of left foot; 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: [Gangrene, [...] Onset: 1 Resolved: 2 Chronic Nutritional deficiencies (10 sources) Deficiency of other specified B group [...] of insulin] Episodic Other aftercare (9 sources) prison (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; 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: [LONGTERM CURRENT USE OF INSULIN] Onset: 1 Resolved: 2 Episodic Other aftercare (1 source) prison (current) use of aspirin; 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: [MEDICAL MANAGER CURRENT USE OF ASPIRIN] Onset: 3 Episodic Other aftercare (2 sources) Other grain scooper (current) drug therapy; 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: [OTH LONGTERM CURRENT DRUG THERAPY] Onset: 3 Episodic Other aftercare (5 sources) Encounter for therapeutic drug level monitoring; 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: [ENC THERAPEUTC DRUG LEVL MONITORING] Onset: 3 Episodic Other aftercare (1 source) molder (current) use of anticoagulants; 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: [LONGTERM CURRNT USE ANTICOAGULANTS] Onset: 3 Episodic Other [...] 1 Resolved: 2 Chronic Other gastrointestinal disorders (8 sources) Occult blood in stools; 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: [Other fecal abnormalities] 04-10-2022 Episodic Other gastrointestinal disorders (20 sources) Diarrhea; Translations: [Diarrhea, unspecified] Episodic Other hematologic conditions (5 sources) Raised cardiac enzyme or marker; Translations: [Other specified abnormalities of plasma proteins] 02-13-2023 Episodic Other hematologic conditions (2 sources) Other specified abnormalities of plasma proteins; Translations: [Other abnormal blood chemistry] 02-13-2023 Episodic Other hereditary and degenerative nervous system conditions (1 source) Other idiopathic peripheral autonomic neuropathy; Translations: [OTH IDIO PERIPH AUTONOM NEUROPATHY] Onset: 2 Chronic Other infections; including parasitic (7 sources) Local infection of wound; Translations: [Other injury of unspecified body region, initial encounter] 02-09-2020 Episodic Other injuries and conditions due to external causes (1 source) History of falling; Translations: [HISTORY OF FALLING] Onset: 3 Episodic Other injuries and conditions due to external causes (1 source) Unspecified injury of head, initial encounter; Translations: [UNSPECIFIED INJURY HEAD INITIAL ENC] Onset: 3 Episodic Other injuries and conditions due to external causes (2 sources) Other injury of unspecified body region, initial encounter; Translations: [Posttraumatic wound infection not elsewhere classified] Onset: 4 02-05-2024 Episodic Other liver diseases (1 source) Fatty (change of) liver, not elsewhere classified; Translations: [FATTY CHANGE LIVER NEC] Onset: 2 Chronic Other lower respiratory disease (7 sources) Pulmonary edema; Translations: [Chronic pulmonary edema] [...] 2 Chronic Respiratory failure; insufficiency; arrest (adult) (7 sources) Acute respiratory failure; Translations: [Acute respiratory [...] tachycardia; Translations: [Other ventricular tachycardia] Onset: 2 Unclassified (1 source) Acidosis, unspecified; Translations: [Acidosis, unspecified] Onset: 4 Urinary tract infections (1 source) Urinary tract [...] with autonomic dysfunction] Diabetes mellitus without complication (8 sources) Hyperglycemia; Translations: [Hyperglycemia, unspecified] Onset: 02-13-2023 02-13-2023 Episodic Open wounds of extremities (1 [...] conditions (not mental disorders or infectious disease) (8 sources) Serum creatinine raised; Translations: [Other specified [...] Test Name Value Interpretation Reference Range Facility Albumin [Mass/volume] in Ser um or Plasma by Bromocresol green (BCG) dye binding methoOrdered By: Farhan Hudson on 02-05-2024 Albumin BCG dye [Mass/Vol] 2.4 g/dL 3.5-5.7 [facility] Basophils Auto (Bld) [#/Vol] Ordered By: Swathi Burnham on 02-05-2024 Basophils (Bld) [#/Vol] 0.1 10*3/uL 0.0-0.2 [facility] Basophils/100 WBC Auto (Bld) Ordered By: Swathi Burnham on 02-05-2024 Basophils/100 WBC (Bld) 0.6 % . [facility] Calcium [Mass/volume] in Ser um or PlasmaOrdered By: Farhan Hudson on 02-05-2024 Calcium [Mass/Vol] 7.0 mg/dL 8.6-10.3 [facility] Capillary blood glucose mike urement by glucometer (mass/volume)Ordered By: Swathi Burnham on 02-05-2024 Glucose [Mass/Vol] 256 mg/dL Normal [facility] Comment on above: Random Glucose Refer ence Range is dependent on time and content of last meal. Glucose of more than 200 mg/dL in a nonstressed, ambulatory subject supports the diagnosis of Diabetes Mellitus. Result Comment: [facility] Glucose Reference Range is dependent on time and content of last meal. Glucose of more than 200 mg/dL in a nonstressed, ambulatory subject supports the diagnosis of Diabetes Mellitus. Performed By: #### C BC, BMP #### [address] Carbon dioxide, total [Moles /volume] in Serum or PlasmaOrdered By: Farhan Hudson on 02-05-2024 CO2 [Moles/Vol] 27.6 mmol/L 21.0-31.0 [facility] Chloride [Moles/volume] in S mary or PlasmaOrdered By: Farhan Hudson on 02-05-2024 Chloride [Moles/Vol] 95 mmol/L 98-107 [facility] Complete Blood Count Auto Di ffon 02-05-2024 Basophils (Bld) [#/Vol] 0.1 10*3/uL Normal 0.0-0.2 [facility] Comment on above: Result Comment: PERF ORMED BY: [place] [address] PATHOLOGIST [employer] RAFA BYRNE M.D. Performed By: #### C BC, BMP #### [address] Basophils/100 WBC (Bld) 0.6 % Normal . [facility] Comment on above: Performed By: #### C BC, BMP #### [address] Eosinophils (Bld) [#/Vol] 0.4 10*3/uL Normal 0.0-0.45 [facility] Comment on above: Performed By: #### C BC, BMP #### [place] [address] [place] Eosinophils/100 WBC (Bld) 5.0 % Normal . [facility] Comment on above: Performed By: #### C BC, BMP #### [address] Erythrocyte distribution width (RBC) [Ratio] 17.7 % High 12.0-14.8 [facility] Comment on above: Performed By: #### C BC, BMP #### [address] Hematocrit (Bld) [Volume fraction] 22.6 % Low 38.8-50.0 [facility] Comment on above: Performed By: #### C BC, BMP #### [address] Hemoglobin (Bld) [Mass/Vol] 7.6 g/dL Low 13.0-17.0 [facility] Comment on above: Performed By: #### C BC, BMP #### [facility] [address] [place] [address] [place] Lymphocytes (Bld) [#/Vol] 1.3 10*3/uL Normal 1.00-4.8 [facility] Comment on above: Performed By: #### C BC, BMP #### [facility] [address] Lymphocytes/100 WBC (Bld) 14.7 % Normal . [facility] Comment on above: Performed By: #### C BC, BMP #### [facility] [address] MCH (RBC) [Entitic mass] 26.6 pg Low 27.5-35.2 [facility] Comment on above: Performed By: #### C BC, BMP #### [facility] [address] MCV (RBC) [Entitic vol] 79.6 fL Low 83.5-101 [facility] Comment on above: Performed By: #### C BC, BMP #### [facility] [address] Mean Corpuscular HGB Conc 33.4 g/dL Normal 32.5-35.6 [facility] Comment on above: Performed By: #### C BC, BMP #### [facility] [address] Monocytes (Bld) [#/Vol] 0.5 10*3/uL Normal 0.0-0.8 [facility] Comment on above: Performed By: #### C BC, BMP #### [facility] [address] [place] [address] [place] Monocytes/100 WBC (Bld) 6.1 % Normal . [facility] Comment on above: Performed By: #### C BC, BMP #### [facility] [address] Neutrophils (Bld) [#/Vol] 6.6 10*3/uL Normal 1.8-7.7 [facility] Comment on above: Performed By: #### C BC, BMP #### [facility] [address] Neutrophils/100 WBC (Bld) 73.6 % Normal . [facility] Comment on above: Performed By: #### C MAHAD, BMP #### [facility] [address] NRBC% 0.0 /100{WBC} Normal 0-0.5 [facility] Comment on above: Performed By: #### C MAHAD, BMP #### [address] Platelet mean volume (Bld) [Entitic vol] 7.2 fL Normal 6.6-10.1 [facility] Comment on above: Performed By: #### C MAHAD, BMP #### [address] Platelets (Bld) [#/Vol] 180 10*3/uL Normal 150-450 [facility] Comment on above: Performed By: #### C MAHAD, BMP #### [address] RBC (Bld) [#/Vol] 2.84 10*6/uL Low 3.90-5.60 [facility] Comment on above: Performed By: #### C MAHAD, BMP #### [address] WBC (Bld) [#/Vol] 8.9 10*3/uL Normal 4.1-10.5 [facility] Comment on above: Performed By: #### C MAHAD, BMP #### [address] Creatinine [Mass/volume] in Serum or PlasmaOrdered By: Farhan Hudson on 02-05-2024 Creatinine [Mass/Vol] 2.63 mg/dL 0.70-1.30 [facility] Comment on above: Delta: 3.41 on 02/03 /24-0600 Eosinophils Auto (Bld) [#/Vo l]Ordered By: Swathi Burnham on 02-05-2024 Eosinophils (Bld) [#/Vol] 0.4 10*3/uL 0.0-0.45 [facility] Eosinophils/100 WBC Auto (Bl d)Ordered By: Swathi Burnham on 02-05-2024 Eosinophils/100 WBC (Bld) 5.0 % . [facility] Erythrocyte distribution wid th Auto (RBC) [Ratio]Ordered By: Swathi Burnham on 02-05-2024 Erythrocyte distribution width (RBC) [Ratio] 17.7 % 12.0-14.8 [facility] Glucose Poct Glucometerson 0 02-05-2024 Commemt1 Glu2: Cleaned Meter Normal [facility] Comment on above: Result Comment: PERF ORMED BY: [place] [address] PATHOLOGIST [employer] RAFA BYRNE M.D. Performed By: #### C MAHAD, BMP #### [facility] [address] [place] [address] Performed By: #### G ALVARADO #### Point of Care testing , Glucose [Mass/Vol] 221 mg/dL Normal [facility] Comment on above: Result Comment: [facility] Glucose Reference Range is dependent on time and content of last meal. Glucose of more than 200 mg/dL in a nonstressed, ambulatory subject supports the diagnosis of Diabetes Mellitus. Performed By: #### G LULS #### Point of Care testing , Glucose [Mass/Vol] 166 mg/dL Normal [facility] Comment on above: Result Comment: [facility] Glucose Reference Range is dependent on time and content of last meal. Glucose of more than 200 mg/dL in a nonstressed, ambulatory subject supports the diagnosis of Diabetes Mellitus. PERFORMED BY: [place] [address] PATHOLOGIST [employer] RAFA BYRNE M.D. Performed By: #### C BC, BMP #### [facility] [address] [place], [place] [id number] [facility] Glucose [Mass/volume] in Ser um or PlasmaOrdered By: Farhan Hudson on 02-05-2024 Glucose [Mass/Vol] 162 mg/dL 70-100 [facility] Comment on above: ADA recommended refe rence rangeRandom Glucose Reference Range is dependent on time and content of last meal. Glucose of more than 200 mg/dL in a nonstressed, ambulatory subject supports the diagnosis of Diabetes Mellitus. Hematocrit Auto (Bld) [Volum e fraction]Ordered By: Swathi Burnham on 02-05-2024 Hematocrit (Bld) [Volume fraction] 22.7 % 38.8-50.0 [facility] Hemoglobin [Mass/volume] in BloodOrdered By: Swathi Burnham on 02-05-2024 Hemoglobin (Bld) [Mass/Vol] 7.5 g/dL 13.0-17.0 [facility] Hemoglobin and Hematocriton 02-05-2024 Hematocrit (Bld) [Volume fraction] 22.7 % Low 38.8-50.0 [facility] Comment on above: Result Comment: PERF ORMED BY: [place] [address] PATHOLOGIST [employer] RAFA BYRNE M.D. Performed By: #### H H #### [facility] [address] [place] [address] Hemoglobin (Bld) [Mass/Vol] 7.5 g/dL Low 13.0-17.0 [facility] Comment on above: Performed By: #### H H #### [facility] [address] [place] [address] [place] Leukocytes [#/volume] correc morris for nucleated erythrocytes in Blood by Automated counOrdered By: Swathi Burnham on 02-05-2024 WBC corrected for nucl RBC Auto (Bld) [#/Vol] 8.9 10*3/uL 4.1-10.5 [facility] Lymphocytes Auto (Bld) [#/Vo l]Ordered By: Swathi Burnham on 02-05-2024 Lymphocytes (Bld) [#/Vol] 1.3 10*3/uL 1.00-4.8 [facility] Lymphocytes/100 WBC Auto (Bl d)Ordered By: Swathi Burnham on 02-05-2024 Lymphocytes/100 WBC (Bld) 14.7 % . [facility] MCH Auto (RBC) [Entitic mass ]Ordered By: Swathi Burnham on 02-05-2024 MCH (RBC) [Entitic mass] 26.6 pg 27.5-35.2 [facility] MCHC Auto (RBC) [Mass/Vol]Or dered By: Swathi Burnham on 02-05-2024 MCHC (RBC) [Mass/Vol] 33.4 g/dL 32.5-35.6 [facility] MCV Auto (RBC) [Entitic vol] Ordered By: Swathi Burnham on 02-05-2024 MCV (RBC) [Entitic vol] 79.6 fL 83.5-101 [facility] Monocytes Auto (Bld) [#/Vol] Ordered By: Swathi Burnham on 02-05-2024 Monocytes (Bld) [#/Vol] 0.5 10*3/uL 0.0-0.8 [facility] Monocytes/100 WBC Auto (Bld) Ordered By: Swathi Burnham on 02-05-2024 Monocytes/100 WBC (Bld) 6.1 % . [facility] Neutrophils Auto (Bld) [#/Vo l]Ordered By: Swathi Burnham on 02-05-2024 Neutrophils (Bld) [#/Vol] 6.6 10*3/uL 1.8-7.7 [facility] Neutrophils/100 WBC Auto (Bl d)Ordered By: Swathi Burnham on 02-05-2024 Neutrophils/100 WBC (Bld) 73.6 % . [facility] No Panel InformationOrdered By: Swathi Burnham on 02-05-2024 Bedside Glucose Comment Glu2: cleaned meter [facility] No Panel InformationOrdered By: Farhan Hudson on 02-05-2024 Estimated GFR (CKD-EPI) 25.531 mL/Min [facility] Creatinine Clearance (Chem 30.17 [facility] Nucleated erythrocytes [Pres ence] in Blood by Automated countOrdered By: Swathi Burnham on 02-05-2024 Nucleated RBC Auto Ql (Bld) 0.0 /100{WBC} 0-0.5 [facility] Phosphate [Mass/volume] in S mary or PlasmaOrdered By: Farhan Hudson on 02-05-2024 Phosphate [Mass/Vol] 3.9 mg/dL 2.5-4.5 [facility] Platelet mean volume Auto (B ld) [Entitic vol]Ordered By: Swathi Burnham on 02-05-2024 Platelet mean volume (Bld) [Entitic vol] 7.2 fL 6.6-10.1 [facility] Platelets Auto (Bld) [#/Vol] Ordered By: Swathi Burnham on 02-05-2024 Platelets (Bld) [#/Vol] 180 10*3/uL 150-450 [facility] Potassium [Moles/volume] in Serum or PlasmaOrdered By: Farhan Hudson on 02-05-2024 Potassium [Moles/Vol] 3.7 mmol/L 3.5-5.1 [facility] RBC Auto (Bld) [#/Vol]Ordere d By: Swathi Burnhma on 02-05-2024 RBC (Bld) [#/Vol] 2.84 10*6/uL 3.90-5.60 [facility] Renal Function Panelon 02-04 Albumin [Mass/Vol] 2.4 g/dL Low 3.5-5.7 [facility] Comment on above: Performed By: #### G LULS #### Point of Care testing , Anion gap [Moles/Vol] 11.1 mmol/L Normal 6.0-15.0 [facility] Comment on above: Performed By: #### G LULS #### Point of Care testing , Calcium [Mass/Vol] 7.0 mg/dL Low 8.6-10.3 [facility] Comment on above: Performed By: #### G LULS #### Point of Care testing , Chloride [Moles/Vol] 95 mmol/L Low 98-107 [facility] Comment on above: Performed By: #### G LULS #### Point of Care testing , CO2 [Moles/Vol] 27.6 mmol/L Normal 21.0-31.0 [facility] Comment on above: Performed By: #### G EANLS #### Point of Care testing , Creatinine [Mass/Vol] 2.63 mg/dL Significan t change up 0.70-1.30 [facility] Comment on above: Performed By: #### G EANLS #### Point of Care testing , Creatinine Clr Calc Pharmacy 30.17 [facility] Comment on above: Result Comment: PERF ORMED BY: [facility] [address] [place] [address] PATHOLOGIST [employer] RAFA BYRNE M.D. Performed By: #### G EANLS #### Point of Care testing , GFR/1.73 sq M.predicted MDRD (S/P/Bld) [Vol rate/Area] 25.531 mL/min/{1.73_m2} Normal [facility] Comment on above: Performed By: #### G EANLS #### Point of Care testing , Glucose [Mass/Vol] 162 mg/dL High 70-100 [facility] Comment on above: Result Comment: [facility] Glucose Reference Range is dependent on time and content of last meal. Glucose of more than 200 mg/dL in a nonstressed, ambulatory subject supports the diagnosis of Diabetes Mellitus. ADA recommended reference range Performed By: #### G EANLS #### Point of Care testing , Phosphate [Mass/Vol] 3.9 mg/dL Normal 2.5-4.5 [facility] Comment on above: Performed By: #### G EANLS #### Point of Care testing , Potassium [Moles/Vol] 3.7 mmol/L Normal 3.5-5.1 [facility] Comment on above: Performed By: #### G EANLS #### Point of Care testing , Sodium [Moles/Vol] 130 mmol/L Low 136-145 [facility] Comment on above: Performed By: #### G EANLS #### Point of Care testing , Urea nitrogen [Mass/Vol] 35 mg/dL High 7-25 [facility] Comment on above: Performed By: #### G LULS #### Point of Care testing , Serum or plasma anion gap de terminationOrdered By: Farhan Hudson on 02-05-2024 Anion gap [Moles/Vol] 11.1 mmol/L 6.0-15.0 [facility] Sodium [Moles/volume] in Ser um or PlasmaOrdered By: Farhan Hudson on 02-05-2024 Sodium [Moles/Vol] 130 mmol/L 136-145 [facility] Urea nitrogen [Mass/volume] in Serum or PlasmaOrdered By: Farhan Hudson on 02-05-2024 Urea nitrogen [Mass/Vol] 35 mg/dL 7-25 [facility] WBC Auto (Bld) [#/Vol]Ordere d By: Swathi Burnham on 02-05-2024 WBC (Bld) [#/Vol] 8.9 10*3/uL 4.1-10.5 [facility] Glucose Poct Glucometerson 0 02-04-2024 Glucose [Mass/Vol] 268 mg/dL Normal [facility] Comment on above: Result Comment: [facility] Glucose Reference Range is dependent on time and content of last meal. Glucose of more than 200 mg/dL in a nonstressed, ambulatory subject supports the diagnosis of Diabetes Mellitus. PERFORMED BY: [place] [address] PATHOLOGIST [employer] RAFA BYRNE M.D. Performed By: #### C BC, BMP #### [address] Commemt1 Glu2: Cleaned Meter Normal [facility] Comment on above: Result Comment: PERF ORMED BY: [place] [address] PATHOLOGIST [employer] RAFA BYRNE M.D. Performed By: #### G LULS #### Point of Care testing , Glucose [Mass/Vol] 114 mg/dL Normal [facility] Comment on above: Result Comment: [facility] Glucose Reference Range is dependent on time and content of last meal. Glucose of more than 200 mg/dL in a nonstressed, ambulatory subject supports the diagnosis of Diabetes Mellitus. Performed By: #### G LULS #### Point of Care testing , Commemt1 Glu2: Cleaned Meter Normal [facility] Comment on above: Result Comment: PERF ORMED BY: [address] [place] [address] PATHOLOGIST [employer] RAFA BYRNE M.D. Performed By: #### G LULS #### Point of Care testing , Glucose [Mass/Vol] 188 mg/dL Normal [facility] Comment on above: Result Comment: [facility] Glucose Reference Range is dependent on time and content of last meal. Glucose of more than 200 mg/dL in a nonstressed, ambulatory subject supports the diagnosis of Diabetes Mellitus. Performed By: #### G LULS #### Point of Care testing , Renal Function Panelon 02-03 Albumin [Mass/Vol] 2.5 g/dL Low 3.5-5.7 [facility] Comment on above: Performed By: #### H H #### [facility] [address] [place] [address] Anion gap [Moles/Vol] 13.0 mmol/L Normal 6.0-15.0 [facility] Comment on above: Performed By: #### H H #### [facility] [address] [place] [address] [place] Calcium [Mass/Vol] 7.4 mg/dL Low 8.6-10.3 [facility] Comment on above: Performed By: #### H H #### [facility] [address] [place] [address] [place] Chloride [Moles/Vol] 93 mmol/L Low 98-107 [facility] Comment on above: Performed By: #### H H #### [facility] [address] [place] [address] [place] CO2 [Moles/Vol] 27.9 mmol/L Normal 21.0-31.0 [facility] Comment on above: Performed By: #### H H #### [address] [address] [place] Creatinine [Mass/Vol] 3.41 mg/dL Significan t change up 0.70-1.30 [facility] Comment on above: Performed By: #### H H #### [address] Creatinine Clr Calc Pharmacy 23.27 Normal [facility] Comment on above: Result Comment: PERF ORMED BY: [place] [address] PATHOLOGIST [employer] RAFA BYRNE M.D. Performed By: #### H H #### [address] GFR/1.73 sq M.predicted MDRD (S/P/Bld) [Vol rate/Area] 18.694 mL/min/{1.73_m2} Normal [facility] Comment on above: Performed By: #### H H #### [address] Glucose [Mass/Vol] 164 mg/dL High 70-100 [facility] Comment on above: Result Comment: [facility] Glucose Reference Range is dependent on time and content of last meal. Glucose of more than 200 mg/dL in a nonstressed, ambulatory subject supports the diagnosis of Diabetes Mellitus. ADA recommended reference range Performed By: #### H H #### [place] [address] [place] Phosphate [Mass/Vol] 5.6 mg/dL High 2.5-4.5 [facility] Comment on above: Performed By: #### H H #### [place] [address] [place] Potassium [Moles/Vol] 3.9 mmol/L Normal 3.5-5.1 [facility] Comment on above: Performed By: #### H H #### [address] Sodium [Moles/Vol] 130 mmol/L Low 136-145 [facility] Comment on above: Performed By: #### H H #### [address] Urea nitrogen [Mass/Vol] 50 mg/dL High 7 [facility] Comment on above: Performed By: #### H H #### [address] [place] aminotransferase [En zymatic activity/volume] in Serum or PlasmaOrdered By: Farhan Hudson on 02-03-2024 ALT [Catalytic activity/Vol] 14 U/L 7-52 [facility] Alkaline phosphatase [Enzyma tic activity/volume] in Serum or PlasmaOrdered By: Farhan Hudson on 02-03-2024 ALP [Catalytic activity/Vol] 157 U/L 34-104 [facility] Aspartate aminotransferase [ Enzymatic activity/volume] in Serum or PlasmaOrdered By: Farhan Hudson on 02-03-2024 AST [Catalytic activity/Vol] 15 U/L 13-39 [facility] Bilirubin.direct [Mass/volum e] in Serum or PlasmaOrdered By: Farhan Hudson on 02-03-2024 Bilirubin.direct [Mass/Vol] 0.20 mg/dL 0.03-0.18 [facility] Bilirubin.total [Mass/volume ] in Serum or PlasmaOrdered By: Farhan Hudson on 02-03-2024 Bilirubin [Mass/Vol] 0.6 mg/dL 0.3-1.0 [facility] Complete Blood Count Auto Di ffon 02-03-2024 Basophils (Bld) [#/Vol] 0.1 10*3/uL Normal 0.0-0.2 [facility] Comment on above: Result Comment: PERF ORMED BY: [place] [address] PATHOLOGIST [employer] RAFA BYRNE M.D. Performed By: #### C MAHAD BMP #### [place] [address] [place] Basophils/100 WBC (Bld) 1.2 % Normal . [facility] Comment on above: Performed By: #### C MAHAD BMP #### [place] [address] [place] Eosinophils (Bld) [#/Vol] 0.4 10*3/uL Normal 0.0-0.45 [facility] Comment on above: Performed By: #### C BC, BMP #### [address] Eosinophils/100 WBC (Bld) 4.3 % Normal . [facility] Comment on above: Performed By: #### C BC, BMP #### [address] Erythrocyte distribution width (RBC) [Ratio] 17.4 % High 12.0-14.8 [facility] Comment on above: Performed By: #### C BC, BMP #### [address] Hematocrit (Bld) [Volume fraction] 24.7 % Low 38.8-50.0 [facility] Comment on above: Performed By: #### C BC, BMP #### [address] Hemoglobin (Bld) [Mass/Vol] 8.3 g/dL Low 13.0-17.0 [facility] Comment on above: Performed By: #### C BC, BMP #### [address] Lymphocytes (Bld) [#/Vol] 1.7 10*3/uL Normal 1.00-4.8 [facility] Comment on above: Performed By: #### C BC, BMP #### [address] Lymphocytes/100 WBC (Bld) 17.0 % Normal . [facility] Comment on above: Performed By: #### C BC, BMP #### [address] MCH (RBC) [Entitic mass] 26.8 pg Low 27.5-35.2 [facility] Comment on above: Performed By: #### C BC, BMP #### [address] MCV (RBC) [Entitic vol] 79.7 fL Low 83.5-101 [facility] Comment on above: Performed By: #### C BC, BMP #### [facility] [address] Mean Corpuscular HGB Conc 33.6 g/dL Normal 32.5-35.6 [facility] Comment on above: Performed By: #### C BC, BMP #### [address] Monocytes (Bld) [#/Vol] 0.5 10*3/uL Normal 0.0-0.8 [facility] Comment on above: Performed By: #### C BC, BMP #### [address] Monocytes/100 WBC (Bld) 5.3 % Normal . [facility] Comment on above: Performed By: #### C BC, BMP #### [address] Neutrophils (Bld) [#/Vol] 7.3 10*3/uL Normal 1.8-7.7 [facility] Comment on above: Performed By: #### C MAHAD, BMP #### [address] Neutrophils/100 WBC (Bld) 72.2 % Normal . [facility] Comment on above: Performed By: #### C BC, BMP #### [address] NRBC% 0.1 /100{WBC} Normal 0-0.5 [facility] Comment on above: Performed By: #### C BC, BMP #### [address] Platelet mean volume (Bld) [Entitic vol] 7.1 fL Normal 6.6-10.1 [facility] Comment on above: Performed By: #### C BC, BMP #### [address] Platelets (Bld) [#/Vol] 228 10*3/uL Normal 150-450 [facility] Comment on above: Performed By: #### C BC, BMP #### [facility] [address] RBC (Bld) [#/Vol] 3.10 10*6/uL Low 3.90-5.60 [facility] Comment on above: Performed By: #### C BC, BMP #### [facility] [address] WBC (Bld) [#/Vol] 10.1 10*3/uL Normal 4.1-10.5 [facility] Comment on above: Performed By: #### C BC, BMP #### [facility] [address] Ferritinon 02-03-2024 Ferritin [Mass/Vol] 208.4 ng/mL Normal 23.9-336.2 [facility] Comment on above: Performed By: #### C BC, BMP #### [facility] [address] Ferritin [Mass/volume] in Se rum or PlasmaOrdered By: Farhan Hudson on 02-03-2024 Ferritin [Mass/Vol] 208.4 ng/mL 23.9-336.2 [facility] Folate [Mass/volume] in Seru m or PlasmaOrdered By: Farhan Hudson on 02-03-2024 Folate [Mass/Vol] 9.7 ng/mL >5.9 [facility] Comment on above: Folate reference ran ge: >5.9 ng/mlThe WHO technical consultation on folate and vitamin [id number] has determined that folate concentrations lessthan 4 ng/ml are considered deficient. Globulin Calc (S) [Mass/Vol] Ordered By: Farhan Hudson on 02-03-2024 Globulin (S) [Mass/Vol] 3.7 g/dL [facility] Glucose Poct Glucometerson 0 02-03-2024 Glucose [Mass/Vol] 190 mg/dL Normal [facility] Comment on above: Result Comment: [place] Glucose Reference Range is dependent on time and content of last meal. Glucose of more than 200 mg/dL in a nonstressed, ambulatory subject supports the diagnosis of Diabetes Mellitus. PERFORMED BY: [place] [address] PATHOLOGIST [employer] RAFA BYRNE M.D. Performed By: #### G LULS #### Point of Care testing , Glucose [Mass/Vol] 235 mg/dL Normal [facility] Comment on above: Result Comment: [place] Glucose Reference Range is dependent on time and content of last meal. Glucose of more than 200 mg/dL in a nonstressed, ambulatory subject supports the diagnosis of Diabetes Mellitus. PERFORMED BY: [place] [address] PATHOLOGIST [employer] RAFA BYRNE M.D. Performed By: #### C BC, BMP #### [address] Glucose [Mass/Vol] 262 mg/dL Normal [facility] Comment on above: Result Comment: [facility] Glucose Reference Range is dependent on time and content of last meal. Glucose of more than 200 mg/dL in a nonstressed, ambulatory subject supports the diagnosis of Diabetes Mellitus. PERFORMED BY: [place] [address] PATHOLOGIST [employer] RAFA BYRNE M.D. Performed By: #### G LULS #### Point of Care testing , Glucose [Mass/Vol] 218 mg/dL Normal [facility] Comment on above: Result Comment: [facility] Glucose Reference Range is dependent on time and content of last meal. Glucose of more than 200 mg/dL in a nonstressed, ambulatory subject supports the diagnosis of Diabetes Mellitus. PERFORMED BY: [place] [address] PATHOLOGIST [employer] RAFA BYRNE M.D. Performed By: #### G LULS #### Point of Care testing , Hepatic Panelon 02-03-2024 Albumin [Mass/Vol] 2.4 g/dL Low 3.5-5.7 [facility] Comment on above: Performed By: #### C BC, BMP #### [address] Albumin/Globulin [Mass ratio] 0.6 {ratio} Normal [facility] Comment on above: Performed By: #### C BC, BMP #### [address] ALP [Catalytic activity/Vol] 157 U/L High 34-104 [facility] Comment on above: Performed By: #### C BC, BMP #### [address] ALT [Catalytic activity/Vol] 14 U/L Normal 7-52 [facility] Comment on above: Performed By: #### C BC, BMP #### [address] AST [Catalytic activity/Vol] 15 U/L Normal 13-39 [facility] Comment on above: Performed By: #### C BC, BMP #### [address] Bilirubin [Mass/Vol] 0.6 mg/dL Normal 0.3-1.0 [facility] Comment on above: Performed By: #### C BC, BMP #### [address] Bilirubin,Indirect 0.4 mg/dL Normal [facility] Comment on above: Performed By: #### C BC, BMP #### [address] Bilirubin.indirect [Mass/Vol] 0.20 mg/dL High 0.03-0.18 [facility] Comment on above: Performed By: #### C BC, BMP #### [address] Globulin (S) [Mass/Vol] 3.7 g/dL Normal [facility] Comment on above: Performed By: #### C BC, BMP #### [address] Protein [Mass/Vol] 6.1 g/dL Low 6.4-8.9 [facility] Comment on above: Performed By: #### C BC, BMP #### [facility] [address] [place] [address] [place] Iron [Mass/volume] in Serum or PlasmaOrdered By: Farhan Hudson on 02-03-2024 Iron [Mass/Vol] 169 ug/dL 50-212 [facility] Iron and TIBC Profileon 01-17 7 % Iron Saturation 87.6 % High 20-50 [facility] Comment on above: Performed By: #### C BC, BMP #### [facility] [address] [place] [address] [facility] Iron [Mass/Vol] 169 ug/dL Normal 50-212 [facility] Comment on above: Performed By: #### C BC, BMP #### [facility] [address] [place] [address] [facility] Total Iron Binding Capacity 193 ug/dL Low 255-450 [facility] Comment on above: Performed By: #### C BC, BMP #### [facility] [address] [place] [address] [facility] Transferrin [Mass/Vol] 138 mg/dL Low 203-362 [facility] Comment on above: Performed By: #### C BC, BMP #### [facility] [address] [place] [id number] [facility] Iron binding capacity [Mass/ volume] in Serum or PlasmaOrdered By: Farhan Hudson on 02-03-2024 Iron binding capacity [Mass/Vol] 193 ug/dL 255-450 [facility] Iron saturation [Mass Fracti on] in Serum or PlasmaOrdered By: Farhan Hudson on 02-03-2024 Iron saturation [Mass fraction] 87.6 % 20-50 [facility] Protein [Mass/volume] in Ser um or PlasmaOrdered By: Farhan Hudson on 02-03-2024 Protein [Mass/Vol] 6.1 g/dL 6.4-8.9 [facility] Renal Function Panelon 02-02 Anion gap [Moles/Vol] 10.2 mmol/L Normal 6.0-15.0 [facility] Comment on above: Performed By: #### C BC, BMP #### [facility] [address] [place] [address] [place] Calcium [Mass/Vol] 7.1 mg/dL Low 8.6-10.3 [facility] Comment on above: Performed By: #### C BC, BMP #### [facility] [address] [place] [address] [place] Chloride [Moles/Vol] 95 mmol/L Low 98-107 [facility] Comment on above: Performed By: #### C BC, BMP #### [facility] [address] [place] [address] [place] CO2 [Moles/Vol] 28.8 mmol/L Normal 21.0-31.0 [facility] Comment on above: Performed By: #### C BC, BMP #### [facility] [address] [place] [address] [place] Creatinine [Mass/Vol] 2.87 mg/dL Significan t change up 0.70-1.30 [facility] Comment on above: Performed By: #### C BC, BMP #### [facility] [address] [place] [address] [place] Creatinine Clr Calc Pharmacy 27.45 [facility] Comment on above: Performed By: #### C BC, BMP #### [facility] [address] [place] [address] [place] GFR/1.73 sq M.predicted MDRD (S/P/Bld) [Vol rate/Area] 22.991 mL/min/{1.73_m2} [facility] Comment on above: Performed By: #### C BC, BMP #### [facility] [address] [place] [address] [place] Glucose [Mass/Vol] 157 mg/dL High 70-100 [facility] Comment on above: Result Comment: [place] Glucose Reference Range is dependent on time and content of last meal. Glucose of more than 200 mg/dL in a nonstressed, ambulatory subject supports the diagnosis of Diabetes Mellitus. ADA recommended reference range Performed By: #### C BC, BMP #### [facility] [address] Phosphate [Mass/Vol] 5.0 mg/dL High 2.5-4.5 [facility] Comment on above: Performed By: #### C BC, BMP #### [facility] [address] Potassium [Moles/Vol] 4.0 mmol/L Normal 3.5-5.1 [facility] Comment on above: Performed By: #### C BC, BMP #### [facility] [address] Sodium [Moles/Vol] 130 mmol/L Low 136-145 [facility] Comment on above: Performed By: #### C BC, BMP #### [facility] [address] Urea nitrogen [Mass/Vol] 36 mg/dL High 7-25 [facility] Comment on above: Performed By: #### C MAHAD, BMP #### [facility] [address] Serum or plasma albumin/glob ulin mass ratioOrdered By: Farhan Hudson on 02-03-2024 Albumin/Globulin [Mass ratio] 0.6 {ratio} [facility] Serum or plasma non-glucuron idated bilirubin measurement (mass/volume)Ordered By: Farhan Hudson on 02-03-2024 Bilirubin.indirect [Mass/Vol] 0.4 mg/dL [facility] Transferrin [Mass/volume] in Serum or PlasmaOrdered By: Farhan Hudson on 02-03-2024 Transferrin [Mass/Vol] 138 mg/dL 203-362 [facility] Vit. B12/Folate Profileon Cobalamin (Vitamin B12) [Mass/Vol] 1412 pg/mL High 180-914 [facility] Comment on above: Performed By: #### C BC, BMP #### [facility] [address] [place] [id number] [facility] Folate 9.7 ng/mL Normal >5.9 [facility] Comment on above: Result Comment: Karen te reference range: >5.9 ng/ml The WHO technical consultation on folate and vitamin b12 deficiencies has determined that folate concentrations less than 4 ng/ml are considered deficient. PERFORMED BY: [place] [address] PATHOLOGIST [employer] RAFA BYRNE M.D. Performed By: #### C BC, BMP #### [facility] [address] [place] [address] Vitamin B12 ser/plasOrdered By: Farhan Hudson on 02-03-2024 Cobalamin (Vitamin B12) [Mass/Vol] 1412 pg/mL 180-914 [facility] Basic Metabolic Panelon 01-17 Anion gap [Moles/Vol] 13.4 mmol/L Normal 6.0-15.0 [facility] Comment on above: Performed By: #### P P #### [facility] [address] [place] [address] Calcium [Mass/Vol] 7.4 mg/dL Low 8.6-10.3 [facility] Comment on above: Performed By: #### P P #### [facility] [address] [place] [address] Chloride [Moles/Vol] 93 mmol/L Low 98-107 [facility] Comment on above: Performed By: #### P P #### [facility] [address] [place] [address] CO2 [Moles/Vol] 25.7 mmol/L Normal 21.0-31.0 [facility] Comment on above: Performed By: #### P P #### [facility] [address] [place] [address] Creatinine [Mass/Vol] 3.82 mg/dL Significan t change up 0.70-1.30 [facility] Comment on above: Performed By: #### P P #### [facility] [address] [place] [address] Creatinine Clr Calc Pharmacy 20.81 Normal [facility] Comment on above: Result Comment: PERF ORMED BY: [facility] [address] [place] [address] PATHOLOGIST [employer] RAFA BYRNE M.D. Performed By: #### P P #### [facility] [address] [place] [address] [place] GFR/1.73 sq M.predicted MDRD (S/P/Bld) [Vol rate/Area] 16.313 mL/min/{1.73_m2} Normal [facility] Comment on above: Performed By: #### P P #### [facility] [address] Glucose [Mass/Vol] 168 mg/dL High 70-100 [facility] Comment on above: Result Comment: [facility] Glucose Reference Range is dependent on time and content of last meal. Glucose of more than 200 mg/dL in a nonstressed, ambulatory subject supports the diagnosis of Diabetes Mellitus. ADA recommended reference range Performed By: #### P P #### [facility] [address] Potassium [Moles/Vol] 4.1 mmol/L Normal 3.5-5.1 [facility] Comment on above: Performed By: #### P P #### [facility] [address] Sodium [Moles/Vol] 128 mmol/L Low 136-145 [facility] Comment on above: Performed By: #### P P #### [facility] [address] Urea nitrogen [Mass/Vol] 51 mg/dL High 7-25 [facility] Comment on above: Performed By: #### P P #### [facility] [address] Complete Blood Count Auto Di ffon 02-02-2024 Basophils (Bld) [#/Vol] 0.1 10*3/uL Normal 0.0-0.2 [facility] Comment on above: Result Comment: PERF ORMED BY: [facility] [address] [place] [address] PATHOLOGIST [employer] RAFA BYRNE M.D. Performed By: #### P P #### [address] Basophils/100 WBC (Bld) 1.0 % Normal . [facility] Comment on above: Performed By: #### P P #### [address] Eosinophils (Bld) [#/Vol] 0.4 10*3/uL Normal 0.0-0.45 [facility] Comment on above: Performed By: #### P P #### [address] Eosinophils/100 WBC (Bld) 3.1 % Normal . [facility] Comment on above: Performed By: #### P P #### [address] Erythrocyte distribution width (RBC) [Ratio] 17.3 % High 12.0-14.8 [facility] Comment on above: Performed By: #### P P #### [address] Hematocrit (Bld) [Volume fraction] 26.9 % Low 38.8-50.0 [facility] Comment on above: Performed By: #### P P #### [address] Hemoglobin (Bld) [Mass/Vol] 8.8 g/dL Low 13.0-17.0 [facility] Comment on above: Performed By: #### P P #### [address] Lymphocytes (Bld) [#/Vol] 1.8 10*3/uL Normal 1.00-4.8 [facility] Comment on above: Performed By: #### P P #### [address] Lymphocytes/100 WBC (Bld) 14.8 % Normal . [facility] Comment on above: Performed By: #### P P #### [address] MCH (RBC) [Entitic mass] 26.1 pg Low 27.5-35.2 [facility] Comment on above: Performed By: #### P P #### [address] MCV (RBC) [Entitic vol] 79.6 fL Low 83.5-101 [facility] Comment on above: Performed By: #### P P #### [address] Mean Corpuscular HGB Conc 32.8 g/dL Normal 32.5-35.6 [facility] Comment on above: Performed By: #### P P #### [address] Monocytes (Bld) [#/Vol] 0.6 10*3/uL Normal 0.0-0.8 [facility] Comment on above: Performed By: #### P P #### [address] Monocytes/100 WBC (Bld) 5.2 % Normal . [facility] Comment on above: Performed By: #### P P #### [address] Neutrophils (Bld) [#/Vol] 9.4 10*3/uL High 1.8-7.7 [facility] Comment on above: Performed By: #### P P #### [address] Neutrophils/100 WBC (Bld) 75.9 % Normal . [facility] Comment on above: Performed By: #### P P #### [address] NRBC% 0.0 /100{WBC} Normal 0-0.5 [facility] Comment on above: Performed By: #### P P #### [address] Platelet mean volume (Bld) [Entitic vol] 7.2 fL Normal 6.6-10.1 [facility] Comment on above: Performed By: #### P P #### [facility] [address] [place] [address] [place] Platelets (Bld) [#/Vol] 276 10*3/uL Normal 150-450 [facility] Comment on above: Performed By: #### P P #### [facility] [address] RBC (Bld) [#/Vol] 3.37 10*6/uL Low 3.90-5.60 [facility] Comment on above: Performed By: #### P P #### [facility] [address] WBC (Bld) [#/Vol] 12.4 10*3/uL High 4.1-10.5 [facility] Comment on above: Performed By: #### P P #### [facility] [address] Glucose Poct Glucometerson 0 02-02-2024 Glucose [Mass/Vol] 190 mg/dL Normal [facility] Comment on above: Result Comment: [place] om Glucose Reference Range is dependent on time and content of last meal. Glucose of more than 200 mg/dL in a nonstressed, ambulatory subject supports the diagnosis of Diabetes Mellitus. PERFORMED BY: [place] [address] PATHOLOGIST [employer] RAFA BYRNE M.D. Performed By: #### G LULS #### Point of Care testing , Commemt1 Glu2: Cleaned Meter Normal [facility] Comment on above: Result Comment: PERF ORMED BY: [place] [address] PATHOLOGIST [employer] RA[employer] BYRNE M.D. Performed By: #### G LULS #### Point of Care testing , Glucose [Mass/Vol] 164 mg/dL Normal [facility] Comment on above: Result Comment: [place] om Glucose Reference Range is dependent on time and content of last meal. Glucose of more than 200 mg/dL in a nonstressed, ambulatory subject supports the diagnosis of Diabetes Mellitus. Performed By: #### G LULS #### Point of Care testing , Commemt1 Glu2: Cleaned Meter Normal [facility] Comment on above: Result Comment: PERF ORMED BY: [address] [place] [address] PATHOLOGIST [employer] RAFA BYRNE M.D. Performed By: #### G LULS #### Point of Care testing , Glucose [Mass/Vol] 178 mg/dL Normal [facility] Comment on above: Result Comment: [facility] Glucose Reference Range is dependent on time and content of last meal. Glucose of more than 200 mg/dL in a nonstressed, ambulatory subject supports the diagnosis of Diabetes Mellitus. Performed By: #### G LULS #### Point of Care testing , Activated partial thrombopla stin time (aPTT) in platelet poor plasma by coagulation aOrdered By: Farhan Hudson on 02-01-2024 aPTT Coag (PPP) [Time] 36.7 s 25.1-36.5 [facility] Comment on above: A hematocrit value g reater than 55% may lead to inaccurate results in coagulation testing. Patients having hematocrit values >55% require a special collection tube for coagulation studies. Please contact the laboratory at [phone] for redraw instructions. Basic Metabolic Panelon 01-17 Anion gap [Moles/Vol] 13.6 mmol/L Normal 6.0-15.0 [facility] Comment on above: Performed By: #### P P #### [facility] [address] [place] [address] [place] Calcium [Mass/Vol] 7.0 mg/dL Low 8.6-10.3 [facility] Comment on above: Performed By: #### P P #### [facility] [address] [place] [address] [place] Chloride [Moles/Vol] 96 mmol/L Low 98-107 [facility] Comment on above: Performed By: #### P P #### [facility] [address] [place] [address] [place] CO2 [Moles/Vol] 27.5 mmol/L Normal 21.0-31.0 [facility] Comment on above: Performed By: #### P P #### [address] Creatinine [Mass/Vol] 2.98 mg/dL High 0.70-1.30 [facility] Comment on above: Performed By: #### P P #### [place] [address] [place] Creatinine Clr Calc Pharmacy 26.53 [facility] Comment on above: Result Comment: PERF ORMED BY: [place] [address] PATHOLOGIST [employer] RAFA BYRNE M.D. Performed By: #### P P #### [address] GFR/1.73 sq M.predicted MDRD (S/P/Bld) [Vol rate/Area] 21.976 mL/min/{1.73_m2} Normal [facility] Comment on above: Performed By: #### P P #### [address] Glucose [Mass/Vol] 169 mg/dL High 70-100 [facility] Comment on above: Result Comment: [place] Glucose Reference Range is dependent on time and content of last meal. Glucose of more than 200 mg/dL in a nonstressed, ambulatory subject supports the diagnosis of Diabetes Mellitus. ADA recommended reference range Performed By: #### P P #### [address] Potassium [Moles/Vol] 4.1 mmol/L Normal 3.5-5.1 [facility] Comment on above: Performed By: #### P P #### [address] Sodium [Moles/Vol] 133 mmol/L Low 136-145 [facility] Comment on above: Performed By: #### P P #### [address] Urea nitrogen [Mass/Vol] 35 mg/dL High 7-25 [facility] Comment on above: Performed By: #### P P #### [address] Coagulation Profileon 2023 aPTT Coag (Bld) [Time] 36.7 s High 25.1-36.5 [facility] Comment on above: Result Comment: A he matocrit value greater than 55% may lead to inaccurate results in coagulation testing. Patients having hematocrit values >55% require a special collection tube for coagulation studies. Please contact the laboratory at [phone] for redraw instructions. PERFORMED BY: [place] [address] PATHOLOGIST [employer] RAFA BYRNE M.D. Performed By: #### P P #### [address] Complete Blood Count Auto Di ffon 02-01-2024 Basophils (Bld) [#/Vol] 0.1 10*3/uL Normal 0.0-0.2 [facility] Comment on above: Result Comment: PERF ORMED BY: [place] [address] PATHOLOGIST [employer] RAFA BYRNE M.D. Performed By: #### P P #### [place] [address] [place] Basophils/100 WBC (Bld) 0.9 % Normal . [facility] Comment on above: Performed By: #### P P #### [place] [address] [place] Eosinophils (Bld) [#/Vol] 0.2 10*3/uL Normal 0.0-0.45 [facility] Comment on above: Performed By: #### P P #### [place] [address] [place] Eosinophils/100 WBC (Bld) 2.0 % Normal . [facility] Comment on above: Performed By: #### P P #### [address] Erythrocyte distribution width (RBC) [Ratio] 17.2 % High 12.0-14.8 [facility] Comment on above: Performed By: #### P P #### [address] Hematocrit (Bld) [Volume fraction] 25.7 % Low 38.8-50.0 [facility] Comment on above: Performed By: #### P P #### [address] Hemoglobin (Bld) [Mass/Vol] 8.7 g/dL Low 13.0-17.0 [facility] Comment on above: Performed By: #### P P #### [address] Lymphocytes (Bld) [#/Vol] 1.2 10*3/uL Normal 1.00-4.8 [facility] Comment on above: Performed By: #### P P #### [address] Lymphocytes/100 WBC (Bld) 10.2 % Normal . [facility] Comment on above: Performed By: #### P P #### [address] MCH (RBC) [Entitic mass] 26.8 pg Low 27.5-35.2 [facility] Comment on above: Performed By: #### P P #### [address] MCV (RBC) [Entitic vol] 79.4 fL Low 83.5-101 [facility] Comment on above: Performed By: #### P P #### [address] Mean Corpuscular HGB Conc 33.8 g/dL Normal 32.5-35.6 [facility] Comment on above: Performed By: #### P P #### [address] Monocytes (Bld) [#/Vol] 0.6 10*3/uL Normal 0.0-0.8 [facility] Comment on above: Performed By: #### P P #### [facility] [address] Monocytes/100 WBC (Bld) 4.9 % Normal . [facility] Comment on above: Performed By: #### P P #### [facility] [address] Neutrophils (Bld) [#/Vol] 9.4 10*3/uL High 1.8-7.7 [facility] Comment on above: Performed By: #### P P #### [address] Neutrophils/100 WBC (Bld) 82.0 % Normal . [facility] Comment on above: Performed By: #### P P #### [address] NRBC% 0.0 /100{WBC} Normal 0-0.5 [facility] Comment on above: Performed By: #### P P #### [address] Platelet mean volume (Bld) [Entitic vol] 7.3 fL Normal 6.6-10.1 [facility] Comment on above: Performed By: #### P P #### [address] Platelets (Bld) [#/Vol] 285 10*3/uL Normal 150-450 [facility] Comment on above: Performed By: #### P P #### [address] RBC (Bld) [#/Vol] 3.24 10*6/uL Low 3.90-5.60 [facility] Comment on above: Performed By: #### P P #### [address] WBC (Bld) [#/Vol] 11.4 10*3/uL High 4.1-10.5 [facility] Comment on above: Performed By: #### P P #### [facility] [address] [place] [address] Glucose Poct Glucometerson 0 02-01-2024 Glucose [Mass/Vol] 222 mg/dL Normal [facility] Comment on above: Result Comment: [place] Glucose Reference Range is dependent on time and content of last meal. Glucose of more than 200 mg/dL in a nonstressed, ambulatory subject supports the diagnosis of Diabetes Mellitus. PERFORMED BY: [place] [address] PATHOLOGIST [employer] RAFA BYRNE M.D. Performed By: #### P P #### [address] Glucose [Mass/Vol] 207 mg/dL Normal [facility] Comment on above: Result Comment: [place] Glucose Reference Range is dependent on time and content of last meal. Glucose of more than 200 mg/dL in a nonstressed, ambulatory subject supports the diagnosis of Diabetes Mellitus. PERFORMED BY: [place] [address] PATHOLOGIST [employer] RAFA BYRNE M.D. Performed By: #### G LULS #### Point of Care testing , Glucose [Mass/Vol] 243 mg/dL Normal [facility] Comment on above: Result Comment: [place] Glucose Reference Range is dependent on time and content of last meal. Glucose of more than 200 mg/dL in a nonstressed, ambulatory subject supports the diagnosis of Diabetes Mellitus. PERFORMED BY: [address] [place] [address] PATHOLOGIST [employer] RAFA BYRNE M.D. Performed By: #### P P #### [address] Glucose [Mass/Vol] 202 mg/dL Normal [facility] Comment on above: Result Comment: [place] Glucose Reference Range is dependent on time and content of last meal. Glucose of more than 200 mg/dL in a nonstressed, ambulatory subject supports the diagnosis of Diabetes Mellitus. PERFORMED BY: [place] [address] PATHOLOGIST [employer] RAFA BYRNE M.D. Performed By: #### G ALVARADO #### Point of Care testing , INR in Platelet poor plasma by Coagulation assayOrdered By: Farhan Hudson on 02-01-2024 INR Coag (PPP) [Relative time] 1.9 {INR} Normal [facility] Comment on above: INR Therapeutic Rang e A) Pre- and Peroperative OAT started two weeks before surgery. NOT HIP SURGERY: 1.5 - 2.5 HIP SURGERY: 2 - 3B) Primary and secondary prevention of venous THROMBOSIS: 2 - 3C) Active venous thrombosis, pulmonary embolismand prevention of recurrent venous thrombosis: 2 - 3D) Prevention of arterial thromboembolismincluding patients with mechanical heart valves: 3 - 4.5 Result Comment: INR Therapeutic Range A) Pre- [...] valves: 3 - 4.5 Performed By: #### P P #### [address] Prothrombin time (PT)Ordered By: Farhan Hudson on 02-01-2024 PT Coag (PPP) [Time] 21.5 s High 9.0-12.9 [facility] Comment on above: A hematocrit value g reater than 55% may lead to inaccurate results in coagulation testing. Patients having hematocrit values >55% require a special collection tube for coagulation studies. Please contact the laboratory at [phone] for redraw instructions. Result Comment: A he matocrit value greater than 55% may lead to inaccurate results in coagulation testing. Patients having hematocrit values >55% require a special collection tube for coagulation studies. Please contact the laboratory at [phone] for redraw instructions. Performed By: #### P P #### [address] Basic Metabolic Panelon 01-17 Anion gap [Moles/Vol] 11.9 mmol/L Normal 6.0-15.0 [facility] Comment on above: Performed By: #### C BC, BMP #### [facility] [address] Calcium [Mass/Vol] 7.0 mg/dL Low 8.6-10.3 [facility] Comment on above: Performed By: #### C BC, BMP #### [facility] [address] Chloride [Moles/Vol] 96 mmol/L Low 98-107 [facility] Comment on above: Performed By: #### C BC, BMP #### [facility] [address] CO2 [Moles/Vol] 26.9 mmol/L Normal 21.0-31.0 [facility] Comment on above: Performed By: #### C BC, BMP #### [facility] [address] Creatinine [Mass/Vol] 3.23 mg/dL Significan t change up 0.70-1.30 [facility] Comment on above: Performed By: #### C BC, BMP #### [place] [address] [place] Creatinine Clr Calc Pharmacy 24.52 [facility] Comment on above: Result Comment: PERF ORMED BY: [place] [address] PATHOLOGIST [employer] RAFA BYRNE M.D. Performed By: #### C BC, BMP #### [place] [address] [place] GFR/1.73 sq M.predicted MDRD (S/P/Bld) [Vol rate/Area] 19.951 mL/min/{1.73_m2} [facility] Comment on above: Performed By: #### C BC, BMP #### [facility] [address] [place] [address] [place] Glucose [Mass/Vol] 128 mg/dL High 70-100 [facility] Comment on above: Result Comment: [facility] Glucose Reference Range is dependent on time and content of last meal. Glucose of more than 200 mg/dL in a nonstressed, ambulatory subject supports the diagnosis of Diabetes Mellitus. ADA recommended reference range Performed By: #### C BC, BMP #### [facility] [address] Potassium [Moles/Vol] 3.8 mmol/L Normal 3.5-5.1 [facility] Comment on above: Performed By: #### C BC, BMP #### [facility] [address] Sodium [Moles/Vol] 131 mmol/L Low 136-145 [facility] Comment on above: Performed By: #### C BC, BMP #### [facility] [address] Urea nitrogen [Mass/Vol] 46 mg/dL High 7-25 [facility] Comment on above: Performed By: #### C BC, BMP #### [facility] [address] Complete Blood Count Auto Di ffon 01-31-2024 Basophils (Bld) [#/Vol] 0.1 10*3/uL Normal 0.0-0.2 [facility] Comment on above: Result Comment: PERF ORMED BY: [place] [address] PATHOLOGIST [employer] RAFA BYRNE M.D. Performed By: #### C BC, BMP #### [facility] [address] [place] [address] [place] Basophils/100 WBC (Bld) 0.7 % Normal . [facility] Comment on above: Performed By: #### C BC, BMP #### [facility] [address] Eosinophils (Bld) [#/Vol] 0.3 10*3/uL Normal 0.0-0.45 [facility] Comment on above: Performed By: #### C BC, BMP #### [facility] [address] Eosinophils/100 WBC (Bld) 2.3 % Normal . [facility] Comment on above: Performed By: #### C BC, BMP #### [facility] [address] Erythrocyte distribution width (RBC) [Ratio] 17.5 % High 12.0-14.8 [facility] Comment on above: Performed By: #### C BC, BMP #### [address] Hematocrit (Bld) [Volume fraction] 25.6 % Low 38.8-50.0 [facility] Comment on above: Performed By: #### C BC, BMP #### [address] Hemoglobin (Bld) [Mass/Vol] 8.6 g/dL Low 13.0-17.0 [facility] Comment on above: Performed By: #### C BC, BMP #### [address] Lymphocytes (Bld) [#/Vol] 1.3 10*3/uL Normal 1.00-4.8 [facility] Comment on above: Performed By: #### C BC, BMP #### [address] Lymphocytes/100 WBC (Bld) 10.4 % Normal . [facility] Comment on above: Performed By: #### C BC, BMP #### [place] [address] [place] MCH (RBC) [Entitic mass] 26.7 pg Low 27.5-35.2 [facility] Comment on above: Performed By: #### C BC, BMP #### [address] MCV (RBC) [Entitic vol] 79.0 fL Low 83.5-101 [facility] Comment on above: Performed By: #### C BC, BMP #### [address] [place] [address] [place] Mean Corpuscular HGB Conc 33.7 g/dL Normal 32.5-35.6 [facility] Comment on above: Performed By: #### C BC, BMP #### [facility] [address] Monocytes (Bld) [#/Vol] 0.6 10*3/uL Normal 0.0-0.8 [facility] Comment on above: Performed By: #### C BC, BMP #### [facility] [address] [place] [address] [place] Monocytes/100 WBC (Bld) 4.9 % Normal . [facility] Comment on above: Performed By: #### C MAHAD, BMP #### [address] Neutrophils (Bld) [#/Vol] 10.0 10*3/uL High 1.8-7.7 [facility] Comment on above: Performed By: #### C BC, BMP #### [address] Neutrophils/100 WBC (Bld) 81.7 % Normal . [facility] Comment on above: Performed By: #### C MAHAD, BMP #### [address] NRBC% 0.0 /100{WBC} Normal 0-0.5 [facility] Comment on above: Performed By: #### C BC, BMP #### [place] [address] [place] Platelet mean volume (Bld) [Entitic vol] 7.2 fL Normal 6.6-10.1 [facility] Comment on above: Performed By: #### C BC, BMP #### [place] [address] [place] Platelets (Bld) [#/Vol] 254 10*3/uL Normal 150-450 [facility] Comment on above: Performed By: #### C BC, BMP #### [place] [address] [place] RBC (Bld) [#/Vol] 3.24 10*6/uL Low 3.90-5.60 [facility] Comment on above: Performed By: #### C BC, BMP #### [facility] [address] WBC (Bld) [#/Vol] 12.2 10*3/uL High 4.1-10.5 [facility] Comment on above: Performed By: #### C BC, BMP #### [facility] [address] Glucose Poct Glucometerson 0 01-31-2024 Glucose [Mass/Vol] 116 mg/dL Normal [facility] Comment on above: Result Comment: [place] Glucose Reference Range is dependent on time and content of last meal. Glucose of more than 200 mg/dL in a nonstressed, ambulatory subject supports the diagnosis of Diabetes Mellitus. PERFORMED BY: [place] [address] PATHOLOGIST [employer] RAFA BYRNE M.D. Performed By: #### P P #### [address] Glucose [Mass/Vol] 191 mg/dL Normal [facility] Comment on above: Result Comment: [place] Glucose Reference Range is dependent on time and content of last meal. Glucose of more than 200 mg/dL in a nonstressed, ambulatory subject supports the diagnosis of Diabetes Mellitus. PERFORMED BY: [place] [address] PATHOLOGIST [employer] RAFA BYRNE M.D. Performed By: #### A BG #### Point of Care testing , Glucose [Mass/Vol] 145 mg/dL Normal [facility] Comment on above: Result Comment: [place] Glucose Reference Range is dependent on time and content of last meal. Glucose of more than 200 mg/dL in a nonstressed, ambulatory subject supports the diagnosis of Diabetes Mellitus. PERFORMED BY: [place] [address] PATHOLOGIST [employer] RAFA BYRNE M.D. Performed By: #### A BG #### Point of Care testing , Albumin Levelon 01-30-2024 Albumin [Mass/Vol] 2.3 g/dL Low 3.5-5.7 [facility] Comment on above: Result Comment: PERF ORMED BY: [facility] [address] [place] [address] PATHOLOGIST [employer] RAFA BYRNE M.D. Performed By: #### G LULS #### Point of Care testing , Basic Metabolic Panelon 01-17 Anion gap [Moles/Vol] 15.3 mmol/L High 6.0-15.0 [facility] Comment on above: Performed By: #### G LULS #### Point of Care testing , Calcium [Mass/Vol] 7.1 mg/dL Low 8.6-10.3 [facility] Comment on above: Performed By: #### G LULS #### Point of Care testing , Chloride [Moles/Vol] 95 mmol/L Low 98-107 [facility] Comment on above: Performed By: #### G LULS #### Point of Care testing , CO2 [Moles/Vol] 21.9 mmol/L Normal 21.0-31.0 [facility] Comment on above: Performed By: #### G LULS #### Point of Care testing , Creatinine [Mass/Vol] 4.57 mg/dL Significan t change up 0.70-1.30 [facility] Comment on above: Performed By: #### G LULS #### Point of Care testing , Creatinine Clr Calc Pharmacy 17.22 Normal [facility] Comment on above: Result Comment: PERF ORMED BY: [facility] [address] [place] [address] PATHOLOGIST [employer] RAFA BYRNE M.D. Performed By: #### G LULS #### Point of Care testing , GFR/1.73 sq M.predicted MDRD (S/P/Bld) [Vol rate/Area] 13.156 mL/min/{1.73_m2} Normal [facility] Comment on above: Performed By: #### G LULS #### Point of Care testing , Glucose [Mass/Vol] 144 mg/dL High 70-100 [facility] Comment on above: Result Comment: [facility] Glucose Reference Range is dependent on time and content of last meal. Glucose of more than 200 mg/dL in a nonstressed, ambulatory subject supports the diagnosis of Diabetes Mellitus. ADA recommended reference range Performed By: #### G LULS #### Point of Care testing , Potassium [Moles/Vol] 4.2 mmol/L Significan t change down 3.5-5.1 [facility] Comment on above: Performed By: #### G LULS #### Point of Care testing , Sodium [Moles/Vol] 128 mmol/L Low 136-145 [facility] Comment on above: Performed By: #### G LULS #### Point of Care testing , Urea nitrogen [Mass/Vol] 73 mg/dL Significant change up 7-25 [facility] Comment on above: Performed By: #### G LULS #### Point of Care testing , Complete Blood Count Auto Di ffon 01-30-2024 Basophils (Bld) [#/Vol] 0.1 10*3/uL Normal 0.0-0.2 [facility] Comment on above: Result Comment: PERF ORMED BY: [facility] [address] [place] [address] PATHOLOGIST [employer] RAFA BYRNE M.D. Performed By: #### G LULS #### Point of Care testing , Basophils/100 WBC (Bld) 1.0 % Normal . [facility] Comment on above: Performed By: #### G LULS #### Point of Care testing , Eosinophils (Bld) [#/Vol] 0.2 10*3/uL Normal 0.0-0.45 [facility] Comment on above: Performed By: #### G LULS #### Point of Care testing , Eosinophils/100 WBC (Bld) 1.7 % Normal . [facility] Comment on above: Performed By: #### G EANLS #### Point of Care testing , Erythrocyte distribution width (RBC) [Ratio] 17.3 % High 12.0-14.8 [facility] Comment on above: Performed By: #### G EANLS #### Point of Care testing , Hematocrit (Bld) [Volume fraction] 26.3 % Low 38.8-50.0 [facility] Comment on above: Performed By: #### G EANLS #### Point of Care testing , Hemoglobin (Bld) [Mass/Vol] 8.8 g/dL Low 13.0-17.0 [facility] Comment on above: Performed By: #### G EANLS #### Point of Care testing , Lymphocytes (Bld) [#/Vol] 1.3 10*3/uL Normal 1.00-4.8 [facility] Comment on above: Performed By: #### G EANLS #### Point of Care testing , Lymphocytes/100 WBC (Bld) 9.8 % Normal . [facility] Comment on above: Performed By: #### G EANLS #### Point of Care testing , MCH (RBC) [Entitic mass] 26.6 pg Low 27.5-35.2 [facility] Comment on above: Performed By: #### G EANLS #### Point of Care testing , MCV (RBC) [Entitic vol] 79.3 fL Low 83.5-101 [facility] Comment on above: Performed By: #### G EANLS #### Point of Care testing , Mean Corpuscular HGB Conc 33.5 g/dL Normal 32.5-35.6 [facility] Comment on above: Performed By: #### G ALVARADO #### Point of Care testing , Monocytes (Bld) [#/Vol] 0.5 10*3/uL Normal 0.0-0.8 [facility] Comment on above: Performed By: #### G EANLS #### Point of Care testing , Monocytes/100 WBC (Bld) 3.8 % Normal . [facility] Comment on above: Performed By: #### Georgette MCKOYLS #### Point of Care testing , Neutrophils (Bld) [#/Vol] 11.3 10*3/uL High 1.8-7.7 [facility] Comment on above: Performed By: #### G EANLS #### Point of Care testing , Neutrophils/100 WBC (Bld) 83.7 % Normal . [facility] Comment on above: Performed By: #### G EANLS #### Point of Care testing , NRBC% 0.0 /100{WBC} Normal 0-0.5 [facility] Comment on above: Performed By: #### G EANLS #### Point of Care testing , Platelet mean volume (Bld) [Entitic vol] 7.5 fL Normal 6.6-10.1 [facility] Comment on above: Performed By: #### G EANLS #### Point of Care testing , Platelets (Bld) [#/Vol] 279 10*3/uL Normal 150-450 [facility] Comment on above: Performed By: #### G EANLS #### Point of Care testing , RBC (Bld) [#/Vol] 3.32 10*6/uL Low 3.90-5.60 [facility] Comment on above: Performed By: #### G EANLS #### Point of Care testing , WBC (Bld) [#/Vol] 13.6 10*3/uL High 4.1-10.5 [facility] Comment on above: Performed By: #### G EANLS #### Point of Care testing , Glucose Poct Glucometerson 0 - Glucose [Mass/Vol] 220 mg/dL Normal [facility] Comment on above: Result Comment: [facility] Glucose Reference Range is dependent on time and content of last meal. Glucose of more than 200 mg/dL in a nonstressed, ambulatory subject supports the diagnosis of Diabetes Mellitus. PERFORMED BY: [facility] [address] [place] [address] PATHOLOGIST [employer] RAFA BYRNE M.D. Performed By: #### G EANLS #### Point of Care testing , Glucose [Mass/Vol] 176 mg/dL Normal [facility] Comment on above: Result Comment: [place] [facility] Glucose Reference Range is dependent on time and content of last meal. Glucose of more than 200 mg/dL in a nonstressed, ambulatory subject supports the diagnosis of Diabetes Mellitus. PERFORMED BY: [place] [address] PATHOLOGIST [employer] RAFA BYRNE M.D. Performed By: #### C BC, BMP #### [address] Glucose [Mass/Vol] 294 mg/dL Normal [facility] Comment on above: Result Comment: [place] [facility] Glucose Reference Range is dependent on time and content of last meal. Glucose of more than 200 mg/dL in a nonstressed, ambulatory subject supports the diagnosis of Diabetes Mellitus. PERFORMED BY: [place] [address] PATHOLOGIST [employer] RAFA BYRNE M.D. Performed By: #### A BG #### Point of Care testing , Glucose [Mass/Vol] 170 mg/dL Normal [facility] Comment on above: Result Comment: [place] Glucose Reference Range is dependent on time and content of last meal. Glucose of more than 200 mg/dL in a nonstressed, ambulatory subject supports the diagnosis of Diabetes Mellitus. PERFORMED BY: [place] [address] PATHOLOGIST [employer] RAFA BYRNE M.D. Performed By: #### A BG #### Point of Care testing , Hepatitis Acute Panelon - HBsAg Screen Negative Normal Negative [facility] Comment on above: Performed By: #### P P #### [address] Hepatitis A Antibody IgM Negative Normal Negative [facility] Comment on above: Performed By: #### P P #### [address] Hepatitis B Core Antibody IgM Negative Normal Negative [facility] Comment on above: Performed By: #### P P #### [address] Hepatitis C Virus Antibody Non-Reactive Normal Non Reactive [facility] Comment on above: Performed By: #### P P #### [address] Interpretation Hepatitis C Normal . [facility] Comment on above: Result Comment: Not infected with HCV unless early or acute infection is suspected (which may be delayed in an immunocompromised individual), or other evidence exists to indicate HCV infection. Performed By: #### P P #### [address] Hepatitis B Core Antibodyon 01-30-2024 Hepatitis B Core Antibody Negative Normal Negative [facility] Comment on above: Result Comment: Perf ormed at: [facility] [id number] [employer]ger: Alexis Winslow PhD, Phone: [phone] PERFORMED BY: [place] [address] PATHOLOGIST [employer] RAFA BYRNE M.D. Performed By: #### P P #### [address] Hepatitis B Surface Antibody on 01-30-2024 Hepatitis B Surface Antibody Non-Reactive Normal . [facility] Comment on above: Result Comment: Non Reactive: Inconsistent with immunity, less than 10 mIU/mL Reactive: Consistent with immunity, greater than 9.9 mIU/mL Performed By: #### P P #### [address] Hepatitis B virus surface Ab [Presence] in SerumOrdered By: Lia Law on 01-30-2024 HBV surface Ab Ql (S) Non-Reactive . [facility] Comment on above: Non Reactive: Incons istent with immunity, less than 10 mIU/mL Reactive: Consistent with immunity, greater than 9.9 mIU/mL Hepatitis B virus surface Ag [Presence] in Serum or Plasma by ImmunoassayOrdered By: Lia Law on 01-30-2024 HBV surface Ag IA Ql Negative Negative [facility] Hepatitis C virus IgG Ab [Pr esence] in Serum or Plasma by ImmunoassayOrdered By: Lia Law on 01-30-2024 HCV IgG IA Ql Non-Reactive Non Reactive [facility] Hepatitis C virus RNA [Units /volume] (viral load) in Serum or Plasma by RADHA with probOrdered By: Lia Law on 01-30-2024 HCV RNA RADHA+probe Qn N/A [facility] Hepatitis C virus RNA [log u nits/volume] (viral load) in Serum or Plasma by RADHA withOrdered By: Lia Law on 01-30-2024 HCV RNA RADHA+probe [Log units/Vol] N/A [facility] No Panel InformationOrdered By: Lia Law on 01-30-2024 Hepatitis A IgM Antibody Negative Negative [facility] Hepatitis B Core IgM Antibody Negative Negative [facility] Hepatitis B Core Total Antibody Negative Negative [facility] Comment on above: Performed at: [place] [id number] Director: Alexis Winslow PhD, Phone: [phone] Hepatitis C Interpretation See comment . [facility] Comment on above: Not infected with HC V unless early or acute infection issuspected (which may be delayed in an immunocompromisedindividual), or other evidence exists to indicate HCVinfection. Total Proteinon 01-30-2024 Protein [Mass/Vol] 6.6 g/dL Normal 6.4-8.9 [facility] Comment on above: Performed By: #### G LULS #### Point of Care testing , US arterial pvr rest Sebastian US arterial pvr rest [facility] [place] [address] Ultrasound Report Signed Patient: Adwoa Porter MR#: [id number] 7 : 1955 Acct:[id number] Age/Sex: 68 / M ADM Date: 01/28/24 Loc: Room: [address] [place] [address] Type: ADM IN Attending Dr: Farhan Hudson DO Ordering Provider: Raul Bravo MD Date of Service: 01/30/24 US/US arterial pvr rest LE: Foot wound Copies to: MD Farhan Guevara, DO LOWER EXTREMITY SEGMENTAL ARTERIAL DOPSCAN (PVR) INDICATION: Diminished peripheral pulses and vascular ulcers present. PROCEDURE: Right arm blood pressure is, left is 128 . Pressures throughout the right leg are cno at the low thigh, cno at the calf, 179 at the ankle using the posterior tibial artery and 128 at the ankle using the dorsalis pedis artery with ankle-brachial index of 1.00 1.40 . Pressures throughout the left leg are cno at the low thigh, 146 at the calf, 129 at the ankle using the posterior tibial artery and 232 at the ankle using the dorsalis pedis artery with ankle- brachial index of 1.81 1.01 . Wave forms by plethysmography are biphasic, bilaterally. 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 Quantitative information is difficult to obtain from this study. This patient has calcified vessels and therefore the CHARO is likely falsely elevated and unreliable. However, based on waveform analysis the patient has at least moderate to severe disease bilaterally. Impression dictated by: Raul Bravo MD01/30/2024 2:51 PM Dictation Location: [place] [address] Tech: Marline Ross Transcribed By: CONSUELO 01/30/24 1451 Dictated By: Raul Bravo MD 01/30/24 1450 Signed By: 01/30/24 1451 Normal [facility] Aerobic cultureOrdered By: Ayo Hudson on 01-29-2024 Bacteria identified Aer cx Nom (Unsp spec) 2 Days [facility] Amorphous urine sedimentOrde red By: Farhan Hudson on 01-29-2024 Amorphous sediment LM Ql (Urine sed) 2+ [LPF] [facility] Automated erythrocytes count in urine sediment (number/area)Ordered By: Farhan Hudson on 01-29-2024 RBC Auto (Urine sed) [#/Area] 20-49 [HPF] 0-4 [facility] Automated leukocytes count i n urine sediment (number/area)Ordered By: Farhan Hudson on 01-29-2024 WBC Auto (Urine sed) [#/Area] 5-9 [HPF] 0-4 [facility] Basic Metabolic Panelon 01-17 Anion gap [Moles/Vol] 18.7 mmol/L High 6.0-15.0 [facility] Comment on above: Performed By: #### G LULS #### Point of Care testing , Calcium [Mass/Vol] 7.3 mg/dL Low 8.6-10.3 [facility] Comment on above: Performed By: #### G LULS #### Point of Care testing , Chloride [Moles/Vol] 95 mmol/L Low 98-107 [facility] Comment on above: Performed By: #### G LULS #### Point of Care testing , CO2 [Moles/Vol] 15.4 mmol/L Low 21.0-31.0 [facility] Comment on above: Performed By: #### G LULS #### Point of Care testing , Creatinine [Mass/Vol] 5.37 mg/dL High 0.70-1.30 [facility] Comment on above: Performed By: #### G LULS #### Point of Care testing , Creatinine Clr Calc Pharmacy 14.89 [facility] Comment on above: Result Comment: PERF ORMED BY: [facility] [address] [place] [address] PATHOLOGIST [employer] RAFA BYRNE M.D. Performed By: #### G LULS #### Point of Care testing , GFR/1.73 sq M.predicted MDRD (S/P/Bld) [Vol rate/Area] 10.840 mL/min/{1.73_m2} [facility] Comment on above: Performed By: #### G LULS #### Point of Care testing , Glucose [Mass/Vol] 211 mg/dL High 70-100 [facility] Comment on above: Result Comment: [place] Glucose Reference Range is dependent on time and content of last meal. Glucose of more than 200 mg/dL in a nonstressed, ambulatory subject supports the diagnosis of Diabetes Mellitus. ADA recommended reference range Performed By: #### G LULS #### Point of Care testing , Potassium [Moles/Vol] 6.1 mmol/L Off scale high 3.5-5.1 [facility] Comment on above: Result Comment: Crit ical Result Called to and read back by: LEXI JOSEPH at: 01/29/2024 06:33:36 by:OSCAR Performed By: #### G LULS #### Point of Care testing , Sodium [Moles/Vol] 123 mmol/L Off scale low 136-145 [facility] Comment on above: Result Comment: Crit ical Result Called to and read back by: LEXI JOSEPH at: 01/29/2024 06:33:36 by:OSCAR Performed By: #### G LULS #### Point of Care testing , Urea nitrogen [Mass/Vol] 105 mg/dL High 7-25 [facility] Comment on above: Performed By: #### G LULS #### Point of Care testing , Bilirubin Test strip Ql (U)O rdered By: Farhan Hudson on 01-29-2024 Bilirubin Ql (U) Negative Negative [facility] Clostridium Difficileon 01-17 Clostridium Difficile Negative Normal Negative [facility] Comment on above: Order Comment: > or = to 3 loose/watery stools in the last 24 HRS? Y Is patient on promotility agents or tube feeding? N Result Comment: Test ing performed by RT-PCR PERFORMED BY: [place] [address] [place] [address] PATHOLOGIST [employer] RAFA BYRNE M.D. Performed By: #### A BG #### Point of Care testing , Coagulation Profileon 2023 aPTT Coag (Bld) [Time] 43.4 s High 25.1-36.5 [facility] Comment on above: Result Comment: A he matocrit value greater than 55% may lead to inaccurate results in coagulation testing. Patients having hematocrit values >55% require a special collection tube for coagulation studies. Please contact the laboratory at [phone] for redraw instructions. PERFORMED BY: [place] [address] [place] [address] PATHOLOGIST [employer] RAFA BYRNE M.D. Performed By: #### A BG #### Point of Care testing , INR Coag (PPP) [Relative time] 2.6 {INR} Normal [facility] Comment on above: Result Comment: INR Therapeutic [...] valves: 3 - 4.5 Performed By: #### A BG #### Point of Care testing , PT Coag (PPP) [Time] 29.2 s High 9.0-12.9 [facility] Comment on above: Result Comment: A he matocrit value greater than 55% may lead to inaccurate results in coagulation testing. Patients having hematocrit values >55% require a special collection tube for coagulation studies. Please contact the laboratory at [phone] for redraw instructions. Performed By: #### A BG #### Point of Care testing , Color Auto (U)Ordered By: Nidia Hudson on 01-29-2024 Color (U) Dark yellow Yellow [facility] Complete Blood Count Auto Di ffon 01-29-2024 Basophils (Bld) [#/Vol] 0.1 10*3/uL Normal 0.0-0.2 [facility] Comment on above: Result Comment: PERF ORMED BY: [facility] [address] [place] [address] PATHOLOGIST [employer] RAFA BYRNE M.D. Performed By: #### G LULS #### Point of Care testing , Basophils/100 WBC (Bld) 0.7 % Normal . [facility] Comment on above: Performed By: #### G LULS #### Point of Care testing , Eosinophils (Bld) [#/Vol] 0.2 10*3/uL Normal 0.0-0.45 [facility] Comment on above: Performed By: #### G LULS #### Point of Care testing , Eosinophils/100 WBC (Bld) 1.1 % Normal . [facility] Comment on above: Performed By: #### G ALVARADO #### Point of Care testing , Erythrocyte distribution width (RBC) [Ratio] 17.4 % High 12.0-14.8 [facility] Comment on above: Performed By: #### G EANLS #### Point of Care testing , Hematocrit (Bld) [Volume fraction] 29.5 % Low 38.8-50.0 [facility] Comment on above: Performed By: #### G ALVARADO #### Point of Care testing , Hemoglobin (Bld) [Mass/Vol] 9.9 g/dL Low 13.0-17.0 [facility] Comment on above: Performed By: #### G EANLS #### Point of Care testing , Lymphocytes (Bld) [#/Vol] 1.3 10*3/uL Normal 1.00-4.8 [facility] Comment on above: Performed By: #### Georgette MCKOYLS #### Point of Care testing , Lymphocytes/100 WBC (Bld) 6.8 % Normal . [facility] Comment on above: Performed By: #### Georgette CHILDERS #### Point of Care testing , MCH (RBC) [Entitic mass] 26.7 pg Low 27.5-35.2 [facility] Comment on above: Performed By: #### G ALVARADO #### Point of Care testing , MCV (RBC) [Entitic vol] 79.7 fL Low 83.5-101 [facility] Comment on above: Performed By: #### G ALVARADO #### Point of Care testing , Mean Corpuscular HGB Conc 33.5 g/dL Normal 32.5-35.6 [facility] Comment on above: Performed By: #### G EANLS #### Point of Care testing , Monocytes (Bld) [#/Vol] 0.5 10*3/uL Normal 0.0-0.8 [facility] Comment on above: Performed By: #### Georgette CHILDERS #### Point of Care testing , Monocytes/100 WBC (Bld) 2.7 % Normal . [facility] Comment on above: Performed By: #### G LULS #### Point of Care testing , Neutrophils (Bld) [#/Vol] 16.7 10*3/uL High 1.8-7.7 [facility] Comment on above: Performed By: #### G LULS #### Point of Care testing , Neutrophils/100 WBC (Bld) 88.7 % Normal . [facility] Comment on above: Performed By: #### G LULS #### Point of Care testing , NRBC% 0.0 /100{WBC} Normal 0-0.5 [facility] Comment on above: Performed By: #### G LULS #### Point of Care testing , Platelet mean volume (Bld) [Entitic vol] 7.8 fL Normal 6.6-10.1 [facility] Comment on above: Performed By: #### G EANLS #### Point of Care testing , Platelets (Bld) [#/Vol] 326 10*3/uL Normal 150-450 [facility] Comment on above: Performed By: #### G EANLS #### Point of Care testing , RBC (Bld) [#/Vol] 3.71 10*6/uL Low 3.90-5.60 [facility] Comment on above: Performed By: #### G ALVARADO #### Point of Care testing , WBC (Bld) [#/Vol] 18.8 10*3/uL High 4.1-10.5 [facility] Comment on above: Performed By: #### G LULS #### Point of Care testing , Dipstick and Microscopicon 0 01-29-2024 Amorphous Sediment,Urine 2+ Normal [facility] Comment on above: Order Comment: Name Collection Type:: Voided Performed By: #### A BG #### Point of Care testing , Appearance (U) Cloudy Critically abnormal Clear [facility] Comment on above: Order Comment: Name Collection Type:: Voided Performed By: #### A BG #### Point of Care testing , Bacteria,Urine Rare High None Seen [facility] Comment on above: Order Comment: Name Collection Type:: Voided Performed By: #### A BG #### Point of Care testing , Bilirubin,Urine Negative Normal Negative [facility] Comment on above: Order Comment: Name Collection Type:: Voided Performed By: #### A BG #### Point of Care testing , Color (U) Dark Yellow Critically abnormal Yellow [facility] Comment on above: Order Comment: Name Collection Type:: Voided Performed By: #### A BG #### Point of Care testing , Glucose Ql (U) 500 mg/dL High Normal [facility] Comment on above: Order Comment: Name Collection Type:: Voided Performed By: #### A BG #### Point of Care testing , Hyaline Casts,Urine 0-8 Normal 0-8 [facility] Comment on above: Order Comment: Name Collection Type:: Voided Performed By: #### A BG #### Point of Care testing , Ketones Ql (U) Trace High Negative [facility] Comment on above: Order Comment: Name Collection Type:: Voided Performed By: #### A BG #### Point of Care testing , Leukocyte esterase Test strip Ql (U) 3+ High Negative [facility] Comment on above: Order Comment: Name Collection Type:: Voided Performed By: #### A BG #### Point of Care testing , Nitrite,Urine Negative Normal Negative [facility] Comment on above: Order Comment: Name Collection Type:: Voided Performed By: #### A BG #### Point of Care testing , Occult Blood,Urine 3+ High Negative [facility] Comment on above: Order Comment: Name Collection Type:: Voided Result Comment: PERF ORMED BY: [facility] [address] [place] [address] PATHOLOGIST [employer] RAFA BYRNE M.D. Performed By: #### A BG #### Point of Care testing , pH (U) 5.0 [pH] Normal 5.0-9.0 [facility] Comment on above: Order Comment: Name Collection Type:: Voided Performed By: #### A BG #### Point of Care testing , Protein (U) [Mass/Vol] 100 mg/dL High Negative [facility] Comment on above: Order Comment: Name Collection Type:: Voided Performed By: #### A BG #### Point of Care testing , RBC,Urine 20-49 High 0-4 [facility] Comment on above: Order Comment: Name Collection Type:: Voided Performed By: #### A BG #### Point of Care testing , Specificy [place],Urine 1.019 Normal 1.001-1.03 0 [facility] Comment on above: Order Comment: Name Collection Type:: Voided Performed By: #### A BG #### Point of Care testing , Squamous Epithelial Cell,Urine 0-1 Normal 0-2 [facility] Comment on above: Order Comment: Name Collection Type:: Voided Performed By: #### A BG #### Point of Care testing , Urobilinogen,Urine Normal Normal Normal [facility] Comment on above: Order Comment: Name Collection Type:: Voided Performed By: #### A BG #### Point of Care testing , WBC,Urine 5-9 High 0-4 [facility] Comment on above: Order Comment: Name Collection Type:: Voided Performed By: #### A BG #### Point of Care testing , Yeast,Urine Budding Yeast Critically abnormal None Seen [facility] Comment on above: Order Comment: Name Collection Type:: Voided Result Comment: PERF ORMED BY: [place] [address] PATHOLOGIST [employer] RAFA BYRNE M.D. Performed By: #### A BG #### Point of Care testing , ECG 12 lead ECGon 01-29-2024 ECG 12 lead ECG [facility] [place] [address] Electrocardiograph Report Signed Patient: Adwoa Porter MR#: [id number] 7 : 1955 Acct:[id number] Age/Sex: 68 / M ADM Date: 01/28/24 Loc: Room: [address] [place] [address] Type: ADM IN Attending Dr: Farhan Hudson DO Ordering Provider: Farhan Hudson DO Date of Service: 01/29/2411/11/4 ECG/ECG 12 lead ECG: per order Copies to: Test Reason : Blood Pressure : / mmHG Vent. Rate : 087 BPM Atrial Rate : 078 BPM P-R Int : 000 ms QRS Dur : 156 ms QT Int : 424 ms P-R-T Axes : 000 266 081 degrees QTc Int : 510 ms Electronic ventricular pacemaker When compared with ECG of 13-FEB-2023 16:12, premature ventricular complexes are no longer present Vent. rate has decreased BY 4 BPM Confirmed by DAVID ROOT MD ([id number]) on 01/30/2024 12:02:53 PM Referred By: Electronically Signed By:DAVID ROOT MD Transcribed By: MUS Signed By David Root MD 0 01/30/24 1202 Normal [facility] Glucose Poct Glucometerson 0 01-29-2024 Glucose [Mass/Vol] 256 mg/dL Normal [facility] Comment on above: Result Comment: [facility] Glucose Reference Range is dependent on time and content of last meal. Glucose of more than 200 mg/dL in a nonstressed, ambulatory subject supports the diagnosis of Diabetes Mellitus. PERFORMED BY: [place] [id number] PATHOLOGIST [employer] RAFA BYRNE M.D. Performed By: #### A BG #### Point of Care testing , Glucose [Mass/Vol] 236 mg/dL Normal [facility] Comment on above: Result Comment: [facility] Glucose Reference Range is dependent on time and content of last meal. Glucose of more than 200 mg/dL in a nonstressed, ambulatory subject supports the diagnosis of Diabetes Mellitus. PERFORMED BY: [address] [address] PATHOLOGIST [employer] RAFA BYRNE M.D. Performed By: #### G LULS #### Point of Care testing , Glucose [Mass/Vol] 214 mg/dL Normal [facility] Comment on above: Result Comment: [facility] Glucose Reference Range is dependent on time and content of last meal. Glucose of more than 200 mg/dL in a nonstressed, ambulatory subject supports the diagnosis of Diabetes Mellitus. PERFORMED BY: [address] [place] [address] PATHOLOGIST [employer] RAFA BYRNE M.D. Performed By: #### G LULS #### Point of Care testing , Glucose [Mass/Vol] 273 mg/dL Normal [facility] Comment on above: Result Comment: [facility] Glucose Reference Range is dependent on time and content of last meal. Glucose of more than 200 mg/dL in a nonstressed, ambulatory subject supports the diagnosis of Diabetes Mellitus. PERFORMED BY: [address] [place] [address] PATHOLOGIST [employer] RAFA YBRNE M.D. Performed By: #### G LULS #### Point of Care testing , Glucose [Mass/Vol] 255 mg/dL Normal [facility] Comment on above: Result Comment: [facility] Glucose Reference Range is dependent on time and content of last meal. Glucose of more than 200 mg/dL in a nonstressed, ambulatory subject supports the diagnosis of Diabetes Mellitus. PERFORMED BY: [address] [place] [address] PATHOLOGIST [employer] RAFA BYRNE M.D. Performed By: #### G LULS #### Point of Care testing , Ketones Auto test strip (U) [Mass/Vol]Ordered By: Farhan Hudson on 01-29-2024 Ketones (U) [Mass/Vol] Trace Negative [facility] - UrinalysisOrder ed By: Farhan Hudson on 01-29-2024 Hyaline casts LM Ql (Urine sed) 0-8 [LPF] 0-8 [facility] Nitrite Test strip Ql (U)Ord ered By: Farhan Hudson on 01-29-2024 Nitrite Ql (U) Negative Negative [facility] Protein Auto test strip (U) [Mass/Vol]Ordered By: Farhan Hudson on 01-29-2024 Protein (U) [Mass/Vol] 100 mg/dL Negative [facility] Specific gravity Auto test s trip (U) [Rel density]Ordered By: Farhan Hudson on 01-29-2024 Specific gravity (U) [Rel density] 1.019 1.001-1.03 0 [facility] Squamous epithelial cells de tection in urine sediment by light microscopyOrdered By: Farhan Hudson on 01-29-2024 Epithelial cells.squamous LM Ql (Urine sed) 0-1 [HPF] 0-2 [facility] Superficial Wound Cultureon 01-29-2024 Superficial Wound Culture Light Normal Skin Cedric 2 Days PERFORMED BY: [facility] [address] [place] [address] PATHOLOGIST [employer] RA[employer] BYRNE M.D. Normal [facility] Comment on above: Performed By: #### C BC, BMP #### [facility] [address] Urine Cultureon 01-29-2024 Bacteria identified Cx Nom (U) Results called at 0841 on 02/02/24 ORGANISM: Klebsiella variicola (O:KLEVAR) [place] Count 15,000 Organism Comments Multidrug Resistant Organism Aerobic [employer] Charge (NMIC56) SUSCEPTIBILITY ORGANISM: O:KLEVAR ANTIBIOTIC INTERPRETATION [employer] Amikacin S <16 Amoxacillin/K Clavulanate R >16 Ampicillin/Sulbactam R >16 Aztreonam R >16 Cefazolin R >16 Cefepime R >16 Ceftazidime R >16 Ceftriaxone R >32 Cefuroxime R >16 Ciprofloxacin R >2 Ertapenem S <0.5 Gentamicin R >8 Levofloxacin R 2 Meropenem S <1 Nitrofurantoin S <32 Piperacillin/Tazobactam R >64 Tetracycline R >8 Tigecycline I 4 Tobramycin R >8 Trimethoprim/Sulfamethoxaz ole R >2 S = SUSCEPTIBLE I = INTERMEDIATE R = RESISTANT BLANK = DATA NOT AVAILABLE, OR DRUG NOT ADVISABLE OR TESTED R* = RESISTANCE DUE TO EXTENDED SPECTRUM BETA-LACTAMASES ESBL = EXTENDED SPECTRUM BETA-LACTAMASE TFG = THYMIDINE-DEPENDENT STRAIN DIPIKA = BETA-LACTAMASE POSITIVE IB = INDUCIBLE BETA-LACTAMASE. APPEARS IN PLACE OF 'S' WITH SPECIES KNOWN TO POSSESS INDUCIBLE BETA-LACTAMASES. POTENTIALLY THEY MAY BECOME RESISTANT TO ALL B-LACTAM DRUGS. PERFORMED BY: [facility] [place] [address] PATHOLOGIST [employer] RA[employer] BYRNE M.D. Normal [facility] Comment on above: Performed By: #### A BG #### Point of Care testing , Urine bacteria detection by automated methodOrdered By: Farhan Hudson on 01-29-2024 Bacteria Auto Ql (U) Rare None Seen [facility] Urine clarity by refractomet ry automatedOrdered By: Farhan Hudson on 01-29-2024 Clarity Refractometry automated (U) Cloudy Clear [facility] Urine culture routineOrdered By: Farhan Hudson on 01-29-2024 Bacteria identified Cx Nom (U) Klebsiella variicola [facility] Urine glucose measurement by automated test strip (mass/volume)Ordered By: Farhan Hudson on 01-29-2024 Glucose Auto test strip (U) [Mass/Vol] 500 mg/dL Normal [facility] Urine hemoglobin detection b y automated test stripOrdered By: Farhan Hudson on 01-29-2024 Hemoglobin Auto test strip Ql (U) 3+ Negative [facility] Urine leukocyte esterase det ection by automated test stripOrdered By: Farhan Hudson on 01-29-2024 Leukocyte esterase Auto test strip Ql (U) 3+ Negative [facility] Urobilinogen Auto test strip (U) [Mass/Vol]Ordered By: Farhan Hudson on 01-29-2024 Urobilinogen (U) [Mass/Vol] Normal mg/dL Normal [facility] Yeast detection in urine sed iment by light microscopyOrdered By: Farhan Hudson on 01-29-2024 Yeast LM Ql (Urine sed) Budding yeast [HPF] None Seen [facility] pH Auto test strip (U)Ordere d By: Farhan Hudson on 01-29-2024 pH (U) 5.0 [pH] 5.0-9.0 [facility] Amikacin [Mass/volume] in Se rum or Plasma --randomOrdered By: Farhan Hudson on 01-28-2024 Amikacin random [Mass/Vol] See comment [facility] Comment on above: See report. Scanned copy available in EMR. Amikacin, Random ([facility])on Amikacin, Random ([facility]) Normal [facility] Comment on above: Result Comment: See report. Scanned copy available in EMR. PERFORMED BY: [place] [address] PATHOLOGIST [employer] RAFA BYRNE M.D. Performed By: #### G LULS #### Point of Care testing , B-Type Natriuretic Peptideon 01-28-2024 Natriuretic peptide B (Bld) [Mass/Vol] 1652.0 pg/mL High 5-100 [facility] Comment on above: Result Comment: PERF ORMED BY: [place] [phone] PATHOLOGIST [employer] RAFA BYRNE M.D. Performed By: #### C BC, BMP #### [address] Clostridioides difficile tox in B tcdB gene [Presence] in Stool by RADHA with probe deteOrdered By: Farhan Hudson on 01-28-2024 C. difficile toxin B tcdB gene RADHA+probe Ql (Stl) Negative Negative [facility] Comment on above: Testing performed by RT-PCR Complete Blood Count Auto Di ffon 01-28-2024 Basophils (Bld) [#/Vol] 0.1 10*3/uL Normal 0.0-0.2 [facility] Comment on above: Result Comment: PERF ORMED BY: [place] [address] PATHOLOGIST [employer] RAFA BYRNE M.D. Performed By: #### A BG #### Point of Care testing , Basophils/100 WBC (Bld) 0.4 % Normal . [facility] Comment on above: Performed By: #### A BG #### Point of Care testing , Eosinophils (Bld) [#/Vol] 0.3 10*3/uL Normal 0.0-0.45 [facility] Comment on above: Performed By: #### A BG #### Point of Care testing , Eosinophils/100 WBC (Bld) 1.6 % Normal . [facility] Comment on above: Performed By: #### A BG #### Point of Care testing , Erythrocyte distribution width (RBC) [Ratio] 17.8 % High 12.0-14.8 [facility] Comment on above: Performed By: #### A BG #### Point of Care testing , Hematocrit (Bld) [Volume fraction] 31.5 % Low 38.8-50.0 [facility] Comment on above: Performed By: #### A BG #### Point of Care testing , Hemoglobin (Bld) [Mass/Vol] 10.3 g/dL Low 13.0-17.0 [facility] Comment on above: Performed By: #### A BG #### Point of Care testing , Lymphocytes (Bld) [#/Vol] 1.3 10*3/uL Normal 1.00-4.8 [facility] Comment on above: Performed By: #### A BG #### Point of Care testing , Lymphocytes/100 WBC (Bld) 6.5 % Normal . [facility] Comment on above: Performed By: #### A BG #### Point of Care testing , MCH (RBC) [Entitic mass] 26.3 pg Low 27.5-35.2 [facility] Comment on above: Performed By: #### A BG #### Point of Care testing , MCV (RBC) [Entitic vol] 80.4 fL Low 83.5-101 [facility] Comment on above: Performed By: #### A BG #### Point of Care testing , Mean Corpuscular HGB Conc 32.8 g/dL Normal 32.5-35.6 [facility] Comment on above: Performed By: #### A BG #### Point of Care testing , Monocytes (Bld) [#/Vol] 0.7 10*3/uL Normal 0.0-0.8 [facility] Comment on above: Performed By: #### A BG #### Point of Care testing , Monocytes/100 WBC (Bld) 3.5 % Normal . [facility] Comment on above: Performed By: #### A BG #### Point of Care testing , Neutrophils (Bld) [#/Vol] 18.1 10*3/uL High 1.8-7.7 [facility] Comment on above: Performed By: #### A BG #### Point of Care testing , Neutrophils/100 WBC (Bld) 88.0 % Normal . [facility] Comment on above: Performed By: #### A BG #### Point of Care testing , NRBC% 0.1 /100{WBC} Normal 0-0.5 [facility] Comment on above: Performed By: #### A BG #### Point of Care testing , Platelet mean volume (Bld) [Entitic vol] 7.9 fL Normal 6.6-10.1 [facility] Comment on above: Performed By: #### A BG #### Point of Care testing , Platelets (Bld) [#/Vol] 337 10*3/uL Normal 150-450 [facility] Comment on above: Performed By: #### A BG #### Point of Care testing , RBC (Bld) [#/Vol] 3.92 10*6/uL Normal 3.90-5.60 [facility] Comment on above: Performed By: #### A BG #### Point of Care testing , WBC (Bld) [#/Vol] 20.6 10*3/uL High 4.1-10.5 [facility] Comment on above: Performed By: #### A BG #### Point of Care testing , Comprehensive Metabolic Pane bola 01-28-2024 Albumin [Mass/Vol] 2.6 g/dL Low 3.5-5.7 [facility] Comment on above: Performed By: #### G LULS #### Point of Care testing , Albumin/Globulin [Mass ratio] 0.5 {ratio} Normal [facility] Comment on above: Performed By: #### G ALVARADO #### Point of Care testing , ALP [Catalytic activity/Vol] 183 U/L High 34-104 [facility] Comment on above: Performed By: #### Georgette CHILDERS #### Point of Care testing , ALT [Catalytic activity/Vol] 32 U/L Normal 7-52 [facility] Comment on above: Performed By: #### Georgette CHILDERS #### Point of Care testing , Anion gap [Moles/Vol] 18.2 mmol/L High 6.0-15.0 [facility] Comment on above: Performed By: #### G ALVARADO #### Point of Care testing , AST [Catalytic activity/Vol] 26 U/L Normal 13-39 [facility] Comment on above: Performed By: #### Georgette CHILDERS #### Point of Care testing , Bilirubin [Mass/Vol] 0.4 mg/dL Normal 0.3-1.0 [facility] Comment on above: Performed By: #### Georgette CHILDERS #### Point of Care testing , Calcium [Mass/Vol] 7.3 mg/dL Low 8.6-10.3 [facility] Comment on above: Performed By: #### Georgette CHILDERS #### Point of Care testing , Chloride [Moles/Vol] 94 mmol/L Low 98-107 [facility] Comment on above: Performed By: #### Georgette CHILDERS #### Point of Care testing , CO2 [Moles/Vol] 17.6 mmol/L Low 21.0-31.0 [facility] Comment on above: Performed By: #### Georgette CHILDERS #### Point of Care testing , Creatinine [Mass/Vol] 5.14 mg/dL High 0.70-1.30 [facility] Comment on above: Performed By: #### Georgette CHILDERS #### Point of Care testing , Creatinine Clr Calc Pharmacy 15.56 [facility] Comment on above: Performed By: #### Georgette CHILDERS #### Point of Care testing , GFR/1.73 sq M.predicted MDRD (S/P/Bld) [Vol rate/Area] 11.425 mL/min/{1.73_m2} Normal [facility] Comment on above: Performed By: #### G LULS #### Point of Care testing , Globulin (S) [Mass/Vol] 4.8 g/dL Normal [facility] Comment on above: Performed By: #### G LULS #### Point of Care testing , Glucose [Mass/Vol] 196 mg/dL High 70-100 [facility] Comment on above: Result Comment: [place] Glucose Reference Range is dependent on time and content of last meal. Glucose of more than 200 mg/dL in a nonstressed, ambulatory subject supports the diagnosis of Diabetes Mellitus. ADA recommended reference range Performed By: #### G LULS #### Point of Care testing , Potassium [Moles/Vol] 5.8 mmol/L High 3.5-5.1 [facility] Comment on above: Performed By: #### G LULS #### Point of Care testing , Protein [Mass/Vol] 7.4 g/dL Normal 6.4-8.9 [facility] Comment on above: Performed By: #### G LULS #### Point of Care testing , Sodium [Moles/Vol] 124 mmol/L Off scale low 136-145 [facility] Comment on above: Result Comment: Crit ical Result Called to and read back by: JORJE SALINAS at: 01/28/2024 22:55:22 by:RN Performed By: #### G LULS #### Point of Care testing , Urea nitrogen [Mass/Vol] 93 mg/dL High 7-25 [facility] Comment on above: Performed By: #### G LULS #### Point of Care testing , Glucose Poct Glucometerson 0 01-28-2024 Glucose [Mass/Vol] 232 mg/dL Normal [facility] Comment on above: Result Comment: [facility] Glucose Reference Range is dependent on time and content of last meal. Glucose of more than 200 mg/dL in a nonstressed, ambulatory subject supports the diagnosis of Diabetes Mellitus. PERFORMED BY: [facility] [address] [place] [address] PATHOLOGIST [employer] RAFA BYRNE M.D. Performed By: #### G LULS #### Point of Care testing , Magnesiumon 01-28-2024 Magnesium [Mass/Vol] 2.2 mg/dL Normal 1.9-2.7 [facility] Comment on above: Result Comment: PERF ORMED BY: [facility] [address] [place] [address] PATHOLOGIST [employer] RAFA BYRNE M.D. Performed By: #### G LULS #### Point of Care testing , Magnesium [Mass/volume] in S mary or PlasmaOrdered By: Farhan Hudson on 01-28-2024 Magnesium [Mass/Vol] 2.2 mg/dL 1.9-2.7 [facility] Natriuretic peptide B [Mass/ Vol]Ordered By: Farhan Hudson on 01-28-2024 Natriuretic peptide B (Bld) [Mass/Vol] 1652.0 pg/mL 5-100 [facility] Partial Thromboplastin Timeo n 01-28-2024 aPTT Coag (Bld) [Time] 47.6 s High 25.1-36.5 [facility] Comment on above: Result Comment: A he matocrit value greater than 55% may lead to inaccurate results in coagulation testing. Patients having hematocrit values >55% require a special collection tube for coagulation studies. Please contact the laboratory at [phone] for redraw instructions. PERFORMED BY: [facility] [address] [place] [address] PATHOLOGIST [employer] RAFA BYRNE M.D. Performed By: #### G LULS #### Point of Care testing , Prothrombin Time INRon 01-27 INR Coag (PPP) [Relative time] 2.5 {INR} Normal [facility] Comment on above: Result Comment: INR Therapeutic [...] valves: 3 - 4.5 Performed By: #### G LULS #### Point of Care testing , PT Coag (PPP) [Time] 28.3 s High 9.0-12.9 [facility] Comment on above: Result Comment: A he matocrit value greater than 55% may lead to inaccurate results in coagulation testing. Patients having hematocrit values >55% require a special collection tube for coagulation studies. Please contact the laboratory at [phone] for redraw instructions. Performed By: #### G LULS #### Point of Care testing , Office Visiton 01-25-2024 Follow-up visit [id number] Adwoa Porter 1955 M Date Provider Department Center 01/25/2024 BRYCE TRAORE Family History Problem Relation Age of Onset Diabetes Mother Hypertension Mother Coronary artery disease Mother Family Status - Relation Status Age at Mother Level of Service:28603 [place] OFFICE/OUTPATIENT ESTABLISHED MOD MDM 30 MIN Normal [facility] [place] 01-17-2024 L Specimen: [id number] Received: 01/18/24 Status: SOUT Req Num: [id number] Spec Type: Surgical Subm Dr: Jorge Arroyo DPM, MS Tissues: A Debridement-Skin/Other Than Skin (LT FOOT ULCER) B DIGIT AMPUTATION (LT 5TH METATARSAL) Procedures: HE/3, Gross/Micro L4, Gross/Micro L3, Decalcification Age/ Patient Sex Location Account Attending Physician Adwoa Porter 68/M LABELL [id number] Jorge Arroyo DPM, MS SPEC NUM: [id number] RECD: 01/18/24 STATUS: SOU REQ NUM: [id number] DAV: 01/17/[address]: Jorge Arroyo DPM, MS ENTERED: 01/18/[address]: Abraham Senior SPEC TYPE: Surgical DEPT: AMARIS REBOLLAR ORDERED: HE/3, Gross/Micro L4, Gross/Micro L3, Decalcification ORDERED: HE/3, Gross/Micro L4, Gross/Micro L3, Decalcification Pathological Diagnosis A, left foot ulcer, debridement: -Soft tissue with apparent severe necrotizing, gangrenous, and infected ulceration in all fragments B, left fifth metatarsal bone, debridement: -Bone fragments with necrotizing ulceration at the broken cortical bony surface and apparent patchy mild to moderate acute inflammation in the subcortical medullary space, compatible with acute osteomyelitis Clinical Information Diabetic foot infection, left Gross Description A. Received in formalin labeled with the patient's name, date of and left foot ulcer for path is a 3.5 x 3.5 x 0.5 cm aggregate of rodriguez-denny rubbery tissue. Entirely submitted in one cassette labeled A1. B. Received in formalin labeled with the patient's name, date of and left fifth metatarsal is a 2.5 x 1.2 x 1.0 cm rodriguez-white bone fragment with a rodriguez, trabecular cut surf lupis. Boat Captain are submitted following decalcification in one cassette labeled B1. Specimen: [id number] Received: 01/18/24 Status: ALEJA Gonzalez Num: [id number] Spec Type: Surgical Subm Dr: Jorge Arroyo,NELLY, MS Tissues: A Debridement-Skin/Other Than Skin (LT FOOT ULCER) B DIGIT AMPUTATION (LT 5TH METATARSAL) Procedures: HE/3, Gross/Micro L4, Gross/Micro L3, Decalcification Patient: Adwoa Porter [id number] (Continued) Specimen: [id number] Received: 01/18/24 (Continued) Signed (signature on file) Joy Navarro MD 01/22/24 1743 Specimen: [id number] Received: 01/18/24 Status: ALEJA Gonzalez Num: [id number] Spec Type: Surgical Subm Dr: Jorge Arroyo,DPM, MS Tissues: A Debridement-Skin/Other Than Skin (LT FOOT ULCER) B DIGIT AMPUTATION (LT 5TH METATARSAL) Procedures: HE/Judy, Gross/Micro L4, Gross/Micro L3, Decalcification Patient: Adwoa Porter [id number] (Continued) Specimen: [id number] Received: 01/18/24 (Continued) CPT Codes 65786t5, 25487 Specimen: [id number] Received: 01/18/24 Status: ALEJA Gonzalez Num: [id number] Spec Type: Surgical Subm Dr: Jorge Arroyo,DPM, MS Tissues: A Debridement-Skin/Other Than Skin (LT FOOT ULCER) B DIGIT AMPUTATION (LT 5TH METATARSAL) Procedures: HE/3, Gross/Micro L4, Gross/Micro L3, Decalcification Patient: Adwoa Porter [id number] (Continued) Signed (signature on file) Jose Luis-Jaron Navarro MD 01/22/24 1743 [facility] URINALYSISon 12-18-2023 Bilirubin Ql (U) Negative Normal NEG [facility] Comment on above: Performed By: #### U A #### [facility] ([id number]) [address] [place] [address] [place] [address] BLOOD/HGB Negative Normal NEG [facility] Comment on above: Performed By: #### U A #### [facility] ([id number]) [address] [place] [address] Color (U) YELLOW Normal YELLOW [facility] Comment on above: Performed By: #### U A #### [facility] ([id number]) [address] [place] [address] [place] [address] Glucose Ql (U) >1000 Abnormal NEG [facility] Comment on above: Performed By: #### U A #### [facility] ([id number]) [address] [place] [address] Ketones Ql (U) Negative Normal [facility] Comment on above: Performed By: #### U A #### [facility] ([id number]) [address] [place] [address] [place] [address] Leukocyte esterase Test strip Ql (U) Negative Normal NEG [facility] Comment on above: Result Comment: HIGH CONCENTRATIONS OF GLUCOSE MAY DECREASE THE REACTIVITY OF THE DIPSTICK LEUKOCYTE TEST PAD. Performed By: #### U A #### [facility] ([id number]) [address] [place] [address] [place] [address] Nitrite Ql (U) Negative Normal NEG [facility] Comment on above: Performed By: #### U A #### [facility] ([id number]) [address] [place] [address], [place] [address] pH (U) 7.0 [pH] Normal 5.0-8.5 [facility] Comment on above: Performed By: #### U A #### [facility] ([id number]) [address] [place] [address] Protein Ql (U) Negative Normal NEG [facility] Comment on above: Performed By: #### U A #### [facility] ([id number]) [address] [place] [address] Specific gravity (U) [Rel density] 1.010 Normal 1.003-1.[address] [place] [address] Comment on above: Performed By: #### U A #### [facility] ([id number]) [address] [place] [address] TURBIDITY CLEAR Normal CLEAR [facility] Comment on above: Performed By: #### U A #### [facility] ([id number]) [address] [place] [address] Urinalysis dipstick W Reflex Microscopic panel (U) URINE RECEIVED WITHOUT PRESERVATIVE-DELAYS IN TRANSPORT MAY AFFECT RESULTS.INTERPRET WITH CAUTION AND CLINICAL CORRELATION IS RECOMMENDED. Normal [facility] Comment on above: Performed By: #### U A #### [facility] ([id number]) [address] [place] [address] Urobilinogen Qn (U) 0.2 {Ashley'U}/dL Normal <1.1 [facility] Comment on above: Performed By: #### U A #### [facility] ([id number]) [address] [place] [address] URINE CULTUREon 12-18-2023 Bacteria identified Cx Nom (U) CULTURE RESULTS NO GROWTH AT <1000 CFU/mL Normal [facility] Comment on above: Performed By: #### 6 30-4 #### [facility] ([id number]) [address], [address] [place] [address] Office Visiton 11-26-2023 Follow-up visit [id number] Jamari,Adwoa Rubi 1955 M Provider Department Center 11/26/2023 BRYCE TRAORE Family History Problem Relation Age of Onset Diabetes Mother Hypertension Mother Coronary artery disease Mother Family Status - Relation Status Age at Mother Level of Service:17762 [place] OFFICE/OUTPATIENT ESTABLISHED MOD MDM 30 MIN Normal [facility] Glucose - FINGER STICKon Glucose [Mass/Vol] 529 mg/dL [employer] Other Office Visiton 09-21-2023 Follow-up visit [id number] Willie Porteralesha Rubi 1955 M Date Provider Department Center 09/21/2023 SUSHIL CAO [facility] Family History Problem Relation Age of Onset Diabetes Mother Hypertension Mother Coronary artery disease Mother Family Status - Relation Status Age at Mother Level of Service:78363 [place] OFFICE/OUTPATIENT ESTABLISHED MOD MDM 30-39 MIN Reason for Visit and Comments: Follow-up [100203] Congestive Heart Failure [127] Normal [facility] Glucose - FINGER STICKon Glucose [Mass/Vol] 91 mg/dL [employer] Other Office Visiton 08-23-2023 Follow-up visit [id number] Adwoa Porter 1955 Date Provider Department Center 08/23/2023 MASSIMO DYE [facility] Family History Problem Relation Age of Onset Diabetes Mother Hypertension Mother Coronary artery disease Mother Family Status - Relation Status Age at Mother Level of Service:39576 [place] OFFICE/OUTPATIENT ESTABLISHED HIGH MDM 40-54 MIN Reason for Visit and Comments: Wheezing [517001] Hospital Follow-up [832] Normal [facility] Office Visiton 08-15-2023 Follow-up visit [id number] Adwoa Porter 1955 M Date Provider Department Center 08/15/2023 BRYCE TRAORE [facility] Family History Problem Relation Age of Onset Diabetes Mother Hypertension Mother Coronary artery disease Mother Family Status - Relation Status Age at Mother Level of Service:49961 [place] OFFICE/OUTPATIENT ESTABLISHED MOD MDM 30-39 MIN [facility] 36on 08-13-2023 36 Pt informed [facility] A1C HEMOGLOBINon 06-29-2023 HbA1c (Bld) [Mass fraction] 7.9 % [employer] [facility] [employer] Other Glucose - FINGER STICKon Glucose [Mass/Vol] 382 mg/dL [employer] [facility] [employer] Other HbA1c (Bld) [Mass fraction]o n 06-29-2023 A1C HEMOGLOBIN [facility] [employer] Other 36on 06-20-2023 36 His potassium on 05/21 was 2.7. He needs to come to the hospital to receive IV potassium and further treatment as needed [facility] Telephoneon 06-20-2023 Telephone [id number] Adwoa Porter 1955 M [facility] Provider Department Center 06/20/2023 SUSHIL CAO RICHY [place] Family History Problem Relation Age of Onset Diabetes Mother Hypertension Mother Coronary artery disease Mother Family Status - Relation Status Age at Mother [facility] 36on 06-19-2023 36 [facility] lab called to re port a potassium level of 2.7 today. Melissa tried to call patient to remind him of his apt tomorrow but he did not answer and had no voicemail. [facility] 36on 06-18-2023 36 [facility] lab called to re port a critical BNP of 13,277. FYI. [facility] Telephoneon 06-18-2023 Telephone [id number] Adwoa Porter 1955 Provider Department Center 06/18/2023 SUSHIL CAO Family History Problem Relation Age of Onset Diabetes Mother Hypertension Mother Coronary artery disease Mother Family Status - Relation Status Age at Mother [facility] Office Visiton 06-05-2023 Follow-up visit [id number] Adwoa Porter 1955 M Date Provider Department Center 06/05/2023 SUSHIL CAO [facility] Hos Family History Problem Relation Age of Onset Diabetes Mother Hypertension Mother Coronary artery disease Mother Family Status - Relation Status Age at Mother Level of Service:09218 [place] OFFICE/OUTPATIENT ESTABLISHED MOD MDM 30-39 MIN Reason for Visit and Comments: Follow-up [188373] Normal [facility] PTH INTACTon 04-12-2023 PTH, Intact 50 pg/mL Normal 15-65 [facility] Comment on above: Performed By: #### P THINT ####[facility] [address] [place] [address]DrWesley Navarro HEMOGRAM AND PLATELon 2022 Hematocrit (Bld) [Volume fraction] 42.7 % Normal 42.0-54.0 [facility] Comment on above: Performed By: #### H H ####[facility] [address] [place], [place] [address]DrWesley Navarro Hemoglobin (Bld) [Mass/Vol] 14.3 g/dL Normal 14.0-18.0 [facility] Comment on above: Performed By: #### H H ####[facility] [address] [place], [place] [address]DrWesley Navarro MCH (RBC) [Entitic mass] 29.5 pg Normal 25.9-34.0 [facility] Comment on above: Performed By: #### H H ####[facility] [address] [place], [place] [address]DrWesley Navarro MCHC (RBC) [Mass/Vol] 33.5 g/dL Normal 29.9-35.2 [facility] Comment on above: Performed By: #### H H ####[facility] [address] [place], [place] [address]DrWesley Navarro MCV (RBC) [Entitic vol] 88.2 fL Normal 80.0-94.0 [facility] Comment on above: Performed By: #### H H ####[facility] [address] [place], [place] [address]Dr. Emelina Navarro PLT 278 103/ul Normal 150-450 [facility] Comment on above: Performed By: #### H H ####[facility] [address] [place] [address]Dr. Emelina Navarro RBC 4.84 106/ul Normal 4.70-6.10 [facility] Comment on above: Performed By: #### H H ####[facility] [address] [place] [address]Dr. Emelina Navarro WBC 12.9 103/ul Critically high 4.0-11.0 [facility] Comment on above: Performed By: #### H H ####[facility] [address] [place] [address]Dr. Emelina Navarro MAGNESIUMon 04-11-2023 Magnesium [Mass/Vol] 2.2 mg/dL Normal 1.8-2.4 [facility] Comment on above: Performed By: #### U JOLIE, RENAL, MG ####[facility] [address] [place] [address]Dr. Emelina Navarro RENAL FUNCTION PANELon 04-11 Albumin [Mass/Vol] 3.6 g/dL Normal 3.4-5.0 [facility] Comment on above: Performed By: #### U JOLIE, RENAL, MG ####[facility] [address] [place] [address]Dr. Emelina Navarro Calcium [Mass/Vol] 9.5 mg/dL Normal 8.5-10.1 [facility] Comment on above: Performed By: #### U JOLIE, RENAL, MG ####[facility] [address] [place] [address]Dr. Emelina Navarro Chloride [Moles/Vol] 95 mmol/L Critically low 98-107 [facility] Comment on above: Performed By: #### U JOLIE, RENAL, MG ####[facility] [address] [place] [address]Dr. Emelina Navarro CO2 [Moles/Vol] 36.4 mmol/L Critically high 21.0-32.0 [facility] Comment on above: Performed By: #### U JOLIE, RENAL, MG ####[facility] [address] [place] [address]Dr. Emelina Navarro Creatinine [Mass/Vol] 1.92 mg/dL Critically high 0.70-1.30 [facility] Comment on above: Performed By: #### U JOLIE, RENAL, MG ####[facility] [address] [place] [address]Dr. Awildanitza Ramon EGFR-AF [place]ONG [place]ER 42 mL/min/1.73m2 Critically low >=60 [facility] Comment on above: Performed By: #### U JOLIE, RENAL, MG ####[facility] [address] [place] [address]Dr. Emelina Navarro EGFR-NON AF [place]ER 35 mL/min/1.73m2 Critically low >=60 [facility] Comment on above: Performed By: #### U JOLIE, RENAL, MG ####[facility] [address] [place], [place] [address]Dr. Emelina Navarro Glucose [Mass/Vol] 96 mg/dL Normal 74-106 [facility] Comment on above: Performed By: #### U JOLIE, RENAL, MG ####[facility] [address] [place], [place] [address]Dr. Emelina Navarro Phosphate [Mass/Vol] 4.0 mg/dL Normal 2.6-4.7 [facility] Comment on above: Performed By: #### U JOLIE, RENAL, MG ####[facility] [address] [place], [place] [address]Dr. Awildanitza Ramon Potassium [Moles/Vol] 3.1 mmol/L Critically low 3.5-5.1 [facility] Comment on above: Performed By: #### U JOLIE, RENAL, MG ####[facility] [address] [place] [address]Dr. Emelina Navarro Sodium [Moles/Vol] 137 mmol/L Normal 136-145 [facility] Comment on above: Performed By: #### U JOLIE, RENAL, MG ####[facility] [address] [place], [place] [address]Dr. Emelina Navarro Urea nitrogen [Mass/Vol] 31.0 mg/dL Critically high 7.0-18.0 [facility] Comment on above: Performed By: #### U JOLIE, RENAL, MG ####[facility] [address] [place] [address]Dr. Emelina Navarro UA RANDOM W/MICROSCOPICon BACTERIA NONE SEEN Normal NONE SEEN [facility] Comment on above: Performed By: #### U AMIC ####[facility] [address] [place] [address]Dr. Emelina Navarro Bilirubin Ql (U) Negative Normal NEGATIVE [facility] Comment on above: Performed By: #### U AMIC ####[facility] [address] [place], [place] [address]Dr. Emelina Navarro CAST NONE SEEN Normal NONE SEEN [facility] Comment on above: Performed By: #### U AMIC ####[facility] [address] [place] [address]Dr. Emelina Navarro Clarity (U) CLEAR Normal CLEAR [facility] Comment on above: Performed By: #### U AMIC ####[facility] [address] [place] [address]Dr. Emelina Navarro Color (U) LT. YELLOW Normal YELLOW [facility] Comment on above: Performed By: #### U AMIC ####[facility] [address] [place] [address]Dr. Emelina Navarro Crystals LM Nom (Urine sed) NONE SEEN Normal NONE SEEN [facility] Comment on above: Performed By: #### U AMIC ####[facility] [address] [place] [address]Dr. Emelina Navarro Epithelial cells LM Ql (Urine sed) FEW Abnormal NONE SEEN /RARE [facility] Comment on above: Performed By: #### U AMIC ####[facility] [address] [place] [address]Dr. Emelina Navarro Glucose Ql (U) 500 mg/dl Abnormal NEGATIVE [facility] Comment on above: Performed By: #### U AMIC ####[facility] [address] [place] [address]Dr. Emelina Navarro Hemoglobin Ql (U) Negative Normal NEGATIVE [facility] Comment on above: Performed By: #### U AMIC ####[facility] [address] [place] [address]Dr. Emelina Navarro Ketones Ql (U) Negative Normal NEGATIVE [facility] Comment on above: Performed By: #### U AMIC ####[facility] [address] [place], [place] [address]Dr. Emelina Navarro LEUKOCYTES Negative Normal NEGATIVE [facility] Comment on above: Performed By: #### U AMIC ####[facility] [address] [place], [place] [address]Dr. Emelina Ramon MUCOUS NONE SEEN Normal NONE SEEN [facility] Comment on above: Performed By: #### U AMIC ####[facility] [address] [place], [place] [address]Dr. Emelina Ramon Nitrite Ql (U) Negative Normal NEGATIVE [facility] Comment on above: Performed By: #### U AMIC ####[facility] [address] [place], [place] [address]Dr. Emelina Navarro pH (U) 6.5 [pH] Normal 5-9 [facility] Comment on above: Performed By: #### U AMIC ####[facility] [address] [place], [place] [address]Dr. Emelina Navarro RBC NONE SEEN Abnormal 0-2 [facility] Comment on above: Performed By: #### U AMIC ####[facility] [address] [place], [place] [address]Dr. Emelina Navarro SPEC GRAVITY 1.005 Normal 1.005-<=1. 025 [facility] Comment on above: Performed By: #### U AMIC ####[facility] [address] [place], [place] [address]Dr. Emelina Navarro UA PROTEIN Negative Normal NEGATIVE/ TRACE [facility] Comment on above: Performed By: #### U AMIC ####[facility] [address] [place], [place] [address]Dr. Emelina Navarro Urobilinogen Qn (U) 0.2 {Ashley'U}/dL Normal 0.2 - 1. 0 [facility] Comment on above: Performed By: #### U AMIC ####[facility] [address] [place] [address]Dr. Emelina Navarro WBC NONE SEEN Normal NONE SEEN [facility] Comment on above: Performed By: #### U AMIC ####[facility] [address] [place] [address]Dr. Emelina Navarro URIC ACID SERUMon 04-11-2023 Urate [Mass/Vol] 12.2 mg/dL Critically high 3.5-7.2 [facility] Comment on above: Performed By: #### U JOLIE, RENAL, MG ####[facility] [address] [place], [place] [address]Dr. Awildanitza Navarro URINE T PROTEIN CREAT RATIOo n 04-11-2023 Protein (U) [Mass/Vol] 9.3 mg/dL Normal <=12.0 [facility] Comment on above: Performed By: #### U RTPCR ####[facility] Jholqxzeei[address] [place], [place] [address]Dr. Emelina Navarro UR PROT CREAT RAT 0.37 Normal [facility] Comment on above: Performed By: #### U RTPCR ####[facility] Qzonxcused[address] [place], [place] [address]Dr. Emelina Navarro URINE CREAT 25.00 mg/dL Normal 20.00-300. 00 [facility] Comment on above: Performed By: #### U RTPCR ####[facility] Fgadpolfyb8[address] [place], [place] [address]Dr. Emelina Navarro VITAMIN D 25 OHon 04-11-2023 VIT D 25-OH 51.8 ng/mL Normal [facility] Comment on above: Performed By: #### V ITAD ####[facility] Wyfzzgfhqv9[address] [place], [place] [address]Dr. Emelina Navarro VIT D RANGES SEE BELOW Normal [facility] Comment on above: Result Comment: <20 ng/mL Vit D deficient 20 - <30 ng/mL Vit D insufficient 30 - 100 ng/mL Vit D sufficient >100 ng/mL Potential Toxicity Performed By: #### V ITAD ####[facility] Cwpgeqnmdh17[address] [place], [place] [address]Dr. Emelina Navarro BNPon 03-28-2023 Natriuretic peptide B (Bld) [Mass/Vol] 7479.0 pg/mL Critically high <=900.0 [facility] Comment on above: Performed By: #### B [employer] EXECUTIVE DIRECTOR, CMP ####[facility] Ycihlmjezz3[address] [place], [place] [address]Dr. Emelina Navarro CBC AUTO DIFFon 03-28-2023 BASO # 0.1 103/ul Normal 0.0-0.1 [facility] Comment on above: Performed By: #### C BC ####[facility] Ivmnwbnpum[address] [place], [place] [address]Dr. Emelina Navarro Basophils/100 WBC (Bld) 0.5 % Normal 0.2-2.0 [facility] Comment on above: Performed By: #### C BC ####[facility] Gphowryxsh74[address] [place], [place] [address]Dr. Emelina Navarro EO # 0.4 103/ul Normal 0.0-0.7 [facility] Comment on above: Performed By: #### C BC ####[facility] Ktsywypukr[address] [place], [place] [address]Dr. Emelina Navarro Eosinophils/100 WBC (Bld) 3.7 % Normal 0.9-7.0 [facility] Comment on above: Performed By: #### C BC ####[facility] Leefynppov0616[address] [place], [place] [address]Dr. Awildanitza Navarro Erythrocyte distribution width (RBC) [Ratio] 18.2 % Critically high 11.0-15.0 [facility] Comment on above: Performed By: #### C BC ####[facility] Qidtkodmvi0217[address] [place], [place] [address]Dr. Awildanitza Navarro Hematocrit (Bld) [Volume fraction] 39.0 % Critically low 42.0-54.0 [facility] Comment on above: Performed By: #### C BC ####[facility] [address] [place] [id number]. Emelina Navarro Hemoglobin (Bld) [Mass/Vol] 12.8 g/dL Critically low 14.0-18.0 [facility] Comment on above: Performed By: #### C BC ####[facility] [address]warhk[address] [place] [address]Dr. Emelina Navarro IG # 0.05 10e3/ul Critically high 0.00-0.03 [facility] Comment on above: Performed By: #### C BC ####[facility] Peygalwhot[address] [place] [address]Dr. Emelina Navarro IG % 0.5 % Normal 0.0-0.5 [facility] Comment on above: Performed By: #### C BC ####[facility] Jagrusksej2782[address] [place], [place] [address]Dr. Emelina Navarro LYMPH # 1.4 103/ul Normal 1.2-3.8 [facility] Comment on above: Performed By: #### C BC ####[facility] Ynbvjwjvve[address] [place] [address]Dr. Emelina Navarro Lymphocytes/100 WBC (Bld) 13.1 % Critically low 20.5-60.0 [facility] Comment on above: Performed By: #### C BC ####[facility] Rrmgcfklld[address] [place] [address]Dr. Emelina Navarro MANUAL DIFF REQ NO Normal [facility] Comment on above: Performed By: #### C BC ####[facility] Iyuponqgac[address] [place], [place] [address]Dr. Emelina Navarro MCH (RBC) [Entitic mass] 29.8 pg Normal 25.9-34.0 [facility] Comment on above: Performed By: #### C BC ####[facility] Pfizgnjsgz3675[address] [place], [place] [address]Dr. Emelina Navarro MCHC (RBC) [Mass/Vol] 32.8 g/dL Normal 29.9-35.2 [facility] Comment on above: Performed By: #### C BC ####[facility] Ubodllbzdc[address] [place] [id number]. Emelina Navarro MCV (RBC) [Entitic vol] 90.9 fL Normal 80.0-94.0 [facility] Comment on above: Performed By: #### C BC ####[facility] Nthsktpznc[address] [place], [place] [address]Dr. Emelina Navarro MONO # 0.8 103/ul Normal 0.3-0.8 [facility] Comment on above: Performed By: #### C BC ####[facility] Kehtkjvwde6123[address] [place], [place] [address]Dr. Emelina Navarro Monocytes/100 WBC (Bld) 7.5 % Normal 1.7-12.0 [facility] Comment on above: Performed By: #### C BC ####[facility] Yahpalopit75[address] [place], [place] [address]Dr. Emelina Navarro NEUT # 8.1 103/ul Critically high 1.4-6.5 [facility] Comment on above: Performed By: #### C BC ####[facility] Ssvesnrizt0466[address] [place], [place] [address]Dr. Emelina Navarro Neutrophils/100 WBC (Bld) 74.7 % Normal 43.0-75.0 [facility] Comment on above: Performed By: #### C BC ####[facility] Zivsijlpnl9[address] [place], [place] [address]Dr. Emelina Navarro Platelet mean volume (Bld) [Entitic vol] 10.0 fL Normal 9.5-13.5 [facility] Comment on above: Performed By: #### C BC ####[facility] Ertwtyapln[address] [place], [place] [address]Dr. Emelina Navarro PLT 242 103/ul Normal 150-450 [facility] Comment on above: Performed By: #### C BC ####[facility] Fdavbvdqsd8[address] [place], [place] [address]Dr. Emelina Ramon RBC 4.29 106/ul Critically low 4.70-6.10 [facility] Comment on above: Performed By: #### C BC ####[facility] Qltrhewilj1229 [place] [id number]. Emelina Navarro WBC 10.8 103/ul Normal 4.0-11.0 [facility] Comment on above: Performed By: #### C BC ####[facility] Tdjxxmhorf30[address] [place] [address]Dr. Emelina Navarro PROF 14(COMP METB)on 023 Albumin [Mass/Vol] 2.7 g/dL Critically low 3.4-5.0 [facility] Comment on above: Performed By: #### B NUR[employer]ES[employer] ASSOCIATION EXECUTIVE DIRECTOR, CMP ####[facility] Awttutaypv[address] [place] [address]Dr. Emelina Navarro Albumin/Globulin [Mass ratio] 0.6 {ratio} Normal [facility] Comment on above: Performed By: #### B NUR[employer]ES[employer] ASSOCIATION EXECUTIVE DIRECTOR, CMP ####[facility] Pngqofycfx07[address] [place], [place] [address]Dr. Emelina Navarro ALP [Catalytic activity/Vol] 105 U/L Normal 46-116 [facility] Comment on above: Performed By: #### B NUR[employer]ES[employer] ASSOCIATION EXECUTIVE DIRECTOR, CMP ####[facility] Ruqfhmfrkm8158[address] [place], [place] [address]Dr. Emelina Navarro ALT [Catalytic activity/Vol] 21 U/L Normal 16-63 [facility] Comment on above: Performed By: #### B NUR[employer]ES[employer] ASSOCIATION EXECUTIVE DIRECTOR, CMP ####[facility] G[address]qejnouzw37[address] [place] [address]Dr. Emelina Navarro Anion gap [Moles/Vol] 11.6 mmol/L Normal Th [facility] Comment on above: Performed By: #### B NURSES[employer] ASSOCIATION EXECUTIVE DIRECTOR, CMP ####[facility] Uxrtryswjp59[address] [place] [address]Dr. Emelina Navarro AST [Catalytic activity/Vol] 25 U/L Normal 15-37 [facility] Comment on above: Performed By: #### B NUR[employer]ES[employer] ASSOCIATION EXECUTIVE DIRECTOR, CMP ####[facility] Wasvteyqdv22[address] [place] [address]Dr. Emelina Navarro Bilirubin [Mass/Vol] 0.8 mg/dL Normal 0.2-1.0 [facility] Comment on above: Performed By: #### B NUR[employer]ES[employer] ASSOCIATION EXECUTIVE DIRECTOR, CMP ####[facility] Ugpetnjpfc9234 [place] [address]Dr. Emelina Navarro Calcium [Mass/Vol] 8.1 mg/dL Critically low 8.5-10.1 [facility] Comment on above: Performed By: #### B NURSES[employer] ASSOCIATION EXECUTIVE DIRECTOR, CMP ####[facility] Tappoolakm8100[address] [place], [place] [address]Dr. Emelina Navarro Chloride [Moles/Vol] 100 mmol/L Normal 98-107 [facility] Comment on above: Performed By: #### B NUR[employer]ES[employer] ASSOCIATION EXECUTIVE DIRECTOR, CMP ####[facility] Pmlnprelmm4716[address] [place], [place] [address]Dr. Emelina Navarro CO2 [Moles/Vol] 29.2 mmol/L Normal 21.0-32.0 [facility] Comment on above: Performed By: #### B NURSES' ASSOCIATION EXECUTIVE DIRECTOR, CMP ####[facility] Hjwgsdwput6525[address] [place], [place] [address]Dr. Emelina Navarro Creatinine [Mass/Vol] 1.66 mg/dL Critically high 0.70-1.30 [facility] Comment on above: Performed By: #### B NURSES' ASSOCIATION EXECUTIVE DIRECTOR, CMP ####[facility] Drzzzhcgfl4514[address] [place], [place] [address]Dr. Emelina Navarro EGFR-AF [place] 50 mL/min/1.73m2 Critically low >=60 [facility] Comment on above: Performed By: #### B NURSES' ASSOCIATION EXECUTIVE DIRECTOR, CMP ####[facility] Uzeiubyclw2464[address] [place], [place] [address]Dr. Emelina Navarro EGFR-NON AF [place] 41 mL/min/1.73m2 Critically low >=60 [facility] Comment on above: Performed By: #### B NURSES' ASSOCIATION EXECUTIVE DIRECTOR, CMP ####[facility] Ttogfrsqzy5650[address] [place], [place] [address]Dr. Emelina Navarro Globulin (S) [Mass/Vol] 4.2 g/dL Normal [facility] Comment on above: Performed By: #### B NURSES' ASSOCIATION EXECUTIVE DIRECTOR, CMP ####[facility] Kfhewueyad8410[address] [place], [place] [address]Dr. Emelina Navarro Glucose [Mass/Vol] 126 mg/dL Critically high 74-106 T [facility] Comment on above: Performed By: #### B NURSES' ASSOCIATION EXECUTIVE DIRECTOR, CMP ####[facility] Upwevbgfmz7998[address] [place], [place] [address]Dr. Emelina Navarro Potassium [Moles/Vol] 3.8 mmol/L Normal 3.5-5.1 [facility] Comment on above: Performed By: #### B NURSES' ASSOCIATION EXECUTIVE DIRECTOR, CMP ####[facility] Zerjzjqbjp097[address] [place], [place] [address]Dr. Emelina Navarro Protein [Mass/Vol] 6.9 g/dL Normal 6.4-8.2 [facility] Comment on above: Performed By: #### B NURSES' ASSOCIATION EXECUTIVE DIRECTOR, CMP ####[facility] Pyzvpasnhk7856[address] [place], [place] [address]Dr. Emelina Navarro Sodium [Moles/Vol] 137 mmol/L Normal 136-145 [facility] Comment on above: Performed By: #### B NURSES' ASSOCIATION EXECUTIVE DIRECTOR, CMP ####[facility] Tneqvnfrks1438[address] [place], [place] [address]Dr. Emelina Navarro Urea nitrogen [Mass/Vol] 32.0 mg/dL Critically high 7.0-18.0 [facility] Comment on above: Performed By: #### B NURSES' ASSOCIATION EXECUTIVE DIRECTOR, CMP ####[facility] Hzgrlkjhto9065[address] [place], [place] [address]Dr. Emelina Navarro Urea nitrogen/Creatinine [Mass ratio] 19.3 mg/mg Normal [facility] Comment on above: Performed By: #### B NURSES' ASSOCIATION EXECUTIVE DIRECTOR, CMP ####[facility] Thcbbzthax1202[address] [place], [place] [address]Dr. Emelina Navarro PROTIMEon 03-28-2023 INR Coag (PPP) [Relative time] 2.59 {INR} Normal [facility] Comment on above: Performed By: #### P T ####[facility] Hgopwqjyeb7[address] [place], [place] [address]Dr. Emelina Navarro INR GUIDELINES SEE BELOW Normal [facility] Comment on above: Result Comment: WENDY RED INR: 2.0 - 3.0 CONDITIONS NOT LISTED BELOW 2.5 - 3.5 FOR PROSTHETIC HEART VALVE REPLACEMENT 2.5 - 3.5 RECURRENT THROMBOSIS Performed By: #### P T ####[facility] Wsxdm[address]nyr[address] [place] [address]Dr. Emelina Navarro PT Coag (PPP) [Time] 26.0 s Critically high 9.0-11.6 [facility] Comment on above: Performed By: #### P T ####[facility] Kbejslmhkc[address] [place] [address]Dr. Emleina Navarro SED RATE ERGRENon 2022 SED RATE 62 mm/hr Critically high <=20 [facility] Comment on above: Performed By: #### S EDR ####[facility] Jjjucsuywe7[address] [place], [place] [address]Dr. Emelina Navarro BNPon 03-27-2023 Natriuretic peptide B (Bld) [Mass/Vol] 99938.0 pg/mL Critically high <=900.0 [facility] Comment on above: Performed By: #### B NURSES' ASSOCIATION EXECUTIVE DIRECTOR ####[facility] Bujxoquydn8[address] [place], [place] [address]Dr. Emelina Navarro CARDIAC IMTIAZ 3-6on 3 CK [Catalytic activity/Vol] 59 U/L Normal 39-308 [facility] Comment on above: Performed By: #### C MREP ####[facility] Areonewasm9712[address] [place], [place] [address]Dr. Emelina Navarro CK.MB [Mass/Vol] 1.98 ng/mL Normal <=3.60 [facility] Comment on above: Performed By: #### C MREP ####[facility] Givfxmodzt5727[address] [place], [place] [address]Dr. Emelina Navarro HSTROP 52.5 pg/mL Normal 4.0-76.1 [facility] Comment on above: Result Comment: CUT- OFF POINTS HAVE BEEN ESTABLISHED BASED ON THE FOURTH UNIVERSAL DEFINITIONS OF MYOCARDIALINFARCTION. THE UPPER REFERENCE LIMIT (URL) OF TROPONIN, DEFINED THE 99TH PERCENTILE OFcTnI DISTRIBUTION IN A REFERENCE POPULATION, HAS BEEN CONFIRMED THE DECISION THRESHOLDFOR VT DIAGNOSIS. Performed By: #### C MREP ####[facility] Yrnduqjkmq[address] [place], [place] [address]Dr. Emelina Navarro CK [Catalytic activity/Vol] 41 U/L Normal 39-308 [facility] Comment on above: Performed By: #### C MREP ####[facility] Bezlmjlhxd[address] [place] [address]Dr. Emelina Navarro CK.MB [Mass/Vol] 1.26 ng/mL Normal <=3.60 [facility] Comment on above: Performed By: #### C MREP ####[facility] S[address]udyzl16[address] [place] [address]Dr. Emelina Navarro HSTROP 49.5 pg/mL Normal 4.0-76.1 [facility] Comment on above: Result Comment: CUT- OFF POINTS HAVE BEEN ESTABLISHED BASED ON THE FOURTH UNIVERSAL DEFINITIONS OF MYOCARDIALINFARCTION. THE UPPER REFERENCE LIMIT (URL) OF TROPONIN, DEFINED THE 99TH PERCENTILE OFcTnI DISTRIBUTION IN A REFERENCE POPULATION, HAS BEEN CONFIRMED THE DECISION THRESHOLDFOR VT DIAGNOSIS. Performed By: #### C MREP ####[facility] [address]zq[address]px[address] [place] [address]Dr. Emelina Navarro CBC AUTO DIFFon 03-27-2023 BASO # 0.0 103/ul Normal 0.0-0.1 [facility] Comment on above: Performed By: #### C BC ####[facility] Pfhpdopzbe60[address] [place] [address]Dr. Emelina Navarro Basophils/100 WBC (Bld) 0.3 % Normal 0.2-2.0 [facility] Comment on above: Performed By: #### C BC ####[facility] Asmocjxxuz4913 [place] [address]Dr. Emelina Navarro EO # 0.4 103/ul Normal 0.0-0.7 [facility] Comment on above: Performed By: #### C BC ####[facility] Gfvbnyzgcu7507 [place] [address]Dr. Emelina Navarro Eosinophils/100 WBC (Bld) 3.3 % Normal 0.9-7.0 [facility] Comment on above: Performed By: #### C BC ####[facility] Miyxoksasq3392 [place] [address]Dr. Emelina Navarro Erythrocyte distribution width (RBC) [Ratio] 17.9 % Critically high 11.0-15.0 [facility] Comment on above: Performed By: #### C BC ####[facility] Igdkvibpsy0693 [place] [address]Dr. Emelina Navarro Hematocrit (Bld) [Volume fraction] 42.3 % Normal 42.0-54.0 [facility] Comment on above: Performed By: #### C BC ####[facility] Pawzsjbnws4[address] [place], [place] [address]Dr. Emelina Navarro Hemoglobin (Bld) [Mass/Vol] 13.8 g/dL Critically low 14.0-18.0 [facility] Comment on above: Performed By: #### C BC ####[facility] Felhatpbfg6496[address] [place], [place] [address]Dr. Emelina Navarro IG # 0.07 10e3/ul Critically high 0.00-0.03 [facility] Comment on above: Performed By: #### C BC ####[facility] Lzgmipjqiv7201[address] [place], [place] [address]Dr. Awildanitza Navarro IG % 0.5 % Normal 0.0-0.5 [facility] Comment on above: Performed By: #### C BC ####[facility] Ujhoquhrln6[address] [place], [place] [address]Dr. Emelina Navarro LYMPH # 2.3 103/ul Normal 1.2-3.8 [facility] Comment on above: Performed By: #### C BC ####[facility] Wcdfaokpdv[address] [place], [place] [address]Dr. Emelina Navarro Lymphocytes/100 WBC (Bld) 17.5 % Critically low 20.5-60.0 [facility] Comment on above: Performed By: #### C BC ####[facility] Gfmotbkqmq083[address] [place], [place] [address]Dr. Emelina Navarro MANUAL DIFF REQ NO Normal [facility] Comment on above: Performed By: #### C BC ####[facility] [address] [place] [address]. Emelina Navarro MCH (RBC) [Entitic mass] 29.3 pg Normal 25.9-34.0 [facility] Comment on above: Performed By: #### C BC ####[facility] Vfrxezqijz78[address] [place] [address]Dr. Emelina Navarro MCHC (RBC) [Mass/Vol] 32.6 g/dL Normal 29.9-35.2 [facility] Comment on above: Performed By: #### C BC ####[facility] Vyjdiilqek852[address] [place], [place] [address]Dr. Emelina Navarro MCV (RBC) [Entitic vol] 89.8 fL Normal 80.0-94.0 [facility] Comment on above: Performed By: #### C BC ####[facility] Lmdmojntkf2026[address] [place], [place] [address]Dr. Emelina Navarro MONO # 1.0 103/ul Critically high 0.3-0.8 [facility] Comment on above: Performed By: #### C BC ####[facility] Nlsqbkqvch5364[address] [place], [place] [address]Dr. Emelina Navarro Monocytes/100 WBC (Bld) 7.8 % Normal 1.7-12.0 [facility] Comment on above: Performed By: #### C BC ####[facility] Ikqeorwknh82[address] [place], [place] [address]Dr. Emelina Navarro NEUT # 9.3 103/ul Critically high 1.4-6.5 [facility] Comment on above: Performed By: #### C BC ####[facility] Zfpohscbwc3365[address] [place], [place] [address]Dr. Emelina Navarro Neutrophils/100 WBC (Bld) 70.6 % Normal 43.0-75.0 [facility] Comment on above: Performed By: #### C BC ####[facility] Mxyyvlzfuj4156[address] [place], [place] [address]Dr. Emelina Navarro Platelet mean volume (Bld) [Entitic vol] 9.6 fL Normal 9.5-13.5 [facility] Comment on above: Performed By: #### C BC ####[facility] Zvwclskrla7[address] [place] [id number]. Emelina Navarro PLT 248 103/ul Normal 150-450 [facility] Comment on above: Performed By: #### C BC ####[facility] Zdofkhchwy4052 [place] [id number]. Emelina Navarro RBC 4.71 106/ul Normal 4.70-6.10 [facility] Comment on above: Performed By: #### C BC ####[facility] Xdpleenjyd7897 [place] [id number]. Emelina Navarro WBC 13.2 103/ul Critically high 4.0-11.0 [facility] Comment on above: Performed By: #### C BC ####[facility] Hnojywjyls59[address] [place] [id number]. Emelina Navarro DIGOXINon 03-27-2023 DIG 1.1 ng/mL Normal 0.9-2.0 [facility] Comment on above: Performed By: #### D IG ####[facility] Djtatyosed8101 [place] [id number]. Emelina Navarro LACTATE/LACTIC ACIDon 2022 Lactate [Moles/Vol] 0.8 mmol/L Normal 0.4-2.0 [facility] Comment on above: Performed By: #### L ACT ####[facility] Lnpezpwrwf8843 [place] [id number]. Emelina Navarro LIPID PROFILEon 03-27-2023 CHOL-HDL RATIO NORM SEE BELOW Normal [facility] Comment on above: Result Comment: 3.3 - 4.4 LOW RISK 4.4 - 7.1 AVERAGE RISK 7.1 - 11.0 MODERATE RISK >11.0 HIGH RISK Performed By: #### L IPID, TSH ####[facility] Ltcztrumos[address] [place], [place] [address]Dr. Emelina Navarro Cholesterol [Mass/Vol] 86 mg/dL Normal <=200 [facility] Comment on above: Performed By: #### L IPID, TSH ####[facility] K[address]wcmtc[address] [place], [place] [address]Dr. Emelina Navarro Cholesterol in HDL [Mass/Vol] 29 mg/dL Critically low 40-60 [facility] Comment on above: Performed By: #### L IPID, TSH ####[facility] Wqcqcaieee5323 [place] [id number]. Emelina Navarro Cholesterol in LDL [Mass/Vol] 37.8 mg/dL Normal [facility] Comment on above: Performed By: #### L IPID, TSH ####[facility] Qqelqlztyd3556 [place] [address]Dr. Emelina Navarro Cholesterol.total/Cho lesterol in HDL [Mass ratio] 3.0 {ratio} Normal [facility] Comment on above: Performed By: #### L IPID, TSH ####[facility] Znylaxeibn09[address] [place] [address]Dr. Emeilna Navarro HDL NORMAL > or = 60 mg/dl - LO W CARDIOVASCULAR RISK <40 mg/dl - HIGH CARDIOVASCULAR RISK Normal [facility] Comment on above: Performed By: #### L IPID, TSH ####[facility] Ziwnlkfgwm8798 [place] [address]Dr. Emelina Navarro LDL CALC NORMAL SEE BELOW Normal [facility] Comment on above: Result Comment: <100 mg/dl OPTIMAL 100 - 129 mg/dl NEAR OR ABOVE OPTIMAL 130 - 159 mg/dl BORDERLINE HIGH 160 - 189 mg/dl HIGH >190 mg/dl VERY HIGH Performed By: #### L IPID, TSH ####[facility] Qnkfjywobe6221 [place] [address]Dr. Emelina Navarro Triglyceride [Mass/Vol] 96 mg/dL Normal <=150 [facility] Comment on above: Performed By: #### L IPID, TSH ####[facility] Epxipnnllr99[address] [place] [address]Dr. Emelina Navarro VLDL CALC 19.2 mg/dL Normal [facility] Comment on above: Performed By: #### L IPID, TSH ####[facility] Hiigjfnsty1878 [place] [id number]. Emelina Navarro POINT OF CARE GLUCOSEon 05-0 9-2023 Glucose [Mass/Vol] 175 mg/dL Critically high 74-106 [facility] Comment on above: Performed By: #### P OCGLUC ####[facility] Vujqxrcxtk[address] [place], [place] [address]Dr. Emelina Navarro Glucose [Mass/Vol] 196 mg/dL Critically high 74-106 [facility] Comment on above: Performed By: #### P OCGLUC ####[facility] Ksvsfmvmgb[address] [place], [place] [address]Dr. Emelina Navarro PROF 14(COMP METB)on 023 Albumin [Mass/Vol] 2.9 g/dL Critically low 3.4-5.0 Th [facility] Comment on above: Performed By: #### C MP ####[facility] Pdrgvelaoi8[address] [place], [place] [address]Dr. Emelina Navarro Albumin/Globulin [Mass ratio] 0.6 {ratio} Normal [facility] Comment on above: Performed By: #### C MP ####[facility] Xsjylidqtx[address] [place], [place] [address]Dr. Emelina Navarro ALP [Catalytic activity/Vol] 112 U/L Normal 46-116 [facility] Comment on above: Performed By: #### C MP ####[facility] Pvvzknvmkw[address] [place], [place] [address]Dr. Emelina Navarro ALT [Catalytic activity/Vol] 23 U/L Normal 16-63 [facility] Comment on above: Performed By: #### C MP ####[facility] Nfeqztwdqv[address] [place], [place] [address]Dr. Emelina Navarro Anion gap [Moles/Vol] 9.5 mmol/L Normal [facility] Comment on above: Performed By: #### C MP ####[facility] Dhptfdmlkw4[address] [place], [place] [address]Dr. Emelina Navarro AST [Catalytic activity/Vol] 30 U/L Normal 15-37 [facility] Comment on above: Performed By: #### C MP ####[facility] Mcpdkywywm[address] [place], [place] [address]Dr. Emelina Navarro Bilirubin [Mass/Vol] 0.8 mg/dL Normal 0.2-1.0 [facility] Comment on above: Performed By: #### C MP ####[facility] Hnumyovtqw[address] [place], [place] [address]Dr. Emelina Navarro Calcium [Mass/Vol] 8.2 mg/dL Critically low 8.5-10.1 Th e [facility] Comment on above: Performed By: #### C MP ####[facility] Zmtfdmrgbm[address] [place], [place] [address]Dr. Emelina Navarro Chloride [Moles/Vol] 100 mmol/L Normal 98-107 [facility] Comment on above: Performed By: #### C MP ####[facility] Lwjuxtqtzi66[address] [place], [place] [address]Dr. Emelina Navarro CO2 [Moles/Vol] 32.9 mmol/L Critically high 21.0-32.0 [facility] Comment on above: Performed By: #### C MP ####[facility] Tcqfpebchi[address] [place], [place] [address]Dr. Emelina Navarro Creatinine [Mass/Vol] 1.60 mg/dL Critically high 0.70-1.30 [facility] Comment on above: Performed By: #### C MP ####[facility] Histrbbtnl[address] [place], [place] [address]Dr. Emelina Navarro EGFR-AF [place]ER 52 mL/min/1.73m2 Critically low >=60 [facility] Comment on above: Performed By: #### C MP ####[facility] Iufesxhgcy[address] [place], [place] [address]Dr. Emelina Navarro EGFR-NON AF [place] 43 mL/min/1.73m2 Critically low >=60 [facility] Comment on above: Performed By: #### C MP ####[facility] Kzqevboede[address] [place], [place] [address]Dr. Emelina Navarro Globulin (S) [Mass/Vol] 4.6 g/dL Normal [facility] Comment on above: Performed By: #### C MP ####[facility] Eajthrlksp6[address] [place], [place] [address]Dr. Emelina Navarro Glucose [Mass/Vol] 76 mg/dL Normal 74-106 [facility] Comment on above: Performed By: #### C MP ####[facility] [address] [place] [address]Dr. Emelina Navarro Potassium [Moles/Vol] 3.4 mmol/L Critically low 3.5-5.1 [facility] Comment on above: Performed By: #### C MP ####[facility] Qnpmdxvnum3830 [place] [address]Dr. Emelina Navarro Protein [Mass/Vol] 7.5 g/dL Normal 6.4-8.2 [facility] Comment on above: Performed By: #### C MP ####[facility] Oqigjrwlcs10[address] [place], [place] [address]Dr. Emelina Navarro Sodium [Moles/Vol] 139 mmol/L Normal 136-145 [facility] Comment on above: Performed By: #### C MP ####[facility] Kuztmjrzwc[address] [place], [place] [address]Dr. Emelina Navarro Urea nitrogen [Mass/Vol] 30.0 mg/dL Critically high 7.0-18.0 [facility] Comment on above: Performed By: #### C MP ####[facility] Krmmkdyfuw9646[address] [place], [place] [address]Dr. Emelina Navarro Urea nitrogen/Creatinine [Mass ratio] 18.8 mg/mg Normal [facility] Comment on above: Performed By: #### C MP ####[facility] Pwajqtwerj[address] [place], [place] [address]Dr. Emelina Navarro PROTIMEon 03-27-2023 INR Coag (PPP) [Relative time] 2.58 {INR} Normal [facility] Comment on above: Performed By: #### P T ####[facility] Sfvkiysvyi4465[address] [place], [place] [address]Dr. Emelina Navarro INR GUIDELINES SEE BELOW Normal [facility] Comment on above: Result Comment: WENDY RED INR: 2.0 - 3.0 CONDITIONS NOT LISTED BELOW 2.5 - 3.5 FOR PROSTHETIC HEART VALVE REPLACEMENT 2.5 - 3.5 RECURRENT THROMBOSIS Performed By: #### P T ####[facility] [address] [place] [address]Dr. Emelina Navarro PT Coag (PPP) [Time] 25.9 s Critically high 9.0-11.6 [facility] Comment on above: Performed By: #### P T ####[facility] Nkwibvijwq7[address] [place] [address]Dr. Emelina Navarro T4on 03-27-2023 T4 [Mass/Vol] 6.50 ug/dL Normal 4.50-12.10 [facility] Comment on above: Performed By: #### T 4 ####[facility] Dwzquqoqkh162[address] [place], [place] [address]Dr. Emelina Navarro TSHon 03-27-2023 TSH 5.619 uIU/mL Critically high 0.358-3.74 0 [facility] Comment on above: Performed By: #### L IPID, TSH ####[facility] Gkgjzhowha6[address] [place], [place] [address]DrWesley Navarro US FERNY DOP LEG RTon 03-27-20 23 US FERNY DOP LEG RT Normal [facility] XR CHEST 1 Von 03-27-2023 XR CHEST 1 V Normal [facility] XR FOOT RT MIN 3 VIEWSon XR FOOT RT MIN 3 VIEWS Normal [facility] BNPon 03-26-2023 Natriuretic peptide B (Bld) [Mass/Vol] 53755.0 pg/mL Critically high <=900.0 [facility] Comment on above: Performed By: #### B MP, CRP, CMADM, BNP ####[facility] [address]fqnaep33[address] [place] [address]Dr. Emelina Navarro CARDIAC IMTIAZ ADMITon 023 CK [Catalytic activity/Vol] 48 U/L Normal 39-308 [facility] Comment on above: Performed By: #### B MP, CRP, CMADM, BNP ####[facility] V[address]ecubagwn65[address] [place] [address]Dr. Emelina Navarro CK.MB [Mass/Vol] 1.48 ng/mL Normal <=3.60 The [facility] Comment on above: Performed By: #### B MP, CRP, CMADM, BNP ####[facility] Qlyvzxnbhk9307 [place] [address]Dr. Emelina Ramon HSTROP 49.9 pg/mL Normal 4.0-76.1 [facility] Comment on above: Result Comment: CUT- OFF POINTS HAVE BEEN ESTABLISHED BASED ON THE FOURTH UNIVERSAL DEFINITIONS OF MYOCARDIALINFARCTION. THE UPPER REFERENCE LIMIT (URL) OF TROPONIN, DEFINED THE 99TH PERCENTILE OFcTnI DISTRIBUTION IN A REFERENCE POPULATION, HAS BEEN CONFIRMED THE DECISION THRESHOLDFOR VT DIAGNOSIS. Performed By: #### B MP, CRP, CMADM, BNP ####[facility] Nlcgvujxtl7302 [place] [address]Dr. Emelina Navarro URBANO 117 ng/mL Critically high 16-96 [facility] Comment on above: Performed By: #### B MP, CRP, CMADM, BNP ####[facility] Bqpcuffjqr1802[address] [place], [place] [address]Dr. Emelina Navarro CBC AUTO DIFFon 03-26-2023 BASO # 0.1 103/ul Normal 0.0-0.1 [facility] Comment on above: Performed By: #### C BC ####[facility] Bynecaxqmk1662[address] [place], [place] [address]Dr. Emelina Navarro Basophils/100 WBC (Bld) 0.4 % Normal 0.2-2.0 [facility] Comment on above: Performed By: #### C BC ####[facility] Tdfrlzrmpd8394[address] [place], [place] [address]Dr. Emelina Navarro EO # 0.5 103/ul Normal 0.0-0.7 [facility] Comment on above: Performed By: #### C BC ####[facility] Wkakwuwxsm715[address] [place], [place] [address]Dr. Emelina Navarro Eosinophils/100 WBC (Bld) 3.5 % Normal 0.9-7.0 [facility] Comment on above: Performed By: #### C BC ####[facility] Vvcmldlifx0398[address] [place], [place] [address]Dr. Emelina Navarro Erythrocyte distribution width (RBC) [Ratio] 17.7 % Critically high 11.0-15.0 [facility] Comment on above: Performed By: #### C BC ####[facility] [address]efwfj[address] [place] [address]DrWesley Navarro Hematocrit (Bld) [Volume fraction] 42.6 % Normal 42.0-54.0 [facility] Comment on above: Performed By: #### C BC ####[facility] Dfzdopyrwg4320[address] [place], [place] [address]DrWesley Navarro Hemoglobin (Bld) [Mass/Vol] 14.2 g/dL Normal 14.0-18.0 [facility] Comment on above: Performed By: #### C BC ####[facility] Ewseenitsw1886[address] [place], [place] [address]DrWesley Navarro IG # 0.09 10e3/ul Critically high 0.00-0.03 [facility] Comment on above: Performed By: #### C BC ####[facility] Lqmcbyfrqb8884[address] [place], [place] [address]DrWesley Navarro IG % 0.7 % Critically high 0.0-0.5 [facility] Comment on above: Performed By: #### C BC ####[facility] Ordipuoyxh0212[address] [place], [place] [address]DrWesley Navarro LYMPH # 2.3 103/ul Normal 1.2-3.8 [facility] Comment on above: Performed By: #### C BC ####[facility] Emvmfyaazj[address] [place], [place] [address]DrWesley Navarro Lymphocytes/100 WBC (Bld) 17.3 % Critically low 20.5-60.0 [facility] Comment on above: Performed By: #### C BC ####[facility] Obizstcdqs6983[address] [place], [place] [address]DrWesley Navarro MANUAL DIFF REQ NO Normal [facility] Comment on above: Performed By: #### C BC ####[facility] Ejfmyfffvv5833[address] [place], [place] [address]DrWesley Navarro MCH (RBC) [Entitic mass] 29.6 pg Normal 25.9-34.0 [facility] Comment on above: Performed By: #### C BC ####[facility] Rxouexfakx32[address] [place] [address]Dr. Emelina Navarro MCHC (RBC) [Mass/Vol] 33.3 g/dL Normal 29.9-35.2 [facility] Comment on above: Performed By: #### C BC ####[facility] Dmwanyzlpx2986[address] [place], [place] [address]DrWesley Navarro MCV (RBC) [Entitic vol] 88.9 fL Normal 80.0-94.0 [facility] Comment on above: Performed By: #### C BC ####[facility] Drwjtrkqhj[address] [place], [place] [address]Dr. Emelina Navarro MONO # 1.3 103/ul Critically high 0.3-0.8 [facility] Comment on above: Performed By: #### C BC ####[facility] Nbucvjoqbq6[address] [place], [place] [address]Dr. Emelina Navarro Monocytes/100 WBC (Bld) 9.7 % Normal 1.7-12.0 [facility] Comment on above: Performed By: #### C BC ####[facility] Yiynziqzve[address] [place], [place] [address]DrWesley Navarro NEUT # 9.2 103/ul Critically high 1.4-6.5 [facility] Comment on above: Performed By: #### C BC ####[facility] Rngiixoqdo8257[address] [place], [place] [address]Dr. Emeilna Navarro Neutrophils/100 WBC (Bld) 68.4 % Normal 43.0-75.0 [facility] Comment on above: Performed By: #### C BC ####[facility] Wjnhbaazea5[address] [place], [place] [address]Dr. Emelina Navarro Platelet mean volume (Bld) [Entitic vol] 9.6 fL Normal 9.5-13.5 [facility] Comment on above: Performed By: #### C BC ####[facility] Ostvojpexi3964[address] [place], [place] [address]Dr. Emelina Navarro PLT 271 103/ul Normal 150-450 [facility] Comment on above: Performed By: #### C BC ####[facility] T[address]xftdcaqp[address] [place] [address]Dr. Emelina Navarro RBC 4.79 106/ul Normal 4.70-6.10 [facility] Comment on above: Performed By: #### C BC ####[facility] Mtttzeajnb4[address] [place] [address]Dr. Emelina Navarro WBC 13.4 103/ul Critically high 4.0-11.0 [facility] Comment on above: Performed By: #### C BC ####[facility] Gxmogundbe23[address] [place] [address]Dr. Awildanitza Ramon CRPon 03-26-2023 CRP 4.6 mg/dL Critically high <=1.0 [facility] Comment on above: Performed By: #### B MP, CRP, CMADM, BNP ####[facility] [address]fb[address]xa[address] [place] [address]Dr. Emelina Navarro LACTATE/LACTIC ACIDon 2022 Lactate [Moles/Vol] 1.6 mmol/L Normal 0.4-2.0 [facility] Comment on above: Performed By: #### L ACT ####[facility] Nyvvbmgcic[address] [place], [place] [address]Dr. Emelina Navarro PROF CHEM 8 (BAS METB)on Anion gap [Moles/Vol] 9.6 mmol/L Normal [facility] Comment on above: Performed By: #### B MP, CRP, CMADM, BNP ####[facility] [address]qoz[address] [place] [address]Dr. Emelina Navarro Calcium [Mass/Vol] 8.4 mg/dL Critically low 8.5-10.1 Th [facility] Comment on above: Performed By: #### B MP, CRP, CMADM, BNP ####[facility] Dqrpmhmfdu5654 [place] [address]Dr. Emelina Navarro Chloride [Moles/Vol] 102 mmol/L Normal 98-107 [facility] Comment on above: Performed By: #### B MP, CRP, CMADM, BNP ####[facility] [address]ss[address] [place] [address]Dr. Emelina Navarro CO2 [Moles/Vol] 30.9 mmol/L Normal 21.0-32.0 [facility] Comment on above: Performed By: #### B MP, CRP, CMADM, BNP ####[facility] Juq[address]zzrbyy[address] [place] [address]Dr. Emelina Navarro Creatinine [Mass/Vol] 1.73 mg/dL Critically high 0.70-1.30 [facility] Comment on above: Performed By: #### B MP, CRP, CMADM, BNP ####[facility] Ckxxgvrrex[address] [place], [place] [address]Dr. Emelina Navarro EGFR-AF [place] 48 mL/min/1.73m2 Critically low >=60 [facility] Comment on above: Performed By: #### B MP, CRP, CMADM, BNP ####[facility] Qxnoljxwsi96[address] [place], [place] [address]Dr. Emelina Navarro EGFR-NON AF [place] 39 mL/min/1.73m2 Critically low >=60 [facility] Comment on above: Performed By: #### B MP, CRP, CMADM, BNP ####[facility] Pfziviwseo[address] [place] [address]Dr. Emelina Navarro Glucose [Mass/Vol] 73 mg/dL Critically low 74-106 Th [facility] Comment on above: Performed By: #### B MP, CRP, CMADM, BNP ####[facility] V[address]q33[address] [place] [address]Dr. Emelina Navarro Potassium [Moles/Vol] 3.5 mmol/L Normal 3.5-5.1 [facility] Comment on above: Performed By: #### B MP, CRP, CMADM, BNP ####[facility] Wrnzulcibv4486 [place] [address]Dr. Emelina Navarro Sodium [Moles/Vol] 139 mmol/L Normal 136-145 [facility] Comment on above: Performed By: #### B MP, CRP, CMADM, BNP ####[facility] W[address]qnuymdi[address] [place] [address]Dr. Emelina Navarro Urea nitrogen [Mass/Vol] 29.0 mg/dL Critically high 7.0-18.0 [facility] Comment on above: Performed By: #### B MP, CRP, CMADM, BNP ####[facility] Gfgyegmdix45[address] [place] [address]Dr. Emelina Navarro Urea nitrogen/Creatinine [Mass ratio] 16.8 mg/mg Normal [facility] Comment on above: Performed By: #### B MP, CRP, CMADM, BNP ####[facility] Nkmexfehyt[address] [place] [address]Dr. Emelina Navarro [facility] SED RATE 60 mm/hr Critically high <=20 [facility] Comment on above: Performed By: #### S EDR ####[facility] [address]yshadluu[address] [place] [address]Dr. Emelina Navarro Office Visiton 03-21-2023 Follow-up visit [id number] Adwoa Porter 1955 M Date Provider Department [place] 03/21/2023 DAHIANA LOCKHART [facility] Family History Problem Relation Age of Onset Diabetes Mother Hypertension Mother Coronary artery disease Mother Family Status - Relation Status Age at Mother Level of Service:[address] [place] OFFICE/OUTPATIENT ESTABLISHED MOD MDM 30-39 MIN Normal [facility] Basic Metabolic Panelon Anion gap [Moles/Vol] 13.7 mmol/L Normal 6.0-15.0 [facility] Comment on above: Order Comment: pt is non fasting Performed By: #### C BC, BMP #### [facility] [address] Calcium [Mass/Vol] 9.2 mg/dL Normal 8.6-10.3 [facility] Comment on above: Order Comment: pt is non fasting Result Comment: PERF ORMED BY: [facility] [address] [place] [address] PATHOLOGIST [employer] RAFA BYRNE M.D. Performed By: #### C BC, BMP #### [facility] [address] [place] [address] [place] Chloride [Moles/Vol] 94 mmol/L Low 98-107 [facility] Comment on above: Order Comment: pt is non fasting Performed By: #### C BC, BMP #### [facility] [address] [place] [address] [place] CO2 [Moles/Vol] 31.1 mmol/L High 21.0-31.0 [facility] Comment on above: Order Comment: pt is non fasting Performed By: #### C BC, BMP #### [facility] [address] Creatinine [Mass/Vol] 1.57 mg/dL High 0.70-1.30 [facility] Comment on above: Order Comment: pt is non fasting Performed By: #### C BC, BMP #### [facility] [address] [place] [address] [place] GFR/1.73 sq M.predicted MDRD (S/P/Bld) [Vol rate/Area] 47.712 mL/min/{1.73_m2} Normal [facility] Comment on above: Order Comment: pt is non fasting Performed By: #### C BC, BMP #### [facility] [address] [place] [address] [place] Glucose [Mass/Vol] 67 mg/dL Low 70-100 [facility] Comment on above: Order Comment: pt is non fasting Result Comment: [place] Glucose Reference Range is dependent on time and content of last meal. Glucose of more than 200 mg/dL in a nonstressed, ambulatory subject supports the diagnosis of Diabetes Mellitus. ADA recommended reference range Performed By: #### C BC, BMP #### [facility] [address] [place] [address] [place] Potassium [Moles/Vol] 3.8 mmol/L Normal 3.5-5.1 [facility] Comment on above: Order Comment: pt is non fasting Performed By: #### C BC, BMP #### [facility] [address] [place] [id number] [place] Sodium [Moles/Vol] 135 mmol/L Low 136-145 [facility] Comment on above: Order Comment: pt is non fasting Performed By: #### C BC, BMP #### [facility] [address] [place] [id number] [place] Urea nitrogen [Mass/Vol] 25 mg/dL Normal 7-25 [facility] Comment on above: Order Comment: pt is non fasting Performed By: #### C BC, BMP #### [facility] [address] [place] [id number] [place] Calcium [Mass/volume] in Ser um or PlasmaOrdered By: Yakov To on 02-21-2023 Calcium [Mass/Vol] 9.2 mg/dL 8.6-10.3 [facility] Carbon dioxide, total [Moles /volume] in Serum or PlasmaOrdered By: Yakov To on 02-21-2023 CO2 [Moles/Vol] 31.1 mmol/L 21.0-31.0 [facility] Chloride [Moles/volume] in S mary or PlasmaOrdered By: Yakov To on 02-21-2023 Chloride [Moles/Vol] 94 mmol/L 98-107 [facility] Creatinine [Mass/volume] in Serum or PlasmaOrdered By: Yakov To on 02-21-2023 Creatinine [Mass/Vol] 1.57 mg/dL 0.70-1.30 [facility] Glucose [Mass/volume] in Ser um or PlasmaOrdered By: Yakov To on 02-21-2023 Glucose [Mass/Vol] 67 mg/dL 70-100 [facility] Comment on above: ADA recommended refe rence rangeRandom Glucose Reference Range is dependent on time and content of last meal. Glucose of more than 200 mg/dL in a nonstressed, ambulatory subject supports the diagnosis of Diabetes Mellitus. No Panel InformationOrdered By: Yakov To on 02-21-2023 Estimated GFR (CKD-EPI) 47.712 mL/Min [facility] Creatinine Clearance (Chem N/A [facility] Potassium [Moles/volume] in Serum or PlasmaOrdered By: Yakov To on 02-21-2023 Potassium [Moles/Vol] 3.8 mmol/L 3.5-5.1 [facility] Serum or plasma anion gap de terminationOrdered By: Yakov To on 02-21-2023 Anion gap [Moles/Vol] 13.7 mmol/L 6.0-15.0 [facility] Sodium [Moles/volume] in Ser um or PlasmaOrdered By: Yakov To on 02-21-2023 Sodium [Moles/Vol] 135 mmol/L 136-145 [facility] Urea nitrogen [Mass/volume] in Serum or PlasmaOrdered By: Yakov To on 02-21-2023 Urea nitrogen [Mass/Vol] 25 mg/dL 7-25 [facility] A1C with Estimated Average G luon 02-14-2023 Glucose [Mass/Vol] 252 mg/dL Normal [facility] Comment on above: Result Comment: PERF ORMED BY: [place] [address] PATHOLOGIST [employer] RAFA BYRNE M.D. Performed By: #### C BC, BMP #### [address] HbA1c (Bld) [Mass fraction] 10.4 % High 4.3-5.6 [facility] Comment on above: Result Comment: Incr eased risk for diabetes: 5.7 - 6.4 diabetes: >6.4 glycemic control for adults with diabetes: <7.0 Performed By: #### C BC, BMP #### [facility] [address] Basic Metabolic Panelon 01-18 Anion gap [Moles/Vol] 13.4 mmol/L Normal 6.0-15.0 [facility] Comment on above: Performed By: #### C BC, BMP #### [facility] [address] [place] [address] [place] Calcium [Mass/Vol] 9.1 mg/dL Normal 8.6-10.3 [facility] Comment on above: Performed By: #### C BC, BMP #### [facility] [address] Chloride [Moles/Vol] 95 mmol/L Low 98-107 [facility] Comment on above: Performed By: #### C BC, BMP #### [facility] [address] CO2 [Moles/Vol] 30.7 mmol/L Normal 21.0-31.0 [facility] Comment on above: Performed By: #### C BC, BMP #### [facility] [address] Creatinine [Mass/Vol] 1.65 mg/dL High 0.70-1.30 [facility] Comment on above: Performed By: #### C BC, BMP #### [facility] [address] [place] [address] [place] Creatinine Clr Calc Pharmacy 49.22 [facility] Comment on above: Performed By: #### C BC, BMP #### [facility] [address] [place] [address] [place] GFR/1.73 sq M.predicted MDRD (S/P/Bld) [Vol rate/Area] 44.950 mL/min/{1.73_m2} [facility] Comment on above: Performed By: #### C BC, BMP #### [facility] [address] Glucose [Mass/Vol] 193 mg/dL Significant change up 70-100 [facility] Comment on above: Result Comment: [place] Glucose Reference Range is dependent on time and content of last meal. Glucose of more than 200 mg/dL in a nonstressed, ambulatory subject supports the diagnosis of Diabetes Mellitus. ADA recommended reference range Performed By: #### C BC, BMP #### [facility] [address] Potassium [Moles/Vol] 3.1 mmol/L Low 3.5-5.1 [facility] Comment on above: Performed By: #### C MAHAD, BMP #### [facility] [address] [place] [id number] [place] Sodium [Moles/Vol] 136 mmol/L Significant change down 136-145 [facility] Comment on above: Performed By: #### C MAHAD, BMP #### [facility] [address] [place] [id number] [place] Urea nitrogen [Mass/Vol] 43 mg/dL High 7-25 [facility] Comment on above: Performed By: #### C MAHAD, BMP #### [facility] [address] [place] [id number] [place] Calcium [Mass/volume] in Ser um or PlasmaOrdered By: Yakov To on 02-14-2023 Calcium [Mass/Vol] 9.1 mg/dL 8.6-10.3 [facility] Carbon dioxide, total [Moles /volume] in Serum or PlasmaOrdered By: Yakov To on 02-14-2023 CO2 [Moles/Vol] 30.7 mmol/L 21.0-31.0 [facility] Chloride [Moles/volume] in S mary or PlasmaOrdered By: Yakov To on 02-14-2023 Chloride [Moles/Vol] 95 mmol/L 98-107 [facility] Creatinine [Mass/volume] in Serum or PlasmaOrdered By: Yakov To on 02-14-2023 Creatinine [Mass/Vol] 1.65 mg/dL 0.70-1.30 [facility] Glucose Glucometer (BldC) [M ass/Vol]Ordered By: Yakov To on 02-14-2023 Glucose [Mass/Vol] 197 mg/dL [facility] Comment on above: Random Glucose Refer ence Range is dependent on time and content of last meal. Glucose of more than 200 mg/dL in a nonstressed, ambulatory subject supports the diagnosis of Diabetes Mellitus. Glucose Poct Glucometerson 0 02-14-2023 Glucose [Mass/Vol] 197 mg/dL Normal [facility] Comment on above: Result Comment: [place] om Glucose Reference Range is dependent on time and content of last meal. Glucose of more than 200 mg/dL in a nonstressed, ambulatory subject supports the diagnosis of Diabetes Mellitus. PERFORMED BY: [place] [address] PATHOLOGIST [employer] RAFA BYRNE M.D. Performed By: #### G LULS #### Point of Care testing , Glucose [Mass/Vol] 350 mg/dL Normal [facility] Comment on above: Result Comment: [place] om Glucose Reference Range is dependent on time and content of last meal. Glucose of more than 200 mg/dL in a nonstressed, ambulatory subject supports the diagnosis of Diabetes Mellitus. PERFORMED BY: [place] [address] PATHOLOGIST [employer] RAFA BYRNE M.D. Performed By: #### C BC, BMP #### [address] Glucose [Mass/Vol] 216 mg/dL Normal [facility] Comment on above: Result Comment: [place] Glucose Reference Range is dependent on time and content of last meal. Glucose of more than 200 mg/dL in a nonstressed, ambulatory subject supports the diagnosis of Diabetes Mellitus. PERFORMED BY: [place] [address] PATHOLOGIST [employer] RAFA BYRNE M.D. Performed By: #### G LULS #### Point of Care testing , Glucose [Mass/volume] in Ser um or PlasmaOrdered By: Yakov To on 02-14-2023 Glucose [Mass/Vol] 193 mg/dL 70-100 [facility] Comment on above: Delta: 400 on -[id number] recommended reference rangeRandom Glucose Reference Range is dependent on time and content of last meal. Glucose of more than 200 mg/dL in a nonstressed, ambulatory subject supports the diagnosis of Diabetes Mellitus. Glucose mean value [Mass/vol ume] in Blood Estimated from glycated hemoglobinOrdered By: Yakov To on 02-14-2023 Average glucose Estimated from glycated hemoglobin (Bld) [Mass/Vol] 252 mg/dL [facility] Hemoglobin A1c percentageOrd ered By: Yakov To on 02-14-2023 HbA1c (Bld) [Mass fraction] 10.4 % 4.3-5.6 [facility] Comment on above: Increased risk for d iabetes: 5.7 - 6.4diabetes: >6.4glycemic control for adults with diabetes: <7.0 Laboratory - Chemistry and C hemistry - challengeOrdered By: Yakov To on 02-14-2023 GFR/1.73 sq M.predicted MDRD (S/P/Bld) [Vol rate/Area] 44.950 mL/min/{1.73_m2} [facility] Laboratory - CoagulationOrde red By: Yakov To on 02-14-2023 PT Coag (PPP) [Time] 25.6 s 9.0-12.9 [facility] Magnesiumon 02-14-2023 Magnesium [Mass/Vol] 2.4 mg/dL Normal 1.9-2.7 [facility] Comment on above: Result Comment: PERF ORMED BY: [place] [address] PATHOLOGIST [employer] RAFA BYRNE M.D. Performed By: #### C , BMP #### [address] Magnesium [Mass/volume] in S mary or PlasmaOrdered By: Yakov To on 02-14-2023 Magnesium [Mass/Vol] 2.4 mg/dL 1.9-2.7 [facility] No Panel InformationOrdered By: Yakov To on 02-14-2023 Pharmacy Creatinine Clearance (Chem 49.22 [facility] Platelet poor plasma interna tional normalized ratio (INR) by coagulation assay (relatOrdered By: Yakov To on 02-14-2023 INR Coag (PPP) [Relative time] 2.2 {INR} [facility] Comment on above: INR Therapeutic Rang e [...] 02-14-2023 Potassium [Moles/Vol] 3.7 mmol/L Normal 3.5-5.1 [facility] Comment on above: Result Comment: PERF ORMED BY: [place] [address] PATHOLOGIST [employer] RAFA BYRNE M.D. Performed By: #### C BC, BMP #### [address] Potassium [Moles/Vol] 3.4 mmol/L Low 3.5-5.1 [facility] Comment on above: Result Comment: PERF ORMED BY: [place] [address] PATHOLOGIST [employer] RAFA BYRNE M.D. Performed By: #### G LULS #### Point of Care testing , Potassium [Moles/volume] in Serum or PlasmaOrdered By: Yakov To on 02-14-2023 Potassium [Moles/Vol] 3.7 mmol/L 3.5-5.1 [facility] Prothrombin Time INRon 02-14 INR Coag (PPP) [Relative time] 2.2 {INR} Normal [facility] Comment on above: Result Comment: INR Therapeutic [...] heart valves: 3 - 4.5 PERFORMED BY: [place] [address] PATHOLOGIST [employer] RAFA BYRNE M.D. Performed By: #### G LULS #### Point of Care testing , PT Coag (PPP) [Time] 25.6 s High 9.0-12.9 [facility] Comment on above: Performed By: #### G ALVARADO #### Point of Care testing , Serum or plasma anion gap de terminationOrdered By: Yakov To on 02-14-2023 Anion gap [Moles/Vol] 13.4 mmol/L 6.0-15.0 [facility] Sodium [Moles/volume] in Ser um or PlasmaOrdered By: Yakov To on 02-14-2023 Sodium [Moles/Vol] 136 mmol/L 136-145 [facility] Comment on above: Delta: 129 on -1648 Urea nitrogen [Mass/volume] in Serum or PlasmaOrdered By: Yakov To on 02-14-2023 Urea nitrogen [Mass/Vol] 43 mg/dL 06-12 [facility] Activated partial thrombopla stin time (aPTT) in platelet poor plasma by coagulation aOrdered By: Angela Aden on 02-13-2023 aPTT Coag (PPP) [Time] 38.3 s 25.1-36.5 [facility] Alanine aminotransferase [En zymatic activity/volume] in Serum or PlasmaOrdered By: Angela Aden on 02-13-2023 ALT [Catalytic activity/Vol] 21 U/L [facility] Albumin [Mass/volume] in Ser um or Plasma by Bromocresol green (BCG) dye binding methoOrdered By: Angela Aden on 02-13-2023 Albumin BCG dye [Mass/Vol] 4.3 g/dL 3.5-5.7 [facility] Alkaline phosphatase [Enzyma tic activity/volume] in Serum or PlasmaOrdered By: Angela Aden on 02-13-2023 ALP [Catalytic activity/Vol] 98 U/L 34-104 [facility] Arterial Blood Gason 023 ABG Base Excess 5.2 mmol/L High -3.0-3.0 [facility] Comment on above: Performed By: #### A BG #### Point of Care testing , ABG Frac Inspired O2 21 % Normal [facility] Comment on above: Performed By: #### A BG #### Point of Care testing , ABG Oxygen Content 9.0 mmol/L Normal 6.6-9.7 [facility] Comment on above: Performed By: #### A BG #### Point of Care testing , ABG Oxygen Saturation 83.4 % Low 95.0-100.0 [facility] Comment on above: Performed By: #### A BG #### Point of Care testing , ABG PCO2 49.4 mm[Hg] High 35.0-45.0 [facility] Comment on above: Performed By: #### A BG #### Point of Care testing , ABG PH 7.42 Normal 7.35-7.45 [facility] Comment on above: Performed By: #### A BG #### Point of Care testing , ABG PO2 48.2 mm[Hg] Off scale low 80.0-100.0 [facility] Comment on above: Performed By: #### A BG #### Point of Care testing , CO2 [Moles/Vol] 32.7 mmol/L High 23.0-27.0 [facility] Comment on above: Performed By: #### A BG #### Point of Care testing , HCO3 (Bld) [Moles/Vol] 31.2 mmol/L High 23.0-29.0 [facility] Comment on above: Performed By: #### A BG #### Point of Care testing , Respiratory Critical Normal [facility] Comment on above: Result Comment: Crit ical Value called on: 02/13/2023 at 17:04 PERFORMED BY: [facility] [address] [place] [address] PATHOLOGIST [employer] RAFA BYRNE M.D. Performed By: #### A BG #### Point of Care testing , VBG Draw Site Venous Normal [facility] Comment on above: Performed By: #### A BG #### Point of Care testing , Aspartate aminotransferase [ Enzymatic activity/volume] in Serum or PlasmaOrdered By: Angela Aden on 02-13-2023 AST [Catalytic activity/Vol] 32 U/L 13-39 [facility] Basophils Auto (Bld) [#/Vol] Ordered By: Angela Aden on 02-13-2023 Basophils (Bld) [#/Vol] 0.1 10*3/uL 0.0-0.2 [facility] Basophils/100 WBC Auto (Bld) Ordered By: Angela Aden on 02-13-2023 Basophils/100 WBC (Bld) 0.6 % . [facility] Beta Hydroxybuterateon 02-13 Beta Hydroxybuterate 0.10 mmol/L Normal 0.02-0.27 [facility] Comment on above: Result Comment: PERF ORMED BY: [address] [address] PATHOLOGIST [employer] RAFA BYRNE M.D. Performed By: #### G LULS #### Point of Care testing , Beta hydroxybutyrate [Moles/ volume] in Serum or PlasmaOrdered By: Angela Aden on 02-13-2023 Beta hydroxybutyrate [Moles/Vol] 0.10 mmol/L 0.02-0.27 [facility] Bilirubin Test strip Ql (U)O rdered By: Angela Aden on 02-13-2023 Bilirubin Ql (U) Negative Negative [facility] Bilirubin.total [Mass/volume ] in Serum or PlasmaOrdered By: Angela Aden on 02-13-2023 Bilirubin [Mass/Vol] 1.3 mg/dL 0.3-1.0 [facility] Comment on above: Samples from patient s who have taken Naproxen have shown spurious elevation in Total Bilirubin levels. A metabolite of Naproxen, O-desmethylnaproxen, has been shown to interfere with the Lazaro method for measuring Total Bilirubin. CT head/brain wo conon 02-13 CT head/brain wo con [facility] Main [address] [address] [address] Scan Report Signed Patient: Adwoa Porter MR#: [id number] 7 : 1955 Acct:[id number] Age/Sex: 67 / M ADM Date: 03/28/23 Loc: ER Room: Type: REG ER Attending Dr: Copies to: Angela Aden [...] Archana Perez M.D.02/13/2023 5:28 PM Dictation Location: [place] [address] Transcribed By: [facility] 02/13/231727 Dictated By: Archana Perez MD 02/13/231722 Signed By: 02/13/231727 Normal [facility] Calcium [Mass/volume] in Ser um or PlasmaOrdered By: Angela Aden on 02-13-2023 Calcium [Mass/Vol] 9.3 mg/dL 8.6-10.3 [facility] Carbon dioxide, total [Moles /volume] in Serum or PlasmaOrdered By: Angela Aden on 02-13-2023 CO2 [Moles/Vol] 31.6 mmol/L 21.0-31.0 [facility] Chloride [Moles/volume] in S mary or PlasmaOrdered By: Angela Aden on 02-13-2023 Chloride [Moles/Vol] 85 mmol/L 98-107 [facility] Color Auto (U)Ordered By: Miguel Aden on 02-13-2023 Color (U) Yellow Yellow [facility] Complete Blood Count Auto Di ffon 02-13-2023 Basophils (Bld) [#/Vol] 0.1 10*3/uL Normal 0.0-0.2 [facility] Comment on above: Result Comment: PERF ORMED BY: [facility] [place] [address] PATHOLOGIST [employer] RAFA BYRNE M.D. Performed By: #### G LULS #### Point of Care testing , Basophils/100 WBC (Bld) 0.6 % Normal . [facility] Comment on above: Performed By: #### G LULS #### Point of Care testing , Eosinophils (Bld) [#/Vol] 0.4 10*3/uL Normal 0.0-0.45 [facility] Comment on above: Performed By: #### G LULS #### Point of Care testing , Eosinophils/100 WBC (Bld) 2.9 % Normal . [facility] Comment on above: Performed By: #### G LULS #### Point of Care testing , Erythrocyte distribution width (RBC) [Ratio] 17.9 % High 12.0-14.8 [facility] Comment on above: Performed By: #### G LULS #### Point of Care testing , Hematocrit (Bld) [Volume fraction] 48.8 % Normal 38.8-50.0 [facility] Comment on above: Performed By: #### G LULS #### Point of Care testing , Hemoglobin (Bld) [Mass/Vol] 16.6 g/dL Normal 13.0-17.0 [facility] Comment on above: Performed By: #### G LULS #### Point of Care testing , Lymphocytes (Bld) [#/Vol] 2.1 10*3/uL Normal 1.00-4.8 [facility] Comment on above: Performed By: #### G LULS #### Point of Care testing , Lymphocytes/100 WBC (Bld) 17.7 % Normal . [facility] Comment on above: Performed By: #### Georgette CHILDERS #### Point of Care testing , MCH (RBC) [Entitic mass] 29.0 pg Normal 27.5-35.2 [facility] Comment on above: Performed By: #### Georgette MCKOYLS #### Point of Care testing , MCV (RBC) [Entitic vol] 85.2 fL Normal 83.5-101 [facility] Comment on above: Performed By: #### Georgette MCKOYLS #### Point of Care testing , Mean Corpuscular HGB Conc 34.0 g/dL Normal 32.5-35.6 [facility] Comment on above: Performed By: #### Georgette CHILDERS #### Point of Care testing , Monocytes (Bld) [#/Vol] 1.0 10*3/uL High 0.0-0.8 [facility] Comment on above: Performed By: #### Georgette CHILDERS #### Point of Care testing , Monocytes/100 WBC (Bld) 19.79 % Normal 0.00-20.00 [facility] Comment on above: Performed By: #### Georgette CHILDERS #### Point of Care testing , Monocytes/100 WBC (Bld) 8.0 % Normal . [facility] Comment on above: Performed By: #### Georgette CHILDERS #### Point of Care testing , Neutrophils (Bld) [#/Vol] 8.5 10*3/uL High 1.8-7.7 [facility] Comment on above: Performed By: #### Georgette MCKOYLS #### Point of Care testing , Neutrophils/100 WBC (Bld) 70.8 % Normal . [facility] Comment on above: Performed By: #### Georgette MCKOYLS #### Point of Care testing , NRBC% 0.1 /100{WBC} Normal 0-0.5 [facility] Comment on above: Performed By: #### Georgette MCKOYLS #### Point of Care testing , Platelet mean volume (Bld) [Entitic vol] 8.6 fL Normal 6.6-10.1 [facility] Comment on above: Performed By: #### Georgette MCKOYLS #### Point of Care testing , Platelets (Bld) [#/Vol] 218 10*3/uL Normal 150-450 [facility] Comment on above: Performed By: #### G EANLS #### Point of Care testing , RBC (Bld) [#/Vol] 5.72 10*6/uL High 3.90-5.60 [facility] Comment on above: Performed By: #### G EANLS #### Point of Care testing , WBC (Bld) [#/Vol] 12.0 10*3/uL High 4.1-10.5 [facility] Comment on above: Performed By: #### G ALVARAOD #### Point of Care testing , Comprehensive Metabolic Pane bola 02-13-2023 Albumin [Mass/Vol] 4.3 g/dL Normal 3.5-5.7 [facility] Comment on above: Performed By: #### Georgette CHILDERS #### Point of Care testing , Albumin/Globulin [Mass ratio] 1.2 {ratio} Normal [facility] Comment on above: Performed By: #### G ALVARADO #### Point of Care testing , ALP [Catalytic activity/Vol] 98 U/L Normal 34-104 [facility] Comment on above: Performed By: #### G ALVARADO #### Point of Care testing , ALT [Catalytic activity/Vol] 21 U/L Normal 7-52 [facility] Comment on above: Performed By: #### Georgette CHILDERS #### Point of Care testing , Anion gap [Moles/Vol] 15.3 mmol/L High 6.0-15.0 [facility] Comment on above: Performed By: #### G ALVARADO #### Point of Care testing , AST [Catalytic activity/Vol] 32 U/L Normal 13-39 [facility] Comment on above: Performed By: #### G EANLS #### Point of Care testing , Bilirubin [Mass/Vol] 1.3 mg/dL High 0.3-1.0 [facility] Comment on above: Result Comment: Samp les from patients who have taken Naproxen have shown spurious elevation in Total Bilirubin levels. A metabolite of Naproxen, O-desmethylnaproxen, has been shown to interfere with the Jendrassik-Grof method for measuring Total Bilirubin. Performed By: #### G LULS #### Point of Care testing , Calcium [Mass/Vol] 9.3 mg/dL Normal 8.6-10.3 [facility] Comment on above: Performed By: #### G LULS #### Point of Care testing , Chloride [Moles/Vol] 85 mmol/L Low 98-107 [facility] Comment on above: Performed By: #### G LULS #### Point of Care testing , CO2 [Moles/Vol] 31.6 mmol/L High 21.0-31.0 [facility] Comment on above: Performed By: #### G LULS #### Point of Care testing , Creatinine [Mass/Vol] 2.06 mg/dL High 0.70-1.30 [facility] Comment on above: Performed By: #### G LULS #### Point of Care testing , Creatinine Clr Calc Pharmacy 39.26 [facility] Comment on above: Performed By: #### G LULS #### Point of Care testing , GFR/1.73 sq M.predicted MDRD (S/P/Bld) [Vol rate/Area] 34.441 mL/min/{1.73_m2} [facility] Comment on above: Performed By: #### G LULS #### Point of Care testing , Globulin (S) [Mass/Vol] 3.6 g/dL [facility] Comment on above: Performed By: #### G LULS #### Point of Care testing , Glucose [Mass/Vol] 400 mg/dL High 70-100 [facility] Comment on above: Result Comment: [place] Glucose Reference Range is dependent on time and content of last meal. Glucose of more than 200 mg/dL in a nonstressed, ambulatory subject supports the diagnosis of Diabetes Mellitus. ADA recommended reference range Performed By: #### G LULS #### Point of Care testing , Potassium [Moles/Vol] 2.9 mmol/L Off scale low 3.5-5.1 [facility] Comment on above: Result Comment: Hemo lysis is present at a level that could interfere with the result. Performed By: #### G LULS #### Point of Care testing , Protein [Mass/Vol] 7.9 g/dL Normal 6.4-8.9 [facility] Comment on above: Performed By: #### G LULS #### Point of Care testing , Sodium [Moles/Vol] 129 mmol/L Low 136-145 [facility] Comment on above: Performed By: #### G LULS #### Point of Care testing , Urea nitrogen [Mass/Vol] 53 mg/dL High 7-25 [facility] Comment on above: Performed By: #### G LULS #### Point of Care testing , Creatinine [Mass/volume] in Serum or PlasmaOrdered By: Angela Aden on 02-13-2023 Creatinine [Mass/Vol] 2.06 mg/dL 0.70-1.30 [facility] ECG 12 lead ECGon 02-13-2023 ECG 12 lead ECG [facility] [place] [address] Electrocardiograph Report Signed Patient: Adwoa Porter MR#: [id number] 7 : 1955 Acct:[id number] Age/Sex: 67 / M ADM Date: 02/13/23 Loc: Room: [address] [place] [address] Type: ADM IN Attending Dr: Yakov To [...] Bifascicular block Confirmed by Alejandro DUNCAN DO ([id number]) on 02/13/2023 10:10:19 PM Referred By: Electronically Signed By:Alejandro DUNCAN DO Transcribed By: MUS Signed By Alejandro Duncan DO 0 02/13/23 2210 Normal [facility] Eosinophils Auto (Bld) [#/Vo l]Ordered By: Angela Aden on 02-13-2023 Eosinophils (Bld) [#/Vol] 0.4 10*3/uL 0.0-0.45 [facility] Eosinophils/100 WBC Auto (Bl d)Ordered By: Angela Aden on 02-13-2023 Eosinophils/100 WBC (Bld) 2.9 % . [facility] Erythrocyte distribution wid th Auto (RBC) [Ratio]Ordered By: Angela Aden on 02-13-2023 Erythrocyte distribution width (RBC) [Ratio] 17.9 % 12.0-14.8 [facility] Globulin Calc (S) [Mass/Vol] Ordered By: Angela Aden on 02-13-2023 Globulin (S) [Mass/Vol] 3.6 g/dL [facility] Glucose Glucometer (BldC) [M ass/Vol]Ordered By: Yakov To on 02-13-2023 Glucose [Mass/Vol] 216 mg/dL [facility] Comment on above: Random Glucose Refer ence Range is dependent on time and content of last meal. Glucose of more than 200 mg/dL in a nonstressed, ambulatory subject supports the diagnosis of Diabetes Mellitus. Glucose Poct Glucometerson 0 02-13-2023 Glucose [Mass/Vol] 76 mg/dL Normal [facility] Comment on above: Result Comment: [place] Glucose Reference Range is dependent on time and content of last meal. Glucose of more than 200 mg/dL in a nonstressed, ambulatory subject supports the diagnosis of Diabetes Mellitus. PERFORMED BY: [facility] [address] [place] [address] PATHOLOGIST [employer] RAFA BYRNE M.D. Performed By: #### G LULS #### Point of Care testing , Commemt1 [facility] Comment on above: Result Comment: Glu2 : WILL NOTIFY DR/RN PERFORMED BY: [facility] [address] [place] [address] PATHOLOGIST [employer] RAFA BYRNE M.D. Performed By: #### H H #### [facility] [address] Glucose [Mass/Vol] 560 mg/dL Off scale high Fi [facility] Comment on above: Result Comment: [place] om Glucose Reference Range is dependent on time and content of last meal. Glucose of more than 200 mg/dL in a nonstressed, ambulatory subject supports the diagnosis of Diabetes Mellitus. Performed By: #### H H #### [facility] [address] [place] [address] [place] Glucose [Mass/volume] in Ser um or PlasmaOrdered By: Angela Aden on 02-13-2023 Glucose [Mass/Vol] 400 mg/dL 70-100 [facility] Comment on above: ADA recommended refe rence rangeRandom Glucose Reference Range is dependent on time and content of last meal. Glucose of more than 200 mg/dL in a nonstressed, ambulatory subject supports the diagnosis of Diabetes Mellitus. Hematocrit Auto (Bld) [Volum e fraction]Ordered By: Angela Aden on 02-13-2023 Hematocrit (Bld) [Volume fraction] 48.8 % 38.8-50.0 [facility] Hemoglobin [Mass/volume] in BloodOrdered By: Angela Aden on 02-13-2023 Hemoglobin (Bld) [Mass/Vol] 16.6 g/dL 13.0-17.0 [facility] Ketones Auto test strip (U) [Mass/Vol]Ordered By: Angela Aden on 02-13-2023 Ketones (U) [Mass/Vol] Negative Negative [facility] Laboratory - Chemistry and C hemistry - challengeOrdered By: Angela Aden on 02-13-2023 CO2 [Moles/Vol] 32.7 mmol/L 23.0-27.0 [facility] HCO3 (Bld) [Moles/Vol] 31.2 mmol/L 23.0-29.0 [facility] GFR/1.73 sq M.predicted MDRD (S/P/Bld) [Vol rate/Area] 34.441 mL/min/{1.73_m2} [facility] - CoagulationOrde red By: Angela Aden on 02-13-2023 PT Coag (PPP) [Time] 26.1 s 9.0-12.9 [facility] Leukocytes [#/volume] correc morris for nucleated erythrocytes in Blood by Automated counOrdered By: Angela Aden on 02-13-2023 WBC corrected for nucl RBC Auto (Bld) [#/Vol] 12.0 10*3/uL 4.1-10.5 [facility] Lymphocytes Auto (Bld) [#/Vo l]Ordered By: Angela Aden on 02-13-2023 Lymphocytes (Bld) [#/Vol] 2.1 10*3/uL 1.00-4.8 [facility] Lymphocytes/100 WBC Auto (Bl d)Ordered By: Angela Aden on 02-13-2023 Lymphocytes/100 WBC (Bld) 17.7 % . [facility] MCH Auto (RBC) [Entitic mass ]Ordered By: Angela Aden on 02-13-2023 MCH (RBC) [Entitic mass] 29.0 pg 27.5-35.2 [facility] MCHC Auto (RBC) [Mass/Vol]Or dered By: Angela Aden on 02-13-2023 MCHC (RBC) [Mass/Vol] 34.0 g/dL 32.5-35.6 [facility] MCV Auto (RBC) [Entitic vol] Ordered By: Angela Aden on 02-13-2023 MCV (RBC) [Entitic vol] 85.2 fL 83.5-101 [facility] Magnesiumon 02-13-2023 Magnesium [Mass/Vol] 2.5 mg/dL Normal 1.9-2.7 [facility] Comment on above: Order Comment: Comme nt add on if possible Result Comment: PERF ORMED BY: [facility] [address] [place] [address] PATHOLOGIST [employer] RAFA BYRNE M.D. Performed By: #### G ALVARADO #### Point of Care testing , Magnesium [Mass/volume] in S mary or PlasmaOrdered By: Yakov To on 02-13-2023 Magnesium [Mass/Vol] 2.5 mg/dL 1.9-2.7 [facility] Monocyte distribution width [Entitic volume] in Blood by AutomatedOrdered By: Angela Aden on 02-13-2023 Monocyte distribution width Auto (Bld) [Entitic vol] 19.79 % 0.00-20.00 [facility] Monocytes Auto (Bld) [#/Vol] Ordered By: Angela Aden on 02-13-2023 Monocytes (Bld) [#/Vol] 1.0 10*3/uL 0.0-0.8 [facility] Monocytes/100 WBC Auto (Bld) Ordered By: Angela Aden on 02-13-2023 Monocytes/100 WBC (Bld) 8.0 % . [facility] Neutrophils Auto (Bld) [#/Vo l]Ordered By: Angela Aden on 02-13-2023 Neutrophils (Bld) [#/Vol] 8.5 10*3/uL 1.8-7.7 [facility] Neutrophils/100 WBC Auto (Bl d)Ordered By: Angela Aden on 02-13-2023 Neutrophils/100 WBC (Bld) 70.8 % . [facility] Nitrite Test strip Ql (U)Ord ered By: Angela Aden on 02-13-2023 Nitrite Ql (U) Negative Negative [facility] No Panel InformationOrdered By: Angela Aden on 02-13-2023 Arterial Blood Base Excess 5.2 mmol/L -3.0-3.0 [facility] Arterial Blood Oxygen Content 9.0 mmol/L 6.6-9.7 [facility] Arterial Blood Oxygen Saturation 83.4 % 95.0-100.0 [facility] Arterial Blood Partial Pressure CO2 49.4 mm[Hg] 35.0-45.0 [facility] Arterial Blood Partial Pressure O2 48.2 mm[Hg] 80.0-100.0 [facility] Arterial Blood pH 7.42 7.35-7.45 [facility] Blood Gas Critical Value See comment [facility] Comment on above: Critical Value kajal goodman on: 02/13/2023 at 17:04 Blood Gas Sample Site Venous Fir [facility] FiO2 21 % [facility] Creatinine Clearance (Chem 39.26 [facility] Bedside Glucose Comment See comment [facility] Comment on above: Glu2: WILL NOTIFY DR /RN Nucleated erythrocytes [Pres ence] in Blood by Automated countOrdered By: Angela Aden on 02-13-2023 Nucleated RBC Auto Ql (Bld) 0.1 /100{WBC} 0-0.5 [facility] Partial Thromboplastin Timeo n 02-13-2023 aPTT Coag (Bld) [Time] 38.3 s High 25.1-36.5 [facility] Comment on above: Result Comment: PERF ORMED BY: [place] [address] PATHOLOGIST [employer] RAFA BYRNE M.D. Performed By: #### H H #### [address] Platelet mean volume Auto (B ld) [Entitic vol]Ordered By: Angela Aden on 02-13-2023 Platelet mean volume (Bld) [Entitic vol] 8.6 fL 6.6-10.1 [facility] Platelet poor plasma interna tional normalized ratio (INR) by coagulation assay (relatOrdered By: Agnela Aden on 02-13-2023 INR Coag (PPP) [Relative time] 2.3 {INR} [facility] Comment on above: INR Therapeutic Rang e [...] 02-13-2023 Platelets (Bld) [#/Vol] 218 10*3/uL 150-450 [facility] Potassium [Moles/volume] in Serum or PlasmaOrdered By: Angela Aden on 02-13-2023 Potassium [Moles/Vol] 2.9 mmol/L 3.5-5.1 [facility] Comment on above: Hemolysis is present at a level that could interfere with the result. Protein Auto test strip (U) [Mass/Vol]Ordered By: Angela Aden on 02-13-2023 Protein (U) [Mass/Vol] Negative Negative [facility] Protein [Mass/volume] in Ser um or PlasmaOrdered By: Angela Aden on 02-13-2023 Protein [Mass/Vol] 7.9 g/dL 6.4-8.9 [facility] Prothrombin Time INRon 02-13 INR Coag (PPP) [Relative time] 2.3 {INR} Normal [facility] Comment on above: Result Comment: INR Therapeutic [...] valves: 3 - 4.5 Performed By: #### G ALVARADO #### Point of Care testing , PT Coag (PPP) [Time] 26.1 s High 9.0-12.9 [facility] Comment on above: Performed By: #### G ALVARADO #### Point of Care testing , RBC Auto (Bld) [#/Vol]Ordere d By: Angela Aden on 02-13-2023 RBC (Bld) [#/Vol] 5.72 10*6/uL 3.90-5.60 [facility] Serum or plasma albumin/glob ulin mass ratioOrdered By: Angela Aden on 02-13-2023 Albumin/Globulin [Mass ratio] 1.2 {ratio} [facility] Serum or plasma anion gap de terminationOrdered By: Angela Aden on 02-13-2023 Anion gap [Moles/Vol] 15.3 mmol/L 6.0-15.0 [facility] Sodium [Moles/volume] in Ser um or PlasmaOrdered By: Angela Aden on 02-13-2023 Sodium [Moles/Vol] 129 mmol/L 136-145 [facility] Specific gravity Auto test s trip (U) [Rel density]Ordered By: Angela Aden on 02-13-2023 Specific gravity (U) [Rel density] 1.018 1.001-1.03 0 [facility] Troponin I High Sensitivityo n 02-13-2023 Troponin I High Sensitivity 69.4 pg/mL Off scale high 0.0-20.0 [facility] Comment on above: Result Comment: Crit ical Result : Called to and read back by: PROMISE VIEIRA at: 02/13/2023 18:35:16 by:[id number] PERFORMED BY: [place] [address] PATHOLOGIST [employer] RAFA BYRNE M.D. Performed By: #### H H #### [facility] [address] [place] [address] Troponin I.cardiac [Mass/vol ume] in Serum or Plasma by Detection limit <= 0.01 ng/Ordered By: Angela Aden on 02-13-2023 Troponin I.cardiac DL <= 0.01 ng/mL [Mass/Vol] 69.4 pg/mL 0.0-20.0 [facility] Comment on above: Critical Result : Ca lled to and read back by: PROMISE VIEIRA at: 02/13/2023 18:35:16 by:[id number] Urea nitrogen [Mass/volume] in Serum or PlasmaOrdered By: Angela Aden on 02-13-2023 Urea nitrogen [Mass/Vol] 53 mg/dL 06-12 [facility] Urinalysison 02-13-2023 Appearance (U) Clear Normal Clear [facility] Comment on above: Order Comment: Name Collection Type:: Clean-Voided Midstream Performed By: #### H H #### [place] [address] [place] Bilirubin,Urine Negative Normal Negative [facility] Comment on above: Order Comment: Name Collection Type:: Clean-Voided Midstream Performed By: #### H H #### [address] Color (U) Yellow Normal Yellow [facility] Comment on above: Order Comment: Name Collection Type:: Clean-Voided Midstream Performed By: #### H H #### [address] Glucose Ql (U) >=1000 High Normal [facility] Comment on above: Order Comment: Name Collection Type:: Clean-Voided Midstream Performed By: #### H H #### [address] Ketones Ql (U) Negative Normal Negative [facility] Comment on above: Order Comment: Name Collection Type:: Clean-Voided Midstream Performed By: #### H H #### [address] Leukocyte esterase Test strip Ql (U) Negative Normal Negative [facility] Comment on above: Order Comment: Name Collection Type:: Clean-Voided Midstream Performed By: #### H H #### [place] [address] [place] Nitrite,Urine Negative Normal Negative [facility] Comment on above: Order Comment: Name Collection Type:: Clean-Voided Midstream Performed By: #### H H #### [place] [address] [place] Occult Blood,Urine Negative Normal Negative [facility] Comment on above: Order Comment: Name Collection Type:: Clean-Voided Midstream Result Comment: PERF ORMED BY: [place] [address] PATHOLOGIST [employer] RAFA BYRNE M.D. Performed By: #### H H #### [place] [address] [place] pH (U) 6.0 [pH] Normal 5.0-9.0 [facility] Comment on above: Order Comment: Name Collection Type:: Clean-Voided Midstream Performed By: #### H H #### [address] Protein,Urine Negative Normal Negative [facility] Comment on above: Order Comment: Name Collection Type:: Clean-Voided Midstream Performed By: #### H H #### [address] Specificy [place],Urine 1.018 Normal 1.001-1.03 0 [facility] Comment on above: Order Comment: Name Collection Type:: Clean-Voided Midstream Performed By: #### H H #### [address] Urobilinogen,Urine Normal Normal Normal [facility] Comment on above: Order Comment: Name Collection Type:: Clean-Voided Midstream Performed By: #### H H #### [address] Urine clarity by refractomet ry automatedOrdered By: Angela Aden on 02-13-2023 Clarity Refractometry automated (U) Clear Clear [facility] Urine glucose measurement by automated test strip (mass/volume)Ordered By: Angela Aden on 02-13-2023 Glucose Auto test strip (U) [Mass/Vol] >=1000 mg/dL Normal [facility] Urine hemoglobin detection b y automated test stripOrdered By: Angela Aden on 02-13-2023 Hemoglobin Auto test strip Ql (U) Negative Negative [facility] Urine leukocyte esterase det ection by automated test stripOrdered By: Angela Aden on 02-13-2023 Leukocyte esterase Auto test strip Ql (U) Negative Negative [facility] Urobilinogen Auto test strip (U) [Mass/Vol]Ordered By: Angela Aden on 02-13-2023 Urobilinogen (U) [Mass/Vol] Normal mg/dL Normal [facility] WBC Auto (Bld) [#/Vol]Ordere d By: Angela Aden on 02-13-2023 WBC (Bld) [#/Vol] 12.0 10*3/uL 4.1-10.5 [facility] XR chest 2V*on 02-13-2023 XR chest 2V* [facility] [place] [address] [place], [place] [id number] XRay Report Signed Patient: Adwoa Porter MR#: [id number] 7 : 1955 Acct:[id number] Age/Sex: 67 / M ADM Date: 02/13/23 Loc: ER Room: Type: [facility] ER Attending Dr: Copies to: Angela [...] Archana Perez M.D.02/13/2023 5:39 PM Dictation Location: [place] [address] Transcribed By: [facility] 02/13/23 173 Dictated By: Archana Perez MD 02/13/23 173 Signed By: 02/13/23 173 Normal [facility] pH Auto test strip (U)Ordere d By: Angela Aden on 02-13-2023 pH (U) 6.0 [pH] 5.0-9.0 [facility] BNPon 01-29-2023 Natriuretic peptide B (Bld) [Mass/Vol] 6099.0 pg/mL Critically high <=900.0 [facility] Comment on above: Performed By: #### C MP, BNP ####[facility] [address] [place] [address]Dr. Emelina Navarro CBC AUTO DIFFon 01-29-2023 BASO # 0.1 103/ul Normal 0.0-0.1 [facility] Comment on above: Performed By: #### C BC ####[facility] [address] [place], [place] [address]Dr. Emelina Ramon Basophils/100 WBC (Bld) 0.3 % Normal 0.2-2.0 [facility] Comment on above: Performed By: #### C BC ####[facility] E[address]ks[address] [place], [place] [address]Dr. Emelina Ramon EO # 0.3 103/ul Normal 0.0-0.7 [facility] Comment on above: Performed By: #### C BC ####[facility] W[address]mmw[address] [place], [place] [address]Dr. Awildanitza Navarro Eosinophils/100 WBC (Bld) 1.9 % Normal 0.9-7.0 [facility] Comment on above: Performed By: #### C BC ####[facility] [address]stvih[address] [place], [place] [address]Dr. Emelina Navarro Erythrocyte distribution width (RBC) [Ratio] 18.5 % Critically high 11.0-15.0 [facility] Comment on above: Performed By: #### C BC ####[facility] Jvqxi[address]dx[address] [place], [place] [address]Dr. Emelina Navarro Hematocrit (Bld) [Volume fraction] 49.7 % Normal 42.0-54.0 [facility] Comment on above: Performed By: #### C BC ####[facility] [address]ap[address] [place], [place] [address]Dr. Emelina Navarro Hemoglobin (Bld) [Mass/Vol] 16.3 g/dL Normal 14.0-18.0 [facility] Comment on above: Performed By: #### C BC ####[facility] Srdfdojckv[address] [place], [place] [address]Dr. Emelina Navarro IG # 0.07 10e3/ul Critically high 0.00-0.03 [facility] Comment on above: Performed By: #### C BC ####[facility] [address] [place] [id number]. Emelina Navarro IG % 0.4 % Normal 0.0-0.5 [facility] Comment on above: Performed By: #### C BC ####[facility] [address] [place] [address]Dr. Emelina Navarro LYMPH # 2.6 103/ul Normal 1.2-3.8 [facility] Comment on above: Performed By: #### C BC ####[facility] R[address]spuflx[address] [place] [id number]. Emelina Navarro Lymphocytes/100 WBC (Bld) 16.9 % Critically low 20.5-60.0 [facility] Comment on above: Performed By: #### C BC ####[facility] [address] [place] [address]Dr. Emelina Navarro MANUAL DIFF REQ NO Normal [facility] Comment on above: Performed By: #### C BC ####[facility] [address]yrs[address] [place] [id number]. Emelina Navarro MCH (RBC) [Entitic mass] 28.4 pg Normal 25.9-34.0 [facility] Comment on above: Performed By: #### C BC ####[facility] Uzs[address]xdzbs[address] [place] [id number]. Emelina Navarro MCHC (RBC) [Mass/Vol] 32.8 g/dL Normal 29.9-35.2 [facility] Comment on above: Performed By: #### C BC ####[facility] Aw[address]avpacd[address]256 [place] [id number]. Emelina Navarro MCV (RBC) [Entitic vol] 86.6 fL Normal 80.0-94.0 [facility] Comment on above: Performed By: #### C BC ####[facility] Ip[address]kyc8[address] [place] [id number]. Emelina Ramon MONO # 1.2 103/ul Critically high 0.3-0.8 [facility] Comment on above: Performed By: #### C BC ####[facility] M[address]jmgb64[address] [place] [id number]. Emelina Navarro Monocytes/100 WBC (Bld) 7.7 % Normal 1.7-12.0 [facility] Comment on above: Performed By: #### C BC ####[facility] Exxsugibxn[address] [place] [id number]. Emelina Navarro NEUT # 11.4 103/ul Critically high 1.4-6.5 [facility] Comment on above: Performed By: #### C BC ####[facility] [address] [place] [address]Dr. Emelina Navarro Neutrophils/100 WBC (Bld) 72.8 % Normal 43.0-75.0 [facility] Comment on above: Performed By: #### C BC ####[facility] Bex[address] [place], [place] [address]Dr. Emelina Navarro Platelet mean volume (Bld) [Entitic vol] 9.8 fL Normal 9.5-13.5 [facility] Comment on above: Performed By: #### C BC ####[facility] [address]vmpf[address] [place], [place] [address]Dr. Emelina Navarro PLT 200 103/ul Normal 150-450 [facility] Comment on above: Performed By: #### C BC ####[facility] N[address]ts[address]fa[address] [place] [address]Dr. Emelina Navarro RBC 5.74 106/ul Normal 4.70-6.10 [facility] Comment on above: Performed By: #### C BC ####[facility] [address] [place], [place] [address]Dr. Emelina Navarro WBC 15.6 103/ul Critically high 4.0-11.0 [facility] Comment on above: Performed By: #### C BC ####[facility] V[address] [place], [place] [address]Dr. Emelina Navarro DIGOXINon 01-29-2023 DIG 1.1 ng/mL Normal 0.9-2.0 [facility] Comment on above: Performed By: #### D IG ####[facility] [address] [place] [address]Dr. Emelina Navarro Office Visiton 01-29-2023 Follow-up visit [id number] Adwoa Porter 1955 M Date Provider Department Center 01/29/2023 KendyTIMONISHASUSHIL [facility] Family History Problem Relation Age of Onset Diabetes Mother Hypertension Mother Coronary artery disease Mother Family Status - Relation Status Age at Mother Level of Service:25641 [place] OFFICE/OUTPATIENT ESTABLISHED MOD MDM 30-39 MIN Reason for Visit and Comments: Atrial Fibrillation [80] Coronary Artery Disease [187] Congestive Heart Failure [127] Normal [facility] PROF 14(COMP METB)on 023 Albumin [Mass/Vol] 3.8 g/dL Normal 3.4-5.0 [facility] Comment on above: Performed By: #### C MP, BNP ####[facility] [address]bar[address] [place] [address]Dr. Emelina Navarro Albumin/Globulin [Mass ratio] 0.9 {ratio} Normal [facility] Comment on above: Performed By: #### C MP, BNP ####[facility] [address]ct[address]wljq[address] [place] [address]Dr. Emelina Navarro ALP [Catalytic activity/Vol] 126 U/L Critically high 46-116 [facility] Comment on above: Performed By: #### C MP, BNP ####[facility] Rlrajyyhhp0[address] [place] [address]Dr. Emelina Navarro ALT [Catalytic activity/Vol] 29 U/L Normal 16-63 [facility] Comment on above: Performed By: #### C MP, BNP ####[facility] Gpiozeaqej5174 [place] [address]Dr. Emelina Navarro Anion gap [Moles/Vol] 12.2 mmol/L Normal [facility] Comment on above: Performed By: #### C MP, BNP ####[facility] Hpogfxmjeq6950 [place] [address]Dr. Emelina Navarro AST [Catalytic activity/Vol] 28 U/L Normal 15-37 [facility] Comment on above: Performed By: #### C MP, BNP ####[facility] K[address]xmqbsw28[address] [place] [address]Dr. Emelina Ramon Bilirubin [Mass/Vol] 1.8 mg/dL Critically high 0.2-1.0 [facility] Comment on above: Performed By: #### C MP, BNP ####[facility] Knyp[address] [place], [place] [address]Dr. Emelina Navarro Calcium [Mass/Vol] 9.9 mg/dL Normal 8.5-10.1 [facility] Comment on above: Performed By: #### C MP, BNP ####[facility] Liqvvzdthk[address] [place], [place] [address]Dr. Emelina Navarro Chloride [Moles/Vol] 96 mmol/L Critically low 98-107 [facility] Comment on above: Performed By: #### C MP, BNP ####[facility] Cwurtpok[address] [place], [place] [address]Dr. Emelina Ramon CO2 [Moles/Vol] 33.6 mmol/L Critically high 21.0-32.0 [facility] Comment on above: Performed By: #### C MP, BNP ####[facility] Vlxhgtgimk[address] [place], [place] [address]Dr. Emelina Ramon Creatinine [Mass/Vol] 1.66 mg/dL Critically high 0.70-1.30 [facility] Comment on above: Performed By: #### C MP, BNP ####[facility] L[address]aojmgpi[address] [place], [place] [address]Dr. Emelina Ramon EGFR-AF [place] 50 mL/min/1.73m2 Critically low >=60 [facility] Comment on above: Performed By: #### C MP, BNP ####[facility] Uihglzexuc[address] [place], [place] [address]Dr. Emelina Navarro EGFR-NON AF [place] 41 mL/min/1.73m2 Critically low >=60 [facility] Comment on above: Performed By: #### C MP, BNP ####[facility] [address]zklasvxjt[address] [place], [place] [address]Dr. Emelina Navarro Globulin (S) [Mass/Vol] 4.3 g/dL Normal [facility] Comment on above: Performed By: #### C MP, BNP ####[facility] Lyvfahfycr[address] [place], [place] [address]Dr. Emelina Navarro Glucose [Mass/Vol] 218 mg/dL Critically high 74-106 [facility] Comment on above: Performed By: #### C MP, BNP ####[facility] Iinumefwuj[address] [place], [place] [address]Dr. Emelina Navarro Potassium [Moles/Vol] 4.8 mmol/L Normal 3.5-5.1 [facility] Comment on above: Performed By: #### C MP, BNP ####[facility] Gfmevjygoe[address] [place], [place] [address]Dr. Emelina Navarro Protein [Mass/Vol] 8.1 g/dL Normal 6.4-8.2 [facility] Comment on above: Performed By: #### C MP, BNP ####[facility] H[address]wgphcgnx[address] [place], [place] [address]Dr. Emelina Navarro Sodium [Moles/Vol] 137 mmol/L Normal 136-145 [facility] Comment on above: Performed By: #### C MP, BNP ####[facility] Maiqhebngb[address] [place], [place] [address]Dr. Emelina Navarro Urea nitrogen [Mass/Vol] 31.0 mg/dL Critically high 7.0-18.0 [facility] Comment on above: Performed By: #### C MP, BNP ####[facility] [address]mlykfrpc[address] [place], [place] [address]Dr. Emelina Navarro Urea nitrogen/Creatinine [Mass ratio] 18.7 mg/mg Normal [facility] Comment on above: Performed By: #### C MP, BNP ####[facility] Wdxazb[address]ux[address] [place], [place] [address]Dr. Emelina Navarro BNPon 01-11-2023 Natriuretic peptide B (Bld) [Mass/Vol] 6024.0 pg/mL Critically high <=900.0 [facility] Comment on above: Performed By: #### B [employer] EXECUTIVE DIRECTOR, CMP ####[facility] [address]scqruga[address] [place] [id number]. Emelina Navarro CBC AUTO DIFFon 01-11-2023 BASO # 0.0 103/ul Normal 0.0-0.1 [facility] Comment on above: Performed By: #### C BC ####[facility] Aishmqtxcw2303 [place] [id number]. Emelina Navarro Basophils/100 WBC (Bld) 0.3 % Normal 0.2-2.0 [facility] Comment on above: Performed By: #### C BC ####[facility] W[address]wpldtj[address] [place], [place] [address]Dr. Emelina Navarro EO # 0.4 103/ul Normal 0.0-0.7 [facility] Comment on above: Performed By: #### C BC ####[facility] Yuofmdqlpj[address] [place], [place] [address]Dr. Emelina Ramon Eosinophils/100 WBC (Bld) 3.3 % Normal 0.9-7.0 [facility] Comment on above: Performed By: #### C BC ####[facility] M[address]kaf[address]vi[address] [place], [place] [address]Dr. Emelina Navarro Erythrocyte distribution width (RBC) [Ratio] 16.7 % Critically high 11.0-15.0 [facility] Comment on above: Performed By: #### C BC ####[facility] Lonmkqjude[address] [place], [place] [address]Dr. Emelina Navarro Hematocrit (Bld) [Volume fraction] 41.5 % Critically low 42.0-54.0 [facility] Comment on above: Performed By: #### C BC ####[facility] Cttnktayty[address] [place], [place] [address]Dr. Emelina Navarro Hemoglobin (Bld) [Mass/Vol] 13.8 g/dL Critically low 14.0-18.0 [facility] Comment on above: Performed By: #### C BC ####[facility] Z[address]amfujf[address] [place], [place] [address]Dr. Awildanitza Navarro IG # 0.04 10e3/ul Critically high 0.00-0.03 [facility] Comment on above: Performed By: #### C BC ####[facility] Tvioovmhyi[address] [place] [id number] Emelina Ramon IG % 0.3 % Normal 0.0-0.5 [facility] Comment on above: Performed By: #### C BC ####[facility] Qwqcaalwgo1317 [place] [id number] Emelina Ramon LYMPH # 1.8 103/ul Normal 1.2-3.8 [facility] Comment on above: Performed By: #### C BC ####[facility] Aoytlprrru90[address] [place] [id number] Awildanitza Navarro Lymphocytes/100 WBC (Bld) 15.1 % Critically low 20.5-60.0 [facility] Comment on above: Performed By: #### C BC ####[facility] [address]qxfysja[address] [place] [address]DrWesley Navarro MANUAL DIFF REQ NO Normal [facility] Comment on above: Performed By: #### C BC ####[facility] Gqjkrbtjnp7153 [place] [id number] Emelina Ramon MCH (RBC) [Entitic mass] 29.0 pg Normal 25.9-34.0 [facility] Comment on above: Performed By: #### C BC ####[facility] Lpuqzhdlfd0634 [place] [id number] Emelina Ramon MCHC (RBC) [Mass/Vol] 33.3 g/dL Normal 29.9-35.2 [facility] Comment on above: Performed By: #### C BC ####[facility] Chbgdkwhtr3559 [place] [id number] Emelina Ramon MCV (RBC) [Entitic vol] 87.2 fL Normal 80.0-94.0 [facility] Comment on above: Performed By: #### C BC ####[facility] Xqqbhubzxl9671 [place] [address]DrWesley Navarro MONO # 0.7 103/ul Normal 0.3-0.8 [facility] Comment on above: Performed By: #### C BC ####[facility] Vsqybdwsxm3[address] [place] [address]Dr. Emelina Navarro Monocytes/100 WBC (Bld) 5.9 % Normal 1.7-12.0 [facility] Comment on above: Performed By: #### C BC ####[facility] Ixbufjpqdx3578 [place] [address]Dr. Emelina Navarro NEUT # 8.9 103/ul Critically high 1.4-6.5 [facility] Comment on above: Performed By: #### C BC ####[facility] Agfhdfuzua0789 [place] [address]Dr. Emelina Navarro Neutrophils/100 WBC (Bld) 75.1 % Critically high 43.0-75.0 [facility] Comment on above: Performed By: #### C BC ####[facility] Eatcuvbodk16[address] [place] [id number]. Emelina Navarro Platelet mean volume (Bld) [Entitic vol] 11.7 fL Normal 9.5-13.5 [facility] Comment on above: Performed By: #### C BC ####[facility] Aqvohpajex5[address] [place] [address]Dr. Emelina Navarro PLT 124 103/ul Critically low 150-450 [facility] Comment on above: Performed By: #### C BC ####[facility] Cuscdhnjfe5545 [place] [id number]. Emelina Navarro RBC 4.76 106/ul Normal 4.70-6.10 [facility] Comment on above: Performed By: #### C BC ####[facility] Rmcwrkfhhl2922 [place] [address]Dr. Emelina Navarro WBC 11.8 103/ul Critically high 4.0-11.0 [facility] Comment on above: Performed By: #### C BC ####[facility] Avksufwgnn69[address] [place] [id number]. Emelina Ramon POINT OF CARE GLUCOSEon 02-2 Glucose [Mass/Vol] 339 mg/dL Critically high 74-106 [facility] Comment on above: Performed By: #### P OCGLUC ####[facility] Glchueeqnq4[address] [place] [address]Dr. Emelina Navarro PROF 14(COMP METB)on 023 Albumin [Mass/Vol] 3.3 g/dL Critically low 3.4-5.0 [facility] Comment on above: Performed By: #### B [employer] EXECUTIVE DIRECTOR, CMP ####[facility] M[address]jhxsxpi[address] [place], [place] [address]Dr. Emelina Navarro Albumin/Globulin [Mass ratio] 0.8 {ratio} Normal [facility] Comment on above: Performed By: #### B [employer] EXECUTIVE DIRECTOR, CMP ####[facility] [address]qtormxxiw[address] [place], [place] [address]Dr. Emelina Navarro ALP [Catalytic activity/Vol] 163 U/L Critically high 46-116 [facility] Comment on above: Performed By: #### B [employer]OC[employer] EXECUTIVE DIRECTOR, CMP ####[facility] Jpjtfoiobs[address] [place], [place] [address]Dr. Emelina Navarro ALT [Catalytic activity/Vol] 27 U/L Normal 16-63 [facility] Comment on above: Performed By: #### B [employer] EXECUTIVE DIRECTOR, CMP ####[facility] Xjqmeyggrj[address] [place], [place] [address]Dr. Emelina Navarro Anion gap [Moles/Vol] 10.5 mmol/L Normal [facility] Comment on above: Performed By: #### B [employer] EXECUTIVE DIRECTOR, CMP ####[facility] Vctyguqaxq[address] [place], [place] [address]Dr. Emelina Navarro AST [Catalytic activity/Vol] 28 U/L Normal 15-37 [facility] Comment on above: Performed By: #### B [employer] EXECUTIVE DIRECTOR, CMP ####[facility] Ctclxcnsqx[address] [place], [place] [address]Dr. Emelina Navarro Bilirubin [Mass/Vol] 1.3 mg/dL Critically high 0.2-1.0 [facility] Comment on above: Performed By: #### B [employer] ASSOCIATION EXECUTIVE DIRECTOR, CMP ####[facility] [address]jwrbllp[address] [place], [place] [address]Dr. Emelina Navarro Calcium [Mass/Vol] 9.0 mg/dL Normal 8.5-10.1 [facility] Comment on above: Performed By: #### B [employer] EXECUTIVE DIRECTOR, CMP ####[facility] E[address]rmjr6[address] [place] [address]Dr. Emelina Navarro Chloride [Moles/Vol] 91 mmol/L Critically low 98-107 [facility] Comment on above: Performed By: #### B [employer] EXECUTIVE DIRECTOR, CMP ####[facility] Tsmatatpet[address] [place], [place] [address]Dr. Emelina Navarro CO2 [Moles/Vol] 32.9 mmol/L Critically high 21.0-32.0 [facility] Comment on above: Performed By: #### B [employer]OC[employer] EXECUTIVE DIRECTOR, CMP ####[facility] Fmodtxycwy[address] [place], [place] [address]Dr. Emelina Navarro Creatinine [Mass/Vol] 1.84 mg/dL Critically high 0.70-1.30 [facility] Comment on above: Performed By: #### B N[employer]ES[employer] ASSOCIATION EXECUTIVE DIRECTOR, CMP ####[facility] Romjljvdhg[address] [place], [place] [address]Dr. Emelina Navarro EGFR-AF [place] 45 mL/min/1.73m2 Critically low >=60 [facility] Comment on above: Performed By: #### B NUR[employer]ES[employer]OCIATION EXECUTIVE DIRECTOR, CMP ####[facility] Hmktwxedep[address] [place], [place] [address]Dr. Emelina Navarro EGFR-NON AF [place] 37 mL/min/1.73m2 Critically low >=60 [facility] Comment on above: Performed By: #### B N[employer]ES[employer] ASSOCIATION EXECUTIVE DIRECTOR, CMP ####[facility] [address] [place] [address]Dr. Emelina Navarro Globulin (S) [Mass/Vol] 4.3 g/dL Normal [facility] Comment on above: Performed By: #### B NUR[employer]ES[employer] ASSOCIATION EXECUTIVE DIRECTOR, CMP ####[facility] [address]tyge[address] [place] [address]Dr. Emelina Navarro Glucose [Mass/Vol] 305 mg/dL Critically high 74-106 [facility] Comment on above: Performed By: #### B NUR[employer]ES' ASSOCIATION EXECUTIVE DIRECTOR, CMP ####[facility] Pvkxhzglah[address] [place], [place] [address]Dr. Emelina Navarro Potassium [Moles/Vol] 3.4 mmol/L Critically low 3.5-5.1 [facility] Comment on above: Performed By: #### B N[employer] ASSOCIATION EXECUTIVE DIRECTOR, CMP ####[facility] Aziayazovb23[address] [place], [place] [address]Dr. Emelina Navarro Protein [Mass/Vol] 7.6 g/dL Normal 6.4-8.2 [facility] Comment on above: Performed By: #### B NUR[employer]ES[employer] ASSOCIATION EXECUTIVE DIRECTOR, CMP ####[facility] Gwlnhcrevx1537[address] [place], [place] [address]Dr. Emelina Navarro Sodium [Moles/Vol] 131 mmol/L Critically low 136-145 [facility] Comment on above: Performed By: #### B NUR[employer]ES[employer] ASSOCIATION EXECUTIVE DIRECTOR, CMP ####[facility] Nkwhsjrgmz6[address] [place], [place] [address]Dr. Emelina Navarro Urea nitrogen [Mass/Vol] 62.0 mg/dL Critically high 7.0-18.0 [facility] Comment on above: Performed By: #### B N[employer] ASSOCIATION EXECUTIVE DIRECTOR, CMP ####[facility] Zwcqzhxokm[address] [place], [place] [address]Dr. Emelina Navarro Urea nitrogen/Creatinine [Mass ratio] 33.7 mg/mg Normal [facility] Comment on above: Performed By: #### B N[employer] ASSOCIATION EXECUTIVE DIRECTOR, CMP ####[facility] Udcnclqpdr[address] [place], [place] [address]Dr. Emelina Navarro BNPon 01-10-2023 Natriuretic peptide B (Bld) [Mass/Vol] 8763.0 pg/mL Critically high <=900.0 [facility] Comment on above: Performed By: #### C MP, BNP ####[facility] Wyglvgxlwk0133[address] [place], [place] [address]Dr. Emelina Navarro CBC AUTO DIFFon 01-10-2023 BASO # 0.0 103/ul Normal 0.0-0.1 [facility] Comment on above: Performed By: #### C BC ####[facility] Snkjfyeumc4[address] [place], [place] [address]Dr. Emelina Navarro Basophils/100 WBC (Bld) 0.4 % Normal 0.2-2.0 [facility] Comment on above: Performed By: #### C BC ####[facility] Ngqzrvxuiq65[address] [place], [place] [address]Dr. Emelina Navarro EO # 0.3 103/ul Normal 0.0-0.7 [facility] Comment on above: Performed By: #### C BC ####[facility] Znwzrlldlo63[address] [place], [place] [address]Dr. Emelina Navarro Eosinophils/100 WBC (Bld) 2.8 % Normal 0.9-7.0 [facility] Comment on above: Performed By: #### C BC ####[facility] Uugckcfpuf6143[address] [place], [place] [address]Dr. Emelina Navarro Erythrocyte distribution width (RBC) [Ratio] 17.2 % Critically high 11.0-15.0 [facility] Comment on above: Performed By: #### C BC ####[facility] Vnayrdmlcb236[address] [place], [place] [address]Dr. Emelina Navarro Hematocrit (Bld) [Volume fraction] 42.1 % Normal 42.0-54.0 [facility] Comment on above: Performed By: #### C BC ####[facility] Mfdkysimwu7427[address] [place], [place] [address]Dr. Emelina Navarro Hemoglobin (Bld) [Mass/Vol] 13.3 g/dL Critically low 14.0-18.0 [facility] Comment on above: Performed By: #### C BC ####[facility] Pojimjhesk[address] [place], [place] [address]Dr. Emelina Navarro IG # 0.05 10e3/ul Critically high 0.00-0.03 [facility] Comment on above: Performed By: #### C BC ####[facility] Ubgkhgzgky[address] [place], [place] [address]Dr. Emelina Navarro IG % 0.4 % Normal 0.0-0.5 [facility] Comment on above: Performed By: #### C BC ####[facility] Hqlgpppzjk5934[address] [place], [place] [address]Dr. Emelina Navarro LYMPH # 1.7 103/ul Normal 1.2-3.8 [facility] Comment on above: Performed By: #### C BC ####[facility] W[address]qznnzw30[address] [place] [address]Dr. Awildanitza Navarro Lymphocytes/100 WBC (Bld) 14.8 % Critically low 20.5-60.0 [facility] Comment on above: Performed By: #### C BC ####[facility] [address] [place] [address]Dr. Emelina Navarro MANUAL DIFF REQ NO Normal [facility] Comment on above: Performed By: #### C BC ####[facility] Nxiqdryomr[address] [place] [address]Dr. Emelina Navarro MCH (RBC) [Entitic mass] 28.4 pg Normal 25.9-34.0 [facility] Comment on above: Performed By: #### C BC ####[facility] Erlpcejlwt[address] [place], [place] [address]Dr. Awildanitza Ramon MCHC (RBC) [Mass/Vol] 31.6 g/dL Normal 29.9-35.2 [facility] Comment on above: Performed By: #### C BC ####[facility] Mqxdtcgmos8[address] [place], [place] [address]Dr. Emelina Navarro MCV (RBC) [Entitic vol] 89.8 fL Normal 80.0-94.0 [facility] Comment on above: Performed By: #### C BC ####[facility] Abxizqdafc2[address] [place] [address]DrWesley Navarro MONO # 0.9 103/ul Critically high 0.3-0.8 [facility] Comment on above: Performed By: #### C BC ####[facility] Vsixofqjhb3420[address] [place], [place] [address]DrWesley Navarro Monocytes/100 WBC (Bld) 7.6 % Normal 1.7-12.0 [facility] Comment on above: Performed By: #### C BC ####[facility] Wiokibaxwe0846[address] [place], [place] [address]Dr. Emelina Navarro NEUT # 8.4 103/ul Critically high 1.4-6.5 [facility] Comment on above: Performed By: #### C BC ####[facility] [address]zrnurbvm[address] [place] [address]Dr. Emelina Navarro Neutrophils/100 WBC (Bld) 74.0 % Normal 43.0-75.0 [facility] Comment on above: Performed By: #### C BC ####[facility] Wygyuivlxy8[address] [place] [address]Dr. Awildanitza Ramon Platelet mean volume (Bld) [Entitic vol] 11.1 fL Normal 9.5-13.5 [facility] Comment on above: Performed By: #### C BC ####[facility] Iubvhkxarz[address] [place] [address]Dr. Emelina Navarro PLT 111 103/ul Critically low 150-450 [facility] Comment on above: Performed By: #### C BC ####[facility] J[address]ms[address]ur[address] [place] [address]Dr. Emelina Navarro RBC 4.69 106/ul Critically low 4.70-6.10 [facility] Comment on above: Performed By: #### C BC ####[facility] Ncmvliusif6[address] [place] [address]Dr. Awildanitza Ramon WBC 11.4 103/ul Critically high 4.0-11.0 [facility] Comment on above: Performed By: #### C BC ####[facility] Lzxibvbewl8[address] [place] [address]DrWesley Navarro PROF 14(COMP METB)on 023 Albumin [Mass/Vol] 3.3 g/dL Critically low 3.4-5.0 [facility] Comment on above: Performed By: #### C MP, BNP ####[facility] Dlbcjekbho[address] [place] [address]Dr. Emelina Navarro Albumin/Globulin [Mass ratio] 0.8 {ratio} Normal [facility] Comment on above: Performed By: #### C MP, BNP ####[facility] Sal[address]kxrq[address] [place] [id number]. Emelina Navarro ALP [Catalytic activity/Vol] 165 U/L Critically high 46-116 [facility] Comment on above: Performed By: #### C MP, BNP ####[facility] Byzxjvcbbz037[address] [place] [address]Dr. Emelina Navarro ALT [Catalytic activity/Vol] 27 U/L Normal 16-63 [facility] Comment on above: Performed By: #### C MP, BNP ####[facility] Xalcgrukie58[address] [place], [place] [address]Dr. Emelina Navarro Anion gap [Moles/Vol] 9.5 mmol/L Normal [facility] Comment on above: Performed By: #### C MP, BNP ####[facility] Wmppxuzlbk70[address] [place], [place] [address]Dr. Emelina Navarro AST [Catalytic activity/Vol] 24 U/L Normal 15-37 [facility] Comment on above: Performed By: #### C MP, BNP ####[facility] Fqjbtibtzr0515[address] [place], [place] [address]Dr. Emelina Navarro Bilirubin [Mass/Vol] 1.3 mg/dL Critically high 0.2-1.0 [facility] Comment on above: Performed By: #### C MP, BNP ####[facility] Ypvvlzxjnl[address] [place], [place] [address]Dr. Emelina Navarro Calcium [Mass/Vol] 9.3 mg/dL Normal 8.5-10.1 [facility] Comment on above: Performed By: #### C MP, BNP ####[facility] [address]qzhr[address] [place] [address]Dr. Emelina Navarro Chloride [Moles/Vol] 93 mmol/L Critically low 98-107 [facility] Comment on above: Performed By: #### C MP, BNP ####[facility] Egcjzktkag[address] [place], [place] [address]Dr. Emelina Navarro CO2 [Moles/Vol] 36.4 mmol/L Critically high 21.0-32.0 [facility] Comment on above: Performed By: #### C MP, BNP ####[facility] Wxfjbvxfdo18[address] [place] [id number]. Emelina Navarro Creatinine [Mass/Vol] 1.99 mg/dL Critically high 0.70-1.30 [facility] Comment on above: Performed By: #### C MP, BNP ####[facility] Ssmutwamke[address] [place] [id number]. Emelina Navarro EGFR-AF [place] 41 mL/min/1.73m2 Critically low >=60 [facility] Comment on above: Performed By: #### C MP, BNP ####[facility] Zeunnozhli60[address] [place] [address]Dr. Emelina Ramon EGFR-NON AF [place] 34 mL/min/1.73m2 Critically low >=60 [facility] Comment on above: Performed By: #### C MP, BNP ####[facility] Igtaxddjrp6954[address] [place], [place] [address]Dr. Emelina Ramon Globulin (S) [Mass/Vol] 4.2 g/dL Normal [facility] Comment on above: Performed By: #### C MP, BNP ####[facility] Vgontkblqd2337[address] [place], [place] [address]Dr. Emelina Ramon Glucose [Mass/Vol] 311 mg/dL Critically high 74-106 [facility] Comment on above: Performed By: #### C MP, BNP ####[facility] Khcfzayles[address] [place], [place] [address]Dr. Emelina Ramon Potassium [Moles/Vol] 3.9 mmol/L Normal 3.5-5.1 [facility] Comment on above: Performed By: #### C MP, BNP ####[facility] Bvhcs[address]byy[address] [place], [place] [address]Dr. Emelina Navarro Protein [Mass/Vol] 7.5 g/dL Normal 6.4-8.2 [facility] Comment on above: Performed By: #### C MP, BNP ####[facility] Vsoljjikhu3924[address] [place], [place] [address]Dr. Awildanitza Ramon Sodium [Moles/Vol] 135 mmol/L Critically low 136-145 [facility] Comment on above: Performed By: #### C MP, BNP ####[facility] Rxfanhtqzh6913[address] [place], [place] [address]Dr. Emelina Navarro Urea nitrogen [Mass/Vol] 57.0 mg/dL Critically high 7.0-18.0 [facility] Comment on above: Performed By: #### C MP, BNP ####[facility] Dhlzdrffsn[address] [place], [place] [address]Dr. Emelina Navarro Urea nitrogen/Creatinine [Mass ratio] 28.6 mg/mg Normal [facility] Comment on above: Performed By: #### C MP, BNP ####[facility] Vptbgkudsz2112[address] [place], [place] [address]Dr. Emelina Navarro BNPon 01-09-2023 Natriuretic peptide B (Bld) [Mass/Vol] 9097.0 pg/mL Critically high <=900.0 [facility] Comment on above: Performed By: #### B NURSES' ASSOCIATION EXECUTIVE DIRECTOR, CMP ####[facility] Iecdvoqlho039[address] [place], [place] [address]Dr. Emelina Navarro CBC AUTO DIFFon 01-09-2023 BASO # 0.0 103/ul Normal 0.0-0.1 [facility] Comment on above: Performed By: #### C BC ####[facility] Tmwplrncme3173[address] [place], [place] [address]Dr. Emelina Navarro Basophils/100 WBC (Bld) 0.2 % Normal 0.2-2.0 [facility] Comment on above: Performed By: #### C BC ####[facility] Ymavodvuux0[address] [place], [place] [address]Dr. Emelina Navarro EO # 0.2 103/ul Normal 0.0-0.7 [facility] Comment on above: Performed By: #### C BC ####[facility] Hmzcnfksdh79[address] [place], [place] [address]Dr. Emelina Navarro Eosinophils/100 WBC (Bld) 2.1 % Normal 0.9-7.0 [facility] Comment on above: Performed By: #### C BC ####[facility] Yvubqujmxk28[address] [place] [address]Dr. Emelina Navarro Erythrocyte distribution width (RBC) [Ratio] 17.1 % Critically high 11.0-15.0 [facility] Comment on above: Performed By: #### C BC ####[facility] Dmpxusyhef27[address] [place], [place] [address]Dr. Emelina Navarro Hematocrit (Bld) [Volume fraction] 40.5 % Critically low 42.0-54.0 [facility] Comment on above: Performed By: #### C BC ####[facility] Pyjmeshubm[address] [place], [place] [address]Dr. Awildanitza Navarro Hemoglobin (Bld) [Mass/Vol] 13.0 g/dL Critically low 14.0-18.0 [facility] Comment on above: Performed By: #### C BC ####[facility] Jnquewtiod254[address] [place], [place] [address]Dr. Emelina Navarro IG # 0.06 10e3/ul Critically high 0.00-0.03 [facility] Comment on above: Performed By: #### C BC ####[facility] Hmnuzbwfah14[address] [place], [place] [address]Dr. Emelina Navarro IG % 0.5 % Normal 0.0-0.5 [facility] Comment on above: Performed By: #### C BC ####[facility] Yjhsfighfo3462[address] [place], [place] [address]Dr. Emelina Navarro LYMPH # 1.6 103/ul Normal 1.2-3.8 [facility] Comment on above: Performed By: #### C BC ####[facility] Zczdttvvtc8[address] [place], [place] [address]Dr. Emelina Navarro Lymphocytes/100 WBC (Bld) 14.1 % Critically low 20.5-60.0 [facility] Comment on above: Performed By: #### C BC ####[facility] Dvfecssoou8[address] [place], [place] [address]Dr. Emelina Navarro MANUAL DIFF REQ NO Normal [facility] Comment on above: Performed By: #### C BC ####[facility] Lrjegwulkz45[address] [place], [place] [address]Dr. Emelina Navarro MCH (RBC) [Entitic mass] 28.4 pg Normal 25.9-34.0 [facility] Comment on above: Performed By: #### C BC ####[facility] Qrgdblbaeo47[address] [place] [id number]. Emelina Navarro MCHC (RBC) [Mass/Vol] 32.1 g/dL Normal 29.9-35.2 [facility] Comment on above: Performed By: #### C BC ####[facility] Tthbcyruzi32[address] [place] [phone]. Emelina Navarro MCV (RBC) [Entitic vol] 88.4 fL Normal 80.0-94.0 [facility] Comment on above: Performed By: #### C BC ####[facility] S[address]qvmfqve04[address] [place] [address]Dr. Emelina Navarro MONO # 0.9 103/ul Critically high 0.3-0.8 [facility] Comment on above: Performed By: #### C BC ####[facility] Yapflmlwnl05[address] [place] [address]Dr. Emelina Navarro Monocytes/100 WBC (Bld) 8.0 % Normal 1.7-12.0 [facility] Comment on above: Performed By: #### C BC ####[facility] Kjmytezttw24[address] [place] [id number]. Emelina Navarro NEUT # 8.6 103/ul Critically high 1.4-6.5 [facility] Comment on above: Performed By: #### C BC ####[facility] Uygfgpvclg8361 [place] [phone]. Emelina Navarro Neutrophils/100 WBC (Bld) 75.1 % Critically high 43.0-75.0 [facility] Comment on above: Performed By: #### C BC ####[facility] Zdxujhgnou7[address] [place] [phone]. Emelina Navarro Platelet mean volume (Bld) [Entitic vol] 11.2 fL Normal 9.5-13.5 [facility] Comment on above: Performed By: #### C BC ####[facility] Vgcaasiors37[address] [place], [place] [address]Vb. Emelina Navarro PLT 99 103/ul Critically low 150-450 [facility] Comment on above: Performed By: #### C BC ####[facility] Ylvgpxluza6816 [place], [place] [address]Sd. Emelina Navarro RBC 4.58 106/ul Critically low 4.70-6.10 [facility] Comment on above: Performed By: #### C BC ####[facility] Coqhfnxuuk4[address] [place] [id number]. Emelina Navarro WBC 11.5 103/ul Critically high 4.0-11.0 [facility] Comment on above: Performed By: #### C BC ####[facility] Qvkuamjqdw4[address] [place] [address]Dr. Emelina Navarro CT HEAD WO CONon 01-09-2023 CT HEAD WO CON Normal [facility] PROF 14(COMP METB)on 023 Albumin [Mass/Vol] 3.2 g/dL Critically low 3.4-5.0 [facility] Comment on above: Performed By: #### B NURSES' ASSOCIATION EXECUTIVE DIRECTOR, CMP ####[facility] Zseocmwvpx12[address] [place] [address]Dr. Emelina Navarro Albumin/Globulin [Mass ratio] 0.8 {ratio} Normal [facility] Comment on above: Performed By: #### B NURSES' ASSOCIATION EXECUTIVE DIRECTOR, CMP ####[facility] Xxtukkfjgf4240 [place] [id number]. Emelina Navarro ALP [Catalytic activity/Vol] 150 U/L Critically high 46-116 [facility] Comment on above: Performed By: #### B NURSES' ASSOCIATION EXECUTIVE DIRECTOR, CMP ####[facility] Tvgegywfrp17[address] [place] [address]Dr. Emelina Ramon ALT [Catalytic activity/Vol] 27 U/L Normal 16-63 [facility] Comment on above: Performed By: #### B NURSES' ASSOCIATION EXECUTIVE DIRECTOR, CMP ####[facility] Rohuyjaqiv69[address] [place] [phone]. Awildanitza Ramon Anion gap [Moles/Vol] 9.7 mmol/L Normal [facility] Comment on above: Performed By: #### B NURSES' ASSOCIATION EXECUTIVE DIRECTOR, CMP ####[facility] Daliufbxys15[address] [place], [place] [address]Dr. Emelina Navarro AST [Catalytic activity/Vol] 29 U/L Normal 15-37 [facility] Comment on above: Performed By: #### B NURSES' ASSOCIATION EXECUTIVE DIRECTOR, CMP ####[facility] Hydlhkfjhb[address] [place], [place] [address]Dr. Emelina Navarro Bilirubin [Mass/Vol] 1.3 mg/dL Critically high 0.2-1.0 [facility] Comment on above: Performed By: #### B NURSES' ASSOCIATION EXECUTIVE DIRECTOR, CMP ####[facility] Chhopsgxgp1024[address] [place], [place] [address]Dr. Awildanitza Navarro Calcium [Mass/Vol] 9.0 mg/dL Normal 8.5-10.1 [facility] Comment on above: Performed By: #### B NURSES' ASSOCIATION EXECUTIVE DIRECTOR, CMP ####[facility] Sncqmsmlsx2285[address] [place], [place] [address]Dr. Emelina Navarro Chloride [Moles/Vol] 93 mmol/L Critically low 98-107 [facility] Comment on above: Performed By: #### B NURSES' ASSOCIATION EXECUTIVE DIRECTOR, CMP ####[facility] Onwfehqqsc8210[address] [place], [place] [address]Dr. Emelina Navarro CO2 [Moles/Vol] 33.6 mmol/L Critically high 21.0-32.0 [facility] Comment on above: Performed By: #### B NURSES' ASSOCIATION EXECUTIVE DIRECTOR, CMP ####[facility] Bokihffsbg706[address] [place], [place] [address]Dr. Awildanitza Ramon Creatinine [Mass/Vol] 1.75 mg/dL Critically high 0.70-1.30 [facility] Comment on above: Performed By: #### B NURSES' ASSOCIATION EXECUTIVE DIRECTOR, CMP ####[facility] Ngyuzvymxt3664[address] [place], [place] [address]Dr. Awildanitza Ramon EGFR-AF [place] 47 mL/min/1.73m2 Critically low >=60 [facility] Comment on above: Performed By: #### B NURSES' ASSOCIATION EXECUTIVE DIRECTOR, CMP ####[facility] Nmokrvbsjl330[address] [place], [place] [address]Dr. Emelina Navarro EGFR-NON AF [place] 39 mL/min/1.73m2 Critically low >=60 [facility] Comment on above: Performed By: #### B NURSES' ASSOCIATION EXECUTIVE DIRECTOR, CMP ####[facility] Ctfymouxbk0332 [place] [address]Dr. Emelina Navarro Globulin (S) [Mass/Vol] 4.1 g/dL Normal [facility] Comment on above: Performed By: #### B NURSES' ASSOCIATION EXECUTIVE DIRECTOR, CMP ####[facility] Vzojtcerzt60[address] [place], [place] [address]Dr. Emelina Navarro Glucose [Mass/Vol] 235 mg/dL Critically high 74-106 [facility] Comment on above: Performed By: #### B NURSES' ASSOCIATION EXECUTIVE DIRECTOR, CMP ####[facility] Ipcsegdcjd1436[address] [place], [place] [address]Dr. Emelina Navarro Potassium [Moles/Vol] 3.3 mmol/L Critically low 3.5-5.1 [facility] Comment on above: Performed By: #### B NURSES' ASSOCIATION EXECUTIVE DIRECTOR, CMP ####[facility] Nszyoitykk1583[address] [place], [place] [address]Dr. Emelina Navarro Protein [Mass/Vol] 7.3 g/dL Normal 6.4-8.2 [facility] Comment on above: Performed By: #### B NURSES' ASSOCIATION EXECUTIVE DIRECTOR, CMP ####[facility] Xapmfbmcmh3436[address] [place], [place] [address]Dr. Emelina Navarro Sodium [Moles/Vol] 133 mmol/L Critically low 136-145 Th [facility] Comment on above: Performed By: #### B NURSES' ASSOCIATION EXECUTIVE DIRECTOR, CMP ####[facility] Mzfpsfouvu5988[address] [place], [place] [address]Dr. Emelina Navarro Urea nitrogen [Mass/Vol] 50.0 mg/dL Critically high 7.0-18.0 [facility] Comment on above: Performed By: #### B NURSES' ASSOCIATION EXECUTIVE DIRECTOR, CMP ####[facility] Tvimfegsmd7890[address] [place], [place] [address]Dr. Emelina Navarro Urea nitrogen/Creatinine [Mass ratio] 28.6 mg/mg Normal [facility] Comment on above: Performed By: #### B NURSES' ASSOCIATION EXECUTIVE DIRECTOR, CMP ####[facility] Dndcpaummf4425 [place] [phone]. Emelina Ramon BNPon 01-08-2023 Natriuretic peptide B (Bld) [Mass/Vol] 8174.0 pg/mL Critically high <=900.0 [facility] Comment on above: Performed By: #### B NURSES' ASSOCIATION EXECUTIVE DIRECTOR ####[facility] Eguldgmljl88[address] [place], [place] [address]Dr. Emelina Ramon CBC AUTO DIFFon 01-08-2023 BASO # 0.0 103/ul Normal 0.0-0.1 [facility] Comment on above: Performed By: #### C BC ####[facility] Qclyjyidfc[address] [place], [place] [address]Dr. Emelina Navarro Basophils/100 WBC (Bld) 0.2 % Normal 0.2-2.0 [facility] Comment on above: Performed By: #### C BC ####[facility] Quanmxvdel[address] [place], [place] [address]Dr. Emelina Navarro EO # 0.2 103/ul Normal 0.0-0.7 [facility] Comment on above: Performed By: #### C BC ####[facility] Kyiypwfbie20[address] [place], [place] [address]Dr. Emelina Navarro Eosinophils/100 WBC (Bld) 1.7 % Normal 0.9-7.0 [facility] Comment on above: Performed By: #### C BC ####[facility] Asoobkaiql[address] [place], [place] [address]Dr. Emelina Navarro Erythrocyte distribution width (RBC) [Ratio] 17.4 % Critically high 11.0-15.0 [facility] Comment on above: Performed By: #### C BC ####[facility] [facility] [address] [place], [place] [address]Dr. Emelina Navarro Hematocrit (Bld) [Volume fraction] 40.8 % Critically low 42.0-54.0 [facility] Comment on above: Performed By: #### C BC ####[facility] Gzvfzvvirz[address] [place], [place] [address]Dr. Emelina Navarro Hemoglobin (Bld) [Mass/Vol] 13.3 g/dL Critically low 14.0-18.0 [facility] Comment on above: Performed By: #### C BC ####[facility] Qlewqmserm5[address] [place] [address]DrWesley Navarro IG # 0.05 10e3/ul Critically high 0.00-0.03 [facility] Comment on above: Performed By: #### C BC ####[facility] Nybivypnsd3935 [place] [address]DrWesley Navarro IG % 0.4 % Normal 0.0-0.5 [facility] Comment on above: Performed By: #### C BC ####[facility] Qdvomsuemf90[address] [place], [place] [address]DrWesley Navarro LYMPH # 1.7 103/ul Normal 1.2-3.8 [facility] Comment on above: Performed By: #### C BC ####[facility] Lshcensghg4413 [place] [address]DrWesley Navarro Lymphocytes/100 WBC (Bld) 12.5 % Critically low 20.5-60.0 [facility] Comment on above: Performed By: #### C BC ####[facility] Arkwweqsss60[address] [place] [address]DrWesley Navarro MANUAL DIFF REQ NO Normal [facility] Comment on above: Performed By: #### C BC ####[facility] Cwfapokyog9668 [place] [address]DrWesley Navarro MCH (RBC) [Entitic mass] 29.1 pg Normal 25.9-34.0 [facility] Comment on above: Performed By: #### C BC ####[facility] Xkqxatnenx1695 [place] [address]DrWesley Navarro MCHC (RBC) [Mass/Vol] 32.6 g/dL Normal 29.9-35.2 [facility] Comment on above: Performed By: #### C BC ####[facility] Sfqyvsgzir6398 [place] [address]DrWesley Navarro MCV (RBC) [Entitic vol] 89.3 fL Normal 80.0-94.0 [facility] Comment on above: Performed By: #### C BC ####[facility] Rmjluomhjt1189 [place] [id number] Navarro MONO # 1.0 103/ul Critically high 0.3-0.8 [facility] Comment on above: Performed By: #### C BC ####[facility] Otlvwflgkb5544 [place] [id number] Navarro Monocytes/100 WBC (Bld) 7.6 % Normal 1.7-12.0 [facility] Comment on above: Performed By: #### C BC ####[facility] Wxkknubjeg6185 [place] [address]DrWesley Navarro NEUT # 10.3 103/ul Critically high 1.4-6.5 [facility] Comment on above: Performed By: #### C BC ####[facility] Nairbttf[address] [place], [place] [address]DrWesley Navarro Neutrophils/100 WBC (Bld) 77.6 % Critically high 43.0-75.0 [facility] Comment on above: Performed By: #### C BC ####[facility] Evpgtuxqzx[address] [place], [place] [id number] Navarro Platelet mean volume (Bld) [Entitic vol] 11.0 fL Normal 9.5-13.5 [facility] Comment on above: Performed By: #### C BC ####[facility] Fwyhibfubv8156 [place] [phone]. Emelina Navarro PLT 106 103/ul Critically low 150-450 [facility] Comment on above: Performed By: #### C BC ####[facility] Eamllupdyo8583 [place] [phone] Navarro RBC 4.57 106/ul Critically low 4.70-6.10 [facility] Comment on above: Performed By: #### C BC ####[facility] Bpzurfvghs2689 [place] [phone] Navarro WBC 13.3 103/ul Critically high 4.0-11.0 [facility] Comment on above: Performed By: #### C BC ####[facility] Okaurpkfie4944 [place] [address]DrWesley Emelina Ramon CULTURE URINEon 01-08-2023 CULTURE URINE Culture Observations : LIGHT GROWTH OF MIXED SKIN CEDRIC. NO POTENTIAL PATHOGENS SEEN. Normal [facility] Comment on above: Performed By: #### U RCX ####[facility] Upxzicbqfb6330 [place] [id number] Navarro ECHOCARDIO M/2D COMPLETEon 0 01-08-2023 ECHOCARDIO M/2D COMPLETE Normal [facility] PROCALCITONINon 01-08-2023 Procalcitonin 0.10 ng/mL Critically high 0.00-0.08 [facility] Comment on above: Result Comment: .A [...] are obtained. Performed By: #### P CTLC ####[facility] Ehjconeuen7990 [place] [address]DrWesley Navarro PROF 14(COMP METB)on 023 Albumin [Mass/Vol] 3.3 g/dL Critically low 3.4-5.0 Th [facility] Comment on above: Performed By: #### C MP ####[facility] Rckdsgxvcf3409 [place] [address]Dr. Emelina Navarro Albumin/Globulin [Mass ratio] 0.8 {ratio} Normal [facility] Comment on above: Performed By: #### C MP ####[facility] Rmipuhjuzh2280 [place] [address]Dr. Emelina Navarro ALP [Catalytic activity/Vol] 140 U/L Critically high 46-116 [facility] Comment on above: Performed By: #### C MP ####[facility] Llvfmsfsxi4174 [place] [address]Dr. Emelina Navarro ALT [Catalytic activity/Vol] 22 U/L Normal 16-63 [facility] Comment on above: Performed By: #### C MP ####[facility] Mrfrxlcqek[address] [place], [place] [address]Dr. Emelina Navarro Anion gap [Moles/Vol] 13.1 mmol/L Normal [facility] Comment on above: Performed By: #### C MP ####[facility] Wmtrlyjkni7[address] [place], [place] [address]Dr. Emelina Navarro AST [Catalytic activity/Vol] 21 U/L Normal 15-37 [facility] Comment on above: Performed By: #### C MP ####[facility] Iyhlvkrytt16[address] [place], [place] [address]Dr. Emelina Navarro Bilirubin [Mass/Vol] 1.3 mg/dL Critically high 0.2-1.0 [facility] Comment on above: Performed By: #### C MP ####[facility] Ylmsnbnyhs[address] [place], [place] [address]Dr. Emelina Navarro Calcium [Mass/Vol] 9.1 mg/dL Normal 8.5-10.1 [facility] Comment on above: Performed By: #### C MP ####[facility] Trkchczkvg3823[address] [place], [place] [address]Dr. Emelina Navarro Chloride [Moles/Vol] 95 mmol/L Critically low 98-107 [facility] Comment on above: Performed By: #### C MP ####[facility] Bgvbwvfarj9378 [place] [address]Dr. Emelina Navarro CO2 [Moles/Vol] 30.4 mmol/L Normal 21.0-32.0 [facility] Comment on above: Performed By: #### C MP ####[facility] Rmsnmnciro4600 [place] [address]Dr. Awildanitza Ramon Creatinine [Mass/Vol] 1.67 mg/dL Critically high 0.70-1.30 [facility] Comment on above: Performed By: #### C MP ####[facility] Thcardwcoh6616 [place] [address]Dr. Emelina Navarro EGFR-AF [place] 50 mL/min/1.73m2 Critically low >=60 [facility] Comment on above: Performed By: #### C MP ####[facility] Szjidbqszl25[address] [place], [place] [address]Dr. Emelina Navarro EGFR-NON AF [place] 41 mL/min/1.73m2 Critically low >=60 [facility] Comment on above: Performed By: #### C MP ####[facility] Bfxysirvqs8168[address] [place], [place] [address]Dr. Emelina Navarro Globulin (S) [Mass/Vol] 3.9 g/dL Normal [facility] Comment on above: Performed By: #### C MP ####[facility] Nenzcftvjy3[address] [place], [place] [address]Dr. Emelina Navarro Glucose [Mass/Vol] 198 mg/dL Critically high 74-106 T [facility] Comment on above: Performed By: #### C MP ####[facility] Ygyrxqvoza8576[address] [place], [place] [address]Dr. Emelina Navarro Potassium [Moles/Vol] 3.5 mmol/L Normal 3.5-5.1 [facility] Comment on above: Performed By: #### C MP ####[facility] Uzntaimovt5[address] [place], [place] [address]Dr. Emelina Navarro Protein [Mass/Vol] 7.2 g/dL Normal 6.4-8.2 [facility] Comment on above: Performed By: #### C MP ####[facility] Hukthgeqfc[address] [place], [place] [address]Dr. Emelina Navarro Sodium [Moles/Vol] 135 mmol/L Critically low 136-145 Th e [facility] Comment on above: Performed By: #### C MP ####[facility] Cdfveocmga4735[address] [place], [place] [address]Dr. Emelina Navarro Urea nitrogen [Mass/Vol] 42.0 mg/dL Critically high 7.0-18.0 [facility] Comment on above: Performed By: #### C MP ####[facility] Bgdwuxvqsb2626[address] [place], [place] [address]Dr. Emelina Navarro Urea nitrogen/Creatinine [Mass ratio] 25.1 mg/mg Normal [facility] Comment on above: Performed By: #### C MP ####[facility] Hglzirtomp[address] [place], [place] [address]Dr. Emelina Navarro PROTIMEon 01-08-2023 INR Coag (PPP) [Relative time] 2.59 {INR} Normal [facility] Comment on above: Performed By: #### P T ####[facility] Cxzbcoywkk9703[address] [place], [place] [address]Dr. Emelina Navarro INR GUIDELINES SEE BELOW Normal [facility] Comment on above: Result Comment: WENDY RED INR: 2.0 - 3.0 CONDITIONS NOT LISTED BELOW 2.5 - 3.5 FOR PROSTHETIC HEART VALVE REPLACEMENT 2.5 - 3.5 RECURRENT THROMBOSIS Performed By: #### P T ####[facility] Sqbptveilp8[address] [place], [place] [address]Dr. Emelina Navarro PT Coag (PPP) [Time] 26.0 s Critically high 9.0-11.6 [facility] Comment on above: Performed By: #### P T ####[facility] Hmylfnzapm7[address] [place], [place] [address]Dr. Emelina Navarro CBC AUTO DIFFon 01-07-2023 BASO # 0.0 103/ul Normal 0.0-0.1 [facility] Comment on above: Performed By: #### C BC ####[facility] Mqnspqives[address] [place], [place] [address]Dr. Emelina Navarro Basophils/100 WBC (Bld) 0.3 % Normal 0.2-2.0 [facility] Comment on above: Performed By: #### C BC ####[facility] Erojeyiqob26[address] [place] [address]Dr. Emelina Navarro EO # 0.3 103/ul Normal 0.0-0.7 [facility] Comment on above: Performed By: #### C BC ####[facility] Ygazcnbnli9658 [place] [address]DrWesley Emelina Navarro Eosinophils/100 WBC (Bld) 2.3 % Normal 0.9-7.0 [facility] Comment on above: Performed By: #### C BC ####[facility] Ewgindmrpe6952 [place] [address]Dr. Emelina Navarro Erythrocyte distribution width (RBC) [Ratio] 17.8 % Critically high 11.0-15.0 [facility] Comment on above: Performed By: #### C BC ####[facility] Wlrqsdezgm5303[address] [place], [place] [address]Dr. Emelina Navarro Hematocrit (Bld) [Volume fraction] 43.3 % Normal 42.0-54.0 [facility] Comment on above: Performed By: #### C BC ####[facility] Ucltvpgyoq7[address] [place], [place] [address]Dr. Emelina Navarro Hemoglobin (Bld) [Mass/Vol] 13.6 g/dL Critically low 14.0-18.0 [facility] Comment on above: Performed By: #### C BC ####[facility] Uwakqjjcyg8[address] [place], [place] [address]Dr. Emelina Navarro IG # 0.05 10e3/ul Critically high 0.00-0.03 [facility] Comment on above: Performed By: #### C BC ####[facility] Uttctpjmya5654[address] [place], [place] [address]Dr. Emelina Navarro IG % 0.4 % Normal 0.0-0.5 [facility] Comment on above: Performed By: #### C BC ####[facility] Ninvwpntwy048[address] [place], [place] [address]DrWesley Navarro LYMPH # 1.8 103/ul Normal 1.2-3.8 [facility] Comment on above: Performed By: #### C BC ####[facility] Bierdzprkn5041 [place] [id number]. Awildanitza Navarro Lymphocytes/100 WBC (Bld) 12.8 % Critically low 20.5-60.0 [facility] Comment on above: Performed By: #### C BC ####[facility] Xunqwwuucf5637 [place] [address]Dr. Emelina Navarro MANUAL DIFF REQ NO Normal [facility] Comment on above: Performed By: #### C BC ####[facility] Skpmdolzdf8039 [place] [phone]. Emelina Navarro MCH (RBC) [Entitic mass] 28.4 pg Normal 25.9-34.0 [facility] Comment on above: Performed By: #### C BC ####[facility] Tfmsusxmeq6[address] [place], [place] [address]Dr. Emelina Navarro MCHC (RBC) [Mass/Vol] 31.4 g/dL Normal 29.9-35.2 [facility] Comment on above: Performed By: #### C BC ####[facility] Hkisibxopv00[address] [place], [place] [address]Dr. Emelina Navarro MCV (RBC) [Entitic vol] 90.4 fL Normal 80.0-94.0 [facility] Comment on above: Performed By: #### C BC ####[facility] Bdprpdruif0831 [place] [address]Dr. Emelina Navarro MONO # 0.9 103/ul Critically high 0.3-0.8 [facility] Comment on above: Performed By: #### C BC ####[facility] Nnqyquqqfk7037 [place] [id number]. Emelina Navarro Monocytes/100 WBC (Bld) 6.8 % Normal 1.7-12.0 [facility] Comment on above: Performed By: #### C BC ####[facility] Qfkixbapws16[address] [place], [place] [address]Dr. Emelnia Navarro NEUT # 10.7 103/ul Critically high 1.4-6.5 [facility] Comment on above: Performed By: #### C BC ####[facility] Tfknxiavhf4385 [place] [address]Dr. Emelina Navarro Neutrophils/100 WBC (Bld) 77.4 % Critically high 43.0-75.0 [facility] Comment on above: Performed By: #### C BC ####[facility] Ysckzueqci5828 [place] [id number]. Emelina Navarro Platelet mean volume (Bld) [Entitic vol] 11.5 fL Normal 9.5-13.5 [facility] Comment on above: Performed By: #### C BC ####[facility] Egmcibfjug0617 [place] [address]Dr. Emelina Navarro PLT 114 103/ul Critically low 150-450 [facility] Comment on above: Performed By: #### C BC ####[facility] Kpykilusuh5703 [place] [address]Dr. Emelina Navarro RBC 4.79 106/ul Normal 4.70-6.10 [facility] Comment on above: Performed By: #### C BC ####[facility] Wpwafizfzr8679 [place] [address]DrWesley Navarro WBC 13.8 103/ul Critically high 4.0-11.0 [facility] Comment on above: Performed By: #### C BC ####[facility] Vquedojhqk7397 [place] [phone] Navarro PROF 14(COMP METB)on 023 Albumin [Mass/Vol] 3.4 g/dL Normal 3.4-5.0 [facility] Comment on above: Performed By: #### C MP ####[facility] Zzdkhtxsdc6011 [place] [address]DrWesley Navarro Albumin/Globulin [Mass ratio] 0.9 {ratio} Normal [facility] Comment on above: Performed By: #### C MP ####[facility] Xfknfjtdzu5549 [place] [id number] Navarro ALP [Catalytic activity/Vol] 130 U/L Critically high 46-116 [facility] Comment on above: Performed By: #### C MP ####[facility] Xvkithvjet1733 [place] [address]Dr. Emelina Navarro ALT [Catalytic activity/Vol] 24 U/L Normal 16-63 [facility] Comment on above: Performed By: #### C MP ####[facility] Urywcnwhmw7714 [place] [id number]. Emelina Navarro Anion gap [Moles/Vol] 12.2 mmol/L Normal Th e [facility] Comment on above: Performed By: #### C MP ####[facility] Hycuihzaij1448 [place] [id number]. Emelina Navarro AST [Catalytic activity/Vol] 22 U/L Normal 15-37 [facility] Comment on above: Performed By: #### C MP ####[facility] Uoppllasch5382 [place] [address]Dr. Emelina Ramon Bilirubin [Mass/Vol] 1.1 mg/dL Critically high 0.2-1.0 [facility] Comment on above: Performed By: #### C MP ####[facility] Kbsetjapbg1972 [place] [id number]. Emelina Ramon Calcium [Mass/Vol] 9.0 mg/dL Normal 8.5-10.1 [facility] Comment on above: Performed By: #### C MP ####[facility] Zxvfovsuig7830 [place] [address]Dr. Emelina Navarro Chloride [Moles/Vol] 99 mmol/L Normal 98-107 [facility] Comment on above: Performed By: #### C MP ####[facility] Btdzfkmzdw6604 [place] [id number]. Emelina Navarro CO2 [Moles/Vol] 30.5 mmol/L Normal 21.0-32.0 [facility] Comment on above: Performed By: #### C MP ####[facility] Pfewmlvzew7602 [place] [id number]. Emelina Ramon Creatinine [Mass/Vol] 1.58 mg/dL Critically high 0.70-1.30 [facility] Comment on above: Performed By: #### C MP ####[facility] Jbwfnujhmo3623 [place] [id number]. Emelina Navarro EGFR-AF [place] 53 mL/min/1.73m2 Critically low >=60 [facility] Comment on above: Performed By: #### C MP ####[facility] Fctbdwylpp4307 [place] [id number]. Emelina Ramon EGFR-NON AF [place] 44 mL/min/1.73m2 Critically low >=60 [facility] Comment on above: Performed By: #### C MP ####[facility] Ykuuvauujf4382 [place] [address]Dr. Emelina Ramon Globulin (S) [Mass/Vol] 3.9 g/dL Normal [facility] Comment on above: Performed By: #### C MP ####[facility] Kkbcmrppro1772 [place] [address]Dr. Emelina Ramon Glucose [Mass/Vol] 195 mg/dL Critically high 74-106 [facility] Comment on above: Performed By: #### C MP ####[facility] Qoiipkwdlg9773 [place] [address]Dr. Emelina Ramon Potassium [Moles/Vol] 3.7 mmol/L Normal 3.5-5.1 [facility] Comment on above: Performed By: #### C MP ####[facility] Wuavvseool0572 [place] [address]Dr. Emelina Ramon Protein [Mass/Vol] 7.3 g/dL Normal 6.4-8.2 [facility] Comment on above: Performed By: #### C MP ####[facility] Apewypdtfx8585 [place] [address]Dr. Emelina Navarro Sodium [Moles/Vol] 138 mmol/L Normal 136-145 [facility] Comment on above: Performed By: #### C MP ####[facility] Zammzxhcxi1577 [place] [phone]. Emelina Ramon Urea nitrogen [Mass/Vol] 36.0 mg/dL Critically high 7.0-18.0 [facility] Comment on above: Performed By: #### C MP ####[facility] Leteddiabs18[address] [place], [place] [address]Dr. Emelina Navarro Urea nitrogen/Creatinine [Mass ratio] 22.8 mg/mg Normal [facility] Comment on above: Performed By: #### C MP ####[facility] Ycdhoojsxx5[address] [place], [place] [address]Dr. Emelina Navarro CBC AUTO DIFFon 01-06-2023 BASO # 0.0 103/ul Normal 0.0-0.1 [facility] Comment on above: Performed By: #### C BC ####[facility] Imcprqvprc86[address] [place], [place] [address]Dr. Emelina Navarro Basophils/100 WBC (Bld) 0.3 % Normal 0.2-2.0 [facility] Comment on above: Performed By: #### C BC ####[facility] Vsoivqfsyf6098[address] [place], [place] [address]DrWesley Navarro EO # 0.3 103/ul Normal 0.0-0.7 [facility] Comment on above: Performed By: #### C BC ####[facility] Igoqnxystw253[address] [place], [place] [address]DrWesley Navarro Eosinophils/100 WBC (Bld) 2.2 % Normal 0.9-7.0 [facility] Comment on above: Performed By: #### C BC ####[facility] Sqmonjmtfz2128[address] [place], [place] [address]Dr. Emelina Navarro Erythrocyte distribution width (RBC) [Ratio] 17.9 % Critically high 11.0-15.0 [facility] Comment on above: Performed By: #### C BC ####[facility] Fomdndqtpx1780[address] [place], [place] [address]DrWesley Navarro Hematocrit (Bld) [Volume fraction] 40.9 % Critically low 42.0-54.0 [facility] Comment on above: Performed By: #### C BC ####[facility] Wwzhoofmds8586[address] [place], [place] [address]Dr. Emelina Navarro Hemoglobin (Bld) [Mass/Vol] 12.9 g/dL Critically low 14.0-18.0 [facility] Comment on above: Performed By: #### C BC ####[facility] Ibzpduuskg1065 [place] [phone] Navarro IG # 0.04 10e3/ul Critically high 0.00-0.03 [facility] Comment on above: Performed By: #### C BC ####[facility] Zoqjwgpfvb3293 [place] [address]DrWesley Navarro IG % 0.3 % Normal 0.0-0.5 [facility] Comment on above: Performed By: #### C BC ####[facility] Pnqiniykdu8254[address] [place], [place] [address]DrWesley Navarro LYMPH # 2.2 103/ul Normal 1.2-3.8 [facility] Comment on above: Performed By: #### C BC ####[facility] Ouybdddxni1593[address] [place], [place] [address]DrWesley Navarro Lymphocytes/100 WBC (Bld) 17.3 % Critically low 20.5-60.0 [facility] Comment on above: Performed By: #### C BC ####[facility] Iavqfqvjlg15[address] [place], [place] [address]DrWesley Navarro MANUAL DIFF REQ NO Normal [facility] Comment on above: Performed By: #### C BC ####[facility] Fqcniizwcj4009 [place] [address]DrWesley Navarro MCH (RBC) [Entitic mass] 28.5 pg Normal 25.9-34.0 [facility] Comment on above: Performed By: #### C BC ####[facility] Bmnihxozar0010[address] [place], [place] [address]DrWesley Navarro MCHC (RBC) [Mass/Vol] 31.5 g/dL Normal 29.9-35.2 [facility] Comment on above: Performed By: #### C BC ####[facility] Xishfnpqbz8057[address] [place], [place] [address]DrWesley Navarro MCV (RBC) [Entitic vol] 90.3 fL Normal 80.0-94.0 [facility] Comment on above: Performed By: #### C BC ####[facility] Uxbmxtmvsy1918[address] [place], [place] [address]DrWesley Emelina Navarro MONO # 0.9 103/ul Critically high 0.3-0.8 [facility] Comment on above: Performed By: #### C BC ####[facility] Alqeqgkhjj5933[address] [place], [place] [address]DrWesley Emelina Ramon Monocytes/100 WBC (Bld) 7.5 % Normal 1.7-12.0 [facility] Comment on above: Performed By: #### C BC ####[facility] Bwvtrhrkzc6446[address] [place], [place] [address]DrWesley Emelina Navarro NEUT # 9.1 103/ul Critically high 1.4-6.5 [facility] Comment on above: Performed By: #### C BC ####[facility] Qtaushsicd8573[address] [place], [place] [address]Dr. Emelina Ramon Neutrophils/100 WBC (Bld) 72.4 % Normal 43.0-75.0 [facility] Comment on above: Performed By: #### C BC ####[facility] Huguqjwfdn9273[address] [place], [place] [address]Dr. Emelina Ramon Platelet mean volume (Bld) [Entitic vol] 11.3 fL Normal 9.5-13.5 [facility] Comment on above: Performed By: #### C BC ####[facility] Bjecvourwq3214[address] [place], [place] [address]Dr. Emelina Ramon PLT 119 103/ul Critically low 150-450 [facility] Comment on above: Performed By: #### C BC ####[facility] Vsgimjqnmt66[address] [place], [place] [address]DrWesley Navarro RBC 4.53 106/ul Critically low 4.70-6.10 [facility] Comment on above: Performed By: #### C BC ####[facility] Rsgsngjyas2201[address] [place], [place] [address]Dr. Emelina Navarro WBC 12.6 103/ul Critically high 4.0-11.0 [facility] Comment on above: Performed By: #### C BC ####[facility] Ngszyybugx[address] [place], [place] [address]DrWesley Navarro PROF 14(COMP METB)on 023 Albumin [Mass/Vol] 3.1 g/dL Critically low 3.4-5.0 [facility] Comment on above: Performed By: #### C MP ####[facility] Apjkmudqaf99[address] [place], [place] [address]DrWesley Navarro Albumin/Globulin [Mass ratio] 1.0 {ratio} Normal [facility] Comment on above: Performed By: #### C MP ####[facility] Dumklsgmyq92[address] [place], [place] [address]Dr. Emelina Navarro ALP [Catalytic activity/Vol] 114 U/L Normal 46-116 [facility] Comment on above: Performed By: #### C MP ####[facility] Corloijjmq6101[address] [place], [place] [address]Dr. Emelina Navarro ALT [Catalytic activity/Vol] 23 U/L Normal 16-63 [facility] Comment on above: Performed By: #### C MP ####[facility] Trguairepj0723[address] [place], [place] [address]DrWesley Navarro Anion gap [Moles/Vol] 13.5 mmol/L Normal [facility] Comment on above: Performed By: #### C MP ####[facility] Kufydyuggp6905[address] [place], [place] [address]Dr. Emelina Navarro AST [Catalytic activity/Vol] 24 U/L Normal 15-37 [facility] Comment on above: Performed By: #### C MP ####[facility] Qxdnxwkyzr6254[address] [place], [place] [address]DrWesley Navarro Bilirubin [Mass/Vol] 1.0 mg/dL Normal 0.2-1.0 [facility] Comment on above: Performed By: #### C MP ####[facility] Bnnhchttbf1130[address] [place], [place] [address]DrWesley Navarro Calcium [Mass/Vol] 8.5 mg/dL Normal 8.5-10.1 [facility] Comment on above: Performed By: #### C MP ####[facility] Cqygckiaxa133[address] [place], [place] [address]Dr. Emelina Navarro Chloride [Moles/Vol] 102 mmol/L Normal 98-107 [facility] Comment on above: Performed By: #### C MP ####[facility] Fojtkpsokk2453[address] [place], [place] [address]Dr. Awildanitza Ramon CO2 [Moles/Vol] 28.2 mmol/L Normal 21.0-32.0 [facility] Comment on above: Performed By: #### C MP ####[facility] Zdejqhywno0192[address] [place], [place] [address]Dr. Emelina Navarro Creatinine [Mass/Vol] 1.42 mg/dL Critically high 0.70-1.30 [facility] Comment on above: Performed By: #### C MP ####[facility] Awjorwkkwr5758[address] [place], [place] [address]Dr. Emelina Navarro EGFR-AF [place] 60 mL/min/1.73m2 Normal >=60 [facility] Comment on above: Performed By: #### C MP ####[facility] Nlhokmxwcl7[address] [place], [place] [address]Dr. Emelina Navarro EGFR-NON AF [place] 50 mL/min/1.73m2 Critically low >=60 [facility] Comment on above: Performed By: #### C MP ####[facility] Shkpdzxgdx8486[address] [place], [place] [address]Dr. Emelina Navarro Globulin (S) [Mass/Vol] 3.1 g/dL Normal [facility] Comment on above: Performed By: #### C MP ####[facility] Kaklsfmrij3337[address] [place], [place] [address]Dr. Emelina Navarro Glucose [Mass/Vol] 121 mg/dL Critically high 74-106 [facility] Comment on above: Performed By: #### C MP ####[facility] Sautlwhcdl4397[address] [place], [place] [address]Dr. Emelina Navarro Potassium [Moles/Vol] 3.7 mmol/L Normal 3.5-5.1 [facility] Comment on above: Performed By: #### C MP ####[facility] Vgrmbfnrfw2146[address] [place], [place] [address]Dr. Emelina Navarro Protein [Mass/Vol] 6.2 g/dL Critically low 6.4-8.2 [facility] Comment on above: Performed By: #### C MP ####[facility] Rjqbmhgpid5245[address] [place], [place] [address]Dr. Emelina Navarro Sodium [Moles/Vol] 140 mmol/L Normal 136-145 [facility] Comment on above: Performed By: #### C MP ####[facility] Hhozcxtqms9554[address] [place], [place] [address]Dr. Eemlina Navarro Urea nitrogen [Mass/Vol] 33.0 mg/dL Critically high 7.0-18.0 [facility] Comment on above: Performed By: #### C MP ####[facility] Vxccqcnynu[address] [place], [place] [address]Dr. Emelina Navarro Urea nitrogen/Creatinine [Mass ratio] 23.2 mg/mg Normal [facility] Comment on above: Performed By: #### C MP ####[facility] Iarixwwdoo0430[address] [place], [place] [address]Dr. Emelina Navarro BNPon 01-05-2023 Natriuretic peptide B (Bld) [Mass/Vol] 7350.0 pg/mL Critically high <=900.0 [facility] Comment on above: Performed By: #### B [employer] EXECUTIVE DIRECTOR, BMP, HSTROPN ####[facility] Lftimgysjg1533[address] [place], [place] [address]Dr. Emelina Navarro CBC AUTO DIFFon 01-05-2023 BASO # 0.0 103/ul Normal 0.0-0.1 [facility] Comment on above: Performed By: #### C BC ####[facility] Apxwwxuntm5013[address] [place], [place] [address]Dr. Emelina Navarro Basophils/100 WBC (Bld) 0.3 % Normal 0.2-2.0 [facility] Comment on above: Performed By: #### C BC ####[facility] [address] [place] [id number]. Emelina Navarro EO # 0.3 103/ul Normal 0.0-0.7 [facility] Comment on above: Performed By: #### C BC ####[facility] Zjgzlohsds5188 [place] [id number]. Emelina Navarro Eosinophils/100 WBC (Bld) 1.9 % Normal 0.9-7.0 [facility] Comment on above: Performed By: #### C BC ####[facility] Tlgbyjuyen802[address] [place], [place] [address]Dr. Emelina Navarro Erythrocyte distribution width (RBC) [Ratio] 17.7 % Critically high 11.0-15.0 [facility] Comment on above: Performed By: #### C BC ####[facility] Bqgoccmceq407[address] [place], [place] [address]Dr. Emelina Navarro Hematocrit (Bld) [Volume fraction] 42.9 % Normal 42.0-54.0 [facility] Comment on above: Performed By: #### C BC ####[facility] Tdfhifduqa8097[address] [place], [place] [address]Dr. Emelina Navarro Hemoglobin (Bld) [Mass/Vol] 13.8 g/dL Critically low 14.0-18.0 [facility] Comment on above: Performed By: #### C BC ####[facility] Zbtikxkqem348[address] [place], [place] [address]Dr. Emelina Navarro IG # 0.07 10e3/ul Critically high 0.00-0.03 [facility] Comment on above: Performed By: #### C BC ####[facility] Eqtgaznlwd9177[address] [place], [place] [address]Dr. Emelina Navarro IG % 0.4 % Normal 0.0-0.5 [facility] Comment on above: Performed By: #### C BC ####[facility] Ntguvprvwi1918[address] [place], [place] [address]Dr. Emelina Navarro LYMPH # 1.8 103/ul Normal 1.2-3.8 [facility] Comment on above: Performed By: #### C BC ####[facility] Yojzcyeyhk38[address] [place] [id number]. Emelina Ramon Lymphocytes/100 WBC (Bld) 11.6 % Critically low 20.5-60.0 [facility] Comment on above: Performed By: #### C BC ####[facility] Scgjusgqno978[address] [place] [id number]. Emelina Navarro MANUAL DIFF REQ NO Normal [facility] Comment on above: Performed By: #### C BC ####[facility] Saswahwrdb5587 [place] [id number]. Emelina Navarro MCH (RBC) [Entitic mass] 28.5 pg Normal 25.9-34.0 [facility] Comment on above: Performed By: #### C BC ####[facility] Edgvpwwcrp6600[address] [place], [place] [address]Dr. Emelina Navarro MCHC (RBC) [Mass/Vol] 32.2 g/dL Normal 29.9-35.2 [facility] Comment on above: Performed By: #### C BC ####[facility] Telwgvyhqj7[address] [place], [place] [address]Dr. Emelina Navarro MCV (RBC) [Entitic vol] 88.5 fL Normal 80.0-94.0 [facility] Comment on above: Performed By: #### C BC ####[facility] Vgsjftihag[address] [place], [place] [address]Dr. Emelina Navarro MONO # 1.1 103/ul Critically high 0.3-0.8 [facility] Comment on above: Performed By: #### C BC ####[facility] Faqtkwxysy2740[address] [place], [place] [address]Dr. Emelina Navarro Monocytes/100 WBC (Bld) 6.9 % Normal 1.7-12.0 [facility] Comment on above: Performed By: #### C BC ####[facility] Oyulaxzphi[address] [place], [place] [address]Dr. Emelina Navarro NEUT # 12.4 103/ul Critically high 1.4-6.5 [facility] Comment on above: Performed By: #### C BC ####[facility] Srkryseadd60[address] [place] [id number]. Emelina Navarro Neutrophils/100 WBC (Bld) 78.9 % Critically high 43.0-75.0 [facility] Comment on above: Performed By: #### C BC ####[facility] K[address]skwiefi53[address] [place] [id number]. Emelina Navarro Platelet mean volume (Bld) [Entitic vol] 11.5 fL Normal 9.5-13.5 [facility] Comment on above: Performed By: #### C BC ####[facility] Qkujgnrtvr1040 [place] [id number]. Emelina Navarro PLT 142 103/ul Critically low 150-450 [facility] Comment on above: Performed By: #### C BC ####[facility] Gksnoqkiuh22[address] [place] [id number]. Emelina Navarro RBC 4.85 106/ul Normal 4.70-6.10 [facility] Comment on above: Performed By: #### C BC ####[facility] Aryqktxaor71[address] [place] [address]Dr. Emelina Navarro WBC 15.8 103/ul Critically high 4.0-11.0 [facility] Comment on above: Performed By: #### C BC ####[facility] Wkgcpidmij24[address] [place] [id number]. Emelina Navarro CULTURE BLOODon 01-05-2023 Microscopic examination of blood, culture Culture Observations: NO GROWTH AT 5 DAYS. Normal [facility] Comment on above: Performed By: #### B LDCX2 ####[facility] N[address]jqfbosd4165 [place] [id number]. Emelina Navarro Microscopic examination of blood, culture Culture Observations: NO GROWTH AT 5 DAYS. Normal [facility] Comment on above: Performed By: #### B LDCX1 ####[facility] Wttnlfzvsy85[address] [place] [id number]. Emelina Ramon [facility]20 SARS-CoV-2 (COVID-19) RNA RADHA+probe Ql (Unsp spec) Not detected Normal NOT DETECTED [facility] Comment on above: Result Comment: When [...] for this test is supported by the [place] of Health and Human Service's declaration that [...] be used). Performed By: #### C VDTBH ####[facility] [address] [place] [address]Dr. Emelina Navarro DIGOXINon 01-05-2023 DIG 0.8 ng/mL Critically low 0.9-2.0 [facility] Comment on above: Performed By: #### D IG ####[facility] Mjgbumamhf133[address] [place], [place] [address]Dr. Emelina Navarro PROF CHEM 8 (BAS METB)on Anion gap [Moles/Vol] 12.7 mmol/L Normal [facility] Comment on above: Performed By: #### B [employer] EXECUTIVE DIRECTOR, BMP, HSTROPN ####[facility] [address]ht[address] [place] [address]DrWesley Navarro Calcium [Mass/Vol] 8.8 mg/dL Normal 8.5-10.1 [facility] Comment on above: Performed By: #### B [employer]OC[employer] EXECUTIVE DIRECTOR, BMP, HSTROPN ####[facility] Icvjuspvej42[address] [place] [address]DrWesley Navarro Chloride [Moles/Vol] 99 mmol/L Normal 98-107 [facility] Comment on above: Performed By: #### B [employer]OC[employer]ATION EXECUTIVE DIRECTOR, BMP, HSTROPN ####[facility] Jpvdskrmiv53[address] [place] [address]Dr. Emelina Navarro CO2 [Moles/Vol] 28.2 mmol/L Normal 21.0-32.0 [facility] Comment on above: Performed By: #### B [employer]OC[employer] EXECUTIVE DIRECTOR, BMP, HSTROPN ####[facility] Nfspfdzxzq3430[address] [place], [place] [address]Dr. Emelina Navarro Creatinine [Mass/Vol] 1.64 mg/dL Critically high 0.70-1.30 [facility] Comment on above: Performed By: #### B [employer]OCIATION EXECUTIVE DIRECTOR, BMP, HSTROPN ####[facility] Txsdsshxqa942[address] [place], [place] [address]Dr. Emelina Navarro EGFR-AF [place] 51 mL/min/1.73m2 Critically low >=60 [facility] Comment on above: Performed By: #### B [employer] ASSOCIATION EXECUTIVE DIRECTOR, BMP, HSTROPN ####[facility] Mjgbowckvq6520[address] [place], [place] [address]Dr. Emelina Navarro EGFR-NON AF [place] 42 mL/min/1.73m2 Critically low >=60 [facility] Comment on above: Performed By: #### B [employer] ASSOCIATION EXECUTIVE DIRECTOR, BMP, HSTROPN ####[facility] Pcqplpggpp378[address] [place], [place] [address]Dr. Emelina Navarro Glucose [Mass/Vol] 203 mg/dL Critically high 74-106 [facility] Comment on above: Performed By: #### B [employer] ASSOCIATION EXECUTIVE DIRECTOR, BMP, HSTROPN ####[facility] Mtnodeiauy5576[address] [place], [place] [address]Dr. Emelina Navarro Potassium [Moles/Vol] 3.9 mmol/L Normal 3.5-5.1 [facility] Comment on above: Performed By: #### B [employer] ASSOCIATION EXECUTIVE DIRECTOR, BMP, HSTROPN ####[facility] Mp[address]nixdqk9[address] [place] [address]Dr. Emelina Navarro Sodium [Moles/Vol] 136 mmol/L Normal 136-145 [facility] Comment on above: Performed By: #### B [employer] ASSOC[employer]ATION EXECUTIVE DIRECTOR, BMP, HSTROPN ####[facility] Rvsksgdtjo6[address] [place] [address]Dr. Emelina Navarro Urea nitrogen [Mass/Vol] 32.0 mg/dL Critically high 7.0-18.0 [facility] Comment on above: Performed By: #### B NUR[employer] ASSOCIATION EXECUTIVE DIRECTOR, BMP, HSTROPN ####[facility] Uigekjmzai2977[address] [place], [place] [address]Dr. Emelina Navarro Urea nitrogen/Creatinine [Mass ratio] 19.5 mg/mg Normal [facility] Comment on above: Performed By: #### B [employer] ASSOCIATION EXECUTIVE DIRECTOR, BMP, HSTROPN ####[facility] Oahomhjbss034[address] [place], [place] [address]Dr. Emelina Navarro PROTIMEon 01-05-2023 INR Coag (PPP) [Relative time] 2.53 {INR} Normal [facility] Comment on above: Performed By: #### P T, PTT ####[facility] Qrzdrgvbgm6584[address] [place], [place] [address]Dr. Emelina Navarro INR GUIDELINES SEE BELOW Normal [facility] Comment on above: Result Comment: WENDY RED INR: 2.0 - 3.0 CONDITIONS NOT LISTED BELOW 2.5 - 3.5 FOR PROSTHETIC HEART VALVE REPLACEMENT 2.5 - 3.5 RECURRENT THROMBOSIS Performed By: #### P T, PTT ####[facility] Wakbsnvraz3800[address] [place], [place] [address]Dr. Emelina Navarro PT Coag (PPP) [Time] 25.4 s Critically high 9.0-11.6 [facility] Comment on above: Performed By: #### P T, PTT ####[facility] Lqgjcxxfmi6346[address] [place], [place] [address]Dr. Emelina Navarro PTTon 01-05-2023 aPTT Coag (Bld) [Time] 37.7 s Critically high 22.3-36.2 [facility] Comment on above: Performed By: #### P T, PTT ####[facility] Nhrlgrqyyl2198[address] [place], [place] [address]Dr. Emelina Navarro TROPONIN, HIGH SENSITIVITYon 01-05-2023 HSTROP 52.4 pg/mL Normal 4.0-76.1 [facility] Comment on above: Result Comment: CUT- OFF POINTS HAVE BEEN ESTABLISHED BASED ON THE FOURTH UNIVERSAL DEFINITIONS OF MYOCARDIALINFARCTION. THE UPPER REFERENCE LIMIT (URL) OF TROPONIN, DEFINED THE 99TH PERCENTILE OFcTnI DISTRIBUTION IN A REFERENCE POPULATION, HAS BEEN CONFIRMED THE DECISION THRESHOLDFOR VT DIAGNOSIS. Performed By: #### B NUR[employer]ES[employer] ASSOCIATION EXECUTIVE DIRECTOR, BMP, HSTROPN ####[facility] Tbxozfdwis770[address] [place], [place] [address]Dr. Emelina Navarro XR CHEST 1 Von 01-05-2023 XR CHEST 1 V Normal [facility] BNPon 01-02-2023 Natriuretic peptide B (Bld) [Mass/Vol] 5653.0 pg/mL Critically high <=900.0 [facility] Comment on above: Performed By: #### B NURSES[employer] ASSOCIATION EXECUTIVE DIRECTOR, BMP ####[facility] Rghphizfbd6204[address] [place], [place] [address]Dr. Emelina Ramon CBC AUTO DIFFon 01-02-2023 BASO # 0.0 103/ul Normal 0.0-0.1 [facility] Comment on above: Performed By: #### C BC ####[facility] Jkbuqxygfj2423[address] [place], [place] [address]Dr. Awildanitza Navarro Basophils/100 WBC (Bld) 0.2 % Normal 0.2-2.0 [facility] Comment on above: Performed By: #### C BC ####[facility] Fkxjkxhbsp8495[address] [place], [place] [address]Dr. Emelina Ramon EO # 0.3 103/ul Normal 0.0-0.7 [facility] Comment on above: Performed By: #### C BC ####[facility] Rducpgiwcz3718[address] [place], [place] [address]Dr. Awildanitza Navarro Eosinophils/100 WBC (Bld) 2.1 % Normal 0.9-7.0 [facility] Comment on above: Performed By: #### C BC ####[facility] Lnudkakzic5627[address] [place], [place] [address]Dr. Emelina Navarro Erythrocyte distribution width (RBC) [Ratio] 17.9 % Critically high 11.0-15.0 [facility] Comment on above: Performed By: #### C BC ####[facility] N[address]vnadwgu70[address] [place] [address]DrWesley Navarro Hematocrit (Bld) [Volume fraction] 42.1 % Normal 42.0-54.0 [facility] Comment on above: Performed By: #### C BC ####[facility] Qziunydagy4048 [place] [address]DrWesley Navarro Hemoglobin (Bld) [Mass/Vol] 13.8 g/dL Critically low 14.0-18.0 [facility] Comment on above: Performed By: #### C BC ####[facility] Qtabtlomlg272[address] [place], [place] [address]DrWesley Navarro IG # 0.06 10e3/ul Critically high 0.00-0.03 [facility] Comment on above: Performed By: #### C BC ####[facility] Jjmfmgtbcr9295[address] [place], [place] [address]DrWesley Navarro IG % 0.5 % Normal 0.0-0.5 [facility] Comment on above: Performed By: #### C BC ####[facility] Drsmauyfwq4122[address] [place], [place] [address]DrWesley Navarro LYMPH # 1.7 103/ul Normal 1.2-3.8 [facility] Comment on above: Performed By: #### C BC ####[facility] Lswzxzwxgy498[address] [place], [place] [address]DrWesley Navarro Lymphocytes/100 WBC (Bld) 13.1 % Critically low 20.5-60.0 [facility] Comment on above: Performed By: #### C BC ####[facility] Owglpibgap052[address] [place], [place] [address]DrWesley Navarro MANUAL DIFF REQ NO Normal [facility] Comment on above: Performed By: #### C BC ####[facility] N[address]opziwjfy9961 [place] [address]DrWesley Navarro MCH (RBC) [Entitic mass] 28.9 pg Normal 25.9-34.0 [facility] Comment on above: Performed By: #### C BC ####[facility] Nsldwclfqz4147 [place] [address]DrWesley Navarro MCHC (RBC) [Mass/Vol] 32.8 g/dL Normal 29.9-35.2 [facility] Comment on above: Performed By: #### C BC ####[facility] Qbsbelozem5175 [place] [address]DrWesley Navarro MCV (RBC) [Entitic vol] 88.3 fL Normal 80.0-94.0 [facility] Comment on above: Performed By: #### C BC ####[facility] Xyvsveaivv3437[address] [place], [place] [address]DrWesley Navarro MONO # 0.7 103/ul Normal 0.3-0.8 [facility] Comment on above: Performed By: #### C BC ####[facility] Wlyavdoyjc017[address] [place], [place] [address]DrWesley Navarro Monocytes/100 WBC (Bld) 5.3 % Normal 1.7-12.0 [facility] Comment on above: Performed By: #### C BC ####[facility] Vlnyuvcuxx8168[address] [place], [place] [address]DrWesley Navarro NEUT # 10.1 103/ul Critically high 1.4-6.5 [facility] Comment on above: Performed By: #### C BC ####[facility] Emvlgoybev176[address] [place], [place] [address]DrWesley Navarro Neutrophils/100 WBC (Bld) 78.8 % Critically high 43.0-75.0 [facility] Comment on above: Performed By: #### C BC ####[facility] Cfhtzrdhwt4928[address] [place], [place] [address]DrWesley Navarro Platelet mean volume (Bld) [Entitic vol] 10.8 fL Normal 9.5-13.5 [facility] Comment on above: Performed By: #### C BC ####[facility] Oelihffmxs1863[address] [place], [place] [address]Dr. Emelina Navarro PLT 143 103/ul Critically low 150-450 [facility] Comment on above: Performed By: #### C BC ####[facility] Xkylqaaoia7354 [place] [address]Dr. Emelina Navarro RBC 4.77 106/ul Normal 4.70-6.10 [facility] Comment on above: Performed By: #### C BC ####[facility] Tngfvejokc38[address] [place] [address]Dr. Emelina Ramon WBC 12.8 103/ul Critically high 4.0-11.0 [facility] Comment on above: Performed By: #### C BC ####[facility] Nsnmmbfxnl1766[address] [place], [place] [address]Dr. Awildanitza Navarro PROF CHEM 8 (BAS METB)on Anion gap [Moles/Vol] 12.2 mmol/L Normal [facility] Comment on above: Performed By: #### B NURSES' ASSOCIATION EXECUTIVE DIRECTOR, BMP ####[facility] Ucupaqmzmc4095[address] [place], [place] [address]Dr. Emelina Navarro Calcium [Mass/Vol] 8.6 mg/dL Normal 8.5-10.1 [facility] Comment on above: Performed By: #### B NURSES' ASSOCIATION EXECUTIVE DIRECTOR, BMP ####[facility] Tqhjoryvin3652[address] [place], [place] [address]Dr. Emelina Navarro Chloride [Moles/Vol] 102 mmol/L Normal 98-107 [facility] Comment on above: Performed By: #### B NURSES' ASSOCIATION EXECUTIVE DIRECTOR, BMP ####[facility] Rvlsjustzq125[address] [place], [place] [address]Dr. Emelina Navarro CO2 [Moles/Vol] 26.4 mmol/L Normal 21.0-32.0 [facility] Comment on above: Performed By: #### B NURSES' ASSOCIATION EXECUTIVE DIRECTOR, BMP ####[facility] Uqvqrdtsdg7634[address] [place], [place] [address]Dr. Emelina Navarro Creatinine [Mass/Vol] 1.56 mg/dL Critically high 0.70-1.30 [facility] Comment on above: Performed By: #### B NURSES' ASSOCIATION EXECUTIVE DIRECTOR, BMP ####[facility] [address]ayxzdey79[address] [place] [id number]. Emelina Navarro EGFR-AF [place] 54 mL/min/1.73m2 Critically low >=60 [facility] Comment on above: Performed By: #### B NURSES' ASSOCIATION EXECUTIVE DIRECTOR, BMP ####[facility] Enkxflvdlk[address] [place], [place] [address]Dr. Emelina Navarro EGFR-NON AF [place] 44 mL/min/1.73m2 Critically low >=60 [facility] Comment on above: Performed By: #### B NURSES' ASSOCIATION EXECUTIVE DIRECTOR, BMP ####[facility] Snhmnquoil008[address] [place], [place] [address]Dr. Emelina Navarro Glucose [Mass/Vol] 211 mg/dL Critically high 74-106 [facility] Comment on above: Performed By: #### B NURSES' ASSOCIATION EXECUTIVE DIRECTOR, BMP ####[facility] Ffycgbhsbo95[address] [place], [place] [address]Dr. Emelina Navarro Potassium [Moles/Vol] 3.6 mmol/L Normal 3.5-5.1 [facility] Comment on above: Performed By: #### B NURSES' ASSOCIATION EXECUTIVE DIRECTOR, BMP ####[facility] Bzdsxugncn043[address] [place], [place] [address]Dr. Emelina Navarro Sodium [Moles/Vol] 137 mmol/L Normal 136-145 [facility] Comment on above: Performed By: #### B NURSES' ASSOCIATION EXECUTIVE DIRECTOR, BMP ####[facility] Zaxyolwsnk[address] [place], [place] [address]Dr. Emelina Navarro Urea nitrogen [Mass/Vol] 42.0 mg/dL Critically high 7.0-18.0 [facility] Comment on above: Performed By: #### B NUR[employer]ES' ASSOCIATION EXECUTIVE DIRECTOR, BMP ####[facility] Venibsrxdg036[address] [place] [id number]. Emelina Navarro Urea nitrogen/Creatinine [Mass ratio] 26.9 mg/mg Normal [facility] Comment on above: Performed By: #### B NURSES' ASSOCIATION EXECUTIVE DIRECTOR, BMP ####[facility] Jeibaeihdt14[address] [place], [place] [address]Dr. Emelina Navarro Anion gap [Moles/Vol] 12.3 mmol/L Normal [facility] Comment on above: Performed By: #### B MP ####[facility] [address]rybu[address] [place] [id number]. Emelina Navarro Calcium [Mass/Vol] 8.4 mg/dL Critically low 8.5-10.1 Th e [facility] Comment on above: Performed By: #### B MP ####[facility] Ppodhootyp[address] [place] [id number]. Emelina Navarro Chloride [Moles/Vol] 101 mmol/L Normal 98-107 [facility] Comment on above: Performed By: #### B MP ####[facility] Ahjecrksdv86[address] [place] [id number]. Emelina Navarro CO2 [Moles/Vol] 27.4 mmol/L Normal 21.0-32.0 [facility] Comment on above: Performed By: #### B MP ####[facility] Htxdmbbqfr[address] [place], [place] [address]Dr. Emelina Navarro Creatinine [Mass/Vol] 1.54 mg/dL Critically high 0.70-1.30 [facility] Comment on above: Performed By: #### B MP ####[facility] Gzotatglfk[address] [place] [id number]. Emelina Navarro EGFR-AF [place]ER 55 mL/min/1.73m2 Critically low >=60 [facility] Comment on above: Performed By: #### B MP ####[facility] Wsipesldcb[address] [place] [id number]. Emelina Navarro EGFR-NON AF [place] 45 mL/min/1.73m2 Critically low >=60 [facility] Comment on above: Performed By: #### B MP ####[facility] Mjkxntkexm48[address] [place] [id number]. Emelina Navarro Glucose [Mass/Vol] 115 mg/dL Critically high 74-106 [facility] Comment on above: Performed By: #### B MP ####[facility] Sgsnrartkr[address] [place] [address]Dr. Emelina Navarro Potassium [Moles/Vol] 3.7 mmol/L Normal 3.5-5.1 [facility] Comment on above: Performed By: #### B MP ####[facility] Xmxfqvtkso[address] [place] [address]Dr. Emelina Navarro Sodium [Moles/Vol] 137 mmol/L Normal 136-145 [facility] Comment on above: Performed By: #### B MP ####[facility] Dedwoegcjl[address] [place] [address]Dr. Emelina Navarro Urea nitrogen [Mass/Vol] 40.0 mg/dL Critically high 7.0-18.0 [facility] Comment on above: Performed By: #### B MP ####[facility] Lkpujxlhsz8[address] [place], [place] [address]Dr. Emelina Navarro Urea nitrogen/Creatinine [Mass ratio] 26.0 mg/mg Normal [facility] Comment on above: Performed By: #### B MP ####[facility] Yosjkmqrox[address] [place], [place] [address]Dr. Emelina Navarro XR CHEST 1 Von 01-02-2023 XR CHEST 1 V Normal [facility] BNPon 12-26-2022 Natriuretic peptide B (Bld) [Mass/Vol] 9102.0 pg/mL Critically high <=900.0 [facility] Comment on above: Performed By: #### B [employer] EXECUTIVE DIRECTOR ####[facility] Sexvwqnmja17[address] [place], [place] [address]Dr. Emelina Navarro PROF CHEM 8 (BAS METB)on Anion gap [Moles/Vol] 14.4 mmol/L Normal [facility] Comment on above: Performed By: #### B MP ####[facility] Sqqtylhssu[address] [place], [place] [address]Dr. Emelina Navarro Calcium [Mass/Vol] 8.6 mg/dL Normal 8.5-10.1 [facility] Comment on above: Performed By: #### B MP ####[facility] Njvsnsqmws[address] [place], [place] [address]Dr. Emelina Navarro Chloride [Moles/Vol] 101 mmol/L Normal 98-107 [facility] Comment on above: Performed By: #### B MP ####[facility] Wjuorlesdd18[address] [place], [place] [address]Dr. Emelina Navarro CO2 [Moles/Vol] 27.2 mmol/L Normal 21.0-32.0 [facility] Comment on above: Performed By: #### B MP ####[facility] Soyohevstg[address] [place] [address]Dr. Emelina Navarro Creatinine [Mass/Vol] 1.69 mg/dL Critically high 0.70-1.30 [facility] Comment on above: Performed By: #### B MP ####[facility] Nuplktovtt[address] [place] [address]Dr. Emelina Navarro EGFR-AF [place] 49 mL/min/1.73m2 Critically low >=60 [facility] Comment on above: Performed By: #### B MP ####[facility] Cpgljtcmid77[address] [place] [address]Dr. Emelina Navarro EGFR-NON AF [place] 41 mL/min/1.73m2 Critically low >=60 [facility] Comment on above: Performed By: #### B MP ####[facility] Aaiifhrycv4[address] [place], [place] [address]Dr. Emelina Navarro Glucose [Mass/Vol] 163 mg/dL Critically high 74-106 [facility] Comment on above: Performed By: #### B MP ####[facility] Jwtkhjsekx[address] [place] [address]Dr. Emelina Navarro Potassium [Moles/Vol] 3.6 mmol/L Normal 3.5-5.1 [facility] Comment on above: Performed By: #### B MP ####[facility] Mimrlbacmf[address] [place] [address]Dr. Emelina Navarro Sodium [Moles/Vol] 139 mmol/L Normal 136-145 [facility] Comment on above: Performed By: #### B MP ####[facility] Yjkirgopgn[address] [place], [place] [address]Dr. Emelina Navarro Urea nitrogen [Mass/Vol] 36.0 mg/dL Critically high 7.0-18.0 [facility] Comment on above: Performed By: #### B MP ####[facility] [address]edd[address] [place], [place] [address]Cu. Emelina Navarro Urea nitrogen/Creatinine [Mass ratio] 21.3 mg/mg Normal [facility] Comment on above: Performed By: #### B ####[facility] [address]ylre[address] [place], [place] [address]Ht. Emelina Navarro Albumin [Mass/volume] in Ser um or PlasmaOrdered By: Ethan Cummings on 12-02-2022 Albumin [Mass/Vol] 3.9 g/dL 3.2-5.5 [facility] Basophils Auto (Bld) [#/Vol] Ordered By: Ethan Cummings on 12-02-2022 Basophils (Bld) [#/Vol] 0.1 10*3/uL 0.0-0.2 [facility] Basophils/100 WBC Auto (Bld) Ordered By: Ethan Cummings on 12-02-2022 Basophils/100 WBC (Bld) 0.7 % . [facility] CT biopsyOrdered By: Ethan Cummings on 12-02-2022 Transferrin [Mass/Vol] 240 mg/dL 180-380 [facility] Creatinine and Glomerular fi ltration rate.predicted panel (S/P/Bld)Ordered By: Ethan Cummings on 12-02-2022 Creatinine [Mass/Vol] 1.58 mg/dL 0.64-1.27 [facility] Eosinophils Auto (Bld) [#/Vo l]Ordered By: Ethan Cummings on 12-02-2022 Eosinophils (Bld) [#/Vol] 0.4 10*3/uL 0.0-0.45 [facility] Eosinophils/100 WBC Auto (Bl d)Ordered By: Ethan Cummings on 12-02-2022 Eosinophils/100 WBC (Bld) 3.5 % . [facility] Erythrocyte distribution wid th Auto (RBC) [Ratio]Ordered By: Ethan Cummings on 12-02-2022 Erythrocyte distribution width (RBC) [Ratio] 19.6 % 12.0-14.8 [facility] Estimated glomerular filtrat ion rate (GFR) non- AmericanOrdered By: Ethan Cummings on 12-02-2022 GFR/1.73 sq M.predicted among non-blacks MDRD (S/P/Bld) [Vol rate/Area] 44 mL/Min [facility] Ferritin [Mass/volume] in Se rum or PlasmaOrdered By: Ethan Cummings on 12-02-2022 Ferritin [Mass/Vol] 85.7 ng/mL 23.9-336.2 [facility] Folate [Mass/volume] in Seru m or PlasmaOrdered By: Ethan Cummings on 12-02-2022 Folate [Mass/Vol] ng/mL >5.9 [facility] Comment on above: Folate reference ran ge: >5.9 ng/mlThe WHO technical consultation on folate and vitamin d44aqrnejdipanr has determined that folate concentrations lessthan 4 ng/ml are considered deficient. Globulin Calc (S) [Mass/Vol] Ordered By: Ethan Cummings on 12-02-2022 Globulin (S) [Mass/Vol] 3.7 g/dL [facility] Hematocrit Auto (Bld) [Volum e fraction]Ordered By: Ethan Cummings on 12-02-2022 Hematocrit (Bld) [Volume fraction] 47.4 % 38.8-50.0 [facility] Hemoglobin [Mass/volume] in BloodOrdered By: Ethan Cummings on 12-02-2022 Hemoglobin (Bld) [Mass/Vol] 15.3 g/dL 13.0-17.0 [facility] Iron [Mass/volume] in Serum or PlasmaOrdered By: Ethan Cummings on 12-02-2022 Iron [Mass/Vol] 96 ug/dL 40-160 [facility] Iron binding capacity [Mass/ volume] in Serum or PlasmaOrdered By: Ethan Cummings on 12-02-2022 Iron binding capacity [Mass/Vol] 336 ug/dL 255-450 [facility] Iron saturation [Mass Fracti on] in Serum or PlasmaOrdered By: Ethan Cummings on 12-02-2022 Iron saturation [Mass fraction] 28.6 % 20-50 [facility] Laboratory - Chemistry and C hemistry - challengeOrdered By: Ethan Cummings on 12-02-2022 Cobalamin (Vitamin B12) [Mass/Vol] 1521 pg/mL 180-914 [facility] Leukocytes [#/volume] correc morris for nucleated erythrocytes in Blood by Automated counOrdered By: Ethan Cummings on 12-02-2022 WBC corrected for nucl RBC Auto (Bld) [#/Vol] 11.8 10*3/uL 4.1-10.5 [facility] Lymphocytes Auto (Bld) [#/Vo l]Ordered By: Ethan Cummings on 12-02-2022 Lymphocytes (Bld) [#/Vol] 2.4 10*3/uL 1.00-4.8 [facility] Lymphocytes/100 WBC Auto (Bl d)Ordered By: Ethan Cummings on 12-02-2022 Lymphocytes/100 WBC (Bld) 20.5 % . [facility] MCH Auto (RBC) [Entitic mass ]Ordered By: Ethan Cummings on 12-02-2022 MCH (RBC) [Entitic mass] 28.3 pg 27.5-35.2 [facility] MCHC Auto (RBC) [Mass/Vol]Or dered By: Ethan Cummings on 12-02-2022 MCHC (RBC) [Mass/Vol] 32.3 g/dL 32.5-35.6 [facility] MCV Auto (RBC) [Entitic vol] Ordered By: Ethan Cummings on 12-02-2022 MCV (RBC) [Entitic vol] 87.5 fL 83.5-101 [facility] Monocytes Auto (Bld) [#/Vol] Ordered By: Ethan Cummings on 12-02-2022 Monocytes (Bld) [#/Vol] 1.0 10*3/uL 0.0-0.8 [facility] Monocytes/100 WBC Auto (Bld) Ordered By: Ethan Cummings on 12-02-2022 Monocytes/100 WBC (Bld) 8.2 % . [facility] Neutrophils Auto (Bld) [#/Vo l]Ordered By: Ethan Cummings on 12-02-2022 Neutrophils (Bld) [#/Vol] 7.9 10*3/uL 1.8-7.7 [facility] Neutrophils/100 WBC Auto (Bl d)Ordered By: Ethan Cummings on 12-02-2022 Neutrophils/100 WBC (Bld) 67.1 % . [facility] No Panel InformationOrdered By: Ethan Cummings on 12-02-2022 Estimated GFR () 53 mL/Min [facility] Comment on above: GFR estimated refere nce range: According to KDOQI guidelines, <60 ml/min/1.73m2 is sufficient to diagnose a patient with chronic kidney disease. Pharmacy Creatinine Clearance (Chem 53.88 [facility] Nucleated erythrocytes [Pres ence] in Blood by Automated countOrdered By: Ethan Cummings on 12-02-2022 Nucleated RBC Auto Ql (Bld) 0.1 /100{WBC} 0-0.5 [facility] Platelet mean volume Auto (B ld) [Entitic vol]Ordered By: Ethan Cummings on 12-02-2022 Platelet mean volume (Bld) [Entitic vol] 8.5 fL 6.6-10.1 [facility] Platelets Auto (Bld) [#/Vol] Ordered By: Ethan Cummings on 12-02-2022 Platelets (Bld) [#/Vol] 214 10*3/uL 150-450 [facility] Protein [Mass/volume] in Ser um or PlasmaOrdered By: Ethan Cummings on 12-02-2022 Protein [Mass/Vol] 7.6 g/dL 6.1-7.9 [facility] RBC Auto (Bld) [#/Vol]Ordere d By: Ethan Cummings on 12-02-2022 RBC (Bld) [#/Vol] 5.41 10*6/uL 3.90-5.60 [facility] Serum or plasma alanine valle otransferase measurement without P-5'-P (enzymatic activiOrdered By: Ethan Cummings on 12-02-2022 ALT No additional P-5'-P [Catalytic activity/Vol] 19 U/L 10-60 [facility] Serum or plasma albumin/glob ulin mass ratioOrdered By: Ethan Cummings on 12-02-2022 Albumin/Globulin [Mass ratio] 1.1 {ratio} [facility] Serum or plasma alkaline tosin sphatase measurement (enzymatic activity/volume)Ordered By: Ethan Cummings on 12-02-2022 ALP [Catalytic activity/Vol] 101 U/L 32-92 [facility] Serum or plasma anion gap de terminationOrdered By: Ethan Cummings on 12-02-2022 Anion gap [Moles/Vol] 13.2 mmol/L 6.0-15.0 [facility] Serum or plasma aspartate am inotransferase measurement (enzymatic activity/volume)Ordered By: Ethan Cummings on 12-02-2022 AST [Catalytic activity/Vol] 32 U/L 10-42 [facility] Serum or plasma calcium mike urement (mass/volume)Ordered By: Ethan Cummings on 12-02-2022 Calcium [Mass/Vol] 9.5 mg/dL 8.2-10.2 [facility] Serum or plasma chloride arash surement (moles/volume)Ordered By: Ethan Cummings on 12-02-2022 Chloride [Moles/Vol] 101 mmol/L 95-114 [facility] Serum or plasma glucose mike urement (mass/volume)Ordered By: Ethan Cummings on 12-02-2022 Glucose [Mass/Vol] 150 mg/dL 70-100 [facility] Comment on above: ADA recommended refe rence rangeRandom Glucose Reference Range is dependent on time and content of last meal. Glucose of more than 200 mg/dL in a nonstressed, ambulatory subject supports the diagnosis of Diabetes Mellitus. Serum or plasma potassium me asurement (moles/volume)Ordered By: Ethan Cummings on 12-02-2022 Potassium [Moles/Vol] 4.3 mmol/L 3.5-5.1 [facility] Serum or plasma sodium measu rement (moles/volume)Ordered By: Ethan Cummings on 12-02-2022 Sodium [Moles/Vol] 140 mmol/L 136-146 [facility] Serum or plasma total biliru bin measurement (mass/volume)Ordered By: Ethan Cummings on 12-02-2022 Bilirubin [Mass/Vol] 1.5 mg/dL 0.3-1.2 [facility] Comment on above: Samples from patient s who have taken Naproxen have shown spurious elevation in Total Bilirubin levels. A metabolite of Naproxen, O-desmethylnaproxen, has been shown to interfere with the Jesi-Ananya method for measuring Total Bilirubin. Serum or plasma total carbon dioxide measurement (moles/volume)Ordered By: Ethan Cummings on 12-02-2022 CO2 [Moles/Vol] 30.1 mmol/L 22.0-30.0 [facility] Serum or plasma urea nitroge n measurement (mass/volume)Ordered By: Ethan Cummings on 12-02-2022 Urea nitrogen [Mass/Vol] 22 mg/dL 08-11 [facility] WBC Auto (Bld) [#/Vol]Ordere d By: Ethan Cummings on 12-02-2022 WBC (Bld) [#/Vol] 11.8 10*3/uL 4.1-10.5 [facility] PROF CHEM 8 (BAS METB)on Anion gap [Moles/Vol] 12.6 mmol/L Normal [facility] Comment on above: Performed By: #### B MP ####[facility] [address] [place] [address]Dr. Emelina Navarro Calcium [Mass/Vol] 9.0 mg/dL Normal 8.5-10.1 [facility] Comment on above: Performed By: #### B MP ####[facility] D[address]cywwli[address] [place] [id number]. Emelina Navarro Chloride [Moles/Vol] 99 mmol/L Normal 98-107 [facility] Comment on above: Performed By: #### B MP ####[facility] Xwslrhuwgx57[address] [place], [place] [address]Gu. Emelina Navarro CO2 [Moles/Vol] 33.2 mmol/L Critically high 21.0-32.0 [facility] Comment on above: Performed By: #### B MP ####[facility] Jacxavidgm[address] [place] [id number]. Emelina Navarro Creatinine [Mass/Vol] 1.75 mg/dL Critically high 0.70-1.30 [facility] Comment on above: Performed By: #### B MP ####[facility] Qzfhxqxeql[address] [place] [address]Dr. Emelina Navarro EGFR-AF [place] 47 mL/min/1.73m2 Critically low >=60 [facility] Comment on above: Performed By: #### B MP ####[facility] Hynlctdcmm25[address] [place] [address]Dr. Emelina Navarro EGFR-NON AF [place] 39 mL/min/1.73m2 Critically low >=60 [facility] Comment on above: Performed By: #### B MP ####[facility] Fdpnqebarq[address] [place], [place] [address]Dr. Emelina Navarro Glucose [Mass/Vol] 132 mg/dL Critically high 74-106 [facility] Comment on above: Performed By: #### B MP ####[facility] Jfvnzjbqon[address] [place], [place] [address]Dr. Emelina Navarro Potassium [Moles/Vol] 3.8 mmol/L Normal 3.5-5.1 [facility] Comment on above: Performed By: #### B MP ####[facility] Emoainhyfw[address] [place], [place] [address]Dr. Emelina Navarro Sodium [Moles/Vol] 141 mmol/L Normal 136-145 [facility] Comment on above: Performed By: #### B MP ####[facility] Avzcvghpoa[address] [place], [place] [address]Dr. Emelina Navarro Urea nitrogen [Mass/Vol] 22.0 mg/dL Critically high 7.0-18.0 [facility] Comment on above: Performed By: #### B MP ####[facility] Qwerjraapo[address] [place], [place] [address]Dr. Emelina Navarro Urea nitrogen/Creatinine [Mass ratio] 12.6 mg/mg Normal [facility] Comment on above: Performed By: #### B MP ####[facility] Ehenticztb[address] [place], [place] [address]Dr. Emelina Navarro A1C HEMOGLOBINon 11-07-2022 HbA1c (Bld) [Mass fraction] 7.4 % [employer] [facility] [employer] Other Glucose - FINGER STICKon Glucose [Mass/Vol] 109 mg/dL [employer] Other HbA1c (Bld) [Mass fraction]o n 11-07-2022 A1C HEMOGLOBIN [facility] [employer] Other PROF CHEM 8 (BAS METB)on Anion gap [Moles/Vol] 12.2 mmol/L Normal [facility] Comment on above: Performed By: #### B MP ####[facility] Tss[address]vaimy[address] [place] [address]Dr. Emelina Navarro Calcium [Mass/Vol] 8.7 mg/dL Normal 8.5-10.1 [facility] Comment on above: Performed By: #### B MP ####[facility] Dithsvtxnx[address] [place], [place] [address]Dr. Emelina Navarro Chloride [Moles/Vol] 101 mmol/L Normal 98-107 [facility] Comment on above: Performed By: #### B MP ####[facility] Hbbiupnfxw[address] [place], [place] [address]Dr. Emelina Navarro CO2 [Moles/Vol] 29.9 mmol/L Normal 21.0-32.0 [facility] Comment on above: Performed By: #### B MP ####[facility] Nhgcodtcty18[address] [place], [place] [address]Dr. Emelina Navarro Creatinine [Mass/Vol] 1.78 mg/dL Critically high 0.70-1.30 [facility] Comment on above: Performed By: #### B MP ####[facility] Reussfjzvk[address] [place], [place] [address]Dr. Emelina Navarro EGFR-AF [place] 46 mL/min/1.73m2 Critically low >=60 [facility] Comment on above: Performed By: #### B MP ####[facility] Hfkofxozty32[address] [place], [place] [address]Dr. Emelina Navarro EGFR-NON AF [place] 38 mL/min/1.73m2 Critically low >=60 [facility] Comment on above: Performed By: #### B MP ####[facility] Hlesfoipnd[address] [place] [address]Dr. Emelina Navarro Glucose [Mass/Vol] 127 mg/dL Critically high 74-106 [facility] Comment on above: Performed By: #### B MP ####[facility] Irjnfhuphd24[address] [place] [address]Dr. Awildanitza Ramon Potassium [Moles/Vol] 4.1 mmol/L Normal 3.5-5.1 [facility] Comment on above: Performed By: #### B MP ####[facility] Aeycztqvpg[address] [place], [place] [address]Dr. Awildanitza Ramon Sodium [Moles/Vol] 139 mmol/L Normal 136-145 [facility] Comment on above: Performed By: #### B MP ####[facility] Cqzsellfek[address] [place], [place] [address]Dr. Awildanitza Ramon Urea nitrogen [Mass/Vol] 39.0 mg/dL Critically high 7.0-18.0 [facility] Comment on above: Performed By: #### B MP ####[facility] Edidjvwfhv[address] [place], [place] [address]Dr. Emelina Navarro Urea nitrogen/Creatinine [Mass ratio] 21.9 mg/mg Normal [facility] Comment on above: Performed By: #### B MP ####[facility] Cuxeyjqonr[address] [place], [place] [address]Dr. Emelina Ramon BNPon 10-03-2022 Natriuretic peptide B (Bld) [Mass/Vol] 7092.0 pg/mL Critically high <=900.0 [facility] Comment on above: Performed By: #### H STROPN, BNP, CMP ####[facility] Zhkxinbqxi[address] [place], [place] [address]Dr. Emelina Ramon CBC AUTO DIFFon 10-03-2022 BASO # 0.0 103/ul Normal 0.0-0.1 [facility] Comment on above: Performed By: #### C BC ####[facility] Rzcuixmqjq24[address] [place] [id number]. Emelina Navarro Basophils/100 WBC (Bld) 0.3 % Normal 0.2-2.0 [facility] Comment on above: Performed By: #### C BC ####[facility] Ntgqqxipfu25[address] [place] [id number]. Emelina Navarro EO # 0.3 103/ul Normal 0.0-0.7 [facility] Comment on above: Performed By: #### C BC ####[facility] Hinikfbabh[address] [place], [place] [address]Dr. Emelina Navarro Eosinophils/100 WBC (Bld) 2.5 % Normal 0.9-7.0 [facility] Comment on above: Performed By: #### C BC ####[facility] Gjmexdmfco[address] [place], [place] [address]Dr. Emelina Navarro Erythrocyte distribution width (RBC) [Ratio] 16.1 % Critically high 11.0-15.0 [facility] Comment on above: Performed By: #### C BC ####[facility] [address]sztz[address] [place] [address]Dr. Emelina Navarro Hematocrit (Bld) [Volume fraction] 40.4 % Critically low 42.0-54.0 [facility] Comment on above: Performed By: #### C BC ####[facility] Efiqjlwrhj1874 [place] [id number]. Emelina Navarro Hemoglobin (Bld) [Mass/Vol] 12.9 g/dL Critically low 14.0-18.0 [facility] Comment on above: Performed By: #### C BC ####[facility] Xdbyyxboct2[address] [place] [id number]. Emelina Navarro IG # 0.05 10e3/ul Critically high 0.00-0.03 [facility] Comment on above: Performed By: #### C BC ####[facility] [address] [place], [place] [address]Dr. Emelina Navarro IG % 0.4 % Normal 0.0-0.5 [facility] Comment on above: Performed By: #### C BC ####[facility] Q[address]fubalje4[address] [place] [id number]. Emelina Navarro LYMPH # 1.5 103/ul Normal 1.2-3.8 [facility] Comment on above: Performed By: #### C BC ####[facility] [address]wrxlxlm25[address] [place], [place] [address]Bj. Emelina Navarro Lymphocytes/100 WBC (Bld) 13.1 % Critically low 20.5-60.0 [facility] Comment on above: Performed By: #### C BC ####[facility] Hyxmbqepgt69[address] [place] [id number]. Emelina Navarro MANUAL DIFF REQ NO Normal [facility] Comment on above: Performed By: #### C BC ####[facility] Uexnstymgd27[address] [place] [id number]. Emelina Navarro MCH (RBC) [Entitic mass] 28.9 pg Normal 25.9-34.0 [facility] Comment on above: Performed By: #### C BC ####[facility] Ofaiyobmln8[address] [place] [address]Dr. Emelina Navarro MCHC (RBC) [Mass/Vol] 31.9 g/dL Normal 29.9-35.2 [facility] Comment on above: Performed By: #### C BC ####[facility] Xgeqsqvofr3619 [place] [id number]. Emelina Navarro MCV (RBC) [Entitic vol] 90.6 fL Normal 80.0-94.0 [facility] Comment on above: Performed By: #### C BC ####[facility] Tojnbajgbx24[address] [place] [id number]. Emelina Navarro MONO # 0.8 103/ul Normal 0.3-0.8 [facility] Comment on above: Performed By: #### C BC ####[facility] Acpupebcgs[address] [place] [id number]. Emelina Navarro Monocytes/100 WBC (Bld) 7.0 % Normal 1.7-12.0 [facility] Comment on above: Performed By: #### C BC ####[facility] [address]zxji60[address] [place], [place] [address]Cb. Emelina Navarro NEUT # 8.8 103/ul Critically high 1.4-6.5 [facility] Comment on above: Performed By: #### C BC ####[facility] [address]rv[address] [place], [place] [address]Uo. Emelina Navarro Neutrophils/100 WBC (Bld) 76.7 % Critically high 43.0-75.0 [facility] Comment on above: Performed By: #### C BC ####[facility] Bvzyezbqnq7[address] [place] [id number]. Emelina Navarro Platelet mean volume (Bld) [Entitic vol] 9.9 fL Normal 9.5-13.5 [facility] Comment on above: Performed By: #### C BC ####[facility] Cneghpwrep[address] [place] [id number]. Emelina Navarro PLT 201 103/ul Normal 150-450 [facility] Comment on above: Performed By: #### C BC ####[facility] Ogfeepotbc[address] [place], [place] [address]Ss. Emelina Navarro RBC 4.46 106/ul Critically low 4.70-6.10 [facility] Comment on above: Performed By: #### C BC ####[facility] Msjajzqxhv264[address] [place] [id number]. Emelina Navarro WBC 11.4 103/ul Critically high 4.0-11.0 [facility] Comment on above: Performed By: #### C BC ####[facility] Msblqvfdtz[address] [place] [id number]. Emelina Navarro [facility] ([facility]on 09-19 SARS-CoV-2 (COVID-19) RNA RADHA+probe Ql (Unsp spec) Not detected Normal NOT DETECTED [facility] Comment on above: Result Comment: When [...] for this test is supported by the [employer] of Health and Human Service's declaration [...] be used). Performed By: #### C VDTBH ####[facility] [address] [place] [address]Dr. Emelina Navarro PROF 14(COMP METB)on 022 Albumin [Mass/Vol] 3.1 g/dL Critically low 3.4-5.0 Th [facility] Comment on above: Performed By: #### H STROPN, BNP, CMP ####[facility] Vniqwcjbjx[address] [place] [address]Dr. Emelina Navarro Albumin/Globulin [Mass ratio] 0.8 {ratio} Normal [facility] Comment on above: Performed By: #### H STROPN, BNP, CMP ####[facility] Kykpmmdxev[address] [place] [address]Dr. Emelina Navarro ALP [Catalytic activity/Vol] 118 U/L Critically high 46-116 [facility] Comment on above: Performed By: #### H STROPN, BNP, CMP ####[facility] Uirglwlsbp028[address] [place] [address]Dr. Emelina Navarro ALT [Catalytic activity/Vol] 22 U/L Normal 16-63 [facility] Comment on above: Performed By: #### H STROPN, BNP, CMP ####[facility] Ruhrrhdlgu64[address] [place] [address]Dr. Emelina Navarro Anion gap [Moles/Vol] 8.6 mmol/L Normal [facility] Comment on above: Performed By: #### H STROPN, BNP, CMP ####[facility] Loaiwbofwn[address] [place] [address]Dr. Emelina Navarro AST [Catalytic activity/Vol] 23 U/L Normal 15-37 [facility] Comment on above: Performed By: #### H STROPN, BNP, CMP ####[facility] Nsldteycam1635 [place] [address]Dr. Emelina Navarro Bilirubin [Mass/Vol] 1.0 mg/dL Normal 0.2-1.0 [facility] Comment on above: Performed By: #### H STROPN, BNP, CMP ####[facility] Zwfwvxonlp5133 [place] [address]Dr. Emelina Navarro Calcium [Mass/Vol] 8.4 mg/dL Critically low 8.5-10.1 Th [facility] Comment on above: Performed By: #### H STROPN, BNP, CMP ####[facility] Viucrmgqgl[address] [place], [place] [address]Dr. Emelina Navarro Chloride [Moles/Vol] 101 mmol/L Normal 98-107 [facility] Comment on above: Performed By: #### H STROPN, BNP, CMP ####[facility] Yrpwpddcxc[address] [place], [place] [address]Dr. Emelina Navarro CO2 [Moles/Vol] 33.3 mmol/L Critically high 21.0-32.0 [facility] Comment on above: Performed By: #### H STROPN, BNP, CMP ####[facility] Poohuocrgn35[address] [place] [address]Dr. Emelina Navarro Creatinine [Mass/Vol] 1.52 mg/dL Critically high 0.70-1.30 [facility] Comment on above: Performed By: #### H STROPN, BNP, CMP ####[facility] Dlphqgypwm7164 [place] [address]Dr. Emelina Navarro EGFR-AF [place] 56 mL/min/1.73m2 Critically low >=60 [facility] Comment on above: Performed By: #### H STROPN, BNP, CMP ####[facility] Daztkqzvxe[address] [place] [address]Dr. Emelina Navarro EGFR-NON AF [place] 46 mL/min/1.73m2 Critically low >=60 [facility] Comment on above: Performed By: #### H STROPN, BNP, CMP ####[facility] Zgfmpkowjk3[address] [place] [address]Dr. Emelina Navarro Globulin (S) [Mass/Vol] 4.1 g/dL Normal [facility] Comment on above: Performed By: #### H STROPN, BNP, CMP ####[facility] Eqacsdhegx9[address] [place] [address]Dr. Emelina Navarro Glucose [Mass/Vol] 141 mg/dL Critically high 74-106 T [facility] Comment on above: Performed By: #### H STROPN, BNP, CMP ####[facility] Fsojiqayyo5782 [place] [address]Dr. Emelina Navarro Potassium [Moles/Vol] 3.9 mmol/L Normal 3.5-5.1 [facility] Comment on above: Performed By: #### H STROPN, BNP, CMP ####[facility] Oksoobkkhb[address] [place], [place] [address]Dr. Emelina Navarro Protein [Mass/Vol] 7.2 g/dL Normal 6.4-8.2 [facility] Comment on above: Performed By: #### H STROPN, BNP, CMP ####[facility] Ttwjtyxluj37[address] [place] [address]Dr. Emelina Navarro Sodium [Moles/Vol] 139 mmol/L Normal 136-145 [facility] Comment on above: Performed By: #### H STROPN, BNP, CMP ####[facility] Dqifwkddgc2753 [place] [address]Dr. Emelina Navarro Urea nitrogen [Mass/Vol] 26.0 mg/dL Critically high 7.0-18.0 [facility] Comment on above: Performed By: #### H STROPN, BNP, CMP ####[facility] Kbudypshcv93[address] [place] [address]Dr. Emelina Navarro Urea nitrogen/Creatinine [Mass ratio] 17.1 mg/mg Normal [facility] Comment on above: Performed By: #### H STROPN, BNP, CMP ####[facility] Mtnopehcoa8[address] [place] [id number]. Emelina Navarro PROTIMEon 10-03-2022 INR Coag (PPP) [Relative time] 1.76 {INR} Normal [facility] Comment on above: Performed By: #### P T, PTT ####[facility] Tjuypglukq[address] [place] [address]Dr. Emelina Navarro INR GUIDELINES SEE BELOW Normal [facility] Comment on above: Result Comment: WENDY RED INR: 2.0 - 3.0 CONDITIONS NOT LISTED BELOW 2.5 - 3.5 FOR PROSTHETIC HEART VALVE REPLACEMENT 2.5 - 3.5 RECURRENT THROMBOSIS Performed By: #### P T, PTT ####[facility] Rinambygaz[address] [place] [address]Dr. Emelina Navarro PT Coag (PPP) [Time] 18.3 s Critically high 9.0-11.6 [facility] Comment on above: Performed By: #### P T, PTT ####[facility] Qmypdyixyv2126 [place] [address]Dr. Emelina Navarro PTTon 10-03-2022 aPTT Coag (Bld) [Time] 33.9 s Normal 22.3-36.2 [facility] Comment on above: Performed By: #### P T, PTT ####[facility] Mrhrfhbrsv69[address] [place] [address]Dr. Emelina Navarro TROPONIN, HIGH SENSITIVITYon 10-03-2022 HSTROP 40.2 pg/mL Normal 4.0-76.1 [facility] Comment on above: Result Comment: CUT- OFF POINTS HAVE BEEN ESTABLISHED BASED ON THE FOURTH UNIVERSAL DEFINITIONS OF MYOCARDIALINFARCTION. THE UPPER REFERENCE LIMIT (URL) OF TROPONIN, DEFINED THE 99TH PERCENTILE OFcTnI DISTRIBUTION IN A REFERENCE POPULATION, HAS BEEN CONFIRMED THE DECISION THRESHOLDFOR [place] DIAGNOSIS. Performed By: #### H STROPN, BNP, CMP ####[facility] Cuwapqusah[address] [place] [address]Dr. Emelina Navarro XR CHEST 1 Von 10-03-2022 XR CHEST 1 V Normal [facility] PTH INTACTon 09-19-2022 PTH, Intact 52 pg/mL Normal 15-65 [facility] Comment on above: Performed By: #### P THINT ####[facility] Tyyhyzqrwp[address] [place], [place] [address]Dr. Emelina Navarro FERRITINon 09-18-2022 Ferritin [Mass/Vol] 92.0 ng/mL Normal 26.0-388.0 [facility] Comment on above: Performed By: #### V ITAD, FERR, FETIBC ####[facility] Gjuxohdpez9[address] [place] [address]Dr. Emelina Navarro HEMOGRAM AND PLATELon 2021 Hematocrit (Bld) [Volume fraction] 44.3 % Normal 42.0-54.0 [facility] Comment on above: Performed By: #### H H ####[facility] Tbalxncolo[address] [place], [place] [address]Dr. Emelina Navarro Hemoglobin (Bld) [Mass/Vol] 14.0 g/dL Normal 14.0-18.0 [facility] Comment on above: Performed By: #### H H ####[facility] Fvraprothh[address] [place], [place] [address]Dr. Emelina Navarro MCH (RBC) [Entitic mass] 29.0 pg Normal 25.9-34.0 [facility] Comment on above: Performed By: #### H H ####[facility] Vgnujrrhcn[address] [place], [place] [address]Dr. Emelina Navarro MCHC (RBC) [Mass/Vol] 31.6 g/dL Normal 29.9-35.2 [facility] Comment on above: Performed By: #### H H ####[facility] Nfvirnpczi52[address] [place], [place] [address]Dr. Emelina Navarro MCV (RBC) [Entitic vol] 91.7 fL Normal 80.0-94.0 [facility] Comment on above: Performed By: #### H H ####[facility] Ehbohlmuci44[address] [place], [place] [address]DrWesley Navarro PLT 187 103/ul Normal 150-450 [facility] Comment on above: Performed By: #### H H ####[facility] Lhptecaoob04[address] [place] [id number]. Emelina Navarro RBC 4.83 106/ul Normal 4.70-6.10 [facility] Comment on above: Performed By: #### H H ####[facility] Drjessxguv8568 [place] [id number]. Emelina Navarro WBC 13.9 103/ul Critically high 4.0-11.0 The [facility] Comment on above: Performed By: #### H H ####[facility] Oahnnglbkx0950 [place] [id number]. Emelina Navarro IRON AND TIBCon 09-18-2022 % SATURATION 28.9 % Normal [facility] Comment on above: Performed By: #### V ITAD, FERR, FETIBC ####[facility] Zojcaeztbu[address] [place] [address]Dr. Emelina Navarro Iron [Mass/Vol] 76.0 ug/dL Normal 65.0-175.0 [facility] Comment on above: Performed By: #### V ITAD, FERR, FETIBC ####[facility] Otqntdkjjy9[address] [place] [address]Dr. Emelina Navarro TIBC DIRECT 263.0 ug/dL Normal 250.0-450. 0 [facility] Comment on above: Performed By: #### V ITAD, FERR, FETIBC ####[facility] Jmcquzemtf[address] [place] [address]Dr. Emelina Navarro MAGNESIUMon 09-18-2022 Magnesium [Mass/Vol] 2.3 mg/dL Normal 1.8-2.4 [facility] Comment on above: Performed By: #### R ENAL, URIC, MG ####[facility] Ulacymywgy8634 [place] [address]Dr. Emelina Navarro RENAL FUNCTION PANELon 09-18 Albumin [Mass/Vol] 3.5 g/dL Normal 3.4-5.0 [facility] Comment on above: Performed By: #### R ENAL, URIC, MG ####[facility] Sjjhlouutr8499 [place] [address]Dr. Emelina Navarro Calcium [Mass/Vol] 8.4 mg/dL Critically low 8.5-10.1 Th [facility] Comment on above: Performed By: #### R ENAL, URIC, MG ####[facility] Yqwcuokjha6111 [place] [address]Dr. Emelina Navarro Chloride [Moles/Vol] 100 mmol/L Normal 98-107 [facility] Comment on above: Performed By: #### R ENAL, URIC, MG ####[facility] Xrbwczeqzu0382 [place] [address]Dr. Emelina Navarro CO2 [Moles/Vol] 31.0 mmol/L Normal 21.0-32.0 [facility] Comment on above: Performed By: #### R ENAL, URIC, MG ####[facility] Xmsjkgonfd[address] [place], [place] [address]Dr. Awildanitza Navarro Creatinine [Mass/Vol] 1.63 mg/dL Critically high 0.70-1.30 [facility] Comment on above: Performed By: #### R ENAL, URIC, MG ####[facility] Vlaugdvfxt[address] [place], [place] [address]Dr. Emleina Ramon EGFR-AF [place] 51 mL/min/1.73m2 Critically low >=60 [facility] Comment on above: Performed By: #### R ENAL, URIC, MG ####[facility] Zcpzqidtfu[address] [place], [place] [address]Dr. Emelina Ramon EGFR-NON AF [place] 42 mL/min/1.73m2 Critically low >=60 [facility] Comment on above: Performed By: #### R ENAL, URIC, MG ####[facility] Ueixnvovns[address] [place], [place] [address]Dr. Awildanitza Navarro Glucose [Mass/Vol] 135 mg/dL Critically high 74-106 T [facility] Comment on above: Performed By: #### R ENAL, URIC, MG ####[facility] Ultdqwcjxa[address] [place], [place] [address]Dr. Emelina Navarro Phosphate [Mass/Vol] 3.4 mg/dL Normal 2.6-4.7 [facility] Comment on above: Performed By: #### R ENAMEYA URIC, MG ####[facility] Bjsllyycsz3872 [place] [address]Dr. Emelina Navarro Potassium [Moles/Vol] 4.5 mmol/L Normal 3.5-5.1 [facility] Comment on above: Performed By: #### R ENAMEYA URIC, MG ####[facility] Izijxkoevy37[address] [place] [address]Dr. Emelina Navarro Sodium [Moles/Vol] 137 mmol/L Normal 136-145 [facility] Comment on above: Performed By: #### R UZAIR URIC, MG ####[facility] Lxxsdjnsmq1538 [place] [address]Dr. Emelina Navarro Urea nitrogen [Mass/Vol] 26.0 mg/dL Critically high 7.0-18.0 [facility] Comment on above: Performed By: #### R ENAMEYA URIC, MG ####[facility] Eswanupnoy0619 [place] [address]Dr. Emelina Navarro UA RANDOM W/MICROSCOPICon BACTERIA NONE SEEN Normal NONE SEEN [facility] Comment on above: Performed By: #### U AMIC ####[facility] Jsffkiiccd9446 [place] [address]Dr. Emelina Navarro Bilirubin Ql (U) Negative Normal NEGATIVE [facility] Comment on above: Performed By: #### U AMIC ####[facility] Gsefyfwyjf20[address] [place] [address]Dr. Emelina Navarro CAST NONE SEEN Normal NONE SEEN [facility] Comment on above: Performed By: #### U AMIC ####[facility] Njinfmhqlt54[address] [place], [place] [address]Dr. Emelina Navarro Clarity (U) CLEAR Normal CLEAR [facility] Comment on above: Performed By: #### U AMIC ####[facility] Hopmrhpgfv8472 [place] [address]Dr. Emelina Navarro Color (U) LT. YELLOW Normal YELLOW [facility] Comment on above: Performed By: #### U AMIC ####[facility] Ctmnrgucnb8274 [place] [address]Dr. Emelina Navarro Crystals LM Nom (Urine sed) NONE SEEN Normal NONE SEEN [facility] Comment on above: Performed By: #### U AMIC ####[facility] Pofythssfp6490 [place] [address]Dr. Emelina Navarro Epithelial cells LM Ql (Urine sed) NONE SEEN Normal NONE SEEN /RARE [facility] Comment on above: Performed By: #### U AMIC ####[facility] Lodxfasqbo4471 [place] [address]Dr. Emelina Navarro Glucose Ql (U) >1000 Abnormal NEGATIVE [facility] Comment on above: Performed By: #### U AMIC ####[facility] Lbixolzrpy2483 [place] [address]Dr. Emelina Navarro Hemoglobin Ql (U) Negative Normal NEGATIVE [facility] Comment on above: Performed By: #### U AMIC ####[facility] Xertsxilsz0363 [place] [address]Dr. Emelina Navarro Ketones Ql (U) Negative Normal NEGATIVE [facility] Comment on above: Performed By: #### U AMIC ####[facility] Akpadxmgfk3098 [place] [address]Dr. Emelina Navarro LEUKOCYTES Negative Normal NEGATIVE [facility] Comment on above: Performed By: #### U AMIC ####[facility] Huhbehieef3100 [place] [address]Dr. Emelina Navarro MUCOUS NONE SEEN Normal NONE SEEN [facility] Comment on above: Performed By: #### U AMIC ####[facility] Frobzyvjuv7016 [place] [address]Dr. Emelina Navarro Nitrite Ql (U) Negative Normal NEGATIVE [facility] Comment on above: Performed By: #### U AMIC ####[facility] Qizonyqjer0283 [place] [address]Dr. Emelina Navarro pH (U) 6.0 [pH] Normal 5-9 [facility] Comment on above: Performed By: #### U AMIC ####[facility] Wsqbfgaccx9651 [place] [address]Dr. Emelina Navarro RBC 0-2 Normal 0-2 [facility] Comment on above: Performed By: #### U AMIC ####[facility] Pqfrffasul[address] [place] [id number]. Emelina Navarro SPEC GRAVITY 1.010 Normal 1.005-<=1. 025 [facility] Comment on above: Performed By: #### U AMIC ####[facility] Dbhpgqptkn0932 [place] [address]Dr. Awildanitza Navarro UA PROTEIN Negative Normal NEGATIVE/ TRACE [facility] Comment on above: Performed By: #### U AMIC ####[facility] Uvmlghpelf4725 [place] [address]Dr. Awildanitza Navarro Urobilinogen Qn (U) 0.2 {Ashley'U}/dL Normal 0.2 - 1. 0 [facility] Comment on above: Performed By: #### U AMIC ####[facility] Yvqpmijxmc[address] [place], [place] [address]Dr. Emelina Navarro WBC NONE SEEN Normal NONE SEEN [facility] Comment on above: Performed By: #### U AMIC ####[facility] Mqeaxlhwea2714 [place] [address]Dr. Emelina Navarro URIC ACID SERUMon 09-18-2022 Urate [Mass/Vol] 9.2 mg/dL Critically high 3.5-7.2 [facility] Comment on above: Performed By: #### R ENAL, URIC, MG ####[facility] Ztskpbxdzm7071 [place] [address]Dr. Emelina Navarro URINE T PROTEIN CREAT RATIOo n 09-18-2022 Protein (U) [Mass/Vol] 17.5 mg/dL Critically high <=12.0 [facility] Comment on above: Performed By: #### U RTPCR ####[facility] Fvocnhlsse[address] [place], [place] [address]Dr. Emelina Navarro UR PROT CREAT RAT 0.61 Normal [facility] Comment on above: Performed By: #### U RTPCR ####[facility] Zllxzvubav9677 [place] [address]Dr. Emelina Navarro URINE CREAT 28.53 mg/dL Normal 20.00-300. 00 [facility] Comment on above: Performed By: #### U RTPCR ####[facility] Rzsxwhanvb8380 [place] [id number]. Emelina Navarro VITAMIN D 25 OHon 09-18-2022 VIT D 25-OH 49.6 ng/mL Normal [facility] Comment on above: Performed By: #### V ITANA CRUZ, FETIBC ####[facility] Mbeqhqdsxa66[address] [place] [address]Dr. Emelina Navarro VIT D RANGES SEE BELOW Normal [facility] Comment on above: Result Comment: <20 ng/mL Vit D deficient 20 - <30 ng/mL Vit D insufficient 30 - 100 ng/mL Vit D sufficient >100 ng/mL Potential Toxicity Performed By: #### V ITADANA, FETIBC ####[facility] Uksjhkprbg1685 [place] [address]Dr. Emelina Navarro A1C HEMOGLOBINon 07-31-2022 HbA1c (Bld) [Mass fraction] 6.7 % [employer] Other Glucose - FINGER STICKon Glucose [Mass/Vol] 338 mg/dL [employer] Other HbA1c (Bld) [Mass fraction]o n 07-31-2022 A1C HEMOGLOBIN [facility] [employer] Other BNPon 07-19-2022 Natriuretic peptide B (Bld) [Mass/Vol] 7571.0 pg/mL Critically high <=900.0 [facility] Comment on above: Performed By: #### B MP, BNP ####[facility] Uuzzkqtftw1998 [place] [id number]. Emelina Navarro PROF CHEM 8 (BAS METB)on Anion gap [Moles/Vol] 11.6 mmol/L Normal [facility] Comment on above: Performed By: #### B MP, BNP ####[facility] Oauftcylid5804 [place] [address]Dr. Emelina Navarro Calcium [Mass/Vol] 9.2 mg/dL Normal 8.5-10.1 [facility] Comment on above: Performed By: #### B MP, BNP ####[facility] Lzmvilmowv[address] [place], [place] [address]Dr. Emelina Navarro Chloride [Moles/Vol] 102 mmol/L Normal 98-107 [facility] Comment on above: Performed By: #### B MP, BNP ####[facility] Drmtrhzwpo90[address] [place], [place] [address]Dr. Emelina Navarro CO2 [Moles/Vol] 30.6 mmol/L Normal 21.0-32.0 [facility] Comment on above: Performed By: #### B MP, BNP ####[facility] Kfvkigwauo[address] [place], [place] [address]Dr. Emelina Navarro Creatinine [Mass/Vol] 1.72 mg/dL Critically high 0.70-1.30 [facility] Comment on above: Performed By: #### B MP, BNP ####[facility] Akjhpjfzni[address] [place], [place] [address]Dr. Emelina Navarro EGFR-AF [place] 48 mL/min/1.73m2 Critically low >=60 [facility] Comment on above: Performed By: #### B MP, BNP ####[facility] Kvrguunmoo[address] [place], [place] [address]Dr. Emelina Navarro EGFR-NON AF [place] 40 mL/min/1.73m2 Critically low >=60 [facility] Comment on above: Performed By: #### B MP, BNP ####[facility] Opfwhntxno00[address] [place], [place] [address]Dr. Emelina Navarro Glucose [Mass/Vol] 76 mg/dL Normal 74-106 [facility] Comment on above: Performed By: #### B MP, BNP ####[facility] Icotaxegkf[address] [place], [place] [address]Dr. Awildanitza Navarro Potassium [Moles/Vol] 4.2 mmol/L Normal 3.5-5.1 [facility] Comment on above: Performed By: #### B MP, BNP ####[facility] Xtskmynuta46[address] [place], [place] [address]Dr. Emelina Navarro Sodium [Moles/Vol] 140 mmol/L Normal 136-145 [facility] Comment on above: Performed By: #### B MP, BNP ####[facility] Kclbhpkgrk[address] [place], [place] [address]Dr. Emelina Navarro Urea nitrogen [Mass/Vol] 19.0 mg/dL Critically high 7.0-18.0 [facility] Comment on above: Performed By: #### B MP, BNP ####[facility] Iojzcbywzq47[address] [place], [place] [address]Dr. Emelina Ramon Urea nitrogen/Creatinine [Mass ratio] 11.0 mg/mg Normal [facility] Comment on above: Performed By: #### B MP, BNP ####[facility] Bnujavcaej[address] [place], [place] [address]Dr. Emelina Navarro CBC AUTO DIFFon 06-16-2022 BASO # 0.0 103/ul Normal 0.0-0.1 [facility] Comment on above: Performed By: #### C BC ####[facility] Fnfrzkcgfy[address] [place], [place] [address]Dr. Emelina Ramon Basophils/100 WBC (Bld) 0.1 % Critically low 0.2-2.0 [facility] Comment on above: Performed By: #### C BC ####[facility] Bfpahdqdcy3[address] [place], [place] [address]Dr. Emelina Navarro EO # 0.1 103/ul Normal 0.0-0.7 [facility] Comment on above: Performed By: #### C BC ####[facility] Dnylvvdhsu[address] [place], [place] [address]Dr. Emelina Ramon Eosinophils/100 WBC (Bld) 0.4 % Critically low 0.9-7.0 [facility] Comment on above: Performed By: #### C BC ####[facility] Tmebcrihxu5[address] [place] [address]Dr. Emelina Navarro Erythrocyte distribution width (RBC) [Ratio] 17.1 % Critically high 11.0-15.0 [facility] Comment on above: Performed By: #### C BC ####[facility] Eoockfqgon4306 [place] [address]Dr. Emelina Navarro Hematocrit (Bld) [Volume fraction] 44.7 % Normal 42.0-54.0 [facility] Comment on above: Performed By: #### C BC ####[facility] Shdkadlmtt4[address] [place], [place] [address]Dr. Emelina Navarro Hemoglobin (Bld) [Mass/Vol] 14.5 g/dL Normal 14.0-18.0 [facility] Comment on above: Performed By: #### C BC ####[facility] Gfsquibpez[address] [place], [place] [address]Dr. Emelina Navarro IG # 0.07 10e3/ul Critically high 0.00-0.03 [facility] Comment on above: Performed By: #### C BC ####[facility] Rjyxvyowbb2[address] [place], [place] [address]Dr. Awildanitza Navarro IG % 0.4 % Normal 0.0-0.5 [facility] Comment on above: Performed By: #### C BC ####[facility] Bousdffygn[address] [place], [place] [address]Dr. Emelina Navarro LYMPH # 2.0 103/ul Normal 1.2-3.8 [facility] Comment on above: Performed By: #### C BC ####[facility] Xtwnaegbdt[address] [place], [place] [address]Dr. Awildanitza Navarro Lymphocytes/100 WBC (Bld) 12.1 % Critically low 20.5-60.0 [facility] Comment on above: Performed By: #### C BC ####[facility] X[address]htxvjwvh[address] [place], [place] [address]Dr. Awildanitza Navarro MANUAL DIFF REQ NO Normal [facility] Comment on above: Performed By: #### C BC ####[facility] Vkoplwmmvx[address] [place], [place] [address]Dr. Emelina Navarro MCH (RBC) [Entitic mass] 28.2 pg Normal 25.9-34.0 [facility] Comment on above: Performed By: #### C BC ####[facility] Wteynkqkit[address]86 [place] [place] [address]Dr. Emelina Navarro MCHC (RBC) [Mass/Vol] 32.4 g/dL Normal 29.9-35.2 [facility] Comment on above: Performed By: #### C BC ####[facility] Ignejpipgv6154 [place] [address]Dr. Emelina Navarro MCV (RBC) [Entitic vol] 86.8 fL Normal 80.0-94.0 [facility] Comment on above: Performed By: #### C BC ####[facility] Gzfpnrzabu3390 [place] [address]Dr. Emelina Ramon MONO # 0.7 103/ul Normal 0.3-0.8 [facility] Comment on above: Performed By: #### C BC ####[facility] Danzspjotr5314 [place] [address]Dr. Emelina Ramon Monocytes/100 WBC (Bld) 4.3 % Normal 1.7-12.0 [facility] Comment on above: Performed By: #### C BC ####[facility] Uxwwwcgqda0728 [place] [address]Dr. Emelina Navarro NEUT # 13.4 103/ul Critically high 1.4-6.5 The [facility] Comment on above: Performed By: #### C BC ####[facility] Obzdfcaaze9623 [place] [address]Dr. Emelina Ramon Neutrophils/100 WBC (Bld) 82.7 % Critically high 43.0-75.0 [facility] Comment on above: Performed By: #### C BC ####[facility] Swujgnmpfb7942 [place] [address]Dr. Emelina Navarro Platelet mean volume (Bld) [Entitic vol] 9.5 fL Normal 9.5-13.5 [facility] Comment on above: Performed By: #### C BC ####[facility] Vrnsrzyfue9350 [place] [id number]. Awildanitza Ramon PLT 218 103/ul Normal 150-450 [facility] Comment on above: Performed By: #### C BC ####[facility] Wimxwvtwbo6364 [place] [address]Dr. Awildanitza Navarro RBC 5.15 106/ul Normal 4.70-6.10 [facility] Comment on above: Performed By: #### C BC ####[facility] Mzpklooyhc5790 [place] [address]Dr. Awildanitza Ramon WBC 16.2 103/ul Critically high 4.0-11.0 [facility] Comment on above: Performed By: #### C BC ####[facility] Flioeiwsiw9[address] [place], [place] [address]Dr. Emelina Navarro PROF 14(COMP METB)on 022 Albumin [Mass/Vol] 3.3 g/dL Critically low 3.4-5.0 [facility] Comment on above: Performed By: #### C MP ####[facility] Egpulnmcks5519 [place] [address]Dr. Emelina Navarro Albumin/Globulin [Mass ratio] 0.8 {ratio} Normal [facility] Comment on above: Performed By: #### C MP ####[facility] Kjlyjivwxm3166 [place] [address]Dr. Emelina Navarro ALP [Catalytic activity/Vol] 81 U/L Normal 46-116 [facility] Comment on above: Performed By: #### C MP ####[facility] Jhplcxpwaz8440 [place] [address]Dr. Emelina Navarro ALT [Catalytic activity/Vol] 34 U/L Normal 16-63 [facility] Comment on above: Performed By: #### C MP ####[facility] Arahsmgdvb9[address] [place], [place] [address]Dr. Emelina Navarro Anion gap [Moles/Vol] 14.1 mmol/L Normal [facility] Comment on above: Performed By: #### C MP ####[facility] Sefrhhpxgs3481 [place] [address]Dr. Emelina Navarro AST [Catalytic activity/Vol] 22 U/L Normal 15-37 [facility] Comment on above: Performed By: #### C MP ####[facility] Inhmiadznz3984 [place] [address]Dr. Emelina Navarro Bilirubin [Mass/Vol] 1.0 mg/dL Normal 0.2-1.0 [facility] Comment on above: Performed By: #### C MP ####[facility] Vtpkfqnxgo97[address] [place], [place] [address]Dr. Emelina Navarro Calcium [Mass/Vol] 8.6 mg/dL Normal 8.5-10.1 [facility] Comment on above: Performed By: #### C MP ####[facility] Zwgfqokbze11[address] [place], [place] [address]Dr. Emelina Navarro Chloride [Moles/Vol] 98 mmol/L Normal 98-107 [facility] Comment on above: Performed By: #### C MP ####[facility] Wkocebfwsw7646[address] [place], [place] [address]Dr. Emelina Navarro CO2 [Moles/Vol] 28.0 mmol/L Normal 21.0-32.0 [facility] Comment on above: Performed By: #### C MP ####[facility] Imurqoiwie5348[address] [place], [place] [address]Dr. Emelina Navarro Creatinine [Mass/Vol] 1.83 mg/dL Critically high 0.70-1.30 [facility] Comment on above: Performed By: #### C MP ####[facility] Ayjsmfavep068[address] [place], [place] [address]Dr. Emelina Navarro EGFR-AF [place] 45 mL/min/1.73m2 Critically low >=60 [facility] Comment on above: Performed By: #### C MP ####[facility] Ifwzrezxkp1418[address] [place], [place] [address]Dr. Emelina Navarro EGFR-NON AF [place] 37 mL/min/1.73m2 Critically low >=60 [facility] Comment on above: Performed By: #### C MP ####[facility] Jznwbkghwq7616 [place] [address]Dr. Emelina Navarro Globulin (S) [Mass/Vol] 4.3 g/dL Normal [facility] Comment on above: Performed By: #### C MP ####[facility] Uwiblpzrgj5301 [place] [address]Dr. Emelina Navarro Glucose [Mass/Vol] 173 mg/dL Critically high 74-106 [facility] Comment on above: Performed By: #### C MP ####[facility] Qoqeemyjlm8519 [place] [address]Dr. Emelina Navarro Potassium [Moles/Vol] 4.1 mmol/L Normal 3.5-5.1 [facility] Comment on above: Performed By: #### C MP ####[facility] Yrixhzvnbh4724[address] [place], [place] [address]Dr. Emelina Navarro Protein [Mass/Vol] 7.6 g/dL Normal 6.4-8.2 [facility] Comment on above: Performed By: #### C MP ####[facility] Vlmisylksv6785[address] [place], [place] [address]Dr. Emelina Navarro Sodium [Moles/Vol] 136 mmol/L Normal 136-145 [facility] Comment on above: Performed By: #### C MP ####[facility] Bzssvggnwm06[address] [place], [place] [address]Dr. Emelina Navarro Urea nitrogen [Mass/Vol] 46.0 mg/dL Critically high 7.0-18.0 [facility] Comment on above: Performed By: #### C MP ####[facility] Jocdlaxhtb424[address] [place], [place] [address]Dr. Emelina Navarro Urea nitrogen/Creatinine [Mass ratio] 25.1 mg/mg Normal [facility] Comment on above: Performed By: #### C MP ####[facility] Qwohknfrxj9410 [place] [address]Dr. Emelina Navarro PROTIMEon 06-16-2022 INR Coag (PPP) [Relative time] 2.12 {INR} Normal [facility] Comment on above: Performed By: #### P T ####[facility] Jdclmgkhhi3310 [place] [address]Dr. Emelina Ramon INR GUIDELINES SEE BELOW Normal [facility] Comment on above: Result Comment: WENDY RED INR: 2.0 - 3.0 CONDITIONS NOT LISTED BELOW 2.5 - 3.5 FOR PROSTHETIC HEART VALVE REPLACEMENT 2.5 - 3.5 RECURRENT THROMBOSIS Performed By: #### P T ####[facility] Kiwdxlybpz330[address] [place], [place] [address]Dr. Emelina aNvarro PT Coag (PPP) [Time] 21.8 s Critically high 9.0-11.6 [facility] Comment on above: Performed By: #### P T ####[facility] Sltzlpigue265[address] [place], [place] [address]DrWesley Emelina Ramon BNPon 06-15-2022 Natriuretic peptide B (Bld) [Mass/Vol] 4304.0 pg/mL Critically high <=900.0 [facility] Comment on above: Performed By: #### B [employer] ####[facility] Xwczprlnkd0723[address] [place], [place] [address]Dr. Emelina Ramon CBC AUTO DIFFon 06-15-2022 BASO # 0.0 103/ul Normal 0.0-0.1 [facility] Comment on above: Performed By: #### C BC ####[facility] Odagcrdiwe9[address] [place], [place] [address]Dr. Emelina Navarro Basophils/100 WBC (Bld) 0.1 % Critically low 0.2-2.0 [facility] Comment on above: Performed By: #### C BC ####[facility] Pznikuqcea8846[address] [place], [place] [address]Dr. Emelina Navarro EO # 0.0 103/ul Normal 0.0-0.7 [facility] Comment on above: Performed By: #### C BC ####[facility] Tivxblsrrt6810[address] [place], [place] [address]Dr. Emelina Navarro Eosinophils/100 WBC (Bld) 0.1 % Critically low 0.9-7.0 [facility] Comment on above: Performed By: #### C BC ####[facility] Obvddyiatz9407 [place] [address]Dr. Emelina Navarro Erythrocyte distribution width (RBC) [Ratio] 17.1 % Critically high 11.0-15.0 [facility] Comment on above: Performed By: #### C BC ####[facility] Zzipcvysfw5611 [place] [address]Dr. Emelina Navarro Hematocrit (Bld) [Volume fraction] 40.9 % Critically low 42.0-54.0 [facility] Comment on above: Performed By: #### C BC ####[facility] Hcwvgbufsa7360[address] [place], [place] [address]Dr. Awildanitza Navarro Hemoglobin (Bld) [Mass/Vol] 13.4 g/dL Critically low 14.0-18.0 [facility] Comment on above: Performed By: #### C BC ####[facility] Eagblqhedy9106[address] [place], [place] [address]Dr. Emelina Navarro IG # 0.17 10e3/ul Critically high 0.00-0.03 [facility] Comment on above: Performed By: #### C BC ####[facility] Qvswooikms410[address] [place], [place] [address]Dr. Awildanitza Navarro IG % 0.8 % Critically high 0.0-0.5 [facility] Comment on above: Performed By: #### C BC ####[facility] Iovcbvinvs173[address] [place], [place] [address]Dr. Emelina Navarro LYMPH # 1.4 103/ul Normal 1.2-3.8 [facility] Comment on above: Performed By: #### C BC ####[facility] Buntxtyfho9846[address] [place], [place] [address]Dr. Emelina Navarro Lymphocytes/100 WBC (Bld) 6.8 % Critically low 20.5-60.0 [facility] Comment on above: Performed By: #### C BC ####[facility] Ttdegzdvqk97[address] [place], [place] [address]Dr. Awlidanitza Navarro MANUAL DIFF REQ NO Normal [facility] Comment on above: Performed By: #### C BC ####[facility] Ycmrophwdp7632 [place] [id number]. Emelina Navarro MCH (RBC) [Entitic mass] 28.6 pg Normal 25.9-34.0 [facility] Comment on above: Performed By: #### C BC ####[facility] Cajkinfuse4011 [place] [address]Dr. Emelina Navarro MCHC (RBC) [Mass/Vol] 32.8 g/dL Normal 29.9-35.2 [facility] Comment on above: Performed By: #### C BC ####[facility] Nodiwapkpc2167[address] [place], [place] [address]Dr. Emelina Navarro MCV (RBC) [Entitic vol] 87.2 fL Normal 80.0-94.0 [facility] Comment on above: Performed By: #### C BC ####[facility] Pvoezughau33[address] [place], [place] [address]Dr. Emelina Navarro MONO # 0.8 103/ul Normal 0.3-0.8 [facility] Comment on above: Performed By: #### C BC ####[facility] Ycmvawgxko3814[address] [place], [place] [address]Dr. Emelina Navarro Monocytes/100 WBC (Bld) 3.8 % Normal 1.7-12.0 [facility] Comment on above: Performed By: #### C BC ####[facility] Genpyzplfg39[address] [place], [place] [address]Dr. Emelina Navarro NEUT # 17.9 103/ul Critically high 1.4-6.5 [facility] Comment on above: Performed By: #### C BC ####[facility] Cebcqopsdm9[address] [place], [place] [address]Dr. Emelina Navarro Neutrophils/100 WBC (Bld) 88.4 % Critically high 43.0-75.0 [facility] Comment on above: Performed By: #### C BC ####[facility] Blygqwgpot842[address] [place], [place] [address]Dr. Emelina Navarro Platelet mean volume (Bld) [Entitic vol] 9.7 fL Normal 9.5-13.5 [facility] Comment on above: Performed By: #### C BC ####[facility] Smhtrkfwor4614 [place] [id number]. Emelina Navarro PLT 211 103/ul Normal 150-450 [facility] Comment on above: Performed By: #### C BC ####[facility] Swhenilrkg6662 [place] [id number]. Emelina Navarro RBC 4.69 106/ul Critically low 4.70-6.10 [facility] Comment on above: Performed By: #### C BC ####[facility] Feajsefcfj6436 [place] [id number]. Emelina Navarro WBC 20.2 103/ul Critically high 4.0-11.0 [facility] Comment on above: Performed By: #### C BC ####[facility] Hsubzcnlrb1458 [place] [address]Dr. Emelina Navarro PROF 14(COMP METB)on 022 Albumin [Mass/Vol] 2.9 g/dL Critically low 3.4-5.0 [facility] Comment on above: Performed By: #### C MP ####[facility] Xjjspkdpol8479 [place] [address]Dr. Emelina Navarro Albumin/Globulin [Mass ratio] 0.7 {ratio} Normal [facility] Comment on above: Performed By: #### C MP ####[facility] Moqjxmlxmr8295 [place] [address]Dr. Emelina Navarro ALP [Catalytic activity/Vol] 77 U/L Normal 46-116 [facility] Comment on above: Performed By: #### C MP ####[facility] Lwxkprzizu4795 [place] [id number]. Emelina Navarro ALT [Catalytic activity/Vol] 26 U/L Normal 16-63 [facility] Comment on above: Performed By: #### C MP ####[facility] Omuytnfznu1967 [place] [address]Dr. Emelina Navarro Anion gap [Moles/Vol] 13.2 mmol/L Normal [facility] Comment on above: Performed By: #### C MP ####[facility] Fpwwhxvtiu2146 [place], [place] [address]Pr. Emelina Navarro AST [Catalytic activity/Vol] 18 U/L Normal 15-37 [facility] Comment on above: Performed By: #### C MP ####[facility] Wzymguqcrq2089 [place], [place] [address]Cx. Emelina Navarro Bilirubin [Mass/Vol] 0.8 mg/dL Normal 0.2-1.0 [facility] Comment on above: Performed By: #### C MP ####[facility] Ppmfgvqhcq1403 [place] [id number]. Emelina Navarro Calcium [Mass/Vol] 8.4 mg/dL Critically low 8.5-10.1 [facility] Comment on above: Performed By: #### C MP ####[facility] Inivkqwetb7580 [place] [id number]. Emelina Navarro Chloride [Moles/Vol] 101 mmol/L Normal 98-107 [facility] Comment on above: Performed By: #### C MP ####[facility] Yffoqbblqe8941 [place] [phone]. Emelina Navarro CO2 [Moles/Vol] 27.9 mmol/L Normal 21.0-32.0 [facility] Comment on above: Performed By: #### C MP ####[facility] Xaiegdgxah8533 [place] [id number]. Emelina Navarro Creatinine [Mass/Vol] 1.90 mg/dL Critically high 0.70-1.30 [facility] Comment on above: Performed By: #### C MP ####[facility] Ljjetahdcr6051 [place] [id number]. Emelina Navarro EGFR-AF [place] 43 mL/min/1.73m2 Critically low >=60 [facility] Comment on above: Performed By: #### C MP ####[facility] Qopdpcnuct1450 [place] [id number]. Emelina Navarro EGFR-NON AF [place] 36 mL/min/1.73m2 Critically low >=60 [facility] Comment on above: Performed By: #### C MP ####[facility] Toqlftdhbf8495 [place] [id number]. Emelina Navarro Globulin (S) [Mass/Vol] 3.9 g/dL Normal [facility] Comment on above: Performed By: #### C MP ####[facility] Cjabhzzaij4635 [place] [address]Dr. Emelina Navarro Glucose [Mass/Vol] 175 mg/dL Critically high 74-106 [facility] Comment on above: Performed By: #### C MP ####[facility] Evtatuccbf1235 [place] [address]Dr. Emelina Navarro Potassium [Moles/Vol] 4.1 mmol/L Normal 3.5-5.1 [facility] Comment on above: Performed By: #### C MP ####[facility] Yhfzexvyqq4[address] [place], [place] [address]Dr. Emelina Navarro Protein [Mass/Vol] 6.8 g/dL Normal 6.4-8.2 [facility] Comment on above: Performed By: #### C MP ####[facility] Nyesfribfn4148 [place] [address]Dr. Emelina Navarro Sodium [Moles/Vol] 138 mmol/L Normal 136-145 [facility] Comment on above: Performed By: #### C MP ####[facility] Vuusujknob5067 [place] [address]Dr. Emelina Navarro Urea nitrogen [Mass/Vol] 46.0 mg/dL Critically high 7.0-18.0 [facility] Comment on above: Performed By: #### C MP ####[facility] Uqdaypndte1095 [place] [address]Dr. Emelina Navarro Urea nitrogen/Creatinine [Mass ratio] 24.2 mg/mg Normal [facility] Comment on above: Performed By: #### C MP ####[facility] Eheftanrmn0267 [place] [address]Dr. Emelina Navarro PROTIMEon 06-15-2022 INR Coag (PPP) [Relative time] 3.34 {INR} Normal [facility] Comment on above: Performed By: #### P T ####[facility] Ggxwvcsjyf0189 [place] [address]Dr. Emelina Navarro INR GUIDELINES SEE BELOW Normal [facility] Comment on above: Result Comment: WENDY RED INR: 2.0 - 3.0 CONDITIONS NOT LISTED BELOW 2.5 - 3.5 FOR PROSTHETIC HEART VALVE REPLACEMENT 2.5 - 3.5 RECURRENT THROMBOSIS Performed By: #### P T ####[facility] Xnwysqttpf7734[address] [place], [place] [address]Dr. Emelina Navarro PT Coag (PPP) [Time] 33.3 s Critically high 9.0-11.6 [facility] Comment on above: Performed By: #### P T ####[facility] Ggehgrknva6[address] [place], [place] [address]Dr. Emelina Navarro CBC AUTO DIFFon 06-14-2022 BASO # 0.0 103/ul Normal 0.0-0.1 [facility] Comment on above: Performed By: #### C BC ####[facility] Bcczqwlcfg[address] [place], [place] [address]Dr. Emelina Navarro Basophils/100 WBC (Bld) 0.1 % Critically low 0.2-2.0 [facility] Comment on above: Performed By: #### C BC ####[facility] Sdzhqqxeov3017[address] [place], [place] [address]Dr. Emelina Navarro EO # 0.0 103/ul Normal 0.0-0.7 [facility] Comment on above: Performed By: #### C BC ####[facility] Lmbujggbnc08[address] [place], [place] [address]Dr. Emelina Navarro Eosinophils/100 WBC (Bld) 0.0 % Critically low 0.9-7.0 [facility] Comment on above: Performed By: #### C BC ####[facility] Ptmavgazpa07[address] [place], [place] [address]Dr. Emelina Navarro Erythrocyte distribution width (RBC) [Ratio] 17.0 % Critically high 11.0-15.0 [facility] Comment on above: Performed By: #### C BC ####[facility] Nidmgjdwjg[address] [place], [place] [address]Dr. Awildanitza Navarro Hematocrit (Bld) [Volume fraction] 40.2 % Critically low 42.0-54.0 [facility] Comment on above: Performed By: #### C BC ####[facility] Yggieuzeuc6329 [place] [address]Dr. Emelina Navarro Hemoglobin (Bld) [Mass/Vol] 13.0 g/dL Critically low 14.0-18.0 [facility] Comment on above: Performed By: #### C BC ####[facility] Ucmicdhxuz3723 [place] [address]Dr. Emelina Navarro IG # 0.18 10e3/ul Critically high 0.00-0.03 [facility] Comment on above: Performed By: #### C BC ####[facility] Jvyztcsjta2867 [place] [address]Dr. Emelina Navarro IG % 0.8 % Critically high 0.0-0.5 [facility] Comment on above: Performed By: #### C BC ####[facility] Ddwyjvlngs5547 [place] [address]Dr. Emelina Navarro LYMPH # 1.1 103/ul Critically low 1.2-3.8 [facility] Comment on above: Performed By: #### C BC ####[facility] Sglkcvubct9671 [place] [address]Dr. Emelina Navarro Lymphocytes/100 WBC (Bld) 5.4 % Critically low 20.5-60.0 [facility] Comment on above: Performed By: #### C BC ####[facility] Mpcmsudgzf0955 [place] [address]Dr. Emelina Navarro MANUAL DIFF REQ NO Normal [facility] Comment on above: Performed By: #### C BC ####[facility] Kqjhknrmim10[address] [place], [place] [address]Dr. Emelina Navarro MCH (RBC) [Entitic mass] 28.4 pg Normal 25.9-34.0 [facility] Comment on above: Performed By: #### C BC ####[facility] Geqpqpefqm05[address] [place], [place] [address]Dr. Emelina Navarro MCHC (RBC) [Mass/Vol] 32.3 g/dL Normal 29.9-35.2 [facility] Comment on above: Performed By: #### C BC ####[facility] Tuwomlzaar9498 [place] [id number]. Emelina Navarro MCV (RBC) [Entitic vol] 88.0 fL Normal 80.0-94.0 [facility] Comment on above: Performed By: #### C BC ####[facility] Hpfqfgolit3399 [place] [id number]. Emelina Navarro MONO # 0.6 103/ul Normal 0.3-0.8 [facility] Comment on above: Performed By: #### C BC ####[facility] Jkdlvnfycy9784 [place] [address]Dr. Emelina Ramon Monocytes/100 WBC (Bld) 3.0 % Normal 1.7-12.0 [facility] Comment on above: Performed By: #### C BC ####[facility] Lhlcutpndq3224 [place] [phone]. Emelina Navarro NEUT # 19.3 103/ul Critically high 1.4-6.5 [facility] Comment on above: Performed By: #### C BC ####[facility] Yljifafuff5371 [place] [id number]. Emelina Navarro Neutrophils/100 WBC (Bld) 90.7 % Critically high 43.0-75.0 [facility] Comment on above: Performed By: #### C BC ####[facility] Wncwehorls5836 [place] [id number]. Emelina Navarro Platelet mean volume (Bld) [Entitic vol] 10.6 fL Normal 9.5-13.5 [facility] Comment on above: Performed By: #### C BC ####[facility] Itjvwlrpfj3672 [place] [id number]. Emelina Ramon PLT 191 103/ul Normal 150-450 [facility] Comment on above: Performed By: #### C BC ####[facility] Fqpfnnxhea9479 [place] [address]Dr. Emelina Navarro RBC 4.57 106/ul Critically low 4.70-6.10 [facility] Comment on above: Performed By: #### C BC ####[facility] Ithcknkaza1997 [place] [address]Dr. Emelina Navarro WBC 21.3 103/ul Critically high 4.0-11.0 [facility] Comment on above: Performed By: #### C BC ####[facility] Rakxehwyyz8[address] [place], [place] [address]Dr. Emelina Navarro PROF 14(COMP METB)on 022 Albumin [Mass/Vol] 2.5 g/dL Critically low 3.4-5.0 [facility] Comment on above: Performed By: #### C MP ####[facility] Rmxbmvswfj[address] [place], [place] [address]Dr. Emelina Navarro Albumin/Globulin [Mass ratio] 0.6 {ratio} Normal [facility] Comment on above: Performed By: #### C MP ####[facility] Vqknpaivgy48[address] [place], [place] [address]Dr. Emelina Navarro ALP [Catalytic activity/Vol] 77 U/L Normal 46-116 [facility] Comment on above: Performed By: #### C MP ####[facility] Movbgmrsrn7667[address] [place], [place] [address]Dr. Emelina Navarro ALT [Catalytic activity/Vol] 25 U/L Normal 16-63 [facility] Comment on above: Performed By: #### C MP ####[facility] Veliiapdzd67[address] [place], [place] [address]Dr. Emelina Navarro Anion gap [Moles/Vol] 12.5 mmol/L Normal [facility] Comment on above: Performed By: #### C MP ####[facility] Vovogbrblb9[address] [place], [place] [address]Dr. Emelina Navarro AST [Catalytic activity/Vol] 34 U/L Normal 15-37 [facility] Comment on above: Performed By: #### C MP ####[facility] Wamdwpaoal[address] [place], [place] [address]Dr. Emelina Navarro Bilirubin [Mass/Vol] 0.9 mg/dL Normal 0.2-1.0 [facility] Comment on above: Performed By: #### C MP ####[facility] Yapymnnrde27[address] [place], [place] [address]Dr. Emelina Navarro Calcium [Mass/Vol] 8.1 mg/dL Critically low 8.5-10.1 [facility] [facility] Comment on above: Performed By: #### C MP ####[facility] Wqnheyifrk[address] [place], [place] [address]Dr. Emelina Navarro Chloride [Moles/Vol] 101 mmol/L Normal 98-107 [facility] Comment on above: Performed By: #### C MP ####[facility] Rmhakbbumj[address] [place], [place] [address]Dr. Emelina Navarro CO2 [Moles/Vol] 24.8 mmol/L Normal 21.0-32.0 The [facility] Comment on above: Performed By: #### C MP ####[facility] Iqkjhsiqmx[address] [place], [place] [address]Dr. Emelina Navarro Creatinine [Mass/Vol] 1.93 mg/dL Critically high 0.70-1.30 [facility] Comment on above: Performed By: #### C MP ####[facility] Ffmtakfatx2537[address] [place], [place] [address]Dr. Emelina Navarro EGFR-AF [place] 42 mL/min/1.73m2 Critically low >=60 [facility] Comment on above: Performed By: #### C MP ####[facility] Tqlduhxula84[address] [place], [place] [address]Dr. Emelina Ramon EGFR-NON AF [place] 35 mL/min/1.73m2 Critically low >=60 [facility] Comment on above: Performed By: #### C MP ####[facility] Glmqjmxnia25[address] [place], [place] [address]Dr. Emelina Ramon Globulin (S) [Mass/Vol] 3.9 g/dL Normal [facility] Comment on above: Performed By: #### C MP ####[facility] [address] [place] [address]Dr. Emelina Navarro Glucose [Mass/Vol] 236 mg/dL Critically high 74-106 T [facility] Comment on above: Performed By: #### C MP ####[facility] Cyomdnifus[address] [place] [address]Dr. Awildanitza Ramon Potassium [Moles/Vol] 5.3 mmol/L Critically high 3.5-5.1 [facility] Comment on above: Performed By: #### C MP ####[facility] Nqcvewgicp[address] [place] [address]Dr. Awildanitza Navarro Protein [Mass/Vol] 6.4 g/dL Normal 6.4-8.2 [facility] Comment on above: Performed By: #### C MP ####[facility] Bgzfbxpjdy9865[address] [place], [place] [address]Dr. Emelina Navarro Sodium [Moles/Vol] 133 mmol/L Critically low 136-145 Th [facility] Comment on above: Performed By: #### C MP ####[facility] Yqojzdfnrk25[address] [place], [place] [address]Dr. Emelina Navarro Urea nitrogen [Mass/Vol] 43.0 mg/dL Critically high 7.0-18.0 [facility] Comment on above: Performed By: #### C MP ####[facility] Iytogbrotm5[address] [place], [place] [address]Dr. Emelina Navarro Urea nitrogen/Creatinine [Mass ratio] 22.3 mg/mg Normal [facility] Comment on above: Performed By: #### C MP ####[facility] [address]rudhwmb[address] [place] [address]Dr. Emelina Navarro PROTIMEon 06-14-2022 INR Coag (PPP) [Relative time] 4.39 {INR} Critically high [facility] Comment on above: Performed By: #### P T ####[facility] Guwnowmcsk252[address] [place], [place] [address]Dr. Emelina Navarro INR GUIDELINES SEE BELOW Normal [facility] Comment on above: Result Comment: WENDY RED INR: 2.0 - 3.0 CONDITIONS NOT LISTED BELOW 2.5 - 3.5 FOR PROSTHETIC HEART VALVE REPLACEMENT 2.5 - 3.5 RECURRENT THROMBOSIS Performed By: #### P T ####[facility] Chhfzblpmg6204[address] [place], [place] [address]Dr. Emelina Navarro PT Coag (PPP) [Time] 43.0 s Critically high 9.0-11.6 [facility] Comment on above: Performed By: #### P T ####[facility] Hvgxqhznaz1326[address] [place], [place] [address]Dr. Emelina Navarro XR CHEST 1 Von 06-14-2022 XR CHEST 1 V Normal [facility] BNPon 06-13-2022 Natriuretic peptide B (Bld) [Mass/Vol] 9889.0 pg/mL Critically high <=900.0 [facility] Comment on above: Performed By: #### B MP, BNP ####[facility] Dfkawttycb99[address] [place], [place] [address]Dr. Emelina Navarro CBC AUTO DIFFon 06-13-2022 BASO # 0.0 103/ul Normal 0.0-0.1 [facility] Comment on above: Performed By: #### C BC ####[facility] Nrgjawfcth08[address] [place], [place] [address]Dr. Emelina Navaror Basophils/100 WBC (Bld) 0.1 % Critically low 0.2-2.0 [facility] Comment on above: Performed By: #### C BC ####[facility] Ewerezndxs9617[address] [place], [place] [address]Dr. Emelina Navarro EO # 0.0 103/ul Normal 0.0-0.7 [facility] Comment on above: Performed By: #### C BC ####[facility] Wgystnxgja633[address] [place], [place] [address]Dr. Emelina Navarro Eosinophils/100 WBC (Bld) 0.0 % Critically low 0.9-7.0 [facility] Comment on above: Performed By: #### C BC ####[facility] Pxtthjfhto6565[address] [place], [place] [address]DrWesley Navarro Erythrocyte distribution width (RBC) [Ratio] 17.4 % Critically high 11.0-15.0 The [facility] Comment on above: Performed By: #### C BC ####[facility] [address]kpy[address] [place] [address]Dr. Emelina Navarro Hematocrit (Bld) [Volume fraction] 43.5 % Normal 42.0-54.0 [facility] Comment on above: Performed By: #### C BC ####[facility] Tlagvnpxzw9206 [place] [address]Dr. Emelina Navarro Hemoglobin (Bld) [Mass/Vol] 14.1 g/dL Normal 14.0-18.0 [facility] Comment on above: Performed By: #### C BC ####[facility] Acmtvxkncv[address] [place], [place] [address]Dr. Emelina Navarro IG # 0.15 10e3/ul Critically high 0.00-0.03 [facility] Comment on above: Performed By: #### C BC ####[facility] Sgylwaoqrm[address] [place], [place] [address]Dr. Emelina Navarro IG % 0.8 % Critically high 0.0-0.5 [facility] Comment on above: Performed By: #### C BC ####[facility] Nuwrcfqhis52[address] [place], [place] [address]DrWesley Navarro LYMPH # 0.9 103/ul Critically low 1.2-3.8 [facility] Comment on above: Performed By: #### C BC ####[facility] Ygayizspvs4528[address] [place], [place] [address]DrWesley Navarro Lymphocytes/100 WBC (Bld) 5.0 % Critically low 20.5-60.0 [facility] Comment on above: Performed By: #### C BC ####[facility] Lxrxftygwt3963[address] [place], [place] [address]DrWesley Navarro MANUAL DIFF REQ NO Normal [facility] Comment on above: Performed By: #### C BC ####[facility] Sscelqeogq[address] [place] [address]Dr. Emelina Navarro MCH (RBC) [Entitic mass] 28.8 pg Normal 25.9-34.0 [facility] Comment on above: Performed By: #### C BC ####[facility] Jcdkdgmlnl0224 [place] [address]DrWesley Navarro MCHC (RBC) [Mass/Vol] 32.4 g/dL Normal 29.9-35.2 [facility] Comment on above: Performed By: #### C BC ####[facility] Zxgiaggtso13[address] [place] [address]DrWesley Navarro MCV (RBC) [Entitic vol] 89.0 fL Normal 80.0-94.0 [facility] Comment on above: Performed By: #### C BC ####[facility] Tnhwrvazgw5[address] [place] [address]DrWesley Navarro MONO # 0.1 103/ul Critically low 0.3-0.8 [facility] Comment on above: Performed By: #### C BC ####[facility] Yrvokbwnvw8326[address] [place], [place] [address]DrWesley Navarro Monocytes/100 WBC (Bld) 0.5 % Critically low 1.7-12.0 [facility] Comment on above: Performed By: #### C BC ####[facility] Rdcqnkhmtt4715[address] [place], [place] [address]DrWesley Navarro NEUT # 17.4 103/ul Critically high 1.4-6.5 The [facility] Comment on above: Performed By: #### C BC ####[facility] Vtqvigmclb6254[address] [place], [place] [address]DrWesley Navarro Neutrophils/100 WBC (Bld) 93.6 % Critically high 43.0-75.0 [facility] Comment on above: Performed By: #### C BC ####[facility] Keeutcusvi4523[address] [place], [place] [address]DrWesley Navarro Platelet mean volume (Bld) [Entitic vol] 9.8 fL Normal 9.5-13.5 [facility] Comment on above: Performed By: #### C BC ####[facility] Wclvbixomj3754[address] [place], [place] [address]DrWesley Navarro PLT 186 103/ul Normal 150-450 [facility] Comment on above: Performed By: #### C BC ####[facility] Is[address]xsuwpq4[address] [place] [id number]. Emelina Navarro RBC 4.89 106/ul Normal 4.70-6.10 [facility] Comment on above: Performed By: #### C BC ####[facility] Pvegnhzygz8[address] [place] [id number]. Awildanitza Ramon WBC 18.6 103/ul Critically high 4.0-11.0 [facility] Comment on above: Performed By: #### C BC ####[facility] Tfeaogfxqx50[address] [place] [id number]. Awildanitza Ramon CT CHEST WO CONon 06-13-2022 CT CHEST WO CON Normal [facility] CULTURE SPUTUMon 06-13-2022 CULTURE SPUTUM Culture Observations : NORMAL RESPIRATORY CEDRIC. Normal [facility] Comment on above: Performed By: #### S PUTCX ####[facility] Rqomoitwxy[address] [place] [address]Dr. Awildanitza Ramon ECHOCARDIO M/2D COMPLETEon 0 06-13-2022 ECHOCARDIO M/2D COMPLETE Normal [facility] POINT OF CARE GLUCOSEon -2 Glucose [Mass/Vol] 255 mg/dL Critically high 74-106 [facility] Comment on above: Performed By: #### P OCGLUC ####[facility] Qteswblzzy[address] [place] [address]Dr. Emelina Navarro Glucose [Mass/Vol] 408 mg/dL Critically high 74-106 [facility] Comment on above: Performed By: #### P OCGLUC ####[facility] Obqtergdqf14[address] [place] [id number]. Emelina Navarro PROF CHEM 8 (BAS METB)on Anion gap [Moles/Vol] 14.7 mmol/L Normal [facility] Comment on above: Performed By: #### B MP, BNP ####[facility] Jfdpjmtxrj23[address] [place] [address]Dr. Emelina Navarro Calcium [Mass/Vol] 8.3 mg/dL Critically low 8.5-10.1 Th [facility] Comment on above: Performed By: #### B MP, BNP ####[facility] Xkhfjzfjax6[address] [place], [place] [address]Dr. Emelina Navarro Chloride [Moles/Vol] 102 mmol/L Normal 98-107 [facility] Comment on above: Performed By: #### B MP, BNP ####[facility] Cctncacsth225[address] [place], [place] [address]Dr. Emelina Navarro CO2 [Moles/Vol] 26.0 mmol/L Normal 21.0-32.0 The [facility] Comment on above: Performed By: #### B MP, BNP ####[facility] Miacrpbpvk5344[address] [place], [place] [address]Dr. Emelina Navarro Creatinine [Mass/Vol] 2.07 mg/dL Critically high 0.70-1.30 [facility] Comment on above: Performed By: #### B MP, BNP ####[facility] Afgjqwstlv080[address] [place], [place] [address]Dr. Emelina Navarro EGFR-AF [place] 39 mL/min/1.73m2 Critically low >=60 [facility] Comment on above: Performed By: #### B MP, BNP ####[facility] Wyaewbkftx8215[address] [place], [place] [address]Dr. Emelina Navarro EGFR-NON AF [place] 32 mL/min/1.73m2 Critically low >=60 [facility] Comment on above: Performed By: #### B MP, BNP ####[facility] Vpuozkeltc[address] [place], [place] [address]Dr. Emelina Navarro Glucose [Mass/Vol] 245 mg/dL Critically high 74-106 [facility] Comment on above: Performed By: #### B MP, BNP ####[facility] Ymndupakmv0180[address] [place], [place] [address]Dr. Awildanitza Navarro Potassium [Moles/Vol] 4.7 mmol/L Normal 3.5-5.1 [facility] Comment on above: Performed By: #### B MP, BNP ####[facility] Sswdwqzodv7[address] [place] [address]Dr. Emelina Navarro Sodium [Moles/Vol] 138 mmol/L Normal 136-145 [facility] Comment on above: Performed By: #### B MP, BNP ####[facility] Wytwpwyfas9552[address] [place], [place] [address]Dr. Emelina Navarro Urea nitrogen [Mass/Vol] 30.0 mg/dL Critically high 7.0-18.0 [facility] Comment on above: Performed By: #### B MP, BNP ####[facility] Nqqacjvmcj3066[address] [place], [place] [address]Dr. Emelina Navarro Urea nitrogen/Creatinine [Mass ratio] 14.5 mg/mg Normal [facility] Comment on above: Performed By: #### B MP, BNP ####[facility] Rusaoebfij2903[address] [place], [place] [address]Dr. Emelina Navarro PROTIMEon 06-13-2022 INR Coag (PPP) [Relative time] 3.59 {INR} Normal [facility] Comment on above: Performed By: #### P T ####[facility] Lulwbjgtpv5974[address] [place], [place] [address]Dr. Emelina Navarro INR GUIDELINES SEE BELOW Normal [facility] Comment on above: Result Comment: WENDY RED INR: 2.0 - 3.0 CONDITIONS NOT LISTED BELOW 2.5 - 3.5 FOR PROSTHETIC HEART VALVE REPLACEMENT 2.5 - 3.5 RECURRENT THROMBOSIS Performed By: #### P T ####[facility] Vkuqkkemxe[address] [place], [place] [address]Dr. Eemlina Navarro PT Coag (PPP) [Time] 35.7 s Critically high 9.0-11.6 [facility] Comment on above: Performed By: #### P T ####[facility] Tyferuiicl037[address] [place], [place] [address]Dr. Emelina Navarro SPUTUM GRAM STAINon 06-13-20 COMMENTS Normal [facility] Comment on above: Performed By: #### S PUTGS ####[facility] Swucbsvllq035[address] [place], [place] [address]DrWesley Navarro DIPHTHEROIDS Normal [facility] Comment on above: Performed By: #### S PUTGS ####[facility] Detxozaiwv[address] [place] [address]Dr. Emelina Navarro EPITHELIALS <25 Normal [facility] Comment on above: Performed By: #### S PUTGS ####[facility] Atvotimclx[address] [place] [address]Dr. Emelina Navarro FUNGAL ELEMENTS Normal [facility] Comment on above: Performed By: #### S PUTGS ####[facility] Hsjfuecesz[address] [place], [place] [address]Dr. Emelina Navarro GRAM NEG BACILLI Normal [facility] Comment on above: Performed By: #### S PUTGS ####[facility] Jlfgnijaks013[address] [place], [place] [address]Dr. Emelina Navarro GRAM NEG DIPPLOCOCCI Normal [facility] Comment on above: Performed By: #### S PUTGS ####[facility] Gssjxzpgha7022[address] [place], [place] [address]Dr. Emelina Navarro GRAM POS BACILLI Normal [facility] Comment on above: Performed By: #### S PUTGS ####[facility] Zangifrrpm3982[address] [place], [place] [address]Dr. Emelina Navarro GRAM POSITIVE COCCI RARE Normal [facility] Comment on above: Performed By: #### S PUTGS ####[facility] Bglpwqggxi9648[address] [place], [place] [address]Dr. Emelina Navarro WBC (Bld) [#/Vol] 10*3/uL Normal [facility] Comment on above: Performed By: #### S PUTGS ####[facility] Infdqlmokw9244[address] [place], [place] [address]Dr. Emelina Navarro XR CHEST 1 Von 06-13-2022 XR CHEST 1 V Normal [facility] BNPon 06-12-2022 Natriuretic peptide B (Bld) [Mass/Vol] 6268.0 pg/mL Critically high <=900.0 [facility] Comment on above: Performed By: #### B [employer] EXEC[employer]IVE DIRECTOR, CMP ####[facility] Pkmphgyrer7668[address] [place], [place] [address]Dr. Emelina Navarro CBC AUTO DIFFon 06-12-2022 BASO # 0.1 103/ul Normal 0.0-0.1 [facility] Comment on above: Performed By: #### C BC ####[facility] Zalozcjxhv032[address] [place] [address]Dr. Emelina Navarro Basophils/100 WBC (Bld) 0.3 % Normal 0.2-2.0 [facility] Comment on above: Performed By: #### C BC ####[facility] Ahrodybrnl553[address] [place], [place] [address]Dr. Emelina Navarro EO # 0.1 103/ul Normal 0.0-0.7 [facility] Comment on above: Performed By: #### C BC ####[facility] Yksepngkqr224[address] [place], [place] [address]Dr. Emelina Navarro Eosinophils/100 WBC (Bld) 0.4 % Critically low 0.9-7.0 [facility] Comment on above: Performed By: #### C BC ####[facility] Lssgfipctv6105[address] [place], [place] [address]Dr. Emelina Navarro Erythrocyte distribution width (RBC) [Ratio] 17.7 % Critically high 11.0-15.0 [facility] Comment on above: Performed By: #### C BC ####[facility] Qmieemlakj230[address] [place], [place] [address]Dr. Emelina Navarro Hematocrit (Bld) [Volume fraction] 44.4 % Normal 42.0-54.0 [facility] Comment on above: Performed By: #### C BC ####[facility] Yhgedvgxos5554[address] [place], [place] [address]Dr. Emelina Navarro Hemoglobin (Bld) [Mass/Vol] 14.3 g/dL Normal 14.0-18.0 [facility] Comment on above: Performed By: #### C BC ####[facility] Srasxwgqwf0101[address] [place], [place] [address]Dr. Emelina Navarro IG # 0.11 10e3/ul Critically high 0.00-0.03 [facility] Comment on above: Performed By: #### C BC ####[facility] Rphmcdqucp45[address] [place] [id number]. Awildanitza Navarro IG % 0.5 % Normal 0.0-0.5 [facility] Comment on above: Performed By: #### C BC ####[facility] [address]ajjqku23[address] [place] [address]Dr. Awildanitza Ramon LYMPH # 1.7 103/ul Normal 1.2-3.8 [facility] Comment on above: Performed By: #### C BC ####[facility] Rcbuelwdjz5[address] [place] [address]Dr. Awildanitza Navarro Lymphocytes/100 WBC (Bld) 8.4 % Critically low 20.5-60.0 [facility] Comment on above: Performed By: #### C BC ####[facility] Bezchdmivb[address] [place] [address]Dr. Emelina Navarro MANUAL DIFF REQ NO Normal [facility] Comment on above: Performed By: #### C BC ####[facility] Wypnihlfwu5[address] [place] [address]Dr. Emelina Ramon MCH (RBC) [Entitic mass] 28.3 pg Normal 25.9-34.0 [facility] Comment on above: Performed By: #### C BC ####[facility] Nmqioximcs5690[address] [place], [place] [address]Dr. Emelina Navarro MCHC (RBC) [Mass/Vol] 32.2 g/dL Normal 29.9-35.2 [facility] Comment on above: Performed By: #### C BC ####[facility] Mtyawnjebg6775[address] [place], [place] [address]Dr. Emelina Navarro MCV (RBC) [Entitic vol] 87.9 fL Normal 80.0-94.0 [facility] Comment on above: Performed By: #### C BC ####[facility] Zswismwwpq2503[address] [place], [place] [address]Dr. Emelina Navarro MONO # 1.4 103/ul Critically high 0.3-0.8 [facility] Comment on above: Performed By: #### C BC ####[facility] Nquxjyxexx05[address] [place] [address]Dr. Emelina Navarro Monocytes/100 WBC (Bld) 7.1 % Normal 1.7-12.0 [facility] Comment on above: Performed By: #### C BC ####[facility] Aaxjneokbb59[address] [place] [address]Dr. Emelina Navarro NEUT # 16.8 103/ul Critically high 1.4-6.5 [facility] Comment on above: Performed By: #### C BC ####[facility] Lbunqlbgaw8968 [place] [address]Dr. Emelina Navarro Neutrophils/100 WBC (Bld) 83.3 % Critically high 43.0-75.0 [facility] Comment on above: Performed By: #### C BC ####[facility] Ubqhcxazkm0217 [place] [address]Dr. Emelina Navarro Platelet mean volume (Bld) [Entitic vol] 10.0 fL Normal 9.5-13.5 [facility] Comment on above: Performed By: #### C BC ####[facility] Utmxygabzp0000[address] [place], [place] [address]Dr. Emelina Navarro PLT 227 103/ul Normal 150-450 [facility] Comment on above: Performed By: #### C BC ####[facility] Tdqirofkmk115[address] [place], [place] [address]Dr. Emelina Navarro RBC 5.05 106/ul Normal 4.70-6.10 [facility] Comment on above: Performed By: #### C BC ####[facility] Xqdnaqxfsl7212[address] [place], [place] [address]Dr. Emelina Navarro WBC 20.2 103/ul Critically high 4.0-11.0 [facility] Comment on above: Performed By: #### C BC ####[facility] Bbhkbgzvwm3876[address] [place], [place] [address]Dr. Emelina Navarro CULTURE BLOODon 06-12-2022 Microscopic examination of blood, culture Culture Observations: NO GROWTH AT 5 DAYS. Normal [facility] Comment on above: Performed By: #### B LDCX2 ####[facility] Mfrexhdukr1660[address] [place], [place] [address]Dr. Awildanitza Navarro Microscopic examination of blood, culture Culture Observations: NO GROWTH AT 5 DAYS. Normal [facility] Comment on above: Performed By: #### B LDCX1 ####[facility] Gopdxdkaci013[address] [place], [place] [address]Dr. Emelina Navarro [facility] SARS-CoV-2 (COVID-19) RNA RADHA+probe Ql (Unsp spec) Not detected Normal NOT DETECTED [facility] Comment on above: Result Comment: When [...] for this test is supported by the [place] of [employer] and Human Service's declaration that [...] be used). Performed By: #### C VDTBH ####[facility] Iggduoosad7773[address] [place], [place] [address]Dr. Emelina Navarro ER URINE PROFILEon 2 Bilirubin Ql (U) Negative Normal NEGATIVE [facility] Comment on above: Performed By: #### E RUR ####[facility] Yhmocalyzj6787[address] [place], [place] [address]Dr. Emelina Navarro Clarity (U) CLEAR Normal CLEAR [facility] Comment on above: Performed By: #### E RUR ####[facility] Quoepkzhbs4947[address] [place], [place] [address]Dr. Emelina Navarro Color (U) YELLOW Normal YELLOW [facility] Comment on above: Performed By: #### E RUR ####[facility] Adgfocczbt3158[address] [place], [place] [address]Dr. Emelina Navarro ERUAHD A micrscopic examina tion will be performed if indicated. Normal [facility] Comment on above: Performed By: #### E RUR ####[facility] Qqvsiviifd6086 [place] [address]Dr. Emelina Navarro Glucose Ql (U) >1000 Abnormal NEGATIVE [facility] Comment on above: Performed By: #### E RUR ####[facility] Rrbmbwsuyg020[address] [place], [place] [address]Dr. Emelina Navarro Hemoglobin Ql (U) Negative Normal NEGATIVE [facility] Comment on above: Performed By: #### E RUR ####[facility] Hgbcwylvap4490[address] [place], [place] [address]Dr. Emelina Ramon Ketones Ql (U) Negative Normal NEGATIVE [facility] Comment on above: Performed By: #### E RUR ####[facility] Miekbzmdlc2350[address] [place], [place] [address]Dr. Emelina Navarro LEUKOCYTES Negative Normal NEGATIVE [facility] Comment on above: Performed By: #### E RUR ####[facility] Kifjqixvoz22[address] [place], [place] [address]Dr. Emelina Navarro Nitrite Ql (U) Negative Normal NEGATIVE [facility] Comment on above: Performed By: #### E RUR ####[facility] Efnhtyeadu7644[address] [place], [place] [address]Dr. Emelina Ramon pH (U) 6.0 [pH] Normal 5-9 [facility] Comment on above: Performed By: #### E RUR ####[facility] Iapvjjggwt4[address] [place], [place] [address]Dr. Emelina Navarro SPEC GRAVITY 1.010 Normal 1.005-<=1. 025 [facility] Comment on above: Performed By: #### E RUR ####[facility] Awyhvpirxx[address] [place], [place] [address]Dr. Emelina Navarro UA PROTEIN Negative Normal NEGATIVE/ TRACE [facility] Comment on above: Performed By: #### E RUR ####[facility] [address] [place] [address]Dr. Emelina Navarro UR MICRO IND NOT INDICATED Normal [facility] Comment on above: Performed By: #### E RUR ####[facility] [address]qzrgpjwnk[address] [place] [address]Dr. Emelina Navarro Urobilinogen Qn (U) 1.0 {Ashley'U}/dL Normal 0.2 - 1. 0 [facility] Comment on above: Performed By: #### E RUR ####[facility] Q[address]ukjelrow[address] [place] [address]Dr. Emelina Navarro LACTATE/LACTIC ACIDon 2021 Lactate [Moles/Vol] 1.2 mmol/L Normal 0.4-1.9 [facility] Comment on above: Performed By: #### L ACT ####[facility] Thxlpzuvso[address] [place], [place] [address]Dr. Emelina Navarro PROF 14(COMP METB)on 022 Albumin [Mass/Vol] 3.4 g/dL Normal 3.4-5.0 [facility] Comment on above: Performed By: #### B NURSES' ASSOCIATION EXECUTIVE DIRECTOR, CMP ####[facility] Msjwwclave[address] [place], [place] [address]Dr. Emelina Navarro Albumin/Globulin [Mass ratio] 0.8 {ratio} Normal [facility] Comment on above: Performed By: #### B NURSES' ASSOCIATION EXECUTIVE DIRECTOR, CMP ####[facility] Likjgwrmec67[address] [place], [place] [address]Dr. Emelina Navarro ALP [Catalytic activity/Vol] 100 U/L Normal 46-116 [facility] Comment on above: Performed By: #### B NURSES' ASSOCIATION EXECUTIVE DIRECTOR, CMP ####[facility] Sbatuqbjxi[address] [place], [place] [address]Dr. Emelina Navarro ALT [Catalytic activity/Vol] 26 U/L Normal 16-63 [facility] Comment on above: Performed By: #### B NURSES' ASSOCIATION EXECUTIVE DIRECTOR, CMP ####[facility] Hsduomsplw[address] [place], [place] [address]Dr. Emelina Navarro Anion gap [Moles/Vol] 11.3 mmol/L Normal Th [facility] Comment on above: Performed By: #### B NURSES' ASSOCIATION EXECUTIVE DIRECTOR, CMP ####[facility] Zflvcwimaj3954[address] [place], [place] [address]Dr. Emelina Navarro AST [Catalytic activity/Vol] 19 U/L Normal 15-37 [facility] Comment on above: Performed By: #### B NURSES' ASSOCIATION EXECUTIVE DIRECTOR, CMP ####[facility] Xbyexebqvb9122[address] [place], [place] [address]Dr. Emelina Navarro Bilirubin [Mass/Vol] 1.4 mg/dL Critically high 0.2-1.0 [facility] Comment on above: Performed By: #### B NURSES' ASSOCIATION EXECUTIVE DIRECTOR, CMP ####[facility] Obhfgzpfht9024[address] [place], [place] [address]Dr. Awildanitza Navarro Calcium [Mass/Vol] 9.1 mg/dL Normal 8.5-10.1 [facility] Comment on above: Performed By: #### B NURSES' ASSOCIATION EXECUTIVE DIRECTOR, CMP ####[facility] Ysbiatrrtc1350[address] [place], [place] [address]Dr. Awildanitza Navarro Chloride [Moles/Vol] 103 mmol/L Normal 98-107 [facility] Comment on above: Performed By: #### B NURSES' ASSOCIATION EXECUTIVE DIRECTOR, CMP ####[facility] Ikxivokjpw3915[address] [place], [place] [address]Dr. Emelina Navarro CO2 [Moles/Vol] 27.8 mmol/L Normal 21.0-32.0 [facility] Comment on above: Performed By: #### B NURSES' ASSOCIATION EXECUTIVE DIRECTOR, CMP ####[facility] Yqhotdqtag6535[address] [place], [place] [address]Dr. Awildanitza Ramon Creatinine [Mass/Vol] 1.75 mg/dL Critically high 0.70-1.30 [facility] Comment on above: Performed By: #### B NURSES' ASSOCIATION EXECUTIVE DIRECTOR, CMP ####[facility] Mgskrawmaf3537[address] [place], [place] [address]Dr. Awildanitza Ramon EGFR-AF [place] 47 mL/min/1.73m2 Critically low >=60 [facility] Comment on above: Performed By: #### B NURSES' ASSOCIATION EXECUTIVE DIRECTOR, CMP ####[facility] Utukozacoa[address] [place], [place] [address]Dr. Emelina Navarro EGFR-NON AF [place] 39 mL/min/1.73m2 Critically low >=60 [facility] Comment on above: Performed By: #### B NURSES' ASSOCIATION EXECUTIVE DIRECTOR, CMP ####[facility] Tltjpgbmkv94[address] [place] [address]Dr. Emelina Navarro Globulin (S) [Mass/Vol] 4.1 g/dL Normal [facility] Comment on above: Performed By: #### B NURSES' ASSOCIATION EXECUTIVE DIRECTOR, CMP ####[facility] Btaoohbswb[address] [place] [address]Dr. Emelina Navarro Glucose [Mass/Vol] 120 mg/dL Critically high 74-106 T [facility] Comment on above: Performed By: #### B NURSES' ASSOCIATION EXECUTIVE DIRECTOR, CMP ####[facility] Zzutsbcvqd4[address] [place], [place] [address]Dr. Emelina Navarro Potassium [Moles/Vol] 4.1 mmol/L Normal 3.5-5.1 [facility] Comment on above: Performed By: #### B NURSES' ASSOCIATION EXECUTIVE DIRECTOR, CMP ####[facility] Ogujugiacl4235[address] [place], [place] [address]Dr. Emelina Navarro Protein [Mass/Vol] 7.5 g/dL Normal 6.4-8.2 [facility] Comment on above: Performed By: #### B NURSES' ASSOCIATION EXECUTIVE DIRECTOR, CMP ####[facility] Uvymfosjim4133[address] [place], [place] [address]Dr. Emelina Navarro Sodium [Moles/Vol] 138 mmol/L Normal 136-145 [facility] Comment on above: Performed By: #### B NURSES' ASSOCIATION EXECUTIVE DIRECTOR, CMP ####[facility] Unxubirfin13[address] [place], [place] [address]Dr. Emelina Navarro Urea nitrogen [Mass/Vol] 24.0 mg/dL Critically high 7.0-18.0 [facility] Comment on above: Performed By: #### B NURSES' ASSOCIATION EXECUTIVE DIRECTOR, CMP ####[facility] Czlmfnyrwg1927[address] [place], [place] [address]Dr. Emelina Navarro Urea nitrogen/Creatinine [Mass ratio] 13.7 mg/mg Normal [facility] Comment on above: Performed By: #### B NURSES' ASSOCIATION EXECUTIVE DIRECTOR, CMP ####[facility] Q[address]krvf[address] [place] [id number]. Emelina Navarro SPUTUM CULTUREon 05-11-2022 Epithelial cells LM Ql (Urine sed) Few Normal [facility] Comment on above: Performed By: #### C XSPTUM ####[facility] Xrmcjcwqhs8[address] [place] [id number]. Emelina Navarro Gram Stain Evaluation Comment Normal [facility] Comment on above: Result Comment: This specimen is of good quality and is acceptable for routinebacterial culture. Performed By: #### C XSPTUM ####[facility] Bwcl[address]gwjv[address] [place] [address]Dr. Emelina Navarro Lower Respiratory Culture Final report Normal [facility] Comment on above: Performed By: #### C XSPTUM ####[facility] Fljxyoafrr[address]23[address] [place], [place] [address]Dr. Emelina Navarro Result 1 Comment Normal [facility] Comment on above: Result Comment: Few gram positive cocci Performed By: #### C XSPTUM ####[facility] Kowcqhqwon13[address] [place], [place] [address]Dr. Emelina Navarro Result Comment: Rout ine respiratory cedric Result 2 Normal [facility] Comment on above: Performed By: #### C XSPTUM ####[facility] B[address]nuxagn[address] [place] [address]Dr. Emelina Navarro Result 3 Normal [facility] Comment on above: Performed By: #### C XSPTUM ####[facility] Uvrjtfghvl[address] [place], [place] [address]Dr. Emelina Navarro Result 4 Normal [facility] Comment on above: Performed By: #### C XSPTUM ####[facility] Oxzgiivzfz[address] [place], [place] [address]Dr. Emelina Navarro White Blood Cells Few Normal [facility] Comment on above: Performed By: #### C XSPTUM ####[facility] Okwlvbmkdl8934[address] [place], [place] [address]Dr. Emelina Navarro CBC W MANUAL DIFFon 05-10-20 22 ATYPICAL LYMPH # Normal [facility] Comment on above: Performed By: #### C BCADRIAN ####[facility] Fenrohaiig[address] [place] [id number]. Emelina Navarro ATYPICAL LYMPH % Normal [facility] Comment on above: Performed By: #### C BCADRIAN ####[facility] Efgbmjazso9[address] [place] [id number]. Yilan Navarro BAND # 0.5 103/ul Critically high 0.0-0.3 [facility] Comment on above: Performed By: #### C BCADRIAN ####[facility] Cckvjjjvsm34[address] [place] [id number]. Yilan Navarro BAND % 2 % Normal 0-5 [facility] Comment on above: Performed By: #### C PURVI ####[facility] P[address]zltzrtrg[address] [place] [address]Dr. Emelina Navarro BASOM # 0.00 103/ul Normal 0.00-0.10 [facility] Comment on above: Performed By: #### C PURVI ####[facility] J[address]rjjmnk[address] [place] [address]Dr. Emelina Navarro BASOM % 0.0 % Critically low 0.2-2.0 [facility] Comment on above: Performed By: #### C PURVI ####[facility] Olrdsdofye[address] [place] [id number]. Emelina Navarro BLAST # Normal [facility] Comment on above: Performed By: #### C PURVI ####[facility] C[address]zzswsrr[address] [place], [place] [address]Dr. Emelina Navarro BLAST % Normal [facility] Comment on above: Performed By: #### C PURVI ####[facility] [address] [place] [address]Dr. Emelina Navarro CORRECTED WBC Normal 4.0-11.0 [facility] Comment on above: Performed By: #### C PURVI ####[facility] Pmxzlmagrw35[address] [place] [id number]. Awildalan Navarro EOS # 0.24 103/ul Normal 0.00-0.70 [facility] Comment on above: Performed By: #### C PURVI ####[facility] Umcoqdechx26[address] [place], [place] [address]Zl. Emelina Navarro EOS% 1.0 % Normal 0.9-7.0 [facility] Comment on above: Performed By: #### C PURVI ####[facility] Thb[address]ujbiq84[address] [place], [place] [address]Tu. Emelina Navarro HCT 41.6 % Critically low 42.0-54.0 [facility] Comment on above: Performed By: #### C PURVI ####[facility] Rvnolyflmu7[address] [place], [place] [address]Iz. Emelina Navarro HGB 13.2 g/dl Critically low 14.0-18.0 [facility] Comment on above: Performed By: #### C PURVI ####[facility] Snrrnyuksp0716 [place], [place] [address]Ql. Emelina Navarro LYMPHM # 0.71 103/ul Critically low 1.20-3.80 [facility] Comment on above: Performed By: #### C PURVI ####[facility] O[address]trcvjx4[address] [place], [place] [address]Yz. Emelina Navarro LYMPHM% 3.0 % Critically low 20.5-60.0 [facility] Comment on above: Performed By: #### Poonam LOJA ####[facility] Axfotcgbgd9598 [place], [place] [address]Md. Emelina Navarro MCH 28.3 pg Normal 25.9-34.0 [facility] Comment on above: Performed By: #### C PURVI ####[facility] Sropbjjmfm1881 [place], [place] [address]Rb. Emelina Navarro MCHC 31.7 g/dl Normal 29.9-35.2 [facility] Comment on above: Performed By: #### C PURVI ####[facility] Ve[address]uyduyy6[address] [place], [place] [address]Qt. Emelina Navarro MCV 89.3 fL Normal 80.0-94.0 [facility] Comment on above: Performed By: #### Poonam LOJA ####[facility] Fnqpotddwz49[address] [place] [id number]. Emelina Navarro METAMYELOCYTE # Normal [facility] Comment on above: Performed By: #### C PURVI ####[facility] Nczisgdjzn28[address] [place] [phone]. Emelina Navarro METAMYELOCYTE % Normal [facility] Comment on above: Performed By: #### C PURVI ####[facility] Cqmyrabzug39[address] [place] [phone]. Emelina Navarro MONOM# 0.24 103/ul Critically low 0.30-0.80 [facility] Comment on above: Performed By: #### C PURVI ####[facility] Dukgnrjuhi[address] [place], [place] [address]Dr. Emelina Navarro MONOM% 1.0 % Critically low 1.7-12.0 [facility] Comment on above: Performed By: #### C PURVI ####[facility] Lxwiovadwy[address] [place], [place] [address]Dr. mEelina Navarro MPV 9.7 fL Normal 9.5-13.5 [facility] Comment on above: Performed By: #### C PURVI ####[facility] Hywvjzbyrv[address] [place], [place] [address]Dr. Emelina Navarro MYELOCYTE # Normal [facility] Comment on above: Performed By: #### C PURVI ####[facility] Ixheqfjncv9[address] [place] [phone]. Emelina Navarro MYELOCYTE % Normal [facility] Comment on above: Performed By: #### C PURVI ####[facility] Bfrfqopgfn0998 [place] [id number]. Emelina Navarro NRBC Normal [facility] Comment on above: Performed By: #### C PURVI ####[facility] Xlvjaiujzc[address] [place], [place] [address]Dr. Emelina Navarro PLT 192 103/ul Normal 150-450 [facility] Comment on above: Performed By: #### C PURVI ####[facility] Dzicazykca99[address] [place], [place] [address]Dr. Emelina Navarro RBC 4.66 106/ul Critically low 4.70-6.10 [facility] Comment on above: Performed By: #### C PURVI ####[facility] Jcyaqhjeqw24[address] [place] [id number]. Emelina Navarro RDW 16.1 % Critically high 11.0-15.0 [facility] Comment on above: Performed By: #### C PURVI ####[facility] Nxppygjeru350[address] [place] [address]Dr. Emelina Navarro SEG # 21.95 103/ul Critically high 1.40-6.50 [facility] Comment on above: Performed By: #### C PURVI ####[facility] Fguorbwfsm4688 [place] [address]Dr. Emelina Navarro SEG % 93.0 % Critically high 43.0-75.0 [facility] Comment on above: Performed By: #### C PURVI ####[facility] Cyiycypmxz8[address] [place] [address]Dr. Emelina Navarro WBC 23.6 103/ul Critically high 4.0-11.0 [facility] Comment on above: Performed By: #### C PURVI ####[facility] Mnvhriwbfx32[address] [place] [address]Dr. Emelina Navarro CRPon 05-10-2022 CRP 2.3 mg/dL Critically high <=1.0 [facility] Comment on above: Performed By: #### C MP, HSTROPN, CRP ####[facility] Yb[address]uzbcxx[address] [place] [address]Dr. Emelina Navarro DIGOXINon 05-10-2022 DIG 0.6 ng/mL Critically low 0.9-2.0 [facility] Comment on above: Performed By: #### D IG ####[facility] Gimjhefonk[address] [place] [address]Dr. Emelina Navarro POINT OF CARE GLUCOSEon 04-20 Glucose [Mass/Vol] 246 mg/dL Critically high 74-106 [facility] Comment on above: Performed By: #### P OCGLUC ####[facility] M[address]civoole[address] [place] [address]Dr. Emelina Navarro PROF 14(COMP METB)on 022 Albumin [Mass/Vol] 3.0 g/dL Critically low 3.4-5.0 [facility] Comment on above: Performed By: #### C MP, HSTROPN, CRP ####[facility] Dkdbefijap29[address] [place] [address]Dr. Emelina Navarro Albumin/Globulin [Mass ratio] 0.7 {ratio} Normal [facility] Comment on above: Performed By: #### C MP, HSTROPN, CRP ####[facility] Lzhyscmxhq44[address] [place] [address]Dr. Emelina Navarro ALP [Catalytic activity/Vol] 95 U/L Normal 46-116 [facility] Comment on above: Performed By: #### C MP, HSTROPN, CRP ####[facility] Fuvkfgmpem7474 [place] [address]Dr. Emelina Navarro ALT [Catalytic activity/Vol] 75 U/L Critically high 16-63 [facility] Comment on above: Performed By: #### C MP, HSTROPN, CRP ####[facility] Quhzfcdjfg8743 [place] [address]Dr. Emelina Navarro Anion gap [Moles/Vol] 11.1 mmol/L Normal [facility] Comment on above: Performed By: #### C MP, HSTROPN, CRP ####[facility] Ytpmbhdcsi1706 [place] [address]Dr. Emelina Navarro AST [Catalytic activity/Vol] 25 U/L Normal 15-37 [facility] Comment on above: Performed By: #### C MP, HSTROPN, CRP ####[facility] Iphwnlozoj0276 [place] [address]Dr. Emelina Navarro Bilirubin [Mass/Vol] 0.4 mg/dL Normal 0.2-1.0 [facility] Comment on above: Performed By: #### C MP, HSTROPN, CRP ####[facility] Ecwpndjsln16[address] [place] [address]Dr. Emelina Navarro Calcium [Mass/Vol] 8.3 mg/dL Critically low 8.5-10.1 Th e [facility] Comment on above: Performed By: #### C MP, HSTROPN, CRP ####[facility] Lrowlybybx95[address] [place] [address]Dr. Emelina Navarro Chloride [Moles/Vol] 100 mmol/L Normal 98-107 [facility] Comment on above: Performed By: #### C MP, HSTROPN, CRP ####[facility] Uzawbnrrgt9476 [place] [address]Dr. Emelina Navarro CO2 [Moles/Vol] 28.6 mmol/L Normal 21.0-32.0 [facility] Comment on above: Performed By: #### C MP, HSTROPN, CRP ####[facility] Xvtrbhuzts[address] [place], [place] [address]Dr. Emelina Navarro Creatinine [Mass/Vol] 1.58 mg/dL Critically high 0.70-1.30 [facility] Comment on above: Performed By: #### C MP, HSTROPN, CRP ####[facility] Dekehrwqvc[address] [place], [place] [address]Dr. Emelina Navarro EGFR-AF [place] 53 mL/min/1.73m2 Critically low >=60 [facility] Comment on above: Performed By: #### C MP, HSTROPN, CRP ####[facility] Foamvjefxx8[address] [place], [place] [address]Dr. Emelina Navarro EGFR-NON AF [place] 44 mL/min/1.73m2 Critically low >=60 [facility] Comment on above: Performed By: #### C MP, HSTROPN, CRP ####[facility] Wudrwhippa[address] [place], [place] [address]Dr. Emelina Navarro Globulin (S) [Mass/Vol] 4.2 g/dL Normal [facility] Comment on above: Performed By: #### C MP, HSTROPN, CRP ####[facility] Avcmelibbg5584[address] [place], [place] [address]Dr. Emelina Navarro Glucose [Mass/Vol] 230 mg/dL Critically high 74-106 T [facility] Comment on above: Performed By: #### C MP, HSTROPN, CRP ####[facility] Ekxmlalywh2481 [place] [address]Dr. Emelina Navarro Potassium [Moles/Vol] 4.7 mmol/L Normal 3.5-5.1 [facility] Comment on above: Performed By: #### C MP, HSTROPN, CRP ####[facility] Nzsijclphz8219 [place] [address]Dr. Emelina Navarro Protein [Mass/Vol] 7.2 g/dL Normal 6.4-8.2 [facility] Comment on above: Performed By: #### C MP, HSTROPN, CRP ####[facility] Efnvkazfrs5324[address] [place], [place] [address]Dr. Awildanitza Navarro Sodium [Moles/Vol] 135 mmol/L Critically low 136-145 Th [facility] Comment on above: Performed By: #### C MP, HSTROPN, CRP ####[facility] Ylyzqrrmvb[address] [place], [place] [address]Dr. Awildanitza Navarro Urea nitrogen [Mass/Vol] 45.0 mg/dL Critically high 7.0-18.0 [facility] Comment on above: Performed By: #### C MP, HSTROPN, CRP ####[facility] Libzyyforc20[address] [place] [address]Dr. Awildanitza Ramon Urea nitrogen/Creatinine [Mass ratio] 28.5 mg/mg Normal [facility] Comment on above: Performed By: #### C MP, HSTROPN, CRP ####[facility] Sllwnwgoze9426[address] [place], [place] [address]Dr. Emelina Navarro PROTIMEon 05-10-2022 INR Coag (PPP) [Relative time] 2.93 {INR} Normal [facility] Comment on above: Performed By: #### P T ####[facility] Kzlozeqtgd[address] [place], [place] [address]Dr. Emelina Navarro INR GUIDELINES SEE BELOW Normal [facility] Comment on above: Result Comment: WENDY RED INR: 2.0 - 3.0 CONDITIONS NOT LISTED BELOW 2.5 - 3.5 FOR PROSTHETIC HEART VALVE REPLACEMENT 2.5 - 3.5 RECURRENT THROMBOSIS Performed By: #### P T ####[facility] Pkccmrpltq3853 [place] [address]Dr. Emelina Navarro PT Coag (PPP) [Time] 29.5 s Critically high 9.0-11.6 [facility] Comment on above: Performed By: #### P T ####[facility] Mdxslzzisa0812 [place] [address]Dr. Emelina Navarro TROPONIN, HIGH SENSITIVITYon 05-10-2022 HSTROP 38.3 pg/mL Normal 4.0-76.1 [facility] Comment on above: Result Comment: CUT- OFF POINTS HAVE BEEN ESTABLISHED BASED ON THE FOURTH UNIVERSAL DEFINITIONS OF MYOCARDIALINFARCTION. THE UPPER REFERENCE LIMIT (URL) OF TROPONIN, DEFINED THE 99TH PERCENTILE OFcTnI DISTRIBUTION IN A REFERENCE POPULATION, HAS BEEN CONFIRMED THE DECISION THRESHOLDFOR VT DIAGNOSIS. Performed By: #### C MP, HSTROPN, CRP ####[facility] Yonffsyilg[address] [place], [place] [address]Dr. Emelina Navarro CBC AUTO DIFFon 05-09-2022 BASO # 0.0 103/ul Normal 0.0-0.1 [facility] Comment on above: Performed By: #### C BC ####[facility] Idgtxbanzf0114[address] [place], [place] [address]DrWesley Navarro Basophils/100 WBC (Bld) 0.1 % Critically low 0.2-2.0 [facility] Comment on above: Performed By: #### C BC ####[facility] Zguvisfhyb6192[address] [place], [place] [address]DrWesley Navarro EO # 0.0 103/ul Normal 0.0-0.7 [facility] Comment on above: Performed By: #### C BC ####[facility] Chdvgzhdke7440[address] [place], [place] [address]DrWesley Navarro Eosinophils/100 WBC (Bld) 0.0 % Critically low 0.9-7.0 [facility] Comment on above: Performed By: #### C BC ####[facility] Cjkjtdwojz6402 [place] [address]Dr. Emelina Navarro Erythrocyte distribution width (RBC) [Ratio] 15.9 % Critically high 11.0-15.0 [facility] Comment on above: Performed By: #### C BC ####[facility] Sejhnxpben5514[address] [place], [place] [address]DrWesley Navarro Hematocrit (Bld) [Volume fraction] 42.7 % Normal 42.0-54.0 [facility] Comment on above: Performed By: #### C BC ####[facility] Avzyfpmcpl[address] [place], [place] [address]DrWesley Navarro Hemoglobin (Bld) [Mass/Vol] 13.5 g/dL Critically low 14.0-18.0 [facility] Comment on above: Performed By: #### C BC ####[facility] Cenvrwsakv87[address] [place], [place] [address]DrWesley Navarro IG # 0.14 10e3/ul Critically high 0.00-0.03 [facility] Comment on above: Performed By: #### C BC ####[facility] Pzoxedwvhr[address] [place], [place] [address]DrWesley Navarro IG % 0.8 % Critically high 0.0-0.5 [facility] Comment on above: Performed By: #### C BC ####[facility] Tjxblquism6552[address] [place], [place] [address]DrWesley Navarro LYMPH # 1.1 103/ul Critically low 1.2-3.8 [facility] Comment on above: Performed By: #### C BC ####[facility] Rjnvdugmqo95[address] [place], [place] [address]DrWesley Navarro Lymphocytes/100 WBC (Bld) 6.2 % Critically low 20.5-60.0 [facility] Comment on above: Performed By: #### C BC ####[facility] Eyzaxbpmgi80[address] [place], [place] [address]DrWesley Navarro MANUAL DIFF REQ NO Normal [facility] Comment on above: Performed By: #### C BC ####[facility] Rrghkrrukk7424 [place] [id number] Navarro MCH (RBC) [Entitic mass] 28.5 pg Normal 25.9-34.0 [facility] Comment on above: Performed By: #### C BC ####[facility] Bhbxyzgipm4582 [place] [address]DrWesley Navarro MCHC (RBC) [Mass/Vol] 31.6 g/dL Normal 29.9-35.2 [facility] Comment on above: Performed By: #### C BC ####[facility] Wtrgzaatde6340 [place] [address]DrWesley Navarro MCV (RBC) [Entitic vol] 90.3 fL Normal 80.0-94.0 [facility] Comment on above: Performed By: #### C BC ####[facility] [address]afswgwztx[address] [place], [place] [address]DrWesley Navarro MONO # 0.4 103/ul Normal 0.3-0.8 [facility] Comment on above: Performed By: #### C BC ####[facility] Bgjpgbe[address] [place], [place] [address]DrWesley Navarro Monocytes/100 WBC (Bld) 2.1 % Normal 1.7-12.0 [facility] Comment on above: Performed By: #### C BC ####[facility] Ikfapadogh[address] [place], [place] [address]DrWesley Navarro NEUT # 16.2 103/ul Critically high 1.4-6.5 The [facility] Comment on above: Performed By: #### C BC ####[facility] Xetffsyfhz[address] [place], [place] [address]DrWesley Navarro Neutrophils/100 WBC (Bld) 90.8 % Critically high 43.0-75.0 [facility] Comment on above: Performed By: #### C BC ####[facility] Euwfpbcpuh[address] [place], [place] [address]DrWesley Navarro Platelet mean volume (Bld) [Entitic vol] 10.2 fL Normal 9.5-13.5 [facility] Comment on above: Performed By: #### C BC ####[facility] Falykmwncq[address] [place] [address]Dr. Emelina Navarro PLT 215 103/ul Normal 150-450 [facility] Comment on above: Performed By: #### C BC ####[facility] Jtjkyaajzk9825 [place] [address]Dr. Emelina Navarro RBC 4.73 106/ul Normal 4.70-6.10 [facility] Comment on above: Performed By: #### C BC ####[facility] Skgqditcrr5232 [place] [address]Dr. Emelina Navarro WBC 17.8 103/ul Critically high 4.0-11.0 The [facility] Comment on above: Performed By: #### C BC ####[facility] Gjvznafmqz33[address] [place], [place] [address]Dr. Emelina Navarro CRPon 05-09-2022 CRP 4.4 mg/dL Critically high <=1.0 [facility] Comment on above: Performed By: #### C MP, HSTROPN, CRP ####[facility] Ykvwioxzen22[address] [place], [place] [address]Dr. Emelina Navarro DIGOXINon 05-09-2022 DIG 1.3 ng/mL Normal 0.9-2.0 [facility] Comment on above: Performed By: #### D IG ####[facility] Fxwyfsokxu60[address] [place], [place] [address]Dr. Emelina Navarro POINT OF CARE GLUCOSEon 04-20 Glucose [Mass/Vol] 319 mg/dL Critically high 74-106 [facility] Comment on above: Performed By: #### P OCGLUC ####[facility] Nvjeozvalu[address] [place], [place] [address]Dr. Emelina Navarro Glucose [Mass/Vol] 259 mg/dL Critically high 74-106 [facility] Comment on above: Performed By: #### P OCGLUC ####[facility] Lwmpugyxix1742 [place] [address]Dr. Emelina Navarro Glucose [Mass/Vol] 564 mg/dL Critically high 74-106 [facility] Comment on above: Result Comment: NURS E NOTIFIED Performed By: #### P OCGLUC ####[facility] Wuxeccobbo9138 [place] [address]Dr. Emelina Navarro PROF 14(COMP METB)on 022 Albumin [Mass/Vol] 3.1 g/dL Critically low 3.4-5.0 [facility] Comment on above: Performed By: #### C MP, HSTROPN, CRP ####[facility] Yuotbftzfm[address] [place] [address]Dr. Emelina Navarro Albumin/Globulin [Mass ratio] 0.7 {ratio} Normal [facility] Comment on above: Performed By: #### C MP, HSTROPN, CRP ####[facility] Srmvfymcgw[address] [place], [place] [address]Dr. Emelina Navarro ALP [Catalytic activity/Vol] 102 U/L Normal 46-116 [facility] Comment on above: Performed By: #### C MP, HSTROPN, CRP ####[facility] Uhjwooqlsy43[address] [place], [place] [address]Dr. Emelina Navarro ALT [Catalytic activity/Vol] 81 U/L Critically high 16-63 [facility] Comment on above: Performed By: #### C MP, HSTROPN, CRP ####[facility] Bobgmvrpwc6812 [place] [address]Dr. Emelina Navarro Anion gap [Moles/Vol] 12.3 mmol/L Normal [facility] Comment on above: Performed By: #### C MP, HSTROPN, CRP ####[facility] Dlopsleypu3962[address] [place], [place] [address]Dr. Emelina Navarro AST [Catalytic activity/Vol] 22 U/L Normal 15-37 [facility] Comment on above: Performed By: #### C MP, HSTROPN, CRP ####[facility] Dmakomvufb4847 [place] [address]Dr. Emelina Navarro Bilirubin [Mass/Vol] 0.6 mg/dL Normal 0.2-1.0 [facility] Comment on above: Performed By: #### C MP, HSTROPN, CRP ####[facility] Nyhutrtvhd5665 [place] [address]Dr. Emelina Navarro Calcium [Mass/Vol] 8.6 mg/dL Normal 8.5-10.1 [facility] Comment on above: Performed By: #### C MP, HSTROPN, CRP ####[facility] Tlcecoxirc0359 [place] [address]Dr. Emelina Navarro Chloride [Moles/Vol] 100 mmol/L Normal 98-107 [facility] Comment on above: Performed By: #### C MP, HSTROPN, CRP ####[facility] Jqtavxmogc2432[address] [place], [place] [address]Dr. Emelina Navarro CO2 [Moles/Vol] 28.4 mmol/L Normal 21.0-32.0 The [facility] Comment on above: Performed By: #### C MP, HSTROPN, CRP ####[facility] Omgwitbeau8962[address] [place], [place] [address]Dr. Emelina Navarro Creatinine [Mass/Vol] 1.91 mg/dL Critically high 0.70-1.30 [facility] Comment on above: Performed By: #### C MP, HSTROPN, CRP ####[facility] Ykkafshoxv9533[address] [place], [place] [address]Dr. Emelina Navarro EGFR-AF [place] 43 mL/min/1.73m2 Critically low >=60 [facility] Comment on above: Performed By: #### C MP, HSTROPN, CRP ####[facility] Flahviljsf6867[address] [place], [place] [address]Dr. Emelina Navarro EGFR-NON AF [place] 35 mL/min/1.73m2 Critically low >=60 [facility] Comment on above: Performed By: #### C MP, HSTROPN, CRP ####[facility] Avtvxotnke27[address] [place], [place] [address]Dr. Emelina Navarro Globulin (S) [Mass/Vol] 4.6 g/dL Normal [facility] Comment on above: Performed By: #### C MP, HSTROPN, CRP ####[facility] Wlvxzfoxck0954 [place] [address]Dr. Emelina Navarro Glucose [Mass/Vol] 242 mg/dL Critically high 74-106 [facility] Comment on above: Performed By: #### C MP, HSTROPN, CRP ####[facility] Tzniwzozlg4335 [place] [address]Dr. Emelina Navarro Potassium [Moles/Vol] 4.7 mmol/L Normal 3.5-5.1 [facility] Comment on above: Performed By: #### C MP, HSTROPN, CRP ####[facility] Ifbosfoseh5307 [place] [address]Dr. Emelina Navarro Protein [Mass/Vol] 7.7 g/dL Normal 6.4-8.2 [facility] Comment on above: Performed By: #### C MP, HSTROPN, CRP ####[facility] Eodogyyzor2350[address] [place], [place] [address]Dr. Emelina Navarro Sodium [Moles/Vol] 136 mmol/L Normal 136-145 [facility] Comment on above: Performed By: #### C MP, HSTROPN, CRP ####[facility] Baklcuhicz8057[address] [place], [place] [address]Dr. Emelina Navarro Urea nitrogen [Mass/Vol] 48.0 mg/dL Critically high 7.0-18.0 [facility] Comment on above: Performed By: #### C MP, HSTROPN, CRP ####[facility] Snjhoihvmz4236[address] [place], [place] [address]Dr. Emelina Navarro Urea nitrogen/Creatinine [Mass ratio] 25.1 mg/mg Normal [facility] Comment on above: Performed By: #### C MP, HSTROPN, CRP ####[facility] Cyppjqodrb3514[address] [place], [place] [address]Dr. Emelina Navarro PROTIMEon 05-09-2022 INR Coag (PPP) [Relative time] 2.59 {INR} Normal [facility] Comment on above: Performed By: #### P T ####[facility] Fxhtbjcmbv8464 [place] [address]DrWesley Navarro INR GUIDELINES SEE BELOW Normal [facility] Comment on above: Result Comment: WENDY RED INR: 2.0 - 3.0 CONDITIONS NOT LISTED BELOW 2.5 - 3.5 FOR PROSTHETIC HEART VALVE REPLACEMENT 2.5 - 3.5 RECURRENT THROMBOSIS Performed By: #### P T ####[facility] Hnfaiwvcns3469 [place] [address]DrWesley Navarro PT Coag (PPP) [Time] 26.3 s Critically high 9.0-11.6 [facility] Comment on above: Performed By: #### P T ####[facility] Bmwgrkqogd3937[address] [place], [place] [address]Dr. Emelina Navarro TROPONIN, HIGH SENSITIVITYon 05-09-2022 HSTROP 45.4 pg/mL Normal 4.0-76.1 [facility] Comment on above: Result Comment: CUT- OFF POINTS HAVE BEEN ESTABLISHED BASED ON THE FOURTH UNIVERSAL DEFINITIONS OF MYOCARDIALINFARCTION. THE UPPER REFERENCE LIMIT (URL) OF TROPONIN, DEFINED THE 99TH PERCENTILE OFcTnI DISTRIBUTION IN A REFERENCE POPULATION, HAS BEEN CONFIRMED THE DECISION THRESHOLDFOR VT DIAGNOSIS. Performed By: #### C MP, HSTROPN, CRP ####[facility] Wfrnkymana[address] [place], [place] [address]Dr. Emelina Navarro XR FOOT RT MIN 3 VIEWSon XR FOOT RT MIN 3 VIEWS Normal [facility] CARDIAC IMTIAZ 3-6on 2 CK [Catalytic activity/Vol] 34 U/L Critically low 39-308 [facility] Comment on above: Performed By: #### C MREP ####[facility] Wwhbbnsntr[address] [place], [place] [address]DrWesley Navarro CK.MB [Mass/Vol] 3.37 ng/mL Normal <=3.60 [facility] Comment on above: Performed By: #### C MREP ####[facility] Lfzofdymwt17[address] [place], [place] [address]DrWesley Navarro HSTROP 53.5 pg/mL Normal 4.0-76.1 [facility] Comment on above: Result Comment: CUT- OFF POINTS HAVE BEEN ESTABLISHED BASED ON THE FOURTH UNIVERSAL DEFINITIONS OF MYOCARDIALINFARCTION. THE UPPER REFERENCE LIMIT (URL) OF TROPONIN, DEFINED THE 99TH PERCENTILE OFcTnI DISTRIBUTION IN A REFERENCE POPULATION, HAS BEEN CONFIRMED THE DECISION THRESHOLDFOR VT DIAGNOSIS. Performed By: #### C MREP ####[facility] Txcyyzbuzm[address] [place] [address]Dr. Emelina Navarro CK [Catalytic activity/Vol] 39 U/L Normal 39-308 [facility] Comment on above: Performed By: #### C MREP ####[facility] Ijjnwzproa5110 [place] [address]Dr. Emelina Navarro CK.MB [Mass/Vol] 2.74 ng/mL Normal <=3.60 [facility] Comment on above: Performed By: #### C MREP ####[facility] Yavexmfqvg9240 [place] [address]Dr. Emelina Navarro HSTROP 68.7 pg/mL Normal 4.0-76.1 [facility] Comment on above: Result Comment: CUT- OFF POINTS HAVE BEEN ESTABLISHED BASED ON THE FOURTH UNIVERSAL DEFINITIONS OF MYOCARDIALINFARCTION. THE UPPER REFERENCE LIMIT (URL) OF TROPONIN, DEFINED THE 99TH PERCENTILE OFcTnI DISTRIBUTION IN A REFERENCE POPULATION, HAS BEEN CONFIRMED THE DECISION THRESHOLDFOR VT DIAGNOSIS. Performed By: #### C MREP ####[facility] V[address]tpkabn[address] [place] [address]Dr. Emelina Navarro CARDIAC IMTIAZ ADMITon 022 CK [Catalytic activity/Vol] 30 U/L Critically low 39-308 [facility] Comment on above: Performed By: #### SHIVAM Mcgee MP ####[facility] Xnnbrxfapv5916 [place] [address]Dr. Emelina Navarro CK.MB [Mass/Vol] 2.88 ng/mL Normal <=3.60 [facility] Comment on above: Performed By: #### SHIVAM Mcgee MP ####[facility] Lqgrlvswsj05[address] [place], [place] [address]Dr. Emelina Navarro HSTROP 69.9 pg/mL Normal 4.0-76.1 [facility] Comment on above: Result Comment: CUT- OFF POINTS HAVE BEEN ESTABLISHED BASED ON THE FOURTH UNIVERSAL DEFINITIONS OF MYOCARDIALINFARCTION. THE UPPER REFERENCE LIMIT (URL) OF TROPONIN, DEFINED THE 99TH PERCENTILE OFcTnI DISTRIBUTION IN A REFERENCE POPULATION, HAS BEEN CONFIRMED THE DECISION THRESHOLDFOR VT DIAGNOSIS. Performed By: #### B SHIVAM PRAJAPATI ####[facility] Diwdtlnngq9230 [place] [address]Dr. Emelina Ramon URBANO 79 ng/mL Normal 16-96 [facility] Comment on above: Performed By: #### B SHIVAM PRAJAPATI ####[facility] Rvtpjegsgc04[address] [place], [place] [address]Dr. Emelina Ramon CBC AUTO DIFFon 05-08-2022 BASO # 0.0 103/ul Normal 0.0-0.1 [facility] Comment on above: Performed By: #### C BC ####[facility] Yaaicbonuu[address] [place], [place] [address]Dr. Emelina Navarro Basophils/100 WBC (Bld) 0.2 % Normal 0.2-2.0 [facility] Comment on above: Performed By: #### C BC ####[facility] Fxuxwhkmyx6[address] [place], [place] [address]Dr. Emelina Navarro EO # 0.2 103/ul Normal 0.0-0.7 [facility] Comment on above: Performed By: #### C BC ####[facility] Agatwysizn9[address] [place], [place] [address]Dr. Emelina Ramon Eosinophils/100 WBC (Bld) 1.3 % Normal 0.9-7.0 [facility] Comment on above: Performed By: #### C BC ####[facility] Uqgfshnlrq6733[address] [place], [place] [address]Dr. Emelina Navarro Erythrocyte distribution width (RBC) [Ratio] 16.2 % Critically high 11.0-15.0 [facility] Comment on above: Performed By: #### C BC ####[facility] Surffhmmup5157 [place] [address]Dr. Emelina Navarro Hematocrit (Bld) [Volume fraction] 43.8 % Normal 42.0-54.0 [facility] Comment on above: Performed By: #### C BC ####[facility] Gxtkflogsc0181 [place] [address]Dr. Emelina Ramon Hemoglobin (Bld) [Mass/Vol] 13.9 g/dL Critically low 14.0-18.0 [facility] Comment on above: Performed By: #### C BC ####[facility] Lgwvynbgpc4155 [place] [address]Dr. Emelina Navarro IG # 0.17 10e3/ul Critically high 0.00-0.03 [facility] Comment on above: Performed By: #### C BC ####[facility] Rifyrrgkag8767 [place] [address]Dr. Emelina Navarro IG % 1.0 % Critically high 0.0-0.5 [facility] Comment on above: Performed By: #### C BC ####[facility] Grajlpbard1586 [place] [address]Dr. Emelina Navarro LYMPH # 1.1 103/ul Critically low 1.2-3.8 [facility] Comment on above: Performed By: #### C BC ####[facility] Aghgvasrqx2561 [place] [address]Dr. Emelina Navarro Lymphocytes/100 WBC (Bld) 6.5 % Critically low 20.5-60.0 [facility] Comment on above: Performed By: #### C BC ####[facility] Potcgcyeek9930 [place] [address]Dr. Emelina Navarro MANUAL DIFF REQ NO Normal [facility] Comment on above: Performed By: #### C BC ####[facility] Epspyxvrrm50[address] [place], [place] [address]Dr. Emelina Navarro MCH (RBC) [Entitic mass] 28.8 pg Normal 25.9-34.0 [facility] Comment on above: Performed By: #### C BC ####[facility] Wiapwncahm1423 [place] [address]Dr. Emelina Navarro MCHC (RBC) [Mass/Vol] 31.7 g/dL Normal 29.9-35.2 [facility] Comment on above: Performed By: #### C BC ####[facility] Nsbcehujcr1866 [place] [address]Dr. Emelina Navarro MCV (RBC) [Entitic vol] 90.9 fL Normal 80.0-94.0 [facility] Comment on above: Performed By: #### C BC ####[facility] Jlbvwzexyk0613 [place] [address]Dr. Emelina Navarro MONO # 1.4 103/ul Critically high 0.3-0.8 [facility] Comment on above: Performed By: #### C BC ####[facility] Coyzczslhk3065 [place] [address]Dr. Awildanitza Navarro Monocytes/100 WBC (Bld) 8.5 % Normal 1.7-12.0 [facility] Comment on above: Performed By: #### C BC ####[facility] Jelizceweu7298 [place] [address]Dr. Emelina Navarro NEUT # 13.9 103/ul Critically high 1.4-6.5 [facility] Comment on above: Performed By: #### C BC ####[facility] Bfhyhpoglw4401 [place] [address]Dr. Emelina Ramon Neutrophils/100 WBC (Bld) 82.5 % Critically high 43.0-75.0 [facility] Comment on above: Performed By: #### C BC ####[facility] Zfgdcnlnha6937 [place] [id number]. Emelina Navarro Platelet mean volume (Bld) [Entitic vol] 9.8 fL Normal 9.5-13.5 [facility] Comment on above: Performed By: #### C BC ####[facility] Whdwdinhkr2594 [place] [id number]. Emelina Ramon PLT 214 103/ul Normal 150-450 [facility] Comment on above: Performed By: #### C BC ####[facility] Jtvibecowo9420 [place], [place] [address]Jt. Emelina Navarro RBC 4.82 106/ul Normal 4.70-6.10 [facility] Comment on above: Performed By: #### C BC ####[facility] Lxybdlpxlf8174 [place], [place] [address]Ys. Emelina Navarro WBC 16.8 103/ul Critically high 4.0-11.0 [facility] Comment on above: Performed By: #### C BC ####[facility] Trlbylmpts9580 [place], [place] [address]Xz. Emelina Navarro CRPon 05-08-2022 CRP 2.5 mg/dL Critically high <=1.0 [facility] Comment on above: Performed By: #### C RP ####[facility] Ymocufpzet7776 [place], [place] [address]Rk. Emelina Navarro Covid-19 PCR (CVDTBH)on 04-20 SARS-CoV-2 (COVID-19) RNA RADHA+probe Ql (Unsp spec) Detected Critically abnormal NOT DETECTED [facility] Comment on above: Result Comment: This test is not yet approved or cleared by the [place] FDA. When there are no FDA-approved or cleared tests available, and other criteria are met, FDA can make tests available under an emergency access mechanism called an Emergency Use Authorization (EUA). The EUA for this test is supported by the [employer] of Health and Human Service's declaration [...] be used). Performed By: #### C VDTBH ####[facility] Qxyzyncwap1908 [place], [place] [address]Il. Emelina Navarro DIGOXINon 05-08-2022 DIG 0.9 ng/mL Normal 0.9-2.0 [facility] Comment on above: Performed By: #### D IG ####[facility] Mwsdfomkfu8024 [place] [address]Dr. Emelina Navarro LACTATE/LACTIC ACIDon 2021 Lactate [Moles/Vol] 1.6 mmol/L Normal 0.4-1.9 [facility] Comment on above: Performed By: #### L ACT ####[facility] Jekjkyiaes3668 [place] [address]Dr. Emelina Navarro Lactate [Moles/Vol] 1.3 mmol/L Normal 0.4-1.9 [facility] Comment on above: Performed By: #### L ACT ####[facility] Cmifymiyev87[address] [place], [place] [address]Dr. Awildanitza Ramon POINT OF CARE GLUCOSEon 04-20 Glucose [Mass/Vol] 244 mg/dL Critically high [address] [place] [address] Comment on above: Performed By: #### P OCGLUC ####[facility] Bpndrvmlrs[address] [place], [place] [address]Dr. Emelina Navarro Glucose [Mass/Vol] 405 mg/dL Critically high [address] [place] [address] Comment on above: Performed By: #### P OCGLUC ####[facility] Ygbonhxynx2693[address] [place], [place] [address]Dr. Emelina Navarro Glucose [Mass/Vol] 352 mg/dL Critically high [address] [place] [address] Comment on above: Performed By: #### P OCGLUC ####[facility] Nfzkubyvbp3755[address] [place], [place] [address]Dr. Awildanitza Navarro Glucose [Mass/Vol] 285 mg/dL Critically high [address] [place] [address] Comment on above: Performed By: #### P OCGLUC ####[facility] Jznuylsplq3064[address] [place], [place] [address]Dr. Emelina Navarro PROF CHEM 8 (BAS METB)on Anion gap [Moles/Vol] 13.7 mmol/L Normal [facility] Comment on above: Performed By: #### B MP ####[facility] Cyygljvxjh3594[address] [place], [place] [address]Dr. Emelina Navarro Calcium [Mass/Vol] 8.4 mg/dL Critically low 8.5-10.1 [facility] Comment on above: Performed By: #### B MP ####[facility] Wsumblkbrv101[address] [place], [place] [address]Dr. Emelina Navarro Chloride [Moles/Vol] 93 mmol/L Critically low 98-107 [facility] Comment on above: Performed By: #### B MP ####[facility] Zdqfaftfod0886[address] [place], [place] [address]Dr. Emelina Navarro CO2 [Moles/Vol] 26.4 mmol/L Normal 21.0-32.0 [facility] Comment on above: Performed By: #### B MP ####[facility] Loszkwmcho2318[address] [place], [place] [address]Dr. Emelina Navarro Creatinine [Mass/Vol] 2.23 mg/dL Critically high 0.70-1.30 [facility] Comment on above: Performed By: #### B MP ####[facility] Rknvarzgzq4140[address] [place], [place] [address]Dr. Emelina Navarro EGFR-AF [place] 36 mL/min/1.73m2 Critically low >=60 [facility] Comment on above: Performed By: #### B MP ####[facility] Aisuqmbyox4826[address] [place], [place] [address]Dr. Emelina Navarro EGFR-NON AF [place] 30 mL/min/1.73m2 Critically low >=60 [facility] Comment on above: Performed By: #### B MP ####[facility] Mccwnssxvj[address] [place], [place] [address]Dr. Emelina Navarro Glucose [Mass/Vol] 451 mg/dL Critically high 74-106 T [facility] Comment on above: Performed By: #### B MP ####[facility] Dahvlsyzbe3158[address] [place], [place] [address]Dr. Emelina Navarro Potassium [Moles/Vol] 5.1 mmol/L Normal 3.5-5.1 [facility] Comment on above: Performed By: #### B MP ####[facility] Ojzounddnz2358[address] [place], [place] [address]Dr. Emeilna Navarro Sodium [Moles/Vol] 128 mmol/L Critically low 136-145 [facility] Comment on above: Performed By: #### B VICTORINA ####[facility] Nrkjjshumz5585 [place] [address]Dr. Awildanitza Ramon Urea nitrogen [Mass/Vol] 40.0 mg/dL Critically high 7.0-18.0 [facility] Comment on above: Performed By: #### B VICTORINA ####[facility] Fbogcvpcvg[address] [place], [place] [address]Dr. Emelina Navarro Urea nitrogen/Creatinine [Mass ratio] 17.9 mg/mg Normal [facility] Comment on above: Performed By: #### B VICTORINA ####[facility] Upgxfdflag6525[address] [place], [place] [address]Dr. Awildanitza Ramon Anion gap [Moles/Vol] 13.7 mmol/L Normal [facility] Comment on above: Performed By: #### B SHIVAM PRAJAPATI ####[facility] Ffvlbtlmkt[address] [place], [place] [address]Dr. Emelina Navarro Calcium [Mass/Vol] 8.5 mg/dL Normal 8.5-10.1 [facility] Comment on above: Performed By: #### B SHIVAM PRAJAPATI ####[facility] Ltttmczflg85[address] [place], [place] [address]Dr. Emelina Navarro Chloride [Moles/Vol] 98 mmol/L Normal 98-107 [facility] Comment on above: Performed By: #### B SHIVAM PRAJAPATI ####[facility] Elgtyrjpkl03[address] [place], [place] [address]Dr. Emelina Navarro CO2 [Moles/Vol] 25.0 mmol/L Normal 21.0-32.0 [facility] Comment on above: Performed By: #### SHIVAM Mcgee MP ####[facility] Jsfoniaiua9[address] [place], [place] [address]Dr. Emelina Navarro Creatinine [Mass/Vol] 1.97 mg/dL Critically high 0.70-1.30 [facility] Comment on above: Performed By: #### B SHIVAM PRAJAPATI ####[facility] Pdqnxvqowm[address] [place], [place] [address]Dr. Emelina Navarro EGFR-AF [place] 41 mL/min/1.73m2 Critically low >=60 [facility] Comment on above: Performed By: #### B VICTORINA, SHIVAM ####[facility] Vzrywqgvoo23[address] [place] [address]Dr. Emelina Navarro EGFR-NON AF [place] 34 mL/min/1.73m2 Critically low >=60 [facility] Comment on above: Performed By: #### B VICTORINA, SHIVAM ####[facility] Ddclqivhae0893 [place] [address]Dr. Awildanitza Navarro Glucose [Mass/Vol] 239 mg/dL Critically high 74-106 T [facility] Comment on above: Performed By: #### B VICTORINA, SHIVAM ####[facility] Yikpuzjtbn3989 [place] [address]Dr. Emelina Navarro Potassium [Moles/Vol] 5.7 mmol/L Critically high 3.5-5.1 [facility] Comment on above: Performed By: #### B VICTORINA, SHIVAM ####[facility] [address] [place] [address]Dr. Awildanitza Ramon Sodium [Moles/Vol] 131 mmol/L Critically low 136-145 Th [facility] Comment on above: Performed By: #### B VICTORINA, SHIVAM ####[facility] Aiimsntyng62[address] [place] [address]Dr. Emelina Navarro Urea nitrogen [Mass/Vol] 37.0 mg/dL Critically high 7.0-18.0 [facility] Comment on above: Performed By: #### B VICTORINA, SHIVAM ####[facility] Zepwxfywrr[address] [place] [address]Dr. Emelina Navarro Urea nitrogen/Creatinine [Mass ratio] 18.8 mg/mg Normal [facility] Comment on above: Performed By: #### B VICTORINA, SHIVAM ####[facility] Szyokpafpl[address] [place] [address]Dr. Emelina Navarro PROTIMEon 05-08-2022 INR Coag (PPP) [Relative time] 2.28 {INR} Normal [facility] Comment on above: Performed By: #### P T ####[facility] Zcikggahnb4[address] [place] [address]DrWesley Navarro INR GUIDELINES SEE BELOW Normal [facility] Comment on above: Result Comment: WENDY RED INR: 2.0 - 3.0 CONDITIONS NOT LISTED BELOW 2.5 - 3.5 FOR PROSTHETIC HEART VALVE REPLACEMENT 2.5 - 3.5 RECURRENT THROMBOSIS Performed By: #### P T ####[facility] Lvzwlftmod[address] [place], [place] [address]Dr. Emelina Navarro PT Coag (PPP) [Time] 23.3 s Critically high 9.0-11.6 [facility] Comment on above: Performed By: #### P T ####[facility] Sxmbzqaurx[address] [place], [place] [address]DrWesley Navarro US FERNY DOP LEG LTon 05-08-20 US FERNY DOP LEG LT Normal [facility] XR CHEST 1 Von 05-08-2022 XR CHEST 1 V Normal [facility] CBC AUTO DIFFon 05-02-2022 BASO # 0.0 103/ul Normal 0.0-0.1 [facility] Comment on above: Performed By: #### C BC ####[facility] Ivdbnxltiz4987[address] [place], [place] [address]DrWesley Navarro Basophils/100 WBC (Bld) 0.2 % Normal 0.2-2.0 [facility] Comment on above: Performed By: #### C BC ####[facility] Pvmjrccmpm99[address] [place], [place] [address]DrWesley Navarro EO # 0.0 103/ul Normal 0.0-0.7 [facility] Comment on above: Performed By: #### C BC ####[facility] Zupctadjjm13[address] [place], [place] [address]DrWesley Navarro Eosinophils/100 WBC (Bld) 0.2 % Critically low 0.9-7.0 [facility] Comment on above: Performed By: #### C BC ####[facility] Jimmlrucnp5498[address] [place], [place] [address]DrWesley Navarro Erythrocyte distribution width (RBC) [Ratio] 16.5 % Critically high 11.0-15.0 [facility] Comment on above: Performed By: #### C BC ####[facility] Riksvrpymr2[address] [place] [address]Dr. Emelina Navarro Hematocrit (Bld) [Volume fraction] 42.0 % Normal 42.0-54.0 [facility] Comment on above: Performed By: #### C BC ####[facility] Geyrookhcs65[address] [place], [place] [address]Dr. Emelina Ramon Hemoglobin (Bld) [Mass/Vol] 13.3 g/dL Critically low 14.0-18.0 [facility] Comment on above: Performed By: #### C BC ####[facility] Tyxsaevyzl220[address] [place], [place] [address]Dr. Emelina Navarro IG # 0.14 10e3/ul Critically high 0.00-0.03 [facility] Comment on above: Performed By: #### C BC ####[facility] Epsjsnhgig6953[address] [place], [place] [address]Dr. Awildanitza Navarro IG % 1.1 % Critically high 0.0-0.5 [facility] Comment on above: Performed By: #### C BC ####[facility] Djzclohzoo3032[address] [place], [place] [address]DrWesley Emelina Ramon LYMPH # 1.3 103/ul Normal 1.2-3.8 [facility] Comment on above: Performed By: #### C BC ####[facility] Vambxtswma[address] [place], [place] [address]DrWesley Awildanitza Navarro Lymphocytes/100 WBC (Bld) 9.8 % Critically low 20.5-60.0 [facility] Comment on above: Performed By: #### C BC ####[facility] Fiyfujwqwv8[address] [place], [place] [address]DrWesley Awildanitza Navarro MANUAL DIFF REQ NO Normal [facility] Comment on above: Performed By: #### C BC ####[facility] Wjlbhvkqeh66[address] [place], [place] [address]DrWesley Navarro MCH (RBC) [Entitic mass] 28.9 pg Normal 25.9-34.0 [facility] Comment on above: Performed By: #### C BC ####[facility] Hxhgiynifb40[address] [place] [address]Dr. Emelina Ramon MCHC (RBC) [Mass/Vol] 31.7 g/dL Normal 29.9-35.2 [facility] Comment on above: Performed By: #### C BC ####[facility] Eqrdsffmrs2338[address] [place], [place] [address]Dr. Emelina Navarro MCV (RBC) [Entitic vol] 91.1 fL Normal 80.0-94.0 [facility] Comment on above: Performed By: #### C BC ####[facility] Ujyxoxpgmf1701[address] [place], [place] [address]Dr. Emelina Navarro MONO # 1.2 103/ul Critically high 0.3-0.8 [facility] Comment on above: Performed By: #### C BC ####[facility] Rlpuyxhgjn1648[address] [place], [place] [address]Dr. Emelina Navarro Monocytes/100 WBC (Bld) 9.6 % Normal 1.7-12.0 [facility] Comment on above: Performed By: #### C BC ####[facility] Gzsapfttzz38[address] [place], [place] [address]DrWesley Navarro NEUT # 10.1 103/ul Critically high 1.4-6.5 The [facility] Comment on above: Performed By: #### C BC ####[facility] Bvgbadwlvb7285[address] [place], [place] [address]Dr. Emelina Navarro Neutrophils/100 WBC (Bld) 79.1 % Critically high 43.0-75.0 [facility] Comment on above: Performed By: #### C BC ####[facility] Khjflsncqp7808[address] [place], [place] [address]Dr. Emelina Navarro Platelet mean volume (Bld) [Entitic vol] 10.0 fL Normal 9.5-13.5 [facility] Comment on above: Performed By: #### C BC ####[facility] [address]hpqjv35[address] [place] [id number]. Emelina Navarro PLT 188 103/ul Normal 150-450 [facility] Comment on above: Performed By: #### C BC ####[facility] Jiwhucaqjj9303 [place] [address]Dr. Emelina Navarro RBC 4.61 106/ul Critically low 4.70-6.10 [facility] Comment on above: Performed By: #### C BC ####[facility] Irumwcloxs88[address] [place] [id number]. Emelina Navarro WBC 12.8 103/ul Critically high 4.0-11.0 The [facility] Comment on above: Performed By: #### C BC ####[facility] Zitqioougp25[address] [place] [address]Dr. Emelina Navarro NM HEPATOBILIARY SCAN W EFon 05-02-2022 NM HEPATOBILIARY SCAN W EF Normal [facility] PROF 14(COMP METB)on 022 Albumin [Mass/Vol] 2.7 g/dL Critically low 3.4-5.0 [facility] Comment on above: Performed By: #### C MP ####[facility] Luokphnpgn7[address] [place], [place] [address]Dr. Emelina Navarro Albumin/Globulin [Mass ratio] 0.7 {ratio} Normal [facility] Comment on above: Performed By: #### C MP ####[facility] Ucqdmbkawc26[address] [place] [address]Dr. Emelina Navarro ALP [Catalytic activity/Vol] 65 U/L Normal 46-116 [facility] Comment on above: Performed By: #### C MP ####[facility] Putyhmgmzc17[address] [place] [address]Dr. Emelina Navarro ALT [Catalytic activity/Vol] 406 U/L Critically high 16-63 [facility] Comment on above: Performed By: #### C MP ####[facility] Fuscjdzwdr17[address] [place] [address]Dr. Emelina Navarro Anion gap [Moles/Vol] 8.1 mmol/L Normal [facility] Comment on above: Performed By: #### C MP ####[facility] Mqxlzecjra3131 [place] [address]Dr. Emelina Navarro AST [Catalytic activity/Vol] 101 U/L Critically high 15-37 The [facility] Comment on above: Performed By: #### C MP ####[facility] Fxadnblyop9948 [place] [id number]. Emelina Navarro Bilirubin [Mass/Vol] 0.6 mg/dL Normal 0.2-1.0 [facility] Comment on above: Performed By: #### C MP ####[facility] Udwcarcmuq75[address] [place] [id number]. Emelina Navarro Calcium [Mass/Vol] 7.7 mg/dL Critically low 8.5-10.1 Th e [facility] Comment on above: Performed By: #### C MP ####[facility] Cszcvafyco74[address] [place], [place] [address]Dr. Emelina Navarro Chloride [Moles/Vol] 104 mmol/L Normal 98-107 [facility] Comment on above: Performed By: #### C MP ####[facility] Bhejgnxpwk[address] [place], [place] [address]Dr. Emelina Navarro CO2 [Moles/Vol] 30.9 mmol/L Normal 21.0-32.0 [facility] Comment on above: Performed By: #### C MP ####[facility] Srhhgjptdx76[address] [place], [place] [address]Dr. Emelina Navarro Creatinine [Mass/Vol] 1.54 mg/dL Critically high 0.70-1.30 [facility] Comment on above: Performed By: #### C MP ####[facility] Lyrjgvuwww7[address] [place] [id number]. Emelina Navarro EGFR-AF [place] 55 mL/min/1.73m2 Critically low >=60 [facility] Comment on above: Performed By: #### C MP ####[facility] Bjsberwmft107[address] [place], [place] [address]Dr. Emelina Navarro EGFR-NON AF [place] 45 mL/min/1.73m2 Critically low >=60 [facility] Comment on above: Performed By: #### C MP ####[facility] Armtffjpto035[address] [place] [address]Dr. Emelina Navarro Globulin (S) [Mass/Vol] 3.8 g/dL Normal [facility] Comment on above: Performed By: #### C MP ####[facility] Hbpoymqybx22[address] [place] [address]Dr. Emelina Navarro Glucose [Mass/Vol] 177 mg/dL Critically high 74-106 [facility] Comment on above: Performed By: #### C MP ####[facility] Eectednprb246[address] [place], [place] [address]Dr. Emelina Navarro Potassium [Moles/Vol] 4.0 mmol/L Normal 3.5-5.1 [facility] Comment on above: Performed By: #### C MP ####[facility] Uipzxjcdhd892[address] [place], [place] [address]Dr. Emelina Navarro Protein [Mass/Vol] 6.5 g/dL Normal 6.4-8.2 [facility] Comment on above: Performed By: #### C MP ####[facility] Aoaidosdjw3193[address] [place], [place] [address]Dr. Emelina Navarro Sodium [Moles/Vol] 139 mmol/L Normal 136-145 [facility] Comment on above: Performed By: #### C MP ####[facility] Hcyslcrfyu2867[address] [place], [place] [address]Dr. Emelina Navarro Urea nitrogen [Mass/Vol] 38.0 mg/dL Critically high 7.0-18.0 [facility] Comment on above: Performed By: #### C MP ####[facility] Lezvflguxi9456[address] [place], [place] [address]Dr. Emelina Navarro Urea nitrogen/Creatinine [Mass ratio] 24.7 mg/mg Normal [facility] Comment on above: Performed By: #### C MP ####[facility] Xfwthlvqoo9613[address] [place], [place] [address]Dr. Emelina Ramon PROTIMEon 05-02-2022 INR Coag (PPP) [Relative time] 2.57 {INR} Normal [facility] Comment on above: Performed By: #### P T ####[facility] D[address]ictldfj[address] [place] [address]Dr. Emelina Navarro INR GUIDELINES SEE BELOW Normal [facility] Comment on above: Result Comment: WENDY RED INR: 2.0 - 3.0 CONDITIONS NOT LISTED BELOW 2.5 - 3.5 FOR PROSTHETIC HEART VALVE REPLACEMENT 2.5 - 3.5 RECURRENT THROMBOSIS Performed By: #### P T ####[facility] Bdohtnrepc0[address] [place], [place] [address]Dr. Emelina Navarro PT Coag (PPP) [Time] 26.1 s Critically high 9.0-11.6 [facility] Comment on above: Performed By: #### P T ####[facility] Vuzvliwffp[address] [place], [place] [address]Dr. Emelina Navarro CBC AUTO DIFFon 05-01-2022 BASO # 0.0 103/ul Normal 0.0-0.1 [facility] Comment on above: Performed By: #### C BC ####[facility] Mrdaydwfzz3566[address] [place], [place] [address]Dr. Emelina Navarro Basophils/100 WBC (Bld) 0.1 % Critically low 0.2-2.0 [facility] Comment on above: Performed By: #### C BC ####[facility] Bnuiwnmbsw[address] [place], [place] [address]Dr. Emelina Navarro EO # 0.0 103/ul Normal 0.0-0.7 [facility] Comment on above: Performed By: #### C BC ####[facility] Cpkdhijbth5277[address] [place], [place] [address]Dr. Emelina Navarro Eosinophils/100 WBC (Bld) 0.0 % Critically low 0.9-7.0 [facility] Comment on above: Performed By: #### C BC ####[facility] Baffukudli380[address] [place], [place] [address]Dr. Emelina Navarro Erythrocyte distribution width (RBC) [Ratio] 16.5 % Critically high 11.0-15.0 [facility] Comment on above: Performed By: #### C BC ####[facility] Gsvqiaqvfx3[address] [place] [address]Dr. Awildanitza Navarro Hematocrit (Bld) [Volume fraction] 41.5 % Critically low 42.0-54.0 [facility] Comment on above: Performed By: #### C BC ####[facility] Dptzjtrsdr9083 [place] [address]Dr. Emelina Navarro Hemoglobin (Bld) [Mass/Vol] 13.5 g/dL Critically low 14.0-18.0 [facility] Comment on above: Performed By: #### C BC ####[facility] Rltzgmuchj5685 [place] [address]Dr. Emelina Navarro IG # 0.12 10e3/ul Critically high 0.00-0.03 [facility] Comment on above: Performed By: #### C BC ####[facility] Maypxhlwiu4867 [place] [address]Dr. Emelina Navarro IG % 0.7 % Critically high 0.0-0.5 [facility] Comment on above: Performed By: #### C BC ####[facility] Gkxnslccek0346 [place] [address]Dr. Emelina Navarro LYMPH # 0.8 103/ul Critically low 1.2-3.8 [facility] Comment on above: Performed By: #### C BC ####[facility] Qdpakoilrs3541 [place] [address]Dr. Emelina Navarro Lymphocytes/100 WBC (Bld) 4.7 % Critically low 20.5-60.0 [facility] Comment on above: Performed By: #### C BC ####[facility] Mwiyepafgs[address] [place] [address]Dr. Emelina Navarro MANUAL DIFF REQ NO Normal [facility] Comment on above: Performed By: #### C BC ####[facility] Afvxcbatfk328[address] [place], [place] [address]Dr. Emelina Navarro MCH (RBC) [Entitic mass] 28.9 pg Normal 25.9-34.0 [facility] Comment on above: Performed By: #### C BC ####[facility] Drinfzeqsq0061 [place] [id number]. Emelina Navarro MCHC (RBC) [Mass/Vol] 32.5 g/dL Normal 29.9-35.2 [facility] Comment on above: Performed By: #### C BC ####[facility] Gbbobhqjiq2467 [place] [id number]. Emelina Ramon MCV (RBC) [Entitic vol] 88.9 fL Normal 80.0-94.0 [facility] Comment on above: Performed By: #### C BC ####[facility] Fiuhjfoxyu725[address] [place], [place] [address]Dr. Emelina Ramon MONO # 1.0 103/ul Critically high 0.3-0.8 [facility] Comment on above: Performed By: #### C BC ####[facility] Olegryukxg48[address] [place], [place] [address]Dr. Emelina Navarro Monocytes/100 WBC (Bld) 6.5 % Normal 1.7-12.0 [facility] Comment on above: Performed By: #### C BC ####[facility] Uobupdadar144[address] [place], [place] [address]Dr. Awildanitza Navarro NEUT # 14.1 103/ul Critically high 1.4-6.5 The [facility] Comment on above: Performed By: #### C BC ####[facility] Ngjcddicao899[address] [place], [place] [address]Dr. Emelina Navarro Neutrophils/100 WBC (Bld) 88.0 % Critically high 43.0-75.0 [facility] Comment on above: Performed By: #### C BC ####[facility] Jgalbhpnyw[address] [place], [place] [address]Dr. Emelina Navarro Platelet mean volume (Bld) [Entitic vol] 9.9 fL Normal 9.5-13.5 [facility] Comment on above: Performed By: #### C BC ####[facility] Bbcjqlfufe35[address] [place], [place] [address]Dr. Emelina Navarro PLT 185 103/ul Normal 150-450 [facility] Comment on above: Performed By: #### C BC ####[facility] Tbmptnzvbk9071 [place] [id number]. Emelina Navarro RBC 4.67 106/ul Critically low 4.70-6.10 [facility] Comment on above: Performed By: #### C BC ####[facility] Eqioqkxgym5251 [place] [address]Dr. Emelina Navarro WBC 16.1 103/ul Critically high 4.0-11.0 The [facility] Comment on above: Performed By: #### C BC ####[facility] Lsdkyvzfxb9117 [place] [address]Dr. Emelina Navarro LIVER PROFILEon 05-01-2022 Albumin/Globulin [Mass ratio] 0.7 {ratio} Normal [facility] Comment on above: Performed By: #### L IVER ####[facility] Inigiafjlb026[address] [place] [address]Dr. Emelina Navarro ALP [Catalytic activity/Vol] 71 U/L Normal 46-116 [facility] Comment on above: Performed By: #### L IVER ####[facility] Nelrplpnob26[address] [place] [address]Dr. Emelina Navarro ALT [Catalytic activity/Vol] 558 U/L Critically high 16-63 [facility] Comment on above: Performed By: #### L IVER ####[facility] Fthxtcxemx3920 [place] [address]Dr. Emelina Navarro AST [Catalytic activity/Vol] 220 U/L Critically high 15-37 [facility] Comment on above: Performed By: #### L IVER ####[facility] Vwlijoefjz6450 [place] [address]Dr. Emelina Ramon BILI, CONJUGATED 0.2 mg/dL Normal 0.0-0.2 The [facility] Comment on above: Performed By: #### L IVER ####[facility] Sgcfdwspyx1790 [place] [address]Dr. Emelina Navarro Bilirubin [Mass/Vol] 0.5 mg/dL Normal 0.2-1.0 [facility] Comment on above: Performed By: #### L IVER ####[facility] Otkwuzazkl99[address] [place] [address]Dr. Emelina Navarro Globulin (S) [Mass/Vol] 3.9 g/dL Normal [facility] Comment on above: Performed By: #### L IVER ####[facility] Vntgaztgxf0585 [place] [address]Dr. Emelina Navarro Protein [Mass/Vol] 6.8 g/dL Normal 6.4-8.2 [facility] Comment on above: Performed By: #### L IVER ####[facility] Chufvvmyri4[address] [place] [address]Dr. Emelina Navarro POINT OF CARE GLUCOSEon 04-19 Glucose [Mass/Vol] 205 mg/dL Critically high 74-106 [facility] Comment on above: Performed By: #### P OCGLUC ####[facility] Qupxblrkhf[address] [place], [place] [address]Dr. Emelina Navarro PROF 14(COMP METB)on 022 Albumin [Mass/Vol] 2.9 g/dL Critically low 3.4-5.0 [facility] Comment on above: Performed By: #### C MP ####[facility] Nnvdgqfxfi[address] [place], [place] [address]Dr. Emelina Navarro Performed By: #### L IVER ####[facility] Ptpmjdepfu8813 [place] [address]Dr. Emelina Navarro Albumin/Globulin [Mass ratio] 0.8 {ratio} Normal [facility] Comment on above: Performed By: #### C MP ####[facility] Jdptfqewab3833 [place] [address]Dr. Emelina Navarro ALP [Catalytic activity/Vol] 70 U/L Normal 46-116 [facility] Comment on above: Performed By: #### C MP ####[facility] Luhpyzjbvv97[address] [place] [address]Dr. Emelina Navarro ALT [Catalytic activity/Vol] 552 U/L Critically high 16-63 [facility] Comment on above: Performed By: #### C MP ####[facility] Qpborvquaz3794 [place], [place] [address]Dv. Emelina Navarro Anion gap [Moles/Vol] 14.2 mmol/L Normal [facility] Comment on above: Performed By: #### C MP ####[facility] Exgxnndeno1673 [place] [address]Dr. Emelina Navarro AST [Catalytic activity/Vol] 214 U/L Critically high 15-37 [facility] Comment on above: Performed By: #### C MP ####[facility] Tsvspwydqt4644 [place] [address]Dr. Emelina Navarro Bilirubin [Mass/Vol] 0.6 mg/dL Normal 0.2-1.0 [facility] Comment on above: Performed By: #### C MP ####[facility] Tzqhmtayjg7331 [place] [address]Dr. Emelina Navarro Calcium [Mass/Vol] 7.9 mg/dL Critically low 8.5-10.1 [facility] Comment on above: Performed By: #### C MP ####[facility] Cjildhgwof2349 [place] [address]Dr. Emelina Navarro Chloride [Moles/Vol] 103 mmol/L Normal 98-107 [facility] Comment on above: Performed By: #### C MP ####[facility] Dxyoblwfiv8607 [place] [address]Dr. Emelina Navarro CO2 [Moles/Vol] 25.0 mmol/L Normal 21.0-32.0 The [facility] Comment on above: Performed By: #### C MP ####[facility] Jwyttcujxo5692 [place] [address]Dr. Emelina Navarro Creatinine [Mass/Vol] 1.58 mg/dL Critically high 0.70-1.30 [facility] Comment on above: Performed By: #### C MP ####[facility] Fdxquqrdvy7802 [place] [address]Dr. Emelina Navarro EGFR-AF [place] 53 mL/min/1.73m2 Critically low >=60 [facility] Comment on above: Performed By: #### C MP ####[facility] Sszntxgvkh3283 [place], [place] [address]Sl. Emelina Navarro EGFR-NON AF [place] 44 mL/min/1.73m2 Critically low >=60 [facility] Comment on above: Performed By: #### C MP ####[facility] Vzhvfndjme1451 [place], [place] [address]Oa. Emelina Navarro Globulin (S) [Mass/Vol] 3.8 g/dL Normal [facility] Comment on above: Performed By: #### C MP ####[facility] Qzzbeptvwa8832 [place] [address]Dr. Emelina Navarro Glucose [Mass/Vol] 267 mg/dL Critically high 74-106 [facility] Comment on above: Performed By: #### C MP ####[facility] Aakoomafiq8106 [place] [address]Dr. Emelina Navarro Potassium [Moles/Vol] 3.2 mmol/L Critically low 3.5-5.1 [facility] Comment on above: Performed By: #### C MP ####[facility] Szreobfloi7108 [place] [address]Dr. Emelina Navarro Protein [Mass/Vol] 6.7 g/dL Normal 6.4-8.2 [facility] Comment on above: Performed By: #### C MP ####[facility] Qkfpzvxmrs1288 [place] [address]Dr. Emelina Navarro Sodium [Moles/Vol] 139 mmol/L Normal 136-145 [facility] Comment on above: Performed By: #### C MP ####[facility] Eqjkiapqkg6500 [place] [address]Dr. Emelina Navarro Urea nitrogen [Mass/Vol] 43.0 mg/dL Critically high 7.0-18.0 [facility] Comment on above: Performed By: #### C MP ####[facility] Yzmxdsjhjz5264 [place] [id number]. Emelina Navarro Urea nitrogen/Creatinine [Mass ratio] 27.2 mg/mg Normal [facility] Comment on above: Performed By: #### C MP ####[facility] Ppzpaaliyt2372 [place] [address]DrWesley Emelina Ramon PROTIMEon 05-01-2022 INR Coag (PPP) [Relative time] 2.57 {INR} Normal [facility] Comment on above: Performed By: #### P T ####[facility] [address]vjfustv[address] [place], [place] [address]DrWesley Navarro INR GUIDELINES SEE BELOW Normal [facility] Comment on above: Result Comment: WENDY RED INR: 2.0 - 3.0 CONDITIONS NOT LISTED BELOW 2.5 - 3.5 FOR PROSTHETIC HEART VALVE REPLACEMENT 2.5 - 3.5 RECURRENT THROMBOSIS Performed By: #### P T ####[facility] [address]qnbqqvam[address] [place], [place] [address]DrWesley Navarro PT Coag (PPP) [Time] 26.1 s Critically high 9.0-11.6 [facility] Comment on above: Performed By: #### P T ####[facility] Wholslslbm[address] [place], [place] [address]DrWesley Navarro CBC AUTO DIFFon 04-30-2022 BASO # 0.0 103/ul Normal 0.0-0.1 [facility] Comment on above: Performed By: #### C BC ####[facility] Llwvelccek[address] [place], [place] [address]DrWesley Navarro Basophils/100 WBC (Bld) 0.1 % Critically low 0.2-2.0 [facility] Comment on above: Performed By: #### C BC ####[facility] Djvivzgpue2825[address] [place], [place] [address]DrWesley Navarro EO # 0.0 103/ul Normal 0.0-0.7 [facility] Comment on above: Performed By: #### C BC ####[facility] Brlovayfrg[address] [place], [place] [address]DrWesley Navarro Eosinophils/100 WBC (Bld) 0.0 % Critically low 0.9-7.0 [facility] Comment on above: Performed By: #### C BC ####[facility] Gyjwkbizsx07[address] [place], [place] [address]Dr. Emelina Navarro Erythrocyte distribution width (RBC) [Ratio] 16.4 % Critically high 11.0-15.0 [facility] Comment on above: Performed By: #### C BC ####[facility] [address] [place] [address]Dr. Emelina Navarro Hematocrit (Bld) [Volume fraction] 40.9 % Critically low 42.0-54.0 [facility] Comment on above: Performed By: #### C BC ####[facility] Jtfinedykt[address] [place] [address]Dr. Emelina Navarro Hemoglobin (Bld) [Mass/Vol] 13.3 g/dL Critically low 14.0-18.0 [facility] Comment on above: Performed By: #### C BC ####[facility] Wotdjiegqt[address] [place] [address]Dr. Emelina Ramon IG # 0.11 10e3/ul Critically high 0.00-0.03 [facility] Comment on above: Performed By: #### C BC ####[facility] Xvlmxtaxnp[address] [place], [place] [address]Dr. Emelina Ramon IG % 0.5 % Normal 0.0-0.5 [facility] Comment on above: Performed By: #### C BC ####[facility] Azrolhwzfp2934[address] [place], [place] [address]Dr. Emelina Ramon LYMPH # 0.8 103/ul Critically low 1.2-3.8 [facility] Comment on above: Performed By: #### C BC ####[facility] Hiquzeyrbt10[address] [place], [place] [address]Dr. Awildanitza Navarro Lymphocytes/100 WBC (Bld) 3.9 % Critically low 20.5-60.0 [facility] Comment on above: Performed By: #### C BC ####[facility] Dnreesiwws1807[address] [place], [place] [address]Dr. Awildanitza Navarro MANUAL DIFF REQ NO Normal [facility] Comment on above: Performed By: #### C BC ####[facility] Mlspcprsbn3723[address] [place], [place] [address]Dr. Emelina Navarro MCH (RBC) [Entitic mass] 29.0 pg Normal 25.9-34.0 [facility] Comment on above: Performed By: #### C BC ####[facility] Qrveyaxscv9[address] [place] [address]Dr. Emelina Navarro MCHC (RBC) [Mass/Vol] 32.5 g/dL Normal 29.9-35.2 [facility] Comment on above: Performed By: #### C BC ####[facility] Oijhuf[address]js[address] [place] [id number]. Emelina Navarro MCV (RBC) [Entitic vol] 89.1 fL Normal 80.0-94.0 [facility] Comment on above: Performed By: #### C BC ####[facility] Blpxolfqkd11[address] [place] [address]Dr. Emelina Navarro MONO # 0.9 103/ul Critically high 0.3-0.8 [facility] Comment on above: Performed By: #### C BC ####[facility] Moovrukzqp2876[address] [place], [place] [address]Dr. Emelina Rmaon Monocytes/100 WBC (Bld) 4.2 % Normal 1.7-12.0 [facility] Comment on above: Performed By: #### C BC ####[facility] Oqdjbeoheo3[address] [place], [place] [address]Dr. Emelina Navarro NEUT # 18.5 103/ul Critically high 1.4-6.5 The [facility] Comment on above: Performed By: #### C BC ####[facility] Uysgwiilyv[address] [place], [place] [address]Dr. Emelina Ramon Neutrophils/100 WBC (Bld) 91.3 % Critically high 43.0-75.0 [facility] Comment on above: Performed By: #### C BC ####[facility] Djfjgvwkin0106[address] [place], [place] [address]Dr. Emelina Ramon Platelet mean volume (Bld) [Entitic vol] 10.9 fL Normal 9.5-13.5 [facility] Comment on above: Performed By: #### C BC ####[facility] Rnjwliioiz5098 [place] [id number]. Emelina Navarro PLT 162 103/ul Normal 150-450 [facility] Comment on above: Performed By: #### C BC ####[facility] Sskkcgpmbw8[address] [place] [address]Dr. Emelina Navarro RBC 4.59 106/ul Critically low 4.70-6.10 [facility] Comment on above: Performed By: #### C BC ####[facility] Tphjefdvyh04[address] [place] [address]Dr. Emelina Navarro WBC 20.3 103/ul Critically high 4.0-11.0 [facility] Comment on above: Performed By: #### C BC ####[facility] Smtidultof356[address] [place], [place] [address]Dr. Emelina Navarro PROF 14(COMP METB)on 022 Albumin [Mass/Vol] 2.8 g/dL Critically low 3.4-5.0 [facility] Comment on above: Performed By: #### C MP ####[facility] Idxzpepxyb299[address] [place], [place] [address]Dr. Emelina Navarro Albumin/Globulin [Mass ratio] 0.7 {ratio} Normal [facility] Comment on above: Performed By: #### C MP ####[facility] Ixselwpbnl9258[address] [place], [place] [address]Dr. Emelina Navarro ALP [Catalytic activity/Vol] 65 U/L Normal 46-116 [facility] Comment on above: Performed By: #### C MP ####[facility] Dvrobjrfgy4348[address] [place], [place] [address]Dr. Emelina Navarro ALT [Catalytic activity/Vol] 467 U/L Critically high 16-63 [facility] Comment on above: Performed By: #### C MP ####[facility] Hzmfhwyqpk8760[address] [place], [place] [address]Dr. Emelina Navarro Anion gap [Moles/Vol] 15.3 mmol/L Normal [facility] Comment on above: Performed By: #### C MP ####[facility] Fddelhpgie77[address] [place] [id number]. Emelina Navarro AST [Catalytic activity/Vol] 239 U/L Critically high 15-37 [facility] Comment on above: Performed By: #### C MP ####[facility] Zsrtcodblp4[address] [place] [id number]. Emelina Navarro Bilirubin [Mass/Vol] 0.7 mg/dL Normal 0.2-1.0 [facility] Comment on above: Performed By: #### C MP ####[facility] Zriwiohhtw35[address] [place] [address]Dr. Emelina Navarro Calcium [Mass/Vol] 7.9 mg/dL Critically low 8.5-10.1 Th [facility] Comment on above: Performed By: #### C MP ####[facility] Jtkxqifyri0938[address] [place], [place] [address]Dr. Emelina Navarro Chloride [Moles/Vol] 106 mmol/L Normal 98-107 [facility] Comment on above: Performed By: #### C MP ####[facility] Cqtyeembba69[address] [place], [place] [address]Dr. Emelina Navarro CO2 [Moles/Vol] 23.3 mmol/L Normal 21.0-32.0 The [facility] Comment on above: Performed By: #### C MP ####[facility] Luwruoqgmk7606 [place] [id number]. Emelina Navarro Creatinine [Mass/Vol] 1.71 mg/dL Critically high 0.70-1.30 [facility] Comment on above: Performed By: #### C MP ####[facility] Xgmkbpbevj4908 [place] [id number]. Emelina Navarro EGFR-AF [place] 49 mL/min/1.73m2 Critically low >=60 [facility] Comment on above: Performed By: #### C MP ####[facility] Ijuophbjbx8284 [place] [id number]. Emelina Navarro EGFR-NON AF [place] 40 mL/min/1.73m2 Critically low >=60 [facility] Comment on above: Performed By: #### C MP ####[facility] Nisymtcxlj1693 [place] [id number]. Emelina Navarro Globulin (S) [Mass/Vol] 3.9 g/dL Normal [facility] Comment on above: Performed By: #### C MP ####[facility] Eejgwcvrlr49[address] [place] [address]Dr. Emelina Navarro Glucose [Mass/Vol] 233 mg/dL Critically high 74-106 T [facility] Comment on above: Performed By: #### C MP ####[facility] Dnpyhgjqyh89[address] [place] [address]Dr. Emelina Navarro Potassium [Moles/Vol] 3.6 mmol/L Normal 3.5-5.1 [facility] Comment on above: Performed By: #### C MP ####[facility] Lrunudsiza0216 [place] [address]Dr. Emelina Navarro Protein [Mass/Vol] 6.7 g/dL Normal 6.4-8.2 [facility] Comment on above: Performed By: #### C MP ####[facility] Qlpiulevlo5974[address] [place], [place] [address]Dr. Emelina Navarro Sodium [Moles/Vol] 141 mmol/L Normal 136-145 [facility] Comment on above: Performed By: #### C MP ####[facility] Esywuylitj[address] [place], [place] [address]Dr. Emelina Navarro Urea nitrogen [Mass/Vol] 46.0 mg/dL Critically high 7.0-18.0 [facility] Comment on above: Performed By: #### C MP ####[facility] Srbhthuzpw6746 [place] [address]Dr. Emelina Navarro Urea nitrogen/Creatinine [Mass ratio] 26.9 mg/mg Normal [facility] Comment on above: Performed By: #### C MP ####[facility] Txobkqjdlt919[address] [place], [place] [address]Dr. Emelina Navarro XR CHEST 2 Von 04-30-2022 XR CHEST 2 V Normal [facility] CBC AUTO DIFFon 04-29-2022 BASO # 0.0 103/ul Normal 0.0-0.1 [facility] Comment on above: Performed By: #### C BC ####[facility] Tfaqdzuzvo60[address] [place] [address]Dr. Awildanitza Navarro Basophils/100 WBC (Bld) 0.1 % Critically low 0.2-2.0 [facility] Comment on above: Performed By: #### C BC ####[facility] Zcpollsgxl9[address] [place], [place] [address]DrWesley Navarro EO # 0.0 103/ul Normal 0.0-0.7 [facility] Comment on above: Performed By: #### C BC ####[facility] Saljtrnzme590799 [address] [place], [place] [address]Dr. Emelina Navarro Eosinophils/100 WBC (Bld) 0.0 % Critically low 0.9-7.0 [facility] Comment on above: Performed By: #### C BC ####[facility] Bevgmdwxlj4535[address] [place], [place] [address]Dr. Emelina Navarro Erythrocyte distribution width (RBC) [Ratio] 16.2 % Critically high 11.0-15.0 [facility] Comment on above: Performed By: #### C BC ####[facility] Krttjuiypq[address] [place], [place] [address]Dr. Emelina Navarro Hematocrit (Bld) [Volume fraction] 40.6 % Critically low 42.0-54.0 [facility] Comment on above: Performed By: #### C BC ####[facility] Sbmxivcyjp3832[address] [place], [place] [address]Dr. Emelina Navarro Hemoglobin (Bld) [Mass/Vol] 13.2 g/dL Critically low 14.0-18.0 [facility] Comment on above: Performed By: #### C BC ####[facility] Gfwujpsgbv628[address] [place], [place] [address]DrWesley Navarro IG # 0.11 10e3/ul Critically high 0.00-0.03 [facility] Comment on above: Performed By: #### C BC ####[facility] Upcixbsfzt2175[address] [place], [place] [address]Dr. Emelina Navarro IG % 0.6 % Critically high 0.0-0.5 [facility] Comment on above: Performed By: #### C BC ####[facility] Pklfjcnhft95[address] [place] [address]DrWesley Navarro LYMPH # 1.1 103/ul Critically low 1.2-3.8 [facility] Comment on above: Performed By: #### C BC ####[facility] Peipqukcwb3869 [place] [address]Dr. Emelina Navarro Lymphocytes/100 WBC (Bld) 5.6 % Critically low 20.5-60.0 [facility] Comment on above: Performed By: #### C BC ####[facility] Gfdyjimmjl2918[address] [place], [place] [address]Dr. Emelina Navarro MANUAL DIFF REQ NO Normal [facility] Comment on above: Performed By: #### C BC ####[facility] Tfcmqodbpx5795[address] [place], [place] [address]Dr. Emelina Navarro MCH (RBC) [Entitic mass] 29.1 pg Normal 25.9-34.0 [facility] Comment on above: Performed By: #### C BC ####[facility] Rxzldqzpaj593[address] [place], [place] [address]Dr. Emelina Navarro MCHC (RBC) [Mass/Vol] 32.5 g/dL Normal 29.9-35.2 [facility] Comment on above: Performed By: #### C BC ####[facility] Nlegklhzto1290[address] [place], [place] [address]Dr. Emelina Navarro MCV (RBC) [Entitic vol] 89.4 fL Normal 80.0-94.0 [facility] Comment on above: Performed By: #### C BC ####[facility] Oyseggcwte9133[address] [place], [place] [address]DrWesley Navarro MONO # 0.6 103/ul Normal 0.3-0.8 [facility] Comment on above: Performed By: #### C BC ####[facility] Fcmcutaqep7201[address] [place], [place] [address]Dr. Emelina Navarro Monocytes/100 WBC (Bld) 3.2 % Normal 1.7-12.0 [facility] Comment on above: Performed By: #### C BC ####[facility] Pscodggorw8[address] [place] [address]Dr. Emelina Navarro NEUT # 17.4 103/ul Critically high 1.4-6.5 [facility] Comment on above: Performed By: #### C BC ####[facility] Hsnxprmani79[address] [place] [address]Dr. Emelina Navarro Neutrophils/100 WBC (Bld) 90.5 % Critically high 43.0-75.0 [facility] Comment on above: Performed By: #### C BC ####[facility] Qbxhgcnrro3021 [place] [address]Dr. Emelina Navarro Platelet mean volume (Bld) [Entitic vol] 10.3 fL Normal 9.5-13.5 [facility] Comment on above: Performed By: #### C BC ####[facility] Bbamruehqn1425[address] [place], [place] [address]Dr. Emelina Navarro PLT 175 103/ul Normal 150-450 [facility] Comment on above: Performed By: #### C BC ####[facility] Cinxnujhhy9552[address] [place], [place] [address]Dr. Emelina Navarro RBC 4.54 106/ul Critically low 4.70-6.10 [facility] Comment on above: Performed By: #### C BC ####[facility] Wikznmzxat6665 [place] [id number]. Emelina Navarro WBC 19.2 103/ul Critically high 4.0-11.0 [facility] Comment on above: Performed By: #### C BC ####[facility] Nesdbxevmv5301[address] [place], [place] [address]Dr. Emelina Navarro Covid-19 PCR (CVDTB)on 04-19 SARS-CoV-2 (COVID-19) RNA RADHA+probe Ql (Unsp spec) Not detected Normal NOT DETECTED [facility] Comment on above: Result Comment: When [...] for this test is supported by the [place] of [employer] and Human Service's declaration that [...] be used). Performed By: #### C VDTB ####[facility] Reaxkxfxar2380[address] [place], [place] [address]Dr. Emelina Navarro LIPASEon 04-29-2022 Lipase [Catalytic activity/Vol] 74.0 U/L Normal 73.0-393.0 [facility] Comment on above: Performed By: #### L IPA ####[facility] Bdselhrxlv[address] [place], [place] [address]DrWesley Navarro PROF 14(COMP METB)on 022 Albumin [Mass/Vol] 2.8 g/dL Critically low 3.4-5.0 Th e [facility] Comment on above: Performed By: #### C MP ####[facility] Ekgbnmssrf4728[address] [place], [place] [address]DrWesley Navarro Albumin/Globulin [Mass ratio] 0.7 {ratio} Normal [facility] Comment on above: Performed By: #### C MP ####[facility] Xgwldpehuw2466[address] [place], [place] [address]DrWesley Navarro ALP [Catalytic activity/Vol] 70 U/L Normal 46-116 [facility] Comment on above: Performed By: #### C MP ####[facility] Mypcfzbjpl1322[address] [place], [place] [address]DrWesley Navarro ALT [Catalytic activity/Vol] 456 U/L Critically high 16-63 [facility] Comment on above: Performed By: #### C MP ####[facility] Qfrteoxvng6239 [place] [id number]. Emelina Navarro Anion gap [Moles/Vol] 14.7 mmol/L Normal [facility] Comment on above: Performed By: #### C MP ####[facility] Lyswuegmbm8459 [place] [id number]. Emelina Navarro AST [Catalytic activity/Vol] 388 U/L Critically high 15-37 [facility] Comment on above: Performed By: #### C MP ####[facility] Lobgncljsb3272 [place] [id number]. Emelina Ramon Bilirubin [Mass/Vol] 1.2 mg/dL Critically high 0.2-1.0 [facility] Comment on above: Performed By: #### C MP ####[facility] Hiyoopogco0724 [place] [address]Dr. Emelina Ramon Calcium [Mass/Vol] 7.8 mg/dL Critically low 8.5-10.1 [facility] Comment on above: Performed By: #### C MP ####[facility] Bhjbvxhihg1070 [place] [address]Dr. Emelina Ramon Chloride [Moles/Vol] 103 mmol/L Normal 98-107 [facility] Comment on above: Performed By: #### C MP ####[facility] Iqvihblqqo3787 [place] [address]Dr. Emelina Ramon CO2 [Moles/Vol] 20.8 mmol/L Critically low 21.0-32.0 [facility] Comment on above: Performed By: #### C MP ####[facility] Knytqexqid0647 [place] [address]Dr. Emelina Navarro Creatinine [Mass/Vol] 1.79 mg/dL Critically high 0.70-1.30 [facility] Comment on above: Performed By: #### C MP ####[facility] Lmuymsfsnk5398 [place] [address]Dr. Emelina Ramon EGFR-AF [place] 46 mL/min/1.73m2 Critically low >=60 [facility] Comment on above: Performed By: #### C MP ####[facility] Vjosndbykk6548 [place], [place] [address]Dg. Emelina Navarro EGFR-NON AF [place] 38 mL/min/1.73m2 Critically low >=60 [facility] Comment on above: Performed By: #### C MP ####[facility] Fntvejgljy1109 [place], [place] [address]Am. Emelina Navarro Globulin (S) [Mass/Vol] 3.9 g/dL Normal [facility] Comment on above: Performed By: #### C MP ####[facility] Dbdqgljcin5629 [place] [id number]. Emelina Navarro Glucose [Mass/Vol] 313 mg/dL Critically high 74-106 T [facility] Comment on above: Performed By: #### C MP ####[facility] Cajsvbgtzc9993 [place] [id number]. Emelina Ramon Potassium [Moles/Vol] 3.5 mmol/L Normal 3.5-5.1 [facility] Comment on above: Performed By: #### C MP ####[facility] Ckfumzvewb1946 [place] [address]Dr. Emelina Navarro Protein [Mass/Vol] 6.7 g/dL Normal 6.4-8.2 [facility] Comment on above: Performed By: #### C MP ####[facility] Wjdzumdqed9092 [place] [id number]. Emelina Navarro Sodium [Moles/Vol] 135 mmol/L Critically low 136-145 Th [facility] Comment on above: Performed By: #### C MP ####[facility] Vdrhrzivti2455 [place], [place] [address]Vk. Emelina Ramon Urea nitrogen [Mass/Vol] 41.0 mg/dL Critically high 7.0-18.0 [facility] Comment on above: Performed By: #### C MP ####[facility] Cdokmvgdre3198 [place], [place] [address]Fc. Awildanitza Ramon Urea nitrogen/Creatinine [Mass ratio] 22.9 mg/mg Normal [facility] Comment on above: Performed By: #### C MP ####[facility] Wgrvzowunu32[address] [place] [address]Dr. Emelina Navarro US SINGLE QUAD RT UPPERon US SINGLE QUAD RT UPPER Normal [facility] BLOOD GASES BTYon 04-28-2022 02 MODE NASAL CANNULA Normal [facility] Comment on above: Result Comment: rese rvoir cannula Performed By: #### A BG ####[facility] Npcnoxuqap2962[address] [place], [place] [address]Dr. Emelina Navarro ALLENS TEST Positive Normal [facility] Comment on above: Performed By: #### A BG ####[facility] Xnqqqcdlyy5[address] [place], [place] [address]Dr. Emelina Navarro Base excess Calc (Bld) [Moles/Vol] -6.6000 mmol/L Critically low -2.0-2.0 [facility] Comment on above: Performed By: #### A BG ####[facility] Oijtspqnze4215[address] [place], [place] [address]Dr. Emelina Navarro BIPAP PRESSURE Normal [facility] Comment on above: Performed By: #### A BG ####[facility] Tcxzwuvnlu3768[address] [place], [place] [address]Dr. Emelina Navarro CO2 [Moles/Vol] 34.0 mmol/L Critically high 23.0-28.0 [facility] Comment on above: Performed By: #### A BG ####[facility] Tmhvfncitt8082[address] [place], [place] [address]Dr. Emelina Navarro CPAP Normal [facility] Comment on above: Performed By: #### A BG ####[facility] Rfxzmdnrxa5273[address] [place], [place] [address]Dr. Emelina Navarro FIO2 Normal [facility] Comment on above: Performed By: #### A BG ####[facility] Vakgpfkskr[address] [place], [place] [address]Dr. Emelina Navarro HCO3 (Bld) [Moles/Vol] 20.5 mmol/L Critically low 22.0-26.0 [facility] Comment on above: Performed By: #### A BG ####[facility] Pvnwirkxxy40[address] [place] [address]Dr. Emelina Navarro LPM 5 Normal [facility] Comment on above: Performed By: #### A BG ####[facility] Ybvtialeaz2906 [place] [address]Dr. Emelina Navarro MINUTE VOLUME Normal [facility] Comment on above: Performed By: #### A BG ####[facility] Odkyxgbtjg0542 [place] [address]Dr. Emelina Navarro Oxygen (Bld) [Partial pressure] 62.0 mm[Hg] Critically low 80.0-100.0 [facility] Comment on above: Performed By: #### A BG ####[facility] Keolffzgah[address] [place], [place] [address]Dr. Emelina Navarro Oxygen saturation in Blood 92.6 % Critically low 95.0-100.0 [facility] Comment on above: Performed By: #### A BG ####[facility] Qbunbdhlsk2912[address] [place], [place] [address]Dr. Emelina Navarro PCO2 25.7 mmHg Critically low 35.0-45.0 [facility] Comment on above: Performed By: #### A BG ####[facility] Uevquzkyny8892[address] [place], [place] [address]Dr. Emelina Navarro PEEP Normal [facility] Comment on above: Performed By: #### A BG ####[facility] Phrfxjwnqz833[address] [place], [place] [address]Dr. Emelina Navarro pH (Bld) 7.443 [pH] Normal 7.350-7.45 0 [facility] Comment on above: Performed By: #### A BG ####[facility] Tlbtysuqka4486[address] [place], [place] [address]Dr. Emelina Navarro PIP Aladdin [facility] Comment on above: Performed By: #### A BG ####[facility] Mqtrzzwgzf22[address] [place], [place] [address]Dr. Emelina Navarro PS Normal [facility] Comment on above: Performed By: #### A BG ####[facility] Uxxhziuepk7312 [place] [id number]. Emelina Navarro PUNCTURE SITE LR Normal [facility] Comment on above: Performed By: #### A BG ####[facility] Gwmtcaytjo8060 [place] [address]Dr. Emelina Navarro RATE Normal [facility] Comment on above: Performed By: #### A BG ####[facility] Dyvvakirkp5724 [place] [address]Dr. Emelina Navarro VENT MODE Normal [facility] Comment on above: Performed By: #### A BG ####[facility] Icqtfaeyef9907 [place] [address]Dr. Emelina Navarro [facility] Comment on above: Performed By: #### A BG ####[facility] Cvgwkhzfhc7604 [place] [address]Dr. Emelina Navarro BNPon 04-28-2022 Natriuretic peptide B (Bld) [Mass/Vol] 10325.0 pg/mL Critically high <=900.0 [facility] Comment on above: Performed By: #### C MP, BNP, CMADM ####[facility] Ynoaogxntm6682 [place] [address]Dr. Emelina Navarro CARDIAC IMTIAZ ADMITon 022 CK [Catalytic activity/Vol] 86 U/L Normal 39-308 [facility] [facility] Comment on above: Performed By: #### C MP, BNP, CMADM ####[facility] [address] [place] [address]Dr. Emelina Navarro CK.MB [Mass/Vol] 1.41 ng/mL Normal <=3.60 [facility] Comment on above: Performed By: #### C MP, BNP, CMADM ####[facility] Crguusmwkt[address] [place], [place] [address]Dr. Emelina Navarro HSTROP 63.7 pg/mL Normal 4.0-76.1 [facility] Comment on above: Result Comment: CUT- OFF POINTS HAVE BEEN ESTABLISHED BASED ON THE FOURTH UNIVERSAL DEFINITIONS OF MYOCARDIALINFARCTION. THE UPPER REFERENCE LIMIT (URL) OF TROPONIN, DEFINED THE 99TH PERCENTILE OFcTnI DISTRIBUTION IN A REFERENCE POPULATION, HAS BEEN CONFIRMED THE DECISION THRESHOLDFOR [place] DIAGNOSIS. Performed By: #### C MP, BNP, CMADM ####[facility] [address] [place] [address]Dr. Emelina Navarro URBANO 276 ng/mL Critically high 16-96 [facility] Comment on above: Performed By: #### C MP, BNP, CMADM ####[facility] Hxecdvxnpl[address] [place] [address]Dr. Awildanitza Navarro CBC AUTO DIFFon 04-28-2022 BASO # 0.0 103/ul Normal 0.0-0.1 [facility] Comment on above: Performed By: #### C BC ####[facility] Phetrqwutm[address] [place], [place] [address]Dr. Emelina Navarro Basophils/100 WBC (Bld) 0.2 % Normal 0.2-2.0 [facility] Comment on above: Performed By: #### C BC ####[facility] Zouvdflmyo[address] [place], [place] [address]Dr. Emelina Navarro EO # 0.0 103/ul Normal 0.0-0.7 [facility] Comment on above: Performed By: #### C BC ####[facility] Dnjmppcwtg54[address] [place], [place] [address]Dr. Emelina Navarro Eosinophils/100 WBC (Bld) 0.1 % Critically low 0.9-7.0 [facility] Comment on above: Performed By: #### C BC ####[facility] Skjoybsmxl[address] [place], [place] [address]Dr. Emelina Naavrro Erythrocyte distribution width (RBC) [Ratio] 16.5 % Critically high 11.0-15.0 [facility] Comment on above: Performed By: #### C BC ####[facility] Zxtfowvgkr[address] [place], [place] [address]Dr. Emelina Navarro Hematocrit (Bld) [Volume fraction] 45.2 % Normal 42.0-54.0 [facility] Comment on above: Performed By: #### C BC ####[facility] [address] [place] [address]Dr. Emelina Navarro Hemoglobin (Bld) [Mass/Vol] 14.8 g/dL Normal 14.0-18.0 [facility] Comment on above: Performed By: #### C BC ####[facility] Adnjwwsncj[address] [place] [address]Dr. Emelina Navarro IG # 0.14 10e3/ul Critically high 0.00-0.03 [facility] Comment on above: Performed By: #### C BC ####[facility] Jdfjhhcopv[address] [place] [address]Dr. Emelina Navarro IG % 0.9 % Critically high 0.0-0.5 [facility] Comment on above: Performed By: #### C BC ####[facility] Lqdcwngnwq[address] [place] [address]Dr. Emelina Navarro LYMPH # 0.8 103/ul Critically low 1.2-3.8 [facility] Comment on above: Performed By: #### C BC ####[facility] Qmphnfadib[address] [place] [address]Dr. Emelina Navarro Lymphocytes/100 WBC (Bld) 5.1 % Critically low 20.5-60.0 [facility] Comment on above: Performed By: #### C BC ####[facility] S[address]qhtehgk[address] [place] [address]Dr. Emelina Navarro MANUAL DIFF REQ NO Normal [facility] Comment on above: Performed By: #### C BC ####[facility] Fwfflxumjz[address] [place] [address]Dr. Emelina Navarro MCH (RBC) [Entitic mass] 29.3 pg Normal 25.9-34.0 [facility] Comment on above: Performed By: #### C BC ####[facility] Nttcuiuypl[address] [place], [place] [address]Dr. Emelina Navarro MCHC (RBC) [Mass/Vol] 32.7 g/dL Normal 29.9-35.2 [facility] Comment on above: Performed By: #### C BC ####[facility] Eotuaqiquz[address] [place] [address]Dr. Emelina Navarro MCV (RBC) [Entitic vol] 89.5 fL Normal 80.0-94.0 [facility] Comment on above: Performed By: #### C BC ####[facility] Pdbpdpdmok[address] [place] [address]Dr. Emelina Navarro MONO # 1.1 103/ul Critically high 0.3-0.8 [facility] Comment on above: Performed By: #### C BC ####[facility] B[address]kkvzcj[address] [place] [address]Dr. Emelina Ramon Monocytes/100 WBC (Bld) 7.0 % Normal 1.7-12.0 [facility] Comment on above: Performed By: #### C BC ####[facility] Qjkqtjmbba4[address] [place], [place] [address]Dr. Emelina Navarro NEUT # 13.3 103/ul Critically high 1.4-6.5 [facility] Comment on above: Performed By: #### C BC ####[facility] Dlkchkfpor0424[address] [place], [place] [address]Dr. Emelina Ramon Neutrophils/100 WBC (Bld) 86.7 % Critically high 43.0-75.0 [facility] Comment on above: Performed By: #### C BC ####[facility] Ftcawnidcd32[address] [place], [place] [address]Dr. Emelina Ramon Platelet mean volume (Bld) [Entitic vol] 10.7 fL Normal 9.5-13.5 [facility] Comment on above: Performed By: #### C BC ####[facility] [address] [place] [id number]. Emelina Ramon PLT 200 103/ul Normal 150-450 [facility] Comment on above: Performed By: #### C BC ####[facility] Hdehkokxxh5252[address] [place], [place] [address]Dr. Awildanitza Ramon RBC 5.05 106/ul Normal 4.70-6.10 [facility] Comment on above: Performed By: #### C BC ####[facility] P[address]qvks[address] [place], [place] [address]Dr. Emelina Navarro WBC 15.4 103/ul Critically high 4.0-11.0 The [facility] Comment on above: Performed By: #### C BC ####[facility] [address]qxbsm[address] [place], [place] [address]Sy. Emelina Navarro CULTURE BLOODon 04-28-2022 Microscopic examination of blood, culture Culture Observations: NO GROWTH AT 5 DAYS. Normal [facility] Comment on above: Performed By: #### B LDCX2 ####[facility] [address]re[address] [place], [place] [address]Ps. Emelina Navarro Microscopic examination of blood, culture Culture Observations: NO GROWTH AT 5 DAYS. Normal [facility] Comment on above: Performed By: #### B LDCX1 ####[facility] Y[address]cjwhben[address] [place], [place] [address]Ih. Emelina Navarro Covid-19 PCR (CVDTB)on 04-19 SARS-CoV-2 (COVID-19) RNA RADHA+probe Ql (Unsp spec) Not detected Normal NOT DETECTED [facility] Comment on above: Result Comment: When [...] for this test is supported by the [employer] of Health and Human Service's declaration [...] be used). Performed By: #### C VDTBH ####[facility] [address]xwuipafn37[address] [place] [id number]. Emelina Navarro DIGOXINon 04-28-2022 DIG 0.8 ng/mL Critically low 0.9-2.0 [facility] Comment on above: Performed By: #### D IG ####[facility] Klkhakaftx[address] [place], [place] [address]Dr. Emelina Navarro ER URINE PROFILEon 2 Bilirubin Ql (U) Negative Normal NEGATIVE The [facility] Comment on above: Performed By: #### Hitesh POLK UMICRO ####[facility] Npjyzmkjml[address] [place], [place] [address]Dr. Emelina Navarro Clarity (U) CLEAR Normal CLEAR [facility] Comment on above: Performed By: #### Hitesh POLK UMICRO ####[facility] Oagvxbezgm[address] [place], [place] [address]Dr. Emelina Navarro Color (U) YELLOW Normal YELLOW [facility] Comment on above: Performed By: #### Hitesh POLK UMICRO ####[facility] Jbwkctnjcs[address] [place], [place] [address]Dr. Emelina Navarro ERUAHD A micrscopic examina tion will be performed if indicated. Normal [facility] Comment on above: Performed By: #### Hitesh POLK UMICRO ####[facility] Qcxnmrylrj0432[address] [place], [place] [address]Dr. Emelina Navarro Glucose Ql (U) 500 mg/dl Abnormal NEGATIVE [facility] Comment on above: Performed By: #### Hitesh POLK UMICRO ####[facility] Jnfamnnbaf[address] [place], [place] [address]Dr. Emelina Navarro Hemoglobin Ql (U) MODERATE Abnormal NEGATIVE [facility] Comment on above: Performed By: #### Hitesh POLK UMICRO ####[facility] Yeheeicxgt886[address] [place], [place] [address]Dr. Emelina Navarro Ketones Ql (U) Negative Normal NEGATIVE [facility] Comment on above: Performed By: #### Hitesh POLK UMICRO ####[facility] Ztcxumjwzr[address] [place], [place] [address]Dr. Emelina Navarro LEUKOCYTES Negative Normal NEGATIVE [facility] Comment on above: Performed By: #### LINDSAY BOLANDRO ####[facility] [address] [place] [address]Dr. Emelina Navarro Nitrite Ql (U) Negative Normal NEGATIVE [facility] Comment on above: Performed By: #### Hitesh POLK UMICRO ####[facility] [address]fjlgdm[address] [place] [address]Dr. Emelina Navarro pH (U) 5.0 [pH] Normal 5-9 [facility] Comment on above: Performed By: #### Hitesh POLK UMICRO ####[facility] Kscysdkjnw23[address] [place], [place] [address]Dr. Emelina Navarro Protein (U) [Mass/Vol] 100 mg/dL Abnormal NEGATIVE/ TRACE [facility] Comment on above: Performed By: #### RAMANDEEP BOLANDICRO ####[facility] Qznskglmkq8[address] [place], [place] [address]Dr. Emelina Navarro SPEC GRAVITY 1.025 Normal 1.005-<=1. 025 [facility] Comment on above: Performed By: #### LINDSAY BOLANDRO ####[facility] Dpbnngrorh4[address] [place], [place] [address]Dr. Emelina Navarro UR MICRO IND INDICATED Normal [facility] Comment on above: Performed By: #### Hitesh POLK UMICRO ####[facility] Vsceygjcgm[address] [place], [place] [address]Dr. Emelina Navarro Urobilinogen Qn (U) 0.2 {Ashley'U}/dL Normal 0.2 - 1. 0 [facility] Comment on above: Performed By: #### Hitesh POLK UMICRO ####[facility] Gwlzwsiiko3[address] [place], [place] [address]Dr. Emelina Navarro LACTATE/LACTIC ACIDon 2021 Lactate [Moles/Vol] 5.1 mmol/L Critically high 0.4-1.9 [facility] Comment on above: Performed By: #### L ACT ####[facility] Torgwyjqef[address] [place], [place] [address]Dr. Emelina Navarro Lactate [Moles/Vol] 4.8 mmol/L Critically high 0.4-1.9 [facility] Comment on above: Performed By: #### L ACT ####[facility] [address]pgtl[address] [place] [address]Dr. Emelina Navarro Lactate [Moles/Vol] 5.4 mmol/L Critically high 0.4-1.9 [facility] Comment on above: Performed By: #### L ACT ####[facility] I[address]mcjufkdg[address] [place] [address]Dr. Emelina Navarro POINT OF CARE GLUCOSEon 04-19 0-2021 Glucose [Mass/Vol] 426 mg/dL Critically high 74-106 [facility] Comment on above: Performed By: #### P OCGLUC ####[facility] Phbmzzdxxd27[address] [place], [place] [address]Dr. Emelina Navarro Glucose [Mass/Vol] 476 mg/dL Critically high 74-106 [facility] Comment on above: Performed By: #### P OCGLUC ####[facility] Alexjleeks[address]24[address] [place], [place] [address]Dr. Emelina Navarro Glucose [Mass/Vol] 347 mg/dL Critically high 74-106 [facility] Comment on above: Performed By: #### P OCGLUC ####[facility] Wzirfbfjyu[address] [place], [place] [address]Dr. Emelina Navarro PROF 14(COMP METB)on 022 Albumin [Mass/Vol] 3.4 g/dL Normal 3.4-5.0 [facility] Comment on above: Performed By: #### C MP, BNP, CMADM ####[facility] [address]fbyz[address] [place] [address]Dr. Emelina Navarro Albumin/Globulin [Mass ratio] 0.8 {ratio} Normal [facility] Comment on above: Performed By: #### C MP, BNP, CMADM ####[facility] Wnuprstppl26[address] [place] [address]Dr. Emelina Navarro ALP [Catalytic activity/Vol] 85 U/L Normal 46-116 [facility] Comment on above: Performed By: #### C MP, BNP, CMADM ####[facility] Gjzjmoatnb39[address] [place] [address]Dr. Emelina Navarro ALT [Catalytic activity/Vol] 246 U/L Critically high 16-63 [facility] Comment on above: Performed By: #### C MP, BNP, CMADM ####[facility] Edxrxmkdzq040[address] [place] [address]Dr. Emelina Navarro Anion gap [Moles/Vol] 20.7 mmol/L Normal Th [facility] Comment on above: Performed By: #### C MP, BNP, CMADM ####[facility] Mgkojcoyje[address] [place] [address]Dr. Emelina Navarro AST [Catalytic activity/Vol] 299 U/L Critically high 15-37 [facility] Comment on above: Performed By: #### C MP, BNP, CMADM ####[facility] Nbbexqlzmn037[address] [place] [address]Dr. Emelina Navarro Bilirubin [Mass/Vol] 2.7 mg/dL Critically high 0.2-1.0 [facility] Comment on above: Performed By: #### C MP, BNP, CMADM ####[facility] Snkyowlafj[address] [place], [place] [address]Dr. Emelina Navarro Calcium [Mass/Vol] 8.5 mg/dL Normal 8.5-10.1 [facility] Comment on above: Performed By: #### C MP, BNP, CMADM ####[facility] V[address]kcurover[address] [place] [address]Dr. Emelina Navarro Chloride [Moles/Vol] 96 mmol/L Critically low 98-107 [facility] Comment on above: Performed By: #### C MP, BNP, CMADM ####[facility] Dcnlfyyfrw[address] [place], [place] [address]Dr. Emelina Navarro CO2 [Moles/Vol] 19.3 mmol/L Critically low 21.0-32.0 [facility] Comment on above: Performed By: #### C MP, BNP, CMADM ####[facility] Qdczeeakqx58[address] [place] [address]Dr. Emelina Navarro Creatinine [Mass/Vol] 2.46 mg/dL Critically high 0.70-1.30 [facility] Comment on above: Performed By: #### C MP, BNP, CMADM ####[facility] Y[address]xigxmkqv7[address] [place] [address]Dr. Emelina Navarro EGFR-AF [place] 32 mL/min/1.73m2 Critically low >=60 [facility] Comment on above: Performed By: #### C MP, BNP, CMADM ####[facility] Hdmoinydxk[address] [place] [address]Dr. Emelina Navarro EGFR-NON AF [place] 26 mL/min/1.73m2 Critically low >=60 [facility] Comment on above: Performed By: #### C MP, BNP, CMADM ####[facility] Hvjunxxvyh45[address] [place] [address]Dr. Awildanitza Navarro Globulin (S) [Mass/Vol] 4.4 g/dL Normal [facility] Comment on above: Performed By: #### C MP, BNP, CMADM ####[facility] Rezhhmkfpr[address] [place] [address]Dr. Emelina Ramon Glucose [Mass/Vol] 359 mg/dL Critically high 74-106 [facility] Comment on above: Performed By: #### C MP, BNP, CMADM ####[facility] Jrsjrpwuvo9[address] [place] [address]Dr. Emelina Navarro Potassium [Moles/Vol] 7.0 mmol/L Critically high 3.5-5.1 [facility] Comment on above: Performed By: #### C MP, BNP, CMADM ####[facility] Zgdtavmvzm4781 [place] [address]Dr. Emelina Navarro Protein [Mass/Vol] 7.8 g/dL Normal 6.4-8.2 [facility] Comment on above: Performed By: #### C MP, BNP, CMADM ####[facility] [address]qmxeiwkx[address] [place], [place] [address]Dr. Emelina Navarro Sodium [Moles/Vol] 129 mmol/L Critically low 136-145 Th [facility] Comment on above: Performed By: #### C MP, BNP, CMADM ####[facility] Fxlgovdfxb70[address] [place], [place] [address]Dr. Emelina Navarro Urea nitrogen [Mass/Vol] 37.0 mg/dL Critically high 7.0-18.0 [facility] Comment on above: Performed By: #### C MP, BNP, CMADM ####[facility] Nfvnhqwkeb[address] [place], [place] [address]Dr. Emelina Navarro Urea nitrogen/Creatinine [Mass ratio] 15.0 mg/mg Normal [facility] Comment on above: Performed By: #### C MP, BNP, CMADM ####[facility] Jdshxvcmhk4[address] [place], [place] [address]Dr. Emelina Navarro PROF CHEM 8 (BAS METB)on Anion gap [Moles/Vol] 19.2 mmol/L Normal [facility] Comment on above: Performed By: #### B MP ####[facility] Jzrfpibeem[address] [place], [place] [address]Dr. Emelina Navarro Calcium [Mass/Vol] 7.7 mg/dL Critically low 8.5-10.1 [facility] Comment on above: Performed By: #### B MP ####[facility] Xgsbbprimq4[address] [place], [place] [address]Dr. Emelina Navarro Chloride [Moles/Vol] 97 mmol/L Critically low 98-107 [facility] Comment on above: Performed By: #### B MP ####[facility] Zvzkyxddkh39[address] [place], [place] [address]Dr. Emelina Navarro CO2 [Moles/Vol] 20.5 mmol/L Critically low 21.0-32.0 [facility] Comment on above: Performed By: #### B MP ####[facility] Wlksvaksda[address] [place], [place] [address]Dr. Emelina Navarro Creatinine [Mass/Vol] 2.18 mg/dL Critically high 0.70-1.30 [facility] Comment on above: Performed By: #### B MP ####[facility] Fkksskovre[address] [place] [address]Dr. Emelina Navarro EGFR-AF [place] 37 mL/min/1.73m2 Critically low >=60 [facility] Comment on above: Performed By: #### B MP ####[facility] Apyzbocajo7[address] [place] [address]Dr. Emelina Navarro EGFR-NON AF [place] 30 mL/min/1.73m2 Critically low >=60 [facility] Comment on above: Performed By: #### B MP ####[facility] Zdxyukbwqd1222 [place] [address]Dr. Emelina Navarro Glucose [Mass/Vol] 434 mg/dL Critically high 74-106 T [facility] Comment on above: Performed By: #### B MP ####[facility] Lowfgfxwls5384[address] [place], [place] [address]Dr. Emelina Navarro Potassium [Moles/Vol] 4.7 mmol/L Normal 3.5-5.1 [facility] Comment on above: Performed By: #### B MP ####[facility] Fenqtlzpzz[address] [place], [place] [address]Dr. Emelina Navarro Sodium [Moles/Vol] 132 mmol/L Critically low 136-145 Th e [facility] Comment on above: Performed By: #### B MP ####[facility] Zbqxdfdtpu64[address] [place], [place] [address]Dr. Emelina Navarro Urea nitrogen [Mass/Vol] 37.0 mg/dL Critically high 7.0-18.0 [facility] Comment on above: Performed By: #### B MP ####[facility] P[address]zeasbxw15[address] [place] [address]Dr. Awildanitza Ramon Urea nitrogen/Creatinine [Mass ratio] 17.0 mg/mg Normal [facility] Comment on above: Performed By: #### B MP ####[facility] Yqrbeshevf[address] [place] [address]Dr. Emelina Ramon PROTIMEon 04-28-2022 INR Coag (PPP) [Relative time] 1.91 {INR} Normal [facility] Comment on above: Performed By: #### P TT, PT ####[facility] Cxmzpulpbb[address] [place], [place] [address]Dr. Emelina Navarro INR GUIDELINES SEE BELOW Normal [facility] Comment on above: Result Comment: WENDY RED INR: 2.0 - 3.0 CONDITIONS NOT LISTED BELOW 2.5 - 3.5 FOR PROSTHETIC HEART VALVE REPLACEMENT 2.5 - 3.5 RECURRENT THROMBOSIS Performed By: #### P TT, PT ####[facility] Crqjmcnqsm[address] [place], [place] [address]Dr. Emelina Navarro PT Coag (PPP) [Time] 19.8 s Critically high 9.0-11.6 [facility] Comment on above: Performed By: #### P TT, PT ####[facility] Ewuazrtmjt38[address] [place], [place] [address]Dr. Emelina Navarro PTTon 04-28-2022 aPTT Coag (Bld) [Time] 33.0 s Normal 22.3-36.2 [facility] Comment on above: Performed By: #### P TT, PT ####[facility] Yiemzalyjl[address] [place], [place] [address]Dr. Emelina Navarro RESPIRATORY PANEL PLUSon Adenovirus Not detected Normal NOT DETECTED [facility] Comment on above: Performed By: #### R SPLUS ####[facility] Ctfuknumvx[address] [place], [place] [address]Dr. Emelina Navarro B. Parapertusis Not detected Normal NOT DETECTED [facility] Comment on above: Performed By: #### R SPLUS ####[facility] Jsdalmjtpo[address] [place], [place] [address]Dr. Emelina Navarro B. Pertussis Not detected Normal NOT DETECTED [facility] Comment on above: Performed By: #### R SPLUS ####[facility] Hvmcjvnfhi4[address] [place], [place] [address]Dr. Emelina Navarro Chlamydia Pneumoniae Not detected Normal NOT DETECTED [facility] Comment on above: Performed By: #### R SPLUS ####[facility] Dfkeqjzsip[address] [place], [place] [address]Dr. Emelina Navarro Coronavirus 229E Not detected Normal NOT DETECTED [facility] Comment on above: Performed By: #### R SPLUS ####[facility] [address]eyxmcxfv43[address] [place] [address]Dr. Emelina [facility] Coronavirus HKU1 Not detected Normal NOT DETECTED [facility] Comment on above: Performed By: #### R SPLUS ####[facility] Lydndlweyu[address] [place] [address]Dr. Emelina [facility] Coronavirus NL63 Not detected Normal NOT DETECTED [facility] Comment on above: Performed By: #### R SPLUS ####[facility] Rmdjzkrqpn8[address] [place], [place] [address]Dr. Emelina [facility] Coronavirus OC43 Not detected Normal NOT DETECTED [facility] Comment on above: Performed By: #### R SPLUS ####[facility] Nrumtxwdwc[address] [place], [place] [address]Dr. Emelina Navarro Influenza A H1 2009 Not detected Normal NOT DETECTED [facility] Comment on above: Performed By: #### R SPLUS ####[facility] Qwzqpecasv00[address] [place], [place] [address]Dr. Emelina Navarro Influenza A H3 Not detected Normal NOT DETECTED [facility] Comment on above: Performed By: #### R SPLUS ####[facility] Cvumczzpqa[address] [place], [place] [address]Dr. Emelina Navarro Influenza B Not detected Normal NOT DETECTED [facility] Comment on above: Performed By: #### R SPLUS ####[facility] Bikxfdvsuc[address] [place], [place] [address]Dr. Emelina Navarro Metapneumovirus Not detected Normal NOT DETECTED [facility] Comment on above: Performed By: #### R SPLUS ####[facility] Igmldcqrtg4265 [place] [address]Dr. Emelina Navarro Mycoplas. Pneumoniae Not detected Normal NOT DETECTED [facility] Comment on above: Performed By: #### R SPLUS ####[facility] Hfrocjvqtt[address] [place], [place] [address]Dr. Emelina Navarro Parainfluenza 1 Not detected Normal NOT DETECTED [facility] Comment on above: Performed By: #### R SPLUS ####[facility] Lvahnsmbdb18[address] [place], [place] [address]Dr. Emelina Navarro Parainfluenza 2 Not detected Normal NOT DETECTED [facility] Comment on above: Performed By: #### R SPLUS ####[facility] Cx[address]rdwjrlf[address] [place], [place] [address]Dr. Emelina Navarro Parainfluenza 3 Detected Abnormal NOT DETECTED [facility] Comment on above: Performed By: #### R SPLUS ####[facility] Zzmojpdbic[address] [place], [place] [address]Dr. Emelina Navarro Parainfluenza 4 Not detected Normal NOT DETECTED [facility] Comment on above: Performed By: #### R SPLUS ####[facility] Adrwsnyhhu8[address] [place], [place] [address]Dr. Emelina Navarro Rhino/Enterovirus Not detected Normal NOT DETECTED [facility] Comment on above: Performed By: #### R SPLUS ####[facility] [facility] [id number] [place], [place] [address]Dr. Emelina Navarro RP2 Header 1 RESPIRATORY PANEL: VIRUSES Normal [facility] Comment on above: Performed By: #### R SPLUS ####[facility] D[address] [place], [place] [address]Dr. Emelina Navarro RP2 Header 2 RESPIRATORY PANEL: BACTERIA Normal [facility] Comment on above: Performed By: #### R SPLUS ####[facility] [address] [place], [place] [address]Dr. Awildanitza Navarro RSV Not detected Normal NOT DETECTED [facility] Comment on above: Performed By: #### R SPLUS ####[facility] Ljbglhq[address] [place], [place] [address]Dr. Emelina Navarro SARS-CoV-2 (COVID-19) RNA RADHA+probe Ql (Unsp spec) Not detected Normal NOT DETECTED [facility] Comment on above: Performed By: #### R SPLUS ####[facility] Mbw[address]qu[address] [place], [place] [address]Dr. Emelina Navarro URINE MICROSCOPIC ONLYon BACTERIA NONE SEEN Normal NONE SEEN [facility] Comment on above: Performed By: #### RAMANDEEP BOLANDICRO ####[facility] [address] [place] [address]Dr. Emelina Navarro Bacteria identified Cx Nom (U) NOT INDICATED Normal [facility] Comment on above: Performed By: #### Hitesh POLK UMICRO ####[facility] [address] [place] [address]Dr. Emelina Navarro CAST SEEN Abnormal NONE SEEN [facility] Comment on above: Performed By: #### Hitesh POLK UMICRO ####[facility] [address] [place] [address]Dr. Emelina Navarro Crystals LM Nom (Urine sed) NONE SEEN Normal NONE SEEN [facility] Comment on above: Performed By: #### Hitesh POLK UMICRO ####[facility] V[address] [place], [place] [address]Dr. Emelina Navarro Epithelial cells LM Ql (Urine sed) FEW Abnormal NONE SEEN /RARE [facility] Comment on above: Performed By: #### Hitesh POLK UMICRO ####[facility] F[address] [place], [place] [address]Dr. Emelina Navarro HYALINE CAST MANY Normal [facility] Comment on above: Performed By: #### RAMANDEEP BOLANDICRO ####[facility] X[address] [place], [place] [address]Dr. Emelina Navarro MUCOUS NONE SEEN Normal NONE SEEN [facility] Comment on above: Performed By: #### LINDSAY BOLANDRO ####[facility] [address] [place], [place] [address]Dr. Emelina Navarro RBC 0-2 Normal 0-2 [facility] Comment on above: Performed By: #### RAMANDEEP BOLANDICRO ####[facility] Db[address] [place], [place] [address]Dr. Emelina Navarro WBC 0-2 Abnormal NONE SEEN [facility] Comment on above: Performed By: #### Hitesh POLK UMICRO ####[facility] [address] [place], [place] [address]Dr. Emelina Navarro XR CHEST 1 Von 04-28-2022 XR CHEST 1 V Normal [facility] Albumin [Mass/volume] in Ser um or PlasmaOrdered By: Ethan Cummings on 04-10-2022 Albumin [Mass/Vol] 3.8 g/dL 2.9-4.4 [facility] IgA [Mass/volume] in Serum o r PlasmaOrdered By: Ethan Cummings on 04-10-2022 IgA [Mass/Vol] 607 mg/dL 61-437 [facility] IgG [Mass/volume] in Serum o r PlasmaOrdered By: Ethan Cummings on 04-10-2022 IgG [Mass/Vol] 1207 mg/dL 603-1613 [facility] IgM [Mass/volume] in Serum o r PlasmaOrdered By: Ethan Cummings on 04-10-2022 IgM [Mass/Vol] 94 mg/dL 20-172 [facility] Comment on above: Performed at: [facility] [place], [place] [id number] Director: Alexis Winslow PhD, Phone: [phone] Immunoglobulin light chains. kappa.free [Mass/volume] in SerumOrdered By: Ethan Cummings on 04-10-2022 Immunoglobulin light chains.kappa.free (S) [Mass/Vol] 58.6 mg/L 3.3-19.4 [facility] Immunoglobulin light chains. kappa.free/Immunoglobulin light chains.lambda.free [MassOrdered By: Ethan Cummings on 04-10-2022 Immunoglobulin light chains.kappa.free/Imm unoglobulin light chains.lambda.free (S) [Mass ratio] 1.42 0.26-1.65 [facility] Comment on above: Performed at: [facility] [place], [place] [id number] Director: Alexis Winslow PhD, Phone: [phone] Immunoglobulin light chains. lambda.free [Mass/volume] in Serum or PlasmaOrdered By: Ethan Cummings on 04-10-2022 Immunoglobulin light chains.lambda.free [Mass/Vol] 41.2 mg/L 5.7-26.3 [facility] - Hematology and Cell countsOrdered By: Ethan Cummings on 04-10-2022 Nucleated RBC/100 WBC (Bld) [Ratio] 0.0 % 0-0.5 [facility] No Panel InformationOrdered By: Ethan Cummings on 04-10-2022 BCR/abl See comment [facility] Comment on above: See report. Scanned copy available in EMR. CBC Comment See comment [facility] Comment on above: Slide referred to raquel thologist for review Platelet Estimate Normal Normal [facility] Platelet Morphology Comment Normal Normal [facility] Protein Electrophoresis M-Brenden Not observed g/dL Not Observed [facility] Protein Electrophoresis Note See comment . [facility] Comment on above: Protein electrophore sis scan will follow via computer,mail, or lace roller operator delivery.Performed at: [facility] [address] [id number] Director: Alexis Winslow PhD, Phone: [phone] Serum Immunofixation See comment . [facility] Comment on above: No monoclonality det ected. Protein [Mass/volume] in Ser um or PlasmaOrdered By: Ethan Cummings on 04-10-2022 Protein [Mass/Vol] 7.4 g/dL 6.0-8.5 [facility] RBC morphologyOrdered By: Francis Cummings on 04-10-2022 RBC morphology finding Nom (Bld) Normal [facility] Serum globulin measurement ( mass/volume)Ordered By: Ethan Cummings on 04-10-2022 Globulin (S) [Mass/Vol] 3.6 g/dL 2.2-3.9 [facility] Serum or plasma albumin/glob ulin mass ratioOrdered By: Ethan Cummings on 04-10-2022 Albumin/Globulin [Mass ratio] 1.1 {ratio} 0.7-1.7 [facility] Serum or plasma alpha 1 glob ulin measurement by electrophoresis (mass/volume)Ordered By: Ethan Cummings on 04-10-2022 Alpha 1 globulin Elph [Mass/Vol] 0.2 g/dL 0.0-0.4 [facility] Serum or plasma alpha 2 glob ulin measurement by electrophoresis (mass/volume)Ordered By: Ethan Cummings on 04-10-2022 Alpha 2 globulin Elph [Mass/Vol] 0.9 g/dL 0.4-1.0 [facility] Serum or plasma beta globuli n measurement by electrophoresis (mass/volume)Ordered By: Ethan Cummings on 04-10-2022 Beta globulin Elph [Mass/Vol] 1.2 g/dL 0.7-1.3 [facility] Serum or plasma gamma globul in measurement by electrophoresis (mass/volume)Ordered By: Ethan Cummings on 04-10-2022 Gamma globulin Elph [Mass/Vol] 1.3 g/dL 0.4-1.8 [facility] Serum or plasma methylmalona te measurement (moles/volume)Ordered By: Ethan Cummings on 04-10-2022 Methylmalonate [Moles/Vol] 668 nmol/L 0-378 [facility] Comment on above: This test was develo ped and its performance characteristicsdetermined by [employer]. It has not been cleared orapproved by the Food and Drug Administration.Performed at: [address] [id number] Director: Natalia Vergara MD, Phone: [phone] XR foot LT min 3V*on 022 XR foot LT min 3V* [facility] [employer] Other XR foot LT min 3V* [facility] [employer] Other XR foot LT min 3V* [address] [place] [address] [employer] Other XR foot LT min 3V* [place] [address] [employer] Other XR foot LT min 3V* XRay Report [employer] Other XR foot LT min 3V* Signed [employer] Other XR foot LT min 3V* Patient: Adwoa Porter MR#: [id number] [facility] [employer] Other XR foot LT min 3V* 7 [employer] Other XR foot LT min 3V* : 1955 Acct:[id number] [employer] Other XR foot LT min 3V* Age/Sex: 66 / M ADM Date: 02/19/22 [employer] Other XR foot LT min 3V* Loc: XDUCLY Room: Ty pe: REG CLI [employer] Other XR foot LT min 3V* Attending Dr: Ruthie EUCEDA [employer] Other XR foot LT min 3V* Ordering Provider: KINSEY Jiménez [employer] Other XR foot LT min 3V* Date of Service: 02/19/22 [employer] Other XR foot LT min 3V* [id number]) XR/XR foot LT min 3V*: Left foot pain [employer] Other XR foot LT min 3V* Copies to: KINSEY Mancia [employer] Other XR foot LT min 3V* LEFT FOOT - 3 views [employer] Other XR foot LT min 3V* CLINICAL HISTORY: Le ft foot pain. [employer] Other XR foot LT min 3V* COMPARISON: Left tessie t series 02/09/2020 [employer] Other XR foot LT min 3V* FINDINGS: [employer] Other XR foot LT min 3V* Soft tissue swelling is noted. Since the prior study, as been interval partial amputation of the [employer] Other XR foot LT min 3V* first digit. 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 Questionable [employer] Other XR foot LT min 3V* subluxation/dislocat ion involving the PIP joint of the second digit. No definite plain film [employer] Other XR foot LT min 3V* evidence of osteomyelitis. [employer] Other XR foot LT min 3V* X R/XR foot LT min 3V* [employer] Other XR foot LT min 3V* IMPRESSION: [employer] Other XR foot LT min 3V* QUESTIONABLE SUBLUXATION/DISLOCATION INVOLVING THE PIP JOINT OF THE SECOND DIGIT. SOFT TISSUE [employer] Other XR foot LT min 3V* SWELLING. [employer] Other XR foot LT min 3V* Impression dictated by: Brennan Salgado Jr., D.OWesley02/19/2022 11:52 AM [employer] Other XR foot LT min 3V* Dictation Location: [place] [address] [employer] Other XR foot LT min 3V* Transcribed By: CONSUELO 02/19/22 1152 [employer] Other XR foot LT min 3V* Dictated By: Brennan Salgado Jr, DO 02/19/22 1148 [employer] Other XR foot LT min 3V* Signed By: [employer] Other XR foot LT min 3V* 02/19/22 1152 [facility] [employer] Other Glucose - FINGER STICKon Glucose [Mass/Vol] 166 mg/dL [employer] Other A1C HEMOGLOBINon 11-16-2021 HbA1c (Bld) [Mass fraction] 10.7 % [employer] Other Glucose - FINGER STICKon Glucose [Mass/Vol] 205 mg/dL [employer] Other HbA1c (Bld) [Mass fraction]o n 11-16-2021 A1C HEMOGLOBIN [facility] [employer] Other Glucose - FINGER STICKon Glucose [Mass/Vol] 158 mg/dL [employer] Other BASIC METABOLIC PANELon 05-3 Calcium [Mass/Vol] 9.9 mg/dL Normal 8.6-10.3 [facility] Comment on above: Order Comment: No: D o not add to previous draw Performed By: #### 9 9909, 47035, 41487, 77226 #### [facility] [address] [place] [address], [facility] Chloride [Moles/Vol] 93 mmol/L Low 98-107 [facility] Comment on above: Order Comment: No: D o not add to previous draw Performed By: #### 9 9909, 23854, 71141, 05764 #### [facility] [address] [place] [address], [place] CO2 [Moles/Vol] 32 mmol/L High 21-31 [facility] Comment on above: Order Comment: No: D o not add to previous draw Performed By: #### 9 9909, 60448, 90831, 73062 #### [facility] [address] [place] [address], [place] Creatinine [Mass/Vol] 1.89 mg/dL High 0.70-1.30 [facility] Comment on above: Order Comment: No: D o not add to previous draw Performed By: #### 9 9909, 57699, 42458, 45546 #### [facility] [address] [place] [address], [place] eGFR- 43 ml/min/1.73sq m Abnormal >60 [facility] Comment on above: Order Comment: No: D o not add to previous draw Performed By: #### 9 9909, 87429, 58204, 21154 #### [facility] [address] [place] [address], [place] eGFR- non- 36 ml/min/1.73sq m Abnormal >60 [facility] Comment on above: Order Comment: No: D o not add to previous draw Performed By: #### 9 9909, 37778, 26923, 92153 #### [facility] [address] [place] [address], [place] Glucose [Mass/Vol] 217 mg/dL High 70-100 [facility] Comment on above: Order Comment: No: D o not add to previous draw Performed By: #### 9 9909, 66812, 71983, 17932 #### [facility] [address] [place] [address], [place] Potassium [Moles/Vol] 4.2 mmol/L Normal 3.5-5.1 [facility] Comment on above: Order Comment: No: D o not add to previous draw Performed By: #### 9 9909, 42100, 84698, 09345 #### [facility] [address] [place] [address], [place] Sodium [Moles/Vol] 135 mmol/L Low 136-145 [facility] Comment on above: Order Comment: No: D o not add to previous draw Performed By: #### 9 9909, 88556, 25067, 92823 #### [facility] [address] [place] [address], [place] Urea nitrogen [Mass/Vol] 53 mg/dL High 7-25 [facility] Comment on above: Order Comment: No: D o not add to previous draw Performed By: #### 9 9909, 76960, 94370, 71870 #### [facility] [address] [place] [address], [place] POC GLUCOSE LABon 04-17-2021 Glucose [Mass/Vol] 274 mg/dL High 70-100 [facility] Comment on above: Performed By: #### 8 5499 #### [facility] [address] [place] [address], [facility] PROTHROMBIN TIMEon 1 INR Coag (PPP) [Relative time] 1.76 {INR} High 0.91-1.16 [facility] Comment on above: Order Comment: No: D [...] By: #### 3 5200 #### [facility] [address] [place] [address], [facility] PT Coag (PPP) [Time] 20.6 s High 12.3-14.8 [facility] Comment on above: Order Comment: No: D o not add to previous draw Result Comment: ALL RESULTS MUST BE INTERPRETED WITH RESPECT TO BLOOD DRAWING ARTIFACT OR DILUTION ERROR OF ANTICOAGULANT AT THE TIME OF SAMPLING. Performed By: #### 3 5200 #### [facility] [address] [place] [address], [facility] INR Coag (PPP) [Relative time] 1.64 {INR} High 0.91-1.16 [facility] Comment on above: Order Comment: No: D [...] By: #### 3 5200 #### [facility] [address] [place] [address], [facility] PT Coag (PPP) [Time] 19.5 s High 12.3-14.8 [facility] Comment on above: Order Comment: No: D o not add to previous draw Result Comment: ALL RESULTS MUST BE INTERPRETED WITH RESPECT TO BLOOD DRAWING ARTIFACT OR DILUTION ERROR OF ANTICOAGULANT AT THE TIME OF SAMPLING. Performed By: #### 3 5200 #### [facility] [address] [place] [address], [facility] BASIC METABOLIC PANELon 05-2 Calcium [Mass/Vol] 10.0 mg/dL Normal 8.6-10.3 [facility] Comment on above: Order Comment: No: D o not add to previous draw Performed By: #### 1 0070, 61396 #### [facility] [address] [place] [id number], [facility] Chloride [Moles/Vol] 92 mmol/L Low 98-107 [facility] Comment on above: Order Comment: No: D o not add to previous draw Performed By: #### 1 69, 73131 #### [facility] [address] [place] [address], [facility] CO2 [Moles/Vol] 35 mmol/L High 21-31 [facility] Comment on above: Order Comment: No: D o not add to previous draw Performed By: #### 1 69, 29460 #### [facility] [address] [place] [address], [place] Creatinine [Mass/Vol] 1.89 mg/dL High 0.70-1.30 [facility] Comment on above: Order Comment: No: D o not add to previous draw Performed By: #### 1 69, 95655 #### [facility] [address] [place] [address], [facility] eGFR- 43 ml/min/1.73sq m Abnormal >60 [facility] Comment on above: Order Comment: No: D o not add to previous draw Performed By: #### 1 69, 80055 #### [facility] [address] [place] [address], [facility] eGFR- non- 36 ml/min/1.73sq m Abnormal >60 [facility] Comment on above: Order Comment: No: D o not add to previous draw Performed By: #### 1 69, 51697 #### [facility] [address] [place] [address], [place] Glucose [Mass/Vol] 187 mg/dL High 70-100 [facility] Comment on above: Order Comment: No: D o not add to previous draw Performed By: #### 1 69, 71215 #### [facility] [address] [place] [address], [place] Potassium [Moles/Vol] 4.1 mmol/L Normal 3.5-5.1 [facility] Comment on above: Order Comment: No: D o not add to previous draw Performed By: #### 1 69, 34844 #### [facility] [address] [place] [address], [facility] Sodium [Moles/Vol] 137 mmol/L Normal 136-145 [facility] Comment on above: Order Comment: No: D o not add to previous draw Performed By: #### 1 69, 05141 #### [facility] [address] Urea nitrogen [Mass/Vol] 52 mg/dL High 7-25 [facility] Comment on above: Order Comment: No: D o not add to previous draw Performed By: #### 1 69, 35952 #### [facility] [address] CBC W/DIFFon 04-16-2021 ABS IMM GRANS 0.0 10*3/uL Normal 0.0-0.2 [facility] Comment on above: Order Comment: No: D o not add to previous draw Performed By: #### 3 5200 #### [facility] [address] [place] [address], [facility] ABS NEUTROPHILS 5.9 10*3/uL Normal 1.6-7.6 [facility] Comment on above: Order Comment: No: D o not add to previous draw Performed By: #### 3 5200 #### [facility] [address] [place] [address], [facility] Basophils (Bld) [#/Vol] 0.0 10*3/uL Normal 0.0-0.2 [facility] Comment on above: Order Comment: No: D o not add to previous draw Performed By: #### 3 5200 #### [facility] [address] [place] [address], [facility] Basophils/100 WBC (Bld) 0.3 % Normal 0.0-1.0 [facility] Comment on above: Order Comment: No: D o not add to previous draw Performed By: #### 3 5200 #### [facility] [address] [place] [address], [facility] Eosinophils (Bld) [#/Vol] 0.4 10*3/uL Normal 0.0-0.5 [facility] Comment on above: Order Comment: No: D o not add to previous draw Performed By: #### 3 5200 #### [facility] [address] [place] [address], [facility] Eosinophils/100 WBC (Bld) 4.3 % Normal 0.0-6.0 [facility] Comment on above: Order Comment: No: D o not add to previous draw Performed By: #### 3 5200 #### [facility] [address] [place] [address], [facility] Erythrocyte distribution width (RBC) [Ratio] 16.1 % High 11.5-15.0 [facility] Comment on above: Order Comment: No: D o not add to previous draw Performed By: #### 3 5200 #### [facility] [address] [facility] [place] [id number], [facility] Hematocrit (Bld) [Volume fraction] 37.0 % Low 39.0-50.0 [facility] Comment on above: Order Comment: No: D o not add to previous draw Performed By: #### 3 5200 #### [facility] [address] [place] [address], [facility] Hemoglobin (Bld) [Mass/Vol] 11.4 g/dL Low 13.0-17.0 [facility] Comment on above: Order Comment: No: D o not add to previous draw Performed By: #### 3 5200 #### [facility] [address] [place] [address], [facility] IMMATURE GRANS 0.3 % Normal 0.0-1.0 [facility] Comment on above: Order Comment: No: D o not add to previous draw Performed By: #### 3 5200 #### [facility] [address] [facility] [place] [place] [address], [facility] Lymphocytes (Bld) [#/Vol] 1.8 10*3/uL Normal 1.2-4.0 [facility] Comment on above: Order Comment: No: D o not add to previous draw Performed By: #### 3 5200 #### [facility] [address] [place] [address], [facility] Lymphocytes/100 WBC (Bld) 20.7 % Normal 20.0-45.0 [facility] Comment on above: Order Comment: No: D o not add to previous draw Performed By: #### 3 5200 #### [facility] [address] [place] [address], [facility] MCH (RBC) [Entitic mass] 27.1 pg Normal 27.0-33.0 [facility] Comment on above: Order Comment: No: D o not add to previous draw Performed By: #### 3 5200 #### [facility] [address] [place] [address], [facility] MCHC (RBC) [Mass/Vol] 30.8 g/dL Low 32.0-35.0 [facility] Comment on above: Order Comment: No: D o not add to previous draw Performed By: #### 3 5200 #### [facility] [address] [place] [address], [facility] MCV (RBC) [Entitic vol] 88.1 fL Normal 82.0-98.0 [facility] Comment on above: Order Comment: No: D o not add to previous draw Performed By: #### 3 5200 #### [facility] [address] [place] [address], [facility] Monocytes (Bld) [#/Vol] 0.7 10*3/uL Normal 0.1-1.0 [facility] Comment on above: Order Comment: No: D o not add to previous draw Performed By: #### 3 5200 #### [facility] [address] [place] [address], [place] MONOS 7.9 % Normal 5.0-12.0 [facility] Comment on above: Order Comment: No: D o not add to previous draw Performed By: #### 3 5200 #### [facility] [address] [place] [address], [place] Neutrophils/100 WBC (Bld) 66.5 % Normal 40.0-72.0 [facility] Comment on above: Order Comment: No: D o not add to previous draw Performed By: #### 3 5200 #### [facility] [address] [place] [address], [place] Nucleated RBC/100 WBC (Bld) [Ratio] 0 % Normal 0-0 [facility] Comment on above: Order Comment: No: D o not add to previous draw Performed By: #### 3 5200 #### [facility] [address] [place] [address], [place] PLAT CNT 189 10*3/uL Normal 150-400 [facility] Comment on above: Order Comment: No: D o not add to previous draw Performed By: #### 3 5200 #### [facility] [address] [place] [address], [place] RBC (Bld) [#/Vol] 4.20 10*6/uL Normal 4.20-5.70 [facility] Comment on above: Order Comment: No: D o not add to previous draw Performed By: #### 3 5200 #### [facility] [address] [place] [address], [place] WBC (Bld) [#/Vol] 8.82 10*3/uL Normal 4.00-10.60 [facility] Comment on above: Order Comment: No: D o not add to previous draw Performed By: #### 3 5200 #### [facility] [address] [place] [address], [place] HEMOGLOBIN A1Con 04-16-2021 Glucose [Moles/Vol] 180 mmol/L Normal [facility] Comment on above: Order Comment: Yes: Add to Previous draw if able Performed By: #### 8 5499 #### [facility] [address] [place] [address], [place] HbA1c (Bld) [Mass fraction] 7.9 % High 4.0-6.0 [facility] Comment on above: Order Comment: Yes: Add to Previous draw if able Performed By: #### 8 5499 #### [facility] [address] [place] [address], [place] MAGNESIUM BLOODon 04-16-2021 Magnesium [Mass/Vol] 2.3 mg/dL Normal 1.9-2.7 [facility] Comment on above: Order Comment: No: D o not add to previous draw Performed By: #### 1 0070, [id number] #### [facility] [address] [place] [address], [place] POC GLUCOSE LABon 04-16-2021 Glucose [Mass/Vol] 357 mg/dL High 70-100 [facility] Comment on above: Performed By: #### 8 5499 #### [facility] [address] [place] [address], [place] Glucose [Mass/Vol] 149 mg/dL High 70-100 [facility] Comment on above: Performed By: #### 9 9909, 66104, 08553, 97215 #### [facility] [address] [place] [address], [place] Glucose [Mass/Vol] 243 mg/dL High 70-100 [facility] Comment on above: Performed By: #### 8 5499 #### [facility] [address] [place] [address], [place] Glucose [Mass/Vol] 181 mg/dL High 70-100 [facility] Comment on above: Performed By: #### 9 9909, 00248, 63070, 73909 #### [facility] [address] [place] [address], [facility] PROTHROMBIN TIMEon 1 INR Coag (PPP) [Relative time] 1.63 {INR} High 0.91-1.16 [facility] Comment on above: Order Comment: No: D [...] By: #### 3 5200 #### [facility] [address] [place] [address], [facility] PT Coag (PPP) [Time] 19.4 s High 12.3-14.8 [facility] Comment on above: Order Comment: No: D o not add to previous draw Result Comment: ALL RESULTS MUST BE INTERPRETED WITH RESPECT TO BLOOD DRAWING ARTIFACT OR DILUTION ERROR OF ANTICOAGULANT AT THE TIME OF SAMPLING. Performed By: #### 3 5200 #### [facility] [address] [place] [address], [facility] INR Coag (PPP) [Relative time] 1.66 {INR} High 0.91-1.16 [facility] Comment on above: Order Comment: No: D [...] By: #### 3 5200 #### [facility] [address] [place] [address], [facility] PT Coag (PPP) [Time] 19.7 s High 12.3-14.8 [facility] Comment on above: Order Comment: No: D o not add to previous draw Result Comment: ALL RESULTS MUST BE INTERPRETED WITH RESPECT TO BLOOD DRAWING ARTIFACT OR DILUTION ERROR OF ANTICOAGULANT AT THE TIME OF SAMPLING. Performed By: #### 3 5200 #### [facility] [address] [place] [address], [facility] BASIC METABOLIC PANELon 05 Calcium [Mass/Vol] 9.7 mg/dL Normal 8.6-10.3 [facility] Comment on above: Order Comment: No: D o not add to previous draw Performed By: #### 9 9909, 03951, 13986, 18261 #### [facility] [address] [place] [address], [facility] Chloride [Moles/Vol] 92 mmol/L Low 98-107 [facility] Comment on above: Order Comment: No: D o not add to previous draw Performed By: #### 9 9909, 50832, 18640, 32535 #### [facility] [address] [place] [address], [place] CO2 [Moles/Vol] 36 mmol/L High 21-31 [facility] Comment on above: Order Comment: No: D o not add to previous draw Performed By: #### 9 9909, 59236, 29418, 53085 #### [facility] [address] [place] [address], [facility] Creatinine [Mass/Vol] 1.86 mg/dL High 0.70-1.30 [facility] Comment on above: Order Comment: No: D o not add to previous draw Performed By: #### 9 9909, 01854, 14755, 37767 #### [facility] [address] [place] [address], [facility] eGFR- 44 ml/min/1.73sq m Abnormal >60 [facility] Comment on above: Order Comment: No: D o not add to previous draw Performed By: #### 9 9909, 51863, 24485, 84997 #### [facility] [address] [place] [address], [place] eGFR- non- 37 ml/min/1.73sq m Abnormal >60 [facility] Comment on above: Order Comment: No: D o not add to previous draw Performed By: #### 9 9909, 21362, 38363, 81817 #### [facility] [address] [place] [address], [place] Glucose [Mass/Vol] 167 mg/dL High 70-100 [facility] Comment on above: Order Comment: No: D o not add to previous draw Performed By: #### 9 9909, 57802, 09820, 65653 #### [facility] [address] [place] [address], [facility] Potassium [Moles/Vol] 4.0 mmol/L Normal 3.5-5.1 [facility] Comment on above: Order Comment: No: D o not add to previous draw Performed By: #### 9 9909, 53867, 70892, 20793 #### [facility] [address] [place] [address], [facility] Sodium [Moles/Vol] 138 mmol/L Normal 136-145 [facility] Comment on above: Order Comment: No: D o not add to previous draw Performed By: #### 9 9909, 04113, 95043, 50625 #### [facility] [address] Urea nitrogen [Mass/Vol] 44 mg/dL High 7-25 [facility] Comment on above: Order Comment: No: D o not add to previous draw Performed By: #### 9 9909, 87739, 98012, 81268 #### [facility] [address] [place] [address], [facility] CBC W/DIFFon 04-15-2021 ABS IMM GRANS 0.0 10*3/uL Normal 0.0-0.2 [facility] Comment on above: Order Comment: No: D o not add to previous draw Performed By: #### 3 8400 #### [facility] [address] [place] [address], [facility] ABS NEUTROPHILS 6.3 10*3/uL Normal 1.6-7.6 [facility] Comment on above: Order Comment: No: D o not add to previous draw Performed By: #### 3 5200 #### [facility] [address] [place] [id number], [facility] Basophils (Bld) [#/Vol] 0.0 10*3/uL Normal 0.0-0.2 [facility] Comment on above: Order Comment: No: D o not add to previous draw Performed By: #### 3 5200 #### [facility] [address] [place] [address], [facility] Basophils/100 WBC (Bld) 0.3 % Normal 0.0-1.0 [facility] Comment on above: Order Comment: No: D o not add to previous draw Performed By: #### 3 5200 #### [facility] [address] [place] [address], [place] Eosinophils (Bld) [#/Vol] 0.4 10*3/uL Normal 0.0-0.5 [facility] Comment on above: Order Comment: No: D o not add to previous draw Performed By: #### 3 5200 #### [facility] [address] [place] [address], [facility] Eosinophils/100 WBC (Bld) 4.5 % Normal 0.0-6.0 [facility] Comment on above: Order Comment: No: D o not add to previous draw Performed By: #### 3 5200 #### [facility] [address] [place] [address], [facility] Erythrocyte distribution width (RBC) [Ratio] 16.3 % High 11.5-15.0 [facility] Comment on above: Order Comment: No: D o not add to previous draw Performed By: #### 3 5200 #### [facility] [address] [place] [address], [facility] Hematocrit (Bld) [Volume fraction] 37.4 % Low 39.0-50.0 [facility] Comment on above: Order Comment: No: D o not add to previous draw Performed By: #### 3 5200 #### [facility] [address] [place] [address], [place] Hemoglobin (Bld) [Mass/Vol] 11.4 g/dL Low 13.0-17.0 [facility] Comment on above: Order Comment: No: D o not add to previous draw Performed By: #### 3 5200 #### [facility] [address] [place] [address], [facility] IMMATURE GRANS 0.3 % Normal 0.0-1.0 [facility] Comment on above: Order Comment: No: D o not add to previous draw Performed By: #### 3 5200 #### [facility] [address] [place] [address], [facility] Lymphocytes (Bld) [#/Vol] 1.8 10*3/uL Normal 1.2-4.0 [facility] Comment on above: Order Comment: No: D o not add to previous draw Performed By: #### 3 5200 #### [facility] [address] [place] [address], [facility] Lymphocytes/100 WBC (Bld) 19.1 % Low 20.0-45.0 [facility] Comment on above: Order Comment: No: D o not add to previous draw Performed By: #### 3 5200 #### [facility] [address] [place] [address], [facility] MCH (RBC) [Entitic mass] 27.2 pg Normal 27.0-33.0 [facility] Comment on above: Order Comment: No: D o not add to previous draw Performed By: #### 3 5200 #### [facility] [address] [place] [address], [facility] MCHC (RBC) [Mass/Vol] 30.5 g/dL Low 32.0-35.0 [facility] Comment on above: Order Comment: No: D o not add to previous draw Performed By: #### 3 5200 #### [facility] [address] [id number], [facility] MCV (RBC) [Entitic vol] 89.3 fL Normal 82.0-98.0 [facility] Comment on above: Order Comment: No: D o not add to previous draw Performed By: #### 3 5200 #### [facility] [address] [place] [address], [facility] Monocytes (Bld) [#/Vol] 0.7 10*3/uL Normal 0.1-1.0 [facility] Comment on above: Order Comment: No: D o not add to previous draw Performed By: #### 3 5200 #### [facility] [address] [place] [address], [facility] MONOS 7.4 % Normal 5.0-12.0 [facility] Comment on above: Order Comment: No: D o not add to previous draw Performed By: #### 3 5200 #### [facility] [address] [place] [address], [facility] Neutrophils/100 WBC (Bld) 68.4 % Normal 40.0-72.0 [facility] Comment on above: Order Comment: No: D o not add to previous draw Performed By: #### 3 5200 #### [facility] [address] [facility] [facility] [place] [address], [facility] Nucleated RBC/100 WBC (Bld) [Ratio] 0 % Normal 0-0 [facility] Comment on above: Order Comment: No: D o not add to previous draw Performed By: #### 3 5200 #### [facility] [address] [place] [address], [facility] PLAT CNT 177 10*3/uL Normal 150-400 [facility] Comment on above: Order Comment: No: D o not add to previous draw Performed By: #### 3 5200 #### [facility] [address] [place] [address], [facility] RBC (Bld) [#/Vol] 4.19 10*6/uL Low 4.20-5.70 [facility] Comment on above: Order Comment: No: D o not add to previous draw Performed By: #### 3 5200 #### [facility] [address] [place] [address], [place] WBC (Bld) [#/Vol] 9.21 10*3/uL Normal 4.00-10.60 [facility] Comment on above: Order Comment: No: D o not add to previous draw Performed By: #### 3 5200 #### [facility] [address] [place] [address], [place] MAGNESIUM BLOODon 04-15-2021 Magnesium [Mass/Vol] 2.3 mg/dL Normal 1.9-2.7 [facility] Comment on above: Order Comment: No: D o not add to previous draw Performed By: #### 9 9909, 45641, 62308, 21359 #### [facility] [address] [place] [address], [place] POC GLUCOSE LABon 04-15-2021 Glucose [Mass/Vol] 230 mg/dL High 70-100 [facility] Comment on above: Performed By: #### 8 5499 #### [facility] [address] [place] [address], [place] Glucose [Mass/Vol] 260 mg/dL High 70-100 [facility] Comment on above: Performed By: #### 8 5499 #### [facility] [address] [place] [address], [place] Glucose [Mass/Vol] 273 mg/dL High 70-100 [facility] Comment on above: Performed By: #### 9 9909, 50470, 13663, 72174 #### [facility] [address] [place] [address], [place] Glucose [Mass/Vol] 168 mg/dL High 70-100 [facility] Comment on above: Performed By: #### 8 5499 #### [facility] [address] [place] [address], [place] PROTHROMBIN TIMEon INR Coag (PPP) [Relative time] 1.77 {INR} High 0.91-1.16 [facility] Comment on above: Order Comment: No: D o not add to previous draw Result Comment: [facility] P RECOMMENDED INR FOR WARFARIN [...] By: #### 3 5200 #### [facility] [address] [place] [address], [facility] PT Coag (PPP) [Time] 20.7 s High 12.3-14.8 [facility] Comment on above: Order Comment: No: D o not add to previous draw Result Comment: ALL RESULTS MUST BE INTERPRETED WITH RESPECT TO BLOOD DRAWING ARTIFACT OR DILUTION ERROR OF ANTICOAGULANT AT THE TIME OF SAMPLING. Performed By: #### 3 5200 #### [facility] [address] [place] [address], [place] INR Coag (PPP) [Relative time] 1.80 {INR} High 0.91-1.16 [facility] Comment on above: Order Comment: Unkno wn Result Comment: [facility] P RECOMMENDED INR FOR [...] By: #### 8 5499 #### [facility] [address] [facility] PT Coag (PPP) [Time] 21.0 s High 12.3-14.8 [facility] Comment on above: Order Comment: Unkno wn Result Comment: ALL RESULTS MUST BE INTERPRETED WITH RESPECT TO BLOOD DRAWING ARTIFACT OR DILUTION ERROR OF ANTICOAGULANT AT THE TIME OF SAMPLING. Performed By: #### 8 5499 #### [facility] [address] [place] [address], [facility] BASIC METABOLIC PANELon 05-2 Calcium [Mass/Vol] 9.4 mg/dL Normal 8.6-10.3 [facility] Comment on above: Order Comment: No: D o not add to previous draw Performed By: #### 8 5499 #### [facility] [address] [place] [address], [facility] Chloride [Moles/Vol] 95 mmol/L Low 98-107 [facility] Comment on above: Order Comment: No: D o not add to previous draw Performed By: #### 8 5499 #### [facility] [address] [place] [address], [facility] CO2 [Moles/Vol] 35 mmol/L High 21-31 [facility] Comment on above: Order Comment: No: D o not add to previous draw Performed By: #### 8 5499 #### [facility] [address] [place] [address], [place] Creatinine [Mass/Vol] 1.77 mg/dL High 0.70-1.30 [facility] Comment on above: Order Comment: No: D o not add to previous draw Performed By: #### 8 5499 #### [facility] [address] [place] [address], [place] eGFR- 47 ml/min/1.73sq m Abnormal >60 [facility] Comment on above: Order Comment: No: D o not add to previous draw Performed By: #### 8 5499 #### [facility] [address] [place] [address], [place] eGFR- non- 39 ml/min/1.73sq m Abnormal >60 [facility] Comment on above: Order Comment: No: D o not add to previous draw Performed By: #### 8 5499 #### [facility] [address] [place] [address], [place] Glucose [Mass/Vol] 135 mg/dL High 70-100 [facility] Comment on above: Order Comment: No: D o not add to previous draw Performed By: #### 8 5499 #### [facility] [address] [place] [address], [place] Potassium [Moles/Vol] 3.7 mmol/L Normal 3.5-5.1 [facility] Comment on above: Order Comment: No: D o not add to previous draw Performed By: #### 8 5499 #### [facility] [address] [place] [address], [place] Sodium [Moles/Vol] 140 mmol/L Normal 136-145 [facility] Comment on above: Order Comment: No: D o not add to previous draw Performed By: #### 8 5499 #### [facility] [address] [place] [address], [facility] Urea nitrogen [Mass/Vol] 43 mg/dL High 7-25 [facility] Comment on above: Order Comment: No: D o not add to previous draw Performed By: #### 8 5499 #### [facility] [address] [place] [address], [facility] CBC W/DIFFon 04-14-2021 ABS IMM GRANS 0.0 10*3/uL Normal 0.0-0.2 [facility] Comment on above: Order Comment: No: D o not add to previous draw Performed By: #### 8 5499 #### [facility] [address] [facility] ABS NEUTROPHILS 6.4 10*3/uL Normal 1.6-7.6 [facility] Comment on above: Order Comment: No: D o not add to previous draw Performed By: #### 8 5499 #### [facility] [address] [place] [address], [facility] Basophils (Bld) [#/Vol] 0.0 10*3/uL Normal 0.0-0.2 [facility] Comment on above: Order Comment: No: D o not add to previous draw Performed By: #### 8 5499 #### [facility] [address] [facility] [place] [address], [facility] Basophils/100 WBC (Bld) 0.3 % Normal 0.0-1.0 [facility] Comment on above: Order Comment: No: D o not add to previous draw Performed By: #### 8 [id number] #### [facility] [address] [place] [address], [facility] Eosinophils (Bld) [#/Vol] 0.4 10*3/uL Normal 0.0-0.5 [facility] Comment on above: Order Comment: No: D o not add to previous draw Performed By: #### 8 [id number] #### [facility] [address] [place] [address], [facility] Eosinophils/100 WBC (Bld) 4.0 % Normal 0.0-6.0 [facility] Comment on above: Order Comment: No: D o not add to previous draw Performed By: #### 8 [id number] #### [facility] [address] Erythrocyte distribution width (RBC) [Ratio] 16.6 % High 11.5-15.0 [facility] Comment on above: Order Comment: No: D o not add to previous draw Performed By: #### 8 [id number] #### [facility] [address] Hematocrit (Bld) [Volume fraction] 35.5 % Low 39.0-50.0 [facility] Comment on above: Order Comment: No: D o not add to previous draw Performed By: #### 8 [id number] #### [facility] [address] [facility] Hemoglobin (Bld) [Mass/Vol] 10.9 g/dL Low 13.0-17.0 [facility] Comment on above: Order Comment: No: D o not add to previous draw Performed By: #### 8 [id number] #### [facility] [address] [facility] [place] [address], [facility] IMMATURE GRANS 0.3 % Normal 0.0-1.0 [facility] Comment on above: Order Comment: No: D o not add to previous draw Performed By: #### 8 [id number] #### [facility] [address] [place] [address], [facility] Lymphocytes (Bld) [#/Vol] 1.6 10*3/uL Normal 1.2-4.0 [facility] Comment on above: Order Comment: No: D o not add to previous draw Performed By: #### 8 [id number] #### [facility] [address] [place] [address], [facility] Lymphocytes/100 WBC (Bld) 17.3 % Low 20.0-45.0 [facility] Comment on above: Order Comment: No: D o not add to previous draw Performed By: #### 8 [id number] #### [facility] [address] [facility] [place] [id number], [facility] MCH (RBC) [Entitic mass] 27.0 pg Normal 27.0-33.0 [facility] System Comment on above: Order Comment: No: D o not add to previous draw Performed By: #### 8 [id number] #### [facility] [address] [facility] [place] [address], [facility] MCHC (RBC) [Mass/Vol] 30.7 g/dL Low 32.0-35.0 [facility] Comment on above: Order Comment: No: D o not add to previous draw Performed By: #### 8 [id number] #### [facility] [address] [facility] [place] [address], [facility] MCV (RBC) [Entitic vol] 88.1 fL Normal 82.0-98.0 [facility] Comment on above: Order Comment: No: D o not add to previous draw Performed By: #### 8 [id number] #### [facility] [address] [facility] [place] [address], [facility] Monocytes (Bld) [#/Vol] 0.7 10*3/uL Normal 0.1-1.0 [facility] Comment on above: Order Comment: No: D o not add to previous draw Performed By: #### 8 [id number] #### [facility] [address] [place] [id number], [facility] MONOS 7.6 % Normal 5.0-12.0 [facility] Comment on above: Order Comment: No: D o not add to previous draw Performed By: #### 8 [id number] #### [facility] [address] [place] [address], [facility] Neutrophils/100 WBC (Bld) 70.5 % Normal 40.0-72.0 [facility] Comment on above: Order Comment: No: D o not add to previous draw Performed By: #### 8 [id number] #### [facility] [address] [place] [address], [facility] Nucleated RBC/100 WBC (Bld) [Ratio] 0 % Normal 0-0 [facility] Comment on above: Order Comment: No: D o not add to previous draw Performed By: #### 8 [id number] #### [facility] [address] [place] [address], [facility] PLAT CNT 157 10*3/uL Normal 150-400 [facility] Comment on above: Order Comment: No: D o not add to previous draw Performed By: #### 8 [id number] #### [facility] [address] [place] [address], [facility] RBC (Bld) [#/Vol] 4.03 10*6/uL Low 4.20-5.70 [facility] Comment on above: Order Comment: No: D o not add to previous draw Performed By: #### 8 [id number] #### [facility] [address] [facility] [place] [id number], [facility] WBC (Bld) [#/Vol] 9.10 10*3/uL Normal 4.00-10.60 [facility] Comment on above: Order Comment: No: D o not add to previous draw Performed By: #### 8 [id number] #### [facility] [address] [facility] [place] [id number], [facility] DIGOXINon 04-14-2021 Digoxin [Mass/Vol] 1.0 ng/mL Normal 0.7-2.0 [facility] Comment on above: Order Comment: Yes: Add to Previous draw if able Performed By: #### 8 [id number] #### [facility] [address] [place] [address], [facility] MAGNESIUM BLOODon 04-14-2021 Magnesium [Mass/Vol] 2.2 mg/dL Normal 1.9-2.7 [facility] Comment on above: Order Comment: No: D o not add to previous draw Performed By: #### 8 [id number] #### [facility] [address] [place] [address], [facility] POC GLUCOSE LABon 04-14-2021 Glucose [Mass/Vol] 194 mg/dL High 70-100 [facility] Comment on above: Performed By: #### 8 [id number] #### [facility] [address] [place] [address], [facility] Glucose [Mass/Vol] 188 mg/dL High 70-100 [facility] Comment on above: Performed By: #### 9 9909, 53269, 68100, 50757 #### [facility] [address] [place] [address], [facility] Glucose [Mass/Vol] 130 mg/dL High 70-100 [facility] Comment on above: Performed By: #### 9 9909, 60407, 60532, 65437 #### [facility] [address] [place] [address], [facility] PROTHROMBIN TIMEon INR Coag (PPP) [Relative time] 1.92 {INR} High 0.91-1.16 [facility] Comment on above: Order Comment: No: D [...] CHEST 1995;108:231S-246S. Performed By: #### 9 9909, 59006, 16917, 58943 #### [facility] [address] [place] [address], [facility] PT Coag (PPP) [Time] 22.1 s High 12.3-14.8 [facility] Comment on above: Order Comment: No: D o not add to previous draw Result Comment: ALL RESULTS MUST BE INTERPRETED WITH RESPECT TO BLOOD DRAWING ARTIFACT OR DILUTION ERROR OF ANTICOAGULANT AT THE TIME OF SAMPLING. Performed By: #### 9 9909, 77098, 38764, 65812 #### [facility] [address] [place] [address], [facility] INR Coag (PPP) [Relative time] 1.83 {INR} High 0.91-1.16 [facility] Comment on above: Order Comment: No: D [...] By: #### 3 5200 #### [facility] [address] [place] [id number], [facility] PT Coag (PPP) [Time] 21.2 s High 12.3-14.8 [facility] Comment on above: Order Comment: No: D o not add to previous draw Result Comment: ALL RESULTS MUST BE INTERPRETED WITH RESPECT TO BLOOD DRAWING ARTIFACT OR DILUTION ERROR OF ANTICOAGULANT AT THE TIME OF SAMPLING. Performed By: #### 3 5200 #### [facility] [address] [place] [address], [facility] BASIC METABOLIC PANELon 05-2 Calcium [Mass/Vol] 8.5 mg/dL Low 8.6-10.3 [facility] Comment on above: Order Comment: No: D o not add to previous draw Performed By: #### 9 9909, 50662, 45060, 29723 #### [facility] [address] [place] [address], [facility] Chloride [Moles/Vol] 98 mmol/L Normal 98-107 [facility] Comment on above: Order Comment: No: D o not add to previous draw Performed By: #### 9 9909, 25706, 84719, 99830 #### [facility] [address] [place] [address], [place] CO2 [Moles/Vol] 32 mmol/L High 21-31 [facility] Comment on above: Order Comment: No: D o not add to previous draw Performed By: #### 9 9909, 27821, 30826, 84781 #### [facility] [address] [place] [address], [place] Creatinine [Mass/Vol] 1.77 mg/dL High 0.70-1.30 [facility] Comment on above: Order Comment: No: D o not add to previous draw Performed By: #### 9 9909, 35730, 91090, 98674 #### [facility] [address] [place] [address], [place] eGFR- 47 ml/min/1.73sq m Abnormal >60 [facility] Comment on above: Order Comment: No: D o not add to previous draw Performed By: #### 9 9909, 35884, 75974, 88471 #### [facility] [address] [place] [address], [place] eGFR- non- 39 ml/min/1.73sq m Abnormal >60 [facility] Comment on above: Order Comment: No: D o not add to previous draw Performed By: #### 9 9909, 24334, 15115, 10596 #### [facility] [address] [place] [address], [place] Glucose [Mass/Vol] 129 mg/dL High 70-100 [facility] Comment on above: Order Comment: No: D o not add to previous draw Performed By: #### 9 9909, 49507, 81342, 65643 #### [facility] [address] [place] [address], [place] Potassium [Moles/Vol] 3.8 mmol/L Normal 3.5-5.1 [facility] Comment on above: Order Comment: No: D o not add to previous draw Performed By: #### 9 9909, 88510, 04224, 97309 #### [facility] [address] [place] [address], [place] Sodium [Moles/Vol] 138 mmol/L Normal 136-145 [facility] Comment on above: Order Comment: No: D o not add to previous draw Performed By: #### 9 9909, 56410, 10868, 98244 #### [facility] [address] [place] [address], [place] Urea nitrogen [Mass/Vol] 39 mg/dL High 7-25 [facility] Comment on above: Order Comment: No: D o not add to previous draw Performed By: #### 9 9909, 24420, 00095, 08689 #### [facility] [address] [place] [address], [facility] CBC COMPLETE BLOOD COUNTon 04-13-2021 Erythrocyte distribution width (RBC) [Ratio] 16.8 % High 11.5-15.0 [facility] Comment on above: Order Comment: No: D o not add to previous draw Performed By: #### 8 [id number] #### [facility] [address] [place] [address], [facility] Hematocrit (Bld) [Volume fraction] 33.7 % Low 39.0-50.0 [facility] Comment on above: Order Comment: No: D o not add to previous draw Performed By: #### 8 [id number] #### [facility] [address] [place] [address], [facility] Hemoglobin (Bld) [Mass/Vol] 10.2 g/dL Low 13.0-17.0 [facility] Comment on above: Order Comment: No: D o not add to previous draw Performed By: #### 8 [id number] #### [facility] [address] [place] [address], [place] MCH (RBC) [Entitic mass] 27.1 pg Normal 27.0-33.0 [facility] Comment on above: Order Comment: No: D o not add to previous draw Performed By: #### 8 [id number] #### [facility] [address] [place] [address], [place] MCHC (RBC) [Mass/Vol] 30.3 g/dL Low 32.0-35.0 [facility] Comment on above: Order Comment: No: D o not add to previous draw Performed By: #### 8 [id number] #### [facility] [address] [place] [address], [facility] MCV (RBC) [Entitic vol] 89.6 fL Normal 82.0-98.0 [facility] Comment on above: Order Comment: No: D o not add to previous draw Performed By: #### 8 [id number] #### [facility] [address] [place] [address], [facility] Nucleated RBC/100 WBC (Bld) [Ratio] 0 % Normal 0-0 [facility] Comment on above: Order Comment: No: D o not add to previous draw Performed By: #### 8 [id number] #### [facility] [address] [facility] [place] [address], [facility] PLAT CNT 131 10*3/uL Low 150-400 [facility] Comment on above: Order Comment: No: D o not add to previous draw Performed By: #### 8 [id number] #### [facility] [address] [place] [address], [facility] RBC (Bld) [#/Vol] 3.76 10*6/uL Low 4.20-5.70 [facility] Comment on above: Order Comment: No: D o not add to previous draw Performed By: #### 8 [id number] #### [facility] [address] [place] [address], [facility] WBC (Bld) [#/Vol] 11.41 10*3/uL High 4.00-10.60 [facility] Comment on above: Order Comment: No: D o not add to previous draw Performed By: #### 8 [id number] #### [facility] [address] [place] [id number], [facility] MAGNESIUM BLOODon 04-13-2021 Magnesium [Mass/Vol] 2.3 mg/dL Normal 1.9-2.7 [facility] Comment on above: Order Comment: No: D o not add to previous draw Performed By: #### 9 9909, 35141, 63967, 02025 #### [facility] [address] [place] [address], [place] POC GLUCOSE LABon 04-13-2021 Glucose [Mass/Vol] 210 mg/dL High 70-100 [facility] Comment on above: Performed By: #### 8 [id number] #### [facility] [address] [place] [address], [place] Glucose [Mass/Vol] 90 mg/dL Normal 70-100 [facility] Comment on above: Performed By: #### 9 9909, 66490, 49603, 15939 #### [facility] [address] [place] [address], [place] Glucose [Mass/Vol] 104 mg/dL High 70-100 [facility] Comment on above: Performed By: #### 8 [id number] #### [facility] [address] [place] [address], [place] Glucose [Mass/Vol] 77 mg/dL Normal 70-100 [facility] Comment on above: Performed By: #### 9 9909, 88275, 50450, 85000 #### [facility] [address] [place] [address], [place] Glucose [Mass/Vol] 113 mg/dL High 70-100 [facility] Comment on above: Performed By: #### 9 9909, 27012, 50944, 87381 #### [facility] [address] [place] [address], [place] PROTHROMBIN TIMEon INR Coag (PPP) [Relative time] 2.19 {INR} High 0.91-1.16 [facility] Comment on above: Order Comment: No: D [...] 1995;108:231S-246S. Performed By: #### 3 5200 #### [address] PT Coag (PPP) [Time] 24.5 s High 12.3-14.8 [facility] Comment on above: Order Comment: No: D o not add to previous draw Result Comment: ALL RESULTS MUST BE INTERPRETED WITH RESPECT TO BLOOD DRAWING ARTIFACT OR DILUTION ERROR OF ANTICOAGULANT AT THE TIME OF SAMPLING. Performed By: #### 3 5200 #### [address] TROPONIN-Ion 04-13-2021 Troponin I.cardiac [Mass/Vol] 0.05 ng/mL High 0.00-0.04 [facility] Comment on above: Order Comment: No: D o not add to previous draw Result Comment: REFE RENCE RANGES: 0.00 - 0.04 ng/ml NORMAL 0.05 - 0.50 ng/ml INDETERMINATE > 0.50 ng/ml CONSISTENT WITH AN M.I. Performed By: #### 3 5200 #### [address] US ABDOMEN LIMITED FOR ASCIT ESon 04-13-2021 US ABDOMEN LIMITED FOR ASCITES [facility] Department of Radiology [address] [place] [id number] Patient Name: ADWOA PORTER : 1955 Sex: M Age: Race: White Pt. Location: [address] [place] [address] Patient Status: I Ordered Date: 04/13/2021 3:45:00 [...] reports Electronically signed: Shannon Weathers. Transcribed by: [email or web address], User Resident: BIANCA NICOLE Electronically Signed by: SHANNON WEATHERS @ 04/13/2021 04:07 PM I personally read this/these film(s) with this resident Normal [facility] Comment on above: Order Comment: No: D o not add to previous draw *BLOOD CULTUREon 04-12-2021 *BLOOD CULTURE Clinical Report: (D) Specimen: BLOOD CULTURE Collected: 04/12/2021 20:24 Status: Final Last Updated: 04/18/2021 07:10 (1) Right AC 2019 CULT RES (Final) No Growth Day 5 Normal [facility] Comment on above: Order Comment: Right AC 2019 Performed By: #### 8 [id number] #### [facility] [address] *BLOOD CULTURE Clinical Report: (D) Specimen: BLOOD CULTURE Collected: 04/12/2021 20:24 Status: Final Last Updated: 04/18/2021 07:10 (1) Left AC 2021 CULT RES (Final) No Growth Day 5 Normal [facility] Comment on above: Order Comment: Left AC 2021 Performed By: #### 8 [id number] #### [facility] [address] BNP (B-TYPE NATRIURETIC PEPT JJ)on 04-12-2021 Natriuretic peptide B (Bld) [Mass/Vol] 502 pg/mL High 0-100 [facility] Comment on above: Order Comment: No: D o not add to previous draw Result Comment: Give n the appropriate clinical setting a BNP result of >100 pg/mL indicates congestive heart failure. Performed By: #### 9 9909, 66630, 18492, 53926 #### [facility] [address] CBC W/DIFFon 04-12-2021 ABS IMM GRANS 0.1 10*3/uL Normal 0.0-0.2 [facility] Comment on above: Performed By: #### 8 [id number] #### [facility] [address] ABS NEUTROPHILS 10.5 10*3/uL High 1.6-7.6 [facility] Comment on above: Performed By: #### 8 [id number] #### [facility] [address] [place] [address], [facility] Basophils (Bld) [#/Vol] 0.0 10*3/uL Normal 0.0-0.2 [facility] Comment on above: Performed By: #### 8 [id number] #### [facility] [address] Basophils/100 WBC (Bld) 0.2 % Normal 0.0-1.0 [facility] Comment on above: Performed By: #### 8 [id number] #### [facility] [address] [place] [address], [facility] Eosinophils (Bld) [#/Vol] 0.3 10*3/uL Normal 0.0-0.5 [facility] Comment on above: Performed By: #### 8 [id number] #### [facility] [address] [place] [address], [facility] Eosinophils/100 WBC (Bld) 2.1 % Normal 0.0-6.0 [facility] Comment on above: Performed By: #### 8 [id number] #### [facility] [address] [facility] Erythrocyte distribution width (RBC) [Ratio] 17.1 % High 11.5-15.0 [facility] Comment on above: Performed By: #### 8 [id number] #### [facility] [address] [facility] [address] Hematocrit (Bld) [Volume fraction] 34.8 % Low 39.0-50.0 [facility] Comment on above: Performed By: #### 8 [id number] #### [facility] [address] [facility] Hemoglobin (Bld) [Mass/Vol] 10.6 g/dL Low 13.0-17.0 [facility] Comment on above: Performed By: #### 8 [id number] #### [facility] [address] [place] [address], [facility] IMMATURE GRANS 0.4 % Normal 0.0-1.0 [facility] Comment on above: Performed By: #### 8 [id number] #### [facility] [address] [facility] [place] [address], [facility] Lymphocytes (Bld) [#/Vol] 1.4 10*3/uL Normal 1.2-4.0 [facility] Comment on above: Performed By: #### 8 [id number] #### [facility] [address] [facility] [place] [address], [facility] Lymphocytes/100 WBC (Bld) 10.5 % Low 20.0-45.0 [facility] Comment on above: Performed By: #### 8 [id number] #### [facility] [address] [facility] [place] [address], [facility] MCH (RBC) [Entitic mass] 27.3 pg Normal 27.0-33.0 [facility] Comment on above: Performed By: #### 8 [id number] #### [facility] [address] [facility] [address] MCHC (RBC) [Mass/Vol] 30.5 g/dL Low 32.0-35.0 [facility] Comment on above: Performed By: #### 8 [id number] #### [facility] [address] [place] [address], [facility] MCV (RBC) [Entitic vol] 89.7 fL Normal 82.0-98.0 [facility] Comment on above: Performed By: #### 8 [id number] #### [facility] [address] [place] [address], [facility] Monocytes (Bld) [#/Vol] 0.8 10*3/uL Normal 0.1-1.0 [facility] Comment on above: Performed By: #### 8 [id number] #### [facility] [address] [place] [address], [facility] MONOS 6.4 % Normal 5.0-12.0 [facility] Comment on above: Performed By: #### 8 [id number] #### [facility] [address] [facility] [place] [address], [facility] Neutrophils/100 WBC (Bld) 80.4 % High 40.0-72.0 [facility] Comment on above: Performed By: #### 8 [id number] #### [facility] [address] Nucleated RBC/100 WBC (Bld) [Ratio] 0 % Normal 0-0 [facility] Comment on above: Performed By: #### 8 [id number] #### [facility] [address] [place] [address], [facility] PLAT CNT 138 10*3/uL Low 150-400 [facility] Comment on above: Performed By: #### 8 [id number] #### [facility] [address] [facility] [place] [address] RBC (Bld) [#/Vol] 3.88 10*6/uL Low 4.20-5.70 [facility] Comment on above: Performed By: #### 8 [id number] #### [facility] [address] [facility] [place] [address], [facility] WBC (Bld) [#/Vol] 13.05 10*3/uL High 4.00-10.60 [facility] Comment on above: Performed By: #### 8 [id number] #### [facility] [address] [place] [address], [facility] LIVER BATTERYon 04-12-2021 Albumin [Mass/Vol] 3.8 g/dL Normal 3.5-5.7 [facility] Comment on above: Order Comment: No: D o not add to previous draw Performed By: #### 9 9909, 13310, 98528, 06224 #### [facility] [address] [place] [address], [facility] ALKALINE PHOSPH 80 IU/L Normal 34-104 [facility] Comment on above: Order Comment: No: D o not add to previous draw Performed By: #### 9 9909, 52454, 42329, 67504 #### [facility] [address] [place] [address], [place] ALT [Catalytic activity/Vol] 10 U/L Normal 7-52 [facility] Comment on above: Order Comment: No: D o not add to previous draw Performed By: #### 9 9909, 89721, 12422, 45860 #### [facility] [address] [place] [address], [place] AST [Catalytic activity/Vol] 15 U/L Normal 13-39 [facility] Comment on above: Order Comment: No: D o not add to previous draw Performed By: #### 9 9909, 36072, 35482, 96402 #### [facility] [address] [place] [address], [place] Bilirubin [Mass/Vol] 1.0 mg/dL Normal 0.3-1.0 [facility] Comment on above: Order Comment: No: D o not add to previous draw Performed By: #### 9 9909, 67675, 20833, 27853 #### [facility] [address] [place] [address], [place] Bilirubin.direct [Mass/Vol] 0.5 mg/dL High 0.0-0.2 [facility] Comment on above: Order Comment: No: D o not add to previous draw Performed By: #### 9 9909, 94220, 73293, 05140 #### [facility] [address] [place] [address], [place] Protein [Mass/Vol] 7.2 g/dL Normal 6.0-8.3 [facility] Comment on above: Order Comment: No: D o not add to previous draw Performed By: #### 9 [id number], [id number] #### [facility] [address] [place] [address], [place] MAGNESIUM BLOODon 04-12-2021 Magnesium [Mass/Vol] 2.5 mg/dL Normal 1.9-2.7 [facility] Comment on above: Order Comment: No: D o not add to previous draw Performed By: #### 9 [id number], [id number], [id number], [id number] #### [facility] [address] [place] [address], [facility] PHOSPHORUS BLOODon Phosphate [Mass/Vol] 3.7 mg/dL Normal 2.5-5.0 [facility] Comment on above: Order Comment: No: D o not add to previous draw Performed By: #### 9 [id number], [id number], [id number], [id number] #### [facility] [address] [place] [address], [facility] POC GLUCOSE LABon 04-12-2021 Glucose [Mass/Vol] 190 mg/dL High 70-100 [facility] Comment on above: Performed By: #### 8 [id number] #### [facility] [address] [place] [address], [place] Glucose [Mass/Vol] 117 mg/dL High 70-100 [facility] Comment on above: Performed By: #### 8 [id number] #### [facility] [address] [place] [address], [facility] PORTABLE CHEST 1 VIEWon 03-20 PORTABLE CHEST 1 VIEW [facility] Department of Radiology [address] [place] [id number] Patient Name: ADWOA PORTER : 1955 Sex: M Age: Race: White Pt. Location: [id number] Patient Status: I Ordered Date: 04/12/2021 4:55:00 [...] edema. Electronically signed: Michaelle Villalba. Transcribed by: [email or web address], User Resident: Electronically Signed by: MICHAELLE VILLALBA @ 04/12/2021 05:27 PM Normal [facility] Comment on above: Order Comment: evalu ate for Pulmonary Edema PROTHROMBIN TIMEon INR Coag (PPP) [Relative time] 2.58 {INR} High 0.91-1.16 [facility] Comment on above: Order Comment: No: D [...] By: #### 3 [id number] #### [facility] [address] PT Coag (PPP) [Time] 27.9 s High 12.3-14.8 [facility] Comment on above: Order Comment: No: D o not add to previous draw Result Comment: ALL RESULTS MUST BE INTERPRETED WITH RESPECT TO BLOOD DRAWING ARTIFACT OR DILUTION ERROR OF ANTICOAGULANT AT THE TIME OF SAMPLING. Performed By: #### 3 [id number] #### [facility] [address] TROPONIN-Ion 04-12-2021 Troponin I.cardiac [Mass/Vol] 0.05 ng/mL High 0.00-0.04 [facility] Comment on above: Order Comment: No: D o not add to previous draw Result Comment: REFE RENCE RANGES: 0.00 - 0.04 ng/ml NORMAL 0.05 - 0.50 ng/ml INDETERMINATE > 0.50 ng/ml CONSISTENT WITH AN M.I. Performed By: #### 9 [id number], [id number], [id number], [id number] #### [facility] [address] Provider Letteron 11-16-2020 Provider Letter (Inserted Image. Radha ble to display) November 16, 2020 ADWOA PORTER [address] [place] [phone] ADWOA PORTER 1955 Dear Adwoa, You missed [...] [facility] [address], [place] [address] Normal [facility] Coding Summary.on 04-05-2020 Coding Summary. CODING DATE: [address] [facility] DSC STATUS: Home (Routine DC) PAYOR: Medicare [...] CphT Date Saved: 04/05/2020 10:26 am Normal [facility] Aerobic cultureon 12-04-2019 Aerobic Culture Staphylococcus aureus [facility] Aerobic Culture Klebsiella oxytoca F [facility] Transfusion reaction panel ( ABO, Rh)on 12-04-2019 Microscopic observation Gram stain Nom (Unsp spec) [facility] Vital Signs Date Time Vital Sign Value Performing Clinician Facility 02-05-2024 16:00-0400 Body temperature 97.2 [degF] DO Vinnie Stewart Work Phone: [facility] 02-05-2024 16:00-0400 Diastolic blood pressure 80 mm[Hg] DO Vinnie Stewart Work Phone: [facility] 02-05-2024 16:00-0400 Heart rate 85 /min DO Vinnie Stewart Work Phone: [facility] 02-05-2024 16:00-0400 Respiratory rate 18 /min DO Vinnie Stewart Work Phone: [facility] 02-05-2024 16:00-0400 SaO2% (BldA) [Mass fraction] 100 % DO Vinnie Stewart Work Phone: [facility] 02-05-2024 16:00-0400 Systolic blood pressure 138 mm[Hg] DO Vinnie Stewart Work Phone: [facility] 02-05-2024 08:45-0400 Inhaled oxygen flow rate 2 L/min DO Vinnie Stewart Work Phone: [facility] 02-05-2024 06:00-0400 Body weight 95.4 kg DO Vinnie Stewart Work Phone: [facility] 02-04-2024 16:40-0400 Body height 175.26 cm DO Vinnie Stewart Work Phone: [facility] 02-01-2024 11:52-0400 Inhaled oxygen concentration 10 % DO Vinnie Stewart Work Phone: [facility] 11-22-2023 15:15-0500 Body height 170.18 cm Vinnie Stewart Other [facility] 11-22-2023 15:15-0500 Body mass index (BMI) [Ratio] 29.6 kg/m2 Vinnie Stewart Other [employer] [facility] [employer] Other 11-22-2023 15:15-0500 Body temperature 97.9 [degF] Vinnie Stewart Other [employer] [facility] [employer] Other 11-22-2023 15:15-0500 Body weight 85.73 kg Vinnie Stewart Other [employer] [facility] [employer] Other 11-22-2023 15:15-0500 Body weight 85.72 kg DO Vinnie Stewart Work Phone: [facility] 11-22-2023 15:15-0500 Diastolic blood pressure 60 mm[Hg] Vinnie Stewart Other [facility] 11-22-2023 15:15-0500 Respiratory rate 18 /min Vinnie Stewart Other [employer] Other 11-22-2023 15:15-0500 SaO2% (BldA) [Mass fraction] 98 % Vinnie Stewart Other [employer] Other 11-22-2023 15:15-0500 Systolic blood pressure 122 mm[Hg] Vinnie Stewart Other [facility] 11-15-2023 13:40-0500 Body height 170.18 cm Simba Jac Other [facility] 11-15-2023 13:40-0500 Body mass index (BMI) [Ratio] 28.94 kg/m2 Simba Jac Other [employer] [facility] [employer] Other 11-15-2023 13:40-0500 Body temperature 96.4 [degF] Simba Jac Other [employer] Other 11-15-2023 13:40-0500 Body weight 83.83 kg Simba Jac Other [employer] Other 11-15-2023 13:40-0500 Body weight 83.82 kg DO Vinnie Stewart Work Phone: [facility] 11-15-2023 13:40-0500 Diastolic blood pressure 62 mm[Hg] Simba Jac Other [facility] 11-15-2023 13:40-0500 Respiratory rate 18 /min Simba Jac Other [employer] Other 11-15-2023 13:40-0500 SaO2% (BldA) [Mass fraction] 92 % Simba Jac Other [employer] Other 11-15-2023 13:40-0500 Systolic blood pressure 110 mm[Hg] Simba Jac Other [facility] 11-13-2023 13:30-0500 Body height 170.18 cm Brittnee Scally Other [facility] 11-13-2023 13:30-0500 Body mass index (BMI) [Ratio] 28.94 kg/m2 Brittnee Scally Other [facility] [employer] Other 11-13-2023 13:30-0500 Body weight 83.83 kg Brittnee Scally Other [facility] [employer] Other 11-13-2023 13:30-0500 Body weight 83.82 kg DO Vinnie Lucsaley Work Phone: [facility] 11-13-2023 13:30-0500 Diastolic blood pressure 63 mm[Hg] Brittnee Scally Other [facility] 11-13-2023 13:30-0500 Respiratory rate 18 /min Brittnee Scally Other [employer] Other 11-13-2023 13:30-0500 SaO2% (BldA) [Mass fraction] 95 % Brittnee Scally Other [employer] Other 11-13-2023 13:30-0500 Systolic blood pressure 107 mm[Hg] Brittnee Scally Other [facility] 10-08-2023 10:00-0500 Body height 170.18 cm Brittnee Scally Other [facility] 10-08-2023 10:00-0500 Body mass index (BMI) [Ratio] 30.57 kg/m2 Brittnee Scally Other [employer] Other 10-08-2023 10:00-0500 Body weight 88.54 kg Brittnee Scally Other [facility] 09-18-2023 15:00-0400 Body height 170.18 cm Brittnee Scally Other [employer] Other 09-18-2023 15:00-0400 Diastolic blood pressure 72 mm[Hg] Brittnee Scally Other [employer] Other 09-18-2023 15:00-0400 Respiratory rate 18 /min Brittnee Scally Other [employer] Other 09-18-2023 15:00-0400 SaO2% (BldA) [Mass fraction] 96 % Brittnee Scally Other [employer] Other 09-18-2023 15:00-0400 Systolic blood pressure 115 mm[Hg] Brittnee Scally Other [employer] Other 06-29-2023 10:30-0400 Body height 170.18 cm Vinnie Stewart Other [employer] Other 06-29-2023 10:30-0400 Body mass index (BMI) [Ratio] 31.99 kg/m2 Vinnie Stewart Other [employer] Other 06-29-2023 10:30-0400 Body weight 92.67 kg Vinnie Stewart Other [employer] Other 06-29-2023 10:30-0400 Diastolic blood pressure 72 mm[Hg] Vinnie Stewart Other [employer] Other 06-29-2023 10:30-0400 Respiratory rate 18 /min Vinnie Stewart Other [employer] Other 06-29-2023 10:30-0400 SaO2% (BldA) [Mass fraction] 95 % Vinnie Stewart Other [employer] Other 06-29-2023 10:30-0400 Systolic blood pressure 124 mm[Hg] Vinnie Stewart Other [employer] Other 06-29-2023 08:15-0400 Body height 170.18 cm Brittnee Scally Other [employer] Other 06-29-2023 08:15-0400 Diastolic blood pressure 62 mm[Hg] Brittnee Scally Other [employer] Other 06-29-2023 08:15-0400 Respiratory rate 18 /min Brittnee Scally Other [employer] Other 06-29-2023 08:15-0400 SaO2% (BldA) [Mass fraction] 94 % Brittnee Scally Other [employer] Other 06-29-2023 08:15-0400 Systolic blood pressure 104 mm[Hg] Brittnee Scally Other [employer] Other 06-18-2023 11:30-0400 Body height 170.18 cm Vinnie Stewart Other [employer] Other 06-18-2023 11:30-0400 Body mass index (BMI) [Ratio] 32.89 kg/m2 Vinnie Stewart Other [employer] Other 06-18-2023 11:30-0400 Body temperature 97.5 [degF] Vinnie Stewart Other [employer] Other 06-18-2023 11:30-0400 Body weight 95.26 kg Vinnie Stewart Other [employer] Other 06-18-2023 11:30-0400 Diastolic blood pressure 72 mm[Hg] Vinnie Stewart Other [employer] Other 06-18-2023 11:30-0400 Respiratory rate 18 /min Vinnie Stewart Other [employer] Other 06-18-2023 11:30-0400 SaO2% (BldA) [Mass fraction] 94 % Vinnie Stewart Other [employer] Other 06-18-2023 11:30-0400 Systolic blood pressure 126 mm[Hg] Vinnie Stewart Other [employer] Other 04-19-2023 11:20-0400 Body height 170.18 cm Simba Jac Other [employer] Other 04-19-2023 11:20-0400 Body mass index (BMI) [Ratio] 32.76 kg/m2 Simba Jac Other [employer] Other 04-19-2023 11:20-0400 Body temperature 97.6 [degF] Simba Jac Other [employer] Other 04-19-2023 11:20-0400 Body weight 94.89 kg Simba Jac Other [employer] Other 04-19-2023 11:20-0400 Diastolic blood pressure 60 mm[Hg] Simba Jac Other [employer] Other 04-19-2023 11:20-0400 Respiratory rate 18 /min Simba Jac Other [employer] Other 04-19-2023 11:20-0400 SaO2% (BldA) [Mass fraction] 98 % Simba Jac Other [employer] Other 04-19-2023 11:20-0400 Systolic blood pressure 120 mm[Hg] Simba Jac Other [employer] Other 03-21-2023 14:00-0400 Body height 170.18 cm Vinnie Stewart Other [employer] Other 03-21-2023 14:00-0400 Body mass index (BMI) [Ratio] 32.42 kg/m2 Vninie Stewart Other [employer] Other 03-21-2023 14:00-0400 Body weight 93.9 kg Vinnie Stewart Other [employer] Other 03-21-2023 14:00-0400 Diastolic blood pressure 86 mm[Hg] Vinnie Stewart Other [employer] Other 03-21-2023 14:00-0400 Respiratory rate 18 /min Vinnie Stewart Other [employer] Other 03-21-2023 14:00-0400 SaO2% (BldA) [Mass fraction] 94 % Vinnie Stewart Other [employer] Other 03-21-2023 14:00-0400 Systolic blood pressure 132 mm[Hg] Vinnie Stewart Other [employer] Other 02-21-2023 15:45-0400 Body height 170.18 cm Vinnie Stewart Other [employer] Other 02-21-2023 15:45-0400 Body mass index (BMI) [Ratio] 32.57 kg/m2 Vinnie Stewart Other [employer] Other 02-21-2023 15:45-0400 Body weight 94.35 kg Vinnie Stewart Other [employer] Other 02-21-2023 15:45-0400 Diastolic blood pressure 76 mm[Hg] Vinnie Stewart Other [employer] Other 02-21-2023 15:45-0400 Respiratory rate 18 /min Vinnie Stewart Other [employer] Other 02-21-2023 15:45-0400 SaO2% (BldA) [Mass fraction] 97 % Vinnie Stewart Other [employer] Other 02-21-2023 15:45-0400 Systolic blood pressure 134 mm[Hg] Vinnie Stewart Other [employer] Other 02-14-2023 15:48-0400 Body temperature 97.5 [degF] DO Vinnie Stewart Work Phone: [facility] 02-14-2023 15:48-0400 Diastolic blood pressure 80 mm[Hg] DO Vinnie Stewart Work Phone: [facility] 02-14-2023 15:48-0400 Heart rate 86 /min DO Vinnie Stewart Work Phone: [facility] 02-14-2023 15:48-0400 Respiratory rate 16 /min DO Vinnie Lucasley Work Phone: [facility] 02-14-2023 15:48-0400 SaO2% (BldA) [Mass fraction] 98 % DO Vinnie Lucasley Work Phone: [facility] 02-14-2023 15:48-0400 Systolic blood pressure 137 mm[Hg] DO Vinnie Lucasley Work Phone: [facility] 02-14-2023 14:01-0400 Body height 175.26 cm DO Vinnie Lucasley Work Phone: [facility] 02-14-2023 06:00-0400 Body weight 97 kg DO Vinnie Lucasley Work Phone: [facility] 02-13-2023 20:36-0400 Diastolic blood pressure 79 mm[Hg] DO Vinnie Lucasley Work Phone: [facility] 02-13-2023 20:36-0400 Heart rate 86 /min DO Vinnie Stewart Work Phone: [facility] 02-13-2023 20:36-0400 Respiratory rate 16 /min DO Vinnie Lucasley Work Phone: [facility] 02-13-2023 20:36-0400 SaO2% (BldA) [Mass fraction] 94 % DO Vinnie Stewart Work Phone: [facility] 02-13-2023 20:36-0400 Systolic blood pressure 146 mm[Hg] DO Vinnie Stewart Work Phone: [facility] 02-13-2023 15:38-0400 Body height 175.26 cm DO Vinnie Stewart Work Phone: [facility] 02-13-2023 15:38-0400 Body temperature 97.8 [degF] DO Vinnie Stewart Work Phone: [facility] 02-13-2023 15:38-0400 Body weight 96.16 kg DO Vinnie Stewart Work Phone: [facility] 02-09-2023 12:45-0400 Body height 170.18 cm Vinnie Stewart Other [employer] Other 02-09-2023 12:45-0400 Body mass index (BMI) [Ratio] 33.2 kg/m2 Vinnie Stewart Other [employer] Other 02-09-2023 12:45-0400 Body weight 96.16 kg Vinnie Stewart Other [employer] Other 02-09-2023 12:45-0400 Diastolic blood pressure 82 mm[Hg] Vinnie Stewart Other [employer] Other 02-09-2023 12:45-0400 Respiratory rate 18 /min Vinnie Stewart Other [employer] Other 02-09-2023 12:45-0400 SaO2% (BldA) [Mass fraction] 94 % Vinnie Stewart Other [employer] Other 02-09-2023 12:45-0400 Systolic blood pressure 128 mm[Hg] Vinnie Stewart Other [employer] Other 01-17-2023 15:30-0500 Body height 170.18 cm Vinnie Lucasley Other [employer] Other 01-17-2023 15:30-0500 Body mass index (BMI) [Ratio] 36.02 kg/m2 Vinnie Stewart Other [employer] Other 01-17-2023 15:30-0500 Body weight 104.33 kg Vinnie Stewart Other [employer] Other 01-17-2023 15:30-0500 Diastolic blood pressure 82 mm[Hg] Vinnie Stewart Other [employer] Other 01-17-2023 15:30-0500 Respiratory rate 18 /min Vinnie Stewart Other [employer] Other 01-17-2023 15:30-0500 SaO2% (BldA) [Mass fraction] 94 % Vinnie Stewart Other [employer] Other 01-17-2023 15:30-0500 Systolic blood pressure 134 mm[Hg] Vinnie Stewart Other [employer] Other 12-04-2022 13:06-0500 Body height 175.26 cm DO Vinnie Osvaldo Work Phone: [facility] 12-04-2022 13:06-0500 Body weight 100.8 kg DO Vinnie Stewart Work Phone: [facility] 12-04-2022 13:06-0500 Diastolic blood pressure 84 mm[Hg] DO Vinnie Osvaldo Work Phone: [facility] 12-04-2022 13:06-0500 Heart rate 86 /min DO Vinnie Osvaldo Work Phone: [facility] 12-04-2022 13:06-0500 Respiratory rate 20 /min DO Vinnie Stewart Work Phone: [facility] 12-04-2022 13:06-0500 SaO2% (BldA) [Mass fraction] 96 % DO Vinnie Stewart Work Phone: [facility] 12-04-2022 13:06-0500 Systolic blood pressure 129 mm[Hg] DO Vinnie Stewart Work Phone: [facility] 11-07-2022 14:45-0500 Body height 170.18 cm Brittnee Scally Other [employer] Other 11-07-2022 14:45-0500 Body mass index (BMI) [Ratio] 39.7 kg/m2 Brittnee Scally Other [employer] Other 11-07-2022 14:45-0500 Body weight 114.99 kg Brittnee Scally Other [employer] Other 11-07-2022 14:45-0500 Diastolic blood pressure 68 mm[Hg] Brittnee Scally Other [employer] Other 11-07-2022 14:45-0500 Respiratory rate 20 /min Brittnee Scally Other [employer] Other 11-07-2022 14:45-0500 SaO2% (BldA) [Mass fraction] Brittnee Scally Other [employer] Other 11-07-2022 14:45-0500 Systolic blood pressure 108 mm[Hg] Brittnee Scally Other [employer] Other 09-28-2022 13:00-0500 Diastolic blood pressure 67 mm[Hg] Gisselle Dickey Other [employer] Other 09-28-2022 13:00-0500 Respiratory rate 18 /min Gisselle Noble Other [employer] Other 09-28-2022 13:00-0500 SaO2% (BldA) [Mass fraction] 92 % Gisselle Dickey Other [employer] Other 09-28-2022 13:00-0500 Systolic blood pressure 123 mm[Hg] Gisselle Dickey Other [employer] Other 09-28-2022 12:40-0500 Body height 170.18 cm Simba Jac Other [employer] Other 09-28-2022 12:40-0500 Body mass index (BMI) [Ratio] 37.93 kg/m2 Simba Jac Other [employer] Other 09-28-2022 12:40-0500 Body temperature 96.2 [degF] Simba Jac Other [employer] Other 09-28-2022 12:40-0500 Body weight 109.86 kg Simba Jac Other [employer] Other 09-28-2022 12:40-0500 Diastolic blood pressure 81 mm[Hg] Simba Jac Other [employer] Other 09-28-2022 12:40-0500 Respiratory rate 20 /min Simba Jac Other [employer] Other 09-28-2022 12:40-0500 SaO2% (BldA) [Mass fraction] 90 % Simba Jac Other [employer] Other 09-28-2022 12:40-0500 Systolic blood pressure 139 mm[Hg] Simba Jac Other [employer] Other 09-13-2022 14:00-0400 Body height 170.18 cm Vinnie Stewart Other [employer] Other 09-13-2022 14:00-0400 Body mass index (BMI) [Ratio] 35.71 kg/m2 Vinnie Stewart Other [employer] Other 09-13-2022 14:00-0400 Body weight 103.42 kg Vinnie Stewart Other [employer] Other 09-13-2022 14:00-0400 Diastolic blood pressure 81 mm[Hg] Vinnie Stewart Other [employer] Other 09-13-2022 14:00-0400 Respiratory rate 16 /min Vinnie Stewart Other [employer] Other 09-13-2022 14:00-0400 SaO2% (BldA) [Mass fraction] 97 % Vinnie Stewart Other [employer] Other 09-13-2022 14:00-0400 Systolic blood pressure 119 mm[Hg] Vinnie Stewart Other [employer] Other 07-31-2022 15:30-0400 Body height 170.18 cm Brittnee Spain Other [employer] Other 07-31-2022 15:30-0400 Body mass index (BMI) [Ratio] 35.55 kg/m2 Brittnee Scally Other [employer] Other 07-31-2022 15:30-0400 Body weight 102.97 kg Brittnee Scally Other [employer] Other 07-31-2022 15:30-0400 Diastolic blood pressure 78 mm[Hg] Brittnee Scally Other [employer] Other 07-31-2022 15:30-0400 Respiratory rate 20 /min Brittnee Scally Other [employer] Other 07-31-2022 15:30-0400 SaO2% (BldA) [Mass fraction] 95 % Brittnee Scally Other [employer] Other 07-31-2022 15:30-0400 Systolic blood pressure 125 mm[Hg] Brittnee Scally Other [employer] Other 06-20-2022 12:15-0400 Body height 170.18 cm Vinnie Stewart Other [employer] Other 06-20-2022 12:15-0400 Body mass index (BMI) [Ratio] 35.55 kg/m2 Vinnie Stewart Other [employer] Other 06-20-2022 12:15-0400 Body weight 102.97 kg Vinnie Stewart Other [employer] Other 06-20-2022 12:15-0400 Diastolic blood pressure 47 mm[Hg] Vinnie Stewart Other [employer] Other 06-20-2022 12:15-0400 Respiratory rate 18 /min Vinnie Stewart Other [employer] Other 06-20-2022 12:15-0400 SaO2% (BldA) [Mass fraction] 94 % Vinnie Stewart Other [employer] Other 06-20-2022 12:15-0400 Systolic blood pressure 106 mm[Hg] Vinnie Stewart Other [employer] Other 06-06-2022 11:36-0400 Body temperature 98 [degF] DO Vinnie Stewart Work Phone: [facility] 03-02-2022 15:30-0400 Body height 170.18 cm Vinnie Stewart Other [employer] Other 03-02-2022 15:30-0400 Body mass index (BMI) [Ratio] 35.39 kg/m2 Vinnie Stewart Other [employer] Other 03-02-2022 15:30-0400 Body temperature 97.5 [degF] Vinnie Stewart Other [employer] Other 03-02-2022 15:30-0400 Body weight 102.51 kg Vinnie Stewart Other [employer] Other 03-02-2022 15:30-0400 Diastolic blood pressure 74 mm[Hg] Vinnie Stewart Other [employer] Other 03-02-2022 15:30-0400 Respiratory rate 20 /min Vinnie Stewart Other [employer] Other 03-02-2022 15:30-0400 SaO2% (BldA) [Mass fraction] 94 % Vinnie Stewart Other [employer] Other 03-02-2022 15:30-0400 Systolic blood pressure 114 mm[Hg] Vinnie Stewart Other [employer] Other 02-19-2022 12:05-0400 Body height 170.18 cm Ruthie Guzman Other [employer] Other 02-19-2022 12:05-0400 Body mass index (BMI) [Ratio] 35.71 kg/m2 Ruthie Clementemond Other [employer] Other 02-19-2022 12:05-0400 Body temperature 97.4 [degF] Ruthie Clementemond Other [employer] [employer] Other 02-19-2022 12:05-0400 Body weight 103.42 kg Ruthie Guzman Other [employer] Other 02-19-2022 12:05-0400 Diastolic blood pressure 62 mm[Hg] Ruthie Clementemond Other [employer] Other 02-19-2022 12:05-0400 Respiratory rate 20 /min Ruthie Clementemond Other [employer] Other 02-19-2022 12:05-0400 SaO2% (BldA) [Mass fraction] 94 % Ruthie Clementemond Other [employer] Other 02-19-2022 12:05-0400 Systolic blood pressure 116 mm[Hg] Ruthie Megan Other [employer] Other 02-07-2022 16:00-0400 Body height 170.18 cm Balbir Mejia Other [employer] Other 02-07-2022 16:00-0400 Body mass index (BMI) [Ratio] 36.02 kg/m2 Balbir Mejia Other [employer] Other 02-07-2022 16:00-0400 Body temperature 97.3 [degF] Balbir Mejia Other [employer] Other 02-07-2022 16:00-0400 Body weight 104.33 kg Balbir Mejia Other [employer] Other 02-07-2022 16:00-0400 Diastolic blood pressure 74 mm[Hg] Balbir Ba Other [employer] Other 02-07-2022 16:00-0400 SaO2% (BldA) [Mass fraction] 98 % Balbir Mejia Other [employer] Other 02-07-2022 16:00-0400 Systolic blood pressure 136 mm[Hg] Balbir Mejia Other [employer] Other 01-11-2022 14:00-0500 Body height 170.18 cm Brittnee Scally Other [employer] Other 01-11-2022 14:00-0500 Body mass index (BMI) [Ratio] 35.5 kg/m2 Brittnee Scally Other [employer] Other 01-11-2022 14:00-0500 Body weight 102.83 kg Brittnee Scally Other [employer] Other 01-11-2022 14:00-0500 Diastolic blood pressure 62 mm[Hg] Brittnee Scally Other [employer] Other 01-11-2022 14:00-0500 Respiratory rate 20 /min Brittnee Scally Other [employer] Other 01-11-2022 14:00-0500 SaO2% (BldA) [Mass fraction] 98 % Brittnee Scally Other [employer] Other 01-11-2022 14:00-0500 Systolic blood pressure 105 mm[Hg] Brittnee Scally Other [employer] Other 11-16-2021 14:00-0500 Body height 170.18 cm Brittnee Scally Other [employer] Other 11-16-2021 14:00-0500 Body mass index (BMI) [Ratio] 35.72 kg/m2 Brittnee Scally Other [employer] Other 11-16-2021 14:00-0500 Body weight 103.47 kg Brittnee Scally Other [employer] Other 11-16-2021 14:00-0500 Diastolic blood pressure 70 mm[Hg] Brittnee Scally Other [employer] Other 11-16-2021 14:00-0500 Respiratory rate 20 /min Brittnee Scally Other [employer] Other 11-16-2021 14:00-0500 SaO2% (BldA) [Mass fraction] 93 % Brittnee Scally Other [employer] Other 11-16-2021 14:00-0500 Systolic blood pressure 123 mm[Hg] Brittnee Scally Other [employer] Other 10-05-2021 14:45-0500 Body height 170.18 cm Brittnee Scally Other [employer] Other 10-05-2021 14:45-0500 Body mass index (BMI) [Ratio] 35.42 kg/m2 Brittnee Scally Other [employer] Other 10-05-2021 14:45-0500 Body weight 102.6 kg Brittnee Scally Other [employer] Other 10-05-2021 14:45-0500 Diastolic blood pressure 74 mm[Hg] Brittnee Scally Other [employer] Other 10-05-2021 14:45-0500 Respiratory rate 20 /min Brittnee Scally Other [employer] Other 10-05-2021 14:45-0500 SaO2% (BldA) [Mass fraction] 95 % Brittnee Scally Other [employer] Other 10-05-2021 14:45-0500 Systolic blood pressure 123 mm[Hg] Brittnee Scally Other [employer] Other 09-26-2021 12:00-0500 Body height 170.18 cm Vinnie Stewart Other [employer] Other 09-26-2021 12:00-0500 Body mass index (BMI) [Ratio] 35.39 kg/m2 Vinnie Stewart Other [employer] Other 09-26-2021 12:00-0500 Body temperature 98.1 [degF] Vinnie Stewart Other [employer] Other 09-26-2021 12:00-0500 Body weight 102.51 kg Vinnie Stewart Other [employer] Other 09-26-2021 12:00-0500 Diastolic blood pressure 72 mm[Hg] Vinnie Stewart Other [employer] Other 09-26-2021 12:00-0500 Respiratory rate 20 /min Vinnie Stewart Other [employer] Other 09-26-2021 12:00-0500 SaO2% (BldA) [Mass fraction] 95 % Vinnie Lucasley Other [employer] Other 09-26-2021 12:00-0500 Systolic blood pressure 118 mm[Hg] Vinnie Stewart Other [employer] Other 12-18-2019 10:11-0500 BMI (Body Mass Index) 35.2 kg/m2 Vinnie [facility] 12-18-2019 10:11-0500 Body weight 108.4 kg Vinnie [facility] 12-18-2019 10:11-0500 Height 175.26 cm Vinnie [facility] 12-18-2019 10:01-0500 Body Temperature 97.8 [degF] Vinnie Stewart [facility] 12-18-2019 10:01-0500 BP Diastolic 80 mm[Hg] Vinnie [facility] 12-18-2019 10:01-0500 BP Systolic 126 mm[Hg] [facility] 12-18-2019 10:01-0500 Pulse (Heart Rate) 108 /min Vinnie Stewart [facility] 12-18-2019 10:01-0500 Respiratory Rate 16 /min Vinnie Stewart [facility] Encounters Encounter Date Encounter Type Care Provider Facility Start: 02-05-2024 Non-patient / Non-visit DO Vinnie Stewart Work Phone: [facility] Work Phone: Start: 01-30-2024 Non-patient / Non-visit DO Vinnie Stewart Work Phone: [facility]ious Disease Work Phone: Start: 01-30-2024 Non-patient / Non-visit DO Vinnie Setwart Work Phone: [facility] V[facility] Surgery Work Phone: Start: 01-29-2024 Non-patient / Non-visit DO Vinnie Stewart Work Phone: [facility] Pul[facility] Work Phone: Start: 01-29-2024 Non-patient / Non-visit DO Vinnie Stewart Work Phone: [facility] Work Phone: Start: 01-28-2024 End: 02-05-2024 Evaluation and management of inpatient Farhan Stuart Facility:[facility] Start: 01-28-2024 Non-patient / Non-visit DO Vinnie Stewart Work Phone: [facility] Physician [facility] Work Phone: Start: 01-28-2024 End: 02-05-2024 Evaluation and management of inpatient DO Vinnie Stewart Work Phone: [facility] [place] [facility] Work Phone: Start: 01-25-2024 End: 01-25-2024 ambulatory BRYCE WATSON [facility] Start: 01-17-2024 End: 01-17-2024 ambulatory Jorge Arroyo Facility:[facility] Start: 01-17-2024 End: 01-17-2024 Departed Referred DO Vinnie Stewart Work Phone: [facility] Start: 12-27-2023 End: 12-27-2023 ambulatory Vinnie Stewart Other [employer] Other Start: 12-27-2023 Telephone encounter Vinnie Palomino [facility] Start: 12-20-2023 End: 12-20-2023 ambulatory Vinnie Stewart Other [employer] Other Start: 12-20-2023 Telephone encounter [facility] Start: 12-18-2023 End: 12-19-2023 ambulatory VINNIE STEWART [facility] Start: 12-17-2023 End: 12-17-2023 ambulatory Vinnie Stewart Other [employer] Other Start: 12-17-2023 Telephone encounter Vinnie Palomino [facility] Start: 12-11-2023 Non-patient / Non-visit DO Vinnie Stewart Work Phone: [facility] [employer] Work Phone: Start: 12-10-2023 End: 12-11-2023 ambulatory Vinnie Stewart Facility:[facility] Start: 12-10-2023 End: 12-10-2023 Discharged Recurring DO Vinnie Stewart Work Phone: [facility] Work Phone: Start: 12-10-2023 End: 12-10-2023 ambulatory DO Vinnie Stewart Work Phone: [employer] Other Start: 12-10-2023 Nursing evaluation o f patient and report Brittnee Spain [facility] Start: 11-26-2023 End: 11-26-2023 ambulatory BRYCE SHIRLEY [facility] Start: 11-22-2023 End: 11-22-2023 ambulatory Vinnie Stewart Other [employer] Other Start: 11-22-2023 Office outpatient visit 15 minutes Vinnie FRANCISCO [facility] [address] Start: 11-22-2023 Telephone encounter Vinnie Palomino [facility] [address] Start: 11-22-2023 End: 11-22-2023 Patient encounter procedure DO Vinnie Stewart Work Phone: [facility] [address] Work Phone: Start: 11-21-2023 End: 11-21-2023 ambulatory Vinnie Stewart Other [employer] Other Start: 11-21-2023 Telephone encounter Vinnie Palomino [facility] Start: 11-15-2023 End: 11-15-2023 ambulatory Simba Jac Other [employer] Other Start: 11-15-2023 Office outpatient visit 25 minutes Simba Jac [facility] Start: 11-15-2023 End: 11-15-2023 Patient encounter procedure DO Vinnie Stewart Work Phone: [facility] Nephrology Aaron Work Phone: Start: 11-13-2023 (DM) [facility] Start: 11-13-2023 End: 11-13-2023 ambulatory Brittnee Spain Other [employer] Other Start: 11-13-2023 Telephone encounter Brittnee [facility] Start: 11-13-2023 End: 11-13-2023 Patient encounter procedure DO Vinnie Stewart Work Phone: [facility] Work Phone: Start: 11-06-2023 End: 11-06-2023 ambulatory Vinnie Stewart Other [employer] Other Start: 11-06-2023 Telephone encounter Vinnie Palomino [facility] Start: 11-01-2023 End: 11-01-2023 ambulatory Brittnee Spain Other [employer] Other Start: 11-01-2023 Telephone encounter Brittnee Matt [facility] Start: 10-25-2023 End: 10-25-2023 ambulatory Vinnie Stewart Other [employer] Other Start: 10-25-2023 Telephone encounter Vinnie Palomino [facility] [address] Start: 10-22-2023 End: 10-22-2023 ambulatory Brittnee Spain Other [employer] Other Start: 10-22-2023 Telephone encounter Brittnee Matt [facility] Start: 10-19-2023 End: 10-19-2023 ambulatory Vinnie Stewart Other [employer] Other Start: 10-19-2023 Telephone encounter Vinnie Palomino [facility] [address] Start: 10-08-2023 End: 10-08-2023 ambulatory Brittnee Spain Other [employer] Other Start: 10-08-2023 Nursing evaluation o f patient and report Brittnee Spain [facility] Start: 10-08-2023 End: 10-08-2023 Patient encounter procedure DO Vinnie Stewart Work Phone: [facility] Work Phone: Start: 10-04-2023 (Acute) Acute Visit Brittnee [facility] Start: 10-04-2023 End: 10-04-2023 ambulatory Brittnee Spain Other [employer] Other Start: 10-03-2023 End: 10-03-2023 ambulatory Britntee Spain Other [employer] Other Start: 10-03-2023 Telephone encounter Brittnee [facility] Start: 09-21-2023 End: 09-21-2023 ambulatory [facility] Start: 09-20-2023 End: 09-20-2023 ambulatory Vinnie Stewart Other [employer] Other Start: 09-20-2023 Telephone encounter Vinnie Palomino [facility] Start: 09-18-2023 (DM) Diabetes Brittnee Omalleynitza [facility] Start: 09-18-2023 End: 09-18-2023 ambulatory Vinnie Stewart Other [employer] Other Start: 09-18-2023 Telephone encounter Vinnie Palomino [facility] Start: 09-17-2023 End: 09-17-2023 ambulatory Vinnie Stewart Other [employer] Other Start: 09-17-2023 Telephone encounter Vinnie Palomino [facility] Start: 08-31-2023 End: 08-31-2023 ambulatory Brittnee Spain Other [employer] Other Start: 08-31-2023 Telephone encounter Brittnee [facility] Start: 08-30-2023 End: 08-30-2023 ambulatory UNKNOWN PROVIDER [employer] Other Start: 08-30-2023 Telephone encounter Vinnie Palomino [facility] Start: 08-23-2023 End: 08-23-2023 ambulatory MASSIMO PECKER [facility] [employer] Other Start: 08-23-2023 Telephone encounter Vinnie ROSALES [facility] Start: 08-20-2023 End: 08-20-2023 ambulatory Vinnie Stewart Other [employer] Other Start: 08-20-2023 Telephone encounter Vinnie ROSALES G [facility] [address] Start: 08-15-2023 Telephone encounter Vinnie ROSALES [facility] Start: 08-15-2023 End: 08-15-2023 ambulatory BRYCE WATSON [facility] [employer] Other Start: 08-03-2023 End: 08-03-2023 ambulatory Vinnie Stewart Other [employer] Other Start: 08-03-2023 Telephone encounter Vinnie ROSALES [facility] Start: 07-30-2023 End: 07-30-2023 ambulatory Vinnie Stewart Other [employer] Other Start: 07-30-2023 Telephone encounter Vinnie ROSALES [facility] Start: 07-27-2023 End: 07-27-2023 ambulatory Vinnie Stewart Other [employer] Other Start: 07-27-2023 Telephone encounter Vinnie ROSALES [facility] Start: 07-24-2023 End: 07-24-2023 ambulatory [facility] Start: 07-20-2023 End: 07-20-2023 ambulatory Vinnie Stewart Other [employer] Other Start: 07-20-2023 Telephone encounter Vinnie ROSALES [facility] Start: 07-19-2023 End: 07-19-2023 ambulatory Vinnie Stewart Other [employer] Other Start: 07-19-2023 Telephone encounter Vinnie Palomino [facility] [address] Start: 07-16-2023 End: 07-16-2023 ambulatory Vinnie Stewart Other [employer] Other Start: 07-16-2023 Telephone encounter Vinnie Palomino [facility] [address] Start: 07-12-2023 End: 07-12-2023 ambulatory Vinnie Stewart Other [employer] Other Start: 07-12-2023 Telephone encounter Vinnie Palomino [facility] [address] Start: 06-29-2023 (DM) Diabetes Brittnee Judit [facility] Start: 06-29-2023 End: 06-29-2023 ambulatory Vinnie Stewart Other [employer] Other Start: 06-29-2023 Office outpatient visit 15 minutes Vinnie Stewart [facility] Start: 06-18-2023 End: 06-18-2023 ambulatory Vinnie Stewart Other [employer] Other Start: 06-18-2023 Office outpatient visit 15 minutes Vinnie Stewart [facility] Start: 06-15-2023 End: 06-15-2023 ambulatory Vinnie Stewart Other [employer] Other Start: 06-15-2023 Telephone encounter Vinnie Palomino [facility] Start: 06-05-2023 End: 06-06-2023 ambulatory [facility] Start: 05-31-2023 End: 05-31-2023 ambulatory Vinnie Stewart Other [employer] Other Start: 05-31-2023 Telephone encounter Vinnie Palomino [facility] [address] Start: 05-18-2023 End: 05-18-2023 ambulatory Vinnie Stewart Other [employer] Other Start: 05-18-2023 Telephone encounter Vinnie Palomino [facility] Start: 05-08-2023 End: 05-08-2023 ambulatory Nicolette Manzano Other [employer] Other Start: 05-08-2023 Telephone encounter Nicolette Manzano [facility] Start: 05-02-2023 End: 05-02-2023 ambulatory Brittnee Spain Other [employer] Other Start: 05-02-2023 Nursing evaluation o f patient and report Brittnee Spain [facility] Start: 04-20-2023 End: 04-20-2023 ambulatory Vinnie Stewart Other [employer] Other Start: 04-20-2023 Telephone encounter Vinnie Palomino [facility] [address] Start: 04-19-2023 End: 04-19-2023 ambulatory Simba Jac Other [employer] Other Start: 04-19-2023 Office outpatient visit 15 minutes Gisselle Dickey [facility] Start: 04-19-2023 Office outpatient visit 25 minutes Simba Jac [facility] Start: 04-18-2023 End: 04-18-2023 ambulatory Vinnie Stewart Other [employer] Other Start: 04-18-2023 Telephone encounter Vinnie Palomino [facility] [address] Start: 04-17-2023 Telephone encounter Vinnie Palomino [facility] Start: 04-17-2023 End: 04-17-2023 ambulatory JORGE Goodman [facility] Facility: Start: 04-13-2023 End: 04-13-2023 ambulatory Simba Jac Other [facility] [employer] Other Start: 04-13-2023 Telephone encounter Simba Jac [facility] Start: 04-11-2023 End: 04-12-2023 ambulatory SIMBA JAC Facility:[facility] Start: 04-02-2023 End: 04-03-2023 ambulatory JORGE ARROYO [facility] [employer] Other Start: 04-02-2023 Telephone encounter Vinnie Palomino [facility] [address] Start: 03-27-2023 End: 03-28-[address] DEEPAK FOURNIER . [facility] [employer] Other Start: 03-27-2023 Telephone encounter Brittnee [facility] Start: 03-21-2023 End: 03-21-2023 ambulatory DAHIANA BELCHER [facility] [employer] Other Start: 03-21-2023 Office outpatient visit 15 minutes Vinnie FRANCISCO [facility] [address] Start: 03-19-2023 Telephone encounter Vinnie Palomino [facility] [address] Start: 03-19-2023 End: 04-18-2023 ambulatory BROWN Jorge L GIGI [facility] [employer] Other Start: 02-27-2023 End: 02-27-2023 ambulatory Vinnie Stewart Other [facility] [employer] Other Start: 02-27-2023 Telephone encounter Vinnie Palomino [facility] [address] Start: 02-21-2023 End: 02-21-2023 ambulatory Yakov To Facility:[facility] Start: 02-21-2023 Office outpatient visit 15 minutes Vinnie FRANCISCO [facility] [address] Start: 02-21-2023 End: 02-21-2023 ambulatory DO Vinnie Stewart Work Phone: [facility] Work Phone: Start: 02-21-2023 End: 02-21-2023 Patient encounter procedure DO Vinnie Stewart Work Phone: [facility] [place] Work Phone: Start: 02-20-2023 End: 02-20-2023 ambulatory Vinnie Stewart Other [employer] Other Start: 02-20-2023 Telephone encounter Vinnie Palomino [facility] Start: 02-19-2023 End: 03-16-2023 ambulatory SHAIKH Jorge L KALPANAEliciaANKUSH Facility: Start: 02-13-2023 End: 02-14-2023 Evaluation and management of inpatient Yakov Allen To Facility:[facility] Start: 02-13-2023 End: 02-14-2023 Evaluation and management of inpatient DO Vinnie Stewart Work Phone: [facility] [place] [facility] Work Phone: Start: 02-13-2023 Registered Recurring DO Vinnie Stewart Work Phone: [facility] Work Phone: Start: 02-13-2023 End: 02-13-2023 ambulatory Vinnie Stewart Other [employer] Other Start: 02-13-2023 Telephone encounter Vinnie Palomino [facility] Start: 02-09-2023 End: 02-09-2023 ambulatory Vinnie Stewart Other [employer] Other Start: 02-09-2023 Office outpatient visit 15 minutes Vinnie FRANCISCO [facility] Start: 02-05-2023 End: 02-05-2023 ambulatory Vinnie Stewart Other [employer] Other Start: 02-05-2023 Telephone encounter Vinnie Palomino [facility] Start: 01-30-2023 End: 01-30-2023 ambulatory Vinnie Stewart Other [employer] Other Start: 01-30-2023 Telephone encounter Vinnie Palomino [facility] Start: 01-29-2023 End: 01-30-2023 ambulatory SUSHIL LILLYINDIO Facility:[facility] Start: 01-29-2023 End: 01-29-2023 ambulatory [facility] Start: 01-17-2023 Office outpatient visit 15 minutes Vinnie FRANCISCO [facility] Start: 01-17-2023 End: 02-16-2023 ambulatory SHAIKH Jorge L YU [employer] Other Start: 01-16-2023 End: 01-16-2023 ambulatory Vinnie Stewart Other [employer] Other Start: 01-16-2023 Telephone encounter Vinnie Palom[facility] Start: 01-05-2023 End: 01-11-2023 Evaluation and management of inpatient NIK UBNN . Facility:[facility] Start: 01-02-2023 End: 01-02-2023 ambulatory CANDELARIA EMA Olson Facility:[facility] Start: 01-02-2023 End: 01-03-2023 ambulatory KODI MYERS Facility:[facility] Start: 12-26-2022 End: 12-27-2022 ambulatory KODI MYERS Facility:[facility] Start: 12-22-2022 End: 12-22-2022 ambulatory Vinnie Stewart Other [employer] Other Start: 12-22-2022 Telephone encounter Vinnie Palomino [facility] Start: 12-20-2022 End: 01-17-2023 ambulatory SHAIKH Jorge L YU Facility:[facility] Start: 12-19-2022 End: 12-19-2022 ambulatory Vinnie Stewart Other [employer] Other Start: 12-19-2022 Telephone encounter Vinnie Palomino [facility] Start: 12-14-2022 End: 12-14-2022 ambulatory Vinnie Stewart Other [employer] Other Start: 12-14-2022 Telephone encounter Vinnie Palomino [facility] Start: 12-12-2022 End: 12-12-2022 ambulatory Brittnee Spain Other [employer] Other Start: 12-12-2022 Nursing evaluation o f patient and report Brittnee Spain [facility] Start: 12-11-2022 End: 12-11-2022 ambulatory Vinnie Stewart Other [employer] Other Start: 12-11-2022 Telephone encounter Vinnie Palomino [facility] Start: 12-04-2022 End: 12-04-2022 ambulatory DO Vinnie Stewart Work Phone: [facility] Work Phone: Start: 12-04-2022 End: 12-04-2022 Registered Recurring DO Vinnie Stewart Work Phone: [facility] Work Phone: Start: 11-29-2022 End: 11-29-2022 ambulatory Vinnie Stewart Other [employer] Other Start: 11-29-2022 Telephone encounter Vinnie Palomino [facility] Start: 11-27-2022 End: 11-27-2022 ambulatory Vinnie Stewart Other [employer] Other Start: 11-27-2022 Telephone encounter Vinnie Palom[facility] Start: 11-20-2022 End: 12-20-2022 ambulatory SHAIKH Jorge L YU Facility: Start: 11-14-2022 End: 11-15-[address] YEN [facility] [employer] Other Start: 11-14-2022 Telephone encounter Vinnie [facility] [place] Start: 11-07-2022 (DM) [facility] Start: 11-07-2022 End: 11-07-2022 ambulatory Brittnee Spain Other [employer] Other Start: 11-07-2022 Registered Recurring DO Vinnie Stewart Work Phone: [facility] Work Phone: Start: 11-01-2022 End: 11-01-2022 ambulatory Brittnee Spain Other [employer] Other Start: 11-01-2022 Telephone encounter Brittnee Remalouisa Matt juany [facility] Start: 10-31-2022 End: 10-31-2022 ambulatory Vinnie Stewart Other [employer] Other Start: 10-31-2022 Telephone encounter Vinnie Palomino [facility] [place] Start: 10-27-2022 Telephone encounter Gisselle Dickey [facility] Start: 10-27-2022 End: 10-28-2022 ambulatory BRYCE WATSON [employer] Other Start: 10-19-2022 End: 11-19-2022 ambulatory SHAIKH Jorge L YU Facility: Start: 10-11-2022 End: 10-11-2022 ambulatory Brittnee Spain Other [employer] Other Start: 10-11-2022 Telephone encounter Brittnee Remalouisa Matt shainas [facility] Start: 10-09-2022 End: 10-09-2022 ambulatory Vinnie Stewart Other [employer] Other Start: 10-09-2022 Telephone encounter Vinnie Palomino [facility] [place] Start: 10-05-2022 End: 10-05-2022 ambulatory Vinnie Stewart Other [employer] Other Start: 10-05-2022 Telephone encounter Vinnie Palomino [facility] [place] Start: 10-03-2022 End: 10-03-[address] BIANCA STUART Facility:H1 Start: 09-28-2022 End: 09-28-2022 ambulatory Simba Jac Other [employer] Other Start: 09-28-2022 Office outpatient visit 15 minutes Gisselle Noble [facility] Start: 09-28-2022 Office outpatient visit 25 minutes Simba Jac [facility] Start: 09-27-2022 End: 09-27-2022 ambulatory Vinnie Stewart Other [employer] Other Start: 09-27-2022 Telephone encounter Vinnie Palomino [facility] [place] Start: 09-19-2022 End: 10-18-2022 ambulatory SHAIKH Jorge L YU Facility:H1 Start: 09-18-2022 Telephone encounter Brittnee Matt [facility] Start: 09-18-2022 End: 09-19-2022 ambulatory SIMBA JAC [employer] Other Start: 09-13-2022 End: 09-13-2022 ambulatory Vinnie Stewart Other [employer] Other Start: 09-13-2022 Office outpatient visit 15 minutes Vinnie FRANCISCO [facility] [address] Start: 09-08-2022 End: 09-08-2022 ambulatory Vinnie Stewart Other [employer] Other Start: 09-08-2022 Telephone encounter Vinnie Palomino [facility] [address] Start: 08-31-2022 End: 08-31-2022 ambulatory Brittnee Spain Other [employer] Other Start: 08-31-2022 Telephone encounter Brittnee merritts [facility] Start: 08-21-2022 End: 08-21-2022 ambulatory Vinnie Stewart Other [employer] Other Start: 08-21-2022 Telephone encounter Vinnie Palomino [facility] [place] Start: 08-20-2022 End: 09-18-2022 ambulatory BROWN Jorge L VEGAWAD Facility:H1 Start: 08-02-2022 End: 08-02-2022 ambulatory Vinnie Stewart Other [employer] Other Start: 08-02-2022 Telephone encounter Vinnie Palomino [facility] [place] Start: 07-31-2022 (DM) Diabetes Brittnee Omalleynitza [facility] Start: 07-31-2022 End: 07-31-2022 ambulatory Brittnee Spain Other [employer] Other Start: 07-20-2022 End: 08-19-2022 ambulatory SHAIKH Jorge L YU Facility:H1 Start: 07-19-2022 End: 07-20-2022 ambulatory MASSIMO SWAN Facility:H1 Start: 07-18-2022 End: 07-18-2022 ambulatory Brittnee Spain Other [employer] Other Start: 07-18-2022 Telephone encounter Brittnee harrington [facility] Start: 07-11-2022 End: 07-11-2022 ambulatory Vinnie Stewart Other [employer] Other Start: 07-11-2022 Telephone encounter Vinnie Palomino [facility] [address] Start: 06-27-2022 End: 06-27-2022 ambulatory Vinnie Stewart Other [employer] Other Start: 06-27-2022 Telephone encounter Vinnie Palomino [facility] [address] Start: 06-23-2022 End: 06-24-2022 ambulatory PETER D HIGHLANDER Facility:H1 Start: 06-20-2022 End: 06-20-2022 ambulatory Vinnie Stewart Other [employer] Other Start: 06-20-2022 Office outpatient visit 15 minutes Vinnie FRANCISCO [facility] [place] Start: 06-19-2022 Telephone encounter Brittnee harrington [facility] Start: 06-19-2022 End: 07-19-2022 ambulatory SHAIKH Jorge L FALAISHAD [employer] Other Start: 06-13-2022 End: 06-16-2022 Evaluation and management of inpatient SHAIKH Jorge L LIMD Facility:H1 Start: 06-06-2022 End: 06-06-2022 ambulatory Vinnie Stewart Other [employer] Other Start: 06-06-2022 Telephone encounter Vinnie Palomino [facility] [place] Start: 06-01-2022 End: 06-02-2022 ambulatory JORGE ARROYO Facility:H1 Start: 05-30-2022 End: 05-30-2022 ambulatory Vinnie Stewart Other [employer] Other Start: 05-30-2022 Telephone encounter Vinnie Palomino [facility] [place] Start: 05-25-2022 End: 05-26-2022 ambulatory PETER D HIGHLANDER Facility:H1 Start: 05-19-2022 End: 06-16-2022 ambulatory SHAIKH Jorge L LIMD Facility:H1 Start: 05-18-2022 End: 05-19-2022 ambulatory PETER D HIGHLANDER Facility:H1 Start: 05-17-2022 End: 05-17-2022 ambulatory Brittnee Judit Other [employer] Other Start: 05-17-2022 Telephone encounter Brittnee harrington [facility] Start: 05-16-2022 End: 05-16-2022 ambulatory Vinnie Stewart Other [employer] Other Start: 05-16-2022 Telephone encounter Vinnie Palomino [facility] [place] Start: 05-08-2022 End: 05-10-2022 ambulatory VINNIE STEWART Facility:H1 Start: 05-04-2022 End: 05-04-2022 ambulatory Vinnie Stewart Other [employer] Other Start: 05-04-2022 Telephone encounter Vinnie Palomino [facility] [place] Start: 04-28-2022 End: 05-02-2022 Evaluation and management of inpatient SHAIKH Jorge L YU Facility:H1 Start: 04-26-2022 End: 04-26-2022 ambulatory Brittnee Judit Other [employer] Other Start: 04-26-2022 Telephone encounter Brittnee harrington [facility] Start: 04-25-2022 End: 04-25-2022 ambulatory Vninie Stewart Other [employer] Other Start: 04-25-2022 Telephone encounter Vinnie Palomino [facility] [place] Start: 04-24-2022 End: 04-24-2022 ambulatory Vinnie Stewart Other [employer] Other Start: 04-24-2022 Telephone encounter Vinnie Palomino [facility] [place] Start: 04-10-2022 End: 04-10-2022 ambulatory Brittnee Judit Other [employer] Other Start: 04-10-2022 Telephone encounter Brittnee Matt [place] [facility] Start: 03-21-2022 End: 03-21-2022 ambulatory Vinnie Stewart Other [employer] Other Start: 03-21-2022 Telephone encounter Vinnie Stewart FP [facility] Start: 03-17-2022 End: 03-17-2022 ambulatory Vinnie Stewart Other [employer] Other Start: 03-17-2022 Telephone encounter Vinnie ROSALES [facility] [place] Start: 03-03-2022 End: 03-03-2022 ambulatory Vinnie Stewart Other [employer] Other Start: 03-03-2022 Telephone encounter Vinnie ROSALES [facility] [place] Start: 03-02-2022 End: 03-02-2022 ambulatory Vinnie Stewart Other [employer] Other Start: 03-02-2022 Office outpatient visit 15 minutes Vinnie Stewart [facility] [place] Start: 02-20-2022 End: 02-20-2022 ambulatory Vinnie Stewart Other [employer] Other Start: 02-20-2022 Telephone encounter Vinnie Palomino [facility] [place] Start: 02-19-2022 End: 02-19-2022 ambulatory Ruthie Megan Other [employer] Other Start: 02-19-2022 Office outpatient visit 15 minutes Ruthie Megan [facility] Start: 02-19-2022 Telephone encounter Vinnie ROSALES [facility] Start: 02-10-2022 End: 02-10-2022 ambulatory Vinnie Stewart Other [employer] Other Start: 02-10-2022 Telephone encounter Vinnie ROSALES G [facility] Start: 02-07-2022 End: 02-07-2022 ambulatory Balbir Ba Other [employer] Other Start: 02-07-2022 Office outpatient visit 25 minutes Balbir Ba [facility] Start: 02-06-2022 End: 02-06-2022 ambulatory Vinnie Stewart Other [employer] Other Start: 02-06-2022 Telephone encounter Vinnie Palomino [facility] Start: 01-27-2022 End: 01-27-2022 ambulatory Vinnie Stewart Other [employer] Other Start: 01-27-2022 Telephone encounter Vinnie Palomino [facility] [place] Start: 01-26-2022 End: 01-26-2022 ambulatory Vinnie Stewart Other [employer] Other Start: 01-26-2022 Telephone encounter Vinnie Palomino [facility] [place] Start: 01-11-2022 (DM) Diabetes Brittnee Spain [facility] Start: 01-11-2022 End: 01-11-2022 ambulatory Brittnee Spain Other [employer] Other Start: 01-10-2022 End: 01-10-2022 ambulatory Vinnie Stewart Other [employer] Other Start: 01-10-2022 Telephone encounter Vinnie Palomino [facility] [place] Start: 01-05-2022 End: 01-05-2022 ambulatory Brittnee Spain Other [employer] Other Start: 01-05-2022 Telephone encounter Brittnee Spain [facility] Start: 12-26-2021 End: 12-26-2021 ambulatory Vinnie Stewart Other [employer] Other Start: 12-26-2021 Telephone encounter Vinnie Palomino [facility] [place] Start: 12-20-2021 End: 12-20-2021 ambulatory Brittnee Spain Other [employer] Other Start: 12-20-2021 Telephone encounter Brittnee merritts [facility] Start: 12-09-2021 End: 12-09-2021 ambulatory Vinnie Stewart Other [employer] Other Start: 12-09-2021 Telephone encounter Vinnie Palomino [facility] [address] Start: 11-30-2021 End: 11-30-2021 ambulatory Vinnie Stewart Other [employer] Other Start: 11-30-2021 Telephone encounter Vinnie Palomino [facility] [address] Start: 11-29-2021 End: 11-29-2021 ambulatory Brittnee Spain Other [employer] Other Start: 11-29-2021 Telephone encounter Brittnee merritts [facility] Start: 11-28-2021 End: 11-28-2021 ambulatory Brittnee Spain Other [employer] Other Start: 11-28-2021 Telephone encounter Vinnie Palomino [facility] [place] Start: 11-21-2021 End: 11-21-2021 ambulatory Brittnee Spain Other [employer] Other Start: 11-21-2021 Telephone encounter Brittnee merritts [facility] Start: 11-17-2021 End: 11-17-2021 ambulatory Vinnie Stewart Other [employer] Other Start: 11-17-2021 Telephone encounter Vinnie Palomino [facility] [address] Start: 11-16-2021 (DM) Diabetes Brittnee Remalouisa Shahramlan ds [facility] Start: 11-16-2021 End: 11-16-2021 ambulatory Brittnee Spain Other [employer] Other Start: 10-11-2021 End: 10-11-2021 ambulatory Vinnie Stewart Other [employer] Other Start: 10-11-2021 Telephone encounter Vinnie duron [facility] Start: 10-10-2021 End: 10-10-2021 ambulatory Vinnie Stewart Other [employer] Other Start: 10-10-2021 Telephone encounter Vinnie ROSALES [facility] [place] Start: 10-05-2021 (DM) Diabetes Brittnee Segovia ds [facility] Start: 10-05-2021 End: 10-05-2021 ambulatory Brittnee Spain Other [employer] Other Start: 09-26-2021 End: 09-26-2021 ambulatory Vinnie Stewart Other [employer] Other Start: 09-26-2021 Office outpatient visit 15 minutes Vinnie FRANCISCO [facility] [place] Start: 09-16-2021 End: 09-16-2021 ambulatory Brittnee Remalouisa Other [employer] Other Start: 09-16-2021 Telephone encounter Brittnee harrington [facility] Start: 04-12-2021 End: 04-17-2021 Evaluation and management of inpatient [place] Facility:[facility] Start: 12-16-2020 End: 12-16-2020 Patient encounter procedure Vinnie Stewart -Sleep Lab Start: 12-06-2020 Registered Recurring Vinnie Stewart - [facility] Care [place] Start: 12-18-2019 End: 12-18-2019 Discharged Recurring Vinnie Stewart [facility] [place] [facility] Start: 09-23-2019 End: 09-23-2019 Patient encounter procedure Vinnie Stewart -Sleep Lab Start: 02-24-2019 End: 02-24-2019 Admission to day surgery Vinnie Stewart -[facility] Procedures Date Procedure Procedure Detail Performing Clinician Start: 02-04-2024 IR Angiogram w/TLA/Stent Left Leg (Left) DO Vinnie Stewart Work Phone: Start: 01-31-2024 Catheterization DO Vinnie Stewart Work Phone: Start: 01-30-2024 Pulse volume recorder pneumoplethysmography DO Vinnie Stewart Work Phone: Start: 01-29-2024 Aerobic microbial culture DO Vinnie bose Work Phone: Start: 01-29-2024 Urine culture DO Vinnie Stewart Work Phone: Start: 02-13-2023 CT of head without contrast DO Vinnie stevens Work Phone: Start: 02-13-2023 Plain chest X-ray DO Vinnie Stewart Work Phone: Start: 04-13-2021 INTRODUCE OF OTH THERAP SUBST INTO RESP TRACT, VIA OPENING BALBIR STUBBS Start: 04-13-2021 ULTRASONOGRAPHY OF RIGHT AND LEFT HEART, TRANSESOPHAGEAL ANNABELLE BOYD Start: 12-04-2019 Aerobic microbial culture Vinnie Stewart Start: 12-04-2019 End: 12-04-2019 Anaerobic microbial culture Vinnie eduardo Start: 12-04-2019 Investigation of transfusion reaction Vinnie Stewart Start: 12-04-2019 X-ray of left foot Vinnie Stewart Plan of Treatment Date Care Activity Detail Author Start: 02-05-2024 [facility] Start: 02-04-2024 Physical therapy procedure [facility] Start: 01-30-2024 Referral to vascular surgeon [facility] Start: 01-29-2024 Referral to vascular surgeon [facility] Start: 01-29-2024 Referral to web site admin [facility] Start: 01-28-2024 Referral to infectio us diseases physician [facility] Start: 01-28-2024 Hospital admission [facility] Start: 01-28-2024 Referral to hospice care transitions coordinator [facility] Start: 02-23-2023 [facility] Start: 02-22-2023 [facility] Start: 02-21-2023 [facility] Start: 02-20-2023 [facility] Start: 02-19-2023 [facility] Start: 02-18-2023 Blood chemistry [facility] Start: 02-18-2023 [facility] Start: 02-17-2023 Blood chemistry [facility] Start: 02-17-2023 [facility] Start: 02-16-2023 Blood chemistry [facility] Start: 02-16-2023 [facility] Start: 02-15-2023 Blood chemistry [facility] Start: 02-15-2023 [facility] Start: 02-14-2023 Blood chemistry [facility] Start: 02-14-2023 End: 02-14-2023 [facility] Start: 02-14-2023 [facility] Start: 02-13-2023 Hospital admission [facility] Start: 02-13-2023 Physical therapy procedure [facility] Start: 02-13-2023 Referral to occupati onal therapist [facility] Start: 02-13-2023 [facility] Patient Education [facility] Work Phone: Patient referral [facility] Work Phone: [facility] Immunizations Immunization Date Immunization Notes Care Provider Fa cili 08-23-2021 COVID-19 Vaccine Pfizer - Documentation Purposes Only Vinnie Stewart Other [facility] 08-10-2021 influenza, seasonal, injectable Vinnie Stewart Other [facility] 01-14-2021 COVID-19 Vaccine Pfizer - Documentation Purposes Only Vinnie Stewart Other [facility] 01-04-2021 COVID-19 Vaccine Moderna - Documentation Purposes Only Vinnie Stewart Other [facility] 12-24-2020 COVID-19 Vaccine Pfizer - Documentation Purposes Only Vinnie Stewart Other [facility] 10-19-2020 pneumococcal conjugate vaccine, 13 valent Vinnie Stewart Other [facility] 08-16-2018 zoster vaccine recombinant Vinnie Stewart Other [facility] 08-23-2016 pneumococcal polysaccharide vaccine, 23 valent Vinnie Stewart Other [facility] 08-21-2016 influenza, injectable, quadrivalent, preservative free DO Vinnie Stewart Work Phone: [facility] 08-21-2016 influenza, injectable, quadrivalent, contains preservative Vinnie Stewart Other [employer] Other NEGATED: Highlighted row has not occurred! 5 influenza, injectable, quadrivalent, contains preservative Patient Objection Vinnie Stewart Other [employer] Other Payers Date Payer Category Payer Medicare [id number] 54a [id number] 2019 Self-pay [id number] 1959 Medicaid [id number] 1959 Unknown [id number] 1954 Unknown [id number] 2.16.8 40.1.310616.3.579.2.647 1954 Unknown [id number] 2.16.84 0.1.377311.3.579.2.593 1954 Unknown [id number] 2.16.84 0.1.751600.3.579.2.593 1954 Unknown [id number] 2.16.84 0.1.475400.3.579.2.593 1954 Unknown [id number] 2.16.84 0.1.909456.3.579.2.593 1954 Unknown [id number] 2.16.84 0.1.224371.3.579.2.593 1954 Unknown [id number] 2.16.84 0.1.924617.3.579.2.593 1954 Unknown [id number] 2.16.84 0.1.763378.3.579.2.593 1954 Unknown [id number] 2.16.84 0.1.812393.3.579.2.593 1954 Unknown [id number] 2.16.84 0.1.212387.3.579.2.593 1954 Unknown [id number] 2.16.84 0.1.173474.3.579.2.593 1954 Unknown [id number] 2.16.84 0.1.574024.3.579.2.593 1954 Unknown [id number] 2.16.84 0.1.112463.3.579.2.593 1954 Unknown [id number] 2.16.84 0.1.349376.3.579.2.593 1954 Unknown [id number] 2.16.84 0.1.689223.3.579.2.593 1954 Unknown [id number] 2.16.84 0.1.069450.3.579.2.593 1954 Unknown [id number] 2.16.84 0.1.667047.3.579.2.593 1954 Unknown [id number] 2.16.84 0.1.741848.3.579.2.593 1954 Unknown [id number] 2.16.84 0.1.078454.3.579.2.593 1954 Unknown [id number] 2.16.84 0.1.204367.3.579.2.593 1954 Unknown [id number] 2.16.84 0.1.193035.3.579.2.593 1954 Unknown [id number] 2.16.84 0.1.138610.3.579.2.593 1954 Unknown [id number] 2.16.84 0.1.194290.3.579.2.593 1954 Unknown [id number] 2.16.84 0.1.209564.3.579.2.593 1954 Unknown [id number] 2.16.84 0.1.748071.3.579.2.593 1954 Unknown [id number] 2.16.84 0.1.076843.3.579.2.593 1954 Unknown [id number] 2.16.84 0.1.504181.3.579.2.593 1954 Unknown [id number] 2.16.84 0.1.971659.3.579.2.593 1954 Unknown [id number] 2.16.84 0.1.702580.3.579.2.593 1954 Unknown [id number] 2.16.84 0.1.924060.3.579.2.593 1954 Unknown [id number] 2.16.84 0.1.206402.3.579.2.593 1954 Unknown [id number] 2.16.84 0.1.675916.3.579.2.593 1954 Unknown [id number] 2.16.84 0.1.007768.3.579.2.593 1954 Unknown [id number] 2.16.84 0.1.396406.3.579.2.593 1954 Unknown [id number] 2.16. 840.1.782265.3.579.2.732 1954 Unknown [id number] 2.16.8 40.1.239373.3.579.2.1286 Unknown [id number] Unknown [id number] 2.16.8 40.1.864769.3.579.2.531 Unknown [id number] 2.16.8 40.1.425790.3.579.2.531 Unknown [id number] 2.16.8 40.1.973703.3.579.2.531 Unknown [id number] 2.16.8 40.1.796124.3.579.2.531 Unknown [id number] 2.16.8 40.1.980745.3.579.2.531 Social History Date Type Detail Facility Start: 12-18-2019 End: 01-30-2024 Tobacco smoking status NHIS Ex-smoker (finding) [facility] Start: 1955 Sex Assigned At Male F [facility] Sex Assigned At Sex Assigned At Bir th [employer] Other Medical Equipment Procedure Code Equipment Code Equipment Origin al Text Equipment Identifier Dates Insertion, catheter, dialysis, tunneled, with imaging guidance Double-lumen haemodialysis catheter, implantable [id number] [facility] Start: 01-31-2024 Pen Lissie 32G X 4 MM Start: 03-21-2022 Goals Date Patient Goal Desired Activity /State Functional Status Date Assessment Result Facility 02-05-2024 Functional status Patient at Baseline [facility] Work Phone: 02-14-2023 Functional status Patient at Baseline [facility] Work Phone: Mental Status Date Assessment Result Facility 02-05-2024 Cognitive function Cognitive Sta tus Patient at Baseline [facility] Work Phone: 02-14-2023 Cognitive function Cognitive Sta tus Patient at Baseline [facility] Work Phone: Clinical Notes 04-18-2021 to 02-05-2024 Note Date & Type Note Facility 02-05-2024 Progress note Note Date/Time February 04, 2024 7:59pm [facility] [address] [place], [place] [address] Hospitalist Progress Note Signed Patient: Adwoa Porter MR#: [id number] : 1955 Acct:[id number] Age/Sex: 68 / M Adm Date: 4 Loc: Room: [address] [place] [address] Type: ADM IN Attending Dr: Swathi Burnham MD Copies to: ~ Date of Service: 02/04/2024 Subjective Subjective Narrative: Patient was seen and examined at bedside this afternoon. No new complaints. Physical Examination: GENERAL APPEARANCE: Alert, up in bed AAOx3 HEENT: NCAT, mildly dry mucous membrane CARDIAC: Normal S1 and S2. Somewhat distant heart sounds, possible systolic murmur at the left heart border noted LUNGS: Clear to auscultation bilaterally. no wheeze/rhonchi/rales ABDOMEN: Protuberant, somewhat obese but nontender abdomen EXTREMITIES: Some chronic venous stasis changes bilaterally, his left lower extremity has dressing in place to the left foot and significant pitting edema up through the knee. Wound VAC present. His left upper extremity tenderness noted on his right but not tender and not pitting in nature NEUROLOGICAL: No focal deficits PSYCHIATRIC: Appropriate mood and affect Assessment and plan: 1. Acute kidney injury on chronic kidney disease stage III -underwent first cycle of dialysis on February 03 Probably due to mucous and toxicity 2. Chronic systolic congestive heart failure with reduced ejection fraction - status post pacer ICD, currently compensated 3. Paroxysmal atrial fibrillation 4. COPD 5. Insulin-dependent diabetes mellitus type 2 6. Hypothyroidism 7. Hyperlipidemia 8 Essential hypertension 9. Anemia of chronic kidney disease 10. Paraproteinemia 11. Hyponatremia 12. Leg infected wound with cellulitis and infected wound, ID is following Exam Physical Exam Vital Signs: Temp Pulse Resp BP Pulse Ox O2 Del Method O2 Flow Rate 35.8 C L 46 L 18 119/78 97 Room Air 2 02/04/24 16:56 02/04/24 16:56 02/04/24 16:56 02/04/24 16:56 02/04/24 16:56 02/04/24 16:56 02/04/24 16:31 FiO2 10 02/01/24 11:52 Objective Lab Results 02/03/24 05:55 02/04/24 06:00 Meds Allergies and Active Meds Allergies LUPIS Inhibitors Allergy (Unknown, Verified 01/08/24 05:36) Cough Active Meds: Active Medications Generic Name Dose Route Start Last Admin Trade Name Freq PRN Reason Stop Dose Admin Hydrocodone Bitart/Acetaminophen 1 tab 01/28/24 21:44 02/04/24 10:03 Hydrocodone/Acetaminophen 5-325 Mg Tablet PO 1 tab TID PRN Administration Pain Albuterol 2.5 mg 01/28/24 21:49 Albuterol Neb 2.5 Mg/3 Ml Vial.Neb INHALATION 01/27/25 21:48 Q4H PRN breathing Apixaban 2.5 mg 02/01/24 21:00 02/04/24 10:08 Apixaban 2.5 Mg Tablet PO 01/31/25 20:59 Not Given BID RACHANA Aspirin 81 mg 02/01/24 09:00 02/04/24 16:03 Aspirin 81 Mg Tablet.Dr PO 01/31/25 08:59 Not Given DAILY RACHANA Atorvastatin Calcium 80 mg 01/29/24 09:00 02/04/24 16:03 Atorvastatin 80 Mg Tablet PO 01/28/25 08:59 Not Given DAILY RACHANA Budesonide/Formoterol Fumarate 2 puff 02/01/24 09:00 Budesonide/Formoterol 160-4.5 Mcg 60 Puff/6 Gm Hfa.Aer.Ad INHALATION 01/31/25 08:59 BID RACHANA Carvedilol 12.5 mg 01/29/24 09:00 02/04/24 10:08 Carvedilol 12.5 Mg Tablet PO 01/28/25 08:59 Not Given BID RACHANA Cyanocobalamin 1,000 mcg 02/01/24 09:00 02/04/24 16:03 Cyanocobalamin 1,000 Mcg Tablet PO 01/31/25 08:59 Not Given DAILY RACHANA Gabapentin 200 mg 01/31/24 21:14 02/03/24 21:04 Gabapentin 100 Mg Capsule PO 01/30/25 21:59 200 mg TID PRN Administration nerve pain Heparin Sodium (Porcine) 500 unit 01/31/24 22:00 02/04/24 16:38 Heparin-Lock 500 Unit/5 Ml Syringe IV-PUSH 01/30/25 21:59 Not Given QSHIFT [facility] Heparin Sodium (Porcine) 3,800 unit 01/31/24 16:13 02/04/24 15:03 Heparin 10,000 Unit/10 Ml Vial IV 01/28/25 14:06 3,800 unit PRN PRN Administration Dialysis Hydralazine HCl 50 mg 01/28/24 22:00 02/04/24 14:30 Hydralazine 50 Mg Tablet PO 01/27/25 21:59 Not Given TID RACHANA Sodium Chloride 1,000 mls @ 0 mls/hr 01/29/24 14:07 02/02/24 12:18 0.9% Sodium Chloride 1,000 Ml MISCELLANE 01/28/25 14:06 Infused .Q0M PRN Infusion Dialysis As Directed Sodium Chloride 1,000 mls @ 0 mls/hr 01/30/24 08:36 02/04/24 15:05 0.9% Sodium Chloride 1,000 Ml MISCELLANE 01/29/25 08:35 Infused .Q0M PRN Infusion Dialysis As Directed Linezolid 600 mg in 300 mls @ 300 mls/hr 02/03/24 02:30 02/04/24 17:45 Zyvox IV Infused Q12H RACHANA Infusion Ertapenem 0.5 gm/ Sodium 100 mls @ 200 mls/hr 02/03/24 14:00 02/04/24 17:56 Chloride IV 02/02/25 13:59 200 mls/hr Q24H RACHANA Administration Sodium Chloride 1,000 mls @ 75 mls/hr 02/04/24 08:15 02/04/24 08:04 0.9% Sodium Chloride 1,000 Ml IV 02/03/25 08:14 100 mls/hr .[id number] RACHANA Administration Insulin Aspart 0 units 01/28/24 22:45 02/04/24 17:13 Insulin Aspart 300 Units/3 Ml Insuln.Pen SUBCUT 01/27/25 22:44 Not Given TID.WM.HS [facility] Protocol Isosorbide Dinitrate 20 mg 01/29/24 09:00 02/04/24 10:08 Isosorbide Dinitrate 20 Mg Tablet PO 01/28/25 08:59 Not Given BID RACHANA Levothyroxine Sodium 50 mcg 01/30/24 06:30 02/04/24 06:11 Levothyroxine 50 Mcg Tablet PO 01/29/25 06:29 50 mcg DAILY@0630 RACHANA Administration Loperamide HCl 2 mg 01/30/24 10:32 02/01/24 13:28 Loperamide 2 Mg Capsule PO 01/29/25 10:31 2 mg Q2H PRN Administration Diarrhea Nitroglycerin 0.4 mg 01/28/24 21:44 Nitroglycerin 0.4 Mg Tab.Subl SUBLINGUAL 01/27/25 21:43 Q5MIN.X3 PRN Chest Pain Nystatin 1 applic 01/30/24 09:00 02/04/24 18:42 Nystatin 100,000 Unit/Gram Powder 15 Gm Bottle TOPICAL 01/29/25 08:59 1 applic QID RACHANA Administration Ondansetron HCl 4 mg 02/01/24 14:35 Ondansetron 4 Mg/2 Ml Vial IV-PUSH 01/31/25 14:34 Q4H PRN Nausea And Vomiting Sodium Chloride 0 ml 01/29/24 14:07 02/02/24 12:17 Sodium Chloride 0.9 % 10 Ml Syringe IV-PUSH 01/28/25 14:06 10 ml PRN PRN Administration Flush Sodium Chloride 0 ml 01/30/24 08:36 02/04/24 15:02 Sodium Chloride 0.9 % 10 Ml Syringe IV-PUSH 01/29/25 08:35 40 ml PRN PRN Administration Flush Sodium Chloride 0 ml 01/31/24 22:00 02/04/24 16:38 Sodium Chloride 0.9 % 10 Ml Syringe IV-PUSH 01/30/25 21:59 10 ml QSHIFT RACHANA Administration Vitamin D 50 mcg 02/01/24 09:00 02/04/24 16:03 Cholecalciferol 25 Mcg (1,000 Units) Tablet PO 01/31/25 08:59 Not Given DAILY RACHANA Zinc Oxide 1 applic 01/29/24 00:31 02/01/24 09:09 Zinc Oxide 20% Ointment 56 Gm Tube TOPICAL 01/28/25 00:30 1 applic PRN PRN Administration Skin Irritation A&P - Hospitalist Assessment/Plan (1) Acute kidney injury superimposed on CKD: Plan as above Documented By: Swathi Burnham MD 02/04/241956 Signed By: <Electronically signed by Swathi Burnham MD> 02/05/24 1529 [facility] Work Phone: [phone] 293-421403-19-2024 Progress note Author Simba Kaufman [facility] February 05, 2024 1:04pm Note Date/Time February 05, 2024 1:0 4pm [facility] [address] [place] [address] Nephrology Progress Note Signed Patient: Adwoa Porter MR#: [id number] : 1955 Acct:[id number] Age/Sex: 68 / M Adm Date: 4 Loc: Room: [address] [place] [address] Type: ADM IN Attending Dr: Swathi Burnham MD Copies to: ~ Date of Service: 02/05/2024 Subjective Subjective Narrative: This is 68-year-old male patient with past medical history of systolic heart failure ejection fraction 10 to 15%, CKD stage III baseline creatinine around 1.5 mg deciliter last year, type 2 diabetes, hyperlipidemia, AICD in place, hypertension, COPD. Patient was admitted recently to [facility] for septic shock from cellulitis. Patient was stabilized and discharged to SNF withamikacin and 2 other antibiotics. Lab at SNF revealed SHIRA, hyperkalemia and hyponatremia and patient was sent to [facility]. Lab work this morning revealed potassium 5.3 mg deciliter, BUN 105, serum bicarb 15,potassium 6.1, sodium 123, hemoglobin 9.9 g deciliter, white cell count 18.8. Chest x-ray at admission revealed left basilar infiltrate with possible effusion. Lab also revealed high BNP at 1600. Renal team is consulted for acute kidney injury. He underwent a diagnostic angiogram by vascular surgery which showed occluded left femoral artery occluded left tibial anterior artery. Hemodialysis was started January 28 for severe SHIRA, hyperkalemia and hyponatremia along with oliguria. Interim History Patient was seen and examined at bedside. Denies any chest pain palpitation cough nausea vomit diarrhea and shortness of breath. Exam Physical Exam Vital Signs: Temp Pulse Resp BP Pulse Ox O2 Del Method O2 Flow Rate 97.0 F L 88 16 119/67 100 Nasal Cannula 2 02/05/24 11:46 02/05/24 11:46 02/05/24 11:46 02/05/24 11:46 02/05/24 11:46 02/05/24 11:46 02/05/24 08:45 FiO2 10 02/01/24 11:52 Narrative: General: Appears comfortable and not in distress Heart: S1-S2, no rub Lung: Bilateral air entry, no wheezing or crackles Abdomen: Soft, positive bowel sounds Extremities: 1+ edema, no cyanosis Head: Atraumatic, normocephalic Ear: No gross hearing Deficit or external ear redness Eyes: No pallor or redness Neck: No JVD or visible mass Skin: No rashes , warm to touch SETTER OFF: Awake,Alert, following simple command Musculoskeletal: No joint swelling or limitation of movement Psychiatric: Cooperative, normal mood and affect Objective Intake and Output I&O: Intake & Output 02/02/24 02/03/24 02/04/24 02/05/24 23:59 23:59 23:59 23:59 Intake Total 1750 / 1750 1900 / 1900 2450 / 2450 250 / 250 Output Total 2600 / 2600 0 / 0 2508 / 2508 0 / 0 Balance -850 / -850 1900 / 1900 -58 / -58 250 / 250 Weight 95.5 kg 93.7 kg 95.1 kg 95.4 kg Meds and Allergies Meds: Active Medications Hydrocodone Bitart/Acetaminophen (Hydrocodone/Acetaminophen 5-325 Mg Tablet) 1 tab PO TID PRN PRN Reason: Pain Last Admin: 02/05/24 09:13 Dose: 1 tab Albuterol (Albuterol Neb 2.5 Mg/3 Ml Vial.Neb) 2.5 mg INHALATION Q4H PRN PRN Reason: breathing Stop: 01/27/25 21:48 Apixaban (Apixaban 2.5 Mg Tablet) 2.5 mg PO BID RACHANA Stop: 01/31/25 20:59 Last Admin: 02/05/24 09:12 Dose: 2.5 mg Aspirin (Aspirin 81 Mg Tablet.) 81 mg PO DAILY RACHANA Stop: 01/31/25 08:59 Last Admin: 02/05/24 09:12 Dose: 81 mg Atorvastatin Calcium (Atorvastatin 80 Mg Tablet) 80 mg PO DAILY RACHANA Stop: 01/28/25 08:59 Last Admin: 02/05/24 09:12 Dose: 80 mg Budesonide/Formoterol Fumarate (Budesonide/Formoterol 160-4.5 Mcg 60 Puff/6 Gm Hfa.Aer.Ad) 2 puff INHALATION BID [facility] Stop: 01/31/25 08:59 Calcitriol (Calcitriol 0.25 Mcg Capsule) 0.25 mcg PO MoWeFr@0900 RACHANA Stop: 02/05/25 08:59 Carvedilol (Carvedilol 12.5 Mg Tablet) 12.5 mg PO BID [facility] Stop: 01/28/25 08:59 Last Admin: 02/05/24 09:13 Dose: 12.5 mg Cyanocobalamin (Cyanocobalamin 1,000 Mcg Tablet) 1,000 mcg PO DAILY RACHANA Stop: 01/31/25 08:59 Last Admin: 02/05/24 09:12 Dose: 1,000 mcg Gabapentin (Gabapentin 100 Mg Capsule) 200 mg PO TID PRN PRN Reason: nerve pain Stop: 01/30/25 21:59 Last Admin: 02/05/24 09:12 Dose: 200 mg Heparin Sodium (Porcine) (Heparin-Lock 500 Unit/5 Ml Syringe) 500 unit IV-PUSH QSHIFT [facility] Stop: 01/30/25 21:59 Last Admin: 02/05/24 05:06 Dose: Not Given Heparin Sodium (Porcine) (Heparin 10,000 Unit/10 Ml Vial) 3,800 unit IV PRN PRN PRN Reason: Dialysis Stop: 01/28/25 14:06 Last Admin: 02/04/24 15:03 Dose: 3,800 unit Hydralazine HCl (Hydralazine 50 Mg Tablet) 50 mg PO TID [facility] Stop: 01/27/25 21:59 Last Admin: 02/05/24 09:13 Dose: 50 mg Sodium Chloride (0.9% Sodium Chloride 1,000 Ml) 1,000 mls @ 0 mls/hr MISCELLANE.Q0M PRN PRN Reason: Dialysis Stop: 01/28/25 14:06 Last Infusion: 02/02/24 12:18 Dose: Infused Sodium Chloride (0.9% Sodium Chloride 1,000 Ml) 1,000 mls @ 0 mls/hr MISCELLANE.Q0M PRN PRN Reason: Dialysis Stop: 01/29/25 08:35 Last Infusion: 02/04/24 15:05 Dose: Infused Ertapenem 0.5 gm/ Sodium (Chloride) 100 mls @ 200 mls/hr IV Q24H [facility] Stop: 02/02/25 13:59 Last Admin: 02/04/24 17:56 Dose: 200 mls/hr Insulin Aspart (Insulin Aspart 300 Units/3 Ml Insuln.Pen) 0 units SUBCUT TID.WM.HS [facility]; Protocol Stop: 01/27/25 22:44 Last Admin: 02/05/24 09:15 Dose: 3 units Isosorbide Dinitrate (Isosorbide Dinitrate 20 Mg Tablet) 20 mg PO BID [facility] Stop: 01/28/25 08:59 Last Admin: 02/05/24 09:12 Dose: 20 mg Levothyroxine Sodium (Levothyroxine 50 Mcg Tablet) 50 mcg PO DAILY@0630 [facility] Stop: 01/29/25 06:29 Last Admin: 02/05/24 05:45 Dose: 50 mcg Linezolid (Linezolid 600 Mg Tablet) 600 mg PO BID [facility] Loperamide HCl (Loperamide 2 Mg Capsule) 2 mg PO Q2H PRN PRN Reason: Diarrhea Stop: 01/29/25 10:31 Last Admin: 02/05/24 11:33 Dose: 2 mg Nitroglycerin (Nitroglycerin 0.4 Mg Tab.Subl) 0.4 mg SUBLINGUAL Q5MIN.X3 PRN PRN Reason: Chest Pain Stop: 01/27/25 21:43 Nystatin (Nystatin 100,000 Unit/Gram Powder 15 Gm Bottle) 1 applic TOPICAL QID [facility] Stop: 01/29/25 08:59 Last Admin: 02/05/24 08:03 Dose: 1 applic Ondansetron HCl (Ondansetron 4 Mg/2 Ml Vial) 4 mg IV-PUSH Q4H PRN PRN Reason: Nausea And Vomiting Stop: 01/31/25 14:34 Sodium Chloride (Sodium Chloride 0.9 % 10 Ml Syringe) 0 ml IV-PUSH PRN PRN PRN Reason: Flush Stop: 01/28/25 14:06 Last Admin: 02/02/24 12:17 Dose: 10 ml Sodium Chloride (Sodium Chloride 0.9 % 10 Ml Syringe) 0 ml IV-PUSH PRN PRN PRN Reason: Flush Stop: 01/29/25 08:35 Last Admin: 02/04/24 15:02 Dose: 40 ml Sodium Chloride (Sodium Chloride 0.9 % 10 Ml Syringe) 0 ml IV-PUSH QSHIFT RACHANA Stop: 01/30/25 21:59 Last Admin: 02/05/24 05:45 Dose: 10 ml Vitamin D (Cholecalciferol 25 Mcg (1,000 Units) Tablet) 50 mcg PO DAILY RACHANA Stop: 01/31/25 08:59 Last Admin: 02/05/24 09:12 Dose: 50 mcg Zinc Oxide (Zinc Oxide 20% Ointment 56 Gm Tube) 1 applic TOPICAL PRN PRN PRN Reason: Skin Irritation Stop: 01/28/25 00:30 Last Admin: 02/05/24 11:32 Dose: 1 applic Allergies LUPIS Inhibitors Allergy (Unknown, Verified 01/08/24 05:36) Cough Results - Nephrology Labs 02/05/24 04:40 02/05/24 04:40 Labs: 02/05/24 04:40 BUN 35 H Creatinine 2.63 H D Phosphorus 3.9 Albumin 2.4 L Radiology Impressions Impressions - last 24 hours: Any impression(s) listed above is documentation that was entered by the reading physician into a diagnostic report(s) for Adwoa Porter. I have reviewed the report(s) and am incorporating any findings in the treatment plan of this patient where applicable. A&P - Nephrology Assessment/Plan (1) SHIRA (acute kidney injury): Plan: Acute kidney injury is likely amikacin induced ATN. Baseline creatinine around 1.4 mg deciliter. Patient likely has CKD from cardiorenal syndrome. Serum creatinine up to 5.3 mg/dL. Patient has been anuric since admission along with hyperkalemia, metabolic acidosis and hyponatremia (2) Hyponatremia: Plan: This is likely related to SHIRA and fluid overload. Serum sodium level today 123 mmol/L. Patient has been on normal saline 100 cc/h since admission (3) Hyperkalemia: Plan: This is likely related to amikacin effect and SHIRA along with metabolic acidosis. Patient was given 2 doses of Lokelma yesterday but potassium level is higher today at 6.1 (4) Metabolic acidosis: Plan: This is likely related to SHIRA. Serum bicarb level today 15. Patient has been anuric (5) Cellulitis of lower leg: Plan: Patient was admitted to [facility] recently with septic shock from cellulitis. Patient was discharged to SNF with amikacin, ceftriaxone and Zyvox. Currently amikacin and hold due to SHIRA. ID is following (6) Type 2 diabetes mellitus with diabetic chronic kidney disease: Assessment/Problem Details: He has insulin-dependent type 2 diabetes mellitus. (7) Hypertensive chronic kidney disease with stage 1 through stage 4 chronic kidney disease, or unspecified chronic kidney disease: Assessment/Problem Details: Blood pressure is controlled. He was taking hydralazine, Isordil and carvedilolat home. Plan * No need for dialysis today. Will continue to monitor for renal recovery. * ID is following for leg wound infection. Inpatient pharmacy to dose antibiotics for SHIRA * Continue DM management as per the primary hospitalist team. The goal of blood sugar between 100 to 150 g/dL. * Continue current dose of the hydralazine, Isordil and carvedilol. * Check CBC and renal function panel in a.m. prior to hemodialysis to adjust order as needed Renal team will continue to follow. Call if any question or concern. Documented By: Simba Kaufman MD 02/05/24 8830 Signed By: <Electronically signed by Simba Kaufman MD> 02/05/24 1309 [facility] Work Phone: [phone]) 294-929503-19-2024 Progress note Author Farhan Schofield [facility] February 05, 2024 9:20am Note Date/Time February 05, 2024 9:2 0am [facility] [address] [place] [address] Infect. Disease Progress Note Signed Patient: Adwoa Porter MR#: [id number] : 1955 Acct:[id number] Age/Sex: 68 / M Adm Date: 4 Loc: 4 Room: [address] [place] [address] Type: ADM IN Attending Dr: Swathi Burnham MD Copies to: ~ Date of Service: 02/05/2024 Subjective Interval history: Patient is acting go home. States he wants to be with his dog. Patient continues to need dialysis. Exam Physical Exam Vital Signs: Temp Pulse Resp BP Pulse Ox O2 Del Method O2 Flow Rate 97.3 F L 85 18 115/74 100 Nasal Cannula 2 02/05/24 03:33 02/05/24 03:33 02/05/24 03:33 02/05/24 03:33 02/05/24 03:33 02/05/24 03:33 02/05/24 03:33 FiO2 10 02/01/24 11:52 Narrative: Constitutional Exam: no acute distress Head Exam: normocephalic and atraumatic Eye Exam: EOMI and PERRL ENT Exam: mucous membranes moist Neck Exam: supple, no lymphadenopathy Chest Wall: new R IJ HD cath Respiratory Exam: no accessory muscle use or no respiratory distress, Lungs clear bilaterally Cardiovascular exam: RR GI/Abdominal Exam: soft, no tenderness, no distention Skin Exam: Bilateral foot dressings clean dry and intact Neurological Exam: no focal deficits, alert and oriented X3 Objective Labs CBC/BMP: CBC, BMP 02/05/24 04:40 Corrected WBC 8.9 Uncorrected WBC Count 8.9 RBC 2.84 L Hgb 7.6 L Hct 22.6 L Plt Count 180 Sodium 130 L Potassium 3.7 Chloride 95 L Carbon Dioxide 27.6 Anion Gap 11.1 BUN 35 H Creatinine 2.63 H D Calcium 7.0 L Labs: 02/05/24 04:40 BUN 35 H Creatinine 2.63 H D Microbiology Microbiology: Microbiology - Results from entire visit 01/29/24 20:30 Urine - Voided Urine Culture - Final Klebsiella variicola 01/29/24 09:50 Foot,Left - Drainage Superficial Wound Culture - Final Light Normal Skin Cedric 2 Days Allergies and Medications Allergies and Active Meds Allergies LUPIS Inhibitors Allergy (Unknown, Verified 01/08/24 05:36) Cough Active Medications Hydrocodone Bitart/Acetaminophen (Hydrocodone/Acetaminophen 5-325 Mg Tablet) 1 tab PO TID PRN PRN Reason: Pain Last Admin: 02/05/24 09:13 Dose: 1 tab Albuterol (Albuterol Neb 2.5 Mg/3 Ml Vial.Neb) 2.5 mg INHALATION Q4H PRN PRN Reason: breathing Stop: 01/27/25 21:48 Apixaban (Apixaban 2.5 Mg Tablet) 2.5 mg PO BID RACHANA Stop: 01/31/25 20:59 Last Admin: 02/05/24 09:12 Dose: 2.5 mg Aspirin (Aspirin 81 Mg Tablet.Dr) 81 mg PO DAILY [facility] Stop: 01/31/25 08:59 Last Admin: 02/05/24 09:12 Dose: 81 mg Atorvastatin Calcium (Atorvastatin 80 Mg Tablet) 80 mg PO DAILY RACHANA Stop: 01/28/25 08:59 Last Admin: 02/05/24 09:12 Dose: 80 mg Budesonide/Formoterol Fumarate (Budesonide/Formoterol 160-4.5 Mcg 60 Puff/6 Gm Hfa.Aer.Ad) 2 puff INHALATION BID [facility] Stop: 01/31/25 08:59 Calcitriol (Calcitriol 0.25 Mcg Capsule) 0.25 mcg PO MoWeFr@0900 [facility] Stop: 02/05/25 08:59 Carvedilol (Carvedilol 12.5 Mg Tablet) 12.5 mg PO BID [facility] Stop: 01/28/25 08:59 Last Admin: 02/05/24 09:13 Dose: 12.5 mg Cyanocobalamin (Cyanocobalamin 1,000 Mcg Tablet) 1,000 mcg PO DAILY [facility] Stop: 01/31/25 08:59 Last Admin: 02/05/24 09:12 Dose: 1,000 mcg Gabapentin (Gabapentin 100 Mg Capsule) 200 mg PO TID PRN PRN Reason: nerve pain Stop: 01/30/25 21:59 Last Admin: 02/05/24 09:12 Dose: 200 mg Heparin Sodium (Porcine) (Heparin-Lock 500 Unit/5 Ml Syringe) 500 unit IV-PUSH QSHIFT [facility] Stop: 01/30/25 21:59 Last Admin: 02/05/24 05:06 Dose: Not Given Heparin Sodium (Porcine) (Heparin 10,000 Unit/10 Ml Vial) 3,800 unit IV PRN PRN PRN Reason: Dialysis Stop: 01/28/25 14:06 Last Admin: 02/04/24 15:03 Dose: 3,800 unit Hydralazine HCl (Hydralazine 50 Mg Tablet) 50 mg PO TID [facility] Stop: 01/27/25 21:59 Last Admin: 02/05/24 09:13 Dose: 50 mg Sodium Chloride (0.9% Sodium Chloride 1,000 Ml) 1,000 mls @ 0 mls/hr MISCELLANE.Q0M PRN PRN Reason: Dialysis Stop: 01/28/25 14:06 Last Infusion: 02/02/24 12:18 Dose: Infused Sodium Chloride (0.9% Sodium Chloride 1,000 Ml) 1,000 mls @ 0 mls/hr MISCELLANE.Q0M PRN PRN Reason: Dialysis Stop: 01/29/25 08:35 Last Infusion: 02/04/24 15:05 Dose: Infused Linezolid (Zyvox) 600 mg in 300 mls @ 300 mls/hr IV Q12H [facility] Last Admin: 02/05/24 03:32 Dose: 300 mls/hr Ertapenem 0.5 gm/ Sodium (Chloride) 100 mls @ 200 mls/hr IV Q24H [facility] Stop: 02/02/25 13:59 Last Admin: 02/04/24 17:56 Dose: 200 mls/hr Insulin Aspart (Insulin Aspart 300 Units/3 Ml Insuln.Pen) 0 units SUBCUT TID.WM.HS [facility]; Protocol Stop: 01/27/25 22:44 Last Admin: 02/05/24 09:15 Dose: 3 units Isosorbide Dinitrate (Isosorbide Dinitrate 20 Mg Tablet) 20 mg PO BID [facility] Stop: 01/28/25 08:59 Last Admin: 02/05/24 09:12 Dose: 20 mg Levothyroxine Sodium (Levothyroxine 50 Mcg Tablet) 50 mcg PO DAILY@0630 [facility] Stop: 01/29/25 06:29 Last Admin: 02/05/24 05:45 Dose: 50 mcg Loperamide HCl (Loperamide 2 Mg Capsule) 2 mg PO Q2H PRN PRN Reason: Diarrhea Stop: 01/29/25 10:31 Last Admin: 02/05/24 08:04 Dose: 2 mg Nitroglycerin (Nitroglycerin 0.4 Mg Tab.Subl) 0.4 mg SUBLINGUAL Q5MIN.X3 PRN PRN Reason: Chest Pain Stop: 01/27/25 21:43 Nystatin (Nystatin 100,000 Unit/Gram Powder 15 Gm Bottle) 1 applic TOPICAL QID [facility] Stop: 01/29/25 08:59 Last Admin: 02/05/24 08:03 Dose: 1 applic Ondansetron HCl (Ondansetron 4 Mg/2 Ml Vial) 4 mg IV-PUSH Q4H PRN PRN Reason: Nausea And Vomiting Stop: 01/31/25 14:34 Sodium Chloride (Sodium Chloride 0.9 % 10 Ml Syringe) 0 ml IV-PUSH PRN PRN PRN Reason: Flush Stop: 01/28/25 14:06 Last Admin: 02/02/24 12:17 Dose: 10 ml Sodium Chloride (Sodium Chloride 0.9 % 10 Ml Syringe) 0 ml IV-PUSH PRN PRN PRN Reason: Flush Stop: 01/29/25 08:35 Last Admin: 02/04/24 15:02 Dose: 40 ml Sodium Chloride (Sodium Chloride 0.9 % 10 Ml Syringe) 0 ml IV-PUSH QSHIFT [facility] Stop: 01/30/25 21:59 Last Admin: 02/05/24 05:45 Dose: 10 ml Vitamin D (Cholecalciferol 25 Mcg (1,000 Units) Tablet) 50 mcg PO DAILY [facility] Stop: 01/31/25 08:59 Last Admin: 02/05/24 09:12 Dose: 50 mcg Zinc Oxide (Zinc Oxide 20% Ointment 56 Gm Tube) 1 applic TOPICAL PRN PRN PRN Reason: Skin Irritation Stop: 01/28/25 00:30 Last Admin: 02/05/24 08:03 Dose: 1 applic A&P - Infectious Disease Assessment/Plan (1) Chronic ulcer of left foot with necrosis of muscle: (2) Infected wound: (3) Leukocytosis: (4) Acute kidney injury superimposed on CKD: (5) Diabetes: Plan 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 Superficial culture taken from the left foot drainage here with light normal skin cedric only. Cultures were obtained from [place]. Antibiotics adjusted tolinezolid and ertapenem. Admission leukocytosis has resolved. Will continue ertapenem IV but switch Linezolid to oral. Given concern for underlying osteomyelitis planning prolonged treatment course. Patient will need platelets followed while on Linezolid. Wound care the foot is being managed by Dr. Arroyo in [place]. Documented By: Farhan Schofield MD 02/05/24917 Signed By: <Electronically signed by MD Farhan Schofield> 02/05/24919 [facility] Work Phone: [phone]) 770-674903-18-2024 Progress note Author Valentin Valle [facility] February 04, 2024 6:29pm Note Date/Time February 04, 2024 6:2 9pm [facility] [address] [place] [address] Podiatry Progress Note Signed Patient: Adwoa Porter MR#: [id number] : 1955 Acct:[id number] Age/Sex: 68 / M Adm Date: 4 Loc: Room: [address] [place] [address] Type: ADM IN Attending Dr: Swathi Burnham MD Copies to: ~ Subjective Subjective Date of Service: Date of Service: 02/04/2024 Time of Service: 18:26 Narrative: Patient was seen resting comfortably in bed with no new complaints. Patient keeps stating that he wants to go home. Patient was recently revascularized today by Dr. Andrews. Patient currently denies any history of nausea, vomiting, fever or chills. Exam Physical Exam Vital Signs: Temp Pulse Resp BP Pulse Ox O2 Del Method O2 Flow Rate 96.4 F L 46 L 18 119/78 97 Room Air 2 02/04/24 16:56 02/04/24 16:56 02/04/24 16:56 02/04/24 16:56 02/04/24 16:56 02/04/24 16:56 02/04/24 16:31 FiO2 10 02/01/24 11:52 Extrem Other: Vascular: DP and PT pulse nonpalpable left foot. Dermatologic: There is a nonhealing surgical site measuring 6 cm in length by 8 cm in width by 1 cm in depth. There is approximately 70% necrotic dry gangrenous eschar noted. With approximately 30% pink granular tissue noted. There is no evidence of erythema, edema, odor, or purulent drainage noted at this time. 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 Andrews. [facility] skinfl[facility]. Patient's antibiotic therapy is currently being managed by Dr. Schofield andhe is currently taking linezolid and ceftriaxone. Patient is scheduled to have a diagnostic/therapeutic angioplasty on Sunday. I also explained to the patientthat if the patient needs further debridement or a more proximal foot amputationI do not feel comfortable doing that. Patient will need need to follow-up with Dr. Arroyo and Dr. Reyes for further wound care or surgical intervention. I explained to the patient that when he gets discharged they will need to make an appointment with Dr. Arroyo. If patient requires a more proximal foot amputation he may need to be seen and treated by Dr. Arroyo and Dr. Harley zapata to do this procedure. From podiatry standpoint okay to [facility] with current wound care orders. Will continue with currentwound care consisting of applying cleansing with Vashe followed by Adaptic to the wound bed followed by Thera honey sheet and a gauze dressing daily. Patient's foot at this time is stable. Code(s): T81.89XA - Other complications of procedures, not elsewhere classified, initial encounter (3) Infected wound: Plan: Patient is being seen by infectious disease for antibiotic therapy. Code(s): T14.8XXA - Other injury of unspecified body region, initial encounter; L08.9 - Local infection of the skin and subcutaneous tissue, unspecified Plan Plan is previously mentioned under diabetic type II foot with gangrene. Documented By: Valentin Valle DPM 02/04/241825 Signed By: <Electronically signed by NELLY Valle> 02/04/24 1829 [facility] Work Phone: [phone]) 477-627903-18-2024 Progress note Author Simba Kaufman [facility] February 04, 2024 5:59pm Note Date/Time February 04, 2024 1:3 0pm [facility] [address] [place] [address] Nephrology Progress Note Signed Patient: Adwoa Porter MR#: [id number] : 1955 Acct:[id number] Age/Sex: 68 / M Adm Date: 4 Loc: Room: [address] [place] [address] Type: ADM IN Attending Dr: Swathi Burnham MD Copies to: ~ Date of Service: 02/04/2024 Subjective Subjective Narrative: This is 68-year-old male patient with past medical history of systolic heart failure ejection fraction 10 to 15%, CKD stage III baseline creatinine around 1.5 mg deciliter last year, type 2 diabetes, hyperlipidemia, AICD in place, hypertension, COPD. Patient was admitted recently to [facility] for septic shock from cellulitis. Patient was stabilized and discharged to [facility] withamikacin and 2 other antibiotics. Lab at [facility] revealed SHIRA, hyperkalemia and hyponatremia and patient was sent to [facility]. Lab work this morning revealed potassium 5.3 mg deciliter, BUN 105, serum bicarb 15,potassium 6.1, sodium 123, hemoglobin 9.9 g deciliter, white cell count 18.8. Chest x-ray at admission revealed left basilar infiltrate with possible effusion. Lab also revealed high BNP at 1600. Renal team is consulted for acute kidney injury. Patient has been anuric since admission. Currently on 2 Lnasal cannula. I reviewed the current inpatient medications. Currently on ceftriaxone 1 g every 24 hours, linezolid 600 mg every 12 hours. Patient also was given 2 dosesof Lokelma for hyperkalemia. Patient is currently on 100 cc/h normal saline. There has been no NSAID use. No IV contrast exposure. Interval history Patient was seen and examined in his room during hemodialysis. Denies any chestpain palpitation cough nausea vomit diarrhea and shortness of breath. He underwent a diagnostic angiogram by vascular surgery which showed occluded left femoral artery occluded left tibial anterior artery. Hemodialysis was started January 28 for severe SHIRA, hyperkalemia and hyponatremia along with oliguria. Exam Physical Exam Vital Signs: Temp Pulse Resp BP Pulse Ox O2 Del Method O2 Flow Rate 97.6 F 86 18 107/66 95 Room Air 3 02/04/24 12:30 02/04/24 13:19 02/04/24 12:30 02/04/24 13:19 02/04/24 12:30 02/04/24 12:30 02/04/24 08:50 FiO2 10 02/01/24 11:52 Narrative: General: Appears comfortable and not in distress Heart: S1-S2, no rub Lung: Bilateral air entry, no wheezing or crackles Abdomen: Soft, positive bowel sounds Extremities: 1+ edema, no cyanosis Head: Atraumatic, normocephalic Ear: No gross hearing Deficit or external ear redness Eyes: No pallor or redness Neck: No JVD or visible mass Skin: No rashes , warm to touch SETTER OFF: Awake,Alert, following simple command Musculoskeletal: No joint swelling or limitation of movement Psychiatric: Cooperative, normal mood and affect Objective Intake and Output I&O: Intake & Output 02/01/24 02/02/24 02/03/24 02/04/24 23:59 23:59 23:59 23:59 Intake Total 1370 / 1370 1750 / 1750 1800 / 1800 0 / 0 Output Total 280 / 280 2600 / 2600 0 / 0 0 / 0 Balance 1090 / 1090 -850 / -850 1800 / 1800 0 / 0 Weight 91.8 kg 95.5 kg 93.7 kg 95.1 kg Meds and Allergies Meds: Active Medications Hydrocodone Bitart/Acetaminophen (Hydrocodone/Acetaminophen 5-325 Mg Tablet) 1 tab PO TID PRN PRN Reason: Pain Last Admin: 02/04/24 10:03 Dose: 1 tab Albuterol (Albuterol Neb 2.5 Mg/3 Ml Vial.Neb) 2.5 mg INHALATION Q4H PRN PRN Reason: breathing Stop: 01/27/25 21:48 Apixaban (Apixaban 2.5 Mg Tablet) 2.5 mg PO BID [facility] Stop: 01/31/25 20:59 Last Admin: 02/04/24 10:08 Dose: Not Given Aspirin (Aspirin 81 Mg Tablet.) 81 mg PO DAILY RACHANA Stop: 01/31/25 08:59 Last Admin: 02/03/24 08:24 Dose: 81 mg Atorvastatin Calcium (Atorvastatin 80 Mg Tablet) 80 mg PO DAILY RACHANA Stop: 01/28/25 08:59 Last Admin: 02/03/24 08:23 Dose: 80 mg Budesonide/Formoterol Fumarate (Budesonide/Formoterol 160-4.5 Mcg 60 Puff/6 Gm Hfa.Aer.Ad) 2 puff INHALATION BID RACHANA Stop: 01/31/25 08:59 Carvedilol (Carvedilol 12.5 Mg Tablet) 12.5 mg PO BID [facility] Stop: 01/28/25 08:59 Last Admin: 02/04/24 10:08 Dose: Not Given Cyanocobalamin (Cyanocobalamin 1,000 Mcg Tablet) 1,000 mcg PO DAILY [facility] Stop: 01/31/25 08:59 Last Admin: 02/03/24 08:23 Dose: 1,000 mcg Gabapentin (Gabapentin 100 Mg Capsule) 200 mg PO TID PRN PRN Reason: nerve pain Stop: 01/30/25 21:59 Last Admin: 02/03/24 21:04 Dose: 200 mg Heparin Sodium (Porcine) (Heparin-Lock 500 Unit/5 Ml Syringe) 500 unit IV-PUSH QSHIFT [facility] Stop: 01/30/25 21:59 Last Admin: 02/04/24 09:34 Dose: Not Given Heparin Sodium (Porcine) (Heparin 10,000 Unit/10 Ml Vial) 3,800 unit IV PRN PRN PRN Reason: Dialysis Stop: 01/28/25 14:06 Last Admin: 02/02/24 12:08 Dose: 3,800 unit Hydralazine HCl (Hydralazine 50 Mg Tablet) 50 mg PO TID [facility] Stop: 01/27/25 21:59 Last Admin: 02/04/24 10:08 Dose: Not Given Sodium Chloride (0.9% Sodium Chloride 1,000 Ml) 1,000 mls @ 0 mls/hr MISCELLANE.Q0M PRN PRN Reason: Dialysis Stop: 01/28/25 14:06 Last Infusion: 02/02/24 12:18 Dose: Infused Sodium Chloride (0.9% Sodium Chloride 1,000 Ml) 1,000 mls @ 0 mls/hr MISCELLANE.Q0M PRN PRN Reason: Dialysis Stop: 01/29/25 08:35 Last Infusion: 01/31/24 16:59 Dose: Infused Linezolid (Zyvox) 600 mg in 300 mls @ 300 mls/hr IV Q12H [facility] Last Admin: 02/04/24 03:43 Dose: 300 mls/hr Ertapenem 0.5 gm/ Sodium (Chloride) 100 mls @ 200 mls/hr IV Q24H [facility] Stop: 02/02/25 13:59 Last Admin: 02/03/24 14:11 Dose: 200 mls/hr Sodium Chloride (0.9% Sodium Chloride 1,000 Ml) 1,000 mls @ 75 mls/hr IV .[id number] [facility] Stop: 02/03/25 08:14 Last Admin: 02/04/24 08:04 Dose: 100 mls/hr Insulin Aspart (Insulin Aspart 300 Units/3 Ml Insuln.Pen) 0 units SUBCUT TID..[facility]; Protocol Stop: 01/27/25 22:44 Last Admin: 02/04/24 10:07 Dose: 3 units Isosorbide Dinitrate (Isosorbide Dinitrate 20 Mg Tablet) 20 mg PO BID [facility] Stop: 01/28/25 08:59 Last Admin: 02/04/24 10:08 Dose: Not Given Levothyroxine Sodium (Levothyroxine 50 Mcg Tablet) 50 mcg PO DAILY@0630 [facility] Stop: 01/29/25 06:29 Last Admin: 02/04/24 06:11 Dose: 50 mcg Loperamide HCl (Loperamide 2 Mg Capsule) 2 mg PO Q2H PRN PRN Reason: Diarrhea Stop: 01/29/25 10:31 Last Admin: 02/01/24 13:28 Dose: 2 mg Nitroglycerin (Nitroglycerin 0.4 Mg Tab.Subl) 0.4 mg SUBLINGUAL Q5MIN.X3 PRN PRN Reason: Chest Pain Stop: 01/27/25 21:43 Nystatin (Nystatin 100,000 Unit/Gram Powder 15 Gm Bottle) 1 applic TOPICAL QID [facility] Stop: 01/29/25 08:59 Last Admin: 02/04/24 10:08 Dose: 1 applic Ondansetron HCl (Ondansetron 4 Mg/2 Ml Vial) 4 mg IV-PUSH Q4H PRN PRN Reason: Nausea And Vomiting Stop: 01/31/25 14:34 Sodium Chloride (Sodium Chloride 0.9 % 10 Ml Syringe) 0 ml IV-PUSH PRN PRN PRN Reason: Flush Stop: 01/28/25 14:06 Last Admin: 02/02/24 12:17 Dose: 10 ml Sodium Chloride (Sodium Chloride 0.9 % 10 Ml Syringe) 0 ml IV-PUSH PRN PRN PRN Reason: Flush Stop: 01/29/25 08:35 Last Admin: 02/02/24 12:09 Dose: 10 ml Sodium Chloride (Sodium Chloride 0.9 % 10 Ml Syringe) 0 ml IV-PUSH QSHIFT [facility] Stop: 01/30/25 21:59 Last Admin: 02/04/24 09:34 Dose: Not Given Vitamin D (Cholecalciferol 25 Mcg (1,000 Units) Tablet) 50 mcg PO DAILY [facility] Stop: 01/31/25 08:59 Last Admin: 02/03/24 08:22 Dose: 50 mcg Zinc Oxide (Zinc Oxide 20% Ointment 56 Gm Tube) 1 applic TOPICAL PRN PRN PRN Reason: Skin Irritation Stop: 01/28/25 00:30 Last Admin: 02/01/24 09:09 Dose: 1 applic Allergies LUPIS Inhibitors Allergy (Unknown, Verified 01/08/24 05:36) Cough Results - Nephrology Labs 02/03/24 05:55 02/04/24 06:00 Labs: 02/04/24 06:00 BUN 50 H Creatinine 3.41 H D Phosphorus 5.6 H Albumin 2.5 L Radiology Impressions Impressions - last 24 hours: Any impression(s) listed above is documentation that was entered by the reading physician into a diagnostic report(s) for Adwoa Porter. I have reviewed the report(s) and am incorporating any findings in the treatment plan of this patient where applicable. A&P - Nephrology Assessment/Plan (1) SHIRA (acute kidney injury): Plan: Acute kidney injury is likely amikacin induced ATN. Baseline creatinine around 1.4 mg deciliter. Patient likely has CKD from cardiorenal syndrome. Serum creatinine up to 5.3 mg/dL. Patient has been anuric since admission along with hyperkalemia, metabolic acidosis and hyponatremia (2) Hyponatremia: Plan: This is likely related to SHIRA and fluid overload. Serum sodium level today 123 mmol/L. Patient has been on normal saline 100 cc/h since admission (3) Hyperkalemia: Plan: This is likely related to amikacin effect and SHIRA along with metabolic acidosis. Patient was given 2 doses of Lokelma yesterday but potassium level is higher today at 6.1 (4) Metabolic acidosis: Plan: This is likely related to SHIRA. Serum bicarb level today 15. Patient has been anuric (5) Cellulitis of lower leg: Plan: Patient was admitted to [facility] recently with septic shock from cellulitis. Patient was discharged to SNF with amikacin, ceftriaxone and Zyvox. Currently amikacin and hold due to SHIRA. ID is following Plan * No recovery of kidney function. Hemodialysis today as ordered. * ID is following for leg wound infection.. Inpatient pharmacy to dose antibiotics for SHIRA and thrice weekly TTS hemodialysis schedule * Check CBC and renal function panel in a.m. prior to hemodialysis to adjust order as needed Renal team will continue to follow. Call if any question or concern. Documented By: Simba Kaufman MD 02/04/24 1330 Signed By: <Electronically signed by Simba Kaufman MD> 02/04/24 0717 [facility] Work Phone: 1(283) 688-365503-18-2024 Progress note Author Farhan Schofield [facility] February 04, 2024 10:01am Note Date/Time February 04, 2024 10: 01am [facility] [address] [place] [address] Infect. Disease Progress Note Signed Patient: Adwoa Porter MR#: [id number] : 1955 Acct:[id number] Age/Sex: 68 / M Adm Date: 4 Loc: Room: [address] [place] [address] Type: ADM IN Attending Dr: Farhan Hudson DO Copies to: ~ Date of Service: 02/04/2024 Subjective Interval history: Patient status post left leg angiogram with thrombectomy and angioplasty. Patient denies any physical complaints that are new. Exam Physical Exam Vital Signs: Temp Pulse Resp BP Pulse Ox O2 Del Method O2 Flow Rate 97.0 F L 86 16 121/70 99 Nasal Cannula 3 02/04/24 00:00 02/04/24 08:50 02/04/24 08:50 02/04/24 08:50 02/04/24 08:50 02/04/24 08:50 02/04/24 08:50 FiO2 10 02/01/24 11:52 Narrative: Constitutional Exam: no acute distress Head Exam: normocephalic and atraumatic Eye Exam: EOMI and PERRL ENT Exam: mucous membranes moist Neck Exam: supple, no lymphadenopathy Chest Wall: new R IJ HD cath Respiratory Exam: no accessory muscle use or no respiratory distress, Lungs clear bilaterally Cardiovascular exam: RR GI/Abdominal Exam: soft, no tenderness, no distention Skin Exam: Bilateral foot dressings clean dry and intact Neurological Exam: no focal deficits, alert and oriented X3 Objective Labs CBC/BMP: CBC, BMP 02/04/24 06:00 Sodium 130 L Potassium 3.9 Chloride 93 L Carbon Dioxide 27.9 Anion Gap 13.0 BUN 50 H Creatinine 3.41 H D Calcium 7.4 L Labs: 02/04/24 06:00 BUN 50 H Creatinine 3.41 H D Microbiology Microbiology: Microbiology - Results from entire visit 01/29/24 20:30 Urine - Voided Urine Culture - Final Klebsiella variicola 01/29/24 09:50 Foot,Left - Drainage Superficial Wound Culture - Final Light Normal Skin Cedric 2 Days Allergies and Medications Allergies and Active Meds Allergies LUPIS Inhibitors Allergy (Unknown, Verified 01/08/24 05:36) Cough Active Medications Hydrocodone Bitart/Acetaminophen (Hydrocodone/Acetaminophen 5-325 Mg Tablet) 1 tab PO TID PRN PRN Reason: Pain Last Admin: 02/03/24 16:23 Dose: 1 tab Albuterol (Albuterol Neb 2.5 Mg/3 Ml Vial.Neb) 2.5 mg INHALATION Q4H PRN PRN Reason: breathing Stop: 01/27/25 21:48 Apixaban (Apixaban 2.5 Mg Tablet) 2.5 mg PO BID [facility] Stop: 01/31/25 20:59 Last Admin: 02/03/24 21:04 Dose: 2.5 mg Aspirin (Aspirin 81 Mg Tablet.) 81 mg PO DAILY [facility] Stop: 01/31/25 08:59 Last Admin: 02/03/24 08:24 Dose: 81 mg Atorvastatin Calcium (Atorvastatin 80 Mg Tablet) 80 mg PO DAILY [facility] Stop: 01/28/25 08:59 Last Admin: 02/03/24 08:23 Dose: 80 mg Budesonide/Formoterol Fumarate (Budesonide/Formoterol 160-4.5 Mcg 60 Puff/6 Gm Hfa.Aer.Ad) 2 puff INHALATION BID [facility] Stop: 01/31/25 08:59 Carvedilol (Carvedilol 12.5 Mg Tablet) 12.5 mg PO BID [facility] Stop: 01/28/25 08:59 Last Admin: 02/03/24 21:04 Dose: 12.5 mg Cyanocobalamin (Cyanocobalamin 1,000 Mcg Tablet) 1,000 mcg PO DAILY [facility] Stop: 01/31/25 08:59 Last Admin: 02/03/24 08:23 Dose: 1,000 mcg Gabapentin (Gabapentin 100 Mg Capsule) 200 mg PO TID PRN PRN Reason: nerve pain Stop: 01/30/25 21:59 Last Admin: 02/03/24 21:04 Dose: 200 mg Heparin Sodium (Porcine) (Heparin-Lock 500 Unit/5 Ml Syringe) 500 unit IV-PUSH QSHIFT [facility] Stop: 01/30/25 21:59 Last Admin: 02/04/24 09:34 Dose: Not Given Heparin Sodium (Porcine) (Heparin 10,000 Unit/10 Ml Vial) 3,800 unit IV PRN PRN PRN Reason: Dialysis Stop: 01/28/25 14:06 Last Admin: 02/02/24 12:08 Dose: 3,800 unit Hydralazine HCl (Hydralazine 50 Mg Tablet) 50 mg PO TID [facility] Stop: 01/27/25 21:59 Last Admin: 02/03/24 21:04 Dose: 50 mg Sodium Chloride (0.9% Sodium Chloride 1,000 Ml) 1,000 mls @ 0 mls/hr MISCELLANE.Q0M PRN PRN Reason: Dialysis Stop: 01/28/25 14:06 Last Infusion: 02/02/24 12:18 Dose: Infused Sodium Chloride (0.9% Sodium Chloride 1,000 Ml) 1,000 mls @ 0 mls/hr MISCELLANE.Q0M PRN PRN Reason: Dialysis Stop: 01/29/25 08:35 Last Infusion: 01/31/24 16:59 Dose: Infused Linezolid (Zyvox) 600 mg in 300 mls @ 300 mls/hr IV Q12H [facility] Last Admin: 02/04/24 03:43 Dose: 300 mls/hr Ertapenem 0.5 gm/ Sodium (Chloride) 100 mls @ 200 mls/hr IV Q24H [facility] Stop: 02/02/25 13:59 Last Admin: 02/03/24 14:11 Dose: 200 mls/hr Sodium Chloride (0.9% Sodium Chloride 1,000 Ml) 1,000 mls @ 75 mls/hr IV .[id number] [facility] Stop: 02/03/25 08:14 Last Admin: 02/04/24 08:04 Dose: 100 mls/hr Insulin Aspart (Insulin Aspart 300 Units/3 Ml Insuln.Pen) 0 units SUBCUT TID.WM.[facility]; Protocol Stop: 01/27/25 22:44 Last Admin: 02/03/24 21:06 Dose: 3 units Isosorbide Dinitrate (Isosorbide Dinitrate 20 Mg Tablet) 20 mg PO BID [facility] Stop: 01/28/25 08:59 Last Admin: 02/03/24 21:04 Dose: 20 mg Levothyroxine Sodium (Levothyroxine 50 Mcg Tablet) 50 mcg PO DAILY@0630 [facility] Stop: 01/29/25 06:29 Last Admin: 02/04/24 06:11 Dose: 50 mcg Loperamide HCl (Loperamide 2 Mg Capsule) 2 mg PO Q2H PRN PRN Reason: Diarrhea Stop: 01/29/25 10:31 Last Admin: 02/01/24 13:28 Dose: 2 mg Nitroglycerin (Nitroglycerin 0.4 Mg Tab.Subl) 0.4 mg SUBLINGUAL Q5MIN.X3 PRN PRN Reason: Chest Pain Stop: 01/27/25 21:43 Nystatin (Nystatin 100,000 Unit/Gram Powder 15 Gm Bottle) 1 applic TOPICAL QID [facility] Stop: 01/29/25 08:59 Last Admin: 02/04/24 01:09 Dose: 1 applic Ondansetron HCl (Ondansetron 4 Mg/2 Ml Vial) 4 mg IV-PUSH Q4H PRN PRN Reason: Nausea And Vomiting Stop: 01/31/25 14:34 Sodium Chloride (Sodium Chloride 0.9 % 10 Ml Syringe) 0 ml IV-PUSH PRN PRN PRN Reason: Flush Stop: 01/28/25 14:06 Last Admin: 02/02/24 12:17 Dose: 10 ml Sodium Chloride (Sodium Chloride 0.9 % 10 Ml Syringe) 0 ml IV-PUSH PRN PRN PRN Reason: Flush Stop: 01/29/25 08:35 Last Admin: 02/02/24 12:09 Dose: 10 ml Sodium Chloride (Sodium Chloride 0.9 % 10 Ml Syringe) 0 ml IV-PUSH QSHIFT [facility] Stop: 01/30/25 21:59 Last Admin: 02/04/24 09:34 Dose: Not Given Vitamin D (Cholecalciferol 25 Mcg (1,000 Units) Tablet) 50 mcg PO DAILY [facility] Stop: 01/31/25 08:59 Last Admin: 02/03/24 08:22 Dose: 50 mcg Zinc Oxide (Zinc Oxide 20% Ointment 56 Gm Tube) 1 applic TOPICAL PRN PRN PRN Reason: Skin Irritation Stop: 01/28/25 00:30 Last Admin: 02/01/24 09:09 Dose: 1 applic A&P - Infectious Disease Assessment/Plan (1) Chronic ulcer of left foot with necrosis of muscle: (2) Infected wound: (3) Leukocytosis: (4) Acute kidney injury superimposed on CKD: (5) Diabetes: Plan 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 Superficial culture taken from the left foot drainage here with light normal skin cedric only. Cultures were obtained from [place]. Antibiotics adjusted tolinezolid and ertapenem. Admission leukocytosis has improved and today is down to 10.1. Urine culture as above but only 15,000 colonies and sensitive to Invanz. Continuing Invanz and linezolid. Documented By: Farhan Schofield MD 02/04/24 0958 Signed By: <Electronically signed by MD Farhan Schofield> 02/04/24 1001 [facility] Work Phone: 1(831) 489-949103-18-2024 Procedure [facility]03-17-2024 Progress note Author Farhan Hudson [facility] February 03, 2024 4:43pm Note Date/Time February 03, 2024 4:4 3pm [facility] [address] [place] [address] Hospitalist Progress Note Signed Patient: Adwoa Porter MR#: [id number] : 1955 Acct:[id number] Age/Sex: 68 / M Adm Date: 4 Loc: Room: [address] [place] [address] Type: ADM IN Attending Dr: Farhan Hudson DO Copies to: ~ Date of Service: 02/03/2024 Subjective Subjective Narrative: Patient was seen and examined at bedside this afternoon. No new complaints. Physical Examination: GENERAL APPEARANCE: Alert, up in bed AAOx3 HEENT: NCAT, mildly dry mucous membrane CARDIAC: Normal S1 and S2. Somewhat distant heart sounds, possible systolic murmur at the left heart border noted LUNGS: Clear to auscultation bilaterally. no wheeze/rhonchi/rales ABDOMEN: Protuberant, somewhat obese but nontender abdomen EXTREMITIES: Some chronic venous stasis changes bilaterally, his left lower extremity has dressing in place to the left foot and significant pitting edema up through the knee. Wound VAC present. His left upper extremity tenderness noted on his right but not tender and not pitting in nature NEUROLOGICAL: No focal deficits PSYCHIATRIC: Appropriate mood and affect Assessment and plan: 1. Acute kidney injury on chronic kidney disease stage III 2. Chronic systolic congestive heart failure with reduced ejection fraction - status post pacer ICD 3. Paroxysmal atrial fibrillation 4. COPD 5. Insulin-dependent diabetes mellitus type 2 6. Hypothyroidism 7. Hyperlipidemia 8 Essential hypertension 9. Anemia of chronic kidney disease 10. Paraproteinemia 11. Hyponatremia 12. Left upper extremity lymphedema Amikacin toxicity resulting in acute on chronic renal failure. Appreciate nephrology recommendations. Dialysis as needed. Difficult to prognosis long-term but for now assured the patient that he will likely need dialysis for the foreseeable future with guarded prognosis of any significant GFR recovery if anyat all. He does state he has made a bit more urine over the past couple of daysbut still minimal. Antibiotics transitioned to IV ertapenem, Rocephin discontinued. Linezolid 600 mg twice daily IV. Highly resistant Klebsiella vera cola growing from urine. Nystatin for diffuse cellulitis tender anemia with yeast infection on the region has exhibited improvement. His [id number] score is at minimum 5. Labile on Coumadin on recent hospitalization. Subsequently held and I have started Eliquis 2.5 mg twice daily. He actually could receive 5 mg twice daily but will leave this at a lower dose with likely operative intervention sometime this upcoming week. Asymmetric, largely asymptomatic left upper extremity lymphedema is noted. Monitor and consider ultrasound if progressing Resumed gabapentin initially held for acute renal failure at a lower dose. Uptitrate as warranted for symptomatic relief. Exam Physical Exam Vital Signs: Temp Pulse Resp BP Pulse Ox O2 Del Method O2 Flow Rate 97.6 F 85 20 107/65 99 Nasal Cannula 2 02/03/24 15:21 02/03/24 15:21 03/17/24 15:21 02/03/24 15:21 02/03/24 15:21 02/03/24 15:21 02/03/24 15:21 FiO2 10 02/01/24 11:52 Objective Lab Results 02/03/24 05:55 02/03/24 05:55 Meds Allergies and Active Meds Allergies LUPIS Inhibitors Allergy (Unknown, Verified 01/08/24 05:36) Cough Active Meds: Active Medications Generic Name Dose Route Start Last Admin Trade Name Fran PRN Reason Stop Dose Admin Hydrocodone Bitart/Acetaminophen 1 tab 01/28/24 21:44 02/03/24 16:23 Hydrocodone/Acetaminophen 5-325 Mg Tablet PO 1 tab TID PRN Administration Pain Albuterol 2.5 mg 01/28/24 21:49 Albuterol Neb 2.5 Mg/3 Ml Vial.Neb INHALATION 01/27/25 21:48 Q4H PRN breathing Apixaban 2.5 mg 02/01/24 21:00 02/03/24 08:22 Apixaban 2.5 Mg Tablet PO 01/31/25 20:59 2.5 mg BID RACHANA Administration Aspirin 81 mg 02/01/24 09:00 02/03/24 08:24 Aspirin 81 Mg Tablet.Dr PO 01/31/25 08:59 81 mg DAILY RACHANA Administration Atorvastatin Calcium 80 mg 01/29/24 09:00 02/03/24 08:23 Atorvastatin 80 Mg Tablet PO 01/28/25 08:59 80 mg DAILY RACHANA Administration Budesonide/Formoterol Fumarate 2 puff 02/01/24 09:00 Budesonide/Formoterol 160-4.5 Mcg 60 Puff/6 Gm Hfa.Aer.Ad INHALATION 01/31/25 08:59 BID RACHANA Carvedilol 12.5 mg 01/29/24 09:00 02/03/24 08:24 Carvedilol 12.5 Mg Tablet PO 01/28/25 08:59 12.5 mg BID RACHANA Administration Cyanocobalamin 1,000 mcg 02/01/24 09:00 02/03/24 08:23 Cyanocobalamin 1,000 Mcg Tablet PO 01/31/25 08:59 1,000 mcg DAILY RACHANA Administration Gabapentin 200 mg 01/31/24 21:14 02/01/24 15:37 Gabapentin 100 Mg Capsule PO 01/30/25 21:59 200 mg TID PRN Administration nerve pain Heparin Sodium (Porcine) 500 unit 01/31/24 22:00 02/03/24 14:11 Heparin-Lock 500 Unit/5 Ml Syringe IV-PUSH 01/30/25 21:59 Not Given QSHIFT RACHANA Heparin Sodium (Porcine) 3,800 unit 01/31/24 16:13 02/02/24 12:08 Heparin 10,000 Unit/10 Ml Vial IV 01/28/25 14:06 3,800 unit PRN PRN Administration Dialysis Hydralazine HCl 50 mg 01/28/24 22:00 02/03/24 14:12 Hydralazine 50 Mg Tablet PO 01/27/25 21:59 50 mg TID RACHANA Administration Sodium Chloride 1,000 mls @ 0 mls/hr 01/29/24 14:07 02/02/24 12:18 0.9% Sodium Chloride 1,000 Ml MISCELLANE 01/28/25 14:06 Infused .Q0M PRN Infusion Dialysis As Directed Sodium Chloride 1,000 mls @ 0 mls/hr 01/30/24 08:36 01/31/24 16:59 0.9% Sodium Chloride 1,000 Ml MISCELLANE 01/29/25 08:35 Infused .Q0M PRN Infusion Dialysis As Directed Linezolid 600 mg in 300 mls @ 300 mls/hr 02/03/24 02:30 02/03/24 14:55 Zyvox IV 300 mls/hr Q12H RACHANA Administration Ertapenem 0.5 gm/ Sodium 100 mls @ 200 mls/hr 02/03/24 14:00 02/03/24 14:11 Chloride IV 02/02/25 13:59 200 mls/hr Q24H RACHANA Administration Insulin Aspart 0 units 01/28/24 22:45 02/03/24 12:19 Insulin Aspart 300 Units/3 Ml Insuln.Pen SUBCUT 01/27/25 22:44 8 units TID.WM.[facility] RACHANA Administration Protocol Isosorbide Dinitrate 20 mg 01/29/24 09:00 02/03/24 08:23 Isosorbide Dinitrate 20 Mg Tablet PO 01/28/25 08:59 20 mg BID RACHANA Administration Levothyroxine Sodium 50 mcg 01/30/24 06:30 02/03/24 06:02 Levothyroxine 50 Mcg Tablet PO 01/29/25 06:29 50 mcg DAILY@0630 RACHANA Administration Loperamide HCl 2 mg 01/30/24 10:32 02/01/24 13:28 Loperamide 2 Mg Capsule PO 01/29/25 10:31 2 mg Q2H PRN Administration Diarrhea Nitroglycerin 0.4 mg 01/28/24 21:44 Nitroglycerin 0.4 Mg Tab.Subl SUBLINGUAL 01/27/25 21:43 Q5MIN.X3 PRN Chest Pain Nystatin 1 applic 01/30/24 09:00 02/03/24 14:11 Nystatin 100,000 Unit/Gram Powder 15 Gm Bottle TOPICAL 01/29/25 08:59 1 applic QID RACHANA Administration Ondansetron HCl 4 mg 02/01/24 14:35 Ondansetron 4 Mg/2 Ml Vial IV-PUSH 01/31/25 14:34 Q4H PRN Nausea And Vomiting Sodium Chloride 0 ml 01/29/24 14:07 02/02/24 12:17 Sodium Chloride 0.9 % 10 Ml Syringe IV-PUSH 01/28/25 14:06 10 ml PRN PRN Administration Flush Sodium Chloride 0 ml 01/30/24 08:36 02/02/24 12:09 Sodium Chloride 0.9 % 10 Ml Syringe IV-PUSH 01/29/25 08:35 10 ml PRN PRN Administration Flush Sodium Chloride 0 ml 01/31/24 22:00 02/03/24 14:12 Sodium Chloride 0.9 % 10 Ml Syringe IV-PUSH 01/30/25 21:59 10 ml QSHIFT RACHANA Administration Vitamin D 50 mcg 02/01/24 09:00 02/03/24 08:22 Cholecalciferol 25 Mcg (1,000 Units) Tablet PO 01/31/25 08:59 50 mcg DAILY RACHANA Administration Zinc Oxide 1 applic 01/29/24 00:31 02/01/24 09:09 Zinc Oxide 20% Ointment 56 Gm Tube TOPICAL 01/28/25 00:30 1 applic PRN PRN Administration Skin Irritation A&P - Hospitalist Assessment/Plan (1) Acute kidney injury superimposed on CKD: Plan as above Documented By: Farhan Hudson DO 02/03/24 16 39 Signed By: <Electronically signed by Farhan Hudson DO> 02/03/24 1643 [facility] Work Phone: 1([phone]) 126-482703-17-2024 Progress note Author Lia Law [facility] February 03, 2024 11:03am Note Date/Time February 03, 2024 11: 03am [facility] [address] [place] [address] Nephrology Progress Note Signed Patient: Adwoa Porter MR#: [id number] : 1955 Acct:[id number] Age/Sex: 68 / M Adm Date: 4 Loc: Room: [address] [place] [address] Type: ADM IN Attending Dr: Farhan Hudson DO Copies to: ~ Date of Service: 02/03/2024 Subjective Subjective Narrative: This is 68-year-old male patient with past medical history of systolic heart failure ejection fraction 10 to 15%, CKD stage III baseline creatinine around 1.5 mg deciliter last year, type 2 diabetes, hyperlipidemia, AICD in place, hypertension, COPD. Patient was admitted recently to [facility] for septic shock from cellulitis. Patient was stabilized and discharged to [facility] withamikacin and 2 other antibiotics. Lab at [facility] revealed SHIRA, hyperkalemia and hyponatremia and patient was sent to [facility]. Lab work this morning revealed potassium 5.3 mg deciliter, BUN 105, serum bicarb 15,potassium 6.1, sodium 123, hemoglobin 9.9 g deciliter, white cell count 18.8. Chest x-ray at admission revealed left basilar infiltrate with possible effusion. Lab also revealed high BNP at 1600. Renal team is consulted for acute kidney injury. Patient has been anuric since admission. Currently on 2 Lnasal cannula. I reviewed the current inpatient medications. Currently on ceftriaxone 1 g every 24 hours, linezolid 600 mg every 12 hours. Patient also was given 2 dosesof Lokelma for hyperkalemia. Patient is currently on 100 cc/h normal saline. There has been no NSAID use. No IV contrast exposure. Interval history Patient was seen and examined in his room. Patient denies worsening breathing. No nausea no vomiting. No chest pain. Hemodialysis was started January 28 for severe SIHRA, hyperkalemia and hyponatremia along with oliguria. There has been no recovery of kidney function so far. Serum creatinine continues to rise between hemodialysis sessions Antibiotics was switched to ertapenem and Zyvox per ID for lower extremity infected wound. Vascular surgery team is following the patient for need of angioplasty Sunday Exam Physical Exam Vital Signs: Temp Pulse Resp BP Pulse Ox O2 Del Method O2 Flow Rate 97.5 F L 90 16 151/84 H 95 Room Air 2 02/03/24 08:00 02/03/24 08:00 02/03/24 08:00 02/03/24 08:00 02/03/24 08:00 02/03/24 08:59 02/02/24 20:00 FiO2 10 02/01/24 11:52 Narrative: General: No acute distress Head :atraumatic normocephalic Eyes: PERRLA. Neck: no JVD no bruit. Heart: S1-S2. RRR Respiratory: Clear to auscultation. No wheezing. No crackles Abdomen: Soft, positive bowel sounds,no tenderness. Neurology: Awake alert oriented x3. No focal deficits Extremity. No cyanosis. Both feet are wrapped. Patient has +1 edema of lower extremity Skin: No skin rash Objective Intake and Output I&O: Intake & Output 01/31/24 02/01/24 02/02/24 02/03/24 23:59 23:59 23:59 23:59 Intake Total 1250 / 1250 1370 / 1370 1750 / 1750 375 / 375 Output Total 2438 / 2438 280 / 280 2600 / 2600 0 / 0 Balance -1188 / -1188 1090 / 1090 -850 / -850 375 / 375 Weight 208 lb 1.862 oz 202 lb 6.15 oz 210 lb 8.663 oz 206 lb 9.17 oz Meds and Allergies Meds: Active Medications Hydrocodone Bitart/Acetaminophen (Hydrocodone/Acetaminophen 5-325 Mg Tablet) 1 tab PO TID PRN PRN Reason: Pain Last Admin: 02/03/24 10:04 Dose: 1 tab Albuterol (Albuterol Neb 2.5 Mg/3 Ml Vial.Neb) 2.5 mg INHALATION Q4H PRN PRN Reason: breathing Stop: 01/27/25 21:48 Apixaban (Apixaban 2.5 Mg Tablet) 2.5 mg PO BID RACHANA Stop: 01/31/25 20:59 Last Admin: 02/03/24 08:22 Dose: 2.5 mg Aspirin (Aspirin 81 Mg Tablet.Dr) 81 mg PO DAILY RACHANA Stop: 01/31/25 08:59 Last Admin: 02/03/24 08:24 Dose: 81 mg Atorvastatin Calcium (Atorvastatin 80 Mg Tablet) 80 mg PO DAILY RACHANA Stop: 01/28/25 08:59 Last Admin: 02/03/24 08:23 Dose: 80 mg Budesonide/Formoterol Fumarate (Budesonide/Formoterol 160-4.5 Mcg 60 Puff/6 Gm Hfa.Aer.Ad) 2 puff INHALATION BID RACHANA Stop: 01/31/25 08:59 Carvedilol (Carvedilol 12.5 Mg Tablet) 12.5 mg PO BID RACHANA Stop: 01/28/25 08:59 Last Admin: 02/03/24 08:24 Dose: 12.5 mg Cyanocobalamin (Cyanocobalamin 1,000 Mcg Tablet) 1,000 mcg PO DAILY RACHANA Stop: 01/31/25 08:59 Last Admin: 02/03/24 08:23 Dose: 1,000 mcg Gabapentin (Gabapentin 100 Mg Capsule) 200 mg PO TID PRN PRN Reason: nerve pain Stop: 01/30/25 21:59 Last Admin: 02/01/24 15:37 Dose: 200 mg Heparin Sodium (Porcine) (Heparin-Lock 500 Unit/5 Ml Syringe) 500 unit IV-PUSH QSHIFT RACHANA Stop: 01/30/25 21:59 Last Admin: 02/03/24 06:20 Dose: Not Given Heparin Sodium (Porcine) (Heparin 10,000 Unit/10 Ml Vial) 3,800 unit IV PRN PRN PRN Reason: Dialysis Stop: 01/28/25 14:06 Last Admin: 02/02/24 12:08 Dose: 3,800 unit Hydralazine HCl (Hydralazine 50 Mg Tablet) 50 mg PO TID RACHANA Stop: 01/27/25 21:59 Last Admin: 02/03/24 08:23 Dose: 50 mg Sodium Chloride (0.9% Sodium Chloride 1,000 Ml) 1,000 mls @ 0 mls/hr MISCELLANE.Q0M PRN PRN Reason: Dialysis Stop: 01/28/25 14:06 Last Infusion: 02/02/24 12:18 Dose: Infused Sodium Chloride (0.9% Sodium Chloride 1,000 Ml) 1,000 mls @ 0 mls/hr MISCELLANE.Q0M PRN PRN Reason: Dialysis Stop: 01/29/25 08:35 Last Infusion: 01/31/24 16:59 Dose: Infused Linezolid (Zyvox) 600 mg in 300 mls @ 300 mls/hr IV Q12H [facility] Last Admin: 02/03/24 03:30 Dose: 300 mls/hr Ertapenem 0.5 gm/ Sodium (Chloride) 100 mls @ 200 mls/hr IV Q24H [facility] Stop: 02/02/25 13:59 Insulin Aspart (Insulin Aspart 300 Units/3 Ml Insuln.Pen) 0 units SUBCUT TID..[facility]; Protocol Stop: 01/27/25 22:44 Last Admin: 02/03/24 08:21 Dose: 4 units Isosorbide Dinitrate (Isosorbide Dinitrate 20 Mg Tablet) 20 mg PO BID [facility] Stop: 01/28/25 08:59 Last Admin: 02/03/24 08:23 Dose: 20 mg Levothyroxine Sodium (Levothyroxine 50 Mcg Tablet) 50 mcg PO DAILY@0630 [facility] Stop: 01/29/25 06:29 Last Admin: 02/03/24 06:02 Dose: 50 mcg Loperamide HCl (Loperamide 2 Mg Capsule) 2 mg PO Q2H PRN PRN Reason: Diarrhea Stop: 01/29/25 10:31 Last Admin: 02/01/24 13:28 Dose: 2 mg Nitroglycerin (Nitroglycerin 0.4 Mg Tab.Subl) 0.4 mg SUBLINGUAL Q5MIN.X3 PRN PRN Reason: Chest Pain Stop: 01/27/25 21:43 Nystatin (Nystatin 100,000 Unit/Gram Powder 15 Gm Bottle) 1 applic TOPICAL QID [facility] Stop: 01/29/25 08:59 Last Admin: 02/03/24 08:25 Dose: 1 applic Ondansetron HCl (Ondansetron 4 Mg/2 Ml Vial) 4 mg IV-PUSH Q4H PRN PRN Reason: Nausea And Vomiting Stop: 01/31/25 14:34 Sodium Chloride (Sodium Chloride 0.9 % 10 Ml Syringe) 0 ml IV-PUSH PRN PRN PRN Reason: Flush Stop: 01/28/25 14:06 Last Admin: 02/02/24 12:17 Dose: 10 ml Sodium Chloride (Sodium Chloride 0.9 % 10 Ml Syringe) 0 ml IV-PUSH PRN PRN PRN Reason: Flush Stop: 01/29/25 08:35 Last Admin: 02/02/24 12:09 Dose: 10 ml Sodium Chloride (Sodium Chloride 0.9 % 10 Ml Syringe) 0 ml IV-PUSH QSHIFT RACHANA Stop: 01/30/25 21:59 Last Admin: 02/03/24 06:20 Dose: 10 ml Vitamin D (Cholecalciferol 25 Mcg (1,000 Units) Tablet) 50 mcg PO DAILY RACHANA Stop: 01/31/25 08:59 Last Admin: 02/03/24 08:22 Dose: 50 mcg Zinc Oxide (Zinc Oxide 20% Ointment 56 Gm Tube) 1 applic TOPICAL PRN PRN PRN Reason: Skin Irritation Stop: 01/28/25 00:30 Last Admin: 02/01/24 09:09 Dose: 1 applic Allergies LUPIS Inhibitors Allergy (Unknown, Verified 01/08/24 05:36) Cough Results - Nephrology Labs 02/03/24 05:55 02/03/24 05:55 Labs: 02/03/24 05:55 BUN 36 H Creatinine 2.87 H D Phosphorus 5.0 H Iron Saturation 87.6 H Ferritin 208.4 Albumin 2.4 L Radiology Impressions Impressions - last 24 hours: Any impression(s) listed above is documentation that was entered by the reading physician into a diagnostic report(s) for Adwoa Porter. I have reviewed the report(s) and am incorporating any findings in the treatment plan of this patient where applicable. A&P - Nephrology Assessment/Plan (1) SHIRA (acute kidney injury): Plan: Acute kidney injury is likely amikacin induced ATN. Baseline creatinine around 1.4 mg deciliter. Patient likely has CKD from cardiorenal syndrome. Serum creatinine up to 5.3 mg/dL. Patient has been anuric since admission along with hyperkalemia, metabolic acidosis and hyponatremia (2) Hyponatremia: Plan: This is likely related to SHIRA and fluid overload. Serum sodium level today 123 mmol/L. Patient has been on normal saline 100 cc/h since admission (3) Hyperkalemia: Plan: This is likely related to amikacin effect and SHIRA along with metabolic acidosis. Patient was given 2 doses of Lokelma yesterday but potassium level is higher today at 6.1 (4) Metabolic acidosis: Plan: This is likely related to SHIRA. Serum bicarb level today 15. Patient has been anuric (5) Cellulitis of lower leg: Plan: Patient was admitted to [facility] recently with septic shock from cellulitis. Patient was discharged to SNF with amikacin, ceftriaxone and Zyvox. Currently amikacin and hold due to SHIRA. ID is following Plan * No recovery of kidney function. Last hemodialysis session was yesterday. No need for hemodialysis session today * Will evaluate the need of hemodialysis session tomorrow * Will continue to monitor for kidney function recovery. Please do daily BMP along with accurate urine output documentation * Right IJ tunnel catheter was placed January 30. I appreciate vascular surgery help * ID is following for leg wound infection.. Inpatient pharmacy to dose antibiotics for SHIRA and thrice weekly TTS hemodialysis schedule * Check CBC and renal function panel in a.m. prior to hemodialysis to adjust order as needed Renal team will continue to follow. Call if any question or concern. Documented By: Lia Law MD 02/03/24 1101 Signed By: <Electronically signed by Lia Law MD> 02/03/24 1103 [facility] Work Phone: 1(178) 855-530103-16-2024 Progress note Author Farhan Hudson [facility] February 02, 2024 3:04pm Note Date/Time February 02, 2024 3:0 4pm [facility] [address] [place] [address] Hospitalist Progress Note Signed Patient: Adwoa Porter MR#: [id number] : 1955 Acct:[id number] Age/Sex: 68 / M Adm Date: 4 Loc: Room: [address] [place] [address] Type: ADM IN Attending Dr: Farhan Hudson DO Copies to: ~ Date of Service: 02/02/2024 Subjective Subjective Narrative: Patient was seen and examined at bedside this morning. He has no major complaints. Physical Examination: GENERAL APPEARANCE: Alert, up in bed AAOx3 HEENT: NCAT, mildly dry mucous membrane CARDIAC: Normal S1 and S2. Somewhat distant heart sounds, possible systolic murmur at the left heart border noted LUNGS: Clear to auscultation bilaterally. no wheeze/rhonchi/rales ABDOMEN: Protuberant, somewhat obese but nontender abdomen EXTREMITIES: Some chronic venous stasis changes bilaterally, his left lower extremity has dressing in place to the left foot and significant pitting edema up through the knee. Wound VAC present. His left upper extremity tenderness noted on his right but not tender and not pitting in nature NEUROLOGICAL: No focal deficits PSYCHIATRIC: Appropriate mood and affect Assessment and plan: 1. Acute kidney injury on chronic kidney disease stage III 2. Chronic systolic congestive heart failure with reduced ejection fraction - status post pacer ICD 3. Paroxysmal atrial fibrillation 4. COPD 5. Insulin-dependent diabetes mellitus type 2 6. Hypothyroidism 7. Hyperlipidemia 8 Essential hypertension 9. Anemia of chronic kidney disease 10. Paraproteinemia 11. Hyponatremia 12. Left upper extremity lymphedema Amikacin toxicity resulting in acute on chronic renal failure. Appreciate nephrology recommendations. Dialysis as needed. Difficult to prognosis long-term but for now assured the patient that he will likely need dialysis for the foreseeable future with guarded prognosis of any significant GFR recovery if anyat all. Antibiotics transitioned to IV ertapenem, Rocephin discontinued. Linezolid 600 mg twice daily IV. No clinical progression of infection off of any amikacin anddoubt any true clinical utility of this antibiotic. Will monitor for any fevers. PVR showed moderate vascular disease of bilateral lower extremities. Surgical planning is currently pending. His INR today is down to 1.9. Coagulopathy and discharged on lower dose Coumadin on recent hospitalization. Certainly suspect antibiotic interactions and with complex ongoing polypharmacy this will be a continued risk. His [id number] score is at minimum 5. Eliquis 2.5 mg twice daily was initiated and is currently yesterday. Discussed with pharmacy and he would not have a contraindication to a higher dose 5 mg twice daily. With possible surgical intervention, and recent Coumadin prior to admission still in the system will leave this lower dose for the time being. He can be discharged on this 5 mg twice daily dosing more than likely. Patient has left upper extremity nonpitting edema that is not tender nor warm. He reports no surgery or chronic swelling on that side. He is receiving anticoagulation as above as well as antibiotic coverage. If this becomes more painful or an ultrasound can be obtained. Suspect a component of chronic lymphedema and inflammation from recent IV insertions. Compression stockings ifwarranted could be applied. Is multifactorial expected hyponatremia is stable and improved from levels as low as 123. Will trend his protein levels and consider further workup going forward. Exam Physical Exam Vital Signs: Temp Pulse Resp BP Pulse Ox O2 Del Method O2 Flow Rate 97.9 F 88 18 120/80 100 Nasal Cannula 2 02/02/24 13:45 02/02/24 13:45 02/02/24 13:45 02/02/24 13:45 02/02/24 13:45 02/02/24 13:45 02/02/24 13:45 FiO2 10 02/01/24 11:52 Objective Lab Results 02/02/24 05:45 02/02/24 05:45 Microbiology Results Microbiology 01/29/24 20:30 Urine - Voided Urine Culture - Final Klebsiella variicola Meds Allergies and Active Meds Allergies LUPIS Inhibitors Allergy (Unknown, Verified 01/08/24 05:36) Cough Active Meds: Active Medications Generic Name Dose Route Start Last Admin Trade Name Freq PRN Reason Stop Dose Admin Hydrocodone Bitart/Acetaminophen 1 tab 01/28/24 21:44 02/02/24 12:43 Hydrocodone/Acetaminophen 5-325 Mg Tablet PO 1 tab TID PRN Administration Pain Albuterol 2.5 mg 01/28/24 21:49 Albuterol Neb 2.5 Mg/3 Ml Vial.Neb INHALATION 01/27/25 21:48 Q4H PRN breathing Apixaban 2.5 mg 02/01/24 21:00 02/02/24 09:58 Apixaban 2.5 Mg Tablet PO 01/31/25 20:59 Not Given BID RACHANA Aspirin 81 mg 02/01/24 09:00 02/01/24 08:44 Aspirin 81 Mg Tablet. PO 01/31/25 08:59 81 mg DAILY RACHANA Administration Atorvastatin Calcium 80 mg 01/29/24 09:00 02/01/24 08:45 Atorvastatin 80 Mg Tablet PO 01/28/25 08:59 80 mg DAILY RACHANA Administration Budesonide/Formoterol Fumarate 2 puff 02/01/24 09:00 Budesonide/Formoterol 160-4.5 Mcg 60 Puff/6 Gm Hfa.Aer.Ad INHALATION 01/31/25 08:59 BID RACHANA Carvedilol 12.5 mg 01/29/24 09:00 02/02/24 09:59 Carvedilol 12.5 Mg Tablet PO 01/28/25 08:59 Not Given BID RACHANA Cyanocobalamin 1,000 mcg 02/01/24 09:00 02/01/24 08:44 Cyanocobalamin 1,000 Mcg Tablet PO 01/31/25 08:59 1,000 mcg DAILY RACHANA Administration Gabapentin 200 mg 01/31/24 21:14 02/01/24 15:37 Gabapentin 100 Mg Capsule PO 01/30/25 21:59 200 mg TID PRN Administration nerve pain Heparin Sodium (Porcine) 500 unit 01/31/24 22:00 02/02/24 07:02 Heparin-Lock 500 Unit/5 Ml Syringe IV-PUSH 01/30/25 21:59 Not Given QSHIFT [facility] Heparin Sodium (Porcine) 3,800 unit 01/31/24 16:13 02/02/24 12:08 Heparin 10,000 Unit/10 Ml Vial IV 01/28/25 14:06 3,800 unit PRN PRN Administration Dialysis Hydralazine HCl 50 mg 01/28/24 22:00 02/02/24 09:59 Hydralazine 50 Mg Tablet PO 01/27/25 21:59 Not Given TID RACHANA Linezolid 600 mg in 300 mls @ 300 mls/hr 01/28/24 22:30 02/02/24 14:30 Zyvox IV 300 mls/hr Q12H RACHANA Administration Sodium Chloride 1,000 mls @ 0 mls/hr 01/29/24 14:07 02/02/24 12:18 0.9% Sodium Chloride 1,000 Ml MISCELLANE 01/28/25 14:06 Infused .Q0M PRN Infusion Dialysis As Directed Sodium Chloride 1,000 mls @ 0 mls/hr 01/30/24 08:36 01/31/24 16:59 0.9% Sodium Chloride 1,000 Ml MISCELLANE 01/29/25 08:35 Infused .Q0M PRN Infusion Dialysis As Directed Ertapenem 0.5 gm/ Sodium 100 mls @ 200 mls/hr 01/31/24 10:00 02/01/24 10:35 Chloride IV 01/30/25 09:59 200 mls/hr Q24H RACHANA Administration Insulin Aspart 0 units 01/28/24 22:45 02/02/24 09:00 Insulin Aspart 300 Units/3 Ml Insuln.Pen SUBCUT 01/27/25 22:44 Not Given TID.WM.HS [facility] Protocol Isosorbide Dinitrate 20 mg 01/29/24 09:00 02/02/24 09:59 Isosorbide Dinitrate 20 Mg Tablet PO 01/28/25 08:59 Not Given BID RACHANA Levothyroxine Sodium 50 mcg 01/30/24 06:30 02/02/24 05:42 Levothyroxine 50 Mcg Tablet PO 01/29/25 06:29 50 mcg DAILY@0630 [facility] Administration Loperamide HCl 2 mg 01/30/24 10:32 02/01/24 13:28 Loperamide 2 Mg Capsule PO 01/29/25 10:31 2 mg Q2H PRN Administration Diarrhea Nitroglycerin 0.4 mg 01/28/24 21:44 Nitroglycerin 0.4 Mg Tab.Subl SUBLINGUAL 01/27/25 21:43 Q5MIN.X3 PRN Chest Pain Nystatin 1 applic 01/30/24 09:00 02/02/24 09:59 Nystatin 100,000 Unit/Gram Powder 15 Gm Bottle TOPICAL 01/29/25 08:59 1 applic QID [facility] Administration Ondansetron HCl 4 mg 02/01/24 14:35 Ondansetron 4 Mg/2 Ml Vial IV-PUSH 01/31/25 14:34 Q4H PRN Nausea And Vomiting Sodium Chloride 0 ml 01/29/24 14:07 02/02/24 12:17 Sodium Chloride 0.9 % 10 Ml Syringe IV-PUSH 01/28/25 14:06 10 ml PRN PRN Administration Flush Sodium Chloride 0 ml 01/30/24 08:36 02/02/24 12:09 Sodium Chloride 0.9 % 10 Ml Syringe IV-PUSH 01/29/25 08:35 10 ml PRN PRN Administration Flush Sodium Chloride 0 ml 01/31/24 22:00 02/02/24 12:08 Sodium Chloride 0.9 % 10 Ml Syringe IV-PUSH 01/30/25 21:59 10 ml QSHIFT RACHANA Administration Vitamin D 50 mcg 02/01/24 09:00 02/01/24 08:43 Cholecalciferol 25 Mcg (1,000 Units) Tablet PO 01/31/25 08:59 50 mcg DAILY RACHANA Administration Zinc Oxide 1 applic 01/29/24 00:31 02/01/24 09:09 Zinc Oxide 20% Ointment 56 Gm Tube TOPICAL 01/28/25 00:30 1 applic PRN PRN Administration Skin Irritation A&P - Hospitalist Assessment/Plan (1) Acute kidney injury superimposed on CKD: Plan as above Documented By: Farhan Hudson DO 02/02/24 14 57 Signed By: <Electronically signed by Farhan Hudson DO> 02/02/24 0568 [facility] Work Phone: 1(761) 883-897003-16-2024 Progress note Author Valentin Valle [facility] February 02, 2024 12:48pm Note Date/Time February 02, 2024 12: 48pm [facility] [address] [place] [address] Podiatry Progress Note Signed Patient: Adwoa Porter MR#: [id number] : 1955 Acct:[id number] Age/Sex: 68 / M Adm Date: 4 Loc: Room: [address] [place] [address] Type: ADM IN Attending Dr: Farhan Hudson DO Copies to: ~ Subjective Subjective Date of Service: Date of Service: 02/02/2024 Time of Service: 12:45 Narrative: Attempted to see patient in room however patient was at dialysis. 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 The culture that was taken at [facility] revealed normal skin cedric. Patient's antibiotic therapy is currently being managed by Dr. Schofield and he is currently taking linezolid and ceftriaxone. Patient is scheduled to have a diagnostic/therapeutic angioplasty on Sunday. I also explained to the patient that if the patient needs further debridement or octavia proximal foot amputation I do not feel comfortable doing that. If the patient ends up being revascularized he would need to follow-up with Dr. Arroyo and Dr. Reyes for further wound care or surgical intervention. I explained to the patient that when he gets discharged they will need to make an appointment with Dr. Arroyo. If patient requires a more proximal foot amputation he may need to be seen and treated by Dr. Arroyo and Dr. Harley zapata to do this procedure. From podiatry standpoint okay to discharge back [facility] with current wound care orders. Will continue with currentwound care consisting of applying Adaptic to the wound bed followed by Thera honey and a gauze dressing daily. Patient's foot at this time is stable. Code(s): T81.89XA - Other complications of procedures, not elsewhere classified, initial encounter (3) Infected wound: Plan: Patient is being seen by infectious disease for antibiotic therapy. Code(s): T14.8XXA - Other injury of unspecified body region, initial encounter; L08.9 - Local infection of the skin and subcutaneous tissue, unspecified Plan Plan is previously mentioned under diabetic type II foot with gangrene. Documented By: Valentin Valle DPM 02/02/24 1245 Signed By: <Electronically signed by NELLY Valle> 02/02/24 1248 [facility] Work Phone: 1(472) 575-498503-16-2024 Progress note Author Lia Law [facility] February 02, 2024 12:47pm Note Date/Time February 02, 2024 12: 47pm [facility] [address] [place] [address] Nephrology Progress Note Signed Patient: Adwoa Porter MR#: [id number] : 1955 Acct:[id number] Age/Sex: 68 / M Adm Date: 4 Loc: 4 Room: 9B3876-4 Type: ADM IN Attending Dr: Farhan Hudson DO Copies to: ~ Date of Service: 02/02/2024 Subjective Subjective Narrative: This is 68-year-old male patient with past medical history of systolic heart failure ejection fraction 10 to 15%, CKD stage III baseline creatinine around 1.5 mg deciliter last year, type 2 diabetes, hyperlipidemia, AICD in place, hypertension, COPD. Patient was admitted recently to [facility] for septic shock from cellulitis. Patient was stabilized and discharged to [facility] withamikacin and 2 other antibiotics. Lab at [facility] revealed SHIRA, hyperkalemia and hyponatremia and patient was sent to [facility]. Lab work this morning revealed potassium 5.3 mg deciliter, BUN 105, serum bicarb 15,potassium 6.1, sodium 123, hemoglobin 9.9 g deciliter, white cell count 18.8. Chest x-ray at admission revealed left basilar infiltrate with possible effusion. Lab also revealed high BNP at 1600. Renal team is consulted for acute kidney injury. Patient has been anuric since admission. Currently on 2 Lnasal cannula. I reviewed the current inpatient medications. Currently on ceftriaxone 1 g every 24 hours, linezolid 600 mg every 12 hours. Patient also was given 2 dosesof Lokelma for hyperkalemia. Patient is currently on 100 cc/h normal saline. There has been no NSAID use. No IV contrast exposure. Interval history Patient was seen and examined on hemodialysis. Patient sleeping during my encounter. There has been no reported worsening breathing. No nausea no vomiting. No chest pain. Hemodialysis was started January 28 for severe SHIRA, hyperkalemia and hyponatremia along with oliguria. There has been no recovery of kidney function so far. Serum creatinine continues to rise between hemodialysis session Antibiotics was switched to ertapenem and Zyvox per ID for lower extremity infected wound. Vascular surgery team is following the patient for need of angioplasty Sunday Exam Physical Exam Vital Signs: Temp Pulse Resp BP Pulse Ox O2 Del Method O2 Flow Rate 98 F 88 18 119/69 90 L Room Air 2 02/02/24 09:50 02/02/24 12:01 02/02/24 09:50 02/02/24 12:01 02/02/24 09:50 02/02/24 09:50 02/01/24 11:52 FiO2 10 02/01/24 11:52 Narrative: General: No acute distress Head :atraumatic normocephalic Eyes: PERRLA. Neck: no JVD no bruit. Heart: S1-S2. RRR Respiratory: Clear to auscultation. No wheezing. No crackles Abdomen: Soft, positive bowel sounds,no tenderness. Neurology: Awake alert oriented x3. No focal deficits Extremity. No cyanosis. Both feet are wrapped. Patient has +1 edema of lower extremity Skin: No skin rash Objective Intake and Output I&O: Intake & Output 01/30/24 01/31/24 02/01/24 02/02/24 23:59 23:59 23:59 23:59 Intake Total 1950 / 1950 1250 / 1250 1270 / 1270 650 / 650 Output Total 2506 / 2506 2438 / 2438 280 / 280 Balance -556 / -556 -1188 / -1188 990 / 990 650 / 650 Weight 208 lb 12.444 oz 208 lb 1.862 oz 202 lb 6.15 oz 210 lb 8.663 oz Meds and Allergies Meds: Active Medications Hydrocodone Bitart/Acetaminophen (Hydrocodone/Acetaminophen 5-325 Mg Tablet) 1 tab PO TID PRN PRN Reason: Pain Last Admin: 02/02/24 12:43 Dose: 1 tab Albuterol (Albuterol Neb 2.5 Mg/3 Ml Vial.Neb) 2.5 mg INHALATION Q4H PRN PRN Reason: breathing Stop: 01/27/25 21:48 Apixaban (Apixaban 2.5 Mg Tablet) 2.5 mg PO BID RACHANA Stop: 01/31/25 20:59 Last Admin: 02/02/24 09:58 Dose: Not Given Aspirin (Aspirin 81 Mg Tablet.) 81 mg PO DAILY RACHANA Stop: 01/31/25 08:59 Last Admin: 02/01/24 08:44 Dose: 81 mg Atorvastatin Calcium (Atorvastatin 80 Mg Tablet) 80 mg PO DAILY RACHANA Stop: 01/28/25 08:59 Last Admin: 02/01/24 08:45 Dose: 80 mg Budesonide/Formoterol Fumarate (Budesonide/Formoterol 160-4.5 Mcg 60 Puff/6 Gm Hfa.Aer.Ad) 2 puff INHALATION BID [facility] Stop: 01/31/25 08:59 Carvedilol (Carvedilol 12.5 Mg Tablet) 12.5 mg PO BID RACHANA Stop: 01/28/25 08:59 Last Admin: 02/02/24 09:59 Dose: Not Given Cyanocobalamin (Cyanocobalamin 1,000 Mcg Tablet) 1,000 mcg PO DAILY RACHANA Stop: 01/31/25 08:59 Last Admin: 02/01/24 08:44 Dose: 1,000 mcg Gabapentin (Gabapentin 100 Mg Capsule) 200 mg PO TID PRN PRN Reason: nerve pain Stop: 01/30/25 21:59 Last Admin: 02/01/24 15:37 Dose: 200 mg Heparin Sodium (Porcine) (Heparin-Lock 500 Unit/5 Ml Syringe) 500 unit IV-PUSH QSHIFT [facility] Stop: 01/30/25 21:59 Last Admin: 02/02/24 07:02 Dose: Not Given Heparin Sodium (Porcine) (Heparin 10,000 Unit/10 Ml Vial) 3,800 unit IV PRN PRN PRN Reason: Dialysis Stop: 01/28/25 14:06 Last Admin: 02/02/24 12:08 Dose: 3,800 unit Hydralazine HCl (Hydralazine 50 Mg Tablet) 50 mg PO TID [facility] Stop: 01/27/25 21:59 Last Admin: 02/02/24 09:59 Dose: Not Given Linezolid (Zyvox) 600 mg in 300 mls @ 300 mls/hr IV Q12H [facility] Last Admin: 02/01/24 23:20 Dose: 300 mls/hr Sodium Chloride (0.9% Sodium Chloride 1,000 Ml) 1,000 mls @ 0 mls/hr MISCELLANE.Q0M PRN PRN Reason: Dialysis Stop: 01/28/25 14:06 Last Infusion: 02/02/24 12:18 Dose: Infused Sodium Chloride (0.9% Sodium Chloride 1,000 Ml) 1,000 mls @ 0 mls/hr MISCELLANE.Q0M PRN PRN Reason: Dialysis Stop: 01/29/25 08:35 Last Infusion: 01/31/24 16:59 Dose: Infused Ertapenem 0.5 gm/ Sodium (Chloride) 100 mls @ 200 mls/hr IV Q24H [facility] Stop: 01/30/25 09:59 Last Admin: 02/01/24 10:35 Dose: 200 mls/hr Insulin Aspart (Insulin Aspart 300 Units/3 Ml Insuln.Pen) 0 units SUBCUT TID.WM.HS [facility]; Protocol Stop: 01/27/25 22:44 Last Admin: 02/01/24 21:02 Dose: 4 units Isosorbide Dinitrate (Isosorbide Dinitrate 20 Mg Tablet) 20 mg PO BID [facility] Stop: 01/28/25 08:59 Last Admin: 02/02/24 09:59 Dose: Not Given Levothyroxine Sodium (Levothyroxine 50 Mcg Tablet) 50 mcg PO DAILY@0630 [facility] Stop: 01/29/25 06:29 Last Admin: 02/02/24 05:42 Dose: 50 mcg Loperamide HCl (Loperamide 2 Mg Capsule) 2 mg PO Q2H PRN PRN Reason: Diarrhea Stop: 01/29/25 10:31 Last Admin: 02/01/24 13:28 Dose: 2 mg Nitroglycerin (Nitroglycerin 0.4 Mg Tab.Subl) 0.4 mg SUBLINGUAL Q5MIN.X3 PRN PRN Reason: Chest Pain Stop: 01/27/25 21:43 Nystatin (Nystatin 100,000 Unit/Gram Powder 15 Gm Bottle) 1 applic TOPICAL QID [facility] Stop: 01/29/25 08:59 Last Admin: 02/02/24 09:59 Dose: 1 applic Ondansetron HCl (Ondansetron 4 Mg/2 Ml Vial) 4 mg IV-PUSH Q4H PRN PRN Reason: Nausea And Vomiting Stop: 01/31/25 14:34 Sodium Chloride (Sodium Chloride 0.9 % 10 Ml Syringe) 0 ml IV-PUSH PRN PRN PRN Reason: Flush Stop: 01/28/25 14:06 Last Admin: 02/02/24 12:17 Dose: 10 ml Sodium Chloride (Sodium Chloride 0.9 % 10 Ml Syringe) 0 ml IV-PUSH PRN PRN PRN Reason: Flush Stop: 01/29/25 08:35 Last Admin: 02/02/24 12:09 Dose: 10 ml Sodium Chloride (Sodium Chloride 0.9 % 10 Ml Syringe) 0 ml IV-PUSH QSHIFT RACHANA Stop: 01/30/25 21:59 Last Admin: 02/02/24 12:08 Dose: 10 ml Vitamin D (Cholecalciferol 25 Mcg (1,000 Units) Tablet) 50 mcg PO DAILY RACHANA Stop: 01/31/25 08:59 Last Admin: 02/01/24 08:43 Dose: 50 mcg Zinc Oxide (Zinc Oxide 20% Ointment 56 Gm Tube) 1 applic TOPICAL PRN PRN PRN Reason: Skin Irritation Stop: 01/28/25 00:30 Last Admin: 02/01/24 09:09 Dose: 1 applic Allergies LUPIS Inhibitors Allergy (Unknown, Verified 01/08/24 05:36) Cough Results - Nephrology Labs 02/02/24 05:45 02/02/24 05:45 Labs: 02/02/24 05:45 BUN 51 H Creatinine 3.82 H D Radiology Impressions Impressions - last 24 hours: Any impression(s) listed above is documentation that was entered by the reading physician into a diagnostic report(s) for Adwoa Porter. I have reviewed the report(s) and am incorporating any findings in the treatment plan of this patient where applicable. A&P - Nephrology Assessment/Plan (1) SHIRA (acute kidney injury): Plan: Acute kidney injury is likely amikacin induced ATN. Baseline creatinine around 1.4 mg deciliter. Patient likely has CKD from cardiorenal syndrome. Serum creatinine up to 5.3 mg/dL. Patient has been anuric since admission along with hyperkalemia, metabolic acidosis and hyponatremia (2) Hyponatremia: Plan: This is likely related to SHIRA and fluid overload. Serum sodium level today 123 mmol/L. Patient has been on normal saline 100 cc/h since admission (3) Hyperkalemia: Plan: This is likely related to amikacin effect and SHIRA along with metabolic acidosis. Patient was given 2 doses of Lokelma yesterday but potassium level is higher today at 6.1 (4) Metabolic acidosis: Plan: This is likely related to SHIRA. Serum bicarb level today 15. Patient has been anuric (5) Cellulitis of lower leg: Plan: Patient was admitted to [facility] recently with septic shock from cellulitis. Patient was discharged to SNF with amikacin, ceftriaxone and Zyvox. Currently amikacin and hold due to SHIRA. ID is following Plan * No recovery of kidney function. Hemodialysis in today with a blood flow rate 350, dialysate flow rate 500, ultrafiltration 2 L * Will continue to monitor for kidney function recovery. Please do daily BMP along with accurate urine output documentation * Right IJ tunnel catheter was placed January 30. I appreciate vascular surgery help * ID is following for leg wound infection.. Inpatient pharmacy to dose antibiotics for SHIRA and thrice weekly TTS hemodialysis schedule * Check CBC and renal function panel in a.m. prior to hemodialysis to adjust order as needed Renal team will continue to follow. Call if any question or concern. Documented By: Lia Law MD 02/02/24 1245 Signed By: <Electronically signed by Lia Law MD> 02/02/24 1241 [facility] Work Phone: 1(114) 118-130703-15-2024 Progress note Author Valentin Valle [facility] February 01, 2024 2:37pm Note Date/Time February 01, 2024 2:3 7pm [facility] [address] [place] [address] Podiatry Progress Note Signed Patient: Adwoa Porter MR#: [id number] : 1955 Acct:[id number] Age/Sex: 68 / M Adm Date: 4 Loc: Room: [address] [place] [address] Type: ADM IN Attending Dr: Farhan Hudson DO Copies to: ~ Subjective Subjective Date of Service: Date of Service: 02/01/2024 Time of Service: 14:32 Narrative: Mr. Porter is a 68 year old male who is seen resting comfortably in bed. Patient denies any history of nausea, vomiting, fever or chills. Patient does report his left leg is sore. Exam Physical Exam Vital Signs: Temp Pulse Resp BP Pulse Ox O2 Del Method O2 Flow Rate 98.4 F 85 14 110/66 97 BiPAP 2 02/01/24 11:52 02/01/24 11:52 02/01/24 11:52 02/01/24 11:52 02/01/24 11:52 02/01/24 11:52 02/01/24 11:52 FiO2 10 02/01/24 11:52 Extrem Other: Dorsalis pedis and posterior tibial pulse nonpalpable left foot. Skin does appear thin shiny and atrophic left foot. Absent hair growth noted left foot. Dermatologic: The incision and drainage surgical site measures 6 cm in length by8 cm in width by 1 cm in depth with 70% of the wound bed appearing eschar and necrotic with remaining 30% remaining pink and granular looking. There is no evidence of erythema, edema, or odor noted at this time. 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 Patient's right CHARO was 1.4 and his left was 1.8. Code(s): E11.52 - Type 2 diabetes mellitus with diabetic peripheral angiopathy with gangrene (2) Surgical wound, non healing: Plan: The culture that was taken at [facility] revealed normal skin cedric. Patient's white blood cell count continues to trend downward today at 11.4. patient's creatinine still elevated however continues to improve since admission with today resulting in 2.98. Patient's antibiotic therapy is currently being managed by Dr. Schofield and he is currently taking linezolid and ceftriaxone. Patient is scheduled to have a diagnostic/therapeutic angioplasty on Sunday. I also explained to the patient that if the patient needs further debridement or a more proximal foot amputation I do not feel comfortable doing that. If the patient ends up being revascularized he would need to follow-up with Dr. rAroyo and Dr. Reyes for further wound care or surgical intervention. I explained to the patient that when he gets discharged they willneed to make an appointment with Dr. Arroyo. If patient requires a more proximal foot amputation he may need to be seen and treated by Dr. Arroyo and Dr. Souza in order to do this procedure. From podiatry standpoint okay to discharge back to [facility] with current wound care orders. Will continue with current wound care consisting of applying Adaptic to the wound bedfollowed by Thera honey and a gauze dressing daily. Patient's foot at this timeis stable. Code(s): T81.89XA - Other complications of procedures, not elsewhere classified, initial encounter (3) Infected wound: Plan: Patient is being seen by infectious disease for antibiotic therapy. Code(s): T14.8XXA - Other injury of unspecified body region, initial encounter; L08.9 - Local infection of the skin and subcutaneous tissue, unspecified Plan Plan is previously mentioned under diabetic type II foot with gangrene. Documented By: Valentin Valle DPM 02/01/24 143 Signed By: <Electronically signed by NELLY Valle> 02/01/24 0772 [facility] Work Phone: 1(637) 532-177503-15-2024 Progress note Author Farhan Hudson [facility] February 01, 2024 1:53pm Note Date/Time February 01, 2024 1:5 3pm [facility] [address] [place] [address] Hospitalist Progress Note Signed Patient: Adwoa Porter MR#: [id number] : 1955 Acct:[id number] Age/Sex: 68 / M Adm Date: 4 Loc: Room: [address] [place] [address] Type: ADM IN Attending Dr: Farhan Hudson DO Copies to: ~ Date of Service: 02/01/2024 Subjective Subjective Narrative: Patient was seen and examined at bedside this morning. He is sitting up in bed in no distress. No new complaints. Physical Examination: GENERAL APPEARANCE: Alert, up in bed AAOx3 HEENT: NCAT, mildly dry mucous membrane CARDIAC: Normal S1 and S2. Somewhat distant heart sounds, possible systolic murmur at the left heart border noted LUNGS: Clear to auscultation bilaterally. no wheeze/rhonchi/rales ABDOMEN: Protuberant, somewhat obese but nontender abdomen EXTREMITIES: Some chronic venous stasis changes bilaterally, his left lower extremity has dressing in place to the left foot and significant pitting edema up through the knee. Wound VAC present NEUROLOGICAL: No focal deficits PSYCHIATRIC: Appropriate mood and affect Assessment and plan: 1. Acute kidney injury on chronic kidney disease stage III 2. Chronic systolic congestive heart failure with reduced ejection fraction - status post pacer ICD 3. Paroxysmal atrial fibrillation 4. COPD 5. Insulin-dependent diabetes mellitus type 2 6. Hypothyroidism 7. Hyperlipidemia 8 Essential hypertension 9. Anemia of chronic kidney disease 10. Paraproteinemia Amikacin toxicity resulting in acute on chronic renal failure. Appreciate nephrology recommendations. Dialysis as needed. Difficult to prognosis long-term but for now assured the patient that he will likely need dialysis for the foreseeable future with guarded prognosis of any significant GFR recovery if anyat all. Antibiotics transitioned to IV ertapenem, Rocephin discontinued. Linezolid 600 mg twice daily IV. No clinical progression of infection off of any amikacin anddoubt any true clinical utility of this antibiotic. Will monitor for any fevers. PVR showed moderate vascular disease of bilateral lower extremities. Surgical planning is currently pending. His INR today is down to 1.9. Coagulopathy and discharged on lower dose Coumadin on recent hospitalization. Certainly suspect antibiotic interactions and with complex ongoing polypharmacy this will be a continued risk. His [id number] score is at minimum 5 and undoubtedly even if in a controlled regular sinus rhythm presently needs chronic anticoagulation for his A-fib. Hissurgical plan is for the left lower extremity is yet to be determined and reportedly further vascular studies to be done early next week. At best this puts him at mid week next week for any intervention. Subsequently will initiateanticoagulation with 2.5 mg Eliquis twice daily with intent to prescribe this chronically as this is a much safer and effective medication considering his recent coagulopathy. Multifactorial anemia is stable. Monitor for bleeding. The patient's blood sugars appear to be fairly well-controlled at the moment on a #4 sliding scale. Continue to monitor. Paraproteinemia is noted and of unclear significance. At some juncture would be reasonable to repeat total protein and albumin levels and see if this Is increasing to suggest need for further investigation. Exam Physical Exam Vital Signs: Temp Pulse Resp BP Pulse Ox O2 Del Method O2 Flow Rate 98.4 F 85 14 110/66 97 BiPAP 2 02/01/24 11:52 02/01/24 11:52 02/01/24 11:52 02/01/24 11:52 02/01/24 11:52 02/01/24 11:52 02/01/24 11:52 FiO2 10 02/01/24 11:52 Objective Lab Results 02/01/24 06:00 02/01/24 06:00 Microbiology Results Microbiology 01/29/24 20:30 Urine - Voided Urine Culture - Preliminary Klebsiella variicola 01/29/24 09:50 Foot,Left - Drainage Superficial Wound Culture - Final Light Normal Skin Cedric 2 Days Meds Allergies and Active Meds Allergies LUPIS Inhibitors Allergy (Unknown, Verified 01/08/24 05:36) Cough Active Meds: Active Medications Generic Name Dose Route Start Last Admin Trade Name Freq PRN Reason Stop Dose Admin Hydrocodone Bitart/Acetaminophen 1 tab 01/28/24 21:44 02/01/24 13:27 Hydrocodone/Acetaminophen 5-325 Mg Tablet PO 1 tab TID PRN Administration Pain Albuterol 2.5 mg 01/28/24 21:49 Albuterol Neb 2.5 Mg/3 Ml Vial.Neb INHALATION 01/27/25 21:48 Q4H PRN breathing Apixaban 2.5 mg 02/01/24 21:00 Apixaban 2.5 Mg Tablet PO 01/31/25 20:59 BID RACHANA Aspirin 81 mg 02/01/24 09:00 02/01/24 08:44 Aspirin 81 Mg Tablet.Dr PO 01/31/25 08:59 81 mg DAILY RACHANA Administration Atorvastatin Calcium 80 mg 01/29/24 09:00 02/01/24 08:45 Atorvastatin 80 Mg Tablet PO 01/28/25 08:59 80 mg DAILY RACHANA Administration Budesonide/Formoterol Fumarate 2 puff 02/01/24 09:00 Budesonide/Formoterol 160-4.5 Mcg 60 Puff/6 Gm Hfa.Aer.Ad INHALATION 01/31/25 08:59 BID RACHANA Carvedilol 12.5 mg 01/29/24 09:00 02/01/24 08:44 Carvedilol 12.5 Mg Tablet PO 01/28/25 08:59 12.5 mg BID RACHANA Administration Cyanocobalamin 1,000 mcg 02/01/24 09:00 02/01/24 08:44 Cyanocobalamin 1,000 Mcg Tablet PO 01/31/25 08:59 1,000 mcg DAILY RACHANA Administration Gabapentin 200 mg 01/31/24 21:14 02/01/24 11:14 Gabapentin 100 Mg Capsule PO 01/30/25 21:59 200 mg TID PRN Administration nerve pain Heparin Sodium (Porcine) 500 unit 01/31/24 22:00 02/01/24 05:59 Heparin-Lock 500 Unit/5 Ml Syringe IV-PUSH 01/30/25 21:59 Not Given QSHIFT RACHANA Heparin Sodium (Porcine) 3,800 unit 01/31/24 16:13 01/31/24 16:49 Heparin 10,000 Unit/10 Ml Vial IV 01/28/25 14:06 3,800 unit PRN PRN Administration Dialysis Hydralazine HCl 50 mg 01/28/24 22:00 02/01/24 13:28 Hydralazine 50 Mg Tablet PO 01/27/25 21:59 50 mg TID RACHANA Administration Linezolid 600 mg in 300 mls @ 300 mls/hr 01/28/24 22:30 02/01/24 11:10 Zyvox IV 300 mls/hr Q12H RACHANA Administration Sodium Chloride 1,000 mls @ 0 mls/hr 01/29/24 14:07 01/30/24 14:26 0.9% Sodium Chloride 1,000 Ml MISCELLANE 01/28/25 14:06 Infused .Q0M PRN Infusion Dialysis As Directed Sodium Chloride 1,000 mls @ 0 mls/hr 01/30/24 08:36 01/31/24 16:59 0.9% Sodium Chloride 1,000 Ml MISCELLANE 01/29/25 08:35 Infused .Q0M PRN Infusion Dialysis As Directed Ertapenem 0.5 gm/ Sodium 100 mls @ 200 mls/hr 01/31/24 10:00 02/01/24 10:35 Chloride IV 01/30/25 09:59 200 mls/hr Q24H RACHANA Administration Insulin Aspart 0 units 01/28/24 22:45 02/01/24 11:44 Insulin Aspart 300 Units/3 Ml Insuln.Pen SUBCUT 01/27/25 22:44 4 units TID.WM.HS RACHANA Administration Protocol Isosorbide Dinitrate 20 mg 01/29/24 09:00 02/01/24 08:44 Isosorbide Dinitrate 20 Mg Tablet PO 01/28/25 08:59 20 mg BID RACHANA Administration Levothyroxine Sodium 50 mcg 01/30/24 06:30 02/01/24 06:03 Levothyroxine 50 Mcg Tablet PO 01/29/25 06:29 50 mcg DAILY@0630 RACHANA Administration Loperamide HCl 2 mg 01/30/24 10:32 02/01/24 13:28 Loperamide 2 Mg Capsule PO 01/29/25 10:31 2 mg Q2H PRN Administration Diarrhea Nitroglycerin 0.4 mg 01/28/24 21:44 Nitroglycerin 0.4 Mg Tab.Subl SUBLINGUAL 01/27/25 21:43 Q5MIN.X3 PRN Chest Pain Nystatin 1 applic 01/30/24 09:00 02/01/24 09:08 Nystatin 100,000 Unit/Gram Powder 15 Gm Bottle TOPICAL 01/29/25 08:59 1 applic QID RACHANA Administration Sodium Chloride 0 ml 01/29/24 14:07 01/31/24 15:24 Sodium Chloride 0.9 % 10 Ml Syringe IV-PUSH 01/28/25 14:06 10 ml PRN PRN Administration Flush Sodium Chloride 0 ml 01/30/24 08:36 01/31/24 16:52 Sodium Chloride 0.9 % 10 Ml Syringe IV-PUSH 01/29/25 08:35 40 ml PRN PRN Administration Flush Sodium Chloride 0 ml 01/31/24 22:00 02/01/24 05:59 Sodium Chloride 0.9 % 10 Ml Syringe IV-PUSH 01/30/25 21:59 10 ml QSHIFT RACHANA Administration Vitamin D 50 mcg 02/01/24 09:00 02/01/24 08:43 Cholecalciferol 25 Mcg (1,000 Units) Tablet PO 01/31/25 08:59 50 mcg DAILY RACHANA Administration Zinc Oxide 1 applic 01/29/24 00:31 02/01/24 09:09 Zinc Oxide 20% Ointment 56 Gm Tube TOPICAL 01/28/25 00:30 1 applic PRN PRN Administration Skin Irritation A&P - Hospitalist Assessment/Plan (1) Acute kidney injury superimposed on CKD: Plan as above Documented By: Farhan Hudson DO 02/01/24 13 45 Signed By: <Electronically signed by Farhan Hudson DO> 02/01/24 1458 [facility] Work Phone: [phone]) 979-311203-15-2024 Progress note Author Lia Law [facility] February 01, 2024 1:11pm Note Date/Time February 01, 2024 1:1 1pm [facility] [address] [place] [address] Nephrology Progress Note Signed Patient: Adwoa Porter MR#: [id number] : 1955 Acct:[id number] Age/Sex: 68 / M Adm Date: 4 Loc: Room: 6U0884-1 Type: ADM IN Attending Dr: Farhan Hudson DO Copies to: ~ Date of Service: 02/01/2024 Subjective Subjective Narrative: This is 68-year-old male patient with past medical history of systolic heart failure ejection fraction 10 to 15%, CKD stage III baseline creatinine around 1.5 mg deciliter last year, type 2 diabetes, hyperlipidemia, AICD in place, hypertension, COPD. Patient was admitted recently to [facility] for septic shock from cellulitis. Patient was stabilized and discharged to [facility] withamikacin and 2 other antibiotics. Lab at [facility] revealed SHIRA, hyperkalemia and hyponatremia and patient was sent to [facility]. Lab work this morning revealed potassium 5.3 mg deciliter, BUN 105, serum bicarb 15,potassium 6.1, sodium 123, hemoglobin 9.9 g deciliter, white cell count 18.8. Chest x-ray at admission revealed left basilar infiltrate with possible effusion. Lab also revealed high BNP at 1600. Renal team is consulted for acute kidney injury. Patient has been anuric since admission. Currently on 2 Lnasal cannula. I reviewed the current inpatient medications. Currently on ceftriaxone 1 g every 24 hours, linezolid 600 mg every 12 hours. Patient also was given 2 dosesof Lokelma for hyperkalemia. Patient is currently on 100 cc/h normal saline. There has been no NSAID use. No IV contrast exposure. Interval history Patient was seen and examined in his room. Hemodialysis was started January 28 for severe SHIRA, hyperkalemia and hyponatremia along with oliguria. There has been no recovery of kidney function so far. Last hemodialysis sessionwas yesterday Hyponatremia and hyperkalemia corrected with hemodialysis Antibiotics was switched to ertapenem and Zyvox per ID for lower extremity infected wound Denied worsening breathing. No chest pain. No nausea no vomiting. Patient hasbeen eating well Exam Physical Exam Vital Signs: Temp Pulse Resp BP Pulse Ox O2 Del Method O2 Flow Rate 98.4 F 85 14 110/66 97 BiPAP 2 02/01/24 11:52 02/01/24 11:52 02/01/24 11:52 02/01/24 11:52 02/01/24 11:52 02/01/24 11:52 02/01/24 11:52 FiO2 10 02/01/24 11:52 Narrative: General: No acute distress Head :atraumatic normocephalic Eyes: PERRLA. Neck: no JVD no bruit. Heart: S1-S2. RRR Respiratory: Clear to auscultation. No wheezing. No crackles Abdomen: Soft, positive bowel sounds,no tenderness. Neurology: Awake alert oriented x3. No focal deficits Extremity. No cyanosis. Both feet are wrapped. Patient has +1 edema of lower extremity Skin: No skin rash Objective Intake and Output I&O: Intake & Output 01/29/24 01/30/24 01/31/24 02/01/24 23:59 23:59 23:59 23:59 Intake Total 2870 / 2870 1950 / 1950 1250 / 1250 420 / 420 Output Total 1501 / 1501 2506 / 2506 2438 / 2438 Balance 1369 / 1369 -556 / -556 -1188 / -1188 420 / 420 Weight 206 lb 2.115 oz 208 lb 12.444 oz 208 lb 1.862 oz 202 lb 6.15 oz Meds and Allergies Meds: Active Medications Hydrocodone Bitart/Acetaminophen (Hydrocodone/Acetaminophen 5-325 Mg Tablet) 1 tab PO TID PRN PRN Reason: Pain Last Admin: 02/01/24 08:50 Dose: 1 tab Albuterol (Albuterol Neb 2.5 Mg/3 Ml Vial.Neb) 2.5 mg INHALATION Q4H PRN PRN Reason: breathing Stop: 01/27/25 21:48 Aspirin (Aspirin 81 Mg Tablet.) 81 mg PO DAILY RACHANA Stop: 01/31/25 08:59 Last Admin: 02/01/24 08:44 Dose: 81 mg Atorvastatin Calcium (Atorvastatin 80 Mg Tablet) 80 mg PO DAILY RACHANA Stop: 01/28/25 08:59 Last Admin: 02/01/24 08:45 Dose: 80 mg Budesonide/Formoterol Fumarate (Budesonide/Formoterol 160-4.5 Mcg 60 Puff/6 Gm Hfa.Aer.Ad) 2 puff INHALATION BID RACHANA Stop: 01/31/25 08:59 Carvedilol (Carvedilol 12.5 Mg Tablet) 12.5 mg PO BID [facility] Stop: 01/28/25 08:59 Last Admin: 02/01/24 08:44 Dose: 12.5 mg Cyanocobalamin (Cyanocobalamin 1,000 Mcg Tablet) 1,000 mcg PO DAILY [facility] Stop: 01/31/25 08:59 Last Admin: 02/01/24 08:44 Dose: 1,000 mcg Gabapentin (Gabapentin 100 Mg Capsule) 200 mg PO TID PRN PRN Reason: nerve pain Stop: 01/30/25 21:59 Last Admin: 02/01/24 11:14 Dose: 200 mg Heparin Sodium (Porcine) (Heparin 5,000 Unit/Ml Vial) 5,000 unit SUBCUT Q8HR [facility] Stop: 01/27/25 21:59 Last Admin: 02/01/24 05:58 Dose: Not Given Heparin Sodium (Porcine) (Heparin-Lock 500 Unit/5 Ml Syringe) 500 unit IV-PUSH QSHIFT [facility] Stop: 01/30/25 21:59 Last Admin: 02/01/24 05:59 Dose: Not Given Heparin Sodium (Porcine) (Heparin 10,000 Unit/10 Ml Vial) 3,800 unit IV PRN PRN PRN Reason: Dialysis Stop: 01/28/25 14:06 Last Admin: 01/31/24 16:49 Dose: 3,800 unit Hydralazine HCl (Hydralazine 50 Mg Tablet) 50 mg PO TID [facility] Stop: 01/27/25 21:59 Last Admin: 02/01/24 08:44 Dose: 50 mg Linezolid (Zyvox) 600 mg in 300 mls @ 300 mls/hr IV Q12H [facility] Last Admin: 02/01/24 11:10 Dose: 300 mls/hr Sodium Chloride (0.9% Sodium Chloride 1,000 Ml) 1,000 mls @ 0 mls/hr MISCELLANE.Q0M PRN PRN Reason: Dialysis Stop: 01/28/25 14:06 Last Infusion: 01/30/24 14:26 Dose: Infused Sodium Chloride (0.9% Sodium Chloride 1,000 Ml) 1,000 mls @ 0 mls/hr MISCELLANE.Q0M PRN PRN Reason: Dialysis Stop: 01/29/25 08:35 Last Infusion: 01/31/24 16:59 Dose: Infused Ertapenem 0.5 gm/ Sodium (Chloride) 100 mls @ 200 mls/hr IV Q24H [facility] Stop: 01/30/25 09:59 Last Admin: 02/01/24 10:35 Dose: 200 mls/hr Insulin Aspart (Insulin Aspart 300 Units/3 Ml Insuln.Pen) 0 units SUBCUT TID..[facility]; Protocol Stop: 01/27/25 22:44 Last Admin: 02/01/24 11:44 Dose: 4 units Isosorbide Dinitrate (Isosorbide Dinitrate 20 Mg Tablet) 20 mg PO BID [facility] Stop: 01/28/25 08:59 Last Admin: 02/01/24 08:44 Dose: 20 mg Levothyroxine Sodium (Levothyroxine 50 Mcg Tablet) 50 mcg PO DAILY@0630 [facility] Stop: 01/29/25 06:29 Last Admin: 02/01/24 06:03 Dose: 50 mcg Loperamide HCl (Loperamide 2 Mg Capsule) 2 mg PO Q2H PRN PRN Reason: Diarrhea Stop: 01/29/25 10:31 Last Admin: 02/01/24 09:08 Dose: 2 mg Nitroglycerin (Nitroglycerin 0.4 Mg Tab.Subl) 0.4 mg SUBLINGUAL Q5MIN.X3 PRN PRN Reason: Chest Pain Stop: 01/27/25 21:43 Nystatin (Nystatin 100,000 Unit/Gram Powder 15 Gm Bottle) 1 applic TOPICAL QID [facility] Stop: 01/29/25 08:59 Last Admin: 02/01/24 09:08 Dose: 1 applic Sodium Chloride (Sodium Chloride 0.9 % 10 Ml Syringe) 0 ml IV-PUSH PRN PRN PRN Reason: Flush Stop: 01/28/25 14:06 Last Admin: 01/31/24 15:24 Dose: 10 ml Sodium Chloride (Sodium Chloride 0.9 % 10 Ml Syringe) 0 ml IV-PUSH PRN PRN PRN Reason: Flush Stop: 01/29/25 08:35 Last Admin: 01/31/24 16:52 Dose: 40 ml Sodium Chloride (Sodium Chloride 0.9 % 10 Ml Syringe) 0 ml IV-PUSH QSHIFT [facility] Stop: 01/30/25 21:59 Last Admin: 02/01/24 05:59 Dose: 10 ml Vitamin D (Cholecalciferol 25 Mcg (1,000 Units) Tablet) 50 mcg PO DAILY RACHANA Stop: 01/31/25 08:59 Last Admin: 02/01/24 08:43 Dose: 50 mcg Zinc Oxide (Zinc Oxide 20% Ointment 56 Gm Tube) 1 applic TOPICAL PRN PRN PRN Reason: Skin Irritation Stop: 01/28/25 00:30 Last Admin: 02/01/24 09:09 Dose: 1 applic Allergies LUPIS Inhibitors Allergy (Unknown, Verified 01/08/24 05:36) Cough Results - Nephrology Labs 02/01/24 06:00 02/01/24 06:00 Labs: 02/01/24 06:00 BUN 35 H Creatinine 2.98 H Radiology Impressions Impressions - last 24 hours: Any impression(s) listed above is documentation that was entered by the reading physician into a diagnostic report(s) for Adwoa Porter. I have reviewed the report(s) and am incorporating any findings in the treatment plan of this patient where applicable. A&P - Nephrology Assessment/Plan (1) SHIRA (acute kidney injury): Plan: Acute kidney injury is likely amikacin induced ATN. Baseline creatinine around 1.4 mg deciliter. Patient likely has CKD from cardiorenal syndrome. Serum creatinine up to 5.3 mg/dL. Patient has been anuric since admission along with hyperkalemia, metabolic acidosis and hyponatremia (2) Hyponatremia: Plan: This is likely related to SHIRA and fluid overload. Serum sodium level today 123 mmol/L. Patient has been on normal saline 100 cc/h since admission (3) Hyperkalemia: Plan: This is likely related to amikacin effect and SHIRA along with metabolic acidosis. Patient was given 2 doses of Lokelma yesterday but potassium level is higher today at 6.1 (4) Metabolic acidosis: Plan: This is likely related to SHIRA. Serum bicarb level today 15. Patient has been anuric (5) Cellulitis of lower leg: Plan: Patient was admitted to [facility] recently with septic shock from cellulitis. Patient was discharged to SNF with amikacin, ceftriaxone and Zyvox. Currently amikacin and hold due to SHIRA. ID is following Plan * No recovery of kidney function. Patient had 3 consecutive hemodialysis sessions so far. No need for hemodialysis session today. * Next hemodialysis session will be tomorrow * Will continue to monitor for kidney function recovery. Please do daily renal function panel along with accurate urine output documentation * Right IJ tunnel catheter was placed January 30. I appreciate vascular surgery help * ID is following for antibiotics. Inpatient pharmacy to dose antibiotics for SHIRA and thrice weekly TTS hemodialysis sessions * Check CBC and renal function panel in a.m. prior to hemodialysis to adjust order as needed Renal team will continue to follow. Call if any question or concern. Documented By: Lia Law MD 02/01/24 1307 Signed By: <Electronically signed by Lia Law MD> 02/01/24 1311 [facility] Work Phone: [phone] 531-370703-15-2024 Progress note Author Farhan Schofield [facility] February 01, 2024 12:41pm Note Date/Time February 01, 2024 12: 41pm [facility] [address] [place] [address] Infect. Disease Progress Note Signed Patient: Adwoa Porter MR#: [id number] : 1955 Acct:[id number] Age/Sex: 68 / M Adm Date: 4 Loc: Room: [address] [place] [address] Type: ADM IN Attending Dr: Farhan Hudson DO Copies to: ~ Date of Service: 02/01/2024 Subjective Interval history: Patient got a right IJ tunneled catheter placement yesterday. Has BiPAP in place. Denies new physical complaints. Exam Physical Exam Vital Signs: Temp Pulse Resp BP Pulse Ox O2 Del Method O2 Flow Rate 98.4 F 85 14 110/66 97 BiPAP 2 02/01/24 11:52 02/01/24 11:52 02/01/24 11:52 02/01/24 11:52 02/01/24 11:52 02/01/24 11:52 02/01/24 11:52 FiO2 10 02/01/24 11:52 Narrative: Constitutional Exam: no acute distress Head Exam: normocephalic and atraumatic Eye Exam: EOMI and PERRL ENT Exam: mucous membranes moist Neck Exam: supple, no lymphadenopathy Chest Wall: new R IJ HD cath Respiratory Exam: no accessory muscle use or no respiratory distress, Lungs clear bilaterally Cardiovascular exam: RR GI/Abdominal Exam: soft, no tenderness, no distention Skin Exam: Bilateral foot dressings clean dry and intact Neurological Exam: no focal deficits, alert and oriented X3 Objective Labs CBC/BMP: CBC, BMP 02/01/24 06:00 Corrected WBC 11.4 H Uncorrected WBC Count 11.4 H RBC 3.24 L Hgb 8.7 L Hct 25.7 L Plt Count 285 Sodium 133 L Potassium 4.1 Chloride 96 L Carbon Dioxide 27.5 Anion Gap 13.6 BUN 35 H Creatinine 2.98 H Calcium 7.0 L Labs: 02/01/24 06:00 BUN 35 H Creatinine 2.98 H Microbiology Microbiology: Microbiology - Results from entire visit 01/29/24 20:30 Urine - Voided Urine Culture - Preliminary Klebsiella variicola 01/29/24 09:50 Foot,Left - Drainage Superficial Wound Culture - Final Light Normal Skin Cedric 2 Days Allergies and Medications Allergies and Active Meds Allergies LUPIS Inhibitors Allergy (Unknown, Verified 01/08/24 05:36) Cough Active Medications Hydrocodone Bitart/Acetaminophen (Hydrocodone/Acetaminophen 5-325 Mg Tablet) 1 tab PO TID PRN PRN Reason: Pain Last Admin: 02/01/24 08:50 Dose: 1 tab Albuterol (Albuterol Neb 2.5 Mg/3 Ml Vial.Neb) 2.5 mg INHALATION Q4H PRN PRN Reason: breathing Stop: 01/27/25 21:48 Aspirin (Aspirin 81 Mg Tablet.) 81 mg PO DAILY [facility] Stop: 01/31/25 08:59 Last Admin: 02/01/24 08:44 Dose: 81 mg Atorvastatin Calcium (Atorvastatin 80 Mg Tablet) 80 mg PO DAILY RACHANA Stop: 01/28/25 08:59 Last Admin: 02/01/24 08:45 Dose: 80 mg Budesonide/Formoterol Fumarate (Budesonide/Formoterol 160-4.5 Mcg 60 Puff/6 Gm Hfa.Aer.Ad) 2 puff INHALATION BID RACHANA Stop: 01/31/25 08:59 Carvedilol (Carvedilol 12.5 Mg Tablet) 12.5 mg PO BID RACHANA Stop: 01/28/25 08:59 Last Admin: 02/01/24 08:44 Dose: 12.5 mg Cyanocobalamin (Cyanocobalamin 1,000 Mcg Tablet) 1,000 mcg PO DAILY [facility] Stop: 01/31/25 08:59 Last Admin: 02/01/24 08:44 Dose: 1,000 mcg Gabapentin (Gabapentin 100 Mg Capsule) 200 mg PO TID PRN PRN Reason: nerve pain Stop: 01/30/25 21:59 Last Admin: 02/01/24 11:14 Dose: 200 mg Heparin Sodium (Porcine) (Heparin 5,000 Unit/Ml Vial) 5,000 unit SUBCUT Q8HR RACHANA Stop: 01/27/25 21:59 Last Admin: 02/01/24 05:58 Dose: Not Given Heparin Sodium (Porcine) (Heparin-Lock 500 Unit/5 Ml Syringe) 500 unit IV-PUSH QSHIFT [facility] Stop: 01/30/25 21:59 Last Admin: 02/01/24 05:59 Dose: Not Given Heparin Sodium (Porcine) (Heparin 10,000 Unit/10 Ml Vial) 3,800 unit IV PRN PRN PRN Reason: Dialysis Stop: 01/28/25 14:06 Last Admin: 01/31/24 16:49 Dose: 3,800 unit Hydralazine HCl (Hydralazine 50 Mg Tablet) 50 mg PO TID [facility] Stop: 01/27/25 21:59 Last Admin: 02/01/24 08:44 Dose: 50 mg Linezolid (Zyvox) 600 mg in 300 mls @ 300 mls/hr IV Q12H [facility] Last Admin: 02/01/24 11:10 Dose: 300 mls/hr Sodium Chloride (0.9% Sodium Chloride 1,000 Ml) 1,000 mls @ 0 mls/hr MISCELLANE.Q0M PRN PRN Reason: Dialysis Stop: 01/28/25 14:06 Last Infusion: 01/30/24 14:26 Dose: Infused Sodium Chloride (0.9% Sodium Chloride 1,000 Ml) 1,000 mls @ 0 mls/hr MISCELLANE.Q0M PRN PRN Reason: Dialysis Stop: 01/29/25 08:35 Last Infusion: 01/31/24 16:59 Dose: Infused Ertapenem 0.5 gm/ Sodium (Chloride) 100 mls @ 200 mls/hr IV Q24H [facility] Stop: 01/30/25 09:59 Last Admin: 02/01/24 10:35 Dose: 200 mls/hr Insulin Aspart (Insulin Aspart 300 Units/3 Ml Insuln.Pen) 0 units SUBCUT TID.WM.HS [facility]; Protocol Stop: 01/27/25 22:44 Last Admin: 02/01/24 11:44 Dose: 4 units Isosorbide Dinitrate (Isosorbide Dinitrate 20 Mg Tablet) 20 mg PO BID [facility] Stop: 01/28/25 08:59 Last Admin: 02/01/24 08:44 Dose: 20 mg Levothyroxine Sodium (Levothyroxine 50 Mcg Tablet) 50 mcg PO DAILY@0630 [facility] Stop: 01/29/25 06:29 Last Admin: 02/01/24 06:03 Dose: 50 mcg Loperamide HCl (Loperamide 2 Mg Capsule) 2 mg PO Q2H PRN PRN Reason: Diarrhea Stop: 01/29/25 10:31 Last Admin: 02/01/24 09:08 Dose: 2 mg Nitroglycerin (Nitroglycerin 0.4 Mg Tab.Subl) 0.4 mg SUBLINGUAL Q5MIN.X3 PRN PRN Reason: Chest Pain Stop: 01/27/25 21:43 Nystatin (Nystatin 100,000 Unit/Gram Powder 15 Gm Bottle) 1 applic TOPICAL QID [facility] Stop: 01/29/25 08:59 Last Admin: 02/01/24 09:08 Dose: 1 applic Sodium Chloride (Sodium Chloride 0.9 % 10 Ml Syringe) 0 ml IV-PUSH PRN PRN PRN Reason: Flush Stop: 01/28/25 14:06 Last Admin: 01/31/24 15:24 Dose: 10 ml Sodium Chloride (Sodium Chloride 0.9 % 10 Ml Syringe) 0 ml IV-PUSH PRN PRN PRN Reason: Flush Stop: 01/29/25 08:35 Last Admin: 01/31/24 16:52 Dose: 40 ml Sodium Chloride (Sodium Chloride 0.9 % 10 Ml Syringe) 0 ml IV-PUSH QSHIFT [facility] Stop: 01/30/25 21:59 Last Admin: 02/01/24 05:59 Dose: 10 ml Vitamin D (Cholecalciferol 25 Mcg (1,000 Units) Tablet) 50 mcg PO DAILY [facility] Stop: 01/31/25 08:59 Last Admin: 03/15/24 08:43 Dose: 50 mcg Zinc Oxide (Zinc Oxide 20% Ointment 56 Gm Tube) 1 applic TOPICAL PRN PRN PRN Reason: Skin Irritation Stop: 01/28/25 00:30 Last Admin: 02/01/24 09:09 Dose: 1 applic A&P - Infectious Disease Assessment/Plan (1) Chronic ulcer of left foot with necrosis of muscle: (2) Infected wound: (3) Leukocytosis: (4) Acute kidney injury superimposed on CKD: (5) Diabetes: Plan 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 Superficial culture taken from the left foot drainage here with light normal skin cedric only. Cultures were obtained from [place]. Antibiotics adjusted tolinezolid and ertapenem. Admission leukocytosis has improved. Today down to 11.4. Vascular continues to follow patient. No foot surgery planned for while he is here at this time he will follow-up with Dr. Arroyo upon discharge Documented By: Farhan Schofield MD 02/01/24 1237 Signed By: <Electronically signed by MD Farhan Schofield> 02/01/24 1241 [facility] Work Phone: 1(830) 102-991903-15-2024 Progress note Author Selin George [facility] February 01, 2024 11:33am Note Date/Time February 01, 2024 8:4 6am [facility] [address] [place] [address] Vascular Surgery Progress Note Signed Patient: Adwoa Porter MR#: [id number] : 1955 Acct:[id number] Age/Sex: 68 / M Adm Date: 4 Loc: Room: [address] [place] [address] Type: ADM IN Attending Dr: Farhan Hudson DO Copies to: ~ Date of Service: 02/01/2024 Subjective Subjective Interval history: Mr. Brink is a 68-year-old male with a past medical history of CKD, systolic heart failure who was admitted for a worsening foot wound. Patient had a central venous dialysis catheter placed in the right internal jugular vein on 01/31/2024, and removal of Mahurkar catheter in the right common femoral vein. Patient states that he is doing well this morning. Denies any fevers, chills, nausea, vomiting. Denies any pain today. There was some bleeding that needed apressure bandage put on last night from the right common femoral vein site. Otherwise patient states that he did well with no other overnight events. Denies any chest pain shortness of breath today Exam Physical Exam Vital Signs: Temp Pulse Resp BP Pulse Ox O2 Del Method O2 Flow Rate 97.4 F L 86 16 123/76 98 Nasal Cannula 2 02/01/24 04:00 02/01/24 04:00 02/01/24 04:00 02/01/24 04:00 02/01/24 04:00 02/01/24 04:00 02/01/24 04:00 FiO2 30 02/01/24 02:49 Narrative: Surgical site of the right IJ is clean with minimal serosanguineous drainage. There is some mild ecchymosis present. No erythema, warmth, purulent drainage. The right common femoral vein site is clean and dry with minimal serosanguineousdrainage. No erythema, warmth, purulent drainage. Chest is clear to auscultate bilaterally with no wheezes, rales, rhonchi. Heart rate and rhythm is regular, with normal S1 and 2 Objective Labs 02/01/24 06:00 02/01/24 06:00 Other Labs: Laboratory Results - last 24 hr 01/30/24 01/31/24 01/31/24 15:32 12:23 19:41 Corrected WBC Uncorrected WBC Count RBC Hgb Hct MCV MCH MCHC RDW Plt Count MPV Neut % (Auto) Lymph % (Auto) Meagher % (Auto) Eos % (Auto) Baso % (Auto) Nucleat RBC Rel Count Neut # (Auto) Lymph # (Auto) Meagher # (Auto) Eos # (Auto) Baso # (Auto) PT INR APTT PHA Creatinine Clear Sodium Potassium Chloride Carbon Dioxide Anion Gap BUN Creatinine Est GFR (CKD-EPI) Glucose POC Glucose 191 116 Calcium HCV RNA (PCR) IU/mL N/A 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 N/A 02/01/24 02/01/24 06:00 08:04 Corrected WBC 11.4 H Uncorrected WBC Count 11.4 H RBC 3.24 L Hgb 8.7 L Hct 25.7 L MCV 79.4 L MCH 26.8 L MCHC 33.8 RDW 17.2 H Plt Count 285 MPV 7.3 Neut % (Auto) 82.0 Lymph % (Auto) 10.2 Meagher % (Auto) 4.9 Eos % (Auto) 2.0 Baso % (Auto) 0.9 Nucleat RBC Rel Count 0.0 Neut # (Auto) 9.4 H Lymph # (Auto) 1.2 Meagher # (Auto) 0.6 Eos # (Auto) 0.2 Baso # (Auto) 0.1 PT 21.5 H INR 1.9 APTT 36.7 H PHA Creatinine Clear 26.53 Sodium 133 L Potassium 4.1 Chloride 96 L Carbon Dioxide 27.5 Anion Gap 13.6 BUN 35 H Creatinine 2.98 H Est GFR (CKD-EPI) 21.976 Glucose 169 H POC Glucose 202 Calcium 7.0 L HCV RNA (PCR) IU/mL 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 He will be scheduled for bilateral upper extremity vein mapping at follow-up in our office. This has been added to his discharge instructions. Continue with wound management He will still need the diagnostic/therapeutic angiogram to further evaluate his blood supply for healing. This will be scheduled for Sunday. He does not need to remain inpatient over the weekend for this procedure. This can be done on the outpatient basis. Procedure, risk, benefits were discussed with the patientand family at length and all questions were addressed. Consent was obtained today. Documented By: Raul Bravo MD 02/01/24 0863 Signed By: <Electronically signed by Raul Bravo MD> 02/01/24 0959 <Electronically signed by CHARISSE George> 02/01/24 4528 [facility] Work Phone: [phone]) 559-766003-14-2024 Progress note Author Farhan Hudson [facility] January 31, 2024 9:28pm Note Date/Time January 31, 2024 9:2 8pm [facility] [address] [place] [address] Hospitalist Progress Note Signed Patient: Adwoa Porter MR#: [id number] : 1955 Acct:[id number] Age/Sex: 68 / M Adm Date: 4 Loc: 4 Room: 7G0883-5 Type: ADM IN Attending Dr: Farhan Hudson DO Copies to: ~ Date of Service: 01/31/2024 Subjective Subjective Narrative: Patient seen and examined at bedside this evening. Sitting up in bed with no acute complaints. Discussed his home gabapentin and is asked for this to be restarted but really complains of no acute pain presently. Physical Examination: GENERAL APPEARANCE: Alert, up in bed AAOx3 HEENT: NCAT, mildly dry mucous membrane CARDIAC: Normal S1 and S2. Somewhat distant heart sounds, possible systolic murmur at the left heart border noted LUNGS: Clear to auscultation bilaterally. no wheeze/rhonchi/rales ABDOMEN: Protuberant, somewhat obese but nontender abdomen EXTREMITIES: Some chronic venous stasis changes bilaterally, his left lower extremity has dressing in place to the left foot and significant pitting edema up through the knee. Wound VAC present NEUROLOGICAL: No focal deficits PSYCHIATRIC: Appropriate mood and affect Assessment and plan: 1. Acute kidney injury on chronic kidney disease stage III 2. Chronic systolic congestive heart failure with reduced ejection fraction - status post pacer ICD 3. Paroxysmal atrial fibrillation 4. COPD 5. Insulin-dependent diabetes mellitus type 2 6. Hypothyroidism 7. Hyperlipidemia 8 Essential hypertension 9. Anemia of chronic kidney disease 10. Paraproteinemia Amikacin toxicity resulting in acute on chronic renal failure. Appreciate nephrology recommendations. Dialysis as needed. Difficult to prognosis long-term but for now assured the patient that he will likely need dialysis for the foreseeable future with guarded prognosis of any significant GFR recovery if anyat all. Antibiotics transitioned to IV ertapenem, Rocephin discontinued. Linezolid 600 mg twice daily IV. No clinical progression of infection off of any amikacin anddoubt any true clinical utility of this antibiotic. Will monitor for any fevers. PVR showed moderate vascular disease of bilateral lower extremities. Surgical planning is currently pending. Possible partial or more extensive amputation pending results. Patient was coagulopathic with elevated INR during recent hospitalization and was discharged on a lower dose Coumadin regimen as a result. His INR has been therapeutic range at 2.5-2.6 earlier admission. Ultimately with multiple antibiotics this is not the ideal agent for likely interactions and difficult dosing, risk of labile INR. He is only receiving prophylactic dose heparin at the moment and I will recheck coagulation studies tomorrow. This is presumably for his history of paroxysmal atrial fibrillation and he is undoubtedly at high risk of stroke with this diagnosis. On telemetry it seems he remains in a sinusrhythm. He would benefit from Eliquis for long-term anticoagulation however I am hesitant to initiate this at the moment until surgical date can be confirmed. If his INR is subtherapeutic in the coming days may consider heparin drip but would prefer to spare the patient frequent lab draws. Many of his home meds were placed on hold initially including his scheduled gabapentin. I have decreased the dose of this to 200 and the dosing as needed. With HD initiation but has not at risk for toxicity now. Exam Physical Exam Vital Signs: Temp Pulse Resp BP Pulse Ox O2 Del Method O2 Flow Rate 97.5 F L 90 18 122/72 99 Nasal Cannula 2 01/31/24 20:00 01/31/24 21:03 01/31/24 20:00 01/31/24 21:06 01/31/24 20:00 01/31/24 20:00 01/31/24 20:00 Objective Lab Results 01/31/24 04:00 01/31/24 04:00 Microbiology Results Microbiology 01/29/24 20:30 Urine - Voided Urine Culture - Preliminary Klebsiella variicola 01/29/24 09:50 Foot,Left - Drainage Superficial Wound Culture - Final Light Normal Skin Cedric 2 Days Meds Allergies and Active Meds Allergies LUPIS Inhibitors Allergy (Unknown, Verified 01/08/24 05:36) Cough Active Meds: Active Medications Generic Name Dose Route Start Last Admin Trade Name Freq PRN Reason Stop Dose Admin Hydrocodone Bitart/Acetaminophen 1 tab 01/28/24 21:44 01/31/24 21:12 Hydrocodone/Acetaminophen 5-325 Mg Tablet PO 1 tab TID PRN Administration Pain Albuterol 2.5 mg 01/28/24 21:49 Albuterol Neb 2.5 Mg/3 Ml Vial.Neb INHALATION 01/27/25 21:48 Q4H PRN breathing Atorvastatin Calcium 80 mg 01/29/24 09:00 01/31/24 09:29 Atorvastatin 80 Mg Tablet PO 01/28/25 08:59 Not Given DAILY RACHANA Carvedilol 12.5 mg 01/29/24 09:00 01/31/24 21:11 Carvedilol 12.5 Mg Tablet PO 01/28/25 08:59 12.5 mg BID RACHANA Administration Heparin Sodium (Porcine) 5,000 unit 01/28/24 22:00 01/31/24 21:08 Heparin 5,000 Unit/Ml Vial SUBCUT 01/27/25 21:59 Not Given Q8HR RACHANA Heparin Sodium (Porcine) 500 unit 01/31/24 22:00 01/31/24 21:07 Heparin-Lock 500 Unit/5 Ml Syringe IV-PUSH 01/30/25 21:59 Not Given QSHIFT [facility] Heparin Sodium (Porcine) 3,800 unit 01/31/24 16:13 01/31/24 16:49 Heparin 10,000 Unit/10 Ml Vial IV 01/28/25 14:06 3,800 unit PRN PRN Administration Dialysis Hydralazine HCl 50 mg 01/28/24 22:00 01/31/24 21:11 Hydralazine 50 Mg Tablet PO 01/27/25 21:59 50 mg TID RACHANA Administration Linezolid 600 mg in 300 mls @ 300 mls/hr 01/28/24 22:30 01/31/24 11:19 Zyvox IV 300 mls/hr Q12H RACHANA Administration Sodium Chloride 1,000 mls @ 0 mls/hr 01/29/24 14:07 01/30/24 14:26 0.9% Sodium Chloride 1,000 Ml MISCELLANE 01/28/25 14:06 Infused .Q0M PRN Infusion Dialysis As Directed Sodium Chloride 1,000 mls @ 0 mls/hr 01/30/24 08:36 01/31/24 16:59 0.9% Sodium Chloride 1,000 Ml MISCELLANE 01/29/25 08:35 Infused .Q0M PRN Infusion Dialysis As Directed Ertapenem 0.5 gm/ Sodium 100 mls @ 200 mls/hr 01/31/24 10:00 01/31/24 10:34 Chloride IV 01/30/25 09:59 200 mls/hr Q24H RACHANA Administration Insulin Aspart 0 units 01/28/24 22:45 01/31/24 21:13 Insulin Aspart 300 Units/3 Ml Insuln.Pen SUBCUT 01/27/25 22:44 Not Given TID.WM.HS [facility] Protocol Isosorbide Dinitrate 20 mg 01/29/24 09:00 01/31/24 21:11 Isosorbide Dinitrate 20 Mg Tablet PO 01/28/25 08:59 20 mg BID RACHANA Administration Levothyroxine Sodium 50 mcg 01/30/24 06:30 01/31/24 06:39 Levothyroxine 50 Mcg Tablet PO 01/29/25 06:29 50 mcg DAILY@0630 RACHANA Administration Loperamide HCl 2 mg 01/30/24 10:32 01/31/24 13:15 Loperamide 2 Mg Capsule PO 01/29/25 10:31 2 mg Q2H PRN Administration Diarrhea Nitroglycerin 0.4 mg 01/28/24 21:44 Nitroglycerin 0.4 Mg Tab.Subl SUBLINGUAL 01/27/25 21:43 Q5MIN.X3 PRN Chest Pain Nystatin 1 applic 01/30/24 09:00 01/31/24 21:14 Nystatin 100,000 Unit/Gram Powder 15 Gm Bottle TOPICAL 01/29/25 08:59 1 applic QID RACHANA Administration Sodium Chloride 0 ml 01/29/24 14:07 01/31/24 15:24 Sodium Chloride 0.9 % 10 Ml Syringe IV-PUSH 01/28/25 14:06 10 ml PRN PRN Administration Flush Sodium Chloride 0 ml 01/30/24 08:36 01/31/24 16:52 Sodium Chloride 0.9 % 10 Ml Syringe IV-PUSH 01/29/25 08:35 40 ml PRN PRN Administration Flush Sodium Chloride 0 ml 01/31/24 22:00 01/31/24 21:14 Sodium Chloride 0.9 % 10 Ml Syringe IV-PUSH 01/30/25 21:59 10 ml QSHIFT RACHANA Administration Zinc Oxide 1 applic 01/29/24 00:31 01/29/24 05:00 Zinc Oxide 20% Ointment 56 Gm Tube TOPICAL 01/28/25 00:30 1 applic PRN PRN Administration Skin Irritation A&P - Hospitalist Assessment/Plan (1) Acute kidney injury superimposed on CKD: Plan as above Documented By: Farhan Hudson DO 01/31/24 Signed By: <Electronically signed by Farhan Hudson DO> 01/31/247 [facility] Work Phone: [phone] 110-597403-14-2024 Progress note Author Farhan Hudson [facility] January 31, 2024 2:00pm Note Date/Time January 30, 2024 8:3 2pm [facility] [address] [place] [address] Hospitalist Progress Note Signed Patient: Adwoa Porter MR#: [id number] : 1955 Acct:[id number] Age/Sex: 68 / M Adm Date: 4 Loc: Room: [address] [place] [address] Type: ADM IN Attending Dr: Farhan Hudson DO Copies to: ~ Date of Service: 01/30/2024 Subjective Subjective Narrative: Patient with movement at the bedside this morning. Physical Examination: GENERAL APPEARANCE: Alert, up in bed AAOx3 HEENT: NCAT, mildly dry mucous membrane CARDIAC: Normal S1 and S2. Somewhat distant heart sounds, possible systolic murmur at the left heart border noted LUNGS: Clear to auscultation bilaterally. no wheeze/rhonchi/rales ABDOMEN: Protuberant, somewhat obese but nontender abdomen EXTREMITIES: Some chronic venous stasis changes bilaterally, his left lower extremity has dressing in place to the left foot and significant pitting edema up through the knee. Wound VAC present NEUROLOGICAL: No focal deficits PSYCHIATRIC: Appropriate mood and affect Assessment and plan: 1. Acute kidney injury on chronic kidney disease stage III 2. Chronic systolic congestive heart failure with reduced ejection fraction - status post pacer ICD 3. Paroxysmal atrial fibrillation 4. COPD 5. Insulin-dependent diabetes mellitus type 2 6. Hypothyroidism 7. Hyperlipidemia 8 Essential hypertension 9. Anemia of chronic kidney disease 10. Paraproteinemia Amikacin toxicity resulting in acute on chronic renal failure. Appreciate nephrology recommendations. Dialysis as needed. Difficult to prognosis long-term but for now assured the patient that he will likely need dialysis for the foreseeable future with guarded prognosis of any significant GFR recovery if anyat all. Negative urinalysis. Remains on Rocephin and ceftriaxone. He was excoriated candidal rash around the scrotum 4 times daily nystatin. He has a mildly elevated gamma gap/paraproteinemia of unclear significance. At this timehe recently has multiple acute medical issues to have managed but we will continue to monitor this and consider further workup if thought to be at all clinically contributory. Likely a chronic finding. Appreciate infectious disease, podiatry and vascular surgery recommendations. Exam Physical Exam Vital Signs: Temp Pulse Resp BP Pulse Ox O2 Del Method O2 Flow Rate 97 F L 90 18 130/74 98 Room Air 2 01/30/24 17:37 01/30/24 17:37 01/30/24 17:37 01/30/24 17:37 01/30/24 17:37 01/30/24 17:37 01/30/24 15:55 Objective Lab Results 01/31/24 04:00 01/31/24 04:00 Microbiology Results Microbiology 01/29/24 09:50 Foot,Left - Drainage Superficial Wound Culture - Preliminary Light Normal Skin Cedric 1 Day 01/29/24 20:30 Urine - Voided Urine Culture - Preliminary Meds Allergies and Active Meds Allergies LUPIS Inhibitors Allergy (Unknown, Verified 01/08/24 05:36) Cough Active Meds: Active Medications Generic Name Dose Route Start Last Admin Trade Name Freq PRN Reason Stop Dose Admin Hydrocodone Bitart/Acetaminophen 1 tab 01/28/24 21:44 01/30/24 17:52 Hydrocodone/Acetaminophen 5-325 Mg Tablet PO 1 tab TID PRN Administration Pain Albuterol 2.5 mg 01/28/24 21:49 Albuterol Neb 2.5 Mg/3 Ml Vial.Neb INHALATION 01/27/25 21:48 Q4H PRN breathing Atorvastatin Calcium 80 mg 01/29/24 09:00 01/30/24 09:02 Atorvastatin 80 Mg Tablet PO 01/28/25 08:59 80 mg DAILY RACHANA Administration Carvedilol 12.5 mg 01/29/24 09:00 01/30/24 09:02 Carvedilol 12.5 Mg Tablet PO 01/28/25 08:59 12.5 mg BID RACHANA Administration Heparin Sodium (Porcine) 5,000 unit 01/28/24 22:00 01/30/24 15:29 Heparin 5,000 Unit/Ml Vial SUBCUT 01/27/25 21:59 Not Given Q8HR RACHANA Heparin Sodium (Porcine) 2,600 unit 01/29/24 14:07 01/29/24 15:13 Heparin 10,000 Unit/10 Ml Vial IV 01/28/25 14:06 2,600 unit PRN PRN Administration Dialysis Hydralazine HCl 50 mg 01/28/24 22:00 01/30/24 15:29 Hydralazine 50 Mg Tablet PO 01/27/25 21:59 Not Given TID RACHANA Ceftriaxone Sodium 1 gm in 50 mls @ 100 mls/hr 01/28/24 21:30 01/29/24 21:13 Rocephin IV 100 mls/hr Q24H RACHANA Administration Linezolid 600 mg in 300 mls @ 300 mls/hr 01/28/24 22:30 01/30/24 10:50 Zyvox IV 300 mls/hr Q12H RACHANA Administration Sodium Chloride 1,000 mls @ 0 mls/hr 01/29/24 14:07 01/30/24 14:26 0.9% Sodium Chloride 1,000 Ml MISCELLANE 01/28/25 14:06 Infused .Q0M PRN Infusion Dialysis As Directed Sodium Chloride 1,000 mls @ 0 mls/hr 01/30/24 08:36 0.9% Sodium Chloride 1,000 Ml MISCELLANE 01/29/25 08:35 .Q0M PRN Dialysis As Directed Insulin Aspart 0 units 01/28/24 22:45 01/30/24 17:52 Insulin Aspart 300 Units/3 Ml Insuln.Pen SUBCUT 01/27/25 22:44 3 units TID.WM.HS RACHANA Administration Protocol Isosorbide Dinitrate 20 mg 01/29/24 09:00 01/30/24 09:02 Isosorbide Dinitrate 20 Mg Tablet PO 01/28/25 08:59 20 mg BID RACHANA Administration Levothyroxine Sodium 50 mcg 01/30/24 06:30 01/30/24 07:31 Levothyroxine 50 Mcg Tablet PO 01/29/25 06:29 50 mcg DAILY@0630 RACHANA Administration Loperamide HCl 2 mg 01/30/24 10:32 01/30/24 17:52 Loperamide 2 Mg Capsule PO 01/29/25 10:31 2 mg Q2H PRN Administration Diarrhea Nitroglycerin 0.4 mg 01/28/24 21:44 Nitroglycerin 0.4 Mg Tab.Subl SUBLINGUAL 01/27/25 21:43 Q5MIN.X3 PRN Chest Pain Nystatin 1 applic 01/30/24 09:00 01/30/24 17:53 Nystatin 100,000 Unit/Gram Powder 15 Gm Bottle TOPICAL 01/29/25 08:59 1 applic QID RACHANA Administration Sodium Chloride 0 ml 01/29/24 14:07 01/30/24 14:25 Sodium Chloride 0.9 % 10 Ml Syringe IV-PUSH 01/28/25 14:06 40 ml PRN PRN Administration Flush Sodium Chloride 0 ml 01/30/24 08:36 Sodium Chloride 0.9 % 10 Ml Syringe IV-PUSH 01/29/25 08:35 PRN PRN Flush Zinc Oxide 1 applic 01/29/24 00:31 01/29/24 05:00 Zinc Oxide 20% Ointment 56 Gm Tube TOPICAL 01/28/25 00:30 1 applic PRN PRN Administration Skin Irritation A&P - Hospitalist Assessment/Plan (1) Acute kidney injury superimposed on CKD: Plan as above Documented By: Farhan Hudson DO 01/30/24 20 32 Signed By: <Electronically signed by Farhan Hudson DO> 01/31/24 1400 [facility] Work Phone: [phone]) 352-650903-14-2024 Procedure [facility]03-14-2024 Procedure [facility]03-14-2024 Progress note Author Farhan Schofield [facility] January 31, 2024 9:24am Note Date/Time January 31, 2024 9:1 0am [facility] [address] [place] [address] Infect. Disease Progress Note Signed Patient: Adwoa Porter MR#: [id number] : 1955 Acct:[id number] Age/Sex: 68 / M Adm Date: 4 Loc: 4 Room: [address] [place] [address] Type: ADM IN Attending Dr: Farhan Hudson DO Copies to: ~ Date of Service: 01/31/2024 Subjective Interval history: Patient awake but does BiPAP in place. States he is comfortable and had an okaynight. Complaining of some discomfort in the legs. Overnight afebrile. Exam Physical Exam Vital Signs: Temp Pulse Resp BP Pulse Ox O2 Del Method O2 Flow Rate 97.1 F L 88 20 109/69 98 Room Air 2 01/31/24 04:00 01/31/24 04:00 01/31/24 04:00 01/31/24 04:00 01/31/24 04:00 01/31/24 04:00 01/31/24 00:00 Narrative: Constitutional Exam: no acute distress Head Exam: normocephalic and atraumatic Eye Exam: EOMI and PERRL ENT Exam: mucous membranes moist Neck Exam: supple, no lymphadenopathy Chest Wall Exam: no tenderness Respiratory Exam: no accessory muscle use or no respiratory distress, Lungs clear bilaterally Cardiovascular exam: RR GI/Abdominal Exam: soft, no tenderness, no distention Skin Exam: Bilateral foot dressings clean dry and intact Neurological Exam: no focal deficits, alert and oriented X3 Objective Labs CBC/BMP: CBC, BMP 01/31/24 04:00 Corrected WBC 12.2 H Uncorrected WBC Count 12.2 H RBC 3.24 L Hgb 8.6 L Hct 25.6 L Plt Count 254 Sodium 131 L Potassium 3.8 Chloride 96 L Carbon Dioxide 26.9 Anion Gap 11.9 BUN 46 H Creatinine 3.23 H D Calcium 7.0 L Labs: 01/31/24 04:00 BUN 46 H Creatinine 3.23 H D Microbiology Microbiology: Microbiology - Results from entire visit 01/29/24 09:50 Foot,Left - Drainage Superficial Wound Culture - Preliminary Light Normal Skin Cedric 1 Day 01/29/24 20:30 Urine - Voided Urine Culture - Preliminary Allergies and Medications Allergies and Active Meds Allergies LUPIS Inhibitors Allergy (Unknown, Verified 01/08/24 05:36) Cough Active Medications Hydrocodone Bitart/Acetaminophen (Hydrocodone/Acetaminophen 5-325 Mg Tablet) 1 tab PO TID PRN PRN Reason: Pain Last Admin: 01/30/24 17:52 Dose: 1 tab Albuterol (Albuterol Neb 2.5 Mg/3 Ml Vial.Neb) 2.5 mg INHALATION Q4H PRN PRN Reason: breathing Stop: 01/27/25 21:48 Atorvastatin Calcium (Atorvastatin 80 Mg Tablet) 80 mg PO DAILY RACHANA Stop: 01/28/25 08:59 Last Admin: 03/13/24 09:02 Dose: 80 mg Carvedilol (Carvedilol 12.5 Mg Tablet) 12.5 mg PO BID [facility] Stop: 01/28/25 08:59 Last Admin: 01/30/24 20:37 Dose: 12.5 mg Heparin Sodium (Porcine) (Heparin 5,000 Unit/Ml Vial) 5,000 unit SUBCUT Q8HR [facility] Stop: 01/27/25 21:59 Last Admin: 01/31/24 06:38 Dose: Not Given Heparin Sodium (Porcine) (Heparin 10,000 Unit/10 Ml Vial) 2,600 unit IV PRN PRN PRN Reason: Dialysis Stop: 01/28/25 14:06 Last Admin: 01/29/24 15:13 Dose: 2,600 unit Hydralazine HCl (Hydralazine 50 Mg Tablet) 50 mg PO TID [facility] Stop: 01/27/25 21:59 Last Admin: 01/31/24 03:12 Dose: Not Given Ceftriaxone Sodium (Rocephin) 1 gm in 50 mls @ 100 mls/hr IV Q24H [facility] Last Admin: 01/30/24 20:37 Dose: 100 mls/hr Linezolid (Zyvox) 600 mg in 300 mls @ 300 mls/hr IV Q12H [facility] Last Admin: 01/30/24 21:37 Dose: 300 mls/hr Sodium Chloride (0.9% Sodium Chloride 1,000 Ml) 1,000 mls @ 0 mls/hr MISCELLANE.Q0M PRN PRN Reason: Dialysis Stop: 01/28/25 14:06 Last Infusion: 01/30/24 14:26 Dose: Infused Sodium Chloride (0.9% Sodium Chloride 1,000 Ml) 1,000 mls @ 0 mls/hr MISCELLANE.Q0M PRN PRN Reason: Dialysis Stop: 01/29/25 08:35 Insulin Aspart (Insulin Aspart 300 Units/3 Ml Insuln.Pen) 0 units SUBCUT TID.WM.HS [facility]; Protocol Stop: 01/27/25 22:44 Last Admin: 01/31/24 08:51 Dose: Not Given Isosorbide Dinitrate (Isosorbide Dinitrate 20 Mg Tablet) 20 mg PO BID [facility] Stop: 01/28/25 08:59 Last Admin: 03/13/24 20:37 Dose: 20 mg Levothyroxine Sodium (Levothyroxine 50 Mcg Tablet) 50 mcg PO DAILY@0630 RACHANA Stop: 01/29/25 06:29 Last Admin: 01/31/24 06:39 Dose: 50 mcg Loperamide HCl (Loperamide 2 Mg Capsule) 2 mg PO Q2H PRN PRN Reason: Diarrhea Stop: 01/29/25 10:31 Last Admin: 01/30/24 20:37 Dose: 2 mg Nitroglycerin (Nitroglycerin 0.4 Mg Tab.Subl) 0.4 mg SUBLINGUAL Q5MIN.X3 PRN PRN Reason: Chest Pain Stop: 01/27/25 21:43 Nystatin (Nystatin 100,000 Unit/Gram Powder 15 Gm Bottle) 1 applic TOPICAL QID RACHANA Stop: 01/29/25 08:59 Last Admin: 01/30/24 20:55 Dose: 1 applic Sodium Chloride (Sodium Chloride 0.9 % 10 Ml Syringe) 0 ml IV-PUSH PRN PRN PRN Reason: Flush Stop: 01/28/25 14:06 Last Admin: 01/30/24 14:25 Dose: 40 ml Sodium Chloride (Sodium Chloride 0.9 % 10 Ml Syringe) 0 ml IV-PUSH PRN PRN PRN Reason: Flush Stop: 01/29/25 08:35 Zinc Oxide (Zinc Oxide 20% Ointment 56 Gm Tube) 1 applic TOPICAL PRN PRN PRN Reason: Skin Irritation Stop: 01/28/25 00:30 Last Admin: 01/29/24 05:00 Dose: 1 applic A&P - Infectious Disease Assessment/Plan (1) Chronic ulcer of left foot with necrosis of muscle: (2) Infected wound: (3) Leukocytosis: (4) Acute kidney injury superimposed on CKD: (5) Diabetes: Plan Patient's creatinine remains elevated but has improved since yesterday. Patientremains on linezolid and ceftriaxone. Vascular has been consulted. PVRs have been ordered. Given necrotic changes of his foot concern for ongoing arterial disease is high. Will await vascular's review of PVRs and potential further plans of intervention. Continue to keep the foot clean with appropriate dressing changes. Based on culture results from [facility] though faxed copy difficult to see given blacked out names of organisms. ? 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 Change ceftriaxone to invanz; maintain linezolid. Documented By: Farhan Schofield MD 01/31/2407 Signed By: <Electronically signed by MD Farhan Schofield> 01/31/[address] [facility] Work Phone: [phone]) 379-683403-14-2024 Progress note Author Valentin Valle [facility] January 31, 2024 9:18am Note Date/Time January 31, 2024 9:1 6am [facility] [address] [place] [address] Podiatry Progress Note Signed Patient: Adwoa Porter MR#: [id number] : 1955 Acct:[id number] Age/Sex: 68 / M Adm Date: 4 Loc: 4 Room: [address] [place] [address] Type: ADM IN Attending Dr: Farhan Hudson DO Copies to: ~ Subjective Subjective Date of Service: Date of Service: 01/31/2024 Time of Service: 09:13 Narrative: Mr. Porter is a 68 year old male who is seen resting comfortably in bed. Patient denies any history of nausea, vomiting, fever or chills. Patient states that he has a history of smoking and he quit about 13 years ago. Patientdenies any history of vascular intervention in the past. Exam Physical Exam Vital Signs: Temp Pulse Resp BP Pulse Ox O2 Del Method O2 Flow Rate 97.1 F L 88 20 109/69 98 Room Air 2 01/31/24 04:00 01/31/24 04:00 01/31/24 04:00 01/31/24 04:00 01/31/24 04:00 01/31/24 04:00 01/31/24 00:00 Extrem Other: Vascular: DP and T PT pulse nonpalpable left. Dermatologic: The ulceration remains unchanged it still measures 6 cm in length by 8 cm in width by 1 point centimeters in depth with 70% noted neck?eschar and gangrenous necrotic tissue which is dry. There is very minimal drainage on the bandage. There is no evidence of erythema, edema, or odor noted at this time tothe left foot. 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 Patient's right CHARO was 1.4 and his left was 1.8. Code(s): E11.52 - Type 2 diabetes mellitus with diabetic peripheral angiopathy with gangrene (2) Surgical wound, non healing: Plan: The culture that was taken yesterday at bedside is still pending. Patient's white blood cell count is down from admission to 12.2. Patient's creatinine still elevated however continues to improve since admission. Patient's antibiotic therapy is currently being managed by Dr. Schofield and he is currently taking linezolid and ceftriaxone. I explained to the patient that once vascular had time to evaluate his case and the studies that have been done they will discuss with him any options for intervention. I also explained to the patient that if the patient needs further debridement or a more proximal foot amputation I do not feel comfortable doing that. If the patient ends up being revascularized he would need to follow-up with Dr. Arroyo and Dr. Reyes forfurther wound care or surgical intervention. I explained to the patient that when he gets discharged they will need to make an appointment with Dr. Arroyo. I do not feel comfortable doing a more proximal foot amputation as I was not trained in anything beyond an transmetatarsal amputation. If patient requires a more proximal foot amputation he may need to be seen and treated by Dr. Arroyo and Dr. Souza in order to do this procedure. I tried to explainto the patient that if he has poor circulation the wound will not heal and will continue to worsen which then could lead to wet gangrene, sepsis and if itis not treated appropriately. I explained the need for him to stay off his footis much as possible. Will continue with current wound care consisting of applying Adaptic to the wound bed followed by Thera honey and a gauze dressing daily. Patient's foot at this time is stable. Code(s): T81.89XA - Other complications of procedures, not elsewhere classified, initial encounter (3) Infected wound: Plan: Patient is being seen by infectious disease for antibiotic therapy. Still awaiting cultures pending pending. Code(s): T14.8XXA - Other injury of unspecified body region, initial encounter; L08.9 - Local infection of the skin and subcutaneous tissue, unspecified Plan Plan is previously mentioned under diabetic type II foot with gangrene. Documented By: Valentin Valle DPM 01/31/24 0913 Signed By: <Electronically signed by NELLY Valle> 01/31/24 0918 [facility] Work Phone: [phone]) 930-878603-14-2024 Consult note Author Raul Bravo [facility] January 31, 2024 8:34am Note Date/Time January 30, 2024 9:1 9am [facility] [address] [place] [address] Vascular Surgery Consult Note Signed Patient: Adwoa Porter MR#: [id number] : 1955 Acct:[id number] Age/Sex: 68 / M Adm Date: 4 Loc: 4 Room: [address] [place] [address] Type: ADM IN Attending Dr: Farhan Hudson DO Copies to: CHARISSE Guerrero MD Michael R. Frings, DO Vinnie Stewart, ~ HPI Consult HPI History of present illness: Mr. Porter is a 68 year old male with a past medical history of systolic heart failure with an EF of 10 to 15%, ISAK, and CKD stage III presented through the emergency department with concerns of worsening foot wound. Patient states that he has a 3-week long history of a left second toe ulcer. Patient denies any recent falls but states that he does have chronic falls. He states that he has been able to get around at home but has been more immobile and needing a walker to get around. Denies any family history of hypercoagulable diseases and deniesany other bleeding or clotting disorders. Denies any history of blood clots. Denies any vascular interventions in the past. He states that he has no pain inthe legs. Denies any claudication. He states that he had a first and fifth digit amputation of the left foot due to diabetes. Patient has had a recent I&Don the left foot for an abscess on the left foot 01/08/2024. Patient states thathe also has a right pressure ulcer on the foot. Patient is been seen by podiatry and infectious disease for these wounds. Patient denies any chest painor shortness of breath. Vascular surgery has been consulted by podiatry for thefoot wound as well as by nephrology due to patient need for tunneled hemodialysis catheter. Addendum: Per patient's web site admin, he has had a history of peripheral artery disease and has had history of stents, but patient denies any history of vascular interventions. cc:: CC: Farhan Hudson DO Data of Consult Consult date: 01/30/2024 Requesting Physician: Farhan Hudson DO Review of Systems Review of Systems Review of systems: Review of systems: Unless otherwise stated in the report or unable to obtain because of the patient's clinical or mental status as evidenced by the medical record, the patient's positive and negative responses for review of systems for constitutional, eyes, ENT, cardiovascular, respiratory, gastrointestinal, neurological, genitourinary, musculoskeletal and skin as well as related systemsto the presenting problem are either as stated in the HPI or were not pertinent or were negative for the systems and/or complaints related to the presenting medical problem. 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 Congestive heart failure On home O2 3L Amputated toe of left foot Appendicitis Diabetes mellitus Hypercholesteremia Numbness and tingling of both feet Numbness and tingling in both hands Cardiac defibrillator in place HTN (hypertension) COPD (chronic obstructive pulmonary disease) Surgical History History of cataract extraction bilateral History of appendectomy H/O cardiac catheterization Family History (Updated 11/22/23 @ 15:40 by Provider Conversion) Brother Legacy FamHx Relation: Brother(s) Cancer Legacy FamHx Relation: Brother(s); Legacy FamHx Problem: Diagnosed with Cancer Father Mother Diabetes Hypertension Heart disease Other CAD (coronary artery disease) Social History Smoking Status: Former smoker Tobacco Type: cigarettes Substance Use Type: Former User and Alcohol Social History Comments: lives in a trail[place] - with Promise (friend) Allergies & Active Medications Medications and Allergies Allergies LUPIS Inhibitors Allergy (Unknown, Verified 01/08/24 05:36) Cough Exam Physical Exam Vital Signs: Temp Pulse Resp BP Pulse Ox O2 Del Method O2 Flow Rate 97.4 F L 88 20 128/76 97 Nasal Cannula 2 01/30/24 04:00 01/30/24 04:00 01/30/24 04:00 01/30/24 04:00 01/30/24 04:00 01/30/24 04:00 01/30/24 04:00 Narrative: Const General: cooperative, comfortable Pulmonary Auscultation: clear to auscultation , no crackles, mild expiratory wheezes Cardiovascular Rate: normal rate Rhythm: regular rhythm Heart Sounds: S1 normal, S2 normal and no murmurs GI Inspection: non-distended Palpation: soft, not firm and nontender. No rigidity or rebound. Deferred Neuro General: alert, awake and oriented x3. No obvious new focal deficit Musculoskeletal: normal range of motion Extrem General: no cyanosis, patient has thin, shiny, and atrophic skin on the left with a postsurgical wound on the left foot. Patient has an area of eschar on the dorsal left second toe and posterior heel. Patient has grossly diminished sensation on the left plantar aspect of her foot. The foot feels slightly cool. There is a amputation of the left great toe as well as the fifth toe. Pulses are nonpalpable on the left dorsal pedal but palpable left femoral. There is a Doppler signal at the left dorsal pedal pulse. On the right patient has thin, shiny, and atrophic skin. There is an eschar on the right heel. Pulses are nonpalpable on the right dorsal pedal but palpable in the right femoral. There is a Doppler signal in the right dorsal pedal. Patient has normal sensation of the foot. Results - Vascular Surgery Labs 01/31/24 04:00 01/31/24 04:00 Labs: Laboratory Results - last 24 hr 01/28/24 01/29/24 01/29/24 22:30 09:01 20:30 Corrected WBC Uncorrected WBC Count RBC Hgb Hct MCV MCH MCHC RDW Plt Count MPV Neut % (Auto) Lymph % (Auto) Meagher % (Auto) Eos % (Auto) Baso % (Auto) Nucleat RBC Rel Count Neut # (Auto) Lymph # (Auto) Meagher # (Auto) Eos # (Auto) Baso # (Auto) PHA Creatinine Clear Sodium Potassium Chloride Carbon Dioxide Anion Gap BUN Creatinine Est GFR (CKD-EPI) Glucose POC Glucose 236 Calcium Urine Color Dark yellow A Urine Appearance Cloudy A Urine pH 5.0 Ur Specific Rimrock 1.019 Urine Protein 100 H Urine Glucose (UA) 500 H Urine Ketones Trace H Urine Occult Blood 3+ H Urine Nitrite Negative Urine Bilirubin Negative Urine Urobilinogen Normal Ur Leukocyte Esterase 3+ H Urine RBC 20-49 H Urine WBC 5-9 H Ur Squamous Epith Cells 0-1 Amorphous Sediment 2+ Urine Bacteria Rare H Hyaline Casts 0-8 Urine Yeast Budding yeast A C. difficile Tox B Gene Negative 01/29/24 01/30/24 01/30/24 21:25 05:25 07:41 Corrected WBC 13.6 H Uncorrected WBC Count 13.6 H RBC 3.32 L Hgb 8.8 L Hct 26.3 L MCV 79.3 L MCH 26.6 L MCHC 33.5 RDW 17.3 H Plt Count 279 MPV 7.5 Neut % (Auto) 83.7 Lymph % (Auto) 9.8 Meagher % (Auto) 3.8 Eos % (Auto) 1.7 Baso % (Auto) 1.0 Nucleat RBC Rel Count 0.0 Neut # (Auto) 11.3 H Lymph # (Auto) 1.3 Meagher # (Auto) 0.5 Eos # (Auto) 0.2 Baso # (Auto) 0.1 PHA Creatinine Clear 17.22 Sodium 128 L Potassium 4.2 D Chloride 95 L Carbon Dioxide 21.9 Anion Gap 15.3 H BUN 73 H D Creatinine 4.57 H D Est GFR (CKD-EPI) 13.156 Glucose 144 H POC Glucose 256 170 Calcium 7.1 L Urine Color Urine Appearance Urine pH Ur Specific Rimrock Urine Protein Urine Glucose (UA) Urine Ketones Urine Occult Blood Urine Nitrite Urine Bilirubin Urine Urobilinogen Ur Leukocyte Esterase Urine RBC Urine WBC Ur Squamous Epith Cells Amorphous Sediment Urine Bacteria Hyaline Casts Urine Yeast C. difficile Tox B Gene PT 29.2 Seconds (9.0-12.9) H 01/29/24 05:39 APTT 43.4 Seconds (25.1-36.5) H 01/29/24 05:39 A&P - Vascular (1) Controlled type 2 diabetes mellitus with diabetic polyneuropathy: Plan: Patient had a an ultrasound arterial series that demonstrates an CHARO of 1.4 on the right and 1.81 on the left Plan ABIs are likely falsely elevated and unreliable due to noncompressibility. Based on waveform this patient has moderate to severe disease bilaterally. He would benefit from diagnostic/therapeutic angiogram to further evaluate and hisblood supply for healing. Nephrology has also asked us to place a tunneled hemodialysis catheter which will be done this morning. Documented By: Raul Bravo MD 01/30/24 0842 Signed By: <Electronically signed by Raul Bravo MD> 01/31/24 0834 <Electronically signed by CHARISSE George> 01/31/24 0737 [facility] Work Phone: [phone] 148-533703-13-2024 Progress [facility] January 30, [facility]24 2:30pm Note Date/Time January 30, 2024 2:3 0pm [facility] [address] [place] [address] Nephrology Progress Note Signed Patient: Adwoa Porter MR#: [id number] : 1955 Acct:[id number] Age/Sex: 68 / M Adm Date: 4 Loc: Room: [address] [place] [address] Type: ADM IN Attending Dr: Farhan Hudson DO Copies to: ~ Date of Service: 01/30/2024 Subjective Subjective Narrative: This is 68-year-old male patient with past medical history of systolic heart failure ejection fraction 10 to 15%, CKD stage III baseline creatinine around 1.5 mg deciliter last year, type 2 diabetes, hyperlipidemia, AICD in place, hypertension, COPD. Patient was admitted recently to [facility] for septic shock from cellulitis. Patient was stabilized and discharged to [facility] withamikacin and 2 other antibiotics. Lab at [facility] revealed SHIRA, hyperkalemia and hyponatremia and patient was sent to [facility]. Lab work this morning revealed potassium 5.3 mg deciliter, BUN 105, serum bicarb 15,potassium 6.1, sodium 123, hemoglobin 9.9 g deciliter, white cell count 18.8. Chest x-ray at admission revealed left basilar infiltrate with possible effusion. Lab also revealed high BNP at 1600. Renal team is consulted for acute kidney injury. Patient has been anuric since admission. Currently on 2 Lnasal cannula. I reviewed the current inpatient medications. Currently on ceftriaxone 1 g every 24 hours, linezolid 600 mg every 12 hours. Patient also was given 2 dosesof Lokelma for hyperkalemia. Patient is currently on 100 cc/h normal saline. There has been no NSAID use. No IV contrast exposure. Interval history Patient was seen and examined while on hemodialysis. Hemodialysis was started January 28 for severe SHIRA, hyperkalemia and hyponatremia along with oliguria. Second hemodialysis session is arranged for today and patient was seen during hemodialysis. Hemodialysis access is right femoral temporary hemodialysis catheter. Patient stated he is making a little of urine. Serum sodium level corrected to 128 mmol/L and potassium to 4.2 mmol/L with yesterday hemodialysis session Continues to be on Zyvox and ceftriaxone for lower extremity infected wound Denied worsening breathing. No chest pain. No nausea no vomiting. Patient hasbeen eating well Exam Physical Exam Vital Signs: Temp Pulse Resp BP Pulse Ox O2 Del Method O2 Flow Rate 98.4 F 73 18 137/70 100 Nasal Cannula 2 01/30/24 08:00 01/30/24 08:00 01/30/24 08:00 01/30/24 08:00 01/30/24 08:00 01/30/24 08:00 01/30/24 08:00 Narrative: General: No acute distress Head :atraumatic normocephalic Eyes: PERRLA. Neck: no JVD no bruit. Heart: S1-S2. RRR Respiratory: Clear to auscultation. No wheezing. No crackles Abdomen: Soft, positive bowel sounds,no tenderness. Neurology: Awake alert oriented x3. No focal deficits Extremity. No cyanosis. Both feet are wrapped. Patient has +1 edema of lower extremity Skin: No skin rash Objective Intake and Output I&O: Intake & Output 01/27/24 01/28/24 01/29/24 01/30/24 23:59 23:59 23:59 23:59 Intake Total 50 / 50 2820 / 2820 250 / 250 Output Total 1501 / 1501 Balance 50 / 50 1319 / 1319 250 / 250 Weight 213 lb 2.992 oz 206 lb 2.115 oz 208 lb 12.444 oz Meds and Allergies Meds: Active Medications Hydrocodone Bitart/Acetaminophen (Hydrocodone/Acetaminophen 5-325 Mg Tablet) 1 tab PO TID PRN PRN Reason: Pain Last Admin: 01/30/24 10:55 Dose: 1 tab Albuterol (Albuterol Neb 2.5 Mg/3 Ml Vial.Neb) 2.5 mg INHALATION Q4H PRN PRN Reason: breathing Stop: 01/27/25 21:48 Atorvastatin Calcium (Atorvastatin 80 Mg Tablet) 80 mg PO DAILY RACHANA Stop: 01/28/25 08:59 Last Admin: 01/30/24 09:02 Dose: 80 mg Carvedilol (Carvedilol 12.5 Mg Tablet) 12.5 mg PO BID RACHANA Stop: 01/28/25 08:59 Last Admin: 01/30/24 09:02 Dose: 12.5 mg Heparin Sodium (Porcine) (Heparin 5,000 Unit/Ml Vial) 5,000 unit SUBCUT Q8HR RACHANA Stop: 01/27/25 21:59 Last Admin: 01/30/24 07:31 Dose: Not Given Heparin Sodium (Porcine) (Heparin 10,000 Unit/10 Ml Vial) 2,600 unit IV PRN PRN PRN Reason: Dialysis Stop: 01/28/25 14:06 Last Admin: 01/29/24 15:13 Dose: 2,600 unit Hydralazine HCl (Hydralazine 50 Mg Tablet) 50 mg PO TID RACHANA Stop: 01/27/25 21:59 Last Admin: 01/30/24 09:02 Dose: 50 mg Ceftriaxone Sodium (Rocephin) 1 gm in 50 mls @ 100 mls/hr IV Q24H [facility] Last Admin: 01/29/24 21:13 Dose: 100 mls/hr Linezolid (Zyvox) 600 mg in 300 mls @ 300 mls/hr IV Q12H [facility] Last Admin: 01/30/24 10:50 Dose: 300 mls/hr Sodium Chloride (0.9% Sodium Chloride 1,000 Ml) 1,000 mls @ 0 mls/hr MISCELLANE.Q0M PRN PRN Reason: Dialysis Stop: 01/28/25 14:06 Last Infusion: 01/29/24 15:14 Dose: Infused Sodium Chloride (0.9% Sodium Chloride 1,000 Ml) 1,000 mls @ 0 mls/hr MISCELLANE.Q0M PRN PRN Reason: Dialysis Stop: 01/29/25 08:35 Insulin Aspart (Insulin Aspart 300 Units/3 Ml Insuln.Pen) 0 units SUBCUT TID.WM.HS [facility]; Protocol Stop: 01/27/25 22:44 Last Admin: 01/30/24 12:52 Dose: 8 units Isosorbide Dinitrate (Isosorbide Dinitrate 20 Mg Tablet) 20 mg PO BID [facility] Stop: 01/28/25 08:59 Last Admin: 01/30/24 09:02 Dose: 20 mg Levothyroxine Sodium (Levothyroxine 50 Mcg Tablet) 50 mcg PO DAILY@0630 [facility] Stop: 01/29/25 06:29 Last Admin: 01/30/24 07:31 Dose: 50 mcg Loperamide HCl (Loperamide 2 Mg Capsule) 2 mg PO Q2H PRN PRN Reason: Diarrhea Stop: 01/29/25 10:31 Last Admin: 01/30/24 12:52 Dose: 2 mg Nitroglycerin (Nitroglycerin 0.4 Mg Tab.Subl) 0.4 mg SUBLINGUAL Q5MIN.X3 PRN PRN Reason: Chest Pain Stop: 01/27/25 21:43 Nystatin (Nystatin 100,000 Unit/Gram Powder 15 Gm Bottle) 1 applic TOPICAL QID [facility] Stop: 01/29/25 08:59 Last Admin: 01/30/24 09:03 Dose: 1 applic Sodium Chloride (Sodium Chloride 0.9 % 10 Ml Syringe) 0 ml IV-PUSH PRN PRN PRN Reason: Flush Stop: 01/28/25 14:06 Last Admin: 01/29/24 15:13 Dose: 40 ml Sodium Chloride (Sodium Chloride 0.9 % 10 Ml Syringe) 0 ml IV-PUSH PRN PRN PRN Reason: Flush Stop: 01/29/25 08:35 Zinc Oxide (Zinc Oxide 20% Ointment 56 Gm Tube) 1 applic TOPICAL PRN PRN PRN Reason: Skin Irritation Stop: 01/28/25 00:30 Last Admin: 01/29/24 05:00 Dose: 1 applic Allergies LUPIS Inhibitors Allergy (Unknown, Verified 01/08/24 05:36) Cough Results - Nephrology Labs 01/30/24 05:25 01/30/24 05:25 Labs: 01/29/24 01/30/24 20:30 05:25 BUN 73 H D Creatinine 4.57 H D Urine Color Dark yellow A Urine Appearance Cloudy A Urine pH 5.0 Ur Specific Rimrock 1.019 Urine Protein 100 H Urine Glucose (UA) 500 H Urine Ketones Trace H Urine Occult Blood 3+ H Urine Nitrite Negative Ur Leukocyte Esterase 3+ H Urine RBC 20-49 H Urine WBC 5-9 H Urine Bacteria Rare H Radiology Impressions Impressions - last 24 hours: Any impression(s) listed above is documentation that was entered by the reading physician into a diagnostic report(s) for Adwoa Porter. I have reviewed the report(s) and am incorporating any findings in the treatment plan of this patient where applicable. A&P - Nephrology Assessment/Plan (1) SHIRA (acute kidney injury): Plan: Acute kidney injury is likely amikacin induced ATN. Baseline creatinine around 1.4 mg deciliter. Patient likely has CKD from cardiorenal syndrome. Serum creatinine up to 5.3 mg/dL. Patient has been anuric since admission along with hyperkalemia, metabolic acidosis and hyponatremia (2) Hyponatremia: Plan: This is likely related to SHIRA and fluid overload. Serum sodium level today 123 mmol/L. Patient has been on normal saline 100 cc/h since admission (3) Hyperkalemia: Plan: This is likely related to amikacin effect and SHIRA along with metabolic acidosis. Patient was given 2 doses of Lokelma yesterday but potassium level is higher today at 6.1 (4) Metabolic acidosis: Plan: This is likely related to SHIRA. Serum bicarb level today 15. Patient has been anuric (5) Cellulitis of lower leg: Plan: Patient was admitted to [facility] recently with septic shock from cellulitis. Patient was discharged to SNF with amikacin, ceftriaxone and Zyvox. Currently amikacin and hold due to SHIRA. ID is following Plan * No recovery of kidney function. Second hemodialysis chair is arranged for today with a blood flow rate 350, dialysate flow rate 500, ultrafiltration 2 Lr * Will plan for third hemodialysis session tomorrow L * Will continue to monitor for kidney function recovery. Please do daily renal function panel along with accurate urine output documentation * Will consult vascular surgery team for tunneled hemodialysis catheter placement * I will stop IV fluid due to fluid overload and low ejection fraction * Avoid aminoglycosides completely. ID is following for antibiotics. * Check CBC and renal function panel in a.m. prior to hemodialysis to adjust order as needed Renal team will continue to follow. Call if any question or concern. Documented By: Lia Law MD 01/30/24 1426 Signed By: <Electronically signed by Lia Law MD> 01/30/24 1430 [facility] Work Phone: 1(341) 109-438803-13-2024 Progress note Author Valentin Valle [facility] January 30, 2024 11:44am Note Date/Time January 30, 2024 11: 44am [facility] [address] [place] [address] Podiatry Progress Note Signed Patient: Adwoa Porter MR#: [id number] : 1955 Acct:[id number] Age/Sex: 68 / M Adm Date: 4 Loc: Room: [address] [place] [address] Type: ADM IN Attending Dr: Farhan Hudson DO Copies to: ~ Subjective Subjective Date of Service: Date of Service: 01/30/2024 Time of Service: 11:36 Narrative: Mr. Porter is a 68 year old male who is seen resting comfortably in bed. Patient denies any history of nausea, vomiting, fever or chills. Patient's daughter was at bedside today. Patient's daughter says that his last appointment when they evaluated the wound did appear to be worsening. Patient states that he has a history of smoking and he quit about 13 years ago. Patientdenies any history of vascular intervention in the past. Exam Physical Exam Vital Signs: Temp Pulse Resp BP Pulse Ox O2 Del Method O2 Flow Rate 98.4 F 73 18 137/70 100 Nasal Cannula 2 01/30/24 08:00 01/30/24 08:00 01/30/24 08:00 01/30/24 08:00 01/30/24 08:00 01/30/24 08:00 01/30/24 08:00 Extrem Other: Vascular: DP and PT pulse nonpalpable left foot Dermatologic: The surgical wound measurements have not changed since yesterday measures 6 cm in length by 8 cm in width by 1.7 cm in depth. There is about 70%of the wound bed appears to eschar with gangrene and about 30% of pain granular tissue. There is a minimal amount of drainage noted on the bandage. There is no evidence of localized erythema, edema, odor, or temperature change noted to the left foot or leg.. 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 Patient's right CHARO was 1.4 and his left was 1.8. Code(s): E11.52 - Type 2 diabetes mellitus with diabetic peripheral angiopathy with gangrene (2) Surgical wound, non healing: Plan: The culture that was taken yesterday at bedside is still pending. Patient's white blood cell count is down from admission to 13.6. Patient's antibiotic therapy is currently being managed by Dr. Schofield and he is currently taking linezolid and ceftriaxone. I explained to the patient that vascular once they had time to evaluate his case and the studies that have been done they will discuss with him any options for intervention. I also explained to the patient that if the patient needs further debridement or a more proximal foot amputationI do not feel comfortable doing that. If the patient ends up being revascularized he would need to follow-up with Dr. Arroyo and Dr. Reyes for furtherwound care or surgical intervention. I explained to the patient that when he gets discharged they will need to make an appointment with Dr. Arroyo. I donot feel comfortable doing a more proximal foot amputation as I was not trained in anything beyond an transmetatarsal amputation. If patient requires a more proximal foot amputation he may need to be seen and treated by Dr. Arroyo and Dr. Souza in order to do this procedure. The patient's daughter was able to visualize the wound today when I was doing the dressing change. Patient's daughter states that the wound has significantly worsened since she last saw. Itried to explain to the patient that if he has poor circulation the wound will not heal and will continue to worsen which then could lead to wet gangrene, sepsis and if it is not treated appropriately. I explained the need for him to stay off his foot is much as possible. Will continue with current woundcare consisting of applying Adaptic to the wound bed followed by Thera honey brittani gauze dressing daily. Patient's foot at this time is stable. Code(s): T81.89XA - Other complications of procedures, not elsewhere classified, initial encounter (3) Infected wound: Plan: Patient is being seen by infectious disease for antibiotic therapy. Still awaiting cultures pending pending. Code(s): T14.8XXA - Other injury of unspecified body region, initial encounter; L08.9 - Local infection of the skin and subcutaneous tissue, unspecified Plan Plan is previously mentioned under diabetic type II foot with gangrene. Documented By: Valentin Valle DPM 01/30/24 1136 Signed By: <Electronically signed by NELLY Valle> 01/30/24 1144 [facility] Work Phone: 1([phone]) 311-677203-13-2024 Progress note Author Farhan Schofield [facility] January 30, 2024 11:06am Note Date/Time January 30, 2024 11: 06am [facility] [address] [place] [address] Infect. Disease Progress Note Signed Patient: Adwoa Porter MR#: [id number] : 1955 Acct:[id number] Age/Sex: 68 / M Adm Date: 4 Loc: Room: [address] [place] [address] Type: ADM IN Attending Dr: Farhan Hudson DO Copies to: ~ Date of Service: 01/30/2024 Subjective Interval history: Patient only complains of loose stools for which stool for C. difficile was negative so giving him some Imodium. Patient remains on broad-spectrum antibiotic therapy. Exam Physical Exam Vital Signs: Temp Pulse Resp BP Pulse Ox O2 Del Method O2 Flow Rate 98.4 F 73 18 137/70 100 Nasal Cannula 2 01/30/24 08:00 01/30/24 08:00 01/30/24 08:00 01/30/24 08:00 01/30/24 08:00 01/30/24 08:00 01/30/24 08:00 Narrative: Constitutional Exam: no acute distress Head Exam: normocephalic and atraumatic Eye Exam: EOMI and PERRL ENT Exam: mucous membranes moist Neck Exam: supple, no lymphadenopathy Chest Wall Exam: no tenderness Respiratory Exam: no accessory muscle use or no respiratory distress, Lungs clear bilaterally Cardiovascular exam: RR GI/Abdominal Exam: soft, no tenderness, no distention Skin Exam: Bilateral foot dressings clean dry and intact Neurological Exam: no focal deficits, alert and oriented X3 Objective Labs CBC/BMP: CBC, BMP 01/30/24 05:25 Corrected WBC 13.6 H Uncorrected WBC Count 13.6 H RBC 3.32 L Hgb 8.8 L Hct 26.3 L Plt Count 279 Sodium 128 L Potassium 4.2 D Chloride 95 L Carbon Dioxide 21.9 Anion Gap 15.3 H BUN 73 H D Creatinine 4.57 H D Calcium 7.1 L Labs: 01/30/24 05:25 BUN 73 H D Creatinine 4.57 H D Microbiology Microbiology: Microbiology - Results from entire visit 01/29/24 09:50 Foot,Left - Drainage Superficial Wound Culture - Preliminary Light Normal Skin Cedric 1 Day 01/29/24 20:30 Urine - Voided Urine Culture - Preliminary Allergies and Medications Allergies and Active Meds Allergies LUPIS Inhibitors Allergy (Unknown, Verified 01/08/24 05:36) Cough Active Medications Hydrocodone Bitart/Acetaminophen (Hydrocodone/Acetaminophen 5-325 Mg Tablet) 1 tab PO TID PRN PRN Reason: Pain Last Admin: 01/30/24 10:55 Dose: 1 tab Albuterol (Albuterol Neb 2.5 Mg/3 Ml Vial.Neb) 2.5 mg INHALATION Q4H PRN PRN Reason: breathing Stop: 01/27/25 21:48 Atorvastatin Calcium (Atorvastatin 80 Mg Tablet) 80 mg PO DAILY RACHANA Stop: 01/28/25 08:59 Last Admin: 01/30/24 09:02 Dose: 80 mg Carvedilol (Carvedilol 12.5 Mg Tablet) 12.5 mg PO BID RACHANA Stop: 01/28/25 08:59 Last Admin: 01/30/24 09:02 Dose: 12.5 mg Heparin Sodium (Porcine) (Heparin 5,000 Unit/Ml Vial) 5,000 unit SUBCUT Q8HR RACHANA Stop: 01/27/25 21:59 Last Admin: 01/30/24 07:31 Dose: Not Given Heparin Sodium (Porcine) (Heparin 10,000 Unit/10 Ml Vial) 2,600 unit IV PRN PRN PRN Reason: Dialysis Stop: 01/28/25 14:06 Last Admin: 01/29/24 15:13 Dose: 2,600 unit Hydralazine HCl (Hydralazine 50 Mg Tablet) 50 mg PO TID [facility] Stop: 01/27/25 21:59 Last Admin: 01/30/24 09:02 Dose: 50 mg Ceftriaxone Sodium (Rocephin) 1 gm in 50 mls @ 100 mls/hr IV Q24H [facility] Last Admin: 01/29/24 21:13 Dose: 100 mls/hr Linezolid (Zyvox) 600 mg in 300 mls @ 300 mls/hr IV Q12H [facility] Last Admin: 01/30/24 10:50 Dose: 300 mls/hr Sodium Chloride (0.9% Sodium Chloride 1,000 Ml) 1,000 mls @ 0 mls/hr MISCELLANE.Q0M PRN PRN Reason: Dialysis Stop: 01/28/25 14:06 Last Infusion: 01/29/24 15:14 Dose: Infused Sodium Chloride (0.9% Sodium Chloride 1,000 Ml) 1,000 mls @ 0 mls/hr MISCELLANE.Q0M PRN PRN Reason: Dialysis Stop: 01/29/25 08:35 Insulin Aspart (Insulin Aspart 300 Units/3 Ml Insuln.Pen) 0 units SUBCUT TID.[facility]; Protocol Stop: 01/27/25 22:44 Last Admin: 01/30/24 09:02 Dose: 3 units Isosorbide Dinitrate (Isosorbide Dinitrate 20 Mg Tablet) 20 mg PO BID [facility] Stop: 01/28/25 08:59 Last Admin: 01/30/24 09:02 Dose: 20 mg Levothyroxine Sodium (Levothyroxine 50 Mcg Tablet) 50 mcg PO DAILY@0630 [facility] Stop: 01/29/25 06:29 Last Admin: 01/30/24 07:31 Dose: 50 mcg Loperamide HCl (Loperamide 2 Mg Capsule) 2 mg PO Q2H PRN PRN Reason: Diarrhea Stop: 01/29/25 10:31 Last Admin: 01/30/24 10:56 Dose: 2 mg Nitroglycerin (Nitroglycerin 0.4 Mg Tab.Subl) 0.4 mg SUBLINGUAL Q5MIN.X3 PRN PRN Reason: Chest Pain Stop: 01/27/25 21:43 Nystatin (Nystatin 100,000 Unit/Gram Powder 15 Gm Bottle) 1 applic TOPICAL QID [facility] Stop: 01/29/25 08:59 Last Admin: 01/30/24 09:03 Dose: 1 applic Sodium Chloride (Sodium Chloride 0.9 % 10 Ml Syringe) 0 ml IV-PUSH PRN PRN PRN Reason: Flush Stop: 01/28/25 14:06 Last Admin: 01/29/24 15:13 Dose: 40 ml Sodium Chloride (Sodium Chloride 0.9 % 10 Ml Syringe) 0 ml IV-PUSH PRN PRN PRN Reason: Flush Stop: 01/29/25 08:35 Zinc Oxide (Zinc Oxide 20% Ointment 56 Gm Tube) 1 applic TOPICAL PRN PRN PRN Reason: Skin Irritation Stop: 01/28/25 00:30 Last Admin: 01/29/24 05:00 Dose: 1 applic A&P - Infectious Disease Assessment/Plan (1) Chronic ulcer of left foot with necrosis of muscle: (2) Infected wound: (3) Leukocytosis: (4) Acute kidney injury superimposed on CKD: (5) Diabetes: Plan Patient's creatinine remains elevated but has improved since yesterday. Patientremains on linezolid and ceftriaxone. Vascular has been consulted. PVRs have been ordered. Given necrotic changes of his foot concern for ongoing arterial disease is high. Will await vascular's review of PVRs and potential further plans of intervention. Continue to keep the foot clean with appropriate dressing changes. His white count is down to 13.6 today. He does remain afebrile. Linezolid and ceftriaxone for now Documented By: Farhan Schofield MD 01/30/24 110 Signed By: <Electronically signed by MD Farhan Schofield> 01/30/24 7792 [facility] Work Phone: 1(122) 806-568203-13-2024 Progress note Author Farhan Hudson [facility] January 29, 2024 11:06pm Note Date/Time January 29, 2024 11: 06pm [facility] [address] [place] [address] Hospitalist Progress Note Signed Patient: Adwoa Porter MR#: [id number] : 1955 Acct:[id number] Age/Sex: 68 / M Adm Date: 4 Loc: Room: [address] [place] [address] Type: ADM IN Attending Dr: Farhan Hudson DO Copies to: ~ Date of Service: 01/29/2024 Subjective Subjective Narrative: Patient with movement at the bedside this evening. Underwent hemodialysis catheter placement on initiation of HD today. His primary complaint presently is the erythematous pain in his scrotum and swelling. Physical Examination: GENERAL APPEARANCE: Alert, up in bed AAOx3 HEENT: NCAT, mildly dry mucous membrane CARDIAC: Normal S1 and S2. Somewhat distant heart sounds, possible systolic murmur at the left heart border noted LUNGS: Clear to auscultation bilaterally. no wheeze/rhonchi/rales ABDOMEN: Protuberant, somewhat obese but nontender abdomen EXTREMITIES: Some chronic venous stasis changes bilaterally, his left lower extremity has dressing in place to the left foot and significant pitting edema up through the knee. Wound VAC present NEUROLOGICAL: No focal deficits PSYCHIATRIC: Appropriate mood and affect Assessment and plan: 1. Acute kidney injury on chronic kidney disease stage III 2. Chronic systolic congestive heart failure with reduced ejection fraction - status post pacer ICD 3. Paroxysmal atrial fibrillation 4. COPD 5. Insulin-dependent diabetes mellitus type 2 6. Hypothyroidism 7. Hyperlipidemia 8 Essential hypertension 9. Anemia of chronic kidney disease 10. Paraproteinemia Appreciate nephrology, infectious disease, podiatry recommendations. Hemodynamically has been fairly stable throughout this process including for initiation of HD. Rocephin and linezolid have been continued. Amikacin held. His amikacin level returns at a level of 20 appears to be within the therapeuticrange. While elevated could still cause toxicity. Certainly cardiorenal syndrome with low EF could be contributing. His heart failure clinically however does not seem exacerbated with stable respiratory status.-Given breathing treatment and continued for COPD as needed. She has a previously noted high insulin requirement with large amounts of total daily insulin but presently is under relatively good control with a sliding scale. This will be continued for now. Adjust accordingly. Check A1c. Continue 50 mcg of levothyroxine daily. Renally metabolized meds have been adjusted and/or held. Gradual resumption of heart failure regimen as blood pressure tolerates with dialysis. Low albumin with relatively high total protein. Will check this again on a.m. labs. If truly still significant abnormality will send SPEP. Exam Physical Exam Vital Signs: Temp Pulse Resp BP Pulse Ox O2 Del Method O2 Flow Rate 97.4 F L 88 20 117/68 97 Nasal Cannula 2 01/29/24 20:00 01/29/24 20:00 01/29/24 20:00 01/29/24 20:00 01/29/24 20:00 01/29/24 20:00 01/29/24 20:00 Objective Lab Results 01/29/24 05:39 01/29/24 05:39 Meds Allergies and Active Meds Allergies LUPIS Inhibitors Allergy (Unknown, Verified 01/08/24 05:36) Cough Active Meds: Active Medications Generic Name Dose Route Start Last Admin Trade Name Freq PRN Reason Stop Dose Admin Hydrocodone Bitart/Acetaminophen 1 tab 01/28/24 21:44 01/29/24 20:50 Hydrocodone/Acetaminophen 5-325 Mg Tablet PO 1 tab TID PRN Administration Pain Albuterol 2.5 mg 01/28/24 21:49 Albuterol Neb 2.5 Mg/3 Ml Vial.Neb INHALATION 01/27/25 21:48 Q4H PRN breathing Atorvastatin Calcium 80 mg 01/29/24 09:00 01/29/24 09:03 Atorvastatin 80 Mg Tablet PO 01/28/25 08:59 80 mg DAILY RACHANA Administration Carvedilol 12.5 mg 01/29/24 09:00 01/29/24 21:14 Carvedilol 12.5 Mg Tablet PO 01/28/25 08:59 12.5 mg BID RACHANA Administration Heparin Sodium (Porcine) 5,000 unit 01/28/24 22:00 01/29/24 21:14 Heparin 5,000 Unit/Ml Vial SUBCUT 01/27/25 21:59 Not Given Q8HR RACHANA Heparin Sodium (Porcine) 2,600 unit 01/29/24 14:07 01/29/24 15:13 Heparin 10,000 Unit/10 Ml Vial IV 01/28/25 14:06 2,600 unit PRN PRN Administration Dialysis Hydralazine HCl 50 mg 01/28/24 22:00 01/29/24 21:14 Hydralazine 50 Mg Tablet PO 01/27/25 21:59 50 mg TID RACHANA Administration Ceftriaxone Sodium 1 gm in 50 mls @ 100 mls/hr 01/28/24 21:30 01/29/24 21:13 Rocephin IV 100 mls/hr Q24H RACHANA Administration Linezolid 600 mg in 300 mls @ 300 mls/hr 01/28/24 22:30 01/29/24 21:52 Zyvox IV 300 mls/hr Q12H RACHANA Administration Sodium Chloride 1,000 mls @ 0 mls/hr 01/29/24 14:07 01/29/24 15:14 0.9% Sodium Chloride 1,000 Ml MISCELLANE 01/28/25 14:06 Infused .Q0M PRN Infusion Dialysis As Directed Insulin Aspart 0 units 01/28/24 22:45 01/29/24 21:26 Insulin Aspart 300 Units/3 Ml Insuln.Pen SUBCUT 01/27/25 22:44 8 units TID.WM.HS RACHANA Administration Protocol Isosorbide Dinitrate 20 mg 01/29/24 09:00 01/29/24 21:14 Isosorbide Dinitrate 20 Mg Tablet PO 01/28/25 08:59 20 mg BID RACHANA Administration Levothyroxine Sodium 50 mcg 01/30/24 06:30 Levothyroxine 50 Mcg Tablet PO 01/29/25 06:29 DAILY@0630 RACHANA Nitroglycerin 0.4 mg 01/28/24 21:44 Nitroglycerin 0.4 Mg Tab.Subl SUBLINGUAL 01/27/25 21:43 Q5MIN.X3 PRN Chest Pain Nystatin 1 applic 01/30/24 09:00 Nystatin 100,000 Unit/Gram Powder 15 Gm Bottle TOPICAL 01/29/25 08:59 QID RACHANA Sodium Chloride 0 ml 01/29/24 14:07 01/29/24 15:13 Sodium Chloride 0.9 % 10 Ml Syringe IV-PUSH 01/28/25 14:06 40 ml PRN PRN Administration Flush Zinc Oxide 1 applic 01/29/24 00:31 01/29/24 05:00 Zinc Oxide 20% Ointment 56 Gm Tube TOPICAL 01/28/25 00:30 1 applic PRN PRN Administration Skin Irritation A&P - Hospitalist Assessment/Plan (1) Acute kidney injury superimposed on CKD: Plan as above Documented By: Farhan Hudson DO 01/29/2411 12 Signed By: <Electronically signed by Farhan Hudson DO> 01/29/24 1616 [facility] Work Phone: [phone] 187-144603-12-2024 Consult note Author Valentin Valle [facility] January 29, 2024 7:19pm Note Date/Time January 29, 2024 6:1 0pm [facility] [address] [place] [address] Podiatry Consult Note Signed with Ramona Patient: Adwoa Porter MR#: [id number] : 1955 Acct:[id number] Age/Sex: 68 / M Adm Date: 4 Loc: Room: [address] [place] [address] Type: ADM IN Attending Dr: Farhan Hudson DO Copies to: NELLY Fuchs DO Thomas R Conley, DO~ ADDENDUM1 Assesment/plan: I spent a total of 53 minutes in the evaluation and treatment of this patient. Addendum Documented By: NELLY Valle 01/29/241918 Addendum Signed By: <Electronically signed by NELLY Valle> 01/29/241918 HPI Data of Consult Consult Date: 01/29/24 Requesting Physician: Farhan Hudson DO Primary Care Provider: Vinnie Stewart DO Consult Narrative History of present illness: Mr. Porter is a 68 year old male who is seen resting comfortably in bed. Patient was transferred here from [facility] due to severe kidney diseaserequiring hemodialysis. Patient currently denies any history of nausea, vomiting, fever or chills. Patient was recently hospitalized for septic shock apparently 2 weeks ago at [facility]. Patient was seen by Dr. Arroyoand his fellows there for an abscess foot. They had done a wide I&D done to treat the abscess to foot. Patient was then sent to [facility] with orders for a wound VAC. Patient was seen by Dr. Arroyo about 2 weeks ago and was told that everything looked good. Patient again was sent to [facility] for his kidney disease and upon evaluation they noticed that he had necrotic wounds on his left foot where the surgery had taken place. Patient states that he has a history of smoking and he quit about 13 years ago. Patient denies any history of vascular intervention in the past. 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 Congestive heart failure On home O2 3L Amputated toe of left foot Appendicitis Diabetes mellitus Hypercholesteremia Numbness and tingling of both feet Numbness and tingling in both hands Cardiac defibrillator in place HTN (hypertension) COPD (chronic obstructive pulmonary disease) Surgical History History of cataract extraction bilateral History of appendectomy H/O cardiac catheterization Family History (Updated 11/22/23 @ 15:40 by Provider Conversion) Brother Legacy FamHx Relation: Brother(s) Cancer Legacy FamHx Relation: Brother(s); Legacy FamHx Problem: Diagnosed with Cancer Father Mother Diabetes Hypertension Heart disease Other CAD (coronary artery disease) Social History Smoking Status: Former smoker Tobacco Type: cigarettes Substance Use Type: Former User and Alcohol Social History Comments: lives in a trailor - with Promise (friend) Meds Medications and Allergies Allergies LUPIS Inhibitors Allergy (Unknown, Verified 01/08/24 05:36) Cough Home Medications albuterol sulfate 2.5 mg/3 mL (0.083 %) solution for nebulization 2.5 mg inhalation Q4H PRN breathing 04/10/22 [History Confirmed 01/29/24] albuterol sulfate 90 mcg/actuation aerosol inhaler 2 puff inhalation Q4H PRN breathing 04/10/22 [History Confirmed 01/29/24] amitriptyline 25 mg tablet 25 mg PO QHS 04/10/22 [History Confirmed 01/28/24] aspirin 81 mg tablet,delayed release 81 mg PO DAILY 04/10/22 [History Confirmed 01/28/24] atorvastatin 80 mg tablet 80 mg PO DAILY 04/10/22 [History Confirmed 01/28/24] budesonide-formoterol HFA 160 mcg-4.5 mcg/actuation aerosol inhaler (Symbicort) 2 puff inhalation BID 04/10/22 [History Confirmed 02/13/23] bumetanide 1 mg tablet 2 mg PO BID 04/10/22 [History Confirmed 01/28/24] carvedilol 25 mg tablet 25 mg PO BID 04/10/22 [History Confirmed 01/28/24] cholecalciferol (vitamin D3) 50 mcg (2,000 unit) tablet (Vitamin D3) 50 mcg PO DAILY 04/10/22 [History Confirmed 01/29/24] digoxin 125 mcg (0.125 mg) tablet 125 mcg PO DAILY 04/10/22 [History Confirmed 01/28/24] dulaglutide 4.5 mg/0.5 mL subcutaneous pen injector (Trulicity) See Rx Instructions .Route .COMPLEX 04/10/22 [History Confirmed 12/04/22] gabapentin 400 mg capsule 400 mg PO BID 04/10/22 [History Confirmed 01/28/24] hydralazine 50 mg tablet 50 mg PO TID 04/10/22 [History Confirmed 01/28/24] hydrocodone 5 mg-acetaminophen 325 mg tablet 1 tab PO TID PRN Pain 04/10/22 [History Confirmed 01/29/24] insulin glargine 100 unit/mL (3 mL) subcutaneous pen (Basaglar KwikPen U-100 Insulin) 63 unit subcut BID 04/10/22 [History Confirmed 02/13/23] insulin lispro 200 unit/mL (3 mL) subcutaneous pen (Humalog KwikPen U-200 Insulin) See Rx Instructions .Route .COMPLEX 04/10/22 [History Confirmed 02/13/23] isosorbide dinitrate 20 mg tablet 20 mg PO BID 04/10/22 [History Confirmed 01/28/24] nitroglycerin 0.4 mg sublingual tablet (Nitrostat) 0.4 mg sublingual DIRECTEDPRN Chest Pain 04/10/22 [History Confirmed 01/29/24] spironolactone 25 mg tablet 25 mg PO DAILY 04/10/22 [History Confirmed 01/28/24] warfarin 5 mg tablet 5 mg PO DIRECTED 04/10/22 [History Confirmed 01/29/24] cyanocobalamin (vitamin B-12) 1,000 mcg tablet (Vitamin B-12) 1,000 mcg PO DAILY#30 tabs 06/06/22 [Rx Confirmed 01/28/24] ferrous sulfate 325 mg (65 mg iron) tablet 325 mg PO DAILY #30 tabs 06/06/22 [Rx Confirmed 01/29/24] dapagliflozin propanediol 10 mg tablet (Farxiga) 10 mg PO DAILY 02/13/23 [History Confirmed 02/13/23] furosemide 20 mg tablet 60 mg PO BID 02/13/23 [History Confirmed 01/29/24] metolazone 2.5 mg tablet 2.5 mg PO QWEEK 02/13/23 [History Confirmed 01/28/24] potassium chloride 10 mEq tablet,extended release (Klor-Con) 20 meq (2 x 10 mEq)PO DAILY #14 tabs 02/14/23 [Rx Confirmed 01/29/24] amikacin 500 mg/2 mL injection solution 250 mg IM Q12HR 01/29/24 [History Confirmed 01/29/24] ceftriaxone 1 gram intravenous solution 1 g IV DAILY 01/29/24 [History Confirmed 01/29/24] levothyroxine 50 mcg tablet 50 mcg PO DAILY 01/29/24 [History Confirmed 01/29/24] linezolid in 5% dextrose in water 600 mg/300 mL intravenous piggyback 600 mg IV Q12HR 01/29/24 [History Confirmed 01/29/24] warfarin 2.5 mg tablet 2.5 mg PO QPM 01/29/24 [History Confirmed 01/29/24] Exam Physical Exam Vital Signs: Temp Pulse Resp BP Pulse Ox O2 Del Method O2 Flow Rate 97.4 F L 86 18 127/73 99 Nasal Cannula 2 01/29/24 16:11 01/29/24 16:11 01/29/24 16:11 01/29/24 16:11 01/29/24 16:11 01/29/24 16:11 01/29/24 16:11 Extrem Other: DP and PT pulses were nonpalpable left foot. Utilizing a Doppler was able to hear a DP and PT pulse left foot. There is absent hair growth noted to the leftfoot. And the skin does appear thin, shiny, and atrophic. Dermatologic: There is a postsurgical wound measuring 6 cm in length by 8 cm in width by 1.7 cm in depth. There is no evidence of erythema, edema, odor, or temperature change noted at this time. There is serosanguineous drainage noted on the bandage moderate. 40% of the dorsal wound appears pink and granular however the plantar 60% of surgical wound is black with eschar noted. There is an area on the posterior heel that appears to have some eschar as well as the second left toe. Neurologic: Patient is unable to feel the 5.0 7 monofilament wire when tested toplantar aspect of his feet. Orthopedic: Patient had had a amputation of the left great toe. 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 Arroyo the web site admin who did the an I&D of the left foot however he was out of town at a conference. I did speak with his fellow that he is training, Dr. Herminio Souza ([phone]). Dr. Souza mentioned that they had to do an emergent I&D due to an abscess on the left foot. This happened on 01/17/2024. Patient was then discharged to [facility] with orders to begin for a wound VAC. Patient was placed on multiple antibiotic therapy ultimately he then was placed on amikacin. Due to abnormal lab work patient was sent to [facility] and then was transferred to [facility] for hemodialysis and kidney disease. Dr. Souza had mentioned that patient does have peripheral arterial disease and has a history of stents in hisle. However, when questioning the patient about his surgical history patient denies any history of any vascular intervention to his legs. Dr. Reyes mentioned that when Dr. Arroyo saw him a few days after surgery and the wound surgical wound looked good. My concern is that has not even been 2 weeks only 12 days and greater than 50% of the surgical wound is now eschar with necrosis. Patient also has an area on his posterior heel and second left digit that is also eschar. It right now he is stable with no active sign of cellulitis. Cultures were already taken of the wound earlier today by the woundcare nurse. These are pending. Infectious disease already saw the patient and is managing his antibiotic therapy. At this time I do not feel comfortable taking him to any kind of surgery due to the fact that how his surgical wound has worsened in such a short period of time. When I spoke to Dr. Souza he had mentioned that if the surgical wound should worsen the plan was to proceed with a more proximal foot amputation or be evaluated for a below the knee amputation. I do not feel comfortable doing a more proximal foot amputation as I was not trained in anything beyond an transmetatarsal amputation. If patient requires octavia proximal foot amputation he may need to be seen and treated by Dr. Arroyo and Dr. Souza in order to do this procedure. I did order a vascular consult to assess his perfusion to the left lower extremity. Will continue withcurrent wound care consisting of applying Adaptic to the wound bed followed by Thera honey and a gauze dressing daily. Patient's foot at this time is stable. Code(s): T81.89XA - Other complications of procedures, not elsewhere classified, initial encounter (3) Infected wound: Plan: Patient is being seen by infectious disease for antibiotic therapy. Still awaiting cultures pending pending. Code(s): T14.8XXA - Other injury of unspecified body region, initial encounter; L08.9 - Local infection of the skin and subcutaneous tissue, unspecified Plan Plan is previously mentioned under diabetic type II foot with gangrene. Documented By: Valentin Valle DPM 01/29/24 1748 Signed By: <Electronically signed by NELLY Valle> 01/29/24 8798 [facility] Work Phone: [phone]) 455-404403-12-2024 Consult note Author Lia Law [facility] January 29, 2024 3:28pm Note Date/Time January 29, 2024 9:5 7am [facility] [address] [place] [address] Nephrology Consult Note Signed Patient: Adwoa Porter MR#: [id number] : 1955 Acct:[id number] Age/Sex: 68 / M Adm Date: 4 Loc: Room: [address] [place] [address] Type: ADM IN Attending Dr: Farhan Hudson DO Copies to: MD Farhan Cortez DO Thomas R Conley, DO~ Providers Consult Date: 01/29/24 Requesting Provider: Farhan Hudson DO Primary Care Provider: Vinnie Stewart DO HPI Reason for Consult: Acute kidney injury with hyperkalemia and hyponatremia History of Present Illness: This is 68-year-old male patient with past medical history of systolic heart failure ejection fraction 10 to 15%, CKD stage III baseline creatinine around 1.5 mg deciliter last year, type 2 diabetes, hyperlipidemia, AICD in place, hypertension, COPD. Patient was admitted recently to [facility] for septic shock from cellulitis. Patient was stabilized and discharged to [facility] withamikacin and 2 other antibiotics. Lab at [facility] revealed SHIRA, hyperkalemia and hyponatremia and patient was sent to [facility]. Lab work this morning revealed potassium 5.3 mg deciliter, BUN 105, serum bicarb 15,potassium 6.1, sodium 123, hemoglobin 9.9 g deciliter, white cell count 18.8. Chest x-ray at admission revealed left basilar infiltrate with possible effusion. Lab also revealed high BNP at 1600. Renal team is consulted for acute kidney injury. Patient has been anuric since admission. Currently on 2 Lnasal cannula. I reviewed the current inpatient medications. Currently on ceftriaxone 1 g every 24 hours, linezolid 600 mg every 12 hours. Patient also was given 2 dosesof Lokelma for hyperkalemia. Patient is currently on 100 cc/h normal saline. There has been no NSAID use. No IV contrast exposure. 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 Congestive heart failure On home O2 3L Amputated toe of left foot Appendicitis Diabetes mellitus Hypercholesteremia Numbness and tingling of both feet Numbness and tingling in both hands Cardiac defibrillator in place HTN (hypertension) COPD (chronic obstructive pulmonary disease) Surgical History History of cataract extraction bilateral History of appendectomy H/O cardiac catheterization Family History (Updated 11/22/23 @ 15:40 by Provider Conversion) Brother Legacy FamHx Relation: Brother(s) Cancer Legacy FamHx Relation: Brother(s); Legacy FamHx Problem: Diagnosed with Cancer Father Mother Diabetes Hypertension Heart disease Other CAD (coronary artery disease) Social History Smoking Status: Former smoker Tobacco Type: cigarettes Substance Use Type: Former User and Alcohol Social History Comments: lives in a trailor - with Promise (friend) Meds Medications & Allergies Allergies LUPIS Inhibitors Allergy (Unknown, Verified 01/08/24 05:36) Cough Home Medications albuterol sulfate 2.5 mg/3 mL (0.083 %) solution for nebulization 2.5 mg inhalation Q4H PRN breathing 04/10/22 [History Confirmed 01/29/24] albuterol sulfate 90 mcg/actuation aerosol inhaler 2 puff inhalation Q4H PRN breathing 04/10/22 [History Confirmed 01/29/24] amitriptyline 25 mg tablet 25 mg PO QHS 04/10/22 [History Confirmed 01/28/24] aspirin 81 mg tablet,delayed release 81 mg PO DAILY 04/10/22 [History Confirmed 01/28/24] atorvastatin 80 mg tablet 80 mg PO DAILY 04/10/22 [History Confirmed 01/28/24] budesonide-formoterol HFA 160 mcg-4.5 mcg/actuation aerosol inhaler (Symbicort) 2 puff inhalation BID 04/10/22 [History Confirmed 02/13/23] bumetanide 1 mg tablet 2 mg PO BID 04/10/22 [History Confirmed 01/28/24] carvedilol 25 mg tablet 25 mg PO BID 04/10/22 [History Confirmed 01/28/24] cholecalciferol (vitamin D3) 50 mcg (2,000 unit) tablet (Vitamin D3) 50 mcg PO DAILY 04/10/22 [History Confirmed 01/29/24] digoxin 125 mcg (0.125 mg) tablet 125 mcg PO DAILY 04/10/22 [History Confirmed 01/28/24] dulaglutide 4.5 mg/0.5 mL subcutaneous pen injector (Trulicity) See Rx Instructions .Route .COMPLEX 04/10/22 [History Confirmed 12/04/22] gabapentin 400 mg capsule 400 mg PO BID 04/10/22 [History Confirmed 01/28/24] hydralazine 50 mg tablet 50 mg PO TID 04/10/22 [History Confirmed 01/28/24] hydrocodone 5 mg-acetaminophen 325 mg tablet 1 tab PO TID PRN Pain 04/10/22 [History Confirmed 01/29/24] insulin glargine 100 unit/mL (3 mL) subcutaneous pen (Basaglar KwikPen U-100 Insulin) 63 unit subcut BID 04/10/22 [History Confirmed 02/13/23] insulin lispro 200 unit/mL (3 mL) subcutaneous pen (Humalog KwikPen U-200 Insulin) See Rx Instructions .Route .COMPLEX 04/10/22 [History Confirmed 02/13/23] isosorbide dinitrate 20 mg tablet 20 mg PO BID 04/10/22 [History Confirmed 01/28/24] nitroglycerin 0.4 mg sublingual tablet (Nitrostat) 0.4 mg sublingual DIRECTEDPRN Chest Pain 04/10/22 [History Confirmed 01/29/24] spironolactone 25 mg tablet 25 mg PO DAILY 04/10/22 [History Confirmed 01/28/24] warfarin 5 mg tablet 5 mg PO DIRECTED 04/10/22 [History Confirmed 01/29/24] cyanocobalamin (vitamin B-12) 1,000 mcg tablet (Vitamin B-12) 1,000 mcg PO DAILY#30 tabs 06/06/22 [Rx Confirmed 01/28/24] ferrous sulfate 325 mg (65 mg iron) tablet 325 mg PO DAILY #30 tabs 06/06/22 [Rx Confirmed 01/29/24] dapagliflozin propanediol 10 mg tablet (Farxiga) 10 mg PO DAILY 02/13/23 [History Confirmed 02/13/23] furosemide 20 mg tablet 60 mg PO BID 02/13/23 [History Confirmed 01/29/24] metolazone 2.5 mg tablet 2.5 mg PO QWEEK 02/13/23 [History Confirmed 01/28/24] potassium chloride 10 mEq tablet,extended release (Klor-Con) 20 meq (2 x 10 mEq)PO DAILY #14 tabs 02/14/23 [Rx Confirmed 01/29/24] amikacin 500 mg/2 mL injection solution 250 mg IM Q12HR 01/29/24 [History Confirmed 01/29/24] ceftriaxone 1 gram intravenous solution 1 g IV DAILY 01/29/24 [History Confirmed 01/29/24] levothyroxine 50 mcg tablet 50 mcg PO DAILY 01/29/24 [History Confirmed 01/29/24] linezolid in 5% dextrose in water 600 mg/300 mL intravenous piggyback 600 mg IV Q12HR 01/29/24 [History Confirmed 01/29/24] warfarin 2.5 mg tablet 2.5 mg PO QPM 01/29/24 [History Confirmed 01/29/24] Active Medications: Active Medications Hydrocodone Bitart/Acetaminophen (Hydrocodone/Acetaminophen 5-325 Mg Tablet) 1 tab PO TID PRN PRN Reason: Pain Last Admin: 01/29/24 00:49 Dose: 1 tab Albuterol (Albuterol Neb 2.5 Mg/3 Ml Vial.Neb) 2.5 mg INHALATION Q4H PRN PRN Reason: breathing Stop: 01/27/25 21:48 Atorvastatin Calcium (Atorvastatin 80 Mg Tablet) 80 mg PO DAILY RACHANA Stop: 01/28/25 08:59 Last Admin: 01/29/24 09:03 Dose: 80 mg Carvedilol (Carvedilol 12.5 Mg Tablet) 12.5 mg PO BID RACHANA Stop: 01/28/25 08:59 Last Admin: 01/29/24 09:03 Dose: 12.5 mg Heparin Sodium (Porcine) (Heparin 5,000 Unit/Ml Vial) 5,000 unit SUBCUT Q8HR RACHANA Stop: 01/27/25 21:59 Last Admin: 01/29/24 06:36 Dose: Not Given Hydralazine HCl (Hydralazine 50 Mg Tablet) 50 mg PO TID RACHANA Stop: 01/27/25 21:59 Last Admin: 01/29/24 09:03 Dose: 50 mg Ceftriaxone Sodium (Rocephin) 1 gm in 50 mls @ 100 mls/hr IV Q24H [facility] Last Admin: 01/28/24 22:57 Dose: 100 mls/hr Linezolid (Zyvox) 600 mg in 300 mls @ 300 mls/hr IV Q12H [facility] Last Admin: 01/28/24 23:39 Dose: 300 mls/hr Sodium Chloride (0.9% Sodium Chloride 1,000 Ml) 1,000 mls @ 100 mls/hr IV .[id number] Stop: 01/27/25 21:44 Last Admin: 01/28/24 23:37 Dose: 100 mls/hr Insulin Aspart (Insulin Aspart 300 Units/3 Ml Insuln.Pen) 0 units SUBCUT TID.WM.HS [facility]; Protocol Stop: 01/27/25 22:44 Last Admin: 01/29/24 09:04 Dose: 4 units Isosorbide Dinitrate (Isosorbide Dinitrate 20 Mg Tablet) 20 mg PO BID [facility] Stop: 01/28/25 08:59 Last Admin: 01/29/24 09:03 Dose: 20 mg Nitroglycerin (Nitroglycerin 0.4 Mg Tab.Subl) 0.4 mg SUBLINGUAL Q5MIN.X3 PRN PRN Reason: Chest Pain Stop: 01/27/25 21:43 Zinc Oxide (Zinc Oxide 20% Ointment 56 Gm Tube) 1 applic TOPICAL PRN PRN PRN Reason: Skin Irritation Stop: 01/28/25 00:30 Last Admin: 01/29/24 05:00 Dose: 1 applic Exam Physical Exam Vital Signs: Temp Pulse Resp BP Pulse Ox O2 Del Method O2 Flow Rate 97.2 F L 86 16 122/84 98 Nasal Cannula 2 01/29/24 07:47 01/29/24 07:47 01/29/24 07:47 01/29/24 07:47 01/29/24 07:47 01/29/24 07:54 01/29/24 07:54 Narrative: General: No acute distress Head :atraumatic normocephalic Eyes: PERRLA. Neck: no JVD no bruit. Heart: S1-S2. RRR Respiratory: Clear to auscultation. No wheezing. No crackles Abdomen: Soft, positive bowel sounds,no tenderness. Neurology: Awake alert oriented x3. No focal deficits Extremity. No cyanosis. Both feet are wrapped. Patient has +1 edema of lower extremity Skin: No skin rash Results - Nephrology Labs 01/29/24 05:39 01/29/24 05:39 Labs: 01/28/24 01/29/24 21:35 05:39 BUN 93 H 105 H Creatinine 5.14 H 5.37 H Albumin 2.6 L Radiology Impressions Impressions - last 24 hours: Any impression(s) listed above is documentation that was entered by the reading physician into a diagnostic report(s) for Adwoa oPrter. I have reviewed the report(s) and am incorporating any findings in the treatment plan of this patient where applicable. A&P - Nephrology Assessment/Plan (1) SHIRA (acute kidney injury): Plan: Acute kidney injury is likely amikacin induced ATN. Baseline creatinine around 1.4 mg deciliter. Patient likely has CKD from cardiorenal syndrome. Serum creatinine up to 5.3 mg/dL. Patient has been anuric since admission along with hyperkalemia, metabolic acidosis and hyponatremia (2) Hyponatremia: Plan: This is likely related to SHIRA and fluid overload. Serum sodium level today 123 mmol/L. Patient has been on normal saline 100 cc/h since admission (3) Hyperkalemia: Plan: This is likely related to amikacin effect and SHIRA along with metabolic acidosis. Patient was given 2 doses of Lokelma yesterday but potassium level is higher today at 6.1 (4) Metabolic acidosis: Plan: This is likely related to SHIRA. Serum bicarb level today 15. Patient has been anuric (5) Cellulitis of lower leg: Plan: Patient was admitted to [facility] recently with septic shock from cellulitis. Patient was discharged to SNF with amikacin, ceftriaxone and Zyvox. Currently amikacin and hold due to SHIRA. ID is following Plan * Patient presented with severe SHIRA along with hyperkalemia and hyponatremia. Patient also has been anuric. Given the fact the patient has severely reduced ejection fraction, resistant hyperkalemia and hyponatremia, hemodialysis was started today * Appreciate Dr. Forrest help in placing temporary hemodialysis catheter * Will plan hemodialysis in today for 3 hours with blood flow rate 250, dialysate flow rate 400, ultrafiltration 1 L * Will continue to monitor for kidney function recovery. Please do daily renal function panel along with accurate urine output documentation * Will evaluate the need of hemodialysis in tomorrow * Serum bicarb, potassium and sodium levels should correct with hemodialysis. Check renal function panel in a.m. * I will stop IV fluid due to fluid overload and low ejection fraction * Avoid aminoglycosides completely. ID is following for antibiotics Thank you for allowing me to participate in Mr. Porter's care. Renal team will continue to follow. Call if any question or concern. Documented By: Lia Law MD 01/29/24 0957 Signed By: <Electronically signed by Lia Law MD> 01/29/24 1529 [facility] Work Phone: 1(731) 903-139203-12-2024 [facility] Consult note Author Ching Loyola [facility] January 29, 2024 10:05am Note Date/Time January 29, 2024 9:4 5am [facility] [address] [place] [address] Infect. Disease Consult Note Signed Patient: Adwoa Porter MR#: [id number] : 1955 Acct:[id number] Age/Sex: 68 / M Adm Date: 4 Loc: Room: [address] [place] [address] Type: ADM IN Attending Dr: Farhan Hudson DO Copies to: Ching Loyola DO, RES DO Farhan Munoz MD Thomas R Conley, DO~ HPI Data of Consult Consult date: 01/29/24 Requesting Physician: Farhan Hudson DO Primary Care Provider: Vinnie Stewart DO Consult Narrative Reason for consult: Cellulitis History of present illness: Mr. Porter is a 68 year old male who was recently discharged from [facility] on January 22 to skilled care facility after treatment for septic shock secondary to cellulitis. He was discharged on amikacin and ceftriazone for polymicrobial growth and confirmed bone culture and was placed on a wound VAC. He was sent to the ED at [facility] by the [facility] care facility after he had abnormal labs with worsening kidney function. Patient is diabetic and has several toe amputations as well as foot wounds bilaterally. Additionally patient has wound on right wrist from a dog scratch and a wound on the left wrist and hand from a burn he obtained when cooking. Wound on right foot expelspus. Initial blood and wound cultures diabetic wounds on recent hospitalization states she had showed polymicrobial growth. When he was initially hospitalizedhe had MSSA was in blood. Enterobacter hormaech, Staph aureus, Enterococcus faecalis and Proteus species were noted from the wound cultures. Several antibiotics were provided throughout his hospital course including initially Levaquin, Zosyn with the Linezolid and eventually amikacin. Patient additionally received Rocephin and linezolid. CC: Farhan Hudson DO Review of Systems Review of Systems Review of systems: A 10 point review of systems was performed and was negative unless noted below or in HPI. 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 Amputation of toe left fifth toe Congestive heart failure On home O2 3L Amputated toe of left foot Appendicitis Diabetes mellitus Hypercholesteremia Numbness and tingling of both feet Numbness and tingling in both hands Cardiac defibrillator in place HTN (hypertension) COPD (chronic obstructive pulmonary disease) Surgical History History of cataract extraction bilateral History of appendectomy H/O cardiac catheterization Family History (Updated 11/22/23 @ 15:40 by Provider Conversion) Brother Legacy FamHx Relation: Brother(s) Cancer Legacy FamHx Relation: Brother(s); Legacy FamHx Problem: Diagnosed with Cancer Father Mother Diabetes Hypertension Heart disease Other CAD (coronary artery disease) Social History Smoking Status: Former smoker Tobacco Type: cigarettes Substance Use Type: Former User and Alcohol Social History Comments: lives in a trailor - with Promise (friend) Allergies and Medications Allergies and Active Meds Allergies LUPIS Inhibitors Allergy (Unknown, Verified 01/08/24 05:36) Cough Active Medications Hydrocodone Bitart/Acetaminophen (Hydrocodone/Acetaminophen 5-325 Mg Tablet) 1 tab PO TID PRN PRN Reason: Pain Last Admin: 01/29/24 00:49 Dose: 1 tab Albuterol (Albuterol Neb 2.5 Mg/3 Ml Vial.Neb) 2.5 mg INHALATION Q4H PRN PRN Reason: breathing Stop: 01/27/25 21:48 Atorvastatin Calcium (Atorvastatin 80 Mg Tablet) 80 mg PO DAILY RACHANA Stop: 01/28/25 08:59 Last Admin: 01/29/24 09:03 Dose: 80 mg Carvedilol (Carvedilol 12.5 Mg Tablet) 12.5 mg PO BID [facility] Stop: 01/28/25 08:59 Last Admin: 01/29/24 09:03 Dose: 12.5 mg Heparin Sodium (Porcine) (Heparin 5,000 Unit/Ml Vial) 5,000 unit SUBCUT Q8HR [facility] Stop: 01/27/25 21:59 Last Admin: 01/29/24 06:36 Dose: Not Given Hydralazine HCl (Hydralazine 50 Mg Tablet) 50 mg PO TID [facility] Stop: 01/27/25 21:59 Last Admin: 01/29/24 09:03 Dose: 50 mg Ceftriaxone Sodium (Rocephin) 1 gm in 50 mls @ 100 mls/hr IV Q24H [facility] Last Admin: 01/28/24 22:57 Dose: 100 mls/hr Linezolid (Zyvox) 600 mg in 300 mls @ 300 mls/hr IV Q12H [facility] Last Admin: 01/28/24 23:39 Dose: 300 mls/hr Sodium Chloride (0.9% Sodium Chloride 1,000 Ml) 1,000 mls @ 100 mls/hr IV .[id number] Stop: 01/27/25 21:44 Last Admin: 01/28/24 23:37 Dose: 100 mls/hr Insulin Aspart (Insulin Aspart 300 Units/3 Ml Insuln.Pen) 0 units SUBCUT TID.WM.HS [facility]; Protocol Stop: 01/27/25 22:44 Last Admin: 01/29/24 09:04 Dose: 4 units Isosorbide Dinitrate (Isosorbide Dinitrate 20 Mg Tablet) 20 mg PO BID [facility] Stop: 01/28/25 08:59 Last Admin: 01/29/24 09:03 Dose: 20 mg Nitroglycerin (Nitroglycerin 0.4 Mg Tab.Subl) 0.4 mg SUBLINGUAL Q5MIN.X3 PRN PRN Reason: Chest Pain Stop: 01/27/25 21:43 Zinc Oxide (Zinc Oxide 20% Ointment 56 Gm Tube) 1 applic TOPICAL PRN PRN PRN Reason: Skin Irritation Stop: 01/28/25 00:30 Last Admin: 01/29/24 05:00 Dose: 1 applic Exam Physical Exam Vital Signs: Temp Pulse Resp BP Pulse Ox O2 Del Method O2 Flow Rate 97.2 F L 86 16 122/84 98 Nasal Cannula 2 03/12/24 07:47 01/29/24 07:47 01/29/24 07:47 01/29/24 07:47 01/29/24 07:47 01/29/24 07:54 01/29/24 07:54 Narrative: Constitutional Exam: no acute distress Head Exam: normocephalic and atraumatic Eye Exam: EOMI and PERRL ENT Exam: mucous membranes moist Neck Exam: supple, no lymphadenopathy Chest Wall Exam: no tenderness Respiratory Exam: no accessory muscle use or no respiratory distress, Lungs clear bilaterally Cardiovascular exam: RR GI/Abdominal Exam: soft, no tenderness, no distention Skin Exam: 4x6 necrotic lesion over left foot with exudate, wounds over right foot, left hand, and right wrist; bone visible Neurological Exam: no focal deficits, alert and oriented X3 Results - Infectious Disease Labs 01/29/24 05:39 01/29/24 05:39 Labs: 01/28/24 21:35: Corrected WBC 20.6 H, Uncorrected WBC Count 20.6 H, BUN 93 H, Creatinine 5.14 H 01/29/24 05:39: Corrected WBC 18.8 H, Uncorrected WBC Count 18.8 H, BUN 105 H, Creatinine 5.37 H A&P - Infectious Disease (1) Chronic ulcer of left foot with necrosis of muscle: (2) Infected wound: (3) Leukocytosis: (4) Acute kidney injury superimposed on CKD: (5) Diabetes: Plan Patient clinically with necrosis of his left foot but previously diagnosed osteomyelitis based on bone culture when at [facility]. It is likely that his acute on chronic kidney injury is stemming from his recent antibiotic use specifically likely the amikacin. Cultures when they were taken were done at [facility] so I do not have these results at this time. I cannot exactly be sure specifically why amikacin was chosen but fingering due to resistance it was one of the few options available. Will reach out to [facility] to get sensitivities faxed up to us. In the meantime he can stay on ceftriaxone and Linezolid. Patient obviously has vascular disease but it is likely that this is not reversible with routine vascular surgery. Dr. Arrooy saw the patient last 2weeks ago according to the patient and according the patient was pleased with his foot wounds. Can consult him here. Patient here for acute on chronic injury and nephrology to see him. Patient has PICC line in right upper extremity that is for his antibiotics. New culture of the foot taken today. I performed a history and physical examination of the patient and discussed his/her management with the resident/student. I reviewed the resident?s/student's note and agree with the documented findings and plan of care. Documented By: Ching Loyola DO, RES 01/29/24 0937 Signed By: <Electronically signed by DO ROSALINDA Loyola> 01/29/24 1005 <Electronically signed by MD Farhan Schofield> 01/29/24 1005 [facility] Work Phone: 1(875) 680-297903-11-2024 History and physical note Author Farhan Hudson [facility] January 28, 2024 9:17pm Note Date/Time January 28, 2024 8:3 0pm [facility] [address] [place] [address] Hospitalist H&P Signed Patient: Adwoa Porter MR#: [id number] : 1955 Acct:[id number] Age/Sex: 68 / M Adm Date: 4 Loc: Room: [address] [place] [address] Type: ADM IN Attending Dr: Farhan Hudson DO Copies to: DO Vinnie Munoz DO~ HPI DATE OF EXAMINATION: 01/28/24 CHIEF COMPLAINT: Abnormal labs HISTORY OF PRESENT ILLNESS: This patient is a 68-year-old male with a history of multiple medical comorbidities including systolic heart failure reported ejection fraction 10 to 15% and CKD stage III. He was recently hospitalized at [facility] and discharged January 22 to a skilled care facility after being treated for septic shock secondary to a cellulitis. He was discharged on IV antibiotic therapy includingamikacin for polymicrobial growth with a wound VAC and PICC line. He was sent to the emergency department today at [facility] for abnormal labs notably worsening kidney function. Charted vital signs there all appear to be fairly stable with systolic blood pressures in the 120s and a normal heart rate in the 80s. Notably he was placed on 2 L nasal cannula for some what appears vinicius mild hypoxia. CBC revealed leukocytosis of 17.3 with a predominance of neutrophils, H&H 9.5/29.6%, MCV relatively microcytic at 83. Platelets 25. HisINR was 1.99. Chemistries revealed hyperkalemia 5.8 sodium of 124 and a BUN/creatinine of 97/4.9H. Glucose 329. LFTs within normal limits. Cardiac markers including troponin normal. Procalcitonin was sent as well and within normal limits at 0.14 albumin markedly low at 1.5, total protein however 7.2. EKG was obtained showing age-indeterminate anterior lateral infarction as well as age indeterminant infarction in the inferior leads. Chest x-ray was obtainedshowing a left basilar infiltrate, possibly effusion. He was subsequently transferred to [facility] for nephrology consultation and further workup of his acute kidney injury. I did request a urinalysis prior to transfer which does not seem to be in his accompanying records. On arrival to the progressive unit the patient is resting comfortably in bed on 2 L nasal cannula but denies any shortness of breath presently. States he has not been peeing very well and really had no new symptoms or problems that brought him to the ER besides his abnormal labs. He feels that he needs his Bumex restarted that was recently discontinued so he make urine. Physical Examination: GENERAL APPEARANCE: Alert, up in bed AAOx3 HEENT: NCAT, mildly dry mucous membrane CARDIAC: Normal S1 and S2. Somewhat distant heart sounds, possible systolic murmur at the left heart border noted LUNGS: Clear to auscultation bilaterally. no wheeze/rhonchi/rales ABDOMEN: Protuberant, somewhat obese but nontender abdomen EXTREMITIES: Some chronic venous stasis changes bilaterally, his left lower extremity has dressing in place to the left foot and significant pitting edema up through the knee. Wound VAC present NEUROLOGICAL: No focal deficits PSYCHIATRIC: Appropriate mood and affect Assessment and plan: 1. Acute kidney injury on chronic kidney disease stage III 2. Chronic systolic congestive heart failure with reduced ejection fraction - status post pacer ICD 3. Paroxysmal atrial fibrillation 4. COPD 5. Insulin-dependent diabetes mellitus type 2 6. Hypothyroidism 7. Hyperlipidemia 8 Essential hypertension 9. Anemia of chronic kidney disease Initial blood and wound cultures for his presenting diabetic wounds on recent hospitalization showed polymicrobial growth. MSSA in blood reportedly. Furthermore Enterobacter hormaech, Staph aureus, Enterococcus faecalis and Proteusspecies were noted from the wound cultures. Different antibiotics were providedthroughout his hospital course including initially Levaquin, Zosyn with the Nasalide and eventually amikacin. Podiatry did take the patient to the OR and these cultures were apparently pending at time of discharge. He received IV fluids during this stay for acute kidney injury and was reportedly back towards his baseline CKD stage III. His Bumex was held as no signs of fluid overload were noted at time of discharge. Labile INR reported throughout stay as well with antibiotic interactions and dosing was decreased on discharge. PICC line was placed and discharge antibiotics included Rocephin, linezolid and IM amikacin. Amikacin levels were to be checked every 72 hours. Patient will needurinalysis when he does eventually make some urine. Given that the patient is clinically stable on presentation and really only camein for his acute kidney injury I do suspect a possible nephrotoxicity from amikacin. Amikacin level has been ordered. Received a total of 1 L normal saline prior to arrival. Given ejection fraction of 10 to 15% and hyperkalemia 5.8 will continue judicious IV hydration with normal saline. Presently he has no shortness of breath. Consult to nephrology. No urgent indications for hemodialysis. Further temporizing treatments of potassium pending stat labs. No EKG changes noted initially. Patient has leukocytosis which has been evaluated for its chronicity with oncology in the past. I do not feel this represents progressing infection at the moment. His Rocephin and linezolid can be continued for now however prior intraoperative wound cultures need to be obtained from [facility] and I will consult infectious disease given the clearly complex nature and resistance of his current infection. Continue wound care and wound VAC. Check coagulation studies and further further anticoagulation pending these results. It is unclear if alternate anticoagulation could be used for his A-fib. 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 Congestive heart failure On home O2 3L Amputated toe of left foot Appendicitis Diabetes mellitus Hypercholesteremia Numbness and tingling of both feet Numbness and tingling in both hands Cardiac defibrillator in place HTN (hypertension) COPD (chronic obstructive pulmonary disease) Surgical History History of cataract extraction bilateral History of appendectomy H/O cardiac catheterization Family History (Updated 11/22/23 @ 15:40 by Provider Conversion) Brother Legacy FamHx Relation: Brother(s) Cancer Legacy FamHx Relation: Brother(s); Legacy FamHx Problem: Diagnosed with Cancer Father Mother Diabetes Hypertension Heart disease Other CAD (coronary artery disease) Social History Smoking Status: Former smoker Tobacco Type: cigarettes Substance Use Type: Former User and Alcohol Social History Comments: lives in a trailor - with Promise (friend) Meds Medications and Allergies Allergies LUPIS Inhibitors Allergy (Unknown, Verified 01/08/24 05:36) Cough Home Medications albuterol sulfate 2.5 mg/3 [...] DIRECTEDPRN Chest Pain 04/10/22 [History Confirmed 02/13/23] spironolactone 25 mg [...] #30 tabs 06/06/22 [Rx Confirmed 02/13/23] dapagliflozin propanediol 10 mg tablet (Farxiga) 10 mg PO DAILY 02/13/23 [History Confirmed 02/13/23] furosemide 20 mg tablet 60 mg PO BID 02/13/23 [History Confirmed 02/13/23] metolazone 2.5 mg tablet 2.5 mg PO QWEEK 02/13/23 [History Confirmed 02/13/23] potassium chloride 10 mEq tablet,extended release (Klor-Con) 20 meq (2 x 10 mEq)PO DAILY #14 tabs 02/14/23 [Rx Confirmed 02/13/23] Assessment & Plan Assessment/Plan (1) Acute kidney injury superimposed on CKD: Plan as above IP vs OBS Justification Based on differential dx, clinical care plan, and risk of adverse events, if untreated, in my clinical judgement this patient requires an acute care setting as: INPATIENT because of an expectation of an over 2 midnight stay. Estimated length of stay (# of days): 4 Documented By: Farhan Hudson DO 01/28/24 20 21 Signed By: <Electronically signed by Farhan Hudson, > 01/28/24 2310 [facility] Work Phone: 1(785) 873-631003-08-2024 NoteCoronary artery disease is stable with out Concerning symptoms Continue GDMT continue risk factor modifications- heart healthy diet, regular exercise as tolerated and continue all medications.[facility] 01-25-2024 NoteNYHC II-III currently he appears euvolemic and without exacerbation Per [...] electrolytes- please maintain K+>4 and Mg > 2[facility] 01-25-2024 NoteUTP CARDIOLOGY PROGRESS NOTE HPI: Adwoa Porter is a 68 y.o. male here for hospital F/U- [facility] HPI Pt presents today for hospital f/U after recent admit to [facility]. Known PMH HFrEF, CAD, a fib, LV thrombus, severe TV regurg. Denied chest pain, SOB, orthopnea, palpitations. States overall he is feeling well and only complaint is the antibiotic shot. He currently is living at a SNF after DC from hospital, receiving IV antibiotics via PICC line. Admit 01/15/24-01/23/24 Pt was admitted to [facility] for Sepsis- non healing DFU, Acute resp [...] with known h/o coronary artery disease with MANAGER CONSUMER INSIGHTS of the RCA and mild to moderate [...] Day BSA 2.06 m??? Allergies Allergen Reactions Lupis Inhibitors Medications: Current Outpatient Medications on File [...] with lunch, and with evening meal. HYDROcodone-acetaminophen ([place]) 5-325 mg tablet Take 1 tablet by [...] movements intact. Conjunctiva/sclera: Conj (more content not included)...[facility]03-08-2024 NotePatient here for follow up [facility]. Bumex was stopped by Dr. Fournier upon discharge. Denies chest pain, SOB, palpitations lightheadedness/syncope, and bleeding on warfarin. Review of Systems Cardiovascular: Positive for leg swelling. Skin: Positive for poor wound healing. Musculoskeletal: Positive for muscle weakness. All other systems reviewed and are negative.[facility] 12-20-2023 Evaluation note* Encounter Date Diagnosis Assessment Notes Treatment Notes Treatment Clinical Notes Dec, Facet arthritis of lumbar region (ICD-10 - M46.96) [employer] Other 01-29-2024 Evaluation note* Encounter Date Diagnosis Assessment Notes Treatment Notes Treatment Clinical Notes Nov, Increased urinary frequency (ICD-10 - R35.0) [employer] Other 01-22-2024 Evaluation note* Encounter Date Diagnosis [...] a burger and a few fries from [employer] before he came here. He said that [...] and making changes by Shaw Rondon RN, [facility]. 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 failure w/hypoxia, acute on systolic chronic HF Medical History [facility]- r ight great toe bleeding (not stopping) Medical History pneumonia-[facility] 06-05 Medical History [facility]-7-2023 Medical History [id number]-[facility] Medical History NON RESPONSIVE X 2 IN THE LAST 6 WEEKS Surgical History Cardiac catherization (07/2010) Surgical History AICD insertion (11/2010) Surgical History right sided heart cath - [facility] 10/2013 Surgical History appendectomy Surgical History rt [...] rt. heart cath [facility] Stout- [facility] 05/11/16 Hospitalization History Water retention/ [facility] 02/2017 Hospitalization History Observation-[facility] pitpa 11/2017 Hospitalization History INFECTION IN LEFT SMALL TOE AND FOOT 11/2018 Hospitalization History [facility] -- ICU -- COPD, SMAL L WOUND ON LEFT FOOT 12/2019 Hospitalization History COPD [facility] [place] 12/2019 Hospitalization History Ankle wound 01/2020 Hospitalization History COVID 11/2020 Hospitalization History A-FIB, CHF, KIDNEY ISSUE S 03/[address] [facility] [place] Hospitalization History [facility] discha rged 03-27-2023 Hospitalization History [facility] x2 7-2 023 Hospitalization History RSV-[facility] 10-2 023 Hospitalization History [facility] rib fx left Hospitalization History [facility] -pnemo jennifer [employer] Other 01-08-2024 NotePatient here for 2 mo follow up CHF, permanent afib, and CAD. He was admitted to [facility] last month for sepsis and pneumonia. He denies chest pain, SOB, and bleeding on warfarin. Doing well s/p hospital admission. Had follow up labs on 11/09/2023. Review of Systems Cardiovascular: Positive for leg swelling (L > R). Musculoskeletal: Positive for muscle weakness. All other systems reviewed and are negative.[facility] 11-26-2023 NoteUTP CARDIOLOGY PROGRESS NOTE HPI: Adwoa Porter is a 68 y.o. male here for HFrEF, CAD, a fib, LV thrombus, severe TV regurg. HPI 68 yo male with known h/o coronary artery disease with MANAGER CONSUMER INSIGHTS of the RCA and mild to moderate [...] afib, and CAD. He was admitted to [facility] last month for sepsis and pneumonia. He [...] are negative. Previous HPI per Dr Girish Le is seen in follow up. He is a 68 yo man with complex medical history. Prior medical history is significant for coronary artery disease with MANAGER CONSUMER INSIGHTS of the RCA and mild to moderate [...] October 2020. He was recently admitted to [facility] in August 2023 with acute respiratory [...] breath at rest. He recovered at the halfway facility but he is now back home. No chest pain. His leg swelling has significantly improved. He does not feel palpitations. Visit Vitals BP 113/71 (BP Location: Left arm, Patient Position: Sitting) Pulse 86 Ht 1.753 m (5' 9 ) Wt 86.2 kg (190 lb) SpO2 99% BMI 28.06 kg/m??? Smoking Status Every Day BSA 2.05 m??? Allergies Allergen Reactions Lupis Inhibitors Medications: Current Outpatient Medications on File [...] with lunch, and with evening meal. HYDROcodone-acetaminophen ([place]) 5-325 mg tablet Take 1 tablet by [...] crush or chew. lucy (more content not included)...[facility] 11-26-2023 NoteRemains on warfarin Denied any bleeding tendencies voicedUniversC[facility] 11-26-2023 NoteMonitor with routine echoUnSelect Medical [facility] 11-26-2023 NoteDevice interrogation q 6 monthsUnSelect Medical [facility]01-08-2024 NoteContinue coreg AICD in placeUnSelect Medical [facility]01-08-2024 NoteRemains on statin [facility]01-08-2024 NoteHypertension is well controlled 113/71 Remains on Coreg, hydralazine, isordil, aldacotonUnSelect Medical [facility]01-08-2024 NoteNYHC IIIc- currently euvolemic without exacerbation Continue GDMT- ASA, lipitor, coreg, farxiga, digoxin, hydralazine, isordil, aldactone Diuretic therapy- bumex and metolazone= f/U with nephrology Monitor daily weights, I&O, fluid restriction 1.5-2L/day, renal function and electrolytes-[facility]01-08-2024 NoteRemains on GDMT [facility]01-08-2024 [id number]= 5- HTN, CHF, CAD, DM remainds on warfarin anticoagulation, DIgoxin and COregUnSelect Medical [facility]01-08-2024 NoteCoronary artery disease is stable Continue GDMT- ASA, lipitor, coreg continue risk factor modifications- heart healthy diet, regular exercise as tolerated and continue all medications.[facility] 11-22-2023 Evaluation note* Encounter Date Diagnosis Assessment [...] arthritis of lumbar region (ICD-10 - M46.96) [employer] Other 01-03-2024 Evaluation note* Encounter Date Diagnosis Assessment Notes Treatment Notes Treatment Clinical Notes Nov, Facet arthritis of lumbar region (ICD-10 - M46.96) [employer] Other 12-28-2023 Evaluation note* Encounter Date Diagnosis [...] continue follow-up with hematology as needed basis. [employer] Other 12-26-2023 Evaluation note* Encounter Date Diagnosis [...] (hypertension) (ICD-10 - I10) reasonable today Oct, prison current use of insulin (ICD-10 - Z79.4) Oct, Vitamin B 12 deficiency (ICD-10 - E53.8) Oct, CKD (chronic kidney disease) stage 3, GFR 30-59 ml/min (ICD-10 - N18.3) keep f/u with nephrology Oct, Type 2 diabetes mellitus with diabetic neuropathy, unspecified (ICD-10 - E11.40) Oct, BMI 28.0-28.9,adult (ICD-10 - Z68.28) [employer] Other 12-21-2023 History general Narrative - Reported* [...] Medical History [facility] Medical History 04/28/2022 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 failure w/hypoxia, acute on systolic chronic HF Medical History [facility]- r ight great toe bleeding (not stopping) Medical History pneumonia-[facility] 06-05 Medical History [facility]-7-2023 Medical History [id number]-[facility] Surgical History Cardiac catherization (07/2010) Surgical History AICD insertion (11/2010) Surgical History right sided heart cath - [facility] 10/2013 Surgical History appendectomy Surgical History rt [...] rt. heart cath Rex Stout- [facility] 05/11/16 Hospitalization History Water retention/ [facility] 02/2017 Hospitalization History Observation-[facility] 11/2017 Hospitalization History INFECTION IN LEFT SMALL TOE AND FOOT 11/2018 Hospitalization History [facility] -- ICU -- COPD, SMAL L WOUND ON LEFT FOOT 12/2019 Hospitalization History COPD [facility] [place] 12/2019 Hospitalization History Ankle wound 01/2020 Hospitalization History COVID 11/2020 Hospitalization History A-FIB, CHF, KIDNEY ISSUE S 03/[address] [facility] [place] Hospitalization History [facility] discha rged 03-27-2023 Hospitalization History [facility] x2 7-[address] 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 failure w/hypoxia, acute on systolic chronic HF Medical History [facility]- r ight great toe bleeding (not stopping) Medical History pneumonia-[facility] 06-05 Medical History [facility]-7-2023 Medical History [id number]-[facility] Surgical History Cardiac catherization (07/2010) Surgical [...] rt. heart cath Rex Stout- [facility] 05/11/16 Hospitalization History Water retention/ [facility] 02/2017 Hospitalization History Observation-[facility] pital 11/2017 Hospitalization History INFECTION IN LEFT SMALL TOE AND FOOT 11/2018 Hospitalization History [facility] -- ICU -- COPD, SMAL L WOUND ON LEFT FOOT 12/2019 Hospitalization History COPD [facility] [place] 12/2019 Hospitalization History Ankle wound 01/2020 Hospitalization History COVID 11/2020 Hospitalization History A-FIB, CHF, KIDNEY ISSUE S 03/[address] [facility] [place]23 Hospitalization History [facility] discha rged 03-27-2023 Hospitalization History [facility] x2 7-[address] 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 failure w/hypoxia, acute on systolic chronic HF Medical History [facility]- r ight great toe bleeding (not stopping) Medical History pneumonia-[facility] 06-05 Medical History [facility]-7-2023 Medical History [id number]-[facility] Surgical History Cardiac catherization (07/2010) Surgical [...] rt. heart cath Rex Stout- [facility] 05/11/16 Hospitalization History Water retention/ [facility] 02/2017 Hospitalization History Observation-[facility] 11/2017 Hospitalization History INFECTION IN LEFT SMALL TOE AND FOOT 11/2018 Hospitalization History [facility] -- ICU -- COPD, SMAL L WOUND ON LEFT FOOT 12/2019 Hospitalization History COPD [facility] [place] 12/2019 Hospitalization History Ankle wound 01/2020 Hospitalization History COVID 11/2020 Hospitalization History A-FIB, CHF, KIDNEY ISSUE S 03/[address] 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 failure w/hypoxia, acute on systolic chronic HF Medical History [facility]- r ight great toe bleeding (not stopping) Medical History pneumonia-[facility] 06-05 Medical History [facility]-7-2023 Medical History [id number]-[facility] Surgical History Cardiac catherization (07/2010) Surgical History AICD insertion (11/2010) Surgical History right sided heart cath - [facility] 10/2013 Surgical History appendectomy Surgical History rt [...] rt. heart cath Rex Stout- [facility] 05/11/16 Hospitalization History Water retention/ [facility] 02/2017 Hospitalization History Observation-[facility] 11/2017 Hospitalization History INFECTION IN LEFT SMALL TOE AND FOOT 11/2018 Hospitalization History [facility] -- ICU -- COPD, SMAL L WOUND ON LEFT FOOT 12/2019 Hospitalization History COPD [facility] [place] 12/2019 Hospitalization History Ankle wound 01/2020 Hospitalization History COVID 11/2020 Hospitalization History A-FIB, CHF, KIDNEY ISSUE S 03/[address] [facility] [place]2023 Hospitalization History [facility] discha rged 03-27-2023 Hospitalization History [facility] x2 7-[address] [facility] 10-2 023 [employer] Other 12-04-2023 Evaluation note* Encounter Date Diagnosis Assessment Notes Treatment Notes Treatment Clinical Notes Oct, Type 2 diabetes mellitus with hyperglycemia (ICD-10 - E11.65) [employer] Other 12-01-2023 Evaluation note* Encounter Date Diagnosis Assessment Notes Treatment Notes Treatment Clinical Notes Oct, Facet arthritis of lumbar region (ICD-10 - M46.96) [employer] Other 12-01-2023 History general Narrative - Reported* [...] Medical History [facility] Medical History 04/28/2022 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 failure w/hypoxia, acute on systolic chronic HF Medical History [facility]- r ight great toe bleeding (not stopping) Medical History pneumonia-[facility] 06-05 Medical History [facility]-7-2023 Medical History [id number]-[facility] Surgical History Cardiac catherization (07/2010) Surgical History AICD insertion (11/2010) Surgical History right sided heart cath - [place] 10/2013 Surgical History appendectomy Surgical History rt heart cath 05/11/16 Surgical History pacemaker 07/2016 Surgical History SKIN GRAFT-FROM LEFT LEG TO LEF T FOOT 10/2018 Surgical History LEFT SMALL TOE AMPUTATION WITH SOME FOOT BONE 11/2018 Surgical History COLONOSCOPY AND EGD MYRNA Surgical History amputation left fifth toe Surgical History Ankle I/D LEFT 01/2020 Surgical History Left heel skin graft 03/29/2020 Surgical History SKIN GRAFT TO LEFT FOOT 03/2020 Surgical History CATARACT REMOVED ON RIGHT EYE Surgical History CATARACT REMOVED FROM LEFT EYE 06/2021 Hospitalization History see surgical hx Hospitalization History rt. heart cath Rex Stout- [facility] 05/11/16 Hospitalization History Water retention/ [facility] 02/2017 Hospitalization History Observation-[facility] pital 11/2017 Hospitalization History INFECTION IN LEFT SMALL TOE AND FOOT 11/2018 Hospitalization History [facility] -- ICU -- COPD, SMAL L WOUND ON LEFT FOOT 12/2019 Hospitalization History COPD [facility] [place] 12/2019 Hospitalization History Ankle wound 01/2020 Hospitalization History COVID 11/2020 Hospitalization History A-FIB, CHF, KIDNEY ISSUE S 03/[address] [facility] [place]2023 Hospitalization History [facility] discha rged 03-27-2023 Hospitalization History [facility] x2 7-2 023 Hospitalization History [facility] 10-2 023 [employer] Other 11-20-2023 Evaluation note* Encounter Date Diagnosis [...] spent on education by Lashell KARIMI, RN [employer] Other 11-16-2023 Evaluation note* Encounter Date Diagnosis Assessment Notes Treatment Notes Treatment Clinical Notes Sep, Type 2 diabetes mellitus with hyperglycemia (ICD-10 - E11.65) Adwoa came in today for download and Evaluation of his Lucas report after calling and stating earlier this week that his BGs have been high and he is out of [facility] and nearly out of [facility]. He failed to bring his meter [...] able to help patient improve his glycemia. 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 failure w/hypoxia, acute on systolic chronic HF Medical History [facility]- r ight great toe bleeding (not stopping) Medical History pneumonia-[facility] 06-05 Medical History [facility]-7-2023 Medical History [id number]-[facility] Surgical History Cardiac catherization (07/2010) Surgical History AICD insertion (11/2010) Surgical History right sided heart cath - [facility] 10/2013 Surgical History appendectomy Surgical History rt [...] rt. heart cath Rex Stout- [facility] 05/11/16 Hospitalization History Water retention/ [facility] 02/2017 Hospitalization History Observation-[facility] 11/2017 Hospitalization History INFECTION IN LEFT SMALL TOE AND FOOT 11/2018 Hospitalization History [facility] -- ICU -- COPD, SMAL L WOUND ON LEFT FOOT 12/2019 Hospitalization History COPD [facility] [place] 12/2019 Hospitalization History Ankle wound 01/2020 Hospitalization History COVID 11/2020 Hospitalization History A-FIB, CHF, KIDNEY ISSUE S 03/[address] [facility] [place]2023 Hospitalization History [facility] discha rged 03-27-2023 Hospitalization History [facility] x2 7-2 023 Hospitalization History [facility] 10-2 023 [employer] Other 11-03-2023 NoteUT Cardiology - [facility] Subjective Adwoa Porter is a 68 y.o. year old male patient being seen for Follow-up and Congestive Heart Failure Patient Active Problem List Diagnosis Anxiety state Atrial fibrillation (CMS/HCC) Chronic obstructive lung disease ([facility]/HCC) Chronic systolic congestive heart failure ([facility]/HCC) Conduction disorder of the heart Atherosclerosis of chilkoot coronary artery of ch[place]koot heart without angina pectoris Type 2 diabetes mellitus with diabetic peripheral angiopathy without gangrene, with long-term current use of insulin ([facility]/HCC) Dyspnea Mixed hyperlipidemia Implantable cardioverter-defibrillator (ICD) in situ Obesity Palpitations Paroxysmal ventricular tachycardia (CMS/HCC) Raised prostate specific antigen Renal function test abnormal Uncontrolled type 2 diabetes mellitus Upper respiratory infection Stage 3b chronic kidney disease ([facility]/HCC) ISAK on CPAP PVD (peripheral vascular disease) ([facility]/HCC) Osteomyelitis of left foot (CMS/HCC) Open wound [...] of right foot with fat layer exposed ([facility]/HCC) Diabetes mellitus (CMS/HCC) Essential hypertension History of amputation of left great toe (CMS/HCC) History of amputation of lesser toe of left foot (CMS/HCC) prison (current) use of anticoagulants Iron deficiency anemia [...] is significant for coronary artery disease with MANAGER CONSUMER INSIGHTS of the RCA and mild to moderate [...] October 2020. He was recently admitted to [facility] in August 2023 with acute respiratory [...] breath at rest. He recovered at the halfway facility but he is now back home. [...] distension. 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 failure w/hypoxia, acute on systolic chronic HF Medical History [facility]- r ight great toe bleeding (not stopping) Medical History pneumonia-[facility] 06-05 Medical History [facility]-7-2023 Medical History [id number]-[facility] Surgical History Cardiac catherization (07/2010) Surgical [...] rt. heart cath Rex Stout- [facility] 05/11/16 Hospitalization History Water retention/ [facility] 02/2017 Hospitalization History Observation-[facility] 11/2017 Hospitalization History INFECTION IN LEFT SMALL TOE AND FOOT 11/2018 Hospitalization History [facility] -- ICU -- COPD, SMAL L WOUND ON LEFT FOOT 12/2019 Hospitalization History COPD [facility] [place] 12/2019 Hospitalization History Ankle wound 01/2020 Hospitalization History COVID 11/2020 Hospitalization History A-FIB, CHF, KIDNEY ISSUE S 03/[address] [facility] [place]23 Hospitalization History [facility] discha rged 03-27-2023 Hospitalization History [facility] x2 7-[address] [facility] 10-2 023 [employer] Other 10-31-2023 Evaluation note* Encounter Date Diagnosis [...] 36 units once daily as extrapolated from [facility], we did discuss reducing by 3 units [...] (hypertension) (ICD-10 - I10) reasonable today Aug, molder current use of insulin (ICD-10 - Z79.4) Aug, Vitamin B 12 deficiency (ICD-10 - E53.8) Aug, CKD (chronic kidney disease) stage 3, GFR 30-59 ml/min (ICD-10 - N18.3) keep f/u with nephrology Aug, Type 2 diabetes mellitus with diabetic neuropathy, unspecified (ICD-10 - E11.40) Aug, BMI 32.0-32.9,adult (ICD-10 - Z68.32) [employer] Other 10-31-2023 History general Narrative - Reported* [...] Medical History [facility] Medical History 04/28/2022 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 failure w/hypoxia, acute on systolic chronic HF Medical History [facility]- r ight great toe bleeding (not stopping) Medical History pneumonia-[facility] 06-05 Medical History [facility]-7-2023 Medical History [id number]-[facility] Surgical History Cardiac catherization (07/2010) Surgical History AICD insertion (11/2010) Surgical History right sided heart cath - [facility] 10/2013 Surgical History appendectomy Surgical History rt [...] rt. heart cath Rex Stout- [facility] 05/11/16 Hospitalization History Water retention/ [facility] 02/2017 Hospitalization History Observation-[facility] 11/2017 Hospitalization History INFECTION IN LEFT SMALL TOE AND FOOT 11/2018 Hospitalization History [facility] -- ICU -- COPD, SMAL L WOUND ON LEFT FOOT 12/2019 Hospitalization History COPD [facility] [place] 12/2019 Hospitalization History Ankle wound 01/2020 Hospitalization History COVID 11/2020 Hospitalization History A-FIB, CHF, KIDNEY ISSUE S 03/[address] [facility] [place]23 Hospitalization History [facility] discha rged 03-27-2023 Hospitalization History [facility] x2 7-2 023 Hospitalization History RSV-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 failure w/hypoxia, acute on systolic chronic HF Medical History [facility]- r ight great toe bleeding (not stopping) Medical History pneumonia-[facility] 06-05 Medical History [facility]-7-2023 Surgical History Cardiac catherization (07/2010) Surgical [...] rt. heart cath Rex Stout- [facility] 05/11/16 Hospitalization History Water retention/ [facility] 02/2017 Hospitalization History Observation-[facility] 11/2017 Hospitalization History INFECTION IN LEFT SMALL TOE AND FOOT 11/2018 Hospitalization History [facility] ICU -- COPD, SMAL L WOUND ON LEFT FOOT 12/2019 Hospitalization History COPD [facility] [place] 12/2019 Hospitalization History Ankle wound 01/2020 Hospitalization History COVID 11/2020 Hospitalization History A-FIB, CHF, KIDNEY ISSUE S 03/[address] 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 failure w/hypoxia, acute on systolic chronic HF Medical History [facility]- r ight great toe bleeding (not stopping) Medical History pneumonia-[facility] 06-05 Medical History [facility]-7-2023 Surgical History Cardiac catherization (07/2010) Surgical [...] rt. heart cath Rex Stout- [facility] 05/11/16 Hospitalization History Water retention/ [facility] 02/2017 Hospitalization History Observation-[facility] 11/2017 Hospitalization History INFECTION IN LEFT SMALL TOE AND FOOT 11/2018 Hospitalization History [facility] -- ICU -- COPD, SMAL L WOUND ON LEFT FOOT 12/2019 Hospitalization History COPD [facility] [place] 12/2019 Hospitalization History Ankle wound 01/2020 Hospitalization History COVID 11/2020 Hospitalization History A-FIB, CHF, KIDNEY ISSUE S 03/2021 Hospitalization History FR 01/2023 Hospitalization History [facility] discha rged 03-27-2023 Hospitalization History [facility] x2 [phone] [employer] Other 10-05-20[facility] NotePatient here for follow up TB [...] weakness. All other systems reviewed and are negative.[facility] 08-23-2023 NoteCardiovascular Medicine [facility] SUBJECTIVE Chief Complaint Patient presents with [facility] Follow-up Adwoa Porter is a 68 y.o. male here for follow-up. Congestive Heart Failure His past medical history is significant for CAD. Coronary Artery Disease His past medical history is significant for CHF. Adwoa Porter is a 67 y.o. 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 Patient here for follow up [facility] discharge yesterday for HFrEF. His girlfriend called the office yesterday when he was being discharged to make us aware that he's still very swollen and SOB. He is down 12# from his office visit last week with Cecile Watson. Patient is c/o wheezing and is requesting something for cough. 08/23/2023 He was recently admitted to [facility] for acute on chronic HFrEF exacerbation [...] Conduction disorder of the heart Atherosclerosis of chilkoot coronary artery of chilkoot heart without angina pectoris Type 2 diabetes [...] Abdominal tenderness Acute on chronic respiratory failure ([facility]/HCC) Benign prostatic hyperplasia with urinary obstruction Cardiomyopathy, [...] with fat layer exposed (CMS/HCC) Diabetes mellitus ([facility]/HCC) Essential hypertension History of amputation of left great toe ([facility]/HCC) History of amputation of lesser toe of left foot ([facility]/HCC) prison (current) use of anticoagulants Iron deficiency anemia Hyperglycemia due to type 2 diabetes mellitus ([facility]/HCC) Past Medical History: Diagnosis Date Anxiety Atrial fibrillation (CMS/HCC) Cardiomyopathy (CMS/HCC) CHF (congestive heart failure) (CMS/HCC) Chronic kidney disease COPD (chronic obstructive pulmonary disease) (CMS/HCC) Coronary artery disease Diabetes mellitus ([facility]/HCC) High cholesterol Hyperlipidemia Hypertension Family History Problem Relation Name Age of Onset Diabetes Mother Hypertension Mother Coronary artery disease Mother Social History Tobacco Use Smoking status: Every Day Types: Cigarettes Passive exposure: Never Smokeless tobacco: Never Vaping Use Vaping Use: Never used Substance Use Topics Alcohol use: Never Drug use: Not Currently Allergies Allergen Reactions Lupis Inhibitors ROS Constitutional: Positive for weight loss [...] (5' 9 ) Wt (more content not included)...[facility]10-[facility]20[facility] Evaluation note* Encounter Date Diagnosis Assessment Notes Treatment Notes Treatment Clinical Notes Aug, Facet arthritis of lumbar region (ICD-10 - M46.96) [employer] Other 09-27-2023 NoteCurrently stable*[facility]09-27-2023 NoteSending for labs today and pt to f/U with Dr Orr as scheduledUnSelect [facility]09-27-2023 NoteNYHC- III Continue GDMT- ASA, lipitor, [...] bmp and BNP F/U with nephrology as scheduledUnSelect Medical [facility]09-27-2023 NoteContinue Coreg- currently stable and no concerning symptomsUnSelect Medical [facility]09-27-2023 NoteUTP CARDIOLOGY PROGRESS NOTE HPI: Adwoa [...] to afford Farxiga. He was admitted to [facility] last week for hemoptysis. This has [...] reviewed and are negative. Recent eval in [facility] ED 07/31/23 Visit Vitals BP 121/79 (BP Location: Right arm, Patient Position: Sitting) Pulse 85 Ht 1.753 m (5' 9 ) Wt 96.6 kg (213 lb) SpO2 98% BMI 31.45 kg/m??? Smoking Status Every Day BSA 2.17 m??? Allergies Allergen Reactions Lupis Inhibitors Medications: Current Outpatient Medications on File [...] with lunch, and with evening meal. HYDROcodone-acetaminophen ([place]) 5-325 mg tablet Take 1 tablet by [...] Pulmonary: Effort: Pulmonary effo (more content not included)...[facility]09-27-2023 NotePatient here for follow up lasix increase. Dr. Stout increased it to 140mg bid a few days ago. He has taken 3 doses of this so far and feels so much better. He is unable to afford Farxiga. He was admitted to [facility] last week for hemoptysis. This has [...] weakness. 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 failure w/hypoxia, acute on systolic chronic HF Medical History [facility]- r ight great toe bleeding (not stopping) Medical History pneumonia-[facility] 06-05 Medical History [facility]-7-2023 Surgical History Cardiac catherization (07/2010) Surgical [...] rt. heart cath Rex Stout- [facility] 05/11/16 Hospitalization History Water retention/ [facility] 02/2017 Hospitalization History Observation-[facility] 11/2017 Hospitalization History INFECTION IN LEFT SMALL TOE AND FOOT 11/2018 Hospitalization History [facility] -- ICU -- COPD, SMAL L WOUND ON LEFT FOOT 12/2019 Hospitalization History COPD [facility] [place] 12/2019 Hospitalization History Ankle wound 01/2020 Hospitalization History COVID 11/2020 Hospitalization History A-FIB, CHF, KIDNEY ISSUE S 03/[address] 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 failure w/hypoxia, acute on systolic chronic HF Medical History [facility]- r ight great toe bleeding (not stopping) Medical History pneumonia-[facility] 06-05 Medical History [facility]-7-2023 Surgical History Cardiac catherization (07/2010) Surgical [...] rt. heart cath Rex Stout- [facility] 05/11/16 Hospitalization History Water retention/ [facility] 02/2017 Hospitalization History Observation-[facility] 11/2017 Hospitalization History INFECTION IN LEFT SMALL TOE AND FOOT 11/2018 Hospitalization History [facility] -- ICU -- COPD, SMAL L WOUND ON LEFT FOOT 12/2019 Hospitalization History COPD [facility] [place] 12/2019 Hospitalization History Ankle wound 01/2020 Hospitalization History COVID 11/2020 Hospitalization History A-FIB, CHF, KIDNEY ISSUE S 03/[address] 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 failure w/hypoxia, acute on systolic chronic HF Medical History [facility]- r ight great toe bleeding (not stopping) Medical History pneumonia-[facility] 06-05 Medical History [facility]-7-2023 Surgical History Cardiac catherization (07/2010) Surgical [...] rt. heart cath Rex Stout- [facility] 05/11/16 Hospitalization History Water retention/ [facility] 02/2017 Hospitalization History [facility]ation-[facility] 11/2017 Hospitalization History INFECTION IN LEFT SMALL TOE AND FOOT 11/2018 Hospitalization History [facility] -- ICU -- COPD, SMAL L WOUND ON LEFT FOOT 12/2019 Hospitalization History COPD [facility] [place] 12/2019 Hospitalization History Ankle wound 01/2020 Hospitalization History COVID 11/2020 Hospitalization History A-FIB, CHF, KIDNEY ISSUE S 03/[address] 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 failure w/hypoxia, acute on systolic chronic HF Medical History [facility]- r ight great toe bleeding (not stopping) Medical History pneumonia-[facility] 06-05 Medical History [facility]-7-2023 Surgical History Cardiac catherization (07/2010) Surgical History AICD insertion (11/2010) Surgical History right sided heart cath - [facility] 10/2013 Surgical History appendectomy Surgical History rt heart cath 05/11/16 Surgical History pacemaker 07/2016 Surgical History SKIN GRAFT-FROM LEFT LEG TO LEF T FOOT 10/2018 Surgical History LEFT SMALL TOE AMPUTATION WITH SOME FOOT BONE 11/2018 Surgical History COLONOSCOPY AND EGD [facility] Surgical History amputation left fifth toe Surgical History Ankle I/D LEFT 01/2020 Surgical History Left heel skin graft 03/29/2020 Surgical History SKIN GRAFT TO LEFT FOOT 03/2020 Surgical History CATARACT REMOVED ON RIGHT EYE Surgical History CATARACT REMOVED FROM LEFT EYE 06/2021 Hospitalization History see surgical hx Hospitalization History rt. heart cath Rex Stout- [facility] 05/11/16 Hospitalization History Water retention/ [facility] 02/2017 Hospitalization History Observation-[facility] 11/2017 Hospitalization History INFECTION IN LEFT SMALL TOE AND FOOT 11/2018 Hospitalization History [facility] -- ICU -- COPD, SMAL L WOUND ON LEFT FOOT 12/2019 Hospitalization History COPD [facility] [place] 12/2019 Hospitalization History Ankle wound 01/2020 Hospitalization History COVID 11/2020 Hospitalization History A-FIB, CHF, KIDNEY ISSUE S 03/[address] [facility] [place] Hospitalization History [facility] discha rged 03-27-2023 Hospitalization History [facility] x2 [phone] [employer] Other 08-11-2023 Evaluation note* Encounter Date Diagnosis [...] of this is related to diabetic neuropathy [employer] Other 08-11-2023 Evaluation note* Encounter Date Diagnosis [...] (hypertension) (ICD-10 - I10) reasonable today Jun, molder current use of insulin (ICD-10 - Z79.4) Jun, Vitamin B 12 deficiency (ICD-10 - E53.8) Jun, CKD (chronic kidney disease) stage 3, GFR 30-59 ml/min (ICD-10 - N18.3) keep f/u with nephrology Jun, Type 2 diabetes mellitus with diabetic neuropathy, unspecified (ICD-10 - E11.40) Jun, BMI 32.0-32.9,adult (ICD-10 - Z68.32) [employer] Other 08-11-2023 History general Narrative - Reported* [...] Medical History [facility] Medical History 04/28/2022 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 failure w/hypoxia, acute on systolic chronic HF Medical History [facility]- r ight great toe bleeding (not stopping) Medical History pneumonia-[facility] - Medical History [facility]-7-2023 Surgical History Cardiac catherization (07/2010) Surgical History AICD insertion (11/2010) Surgical History right sided heart cath - [facility] 10/2013 Surgical History appendectomy Surgical History rt [...] rt. heart cath Rex Stout- [facility] 05/11/16 Hospitalization History Water retention/ [facility] 02/2017 Hospitalization History Observation-[facility] 11/2017 Hospitalization History INFECTION IN LEFT SMALL TOE AND FOOT 11/2018 Hospitalization History [facility] -- ICU -- COPD, SMAL L WOUND ON LEFT FOOT 12/2019 Hospitalization History COPD [facility] [place] 12/2019 Hospitalization History Ankle wound 01/2020 Hospitalization History COVID 11/2020 Hospitalization History A-FIB, CHF, KIDNEY ISSUE S 03/[address] 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 failure w/hypoxia, acute on systolic chronic HF Medical History [facility]- r ight great toe bleeding (not stopping) -2022 Surgical History Cardiac catherization (07/2010) Surgical History [...] rt. heart cath Rex Stout- [facility] 05/11/16 Hospitalization History Water retention/ [facility] 02/2017 Hospitalization History [facility] 11/2017 Hospitalization History INFECTION IN LEFT SMALL TOE AND FOOT 11/2018 Hospitalization History [facility] -- ICU -- COPD, SMAL L WOUND ON LEFT FOOT 12/2019 Hospitalization History COPD [facility] [place] 12/2019 Hospitalization History Ankle wound 01/2020 Hospitalization History COVID 11/2020 Hospitalization History A-FIB, CHF, KIDNEY ISSUE S 03/[address] [facility] [place] Hospitalization History [facility] discha rged 03-27-2023 [employer] Other 07-18-2023 Note[facility] - [facility] Subjective Adwoa Porter is a 67 y.o. year old male patient being seen for Follow-up Patient Active Problem List Diagnosis Anxiety state Atrial fibrillation (CMS/HCC) Chronic obstructive lung disease (CMS/HCC) Chronic systolic congestive heart failure (CMS/HCC) Conduction disorder of the heart Atherosclerosis of chilkoot coronary artery of chilkoot heart without angina pectoris Type 2 diabetes [...] in follow-up after recent admission to the [facility] with decompensated heart failure. He underwent [...] is significant for coronary artery disease with [employer] of the RCA and mild to moderate [...] with us he was admitted to the [facility] twice with decompensated heart failure. 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 failure w/hypoxia, acute on systolic chronic HF Medical History [facility]- r ight great toe bleeding (not [...] hx [facility] 02/2017 Hospitalization History [facility] 11/2017 Hospitalization History INFECTION IN LEFT SMALL TOE AND FOOT 11/2018 Hospitalization History [facility] -- ICU -- COPD, SMAL L WOUND ON LEFT FOOT 12/2019 Hospitalization History COPD [facility] [place] 12/2019 Hospitalization History Ankle wound 01/2020 Hospitalization History COVID 11/2020 Hospitalization History A-FIB, CHF, KIDNEY ISSUE S 03/[address] 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 failure w/hypoxia, acute on systolic chronic HF Medical History [facility]- r ight great toe bleeding (not stopping) Surgical History Cardiac catherization (07/2010) Surgical History AICD insertion (11/2010) Surgical History right sided heart cath - [facility] 10/2013 Surgical History appendectomy Surgical History rt heart cath 05/11/16 Surgical History pacemaker 07/2016 Surgical History SKIN GRAFT-FROM LEFT LEG TO LEF T FOOT 10/2018 Surgical History LEFT SMALL TOE AMPUTATION WITH SOME FOOT BONE 11/2018 Surgical History COLONOSCOPY AND EGD [facility] Surgical History amputation left fifth toe Surgical History Ankle I/D LEFT 01/2020 Surgical History Left heel skin graft 03/29/2020 Surgical History SKIN GRAFT TO LEFT FOOT 03/2020 Surgical History CATARACT REMOVED ON RIGHT EYE Surgical History CATARACT REMOVED FROM LEFT EYE 06/2021 Hospitalization History see surgical hx Hospitalization History rt. heart cath [facility] St[facility]- [facility] 05/11/16 Hospitalization History Water retention/ [facility] 02/2017 Hospitalization History [facility] 11/2017 Hospitalization History INFECTION IN LEFT SMALL TOE AND FOOT 11/2018 Hospitalization History [facility] -- ICU -- COPD, SMAL L WOUND ON LEFT FOOT 12/2019 Hospitalization History COPD [facility] [place] 12/2019 Hospitalization History Ankle wound 01/2020 Hospitalization History COVID 11/2020 Hospitalization History A-FIB, CHF, KIDNEY ISSUE S 03/[address] [facility] Hospitalization History [facility] discha rged 03-27-2023 [employer] Other 06-14-2023 Evaluation note* Encounter Date Diagnosis [...] sensors on. He was given 6 grif regrader to assist him with wearing the device. 45 minutes were spent evaluating the patient's report and discussing its findings with the patient by Shaw Rondon RN, [facility]. [employer] Other 06-01-2023 Evaluation note* Encounter Date Diagnosis [...] leukocytosis and currently follows with a hematology. [employer] Other 06-01-2023 Evaluation note* Encounter Date Diagnosis [...] understanding and is agreeable with treatment plan. 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 failure w/hypoxia, acute on systolic chronic HF Surgical History Cardiac catherization (07/2010) Surgical History AICD insertion (11/2010) Surgical History right sided heart cath - [facility] 10/2013 Surgical History appendectomy Surgical History rt [...] rt. heart cath Rex Stout- [facility] 05/11/16 Hospitalization History Water retention/ [facility] 02/2017 Hospitalization History [facility] 11/2017 Hospitalization History INFECTION IN LEFT SMALL TOE AND FOOT 11/2018 Hospitalization History [facility] -- ICU -- COPD, SMAL L WOUND ON LEFT FOOT 12/2019 Hospitalization History COPD [facility] [place] 12/2019 Hospitalization History Ankle wound 01/2020 Hospitalization History COVID 11/2020 Hospitalization History A-FIB, CHF, KIDNEY ISSUE S 03/[address] [facility] [place]20[place] [employer] Other 05-03-2023 NoteCardiology Clinic Note Subjective Adwoa [...] Conduction disorder of the heart Atherosclerosis of chilkoot coronary artery of chilkoot heart without angina pectoris Type 2 diabetes [...] in follow-up after recent admission to the [facility] with decompensated heart failure. He underwent [...] is significant for coronary artery disease with MANAGER CONSUMER INSIGHTS of the RCA and mild to moderate [...] No gross deficits Allergies Allergies Allergen Reactions Lupis Inhibitors Medications Current Outpatient Medications: amitriptyline (Elavil) [...] tablet, Rfl: 2 digoxin (more content not included)...[facility] 03-21-2023 NotePatient here for 6 week follow [...] weakness. 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 heart cath [facility] St[facility]- [facility] 05/11/16 Hospitalization History Water retention/ [facility] 02/2017 Hospitalization History [facility] 11/2017 Hospitalization History INFECTION IN LEFT SMALL TOE AND FOOT 11/2018 Hospitalization History [facility] -- ICU -- COPD, SMAL L WOUND ON LEFT FOOT 12/2019 Hospitalization History COPD [facility] [place] 12/2019 Hospitalization History Ankle wound 01/2020 Hospitalization History COVID 11/2020 Hospitalization History A-FIB, CHF, KIDNEY ISSUE S 03/[address] 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 heart cath Rex Stout- [facility] 05/11/16 Hospitalization History Water retention/ [facility] 02/2017 Hospitalization History [facility] 11/2017 Hospitalization History INFECTION IN LEFT SMALL TOE AND FOOT 11/2018 Hospitalization History [facility] -- ICU -- COPD, SMAL L WOUND ON LEFT FOOT 12/2019 Hospitalization History COPD [facility] [place] 12/2019 Hospitalization History Ankle wound 01/2020 Hospitalization History COVID 11/2020 Hospitalization History A-FIB, CHF, KIDNEY ISSUE S 03/[address] 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 heart cath Rex Stout- [facility] 05/11/16 Hospitalization History Water retention/ [facility] 02/2017 Hospitalization History [facility] 11/2017 Hospitalization History INFECTION IN LEFT SMALL TOE AND FOOT 11/2018 Hospitalization History [facility] -- ICU -- COPD, SMAL L WOUND ON LEFT FOOT 12/2019 Hospitalization History COPD [facility] [place] 12/2019 Hospitalization History Ankle wound 01/2020 Hospitalization History COVID 11/2020 Hospitalization History A-FIB, CHF, KIDNEY ISSUE S 03/[address] 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 failure w/hypoxia, acute on systolic chronic HF Surgical History Cardiac catherization (07/2010) Surgical History AICD insertion (11/2010) Surgical History right sided heart cath - [facility] 10/2013 Surgical History appendectomy Surgical History rt [...] rt. heart cath Rex Stout- [facility] 05/11/16 Hospitalization History Water retention/ [facility] 02/2017 Hospitalization History [facility] 11/2017 Hospitalization History INFECTION IN LEFT SMALL TOE AND FOOT 11/2018 Hospitalization History [facility] -- ICU -- COPD, SMAL L WOUND ON LEFT FOOT 12/2019 Hospitalization History COPD [facility] [place] 12/2019 Hospitalization History Ankle wound 01/2020 Hospitalization History COVID 11/2020 Hospitalization History A-FIB, CHF, KIDNEY ISSUE S 03/[address] [facility] [place]20[place] [employer] Other 04-05-2023 Evaluation note* Encounter Date Diagnosis [...] - N18.30) Feb, Hypokalemia (ICD-10 - E87.6) [employer] Other 03-24-2023 Evaluation note* Encounter Date Diagnosis [...] failure so a printed prescription was provided [employer] Other 03-13-2023 NoteUT Cardiology - [facility] Subjective Adwoa Porter is a 67 y.o. year old male patient being seen for follow up [facility] for CHF. He is down 30# since last office visit on 01/05/2023. He is feeling much better since discharge. He is now taking metolazone once a week. Bumex was switched to furosemide. Patient Active Problem List Diagnosis Anxiety state Atrial fibrillation (CMS/HCC) Chronic obstructive lung disease (CMS/HCC) Chronic systolic congestive heart failure (CMS/HCC) Conduction disorder of the heart Atherosclerosis of chilkoot coronary artery of chilkoot heart without angina pectoris Type 2 diabetes [...] in follow-up after recent admission to the [facility] with decompensated heart failure. He underwent [...] is significant for coronary artery disease with MANAGER CONSUMER INSIGHTS of the RCA and mild to moderate [...] Judgment: Judgment normal. Allergies Allergies Allergen Reactions Lupis Inhibitors Medicatio (more content not included)...[facility] 01-17-2023 Evaluation note* Encounter Date Diagnosis Assessment [...] - M46.96) Continue current medication, OARRS reviewed [employer] Other 02-28-2023 Evaluation note* Encounter Date Diagnosis Assessment Notes Treatment Notes Treatment Clinical Notes Dec, Lumbar and sacral arthritis (ICD-10 - M48.9) [employer] Other 02-24-2023 History general Narrative - Reported* [...] Medical History [facility] Medical History 04/28/2022 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 heart cath Rex Stout- [facility] 05/11/16 Hospitalization History Water retention/ [facility] 02/2017 Hospitalization History [facility] 11/2017 Hospitalization History INFECTION IN LEFT SMALL TOE AND FOOT 11/2018 Hospitalization History [facility] -- ICU -- COPD, SMAL L WOUND ON LEFT FOOT 12/2019 Hospitalization History COPD [facility] [place] 12/2019 Hospitalization History Ankle wound 01/2020 Hospitalization History COVID 11/2020 Hospitalization History A-FIB, CHF, KIDNEY ISSUE S 03/2021 [employer] Other 02-23-2023 History general Narrative - Reported* [...] Medical History [facility] Medical History 04/28/2022 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 heart cath Rex Stout- [facility] 05/11/16 Hospitalization History Water retention/ [facility] 02/2017 Hospitalization History [facility] 11/2017 Hospitalization History INFECTION IN LEFT SMALL TOE AND FOOT 11/2018 Hospitalization History [facility] -- ICU -- COPD, SMAL L WOUND ON LEFT FOOT 12/2019 Hospitalization History COPD [facility] [place] 12/2019 Hospitalization History Ankle wound 01/2020 Hospitalization History COVID 11/2020 Hospitalization History A-FIB, CHF, KIDNEY ISSUE S 03/2021 [employer] Other 02-18-2023 History general Narrative - Reported* [...] Medical History [facility] Medical History 04/28/2022 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, COPD excacerbation [facility] Medical History 04/28/2022-Sepsis sec ./ Para influenza PNA multifocal-[facility] Medical History 05/08/2022-Increasing shortness of breath [...] BONE 11/2018 Surgical History COLONOSCOPY AND EGD [facility] Surgical History amputation left fifth toe Surgical History Ankle I/D LEFT 01/2020 Surgical History Left heel skin graft 03/29/2020 Surgical History SKIN GRAFT TO LEFT FOOT 03/2020 Surgical History CATARACT REMOVED ON RIGHT EYE Surgical History CATARACT REMOVED FROM LEFT EYE 06/2021 Hospitalization History see surgical hx Hospitalization History rt. heart cath [facility] Stout- [facility] 05/11/16 Hospitalization History Water retention/ [facility] 02/2017 Hospitalization History [facility] 11/2017 Hospitalization History INFECTION IN LEFT SMALL TOE AND FOOT 11/2018 Hospitalization History [facility] -- ICU -- COPD, SMAL L WOUND ON LEFT FOOT 12/2019 Hospitalization History COPD [facility] [place] 12/2019 Hospitalization History Ankle wound 01/2020 Hospitalization History COVID 11/2020 Hospitalization History A-FIB, CHF, KIDNEY ISSUE S 03/2021 [employer] Other 02-13-2023 History general Narrative - Reported* [...] Medical History [facility] Medical History 04/28/2022 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 heart cath Rex Stout- [facility] 05/11/16 Hospitalization History Water retention/ [facility] 02/2017 Hospitalization History [facility] 11/2017 Hospitalization History INFECTION IN LEFT SMALL TOE AND FOOT 11/2018 Hospitalization History [facility] -- ICU -- COPD, SMAL L WOUND ON LEFT FOOT 12/2019 Hospitalization History COPD [facility] [place] 12/2019 Hospitalization History Ankle wound 01/2020 Hospitalization History COVID 11/2020 Hospitalization History A-FIB, CHF, KIDNEY ISSUE S 03/2021 [employer] Other 02-12-2023 History general Narrative - Reported* [...] Medical History [facility] Medical History 04/28/2022 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 failure w/hypoxia, acute on systolic chronic HF Surgical History Cardiac catherization (07/2010) Surgical History AICD insertion (11/2010) Surgical History right sided heart cath - [facility] 10/2013 Surgical History appendectomy Surgical History rt [...] rt. heart cath [facility]- [facility] 05/11/16 Hospitalization History Water retention/ [facility] 02/2017 Hospitalization History [facility] 11/2017 Hospitalization History INFECTION IN LEFT SMALL TOE AND FOOT 11/2018 Hospitalization History [facility] -- ICU -- COPD, SMAL L WOUND ON LEFT FOOT 12/2019 Hospitalization History COPD [facility] [place] 12/2019 Hospitalization History Ankle wound 01/2020 Hospitalization History COVID 11/2020 Hospitalization History A-FIB, CHF, KIDNEY ISSUE S 03/2021 [employer] Other 01-24-2023 Evaluation note* Encounter Date Diagnosis [...] findings with him by Shaw Rondon RN, [facility]. [employer] Other 01-23-2023 Reason for referral (narrative)* Reason 12/11/22 @ Irvin gonzalez to john per patient request Diagnosis 1 COPD (chronic obstru ctive pulmonary disease) (J44.9) Diagnosis 2 Athscl heart disease of chilkoot coronary artery w/o ang pctrs (I25.10) Diagnosis 3 Unspecified systolic (congestive) heart failure (I50.20) Referral Organization [facility] Family Mara Hodges Referring Provider First Name Vinnie Referring Provider Last Name Osvaldo Referring Provider Specialty Family Prac yamil Referred Organization [facility] Referred Address [address] [place],[address] Referred Provider Specialty Hospice and Palliative Medicine Referral Priority Routine Referral Appointment Date 2022-12-11 General Notes Doris Modi 09:13:40 AM >referral received and faxed. appt scheduled for 11:00am today. Doris Modi 12/13/2022 12:20:16 PM >faxed letter to obtain consult note Doris Modi 12/14/2022 07:21:24 AM >received VM from marilu lopez, she stated they saw pt, however; he told them he was not ready for comfort care and therefore did not sign on with hospice. Closing referral [employer] Other 12-27-2022 Evaluation note* Encounter Date Diagnosis Assessment Notes Treatment Notes Treatment Clinical Notes Oct, Lumbar and sacral arthritis (ICD-10 - M48.9) [employer] Other 12-20-2022 Evaluation note* Encounter Date Diagnosis [...] sugars noted also discharged on Farxiga and Caseyakbar had multiple days with both medications. We had applied for [employer] patient assistance it appears his Farxiga is [...] (ICD-10 - I10) f/u with pcp Oct, prison current use of insulin (ICD-10 - [...] and [employer] handout on hypoglycemia and treament. 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 heart cath [facility]- [facility] 05/11/16 Hospitalization History Water retention/ [facility] 02/2017 Hospitalization History [facility] 11/2017 Hospitalization History INFECTION IN LEFT SMALL TOE AND FOOT 11/2018 Hospitalization History [facility] -- ICU -- COPD, SMAL L WOUND ON LEFT FOOT 12/2019 Hospitalization History COPD [facility] [place] 12/2019 Hospitalization History Ankle wound 01/2020 Hospitalization History COVID 11/2020 Hospitalization History A-FIB, CHF, KIDNEY ISSUE S 03/2021 [employer] Other 11-10-2022 Evaluation note* Encounter Date Diagnosis [...] the goal and has adequate [employer] Other 11-10-2022 Evaluation note* Encounter Date Diagnosis [...] do not pop blisters. 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 S/sx of infection reviewed, if occur follow up right away with PCP, UC or ER. 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 heart cath [facility]- [facility] 05/11/16 Hospitalization History Water retention/ [facility] 02/2017 Hospitalization History [facility] 11/2017 Hospitalization History INFECTION IN LEFT SMALL TOE AND FOOT 11/2018 Hospitalization History [facility] -- ICU -- COPD, SMAL L WOUND ON LEFT FOOT 12/2019 Hospitalization History COPD [facility] [place] 12/2019 Hospitalization History Ankle wound 01/2020 Hospitalization History COVID 11/2020 Hospitalization History A-FIB, CHF, KIDNEY ISSUE S 03/2021 [employer] Other 10-26-2022 Evaluation note* Encounter Date Diagnosis [...] any worsening erythema, or with other concerns. 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 heart cath [facility]- [facility] 05/11/16 Hospitalization History Water retention/ [facility] 02/2017 Hospitalization History [facility] 11/2017 Hospitalization History INFECTION IN LEFT SMALL TOE AND FOOT 11/2018 Hospitalization History [facility] -- ICU -- COPD, SMAL L WOUND ON LEFT FOOT 12/2019 Hospitalization History COPD [facility] [place] 12/2019 Hospitalization History Ankle wound 01/2020 Hospitalization History COVID 11/2020 Hospitalization History A-FIB, CHF, KIDNEY ISSUE S 03/2021 [employer] Other 10-21-2022 Evaluation note* Encounter Date Diagnosis Assessment Notes Treatment Notes Treatment Clinical Notes Aug, Lumbar and sacral arthritis (ICD-10 - M48.9) [employer] Other 10-03-2022 History general Narrative - Reported* [...] rt. heart cath [facility]- [facility] 05/11/16 Hospitalization History Water retention/ [facility] 02/2017 Hospitalization History [facility] 11/2017 Hospitalization History INFECTION IN LEFT SMALL TOE AND FOOT 11/2018 Hospitalization History [facility] -- ICU -- COPD, SMAL L WOUND ON LEFT FOOT 12/2019 Hospitalization History COPD [facility] [place] 12/2019 Hospitalization History Ankle wound 01/2020 Hospitalization History COVID 11/2020 Hospitalization History A-FIB, CHF, KIDNEY ISSUE S 03/2021 [employer] Other 09-12-2022 Evaluation note* Encounter Date Diagnosis [...] (ICD-10 - I10) f/u with pcp Jul, molder 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 [employer] Other 08-04-2022 History general Narrative - Reported* [...] rt. heart cath [facility]- [facility] 05/11/16 Hospitalization History Water retention/ [facility] 02/2017 Hospitalization History [facility] 11/2017 Hospitalization History INFECTION IN LEFT SMALL TOE AND FOOT 11/2018 Hospitalization History [facility] -- ICU -- COPD, SMAL L WOUND ON LEFT FOOT 12/2019 Hospitalization History COPD [facility] [place] 12/2019 Hospitalization History Ankle wound 01/2020 Hospitalization History COVID 11/2020 Hospitalization History A-FIB, CHF, KIDNEY ISSUE S 03/2021 [employer] Other 08-02-2022 Evaluation note* Encounter Date Diagnosis Assessment Notes Treatment Notes Treatment Clinical Notes Jun, Community acquired pneumonia, unspecified laterality (ICD-10 - J18.9) He will complete the antibiotics and call with any worsening symptoms. I also advised him to call with any worsening diarrhea Jun, COPD (chronic obstructive pulmonary disease) (ICD-10 - J44.9) [employer] Other 08-02-2022 History general Narrative - Reported* [...] rt. heart cath [facility]- [facility] 05/11/16 Hospitalization History Water retention/ [facility] 02/2017 Hospitalization History [facility] 11/2017 Hospitalization History INFECTION IN LEFT SMALL TOE AND FOOT 11/2018 Hospitalization History [facility] -- ICU -- COPD, SMAL L WOUND ON LEFT FOOT 12/2019 Hospitalization History COPD [facility] [place] 12/2019 Hospitalization History Ankle wound 01/2020 Hospitalization History COVID 11/2020 Hospitalization History A-FIB, CHF, KIDNEY ISSUE S 03/2021 [employer] Other 07-27-2022 Progress note Author Ethan Cummings [facility] June 13, 2022 10:16pm Note Date/Time June 06, 2022 11:[address] [place] [address] Cancer Center at [address] [address] Hem/Onc Follow Up Note - OP Signed Patient: Adwoa Porter MR#: [id number] : 1955 Acct:[id number] Age/Sex: 66 / M Type: REG RCR [...] hs BCR/ABL was negative. Recent hospitalization at [facility] for COVID PNA. He had also a [...] for coordination of care (as documented) and urqx-pa-yqzm counseling of patient and/or family. [facility] - Medical History Medical History: Medical [...] Home Medications and Allergies Allergies/Adverse Reactions: Allergies LUPIS Inhibitors Adverse Reaction (Verified 04/10/22 14:49) Cough [...] signed by Ethan Cummings II, DO> 06/13/22 1012 [facility] Work Phone: 1(691) 390-747606-28-2022 History general Narrative - Reported* Type Description [...] rt. heart cath Rex Stout- [facility] 05/11/16 Hospitalization History Water retention/ [facility] 02/2017 Hospitalization History [facility] 11/2017 Hospitalization History INFECTION IN LEFT SMALL TOE AND FOOT 11/2018 Hospitalization History [facility] -- ICU -- COPD, SMAL L WOUND ON LEFT FOOT 12/2019 Hospitalization History COPD [facility] [place] 12/2019 Hospitalization History Ankle wound 01/2020 Hospitalization History COVID 11/2020 Hospitalization History A-FIB, CHF, KIDNEY ISSUE S 03/2021 [employer] Other 06-08-2022 Evaluation note* Encounter Date Diagnosis Assessment Notes Treatment Notes Treatment Clinical Notes Apr, Type 2 diabetes mellitus with hyperglycemia (ICD-10 - E11.65) [employer] Other 06-06-2022 Evaluation note* Encounter Date Diagnosis Assessment Notes Treatment Notes Treatment Clinical Notes Apr, Acute on chronic systolic congestive heart failure (ICD-10 - I50.23) [employer] Other 05-23-2022 Progress note Author Ethan Cummings [facility] April 10, 2022 3:31pm Note Date/Time April 10, 2022 2:42p m [facility] [place] [address] Hem/Onc Follow Up Note - OP Signed Patient: Adwoa Porter MR#: [id number] : 1955 Acct:[id number] Age/Sex: 66 / M Type: REG RCR [...] for coordination of care (as documented) and [id number] counseling of patient and/or family. [facility] - Medical History Medical History: Medical [...] Home Medications and Allergies Allergies/Adverse Reactions: Allergies LUPIS Inhibitors Adverse Reaction (Verified 04/10/22 14:49) Cough Dictated By: Ethan Cummings II, DO DD/ 1441 Signed By: <Electronically signed by Ethan Cummings II, DO> 04/10/22 1531 [facility] Work Phone: [phone]) 446-150804-29-2022 Evaluation note* Encounter Date Diagnosis Assessment Notes Treatment Notes Treatment Clinical Notes Feb, Facet arthritis of lumbar region (ICD-10 - M46.96) [employer] Other 04-14-2022 Evaluation note* Encounter Date Diagnosis [...] 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 Follow up with your primary care physciain tomorrow for further testing. Go to the ER for worsening symptoms or concerns. [employer] Other 03-22-2022 Evaluation note* Encounter Date Diagnosis [...] overload caused by recurring apneas are controlled. [employer] Other 02-23-2022 Evaluation note* Encounter Date Diagnosis [...] (ICD-10 - I10) f/u with pcp Dec, molder current use of insulin (ICD-10 - Z79.4) [...] was counseling done by myself, Tyesha JUDD. [employer] Other 01-10-2022 Evaluation note* Encounter Date Diagnosis Assessment Notes Treatment Notes Treatment Clinical Notes Nov, Type 2 diabetes mellitus with hyperglycemia (ICD-10 - E11.65) [employer] Other 12-29-2021 Evaluation note* Encounter Date Diagnosis [...] (ICD-10 - I10) f/u with pcp Oct, prison current use of insulin (ICD-10 - Z79.4) Oct, Vitamin B 12 deficiency (ICD-10 - E53.8) Oct, CKD (chronic kidney disease) stage 3, GFR 30-59 ml/min (ICD-10 - N18.3) keep f/u with nephrology Oct, Type 2 diabetes mellitus with diabetic neuropathy, unspecified (ICD-10 - E11.40) Oct, Hypoglycemia (ICD-10 - E16.2) BENEFIT FROM LIBRE[employer] with alarms, ordered thru [employer]. discussion and [employer] handout on hypoglycemia and treament. Oct, BMI 35.0-35.9,adult (ICD-10 - Z68.35) Oct, Other I have spent 30 minutes with this patient and over 50% of the visit was counseling done by myself, Tyesha JUDD. [employer] Other 11-17-2021 Evaluation note* Encounter Date Diagnosis [...] (ICD-10 - I10) f/u with pcp Sep, prison current use of insulin (ICD-10 - [...] added weight loss benefit, increased glycemic control [employer] Other 11-08-2021 Evaluation note* Encounter Date Diagnosis [...] include pain management referral or physical therapy [employer] Other 05-31-2021 NoteMR#: [id number] [facility] Pt. Name: Adwoa Porter Admitted: 04/12/2021 Discharged: 04/17/2021 Date of : 1955 Physician: Balbir Stubbs MD DISCHARGE SUMMARY PRINCIPAL DISCHARGE DIAGNOSES: 1. Czogr-lj-peyzxoa heart failure with reduced ejection fraction. 2. [...] heart failure. The patient was transferred to [facility] on a bumetanide infusion. He was [...] If strongly occurs, follow up with his first aid instructor as soon as possible. 3. The patient was strongly encouraged to consider acute rehab, however, he declined and insisted on returning to home. Total time spent on discharge coordination 45 minutes. Electronically Signed by: Balbir Stubbs MD 04/27/2021 01:19 P Balbir Stubbs MD Date Dict: 04/17/2021/03:44 P/Balbir Stubbs MD Date Trans: 04/18/2021 12:53 A/nena [id number] cc: Vinnie Stewart M.D. [facility] [address] [facility] [address] Lowell Craft M.D. [facility] [place] [facility] [address]KjhProtestant HospitalDischarge summary Author Yakov To [facility] February 15, 2023 2:13pm Note Date/Time February 15, 2023 2:1 3pm [facility] [address] [place] [address] Discharge Summary Signed Patient: Adwoa Porter MR#: [id number] : 1955 Acct:[id number] Age/Sex: 67 / M Adm Date: 3 Loc: Room: [address] [place] [address]: Yakov To DO Copies to: DO Vinnie Perry, DO~ Providers Date of Admission: 02/13/23 Date [...] blood sugars and low potassium by his first aid instructor. Upon arrival to the hospital his blood [...] signed by Yakov To DO> 02/15/23 1413 [facility] Work Phone: Discharge summary Author Swathi Burnham [facility] February 07, 2024 6:54pm Note Date/Time February 07, 2024 6:5 4pm [facility] [address] [place] [address] Discharge Summary Signed Patient: Adwoa Porter MR#: [id number] : 1955 Acct:[id number] Age/Sex: 68 / M Adm Date: 4 Loc: Room: [address] [place] [address]: Swathi Burnham MD Copies to: MD Vinnie Lopez DO~ Providers Date of Discharge: 02/07/24 Discharging Provider: Swathi Burnham Primary Care Provider: Vinnie Stewart Consults: 01/28/24 20:15 Consult to Nephrology Routine Comment: Consulting Provider: Lia Law Has Provider Been Notified: Yes Date of Notification: 01/29/24 Time of Notification: 07:12 Reason for Consult: Acute Kidney Injury 01/28/24 21:18 Consult to Infectious Diseases Routine Comment: Consulting Provider: Farhan Schofield Reason For Exam: Cellulitis, presumed MDRO Has Provider Been Notified: Yes Date of Notification: 01/29/24 Time of Notification: 07:05 01/29/24 10:03 Consult to Podiatry Routine Comment: Consulting Provider: Valentin Valle Reason For Exam: Patient known to you left foot open wound Has Provider Been Notified: Yes Date of Notification: 01/29/24 Time of Notification: 13:35 01/29/24 15:12 Consult to Vascular Surgery Routine Comment: Consulting Provider: Raul Bravo Reason For Exam: necrotic wound left foot, eschar on toe left foot Has Provider Been Notified: Yes Date of Notification: 01/29/24 Time of Notification: 15:38 Extended Comment: See if patient has adequate perfusion to left foot for wound healing. 01/30/24 14:25 Consult to Vascular Surgery Routine Comment: Consulting Provider: [facility] - Vascular Surgery Reason For Exam: tunneled cath placement Has Provider Been Notified: Yes Date of Notification: 01/30/24 Time of Notification: 14:47 02/04/24 11:26 Consult to Physical Therapy Routine Comment: Physician Instructions: Consult to PT for:: Evaluation and Treat 02/04/24 11:27 Consult to Occupational Therapy Routine Comment: Physician Instructions: Consult to OT for:: Evaluation and Treat Discharge Diagnosis (1) SHIRA (acute kidney injury): (2) Hyponatremia: (3) Hyperkalemia: (4) Metabolic acidosis: (5) Cellulitis of lower leg: (6) Type 2 diabetes mellitus with diabetic chronic kidney disease: (7) Hypertensive chronic kidney disease with stage 1 through stage 4 chronic kidney disease, or unspecified chronic kidney disease: Final Diagnosis Final Discharge Diagnosis: Oliguric acute kidney injury due to ATN due to suspected amikacin toxicity, new dialysis initiated through the right IJ permanent dialysis catheter which was placed during this admission Left diabetic foot infection associated with cellulitis and osteomyelitis, discharged on linezolid p.o. with follow-up CBCs on weekly basis and Invanz IV for total of 6 weeks of therapy through PICC line Diabetes mellitus type 2, insulin dose decreased due to acute kidney injury requiring dialysis Paroxysmal atrial fibrillation Eliquis therapy was resumed at a lower dose due to anemia Chronic systolic congestive heart failure with reduced ejection fraction, statuspost previous ICD placement, compensated Acute hypoxic respiratory insufficiency due to suspected hypervolemia, improved after dialysis COPD, stable Hypertension Anemia suspected due to acute inflammation and underlying kidney dysfunction, with iron studies consistent with chronic disease anemia, will be followed by nephrology team as outpatient, without any active signs of bleeding, no transfusion required Hyperkalemia due to acute kidney injury/ATN, resolved Peripheral tibial disease status post angiogram was performed with left femoralartery BD Rotarex rotational atherectomy and thrombectomy with angioplasty Summary Hospital Course Hospital course: 68 years old female with multiple medical problems, who was recently hospitalized at [facility] and discharged on January 22 to longterm care facility after being treated for septic shock secondary to cellulitis and left foot ulcer. Patient was discharged on IV antibiotic therapy including amikacin for polymicrobial growth from the wound VAC and PICC line. From longterm facility he was sent to emergency room back to [facility] for abnormal labs and worsening of kidney function. Patient was found to have hyperkalemia with potassium 5.8, sodium 124 and creatinine 4.9 with BUN 97. Patient was transferred here for further evaluation and treatment. Upon admission patient was started on Rocephin and linezolid therapy. Amikacin was put on held. Suspected oliguric acute kidney injury due to amikacin causing ATN. Patient's baseline creatinine was 1.4. Temporal hemodialysis was placed by pulmonology and patient underwent dialysis. ID was consulted and recommendedantibiotics to be switched to linezolid which was switched to p.o. on discharge and ertapenem IV, to continue total 6 weeks due to suspected underlying osteomyelitis. CBC to follow-up for pancytopenia while on linezolid was orderedon weekly basis. Patient also recommended to follow-up with podiatry at [facility]. Vascular was consulted and permanent central venous dialysis catheter was placedvia right internal jugular approach. Due to suspected peripheral arterial disease, causing left foot ulcer angiogram was performed with left femoral artery BD Rotarex rotational atherectomy and thrombectomy with angioplasty. Occluded left femoral artery, occluded left anterior tibialis, the abdominal aorta and iliac vessels were all widely patent with no flow-limiting lesions. The common femoral and profunda femoris arteries were widely patent with no flow-limiting lesions bilaterally. Patient may need tibial recanalization depending on blood supply after this procedure and recommended to follow-up On the day of discharge patient was doing quite well. He denied any shortness of breath any cough. He did require 2 L nasal cannula. He complained of the pain in lower extremities. He denies any abdominal pain. No nausea no vomitingno diarrhea. He was evaluated by PT OT and discharged to longterm facility for furthertreatment. Hemodialysis sessions were arranged as outpatient. Physical exam: General -awake, alert, oriented ?3, not in acute distress Cardiovascular -S1 with S2, no murmurs, no rubs, no gallops Right permanent dialysis catheter noted on the right upper chest Pulmonary - c diminished breath sounds bilaterally Gastrointestinal - abdomen is soft, nondistended, nontender, bowel sounds positive, there is no rigidity, no rebound Extremities -bilateral feet in dressing Neurological -no focal neurological dysfunction noted L the patient CARE and further plan was discussed with the patient. All questions answered. Patient expressed understanding and was discharged to longterm facility in a stable condition. The patient was given written and verbal instructions. The recommendations were made to follow-up as outpatient within one week.The patient was informed if his symptoms get worse togo back to emergency room or call his primary care physician office. Time spent on the discharge day 35 min. Time Spent with Patient Time spent providing/coordinating discharge services (# min): 35 Surgeries and Procedures Operation Date: 01/31/24 13:35 Actual Procedures p IR Catheter Dialysis Insertion(Right) - Raul Bravo MD Operation Date: 02/04/24 08:05 Actual Procedures p IR Aortogram W/Runoff, Left SFA Atherectomy & TLA(Left) - Raul Bravo MD Exam Physical Exam Vital Signs: Temp Pulse Resp BP Pulse Ox O2 Del Method O2 Flow Rate 36.2 C L 85 18 138/80 100 Nasal Cannula 2 02/05/24 16:00 02/05/24 16:00 02/05/24 16:00 02/05/24 16:00 02/05/24 16:00 02/05/24 16:00 02/05/24 08:45 FiO2 10 02/01/24 11:52 Discharge Plan Discharge Plan [facility] Disposition[facility] Activity: Bed Rest Diet: Renal, Carb Count and Low-Sodium Additional Instructions: [facility] to manage: - Full code - PT/OT to eval and treat - Routine vital signs - ACHS fingersticks - Monitor Skin assessment: multiple wounds - Monitor for signs and symptoms of infections: infected wound/cellulitis - Monitor assessment: SHIRA/CKD, new HD - Monitor Cardio and Respiratory assessment: CHF, Afib, COPD - HS BiPAP settings: 14/10, titrate to keep O2 above 90% - Off load heels, Q2 check and change - Maintain HD tunnel cath: Placed 01/31/24. Dialysis Catheters: Sterile Occlusive dressing after each treatment. - Maintain PICC line: Placed on 01/22/24. Dressing to be changed Q7D. Last changed 02/02/24. - Dialysis Sunday, Sunday, Sunday - Check CBC and renal function panel in a.m. prior to hemodialysis to adjust order as needed - Dressing change daily: - left foot- allow vashe moistened gauze soak on wound bed for 5 min., wipe free loose debris, apply therahoney sheet, fill wound depth with super sponges, abd pad and secure with kerlix - right heel- paint with betadine, let dry, abd pad and kerlix - Hands/fingers, eschar toes- paint with betadine - BID/PRN: bilateral buttocks, groin folds- redness denuded skin related to moisture and diarrhea- use theraworx protect foam then zinc ointment - Maintain high risk falls precautions - Care to be managed by SNF provider Instructions: Peripheral artery disease and claudication, How to Care for a Central Line Catheter, Heart Failure, Adult (DC), Alternatives to a Central Line, How to Prevent Central Line Infections, Dialysis Catheter (DC) Stand Alone Forms: Insulin Corrective Scale #1 Prescriptions: New Eliquis 2.5 mg Tablet 2.5 mg PO BID Qty: 0 0RF calcitriol [Rocaltrol] 0.25 mcg Capsule 0.25 mcg PO MoWeFr@0900 Qty: 0 0RF insulin aspart U-100 [Novolog FlexPen U-100 Insulin] 100 unit/mL (3 mL) Insulin Pen 1 unit subcut TID.WM.HS Qty: 0 0RF Rx Instructions: see protocol Ertapenem [INVanz] 0.5 GM Sodium Chloride 0.9% 100 ml [0.9% Sodium Chloride 100 ml] 100 ML 200 mls/hr IV Q24H Ordered By: Swathi Burnham MD Last Taken: 02/05/24 15:02 200 mls/hr linezolid 600 mg Tablet 600 mg PO BID 35 Days Qty: 70 0RF nystatin [Nystop] 100,000 unit/gram Powder 1 applic topical QID Qty: 0 0RF hydrocodone-acetaminophen 5-325 mg tablet 1 tab PO TID PRN (Reason: pain) 3 Days Qty: 9 0RF Continued atorvastatin 80 mg Tablet 80 mg PO DAILY albuterol sulfate 2.5 mg /3 mL (0.083 %) Solution For Nebulization 2.5 mg INHALATION Q4H PRN (Reason: breathing) aspirin 81 mg Tablet,Delayed Release (Dr/Ec) 81 mg PO DAILY amitriptyline 25 mg Tablet 25 mg PO QHS isosorbide dinitrate 20 mg Tablet 20 mg PO BID nitroglycerin [Nitrostat] 0.4 mg Tablet, Sublingual 0.4 mg sublingual DIRECTED PRN (Reason: Chest Pain) hydralazine 50 mg Tablet 50 mg PO TID albuterol sulfate 90 mcg/actuation Hfa Aerosol Inhaler 2 puff INHALATION Q4H PRN (Reason: breathing) budesonide-formoterol [Symbicort] 160-4.5 mcg/actuation Hfa Aerosol Inhaler 2 puff INHALATION BID cholecalciferol (vitamin D3) [Vitamin D3] 50 mcg (2,000 unit) Tablet 50 mcg PO DAILY cyanocobalamin (vitamin B-12) [Vitamin B-12] 1,000 mcg Tablet 1,000 mcg PO DAILY Qty: 30 6RF ferrous sulfate 325 mg (65 mg iron) Tablet 325 mg PO DAILY Qty: 30 6RF levothyroxine 50 mcg tablet 50 mcg PO DAILY Changed carvedilol 25 mg Tablet 12.5 mg PO BID Qty: 60 0RF gabapentin 400 mg Capsule 200 mg PO BID Qty: 30 0RF insulin glargine [Basaglar KwikPen U-100 Insulin] 100 unit/mL (3 mL) Insulin Pen 8 unit SUBCUT QAM Qty: 30 0RF Discontinued hydrocodone-acetaminophen 5-325 mg Tablet 1 tab PO TID PRN (Reason: Pain) spironolactone 25 mg Tablet 25 mg PO DAILY warfarin 5 mg Tablet 5 mg PO DIRECTED bumetanide 1 mg Tablet 2 mg PO BID digoxin 125 mcg (0.125 mg) Tablet 125 mcg PO DAILY Humalog KwikPen Insulin 200 unit/mL (3 mL) Insulin Pen See Rx Instructions .ROUTE .COMPLEX Rx Instructions: small meals-34 units, medium meal--36 units, large meal--30 units TID Trulicity 4.5 mg/0.5 mL Pen Injector See Rx Instructions .ROUTE .COMPLEX Rx Instructions: take as directed metolazone 2.5 mg tablet 2.5 mg PO QWEEK Patient Comments: TAKE 1 TABLET BY MOUTH EVERY 7 DAYS furosemide 20 mg tablet 60 mg PO BID Hold Instructions: Hold until seen by Nephrology Patient Comments: TAKE 3 TABLETS BY MOUTH ONCE DAILY IN THE EVENING dapagliflozin propanediol [Farxiga] 10 mg tablet 10 mg PO DAILY Patient Comments: TAKE 1 TABLET BY MOUTH ONCE DAILY potassium chloride [Klor-Con 10] 10 mEq Tablet Extended Release 20 meq PO DAILY Qty: 14 0RF linezolid in dextrose 5% 600 mg/300 mL piggyback 600 mg IV Q12HR amikacin 500 mg/2 mL solution 250 mg IM Q12HR warfarin 2.5 mg tablet 2.5 mg PO QPM ceftriaxone 1 gram recon soln 1 g IV DAILY Other Ambulatory Orders: Complete Blood Count Auto Diff (QWEEK) Timeframe: 20240212 Location: Determined by Patient Ordered By: Swathi Burnham Complete Blood Count Auto Diff (QWEEK) Timeframe: 20240219 Location: Determined by Patient Ordered By: Swathi Burnham Complete Blood Count Auto Diff (QWEEK) Timeframe: 20240226 Location: Determined by Patient Ordered By: Swathi Burnham Complete Blood Count Auto Diff (QWEEK) Timeframe: 20240304 Location: Determined by Patient Ordered By: Swathi Burnham Complete Blood Count Auto Diff (QWEEK) Timeframe: 20240311 Location: Determined by Patient Ordered By: Swathi Burnham Complete Blood Count Auto Diff (QWEEK) Timeframe: 20240318 Location: Determined by Patient Ordered By: Swathi Burnham Follow Up: Farhan Schofield MD [Active Staff] - Jorge Arroyo DPM, MS [Referring] - (The office is unavailable at this time. Please call to make a follow up appointment to see Podiatry.) Raul Bravo MD [Active Staff] - 03/06/24 8:00 am (Please call the office to reschedule this appointment if this time does not work for you. Please call with additional questions or concerns. Thank you. You had a left leg intervention scheduled for SundayFebruary 03. You will follow-up in our officeon March 06. March 06 appointment is at 8 AM with ultrasound in our office and seeing the provider after the ultrasound. ) Lia Law MD [Active Staff] - Documented By: Swathi Burnham MD 02/07/24 7588 Signed By: <Electronically signed by Swathi Burnham MD> 02/07/24 1864 [facility] Work Phone: Evaluation noteNo InformationNouniversity health [facility] [employer] Other Evaluation note* Diagnosis Onset Date Resolution Status Leukocytosis acute [facility] Work Phone: Evaluation note* Diagnosis Onset Date Resolution Status Leukocytosis acute SHIRA (acute kidney injury) [place] Cardiomyopathy acute Elevated serum creatinine [place] Elevated troponin acute Hyperglycemia acute Hypokalemia acute Hyponatremia acute Metabolic alkalosis with respiratory acidosis acute CKD (chronic kidney disease) stage 3, GFR 30-59 ml/min chronic 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 Paroxysmal A-fib chronic [facility] Work Phone: Evaluation noteNo assessment information available [facility] Work Phone: Evaluation note* Diagnosis Onset Date Resolution Status Acute kidney injury superimposed on CKD acute SHIRA (acute kidney injury) [place] Cellulitis of lower leg acut e Chronic ulcer of left foot with necrosis of muscle acute Controlled type 2 diabetes m ellitus with diabetic polyneuropathy acute Hyperkalemia acute [id number] acute Hyponatremia acute Infected wound acute Leukocytosis acute Metabolic acidosis acute Surgical wound, non healing acute Type 2 diabetes mellitus wit h diabetic chronic kidney disease acute 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 acute Diabetes chronic [facility] Work Phone: History and physical note Author Yakov To [facility] February 13, 2023 9:35pm Note Date/Time February 13, 2023 9:2 3pm [facility] [address] [place] [address] Hospitalist H&P Signed Patient: Adwoa Porter MR#: [id number] : 1955 Acct:[id number] Age/Sex: 67 / M Adm Date: 3 Loc: Room: [address] [place] [address] Type: ADM IN Attending Dr: Yakov To [...] in the 500 range, he saw his first aid instructor today and because he knew his glucose [...] Promise (friend) Meds Medications and Allergies Allergies LUPIS Inhibitors Adverse Reaction (Verified 02/13/23 15:44) Cough [...] % (Auto) 17.7 % (.) 02/13/23 16:49 Meagher % (Auto) 8.0 % (.) 02/13/23 16:49 Eos % (Auto) 2.9 % (.) 02/13/23 16:49 Baso % (Auto) 0.6 % (.) 02/13/23 16:49 Nucleat RBC Rel Count 0.1 /100 WBC (0-0.5) 02/13/23 16:49 Neut # (Auto) 8.5 x10E3/uL (1.8-7.7) H 02/13/23 16:49 Lymph # (Auto) 2.1 x10E3/uL (1.00-4.8) 02/13/23 16:49 Meagher # (Auto) 1.0 x10E3/uL (0.0-0.8) H 02/13/23 [...] pH 6.0 (5.0-9.0) 02/13/23 15:49 Ur Specific [place] 1.018 (1.001-1.030) 02/13/23 15:49 Urine Protein Negative [...] <Electronically signed by Yakov To, DO> 02/13/232134 [facility] Work Phone: Hisqprm general Narrative - Reported* Type Description Date [...] rt. heart cath Rex Stout- [facility] 05/11/16 Hospitalization History Water retention/ [facility] 02/2017 Hospitalization History Observation-[facility] 11/2017 Hospitalization History INFECTION IN LEFT SMALL TOE AND FOOT 11/2018 Hospitalization History [facility] -- ICU -- COPD, SMAL L WOUND ON LEFT FOOT 12/2019 Hospitalization History COPD [facility] [place] 12/2019 Hospitalization History Ankle wound 01/2020 Hospitalization History COVID 11/2020 Hospitalization History A-FIB, CHF, KIDNEY ISSUE S 03/2021 [employer] Other Hiscygx general Narrative - Reported* Type Description Date [...] rt. heart cath Rex Stout- [facility] 05/11/16 Hospitalization History Water retention/ [facility] 02/2017 Hospitalization History Observation-[facility] 11/2017 Hospitalization History INFECTION IN LEFT SMALL TOE AND FOOT 11/2018 Hospitalization History [facility] -- ICU -- COPD, SMAL L WOUND ON LEFT FOOT 12/2019 Hospitalization History COPD [facility] [place] 12/2019 Hospitalization History Ankle wound 01/2020 Hospitalization History COVID 11/2020 Hospitalization History A-FIB, CHF, KIDNEY ISSUE S 03/2021 [employer] Other History general Narrative - Reported* Type [...] Medical History [facility] Medical History 04/28/2022 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 failure w/hypoxia, acute on systolic chronic HF Surgical History Cardiac catherization (07/2010) Surgical History AICD insertion (11/2010) Surgical History right sided heart cath - [facility] 10/2013 Surgical History appendectomy Surgical History rt [...] rt. heart cath Rex Stout- [facility] 05/11/16 Hospitalization History Water retention/ [facility] 02/2017 Hospitalization History Observation-[facility] 11/2017 Hospitalization History INFECTION IN LEFT SMALL TOE AND FOOT 11/2018 Hospitalization History [facility] -- ICU -- COPD, SMAL L WOUND ON LEFT FOOT 12/2019 Hospitalization History COPD [facility] [place] 12/2019 Hospitalization History Ankle wound 01/2020 Hospitalization History COVID 11/2020 Hospitalization History A-FIB, CHF, KIDNEY ISSUE S 03/2021 [employer] Other History general Narrative - Reported* Type [...] Medical History [facility]IG[facility] Medical History 04/28/2022 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 heart cath Rex Stout- [facility] 05/11/16 Hospitalization History Water retention/ [facility] 02/2017 Hospitalization History Observation-[facility] 11/2017 Hospitalization History INFECTION IN LEFT SMALL TOE AND FOOT 11/2018 Hospitalization History [facility] -- ICU -- COPD, SMAL L WOUND ON LEFT FOOT 12/2019 Hospitalization History COPD [facility] [place] 12/2019 Hospitalization History Ankle wound 01/2020 Hospitalization History COVID 11/2020 Hospitalization History A-FIB, CHF, KIDNEY ISSUE S 03/[address] 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 failure w/hypoxia, acute on systolic chronic HF Medical History [facility]- r ight great toe bleeding (not stopping) Surgical History Cardiac catherization (07/2010) Surgical History AICD insertion (11/2010) Surgical History right sided heart cath - [facility] 10/2013 Surgical History appendectomy Surgical History rt [...] rt. heart cath Rex Stout- [facility] 05/11/16 Hospitalization History Water retention/ [facility] 02/2017 Hospitalization History Observation-[facility] 11/2017 Hospitalization History INFECTION IN LEFT SMALL TOE AND FOOT 11/2018 Hospitalization History [facility] -- ICU -- COPD, SMAL L WOUND ON LEFT FOOT 12/2019 Hospitalization History COPD [facility] [place] 12/2019 Hospitalization History Ankle wound 01/2020 Hospitalization History COVID 11/2020 Hospitalization History A-FIB, CHF, KIDNEY ISSUE S 03/[address] [facility] 01/2023 Hospitalization History [facility] discha rged 03-27-2023 [employer] Other History general Narrative - Reported* Type Description Date Medical History Triple vessel CAD Medical History ischemic cardiomyopa thy with ejection fraction 10-15% Medical History Cardiac arrythmias with insertio n of AICD device Medical History hypertension Medical History hyperlipidemia Medical History NIDDM Medical History COPD Medical History nicotine dependence Medical History cervical spinal stenosis Medical History hoarseness - mass removed by Dr. 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 failure w/hypoxia, acute on systolic chronic HF Medical History [facility]- r ight great toe bleeding (not stopping) Medical History pneumonia-[facility] 06-05 Medical History [facility]-7-2023 Surgical History Cardiac catherization (07/2010) Surgical [...] rt. heart cath Rex Stout- [facility] 05/11/16 Hospitalization History Water retention/ [facility] 02/2017 Hospitalization History Observation-[facility] pital 11/2017 Hospitalization History INFECTION IN LEFT SMALL TOE AND FOOT 11/2018 Hospitalization History [facility] -- ICU -- COPD, SMAL L WOUND ON LEFT FOOT 12/2019 Hospitalization History COPD [facility] [place] 12/2019 Hospitalization History Ankle wound 01/2020 Hospitalization History COVID 11/2020 Hospitalization History A-FIB, CHF, KIDNEY ISSUE S 03/[address] 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 failure w/hypoxia, acute on systolic chronic HF Medical History [facility]- r ight great toe bleeding (not stopping) Medical History pneumonia-[facility] 06-05 Medical History [facility]-7-2023 Medical History [id number]-[facility] Surgical History Cardiac catherization (07/2010) Surgical History AICD insertion (11/2010) Surgical History right sided heart cath - [facility] 10/2013 Surgical History appendectomy Surgical History rt [...] heart cath D Addy Stout- [facility] 05/11/16 Hospitalization History Water retention/ [facility] 02/2017 Hospitalization History Observation-[facility] 11/2017 Hospitalization History INFECTION IN LEFT SMALL TOE AND FOOT 11/2018 Hospitalization History [facility] -- ICU -- COPD, SMAL L WOUND ON LEFT FOOT 12/2019 Hospitalization History COPD [facility] [place] 12/2019 Hospitalization History Ankle wound 01/2020 Hospitalization History COVID 11/2020 Hospitalization History A-FIB, CHF, KIDNEY ISSUE S 03/[address] 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 failure w/hypoxia, acute on systolic chronic HF Medical History [facility]- r ight great toe bleeding (not stopping) Medical History pneumonia-[facility] 06-05 Medical History [facility]-7-2023 Medical History [id number]-[facility] Surgical History Cardiac catherization (07/2010) Surgical History AICD insertion (11/2010) Surgical History right sided heart cath - [facility] 10/2013 Surgical History appendectomy Surgical History rt [...] rt. heart cath Rex Stout- [facility] 05/11/16 Hospitalization History Water retention/ [facility] 02/2017 Hospitalization History Observation-[facility] 11/2017 Hospitalization History INFECTION IN LEFT SMALL TOE AND FOOT 11/2018 Hospitalization History [facility] -- ICU -- COPD, SMAL L WOUND ON LEFT FOOT 12/2019 Hospitalization History COPD [facility] [place] 12/2019 Hospitalization History Ankle wound 01/2020 Hospitalization History COVID 11/2020 Hospitalization History A-FIB, CHF, KIDNEY ISSUE S 03/[address] 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 failure w/hypoxia, acute on systolic chronic HF Medical History [facility]- r ight great toe bleeding (not stopping) Medical History pneumonia-[facility] 06-05 Medical History [facility]-7-2023 Medical History [id number]-[facility] Medical History NON RESPONSIVE X 2 [...] rt. heart cath Rex Stout- [facility] 05/11/16 Hospitalization History Water retention/ [facility] 02/2017 Hospitalization History Observation-[facility] pital 11/2017 Hospitalization History INFECTION IN LEFT SMALL TOE AND FOOT 11/2018 Hospitalization History [facility] -- ICU -- COPD, SMAL L WOUND ON LEFT FOOT 12/2019 Hospitalization History COPD [facility] [place] 12/2019 Hospitalization History Ankle wound 01/2020 Hospitalization History COVID 11/2020 Hospitalization History A-FIB, CHF, KIDNEY ISSUE S 03/[address] [facility] [place]/2023 Hospitalization History [facility] discha rged 03-27-2023 Hospitalization History [facility] x2 7-2 023 Hospitalization History RSV-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 failure w/hypoxia, acute on systolic chronic HF Medical History [facility]- r ight great toe bleeding (not stopping) Medical History pneumonia-[facility] 06-05 Medical History [facility]-7-2023 Medical History [id number]-[facility] Medical History NON RESPONSIVE X 2 IN THE LAST 6 WEEKS Surgical History Cardiac catherization (07/2010) Surgical History AICD insertion (11/2010) Surgical History right sided heart cath - [facility] 10/2013 Surgical History appendectomy Surgical History rt [...] rt. heart cath Rex Stout- [facility] 05/11/16 Hospitalization History Water retention/ [facility] 02/2017 Hospitalization History Observation-[facility] 11/2017 Hospitalization History INFECTION IN LEFT SMALL TOE AND FOOT 11/2018 Hospitalization History [facility] -- ICU -- COPD, SMAL L WOUND ON LEFT FOOT 12/2019 Hospitalization History COPD [facility] [place] 12/2019 Hospitalization History Ankle wound 01/2020 Hospitalization History COVID 11/2020 Hospitalization History A-FIB, CHF, KIDNEY ISSUE S 03/[address] [facility] [place]/2023 Hospitalization History [facility] discha rged 03-27-2023 Hospitalization History [facility] x2 7-2 023 Hospitalization History [facility] 10-2 023 Hospitalization History [facility] rib fx left Hospitalization History [facility] -pnemo jennifer [employer] Other progress note Author Ethan Cummings [facility] December 04, 2022 1:47pm Note Date/Time December 04, 2022 1 :44pm [facility] at [address] [address] Hem/Onc Follow Up Note - OP Signed Patient: Adwoa Porter MR#: [id number] : 1955 Acct:[id number] Age/Sex: 67 / M Type: REG RCR [...] hs BCR/ABL was negative. Recent hospitalization at [facility] for COVID PNA. He had also a [...] for coordination of care (as documented) and [id number] counseling of patient and/or family. [facility] - Medical History Medical History: Medical [...] % (Auto) 67.1, Lymph % (Auto) 20.5, Meagher % (Auto) 8.2, Eos % (Auto) 3.5, Baso % (Auto) 0.7, Nucleat RBC Rel Count 0.1, Neut # (Auto) 7.9 H, Lymph # (Auto) 2.4, Meagher # (Auto) 1.0 H, Eos # (Auto) 0.4, Baso # (Auto) 0.1 - Home Medications and Allergies Allergies/Adverse Reactions: Allergies LUPIS Inhibitors Adverse Reaction (Verified 12/04/22 13:05) Cough [...] dulaglutide 4.5 mg/0.5 mL subcutaneous pen injector ([facility]) See Rx Instructions .Route .COMPLEX 04/10/22 [History [...] by Ethan Cummings II, DO> 12/04/22 1347 [facility] Work Phone: Advance Directives No Advanced Directives Records Found Advance Directive Response Recorded Date/ Time Advance Directives No July 2:42pm Advance Directive Response Recorded Date/ Time Advance Directives No July 1:42pm Chief Complaint and Reason for Visit Chief Complaint Right great toe woun d Reason for Visit Cellulitis of left t oe Controlled type 2 diabetes mellitus with diabetic polyneuropathy [id number] Chief Complaint DM Obstructive sleep apnea Chief Complaint DM Leukocytosis Reason for Visit Leukocytosis Chief Complaint Leukocytosis DM sent by dyalisis Reason for Visit Leukocytosis SHIRA (acute kidney injury) Cardiomyopathy Elevated serum creatinine Elevated troponin Hyperglycemia Hypokalemia Hyponatremia Metabolic alkalosis with respiratory acidosis CKD (chronic kidney disease) stage 3, GFR 30-59 ml/min Obstructive sleep apnea Paroxysmal A-fib Chief Complaint Leukocytosis DM sent by Fastr E87.6 I48.0 Reason for Visit Leukocytosis SHIRA [...] Follow Up, Rib Fx DM Amb Documentation Unknown abnormal labs abnormal labs abnormal labs abnormal labs abnormal labs abnormal labs abnormal labs Reason for Visit Acute kidney injury superimposed on CKD SHIRA (acute kidney injury) Cellulitis of lower leg Chronic ulcer of left foot with necrosis of muscle Controlled type 2 diabetes mellitus with diabetic polyneuropathy Hyperkalemia [id number] Hyponatremia Infected wound Leukocytosis Metabolic acidosis Surgical wound, non healing Type 2 diabetes mellitus with diabetic chronic kidney disease 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 Diabetes Assessments Diagnosis Onset Date Resolution Status Cellulitis of left toe acute Controlled type 2 diabetes m ellitus with diabetic polyneuropathy acute [id number] acute Family History No Family History Records [...] encounter (T23.022A) Referral Organization [facility] Referring Provider First Name Gisselle Referring Provider Last Name Noble Referring Provider Specialty Nurse Pract itioner Referred Organization [facility] Referred Address [address] [facility] [facility],[place], [place],[address] Referred Provider Specialty Wound Care Referral Priority Routine General Notes Lennie Mcghee 022 12:46:37 PM >Received today and waiting for office notes to be locked before sending referral Lennie Mcghee 10/03/2022 03:00:03 PM >Referral was fax Clinical Notes Office [phone] Reason * FU 02/13 lumbar arthritis/pain - wants Bennett or nadeen Diagnosis 1 Lumbar and sacral ar thritis (M48.9) Referral Organization [facility] Referring Provider First Name Vinnie Referring Provider Last Name Osvaldo Referring Provider Specialty Family Prac yamil Referred Organization [facility] Referred Address [address] [place], [place],[address] Referred Provider Specialty Pain Medicin e Referral Priority Routine General Notes Doris Modi 12:58:37 PM > referral received and faxed Additional Source Comments (unrecognized sect ion and content) No Status Records FoundNo Status Records FoundNo Status Records FoundNo Status Records FoundNo Status Records FoundNo Status Records FoundNo Status Records Found INFORMATION SOURCE (unrecogn ized section and content) DATE CREATED AUTHOR 11/17/2020 [facility] DATE CREATED AUTHOR AUTHOR'S ORGANIZ ATION 03/05/2022 [facility] DATE CREATED AUTHOR AUTHOR'S ORGANIZ ATION 04/27/2023 [facility] DATE CREATED AUTHOR AUTHOR'S ORGANIZ ATION 09/03/2023 [facility] DATE CREATED AUTHOR AUTHOR'S ORGANIZ ATION 12/23/2023 [facility] DATE CREATED AUTHOR AUTHOR'S ORGANIZ ATION 01/26/2024 [facility] DATE CREATED AUTHOR AUTHOR'S ORGANIZ ATION 02/09/2024 [facility] REASON FOR VISIT (unrecogniz ed section and content) 4 month Follow upportable co ncentratorDM, Needs to reapply for PAP, Type 2 IDDM, [facility] [address] FOLLOW UP, Patient will mail PAP back when he is done 10-05-21DS Trulicity RefillAPPT CANCELLEDDS Voicemail/ Diabetic ShoesXRAY RESULTSappt question-DS Patient Assistance Renewal/APPROVEDDM 6 week f/u, Type 2 IDDM, [facility] [address] FOLLOW UP, [facility] Visit CodesMED REFILLDS please call/ [...] F/U - pneumonia, SOB, Pt was at [facility], He said he went in on 06/12 and was dc 06/16, He said he is feeling betterDS DM appt CxFallrefillDS Sensor refillDM, DM, DM follow up, Type 2 IDDM, LUCAS 2, [facility] Visit CodesD/Ctrouble breathingrefillDS Returning clinic's callFINGER PAINDS please callsickCKD and HTNburns left handrefillrefillDS Needs [facility] Referral Updatemed refillHosp d/c Farxiga and JardianceD/C [facility] reviewrefillDM follow up, DM, DM, DM follow up, Type 2 IDDM, LUCAS 2, [facility] Visit Codes, In-patient [facility]-10/18-10/24/2022, [facility] Visit CodesconsultDeclined servicesStein Hospice ReferraldownloadStein Hospice ReferralNo DopcrbcorwlY7Dr requestDS PAP Basaglar/TrulicityDS VoicemailrefillHOSPITAL VISIT, Acute on chronic systolic CHFrefillupdatefall, bruise, lump on back near L shoulderbalance issuesrefillHOSPITAL FOLLOW UPST[facility]ITALfallNo Informationrefillbruising all over, difficulty walkingDS N/S [...] Member Role Status Dates Vinnie Stewart , Primary Care Provider Active Start: December 10, 2023 End: December 10, 2023 Nicolette Manzano , AIRPORT CONTROL OPERATOR Attending Provider Active Start: December 10, 2023 [...] Primary Care Provider Active Nicolette Manzano , AIRPORT CONTROL OPERATOR Attending Provider Active Team Status: Active Member Role Status Dates Vinnie Stewart , DO Primary Care Provider Active Alejandro Duncan , DO Emergency Provider Active Yakov To , DO Admit Provider, Attending Provider Active Team Status: Inactive Member Role Status Dates Vinnie Stewart , DO Primary Care Provider Active Alejandro A Miya , DO Emergency Provider Active Yakov To , DO Admit Provider, Attending Provider Active Team Status: Inactive Member Role Status Dates Vinnie Stewart , DO Primary Care Provider Active Yakov To , DO Attending Provider Active Team Status: Inactive Member Role Status Dates Jorge Arroyo DPM MS Attending Provider Active Start: January 17, 2024 End: January 17, 2024 Team Status: Inactive Member Role Status Dates Vinnie Stewart , Primary Care Provider Active Start: January 28, 2024 End: February 05, 2024 Farhan Hudson DO Admit Provider Active Start: January 28, 2024 End: February 05, 2024 Farhan Schofield MD Other Provider Active Start: January 28, 2024 End: February 05, 2024 Lia Law MD Other Provider Active Start: 2023 End: February 05, 2024 Valentin Valle DPM Other Provider Active Start: January 28, 2024 End: February 05, 2024 Raul Bravo MD Other Provider Active Start: January 28, 2024 End: February 05, 2024 Veronica Bailey LPN Other Provider Active Star t: January 28, 2024 End: February 05, 2024 Rodrick Herndon MD Other Provider Active Start : January 28, 2024 End: February 05, 2024 Selin George [employer] Other Provider Active St art: January 28, 2024 End: February 05, 2024 Shaheed Bryan MD Other Provider Active Start : January 28, 2024 End: February 05, 2024 Swathi Burnham MD Attending Provider Active S tart: January 28, 2024 End: February 05, 2024 Team Status: Active Member Role Status Dates Vinnie Stewart DO Primary Care Provider Active Start: January 28, 2024 Farhan Hudson DO Admit Provider, Atte nding Provider, Other Provider Active Start: January 28, 2024 Team Status: Active Member Role Status Dates Vinnie Stewart DO Primary Care Provider Active Start: January 29, 2024 Farhan Hudson DO Admit Provider, Other Provider Act neymar Start: January 29, 2024 Farhan Schofield MD Other Provider Active Start: January 29, 2024 Lia Law MD Attending Provider, Other Provider Active Start: January 29, 2024 Valentin Valle DPM Other Provider Active Start: January 29, 2024 Team Status: Active Member Role Status Dates Vinnie Stewart DO Primary Care Provider Active Start: January 29, 2024 Farhan Hudson DO Admit Provider, Othe r Provider Active Start: January 29, 2024 Farhan Schofield MD Other Provider Active Start: January 29, 2024 Lia Law MD Other Provider Active Start: arch 2023 Ervin Forrest MD Attending Provider Active Start: January 29, 2024 Team Status: Active Member Role Status Dates Vinnie Stewart DO Primary Care Provider Active Start: January 30, 2024 Farhan Hudson DO Admit Provider, Othe r Provider Active Start: January 30, 2024 Farhan Schofield MD Other Provider Active Start: January 30, 2024 Lia Law MD Other Provider Active Start: arch 2023 Valentin Valle DPM Other Provider Active Start: January 30, 2024 Raul Bravo MD Attending Prov ider, Other Provider Active Start: January 30, 2024 Veronica Bailey LPN Other Provider Active Star t: January 30, 2024 Rodrick Herndon MD Other Provider Active Start : January 30, 2024 KINSEY Guerrero Other Provider Active St art: January 30, 2024 Shaheed Bryan MD Other Provider Active Start : January 30, 2024 Team Status: Active Member Role Status Dates Vinnie Stewart DO Primary Care Provider Active Start: January 30, 2024 Farhan Hudson DO Admit Provider, Othe r Provider Active Start: January 30, 2024 Farhan Schofield MD Attending Provider, Other Provider Active Start: January 30, 2024 Lia Law MD Other Provider Active Start: M arch 2023 Valentin Valle DPM Other Provider Active Start: January 30, 2024 Raul Bravo MD Other Provider Active Start: January 30, 2024 Team Status: Active Member Role Status Dates Vinnie Stewart DO Primary Care Provider Active Start: February 05, 2024 Farhan Hudson DO Admit Provider Active Start: February 05, 2024 Farhan Schofield MD Other Provider Active Start: February 05, 2024 Lia Law MD Other Provider Active Start: [facility] 2023 Valentin Valle DPM Other Provider Active Start: February 05, 2024 Raul Bravo MD Other Provider Active Start: February 05, 2024 Veronica Bailey LPN Other Provider Active Star t: February 05, 2024 Rodrick Herndon MD Other Provider Active Start : February 05, 2024 KINSEY Guerrero Other Provider Active St art: February 05, 2024 Shaheed Bryan MD Other Provider Active Start : February 05, 2024 Swathi Burnham MD Other Provider Active Start : February 05, 2024 Simba Kaufman MD Attending Provider Active Start : February 05, 2024 Goals (unrecognized section and content) Goals may [...] BE BASED ON THE PRIMARY CLINICAL RECORDS. [facility]. provides no warranty or guarantee of the accuracy or completeness of information in this document.
--- OUTSIDE RECORDS SUMMARY | 2024-02-15 16:44 | XMS_ITS | CCD ---
Author Organization [facility] Care Team Providers Care Retail Selling Specialist Name Role Phone Vinnie Stewart Primary Care Provider Unavailab Valentin Gomez (WND) Attending Provider Unavaila Vinnie Lemon Primary Care Provider Nicolette Manzano Attending Provider Ivon Kat Attending Provider MA Procedure Practitioner Unavailab VINNIE Nash Primary Care Unavailable LOWELL CRAFT Referring Unavailable ANNABELLE BOYD Surgeon Unavailable CECILE MAJOR Admitting Unavailable CECILE MAJOR Attending Unavailable MA Procedure Practitioner Unavailab BALBIR Cardenas Surgeon Unavailable Vinnie Stewart Unavailable Vinnie Stewart Unavailable Brittnee Spain Unavailable Ruthie Guzman Unavailable Balbir Ba Unavailable Simba Kaufman Unavailable Gisselle Dickey Unavailable DO Vinnie Stewart Primary Care Provider CHARISSE Manzano Attending Provider [phone] DO Ethan Cummings II Attending Provider [phone] MD Simba Kaufman Referring Provider [phone] DO Vinnie Stewart Primary Care Provider DO Ethan Cummings II Attending Provider MD Simba Kaufman Referring Provider CHARISSE Manzano Attending Provider [phone] DO Alejandro Holliday Emergency Provider [phone] DO Yakov To Admit Provider DO Yakov To Attending Provider [phone] SHIRLEY, BRYCE Admitting Unavailable SHIRLEY, BRYCE Attending Unavailable SHIRLEY, BRYCE Consulting Unavailable [facility] Primary Care Unavailable FAWWAD, BROWN H Attending Unavailable FAWWAD, BROWN H Admitting Unavailable [facility] Primary Care Unavailable FAWWAD, BROWN H Admitting Unavailable FAWWAD, BROWN H Attending Unavailable [facility] Primary Care Unavailable SEPIDEH ., NIK Admitting Unavailable SEPIDEH ., NIK Attending Unavailable JACOBSON ., DR PROMISE Proctor Consulting Unavailable [facility] Primary Care Unavailable PAY ., DR TOM Consulting Unavailable SUSHIL STOUT Consulting Unavailable AHDOOTSTU Consulting Unavailable CAILIN, MASSIMO Consulting Unavailable PRUITTMICKY Consulting Unavailable SISTER, MURTAZA Consulting Unavailable SEPIDEH ., NIK Consulting Unavailable [facility] Primary Care Unavailable SHANTANU ., DR SOTELO Consulting Unavailable HOY ., DR SOTELO Admitting Unavailable HOY ., DR SOTELO Attending Unavailable ZIEBER, DR BIANCA Sorto Consulting Unavailable SONIDO VAUGHN Consulting Unavailable AUSTIN, BINOR Consulting Unavailable ALEK, AMAR Consulting Unavailable ADRIEL VIRGEN Consulting Unavailable FAWWAD, BROWN H Attending Unavailable FAWWAD, BROWN H Admitting Unavailable [facility] Primary Care Unavailable FAWWAD, BROWN H Attending Unavailable FAWWAD, BROWN H Admitting Unavailable [facility] Primary Care Unavailable CAILIN, MASSIMO Consulting Unavailable CAILIN, MASSIMO Admitting Unavailable CAILIN, MASSIMO Attending Unavailable [facility] Primary Care Unavailable YEARTY, KODI Consulting Unavailable YEARTY, KODI Admitting Unavailable STEPHANIE MYERSARA Attending Unavailable [facility] Primary Care Unavailable MISC, DR YEN Consulting Unavailable MISC, DR YEN Admitting Unavailable MISC, DR YEN Attending Unavailable [facility] Primary Care Unavailable JAC, SIMBA Consulting Unavailable JAC, SIMBA Admitting Unavailable STEWART, VINNIE Primary Care Unavailable JACTJUL Attending Unavailable JAC, SIMBA Admitting Unavailable JAC, SIMBA Attending Unavailable [facility] Primary Care Unavailable JAC, SIMBA Consulting Unavailable FAWWAD, BROWN H Attending Unavailable FAWWAD, BROWN H Admitting Unavailable STEWART, GLEN ALLEN Primary Care Unavailable FAWWAD, BROWN H Admitting Unavailable FAWWAD, BROWN H Attending Unavailable [facility] Primary Care Unavailable FAWWAD, BROWN H Attending Unavailable FAWWAD, BROWN H Admitting Unavailable [facility] Primary Care Unavailable YEARTY, KODI Admitting Unavailable YEARTY, KODI Attending Unavailable STEWART, GLEN ALLEN Primary Care Unavailable YEARTY, KODI Consulting Unavailable CAILIN, MASSIMO Admitting Unavailable CAILIN, MASSIMO Attending Unavailable STEWART, GLEN ALLEN Primary Care Unavailable CAILIN, MASSIMO Consulting Unavailable EMA ., CANDELARIA Admitting Unavailable EMA Olson, CANDELARIA Attending Unavailable JORGE BUCKNER Consulting Unavailable [facility] Primary Care Unavailable EMA Olson, CANDELARIA Consulting Unavailable FAWWAD, BROWN H Attending Unavailable [facility] Primary Care Unavailable FAWWAD, BROWN H Admitting Unavailable DR IMTIAZ DUVAL Consulting Unavailable FAWWAD, BROWN H Consulting Unavailable SOFÍA GASTON Consulting Unavailable MRIYAM MENDEZ Consulting Unavailable JOSE STRONG Consulting Unavailable BERMUDEZ, ALLIE Consulting Unavailable FAWWAD, BROWN H Admitting Unavailable FAWWAD, BROWN H [facility]ending [facility] FAWWAD, BROWN H Attending Unavailable FAWWAD, BROWN H Admitting Unavailable [facility] Primary Care Unavailable FAWWAD, BROWN H Admitting Unavailable FAWWAD, BROWN H Attending [facility] Unavailable HIGHLANDER, PETER D Admitting Unavailable HIGHLANDER, PETER D Attending Un[facility] Care Unavailable HIGHLANDER, PETER D Admitting Unavailable HIGHLANDER, PETER D Attending Un[facility] Primary Care Unavailable HIGHLANDER, PETER D Admitting Unavailable HIGHLANDER, PETER D Attending Unavailable STEWART, GLEN ALLEN Primary Care Unavailable HIGHLANDER, PETER D Admitting Unavailable HIGHLANDER, PETER D Attending Unavailable STEWART, GLEN ALLEN Primary Care Unavailable HIGHLANDER, PETER D Admitting Unavailable HIGHLANDER, PETER D Attending Unavailable [facility] Primary Care Unavailable SADE, DR BIANCA Sorto Consulting Unavailable PAY ., DR TOM Admitting Unavailable PAY ., DR TOM Attending Unavailable [facility] Primary Care Unavailable PAY ., DR TOM Consulting Unavailable FAWWAD, BROWN H Admitting Unavailable FAWWAD, BROWN H Attending Unavailable STEWART, VINNIE Primary Care Unavailable MILLERTON, DR BALBIR Thorpe Consulting Unavailable ZIEBER, DR [...] JULIA Consulting Unavailable BLANCA SANTOS Consulting Unavailable JAYLENE, SUSHIL Admitting Unavailable SUSHIL STOUT Attending Unavailable [...] DO Vinnie Stewart Primary Care Provider [place], NURSING UNIT COORDINATOR Nicolette Wright Attending Provider DAHIANA BELCHER Attending Unavailable SUSHIL STOUT Attending Unavailable FATIMAH NARVAEZ Referring Unavailable BRYCE WATSON Attending Unavailable MASSIMO SWAN Attending Unavailable SUSHIL STOUT Attending Unavailable SHIRLEY, BRYCE Attending Unavailable BRYCE WATSON Attending Unavailable SUSHIL STOUT Attending Unavailable DO Vinnie Stewart Primary Care Provider [place], NURSING UNIT COORDINATOR Tondra K Attending Provider [phone] NELLY Arroyo Attending Provider DO Farhan Hudson Admit Provider [phone] MD Farhan Schofield Other Provider MD Lia Law Other Provider NELLY Valle Other Provider MD Raul Bravo Other Provider KATIE Bailey Other Provider Unavailable MD Rodrick Herndon Other Provider [phone] KINSEY George Other Provider [phone] MD Shaheed Bryan Other Provider MD Swathi Burnham Attending Provider [phone] Vinnie Stewart Primary Care Unavailable Yakov To Attending Unavailable Yakov To Admitting Unavailable Nciolette Manzano Attending Unavailable Nicolette Manzano Admitting Unavailable Vinnie Stewart Primary Care Unavailable Farhan Hudson Admitting Unavailable Vinnie Stewart Primary Care Unavailable Farhan Schofield Consulting Unavailable Swathi Burnham Attending Unavailable Lia Law Consulting Unavailable Valentin Valle Consulting Unavailable Raul Bravo Consulting UnavailVeronica Cortez Consulting Unavailable Rodrick Herndon Consulting Unavailable Selin George Consulting Unavailable Shaheed Bryan Consulting Unavailable Jorge Arroyo Attending Unavailable Jorge Arroyo Admitting Unavailable Unavailable Unavailable Unavailable Allergies Allergy Classification Reported Allergen(s) Allergy Type Date of Onset Reaction(s) Facility (11 sources) Angiotensin Converting Enzyme (Lupis) Inhibitors; Translations: [LUPIS Inhibitors] Propensity to adverse reactions 2 Cough [facility] Repository (20 sources) Angiotensin Converting Enzyme (Lupis) Inhibitors Propensity to adverse reactions cough [employer] Other Medications Current Medications Medication Drug Class(es) [...] 8 hrs for 30 day(s) Sep, Active [id number] 200 actuat albuterol 0.09 mg/actuat metered dose [...] puff(s) by in halation twice daily calcitriol 0.55256 mg oral capsule (1 source) Vitamin D3 [...] Active Start: 09-13-2022 take 1 tablet by [facility] every eight hours Cephalexin 500 MG 1 tablet Orally every 8 hours for 7 days Aug, Active Start: 03-02-2022 take 1 capsule by [facility] every eight hours Cephalexin 500 MG 1 capsule Orally tid for 7 days Feb, Active Start: 01-26-2022 take 1 capsule by [facility] every twelve hours Cephalexin 500 MG 1 capsule Orally bid for 10 day(s) Jan, Active Start: 01-10-2022 take 1 capsule by [facility] every eight hours Cephalexin 500 MG 1 capsule Orally tid for 7 days Dec, Active Start: 12-09-2021 take 1 capsule by [facility] every twelve hours Cephalexin 500 MG 1 [...] Active Diabetic Shoes (20 sources) Start: 11-22-19 Diabetic Shoes as directed Nov, Active doxycycline [...] DX E11.65 Apr, Active FreeStyle [place] 2 [place] - (20 sources) FreeStyle Lucas 2 [place] - USE READER TO TEST BLOOD SUGAR DIRECTED DAILY for 365 Active FreeStyle Lucas 2 [place] - USE DIRECTED DAILY for 365 Active FreeStyle Lucas 2 [place] Sys tm - (20 sources) FreeStyle [place] 2 [place] Systm - as directed SQ Daily Active FreeStyle Lucas 2 [place] Systm - as directed SQ Daily for [...] Subcutaneous daily for 90 days transition from [facility] Aug, Active inject 50 [IU] [...] 05-30-2022 take 2 tablets by mo [facility] every twenty-four hours predniSONE 20 MG 2 tablets Orally Once a day for 5 day(s) May, Active vitamin b12 1 mg oral tablet (20 sources) Vitamin B12 Start: 06-06-2022 End: 06-06-2022 take 1 tablet by mouth once daily Cyanocobalamin (Vitamin B-12) (Vitamin B-12) 1,000 mcg Tablet Active 1000 MCG PO Daily June 06, 2022 12:07pm take 1 tablet by cedrick th every [...] day for 90 day(s) Active Jose - (20 sources) Start: 09-17-2023 Jose - ceferino bender Aug, Active Completed/Discontinued Medications Medication Drug Class(es) [...] AM Active take 3 tablets by mo ut once in the evening Furosemide 20 MG [...] sources) Anticholinergic Start: 04-10-2022 End: 12-04-2022 Ipratropium [place] Discontinued SOLUTION April 10, 2022 12:00am December [...] 2024 4:36pm take 1 tablet by cedrick every twenty-four hours metOLazone 2.5 MG 1 [...] 12, 2020 8:46am take 2 tablets by [facility] every twenty-four hours sennosides, intermediate 8.6 mg oral tablet (7 sources) Start: [...] Angina pectoris; Translations: [Atherosclerotic heart disease of [place] coronary artery with unspecified angina pectoris] Onset: [...] 2 diabetes mellitus] Onset: 4 04-10-2022 Chronic Diabetes mellitus without complication (7 sources) Hyperglycemia; Translations: [Hyperglycemia, unspecified] 02-13-2023 Episodic Diseases of white blood cells [...] sources) Long-term current use of insulin; Translations: [long term care phlebotomist (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] Episodic Other aftercare (9 sources) long term care phlebotomist (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; Translations: [HALFWAY CURRENT USE OF INSULIN] Onset: 1 Resolved: 2 Episodic Other aftercare (1 source) jail (current) use of aspirin; Translations: [MANAGER ENVIRONMENTAL CURRENT USE OF ASPIRIN] Onset: 3 Episodic Other aftercare (2 sources) Other rat exterminator (current) drug therapy; Translations: [OTH MANAGER ENVIRONMENTAL CURRENT DRUG THERAPY] Onset: 3 Episodic Other aftercare (5 sources) Encounter for therapeutic drug level monitoring; Translations: [ENC THERAPEUTC DRUG LEVL MONITORING] Onset: 3 Episodic Other aftercare (1 source) jail (current) use of anticoagulants; Translations: [HALFWAY CURRNT USE ANTICOAGULANTS] Onset: 3 Episodic Other [...] [Other specified abnormal findings of blood chemistry] 02-13-2023 Episodic Other skin disorders (3 sources) [...] (adult) (pediatric)] 04-10-2022 Chronic Residual codes; unclassified (3 sources) Obstructive sleep apnea (adult) (pediatric); Translations: [...] Albumin BCG dye [Mass/Vol] 2.4 g/dL 3.5-5.7 [facility] Basophils Auto (Bld) [#/Vol] Ordered By: Swathi Burnham on 02-05-2024 Basophils (Bld) [#/Vol] 0.1 10*3/uL 0.0-0.2 [facility] Basophils/100 WBC Auto (Bld) Ordered By: Swathi Burnham on 02-05-2024 Basophils/100 WBC (Bld) 0.6 % . [facility] Calcium [Mass/volume] in Ser um or PlasmaOrdered By: Farhan Hudson on 02-05-2024 Calcium [Mass/Vol] 7.0 mg/dL 8.6-10.3 [facility] Capillary blood glucose mike urement by glucometer (mass/volume)Ordered By: Swathi Burnham on 02-05-2024 Glucose [Mass/Vol] 256 mg/dL Normal [facility] Comment on above: Random Glucose Refer ence Range is dependent on time and content of last meal. Glucose of more than 200 mg/dL in a nonstressed, ambulatory subject supports the diagnosis of Diabetes Mellitus. Result Comment: [place] om Glucose Reference Range is dependent on time and content of last meal. Glucose of more than 200 mg/dL in a nonstressed, ambulatory subject supports the diagnosis of Diabetes Mellitus. Performed By: #### G LULS #### Point of Care testing , Carbon dioxide, total [Moles /volume] in Serum or PlasmaOrdered By: Farhan Hudson on 02-05-2024 CO2 [Moles/Vol] 27.6 mmol/L 21.0-31.[address] [facility] Chloride [Moles/volume] in S mary or PlasmaOrdered By: Farhan Hudson on 02-05-2024 Chloride [Moles/Vol] 95 mmol/L 98-107 [facility] Complete Blood Count Auto Di ffon 02-05-2024 Basophils (Bld) [#/Vol] 0.1 10*3/uL Normal 0.0-0.2 [facility] Comment on above: Result Comment: PERF ORMED BY: [place] [id number] PATHOLOGIST BRIDGE CONTRACTOR RAFA BYRNE M.D. Performed By: #### C BC #### [address] Basophils/100 WBC (Bld) 0.6 % Normal . [facility] Comment on above: Performed By: #### C BC #### [address] Eosinophils (Bld) [#/Vol] 0.4 10*3/uL Normal 0.0-0.45 [facility] Comment on above: Performed By: #### C BC #### [address] Eosinophils/100 WBC (Bld) 5.0 % Normal . [facility] Comment on above: Performed By: #### C BC #### [address] Erythrocyte distribution width (RBC) [Ratio] 17.7 % High 12.0-14.8 [facility] Comment on above: Performed By: #### C BC #### [address] Hematocrit (Bld) [Volume fraction] 22.6 % Low 38.8-50.0 [facility] Comment on above: Performed By: #### C BC #### [address] Hemoglobin (Bld) [Mass/Vol] 7.6 g/dL Low 13.0-17.0 [facility] Comment on above: Performed By: #### C BC #### [address] Lymphocytes (Bld) [#/Vol] 1.3 10*3/uL Normal 1.00-4.8 [facility] Comment on above: Performed By: #### C BC #### [address] Lymphocytes/100 WBC (Bld) 14.7 % Normal . [facility] Comment on above: Performed By: #### C BC #### [address] MCH (RBC) [Entitic mass] 26.6 pg Low 27.5-35.2 [facility] Comment on above: Performed By: #### C BC #### [address] MCV (RBC) [Entitic vol] 79.6 fL Low 83.5-101 [facility] Comment on above: Performed By: #### C BC #### [address] Mean Corpuscular HGB Conc 33.4 g/dL Normal 32.5-35.6 [facility] Comment on above: Performed By: #### C BC #### [address] Monocytes (Bld) [#/Vol] 0.5 10*3/uL Normal 0.0-0.8 [facility] Comment on above: Performed By: #### C BC #### [address] Monocytes/100 WBC (Bld) 6.1 % Normal . [facility] Comment on above: Performed By: #### C BC #### [address] Neutrophils (Bld) [#/Vol] 6.6 10*3/uL Normal 1.8-7.7 [facility] Comment on above: Performed By: #### C BC #### [address] Neutrophils/100 WBC (Bld) 73.6 % Normal . [facility] Comment on above: Performed By: #### C BC #### [address] NRBC% 0.0 /100{WBC} Normal 0-0.5 [facility] Comment on above: Performed By: #### C BC #### [facility] [address] Platelet mean volume (Bld) [Entitic vol] 7.2 fL Normal 6.6-10.1 [facility] Comment on above: Performed By: #### C BC #### [facility] [address] Platelets (Bld) [#/Vol] 180 10*3/uL Normal 150-450 [facility] Comment on above: Performed By: #### C BC #### [facility] [address] RBC (Bld) [#/Vol] 2.84 10*6/uL Low 3.90-5.60 [facility] Comment on above: Performed By: #### C BC #### [facility] [address] WBC (Bld) [#/Vol] 8.9 10*3/uL Normal 4.1-10.5 [facility] Comment on above: Performed By: #### C BC #### [facility] [address] Creatinine [Mass/volume] in Serum or PlasmaOrdered By: Farhan Hudson on 02-05-2024 Creatinine [Mass/Vol] 2.63 mg/dL 0.70-1.30 [facility] Comment on above: Delta: 3.41 on 02/0324-0600 Eosinophils Auto (Bld) [#/Vo l]Ordered By: Swathi Burnham on 02-05-2024 Eosinophils (Bld) [#/Vol] 0.4 10*3/uL 0.0-0.45 [facility] Eosinophils/100 WBC Auto (Bl d)Ordered By: Swathi Burnham on 02-05-2024 Eosinophils/100 WBC (Bld) 5.0 % . [facility] Erythrocyte distribution wid th Auto (RBC) [Ratio]Ordered By: Swathi Burnham on 02-05-2024 Erythrocyte distribution width (RBC) [Ratio] 17.7 % 12.0-14.8 [facility] Glucose Poct Glucometerson 0 02-05-2024 Commemt1 Glu2: Cleaned Meter Normal [facility] Comment on above: Result Comment: PERF ORMED BY: [place] [id number] PATHOLOGIST BRIDGE CONTRACTOR RAFA BYRNE M.D. Performed By: #### G ALVARADO #### Point of Care testing , Performed By: #### A HERVE STEINER #### [address] Glucose [Mass/Vol] 221 mg/dL Normal [facility] Comment on above: Result Comment: [place] Glucose Reference Range is dependent on time and content of last meal. Glucose of more than 200 mg/dL in a nonstressed, ambulatory subject supports the diagnosis of Diabetes Mellitus. Performed By: #### A HERVE STEINER #### [facility] [address] [place] [address] Glucose [Mass/Vol] 166 mg/dL Normal [facility] Comment on above: Result Comment: [place] om Glucose Reference Range is dependent on time and content of last meal. Glucose of more than 200 mg/dL in a nonstressed, ambulatory subject supports the diagnosis of Diabetes Mellitus. PERFORMED BY: [place] [id number] PATHOLOGIST BRIDGE CONTRACTOR RAFA BYRNE M.D. Performed By: #### G ALVARADO #### Point of Care testing , Glucose [Mass/volume] in Ser um or PlasmaOrdered By: Farhan Hudson on 02-05-2024 Glucose [Mass/Vol] 162 mg/dL 70-100 [facility] Comment on above: ADA recommended refe rence rangeRandom Glucose Reference Range is dependent on time and content of last meal. Glucose of more than 200 mg/dL in a nonstressed, ambulatory subject supports the diagnosis of Diabetes Mellitus. Hematocrit Auto (Bld) [Volum e fraction]Ordered By: Swathi Burnham on 02-05-2024 Hematocrit (Bld) [Volume fraction] 22.7 % 38.8-50.0 [facility] Hemoglobin [Mass/volume] in BloodOrdered By: Swathi Burnham on 02-05-2024 Hemoglobin (Bld) [Mass/Vol] 7.5 g/dL 13.0-17.0 [facility] Hemoglobin and Hematocriton 02-05-2024 Hematocrit (Bld) [Volume fraction] 22.7 % Low 38.8-50.0 [facility] Comment on above: Result Comment: PERF ORMED BY: [facility] [address] [place] [address] PATHOLOGIST BRIDGE CONTRACTOR RAFA BYRNE M.D. Performed By: #### G LULS #### Point of Care testing , Hemoglobin (Bld) [Mass/Vol] 7.5 g/dL Low 13.0-17.0 [facility] Comment on above: Performed By: #### G LULS #### Point of Care testing , Leukocytes [#/volume] correc morris for nucleated erythrocytes in Blood by Automated counOrdered By: Swathi Burnham on 02-05-2024 WBC corrected for nucl RBC Auto (Bld) [#/Vol] 8.9 10*3/uL 4.1-10.5 [facility] Lymphocytes Auto (Bld) [#/Vo l]Ordered By: Swathi Burnham on 02-05-2024 Lymphocytes (Bld) [#/Vol] 1.3 10*3/uL 1.00-4.8 [facility] Lymphocytes/100 WBC Auto (Bl d)Ordered By: Swathi Burnham on 02-05-2024 Lymphocytes/100 WBC (Bld) 14.7 % . [facility] MCH Auto (RBC) [Entitic mass ]Ordered By: Swathi Burnham on 02-05-2024 MCH (RBC) [Entitic mass] 26.6 pg 27.5-35.2 [facility] MCHC Auto (RBC) [Mass/Vol]Or dered By: Swathi Burnham on 02-05-2024 MCHC (RBC) [Mass/Vol] 33.4 g/dL 32.5-35.6 [facility] MCV Auto (RBC) [Entitic vol] Ordered By: Swathi Burnham on 02-05-2024 MCV (RBC) [Entitic vol] 79.6 fL 83.5-101 [facility] Monocytes Auto (Bld) [#/Vol] Ordered By: Swathi Burnham on 02-05-2024 Monocytes (Bld) [#/Vol] 0.5 10*3/uL 0.0-0.8 [facility] Monocytes/100 WBC Auto (Bld) Ordered By: Swathi Burnham on 02-05-2024 Monocytes/100 WBC (Bld) 6.1 % . [facility] Neutrophils Auto (Bld) [#/Vo l]Ordered By: Swathi Burnham on 02-05-2024 Neutrophils (Bld) [#/Vol] 6.6 10*3/uL 1.8-7.7 [facility] Neutrophils/100 WBC Auto (Bl d)Ordered By: Swathi Burnham on 02-05-2024 Neutrophils/100 WBC (Bld) 73.6 % . [facility] No Panel InformationOrdered By: Swathi Burnham on 02-05-2024 Bedside Glucose Comment Glu2: cleaned meter [facility] No Panel InformationOrdered By: Farhan Hudson on 02-05-2024 Estimated GFR (CKD-EPI) 25.531 mL/Min [facility] Creatinine Clearance (Chem 30.17 [facility] Nucleated erythrocytes [Pres ence] in Blood by Automated countOrdered By: Swathi Burnham on 02-05-2024 Nucleated RBC Auto Ql (Bld) 0.0 /100{WBC} 0-0.5 [facility] Phosphate [Mass/volume] in S mary or PlasmaOrdered By: Farhan Hudson on 02-05-2024 Phosphate [Mass/Vol] 3.9 mg/dL 2.5-4.5 [facility] Platelet mean volume Auto (B ld) [Entitic vol]Ordered By: Swathi Burnham on 02-05-2024 Platelet mean volume (Bld) [Entitic vol] 7.2 fL 6.6-10.1 [facility] Platelets Auto (Bld) [#/Vol] Ordered By: Swathi Burnham on 02-05-2024 Platelets (Bld) [#/Vol] 180 10*3/uL 150-450 [facility] Potassium [Moles/volume] in Serum or PlasmaOrdered By: Farhan Hudson on 02-05-2024 Potassium [Moles/Vol] 3.7 mmol/L 3.5-5.1 [facility] RBC Auto (Bld) [#/Vol]Ordere d By: Swathi Burnham on 02-05-2024 RBC (Bld) [#/Vol] 2.84 10*6/uL 3.90-5.60 [facility] Renal Function Panelon 02-04 Albumin [Mass/Vol] 2.4 g/dL Low 3.5-5.7 [facility] Comment on above: Performed By: #### R ENAL #### [facility] [address] Anion gap [Moles/Vol] 11.1 mmol/L Normal 6.0-15.0 [facility] Comment on above: Performed By: #### R ENAL #### [facility] [address] [place] [address] [place] Calcium [Mass/Vol] 7.0 mg/dL Low 8.6-10.3 [facility] Comment on above: Performed By: #### R ENAL #### [facility] [address] [place] [id number] [place] Chloride [Moles/Vol] 95 mmol/L Low 98-107 [facility] Comment on above: Performed By: #### R ENAL #### [facility] [address] [place] [address] [place] CO2 [Moles/Vol] 27.6 mmol/L Normal 21.0-31.[address] [facility] Comment on above: Performed By: #### R ENAL #### [facility] [address] [place] [id number] [place] Creatinine [Mass/Vol] 2.63 mg/dL Significan t change up 0.70-1.30 [facility] Comment on above: Performed By: #### R ENAL #### [facility] [address] [place] [address] [place] Creatinine Clr Calc Pharmacy 30.17 Normal [facility] Comment on above: Result Comment: PERF ORMED BY: [place] [address] PATHOLOGIST BRIDGE CONTRACTOR RAFA BYRNE M.D. Performed By: #### R ENAL #### [facility] [address] [place] [address] [place] GFR/1.73 sq M.predicted MDRD (S/P/Bld) [Vol rate/Area] 25.531 mL/min/{1.73_m2} Normal [facility] Comment on above: Performed By: #### R ENAL #### [address] Glucose [Mass/Vol] 162 mg/dL High 70-100 [facility] Comment on above: Result Comment: [facility] Glucose Reference Range is dependent on time and content of last meal. Glucose of more than 200 mg/dL in a nonstressed, ambulatory subject supports the diagnosis of Diabetes Mellitus. ADA recommended reference range Performed By: #### R ENAL #### [address] Phosphate [Mass/Vol] 3.9 mg/dL Normal 2.5-4.5 [facility] Comment on above: Performed By: #### R ENAL #### [place] [address] [place] Potassium [Moles/Vol] 3.7 mmol/L Normal 3.5-5.1 [facility] Comment on above: Performed By: #### R ENAL #### [place] [address] [place] Sodium [Moles/Vol] 130 mmol/L Low 136-145 [facility] Comment on above: Performed By: #### R ENAL #### [place] [address] [place] Urea nitrogen [Mass/Vol] 35 mg/dL High 06-12 [facility] Comment on above: Performed By: #### R ENAL #### [facility] [address] Serum or plasma anion gap de terminationOrdered By: Farhan Hudson on 02-05-2024 Anion gap [Moles/Vol] 11.1 mmol/L 6.0-15.0 [facility] Sodium [Moles/volume] in Ser um or PlasmaOrdered By: Farhan Hudson on 02-05-2024 Sodium [Moles/Vol] 130 mmol/L 136-145 [facility] Urea nitrogen [Mass/volume] in Serum or PlasmaOrdered By: Farhan Hudson on 02-05-2024 Urea nitrogen [Mass/Vol] 35 mg/dL 06-12 [facility] WBC Auto (Bld) [#/Vol]Ordere d By: Swathi Burnham on 02-05-2024 WBC (Bld) [#/Vol] 8.9 10*3/uL 4.1-10.5 [facility] Glucose Poct Glucometerson 0 02-04-2024 Glucose [Mass/Vol] 268 mg/dL Normal [facility] Comment on above: Result Comment: [facility] Glucose Reference Range is dependent on time and content of last meal. Glucose of more than 200 mg/dL in a nonstressed, ambulatory subject supports the diagnosis of Diabetes Mellitus. PERFORMED BY: [place] [address] PATHOLOGIST BRIDGE CONTRACTOR RAFA BYRNE M.D. Performed By: #### G LULS #### Point of Care testing , Commemt1 Glu2: Cleaned Meter Normal [facility] Comment on above: Result Comment: PERF ORMED BY: [place] [address] PATHOLOGIST BRIDGE CONTRACTOR RAFA BYRNE M.D. Performed By: #### R ENAL #### [facility] [address] Glucose [Mass/Vol] 114 mg/dL Normal [facility] Comment on above: Result Comment: [place] [facility] Glucose Reference Range is dependent on time and content of last meal. Glucose of more than 200 mg/dL in a nonstressed, ambulatory subject supports the diagnosis of Diabetes Mellitus. Performed By: #### R ENAL #### [address] Commemt1 Glu2: Cleaned Meter Normal [facility] Comment on above: Result Comment: PERF ORMED BY: [place] [address] PATHOLOGIST BRIDGE CONTRACTOR RAFA BYRNE M.D. Performed By: #### A HERVE STEINER #### [address] Glucose [Mass/Vol] 188 mg/dL Normal [facility] Comment on above: Result Comment: [place] [facility] Glucose Reference Range is dependent on time and content of last meal. Glucose of more than 200 mg/dL in a nonstressed, ambulatory subject supports the diagnosis of Diabetes Mellitus. Performed By: #### A HERVE STEINER #### [address] Renal Function Panelon 02-03 Albumin [Mass/Vol] 2.5 g/dL Low 3.5-5.7 [facility] Comment on above: Performed By: #### R ENAL #### [address] Anion gap [Moles/Vol] 13.0 mmol/L Normal 6.0-15.0 [facility] Comment on above: Performed By: #### R ENAL #### [place] [address] [place] Calcium [Mass/Vol] 7.4 mg/dL Low 8.6-10.3 [facility] Comment on above: Performed By: #### R ENAL #### [place] [address] [place] Chloride [Moles/Vol] 93 mmol/L Low 98-107 [facility] Comment on above: Performed By: #### R ENAL #### [facility] [address] CO2 [Moles/Vol] 27.9 mmol/L Normal 21.0-31.[address] [facility] Comment on above: Performed By: #### R ENAL #### [facility] [address] Creatinine [Mass/Vol] 3.41 mg/dL Significan t change up 0.70-1.30 [facility] Comment on above: Performed By: #### R ENAL #### [place] [address] [place] Creatinine Clr Calc Pharmacy 23.27 Normal [facility] Comment on above: Result Comment: PERF ORMED BY: [place] [address] PATHOLOGIST BRIDGE CONTRACTOR RAFA BYRNE M.D. Performed By: #### R ENAL #### [place] [address] [place] GFR/1.73 sq M.predicted MDRD (S/P/Bld) [Vol rate/Area] 18.694 mL/min/{1.73_m2} Normal [facility] Comment on above: Performed By: #### R ENAL #### [address] Glucose [Mass/Vol] 164 mg/dL High 70-100 [facility] Comment on above: Result Comment: [place] Glucose Reference Range is dependent on time and content of last meal. Glucose of more than 200 mg/dL in a nonstressed, ambulatory subject supports the diagnosis of Diabetes Mellitus. ADA recommended reference range Performed By: #### R ENAL #### [place] [address] [place] Phosphate [Mass/Vol] 5.6 mg/dL High 2.5-4.5 [facility] Comment on above: Performed By: #### R ENAL #### [place] [address] [place] Potassium [Moles/Vol] 3.9 mmol/L Normal 3.5-5.1 [facility] Comment on above: Performed By: #### R ENAL #### [facility] [address] Sodium [Moles/Vol] 130 mmol/L Low 136-145 [facility] Comment on above: Performed By: #### R ENAL #### [facility] [address] Urea nitrogen [Mass/Vol] 50 mg/dL High 7-25 [facility] Comment on above: Performed By: #### R ENAL #### [facility] [address] Alanine aminotransferase [En zymatic activity/volume] in Serum or PlasmaOrdered By: Farhan Hudson on 02-03-2024 ALT [Catalytic activity/Vol] 14 U/L 7-52 [facility] Alkaline phosphatase [Enzyma tic activity/volume] in Serum or PlasmaOrdered By: Farhan Hudson on 02-03-2024 ALP [Catalytic activity/Vol] 157 U/L 34-104 [facility] Aspartate aminotransferase [ Enzymatic activity/volume] in Serum or PlasmaOrdered By: Farhan Hudson on 02-03-2024 AST [Catalytic activity/Vol] 15 U/L 13-39 [facility] Bilirubin.direct [Mass/volum e] in Serum or PlasmaOrdered By: Farhan Hudson on 02-03-2024 Bilirubin.direct [Mass/Vol] 0.20 mg/dL 0.03-0.18 [facility] Bilirubin.total [Mass/volume ] in Serum or PlasmaOrdered By: Farhan Hudson on 02-03-2024 Bilirubin [Mass/Vol] 0.6 mg/dL 0.3-1.0 [facility] Complete Blood Count Auto Di ffon 02-03-2024 Basophils (Bld) [#/Vol] 0.1 10*3/uL Normal 0.0-0.2 [facility] Comment on above: Result Comment: PERF ORMED BY: [address] [place] [address] PATHOLOGIST BRIDGE CONTRACTOR RAFA BYRNE M.D. Performed By: #### G EANLS #### Point of Care testing , Basophils/100 WBC (Bld) 1.2 % Normal . [facility] Comment on above: Performed By: #### G EANLS #### Point of Care testing , Eosinophils (Bld) [#/Vol] 0.4 10*3/uL Normal 0.0-0.45 [facility] Comment on above: Performed By: #### G EANLS #### Point of Care testing , Eosinophils/100 WBC (Bld) 4.3 % Normal . [facility] Comment on above: Performed By: #### G EANLS #### Point of Care testing , Erythrocyte distribution width (RBC) [Ratio] 17.4 % High 12.0-14.8 [facility] Comment on above: Performed By: #### G EANLS #### Point of Care testing , Hematocrit (Bld) [Volume fraction] 24.7 % Low 38.8-50.0 [facility] Comment on above: Performed By: #### Georgette MCKOYLS #### Point of Care testing , Hemoglobin (Bld) [Mass/Vol] 8.3 g/dL Low 13.0-17.0 [facility] Comment on above: Performed By: #### G EANLS #### Point of Care testing , Lymphocytes (Bld) [#/Vol] 1.7 10*3/uL Normal 1.00-4.8 [facility] Comment on above: Performed By: #### G EANLS #### Point of Care testing , Lymphocytes/100 WBC (Bld) 17.0 % Normal . [facility] Comment on above: Performed By: #### G EANLS #### Point of Care testing , MCH (RBC) [Entitic mass] 26.8 pg Low 27.5-35.2 [facility] Comment on above: Performed By: #### G EANLS #### Point of Care testing , MCV (RBC) [Entitic vol] 79.7 fL Low 83.5-101 [facility] Comment on above: Performed By: #### G EANLS #### Point of Care testing , Mean Corpuscular HGB Conc 33.6 g/dL Normal 32.5-35.6 [facility] Comment on above: Performed By: #### Georgette CHILDERS #### Point of Care testing , Monocytes (Bld) [#/Vol] 0.5 10*3/uL Normal 0.0-0.8 [facility] Comment on above: Performed By: #### Georgette CHILDERS #### Point of Care testing , Monocytes/100 WBC (Bld) 5.3 % Normal . [facility] Comment on above: Performed By: #### Georgette CHILDERS #### Point of Care testing , Neutrophils (Bld) [#/Vol] 7.3 10*3/uL Normal 1.8-7.7 [facility] Comment on above: Performed By: #### Georgette CHILDERS #### Point of Care testing , Neutrophils/100 WBC (Bld) 72.2 % Normal . [facility] Comment on above: Performed By: #### Georgette CHILDERS #### Point of Care testing , NRBC% 0.1 /100{WBC} Normal 0-0.5 [facility] Comment on above: Performed By: #### Georgette CHILDERS #### Point of Care testing , Platelet mean volume (Bld) [Entitic vol] 7.1 fL Normal 6.6-10.1 [facility] Comment on above: Performed By: #### Georgette CHILDERS #### Point of Care testing , Platelets (Bld) [#/Vol] 228 10*3/uL Normal 150-450 [facility] Comment on above: Performed By: #### Georgette CHILDERS #### Point of Care testing , RBC (Bld) [#/Vol] 3.10 10*6/uL Low 3.90-5.60 [facility] Comment on above: Performed By: #### Georgette CHILDERS #### Point of Care testing , WBC (Bld) [#/Vol] 10.1 10*3/uL Normal 4.1-10.5 [facility] Comment on above: Performed By: #### Georgette CHILDERS #### Point of Care testing , Ferritinon 02-03-2024 Ferritin [Mass/Vol] 208.4 ng/mL Normal 23.9-336.2 [facility] Comment on above: Performed By: #### G ALVARADO #### Point of Care testing , Ferritin [Mass/volume] in Se rum or PlasmaOrdered By: Farhan Hudson on 02-03-2024 Ferritin [Mass/Vol] 208.4 ng/mL 23.9-336.2 [facility] Folate [Mass/volume] in Seru m or PlasmaOrdered By: Farhan Hudson on 02-03-2024 Folate [Mass/Vol] 9.7 ng/mL >5.9 [facility] Comment on above: Folate reference ran ge: >5.9 ng/mlThe WHO technical consultation on folate and vitamin [id number] has determined that folate concentrations lessthan 4 ng/ml are considered deficient. Globulin Calc (S) [Mass/Vol] Ordered By: Farhan Hudson on 02-03-2024 Globulin (S) [Mass/Vol] 3.7 g/dL [facility] Glucose Poct Glucometerson 0 02-03-2024 Glucose [Mass/Vol] 190 mg/dL Normal [facility] Comment on above: Result Comment: [facility] Glucose Reference Range is dependent on time and content of last meal. Glucose of more than 200 mg/dL in a nonstressed, ambulatory subject supports the diagnosis of Diabetes Mellitus. PERFORMED BY: [address] [address] PATHOLOGIST BRIDGE CONTRACTOR RAFA BYRNE M.D. Performed By: #### G EANLS #### Point of Care testing , Glucose [Mass/Vol] 235 mg/dL Normal [facility] Comment on above: Result Comment: [facility] Glucose Reference Range is dependent on time and content of last meal. Glucose of more than 200 mg/dL in a nonstressed, ambulatory subject supports the diagnosis of Diabetes Mellitus. PERFORMED BY: [facility] [address] [facility] [address] PATHOLOGIST BRIDGE CONTRACTOR RAFA BYRNE M.D. Performed By: #### G LULS #### Point of Care testing , Glucose [Mass/Vol] 262 mg/dL Normal [facility] Comment on above: Result Comment: [facility] Glucose Reference Range is dependent on time and content of last meal. Glucose of more than 200 mg/dL in a nonstressed, ambulatory subject supports the diagnosis of Diabetes Mellitus. PERFORMED BY: [place] [address] PATHOLOGIST BRIDGE CONTRACTOR RAFA BYRNE M.D. Performed By: #### Robert STEINER #### [address] Glucose [Mass/Vol] 218 mg/dL Normal [facility] Comment on above: Result Comment: [facility] Glucose Reference Range is dependent on time and content of last meal. Glucose of more than 200 mg/dL in a nonstressed, ambulatory subject supports the diagnosis of Diabetes Mellitus. PERFORMED BY: [place] [address] PATHOLOGIST BRIDGE CONTRACTOR RAFA BYRNE M.D. Performed By: #### R UZAIR #### [address] Hepatic Panelon 02-03-2024 Albumin [Mass/Vol] 2.4 g/dL Low 3.5-5.7 [facility] Comment on above: Performed By: #### G EANLS #### Point of Care testing , Albumin/Globulin [Mass ratio] 0.6 {ratio} Normal [facility] Comment on above: Performed By: #### G EANLS #### Point of Care testing , ALP [Catalytic activity/Vol] 157 U/L High 34-104 [facility] Comment on above: Performed By: #### G LULS #### Point of Care testing , ALT [Catalytic activity/Vol] 14 U/L Normal 7-52 [facility] Comment on above: Performed By: #### G LULS #### Point of Care testing , AST [Catalytic activity/Vol] 15 U/L Normal 13-39 [facility] Comment on above: Performed By: #### G LULS #### Point of Care testing , Bilirubin [Mass/Vol] 0.6 mg/dL Normal 0.3-1.0 [facility] Comment on above: Performed By: #### G ALVARADO #### Point of Care testing , Bilirubin,Indirect 0.4 mg/dL Normal [facility] Comment on above: Performed By: #### G ALVARADO #### Point of Care testing , Bilirubin.indirect [Mass/Vol] 0.20 mg/dL High 0.03-0.18 [facility] Comment on above: Performed By: #### G ALVARADO #### Point of Care testing , Globulin (S) [Mass/Vol] 3.7 g/dL Normal [facility] Comment on above: Performed By: #### G ALVARADO #### Point of Care testing , Protein [Mass/Vol] 6.1 g/dL Low 6.4-8.9 [facility] Comment on above: Performed By: #### G ALVARADO #### Point of Care testing , Iron [Mass/volume] in Serum or PlasmaOrdered By: Farhan Hudson on 02-03-2024 Iron [Mass/Vol] 169 ug/dL 50-212 [facility] Iron and TIBC Profileon 01-17-2023 % Iron Saturation 87.6 % High 20-50 [facility] Comment on above: Performed By: #### G ALVARADO #### Point of Care testing , Iron [Mass/Vol] 169 ug/dL Normal 50-212 [facility] Comment on above: Performed By: #### G ALVARADO #### Point of Care testing , Total Iron Binding Capacity 193 ug/dL Low 255-450 [facility] Comment on above: Performed By: #### G ALVARADO #### Point of Care testing , Transferrin [Mass/Vol] 138 mg/dL Low 203-362 [facility] Comment on above: Performed By: #### G ALVARADO #### Point of Care testing , Iron binding capacity [Mass/ volume] in Serum or PlasmaOrdered By: Farhan Hudson on 02-03-2024 Iron binding capacity [Mass/Vol] 193 ug/dL 255-450 [facility] Iron saturation [Mass Fracti on] in Serum or PlasmaOrdered By: Farhan Hudson on 02-03-2024 Iron saturation [Mass fraction] 87.6 % 20-50 [facility] Protein [Mass/volume] in Ser um or PlasmaOrdered By: Farhan Hudson on 02-03-2024 Protein [Mass/Vol] 6.1 g/dL 6.4-8.9 [facility] Renal Function Panelon 02-02 Anion gap [Moles/Vol] 10.2 mmol/L Normal 6.0-15.0 [facility] Comment on above: Performed By: #### G LULS #### Point of Care testing , Calcium [Mass/Vol] 7.1 mg/dL Low 8.6-10.3 [facility] Comment on above: Performed By: #### G EANLS #### Point of Care testing , Chloride [Moles/Vol] 95 mmol/L Low 98-107 [facility] Comment on above: Performed By: #### G EANLS #### Point of Care testing , CO2 [Moles/Vol] 28.8 mmol/L Normal 21.0-31.[address] [facility] Comment on above: Performed By: #### G LULS #### Point of Care testing , Creatinine [Mass/Vol] 2.87 mg/dL Significan t change up 0.70-1.30 [facility] Comment on above: Performed By: #### G LULS #### Point of Care testing , Creatinine Clr Calc Pharmacy 27.45 [facility] Comment on above: Performed By: #### G LULS #### Point of Care testing , GFR/1.73 sq M.predicted MDRD (S/P/Bld) [Vol rate/Area] 22.991 mL/min/{1.73_m2} [facility] Comment on above: Performed By: #### G LULS #### Point of Care testing , Glucose [Mass/Vol] 157 mg/dL High 70-100 [facility] Comment on above: Result Comment: [facility] Glucose Reference Range is dependent on time and content of last meal. Glucose of more than 200 mg/dL in a nonstressed, ambulatory subject supports the diagnosis of Diabetes Mellitus. ADA recommended reference range Performed By: #### G LULS #### Point of Care testing , Phosphate [Mass/Vol] 5.0 mg/dL High 2.5-4.5 [facility] Comment on above: Performed By: #### G LULS #### Point of Care testing , Potassium [Moles/Vol] 4.0 mmol/L Normal 3.5-5.1 [facility] Comment on above: Performed By: #### G LULS #### Point of Care testing , Sodium [Moles/Vol] 130 mmol/L Low 136-145 [facility] Comment on above: Performed By: #### G LULS #### Point of Care testing , Urea nitrogen [Mass/Vol] 36 mg/dL High 7-25 [facility] Comment on above: Performed By: #### G LULS #### Point of Care testing , Serum or plasma albumin/glob ulin mass ratioOrdered By: Farhan Hudson on 02-03-2024 Albumin/Globulin [Mass ratio] 0.6 {ratio} [facility] Serum or plasma non-glucuron idated bilirubin measurement (mass/volume)Ordered By: Farhan Hudson on 02-03-2024 Bilirubin.indirect [Mass/Vol] 0.4 mg/dL [facility] Transferrin [Mass/volume] in Serum or PlasmaOrdered By: Farhan Hudson on 02-03-2024 Transferrin [Mass/Vol] 138 mg/dL 203-362 [facility] Vit. B12/Folate Profileon Cobalamin (Vitamin B12) [Mass/Vol] 1412 pg/mL High 180-914 [facility] Comment on above: Performed By: #### G LULS #### Point of Care testing , Folate 9.7 ng/mL Normal >5.9 [facility] Comment on above: Result Comment: Karen te reference range: >5.9 ng/ml The WHO technical consultation on folate and vitamin b12 deficiencies has determined that folate concentrations less than 4 ng/ml are considered deficient. PERFORMED BY: [place] [address] PATHOLOGIST BRIDGE CONTRACTOR RAFA BYRNE M.D. Performed By: #### G ALVARADO #### Point of Care testing , Vitamin B12 ser/plasOrdered By: Farhan Hudson on 02-03-2024 Cobalamin (Vitamin B12) [Mass/Vol] 1412 pg/mL 180-914 [facility] Basic Metabolic Panelon 01-17 Anion gap [Moles/Vol] 13.4 mmol/L Normal 6.0-15.0 [facility] Comment on above: Performed By: #### A HERVE STEINER #### [facility] [address] Calcium [Mass/Vol] 7.4 mg/dL Low 8.6-10.3 [facility] Comment on above: Performed By: #### A HERVE STEINER #### [facility] [address] [place] [address] [place] Chloride [Moles/Vol] 93 mmol/L Low 98-107 [facility] Comment on above: Performed By: #### A HERVE STEINER #### [facility] [address] CO2 [Moles/Vol] 25.7 mmol/L Normal 21.0-31.[address] [facility] Comment on above: Performed By: #### A HERVE STEINER #### [facility] [address] [place] [address] [place] Creatinine [Mass/Vol] 3.82 mg/dL Significan t change up 0.70-1.30 [facility] Comment on above: Performed By: #### A HERVE STEINER #### [facility] [address] [place] [address] [place] Creatinine Clr Calc Pharmacy 20.81 Normal [facility] Comment on above: Result Comment: PERF ORMED BY: [place] [address] PATHOLOGIST BRIDGE CONTRACTOR RAFA BYRNE M.D. Performed By: #### A HERVE STEINER #### [facility] [address] [place] [address] [place] GFR/1.73 sq M.predicted MDRD (S/P/Bld) [Vol rate/Area] 16.313 mL/min/{1.73_m2} Normal [facility] Comment on above: Performed By: #### A HERVE STEINER #### [address] Glucose [Mass/Vol] 168 mg/dL High 70-100 [facility] Comment on above: Result Comment: [place] Glucose Reference Range is dependent on time and content of last meal. Glucose of more than 200 mg/dL in a nonstressed, ambulatory subject supports the diagnosis of Diabetes Mellitus. ADA recommended reference range Performed By: #### A HERVE STEINER #### [address] Potassium [Moles/Vol] 4.1 mmol/L Normal 3.5-5.1 [facility] Comment on above: Performed By: #### A HERVE STIENER #### [address] Sodium [Moles/Vol] 128 mmol/L Low 136-145 [facility] Comment on above: Performed By: #### A HERVE STEINER #### [address] Urea nitrogen [Mass/Vol] 51 mg/dL High 7-25 [facility] Comment on above: Performed By: #### A HERVE STEINER #### [address] Complete Blood Count Auto Di ffon 02-02-2024 Basophils (Bld) [#/Vol] 0.1 10*3/uL Normal 0.0-0.2 [facility] Comment on above: Result Comment: PERF ORMED BY: [place] [address] PATHOLOGIST BRIDGE CONTRACTOR RAFA BYRNE M.D. Performed By: #### A HERVE STEINER #### [place] [address] [place] Basophils/100 WBC (Bld) 1.0 % Normal . [facility] Comment on above: Performed By: #### A HERVE STEINER #### [facility] [address] [place] [address] [place] Eosinophils (Bld) [#/Vol] 0.4 10*3/uL Normal 0.0-0.45 [facility] Comment on above: Performed By: #### A HERVE STEINER #### [facility] [address] [place] [address] [place] Eosinophils/100 WBC (Bld) 3.1 % Normal . [facility] Comment on above: Performed By: #### A HERVE STEINER #### [address] Erythrocyte distribution width (RBC) [Ratio] 17.3 % High 12.0-14.8 [facility] Comment on above: Performed By: #### A HERVE STEINER #### [address] Hematocrit (Bld) [Volume fraction] 26.9 % Low 38.8-50.0 [facility] Comment on above: Performed By: #### A HERVE STEINER #### [address] Hemoglobin (Bld) [Mass/Vol] 8.8 g/dL Low 13.0-17.0 [facility] Comment on above: Performed By: #### A HERVE STEINER #### [place] [address] [place] Lymphocytes (Bld) [#/Vol] 1.8 10*3/uL Normal 1.00-4.8 [facility] Comment on above: Performed By: #### A HERVE STEINER #### [place] [address] [place] Lymphocytes/100 WBC (Bld) 14.8 % Normal . [facility] Comment on above: Performed By: #### A HERVE STEINER #### [address] MCH (RBC) [Entitic mass] 26.1 pg Low 27.5-35.2 [facility] Comment on above: Performed By: #### A HERVE STEINER #### [facility] [address] MCV (RBC) [Entitic vol] 79.6 fL Low 83.5-101 [facility] Comment on above: Performed By: #### A HERVE STEINER #### [facility] [address] Mean Corpuscular HGB Conc 32.8 g/dL Normal 32.5-35.6 [facility] Comment on above: Performed By: #### A HERVE STEINER #### [facility] [address] Monocytes (Bld) [#/Vol] 0.6 10*3/uL Normal 0.0-0.8 [facility] Comment on above: Performed By: #### A HERVE STEINER #### [address] Monocytes/100 WBC (Bld) 5.2 % Normal . [facility] Comment on above: Performed By: #### A HERVE STEINER #### [facility] [address] Neutrophils (Bld) [#/Vol] 9.4 10*3/uL High 1.8-7.7 [facility] Comment on above: Performed By: #### A HERVE STEINER #### [facility] [address] Neutrophils/100 WBC (Bld) 75.9 % Normal . [facility] Comment on above: Performed By: #### A HERVE STEINER #### [address] NRBC% 0.0 /100{WBC} Normal 0-0.5 [facility] Comment on above: Performed By: #### A HERVE STEINER #### [address] Platelet mean volume (Bld) [Entitic vol] 7.2 fL Normal 6.6-10.1 [facility] Comment on above: Performed By: #### A HERVE STEINER #### [facility] [address] Platelets (Bld) [#/Vol] 276 10*3/uL Normal 150-450 [facility] Comment on above: Performed By: #### A HERVE STEINER #### [address] RBC (Bld) [#/Vol] 3.37 10*6/uL Low 3.90-5.60 [facility] Comment on above: Performed By: #### A HERVE STEINER #### [facility] [address] WBC (Bld) [#/Vol] 12.4 10*3/uL High 4.1-10.5 [facility] Comment on above: Performed By: #### A HERVE STEINER #### [address] Glucose Poct Glucometerson 0 02-02-2024 Glucose [Mass/Vol] 190 mg/dL Normal [facility] Comment on above: Result Comment: [facility] Glucose Reference Range is dependent on time and content of last meal. Glucose of more than 200 mg/dL in a nonstressed, ambulatory subject supports the diagnosis of Diabetes Mellitus. PERFORMED BY: [place] [address] PATHOLOGIST BRIDGE CONTRACTOR RAAF BYRNE M.D. Performed By: #### A HERVE STEINER #### [address] Commemt1 Glu2: Cleaned Meter Normal [facility] Comment on above: Result Comment: PERF ORMED BY: [place] [address] PATHOLOGIST BRIDGE CONTRACTOR RAFA BYRNE M.D. Performed By: #### G ALVARADO #### Point of Care testing , Glucose [Mass/Vol] 164 mg/dL Normal [facility] Comment on above: Result Comment: [facility] Glucose Reference Range is dependent on time and content of last meal. Glucose of more than 200 mg/dL in a nonstressed, ambulatory subject supports the diagnosis of Diabetes Mellitus. Performed By: #### G LULS #### Point of Care testing , Commemt1 Glu2: Cleaned Meter Normal [facility] Comment on above: Result Comment: PERF ORMED BY: [place] [address] PATHOLOGIST BRIDGE CONTRACTOR RAFA BYRNE M.D. Performed By: #### G LULS #### Point of Care testing , Glucose [Mass/Vol] 178 mg/dL Normal [facility] Comment on above: Result Comment: [facility] Glucose Reference Range is dependent on time [...] aPTT Coag (PPP) [Time] 36.7 s 25.1-36.5 [facility] Comment on above: A hematocrit value g reater than 55% may lead to inaccurate results in coagulation testing. Patients having hematocrit values >55% require a special collection tube for coagulation studies. Please contact the laboratory at [phone] for redraw instructions. Basic Metabolic Panelon 01-17 Anion gap [Moles/Vol] 13.6 mmol/L Normal 6.0-15.0 [facility] Comment on above: Performed By: #### R ENAL #### [facility] [address] [place] [address] [place] Calcium [Mass/Vol] 7.0 mg/dL Low 8.6-10.3 [facility] Comment on above: Performed By: #### R ENAL #### [facility] [address] [place] [address] [place] Chloride [Moles/Vol] 96 mmol/L Low 98-107 [facility] Comment on above: Performed By: #### R ENAL #### [facility] [address] [place] [address] [place] CO2 [Moles/Vol] 27.5 mmol/L Normal 21.0-31.[address] [facility] Comment on above: Performed By: #### R ENAL #### [facility] [address] [place] [address] [place] Creatinine [Mass/Vol] 2.98 mg/dL High 0.70-1.30 [facility] Comment on above: Performed By: #### R ENAL #### [place] [address] [place] Creatinine Clr Calc Pharmacy 26.53 Normal [facility] Comment on above: Result Comment: PERF ORMED BY: [place] [address] PATHOLOGIST BRIDGE CONTRACTOR RAFA BYRNE M.D. Performed By: #### R ENAL #### [place] [address] [place] GFR/1.73 sq M.predicted MDRD (S/P/Bld) [Vol rate/Area] 21.976 mL/min/{1.73_m2} Normal [facility] Comment on above: Performed By: #### R ENAL #### [place] [address] [place] Glucose [Mass/Vol] 169 mg/dL High 70-100 [facility] Comment on above: Result Comment: [place] Glucose Reference Range is dependent on time and content of last meal. Glucose of more than 200 mg/dL in a nonstressed, ambulatory subject supports the diagnosis of Diabetes Mellitus. ADA recommended reference range Performed By: #### R ENAL #### [place] [address] [place] Potassium [Moles/Vol] 4.1 mmol/L Normal 3.5-5.1 [facility] Comment on above: Performed By: #### R ENAL #### [place] [address] [place] Sodium [Moles/Vol] 133 mmol/L Low 136-145 [facility] Comment on above: Performed By: #### R ENAL #### [address] Urea nitrogen [Mass/Vol] 35 mg/dL High 7-25 [facility] Comment on above: Performed By: #### R ENAL #### [address] Coagulation Profileon 2023 aPTT Coag (Bld) [Time] 36.7 s High 25.1-36.5 [facility] Comment on above: Result Comment: A he matocrit value greater than 55% may lead to inaccurate results in coagulation testing. Patients having hematocrit values >55% require a special collection tube for coagulation studies. Please contact the laboratory at [phone] for redraw instructions. PERFORMED BY: [place] [address] PATHOLOGIST BRIDGE CONTRACTOR RAFA BYRNE M.D. Performed By: #### P P #### [address] Complete Blood Count Auto Di ffon 02-01-2024 Basophils (Bld) [#/Vol] 0.1 10*3/uL Normal 0.0-0.2 [facility] Comment on above: Result Comment: PERF ORMED BY: [place] [address] PATHOLOGIST BRIDGE CONTRACTOR RAFA BYRNE M.D. Performed By: #### R ENAL #### [address] Basophils/100 WBC (Bld) 0.9 % Normal . [facility] Comment on above: Performed By: #### R ENAL #### [place] [address] [place] Eosinophils (Bld) [#/Vol] 0.2 10*3/uL Normal 0.0-0.45 [facility] Comment on above: Performed By: #### R ENAL #### [place] [address] [place] Eosinophils/100 WBC (Bld) 2.0 % Normal . [facility] Comment on above: Performed By: #### R ENAL #### [address] Erythrocyte distribution width (RBC) [Ratio] 17.2 % High 12.0-14.8 [facility] Comment on above: Performed By: #### R ENAL #### [address] Hematocrit (Bld) [Volume fraction] 25.7 % Low 38.8-50.0 [facility] Comment on above: Performed By: #### R ENAL #### [address] Hemoglobin (Bld) [Mass/Vol] 8.7 g/dL Low 13.0-17.0 [facility] Comment on above: Performed By: #### R ENAL #### [address] Lymphocytes (Bld) [#/Vol] 1.2 10*3/uL Normal 1.00-4.8 [facility] Comment on above: Performed By: #### R ENAL #### [address] Lymphocytes/100 WBC (Bld) 10.2 % Normal . [facility] Comment on above: Performed By: #### R ENAL #### [address] MCH (RBC) [Entitic mass] 26.8 pg Low 27.5-35.2 [facility] Comment on above: Performed By: #### R ENAL #### [address] MCV (RBC) [Entitic vol] 79.4 fL Low 83.5-101 [facility] Comment on above: Performed By: #### R ENAL #### [address] Mean Corpuscular HGB Conc 33.8 g/dL Normal 32.5-35.6 [facility] Comment on above: Performed By: #### R ENAL #### [facility] [address] [place] [address] [place] Monocytes (Bld) [#/Vol] 0.6 10*3/uL Normal 0.0-0.8 [facility] Comment on above: Performed By: #### R ENAL #### [address] Monocytes/100 WBC (Bld) 4.9 % Normal . [facility] Comment on above: Performed By: #### R ENAL #### [address] Neutrophils (Bld) [#/Vol] 9.4 10*3/uL High 1.8-7.7 [facility] Comment on above: Performed By: #### R ENAL #### [address] Neutrophils/100 WBC (Bld) 82.0 % Normal . [facility] Comment on above: Performed By: #### R ENAL #### [address] NRBC% 0.0 /100{WBC} Normal 0-0.5 [facility] Comment on above: Performed By: #### R ENAL #### [address] Platelet mean volume (Bld) [Entitic vol] 7.3 fL Normal 6.6-10.1 [facility] Comment on above: Performed By: #### R ENAL #### [facility] [address] [place] [address] [place] Platelets (Bld) [#/Vol] 285 10*3/uL Normal 150-450 [facility] Comment on above: Performed By: #### R ENAL #### [facility] [address] [place] [address] RBC (Bld) [#/Vol] 3.24 10*6/uL Low 3.90-5.60 [facility] Comment on above: Performed By: #### R ENAL #### [facility] [address] WBC (Bld) [#/Vol] 11.4 10*3/uL High 4.1-10.5 [facility] Comment on above: Performed By: #### R ENAL #### [address] Glucose Poct Glucometerson 0 02-01-2024 Glucose [Mass/Vol] 222 mg/dL Normal [facility] Comment on above: Result Comment: [place] Glucose Reference Range is dependent on time and content of last meal. Glucose of more than 200 mg/dL in a nonstressed, ambulatory subject supports the diagnosis of Diabetes Mellitus. PERFORMED BY: [place] [address] PATHOLOGIST BRIDGE CONTRACTOR RAFA BYRNE M.D. Performed By: #### A HERVE STEINER #### [address] Glucose [Mass/Vol] 207 mg/dL Normal [facility] Comment on above: Result Comment: [place] Glucose Reference Range is dependent on time and content of last meal. Glucose of more than 200 mg/dL in a nonstressed, ambulatory subject supports the diagnosis of Diabetes Mellitus. PERFORMED BY: [place] [address] PATHOLOGIST BRIDGE CONTRACTOR RAFA BYRNE M.D. Performed By: #### R ENAL #### [address] Glucose [Mass/Vol] 243 mg/dL Normal [facility] Comment on above: Result Comment: [place] Glucose Reference Range is dependent on time and content of last meal. Glucose of more than 200 mg/dL in a nonstressed, ambulatory subject supports the diagnosis of Diabetes Mellitus. PERFORMED BY: [place] [address] PATHOLOGIST BRIDGE CONTRACTOR RAFA BYRNE M.D. Performed By: #### A HERVE STEINER #### [facility] [address] [place] [id number] [facility] Glucose [Mass/Vol] 202 mg/dL Normal [facility] Comment on above: Result Comment: [place] Glucose Reference Range is dependent on time and content of last meal. Glucose of more than 200 mg/dL in a nonstressed, ambulatory subject supports the diagnosis of Diabetes Mellitus. PERFORMED BY: [place] [address] PATHOLOGIST BRIDGE CONTRACTOR RAFA BYRNE M.D. Performed By: #### R ENAL #### [facility] [address] [place] [address] INR in Platelet poor plasma by Coagulation assayOrdered By: Farhan Hudson on 02-01-2024 INR Coag (PPP) [Relative time] 1.9 {INR} Normal [facility] Comment on above: INR Therapeutic Rang [...] 4.5 Performed By: #### P P #### [facility] [address] [place], [place] [id number] [facility] Prothrombin time (PT)Ordered By: Farhan Hudson on 02-01-2024 PT Coag (PPP) [Time] 21.5 s High 9.0-12.9 [facility] Comment on above: A hematocrit value g reater than 55% may lead to inaccurate results in coagulation testing. Patients having hematocrit values >55% require a special collection tube for coagulation studies. Please contact the laboratory at [phone] for redraw instructions. Result Comment: A he matocrit value greater than 55% may lead to inaccurate results in coagulation testing. Patients having hematocrit values >55% require a special collection tube for coagulation studies. Please contact the laboratory at [phone] for redraw instructions. Performed By: #### P P #### [address] Basic Metabolic Panelon 01-17 Anion gap [Moles/Vol] 11.9 mmol/L Normal 6.0-15.0 [facility] Comment on above: Performed By: #### G LULS #### Point of Care testing , Calcium [Mass/Vol] 7.0 mg/dL Low 8.6-10.3 [facility] Comment on above: Performed By: #### G LULS #### Point of Care testing , Chloride [Moles/Vol] 96 mmol/L Low 98-107 [facility] Comment on above: Performed By: #### G LULS #### Point of Care testing , CO2 [Moles/Vol] 26.9 mmol/L Normal 21.0-31.[address] [facility] Comment on above: Performed By: #### G LULS #### Point of Care testing , Creatinine [Mass/Vol] 3.23 mg/dL Significan t change up 0.70-1.30 [facility] Comment on above: Performed By: #### G LULS #### Point of Care testing , Creatinine Clr Calc Pharmacy 24.52 [facility] Comment on above: Result Comment: PERF ORMED BY: [place] [address] PATHOLOGIST BRIDGE CONTRACTOR RAFA BYRNE M.D. Performed By: #### G LULS #### Point of Care testing , GFR/1.73 sq M.predicted MDRD (S/P/Bld) [Vol rate/Area] 19.951 mL/min/{1.73_m2} [facility] Comment on above: Performed By: #### G LULS #### Point of Care testing , Glucose [Mass/Vol] 128 mg/dL High 70-100 [facility] Comment on above: Result Comment: [place] Glucose Reference Range is dependent on time and content of last meal. Glucose of more than 200 mg/dL in a nonstressed, ambulatory subject supports the diagnosis of Diabetes Mellitus. ADA recommended reference range Performed By: #### G LULS #### Point of Care testing , Potassium [Moles/Vol] 3.8 mmol/L Normal 3.5-5.1 [facility] Comment on above: Performed By: #### G LULS #### Point of Care testing , Sodium [Moles/Vol] 131 mmol/L Low 136-145 [facility] Comment on above: Performed By: #### G LULS #### Point of Care testing , Urea nitrogen [Mass/Vol] 46 mg/dL High 7-25 [facility] Comment on above: Performed By: #### G LULS #### Point of Care testing , Complete Blood Count Auto Di ffon 01-31-2024 Basophils (Bld) [#/Vol] 0.1 10*3/uL Normal 0.0-0.2 [facility] Comment on above: Result Comment: PERF ORMED BY: [place] [address] PATHOLOGIST BRIDGE CONTRACTOR RAFA BYRNE M.D. Performed By: #### R ENAL #### [facility] [address] [place] [address] [place] Basophils/100 WBC (Bld) 0.7 % Normal . [facility] Comment on above: Performed By: #### R ENAL #### [facility] [address] [place] [address] [place] Eosinophils (Bld) [#/Vol] 0.3 10*3/uL Normal 0.0-0.45 [facility] Comment on above: Performed By: #### R ENAL #### [facility] [address] [place] [address] [place] Eosinophils/100 WBC (Bld) 2.3 % Normal . [facility] Comment on above: Performed By: #### R ENAL #### [facility] [address] Erythrocyte distribution width (RBC) [Ratio] 17.5 % High 12.0-14.8 [facility] Comment on above: Performed By: #### R ENAL #### [facility] [address] Hematocrit (Bld) [Volume fraction] 25.6 % Low 38.8-50.0 [facility] Comment on above: Performed By: #### R ENAL #### [facility] [address] Hemoglobin (Bld) [Mass/Vol] 8.6 g/dL Low 13.0-17.0 [facility] Comment on above: Performed By: #### R ENAL #### [address] Lymphocytes (Bld) [#/Vol] 1.3 10*3/uL Normal 1.00-4.8 [facility] Comment on above: Performed By: #### R ENAL #### [address] Lymphocytes/100 WBC (Bld) 10.4 % Normal . [facility] Comment on above: Performed By: #### R ENAL #### [address] MCH (RBC) [Entitic mass] 26.7 pg Low 27.5-35.2 [facility] Comment on above: Performed By: #### R ENAL #### [address] MCV (RBC) [Entitic vol] 79.0 fL Low 83.5-101 [facility] Comment on above: Performed By: #### R ENAL #### [address] Mean Corpuscular HGB Conc 33.7 g/dL Normal 32.5-35.6 [facility] Comment on above: Performed By: #### R ENAL #### [address] [address] [place] Monocytes (Bld) [#/Vol] 0.6 10*3/uL Normal 0.0-0.8 [facility] Comment on above: Performed By: #### R ENAL #### [address] Monocytes/100 WBC (Bld) 4.9 % Normal . [facility] Comment on above: Performed By: #### R ENAL #### [address] Neutrophils (Bld) [#/Vol] 10.0 10*3/uL High 1.8-7.7 [facility] Comment on above: Performed By: #### R ENAL #### [address] Neutrophils/100 WBC (Bld) 81.7 % Normal . [facility] Comment on above: Performed By: #### R ENAL #### [address] NRBC% 0.0 /100{WBC} Normal 0-0.5 [facility] Comment on above: Performed By: #### R ENAL #### [address] Platelet mean volume (Bld) [Entitic vol] 7.2 fL Normal 6.6-10.1 [facility] Comment on above: Performed By: #### R ENAL #### [place] [address] [place] Platelets (Bld) [#/Vol] 254 10*3/uL Normal 150-450 [facility] Comment on above: Performed By: #### R ENAL #### [address] RBC (Bld) [#/Vol] 3.24 10*6/uL Low 3.90-5.60 [facility] Comment on above: Performed By: #### R ENAL #### [place] [address] [place] WBC (Bld) [#/Vol] 12.2 10*3/uL High 4.1-10.5 [facility] Comment on above: Performed By: #### R UZAIR #### [place] [id number] [facility] Glucose Poct Glucometerson 0 01-31-2024 Glucose [Mass/Vol] 116 mg/dL Normal [facility] Comment on above: Result Comment: [place] Glucose Reference Range is dependent on time and content of last meal. Glucose of more than 200 mg/dL in a nonstressed, ambulatory subject supports the diagnosis of Diabetes Mellitus. PERFORMED BY: [place] [address] PATHOLOGIST BRIDGE CONTRACTOR RAFA BYRNE M.D. Performed By: #### A HERVE STEINER #### [address] Glucose [Mass/Vol] 191 mg/dL Normal [facility] Comment on above: Result Comment: [facility] Glucose Reference Range is dependent on time and content of last meal. Glucose of more than 200 mg/dL in a nonstressed, ambulatory subject supports the diagnosis of Diabetes Mellitus. PERFORMED BY: [place] [address] PATHOLOGIST BRIDGE CONTRACTOR RAFA BYRNE M.D. Performed By: #### P P #### [place] [id number] [facility] Glucose [Mass/Vol] 145 mg/dL Normal [facility] Comment on above: Result Comment: [facility] Glucose Reference Range is dependent on time and content of last meal. Glucose of more than 200 mg/dL in a nonstressed, ambulatory subject supports the diagnosis of Diabetes Mellitus. PERFORMED BY: [place] [address] PATHOLOGIST BRIDGE CONTRACTOR RAFA BYRNE M.D. Performed By: #### P P #### [place] [id number] [facility] Albumin Levelon 01-30-2024 Albumin [Mass/Vol] 2.3 g/dL Low 3.5-5.7 [facility] Comment on above: Result Comment: PERF ORMED BY: [facility] [address] [place] [address] PATHOLOGIST BRIDGE CONTRACTOR RAFA BYRNE M.D. Performed By: #### G LULS #### Point of Care testing , Basic Metabolic Panelon 01-17 Anion gap [Moles/Vol] 15.3 mmol/L High 6.0-15.0 [facility] Comment on above: Performed By: #### G LULS #### Point of Care testing , Calcium [Mass/Vol] 7.1 mg/dL Low 8.6-10.3 [facility] Comment on above: Performed By: #### G LULS #### Point of Care testing , Chloride [Moles/Vol] 95 mmol/L Low 98-107 [facility] Comment on above: Performed By: #### G LULS #### Point of Care testing , CO2 [Moles/Vol] 21.9 mmol/L Normal 21.0-31.[address] [facility] Comment on above: Performed By: #### G LULS #### Point of Care testing , Creatinine [Mass/Vol] 4.57 mg/dL Significan t change up 0.70-1.30 [facility] Comment on above: Performed By: #### G LULS #### Point of Care testing , Creatinine Clr Calc Pharmacy 17.22 [facility] Comment on above: Result Comment: PERF ORMED BY: [facility] [address] [place] [address] PATHOLOGIST BRIDGE CONTRACTOR RAFA BYRNE M.D. Performed By: #### G LULS #### Point of Care testing , GFR/1.73 sq M.predicted MDRD (S/P/Bld) [Vol rate/Area] 13.156 mL/min/{1.73_m2} [facility] Comment on above: Performed By: #### G LULS #### Point of Care testing , Glucose [Mass/Vol] 144 mg/dL High 70-100 [facility] Comment on above: Result Comment: [place] om Glucose Reference Range is dependent on time and content of last meal. Glucose of more than 200 mg/dL in a nonstressed, ambulatory subject supports the diagnosis of Diabetes Mellitus. ADA recommended reference range Performed By: #### G LULS #### Point of Care testing , Potassium [Moles/Vol] 4.2 mmol/L Significan t change down 3.5-5.1 [facility] Comment on above: Performed By: #### G LULS #### Point of Care testing , Sodium [Moles/Vol] 128 mmol/L Low 136-145 [facility] Comment on above: Performed By: #### G LULS #### Point of Care testing , Urea nitrogen [Mass/Vol] 73 mg/dL Significant change up 7-25 [facility] Comment on above: Performed By: #### G LULS #### Point of Care testing , Complete Blood Count Auto Di ffon 01-30-2024 Basophils (Bld) [#/Vol] 0.1 10*3/uL Normal 0.0-0.2 [facility] Comment on above: Result Comment: PERF ORMED BY: [facility] [address] [place] [address] PATHOLOGIST BRIDGE CONTRACTOR RAFA BYRNE M.D. Performed By: #### G LULS #### Point of Care testing , Basophils/100 WBC (Bld) 1.0 % Normal . [facility] Comment on above: Performed By: #### G LULS #### Point of Care testing , Eosinophils (Bld) [#/Vol] 0.2 10*3/uL Normal 0.0-0.45 [facility] Comment on above: Performed By: #### G LULS #### Point of Care testing , Eosinophils/100 WBC (Bld) 1.7 % Normal . [facility] Comment on above: Performed By: #### G LULS #### Point of Care testing , Erythrocyte distribution width (RBC) [Ratio] 17.3 % High 12.0-14.8 [facility] Comment on above: Performed By: #### G ALVARADO #### Point of Care testing , Hematocrit (Bld) [Volume fraction] 26.3 % Low 38.8-50.0 [facility] Comment on above: Performed By: #### G EANLS #### Point of Care testing , Hemoglobin (Bld) [Mass/Vol] 8.8 g/dL Low 13.0-17.0 [facility] Comment on above: Performed By: #### Georgette MCKOYLS #### Point of Care testing , Lymphocytes (Bld) [#/Vol] 1.3 10*3/uL Normal 1.00-4.8 [facility] Comment on above: Performed By: #### Georgette MCKOYLS #### Point of Care testing , Lymphocytes/100 WBC (Bld) 9.8 % Normal . [facility] Comment on above: Performed By: #### Georgette MCKOYLS #### Point of Care testing , MCH (RBC) [Entitic mass] 26.6 pg Low 27.5-35.2 [facility] Comment on above: Performed By: #### G ALVARADO #### Point of Care testing , MCV (RBC) [Entitic vol] 79.3 fL Low 83.5-101 [facility] Comment on above: Performed By: #### Georgette MCKOYLS #### Point of Care testing , Mean Corpuscular HGB Conc 33.5 g/dL Normal 32.5-35.6 [facility] Comment on above: Performed By: #### Georgette CHILDERS #### Point of Care testing , Monocytes (Bld) [#/Vol] 0.5 10*3/uL Normal 0.0-0.8 [facility] Comment on above: Performed By: #### Georgette CHILDERS #### Point of Care testing , Monocytes/100 WBC (Bld) 3.8 % Normal . [facility] Comment on above: Performed By: #### Georgette CHILDERS #### Point of Care testing , Neutrophils (Bld) [#/Vol] 11.3 10*3/uL High 1.8-7.7 [facility] Comment on above: Performed By: #### G EANLS #### Point of Care testing , Neutrophils/100 WBC (Bld) 83.7 % Normal . [facility] Comment on above: Performed By: #### G EANLS #### Point of Care testing , NRBC% 0.0 /100{WBC} Normal 0-0.5 [facility] Comment on above: Performed By: #### G EANLS #### Point of Care testing , Platelet mean volume (Bld) [Entitic vol] 7.5 fL Normal 6.6-10.1 [facility] Comment on above: Performed By: #### G EANLS #### Point of Care testing , Platelets (Bld) [#/Vol] 279 10*3/uL Normal 150-450 [facility] Comment on above: Performed By: #### G EANLS #### Point of Care testing , RBC (Bld) [#/Vol] 3.32 10*6/uL Low 3.90-5.60 [facility] Comment on above: Performed By: #### G EANLS #### Point of Care testing , WBC (Bld) [#/Vol] 13.6 10*3/uL High 4.1-10.5 [facility] Comment on above: Performed By: #### G EANLS #### Point of Care testing , Glucose Poct Glucometerson 0 01-30-2024 Glucose [Mass/Vol] 220 mg/dL Normal [facility] Comment on above: Result Comment: [facility] Glucose Reference Range is dependent on time and content of last meal. Glucose of more than 200 mg/dL in a nonstressed, ambulatory subject supports the diagnosis of Diabetes Mellitus. PERFORMED BY: [address] [place] [address] PATHOLOGIST BRIDGE CONTRACTOR RAFA BYRNE M.D. Performed By: #### G LULS #### Point of Care testing , Glucose [Mass/Vol] 176 mg/dL Normal [facility] Comment on above: Result Comment: [facility] Glucose Reference Range is dependent on time and content of last meal. Glucose of more than 200 mg/dL in a nonstressed, ambulatory subject supports the diagnosis of Diabetes Mellitus. PERFORMED BY: [place] [address] PATHOLOGIST BRIDGE CONTRACTOR RAFA BYRNE M.D. Performed By: #### P P #### [address] Glucose [Mass/Vol] 294 mg/dL Normal [facility] Comment on above: Result Comment: [facility] Glucose Reference Range is dependent on time and content of last meal. Glucose of more than 200 mg/dL in a nonstressed, ambulatory subject supports the diagnosis of Diabetes Mellitus. PERFORMED BY: [place] [address] PATHOLOGIST BRIDGE CONTRACTOR RAFA BYRNE M.D. Performed By: #### G LULS #### Point of Care testing , Glucose [Mass/Vol] 170 mg/dL Normal [facility] Comment on above: Result Comment: [facility] Glucose Reference Range is dependent on time and content of last meal. Glucose of more than 200 mg/dL in a nonstressed, ambulatory subject supports the diagnosis of Diabetes Mellitus. PERFORMED BY: [place] [address] PATHOLOGIST BRIDGE CONTRACTOR RAFA BYRNE M.D. Performed By: #### G LULS #### Point of Care testing , Hepatitis Acute Panelon 01-17 HBsAg Screen Negative Normal Negative [facility] Comment on above: Performed By: #### A HERVE STEINER #### [address] Hepatitis A Antibody IgM Negative Normal Negative [facility] Comment on above: Performed By: #### A HERVE STEINER #### [address] Hepatitis B Core Antibody IgM Negative Normal Negative [facility] Comment on above: Performed By: #### A HERVE STEINER #### [address] Hepatitis C Virus Antibody Non-Reactive Normal Non Reactive [facility] Comment on above: Performed By: #### A HERVE STEINER #### [address] Interpretation Hepatitis C Normal . [facility] Comment on above: Result Comment: Not infected with HCV unless early or acute infection is suspected (which may be delayed in an immunocompromised individual), or other evidence exists to indicate HCV infection. Performed By: #### A HERVE STEINER #### [address] Hepatitis B Core Antibodyon 01-30-2024 Hepatitis B Core Antibody Negative Normal Negative [facility] Comment on above: Result Comment: Perf ormed at: - [facility] [address] [id number] [employer] Man: Alexis Winslow PhD, Phone: [phone] PERFORMED BY: [place] [address] PATHOLOGIST BRIDGE CONTRACTOR RAFA BYRNE M.D. Performed By: #### P P #### [address] Hepatitis B Surface Antibody on 01-30-2024 Hepatitis B Surface Antibody Non-Reactive Normal . [facility] Comment on above: Result Comment: Non Reactive: Inconsistent with immunity, less than 10 mIU/mL Reactive: Consistent with immunity, greater than 9.9 mIU/mL Performed By: #### P P #### [address] Hepatitis B virus surface Ab [Presence] in SerumOrdered By: Lia Law on 01-30-2024 HBV surface Ab Ql (S) Non-Reactive . [facility] Comment on above: Non Reactive: Incons istent with immunity, less than 10 mIU/mL Reactive: Consistent with immunity, greater than 9.9 mIU/mL Hepatitis B virus surface Ag [Presence] in Serum or Plasma by ImmunoassayOrdered By: Lia Law on 01-30-2024 HBV surface Ag IA Ql Negative Negative [facility] Hepatitis C virus IgG Ab [Pr esence] in Serum or Plasma by ImmunoassayOrdered By: Lia Law on 01-30-2024 HCV IgG IA Ql Non-Reactive Non Reactive [facility] Hepatitis C virus RNA [Units /volume] (viral load) in Serum or Plasma by RADHA with probOrdered By: Lia Law on 01-30-2024 HCV RNA RADHA+probe Qn N/A [facility] Hepatitis C virus RNA [log u nits/volume] (viral load) in Serum or Plasma by RADHA withOrdered By: Lia Law on 01-30-2024 HCV RNA RADHA+probe [Log units/Vol] N/A [facility] No Panel InformationOrdered By: Lia Law on 01-30-2024 Hepatitis A IgM Antibody Negative Negative [facility] Hepatitis B Core IgM Antibody Negative Negative [facility] Hepatitis B Core Total Antibody Negative Negative [facility] Comment on above: Performed at: [address] [id number] Director: Alexis Winslow PhD, Phone: [phone] Hepatitis C Interpretation See comment . [facility] Comment on above: Not infected with HC V unless early or acute infection issuspected (which may be delayed in an immunocompromisedindividual), or other evidence exists to indicate HCVinfection. Total Proteinon 01-30-2024 Protein [Mass/Vol] 6.6 g/dL Normal 6.4-8.9 [facility] Comment on above: Performed By: #### G LULS #### Point of Care testing , US arterial pvr rest Sebastian US arterial pvr rest [facility] [place] [address] Ultrasound Report Signed Patient: Adwoa Porter MR#: [id number] 7 : 1955 Acct:[id number] Age/Sex: 68 / M ADM Date: 01/28/24 Loc: Room: [address] [place] [address] Type: ADM IN Attending Dr: Farhan Hudson DO Ordering Provider: Raul Bravo MD Date of Service: 01/30/24 US/US arterial pvr rest LE: Foot wound Copies to: MD Farhan Guevara DO LOWER EXTREMITY SEGMENTAL ARTERIAL DOPSCAN (PVR) [...] Raul Bravo MD01/30/2024 2:51 PM Dictation Location: [place] [address] Tech: Marline Fishkatt Transcribed By: CONSUELO 01/30/24 1451 Dictated By: Raul Bravo MD 01/30/24 1450 Signed By: 01/30/24 1451 Normal [facility] Aerobic cultureOrdered By: Ayo Hudson on 01-29-2024 Bacteria identified Aer cx Nom (Unsp spec) 2 Days [facility] Amorphous urine sedimentOrde red By: Farhan Hudson on 01-29-2024 Amorphous sediment LM Ql (Urine sed) 2+ [LPF] [facility] Automated erythrocytes count in urine sediment (number/area)Ordered By: Farhan Hudson on 01-29-2024 RBC Auto (Urine sed) [#/Area] 20-49 [HPF] 0-4 [facility] Automated leukocytes count i n urine sediment (number/area)Ordered By: Farhan Hudson on 01-29-2024 WBC Auto (Urine sed) [#/Area] 5-9 [HPF] 0-4 [facility] Basic Metabolic Panelon 01-17 Anion gap [Moles/Vol] 18.7 mmol/L High 6.0-15.0 [facility] Comment on above: Performed By: #### G LULS #### Point of Care testing , Calcium [Mass/Vol] 7.3 mg/dL Low 8.6-10.3 [facility] Comment on above: Performed By: #### G LULS #### Point of Care testing , Chloride [Moles/Vol] 95 mmol/L Low 98-107 [facility] Comment on above: Performed By: #### G LULS #### Point of Care testing , CO2 [Moles/Vol] 15.4 mmol/L Low 21.0-31.[address] [facility] Comment on above: Performed By: #### G LULS #### Point of Care testing , Creatinine [Mass/Vol] 5.37 mg/dL High 0.70-1.30 [facility] Comment on above: Performed By: #### G LULS #### Point of Care testing , Creatinine Clr Calc Pharmacy 14.89 [facility] Comment on above: Result Comment: PERF ORMED BY: [facility] [address] [place] [address] PATHOLOGIST BRIDGE CONTRACTOR RAFA BYRNE M.D. Performed By: #### G LULS #### Point of Care testing , GFR/1.73 sq M.predicted MDRD (S/P/Bld) [Vol rate/Area] 10.840 mL/min/{1.73_m2} [facility] Comment on above: Performed By: #### G LULS #### Point of Care testing , Glucose [Mass/Vol] 211 mg/dL High 70-100 [facility] Comment on above: Result Comment: [place] Glucose Reference Range is dependent on time and content of last meal. Glucose of more than 200 mg/dL in a nonstressed, ambulatory subject supports the diagnosis of Diabetes Mellitus. ADA recommended reference range Performed By: #### G LULS #### Point of Care testing , Potassium [Moles/Vol] 6.1 mmol/L Off scale high 3.5-5.1 [facility] Comment on above: Result Comment: Crit ical Result Called to and read back by: LEXI JOSEPH at: 01/29/2024 06:33:36 by:OSCAR Performed By: #### G LULS #### Point of Care testing , Sodium [Moles/Vol] 123 mmol/L Off scale low 136-145 [facility] Comment on above: Result Comment: Crit ical Result Called to and read back by: LEXI JOSEPH at: 01/29/2024 06:33:36 by:OSCAR Performed By: #### G LULS #### Point of Care testing , Urea nitrogen [Mass/Vol] 105 mg/dL High 7-25 [facility] Comment on above: Performed By: #### G LULS #### Point of Care testing , Bilirubin Test strip Ql (U)O rdered By: Farhan Hudson on 01-29-2024 Bilirubin Ql (U) Negative Negative [facility] Clostridium Difficileon 01-17 Clostridium Difficile Negative Normal Negative [facility] Comment on above: Order Comment: > or = to 3 loose/watery stools in the last 24 HRS? Y Is patient on promotility agents or tube feeding? N Result Comment: Test ing performed by RT-PCR PERFORMED BY: [place] [address] [place] [address] PATHOLOGIST BRIDGE CONTRACTOR RAFA BYRNE M.D. Performed By: #### G LULS #### Point of Care testing , Coagulation Profileon 2023 aPTT Coag (Bld) [Time] 43.4 s High 25.1-36.5 [facility] Comment on above: Result Comment: A he matocrit value greater than 55% may lead to inaccurate results in coagulation testing. Patients having hematocrit values >55% require a special collection tube for coagulation studies. Please contact the laboratory at [phone] for redraw instructions. PERFORMED BY: [facility] [address] [place] [address] PATHOLOGIST BRIDGE CONTRACTOR RAFA BYRNE M.D. Performed By: #### G LULS #### Point of Care testing , INR Coag (PPP) [Relative time] 2.6 {INR} Normal [facility] Comment on above: Result Comment: INR [...] Coag (PPP) [Time] 29.2 s High 9.0-12.9 [facility] Comment on above: Result Comment: A he matocrit value greater than 55% may lead to inaccurate results in coagulation testing. Patients having hematocrit values >55% require a special collection tube for coagulation studies. Please contact the laboratory at [phone] for redraw instructions. Performed By: #### G LULS #### Point of Care testing , Color Auto (U)Ordered By: Nidia Hudson on 01-29-2024 Color (U) Dark yellow Yellow [facility] Complete Blood Count Auto Di ffon 01-29-2024 Basophils (Bld) [#/Vol] 0.1 10*3/uL Normal 0.0-0.2 [facility] Comment on above: Result Comment: PERF ORMED BY: [facility] [address] [place] [address] PATHOLOGIST BRIDGE CONTRACTOR RAFA BYRNE M.D. Performed By: #### G LULS #### Point of Care testing , Basophils/100 WBC (Bld) 0.7 % Normal . [facility] Comment on above: Performed By: #### G LULS #### Point of Care testing , Eosinophils (Bld) [#/Vol] 0.2 10*3/uL Normal 0.0-0.45 [facility] Comment on above: Performed By: #### G LULS #### Point of Care testing , Eosinophils/100 WBC (Bld) 1.1 % Normal . [facility] Comment on above: Performed By: #### G LULS #### Point of Care testing , Erythrocyte distribution width (RBC) [Ratio] 17.4 % High 12.0-14.8 [facility] Comment on above: Performed By: #### G EANLS #### Point of Care testing , Hematocrit (Bld) [Volume fraction] 29.5 % Low 38.8-50.0 [facility] Comment on above: Performed By: #### G EANLS #### Point of Care testing , Hemoglobin (Bld) [Mass/Vol] 9.9 g/dL Low 13.0-17.0 [facility] Comment on above: Performed By: #### G EANLS #### Point of Care testing , Lymphocytes (Bld) [#/Vol] 1.3 10*3/uL Normal 1.00-4.8 [facility] Comment on above: Performed By: #### G EANLS #### Point of Care testing , Lymphocytes/100 WBC (Bld) 6.8 % Normal . [facility] Comment on above: Performed By: #### G EANLS #### Point of Care testing , MCH (RBC) [Entitic mass] 26.7 pg Low 27.5-35.2 [facility] Comment on above: Performed By: #### G EANLS #### Point of Care testing , MCV (RBC) [Entitic vol] 79.7 fL Low 83.5-101 [facility] Comment on above: Performed By: #### G EANLS #### Point of Care testing , Mean Corpuscular HGB Conc 33.5 g/dL Normal 32.5-35.6 [facility] Comment on above: Performed By: #### G EANLS #### Point of Care testing , Monocytes (Bld) [#/Vol] 0.5 10*3/uL Normal 0.0-0.8 [facility] Comment on above: Performed By: #### G EANLS #### Point of Care testing , Monocytes/100 WBC (Bld) 2.7 % Normal . [facility] Comment on above: Performed By: #### G EANLS #### Point of Care testing , Neutrophils (Bld) [#/Vol] 16.7 10*3/uL High 1.8-7.7 [facility] Comment on above: Performed By: #### G ALVARADO #### Point of Care testing , Neutrophils/100 WBC (Bld) 88.7 % Normal . [facility] Comment on above: Performed By: #### G EANLS #### Point of Care testing , NRBC% 0.0 /100{WBC} Normal 0-0.5 [facility] Comment on above: Performed By: #### G EANLS #### Point of Care testing , Platelet mean volume (Bld) [Entitic vol] 7.8 fL Normal 6.6-10.1 [facility] Comment on above: Performed By: #### G ALVARADO #### Point of Care testing , Platelets (Bld) [#/Vol] 326 10*3/uL Normal 150-450 [facility] Comment on above: Performed By: #### G ALVARADO #### Point of Care testing , RBC (Bld) [#/Vol] 3.71 10*6/uL Low 3.90-5.60 [facility] Comment on above: Performed By: #### G ALVARADO #### Point of Care testing , WBC (Bld) [#/Vol] 18.8 10*3/uL High 4.1-10.5 [facility] Comment on above: Performed By: #### G ALVARADO #### Point of Care testing , Dipstick and Microscopicon 0 01-29-2024 Amorphous Sediment,Urine 2+ Normal [facility] Comment on above: Order Comment: Name Collection Type:: Voided Performed By: #### P P #### [facility] [address] [place] [address] [place] Appearance (U) Cloudy Critically abnormal Clear [facility] Comment on above: Order Comment: Name Collection Type:: Voided Performed By: #### P P #### [facility] [address] [place] [address] [place] Bacteria,Urine Rare High None Seen [facility] Comment on above: Order Comment: Name Collection Type:: Voided Performed By: #### P P #### [facility] [address] [place] [address] [place] Bilirubin,Urine Negative Normal Negative [facility] Comment on above: Order Comment: Name Collection Type:: Voided Performed By: #### P P #### [facility] [address] [place] [address] [place] Color (U) Dark Yellow Critically abnormal Yellow [facility] Comment on above: Order Comment: Name Collection Type:: Voided Performed By: #### P P #### [facility] [address] [place] [address] Glucose Ql (U) 500 mg/dL High Normal [facility] Comment on above: Order Comment: Name Collection Type:: Voided Performed By: #### P P #### [facility] [address] [place] [address] [place] Hyaline Casts,Urine 0-8 Normal 0-8 [facility] Comment on above: Order Comment: Name Collection Type:: Voided Performed By: #### P P #### [facility] [address] [place] [address] Ketones Ql (U) Trace High Negative [facility] Comment on above: Order Comment: Name Collection Type:: Voided Performed By: #### P P #### [facility] [address] [place] [address] Leukocyte esterase Test strip Ql (U) 3+ High Negative [facility] Comment on above: Order Comment: Name Collection Type:: Voided Performed By: #### P P #### [facility] [address] [place] [address] [place] Nitrite,Urine Negative Normal Negative [facility] Comment on above: Order Comment: Name Collection Type:: Voided Performed By: #### P P #### [facility] [address] [place] [address] [place] Occult Blood,Urine 3+ High Negative [facility] Comment on above: Order Comment: Name Collection Type:: Voided Result Comment: PERF ORMED BY: [place] [address] PATHOLOGIST BRIDGE CONTRACTOR RAFA BYRNE M.D. Performed By: #### P P #### [address] pH (U) 5.0 [pH] Normal 5.0-9.0 [facility] Comment on above: Order Comment: Name Collection Type:: Voided Performed By: #### P P #### [address] Protein (U) [Mass/Vol] 100 mg/dL High Negative [facility] Comment on above: Order Comment: Name Collection Type:: Voided Performed By: #### P P #### [address] RBC,Urine 20-49 High 0-4 [facility] Comment on above: Order Comment: Name Collection Type:: Voided Performed By: #### P P #### [address] Specificy Malone,Urine 1.019 Normal 1.001-1.03 0 [facility] Comment on above: Order Comment: Name Collection Type:: Voided Performed By: #### P P #### [address] Squamous Epithelial Cell,Urine 0-1 Normal 0-2 [facility] Comment on above: Order Comment: Name Collection Type:: Voided Performed By: #### P P #### [address] Urobilinogen,Urine Normal Normal Normal [facility] Comment on above: Order Comment: Name Collection Type:: Voided Performed By: #### P P #### [address] WBC,Urine 5-9 High 0-4 [facility] Comment on above: Order Comment: Name Collection Type:: Voided Performed By: #### P P #### [address] Yeast,Urine Budding Yeast Critically abnormal None Seen [facility] Comment on above: Order Comment: Name Collection Type:: Voided Result Comment: PERF ORMED BY: [place] [id number] PATHOLOGIST BRIDGE CONTRACTOR RAFA BYRNE M.D. Performed By: #### P P #### [place] [id number] [facility] ECG 12 lead ECGon 01-29-2024 ECG 12 lead ECG [facility] [place] [address] [place] [address] Electrocardiograph Report Signed Patient: Adwoa Porter MR#: [id number] 7 : 1955 Acct:[id number] Age/Sex: 68 / M ADM Date: 01/28/24 Loc: Room: [address] [place] [address] Type: ADM IN Attending Dr: Farhan Hudson [...] David Root MD 0 01/30/24 1202 Normal [facility] Center Glucose Poct Glucometerson 0 01-29-2024 Glucose [Mass/Vol] 256 mg/dL Normal [facility] Comment on above: Result Comment: [place] Glucose Reference Range is dependent on time and content of last meal. Glucose of more than 200 mg/dL in a nonstressed, ambulatory subject supports the diagnosis of Diabetes Mellitus. PERFORMED BY: [address] [place] [address] PATHOLOGIST BRIDGE CONTRACTOR RAFA BYRNE M.D. Performed By: #### P P #### [facility] [address] Glucose [Mass/Vol] 236 mg/dL Normal [facility] Comment on above: Result Comment: [place] om Glucose Reference Range is dependent on time and content of last meal. Glucose of more than 200 mg/dL in a nonstressed, ambulatory subject supports the diagnosis of Diabetes Mellitus. PERFORMED BY: [place] [address] PATHOLOGIST BRIDGE CONTRACTOR RAFA BYRNE M.D. Performed By: #### G LULS #### Point of Care testing , Glucose [Mass/Vol] 214 mg/dL Normal [facility] Comment on above: Result Comment: [place] Glucose Reference Range is dependent on time and content of last meal. Glucose of more than 200 mg/dL in a nonstressed, ambulatory subject supports the diagnosis of Diabetes Mellitus. PERFORMED BY: [place] [address] PATHOLOGIST BRIDGE CONTRACTOR RAFA BYRNE M.D. Performed By: #### G LULS #### Point of Care testing , Glucose [Mass/Vol] 273 mg/dL Normal [facility] Comment on above: Result Comment: [place] om Glucose Reference Range is dependent on time and content of last meal. Glucose of more than 200 mg/dL in a nonstressed, ambulatory subject supports the diagnosis of Diabetes Mellitus. PERFORMED BY: [place] [address] PATHOLOGIST BRIDGE CONTRACTOR RAFA BYRNE M.D. Performed By: #### P P #### [place] [address] [place] Glucose [Mass/Vol] 255 mg/dL Normal [facility] Comment on above: Result Comment: [place] om Glucose Reference Range is dependent on time and content of last meal. Glucose of more than 200 mg/dL in a nonstressed, ambulatory subject supports the diagnosis of Diabetes Mellitus. PERFORMED BY: [address] [place] [address] PATHOLOGIST BRIDGE CONTRACTOR RAFA BYRNE M.D. Performed By: #### G LUCAROL #### Point of Care testing , Ketones Auto test strip (U) [Mass/Vol]Ordered By: Farhan Hudson on 01-29-2024 Ketones (U) [Mass/Vol] Trace Negative [facility] Laboratory - UrinalysisOrder ed By: Farhan Hudson on 01-29-2024 Hyaline casts LM Ql (Urine sed) 0-8 [LPF] 0-8 [facility] Nitrite Test strip Ql (U)Ord ered By: Farhan Hudson on 01-29-2024 Nitrite Ql (U) Negative Negative [facility] Protein Auto test strip (U) [Mass/Vol]Ordered By: Farhan Hudson on 01-29-2024 Protein (U) [Mass/Vol] 100 mg/dL Negative [facility] Specific gravity Auto test s trip (U) [Rel density]Ordered By: Farhan Hudson on 01-29-2024 Specific gravity (U) [Rel density] 1.019 1.001-1.03 0 [facility] Squamous epithelial cells de tection in urine sediment by light microscopyOrdered By: Farhan Hudson on 01-29-2024 Epithelial cells.squamous LM Ql (Urine sed) 0-1 [HPF] 0-2 [facility] Superficial Wound Cultureon 01-29-2024 Superficial Wound Culture Light Normal Skin Cedric 2 Days PERFORMED BY: [address] [address] PATHOLOGIST BRIDGE CONTRACTOR RAFA BYRNE M.D. Normal [facility] Comment on above: Performed By: #### G LULS #### Point of Care testing , Urine Cultureon 01-29-2024 Bacteria identified Cx Nom (U) Results called at 0841 on 02/02/24 ORGANISM: Klebsiella variicola (O:KLEVAR) [place] Count 15,000 Organism Comments Multidrug Resistant Organism [...] RESISTANT TO ALL B-LACTAM DRUGS. PERFORMED BY: [place] [address] PATHOLOGIST BRIDGE CONTRACTOR RAFA BYRNE M.D. [facility] Comment on above: Performed By: #### P P #### [address] Urine bacteria detection by automated methodOrdered By: Farhan Hudson on 01-29-2024 Bacteria Auto Ql (U) Rare None Seen [facility] Urine clarity by refractomet ry automatedOrdered By: Farhan Hudson on 01-29-2024 Clarity Refractometry automated (U) Cloudy Clear [facility] Urine culture routineOrdered By: Farhan Hudson on 01-29-2024 Bacteria identified Cx Nom (U) Klebsiella variicola [facility] Urine glucose measurement by automated test strip (mass/volume)Ordered By: Farhan Hudson on 01-29-2024 Glucose Auto test strip (U) [Mass/Vol] 500 mg/dL Normal [facility] Urine hemoglobin detection b y automated test stripOrdered By: Farhan Hudson on 01-29-2024 Hemoglobin Auto test strip Ql (U) 3+ Negative [facility] Urine leukocyte esterase det ection by automated test stripOrdered By: Farhan Hudson on 01-29-2024 Leukocyte esterase Auto test strip Ql (U) 3+ Negative [facility] Urobilinogen Auto test strip (U) [Mass/Vol]Ordered By: Farhan Hudson on 01-29-2024 Urobilinogen (U) [Mass/Vol] Normal mg/dL Normal [facility] Yeast detection in urine sed iment by light microscopyOrdered By: Farhan Hudson on 01-29-2024 Yeast LM Ql (Urine sed) Budding yeast [HPF] None Seen [facility] pH Auto test strip (U)Ordere d By: Farhan Hudson on 01-29-2024 pH (U) 5.0 [pH] 5.0-9.0 [facility] Amikacin [Mass/volume] in Se rum or Plasma --randomOrdered By: Farhan Hudson on 01-28-2024 Amikacin random [Mass/Vol] See comment [facility] Comment on above: See report. Scanned copy available in EMR. Amikacin, Random (CCF)on Amikacin, Random (CCF) Normal [facility] Comment on above: Result Comment: See report. Scanned copy available in EMR. PERFORMED BY: [place] [address] PATHOLOGIST BRIDGE CONTRACTOR RAFA BYRNE M.D. Performed By: #### A HERVE STEINER #### [address] B-Type Natriuretic Peptideon 01-28-2024 Natriuretic peptide B (Bld) [Mass/Vol] 1652.0 pg/mL High 5-100 [facility] Comment on above: Result Comment: PERF ORMED BY: [place] [address] PATHOLOGIST BRIDGE CONTRACTOR RAFA BYRNE M.D. Performed By: #### G ALVARADO #### Point of Care testing , Clostridioides difficile tox in B tcdB gene [Presence] in Stool by RADHA with probe deteOrdered By: Farhan Hudson on 01-28-2024 C. difficile toxin B tcdB gene RADHA+probe Ql (Stl) Negative Negative [facility] Comment on above: Testing performed by RT-PCR Complete Blood Count Auto Di ffon 01-28-2024 Basophils (Bld) [#/Vol] 0.1 10*3/uL Normal 0.0-0.2 [facility] Comment on above: Result Comment: PERF ORMED BY: [place] [address] PATHOLOGIST BRIDGE CONTRACTOR RAFA BYRNE M.D. Performed By: #### P P #### [address] Basophils/100 WBC (Bld) 0.4 % Normal . [facility] Comment on above: Performed By: #### P P #### [address] Eosinophils (Bld) [#/Vol] 0.3 10*3/uL Normal 0.0-0.45 [facility] Comment on above: Performed By: #### P P #### [address] Eosinophils/100 WBC (Bld) 1.6 % Normal . [facility] Comment on above: Performed By: #### P P #### [address] Erythrocyte distribution width (RBC) [Ratio] 17.8 % High 12.0-14.8 [facility] Comment on above: Performed By: #### P P #### [address] Hematocrit (Bld) [Volume fraction] 31.5 % Low 38.8-50.0 [facility] Comment on above: Performed By: #### P P #### [address] Hemoglobin (Bld) [Mass/Vol] 10.3 g/dL Low 13.0-17.0 [facility] Comment on above: Performed By: #### P P #### [address] Lymphocytes (Bld) [#/Vol] 1.3 10*3/uL Normal 1.00-4.8 [facility] Comment on above: Performed By: #### P P #### [address] Lymphocytes/100 WBC (Bld) 6.5 % Normal . [facility] Comment on above: Performed By: #### P P #### [address] MCH (RBC) [Entitic mass] 26.3 pg Low 27.5-35.2 [facility] Comment on above: Performed By: #### P P #### [address] MCV (RBC) [Entitic vol] 80.4 fL Low 83.5-101 [facility] Comment on above: Performed By: #### P P #### [address] Mean Corpuscular HGB Conc 32.8 g/dL Normal 32.5-35.6 [facility] Comment on above: Performed By: #### P P #### [address] Monocytes (Bld) [#/Vol] 0.7 10*3/uL Normal 0.0-0.8 [facility] Comment on above: Performed By: #### P P #### [address] Monocytes/100 WBC (Bld) 3.5 % Normal . [facility] Comment on above: Performed By: #### P P #### [address] Neutrophils (Bld) [#/Vol] 18.1 10*3/uL High 1.8-7.7 [facility] Comment on above: Performed By: #### P P #### [address] Neutrophils/100 WBC (Bld) 88.0 % Normal . [facility] Comment on above: Performed By: #### P P #### [address] NRBC% 0.1 /100{WBC} Normal 0-0.5 [facility] Comment on above: Performed By: #### P P #### [address] Platelet mean volume (Bld) [Entitic vol] 7.9 fL Normal 6.6-10.1 [facility] Comment on above: Performed By: #### P P #### [address] Platelets (Bld) [#/Vol] 337 10*3/uL Normal 150-450 [facility] Comment on above: Performed By: #### P P #### [address] RBC (Bld) [#/Vol] 3.92 10*6/uL Normal 3.90-5.60 [facility] Comment on above: Performed By: #### P P #### [address] WBC (Bld) [#/Vol] 20.6 10*3/uL High 4.1-10.5 [facility] Comment on above: Performed By: #### P P #### [address] Comprehensive Metabolic Pane bola 01-28-2024 Albumin [Mass/Vol] 2.6 g/dL Low 3.5-5.7 [facility] Comment on above: Performed By: #### G LULS #### Point of Care testing , Albumin/Globulin [Mass ratio] 0.5 {ratio} Normal [facility] Comment on above: Performed By: #### G LULS #### Point of Care testing , ALP [Catalytic activity/Vol] 183 U/L High 34-104 [facility] Comment on above: Performed By: #### G ALVARADO #### Point of Care testing , ALT [Catalytic activity/Vol] 32 U/L Normal 7-52 [facility] Comment on above: Performed By: #### G EANLS #### Point of Care testing , Anion gap [Moles/Vol] 18.2 mmol/L High 6.0-15.0 [facility] Comment on above: Performed By: #### G EANLS #### Point of Care testing , AST [Catalytic activity/Vol] 26 U/L Normal 13-39 [facility] Comment on above: Performed By: #### G ALVARADO #### Point of Care testing , Bilirubin [Mass/Vol] 0.4 mg/dL Normal 0.3-1.0 [facility] Comment on above: Performed By: #### Georgette CHILDERS #### Point of Care testing , Calcium [Mass/Vol] 7.3 mg/dL Low 8.6-10.3 [facility] Comment on above: Performed By: #### Georgette CHILDERS #### Point of Care testing , Chloride [Moles/Vol] 94 mmol/L Low 98-107 [facility] Comment on above: Performed By: #### Georgette CHILDERS #### Point of Care testing , CO2 [Moles/Vol] 17.6 mmol/L Low 21.0-31.[address] [facility] Comment on above: Performed By: #### Georgette CHILDERS #### Point of Care testing , Creatinine [Mass/Vol] 5.14 mg/dL High 0.70-1.30 [facility] Comment on above: Performed By: #### G ALVARADO #### Point of Care testing , Creatinine Clr Calc Pharmacy 15.56 [facility] Comment on above: Performed By: #### G EANLS #### Point of Care testing , GFR/1.73 sq M.predicted MDRD (S/P/Bld) [Vol rate/Area] 11.425 mL/min/{1.73_m2} [facility] Comment on above: Performed By: #### G ALVARADO #### Point of Care testing , Globulin (S) [Mass/Vol] 4.8 g/dL Normal [facility] Comment on above: Performed By: #### G LULS #### Point of Care testing , Glucose [Mass/Vol] 196 mg/dL High 70-100 [facility] Comment on above: Result Comment: [place] om Glucose Reference Range is dependent on time and content of last meal. Glucose of more than 200 mg/dL in a nonstressed, ambulatory subject supports the diagnosis of Diabetes Mellitus. ADA recommended reference range Performed By: #### G LULS #### Point of Care testing , Potassium [Moles/Vol] 5.8 mmol/L High 3.5-5.1 [facility] Comment on above: Performed By: #### G EANLS #### Point of Care testing , Protein [Mass/Vol] 7.4 g/dL Normal 6.4-8.9 [facility] Comment on above: Performed By: #### G LULS #### Point of Care testing , Sodium [Moles/Vol] 124 mmol/L Off scale low 136-145 [facility] Comment on above: Result Comment: Crit ical Result Called to and read back by: JORJE SALINAS at: 01/28/2024 22:55:22 by:DEE Performed By: #### G LULS #### Point of Care testing , Urea nitrogen [Mass/Vol] 93 mg/dL High 7-25 [facility] Comment on above: Performed By: #### G LULS #### Point of Care testing , Glucose Poct Glucometerson 0 01-28-2024 Glucose [Mass/Vol] 232 mg/dL Normal [facility] Comment on above: Result Comment: [place] om Glucose Reference Range is dependent on time and content of last meal. Glucose of more than 200 mg/dL in a nonstressed, ambulatory subject supports the diagnosis of Diabetes Mellitus. PERFORMED BY: [facility] [address] [place] [address] PATHOLOGIST BRIDGE CONTRACTOR RAFA BYRNE M.D. Performed By: #### G LULS #### Point of Care testing , Magnesiumon 01-28-2024 Magnesium [Mass/Vol] 2.2 mg/dL Normal 1.9-2.7 [facility] Comment on above: Result Comment: PERF ORMED BY: [facility] [address] [place] [address] PATHOLOGIST BRIDGE CONTRACTOR RAFA BYRNE M.D. Performed By: #### G LULS #### Point of Care testing , Magnesium [Mass/volume] in S mary or PlasmaOrdered By: Farhan Hudson on 01-28-2024 Magnesium [Mass/Vol] 2.2 mg/dL 1.9-2.7 [facility] Natriuretic peptide B [Mass/ Vol]Ordered By: Farhan Hudson on 01-28-2024 Natriuretic peptide B (Bld) [Mass/Vol] 1652.0 pg/mL 5-100 [facility] Partial Thromboplastin Timeo n 01-28-2024 aPTT Coag (Bld) [Time] 47.6 s High 25.1-36.5 [facility] Comment on above: Result Comment: A he matocrit value greater than 55% may lead to inaccurate results in coagulation testing. Patients having hematocrit values >55% require a special collection tube for coagulation studies. Please contact the laboratory at [phone] for redraw instructions. PERFORMED BY: [facility] [address] [place] [address] PATHOLOGIST BRIDGE CONTRACTOR RAFA BYRNE M.D. Performed By: #### G LULS #### Point of Care testing , Prothrombin Time INRon 01-27 INR Coag (PPP) [Relative time] 2.5 {INR} Normal [facility] Comment on above: Result Comment: INR [...] Coag (PPP) [Time] 28.3 s High 9.0-12.9 [facility] Comment on above: Result Comment: A he matocrit value greater than 55% may lead to inaccurate results in coagulation testing. Patients having hematocrit values >55% require a special collection tube for coagulation studies. Please contact the laboratory at [phone] for redraw instructions. Performed By: #### G LULS #### Point of Care testing , Office Visiton 01-25-2024 Follow-up visit [id number] Adwoa Porter 1955 M Date Provider Department Center 01/25/2024 BRYCE TRAORE Family History Problem Relation Age of Onset Diabetes Mother Hypertension Mother Coronary artery disease Mother Family Status - Relation Status Age at Mother Level of Service:36529 [place] OFFICE/OUTPATIENT ESTABLISHED MOD MDM 30 MIN Normal [facility] Bola 01-17-2024 L Specimen: [id number] Received: 01/18/24 Status: ALEJA Vences Num: [id number] Spec Type: Surgical Subm Dr: Jorge Arroyo DPM, MS Tissues: A Debridement-Skin/Other Than Skin (LT FOOT ULCER) B DIGIT AMPUTATION (LT 5TH METATARSAL) Procedures: HE/3, Gross/Micro L4, Gross/Micro L3, Decalcification Age/ Patient Sex Location Account Attending Physician Adwoa Porter 68/M LABELL [id number] Jorge Arroyo DPM, MS SPEC NUM: [id number] RECD: 01/18/24 STATUS: ALEJA VENCES NUM: [id number] DAV: 01/17/[address]: Jorge Arroyo DPM, MS ENTERED: 01/18/[address] [facility] [address]: Nadeen,Lab SPEC TYPE: Surgical DEPT: AMARIS REBOLLAR ORDERED: [...] with a rodriguez, trabecular cut surf lupis. Hiv Cts Specialist are submitted following decalcification in one cassette labeled B1. Specimen: [id number] Received: 01/18/24 Status: ALEJA Veradeb Num: [id number] Spec Type: Surgical Subm Dr: Jorge Arroyo,NELLY, MS Tissues: A Debridement-Skin/Other Than Skin (LT FOOT ULCER) B DIGIT AMPUTATION (LT 5TH METATARSAL) Procedures: LORELEI/Judy, Gross/Micro L4, Gross/Micro L3, Decalcification Patient: Adwoa Porter [id number] (Continued) Specimen: [id number] Received: 01/18/24 (Continued) Signed (signature on file) Joy Navarro MD 01/22/24 1743 Specimen: [id number] Received: 01/18/24 Status: ALEJA Veradeb Num: [id number] Spec Type: Surgical Subm Dr: Jorge Arroyo,NELLY, MS Tissues: A Debridement-Skin/Other Than Skin (LT FOOT ULCER) B DIGIT AMPUTATION (LT 5TH METATARSAL) Procedures: HE/3, Gross/Micro L4, Gross/Micro L3, Decalcification Patient: Adwoa Porter [id number] (Continued) Specimen: [id number] Received: 01/18/24 (Continued) CPT Codes 15442o4, 48636 Specimen: [id number] Received: 01/18/240318 Status: ALEJA Vences Num: [id number] Spec Type: Surgical Subm Dr: Jorge Arroyo,NELLY, MS Tissues: A Debridement-Skin/Other Than Skin (LT FOOT ULCER) B DIGIT AMPUTATION (LT 5TH METATARSAL) Procedures: HE/3, Gross/Micro L4, Gross/Micro L3, Decalcification Patient: Adwoa Porter [id number] (Continued) Signed (signature on file) Joy Navarro MD 01/22/24 1743 [facility] URINALYSISon 12-18-2023 Bilirubin Ql (U) Negative Normal NEG [facility] Comment on above: Performed By: #### U A #### [facility] ([id number]) [address] [place] [address] [place] [address] BLOOD/HGB Negative Normal NEG [facility] Comment on above: Performed By: #### U A #### [facility] ([id number]) [address] [place] [address], [place] [address] Color (U) YELLOW Normal YELLOW [facility] Comment on above: Performed By: #### U A #### [facility] ([id number]) [address] [place] [address] [place] [address] Glucose Ql (U) >1000 Abnormal NEG [facility] Comment on above: Performed By: #### U A #### [facility] ([id number]) [address] [place] [address] [place] [address] Ketones Ql (U) Negative Normal NEG [facility] Comment on above: Performed By: #### U A #### [facility] ([id number]) [address] [place] [address] [place] [address] Leukocyte esterase Test strip Ql (U) Negative Normal NEG [facility] Comment on above: Result Comment: HIGH CONCENTRATIONS OF GLUCOSE MAY DECREASE THE REACTIVITY OF THE DIPSTICK LEUKOCYTE TEST PAD. Performed By: #### U A #### [facility] ([id number]) [address] [place] [address], [place] [address] Nitrite Ql (U) Negative Normal NEG [facility] Comment on above: Performed By: #### U A #### [facility] ([id number]) [address] [place] [address] [place] [address] pH (U) 7.0 [pH] Normal 5.0-8.5 [facility] Comment on above: Performed By: #### U A #### [facility] ([id number]) [address] [place] [address] Protein Ql (U) Negative Normal NEG [facility] Comment on above: Performed By: #### U A #### [facility] ([id number]) [address] [place] [address] Specific gravity (U) [Rel density] 1.010 Normal 1.003-1.03 5 [facility] Comment on above: Performed By: #### U A #### [facility] ([id number]) [address] [place] [address] TURBIDITY CLEAR Normal CLEAR [facility] Comment on above: Performed By: #### U A #### [facility] ([id number]) [address] [place] [address] Urinalysis dipstick W Reflex Microscopic panel (U) URINE RECEIVED WITHOUT PRESERVATIVE-DELAYS IN TRANSPORT MAY AFFECT RESULTS.INTERPRET WITH CAUTION AND CLINICAL CORRELATION IS RECOMMENDED. Normal [facility] Comment on above: Performed By: #### U A #### [facility] ([id number]) [address] [place] [address] Urobilinogen Qn (U) 0.2 {Ashley'U}/dL Normal <1.1 [facility] Comment on above: Performed By: #### U A #### [facility] ([id number]) [address] [place] [address] URINE CULTUREon 12-18-2023 Bacteria identified Cx Nom (U) CULTURE RESULTS NO GROWTH AT <1000 CFU/mL Normal [facility] Comment on above: Performed By: #### 6 30-4 #### [facility] ([id number]) [address] [place] [address], [address] [place] [address] Office Visiton 11-26-2023 Follow-up visit [id number] Adwoa Porter 1955 M [facility] Provider Department Center 11/26/2023 BRYCE RTA[facility] Family History Problem Relation Age of Onset Diabetes Mother Hypertension Mother Coronary artery disease Mother Family Status - Relation Status Age at Mother Level of Service:21381 [place] OFFICE/OUTPATIENT ESTABLISHED MOD MDM 30 MIN [facility] Glucose - FINGER STICKon Glucose [Mass/Vol] 529 mg/dL [employer] Other Office Visiton 09-21-2023 Follow-up visit [id number] Adwoa Porter 1955 [facility] Provider Department Center 09/21/2023 [facility]USHIL [facility]O [facility] Family History Problem Relation Age of Onset Diabetes Mother Hypertension Mother Coronary artery disease Mother Family Status - Relation Status Age at Mother Level of Service:90068 [place] OFFICE/OUTPATIENT ESTABLISHED MOD MDM 30-39 MIN Reason for Visit and Comments: Follow-up [026403] Congestive Heart Failure [127] Normal [facility] Glucose - FINGER STICKon Glucose [Mass/Vol] 91 mg/dL [employer] Other Office Visiton 08-23-2023 Follow-up visit [id number] Adwoa Porter 1955 [facility] Provider Department Center 08/23/2023 MASSIMO DYE Hos Family History Problem Relation Age of Onset Diabetes Mother Hypertension Mother Coronary artery disease Mother Family Status - Relation Status Age at Mother Level of Service:83856 [place] OFFICE/OUTPATIENT ESTABLISHED HIGH MDM 40-54 MIN Reason for Visit and Comments: Wheezing [343992] Hospital Follow-up [832] Normal [facility] Office Visiton 08-15-2023 Follow-up visit [id number] Cm 1955 [facility] Provider Department Center 08/15/2023 BRYCE TRAORE [facility] Family History Problem Relation Age of Onset Diabetes Mother Hypertension Mother Coronary artery disease Mother Family Status - Relation Status Age at Mother Level of Service:13663 [place] OFFICE/OUTPATIENT ESTABLISHED MOD MDM 30-39 MIN [facility] 36on 08-13-2023 36 Pt informed [facility] A1C HEMOGLOBINon 06-29-2023 HbA1c (Bld) [Mass fraction] 7.9 % [facility] [employer] Other Glucose - FINGER STICKon Glucose [Mass/Vol] 382 mg/dL [facility] [employer] Other HbA1c (Bld) [Mass fraction]o n 06-29-2023 A1C HEMOGLOBIN [facility] [employer] Other 36on 06-20-2023 36 His potassium on 05/21 was 2.7. He needs to come to the hospital to receive IV potassium and further treatment as needed [facility] Telephoneon 06-20-2023 Telephone [id number] Adwoa Porter 1955 M Date Provider Department Center 06/20/2023 SUSHIL CAO Family History Problem Relation Age of Onset Diabetes Mother Hypertension Mother Coronary artery disease Mother Family Status - Relation Status Age at Mother [facility] 35on 06-19-2023 35 [facility] lab called to re port a potassium level of 2.7 today. Melissa tried to call patient to remind him of his apt tomorrow but he did not answer and had no voicemail. [facility] 36on 06-18-2023 36 [facility] lab called to re port a critical BNP of 13,277. FYI. [facility] Telephoneon 06-18-2023 Telephone [phone] Adwoa Porter 1955 M Date Provider Department Center 06/18/2023 SUSHIL CAO Family History Problem Relation Age of Onset Diabetes Mother Hypertension Mother Coronary artery disease Mother Family Status - Relation Status Age at Mother [facility] Office Visiton 06-05-2023 Follow-up visit [id number] Adwoa Porter 1955 M Date Provider Department Center 06/05/2023 SUSHIL CAO Family History Problem Relation Age of Onset Diabetes Mother Hypertension Mother Coronary artery disease Mother Family Status - Relation Status Age at Mother Level of Service:39209 MA OFFICE/OUTPATIENT ESTABLISHED MOD MDM 30-39 MIN Reason for Visit and Comments: Follow-up [712700] Normal [facility] PTH INTACTon 04-12-2023 PTH, Intact 50 pg/mL Normal 15-65 [facility] Comment on above: Performed By: #### P THINT ####[facility] [address]gipbl[address] [place] [address]Dr. Emelina Navarro HEMOGRAM AND PLATELon 2022 Hematocrit (Bld) [Volume fraction] 42.7 % Normal 42.0-54.0 [facility] Comment on above: Performed By: #### H H ####[facility] Rbodyvengu[address] [place] [address]Dr. Emelina Navarro Hemoglobin (Bld) [Mass/Vol] 14.3 g/dL Normal 14.0-18.0 [facility] Comment on above: Performed By: #### H H ####[facility] Uiuhvwfb[address] [place], [place] [address]Dr. Emelina Navarro MCH (RBC) [Entitic mass] 29.5 pg Normal 25.9-34.0 [facility] Comment on above: Performed By: #### H H ####[facility] Xiuboikgps[address] [place] [address]Dr. Emelina Navarro MCHC (RBC) [Mass/Vol] 33.5 g/dL Normal 29.9-35.2 [facility] Comment on above: Performed By: #### H H ####[facility] Mimgwgfaay8[address] [place] [address]Dr. Emelina Navarro MCV (RBC) [Entitic vol] 88.2 fL Normal 80.0-94.0 [facility] Comment on above: Performed By: #### H H ####[facility] Bbaajrxjuf[address] [place] [address]Dr. Emelina Navarro PLT 278 103/ul Normal 150-450 [facility] Comment on above: Performed By: #### H H ####[facility] Olfwkzvcxe[address] [place] [id number]. Emelina Navarro RBC 4.84 106/ul Normal 4.70-6.10 [facility] Comment on above: Performed By: #### H H ####[facility] Maluiukwqu364[address] [place] [id number]. Emelina Navarro WBC 12.9 103/ul Critically high 4.0-11.0 [facility] Comment on above: Performed By: #### H H ####[facility] Guhdixyjmg85[address] [place] [id number]. Emelina Navarro MAGNESIUMon 04-11-2023 Magnesium [Mass/Vol] 2.2 mg/dL Normal 1.8-2.4 [facility] Comment on above: Performed By: #### U JOLIE, RENAL, MG ####[facility] Mvhlenadje[address] [place] [address]Dr. Awildanitza Ramon RENAL FUNCTION PANELon 04-11 Albumin [Mass/Vol] 3.6 g/dL Normal 3.4-5.0 [facility] Comment on above: Performed By: #### U JOLIE, RENAL, MG ####[facility] Vgulhuwxpf006[address] [place], [place] [address]Dr. Awildanitza Raomn Calcium [Mass/Vol] 9.5 mg/dL Normal 8.5-10.1 [facility] Comment on above: Performed By: #### U JOLIE, RENAL, MG ####[facility] Uhtshxxujd37[address] [place] [address]Dr. Awildanitza Navarro Chloride [Moles/Vol] 95 mmol/L Critically low 98-107 [facility] Comment on above: Performed By: #### U JOLIE, RENAL, MG ####[facility] Mqyaacrjbf299[address] [place] [address]Dr. Emelina Navarro CO2 [Moles/Vol] 36.4 mmol/L Critically high 21.0-32.0 [facility] Comment on above: Performed By: #### U JOLIE, RENAL, MG ####[facility] Wqfklepwqy[address] [place], [place] [address]Dr. Emelina Navarro Creatinine [Mass/Vol] 1.92 mg/dL Critically high 0.70-1.30 [facility] Comment on above: Performed By: #### U JOLIE, RENAL, MG ####[facility] Rivawqggpb[address] [place] [id number]. Emelina Navarro EGFR-AF [place] 42 mL/min/1.73m2 Critically low >=60 [facility] Comment on above: Performed By: #### U JOLIE, RENAL, MG ####[facility] Oygkjnewxk5[address] [place] [phone]. Emelina Navarro EGFR-NON AF [place] 35 mL/min/1.73m2 Critically low >=60 [facility] Comment on above: Performed By: #### U JOLIE, RENAL, MG ####[facility] Jmtpucvfib5738 [place] [address]Dr. Emelina Navarro Glucose [Mass/Vol] 96 mg/dL Normal 74-106 [facility] Comment on above: Performed By: #### U JOLIE, RENAL, MG ####[facility] Cxicpwfzgk7355 [place] [address]Dr. Emelina Navarro Phosphate [Mass/Vol] 4.0 mg/dL Normal 2.6-4.7 [facility] Comment on above: Performed By: #### U JOLIE, RENAL, MG ####[facility] Ojnqbigimd9701 [place] [id number]. Emelina Navarro Potassium [Moles/Vol] 3.1 mmol/L Critically low 3.5-5.1 [facility] Comment on above: Performed By: #### U JOLIE, RENAL, MG ####[facility] Hwhsotdkum90[address] [place] [address]Dr. Emelina Navarro Sodium [Moles/Vol] 137 mmol/L Normal 136-145 [facility] Comment on above: Performed By: #### U JOLIE, RENAL, MG ####[facility] Ljrxymtbmk6241 [place] [address]Dr. Emelina Navarro Urea nitrogen [Mass/Vol] 31.0 mg/dL Critically high 7.0-18.0 [facility] Comment on above: Performed By: #### U JOLIE, RENAL, MG ####[facility] Kmvtocmlzg5350 [place] [address]Dr. Emelina Navarro UA RANDOM W/MICROSCOPICon BACTERIA NONE SEEN Normal NONE SEEN [facility] Comment on above: Performed By: #### U AMIC ####[facility] Xavbpsqgul37[address] [place] [address]Dr. Emelina Navarro Bilirubin Ql (U) Negative Normal NEGATIVE [facility] Comment on above: Performed By: #### U AMIC ####[facility] Ggjvdpmxgb[address] [place], [place] [address]Dr. Emelina Navarro CAST NONE SEEN Normal NONE SEEN [facility] Comment on above: Performed By: #### U AMIC ####[facility] Rbeqbinpqk7016[address] [place], [place] [address]Dr. Emelina Navarro Clarity (U) CLEAR Normal CLEAR [facility] Comment on above: Performed By: #### U AMIC ####[facility] Xbxpuufsjd7674[address] [place], [place] [address]Dr. Emelina Navarro Color (U) LT. YELLOW Normal YELLOW [facility] Comment on above: Performed By: #### U AMIC ####[facility] Qnrixzagnv9[address] [place], [place] [address]Dr. Emelina Navarro Crystals LM Nom (Urine sed) NONE SEEN Normal NONE SEEN [facility] Comment on above: Performed By: #### U AMIC ####[facility] Sruzxddgat1328[address] [place], [place] [address]Dr. Emelina Navarro Epithelial cells LM Ql (Urine sed) FEW Abnormal NONE SEEN /RARE [facility] Comment on above: Performed By: #### U AMIC ####[facility] Obpsaqngwo8842[address] [place], [place] [address]Dr. Emelina Navarro Glucose Ql (U) 500 mg/dl Abnormal NEGATIVE The [facility] Comment on above: Performed By: #### U AMIC ####[facility] Kzgfvqganl2662[address] [place], [place] [address]Dr. Emelina Navarro Hemoglobin Ql (U) Negative Normal NEGATIVE The [facility] Comment on above: Performed By: #### U AMIC ####[facility] Bncakbywof033[address] [place] [address]Dr. Emelina Navarro Ketones Ql (U) Negative Normal NEGATIVE [facility] Comment on above: Performed By: #### U AMIC ####[facility] Ikjssywgpt8442 [place] [address]Dr. Emelina Navarro LEUKOCYTES Negative Normal NEGATIVE [facility] Comment on above: Performed By: #### U AMIC ####[facility] Holvzzouxr0105 [place] [address]Dr. Emelina Navarro MUCOUS NONE SEEN Normal NONE SEEN [facility] Comment on above: Performed By: #### U AMIC ####[facility] Nwestezkyp173[address] [place], [place] [address]Dr. Emelina Navarro Nitrite Ql (U) Negative Normal NEGATIVE [facility] Comment on above: Performed By: #### U AMIC ####[facility] Holghgtash476[address] [place], [place] [address]Dr. Emelina Navarro pH (U) 6.5 [pH] Normal 5-9 [facility] Comment on above: Performed By: #### U AMIC ####[facility] Qhbbywuycc4413[address] [place], [place] [address]Dr. Emelina Navarro RBC NONE SEEN Abnormal 0-2 [facility] Comment on above: Performed By: #### U AMIC ####[facility] Cwuxffsoej77[address] [place], [place] [address]Dr. Emelina Navarro SPEC GRAVITY 1.005 Normal 1.005-<=1. 025 [facility] Comment on above: Performed By: #### U AMIC ####[facility] Cmcgykeott7001 [place] [address]Dr. Emelina Navarro UA PROTEIN Negative Normal NEGATIVE/ TRACE [facility] Comment on above: Performed By: #### U AMIC ####[facility] Tyhbjnbhfu0563 [place] [address]Dr. Emelina Navarro Urobilinogen Qn (U) 0.2 {Ashley'U}/dL Normal 0.2 - 1. 0 [facility] Comment on above: Performed By: #### U AMIC ####[facility] Bwabkxwnmx6216 [place] [address]Dr. Emelina Navarro WBC NONE SEEN Normal NONE SEEN [facility] Comment on above: Performed By: #### U AMIC ####[facility] Hvjcadtrod7[address] [place] [address]Dr. Emelina Navarro URIC ACID SERUMon 04-11-2023 Urate [Mass/Vol] 12.2 mg/dL Critically high 3.5-7.2 [facility] Comment on above: Performed By: #### U JOLIE, RENAL, MG ####[facility] Zbheuqiwhv6086[address] [place], [place] [address]Dr. Emelina Navarro URINE T PROTEIN CREAT RATIOo n 04-11-2023 Protein (U) [Mass/Vol] 9.3 mg/dL Normal <=12.0 [facility] Comment on above: Performed By: #### U RTPCR ####[facility] Hjtwcvyelz712[address] [place], [place] [address]Dr. Emelina Navarro UR PROT CREAT RAT 0.37 Normal [facility] Comment on above: Performed By: #### U RTPCR ####[facility] Viqevfgiif509[address] [place], [place] [address]Dr. Emelina Navarro URINE CREAT 25.00 mg/dL Normal 20.00-300. 00 [facility] Comment on above: Performed By: #### U RTPCR ####[facility] Bexdbppril6583[address] [place], [place] [address]Dr. Emelina Navarro VITAMIN D 25 OHon 04-11-2023 VIT D 25-OH 51.8 ng/mL Normal [facility] Comment on above: Performed By: #### V ITAD ####[facility] Wivbtgpbze6978[address] [place], [place] [address]Dr. Emelina Navarro VIT D RANGES SEE BELOW Normal [facility] Comment on above: Result Comment: <20 ng/mL Vit D deficient 20 - <30 ng/mL Vit D insufficient 30 - 100 ng/mL Vit D sufficient >100 ng/mL Potential Toxicity Performed By: #### V ITAD ####[facility] Vbdiibjsot8702 [place] [address]Dr. Emelina Navarro BNPon 03-28-2023 Natriuretic peptide B (Bld) [Mass/Vol] 7479.0 pg/mL Critically high <=900.0 [facility] Comment on above: Performed By: #### B HORTICULTURAL TECHNICAL OFFICER, CMP ####[facility] Uxweldppds113[address] [place], [place] [address]Dr. Emelina Navarro CBC AUTO DIFFon 03-28-2023 BASO # 0.1 103/ul Normal 0.0-0.1 [facility] Comment on above: Performed By: #### C BC ####[facility] Slxciwgjld2600[address] [place], [place] [address]Dr. Emelina Navarro Basophils/100 WBC (Bld) 0.5 % Normal 0.2-2.0 [facility] Comment on above: Performed By: #### C BC ####[facility] Noqlcqrbuv6855[address] [place], [place] [address]Dr. Emelina Navarro EO # 0.4 103/ul Normal 0.0-0.7 [facility] Comment on above: Performed By: #### C BC ####[facility] Lgkyvnnope7065[address] [place], [place] [address]Dr. Emelina Navarro Eosinophils/100 WBC (Bld) 3.7 % Normal 0.9-7.0 [facility] Comment on above: Performed By: #### C BC ####[facility] Qleiruhrzx1782[address] [place], [place] [address]Dr. Emelina Navarro Erythrocyte distribution width (RBC) [Ratio] 18.2 % Critically high 11.0-15.0 [facility] Comment on above: Performed By: #### C BC ####[facility] Ofnbbhldfn7010[address] [place], [place] [address]Dr. Emelina Navarro Hematocrit (Bld) [Volume fraction] 39.0 % Critically low 42.0-54.0 [facility] Comment on above: Performed By: #### C BC ####[facility] Pyfqbpsfbq4395[address] [place], [place] [address]Dr. Emelina Navarro Hemoglobin (Bld) [Mass/Vol] 12.8 g/dL Critically low 14.0-18.0 [facility] Comment on above: Performed By: #### C BC ####[facility] Roesxxtccc1722 [place] [address]DrWesley Navarro IG # 0.05 10e3/ul Critically high 0.00-0.03 [facility] Comment on above: Performed By: #### C BC ####[facility] Ikbjrkhkzx0657 [place] [address]DrWesley Navarro IG % 0.5 % Normal 0.0-0.5 [facility] Comment on above: Performed By: #### C BC ####[facility] Fohqlgogrb5470[address] [place], [place] [address]DrWesley Navarro LYMPH # 1.4 103/ul Normal 1.2-3.8 [facility] Comment on above: Performed By: #### C BC ####[facility] Vedumuhnko2613[address] [place], [place] [address]DrWesley Navarro Lymphocytes/100 WBC (Bld) 13.1 % Critically low 20.5-60.0 [facility] Comment on above: Performed By: #### C BC ####[facility] Ttwgktdlpo993199 [address] [place], [place] [address]DrWesley Navarro MANUAL DIFF REQ NO Normal [facility] Comment on above: Performed By: #### C BC ####[facility] Xzwmoyjlmh3094 [place] [address]DrWesley Navarro MCH (RBC) [Entitic mass] 29.8 pg Normal 25.9-34.0 [facility] Comment on above: Performed By: #### C BC ####[facility] Shozdjnify1886[address] [place], [place] [address]DrWesley Navarro MCHC (RBC) [Mass/Vol] 32.8 g/dL Normal 29.9-35.2 [facility] Comment on above: Performed By: #### C BC ####[facility] Hcoorrdmdo216[address] [place], [place] [address]DrWesley Navarro MCV (RBC) [Entitic vol] 90.9 fL Normal 80.0-94.0 [facility] Comment on above: Performed By: #### C BC ####[facility] Yvnoigtuix2016 [place] [address]DrWesley Kaisernitza Ramon MONO # 0.8 103/ul Normal 0.3-0.8 [facility] Comment on above: Performed By: #### C BC ####[facility] Akrnqhtixe3463 [place] [address]DrWesley Navarro Monocytes/100 WBC (Bld) 7.5 % Normal 1.7-12.0 [facility] Comment on above: Performed By: #### C BC ####[facility] Kgpoyetaci6937[address] [place], [place] [address]DrWesley Kaisernitza Ramon NEUT # 8.1 103/ul Critically high 1.4-6.5 The [facility] Comment on above: Performed By: #### C BC ####[facility] Fkzhhhnnpj2300[address] [place], [place] [address]DrWesley Navarro Neutrophils/100 WBC (Bld) 74.7 % Normal 43.0-75.0 [facility] Comment on above: Performed By: #### C BC ####[facility] Crcpdmlbhv4601[address] [place], [place] [address]DrWesley Awildanitza Navarro Platelet mean volume (Bld) [Entitic vol] 10.0 fL Normal 9.5-13.5 [facility] Comment on above: Performed By: #### C BC ####[facility] Urxsoypclz3948[address] [place], [place] [address]Dr. Emelina Navarro PLT 242 103/ul Normal 150-450 [facility] Comment on above: Performed By: #### C BC ####[facility] Zolazcirki[address] [place], [place] [address]DrWesley Navarro RBC 4.29 106/ul Critically low 4.70-6.10 The [facility] Comment on above: Performed By: #### C BC ####[facility] Usoeweavll039[address] [place], [place] [address]DrWesley Navarro WBC 10.8 103/ul Normal 4.0-11.0 [facility] Comment on above: Performed By: #### C BC ####[facility] Jgxzlpcbnh7784 [place] [address]Dr. Emelina Navarro PROF 14(COMP METB)on 023 Albumin [Mass/Vol] 2.7 g/dL Critically low 3.4-5.0 [facility] Comment on above: Performed By: #### B HORTICULTURAL TECHNICAL OFFICER, CMP ####[facility] Cvrezvzeyo495[address] [place], [place] [address]Dr. Emelina Navarro Albumin/Globulin [Mass ratio] 0.6 {ratio} Normal [facility] Comment on above: Performed By: #### B HORTICULTURAL TECHNICAL OFFICER, CMP ####[facility] Vczrrioboz552799 [address] [place], [place] [address]Dr. Emelina Navarro ALP [Catalytic activity/Vol] 105 U/L Normal 46-116 [facility] Comment on above: Performed By: #### B HORTICULTURAL TECHNICAL OFFICER, CMP ####[facility] Zwbpnfgmei367699 [address] [place], [place] [address]Dr. Emelina Navarro ALT [Catalytic activity/Vol] 21 U/L Normal 16-63 [facility] Comment on above: Performed By: #### B HORTICULTURAL TECHNICAL OFFICER, CMP ####[facility] Dnzqdurbpn6093[address] [place], [place] [address]Dr. Emelina Navarro Anion gap [Moles/Vol] 11.6 mmol/L Normal [facility] Comment on above: Performed By: #### B HORTICULTURAL TECHNICAL OFFICER, CMP ####[facility] Miatthpbnl4276[address] [place], [place] [address]Dr. Emelina Navarro AST [Catalytic activity/Vol] 25 U/L Normal 15-37 [facility] Comment on above: Performed By: #### B HORTICULTURAL TECHNICAL OFFICER, CMP ####[facility] Sckvzlvnzj6903[address] [place], [place] [address]Dr. Emelina Navarro Bilirubin [Mass/Vol] 0.8 mg/dL Normal 0.2-1.0 [facility] Comment on above: Performed By: #### B HORTICULTURAL TECHNICAL OFFICER, CMP ####[facility] Xribmqbuqs088[address] [place], [place] [address]Dr. Emelina Navarro Calcium [Mass/Vol] 8.1 mg/dL Critically low 8.5-10.1 [facility] Comment on above: Performed By: #### B HORTICULTURAL TECHNICAL OFFICER, CMP ####[facility] Ozfqvrdliq23[address] [place], [place] [address]Dr. Emelina Navarro Chloride [Moles/Vol] 100 mmol/L Normal 98-107 [facility] Comment on above: Performed By: #### B HORTICULTURAL TECHNICAL OFFICER, CMP ####[facility] Jkhtqadakz825[address] [place], [place] [address]Dr. Emelina Navarro CO2 [Moles/Vol] 29.2 mmol/L Normal 21.0-32.0 [facility] Comment on above: Performed By: #### B HORTICULTURAL TECHNICAL OFFICER, CMP ####[facility] Fphmxynjoi350399 [address] [place], [place] [address]Dr. Emelina Navarro Creatinine [Mass/Vol] 1.66 mg/dL Critically high 0.70-1.30 [facility] Comment on above: Performed By: #### B HORTICULTURAL TECHNICAL OFFICER, CMP ####[facility] Bnpcxakwag3180[address] [place], [place] [address]Dr. Emelina Navarro EGFR-AF [place] 50 mL/min/1.73m2 Critically low >=60 [facility] Comment on above: Performed By: #### B HORTICULTURAL TECHNICAL OFFICER, CMP ####[facility] Vrecasxfqx4877[address] [place], [place] [address]Dr. Emelina Navarro EGFR-NON AF [place]IZ[place] 41 mL/min/1.73m2 Critically low >=60 [facility] Comment on above: Performed By: #### B HORTICULTURAL TECHNICAL OFFICER, CMP ####[facility] Bkyqialcjv148499 [address] [place], [place] [address]Dr. Emelina Navarro Globulin (S) [Mass/Vol] 4.2 g/dL Normal [facility] Comment on above: Performed By: #### B HORTICULTURAL TECHNICAL OFFICER, CMP ####[facility] Ckszejfdke956[address] [place], [place] [address]Dr. Emelina Navarro Glucose [Mass/Vol] 126 mg/dL Critically high 74-106 [facility] Comment on above: Performed By: #### B HORTICULTURAL TECHNICAL OFFICER, CMP ####[facility] Rdvocgbdsu8226 [place] [address]Dr. Emelina Navarro Potassium [Moles/Vol] 3.8 mmol/L Normal 3.5-5.1 [facility] Comment on above: Performed By: #### B HORTICULTURAL TECHNICAL OFFICER, CMP ####[facility] Muzdmhhixc2333[address] [place], [place] [address]Dr. Emelina Navarro Protein [Mass/Vol] 6.9 g/dL Normal 6.4-8.2 [facility] Comment on above: Performed By: #### B HORTICULTURAL TECHNICAL OFFICER, CMP ####[facility] Iiqnkthjdn327299 [address] [place], [place] [address]Dr. Emelina Navarro Sodium [Moles/Vol] 137 mmol/L Normal 136-145 [facility] Comment on above: Performed By: #### B HORTICULTURAL TECHNICAL OFFICER, CMP ####[facility] Cpbwocuzee818799 [address] [place], [place] [address]Dr. Emelina Navarro Urea nitrogen [Mass/Vol] 32.0 mg/dL Critically high 7.0-18.0 [facility] Comment on above: Performed By: #### B HORTICULTURAL TECHNICAL OFFICER, CMP ####[facility] Qklccudiaf0638[address] [place], [place] [address]Dr. Emelina Navarro Urea nitrogen/Creatinine [Mass ratio] 19.3 mg/mg Normal [facility] Comment on above: Performed By: #### B HORTICULTURAL TECHNICAL OFFICER, CMP ####[facility] Joxwtjisvi4324[address] [place], [place] [address]Dr. Emelina Navarro PROTIMEon 03-28-2023 INR Coag (PPP) [Relative time] 2.59 {INR} Normal [facility] Comment on above: Performed By: #### P T ####[facility] Csdwbwievu2146[address] [place], [place] [address]Dr. Emelina Navarro INR GUIDELINES SEE BELOW Normal [facility] Comment on above: Result Comment: WENDY RED INR: 2.0 - 3.0 CONDITIONS NOT LISTED BELOW 2.5 - 3.5 FOR PROSTHETIC HEART VALVE REPLACEMENT 2.5 - 3.5 RECURRENT THROMBOSIS Performed By: #### P T ####[facility] Jxczhjtoiv5830[address] [place], [place] [address]Dr. Emelina Navarro PT Coag (PPP) [Time] 26.0 s Critically high 9.0-11.6 [facility] Comment on above: Performed By: #### P T ####[facility] Dpoeolhuvz197[address] [place], [place] [address]Dr. Emelina Navarro SED RATE WESTERGRENon 2022 SED RATE 62 mm/hr Critically high <=20 The [facility] Comment on above: Performed By: #### S EDR ####[facility] Otwhtbkvyx4096[address] [place], [place] [address]Dr. Emelina Navarro BNPon 03-27-2023 Natriuretic peptide B (Bld) [Mass/Vol] 01801.0 pg/mL Critically high <=900.0 [facility] Comment on above: Performed By: #### B HORTICULTURAL TECHNICAL OFFICER ####[facility] Ywmnddfkki7456[address] [place], [place] [address]Dr. Emelina Navarro CARDIAC IMTIAZ 3-6on 3 CK [Catalytic activity/Vol] 59 U/L Normal 39-308 [facility] Comment on above: Performed By: #### C MREP ####[facility] Oqqcepgmxy3157[address] [place], [place] [address]Dr. Emelina Navarro CK.MB [Mass/Vol] 1.98 ng/mL Normal <=3.60 [facility] Comment on above: Performed By: #### C MREP ####[facility] Yhjxbidgqe37[address] [place], [place] [address]Dr. Emelina Navarro HSTROP 52.5 pg/mL Normal 4.0-76.1 [facility] Comment on above: Result Comment: CUT- OFF POINTS HAVE BEEN ESTABLISHED BASED ON THE FOURTH UNIVERSAL DEFINITIONS OF MYOCARDIALINFARCTION. THE UPPER REFERENCE LIMIT (URL) OF TROPONIN, DEFINED THE 99TH PERCENTILE OFcTnI DISTRIBUTION IN A REFERENCE POPULATION, HAS BEEN CONFIRMED THE DECISION THRESHOLDFOR IA DIAGNOSIS. Performed By: #### C MREP ####[facility] Mzbbuiucsm[address] [place], [place] [address]Dr. Emelina Ramon CK [Catalytic activity/Vol] 41 U/L Normal 39-308 [facility] Comment on above: Performed By: #### C MREP ####[facility] [address]weqy[address] [place] [id number]. Emelina Navarro CK.MB [Mass/Vol] 1.26 ng/mL Normal <=3.60 [facility] Comment on above: Performed By: #### C MREP ####[facility] Yeavbnyayx4635 [place] [phone]. Emelina Navarro HSTROP 49.5 pg/mL Normal 4.0-76.1 [facility] Comment on above: Result Comment: CUT- OFF POINTS HAVE BEEN ESTABLISHED BASED ON THE FOURTH UNIVERSAL DEFINITIONS OF MYOCARDIALINFARCTION. THE UPPER REFERENCE LIMIT (URL) OF TROPONIN, DEFINED THE 99TH PERCENTILE OFcTnI DISTRIBUTION IN A REFERENCE POPULATION, HAS BEEN CONFIRMED THE DECISION THRESHOLDFOR [place] DIAGNOSIS. Performed By: #### C MREP ####[facility] Wugdmzoykc[address] [place], [place] [address]Dr. Emelina Ramon CBC AUTO DIFFon 03-27-2023 BASO # 0.0 103/ul Normal 0.0-0.1 [facility] Comment on above: Performed By: #### C BC ####[facility] Jckjowmjin[address] [place], [place] [address]Dr. Emelina Ramon Basophils/100 WBC (Bld) 0.3 % Normal 0.2-2.0 [facility] Comment on above: Performed By: #### C BC ####[facility] Uushkrxypx56[address] [place], [place] [address]Dr. Emelina Navarro EO # 0.4 103/ul Normal 0.0-0.7 [facility] Comment on above: Performed By: #### C BC ####[facility] Oerbwpjbbl[address] [place], [place] [id number]. Emelina Ramon Eosinophils/100 WBC (Bld) 3.3 % Normal 0.9-7.0 [facility] Comment on above: Performed By: #### C BC ####[facility] Sokmzuceev[address] [place], [place] [address]Dr. Awildanitza Navarro Erythrocyte distribution width (RBC) [Ratio] 17.9 % Critically high 11.0-15.0 [facility] Comment on above: Performed By: #### C BC ####[facility] Siooogjrfj[address] [place] [address]Dr. Emelina Navarro Hematocrit (Bld) [Volume fraction] 42.3 % Normal 42.0-54.0 [facility] Comment on above: Performed By: #### C BC ####[facility] Xchymklvoh7702 [place] [address]Dr. Emelina Navarro Hemoglobin (Bld) [Mass/Vol] 13.8 g/dL Critically low 14.0-18.0 [facility] Comment on above: Performed By: #### C BC ####[facility] Zohfrlcyau[address] [place] [address]Dr. Emelina Navarro IG # 0.07 10e3/ul Critically high 0.00-0.03 [facility] Comment on above: Performed By: #### C BC ####[facility] Qexdnihnox8950 [place] [address]Dr. Emelina Navarro IG % 0.5 % Normal 0.0-0.5 [facility] Comment on above: Performed By: #### C BC ####[facility] Hadbluicts[address] [place], [place] [address]DrWesley Navarro LYMPH # 2.3 103/ul Normal 1.2-3.8 [facility] Comment on above: Performed By: #### C BC ####[facility] Yvrouqafcp25[address] [place], [place] [address]DrWesley Navarro Lymphocytes/100 WBC (Bld) 17.5 % Critically low 20.5-60.0 [facility] Comment on above: Performed By: #### C BC ####[facility] Amfopeqbcv1463[address] [place], [place] [address]DrWesley Navarro MANUAL DIFF REQ NO Normal [facility] Comment on above: Performed By: #### C BC ####[facility] Jqnpihuplw8[address] [place] [address]Dr. Emelina Navarro MCH (RBC) [Entitic mass] 29.3 pg Normal 25.9-34.0 [facility] Comment on above: Performed By: #### C BC ####[facility] Yfewmriilu6151 [place] [phone]. Emelina Ramon MCHC (RBC) [Mass/Vol] 32.6 g/dL Normal 29.9-35.2 [facility] Comment on above: Performed By: #### C BC ####[facility] Qojqqqyqxm3407 [place] [phone] Navarro MCV (RBC) [Entitic vol] 89.8 fL Normal 80.0-94.0 [facility] Comment on above: Performed By: #### C BC ####[facility] Oimrnqtxcl6415[address] [place], [place] [address]DrWesley Navarro MONO # 1.0 103/ul Critically high 0.3-0.8 The [facility] Comment on above: Performed By: #### C BC ####[facility] Mbzrzvbljg01[address] [place], [place] [address]Dr. Emelina Navarro Monocytes/100 WBC (Bld) 7.8 % Normal 1.7-12.0 [facility] Comment on above: Performed By: #### C BC ####[facility] Qmpklpdyjj59[address] [place], [place] [address]Dr. Emelina Navarro NEUT # 9.3 103/ul Critically high 1.4-6.5 [facility] Comment on above: Performed By: #### C BC ####[facility] Itxxkrfmtj9146[address] [place], [place] [address]Dr. Emelina Navarro Neutrophils/100 WBC (Bld) 70.6 % Normal 43.0-75.0 [facility] Comment on above: Performed By: #### C BC ####[facility] Nmcragtxbp[address] [place], [place] [id number] Navarro Platelet mean volume (Bld) [Entitic vol] 9.6 fL Normal 9.5-13.5 [facility] Comment on above: Performed By: #### C BC ####[facility] Vghatuvezp90[address] [place], [place] [address]DrWesley Navarro PLT 248 103/ul Normal 150-450 [facility] Comment on above: Performed By: #### C BC ####[facility] Ttrofoeilp6774 [place] [phone]. Emelina Navarro RBC 4.71 106/ul Normal 4.70-6.10 [facility] Comment on above: Performed By: #### C BC ####[facility] Ipcdssthri7249 [place] [phone]. Emelina Navarro WBC 13.2 103/ul Critically high 4.0-11.0 [facility] Comment on above: Performed By: #### C BC ####[facility] Efjdpeekfy2863 [place] [phone]. Emelina Navarro DIGOXINon 03-27-2023 DIG 1.1 ng/mL Normal 0.9-2.0 [facility] Comment on above: Performed By: #### D IG ####[facility] Nkvctoqfob4581 [place] [address]Dr. Emelina Navarro LACTATE/LACTIC ACIDon 2022 Lactate [Moles/Vol] 0.8 mmol/L Normal 0.4-2.0 [facility] Comment on above: Performed By: #### L ACT ####[facility] Cauiopkmjt6108 [place] [phone]. Emelina Navarro LIPID PROFILEon 03-27-2023 CHOL-HDL RATIO NORM SEE BELOW Normal [facility] Comment on above: Result Comment: 3.3 - 4.4 LOW RISK 4.4 - 7.1 AVERAGE RISK 7.1 - 11.0 MODERATE RISK >11.0 HIGH RISK Performed By: #### L IPID, TSH ####[facility] Agmdlpdbyq0341 [place] [phone]. Emelina Navarro Cholesterol [Mass/Vol] 86 mg/dL Normal <=200 [facility] Comment on above: Performed By: #### L IPID, TSH ####[facility] Sbdehtjjzp4986 [place] [phone]. Emelina Navarro Cholesterol in HDL [Mass/Vol] 29 mg/dL Critically low 40-60 [facility] Comment on above: Performed By: #### L IPID, TSH ####[facility] Ycfnbvbmis3627 [place] [phone]. Emelina Navarro Cholesterol in LDL [Mass/Vol] 37.8 mg/dL Normal [facility] Comment on above: Performed By: #### L IPID, TSH ####[facility] Wfiffkyact2202 [place] [phone]. Emelina Navarro Cholesterol.total/Cho lesterol in HDL [Mass ratio] 3.0 {ratio} Normal [facility] Comment on above: Performed By: #### L IPID, TSH ####[facility] Zxqgbpsewx5507 [place] [phone]. Emelina Navarro HDL NORMAL > or = 60 mg/dl - LO W CARDIOVASCULAR RISK <40 mg/dl - HIGH CARDIOVASCULAR RISK Normal [facility] Comment on above: Performed By: #### L IPID, TSH ####[facility] Ugnfimxjco54[address] [place] [address]Dr. Emelina Navarro LDL CALC NORMAL SEE BELOW Normal [facility] Comment on above: Result Comment: <100 mg/dl OPTIMAL 100 - 129 mg/dl NEAR OR ABOVE OPTIMAL 130 - 159 mg/dl BORDERLINE HIGH 160 - 189 mg/dl HIGH >190 mg/dl VERY HIGH Performed By: #### L IPID, TSH ####[facility] Fsbhbzydgv3000 [place] [address]Dr. Emelina Navarro Triglyceride [Mass/Vol] 96 mg/dL Normal <=150 [facility] Comment on above: Performed By: #### L IPID, TSH ####[facility] Nlmhsmrlul6385 [place] [phone]. Emelina Navarro VLDL CALC 19.2 mg/dL Normal [facility] Comment on above: Performed By: #### L IPID, TSH ####[facility] Ducemrzlaa2[address] [place] [address]Dr. Emelina Navarro POINT OF CARE GLUCOSEon 05-0 Glucose [Mass/Vol] 175 mg/dL Critically high 74-106 [facility] Comment on above: Performed By: #### P OCGLUC ####[facility] Csrcmsekue8273 [place] [address]Dr. Awildanitza Ramon Glucose [Mass/Vol] 196 mg/dL Critically high 74-106 [facility] Comment on above: Performed By: #### P OCGLUC ####[facility] Qvbupqxcnj01[address] [place], [place] [address]Dr. Emelina Navarro PROF 14(COMP METB)on 023 Albumin [Mass/Vol] 2.9 g/dL Critically low 3.4-5.0 [facility] Comment on above: Performed By: #### C MP ####[facility] Vgpvpfuaah0065 [place] [address]Dr. Emelina Navarro Albumin/Globulin [Mass ratio] 0.6 {ratio} Normal [facility] Comment on above: Performed By: #### C MP ####[facility] Cfulsnignn6[address] [place], [place] [address]Dr. Emelina Navarro ALP [Catalytic activity/Vol] 112 U/L Normal 46-116 [facility] Comment on above: Performed By: #### C MP ####[facility] Qrhclavrjw4530[address] [place], [place] [address]Dr. Emelina Navarro ALT [Catalytic activity/Vol] 23 U/L Normal 16-63 [facility] Comment on above: Performed By: #### C MP ####[facility] Pviwiffelw9614[address] [place], [place] [address]Dr. Emelina Navarro Anion gap [Moles/Vol] 9.5 mmol/L Normal [facility] Comment on above: Performed By: #### C MP ####[facility] Vwcevnnlqy83[address] [place], [place] [address]Dr. Emelina Navarro AST [Catalytic activity/Vol] 30 U/L Normal 15-37 [facility] Comment on above: Performed By: #### C MP ####[facility] Ftjyxciedb645[address] [place], [place] [address]Dr. Emelina Navarro Bilirubin [Mass/Vol] 0.8 mg/dL Normal 0.2-1.0 [facility] Comment on above: Performed By: #### C MP ####[facility] Zedlhkqmdt5999 [place] [phone]. Emelina Navarro Calcium [Mass/Vol] 8.2 mg/dL Critically low 8.5-10.1 [facility] Comment on above: Performed By: #### C MP ####[facility] Hfmrhijiis2853 [place] [phone]. Emelina Navarro Chloride [Moles/Vol] 100 mmol/L Normal 98-107 [facility] Comment on above: Performed By: #### C MP ####[facility] Tlgdlyqobt4405 [place] [phone]. Emelina Navarro CO2 [Moles/Vol] 32.9 mmol/L Critically high 21.0-32.0 [facility] Comment on above: Performed By: #### C MP ####[facility] Oxjhnbcsyx341[address] [place], [place] [address]Dr. Emelina Anvarro Creatinine [Mass/Vol] 1.60 mg/dL Critically high 0.70-1.30 [facility] Comment on above: Performed By: #### C MP ####[facility] Birbdnwafe[address] [place], [place] [address]Dr. Emelina Navarro EGFR-AF [place] 52 mL/min/1.73m2 Critically low >=60 [facility] Comment on above: Performed By: #### C MP ####[facility] Exuwwatuvm[address] [place], [place] [id number]. Emelina Navarro EGFR-NON AF [place] 43 mL/min/1.73m2 Critically low >=60 [facility] Comment on above: Performed By: #### C MP ####[facility] Qsajbnrbdd0313 [place] [phone]. Emelina Navarro Globulin (S) [Mass/Vol] 4.6 g/dL Normal [facility] Comment on above: Performed By: #### C MP ####[facility] Wvqtesxshp9982 [place] [phone]. Emelina Ramon Glucose [Mass/Vol] 76 mg/dL Normal 74-106 [facility] Comment on above: Performed By: #### C MP ####[facility] Eyloiyfqeq0680 [place] [address]Dr. Emelina Navarro Potassium [Moles/Vol] 3.4 mmol/L Critically low 3.5-5.1 [facility] Comment on above: Performed By: #### C MP ####[facility] Tuqbsuliwu3036 [place] [address]Dr. Emelina Navarro Protein [Mass/Vol] 7.5 g/dL Normal 6.4-8.2 The [facility] Comment on above: Performed By: #### C MP ####[facility] Xhfofhgusj6947[address] [place], [place] [address]Dr. Emelina Navarro Sodium [Moles/Vol] 139 mmol/L Normal 136-145 [facility] Comment on above: Performed By: #### C MP ####[facility] Azhmlqotmr7153[address] [place], [place] [address]Dr. Emelina Navarro Urea nitrogen [Mass/Vol] 30.0 mg/dL Critically high 7.0-18.0 [facility] Comment on above: Performed By: #### C MP ####[facility] Ezmmcpfpkk0830[address] [place], [place] [address]Dr. Emelina Navarro Urea nitrogen/Creatinine [Mass ratio] 18.8 mg/mg Normal [facility] Comment on above: Performed By: #### C MP ####[facility] Pvnechnnot9[address] [place], [place] [address]Dr. Emelina Navarro PROTIMEon 03-27-2023 INR Coag (PPP) [Relative time] 2.58 {INR} Normal [facility] Comment on above: Performed By: #### P T ####[facility] Imomtlzbrb1008[address] [place], [place] [address]Dr. Emelina Navarro INR GUIDELINES SEE BELOW Normal [facility] Comment on above: Result Comment: WENDY RED INR: 2.0 - 3.0 CONDITIONS NOT LISTED BELOW 2.5 - 3.5 FOR PROSTHETIC HEART VALVE REPLACEMENT 2.5 - 3.5 RECURRENT THROMBOSIS Performed By: #### P T ####[facility] Doinhlfkbz1242[address] [place], [place] [address]Dr. Emelina Navarro PT Coag (PPP) [Time] 25.9 s Critically high 9.0-11.6 [facility] Comment on above: Performed By: #### P T ####[facility] Ylvcfpoebd901[address] [place], [place] [address]Dr. Emelina Navarro T4on 03-27-2023 T4 [Mass/Vol] 6.50 ug/dL Normal 4.50-12.10 The [facility] Comment on above: Performed By: #### T 4 ####[facility] Ippvigqfag017[address] [place], [place] [address]Dr. Emelina Navarro TSHon 03-27-2023 TSH 5.619 uIU/mL Critically high 0.358-3.74 0 [facility] Comment on above: Performed By: #### L IPID, TSH ####[facility] Tzchcqpwgo74[address] [place], [place] [address]Dr. Emelina Navarro US FERNY DOP LEG RTon 03-27-20 23 US FERNY DOP LEG RT Normal [facility] XR CHEST 1 Von 03-27-2023 XR CHEST 1 V Normal [facility] XR FOOT RT MIN 3 VIEWSon XR FOOT RT MIN 3 VIEWS Normal [facility] BNPon 03-26-2023 Natriuretic peptide B (Bld) [Mass/Vol] 77361.0 pg/mL Critically high <=900.0 [facility] Comment on above: Performed By: #### B MP, CRP, CMADM, BNP ####[facility] Qfyscdjgzu3155[address] [place], [place] [address]Dr. Emelina Navarro CARDIAC IMTIAZ ADMITon 023 CK [Catalytic activity/Vol] 48 U/L Normal 39-308 [facility] Comment on above: Performed By: #### B MP, CRP, CMADM, BNP ####[facility] Bkvkbwxjla9927[address] [place], [place] [address]Dr. Emelina Navarro CK.MB [Mass/Vol] 1.48 ng/mL Normal <=3.60 [facility] Comment on above: Performed By: #### B MP, CRP, CMADM, BNP ####[facility] Gakkxplblg7606[address] [place], [place] [address]Dr. Emelina Navarro HSTROP 49.9 pg/mL Normal 4.0-76.1 [facility] Comment on above: Result Comment: CUT- OFF POINTS HAVE BEEN ESTABLISHED BASED ON THE FOURTH UNIVERSAL DEFINITIONS OF MYOCARDIALINFARCTION. THE UPPER REFERENCE LIMIT (URL) OF TROPONIN, DEFINED THE 99TH PERCENTILE OFcTnI DISTRIBUTION IN A REFERENCE POPULATION, HAS BEEN CONFIRMED THE DECISION THRESHOLDFOR [place] DIAGNOSIS. Performed By: #### B MP, CRP, CMADM, BNP ####[facility] Wovdeebjio7741 [place] [address]Dr. Emelina Navarro URBANO 117 ng/mL Critically high 16-96 The [facility] Comment on above: Performed By: #### B MP, CRP, CMADM, BNP ####[facility] Symbeqtpek8170 [place] [address]Dr. Emelina Navarro CBC AUTO DIFFon 03-26-2023 BASO # 0.1 103/ul Normal 0.0-0.1 [facility] Comment on above: Performed By: #### C BC ####[facility] Gryzynvrdk65[address] [place], [place] [address]Dr. Emelina Navarro Basophils/100 WBC (Bld) 0.4 % Normal 0.2-2.0 [facility] Comment on above: Performed By: #### C BC ####[facility] Lyipxatqak722[address] [place], [place] [address]Dr. Emelina Navarro EO # 0.5 103/ul Normal 0.0-0.7 [facility] Comment on above: Performed By: #### C BC ####[facility] Zjbmvehsxl5610[address] [place], [place] [address]Dr. Emelina Navarro Eosinophils/100 WBC (Bld) 3.5 % Normal 0.9-7.0 [facility] Comment on above: Performed By: #### C BC ####[facility] Ndswvzflks9628 [place] [address]Dr. Emelina Navarro Erythrocyte distribution width (RBC) [Ratio] 17.7 % Critically high 11.0-15.0 [facility] Comment on above: Performed By: #### C BC ####[facility] Wawxzufgdw5708 [place] [address]Dr. Emelina Navarro Hematocrit (Bld) [Volume fraction] 42.6 % Normal 42.0-54.0 [facility] Comment on above: Performed By: #### C BC ####[facility] Niakhhslca2435 [place] [address]Dr. Emelina Navarro Hemoglobin (Bld) [Mass/Vol] 14.2 g/dL Normal 14.0-18.0 [facility] Comment on above: Performed By: #### C BC ####[facility] Ptzcujrlzd1840 [place] [address]Dr. Emelina Navarro IG # 0.09 10e3/ul Critically high 0.00-0.03 [facility] Comment on above: Performed By: #### C BC ####[facility] Pwqmhhqosm50[address] [place], [place] [address]Dr. Emelina Navarro IG % 0.7 % Critically high 0.0-0.5 [facility] Comment on above: Performed By: #### C BC ####[facility] Petuskrovu08[address] [place], [place] [address]Dr. Emelina Navarro LYMPH # 2.3 103/ul Normal 1.2-3.8 [facility] Comment on above: Performed By: #### C BC ####[facility] Bblsjkvjmx69[address] [place], [place] [address]Dr. Emelina Navarro Lymphocytes/100 WBC (Bld) 17.3 % Critically low 20.5-60.0 [facility] Comment on above: Performed By: #### C BC ####[facility] Zcfjafmhqb6978 [place] [address]Dr. Emelina Navarro MANUAL DIFF REQ NO Normal [facility] Comment on above: Performed By: #### C BC ####[facility] Jxkrryowzf[address] [place], [place] [address]Dr. Emelina Navarro MCH (RBC) [Entitic mass] 29.6 pg Normal 25.9-34.0 [facility] Comment on above: Performed By: #### C BC ####[facility] Ccsfjxyxiz7168 [place] [phone]. Emelina Navarro MCHC (RBC) [Mass/Vol] 33.3 g/dL Normal 29.9-35.2 [facility] Comment on above: Performed By: #### C BC ####[facility] Atspcgoxnx1066 [place] [phone]. Emelina Navarro MCV (RBC) [Entitic vol] 88.9 fL Normal 80.0-94.0 [facility] Comment on above: Performed By: #### C BC ####[facility] Aciyweainc0915 [place] [phone]. Emelina Navarro MONO # 1.3 103/ul Critically high 0.3-0.8 [facility] Comment on above: Performed By: #### C BC ####[facility] Awrnheajdx7351 [place] [phone]. Awildanitza Navarro Monocytes/100 WBC (Bld) 9.7 % Normal 1.7-12.0 [facility] Comment on above: Performed By: #### C BC ####[facility] Batphqonfa3609 [place] [phone]. Emelina Navarro NEUT # 9.2 103/ul Critically high 1.4-6.5 [facility] Comment on above: Performed By: #### C BC ####[facility] Wkzdfdupif4444 [place] [phone]. Awildanitza Navarro Neutrophils/100 WBC (Bld) 68.4 % Normal 43.0-75.0 [facility] Comment on above: Performed By: #### C BC ####[facility] Redyjcrxfq1751 [place] [phone]. Emelina Navarro Platelet mean volume (Bld) [Entitic vol] 9.6 fL Normal 9.5-13.5 [facility] Comment on above: Performed By: #### C BC ####[facility] Rafuaqkalv6125 [place] [phone]. Emelina Navarro PLT 271 103/ul Normal 150-450 [facility] Comment on above: Performed By: #### C BC ####[facility] Ghbtdrmsji0498 [place] [phone]. Emelina Navarro RBC 4.79 106/ul Normal 4.70-6.10 [facility] Comment on above: Performed By: #### C BC ####[facility] Ovlrimnxzw2586 [place] [address]Dr. Emelina Navarro WBC 13.4 103/ul Critically high 4.0-11.0 [facility] Comment on above: Performed By: #### C BC ####[facility] Wpkopeicmc6326 [place] [address]Dr. Emelina Ramon CRPon 03-26-2023 CRP 4.6 mg/dL Critically high <=1.0 [facility] Comment on above: Performed By: #### B MP, CRP, CMADM, BNP ####[facility] Ucvxnlssvw1393 [place] [address]Dr. Emelina Navarro LACTATE/LACTIC ACIDon 2022 Lactate [Moles/Vol] 1.6 mmol/L Normal 0.4-2.0 [facility] Comment on above: Performed By: #### L ACT ####[facility] Qqbakcdjjc214[address] [place], [place] [address]Dr. Emelina Navarro PROF CHEM 8 (BAS METB)on Anion gap [Moles/Vol] 9.6 mmol/L Normal [facility] Comment on above: Performed By: #### B MP, CRP, CMADM, BNP ####[facility] Almnvcfczn6976 [place] [address]Dr. Emelina Navarro Calcium [Mass/Vol] 8.4 mg/dL Critically low 8.5-10.1 [facility] Comment on above: Performed By: #### B MP, CRP, CMADM, BNP ####[facility] Rsnmghatjn2944 [place] [address]Dr. Emelina Navarro Chloride [Moles/Vol] 102 mmol/L Normal 98-107 [facility] Comment on above: Performed By: #### B MP, CRP, CMADM, BNP ####[facility] Xzeienepda6982 [place] [address]Dr. Emelina Navarro CO2 [Moles/Vol] 30.9 mmol/L Normal 21.0-32.0 [facility] Comment on above: Performed By: #### B MP, CRP, CMADM, BNP ####[facility] Adhvimymnv5400[address] [place], [place] [address]Dr. Emelina Navarro Creatinine [Mass/Vol] 1.73 mg/dL Critically high 0.70-1.30 [facility] Comment on above: Performed By: #### B MP, CRP, CMADM, BNP ####[facility] Tnhtgpyxoo8[address] [place], [place] [address]Dr. Emelina Navarro EGFR-AF [place] 48 mL/min/1.73m2 Critically low >=60 [facility] Comment on above: Performed By: #### B MP, CRP, CMADM, BNP ####[facility] Yitrpjhqpi5917[address] [place], [place] [address]Dr. Emelina Navarro EGFR-NON AF [place] 39 mL/min/1.73m2 Critically low >=60 [facility] Comment on above: Performed By: #### B MP, CRP, CMADM, BNP ####[facility] Eyyuhnrebt4416[address] [place], [place] [address]Dr. Emelina Navarro Glucose [Mass/Vol] 73 mg/dL Critically low 74-106 [facility] Comment on above: Performed By: #### B MP, CRP, CMADM, BNP ####[facility] Loypuzutra[address] [place], [place] [address]Dr. Emelina Navarro Potassium [Moles/Vol] 3.5 mmol/L Normal 3.5-5.1 [facility] Comment on above: Performed By: #### B MP, CRP, CMADM, BNP ####[facility] Callzkesrp89[address] [place], [place] [address]Dr. Emelina Navarro Sodium [Moles/Vol] 139 mmol/L Normal 136-145 [facility] Comment on above: Performed By: #### B MP, CRP, CMADM, BNP ####[facility] Snsmpgvlzv[address] [place], [place] [address]Dr. Emelina Navarro Urea nitrogen [Mass/Vol] 29.0 mg/dL Critically high 7.0-18.0 [facility] Comment on above: Performed By: #### B MP, CRP, CMADM, BNP ####[facility] Qaduavxefg5640 [place], [place] [address]Bd. Emelina Navarro Urea nitrogen/Creatinine [Mass ratio] 16.8 mg/mg Normal [facility] Comment on above: Performed By: #### B MP, CRP, CMADM, BNP ####[facility] Bzyzetswbe5568 [place], [place] [address]Pn. Emelina Navarro SED RATE WESTERGRENon 2022 SED RATE 60 mm/hr Critically high <=20 [facility] Comment on above: Performed By: #### S EDR ####[facility] Sqcoyxddlo9292 [place] [phone]. Emelina Navarro Office Visiton 03-21-2023 Follow-up visit [id number] Adwoa Porter 1955 M Date Provider [facility] 03/21/2023 [id number] BELCHER [facility] Family History Problem Relation Age of Onset Diabetes Mother Hypertension Mother Coronary artery disease Mother Family Status - Relation Status Age at Mother Level of Service:61252 MA OFFICE/OUTPATIENT ESTABLISHED MOD MDM 30-39 MIN Normal [facility] Basic Metabolic Panelon 04-0 Anion gap [Moles/Vol] 13.7 mmol/L Normal 6.0-15.0 [facility] Comment on above: Order Comment: pt is non fasting Performed By: #### G LULS #### Point of Care testing , Calcium [Mass/Vol] 9.2 mg/dL Normal 8.6-10.3 [facility] Comment on above: Order Comment: pt is non fasting Result Comment: PERF ORMED BY: [facility] [address] [place] [address] PATHOLOGIST [employer]IDGE [employer]OR RAFA BYRNE M.D. Performed By: #### G LULS #### Point of Care testing , Chloride [Moles/Vol] 94 mmol/L Low 98-107 [facility] Comment on above: Order Comment: pt is non fasting Performed By: #### G LULS #### Point of Care testing , CO2 [Moles/Vol] 31.1 mmol/L High 21.0-31.[address] [facility] Comment on above: Order Comment: pt is non fasting Performed By: #### G LULS #### Point of Care testing , Creatinine [Mass/Vol] 1.57 mg/dL High 0.70-1.30 [facility] Comment on above: Order Comment: pt is non fasting Performed By: #### G LULS #### Point of Care testing , GFR/1.73 sq M.predicted MDRD (S/P/Bld) [Vol rate/Area] 47.712 mL/min/{1.73_m2} Normal [facility] Comment on above: Order Comment: pt is non fasting Performed By: #### G LULS #### Point of Care testing , Glucose [Mass/Vol] 67 mg/dL Low 70-100 [facility] Comment on above: Order Comment: pt is non fasting Result Comment: [facility] Glucose Reference Range is dependent on time and content of last meal. Glucose of more than 200 mg/dL in a nonstressed, ambulatory subject supports the diagnosis of Diabetes Mellitus. ADA recommended reference range Performed By: #### G LULS #### Point of Care testing , Potassium [Moles/Vol] 3.8 mmol/L Normal 3.5-5.1 [facility] Comment on above: Order Comment: pt is non fasting Performed By: #### G LULS #### Point of Care testing , Sodium [Moles/Vol] 135 mmol/L Low 136-145 [facility] Comment on above: Order Comment: pt is non fasting Performed By: #### G LULS #### Point of Care testing , Urea nitrogen [Mass/Vol] 25 mg/dL Normal 7-25 [facility] Comment on above: Order Comment: pt is non fasting Performed By: #### G LULS #### Point of Care testing , Calcium [Mass/volume] in Ser um or PlasmaOrdered By: Yakov To on 02-21-2023 Calcium [Mass/Vol] 9.2 mg/dL 8.6-10.3 [facility] Carbon dioxide, total [Moles /volume] in Serum or PlasmaOrdered By: aYkov To on 02-21-2023 CO2 [Moles/Vol] 31.1 mmol/L 21.0-31.[address] [facility] Chloride [Moles/volume] in S mary or PlasmaOrdered By: Yakov To on 02-21-2023 Chloride [Moles/Vol] 94 mmol/L 98-107 [facility] Creatinine [Mass/volume] in Serum or PlasmaOrdered By: Yakov To on 02-21-2023 Creatinine [Mass/Vol] 1.57 mg/dL 0.70-1.30 [facility] Glucose [Mass/volume] in Ser um or PlasmaOrdered By: Yakov To on 02-21-2023 Glucose [Mass/Vol] 67 mg/dL 70-100 [facility] Comment on above: ADA recommended refe rence rangeRandom Glucose Reference Range is dependent on time and content of last meal. Glucose of more than 200 mg/dL in a nonstressed, ambulatory subject supports the diagnosis of Diabetes Mellitus. No Panel InformationOrdered By: Yakov To on 02-21-2023 Estimated GFR (CKD-EPI) 47.712 mL/Min [facility] Creatinine Clearance (Chem N/A [facility] Potassium [Moles/volume] in Serum or PlasmaOrdered By: Yakov To on 02-21-2023 Potassium [Moles/Vol] 3.8 mmol/L 3.5-5.1 [facility] Serum or plasma anion gap de terminationOrdered By: Yakov To on 02-21-2023 Anion gap [Moles/Vol] 13.7 mmol/L 6.0-15.0 [facility] Sodium [Moles/volume] in Ser um or PlasmaOrdered By: Yakov To on 02-21-2023 Sodium [Moles/Vol] 135 mmol/L 136-145 [facility] Urea nitrogen [Mass/volume] in Serum or PlasmaOrdered By: Yakov To on 02-21-2023 Urea nitrogen [Mass/Vol] 25 mg/dL 7-25 [facility] Calcium [Mass/volume] in Ser um or PlasmaOrdered By: Yakov To on 02-14-2023 Calcium [Mass/Vol] 9.1 mg/dL 8.6-10.3 [facility] Carbon dioxide, total [Moles /volume] in Serum or PlasmaOrdered By: Yakov To on 02-14-2023 CO2 [Moles/Vol] 30.7 mmol/L 21.0-31.[address] [facility] Chloride [Moles/volume] in S mary or PlasmaOrdered By: Yakov To on 02-14-2023 Chloride [Moles/Vol] 95 mmol/L 98-107 [facility] Creatinine [Mass/volume] in Serum or PlasmaOrdered By: Yakov To on 02-14-2023 Creatinine [Mass/Vol] 1.65 mg/dL 0.70-1.30 [facility] Glucose Glucometer (BldC) [M ass/Vol]Ordered By: Yakov To on 02-14-2023 Glucose [Mass/Vol] 197 mg/dL [facility] Comment on above: Random Glucose Refer ence Range is dependent on time and content of last meal. Glucose of more than 200 mg/dL in a nonstressed, ambulatory subject supports the diagnosis of Diabetes Mellitus. Glucose Poct Glucometerson 0 02-14-2023 Glucose [Mass/Vol] 197 mg/dL Normal [facility] Comment on above: Result Comment: [facility] Glucose Reference Range is dependent on time and content of last meal. Glucose of more than 200 mg/dL in a nonstressed, ambulatory subject supports the diagnosis of Diabetes Mellitus. PERFORMED BY: [facility] [address] [place] [address] PATHOLOGIST [employer]GE [employer] RAFA BYRNE M.D. Performed By: #### G ALVARADO #### Point of Care testing , Glucose [Mass/Vol] 350 mg/dL Normal [facility] Comment on above: Result Comment: [place] [facility] Glucose Reference Range is dependent on time and content of last meal. Glucose of more than 200 mg/dL in a nonstressed, ambulatory subject supports the diagnosis of Diabetes Mellitus. PERFORMED BY: [facility] [place] [address] PATHOLOGIST [employer]IDGE [employer]OR RAFA BYRNE M.D. Performed By: #### G LUCAROL #### Point of Care testing , Glucose [Mass/volume] in Ser um or PlasmaOrdered By: Yakov To on 02-14-2023 Glucose [Mass/Vol] 193 mg/dL 70-100 [facility] Comment on above: Delta: 400 on -9ADA [...] from glycated hemoglobin (Bld) [Mass/Vol] 252 mg/dL [facility] Hemoglobin A1c percentageOrd ered By: Yakov To on 02-14-2023 HbA1c (Bld) [Mass fraction] 10.4 % 4.3-5.6 [facility] Comment on above: Increased risk for d iabetes: 5.7 - 6.4diabetes: >6.4glycemic control for adults with diabetes: <7.0 Laboratory - Chemistry and C hemistry - challengeOrdered By: Yakov To on 02-14-2023 GFR/1.73 sq M.predicted MDRD (S/P/Bld) [Vol rate/Area] 44.950 mL/min/{1.73_m2} [facility] Laboratory - CoagulationOrde red By: Yakov To on 02-14-2023 PT Coag (PPP) [Time] 25.6 s 9.0-12.9 [facility] Magnesium [Mass/volume] in S mary or PlasmaOrdered By: Yakov To on 02-14-2023 Magnesium [Mass/Vol] 2.4 mg/dL 1.9-2.7 [facility] No Panel InformationOrdered By: Yakov To on 02-14-2023 Pharmacy Creatinine Clearance (Chem 49.22 [facility] Platelet poor plasma interna tional normalized ratio (INR) by coagulation assay (relatOrdered By: Yakov To on 02-14-2023 INR Coag (PPP) [Relative time] 2.2 {INR} [facility] Comment on above: INR Therapeutic Rang [...] 02-14-2023 Potassium [Moles/Vol] 3.7 mmol/L Normal 3.5-5.1 [facility] Comment on above: Result Comment: PERF ORMED BY: [facility] [address] [place] [address] PATHOLOGIST [employer]IDGE [employer] RAFA BYRNE M.D. Performed By: #### G LULS #### Point of Care testing , Potassium [Moles/volume] in Serum or PlasmaOrdered By: Yakov To on 02-14-2023 Potassium [Moles/Vol] 3.7 mmol/L 3.5-5.1 [facility] Serum or plasma anion gap de terminationOrdered By: Yakov To on 02-14-2023 Anion gap [Moles/Vol] 13.4 mmol/L 6.0-15.0 [facility] Sodium [Moles/volume] in Ser um or PlasmaOrdered By: Yakov To on 02-14-2023 Sodium [Moles/Vol] 136 mmol/L 136-145 [facility] Comment on above: Delta: 129 on -1648 Urea nitrogen [Mass/volume] in Serum or PlasmaOrdered By: Yakov To on 02-14-2023 Urea nitrogen [Mass/Vol] 43 mg/dL 7-25 [facility] Activated partial thrombopla stin time (aPTT) in platelet poor plasma by coagulation aOrdered By: Angela Aden on 02-13-2023 aPTT Coag (PPP) [Time] 38.3 s 25.1-36.5 [facility] Alanine aminotransferase [En zymatic activity/volume] in Serum or PlasmaOrdered By: Angela Aden on 02-13-2023 ALT [Catalytic activity/Vol] 21 U/L 7-52 [facility] Albumin [Mass/volume] in Ser um or Plasma by Bromocresol green (BCG) dye binding methoOrdered By: Angela Aden on 02-13-2023 Albumin BCG dye [Mass/Vol] 4.3 g/dL 3.5-5.7 [facility] Alkaline phosphatase [Enzyma tic activity/volume] in Serum or PlasmaOrdered By: Angela Aden on 02-13-2023 ALP [Catalytic activity/Vol] 98 U/L 34-104 [facility] Aspartate aminotransferase [ Enzymatic activity/volume] in Serum or PlasmaOrdered By: Angela Aden on 02-13-2023 AST [Catalytic activity/Vol] 32 U/L 13-39 [facility] Basophils Auto (Bld) [#/Vol] Ordered By: Angela Aden on 02-13-2023 Basophils (Bld) [#/Vol] 0.1 10*3/uL 0.0-0.2 [facility] Basophils/100 WBC Auto (Bld) Ordered By: Angela Aden on 02-13-2023 Basophils/100 WBC (Bld) 0.6 % . [facility] Beta hydroxybutyrate [Moles/ volume] in Serum or PlasmaOrdered By: Angela Aden on 02-13-2023 Beta hydroxybutyrate [Moles/Vol] 0.10 mmol/L 0.02-0.27 [facility] Bilirubin Test strip Ql (U)O rdered By: Angela Aden on 02-13-2023 Bilirubin Ql (U) Negative Negative [facility] Bilirubin.total [Mass/volume ] in Serum or PlasmaOrdered By: Angela Aden on 02-13-2023 Bilirubin [Mass/Vol] 1.3 mg/dL 0.3-1.0 [facility] Comment on above: Samples from patient s who have taken Naproxen have shown spurious elevation in Total Bilirubin levels. A metabolite of Naproxen, O-desmethylnaproxen, has been shown to interfere with the Jesi-Ananya method for measuring Total Bilirubin. Calcium [Mass/volume] in Ser um or PlasmaOrdered By: Angela Aden on 02-13-2023 Calcium [Mass/Vol] 9.3 mg/dL 8.6-10.3 [facility] Carbon dioxide, total [Moles /volume] in Serum or PlasmaOrdered By: Angela Aden on 02-13-2023 CO2 [Moles/Vol] 31.6 mmol/L 21.0-31.[address] [facility] Chloride [Moles/volume] in S mary or PlasmaOrdered By: Angela Aden on 02-13-2023 Chloride [Moles/Vol] 85 mmol/L 98-107 [facility] Color Auto (U)Ordered By: Miguel Aden on 02-13-2023 Color (U) Yellow Yellow [facility] Creatinine [Mass/volume] in Serum or PlasmaOrdered By: Angela Aden on 02-13-2023 Creatinine [Mass/Vol] 2.06 mg/dL 0.70-1.30 [facility] Eosinophils Auto (Bld) [#/Vo l]Ordered By: nAgela Aden on 02-13-2023 Eosinophils (Bld) [#/Vol] 0.4 10*3/uL 0.0-0.45 [facility] Eosinophils/100 WBC Auto (Bl d)Ordered By: Angela Aden on 02-13-2023 Eosinophils/100 WBC (Bld) 2.9 % . [facility] Erythrocyte distribution wid th Auto (RBC) [Ratio]Ordered By: Angela Aden on 02-13-2023 Erythrocyte distribution width (RBC) [Ratio] 17.9 % 12.0-14.8 [facility] Globulin Calc (S) [Mass/Vol] Ordered By: Angela Aden on 02-13-2023 Globulin (S) [Mass/Vol] 3.6 g/dL [facility] Glucose Glucometer (BldC) [M ass/Vol]Ordered By: Yakov To on 02-13-2023 Glucose [Mass/Vol] 216 mg/dL [facility] Comment on above: Random Glucose Refer ence Range is dependent on time and content of last meal. Glucose of more than 200 mg/dL in a nonstressed, ambulatory subject supports the diagnosis of Diabetes Mellitus. Glucose [Mass/volume] in Ser um or PlasmaOrdered By: Angela Aden on 02-13-2023 Glucose [Mass/Vol] 400 mg/dL 70-100 [facility] Comment on above: ADA recommended refe rence rangeRandom Glucose Reference Range is dependent on time and content of last meal. Glucose of more than 200 mg/dL in a nonstressed, ambulatory subject supports the diagnosis of Diabetes Mellitus. Hematocrit Auto (Bld) [Volum e fraction]Ordered By: Angela Aden on 02-13-2023 Hematocrit (Bld) [Volume fraction] 48.8 % 38.8-50.0 [facility] Hemoglobin [Mass/volume] in BloodOrdered By: Angela Aden on 02-13-2023 Hemoglobin (Bld) [Mass/Vol] 16.6 g/dL 13.0-17.0 [facility] Ketones Auto test strip (U) [Mass/Vol]Ordered By: Angela Aden on 02-13-2023 Ketones (U) [Mass/Vol] Negative Negative [facility] Laboratory - Chemistry and C hemistry - challengeOrdered By: Angela Aden on 02-13-2023 CO2 [Moles/Vol] 32.7 mmol/L 23.0-27.[address] [facility] HCO3 (Bld) [Moles/Vol] 31.2 mmol/L 23.0-29.0 [facility] GFR/1.73 sq M.predicted MDRD (S/P/Bld) [Vol rate/Area] 34.441 mL/min/{1.73_m2} [facility] Laboratory - CoagulationOrde red By: Angela Aden on 02-13-2023 PT Coag (PPP) [Time] 26.1 s 9.0-12.9 [facility] Leukocytes [#/volume] correc morris for nucleated erythrocytes in Blood by Automated counOrdered By: Angela Aden on 02-13-2023 WBC corrected for nucl RBC Auto (Bld) [#/Vol] 12.0 10*3/uL 4.1-10.5 [facility] Lymphocytes Auto (Bld) [#/Vo l]Ordered By: Angela Aden on 02-13-2023 Lymphocytes (Bld) [#/Vol] 2.1 10*3/uL 1.00-4.8 [facility] Lymphocytes/100 WBC Auto (Bl d)Ordered By: Angela Aden on 02-13-2023 Lymphocytes/100 WBC (Bld) 17.7 % . [facility] MCH Auto (RBC) [Entitic mass ]Ordered By: Angela Aden on 02-13-2023 MCH (RBC) [Entitic mass] 29.0 pg 27.5-35.2 [facility] MCHC Auto (RBC) [Mass/Vol]Or dered By: Angela Aden on 02-13-2023 MCHC (RBC) [Mass/Vol] 34.0 g/dL 32.5-35.6 [facility] MCV Auto (RBC) [Entitic vol] Ordered By: Angela Aden on 02-13-2023 MCV (RBC) [Entitic vol] 85.2 fL 83.5-101 [facility] Magnesium [Mass/volume] in S mary or PlasmaOrdered By: Yakov To on 02-13-2023 Magnesium [Mass/Vol] 2.5 mg/dL 1.9-2.7 [facility] Monocyte distribution width [Entitic volume] in Blood by AutomatedOrdered By: Angela Aden on 02-13-2023 Monocyte distribution width Auto (Bld) [Entitic vol] 19.79 % 0.00-20.00 [facility] Monocytes Auto (Bld) [#/Vol] Ordered By: Angela Aden on 02-13-2023 Monocytes (Bld) [#/Vol] 1.0 10*3/uL 0.0-0.8 [facility] Monocytes/100 WBC Auto (Bld) Ordered By: Angela Aden on 02-13-2023 Monocytes/100 WBC (Bld) 8.0 % . [facility] Neutrophils Auto (Bld) [#/Vo l]Ordered By: Angela Aden on 02-13-2023 Neutrophils (Bld) [#/Vol] 8.5 10*3/uL 1.8-7.7 [facility] Neutrophils/100 WBC Auto (Bl d)Ordered By: Angela Aden on 02-13-2023 Neutrophils/100 WBC (Bld) 70.8 % . [facility] Nitrite Test strip Ql (U)Ord ered By: Angela Aden on 02-13-2023 Nitrite Ql (U) Negative Negative [facility] No Panel InformationOrdered By: Angela Aden on 02-13-2023 Arterial Blood Base Excess 5.2 mmol/L -3.0-3.0 [facility] Arterial Blood Oxygen Content 9.0 mmol/L 6.6-9.7 [facility] Arterial Blood Oxygen Saturation 83.4 % 95.0-100.0 [facility] Arterial Blood Partial Pressure CO2 49.4 mm[Hg] 35.0-45.0 [facility] Arterial Blood Partial Pressure O2 48.2 mm[Hg] 80.0-100.0 [facility] Arterial Blood pH 7.42 7.35-7.45 [facility] Blood Gas Critical Value See comment [facility] Comment on above: Critical Value rdz d on: 02/13/2023 at 17:04 Blood Gas Sample Site Venous Fir [facility] FiO2 21 % [facility] Creatinine Clearance (Chem 39.26 [facility] Bedside Glucose Comment See comment [facility] Comment on above: Glu2: WILL NOTIFY DR /RN Nucleated erythrocytes [Pres ence] in Blood by Automated countOrdered By: Angela Aden on 02-13-2023 Nucleated RBC Auto Ql (Bld) 0.1 /100{WBC} 0-0.5 [facility] Platelet mean volume Auto (B ld) [Entitic vol]Ordered By: Angela Aden on 02-13-2023 Platelet mean volume (Bld) [Entitic vol] 8.6 fL 6.6-10.1 [facility] Platelet poor plasma interna tional normalized ratio (INR) by coagulation assay (relatOrdered By: Angela Aden on 02-13-2023 INR Coag (PPP) [Relative time] 2.3 {INR} [facility] Comment on above: INR Therapeutic Rang [...] 02-13-2023 Platelets (Bld) [#/Vol] 218 10*3/uL 150-450 [facility] Potassium [Moles/volume] in Serum or PlasmaOrdered By: Angela Aden on 02-13-2023 Potassium [Moles/Vol] 2.9 mmol/L 3.5-5.1 [facility] Comment on above: Hemolysis is present at a level that could interfere with the result. Protein Auto test strip (U) [Mass/Vol]Ordered By: Angela Aden on 02-13-2023 Protein (U) [Mass/Vol] Negative Negative [facility] Protein [Mass/volume] in Ser um or PlasmaOrdered By: Angela Aden on 02-13-2023 Protein [Mass/Vol] 7.9 g/dL 6.4-8.9 [facility] RBC Auto (Bld) [#/Vol]Ordere d By: Angela Aden on 02-13-2023 RBC (Bld) [#/Vol] 5.72 10*6/uL 3.90-5.60 [facility] Serum or plasma albumin/glob ulin mass ratioOrdered By: Angela Aden on 02-13-2023 Albumin/Globulin [Mass ratio] 1.2 {ratio} [facility] Serum or plasma anion gap de terminationOrdered By: Angela Aden on 02-13-2023 Anion gap [Moles/Vol] 15.3 mmol/L 6.0-15.0 [facility] Sodium [Moles/volume] in Ser um or PlasmaOrdered By: Angela Aden on 02-13-2023 Sodium [Moles/Vol] 129 mmol/L 136-145 [facility] Specific gravity Auto test s trip (U) [Rel density]Ordered By: Angela Aden on 02-13-2023 Specific gravity (U) [Rel density] 1.018 1.001-1.03 0 [facility] Troponin I.cardiac [Mass/vol ume] in Serum or Plasma by Detection limit <= 0.01 ng/Ordered By: Angela Aden on 02-13-2023 Troponin I.cardiac DL <= 0.01 ng/mL [Mass/Vol] 69.4 pg/mL 0.0-20.0 [facility] Comment on above: Critical Result : Ca lled to and read back by: PROMISE VIEIRA at: 02/13/2023 18:35:16 by:[id number] Urea nitrogen [Mass/volume] in Serum or PlasmaOrdered By: Angela Aden on 02-13-2023 Urea nitrogen [Mass/Vol] 53 mg/dL 7-25 [facility] Urine clarity by refractomet ry automatedOrdered By: Angela Aden on 02-13-2023 Clarity Refractometry automated (U) Clear Clear [facility] Urine glucose measurement by automated test strip (mass/volume)Ordered By: Angela Aden on 02-13-2023 Glucose Auto test strip (U) [Mass/Vol] >=1000 mg/dL Normal [facility] Urine hemoglobin detection b y automated test stripOrdered By: Angela Aden on 02-13-2023 Hemoglobin Auto test strip Ql (U) Negative Negative [facility] Urine leukocyte esterase det ection by automated test stripOrdered By: Angela Aden on 02-13-2023 Leukocyte esterase Auto test strip Ql (U) Negative Negative [facility] Urobilinogen Auto test strip (U) [Mass/Vol]Ordered By: Angela Aden on 02-13-2023 Urobilinogen (U) [Mass/Vol] Normal mg/dL Normal [facility] WBC Auto (Bld) [#/Vol]Ordere d By: Angela Aden on 02-13-2023 WBC (Bld) [#/Vol] 12.0 10*3/uL 4.1-10.5 [facility] pH Auto test strip (U)Ordere d By: Angela Aden on 02-13-2023 pH (U) 6.0 [pH] 5.0-9.0 [facility] BNPon 01-29-2023 Natriuretic peptide B (Bld) [Mass/Vol] 6099.0 pg/mL Critically high <=900.0 [facility] Comment on above: Performed By: #### C MP, BNP ####[facility] [address] [place], [place] [address]Dr. Emelina Navarro CBC AUTO DIFFon 01-29-2023 BASO # 0.1 103/ul Normal 0.0-0.1 [facility] Comment on above: Performed By: #### C BC ####[facility] [address] [place], [place] [address]Dr. Emelina Navarro Basophils/100 WBC (Bld) 0.3 % Normal 0.2-2.0 [facility] Comment on above: Performed By: #### C BC ####[facility] [address] [place], [place] [address]Dr. Emelina Navarro EO # 0.3 103/ul Normal 0.0-0.7 [facility] Comment on above: Performed By: #### C BC ####[facility] [address] [place], [place] [address]Dr. Emelina Navarro Eosinophils/100 WBC (Bld) 1.9 % Normal 0.9-7.0 [facility] Comment on above: Performed By: #### C BC ####[facility] [address] [place], [place] [address]Dr. Emelina Navarro Erythrocyte distribution width (RBC) [Ratio] 18.5 % Critically high 11.0-15.0 [facility] Comment on above: Performed By: #### C BC ####[facility] [address] [place] [address]Dr. Emelina Navarro Hematocrit (Bld) [Volume fraction] 49.7 % Normal 42.0-54.0 [facility] Comment on above: Performed By: #### C BC ####[facility] [address] [place] [address]Dr. Emelina Navarro Hemoglobin (Bld) [Mass/Vol] 16.3 g/dL Normal 14.0-18.0 [facility] Comment on above: Performed By: #### C BC ####[facility] [address] [place], [place] [address]Dr. Emelina Navarro IG # 0.07 10e3/ul Critically high 0.00-0.03 [facility] Comment on above: Performed By: #### C BC ####[facility] [address] [place], [place] [address]Dr. Awildanitza Navarro IG % 0.4 % Normal 0.0-0.5 [facility] Comment on above: Performed By: #### C BC ####[facility] [address] [place], [place] [address]Dr. Emelina Ramon LYMPH # 2.6 103/ul Normal 1.2-3.8 [facility] Comment on above: Performed By: #### C BC ####[facility] [address] [place], [place] [address]Dr. Emelina Ramon Lymphocytes/100 WBC (Bld) 16.9 % Critically low 20.5-60.0 [facility] Comment on above: Performed By: #### C BC ####[facility] [address] [place], [place] [address]Dr. Awildanitza Navarro MANUAL DIFF REQ NO Normal [facility] Comment on above: Performed By: #### C BC ####[facility] [address] [place] [address]Dr. Emelina Ramon MCH (RBC) [Entitic mass] 28.4 pg Normal 25.9-34.0 [facility] Comment on above: Performed By: #### C BC ####[facility] [address] [place] [id number]. Emelina Navarro MCHC (RBC) [Mass/Vol] 32.8 g/dL Normal 29.9-35.2 [facility] Comment on above: Performed By: #### C BC ####[facility] [address] [place] [id number]. Emelina Ramon MCV (RBC) [Entitic vol] 86.6 fL Normal 80.0-94.0 [facility] Comment on above: Performed By: #### C BC ####[facility] [address] [place] [id number]. Emelina Ramon MONO # 1.2 103/ul Critically high 0.3-0.8 [facility] Comment on above: Performed By: #### C BC ####[facility] Eolebvaraz[address] [place], [place] [address]Dr. Emelina Navarro Monocytes/100 WBC (Bld) 7.7 % Normal 1.7-12.0 [facility] Comment on above: Performed By: #### C BC ####[facility] Eptaukjyxs93[address] [place], [place] [address]Dr. Emelina Navarro NEUT # 11.4 103/ul Critically high 1.4-6.5 [facility] Comment on above: Performed By: #### C BC ####[facility] Mbppboehlo6[address] [place], [place] [address]Dr. Emelina Navarro Neutrophils/100 WBC (Bld) 72.8 % Normal 43.0-75.0 [facility] Comment on above: Performed By: #### C BC ####[facility] [address] [place], [place] [id number]. Emelina Navarro Platelet mean volume (Bld) [Entitic vol] 9.8 fL Normal 9.5-13.5 [facility] Comment on above: Performed By: #### C BC ####[facility] Xjzqspqdyl[address] [place], [place] [address]Dr. Emelina Navarro PLT 200 103/ul Normal 150-450 [facility] Comment on above: Performed By: #### C BC ####[facility] M[address] [place], [place] [address]Wt. Emelina Navarro RBC 5.74 106/ul Normal 4.70-6.10 [facility] Comment on above: Performed By: #### C BC ####[facility] Ojdoz[address]40[address] [place], [place] [address]Av. Emelina Navarro WBC 15.6 103/ul Critically high 4.0-11.0 [facility] Comment on above: Performed By: #### C BC ####[facility] Fzhxggxsnu4154 [place], [place] [address]Gw. Emelina Navarro DIGOXINon 01-29-2023 DIG 1.1 ng/mL Normal 0.9-2.0 [facility] Comment on above: Performed By: #### D IG ####[facility] [address] [place] [id number]. Emelina Navarro Office Visiton 01-29-2023 Follow-up visit [id number] Adwoa Porter 1955 M Date Provider Department Center 01/29/2023 SUSHIL CAO [facility] Family History Problem Relation Age of Onset Diabetes Mother Hypertension Mother Coronary artery disease Mother Family Status - Relation Status Age at Mother Level of Service:72207 MA OFFICE/OUTPATIENT ESTABLISHED MOD MDM 30-39 MIN Reason for Visit and Comments: Atrial Fibrillation [80] Coronary Artery Disease [187] Congestive Heart Failure [127] Normal [facility] PROF 14(COMP METB)on 023 Albumin [Mass/Vol] 3.8 g/dL Normal 3.4-5.0 [facility] Comment on above: Performed By: #### C MP, BNP ####[facility] [address]vvdjtqcg[address] [place] [id number]. Emelina Navarro Albumin/Globulin [Mass ratio] 0.9 {ratio} Normal [facility] Comment on above: Performed By: #### C MP, BNP ####[facility] Zvpekqiuvu15[address] [place] [id number]. Emelina Navarro ALP [Catalytic activity/Vol] 126 U/L Critically high 46-116 [facility] Comment on above: Performed By: #### C MP, BNP ####[facility] [address]mndrpx[address] [place] [address]Dr. Emelina Navarro ALT [Catalytic activity/Vol] 29 U/L Normal 16-63 [facility] Comment on above: Performed By: #### C MP, BNP ####[facility] Lkcvlvrsqn5[address] [place] [address]Dr. Awildanitza Ramon Anion gap [Moles/Vol] 12.2 mmol/L Normal [facility] Comment on above: Performed By: #### C MP, BNP ####[facility] Ccdqmfuegf0[address] [place], [place] [address]Dr. Awildanitza Navarro AST [Catalytic activity/Vol] 28 U/L Normal 15-37 [facility] Comment on above: Performed By: #### C MP, BNP ####[facility] Ngtsrqqcxz3633[address] [place], [place] [address]Dr. Emelina Navarro Bilirubin [Mass/Vol] 1.8 mg/dL Critically high 0.2-1.0 [facility] Comment on above: Performed By: #### C MP, BNP ####[facility] Ovbbzuudkp2230[address] [place], [place] [address]Dr. Emelina Navarro Calcium [Mass/Vol] 9.9 mg/dL Normal 8.5-10.1 [facility] Comment on above: Performed By: #### C MP, BNP ####[facility] Ltryzajqjp3765[address] [place], [place] [address]Dr. Emelina Navarro Chloride [Moles/Vol] 96 mmol/L Critically low 98-107 [facility] Comment on above: Performed By: #### C MP, BNP ####[facility] Ewfxadrocp8348[address] [place], [place] [address]Dr. Emelina Navarro CO2 [Moles/Vol] 33.6 mmol/L Critically high 21.0-32.0 [facility] Comment on above: Performed By: #### C MP, BNP ####[facility] Ugaozifjoc065[address] [place], [place] [address]Dr. Emelina Navarro Creatinine [Mass/Vol] 1.66 mg/dL Critically high 0.70-1.30 [facility] Comment on above: Performed By: #### C MP, BNP ####[facility] Vplzglueyw38[address] [place], [place] [address]Dr. Emelina Navarro EGFR-AF [place] 50 mL/min/1.73m2 Critically low >=60 [facility] Comment on above: Performed By: #### C MP, BNP ####[facility] Frhiuokooz[address] [place], [place] [address]Dr. Emelina Navarro EGFR-NON AF [place] 41 mL/min/1.73m2 Critically low >=60 [facility] Comment on above: Performed By: #### C MP, BNP ####[facility] Pqqwamsdts27[address] [place], [place] [address]Dr. Emelina Navarro Globulin (S) [Mass/Vol] 4.3 g/dL Normal [facility] Comment on above: Performed By: #### C MP, BNP ####[facility] Tdogtnbfue5827[address] [place], [place] [address]Dr. Emelina Navarro Glucose [Mass/Vol] 218 mg/dL Critically high 74-106 [facility] Comment on above: Performed By: #### C MP, BNP ####[facility] Umgovuivql9747[address] [place], [place] [address]Dr. Emelina Navarro Potassium [Moles/Vol] 4.8 mmol/L Normal 3.5-5.1 [facility] Comment on above: Performed By: #### C MP, BNP ####[facility] Huwthhpcqj7592[address] [place], [place] [address]Dr. Emelina Navarro Protein [Mass/Vol] 8.1 g/dL Normal 6.4-8.2 [facility] Comment on above: Performed By: #### C MP, BNP ####[facility] Rkdejohdss5218[address] [place], [place] [address]Dr. Emelina Navarro Sodium [Moles/Vol] 137 mmol/L Normal 136-145 [facility] Comment on above: Performed By: #### C MP, BNP ####[facility] Grpztgatvf992[address] [place], [place] [address]Dr. Emelina Navarro Urea nitrogen [Mass/Vol] 31.0 mg/dL Critically high 7.0-18.0 [facility] Comment on above: Performed By: #### C MP, BNP ####[facility] Mkycycqxfp6723[address] [place], [place] [address]Dr. Emelina Navarro Urea nitrogen/Creatinine [Mass ratio] 18.7 mg/mg Normal [facility] Comment on above: Performed By: #### C MP, BNP ####[facility] Gmgaekmpvw12[address] [place], [place] [address]Dr. Emelina Navarro BNPon 01-11-2023 Natriuretic peptide B (Bld) [Mass/Vol] 6024.0 pg/mL Critically high <=900.0 [facility] Comment on above: Performed By: #### B HORTICULTURAL TECHNICAL OFFICER, CMP ####[facility] Kczimmoolj7165[address] [place], [place] [address]Dr. Emelina Navarro CBC AUTO DIFFon 01-11-2023 BASO # 0.0 103/ul Normal 0.0-0.1 [facility] Comment on above: Performed By: #### C BC ####[facility] Jvdvpzpomw9146[address] [place], [place] [address]Dr. Emelina Navarro Basophils/100 WBC (Bld) 0.3 % Normal 0.2-2.0 [facility] Comment on above: Performed By: #### C BC ####[facility] Lxaladfwuf[address] [place], [place] [address]Dr. Emelina Navarro EO # 0.4 103/ul Normal 0.0-0.7 [facility] Comment on above: Performed By: #### C BC ####[facility] Coqevhmnpp9225[address] [place], [place] [address]Dr. Emelina aNvarro Eosinophils/100 WBC (Bld) 3.3 % Normal 0.9-7.0 [facility] Comment on above: Performed By: #### C BC ####[facility] Cvlhdppcpx8728[address] [place], [place] [address]Dr. Emelina Navarro Erythrocyte distribution width (RBC) [Ratio] 16.7 % Critically high 11.0-15.0 [facility] Comment on above: Performed By: #### C BC ####[facility] [address]xyzhi[address] [place] [address]Dr. Emelina Navarro Hematocrit (Bld) [Volume fraction] 41.5 % Critically low 42.0-54.0 [facility] Comment on above: Performed By: #### C BC ####[facility] Ilpgdcyvtg6548 [place] [address]Dr. Emelina Navarro Hemoglobin (Bld) [Mass/Vol] 13.8 g/dL Critically low 14.0-18.0 [facility] Comment on above: Performed By: #### C BC ####[facility] Mrncuooeqg1607[address] [place], [place] [address]DrWesley Navarro IG # 0.04 10e3/ul Critically high 0.00-0.03 [facility] Comment on above: Performed By: #### C BC ####[facility] Qtgpmhefwu8923[address] [place], [place] [address]Dr. Emelina Navarro IG % 0.3 % Normal 0.0-0.5 [facility] Comment on above: Performed By: #### C BC ####[facility] Zmjsrsslds8340[address] [place], [place] [address]DrWesley Navarro LYMPH # 1.8 103/ul Normal 1.2-3.8 [facility] Comment on above: Performed By: #### C BC ####[facility] Blbcbtyoux[address] [place], [place] [address]DrWesley Navarro Lymphocytes/100 WBC (Bld) 15.1 % Critically low 20.5-60.0 [facility] Comment on above: Performed By: #### C BC ####[facility] Txjrfnhfoa6[address] [place], [place] [address]DrWesley Navarro MANUAL DIFF REQ NO Normal [facility] Comment on above: Performed By: #### C BC ####[facility] D[address]wlvxdzj58[address] [place] [address]Dr. Emelina Navarro MCH (RBC) [Entitic mass] 29.0 pg Normal 25.9-34.0 [facility] Comment on above: Performed By: #### C BC ####[facility] Pctgfqwuae5799 [place] [address]Dr. Emelina Ramon MCHC (RBC) [Mass/Vol] 33.3 g/dL Normal 29.9-35.2 [facility] Comment on above: Performed By: #### C BC ####[facility] Tucznuqtjf[address] [place] [address]Dr. Emelina Navarro MCV (RBC) [Entitic vol] 87.2 fL Normal 80.0-94.0 [facility] Comment on above: Performed By: #### C BC ####[facility] Ydepsmwptc9637[address] [place], [place] [address]Dr. Emelina Navarro MONO # 0.7 103/ul Normal 0.3-0.8 [facility] Comment on above: Performed By: #### C BC ####[facility] Adygvmidvm[address] [place], [place] [address]Dr. Emelina Navarro Monocytes/100 WBC (Bld) 5.9 % Normal 1.7-12.0 [facility] Comment on above: Performed By: #### C BC ####[facility] Iwixuqvdlg[address] [place], [place] [address]Dr. Emelina Navarro NEUT # 8.9 103/ul Critically high 1.4-6.5 [facility] Comment on above: Performed By: #### C BC ####[facility] Ciijupxqjw[address] [place], [place] [address]Dr. Emelina Navarro Neutrophils/100 WBC (Bld) 75.1 % Critically high 43.0-75.0 [facility] Comment on above: Performed By: #### C BC ####[facility] Kzgzmoqohb[address] [place], [place] [address]Dr. Emelina Navarro Platelet mean volume (Bld) [Entitic vol] 11.7 fL Normal 9.5-13.5 [facility] Comment on above: Performed By: #### C BC ####[facility] Juruthgkuh[address] [place], [place] [address]Dr. Emelina Navarro PLT 124 103/ul Critically low 150-450 [facility] Comment on above: Performed By: #### C BC ####[facility] Ouponbvgdt5204 [place] [address]Dr. Awildanitza Ramon RBC 4.76 106/ul Normal 4.70-6.10 [facility] Comment on above: Performed By: #### C BC ####[facility] Jidtvxbkrq77[address] [place] [address]Dr. Awildanitza Ramon WBC 11.8 103/ul Critically high 4.0-11.0 [facility] Comment on above: Performed By: #### C BC ####[facility] Pdtselyzgi4189 [place] [address]Dr. Emelina Navarro POINT OF CARE GLUCOSEon 12-21 Glucose [Mass/Vol] 339 mg/dL Critically high 74-106 [facility] Comment on above: Performed By: #### P OCGLUC ####[facility] Sjgoeqthim7813[address] [place], [place] [address]DrWesley Navarro PROF 14(COMP METB)on 023 Albumin [Mass/Vol] 3.3 g/dL Critically low 3.4-5.0 [facility] Comment on above: Performed By: #### B HORTICULTURAL TECHNICAL OFFICER, CMP ####[facility] Hngdoyezzd5836 [place] [address]Dr. Emelina Navarro Albumin/Globulin [Mass ratio] 0.8 {ratio} Normal [facility] Comment on above: Performed By: #### B HORTICULTURAL TECHNICAL OFFICER, CMP ####[facility] Xqwrplcwvw7322 [place] [address]Dr. Emelina Navarro ALP [Catalytic activity/Vol] 163 U/L Critically high 46-116 [facility] Comment on above: Performed By: #### B HORTICULTURAL TECHNICAL OFFICER, CMP ####[facility] Rqsqfeqeby4338 [place] [address]Dr. Emelina Navarro ALT [Catalytic activity/Vol] 27 U/L Normal 16-63 [facility] Comment on above: Performed By: #### B HORTICULTURAL TECHNICAL OFFICER, CMP ####[facility] Rywjpkagpn9[address] [place], [place] [address]Dr. Emelina Navarro Anion gap [Moles/Vol] 10.5 mmol/L Normal [facility] Comment on above: Performed By: #### B HORTICULTURAL TECHNICAL OFFICER, CMP ####[facility] Lhfkphyvhb0720[address] [place], [place] [address]Dr. Emelina Navarro AST [Catalytic activity/Vol] 28 U/L Normal 15-37 [facility] Comment on above: Performed By: #### B HORTICULTURAL TECHNICAL OFFICER, CMP ####[facility] Weunlbrmjt8137[address] [place], [place] [address]Dr. Emelina Navarro Bilirubin [Mass/Vol] 1.3 mg/dL Critically high 0.2-1.0 [facility] Comment on above: Performed By: #### B HORTICULTURAL TECHNICAL OFFICER, CMP ####[facility] Rcpwligybx8454[address] [place], [place] [address]Dr. Emelina Navarro Calcium [Mass/Vol] 9.0 mg/dL Normal 8.5-10.1 [facility] Comment on above: Performed By: #### B HORTICULTURAL TECHNICAL OFFICER, CMP ####[facility] Pbzgdqtwld6606[address] [place], [place] [address]Dr. Emelina Ramon Chloride [Moles/Vol] 91 mmol/L Critically low 98-107 [facility] Comment on above: Performed By: #### B HORTICULTURAL TECHNICAL OFFICER, CMP ####[facility] Jjqwdnlgot078[address] [place], [place] [address]Dr. Emelina Navarro CO2 [Moles/Vol] 32.9 mmol/L Critically high 21.0-32.0 [facility] Comment on above: Performed By: #### B HORTICULTURAL TECHNICAL OFFICER, CMP ####[facility] Plmbxwydlf3014[address] [place], [place] [address]Dr. Emelina Navarro Creatinine [Mass/Vol] 1.84 mg/dL Critically high 0.70-1.30 [facility] Comment on above: Performed By: #### B HORTICULTURAL TECHNICAL OFFICER, CMP ####[facility] Iqrcsleawv75[address] [place], [place] [address]Dr. Emelina Ramon EGFR-AF [place] 45 mL/min/1.73m2 Critically low >=60 [facility] Comment on above: Performed By: #### B HORTICULTURAL TECHNICAL OFFICER, CMP ####[facility] Cshjpusmul8[address] [place] [id number]. Emelina Navarro EGFR-NON AF [place] 37 mL/min/1.73m2 Critically low >=60 [facility] Comment on above: Performed By: #### B HORTICULTURAL TECHNICAL OFFICER, CMP ####[facility] Kfucwmroli5690 [place] [phone]. Emelina Navarro Globulin (S) [Mass/Vol] 4.3 g/dL Normal [facility] Comment on above: Performed By: #### B HORTICULTURAL TECHNICAL OFFICER, CMP ####[facility] Gngmssoxgb9747 [place] [address]Dr. Emelina Navarro Glucose [Mass/Vol] 305 mg/dL Critically high 74-106 [facility] Comment on above: Performed By: #### B HORTICULTURAL TECHNICAL OFFICER, CMP ####[facility] Sfqwoynxpz7538[address] [place], [place] [address]Dr. Emelina Navarro Potassium [Moles/Vol] 3.4 mmol/L Critically low 3.5-5.1 [facility] Comment on above: Performed By: #### B HORTICULTURAL TECHNICAL OFFICER, CMP ####[facility] Wgleahtjxv1365[address] [place], [place] [address]Dr. Eemlina Navarro Protein [Mass/Vol] 7.6 g/dL Normal 6.4-8.2 [facility] Comment on above: Performed By: #### B HORTICULTURAL TECHNICAL OFFICER, CMP ####[facility] Nsipsqbyjq4443[address] [place], [place] [address]Dr. Emelina Navarro Sodium [Moles/Vol] 131 mmol/L Critically low 136-145 [facility] Comment on above: Performed By: #### B HORTICULTURAL TECHNICAL OFFICER, CMP ####[facility] Jkgafevlmo1052[address] [place], [place] [address]Dr. Emelina Navarro Urea nitrogen [Mass/Vol] 62.0 mg/dL Critically high 7.0-18.0 [facility] Comment on above: Performed By: #### B HORTICULTURAL TECHNICAL OFFICER, CMP ####[facility] Gvtgrvynmj737[address] [place], [place] [address]Dr. Emelina Navarro Urea nitrogen/Creatinine [Mass ratio] 33.7 mg/mg Normal [facility] Comment on above: Performed By: #### B HORTICULTURAL TECHNICAL OFFICER, CMP ####[facility] Nillufswnx1720[address] [place], [place] [address]Dr. Emelina Navarro BNPon 01-10-2023 Natriuretic peptide B (Bld) [Mass/Vol] 8763.0 pg/mL Critically high <=900.0 [facility] Comment on above: Performed By: #### C MP, BNP ####[facility] Fydbjyrhrp82[address] [place], [place] [address]Dr. Emelina Navarro CBC AUTO DIFFon 01-10-2023 BASO # 0.0 103/ul Normal 0.0-0.1 [facility] Comment on above: Performed By: #### C BC ####[facility] Vpoobaievv16[address] [place], [place] [address]Dr. Emelina Navarro Basophils/100 WBC (Bld) 0.4 % Normal 0.2-2.0 [facility] Comment on above: Performed By: #### C BC ####[facility] Nvksyhegoh1237[address] [place], [place] [address]Dr. Awildanitza Navarro EO # 0.3 103/ul Normal 0.0-0.7 [facility] Comment on above: Performed By: #### C BC ####[facility] Agfyvlhcyr704[address] [place], [place] [address]Dr. Emelina Ramon Eosinophils/100 WBC (Bld) 2.8 % Normal 0.9-7.0 [facility] Comment on above: Performed By: #### C BC ####[facility] Rpsnnmwzrc883[address] [place], [place] [address]Dr. Awildanitza Navarro Erythrocyte distribution width (RBC) [Ratio] 17.2 % Critically high 11.0-15.0 [facility] Comment on above: Performed By: #### C BC ####[facility] Gmcdlvpylk[address] [place], [place] [address]Dr. Awildanitza Ramon Hematocrit (Bld) [Volume fraction] 42.1 % Normal 42.0-54.0 [facility] Comment on above: Performed By: #### C BC ####[facility] Qrnjomdwdc2920 [place] [address]Dr. Emelina Navarro Hemoglobin (Bld) [Mass/Vol] 13.3 g/dL Critically low 14.0-18.0 [facility] Comment on above: Performed By: #### C BC ####[facility] Yohzayaoaz5399 [place] [address]Dr. Emelina Navarro IG # 0.05 10e3/ul Critically high 0.00-0.03 The [facility] Comment on above: Performed By: #### C BC ####[facility] Tvarsoozcn8842 [place] [address]Dr. Emelina Navarro IG % 0.4 % Normal 0.0-0.5 [facility] Comment on above: Performed By: #### C BC ####[facility] Zkhuahmguu8358 [place] [address]Dr. Emelina Navarro LYMPH # 1.7 103/ul Normal 1.2-3.8 [facility] Comment on above: Performed By: #### C BC ####[facility] Ezfhqfmwmv0231 [place] [address]Dr. Emelina Navarro Lymphocytes/100 WBC (Bld) 14.8 % Critically low 20.5-60.0 [facility] Comment on above: Performed By: #### C BC ####[facility] Mfcicpghlq0471 [place] [address]Dr. Emelina Navarro MANUAL DIFF REQ NO Normal [facility] Comment on above: Performed By: #### C BC ####[facility] Zkcllrpedo0600 [place] [address]Dr. Emelina Navarro MCH (RBC) [Entitic mass] 28.4 pg Normal 25.9-34.0 [facility] Comment on above: Performed By: #### C BC ####[facility] Fpeivcnyie4085 [place] [address]Dr. Emelina Navarro MCHC (RBC) [Mass/Vol] 31.6 g/dL Normal 29.9-35.2 [facility] Comment on above: Performed By: #### C BC ####[facility] Vwwrpusyfj9[address] [place], [place] [address]Dr. Emelina Navarro MCV (RBC) [Entitic vol] 89.8 fL Normal 80.0-94.0 [facility] Comment on above: Performed By: #### C BC ####[facility] Yznvypiggv3349 [place] [address]Dr. Emelina Navarro MONO # 0.9 103/ul Critically high 0.3-0.8 [facility] Comment on above: Performed By: #### C BC ####[facility] Rxbkjjihkx3124 [place] [address]Dr. Emelina Navarro Monocytes/100 WBC (Bld) 7.6 % Normal 1.7-12.0 [facility] Comment on above: Performed By: #### C BC ####[facility] Nimqxhpsxu6691 [place] [address]Dr. Emelina Navarro NEUT # 8.4 103/ul Critically high 1.4-6.5 [facility] Comment on above: Performed By: #### C BC ####[facility] Epeuvgdwmz3812 [place] [address]Dr. Emelina Navarro Neutrophils/100 WBC (Bld) 74.0 % Normal 43.0-75.0 [facility] Comment on above: Performed By: #### C BC ####[facility] Qltairocmp1633 [place] [address]Dr. Emelina Navarro Platelet mean volume (Bld) [Entitic vol] 11.1 fL Normal 9.5-13.5 [facility] Comment on above: Performed By: #### C BC ####[facility] Xgdcoarqkk6294 [place] [address]Dr. Emelina Navarro PLT 111 103/ul Critically low 150-450 [facility] Comment on above: Performed By: #### C BC ####[facility] Zplcrwjciy2567 [place] [id number]. Emelina Navarro RBC 4.69 106/ul Critically low 4.70-6.10 [facility] Comment on above: Performed By: #### C BC ####[facility] Pcocrwsrxe4360 [place] [address]Dr. Emelina Navarro WBC 11.4 103/ul Critically high 4.0-11.0 [facility] Comment on above: Performed By: #### C BC ####[facility] Lddkogxwmy9440[address] [place], [place] [address]Dr. Emelina Navarro PROF 14(COMP METB)on 023 Albumin [Mass/Vol] 3.3 g/dL Critically low 3.4-5.0 [facility] Comment on above: Performed By: #### C MP, BNP ####[facility] Rpbtyqjfkt65[address] [place], [place] [address]Dr. Emelina Navarro Albumin/Globulin [Mass ratio] 0.8 {ratio} Normal [facility] Comment on above: Performed By: #### C MP, BNP ####[facility] Onildjczko9404[address] [place], [place] [address]Dr. Emelina Navarro ALP [Catalytic activity/Vol] 165 U/L Critically high 46-116 [facility] Comment on above: Performed By: #### C MP, BNP ####[facility] Cbmusolwtp[address] [place], [place] [address]Dr. Emelina Navarro ALT [Catalytic activity/Vol] 27 U/L Normal 16-63 [facility] Comment on above: Performed By: #### C MP, BNP ####[facility] Xfwerglqal4[address] [place], [place] [address]Dr. Emelina Navarro Anion gap [Moles/Vol] 9.5 mmol/L Normal [facility] Comment on above: Performed By: #### C MP, BNP ####[facility] Pjqawvqnbf3594[address] [place], [place] [address]Dr. Emelina Navarro AST [Catalytic activity/Vol] 24 U/L Normal 15-37 [facility] Comment on above: Performed By: #### C MP, BNP ####[facility] Htnkqbuhvl[address] [place], [place] [address]Dr. Emelina Navarro Bilirubin [Mass/Vol] 1.3 mg/dL Critically high 0.2-1.0 [facility] Comment on above: Performed By: #### C MP, BNP ####[facility] Aznzenvixx6943 [place] [address]Dr. Emelina Navarro Calcium [Mass/Vol] 9.3 mg/dL Normal 8.5-10.1 [facility] Comment on above: Performed By: #### C MP, BNP ####[facility] Oiogfergsm7068 [place] [address]Dr. Emelina Navarro Chloride [Moles/Vol] 93 mmol/L Critically low 98-107 [facility] Comment on above: Performed By: #### C MP, BNP ####[facility] Dudykeqwqz8646 [place] [address]Dr. Emelina Navarro CO2 [Moles/Vol] 36.4 mmol/L Critically high 21.0-32.0 [facility] Comment on above: Performed By: #### C MP, BNP ####[facility] Xqxnbjwsw[address] [place], [place] [address]Dr. Emelina Navarro Creatinine [Mass/Vol] 1.99 mg/dL Critically high 0.70-1.30 [facility] Comment on above: Performed By: #### C MP, BNP ####[facility] Avsebuthmr99[address] [place], [place] [address]Dr. Emelina Navarro EGFR-AF [place] 41 mL/min/1.73m2 Critically low >=60 [facility] Comment on above: Performed By: #### C MP, BNP ####[facility] Adixptcvvg187[address] [place], [place] [address]Dr. Emelina Navarro EGFR-NON AF [place] 34 mL/min/1.73m2 Critically low >=60 [facility] Comment on above: Performed By: #### C MP, BNP ####[facility] Ervox[address]ubq[address] [place] [address]Dr. Emelina Navarro Globulin (S) [Mass/Vol] 4.2 g/dL Normal [facility] Comment on above: Performed By: #### C MP, BNP ####[facility] Lhbvzscsqn25[address] [place] [address]Dr. Emelina Navarro Glucose [Mass/Vol] 311 mg/dL Critically high 74-106 [facility] Comment on above: Performed By: #### C MP, BNP ####[facility] Ldjgixqfpr36[address] [place], [place] [address]Dr. Emelina Navarro Potassium [Moles/Vol] 3.9 mmol/L Normal 3.5-5.1 [facility] Comment on above: Performed By: #### C MP, BNP ####[facility] Ouggxzbkeg2883[address] [place], [place] [address]Dr. Emelina Navarro Protein [Mass/Vol] 7.5 g/dL Normal 6.4-8.2 [facility] Comment on above: Performed By: #### C MP, BNP ####[facility] Kvocovaveh115[address] [place], [place] [address]Dr. Emelina Navarro Sodium [Moles/Vol] 135 mmol/L Critically low 136-145 [facility] Comment on above: Performed By: #### C MP, BNP ####[facility] Bocekypceq5323[address] [place], [place] [address]Dr. Emelina Navarro Urea nitrogen [Mass/Vol] 57.0 mg/dL Critically high 7.0-18.0 [facility] Comment on above: Performed By: #### C MP, BNP ####[facility] Afzatxuvds[address] [place], [place] [address]Dr. Emelina Navarro Urea nitrogen/Creatinine [Mass ratio] 28.6 mg/mg Normal [facility] Comment on above: Performed By: #### C MP, BNP ####[facility] Vvcdwmowzo2727[address] [place], [place] [address]Dr. Emelina Navarro BNPon 01-09-2023 Natriuretic peptide B (Bld) [Mass/Vol] 9097.0 pg/mL Critically high <=900.0 [facility] Comment on above: Performed By: #### B HORTICULTURAL TECHNICAL OFFICER, CMP ####[facility] Locvdxmulx2066[address] [place], [place] [address]Dr. Emelina Navarro CBC AUTO DIFFon 01-09-2023 BASO # 0.0 103/ul Normal 0.0-0.1 [facility] Comment on above: Performed By: #### C BC ####[facility] [address]fs[address]kwkdod[address] [place] [phone]. Emelina Navarro Basophils/100 WBC (Bld) 0.2 % Normal 0.2-2.0 [facility] Comment on above: Performed By: #### C BC ####[facility] Nvmtrbczjq0693 [place] [phone]. Emelina Navarro EO # 0.2 103/ul Normal 0.0-0.7 [facility] Comment on above: Performed By: #### C BC ####[facility] Hkjebzefjz66[address] [place], [place] [address]Dr. Emelina Navarro Eosinophils/100 WBC (Bld) 2.1 % Normal 0.9-7.0 [facility] Comment on above: Performed By: #### C BC ####[facility] Jygltiovpa0610[address] [place], [place] [address]Dr. Emelina Navarro Erythrocyte distribution width (RBC) [Ratio] 17.1 % Critically high 11.0-15.0 [facility] Comment on above: Performed By: #### C BC ####[facility] Pjryribuhq1426[address] [place], [place] [address]Dr. Emelina Navarro Hematocrit (Bld) [Volume fraction] 40.5 % Critically low 42.0-54.0 [facility] Comment on above: Performed By: #### C BC ####[facility] Oivaxpwrga05[address] [place] [phone]. Emelina Navarro Hemoglobin (Bld) [Mass/Vol] 13.0 g/dL Critically low 14.0-18.0 [facility] Comment on above: Performed By: #### C BC ####[facility] Hockwoouhw[address] [place] [phone]. Emelina Navarro IG # 0.06 10e3/ul Critically high 0.00-0.03 [facility] Comment on above: Performed By: #### C BC ####[facility] Vkldwajzuv[address] [place], [place] [id number]. Emelina Navarro IG % 0.5 % Normal 0.0-0.5 [facility] Comment on above: Performed By: #### C BC ####[facility] Chcahkpvtg1284 [place], [place] [address]Du. Emelina Navarro LYMPH # 1.6 103/ul Normal 1.2-3.8 [facility] Comment on above: Performed By: #### C BC ####[facility] Mammzyfqlu3711 [place], [place] [address]Rl. Emelina Navarro Lymphocytes/100 WBC (Bld) 14.1 % Critically low 20.5-60.0 [facility] Comment on above: Performed By: #### C BC ####[facility] Yvfhlvuebr9914 [place] [phone]. Emelina Navarro MANUAL DIFF REQ NO Normal [facility] Comment on above: Performed By: #### C BC ####[facility] Ratkvxvbsu6632 [place] [phone]. Emelina Navarro MCH (RBC) [Entitic mass] 28.4 pg Normal 25.9-34.0 [facility] Comment on above: Performed By: #### C BC ####[facility] Nactdotblk5833 [place] [phone]. Emelina Navarro MCHC (RBC) [Mass/Vol] 32.1 g/dL Normal 29.9-35.2 [facility] Comment on above: Performed By: #### C BC ####[facility] Larpazxuua4594 [place] [phone]. Emelina Navarro MCV (RBC) [Entitic vol] 88.4 fL Normal 80.0-94.0 [facility] Comment on above: Performed By: #### C BC ####[facility] Bfqkzealxn3920 [place] [phone]. Emelina Navarro MONO # 0.9 103/ul Critically high 0.3-0.8 [facility] Comment on above: Performed By: #### C BC ####[facility] Ljynmecrsn5198 [place] [phone]. Emelina Navarro Monocytes/100 WBC (Bld) 8.0 % Normal 1.7-12.0 [facility] Comment on above: Performed By: #### C BC ####[facility] Ghzqnjduih6762 [place] [phone]. Emelina Navarro NEUT # 8.6 103/ul Critically high 1.4-6.5 [facility] Comment on above: Performed By: #### C BC ####[facility] Bmqgvrmxqm4043 [place] [phone]. Emelina Navarro Neutrophils/100 WBC (Bld) 75.1 % Critically high 43.0-75.0 [facility] Comment on above: Performed By: #### C BC ####[facility] Wlnrufgamt0892 [place] [phone]. Emelina Navarro Platelet mean volume (Bld) [Entitic vol] 11.2 fL Normal 9.5-13.5 [facility] Comment on above: Performed By: #### C BC ####[facility] Aslrdzqwzy4985 [place] [phone]. Emelina Navarro PLT 99 103/ul Critically low 150-450 [facility] Comment on above: Performed By: #### C BC ####[facility] Bgorlfkqhy7043 [place] [phone]. Emelina Navarro RBC 4.58 106/ul Critically low 4.70-6.10 [facility] Comment on above: Performed By: #### C BC ####[facility] Zmhusnpkjh4911 [place] [phone]. Emelina Navarro WBC 11.5 103/ul Critically high 4.0-11.0 [facility] Comment on above: Performed By: #### C BC ####[facility] Sgkrjksqhf2160 [place] [phone]. Emelina Navarro CT HEAD WO CONon 01-09-2023 CT HEAD WO CON Normal [facility] PROF 14(COMP METB)on 023 Albumin [Mass/Vol] 3.2 g/dL Critically low 3.4-5.0 [facility] Comment on above: Performed By: #### B HORTICULTURAL TECHNICAL OFFICER, CMP ####[facility] Rjperecjjh5906 [place] [address]Dr. Emelina Navarro Albumin/Globulin [Mass ratio] 0.8 {ratio} Normal [facility] Comment on above: Performed By: #### B HORTICULTURAL TECHNICAL OFFICER, CMP ####[facility] Pphfsujnyv1315 [place] [address]Dr. Emelina Navarro ALP [Catalytic activity/Vol] 150 U/L Critically high 46-116 [facility] Comment on above: Performed By: #### B HORTICULTURAL TECHNICAL OFFICER, CMP ####[facility] Uzrppfmttk9556 [place] [address]Dr. Emelina Navarro ALT [Catalytic activity/Vol] 27 U/L Normal 16-63 [facility] Comment on above: Performed By: #### B HORTICULTURAL TECHNICAL OFFICER, CMP ####[facility] Pehgiyfkzo914[address] [place], [place] [address]Dr. Emelina Navarro Anion gap [Moles/Vol] 9.7 mmol/L Normal [facility] Comment on above: Performed By: #### B HORTICULTURAL TECHNICAL OFFICER, CMP ####[facility] Vvvmwjhket5397[address] [place], [place] [address]Dr. Emelina Navarro AST [Catalytic activity/Vol] 29 U/L Normal 15-37 [facility] Comment on above: Performed By: #### B HORTICULTURAL TECHNICAL OFFICER, CMP ####[facility] Suacnjdxqh9307[address] [place], [place] [address]Dr. Emelina Navarro Bilirubin [Mass/Vol] 1.3 mg/dL Critically high 0.2-1.0 [facility] Comment on above: Performed By: #### B HORTICULTURAL TECHNICAL OFFICER, CMP ####[facility] Zbtpwcyhum2088 [place] [address]Dr. Emelina Navarro Calcium [Mass/Vol] 9.0 mg/dL Normal 8.5-10.1 [facility] Comment on above: Performed By: #### B HORTICULTURAL TECHNICAL OFFICER, CMP ####[facility] Gchozmiphc2022 [place] [address]Dr. Emelina Navarro Chloride [Moles/Vol] 93 mmol/L Critically low 98-107 [facility] Comment on above: Performed By: #### B HORTICULTURAL TECHNICAL OFFICER, CMP ####[facility] Vqzthixmkg1500[address] [place], [place] [address]Dr. Emelina Navarro CO2 [Moles/Vol] 33.6 mmol/L Critically high 21.0-32.0 [facility] Comment on above: Performed By: #### B HORTICULTURAL TECHNICAL OFFICER, CMP ####[facility] Cgxvecrxdk2066[address] [place], [place] [address]Dr. Emelina Navarro Creatinine [Mass/Vol] 1.75 mg/dL Critically high 0.70-1.30 [facility] Comment on above: Performed By: #### B HORTICULTURAL TECHNICAL OFFICER, CMP ####[facility] Hsaszjesko9254[address] [place], [place] [address]Dr. Emelina Navarro EGFR-AF [place] 47 mL/min/1.73m2 Critically low >=60 [facility] Comment on above: Performed By: #### B HORTICULTURAL TECHNICAL OFFICER, CMP ####[facility] Tvmqvkgadq1673[address] [place], [place] [address]Dr. Emelina Navarro EGFR-NON AF [place] 39 mL/min/1.73m2 Critically low >=60 [facility] Comment on above: Performed By: #### B HORTICULTURAL TECHNICAL OFFICER, CMP ####[facility] Yewvxbfcbg032299 [address] [place], [place] [address]Dr. Emelina Navarro Globulin (S) [Mass/Vol] 4.1 g/dL Normal [facility] Comment on above: Performed By: #### B HORTICULTURAL TECHNICAL OFFICER, CMP ####[facility] Jscbqbnult2923[address] [place], [place] [address]Dr. Emelina Navarro Glucose [Mass/Vol] 235 mg/dL Critically high 74-106 [facility] Comment on above: Performed By: #### B HORTICULTURAL TECHNICAL OFFICER, CMP ####[facility] Kcettsncvv1708[address] [place], [place] [address]Dr. Emelina Navarro Potassium [Moles/Vol] 3.3 mmol/L Critically low 3.5-5.1 [facility] Comment on above: Performed By: #### B HORTICULTURAL TECHNICAL OFFICER, CMP ####[facility] Qqjijgugye871999 [address] [place], [place] [address]Dr. Emelina Navarro Protein [Mass/Vol] 7.3 g/dL Normal 6.4-8.2 [facility] Comment on above: Performed By: #### B HORTICULTURAL TECHNICAL OFFICER, CMP ####[facility] Btilekrkfn832199 [address] [place], [place] [address]Dr. Emelina Navarro Sodium [Moles/Vol] 133 mmol/L Critically low 136-145 [facility] Comment on above: Performed By: #### B HORTICULTURAL TECHNICAL OFFICER, CMP ####[facility] Heyeeatxaf184099 [address] [place], [place] [address]Dr. Emelina Navarro Urea nitrogen [Mass/Vol] 50.0 mg/dL Critically high 7.0-18.0 [facility] Comment on above: Performed By: #### B HORTICULTURAL TECHNICAL OFFICER, CMP ####[facility] Nucuzwdlfz0247[address] [place], [place] [address]Dr. Emelina Rmaon Urea nitrogen/Creatinine [Mass ratio] 28.6 mg/mg Normal [facility] Comment on above: Performed By: #### B HORTICULTURAL TECHNICAL OFFICER, CMP ####[facility] Cbmmajylaj2465[address] [place], [place] [address]Dr. Emelina Ramon BNPon 01-08-2023 Natriuretic peptide B (Bld) [Mass/Vol] 8174.0 pg/mL Critically high <=900.0 [facility] Comment on above: Performed By: #### B HORTICULTURAL TECHNICAL OFFICER ####[facility] Psvcbqagat447399 [address] [place], [place] [address]Dr. Emelina Ramon CBC AUTO DIFFon 01-08-2023 BASO # 0.0 103/ul Normal 0.0-0.1 [facility] Comment on above: Performed By: #### C BC ####[facility] Szwhulihrv5516[address] [place], [place] [address]Dr. Emelina Ramon Basophils/100 WBC (Bld) 0.2 % Normal 0.2-2.0 [facility] Comment on above: Performed By: #### C BC ####[facility] Qywvpihwyj643699 [address] [place], [place] [address]Dr. Emelina Navarro EO # 0.2 103/ul Normal 0.0-0.7 [facility] Comment on above: Performed By: #### C BC ####[facility] Dnozzalzpr067[address] [place], [place] [address]Dr. Emelina Navarro Eosinophils/100 WBC (Bld) 1.7 % Normal 0.9-7.0 [facility] Comment on above: Performed By: #### C BC ####[facility] Ahhxfhtbvc5296[address] [place], [place] [address]DrWesley Navarro Erythrocyte distribution width (RBC) [Ratio] 17.4 % Critically high 11.0-15.0 [facility] Comment on above: Performed By: #### C BC ####[facility] Ulurehrgaw9295[address] [place], [place] [address]DrWesley Navarro Hematocrit (Bld) [Volume fraction] 40.8 % Critically low 42.0-54.0 [facility] Comment on above: Performed By: #### C BC ####[facility] Kpfoprdpas2775[address] [place], [place] [address]DrWesley Navarro Hemoglobin (Bld) [Mass/Vol] 13.3 g/dL Critically low 14.0-18.0 [facility] Comment on above: Performed By: #### C BC ####[facility] Mudhgwhbbj3116[address] [place], [place] [address]DrWesley Navarro IG # 0.05 10e3/ul Critically high 0.00-0.03 [facility] Comment on above: Performed By: #### C BC ####[facility] Icjjrcaucj541699 [address] [place], [place] [address]DrWesley Navarro IG % 0.4 % Normal 0.0-0.5 [facility] Comment on above: Performed By: #### C BC ####[facility] Ptypdphbxi7766[address] [place], [place] [address]DrWesley Navarro LYMPH # 1.7 103/ul Normal 1.2-3.8 [facility] Comment on above: Performed By: #### C BC ####[facility] Sgsrywphxn842499 [address] [place], [place] [address]DrWesley Navarro Lymphocytes/100 WBC (Bld) 12.5 % Critically low 20.5-60.0 [facility] Comment on above: Performed By: #### C BC ####[facility] Rnjiwpytgh2285[address] [place], [place] [address]DrWesley Navarro MANUAL DIFF REQ NO Normal [facility] Comment on above: Performed By: #### C BC ####[facility] Bjseqzvgwv9536 [place] [phone] Navarro MCH (RBC) [Entitic mass] 29.1 pg Normal 25.9-34.0 [facility] Comment on above: Performed By: #### C BC ####[facility] Qepjkoaypr490[address] [place], [place] [address]DrWesley Navarro MCHC (RBC) [Mass/Vol] 32.6 g/dL Normal 29.9-35.2 [facility] Comment on above: Performed By: #### C BC ####[facility] Sooylglliz3363[address] [place], [place] [address]DrWesley Navarro MCV (RBC) [Entitic vol] 89.3 fL Normal 80.0-94.0 [facility] Comment on above: Performed By: #### C BC ####[facility] Zriutfshhp980699 [address] [place], [place] [address]DrWesley Navarro MONO # 1.0 103/ul Critically high 0.3-0.8 [facility] Comment on above: Performed By: #### C BC ####[facility] Wimnskshif2922[address] [place], [place] [address]DrWesley Navarro Monocytes/100 WBC (Bld) 7.6 % Normal 1.7-12.0 [facility] Comment on above: Performed By: #### C BC ####[facility] Whwigsvaks8877[address] [place], [place] [address]DrWesley Navarro NEUT # 10.3 103/ul Critically high 1.4-6.5 [facility] Comment on above: Performed By: #### C BC ####[facility] Tqyspqeiyg763799 [address] [place], [place] [address]DrWesley Navarro Neutrophils/100 WBC (Bld) 77.6 % Critically high 43.0-75.0 [facility] Comment on above: Performed By: #### C BC ####[facility] Fsibyqkwoj2875[address] [place], [place] [address]DrWesley Navarro Platelet mean volume (Bld) [Entitic vol] 11.0 fL Normal 9.5-13.5 [facility] Comment on above: Performed By: #### C BC ####[facility] Mgiaofcevq5046 [place] [phone]. Emelina Navarro PLT 106 103/ul Critically low 150-450 [facility] Comment on above: Performed By: #### C BC ####[facility] Rmipxjixyc2514 [place] [phone]. Emelina Navarro RBC 4.57 106/ul Critically low 4.70-6.10 [facility] Comment on above: Performed By: #### C BC ####[facility] Mecobdtihg8536 [place] [phone]. Emelina Navarro WBC 13.3 103/ul Critically high 4.0-11.0 [facility] Comment on above: Performed By: #### C BC ####[facility] Oronwjoxeb1320 [place] [phone]. Emelina Navarro CULTURE URINEon 01-08-2023 CULTURE URINE Culture Observations : LIGHT GROWTH OF MIXED SKIN CEDRIC. NO POTENTIAL PATHOGENS SEEN. Normal [facility] Comment on above: Performed By: #### U RCX ####[facility] Fzsddjfoyr5045 [place] [address]Dr. Emelina Navarro ECHOCARDIO M/2D COMPLETEon 0 01-08-2023 ECHOCARDIO M/2D COMPLETE Normal [facility] PROCALCITONINon 01-08-2023 Procalcitonin 0.10 ng/mL Critically high 0.00-0.08 [facility] Comment on above: Result Comment: .A [...] are obtained. Performed By: #### P CTLC ####[facility] Vbucuuzijk299[address] [place], [place] [address]DrWesley Navarro PROF 14(COMP METB)on 023 Albumin [Mass/Vol] 3.3 g/dL Critically low 3.4-5.0 [facility] Comment on above: Performed By: #### C MP ####[facility] Mcafhclabv774199 [address] [place], [place] [address]Dr. Emelina Navarro Albumin/Globulin [Mass ratio] 0.8 {ratio} Normal [facility] Comment on above: Performed By: #### C MP ####[facility] Khlisslies672499 [address] [place], [place] [address]Dr. Emelina Navarro ALP [Catalytic activity/Vol] 140 U/L Critically high 46-116 [facility] Comment on above: Performed By: #### C MP ####[facility] Okrkofnezn144699 [address] [place], [place] [address]Dr. Emelina Navarro ALT [Catalytic activity/Vol] 22 U/L Normal 16-63 [facility] Comment on above: Performed By: #### C MP ####[facility] Tsmrskiysp813199 [address] [place], [place] [address]Dr. Emelina Navarro Anion gap [Moles/Vol] 13.1 mmol/L Normal [facility] Comment on above: Performed By: #### C MP ####[facility] Tqfovjztnu2923[address] [place], [place] [address]Dr. Emelina Navarro AST [Catalytic activity/Vol] 21 U/L Normal 15-37 [facility] Comment on above: Performed By: #### C MP ####[facility] Zplqhsmzii223599 [address] [place], [place] [address]Dr. Emelina Navarro Bilirubin [Mass/Vol] 1.3 mg/dL Critically high 0.2-1.0 [facility] Comment on above: Performed By: #### C MP ####[facility] Jpxvvdhlil780099 [address] [place], [place] [address]Dr. Awildanitza Ramon Calcium [Mass/Vol] 9.1 mg/dL Normal 8.5-10.1 [facility] Comment on above: Performed By: #### C MP ####[facility] Vogtsrclnz5635[address] [place], [place] [address]Dr. Emelina Navarro Chloride [Moles/Vol] 95 mmol/L Critically low 98-107 [facility] Comment on above: Performed By: #### C MP ####[facility] Mhzrzflpab811599 [address] [place], [place] [address]Dr. Emelina Navarro CO2 [Moles/Vol] 30.4 mmol/L Normal 21.0-32.0 [facility] Comment on above: Performed By: #### C MP ####[facility] Usxjzhwsys2027[address] [place], [place] [address]Dr. Emelina Navarro Creatinine [Mass/Vol] 1.67 mg/dL Critically high 0.70-1.30 [facility] Comment on above: Performed By: #### C MP ####[facility] Axjwuxiray978499 [address] [place], [place] [address]Dr. Emelina Navarro EGFR-AF [place] 50 mL/min/1.73m2 Critically low >=60 [facility] Comment on above: Performed By: #### C MP ####[facility] Lhrtstldrm8745[address] [place], [place] [address]DrWesley Navarro EGFR-NON AF [place] 41 mL/min/1.73m2 Critically low >=60 [facility] Comment on above: Performed By: #### C MP ####[facility] Fggppbzmzd659099 [address] [place], [place] [address]DrWesley Navarro Globulin (S) [Mass/Vol] 3.9 g/dL Normal [facility] Comment on above: Performed By: #### C MP ####[facility] Nyeiwuuvzu095[address] [place], [place] [address]DrWesley Navarro Glucose [Mass/Vol] 198 mg/dL Critically high 74-106 [facility] Comment on above: Performed By: #### C MP ####[facility] Vetknrkrry3882 [place] [address]Dr. Emelina Navarro Potassium [Moles/Vol] 3.5 mmol/L Normal 3.5-5.1 [facility] Comment on above: Performed By: #### C MP ####[facility] Nwkhviabdq8873 [place] [address]Dr. Emelina Navarro Protein [Mass/Vol] 7.2 g/dL Normal 6.4-8.2 [facility] Comment on above: Performed By: #### C MP ####[facility] Llsogxwajr8319 [place] [address]Dr. Emelina Navarro Sodium [Moles/Vol] 135 mmol/L Critically low 136-145 [facility] Comment on above: Performed By: #### C MP ####[facility] Xjzhtvipbi578[address] [place], [place] [address]Dr. Emelina Navarro Urea nitrogen [Mass/Vol] 42.0 mg/dL Critically high 7.0-18.0 [facility] Comment on above: Performed By: #### C MP ####[facility] Edasbnrhvn252[address] [place], [place] [address]Dr. Emelina Navarro Urea nitrogen/Creatinine [Mass ratio] 25.1 mg/mg Normal [facility] Comment on above: Performed By: #### C MP ####[facility] Alclutzjum5821 [place] [address]DrWesley Navarro PROTIMEon 01-08-2023 INR Coag (PPP) [Relative time] 2.59 {INR} Normal [facility] Comment on above: Performed By: #### P T ####[facility] Sjunxiecjy486[address] [place], [place] [address]DrWesley Navarro INR GUIDELINES SEE BELOW Normal [facility] Comment on above: Result Comment: WENDY RED INR: 2.0 - 3.0 CONDITIONS NOT LISTED BELOW 2.5 - 3.5 FOR PROSTHETIC HEART VALVE REPLACEMENT 2.5 - 3.5 RECURRENT THROMBOSIS Performed By: #### P T ####[facility] Jrpbwioqot4722 [place] [address]Dr. Emelina Navarro PT Coag (PPP) [Time] 26.0 s Critically high 9.0-11.6 [facility] Comment on above: Performed By: #### P T ####[facility] Basxtgrwnd8586[address] [place], [place] [address]Dr. Emelina Navarro CBC AUTO DIFFon 01-07-2023 BASO # 0.0 103/ul Normal 0.0-0.1 [facility] Comment on above: Performed By: #### C BC ####[facility] Agszealqmi833499 [address] [place], [place] [address]Dr. Emelina Navarro Basophils/100 WBC (Bld) 0.3 % Normal 0.2-2.0 [facility] Comment on above: Performed By: #### C BC ####[facility] Dwlnqvyobx7322[address] [place], [place] [address]Dr. Emelina Navarro EO # 0.3 103/ul Normal 0.0-0.7 [facility] Comment on above: Performed By: #### C BC ####[facility] Ogamxvscze9413[address] [place], [place] [address]Dr. Emelina Navarro Eosinophils/100 WBC (Bld) 2.3 % Normal 0.9-7.0 [facility] Comment on above: Performed By: #### C BC ####[facility] Gkghpuwqbx4288[address] [place], [place] [address]Dr. Emelina Navarro Erythrocyte distribution width (RBC) [Ratio] 17.8 % Critically high 11.0-15.0 [facility] [facility] Comment on above: Performed By: #### C BC ####[facility] Umxpkfmzhr[address] [place], [place] [address]DrWesley Navarro Hematocrit (Bld) [Volume fraction] 43.3 % Normal 42.0-54.0 [facility] Comment on above: Performed By: #### C BC ####[facility] Pmrqcudqji28[address] [place], [place] [address]Dr. Emelina Navarro Hemoglobin (Bld) [Mass/Vol] 13.6 g/dL Critically low 14.0-18.0 [facility] Comment on above: Performed By: #### C BC ####[facility] Fwjjlwedtn7411 [place] [address]DrWesley Navarro IG # 0.05 10e3/ul Critically high 0.00-0.03 [facility] Comment on above: Performed By: #### C BC ####[facility] Jsugkycwus4833 [place] [address]DrWesley Navarro IG % 0.4 % Normal 0.0-0.5 [facility] Comment on above: Performed By: #### C BC ####[facility] Ptsdydlnst54[address] [place], [place] [address]DrWesley Navarro LYMPH # 1.8 103/ul Normal 1.2-3.8 [facility] Comment on above: Performed By: #### C BC ####[facility] Zwchpjyqso7325 [place] [address]DrWesley Navarro Lymphocytes/100 WBC (Bld) 12.8 % Critically low 20.5-60.0 [facility] Comment on above: Performed By: #### C BC ####[facility] Hzytnzvfeg1024 [place] [address]DrWesley Navarro MANUAL DIFF REQ NO Normal [facility] Comment on above: Performed By: #### C BC ####[facility] Dymaudnnck6142 [place] [address]DrWesley Navarro MCH (RBC) [Entitic mass] 28.4 pg Normal 25.9-34.0 [facility] Comment on above: Performed By: #### C BC ####[facility] Vjdpggcrbh8317 [place] [address]DrWesley Navarro MCHC (RBC) [Mass/Vol] 31.4 g/dL Normal 29.9-35.2 [facility] Comment on above: Performed By: #### C BC ####[facility] Lgxczzvkoa0462 [place] [address]DrWesley Navarro MCV (RBC) [Entitic vol] 90.4 fL Normal 80.0-94.0 [facility] Comment on above: Performed By: #### C BC ####[facility] Knmdijtsic3020 [place] [id number] Navarro MONO # 0.9 103/ul Critically high 0.3-0.8 [facility] Comment on above: Performed By: #### C BC ####[facility] Cvyylksykh3169 [place] [phone] Navarro Monocytes/100 WBC (Bld) 6.8 % Normal 1.7-12.0 [facility] Comment on above: Performed By: #### C BC ####[facility] Gaymgznlmh9206 [place] [address]Dr. Emelina Navarro NEUT # 10.7 103/ul Critically high 1.4-6.5 [facility] Comment on above: Performed By: #### C BC ####[facility] Pgkeguzcwv7191 [place] [address]DrWesley Navarro Neutrophils/100 WBC (Bld) 77.4 % Critically high 43.0-75.0 [facility] Comment on above: Performed By: #### C BC ####[facility] Yaehowmfjm8656 [place] [phone] Navarro Platelet mean volume (Bld) [Entitic vol] 11.5 fL Normal 9.5-13.5 [facility] Comment on above: Performed By: #### C BC ####[facility] Vniqpqqpzn6085 [place] [phone]. Emelina Navarro PLT 114 103/ul Critically low 150-450 [facility] Comment on above: Performed By: #### C BC ####[facility] Gicwcvjsaf4921 [place] [phone] Navarro RBC 4.79 106/ul Normal 4.70-6.10 [facility] Comment on above: Performed By: #### C BC ####[facility] Hsckgqqcju9637 [place] [phone] Navarro WBC 13.8 103/ul Critically high 4.0-11.0 [facility] Comment on above: Performed By: #### C BC ####[facility] Jgchlsitbb7468 [place] [address]Dr. Emelina Navarro PROF 14(COMP METB)on 023 Albumin [Mass/Vol] 3.4 g/dL Normal 3.4-5.0 [facility] Comment on above: Performed By: #### C MP ####[facility] Ieemmdgirb1051 [place] [address]Dr. Emelina Navarro Albumin/Globulin [Mass ratio] 0.9 {ratio} Normal [facility] Comment on above: Performed By: #### C MP ####[facility] Nynxmwccuu4385 [place] [address]Dr. Emelina Navarro ALP [Catalytic activity/Vol] 130 U/L Critically high 46-116 [facility] Comment on above: Performed By: #### C MP ####[facility] Zgsypewobl5800 [place] [address]Dr. Emelina Navarro ALT [Catalytic activity/Vol] 24 U/L Normal 16-63 [facility] Comment on above: Performed By: #### C MP ####[facility] Ogjgwzeshf9115[address] [place], [place] [address]Dr. Emelina Navarro Anion gap [Moles/Vol] 12.2 mmol/L Normal [facility] Comment on above: Performed By: #### C MP ####[facility] Rfewhgvzwu3297 [place] [address]Dr. Emelina Navarro AST [Catalytic activity/Vol] 22 U/L Normal 15-37 [facility] Comment on above: Performed By: #### C MP ####[facility] Puvcckkhjg3448 [place] [address]Dr. Emelina Navarro Bilirubin [Mass/Vol] 1.1 mg/dL Critically high 0.2-1.0 [facility] Comment on above: Performed By: #### C MP ####[facility] Lufvkyalsk8361 [place] [address]Dr. Emelina Navarro Calcium [Mass/Vol] 9.0 mg/dL Normal 8.5-10.1 [facility] Comment on above: Performed By: #### C MP ####[facility] Mcwpvnsejr1768 [place] [address]Dr. Emelina Navarro Chloride [Moles/Vol] 99 mmol/L Normal 98-107 [facility] Comment on above: Performed By: #### C MP ####[facility] Atdjqbtwke9932 [place] [address]Dr. Emelina Navarro CO2 [Moles/Vol] 30.5 mmol/L Normal 21.0-32.0 [facility] Comment on above: Performed By: #### C MP ####[facility] Uvvqwcctdm8055[address] [place], [place] [address]Dr. Emelina Navarro Creatinine [Mass/Vol] 1.58 mg/dL Critically high 0.70-1.30 [facility] Comment on above: Performed By: #### C MP ####[facility] Dsvhslgfid8540[address] [place], [place] [address]Dr. Emelina Navarro EGFR-AF [place] 53 mL/min/1.73m2 Critically low >=60 [facility] Comment on above: Performed By: #### C MP ####[facility] Zeudqfbaui3495[address] [place], [place] [address]Dr. Awildanitza Ramon EGFR-NON AF [place] 44 mL/min/1.73m2 Critically low >=60 [facility] Comment on above: Performed By: #### C MP ####[facility] Lwblbrnnyt8582[address] [place], [place] [address]Dr. Emelina Navarro Globulin (S) [Mass/Vol] 3.9 g/dL Normal [facility] Comment on above: Performed By: #### C MP ####[facility] Hzwftijugj323399 [address] [place], [place] [address]Dr. Emelina Navarro Glucose [Mass/Vol] 195 mg/dL Critically high 74-106 [facility] Comment on above: Performed By: #### C MP ####[facility] Lsmqgvmtge478399 [address] [place], [place] [address]Dr. Emelina Navarro Potassium [Moles/Vol] 3.7 mmol/L Normal 3.5-5.1 [facility] Comment on above: Performed By: #### C MP ####[facility] Pxipxougju983[address] [place], [place] [address]Dr. Emelina Navarro Protein [Mass/Vol] 7.3 g/dL Normal 6.4-8.2 [facility] Comment on above: Performed By: #### C MP ####[facility] Iofqfoekwv3997[address] [place], [place] [address]Dr. Emelina Navarro Sodium [Moles/Vol] 138 mmol/L Normal 136-145 [facility] Comment on above: Performed By: #### C MP ####[facility] Ybaqgxcowi191699 [address] [place], [place] [address]Dr. Emelina Navarro Urea nitrogen [Mass/Vol] 36.0 mg/dL Critically high 7.0-18.0 [facility] Comment on above: Performed By: #### C MP ####[facility] Bymdhifmbz921799 [address] [place], [place] [address]Dr. Emelina Navarro Urea nitrogen/Creatinine [Mass ratio] 22.8 mg/mg Normal [facility] Comment on above: Performed By: #### C MP ####[facility] Haqknccsrw8786[address] [place], [place] [address]Dr. Emelina Navarro CBC AUTO DIFFon 01-06-2023 BASO # 0.0 103/ul Normal 0.0-0.1 [facility] Comment on above: Performed By: #### C BC ####[facility] Xsuikepijx432199 [address] [place], [place] [address]Dr. Emelina Navarro Basophils/100 WBC (Bld) 0.3 % Normal 0.2-2.0 [facility] Comment on above: Performed By: #### C BC ####[facility] Xryuhkdvlz006699 [address] [place], [place] [address]Dr. Emelina Navarro EO # 0.3 103/ul Normal 0.0-0.7 [facility] Comment on above: Performed By: #### C BC ####[facility] Ssqtqfzsic7866[address] [place], [place] [address]Dr. Emelina Navarro Eosinophils/100 WBC (Bld) 2.2 % Normal 0.9-7.0 [facility] Comment on above: Performed By: #### C BC ####[facility] Tgoujpiyea8764 [place] [address]Dr. Emelina Navarro Erythrocyte distribution width (RBC) [Ratio] 17.9 % Critically high 11.0-15.0 [facility] Comment on above: Performed By: #### C BC ####[facility] Jjwltqotnt735099 [address] [place], [place] [address]Dr. Emelina Navarro Hematocrit (Bld) [Volume fraction] 40.9 % Critically low 42.0-54.0 [facility] Comment on above: Performed By: #### C BC ####[facility] Yiabungnoa054799 [address] [place], [place] [address]Dr. Emelina Navarro Hemoglobin (Bld) [Mass/Vol] 12.9 g/dL Critically low 14.0-18.0 [facility] Comment on above: Performed By: #### C BC ####[facility] Iffbesqdfz647199 [address] [place], [place] [address]Dr. Emelina Navarro IG # 0.04 10e3/ul Critically high 0.00-0.03 [facility] Comment on above: Performed By: #### C BC ####[facility] Dwysevdnuz9[address]399 [address] [place], [place] [address]Dr. Emelina Navarro IG % 0.3 % Normal 0.0-0.5 [facility] Comment on above: Performed By: #### C BC ####[facility] Sslmsmvkuh011699 [address] [place], [place] [address]Dr. Emelina Navarro LYMPH # 2.2 103/ul Normal 1.2-3.8 [facility] Comment on above: Performed By: #### C BC ####[facility] Enbrywjrru847299 [address] [place], [place] [address]Dr. Emelina Navarro Lymphocytes/100 WBC (Bld) 17.3 % Critically low 20.5-60.0 [facility] Comment on above: Performed By: #### C BC ####[facility] Xlurxfjeei545599 [address] [place], [place] [address]Dr. Awildanitza Navarro MANUAL DIFF REQ NO Normal [facility] Comment on above: Performed By: #### C BC ####[facility] Jeqvorokhx6380 [place] [address]Dr. Emelina Navarro MCH (RBC) [Entitic mass] 28.5 pg Normal 25.9-34.0 [facility] Comment on above: Performed By: #### C BC ####[facility] Jfahdgqocy950799 [address] [place], [place] [address]Dr. Emelina Ramon MCHC (RBC) [Mass/Vol] 31.5 g/dL Normal 29.9-35.2 [facility] Comment on above: Performed By: #### C BC ####[facility] Bfzibmovij176699 [address] [place], [place] [address]Dr. Emelina Ramon MCV (RBC) [Entitic vol] 90.3 fL Normal 80.0-94.0 [facility] Comment on above: Performed By: #### C BC ####[facility] Bnqvcfafsx6415[address] [place], [place] [address]Dr. Emelina Ramon MONO # 0.9 103/ul Critically high 0.3-0.8 [facility] Comment on above: Performed By: #### C BC ####[facility] Lqvynxqjml5595[address] [place], [place] [address]Dr. Awildanitza Navarro Monocytes/100 WBC (Bld) 7.5 % Normal 1.7-12.0 [facility] Comment on above: Performed By: #### C BC ####[facility] Uixzzbauxh350[address] [place], [place] [address]Dr. Awildanitza Ramon NEUT # 9.1 103/ul Critically high 1.4-6.5 [facility] Comment on above: Performed By: #### C BC ####[facility] Lfjkovaawu9568[address] [place], [place] [address]Dr. Emelina Navarro Neutrophils/100 WBC (Bld) 72.4 % Normal 43.0-75.0 [facility] Comment on above: Performed By: #### C BC ####[facility] Ivyugsmlts364[address] [place], [place] [address]Dr. Awildanitza Ramon Platelet mean volume (Bld) [Entitic vol] 11.3 fL Normal 9.5-13.5 [facility] Comment on above: Performed By: #### C BC ####[facility] Bejglaqepp9693 [place] [address]Dr. Emelina Navarro PLT 119 103/ul Critically low 150-450 [facility] Comment on above: Performed By: #### C BC ####[facility] Lfcxcvvcsz0158 [place] [address]Dr. Awildanitza Ramon RBC 4.53 106/ul Critically low 4.70-6.10 [facility] Comment on above: Performed By: #### C BC ####[facility] Bpjgptjiga6780 [place] [address]Dr. Emelina Navarro WBC 12.6 103/ul Critically high 4.0-11.0 [facility] Comment on above: Performed By: #### C BC ####[facility] Ppwgkbukgc4394 [place] [address]Dr. Emelina Navarro PROF 14(COMP METB)on 023 Albumin [Mass/Vol] 3.1 g/dL Critically low 3.4-5.0 [facility] Comment on above: Performed By: #### C MP ####[facility] Ibikmkmrvk0433 [place] [address]Dr. Emelina Navarro Albumin/Globulin [Mass ratio] 1.0 {ratio} Normal [facility] Comment on above: Performed By: #### C MP ####[facility] Iqfyfamvkc5599 [place] [address]Dr. Emelina Navarro ALP [Catalytic activity/Vol] 114 U/L Normal 46-116 [facility] Comment on above: Performed By: #### C MP ####[facility] Nwhefnnupp5189 [place] [address]Dr. Emelina Navarro ALT [Catalytic activity/Vol] 23 U/L Normal 16-63 [facility] Comment on above: Performed By: #### C MP ####[facility] Aikxbyuhvd0707 [place] [address]Dr. Emelina Navarro Anion gap [Moles/Vol] 13.5 mmol/L Normal [facility] Comment on above: Performed By: #### C MP ####[facility] Kbklmwkudx6516 [place] [address]Dr. Emelina Navarro AST [Catalytic activity/Vol] 24 U/L Normal 15-37 [facility] Comment on above: Performed By: #### C MP ####[facility] Hncciczumi0566 [place] [address]Dr. Emelina Ramon Bilirubin [Mass/Vol] 1.0 mg/dL Normal 0.2-1.0 [facility] Comment on above: Performed By: #### C MP ####[facility] Hqujzeclre0421 [place] [address]Dr. Emelina Navarro Calcium [Mass/Vol] 8.5 mg/dL Normal 8.5-10.1 [facility] Comment on above: Performed By: #### C MP ####[facility] Rlqmjodmdn718899 [address] [place], [place] [address]Dr. Emelina Navarro Chloride [Moles/Vol] 102 mmol/L Normal 98-107 [facility] Comment on above: Performed By: #### C MP ####[facility] Bruoetwbfz0104 [place] [address]Dr. Awildanitza Ramon CO2 [Moles/Vol] 28.2 mmol/L Normal 21.0-32.0 [facility] Comment on above: Performed By: #### C MP ####[facility] Mgpcwnlhnz4035 [place] [address]Dr. Awildanitza Ramon Creatinine [Mass/Vol] 1.42 mg/dL Critically high 0.70-1.30 [facility] Comment on above: Performed By: #### C MP ####[facility] Lbpmsqwccu0873 [place] [address]Dr. Awildanitza Ramon EGFR-AF [place] 60 mL/min/1.73m2 Normal >=60 [facility] Comment on above: Performed By: #### C MP ####[facility] Byzoljnxix8817[address] [place], [place] [address]Dr. Emelina Ramon EGFR-NON AF [place] 50 mL/min/1.73m2 Critically low >=60 [facility] Comment on above: Performed By: #### C MP ####[facility] Exemgfwyaz792599 [address] [place], [place] [address]Dr. Emelina Navarro Globulin (S) [Mass/Vol] 3.1 g/dL Normal [facility] Comment on above: Performed By: #### C MP ####[facility] Hsjlinyohs6532[address] [place], [place] [address]Dr. Emelina Ramon Glucose [Mass/Vol] 121 mg/dL Critically high 74-106 [facility] Comment on above: Performed By: #### C MP ####[facility] Gurzjsbbac433799 [address] [place], [place] [address]Dr. Emelina Navarro Potassium [Moles/Vol] 3.7 mmol/L Normal 3.5-5.1 [facility] Comment on above: Performed By: #### C MP ####[facility] Vbmkpqyzot268199 [address] [place], [place] [address]Dr. Emelina Ramon Protein [Mass/Vol] 6.2 g/dL Critically low 6.4-8.2 [facility] Comment on above: Performed By: #### C MP ####[facility] Wxeutuaqwl436599 [address] [place], [place] [address]Dr. Awildanitza Navarro Sodium [Moles/Vol] 140 mmol/L Normal 136-145 [facility] Comment on above: Performed By: #### C MP ####[facility] Tvsumenfno691399 [address] [place], [place] [address]Dr. Awildanitza Ramon Urea nitrogen [Mass/Vol] 33.0 mg/dL Critically high 7.0-18.0 [facility] Comment on above: Performed By: #### C MP ####[facility] Dvgnaxjiah283499 [address] [place], [place] [address]Dr. Emelina Navarro Urea nitrogen/Creatinine [Mass ratio] 23.2 mg/mg Normal [facility] Comment on above: Performed By: #### C MP ####[facility] Rrjlzkmufr2464[address] [place], [place] [address]Dr. Emelina Navarro BNPon 01-05-2023 Natriuretic peptide B (Bld) [Mass/Vol] 7350.0 pg/mL Critically high <=900.0 [facility] Comment on above: Performed By: #### B HORTICULTURAL TECHNICAL OFFICER, BMP, HSTROPN ####[facility] Hrewtuqljn0231 [place] [address]Dr. Emelina Navarro CBC AUTO DIFFon 01-05-2023 BASO # 0.0 103/ul Normal 0.0-0.1 [facility] Comment on above: Performed By: #### C BC ####[facility] Scrrokdlne255099 [address] [place], [place] [address]Dr. Emelina Navarro Basophils/100 WBC (Bld) 0.3 % Normal 0.2-2.0 [facility] Comment on above: Performed By: #### C BC ####[facility] Bvcveqklsr316199 [address] [place], [place] [address]Dr. Emelina Navarro EO # 0.3 103/ul Normal 0.0-0.7 [facility] Comment on above: Performed By: #### C BC ####[facility] Lnioughfzi8422[address] [place], [place] [address]Dr. Emelina Navarro Eosinophils/100 WBC (Bld) 1.9 % Normal 0.9-7.0 [facility] Comment on above: Performed By: #### C BC ####[facility] Fmgklnamuq659199 [address] [place], [place] [address]Dr. Emelina Navarro Erythrocyte distribution width (RBC) [Ratio] 17.7 % Critically high 11.0-15.0 [facility] Comment on above: Performed By: #### C BC ####[facility] Jxrxjntfcp6801[address] [place], [place] [address]Dr. Emelina Navarro Hematocrit (Bld) [Volume fraction] 42.9 % Normal 42.0-54.0 [facility] Comment on above: Performed By: #### C BC ####[facility] Hmnylgqnna039[address] [place], [place] [address]Dr. Emelina Navarro Hemoglobin (Bld) [Mass/Vol] 13.8 g/dL Critically low 14.0-18.0 [facility] Comment on above: Performed By: #### C BC ####[facility] Isbrlwzint7222 [place] [address]Dr. Awildanitza Ramon IG # 0.07 10e3/ul Critically high 0.00-0.03 [facility] Comment on above: Performed By: #### C BC ####[facility] Augimbfyjx8961 [place] [address]Dr. Emelina Navarro IG % 0.4 % Normal 0.0-0.5 [facility] Comment on above: Performed By: #### C BC ####[facility] Idgnxyyjrh0079 [place] [address]Dr. Emelina Navarro LYMPH # 1.8 103/ul Normal 1.2-3.8 [facility] Comment on above: Performed By: #### C BC ####[facility] Ctrkjoceja2855 [place] [address]Dr. Emelina Navarro Lymphocytes/100 WBC (Bld) 11.6 % Critically low 20.5-60.0 [facility] Comment on above: Performed By: #### C BC ####[facility] Nxsotvyddx9923 [place] [address]Dr. Emelina Navarro MANUAL DIFF REQ NO Normal [facility] Comment on above: Performed By: #### C BC ####[facility] Autkucuopd1889 [place] [address]Dr. Emelina Navarro MCH (RBC) [Entitic mass] 28.5 pg Normal 25.9-34.0 [facility] Comment on above: Performed By: #### C BC ####[facility] Uazvpfybrq8129 [place] [address]Dr. Awildanitza Navarro MCHC (RBC) [Mass/Vol] 32.2 g/dL Normal 29.9-35.2 [facility] Comment on above: Performed By: #### C BC ####[facility] Urnymoicdt9378 [place] [address]Dr. Emelina Navarro MCV (RBC) [Entitic vol] 88.5 fL Normal 80.0-94.0 [facility] Comment on above: Performed By: #### C BC ####[facility] Bqtvfkzrmp5288 [place] [phone]. Emelina Navarro MONO # 1.1 103/ul Critically high 0.3-0.8 [facility] Comment on above: Performed By: #### C BC ####[facility] Kbvurcjwqv4310 [place] [phone]. Emelina Navarro Monocytes/100 WBC (Bld) 6.9 % Normal 1.7-12.0 [facility] Comment on above: Performed By: #### C BC ####[facility] Ktfknjjcze4804 [place] [phone]. Emelina Navarro NEUT # 12.4 103/ul Critically high 1.4-6.5 [facility] Comment on above: Performed By: #### C BC ####[facility] Eaihpwoupb2953 [place] [phone]. Emelina Navarro Neutrophils/100 WBC (Bld) 78.9 % Critically high 43.0-75.0 [facility] Comment on above: Performed By: #### C BC ####[facility] Nkrlzbdnat6835 [place] [phone]. Emelina Navarro Platelet mean volume (Bld) [Entitic vol] 11.5 fL Normal 9.5-13.5 [facility] Comment on above: Performed By: #### C BC ####[facility] Fbnazwzmop6489 [place] [phone]. Emelina Navarro PLT 142 103/ul Critically low 150-450 [facility] Comment on above: Performed By: #### C BC ####[facility] Bqspwcmqke5956 [place] [phone]. Emelina Navarro RBC 4.85 106/ul Normal 4.70-6.10 [facility] Comment on above: Performed By: #### C BC ####[facility] Jvgkjtwxte2478 [place] [phone]. Emelina Ramon WBC 15.8 103/ul Critically high 4.0-11.0 [facility] Comment on above: Performed By: #### C BC ####[facility] Iqojgwmzkd5941 [place] [phone]. Emelina Navarro CULTURE BLOODon 01-05-2023 Microscopic examination of blood, culture Culture Observations: NO GROWTH AT 5 DAYS. Normal [facility] Comment on above: Performed By: #### B LDCX2 ####[facility] Ntmjtjglpi3750 [place] [phone]. Emelina Navarro Microscopic examination of blood, culture Culture Observations: NO GROWTH AT 5 DAYS. Normal [facility] Comment on above: Performed By: #### B LDCX1 ####[facility] Nnffcqxssr0277 [place] [address]Dr. Emelina Navarro Covid-19 PCR (CVDTB)on 12-20 SARS-CoV-2 (COVID-19) RNA RADHA+probe Ql (Unsp spec) Not detected Normal NOT DETECTED [facility] Comment on above: Result Comment: [...] for this test is supported by the [place] [employer] and [employer]'s declaration that [...] be used). Performed By: #### C VDTBH ####[facility] Fpibhhratx2030 [place] [phone]. Emelina Navarro DIGOXINon 01-05-2023 DIG 0.8 ng/mL Critically low 0.9-2.0 [facility] Comment on above: Performed By: #### D IG ####[facility] Snhpqzvdrg719[address] [place], [place] [address]Dr. Emelina Navarro PROF CHEM 8 (BAS METB)on Anion gap [Moles/Vol] 12.7 mmol/L Normal [facility] Comment on above: Performed By: #### B HORTICULTURAL TECHNICAL OFFICER, BMP, HSTROPN ####[facility] Bimohibdfb746[address] [place], [place] [address]Dr. Emelina Navarro Calcium [Mass/Vol] 8.8 mg/dL Normal 8.5-10.1 [facility] Comment on above: Performed By: #### B HORTICULTURAL TECHNICAL OFFICER, BMP, HSTROPN ####[facility] Wamdjqxihp1076[address] [place], [place] [address]Dr. Emelina Navarro Chloride [Moles/Vol] 99 mmol/L Normal 98-107 [facility] Comment on above: Performed By: #### B HORTICULTURAL TECHNICAL OFFICER, BMP, HSTROPN ####[facility] Bivxjimzyb1776[address] [place], [place] [address]Dr. Emelina Navarro CO2 [Moles/Vol] 28.2 mmol/L Normal 21.0-32.0 [facility] Comment on above: Performed By: #### B HORTICULTURAL TECHNICAL OFFICER, BMP, HSTROPN ####[facility] [address]suvzztoq[address] [place], [place] [address]Dr. Emelina Navarro Creatinine [Mass/Vol] 1.64 mg/dL Critically high 0.70-1.30 [facility] Comment on above: Performed By: #### B HORTICULTURAL TECHNICAL OFFICER, BMP, HSTROPN ####[facility] Lvjibsqw[address] [place], [place] [address]Dr. Emelina Navarro EGFR-AF [place] 51 mL/min/1.73m2 Critically low >=60 [facility] Comment on above: Performed By: #### B HORTICULTURAL TECHNICAL OFFICER, BMP, HSTROPN ####[facility] Epqwhyeobb02[address] [place], [place] [address]Dr. Emelina Navarro EGFR-NON AF [place] 42 mL/min/1.73m2 Critically low >=60 [facility] Comment on above: Performed By: #### B HORTICULTURAL TECHNICAL OFFICER, BMP, HSTROPN ####[facility] [address] [place] [address]Dr. Awildanitza Navarro Glucose [Mass/Vol] 203 mg/dL Critically high 74-106 [facility] Comment on above: Performed By: #### B HORTICULTURAL TECHNICAL OFFICER, BMP, HSTROPN ####[facility] [address] [place] [address]Dr. Emelina Navarro Potassium [Moles/Vol] 3.9 mmol/L Normal 3.5-5.1 [facility] Comment on above: Performed By: #### B HORTICULTURAL TECHNICAL OFFICER, BMP, HSTROPN ####[facility] Pin[address]nzqwn[address] [place] [address]Dr. Awildanitza Navarro Sodium [Moles/Vol] 136 mmol/L Normal 136-145 [facility] Comment on above: Performed By: #### B HORTICULTURAL TECHNICAL OFFICER, BMP, HSTROPN ####[facility] [address] [place] [address]Dr. Emelina Navarro Urea nitrogen [Mass/Vol] 32.0 mg/dL Critically high 7.0-18.0 [facility] Comment on above: Performed By: #### B HORTICULTURAL TECHNICAL OFFICER, BMP, HSTROPN ####[facility] Cpsxukzsv[address] [place], [place] [address]Dr. Emelina Navarro Urea nitrogen/Creatinine [Mass ratio] 19.5 mg/mg Normal [facility] Comment on above: Performed By: #### B HORTICULTURAL TECHNICAL OFFICER, BMP, HSTROPN ####[facility] Twkygvcgqm[address] [place], [place] [address]Dr. Emelina Navarro PROTIMEon 01-05-2023 INR Coag (PPP) [Relative time] 2.53 {INR} Normal [facility] Comment on above: Performed By: #### P T, PTT ####[facility] Cqpexttrqa[address] [place], [place] [address]Dr. Emelina Navarro INR GUIDELINES SEE BELOW Normal [facility] Comment on above: Result Comment: WENDY RED INR: 2.0 - 3.0 CONDITIONS NOT LISTED BELOW 2.5 - 3.5 FOR PROSTHETIC HEART VALVE REPLACEMENT 2.5 - 3.5 RECURRENT THROMBOSIS Performed By: #### P T, PTT ####[facility] [address] [place] [address]Dr. Emelina Navarro PT Coag (PPP) [Time] 25.4 s Critically high 9.0-11.6 [facility] Comment on above: Performed By: #### P T, PTT ####[facility] Odib[address]oygzn[address] [place] [address]Dr. Emelina Navarro PTTon 01-05-2023 aPTT Coag (Bld) [Time] 37.7 s Critically high 22.3-36.2 [facility] Comment on above: Performed By: #### P T, PTT ####[facility] Qvssbysxcj60[address] [place], [place] [address]Dr. Emelina Navarro TROPONIN, HIGH SENSITIVITYon 01-05-2023 HSTROP 52.4 pg/mL Normal 4.0-76.1 [facility] Comment on above: Result Comment: CUT- OFF POINTS HAVE BEEN ESTABLISHED BASED ON THE FOURTH UNIVERSAL DEFINITIONS OF MYOCARDIALINFARCTION. THE UPPER REFERENCE LIMIT (URL) OF TROPONIN, DEFINED THE 99TH PERCENTILE OFcTnI DISTRIBUTION IN A REFERENCE POPULATION, HAS BEEN CONFIRMED THE DECISION THRESHOLDFOR IA DIAGNOSIS. Performed By: #### B HORTICULTURAL TECHNICAL OFFICER, BMP, HSTROPN ####[facility] Xswpyixqth39[address] [place], [place] [address]Dr. Emelina Navarro XR CHEST 1 Von 01-05-2023 XR CHEST 1 V Normal [facility] BNPon 01-02-2023 Natriuretic peptide B (Bld) [Mass/Vol] 5653.0 pg/mL Critically high <=900.0 [facility] Comment on above: Performed By: #### B HORTICULTURAL TECHNICAL OFFICER, BMP ####[facility] Jkojowjsuf[address] [place], [place] [address]Dr. Emelina Navarro CBC AUTO DIFFon 01-02-2023 BASO # 0.0 103/ul Normal 0.0-0.1 [facility] Comment on above: Performed By: #### C BC ####[facility] Chtlkxfhyx4874[address] [place], [place] [address]Dr. Emelina Navarro Basophils/100 WBC (Bld) 0.2 % Normal 0.2-2.0 [facility] Comment on above: Performed By: #### C BC ####[facility] Ysgkuxlsvn[address] [place], [place] [address]DrWesley Navarro EO # 0.3 103/ul Normal 0.0-0.7 [facility] Comment on above: Performed By: #### C BC ####[facility] Xoinrxecjs027[address] [place], [place] [address]DrWesley Navarro Eosinophils/100 WBC (Bld) 2.1 % Normal 0.9-7.0 [facility] Comment on above: Performed By: #### C BC ####[facility] Vnmqsvflcp[address] [place], [place] [address]DrWesley Navarro Erythrocyte distribution width (RBC) [Ratio] 17.9 % Critically high 11.0-15.0 [facility] Comment on above: Performed By: #### C BC ####[facility] Blikegwqlj10[address] [place], [place] [address]DrWesley Navarro Hematocrit (Bld) [Volume fraction] 42.1 % Normal 42.0-54.0 [facility] Comment on above: Performed By: #### C BC ####[facility] Xcahgxcnsk[address] [place], [place] [address]DrWesley Navarro Hemoglobin (Bld) [Mass/Vol] 13.8 g/dL Critically low 14.0-18.0 [facility] Comment on above: Performed By: #### C BC ####[facility] [address]opjf[address] [place], [place] [address]DrWesley Navarro IG # 0.06 10e3/ul Critically high 0.00-0.03 [facility] Comment on above: Performed By: #### C BC ####[facility] Tujwxvrsmf[address] [place], [place] [address]DrWesley Navarro IG % 0.5 % Normal 0.0-0.5 [facility] Comment on above: Performed By: #### C BC ####[facility] Urekgnvrkk[address]35[address] [place], [place] [address]DrWesley Navarro LYMPH # 1.7 103/ul Normal 1.2-3.8 [facility] Comment on above: Performed By: #### C BC ####[facility] [address]kqwel[address] [place] [address]DrWesley Navarro Lymphocytes/100 WBC (Bld) 13.1 % Critically low 20.5-60.0 [facility] Comment on above: Performed By: #### C BC ####[facility] Xxarntlenc4[address] [place], [place] [address]DrWesley Navarro MANUAL DIFF REQ NO Normal [facility] Comment on above: Performed By: #### C BC ####[facility] Xlyqvumnym[address] [place] [address]DrWesley Navarro MCH (RBC) [Entitic mass] 28.9 pg Normal 25.9-34.0 [facility] Comment on above: Performed By: #### C BC ####[facility] Tlfgywmbof[address] [place], [place] [address]DrWesley Navarro MCHC (RBC) [Mass/Vol] 32.8 g/dL Normal 29.9-35.2 [facility] Comment on above: Performed By: #### C BC ####[facility] Sxsrfupggq8230[address] [place], [place] [address]DrWesley Navarro MCV (RBC) [Entitic vol] 88.3 fL Normal 80.0-94.0 [facility] Comment on above: Performed By: #### C BC ####[facility] Swwxhwdqdt1024[address] [place], [place] [address]DrWesley Navarro MONO # 0.7 103/ul Normal 0.3-0.8 [facility] Comment on above: Performed By: #### C BC ####[facility] Imlsusovcf[address] [place], [place] [address]DrWesley Navarro Monocytes/100 WBC (Bld) 5.3 % Normal 1.7-12.0 [facility] Comment on above: Performed By: #### C BC ####[facility] Wbfqyqlmpe99[address] [place], [place] [address]DrWesley Navarro NEUT # 10.1 103/ul Critically high 1.4-6.5 [facility] Comment on above: Performed By: #### C BC ####[facility] [address]gtc[address] [place] [address]DrWesley Navarro Neutrophils/100 WBC (Bld) 78.8 % Critically high 43.0-75.0 [facility] Comment on above: Performed By: #### C BC ####[facility] [address]qzm[address]kjn[address] [place] [address]DrWesley Navarro Platelet mean volume (Bld) [Entitic vol] 10.8 fL Normal 9.5-13.5 [facility] Comment on above: Performed By: #### C BC ####[facility] Vjfdhmqnfw8862[address] [place], [place] [address]DrWesley Navarro PLT 143 103/ul Critically low 150-450 [facility] Comment on above: Performed By: #### C BC ####[facility] Rzdkjvgudj[address] [place], [place] [address]DrWesley Navarro RBC 4.77 106/ul Normal 4.70-6.10 [facility] Comment on above: Performed By: #### C BC ####[facility] [address]cwmpikxd[address] [place], [place] [address]DrWesley Navarro WBC 12.8 103/ul Critically high 4.0-11.0 [facility] Comment on above: Performed By: #### C BC ####[facility] Aqhlgegvnp[address] [place], [place] [address]DrWesley Navarro PROF CHEM 8 (BAS METB)on Anion gap [Moles/Vol] 12.2 mmol/L Normal [facility] Comment on above: Performed By: #### B HORTICULTURAL TECHNICAL OFFICER, BMP ####[facility] Rsfyqhrhlj54[address] [place], [place] [address]DrWesley Navarro Calcium [Mass/Vol] 8.6 mg/dL Normal 8.5-10.1 [facility] Comment on above: Performed By: #### B HORTICULTURAL TECHNICAL OFFICER, BMP ####[facility] G[address]myfh[address] [place] [address]Dr. Emelina Navarro Chloride [Moles/Vol] 102 mmol/L Normal 98-107 [facility] Comment on above: Performed By: #### B HORTICULTURAL TECHNICAL OFFICER, BMP ####[facility] Qqjjbeexmv4124[address] [place], [place] [address]Dr. Emelina Navarro CO2 [Moles/Vol] 26.4 mmol/L Normal 21.0-32.0 [facility] Comment on above: Performed By: #### B HORTICULTURAL TECHNICAL OFFICER, BMP ####[facility] Rrchibvbxy6288[address] [place], [place] [address]Dr. Emelina Navarro Creatinine [Mass/Vol] 1.56 mg/dL Critically high 0.70-1.30 [facility] Comment on above: Performed By: #### B HORTICULTURAL TECHNICAL OFFICER, BMP ####[facility] Umbixkozqj148[address] [place], [place] [address]Dr. Emelina Navarro EGFR-AF [place] 54 mL/min/1.73m2 Critically low >=60 [facility] Comment on above: Performed By: #### B HORTICULTURAL TECHNICAL OFFICER, BMP ####[facility] Jdkceyxopp0317[address] [place], [place] [address]Dr. Emelina Navarro EGFR-NON AF [place] 44 mL/min/1.73m2 Critically low >=60 [facility] Comment on above: Performed By: #### B HORTICULTURAL TECHNICAL OFFICER, BMP ####[facility] Wahggmcrik8[address] [place], [place] [address]Dr. Emelina Navarro Glucose [Mass/Vol] 211 mg/dL Critically high 74-106 [facility] Comment on above: Performed By: #### B HORTICULTURAL TECHNICAL OFFICER, BMP ####[facility] Wufdkgzxrb[address] [place], [place] [address]Dr. Emelina Navarro Potassium [Moles/Vol] 3.6 mmol/L Normal 3.5-5.1 [facility] Comment on above: Performed By: #### B HORTICULTURAL TECHNICAL OFFICER, BMP ####[facility] Vxpknyepvb110[address] [place], [place] [address]Dr. Emelina Navarro Sodium [Moles/Vol] 137 mmol/L Normal 136-145 [facility] Comment on above: Performed By: #### B HORTICULTURAL TECHNICAL OFFICER, BMP ####[facility] [address] [place] [id number]. Awildanitza Navarro Urea nitrogen [Mass/Vol] 42.0 mg/dL Critically high 7.0-18.0 [facility] Comment on above: Performed By: #### B HORTICULTURAL TECHNICAL OFFICER, BMP ####[facility] U[address]rwaspw[address] [place] [id number]. Emelina Navarro Urea nitrogen/Creatinine [Mass ratio] 26.9 mg/mg Normal [facility] Comment on above: Performed By: #### B HORTICULTURAL TECHNICAL OFFICER, BMP ####[facility] Lxzbdttdxn2440[address] [place], [place] [address]Dr. Eemlina Navarro Anion gap [Moles/Vol] 12.3 mmol/L Normal [facility] Comment on above: Performed By: #### B MP ####[facility] Svchzswqgk42[address] [place], [place] [address]Dr. Emelina Navarro Calcium [Mass/Vol] 8.4 mg/dL Critically low 8.5-10.1 [facility] Comment on above: Performed By: #### B MP ####[facility] Onhsywnvba299[address] [place], [place] [address]Dr. Emelina Navarro Chloride [Moles/Vol] 101 mmol/L Normal 98-107 [facility] Comment on above: Performed By: #### B MP ####[facility] Uelgydowzz9947[address] [place], [place] [address]Dr. Emelina Navarro CO2 [Moles/Vol] 27.4 mmol/L Normal 21.0-32.0 [facility] Comment on above: Performed By: #### B MP ####[facility] Muxbvjakdr9915[address] [place], [place] [address]Dr. Emelina Navarro Creatinine [Mass/Vol] 1.54 mg/dL Critically high 0.70-1.30 [facility] Comment on above: Performed By: #### B MP ####[facility] Igtbpiracs[address] [place], [place] [address]Dr. Emelina Navarro EGFR-AF [place] 55 mL/min/1.73m2 Critically low >=60 [facility] Comment on above: Performed By: #### B MP ####[facility] [address]tdv[address] [place] [address]Dr. Emelina Navarro EGFR-NON AF [place] 45 mL/min/1.73m2 Critically low >=60 [facility] Comment on above: Performed By: #### B MP ####[facility] Swxxhbqywi[address] [place] [address]Dr. Emelina Navarro Glucose [Mass/Vol] 115 mg/dL Critically high 74-106 [facility] Comment on above: Performed By: #### B MP ####[facility] Hlcfrqaobe[address] [place] [address]Dr. Emelina Navarro Potassium [Moles/Vol] 3.7 mmol/L Normal 3.5-5.1 [facility] Comment on above: Performed By: #### B MP ####[facility] Elakoheedn[address] [place], [place] [address]Dr. Emelina Navarro Sodium [Moles/Vol] 137 mmol/L Normal 136-145 [facility] Comment on above: Performed By: #### B MP ####[facility] Uiilrckbvq14[address] [place], [place] [address]Dr. Emelina Navarro Urea nitrogen [Mass/Vol] 40.0 mg/dL Critically high 7.0-18.0 [facility] Comment on above: Performed By: #### B MP ####[facility] Flwxefsgzq3170[address] [place], [place] [address]Dr. Emelina Navarro Urea nitrogen/Creatinine [Mass ratio] 26.0 mg/mg Normal [facility] Comment on above: Performed By: #### B MP ####[facility] Jkhuwzqtja[address] [place], [place] [address]Dr. Emelina Navarro XR CHEST 1 Von 01-02-2023 XR CHEST 1 V Normal [facility] BNPon 12-26-2022 Natriuretic peptide B (Bld) [Mass/Vol] 9102.0 pg/mL Critically high <=900.0 [facility] Comment on above: Performed By: #### B HORTICULTURAL TECHNICAL OFFICER ####[facility] Iqawkvnshy8[address] [place], [place] [address]Dr. Emelina Navarro PROF CHEM 8 (BAS METB)on Anion gap [Moles/Vol] 14.4 mmol/L Normal [facility] Comment on above: Performed By: #### B MP ####[facility] Oxewtekmcb[address] [place] [address]Dr. Emelina Navarro Calcium [Mass/Vol] 8.6 mg/dL Normal 8.5-10.1 [facility] Comment on above: Performed By: #### B MP ####[facility] Rkqhmymnnr[address] [place] [address]Dr. Emelina Navarro Chloride [Moles/Vol] 101 mmol/L Normal 98-107 [facility] Comment on above: Performed By: #### B MP ####[facility] Jjlzszyoin6[address] [place] [address]Dr. Emelina Navarro CO2 [Moles/Vol] 27.2 mmol/L Normal 21.0-32.0 [facility] Comment on above: Performed By: #### B MP ####[facility] Yhxyspxvep[address] [place] [address]Dr. Emelina Navarro Creatinine [Mass/Vol] 1.69 mg/dL Critically high 0.70-1.30 [facility] Comment on above: Performed By: #### B MP ####[facility] R[address]quwaaqb[address] [place] [address]Dr. Emelina Navarro EGFR-AF [place] 49 mL/min/1.73m2 Critically low >=60 [facility] Comment on above: Performed By: #### B MP ####[facility] Qujakkwgpd[address] [place] [address]Dr. Emelina Navarro EGFR-NON AF [place] 41 mL/min/1.73m2 Critically low >=60 [facility] Comment on above: Performed By: #### B MP ####[facility] Vinamebmdq[address] [place] [address]Dr. Emelina Navarro Glucose [Mass/Vol] 163 mg/dL Critically high 74-106 [facility] Comment on above: Performed By: #### B MP ####[facility] Iz[address]fckhzc6552 [place], [place] [address]Pi. Emelina Navarro Potassium [Moles/Vol] 3.6 mmol/L Normal 3.5-5.1 [facility] Comment on above: Performed By: #### B MP ####[facility] Bgcbswbbxu4813 [place], [place] [address]Do. Emelina Navarro Sodium [Moles/Vol] 139 mmol/L Normal 136-145 [facility] Comment on above: Performed By: #### B MP ####[facility] Z[address]rivwkew9[address] [place], [place] [address]Az. Emelina Navarro Urea nitrogen [Mass/Vol] 36.0 mg/dL Critically high 7.0-18.0 [facility] Comment on above: Performed By: #### B MP ####[facility] Ojvmkodwzu[address] [place], [place] [address]Tr. Emelina Navarro Urea nitrogen/Creatinine [Mass ratio] 21.3 mg/mg Normal [facility] Comment on above: Performed By: #### B MP ####[facility] Tolzdjoslo[address] [place], [place] [address]Ca. Emelina Navarro Albumin [Mass/volume] in Ser um or PlasmaOrdered By: Ethan Cummings on 12-02-2022 Albumin [Mass/Vol] 3.9 g/dL 3.2-5.5 [facility] Basophils Auto (Bld) [#/Vol] Ordered By: Ethan Cummings on 12-02-2022 Basophils (Bld) [#/Vol] 0.1 10*3/uL 0.0-0.2 [facility] Basophils/100 WBC Auto (Bld) Ordered By: Ethan Cummings on 12-02-2022 Basophils/100 WBC (Bld) 0.7 % . [facility] CT biopsyOrdered By: Ethan Cummings on 12-02-2022 Transferrin [Mass/Vol] 240 mg/dL 180-380 [facility] Creatinine and Glomerular fi ltration rate.predicted panel (S/P/Bld)Ordered By: Ethan Cummings on 12-02-2022 Creatinine [Mass/Vol] 1.58 mg/dL 0.64-1.27 [facility] Eosinophils Auto (Bld) [#/Vo l]Ordered By: Ethan Cummings on 12-02-2022 Eosinophils (Bld) [#/Vol] 0.4 10*3/uL 0.0-0.45 [facility] Eosinophils/100 WBC Auto (Bl d)Ordered By: Ethan Cummings on 12-02-2022 Eosinophils/100 WBC (Bld) 3.5 % . [facility] Erythrocyte distribution wid th Auto (RBC) [Ratio]Ordered By: Ethan Cummings on 12-02-2022 Erythrocyte distribution width (RBC) [Ratio] 19.6 % 12.0-14.8 [facility] Estimated glomerular filtrat ion rate (GFR) non- AmericanOrdered By: Ethan Cummings on 12-02-2022 GFR/1.73 sq M.predicted among non-blacks MDRD (S/P/Bld) [Vol rate/Area] 44 mL/Min [facility] Ferritin [Mass/volume] in Se rum or PlasmaOrdered By: Ethan Cummings on 12-02-2022 Ferritin [Mass/Vol] 85.7 ng/mL 23.9-336.2 [facility] Folate [Mass/volume] in Seru m or PlasmaOrdered By: Ethan Cummings on 12-02-2022 Folate [Mass/Vol] ng/mL >5.9 [facility] Comment on above: Folate reference ran ge: >5.9 ng/mlThe WHO technical consultation on folate and vitamin [id number] has determined that folate concentrations lessthan 4 ng/ml are considered deficient. Globulin Calc (S) [Mass/Vol] Ordered By: Ethan Cummings on 12-02-2022 Globulin (S) [Mass/Vol] 3.7 g/dL [facility] Hematocrit Auto (Bld) [Volum e fraction]Ordered By: Ethan Cummings on 12-02-2022 Hematocrit (Bld) [Volume fraction] 47.4 % 38.8-50.0 [facility] Hemoglobin [Mass/volume] in BloodOrdered By: Etahn Cummings on 01-14-2023 Hemoglobin (Bld) [Mass/Vol] 15.3 g/dL 13.0-17.0 [facility] Iron [Mass/volume] in Serum or PlasmaOrdered By: Ethan Cummings on 12-02-2022 Iron [Mass/Vol] 96 ug/dL 40-160 [facility] Iron binding capacity [Mass/ volume] in Serum or PlasmaOrdered By: Ethan Cummings on 12-02-2022 Iron binding capacity [Mass/Vol] 336 ug/dL 255-450 [facility] Iron saturation [Mass Fracti on] in Serum or PlasmaOrdered By: Ethan Cummings on 12-02-2022 Iron saturation [Mass fraction] 28.6 % 20-50 [facility] Laboratory - Chemistry and C hemistry - challengeOrdered By: Ethan Cummings on 12-02-2022 Cobalamin (Vitamin B12) [Mass/Vol] 1521 pg/mL 180-914 [facility] Leukocytes [#/volume] correc morris for nucleated erythrocytes in Blood by Automated counOrdered By: Ethan Cummings on 12-02-2022 WBC corrected for nucl RBC Auto (Bld) [#/Vol] 11.8 10*3/uL 4.1-10.5 [facility] Lymphocytes Auto (Bld) [#/Vo l]Ordered By: Ethan Cummings on 12-02-2022 Lymphocytes (Bld) [#/Vol] 2.4 10*3/uL 1.00-4.8 [facility] Lymphocytes/100 WBC Auto (Bl d)Ordered By: Ethan Cummings on 12-02-2022 Lymphocytes/100 WBC (Bld) 20.5 % . [facility] MCH Auto (RBC) [Entitic mass ]Ordered By: Ethan Cummings on 12-02-2022 MCH (RBC) [Entitic mass] 28.3 pg 27.5-35.2 [facility] MCHC Auto (RBC) [Mass/Vol]Or dered By: Ethan Cummings on 12-02-2022 MCHC (RBC) [Mass/Vol] 32.3 g/dL 32.5-35.6 [facility] MCV Auto (RBC) [Entitic vol] Ordered By: Ethan Cummings on 12-02-2022 MCV (RBC) [Entitic vol] 87.5 fL 83.5-101 [facility] Monocytes Auto (Bld) [#/Vol] Ordered By: Ethan Cummings on 12-02-2022 Monocytes (Bld) [#/Vol] 1.0 10*3/uL 0.0-0.8 [facility] Monocytes/100 WBC Auto (Bld) Ordered By: Ethan Cummings on 12-02-2022 Monocytes/100 WBC (Bld) 8.2 % . [facility] Neutrophils Auto (Bld) [#/Vo l]Ordered By: Ethan Cummings on 12-02-2022 Neutrophils (Bld) [#/Vol] 7.9 10*3/uL 1.8-7.7 [facility] Neutrophils/100 WBC Auto (Bl d)Ordered By: Ethan Cummings on 12-02-2022 Neutrophils/100 WBC (Bld) 67.1 % . [facility] No Panel InformationOrdered By: Ethan Cummings on 12-02-2022 Estimated GFR () 53 mL/Min [facility] Comment on above: GFR estimated refere nce range: According to KDOQI guidelines, <60 ml/min/1.73m2 is sufficient to diagnose a patient with chronic kidney disease. Pharmacy Creatinine Clearance (Chem 53.88 [facility] Nucleated erythrocytes [Pres ence] in Blood by Automated countOrdered By: Ethan Cummings on 12-02-2022 Nucleated RBC Auto Ql (Bld) 0.1 /100{WBC} 0-0.5 [facility] Platelet mean volume Auto (B ld) [Entitic vol]Ordered By: Ethan Cummings on 12-02-2022 Platelet mean volume (Bld) [Entitic vol] 8.5 fL 6.6-10.1 [facility] Platelets Auto (Bld) [#/Vol] Ordered By: Ethan Cummings on 12-02-2022 Platelets (Bld) [#/Vol] 214 10*3/uL 150-450 [facility] Protein [Mass/volume] in Ser um or PlasmaOrdered By: Ethan Cummings on 12-02-2022 Protein [Mass/Vol] 7.6 g/dL 6.1-7.9 [facility] RBC Auto (Bld) [#/Vol]Ordere d By: Ethan Cummings on 12-02-2022 RBC (Bld) [#/Vol] 5.41 10*6/uL 3.90-5.60 [facility] Serum or plasma alanine valle otransferase measurement without P-5'-P (enzymatic activiOrdered By: Ethan Cummings on 12-02-2022 ALT No additional P-5'-P [Catalytic activity/Vol] 19 U/L 10-60 [facility] Serum or plasma albumin/glob ulin mass ratioOrdered By: Ethan Cummings on 12-02-2022 Albumin/Globulin [Mass ratio] 1.1 {ratio} [facility] Serum or plasma alkaline tosin sphatase measurement (enzymatic activity/volume)Ordered By: Ethan Cummings on 12-02-2022 ALP [Catalytic activity/Vol] 101 U/L 32-92 [facility] Serum or plasma anion gap de terminationOrdered By: Ethan Cummings on 12-02-2022 Anion gap [Moles/Vol] 13.2 mmol/L 6.0-15.0 [facility] Serum or plasma aspartate am inotransferase measurement (enzymatic activity/volume)Ordered By: Ethan Cummings on 12-02-2022 AST [Catalytic activity/Vol] 32 U/L 10-42 [facility] Serum or plasma calcium mike urement (mass/volume)Ordered By: Ethan Cummings on 12-02-2022 Calcium [Mass/Vol] 9.5 mg/dL 8.2-10.2 [facility] Serum or plasma chloride arash surement (moles/volume)Ordered By: Ethan Cummings on 12-02-2022 Chloride [Moles/Vol] 101 mmol/L 95-114 [facility] Serum or plasma glucose mike urement (mass/volume)Ordered By: Ethan Cummings on 12-02-2022 Glucose [Mass/Vol] 150 mg/dL 70-100 [facility] Comment on above: ADA recommended refe rence rangeRandom Glucose Reference Range is dependent on time and content of last meal. Glucose of more than 200 mg/dL in a nonstressed, ambulatory subject supports the diagnosis of Diabetes Mellitus. Serum or plasma potassium me asurement (moles/volume)Ordered By: Ethan Cummings on 12-02-2022 Potassium [Moles/Vol] 4.3 mmol/L 3.5-5.1 [facility] Serum or plasma sodium measu rement (moles/volume)Ordered By: Ethan Cummings on 12-02-2022 Sodium [Moles/Vol] 140 mmol/L 136-146 [facility] Serum or plasma total biliru bin measurement (mass/volume)Ordered By: Ethan Cummings on 12-02-2022 Bilirubin [Mass/Vol] 1.5 mg/dL 0.3-1.2 [facility] Comment on above: Samples from patient s who have taken Naproxen have shown spurious elevation in Total Bilirubin levels. A metabolite of Naproxen, O-desmethylnaproxen, has been shown to interfere with the Jesi-Ananya method for measuring Total Bilirubin. Serum or plasma total carbon dioxide measurement (moles/volume)Ordered By: Ethan Cummings on 12-02-2022 CO2 [Moles/Vol] 30.1 mmol/L 22.0-30.[address] [facility] Serum or plasma urea nitroge n measurement (mass/volume)Ordered By: Ethan Cummings on 12-02-2022 Urea nitrogen [Mass/Vol] 22 mg/dL 9 [facility] WBC Auto (Bld) [#/Vol]Ordere d By: Ethan Cummings on 12-02-2022 WBC (Bld) [#/Vol] 11.8 10*3/uL 4.1-10.5 [facility] PROF CHEM 8 (BAS METB)on Anion gap [Moles/Vol] 12.6 mmol/L Normal [facility] Comment on above: Performed By: #### B MP ####[facility] [address]pzmufuiaf[address] [place] [address]Dr. Emelina Navarro Calcium [Mass/Vol] 9.0 mg/dL Normal 8.5-10.1 [facility] Comment on above: Performed By: #### B MP ####[facility] Xpsdhmxuzx[address] [place], [place] [address]Dr. Emelina Navarro Chloride [Moles/Vol] 99 mmol/L Normal 98-107 [facility] Comment on above: Performed By: #### B MP ####[facility] Ijrkhptkpp[address] [place], [place] [address]Dr. Emelina Navarro CO2 [Moles/Vol] 33.2 mmol/L Critically high 21.0-32.0 [facility] Comment on above: Performed By: #### B MP ####[facility] Bfyklryoru[address] [place], [place] [address]Dr. Emelina Navarro Creatinine [Mass/Vol] 1.75 mg/dL Critically high 0.70-1.30 [facility] Comment on above: Performed By: #### B MP ####[facility] Rjdxwarada[address] [place], [place] [address]Dr. Emelina Navarro EGFR-AF [place] 47 mL/min/1.73m2 Critically low >=60 [facility] Comment on above: Performed By: #### B MP ####[facility] Vjsyobnayl[address] [place], [place] [address]Dr. Emelina Navarro EGFR-NON AF [place] 39 mL/min/1.73m2 Critically low >=60 [facility] Comment on above: Performed By: #### B MP ####[facility] Vnzitpshti[address] [place], [place] [address]Dr. Emelina Navarro Glucose [Mass/Vol] 132 mg/dL Critically high 74-106 [facility] Comment on above: Performed By: #### B MP ####[facility] Gmjlitmdwq7395[address] [place], [place] [address]Dr. Emelina Navarro Potassium [Moles/Vol] 3.8 mmol/L Normal 3.5-5.1 [facility] Comment on above: Performed By: #### B MP ####[facility] Eylsjjrxog9125[address] [place], [place] [address]Dr. Emelina Navarro Sodium [Moles/Vol] 141 mmol/L Normal 136-145 [facility] Comment on above: Performed By: #### B MP ####[facility] [address]vtdanlsp33[address] [place] [id number]. Emelina Navarro Urea nitrogen [Mass/Vol] 22.0 mg/dL Critically high 7.0-18.0 [facility] Comment on above: Performed By: #### B MP ####[facility] Lkveazqift8454 [place] [id number] Navarro Urea nitrogen/Creatinine [Mass ratio] 12.6 mg/mg Normal [facility] Comment on above: Performed By: #### B MP ####[facility] Kyeorgxujk1862[address] [place], [place] [address]Dr. Emelina Navarro A1C HEMOGLOBINon 11-07-2022 HbA1c (Bld) [Mass fraction] 7.4 % [facility] [employer] [employer] Other Glucose - FINGER STICKon Glucose [Mass/Vol] 109 mg/dL [employer] Other HbA1c (Bld) [Mass fraction]o n 11-07-2022 A1C HEMOGLOBIN [facility] [employer] Other PROF CHEM 8 (BAS METB)on Anion gap [Moles/Vol] 12.2 mmol/L Normal [facility] Comment on above: Performed By: #### B MP ####[facility] Gytttmnawq2[address] [place] [phone] Navarro Calcium [Mass/Vol] 8.7 mg/dL Normal 8.5-10.1 [facility] Comment on above: Performed By: #### B MP ####[facility] Yyjtaiyrvx3411 [place] [address]DrWesley Navarro Chloride [Moles/Vol] 101 mmol/L Normal 98-107 [facility] Comment on above: Performed By: #### B MP ####[facility] Cbyfiwvqai9155 [place] [address]DrWesley Navarro CO2 [Moles/Vol] 29.9 mmol/L Normal 21.0-32.0 [facility] Comment on above: Performed By: #### B MP ####[facility] Icbsfxzwxy1122 [place] [address]Dr. Awildanitza Ramon Creatinine [Mass/Vol] 1.78 mg/dL Critically high 0.70-1.30 [facility] Comment on above: Performed By: #### B MP ####[facility] Ufxbyenawq[address] [place], [place] [address]Dr. Emelina Navarro EGFR-AF [place] 46 mL/min/1.73m2 Critically low >=60 [facility] Comment on above: Performed By: #### B MP ####[facility] Gqczqmgzkr[address] [place], [place] [address]Dr. Emelina Navarro EGFR-NON AF [place] 38 mL/min/1.73m2 Critically low >=60 [facility] Comment on above: Performed By: #### B MP ####[facility] Wqtvpenzhr7922[address] [place], [place] [address]Dr. Emelina Navarro Glucose [Mass/Vol] 127 mg/dL Critically high 74-106 [facility] Comment on above: Performed By: #### B MP ####[facility] Nbaqpexznd4316[address] [place], [place] [address]Dr. Emelina Navarro Potassium [Moles/Vol] 4.1 mmol/L Normal 3.5-5.1 [facility] Comment on above: Performed By: #### B MP ####[facility] Ahlfznovsw49[address] [place] [address]Dr. Emelina Navarro Sodium [Moles/Vol] 139 mmol/L Normal 136-145 [facility] Comment on above: Performed By: #### B MP ####[facility] Wtbeybpuxx[address] [place], [place] [address]Dr. Emelina Navarro Urea nitrogen [Mass/Vol] 39.0 mg/dL Critically high 7.0-18.0 [facility] Comment on above: Performed By: #### B MP ####[facility] Dbfebvglmv8363[address] [place], [place] [address]Dr. Emelina Navarro Urea nitrogen/Creatinine [Mass ratio] 21.9 mg/mg Normal [facility] Comment on above: Performed By: #### B MP ####[facility] Wrkezmfewf1807[address] [place], [place] [address]Dr. Emelina Navarro BNPon 10-03-2022 Natriuretic peptide B (Bld) [Mass/Vol] 7092.0 pg/mL Critically high <=900.0 [facility] Comment on above: Performed By: #### H STROPN, BNP, CMP ####[facility] Wqgtpuibjn7687[address] [place], [place] [address]Dr. Emelina Navarro CBC AUTO DIFFon 10-03-2022 BASO # 0.0 103/ul Normal 0.0-0.1 [facility] Comment on above: Performed By: #### C BC ####[facility] Bzfuzzpsrn7125[address] [place], [place] [address]Dr. Emelina Navarro Basophils/100 WBC (Bld) 0.3 % Normal 0.2-2.0 [facility] Comment on above: Performed By: #### C BC ####[facility] Fmhehuktls2447[address] [place], [place] [address]Dr. Emelina Navarro EO # 0.3 103/ul Normal 0.0-0.7 [facility] Comment on above: Performed By: #### C BC ####[facility] Gbtoztezib[address] [place], [place] [address]Dr. Emelina Navarro Eosinophils/100 WBC (Bld) 2.5 % Normal 0.9-7.0 [facility] Comment on above: Performed By: #### C BC ####[facility] Quuwtdbjxq4865[address] [place], [place] [address]Dr. Emelina Navarro Erythrocyte distribution width (RBC) [Ratio] 16.1 % Critically high 11.0-15.0 [facility] Comment on above: Performed By: #### C BC ####[facility] Peaebcqzyp[address] [place], [place] [address]Dr. Emelina Navarro Hematocrit (Bld) [Volume fraction] 40.4 % Critically low 42.0-54.0 [facility] Comment on above: Performed By: #### C BC ####[facility] [address]fc[address]alljje4[address] [place] [phone]. Emelina Navarro Hemoglobin (Bld) [Mass/Vol] 12.9 g/dL Critically low 14.0-18.0 [facility] Comment on above: Performed By: #### C BC ####[facility] [address]rzghcfkwy97[address] [place] [phone]. Emelina Navarro IG # 0.05 10e3/ul Critically high 0.00-0.03 [facility] Comment on above: Performed By: #### C BC ####[facility] Bqksprngqi5360 [place] [phone]. Emelina Navarro IG % 0.4 % Normal 0.0-0.5 [facility] Comment on above: Performed By: #### C BC ####[facility] Epbrkdunli10[address] [place] [address]Dr. Emelina Nvaarro LYMPH # 1.5 103/ul Normal 1.2-3.8 [facility] Comment on above: Performed By: #### C BC ####[facility] Mqnxnbsiyy5170 [place] [phone]. Emelina Navarro Lymphocytes/100 WBC (Bld) 13.1 % Critically low 20.5-60.0 [facility] Comment on above: Performed By: #### C BC ####[facility] Ekitxvhqky26[address] [place] [phone]. Emelina Navarro MANUAL DIFF REQ NO Normal [facility] Comment on above: Performed By: #### C BC ####[facility] Woxfipomdi9121 [place] [phone]. Emelina Navarro MCH (RBC) [Entitic mass] 28.9 pg Normal 25.9-34.0 [facility] Comment on above: Performed By: #### C BC ####[facility] Atuapsqflt1214 [place] [phone]. Emelina Navarro MCHC (RBC) [Mass/Vol] 31.9 g/dL Normal 29.9-35.2 [facility] Comment on above: Performed By: #### C BC ####[facility] Rrbdeobijw0665 [place] [phone]. Emelina Navarro MCV (RBC) [Entitic vol] 90.6 fL Normal 80.0-94.0 [facility] Comment on above: Performed By: #### C BC ####[facility] Xpmqbdivcw0505 [place] [phone]. Emelina Navarro MONO # 0.8 103/ul Normal 0.3-0.8 [facility] Comment on above: Performed By: #### C BC ####[facility] Yonadlqwgw3108 [place] [phone]. Awildanitza Navarro Monocytes/100 WBC (Bld) 7.0 % Normal 1.7-12.0 [facility] Comment on above: Performed By: #### C BC ####[facility] Fshjughvoj[address] [place], [place] [address]Dr. Emelina Navarro NEUT # 8.8 103/ul Critically high 1.4-6.5 [facility] Comment on above: Performed By: #### C BC ####[facility] Hzcrseqqzb[address] [place], [place] [id number]. Emelina Navarro Neutrophils/100 WBC (Bld) 76.7 % Critically high 43.0-75.0 [facility] Comment on above: Performed By: #### C BC ####[facility] Kivuxfutzo[address] [place], [place] [address]Dr. Emelina Navarro Platelet mean volume (Bld) [Entitic vol] 9.9 fL Normal 9.5-13.5 [facility] Comment on above: Performed By: #### C BC ####[facility] Eqifsrqpfs85[address] [place] [phone]. Emelina Ramon PLT 201 103/ul Normal 150-450 [facility] Comment on above: Performed By: #### C BC ####[facility] Xgwtudjzaa1884 [place] [phone]. Emelina Navarro RBC 4.46 106/ul Critically low 4.70-6.10 [facility] Comment on above: Performed By: #### C BC ####[facility] Mrmzihtfhe3790 [place], [place] [address]Kv. Emelina Navarro WBC 11.4 103/ul Critically high 4.0-11.0 [facility] Comment on above: Performed By: #### C BC ####[facility] Mpnjlbogit4321 [place], [place] [address]Ji. Emelina Navarro Covid-19 PCR (CVDTBH)on 09-19 SARS-CoV-2 (COVID-19) RNA RADHA+probe Ql (Unsp spec) Not detected Normal NOT DETECTED [facility] Comment on above: Result Comment: [...] for this test is supported by the [place] of [employer] and Human Service's declaration that [...] be used). Performed By: #### C VDTBH ####[facility] Qimfoppgwa8406 [place] [phone]. Emelina Ramon PROF 14(COMP METB)on 022 Albumin [Mass/Vol] 3.1 g/dL Critically low 3.4-5.0 [facility] Comment on above: Performed By: #### H STROPN, BNP, CMP ####[facility] Tbqmqucnyz2320 [place] [phone]. Emelina Navarro Albumin/Globulin [Mass ratio] 0.8 {ratio} Normal [facility] Comment on above: Performed By: #### H STROPN, BNP, CMP ####[facility] Brzapngrdb54[address] [place] [address]Dr. Emelina Navarro ALP [Catalytic activity/Vol] 118 U/L Critically high 46-116 [facility] Comment on above: Performed By: #### H STROPN, BNP, CMP ####[facility] Oikkedagun[address] [place] [address]Dr. Emelina Navarro ALT [Catalytic activity/Vol] 22 U/L Normal 16-63 [facility] Comment on above: Performed By: #### H STROPN, BNP, CMP ####[facility] Chhqbbodth29[address] [place] [address]Dr. Emelina Navarro Anion gap [Moles/Vol] 8.6 mmol/L Normal [facility] Comment on above: Performed By: #### H STROPN, BNP, CMP ####[facility] Gwgmmnwwpp3103 [place] [address]Dr. Emelina Navarro AST [Catalytic activity/Vol] 23 U/L Normal 15-37 [facility] Comment on above: Performed By: #### H STROPN, BNP, CMP ####[facility] Ibwzivnxdx7593 [place] [address]Dr. Emelina Navarro Bilirubin [Mass/Vol] 1.0 mg/dL Normal 0.2-1.0 [facility] Comment on above: Performed By: #### H STROPN, BNP, CMP ####[facility] Nqydfkkdex5095 [place] [address]Dr. Emelina Navarro Calcium [Mass/Vol] 8.4 mg/dL Critically low 8.5-10.1 [facility] Comment on above: Performed By: #### H STROPN, BNP, CMP ####[facility] Oxkppghthc8051 [place] [address]Dr. Emelina Navarro Chloride [Moles/Vol] 101 mmol/L Normal 98-107 [facility] Comment on above: Performed By: #### H STROPN, BNP, CMP ####[facility] Qxxiezqnqz8199 [place] [address]Dr. Emelina Navarro CO2 [Moles/Vol] 33.3 mmol/L Critically high 21.0-32.0 [facility] Comment on above: Performed By: #### H STROPN, BNP, CMP ####[facility] Kmlpatvkac5136 [place] [address]Dr. Emelina Navarro Creatinine [Mass/Vol] 1.52 mg/dL Critically high 0.70-1.30 [facility] Comment on above: Performed By: #### H STROPN, BNP, CMP ####[facility] Pfqbjpbjxj84[address] [place], [place] [address]Dr. Emelina Navarro EGFR-AF [place] 56 mL/min/1.73m2 Critically low >=60 [facility] Comment on above: Performed By: #### H STROPN, BNP, CMP ####[facility] Vzgjohgbgm[address] [place], [place] [address]Dr. Emelina Navarro EGFR-NON AF [place] 46 mL/min/1.73m2 Critically low >=60 [facility] Comment on above: Performed By: #### H STROPN, BNP, CMP ####[facility] Rdmpuvxzka[address] [place], [place] [address]Dr. Emelina Navarro Globulin (S) [Mass/Vol] 4.1 g/dL Normal [facility] Comment on above: Performed By: #### H STROPN, BNP, CMP ####[facility] Irwezcptdd6930 [place] [address]Dr. Emelina Navarro Glucose [Mass/Vol] 141 mg/dL Critically high 74-106 [facility] Comment on above: Performed By: #### H STROPN, BNP, CMP ####[facility] Pzftpujlui5972 [place] [address]Dr. Emelina Navarro Potassium [Moles/Vol] 3.9 mmol/L Normal 3.5-5.1 [facility] Comment on above: Performed By: #### H STROPN, BNP, CMP ####[facility] Ndzfgobufs7603 [place] [address]Dr. Emelina Navarro Protein [Mass/Vol] 7.2 g/dL Normal 6.4-8.2 [facility] Comment on above: Performed By: #### H STROPN, BNP, CMP ####[facility] Fnwfkyhjge4101 [place] [address]Dr. Emelina Navarro Sodium [Moles/Vol] 139 mmol/L Normal 136-145 [facility] Comment on above: Performed By: #### H STROPN, BNP, CMP ####[facility] Bwdrhkogjf8058 [place] [address]Dr. Emelina Navarro Urea nitrogen [Mass/Vol] 26.0 mg/dL Critically high 7.0-18.0 [facility] Comment on above: Performed By: #### H STROPN, BNP, CMP ####[facility] Osahwuwulk1342 [place] [address]Dr. Emelina Navarro Urea nitrogen/Creatinine [Mass ratio] 17.1 mg/mg Normal [facility] Comment on above: Performed By: #### H STROPN, BNP, CMP ####[facility] Dncxsehgnr93[address] [place], [place] [address]Dr. Emelina Navarro PROTIMEon 10-03-2022 INR Coag (PPP) [Relative time] 1.76 {INR} Normal [facility] Comment on above: Performed By: #### P T, PTT ####[facility] Eiupfsweyo[address] [place], [place] [address]Dr. Emelina Navarro INR GUIDELINES SEE BELOW Normal [facility] Comment on above: Result Comment: WENDY RED INR: 2.0 - 3.0 CONDITIONS NOT LISTED BELOW 2.5 - 3.5 FOR PROSTHETIC HEART VALVE REPLACEMENT 2.5 - 3.5 RECURRENT THROMBOSIS Performed By: #### P T, PTT ####[facility] Kyzdqrfudo[address] [place], [place] [address]Dr. Emelina Navarro PT Coag (PPP) [Time] 18.3 s Critically high 9.0-11.6 [facility] Comment on above: Performed By: #### P T, PTT ####[facility] Kneajkmtpp[address]64[address] [place], [place] [address]Dr. Emelina Navarro PTTon 10-03-2022 aPTT Coag (Bld) [Time] 33.9 s Normal 22.3-36.2 [facility] Comment on above: Performed By: #### P T, PTT ####[facility] Fxyrlzlfir64[address] [place] [address]Dr. Emelina Navarro TROPONIN, HIGH SENSITIVITYon 10-03-2022 HSTROP 40.2 pg/mL Normal 4.0-76.1 [facility] Comment on above: Result Comment: CUT- OFF POINTS HAVE BEEN ESTABLISHED BASED ON THE FOURTH UNIVERSAL DEFINITIONS OF MYOCARDIALINFARCTION. THE UPPER REFERENCE LIMIT (URL) OF TROPONIN, DEFINED THE 99TH PERCENTILE OFcTnI DISTRIBUTION IN A REFERENCE POPULATION, HAS BEEN CONFIRMED THE DECISION THRESHOLDFOR IA DIAGNOSIS. Performed By: #### H STROPN, BNP, CMP ####[facility] Sguovlfupl[address] [place], [place] [address]Dr. Emelina Navarro XR CHEST 1 Von 10-03-2022 XR CHEST 1 V Normal [facility] PTH INTACTon 09-19-2022 PTH, Intact 52 pg/mL Normal 15-65 [facility] Comment on above: Performed By: #### P THINT ####[facility] Ykbthvntzd[address] [place], [place] [address]Dr. Emelina Ramon FERRITINon 09-18-2022 Ferritin [Mass/Vol] 92.0 ng/mL Normal 26.0-388.0 [facility] Comment on above: Performed By: #### V ITAD, FERR, FETIBC ####[facility] Vnnontweaj5994 [place] [address]Dr. Emelina Navarro HEMOGRAM AND PLATELon 2021 Hematocrit (Bld) [Volume fraction] 44.3 % Normal 42.0-54.0 [facility] Comment on above: Performed By: #### H H ####[facility] Ddcwtndono65[address] [place], [place] [address]Dr. Emelina Navarro Hemoglobin (Bld) [Mass/Vol] 14.0 g/dL Normal 14.0-18.0 [facility] Comment on above: Performed By: #### H H ####[facility] Ikapflsjsu8046[address] [place], [place] [address]Dr. Emelina Navarro MCH (RBC) [Entitic mass] 29.0 pg Normal 25.9-34.0 [facility] Comment on above: Performed By: #### H H ####[facility] Jpuvecoawq8574 [place] [address]Dr. Emelina Navarro MCHC (RBC) [Mass/Vol] 31.6 g/dL Normal 29.9-35.2 [facility] Comment on above: Performed By: #### H H ####[facility] Rpefuhvjsc7507 [place] [address]Dr. Emelina Navarro MCV (RBC) [Entitic vol] 91.7 fL Normal 80.0-94.0 [facility] Comment on above: Performed By: #### H H ####[facility] Obgjnwixal0356 [place] [address]Dr. Emelina Navarro PLT 187 103/ul Normal 150-450 [facility] Comment on above: Performed By: #### H H ####[facility] Cilztulrss4685 [place] [address]Dr. Emelina Navarro RBC 4.83 106/ul Normal 4.70-6.10 [facility] Comment on above: Performed By: #### H H ####[facility] Btymjllysf5392 [place] [address]Dr. Emelina Navarro WBC 13.9 103/ul Critically high 4.0-11.0 [facility] Comment on above: Performed By: #### H H ####[facility] Ocqkpaejyw9656 [place] [phone]. Emelina Navarro IRON AND TIBCon 09-18-2022 % SATURATION 28.9 % Normal [facility] Comment on above: Performed By: #### V ITAD, FERR, FETIBC ####[facility] Hgxztxeibr5422 [place] [phone]. Emelina Navarro Iron [Mass/Vol] 76.0 ug/dL Normal 65.0-175.0 [facility] Comment on above: Performed By: #### V ITAD, FERR, FETIBC ####[facility] Njtuytgenh6389 [place] [phone]. Emelina Navarro TIBC DIRECT 263.0 ug/dL Normal 250.0-450. 0 [facility] Comment on above: Performed By: #### V ITAD, FERR, FETIBC ####[facility] Stlqznvxsw8573 [place] [address]Dr. Emelina Navarro MAGNESIUMon 09-18-2022 Magnesium [Mass/Vol] 2.3 mg/dL Normal 1.8-2.4 [facility] Comment on above: Performed By: #### R ENAL, URIC, MG ####[facility] Upoprpglaa5982 [place] [address]Dr. Emelina Navarro RENAL FUNCTION PANELon 09-18 Albumin [Mass/Vol] 3.5 g/dL Normal 3.4-5.0 [facility] Comment on above: Performed By: #### R ENAL, URIC, MG ####[facility] Hiaaklxavd[address] [place], [place] [address]Dr. Emelina Navarro Calcium [Mass/Vol] 8.4 mg/dL Critically low 8.5-10.1 [facility] Comment on above: Performed By: #### R ENAL, URIC, MG ####[facility] Kohtewpnda[address] [place], [place] [address]Dr. Emelina Navarro Chloride [Moles/Vol] 100 mmol/L Normal 98-107 [facility] Comment on above: Performed By: #### R ENAL, URIC, MG ####[facility] Vkfvbbxlzy8568 [place] [address]Dr. Emelina Navarro CO2 [Moles/Vol] 31.0 mmol/L Normal 21.0-32.0 [facility] Comment on above: Performed By: #### R ENAL, URIC, MG ####[facility] Mnkjeywopf[address] [place], [place] [address]Dr. Awildanitza Navaror Creatinine [Mass/Vol] 1.63 mg/dL Critically high 0.70-1.30 [facility] Comment on above: Performed By: #### R ENAL, URIC, MG ####[facility] Fqxmzufiih3448 [place] [address]Dr. Awildanitza Ramon EGFR-AF [place] 51 mL/min/1.73m2 Critically low >=60 [facility] Comment on above: Performed By: #### R ENAL, URIC, MG ####[facility] Twqlfzwngd8673 [place] [address]Dr. Emelina Navarro EGFR-NON AF [place] 42 mL/min/1.73m2 Critically low >=60 [facility] Comment on above: Performed By: #### R ENAL, URIC, MG ####[facility] Temwcusrgc5103 [place] [address]Dr. Emelina Navarro Glucose [Mass/Vol] 135 mg/dL Critically high 74-106 [facility] Comment on above: Performed By: #### R ENAL, URIC, MG ####[facility] Kcequztvll0037 [place] [address]Dr. Emelina Navarro Phosphate [Mass/Vol] 3.4 mg/dL Normal 2.6-4.7 [facility] Comment on above: Performed By: #### R ENAL, URIC, MG ####[facility] Ufkpbgvzaq4005 [place] [address]Dr. Awildanitza Navarro Potassium [Moles/Vol] 4.5 mmol/L Normal 3.5-5.1 [facility] Comment on above: Performed By: #### R ENAL, URIC, MG ####[facility] Nfsoeuyegr1904 [place] [place] [address]Dr. Awildanitza Navarro Sodium [Moles/Vol] 137 mmol/L Normal 136-145 [facility] Comment on above: Performed By: #### R ENAL, URIC, MG ####[facility] Dxqgzcicuw4756 [place] [address]Dr. Emelina Navarro Urea nitrogen [Mass/Vol] 26.0 mg/dL Critically high 7.0-18.0 [facility] Comment on above: Performed By: #### R ENAL, URIC, MG ####[facility] Nbxssyjilv8067 [place] [address]Dr. Awildanitza Navarro UA RANDOM W/MICROSCOPICon BACTERIA NONE SEEN Normal NONE SEEN [facility] Comment on above: Performed By: #### U AMIC ####[facility] Xtawwvcnbk4604 [place] [address]Dr. Emelina Navarro Bilirubin Ql (U) Negative Normal NEGATIVE [facility] Comment on above: Performed By: #### U AMIC ####[facility] Ncihmnuors0073 [place] [address]Dr. Emelina Navarro CAST NONE SEEN Normal NONE SEEN [facility] Comment on above: Performed By: #### U AMIC ####[facility] Mguahwmjts3423 [place] [address]Dr. Emelina Navarro Clarity (U) CLEAR Normal CLEAR [facility] Comment on above: Performed By: #### U AMIC ####[facility] Kzoyysbjui[address] [place], [place] [address]Dr. Emelina Navarro Color (U) LT. YELLOW Normal YELLOW [facility] Comment on above: Performed By: #### U AMIC ####[facility] Okjzuznoca20[address] [place], [place] [address]Dr. Emelina Navarro Crystals LM Nom (Urine sed) NONE SEEN Normal NONE SEEN [facility] Comment on above: Performed By: #### U AMIC ####[facility] Xdalhcyclt05[address] [place], [place] [address]Dr. Emelina Navarro Epithelial cells LM Ql (Urine sed) NONE SEEN Normal NONE SEEN /RARE [facility] Comment on above: Performed By: #### U AMIC ####[facility] Uyprgwecwc50[address] [place], [place] [address]Dr. Emelina Navarro Glucose Ql (U) >1000 Abnormal NEGATIVE The [facility] Comment on above: Performed By: #### U AMIC ####[facility] Jvdfjiyhcd87[address] [place], [place] [address]Dr. Emelina Navarro Hemoglobin Ql (U) Negative Normal NEGATIVE The [facility] Comment on above: Performed By: #### U AMIC ####[facility] Ffrufvokjv7777 [place] [address]Dr. Emelina Navarro Ketones Ql (U) Negative Normal NEGATIVE The [facility] Comment on above: Performed By: #### U AMIC ####[facility] Gyfezdmakv8247 [place] [address]Dr. Emelina Navarro LEUKOCYTES Negative Normal NEGATIVE [facility] Comment on above: Performed By: #### U AMIC ####[facility] Hymdvwvkcc0264 [place] [address]Dr. Emelina Navarro MUCOUS NONE SEEN Normal NONE SEEN [facility] Comment on above: Performed By: #### U AMIC ####[facility] Bvejnstyaa1175 [place] [address]Dr. Emelnia Navarro Nitrite Ql (U) Negative Normal NEGATIVE The [facility] Comment on above: Performed By: #### U AMIC ####[facility] Mpuktpkbli4128 [place] [address]Dr. Emelina Navarro pH (U) 6.0 [pH] Normal 5-9 [facility] Comment on above: Performed By: #### U AMIC ####[facility] Lujznruggs213[address] [place], [place] [address]Dr. Emelina Navarro RBC 0-2 Normal 0-2 [facility] Comment on above: Performed By: #### U AMIC ####[facility] Jagruveonu4407[address] [place], [place] [address]Dr. Emelina Navarro SPEC GRAVITY 1.010 Normal 1.005-<=1. 025 [facility] Comment on above: Performed By: #### U AMIC ####[facility] Cknezbeiev1183[address] [place], [place] [address]Dr. Emelina Navarro UA PROTEIN Negative Normal NEGATIVE/ TRACE [facility] Comment on above: Performed By: #### U AMIC ####[facility] Psqwdptetg6906 [place] [address]Dr. Emelina Navarro Urobilinogen Qn (U) 0.2 {Ashley'U}/dL Normal 0.2 - 1. 0 [facility] Comment on above: Performed By: #### U AMIC ####[facility] Fkiybhdmjr7372 [place] [address]Dr. Emelina Navarro WBC NONE SEEN Normal NONE SEEN [facility] Comment on above: Performed By: #### U AMIC ####[facility] Htxxrbdmws3082 [place] [address]Dr. Emelina Navarro URIC ACID SERUMon 09-18-2022 Urate [Mass/Vol] 9.2 mg/dL Critically high 3.5-7.2 [facility] Comment on above: Performed By: #### R ENAL, URIC, MG ####[facility] Lxdvinylsr6093 [place] [address]Dr. Emelina Navarro URINE T PROTEIN CREAT RATIOo n 09-18-2022 Protein (U) [Mass/Vol] 17.5 mg/dL Critically high <=12.0 [facility] Comment on above: Performed By: #### U RTPCR ####[facility] Dxuuhlzshf4991 [place] [address]Dr. Emelina Navarro UR PROT CREAT RAT 0.61 Normal [facility] Comment on above: Performed By: #### U RTPCR ####[facility] Aluojgmxol4695 [place] [address]Dr. Emelina Navarro URINE CREAT 28.53 mg/dL Normal 20.00-300. 00 [facility] Comment on above: Performed By: #### U RTPCR ####[facility] Yqgdhihuaa88[address] [place], [place] [address]Dr. Emelina Navarro VITAMIN D 25 OHon 09-18-2022 VIT D 25-OH 49.6 ng/mL Normal [facility] Comment on above: Performed By: #### V ANA WEISS FETIBC ####[facility] Grrmanoyhg4678 [place] [address]Dr. Emelina Navarro VIT D RANGES SEE BELOW Normal [facility] Comment on above: Result Comment: <20 ng/mL Vit D deficient 20 - <30 ng/mL Vit D insufficient 30 - 100 ng/mL Vit D sufficient >100 ng/mL Potential Toxicity Performed By: #### V ANA WEISS FETIBC ####[facility] Egrlihsdir8956 [place] [address]Dr. Emelina Navarro A1C HEMOGLOBINon 07-31-2022 HbA1c (Bld) [Mass fraction] 6.7 % [employer] Other Glucose - FINGER STICKon Glucose [Mass/Vol] 338 mg/dL [facility] [employer] Other HbA1c (Bld) [Mass fraction]o n 07-31-2022 A1C HEMOGLOBIN [facility] [employer] Other BNPon 07-19-2022 Natriuretic peptide B (Bld) [Mass/Vol] 7571.0 pg/mL Critically high <=900.0 [facility] Comment on above: Performed By: #### B MP, BNP ####[facility] Qxohjullvu1310 [place] [address]Dr. Emelina Navarro PROF CHEM 8 (BAS METB)on Anion gap [Moles/Vol] 11.6 mmol/L Normal [facility] Comment on above: Performed By: #### B MP, BNP ####[facility] Okswmcxfta029[address] [place], [place] [address]Dr. Emelina Navarro Calcium [Mass/Vol] 9.2 mg/dL Normal 8.5-10.1 [facility] Comment on above: Performed By: #### B MP, BNP ####[facility] Lqsxyeyzkk183799 [address] [place], [place] [address]Dr. Emelina Navarro Chloride [Moles/Vol] 102 mmol/L Normal 98-107 [facility] Comment on above: Performed By: #### B MP, BNP ####[facility] Ydlzkzqgvt809399 [address] [place], [place] [address]Dr. Emelina Navarro CO2 [Moles/Vol] 30.6 mmol/L Normal 21.0-32.0 [facility] Comment on above: Performed By: #### B MP, BNP ####[facility] Lvldpetogd086[address] [place], [place] [address]Dr. Emelina Navarro Creatinine [Mass/Vol] 1.72 mg/dL Critically high 0.70-1.30 [facility] Comment on above: Performed By: #### B MP, BNP ####[facility] Ohesjjpwtv566499 [address] [place], [place] [address]Dr. Emelina Navarro EGFR-AF [place] 48 mL/min/1.73m2 Critically low >=60 [facility] Comment on above: Performed By: #### B MP, BNP ####[facility] Ilpfmrqayd719799 [address] [place], [place] [address]Dr. Emelina Navarro EGFR-NON AF [place] 40 mL/min/1.73m2 Critically low >=60 [facility] Comment on above: Performed By: #### B MP, BNP ####[facility] Vxdqjdmjvd964599 [address] [place], [place] [address]Dr. Emelina Navarro Glucose [Mass/Vol] 76 mg/dL Normal 74-106 [facility] Comment on above: Performed By: #### B MP, BNP ####[facility] Zecoadulkl793299 [address] [place], [place] [address]Dr. Emelina Navarro Potassium [Moles/Vol] 4.2 mmol/L Normal 3.5-5.1 [facility] Comment on above: Performed By: #### B MP, BNP ####[facility] Oinvhcbzua646499 [address] [place], [place] [address]Dr. Emelina Navarro Sodium [Moles/Vol] 140 mmol/L Normal 136-145 [facility] Comment on above: Performed By: #### B MP, BNP ####[facility] Ynwiwznbvx314199 [address] [place], [place] [address]Dr. Emelina Navarro Urea nitrogen [Mass/Vol] 19.0 mg/dL Critically high 7.0-18.0 [facility] Comment on above: Performed By: #### B MP, BNP ####[facility] Uhbusnadth283599 [address] [place], [place] [address]Dr. Emelina Navarro Urea nitrogen/Creatinine [Mass ratio] 11.0 mg/mg Normal [facility] Comment on above: Performed By: #### B MP, BNP ####[facility] Dyigfbsyyu223699 [address] [place], [place] [address]Dr. Emelina Navarro CBC AUTO DIFFon 06-16-2022 BASO # 0.0 103/ul Normal 0.0-0.1 [facility] Comment on above: Performed By: #### C BC ####[facility] Ppwachvzas2097 [place] [phone]. Emelina Navarro Basophils/100 WBC (Bld) 0.1 % Critically low 0.2-2.0 [facility] Comment on above: Performed By: #### C BC ####[facility] Tnmidvxsoz0591 [place] [phone]. Emelina Navarro EO # 0.1 103/ul Normal 0.0-0.7 [facility] Comment on above: Performed By: #### C BC ####[facility] Jlnwrnwyjd551299 [address] [place], [place] [address]Dr. Emelina Navarro Eosinophils/100 WBC (Bld) 0.4 % Critically low 0.9-7.0 [facility] Comment on above: Performed By: #### C BC ####[facility] Azrytozwol337299 [address] [place], [place] [address]Dr. Emelina Navarro Erythrocyte distribution width (RBC) [Ratio] 17.1 % Critically high 11.0-15.0 [facility] Comment on above: Performed By: #### C BC ####[facility] Ffqakbmtkc0677[address] [place], [place] [address]Dr. Emelina Navarro Hematocrit (Bld) [Volume fraction] 44.7 % Normal 42.0-54.0 [facility] Comment on above: Performed By: #### C BC ####[facility] Bgegikkzkv6954 [place] [phone]. Emelina Navarro Hemoglobin (Bld) [Mass/Vol] 14.5 g/dL Normal 14.0-18.0 [facility] Comment on above: Performed By: #### C BC ####[facility] Lorexadxqu7210 [place] [phone]. Emelina Navarro IG # 0.07 10e3/ul Critically high 0.00-0.03 [facility] Comment on above: Performed By: #### C BC ####[facility] Fkfczzlwyn42[address] [place], [place] [address]Dr. Emelina Navarro IG % 0.4 % Normal 0.0-0.5 [facility] Comment on above: Performed By: #### C BC ####[facility] Yzbsiarixj2938 [place] [phone]. Emelina Navarro LYMPH # 2.0 103/ul Normal 1.2-3.8 [facility] Comment on above: Performed By: #### C BC ####[facility] Pxytlzgjbe8274 [place], [place] [address]Hi. Emelina Navarro Lymphocytes/100 WBC (Bld) 12.1 % Critically low 20.5-60.0 [facility] Comment on above: Performed By: #### C BC ####[facility] Mvgohlyuwh4525 [place] [phone]. Emelina Navarro MANUAL DIFF REQ NO Normal The [facility] Comment on above: Performed By: #### C BC ####[facility] Exgaquvtvk3156 [place] [phone]. Emelina Navarro MCH (RBC) [Entitic mass] 28.2 pg Normal 25.9-34.0 [facility] Comment on above: Performed By: #### C BC ####[facility] Ogmratlsnx3727 [place] [phone]. Emelina Navarro MCHC (RBC) [Mass/Vol] 32.4 g/dL Normal 29.9-35.2 [facility] Comment on above: Performed By: #### C BC ####[facility] Nbzqcnyapw4887 [place] [phone]. Emelina Navarro MCV (RBC) [Entitic vol] 86.8 fL Normal 80.0-94.0 [facility] Comment on above: Performed By: #### C BC ####[facility] Qpqjadwhtx9599 [place] [phone]. Emelina Navarro MONO # 0.7 103/ul Normal 0.3-0.8 [facility] Comment on above: Performed By: #### C BC ####[facility] Gspoqngnbj3951 [place] [phone]. Emelina Navarro Monocytes/100 WBC (Bld) 4.3 % Normal 1.7-12.0 [facility] Comment on above: Performed By: #### C BC ####[facility] Pekrhipheo1313 [place] [phone]. Emelina Navarro NEUT # 13.4 103/ul Critically high 1.4-6.5 [facility] Comment on above: Performed By: #### C BC ####[facility] Lwiahkptqj8651 [place] [phone]. Emelina Navarro Neutrophils/100 WBC (Bld) 82.7 % Critically high 43.0-75.0 [facility] Comment on above: Performed By: #### C BC ####[facility] Xpotyltvhv3037 [place] [phone]. Emelina Navarro Platelet mean volume (Bld) [Entitic vol] 9.5 fL Normal 9.5-13.5 [facility] Comment on above: Performed By: #### C BC ####[facility] Mlzfxkunvv9747 [place] [phone]. Emelina Ramon PLT 218 103/ul Normal 150-450 [facility] Comment on above: Performed By: #### C BC ####[facility] Ymqturkost8148 [place] [phone]. Emelina Ramon RBC 5.15 106/ul Normal 4.70-6.10 [facility] Comment on above: Performed By: #### C BC ####[facility] Yxbygvjvzq6272 [place] [phone]. Emelina Navarro WBC 16.2 103/ul Critically high 4.0-11.0 [facility] Comment on above: Performed By: #### C BC ####[facility] Vkbqqazpae1011 [place] [phone]. Emelina Navarro PROF 14(COMP METB)on 022 Albumin [Mass/Vol] 3.3 g/dL Critically low 3.4-5.0 [facility] Comment on above: Performed By: #### C MP ####[facility] Tbvenweozu8833 [place] [phone]. Emelina Navarro Albumin/Globulin [Mass ratio] 0.8 {ratio} Normal [facility] Comment on above: Performed By: #### C MP ####[facility] Rricsbwazg9262 [place] [phone]. Emelina Navarro ALP [Catalytic activity/Vol] 81 U/L Normal 46-116 [facility] Comment on above: Performed By: #### C MP ####[facility] Eqotdoyazn5070 [place] [phone]. Emelina Navarro ALT [Catalytic activity/Vol] 34 U/L Normal 16-63 [facility] Comment on above: Performed By: #### C MP ####[facility] Vpmsgmdnim6146 [place] [phone]. Emelina Navarro Anion gap [Moles/Vol] 14.1 mmol/L Normal [facility] Comment on above: Performed By: #### C MP ####[facility] Hpkgqshnxw3584[address] [place], [place] [address]Dr. Emelina Navarro AST [Catalytic activity/Vol] 22 U/L Normal 15-37 [facility] Comment on above: Performed By: #### C MP ####[facility] Htnvciiuwv0108[address] [place], [place] [address]Dr. Emelina Navarro Bilirubin [Mass/Vol] 1.0 mg/dL Normal 0.2-1.0 [facility] Comment on above: Performed By: #### C MP ####[facility] Wxgwmrtwci3393[address] [place], [place] [address]Dr. Emelina Navarro Calcium [Mass/Vol] 8.6 mg/dL Normal 8.5-10.1 [facility] Comment on above: Performed By: #### C MP ####[facility] Wwdvkmzfqc2621 [place] [address]Dr. Emelina Navarro Chloride [Moles/Vol] 98 mmol/L Normal 98-107 [facility] Comment on above: Performed By: #### C MP ####[facility] Oyqxybuseh5334 [place] [address]Dr. Emelina Navarro CO2 [Moles/Vol] 28.0 mmol/L Normal 21.0-32.0 [facility] Comment on above: Performed By: #### C MP ####[facility] Itiwnskwkl1944 [place] [phone]. Emelina Navarro Creatinine [Mass/Vol] 1.83 mg/dL Critically high 0.70-1.30 [facility] Comment on above: Performed By: #### C MP ####[facility] Ollnfrubcs0845 [place], [place] [address]Tw. Emelina Navarro EGFR-AF [place] 45 mL/min/1.73m2 Critically low >=60 [facility] Comment on above: Performed By: #### C MP ####[facility] Gbkttttcbf1694 [place] [phone]. Emelina Navarro EGFR-NON AF [place] 37 mL/min/1.73m2 Critically low >=60 [facility] Comment on above: Performed By: #### C MP ####[facility] Hgjvxpbmbf8127 [place] [phone]. Emelina Navarro Globulin (S) [Mass/Vol] 4.3 g/dL Normal [facility] Comment on above: Performed By: #### C MP ####[facility] Jmqjwgaoko7140 [place] [phone]. Emelina Navarro Glucose [Mass/Vol] 173 mg/dL Critically high 74-106 [facility] Comment on above: Performed By: #### C MP ####[facility] Cttpbpewsm8408 [place] [phone]. Emelina Navarro Potassium [Moles/Vol] 4.1 mmol/L Normal 3.5-5.1 [facility] Comment on above: Performed By: #### C MP ####[facility] Aqaprigwur7481 [place] [phone]. Emelina Navarro Protein [Mass/Vol] 7.6 g/dL Normal 6.4-8.2 [facility] Comment on above: Performed By: #### C MP ####[facility] Elmklagwhv0775 [place] [phone]. Emelina Navarro Sodium [Moles/Vol] 136 mmol/L Normal 136-145 [facility] Comment on above: Performed By: #### C MP ####[facility] Tdptagtdia4116 [place] [address]Dr. Emelina Navarro Urea nitrogen [Mass/Vol] 46.0 mg/dL Critically high 7.0-18.0 [facility] Comment on above: Performed By: #### C MP ####[facility] Iebjqxjxgo8857[address] [place], [place] [address]Dr. Emelina Navarro Urea nitrogen/Creatinine [Mass ratio] 25.1 mg/mg Normal [facility] Comment on above: Performed By: #### C MP ####[facility] Tkwikfuevh7418[address] [place], [place] [address]Dr. Emelina Navarro PROTIMEon 06-16-2022 INR Coag (PPP) [Relative time] 2.12 {INR} Normal [facility] Comment on above: Performed By: #### P T ####[facility] Bzmvyvrsjq612[address] [place], [place] [address]Dr. Emelina Navarro INR GUIDELINES SEE BELOW Normal [facility] Comment on above: Result Comment: WENDY RED INR: 2.0 - 3.0 CONDITIONS NOT LISTED BELOW 2.5 - 3.5 FOR PROSTHETIC HEART VALVE REPLACEMENT 2.5 - 3.5 RECURRENT THROMBOSIS Performed By: #### P T ####[facility] Xrtsswjubf024[address] [place], [place] [address]Dr. Emelina Navarro PT Coag (PPP) [Time] 21.8 s Critically high 9.0-11.6 [facility] Comment on above: Performed By: #### P T ####[facility] Dssldzmoze5104[address] [place], [place] [address]Dr. Emelina Navarro BNPon 06-15-2022 Natriuretic peptide B (Bld) [Mass/Vol] 4304.0 pg/mL Critically high <=900.0 [facility] Comment on above: Performed By: #### B HORTICULTURAL TECHNICAL OFFICER ####[facility] Ijsaurzaaf0996[address] [place], [place] [address]Dr. Emelina Navarro CBC AUTO DIFFon 06-15-2022 BASO # 0.0 103/ul Normal 0.0-0.1 [facility] Comment on above: Performed By: #### C BC ####[facility] Pjllamsyny9162 [place] [phone]. Emelina Navarro Basophils/100 WBC (Bld) 0.1 % Critically low 0.2-2.0 [facility] Comment on above: Performed By: #### C BC ####[facility] Zyxmwjlyvr4363 [place] [phone]. Emelina Navarro EO # 0.0 103/ul Normal 0.0-0.7 [facility] Comment on above: Performed By: #### C BC ####[facility] Jbougbsuyv[address] [place], [place] [address]Dr. Emelina Navarro Eosinophils/100 WBC (Bld) 0.1 % Critically low 0.9-7.0 [facility] Comment on above: Performed By: #### C BC ####[facility] Szjmbinimb912499 [address] [place], [place] [address]Dr. Emelina Navarro Erythrocyte distribution width (RBC) [Ratio] 17.1 % Critically high 11.0-15.0 [facility] Comment on above: Performed By: #### C BC ####[facility] Amtumvcvkm0315[address] [place], [place] [address]Dr. Emelina Navarro Hematocrit (Bld) [Volume fraction] 40.9 % Critically low 42.0-54.0 [facility] Comment on above: Performed By: #### C BC ####[facility] Vpoknyooqt1087 [place] [phone]. Emelina Navarro Hemoglobin (Bld) [Mass/Vol] 13.4 g/dL Critically low 14.0-18.0 [facility] Comment on above: Performed By: #### C BC ####[facility] Yfgvnhbyje5601 [place] [phone]. Emelina Navarro IG # 0.17 10e3/ul Critically high 0.00-0.03 [facility] Comment on above: Performed By: #### C BC ####[facility] Sihdfzzpgv68[address] [place], [place] [address]Dr. Emelina Navarro IG % 0.8 % Critically high 0.0-0.5 [facility] Comment on above: Performed By: #### C BC ####[facility] Uicctkuicq7491 [place] [phone]. Emelina Navarro LYMPH # 1.4 103/ul Normal 1.2-3.8 [facility] Comment on above: Performed By: #### C BC ####[facility] Tmeqkgqltt8655 [place] [phone]. Emelina Ramon Lymphocytes/100 WBC (Bld) 6.8 % Critically low 20.5-60.0 [facility] Comment on above: Performed By: #### C BC ####[facility] Szrqynkwgi4421 [place] [address]Dr. Awildanitza Navarro MANUAL DIFF REQ NO Normal [facility] Comment on above: Performed By: #### C BC ####[facility] Qcanebxxfx2955 [place] [phone]. Emelina Ramon MCH (RBC) [Entitic mass] 28.6 pg Normal 25.9-34.0 [facility] Comment on above: Performed By: #### C BC ####[facility] Feoqeonuvo0428 [place] [phone]. Emelina Navarro MCHC (RBC) [Mass/Vol] 32.8 g/dL Normal 29.9-35.2 [facility] Comment on above: Performed By: #### C BC ####[facility] Fwxhedisjj3808 [place] [phone]. Awildanitza Ramon MCV (RBC) [Entitic vol] 87.2 fL Normal 80.0-94.0 [facility] Comment on above: Performed By: #### C BC ####[facility] Cpblnnezue9901 [place] [phone]. Emelina Navarro MONO # 0.8 103/ul Normal 0.3-0.8 [facility] Comment on above: Performed By: #### C BC ####[facility] Cginbaorrn3650 [place] [phone]. Emelina Ramon Monocytes/100 WBC (Bld) 3.8 % Normal 1.7-12.0 [facility] Comment on above: Performed By: #### C BC ####[facility] Somyhlkcwy2890 [place] [phone]. Emelina Navarro NEUT # 17.9 103/ul Critically high 1.4-6.5 [facility] Comment on above: Performed By: #### C BC ####[facility] Dwwndaxgsx3451 [place] [phone]. Emelina Ramon Neutrophils/100 WBC (Bld) 88.4 % Critically high 43.0-75.0 [facility] Comment on above: Performed By: #### C BC ####[facility] Wrmeszmegm4824 [place] [phone]. Emelina Navarro Platelet mean volume (Bld) [Entitic vol] 9.7 fL Normal 9.5-13.5 [facility] Comment on above: Performed By: #### C BC ####[facility] Ylatudjrpz3116 [place] [phone]. Emelina Navarro PLT 211 103/ul Normal 150-450 [facility] Comment on above: Performed By: #### C BC ####[facility] Ipkkhzchrk0586 [place] [phone]. Emelina Navarro RBC 4.69 106/ul Critically low 4.70-6.10 [facility] Comment on above: Performed By: #### C BC ####[facility] Qfeqliebjm0883 [place] [phone]. Awildanitza Navarro WBC 20.2 103/ul Critically high 4.0-11.0 [facility] Comment on above: Performed By: #### C BC ####[facility] Seuzcxeoyj9778 [place] [phone]. Emelina Navarro PROF 14(COMP METB)on 022 Albumin [Mass/Vol] 2.9 g/dL Critically low 3.4-5.0 [facility] Comment on above: Performed By: #### C MP ####[facility] Syfbgpxwnm[address] [place] [address]Dr. Emelina Navarro Albumin/Globulin [Mass ratio] 0.7 {ratio} Normal [facility] Comment on above: Performed By: #### C MP ####[facility] Aigoqxlruj0968 [place] [phone]. Emelina Navarro ALP [Catalytic activity/Vol] 77 U/L Normal 46-116 [facility] Comment on above: Performed By: #### C MP ####[facility] Kddfxjtgdd6234 [place] [phone]. Emelina Navarro ALT [Catalytic activity/Vol] 26 U/L Normal 16-63 [facility] Comment on above: Performed By: #### C MP ####[facility] Ukceshtsvc32[address] [place] [address]Dr. Emelina Navarro Anion gap [Moles/Vol] 13.2 mmol/L Normal [facility] Comment on above: Performed By: #### C MP ####[facility] Vojulejqsv[address] [place], [place] [address]Dr. Emelina Navarro AST [Catalytic activity/Vol] 18 U/L Normal 15-37 [facility] Comment on above: Performed By: #### C MP ####[facility] Xntemdnwon[address] [place], [place] [address]Dr. Emelina Navarro Bilirubin [Mass/Vol] 0.8 mg/dL Normal 0.2-1.0 [facility] Comment on above: Performed By: #### C MP ####[facility] Ybyubufnge40[address] [place], [place] [address]Dr. Emelina Navarro Calcium [Mass/Vol] 8.4 mg/dL Critically low 8.5-10.1 [facility] Comment on above: Performed By: #### C MP ####[facility] Diyzxynuhf25[address] [place], [place] [address]Dr. Emelina Navarro Chloride [Moles/Vol] 101 mmol/L Normal 98-107 [facility] Comment on above: Performed By: #### C MP ####[facility] Gwplhwfwht36[address] [place], [place] [address]Dr. Emelina Navarro CO2 [Moles/Vol] 27.9 mmol/L Normal 21.0-32.0 [facility] Comment on above: Performed By: #### C MP ####[facility] Qpvtunhepo3019 [place] [phone]. Emelina Navarro Creatinine [Mass/Vol] 1.90 mg/dL Critically high 0.70-1.30 [facility] Comment on above: Performed By: #### C MP ####[facility] Pfvkjjkhnv7437 [place] [phone]. Emelina Navarro EGFR-AF [place] 43 mL/min/1.73m2 Critically low >=60 [facility] Comment on above: Performed By: #### C MP ####[facility] Ikluavhtks1210 [place] [phone]. Emelina Navarro EGFR-NON AF [place] 36 mL/min/1.73m2 Critically low >=60 [facility] Comment on above: Performed By: #### C MP ####[facility] Tryrrmagzx7694 [place] [address]Dr. Emelina Navarro Globulin (S) [Mass/Vol] 3.9 g/dL Normal [facility] Comment on above: Performed By: #### C MP ####[facility] Gzeldoskbc4197 [place] [address]Dr. Eemlina Navarro Glucose [Mass/Vol] 175 mg/dL Critically high 74-106 [facility] Comment on above: Performed By: #### C MP ####[facility] Cinmmdznti3306 [place] [phone]. Emelina Navarro Potassium [Moles/Vol] 4.1 mmol/L Normal 3.5-5.1 [facility] Comment on above: Performed By: #### C MP ####[facility] Ejwxpgnpdp4935 [place] [phone]. Emelina Navarro Protein [Mass/Vol] 6.8 g/dL Normal 6.4-8.2 [facility] Comment on above: Performed By: #### C MP ####[facility] Issjoyvzpc6309 [place] [phone]. Emelina Navarro Sodium [Moles/Vol] 138 mmol/L Normal 136-145 [facility] Comment on above: Performed By: #### C MP ####[facility] Tzcnwknidr6001 [place] [address]Dr. Emelina Navarro Urea nitrogen [Mass/Vol] 46.0 mg/dL Critically high 7.0-18.0 [facility] Comment on above: Performed By: #### C MP ####[facility] Qjpahydswo8656 [place] [address]Dr. Emelina Navarro Urea nitrogen/Creatinine [Mass ratio] 24.2 mg/mg Normal [facility] Comment on above: Performed By: #### C MP ####[facility] Jtwotylwou7[address] [place], [place] [address]Dr. Emelina Navarro PROTIMEon 06-15-2022 INR Coag (PPP) [Relative time] 3.34 {INR} Normal [facility] Comment on above: Performed By: #### P T ####[facility] Czbekcfbuw04[address] [place], [place] [address]Dr. Emelina Navarro INR GUIDELINES SEE BELOW Normal [facility] Comment on above: Result Comment: WENDY RED INR: 2.0 - 3.0 CONDITIONS NOT LISTED BELOW 2.5 - 3.5 FOR PROSTHETIC HEART VALVE REPLACEMENT 2.5 - 3.5 RECURRENT THROMBOSIS Performed By: #### P T ####[facility] Gojgzfvnpy3326[address] [place], [place] [address]Dr. Emelina Navarro PT Coag (PPP) [Time] 33.3 s Critically high 9.0-11.6 [facility] Comment on above: Performed By: #### P T ####[facility] Tvjxkazhnl[address] [place], [place] [address]Dr. Emelina Navarro CBC AUTO DIFFon 06-14-2022 BASO # 0.0 103/ul Normal 0.0-0.1 [facility] Comment on above: Performed By: #### C BC ####[facility] Lwtdoluzfr62[address] [place], [place] [address]Dr. Emelina Navarro Basophils/100 WBC (Bld) 0.1 % Critically low 0.2-2.0 [facility] Comment on above: Performed By: #### C BC ####[facility] Unyisnluag8561 [place] [phone]. Emelina Navarro EO # 0.0 103/ul Normal 0.0-0.7 [facility] Comment on above: Performed By: #### C BC ####[facility] Ldyyvvclnz8441 [place] [address]Dr. Emelina Navarro Eosinophils/100 WBC (Bld) 0.0 % Critically low 0.9-7.0 [facility] Comment on above: Performed By: #### C BC ####[facility] Jubxpilzxt5265 [place] [address]Dr. Emelina Navarro Erythrocyte distribution width (RBC) [Ratio] 17.0 % Critically high 11.0-15.0 [facility] Comment on above: Performed By: #### C BC ####[facility] Jvyiuommki9210[address] [place], [place] [address]Dr. Emelina Navarro Hematocrit (Bld) [Volume fraction] 40.2 % Critically low 42.0-54.0 [facility] Comment on above: Performed By: #### C BC ####[facility] Clfdboyygg4687[address] [place], [place] [address]Dr. Emelina Navarro Hemoglobin (Bld) [Mass/Vol] 13.0 g/dL Critically low 14.0-18.0 [facility] Comment on above: Performed By: #### C BC ####[facility] Qxupafflsp6694 [place] [address]Dr. Emelina Navarro IG # 0.18 10e3/ul Critically high 0.00-0.03 [facility] Comment on above: Performed By: #### C BC ####[facility] Opytirdttz9826 [place] [address]Dr. Emelina Navarro IG % 0.8 % Critically high 0.0-0.5 [facility] Comment on above: Performed By: #### C BC ####[facility] Qxaonlwqja498[address] [place], [place] [address]Dr. Awildanitza Navarro LYMPH # 1.1 103/ul Critically low 1.2-3.8 [facility] Comment on above: Performed By: #### C BC ####[facility] Ahnjgyjujt4282 [place] [phone]. Emelina Navarro Lymphocytes/100 WBC (Bld) 5.4 % Critically low 20.5-60.0 [facility] Comment on above: Performed By: #### C BC ####[facility] Yafhidiheb4146 [place] [phone]. Emelina Ramon MANUAL DIFF REQ NO Normal [facility] Comment on above: Performed By: #### C BC ####[facility] Tabujikmfz9341 [place] [phone]. Emelina Ramon MCH (RBC) [Entitic mass] 28.4 pg Normal 25.9-34.0 [facility] Comment on above: Performed By: #### C BC ####[facility] Ogqbrrmjbw2116 [place] [address]Dr. Emelina Ramon MCHC (RBC) [Mass/Vol] 32.3 g/dL Normal 29.9-35.2 [facility] Comment on above: Performed By: #### C BC ####[facility] Uusmdixcql5096 [place] [phone]. Emelina Ramon MCV (RBC) [Entitic vol] 88.0 fL Normal 80.0-94.0 [facility] Comment on above: Performed By: #### C BC ####[facility] Mxebcbbzkw7986 [place] [address]Dr. Awildanitza Ramon MONO # 0.6 103/ul Normal 0.3-0.8 [facility] Comment on above: Performed By: #### C BC ####[facility] Xfciyoddud6454 [place] [phone]. Awildanitza Navarro Monocytes/100 WBC (Bld) 3.0 % Normal 1.7-12.0 [facility] Comment on above: Performed By: #### C BC ####[facility] Tbpnavzssc14[address] [place], [place] [address]Dr. Emelina Navarro NEUT # 19.3 103/ul Critically high 1.4-6.5 [facility] Comment on above: Performed By: #### C BC ####[facility] Kwygdbchtq5244 [place] [phone]. Emelina Navarro Neutrophils/100 WBC (Bld) 90.7 % Critically high 43.0-75.0 [facility] Comment on above: Performed By: #### C BC ####[facility] Znuqivkbwr5705 [place] [phone]. Emelina Navarro Platelet mean volume (Bld) [Entitic vol] 10.6 fL Normal 9.5-13.5 [facility] Comment on above: Performed By: #### C BC ####[facility] Rjldgmoajl1881 [place] [phone]. Emelina Navarro PLT 191 103/ul Normal 150-450 [facility] Comment on above: Performed By: #### C BC ####[facility] Dknlywoajy7389 [place] [phone]. Emelina Navarro RBC 4.57 106/ul Critically low 4.70-6.10 [facility] Comment on above: Performed By: #### C BC ####[facility] Egxhgoigxm1335 [place] [phone]. Emelina Navarro WBC 21.3 103/ul Critically high 4.0-11.0 [facility] Comment on above: Performed By: #### C BC ####[facility] Pyfqfmgnfn4022 [place] [phone]. Emelina Navarro PROF 14(COMP METB)on 022 Albumin [Mass/Vol] 2.5 g/dL Critically low 3.4-5.0 [facility] Comment on above: Performed By: #### C MP ####[facility] Gnzslbqdgr8307 [place] [address]Dr. Emelina Navarro Albumin/Globulin [Mass ratio] 0.6 {ratio} Normal [facility] Comment on above: Performed By: #### C MP ####[facility] Xhxowvxsqy3159 [place] [phone]. Emelina Navarro ALP [Catalytic activity/Vol] 77 U/L Normal 46-116 [facility] Comment on above: Performed By: #### C MP ####[facility] Kbbxlztaus7848 [place], [place] [address]Mq. Emelina Navarro ALT [Catalytic activity/Vol] 25 U/L Normal 16-63 [facility] Comment on above: Performed By: #### C MP ####[facility] Dqitjwogyr4727 [place], [place] [address]Il. Emelina Navarro Anion gap [Moles/Vol] 12.5 mmol/L Normal [facility] Comment on above: Performed By: #### C MP ####[facility] Rvnzjpofzf7757 [place] [phone]. Emelina Navarro AST [Catalytic activity/Vol] 34 U/L Normal 15-37 [facility] Comment on above: Performed By: #### C MP ####[facility] Kfshcfmeih4541 [place] [phone]. Emelina Navarro Bilirubin [Mass/Vol] 0.9 mg/dL Normal 0.2-1.0 [facility] Comment on above: Performed By: #### C MP ####[facility] Fuvffpbkpi0307 [place] [phone]. Emelina Navarro Calcium [Mass/Vol] 8.1 mg/dL Critically low 8.5-10.1 [facility] Comment on above: Performed By: #### C MP ####[facility] Rigqjeumff6179 [place] [phone]. Emelina Navarro Chloride [Moles/Vol] 101 mmol/L Normal 98-107 [facility] Comment on above: Performed By: #### C MP ####[facility] Fttmhbgzyu8498 [place] [phone]. Emelina Navarro CO2 [Moles/Vol] 24.8 mmol/L Normal 21.0-32.0 [facility] Comment on above: Performed By: #### C MP ####[facility] Fccfzoenqt5531 [place] [phone]. Emelina Navarro Creatinine [Mass/Vol] 1.93 mg/dL Critically high 0.70-1.30 [facility] Comment on above: Performed By: #### C MP ####[facility] Ckcihyqtjf1400 [place], [place] [address]Fk. Emelina Navarro EGFR-AF [place] 42 mL/min/1.73m2 Critically low >=60 [facility] Comment on above: Performed By: #### C MP ####[facility] Ufjmdzuate8906 [place], [place] [address]Tq. Emelina Navarro EGFR-NON AF [place] 35 mL/min/1.73m2 Critically low >=60 [facility] Comment on above: Performed By: #### C MP ####[facility] Utrrtnkncq8502 [place] [phone]. Emelina Navarro Globulin (S) [Mass/Vol] 3.9 g/dL Normal [facility] Comment on above: Performed By: #### C MP ####[facility] Wkmnpuoxet8487 [place] [phone]. Emelina Navarro Glucose [Mass/Vol] 236 mg/dL Critically high 74-106 [facility] Comment on above: Performed By: #### C MP ####[facility] Lxqsgvalxy1721 [place] [phone]. Emelina Navarro Potassium [Moles/Vol] 5.3 mmol/L Critically high 3.5-5.1 [facility] Comment on above: Performed By: #### C MP ####[facility] Mtlippqgjm8225 [place] [phone]. Emelina Navarro Protein [Mass/Vol] 6.4 g/dL Normal 6.4-8.2 [facility] Comment on above: Performed By: #### C MP ####[facility] Zcyhabngip1546 [place] [phone]. Emelina Navarro Sodium [Moles/Vol] 133 mmol/L Critically low 136-145 [facility] Comment on above: Performed By: #### C MP ####[facility] Kgbavbsisg7038 [place] [phone]. Emelina Navarro Urea nitrogen [Mass/Vol] 43.0 mg/dL Critically high 7.0-18.0 [facility] Comment on above: Performed By: #### C MP ####[facility] Ialkmutjtb9172 [place] [address]Dr. Emelina Navarro Urea nitrogen/Creatinine [Mass ratio] 22.3 mg/mg Normal [facility] Comment on above: Performed By: #### C MP ####[facility] Bnfzaqsdjr9022 [place] [address]Dr. Emelina Navarro PROTIMEon 06-14-2022 INR Coag (PPP) [Relative time] 4.39 {INR} Critically high [facility] Comment on above: Performed By: #### P T ####[facility] Ppecfjssmb16[address] [place], [place] [address]Dr. Emelina Navarro INR GUIDELINES SEE BELOW Normal [facility] Comment on above: Result Comment: WENDY RED INR: 2.0 - 3.0 CONDITIONS NOT LISTED BELOW 2.5 - 3.5 FOR PROSTHETIC HEART VALVE REPLACEMENT 2.5 - 3.5 RECURRENT THROMBOSIS Performed By: #### P T ####[facility] Nmhwvygdku5404[address] [place], [place] [address]Dr. Emelina Navarro PT Coag (PPP) [Time] 43.0 s Critically high 9.0-11.6 [facility] Comment on above: Performed By: #### P T ####[facility] Szunipkxjh858[address] [place], [place] [address]Dr. Emelina Navarro XR CHEST 1 Von 06-14-2022 XR CHEST 1 V Normal [facility] BNPon 06-13-2022 Natriuretic peptide B (Bld) [Mass/Vol] 9889.0 pg/mL Critically high <=900.0 [facility] Comment on above: Performed By: #### B MP, BNP ####[facility] Rrggluynwr1607[address] [place], [place] [address]Dr. Emelina Navarro CBC AUTO DIFFon 06-13-2022 BASO # 0.0 103/ul Normal 0.0-0.1 [facility] Comment on above: Performed By: #### C BC ####[facility] Awftozauxq154[address] [place], [place] [address]DrWesley Navarro Basophils/100 WBC (Bld) 0.1 % Critically low 0.2-2.0 [facility] Comment on above: Performed By: #### C BC ####[facility] Gohjeojqvb9738 [place] [address]Dr. Emelina Navarro EO # 0.0 103/ul Normal 0.0-0.7 [facility] Comment on above: Performed By: #### C BC ####[facility] Wddardzmxk1459 [place] [address]Dr. Emelina Ramon Eosinophils/100 WBC (Bld) 0.0 % Critically low 0.9-7.0 [facility] Comment on above: Performed By: #### C BC ####[facility] Yzxczxdqqv75[address] [place], [place] [address]Dr. Awildanitza Navarro Erythrocyte distribution width (RBC) [Ratio] 17.4 % Critically high 11.0-15.0 [facility] Comment on above: Performed By: #### C BC ####[facility] Zvsqrurhkw9730[address] [place], [place] [address]DrWesley Emelina Navarro Hematocrit (Bld) [Volume fraction] 43.5 % Normal 42.0-54.0 [facility] Comment on above: Performed By: #### C BC ####[facility] Rjagfvxvyk3415[address] [place], [place] [address]DrWesley Emelina Navarro Hemoglobin (Bld) [Mass/Vol] 14.1 g/dL Normal 14.0-18.0 [facility] Comment on above: Performed By: #### C BC ####[facility] Qyvlesyerf509899 [address] [place], [place] [address]Dr. Awildanitza Navarro IG # 0.15 10e3/ul Critically high 0.00-0.03 [facility] Comment on above: Performed By: #### C BC ####[facility] Llivbrlhkr021199 [address] [place], [place] [address]Dr. Emelina Navarro IG % 0.8 % Critically high 0.0-0.5 [facility] Comment on above: Performed By: #### C BC ####[facility] Acwcvclwhc802[address] [place], [place] [address]DrWesley Navarro LYMPH # 0.9 103/ul Critically low 1.2-3.8 [facility] Comment on above: Performed By: #### C BC ####[facility] Scibksrwai6992 [place] [address]DrWesley Navarro Lymphocytes/100 WBC (Bld) 5.0 % Critically low 20.5-60.0 [facility] Comment on above: Performed By: #### C BC ####[facility] Ocxusjrzwa8052 [place] [address]DrWesley Navarro MANUAL DIFF REQ NO Normal [facility] Comment on above: Performed By: #### C BC ####[facility] Ktupnukfii4843 [place] [address]Dr. Emelina Navarro MCH (RBC) [Entitic mass] 28.8 pg Normal 25.9-34.0 [facility] Comment on above: Performed By: #### C BC ####[facility] Niwhfgpnus3108[address] [place], [place] [address]DrWesley Navarro MCHC (RBC) [Mass/Vol] 32.4 g/dL Normal 29.9-35.2 [facility] Comment on above: Performed By: #### C BC ####[facility] Axfgqakswu5113[address] [place], [place] [address]DrWesley Navarro MCV (RBC) [Entitic vol] 89.0 fL Normal 80.0-94.0 [facility] Comment on above: Performed By: #### C BC ####[facility] Mrnongrxef236199 [address] [place], [place] [address]DrWesley Navarro MONO # 0.1 103/ul Critically low 0.3-0.8 [facility] Comment on above: Performed By: #### C BC ####[facility] Snfzkddihd749799 [address] [place], [place] [address]DrWesley Navarro Monocytes/100 WBC (Bld) 0.5 % Critically low 1.7-12.0 [facility] Comment on above: Performed By: #### C BC ####[facility] Cnyhxasjhv987[address] [place], [place] [address]DrWesley Navarro NEUT # 17.4 103/ul Critically high 1.4-6.5 [facility] Comment on above: Performed By: #### C BC ####[facility] Eqvcwmoxgf8230 [place] [address]Dr. Emelina Navarro Neutrophils/100 WBC (Bld) 93.6 % Critically high 43.0-75.0 [facility] Comment on above: Performed By: #### C BC ####[facility] Gzwkimiide4277 [place] [address]Dr. Emelina Navarro Platelet mean volume (Bld) [Entitic vol] 9.8 fL Normal 9.5-13.5 [facility] Comment on above: Performed By: #### C BC ####[facility] Ezkiiefkca6722 [place] [address]Dr. Emelina Navarro PLT 186 103/ul Normal 150-450 [facility] Comment on above: Performed By: #### C BC ####[facility] Znslzvadwk0980[address] [place], [place] [address]Dr. Emelina Navarro RBC 4.89 106/ul Normal 4.70-6.10 [facility] Comment on above: Performed By: #### C BC ####[facility] Tllldmqawa9753 [place] [address]Dr. Emelina Navarro WBC 18.6 103/ul Critically high 4.0-11.0 [facility] Comment on above: Performed By: #### C BC ####[facility] Bdgyctthqs7648[address] [place], [place] [address]Dr. Emelina Navarro CT CHEST WO CONon 06-13-2022 CT CHEST WO CON Normal [facility] CULTURE SPUTUMon 06-13-2022 CULTURE SPUTUM Culture Observations : NORMAL RESPIRATORY CEDRIC. Normal [facility] Comment on above: Performed By: #### S PUTCX ####[facility] Yuaypnkumm313[address] [place], [place] [address]Dr. Emelina Navarro ECHOCARDIO M/2D COMPLETEon 0 06-13-2022 ECHOCARDIO M/2D COMPLETE Normal [facility] POINT OF CARE GLUCOSEon 07-2 Glucose [Mass/Vol] 255 mg/dL Critically high 74-106 [facility] Comment on above: Performed By: #### P OCGLUC ####[facility] Dsqzojaato5996[address] [place], [place] [address]Dr. Awildanitza Navarro Glucose [Mass/Vol] 408 mg/dL Critically high 74-106 [facility] Comment on above: Performed By: #### P OCGLUC ####[facility] Mxpxazfbfr9268[address] [place], [place] [address]Dr. Emelina Navarro PROF CHEM 8 (BAS METB)on Anion gap [Moles/Vol] 14.7 mmol/L Normal [facility] Comment on above: Performed By: #### B MP, BNP ####[facility] Mioxspbrnl894399 [address] [place], [place] [address]Dr. Emelina Navarro Calcium [Mass/Vol] 8.3 mg/dL Critically low 8.5-10.1 [facility] Comment on above: Performed By: #### B MP, BNP ####[facility] Xhekpumryg886[address] [place], [place] [address]Dr. Emelina Navarro Chloride [Moles/Vol] 102 mmol/L Normal 98-107 [facility] Comment on above: Performed By: #### B MP, BNP ####[facility] Afgaacazwr841199 [address] [place], [place] [address]Dr. Emelina Navarro CO2 [Moles/Vol] 26.0 mmol/L Normal 21.0-32.0 [facility] Comment on above: Performed By: #### B MP, BNP ####[facility] Maapebwwuv511899 [address] [place], [place] [address]Dr. Emelina Navraro Creatinine [Mass/Vol] 2.07 mg/dL Critically high 0.70-1.30 [facility] Comment on above: Performed By: #### B MP, BNP ####[facility] Inpnvxgrry340299 [address] [place], [place] [address]Dr. Emelina Navarro EGFR-AF [place] 39 mL/min/1.73m2 Critically low >=60 [facility] Comment on above: Performed By: #### B MP, BNP ####[facility] Cdtoozzbrj6288 [place] [address]Dr. Emelina Navarro EGFR-NON AF [place] 32 mL/min/1.73m2 Critically low >=60 [facility] Comment on above: Performed By: #### B MP, BNP ####[facility] Eyqhlvedon4517 [place] [address]Dr. Emelina Navarro Glucose [Mass/Vol] 245 mg/dL Critically high 74-106 [facility] Comment on above: Performed By: #### B MP, BNP ####[facility] Kfydihddai4380[address] [place], [place] [address]Dr. Emelina Navarro Potassium [Moles/Vol] 4.7 mmol/L Normal 3.5-5.1 [facility] Comment on above: Performed By: #### B MP, BNP ####[facility] Zfgpeywecv997299 [address] [place], [place] [address]Dr. Emelina Navarro Sodium [Moles/Vol] 138 mmol/L Normal 136-145 [facility] Comment on above: Performed By: #### B MP, BNP ####[facility] Nmvolwjlxx7060[address] [place], [place] [address]Dr. Emelina Navarro Urea nitrogen [Mass/Vol] 30.0 mg/dL Critically high 7.0-18.0 [facility] Comment on above: Performed By: #### B MP, BNP ####[facility] Cjxqirzzlr7746[address] [place], [place] [address]Dr. Emelina Navarro Urea nitrogen/Creatinine [Mass ratio] 14.5 mg/mg Normal [facility] Comment on above: Performed By: #### B MP, BNP ####[facility] Qnirojmgtl509[address] [place], [place] [address]Dr. Emelina Navarro PROTIMEon 06-13-2022 INR Coag (PPP) [Relative time] 3.59 {INR} Normal [facility] Comment on above: Performed By: #### P T ####[facility] Zxcrgcculp0137[address] [place], [place] [address]Dr. Emelina Navarro INR GUIDELINES SEE BELOW Normal [facility] Comment on above: Result Comment: WENDY RED INR: 2.0 - 3.0 CONDITIONS NOT LISTED BELOW 2.5 - 3.5 FOR PROSTHETIC HEART VALVE REPLACEMENT 2.5 - 3.5 RECURRENT THROMBOSIS Performed By: #### P T ####[facility] Klmldwzchc8[address] [place], [place] [address]Dr. Emelina Navarro PT Coag (PPP) [Time] 35.7 s Critically high 9.0-11.6 [facility] Comment on above: Performed By: #### P T ####[facility] Lhxrihbifq[address] [place], [place] [address]Dr. Emelina Navarro SPUTUM GRAM STAINon 06-13-20 COMMENTS Normal [facility] Comment on above: Performed By: #### S PUTGS ####[facility] Giptsdzoya08[address] [place], [place] [address]Dr. Emelina Navarro DIPHTHEROIDS Normal [facility] Comment on above: Performed By: #### S PUTGS ####[facility] Sdpvxmtflu4236[address] [place], [place] [address]Dr. Emelina Navarro EPITHELIALS <25 Normal [facility] Comment on above: Performed By: #### S PUTGS ####[facility] Cbpajfbbiz1323[address] [place], [place] [address]Dr. Emelina Navarro FUNGAL ELEMENTS Normal The [facility] Comment on above: Performed By: #### S PUTGS ####[facility] Hqudneenna8880[address] [place], [place] [address]Dr. Emelina Naavrro GRAM NEG BACILLI Normal [facility] Comment on above: Performed By: #### S PUTGS ####[facility] Irrcwdqxvs5840[address] [place], [place] [address]Dr. Emelina Navarro GRAM NEG DIPPLOCOCCI Normal [facility] Comment on above: Performed By: #### S PUTGS ####[facility] Nevtgggerd7370[address] [place], [place] [address]Dr. Emelina Navarro GRAM POS BACILLI Normal [facility] Comment on above: Performed By: #### S PUTGS ####[facility] Gurlnnhkog1873[address] [place], [place] [address]Dr. Emelina Navarro GRAM POSITIVE COCCI RARE Normal The [facility] Comment on above: Performed By: #### S PUTGS ####[facility] Dzekbgdhgd[address] [place], [place] [address]Dr. Emelina Navarro WBC (Bld) [#/Vol] 10*3/uL Normal The [facility] Comment on above: Performed By: #### S PUTGS ####[facility] Srckxmsxtd8542[address] [place], [place] [address]Dr. Emelina Navarro XR CHEST 1 Von 06-13-2022 XR CHEST 1 V Normal [facility] BNPon 06-12-2022 Natriuretic peptide B (Bld) [Mass/Vol] 6268.0 pg/mL Critically high <=900.0 [facility] Comment on above: Performed By: #### B HORTICULTURAL TECHNICAL OFFICER, CMP ####[facility] Rgzqmwxayb726[address] [place], [place] [address]Dr. Emelina Navarro CBC AUTO DIFFon 06-12-2022 BASO # 0.1 103/ul Normal 0.0-0.1 [facility] Comment on above: Performed By: #### C BC ####[facility] Ufghrbtqiv2742[address] [place], [place] [address]Dr. Emelina Navarro Basophils/100 WBC (Bld) 0.3 % Normal 0.2-2.0 [facility] Comment on above: Performed By: #### C BC ####[facility] Xzlatixfdu9618[address] [place], [place] [address]Dr. Emelina Navarro EO # 0.1 103/ul Normal 0.0-0.7 [facility] Comment on above: Performed By: #### C BC ####[facility] Qiervcxwcf9250[address] [place], [place] [address]Dr. Emelina Navarro Eosinophils/100 WBC (Bld) 0.4 % Critically low 0.9-7.0 [facility] Comment on above: Performed By: #### C BC ####[facility] Ellqfwtayi2878[address] [place], [place] [address]Dr. Emelina Navarro Erythrocyte distribution width (RBC) [Ratio] 17.7 % Critically high 11.0-15.0 [facility] Comment on above: Performed By: #### C BC ####[facility] Sogeekastx[address] [place] [phone]. Emelina Navarro Hematocrit (Bld) [Volume fraction] 44.4 % Normal 42.0-54.0 [facility] Comment on above: Performed By: #### C BC ####[facility] Heimcxuxln5017 [place] [phone]. Emelina Navarro Hemoglobin (Bld) [Mass/Vol] 14.3 g/dL Normal 14.0-18.0 [facility] Comment on above: Performed By: #### C BC ####[facility] Ootvnqexns4109 [place] [phone]. Emelina Ramon IG # 0.11 10e3/ul Critically high 0.00-0.03 [facility] Comment on above: Performed By: #### C BC ####[facility] Yuazbvoqls[address] [place] [address]Dr. Emelina Navarro IG % 0.5 % Normal 0.0-0.5 [facility] Comment on above: Performed By: #### C BC ####[facility] Eqtdubsrro0306 [place] [phone]. Awildanitza Navarro LYMPH # 1.7 103/ul Normal 1.2-3.8 [facility] Comment on above: Performed By: #### C BC ####[facility] Lnmvgnzzgb8794 [place] [phone]. Awildanitza Navarro Lymphocytes/100 WBC (Bld) 8.4 % Critically low 20.5-60.0 [facility] Comment on above: Performed By: #### C BC ####[facility] Jhtlhyyjgd2798 [place] [phone]. Awildanitza Navarro MANUAL DIFF REQ NO Normal The [facility] Comment on above: Performed By: #### C BC ####[facility] Rugxzcwytb7312 [place] [phone]. Emelina Navarro MCH (RBC) [Entitic mass] 28.3 pg Normal 25.9-34.0 [facility] Comment on above: Performed By: #### C BC ####[facility] Cqeecnqpms7616 [place] [phone]. Emelina Navarro MCHC (RBC) [Mass/Vol] 32.2 g/dL Normal 29.9-35.2 [facility] Comment on above: Performed By: #### C BC ####[facility] Ippyykjfqq9522 [place] [phone]. Emelina Navarro MCV (RBC) [Entitic vol] 87.9 fL Normal 80.0-94.0 [facility] Comment on above: Performed By: #### C BC ####[facility] Diakbctnks7367 [place] [phone]. Emelina Navarro MONO # 1.4 103/ul Critically high 0.3-0.8 [facility] Comment on above: Performed By: #### C BC ####[facility] Mticuhlmbt6476 [place] [phone]. Emelina Navarro Monocytes/100 WBC (Bld) 7.1 % Normal 1.7-12.0 [facility] Comment on above: Performed By: #### C BC ####[facility] Ftgfmujvjf[address] [place], [place] [id number]. Emelina Navarro NEUT # 16.8 103/ul Critically high 1.4-6.5 [facility] Comment on above: Performed By: #### C BC ####[facility] Ojodoisuax5148 [place] [phone]. Emelina Navarro Neutrophils/100 WBC (Bld) 83.3 % Critically high 43.0-75.0 [facility] Comment on above: Performed By: #### C BC ####[facility] Hdqfubzkde9406 [place] [phone]. Emelina Navarro Platelet mean volume (Bld) [Entitic vol] 10.0 fL Normal 9.5-13.5 [facility] Comment on above: Performed By: #### C BC ####[facility] Lbqyfibysb9670 [place] [phone]. Emelina Ramon PLT 227 103/ul Normal 150-450 [facility] Comment on above: Performed By: #### C BC ####[facility] Cnysdhwctj2902 [place], [place] [address]Mp. Emelina Navarro RBC 5.05 106/ul Normal 4.70-6.10 [facility] Comment on above: Performed By: #### C BC ####[facility] Islpzqfvhc4137 [place], [place] [address]Xv. Emelina Navarro WBC 20.2 103/ul Critically high 4.0-11.0 [facility] Comment on above: Performed By: #### C BC ####[facility] Bzwoalwnyb7783 [place], [place] [address]Mg. Emelina Navarro CULTURE BLOODon 06-12-2022 Microscopic examination of blood, culture Culture Observations: NO GROWTH AT 5 DAYS. Normal [facility] Comment on above: Performed By: #### B LDCX2 ####[facility] Yiqudjwvwp8069 [place], [place] [address]Mg. Emelina Navarro Microscopic examination of blood, culture Culture Observations: NO GROWTH AT 5 DAYS. Normal [facility] Comment on above: Performed By: #### B LDCX1 ####[facility] Agqrfphshl4412 [place], [place] [address]Ki. Emelina Navarro Covid-19 PCR (CVDTB)on 05-20 SARS-CoV-2 (COVID-19) RNA RADHA+probe Ql (Unsp spec) Not detected Normal NOT DETECTED [facility] Comment on above: Result Comment: [...] for this test is supported by the [employer] of Health and Human Service's declaration that [...] be used). Performed By: #### C VDTB ####[facility] Zrkxkxdpvy5[address] [place], [place] [address]Dr. Emelina Navarro ER URINE PROFILEon 2 Bilirubin Ql (U) Negative Normal NEGATIVE [facility] Comment on above: Performed By: #### E RUR ####[facility] Jhuvyrlujn260[address] [place], [place] [address]Dr. Awildanitza Navarro Clarity (U) CLEAR Normal CLEAR [facility] Comment on above: Performed By: #### E RUR ####[facility] Wozcmvotlt412[address] [place], [place] [address]Dr. Awildanitza Navarro Color (U) YELLOW Normal YELLOW [facility] Comment on above: Performed By: #### E RUR ####[facility] Zjeutbvcdz767[address] [place], [place] [address]Dr. Emelina Navarro ERUAHD A micrscopic examina tion will be performed if indicated. Normal [facility] Comment on above: Performed By: #### E RUR ####[facility] Bhywihuavi1444[address] [place], [place] [address]Dr. Awildanitza Ramon Glucose Ql (U) >1000 Abnormal NEGATIVE The [facility] Comment on above: Performed By: #### E RUR ####[facility] Iqjavxjyoi4816[address] [place], [place] [address]Dr. Emelina Navarro Hemoglobin Ql (U) Negative Normal NEGATIVE The [facility] Comment on above: Performed By: #### E RUR ####[facility] Xbcsvftdbi4924[address] [place], [place] [address]Dr. Emelina Navarro Ketones Ql (U) Negative Normal NEGATIVE The [facility] Comment on above: Performed By: #### E RUR ####[facility] Tiimizxdgj559799 [address] [place], [place] [address]Dr. Emelina Navarro LEUKOCYTES Negative Normal NEGATIVE [facility] Comment on above: Performed By: #### E RUR ####[facility] Kvjvtegodj725[address] [place], [place] [address]Dr. Emelina Navarro Nitrite Ql (U) Negative Normal NEGATIVE [facility] Comment on above: Performed By: #### E RUR ####[facility] Wzrrjsseyu1831 [place] [address]Dr. Awildanitza Ramon pH (U) 6.0 [pH] Normal 5-9 [facility] Comment on above: Performed By: #### E RUR ####[facility] Hxpatizbgw1296 [place] [address]Dr. Emelina Navarro SPEC GRAVITY 1.010 Normal 1.005-<=1. 025 [facility] Comment on above: Performed By: #### E RUR ####[facility] Ztlbyzalcm2139 [place] [address]Dr. Emelina Navarro UA PROTEIN Negative Normal NEGATIVE/ TRACE [facility] Comment on above: Performed By: #### E RUR ####[facility] Ztnbmvfddj8722[address] [place], [place] [address]Dr. Emelina Navarro UR MICRO IND NOT INDICATED Normal [facility] Comment on above: Performed By: #### E RUR ####[facility] Sgvvlnzmhg3705 [place] [address]Dr. Emelina Navarro Urobilinogen Qn (U) 1.0 {Ashley'U}/dL Normal 0.2 - 1. 0 [facility] Comment on above: Performed By: #### E RUR ####[facility] Gfsenkiqba9273[address] [place], [place] [address]Dr. Emelina Navarro LACTATE/LACTIC ACIDon 2021 Lactate [Moles/Vol] 1.2 mmol/L Normal 0.4-1.9 [facility] Comment on above: Performed By: #### L ACT ####[facility] Acpmyngyim4375[address] [place], [place] [address]Dr. Emelina Navarro PROF 14(COMP METB)on 022 Albumin [Mass/Vol] 3.4 g/dL Normal 3.4-5.0 [facility] Comment on above: Performed By: #### B HORTICULTURAL TECHNICAL OFFICER, CMP ####[facility] Kkdftwdxdb9026[address] [place], [place] [address]Dr. Emelina Navarro Albumin/Globulin [Mass ratio] 0.8 {ratio} Normal [facility] Comment on above: Performed By: #### B HORTICULTURAL TECHNICAL OFFICER, CMP ####[facility] Vfueprkywf0711 [place] [address]Dr. Emelina Navarro ALP [Catalytic activity/Vol] 100 U/L Normal 46-116 [facility] Comment on above: Performed By: #### B HORTICULTURAL TECHNICAL OFFICER, CMP ####[facility] Cjrzunrtaz1004 [place] [address]Dr. Emelina Navarro ALT [Catalytic activity/Vol] 26 U/L Normal 16-63 [facility] Comment on above: Performed By: #### B HORTICULTURAL TECHNICAL OFFICER, CMP ####[facility] Stqpwnzaeu4112[address] [place], [place] [address]Dr. Emelina Navarro Anion gap [Moles/Vol] 11.3 mmol/L Normal [facility] Comment on above: Performed By: #### B HORTICULTURAL TECHNICAL OFFICER, CMP ####[facility] Weajvslyuk93[address] [place], [place] [address]Dr. Emelina Navarro AST [Catalytic activity/Vol] 19 U/L Normal 15-37 [facility] Comment on above: Performed By: #### B HORTICULTURAL TECHNICAL OFFICER, CMP ####[facility] Roumsadngx9857[address] [place], [place] [address]Dr. Emelina Navarro Bilirubin [Mass/Vol] 1.4 mg/dL Critically high 0.2-1.0 [facility] Comment on above: Performed By: #### B HORTICULTURAL TECHNICAL OFFICER, CMP ####[facility] Kroxdmzute9696 [place] [address]Dr. Emelina Navarro Calcium [Mass/Vol] 9.1 mg/dL Normal 8.5-10.1 [facility] Comment on above: Performed By: #### B HORTICULTURAL TECHNICAL OFFICER, CMP ####[facility] Omvotzejjj1739 [place] [address]Dr. Emelina Navarro Chloride [Moles/Vol] 103 mmol/L Normal 98-107 [facility] Comment on above: Performed By: #### B HORTICULTURAL TECHNICAL OFFICER, CMP ####[facility] Kcqeuaxokg114[address] [place], [place] [address]Dr. Emelina Navarro CO2 [Moles/Vol] 27.8 mmol/L Normal 21.0-32.0 The [facility] Comment on above: Performed By: #### B HORTICULTURAL TECHNICAL OFFICER, CMP ####[facility] Crttnwyqzb1021 [place] [address]Dr. Emelina Navarro Creatinine [Mass/Vol] 1.75 mg/dL Critically high 0.70-1.30 [facility] Comment on above: Performed By: #### B HORTICULTURAL TECHNICAL OFFICER, CMP ####[facility] Ljvbtfwezq3074[address] [place], [place] [address]Dr. Emelina Navarro EGFR-AF [place] 47 mL/min/1.73m2 Critically low >=60 [facility] Comment on above: Performed By: #### B HORTICULTURAL TECHNICAL OFFICER, CMP ####[facility] Okzqlklkmn005899 [address] [place], [place] [address]Dr. Emelina Navarro EGFR-NON AF [place] 39 mL/min/1.73m2 Critically low >=60 [facility] Comment on above: Performed By: #### B HORTICULTURAL TECHNICAL OFFICER, CMP ####[facility] Tsrajmcxhu5690[address] [place], [place] [address]Dr. Emelina Navarro Globulin (S) [Mass/Vol] 4.1 g/dL Normal [facility] Comment on above: Performed By: #### B HORTICULTURAL TECHNICAL OFFICER, CMP ####[facility] Koxeyhqwbm696[address] [place], [place] [address]Dr. Emelina Navarro Glucose [Mass/Vol] 120 mg/dL Critically high 74-106 [facility] Comment on above: Performed By: #### B HORTICULTURAL TECHNICAL OFFICER, CMP ####[facility] Lhjqibtzeo1103 [place] [address]Dr. Emelina Navarro Potassium [Moles/Vol] 4.1 mmol/L Normal 3.5-5.1 [facility] Comment on above: Performed By: #### B HORTICULTURAL TECHNICAL OFFICER, CMP ####[facility] Uifzvgvyvo8707[address] [place], [place] [address]Dr. Emelina Navarro Protein [Mass/Vol] 7.5 g/dL Normal 6.4-8.2 [facility] Comment on above: Performed By: #### B HORTICULTURAL TECHNICAL OFFICER, CMP ####[facility] Jvbsnpxyxy186[address] [place], [place] [address]Dr. Emelina Navarro Sodium [Moles/Vol] 138 mmol/L Normal 136-145 [facility] Comment on above: Performed By: #### B HORTICULTURAL TECHNICAL OFFICER, CMP ####[facility] Taoiotskrb081[address] [place], [place] [address]Dr. Emelina Navarro Urea nitrogen [Mass/Vol] 24.0 mg/dL Critically high 7.0-18.0 [facility] Comment on above: Performed By: #### B HORTICULTURAL TECHNICAL OFFICER, CMP ####[facility] Bmqgyvfytr3053[address] [place], [place] [address]Dr. Emelina Navarro Urea nitrogen/Creatinine [Mass ratio] 13.7 mg/mg Normal [facility] Comment on above: Performed By: #### B HORTICULTURAL TECHNICAL OFFICER, CMP ####[facility] Niirgryqiy1868[address] [place], [place] [address]Dr. Emelina Navarro SPUTUM CULTUREon 05-11-2022 Epithelial cells LM Ql (Urine sed) Few Normal [facility] Comment on above: Performed By: #### C XSPTUM ####[facility] Wzzhvppmcj8987[address] [place], [place] [address]Dr. Emelina Navarro Gram Stain Evaluation Comment Normal [facility] Comment on above: Result Comment: This specimen is of good quality and is acceptable for routinebacterial culture. Performed By: #### C XSPTUM ####[facility] Rsuvfauben2107[address] [place], [place] [address]Dr. Emleina Navarro Lower Respiratory Culture Final report Normal [facility] Comment on above: Performed By: #### C XSPTUM ####[facility] Cucyktqxpq8[address] [place], [place] [address]Dr. Emelina Navarro Result 1 Comment Normal [facility] Comment on above: Result Comment: Few gram positive cocci Performed By: #### C XSPTUM ####[facility] Wzsywlsctl93[address] [place], [place] [address]Dr. Emelina Navarro Result Comment: Rout ine respiratory cedric Result 2 Normal [facility] Comment on above: Performed By: #### C XSPTUM ####[facility] Egkronnkti2839 [place] [address]Dr. Emelina Navarro Result 3 Normal [facility] Comment on above: Performed By: #### C XSPTUM ####[facility] Xphhcyjoqm2893 [place] [address]Dr. Emelian Navarro Result 4 Normal [facility] Comment on above: Performed By: #### C XSPTUM ####[facility] Bpdvwmjhww4640 [place] [address]Dr. Emelina Navarro White Blood Cells Few Normal The [facility] Comment on above: Performed By: #### C XSPTUM ####[facility] Xoksephaoq2717[address] [place], [place] [address]Dr. Emelina Navarro CBC W MANUAL DIFFon 05-10-20 22 ATYPICAL LYMPH # Normal [facility] Comment on above: Performed By: #### C BCMAN ####[facility] Lfgcmcyggo0514[address] [place], [place] [address]Dr. Emelina Navarro ATYPICAL LYMPH % Normal [facility] Comment on above: Performed By: #### C BCMAN ####[facility] Gzqudtvqie242[address] [place], [place] [address]Dr. Emelina Navarro BAND # 0.5 103/ul Critically high 0.0-0.3 The [facility] Comment on above: Performed By: #### C BCMAN ####[facility] Mablqgjchl6444[address] [place], [place] [address]Dr. Emelina Ramon BAND % 2 % Normal 0-5 [facility] Comment on above: Performed By: #### C BCMAN ####[facility] Ykfonfrggr8034[address] [place], [place] [address]Dr. Emelina Navarro BASOM # 0.00 103/ul Normal 0.00-0.10 [facility] Comment on above: Performed By: #### C BCMAN ####[facility] Yibigqpubk28[address] [place], [place] [address]Dr. Emelina Ramon BASOM % 0.0 % Critically low 0.2-2.0 The [facility] Comment on above: Performed By: #### C BCADRIAN ####[facility] Iculkoidqp7043 [place] [phone]. Emelina Navarro BLAST # Normal [facility] Comment on above: Performed By: #### C BCMAN ####[facility] Amyeajegql8259 [place] [phone]. Emelina Navarro BLAST % Normal [facility] Comment on above: Performed By: #### C BCMAN ####[facility] Vistclocyp5675 [place] [phone]. Emelina Navarro CORRECTED WBC Normal 4.0-11.0 [facility] Comment on above: Performed By: #### C BCADRIAN ####[facility] Yvjdbzjqgp4363 [place] [address]Dr. Emelina Navarro EOS # 0.24 103/ul Normal 0.00-0.70 [facility] Comment on above: Performed By: #### C BCADRIAN ####[facility] Adtrzjxulf8517[address] [place], [place] [address]Dr. Emelina Navarro EOS% 1.0 % Normal 0.9-7.0 [facility] Comment on above: Performed By: #### C BCADRIAN ####[facility] Mbpzeijmuu3997 [place] [address]Dr. Emelina Navarro HCT 41.6 % Critically low 42.0-54.0 [facility] Comment on above: Performed By: #### C BCADRIAN ####[facility] Axmrormshy1166 [place] [address]Dr. Emelina Navarro HGB 13.2 g/dl Critically low 14.0-18.0 The [facility] Comment on above: Performed By: #### C BCADRIAN ####[facility] Ttamjixlnm1559 [place] [phone]. Emelina Navarro LYMPHM # 0.71 103/ul Critically low 1.20-3.80 The [facility] Comment on above: Performed By: #### C BCADRIAN ####[facility] Qclxbbgboc9002 [place] [phone]. Emelina Navarro LYMPHM% 3.0 % Critically low 20.5-60.0 [facility] Comment on above: Performed By: #### C PURVI ####[facility] Syneptipei8731 [place] [phone]. Emelina Navarro MCH 28.3 pg Normal 25.9-34.0 [facility] Comment on above: Performed By: #### C PURVI ####[facility] Qvmzbkyijw4263 [place] [phone]. Emelina Navarro MCHC 31.7 g/dl Normal 29.9-35.2 [facility] Comment on above: Performed By: #### C PURVI ####[facility] Ccqqbxvzvx2721 [place] [phone]. Emelina Navarro MCV 89.3 fL Normal 80.0-94.0 [facility] Comment on above: Performed By: #### C PURVI ####[facility] Lmsmojdmor4601 [place] [phone]. Emelina Navarro METAMYELOCYTE # Normal [facility] Comment on above: Performed By: #### C PURVI ####[facility] Oelxkznney1514 [place] [phone]. Emelina Navarro METAMYELOCYTE % Normal [facility] Comment on above: Performed By: #### C PURVI ####[facility] Uofbggdsnx9845 [place] [phone]. Emelina Navarro MONOM# 0.24 103/ul Critically low 0.30-0.80 [facility] Comment on above: Performed By: #### C PURVI ####[facility] Owdkkhzyyg6356 [place] [phone]. Emelina Navarro MONOM% 1.0 % Critically low 1.7-12.0 The [facility] Comment on above: Performed By: #### C PURVI ####[facility] Vygnkotguh[address] [place], [place] [address]Dr. Emelina Navarro MPV 9.7 fL Normal 9.5-13.5 [facility] Comment on above: Performed By: #### C PURVI ####[facility] Oxqkbiyudr27[address] [place], [place] [address]Dr. Emelina Navarro MYELOCYTE # Normal [facility] Comment on above: Performed By: #### C PURVI ####[facility] Qiyfrvmcck1487 [place], [place] [address]Bv. Emelina Navarro MYELOCYTE % Normal [facility] Comment on above: Performed By: #### C PURVI ####[facility] Viufoyseee5207 [place], [place] [address]Yp. Emelina Navarro NRBC Normal [facility] Comment on above: Performed By: #### C PURVI ####[facility] Gzeejahvvv2720 [place], [place] [address]Fu. Emelina Navarro PLT 192 103/ul Normal 150-450 [facility] Comment on above: Performed By: #### C PURVI ####[facility] Ooaaecriir4783 [place], [place] [address]Lj. Emelina Navarro RBC 4.66 106/ul Critically low 4.70-6.10 [facility] Comment on above: Performed By: #### C PURVI ####[facility] Vqzlznylvb5703 [place], [place] [address]Kn. Emelina Navarro RDW 16.1 % Critically high 11.0-15.0 [facility] Comment on above: Performed By: #### C PURVI ####[facility] Eftdhicrpt6011 [place], [place] [address]Sg. Emelina Navarro SEG # 21.95 103/ul Critically high 1.40-6.50 The [facility] Comment on above: Performed By: #### C PURVI ####[facility] Ryifthxoxm5059 [place], [place] [address]Kw. Emelina Navarro SEG % 93.0 % Critically high 43.0-75.0 [facility] Comment on above: Performed By: #### C PURVI ####[facility] Wnccrljrbs2581 [place], [place] [address]Fd. Emelina Navarro WBC 23.6 103/ul Critically high 4.0-11.0 [facility] Comment on above: Performed By: #### C PURVI ####[facility] Uapbr[address]zqys[address] [place] [address]Dr. Emelina Navarro CRPon 05-10-2022 CRP 2.3 mg/dL Critically high <=1.0 [facility] Comment on above: Performed By: #### C MP, HSTROPN, CRP ####[facility] Rysrgddyaw[address] [place] [address]Dr. Emelina Navarro DIGOXINon 05-10-2022 DIG 0.6 ng/mL Critically low 0.9-2.0 [facility] Comment on above: Performed By: #### D IG ####[facility] Tkpcobebif[address] [place] [address]Dr. Emelina Navarro POINT OF CARE GLUCOSEon 04-20 Glucose [Mass/Vol] 246 mg/dL Critically high 74-106 [facility] Comment on above: Performed By: #### P OCGLUC ####[facility] Ahtmcxwpnc[address] [place] [address]Dr. Emelina Navarro PROF 14(COMP METB)on 022 Albumin [Mass/Vol] 3.0 g/dL Critically low 3.4-5.0 [facility] Comment on above: Performed By: #### C MP, HSTROPN, CRP ####[facility] Hbsgtcpbsy[address] [place] [address]Dr. Emelina Navarro Albumin/Globulin [Mass ratio] 0.7 {ratio} Normal [facility] Comment on above: Performed By: #### C MP, HSTROPN, CRP ####[facility] Ormpqyoqvn[address] [place] [address]Dr. Emelina Navarro ALP [Catalytic activity/Vol] 95 U/L Normal 46-116 [facility] Comment on above: Performed By: #### C MP, HSTROPN, CRP ####[facility] Aosrxdojnb[address] [place] [address]Dr. Emelina Navarro ALT [Catalytic activity/Vol] 75 U/L Critically high 16-63 [facility] Comment on above: Performed By: #### C MP, HSTROPN, CRP ####[facility] Xuclwcciom[address] [place] [address]Dr. Emelina Navarro Anion gap [Moles/Vol] 11.1 mmol/L Normal [facility] Comment on above: Performed By: #### C MP, HSTROPN, CRP ####[facility] Mwbodnwano[address] [place] [address]Dr. Emelina Navarro AST [Catalytic activity/Vol] 25 U/L Normal 15-37 [facility] Comment on above: Performed By: #### C MP, HSTROPN, CRP ####[facility] Aoritflwph13[address] [place] [address]Dr. Emelina Navarro Bilirubin [Mass/Vol] 0.4 mg/dL Normal 0.2-1.0 [facility] Comment on above: Performed By: #### C MP, HSTROPN, CRP ####[facility] Uxmwnbjgym40[address] [place] [address]Dr. Emelina Navarro Calcium [Mass/Vol] 8.3 mg/dL Critically low 8.5-10.1 [facility] Comment on above: Performed By: #### C MP, HSTROPN, CRP ####[facility] Lusqwgbqbd23[address] [place] [address]Dr. Emelina Navarro Chloride [Moles/Vol] 100 mmol/L Normal 98-107 [facility] Comment on above: Performed By: #### C MP, HSTROPN, CRP ####[facility] Xdfsmpluis49[address] [place] [address]Dr. Emelina Navarro CO2 [Moles/Vol] 28.6 mmol/L Normal 21.0-32.0 [facility] Comment on above: Performed By: #### C MP, HSTROPN, CRP ####[facility] Tlbniasqdn[address] [place] [address]Dr. mEelina Navarro Creatinine [Mass/Vol] 1.58 mg/dL Critically high 0.70-1.30 [facility] Comment on above: Performed By: #### C MP, HSTROPN, CRP ####[facility] Kuhhuthnnn[address] [place] [address]Dr. Yilan Navarro EGFR-AF [place] 53 mL/min/1.73m2 Critically low >=60 [facility] Comment on above: Performed By: #### C MP, HSTROPN, CRP ####[facility] Mdqvflmmbn7[address] [place] [address]Dr. Emelina Navarro EGFR-NON AF [place] 44 mL/min/1.73m2 Critically low >=60 [facility] Comment on above: Performed By: #### C MP, HSTROPN, CRP ####[facility] Xjcxincegg64[address] [place] [address]Dr. Emelina Navarro Globulin (S) [Mass/Vol] 4.2 g/dL Normal [facility] Comment on above: Performed By: #### C MP, HSTROPN, CRP ####[facility] Yrlhcbeqyk0165 [place] [address]Dr. Emelina Navarro Glucose [Mass/Vol] 230 mg/dL Critically high 74-106 [facility] Comment on above: Performed By: #### C MP, HSTROPN, CRP ####[facility] Hroxvwfagi1898 [place] [address]Dr. Emelina Navarro Potassium [Moles/Vol] 4.7 mmol/L Normal 3.5-5.1 [facility] Comment on above: Performed By: #### C MP, HSTROPN, CRP ####[facility] Mtqhcnqqle6564 [place] [address]Dr. Emelina Navarro Protein [Mass/Vol] 7.2 g/dL Normal 6.4-8.2 [facility] Comment on above: Performed By: #### C MP, HSTROPN, CRP ####[facility] Ulonnavwhw5633 [place] [address]Dr. Emelina Navarro Sodium [Moles/Vol] 135 mmol/L Critically low 136-145 [facility] Comment on above: Performed By: #### C MP, HSTROPN, CRP ####[facility] Juilmlzned9100 [place] [address]Dr. Emelina Navarro Urea nitrogen [Mass/Vol] 45.0 mg/dL Critically high 7.0-18.0 [facility] Comment on above: Performed By: #### C MP, HSTROPN, CRP ####[facility] Itnbefspha3148 [place] [address]Dr. Emelina Navarro Urea nitrogen/Creatinine [Mass ratio] 28.5 mg/mg Normal [facility] Comment on above: Performed By: #### C MP, HSTROPN, CRP ####[facility] Opejoojghh26[address] [place] [address]Dr. Emelina Navarro PROTIMEon 05-10-2022 INR Coag (PPP) [Relative time] 2.93 {INR} Normal [facility] Comment on above: Performed By: #### P T ####[facility] Pxcnnmvf[address] [place], [place] [address]Dr. Emelina Navarro INR GUIDELINES SEE BELOW Normal [facility] Comment on above: Result Comment: WENDY RED INR: 2.0 - 3.0 CONDITIONS NOT LISTED BELOW 2.5 - 3.5 FOR PROSTHETIC HEART VALVE REPLACEMENT 2.5 - 3.5 RECURRENT THROMBOSIS Performed By: #### P T ####[facility] Izlkswhdyw[address] [place], [place] [address]Dr. Emelina Navarro PT Coag (PPP) [Time] 29.5 s Critically high 9.0-11.6 [facility] Comment on above: Performed By: #### P T ####[facility] Iojminvakb095[address] [place] [address]Dr. Emelina Navarro TROPONIN, HIGH SENSITIVITYon 05-10-2022 HSTROP 38.3 pg/mL Normal 4.0-76.1 [facility] Comment on above: Result Comment: CUT- OFF POINTS HAVE BEEN ESTABLISHED BASED ON THE FOURTH UNIVERSAL DEFINITIONS OF MYOCARDIALINFARCTION. THE UPPER REFERENCE LIMIT (URL) OF TROPONIN, DEFINED THE 99TH PERCENTILE OFcTnI DISTRIBUTION IN A REFERENCE POPULATION, HAS BEEN CONFIRMED THE DECISION THRESHOLDFOR [place] DIAGNOSIS. Performed By: #### C MP, HSTROPN, CRP ####[facility] Mabhifqvic4316 [place] [address]DrWesley Navarro CBC AUTO DIFFon 05-09-2022 BASO # 0.0 103/ul Normal 0.0-0.1 [facility] Comment on above: Performed By: #### C BC ####[facility] Hbqqyamtyt5609 [place] [address]Dr. Emelina Navarro Basophils/100 WBC (Bld) 0.1 % Critically low 0.2-2.0 [facility] Comment on above: Performed By: #### C BC ####[facility] Wcpqcsiziv[address] [place], [place] [address]Dr. Emelina Navarro EO # 0.0 103/ul Normal 0.0-0.7 [facility] Comment on above: Performed By: #### C BC ####[facility] Dxbhecwahv[address] [place], [place] [address]Dr. Emelina Navarro Eosinophils/100 WBC (Bld) 0.0 % Critically low 0.9-7.0 [facility] Comment on above: Performed By: #### C BC ####[facility] Wkbhajjnwl17[address] [place], [place] [address]Dr. Emelina Navarro Erythrocyte distribution width (RBC) [Ratio] 15.9 % Critically high 11.0-15.0 [facility] Comment on above: Performed By: #### C BC ####[facility] Xxqmqbeesh[address] [place], [place] [address]Dr. Emelina Navarro Hematocrit (Bld) [Volume fraction] 42.7 % Normal 42.0-54.0 [facility] Comment on above: Performed By: #### C BC ####[facility] Cgdqfwauhp[address] [place], [place] [address]Dr. Emelina Navarro Hemoglobin (Bld) [Mass/Vol] 13.5 g/dL Critically low 14.0-18.0 [facility] Comment on above: Performed By: #### C BC ####[facility] Fhfwiujsix[address] [place], [place] [address]Dr. Emelina Navarro IG # 0.14 10e3/ul Critically high 0.00-0.03 [facility] Comment on above: Performed By: #### C BC ####[facility] Knbonrrayw[address] [place], [place] [address]Dr. Emelina Navarro IG % 0.8 % Critically high 0.0-0.5 [facility] Comment on above: Performed By: #### C BC ####[facility] Okbzutizca2546 [place] [address]DrWesley Navarro LYMPH # 1.1 103/ul Critically low 1.2-3.8 [facility] Comment on above: Performed By: #### C BC ####[facility] Dkzxvwgdlm2196 [place] [address]DrWesley Navarro Lymphocytes/100 WBC (Bld) 6.2 % Critically low 20.5-60.0 [facility] Comment on above: Performed By: #### C BC ####[facility] Ljhzfvccwb[address] [place], [place] [address]DrWesley Navarro MANUAL DIFF REQ NO Normal [facility] Comment on above: Performed By: #### C BC ####[facility] Olivorliad[address] [place], [place] [address]DrWesley Navarro MCH (RBC) [Entitic mass] 28.5 pg Normal 25.9-34.0 [facility] Comment on above: Performed By: #### C BC ####[facility] Uyneoigufr[address] [place], [place] [address]DrWesley Navarro MCHC (RBC) [Mass/Vol] 31.6 g/dL Normal 29.9-35.2 [facility] Comment on above: Performed By: #### C BC ####[facility] Vzpwyakmuj[address] [place], [place] [address]DrWesley Navarro MCV (RBC) [Entitic vol] 90.3 fL Normal 80.0-94.0 [facility] Comment on above: Performed By: #### C BC ####[facility] Sxpwzcjegx[address] [place], [place] [address]DrWesley Navarro MONO # 0.4 103/ul Normal 0.3-0.8 [facility] Comment on above: Performed By: #### C BC ####[facility] Kzgmpsornl[address] [place], [place] [address]DrWesley Navarro Monocytes/100 WBC (Bld) 2.1 % Normal 1.7-12.0 [facility] Comment on above: Performed By: #### C BC ####[facility] Kxgbvlrsph6851 [place] [address]Dr. Emelina Navarro NEUT # 16.2 103/ul Critically high 1.4-6.5 [facility] Comment on above: Performed By: #### C BC ####[facility] Sllhuddmql4387 [place] [address]Dr. Emelina Navarro Neutrophils/100 WBC (Bld) 90.8 % Critically high 43.0-75.0 [facility] Comment on above: Performed By: #### C BC ####[facility] Ftxoirvxzi3189 [place] [address]Dr. Emelina Navarro Platelet mean volume (Bld) [Entitic vol] 10.2 fL Normal 9.5-13.5 [facility] Comment on above: Performed By: #### C BC ####[facility] Ujczukvyyg9[address] [place] [address]Dr. Emelina Navarro PLT 215 103/ul Normal 150-450 [facility] Comment on above: Performed By: #### C BC ####[facility] Wbzdlkgvva[address] [place], [place] [address]Dr. Emelina Navarro RBC 4.73 106/ul Normal 4.70-6.10 [facility] Comment on above: Performed By: #### C BC ####[facility] [address]cwbhbbavn[address] [place] [id number]. Emelina Navarro WBC 17.8 103/ul Critically high 4.0-11.0 [facility] Comment on above: Performed By: #### C BC ####[facility] Dgkotwdags5146 [place] [address]Dr. Emelina Navarro CRPon 05-09-2022 CRP 4.4 mg/dL Critically high <=1.0 [facility] Comment on above: Performed By: #### C MP, HSTROPN, CRP ####[facility] Ekrvdstgns[address] [place], [place] [address]Dr. Emelina Navarro DIGOXINon 05-09-2022 DIG 1.3 ng/mL Normal 0.9-2.0 [facility] Comment on above: Performed By: #### D IG ####[facility] Luabltxyqt5[address] [place] [address]Dr. Emelina Navarro POINT OF CARE GLUCOSEon 04-20 Glucose [Mass/Vol] 319 mg/dL Critically high -106 [facility] Comment on above: Performed By: #### P OCGLUC ####[facility] Gbreivcvkx36[address] [place] [address]Dr. Emelina Navarro Glucose [Mass/Vol] 259 mg/dL Critically high -106 [facility] Comment on above: Performed By: #### P OCGLUC ####[facility] Yeplwhkiju2765 [place] [address]Dr. Emelina Navarro Glucose [Mass/Vol] 564 mg/dL Critically high -106 [facility] Comment on above: Result Comment: NURS E NOTIFIED Performed By: #### P OCGLUC ####[facility] Bsxjxenosg23[address] [place] [address]Dr. Emelina Navarro PROF 14(COMP METB)on 022 Albumin [Mass/Vol] 3.1 g/dL Critically low 3.4-5.0 [facility] Comment on above: Performed By: #### C MP, HSTROPN, CRP ####[facility] Riflrsiyou23[address] [place] [address]Dr. Emelina Navarro Albumin/Globulin [Mass ratio] 0.7 {ratio} Normal [facility] Comment on above: Performed By: #### C MP, HSTROPN, CRP ####[facility] Tdwxocsjhr6909 [place] [address]Dr. Emelina Navarro ALP [Catalytic activity/Vol] 102 U/L Normal 46-116 [facility] Comment on above: Performed By: #### C MP, HSTROPN, CRP ####[facility] Oeqrneasbr7201 [place] [address]Dr. Yilan Navarro ALT [Catalytic activity/Vol] 81 U/L Critically high 16-63 [facility] Comment on above: Performed By: #### C MP, HSTROPN, CRP ####[facility] Taspzqwanb9082 [place] [address]Dr. Emelina Navarro Anion gap [Moles/Vol] 12.3 mmol/L Normal [facility] Comment on above: Performed By: #### C MP, HSTROPN, CRP ####[facility] Qoxjewabco1550 [place] [address]Dr. Emelina Navarro AST [Catalytic activity/Vol] 22 U/L Normal 15-37 [facility] Comment on above: Performed By: #### C MP, HSTROPN, CRP ####[facility] Thbmcksdly[address] [place], [place] [address]Dr. Emelina Navarro Bilirubin [Mass/Vol] 0.6 mg/dL Normal 0.2-1.0 [facility] Comment on above: Performed By: #### C MP, HSTROPN, CRP ####[facility] Zhvtasjijc[address] [place], [place] [address]Dr. Emelina Navarro Calcium [Mass/Vol] 8.6 mg/dL Normal 8.5-10.1 [facility] Comment on above: Performed By: #### C MP, HSTROPN, CRP ####[facility] Yuvgsrcywx4556 [place] [address]Dr. Emelina Navarro Chloride [Moles/Vol] 100 mmol/L Normal 98-107 [facility] Comment on above: Performed By: #### C MP, HSTROPN, CRP ####[facility] Ngvzadhytt1271 [place] [address]Dr. Emelina Navarro CO2 [Moles/Vol] 28.4 mmol/L Normal 21.0-32.0 [facility] Comment on above: Performed By: #### C MP, HSTROPN, CRP ####[facility] Zzjsmbrrqk6084 [place] [address]Dr. Emelina Navarro Creatinine [Mass/Vol] 1.91 mg/dL Critically high 0.70-1.30 [facility] Comment on above: Performed By: #### C MP, HSTROPN, CRP ####[facility] Acvfbhltqd6939 [place] [address]Dr. Yilan Navarro EGFR-AF [place] 43 mL/min/1.73m2 Critically low >=60 [facility] Comment on above: Performed By: #### C MP, HSTROPN, CRP ####[facility] Ewgluidecx9507 [place] [address]Dr. Yilan Navarro EGFR-NON AF [place] 35 mL/min/1.73m2 Critically low >=60 [facility] Comment on above: Performed By: #### C MP, HSTROPN, CRP ####[facility] Shsttlnrdn1269 [place] [address]Dr. Awildalan Navarro Globulin (S) [Mass/Vol] 4.6 g/dL Normal [facility] Comment on above: Performed By: #### C MP, HSTROPN, CRP ####[facility] Ocvuylhzaa0635 [place] [address]Dr. Awildalan Navarro Glucose [Mass/Vol] 242 mg/dL Critically high 74-106 [facility] Comment on above: Performed By: #### C MP, HSTROPN, CRP ####[facility] Rimuccedku0634 [place] [address]Dr. Awildalan Navarro Potassium [Moles/Vol] 4.7 mmol/L Normal 3.5-5.1 [facility] Comment on above: Performed By: #### C MP, HSTROPN, CRP ####[facility] Jjlvukddjt1135 [place] [address]Dr. Yilan Navarro Protein [Mass/Vol] 7.7 g/dL Normal 6.4-8.2 [facility] Comment on above: Performed By: #### C MP, HSTROPN, CRP ####[facility] Lbvjsykkfg6572 [place] [address]Dr. Awildalan Navarro Sodium [Moles/Vol] 136 mmol/L Normal 136-145 [facility] Comment on above: Performed By: #### C MP, HSTROPN, CRP ####[facility] Wbstvjbgxh6741 [place] [address]Dr. Emelina Navarro Urea nitrogen [Mass/Vol] 48.0 mg/dL Critically high 7.0-18.0 [facility] Comment on above: Performed By: #### C MP, HSTROPN, CRP ####[facility] Evmbazgmyo5583 [place] [address]Dr. Emelina Navarro Urea nitrogen/Creatinine [Mass ratio] 25.1 mg/mg Normal [facility] Comment on above: Performed By: #### C MP, HSTROPN, CRP ####[facility] Jvxesuetiv0600 [place] [address]Dr. Emelina Navarro PROTIMEon 05-09-2022 INR Coag (PPP) [Relative time] 2.59 {INR} Normal [facility] Comment on above: Performed By: #### P T ####[facility] [address]ynzegzhu[address] [place], [place] [address]Dr. Emelina Navarro INR GUIDELINES SEE BELOW Normal [facility] Comment on above: Result Comment: WENDY RED INR: 2.0 - 3.0 CONDITIONS NOT LISTED BELOW 2.5 - 3.5 FOR PROSTHETIC HEART VALVE REPLACEMENT 2.5 - 3.5 RECURRENT THROMBOSIS Performed By: #### P T ####[facility] Hquomrnztf36[address] [place] [address]Dr. Emelina Navarro PT Coag (PPP) [Time] 26.3 s Critically high 9.0-11.6 [facility] Comment on above: Performed By: #### P T ####[facility] Wwlzhivxjh58[address] [place] [address]Dr. Emelina Navarro TROPONIN, HIGH SENSITIVITYon 05-09-2022 HSTROP 45.4 pg/mL Normal 4.0-76.1 [facility] Comment on above: Result Comment: CUT- OFF POINTS HAVE BEEN ESTABLISHED BASED ON THE FOURTH UNIVERSAL DEFINITIONS OF MYOCARDIALINFARCTION. THE UPPER REFERENCE LIMIT (URL) OF TROPONIN, DEFINED THE 99TH PERCENTILE OFcTnI DISTRIBUTION IN A REFERENCE POPULATION, HAS BEEN CONFIRMED THE DECISION THRESHOLDFOR [place] DIAGNOSIS. Performed By: #### C MP, HSTROPN, CRP ####[facility] Wjmvnzjlch9[address] [place] [id number]. Emelina Navarro XR FOOT RT MIN 3 VIEWSon 2 XR FOOT RT MIN 3 VIEWS Normal [facility] CARDIAC IMTIAZ 3-6on 2 CK [Catalytic activity/Vol] 34 U/L Critically low 39-308 [facility] Comment on above: Performed By: #### C MREP ####[facility] Upbyqgmqnc264[address] [place] [address]Dr. Emelina Navarro CK.MB [Mass/Vol] 3.37 ng/mL Normal <=3.60 [facility] Comment on above: Performed By: #### C MREP ####[facility] Jkndroessh1211 [place] [address]Dr. Emelina Navarro HSTROP 53.5 pg/mL Normal 4.0-76.1 [facility] Comment on above: Result Comment: CUT- OFF POINTS HAVE BEEN ESTABLISHED BASED ON THE FOURTH UNIVERSAL DEFINITIONS OF MYOCARDIALINFARCTION. THE UPPER REFERENCE LIMIT (URL) OF TROPONIN, DEFINED THE 99TH PERCENTILE OFcTnI DISTRIBUTION IN A REFERENCE POPULATION, HAS BEEN CONFIRMED THE DECISION THRESHOLDFOR [place] DIAGNOSIS. Performed By: #### C MREP ####[facility] Fwefplusam3593 [place] [address]Dr. Emelina Navarro CK [Catalytic activity/Vol] 39 U/L Normal 39-308 [facility] Comment on above: Performed By: #### C MREP ####[facility] Kthkaqvrpy1292 [place] [address]Dr. Emelina Navarro CK.MB [Mass/Vol] 2.74 ng/mL Normal <=3.60 [facility] Comment on above: Performed By: #### C MREP ####[facility] Wxxgjshdck2372 [place] [address]Dr. Emelina Navarro HSTROP 68.7 pg/mL Normal 4.0-76.1 [facility] Comment on above: Result Comment: CUT- OFF POINTS HAVE BEEN ESTABLISHED BASED ON THE FOURTH UNIVERSAL DEFINITIONS OF MYOCARDIALINFARCTION. THE UPPER REFERENCE LIMIT (URL) OF TROPONIN, DEFINED THE 99TH PERCENTILE OFcTnI DISTRIBUTION IN A REFERENCE POPULATION, HAS BEEN CONFIRMED THE DECISION THRESHOLDFOR [place] DIAGNOSIS. Performed By: #### C MREP ####[facility] Vzpsinnzfw90[address] [place] [address]Dr. Emelina Ramon CARDIAC IMTIAZ ADMITon 022 CK [Catalytic activity/Vol] 30 U/L Critically low 39-308 [facility] Comment on above: Performed By: #### SHIVAM Mcgee MP ####[facility] Wazqhjzusa9108 [place] [address]Dr. Emelina Navarro CK.MB [Mass/Vol] 2.88 ng/mL Normal <=3.60 [facility] Comment on above: Performed By: #### SHIVAM Mcgee MP ####[facility] Enypvnfgsn[address] [place], [place] [address]Dr. Awildanitza Navarro HSTROP 69.9 pg/mL Normal 4.0-76.1 [facility] Comment on above: Result Comment: CUT- OFF POINTS HAVE BEEN ESTABLISHED BASED ON THE FOURTH UNIVERSAL DEFINITIONS OF MYOCARDIALINFARCTION. THE UPPER REFERENCE LIMIT (URL) OF TROPONIN, DEFINED THE 99TH PERCENTILE OFcTnI DISTRIBUTION IN A REFERENCE POPULATION, HAS BEEN CONFIRMED THE DECISION THRESHOLDFOR IA DIAGNOSIS. Performed By: #### SHIVAM Mcgee MP ####[facility] Lahpwoovoj45[address] [place] [address]Dr. Emelina Navarro URBANO 79 ng/mL Normal 16-96 [facility] Comment on above: Performed By: #### SHIVAM Mcgee MP ####[facility] Oemfnwskuh4602 [place] [address]Dr. Emelina Navarro CBC AUTO DIFFon 05-08-2022 BASO # 0.0 103/ul Normal 0.0-0.1 [facility] Comment on above: Performed By: #### C BC ####[facility] Asznhulkac5715 [place] [address]Dr. Emelina Navarro Basophils/100 WBC (Bld) 0.2 % Normal 0.2-2.0 [facility] Comment on above: Performed By: #### C BC ####[facility] Egzdopnsza9542 [place] [id number]. Emelina Navarro EO # 0.2 103/ul Normal 0.0-0.7 [facility] Comment on above: Performed By: #### C BC ####[facility] Aiwnkuyzst0214 [place] [id number]. Emelina Navarro Eosinophils/100 WBC (Bld) 1.3 % Normal 0.9-7.0 [facility] Comment on above: Performed By: #### C BC ####[facility] Usgkcjnvqp8297 [place] [address]Dr. Emelina Navarro Erythrocyte distribution width (RBC) [Ratio] 16.2 % Critically high 11.0-15.0 [facility] Comment on above: Performed By: #### C BC ####[facility] [address]wyp[address]ssv[address] [place], [place] [address]Dr. Emelina Navarro Hematocrit (Bld) [Volume fraction] 43.8 % Normal 42.0-54.0 [facility] Comment on above: Performed By: #### C BC ####[facility] Npnjphevsx7587 [place] [address]Dr. Emelina Navarro Hemoglobin (Bld) [Mass/Vol] 13.9 g/dL Critically low 14.0-18.0 [facility] Comment on above: Performed By: #### C BC ####[facility] Frjgflztgl5600 [place] [id number]. Emelina Navarro IG # 0.17 10e3/ul Critically high 0.00-0.03 [facility] Comment on above: Performed By: #### C BC ####[facility] Qglyfoeros5534 [place] [phone]. Emelina Navarro IG % 1.0 % Critically high 0.0-0.5 [facility] Comment on above: Performed By: #### C BC ####[facility] M[address]lthfte[address] [place], [place] [address]Dr. Emelina Navarro LYMPH # 1.1 103/ul Critically low 1.2-3.8 [facility] Comment on above: Performed By: #### C BC ####[facility] Zfikxsbfmd5944 [place] [phone]. Emelina Ramon Lymphocytes/100 WBC (Bld) 6.5 % Critically low 20.5-60.0 [facility] Comment on above: Performed By: #### C BC ####[facility] Hohuwgtmga6946 [place] [phone]. Emelina Navarro MANUAL DIFF REQ NO Normal [facility] Comment on above: Performed By: #### C BC ####[facility] Ahcrbarfdw6347 [place] [phone]. Awildanitza Navarro MCH (RBC) [Entitic mass] 28.8 pg Normal 25.9-34.0 [facility] Comment on above: Performed By: #### C BC ####[facility] [address]tdjnxvz[address] [place], [place] [id number]. Emelina Navarro MCHC (RBC) [Mass/Vol] 31.7 g/dL Normal 29.9-35.2 [facility] Comment on above: Performed By: #### C BC ####[facility] Aufiqsxmhy[address] [place], [place] [id number]. Awildanitza Navarro MCV (RBC) [Entitic vol] 90.9 fL Normal 80.0-94.0 [facility] Comment on above: Performed By: #### C BC ####[facility] Kpzqqcvskx045[address] [place] [phone]. Emelina Navarro MONO # 1.4 103/ul Critically high 0.3-0.8 [facility] Comment on above: Performed By: #### C BC ####[facility] Dhpotcvaxm[address] [place], [place] [id number]. Emelina Navarro Monocytes/100 WBC (Bld) 8.5 % Normal 1.7-12.0 [facility] Comment on above: Performed By: #### C BC ####[facility] Vsmeqhehjy[address] [place], [place] [id number]. Emelina Navarro NEUT # 13.9 103/ul Critically high 1.4-6.5 [facility] Comment on above: Performed By: #### C BC ####[facility] Tjukmjkntl4918 [place], [place] [address]Xz. Emelina Navarro Neutrophils/100 WBC (Bld) 82.5 % Critically high 43.0-75.0 [facility] Comment on above: Performed By: #### C BC ####[facility] Tuabskqfvn5793 [place] [phone]. Emelina Navarro Platelet mean volume (Bld) [Entitic vol] 9.8 fL Normal 9.5-13.5 [facility] Comment on above: Performed By: #### C BC ####[facility] Yyojpchzej0121 [place] [phone]. Emelina Navarro PLT 214 103/ul Normal 150-450 [facility] Comment on above: Performed By: #### C BC ####[facility] Ugopokxyoi0356 [place] [phone]. Emelina Navarro RBC 4.82 106/ul Normal 4.70-6.10 [facility] Comment on above: Performed By: #### C BC ####[facility] Ecfhsjhvcs0445 [place], [place] [address]Ut. Emelina Navarro WBC 16.8 103/ul Critically high 4.0-11.0 [facility] Comment on above: Performed By: #### C BC ####[facility] Lzgkuiurcp7822 [place] [phone]. Emelina Navarro CRPon 05-08-2022 CRP 2.5 mg/dL Critically high <=1.0 [facility] Comment on above: Performed By: #### C RP ####[facility] Qcgtzgvdxg7368 [place] [phone]. Emelina Navarro Covid-19 PCR (CVDTBH)on 04-20 SARS-CoV-2 (COVID-19) RNA RADHA+probe Ql (Unsp spec) Detected Critically abnormal NOT DETECTED [facility] Comment on above: Result Comment: This test is not yet approved or cleared by the [place] FDA. When there are no FDA-approved or cleared tests available, and other criteria are met, FDA can make tests available under an emergency access mechanism called an Emergency Use Authorization (EUA). The EUA for this test is supported by the [employer] Developer of Health and Human Service's declaration that [...] be used). Performed By: #### C VDTBH ####[facility] Ktczefayju6668 [place] [address]Dr. Emelina Navarro DIGOXINon 05-08-2022 DIG 0.9 ng/mL Normal 0.9-2.0 [facility] Comment on above: Performed By: #### D IG ####[facility] Hqmjnjuabo24[address] [place], [place] [address]Dr. Emelina Navarro LACTATE/LACTIC ACIDon 2021 Lactate [Moles/Vol] 1.6 mmol/L Normal 0.4-1.9 [facility] Comment on above: Performed By: #### L ACT ####[facility] Rpbldwnrrt220[address] [place], [place] [address]Dr. Emelina Navarro Lactate [Moles/Vol] 1.3 mmol/L Normal 0.4-1.9 [facility] Comment on above: Performed By: #### L ACT ####[facility] Qemyvqoawx892[address] [place], [place] [address]Dr. Emelina Navarro POINT OF CARE GLUCOSEon 04-20 Glucose [Mass/Vol] 244 mg/dL Critically high 74-106 [facility] Comment on above: Performed By: #### P OCGLUC ####[facility] Wowomcjgir8812[address] [place], [place] [address]Dr. Emelina Navarro Glucose [Mass/Vol] 405 mg/dL Critically high -106 [facility] Comment on above: Performed By: #### P OCGLUC ####[facility] Kcgexiuvfa33[address] [place], [place] [address]Dr. Emelina Navarro Glucose [Mass/Vol] 352 mg/dL Critically high 74-106 [facility] Comment on above: Performed By: #### P OCGLUC ####[facility] Rrjyqcriyq3488 [place] [address]Dr. Emelina Navarro Glucose [Mass/Vol] 285 mg/dL Critically high 74-106 [facility] Comment on above: Performed By: #### P OCGLUC ####[facility] Plhsaqppzp[address] [place], [place] [address]Dr. Emelina Navarro PROF CHEM 8 (BAS METB)on Anion gap [Moles/Vol] 13.7 mmol/L Normal [facility] Comment on above: Performed By: #### B MP ####[facility] Srwgzqgiae6095[address] [place], [place] [address]Dr. Emelina Navarro Calcium [Mass/Vol] 8.4 mg/dL Critically low 8.5-10.1 [facility] Comment on above: Performed By: #### B MP ####[facility] Dhttzozlpg[address] [place], [place] [address]Dr. Emelina Navarro Chloride [Moles/Vol] 93 mmol/L Critically low 98-107 [facility] Comment on above: Performed By: #### B MP ####[facility] Ztrceyfhpy9422[address] [place], [place] [address]Dr. Emelina Navarro CO2 [Moles/Vol] 26.4 mmol/L Normal 21.0-32.0 [facility] Comment on above: Performed By: #### B MP ####[facility] Blkreufvzi9680[address] [place], [place] [address]Dr. Emelina Navarro Creatinine [Mass/Vol] 2.23 mg/dL Critically high 0.70-1.30 [facility] Comment on above: Performed By: #### B MP ####[facility] Ayqlhieosy[address] [place], [place] [address]Dr. Emelina Navarro EGFR-AF [place] 36 mL/min/1.73m2 Critically low >=60 [facility] Comment on above: Performed By: #### B MP ####[facility] Hasaoeeuiy8035[address] [place], [place] [address]Dr. Emelina Navarro EGFR-NON AF [place] 30 mL/min/1.73m2 Critically low >=60 [facility] Comment on above: Performed By: #### B MP ####[facility] Vidicposco7964 [place] [phone]. Emelina Navarro Glucose [Mass/Vol] 451 mg/dL Critically high 74-106 [facility] Comment on above: Performed By: #### B MP ####[facility] Tnsplulygf6565 [place] [phone]. Emelina Navarro Potassium [Moles/Vol] 5.1 mmol/L Normal 3.5-5.1 [facility] Comment on above: Performed By: #### B MP ####[facility] Wrokjvbfve6289 [place] [address]Dr. Emelina Navarro Sodium [Moles/Vol] 128 mmol/L Critically low 136-145 [facility] Comment on above: Performed By: #### B MP ####[facility] Htddkiohvj8994 [place] [phone]. Emelina Navarro Urea nitrogen [Mass/Vol] 40.0 mg/dL Critically high 7.0-18.0 [facility] Comment on above: Performed By: #### B MP ####[facility] Dkfthocpsg7584 [place] [phone]. Emelina Navarro Urea nitrogen/Creatinine [Mass ratio] 17.9 mg/mg Normal [facility] Comment on above: Performed By: #### B MP ####[facility] Qdvpfqfsru1850 [place] [phone]. Emelina Navarro Anion gap [Moles/Vol] 13.7 mmol/L Normal [facility] Comment on above: Performed By: #### B VICTORINA, CMADM ####[facility] Phxajktmac6265 [place] [phone]. Emelina Navarro Calcium [Mass/Vol] 8.5 mg/dL Normal 8.5-10.1 [facility] Comment on above: Performed By: #### B VICTORINA, CMADM ####[facility] Uorolqgted64[address] [place], [place] [address]Dr. Emelnia Navarro Chloride [Moles/Vol] 98 mmol/L Normal 98-107 [facility] Comment on above: Performed By: #### B VICTORINA, SHIVAM ####[facility] Peayabmxxu0193 [place] [address]Dr. Emelina Navarro CO2 [Moles/Vol] 25.0 mmol/L Normal 21.0-32.0 [facility] Comment on above: Performed By: #### B VICTORINA, SHIVAM ####[facility] Oubgkfsszf5[address] [place] [address]Dr. Emelina Navarro Creatinine [Mass/Vol] 1.97 mg/dL Critically high 0.70-1.30 [facility] Comment on above: Performed By: #### B VICTORINA, SHIVAM ####[facility] Vyqpdrlegq4864 [place] [address]Dr. Emelina Navarro EGFR-AF [place] 41 mL/min/1.73m2 Critically low >=60 [facility] Comment on above: Performed By: #### B VICTORINA, SHIVAM ####[facility] Eercpppqqa4[address] [place], [place] [address]Dr. Emelina Navarro EGFR-NON AF [place] 34 mL/min/1.73m2 Critically low >=60 [facility] Comment on above: Performed By: #### B VICTORINA, SHIVAM ####[facility] Xkjddpjhcr0163 [place] [address]Dr. Emelina Navarro Glucose [Mass/Vol] 239 mg/dL Critically high 74-106 [facility] Comment on above: Performed By: #### B VICTORINA, CMADM ####[facility] Zznaldqqsg8496 [place] [address]Dr. Emelina Navarro Potassium [Moles/Vol] 5.7 mmol/L Critically high 3.5-5.1 [facility] Comment on above: Performed By: #### B VICTORINA, CARRIDM ####[facility] Nayjpcvcjx9610 [place] [address]Dr. Awildanitza Navarro Sodium [Moles/Vol] 131 mmol/L Critically low 136-145 [facility] Comment on above: Performed By: #### B SHIVAM PRAJAPATI ####[facility] Egzookjmvc0332 [place] [phone]. Emelina Navarro Urea nitrogen [Mass/Vol] 37.0 mg/dL Critically high 7.0-18.0 [facility] Comment on above: Performed By: #### B SHIVAM PRAJAPATI ####[facility] Sdamhcgxkm9846 [place] [address]Dr. Emelina Navarro Urea nitrogen/Creatinine [Mass ratio] 18.8 mg/mg Normal [facility] Comment on above: Performed By: #### B SHIVAM PRAJAPATI ####[facility] Likvpjpbhs5596 [place] [address]Dr. Emelina Navarro PROTIMEon 05-08-2022 INR Coag (PPP) [Relative time] 2.28 {INR} Normal [facility] Comment on above: Performed By: #### P T ####[facility] Lzpboypucq7586[address] [place], [place] [address]Dr. Emelina Navarro INR GUIDELINES SEE BELOW Normal The [facility] Comment on above: Result Comment: WENDY RED INR: 2.0 - 3.0 CONDITIONS NOT LISTED BELOW 2.5 - 3.5 FOR PROSTHETIC HEART VALVE REPLACEMENT 2.5 - 3.5 RECURRENT THROMBOSIS Performed By: #### P T ####[facility] Gfyozbqdcw827[address] [place], [place] [address]Dr. Emelina Navarro PT Coag (PPP) [Time] 23.3 s Critically high 9.0-11.6 [facility] Comment on above: Performed By: #### P T ####[facility] Ujuxssyryj3165[address] [place], [place] [address]Dr. Emelina Navarro US FERNY DOP LEG LTon 05-08-20 22 US FERNY DOP LEG LT Normal The [facility] XR CHEST 1 Von 05-08-2022 XR CHEST 1 V Normal [facility] CBC AUTO DIFFon 05-02-2022 BASO # 0.0 103/ul Normal 0.0-0.1 [facility] Comment on above: Performed By: #### C BC ####[facility] Eeoaaycrrd0946[address] [place], [place] [address]DrWesley Navarro Basophils/100 WBC (Bld) 0.2 % Normal 0.2-2.0 [facility] Comment on above: Performed By: #### C BC ####[facility] Wbbqnjyndw4142 [place] [phone]. Emelina Navarro EO # 0.0 103/ul Normal 0.0-0.7 [facility] Comment on above: Performed By: #### C BC ####[facility] Zxcfpoaerf080[address] [place], [place] [address]Dr. Emelina Navarro Eosinophils/100 WBC (Bld) 0.2 % Critically low 0.9-7.0 [facility] Comment on above: Performed By: #### C BC ####[facility] Ixzwchvbrc080[address] [place], [place] [address]Dr. Emelina Navarro Erythrocyte distribution width (RBC) [Ratio] 16.5 % Critically high 11.0-15.0 [facility] Comment on above: Performed By: #### C BC ####[facility] Xslrwgytwe266099 [address] [place], [place] [address]Dr. Emelina Navarro Hematocrit (Bld) [Volume fraction] 42.0 % Normal 42.0-54.0 [facility] Comment on above: Performed By: #### C BC ####[facility] Frzbvpfmny190[address] [place], [place] [address]Dr. Emelina Navarro Hemoglobin (Bld) [Mass/Vol] 13.3 g/dL Critically low 14.0-18.0 [facility] Comment on above: Performed By: #### C BC ####[facility] Xgsmhfwgli9337[address] [place], [place] [address]Dr. Emelina Navarro IG # 0.14 10e3/ul Critically high 0.00-0.03 The [facility] Comment on above: Performed By: #### C BC ####[facility] Pblntndyyu[address] [place], [place] [address]Dr. Emelina Navarro IG % 1.1 % Critically high 0.0-0.5 The [facility] Comment on above: Performed By: #### C BC ####[facility] Msjpycvyyu8785 [place] [address]Dr. Emelina Ramon LYMPH # 1.3 103/ul Normal 1.2-3.8 [facility] Comment on above: Performed By: #### C BC ####[facility] Qhovfcltxw2348 [place] [address]Dr. Emelina Ramon Lymphocytes/100 WBC (Bld) 9.8 % Critically low 20.5-60.0 [facility] Comment on above: Performed By: #### C BC ####[facility] Xnndddxxti4135 [place] [address]Dr. Emelina Ramon MANUAL DIFF REQ NO Normal [facility] Comment on above: Performed By: #### C BC ####[facility] Ggkbzupqtx8094 [place] [address]Dr. Emelian Ramon MCH (RBC) [Entitic mass] 28.9 pg Normal 25.9-34.0 [facility] Comment on above: Performed By: #### C BC ####[facility] Cjksnlnlvx[address] [place], [place] [address]Dr. Emelina Navarro MCHC (RBC) [Mass/Vol] 31.7 g/dL Normal 29.9-35.2 [facility] Comment on above: Performed By: #### C BC ####[facility] Dpzadheagm1118 [place] [address]Dr. Emelina Ramon MCV (RBC) [Entitic vol] 91.1 fL Normal 80.0-94.0 [facility] Comment on above: Performed By: #### C BC ####[facility] Gihvihallf5004 [place] [address]Dr. Emelina Ramon MONO # 1.2 103/ul Critically high 0.3-0.8 The [facility] Comment on above: Performed By: #### C BC ####[facility] Pmpmmxbakz[address] [place], [place] [address]Dr. Emelina Ramon Monocytes/100 WBC (Bld) 9.6 % Normal 1.7-12.0 [facility] Comment on above: Performed By: #### C BC ####[facility] Wawknhklbv1054 [place] [phone]. Emelina Navarro NEUT # 10.1 103/ul Critically high 1.4-6.5 [facility] Comment on above: Performed By: #### C BC ####[facility] Thkwclecpf3406 [place] [phone]. Emelina Navarro Neutrophils/100 WBC (Bld) 79.1 % Critically high 43.0-75.0 [facility] Comment on above: Performed By: #### C BC ####[facility] Canuvqxgmk3504 [place] [phone]. Emelina Navarro Platelet mean volume (Bld) [Entitic vol] 10.0 fL Normal 9.5-13.5 [facility] Comment on above: Performed By: #### C BC ####[facility] Mjcqzezgmr1729 [place] [address]Dr. Emelina Navarro PLT 188 103/ul Normal 150-450 [facility] Comment on above: Performed By: #### C BC ####[facility] Ezedcpzyib9019 [place] [phone]. Emelina Navarro RBC 4.61 106/ul Critically low 4.70-6.10 [facility] Comment on above: Performed By: #### C BC ####[facility] Jghmfbmpaq2973 [place] [address]Dr. Emelina Navarro WBC 12.8 103/ul Critically high 4.0-11.0 [facility] Comment on above: Performed By: #### C BC ####[facility] Ooygnycqfk4996 [place] [phone]. Emelina Navarro NM HEPATOBILIARY SCAN W EFon 05-02-2022 NM HEPATOBILIARY SCAN W EF Normal [facility] PROF 14(COMP METB)on 022 Albumin [Mass/Vol] 2.7 g/dL Critically low 3.4-5.0 [facility] Comment on above: Performed By: #### C MP ####[facility] Dleroixiwj6445 [place] [address]Dr. Emelina Navarro Albumin/Globulin [Mass ratio] 0.7 {ratio} Normal [facility] Comment on above: Performed By: #### C MP ####[facility] Hyalgmyytn4338 [place] [address]Dr. Emelina Navarro ALP [Catalytic activity/Vol] 65 U/L Normal 46-116 [facility] Comment on above: Performed By: #### C MP ####[facility] Wkbcgvyfiq0354 [place] [address]Dr. Emelina Navarro ALT [Catalytic activity/Vol] 406 U/L Critically high 16-63 [facility] Comment on above: Performed By: #### C MP ####[facility] Yitnkwncvj4190 [place] [address]Dr. Emelina Ramon Anion gap [Moles/Vol] 8.1 mmol/L Normal [facility] Comment on above: Performed By: #### C MP ####[facility] Cicztnndqb04[address] [place], [place] [address]Dr. Emelina Ramon AST [Catalytic activity/Vol] 101 U/L Critically high 15-37 [facility] Comment on above: Performed By: #### C MP ####[facility] Vurpqoizeo5356[address] [place], [place] [address]Dr. Emelina Ramon Bilirubin [Mass/Vol] 0.6 mg/dL Normal 0.2-1.0 [facility] Comment on above: Performed By: #### C MP ####[facility] Nmjnuhvpef9592[address] [place], [place] [address]Dr. Awildanitza Ramon Calcium [Mass/Vol] 7.7 mg/dL Critically low 8.5-10.1 [facility] Comment on above: Performed By: #### C MP ####[facility] Edgfygcvrs3612 [place] [address]Dr. Emelina Navarro Chloride [Moles/Vol] 104 mmol/L Normal 98-107 [facility] Comment on above: Performed By: #### C MP ####[facility] Kudjpxhutw6434 [place] [address]Dr. Emelina Navarro CO2 [Moles/Vol] 30.9 mmol/L Normal 21.0-32.0 [facility] Comment on above: Performed By: #### C MP ####[facility] Ybaqxbphya0442 [place] [phone]. Emelina Navarro Creatinine [Mass/Vol] 1.54 mg/dL Critically high 0.70-1.30 [facility] Comment on above: Performed By: #### C MP ####[facility] Gklchknfox5007 [place] [phone]. Emelina Navarro EGFR-AF [place] 55 mL/min/1.73m2 Critically low >=60 [facility] Comment on above: Performed By: #### C MP ####[facility] Tzgcmltctl1431 [place] [phone]. Emelina Navarro EGFR-NON AF [place] 45 mL/min/1.73m2 Critically low >=60 [facility] Comment on above: Performed By: #### C MP ####[facility] Mdrozcvian8697 [place] [address]Dr. Emelina Navarro Globulin (S) [Mass/Vol] 3.8 g/dL Normal [facility] Comment on above: Performed By: #### C MP ####[facility] Avrmmuiahg1182 [place] [address]Dr. Emelina Navarro Glucose [Mass/Vol] 177 mg/dL Critically high 74-106 [facility] Comment on above: Performed By: #### C MP ####[facility] Dxbnfijjfj9986 [place] [address]Dr. Emelina Navarro Potassium [Moles/Vol] 4.0 mmol/L Normal 3.5-5.1 [facility] Comment on above: Performed By: #### C MP ####[facility] Pztrnkmcbg1127 [place] [address]Dr. Emelina Navarro Protein [Mass/Vol] 6.5 g/dL Normal 6.4-8.2 The [facility] Comment on above: Performed By: #### C MP ####[facility] Pkucopdylj4542 [place] [address]Dr. Emelina Navarro Sodium [Moles/Vol] 139 mmol/L Normal 136-145 [facility] Comment on above: Performed By: #### C MP ####[facility] Ajqltrbbxg4116 [place] [address]Dr. Emelina Navarro Urea nitrogen [Mass/Vol] 38.0 mg/dL Critically high 7.0-18.0 [facility] Comment on above: Performed By: #### C MP ####[facility] Deaxasnrtn[address] [place], [place] [address]Dr. Emelina Navarro Urea nitrogen/Creatinine [Mass ratio] 24.7 mg/mg Normal [facility] Comment on above: Performed By: #### C MP ####[facility] Otdtuvhtbg9526[address] [place], [place] [address]Dr. Emelina Navarro PROTIMEon 05-02-2022 INR Coag (PPP) [Relative time] 2.57 {INR} Normal [facility] Comment on above: Performed By: #### P T ####[facility] Dhouffekbc7534[address] [place], [place] [address]Dr. Emelina Navarro INR GUIDELINES SEE BELOW Normal The [facility] Comment on above: Result Comment: WENDY RED INR: 2.0 - 3.0 CONDITIONS NOT LISTED BELOW 2.5 - 3.5 FOR PROSTHETIC HEART VALVE REPLACEMENT 2.5 - 3.5 RECURRENT THROMBOSIS Performed By: #### P T ####[facility] Fjpwlhdnmi1223[address] [place], [place] [address]Dr. Emelina Navarro PT Coag (PPP) [Time] 26.1 s Critically high 9.0-11.6 [facility] Comment on above: Performed By: #### P T ####[facility] Dpgrcqysil702[address] [place], [place] [address]Dr. Emelina Navarro CBC AUTO DIFFon 05-01-2022 BASO # 0.0 103/ul Normal 0.0-0.1 [facility] Comment on above: Performed By: #### C BC ####[facility] Wtxrvicjyh37[address] [place], [place] [address]Dr. Emelina Navarro Basophils/100 WBC (Bld) 0.1 % Critically low 0.2-2.0 [facility] Comment on above: Performed By: #### C BC ####[facility] Fjfnovscgd9010 [place] [phone]. Emelina Navarro EO # 0.0 103/ul Normal 0.0-0.7 [facility] Comment on above: Performed By: #### C BC ####[facility] Purfcncwzh9527 [place] [phone]. Emelina Navarro Eosinophils/100 WBC (Bld) 0.0 % Critically low 0.9-7.0 [facility] Comment on above: Performed By: #### C BC ####[facility] Tovbfpvlja4456 [place] [phone]. Emelina Navarro Erythrocyte distribution width (RBC) [Ratio] 16.5 % Critically high 11.0-15.0 [facility] Comment on above: Performed By: #### C BC ####[facility] Romhdzkwpc2072 [place] [phone]. Emelina Navarro Hematocrit (Bld) [Volume fraction] 41.5 % Critically low 42.0-54.0 [facility] Comment on above: Performed By: #### C BC ####[facility] Pyznhatpjv7210 [place] [phone]. Emelina Navarro Hemoglobin (Bld) [Mass/Vol] 13.5 g/dL Critically low 14.0-18.0 [facility] Comment on above: Performed By: #### C BC ####[facility] Ofoptpbiym7549 [place] [phone]. Emelina Navarro IG # 0.12 10e3/ul Critically high 0.00-0.03 [facility] Comment on above: Performed By: #### C BC ####[facility] Wprvpwchbu6203 [place] [phone]. Emelina Navarro IG % 0.7 % Critically high 0.0-0.5 [facility] Comment on above: Performed By: #### C BC ####[facility] Hmshtoxlfy4974 [place] [phone]. Emelina Navarro LYMPH # 0.8 103/ul Critically low 1.2-3.8 [facility] Comment on above: Performed By: #### C BC ####[facility] Dlaovnbmyb8724 [place] [phone]. Awildanitza Navarro Lymphocytes/100 WBC (Bld) 4.7 % Critically low 20.5-60.0 [facility] Comment on above: Performed By: #### C BC ####[facility] Qowatwsfms5706 [place] [phone]. Emelina Navarro MANUAL DIFF REQ NO Normal [facility] Comment on above: Performed By: #### C BC ####[facility] S[address]jdrxyxk[address] [place], [place] [id number]. Emelina Navarro MCH (RBC) [Entitic mass] 28.9 pg Normal 25.9-34.0 [facility] Comment on above: Performed By: #### C BC ####[facility] Kwgwijhsic36[address] [place], [place] [address]Dr. Emelina Navarro MCHC (RBC) [Mass/Vol] 32.5 g/dL Normal 29.9-35.2 [facility] Comment on above: Performed By: #### C BC ####[facility] Xphbyujjqm7[address] [place], [place] [address]Dr. Emelina Navarro MCV (RBC) [Entitic vol] 88.9 fL Normal 80.0-94.0 [facility] Comment on above: Performed By: #### C BC ####[facility] Wihnrmyxur[address] [place], [place] [address]Dr. Emelina Navarro MONO # 1.0 103/ul Critically high 0.3-0.8 The [facility] Comment on above: Performed By: #### C BC ####[facility] Pgotcvxxdz6460[address] [place], [place] [address]Dr. Emelina Navarro Monocytes/100 WBC (Bld) 6.5 % Normal 1.7-12.0 [facility] Comment on above: Performed By: #### C BC ####[facility] Hvwqzzrkgw[address] [place], [place] [address]Dr. Emelina Navarro NEUT # 14.1 103/ul Critically high 1.4-6.5 The [facility] Comment on above: Performed By: #### C BC ####[facility] Sqyphqguer3[address] [place] [phone]. Emelina Navarro Neutrophils/100 WBC (Bld) 88.0 % Critically high 43.0-75.0 [facility] Comment on above: Performed By: #### C BC ####[facility] Ztndtiucvo8711 [place] [phone]. Emelina Navarro Platelet mean volume (Bld) [Entitic vol] 9.9 fL Normal 9.5-13.5 [facility] Comment on above: Performed By: #### C BC ####[facility] Iecoagwvgb7798 [place] [phone]. Emelina Navarro PLT 185 103/ul Normal 150-450 [facility] Comment on above: Performed By: #### C BC ####[facility] Nrvqqyvxag6624 [place] [phone]. Awildanitza Navarro RBC 4.67 106/ul Critically low 4.70-6.10 The [facility] Comment on above: Performed By: #### C BC ####[facility] Naykpnecsk4705 [place] [phone]. Emelina Navarro WBC 16.1 103/ul Critically high 4.0-11.0 [facility] Comment on above: Performed By: #### C BC ####[facility] Jbxstegaho0629 [place] [phone]. Emelina Navarro LIVER PROFILEon 05-01-2022 Albumin/Globulin [Mass ratio] 0.7 {ratio} Normal [facility] Comment on above: Performed By: #### L IVER ####[facility] Uojiixseju9663 [place] [phone]. Emelina Navarro ALP [Catalytic activity/Vol] 71 U/L Normal 46-116 [facility] Comment on above: Performed By: #### L IVER ####[facility] Mfnpajekhi2432 [place] [phone]. Emelina Navarro ALT [Catalytic activity/Vol] 558 U/L Critically high 16-63 [facility] Comment on above: Performed By: #### L IVER ####[facility] Ywsqvuongv54[address] [place], [place] [address]Dr. Emelina Navarro AST [Catalytic activity/Vol] 220 U/L Critically high 15-37 [facility] Comment on above: Performed By: #### L IVER ####[facility] Xtyektpqel435[address] [place], [place] [address]Dr. Emelina Navarro BILI, CONJUGATED 0.2 mg/dL Normal 0.0-0.2 The [facility] Comment on above: Performed By: #### L IVER ####[facility] Ozbxgovqiu416299 [address] [place], [place] [address]Dr. Emelina Navarro Bilirubin [Mass/Vol] 0.5 mg/dL Normal 0.2-1.0 [facility] Comment on above: Performed By: #### L IVER ####[facility] Znugwsxztq762499 [address] [place], [place] [address]Dr. Emelina Navarro Globulin (S) [Mass/Vol] 3.9 g/dL Normal [facility] Comment on above: Performed By: #### L IVER ####[facility] Iahczyuanp5525[address] [place], [place] [address]Dr. Emelina Navarro Protein [Mass/Vol] 6.8 g/dL Normal 6.4-8.2 [facility] Comment on above: Performed By: #### L IVER ####[facility] Ymrjztioys1594[address] [place], [place] [address]Dr. Emelina Navarro POINT OF CARE GLUCOSEon 04-19 Glucose [Mass/Vol] 205 mg/dL Critically high 74-106 [facility] Comment on above: Performed By: #### P OCGLUC ####[facility] Rgyxwmhgwg568[address] [place], [place] [address]Dr. Emelina Navarro PROF 14(COMP METB)on 022 Albumin [Mass/Vol] 2.9 g/dL Critically low 3.4-5.0 [facility] Comment on above: Performed By: #### C MP ####[facility] Dklptzlzgk92[address] [place], [place] [address]Dr. Emelina Navarro Performed By: #### L IVER ####[facility] Bprticqrfz7454 [place] [phone]. Emelina Navarro Albumin/Globulin [Mass ratio] 0.8 {ratio} Normal [facility] Comment on above: Performed By: #### C MP ####[facility] Xkiwtestkv4293 [place] [address]Dr. Emelina Navarro ALP [Catalytic activity/Vol] 70 U/L Normal 46-116 [facility] Comment on above: Performed By: #### C MP ####[facility] Mtcsaqrloz8370 [place] [address]Dr. Emelina Navarro ALT [Catalytic activity/Vol] 552 U/L Critically high 16-63 [facility] Comment on above: Performed By: #### C MP ####[facility] Baifmvixwx1976[address] [place], [place] [address]Dr. Emelina Navarro Anion gap [Moles/Vol] 14.2 mmol/L Normal [facility] Comment on above: Performed By: #### C MP ####[facility] Ujplwgxvrq2505[address] [place], [place] [address]Dr. Emelina Navarro AST [Catalytic activity/Vol] 214 U/L Critically high 15-37 [facility] Comment on above: Performed By: #### C MP ####[facility] Pkscensrtx0927[address] [place], [place] [address]Dr. Emelina Navarro Bilirubin [Mass/Vol] 0.6 mg/dL Normal 0.2-1.0 [facility] Comment on above: Performed By: #### C MP ####[facility] Okhvqhibrs37[address] [place], [place] [address]Dr. Emelina Navarro Calcium [Mass/Vol] 7.9 mg/dL Critically low 8.5-10.1 [facility] Comment on above: Performed By: #### C MP ####[facility] Evjpgrcihp9905[address] [place], [place] [address]Dr. Emelina Navarro Chloride [Moles/Vol] 103 mmol/L Normal 98-107 [facility] Comment on above: Performed By: #### C MP ####[facility] Wxgpmennbf7125 [place] [phone]. Emelina Navarro CO2 [Moles/Vol] 25.0 mmol/L Normal 21.0-32.0 [facility] Comment on above: Performed By: #### C MP ####[facility] Bierihovjr9324 [place] [phone]. Emelina Navarro Creatinine [Mass/Vol] 1.58 mg/dL Critically high 0.70-1.30 [facility] Comment on above: Performed By: #### C MP ####[facility] Jbichsmxgw0234 [place] [phone]. Emelina Navarro EGFR-AF [place] 53 mL/min/1.73m2 Critically low >=60 [facility] Comment on above: Performed By: #### C MP ####[facility] Ijuqefhtdc2791 [place] [phone]. Emelina Navarro EGFR-NON AF [place] 44 mL/min/1.73m2 Critically low >=60 [facility] Comment on above: Performed By: #### C MP ####[facility] Qtnbnympaz8142 [place] [phone]. Emelina Navarro Globulin (S) [Mass/Vol] 3.8 g/dL Normal [facility] Comment on above: Performed By: #### C MP ####[facility] Fmgciuekgx3640 [place] [phone]. Emelina Navarro Glucose [Mass/Vol] 267 mg/dL Critically high 74-106 [facility] Comment on above: Performed By: #### C MP ####[facility] Eosovuzxlm5426 [place] [phone]. Emelina Navarro Potassium [Moles/Vol] 3.2 mmol/L Critically low 3.5-5.1 [facility] Comment on above: Performed By: #### C MP ####[facility] Ueqyxlvhnk2371 [place] [phone]. Emelina Navarro Protein [Mass/Vol] 6.7 g/dL Normal 6.4-8.2 [facility] Comment on above: Performed By: #### C MP ####[facility] Zuwecvuhqr8929 [place] [address]Dr. Emelina Navarro Sodium [Moles/Vol] 139 mmol/L Normal 136-145 [facility] Comment on above: Performed By: #### C MP ####[facility] Dqrrutstfg1235 [place] [address]Dr. Emelina Navarro Urea nitrogen [Mass/Vol] 43.0 mg/dL Critically high 7.0-18.0 [facility] Comment on above: Performed By: #### C MP ####[facility] Pzwbyjkwxg6252 [place] [address]Dr. Emelina Navarro Urea nitrogen/Creatinine [Mass ratio] 27.2 mg/mg Normal [facility] Comment on above: Performed By: #### C MP ####[facility] Jucinmkibe8850[address] [place], [place] [address]Dr. Emelina Navarro PROTIMEon 05-01-2022 INR Coag (PPP) [Relative time] 2.57 {INR} Normal [facility] Comment on above: Performed By: #### P T ####[facility] Gdryjtplpk8[address] [place], [place] [address]Dr. Emelina Navarro INR GUIDELINES SEE BELOW Normal [facility] Comment on above: Result Comment: WENDY RED INR: 2.0 - 3.0 CONDITIONS NOT LISTED BELOW 2.5 - 3.5 FOR PROSTHETIC HEART VALVE REPLACEMENT 2.5 - 3.5 RECURRENT THROMBOSIS Performed By: #### P T ####[facility] Wlehzawuco[address] [place], [place] [address]Dr. Emelina Navarro PT Coag (PPP) [Time] 26.1 s Critically high 9.0-11.6 [facility] Comment on above: Performed By: #### P T ####[facility] Igtofwojxx517799 [address] [place], [place] [address]Dr. Emelina Navarro CBC AUTO DIFFon 04-30-2022 BASO # 0.0 103/ul Normal 0.0-0.1 [facility] Comment on above: Performed By: #### C BC ####[facility] Olmugrpayd[address] [place], [place] [id number]. Emelina Navarro Basophils/100 WBC (Bld) 0.1 % Critically low 0.2-2.0 [facility] Comment on above: Performed By: #### C BC ####[facility] Tnymkdynkv7785 [place] [address]Dr. Emelina Navarro EO # 0.0 103/ul Normal 0.0-0.7 [facility] Comment on above: Performed By: #### C BC ####[facility] Ujfleusvbl4[address] [place], [place] [address]Dr. Emelina Navarro Eosinophils/100 WBC (Bld) 0.0 % Critically low 0.9-7.0 [facility] Comment on above: Performed By: #### C BC ####[facility] Lwkzskuopu2565[address] [place], [place] [address]Dr. Emelina Navarro Erythrocyte distribution width (RBC) [Ratio] 16.4 % Critically high 11.0-15.0 [facility] Comment on above: Performed By: #### C BC ####[facility] Szmfgelepp953[address] [place], [place] [address]Dr. Emelina Navarro Hematocrit (Bld) [Volume fraction] 40.9 % Critically low 42.0-54.0 [facility] Comment on above: Performed By: #### C BC ####[facility] Tkpzdkjdor15[address] [place], [place] [address]Dr. Emelina Navarro Hemoglobin (Bld) [Mass/Vol] 13.3 g/dL Critically low 14.0-18.0 [facility] Comment on above: Performed By: #### C BC ####[facility] Vdqhukcubr8140[address] [place], [place] [address]Dr. Emelina Navarro IG # 0.11 10e3/ul Critically high 0.00-0.03 The [facility] Comment on above: Performed By: #### C BC ####[facility] Yviqbkgije7900[address] [place], [place] [address]Dr. Emelina Navarro IG % 0.5 % Normal 0.0-0.5 [facility] Comment on above: Performed By: #### C BC ####[facility] Vuepjilsuj2084 [place], [place] [address]Rv. Emelina Ramon LYMPH # 0.8 103/ul Critically low 1.2-3.8 The [facility] Comment on above: Performed By: #### C BC ####[facility] Dqrialsmut7087 [place], [place] [address]Gx. Emelina Navarro Lymphocytes/100 WBC (Bld) 3.9 % Critically low 20.5-60.0 [facility] Comment on above: Performed By: #### C BC ####[facility] Jcicplumce4627 [place] [phone]. Awildanitza Navarro MANUAL DIFF REQ NO Normal [facility] Comment on above: Performed By: #### C BC ####[facility] Wmpnvlmqoz0722 [place] [phone]. Emelina Ramon MCH (RBC) [Entitic mass] 29.0 pg Normal 25.9-34.0 [facility] Comment on above: Performed By: #### C BC ####[facility] Pebscbmezo8734 [place] [phone]. Emelina Navarro MCHC (RBC) [Mass/Vol] 32.5 g/dL Normal 29.9-35.2 [facility] Comment on above: Performed By: #### C BC ####[facility] Xdilfrjhut0893 [place] [phone]. Emelina Ramon MCV (RBC) [Entitic vol] 89.1 fL Normal 80.0-94.0 [facility] Comment on above: Performed By: #### C BC ####[facility] Utuuhpmcal2457 [place] [phone]. Emelina Ramon MONO # 0.9 103/ul Critically high 0.3-0.8 [facility] Comment on above: Performed By: #### C BC ####[facility] Knazowzlcj3786 [place] [phone]. Emelina Ramon Monocytes/100 WBC (Bld) 4.2 % Normal 1.7-12.0 [facility] Comment on above: Performed By: #### C BC ####[facility] Rsyjwsiyyl2403 [place] [phone]. Emelina Navarro NEUT # 18.5 103/ul Critically high 1.4-6.5 [facility] Comment on above: Performed By: #### C BC ####[facility] Onmsfuoqkc5536 [place] [phone]. Emelina Navarro Neutrophils/100 WBC (Bld) 91.3 % Critically high 43.0-75.0 [facility] Comment on above: Performed By: #### C BC ####[facility] Emooyxnkdl2431 [place] [phone]. Emelina Navarro Platelet mean volume (Bld) [Entitic vol] 10.9 fL Normal 9.5-13.5 [facility] Comment on above: Performed By: #### C BC ####[facility] Lcygvqfuwo9560 [place] [phone]. Awildanitza Ramon PLT 162 103/ul Normal 150-450 [facility] Comment on above: Performed By: #### C BC ####[facility] Zfqvyulrmq7603 [place] [phone]. Emelina Navarro RBC 4.59 106/ul Critically low 4.70-6.10 [facility] Comment on above: Performed By: #### C BC ####[facility] Uoqzaonqxu2689 [place] [phone]. Emelina Navarro WBC 20.3 103/ul Critically high 4.0-11.0 [facility] Comment on above: Performed By: #### C BC ####[facility] Ijxiyqtfqi8146 [place] [phone]. Emelina Navarro PROF 14(COMP METB)on 022 Albumin [Mass/Vol] 2.8 g/dL Critically low 3.4-5.0 [facility] Comment on above: Performed By: #### C MP ####[facility] Apfbmllowz7929 [place] [phone]. Emelina Navarro Albumin/Globulin [Mass ratio] 0.7 {ratio} Normal [facility] Comment on above: Performed By: #### C MP ####[facility] Ktktcmlvzz3326 [place] [phone]. Emelina Navarro ALP [Catalytic activity/Vol] 65 U/L Normal 46-116 [facility] Comment on above: Performed By: #### C MP ####[facility] Ymbfhjqrcz3039 [place] [phone]. Emelina Navarro ALT [Catalytic activity/Vol] 467 U/L Critically high 16-63 [facility] Comment on above: Performed By: #### C MP ####[facility] Vpwjtrgxdr5197 [place] [phone]. Emelina Navarro Anion gap [Moles/Vol] 15.3 mmol/L Normal [facility] Comment on above: Performed By: #### C MP ####[facility] Lawriiqzjb1779 [place] [phone]. Emelina Navarro AST [Catalytic activity/Vol] 239 U/L Critically high 15-37 [facility] Comment on above: Performed By: #### C MP ####[facility] Dfgtvovjpa3079 [place] [phone]. Emelina Navarro Bilirubin [Mass/Vol] 0.7 mg/dL Normal 0.2-1.0 [facility] Comment on above: Performed By: #### C MP ####[facility] Jdyrxqvypf5213 [place] [phone]. Emelina Navarro Calcium [Mass/Vol] 7.9 mg/dL Critically low 8.5-10.1 [facility] Comment on above: Performed By: #### C MP ####[facility] Esrcriqxmx2410 [place] [phone]. Emelina Navarro Chloride [Moles/Vol] 106 mmol/L Normal 98-107 [facility] Comment on above: Performed By: #### C MP ####[facility] Esdzzgadlf3913 [place] [phone]. Emelina Navarro CO2 [Moles/Vol] 23.3 mmol/L Normal 21.0-32.0 [facility] Comment on above: Performed By: #### C MP ####[facility] Axlefmiboy7302 [place] [phone]. Emelina Navarro Creatinine [Mass/Vol] 1.71 mg/dL Critically high 0.70-1.30 [facility] Comment on above: Performed By: #### C MP ####[facility] Oozwnioivk4274 [place], [place] [address]Ck. Emelina Navarro EGFR-AF [place] 49 mL/min/1.73m2 Critically low >=60 [facility] Comment on above: Performed By: #### C MP ####[facility] Lndhchveec5519 [place] [phone]. Emelina Navarro EGFR-NON AF [place] 40 mL/min/1.73m2 Critically low >=60 [facility] Comment on above: Performed By: #### C MP ####[facility] Rodbunmbug4938 [place] [phone]. Emelina Navarro Globulin (S) [Mass/Vol] 3.9 g/dL Normal [facility] Comment on above: Performed By: #### C MP ####[facility] Kgbnpmaqwg7964 [place] [phone]. Emelina Navarro Glucose [Mass/Vol] 233 mg/dL Critically high 74-106 [facility] Comment on above: Performed By: #### C MP ####[facility] Zolazddsbz2429 [place] [phone]. Emelina Navarro Potassium [Moles/Vol] 3.6 mmol/L Normal 3.5-5.1 [facility] Comment on above: Performed By: #### C MP ####[facility] Uzchgldhsr4050 [place] [phone]. Emelina Navarro Protein [Mass/Vol] 6.7 g/dL Normal 6.4-8.2 [facility] Comment on above: Performed By: #### C MP ####[facility] Rhnrxdzswq5787 [place] [phone]. Emelina Navarro Sodium [Moles/Vol] 141 mmol/L Normal 136-145 [facility] Comment on above: Performed By: #### C MP ####[facility] Fdzgiemhee6396 [place] [address]Dr. Emelina Ramon Urea nitrogen [Mass/Vol] 46.0 mg/dL Critically high 7.0-18.0 [facility] Comment on above: Performed By: #### C MP ####[facility] Cugjsrfzve46[address] [place], [place] [address]Dr. Awildanitza Navarro Urea nitrogen/Creatinine [Mass ratio] 26.9 mg/mg Normal [facility] Comment on above: Performed By: #### C MP ####[facility] Sdqgdbzjym9[address] [place], [place] [address]Dr. Awildanitza Navarro XR CHEST 2 Von 04-30-2022 XR CHEST 2 V Normal [facility] CBC AUTO DIFFon 04-29-2022 BASO # 0.0 103/ul Normal 0.0-0.1 [facility] Comment on above: Performed By: #### C BC ####[facility] Gyjrvezmqk745499 [address] [place], [place] [address]Dr. Emelina Navarro Basophils/100 WBC (Bld) 0.1 % Critically low 0.2-2.0 [facility] Comment on above: Performed By: #### C BC ####[facility] Jwtcwvtdtn3566[address] [place], [place] [address]Dr. Emelina Navarro EO # 0.0 103/ul Normal 0.0-0.7 [facility] Comment on above: Performed By: #### C BC ####[facility] Jsubjdwbkg202099 [address] [place], [place] [address]Dr. Emelina Navarro Eosinophils/100 WBC (Bld) 0.0 % Critically low 0.9-7.0 [facility] Comment on above: Performed By: #### C BC ####[facility] Zqkgtmtbsh1035[address] [place], [place] [address]Dr. Emelina Navarro Erythrocyte distribution width (RBC) [Ratio] 16.2 % Critically high 11.0-15.0 [facility] Comment on above: Performed By: #### C BC ####[facility] Wugzpryqva345099 [address] [place], [place] [address]Dr. Emelina Navarro Hematocrit (Bld) [Volume fraction] 40.6 % Critically low 42.0-54.0 [facility] Comment on above: Performed By: #### C BC ####[facility] Jxesdqhusz0922 [place] [address]Dr. Emelina Navarro Hemoglobin (Bld) [Mass/Vol] 13.2 g/dL Critically low 14.0-18.0 [facility] Comment on above: Performed By: #### C BC ####[facility] Yvhraawuzo3726[address] [place], [place] [address]DrWesley Navarro IG # 0.11 10e3/ul Critically high 0.00-0.03 [facility] Comment on above: Performed By: #### C BC ####[facility] Fmfzmcmcvd520499 [address] [place], [place] [address]DrWesley Navarro IG % 0.6 % Critically high 0.0-0.5 [facility] Comment on above: Performed By: #### C BC ####[facility] Ednugbpwcg677[address] [place], [place] [address]DrWesley Navarro LYMPH # 1.1 103/ul Critically low 1.2-3.8 The [facility] Comment on above: Performed By: #### C BC ####[facility] Xdddkbgoir6325[address] [place], [place] [address]DrWesley Navarro Lymphocytes/100 WBC (Bld) 5.6 % Critically low 20.5-60.0 [facility] Comment on above: Performed By: #### C BC ####[facility] Uxzgdrvgwt770499 [address] [place], [place] [address]DrWesley Navarro MANUAL DIFF REQ NO Normal [facility] Comment on above: Performed By: #### C BC ####[facility] Ymyfphferd631699 [address] [place], [place] [address]DrWesley Navarro MCH (RBC) [Entitic mass] 29.1 pg Normal 25.9-34.0 [facility] Comment on above: Performed By: #### C BC ####[facility] Ypzqmbddac646399 [address] [place], [place] [address]DrWesley Navarro MCHC (RBC) [Mass/Vol] 32.5 g/dL Normal 29.9-35.2 [facility] Comment on above: Performed By: #### C BC ####[facility] Cmyulwolig2025[address] [place], [place] [address]DrWesley Emelina Ramon MCV (RBC) [Entitic vol] 89.4 fL Normal 80.0-94.0 [facility] Comment on above: Performed By: #### C BC ####[facility] Xsuxxticlf315[address] [place], [place] [address]DrWesley Navarro MONO # 0.6 103/ul Normal 0.3-0.8 [facility] Comment on above: Performed By: #### C BC ####[facility] Jiygwcihku3342[address] [place], [place] [address]DrWesley Navarro Monocytes/100 WBC (Bld) 3.2 % Normal 1.7-12.0 [facility] Comment on above: Performed By: #### C BC ####[facility] Qvstohwfgg2392[address] [place], [place] [address]DrWesley Navarro NEUT # 17.4 103/ul Critically high 1.4-6.5 [facility] Comment on above: Performed By: #### C BC ####[facility] Kcwjwfcdhe3652[address] [place], [place] [address]DrWesley Navarro Neutrophils/100 WBC (Bld) 90.5 % Critically high 43.0-75.0 [facility] Comment on above: Performed By: #### C BC ####[facility] Hrxpkqtbrj7[address] [place], [place] [address]DrWesley Navarro Platelet mean volume (Bld) [Entitic vol] 10.3 fL Normal 9.5-13.5 [facility] Comment on above: Performed By: #### C BC ####[facility] Aqkffhmmid0986[address] [place], [place] [address]DrWesley Navarro PLT 175 103/ul Normal 150-450 [facility] Comment on above: Performed By: #### C BC ####[facility] Ahgrlvuvva3832[address] [place], [place] [address]DrWesley Navarro RBC 4.54 106/ul Critically low 4.70-6.10 [facility] Comment on above: Performed By: #### C BC ####[facility] Qrjivzlolt8868 [place], [place] [address]WdWesley Navarro WBC 19.2 103/ul Critically high 4.0-11.0 [facility] Comment on above: Performed By: #### C BC ####[facility] Jhfwywkqxe1753 [place] [phone] Emelina Navarro Covid-19 PCR (CVDTB)on 04-19 SARS-CoV-2 (COVID-19) RNA RADHA+probe Ql (Unsp spec) Not detected Normal NOT DETECTED [facility] Comment on above: Result Comment: [...] for this test is supported by the [employer] of Health and Human Service's declaration that [...] be used). Performed By: #### C VDTBH ####[facility] Ylmdpujbjm7880 [place], [place] [address]NyWesley Emelina Navarro LIPASEon 04-29-2022 Lipase [Catalytic activity/Vol] 74.0 U/L Normal 73.0-393.0 [facility] Comment on above: Performed By: #### L IPA ####[facility] Iyjqqmrbof3134 [place] [phone] Emelina Navarro PROF 14(COMP METB)on 022 Albumin [Mass/Vol] 2.8 g/dL Critically low 3.4-5.0 [facility] Comment on above: Performed By: #### C MP ####[facility] Wjepwmxlqj3199 [place] [address]Dr. Awildanitza Ramon Albumin/Globulin [Mass ratio] 0.7 {ratio} Normal [facility] Comment on above: Performed By: #### C MP ####[facility] Twakzgqjaf5099 [place] [address]Dr. Emelina Navarro ALP [Catalytic activity/Vol] 70 U/L Normal 46-116 [facility] Comment on above: Performed By: #### C MP ####[facility] Rpytezjsha[address] [place] [address]Dr. Emelina Navarro ALT [Catalytic activity/Vol] 456 U/L Critically high 16-63 [facility] Comment on above: Performed By: #### C MP ####[facility] Frjgxeaajp101[address] [place] [address]Dr. Emelina Navarro Anion gap [Moles/Vol] 14.7 mmol/L Normal Th [facility] Comment on above: Performed By: #### C MP ####[facility] Zgytuqrner[address] [place], [place] [address]Dr. Emelina Navarro AST [Catalytic activity/Vol] 388 U/L Critically high 15-37 [facility] Comment on above: Performed By: #### C MP ####[facility] Saxozlcszs1862[address] [place], [place] [address]Dr. Emelina Navarro Bilirubin [Mass/Vol] 1.2 mg/dL Critically high 0.2-1.0 [facility] Comment on above: Performed By: #### C MP ####[facility] Gdtcepgggx9848[address] [place], [place] [address]Dr. Emelina Navarro Calcium [Mass/Vol] 7.8 mg/dL Critically low 8.5-10.1 Th [facility] Comment on above: Performed By: #### C MP ####[facility] Iqeeqljtso2263 [place] [phone]. Emelina Navarro Chloride [Moles/Vol] 103 mmol/L Normal 98-107 [facility] Comment on above: Performed By: #### C MP ####[facility] Qlwlvysqdk3260 [place] [phone]. Emelina Navarro CO2 [Moles/Vol] 20.8 mmol/L Critically low 21.0-32.0 [facility] Comment on above: Performed By: #### C MP ####[facility] Qvfzyhxmed0581 [place] [phone]. Emelina Navarro Creatinine [Mass/Vol] 1.79 mg/dL Critically high 0.70-1.30 [facility] Comment on above: Performed By: #### C MP ####[facility] Pcrhomjwcg3902 [place] [phone]. Emelina Navarro EGFR-AF [place] 46 mL/min/1.73m2 Critically low >=60 [facility] Comment on above: Performed By: #### C MP ####[facility] Osazevtjuh299[address] [place] [address]Dr. Emelina Navarro EGFR-NON AF [place] 38 mL/min/1.73m2 Critically low >=60 [facility] Comment on above: Performed By: #### C MP ####[facility] Jcuzmoduug1414 [place] [address]Dr. Emelina Navarro Globulin (S) [Mass/Vol] 3.9 g/dL Normal [facility] Comment on above: Performed By: #### C MP ####[facility] Saiykpkegt9428 [place] [phone]. Emelina Ramon Glucose [Mass/Vol] 313 mg/dL Critically high 74-106 [facility] Comment on above: Performed By: #### C MP ####[facility] Rxzlkeddfy9653 [place] [phone]. Emelina Ramon Potassium [Moles/Vol] 3.5 mmol/L Normal 3.5-5.1 [facility] Comment on above: Performed By: #### C MP ####[facility] Dpubcfudif7006 [place] [phone]. Emelina Ramon Protein [Mass/Vol] 6.7 g/dL Normal 6.4-8.2 The [facility] Comment on above: Performed By: #### C MP ####[facility] Ytyjjsmagn902[address] [place], [place] [address]Dr. Emelina Navarro Sodium [Moles/Vol] 135 mmol/L Critically low 136-145 [facility] Comment on above: Performed By: #### C MP ####[facility] Rcgouspram385[address] [place], [place] [address]Dr. Emelina Navarro Urea nitrogen [Mass/Vol] 41.0 mg/dL Critically high 7.0-18.0 [facility] Comment on above: Performed By: #### C MP ####[facility] Uwgvoxtrpz1594[address] [place], [place] [address]Dr. Emelina Navarro Urea nitrogen/Creatinine [Mass ratio] 22.9 mg/mg Normal [facility] Comment on above: Performed By: #### C MP ####[facility] Bcmnedkbfp3653[address] [place], [place] [address]Dr. Emelina Navarro US SINGLE QUAD RT UPPERon US SINGLE QUAD RT UPPER Normal [facility] BLOOD GASES BTYon 04-28-2022 02 MODE NASAL CANNULA Normal The [facility] Comment on above: Result Comment: rese rvoir cannula Performed By: #### A BG ####[facility] Zqopkflckq[address] [place], [place] [address]Dr. Emelina Navarro ALLENS TEST Positive Normal [facility] Comment on above: Performed By: #### A BG ####[facility] Clgdterfrw9962[address] [place], [place] [address]Dr. Emelina Navarro Base excess Calc (Bld) [Moles/Vol] -6.6000 mmol/L Critically low -2.0-2.0 [facility] Comment on above: Performed By: #### A BG ####[facility] Bvgorpgnir427299 [address] [place], [place] [address]Dr. Emelina Navarro BIPAP PRESSURE Normal The [facility] Comment on above: Performed By: #### A BG ####[facility] Xbuabziwnf392[address] [place], [place] [address]Dr. Emelina Navarro CO2 [Moles/Vol] 34.0 mmol/L Critically high 23.0-28.0 [facility] Comment on above: Performed By: #### A BG ####[facility] Rwvwlnzjhl3892 [place] [address]Dr. Emelina Navarro CPAP Normal [facility] Comment on above: Performed By: #### A BG ####[facility] Solprggyiw8557 [place] [address]Dr. Emelina Navarro FIO2 Normal [facility] Comment on above: Performed By: #### A BG ####[facility] Rtmtkhonby4876 [place] [address]Dr. Emelina Navarro HCO3 (Bld) [Moles/Vol] 20.5 mmol/L Critically low 22.0-26.0 [facility] Comment on above: Performed By: #### A BG ####[facility] Vdeqvkymjn525[address] [place], [place] [address]Dr. Emelina Navarro LPM 5 Normal [facility] Comment on above: Performed By: #### A BG ####[facility] Axqmsyfpee875[address] [place], [place] [address]Dr. Emelina Navarro MINUTE VOLUME Normal The [facility] Comment on above: Performed By: #### A BG ####[facility] Hkgkrwpdby4296[address] [place], [place] [address]Dr. Emelina Navarro Oxygen (Bld) [Partial pressure] 62.0 mm[Hg] Critically low 80.0-100.0 [facility] Comment on above: Performed By: #### A BG ####[facility] Klwlkgtncd640199 [address] [place], [place] [address]Dr. Emelina Navarro Oxygen saturation in Blood 92.6 % Critically low 95.0-100.0 [facility] Comment on above: Performed By: #### A BG ####[facility] Ebspkdmwmy215399 [address] [place], [place] [address]Dr. Emelina Navarro PCO2 25.7 mmHg Critically low 35.0-45.0 The [facility] Comment on above: Performed By: #### A BG ####[facility] Vetdnhgadl5712 [place] [address]Dr. Emelina Navarro PEEP [facility] Comment on above: Performed By: #### A BG ####[facility] Mewmpdcxoc7388 [place] [address]Dr. Emelina Navarro pH (Bld) 7.443 [pH] Normal 7.350-7.45 0 [facility] Comment on above: Performed By: #### A BG ####[facility] Mabzfsqnfc96[address] [place], [place] [address]Dr. Emelina Navarro PIP [facility] Comment on above: Performed By: #### A BG ####[facility] Lxpdhigbop805299 [address] [place], [place] [address]Dr. Emelina Navarro PS [facility] Comment on above: Performed By: #### A BG ####[facility] Iqewadgdab1598[address] [place], [place] [address]Dr. Emelina Navarro PUNCTURE SITE LR [facility] Comment on above: Performed By: #### A BG ####[facility] Ogsmuvdzfl0690[address] [place], [place] [address]Dr. Emelina Navarro RATE [facility] Comment on above: Performed By: #### A BG ####[facility] Jkptftdnqi915[address] [place], [place] [address]Dr. Emelina Navarro VENT MODE [facility] Comment on above: Performed By: #### A BG ####[facility] Forlqmfimn7293[address] [place], [place] [address]Dr. Emelina Navarro [place] [facility] Comment on above: Performed By: #### A BG ####[facility] Kkcwhyqvvc1394[address] [place], [place] [address]Dr. Emelina Navarro BNPon 04-28-2022 Natriuretic peptide B (Bld) [Mass/Vol] 72971.0 pg/mL Critically high <=900.0 [facility] Comment on above: Performed By: #### C MP, BNP, CMADM ####[facility] Uczznyxczb6892 [place] [address]Dr. Emelina Navarro CARDIAC IMTIAZ ADMITon 06-10-2 022 CK [Catalytic activity/Vol] 86 U/L Normal 39-308 [facility] Comment on above: Performed By: #### C MP, BNP, CMADM ####[facility] Gqgplhueeg2721 [place] [address]Dr. Emelina Navarro CK.MB [Mass/Vol] 1.41 ng/mL Normal <=3.60 The [facility] Comment on above: Performed By: #### C MP, BNP, CMADM ####[facility] Ebkrpxktnw6114 [place] [address]Dr. Emelina Navarro HSTROP 63.7 pg/mL Normal 4.0-76.1 [facility] Comment on above: Result Comment: CUT- OFF POINTS HAVE BEEN ESTABLISHED BASED ON THE FOURTH UNIVERSAL DEFINITIONS OF MYOCARDIALINFARCTION. THE UPPER REFERENCE LIMIT (URL) OF TROPONIN, DEFINED THE 99TH PERCENTILE OFcTnI DISTRIBUTION IN A REFERENCE POPULATION, HAS BEEN CONFIRMED THE DECISION THRESHOLDFOR IA DIAGNOSIS. Performed By: #### C MP, BNP, CMADM ####[facility] Zosljgsvya8939 [place] [address]Dr. Emelina Ramon URBANO 276 ng/mL Critically high 16-96 The [facility] Comment on above: Performed By: #### C MP, BNP, CMADM ####[facility] Bgggxxicki7567[address] [place], [place] [address]Dr. Emelina Ramon CBC AUTO DIFFon 04-28-2022 BASO # 0.0 103/ul Normal 0.0-0.1 [facility] Comment on above: Performed By: #### C BC ####[facility] Qnjxsnkkft8042 [place] [address]Dr. Awildanitza Navarro Basophils/100 WBC (Bld) 0.2 % Normal 0.2-2.0 [facility] Comment on above: Performed By: #### C BC ####[facility] Gyggzenqrx4107[address] [place], [place] [address]Dr. Emelina Navarro EO # 0.0 103/ul Normal 0.0-0.7 [facility] Comment on above: Performed By: #### C BC ####[facility] Mjyocddies[address] [place], [place] [id number]. Emelina Navarro Eosinophils/100 WBC (Bld) 0.1 % Critically low 0.9-7.0 [facility] Comment on above: Performed By: #### C BC ####[facility] Euwkoilagf8665 [place] [address]Dr. Emelina Navarro Erythrocyte distribution width (RBC) [Ratio] 16.5 % Critically high 11.0-15.0 [facility] Comment on above: Performed By: #### C BC ####[facility] Lundxsuaix708[address] [place], [place] [address]Dr. Emelina Navarro Hematocrit (Bld) [Volume fraction] 45.2 % Normal 42.0-54.0 [facility] Comment on above: Performed By: #### C BC ####[facility] Rimiosczlv715199 [address] [place], [place] [address]Dr. Emelina Navarro Hemoglobin (Bld) [Mass/Vol] 14.8 g/dL Normal 14.0-18.0 [facility] Comment on above: Performed By: #### C BC ####[facility] Dfusgcqisv8238[address] [place], [place] [address]Dr. Emelina Navarro IG # 0.14 10e3/ul Critically high 0.00-0.03 The [facility] Comment on above: Performed By: #### C BC ####[facility] Zbiwtcqpza1962[address] [place], [place] [address]Dr. Emelina Navarro IG % 0.9 % Critically high 0.0-0.5 The [facility] Comment on above: Performed By: #### C BC ####[facility] Dwuuuusydm9013[address] [place], [place] [address]Dr. Emelina Navarro LYMPH # 0.8 103/ul Critically low 1.2-3.8 The [facility] Comment on above: Performed By: #### C BC ####[facility] Eeisdedikq1817[address] [place], [place] [address]Dr. Emelina Navarro Lymphocytes/100 WBC (Bld) 5.1 % Critically low 20.5-60.0 [facility] Comment on above: Performed By: #### C BC ####[facility] Vugeegihgl2059 [place] [phone]. Emelina Navarro MANUAL DIFF REQ NO Normal The [facility] Comment on above: Performed By: #### C BC ####[facility] Qxkyifefco8960 [place] [phone]. Emelina Navarro MCH (RBC) [Entitic mass] 29.3 pg Normal 25.9-34.0 [facility] Comment on above: Performed By: #### C BC ####[facility] Kknylpbjeu2315 [place] [phone]. Emelina Navarro MCHC (RBC) [Mass/Vol] 32.7 g/dL Normal 29.9-35.2 [facility] Comment on above: Performed By: #### C BC ####[facility] Thtifblykz3350 [place] [address]Dr. Emelina Ramon MCV (RBC) [Entitic vol] 89.5 fL Normal 80.0-94.0 [facility] Comment on above: Performed By: #### C BC ####[facility] Txytzhmvpt8754 [place] [phone]. Emelina Ramon MONO # 1.1 103/ul Critically high 0.3-0.8 The [facility] Comment on above: Performed By: #### C BC ####[facility] Tabmavxnhy9072 [place] [address]Dr. Awildanitza Navarro Monocytes/100 WBC (Bld) 7.0 % Normal 1.7-12.0 [facility] Comment on above: Performed By: #### C BC ####[facility] Jdxavmqfeh0654 [place] [phone]. Awildanitza Ramon NEUT # 13.3 103/ul Critically high 1.4-6.5 The [facility] Comment on above: Performed By: #### C BC ####[facility] Wszpluccdn1619 [place] [phone]. Emelina Navarro Neutrophils/100 WBC (Bld) 86.7 % Critically high 43.0-75.0 [facility] Comment on above: Performed By: #### C BC ####[facility] Felesarvis2191 [place], [place] [address]Se. Emelina Navarro Platelet mean volume (Bld) [Entitic vol] 10.7 fL Normal 9.5-13.5 [facility] Comment on above: Performed By: #### C BC ####[facility] Kohsgtpptb4768 [place], [place] [address]Oh. Emelina Navarro PLT 200 103/ul Normal 150-450 [facility] Comment on above: Performed By: #### C BC ####[facility] Pmrrqdfget5926 [place], [place] [address]Rw. Emelina Navarro RBC 5.05 106/ul Normal 4.70-6.10 [facility] Comment on above: Performed By: #### C BC ####[facility] Oitrlfksxo1122 [place] [phone]. Emelina Navarro WBC 15.4 103/ul Critically high 4.0-11.0 [facility] Comment on above: Performed By: #### C BC ####[facility] Stsvpapfuf0039 [place] [phone]. Emelina Navarro CULTURE BLOODon 04-28-2022 Microscopic examination of blood, culture Culture Observations: NO GROWTH AT 5 DAYS. Normal [facility] Comment on above: Performed By: #### B LDCX2 ####[facility] Hmizbhctfj9399 [place] [phone]. Emelina Navarro Microscopic examination of blood, culture Culture Observations: NO GROWTH AT 5 DAYS. Normal [facility] Comment on above: Performed By: #### B LDCX1 ####[facility] Zklwaruofp9502 [place] [phone]. Emelina Navarro [facility] SARS-CoV-2 (COVID-19) RNA RADHA+probe Ql (Unsp spec) Not detected Normal NOT DETECTED [facility] Comment on above: Result Comment: [...] for this test is supported by the [employer] of Health and Human Service's declaration that [...] be used). Performed By: #### C VDTBH ####[facility] Nrnfbmduuc05[address] [place], [place] [address]Dr. Emelina Navarro DIGOXINon 04-28-2022 DIG 0.8 ng/mL Critically low 0.9-2.0 [facility] Comment on above: Performed By: #### D IG ####[facility] Kjnftopojx8432[address] [place], [place] [address]Dr. Emelina Navarro ER URINE PROFILEon 2 Bilirubin Ql (U) Negative Normal NEGATIVE [facility] Comment on above: Performed By: #### PATRIZIA BOLAND ####[facility] Xrauxadtfm2067[address] [place], [place] [address]Dr. Emelina Navarro Clarity (U) CLEAR Normal CLEAR [facility] Comment on above: Performed By: #### PATRIZIA BOLAND ####[facility] Mljksieuwd7036[address] [place], [place] [address]Dr. Emelina Navarro Color (U) YELLOW Normal YELLOW [facility] Comment on above: Performed By: #### LINDSAY BOLANDRO ####[facility] Izxqksngku653[address] [place], [place] [address]Dr. Emelina Navarro ERUAHD A micrscopic examina tion will be performed if indicated. Normal [facility] Comment on above: Performed By: #### LINDSAY BOLANDRO ####[facility] Rkotadqyvz394[address] [place], [place] [address]Dr. Emelina Navarro Glucose Ql (U) 500 mg/dl Abnormal NEGATIVE The [facility] Comment on above: Performed By: #### Hitesh POLK UMICRO ####[facility] Twhqfrlmqh3996 [place] [address]Dr. Emelina Navarro Hemoglobin Ql (U) MODERATE Abnormal NEGATIVE [facility] Comment on above: Performed By: #### Hitesh POLK UMICRO ####[facility] Noudxcgaap9239 [place] [address]Dr. Emelina Navarro Ketones Ql (U) Negative Normal NEGATIVE [facility] Comment on above: Performed By: #### Hitesh POLK UMICRO ####[facility] Qgfaewbfwo1214[address] [place], [place] [address]Dr. Emelina Navarro LEUKOCYTES Negative Normal NEGATIVE [facility] Comment on above: Performed By: #### Hitesh POLK UMICRO ####[facility] Zptgujfynp3696[address] [place], [place] [address]Dr. Emelina Navarro Nitrite Ql (U) Negative Normal NEGATIVE [facility] Comment on above: Performed By: #### Hitesh POLK UMICRO ####[facility] Jfuuhnvcjh889299 [address] [place], [place] [address]Dr. Emelina Navarro pH (U) 5.0 [pH] Normal 5-9 [facility] Comment on above: Performed By: #### Hitesh POLK UMICRO ####[facility] Zptqaqfbxd354899 [address] [place], [place] [address]Dr. Emelina Navarro Protein (U) [Mass/Vol] 100 mg/dL Abnormal NEGATIVE/ TRACE [facility] Comment on above: Performed By: #### Hitesh POLK UMICRO ####[facility] Gafxsnhbec8374[address] [place], [place] [address]Dr. Emelina Navarro SPEC GRAVITY 1.025 Normal 1.005-<=1. 025 [facility] Comment on above: Performed By: #### Hitesh POLK UMICRO ####[facility] Qxddugwjer8016[address] [place], [place] [address]Dr. Emelina Navarro UR MICRO IND INDICATED Normal [facility] Comment on above: Performed By: #### PATRIZIA BOLAND ####[facility] Rtozutqsgr1516 [place] [address]Dr. Emelina Navarro Urobilinogen Qn (U) 0.2 {Ashley'U}/dL Normal 0.2 - 1. 0 [facility] Comment on above: Performed By: #### PATRIZIA BOLAND ####[facility] Rqebskssal3648 [place] [address]Dr. Emelina Navarro LACTATE/LACTIC ACIDon 04-28- 2021 Lactate [Moles/Vol] 5.1 mmol/L Critically high 0.4-1.9 [facility] Comment on above: Performed By: #### L ACT ####[facility] Eiidoqnthp7865[address] [place], [place] [address]Dr. Emelina Navarro Lactate [Moles/Vol] 4.8 mmol/L Critically high 0.4-1.9 [facility] Comment on above: Performed By: #### L ACT ####[facility] Ljopvmrwmc2473[address] [place], [place] [address]Dr. Emelina Navarro Lactate [Moles/Vol] 5.4 mmol/L Critically high 0.4-1.9 [facility] Comment on above: Performed By: #### L ACT ####[facility] Zbsptfpxmq828[address] [place], [place] [address]Dr. Emelina Navarro POINT OF CARE GLUCOSEon 04-19-2021 Glucose [Mass/Vol] 426 mg/dL Critically high 74-106 [facility] Comment on above: Performed By: #### P OCGLUC ####[facility] Hftcesouoi696[address] [place], [place] [address]Dr. Emelina Navarro Glucose [Mass/Vol] 476 mg/dL Critically high 74-106 [facility] Comment on above: Performed By: #### P OCGLUC ####[facility] Cxjprorgkd285[address] [place], [place] [address]Dr. Emelina Navarro Glucose [Mass/Vol] 347 mg/dL Critically high 74-106 [facility] Comment on above: Performed By: #### P OCGLUC ####[facility] Qydllmcmle3333 [place] [address]Dr. Emelina Navarro PROF 14(COMP METB)on 022 Albumin [Mass/Vol] 3.4 g/dL Normal 3.4-5.0 [facility] Comment on above: Performed By: #### C MP, BNP, CMADM ####[facility] Icqcsumxie2099 [place] [address]Dr. Emelina Navarro Albumin/Globulin [Mass ratio] 0.8 {ratio} Normal [facility] Comment on above: Performed By: #### C MP, BNP, CMADM ####[facility] Tpvbjtwitl3913 [place] [address]Dr. Emelina Navarro ALP [Catalytic activity/Vol] 85 U/L Normal 46-116 [facility] Comment on above: Performed By: #### C MP, BNP, CMADM ####[facility] Usaexlcdes3205 [place] [address]Dr. Emelina Navarro ALT [Catalytic activity/Vol] 246 U/L Critically high 16-63 [facility] Comment on above: Performed By: #### C MP, BNP, CMADM ####[facility] Yhcbnnsfrw6814 [place] [address]Dr. Emelina Navarro Anion gap [Moles/Vol] 20.7 mmol/L Normal [facility] Comment on above: Performed By: #### C MP, BNP, CMADM ####[facility] Prwidftpje7992 [place] [address]Dr. Emelina Navarro AST [Catalytic activity/Vol] 299 U/L Critically high 15-37 [facility] Comment on above: Performed By: #### C MP, BNP, CMADM ####[facility] Bqopuutxtn3565 [place] [address]Dr. Emelina Navarro Bilirubin [Mass/Vol] 2.7 mg/dL Critically high 0.2-1.0 [facility] Comment on above: Performed By: #### C MP, BNP, CMADM ####[facility] Fhjbzgdaam8988 [place] [address]Dr. Emelina Navarro Calcium [Mass/Vol] 8.5 mg/dL Normal 8.5-10.1 [facility] Comment on above: Performed By: #### C MP, BNP, CMADM ####[facility] Jjpzpopnjy9920 [place] [address]Dr. Emelina Navarro Chloride [Moles/Vol] 96 mmol/L Critically low 98-107 [facility] Comment on above: Performed By: #### C MP, BNP, CMADM ####[facility] Dvypawgnhb7476 [place] [address]Dr. Emelina Navarro CO2 [Moles/Vol] 19.3 mmol/L Critically low 21.0-32.0 [facility] Comment on above: Performed By: #### C MP, BNP, CMADM ####[facility] Qwptbvfxrx0554[address] [place], [place] [address]Dr. Emelina Navarro Creatinine [Mass/Vol] 2.46 mg/dL Critically high 0.70-1.30 [facility] Comment on above: Performed By: #### C MP, BNP, CMADM ####[facility] Imkxpmdksf6[address] [place], [place] [address]Dr. Emelina Navarro EGFR-AF [place] 32 mL/min/1.73m2 Critically low >=60 [facility] Comment on above: Performed By: #### C MP, BNP, CMADM ####[facility] Zigvvsocoa650[address] [place], [place] [address]Dr. Emelina Navarro EGFR-NON AF [place] 26 mL/min/1.73m2 Critically low >=60 [facility] Comment on above: Performed By: #### C MP, BNP, CMADM ####[facility] Pupjtiidqp9932 [place] [address]Dr. Emelina Navarro Globulin (S) [Mass/Vol] 4.4 g/dL Normal [facility] Comment on above: Performed By: #### C MP, BNP, CMADM ####[facility] Mndmuoavss3325 [place] [address]Dr. Emelina Navarro Glucose [Mass/Vol] 359 mg/dL Critically high 74-106 [facility] Comment on above: Performed By: #### C MP, BNP, CMADM ####[facility] Djvodyegax2550 [place] [address]Dr. Emelina Navarro Potassium [Moles/Vol] 7.0 mmol/L Critically high 3.5-5.1 [facility] Comment on above: Performed By: #### C MP, BNP, CMADM ####[facility] Vgeiipovcm9186 [place] [address]Dr. Emelina Navarro Protein [Mass/Vol] 7.8 g/dL Normal 6.4-8.2 [facility] Comment on above: Performed By: #### C MP, BNP, CMADM ####[facility] Gewdtuglov29[address] [place], [place] [address]Dr. Emelina Ramon Sodium [Moles/Vol] 129 mmol/L Critically low 136-145 [facility] Comment on above: Performed By: #### C MP, BNP, CMADM ####[facility] Rciydvroey25[address] [place], [place] [address]Dr. Emelina Navarro Urea nitrogen [Mass/Vol] 37.0 mg/dL Critically high 7.0-18.0 [facility] Comment on above: Performed By: #### C MP, BNP, CMADM ####[facility] Ydbkufxvlg5[address] [place], [place] [address]Dr. Emelina Ramon Urea nitrogen/Creatinine [Mass ratio] 15.0 mg/mg Normal [facility] Comment on above: Performed By: #### C MP, BNP, CMADM ####[facility] Savkukpucq[address] [place], [place] [address]Dr. Awildanitza Navarro PROF CHEM 8 (BAS METB)on Anion gap [Moles/Vol] 19.2 mmol/L Normal [facility] Comment on above: Performed By: #### B MP ####[facility] W[address]wr[address] [place], [place] [address]Dr. Emelina Navarro Calcium [Mass/Vol] 7.7 mg/dL Critically low 8.5-10.1 [facility] Comment on above: Performed By: #### B MP ####[facility] [address] [place] [address]Dr. Emelina Navarro Chloride [Moles/Vol] 97 mmol/L Critically low 98-107 [facility] Comment on above: Performed By: #### B MP ####[facility] Bveunjlrea[address] [place], [place] [address]Dr. Emelina Navarro CO2 [Moles/Vol] 20.5 mmol/L Critically low 21.0-32.0 [facility] Comment on above: Performed By: #### B MP ####[facility] Sjarnwhqoz[address] [place], [place] [address]Dr. Emelina Navarro Creatinine [Mass/Vol] 2.18 mg/dL Critically high 0.70-1.30 [facility] Comment on above: Performed By: #### B MP ####[facility] Shxkuydmtv[address] [place], [place] [address]Dr. Emelina Navarro EGFR-AF [place] 37 mL/min/1.73m2 Critically low >=60 [facility] Comment on above: Performed By: #### B MP ####[facility] Tkmbrubjaf[address] [place], [place] [address]Dr. Emelina Navarro EGFR-NON AF [place] 30 mL/min/1.73m2 Critically low >=60 [facility] Comment on above: Performed By: #### B MP ####[facility] Xmdybgfonk[address] [place], [place] [address]Dr. Emelina Navarro Glucose [Mass/Vol] 434 mg/dL Critically high 74-106 [facility] Comment on above: Performed By: #### B MP ####[facility] Thjenzdlkj[address] [place], [place] [address]Dr. Emelina Navarro Potassium [Moles/Vol] 4.7 mmol/L Normal 3.5-5.1 [facility] Comment on above: Performed By: #### B MP ####[facility] Blxtunreog9440[address] [place], [place] [address]Dr. Emelina Navarro Sodium [Moles/Vol] 132 mmol/L Critically low 136-145 [facility] Comment on above: Performed By: #### B MP ####[facility] [address]owgfjsz[address] [place] [address]Dr. Emelina Navarro Urea nitrogen [Mass/Vol] 37.0 mg/dL Critically high 7.0-18.0 [facility] Comment on above: Performed By: #### B MP ####[facility] Pjtkrgwmbq[address] [place] [address]Dr. Emelina Navarro Urea nitrogen/Creatinine [Mass ratio] 17.0 mg/mg Normal [facility] Comment on above: Performed By: #### B MP ####[facility] Ikobqsfpry[address] [place], [place] [address]Dr. Emelina Navarro PROTIMEon 04-28-2022 INR Coag (PPP) [Relative time] 1.91 {INR} Normal [facility] Comment on above: Performed By: #### P TT, PT ####[facility] Ujxugzow[address] [place], [place] [address]Dr. Emelina Navarro INR GUIDELINES SEE BELOW Normal [facility] Comment on above: Result Comment: WENDY RED INR: 2.0 - 3.0 CONDITIONS NOT LISTED BELOW 2.5 - 3.5 FOR PROSTHETIC HEART VALVE REPLACEMENT 2.5 - 3.5 RECURRENT THROMBOSIS Performed By: #### P TT, PT ####[facility] Chrbrgazex[address]25[address] [place], [place] [address]Dr. Emelina Navarro PT Coag (PPP) [Time] 19.8 s Critically high 9.0-11.6 [facility] Comment on above: Performed By: #### P TT, PT ####[facility] Eizbbwbnwi[address] [place], [place] [address]Dr. Emelina Navarro PTTon 04-28-2022 aPTT Coag (Bld) [Time] 33.0 s Normal 22.3-36.2 [facility] Comment on above: Performed By: #### P TT, PT ####[facility] Mdbybeaqub[address] [place], [place] [address]Dr. Emelina Navarro RESPIRATORY PANEL PLUSon Adenovirus Not detected Normal NOT DETECTED [facility] Comment on above: Performed By: #### R SPLUS ####[facility] Dampczcskt[address] [place], [place] [address]Dr. Emelina Navarro B. Parapertusis Not detected Normal NOT DETECTED [facility] Comment on above: Performed By: #### R SPLUS ####[facility] Lfijsopvts[address] [place], [place] [address]Dr. Emelina Navarro B. Pertussis Not detected Normal NOT DETECTED [facility] Comment on above: Performed By: #### R SPLUS ####[facility] Ycvweihqjc40[address] [place], [place] [address]Dr. Emelina Navarro Chlamydia Pneumoniae Not detected Normal NOT DETECTED [facility] Comment on above: Performed By: #### R SPLUS ####[facility] Ibcttvapao9994[address] [place], [place] [address]Dr. Emelina Navarro Coronavirus 229E Not detected Normal NOT DETECTED [facility] Comment on above: Performed By: #### R SPLUS ####[facility] Lvgdczktzb7[address] [place], [place] [address]Dr. Emelina Navarro Coronavirus HKU1 Not detected Normal NOT DETECTED [facility] Comment on above: Performed By: #### R SPLUS ####[facility] Gnwuojudxm[address] [place], [place] [address]Dr. Emelina Navarro Coronavirus NL63 Not detected Normal NOT DETECTED [facility] Comment on above: Performed By: #### R SPLUS ####[facility] Tflszybzeq[address] [place], [place] [address]Dr. Yinitza Navaror Coronavirus OC43 Not detected Normal NOT DETECTED [facility] Comment on above: Performed By: #### R SPLUS ####[facility] Dniqeqwlqz[address] [place], [place] [address]Dr. Yilan Navarro Influenza A H1 2009 Not detected Normal NOT DETECTED [facility] Comment on above: Performed By: #### R SPLUS ####[facility] Jsyrtdelaa[address] [place], [place] [address]Dr. Yilan Navarro Influenza A H3 Not detected Normal NOT DETECTED [facility] Comment on above: Performed By: #### R SPLUS ####[facility] Lzgspxamcl90[address] [place], [place] [address]Dr. Yilan Navarro Influenza B Not detected Normal NOT DETECTED [facility] Comment on above: Performed By: #### R SPLUS ####[facility] [address] [place] [address]Dr. Emelina Navarro Metapneumovirus Not detected Normal NOT DETECTED [facility] Comment on above: Performed By: #### R SPLUS ####[facility] Fxoeqemcwn[address] [place] [address]Dr. Emelina Navarro Mycoplas. Pneumoniae Not detected Normal NOT DETECTED [facility] Comment on above: Performed By: #### R SPLUS ####[facility] O[address]oxqznbmz[address] [place], [place] [address]Dr. Emelina Navarro Parainfluenza 1 Not detected Normal NOT DETECTED [facility] Comment on above: Performed By: #### R SPLUS ####[facility] Oosflvogcf[address]254[address] [place], [place] [address]Dr. Emelina Navarro Parainfluenza 2 Not detected Normal NOT DETECTED [facility] Comment on above: Performed By: #### R SPLUS ####[facility] Oamjkfvzye[address] [place], [place] [address]Dr. Emelina Navarro Parainfluenza 3 Detected Abnormal NOT DETECTED [facility] Comment on above: Performed By: #### R SPLUS ####[facility] Yhcewkfvgg[address] [place], [place] [address]Dr. Emelina Navarro Parainfluenza 4 Not detected Normal NOT DETECTED [facility] Comment on above: Performed By: #### R SPLUS ####[facility] Jzaxuadazs[address] [place], [place] [address]Dr. Emelina Navarro Rhino/Enterovirus Not detected Normal NOT DETECTED [facility] Comment on above: Performed By: #### R SPLUS ####[facility] Piafylqgyz[address] [place], [place] [address]Dr. Emelina Navarro RP2 Header 1 RESPIRATORY PANEL: VIRUSES Normal [facility] Comment on above: Performed By: #### R SPLUS ####[facility] Iiatqsguax288[address] [place], [place] [address]Dr. Emelina Navarro RP2 Header 2 RESPIRATORY PANEL: BACTERIA Normal [facility] Comment on above: Performed By: #### R SPLUS ####[facility] [address] [place] [address]Dr. Emelina Navarro RSV Not detected Normal NOT DETECTED [facility] Comment on above: Performed By: #### R SPLUS ####[facility] [address]nel[address]prp[address] [place] [address]Dr. Emelina Navarro SARS-CoV-2 (COVID-19) RNA RADHA+probe Ql (Unsp spec) Not detected Normal NOT DETECTED [facility] Comment on above: Performed By: #### R SPLUS ####[facility] Omsfpkrgew[address] [place], [place] [address]Dr. Emelina Navarro URINE MICROSCOPIC ONLYon BACTERIA NONE SEEN Normal NONE SEEN [facility] Comment on above: Performed By: #### Hitesh POLK UMICRO ####[facility] Kpekop[address]jz[address] [place], [place] [address]Dr. Emelina Navarro Bacteria identified Cx Nom (U) NOT INDICATED Normal [facility] Comment on above: Performed By: #### Hitesh POLK UMICRO ####[facility] Ekxrcrr[address]zl[address] [place], [place] [address]Dr. Emelina Navarro CAST SEEN Abnormal NONE SEEN [facility] Comment on above: Performed By: #### Hitesh POLK UMICRO ####[facility] G[address]emdkhc[address] [place], [place] [address]Dr. Emelina Navarro Crystals LM Nom (Urine sed) NONE SEEN Normal NONE SEEN [facility] Comment on above: Performed By: #### Hitesh POLK UMICRO ####[facility] Tpfamugzfg[address] [place], [place] [address]Dr. Emelina Navarro Epithelial cells LM Ql (Urine sed) FEW Abnormal NONE SEEN /RARE [facility] Comment on above: Performed By: #### Hitesh POLK UMICRO ####[facility] St[address]bcqupmw[address] [place], [place] [address]Dr. Emelina Navarro HYALINE CAST MANY Normal [facility] Comment on above: Performed By: #### Hitesh POLK UMICRO ####[facility] [address] [place], [place] [address]Yg. Awildalan Navarro MUCOUS NONE SEEN Normal NONE SEEN [facility] Comment on above: Performed By: #### PATRIZIA BOLAND ####[facility] F[address] [place], [place] [address]Sa. Emelina Navarro RBC 0-2 Normal 0-2 [facility] Comment on above: Performed By: #### PATRIZIA BOLAND ####[facility] [address]rahhsfniv[address] [place], [place] [address]Uu. Emelina Navarro WBC 0-2 Abnormal NONE SEEN [facility] Comment on above: Performed By: #### PATRIZIA BOLAND ####[facility] [address] [place] [id number]. Emelina Navarro XR CHEST 1 Von 04-28-2022 XR CHEST 1 V Normal [facility] Albumin [Mass/volume] in Ser um or PlasmaOrdered By: Ethan Cummings on 04-10-2022 Albumin [Mass/Vol] 3.8 g/dL 2.9-4.4 [facility] IgA [Mass/volume] in Serum o r PlasmaOrdered By: Ethan Cummings on 04-10-2022 IgA [Mass/Vol] 607 mg/dL 61-437 [facility] IgG [Mass/volume] in Serum o r PlasmaOrdered By: Ethan Cummings on 04-10-2022 IgG [Mass/Vol] 1207 mg/dL 603-1613 [facility] IgM [Mass/volume] in Serum o r PlasmaOrdered By: Ethan Cummings on 04-10-2022 IgM [Mass/Vol] 94 mg/dL 20-172 [facility] Comment on above: Performed at: [address] [id number] Director: Alexis Winslow PhD, Phone: [phone] Immunoglobulin light chains. kappa.free [Mass/volume] in SerumOrdered By: Ethan Cummings on 04-10-2022 Immunoglobulin light chains.kappa.free (S) [Mass/Vol] 58.6 mg/L 3.3-19.4 [facility] Immunoglobulin light chains. kappa.free/Immunoglobulin light chains.lambda.free [MassOrdered By: Ethan Cummings on 04-10-2022 Immunoglobulin light chains.kappa.free/Imm unoglobulin light chains.lambda.free (S) [Mass ratio] 1.42 0.26-1.65 [facility] Comment on above: Performed at: [employer] [facility] [address] [id number] Director: Alexis Winslow PhD, Phone: [phone] Immunoglobulin light chains. lambda.free [Mass/volume] in Serum or PlasmaOrdered By: Ethan Cummings on 04-10-2022 Immunoglobulin light chains.lambda.free [Mass/Vol] 41.2 mg/L 5.7-26.3 [facility] Laboratory - Hematology and Cell countsOrdered By: Ethan Cummings on 04-10-2022 Nucleated RBC/100 WBC (Bld) [Ratio] 0.0 % 0-0.5 [facility] No Panel InformationOrdered By: Ethan Cummings on 04-10-2022 BCR/abl See comment [facility] Comment on above: See report. Scanned copy available in EMR. CBC Comment See comment [facility] Comment on above: Slide referred to raquel belcher for review Platelet Estimate Normal Normal [facility] Platelet Morphology Comment Normal Normal [facility] Protein Electrophoresis M-Brenden Not observed g/dL Not Observed [facility] Protein Electrophoresis Note See comment . [facility] Comment on above: Protein electrophore sis scan will follow via computer,mail, or paralegal assistant delivery.Performed at: [employer] [facility] [address] [id number] Director: Alexis Winslow PhD, Phone: [phone] Serum Immunofixation See comment . [facility] Comment on above: No monoclonality det ected. Protein [Mass/volume] in Ser um or PlasmaOrdered By: Ethan Cummings on 04-10-2022 Protein [Mass/Vol] 7.4 g/dL 6.0-8.5 [facility] RBC morphologyOrdered By: Francis Cummings on 04-10-2022 RBC morphology finding Nom (Bld) Normal [facility] Serum globulin measurement ( mass/volume)Ordered By: Ethan Cummings on 04-10-2022 Globulin (S) [Mass/Vol] 3.6 g/dL 2.2-3.9 [facility] Serum or plasma albumin/glob ulin mass ratioOrdered By: Ethan Cummings on 04-10-2022 Albumin/Globulin [Mass ratio] 1.1 {ratio} 0.7-1.7 [facility] Serum or plasma alpha 1 glob ulin measurement by electrophoresis (mass/volume)Ordered By: Ethan Cummings on 04-10-2022 Alpha 1 globulin Elph [Mass/Vol] 0.2 g/dL 0.0-0.4 [facility] Serum or plasma alpha 2 glob ulin measurement by electrophoresis (mass/volume)Ordered By: Ethan Cummings on 04-10-2022 Alpha 2 globulin Elph [Mass/Vol] 0.9 g/dL 0.4-1.0 [facility] Serum or plasma beta globuli n measurement by electrophoresis (mass/volume)Ordered By: Ethan Cummings on 04-10-2022 Beta globulin Elph [Mass/Vol] 1.2 g/dL 0.7-1.3 [facility] Serum or plasma gamma globul in measurement by electrophoresis (mass/volume)Ordered By: Ethan Cummings on 04-10-2022 Gamma globulin Elph [Mass/Vol] 1.3 g/dL 0.4-1.8 [facility] Serum or plasma methylmalona te measurement (moles/volume)Ordered By: Ethan Cummings on 04-10-2022 Methylmalonate [Moles/Vol] 668 nmol/L 0-378 [facility] Comment on above: This test was develo ped and its performance characteristicsdetermined by [employer]. It has not been cleared orapproved by the Food and Drug Administration.Performed at: [address] [id number] Director: Natalia Vergara MD, Phone: [phone] XR foot LT min 3V*on 04-03-2 022 XR foot LT min 3V* [facility] [employer] Other XR foot LT min 3V* [facility] [employer] Other XR foot LT min 3V* [address] [facility] [address] Other XR foot LT min 3V* [place] [address] [employer] Other XR foot LT min 3V* XRay Report [employer] Other XR foot LT min 3V* Signed [employer] Other XR foot LT min 3V* Patient: Adwoa Porter MR#: [id number] [facility] [address] Other XR foot LT min 3V* 7 [employer] Other XR foot LT min 3V* : 1955 Acct:[id number] [employer] Other XR foot LT min 3V* Age/Sex: 66 / M ADM Date: 02/19/22 [employer] Other XR foot LT min 3V* Loc: XDUCLY Room: pe: [facility] [employer] Other XR foot LT min 3V* Attending Dr: Ruthie EUCEDA [employer] Other XR foot LT min 3V* Ordering Provider: KINSEY Jiménez [employer] Other XR foot LT min 3V* Date of Service: 02/19/22 [employer] Other XR foot LT min 3V* [id number]) XR/XR foot LT min 3V*: Left foot pain [employer] Other XR foot LT min 3V* Copies to: KINSEY Mancia [employer] Other XR foot LT min 3V* LEFT FOOT - 3 views [employer] Other XR foot LT min 3V* CLINICAL HISTORY: Le ft foot pain. [employer] Other XR foot LT min 3V* COMPARISON: Left tessie t series 02/09/2020 [employer] Other XR foot LT min 3V* FINDINGS: [employer] Other XR foot LT min 3V* Soft tissue swelling is noted. Since the prior study, as been interval partial amputation of the [employer] Other XR foot LT min 3V* first digit. 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 Questionable [employer] Other XR foot LT min 3V* subluxation/dislocat ion involving the PIP joint of the second digit. No definite plain film [employer] Other XR foot LT min 3V* evidence of osteomyelitis. [employer] Other XR foot LT min 3V* X R/XR foot LT min 3V* [employer] Other XR foot LT min 3V* IMPRESSION: [employer] Other XR foot LT min 3V* QUESTIONABLE SUBLUXATION/DISLOCATION INVOLVING THE PIP JOINT OF THE SECOND DIGIT. SOFT TISSUE [employer] Other XR foot LT min 3V* SWELLING. [employer] Other XR foot LT min 3V* Impression dictated by: Brennan Salgado Jr., DWesleyOWesley02/19/2022 11:52 AM [employer] Other XR foot LT min 3V* Dictation Location: [place] [address] [employer] Other XR foot LT min 3V* Transcribed By: CONSUELO 02/19/22 1152 [employer] Other XR foot LT min 3V* Dictated By: Brennan Salgado Jr, DO 02/19/[address] Other XR foot LT min 3V* Signed By: [employer] Other XR foot LT min 3V* 02/19/22 1152 Located within [facility] [employer] Other Glucose - FINGER STICKon Glucose [Mass/Vol] 166 mg/dL [facility] [employer] Other A1C HEMOGLOBINon 11-16-2021 HbA1c (Bld) [Mass fraction] 10.7 % [facility] [address] Other Glucose - FINGER STICKon Glucose [Mass/Vol] 205 mg/dL [facility] [employer] Other HbA1c (Bld) [Mass fraction]o n 11-16-2021 A1C HEMOGLOBIN [facility] [employer] Other Glucose - FINGER STICKon Glucose [Mass/Vol] 158 mg/dL [facility] [employer] Other BASIC METABOLIC PANELon 05-3 Calcium [Mass/Vol] 9.9 mg/dL Normal 8.6-10.3 [facility] Comment on above: Order Comment: No: D o not add to previous draw Performed By: #### 9 9909, 94652, 99697, 06663 #### [facility] [address] [place] [address], [place] Chloride [Moles/Vol] 93 mmol/L Low 98-107 [facility] Comment on above: Order Comment: No: D o not add to previous draw Performed By: #### 9 9909, 41970, 10672, 29411 #### [facility] [address] [place] [address], [place] CO2 [Moles/Vol] 32 mmol/L High 21-31 [facility] Comment on above: Order Comment: No: D o not add to previous draw Performed By: #### 9 9909, 64184, 79375, 76309 #### [facility] [address] [place] [address], [place] Creatinine [Mass/Vol] 1.89 mg/dL High 0.70-1.30 [facility] Comment on above: Order Comment: No: D o not add to previous draw Performed By: #### 9 9909, 85721, 39267, 59918 #### [facility] [address] [place] [address], [place] eGFR- 43 ml/min/1.73sq m Abnormal >60 [facility] Comment on above: Order Comment: No: D o not add to previous draw Performed By: #### 9 9909, 96747, 92429, 50542 #### [facility] [address] [place] [address], [facility] eGFR- non- 36 ml/min/1.73sq m Abnormal >60 [facility] Comment on above: Order Comment: No: D o not add to previous draw Performed By: #### 9 9909, 93381, 81816, 97569 #### [facility] [address] [place] [address], [place] Glucose [Mass/Vol] 217 mg/dL High 70-100 [facility] Comment on above: Order Comment: No: D o not add to previous draw Performed By: #### 9 9909, 15688, 85919, 42890 #### [facility] [address] [place] [address], [place] Potassium [Moles/Vol] 4.2 mmol/L Normal 3.5-5.1 [facility] Comment on above: Order Comment: No: D o not add to previous draw Performed By: #### 9 9909, 82680, 02090, 20624 #### [facility] [address] [place] [address], [place] Sodium [Moles/Vol] 135 mmol/L Low 136-145 [facility] Comment on above: Order Comment: No: D o not add to previous draw Performed By: #### 9 9909, 84345, 69187, 59406 #### [facility] [address] [place] [address], [facility] Urea nitrogen [Mass/Vol] 53 mg/dL High 7-25 [facility] Comment on above: Order Comment: No: D o not add to previous draw Performed By: #### 9 9909, 20566, 24240, 20611 #### [facility] [address] [place] [address], [facility] POC GLUCOSE LABon 04-17-2021 Glucose [Mass/Vol] 274 mg/dL High 70-100 [facility] Comment on above: Performed By: #### 8 5499 #### [facility] [address] [place] [address], [facility] PROTHROMBIN TIMEon INR Coag (PPP) [Relative time] 1.76 {INR} High 0.91-1.16 [facility] Comment on above: Order Comment: No: D [...] 1995;108:[id number]. Performed By: #### 3 5200 #### [facility] [address] [place] [address], [place] PT Coag (PPP) [Time] 20.6 s High 12.3-14.8 [facility] Comment on above: Order Comment: No: D o not add to previous draw Result Comment: ALL RESULTS MUST BE INTERPRETED WITH RESPECT TO BLOOD DRAWING ARTIFACT OR DILUTION ERROR OF ANTICOAGULANT AT THE TIME OF SAMPLING. Performed By: #### 3 5200 #### [facility] [address] [place] [address], [place] INR Coag (PPP) [Relative time] 1.64 {INR} High 0.91-1.16 [facility] Comment on above: Order Comment: No: D [...] 1995;108:[id number]. Performed By: #### 3 5200 #### [facility] [address] [place] [address], [place] PT Coag (PPP) [Time] 19.5 s High 12.3-14.8 [facility] Comment on above: Order Comment: No: D o not add to previous draw Result Comment: ALL RESULTS MUST BE INTERPRETED WITH RESPECT TO BLOOD DRAWING ARTIFACT OR DILUTION ERROR OF ANTICOAGULANT AT THE TIME OF SAMPLING. Performed By: #### 3 5200 #### [facility] [address] [place] [address], [facility] BASIC METABOLIC PANELon 05-2 Calcium [Mass/Vol] 10.0 mg/dL Normal 8.6-10.3 [facility] Comment on above: Order Comment: No: D o not add to previous draw Performed By: #### 1 69, 02950 #### [facility] [address] [place] [id number], [place] Chloride [Moles/Vol] 92 mmol/L Low 98-107 [facility] Comment on above: Order Comment: No: D o not add to previous draw Performed By: #### 1 69, 47566 #### [facility] [address] [place] [address], [place] CO2 [Moles/Vol] 35 mmol/L High 21-31 [facility] Comment on above: Order Comment: No: D o not add to previous draw Performed By: #### 1 69, 71647 #### [facility] [address] [place] [id number], [place] Creatinine [Mass/Vol] 1.89 mg/dL High 0.70-1.30 [facility] Comment on above: Order Comment: No: D o not add to previous draw Performed By: #### 1 69, 44035 #### [facility] [address] [place] [id number], [place] eGFR- 43 ml/min/1.73sq m Abnormal >60 [facility] Comment on above: Order Comment: No: D o not add to previous draw Performed By: #### 1 69, [id number] #### [facility] [address] eGFR- non- 36 ml/min/1.73sq m Abnormal >60 [facility] Comment on above: Order Comment: No: D o not add to previous draw Performed By: #### 1 69, 93960 #### [facility] [address] [place] [address], [place] Glucose [Mass/Vol] 187 mg/dL High 70-100 [facility] Comment on above: Order Comment: No: D o not add to previous draw Performed By: #### 1 69, 56621 #### [facility] [address] [place] [id number], [facility] Potassium [Moles/Vol] 4.1 mmol/L Normal 3.5-5.1 [facility] Comment on above: Order Comment: No: D o not add to previous draw Performed By: #### 1 69, 42124 #### [facility] [address] [place] [id number], [facility] Sodium [Moles/Vol] 137 mmol/L Normal 136-145 [facility] Comment on above: Order Comment: No: D o not add to previous draw Performed By: #### 1 69, 87575 #### [facility] [address] [place] [id number], [facility] Urea nitrogen [Mass/Vol] 52 mg/dL High 7-25 [facility] Comment on above: Order Comment: No: D o not add to previous draw Performed By: #### 1 69, 90454 #### [facility] [address] [place] [id number], [facility] CBC W/DIFFon 04-16-2021 ABS IMM GRANS 0.0 10*3/uL Normal 0.0-0.2 [facility] Comment on above: Order Comment: No: D o not add to previous draw Performed By: #### 3 5200 #### [facility] [address] [place] [id number], [facility] ABS NEUTROPHILS 5.9 10*3/uL Normal 1.6-7.6 [facility] Comment on above: Order Comment: No: D o not add to previous draw Performed By: #### 3 5200 #### [facility] [address] [place] [address], [facility] Basophils (Bld) [#/Vol] 0.0 10*3/uL Normal 0.0-0.2 [facility] Comment on above: Order Comment: No: D o not add to previous draw Performed By: #### 3 5200 #### [facility] [address] [place] [address], [facility] Basophils/100 WBC (Bld) 0.3 % Normal 0.0-1.0 [facility] Comment on above: Order Comment: No: D o not add to previous draw Performed By: #### 3 5200 #### [facility] [address] [place] [address], [place] Eosinophils (Bld) [#/Vol] 0.4 10*3/uL Normal 0.0-0.5 [facility] Comment on above: Order Comment: No: D o not add to previous draw Performed By: #### 3 5200 #### [facility] [address] [place] [address], [facility] Eosinophils/100 WBC (Bld) 4.3 % Normal 0.0-6.0 [facility] Comment on above: Order Comment: No: D o not add to previous draw Performed By: #### 3 5200 #### [facility] [address] [place] [id number], [place] Erythrocyte distribution width (RBC) [Ratio] 16.1 % High 11.5-15.0 [facility] Comment on above: Order Comment: No: D o not add to previous draw Performed By: #### 3 5200 #### [facility] [address] [place] [address], [place] Hematocrit (Bld) [Volume fraction] 37.0 % Low 39.0-50.0 [facility] Comment on above: Order Comment: No: D o not add to previous draw Performed By: #### 3 5200 #### [facility] [address] [place] [address], [facility] Hemoglobin (Bld) [Mass/Vol] 11.4 g/dL Low 13.0-17.0 [facility] Comment on above: Order Comment: No: D o not add to previous draw Performed By: #### 3 5200 #### [facility] [address] [place] [address], [facility] IMMATURE GRANS 0.3 % Normal 0.0-1.0 [facility] Comment on above: Order Comment: No: D o not add to previous draw Performed By: #### 3 5200 #### [facility] [address] [place] [address], [facility] Lymphocytes (Bld) [#/Vol] 1.8 10*3/uL Normal 1.2-4.0 [facility] Comment on above: Order Comment: No: D o not add to previous draw Performed By: #### 3 5200 #### [facility] [address] [place] [id number], [facility] Lymphocytes/100 WBC (Bld) 20.7 % Normal 20.0-45.0 [facility] Comment on above: Order Comment: No: D o not add to previous draw Performed By: #### 3 5200 #### [facility] [address] [place] [address], [place] MCH (RBC) [Entitic mass] 27.1 pg Normal 27.0-33.0 [facility] Comment on above: Order Comment: No: D o not add to previous draw Performed By: #### 3 5200 #### [facility] [address] [place] [address], [place] MCHC (RBC) [Mass/Vol] 30.8 g/dL Low 32.0-35.0 [facility] Comment on above: Order Comment: No: D o not add to previous draw Performed By: #### 3 5200 #### [facility] [address] [place] [address], [facility] MCV (RBC) [Entitic vol] 88.1 fL Normal 82.0-98.0 [facility] Comment on above: Order Comment: No: D o not add to previous draw Performed By: #### 3 5200 #### [facility] [address] [place] [id number], [facility] Monocytes (Bld) [#/Vol] 0.7 10*3/uL Normal 0.1-1.0 [facility] Comment on above: Order Comment: No: D o not add to previous draw Performed By: #### 3 5200 #### [facility] [address] [facility] [place] [address], [facility] MONOS 7.9 % Normal 5.0-12.0 [facility] Comment on above: Order Comment: No: D o not add to previous draw Performed By: #### 3 5200 #### [facility] [address] [facility] [place] [address], [facility] Neutrophils/100 WBC (Bld) 66.5 % Normal 40.0-72.0 [facility] Comment on above: Order Comment: No: D o not add to previous draw Performed By: #### 3 5200 #### [facility] [address] [facility] [place] [address], [facility] Nucleated RBC/100 WBC (Bld) [Ratio] 0 % Normal 0-0 [facility] Comment on above: Order Comment: No: D o not add to previous draw Performed By: #### 3 5200 #### [facility] [address] [place] [address], [facility] PLAT CNT 189 10*3/uL Normal 150-400 [facility] Comment on above: Order Comment: No: D o not add to previous draw Performed By: #### 3 5200 #### [facility] [address] [place] [address], [facility] RBC (Bld) [#/Vol] 4.20 10*6/uL Normal 4.20-5.70 [facility] Comment on above: Order Comment: No: D o not add to previous draw Performed By: #### 3 5200 #### [facility] [address] [place] [address], [place] WBC (Bld) [#/Vol] 8.82 10*3/uL Normal 4.00-10.60 [facility] Comment on above: Order Comment: No: D o not add to previous draw Performed By: #### 3 5200 #### [facility] [address] [place] [address], [facility] HEMOGLOBIN A1Con 04-16-2021 Glucose [Moles/Vol] 180 mmol/L Normal [facility] Comment on above: Order Comment: Yes: Add to Previous draw if able Performed By: #### 8 5499 #### [facility] [address] [facility] [place] [address], [facility] HbA1c (Bld) [Mass fraction] 7.9 % High 4.0-6.0 [facility] Comment on above: Order Comment: Yes: Add to Previous draw if able Performed By: #### 8 5499 #### [facility] [address] [place] [address], [facility] MAGNESIUM BLOODon 04-16-2021 Magnesium [Mass/Vol] 2.3 mg/dL Normal 1.9-2.7 [facility] Comment on above: Order Comment: No: D o not add to previous draw Performed By: #### 1 0070, 81335 #### [facility] [address] [place] [address], [place] POC GLUCOSE LABon 04-16-2021 Glucose [Mass/Vol] 357 mg/dL High 70-100 [facility] Comment on above: Performed By: #### 8 5499 #### [facility] [address] [facility] [place] [address], [facility] Glucose [Mass/Vol] 149 mg/dL High 70-100 [facility] Comment on above: Performed By: #### 9 9909, 73788, 12230, 86241 #### [facility] [address] [facility] [address], [facility] Glucose [Mass/Vol] 243 mg/dL High 70-100 [facility] Comment on above: Performed By: #### 8 5499 #### [facility] [address] [facility] [place] [address], [facility] Glucose [Mass/Vol] 181 mg/dL High 70-100 [facility] Comment on above: Performed By: #### 9 9909, 10553, 24634, 70185 #### [facility] [address] [place], [place] [id number] [place] [address] PROTHROMBIN TIMEon 1 INR Coag (PPP) [Relative time] 1.63 {INR} High 0.91-1.16 [facility] Comment on above: Order Comment: No: D [...] 1995;108:231S-246S. Performed By: #### 3 5200 #### [facility] [address] [place] [address], [facility] PT Coag (PPP) [Time] 19.4 s High 12.3-14.8 [facility] Comment on above: Order Comment: No: D o not add to previous draw Result Comment: ALL RESULTS MUST BE INTERPRETED WITH RESPECT TO BLOOD DRAWING ARTIFACT OR DILUTION ERROR OF ANTICOAGULANT AT THE TIME OF SAMPLING. Performed By: #### 3 5200 #### [facility] [address] [facility] [place] [address], [facility] INR Coag (PPP) [Relative time] 1.66 {INR} High 0.91-1.16 [facility] Comment on above: Order Comment: No: D [...] RANGE. CHEST 1995;108:231S-246S. Performed By: #### 3 5208 #### [facility] [address] [place] [address], [facility] PT Coag (PPP) [Time] 19.7 s High 12.3-14.8 [facility] Comment on above: Order Comment: No: D o not add to previous draw Result Comment: ALL RESULTS MUST BE INTERPRETED WITH RESPECT TO BLOOD DRAWING ARTIFACT OR DILUTION ERROR OF ANTICOAGULANT AT THE TIME OF SAMPLING. Performed By: #### 3 5200 #### [facility] [address] [place] [address], [facility] BASIC METABOLIC PANELon 05-2 Calcium [Mass/Vol] 9.7 mg/dL Normal 8.6-10.3 [facility] Comment on above: Order Comment: No: D o not add to previous draw Performed By: #### 9 9909, 65280, 03558, 45710 #### [facility] [address] [place] [address], [facility] Chloride [Moles/Vol] 92 mmol/L Low 98-107 [facility] Comment on above: Order Comment: No: D o not add to previous draw Performed By: #### 9 9909, 27333, 21304, 12692 #### [facility] [address] [place] [address], [facility] CO2 [Moles/Vol] 36 mmol/L High 21-31 [facility] Comment on above: Order Comment: No: D o not add to previous draw Performed By: #### 9 9909, 70097, 40291, 18680 #### [facility] [address] [place] [address], [facility] Creatinine [Mass/Vol] 1.86 mg/dL High 0.70-1.30 [facility] Comment on above: Order Comment: No: D o not add to previous draw Performed By: #### 9 9909, 91981, 30412, 11486 #### [facility] [address] [place] [address], [facility] eGFR- 44 ml/min/1.73sq m Abnormal >60 [facility] Comment on above: Order Comment: No: D o not add to previous draw Performed By: #### 9 9909, 17839, 95246, 22669 #### [facility] [address] [place] [address], [facility] eGFR- non- 37 ml/min/1.73sq m Abnormal >60 [facility] Comment on above: Order Comment: No: D o not add to previous draw Performed By: #### 9 9909, 97647, 83537, 75676 #### [facility] [address] [place] [address], [place] Glucose [Mass/Vol] 167 mg/dL High 70-100 [facility] Comment on above: Order Comment: No: D o not add to previous draw Performed By: #### 9 9909, 93021, 34185, 32859 #### [facility] [address] [place] [address], [place] Potassium [Moles/Vol] 4.0 mmol/L Normal 3.5-5.1 [facility] Comment on above: Order Comment: No: D o not add to previous draw Performed By: #### 9 9909, 12556, 18333, 99099 #### [facility] [address] [place] [address], [place] Sodium [Moles/Vol] 138 mmol/L Normal 136-145 [facility] Comment on above: Order Comment: No: D o not add to previous draw Performed By: #### 9 9909, 90115, 01140, 16935 #### [facility] [address] [place] [address], [place] Urea nitrogen [Mass/Vol] 44 mg/dL High 7-25 [facility] Comment on above: Order Comment: No: D o not add to previous draw Performed By: #### 9 9909, 93487, 87506, 52961 #### [facility] [address] [place] [address], [place] CBC W/DIFFon 04-15-2021 ABS IMM GRANS 0.0 10*3/uL Normal 0.0-0.2 [facility] Comment on above: Order Comment: No: D o not add to previous draw Performed By: #### 3 5200 #### [facility] [address] [place] [address], [facility] ABS NEUTROPHILS 6.3 10*3/uL Normal 1.6-7.6 [facility] Comment on above: Order Comment: No: D o not add to previous draw Performed By: #### 3 5200 #### [facility] [address] [place] [address], [facility] Basophils (Bld) [#/Vol] 0.0 10*3/uL Normal 0.0-0.2 [facility] Comment on above: Order Comment: No: D o not add to previous draw Performed By: #### 3 5200 #### [facility] [address] [place] [address], [facility] Basophils/100 WBC (Bld) 0.3 % Normal 0.0-1.0 [facility] Comment on above: Order Comment: No: D o not add to previous draw Performed By: #### 3 5200 #### [facility] [address] [place] [address], [facility] Eosinophils (Bld) [#/Vol] 0.4 10*3/uL Normal 0.0-0.5 [facility] Comment on above: Order Comment: No: D o not add to previous draw Performed By: #### 3 5200 #### [facility] [address] [place] [address], [facility] Eosinophils/100 WBC (Bld) 4.5 % Normal 0.0-6.0 [facility] Comment on above: Order Comment: No: D o not add to previous draw Performed By: #### 3 5200 #### [facility] [address] [place], [address] Erythrocyte distribution width (RBC) [Ratio] 16.3 % High 11.5-15.0 [facility] Comment on above: Order Comment: No: D o not add to previous draw Performed By: #### 3 5200 #### [facility] [address] [place] [address], [facility] Hematocrit (Bld) [Volume fraction] 37.4 % Low 39.0-50.0 [facility] Comment on above: Order Comment: No: D o not add to previous draw Performed By: #### 3 5200 #### [facility] [address] [place] [address], [facility] Hemoglobin (Bld) [Mass/Vol] 11.4 g/dL Low 13.0-17.0 [facility] Comment on above: Order Comment: No: D o not add to previous draw Performed By: #### 3 5200 #### [facility] [address] [place] [address], [facility] IMMATURE GRANS 0.3 % Normal 0.0-1.0 [facility] Comment on above: Order Comment: No: D o not add to previous draw Performed By: #### 3 5200 #### [facility] [address] [place] [address], [facility] Lymphocytes (Bld) [#/Vol] 1.8 10*3/uL Normal 1.2-4.0 [facility] Comment on above: Order Comment: No: D o not add to previous draw Performed By: #### 3 5200 #### [facility] [address] [place] [id number], [facility] Lymphocytes/100 WBC (Bld) 19.1 % Low 20.0-45.0 [facility] Comment on above: Order Comment: No: D o not add to previous draw Performed By: #### 3 5200 #### [facility] [address] [place] [id number], [facility] MCH (RBC) [Entitic mass] 27.2 pg Normal 27.0-33.0 [facility] Comment on above: Order Comment: No: D o not add to previous draw Performed By: #### 3 5200 #### [facility] [address] [place] [id number], [facility] MCHC (RBC) [Mass/Vol] 30.5 g/dL Low 32.0-35.0 [facility] Comment on above: Order Comment: No: D o not add to previous draw Performed By: #### 3 5200 #### [facility] [address] [place] [address], [facility] MCV (RBC) [Entitic vol] 89.3 fL Normal 82.0-98.0 [facility] Comment on above: Order Comment: No: D o not add to previous draw Performed By: #### 3 5200 #### [facility] [address] [place] [address], [facility] Monocytes (Bld) [#/Vol] 0.7 10*3/uL Normal 0.1-1.0 [facility] Comment on above: Order Comment: No: D o not add to previous draw Performed By: #### 3 5200 #### [facility] [address] [place] [address], [facility] MONOS 7.4 % Normal 5.0-12.0 [facility] Comment on above: Order Comment: No: D o not add to previous draw Performed By: #### 3 5200 #### [facility] [address] [place] [address], [facility] Neutrophils/100 WBC (Bld) 68.4 % Normal 40.0-72.0 [facility] Comment on above: Order Comment: No: D o not add to previous draw Performed By: #### 3 5200 #### [facility] [address] [place] [address], [facility] Nucleated RBC/100 WBC (Bld) [Ratio] 0 % Normal 0-0 [facility] Comment on above: Order Comment: No: D o not add to previous draw Performed By: #### 3 5200 #### [facility] [address] [place] [address], [place] PLAT CNT 177 10*3/uL Normal 150-400 [facility] Comment on above: Order Comment: No: D o not add to previous draw Performed By: #### 3 5200 #### [facility] [address] [place] [address], [place] RBC (Bld) [#/Vol] 4.19 10*6/uL Low 4.20-5.70 [facility] Comment on above: Order Comment: No: D o not add to previous draw Performed By: #### 3 5200 #### [facility] [address] [place] [address], [place] WBC (Bld) [#/Vol] 9.21 10*3/uL Normal 4.00-10.60 [facility] Comment on above: Order Comment: No: D o not add to previous draw Performed By: #### 3 5200 #### [facility] [address] [place] [address], [facility] MAGNESIUM BLOODon 04-15-2021 Magnesium [Mass/Vol] 2.3 mg/dL Normal 1.9-2.7 [facility] Comment on above: Order Comment: No: D o not add to previous draw Performed By: #### 9 9909, 09043, 02785, 79780 #### [facility] [address] [place] [address], [place] POC GLUCOSE LABon 04-15-2021 Glucose [Mass/Vol] 230 mg/dL High 70-100 [facility] Comment on above: Performed By: #### 8 5499 #### [facility] [address] [place] [address], [place] Glucose [Mass/Vol] 260 mg/dL High 70-100 [facility] Comment on above: Performed By: #### 8 5499 #### [facility] [address] [place] [address], [facility] Glucose [Mass/Vol] 273 mg/dL High 70-100 [facility] Comment on above: Performed By: #### 9 9909, 39792, 10454, 36513 #### [facility] [address] [place] [address], [facility] Glucose [Mass/Vol] 168 mg/dL High 70-100 [facility] Comment on above: Performed By: #### 8 5499 #### [facility] [address] [facility] [place] [address], [facility] PROTHROMBIN TIMEon 1 INR Coag (PPP) [Relative time] 1.77 {INR} High 0.91-1.16 [facility] Comment on above: Order Comment: No: D [...] 1995;108:231S-246S. Performed By: #### 3 5200 #### [facility] [address] [place] [address], [facility] PT Coag (PPP) [Time] 20.7 s High 12.3-14.8 [facility] Comment on above: Order Comment: No: D o not add to previous draw Result Comment: ALL RESULTS MUST BE INTERPRETED WITH RESPECT TO BLOOD DRAWING ARTIFACT OR DILUTION ERROR OF ANTICOAGULANT AT THE TIME OF SAMPLING. Performed By: #### 3 5200 #### [facility] [address] [place] [address], [facility] INR Coag (PPP) [Relative time] 1.80 {INR} High 0.91-1.16 [facility] Comment on above: Order Comment: Unkno wn [...] 1995;108:231S-246S. Performed By: #### 8 5499 #### [facility] [address] [place] [address], [facility] PT Coag (PPP) [Time] 21.0 s High 12.3-14.8 [facility] Comment on above: Order Comment: Unkno wn Result Comment: ALL RESULTS MUST BE INTERPRETED WITH RESPECT TO BLOOD DRAWING ARTIFACT OR DILUTION ERROR OF ANTICOAGULANT AT THE TIME OF SAMPLING. Performed By: #### 8 3329 #### [facility] [address] [place] [address], [facility] BASIC METABOLIC PANELon 05-2 Calcium [Mass/Vol] 9.4 mg/dL Normal 8.6-10.3 [facility] Comment on above: Order Comment: No: D o not add to previous draw Performed By: #### 8 5499 #### [facility] [address] [place] [address], [place] Chloride [Moles/Vol] 95 mmol/L Low 98-107 [facility] Comment on above: Order Comment: No: D o not add to previous draw Performed By: #### 8 5499 #### [facility] [address] [place] [address], [place] CO2 [Moles/Vol] 35 mmol/L High 21-31 [facility] Comment on above: Order Comment: No: D o not add to previous draw Performed By: #### 8 5499 #### [facility] [address] [place] [address], [place] Creatinine [Mass/Vol] 1.77 mg/dL High 0.70-1.30 [facility] Comment on above: Order Comment: No: D o not add to previous draw Performed By: #### 8 5499 #### [facility] [address] [place] [address], [place] eGFR- 47 ml/min/1.73sq m Abnormal >60 [facility] Comment on above: Order Comment: No: D o not add to previous draw Performed By: #### 8 5499 #### [facility] [address] [place] [address], [place] eGFR- non- 39 ml/min/1.73sq m Abnormal >60 [facility] Comment on above: Order Comment: No: D o not add to previous draw Performed By: #### 8 5499 #### [facility] [address] [place] [address], [place] Glucose [Mass/Vol] 135 mg/dL High 70-100 [facility] Comment on above: Order Comment: No: D o not add to previous draw Performed By: #### 8 5499 #### [facility] [address] [place] [address], [facility] Potassium [Moles/Vol] 3.7 mmol/L Normal 3.5-5.1 [facility] Comment on above: Order Comment: No: D o not add to previous draw Performed By: #### 8 [id number] #### [facility] [address] [place] [address], [facility] Sodium [Moles/Vol] 140 mmol/L Normal 136-145 [facility] Comment on above: Order Comment: No: D o not add to previous draw Performed By: #### 8 [id number] #### [facility] [address] [facility] Urea nitrogen [Mass/Vol] 43 mg/dL High 7-25 [facility] Comment on above: Order Comment: No: D o not add to previous draw Performed By: #### 8 [id number] #### [facility] [address] [facility] [place] [address], [facility] CBC W/DIFFon 04-14-2021 ABS IMM GRANS 0.0 10*3/uL Normal 0.0-0.2 [facility] Comment on above: Order Comment: No: D o not add to previous draw Performed By: #### 8 [id number] #### [facility] [address] [facility] [place] [address], [facility] ABS NEUTROPHILS 6.4 10*3/uL Normal 1.6-7.6 [facility] Comment on above: Order Comment: No: D o not add to previous draw Performed By: #### 8 [id number] #### [facility] [address] [place] [address], [facility] Basophils (Bld) [#/Vol] 0.0 10*3/uL Normal 0.0-0.2 [facility] Comment on above: Order Comment: No: D o not add to previous draw Performed By: #### 8 [id number] #### [facility] [address] [place] [id number], [facility] Basophils/100 WBC (Bld) 0.3 % Normal 0.0-1.0 [facility] Comment on above: Order Comment: No: D o not add to previous draw Performed By: #### 8 [id number] #### [facility] [address] [place] [address], [facility] Eosinophils (Bld) [#/Vol] 0.4 10*3/uL Normal 0.0-0.5 [facility] Comment on above: Order Comment: No: D o not add to previous draw Performed By: #### 8 [id number] #### [facility] [address] [place] [id number], [facility] Eosinophils/100 WBC (Bld) 4.0 % Normal 0.0-6.0 [facility] Comment on above: Order Comment: No: D o not add to previous draw Performed By: #### 8 [id number] #### [facility] [address] [facility] [place] [address], [facility] Erythrocyte distribution width (RBC) [Ratio] 16.6 % High 11.5-15.0 [facility] Comment on above: Order Comment: No: D o not add to previous draw Performed By: #### 8 [id number] #### [facility] [address] [place] [id number], [facility] Hematocrit (Bld) [Volume fraction] 35.5 % Low 39.0-50.0 [facility] Comment on above: Order Comment: No: D o not add to previous draw Performed By: #### 8 [id number] #### [facility] [address] [place] [id number], [facility] Hemoglobin (Bld) [Mass/Vol] 10.9 g/dL Low 13.0-17.0 [facility] Comment on above: Order Comment: No: D o not add to previous draw Performed By: #### 8 [id number] #### [facility] [address] [facility] [place] [address], [facility] IMMATURE GRANS 0.3 % Normal 0.0-1.0 [facility] Comment on above: Order Comment: No: D o not add to previous draw Performed By: #### 8 [id number] #### [facility] [address] [place] [address], [facility] Lymphocytes (Bld) [#/Vol] 1.6 10*3/uL Normal 1.2-4.0 [facility] Comment on above: Order Comment: No: D o not add to previous draw Performed By: #### 8 [id number] #### [facility] [address] [place] [address], [facility] Lymphocytes/100 WBC (Bld) 17.3 % Low 20.0-45.0 [facility] Comment on above: Order Comment: No: D o not add to previous draw Performed By: #### 8 [id number] #### [facility] [address] [facility] [place] [address], [facility] MCH (RBC) [Entitic mass] 27.0 pg Normal 27.0-33.0 [facility] Comment on above: Order Comment: No: D o not add to previous draw Performed By: #### 8 [id number] #### [facility] [address] [facility] [place] [address], [facility] MCHC (RBC) [Mass/Vol] 30.7 g/dL Low 32.0-35.0 [facility] Comment on above: Order Comment: No: D o not add to previous draw Performed By: #### 8 [id number] #### [facility] [address] [place] [id number], [facility] MCV (RBC) [Entitic vol] 88.1 fL Normal 82.0-98.0 [facility] Comment on above: Order Comment: No: D o not add to previous draw Performed By: #### 8 [id number] #### [facility] [address] [place] [address], [facility] Monocytes (Bld) [#/Vol] 0.7 10*3/uL Normal 0.1-1.0 [facility] Comment on above: Order Comment: No: D o not add to previous draw Performed By: #### 8 [id number] #### [facility] [address] [place] [address], [facility] MONOS 7.6 % Normal 5.0-12.0 [facility] Comment on above: Order Comment: No: D o not add to previous draw Performed By: #### 8 [id number] #### [facility] [address] [facility] [place] [id number], [facility] Neutrophils/100 WBC (Bld) 70.5 % Normal 40.0-72.0 [facility] Comment on above: Order Comment: No: D o not add to previous draw Performed By: #### 8 [id number] #### [facility] [address] [facility] [place] [address], [facility] Nucleated RBC/100 WBC (Bld) [Ratio] 0 % Normal 0-0 [facility] Comment on above: Order Comment: No: D o not add to previous draw Performed By: #### 8 [id number] #### [facility] [address] [facility]. [place] [id number], [facility] PLAT CNT 157 10*3/uL Normal 150-400 [facility] Comment on above: Order Comment: No: D o not add to previous draw Performed By: #### 8 [id number] #### [facility] [address] [place] [id number], [facility] RBC (Bld) [#/Vol] 4.03 10*6/uL Low 4.20-5.70 [facility] Comment on above: Order Comment: No: D o not add to previous draw Performed By: #### 8 [id number] #### [facility] [address] [place] [address], [facility] WBC (Bld) [#/Vol] 9.10 10*3/uL Normal 4.00-10.60 [facility] Comment on above: Order Comment: No: D o not add to previous draw Performed By: #### 8 [id number] #### [facility] [address] [place] [address], [facility] DIGOXINon 04-14-2021 Digoxin [Mass/Vol] 1.0 ng/mL Normal 0.7-2.0 [facility] Comment on above: Order Comment: Yes: Add to Previous draw if able Performed By: #### 8 [id number] #### [facility] [address] [facility] [place] [address], [facility] MAGNESIUM BLOODon 04-14-2021 Magnesium [Mass/Vol] 2.2 mg/dL Normal 1.9-2.7 [facility] Comment on above: Order Comment: No: D o not add to previous draw Performed By: #### 8 [id number] #### [facility] [address] [facility] [place] [address], [facility] POC GLUCOSE LABon 04-14-2021 Glucose [Mass/Vol] 194 mg/dL High 70-100 [facility] Comment on above: Performed By: #### 8 5499 #### [facility] [address] [facility] [place] [address], [facility] Glucose [Mass/Vol] 188 mg/dL High 70-100 [facility] Comment on above: Performed By: #### 9 9909, 25598, 40519, 84918 #### [facility] [address] [place] [address], [facility] Glucose [Mass/Vol] 130 mg/dL High 70-100 [facility] Comment on above: Performed By: #### 9 9909, 30845, 63273, 66540 #### [facility] [address] [place] [address], [facility] PROTHROMBIN TIMEon 1 INR Coag (PPP) [Relative time] 1.92 {INR} High 0.91-1.16 [facility] Comment on above: Order Comment: No: D [...] CHEST 1995;[id number]. Performed By: #### 9 9909, 28126, 72685, 95902 #### [facility] [address] [place] [address], [facility] PT Coag (PPP) [Time] 22.1 s High 12.3-14.8 [facility] Comment on above: Order Comment: No: D o not add to previous draw Result Comment: ALL RESULTS MUST BE INTERPRETED WITH RESPECT TO BLOOD DRAWING ARTIFACT OR DILUTION ERROR OF ANTICOAGULANT AT THE TIME OF SAMPLING. Performed By: #### 9 9909, 47397, 06832, 23660 #### [facility] [address] [place] [address], [facility] INR Coag (PPP) [Relative time] 1.83 {INR} High 0.91-1.16 [facility] Comment on above: Order Comment: No: D [...] 1995;108:[id number]. Performed By: #### 3 5200 #### [facility] [address] [place] [address], [facility] PT Coag (PPP) [Time] 21.2 s High 12.3-14.8 [facility] Comment on above: Order Comment: No: D o not add to previous draw Result Comment: ALL RESULTS MUST BE INTERPRETED WITH RESPECT TO BLOOD DRAWING ARTIFACT OR DILUTION ERROR OF ANTICOAGULANT AT THE TIME OF SAMPLING. Performed By: #### 3 5200 #### [facility] [address] [place] [address], [facility] BASIC METABOLIC PANELon 05-2 Calcium [Mass/Vol] 8.5 mg/dL Low 8.6-10.3 [facility] Comment on above: Order Comment: No: D o not add to previous draw Performed By: #### 9 9909, 85195, 86869, 77642 #### [facility] [address] [place] [address], [place] Chloride [Moles/Vol] 98 mmol/L Normal 98-107 [facility] Comment on above: Order Comment: No: D o not add to previous draw Performed By: #### 9 9909, 83687, 16966, 32677 #### [facility] [address] [place] [address], [facility] CO2 [Moles/Vol] 32 mmol/L High 21-31 [facility] Comment on above: Order Comment: No: D o not add to previous draw Performed By: #### 9 9909, 67850, 06007, 96508 #### [facility] [address] [place] [address], [facility] Creatinine [Mass/Vol] 1.77 mg/dL High 0.70-1.30 [facility] Comment on above: Order Comment: No: D o not add to previous draw Performed By: #### 9 9909, 43318, 93705, 87453 #### [facility] [address] [place] [address], [facility] eGFR- 47 ml/min/1.73sq m Abnormal >60 [facility] Comment on above: Order Comment: No: D o not add to previous draw Performed By: #### 9 9909, 41406, 42033, 87410 #### [facility] [address] [place] [address], [facility] eGFR- non- 39 ml/min/1.73sq m Abnormal >60 [facility] Comment on above: Order Comment: No: D o not add to previous draw Performed By: #### 9 9909, 57115, 05826, 20476 #### [facility] [address] [place] [address], [place] Glucose [Mass/Vol] 129 mg/dL High 70-100 [facility] Comment on above: Order Comment: No: D o not add to previous draw Performed By: #### 9 9909, 46311, 12356, 79694 #### [facility] [address] [place] [address], [facility] Potassium [Moles/Vol] 3.8 mmol/L Normal 3.5-5.1 [facility] Comment on above: Order Comment: No: D o not add to previous draw Performed By: #### 9 9909, 99514, 18124, 36220 #### [facility] [address] [place] [address], [facility] Sodium [Moles/Vol] 138 mmol/L Normal 136-145 [facility] Comment on above: Order Comment: No: D o not add to previous draw Performed By: #### 9 9909, 96095, 60876, 65570 #### [facility] [address] [place] [address], [facility] Urea nitrogen [Mass/Vol] 39 mg/dL High 7-25 [facility] Comment on above: Order Comment: No: D o not add to previous draw Performed By: #### 9 9909, 93963, 70103, 95958 #### [facility] [address] [place] [address], [facility] CBC COMPLETE BLOOD COUNTon - Erythrocyte distribution width (RBC) [Ratio] 16.8 % High 11.5-15.0 [facility] Comment on above: Order Comment: No: D o not add to previous draw Performed By: #### 8 [id number] #### [facility] [address] [place] [address], [facility] Hematocrit (Bld) [Volume fraction] 33.7 % Low 39.0-50.0 [facility] Comment on above: Order Comment: No: D o not add to previous draw Performed By: #### 8 5499 #### [facility] [address] [place] [address], [facility] Hemoglobin (Bld) [Mass/Vol] 10.2 g/dL Low 13.0-17.0 [facility] Comment on above: Order Comment: No: D o not add to previous draw Performed By: #### 8 5499 #### [facility] [address] [place] [address], [facility] MCH (RBC) [Entitic mass] 27.1 pg Normal 27.0-33.0 [facility] Comment on above: Order Comment: No: D o not add to previous draw Performed By: #### 8 5499 #### [facility] [address] [place] [address], [facility] MCHC (RBC) [Mass/Vol] 30.3 g/dL Low 32.0-35.0 [facility] Comment on above: Order Comment: No: D o not add to previous draw Performed By: #### 8 5499 #### [facility] [address] [place] [id number], [facility] MCV (RBC) [Entitic vol] 89.6 fL Normal 82.0-98.0 [facility] Comment on above: Order Comment: No: D o not add to previous draw Performed By: #### 8 5499 #### [facility] [address] [facility] [place] [id number], [facility] Nucleated RBC/100 WBC (Bld) [Ratio] 0 % Normal 0-0 [facility] Comment on above: Order Comment: No: D o not add to previous draw Performed By: #### 8 5499 #### [facility] [address] [facility] [place] [id number], [facility] PLAT CNT 131 10*3/uL Low 150-400 [facility] Comment on above: Order Comment: No: D o not add to previous draw Performed By: #### 8 5499 #### [facility] [address] [place] [id number], [facility] RBC (Bld) [#/Vol] 3.76 10*6/uL Low 4.20-5.70 [facility] Comment on above: Order Comment: No: D o not add to previous draw Performed By: #### 8 5499 #### [facility] [address] [place] [address], [place] WBC (Bld) [#/Vol] 11.41 10*3/uL High 4.00-10.60 [facility] Comment on above: Order Comment: No: D o not add to previous draw Performed By: #### 8 5499 #### [facility] [address] [place] [address], [place] MAGNESIUM BLOODon 04-13-2021 Magnesium [Mass/Vol] 2.3 mg/dL Normal 1.9-2.7 [facility] Comment on above: Order Comment: No: D o not add to previous draw Performed By: #### 9 9909, 88438, 50302, 93959 #### [facility] [address] [place] [address], [place] POC GLUCOSE LABon 04-13-2021 Glucose [Mass/Vol] 210 mg/dL High 70-100 [facility] Comment on above: Performed By: #### 8 5499 #### [facility] [address] [place] [address], [place] Glucose [Mass/Vol] 90 mg/dL Normal 70-100 [facility] Comment on above: Performed By: #### 9 9909, 73166, 74611, 09055 #### [facility] [address] [place] [address], [place] Glucose [Mass/Vol] 104 mg/dL High 70-100 [facility] Comment on above: Performed By: #### 8 5499 #### [facility] [address] [place] [address], [place] Glucose [Mass/Vol] 77 mg/dL Normal 70-100 [facility] Comment on above: Performed By: #### 9 9909, 12558, 68357, 22904 #### [facility] [address] [place] [address], [place] Glucose [Mass/Vol] 113 mg/dL High 70-100 [facility] Comment on above: Performed By: #### 9 9909, 11770, 92093, 24676 #### [facility] [address] [facility] [place] [address], [facility] PROTHROMBIN TIMEon INR Coag (PPP) [Relative time] 2.19 {INR} High 0.91-1.16 [facility] Comment on above: Order Comment: No: D [...] RANGE. CHEST 1995;108:231S-246S. Performed By: #### 3 8690 #### [facility] [address] [facility] [place] [address], [facility] PT Coag (PPP) [Time] 24.5 s High 12.3-14.8 [facility] Comment on above: Order Comment: No: D o not add to previous draw Result Comment: ALL RESULTS MUST BE INTERPRETED WITH RESPECT TO BLOOD DRAWING ARTIFACT OR DILUTION ERROR OF ANTICOAGULANT AT THE TIME OF SAMPLING. Performed By: #### 3 5200 #### [facility] [address] [facility] [place] [address], [facility] TROPONIN-Ion 04-13-2021 Troponin I.cardiac [Mass/Vol] 0.05 ng/mL High 0.00-0.04 [facility] Comment on above: Order Comment: No: D o not add to previous draw Result Comment: REFE RENCE RANGES: 0.00 - 0.04 ng/ml NORMAL 0.05 - 0.50 ng/ml INDETERMINATE > 0.50 ng/ml CONSISTENT WITH AN M.I. Performed By: #### 3 5200 #### [address] US ABDOMEN LIMITED FOR ASCIT ESon 04-13-2021 US ABDOMEN LIMITED FOR ASCITES [facility] Department of Radiology [address] [place] [id number] Patient Name: ADWOA PORTER : 1955 Sex: M Age: Race: White Pt. Location: [id number] Patient Status: I Ordered Date: 04/13/2021 3:45:00 [...] reports Electronically signed: Shannon Weathers. Transcribed by: [email or web address], User Resident: BIANCA NICOLE Electronically Signed by: SHANNON WEATHERS @ 04/13/2021 04:07 PM I personally read this/these film(s) with this resident Normal [facility] Comment on above: Order Comment: No: D o not add to previous draw *BLOOD CULTUREon 04-12-2021 *BLOOD CULTURE Clinical Report: (D) Specimen: BLOOD CULTURE Collected: 04/12/2021 20:24 Status: Final Last Updated: 04/18/2021 07:10 (1) Right AC 2019 CULT RES (Final) No Growth Day 5 Normal [facility] Comment on above: Order Comment: Right AC 2018 Performed By: #### 8 [id number] #### [facility] [address] *BLOOD CULTURE Clinical Report: (D) Specimen: BLOOD CULTURE Collected: 04/12/2021 20:24 Status: Final Last Updated: 04/18/2021 07:10 (1) Left AC 2021 CULT RES (Final) No Growth Day 5 Normal [facility] Comment on above: Order Comment: Left AC 2021 Performed By: #### 8 5499 #### [facility] [address] BNP (B-TYPE NATRIURETIC PEPT JJ)on 04-12-2021 Natriuretic peptide B (Bld) [Mass/Vol] 502 pg/mL High 0-100 [facility] Comment on above: Order Comment: No: D o not add to previous draw Result Comment: Give n the appropriate clinical setting a BNP result of >100 pg/mL indicates congestive heart failure. Performed By: #### 9 9909, 42870, 87334, 64460 #### [facility] [address] [place] [address], [facility] CBC W/DIFFon 04-12-2021 ABS IMM GRANS 0.1 10*3/uL Normal 0.0-0.2 [facility] Comment on above: Performed By: #### 8 5499 #### [facility] [address] [place] [address], [facility] ABS NEUTROPHILS 10.5 10*3/uL High 1.6-7.6 [facility] Comment on above: Performed By: #### 8 5499 #### [facility] [address] [place] [address], [facility] Basophils (Bld) [#/Vol] 0.0 10*3/uL Normal 0.0-0.2 [facility] Comment on above: Performed By: #### 8 5499 #### [facility] [address] [place] [id number], [facility] Basophils/100 WBC (Bld) 0.2 % Normal 0.0-1.0 [facility] Comment on above: Performed By: #### 8 5499 #### [facility] [address] [facility] [place] [address], [facility] Eosinophils (Bld) [#/Vol] 0.3 10*3/uL Normal 0.0-0.5 [facility] Comment on above: Performed By: #### 8 5499 #### [facility] [address] [facility] [place] [address], [facility] Eosinophils/100 WBC (Bld) 2.1 % Normal 0.0-6.0 [facility] Comment on above: Performed By: #### 8 5499 #### [facility] [address] [facility] [place] [address], [facility] Erythrocyte distribution width (RBC) [Ratio] 17.1 % High 11.5-15.0 [facility] Comment on above: Performed By: #### 8 [id number] #### [facility] [address] [place] [address], [facility] Hematocrit (Bld) [Volume fraction] 34.8 % Low 39.0-50.0 [facility] Comment on above: Performed By: #### 8 [id number] #### [facility] [address] [facility] [place] [address], [facility] Hemoglobin (Bld) [Mass/Vol] 10.6 g/dL Low 13.0-17.0 [facility] Comment on above: Performed By: #### 8 5499 #### [facility] [address] [facility] [place] [address], [facility] IMMATURE GRANS 0.4 % Normal 0.0-1.0 [facility] Comment on above: Performed By: #### 8 5499 #### [facility] [address] [facility]. [address] Lymphocytes (Bld) [#/Vol] 1.4 10*3/uL Normal 1.2-4.0 [facility] Comment on above: Performed By: #### 8 5499 #### [facility] [address] Lymphocytes/100 WBC (Bld) 10.5 % Low 20.0-45.0 [facility] Comment on above: Performed By: #### 8 [id number] #### [facility] [address] [facility]. [address] MCH (RBC) [Entitic mass] 27.3 pg Normal 27.0-33.0 [facility] Comment on above: Performed By: #### 8 5499 #### [facility] [address] [facility] [place] [address], [facility] MCHC (RBC) [Mass/Vol] 30.5 g/dL Low 32.0-35.0 [facility] Comment on above: Performed By: #### 8 5499 #### [facility] [address] [facility] [place] [address], [facility] MCV (RBC) [Entitic vol] 89.7 fL Normal 82.0-98.0 [facility] Comment on above: Performed By: #### 8 5499 #### [facility] [address] [place] [address], [facility] Monocytes (Bld) [#/Vol] 0.8 10*3/uL Normal 0.1-1.0 [facility] Comment on above: Performed By: #### 8 5499 #### [facility] [address] [place] [address], [facility] MONOS 6.4 % Normal 5.0-12.0 [facility] Comment on above: Performed By: #### 8 5499 #### [facility] [address] [place] [address], [facility] Neutrophils/100 WBC (Bld) 80.4 % High 40.0-72.0 The [facility] Comment on above: Performed By: #### 8 [id number] #### [facility] [address] Nucleated RBC/100 WBC (Bld) [Ratio] 0 % Normal 0-0 [facility] Comment on above: Performed By: #### 8 [id number] #### [facility] [address] [place] [address], [facility] PLAT CNT 138 10*3/uL Low 150-400 [facility] Comment on above: Performed By: #### 8 [id number] #### [facility] [address] [place] [address], [facility] RBC (Bld) [#/Vol] 3.88 10*6/uL Low 4.20-5.70 [facility] Comment on above: Performed By: #### 8 [id number] #### [facility] [address] [place] [address], [facility] WBC (Bld) [#/Vol] 13.05 10*3/uL High 4.00-10.60 [facility] Comment on above: Performed By: #### 8 [id number] #### [facility] [address] [place] [address], [place] LIVER BATTERYon 04-12-2021 Albumin [Mass/Vol] 3.8 g/dL Normal 3.5-5.7 [facility] Comment on above: Order Comment: No: D o not add to previous draw Performed By: #### 9 [id number], [id number], 47424, 18979 #### [facility] [address] [place] [address], [place] ALKALINE PHOSPH 80 IU/L Normal 34-104 [facility] Comment on above: Order Comment: No: D o not add to previous draw Performed By: #### 9 [id number], 04970, 58869, 32576 #### [facility] [address] [place] [address], [place] ALT [Catalytic activity/Vol] 10 U/L Normal 7-52 [facility] Comment on above: Order Comment: No: D o not add to previous draw Performed By: #### 9 [id number], 56818, 29724, 59688 #### [facility] [address] [place] [address], [place] AST [Catalytic activity/Vol] 15 U/L Normal 13-39 [facility] Comment on above: Order Comment: No: D o not add to previous draw Performed By: #### 9 9909, 43088, 82716, 72504 #### [facility] [address] [place] [address], [place] Bilirubin [Mass/Vol] 1.0 mg/dL Normal 0.3-1.0 [facility] Comment on above: Order Comment: No: D o not add to previous draw Performed By: #### 9 9909, 59376, 50822, 33361 #### [facility] [address] [place] [address], [place] Bilirubin.direct [Mass/Vol] 0.5 mg/dL High 0.0-0.2 [facility] Comment on above: Order Comment: No: D o not add to previous draw Performed By: #### 9 9909, 61914, 46291, 11891 #### [facility] [address] [place] [address], [place] Protein [Mass/Vol] 7.2 g/dL Normal 6.0-8.3 [facility] Comment on above: Order Comment: No: D o not add to previous draw Performed By: #### 9 9909, 97597, 96147, 35760 #### [facility] [address] [place] [address], [place] MAGNESIUM BLOODon 04-12-2021 Magnesium [Mass/Vol] 2.5 mg/dL Normal 1.9-2.7 [facility] Comment on above: Order Comment: No: D o not add to previous draw Performed By: #### 9 9909, 49653, 11239, 74786 #### [facility] [address] [place] [address], [place] PHOSPHORUS BLOODon Phosphate [Mass/Vol] 3.7 mg/dL Normal 2.5-5.0 [facility] Comment on above: Order Comment: No: D o not add to previous draw Performed By: #### 9 9909, 70184, 72061, 22360 #### [facility] [address] [place] [address], [place] POC GLUCOSE LABon 04-12-2021 Glucose [Mass/Vol] 190 mg/dL High 70-100 [facility] Comment on above: Performed By: #### 8 [id number] #### [facility] [address] [place] [address], [place] Glucose [Mass/Vol] 117 mg/dL High 70-100 [facility] Comment on above: Performed By: #### 8 [id number] #### [facility] [address] [place] [address], [place] PORTABLE CHEST 1 VIEWon 05-2 5-2021 PORTABLE CHEST 1 VIEW [facility] Department of Radiology [address] [place] [address] Patient Name: ADWOA PORTER : 1955 Sex: M Age: Race: White Pt. Location: [address] [place] [address] Patient Status: I Ordered Date: 04/12/2021 4:55:00 PM Completed Date: 04/12/2021 05:16 PM Requesting Provider: ADREIL NAPOLES Attending Provider: CECILE MAJOR Report Copy [...] edema. Electronically signed: Michaelle Villalba. Transcribed by: [email or web address], User Resident: Electronically Signed by: MICHAELLE VILLALBA @ 04/12/2021 05:27 PM Normal [facility] Comment on above: Order Comment: evalu ate for Pulmonary Edema PROTHROMBIN TIMEon INR Coag (PPP) [Relative time] 2.58 {INR} High 0.91-1.16 [facility] Comment on above: Order Comment: No: D [...] 1995;[id number]. Performed By: #### 3 [id number] #### [facility] [address] [place] [address], [facility] PT Coag (PPP) [Time] 27.9 s High 12.3-14.8 [facility] Comment on above: Order Comment: No: D o not add to previous draw Result Comment: ALL RESULTS MUST BE INTERPRETED WITH RESPECT TO BLOOD DRAWING ARTIFACT OR DILUTION ERROR OF ANTICOAGULANT AT THE TIME OF SAMPLING. Performed By: #### 3 [id number] #### [facility] [address] [place] [address], [facility] TROPONIN-Ion 04-12-2021 Troponin I.cardiac [Mass/Vol] 0.05 ng/mL High 0.00-0.04 [facility] Comment on above: Order Comment: No: D o not add to previous draw Result Comment: REFE RENCE RANGES: 0.00 - 0.04 ng/ml NORMAL 0.05 - 0.50 ng/ml INDETERMINATE > 0.50 ng/ml CONSISTENT WITH AN M.I. Performed By: #### 9 9909, 62121, 11906, 58709 #### [facility] [address] [place] [address], [place] Provider Letteron 11-16-2020 Provider Letter (Inserted Image. Radha ble to display) November 16, 2020 ADWOA PORTER [address] [place] [id number] ADWOA PORTER 1955 Dear Adwoa, You missed [...] appreciate your understanding. Sincerely, [facility] [address] [facility], [place] [address] [facility] Coding Summary.on 04-05-2020 Coding Summary. CODING DATE: 020 FINAL [facility] STATUS: Home (Routine DC) PAYOR: [...] Benjamin CphT Date Saved: 04/05/2020 10:26 am [facility] Aerobic cultureon 12-04-2019 Aerobic Culture Staphylococcus aureus [facility] Aerobic Culture Klebsiella oxytoca F [facility] Transfusion reaction panel ( ABO, Rh)on 12-04-2019 Microscopic observation Gram stain Nom (Unsp spec) [facility] Vital Signs Date Time Vital Sign Value Performing Clinician Facility 02-05-2024 16:00-0400 Body temperature 97.2 [degF] DO Vinnie Stewart Work Phone: [facility] 02-05-2024 16:00-0400 Diastolic blood pressure 80 mm[Hg] DO Vinnie Stewart Work Phone: [facility] 02-05-2024 16:00-0400 Heart rate 85 /min DO Vinnie Stewart Work Phone: [facility] 02-05-2024 16:00-0400 Respiratory rate 18 /min DO Vinnie Stewart Work Phone: [facility] 02-05-2024 16:00-0400 SaO2% (BldA) [Mass fraction] 100 % DO Vinnie Stewart Work Phone: [facility] 02-05-2024 16:00-0400 Systolic blood pressure 138 mm[Hg] DO Vinnie Stewart Work Phone: [facility] 02-05-2024 08:45-0400 Inhaled oxygen flow rate 2 L/min DO Vinnie Stewart Work Phone: [facility] 02-05-2024 06:00-0400 Body weight 95.4 kg DO Vinnie Stewart Work Phone: [facility] 02-04-2024 16:40-0400 Body height 175.26 cm DO Vinnie Stewart Work Phone: [facility] 02-01-2024 11:52-0400 Inhaled oxygen concentration 10 % DO Vinnie Stewart Work Phone: [facility] 11-22-2023 15:15-0500 Body height 170.18 cm Vinnie Stewart Other [facility] 11-22-2023 15:15-0500 Body mass index (BMI) [Ratio] 29.6 kg/m2 Vinnie Stewart Other [facility] Other 11-22-2023 15:15-0500 Body temperature 97.9 [degF] Vinnie Stewart Other [facility] Other 11-22-2023 15:15-0500 Body weight 85.73 kg Vinnie Stewart Other [facility] Other 11-22-2023 15:15-0500 Body weight 85.72 kg DO Vinnie Stewart Work Phone: [facility] 11-22-2023 15:15-0500 Diastolic blood pressure 60 mm[Hg] Vinnie Stewart Other [facility] 11-22-2023 15:15-0500 Respiratory rate 18 /min Vinnie Stewart Other [facility] Other 11-22-2023 15:15-0500 SaO2% (BldA) [Mass fraction] 98 % Vinnie Stewart Other [facility] Other 11-22-2023 15:15-0500 Systolic blood pressure 122 mm[Hg] Vinnie Stewart Other [facility] 11-15-2023 13:40-0500 Body height 170.18 cm Simba Jac Other [facility] 11-15-2023 13:40-0500 Body mass index (BMI) [Ratio] 28.94 kg/m2 Simba Jac Other [facility] Other 11-15-2023 13:40-0500 Body temperature 96.4 [degF] Simba Jac Other [facility] Other 11-15-2023 13:40-0500 Body weight 83.83 kg Simba Jac Other [facility] Other 11-15-2023 13:40-0500 Body weight 83.82 kg DO Vinnie Stewart Work Phone: [facility] 11-15-2023 13:40-0500 Diastolic blood pressure 62 mm[Hg] Simba Jac Other [facility] 11-15-2023 13:40-0500 Respiratory rate 18 /min Simba Jac Other [facility] Other 11-15-2023 13:40-0500 SaO2% (BldA) [Mass fraction] 92 % Simba Jac Other [facility] Other 11-15-2023 13:40-0500 Systolic blood pressure 110 mm[Hg] Simba Jac Other [facility] 11-13-2023 13:30-0500 Body height 170.18 cm Brittnee Scally Other [facility] 11-13-2023 13:30-0500 Body mass index (BMI) [Ratio] 28.94 kg/m2 Brittnee Scally Other [facility] Other 11-13-2023 13:30-0500 Body weight 83.83 kg Brittnee Scally Other [facility] Other 11-13-2023 13:30-0500 Body weight 83.82 kg DO Vinnie Stewart Work Phone: [facility] 11-13-2023 13:30-0500 Diastolic blood pressure 63 mm[Hg] Brittnee Scally Other [facility] 11-13-2023 13:30-0500 Respiratory rate 18 /min Brittnee Scally Other [facility] Other 11-13-2023 13:30-0500 SaO2% (BldA) [Mass fraction] 95 % Brittnee Scally Other [facility] Other 11-13-2023 13:30-0500 Systolic blood pressure 107 mm[Hg] Brittnee Scally Other [facility] 10-08-2023 10:00-0500 Body height 170.18 cm Brittnee Scally Other [facility] 10-08-2023 10:00-0500 Body mass index (BMI) [Ratio] 30.57 kg/m2 Brittnee Scally Other [facility] Other 10-08-2023 10:00-0500 Body weight 88.54 kg Brittnee Scally Other [facility] 09-18-2023 15:00-0400 Body height 170.18 cm Brittnee Scally Other [facility] Other 09-18-2023 15:00-0400 Diastolic blood pressure 72 mm[Hg] Brittnee Scally Other [facility] Other 09-18-2023 15:00-0400 Respiratory rate 18 /min Brittnee Scally Other [facility] Other 09-18-2023 15:00-0400 SaO2% (BldA) [Mass fraction] 96 % Brittnee Scally Other [facility] Other 09-18-2023 15:00-0400 Systolic blood pressure 115 mm[Hg] Brittnee Scally Other [facility] Other 06-29-2023 10:30-0400 Body height 170.18 cm Vinnie Stewart Other [facility] Other 06-29-2023 10:30-0400 Body mass index (BMI) [Ratio] 31.99 kg/m2 Vinnie Stewart Other [facility] Other 06-29-2023 10:30-0400 Body weight 92.67 kg Vinnie Stewart Other [facility] Other 06-29-2023 10:30-0400 Diastolic blood pressure 72 mm[Hg] Vinnie Stewart Other [facility] Other 06-29-2023 10:30-0400 Respiratory rate 18 /min Vinnie Stewart Other [facility] Other 06-29-2023 10:30-0400 SaO2% (BldA) [Mass fraction] 95 % Vinnie Stewart Other [facility] Other 06-29-2023 10:30-0400 Systolic blood pressure 124 mm[Hg] Vinnie Stewart Other [facility] Other 06-29-2023 08:15-0400 Body height 170.18 cm Brittnee Remaly Other [facility] Other 06-29-2023 08:15-0400 Diastolic blood pressure 62 mm[Hg] Brittnee Scally Other [facility] Other 06-29-2023 08:15-0400 Respiratory rate 18 /min Brittnee Spain Other [facility] Other 06-29-2023 08:15-0400 SaO2% (BldA) [Mass fraction] 94 % Brittnee Spain Other [facility] Other 06-29-2023 08:15-0400 Systolic blood pressure 104 mm[Hg] Brittnee Spain Other [facility] Other 06-18-2023 11:30-0400 Body height 170.18 cm Vinnie Stewart Other [facility] Other 06-18-2023 11:30-0400 Body mass index (BMI) [Ratio] 32.89 kg/m2 Vinnie Stewart Other [facility] Other 06-18-2023 11:30-0400 Body temperature 97.5 [degF] Vinnie Stewart Other [facility] Other 06-18-2023 11:30-0400 Body weight 95.26 kg Vinnie Stewart Other [facility] Other 06-18-2023 11:30-0400 Diastolic blood pressure 72 mm[Hg] Vinnie Stewart Other [facility] Other 06-18-2023 11:30-0400 Respiratory rate 18 /min Vinnie Stewart Other [facility] Other 06-18-2023 11:30-0400 SaO2% (BldA) [Mass fraction] 94 % Vinnie Stewart Other [facility] Other 06-18-2023 11:30-0400 Systolic blood pressure 126 mm[Hg] Vinnie Stewart Other [facility] Other 04-19-2023 11:20-0400 Body height 170.18 cm Simba Jac Other [facility] Other 04-19-2023 11:20-0400 Body mass index (BMI) [Ratio] 32.76 kg/m2 Simba Jac Other [facility] Other 04-19-2023 11:20-0400 Body temperature 97.6 [degF] Simba Jac Other [facility] Other 04-19-2023 11:20-0400 Body weight 94.89 kg Simba Jac Other [facility] Other 04-19-2023 11:20-0400 Diastolic blood pressure 60 mm[Hg] Simba Jac Other [facility] Other 04-19-2023 11:20-0400 Respiratory rate 18 /min Simba Jac Other [facility] Other 04-19-2023 11:20-0400 SaO2% (BldA) [Mass fraction] 98 % Simba Jac Other [facility] Other 04-19-2023 11:20-0400 Systolic blood pressure 120 mm[Hg] Simba Jac Other [facility] Other 03-21-2023 14:00-0400 Body height 170.18 cm Vinnie Stewart Other [facility] Other 03-21-2023 14:00-0400 Body mass index (BMI) [Ratio] 32.42 kg/m2 Vinnie Stewart Other [facility] Other 03-21-2023 14:00-0400 Body weight 93.9 kg Vinnie Stewart Other [facility] Other 03-21-2023 14:00-0400 Diastolic blood pressure 86 mm[Hg] Vinnie Stewart Other [facility] Other 03-21-2023 14:00-0400 Respiratory rate 18 /min Vinnie Stewart Other [facility] Other 03-21-2023 14:00-0400 SaO2% (BldA) [Mass fraction] 94 % Vinnie Stewart Other [facility] Other 03-21-2023 14:00-0400 Systolic blood pressure 132 mm[Hg] Vinnie Stewart Other [facility] Other 02-21-2023 15:45-0400 Body height 170.18 cm Vinnie Stewart Other [facility] Other 02-21-2023 15:45-0400 Body mass index (BMI) [Ratio] 32.57 kg/m2 Vinnie Stewart Other [facility] Other 02-21-2023 15:45-0400 Body weight 94.35 kg Vinnie Stewart Other [facility] Other 02-21-2023 15:45-0400 Diastolic blood pressure 76 mm[Hg] Vinnie Stewart Other [facility] Other 02-21-2023 15:45-0400 Respiratory rate 18 /min Vinnie Stewart Other [facility] Other 02-21-2023 15:45-0400 SaO2% (BldA) [Mass fraction] 97 % Vinnie Stewart Other [facility] Other 02-21-2023 15:45-0400 Systolic blood pressure 134 mm[Hg] Vinnie Stewart Other [facility] Other 02-14-2023 15:48-0400 Body temperature 97.5 [degF] DO Vinnie Stewart Work Phone: [facility] 02-14-2023 15:48-0400 Diastolic blood pressure 80 mm[Hg] DO Vinnie Stewart Work Phone: [facility] 02-14-2023 15:48-0400 Heart rate 86 /min DO Vinnie Stewart Work Phone: [facility] 02-14-2023 15:48-0400 Respiratory rate 16 /min DO Vinnie Stewart Work Phone: [facility] 02-14-2023 15:48-0400 SaO2% (BldA) [Mass fraction] 98 % DO Vinnie Stewart Work Phone: [facility] 02-14-2023 15:48-0400 Systolic blood pressure 137 mm[Hg] DO Vinnie Stewart Work Phone: [facility] 02-14-2023 14:01-0400 Body height 175.26 cm DO Vinnie Stewart Work Phone: [facility] 02-14-2023 06:00-0400 Body weight 97 kg DO Vinnie Stewart Work Phone: [facility] 02-13-2023 20:36-0400 Diastolic blood pressure 79 mm[Hg] DO Vinnie Stewart Work Phone: [facility] 02-13-2023 20:36-0400 Heart rate 86 /min DO Vinnie Stewart Work Phone: [facility] 02-13-2023 20:36-0400 Respiratory rate 16 /min DO Vinnie Stewart Work Phone: [facility] 02-13-2023 20:36-0400 SaO2% (BldA) [Mass fraction] 94 % DO Vinnie Stewart Work Phone: [facility] 02-13-2023 20:36-0400 Systolic blood pressure 146 mm[Hg] DO Vinnie Stewart Work Phone: [facility] 02-13-2023 15:38-0400 Body height 175.26 cm DO Vinnie Stewart Work Phone: [facility] 02-13-2023 15:38-0400 Body temperature 97.8 [degF] DO Vinnie Stewart Work Phone: [facility] 02-13-2023 15:38-0400 Body weight 96.16 kg DO Vinnie Stewart Work Phone: [facility] 02-09-2023 12:45-0400 Body height 170.18 cm Vinnie Stewart Other [facility] Other 02-09-2023 12:45-0400 Body mass index (BMI) [Ratio] 33.2 kg/m2 Vinnie Stewart Other [facility] Other 02-09-2023 12:45-0400 Body weight 96.16 kg Vinnie Stewart Other [facility] Other 02-09-2023 12:45-0400 Diastolic blood pressure 82 mm[Hg] Vinnie Stewart Other [facility] Other 02-09-2023 12:45-0400 Respiratory rate 18 /min Vinnie Stewart Other [facility] Other 02-09-2023 12:45-0400 SaO2% (BldA) [Mass fraction] 94 % Vinnie Stewart Other [facility] Other 02-09-2023 12:45-0400 Systolic blood pressure 128 mm[Hg] Vinnie Stewart Other [facility] Other 01-17-2023 15:30-0500 Body height 170.18 cm Vinnie Stewart Other [facility] Other 01-17-2023 15:30-0500 Body mass index (BMI) [Ratio] 36.02 kg/m2 Vinnie Stewart Other [facility] Other 01-17-2023 15:30-0500 Body weight 104.33 kg Vinnie Stewart Other [facility] Other 01-17-2023 15:30-0500 Diastolic blood pressure 82 mm[Hg] Vinnie Stewart Other [facility] Other 01-17-2023 15:30-0500 Respiratory rate 18 /min Vinnie Stewart Other [facility] Other 01-17-2023 15:30-0500 SaO2% (BldA) [Mass fraction] 94 % Vinnie Stewart Other [facility] Other 01-17-2023 15:30-0500 Systolic blood pressure 134 mm[Hg] Vinnie Stewart Other [facility] [employer] Other 12-04-2022 13:06-0500 Body height 175.26 cm DO Vinnie Stewart Work Phone: [facility] 12-04-2022 13:06-0500 Body weight 100.8 kg DO Vinnie Stewart Work Phone: [facility] 12-04-2022 13:06-0500 Diastolic blood pressure 84 mm[Hg] DO Vinnie Stewart Work Phone: [facility] 12-04-2022 13:06-0500 Heart rate 86 /min DO Vinnie Stewart Work Phone: [facility] 12-04-2022 13:06-0500 Respiratory rate 20 /min DO Vinnie Stewart Work Phone: [facility] 12-04-2022 13:06-0500 SaO2% (BldA) [Mass fraction] 96 % DO Vinnie Stewart Work Phone: [facility] 12-04-2022 13:06-0500 Systolic blood pressure 129 mm[Hg] DO Vinnie Stewart Work Phone: [facility] 11-07-2022 14:45-0500 Body height 170.18 cm Brittnee Scally Other [facility] Other 11-07-2022 14:45-0500 Body mass index (BMI) [Ratio] 39.7 kg/m2 Brittnee Scally Other [facility] Other 11-07-2022 14:45-0500 Body weight 114.99 kg Brittnee Scally Other [facility] Other 11-07-2022 14:45-0500 Diastolic blood pressure 68 mm[Hg] Brittnee Scally Other [facility] Other 11-07-2022 14:45-0500 Respiratory rate 20 /min Brittnee Hodgsonly Other [facility] Other 11-07-2022 14:45-0500 SaO2% (BldA) [Mass fraction] Brittnee Hodgsonly Other [facility] Other 11-07-2022 14:45-0500 Systolic blood pressure 108 mm[Hg] Brittnee Hodgsonly Other [facility] Other 09-28-2022 13:00-0500 Diastolic blood pressure 67 mm[Hg] Gisselle Dickey Other [facility] Other 09-28-2022 13:00-0500 Respiratory rate 18 /min Gisselle Dickey Other [facility] Other 09-28-2022 13:00-0500 SaO2% (BldA) [Mass fraction] 92 % Gisselle Dickey Other [facility] Other 09-28-2022 13:00-0500 Systolic blood pressure 123 mm[Hg] Gisselle Dickey Other [facility] Other 09-28-2022 12:40-0500 Body height 170.18 cm Simba Jac Other [facility] Other 09-28-2022 12:40-0500 Body mass index (BMI) [Ratio] 37.93 kg/m2 Simba Jac Other [facility] Other 09-28-2022 12:40-0500 Body temperature 96.2 [degF] Simba Jac Other [facility] Other 09-28-2022 12:40-0500 Body weight 109.86 kg Simba Jac Other [facility] Other 09-28-2022 12:40-0500 Diastolic blood pressure 81 mm[Hg] Simba Jac Other [facility] Other 09-28-2022 12:40-0500 Respiratory rate 20 /min Simba Jac Other [facility] Other 09-28-2022 12:40-0500 SaO2% (BldA) [Mass fraction] 90 % Simba Jac Other [facility] Other 09-28-2022 12:40-0500 Systolic blood pressure 139 mm[Hg] Simba Jac Other [facility] Other 09-13-2022 14:00-0400 Body height 170.18 cm Vinnie Stewart Other [facility] Other 09-13-2022 14:00-0400 Body mass index (BMI) [Ratio] 35.71 kg/m2 Vinnie Stewart Other [facility] Other 09-13-2022 14:00-0400 Body weight 103.42 kg Vinnie Stewart Other [facility] Other 09-13-2022 14:00-0400 Diastolic blood pressure 81 mm[Hg] Vinnie Stewart Other [facility] Other 09-13-2022 14:00-0400 Respiratory rate 16 /min Vinnie Stewart Other [facility] Other 09-13-2022 14:00-0400 SaO2% (BldA) [Mass fraction] 97 % Vinnie Stewart Other [facility] Other 09-13-2022 14:00-0400 Systolic blood pressure 119 mm[Hg] Vinnie Osvaldo Other [facility] Other 07-31-2022 15:30-0400 Body height 170.18 cm Brittnee Scally Other [facility] Other 07-31-2022 15:30-0400 Body mass index (BMI) [Ratio] 35.55 kg/m2 Brittnee Scally Other [facility] Other 07-31-2022 15:30-0400 Body weight 102.97 kg Brittnee Scally Other [facility] Other 07-31-2022 15:30-0400 Diastolic blood pressure 78 mm[Hg] Brittnee Scally Other [facility] Other 07-31-2022 15:30-0400 Respiratory rate 20 /min Brittnee Scally Other [facility] Other 07-31-2022 15:30-0400 SaO2% (BldA) [Mass fraction] 95 % Brittnee Scally Other [facility] Other 07-31-2022 15:30-0400 Systolic blood pressure 125 mm[Hg] Brittnee Scally Other [facility] Other 06-20-2022 12:15-0400 Body height 170.18 cm Vinnie Stewart Other [facility] Other 06-20-2022 12:15-0400 Body mass index (BMI) [Ratio] 35.55 kg/m2 Vinnie Stewart Other [facility] Other 06-20-2022 12:15-0400 Body weight 102.97 kg Vinnie Stewart Other [facility] Other 06-20-2022 12:15-0400 Diastolic blood pressure 47 mm[Hg] Vinnie Stewart Other [facility] Other 06-20-2022 12:15-0400 Respiratory rate 18 /min Vinnie Stewart Other [facility] Other 06-20-2022 12:15-0400 SaO2% (BldA) [Mass fraction] 94 % Vinnie Stewart Other [facility] Other 06-20-2022 12:15-0400 Systolic blood pressure 106 mm[Hg] Vinnie Stewart Other [facility] Other 06-06-2022 11:36-0400 Body temperature 98 [degF] DO Vinnie Stewart Work Phone: [facility] 03-02-2022 15:30-0400 Body height 170.18 cm Vinnie Stewart Other [facility] Other 03-02-2022 15:30-0400 Body mass index (BMI) [Ratio] 35.39 kg/m2 Vinnie Stewart Other [facility] Other 03-02-2022 15:30-0400 Body temperature 97.5 [degF] Vinnie Lucasley Other [facility] Other 03-02-2022 15:30-0400 Body weight 102.51 kg Vinnie Lucasley Other [facility] Other 03-02-2022 15:30-0400 Diastolic blood pressure 74 mm[Hg] Vinnie Stewart Other [facility] Other 03-02-2022 15:30-0400 Respiratory rate 20 /min Vinnie Lucasley Other [facility] Other 03-02-2022 15:30-0400 SaO2% (BldA) [Mass fraction] 94 % Vinnie Lucasley Other [facility] Other 03-02-2022 15:30-0400 Systolic blood pressure 114 mm[Hg] Vinnie Stewart Other [facility] Other 02-19-2022 12:05-0400 Body height 170.18 cm Ruthie Megan Other [facility] Other 02-19-2022 12:05-0400 Body mass index (BMI) [Ratio] 35.71 kg/m2 Ruthie Guzman Other [facility] Other 02-19-2022 12:05-0400 Body temperature 97.4 [degF] Ruthie Guzman Other [facility] Other 02-19-2022 12:05-0400 Body weight 103.42 kg Ruthie Guzman Other [facility] Other 02-19-2022 12:05-0400 Diastolic blood pressure 62 mm[Hg] Ruthie Guzman Other [facility] Other 02-19-2022 12:05-0400 Respiratory rate 20 /min Ruthie Guzman Other [facility] Other 02-19-2022 12:05-0400 SaO2% (BldA) [Mass fraction] 94 % Ruthie Guzman Other [facility] Other 02-19-2022 12:05-0400 Systolic blood pressure 116 mm[Hg] Ruthie Guzman Other [facility] Other 02-07-2022 16:00-0400 Body height 170.18 cm Balbir Ba Other [facility] Other 02-07-2022 16:00-0400 Body mass index (BMI) [Ratio] 36.02 kg/m2 Balbir Ba Other [facility] Other 02-07-2022 16:00-0400 Body temperature 97.3 [degF] Balbir Ba Other [facility] Other 02-07-2022 16:00-0400 Body weight 104.33 kg Balbir aB Other [facility] Other 02-07-2022 16:00-0400 Diastolic blood pressure 74 mm[Hg] Balbir Ba Other [facility] Other 02-07-2022 16:00-0400 SaO2% (BldA) [Mass fraction] 98 % Balbir Ba Other [facility] Other 02-07-2022 16:00-0400 Systolic blood pressure 136 mm[Hg] Balbir Ba Other [facility] Other 01-11-2022 14:00-0500 Body height 170.18 cm Brittnee Scally Other [facility] Other 01-11-2022 14:00-0500 Body mass index (BMI) [Ratio] 35.5 kg/m2 Brittnee Scally Other [facility] Other 01-11-2022 14:00-0500 Body weight 102.83 kg Brittnee Scally Other [facility] Other 01-11-2022 14:00-0500 Diastolic blood pressure 62 mm[Hg] Brittnee Scally Other [facility] Other 01-11-2022 14:00-0500 Respiratory rate 20 /min Brittnee Scally Other [facility] Other 01-11-2022 14:00-0500 SaO2% (BldA) [Mass fraction] 98 % Brittnee Scally Other [facility] Other 01-11-2022 14:00-0500 Systolic blood pressure 105 mm[Hg] Brittnee Scally Other [facility] Other 11-16-2021 14:00-0500 Body height 170.18 cm Brittnee Scally Other [facility] Other 11-16-2021 14:00-0500 Body mass index (BMI) [Ratio] 35.72 kg/m2 Brittnee Scally Other [facility] Other 11-16-2021 14:00-0500 Body weight 103.47 kg Brittnee Scally Other [facility] Other 11-16-2021 14:00-0500 Diastolic blood pressure 70 mm[Hg] Brittnee Scally Other [facility] Other 11-16-2021 14:00-0500 Respiratory rate 20 /min Brittnee Scally Other [facility] Other 11-16-2021 14:00-0500 SaO2% (BldA) [Mass fraction] 93 % Brittnee Scally Other [facility] Other 11-16-2021 14:00-0500 Systolic blood pressure 123 mm[Hg] Brittnee Scally Other [facility] Other 10-05-2021 14:45-0500 Body height 170.18 cm Brittnee Scally Other [facility] Other 10-05-2021 14:45-0500 Body mass index (BMI) [Ratio] 35.42 kg/m2 Brittnee Scally Other [facility] Other 10-05-2021 14:45-0500 Body weight 102.6 kg Brittnee Scally Other [facility] Other 10-05-2021 14:45-0500 Diastolic blood pressure 74 mm[Hg] Brittnee Scally Other [facility] Other 10-05-2021 14:45-0500 Respiratory rate 20 /min Brittnee Scally Other [facility] Other 10-05-2021 14:45-0500 SaO2% (BldA) [Mass fraction] 95 % Brittnee Spain Other [facility] Other 10-05-2021 14:45-0500 Systolic blood pressure 123 mm[Hg] Brittnee Spain Other [facility] Other 09-26-2021 12:00-0500 Body height 170.18 cm Vinnie Stewart Other [facility] Other 09-26-2021 12:00-0500 Body mass index (BMI) [Ratio] 35.39 kg/m2 Vinnie Stewart Other [facility] Other 09-26-2021 12:00-0500 Body temperature 98.1 [degF] Vinnie Stewart Other [facility] Other 09-26-2021 12:00-0500 Body weight 102.51 kg Vinnie Stewart Other [facility] Other 09-26-2021 12:00-0500 Diastolic blood pressure 72 mm[Hg] Vinnie Stewart Other [facility] Other 09-26-2021 12:00-0500 Respiratory rate 20 /min Vinnie Stewart Other [facility] Other 09-26-2021 12:00-0500 SaO2% (BldA) [Mass fraction] 95 % Vinnie Stewart Other [facility] Other 09-26-2021 12:00-0500 Systolic blood pressure 118 mm[Hg] Vinnie Stewart Other [facility] [employer] Other 12-18-2019 10:11-0500 BMI (Body Mass Index) 35.2 kg/m2 [facility] 12-18-2019 10:11-0500 Body [facility] 108[facility]4 [facility] 12-18-2019 10:110500 Height 175.26 [facility] 12-18-2019 10:01-0500 Body Temperature 97.8 [degF] [facility] 12-18-2019 10:01-0500 BP Diastolic 80 mm[Hg] [facility] 12-18-2019 10:01-0500 BP Systolic 126 mm[Hg] [facility] 12-18-2019 10:01-0500 Pulse (Heart Rate) 108 /min [facility] 12-18-2019 10:01-0500 Respiratory Rate 16 /min [facility] Encounters Encounter Date Encounter Type Care Provider Facility Start: 02-05-2024 Non-patient / Non-visit DO Vinnie Stewart Work Phone: [facility] Work Phone: Start: 01-30-2024 Non-patient / Non-visit DO Vinnie Stewart Work Phone: [facility] Work Phone: Start: 01-30-2024 Non-patient / Non-visit DO Vinnie Stewart Work Phone: [facility] Work Phone: Start: 01-29-2024 Non-patient / Non-visit DO Vinnie Stewart Work Phone: [facility] Work Phone: Start: 01-29-2024 Non-patient / Non-visit DO Vinnie Stewart Work Phone: [facility] Work Phone: Start: 01-28-2024 End: 02-05-2024 Evaluation and management of inpatient Farhan Hudson Facility:[facility] Start: 01-28-2024 Non-patient / Non-visit DO Vinnie Stewart Work Phone: [facility] Work Phone: Start: 01-28-2024 End: 02-05-2024 Evaluation and management of inpatient DO Vinnie Stewart Work Phone: [facility] [place] [facility] Work Phone: Start: 01-25-2024 End: 01-25-2024 ambulatory BRYCE SHIRLEY [facility] Start: 01-17-2024 End: 01-17-2024 ambulatory Jorge Saucedasylwia Facility:[facility] Start: 01-17-2024 End: 01-17-2024 Departed Referred DO Vinnie Stewart Work Phone: [facility] Ctr-[facility] Start: 12-27-2023 End: 12-27-2023 ambulatory Vinine Stewart Other [facility] Other Start: 12-27-2023 Telephone encounter Vinnie Palomino [facility] Start: 12-20-2023 End: 12-20-2023 ambulatory Vinnie Stewart Other [facility] Other Start: 12-20-2023 Telephone encounter Vinnie Palomino [facility] [place] Start: 12-18-2023 End: 12-19-2023 ambulatory VINNIE STEWART [facility] Start: 12-17-2023 End: 12-17-2023 ambulatory Vinnie Stewart Other [facility] Other Start: 12-17-2023 Telephone encounter [facility] Start: 12-11-2023 Non-patient / Non-visit DO Vinnie Stewart Work Phone: [facility] [employer] Work Phone: Start: 12-10-2023 End: 12-11-2023 ambulatory Nicolette Manzano Facility:[facility] Start: 12-10-2023 End: 12-10-2023 Discharged Recurring DO Vinnie Stewart Work Phone: [facility] Work Phone: Start: 12-10-2023 End: 12-10-2023 ambulatory DO Vinnie Stewart Work Phone: [facility] [employer] Other Start: 12-10-2023 Nursing evaluation o f patient and report Brittnee Spain [facility] Start: 11-26-2023 End: 11-26-2023 ambulatory BRYCE SHIRLEY [facility] Start: 11-22-2023 End: 11-22-2023 ambulatory Vinnie Stewart Other [facility] Other Start: 11-22-2023 Office outpatient visit 15 minutes Vinnie FRANCISCO [facility] Start: 11-22-2023 Telephone encounter Vinnie Palomino [facility] Start: 11-22-2023 End: 11-22-2023 Patient encounter procedure DO Vinnie Stewart Work Phone: [facility] [place] Work Phone: Start: 11-21-2023 End: 11-21-2023 ambulatory Vinnie Stewart Other [facility] Other Start: 11-21-2023 Telephone encounter Vinnie Palomino [facility] Start: 11-15-2023 End: 11-15-2023 ambulatory Simba Kaufman Other [facility] Other Start: 11-15-2023 Office outpatient visit 25 minutes Simba Kaufman [facility] Start: 11-15-2023 End: 11-15-2023 Patient encounter procedure DO Vinnie Stewart Work Phone: [facility] Ne[facility] [place] Work Phone: Start: 11-13-2023 (DM) Diabetes Brittnee Remalouisa [facility] Start: 11-13-2023 End: 11-13-2023 ambulatory Brittnee Spain Other [facility] Other Start: 11-13-2023 Telephone encounter Brittnee Remalouisa Matt ju[facility] Start: 11-13-2023 End: 11-13-2023 Patient encounter procedure DO [facility] Stewart [facility] Start: 11-06-2023 End: 11-06-2023 ambulatory Vinnie Stewart Other [facility] Other Start: 11-06-2023 Telephone encounter Vinnie Palomino [facility] Start: 11-01-2023 End: 11-01-2023 ambulatory Brittnee Spain Other [facility] Other Start: 11-01-2023 Telephone encounter Brittnee Remalouisa [facility] Start: 10-25-2023 End: 10-25-2023 ambulatory Vinnie Stewart Other [facility] Other Start: 10-25-2023 Telephone encounter Vinnie Palomino [facility] Start: 10-22-2023 End: 10-22-2023 ambulatory Brittnee Spain Other [facility] Other Start: 10-22-2023 Telephone encounter Brittnee Scallouisa [facility] Start: 10-19-2023 End: 10-19-2023 ambulatory Vinnie Stewart Other [facility] Other Start: 10-19-2023 Telephone encounter Vinnie [facility]omino [facility] Start: 10-08-2023 End: 10-08-2023 ambulatory Brittnee Spain Other [facility] Other Start: 10-08-2023 Nursing evaluation o f patient and report Brittnee Spain [facility] Start: 10-08-2023 End: 10-08-2023 Patient encounter procedure DO Vinnie Stewart Work Phone: [facility] Work Phone: Start: 10-04-2023 (Acute) Acute Visit Brittnee harrington [facility] Start: 10-04-2023 End: 10-04-2023 ambulatory Brittnee Spain Other [facility] Other Start: 10-03-2023 End: 10-03-2023 ambulatory Brittnee Spain Other [facility] Other Start: 10-03-2023 Telephone encounter Brittnee merritt [facility] Start: 09-21-2023 End: 09-21-2023 ambulatory [facility] Start: 09-20-2023 End: 09-20-2023 ambulatory Vinnie Stewart Other [facility] Other Start: 09-20-2023 Telephone encounter Vinnie [facility]omino [facility] Start: 09-18-2023 (DM) Diabetes Brittnee Segovia [facility] Start: 09-18-2023 End: 09-18-2023 ambulatory Vinnie Stewart Other [facility] Other Start: 09-18-2023 Telephone encounter Vinnie Palomino [facility] Start: 09-17-2023 End: 09-17-2023 ambulatory Vinnie Stewart Other [facility] Other Start: 09-17-2023 Telephone encounter Vinnie [facility]omino [facility] Start: 08-31-2023 End: 08-31-2023 ambulatory Brittnee Remalouisa Other [facility] Other Start: 08-31-2023 Telephone encounter Brittnee Remalouisa [facility] Start: 08-30-2023 End: 08-30-2023 ambulatory UNKNOWN PROVIDER [facility] Other Start: 08-30-2023 Telephone encounter Vinnie Palomino [facility] Start: 08-23-2023 End: 08-23-2023 ambulatory MASSIMO SWAN [facility] [address] Other Start: 08-23-2023 Telephone encounter Vinnie Palomino [facility] Start: 08-20-2023 End: 08-20-2023 ambulatory Vinnie Stewart Other [facility] Other Start: 08-20-2023 Telephone encounter Vinnie Palomino [facility] Start: 08-15-2023 Telephone encounter Vinnie Palomino [facility] Start: 08-15-2023 End: 08-15-2023 ambulatory BRYCE WATSON [facility] Other Start: 08-03-2023 End: 08-03-2023 ambulatory Vinnie Stewart Other [facility] Other Start: 08-03-2023 Telephone encounter Vinnie Palomino [facility] Start: 07-30-2023 End: 07-30-2023 ambulatory Vinnie Stewart Other [facility] Other Start: 07-30-2023 Telephone encounter Vinnie ROSALES [facility] [place] Start: 07-27-2023 End: 07-27-2023 ambulatory Vinnie Stewart Other [facility] Other Start: 07-27-2023 Telephone encounter Vinnie ROSALES [facility] [place] Start: 07-24-2023 End: 07-24-2023 ambulatory [facility] Start: 07-20-2023 End: 07-20-2023 ambulatory Vinnie Stewart Other [facility] Other Start: 07-20-2023 Telephone encounter Vinnie ROASLES [facility] Start: 07-19-2023 End: 07-19-2023 ambulatory Vinnie Stewart Other [facility] Other Start: 07-19-2023 Telephone encounter Vinnie ROSALES [facility] Start: 07-16-2023 End: 07-16-2023 ambulatory Vinnie Stewart Other [facility] Other Start: 07-16-2023 Telephone encounter Vinnie ROSALES [facility] Start: 07-12-2023 End: 07-12-2023 ambulatory Vinnie Stewart Other [facility] Other Start: 07-12-2023 Telephone encounter Vinnie ROSALES [facility] Start: 06-29-2023 (DM) Diabetes Brittneejorge l yee [facility] Start: 06-29-2023 End: 06-29-2023 ambulatory Vinnie Stewart Other [facility] Other Start: 06-29-2023 Office outpatient visit 15 minutes Vinnie FRANCISCO [facility] [place] Start: 06-18-2023 End: 06-18-2023 ambulatory Vinnie Stewart Other [facility] Other Start: 06-18-2023 Office outpatient visit 15 minutes Vinnie FRANCISCO [facility] [place] Start: 06-15-2023 End: 06-15-2023 ambulatory Vinnie Stewart Other [facility] Other Start: 06-15-2023 Telephone encounter Vinnie Palomino [facility] [place] Start: 06-05-2023 End: 06-06-2023 ambulatory [facility] Start: 05-31-2023 End: 05-31-2023 ambulatory Vinnie Stewart Other [facility] Other Start: 05-31-2023 Telephone encounter Vinnie Palomino [facility] [place] Start: 05-18-2023 End: 05-18-2023 ambulatory Vinnie Stewart Other [facility] Other Start: 05-18-2023 Telephone encounter Vinnie Palomino [facility] [place] Start: 05-08-2023 End: 05-08-2023 ambulatory Tondra Mapus Other [facility] Other Start: 05-08-2023 Telephone encounter Tondra Mapus [facility] Start: 05-02-2023 End: 05-02-2023 ambulatory Brittnee Spain Other [facility] Other Start: 05-02-2023 Nursing evaluation o f patient and report Brittnee Spain [facility] Start: 04-20-2023 End: 04-20-2023 ambulatory Vinnie Stewart Other [facility] Other Start: 04-20-2023 Telephone encounter Vinnie Palomino [facility] Start: 04-19-2023 End: 04-19-2023 ambulatory Simba Kaufman Other [facility] Other Start: 04-19-2023 Office outpatient visit 15 minutes Gisselle Dickey [facility] Start: 04-19-2023 Office outpatient visit 25 minutes Simba Jac [facility] Start: 04-18-2023 End: 04-18-2023 ambulatory Vinnie Stewart Other [facility] Other Start: 04-18-2023 Telephone encounter Vinnie Palomino [facility] [place] Start: 04-17-2023 Telephone encounter Vinnie Palomino [facility] Start: 04-17-2023 End: 04-17-2023 ambulatory JORGE Goodman [facility] Facility: Start: 04-13-2023 End: 04-13-2023 ambulatory Simba Jac Other [facility] Other Start: 04-13-2023 Telephone encounter Simba Jac [facility] Start: 04-11-2023 End: 04-12-2023 ambulatory SIMBA JAC Facility: Start: 04-02-2023 End: 04-03-2023 ambulatory [facility] [address] Other Start: 04-02-2023 Telephone encounter Vinnie Palomino [facility] [place] Start: 03-27-2023 End: 03-28-[address] DEEPAK FOURNIER . [facility] Other Start: 03-27-2023 Telephone encounter Brittnee harrington [facility] Start: 03-21-2023 End: 03-21-2023 ambulatory DAHIANA BELCHER [facility] Other Start: 03-21-2023 Office outpatient visit 15 minutes Vinnie FRANCISCO [facility] [place] Start: 03-19-2023 Telephone encounter Vinnie Palomino [facility] Start: 03-19-2023 End: 04-18-2023 ambulatory SHAIKH Jorge L YU [facility] Other Start: 02-27-2023 End: 02-27-2023 ambulatory Vinnie Stewart Other [facility] Other Start: 02-27-2023 Telephone encounter Vinnie Hodges Start: 02-21-2023 End: 02-21-2023 ambulatory Vinnie Stewart Facility:[facility] Start: 02-21-2023 Office outpatient visit 15 minutes Vinnie Hodges Start: 02-21-2023 End: 02-21-2023 ambulatory DO Vinnie Noreen Osvaldo Work Phone: [facility] Work Phone: Start: 02-21-2023 End: 02-21-2023 Patient encounter procedure DO Vinnie Stewart Work Phone: [facility] [place] Work Phone: Start: 02-20-2023 End: 02-20-2023 ambulatory Vinnie Stewart Other [facility] Other Start: 02-20-2023 Telephone encounter Vinnie Hodges Start: 02-19-2023 End: 03-16-2023 ambulatory SHAIKH Jorge L YU Facility: Start: 02-13-2023 End: 02-14-2023 Evaluation and management of inpatient DO Vinnie Stewart Work Phone: [facility] [place] [facility] Work Phone: Start: 02-13-2023 Registered Recurring DO Vinnie Stewart Work Phone: [facility] Work Phone: Start: 02-13-2023 End: 02-13-2023 ambulatory Vinnie Stewart Other [facility] Other Start: 02-13-2023 Telephone encounter Vinnie Hodges Start: 02-09-2023 End: 02-09-2023 ambulatory Vinnie Stewart Other [facility] Other Start: 02-09-2023 Office outpatient visit 15 minutes Vinnie Stewart [facility] [place] Start: 02-05-2023 End: 02-05-2023 ambulatory Vinnie Stewart Other [facility] Other Start: 02-05-2023 Telephone encounter Vinnie ROSALES [facility] [place] Start: 01-30-2023 End: 01-30-2023 ambulatory Vinnie Stewart Other [facility] Other Start: 01-30-2023 Telephone encounter Vinnie Palomino [facility] [place] Start: 01-29-2023 End: 01-30-2023 ambulatory [facility] Facility:[facility] Start: 01-29-2023 End: 01-29-2023 ambulatory [facility] Start: 01-17-2023 Office outpatient visit 15 minutes Vinnie Stewart [facility] [place] Start: 01-17-2023 End: 02-16-2023 ambulatory SHAIKH Jorge L VEGAANKUSH [facility] Other Start: 01-16-2023 End: 01-16-2023 ambulatory Vinnie Stewart Other [facility] Other Start: 01-16-2023 Telephone encounter Vinnie Palomino [facility] [place] Start: 01-05-2023 End: 01-11-2023 Evaluation and management of inpatient NIK BUNN . Facility:[facility] Start: 01-02-2023 End: 01-02-2023 ambulatory CANDELARIA Olson Facility:[facility] Start: 01-02-2023 End: 01-03-2023 ambulatory KODI LISA Facility:[facility] Start: 12-26-2022 End: 12-27-2022 ambulatory KODI LISA Facility:[facility] Start: 12-22-2022 End: 12-22-2022 ambulatory Vinnie Stewart Other [facility] Other Start: 12-22-2022 Telephone encounter Vinnie Palomino [facility] [place] Start: 12-20-2022 End: 01-17-2023 ambulatory SHAIKH Jorge L YU Facility: Start: 12-19-2022 End: 12-19-2022 ambulatory Vinnie Stewart Other [facility] Other Start: 12-19-2022 Telephone encounter Vinnie Palomino [facility] [place] Start: 12-14-2022 End: 12-14-2022 ambulatory Vinnie Stewart Other [facility] Other Start: 12-14-2022 Telephone encounter Vinnie Palomino [facility] [place] Start: 12-12-2022 End: 12-12-2022 ambulatory Brittnee Spain Other [facility] Other Start: 12-12-2022 Nursing evaluation o f patient and report Brittnee Spain [facility] Start: 12-11-2022 End: 12-11-2022 ambulatory Vinnie Stewart Other [facility] Other Start: 12-11-2022 Telephone encounter Vinnie Palomino [facility] [place] Start: 12-04-2022 End: 12-04-2022 ambulatory DO Vinnie Stewart Work Phone: [facility] Work Phone: Start: 12-04-2022 End: 12-04-2022 Registered Recurring DO Vinnie Stewart Work Phone: [facility] Work Phone: Start: 11-29-2022 End: 11-29-2022 ambulatory Vinnie Stewart Other [facility] Other Start: 11-29-2022 Telephone encounter Vinnie Palomino [facility] [place] Start: 11-27-2022 End: 11-27-2022 ambulatory Vinnie Stewart Other [facility] Other Start: 11-27-2022 Telephone encounter Vinnie Palomino [facility] [place] Start: 11-20-2022 End: 12-20-2022 ambulatory BROWN Jorge L GIGI Facility:[facility] Start: 11-14-2022 End: 11-15-[address] [facility] [employer] Other Start: 11-14-2022 Telephone encounter Vinnie Palomino [facility] [place] Start: 11-07-2022 (DM) Diabetes Brittnee Segovia [facility] Start: 11-07-2022 End: 11-07-2022 ambulatory Brittnee Spain Other [facility] Other Start: 11-07-2022 Registered Recurring DO Vinnie Stewart Work Phone: [facility] Work Phone: Start: 11-01-2022 End: 11-01-2022 ambulatory Brittnee Spain Other [facility] [address] Other Start: 11-01-2022 Telephone encounter Brittnee merritts [facility] Start: 10-31-2022 End: 10-31-2022 ambulatory Vinnie Stewart Other [facility] Other Start: 10-31-2022 Telephone encounter Vinnie Palomino [facility] [place] Start: 10-27-2022 Telephone encounter Gisselle FRANCISCO [employer] Start: 10-27-2022 End: 10-28-2022 ambulatory BRYCE WATSON [facility] [employer] Other Start: 10-19-2022 End: 11-19-2022 ambulatory BROWN Jorge L GIGI Facility:[facility] Start: 10-11-2022 End: 10-11-2022 ambulatory Brittnee Spain Other [facility] Other Start: 10-11-2022 Telephone encounter Brittnee merrittandreina [facility] Start: 10-09-2022 End: 10-09-2022 ambulatory Vinnie Stewart Other [facility] Other Start: 10-09-2022 Telephone encounter Vinnie Palomino [facility] Start: 10-05-2022 End: 10-05-2022 ambulatory Vinnie Stewart Other [employer] Other Start: 10-05-2022 Telephone encounter Vinnie Palomino [facility] Start: 10-03-2022 End: 10-03-[address] BIANCA STUART Facility:[facility] Start: 09-28-2022 End: 09-28-2022 ambulatory Simba Jac Other [facility] Other Start: 09-28-2022 Office outpatient visit 15 minutes Gisselle Dickey [facility] Start: 09-28-2022 Office outpatient visit 25 minutes Simba Jac [facility] Start: 09-27-2022 End: 09-27-2022 ambulatory Vinnie Stewart Other [facility] Other Start: 09-27-2022 Telephone encounter Vinnie Palomino [facility] Start: 09-19-2022 End: 10-18-2022 ambulatory SHAIKH Jorge L YU Facility:[facility] Start: 09-18-2022 Telephone encounter Brittnee Matt shain[facility] Start: 09-18-2022 End: 09-19-2022 ambulatory SIMBA JAC [facility] Other Start: 09-13-2022 End: 09-13-2022 ambulatory Vinnie Stewart Other [facility] Other Start: 09-13-2022 Office outpatient visit 15 minutes Vinnie FRANCISCO [facility] [place] Start: 09-08-2022 End: 09-08-2022 ambulatory Vinnie Stewart Other [facility] Other Start: 09-08-2022 Telephone encounter Vinnie Palomino [facility] [place] Start: 08-31-2022 End: 08-31-2022 ambulatory Brittnee Spain Other [facility] Other Start: 08-31-2022 Telephone encounter Brittnee merritts [facility] Start: 08-21-2022 End: 08-21-2022 ambulatory Vinnie Stewart Other [facility] Other Start: 08-21-2022 Telephone encounter Vinnie Palomino [facility] Start: 08-20-2022 End: 09-18-2022 ambulatory SHAIKH Jorge L YU Facility:[facility] Start: 08-02-2022 End: 08-02-2022 ambulatory Vinnie Stewart Other [facility] Other Start: 08-02-2022 Telephone encounter Vinnie Palomino [facility] [place] Start: 07-31-2022 (DM) Diabetes Brittnee Segovia [facility] Start: 07-31-2022 End: 07-31-2022 ambulatory Brittnee Spain Other [facility] Other Start: 07-20-2022 End: 08-19-2022 ambulatory BROWN H FAWWAD Facility:[facility] Start: 07-19-2022 End: 07-20-2022 ambulatory MASSIMO SWAN Facility:[facility] Start: 07-18-2022 End: 07-18-2022 ambulatory Brittnee Spain Other [facility] Other Start: 07-18-2022 Telephone encounter Brittnee harrington [facility] Start: 07-11-2022 End: 07-11-2022 ambulatory Vinnie Stewart Other [facility] Other Start: 07-11-2022 Telephone encounter Vinnie Palomino [facility] [place] Start: 06-27-2022 End: 06-27-2022 ambulatory Vinnie Stewart Other [facility] Other Start: 06-27-2022 Telephone encounter Vinnie Palomino [facility] [place] Start: 06-23-2022 End: 06-24-2022 ambulatory [facility] Facility:[facility] Start: 06-20-2022 End: 06-20-2022 ambulatory Vinnie Stewart Other [facility] Other Start: 06-20-2022 Office outpatient visit 15 minutes Vinnie FRANCISCO [facility] [place] Start: 06-19-2022 Telephone encounter Brittnee harrington [facility] Start: 06-19-2022 End: 07-19-2022 ambulatory SHAIKH Jorge L YU [facility] Other Start: 06-13-2022 End: 06-16-2022 Evaluation and management of inpatient SHAIKH Jorge L YU Facility:H1 Start: 06-06-2022 End: 06-06-2022 ambulatory Vinnie Stewart Other [facility] Other Start: 06-06-2022 Telephone encounter [facility] Start: 06-01-2022 End: 06-02-2022 ambulatory [facility] Facility:H1 Start: 05-30-2022 End: 05-30-2022 ambulatory Vinnie Stewart Other [facility] Other Start: 05-30-2022 Telephone encounter [facility] [place] Start: 05-25-2022 End: 05-26-2022 ambulatory JORGE Goodman [facility] Facility:H1 Start: 05-19-2022 End: 06-16-2022 ambulatory SHAIKH Jorge L YU Facility:H1 Start: 05-18-2022 End: 05-19-2022 ambulatory JORGE Goodman [facility] Facility:H1 Start: 05-17-2022 End: 05-17-2022 ambulatory Brittnee Spain Other [facility] Other Start: 05-17-2022 Telephone encounter Brittnee Matt [facility] Start: 05-16-2022 End: 05-16-2022 ambulatory Vinnie Stewrat Other [facility] Other Start: 05-16-2022 Telephone encounter [facility] Start: 05-08-2022 End: 05-10-2022 ambulatory VINNIE STEWART Facility:H1 Start: 05-04-2022 End: 05-04-2022 ambulatory Vinnie Stewart Other [facility] Other Start: 05-04-2022 Telephone encounter [facility]innie [facility] Start: 04-28-2022 End: 05-02-2022 Evaluation and management of inpatient SHAIKH Jorge L YU Facility:H1 Start: 04-26-2022 End: 04-26-2022 ambulatory Brittnee Spain Other [facility] Other Start: 04-26-2022 Telephone encounter Brittnee Matt [facility] Start: 04-25-2022 End: 04-25-2022 ambulatory Vinnie Stewart Other [facility] Other Start: 04-25-2022 Telephone encounter [facility] Start: 04-24-2022 End: 04-24-2022 ambulatory Vinnie Stewart Other [facility] Other Start: 04-24-2022 Telephone encounter Vinnie ROSALES [facility] [place] Start: 04-10-2022 End: 04-10-2022 ambulatory Brittnee Remalouisa Other [facility] Other Start: 04-10-2022 Telephone encounter Brittnee Remalouisa [facility] Start: 03-21-2022 End: 03-21-2022 ambulatory Vinnie Stewart Other [facility] Other Start: 03-21-2022 Telephone encounter Vinnie ROSALES [facility] [place] Start: 03-17-2022 End: 03-17-2022 ambulatory Vinnie Stewart Other [facility] Other Start: 03-17-2022 Telephone encounter Vinnie ROSALES [facility] [place] Start: 03-03-2022 End: 03-03-2022 ambulatory Vinnie Stewart Other [facility] Other Start: 03-03-2022 Telephone encounter Vinnie ROSALES [facility] [place] Start: 03-02-2022 End: 03-02-2022 ambulatory Vinnie Stewart Other [facility] Other Start: 03-02-2022 Office outpatient visit 15 minutes Vinnie Stewart [facility] [place] Start: 02-20-2022 End: 02-20-2022 ambulatory Vinnie Stewart Other [facility] Other Start: 02-20-2022 Telephone encounter Vinnie ROSALES [facility] [place] Start: 02-19-2022 End: 02-19-2022 ambulatory Ruthie Guzman Other [facility] Other Start: 02-19-2022 Office outpatient visit 15 minutes Ruthie Guzman [facility] Start: 02-19-2022 Telephone encounter [facility] Start: 02-10-2022 End: 02-10-2022 ambulatory Vinnie Stewart Other [facility] Other Start: 02-10-2022 Telephone encounter [facility] Start: 02-07-2022 End: 02-07-2022 ambulatory Balbir Ba Other [facility] Other Start: 02-07-2022 Office outpatient visit 25 minutes Balbir Ba [facility] Start: 02-06-2022 End: 02-06-2022 ambulatory Vinnie Stewart Other [facility] Other Start: 02-06-2022 Telephone encounter [facility] Start: 01-27-2022 End: 01-27-2022 ambulatory Vinnie Stewart Other [facility] Other Start: 01-27-2022 Telephone encounter [facility] Start: 01-26-2022 End: 01-26-2022 ambulatory Vinnie Stewart Other [facility] Other Start: 01-26-2022 Telephone encounter [facility] [place] Start: 01-11-2022 (DM) Diabetes [facility] Start: 01-11-2022 End: 01-11-2022 ambulatory Brittnee Spain Other [facility] Other Start: 01-10-2022 End: 01-10-2022 ambulatory Vinnie Stewart Other [facility] Other Start: 01-10-2022 Telephone encounter Vinnie [facility] Start: 01-05-2022 End: 01-05-2022 ambulatory Brittnee Spain Other [facility] Other Start: 01-05-2022 Telephone encounter Brittnee Matt [facility] Start: 12-26-2021 End: 12-26-2021 ambulatory Vinnie Stewart Other [facility] Other Start: 12-26-2021 Telephone encounter [facility] Start: 12-20-2021 End: 12-20-2021 ambulatory Brittneejorge l Spain Other [facility] Other Start: 12-20-2021 Telephone encounter Brittnee Matt [facility] Start: 12-09-2021 End: 12-09-2021 ambulatory Vinnie Stewart Other [facility] Other Start: 12-09-2021 Telephone encounter Vinnie [facility] Start: 11-30-2021 End: 11-30-2021 ambulatory Vinnie Stewart Other [facility] Other Start: 11-30-2021 Telephone encounter [facility] Start: 11-29-2021 End: 11-29-2021 ambulatory Brittnee Spain Other [facility] Other Start: 11-29-2021 Telephone encounter Brittnee [facility] Start: 11-28-2021 End: 11-28-2021 ambulatory Brittnee Spain Other [facility] Other Start: 11-28-2021 Telephone encounter Vinnie [facility] Start: 11-21-2021 End: 11-21-2021 ambulatory Brittnee Spain Other [facility] Other Start: 11-21-2021 Telephone encounter Brittnee Spain [facility] Start: 11-17-2021 End: 11-17-2021 ambulatory Vinnie Stewart Other [facility] Other Start: 11-17-2021 Telephone encounter Vinnie Palomino [facility] [place] Start: 11-16-2021 (DM) Diabetes Brittnee Scally [facility] Start: 11-16-2021 End: 11-16-2021 ambulatory Brittnee Spain Other [facility] Other Start: 10-11-2021 End: 10-11-2021 ambulatory Vinnie Stewart Other [facility] Other Start: 10-11-2021 Telephone encounter Vinnie [facility] Start: 10-10-2021 End: 10-10-2021 ambulatory Vinnie Stewart Other [facility] Other Start: 10-10-2021 Telephone encounter Vinnie Palomino [facility] [place] Start: 10-05-2021 (DM) Diabetes Brittnee Judit [facility] Start: 10-05-2021 End: 10-05-2021 ambulatory Brittnee Spain Other [facility] Other Start: 09-26-2021 End: 09-26-2021 ambulatory Vinnie Stewart Other [facility] Other Start: 09-26-2021 Office outpatient visit 15 minutes Vinnie FRANCISCO [facility] Start: 09-16-2021 End: 09-16-2021 ambulatory Brittnee Spain Other [facility] Other Start: 09-16-2021 Telephone encounter Brittnee Scally [facility] Start: 04-12-2021 End: 04-17-2021 Evaluation and management of inpatient [place] Facility:[facility] Start: 12-16-2020 End: 12-16-2020 Patient encounter procedure Vinnie Stewart -[facility] Start: 12-06-2020 Registered Recurring Vinnie Stewart Diabetes [facility] Start: 12-18-2019 End: 12-18-2019 Discharged Recurring [facility] Start: 09-23-2019 End: 09-23-2019 Patient encounter procedure Vinnie Stewart -[facility] Start: 02-24-2019 End: 02-24-2019 Admission to day surgery Vinnie Stewart [facility] Procedures Date Procedure Procedure Detail Performing Clinician Start: 02-04-2024 IR Angiogram w/TLA/Stent Left Leg (Left) DO Vinnie Stewart Work Phone: Start: 01-31-2024 Catheterization DO Vinnie Lucasley Work Phone: Start: 01-30-2024 Pulse volume recorder pneumoplethysmography DO Vinnie Stewart Work Phone: Start: 01-29-2024 Aerobic microbial culture DO Vinnie Clark lidya Work Phone: Start: 01-29-2024 Urine culture DO Vinnie Stewart Work Phone: Start: 02-13-2023 CT of head without contrast DO Vinnie Rivera crispinlidya Work Phone: Start: 02-13-2023 Plain chest X-ray [...] Date Care Activity Detail Author Start: 02-05-2024 [facility] Start: 02-04-2024 Physical therapy procedure [facility] Start: 01-30-2024 Referral to vascular surgeon [facility] Start: 01-29-2024 Referral to vascular surgeon [facility] Start: 01-29-2024 Referral to grain combine driver [facility] Start: 01-28-2024 Referral to infectio us diseases physician [facility] Start: 01-28-2024 Hospital admission [facility] Start: 01-28-2024 Referral to manager quantitative [facility] Start: 02-23-2023 [facility] Start: 02-22-2023 [facility] Start: 02-21-2023 [facility] Start: 02-20-2023 [facility] Start: 02-19-2023 [facility] Start: 02-18-2023 Blood chemistry [facility] Start: 02-18-2023 [facility] Start: 02-17-2023 Blood chemistry [facility] Start: 02-17-2023 [facility] Start: 02-16-2023 Blood chemistry [facility] Start: 02-16-2023 [facility] Start: 02-15-2023 Blood chemistry [facility] Start: 02-15-2023 [facility] Start: 02-14-2023 Blood chemistry [facility] Start: 02-14-2023 End: 02-14-2023 [facility] Start: 02-14-2023 [facility] Start: 02-13-2023 Hospital admission [facility] Start: 02-13-2023 Physical therapy procedure [facility] Start: 02-13-2023 Referral to occupati onal therapist [facility] Start: 02-13-2023 [facility] Patient Education [facility] Work Phone: Patient referral [facility] Work Phone: [facility] Immunizations Immunization Date Immunization Notes Care Provider Marilyn ramos 08-23-2021 COVID-19 Vaccine Pfizer - Documentation Purposes Only Vinnie Stewart Other [facility] 08-10-2021 influenza, seasonal, injectable Vinnie Stewart Other [facility] 01-14-2021 COVID-19 Vaccine Pfizer - Documentation Purposes Only Vinnie Stewart Other [facility] 01-04-2021 COVID-19 Vaccine Moderna - Documentation Purposes Only Vinnie Stewart Other [facility] 12-24-2020 COVID-19 Vaccine Pfizer - Documentation Purposes Only Vinnie Stewart Other [facility] 10-19-2020 pneumococcal conjugate vaccine, 13 valent Vinnie Stewart Other [facility] 08-16-2018 zoster vaccine recombinant Vinnie Stewart Other [facility] 08-23-2016 pneumococcal polysaccharide vaccine, 23 valent Vinnie Stewart Other [facility] 08-21-2016 influenza, injectable, quadrivalent, preservative free DO Vinnie Stewart Work Phone: [facility] 08-21-2016 influenza, injectable, quadrivalent, contains preservative Vinnie Stewart Other [facility] [employer] Other NEGATED: Highlighted row has not occurred! 5 influenza, injectable, quadrivalent, contains preservative Patient Objection Vinnie Stewart Other [facility] [employer] Other Payers Date Payer Category Payer Self-pay [id number] 1960 Medicaid [id number] 1959 Unknown [id number] 1955 Unknown [id number] 2.16.8 40.1.855761.3.579.2.647 1954 Unknown [id number] 2.16.84 0.1.813845.3.579.2.593 1954 Unknown [id number] 2.16.84 0.1.081622.3.579.2.593 1954 Unknown [id number] 2.16.84 0.1.416290.3.579.2.593 1954 Unknown [id number] 2.16.84 0.1.262269.3.579.2.593 1954 Unknown [id number] 2.16.84 0.1.690134.3.579.2.593 1954 Unknown [id number] 2.16.84 0.1.634490.3.579.2.593 1954 Unknown [id number] 2.16.84 0.1.238241.3.579.2.593 1954 Unknown [id number] 2.16.84 0.1.030019.3.579.2.593 1954 Unknown [id number] 2.16.84 0.1.359645.3.579.2.593 1954 Unknown [id number] 2.16.84 0.1.524009.3.579.2.593 1954 Unknown [id number] 2.16.84 0.1.595843.3.579.2.593 1954 Unknown [id number] 2.16.84 0.1.980475.3.579.2.593 1954 Unknown [id number] 2.16.84 0.1.019451.3.579.2.593 1954 Unknown [id number] 2.16.84 0.1.851326.3.579.2.593 1954 Unknown [id number] 2.16.84 0.1.969125.3.579.2.593 1954 Unknown [id number] 2.16.84 0.1.466106.3.579.2.593 1954 Unknown [id number] 2.16.84 0.1.546896.3.579.2.593 1954 Unknown [id number] 2.16.84 0.1.082131.3.579.2.593 1954 Unknown [id number] 2.16.84 0.1.615919.3.579.2.593 1954 Unknown [id number] 2.16.84 0.1.109735.3.579.2.593 1954 Unknown [id number] 2.16.84 0.1.264213.3.579.2.593 1954 Unknown [id number] 2.16.84 0.1.994063.3.579.2.593 1954 Unknown [id number] 2.16.84 0.1.346881.3.579.2.593 1954 Unknown [id number] 2.16.84 0.1.907562.3.579.2.593 1954 Unknown [id number] 2.16.84 0.1.054780.3.579.2.593 1954 Unknown [id number] 2.16.84 0.1.424473.3.579.2.593 1954 Unknown [id number] 2.16.84 0.1.902056.3.579.2.593 1954 Unknown [id number] 2.16.84 0.1.769619.3.579.2.593 1954 Unknown [id number] 2.16.84 0.1.943435.3.579.2.593 1954 Unknown [id number] 2.16.84 0.1.159450.3.579.2.593 1954 Unknown [id number] 2.16.84 0.1.650770.3.579.2.593 1954 Unknown [id number] 2.16.84 0.1.370716.3.579.2.593 1954 Unknown [id number] 2.16.84 0.1.861341.3.579.2.593 1954 Unknown [id number] 2.16. 840.1.177452.3.579.2.732 1954 Unknown [id number] 2.16.8 40.1.088442.3.579.2.1286 Medicare [id number] Unknown [id number] Unknown [id number] 2.16.8 40.1.212916.3.579.2.531 Unknown [id number] 2.16.8 40.1.056344.3.579.2.531 Unknown [id number] 2.16.8 40.1.311623.3.579.2.531 Unknown [id number] 2.16.8 40.1.365592.3.579.2.531 Social History Date Type Detail Facility Start: 12-18-2019 End: 01-30-2024 Tobacco smoking status NEIS Ex-smoker (finding) [facility] Start: 1955 Sex Assigned At Male F [facility] Sex Assigned At Sex Assigned At Bir th [facility] [address] Other Medical Equipment Procedure Code Equipment Code Equipment Origin al Text Equipment Identifier Dates Insertion, catheter, dialysis, tunneled, with imaging guidance Double-lumen haemodialysis catheter, implantable [id number] [facility] Start: 01-31-2024 Pen Seymour 32G X 4 MM Start: 03-21-2022 Goals Date Patient Goal Desired Activity /State Functional Status Date Assessment Result Facility 02-05-2024 Functional status Patient at Baseline [facility] Work Phone: 02-14-2023 Functional status Patient at Baseline [facility] Work Phone: Mental Status Date Assessment Result Facility 02-05-2024 Cognitive function Cognitive Sta tus Patient at Baseline [facility] Work Phone: 02-14-2023 Cognitive function Cognitive Sta tus Patient at Baseline [facility] Work Phone: Clinical Notes 04-18-2021 to 02-05-2024 Note Date & Type Note Facility 02-05-2024 Progress note Note Date/Time February 04, 2024 7:59pm [facility] [address] [place] [address] Hospitalist Progress Note Signed Patient: Adwoa Porter MR#: [id number] : 1955 Acct:[id number] Age/Sex: 68 / M Adm Date: 4 Loc: Room: 6S8487-9 Type: ADM IN Attending Dr: Swathi Burnham [...] Syringe IV-PUSH 01/30/25 21:59 Not Given QSHIFT [facility] Heparin Sodium (Porcine) 3,800 unit 01/31/24 [...] 1,000 Ml IV 02/03/25 08:14 100 mls/hr .[id number] [facility] Administration Insulin Aspart 0 units 01/28/24 22:45 02/04/24 17:13 Insulin Aspart 300 Units/3 Ml Insuln.Pen SUBCUT 01/27/25 22:44 Not Given TID.WM.HS [facility] Protocol Isosorbide Dinitrate 20 mg 01/29/24 09:00 02/04/24 10:08 Isosorbide Dinitrate 20 Mg Tablet PO 01/28/25 08:59 Not Given BID [facility] Levothyroxine Sodium 50 mcg 01/30/24 06:30 02/04/24 06:11 Levothyroxine 50 Mcg Tablet PO 01/29/25 06:29 50 mcg DAILY@0630 [facility] Administration Loperamide HCl 2 mg 01/30/24 10:32 02/01/24 13:28 Loperamide 2 Mg Capsule PO 01/29/25 10:31 2 mg Q2H PRN Administration Diarrhea Nitroglycerin 0.4 mg 01/28/24 21:44 Nitroglycerin 0.4 Mg Tab.Subl SUBLINGUAL 01/27/25 21:43 Q5MIN.X3 PRN Chest Pain Nystatin 1 applic 01/30/24 09:00 02/04/24 18:42 Nystatin 100,000 Unit/Gram Powder 15 Gm Bottle TOPICAL 01/29/25 08:59 1 applic QID [facility] Administration Ondansetron HCl 4 mg 02/01/24 [...] Chloride 0.9 % 10 Ml Syringe IV-PUSH 03/14/25 21:59 10 ml QSHIFT [facility] Administration Vitamin [...] signed by Swathi Burnham MD> 02/05/24 1529 [facility] Work Phone: 1(271) 171-417403-19-2024 Progress note Author Simba Kaufman [facility] February 05, 2024 1:04pm Note Date/Time February 05, 2024 1:0 4pm [facility] [address] [place] [address] Nephrology Progress Note Signed Patient: Adwoa Porter MR#: [id number] : 1955 Acct:[id number] Age/Sex: 68 / M Adm Date: 4 Loc: Room: [address] [place] [address] Type: ADM IN Attending Dr: Swathi Burnham MD Copies to: ~ Date of Service: 02/05/2024 Subjective Subjective Narrative: This is 68-year-old male patient with past medical history of systolic heart failure ejection fraction 10 to 15%, CKD stage III baseline creatinine around 1.5 mg deciliter last year, type 2 diabetes, hyperlipidemia, AICD in place, hypertension, COPD. Patient was admitted recently to [facility] for septic shock from cellulitis. Patient was stabilized and discharged to [facility] withamikacin and 2 other antibiotics. Lab at [facility] revealed SIHRA, hyperkalemia and hyponatremia and patient was sent to [facility]. Lab work this morning revealed potassium [...] Skin: No rashes , warm to touch [employer] EDUCATION: Awake,Alert, following simple command Musculoskeletal: No joint [...] 2.5 Mg Tablet) 2.5 mg PO BID [facility] Stop: 01/31/25 20:59 Last Admin: 02/05/24 09:12 Dose: 2.5 mg Aspirin (Aspirin 81 Mg Tablet.) 81 mg PO DAILY [facility] Stop: 01/31/25 08:59 Last Admin: 02/05/24 09:12 Dose: 81 mg Atorvastatin Calcium (Atorvastatin 80 Mg Tablet) 80 mg PO DAILY [facility] Stop: 01/28/25 08:59 Last Admin: 02/05/24 09:12 Dose: 80 mg Budesonide/Formoterol Fumarate (Budesonide/Formoterol 160-4.5 Mcg 60 Puff/6 Gm Hfa.Aer.Ad) 2 puff INHALATION BID [facility] Stop: 01/31/25 08:59 Calcitriol (Calcitriol 0.25 Mcg Capsule) 0.25 mcg PO MoWeFr@0900 [facility] Stop: 02/05/25 08:59 Carvedilol (Carvedilol 12.5 Mg Tablet) 12.5 mg PO BID [facility] Stop: 01/28/25 08:59 Last Admin: 02/05/24 09:13 Dose: 12.5 mg Cyanocobalamin (Cyanocobalamin 1,000 Mcg Tablet) 1,000 mcg PO DAILY [facility] Stop: 01/31/25 08:59 Last Admin: 02/05/24 09:12 Dose: 1,000 mcg Gabapentin (Gabapentin 100 Mg Capsule) 200 mg PO TID PRN PRN Reason: nerve pain Stop: 01/30/25 21:59 Last Admin: 02/05/24 09:12 Dose: 200 mg Heparin Sodium (Porcine) (Heparin-Lock 500 Unit/5 Ml Syringe) 500 unit IV-PUSH QSHIFT [facility] Stop: 01/30/25 21:59 Last Admin: 02/05/24 05:06 Dose: Not Given Heparin Sodium (Porcine) (Heparin 10,000 Unit/10 Ml Vial) 3,800 unit IV PRN PRN PRN Reason: Dialysis Stop: 01/28/25 14:06 Last Admin: 02/04/24 15:03 Dose: 3,800 unit Hydralazine HCl (Hydralazine 50 Mg Tablet) 50 mg PO TID [facility] Stop: 01/27/25 21:59 Last Admin: 02/05/24 [...] 100 mls @ 200 mls/hr IV Q24H [facility] Stop: 02/02/25 13:59 Last Admin: 02/04/24 17:56 Dose: 200 mls/hr Insulin Aspart (Insulin Aspart 300 Units/3 Ml Insuln.Pen) 0 units SUBCUT TID..[facility]; Protocol Stop: 01/27/25 22:44 Last Admin: 02/05/24 09:15 Dose: 3 units Isosorbide Dinitrate (Isosorbide Dinitrate 20 Mg Tablet) 20 mg PO BID [facility] Stop: 01/28/25 08:59 Last Admin: 02/05/24 09:12 Dose: 20 mg Levothyroxine Sodium (Levothyroxine 50 Mcg Tablet) 50 mcg PO DAILY@0630 [facility] Stop: 01/29/25 06:29 Last Admin: 02/05/24 05:45 Dose: 50 mcg Linezolid (Linezolid 600 Mg Tablet) 600 mg PO BID [facility] Loperamide HCl (Loperamide 2 Mg Capsule) 2 mg PO Q2H PRN PRN Reason: Diarrhea Stop: 01/29/25 10:31 Last Admin: 02/05/24 11:33 Dose: 2 mg Nitroglycerin (Nitroglycerin 0.4 Mg Tab.Subl) 0.4 mg SUBLINGUAL Q5MIN.X3 PRN PRN Reason: Chest Pain Stop: 01/27/25 21:43 Nystatin (Nystatin 100,000 Unit/Gram Powder 15 Gm Bottle) 1 applic TOPICAL QID [facility] Stop: 01/29/25 08:59 Last Admin: 02/05/24 [...] lower leg: Plan: Patient was admitted to [facility] recently with septic shock from cellulitis. [...] concern. Documented By: Simba Kaufman MD 02/05/24 1254 Signed By: <Electronically signed by Simba Kaufman MD> 02/05/[address] [facility] Work Phone: 1(521) 579-159903-19-2024 Progress note Author Farhan Schofield [facility] February 05, 2024 9:20am Note Date/Time February 05, 2024 9:2 0am [facility] [address] [place] [address] Infect. Disease Progress Note Signed Patient: Adwoa Porter MR#: [id number] : 1955 Acct:[id number] Age/Sex: 68 / M Adm Date: 4 Loc: 4P Room: 5H6880-5 Type: ADM IN Attending Dr: Swathi Burnham [...] puff INHALATION BID [facility] Stop: 01/31/25 08:59 Calcitriol (Calcitriol 0.25 Mcg Capsule) 0.25 mcg PO MoWeFr@0900 [facility] Stop: 02/05/25 08:59 Carvedilol (Carvedilol 12.5 Mg Tablet) 12.5 mg PO BID [facility] Stop: 01/28/25 08:59 Last Admin: 02/05/24 09:13 [...] [facility] Stop: 01/30/25 21:59 Last Admin: 02/05/24 05:06 Dose: Not Given Heparin Sodium (Porcine) (Heparin 10,000 Unit/10 Ml Vial) 3,800 unit IV PRN PRN PRN Reason: Dialysis Stop: 01/28/25 14:06 Last Admin: 02/04/24 15:03 Dose: 3,800 unit Hydralazine HCl (Hydralazine 50 Mg Tablet) 50 mg PO TID [facility] Stop: 01/27/25 21:59 Last Admin: 02/05/24 [...] 300 mls @ 300 mls/hr IV Q12H [facility] Last Admin: 02/05/24 03:32 Dose: 300 mls/hr Ertapenem 0.5 gm/ Sodium (Chloride) 100 mls @ 200 mls/hr IV Q24H [facility] Stop: 02/02/25 13:59 Last Admin: 02/04/24 17:56 Dose: 200 mls/hr Insulin Aspart (Insulin Aspart 300 Units/3 Ml Insuln.Pen) 0 units SUBCUT TID.WM.[facility]; Protocol Stop: 01/27/25 22:44 Last Admin: 02/05/24 09:15 Dose: 3 units Isosorbide Dinitrate (Isosorbide Dinitrate 20 Mg Tablet) 20 mg PO BID [facility] Stop: 01/28/25 08:59 Last Admin: 02/05/24 09:12 Dose: 20 mg Levothyroxine Sodium (Levothyroxine 50 Mcg Tablet) 50 mcg PO DAILY@0630 [facility] Stop: 01/29/25 06:29 Last Admin: 02/05/24 [...] QID [facility] Stop: 01/29/25 08:59 Last Admin: 02/05/24 08:03 [...] 10 Ml Syringe) 0 ml IV-PUSH QSHIFT [facility] Stop: 01/30/25 21:59 Last Admin: 02/05/24 05:45 Dose: 10 ml Vitamin D (Cholecalciferol 25 Mcg (1,000 Units) Tablet) 50 mcg PO DAILY [facility] Stop: 01/31/25 08:59 Last Admin: 02/05/24 [...] skin cedric only. Cultures were obtained from [facility]. Antibiotics adjusted tolinezolid and ertapenem. Admission leukocytosis has resolved. Will continue ertapenem IV but switch Linezolid to oral. Given concern for underlying osteomyelitis planning prolonged treatment course. Patient will need platelets followed while on Linezolid. Wound care the foot is being managed by Dr. [place] [place]. Documented By: Farhan Schofield MD 02/05/24917 Signed By: <Electronically signed by MD Farhan Schofield> 02/05/[address] [facility] Work Phone: 1(372) 586-940003-18-2024 Progress note Author Valentin Valle [facility] February 04, 2024 6:29pm Note Date/Time February 04, 2024 6:2 9pm [facility] [address] [place] [address] Podiatry Progress Note Signed Patient: Adwoa Porter MR#: [id number] : 1955 Acct:[id number] Age/Sex: 68 / M Adm Date: 4 Loc: Room: [address] [place] [address] Type: ADM IN Attending Dr: Swathi Burnham [...] Dr. Andrews. Theculture that was taken at [facility] revealed normal skinflora. Patient's antibiotic therapy [...] From podiatry standpoint okay to discharge back [facility] with current wound care orders. [...] By: <Electronically signed by NELLY Valle> 02/04/24 7724 [facility] Work Phone: [phone]) 394-681503-18-2024 Progress note Author Simba Kaufman [facility] February 04, 2024 5:59pm Note Date/Time February 04, 2024 1:3 0pm [facility] [address] [place], [place] [id number] Nephrology Progress Note Signed Patient: Adwoa Porter MR#: [id number] : 1955 Acct:[id number] Age/Sex: 68 / M Adm Date: 4 Loc: Room: [address] [place] [address] Type: ADM IN Attending Dr: Swathi Burnham MD Copies to: ~ Date of Service: 02/04/2024 Subjective Subjective Narrative: This is 68-year-old male patient with past medical history of systolic heart failure ejection fraction 10 to 15%, CKD stage III baseline creatinine around 1.5 mg deciliter last year, type 2 diabetes, hyperlipidemia, AICD in place, hypertension, COPD. Patient was admitted recently to [facility] for septic shock from cellulitis. Patient was stabilized and discharged to [facility] withamikacin and 2 other antibiotics. Lab at [facility] revealed SHIRA, hyperkalemia and hyponatremia and patient was sent to [facility]. Lab work this morning revealed potassium [...] Skin: No rashes , warm to touch [employer]: Awake,Alert, following simple command Musculoskeletal: No joint [...] 2.5 Mg Tablet) 2.5 mg PO BID [facility] Stop: 01/31/25 20:59 Last Admin: 02/04/24 10:08 Dose: Not Given Aspirin (Aspirin 81 Mg Tablet.) 81 mg PO DAILY [facility] Stop: 01/31/25 08:59 Last Admin: 02/03/24 08:24 [...] 300 mls @ 300 mls/hr IV Q12H [facility] Last Admin: 02/04/24 03:43 Dose: 300 mls/hr Ertapenem 0.5 gm/ Sodium (Chloride) 100 mls @ 200 mls/hr IV Q24H [facility] Stop: 02/02/25 13:59 Last Admin: 02/03/24 14:11 Dose: 200 mls/hr Sodium Chloride (0.9% Sodium Chloride 1,000 Ml) 1,000 mls @ 75 mls/hr IV .[id number] [facility] Stop: 02/03/25 08:14 Last Admin: 02/04/24 08:04 Dose: 100 mls/hr Insulin Aspart (Insulin Aspart 300 Units/3 Ml Insuln.Pen) 0 units SUBCUT TID..[facility]; Protocol Stop: 01/27/25 22:44 Last Admin: 02/04/24 10:07 Dose: 3 units Isosorbide Dinitrate (Isosorbide Dinitrate 20 Mg Tablet) 20 mg PO BID [facility] Stop: 01/28/25 08:59 Last Admin: 02/04/24 10:08 Dose: Not Given Levothyroxine Sodium (Levothyroxine 50 Mcg Tablet) 50 mcg PO DAILY@0630 [facility] Stop: 01/29/25 06:29 Last Admin: 02/04/24 [...] 15 Gm Bottle) 1 applic TOPICAL QID [facility] Stop: 01/29/25 08:59 Last Admin: 02/04/24 [...] lower leg: Plan: Patient was admitted to [facility] recently with septic shock from cellulitis. [...] <Electronically signed by Simba Kaufman MD> 02/04/[address] [facility] Work Phone: [phone] 446-450503-18-2024 Progress note Author Farhan Schofield [facility] February 04, 2024 10:01am Note Date/Time February 04, 2024 10: 01am [facility] [address] [place] [address] Infect. Disease Progress Note Signed Patient: Adwoa Porter MR#: [id number] : 1955 Acct:[id number] Age/Sex: 68 / M Adm Date: 4 Loc: Room: [address] [place] [address] Type: ADM IN Attending Dr: Farhan Hudson [...] RACHANA Stop: 01/27/25 21:59 Last Admin: 02/03/24 21:04 [...] 300 mls @ 300 mls/hr IV Q12H [facility] Last Admin: 02/04/24 03:43 Dose: 300 mls/hr Ertapenem 0.5 gm/ Sodium (Chloride) 100 mls @ 200 mls/hr IV Q24H [facility] Stop: 02/02/25 13:59 Last Admin: 02/03/24 14:11 Dose: 200 mls/hr Sodium Chloride (0.9% Sodium Chloride 1,000 Ml) 1,000 mls @ 75 mls/hr IV .[id number] [facility] Stop: 02/03/25 08:14 Last Admin: 02/04/24 08:04 Dose: 100 mls/hr Insulin Aspart (Insulin Aspart 300 Units/3 Ml Insuln.Pen) 0 units SUBCUT TID.WM.[facility]; Protocol Stop: 01/27/25 22:44 Last Admin: 02/03/24 21:06 Dose: 3 units Isosorbide Dinitrate (Isosorbide Dinitrate 20 Mg Tablet) 20 mg PO BID [facility] Stop: 01/28/25 08:59 Last Admin: 02/03/24 21:04 Dose: 20 mg Levothyroxine Sodium (Levothyroxine 50 Mcg Tablet) 50 mcg PO DAILY@0630 [facility] Stop: 01/29/25 06:29 Last Admin: 02/04/24 [...] 15 Gm Bottle) 1 applic TOPICAL QID [facility] Stop: 01/29/25 08:59 Last Admin: 02/04/24 [...] skin cedric only. Cultures were obtained from [place]. Antibiotics adjusted tolinezolid and ertapenem. Admission leukocytosis has improved and today is down to 10.1. Urine culture as above but only 15,000 colonies and sensitive to Invanz. Continuing Invanz and linezolid. Documented By: Farhan Schofield MD 02/04/24 0958 Signed By: <Electronically signed by MD Farhan Schofield> 02/04/[address] [facility] Work Phone: 1([phone]) 524-149503-18-2024 [facility] Progress note [facility] February 03, 2024 4:43pm Note Date/Time February 03, 2024 4:4 3pm [facility] [address] [place] [address] Hospitalist Progress Note Signed Patient: Adwoa Porter MR#: [id number] : 1955 Acct:[id number] Age/Sex: 68 / M Adm Date: 4 Loc: Room: [address] [place] [address] Type: ADM IN Attending Dr: Farhan Hudson [...] on the region has exhibited improvement. His [id number] score is at minimum 5. Labile on [...] Nasal Cannula 2 02/03/24 15:21 02/03/24 15:21 02/03/24 15:21 02/03/24 [...] Administration Vitamin D 50 mcg 02/01/24 09:00 03/17/24 08:22 Cholecalciferol 25 Mcg (1,000 Units) Tablet [...] signed by Farhan Hudson DO> 02/03/[address] [facility] Work Phone: 1([phone] 636-856203-17-2024 Progress note Author Lia Law [facility] February 03, 2024 11:03am Note Date/Time February 03, 2024 11: 03am [facility] [address] [place] [address] Nephrology Progress Note Signed Patient: Adwoa Porter MR#: [id number] : 1955 Acct:[id number] Age/Sex: 68 / M Adm Date: 4 Loc: Room: [address] [place] [address] Type: ADM IN Attending Dr: Farhan Hudson DO Copies to: ~ Date of Service: 02/03/2024 Subjective Subjective Narrative: This is 68-year-old male patient with past medical history of systolic heart failure ejection fraction 10 to 15%, CKD stage III baseline creatinine around 1.5 mg deciliter last year, type 2 diabetes, hyperlipidemia, AICD in place, hypertension, COPD. Patient was admitted recently to [facility] for septic shock from cellulitis. Patient was stabilized and discharged to [facility] withamikacin and 2 other antibiotics. Lab at [facility] revealed SHIRA, hyperkalemia and hyponatremia and patient was sent to [facility]. Lab work this morning revealed potassium [...] 50 Mg Tablet) 50 mg PO TID [facility] Stop: 01/27/25 21:59 Last Admin: 02/03/24 08:23 [...] 300 mls @ 300 mls/hr IV Q12H [facility] Last Admin: 02/03/24 03:30 Dose: 300 mls/hr Ertapenem 0.5 gm/ Sodium (Chloride) 100 mls @ 200 mls/hr IV Q24H [facility] Stop: 02/02/25 13:59 Insulin Aspart (Insulin Aspart 300 Units/3 Ml Insuln.Pen) 0 units SUBCUT TID..[facility]; Protocol Stop: 01/27/25 22:44 Last Admin: 02/03/24 08:21 Dose: 4 units Isosorbide Dinitrate (Isosorbide Dinitrate 20 Mg Tablet) 20 mg PO BID [facility] Stop: 01/28/25 08:59 Last Admin: 02/03/24 08:23 Dose: 20 mg Levothyroxine Sodium (Levothyroxine 50 Mcg Tablet) 50 mcg PO DAILY@0630 [facility] Stop: 01/29/25 06:29 Last Admin: 02/03/24 [...] QID [facility] Stop: 01/29/25 08:59 Last Admin: 02/03/24 08:25 [...] lower leg: Plan: Patient was admitted to [facility] recently with septic shock from cellulitis. [...] <Electronically signed by Lia Law MD> 02/03/[address] [facility] Work Phone: [phone] 207-693303-16-2024 Progress note Author Farhan Hudson [facility] February 02, 2024 3:04pm Note Date/Time February 02, 2024 3:0 4pm [facility] [address] [place] [address] Hospitalist Progress Note Signed Patient: Adwoa Porter MR#: [id number] : 1955 Acct:[id number] Age/Sex: 68 / M Adm Date: 4 Loc: 4 Room: 7I5958-1 Type: ADM IN Attending Dr: Farhan Hudson [...] this will be a continued risk. His [id number]-MHIb score is at minimum 5. Eliquis 2.5 [...] Tablet PO 01/31/25 20:59 Not Given BID [facility] Aspirin 81 mg 02/01/24 09:00 02/01/24 08:44 [...] Syringe IV-PUSH 01/30/25 21:59 Not Given QSHIFT [facility] Heparin Sodium (Porcine) 3,800 unit 01/31/24 [...] Insuln.Pen SUBCUT 01/27/25 22:44 Not Given TID.WM.HS [facility] Protocol Isosorbide Dinitrate 20 mg 01/29/24 [...] <Electronically signed by Farhan Hudson DO> 02/02/24 1504 [facility] Work Phone: [phone]) 877-775403-16-2024 Progress note Author Valentin Valle [facility] February 02, 2024 12:48pm Note Date/Time February 02, 2024 12: 48pm [facility] [address] [place] [address] Podiatry Progress Note Signed Patient: Adwoa Porter MR#: [id number] : 1955 Acct:[id number] Age/Sex: 68 / M Adm Date: 4 Loc: Room: [address] [place] [address] Type: ADM IN Attending Dr: Farhan Hudson [...] . The culture that was taken at [facility] revealed normal skin cedric. Patient's antibiotic [...] From podiatry standpoint okay to discharge back [facility] with current wound care orders. [...] <Electronically signed by NELLY Valle> 02/02/[address] [facility] Work Phone: [phone] Progress note Author Lia Law [facility] February 02, 2024 12:47pm Note Date/Time February 02, 2024 12: 47pm [facility] [address] [place] [address] Nephrology Progress Note Signed Patient: Adwoa Porter MR#: [id number] : 1955 Acct:[id number] Age/Sex: 68 / M Adm Date: 4 Loc: Room: [address] [place] [address] Type: ADM IN Attending Dr: Farhan Hudson DO Copies to: ~ Date of Service: 02/02/2024 Subjective Subjective Narrative: This is 68-year-old male patient with past medical history of systolic heart failure ejection fraction 10 to 15%, CKD stage III baseline creatinine around 1.5 mg deciliter last year, type 2 diabetes, hyperlipidemia, AICD in place, hypertension, COPD. Patient was admitted recently to [facility] for septic shock from cellulitis. Patient was stabilized and discharged to [facility] withamikacin and 2 other antibiotics. Lab at [facility] revealed SHIRA, hyperkalemia and hyponatremia and patient was sent to [facility]. Lab work this morning revealed potassium [...] 2.5 Mg Tablet) 2.5 mg PO BID [facility] Stop: 01/31/25 20:59 Last Admin: 02/02/24 09:58 Dose: Not Given Aspirin (Aspirin 81 Mg Tablet.Dr) 81 mg PO DAILY [facility] Stop: 01/31/25 08:59 Last Admin: 02/01/24 08:44 Dose: 81 mg Atorvastatin Calcium (Atorvastatin 80 Mg Tablet) 80 mg PO DAILY [facility] Stop: 01/28/25 08:59 Last Admin: 02/01/24 08:45 Dose: 80 mg Budesonide/Formoterol Fumarate (Budesonide/Formoterol 160-4.5 Mcg 60 Puff/6 Gm Hfa.Aer.Ad) 2 puff INHALATION BID [facility] Stop: 01/31/25 08:59 Carvedilol (Carvedilol 12.5 Mg Tablet) 12.5 mg PO BID [facility] Stop: 01/28/25 08:59 Last Admin: 02/02/24 09:59 Dose: Not Given Cyanocobalamin (Cyanocobalamin 1,000 Mcg Tablet) 1,000 mcg PO DAILY [facility] Stop: 01/31/25 08:59 Last Admin: 02/01/24 08:44 Dose: 1,000 mcg Gabapentin (Gabapentin 100 Mg Capsule) 200 mg PO TID PRN PRN Reason: nerve pain Stop: 01/30/25 21:59 Last Admin: 02/01/24 15:37 Dose: 200 mg Heparin Sodium (Porcine) (Heparin-Lock 500 Unit/5 Ml Syringe) 500 unit IV-PUSH QSHIFT [facility] Stop: 01/30/25 21:59 Last Admin: 02/02/24 07:02 Dose: Not Given Heparin Sodium (Porcine) (Heparin 10,000 Unit/10 Ml Vial) 3,800 unit IV PRN PRN PRN Reason: Dialysis Stop: 01/28/25 14:06 Last Admin: 02/02/24 12:08 Dose: 3,800 unit Hydralazine HCl (Hydralazine 50 Mg Tablet) 50 mg PO TID [facility] Stop: 01/27/25 21:59 Last Admin: 02/02/24 09:59 Dose: Not Given Linezolid (Zyvox) 600 mg in 300 mls @ 300 mls/hr IV Q12H [facility] Last Admin: 03/15/24 23:20 Dose: 300 mls/hr Sodium Chloride (0.9% [...] 100 mls @ 200 mls/hr IV Q24H [facility] Stop: 01/30/25 09:59 Last Admin: 02/01/24 10:35 Dose: 200 mls/hr Insulin Aspart (Insulin Aspart 300 Units/3 Ml Insuln.Pen) 0 units SUBCUT TID..[facility]; Protocol Stop: 01/27/25 22:44 Last Admin: 02/01/24 21:02 Dose: 4 units Isosorbide Dinitrate (Isosorbide Dinitrate 20 Mg Tablet) 20 mg PO BID [facility] Stop: 01/28/25 08:59 Last Admin: 02/02/24 09:59 Dose: Not Given Levothyroxine Sodium (Levothyroxine 50 Mcg Tablet) 50 mcg PO DAILY@0630 [facility] Stop: 01/29/25 06:29 Last Admin: 02/02/24 [...] 15 Gm Bottle) 1 applic TOPICAL QID [facility] Stop: 01/29/25 08:59 Last Admin: 02/02/24 [...] lower leg: Plan: Patient was admitted to [facility] recently with septic shock from cellulitis. [...] or concern. Documented By: Lia Law MD 02/02/241244 Signed By: <Electronically signed by Lia Law MD> 02/02/[address] [facility] Work Phone: [phone] Progress note Author Valentin Valle [facility] February 01, 2024 2:37pm Note Date/Time February 01, 2024 2:3 7pm [facility] [address] [place] [address] Podiatry Progress Note Signed Patient: Adwoa Porter MR#: [id number] : 1955 Acct:[id number] Age/Sex: 68 / M Adm Date: 4 Loc: 4 Room: [id number] Type: ADM IN Attending Dr: Farhan Hudson [...] Plan: The culture that was taken at [facility] revealed normal skin cedric. Patient's white [...] podiatry standpoint okay to discharge back to [facility] with current wound care orders. Will [...] By: <Electronically signed by NELLY Valle> 02/01/[address] [facility] Work Phone: [phone] Progress note Author Farhan Hudson [facility] February 01, 2024 1:53pm Note Date/Time February 01, 2024 1:5 3pm [facility] [address] [place] [address] Hospitalist Progress Note Signed Patient: Adwoa Porter MR#: [id number] : 1955 Acct:[id number] Age/Sex: 68 / M Adm Date: 4 Loc: Room: [address] [place] [address] Type: ADM IN Attending Dr: Farhan Hudson [...] this will be a continued risk. His [id number] score is at minimum 5 and undoubtedly [...] <Electronically signed by Farhan Hudson DO> 02/01/[address] [facility] Work Phone: [phone] 482-346903-15-2024 Progress note Author Lia Alychristine [facility] February 01, 2024 1:11pm Note Date/Time February 01, 2024 1:1 1pm [facility] [address] [place] [address] Nephrology Progress Note Signed Patient: Adwoa Porter MR#: [id number] : 1955 Acct:[id number] Age/Sex: 68 / M Adm Date: 4 Loc: Room: [id number] Type: ADM IN Attending Dr: Farhan Hudson DO Copies to: ~ Date of Service: 02/01/2024 Subjective Subjective Narrative: This is 68-year-old male patient with past medical history of systolic heart failure ejection fraction 10 to 15%, CKD stage III baseline creatinine around 1.5 mg deciliter last year, type 2 diabetes, hyperlipidemia, AICD in place, hypertension, COPD. Patient was admitted recently to [facility] for septic shock from cellulitis. Patient was stabilized and discharged to [facility] withamikacin and 2 other antibiotics. Lab at [facility] revealed SHIRA, hyperkalemia and hyponatremia and patient was sent to [facility]. Lab work this morning revealed potassium [...] 81 Mg Tablet.) 81 mg PO DAILY [facility] Stop: 01/31/25 08:59 Last Admin: 02/01/24 08:44 Dose: 81 mg Atorvastatin Calcium (Atorvastatin 80 Mg Tablet) 80 mg PO DAILY [facility] Stop: 01/28/25 08:59 Last Admin: 02/01/24 08:45 Dose: 80 mg Budesonide/Formoterol Fumarate (Budesonide/Formoterol 160-4.5 Mcg 60 Puff/6 Gm Hfa.Aer.Ad) 2 puff INHALATION BID [facility] Stop: 01/31/25 08:59 Carvedilol (Carvedilol 12.5 Mg Tablet) 12.5 mg PO BID [facility] Stop: 01/28/25 08:59 Last Admin: 02/01/24 08:44 Dose: 12.5 mg Cyanocobalamin (Cyanocobalamin 1,000 Mcg Tablet) 1,000 mcg PO DAILY [facility] Stop: 01/31/25 08:59 Last Admin: 02/01/24 08:44 Dose: 1,000 mcg Gabapentin (Gabapentin 100 Mg Capsule) 200 mg PO TID PRN PRN Reason: nerve pain Stop: 01/30/25 21:59 Last Admin: 02/01/24 11:14 Dose: 200 mg Heparin Sodium (Porcine) (Heparin 5,000 Unit/Ml Vial) 5,000 unit SUBCUT Q8HR [facility] Stop: 01/27/25 21:59 Last Admin: 02/01/24 05:58 Dose: Not Given Heparin Sodium (Porcine) (Heparin-Lock 500 Unit/5 Ml Syringe) 500 unit IV-PUSH QSHIFT [facility] Stop: 01/30/25 21:59 Last Admin: 02/01/24 05:59 Dose: Not Given Heparin Sodium (Porcine) (Heparin 10,000 Unit/10 Ml Vial) 3,800 unit IV PRN PRN PRN Reason: Dialysis Stop: 01/28/25 14:06 Last Admin: 01/31/24 16:49 Dose: 3,800 unit Hydralazine HCl (Hydralazine 50 Mg Tablet) 50 mg PO TID [facility] Stop: 01/27/25 21:59 Last Admin: 02/01/24 08:44 Dose: 50 mg Linezolid (Zyvox) 600 mg in 300 mls @ 300 mls/hr IV Q12H [facility] Last Admin: 02/01/24 11:10 Dose: 300 [...] 100 mls @ 200 mls/hr IV Q24H [facility] Stop: 01/30/25 09:59 Last Admin: 02/01/24 10:35 Dose: 200 mls/hr Insulin Aspart (Insulin Aspart 300 Units/3 Ml Insuln.Pen) 0 units SUBCUT TID.WM.[facility]; Protocol Stop: 01/27/25 22:44 Last Admin: 02/01/24 11:44 Dose: 4 units Isosorbide Dinitrate (Isosorbide Dinitrate 20 Mg Tablet) 20 mg PO BID [facility] Stop: 01/28/25 08:59 Last Admin: 02/01/24 08:44 Dose: 20 mg Levothyroxine Sodium (Levothyroxine 50 Mcg Tablet) 50 mcg PO DAILY@0630 [facility] Stop: 01/29/25 06:29 Last Admin: 02/01/24 [...] 15 Gm Bottle) 1 applic TOPICAL QID [facility] Stop: 01/29/25 08:59 Last Admin: 02/01/24 [...] QSHIFT [facility] Stop: 01/30/25 21:59 Last Admin: 02/01/24 05:59 [...] lower leg: Plan: Patient was admitted to [facility] recently with septic shock from cellulitis. [...] <Electronically signed by Lia Law MD> 02/01/[address] [facility] Work Phone: [phone]) [phone] Progress note Author Farhan Shcofield [facility] February 01, 2024 12:41pm Note Date/Time February 01, 2024 12: 41pm [facility] [address] [place] [address] Infect. Disease Progress Note Signed Patient: Adwoa Porter MR#: [id number] : 1955 Acct:[id number] Age/Sex: 68 / M Adm Date: 4 Loc: Room: [address] [place] [address] Type: ADM IN Attending Dr: Farhan Hudson DO Copies to: ~ Date of Service: 02/01/2024 Subjective Interval history: Patient got a right IJ tunneled catheter placement yesterday. Has BiPAP in place. Denies new physical complaints. Exam Physical Exam Vital Signs: Temp Pulse Resp BP Pulse Ox O2 Del Method O2 Flow Rate 98.4 F 85 14 110/66 97 BiPAP 2 03/15/24 11:52 02/01/24 11:52 02/01/24 11:52 02/01/24 11:52 [...] QSHIFT [facility] Stop: 01/30/25 21:59 Last Admin: 02/01/24 05:59 Dose: Not Given Heparin Sodium (Porcine) (Heparin 10,000 Unit/10 Ml Vial) 3,800 unit IV PRN PRN PRN Reason: Dialysis Stop: 01/28/25 14:06 Last Admin: 01/31/24 16:49 Dose: 3,800 unit Hydralazine HCl (Hydralazine 50 Mg Tablet) 50 mg PO TID [facility] Stop: 01/27/25 21:59 Last Admin: 02/01/24 08:44 Dose: 50 mg Linezolid (Zyvox) 600 mg in 300 mls @ 300 mls/hr IV Q12H [facility] Last Admin: 02/01/24 11:10 Dose: 300 [...] 100 mls @ 200 mls/hr IV Q24H [facility] Stop: 01/30/25 09:59 Last Admin: 02/01/24 10:35 Dose: 200 mls/hr Insulin Aspart (Insulin Aspart 300 Units/3 Ml Insuln.Pen) 0 units SUBCUT TID.[facility]; Protocol Stop: 01/27/25 22:44 Last Admin: 02/01/24 11:44 Dose: 4 units Isosorbide Dinitrate (Isosorbide Dinitrate 20 Mg Tablet) 20 mg PO BID [facility] Stop: 01/28/25 08:59 Last Admin: 02/01/24 08:44 Dose: 20 mg Levothyroxine Sodium (Levothyroxine 50 Mcg Tablet) 50 mcg PO DAILY@0630 [facility] Stop: 01/29/25 06:29 Last Admin: 02/01/24 [...] 15 Gm Bottle) 1 applic TOPICAL QID [facility] Stop: 01/29/25 08:59 Last Admin: 02/01/24 [...] QSHIFT [facility] Stop: 01/30/25 21:59 Last Admin: 02/01/24 05:59 [...] skin cedric only. Cultures were obtained from [place]. Antibiotics adjusted tolinezolid and ertapenem. Admission leukocytosis has improved. Today down to 11.4. Vascular continues to follow patient. No foot surgery planned for while he is here at this time he will follow-up with Dr. Arroyo upon discharge Documented By: Farhan Schofield MD 02/01/24 1237 Signed By: <Electronically signed by MD Farhan Schofield> 02/01/24 1241 [facility] Work Phone: 1(237) 847-104003-15-2024 Progress note Author Selin George [facility] February 01, 2024 11:33am Note Date/Time February 01, 2024 8:4 6am [facility] [address] [place] [address] Vascular Surgery Progress Note Signed Patient: Adwoa Porter MR#: [id number] : 1955 Acct:[id number] Age/Sex: 68 / M Adm Date: 4 Loc: Room: [address] [place] [address] Type: ADM IN Attending Dr: Farhan Hudson [...] MPV Neut % (Auto) Lymph % (Auto) Davison % (Auto) Eos % (Auto) Baso % (Auto) Nucleat RBC Rel Count Neut # (Auto) Lymph # (Auto) Davison # (Auto) Eos # (Auto) Baso # (Auto) PT INR APTT PHA Creatinine Clear Sodium Potassium Chloride Carbon Dioxide Anion Gap BUN Creatinine Est GFR (CKD-EPI) Glucose POC Glucose 191 116 Calcium HCV RNA (PCR) IU/mL N/A HCV RNA PCR advertising copywriter log10 N/A 02/01/24 02/01/24 06:00 08:04 Corrected WBC 11.4 H Uncorrected WBC Count 11.4 H RBC 3.24 L Hgb 8.7 L Hct 25.7 L MCV 79.4 L MCH 26.8 L MCHC 33.8 RDW 17.2 H Plt Count 285 MPV 7.3 Neut % (Auto) 82.0 Lymph % (Auto) 10.2 Davison % (Auto) 4.9 Eos % (Auto) 2.0 Baso % (Auto) 0.9 Nucleat RBC Rel Count 0.0 Neut # (Auto) 9.4 H Lymph # (Auto) 1.2 Davison # (Auto) 0.6 Eos # (Auto) 0.2 Baso # (Auto) 0.1 PT 21.5 H INR 1.9 APTT 36.7 H PHA Creatinine Clear 26.53 Sodium 133 L Potassium 4.1 Chloride 96 L Carbon Dioxide 27.5 Anion Gap 13.6 BUN 35 H Creatinine 2.98 H Est GFR (CKD-EPI) 21.976 Glucose 169 H POC Glucose 202 Calcium 7.0 L HCV RNA (PCR) IU/mL HCV RNA PCR advertising copywriter log10 Microbiology Microbiology: Microbiology - Results from [...] today. Documented By: Raul Bravo MD 02/01/24 0838 Signed By: <Electronically signed by Raul Bravo MD> 02/01/24 0959 <Electronically signed by CHARISSE George> 02/01/[address] [facility] Work Phone: 1([phone] 217-751603-14-2024 Progress note Author Farhan Hudson [facility] January 31, 2024 9:28pm Note Date/Time January 31, 2024 9:2 8pm [facility] [address] [place] [address] Hospitalist Progress Note Signed Patient: Adwoa Porter MR#: [id number] : 1955 Acct:[id number] Age/Sex: 68 / M Adm Date: 4 Loc: 4 Room: [address] [place] [address] Type: ADM IN Attending Dr: Farhan Hudson [...] Insuln.Pen SUBCUT 01/27/25 22:44 Not Given TID.WM.HS [facility] Protocol Isosorbide Dinitrate 20 mg 01/29/24 [...] above Documented By: Farhan Hudson DO 01/31/24 21 21 Signed By: <Electronically signed by Farhan Hudson DO> 01/31/242127 [facility] Work Phone: 1(701) 962-550503-14-2024 Progress note Author Farhan Hudson [facility] January 31, 2024 2:00pm Note Date/Time January 30, 2024 8:3 2pm [facility] [address] [place] [address] Hospitalist Progress Note Signed Patient: Adwoa Porter MR#: [id number] : 1955 Acct:[id number] Age/Sex: 68 / M Adm Date: 4 Loc: Room: [address] [place] [address] Type: ADM IN Attending Dr: Farhan Hudson [...] signed by Farhan Hudson DO> 01/31/[address] [facility] Work Phone: 1(955) 756-878103-14-2024 [facility]2024 Progress note Author Farhan Schofield [facility] January 31, 2024 9:24am Note Date/Time January 31, 2024 9:1 0am [facility] [address] [place] [address] Infect. Disease Progress Note Signed Patient: Adwoa Porter MR#: [id number] : 1955 Acct:[id number] Age/Sex: 68 / M Adm Date: 4 Loc: 4P Room: 9Y6180-5 Type: ADM IN Attending Dr: Farhan Hudson [...] RACHANA Stop: 01/28/25 08:59 Last Admin: 01/30/24 20:37 Dose: 12.5 mg Heparin Sodium (Porcine) (Heparin 5,000 Unit/Ml Vial) 5,000 unit SUBCUT Q8HR RACHANA Stop: 01/27/25 21:59 Last Admin: 01/31/24 06:38 Dose: Not Given Heparin Sodium (Porcine) (Heparin 10,000 Unit/10 Ml Vial) 2,600 unit IV PRN PRN PRN Reason: Dialysis Stop: 01/28/25 14:06 Last Admin: 01/29/24 15:13 Dose: 2,600 unit Hydralazine HCl (Hydralazine 50 Mg Tablet) 50 mg PO TID RACHANA Stop: 01/27/25 21:59 Last Admin: 01/31/24 03:12 Dose: Not Given Ceftriaxone Sodium (Rocephin) 1 gm in 50 mls @ 100 mls/hr IV Q24H [facility] Last Admin: 01/30/24 20:37 Dose: 100 mls/hr Linezolid (Zyvox) 600 mg in 300 mls @ 300 mls/hr IV Q12H [facility] Last Admin: 01/30/24 21:37 Dose: 300 [...] Units/3 Ml Insuln.Pen) 0 units SUBCUT TID.WM.HS [facility]; Protocol Stop: 01/27/25 22:44 Last Admin: 01/31/24 08:51 Dose: Not Given Isosorbide Dinitrate (Isosorbide Dinitrate 20 Mg Tablet) 20 mg PO BID [facility] Stop: 01/28/25 08:59 Last Admin: 01/30/24 20:37 Dose: 20 mg Levothyroxine Sodium (Levothyroxine 50 Mcg Tablet) 50 mcg PO DAILY@0630 [facility] Stop: 01/29/25 06:29 Last Admin: 01/31/24 06:39 Dose: 50 mcg Loperamide HCl (Loperamide 2 Mg Capsule) 2 mg PO Q2H PRN PRN Reason: Diarrhea Stop: 01/29/25 10:31 Last Admin: 01/30/24 20:37 Dose: 2 mg Nitroglycerin (Nitroglycerin 0.4 Mg Tab.Subl) 0.4 mg SUBLINGUAL Q5MIN.X3 PRN PRN Reason: Chest Pain Stop: 01/27/25 21:43 Nystatin (Nystatin 100,000 Unit/Gram Powder 15 Gm Bottle) 1 applic TOPICAL QID [facility] Stop: 01/29/25 08:59 Last Admin: 01/30/24 20:55 [...] dressing changes. Based on culture results from [facility] though faxed copy difficult to see given blacked out names of organisms. ? 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 Change ceftriaxone to invanz; maintain linezolid. Documented By: Farhan Schofield MD 01/31/2407 Signed By: <Electronically signed by MD Farhan Schofield> 01/31/[address] [facility] Work Phone: 1(665) 978-556203-14-2024 Progress note Author Valentin Valle [facility] January 31, 2024 9:18am Note Date/Time January 31, 2024 9:1 6am [facility] [address] [place] [address] Podiatry Progress Note Signed Patient: Adwoa Porter MR#: [id number] : 1955 Acct:[id number] Age/Sex: 68 / M Adm Date: 4 Loc: Room: [address] [place] [address] Type: ADM IN Attending Dr: Farhan Hudson [...] follow-up [facility] Dr. Arroyo [facility] surgical intervention. I explained [...] <Electronically signed by NELLY Valle> 01/31/[address] [facility] Work Phone: 1(725) 917-807003-14-2024 Consult note Author Raul Bravo [facility] January 31, 2024 8:34am Note Date/Time January 30, 2024 9:1 9am [facility] [address] [place] [address] Vascular Surgery Consult Note Signed Patient: Adwoa Porter MR#: [id number] : 1955 Acct:[id number] Age/Sex: 68 / M Adm Date: 4 Loc: Room: [address] [place] [address] Type: ADM IN Attending Dr: Farhan Hudson DO Copies to: CHARISSE Guerrero MD Michael R. Frings, DO Thomas R Conley, DO~ HPI Consult HPI History of present illness: [...] for tunneled hemodialysis catheter. 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 cc:: CC: Farhan Husdon DO Data of Consult Consult date: 01/30/2024 [...] complaints related to the presenting medical problem. [facility] Medical History (Updated 01/29/24 @ 18:01 by [...] Comments: lives [place] a [place] - with Proimse (friend) Allergies & Active Medications Medications and [...] MPV Neut % (Auto) Lymph % (Auto) Davison % (Auto) Eos % (Auto) Baso % (Auto) Nucleat RBC Rel Count Neut # (Auto) Lymph # (Auto) Davison # (Auto) Eos # (Auto) Baso # (Auto) PHA Creatinine Clear Sodium Potassium Chloride Carbon Dioxide Anion Gap BUN Creatinine Est GFR (CKD-EPI) Glucose POC Glucose 236 Calcium Urine Color Dark yellow A Urine Appearance Cloudy A Urine pH 5.0 Ur Specific Malone 1.019 Urine Protein 100 H Urine Glucose [...] % (Auto) 83.7 Lymph % (Auto) 9.8 Davison % (Auto) 3.8 Eos % (Auto) 1.7 Baso % (Auto) 1.0 Nucleat RBC Rel Count 0.0 Neut # (Auto) 11.3 H Lymph # (Auto) 1.3 Davison # (Auto) 0.5 Eos # (Auto) 0.2 Baso # (Auto) 0.1 PHA Creatinine Clear 17.22 Sodium 128 L Potassium 4.2 D Chloride 95 L Carbon Dioxide 21.9 Anion Gap 15.3 H BUN 73 H D Creatinine 4.57 H D Est GFR (CKD-EPI) 13.156 Glucose 144 H POC Glucose 256 170 Calcium 7.1 L Urine Color Urine Appearance Urine pH Ur Specific Malone Urine Protein Urine Glucose (UA) Urine Ketones [...] <Electronically signed by CHARISSE George> 01/31/[address] [facility] Work Phone: [phone] Progress note Author Lia Law [facility] January 30, 2024 2:30pm Note Date/Time January 30, 2024 2:3 0pm [facility] [address] [place] [address] Nephrology Progress Note Signed Patient: Adwoa Porter MR#: [id number] : 1955 Acct:[id number] Age/Sex: 68 / M Adm Date: 4 Loc: 4 Room: [id number] Type: ADM IN Attending Dr: Farhan Hudson DO Copies to: ~ Date of Service: 01/30/2024 Subjective Subjective Narrative: This is 68-year-old male patient with past medical history of systolic heart failure ejection fraction 10 to 15%, CKD stage III baseline creatinine around 1.5 mg deciliter last year, type 2 diabetes, hyperlipidemia, AICD in place, hypertension, COPD. Patient was admitted recently to [facility] for septic shock from cellulitis. Patient was stabilized and discharged to [facility] withamikacin and 2 other antibiotics. Lab at [facility] revealed SHIRA, hyperkalemia and hyponatremia and patient was sent to [facility]. Lab work this morning revealed potassium [...] 80 Mg Tablet) 80 mg PO DAILY [facility] Stop: 01/28/25 08:59 Last Admin: 01/30/24 09:02 Dose: 80 mg Carvedilol (Carvedilol 12.5 Mg Tablet) 12.5 mg PO BID [facility] Stop: 01/28/25 08:59 Last Admin: 01/30/24 09:02 Dose: 12.5 mg Heparin Sodium (Porcine) (Heparin 5,000 Unit/Ml Vial) 5,000 unit SUBCUT Q8HR [facility] Stop: 01/27/25 21:59 Last Admin: 01/30/24 07:31 Dose: Not Given Heparin Sodium (Porcine) (Heparin 10,000 Unit/10 Ml Vial) 2,600 unit IV PRN PRN PRN Reason: Dialysis Stop: 01/28/25 14:06 Last Admin: 01/29/24 15:13 Dose: 2,600 unit Hydralazine HCl (Hydralazine 50 Mg Tablet) 50 mg PO TID [facility] Stop: 01/27/25 21:59 Last Admin: 01/30/24 09:02 Dose: 50 mg Ceftriaxone Sodium (Rocephin) 1 gm in 50 mls @ 100 mls/hr IV Q24H [facility] Last Admin: 01/29/24 21:13 Dose: 100 mls/hr Linezolid (Zyvox) 600 mg in 300 mls @ 300 mls/hr IV Q12H [facility] Last Admin: 01/30/24 10:50 Dose: 300 [...] 300 Units/3 Ml Insuln.Pen) 0 units SUBCUT TID..[facility]; Protocol Stop: 01/27/25 22:44 Last Admin: 01/30/24 12:52 Dose: 8 units Isosorbide Dinitrate (Isosorbide Dinitrate 20 Mg Tablet) 20 mg PO BID [facility] Stop: 01/28/25 08:59 Last Admin: 01/30/24 09:02 Dose: 20 mg Levothyroxine Sodium (Levothyroxine 50 Mcg Tablet) 50 mcg PO DAILY@0630 [facility] Stop: 01/29/25 06:29 Last Admin: 01/30/24 [...] 15 Gm Bottle) 1 applic TOPICAL QID [facility] Stop: 01/29/25 08:59 Last Admin: 01/30/24 [...] Cloudy A Urine pH 5.0 Ur Specific Malone 1.019 Urine Protein 100 H Urine Glucose [...] lower leg: Plan: Patient was admitted to [facility] recently with septic shock from cellulitis. [...] signed by Lia Law MD> 01/30/[address] [facility] Work Phone: 1([phone]) 850-823003-13-2024 Progress note Author Valentin Valle [facility] January 30, 2024 11:44am Note Date/Time January 30, 2024 11: 44am [facility] [address] [place] [address] Podiatry Progress Note Signed Patient: Adwoa Porter MR#: [id number] : 1955 Acct:[id number] Age/Sex: 68 / M Adm Date: 4 Loc: Room: [address] [place] [address] Type: ADM IN Attending Dr: Farhan Hudson [...] <Electronically signed by NELLY Valle> 01/30/[address] [facility] Work Phone: [phone]) 203-297503-13-2024 Progress note Author Farhan Schofield [facility] January 30, 2024 11:06am Note Date/Time January 30, 2024 11: 06am [facility] [address] [place] [address] Infect. Disease Progress Note Signed Patient: Adwoa Porter MR#: [id number] : 1955 Acct:[id number] Age/Sex: 68 / M Adm Date: 4 Loc: Room: [address] [place] [address] Type: ADM IN Attending Dr: Farhan Hudson [...] 5,000 Unit/Ml Vial) 5,000 unit SUBCUT Q8HR [facility] Stop: 01/27/25 21:59 Last Admin: 01/30/24 07:31 Dose: Not Given Heparin Sodium (Porcine) (Heparin 10,000 Unit/10 Ml Vial) 2,600 unit IV PRN PRN PRN Reason: Dialysis Stop: 01/28/25 14:06 Last Admin: 01/29/24 15:13 Dose: 2,600 unit Hydralazine HCl (Hydralazine 50 Mg Tablet) 50 mg PO TID [facility] Stop: 01/27/25 21:59 Last Admin: 01/30/24 09:02 Dose: 50 mg Ceftriaxone Sodium (Rocephin) 1 gm in 50 mls @ 100 mls/hr IV Q24H [facility] Last Admin: 01/29/24 21:13 Dose: 100 mls/hr Linezolid (Zyvox) 600 mg in 300 mls @ 300 mls/hr IV Q12H [facility] Last Admin: 01/30/24 10:50 Dose: 300 [...] Units/3 Ml Insuln.Pen) 0 units SUBCUT TID.WM.HS [facility]; Protocol Stop: 01/27/25 22:44 Last Admin: 01/30/24 09:02 Dose: 3 units Isosorbide Dinitrate (Isosorbide Dinitrate 20 Mg Tablet) 20 mg PO BID [facility] Stop: 01/28/25 08:59 Last Admin: 01/30/24 09:02 Dose: 20 mg Levothyroxine Sodium (Levothyroxine 50 Mcg Tablet) 50 mcg PO DAILY@0630 [facility] Stop: 01/29/25 06:29 Last Admin: 01/30/24 [...] RACHANA Stop: 01/29/25 08:59 Last Admin: 01/30/24 09:03 [...] now Documented By: Farhan Schofield MD 01/30/24 1102 Signed By: <Electronically signed by MD Farhan Schofield> 01/30/24 7124 [facility] Work Phone: 1(823) 419-700403-13-2024 Progress note Author Farhan Hudson [facility] January 29, 2024 11:06pm Note Date/Time January 29, 2024 11: 06pm [facility] [address] [place] [address] Hospitalist Progress Note Signed Patient: Adwoa Porter MR#: [id number] : 1955 Acct:[id number] Age/Sex: 68 / M Adm Date: 4 Loc: Room: [address] [place] [address] Type: ADM IN Attending Dr: Farhan Hudson [...] as above Documented By: Farhan Hudson DO 01/29/24 23 01 Signed By: <Electronically signed by Farhan Hudson DO> 01/29/[address] [facility] Work Phone: [phone]) 643-291103-12-2024 Consult note Author Valentin Valle [facility] January 29, 2024 7:19pm Note Date/Time January 29, 2024 6:1 0pm [facility] [address] [place] [address] Podiatry Consult Note Signed with Addenda Patient: Adwoa Porter MR#: [id number] : 1955 Acct:[id number] Age/Sex: 68 / M Adm Date: 4 Loc: Room: [address] [place] [address] Type: ADM IN Attending Dr: Farhan Hudson [...] in bed. Patient was transferred here from [facility] due to severe kidney diseaserequiring hemodialysis. Patient currently denies any history of nausea, vomiting, fever or chills. Patient was recently hospitalized for septic shock apparently 2 weeks ago at [facility]. Patient was seen by Dr. Farmer his fellows there for an abscess foot. They had done a wide I&D done to treat the abscess to foot. Patient was then sent to [facility] with orders for a wound VAC. Patient was seen by Dr. Arroyo about 2 weeks ago and was told that everything looked good. Patient again was sent to [facility] for his kidney disease and upon evaluation [...] Skin/Breast: Reports skin ulcer and Reports wounds [facility] Medical History (Updated 01/29/24 @ 18:01 by [...] tried to speak with Dr. 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 I did speak with his fellow that he is training, Dr. Herminio Souza ([phone]). Dr. Souza mentioned that they had to do an emergent I&D due to an abscess on the left foot. This happened on 01/17/2024. Patient was then discharged to [facility] with orders to begin for a wound VAC. Patient was placed on multiple antibiotic therapy ultimately he then was placed on amikacin. Due to abnormal lab work patient was sent to [facility] and then was transferred to [facility] for hemodialysis and kidney disease. Dr. Souza had mentioned that patient does have peripheral arterial disease and has a history of stents in hisleg. However, when questioning the patient about his [...] of time. When I spoke to Dr. Suoza he had mentioned that if the surgical [...] gangrene. Documented By: Valentin Valle DPM 01/29/24 1747 Signed By: <Electronically signed by NELLY Valle> 01/29/24 4379 [facility] Work Phone: 1(108) 875-676503-12-2024 Consult note Author Lia Law [facility] January 29, 2024 3:28pm Note Date/Time January 29, 2024 9:5 7am [facility] [address] [place] [address] Nephrology Consult Note Signed Patient: Adwoa Porter MR#: [id number] : 1955 Acct:[id number] Age/Sex: 68 / M Adm Date: 4 Loc: Room: [address] [place] [address] Type: ADM IN Attending Dr: Farhan Hudson [...] hypertension, COPD. Patient was admitted recently to [facility] for septic shock from cellulitis. Patient was stabilized and discharged to [facility] withamikacin and 2 other antibiotics. Lab at [facility] revealed SHIRA, hyperkalemia and hyponatremia and patient was sent to [facility]. Lab work this morning revealed potassium [...] systems: 12 system review is negative today [facility] Medical History (Updated 01/29/24 @ 15:21 by [...] 50 mls @ 100 mls/hr IV Q24H [facility] Last Admin: 01/28/24 22:57 Dose: 100 mls/hr Linezolid (Zyvox) 600 mg in 300 mls @ 300 mls/hr IV Q12H [facility] Last Admin: 01/28/24 23:39 Dose: 300 mls/hr Sodium Chloride (0.9% Sodium Chloride 1,000 Ml) 1,000 mls @ 100 mls/hr IV .[id number] Stop: 01/27/25 21:44 Last Admin: 01/28/24 23:37 Dose: 100 mls/hr Insulin Aspart (Insulin Aspart 300 Units/3 Ml Insuln.Pen) 0 units SUBCUT TID.WM.[facility]; Protocol Stop: 01/27/25 22:44 Last Admin: 01/29/24 09:04 Dose: 4 units Isosorbide Dinitrate (Isosorbide Dinitrate 20 Mg Tablet) 20 mg PO BID [facility] Stop: 01/28/25 08:59 Last Admin: 01/29/24 [...] lower leg: Plan: Patient was admitted to [facility] recently with septic shock from cellulitis. [...] <Electronically signed by Lia Law MD> 01/29/[address] [facility] Work Phone: [phone]) 291-730403-12-2024 [facility] Consult note Author Ching Loyola [facility] January 29, 2024 10:05am Note Date/Time January 29, 2024 9:4 5am [facility] [address] [place] [address] Infect. Disease Consult Note Signed Patient: Adwoa Porter MR#: [id number] : 1955 Acct:[id number] Age/Sex: 68 / M Adm Date: 4 Loc: Room: [address] [place] [address] Type: ADM IN Attending Dr: Farhan Hudson DO Copies to: Ching Loyola DO, RES DO Farhan Munoz MD Thomas R Conley, DO~ HPI Data of Consult Consult date: 01/29/24 Requesting Physician: Farhan Hudson DO Primary Care Provider: Vinnie Stewart DO Consult Narrative Reason for consult: Cellulitis History of present illness: Mr. Porter is a 68 year old male who was recently discharged from [facility] on January 22 to skilled care facility after treatment for septic shock secondary to cellulitis. He was discharged on amikacin and ceftriazone for polymicrobial growth and confirmed bone culture and was placed on a wound VAC. He was sent to the ED at [facility] by the [facility] care facility after he had abnormal labs [...] additionally received Rocephin and linezolid. CC: Farhan Hudson, Review of Systems Review of Systems Review of systems: A 10 point review of systems was performed and was negative unless noted below or in HPI. Constitutional Constitutional: Denies chills and Denies fever(s) Integumentary/Breasts Skin/Breast: Reports skin ulcer and Reports wounds [facility] Medical History (Updated 01/08/24 @ 05:35 by [...] 80 Mg Tablet) 80 mg PO DAILY [facility] Stop: 01/28/25 08:59 Last Admin: 01/29/24 09:03 Dose: 80 mg Carvedilol (Carvedilol 12.5 Mg Tablet) 12.5 mg PO BID [facility] Stop: 01/28/25 08:59 Last Admin: 01/29/24 09:03 Dose: 12.5 mg Heparin Sodium (Porcine) (Heparin 5,000 Unit/Ml Vial) 5,000 unit SUBCUT Q8HR [facility] Stop: 01/27/25 21:59 Last Admin: 01/29/24 06:36 Dose: Not Given Hydralazine HCl (Hydralazine 50 Mg Tablet) 50 mg PO TID [facility] Stop: 01/27/25 21:59 Last Admin: 01/29/24 09:03 Dose: 50 mg Ceftriaxone Sodium (Rocephin) 1 gm in 50 mls @ 100 mls/hr IV Q24H [facility] Last Admin: 01/28/24 22:57 Dose: 100 mls/hr Linezolid (Zyvox) 600 mg in 300 mls @ 300 mls/hr IV Q12H [facility] Last Admin: 01/28/24 23:39 Dose: 300 mls/hr Sodium Chloride (0.9% Sodium Chloride 1,000 Ml) 1,000 mls @ 100 mls/hr IV .[id number] Stop: 01/27/25 21:44 Last Admin: 01/28/24 23:37 Dose: 100 mls/hr Insulin Aspart (Insulin Aspart 300 Units/3 Ml Insuln.Pen) 0 units SUBCUT TID..[facility]; Protocol Stop: 01/27/25 22:44 Last Admin: 01/29/24 09:04 Dose: 4 units Isosorbide Dinitrate (Isosorbide Dinitrate 20 Mg Tablet) 20 mg PO BID [facility] Stop: 01/28/25 08:59 Last Admin: 01/29/24 [...] osteomyelitis based on bone culture when at [facility]. It is likely that his acute on chronic kidney injury is stemming from his recent antibiotic use specifically likely the amikacin. Cultures when they were taken were done at [facility] so I do not have these results at this time. I cannot exactly be sure specifically why amikacin was chosen but fingering due to resistance it was one of the few options available. Will reach out to [facility] to get sensitivities faxed up to us. [...] of care. Documented By: Ching Loyola DO, ROSALINDA 01/29/24 0937 Signed By: <Electronically signed by DO ROSALINDA Loyola> 01/29/24 1005 <Electronically signed by MD Farhan Schofield> 01/29/[address] [facility] Work Phone: 1(958) [phone] History and physical note Author Farhan Hudson [facility] January 28, 2024 9:17pm Note Date/Time January 28, 2024 8:3 0pm [facility] [address] [place] [address] Hospitalist H&P Signed Patient: Adwoa Porter MR#: [id number] : 1955 Acct:[id number] Age/Sex: 68 / M Adm Date: 4 Loc: Room: [address] [place] [address] Type: ADM IN Attending Dr: Farhan Hudson DO Copies to: DO Vinnie Munoz DO~ HPI DATE OF EXAMINATION: 01/28/24 CHIEF COMPLAINT: Abnormal labs HISTORY OF PRESENT ILLNESS: This patient is a 68-year-old male with a history of multiple medical comorbidities including systolic heart failure reported ejection fraction 10 to 15% and CKD stage III. He was recently hospitalized at [facility] and discharged January 22 to a skilled care facility after being treated for septic shock secondary to a cellulitis. He was discharged on IV antibiotic therapy includingamikacin for polymicrobial growth with a wound VAC and PICC line. He was sent to the emergency department today at [facility] for abnormal labs notably worsening kidney function. [...] possibly effusion. He was subsequently transferred to [facility] for nephrology consultation and further workup of [...] wound cultures need to be obtained from [place] and I will consult infectious disease given [...] negative unless noted below or in HPI [facility] Medical History (Updated 01/08/24 @ 05:35 by [...] 21 Signed By: <Electronically signed by Farhan Hudson DO> 01/28/24 [facility] Work Phone: [phone]) 340-580503-08-2024 NoteCoronary artery disease is stable with out Concerning symptoms Continue GDMT continue risk factor modifications- heart healthy diet, regular exercise as tolerated and continue all medications.[facility] 01-25-2024 NoteNYHC II-III currently he appears euvolemic [...] electrolytes- please maintain K+>4 and Mg > 2UnAkron [facility] 01-25-2024 NoteUTP CARDIOLOGY PROGRESS NOTE HPI: Adwoa Porter is a 68 y.o. male here for hospital F/U- [facility] HPI Pt presents today for hospital f/U after recent admit to [facility]. Known PMH HFrEF, CAD, a fib, LV thrombus, severe TV regurg. Denied chest pain, SOB, orthopnea, palpitations. States overall he is feeling well and only complaint is the antibiotic shot. He currently is living at a SNF after DC from hospital, receiving IV antibiotics via PICC line. Admit 01/15/24-01/23/24 Pt was admitted to [facility] for Sepsis- non healing DFU, Acute resp [...] with known h/o coronary artery disease with SEARCH DIRECTOR of the RCA and mild to moderate [...] with lunch, and with evening meal. HYDROcodone-acetaminophen (Monaca) 5-325 mg tablet Take 1 tablet by [...] movements intact. Conjunctiva/sclera: Conj (more content not included)...[facility]03-08-2024 NotePatient here for follow up [facility]. Bumex was stopped by Dr. Fournier upon discharge. Denies chest pain, SOB, palpitations lightheadedness/syncope, and bleeding on warfarin. Review of Systems Cardiovascular: Positive for leg swelling. Skin: Positive for poor wound healing. Musculoskeletal: Positive for muscle weakness. All other systems reviewed and are negative.[facility] 12-20-2023 Evaluation note* Encounter Date Diagnosis Assessment Notes Treatment Notes Treatment Clinical Notes Dec, Facet arthritis of lumbar region (ICD-10 - M46.96) [facility] Other 01-29-2024 Evaluation note* Encounter Date Diagnosis Assessment Notes Treatment Notes Treatment Clinical Notes Nov, Increased urinary frequency (ICD-10 - R35.0) [facility] Other 01-22-2024 Evaluation note* Encounter Date Diagnosis [...] a burger and a few fries from [employer] before he came here. He said that [...] and making changes by Shaw Rondon RN, [facility]. 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 failure w/hypoxia, acute on systolic chronic HF Medical History [facility]- r ight great toe bleeding (not stopping) Medical History pneumonia-[facility] 06-05 Medical History [facility]-7-2023 Medical History [id number]-[facility] Medical History NON RESPONSIVE X 2 IN THE LAST 6 WEEKS Surgical History Cardiac catherization (07/2010) Surgical History AICD insertion (11/2010) Surgical History right sided heart cath - [place] 10/2013 Surgical History appendectomy Surgical History rt [...] Hospitalization History rt. heart cath Rex Stout- [facility] 05/11/16 Hospitalization History Water retention/ [facility] 02/2017 Hospitalization History Observation-[facility] 11/2017 Hospitalization History INFECTION IN LEFT SMALL TOE AND FOOT 11/2018 Hospitalization History [facility] -- ICU -- COPD, SMAL L WOUND ON LEFT FOOT 12/2019 Hospitalization History COPD [facility] [place] 12/2019 Hospitalization History Ankle wound 01/2020 Hospitalization History COVID 11/2020 Hospitalization History A-FIB, CHF, KIDNEY ISSUE S 03/2021 [place] [facility] [place] Hospitalization History [facility] discha rged 03-27-2023 Hospitalization History [facility] x2 7-2 023 Hospitalization History [email or web address] 10- 023 Hospitalization History [facility] rib fx left Hospitalization History [facility] -pnemo jennifer [facility] Other 01-08-2024 NotePatient here for 2 mo follow up CHF, permanent afib, and CAD. He was admitted to [facility] last month for sepsis and pneumonia. He denies chest pain, SOB, and bleeding on warfarin. Doing well s/p hospital admission. Had follow up labs on 11/09/2023. Review of Systems Cardiovascular: Positive for leg swelling (L > R). Musculoskeletal: Positive for muscle weakness. All other systems reviewed and are negative.[facility] 11-26-2023 NoteUTP CARDIOLOGY PROGRESS NOTE HPI: Adwoa Porter is a 68 y.o. male here for HFrEF, CAD, a fib, LV thrombus, severe TV regurg. HPI 68 yo male with known h/o coronary artery disease with SEARCH DIRECTOR of the RCA and mild to moderate [...] afib, and CAD. He was admitted to [facility] last month for sepsis and pneumonia. [...] and are negative. Previous HPI per Dr Stout HPI Adwoa is seen in follow up. He is a 68 yo man with complex medical history. Prior medical history is significant for coronary artery disease with SEARCH DIRECTOR of the RCA and mild to moderate [...] October 2020. He was recently admitted to [facility] in August 2023 with acute respiratory [...] breath at rest. [facility] but he is now back home. [...] with lunch, and with evening meal. HYDROcodone-acetaminophen (Monaca) 5-325 mg tablet Take 1 tablet by [...] crush or chew. lucy (more content not included)...[facility] 11-26-2023 NoteRemains on warfarin Denied any bleeding tendencies voicedUniversMercy [facility] 11-26-2023 NoteMonitor with routine echoUnAkron Children's [facility] 11-26-2023 NoteDevice interrogation q 6 monthsUnAkron Children's Hospital01-08-2024 NoteContinue coreg AICD in placeUnAkron Children's Hospital01-08-2024 NoteRemains on statin [facility]01-08-2024 NoteHypertension is well controlled 113/71 Remains on Coreg, hydralazine, isordil, aldacotonUnAkron Children's Hospital01-08-2024 NoteNYHC IIIc- currently euvolemic without exacerbation Continue GDMT- ASA, lipitor, coreg, farxiga, digoxin, hydralazine, isordil, aldactone Diuretic therapy- bumex and metolazone= f/U with nephrology Monitor daily weights, I&O, fluid restriction 1.5-2L/day, renal function and electrolytes-[facility]01-08-2024 NoteRemains on GDMT [facility]01-08-2024 [id number]= 5- HTN, CHF, CAD, DM remainds on warfarin anticoagulation, DIgoxin and COregUnAkron Children's Hospital01-08-2024 NoteCoronary artery disease is stable Continue GDMT- ASA, lipitor, coreg continue risk factor modifications- heart healthy diet, regular exercise as tolerated and continue all medications.[facility] 11-22-2023 Evaluation note* Encounter Date Diagnosis Assessment [...] arthritis of lumbar region (ICD-10 - M46.96) [facility] Other 01-03-2024 Evaluation note* Encounter Date Diagnosis Assessment Notes Treatment Notes Treatment Clinical Notes Nov, Facet arthritis of lumbar region (ICD-10 - M46.96) [facility] Other 12-28-2023 Evaluation note* Encounter Date Diagnosis [...] continue follow-up with hematology as needed basis. 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 failure w/hypoxia, acute on systolic chronic HF Medical History [facility]- r ight great toe bleeding (not stopping) Medical History pneumonia-[facility] 06-05 Medical History [facility]-7-2023 Medical History [id number]-[facility] Surgical History Cardiac catherization (07/2010) Surgical [...] Hospitalization History rt. heart cath Rex Stout- [facility] 05/11/16 Hospitalization History Water retention/ [facility] 02/2017 Hospitalization History Observation-[facility] pital 11/2017 Hospitalization History INFECTION IN LEFT SMALL TOE AND FOOT 11/2018 Hospitalization History [facility] -- ICU -- COPD, SMAL L WOUND ON LEFT FOOT 12/2019 Hospitalization History COPD [facility] [place] 12/2019 Hospitalization History Ankle wound 01/2020 Hospitalization History COVID 11/2020 Hospitalization History A-FIB, CHF, KIDNEY ISSUE S 03/2021 [place] [facility] [place] Hospitalization History [facility] discha rged 03-27-2023 Hospitalization History [facility] x2 7-2 023 Hospitalization History [email or web address] 10-2 023 [facility] Other 12-19-2023 History general Narrative - Reported* [...] Medical History [facility] Medical History 04/28/2022 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 failure w/hypoxia, acute on systolic chronic HF Medical History [facility]- r ight great toe bleeding (not stopping) Medical History pneumonia-[facility] 06-05 Medical History [facility]-7-2023 Medical History [id number]-[facility] Surgical History Cardiac catherization (07/2010) Surgical [...] Hospitalization History rt. heart cath Rex Stout- [facility] 05/11/16 Hospitalization History Water retention/ [facility] 02/2017 Hospitalization History [facility] pitnd 11/2017 Hospitalization History INFECTION IN LEFT SMALL TOE AND FOOT 11/2018 Hospitalization History [facility] -- ICU -- COPD, SMAL L WOUND ON LEFT FOOT 12/2019 Hospitalization History COPD [facility] [place] 12/2019 Hospitalization History Ankle wound 01/2020 Hospitalization History COVID 11/2020 Hospitalization History A-FIB, CHF, KIDNEY ISSUE S 03/2021 [place] [facility] [place] Hospitalization History [facility] discha rged 03-27-2023 Hospitalization History [facility] x2 7-2 023 Hospitalization History RSV-[facility] 10-2 023 [facility] Other 12-08-2023 History general Narrative - Reported* [...] Medical History [facility] Medical History 04/28/2022 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 failure w/hypoxia, acute on systolic chronic HF Medical History [facility]- r ight great toe bleeding (not stopping) Medical History pneumonia-[facility] 06-05 Medical History [facility]-7-2023 Medical History [id number]-[facility] Surgical History Cardiac catherization (07/2010) Surgical History AICD insertion (11/2010) Surgical History right sided heart cath - [place] 10/2013 Surgical History appendectomy Surgical History rt [...] Hospitalization History rt. heart cath Rex Stout- [facility] 05/11/16 Hospitalization History Water retention/ [facility] 02/2017 Hospitalization History Observation-[facility] 11/2017 Hospitalization History INFECTION IN LEFT SMALL TOE AND FOOT 11/2018 Hospitalization History [facility] -- ICU -- COPD, SMAL L WOUND ON LEFT FOOT 12/2019 Hospitalization History COPD [facility] [place] 12/2019 Hospitalization History Ankle wound 01/2020 Hospitalization History COVID 11/2020 Hospitalization History A-FIB, CHF, KIDNEY ISSUE S 03/2021 Hospitalization History [facility] [place]23 Hospitalization History [facility] discha rged 03-27-2023 Hospitalization History [facility] x2 7-2 023 Hospitalization History [facility] [[email or web address] 10-2 023 [facility] Other 12-06-2023 History general Narrative - Reported* [...] Medical History [facility] Medical History 04/28/2022 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 failure w/hypoxia, acute on systolic chronic HF Medical History [facility]- r ight great toe bleeding (not stopping) Medical History pneumonia-[facility] 06-05 Medical History [facility]-7-2023 Medical History [id number]-[facility] Surgical History Cardiac catherization (07/2010) Surgical History AICD insertion (11/2010) Surgical History right sided heart cath - [place] 10/2013 Surgical History appendectomy Surgical History rt [...] Hospitalization History rt. heart cath Rex Stout- [facility] 05/11/16 Hospitalization History Water retention/ [facility] 02/2017 Hospitalization History Observation-[facility] 11/2017 Hospitalization History INFECTION IN LEFT SMALL TOE AND FOOT 11/2018 Hospitalization History [facility] -- ICU -- COPD, SMAL L WOUND ON LEFT FOOT 12/2019 Hospitalization History COPD [facility] [place] 12/2019 Hospitalization History Ankle wound 01/2020 Hospitalization History COVID 11/2020 Hospitalization History A-FIB, CHF, KIDNEY ISSUE S 03/2021 [place] [facility] [place] Hospitalization History [facility] discha rged 03-27-2023 Hospitalization History [facility] x2 7-2 023 Hospitalization History RSV-[facility] 10-2 023 [facility] [employer] Other 12-04-2023 Evaluation note* Encounter Date Diagnosis Assessment Notes Treatment Notes Treatment Clinical Notes Oct, Type 2 diabetes mellitus with hyperglycemia (ICD-10 - E11.65) [facility] [employer] Other 12-01-2023 Evaluation note* Encounter Date Diagnosis Assessment Notes Treatment Notes Treatment Clinical Notes Oct, Facet arthritis of lumbar region (ICD-10 - M46.96) [facility] [employer] Other 12-01-2023 History general Narrative - Reported* [...] Medical History [facility] Medical History 04/28/2022 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 failure w/hypoxia, acute on systolic chronic HF Medical History [facility]- r ight great toe bleeding (not stopping) Medical History pneumonia-[facility] 06-05 Medical History [facility]-7-2023 Medical History [id number]-[facility] Surgical History Cardiac catherization (07/2010) Surgical History AICD insertion (11/2010) Surgical History right sided heart cath - [place] 10/2013 Surgical History appendectomy Surgical History rt [...] History rt. heart cath D Addy Stout- [facility] 05/11/16 Hospitalization History Water retention/ [facility] 02/2017 Hospitalization History Observation-[facility] 11/2017 Hospitalization History INFECTION IN LEFT SMALL TOE AND FOOT 11/2018 Hospitalization History [facility] -- ICU -- COPD, SMAL L WOUND ON LEFT FOOT 12/2019 Hospitalization History COPD [facility] [place] 12/2019 Hospitalization History Ankle wound 01/2020 Hospitalization History COVID 11/2020 Hospitalization History A-FIB, CHF, KIDNEY ISSUE S 03/2021 Hospitalization [place] [facility] [place] Hospitalization History [facility] discha rged 03-27-2023 Hospitalization History [facility] x2 7-2 023 Hospitalization History [facility] 10-2 023 [facility] Other 11-20-2023 Evaluation note* Encounter Date Diagnosis [...] spent on education by Lashell KARIMI, RN [facility] Other 11-16-2023 Evaluation note* Encounter Date Diagnosis [...] able to help patient improve his glycemia. 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 failure w/hypoxia, acute on systolic chronic HF Medical History [facility]- r ight great toe bleeding (not stopping) Medical History pneumonia-[facility] 06-05 Medical History [facility]-7-2023 Medical History [id number]-[facility] Surgical History Cardiac catherization (07/2010) Surgical [...] Hospitalization History rt. heart cath Rex Stout- [facility] 05/11/16 Hospitalization History Water retention/ [facility] 02/2017 Hospitalization History [facility] pital 11/2017 Hospitalization History INFECTION IN LEFT SMALL TOE AND FOOT 11/2018 Hospitalization History [facility] -- ICU -- COPD, SMAL L WOUND ON LEFT FOOT 12/2019 Hospitalization History COPD [facility] [place] 12/2019 Hospitalization History Ankle wound 01/2020 Hospitalization History COVID 11/2020 Hospitalization History A-FIB, CHF, KIDNEY ISSUE S 03/2021 [place]ization History [facility] [place] Hospitalization History [facility] discha rged 03-27-2023 Hospitalization History [facility] x2 7-2 023 Hospitalization History [facility] 10-2 023 [facility] Other 11-03-2023 NoteUT Cardiology - [facility] Subjective Adwoa Porter is a 68 y.o. year old male patient being seen for Follow-up and Congestive Heart Failure Patient Active Problem List Diagnosis Anxiety state Atrial fibrillation (CMS/HCC) Chronic obstructive lung disease (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 He was recently admitted to [facility] in August 2023 with acute respiratory [...] breath at rest. [facility] but he is now back home. [...] distension. 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 failure w/hypoxia, acute on systolic chronic HF Medical History [facility]- r ight great toe bleeding (not stopping) Medical History pneumonia-[facility] 06-05 Medical History [facility]-7-2023 Medical History [id number]-[facility] Surgical History Cardiac catherization (07/2010) Surgical History AICD insertion (11/2010) Surgical History right sided heart cath - [place] 10/2013 Surgical History appendectomy Surgical History rt [...] Hospitalization History rt. heart cath Rex Stout- [facility] 05/11/16 Hospitalization History Water retention/ [facility] 02/2017 Hospitalization History [facility] 11/2017 Hospitalization History INFECTION IN LEFT SMALL TOE AND FOOT 11/2018 Hospitalization History [facility] -- ICU -- COPD, SMAL L WOUND ON LEFT FOOT 12/2019 Hospitalization History COPD [facility] [place] 12/2019 Hospitalization History Ankle wound 01/2020 Hospitalization History COVID 11/2020 Hospitalization History A-FIB, CHF, KIDNEY ISSUE S 03/2021 Hospitalization [place] [facility] [place] Hospitalization History [facility] discha rged 03-27-2023 Hospitalization History [facility] x2 7-2 023 Hospitalization History [email or web address] 10-2 023 [facility] Other 10-31-2023 Evaluation note* Encounter Date Diagnosis [...] (hypertension) (ICD-10 - I10) reasonable today Aug, jail current use of insulin (ICD-10 - Z79.4) Aug, Vitamin B 12 deficiency (ICD-10 - E53.8) Aug, CKD (chronic kidney disease) stage 3, GFR 30-59 ml/min (ICD-10 - N18.3) keep f/u with nephrology Aug, Type 2 diabetes mellitus with diabetic neuropathy, unspecified (ICD-10 - E11.40) Aug, BMI 32.0-32.9,adult (ICD-10 - Z68.32) [facility] Other 10-31-2023 History general Narrative - Reported* [...] Medical History V[facility]IGO Medical History 04/28/2022 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 failure w/hypoxia, acute on systolic chronic HF Medical History [facility]- r ight great toe bleeding (not stopping) Medical History pneumonia-[facility] 06-05 Medical History [facility]-7-2023 Medical History [id number]-[facility] Surgical History Cardiac catherization (07/2010) Surgical [...] Hospitalization History rt. heart cath Rex Stout- [facility] 05/11/16 Hospitalization History Water retention/ [facility] 02/2017 Hospitalization History Observation-[facility] pitnd 11/2017 Hospitalization History INFECTION IN LEFT SMALL TOE AND FOOT 11/2018 Hospitalization History [facility] -- ICU -- COPD, SMAL L WOUND ON LEFT FOOT 12/2019 Hospitalization History COPD [facility] [place] 12/2019 Hospitalization History Ankle wound 01/2020 Hospitalization History COVID 11/2020 Hospitalization History A-FIB, CHF, KIDNEY ISSUE S 03/2021 [place] [facility] [place] Hospitalization History [facility] discha rged 03-27-2023 Hospitalization History [facility] x2 [phone] Hospitalization History [email or web address] 10-2 023 [facility] [employer] Other 10-30-2023 Evaluation note* Encounter Date Diagnosis Assessment Notes Treatment Notes Treatment Clinical Notes Aug, Facet arthritis of lumbar region (ICD-10 - M46.96) [facility] [address] Other 10-13-2023 History general Narrative - Reported* [...] Medical History [facility] Medical History 04/28/2022 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 failure w/hypoxia, acute on systolic chronic HF Medical History [facility]- r ight great toe bleeding (not stopping) Medical History pneumonia-[facility] 06-05 Medical History [facility]-7-2023 Surgical History Cardiac catherization (07/2010) Surgical History AICD insertion (11/2010) Surgical History right sided heart cath - [place] 10/2013 Surgical History appendectomy Surgical History rt heart cath 05/11/16 Surgical History pacemaker 07/2016 Surgical History SKIN GRAFT-FROM LEFT LEG TO LEF T FOOT 10/2018 Surgical History LEFT SMALL TOE AMPUTATION WITH SOME FOOT BONE 11/2018 Surgical History COLONOSCOPY AND EGD [facility] Surgical History amputation left fifth toe Surgical History Ankle I/D LEFT 01/2020 Surgical History Left heel skin graft 03/29/2020 Surgical History SKIN GRAFT TO LEFT FOOT 03/2020 Surgical History CATARACT REMOVED ON RIGHT EYE Surgical History CATARACT REMOVED FROM LEFT EYE 06/2021 Hospitalization History see surgical hx Hospitalization History rt. heart cath Rex Stout- [facility] 05/11/16 Hospitalization History Water retention/ [facility] 02/2017 Hospitalization History Observation-[facility] 11/2017 Hospitalization History INFECTION IN LEFT SMALL TOE AND FOOT 11/2018 Hospitalization History [facility] -- ICU -- COPD, SMAL L WOUND ON LEFT FOOT 12/2019 Hospitalization History COPD [facility] [place] 12/2019 Hospitalization History Ankle wound 01/2020 Hospitalization History COVID 11/2020 Hospitalization History A-FIB, CHF, KIDNEY ISSUE S 03/2021 [place] [facility] [place] Hospitalization History [facility] discha rged 03-27-2023 Hospitalization History [facility] x2 [phone] [employer] Other 10-12-2023 History general Narrative - Reported* [...] Medical History [facility] Medical History 04/28/2022 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 failure w/hypoxia, acute on systolic chronic HF Medical History [facility]- r ight great toe bleeding (not stopping) Medical History pneumonia-[facility] - Medical History [facility]-7-2023 Surgical History Cardiac catherization (07/2010) Surgical History AICD insertion (11/2010) Surgical History right sided heart cath - [place] 10/2013 Surgical History appendectomy Surgical History rt [...] Hospitalization History rt. heart cath Rex Stout- [facility] 05/11/16 Hospitalization History Water retention/ [facility] 02/2017 Hospitalization History [facility] 11/2017 Hospitalization History INFECTION IN LEFT SMALL TOE AND FOOT 11/2018 Hospitalization History [facility] -- ICU -- COPD, SMAL L WOUND ON LEFT FOOT 12/2019 Hospitalization History COPD [facility] [place] 12/2019 Hospitalization History Ankle wound 01/2020 Hospitalization History COVID 11/2020 Hospitalization History A-FIB, CHF, KIDNEY ISSUE S 03/2021 [place] [facility] [place] Hospitalization History [facility] discha rged 03-27-2023 Hospitalization History [facility] x2 [phone] [employer] Other 10-05-20[facility]23-[facility]23 NotePatient here for follow [...] weakness. All other systems reviewed and are negative.[facility] 08-23-2023 NoteCardiovascular Medicine [facility] SUBJECTIVE Chief Complaint Patient presents with Wheezing Hospital Follow-up Adwoa Porter is a 68 y.o. male here for follow-up. Congestive Heart Failure His past medical history is significant for CAD. Coronary Artery Disease His past medical history is significant for CHF. Adwoa Porter is a 67 y.o. 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 Patient here for follow up [facility] discharge yesterday for HFrEF. His girlfriend called the office yesterday when he was being discharged to make us aware that he's still very swollen and SOB. He is down 12# from his office visit last week with Cecile Watson. Patient is c/o wheezing and is requesting something for cough. 08/23/2023 He was recently admitted to [facility] for acute on chronic HFrEF exacerbation [...] Conduction disorder of the heart Atherosclerosis of [place] coronary artery of [place] heart without angina pectoris Type 2 diabetes [...] of lesser toe of left foot (CMS/HCC) jail (current) use of anticoagulants Iron deficiency anemia Hyperglycemia due to type 2 diabetes mellitus (CMS/HCC) Past Medical History: Diagnosis Date Anxiety Atrial fibrillation (CMS/HCC) Cardiomyopathy (CMS/HCC) CHF (congestive heart failure) ([facility]/HCC) Chronic kidney disease COPD (chronic obstructive pulmonary disease) (CMS/HCC) Coronary artery disease Diabetes mellitus ([facility]) High cholesterol Hyperlipidemia Hypertension Family History Problem [...] (5' 9 ) Wt (more content not included)...[facility]10-05-2023 Evaluation note* Encounter Date Diagnosis Assessment Notes Treatment Notes Treatment Clinical Notes Aug, Facet arthritis of lumbar region (ICD-10 - M46.96) [facility] Other 09-27-2023 NoteCurrently stable*[facility]09-27-2023 NoteSending for labs today and pt to f/U with Dr Orr as scheduledUnAk[facility]09-27-2023 NoteNYHC- III Continue GDMT- ASA, lipitor, [...] bmp and BNP F/U with nephrology as scheduledUnAkron [facility]09-27-2023 NoteContinue Coreg- currently stable and no concerning symptomsUnAkron Children's Hospital09-27-2023 NoteUTP CARDIOLOGY PROGRESS NOTE HPI: Adwoa [...] to afford Farxiga. He was admitted to [facility] last week for hemoptysis. This has [...] reviewed and are negative. Recent eval in [facility] ED 07/31/23 Visit Vitals BP 121/79 [...] with lunch, and with evening meal. HYDROcodone-acetaminophen ([place]) 5-325 mg tablet Take 1 tablet by [...] Pulmonary: Effort: Pulmonary effo (more content not included)...[facility]09-27-2023 NotePatient here for follow up lasix increase. Dr. Stout increased it to 140mg bid a few days ago. He has taken 3 doses of this so far and feels so much better. He is unable to afford Farxiga. He was admitted to [facility] last week for hemoptysis. This has [...] weakness. 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 failure w/hypoxia, acute on systolic chronic HF Medical History [facility]- r ight great toe bleeding (not stopping) Medical History pneumonia-[facility] - Medical History [facility]-7-2023 Surgical History Cardiac catherization (07/2010) Surgical History AICD insertion (11/2010) Surgical History right sided heart cath - [place] 10/2013 Surgical History appendectomy Surgical History rt [...] Hospitalization History rt. heart cath Rex Stout- [facility] 05/11/16 Hospitalization History Water retention/ [facility] 02/2017 Hospitalization History [facility] 11/2017 Hospitalization History INFECTION IN LEFT SMALL TOE AND FOOT 11/2018 Hospitalization History [facility] -- ICU -- COPD, SMAL L WOUND ON LEFT FOOT 12/2019 Hospitalization History COPD [facility] [place] 12/2019 Hospitalization History Ankle wound 01/2020 Hospitalization History COVID 11/2020 Hospitalization History A-FIB, CHF, KIDNEY ISSUE S 03/2021 [place] [facility] [place] Hospitalization History [facility] discha rged 03-27-2023 Hospitalization History [facility] x2 [phone] [facility] [employer] Other 09-08-2023 Evaluation note* Encounter Date Diagnosis Assessment Notes Treatment Notes Treatment Clinical Notes Jul, Acute cough (ICD-10 - R05.1) [facility] Other 09-08-2023 History general Narrative - Reported* [...] Medical History [facility] Medical History 04/28/2022 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 failure w/hypoxia, acute on systolic chronic HF Medical History [facility]- r ight great toe bleeding (not stopping) Medical History pneumonia-[facility] 06-05 Medical History [facility]-7-2023 Surgical History Cardiac catherization (07/2010) Surgical [...] Hospitalization History rt. heart cath Rex Stout- [facility] 05/11/16 Hospitalization History Water retention/ [facility] 02/2017 Hospitalization History [facility] pital 11/2017 Hospitalization History INFECTION IN LEFT SMALL TOE AND FOOT 11/2018 Hospitalization History [facility] -- ICU -- COPD, SMAL L WOUND ON LEFT FOOT 12/2019 Hospitalization History COPD [facility] [place] 12/2019 Hospitalization History Ankle wound 01/2020 Hospitalization History COVID 11/2020 Hospitalization History A-FIB, CHF, KIDNEY ISSUE S 03/2021 [place]ization History [facility] [place]23 Hospitalization History [facility] discha rged 03-27-2023 Hospitalization History [facility] x2 [phone] [employer] Other 09-01-2023 Evaluation note* Encounter Date Diagnosis Assessment Notes Treatment Notes Treatment Clinical Notes Jul, Facet arthritis of lumbar region (ICD-10 - M46.96) [employer] Other 09-01-2023 History general Narrative - Reported* [...] Medical History [facility] Medical History 04/28/2022 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 failure w/hypoxia, acute on systolic chronic HF Medical History [facility]- r ight great toe bleeding (not stopping) Medical History pneumonia-[facility] 06-05 Medical History [facility]-7-2023 Surgical History Cardiac catherization (07/2010) Surgical [...] Hospitalization History rt. heart cath Rex Stout- [facility] 05/11/16 Hospitalization History Water retention/ [facility] 02/2017 Hospitalization History [facility] 11/2017 Hospitalization History INFECTION IN LEFT SMALL TOE AND FOOT 11/2018 Hospitalization History [facility] -- ICU -- COPD, SMAL L WOUND ON LEFT FOOT 12/2019 Hospitalization History COPD [facility] [place] 12/2019 Hospitalization History Ankle wound 01/2020 Hospitalization History COVID 11/2020 Hospitalization History A-FIB, CHF, KIDNEY ISSUE S 03/2021 Hospitalization History [facility] [place]23 Hospitalization History [facility] discha rged 03-27-2023 Hospitalization History [facility] x2 [phone] [employer] Other 08-31-2023 Evaluation note* Encounter Date Diagnosis Assessment Notes Treatment Notes Treatment Clinical Notes Jun, Chronic systolic congestive heart failure (ICD-10 - I50.22) [employer] Other 08-24-2023 History general Narrative - Reported* [...] Medical History [facility] Medical History 04/28/2022 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 failure w/hypoxia, acute on systolic chronic HF Medical History [facility]- r ight great toe bleeding (not stopping) Medical History pneumonia-[facility] 06-05 Medical History [facility]-7-2023 Surgical History Cardiac catherization (07/2010) Surgical History AICD insertion (11/2010) Surgical History right sided heart cath - [place] 10/2013 Surgical History appendectomy Surgical History rt [...] Hospitalization History rt. heart cath Rex Stout- [facility] 05/11/16 Hospitalization History Water retention/ [facility] 02/2017 Hospitalization History [facility] 11/2017 Hospitalization History INFECTION IN LEFT SMALL TOE AND FOOT 11/2018 Hospitalization History [facility] -- ICU -- COPD, SMAL L WOUND ON LEFT FOOT 12/2019 Hospitalization History COPD [facility] [place] 12/2019 Hospitalization History Ankle wound 01/2020 Hospitalization History COVID 11/2020 Hospitalization History A-FIB, CHF, KIDNEY ISSUE S 03/2021 Hospitalization History [facility] [place]23 Hospitalization History [facility] discha rged 03-27-2023 Hospitalization History [facility] x2 [phone] [employer] Other 08-11-2023 Evaluation note* Encounter Date Diagnosis [...] of this is related to diabetic neuropathy [employer] Other 08-11-2023 Evaluation note* Encounter Date Diagnosis [...] (hypertension) (ICD-10 - I10) reasonable today Jun, jail current use of insulin (ICD-10 - Z79.4) Jun, Vitamin B 12 deficiency (ICD-10 - E53.8) Jun, CKD (chronic kidney disease) stage 3, GFR 30-59 ml/min (ICD-10 - N18.3) keep f/u with nephrology Jun, Type 2 diabetes mellitus with diabetic neuropathy, unspecified (ICD-10 - E11.40) Jun, BMI 32.0-32.9,adult (ICD-10 - Z68.32) [facility] Other 08-11-2023 History general Narrative - Reported* [...] Medical History [facility] Medical History 04/28/2022 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 failure w/hypoxia, acute on systolic chronic HF Medical History [facility]- r ight great toe bleeding (not stopping) Medical History pneumonia-[facility] 06-05 Medical History [facility]-7-2023 Surgical History Cardiac catherization (07/2010) Surgical History AICD insertion (11/2010) Surgical History right sided heart cath - [place] 10/2013 Surgical History appendectomy Surgical History rt [...] Hospitalization History rt. heart cath Rex Stout- [facility] 05/11/16 Hospitalization History Water retention/ [facility] 02/2017 Hospitalization History [facility] 11/2017 Hospitalization History INFECTION IN LEFT SMALL TOE AND FOOT 11/2018 Hospitalization History [facility] -- ICU -- COPD, SMAL L WOUND ON LEFT FOOT 12/2019 Hospitalization History COPD [facility] [place] 12/2019 Hospitalization History Ankle wound 01/2020 Hospitalization History COVID 11/2020 Hospitalization History A-FIB, CHF, KIDNEY ISSUE S 03/2021 Hospitalization History [facility] [place] Hospitalization History [facility] discha rged 03-27-2023 Hospitalization History [facility] x2 [phone] [employer] Other 07-31-2023 Evaluation note* Encounter Date Diagnosis [...] not be able to stay at home [employer] Other 07-31-2023 History general Narrative - Reported* [...] Medical History [facility] Medical History 04/28/2022 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 failure w/hypoxia, acute on systolic chronic HF Medical History [facility]- r ight great toe bleeding [...] History rt. heart cath D Addy Stout- [facility] 05/11/16 Hospitalization History Water retention/ [facility] 02/2017 Hospitalization History [facility] 11/2017 Hospitalization History INFECTION IN LEFT SMALL TOE AND FOOT 11/2018 Hospitalization History [facility] -- ICU -- COPD, SMAL L WOUND ON LEFT FOOT 12/2019 Hospitalization History COPD [facility] [place] 12/2019 Hospitalization History Ankle wound 01/2020 Hospitalization History COVID 11/2020 Hospitalization History A-FIB, CHF, KIDNEY ISSUE S 03/2021 Hospitalization History [facility] [place]23 Hospitalization History [facility] discha rged 03-27-2023 [facility] Other 07-18-2023 NoteUT Cardiology - [facility] Subjective Adwoa Porter is a 67 y.o. year old male patient being seen for Follow-up Patient Active Problem List Diagnosis Anxiety state Atrial fibrillation (CMS/HCC) Chronic obstructive lung disease (CMS/HCC) Chronic systolic congestive heart failure (CMS/HCC) Conduction disorder of the heart Atherosclerosis of [place] coronary artery of [place] heart without angina pectoris Type 2 diabetes mellitus with diabetic peripheral angiopathy without gangrene, with long-term current use of insulin (CMS/HCC) Dyspnea Mixed hyperlipidemia Implantable cardioverter-defibrillator (ICD) in situ Obesity Palpitations Paroxysmal ventricular tachycardia (CMS/HCC) Raised prostate specific antigen Renal function test abnormal Uncontrolled type 2 diabetes mellitus Upper respiratory infection Stage 3b chronic kidney disease ([facility]/HCC) ISAK on CPAP PVD (peripheral vascular disease) ([facility]) Osteomyelitis of left foot ([facility]) Open wound of finger Cellulitis of left upper extremity Abdominal tenderness Acute on chronic respiratory failure ([facility]) Benign prostatic hyperplasia with urinary obstruction Cardiomyopathy, ischemic Former smoker Heart murmur Incomplete emptying of bladder Increased frequency of urination Nocturia Urethral stricture Urge incontinence of urine Urinary urgency Type 2 diabetes mellitus without complication ([facility]) Family History Problem Relation Name Age of Onset Diabetes Mother Hypertension Mother Coronary artery disease Mother Social History Tobacco Use Smoking status: Every Day Types: Cigarettes Passive exposure: Never Smokeless tobacco: Never Vaping Use Vaping Use: Never used Substance Use Topics Alcohol use: Never Drug use: Not Currently HPI Adwoa is seen in follow-up after recent admission to the [facility] with decompensated heart failure. He [...] is significant for coronary artery disease with SEARCH DIRECTOR of the RCA and mild to moderate [...] with us he was admitted to the [facility] twice with decompensated heart failure. 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 failure w/hypoxia, acute on systolic chronic HF Medical History [facility]- r ight great toe bleeding [...] Hospitalization History rt. heart cath Rex Stout- [facility] 05/11/16 Hospitalization History Water retention/ [facility] 02/2017 Hospitalization History [facility] 11/2017 Hospitalization History INFECTION IN LEFT SMALL TOE AND FOOT 11/2018 Hospitalization History [facility] -- ICU -- COPD, SMAL L WOUND ON LEFT FOOT 12/2019 Hospitalization History COPD [facility] [place] 12/2019 Hospitalization History Ankle wound 01/2020 Hospitalization History COVID 11/2020 Hospitalization History A-FIB, CHF, KIDNEY ISSUE S 03/2021 [place] [facility] [place] Hospitalization History [facility] discha rged 03-27-2023 [facility] Other 2023 History general Narrative - Reported* [...] Medical History [facility] Medical History 04/28/2022 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 failure w/hypoxia, acute on systolic chronic HF Medical History [facility]- r ight great toe bleeding (not stopping) Surgical History Cardiac catherization (07/2010) Surgical History AICD insertion (11/2010) Surgical History right sided heart cath - [place] 10/2013 Surgical History appendectomy Surgical History rt [...] Hospitalization History rt. heart cath Rex Stout- [facility] 05/11/16 Hospitalization History Water retention/ [facility] 02/2017 Hospitalization History [facility] 11/2017 Hospitalization History INFECTION IN LEFT SMALL TOE AND FOOT 11/2018 Hospitalization History [facility] -- ICU -- COPD, SMAL L WOUND ON LEFT FOOT 12/2019 Hospitalization History COPD [facility] [place] 12/2019 Hospitalization History Ankle wound 01/2020 Hospitalization History COVID 11/2020 Hospitalization History A-FIB, CHF, KIDNEY ISSUE S 03/2021 [place] History [facility] [place] Hospitalization History [facility] discha rged 03-27-2023 [facility] Other 06-14-2023 Evaluation note* Encounter Date Diagnosis [...] sensors on. He was given 6 grif coil taper to assist him with wearing the device. 45 minutes were spent evaluating the patient's report and discussing its findings with the patient by Shaw Rondon RN, [facility]. [facility] Other 06-01-2023 Evaluation note* Encounter Date Diagnosis [...] leukocytosis and currently follows with a hematology. [facility] Other 06-01-2023 Evaluation note* Encounter Date Diagnosis [...] understanding and is agreeable with treatment plan. [facility] Other 05-31-2023 Evaluation note* Encounter Date Diagnosis Assessment Notes Treatment Notes Treatment Clinical Notes March, Facet arthritis of lumbar region (ICD-10 - M46.96) [facility] Other 05-15-2023 History general Narrative - Reported* [...] Medical History [facility] Medical History 04/28/2022 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 heart cath Rex Stout- [facility] 05/11/16 Hospitalization History Water retention/ [facility] 02/2017 Hospitalization History [facility] 11/2017 Hospitalization History INFECTION IN LEFT SMALL TOE AND FOOT 11/2018 Hospitalization History [facility] -- ICU -- COPD, SMAL L WOUND ON LEFT FOOT 12/2019 Hospitalization History COPD [facility] [place] 12/2019 Hospitalization History Ankle wound 01/2020 Hospitalization History COVID 11/2020 Hospitalization History A-FIB, CHF, KIDNEY ISSUE S 03/2021 Hospitalization History [facility] [place]/2023 [facility] Other 05-03-2023 NoteCardiology Clinic Note Subjective Adwoa [...] Conduction disorder of the heart Atherosclerosis of [place] coronary artery of [place] heart without angina pectoris Type 2 diabetes [...] in follow-up after recent admission to the [facility] with decompensated heart failure. He [...] is significant for coronary artery disease with SEARCH DIRECTOR of the RCA and mild to moderate [...] tablet, Rfl: 2 digoxin (more content not included)...[facility] 03-21-2023 NotePatient here for 6 week follow [...] weakness. 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 heart cath Rex Stout- [facility] 05/11/16 Hospitalization History Water retention/ [facility] 02/2017 Hospitalization History [facility] 11/2017 Hospitalization History INFECTION IN LEFT SMALL TOE AND FOOT 11/2018 Hospitalization History [facility] -- ICU -- COPD, SMAL L WOUND ON LEFT FOOT 12/2019 Hospitalization History COPD [facility] [place] 12/2019 Hospitalization History Ankle wound 01/2020 Hospitalization History COVID 11/2020 Hospitalization History A-FIB, CHF, KIDNEY ISSUE S 03/2021 Hospitalization History [facility] [place]/2023 [facility] Other 05-01-2023 Evaluation note* Encounter Date Diagnosis Assessment Notes Treatment Notes Treatment Clinical Notes March, Facet arthritis of lumbar region (ICD-10 - M46.96) [facility] Other 05-01-2023 History general Narrative - Reported* [...] Medical History [facility] Medical History 04/28/2022 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 failure w/hypoxia, acute on systolic chronic HF Surgical History Cardiac catherization (07/2010) Surgical History AICD insertion (11/2010) Surgical History right sided heart cath - [place] 10/2013 Surgical History appendectomy Surgical History rt [...] Hospitalization History rt. heart cath Rex Stout- [facility] 05/11/16 Hospitalization History Water retention/ [facility] 02/2017 Hospitalization History [facility] 11/2017 Hospitalization History INFECTION IN LEFT SMALL TOE AND FOOT 11/2018 Hospitalization History [facility] -- ICU -- COPD, SMAL L WOUND ON LEFT FOOT 12/2019 Hospitalization History COPD [facility] [place] 12/2019 Hospitalization History Ankle wound 01/2020 Hospitalization History COVID 11/2020 Hospitalization History A-FIB, CHF, KIDNEY ISSUE S 03/2021 Hospitalization History [facility] [place]/2023 [facility] Other 04-12-2023 History general Narrative - Reported* [...] Medical History [facility] Medical History 04/28/2022 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 heart cath Rex Stout- [facility] 05/11/16 Hospitalization History Water retention/ [facility] 02/2017 Hospitalization History [facility] 11/2017 Hospitalization History INFECTION IN LEFT SMALL TOE AND FOOT 11/2018 Hospitalization History [facility] -- ICU -- COPD, SMAL L WOUND ON LEFT FOOT 12/2019 Hospitalization History COPD [facility] [place] 12/2019 Hospitalization History Ankle wound 01/2020 Hospitalization History COVID 11/2020 Hospitalization History A-FIB, CHF, KIDNEY ISSUE S 03/2021 Hospitalization History [facility] [place]/2023 [facility] Other 04-11-2023 History general Narrative - Reported* [...] Medical History [facility] Medical History 04/28/2022 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 heart cath Rex Stout- [facility] 05/11/16 Hospitalization History Water retention/ [facility] 02/2017 Hospitalization History [facility] 11/2017 Hospitalization History INFECTION IN LEFT SMALL TOE AND FOOT 11/2018 Hospitalization History [facility] -- ICU -- COPD, SMAL L WOUND ON LEFT FOOT 12/2019 Hospitalization History COPD [facility] [place] 12/2019 Hospitalization History Ankle wound 01/2020 Hospitalization History COVID 11/2020 Hospitalization History A-FIB, CHF, KIDNEY ISSUE S 03/2021 Hospitalization History [facility] [place]/2023 [facility] Other 04-05-2023 Evaluation note* Encounter Date Diagnosis [...] - N18.30) Feb, Hypokalemia (ICD-10 - E87.6) [facility] Other 03-24-2023 Evaluation note* Encounter Date Diagnosis [...] failure so a printed prescription was provided [facility] Other 03-13-2023 NoteUT Cardiology - [facility] Subjective Adwoa Porter is a 67 y.o. year old male patient being seen for follow up [facility] for CHF. He is down 30# since last office visit on 01/05/2023. He is feeling much better since discharge. He is now taking metolazone once a week. Bumex was switched to furosemide. Patient Active Problem List Diagnosis Anxiety state Atrial fibrillation (CMS/HCC) Chronic obstructive lung disease (CMS/HCC) Chronic systolic congestive heart failure (CMS/HCC) Conduction disorder of the heart Atherosclerosis of [place] coronary artery of [place] heart without angina pectoris Type 2 diabetes [...] in follow-up after recent admission to the [facility] with decompensated heart failure. He [...] is significant for coronary artery disease with SEARCH DIRECTOR of the RCA and mild to moderate [...] Reactions Lupis Inhibitors Medicatio (more content not included)...[facility] 01-17-2023 Evaluation note* Encounter Date Diagnosis Assessment [...] - M46.96) Continue current medication, OARRS reviewed [facility] Other 02-28-2023 Evaluation note* Encounter Date Diagnosis Assessment Notes Treatment Notes Treatment Clinical Notes Dec, Lumbar and sacral arthritis (ICD-10 - M48.9) [facility] Other 02-24-2023 History general Narrative - Reported* [...] Medical History [facility] Medical History 04/28/2022 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 failure w/hypoxia, acute on systolic chronic HF Surgical History Cardiac catherization (07/2010) Surgical History AICD insertion (11/2010) Surgical History right sided heart cath - [place] 10/2013 Surgical History appendectomy Surgical History rt heart cath 05/11/16 Surgical History pacemaker 07/2016 Surgical History SKIN GRAFT-FROM LEFT LEG TO LEF T FOOT 10/2018 Surgical History LEFT SMALL TOE AMPUTATION WITH SOME FOOT BONE 11/2018 Surgical History COLONOSCOPY AND EGD [facility] Surgical History amputation left fifth toe Surgical History Ankle I/D LEFT 01/2020 Surgical History Left heel skin graft 03/29/2020 Surgical History SKIN GRAFT TO LEFT FOOT 03/2020 Surgical History CATARACT REMOVED ON RIGHT EYE Surgical History CATARACT REMOVED FROM LEFT EYE 06/2021 Hospitalization History see surgical hx Hospitalization History rt. heart cath Rex Stout- [facility] 05/11/16 Hospitalization History Water retention/ [facility] 02/2017 Hospitalization History [facility] 11/2017 Hospitalization History INFECTION IN LEFT SMALL TOE AND FOOT 11/2018 Hospitalization History [facility] -- ICU -- COPD, SMAL L WOUND ON LEFT FOOT 12/2019 Hospitalization History COPD [facility] [place] 12/2019 Hospitalization History Ankle wound 01/2020 Hospitalization History COVID 11/2020 Hospitalization History A-FIB, CHF, KIDNEY ISSUE S 03/2021 [facility] Other 02-23-2023 History general Narrative - Reported* [...] Medical History [facility] Medical History 04/28/2022 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 heart cath Rex Stout- [facility] 05/11/16 Hospitalization History Water retention/ [facility] 02/2017 Hospitalization History [facility] 11/2017 Hospitalization History INFECTION IN LEFT SMALL TOE AND FOOT 11/2018 Hospitalization History [facility] -- ICU -- COPD, SMAL L WOUND ON LEFT FOOT 12/2019 Hospitalization History COPD [facility] [place] 12/2019 Hospitalization History Ankle wound 01/2020 Hospitalization History COVID 11/2020 Hospitalization History A-FIB, CHF, KIDNEY ISSUE S 03/2021 [facility] Other 02-18-2023 History general Narrative - Reported* [...] Medical History [facility] Medical History 04/28/2022 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 failure w/hypoxia, acute on systolic chronic HF Surgical History Cardiac catherization (07/2010) Surgical History AICD insertion (11/2010) Surgical History right sided heart cath - [place] 10/2013 Surgical History appendectomy Surgical History rt [...] Hospitalization History rt. heart cath Rex Stout- [facility] 05/11/16 Hospitalization History Water retention/ [facility] 02/2017 Hospitalization History [facility] 11/2017 Hospitalization History INFECTION IN LEFT SMALL TOE AND FOOT 11/2018 Hospitalization History [facility] -- ICU -- COPD, SMAL L WOUND ON LEFT FOOT 12/2019 Hospitalization History COPD [facility] [place] 12/2019 Hospitalization History Ankle wound 01/2020 Hospitalization History COVID 11/2020 Hospitalization History A-FIB, CHF, KIDNEY ISSUE S 03/2021 [facility] Other 02-13-2023 History general Narrative - Reported* [...] Medical History [facility] Medical History 04/28/2022 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 heart cath Rex Stout- [facility] 05/11/16 Hospitalization History Water retention/ [facility] 02/2017 Hospitalization History [facility] 11/2017 Hospitalization History INFECTION IN LEFT SMALL TOE AND FOOT 11/2018 Hospitalization History [facility] -- ICU -- COPD, SMAL L WOUND ON LEFT FOOT 12/2019 Hospitalization History COPD [facility] [place] 12/2019 Hospitalization History Ankle wound 01/2020 Hospitalization History COVID 11/2020 Hospitalization History A-FIB, CHF, KIDNEY ISSUE S 03/2021 [facility] Other 02-12-2023 History general Narrative - Reported* [...] Medical History [facility] Medical History 04/28/2022 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 heart cath Rex Stout- [facility] 05/11/16 Hospitalization History Water retention/ [facility] 02/2017 Hospitalization History [facility] 11/2017 Hospitalization History INFECTION IN LEFT SMALL TOE AND FOOT 11/2018 Hospitalization History [facility] -- ICU -- COPD, SMAL L WOUND ON LEFT FOOT 12/2019 Hospitalization History COPD [facility] [place] 12/2019 Hospitalization History Ankle wound 01/2020 Hospitalization History COVID 11/2020 Hospitalization History A-FIB, CHF, KIDNEY ISSUE S 03/2021 [facility] Other 01-24-2023 Evaluation note* Encounter Date Diagnosis [...] findings with him by Shaw Rondon RN, [facility]. [facility] Other 01-23-2023 Reason for referral (narrative)* Reason 12/11/22 @ Irvin gonzalez to lopez per patient request Diagnosis 1 COPD (chronic obstru ctive pulmonary disease) (J44.9) Diagnosis 2 Athscl heart disease of [place] coronary artery w/o ang pctrs (I25.10) Diagnosis 3 Unspecified systolic (congestive) heart failure (I50.20) Referral Organization [facility] Family Mara Hodges Referring Provider First Name Vinnie Referring Provider Last Name Osvaldo Referring Provider Specialty Family Prac yamil Referred Organization [facility] Referred Address [address] [place],[address] Referred Provider Specialty Hospice and Palliative Medicine Referral Priority Routine Referral Appointment Date 2022-12-11 General Notes Doris Modi 09:13:40 AM >referral received and faxed. appt scheduled for 11:00am today. Doris Modi 12/13/2022 12:20:16 PM >faxed letter to obtain consult note Doris Modi 12/14/2022 07:21:24 AM >received VM from marilu sinha [facility], she stated they saw pt, however; he told them he was not ready for comfort care and therefore did not sign on with hospice. Closing referral [facility] Other 12-27-2022 Evaluation note* Encounter Date Diagnosis Assessment Notes Treatment Notes Treatment Clinical Notes Oct, Lumbar and sacral arthritis (ICD-10 - M48.9) [facility] Other 12-20-2022 Evaluation note* Encounter Date Diagnosis [...] low blood sugars noted also discharged on xi and Elizabet had multiple days with both medications. We had applied for [employer] patient assistance it appears his Farxiga is [...] with diabetic education in 4 weeks and vt with 8 weeks to assure mitigation of [...] (ICD-10 - I10) f/u with pcp Oct, jail 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 heart cath Rex Stout- [facility] 05/11/16 Hospitalization History Water retention/ [facility] 02/2017 Hospitalization History [facility] 11/2017 Hospitalization History INFECTION IN LEFT SMALL TOE AND FOOT 11/2018 Hospitalization History [facility] -- ICU -- COPD, SMAL L WOUND ON LEFT FOOT 12/2019 Hospitalization History COPD [facility] [place] 12/2019 Hospitalization History Ankle wound 01/2020 Hospitalization History COVID 11/2020 Hospitalization History A-FIB, CHF, KIDNEY ISSUE S 03/2021 [facility] Other 11-10-2022 Evaluation note* Encounter Date Diagnosis [...] the goal and has adequate [employer] stores [facility] Other 11-10-2022 Evaluation note* Encounter Date Diagnosis [...] plan Sep, Other [employer] material was printed [facility] Other 11-10-2022 History general Narrative - Reported* [...] Medical History [facility] Medical History 04/28/2022 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 failure w/hypoxia, COPD excacerbation [facility] Medical History 04/28/2022-Sepsis sec ./ Para influenza PNA multifocal-[facility] Medical History 05/08/2022-Increasing shortness of [...] hx Hospitalization History rt. heart cath Rex Khan- [facility] 05/11/16 Hospitalization History Water retention/ [facility] 02/2017 Hospitalization History [facility] 11/2017 Hospitalization History INFECTION IN LEFT SMALL TOE AND FOOT 11/2018 Hospitalization History [facility] -- ICU -- COPD, SMAL L WOUND ON LEFT FOOT 12/2019 Hospitalization History COPD [facility] [place] 12/2019 Hospitalization History Ankle wound 01/2020 Hospitalization History COVID 11/2020 Hospitalization History A-FIB, CHF, KIDNEY ISSUE S 03/2021 [facility] Other 10-26-2022 Evaluation note* Encounter Date Diagnosis [...] any worsening erythema, or with other concerns. 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 heart cath Rex Stout- [facility] 05/11/16 Hospitalization History Water retention/ [facility] 02/2017 Hospitalization History [facility] 11/2017 Hospitalization History INFECTION IN LEFT SMALL TOE AND FOOT 11/2018 Hospitalization History [facility] -- ICU -- COPD, SMAL L WOUND ON LEFT FOOT 12/2019 Hospitalization History COPD [facility] [place] 12/2019 Hospitalization History Ankle wound 01/2020 Hospitalization History COVID 11/2020 Hospitalization History A-FIB, CHF, KIDNEY ISSUE S 03/2021 [facility] Other 10-21-2022 Evaluation note* Encounter Date Diagnosis Assessment Notes Treatment Notes Treatment Clinical Notes Aug, Lumbar and sacral arthritis (ICD-10 - M48.9) [facility] Other 10-03-2022 History general Narrative - Reported* [...] Hospitalization History rt. heart cath Rex Stout- [facility] 05/11/16 Hospitalization History Water retention/ [facility] 02/2017 Hospitalization History [facility] 11/2017 Hospitalization History INFECTION IN LEFT SMALL TOE AND FOOT 11/2018 Hospitalization History [facility] -- ICU -- COPD, SMAL L WOUND ON LEFT FOOT 12/2019 Hospitalization History COPD [facility] [place] 12/2019 Hospitalization History Ankle wound 01/2020 Hospitalization History COVID 11/2020 Hospitalization History A-FIB, CHF, KIDNEY ISSUE S 03/2021 [facility] Other 09-12-2022 Evaluation note* Encounter Date Diagnosis [...] (ICD-10 - I10) f/u with pcp Jul, 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 [facility] Other 08-04-2022 History general Narrative - Reported* [...] Hospitalization History rt. heart cath Rex Stout- [facility] 05/11/16 Hospitalization History Water retention/ [facility] 02/2017 Hospitalization History [facility] 11/2017 Hospitalization History INFECTION IN LEFT SMALL TOE AND FOOT 11/2018 Hospitalization History [facility] -- ICU -- COPD, SMAL L WOUND ON LEFT FOOT 12/2019 Hospitalization History COPD [facility] [place] 12/2019 Hospitalization History Ankle wound 01/2020 Hospitalization History COVID 11/2020 Hospitalization History A-FIB, CHF, KIDNEY ISSUE S 03/2021 [facility] Other 08-02-2022 Evaluation note* Encounter Date Diagnosis Assessment Notes Treatment Notes Treatment Clinical Notes Jun, Community acquired pneumonia, unspecified laterality (ICD-10 - J18.9) He will complete the antibiotics and call with any worsening symptoms. I also advised him to call with any worsening diarrhea Jun, COPD (chronic obstructive pulmonary disease) (ICD-10 - J44.9) [facility] Other 08-02-2022 History general Narrative - Reported* [...] Hospitalization History rt. heart cath Rex Stout- [facility] 05/11/16 Hospitalization History Water retention/ [facility] 02/2017 Hospitalization History [facility] 11/2017 Hospitalization History INFECTION IN LEFT SMALL TOE AND FOOT 11/2018 Hospitalization History [facility] -- ICU -- COPD, SMAL L WOUND ON LEFT FOOT 12/2019 Hospitalization History COPD [facility] [place] 12/2019 Hospitalization History Ankle wound 01/2020 Hospitalization History COVID 11/2020 Hospitalization History A-FIB, CHF, KIDNEY ISSUE S 03/2021 [facility] Other 07-27-2022 Progress note Author Ethan Cummings [facility] June 13, 2022 10:16pm Note Date/Time June 06, 2022 11:[address] [facility] [place] [address] Hem/Onc Follow Up Note - OP Signed Patient: Adwoa Porter MR#: [id number] : 1955 Acct:[id number] Age/Sex: 66 / M Type: REG RCR [...] hs BCR/ABL was negative. Recent hospitalization at [facility] for COVID PNA. He had also a [...] for coordination of care (as documented) and depz-wp-acih counseling of patient and/or family. [facility] - Medical History Medical History: [...] signed by Ethan Cummings II, DO> 06/13/[address] [facility] Work Phone: [phone]) 912-386506-28-2022 History general Narrative - Reported* Type Description [...] Hospitalization History rt. heart cath Rex Stout- [facility] 05/11/16 Hospitalization History Water retention/ [facility] 02/2017 Hospitalization History [facility] 11/2017 Hospitalization History INFECTION IN LEFT SMALL TOE AND FOOT 11/2018 Hospitalization History [facility] -- ICU -- COPD, SMAL L WOUND ON LEFT FOOT 12/2019 Hospitalization History COPD [facility] [place] 12/2019 Hospitalization History Ankle wound 01/2020 Hospitalization History COVID 11/2020 Hospitalization History A-FIB, CHF, KIDNEY ISSUE S 03/2021 [facility] Other 06-08-2022 Evaluation note* Encounter Date Diagnosis Assessment Notes Treatment Notes Treatment Clinical Notes Apr, Type 2 diabetes mellitus with hyperglycemia (ICD-10 - E11.65) [facility] Other 06-06-2022 Evaluation note* Encounter Date Diagnosis Assessment Notes Treatment Notes Treatment Clinical Notes Apr, Acute on chronic systolic congestive heart failure (ICD-10 - I50.23) [facility] Other 05-23-2022 Progress note Author Ethan Cummings [facility] April 10, 2022 3:31pm Note Date/Time April 10, 2022 2:42p m [facility] [place] [address] Hem/Onc Follow Up Note - OP Signed Patient: Adwoa Porter MR#: [id number] : 1955 Acct:[id number] Age/Sex: 66 / M Type: REG RCR [...] for coordination of care (as documented) and nkpv-ce-hevi counseling of patient and/or family. [facility] - Medical History Medical History: [...] by Ethan Cummings II, DO> 04/10/[address] 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 Follow up with your primary care physciain tomorrow for further testing. Go to the ER for worsening symptoms or concerns. [facility] Other 03-22-2022 Evaluation note* Encounter Date Diagnosis [...] overload caused by recurring apneas are controlled. [facility] Other 02-23-2022 Evaluation note* Encounter Date Diagnosis [...] (ICD-10 - I10) f/u with pcp Dec, jail current use of insulin (ICD-10 - Z79.4) [...] was counseling done by myself, Tyesha JUDD. 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 discussion and [employer] handout on hypoglycemia and treament. Oct, BMI 35.0-35.9,adult (ICD-10 - Z68.35) Oct, Other I have spent 30 minutes with this patient and over 50% of the visit was counseling done by myself, Tyesha SALTER-Poonam. 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 Name: Adwoa Porter Admitted: 04/12/2021 Discharged: 04/17/2021 Date of : 1955 Physician: Balbir Stubbs MD DISCHARGE SUMMARY PRINCIPAL DISCHARGE DIAGNOSES: 1. Ynfrl-uu-kxqixow heart failure with reduced ejection fraction. 2. [...] heart failure. The patient was transferred to [facility] on a bumetanide infusion. He [...] If strongly occurs, follow up with his leave specialist as soon as possible. 3. The patient was strongly encouraged to consider acute rehab, however, he declined and insisted on returning to home. Total time spent on discharge coordination 45 minutes. Electronically Signed by: Balbir Stubbs MD 04/27/2021 01:19 P Balbir Stubbs MD Date Dict: 04/17/2021/03:44 P/Balbir Stubbs MD Date Trans: 04/18/2021 12:53 A/nena [id number] cc: Vinnie Stewart M.D. [facility] [address] [place] [address] Lowell Craft M.D. [address] [facility] [id number] ClinicDischarge summary Author Yakov To [facility] February 15, 2023 2:13pm Note Date/Time February 15, 2023 2:1 3pm [facility] [address] [place] [address] Discharge Summary Signed Patient: Adwoa Porter MR#: [id number] : 1955 Acct:[id number] Age/Sex: 67 / M Adm Date: 3 Loc: Room: [address] [place] [address]: Yakov To DO Copies to: [...] blood sugars and low potassium by his leave specialist. Upon arrival to the hospital his blood [...] signed by Yakov To DO> 02/15/[address] [facility] Work Phone: Discharge summary Author Swathi Burnham [facility] February 07, 2024 6:54pm Note Date/Time February 07, 2024 6:5 4pm [facility] [address] [place] [address] Discharge Summary Signed Patient: Adwoa Porter MR#: [id number] : 1955 Acct:[id number] Age/Sex: 68 / M Adm Date: 4 Loc: Room: [address] [place] [address]: Swathi Burnham MD Copies to: [...] medical problems, who was recently hospitalized at [facility] and discharged on January 22 to [facility] care facility after being treated for septic shock secondary to cellulitis and left foot ulcer. Patient was discharged on IV antibiotic therapy including amikacin for polymicrobial growth from the wound VAC and PICC line. From [facility] facility he was sent to emergency room back to [facility] for abnormal labs and worsening of kidney [...] also recommended to follow-up with podiatry at [facility]. Vascular was consulted and permanent central venous [...] evaluated by PT OT and discharged to [facility]pc facility for furthertreatment. Hemodialysis sessions were arranged [...] Patient expressed understanding and was discharged to [facility] facility in a stable condition. The patient [...] 11:52 Discharge Plan Discharge Plan Patient Disposition: Group Home Facility Activity: Bed Rest Diet: Renal, Carb Count and Low-Sodium Additional Instructions: Group Home Facility to manage: - Full code - PT/OT to eval and treat - Routine vital signs - ACHS fingersticks - Monitor Skin assessment: multiple wounds - Monitor for signs and symptoms of infections: infected wound/cellulitis - Monitor assessment: SHIRA/CKD, new HD - Monitor Cardio and Respiratory assessment: CHF, Afib, COPD - HS BiPAP settings: 01/09, titrate to keep O2 above 90% - [...] - Documented By: Swathi Burnham MD 02/07/24 1838 Signed By: <Electronically signed by Swathi Burnham MD> 02/07/[address] [facility] Work Phone: Evaluation noteNo InformationNort [address] Other Evaluation note* Diagnosis Onset Date Resolution Status Leukocytosis acute 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
[2024-02-15 21:40] LABS: Occult Blood Positive
== END 2024-02-15 16:39 | disposition home or self-care (01) ==
LOC: LAB 16:38
PROVIDERS: PCP Family Medicine; Visit Provider Family Medicine
DX: E87.71 Transfusion associated circulatory overload (principal); D63.1 Anemia in chronic kidney disease; D64.9 Anemia, unspecified
CPT/HCPCS: G0328

== ENCOUNTER 2024-02-18 00:05 | Outpatient (RCR) | payer MEDICARE, SELFPAY | END 2024-03-18 17:49 | disposition home or self-care (01) | LOC: MM 00:05 | PROVIDERS: PCP Family Medicine; Visit Provider Internal Medicine | DX: Z51.81 Encounter for therapeutic drug level monitoring (principal); Z79.01 Long term (current) use of anticoagulants; I48.91 Unspecified atrial fibrillation ==

== ENCOUNTER 2024-02-19 08:16 | Outpatient (REF) | payer MEDICARE, SELFPAY ==
--- OUTSIDE RECORDS SUMMARY | 2024-02-18 01:28 | XMS_ITS | CCD ---
Author Organization [facility] Care Team Providers Care Economic Geographer Name Role Phone Vinnie Stewart Primary Care Provider Unavailab Valentin Gomez (WND) Attending Provider Unavaila Vinnie Lemon Primary Care Provider [phone] Nicolette Manzano Attending Provider Ivon Kat Attending Provider [phone] [place] Procedure Practitioner Unavailab VINNIE Nash Primary Care Unavailable LOWELL CRAFT Referring Unavailable ANNABELLE BOYD Surgeon Unavailable CECILE MAJOR Admitting Unavailable CECILE MAJOR Attending Unavailable [place] Procedure Practitioner Unavailab BALBIR Cardenas Surgeon Unavailable [...] Kaufman Referring Provider CHARISSE Manzano Attending Provider [phone] DO Alejandro Holliday Emergency Provider [phone] DO Yakov To Admit Provider [phone] DO Yakov To Attending Provider [phone] SHIRLEY, BRYCE Admitting Unavailable SHIRLEY, BRYCE Attending Unavailable SHIRLEY, BRYCE Consulting [facility] Unavailable FAWWAD, BROWN H Attending Unavailable FAWWAD, BROWN H Admitting [facility] Care Unavailable FAWWAD, BROWN H Admitting Unavailable FAWWAD, BROWN H Attending Unavailable [facility] Primary Care Unavailable SEPIDEH ., NIK Admitting Unavailable SEPIDEH ., NIK Attending Unavailable JACOBSON ., DR PROMISE Proctor Consulting Unavailable [facility] Primary Care Unavailable PAY ., DR TOM Consulting Unavailable SUSHIL STOUT Consulting Unavailable AHDOOTSTU Consulting Unavailable CAILIN, MASSIMO Consulting Unavailable PRUITTMICKY Consulting Unavailable SISTER, MURTAZA Consulting Unavailable SEPIDEH ., NKI Consulting Unavailable [facility] Primary Care Unavailable SHANTANU ., DR SOTELO Consulting Unavailable HOY ., DR SOTELO Admitting Unavailable HOY ., DR SOTELO Attending Unavailable ZIEBER, DR BIANCA Sorto Consulting Unavailable SONIDO VAUGHN Consulting Unavailable AUSTIN, BINOR Consulting Unavailable ALEK, AMAR Consulting Unavailable ADRIEL VIRGEN Consulting Unavailable FAWWAD, BROWN H Attending Unavailable FAWWAD, BROWN H Admitting [facility] Primary Care Unavailable FAWWAD, BROWN H Attending Unavailable FAWWAD, BROWN H Admitting [facility] Primary Care Unavailable CAILIN, MASSIMO Consulting Unavailable CAILIN, MASSIMO Admitting Unavailable CAILIN, MASSIMO Attending Unavailable [facility] Primary Care Unavailable YEARTY, KODI Consulting Unavailable YEARTY, KODI Admitting Unavailable STEPHANIE MYERSARA Attending Unavailable [facility] Primary Care Unavailable MISC, DR YEN Consulting Unavailable MISC, DR YEN Admitting Unavailable MISC, DR YEN Attending Unavailable [facility] Primary Care Unavailable JAC, SIMBA Consulting Unavailable JAC, SIMBA Admitting Unavailable STEWART, VINNIE Primary Care Unavailable JACTJUL Attending Unavailable JAC, SIMBA Admitting Unavailable JAC, SIMBA Attending Un[facility] Primary Care Unavailable JAC, SIMBA Consulting Unavailable FAWWAD, BROWN H Attending Unavailable FAWWAD, BROWN H Admitting Unavailable STEWART, SPOFFORD Primary Care Unavailable FAWWAD, BROWN H Admitting Unavailable FAWWAD, BROWN H Attending Un[facility] Primary Care Unavailable FAWWAD, BROWN H Attending Unavailable FAWWAD, BROWN H Admitting Unavailable [facility] Primary Care Unavailable YEARTY, KODI Admitting Unavailable YEARTY, KODI Attending Unavailable STEWART, SPOFFORD Primary Care Unavailable YEARTY, KODI Consulting Unavailable CAILIN, MASSIMO Admitting Unavailable CIALIN, MASSIMO Attending Unavailable STEWART, SPOFFORD Primary Care Unavailable CAILIN, MASSIMO Consulting Unavailable EMA ., CANDELARIA Admitting Unavailable EMA Olson, CANDELARIA Attending Unavailable JORGE BUCKNER Consulting Unavailable [facility] Primary Care Unavailable EMA Olson, CANDELARIA Consulting Unavailable FAWWAD, BROWN H Attending Un[facility] Primary Care Unavailable FAWWAD, BROWN H Admitting Unavailable DR IMTIAZ DUVAL Consulting Unavailable FAWWAD, BROWN H Consulting Unavailable SOFÍA GASTON Consulting Unavailable MIRYAM MENDEZ Consulting Unavailable JOSE STRONG Consulting Unavailable BERMUDEZ, ALLIE Consulting Unavailable FAWWAD, BROWN H Admitting Unavailable FAWWAD, BROWN H Attending [facility] FAWWAD, BROWN H Attending Unavailable FAWWAD, BROWN H Admitting Unavailable [facility] Primary Care Unavailable FAWWAD, BROWN H Admitting Unavailable FAWWAD, BROWN H Attending [facility] Unavailable HIGHLANDER, PETER D Admitting Unavailable HIGHLANDER, PETER D Attending [facility] Primary Care Unavailable HIGHLANDER, PETER D Admitting Unavailable HIGHLANDER, PETER D Attending Un[facility] Primary Care Unavailable HIGHLANDER, PETER D Admitting Unavailable HIGHLANDER, PETER D Attending Unavailable STEWART, SPOFFORD Primary Care Unavailable HIGHLANDER, PETER D Admitting Unavailable HIGHLANDER, PETER D Attending Unavailable STEWART, SPOFFORD Primary Care Unavailable HIGHLANDER, PETER D Admitting Unavailable HIGHLANDER, PETER D Attending [facility] Primary Care Unavailable SADE, DR BIANCA Sorto Consulting Unavailable PAY ., DR TOM Admitting Unavailable PAY ., DR TOM Attending Unavailable STEWARTVINNIE Primary Care Unavailable PAY ., DR TOM Consulting Unavailable FAWWAD, BROWN H Admitting Unavailable FAWWAD, BROWN H Attending Unavailable STEWART, VINNIE Primary Care Unavailable DOON, DR BALBIR Thorpe Consulting Unavailable ZIEBER, DR [...] DO Vinnie Stewart Primary Care Provider Mapus, CHARGEMASTER ANALYST Nicolette Wright Attending Provider [phone] DAHIANA BELCHER Attending Unavailable SUSHIL STOUT Attending Unavailable FATIMAH NARVAEZ Referring Unavailable BRYCE WATSON Attending Unavailable MASSIMO SWAN Attending Unavailable SUSHIL STOUT Attending Unavailable SHIRLEY, BRYCE Attending Unavailable BRYCE WATSON Attending Unavailable SUSHIL STOUT Attending Unavailable DO Vinnie Stewart Primary Care Provider [place], CHARGEMASTER ANALYST Tondra K Attending Provider [phone] NELLY Arroyo Attending Provider [phone] DO Farhan Hudson Admit Provider [phone] MD Farhan Schofield Other Provider MD Lia Law Other Provider NELLY Valle Other Provider MD Raul Bravo Other Provider KATIE Bailey Other Provider Unavailable MD Rodrick Herndon Other Provider KINSEY George Other Provider MD Shaheed Bryan Other Provider MD Swathi Burnham Attending Provider Vinnie Stewart Primary Care Unavailable Yakov To Attending Unavailable Yakov To Admitting Unavailable Nicolette Manzano Attending Unavailable Nicolette Manzano Admitting Unavailable [...] Propensity to adverse reactions 2 Cough [facility] Repository (20 sources) Angiotensin Converting Enzyme (Lupis) Inhibitors Propensity to adverse reactions cough [employer] Other Medications Current Medications Medication Drug Class(es) [...] 8 hrs for 30 day(s) Sep, Active [id number] 200 actuat albuterol 0.09 mg/actuat metered dose [...] puff(s) by in halation twice daily calcitriol 0.41031 mg oral capsule (1 source) Vitamin D3 [...] Active Start: 09-13-2022 take 1 tablet by [facility] every eight hours Cephalexin 500 MG 1 tablet Orally every 8 hours for 7 days Aug, Active Start: 03-02-2022 take 1 capsule by [facility] every eight hours Cephalexin 500 MG 1 capsule Orally tid for 7 days Feb, Active Start: 01-26-2022 take 1 capsule by [facility] every twelve hours Cephalexin 500 MG 1 capsule Orally bid for 10 day(s) Jan, Active Start: 01-10-2022 take 1 capsule by [facility] every eight hours Cephalexin 500 MG 1 capsule Orally tid for 7 days Dec, Active Start: 12-09-2021 take 1 capsule by [facility] every twelve hours Cephalexin 500 MG 1 [...] DX E11.65 Apr, Active FreeStyle Lucas 2 Dewar - (20 sources) FreeStyle Lucas 2 Dewar - USE READER TO TEST BLOOD SUGAR DIRECTED DAILY for 365 Active FreeStyle Lucas 2 Dewar - USE DIRECTED DAILY for 365 Active FreeStyle Lucas 2 Dewar Sys tm - (20 sources) FreeStyle Lucas 2 Dewar Systm - as directed SQ Daily Active FreeStyle Lucas 2 Dewar Systm - as directed SQ Daily for [...] Subcutaneous daily for 90 days transition from [facility] Aug, Active inject 50 [IU] [...] Start: 05-30-2022 take 2 tablets by mo [facility] every twenty-four hours predniSONE 20 MG [...] sources) Anticholinergic Start: 04-10-2022 End: 12-04-2022 Ipratropium Forrest[place] Discontinued SOLUTION April 10, 2022 12:00am December [...] 12, 2020 8:46am take 2 tablets by [facility] every twenty-four hours sennosides, alf 8.6 mg oral tablet (7 sources) Start: [...] Angina pectoris; 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] Onset: [...] sources) Long-term current use of insulin; Translations: [penitentiary (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] Episodic Other aftercare (9 sources) manager 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; Translations: [HALFWAY CURRENT USE OF INSULIN] Onset: 1 Resolved: 2 Episodic Other aftercare (1 source) penitentiary (current) use of aspirin; 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] Onset: 3 Episodic Other aftercare (2 sources) Other emt intermediate (current) drug therapy; Translations: [OTH TOOL MAINTENANCE WORKER CURRENT DRUG THERAPY] Onset: 3 Episodic Other aftercare (5 sources) Encounter for therapeutic drug level monitoring; Translations: [ENC THERAPEUTC DRUG LEVL MONITORING] Onset: 3 Episodic Other aftercare (1 source) manager 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) use of anticoagulants; Translations: [TOOL 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 [facility] Calcium [Mass/volume] in Ser um or PlasmaOrdered By: Farhan Hudson on 02-05-2024 Calcium [Mass/Vol] 7.0 mg/dL 8.6-10.3 [facility] Capillary blood glucose mike urement by glucometer (mass/volume)Ordered By: Swathi Burnham on 02-05-2024 Glucose [Mass/Vol] 256 mg/dL Normal [facility] Comment on above: Random Glucose Refer ence Range is dependent on time and content of last meal. Glucose of more than 200 mg/dL in a nonstressed, ambulatory subject supports the diagnosis of Diabetes Mellitus. Result Comment: [place] Glucose Reference Range is dependent on time and content of last meal. Glucose of more than 200 mg/dL in a nonstressed, ambulatory subject supports the diagnosis of Diabetes Mellitus. Performed By: #### G LULS #### Point of Care testing , Carbon dioxide, total [Moles /volume] in Serum or PlasmaOrdered By: Farhan Hudson on 02-05-2024 CO2 [Moles/Vol] 27.6 mmol/L 21.0-31.0 [facility] [place] Chloride [Moles/volume] in S mary or PlasmaOrdered By: Farhan Hudson on 02-05-2024 Chloride [Moles/Vol] 95 mmol/L 98-107 [facility] Complete Blood Count Auto Di ffon 02-05-2024 Basophils (Bld) [#/Vol] 0.1 10*3/uL Normal 0.0-0.2 [facility] Comment on above: Result Comment: PERF ORMED BY: [place] [address] PATHOLOGIST WINDOW DECORATOR RAFA BYRNE M.D. Performed By: #### C BC #### [address] Basophils/100 WBC (Bld) 0.6 % Normal . [facility] Comment on above: Performed By: #### C BC #### [address] Eosinophils (Bld) [#/Vol] 0.4 10*3/uL Normal 0.0-0.45 [facility] Comment on above: Performed By: #### C BC #### [address] Eosinophils/100 WBC (Bld) 5.0 % Normal . [facility] Comment on above: Performed By: #### C BC #### [address] Erythrocyte distribution width (RBC) [Ratio] 17.7 % High 12.0-14.8 [facility] Comment on above: Performed By: #### C BC #### [address] Hematocrit (Bld) [Volume fraction] 22.6 % Low 38.8-50.0 [facility] Comment on above: Performed By: #### C BC #### [address] Hemoglobin (Bld) [Mass/Vol] 7.6 g/dL Low 13.0-17.0 [facility] Comment on above: Performed By: #### C BC #### [address] Lymphocytes (Bld) [#/Vol] 1.3 10*3/uL Normal 1.00-4.8 [facility] Comment on above: Performed By: #### C BC #### [address] Lymphocytes/100 WBC (Bld) 14.7 % Normal . [facility] Comment on above: Performed By: #### C BC #### [address] MCH (RBC) [Entitic mass] 26.6 pg Low 27.5-35.2 [facility] Comment on above: Performed By: #### C BC #### [address] MCV (RBC) [Entitic vol] 79.6 fL Low 83.5-101 [facility] Comment on above: Performed By: #### C BC #### [address] Mean Corpuscular HGB Conc 33.4 g/dL Normal 32.5-35.6 [facility] Comment on above: Performed By: #### C BC #### [address] Monocytes (Bld) [#/Vol] 0.5 10*3/uL Normal 0.0-0.8 [facility] Comment on above: Performed By: #### C BC #### [address] Monocytes/100 WBC (Bld) 6.1 % Normal . [facility] Comment on above: Performed By: #### C BC #### [address] Neutrophils (Bld) [#/Vol] 6.6 10*3/uL Normal 1.8-7.7 [facility] Comment on above: Performed By: #### C BC #### [address] Neutrophils/100 WBC (Bld) 73.6 % Normal . [facility] Comment on above: Performed By: #### C BC #### [address] NRBC% 0.0 /100{WBC} Normal 0-0.5 [facility] Comment on above: Performed By: #### C BC #### [facility] [address] Platelet mean volume (Bld) [Entitic vol] 7.2 fL Normal 6.6-10.1 [facility] Comment on above: Performed By: #### C BC #### [facility] [address] Platelets (Bld) [#/Vol] 180 10*3/uL Normal 150-450 [facility] Comment on above: Performed By: #### C BC #### [facility] [address] RBC (Bld) [#/Vol] 2.84 10*6/uL Low 3.90-5.60 [facility] Comment on above: Performed By: #### C BC #### [facility] [address] WBC (Bld) [#/Vol] 8.9 10*3/uL Normal 4.1-10.5 [facility] Comment on above: Performed By: #### C BC #### [facility] [address] Creatinine [Mass/volume] in Serum or PlasmaOrdered By: Farhan Hudson on 02-05-2024 Creatinine [Mass/Vol] 2.63 mg/dL 0.70-1.30 [facility] Comment on above: Delta: 3.41 on 02/0324-0600 Eosinophils Auto (Bld) [#/Vo l]Ordered By: Swathi Burnham on 02-05-2024 Eosinophils (Bld) [#/Vol] 0.4 10*3/uL 0.0-0.45 [facility] Eosinophils/100 WBC Auto (Bl d)Ordered By: Swathi Burnham on 02-05-2024 Eosinophils/100 WBC (Bld) 5.0 % . [facility] Erythrocyte distribution wid th Auto (RBC) [Ratio]Ordered By: Swathi Burnham on 02-05-2024 Erythrocyte distribution width (RBC) [Ratio] 17.7 % 12.0-14.8 [facility] Glucose Poct Glucometerson 0 02-05-2024 Commemt1 Glu2: Cleaned Meter Normal [facility] Comment on above: Result Comment: PERF ORMED BY: [place] [address] PATHOLOGIST WINDOW DECORATOR RAFA BYRNE M.D. Performed By: #### G ALVARADO #### Point of Care testing , Performed By: #### A HERVE STEINER #### [address] Glucose [Mass/Vol] 221 mg/dL Normal [facility] Comment on above: Result Comment: [place] Glucose Reference Range is dependent on time and content of last meal. Glucose of more than 200 mg/dL in a nonstressed, ambulatory subject supports the diagnosis of Diabetes Mellitus. Performed By: #### A HERVE STEINER #### [facility] [address] [place] [address] Glucose [Mass/Vol] 166 mg/dL Normal [facility] Comment on above: Result Comment: [place] Glucose Reference Range is dependent on time and content of last meal. Glucose of more than 200 mg/dL in a nonstressed, ambulatory subject supports the diagnosis of Diabetes Mellitus. PERFORMED BY: [place] [address] PATHOLOGIST WINDOW DECORATOR RAFA BYRNE M.D. Performed By: #### G ALVARADO #### Point of Care testing , Glucose [Mass/volume] in Ser um or PlasmaOrdered By: Farhan Hudson on 02-05-2024 Glucose [Mass/Vol] 162 mg/dL 70-100 [facility] Comment on above: ADA recommended refe rence rangeRandom Glucose Reference Range is dependent on time and content of last meal. Glucose of more than 200 mg/dL in a nonstressed, ambulatory subject supports the diagnosis of Diabetes Mellitus. Hematocrit Auto (Bld) [Volum e fraction]Ordered By: Swathi Burnham on 02-05-2024 Hematocrit (Bld) [Volume fraction] 22.7 % 38.8-50.0 [facility] Hemoglobin [Mass/volume] in BloodOrdered By: Swathi Burnham on 02-05-2024 Hemoglobin (Bld) [Mass/Vol] 7.5 g/dL 13.0-17.0 [facility] Hemoglobin and Hematocriton 02-05-2024 Hematocrit (Bld) [Volume fraction] 22.7 % Low 38.8-50.0 [facility] Comment on above: Result Comment: PERF ORMED BY: [facility] [address] [place] [address] PATHOLOGIST WINDOW DECORATOR RAFA BYRNE M.D. Performed By: #### G LULS #### Point of Care testing , Hemoglobin (Bld) [Mass/Vol] 7.5 g/dL Low 13.0-17.0 [facility] Comment on above: Performed By: #### G LULS #### Point of Care testing , Leukocytes [#/volume] correc morris for nucleated erythrocytes in Blood by Automated counOrdered By: Swathi Burnham on 02-05-2024 WBC corrected for nucl RBC Auto (Bld) [#/Vol] 8.9 10*3/uL 4.1-10.5 [facility] Lymphocytes Auto (Bld) [#/Vo l]Ordered By: Swathi Burnham on 02-05-2024 Lymphocytes (Bld) [#/Vol] 1.3 10*3/uL 1.00-4.8 [facility] Lymphocytes/100 WBC Auto (Bl d)Ordered By: Swathi Burnham on 02-05-2024 Lymphocytes/100 WBC (Bld) 14.7 % . [facility] MCH Auto (RBC) [Entitic mass ]Ordered By: Swathi Burnham on 02-05-2024 MCH (RBC) [Entitic mass] 26.6 pg 27.5-35.2 [facility] MCHC Auto (RBC) [Mass/Vol]Or dered By: Swathi Burnham on 02-05-2024 MCHC (RBC) [Mass/Vol] 33.4 g/dL 32.5-35.6 [facility] MCV Auto (RBC) [Entitic vol] Ordered By: Swathi Burnham on 02-05-2024 MCV (RBC) [Entitic vol] 79.6 fL 83.5-101 [facility] Monocytes Auto (Bld) [#/Vol] Ordered By: Swathi Burnham on 02-05-2024 Monocytes (Bld) [#/Vol] 0.5 10*3/uL 0.0-0.8 [facility] Monocytes/100 WBC Auto (Bld) Ordered By: Swathi Burnham on 02-05-2024 Monocytes/100 WBC (Bld) 6.1 % . [facility] Neutrophils Auto (Bld) [#/Vo l]Ordered By: Swathi Burnham on 02-05-2024 Neutrophils (Bld) [#/Vol] 6.6 10*3/uL 1.8-7.7 [facility] Neutrophils/100 WBC Auto (Bl d)Ordered By: Swathi Burnham on 02-05-2024 Neutrophils/100 WBC (Bld) 73.6 % . [facility] No Panel InformationOrdered By: Swathi Burnham on 02-05-2024 Bedside Glucose Comment Glu2: cleaned meter [facility] No Panel InformationOrdered By: Farhan Hudson on 02-05-2024 Estimated GFR (CKD-EPI) 25.531 mL/Min [facility] Creatinine Clearance (Chem 30.17 [facility] Nucleated erythrocytes [Pres ence] in Blood by Automated countOrdered By: Swathi Burnham on 02-05-2024 Nucleated RBC Auto Ql (Bld) 0.0 /100{WBC} 0-0.5 [facility] Phosphate [Mass/volume] in S mary or PlasmaOrdered By: Farhan Hudson on 02-05-2024 Phosphate [Mass/Vol] 3.9 mg/dL 2.5-4.5 [facility] Platelet mean volume Auto (B ld) [Entitic vol]Ordered By: Swathi Burnham on 02-05-2024 Platelet mean volume (Bld) [Entitic vol] 7.2 fL 6.6-10.1 [facility] Platelets Auto (Bld) [#/Vol] Ordered By: Swathi Burnham on 02-05-2024 Platelets (Bld) [#/Vol] 180 10*3/uL 150-450 [facility] Potassium [Moles/volume] in Serum or PlasmaOrdered By: Farhan Hudson on 02-05-2024 Potassium [Moles/Vol] 3.7 mmol/L 3.5-5.1 [facility] RBC Auto (Bld) [#/Vol]Ordere d By: Swathi Burnham on 02-05-2024 RBC (Bld) [#/Vol] 2.84 10*6/uL 3.90-5.60 [facility] Renal Function Panelon 02-04 Albumin [Mass/Vol] 2.4 g/dL Low 3.5-5.7 [facility] Comment on above: Performed By: #### R ENAL #### [facility] [address] Anion gap [Moles/Vol] 11.1 mmol/L Normal 6.0-15.0 [facility] Comment on above: Performed By: #### R ENAL #### [facility] [address] [place] [address] [place] Calcium [Mass/Vol] 7.0 mg/dL Low 8.6-10.3 [facility] Comment on above: Performed By: #### R ENAL #### [facility] [address] [place] [id number] [place] Chloride [Moles/Vol] 95 mmol/L Low 98-107 [facility] Comment on above: Performed By: #### R ENAL #### [facility] [address] [place] [address] [place] CO2 [Moles/Vol] 27.6 mmol/L Normal 21.0-31.0 [facility] [place] Comment on above: Performed By: #### R ENAL #### [facility] [address] [place] [id number] [place] Creatinine [Mass/Vol] 2.63 mg/dL Significan t change up 0.70-1.30 [facility] Comment on above: Performed By: #### R ENAL #### [facility] [address] [place] [address] [place] Creatinine Clr Calc Pharmacy 30.17 Normal [facility] Comment on above: Result Comment: PERF ORMED BY: [place] [address] PATHOLOGIST WINDOW DECORATOR RAFA BYRNE M.D. Performed By: #### R ENAL #### [facility] [address] [place] [address] [place] GFR/1.73 sq M.predicted MDRD (S/P/Bld) [Vol rate/Area] 25.531 mL/min/{1.73_m2} Normal [facility] [place] Comment on above: Performed By: #### R ENAL #### [address] Glucose [Mass/Vol] 162 mg/dL High 70-100 [facility] Comment on above: Result Comment: [facility] Glucose Reference Range is dependent on time and content of last meal. Glucose of more than 200 mg/dL in a nonstressed, ambulatory subject supports the diagnosis of Diabetes Mellitus. ADA recommended reference range Performed By: #### R ENAL #### [address] Phosphate [Mass/Vol] 3.9 mg/dL Normal 2.5-4.5 [facility] Comment on above: Performed By: #### R ENAL #### [place] [address] [place] Potassium [Moles/Vol] 3.7 mmol/L Normal 3.5-5.1 [facility] Comment on above: Performed By: #### R ENAL #### [place] [address] [place] Sodium [Moles/Vol] 130 mmol/L Low 136-145 [facility] Comment on above: Performed By: #### R ENAL #### [place] [address] [place] Urea nitrogen [Mass/Vol] 35 mg/dL High 06-12 [facility] Comment on above: Performed By: #### R ENAL #### [facility] [address] Serum or plasma anion gap de terminationOrdered By: Farhan Hudson on 02-05-2024 Anion gap [Moles/Vol] 11.1 mmol/L 6.0-15.0 [facility] Sodium [Moles/volume] in Ser um or PlasmaOrdered By: Farhan Hudson on 02-05-2024 Sodium [Moles/Vol] 130 mmol/L 136-145 [facility] Urea nitrogen [Mass/volume] in Serum or PlasmaOrdered By: Farhan Hudson on 02-05-2024 Urea nitrogen [Mass/Vol] 35 mg/dL 06-12 [facility] WBC Auto (Bld) [#/Vol]Ordere d By: Swathi Burnham on 02-05-2024 WBC (Bld) [#/Vol] 8.9 10*3/uL 4.1-10.5 [facility] Glucose Poct Glucometerson 0 02-04-2024 Glucose [Mass/Vol] 268 mg/dL Normal [facility] Comment on above: Result Comment: [facility] Glucose Reference Range is dependent on time and content of last meal. Glucose of more than 200 mg/dL in a nonstressed, ambulatory subject supports the diagnosis of Diabetes Mellitus. PERFORMED BY: [place] [address] PATHOLOGIST WINDOW DECORATOR RAFA BYRNE M.D. Performed By: #### G LULS #### Point of Care testing , Commemt1 Glu2: Cleaned Meter Normal [facility] Comment on above: Result Comment: PERF ORMED BY: [place] [address] PATHOLOGIST WINDOW DECORATOR RAFA BYRNE M.D. Performed By: #### R ENAL #### [facility] [address] Glucose [Mass/Vol] 114 mg/dL Normal [facility] Comment on above: Result Comment: [place] Glucose Reference Range is dependent on time and content of last meal. Glucose of more than 200 mg/dL in a nonstressed, ambulatory subject supports the diagnosis of Diabetes Mellitus. Performed By: #### R ENAL #### [address] Commemt1 Glu2: Cleaned Meter Normal [facility] Comment on above: Result Comment: PERF ORMED BY: [place] [address] PATHOLOGIST WINDOW DECORATOR RAFA BYRNE M.D. Performed By: #### A HERVE STEINER #### [address] Glucose [Mass/Vol] 188 mg/dL Normal [facility] Comment on above: Result Comment: [place] Glucose Reference Range is dependent on time and content of last meal. Glucose of more than 200 mg/dL in a nonstressed, ambulatory subject supports the diagnosis of Diabetes Mellitus. Performed By: #### A HERVE STEINER #### [address] Renal Function Panelon 02-03 Albumin [Mass/Vol] 2.5 g/dL Low 3.5-5.7 [facility] Comment on above: Performed By: #### R ENAL #### [address] Anion gap [Moles/Vol] 13.0 mmol/L Normal 6.0-15.0 [facility] Comment on above: Performed By: #### R ENAL #### [place] [address] [place] Calcium [Mass/Vol] 7.4 mg/dL Low 8.6-10.3 [facility] Comment on above: Performed By: #### R ENAL #### [place] [address] [place] Chloride [Moles/Vol] 93 mmol/L Low 98-107 [facility] Comment on above: Performed By: #### R ENAL #### [facility] [address] CO2 [Moles/Vol] 27.9 mmol/L Normal 21.0-31.0 [facility] [place] Comment on above: Performed By: #### R ENAL #### [facility] [address] Creatinine [Mass/Vol] 3.41 mg/dL Significan t change up 0.70-1.30 [facility] Comment on above: Performed By: #### R ENAL #### [place] [address] [place] Creatinine Clr Calc Pharmacy 23.27 Normal [facility] Comment on above: Result Comment: PERF ORMED BY: [place] [address] PATHOLOGIST WINDOW DECORATOR RAFA BYRNE M.D. Performed By: #### R ENAL #### [place] [address] [place] GFR/1.73 sq M.predicted MDRD (S/P/Bld) [Vol rate/Area] 18.694 mL/min/{1.73_m2} Normal [facility] [place] Comment on above: Performed By: #### R ENAL #### [address] Glucose [Mass/Vol] 164 mg/dL High 70-100 [facility] Comment on above: Result Comment: [place] Glucose Reference Range is dependent on time and content of last meal. Glucose of more than 200 mg/dL in a nonstressed, ambulatory subject supports the diagnosis of Diabetes Mellitus. ADA recommended reference range Performed By: #### R ENAL #### [place] [address] [place] Phosphate [Mass/Vol] 5.6 mg/dL High 2.5-4.5 [facility] Comment on above: Performed By: #### R ENAL #### [place] [address] [place] Potassium [Moles/Vol] 3.9 mmol/L Normal 3.5-5.1 [facility] Comment on above: Performed By: #### R ENAL #### [facility] [address] Sodium [Moles/Vol] 130 mmol/L Low 136-145 [facility] Comment on above: Performed By: #### R ENAL #### [facility] [address] Urea nitrogen [Mass/Vol] 50 mg/dL High 7-25 [facility] Comment on above: Performed By: #### R ENAL #### [facility] [address] Alanine aminotransferase [En zymatic activity/volume] in Serum or PlasmaOrdered By: Farhan Hudson on 02-03-2024 ALT [Catalytic activity/Vol] 14 U/L 7-52 [facility] Alkaline phosphatase [Enzyma tic activity/volume] in Serum or PlasmaOrdered By: Farhan Hudson on 02-03-2024 ALP [Catalytic activity/Vol] 157 U/L 34-104 [facility] Aspartate aminotransferase [ Enzymatic activity/volume] in Serum or PlasmaOrdered By: Farhan Hudson on 02-03-2024 AST [Catalytic activity/Vol] 15 U/L 13-39 [facility] Bilirubin.direct [Mass/volum e] in Serum or PlasmaOrdered By: Farhan Hudson on 02-03-2024 Bilirubin.direct [Mass/Vol] 0.20 mg/dL 0.03-0.18 [facility] Bilirubin.total [Mass/volume ] in Serum or PlasmaOrdered By: Farhan Hudson on 02-03-2024 Bilirubin [Mass/Vol] 0.6 mg/dL 0.3-1.0 [facility] Complete Blood Count Auto Di ffon 02-03-2024 Basophils (Bld) [#/Vol] 0.1 10*3/uL Normal 0.0-0.2 [facility] Comment on above: Result Comment: PERF ORMED BY: [address] [place] [address] PATHOLOGIST WINDOW DECORATOR RAFA BYRNE M.D. Performed By: #### G EANLS #### Point of Care testing , Basophils/100 WBC (Bld) 1.2 % Normal . [facility] Comment on above: Performed By: #### G EANLS #### Point of Care testing , Eosinophils (Bld) [#/Vol] 0.4 10*3/uL Normal 0.0-0.45 [facility] Comment on above: Performed By: #### G EANLS #### Point of Care testing , Eosinophils/100 WBC (Bld) 4.3 % Normal . [facility] Comment on above: Performed By: #### G EANLS #### Point of Care testing , Erythrocyte distribution width (RBC) [Ratio] 17.4 % High 12.0-14.8 [facility] Comment on above: Performed By: #### G EANLS #### Point of Care testing , Hematocrit (Bld) [Volume fraction] 24.7 % Low 38.8-50.0 [facility] Comment on above: Performed By: #### Georgette MCKOYLS #### Point of Care testing , Hemoglobin (Bld) [Mass/Vol] 8.3 g/dL Low 13.0-17.0 [facility] Comment on above: Performed By: #### G EANLS #### Point of Care testing , Lymphocytes (Bld) [#/Vol] 1.7 10*3/uL Normal 1.00-4.8 [facility] Comment on above: Performed By: #### G EANLS #### Point of Care testing , Lymphocytes/100 WBC (Bld) 17.0 % Normal . [facility] Comment on above: Performed By: #### G EANLS #### Point of Care testing , MCH (RBC) [Entitic mass] 26.8 pg Low 27.5-35.2 [facility] Comment on above: Performed By: #### G EANLS #### Point of Care testing , MCV (RBC) [Entitic vol] 79.7 fL Low 83.5-101 [facility] Comment on above: Performed By: #### G EANLS #### Point of Care testing , Mean Corpuscular HGB Conc 33.6 g/dL Normal 32.5-35.6 [facility] Comment on above: Performed By: #### Georgette CHILDERS #### Point of Care testing , Monocytes (Bld) [#/Vol] 0.5 10*3/uL Normal 0.0-0.8 [facility] Comment on above: Performed By: #### Georgette CHILDERS #### Point of Care testing , Monocytes/100 WBC (Bld) 5.3 % Normal . [facility] Comment on above: Performed By: #### Georgette CHILDERS #### Point of Care testing , Neutrophils (Bld) [#/Vol] 7.3 10*3/uL Normal 1.8-7.7 [facility] Comment on above: Performed By: #### Georgette CHILDERS #### Point of Care testing , Neutrophils/100 WBC (Bld) 72.2 % Normal . [facility] Comment on above: Performed By: #### Georgette CHILDERS #### Point of Care testing , NRBC% 0.1 /100{WBC} Normal 0-0.5 [facility] Comment on above: Performed By: #### Georgette CHILDERS #### Point of Care testing , Platelet mean volume (Bld) [Entitic vol] 7.1 fL Normal 6.6-10.1 [facility] Comment on above: Performed By: #### Georgette CHILDERS #### Point of Care testing , Platelets (Bld) [#/Vol] 228 10*3/uL Normal 150-450 [facility] Comment on above: Performed By: #### Georgette CHILDERS #### Point of Care testing , RBC (Bld) [#/Vol] 3.10 10*6/uL Low 3.90-5.60 [facility] Comment on above: Performed By: #### Georgette CHILDERS #### Point of Care testing , WBC (Bld) [#/Vol] 10.1 10*3/uL Normal 4.1-10.5 [facility] Comment on above: Performed By: #### Georgette CHILDERS #### Point of Care testing , Ferritinon 02-03-2024 Ferritin [Mass/Vol] 208.4 ng/mL Normal 23.9-336.2 [facility] Comment on above: Performed By: #### G ALVARADO #### Point of Care testing , Ferritin [Mass/volume] in Se rum or PlasmaOrdered By: Farhan Hudson on 02-03-2024 Ferritin [Mass/Vol] 208.4 ng/mL 23.9-336.2 [facility] Folate [Mass/volume] in Seru m or PlasmaOrdered By: Farhan Hudson on 02-03-2024 Folate [Mass/Vol] 9.7 ng/mL >5.9 [facility] Comment on above: Folate reference ran ge: >5.9 ng/mlThe WHO technical consultation on folate and vitamin [id number] has determined that folate concentrations lessthan 4 ng/ml are considered deficient. Globulin Calc (S) [Mass/Vol] Ordered By: Farhan Hudson on 02-03-2024 Globulin (S) [Mass/Vol] 3.7 g/dL [facility] Glucose Poct Glucometerson 0 02-03-2024 Glucose [Mass/Vol] 190 mg/dL Normal [facility] Comment on above: Result Comment: [facility] Glucose Reference Range is dependent on time and content of last meal. Glucose of more than 200 mg/dL in a nonstressed, ambulatory subject supports the diagnosis of Diabetes Mellitus. PERFORMED BY: [address] [address] PATHOLOGIST WINDOW DECORATOR RAFA BYRNE M.D. Performed By: #### G EANLS #### Point of Care testing , Glucose [Mass/Vol] 235 mg/dL Normal [facility] Comment on above: Result Comment: [facility] Glucose Reference Range is dependent on time and content of last meal. Glucose of more than 200 mg/dL in a nonstressed, ambulatory subject supports the diagnosis of Diabetes Mellitus. PERFORMED BY: [facility] [address] [facility] [place] [address] PATHOLOGIST WINDOW DECORATOR RAFA BYRNE M.D. Performed By: #### G LULS #### Point of Care testing , Glucose [Mass/Vol] 262 mg/dL Normal [facility] Comment on above: Result Comment: [facility] Glucose Reference Range is dependent on time and content of last meal. Glucose of more than 200 mg/dL in a nonstressed, ambulatory subject supports the diagnosis of Diabetes Mellitus. PERFORMED BY: [place] [address] PATHOLOGIST WINDOW DECORATOR RAFA BYRNE M.D. Performed By: #### Robert STEINER #### [address] Glucose [Mass/Vol] 218 mg/dL Normal [facility] Comment on above: Result Comment: [facility] Glucose Reference Range is dependent on time and content of last meal. Glucose of more than 200 mg/dL in a nonstressed, ambulatory subject supports the diagnosis of Diabetes Mellitus. PERFORMED BY: [place] [address] PATHOLOGIST WINDOW DECORATOR RAFA BYRNE M.D. Performed By: #### R UZAIR #### [address] Hepatic Panelon 02-03-2024 Albumin [Mass/Vol] 2.4 g/dL Low 3.5-5.7 [facility] Comment on above: Performed By: #### G EANLS #### Point of Care testing , Albumin/Globulin [Mass ratio] 0.6 {ratio} Normal [facility] Comment on above: Performed By: #### G EANLS #### Point of Care testing , ALP [Catalytic activity/Vol] 157 U/L High 34-104 [facility] Comment on above: Performed By: #### G LULS #### Point of Care testing , ALT [Catalytic activity/Vol] 14 U/L Normal 7-52 [facility] Comment on above: Performed By: #### G LULS #### Point of Care testing , AST [Catalytic activity/Vol] 15 U/L Normal 13-39 [facility] Comment on above: Performed By: #### G LULS #### Point of Care testing , Bilirubin [Mass/Vol] 0.6 mg/dL Normal 0.3-1.0 [facility] Comment on above: Performed By: #### G ALVARADO #### Point of Care testing , Bilirubin,Indirect 0.4 mg/dL Normal [facility] Comment on above: Performed By: #### G ALVARADO #### Point of Care testing , Bilirubin.indirect [Mass/Vol] 0.20 mg/dL High 0.03-0.18 [facility] Comment on above: Performed By: #### G ALVARADO #### Point of Care testing , Globulin (S) [Mass/Vol] 3.7 g/dL Normal [facility] Comment on above: Performed By: #### G ALVARADO #### Point of Care testing , Protein [Mass/Vol] 6.1 g/dL Low 6.4-8.9 [facility] Comment on above: Performed By: #### G ALVARADO #### Point of Care testing , Iron [Mass/volume] in Serum or PlasmaOrdered By: Farhan Hudson on 02-03-2024 Iron [Mass/Vol] 169 ug/dL 50-212 [facility] Iron and TIBC Profileon 01-17-2023 % Iron Saturation 87.6 % High 20-50 [facility] Comment on above: Performed By: #### G ALVARADO #### Point of Care testing , Iron [Mass/Vol] 169 ug/dL Normal 50-212 [facility] Comment on above: Performed By: #### G ALVARADO #### Point of Care testing , Total Iron Binding Capacity 193 ug/dL Low 255-450 [facility] Comment on above: Performed By: #### G ALVARADO #### Point of Care testing , Transferrin [Mass/Vol] 138 mg/dL Low 203-362 [facility] Comment on above: Performed By: #### G ALVARADO #### Point of Care testing , Iron binding capacity [Mass/ volume] in Serum or PlasmaOrdered By: Farhan Hudson on 02-03-2024 Iron binding capacity [Mass/Vol] 193 ug/dL 255-450 [facility] Iron saturation [Mass Fracti on] in Serum or PlasmaOrdered By: Farhan Hudson on 02-03-2024 Iron saturation [Mass fraction] 87.6 % 20-50 [facility] Protein [Mass/volume] in Ser um or PlasmaOrdered By: Farhan Hudson on 02-03-2024 Protein [Mass/Vol] 6.1 g/dL 6.4-8.9 [facility] Renal Function Panelon 02-02 Anion gap [Moles/Vol] 10.2 mmol/L Normal 6.0-15.0 [facility] Comment on above: Performed By: #### G LULS #### Point of Care testing , Calcium [Mass/Vol] 7.1 mg/dL Low 8.6-10.3 [facility] Comment on above: Performed By: #### G EANLS #### Point of Care testing , Chloride [Moles/Vol] 95 mmol/L Low 98-107 [facility] Comment on above: Performed By: #### G EANLS #### Point of Care testing , CO2 [Moles/Vol] 28.8 mmol/L Normal 21.0-31.0 [facility] [place] Comment on above: Performed By: #### G LULS #### Point of Care testing , Creatinine [Mass/Vol] 2.87 mg/dL Significan t change up 0.70-1.30 [facility] Comment on above: Performed By: #### G LULS #### Point of Care testing , Creatinine Clr Calc Pharmacy 27.45 [facility] Comment on above: Performed By: #### G LULS #### Point of Care testing , GFR/1.73 sq M.predicted MDRD (S/P/Bld) [Vol rate/Area] 22.991 mL/min/{1.73_m2} [facility] Comment on above: Performed By: #### G LULS #### Point of Care testing , Glucose [Mass/Vol] 157 mg/dL High 70-100 [facility] Comment on above: Result Comment: [facility] Glucose Reference Range is dependent on time and content of last meal. Glucose of more than 200 mg/dL in a nonstressed, ambulatory subject supports the diagnosis of Diabetes Mellitus. ADA recommended reference range Performed By: #### G LULS #### Point of Care testing , Phosphate [Mass/Vol] 5.0 mg/dL High 2.5-4.5 [facility] Comment on above: Performed By: #### G LULS #### Point of Care testing , Potassium [Moles/Vol] 4.0 mmol/L Normal 3.5-5.1 [facility] Comment on above: Performed By: #### G LULS #### Point of Care testing , Sodium [Moles/Vol] 130 mmol/L Low 136-145 [facility] Comment on above: Performed By: #### G LULS #### Point of Care testing , Urea nitrogen [Mass/Vol] 36 mg/dL High 7-25 [facility] Comment on above: Performed By: #### G LULS #### Point of Care testing , Serum or plasma albumin/glob ulin mass ratioOrdered By: Farhan Hudson on 02-03-2024 Albumin/Globulin [Mass ratio] 0.6 {ratio} [facility] Serum or plasma non-glucuron idated bilirubin measurement (mass/volume)Ordered By: Farhan Hudson on 02-03-2024 Bilirubin.indirect [Mass/Vol] 0.4 mg/dL [facility] Transferrin [Mass/volume] in Serum or PlasmaOrdered By: Farhan Hudson on 02-03-2024 Transferrin [Mass/Vol] 138 mg/dL 203-362 [facility] Vit. B12/Folate Profileon Cobalamin (Vitamin B12) [Mass/Vol] 1412 pg/mL High 180-914 [facility] Comment on above: Performed By: #### G LULS #### Point of Care testing , Folate 9.7 ng/mL Normal >5.9 [facility] Comment on above: Result Comment: [place] te reference range: >5.9 ng/ml The WHO technical consultation on folate and vitamin b12 deficiencies has determined that folate concentrations less than 4 ng/ml are considered deficient. PERFORMED BY: [place] [address] PATHOLOGIST WINDOW DECORATOR RAFA BYRNE M.D. Performed By: #### G ALVARADO #### Point of Care testing , Vitamin B12 ser/plasOrdered By: Farhan Hudson on 02-03-2024 Cobalamin (Vitamin B12) [Mass/Vol] 1412 pg/mL 180-914 [facility] Basic Metabolic Panelon 01-17 Anion gap [Moles/Vol] 13.4 mmol/L Normal 6.0-15.0 [facility] Comment on above: Performed By: #### A HERVE STEINER #### [facility] [address] Calcium [Mass/Vol] 7.4 mg/dL Low 8.6-10.3 [facility] Comment on above: Performed By: #### A HERVE STEINER #### [facility] [address] [place] [address] [place] Chloride [Moles/Vol] 93 mmol/L Low 98-107 [facility] Comment on above: Performed By: #### A HERVE STEINER #### [facility] [address] CO2 [Moles/Vol] 25.7 mmol/L Normal 21.0-31.0 [facility] [place] Comment on above: Performed By: #### A HERVE STEINER #### [facility] [address] [place] [address] [place] Creatinine [Mass/Vol] 3.82 mg/dL Significan t change up 0.70-1.30 [facility] Comment on above: Performed By: #### A HERVE STEINER #### [facility] [address] [place] [address] [place] Creatinine Clr Calc Pharmacy 20.81 Normal [facility] Comment on above: Result Comment: PERF ORMED BY: [place] [address] PATHOLOGIST WINDOW DECORATOR RAFA BYRNE M.D. Performed By: #### A HERVE STEINER #### [facility] [address] [place] [address] [place] GFR/1.73 sq M.predicted MDRD (S/P/Bld) [Vol rate/Area] 16.313 mL/min/{1.73_m2} Normal [facility] [place] Comment on above: Performed By: #### A HERVE STEINER #### [address] Glucose [Mass/Vol] 168 mg/dL High 70-100 [facility] Comment on above: Result Comment: [place] Glucose Reference Range is dependent on time and content of last meal. Glucose of more than 200 mg/dL in a nonstressed, ambulatory subject supports the diagnosis of Diabetes Mellitus. ADA recommended reference range Performed By: #### A HERVE STEINER #### [address] Potassium [Moles/Vol] 4.1 mmol/L Normal 3.5-5.1 [facility] Comment on above: Performed By: #### A HERVE STEINER #### [address] Sodium [Moles/Vol] 128 mmol/L Low 136-145 [facility] Comment on above: Performed By: #### A HERVE STEINER #### [address] Urea nitrogen [Mass/Vol] 51 mg/dL High 7-25 [facility] Comment on above: Performed By: #### A HERVE STEINER #### [address] Complete Blood Count Auto Di ffon 02-02-2024 Basophils (Bld) [#/Vol] 0.1 10*3/uL Normal 0.0-0.2 [facility] Comment on above: Result Comment: PERF ORMED BY: [place] [address] PATHOLOGIST WINDOW DECORATOR RAFA BYRNE M.D. Performed By: #### A HERVE STEINER #### [place] [address] [place] Basophils/100 WBC (Bld) 1.0 % Normal . [facility] Comment on above: Performed By: #### A HERVE STEINER #### [facility] [address] [place] [address] [place] Eosinophils (Bld) [#/Vol] 0.4 10*3/uL Normal 0.0-0.45 [facility] Comment on above: Performed By: #### A HERVE STEINER #### [facility] [address] [place] [address] [place] Eosinophils/100 WBC (Bld) 3.1 % Normal . [facility] Comment on above: Performed By: #### A HERVE STEINER #### [address] Erythrocyte distribution width (RBC) [Ratio] 17.3 % High 12.0-14.8 [facility] Comment on above: Performed By: #### A HERVE STEINER #### [address] Hematocrit (Bld) [Volume fraction] 26.9 % Low 38.8-50.0 [facility] Comment on above: Performed By: #### A HERVE STEINER #### [address] Hemoglobin (Bld) [Mass/Vol] 8.8 g/dL Low 13.0-17.0 [facility] Comment on above: Performed By: #### A HERVE STEINER #### [place] [address] [place] Lymphocytes (Bld) [#/Vol] 1.8 10*3/uL Normal 1.00-4.8 [facility] Comment on above: Performed By: #### A HERVE STEINER #### [place] [address] [place] Lymphocytes/100 WBC (Bld) 14.8 % Normal . [facility] Comment on above: Performed By: #### A HERVE STEINER #### [address] MCH (RBC) [Entitic mass] 26.1 pg Low 27.5-35.2 [facility] Comment on above: Performed By: #### A HERVE STEINER #### [facility] [address] MCV (RBC) [Entitic vol] 79.6 fL Low 83.5-101 [facility] Comment on above: Performed By: #### A HERVE STEINER #### [facility] [address] Mean Corpuscular HGB Conc 32.8 g/dL Normal 32.5-35.6 [facility] Comment on above: Performed By: #### A HERVE STEINER #### [facility] [address] Monocytes (Bld) [#/Vol] 0.6 10*3/uL Normal 0.0-0.8 [facility] Comment on above: Performed By: #### A HERVE STEINER #### [address] Monocytes/100 WBC (Bld) 5.2 % Normal . [facility] Comment on above: Performed By: #### A HERVE STEINER #### [facility] [address] Neutrophils (Bld) [#/Vol] 9.4 10*3/uL High 1.8-7.7 [facility] Comment on above: Performed By: #### A HERVE STEINER #### [facility] [address] Neutrophils/100 WBC (Bld) 75.9 % Normal . [facility] Comment on above: Performed By: #### A HERVE STEINER #### [address] NRBC% 0.0 /100{WBC} Normal 0-0.5 [facility] Comment on above: Performed By: #### A HERVE STEINER #### [address] Platelet mean volume (Bld) [Entitic vol] 7.2 fL Normal 6.6-10.1 [facility] Comment on above: Performed By: #### A HERVE STEINER #### [facility] [address] Platelets (Bld) [#/Vol] 276 10*3/uL Normal 150-450 [facility] Comment on above: Performed By: #### A HERVE STEINER #### [address] RBC (Bld) [#/Vol] 3.37 10*6/uL Low 3.90-5.60 [facility] Comment on above: Performed By: #### A HERVE STEINER #### [facility] [address] WBC (Bld) [#/Vol] 12.4 10*3/uL High 4.1-10.5 [facility] Comment on above: Performed By: #### A HERVE STEINER #### [address] Glucose Poct Glucometerson 0 02-02-2024 Glucose [Mass/Vol] 190 mg/dL Normal [facility] Comment on above: Result Comment: [facility] Glucose Reference Range is dependent on time and content of last meal. Glucose of more than 200 mg/dL in a nonstressed, ambulatory subject supports the diagnosis of Diabetes Mellitus. PERFORMED BY: [place] [address] PATHOLOGIST WINDOW DECORATOR RAFA BYRNE M.D. Performed By: #### A HERVE STEINER #### [address] Commemt1 Glu2: Cleaned Meter Normal [facility] Comment on above: Result Comment: PERF ORMED BY: [place] [address] PATHOLOGIST WINDOW DECORATOR RAFA BYRNE M.D. Performed By: #### G ALVARADO #### Point of Care testing , Glucose [Mass/Vol] 164 mg/dL Normal [facility] Comment on above: Result Comment: [facility] Glucose Reference Range is dependent on time and content of last meal. Glucose of more than 200 mg/dL in a nonstressed, ambulatory subject supports the diagnosis of Diabetes Mellitus. Performed By: #### G LULS #### Point of Care testing , Commemt1 Glu2: Cleaned Meter Normal [facility] Comment on above: Result Comment: PERF ORMED BY: [place] [address] PATHOLOGIST WINDOW DECORATOR RAFA BYRNE M.D. Performed By: #### G LULS #### Point of Care testing , Glucose [Mass/Vol] 178 mg/dL Normal [facility] Comment on above: Result Comment: [facility] Glucose Reference Range is [...] aPTT Coag (PPP) [Time] 36.7 s 25.1-36.5 [facility] Comment on above: A hematocrit value g reater than 55% may lead to inaccurate results in coagulation testing. Patients having hematocrit values >55% require a special collection tube for coagulation studies. Please contact the laboratory at [phone] for redraw instructions. Basic Metabolic Panelon 01-17 Anion gap [Moles/Vol] 13.6 mmol/L Normal 6.0-15.0 [facility] Comment on above: Performed By: #### R ENAL #### [facility] [address] [place] [address] [place] Calcium [Mass/Vol] 7.0 mg/dL Low 8.6-10.3 [facility] Comment on above: Performed By: #### R ENAL #### [facility] [address] [place] [address] [place] Chloride [Moles/Vol] 96 mmol/L Low 98-107 [facility] Comment on above: Performed By: #### R ENAL #### [facility] [address] [place] [address] [place] CO2 [Moles/Vol] 27.5 mmol/L Normal 21.0-31.0 [facility] [place] Comment on above: Performed By: #### R ENAL #### [facility] [address] [place] [address] [place] Creatinine [Mass/Vol] 2.98 mg/dL High 0.70-1.30 [facility] Comment on above: Performed By: #### R ENAL #### [place] [address] [place] Creatinine Clr Calc Pharmacy 26.53 Normal [facility] Comment on above: Result Comment: PERF ORMED BY: [place] [address] PATHOLOGIST WINDOW DECORATOR RAFA BYRNE M.D. Performed By: #### R ENAL #### [place] [address] [place] GFR/1.73 sq M.predicted MDRD (S/P/Bld) [Vol rate/Area] 21.976 mL/min/{1.73_m2} Normal [facility] [place] Comment on above: Performed By: #### R ENAL #### [place] [address] [place] Glucose [Mass/Vol] 169 mg/dL High 70-100 [facility] Comment on above: Result Comment: [place] Glucose Reference Range is dependent on time and content of last meal. Glucose of more than 200 mg/dL in a nonstressed, ambulatory subject supports the diagnosis of Diabetes Mellitus. ADA recommended reference range Performed By: #### R ENAL #### [place] [address] [place] Potassium [Moles/Vol] 4.1 mmol/L Normal 3.5-5.1 [facility] Comment on above: Performed By: #### R ENAL #### [place] [address] [place] Sodium [Moles/Vol] 133 mmol/L Low 136-145 [facility] Comment on above: Performed By: #### R ENAL #### [address] Urea nitrogen [Mass/Vol] 35 mg/dL High 7-25 [facility] Comment on above: Performed By: #### R ENAL #### [address] Coagulation Profileon 2023 aPTT Coag (Bld) [Time] 36.7 s High 25.1-36.5 [facility] Comment on above: Result Comment: A he matocrit value greater than 55% may lead to inaccurate results in coagulation testing. Patients having hematocrit values >55% require a special collection tube for coagulation studies. Please contact the laboratory at [phone] for redraw instructions. PERFORMED BY: [place] [address] PATHOLOGIST WINDOW DECORATOR RAFA BYRNE M.D. Performed By: #### P P #### [address] Complete Blood Count Auto Di ffon 02-01-2024 Basophils (Bld) [#/Vol] 0.1 10*3/uL Normal 0.0-0.2 [facility] Comment on above: Result Comment: PERF ORMED BY: [place] [address] PATHOLOGIST WINDOW DECORATOR RAFA BYRNE M.D. Performed By: #### R ENAL #### [address] Basophils/100 WBC (Bld) 0.9 % Normal . [facility] Comment on above: Performed By: #### R ENAL #### [place] [address] [place] Eosinophils (Bld) [#/Vol] 0.2 10*3/uL Normal 0.0-0.45 [facility] Comment on above: Performed By: #### R ENAL #### [place] [address] [place] Eosinophils/100 WBC (Bld) 2.0 % Normal . [facility] Comment on above: Performed By: #### R ENAL #### [address] Erythrocyte distribution width (RBC) [Ratio] 17.2 % High 12.0-14.8 [facility] Comment on above: Performed By: #### R ENAL #### [address] Hematocrit (Bld) [Volume fraction] 25.7 % Low 38.8-50.0 [facility] Comment on above: Performed By: #### R ENAL #### [address] Hemoglobin (Bld) [Mass/Vol] 8.7 g/dL Low 13.0-17.0 [facility] Comment on above: Performed By: #### R ENAL #### [address] Lymphocytes (Bld) [#/Vol] 1.2 10*3/uL Normal 1.00-4.8 [facility] Comment on above: Performed By: #### R ENAL #### [address] Lymphocytes/100 WBC (Bld) 10.2 % Normal . [facility] Comment on above: Performed By: #### R ENAL #### [address] MCH (RBC) [Entitic mass] 26.8 pg Low 27.5-35.2 [facility] Comment on above: Performed By: #### R ENAL #### [address] MCV (RBC) [Entitic vol] 79.4 fL Low 83.5-101 [facility] Comment on above: Performed By: #### R ENAL #### [address] Mean Corpuscular HGB Conc 33.8 g/dL Normal 32.5-35.6 [facility] Comment on above: Performed By: #### R ENAL #### [facility] [address] [place] [address] [place] Monocytes (Bld) [#/Vol] 0.6 10*3/uL Normal 0.0-0.8 [facility] Comment on above: Performed By: #### R ENAL #### [address] Monocytes/100 WBC (Bld) 4.9 % Normal . [facility] Comment on above: Performed By: #### R ENAL #### [address] Neutrophils (Bld) [#/Vol] 9.4 10*3/uL High 1.8-7.7 [facility] Comment on above: Performed By: #### R ENAL #### [address] Neutrophils/100 WBC (Bld) 82.0 % Normal . [facility] Comment on above: Performed By: #### R ENAL #### [address] NRBC% 0.0 /100{WBC} Normal 0-0.5 [facility] Comment on above: Performed By: #### R ENAL #### [address] Platelet mean volume (Bld) [Entitic vol] 7.3 fL Normal 6.6-10.1 [facility] Comment on above: Performed By: #### R ENAL #### [facility] [address] [place] [address] [place] Platelets (Bld) [#/Vol] 285 10*3/uL Normal 150-450 [facility] Comment on above: Performed By: #### R ENAL #### [facility] [address] [place] [address] RBC (Bld) [#/Vol] 3.24 10*6/uL Low 3.90-5.60 [facility] Comment on above: Performed By: #### R ENAL #### [facility] [address] WBC (Bld) [#/Vol] 11.4 10*3/uL High 4.1-10.5 [facility] Comment on above: Performed By: #### R ENAL #### [address] Glucose Poct Glucometerson 0 02-01-2024 Glucose [Mass/Vol] 222 mg/dL Normal [facility] Comment on above: Result Comment: [place] Glucose Reference Range is dependent on time and content of last meal. Glucose of more than 200 mg/dL in a nonstressed, ambulatory subject supports the diagnosis of Diabetes Mellitus. PERFORMED BY: [place] [address] PATHOLOGIST WINDOW DECORATOR RAFA BYRNE M.D. Performed By: #### A HREVE STEINER #### [address] Glucose [Mass/Vol] 207 mg/dL Normal [facility] Comment on above: Result Comment: [place] Glucose Reference Range is dependent on time and content of last meal. Glucose of more than 200 mg/dL in a nonstressed, ambulatory subject supports the diagnosis of Diabetes Mellitus. PERFORMED BY: [place] [address] PATHOLOGIST WINDOW DECORATOR RAFA BYRNE M.D. Performed By: #### R ENAL #### [address] Glucose [Mass/Vol] 243 mg/dL Normal [facility] Comment on above: Result Comment: [place] Glucose Reference Range is dependent on time and content of last meal. Glucose of more than 200 mg/dL in a nonstressed, ambulatory subject supports the diagnosis of Diabetes Mellitus. PERFORMED BY: [place] [address] PATHOLOGIST WINDOW DECORATOR RAFA BYRNE M.D. Performed By: #### A HERVE STEINER #### [facility] [address] [place] [id number] [facility] Glucose [Mass/Vol] 202 mg/dL Normal [facility] Comment on above: Result Comment: [place] Glucose Reference Range is dependent on time and content of last meal. Glucose of more than 200 mg/dL in a nonstressed, ambulatory subject supports the diagnosis of Diabetes Mellitus. PERFORMED BY: [place] [address] PATHOLOGIST WINDOW DECORATOR RAFA BYRNE M.D. Performed By: #### R ENAL #### [facility] [address] [place] [address] INR in Platelet poor plasma by Coagulation assayOrdered By: Farhan Hudson on 02-01-2024 INR Coag (PPP) [Relative time] 1.9 {INR} Normal [facility] Comment on above: INR Therapeutic Rang [...] 4.5 Performed By: #### P P #### [facility] [address] [place], [place] [id number] [facility] Prothrombin time (PT)Ordered By: Farhan Hudson on 02-01-2024 PT Coag (PPP) [Time] 21.5 s High 9.0-12.9 [facility] Comment on above: A hematocrit value g reater than 55% may lead to inaccurate results in coagulation testing. Patients having hematocrit values >55% require a special collection tube for coagulation studies. Please contact the laboratory at [phone] for redraw instructions. Result Comment: A he matocrit value greater than 55% may lead to inaccurate results in coagulation testing. Patients having hematocrit values >55% require a special collection tube for coagulation studies. Please contact the laboratory at [phone] for redraw instructions. Performed By: #### P P #### [address] Basic Metabolic Panelon 01-17 Anion gap [Moles/Vol] 11.9 mmol/L Normal 6.0-15.0 [facility] Comment on above: Performed By: #### G LULS #### Point of Care testing , Calcium [Mass/Vol] 7.0 mg/dL Low 8.6-10.3 [facility] Comment on above: Performed By: #### G LULS #### Point of Care testing , Chloride [Moles/Vol] 96 mmol/L Low 98-107 [facility] Comment on above: Performed By: #### G LULS #### Point of Care testing , CO2 [Moles/Vol] 26.9 mmol/L Normal 21.0-31.0 [facility] [place] Comment on above: Performed By: #### G LULS #### Point of Care testing , Creatinine [Mass/Vol] 3.23 mg/dL Significan t change up 0.70-1.30 [facility] Comment on above: Performed By: #### G LULS #### Point of Care testing , Creatinine Clr Calc Pharmacy 24.52 [facility] Comment on above: Result Comment: PERF ORMED BY: [place] [address] PATHOLOGIST WINDOW DECORATOR RAFA BYRNE M.D. Performed By: #### G LULS #### Point of Care testing , GFR/1.73 sq M.predicted MDRD (S/P/Bld) [Vol rate/Area] 19.951 mL/min/{1.73_m2} [facility] Comment on above: Performed By: #### G LULS #### Point of Care testing , Glucose [Mass/Vol] 128 mg/dL High 70-100 [facility] Comment on above: Result Comment: [place] Glucose Reference Range is dependent on time and content of last meal. Glucose of more than 200 mg/dL in a nonstressed, ambulatory subject supports the diagnosis of Diabetes Mellitus. ADA recommended reference range Performed By: #### G LULS #### Point of Care testing , Potassium [Moles/Vol] 3.8 mmol/L Normal 3.5-5.1 [facility] Comment on above: Performed By: #### G LULS #### Point of Care testing , Sodium [Moles/Vol] 131 mmol/L Low 136-145 [facility] Comment on above: Performed By: #### G LULS #### Point of Care testing , Urea nitrogen [Mass/Vol] 46 mg/dL High 7-25 [facility] Comment on above: Performed By: #### G LULS #### Point of Care testing , Complete Blood Count Auto Di ffon 01-31-2024 Basophils (Bld) [#/Vol] 0.1 10*3/uL Normal 0.0-0.2 [facility] Comment on above: Result Comment: PERF ORMED BY: [place] [address] PATHOLOGIST WINDOW DECORATOR RAFA BYRNE M.D. Performed By: #### R ENAL #### [facility] [address] [place] [address] [place] Basophils/100 WBC (Bld) 0.7 % Normal . [facility] Comment on above: Performed By: #### R ENAL #### [facility] [address] [place] [address] [place] Eosinophils (Bld) [#/Vol] 0.3 10*3/uL Normal 0.0-0.45 [facility] Comment on above: Performed By: #### R ENAL #### [facility] [address] [place] [address] [place] Eosinophils/100 WBC (Bld) 2.3 % Normal . [facility] Comment on above: Performed By: #### R ENAL #### [facility] [address] Erythrocyte distribution width (RBC) [Ratio] 17.5 % High 12.0-14.8 [facility] Comment on above: Performed By: #### R ENAL #### [facility] [address] Hematocrit (Bld) [Volume fraction] 25.6 % Low 38.8-50.0 [facility] Comment on above: Performed By: #### R ENAL #### [facility] [address] Hemoglobin (Bld) [Mass/Vol] 8.6 g/dL Low 13.0-17.0 [facility] Comment on above: Performed By: #### R ENAL #### [address] Lymphocytes (Bld) [#/Vol] 1.3 10*3/uL Normal 1.00-4.8 [facility] Comment on above: Performed By: #### R ENAL #### [address] Lymphocytes/100 WBC (Bld) 10.4 % Normal . [facility] Comment on above: Performed By: #### R ENAL #### [address] MCH (RBC) [Entitic mass] 26.7 pg Low 27.5-35.2 [facility] Comment on above: Performed By: #### R ENAL #### [address] MCV (RBC) [Entitic vol] 79.0 fL Low 83.5-101 [facility] Comment on above: Performed By: #### R ENAL #### [address] Mean Corpuscular HGB Conc 33.7 g/dL Normal 32.5-35.6 [facility] Comment on above: Performed By: #### R ENAL #### [address] [address] [place] Monocytes (Bld) [#/Vol] 0.6 10*3/uL Normal 0.0-0.8 [facility] Comment on above: Performed By: #### R ENAL #### [address] Monocytes/100 WBC (Bld) 4.9 % Normal . [facility] Comment on above: Performed By: #### R ENAL #### [address] Neutrophils (Bld) [#/Vol] 10.0 10*3/uL High 1.8-7.7 [facility] Comment on above: Performed By: #### R ENAL #### [address] Neutrophils/100 WBC (Bld) 81.7 % Normal . [facility] Comment on above: Performed By: #### R ENAL #### [address] NRBC% 0.0 /100{WBC} Normal 0-0.5 [facility] Comment on above: Performed By: #### R ENAL #### [address] Platelet mean volume (Bld) [Entitic vol] 7.2 fL Normal 6.6-10.1 [facility] Comment on above: Performed By: #### R ENAL #### [place] [address] [place] Platelets (Bld) [#/Vol] 254 10*3/uL Normal 150-450 [facility] Comment on above: Performed By: #### R ENAL #### [address] RBC (Bld) [#/Vol] 3.24 10*6/uL Low 3.90-5.60 [facility] Comment on above: Performed By: #### R ENAL #### [place] [address] [place] WBC (Bld) [#/Vol] 12.2 10*3/uL High 4.1-10.5 [facility] Comment on above: Performed By: #### R UZAIR #### [place] [id number] [facility] Glucose Poct Glucometerson 0 01-31-2024 Glucose [Mass/Vol] 116 mg/dL Normal [facility] Comment on above: Result Comment: [place] Glucose Reference Range is dependent on time and content of last meal. Glucose of more than 200 mg/dL in a nonstressed, ambulatory subject supports the diagnosis of Diabetes Mellitus. PERFORMED BY: [place] [address] PATHOLOGIST WINDOW DECORATOR RAFA BYRNE M.D. Performed By: #### A HERVE STEINER #### [address] Glucose [Mass/Vol] 191 mg/dL Normal [facility] Comment on above: Result Comment: [facility] Glucose Reference Range is dependent on time and content of last meal. Glucose of more than 200 mg/dL in a nonstressed, ambulatory subject supports the diagnosis of Diabetes Mellitus. PERFORMED BY: [place] [address] PATHOLOGIST WINDOW DECORATOR RAFA BYRNE M.D. Performed By: #### P P #### [place] [id number] [facility] Glucose [Mass/Vol] 145 mg/dL Normal [facility] Comment on above: Result Comment: [facility] Glucose Reference Range is dependent on time and content of last meal. Glucose of more than 200 mg/dL in a nonstressed, ambulatory subject supports the diagnosis of Diabetes Mellitus. PERFORMED BY: [place] [address] PATHOLOGIST WINDOW DECORATOR RAFA BYRNE M.D. Performed By: #### P P #### [place] [id number] [facility] Albumin Levelon 01-30-2024 Albumin [Mass/Vol] 2.3 g/dL Low 3.5-5.7 [facility] Comment on above: Result Comment: PERF ORMED BY: [facility] [address] [place] [address] PATHOLOGIST WINDOW DECORATOR RAFA BYRNE M.D. Performed By: #### G LULS #### Point of Care testing , Basic Metabolic Panelon 01-17 Anion gap [Moles/Vol] 15.3 mmol/L High 6.0-15.0 [facility] Comment on above: Performed By: #### G LULS #### Point of Care testing , Calcium [Mass/Vol] 7.1 mg/dL Low 8.6-10.3 [facility] Comment on above: Performed By: #### G LULS #### Point of Care testing , Chloride [Moles/Vol] 95 mmol/L Low 98-107 [facility] Comment on above: Performed By: #### G LULS #### Point of Care testing , CO2 [Moles/Vol] 21.9 mmol/L Normal 21.0-31.0 [facility] [place] Comment on above: Performed By: #### G LULS #### Point of Care testing , Creatinine [Mass/Vol] 4.57 mg/dL Significan t change up 0.70-1.30 [facility] Comment on above: Performed By: #### G LULS #### Point of Care testing , Creatinine Clr Calc Pharmacy 17.22 [facility] Comment on above: Result Comment: PERF ORMED BY: [facility] [address] [place] [address] PATHOLOGIST WINDOW DECORATOR RAFA BYRNE M.D. Performed By: #### G LULS #### Point of Care testing , GFR/1.73 sq M.predicted MDRD (S/P/Bld) [Vol rate/Area] 13.156 mL/min/{1.73_m2} [facility] Comment on above: Performed By: #### G LULS #### Point of Care testing , Glucose [Mass/Vol] 144 mg/dL High 70-100 [facility] Comment on above: Result Comment: [place] Glucose Reference Range is dependent on time and content of last meal. Glucose of more than 200 mg/dL in a nonstressed, ambulatory subject supports the diagnosis of Diabetes Mellitus. ADA recommended reference range Performed By: #### G LULS #### Point of Care testing , Potassium [Moles/Vol] 4.2 mmol/L Significan t change down 3.5-5.1 [facility] Comment on above: Performed By: #### G LULS #### Point of Care testing , Sodium [Moles/Vol] 128 mmol/L Low 136-145 [facility] Comment on above: Performed By: #### G LULS #### Point of Care testing , Urea nitrogen [Mass/Vol] 73 mg/dL Significant change up 7-25 [facility] Comment on above: Performed By: #### G LULS #### Point of Care testing , Complete Blood Count Auto Di ffon 01-30-2024 Basophils (Bld) [#/Vol] 0.1 10*3/uL Normal 0.0-0.2 [facility] Comment on above: Result Comment: PERF ORMED BY: [facility] [address] [place] [address] PATHOLOGIST WINDOW DECORATOR RAFA BYRNE M.D. Performed By: #### G LULS #### Point of Care testing , Basophils/100 WBC (Bld) 1.0 % Normal . [facility] Comment on above: Performed By: #### G LULS #### Point of Care testing , Eosinophils (Bld) [#/Vol] 0.2 10*3/uL Normal 0.0-0.45 [facility] Comment on above: Performed By: #### G LULS #### Point of Care testing , Eosinophils/100 WBC (Bld) 1.7 % Normal . [facility] Comment on above: Performed By: #### G LULS #### Point of Care testing , Erythrocyte distribution width (RBC) [Ratio] 17.3 % High 12.0-14.8 [facility] Comment on above: Performed By: #### G ALVARADO #### Point of Care testing , Hematocrit (Bld) [Volume fraction] 26.3 % Low 38.8-50.0 [facility] Comment on above: Performed By: #### G EANLS #### Point of Care testing , Hemoglobin (Bld) [Mass/Vol] 8.8 g/dL Low 13.0-17.0 [facility] Comment on above: Performed By: #### Georgette MCKOYLS #### Point of Care testing , Lymphocytes (Bld) [#/Vol] 1.3 10*3/uL Normal 1.00-4.8 [facility] Comment on above: Performed By: #### Georgette MCKOYLS #### Point of Care testing , Lymphocytes/100 WBC (Bld) 9.8 % Normal . [facility] Comment on above: Performed By: #### Georgette MCKOYLS #### Point of Care testing , MCH (RBC) [Entitic mass] 26.6 pg Low 27.5-35.2 [facility] Comment on above: Performed By: #### G ALVARADO #### Point of Care testing , MCV (RBC) [Entitic vol] 79.3 fL Low 83.5-101 [facility] Comment on above: Performed By: #### Georgette MCKOYLS #### Point of Care testing , Mean Corpuscular HGB Conc 33.5 g/dL Normal 32.5-35.6 [facility] Comment on above: Performed By: #### Georgette CHILDERS #### Point of Care testing , Monocytes (Bld) [#/Vol] 0.5 10*3/uL Normal 0.0-0.8 [facility] Comment on above: Performed By: #### Georgette CHILDERS #### Point of Care testing , Monocytes/100 WBC (Bld) 3.8 % Normal . [facility] Comment on above: Performed By: #### Georgette CHILDERS #### Point of Care testing , Neutrophils (Bld) [#/Vol] 11.3 10*3/uL High 1.8-7.7 [facility] Comment on above: Performed By: #### G EANLS #### Point of Care testing , Neutrophils/100 WBC (Bld) 83.7 % Normal . [facility] Comment on above: Performed By: #### G EANLS #### Point of Care testing , NRBC% 0.0 /100{WBC} Normal 0-0.5 [facility] Comment on above: Performed By: #### G EANLS #### Point of Care testing , Platelet mean volume (Bld) [Entitic vol] 7.5 fL Normal 6.6-10.1 [facility] Comment on above: Performed By: #### G EANLS #### Point of Care testing , Platelets (Bld) [#/Vol] 279 10*3/uL Normal 150-450 [facility] Comment on above: Performed By: #### G EANLS #### Point of Care testing , RBC (Bld) [#/Vol] 3.32 10*6/uL Low 3.90-5.60 [facility] Comment on above: Performed By: #### G EANLS #### Point of Care testing , WBC (Bld) [#/Vol] 13.6 10*3/uL High 4.1-10.5 [facility] Comment on above: Performed By: #### G EANLS #### Point of Care testing , Glucose Poct Glucometerson 0 01-30-2024 Glucose [Mass/Vol] 220 mg/dL Normal [facility] Comment on above: Result Comment: [facility] Glucose Reference Range is dependent on time and content of last meal. Glucose of more than 200 mg/dL in a nonstressed, ambulatory subject supports the diagnosis of Diabetes Mellitus. PERFORMED BY: [address] [place] [address] PATHOLOGIST WINDOW DECORATOR RAFA BYRNE M.D. Performed By: #### G LULS #### Point of Care testing , Glucose [Mass/Vol] 176 mg/dL Normal [facility] Comment on above: Result Comment: [facility] Glucose Reference Range is dependent on time and content of last meal. Glucose of more than 200 mg/dL in a nonstressed, ambulatory subject supports the diagnosis of Diabetes Mellitus. PERFORMED BY: [place] [address] PATHOLOGIST WINDOW DECORATOR RAFA BYRNE M.D. Performed By: #### P P #### [address] Glucose [Mass/Vol] 294 mg/dL Normal [facility] Comment on above: Result Comment: [facility] Glucose Reference Range is dependent on time and content of last meal. Glucose of more than 200 mg/dL in a nonstressed, ambulatory subject supports the diagnosis of Diabetes Mellitus. PERFORMED BY: [place] [address] PATHOLOGIST WINDOW DECORATOR RAFA BYRNE M.D. Performed By: #### G LULS #### Point of Care testing , Glucose [Mass/Vol] 170 mg/dL Normal [facility] Comment on above: Result Comment: [facility] Glucose Reference Range is dependent on time and content of last meal. Glucose of more than 200 mg/dL in a nonstressed, ambulatory subject supports the diagnosis of Diabetes Mellitus. PERFORMED BY: [place] [address] PATHOLOGIST WINDOW DECORATOR RAFA BYRNE M.D. Performed By: #### G LULS #### Point of Care testing , Hepatitis Acute Panelon 01-17 HBsAg Screen Negative Normal Negative [facility] Comment on above: Performed By: #### A HERVE STEINER #### [address] Hepatitis A Antibody IgM Negative Normal Negative [facility] Comment on above: Performed By: #### A HERVE STEINER #### [address] Hepatitis B Core Antibody IgM Negative Normal Negative [facility] Comment on above: Performed By: #### A HERVE STEIENR #### [address] Hepatitis C Virus Antibody Non-Reactive Normal Non Reactive [facility] Comment on above: Performed By: #### A HERVE STEINER #### [address] Interpretation Hepatitis C Normal . [facility] Comment on above: Result Comment: Not infected with HCV unless early or acute infection is suspected (which may be delayed in an immunocompromised individual), or other evidence exists to indicate HCV infection. Performed By: #### A HERVE STEINER #### [address] Hepatitis B Core Antibodyon 01-30-2024 Hepatitis B Core Antibody Negative Normal Negative [facility] Comment on above: Result Comment: Perf ormed at: - [facility] [address] [id number] Floral Designer Salesperson: Alexis Winslow PhD, Phone: [phone] PERFORMED BY: [place] [address] PATHOLOGIST WINDOW DECORATOR RAFA BYRNE M.D. Performed By: #### P P #### [address] Hepatitis B Surface Antibody on 01-30-2024 Hepatitis B Surface Antibody Non-Reactive Normal . [facility] Comment on above: Result Comment: Non Reactive: Inconsistent with immunity, less than 10 mIU/mL Reactive: Consistent with immunity, greater than 9.9 mIU/mL Performed By: #### P P #### [address] Hepatitis B virus surface Ab [Presence] in SerumOrdered By: Lia Law on 01-30-2024 HBV surface Ab Ql (S) Non-Reactive . [facility] Comment on above: Non Reactive: Incons istent with immunity, less than 10 mIU/mL Reactive: Consistent with immunity, greater than 9.9 mIU/mL Hepatitis B virus surface Ag [Presence] in Serum or Plasma by ImmunoassayOrdered By: Lia Law on 01-30-2024 HBV surface Ag IA Ql Negative Negative [facility] Hepatitis C virus IgG Ab [Pr esence] in Serum or Plasma by ImmunoassayOrdered By: Lia Law on 01-30-2024 HCV IgG IA Ql Non-Reactive Non Reactive [facility] Hepatitis C virus RNA [Units /volume] (viral load) in Serum or Plasma by RADHA with probOrdered By: Lia Law on 01-30-2024 HCV RNA RADHA+probe Qn N/A [facility] Hepatitis C virus RNA [log u nits/volume] (viral load) in Serum or Plasma by RADHA withOrdered By: Lia Law on 01-30-2024 HCV RNA RADHA+probe [Log units/Vol] N/A [facility] No Panel InformationOrdered By: Lia Law on 01-30-2024 Hepatitis A IgM Antibody Negative Negative [facility] Hepatitis B Core IgM Antibody Negative Negative [facility] Hepatitis B Core Total Antibody Negative Negative [facility] [facility] Comment on above: Performed at: [address] [id number] Director: Alexis Winslow PhD, Phone: [phone] Hepatitis C Interpretation See comment . [facility] Comment on above: Not infected with HC V unless early or acute infection issuspected (which may be delayed in an immunocompromisedindividual), or other evidence exists to indicate HCVinfection. Total Proteinon 01-30-2024 Protein [Mass/Vol] 6.6 g/dL Normal 6.4-8.9 [facility] Comment on above: Performed By: #### G LULS #### Point of Care testing , US arterial pvr rest Sebastian US arterial pvr rest LE [facility] [place] [address] Ultrasound Report Signed Patient: Adwoa Porter MR#: [id number] 7 : 1955 Acct:[id number] Age/Sex: 68 / M ADM Date: 01/28/24 Loc: Room: [address] [place] [address] Type: ADM IN Attending Dr: Farhan Hudson [...] Raul Bravo MD01/30/2024 2:51 PM Dictation Location: [place] [address] Tech: Marline Fishkatt Transcribed By: CONSUELO 01/30/24 1451 Dictated By: Raul Bravo MD 01/30/24 1450 Signed By: 01/30/24 1451 Normal [facility] Aerobic cultureOrdered By: Ayo Hudson on 01-29-2024 Bacteria identified Aer cx Nom (Unsp spec) 2 Days [facility] Amorphous urine sedimentOrde red By: Farhan Hudson on 01-29-2024 Amorphous sediment LM Ql (Urine sed) 2+ [LPF] [facility] Automated erythrocytes count in urine sediment (number/area)Ordered By: Farhan Hudson on 01-29-2024 RBC Auto (Urine sed) [#/Area] 20-49 [HPF] 0-4 [facility] Automated leukocytes count i n urine sediment (number/area)Ordered By: Farhan Hudson on 01-29-2024 WBC Auto (Urine sed) [#/Area] 5-9 [HPF] 0-4 [facility] Basic Metabolic Panelon 01-17 Anion gap [Moles/Vol] 18.7 mmol/L High 6.0-15.0 [facility] Comment on above: Performed By: #### G LULS #### Point of Care testing , Calcium [Mass/Vol] 7.3 mg/dL Low 8.6-10.3 [facility] Comment on above: Performed By: #### G LULS #### Point of Care testing , Chloride [Moles/Vol] 95 mmol/L Low 98-107 [facility] Comment on above: Performed By: #### G LULS #### Point of Care testing , CO2 [Moles/Vol] 15.4 mmol/L Low 21.0-31.0 [facility] Comment on above: Performed By: #### G LULS #### Point of Care testing , Creatinine [Mass/Vol] 5.37 mg/dL High 0.70-1.30 [facility] Comment on above: Performed By: #### G LULS #### Point of Care testing , Creatinine Clr Calc Pharmacy 14.89 [facility] Comment on above: Result Comment: PERF ORMED BY: [facility] [address] [place] [address] PATHOLOGIST WINDOW DECORATOR RAFA BYRNE M.D. Performed By: #### G LULS #### Point of Care testing , GFR/1.73 sq M.predicted MDRD (S/P/Bld) [Vol rate/Area] 10.840 mL/min/{1.73_m2} [facility] Comment on above: Performed By: #### G LULS #### Point of Care testing , Glucose [Mass/Vol] 211 mg/dL High 70-100 [facility] Comment on above: Result Comment: [place] Glucose Reference Range is dependent on time and content of last meal. Glucose of more than 200 mg/dL in a nonstressed, ambulatory subject supports the diagnosis of Diabetes Mellitus. ADA recommended reference range Performed By: #### G LULS #### Point of Care testing , Potassium [Moles/Vol] 6.1 mmol/L Off scale high 3.5-5.1 [facility] Comment on above: Result Comment: Crit ical Result Called to and read back by: LEXI JOSEPH at: 01/29/2024 06:33:36 by:OSCAR Performed By: #### G LULS #### Point of Care testing , Sodium [Moles/Vol] 123 mmol/L Off scale low 136-145 [facility] Comment on above: Result Comment: Crit ical Result Called to and read back by: LEXI JOSEPH at: 01/29/2024 06:33:36 by:OSCAR Performed By: #### G LULS #### Point of Care testing , Urea nitrogen [Mass/Vol] 105 mg/dL High 7-25 [facility] Comment on above: Performed By: #### G LULS #### Point of Care testing , Bilirubin Test strip Ql (U)O rdered By: Farhan Hudson on 01-29-2024 Bilirubin Ql (U) Negative Negative [facility] Clostridium Difficileon 01-17 Clostridium Difficile Negative Normal Negative [facility] Comment on above: Order Comment: > or = to 3 loose/watery stools in the last 24 HRS? Y Is patient on promotility agents or tube feeding? N Result Comment: Test ing performed by RT-PCR PERFORMED BY: [place] [address] [address] [address] PATHOLOGIST WINDOW DECORATOR RAFA BYRNE M.D. Performed By: #### G LULS #### Point of Care testing , Coagulation Profileon 2023 aPTT Coag (Bld) [Time] 43.4 s High 25.1-36.5 [facility] Comment on above: Result Comment: A he matocrit value greater than 55% may lead to inaccurate results in coagulation testing. Patients having hematocrit values >55% require a special collection tube for coagulation studies. Please contact the laboratory at [phone] for redraw instructions. PERFORMED BY: [facility] [address] [place] [address] PATHOLOGIST WINDOW DECORATOR RAFA BYRNE M.D. Performed By: #### G LULS #### Point of Care testing , INR Coag (PPP) [Relative time] 2.6 {INR} Normal [facility] Comment on above: Result Comment: INR [...] Coag (PPP) [Time] 29.2 s High 9.0-12.9 [facility] Comment on above: Result Comment: A he matocrit value greater than 55% may lead to inaccurate results in coagulation testing. Patients having hematocrit values >55% require a special collection tube for coagulation studies. Please contact the laboratory at [phone] for redraw instructions. Performed By: #### G LULS #### Point of Care testing , Color Auto (U)Ordered By: Nidia Hudson on 01-29-2024 Color (U) Dark yellow Yellow [facility] Complete Blood Count Auto Di ffon 01-29-2024 Basophils (Bld) [#/Vol] 0.1 10*3/uL Normal 0.0-0.2 [facility] Comment on above: Result Comment: PERF ORMED BY: [facility] [address] [place] [address] PATHOLOGIST WINDOW DECORATOR RAFA BYRNE M.D. Performed By: #### G LULS #### Point of Care testing , Basophils/100 WBC (Bld) 0.7 % Normal . [facility] Comment on above: Performed By: #### G LULS #### Point of Care testing , Eosinophils (Bld) [#/Vol] 0.2 10*3/uL Normal 0.0-0.45 [facility] Comment on above: Performed By: #### G LULS #### Point of Care testing , Eosinophils/100 WBC (Bld) 1.1 % Normal . [facility] Comment on above: Performed By: #### G LULS #### Point of Care testing , Erythrocyte distribution width (RBC) [Ratio] 17.4 % High 12.0-14.8 [facility] Comment on above: Performed By: #### G EANLS #### Point of Care testing , Hematocrit (Bld) [Volume fraction] 29.5 % Low 38.8-50.0 [facility] Comment on above: Performed By: #### G EANLS #### Point of Care testing , Hemoglobin (Bld) [Mass/Vol] 9.9 g/dL Low 13.0-17.0 [facility] Comment on above: Performed By: #### G EANLS #### Point of Care testing , Lymphocytes (Bld) [#/Vol] 1.3 10*3/uL Normal 1.00-4.8 [facility] Comment on above: Performed By: #### G EANLS #### Point of Care testing , Lymphocytes/100 WBC (Bld) 6.8 % Normal . [facility] Comment on above: Performed By: #### G EANLS #### Point of Care testing , MCH (RBC) [Entitic mass] 26.7 pg Low 27.5-35.2 [facility] Comment on above: Performed By: #### G EANLS #### Point of Care testing , MCV (RBC) [Entitic vol] 79.7 fL Low 83.5-101 [facility] Comment on above: Performed By: #### G EANLS #### Point of Care testing , Mean Corpuscular HGB Conc 33.5 g/dL Normal 32.5-35.6 [facility] Comment on above: Performed By: #### G EANLS #### Point of Care testing , Monocytes (Bld) [#/Vol] 0.5 10*3/uL Normal 0.0-0.8 [facility] Comment on above: Performed By: #### G EANLS #### Point of Care testing , Monocytes/100 WBC (Bld) 2.7 % Normal . [facility] Comment on above: Performed By: #### G EANLS #### Point of Care testing , Neutrophils (Bld) [#/Vol] 16.7 10*3/uL High 1.8-7.7 [facility] Comment on above: Performed By: #### G ALVARADO #### Point of Care testing , Neutrophils/100 WBC (Bld) 88.7 % Normal . [facility] Comment on above: Performed By: #### G EANLS #### Point of Care testing , NRBC% 0.0 /100{WBC} Normal 0-0.5 [facility] Comment on above: Performed By: #### G EANLS #### Point of Care testing , Platelet mean volume (Bld) [Entitic vol] 7.8 fL Normal 6.6-10.1 [facility] Comment on above: Performed By: #### G ALVARADO #### Point of Care testing , Platelets (Bld) [#/Vol] 326 10*3/uL Normal 150-450 [facility] Comment on above: Performed By: #### G ALVARADO #### Point of Care testing , RBC (Bld) [#/Vol] 3.71 10*6/uL Low 3.90-5.60 [facility] Comment on above: Performed By: #### G ALVARADO #### Point of Care testing , WBC (Bld) [#/Vol] 18.8 10*3/uL High 4.1-10.5 [facility] Comment on above: Performed By: #### G ALVARADO #### Point of Care testing , Dipstick and Microscopicon 0 01-29-2024 Amorphous Sediment,Urine 2+ Normal [facility] Comment on above: Order Comment: Name Collection Type:: Voided Performed By: #### P P #### [facility] [address] [place] [address] [place] Appearance (U) Cloudy Critically abnormal Clear [facility] Comment on above: Order Comment: Name Collection Type:: Voided Performed By: #### P P #### [facility] [address] [place] [address] [place] Bacteria,Urine Rare High None Seen [facility] Comment on above: Order Comment: Name Collection Type:: Voided Performed By: #### P P #### [facility] [address] [place] [address] [place] Bilirubin,Urine Negative Normal Negative [facility] Comment on above: Order Comment: Name Collection Type:: Voided Performed By: #### P P #### [facility] [address] [place] [address] [place] Color (U) Dark Yellow Critically abnormal Yellow [facility] Comment on above: Order Comment: Name Collection Type:: Voided Performed By: #### P P #### [facility] [address] [place] [address] Glucose Ql (U) 500 mg/dL High Normal [facility] Comment on above: Order Comment: Name Collection Type:: Voided Performed By: #### P P #### [facility] [address] [place] [address] [place] Hyaline Casts,Urine 0-8 Normal 0-8 [facility] Comment on above: Order Comment: Name Collection Type:: Voided Performed By: #### P P #### [facility] [address] [place] [address] Ketones Ql (U) Trace High Negative [facility] Comment on above: Order Comment: Name Collection Type:: Voided Performed By: #### P P #### [facility] [address] [place] [address] Leukocyte esterase Test strip Ql (U) 3+ High Negative [facility] Comment on above: Order Comment: Name Collection Type:: Voided Performed By: #### P P #### [facility] [address] [place] [address] [place] Nitrite,Urine Negative Normal Negative [facility] Comment on above: Order Comment: Name Collection Type:: Voided Performed By: #### P P #### [facility] [address] [place] [address] [place] Occult Blood,Urine 3+ High Negative [facility] Comment on above: Order Comment: Name Collection Type:: Voided Result Comment: PERF ORMED BY: [place] [address] PATHOLOGIST WINDOW DECORATOR RAFA BYRNE M.D. Performed By: #### P P #### [address] pH (U) 5.0 [pH] Normal 5.0-9.0 [facility] Comment on above: Order Comment: Name Collection Type:: Voided Performed By: #### P P #### [address] Protein (U) [Mass/Vol] 100 mg/dL High Negative [facility] Comment on above: Order Comment: Name Collection Type:: Voided Performed By: #### P P #### [address] RBC,Urine 20-49 High 0-4 [facility] Comment on above: Order Comment: Name Collection Type:: Voided Performed By: #### P P #### [address] Specificy [place],Urine 1.019 Normal 1.001-1.03 0 [facility] Comment on above: Order Comment: Name Collection Type:: Voided Performed By: #### P P #### [address] Squamous Epithelial Cell,Urine 0-1 Normal 0-2 [facility] Comment on above: Order Comment: Name Collection Type:: Voided Performed By: #### P P #### [address] Urobilinogen,Urine Normal Normal Normal [facility] Comment on above: Order Comment: Name Collection Type:: Voided Performed By: #### P P #### [address] WBC,Urine 5-9 High 0-4 [facility] Comment on above: Order Comment: Name Collection Type:: Voided Performed By: #### P P #### [address] Yeast,Urine Budding Yeast Critically abnormal None Seen [facility] Comment on above: Order Comment: Name Collection Type:: Voided Result Comment: PERF ORMED BY: [place] [id number] PATHOLOGIST WINDOW DECORATOR RAFA BYRNE M.D. Performed By: #### P P #### [place] [id number] [facility] ECG 12 lead ECGon 01-29-2024 ECG 12 lead ECG [facility] [address] [place] [address] [place] [address] Electrocardiograph Report Signed Patient: Adwoa Porter MR#: [id number] 7 : 1955 Acct:[id number] Age/Sex: 68 / M ADM Date: 01/28/24 Loc: Room: [address] [place] [address] Type: ADM IN Attending Dr: Farhan Hudson [...] David Root MD 0 01/30/24 1202 Normal [facility] Glucose Poct Glucometerson 0 01-29-2024 Glucose [Mass/Vol] 256 mg/dL Normal [facility] Comment on above: Result Comment: [place] Glucose Reference Range is dependent on time and content of last meal. Glucose of more than 200 mg/dL in a nonstressed, ambulatory subject supports the diagnosis of Diabetes Mellitus. PERFORMED BY: [address] [place] [address] PATHOLOGIST WINDOW DECORATOR RAFA BYRNE M.D. Performed By: #### P P #### [facility] [address] Glucose [Mass/Vol] 236 mg/dL Normal [facility] Comment on above: Result Comment: [place] om Glucose Reference Range is dependent on time and content of last meal. Glucose of more than 200 mg/dL in a nonstressed, ambulatory subject supports the diagnosis of Diabetes Mellitus. PERFORMED BY: [place] [address] PATHOLOGIST WINDOW DECORATOR RAFA BYRNE M.D. Performed By: #### G LULS #### Point of Care testing , Glucose [Mass/Vol] 214 mg/dL Normal [facility] Comment on above: Result Comment: [place] Glucose Reference Range is dependent on time and content of last meal. Glucose of more than 200 mg/dL in a nonstressed, ambulatory subject supports the diagnosis of Diabetes Mellitus. PERFORMED BY: [place] [address] PATHOLOGIST WINDOW DECORATOR RAFA BYRNE M.D. Performed By: #### G LULS #### Point of Care testing , Glucose [Mass/Vol] 273 mg/dL Normal [facility] Comment on above: Result Comment: [place] om Glucose Reference Range is dependent on time and content of last meal. Glucose of more than 200 mg/dL in a nonstressed, ambulatory subject supports the diagnosis of Diabetes Mellitus. PERFORMED BY: [place] [address] PATHOLOGIST WINDOW DECORATOR RAFA BYRNE M.D. Performed By: #### P P #### [place] [address] [place] Glucose [Mass/Vol] 255 mg/dL Normal [facility] Comment on above: Result Comment: [place] om Glucose Reference Range is dependent on time and content of last meal. Glucose of more than 200 mg/dL in a nonstressed, ambulatory subject supports the diagnosis of Diabetes Mellitus. PERFORMED BY: [address] [place] [address] PATHOLOGIST WINDOW DECORATOR RAFA BYRNE M.D. Performed By: #### G LUCAROL #### Point of Care testing , Ketones Auto test strip (U) [Mass/Vol]Ordered By: Farhan Hudson on 01-29-2024 Ketones (U) [Mass/Vol] Trace Negative [facility] - UrinalysisOrder ed By: Farhan Hudson on 01-29-2024 Hyaline casts LM Ql (Urine sed) 0-8 [LPF] 0-8 [facility] Nitrite Test strip Ql (U)Ord ered By: Farhan Hudson on 01-29-2024 Nitrite Ql (U) Negative Negative [facility] Protein Auto test strip (U) [Mass/Vol]Ordered By: Farhan Hudson on 01-29-2024 Protein (U) [Mass/Vol] 100 mg/dL Negative [facility] Specific gravity Auto test s trip (U) [Rel density]Ordered By: Farhan Hudson on 01-29-2024 Specific gravity (U) [Rel density] 1.019 1.001-1.03 0 [facility] Squamous epithelial cells de tection in urine sediment by light microscopyOrdered By: Farhan Hudson on 01-29-2024 Epithelial cells.squamous LM Ql (Urine sed) 0-1 [HPF] 0-2 [facility] Superficial Wound Cultureon 01-29-2024 Superficial Wound Culture Light Normal Skin Cedric 2 Days PERFORMED BY: [address] [address] PATHOLOGIST WINDOW DECORATOR RAFA BYRNE M.D. Normal [facility] Comment on above: Performed By: #### G LULS #### Point of Care testing , Urine Cultureon 01-29-2024 Bacteria identified Cx Nom (U) Results called at 0841 on 02/02/24 ORGANISM: Klebsiella variicola (O:KLEVAR) [place] Count 15,000 Organism Comments Multidrug Resistant Organism [...] RESISTANT TO ALL B-LACTAM DRUGS. PERFORMED BY: [place] [address] PATHOLOGIST WINDOW DECORATOR RAFA BYRNE M.D. [facility] Comment on above: Performed By: #### P P #### [address] Urine bacteria detection by automated methodOrdered By: Farhan Hudson on 01-29-2024 Bacteria Auto Ql (U) Rare None Seen [facility] Urine clarity by refractomet ry automatedOrdered By: Farhan Hudson on 01-29-2024 Clarity Refractometry automated (U) Cloudy Clear [facility] Urine culture routineOrdered By: Farhan Hudson on 01-29-2024 Bacteria identified Cx Nom (U) Klebsiella variicola [facility] Urine glucose measurement by automated test strip (mass/volume)Ordered By: Farhan Hudson on 01-29-2024 Glucose Auto test strip (U) [Mass/Vol] 500 mg/dL Normal [facility] Urine hemoglobin detection b y automated test stripOrdered By: Farhan Hudson on 01-29-2024 Hemoglobin Auto test strip Ql (U) 3+ Negative [facility] Urine leukocyte esterase det ection by automated test stripOrdered By: Farhan Hudson on 01-29-2024 Leukocyte esterase Auto test strip Ql (U) 3+ Negative [facility] Urobilinogen Auto test strip (U) [Mass/Vol]Ordered By: Farhan Hudson on 01-29-2024 Urobilinogen (U) [Mass/Vol] Normal mg/dL Normal [facility] Yeast detection in urine sed iment by light microscopyOrdered By: Farhan Hudson on 01-29-2024 Yeast LM Ql (Urine sed) Budding yeast [HPF] None Seen [facility] pH Auto test strip (U)Ordere d By: Farhan Hudson on 01-29-2024 pH (U) 5.0 [pH] 5.0-9.0 [facility] Amikacin [Mass/volume] in Se rum or Plasma --randomOrdered By: Farhan Hudson on 01-28-2024 Amikacin random [Mass/Vol] See comment [facility] Comment on above: See report. Scanned copy available in EMR. Amikacin, Random (CCF)on Amikacin, Random ([facility]F) Normal [facility] Comment on above: Result Comment: See report. Scanned copy available in EMR. PERFORMED BY: [place] [address] PATHOLOGIST WINDOW DECORATOR RAFA BYRNE M.D. Performed By: #### A HERVE STEINER #### [address] B-Type Natriuretic Peptideon 01-28-2024 Natriuretic peptide B (Bld) [Mass/Vol] 1652.0 pg/mL High 5-100 [facility] Comment on above: Result Comment: PERF ORMED BY: [place] [address] PATHOLOGIST WINDOW DECORATOR RAFA BYRNE M.D. Performed By: #### G ALVARADO #### Point of Care testing , Clostridioides difficile tox in B tcdB gene [Presence] in Stool by RADHA with probe deteOrdered By: Farhan Hudson on 01-28-2024 C. difficile toxin B tcdB gene RADHA+probe Ql (Stl) Negative Negative [facility] Comment on above: Testing performed by RT-PCR Complete Blood Count Auto Di ffon 01-28-2024 Basophils (Bld) [#/Vol] 0.1 10*3/uL Normal 0.0-0.2 [facility] Comment on above: Result Comment: PERF ORMED BY: [place] [address] PATHOLOGIST WINDOW DECORATOR RAFA BYRNE M.D. Performed By: #### P P #### [address] Basophils/100 WBC (Bld) 0.4 % Normal . [facility] Comment on above: Performed By: #### P P #### [address] Eosinophils (Bld) [#/Vol] 0.3 10*3/uL Normal 0.0-0.45 [facility] Comment on above: Performed By: #### P P #### [address] Eosinophils/100 WBC (Bld) 1.6 % Normal . [facility] Comment on above: Performed By: #### P P #### [address] Erythrocyte distribution width (RBC) [Ratio] 17.8 % High 12.0-14.8 [facility] Comment on above: Performed By: #### P P #### [address] Hematocrit (Bld) [Volume fraction] 31.5 % Low 38.8-50.0 [facility] Comment on above: Performed By: #### P P #### [address] Hemoglobin (Bld) [Mass/Vol] 10.3 g/dL Low 13.0-17.0 [facility] Comment on above: Performed By: #### P P #### [address] Lymphocytes (Bld) [#/Vol] 1.3 10*3/uL Normal 1.00-4.8 [facility] Comment on above: Performed By: #### P P #### [address] Lymphocytes/100 WBC (Bld) 6.5 % Normal . [facility] Comment on above: Performed By: #### P P #### [address] MCH (RBC) [Entitic mass] 26.3 pg Low 27.5-35.2 [facility] Comment on above: Performed By: #### P P #### [address] MCV (RBC) [Entitic vol] 80.4 fL Low 83.5-101 [facility] Comment on above: Performed By: #### P P #### [address] Mean Corpuscular HGB Conc 32.8 g/dL Normal 32.5-35.6 [facility] Comment on above: Performed By: #### P P #### [address] Monocytes (Bld) [#/Vol] 0.7 10*3/uL Normal 0.0-0.8 [facility] Comment on above: Performed By: #### P P #### [address] Monocytes/100 WBC (Bld) 3.5 % Normal . [facility] Comment on above: Performed By: #### P P #### [address] Neutrophils (Bld) [#/Vol] 18.1 10*3/uL High 1.8-7.7 [facility] Comment on above: Performed By: #### P P #### [address] Neutrophils/100 WBC (Bld) 88.0 % Normal . [facility] Comment on above: Performed By: #### P P #### [address] NRBC% 0.1 /100{WBC} Normal 0-0.5 [facility] Comment on above: Performed By: #### P P #### [address] Platelet mean volume (Bld) [Entitic vol] 7.9 fL Normal 6.6-10.1 [facility] Comment on above: Performed By: #### P P #### [address] Platelets (Bld) [#/Vol] 337 10*3/uL Normal 150-450 [facility] Comment on above: Performed By: #### P P #### [address] RBC (Bld) [#/Vol] 3.92 10*6/uL Normal 3.90-5.60 [facility] Comment on above: Performed By: #### P P #### [address] WBC (Bld) [#/Vol] 20.6 10*3/uL High 4.1-10.5 [facility] Comment on above: Performed By: #### P P #### [address] Comprehensive Metabolic Pane bola 01-28-2024 Albumin [Mass/Vol] 2.6 g/dL Low 3.5-5.7 [facility] Comment on above: Performed By: #### G LULS #### Point of Care testing , Albumin/Globulin [Mass ratio] 0.5 {ratio} Normal [facility] Comment on above: Performed By: #### G LULS #### Point of Care testing , ALP [Catalytic activity/Vol] 183 U/L High 34-104 [facility] Comment on above: Performed By: #### G ALVARADO #### Point of Care testing , ALT [Catalytic activity/Vol] 32 U/L Normal 7-52 [facility] Comment on above: Performed By: #### G EANLS #### Point of Care testing , Anion gap [Moles/Vol] 18.2 mmol/L High 6.0-15.0 [facility] Comment on above: Performed By: #### G EANLS #### Point of Care testing , AST [Catalytic activity/Vol] 26 U/L Normal 13-39 [facility] Comment on above: Performed By: #### G ALVARADO #### Point of Care testing , Bilirubin [Mass/Vol] 0.4 mg/dL Normal 0.3-1.0 [facility] Comment on above: Performed By: #### Georgette CHILDERS #### Point of Care testing , Calcium [Mass/Vol] 7.3 mg/dL Low 8.6-10.3 [facility] Comment on above: Performed By: #### Georgette CHILDERS #### Point of Care testing , Chloride [Moles/Vol] 94 mmol/L Low 98-107 [facility] Comment on above: Performed By: #### Georgette CHILDERS #### Point of Care testing , CO2 [Moles/Vol] 17.6 mmol/L Low 21.0-31.0 [facility] Comment on above: Performed By: #### Georgette CHILDERS #### Point of Care testing , Creatinine [Mass/Vol] 5.14 mg/dL High 0.70-1.30 [facility] Comment on above: Performed By: #### G ALVARADO #### Point of Care testing , Creatinine Clr Calc Pharmacy 15.56 [facility] Comment on above: Performed By: #### G EANLS #### Point of Care testing , GFR/1.73 sq M.predicted MDRD (S/P/Bld) [Vol rate/Area] 11.425 mL/min/{1.73_m2} [facility] Comment on above: Performed By: #### G ALVARADO #### Point of Care testing , Globulin (S) [Mass/Vol] 4.8 g/dL Normal [facility] Comment on above: Performed By: #### G LULS #### Point of Care testing , Glucose [Mass/Vol] 196 mg/dL High 70-100 [facility] Comment on above: Result Comment: [place] Glucose Reference Range is dependent on time and content of last meal. Glucose of more than 200 mg/dL in a nonstressed, ambulatory subject supports the diagnosis of Diabetes Mellitus. ADA recommended reference range Performed By: #### G LULS #### Point of Care testing , Potassium [Moles/Vol] 5.8 mmol/L High 3.5-5.1 [facility] Comment on above: Performed By: #### G EANLS #### Point of Care testing , Protein [Mass/Vol] 7.4 g/dL Normal 6.4-8.9 [facility] Comment on above: Performed By: #### G LULS #### Point of Care testing , Sodium [Moles/Vol] 124 mmol/L Off scale low 136-145 [facility] Comment on above: Result Comment: Crit ical Result Called to and read back by: JORJE SALINAS at: 01/28/2024 22:55:22 by:DEE Performed By: #### G LULS #### Point of Care testing , Urea nitrogen [Mass/Vol] 93 mg/dL High 7-25 [facility] Comment on above: Performed By: #### G LULS #### Point of Care testing , Glucose Poct Glucometerson 0 01-28-2024 Glucose [Mass/Vol] 232 mg/dL Normal [facility] Comment on above: Result Comment: [place] om Glucose Reference Range is dependent on time and content of last meal. Glucose of more than 200 mg/dL in a nonstressed, ambulatory subject supports the diagnosis of Diabetes Mellitus. PERFORMED BY: [facility] [address] [place] [address] PATHOLOGIST WINDOW DECORATOR RAFA BYRNE M.D. Performed By: #### G LULS #### Point of Care testing , Magnesiumon 01-28-2024 Magnesium [Mass/Vol] 2.2 mg/dL Normal 1.9-2.7 [facility] Comment on above: Result Comment: PERF ORMED BY: [facility] [address] [place] [address] PATHOLOGIST WINDOW DECORATOR RAFA BYRNE M.D. Performed By: #### G LULS #### Point of Care testing , Magnesium [Mass/volume] in S mary or PlasmaOrdered By: Farhan Hudson on 01-28-2024 Magnesium [Mass/Vol] 2.2 mg/dL 1.9-2.7 [facility] Natriuretic peptide B [Mass/ Vol]Ordered By: Farhan Hudson on 01-28-2024 Natriuretic peptide B (Bld) [Mass/Vol] 1652.0 pg/mL 5-100 [facility] Partial Thromboplastin Timeo n 01-28-2024 aPTT Coag (Bld) [Time] 47.6 s High 25.1-36.5 [facility] Comment on above: Result Comment: A he matocrit value greater than 55% may lead to inaccurate results in coagulation testing. Patients having hematocrit values >55% require a special collection tube for coagulation studies. Please contact the laboratory at [phone] for redraw instructions. PERFORMED BY: [facility] [address] [place] [address] PATHOLOGIST WINDOW DECORATOR RAFA BYRNE M.D. Performed By: #### G LULS #### Point of Care testing , Prothrombin Time INRon 01-27 INR Coag (PPP) [Relative time] 2.5 {INR} Normal [facility] Comment on above: Result Comment: INR [...] Coag (PPP) [Time] 28.3 s High 9.0-12.9 [facility] Comment on above: Result Comment: A he matocrit value greater than 55% may lead to inaccurate results in coagulation testing. Patients having hematocrit values >55% require a special collection tube for coagulation studies. Please contact the laboratory at [phone] for redraw instructions. Performed By: #### G LULS #### Point of Care testing , Office Visiton 01-25-2024 Follow-up visit [id number] Adwoa Porter 1955 M Date Provider Department Center 01/25/2024 BRYCE TRAORE Family History Problem Relation Age of Onset Diabetes Mother Hypertension Mother Coronary artery disease Mother Family Status - Relation Status Age at Mother Level of Service:13802 [place] OFFICE/OUTPATIENT ESTABLISHED MOD MDM 30 MIN Normal [facility] Bola 01-17-2024 L Specimen: [id number] Received: 01/18/24 Status: ALEJA Vences Num: [id number] Spec Type: Surgical Subm Dr: Jorge Arroyo DPM, MS Tissues: A Debridement-Skin/Other Than Skin (LT FOOT ULCER) B DIGIT AMPUTATION (LT 5TH METATARSAL) Procedures: HE/3, Gross/Micro L4, Gross/Micro L3, Decalcification Age/ Patient Sex Location Account Attending Physician Adwoa Porter 68/M LABELL [id number] Jorge Arroyo DPM, MS SPEC NUM: [id number] RECD: 01/18/24 STATUS: ALEJA VENCES NUM: [id number] DAV: 01/17/[address]: Jorge Arroyo DPM, MS ENTERED: 01/18/24 [facility] DR: Nadeen,Lab SPEC TYPE: Surgical DEPT: AMARIS [...] with a rodriguez, trabecular cut surf lupis. General Road Supervisor are submitted following decalcification in one cassette labeled B1. Specimen: [id number] Received: 01/18/24 Status: ALEJA Veradeb Num: [id number] Spec Type: Surgical Subm Dr: Jorge Arroyo,NELLY, MS Tissues: A Debridement-Skin/Other Than Skin (LT FOOT ULCER) B DIGIT AMPUTATION (LT 5TH METATARSAL) Procedures: LORELEI/Judy, Gross/Micro L4, Gross/Micro L3, Decalcification Patient: Adwoa Porter [id number] (Continued) Specimen: [id number] Received: 01/18/24 (Continued) Signed (signature on file) Joy Navarro MD 01/22/24 1743 Specimen: [id number] Received: 01/18/24 Status: ALEJA Veradeb Num: [id number] Spec Type: Surgical Subm Dr: Jorge Arroyo,NELLY, MS Tissues: A Debridement-Skin/Other Than Skin (LT FOOT ULCER) B DIGIT AMPUTATION (LT 5TH METATARSAL) Procedures: HE/3, Gross/Micro L4, Gross/Micro L3, Decalcification Patient: Adwoa Porter [id number] (Continued) Specimen: [id number] Received: 01/18/24 (Continued) CPT Codes 14856i7, 90821 Specimen: [id number] Received: 01/18/249456 Status: ALEJA Vences Num: [id number] Spec Type: Surgical Subm Dr: Jorge Arroyo,NELLY, MS Tissues: A Debridement-Skin/Other Than Skin (LT FOOT ULCER) B DIGIT AMPUTATION (LT 5TH METATARSAL) Procedures: HE/3, Gross/Micro L4, Gross/Micro L3, Decalcification Patient: Adwoa Porter [id number] (Continued) Signed (signature on file) Joy Navarro MD 01/22/24 1743 [facility] URINALYSISon 12-18-2023 Bilirubin Ql (U) Negative Normal NEG [facility] Comment on above: Performed By: #### U A #### [facility] ([id number]) [address] [place] [address] [place] [address] BLOOD/HGB Negative Normal NEG [facility] Comment on above: Performed By: #### U A #### [facility] ([id number]) [address] [place] [address], [place] [address] Color (U) YELLOW Normal YELLOW [facility] Comment on above: Performed By: #### U A #### [facility] ([id number]) [address] [place] [address] [place] [address] Glucose Ql (U) >1000 Abnormal NEG [facility] Comment on above: Performed By: #### U A #### [facility] ([id number]) [address] [place] [address] [place] [address] Ketones Ql (U) Negative Normal NEG [facility] Comment on above: Performed By: #### U A #### [facility] ([id number]) [address] [place] [address] [place] [address] Leukocyte esterase Test strip Ql (U) Negative Normal NEG [facility] Comment on above: Result Comment: HIGH CONCENTRATIONS OF GLUCOSE MAY DECREASE THE REACTIVITY OF THE DIPSTICK LEUKOCYTE TEST PAD. Performed By: #### U A #### [facility] ([id number]) [address] [place] [address], [place] [address] Nitrite Ql (U) Negative Normal NEG [facility] Comment on above: Performed By: #### U A #### [facility] ([id number]) [address] [place] [address] [place] [address] pH (U) 7.0 [pH] Normal 5.0-8.5 [facility] Comment on above: Performed By: #### U A #### [facility] ([id number]) [address] [place] [address] Protein Ql (U) Negative Normal NEG [facility] Comment on above: Performed By: #### U A #### [facility] ([id number]) [address] [place] [address] Specific gravity (U) [Rel density] 1.010 Normal 1.003-1.03 5 [facility] Comment on above: Performed By: #### U A #### [facility] ([id number]) [address] [place] [address] TURBIDITY CLEAR Normal CLEAR [facility] Comment on above: Performed By: #### U A #### [facility] ([id number]) [address] [place] [address] Urinalysis dipstick W Reflex Microscopic panel (U) URINE RECEIVED WITHOUT PRESERVATIVE-DELAYS IN TRANSPORT MAY AFFECT RESULTS.INTERPRET WITH CAUTION AND CLINICAL CORRELATION IS RECOMMENDED. Normal [facility] Comment on above: Performed By: #### U A #### [facility] ([id number]) [address] [place] [address] Urobilinogen Qn (U) 0.2 {Ashley'U}/dL Normal <1.1 [facility] Comment on above: Performed By: #### U A #### [facility] ([id number]) [address] [place] [address] URINE CULTUREon 12-18-2023 Bacteria identified Cx Nom (U) CULTURE RESULTS NO GROWTH AT <1000 CFU/mL Normal [facility] Comment on above: Performed By: #### 6 30-4 #### [facility] ([id number]) [address] [place] [address], [address] [place] [address] Office Visiton 11-26-2023 Follow-up visit [id number] Adwoa Porter 1955 M [facility] Provider Department Center 11/26/2023 [facility] TRAORE [facility] Family History Problem Relation Age of Onset Diabetes Mother Hypertension Mother Coronary artery disease Mother Family Status - Relation Status Age at Mother Level of Service:36707 [place] OFFICE/OUTPATIENT ESTABLISHED MOD MDM 30 MIN [facility] Glucose - FINGER STICKon Glucose [Mass/Vol] 529 mg/dL [facility] Other Office Visiton 09-21-2023 Follow-up visit [id number] Adwoa Porter 1955 [facility] Provider Department Center 09/21/2023 [facility]USHIL CAO [facility] Family History Problem Relation Age of Onset Diabetes Mother Hypertension Mother Coronary artery disease Mother Family Status - Relation Status Age at Mother Level of Service:54806 [place] OFFICE/OUTPATIENT ESTABLISHED MOD MDM 30-39 MIN Reason for Visit and Comments: Follow-up [741468] Congestive Heart Failure [127] Normal [facility] Glucose - FINGER STICKon Glucose [Mass/Vol] 91 mg/dL [facility] Other Office Visiton 08-23-2023 Follow-up visit [id number] Adwoa Porter 1955 [facility] Provider Department Center 08/23/2023 MASSIMO DYE Hos Family History Problem Relation Age of Onset Diabetes Mother Hypertension Mother Coronary artery disease Mother Family Status - Relation Status Age at Mother Level of Service:97875 [place] OFFICE/OUTPATIENT ESTABLISHED HIGH MDM 40-54 MIN Reason for Visit and Comments: Wheezing [662283] Hospital Follow-up [832] Normal [facility] Office Visiton 08-15-2023 Follow-up visit [id number] Cm 1955 [facility] Provider Department Center 08/15/2023 BRYCE TRAORE [facility] Family History Problem Relation Age of Onset Diabetes Mother Hypertension Mother Coronary artery disease Mother Family Status - Relation Status Age at Mother Level of Service:87161 [place] OFFICE/OUTPATIENT ESTABLISHED MOD MDM 30-39 MIN [facility] 36on 08-13-2023 36 Pt informed [facility] A1C HEMOGLOBINon 06-29-2023 HbA1c (Bld) [Mass fraction] 7.9 % [place] [facility] [employer] Other Glucose - FINGER STICKon Glucose [Mass/Vol] 382 mg/dL [facility] [employer] Other HbA1c (Bld) [Mass fraction]o n 06-29-2023 A1C HEMOGLOBIN [facility] [employer] [place] Other 36on 06-20-2023 36 His potassium on 05/21 was 2.7. He needs to come to the hospital to receive IV potassium and further treatment as needed [facility] Telephoneon 06-20-2023 Telephone [id number] Adwoa Proter 1955 M Date Provider Department Center 06/20/2023 SUSHIL CAO Family History Problem Relation Age of Onset Diabetes Mother Hypertension Mother Coronary artery disease Mother Family Status - Relation Status Age at Mother [facility] 36on 06-19-2023 36 [facility] lab called to re port a potassium level of 2.7 today. Melissa tried to call patient to remind him of his apt tomorrow but he did not answer and had no voicemail. [facility] 36on 06-18-2023 36 [facility] lab called to re port a critical BNP of 13,277. FYI. [facility] Telephoneon 06-18-2023 Telephone [id number] Adwoa Porter 1955 M Date Provider Department Center 06/18/2023 SUSHIL CAO Family History Problem Relation Age of Onset Diabetes Mother Hypertension Mother Coronary artery disease Mother Family Status - Relation Status Age at Mother [facility] Office Visiton 06-05-2023 Follow-up visit [id number] Adwoa Porter 1955 M Date Provider Department Center 06/05/2023 SUSHIL CAO Family History Problem Relation Age of Onset Diabetes Mother Hypertension Mother Coronary artery disease Mother Family Status - Relation Status Age at Mother Level of Service:91833 [place] OFFICE/OUTPATIENT ESTABLISHED MOD MDM 30-39 MIN Reason for Visit and Comments: Follow-up [402261] Normal [facility] PTH INTACTon 04-12-2023 PTH, Intact 50 pg/mL Normal 15-65 [facility] Comment on above: Performed By: #### P THINT ####[facility] [address] [place] [address]Dr. Emelina Navarro HEMOGRAM AND PLATELon 2022 Hematocrit (Bld) [Volume fraction] 42.7 % Normal 42.0-54.0 [facility] Comment on above: Performed By: #### H H ####[facility] [address] [place] [address]Dr. Emelina Navarro Hemoglobin (Bld) [Mass/Vol] 14.3 g/dL Normal 14.0-18.0 [facility] Comment on above: Performed By: #### H H ####[facility] [address] [place], [place] [address]Dr. Emelina Navarro MCH (RBC) [Entitic mass] 29.5 pg Normal 25.9-34.0 [facility] Comment on above: Performed By: #### H H ####[facility] [address] [place] [address]Dr. Emelina Navarro MCHC (RBC) [Mass/Vol] 33.5 g/dL Normal 29.9-35.2 [facility] Comment on above: Performed By: #### H H ####[facility] [address] [place] [address]Dr. Emelina Navarro MCV (RBC) [Entitic vol] 88.2 fL Normal 80.0-94.0 [facility] Comment on above: Performed By: #### H H ####[facility] [address] [place] [address]Dr. Emelina Navarro PLT 278 103/ul Normal 150-450 [facility] Comment on above: Performed By: #### H H ####[facility] [address] [place] [id number]. Emelina Navarro RBC 4.84 106/ul Normal 4.70-6.10 [facility] Comment on above: Performed By: #### H H ####[facility] [address] [place] [id number]. Emelina Navarro WBC 12.9 103/ul Critically high 4.0-11.0 [facility] Comment on above: Performed By: #### H H ####[facility] [address] [place] [id number]. Emelina Navarro MAGNESIUMon 04-11-2023 Magnesium [Mass/Vol] 2.2 mg/dL Normal 1.8-2.4 [facility] Comment on above: Performed By: #### U JOLIE, RENAL, MG ####[facility] [address] [place] [address]Dr. Awildanitza Ramon RENAL FUNCTION PANELon 04-11 Albumin [Mass/Vol] 3.6 g/dL Normal 3.4-5.0 [facility] Comment on above: Performed By: #### U JOLIE, RENAL, MG ####[facility] [address] [place], [place] [address]Dr. Awildanitza Ramon Calcium [Mass/Vol] 9.5 mg/dL Normal 8.5-10.1 [facility] Comment on above: Performed By: #### U JOLIE, RENAL, MG ####[facility] [address] [place] [address]Dr. Awildanitza Navarro Chloride [Moles/Vol] 95 mmol/L Critically low 98-107 [facility] Comment on above: Performed By: #### U JOLIE, RENAL, MG ####[facility] [address] [place] [address]Dr. Emelina Navarro CO2 [Moles/Vol] 36.4 mmol/L Critically high 21.0-32.0 [facility] Comment on above: Performed By: #### U JOLIE, RENAL, MG ####[facility] [address] [place], [place] [address]Dr. Emelina Navarro Creatinine [Mass/Vol] 1.92 mg/dL Critically high 0.70-1.30 [facility] Comment on above: Performed By: #### U JOLIE, RENAL, MG ####[facility] [address] [place] [id number]. Emelina Navarro EGFR-AF [place] 42 mL/min/1.73m2 Critically low >=60 [facility] Comment on above: Performed By: #### U JOLIE, RENAL, MG ####[facility] [address] [place] [phone]. Emelina Navarro EGFR-NON AF [place] 35 mL/min/1.73m2 Critically low >=60 [facility] Comment on above: Performed By: #### U JOLIE, RENAL, MG ####[facility] Ifgernfzgs[address] [place] [address]Dr. Emelina Navarro Glucose [Mass/Vol] 96 mg/dL Normal 74-106 [facility] Comment on above: Performed By: #### U JOLIE, RENAL, MG ####[facility] T[address]ufj[address] [place] [address]Dr. Emelina Navarro Phosphate [Mass/Vol] 4.0 mg/dL Normal 2.6-4.7 [facility] Comment on above: Performed By: #### U JOLIE, RENAL, MG ####[facility] [address]lfsoxb[address] [place] [id number]. Emelina Navarro Potassium [Moles/Vol] 3.1 mmol/L Critically low 3.5-5.1 [facility] Comment on above: Performed By: #### U JOLIE, RENAL, MG ####[facility] [address] [place] [address]Dr. Emelina Navarro Sodium [Moles/Vol] 137 mmol/L Normal 136-145 [facility] Comment on above: Performed By: #### U JOLIE, RENAL, MG ####[facility] [address]xfl[address] [place] [address]Dr. Emelina Navarro Urea nitrogen [Mass/Vol] 31.0 mg/dL Critically high 7.0-18.0 [facility] Comment on above: Performed By: #### U JOLIE, RENAL, MG ####[facility] [address] [place] [address]Dr. Emelina Navarro UA RANDOM W/MICROSCOPICon BACTERIA NONE SEEN Normal NONE SEEN [facility] Comment on above: Performed By: #### U AMIC ####[facility] [address] [place] [address]Dr. Emelina Navarro Bilirubin Ql (U) Negative Normal NEGATIVE [facility] Comment on above: Performed By: #### U AMIC ####[facility] [address] [place], [place] [address]Dr. Emelnia Navarro CAST NONE SEEN Normal NONE SEEN [facility] Comment on above: Performed By: #### U AMIC ####[facility] [address] [place], [place] [address]Dr. Emelina Navarro Clarity (U) CLEAR Normal CLEAR [facility] Comment on above: Performed By: #### U AMIC ####[facility] [address] [place], [place] [address]Dr. Emelina Navarro Color (U) LT. YELLOW Normal YELLOW [facility] Comment on above: Performed By: #### U AMIC ####[facility] [address] [place], [place] [address]Dr. Emelina Navarro Crystals LM Nom (Urine sed) NONE SEEN Normal NONE SEEN [facility] Comment on above: Performed By: #### U AMIC ####[facility] [address] [place], [place] [address]Dr. Emelina Navarro Epithelial cells LM Ql (Urine sed) FEW Abnormal NONE SEEN /RARE [facility] Comment on above: Performed By: #### U AMIC ####[facility] [address]arsz[address] [place], [place] [address]Dr. Emelina Navarro Glucose Ql (U) 500 mg/dl Abnormal NEGATIVE [facility] Comment on above: Performed By: #### U AMIC ####[facility] Tpcvd[address]vi[address] [place], [place] [address]Dr. Emelina Navarro Hemoglobin Ql (U) Negative Normal NEGATIVE [facility] Comment on above: Performed By: #### U AMIC ####[facility] [address]fyj[address] [place] [address]Dr. Emelina Navarro Ketones Ql (U) Negative Normal NEGATIVE [facility] Comment on above: Performed By: #### U AMIC ####[facility] [address]aze[address] [place] [address]Dr. Emelina Navarro LEUKOCYTES Negative Normal NEGATIVE [facility] Comment on above: Performed By: #### U AMIC ####[facility] [address]mgmcf[address] [place] [address]Dr. Emelina Navarro MUCOUS NONE SEEN Normal NONE SEEN [facility] Comment on above: Performed By: #### U AMIC ####[facility] Exlf[address] [place], [place] [address]Dr. Emelina Navarro Nitrite Ql (U) Negative Normal NEGATIVE [facility] Comment on above: Performed By: #### U AMIC ####[facility] [address] [place], [place] [address]Dr. Emelina Navarro pH (U) 6.5 [pH] Normal 5-9 [facility] Comment on above: Performed By: #### U AMIC ####[facility] [address] [place], [place] [address]Dr. Emelina Navarro RBC NONE SEEN Abnormal 0-2 [facility] Comment on above: Performed By: #### U AMIC ####[facility] [address] [place], [place] [address]Dr. Emelina Navarro SPEC GRAVITY 1.005 Normal 1.005-<=1. 025 [facility] Comment on above: Performed By: #### U AMIC ####[facility] [address]qc[address] [place] [address]Dr. Emelina Navarro UA PROTEIN Negative Normal NEGATIVE/ TRACE [facility] Comment on above: Performed By: #### U AMIC ####[facility] [address]ixseq[address] [place] [address]Dr. Emelina Navarro Urobilinogen Qn (U) 0.2 {Ashley'U}/dL Normal 0.2 - 1. 0 [facility] Comment on above: Performed By: #### U AMIC ####[facility] [address]ws[address] [place] [address]Dr. Emelina Navarro WBC NONE SEEN Normal NONE SEEN [facility] Comment on above: Performed By: #### U AMIC ####[facility] [address] [place] [address]Dr. Emelina Navarro URIC ACID SERUMon 04-11-2023 Urate [Mass/Vol] 12.2 mg/dL Critically high 3.5-7.2 [facility] Comment on above: Performed By: #### U JOLIE, RENAL, MG ####[facility] [address] [place], [place] [address]Dr. Emelina Navarro URINE T PROTEIN CREAT RATIOo n 04-11-2023 Protein (U) [Mass/Vol] 9.3 mg/dL Normal <=12.0 [facility] Comment on above: Performed By: #### U RTPCR ####[facility] [address] [place], [place] [address]Dr. Emelina Navarro UR PROT CREAT RAT 0.37 Normal [facility] Comment on above: Performed By: #### U RTPCR ####[facility] [address] [place], [place] [address]Dr. Emelina Navarro URINE CREAT 25.00 mg/dL Normal 20.00-300. 00 [facility] Comment on above: Performed By: #### U RTPCR ####[facility] [address] [place], [place] [address]Dr. Emelina Navarro VITAMIN D 25 OHon 04-11-2023 VIT D 25-OH 51.8 ng/mL Normal [facility] Comment on above: Performed By: #### V ITAD ####[facility] [address] [place], [place] [address]Dr. Emelina Navarro VIT D RANGES SEE BELOW Normal [facility] Comment on above: Result Comment: <20 ng/mL Vit D deficient 20 - <30 ng/mL Vit D insufficient 30 - 100 ng/mL Vit D sufficient >100 ng/mL Potential Toxicity Performed By: #### V ITAD ####[facility] [address] [place] [address]Dr. Emelina Navarro BNPon 03-28-2023 Natriuretic peptide B (Bld) [Mass/Vol] 7479.0 pg/mL Critically high <=900.0 [facility] Comment on above: Performed By: #### B CONSTRUCTION DIRECTOR, CMP ####[facility] [address]we[address] [place], [place] [address]Dr. Emelina Navarro CBC AUTO DIFFon 03-28-2023 BASO # 0.1 103/ul Normal 0.0-0.1 [facility] Comment on above: Performed By: #### C BC ####[facility] [address]lvex[address] [place], [place] [address]Dr. Emelina Navarro Basophils/100 WBC (Bld) 0.5 % Normal 0.2-2.0 [facility] Comment on above: Performed By: #### C BC ####[facility] Lxuynotyti970430 [address] [place], [place] [address]Dr. Emelina Navarro EO # 0.4 103/ul Normal 0.0-0.7 [facility] Comment on above: Performed By: #### C BC ####[facility] Mfozrjwptp[address] [place], [place] [address]Dr. Emelina Navarro Eosinophils/100 WBC (Bld) 3.7 % Normal 0.9-7.0 [facility] Comment on above: Performed By: #### C BC ####[facility] Fnxfkeyvxo11[address] [place], [place] [address]Dr. Emelina Navarro Erythrocyte distribution width (RBC) [Ratio] 18.2 % Critically high 11.0-15.0 [facility] Comment on above: Performed By: #### C BC ####[facility] Fnxbfhvwyd59[address] [place], [place] [address]Dr. Emelina Navarro Hematocrit (Bld) [Volume fraction] 39.0 % Critically low 42.0-54.0 [facility] Comment on above: Performed By: #### C BC ####[facility] Pefafhmmye10[address] [place], [place] [address]Dr. Emelina Navarro Hemoglobin (Bld) [Mass/Vol] 12.8 g/dL Critically low 14.0-18.0 [facility] Comment on above: Performed By: #### C BC ####[facility] Oslgobkesf[address] [place] [address]DrWesley Navarro IG # 0.05 10e3/ul Critically high 0.00-0.03 [facility] Comment on above: Performed By: #### C BC ####[facility] Rslikbtymb4751 [place] [address]DrWesley Navarro IG % 0.5 % Normal 0.0-0.5 [facility] Comment on above: Performed By: #### C BC ####[facility] Actuvhlzbv3864[address] [place], [place] [address]DrWesley Navarro LYMPH # 1.4 103/ul Normal 1.2-3.8 [facility] Comment on above: Performed By: #### C BC ####[facility] Achymdyjbi4057[address] [place], [place] [address]DrWesley Navarro Lymphocytes/100 WBC (Bld) 13.1 % Critically low 20.5-60.0 [facility] Comment on above: Performed By: #### C BC ####[facility] Ibclcbgmro5[address] [place], [place] [address]DrWesley Naavrro MANUAL DIFF REQ NO Normal [facility] Comment on above: Performed By: #### C BC ####[facility] Izdaommpyb2596 [place] [address]DrWesley Navarro MCH (RBC) [Entitic mass] 29.8 pg Normal 25.9-34.0 [facility] Comment on above: Performed By: #### C BC ####[facility] Umwoboaboc4[address] [place], [place] [address]DrWesley Navarro MCHC (RBC) [Mass/Vol] 32.8 g/dL Normal 29.9-35.2 [facility] Comment on above: Performed By: #### C BC ####[facility] Pnhpalnwba[address] [place], [place] [address]DrWesley Navarro MCV (RBC) [Entitic vol] 90.9 fL Normal 80.0-94.0 [facility] Comment on above: Performed By: #### C BC ####[facility] Owcpkvdsgo6287 [place] [address]DrWesley Kaisernitza Ramon MONO # 0.8 103/ul Normal 0.3-0.8 [facility] Comment on above: Performed By: #### C BC ####[facility] Bztsssiimy4380 [place] [address]DrWesley Navarro Monocytes/100 WBC (Bld) 7.5 % Normal 1.7-12.0 [facility] Comment on above: Performed By: #### C BC ####[facility] Zzdxtbnmrs28[address] [place], [place] [address]DrWesley Kaisernitza Ramon NEUT # 8.1 103/ul Critically high 1.4-6.5 [facility] Comment on above: Performed By: #### C BC ####[facility] Uthlsodgvh0135[address] [place], [place] [address]DrWesley Navarro Neutrophils/100 WBC (Bld) 74.7 % Normal 43.0-75.0 [facility] Comment on above: Performed By: #### C BC ####[facility] Stnniijglq6349[address] [place], [place] [address]DrWesley Awildanitza Navarro Platelet mean volume (Bld) [Entitic vol] 10.0 fL Normal 9.5-13.5 [facility] Comment on above: Performed By: #### C BC ####[facility] Killsfkbdu[address] [place], [place] [address]Dr. Emelina Navarro PLT 242 103/ul Normal 150-450 [facility] Comment on above: Performed By: #### C BC ####[facility] Ithjumnqfh267[address] [place], [place] [address]DrWesley Navarro RBC 4.29 106/ul Critically low 4.70-6.10 [facility] Comment on above: Performed By: #### C BC ####[facility] Scmbenldyn4785[address] [place], [place] [address]DrWesley Navarro WBC 10.8 103/ul Normal 4.0-11.0 [facility] Comment on above: Performed By: #### C BC ####[facility] Oqoxhiqbdg3328 [place] [address]Dr. Emelina Navarro PROF 14(COMP METB)on 023 Albumin [Mass/Vol] 2.7 g/dL Critically low 3.4-5.0 [facility] Comment on above: Performed By: #### B CONSTRUCTION DIRECTOR, CMP ####[facility] Mfpzefdpwt8235[address] [place], [place] [address]Dr. Emelina Navarro Albumin/Globulin [Mass ratio] 0.6 {ratio} Normal [facility] Comment on above: Performed By: #### B CONSTRUCTION DIRECTOR, CMP ####[facility] Vclewjyfem4798[address] [place], [place] [address]Dr. Emelina Navarro ALP [Catalytic activity/Vol] 105 U/L Normal 46-116 [facility] Comment on above: Performed By: #### B CONSTRUCTION DIRECTOR, CMP ####[facility] Sopgdybwiw2570[address] [place], [place] [address]Dr. Emelina Navarro ALT [Catalytic activity/Vol] 21 U/L Normal 16-63 [facility] Comment on above: Performed By: #### B CONSTRUCTION DIRECTOR, CMP ####[facility] Ehaiingwpv518[address] [place], [place] [address]Dr. Emelina Navarro Anion gap [Moles/Vol] 11.6 mmol/L Normal [facility] Comment on above: Performed By: #### B CONSTRUCTION DIRECTOR, CMP ####[facility] Nyeymwqzwp8946[address] [place], [place] [address]Dr. Emelina Navarro AST [Catalytic activity/Vol] 25 U/L Normal 15-37 [facility] Comment on above: Performed By: #### B CONSTRUCTION DIRECTOR, CMP ####[facility] Gbndnhdegn698[address] [place], [place] [address]Dr. Emelina Navarro Bilirubin [Mass/Vol] 0.8 mg/dL Normal 0.2-1.0 [facility] Comment on above: Performed By: #### B CONSTRUCTION DIRECTOR, CMP ####[facility] Visdzhsltn7157[address] [place], [place] [address]Dr. Emelina Navarro Calcium [Mass/Vol] 8.1 mg/dL Critically low 8.5-10.1 [facility] Comment on above: Performed By: #### B CONSTRUCTION DIRECTOR, CMP ####[facility] Uwzlcegiej[address] [place], [place] [address]Dr. Emelina Navarro Chloride [Moles/Vol] 100 mmol/L Normal 98-107 [facility] Comment on above: Performed By: #### B CONSTRUCTION DIRECTOR, CMP ####[facility] Dkvrnehwfm8777[address] [place], [place] [address]Dr. Emelina Navarro CO2 [Moles/Vol] 29.2 mmol/L Normal 21.0-32.0 [facility] Comment on above: Performed By: #### B CONSTRUCTION DIRECTOR, CMP ####[facility] Ahkxgrpejt3822[address] [place], [place] [address]Dr. Emelina Navarro Creatinine [Mass/Vol] 1.66 mg/dL Critically high 0.70-1.30 [facility] Comment on above: Performed By: #### B CONSTRUCTION DIRECTOR, CMP ####[facility] Fygmxcewee6557[address] [place], [place] [address]Dr. Emelina Navarro EGFR-AF EAST [place] 50 mL/min/1.73m2 Critically low >=60 [facility] Comment on above: Performed By: #### B CONSTRUCTION DIRECTOR, CMP ####[facility] Qzxnncoabj5026[address] [place], [place] [address]Dr. Emelina Navarro EGFR-NON AF [place] 41 mL/min/1.73m2 Critically low >=60 [facility] Comment on above: Performed By: #### B CONSTRUCTION DIRECTOR, CMP ####[facility] Klotvvhjhz[address] [place], [place] [address]Dr. Emelina Navarro Globulin (S) [Mass/Vol] 4.2 g/dL Normal [facility] Comment on above: Performed By: #### B CONSTRUCTION DIRECTOR, CMP ####[facility] Cekmdcadyb4147[address] [place], [place] [address]Dr. Emelina Navarro Glucose [Mass/Vol] 126 mg/dL Critically high 74-106 [facility] Comment on above: Performed By: #### B CONSTRUCTION DIRECTOR, CMP ####[facility] Ucrawxhgjw4720 [place] [address]Dr. Emelina Navarro Potassium [Moles/Vol] 3.8 mmol/L Normal 3.5-5.1 [facility] Comment on above: Performed By: #### B CONSTRUCTION DIRECTOR, CMP ####[facility] Qokrqzewfi384[address] [place], [place] [address]Dr. Emelina Navarro Protein [Mass/Vol] 6.9 g/dL Normal 6.4-8.2 [facility] Comment on above: Performed By: #### B CONSTRUCTION DIRECTOR, CMP ####[facility] Hcrcnvwsxw9688[address] [place], [place] [address]Dr. Emelina Navarro Sodium [Moles/Vol] 137 mmol/L Normal 136-145 [facility] Comment on above: Performed By: #### B CONSTRUCTION DIRECTOR, CMP ####[facility] Rtdnccpclc[address] [place], [place] [address]Dr. Emelina Navarro Urea nitrogen [Mass/Vol] 32.0 mg/dL Critically high 7.0-18.0 [facility] Comment on above: Performed By: #### B CONSTRUCTION DIRECTOR, CMP ####[facility] Rznihlwryt2224[address] [place], [place] [address]Dr. Emelina Navarro Urea nitrogen/Creatinine [Mass ratio] 19.3 mg/mg Normal [facility] Comment on above: Performed By: #### B CONSTRUCTION DIRECTOR, CMP ####[facility] Zaophqsymp1344[address] [place], [place] [address]Dr. Emelina Navarro PROTIMEon 03-28-2023 INR Coag (PPP) [Relative time] 2.59 {INR} Normal [facility] Comment on above: Performed By: #### P T ####[facility] Bryetozplg8776[address] [place], [place] [address]Dr. Emelina Navarro INR GUIDELINES SEE BELOW Normal [facility] Comment on above: Result Comment: WENDY RED INR: 2.0 - 3.0 CONDITIONS NOT LISTED BELOW 2.5 - 3.5 FOR PROSTHETIC HEART VALVE REPLACEMENT 2.5 - 3.5 RECURRENT THROMBOSIS Performed By: #### P T ####[facility] Zlnlfkxonz7526[address] [place], [place] [address]Dr. Emelina Navarro PT Coag (PPP) [Time] 26.0 s Critically high 9.0-11.6 [facility] Comment on above: Performed By: #### P T ####[facility] Lerwwskqln4236[address] [place], [place] [address]Dr. Emelina Navarro SED RATE WESTERGRENon 2022 SED RATE 62 mm/hr Critically high <=20 [facility] Comment on above: Performed By: #### S EDR ####[facility] Egygcnaqxq7139[address] [place], [place] [address]Dr. Emelina Navarro BNPon 03-27-2023 Natriuretic peptide B (Bld) [Mass/Vol] 41793.0 pg/mL Critically high <=900.0 [facility] Comment on above: Performed By: #### B CONSTRUCTION DIRECTOR ####[facility] Kvuwqnmqaf9056[address] [place], [place] [address]Dr. Emelina Navarro CARDIAC IMTIAZ 3-6on 3 CK [Catalytic activity/Vol] 59 U/L Normal 39-308 [facility] Comment on above: Performed By: #### C MREP ####[facility] Crbqdtxcct346[address] [place], [place] [address]Dr. Emelina Navarro CK.MB [Mass/Vol] 1.98 ng/mL Normal <=3.60 [facility] Comment on above: Performed By: #### C MREP ####[facility] Vgnxtkqwzu267[address] [place], [place] [address]Dr. Emelina Navarro HSTROP 52.5 pg/mL Normal 4.0-76.1 [facility] Comment on above: Result Comment: CUT- OFF POINTS HAVE BEEN ESTABLISHED BASED ON THE FOURTH UNIVERSAL DEFINITIONS OF MYOCARDIALINFARCTION. THE UPPER REFERENCE LIMIT (URL) OF TROPONIN, DEFINED THE 99TH PERCENTILE OFcTnI DISTRIBUTION IN A REFERENCE POPULATION, HAS BEEN CONFIRMED THE DECISION THRESHOLDFOR RI DIAGNOSIS. Performed By: #### C MREP ####[facility] Fzxlsbwkrc7317[address] [place], [place] [address]Dr. Emelina Ramon CK [Catalytic activity/Vol] 41 U/L Normal 39-308 [facility] Comment on above: Performed By: #### C MREP ####[facility] Biffwzctav280[address] [place] [id number]. Emelina Navarro CK.MB [Mass/Vol] 1.26 ng/mL Normal <=3.60 [facility] Comment on above: Performed By: #### C MREP ####[facility] Rjpopmbuda6436 [place] [id number]. Emelina Navarro HSTROP 49.5 pg/mL Normal 4.0-76.1 [facility] Comment on above: Result Comment: CUT- OFF POINTS HAVE BEEN ESTABLISHED BASED ON THE FOURTH UNIVERSAL DEFINITIONS OF MYOCARDIALINFARCTION. THE UPPER REFERENCE LIMIT (URL) OF TROPONIN, DEFINED THE 99TH PERCENTILE OFcTnI DISTRIBUTION IN A REFERENCE POPULATION, HAS BEEN CONFIRMED THE DECISION THRESHOLDFOR RI DIAGNOSIS. Performed By: #### C MREP ####[facility] Kdlhttficd09[address] [place], [place] [address]Dr. Emelina Ramon CBC AUTO DIFFon 03-27-2023 BASO # 0.0 103/ul Normal 0.0-0.1 [facility] Comment on above: Performed By: #### C BC ####[facility] Erparlmjrl2950[address] [place], [place] [address]Dr. Emelina Ramon Basophils/100 WBC (Bld) 0.3 % Normal 0.2-2.0 [facility] Comment on above: Performed By: #### C BC ####[facility] Eewbomrtir5698[address] [place], [place] [address]Dr. Emelina Navarro EO # 0.4 103/ul Normal 0.0-0.7 [facility] Comment on above: Performed By: #### C BC ####[facility] Udxbvejhzh[address] [place], [place] [id number]. Emelina Ramon Eosinophils/100 WBC (Bld) 3.3 % Normal 0.9-7.0 [facility] Comment on above: Performed By: #### C BC ####[facility] Kphiblwnwc2339[address] [place], [place] [address]Dr. Awildanitza Navarro Erythrocyte distribution width (RBC) [Ratio] 17.9 % Critically high 11.0-15.0 [facility] Comment on above: Performed By: #### C BC ####[facility] Xxkqkldjww023[address] [place] [address]Dr. Emelina Navarro Hematocrit (Bld) [Volume fraction] 42.3 % Normal 42.0-54.0 [facility] Comment on above: Performed By: #### C BC ####[facility] Ezlqavrtso4353 [place] [address]Dr. Emelina Navarro Hemoglobin (Bld) [Mass/Vol] 13.8 g/dL Critically low 14.0-18.0 [facility] Comment on above: Performed By: #### C BC ####[facility] Tuhzvfqifp6555 [place] [address]Dr. Emelina Navarro IG # 0.07 10e3/ul Critically high 0.00-0.03 [facility] Comment on above: Performed By: #### C BC ####[facility] Euflvlfhgx1890 [place] [address]Dr. Emelina Navarro IG % 0.5 % Normal 0.0-0.5 [facility] Comment on above: Performed By: #### C BC ####[facility] Hdctadinyx[address] [place], [place] [address]DrWesley Navarro LYMPH # 2.3 103/ul Normal 1.2-3.8 [facility] Comment on above: Performed By: #### C BC ####[facility] Krtclivrcq8073[address] [place], [place] [address]DrWesley Navarro Lymphocytes/100 WBC (Bld) 17.5 % Critically low 20.5-60.0 [facility] Comment on above: Performed By: #### C BC ####[facility] Hkcvxonfhf2593[address] [place], [place] [address]DrWesley Navarro MANUAL DIFF REQ NO Normal [facility] Comment on above: Performed By: #### C BC ####[facility] Ybfmthathb4275 [place] [address]Dr. Emelina Navarro MCH (RBC) [Entitic mass] 29.3 pg Normal 25.9-34.0 [facility] Comment on above: Performed By: #### C BC ####[facility] Gjjhwnkbtj6745 [place] [id number]. Emelina Ramon MCHC (RBC) [Mass/Vol] 32.6 g/dL Normal 29.9-35.2 [facility] Comment on above: Performed By: #### C BC ####[facility] Sgkrvhuhql9341 [place] [phone] Navarro MCV (RBC) [Entitic vol] 89.8 fL Normal 80.0-94.0 [facility] Comment on above: Performed By: #### C BC ####[facility] Abtzfaoiyc4[address] [place], [place] [address]DrWesley Navarro MONO # 1.0 103/ul Critically high 0.3-0.8 [facility] Comment on above: Performed By: #### C BC ####[facility] Uuxbqcctsh3436[address] [place], [place] [address]Dr. Emelina Navarro Monocytes/100 WBC (Bld) 7.8 % Normal 1.7-12.0 [facility] Comment on above: Performed By: #### C BC ####[facility] Vwjlostzba50[address] [place], [place] [address]Dr. Emelina Navarro NEUT # 9.3 103/ul Critically high 1.4-6.5 [facility] Comment on above: Performed By: #### C BC ####[facility] Igvuydmqke027[address] [place], [place] [address]Dr. Emelina Navarro Neutrophils/100 WBC (Bld) 70.6 % Normal 43.0-75.0 [facility] Comment on above: Performed By: #### C BC ####[facility] Ayrdgpnbcx[address] [place], [place] [id number] Navarro Platelet mean volume (Bld) [Entitic vol] 9.6 fL Normal 9.5-13.5 [facility] Comment on above: Performed By: #### C BC ####[facility] Zcuyfxqyvp56[address] [place], [place] [address]DrWesley Navarro PLT 248 103/ul Normal 150-450 [facility] Comment on above: Performed By: #### C BC ####[facility] Sdsmuvjwlj3997 [place] [phone]. Emelina Navarro RBC 4.71 106/ul Normal 4.70-6.10 [facility] Comment on above: Performed By: #### C BC ####[facility] Xdedvlmgks0334 [place] [phone]. Emelina Navarro WBC 13.2 103/ul Critically high 4.0-11.0 [facility] Comment on above: Performed By: #### C BC ####[facility] Duygobmqsj6420 [place] [phone]. Emelina Navarro DIGOXINon 03-27-2023 DIG 1.1 ng/mL Normal 0.9-2.0 [facility] Comment on above: Performed By: #### D IG ####[facility] Fktbakzspw5907 [place] [address]Dr. Emelina Navarro LACTATE/LACTIC ACIDon 2022 Lactate [Moles/Vol] 0.8 mmol/L Normal 0.4-2.0 [facility] Comment on above: Performed By: #### L ACT ####[facility] Siwofkwkgs7723 [place] [phone]. Emelina Navarro LIPID PROFILEon 03-27-2023 CHOL-HDL RATIO NORM SEE BELOW Normal [facility] Comment on above: Result Comment: 3.3 - 4.4 LOW RISK 4.4 - 7.1 AVERAGE RISK 7.1 - 11.0 MODERATE RISK >11.0 HIGH RISK Performed By: #### L IPID, TSH ####[facility] Dqrzhbjtzn7705 [place] [phone]. Emelina Navarro Cholesterol [Mass/Vol] 86 mg/dL Normal <=200 [facility] Comment on above: Performed By: #### L IPID, TSH ####[facility] Uvgnnuqays1091 [place] [phone]. Emelina Navarro Cholesterol in HDL [Mass/Vol] 29 mg/dL Critically low 40-60 [facility] Comment on above: Performed By: #### L IPID, TSH ####[facility] Zdbikgaalu2470 [place] [phone]. Emelina Navarro Cholesterol in LDL [Mass/Vol] 37.8 mg/dL Normal [facility] Comment on above: Performed By: #### L IPID, TSH ####[facility] Wzdsuosqsv3955 [place] [phone]. Emelina Navarro Cholesterol.total/Cho lesterol in HDL [Mass ratio] 3.0 {ratio} Normal [facility] Comment on above: Performed By: #### L IPID, TSH ####[facility] Dbhwzrzxuc4729 [place] [phone]. Emelina Navarro HDL NORMAL > or = 60 mg/dl - LO W CARDIOVASCULAR RISK <40 mg/dl - HIGH CARDIOVASCULAR RISK Normal [facility] Comment on above: Performed By: #### L IPID, TSH ####[facility] Emqvfrkwyx6987 [place] [address]Dr. Emelina Navarro LDL CALC NORMAL SEE BELOW Normal [facility] Comment on above: Result Comment: <100 mg/dl OPTIMAL 100 - 129 mg/dl NEAR OR ABOVE OPTIMAL 130 - 159 mg/dl BORDERLINE HIGH 160 - 189 mg/dl HIGH >190 mg/dl VERY HIGH Performed By: #### L IPID, TSH ####[facility] Jynvehgzgb5322 [place] [address]Dr. Emelina Navarro Triglyceride [Mass/Vol] 96 mg/dL Normal <=150 [facility] Comment on above: Performed By: #### L IPID, TSH ####[facility] Pudizoltgg1622 [place] [phone]. Emelina Navarro VLDL CALC 19.2 mg/dL Normal [facility] Comment on above: Performed By: #### L IPID, TSH ####[facility] Jlhpjptuvb7241 [place] [address]Dr. Emelina Navarro POINT OF CARE GLUCOSEon 05-0 Glucose [Mass/Vol] 175 mg/dL Critically high 74-106 T [facility] Comment on above: Performed By: #### P OCGLUC ####[facility] Gbrjvczqaz3321 [place] [address]Dr. Awildanitza Ramon Glucose [Mass/Vol] 196 mg/dL Critically high 74-106 T [facility] Comment on above: Performed By: #### P OCGLUC ####[facility] Acqctyvvaw[address] [place], [place] [address]Dr. Emelina Navarro PROF 14(COMP METB)on 023 Albumin [Mass/Vol] 2.9 g/dL Critically low 3.4-5.0 [facility] Comment on above: Performed By: #### C MP ####[facility] Ispdvigwtd5528 [place] [address]Dr. Emelina Navaror Albumin/Globulin [Mass ratio] 0.6 {ratio} Normal [facility] Comment on above: Performed By: #### C MP ####[facility] Vuvnxpbyri2[address] [place], [place] [address]Dr. Emelina Navarro ALP [Catalytic activity/Vol] 112 U/L Normal 46-116 [facility] Comment on above: Performed By: #### C MP ####[facility] Dnqhnhnkow05[address] [place], [place] [address]Dr. Emelina Navarro ALT [Catalytic activity/Vol] 23 U/L Normal 16-63 [facility] Comment on above: Performed By: #### C MP ####[facility] Apnmsgyhcj8946[address] [place], [place] [address]Dr. Emelina Navarro Anion gap [Moles/Vol] 9.5 mmol/L Normal [facility] Comment on above: Performed By: #### C MP ####[facility] Gkfbmhtgzb[address] [place], [place] [address]Dr. Emelina Navarro AST [Catalytic activity/Vol] 30 U/L Normal 15-37 [facility] Comment on above: Performed By: #### C MP ####[facility] Vzxvvuudcy25[address] [place], [place] [address]Dr. Emelina Navarro Bilirubin [Mass/Vol] 0.8 mg/dL Normal 0.2-1.0 [facility] Comment on above: Performed By: #### C MP ####[facility] Jvippijjnn6780 [place] [phone]. Emelina Navarro Calcium [Mass/Vol] 8.2 mg/dL Critically low 8.5-10.1 [facility] Comment on above: Performed By: #### C MP ####[facility] Iehpbdirzf0420 [place] [phone]. Emelina Navarro Chloride [Moles/Vol] 100 mmol/L Normal 98-107 [facility] Comment on above: Performed By: #### C MP ####[facility] Ftyoffvazn5212 [place] [phone]. Emelina Navarro CO2 [Moles/Vol] 32.9 mmol/L Critically high 21.0-32.0 [facility] Comment on above: Performed By: #### C MP ####[facility] Kjncyjvkvg[address] [place], [place] [address]Dr. Emelina Navarro Creatinine [Mass/Vol] 1.60 mg/dL Critically high 0.70-1.30 [facility] Comment on above: Performed By: #### C MP ####[facility] B[address]fwzr[address] [place], [place] [id number]. Emelina Navarro EGFR-AF E[place] 52 mL/min/1.73m2 Critically low >=60 [facility] Comment on above: Performed By: #### C MP ####[facility] [address]fx[address] [place], [place] [id number]. Emelina Navarro EGFR-NON AF [place] 43 mL/min/1.73m2 Critically low >=60 [facility] Comment on above: Performed By: #### C MP ####[facility] Epvrjjiaiu6921 [place] [phone]. Emelina Navarro Globulin (S) [Mass/Vol] 4.6 g/dL Normal [facility] Comment on above: Performed By: #### C MP ####[facility] Qfulvmgkqz1011 [place] [phone]. Emelina Ramon Glucose [Mass/Vol] 76 mg/dL Normal 74-106 [facility] Comment on above: Performed By: #### C MP ####[place] [facility] [address] [place] [address]Dr. Emelina Navarro Potassium [Moles/Vol] 3.4 mmol/L Critically low 3.5-5.1 [facility] Comment on above: Performed By: #### C MP ####[facility] [address] [place] [address] [address]Dr. Emelina Navarro Protein [Mass/Vol] 7.5 g/dL Normal 6.4-8.2 [facility] Comment on above: Performed By: #### C MP ####[facility] [address] [place], [place] [address]Dr. Emelina Navarro Sodium [Moles/Vol] 139 mmol/L Normal 136-145 [facility] Comment on above: Performed By: #### C MP ####[facility] P[address] [place], [place] [address]Dr. Emelina Navarro Urea nitrogen [Mass/Vol] 30.0 mg/dL Critically high 7.0-18.0 [facility] Comment on above: Performed By: #### C MP ####[facility] T[address] [place], [place] [address]Dr. Emelina Navarro Urea nitrogen/Creatinine [Mass ratio] 18.8 mg/mg Normal [facility] Comment on above: Performed By: #### C MP ####[facility] Uzeaf[address]ss[address] [place], [place] [address]Dr. Emelina Navarro PROTIMEon 03-27-2023 INR Coag (PPP) [Relative time] 2.58 {INR} Normal [facility] Comment on above: Performed By: #### P T ####[facility] Sp[address] [place], [place] [address]Dr. Emelina Navarro INR GUIDELINES SEE BELOW Normal [facility] Comment on above: Result Comment: WENDY RED INR: 2.0 - 3.0 CONDITIONS NOT LISTED BELOW 2.5 - 3.5 FOR PROSTHETIC HEART VALVE REPLACEMENT 2.5 - 3.5 RECURRENT THROMBOSIS Performed By: #### P T ####[facility] N[address] [place], [place] [address]Dr. Emelina Navarro PT Coag (PPP) [Time] 25.9 s Critically high 9.0-11.6 [facility] Comment on above: Performed By: #### P T ####[facility] [address] [place], [place] [address]Dr. Emelina Navarro T4on 03-27-2023 T4 [Mass/Vol] 6.50 ug/dL Normal 4.50-12.10 [facility] Comment on above: Performed By: #### T 4 ####[facility] Z[address] [place], [place] [address]Dr. Emelina Navarro TSHon 03-27-2023 TSH 5.619 uIU/mL Critically high 0.358-3.74 0 [facility] Comment on above: Performed By: #### L IPID, TSH ####[facility] X[address] [place], [place] [address]Dr. Emelina Navarro US FERNY DOP LEG RTon 03-27-20 23 US FERNY DOP LEG RT Normal [facility] XR CHEST 1 Von 03-27-2023 XR CHEST 1 V Normal [facility] XR FOOT RT MIN 3 VIEWSon XR FOOT RT MIN 3 VIEWS Normal [facility] BNPon 03-26-2023 Natriuretic peptide B (Bld) [Mass/Vol] 07414.0 pg/mL Critically high <=900.0 [facility] Comment on above: Performed By: #### B MP, CRP, CMADM, BNP ####[facility] W[address]ziokpfbu[address] [place], [place] [address]Dr. Emelina Navarro CARDIAC IMTIAZ ADMITon 023 CK [Catalytic activity/Vol] 48 U/L Normal 39-308 [facility] Comment on above: Performed By: #### B MP, CRP, CMADM, BNP ####[facility] [address] [place], [place] [address]Dr. Emelina Navarro CK.MB [Mass/Vol] 1.48 ng/mL Normal <=3.60 [facility] Comment on above: Performed By: #### B MP, CRP, CMADM, BNP ####[facility] [address] [place], [place] [address]Dr. Emelina Navarro HSTROP 49.9 pg/mL Normal 4.0-76.1 [facility] Comment on above: Result Comment: CUT- OFF POINTS HAVE BEEN ESTABLISHED BASED ON THE FOURTH UNIVERSAL DEFINITIONS OF MYOCARDIALINFARCTION. THE UPPER REFERENCE LIMIT (URL) OF TROPONIN, DEFINED THE 99TH PERCENTILE OFcTnI DISTRIBUTION IN A REFERENCE POPULATION, HAS BEEN CONFIRMED THE DECISION THRESHOLDFOR RI DIAGNOSIS. Performed By: #### B MP, CRP, CMADM, BNP ####[facility] [address] [place] [address]Dr. Emelina Navarro URBANO 117 ng/mL Critically high 16-96 [facility] Comment on above: Performed By: #### B MP, CRP, CMADM, BNP ####[facility] [address] [place] [address]Dr. Emelina Navarro CBC AUTO DIFFon 03-26-2023 BASO # 0.1 103/ul Normal 0.0-0.1 [facility] Comment on above: Performed By: #### C BC ####[facility] [address]zxfs[address] [place], [place] [address]Dr. Emelina Navarro Basophils/100 WBC (Bld) 0.4 % Normal 0.2-2.0 [facility] Comment on above: Performed By: #### C BC ####[facility] Z[address] [place], [place] [address]Dr. Emelina Navarro EO # 0.5 103/ul Normal 0.0-0.7 [facility] Comment on above: Performed By: #### C BC ####[facility] Q[address] [place], [place] [address]Dr. Emelina Navarro Eosinophils/100 WBC (Bld) 3.5 % Normal 0.9-7.0 [facility] Comment on above: Performed By: #### C BC ####[facility] [address] [place] [address]Dr. Emelina Navarro Erythrocyte distribution width (RBC) [Ratio] 17.7 % Critically high 11.0-15.0 [facility] Comment on above: Performed By: #### C BC ####[facility] [address] [place] [address]Dr. Emelina Navarro Hematocrit (Bld) [Volume fraction] 42.6 % Normal 42.0-54.0 [facility] Comment on above: Performed By: #### C BC ####[facility] [address] [place] [address]Dr. Emelina Navarro Hemoglobin (Bld) [Mass/Vol] 14.2 g/dL Normal 14.0-18.0 [facility] Comment on above: Performed By: #### C BC ####[facility] [address] [place] [address]Dr. Emelina Navarro IG # 0.09 10e3/ul Critically high 0.00-0.03 [facility] Comment on above: Performed By: #### C BC ####[facility] F[address] [place], [place] [address]Dr. Emelina Navarro IG % 0.7 % Critically high 0.0-0.5 [facility] Comment on above: Performed By: #### C BC ####[facility] Q[address] [place], [place] [address]Dr. Emelina Navarro LYMPH # 2.3 103/ul Normal 1.2-3.8 [facility] Comment on above: Performed By: #### C BC ####[facility] Zyaoblercq[address] [place], [place] [address]Dr. Emelina Navarro Lymphocytes/100 WBC (Bld) 17.3 % Critically low 20.5-60.0 [facility] Comment on above: Performed By: #### C BC ####[facility] [address] [place] [address]Dr. Emelina Navarro MANUAL DIFF REQ NO Normal [facility] Comment on above: Performed By: #### C BC ####[facility] [address] [place], [place] [address]Dr. Emelina Navarro MCH (RBC) [Entitic mass] 29.6 pg Normal 25.9-34.0 [facility] Comment on above: Performed By: #### C BC ####[facility] [address] [place] [id number]. Emelina Navarro MCHC (RBC) [Mass/Vol] 33.3 g/dL Normal 29.9-35.2 [facility] Comment on above: Performed By: #### C BC ####[facility] [address] [place] [id number]. Emelina Navarro MCV (RBC) [Entitic vol] 88.9 fL Normal 80.0-94.0 [facility] Comment on above: Performed By: #### C BC ####[facility] [address] [place] [id number]. Emelina Navarro MONO # 1.3 103/ul Critically high 0.3-0.8 [facility] Comment on above: Performed By: #### C BC ####[facility] [address]lepnl[address] [place] [id number]. Awildanitza Navarro Monocytes/100 WBC (Bld) 9.7 % Normal 1.7-12.0 [facility] Comment on above: Performed By: #### C BC ####[facility] [address]ms[address] [place] [id number]. Emelina Navarro NEUT # 9.2 103/ul Critically high 1.4-6.5 [facility] Comment on above: Performed By: #### C BC ####[facility] [address] [place] [id number]. Awildanitza Navarro Neutrophils/100 WBC (Bld) 68.4 % Normal 43.0-75.0 [facility] Comment on above: Performed By: #### C BC ####[facility] [address] [place] [id number]. Emelina Navarro Platelet mean volume (Bld) [Entitic vol] 9.6 fL Normal 9.5-13.5 [facility] Comment on above: Performed By: #### C BC ####[facility] [address] [place] [id number]. Emelina Navarro PLT 271 103/ul Normal 150-450 [facility] Comment on above: Performed By: #### C BC ####[facility] [address] [place] [id number]. Emelina Navarro RBC 4.79 106/ul Normal 4.70-6.10 [facility] Comment on above: Performed By: #### C BC ####[facility] [address] [place] [address]Dr. Emelina Navarro WBC 13.4 103/ul Critically high 4.0-11.0 [facility] Comment on above: Performed By: #### C BC ####[facility] [address] [place] [address]Dr. Emelina Ramon CRPon 03-26-2023 CRP 4.6 mg/dL Critically high <=1.0 [facility] Comment on above: Performed By: #### B MP, CRP, CMADM, BNP ####[facility] [address] [place] [address]Dr. Emelina Navarro LACTATE/LACTIC ACIDon 2022 Lactate [Moles/Vol] 1.6 mmol/L Normal 0.4-2.0 [facility] Comment on above: Performed By: #### L ACT ####[facility] [address]wjf[address]ono[address] [place], [place] [address]Dr. Emelina Navarro PROF CHEM 8 (BAS METB)on Anion gap [Moles/Vol] 9.6 mmol/L Normal [facility] Comment on above: Performed By: #### B MP, CRP, CMADM, BNP ####[facility] [address] [place] [address]Dr. Emelina Navarro Calcium [Mass/Vol] 8.4 mg/dL Critically low 8.5-10.1 [facility] Comment on above: Performed By: #### B MP, CRP, CMADM, BNP ####[facility] [address] [place] [address]Dr. Emelina Navarro Chloride [Moles/Vol] 102 mmol/L Normal 98-107 [facility] Comment on above: Performed By: #### B MP, CRP, CMADM, BNP ####[facility] [address]xdie[address] [place] [address]Dr. Emelina Navarro CO2 [Moles/Vol] 30.9 mmol/L Normal 21.0-32.0 [facility] Comment on above: Performed By: #### B MP, CRP, CMADM, BNP ####[facility] [address]se[address] [place], [place] [address]Dr. Emelina Navarro Creatinine [Mass/Vol] 1.73 mg/dL Critically high 0.70-1.30 [facility] Comment on above: Performed By: #### B MP, CRP, CMADM, BNP ####[facility] [address] [place], [place] [address]Dr. Emelina Navarro EGFR-AF EAST [place] 48 mL/min/1.73m2 Critically low >=60 [facility] Comment on above: Performed By: #### B MP, CRP, CMADM, BNP ####[facility] [address]edx[address] [place], [place] [address]Dr. Emelina Navarro EGFR-NON AF [place] 39 mL/min/1.73m2 Critically low >=60 [facility] Comment on above: Performed By: #### B MP, CRP, CMADM, BNP ####[facility] Pr[address]pe[address] [place], [place] [address]Dr. Emelina Navarro Glucose [Mass/Vol] 73 mg/dL Critically low 74-106 [facility] Comment on above: Performed By: #### B MP, CRP, CMADM, BNP ####[facility] [address]kswmrkcem[address] [place], [place] [address]Dr. Emelina Navarro Potassium [Moles/Vol] 3.5 mmol/L Normal 3.5-5.1 [facility] Comment on above: Performed By: #### B MP, CRP, CMADM, BNP ####[facility] [address] [place], [place] [address]Dr. Emelina Navarro Sodium [Moles/Vol] 139 mmol/L Normal 136-145 [facility] Comment on above: Performed By: #### B MP, CRP, CMADM, BNP ####[facility] [address] [place], [place] [address]Dr. Emelina Navarro Urea nitrogen [Mass/Vol] 29.0 mg/dL Critically high 7.0-18.0 [facility] Comment on above: Performed By: #### B MP, CRP, CMADM, BNP ####[facility] [address] [place], [place] [address]Dl. Emelina Navarro Urea nitrogen/Creatinine [Mass ratio] 16.8 mg/mg Normal [facility] Comment on above: Performed By: #### B MP, CRP, CMADM, BNP ####[facility] [address] [place], [place] [address]Uk. Emelina Navarro SED RATE WESTERGRENon 2022 SED RATE 60 mm/hr Critically high <=20 [facility] Comment on above: Performed By: #### S EDR ####[facility] [address] [place] [id number]. Emelina Navarro Office Visiton 03-21-2023 Follow-up visit [id number] Adwoa Porter 1955 M Date Provider Department Center 03/21/2023 [id number] BELCHER [facility] Family History Problem Relation Age of Onset Diabetes Mother Hypertension Mother Coronary artery disease Mother Family Status - Relation Status Age at Mother Level of Service:57485 [place] OFFICE/OUTPATIENT ESTABLISHED MOD MDM 30-39 MIN Normal [facility] Basic Metabolic Panelon 04-0 Anion gap [Moles/Vol] 13.7 mmol/L Normal 6.0-15.0 [facility] Comment on above: Order Comment: pt is non fasting Performed By: #### G LULS #### Point of Care testing , Calcium [Mass/Vol] 9.2 mg/dL Normal 8.6-10.3 [facility] Comment on above: Order Comment: pt is non fasting Result Comment: PERF ORMED BY: [facility] [address] [place] [address] PATHOLOGIST WINDOW DECORATOR RAFA BYRNE M.D. Performed By: #### G LULS #### Point of Care testing , Chloride [Moles/Vol] 94 mmol/L Low 98-107 [facility] Comment on above: Order Comment: pt is non fasting Performed By: #### G LULS #### Point of Care testing , CO2 [Moles/Vol] 31.1 mmol/L High 21.0-31.0 [facility] [place] Comment on above: Order Comment: pt is non fasting Performed By: #### G LULS #### Point of Care testing , Creatinine [Mass/Vol] 1.57 mg/dL High 0.70-1.30 [facility] Comment on above: Order Comment: pt is non fasting Performed By: #### G LULS #### Point of Care testing , GFR/1.73 sq M.predicted MDRD (S/P/Bld) [Vol rate/Area] 47.712 mL/min/{1.73_m2} Normal [facility] [place] Comment on above: Order Comment: pt is non fasting Performed By: #### G LULS #### Point of Care testing , Glucose [Mass/Vol] 67 mg/dL Low 70-100 [facility] Comment on above: Order Comment: pt is non fasting Result Comment: [facility] Glucose Reference Range is dependent on time and content of last meal. Glucose of more than 200 mg/dL in a nonstressed, ambulatory subject supports the diagnosis of Diabetes Mellitus. ADA recommended reference range Performed By: #### G LULS #### Point of Care testing , Potassium [Moles/Vol] 3.8 mmol/L Normal 3.5-5.1 [facility] Comment on above: Order Comment: pt is non fasting Performed By: #### G LULS #### Point of Care testing , Sodium [Moles/Vol] 135 mmol/L Low 136-145 [facility] Comment on above: Order Comment: pt is non fasting Performed By: #### G LULS #### Point of Care testing , Urea nitrogen [Mass/Vol] 25 mg/dL Normal 7-25 [facility] Comment on above: Order Comment: pt is non fasting Performed By: #### G LULS #### Point of Care testing , Calcium [Mass/volume] in Ser um or PlasmaOrdered By: Yakov To on 02-21-2023 Calcium [Mass/Vol] 9.2 mg/dL 8.6-10.3 [facility] Carbon dioxide, total [Moles /volume] in Serum or PlasmaOrdered By: Yakov To on 02-21-2023 CO2 [Moles/Vol] 31.1 mmol/L 21.0-31.0 [facility] [place] Chloride [Moles/volume] in S mary or PlasmaOrdered By: Yakov To on 02-21-2023 Chloride [Moles/Vol] 94 mmol/L 98-107 [facility] Creatinine [Mass/volume] in Serum or PlasmaOrdered By: Yakov To on 02-21-2023 Creatinine [Mass/Vol] 1.57 mg/dL 0.70-1.30 [facility] Glucose [Mass/volume] in Ser um or PlasmaOrdered By: Yakov To on 02-21-2023 Glucose [Mass/Vol] 67 mg/dL 70-100 [facility] Comment on above: ADA recommended refe rence rangeRandom Glucose Reference Range is dependent on time and content of last meal. Glucose of more than 200 mg/dL in a nonstressed, ambulatory subject supports the diagnosis of Diabetes Mellitus. No Panel InformationOrdered By: Yakov To on 02-21-2023 Estimated GFR (CKD-EPI) 47.712 mL/Min [facility] Creatinine Clearance (Chem N/A [facility] Potassium [Moles/volume] in Serum or PlasmaOrdered By: Yakov To on 02-21-2023 Potassium [Moles/Vol] 3.8 mmol/L 3.5-5.1 [facility] Serum or plasma anion gap de terminationOrdered By: Yakov To on 02-21-2023 Anion gap [Moles/Vol] 13.7 mmol/L 6.0-15.0 [facility] Sodium [Moles/volume] in Ser um or PlasmaOrdered By: Yakov To on 02-21-2023 Sodium [Moles/Vol] 135 mmol/L 136-145 [facility] Urea nitrogen [Mass/volume] in Serum or PlasmaOrdered By: Yakov To on 02-21-2023 Urea nitrogen [Mass/Vol] 25 mg/dL 7-25 [facility] Calcium [Mass/volume] in Ser um or PlasmaOrdered By: Yakov To on 02-14-2023 Calcium [Mass/Vol] 9.1 mg/dL 8.6-10.3 [facility] Carbon dioxide, total [Moles /volume] in Serum or PlasmaOrdered By: Yakov To on 02-14-2023 CO2 [Moles/Vol] 30.7 mmol/L 21.0-31.0 [facility] [place] Chloride [Moles/volume] in S mary or PlasmaOrdered By: Yakov To on 02-14-2023 Chloride [Moles/Vol] 95 mmol/L 98-107 [facility] Creatinine [Mass/volume] in Serum or PlasmaOrdered By: Yakov To on 02-14-2023 Creatinine [Mass/Vol] 1.65 mg/dL 0.70-1.30 [facility] Glucose Glucometer (BldC) [M ass/Vol]Ordered By: Yakov To on 02-14-2023 Glucose [Mass/Vol] 197 mg/dL [facility] Comment on above: Random Glucose Refer ence Range is dependent on time and content of last meal. Glucose of more than 200 mg/dL in a nonstressed, ambulatory subject supports the diagnosis of Diabetes Mellitus. Glucose Poct Glucometerson 0 02-14-2023 Glucose [Mass/Vol] 197 mg/dL Normal [facility] Comment on above: Result Comment: [facility] Glucose Reference Range is dependent on time and content of last meal. Glucose of more than 200 mg/dL in a nonstressed, ambulatory subject supports the diagnosis of Diabetes Mellitus. PERFORMED BY: [facility] [address] [place] [address] PATHOLOGIST WINDOW DECORATOR RAFA BYRNE M.D. Performed By: #### G ALVARADO #### Point of Care testing , Glucose [Mass/Vol] 350 mg/dL Normal [facility] Comment on above: Result Comment: [facility] Glucose Reference Range is dependent on time and content of last meal. Glucose of more than 200 mg/dL in a nonstressed, ambulatory subject supports the diagnosis of Diabetes Mellitus. PERFORMED BY: [facility] [place] [address] PATHOLOGIST WINDOW DECORATOR RAFA BYRNE M.D. Performed By: #### G LUCAROL #### Point of Care testing , Glucose [Mass/volume] in Ser um or PlasmaOrdered By: Yakov To on 02-14-2023 Glucose [Mass/Vol] 193 mg/dL 70-100 [facility] Comment on above: Delta: 400 on [...] from glycated hemoglobin (Bld) [Mass/Vol] 252 mg/dL [facility] Hemoglobin A1c percentageOrd ered By: Yakov To on 02-14-2023 HbA1c (Bld) [Mass fraction] 10.4 % 4.3-5.6 [facility] Comment on above: Increased risk for d iabetes: 5.7 - 6.4diabetes: >6.4glycemic control for adults with diabetes: <7.0 Laboratory - Chemistry and C hemistry - challengeOrdered By: Yakov To on 02-14-2023 GFR/1.73 sq M.predicted MDRD (S/P/Bld) [Vol rate/Area] 44.950 mL/min/{1.73_m2} [facility] [place] Laboratory - CoagulationOrde red By: Yakov To on 02-14-2023 PT Coag (PPP) [Time] 25.6 s 9.0-12.9 [facility] Magnesium [Mass/volume] in S mary or PlasmaOrdered By: Yakov To on 02-14-2023 Magnesium [Mass/Vol] 2.4 mg/dL 1.9-2.7 [facility] No Panel InformationOrdered By: Yakov To on 02-14-2023 Pharmacy Creatinine Clearance (Chem 49.22 [facility] Platelet poor plasma interna tional normalized ratio (INR) by coagulation assay (relatOrdered By: Yakov To on 02-14-2023 INR Coag (PPP) [Relative time] 2.2 {INR} [facility] Comment on above: INR Therapeutic Rang [...] 02-14-2023 Potassium [Moles/Vol] 3.7 mmol/L Normal 3.5-5.1 [facility] Comment on above: Result Comment: PERF ORMED BY: [facility] [address] [place] [address] PATHOLOGIST WINDOW DECORATOR RAFA BYRNE M.D. Performed By: #### G LULS #### Point of Care testing , Potassium [Moles/volume] in Serum or PlasmaOrdered By: Yakov To on 02-14-2023 Potassium [Moles/Vol] 3.7 mmol/L 3.5-5.1 [facility] Serum or plasma anion gap de terminationOrdered By: Yakov To on 02-14-2023 Anion gap [Moles/Vol] 13.4 mmol/L 6.0-15.0 [facility] Sodium [Moles/volume] in Ser um or PlasmaOrdered By: Yakov To on 02-14-2023 Sodium [Moles/Vol] 136 mmol/L 136-145 [facility] Comment on above: Delta: 129 on -1648 Urea nitrogen [Mass/volume] in Serum or PlasmaOrdered By: Yakov To on 02-14-2023 Urea nitrogen [Mass/Vol] 43 mg/dL 7-25 [facility] Activated partial thrombopla stin time (aPTT) in platelet poor plasma by coagulation aOrdered By: Angela Aden on 02-13-2023 aPTT Coag (PPP) [Time] 38.3 s 25.1-36.5 [facility] Alanine aminotransferase [En zymatic activity/volume] in Serum or PlasmaOrdered By: Angela Aden on 02-13-2023 ALT [Catalytic activity/Vol] 21 U/L 7-52 [facility] Albumin [Mass/volume] in Ser um or Plasma by Bromocresol green (BCG) dye binding methoOrdered By: Angela Aden on 02-13-2023 Albumin BCG dye [Mass/Vol] 4.3 g/dL 3.5-5.7 [facility] Alkaline phosphatase [Enzyma tic activity/volume] in Serum or PlasmaOrdered By: Angela Aden on 02-13-2023 ALP [Catalytic activity/Vol] 98 U/L 34-104 [facility] Aspartate aminotransferase [ Enzymatic activity/volume] in Serum or PlasmaOrdered By: Angela Aden on 02-13-2023 AST [Catalytic activity/Vol] 32 U/L 13-39 [facility] Basophils Auto (Bld) [#/Vol] Ordered By: Angela Aden on 02-13-2023 Basophils (Bld) [#/Vol] 0.1 10*3/uL 0.0-0.2 [facility] Basophils/100 WBC Auto (Bld) Ordered By: Angela Aden on 02-13-2023 Basophils/100 WBC (Bld) 0.6 % . [facility] Beta hydroxybutyrate [Moles/ volume] in Serum or PlasmaOrdered By: Angela Aden on 02-13-2023 Beta hydroxybutyrate [Moles/Vol] 0.10 mmol/L 0.02-0.27 [facility] Bilirubin Test strip Ql (U)O rdered By: Angela Aden on 02-13-2023 Bilirubin Ql (U) Negative Negative [facility] [place] Bilirubin.total [Mass/volume ] in Serum or PlasmaOrdered By: Angela Aden on 02-13-2023 Bilirubin [Mass/Vol] 1.3 mg/dL 0.3-1.0 [facility] Comment on above: Samples from patient s who have taken Naproxen have shown spurious elevation in Total Bilirubin levels. A metabolite of Naproxen, O-desmethylnaproxen, has been shown to interfere with the Jesi-Ananya method for measuring Total Bilirubin. Calcium [Mass/volume] in Ser um or PlasmaOrdered By: Angela Aden on 02-13-2023 Calcium [Mass/Vol] 9.3 mg/dL 8.6-10.3 [facility] Carbon dioxide, total [Moles /volume] in Serum or PlasmaOrdered By: Angela Aden on 02-13-2023 CO2 [Moles/Vol] 31.6 mmol/L 21.0-31.0 [facility] [place] Chloride [Moles/volume] in S mary or PlasmaOrdered By: Angela Aden on 02-13-2023 Chloride [Moles/Vol] 85 mmol/L 98-107 [facility] Color Auto (U)Ordered By: Miguel Aden on 02-13-2023 Color (U) Yellow Yellow [facility] Creatinine [Mass/volume] in Serum or PlasmaOrdered By: Angela Aden on 02-13-2023 Creatinine [Mass/Vol] 2.06 mg/dL 0.70-1.30 [facility] Eosinophils Auto (Bld) [#/Vo l]Ordered By: Angela Aden on 02-13-2023 Eosinophils (Bld) [#/Vol] 0.4 10*3/uL 0.0-0.45 [facility] Eosinophils/100 WBC Auto (Bl d)Ordered By: Angela Aden on 02-13-2023 Eosinophils/100 WBC (Bld) 2.9 % . [facility] Erythrocyte distribution wid th Auto (RBC) [Ratio]Ordered By: Angela Aden on 02-13-2023 Erythrocyte distribution width (RBC) [Ratio] 17.9 % 12.0-14.8 [facility] Globulin Calc (S) [Mass/Vol] Ordered By: Angela Aden on 02-13-2023 Globulin (S) [Mass/Vol] 3.6 g/dL [facility] Glucose Glucometer (BldC) [M ass/Vol]Ordered By: Yakov To on 02-13-2023 Glucose [Mass/Vol] 216 mg/dL [facility] Comment on above: Random Glucose Refer ence Range is dependent on time and content of last meal. Glucose of more than 200 mg/dL in a nonstressed, ambulatory subject supports the diagnosis of Diabetes Mellitus. Glucose [Mass/volume] in Ser um or PlasmaOrdered By: Angela Aden on 02-13-2023 Glucose [Mass/Vol] 400 mg/dL 70-100 [facility] Comment on above: ADA recommended refe rence rangeRandom Glucose Reference Range is dependent on time and content of last meal. Glucose of more than 200 mg/dL in a nonstressed, ambulatory subject supports the diagnosis of Diabetes Mellitus. Hematocrit Auto (Bld) [Volum e fraction]Ordered By: Angela Aden on 02-13-2023 Hematocrit (Bld) [Volume fraction] 48.8 % 38.8-50.0 [facility] Hemoglobin [Mass/volume] in BloodOrdered By: Angela Aden on 02-13-2023 Hemoglobin (Bld) [Mass/Vol] 16.6 g/dL 13.0-17.0 [facility] Ketones Auto test strip (U) [Mass/Vol]Ordered By: Angela Aden on 02-13-2023 Ketones (U) [Mass/Vol] Negative Negative [facility] Laboratory - Chemistry and C hemistry - challengeOrdered By: Angela Aden on 02-13-2023 CO2 [Moles/Vol] 32.7 mmol/L 23.0-27.0 [facility] [place] HCO3 (Bld) [Moles/Vol] 31.2 mmol/L 23.0-29.0 [facility] GFR/1.73 sq M.predicted MDRD (S/P/Bld) [Vol rate/Area] 34.441 mL/min/{1.73_m2} [facility] [place] Laboratory - CoagulationOrde red By: Angela Aden on 02-13-2023 PT Coag (PPP) [Time] 26.1 s 9.0-12.9 [facility] Leukocytes [#/volume] correc morris for nucleated erythrocytes in Blood by Automated counOrdered By: Angela Aden on 02-13-2023 WBC corrected for nucl RBC Auto (Bld) [#/Vol] 12.0 10*3/uL 4.1-10.5 [facility] Lymphocytes Auto (Bld) [#/Vo l]Ordered By: Angela Aden on 02-13-2023 Lymphocytes (Bld) [#/Vol] 2.1 10*3/uL 1.00-4.8 [facility] Lymphocytes/100 WBC Auto (Bl d)Ordered By: Angela Aden on 02-13-2023 Lymphocytes/100 WBC (Bld) 17.7 % . [facility] MCH Auto (RBC) [Entitic mass ]Ordered By: Angela Aden on 02-13-2023 MCH (RBC) [Entitic mass] 29.0 pg 27.5-35.2 [facility] MCHC Auto (RBC) [Mass/Vol]Or dered By: Angela Aden on 02-13-2023 MCHC (RBC) [Mass/Vol] 34.0 g/dL 32.5-35.6 [facility] MCV Auto (RBC) [Entitic vol] Ordered By: Angela Aden on 02-13-2023 MCV (RBC) [Entitic vol] 85.2 fL 83.5-101 [facility] Magnesium [Mass/volume] in S mary or PlasmaOrdered By: Yakov To on 02-13-2023 Magnesium [Mass/Vol] 2.5 mg/dL 1.9-2.7 [facility] Monocyte distribution width [Entitic volume] in Blood by AutomatedOrdered By: Angela Aden on 02-13-2023 Monocyte distribution width Auto (Bld) [Entitic vol] 19.79 % 0.00-20.00 [facility] Monocytes Auto (Bld) [#/Vol] Ordered By: Angela Aden on 02-13-2023 Monocytes (Bld) [#/Vol] 1.0 10*3/uL 0.0-0.8 [facility] Monocytes/100 WBC Auto (Bld) Ordered By: Angela Aden on 02-13-2023 Monocytes/100 WBC (Bld) 8.0 % . [facility] Neutrophils Auto (Bld) [#/Vo l]Ordered By: Angela Aden on 02-13-2023 Neutrophils (Bld) [#/Vol] 8.5 10*3/uL 1.8-7.7 [facility] Neutrophils/100 WBC Auto (Bl d)Ordered By: Angela Aden on 02-13-2023 Neutrophils/100 WBC (Bld) 70.8 % . [facility] Nitrite Test strip Ql (U)Ord ered By: Angela Aden on 02-13-2023 Nitrite Ql (U) Negative Negative [facility] No Panel InformationOrdered By: Angela Aden on 02-13-2023 Arterial Blood Base Excess 5.2 mmol/L -3.0-3.0 [facility] Arterial Blood Oxygen Content 9.0 mmol/L 6.6-9.7 [facility] Arterial Blood Oxygen Saturation 83.4 % 95.0-100.0 [facility] Arterial Blood Partial Pressure CO2 49.4 mm[Hg] 35.0-45.0 [facility] Arterial Blood Partial Pressure O2 48.2 mm[Hg] 80.0-100.0 [facility] Arterial Blood pH 7.42 7.35-7.45 [facility] Blood Gas Critical Value See comment [facility] Comment on above: Critical Value rdz d on: 02/13/2023 at 17:04 Blood Gas Sample Site Venous Fir [facility] FiO2 21 % [facility] Creatinine Clearance (Chem 39.26 [facility] Bedside Glucose Comment See comment [facility] Comment on above: Glu2: WILL NOTIFY DR /RN Nucleated erythrocytes [Pres ence] in Blood by Automated countOrdered By: Angela Aden on 02-13-2023 Nucleated RBC Auto Ql (Bld) 0.1 /100{WBC} 0-0.5 [facility] Platelet mean volume Auto (B ld) [Entitic vol]Ordered By: Angela Aden on 02-13-2023 Platelet mean volume (Bld) [Entitic vol] 8.6 fL 6.6-10.1 [facility] Platelet poor plasma interna tional normalized ratio (INR) by coagulation assay (relatOrdered By: Angela Aden on 02-13-2023 INR Coag (PPP) [Relative time] 2.3 {INR} [facility] Comment on above: INR Therapeutic Rang [...] 02-13-2023 Platelets (Bld) [#/Vol] 218 10*3/uL 150-450 [facility] Potassium [Moles/volume] in Serum or PlasmaOrdered By: Angela Aden on 02-13-2023 Potassium [Moles/Vol] 2.9 mmol/L 3.5-5.1 [facility] Comment on above: Hemolysis is present at a level that could interfere with the result. Protein Auto test strip (U) [Mass/Vol]Ordered By: Angela Aden on 02-13-2023 Protein (U) [Mass/Vol] Negative Negative [facility] Protein [Mass/volume] in Ser um or PlasmaOrdered By: Angela Aden on 02-13-2023 Protein [Mass/Vol] 7.9 g/dL 6.4-8.9 [facility] RBC Auto (Bld) [#/Vol]Ordere d By: Angela Aden on 02-13-2023 RBC (Bld) [#/Vol] 5.72 10*6/uL 3.90-5.60 [facility] Serum or plasma albumin/glob ulin mass ratioOrdered By: Angela Aden on 02-13-2023 Albumin/Globulin [Mass ratio] 1.2 {ratio} [facility] Serum or plasma anion gap de terminationOrdered By: Angela Aden on 02-13-2023 Anion gap [Moles/Vol] 15.3 mmol/L 6.0-15.0 [facility] Sodium [Moles/volume] in Ser um or PlasmaOrdered By: Angela Aden on 02-13-2023 Sodium [Moles/Vol] 129 mmol/L 136-145 [facility] Specific gravity Auto test s trip (U) [Rel density]Ordered By: Angela Aden on 02-13-2023 Specific gravity (U) [Rel density] 1.018 1.001-1.03 0 [facility] Troponin I.cardiac [Mass/vol ume] in Serum or Plasma by Detection limit <= 0.01 ng/Ordered By: Angela Adne on 02-13-2023 Troponin I.cardiac DL <= 0.01 ng/mL [Mass/Vol] 69.4 pg/mL 0.0-20.0 [facility] Comment on above: Critical Result : Ca lled to and read back by: PROMISE VIEIRA at: 02/13/2023 18:35:16 by:[id number] Urea nitrogen [Mass/volume] in Serum or PlasmaOrdered By: Angela Aden on 02-13-2023 Urea nitrogen [Mass/Vol] 53 mg/dL 7-25 [facility] Urine clarity by refractomet ry automatedOrdered By: Angela Aden on 02-13-2023 Clarity Refractometry automated (U) Clear Clear [facility] Urine glucose measurement by automated test strip (mass/volume)Ordered By: Angela Aden on 02-13-2023 Glucose Auto test strip (U) [Mass/Vol] >=1000 mg/dL Normal [facility] Urine hemoglobin detection b y automated test stripOrdered By: Angela Aden on 02-13-2023 Hemoglobin Auto test strip Ql (U) Negative Negative [facility] Urine leukocyte esterase det ection by automated test stripOrdered By: Angela Aden on 02-13-2023 Leukocyte esterase Auto test strip Ql (U) Negative Negative [facility] Urobilinogen Auto test strip (U) [Mass/Vol]Ordered By: Angela Aden on 02-13-2023 Urobilinogen (U) [Mass/Vol] Normal mg/dL Normal [facility] WBC Auto (Bld) [#/Vol]Ordere d By: Angela Aden on 02-13-2023 WBC (Bld) [#/Vol] 12.0 10*3/uL 4.1-10.5 [facility] pH Auto test strip (U)Ordere d By: Angela Aden on 02-13-2023 pH (U) 6.0 [pH] 5.0-9.0 [facility] BNPon 01-29-2023 Natriuretic peptide B (Bld) [Mass/Vol] 6099.0 pg/mL Critically high <=900.0 [facility] Comment on above: Performed By: #### C MP, BNP ####[facility] [address] [place], [place] [address]Dr. Emelina Navarro CBC AUTO DIFFon 01-29-2023 BASO # 0.1 103/ul Normal 0.0-0.1 [facility] Comment on above: Performed By: #### C BC ####[facility] [address] [place], [place] [address]Dr. Emelina Navarro Basophils/100 WBC (Bld) 0.3 % Normal 0.2-2.0 [facility] Comment on above: Performed By: #### C BC ####[facility] [address] [place], [place] [address]Dr. Emelina Navarro EO # 0.3 103/ul Normal 0.0-0.7 [facility] Comment on above: Performed By: #### C BC ####[facility] J[address] [place], [place] [address]Dr. Emelina Navarro Eosinophils/100 WBC (Bld) 1.9 % Normal 0.9-7.0 [facility] Comment on above: Performed By: #### C BC ####[facility] [address] [place], [place] [address]Dr. Emelina Navarro Erythrocyte distribution width (RBC) [Ratio] 18.5 % Critically high 11.0-15.0 [facility] Comment on above: Performed By: #### C BC ####[facility] [address] [place] [address]Dr. Emelina Navarro Hematocrit (Bld) [Volume fraction] 49.7 % Normal 42.0-54.0 [facility] Comment on above: Performed By: #### C BC ####[facility] [address] [place] [address]Dr. Emelina Navarro Hemoglobin (Bld) [Mass/Vol] 16.3 g/dL Normal 14.0-18.0 [facility] Comment on above: Performed By: #### C BC ####[facility] [address] [place], [place] [address]Dr. Emelina Navarro IG # 0.07 10e3/ul Critically high 0.00-0.03 [facility] Comment on above: Performed By: #### C BC ####[facility] H[address] [place], [place] [address]Dr. Awildanitza Navarro IG % 0.4 % Normal 0.0-0.5 [facility] Comment on above: Performed By: #### C BC ####[facility] J[address] [place], [place] [address]Dr. Emelina Ramon LYMPH # 2.6 103/ul Normal 1.2-3.8 [facility] Comment on above: Performed By: #### C BC ####[facility] [address] [place], [place] [address]Dr. Emelina Ramon Lymphocytes/100 WBC (Bld) 16.9 % Critically low 20.5-60.0 [facility] Comment on above: Performed By: #### C BC ####[facility] [address] [place], [place] [address]Dr. Awildanitza Navarro MANUAL DIFF REQ NO Normal [facility] Comment on above: Performed By: #### C BC ####[facility] [address] [place] [address]Dr. Emelina Ramon MCH (RBC) [Entitic mass] 28.4 pg Normal 25.9-34.0 [facility] Comment on above: Performed By: #### C BC ####[facility] [address] [place] [id number]. Emelina Navarro MCHC (RBC) [Mass/Vol] 32.8 g/dL Normal 29.9-35.2 [facility] Comment on above: Performed By: #### C BC ####[facility] [address] [place] [id number]. Emelina Ramon MCV (RBC) [Entitic vol] 86.6 fL Normal 80.0-94.0 [facility] Comment on above: Performed By: #### C BC ####[facility] [address] [place] [id number]. Emelina Ramon MONO # 1.2 103/ul Critically high 0.3-0.8 [facility] Comment on above: Performed By: #### C BC ####[facility] [address] [place], [place] [address]Dr. Emelina Navarro Monocytes/100 WBC (Bld) 7.7 % Normal 1.7-12.0 [facility] Comment on above: Performed By: #### C BC ####[facility] [address] [place], [place] [address]Dr. Emelina Navarro NEUT # 11.4 103/ul Critically high 1.4-6.5 [facility] Comment on above: Performed By: #### C BC ####[facility] Db[address] [place], [place] [address]Dr. Emelina Navarro Neutrophils/100 WBC (Bld) 72.8 % Normal 43.0-75.0 [facility] Comment on above: Performed By: #### C BC ####[facility] [address] [place], [place] [id number]. Emelina Navarro Platelet mean volume (Bld) [Entitic vol] 9.8 fL Normal 9.5-13.5 [facility] Comment on above: Performed By: #### C BC ####[facility] [address] [place], [place] [address]Dr. Emelina Navarro PLT 200 103/ul Normal 150-450 [facility] Comment on above: Performed By: #### C BC ####[facility] [address] [place], [place] [address]Ul. Emelina Navarro RBC 5.74 106/ul Normal 4.70-6.10 [facility] Comment on above: Performed By: #### C BC ####[facility] [address] [place], [place] [address]Kw. Emelina Navarro WBC 15.6 103/ul Critically high 4.0-11.0 [facility] Comment on above: Performed By: #### C BC ####[facility] [address] [place], [place] [address]Br. Emelina Navarro DIGOXINon 01-29-2023 DIG 1.1 ng/mL Normal 0.9-2.0 [facility] Comment on above: Performed By: #### D IG ####[facility] [address] [place] [id number]. Emelina Navarro Office Visiton 01-29-2023 Follow-up visit [id number] Adwoa Porter 1955 M Date Provider Department Center 01/29/2023 SUSHIL CAO [facility] Family History Problem Relation Age of Onset Diabetes Mother Hypertension Mother Coronary artery disease Mother Family Status - Relation Status Age at Mother Level of Service:35365 [place] OFFICE/OUTPATIENT ESTABLISHED MOD MDM 30-39 MIN Reason for Visit and Comments: Atrial Fibrillation [80] Coronary Artery Disease [187] Congestive Heart Failure [127] Normal [facility] PROF 14(COMP METB)on 023 Albumin [Mass/Vol] 3.8 g/dL Normal 3.4-5.0 [facility] Comment on above: Performed By: #### C MP, BNP ####[facility] [address] [place] [id number]. Emelina Navarro Albumin/Globulin [Mass ratio] 0.9 {ratio} Normal [facility] Comment on above: Performed By: #### C MP, BNP ####[facility] [address] [place] [id number]. Emelina Navarro ALP [Catalytic activity/Vol] 126 U/L Critically high 46-116 [facility] Comment on above: Performed By: #### C MP, BNP ####[facility] [address] [place] [address]Dr. Emelina Navarro ALT [Catalytic activity/Vol] 29 U/L Normal 16-63 [facility] Comment on above: Performed By: #### C MP, BNP ####[facility] [address]xgc[address] [place] [address]Dr. Awildanitza Ramon Anion gap [Moles/Vol] 12.2 mmol/L Normal [facility] Comment on above: Performed By: #### C MP, BNP ####[facility] [address] [place], [place] [address]Dr. Awildanitza Navarro AST [Catalytic activity/Vol] 28 U/L Normal 15-37 [facility] Comment on above: Performed By: #### C MP, BNP ####[facility] [address]ms[address] [place], [place] [address]Dr. Emelina Navarro Bilirubin [Mass/Vol] 1.8 mg/dL Critically high 0.2-1.0 [facility] Comment on above: Performed By: #### C MP, BNP ####[facility] N[address]scz[address] [place], [place] [address]Dr. Emelina Navarro Calcium [Mass/Vol] 9.9 mg/dL Normal 8.5-10.1 [facility] Comment on above: Performed By: #### C MP, BNP ####[facility] T[address]ujmy[address] [place], [place] [address]Dr. Emelina Navarro Chloride [Moles/Vol] 96 mmol/L Critically low 98-107 [facility] Comment on above: Performed By: #### C MP, BNP ####[facility] Frggddwxzi[address] [place], [place] [address]Dr. Emelina Navarro CO2 [Moles/Vol] 33.6 mmol/L Critically high 21.0-32.0 [facility] Comment on above: Performed By: #### C MP, BNP ####[facility] F[address]mees[address] [place], [place] [address]Dr. Emelina Navarro Creatinine [Mass/Vol] 1.66 mg/dL Critically high 0.70-1.30 [facility] Comment on above: Performed By: #### C MP, BNP ####[facility] Azqii[address] [place], [place] [address]Dr. Emelina Navarro EGFR-AF [place] 50 mL/min/1.73m2 Critically low >=60 [facility] Comment on above: Performed By: #### C MP, BNP ####[facility] X[address] [place], [place] [address]Dr. Emelina Navarro EGFR-NON AF [place] 41 mL/min/1.73m2 Critically low >=60 [facility] Comment on above: Performed By: #### C MP, BNP ####[facility] Ab[address]xr[address] [place], [place] [address]Dr. Emelina Navarro Globulin (S) [Mass/Vol] 4.3 g/dL Normal [facility] Comment on above: Performed By: #### C MP, BNP ####[facility] Efoglxlyix[address] [place], [place] [address]Dr. Emelina Navarro Glucose [Mass/Vol] 218 mg/dL Critically high 74-106 [facility] Comment on above: Performed By: #### C MP, BNP ####[facility] M[address]ccspwbsh[address] [place], [place] [address]Dr. Emelina Navarro Potassium [Moles/Vol] 4.8 mmol/L Normal 3.5-5.1 [facility] Comment on above: Performed By: #### C MP, BNP ####[facility] Plfuijrndw[address] [place], [place] [address]Dr. Emelina Navarro Protein [Mass/Vol] 8.1 g/dL Normal 6.4-8.2 [facility] Comment on above: Performed By: #### C MP, BNP ####[facility] [address]etvml[address] [place], [place] [address]Dr. Emelina Navarro Sodium [Moles/Vol] 137 mmol/L Normal 136-145 [facility] Comment on above: Performed By: #### C MP, BNP ####[facility] [address]es[address] [place], [place] [address]Dr. Emelina Navarro Urea nitrogen [Mass/Vol] 31.0 mg/dL Critically high 7.0-18.0 [facility] Comment on above: Performed By: #### C MP, BNP ####[facility] Sp[address]iwfs[address] [place], [place] [address]Dr. Emelina Navarro Urea nitrogen/Creatinine [Mass ratio] 18.7 mg/mg Normal [facility] Comment on above: Performed By: #### C MP, BNP ####[facility] Ex[address]yracyzl[address] [place], [place] [address]Dr. Emelina Navarro BNPon 01-11-2023 Natriuretic peptide B (Bld) [Mass/Vol] 6024.0 pg/mL Critically high <=900.0 [facility] Comment on above: Performed By: #### B CONSTRUCTION DIRECTOR, CMP ####[facility] U[address]pfwmh[address] [place], [place] [address]Dr. Emelina Navarro CBC AUTO DIFFon 01-11-2023 BASO # 0.0 103/ul Normal 0.0-0.1 [facility] Comment on above: Performed By: #### C BC ####[facility] Tr[address]omji[address] [place], [place] [address]Dr. Emelina Navarro Basophils/100 WBC (Bld) 0.3 % Normal 0.2-2.0 [facility] Comment on above: Performed By: #### C BC ####[facility] [address]erszsf[address] [place], [place] [address]Dr. Emelina Navarro EO # 0.4 103/ul Normal 0.0-0.7 [facility] Comment on above: Performed By: #### C BC ####[facility] G[address]pxuux[address] [place], [place] [address]Dr. Emelina Navarro Eosinophils/100 WBC (Bld) 3.3 % Normal 0.9-7.0 [facility] Comment on above: Performed By: #### C BC ####[facility] Oee[address]tdu[address] [place], [place] [address]Dr. Emelina Navarro Erythrocyte distribution width (RBC) [Ratio] 16.7 % Critically high 11.0-15.0 [facility] Comment on above: Performed By: #### C BC ####[facility] [address] [place] [address]Dr. Emelina Navarro Hematocrit (Bld) [Volume fraction] 41.5 % Critically low 42.0-54.0 [facility] Comment on above: Performed By: #### C BC ####[facility] [address]uf[address]aje[address] [place] [address]Dr. Emelina Navarro Hemoglobin (Bld) [Mass/Vol] 13.8 g/dL Critically low 14.0-18.0 [facility] Comment on above: Performed By: #### C BC ####[facility] [address]fc[address] [place], [place] [address]DrWesley Navarro IG # 0.04 10e3/ul Critically high 0.00-0.03 [facility] Comment on above: Performed By: #### C BC ####[facility] Ucy[address]yh[address] [place], [place] [address]Dr. Emelina Navarro IG % 0.3 % Normal 0.0-0.5 [facility] Comment on above: Performed By: #### C BC ####[facility] [address] [place], [place] [address]DrWesley Navarro LYMPH # 1.8 103/ul Normal 1.2-3.8 [facility] Comment on above: Performed By: #### C BC ####[facility] [address] [place], [place] [address]DrWesley Navarro Lymphocytes/100 WBC (Bld) 15.1 % Critically low 20.5-60.0 [facility] Comment on above: Performed By: #### C BC ####[facility] [address]qsu[address] [place], [place] [address]DrWesley Navarro MANUAL DIFF REQ NO Normal [facility] Comment on above: Performed By: #### C BC ####[facility] [address] [place] [address]Dr. Emelina Navarro MCH (RBC) [Entitic mass] 29.0 pg Normal 25.9-34.0 [facility] Comment on above: Performed By: #### C BC ####[facility] [address]dt[address] [place] [address]Dr. Emelina Ramno MCHC (RBC) [Mass/Vol] 33.3 g/dL Normal 29.9-35.2 [facility] Comment on above: Performed By: #### C BC ####[facility] [address] [place] [address]Dr. Emelina Navarro MCV (RBC) [Entitic vol] 87.2 fL Normal 80.0-94.0 [facility] Comment on above: Performed By: #### C BC ####[facility] [address]wvozpb[address] [place], [place] [address]Dr. Emelina Navarro MONO # 0.7 103/ul Normal 0.3-0.8 [facility] Comment on above: Performed By: #### C BC ####[facility] Arqpzfpflz[address] [place], [place] [address]Dr. Emelina Navarro Monocytes/100 WBC (Bld) 5.9 % Normal 1.7-12.0 [facility] Comment on above: Performed By: #### C BC ####[facility] [address]grzs[address] [place], [place] [address]Dr. Emelina Navarro NEUT # 8.9 103/ul Critically high 1.4-6.5 [facility] Comment on above: Performed By: #### C BC ####[facility] [address]xy[address]xwfcy[address] [place], [place] [address]Dr. Emelina Navarro Neutrophils/100 WBC (Bld) 75.1 % Critically high 43.0-75.0 [facility] Comment on above: Performed By: #### C BC ####[facility] [address]xqyzhrwq[address] [place], [place] [address]Dr. Emelina Navarro Platelet mean volume (Bld) [Entitic vol] 11.7 fL Normal 9.5-13.5 [facility] Comment on above: Performed By: #### C BC ####[facility] [address] [place], [place] [address]Dr. Emelina Navarro PLT 124 103/ul Critically low 150-450 [facility] Comment on above: Performed By: #### C BC ####[facility] [address] [place] [address]Dr. Awildanitza Ramon RBC 4.76 106/ul Normal 4.70-6.10 [facility] Comment on above: Performed By: #### C BC ####[facility] [address] [place] [address]Dr. Awildanitza Ramon WBC 11.8 103/ul Critically high 4.0-11.0 [facility] Comment on above: Performed By: #### C BC ####[facility] [address]ifus[address] [place] [address]Dr. Emelina Navarro POINT OF CARE GLUCOSEon 12-21 Glucose [Mass/Vol] 339 mg/dL Critically high 74-106 [facility] Comment on above: Performed By: #### P OCGLUC ####[facility] [address]ss[address] [place], [place] [address]DrWesley Navarro PROF 14(COMP METB)on 023 Albumin [Mass/Vol] 3.3 g/dL Critically low 3.4-5.0 [facility] Comment on above: Performed By: #### B CONSTRUCTION DIRECTOR, CMP ####[facility] [address]rik[address] [place] [address]Dr. Emelina Navarro Albumin/Globulin [Mass ratio] 0.8 {ratio} Normal [facility] Comment on above: Performed By: #### B CONSTRUCTION DIRECTOR, CMP ####[facility] [address] [place] [address]Dr. Emelina Navarro ALP [Catalytic activity/Vol] 163 U/L Critically high 46-116 [facility] Comment on above: Performed By: #### B CONSTRUCTION DIRECTOR, CMP ####[facility] Xdhgctrllg[address] [place] [address]Dr. Emelina Navarro ALT [Catalytic activity/Vol] 27 U/L Normal 16-63 [facility] Comment on above: Performed By: #### B CONSTRUCTION DIRECTOR, CMP ####[facility] Iidsuggsok[address] [place], [place] [address]Dr. Emelina Navarro Anion gap [Moles/Vol] 10.5 mmol/L Normal [facility] Comment on above: Performed By: #### B CONSTRUCTION DIRECTOR, CMP ####[facility] Pxwljiitws[address] [place], [place] [address]Dr. Emelina Navarro AST [Catalytic activity/Vol] 28 U/L Normal 15-37 [facility] Comment on above: Performed By: #### B CONSTRUCTION DIRECTOR, CMP ####[facility] Bpptwjwnuv[address] [place], [place] [address]Dr. Emelina Navarro Bilirubin [Mass/Vol] 1.3 mg/dL Critically high 0.2-1.0 [facility] Comment on above: Performed By: #### B CONSTRUCTION DIRECTOR, CMP ####[facility] Yuifxyafxb[address] [place], [place] [address]Dr. Emelina Navarro Calcium [Mass/Vol] 9.0 mg/dL Normal 8.5-10.1 [facility] Comment on above: Performed By: #### B CONSTRUCTION DIRECTOR, CMP ####[facility] Homtvyuhaw[address] [place], [place] [address]Dr. Emelina Ramon Chloride [Moles/Vol] 91 mmol/L Critically low 98-107 [facility] Comment on above: Performed By: #### B CONSTRUCTION DIRECTOR, CMP ####[facility] Kwhgdgqpru[address] [place], [place] [address]Dr. Emelina Navarro CO2 [Moles/Vol] 32.9 mmol/L Critically high 21.0-32.0 [facility] Comment on above: Performed By: #### B CONSTRUCTION DIRECTOR, CMP ####[facility] Aamnetxmql[address] [place], [place] [address]Dr. Emelina Navarro Creatinine [Mass/Vol] 1.84 mg/dL Critically high 0.70-1.30 [facility] Comment on above: Performed By: #### B CONSTRUCTION DIRECTOR, CMP ####[facility] Ghoqvwgxwi[address] [place], [place] [address]Dr. Emelina Ramon EGFR-AF EAST [place] 45 mL/min/1.73m2 Critically low >=60 [facility] Comment on above: Performed By: #### B CONSTRUCTION DIRECTOR, CMP ####[facility] Zrjwyhjcco[address] [place] [id number]. Emelina Navarro EGFR-NON AF EAST [place] 37 mL/min/1.73m2 Critically low >=60 [facility] Comment on above: Performed By: #### B CONSTRUCTION DIRECTOR, CMP ####[facility] Imxdduqyhs5[address] [place] [id number]. Emelina Navarro Globulin (S) [Mass/Vol] 4.3 g/dL Normal [facility] Comment on above: Performed By: #### B CONSTRUCTION DIRECTOR, CMP ####[facility] Iyubyiviza6035 [place] [address]Dr. Emelina Navarro Glucose [Mass/Vol] 305 mg/dL Critically high 74-106 [facility] Comment on above: Performed By: #### B CONSTRUCTION DIRECTOR, CMP ####[facility] Eqtganeaxr7[address] [place], [place] [address]Dr. Emelina Navarro Potassium [Moles/Vol] 3.4 mmol/L Critically low 3.5-5.1 [facility] Comment on above: Performed By: #### B CONSTRUCTION DIRECTOR, CMP ####[facility] Ldrbqythvi5[address] [place], [place] [address]Dr. Emelina Navarro Protein [Mass/Vol] 7.6 g/dL Normal 6.4-8.2 [facility] Comment on above: Performed By: #### B CONSTRUCTION DIRECTOR, CMP ####[facility] Ivlxuejkqq4[address] [place], [place] [address]Dr. Emelina Navarro Sodium [Moles/Vol] 131 mmol/L Critically low 136-145 [facility] Comment on above: Performed By: #### B CONSTRUCTION DIRECTOR, CMP ####[facility] Mtekzbtixf4[address] [place], [place] [address]Dr. Emelina Navarro Urea nitrogen [Mass/Vol] 62.0 mg/dL Critically high 7.0-18.0 [facility] Comment on above: Performed By: #### B CONSTRUCTION DIRECTOR, CMP ####[facility] Glduqfrhkp[address] [place], [place] [address]Dr. Emelina Navarro Urea nitrogen/Creatinine [Mass ratio] 33.7 mg/mg Normal [facility] Comment on above: Performed By: #### B CONSTRUCTION DIRECTOR, CMP ####[facility] Kgegcilsei00[address] [place], [place] [address]Dr. Emelina Navarro BNPon 01-10-2023 Natriuretic peptide B (Bld) [Mass/Vol] 8763.0 pg/mL Critically high <=900.0 [facility] Comment on above: Performed By: #### C MP, BNP ####[facility] Knyvambeqa94[address] [place], [place] [address]Dr. Emelina Navarro CBC AUTO DIFFon 01-10-2023 BASO # 0.0 103/ul Normal 0.0-0.1 [facility] Comment on above: Performed By: #### C BC ####[facility] Nehahrjwlj64[address] [place], [place] [address]Dr. Emelina Navarro Basophils/100 WBC (Bld) 0.4 % Normal 0.2-2.0 [facility] Comment on above: Performed By: #### C BC ####[facility] Mhvequitep5[address] [place], [place] [address]Dr. Awildanitza Navarro EO # 0.3 103/ul Normal 0.0-0.7 [facility] Comment on above: Performed By: #### C BC ####[facility] Oahtssagju9[address] [place], [place] [address]Dr. Emelina Ramon Eosinophils/100 WBC (Bld) 2.8 % Normal 0.9-7.0 [facility] Comment on above: Performed By: #### C BC ####[facility] Utfzwtdfms6[address] [place], [place] [address]Dr. Awildanitza Navarro Erythrocyte distribution width (RBC) [Ratio] 17.2 % Critically high 11.0-15.0 [facility] Comment on above: Performed By: #### C BC ####[facility] Orpqcmdbqm8026[address] [place], [place] [address]Dr. Awildanitza Ramon Hematocrit (Bld) [Volume fraction] 42.1 % Normal 42.0-54.0 [facility] Comment on above: Performed By: #### C BC ####[facility] Jpmfsvdsoc60[address] [place] [address]Dr. Emelina Navarro Hemoglobin (Bld) [Mass/Vol] 13.3 g/dL Critically low 14.0-18.0 [facility] Comment on above: Performed By: #### C BC ####[facility] Pxktsyrjza73[address] [place] [address]Dr. Emelina Navarro IG # 0.05 10e3/ul Critically high 0.00-0.03 [facility] Comment on above: Performed By: #### C BC ####[facility] Tscyfpolvx3834 [place] [address]Dr. Emelina Navarro IG % 0.4 % Normal 0.0-0.5 [facility] Comment on above: Performed By: #### C BC ####[facility] Mmamcwjbup07[address] [place] [address]Dr. Emelina Navarro LYMPH # 1.7 103/ul Normal 1.2-3.8 [facility] Comment on above: Performed By: #### C BC ####[facility] Eduzxfzgrs2372 [place] [address]Dr. Emelina Navarro Lymphocytes/100 WBC (Bld) 14.8 % Critically low 20.5-60.0 [facility] Comment on above: Performed By: #### C BC ####[facility] Tmahnnkals64[address] [place] [address]Dr. Emelina Navarro MANUAL DIFF REQ NO Normal [facility] Comment on above: Performed By: #### C BC ####[facility] Djzjfmuoos02[address] [place] [address]Dr. Emelina Navarro MCH (RBC) [Entitic mass] 28.4 pg Normal 25.9-34.0 [facility] Comment on above: Performed By: #### C BC ####[facility] Hsuvbutjsp7[address] [place] [address]Dr. Emelina Navarro MCHC (RBC) [Mass/Vol] 31.6 g/dL Normal 29.9-35.2 [facility] Comment on above: Performed By: #### C BC ####[facility] Koaflurcir[address] [place], [place] [address]Dr. Emelina Navarro MCV (RBC) [Entitic vol] 89.8 fL Normal 80.0-94.0 [facility] Comment on above: Performed By: #### C BC ####[facility] Idtszwvock0678 [place] [address]Dr. Emelina Navarro MONO # 0.9 103/ul Critically high 0.3-0.8 [facility] Comment on above: Performed By: #### C BC ####[facility] Kmnqkcydjx2419 [place] [address]Dr. Emelina Navarro Monocytes/100 WBC (Bld) 7.6 % Normal 1.7-12.0 [facility] Comment on above: Performed By: #### C BC ####[facility] Ycvwqygfqw1895 [place] [address]Dr. Emelina Navarro NEUT # 8.4 103/ul Critically high 1.4-6.5 [facility] Comment on above: Performed By: #### C BC ####[facility] Yhnggubiuh9754 [place] [address]Dr. Emelina Navarro Neutrophils/100 WBC (Bld) 74.0 % Normal 43.0-75.0 [facility] Comment on above: Performed By: #### C BC ####[facility] Gkyjbxbtfv4551 [place] [address]Dr. Emelina Navarro Platelet mean volume (Bld) [Entitic vol] 11.1 fL Normal 9.5-13.5 [facility] Comment on above: Performed By: #### C BC ####[facility] Umfgtodbqi3948 [place] [address]Dr. Emelina Navarro PLT 111 103/ul Critically low 150-450 [facility] Comment on above: Performed By: #### C BC ####[facility] Xoxzrevxns4[address] [place] [id number]. Emelina Navarro RBC 4.69 106/ul Critically low 4.70-6.10 [facility] Comment on above: Performed By: #### C BC ####[facility] Ezzbiihvml8520 [place] [address]Dr. Emelina Navarro WBC 11.4 103/ul Critically high 4.0-11.0 [facility] Comment on above: Performed By: #### C BC ####[facility] Ktgovzsryd6[address] [place], [place] [address]Dr. Emelina Navarro PROF 14(COMP METB)on 023 Albumin [Mass/Vol] 3.3 g/dL Critically low 3.4-5.0 [facility] Comment on above: Performed By: #### C MP, BNP ####[facility] Eidvopeyqm66[address] [place], [place] [address]Dr. Emelina Navarro Albumin/Globulin [Mass ratio] 0.8 {ratio} Normal [facility] Comment on above: Performed By: #### C MP, BNP ####[facility] Ciprindean94[address] [place], [place] [address]Dr. Emelina Navarro ALP [Catalytic activity/Vol] 165 U/L Critically high 46-116 [facility] Comment on above: Performed By: #### C MP, BNP ####[facility] Jpnxpegzau[address] [place], [place] [address]Dr. Emelina Navarro ALT [Catalytic activity/Vol] 27 U/L Normal 16-63 [facility] Comment on above: Performed By: #### C MP, BNP ####[facility] Xqpqpxkffg5845[address] [place], [place] [address]Dr. Emelina Navarro Anion gap [Moles/Vol] 9.5 mmol/L Normal [facility] Comment on above: Performed By: #### C MP, BNP ####[facility] Mgandxbeqb112[address] [place], [place] [address]Dr. Emelina Navarro AST [Catalytic activity/Vol] 24 U/L Normal 15-37 [facility] Comment on above: Performed By: #### C MP, BNP ####[facility] Cnvwrrypgf0723[address] [place], [place] [address]Dr. Emelina Navarro Bilirubin [Mass/Vol] 1.3 mg/dL Critically high 0.2-1.0 [facility] Comment on above: Performed By: #### C MP, BNP ####[facility] Vxadljfbfv3404 [place] [address]Dr. Emelina Navarro Calcium [Mass/Vol] 9.3 mg/dL Normal 8.5-10.1 [facility] Comment on above: Performed By: #### C MP, BNP ####[facility] Yqjgjpualf1819 [place] [address]Dr. Emelina Navarro Chloride [Moles/Vol] 93 mmol/L Critically low 98-107 [facility] Comment on above: Performed By: #### C MP, BNP ####[facility] Qrrkcyscai0306 [place] [address]Dr. Emelina Navarro CO2 [Moles/Vol] 36.4 mmol/L Critically high 21.0-32.0 [facility] Comment on above: Performed By: #### C MP, BNP ####[facility] Erejnalggn[address] [place], [place] [address]Dr. Emelina Navarro Creatinine [Mass/Vol] 1.99 mg/dL Critically high 0.70-1.30 [facility] Comment on above: Performed By: #### C MP, BNP ####[facility] Ikrtidaqfz2566[address] [place], [place] [address]Dr. Emelina Navarro EGFR-AF E[place] 41 mL/min/1.73m2 Critically low >=60 [facility] Comment on above: Performed By: #### C MP, BNP ####[facility] Xsasqmtajn0[address] [place], [place] [address]Dr. Emelina Navarro EGFR-NON AF E[place] 34 mL/min/1.73m2 Critically low >=60 [facility] Comment on above: Performed By: #### C MP, BNP ####[facility] Nebbtrlxzt4963 [place] [address]Dr. Emelina Navarro Globulin (S) [Mass/Vol] 4.2 g/dL Normal [facility] Comment on above: Performed By: #### C MP, BNP ####[facility] Aybxjzcldl8036 [place] [address]Dr. Emelina Navarro Glucose [Mass/Vol] 311 mg/dL Critically high 74-106 [facility] Comment on above: Performed By: #### C MP, BNP ####[facility] Pptqbwsrfh5[address] [place], [place] [address]Dr. Emelina Navarro Potassium [Moles/Vol] 3.9 mmol/L Normal 3.5-5.1 [facility] Comment on above: Performed By: #### C MP, BNP ####[facility] Kccsulhcar18[address] [place], [place] [address]Dr. Emelina Navarro Protein [Mass/Vol] 7.5 g/dL Normal 6.4-8.2 [facility] Comment on above: Performed By: #### C MP, BNP ####[facility] Ykfnryhhpm4716[address] [place], [place] [address]Dr. Emelina Navarro Sodium [Moles/Vol] 135 mmol/L Critically low 136-145 [facility] Comment on above: Performed By: #### C MP, BNP ####[facility] Svscolgwqj6960[address] [place], [place] [address]Dr. Emelina Navarro Urea nitrogen [Mass/Vol] 57.0 mg/dL Critically high 7.0-18.0 [facility] Comment on above: Performed By: #### C MP, BNP ####[facility] Hfptyvdvok[address] [place], [place] [address]Dr. Emelina Navarro Urea nitrogen/Creatinine [Mass ratio] 28.6 mg/mg Normal [facility] Comment on above: Performed By: #### C MP, BNP ####[facility] Atvqmlgbzn4269[address] [place], [place] [address]Dr. Emelina Navarro BNPon 01-09-2023 Natriuretic peptide B (Bld) [Mass/Vol] 9097.0 pg/mL Critically high <=900.0 [facility] Comment on above: Performed By: #### B CONSTRUCTION DIRECTOR, CMP ####[facility] Mlvtblchks[address] [place], [place] [address]Dr. Emelina Navarro CBC AUTO DIFFon 01-09-2023 BASO # 0.0 103/ul Normal 0.0-0.1 [facility] Comment on above: Performed By: #### C BC ####[facility] Oqdadicbto54[address] [place] [id number]. Emelina Navarro Basophils/100 WBC (Bld) 0.2 % Normal 0.2-2.0 [facility] Comment on above: Performed By: #### C BC ####[facility] Hmhqourzzg0470 [place] [phone]. Emelina Navarro EO # 0.2 103/ul Normal 0.0-0.7 [facility] Comment on above: Performed By: #### C BC ####[facility] Xiunggiemt47[address] [place], [place] [address]Dr. Emelina Navarro Eosinophils/100 WBC (Bld) 2.1 % Normal 0.9-7.0 [facility] Comment on above: Performed By: #### C BC ####[facility] Gmhffapbyz34[address] [place], [place] [address]Dr. Emelina Navarro Erythrocyte distribution width (RBC) [Ratio] 17.1 % Critically high 11.0-15.0 [facility] Comment on above: Performed By: #### C BC ####[facility] Njmkyjpicf[address] [place], [place] [address]Dr. Emelina Navarro Hematocrit (Bld) [Volume fraction] 40.5 % Critically low 42.0-54.0 [facility] Comment on above: Performed By: #### C BC ####[facility] Dcvgudbobh3865 [place] [phone]. Emelina Navarro Hemoglobin (Bld) [Mass/Vol] 13.0 g/dL Critically low 14.0-18.0 [facility] Comment on above: Performed By: #### C BC ####[facility] Wzpmlsbuns1435 [place] [id number]. Emelina Navarro IG # 0.06 10e3/ul Critically high 0.00-0.03 [facility] Comment on above: Performed By: #### C BC ####[facility] X[address]fil[address] [place], [place] [id number]. Emelina Navarro IG % 0.5 % Normal 0.0-0.5 [facility] Comment on above: Performed By: #### C BC ####[facility] Jrhlumnjie8316 [place], [place] [address]Tx. Emeilna Navarro LYMPH # 1.6 103/ul Normal 1.2-3.8 [facility] Comment on above: Performed By: #### C BC ####[facility] Sbokzhxbyp9486 [place], [place] [address]Gn. Emelina Navarro Lymphocytes/100 WBC (Bld) 14.1 % Critically low 20.5-60.0 [facility] Comment on above: Performed By: #### C BC ####[facility] Nrrpehjvcx6509 [place] [id number]. Emelina Navarro MANUAL DIFF REQ NO Normal [facility] Comment on above: Performed By: #### C BC ####[facility] Wegkwixejd6334 [place] [phone]. Emelina Navarro MCH (RBC) [Entitic mass] 28.4 pg Normal 25.9-34.0 [facility] Comment on above: Performed By: #### C BC ####[facility] Aisaibhthw4897 [place] [phone]. Emelina Navarro MCHC (RBC) [Mass/Vol] 32.1 g/dL Normal 29.9-35.2 [facility] Comment on above: Performed By: #### C BC ####[facility] Zkajidcncn4441 [place] [phone]. Emelina Navarro MCV (RBC) [Entitic vol] 88.4 fL Normal 80.0-94.0 [facility] Comment on above: Performed By: #### C BC ####[facility] Esxjijgcdh8718 [place] [id number]. Emelina Navarro MONO # 0.9 103/ul Critically high 0.3-0.8 [facility] Comment on above: Performed By: #### C BC ####[facility] Qsixovdocx8411 [place] [phone]. Emelina Navarro Monocytes/100 WBC (Bld) 8.0 % Normal 1.7-12.0 [facility] Comment on above: Performed By: #### C BC ####[facility] Mogdvzkigb8868 [place] [phone]. Emelina Navarro NEUT # 8.6 103/ul Critically high 1.4-6.5 [facility] Comment on above: Performed By: #### C BC ####[facility] Uhrsqgtglu7427 [place] [phone]. Emelina Navarro Neutrophils/100 WBC (Bld) 75.1 % Critically high 43.0-75.0 [facility] Comment on above: Performed By: #### C BC ####[facility] Wqyjnchiro3984 [place] [phone]. Emelina Navarro Platelet mean volume (Bld) [Entitic vol] 11.2 fL Normal 9.5-13.5 [facility] Comment on above: Performed By: #### C BC ####[facility] Rocwxyhrfo1363 [place] [phone]. Emelina Navarro PLT 99 103/ul Critically low 150-450 [facility] Comment on above: Performed By: #### C BC ####[facility] Kszqesuitb1342 [place] [phone]. Emelina Navarro RBC 4.58 106/ul Critically low 4.70-6.10 [facility] Comment on above: Performed By: #### C BC ####[facility] Lifsgdsjkr3581 [place] [phone]. Emelina Navarro WBC 11.5 103/ul Critically high 4.0-11.0 [facility] Comment on above: Performed By: #### C BC ####[facility] Vysvvbignj9473 [place] [phone]. Emelina Navarro CT HEAD WO CONon 01-09-2023 CT HEAD WO CON Normal [facility] PROF 14(COMP METB)on 023 Albumin [Mass/Vol] 3.2 g/dL Critically low 3.4-5.0 [facility] Comment on above: Performed By: #### B CONSTRUCTION DIRECTOR, CMP ####[facility] Fwqincqqnz0239 [place] [address]Dr. Emelina Navarro Albumin/Globulin [Mass ratio] 0.8 {ratio} Normal [facility] Comment on above: Performed By: #### B CONSTRUCTION DIRECTOR, CMP ####[facility] Ogqcutftdq4180 [place] [address]Dr. Emelina Navarro ALP [Catalytic activity/Vol] 150 U/L Critically high 46-116 [facility] Comment on above: Performed By: #### B CONSTRUCTION DIRECTOR, CMP ####[facility] Ibrjphwmvs5069 [place] [address]Dr. Emleina Navarro ALT [Catalytic activity/Vol] 27 U/L Normal 16-63 [facility] Comment on above: Performed By: #### B CONSTRUCTION DIRECTOR, CMP ####[facility] Kfyapywqzd[address] [place], [place] [address]Dr. Emelina Navarro Anion gap [Moles/Vol] 9.7 mmol/L Normal [facility] Comment on above: Performed By: #### B CONSTRUCTION DIRECTOR, CMP ####[facility] Lsxloeihbr[address] [place], [place] [address]Dr. Emelina Navarro AST [Catalytic activity/Vol] 29 U/L Normal 15-37 [facility] Comment on above: Performed By: #### B CONSTRUCTION DIRECTOR, CMP ####[facility] Xwhesheqcf[address] [place], [place] [address]Dr. Emelina Navarro Bilirubin [Mass/Vol] 1.3 mg/dL Critically high 0.2-1.0 [facility] Comment on above: Performed By: #### B CONSTRUCTION DIRECTOR, CMP ####[facility] Izvttwjvhp3880 [place] [address]Dr. Emelina Navarro Calcium [Mass/Vol] 9.0 mg/dL Normal 8.5-10.1 [facility] Comment on above: Performed By: #### B CONSTRUCTION DIRECTOR, CMP ####[facility] Dwuwwqfzvv3210 [place] [address]Dr. Emelina Navarro Chloride [Moles/Vol] 93 mmol/L Critically low 98-107 [facility] Comment on above: Performed By: #### B CONSTRUCTION DIRECTOR, CMP ####[facility] Utsrmkjvcb[address] [place], [place] [address]Dr. Emelina Navarro CO2 [Moles/Vol] 33.6 mmol/L Critically high 21.0-32.0 [facility] Comment on above: Performed By: #### B CONSTRUCTION DIRECTOR, CMP ####[facility] Hkufafvtde6[address] [place], [place] [address]Dr. Emelina Navarro Creatinine [Mass/Vol] 1.75 mg/dL Critically high 0.70-1.30 [facility] Comment on above: Performed By: #### B CONSTRUCTION DIRECTOR, CMP ####[facility] Ytbvdbrrfx[address] [place], [place] [address]Dr. Emelina Navarro EGFR-AF EAST [place] 47 mL/min/1.73m2 Critically low >=60 [facility] Comment on above: Performed By: #### B CONSTRUCTION DIRECTOR, CMP ####[facility] Rejmrdtjgd12[address] [place], [place] [address]Dr. Emelina Navarro EGFR-NON AF E[place] 39 mL/min/1.73m2 Critically low >=60 [facility] Comment on above: Performed By: #### B CONSTRUCTION DIRECTOR, CMP ####[facility] Lwsmaelbgv[address] [place], [place] [address]Dr. Emelina Navarro Globulin (S) [Mass/Vol] 4.1 g/dL Normal [facility] Comment on above: Performed By: #### B CONSTRUCTION DIRECTOR, CMP ####[facility] Rpoacheuxn20[address] [place], [place] [address]Dr. Emelina Navarro Glucose [Mass/Vol] 235 mg/dL Critically high 74-106 T [facility] Comment on above: Performed By: #### B CONSTRUCTION DIRECTOR, CMP ####[facility] Vtjyasbmtk[address] [place], [place] [address]Dr. Emelina Navarro Potassium [Moles/Vol] 3.3 mmol/L Critically low 3.5-5.1 [facility] Comment on above: Performed By: #### B CONSTRUCTION DIRECTOR, CMP ####[facility] Kubtpiipef[address] [place], [place] [address]Dr. Emelina Navarro Protein [Mass/Vol] 7.3 g/dL Normal 6.4-8.2 [facility] Comment on above: Performed By: #### B CONSTRUCTION DIRECTOR, CMP ####[facility] Fchlwrqlul[address] [place], [place] [address]Dr. Emelina Navarro Sodium [Moles/Vol] 133 mmol/L Critically low 136-145 [facility] Comment on above: Performed By: #### B CONSTRUCTION DIRECTOR, CMP ####[facility] Wckxtvwvbi[address] [place], [place] [address]Dr. Emelina Navarro Urea nitrogen [Mass/Vol] 50.0 mg/dL Critically high 7.0-18.0 [facility] Comment on above: Performed By: #### B CONSTRUCTION DIRECTOR, CMP ####[facility] [address]fmeomnnjw[address] [place] [id number]. Emelina Ramon Urea nitrogen/Creatinine [Mass ratio] 28.6 mg/mg Normal [facility] Comment on above: Performed By: #### B CONSTRUCTION DIRECTOR, CMP ####[facility] Goxcdnwxcb[address] [place], [place] [address]Dr. mEelina Ramon BNPon 01-08-2023 Natriuretic peptide B (Bld) [Mass/Vol] 8174.0 pg/mL Critically high <=900.0 [facility] Comment on above: Performed By: #### B CONSTRUCTION DIRECTOR ####[facility] Fmdopdumkx[address] [place], [place] [address]Dr. Emelina Ramon CBC AUTO DIFFon 01-08-2023 BASO # 0.0 103/ul Normal 0.0-0.1 [facility] Comment on above: Performed By: #### C BC ####[facility] Dqipqmhyfa[address] [place], [place] [address]Dr. Emelina Ramon Basophils/100 WBC (Bld) 0.2 % Normal 0.2-2.0 [facility] Comment on above: Performed By: #### C BC ####[facility] Lqgwawlocl3[address] [place], [place] [address]Dr. Emelina Navarro EO # 0.2 103/ul Normal 0.0-0.7 [facility] Comment on above: Performed By: #### C BC ####[facility] Cgqafpoxmd[address] [place], [place] [address]Dr. Emelina Navarro Eosinophils/100 WBC (Bld) 1.7 % Normal 0.9-7.0 [facility] Comment on above: Performed By: #### C BC ####[facility] Ujbdfjalxb[address] [place], [place] [address]DrWesley Navarro Erythrocyte distribution width (RBC) [Ratio] 17.4 % Critically high 11.0-15.0 [facility] Comment on above: Performed By: #### C BC ####[facility] Jjsizldapr3927[address] [place], [place] [address]DrWesley Navarro Hematocrit (Bld) [Volume fraction] 40.8 % Critically low 42.0-54.0 [facility] Comment on above: Performed By: #### C BC ####[facility] Piwqhewjbx2278[address] [place], [place] [address]DrWesley Navarro Hemoglobin (Bld) [Mass/Vol] 13.3 g/dL Critically low 14.0-18.0 [facility] Comment on above: Performed By: #### C BC ####[facility] Uwcvtvcaps2706[address] [place], [place] [address]DrWesley Navarro IG # 0.05 10e3/ul Critically high 0.00-0.03 [facility] Comment on above: Performed By: #### C BC ####[facility] Ekhwcnmxya0220[address] [place], [place] [address]DrWesley Navarro IG % 0.4 % Normal 0.0-0.5 [facility] Comment on above: Performed By: #### C BC ####[facility] Ngvvlznlvc1068[address] [place], [place] [address]DrWesley Navarro LYMPH # 1.7 103/ul Normal 1.2-3.8 [facility] Comment on above: Performed By: #### C BC ####[facility] Lwjxlbclbr19[address] [place], [place] [address]DrWesley Navarro Lymphocytes/100 WBC (Bld) 12.5 % Critically low 20.5-60.0 [facility] Comment on above: Performed By: #### C BC ####[facility] Xmqqwczyml1222[address] [place], [place] [address]DrWesley Navarro MANUAL DIFF REQ NO Normal [facility] Comment on above: Performed By: #### C BC ####[facility] Ajduxjdjzq76[address] [place] [id number] Navarro MCH (RBC) [Entitic mass] 29.1 pg Normal 25.9-34.0 [facility] Comment on above: Performed By: #### C BC ####[facility] Kylwmzilfb0542[address] [place], [place] [address]DrWesley Navarro MCHC (RBC) [Mass/Vol] 32.6 g/dL Normal 29.9-35.2 [facility] Comment on above: Performed By: #### C BC ####[facility] Mekzymlteb5816[address] [place], [place] [address]DrWesley Navarro MCV (RBC) [Entitic vol] 89.3 fL Normal 80.0-94.0 [facility] Comment on above: Performed By: #### C BC ####[facility] Vesmzjhlud[address] [place], [place] [address]DrWesley Navarro MONO # 1.0 103/ul Critically high 0.3-0.8 [facility] Comment on above: Performed By: #### C BC ####[facility] Gzciklcnzh9386[address] [place], [place] [address]DrWesley Navarro Monocytes/100 WBC (Bld) 7.6 % Normal 1.7-12.0 [facility] Comment on above: Performed By: #### C BC ####[facility] Bmmhjfcdjo50[address] [place], [place] [address]DrWesley Navarro NEUT # 10.3 103/ul Critically high 1.4-6.5 [facility] Comment on above: Performed By: #### C BC ####[facility] Ndpxzvpwtv7669[address] [place], [place] [address]DrWesley Navarro Neutrophils/100 WBC (Bld) 77.6 % Critically high 43.0-75.0 [facility] Comment on above: Performed By: #### C BC ####[facility] Orekuftwgb8535[address] [place], [place] [address]DrWesley Navarro Platelet mean volume (Bld) [Entitic vol] 11.0 fL Normal 9.5-13.5 [facility] Comment on above: Performed By: #### C BC ####[facility] Bycpsvbobw7835 [place] [id number]. Emelina Navarro PLT 106 103/ul Critically low 150-450 [facility] Comment on above: Performed By: #### C BC ####[facility] Wyfysrqpnp5087 [place] [id number]. Emelina Navarro RBC 4.57 106/ul Critically low 4.70-6.10 [facility] Comment on above: Performed By: #### C BC ####[facility] Opfoqruoam0509 [place] [id number]. Emelina Navarro WBC 13.3 103/ul Critically high 4.0-11.0 [facility] Comment on above: Performed By: #### C BC ####[facility] Fmrnvvotcp9257 [place] [id number]. Emelina Navarro CULTURE URINEon 01-08-2023 CULTURE URINE Culture Observations : LIGHT GROWTH OF MIXED SKIN CEDRIC. NO POTENTIAL PATHOGENS SEEN. Normal [facility] Comment on above: Performed By: #### U RCX ####[facility] Tjtomsnmfm[address] [place] [address]Dr. Emelina Navarro ECHOCARDIO M/2D COMPLETEon 0 01-08-2023 ECHOCARDIO M/2D COMPLETE Normal [facility] PROCALCITONINon 01-08-2023 Procalcitonin 0.10 ng/mL Critically high 0.00-0.08 [facility] Comment on above: Result Comment: .A [...] are obtained. Performed By: #### P CTLC ####[facility] Bpmbxaziku469[address] [place], [place] [address]DrWesley Navarro PROF 14(COMP METB)on 023 Albumin [Mass/Vol] 3.3 g/dL Critically low 3.4-5.0 [facility] Comment on above: Performed By: #### C MP ####[facility] Edvsrjelpt7385[address] [place], [place] [address]Dr. Emelina Navarro Albumin/Globulin [Mass ratio] 0.8 {ratio} Normal [facility] Comment on above: Performed By: #### C MP ####[facility] Ivazyhghxe1148[address] [place], [place] [address]Dr. Emelina Navarro ALP [Catalytic activity/Vol] 140 U/L Critically high 46-116 [facility] Comment on above: Performed By: #### C MP ####[facility] Lrmffazxwp3463[address] [place], [place] [address]Dr. Emelina Navarro ALT [Catalytic activity/Vol] 22 U/L Normal 16-63 [facility] Comment on above: Performed By: #### C MP ####[facility] Rivqwmavdz9409[address] [place], [place] [address]Dr. Emelina Navarro Anion gap [Moles/Vol] 13.1 mmol/L Normal [facility] Comment on above: Performed By: #### C MP ####[facility] Tlldlgowbm5622[address] [place], [place] [address]Dr. Emelina Navarro AST [Catalytic activity/Vol] 21 U/L Normal 15-37 [facility] Comment on above: Performed By: #### C MP ####[facility] Lwnmddiihq4432[address] [place], [place] [address]Dr. Emelina Navarro Bilirubin [Mass/Vol] 1.3 mg/dL Critically high 0.2-1.0 [facility] Comment on above: Performed By: #### C MP ####[facility] Utcdvcopyc5826[address] [place], [place] [address]Dr. Awildanitza Ramon Calcium [Mass/Vol] 9.1 mg/dL Normal 8.5-10.1 [facility] Comment on above: Performed By: #### C MP ####[facility] Fecttawtiz2158[address] [place], [place] [address]Dr. Emelina Navarro Chloride [Moles/Vol] 95 mmol/L Critically low 98-107 [facility] Comment on above: Performed By: #### C MP ####[facility] Ltkdmkzyex4483[address] [place], [place] [address]Dr. Emelina Navarro CO2 [Moles/Vol] 30.4 mmol/L Normal 21.0-32.0 [facility] Comment on above: Performed By: #### C MP ####[facility] Efdenkjxlr5468[address] [place], [place] [address]Dr. Emelina Navarro Creatinine [Mass/Vol] 1.67 mg/dL Critically high 0.70-1.30 [facility] Comment on above: Performed By: #### C MP ####[facility] Acrxobnugw4544[address] [place], [place] [address]Dr. Emelina Navarro EGFR-AF [place] 50 mL/min/1.73m2 Critically low >=60 [facility] Comment on above: Performed By: #### C MP ####[facility] Abhfbfwryf3132[address] [place], [place] [address]DrWesley Navarro EGFR-NON AF [place] 41 mL/min/1.73m2 Critically low >=60 [facility] Comment on above: Performed By: #### C MP ####[facility] Jbbloglrzy2356[address] [place], [place] [address]DrWesley Navarro Globulin (S) [Mass/Vol] 3.9 g/dL Normal [facility] Comment on above: Performed By: #### C MP ####[facility] Tzyeawyhqp6174[address] [place], [place] [address]DrWesley Navarro Glucose [Mass/Vol] 198 mg/dL Critically high 74-106 [facility] Comment on above: Performed By: #### C MP ####[facility] Tmmnrwilfc4[address] [place] [address]Dr. Emelina Navarro Potassium [Moles/Vol] 3.5 mmol/L Normal 3.5-5.1 [facility] Comment on above: Performed By: #### C MP ####[facility] Rjqqztjogl6860 [place] [address]Dr. Emelina Navarro Protein [Mass/Vol] 7.2 g/dL Normal 6.4-8.2 [facility] Comment on above: Performed By: #### C MP ####[facility] Pbzscybpmy2329 [place] [address]Dr. Emelina Navarro Sodium [Moles/Vol] 135 mmol/L Critically low 136-145 [facility] Comment on above: Performed By: #### C MP ####[facility] Liejeakdxr8418[address] [place], [place] [address]Dr. Emelina Navarro Urea nitrogen [Mass/Vol] 42.0 mg/dL Critically high 7.0-18.0 [facility] Comment on above: Performed By: #### C MP ####[facility] Flyvytekzr7695[address] [place], [place] [address]Dr. Emelina Navarro Urea nitrogen/Creatinine [Mass ratio] 25.1 mg/mg Normal [facility] Comment on above: Performed By: #### C MP ####[facility] Oxitqihwnt5376 [place] [address]DrWesley Navarro PROTIMEon 01-08-2023 INR Coag (PPP) [Relative time] 2.59 {INR} Normal [facility] Comment on above: Performed By: #### P T ####[facility] Higgpayqyr9743[address] [place], [place] [address]DrWesley Navarro INR GUIDELINES SEE BELOW Normal [facility] Comment on above: Result Comment: WENDY RED INR: 2.0 - 3.0 CONDITIONS NOT LISTED BELOW 2.5 - 3.5 FOR PROSTHETIC HEART VALVE REPLACEMENT 2.5 - 3.5 RECURRENT THROMBOSIS Performed By: #### P T ####[facility] K[address]wi[address]ugls[address] [place] [address]Dr. Emelina Navarro PT Coag (PPP) [Time] 26.0 s Critically high 9.0-11.6 [facility] Comment on above: Performed By: #### P T ####[facility] Vmloscbwul7467[address] [place], [place] [address]Dr. Emelina Navarro CBC AUTO DIFFon 01-07-2023 BASO # 0.0 103/ul Normal 0.0-0.1 [facility] Comment on above: Performed By: #### C BC ####[facility] Mtmlxnffkr4984[address] [place], [place] [address]Dr. Emelina Navarro Basophils/100 WBC (Bld) 0.3 % Normal 0.2-2.0 [facility] Comment on above: Performed By: #### C BC ####[facility] Drmizotzgy1276[address] [place], [place] [address]Dr. Emelina Navarro EO # 0.3 103/ul Normal 0.0-0.7 [facility] Comment on above: Performed By: #### C BC ####[facility] Rgbkqrmdtl8217[address] [place], [place] [address]Dr. Emelina Navarro Eosinophils/100 WBC (Bld) 2.3 % Normal 0.9-7.0 [facility] Comment on above: Performed By: #### C BC ####[facility] Yywjrgcsfz3746[address] [place], [place] [address]Dr. Emelina Navarro Erythrocyte distribution width (RBC) [Ratio] 17.8 % Critically high 11.0-15.0 [facility] Comment on above: Performed By: #### C BC ####[facility] Udiszozwon2295[address] [place], [place] [address]DrWesley Navarro Hematocrit (Bld) [Volume fraction] 43.3 % Normal 42.0-54.0 [facility] Comment on above: Performed By: #### C BC ####[facility] Unrwgddabo4563[address] [place], [place] [address]Dr. Emelina Navarro Hemoglobin (Bld) [Mass/Vol] 13.6 g/dL Critically low 14.0-18.0 [facility] Comment on above: Performed By: #### C BC ####[facility] Ffcuuzkqlk5476 [place] [address]DrWesley Navarro IG # 0.05 10e3/ul Critically high 0.00-0.03 [facility] Comment on above: Performed By: #### C BC ####[facility] Dvjbbbhldn7932 [place] [address]DrWesley Navarro IG % 0.4 % Normal 0.0-0.5 [facility] Comment on above: Performed By: #### C BC ####[facility] Vlhkhctnse20[address] [place], [place] [address]DrWesley Navarro LYMPH # 1.8 103/ul Normal 1.2-3.8 [facility] Comment on above: Performed By: #### C BC ####[facility] Krbqlvauiz2086 [place] [address]DrWesley Navarro Lymphocytes/100 WBC (Bld) 12.8 % Critically low 20.5-60.0 [facility] Comment on above: Performed By: #### C BC ####[facility] Gfgvuyxsui9478 [place] [address]DrWesley Navarro MANUAL DIFF REQ NO Normal [facility] Comment on above: Performed By: #### C BC ####[facility] Jmspfgiwwy2924 [place] [address]DrWesley Navarro MCH (RBC) [Entitic mass] 28.4 pg Normal 25.9-34.0 [facility] Comment on above: Performed By: #### C BC ####[facility] Liclynouqo7557 [place] [address]DrWesley Navarro MCHC (RBC) [Mass/Vol] 31.4 g/dL Normal 29.9-35.2 [facility] Comment on above: Performed By: #### C BC ####[facility] Hhvufdvfim1574 [place] [address]DrWesley Navarro MCV (RBC) [Entitic vol] 90.4 fL Normal 80.0-94.0 [facility] Comment on above: Performed By: #### C BC ####[facility] Omsrzsdtvi5921 [place] [phone] Navarro MONO # 0.9 103/ul Critically high 0.3-0.8 [facility] Comment on above: Performed By: #### C BC ####[facility] Dfpgptfuiu1261 [place] [phone] Navarro Monocytes/100 WBC (Bld) 6.8 % Normal 1.7-12.0 [facility] Comment on above: Performed By: #### C BC ####[facility] Dstdmzyhdo8432 [place] [address]Dr. Emelina Navarro NEUT # 10.7 103/ul Critically high 1.4-6.5 [facility] Comment on above: Performed By: #### C BC ####[facility] Cvyoxsxbee1032 [place] [address]DrWesley Navarro Neutrophils/100 WBC (Bld) 77.4 % Critically high 43.0-75.0 [facility] Comment on above: Performed By: #### C BC ####[facility] Dvxfdntrxt0896 [place] [phone] Navarro Platelet mean volume (Bld) [Entitic vol] 11.5 fL Normal 9.5-13.5 [facility] Comment on above: Performed By: #### C BC ####[facility] Jlnnaaequh2355 [place] [id number]. Emelina Navarro PLT 114 103/ul Critically low 150-450 [facility] Comment on above: Performed By: #### C BC ####[facility] Qfbuywjzsd4399 [place] [phone] Navarro RBC 4.79 106/ul Normal 4.70-6.10 [facility] Comment on above: Performed By: #### C BC ####[facility] Extagqqebr5454 [place] [phone] Navarro WBC 13.8 103/ul Critically high 4.0-11.0 [facility] Comment on above: Performed By: #### C BC ####[facility] Nnkssxqkbv5550 [place] [address]Dr. Emelina Navarro PROF 14(COMP METB)on 023 Albumin [Mass/Vol] 3.4 g/dL Normal 3.4-5.0 [facility] Comment on above: Performed By: #### C MP ####[facility] Hcaoeuozhf0151 [place] [address]Dr. Emelina Navarro Albumin/Globulin [Mass ratio] 0.9 {ratio} Normal [facility] Comment on above: Performed By: #### C MP ####[facility] Wyhcdcgrep0638 [place] [address]Dr. Emelina Navarro ALP [Catalytic activity/Vol] 130 U/L Critically high 46-116 [facility] Comment on above: Performed By: #### C MP ####[facility] Zvczorsqvn8618 [place] [address]Dr. Emelina Navarro ALT [Catalytic activity/Vol] 24 U/L Normal 16-63 [facility] Comment on above: Performed By: #### C MP ####[facility] Jooojtmkuv0134[address] [place], [place] [address]Dr. Emelina Navarro Anion gap [Moles/Vol] 12.2 mmol/L Normal [facility] Comment on above: Performed By: #### C MP ####[facility] Falkrifurm6785 [place] [address]Dr. Emelina Navarro AST [Catalytic activity/Vol] 22 U/L Normal 15-37 [facility] Comment on above: Performed By: #### C MP ####[facility] Udejdieqdj2991 [place] [address]Dr. Emelina Navarro Bilirubin [Mass/Vol] 1.1 mg/dL Critically high 0.2-1.0 [facility] Comment on above: Performed By: #### C MP ####[facility] Sohkczqhzp7527 [place] [address]Dr. Emelina Navarro Calcium [Mass/Vol] 9.0 mg/dL Normal 8.5-10.1 [facility] Comment on above: Performed By: #### C MP ####[facility] Flejjppide6147 [place] [address]Dr. Emelina Navarro Chloride [Moles/Vol] 99 mmol/L Normal 98-107 [facility] Comment on above: Performed By: #### C MP ####[facility] Qmsqyjnzfy8553 [place] [address]Dr. Emelina Navarro CO2 [Moles/Vol] 30.5 mmol/L Normal 21.0-32.0 [facility] Comment on above: Performed By: #### C MP ####[facility] Gnkmasvbne5962[address] [place], [place] [address]Dr. Emelina Navarro Creatinine [Mass/Vol] 1.58 mg/dL Critically high 0.70-1.30 [facility] Comment on above: Performed By: #### C MP ####[facility] Ulnnnjuikl2020[address] [place], [place] [address]Dr. Emeilna Navarro EGFR-AF [place] 53 mL/min/1.73m2 Critically low >=60 [facility] Comment on above: Performed By: #### C MP ####[facility] Eosrfowkkb87[address] [place], [place] [address]Dr. Awildanitza Ramon EGFR-NON AF [place] 44 mL/min/1.73m2 Critically low >=60 [facility] Comment on above: Performed By: #### C MP ####[facility] Uewvfkwnep569[address] [place], [place] [address]Dr. Emelina Navarro Globulin (S) [Mass/Vol] 3.9 g/dL Normal [facility] Comment on above: Performed By: #### C MP ####[facility] Qkfdxdgtvd2933[address] [place], [place] [address]Dr. Emelina Navarro Glucose [Mass/Vol] 195 mg/dL Critically high 74-106 T [facility] Comment on above: Performed By: #### C MP ####[facility] Iuliywsaid1946[address] [place], [place] [address]Dr. Emelina Navarro Potassium [Moles/Vol] 3.7 mmol/L Normal 3.5-5.1 [facility] Comment on above: Performed By: #### C MP ####[facility] Khgnegjbku2669[address] [place], [place] [address]Dr. Emelina Navarro Protein [Mass/Vol] 7.3 g/dL Normal 6.4-8.2 [facility] Comment on above: Performed By: #### C MP ####[facility] Xbpchzgglz750[address] [place], [place] [address]Dr. Emelina Navarro Sodium [Moles/Vol] 138 mmol/L Normal 136-145 [facility] Comment on above: Performed By: #### C MP ####[facility] Btgixrmabb0112[address] [place], [place] [address]Dr. Emelina Navarro Urea nitrogen [Mass/Vol] 36.0 mg/dL Critically high 7.0-18.0 [facility] Comment on above: Performed By: #### C MP ####[facility] Byseiplost[address] [place], [place] [address]Dr. Emelina Navarro Urea nitrogen/Creatinine [Mass ratio] 22.8 mg/mg Normal [facility] Comment on above: Performed By: #### C MP ####[facility] Zcievioxqe6359[address] [place], [place] [address]Dr. Emelina Navarro CBC AUTO DIFFon 01-06-2023 BASO # 0.0 103/ul Normal 0.0-0.1 [facility] Comment on above: Performed By: #### C BC ####[facility] Tgazfxxvqo025[address] [place], [place] [address]Dr. Emelina Navarro Basophils/100 WBC (Bld) 0.3 % Normal 0.2-2.0 [facility] Comment on above: Performed By: #### C BC ####[facility] Sodjuhziif3452[address] [place], [place] [address]Dr. Emelina Navarro EO # 0.3 103/ul Normal 0.0-0.7 [facility] Comment on above: Performed By: #### C BC ####[facility] Lhfcwfyinb3727[address] [place], [place] [address]Dr. Emelina Navarro Eosinophils/100 WBC (Bld) 2.2 % Normal 0.9-7.0 [facility] Comment on above: Performed By: #### C BC ####[facility] Wcwiueqnzc6702 [place] [address]Dr. Emelina Navarro Erythrocyte distribution width (RBC) [Ratio] 17.9 % Critically high 11.0-15.0 [facility] Comment on above: Performed By: #### C BC ####[facility] Sfusnqujdg2929[address] [place], [place] [address]Dr. Emelina Navarro Hematocrit (Bld) [Volume fraction] 40.9 % Critically low 42.0-54.0 [facility] Comment on above: Performed By: #### C BC ####[facility] Nofsvqnwxt5704[address] [place], [place] [address]Dr. Emelina Navarro Hemoglobin (Bld) [Mass/Vol] 12.9 g/dL Critically low 14.0-18.0 [facility] Comment on above: Performed By: #### C BC ####[facility] Flraamkyep5148[address] [place], [place] [address]Dr. Emelina Navarro IG # 0.04 10e3/ul Critically high 0.00-0.03 [facility] Comment on above: Performed By: #### C BC ####[facility] Sgnyqdlfls[address] [place], [place] [address]Dr. Emelina Navarro IG % 0.3 % Normal 0.0-0.5 [facility] Comment on above: Performed By: #### C BC ####[facility] Bjhkphbjgs9054[address] [place], [place] [address]Dr. Emelina Navarro LYMPH # 2.2 103/ul Normal 1.2-3.8 [facility] Comment on above: Performed By: #### C BC ####[facility] Dqsvvwjkdo5963[address] [place], [place] [address]Dr. Emelina Navarro Lymphocytes/100 WBC (Bld) 17.3 % Critically low 20.5-60.0 [facility] Comment on above: Performed By: #### C BC ####[facility] Usopkuujnk01[address] [place], [place] [address]Dr. Awildanitza Navarro MANUAL DIFF REQ NO Normal [facility] Comment on above: Performed By: #### C BC ####[facility] Txzicvevlo8887 [place] [address]Dr. Emelina Navarro MCH (RBC) [Entitic mass] 28.5 pg Normal 25.9-34.0 [facility] Comment on above: Performed By: #### C BC ####[facility] Pcrzzfqtxi3[address] [place], [place] [address]Dr. Emelina Ramon MCHC (RBC) [Mass/Vol] 31.5 g/dL Normal 29.9-35.2 [facility] Comment on above: Performed By: #### C BC ####[facility] Rmbkkzhcto6[address] [place], [place] [address]Dr. Emelina Ramon MCV (RBC) [Entitic vol] 90.3 fL Normal 80.0-94.0 [facility] Comment on above: Performed By: #### C BC ####[facility] Fvpsuaueiz[address] [place], [place] [address]Dr. Emelina Ramon MONO # 0.9 103/ul Critically high 0.3-0.8 [facility] Comment on above: Performed By: #### C BC ####[facility] [address]inejzs[address] [place], [place] [address]Dr. Awildanitza Navarro Monocytes/100 WBC (Bld) 7.5 % Normal 1.7-12.0 [facility] Comment on above: Performed By: #### C BC ####[facility] Xtuqptrdyn[address] [place], [place] [address]Dr. Awildanitza Ramon NEUT # 9.1 103/ul Critically high 1.4-6.5 [facility] Comment on above: Performed By: #### C BC ####[facility] Dwdzdnegub[address] [place], [place] [address]Dr. Emelina Navarro Neutrophils/100 WBC (Bld) 72.4 % Normal 43.0-75.0 [facility] Comment on above: Performed By: #### C BC ####[facility] Feiohrxmqa[address] [place], [place] [address]Dr. Awildanitza Ramon Platelet mean volume (Bld) [Entitic vol] 11.3 fL Normal 9.5-13.5 [facility] Comment on above: Performed By: #### C BC ####[facility] Lgbdtriduj20[address] [place] [address]Dr. Emelina Navarro PLT 119 103/ul Critically low 150-450 [facility] Comment on above: Performed By: #### C BC ####[facility] Qywgrtheza1077 [place] [address]Dr. Awildanitza Ramon RBC 4.53 106/ul Critically low 4.70-6.10 [facility] Comment on above: Performed By: #### C BC ####[facility] Mzyukkvwsj6434 [place] [address]Dr. Emelina Navarro WBC 12.6 103/ul Critically high 4.0-11.0 [facility] Comment on above: Performed By: #### C BC ####[facility] Vfjsuhramd7315 [place] [address]Dr. Emelina Navarro PROF 14(COMP METB)on 023 Albumin [Mass/Vol] 3.1 g/dL Critically low 3.4-5.0 [facility] Comment on above: Performed By: #### C MP ####[facility] Utvcrmvljf1583 [place] [address]Dr. Emelina Navarro Albumin/Globulin [Mass ratio] 1.0 {ratio} Normal [facility] Comment on above: Performed By: #### C MP ####[facility] Yvlnpfudvb6144 [place] [address]Dr. Emelina Navarro ALP [Catalytic activity/Vol] 114 U/L Normal 46-116 [facility] Comment on above: Performed By: #### C MP ####[facility] Yrqzecqfbs5412 [place] [address]Dr. Emelina Navarro ALT [Catalytic activity/Vol] 23 U/L Normal 16-63 [facility] Comment on above: Performed By: #### C MP ####[facility] Nmtcobspyg4389 [place] [address]Dr. Emelina Navarro Anion gap [Moles/Vol] 13.5 mmol/L Normal [facility] Comment on above: Performed By: #### C MP ####[facility] Gwkyhioqbl2893 [place] [address]Dr. Emelina Navarro AST [Catalytic activity/Vol] 24 U/L Normal 15-37 [facility] Comment on above: Performed By: #### C MP ####[facility] Lfvufwilru5003 [place] [address]Dr. Emelina Ramon Bilirubin [Mass/Vol] 1.0 mg/dL Normal 0.2-1.0 [facility] Comment on above: Performed By: #### C MP ####[facility] Dvuetmfrlw2496 [place] [address]Dr. Emelina Navarro Calcium [Mass/Vol] 8.5 mg/dL Normal 8.5-10.1 [facility] Comment on above: Performed By: #### C MP ####[facility] Enuqaummgt[address] [place], [place] [address]Dr. Emelina Navarro Chloride [Moles/Vol] 102 mmol/L Normal 98-107 [facility] Comment on above: Performed By: #### C MP ####[facility] Tbvwbbolfr8131 [place] [address]Dr. Awildanitza Ramon CO2 [Moles/Vol] 28.2 mmol/L Normal 21.0-32.0 [facility] Comment on above: Performed By: #### C MP ####[facility] Fsqknguuds2864 [place] [address]Dr. Awildanitza Ramon Creatinine [Mass/Vol] 1.42 mg/dL Critically high 0.70-1.30 [facility] Comment on above: Performed By: #### C MP ####[facility] Ybkfyuylnh2342 [place] [address]Dr. Awildanitza Ramon EGFR-AF [place] 60 mL/min/1.73m2 Normal >=60 [facility] Comment on above: Performed By: #### C MP ####[facility] Vrzxdolynq05[address] [place], [place] [address]Dr. Emelina Ramon EGFR-NON AF [place] 50 mL/min/1.73m2 Critically low >=60 [facility] Comment on above: Performed By: #### C MP ####[facility] Xodnawwdwy11[address] [place], [place] [address]Dr. Emelina Navarro Globulin (S) [Mass/Vol] 3.1 g/dL Normal [facility] Comment on above: Performed By: #### C MP ####[facility] Fagjpjpdyf7525[address] [place], [place] [address]Dr. Emelina Ramon Glucose [Mass/Vol] 121 mg/dL Critically high 74-106 T [facility] Comment on above: Performed By: #### C MP ####[facility] Eqchxjkxvz9676[address] [place], [place] [address]Dr. Emelina Navarro Potassium [Moles/Vol] 3.7 mmol/L Normal 3.5-5.1 [facility] Comment on above: Performed By: #### C MP ####[facility] Fogjeejjuo1706[address] [place], [place] [address]Dr. Emelina Ramon Protein [Mass/Vol] 6.2 g/dL Critically low 6.4-8.2 [facility] Comment on above: Performed By: #### C MP ####[facility] Vuoxqryoos8926[address] [place], [place] [address]Dr. Awildanitza Navarro Sodium [Moles/Vol] 140 mmol/L Normal 136-145 [facility] Comment on above: Performed By: #### C MP ####[facility] Yhftfufyfg[address] [place], [place] [address]Dr. Awildanitza Ramon Urea nitrogen [Mass/Vol] 33.0 mg/dL Critically high 7.0-18.0 [facility] Comment on above: Performed By: #### C MP ####[facility] Rfdjpbctaq[address] [place], [place] [address]Dr. Emelina Navarro Urea nitrogen/Creatinine [Mass ratio] 23.2 mg/mg Normal [facility] Comment on above: Performed By: #### C MP ####[facility] Eynqshlpga[address] [place], [place] [address]Dr. Emelina Navarro BNPon 01-05-2023 Natriuretic peptide B (Bld) [Mass/Vol] 7350.0 pg/mL Critically high <=900.0 [facility] Comment on above: Performed By: #### B CONSTRUCTION DIRECTOR, BMP, HSTROPN ####[facility] Obcpaggidv5856 [place] [address]Dr. Emelina Navarro CBC AUTO DIFFon 01-05-2023 BASO # 0.0 103/ul Normal 0.0-0.1 [facility] Comment on above: Performed By: #### C BC ####[facility] Vuxzbzitvd24[address] [place], [place] [address]Dr. Emelina Navarro Basophils/100 WBC (Bld) 0.3 % Normal 0.2-2.0 [facility] Comment on above: Performed By: #### C BC ####[facility] Eszmlezybo[address] [place], [place] [address]Dr. Emelina Navarro EO # 0.3 103/ul Normal 0.0-0.7 [facility] Comment on above: Performed By: #### C BC ####[facility] Zdvaxczdfd50[address] [place], [place] [address]Dr. Emelina Navarro Eosinophils/100 WBC (Bld) 1.9 % Normal 0.9-7.0 [facility] Comment on above: Performed By: #### C BC ####[facility] Lwvxoqzljw[address] [place], [place] [address]Dr. Emelina Navarro Erythrocyte distribution width (RBC) [Ratio] 17.7 % Critically high 11.0-15.0 [facility] Comment on above: Performed By: #### C BC ####[facility] Arqupckehf4[address] [place], [place] [address]Dr. Emelina Navarro Hematocrit (Bld) [Volume fraction] 42.9 % Normal 42.0-54.0 [facility] Comment on above: Performed By: #### C BC ####[facility] Lvvydgtxva[address] [place], [place] [address]Dr. Emelina Navarro Hemoglobin (Bld) [Mass/Vol] 13.8 g/dL Critically low 14.0-18.0 [facility] Comment on above: Performed By: #### C BC ####[facility] Xxhdrfcnro2767 [place] [address]Dr. Awildanitza Ramon IG # 0.07 10e3/ul Critically high 0.00-0.03 [facility] Comment on above: Performed By: #### C BC ####[facility] Ossmdfsxre4714 [place] [address]Dr. Emelina Navarro IG % 0.4 % Normal 0.0-0.5 [facility] Comment on above: Performed By: #### C BC ####[facility] Ygetdfpzgo5814 [place] [address]Dr. Emelina Navarro LYMPH # 1.8 103/ul Normal 1.2-3.8 [facility] Comment on above: Performed By: #### C BC ####[facility] Qpdahnymlt1890 [place] [address]Dr. Emelina Navarro Lymphocytes/100 WBC (Bld) 11.6 % Critically low 20.5-60.0 [facility] Comment on above: Performed By: #### C BC ####[facility] Wpojfxxrvj4534 [place] [address]Dr. Emelina Navarro MANUAL DIFF REQ NO Normal [facility] Comment on above: Performed By: #### C BC ####[facility] Fqeetynhag9863 [place] [address]Dr. Emelina Navarro MCH (RBC) [Entitic mass] 28.5 pg Normal 25.9-34.0 [facility] Comment on above: Performed By: #### C BC ####[facility] Wwqfymxvzo8460 [place] [address]Dr. Awildanitza Navarro MCHC (RBC) [Mass/Vol] 32.2 g/dL Normal 29.9-35.2 [facility] Comment on above: Performed By: #### C BC ####[facility] Blumkexwiu7495 [place] [address]Dr. Emelina Navarro MCV (RBC) [Entitic vol] 88.5 fL Normal 80.0-94.0 [facility] Comment on above: Performed By: #### C BC ####[facility] Yqfgsjfirp8034 [place] [id number]. Emelina Navarro MONO # 1.1 103/ul Critically high 0.3-0.8 [facility] Comment on above: Performed By: #### C BC ####[facility] Uzrhfsvcie4932 [place] [id number]. Emelina Navarro Monocytes/100 WBC (Bld) 6.9 % Normal 1.7-12.0 [facility] Comment on above: Performed By: #### C BC ####[facility] Gnkbrgbkwn0372 [place] [phone]. Emelina Navarro NEUT # 12.4 103/ul Critically high 1.4-6.5 [facility] Comment on above: Performed By: #### C BC ####[facility] Qtfentzert5470 [place] [phone]. Emelina Navarro Neutrophils/100 WBC (Bld) 78.9 % Critically high 43.0-75.0 [facility] Comment on above: Performed By: #### C BC ####[facility] Iumgogdnit8599 [place] [phone]. Emelina Navarro Platelet mean volume (Bld) [Entitic vol] 11.5 fL Normal 9.5-13.5 [facility] Comment on above: Performed By: #### C BC ####[facility] Aawudsoobq2451 [place] [phone]. Emelina Navarro PLT 142 103/ul Critically low 150-450 [facility] Comment on above: Performed By: #### C BC ####[facility] Uggkhcikjr2220 [place] [phone]. Emelina Navarro RBC 4.85 106/ul Normal 4.70-6.10 [facility] Comment on above: Performed By: #### C BC ####[facility] Zitlpirjry6933 [place] [phone]. Emelina Ramon WBC 15.8 103/ul Critically high 4.0-11.0 [facility] Comment on above: Performed By: #### C BC ####[facility] Cfldduwthq4948 [place] [phone]. Emelina Navarro CULTURE BLOODon 01-05-2023 Microscopic examination of blood, culture Culture Observations: NO GROWTH AT 5 DAYS. Normal [facility] Comment on above: Performed By: #### B LDCX2 ####[facility] Ihznqghmiq6397 [place] [phone]. Emelina Navarro Microscopic examination of blood, culture Culture Observations: NO GROWTH AT 5 DAYS. Normal [facility] Comment on above: Performed By: #### B LDCX1 ####[facility] Fhaazmtyad5351 [place] [address]Dr. Emelina Navarro Covid-19 PCR (CVDTB)on 12-20 SARS-CoV-2 (COVID-19) RNA RADHA+probe Ql (Unsp spec) Not detected Normal NOT DETECTED [facility] Comment on above: Result Comment: When [...] for this test is supported by the Access Rn of Health and Human Service's declaration that [...] be used). Performed By: #### C VDTBH ####[facility] Zkxeanwcpd5368 [place] [phone]. Emelina Navarro DIGOXINon 01-05-2023 DIG 0.8 ng/mL Critically low 0.9-2.0 [facility] Comment on above: Performed By: #### D IG ####[facility] Ypjvgehzib[address] [place], [place] [address]Dr. Emelina Navarro PROF CHEM 8 (BAS METB)on Anion gap [Moles/Vol] 12.7 mmol/L Normal [facility] Comment on above: Performed By: #### B CONSTRUCTION DIRECTOR, BMP, HSTROPN ####[facility] Ydvtygsfkh37[address] [place], [place] [address]Dr. Emelina Navarro Calcium [Mass/Vol] 8.8 mg/dL Normal 8.5-10.1 [facility] Comment on above: Performed By: #### B CONSTRUCTION DIRECTOR, BMP, HSTROPN ####[facility] Bwyhpkhvaa53[address] [place], [place] [address]Dr. Emelina Navarro Chloride [Moles/Vol] 99 mmol/L Normal 98-107 [facility] Comment on above: Performed By: #### B CONSTRUCTION DIRECTOR, BMP, HSTROPN ####[facility] Bpzdgexxva418[address] [place], [place] [address]Dr. Emelina Navarro CO2 [Moles/Vol] 28.2 mmol/L Normal 21.0-32.0 [facility] Comment on above: Performed By: #### B CONSTRUCTION DIRECTOR, BMP, HSTROPN ####[facility] Jokmealtic[address] [place], [place] [address]Dr. Emelina Navarro Creatinine [Mass/Vol] 1.64 mg/dL Critically high 0.70-1.30 [facility] Comment on above: Performed By: #### B CONSTRUCTION DIRECTOR, BMP, HSTROPN ####[facility] Jxkuyiiikk7[address] [place], [place] [address]Dr. Emelina Navarro EGFR-AF [place] 51 mL/min/1.73m2 Critically low >=60 [facility] Comment on above: Performed By: #### B CONSTRUCTION DIRECTOR, BMP, HSTROPN ####[facility] Cphkypjzhb[address] [place], [place] [address]Dr. Emelina Navarro EGFR-NON AF [place] 42 mL/min/1.73m2 Critically low >=60 [facility] Comment on above: Performed By: #### B CONSTRUCTION DIRECTOR, BMP, HSTROPN ####[facility] Qexgdxfdkx7974 [place] [address]Dr. Awildanitza Navarro Glucose [Mass/Vol] 203 mg/dL Critically high 74-106 [facility] Comment on above: Performed By: #### B CONSTRUCTION DIRECTOR, BMP, HSTROPN ####[facility] Tjxdbafimb6171 [place] [address]Dr. Emelina Navarro Potassium [Moles/Vol] 3.9 mmol/L Normal 3.5-5.1 [facility] Comment on above: Performed By: #### B CONSTRUCTION DIRECTOR, BMP, HSTROPN ####[facility] Akigrqhsdf7568 [place] [address]Dr. Awildanitza Navarro Sodium [Moles/Vol] 136 mmol/L Normal 136-145 [facility] Comment on above: Performed By: #### B CONSTRUCTION DIRECTOR, BMP, HSTROPN ####[facility] Uawnqpkkwy0971 [place] [address]Dr. Emelina Navarro Urea nitrogen [Mass/Vol] 32.0 mg/dL Critically high 7.0-18.0 [facility] Comment on above: Performed By: #### B CONSTRUCTION DIRECTOR, BMP, HSTROPN ####[facility] Urpsbrhqar[address] [place], [place] [address]Dr. Emelina Navarro Urea nitrogen/Creatinine [Mass ratio] 19.5 mg/mg Normal [facility] Comment on above: Performed By: #### B CONSTRUCTION DIRECTOR, BMP, HSTROPN ####[facility] Ubupgxbvrb[address] [place], [place] [address]Dr. Emelina Navarro PROTIMEon 01-05-2023 INR Coag (PPP) [Relative time] 2.53 {INR} Normal [facility] Comment on above: Performed By: #### P T, PTT ####[facility] Meqkrwsbwm7186[address] [place], [place] [address]Dr. Emelina Navarro INR GUIDELINES SEE BELOW Normal [facility] Comment on above: Result Comment: WENDY RED INR: 2.0 - 3.0 CONDITIONS NOT LISTED BELOW 2.5 - 3.5 FOR PROSTHETIC HEART VALVE REPLACEMENT 2.5 - 3.5 RECURRENT THROMBOSIS Performed By: #### P T, PTT ####[facility] Oxkahnevno9524 [place] [address]Dr. Emelina Navarro PT Coag (PPP) [Time] 25.4 s Critically high 9.0-11.6 [facility] Comment on above: Performed By: #### P T, PTT ####[facility] Cgoimxrbfi2495 [place] [address]Dr. Emelina Navarro PTTon 01-05-2023 aPTT Coag (Bld) [Time] 37.7 s Critically high 22.3-36.2 [facility] Comment on above: Performed By: #### P T, PTT ####[facility] Rvfjfariqc82[address] [place], [place] [address]Dr. Emelina Navarro TROPONIN, HIGH SENSITIVITYon 01-05-2023 HSTROP 52.4 pg/mL Normal 4.0-76.1 [facility] Comment on above: Result Comment: CUT- OFF POINTS HAVE BEEN ESTABLISHED BASED ON THE FOURTH UNIVERSAL DEFINITIONS OF MYOCARDIALINFARCTION. THE UPPER REFERENCE LIMIT (URL) OF TROPONIN, DEFINED THE 99TH PERCENTILE OFcTnI DISTRIBUTION IN A REFERENCE POPULATION, HAS BEEN CONFIRMED THE DECISION THRESHOLDFOR RI DIAGNOSIS. Performed By: #### B CONSTRUCTION DIRECTOR, BMP, HSTROPN ####[facility] Vutvqxcdnk4767[address] [place], [place] [address]Dr. Emelina Navarro XR CHEST 1 Von 01-05-2023 XR CHEST 1 V Normal [facility] BNPon 01-02-2023 Natriuretic peptide B (Bld) [Mass/Vol] 5653.0 pg/mL Critically high <=900.0 [facility] Comment on above: Performed By: #### B CONSTRUCTION DIRECTOR, BMP ####[facility] Bkyltwzhch[address] [place], [place] [address]Dr. Emelina Navarro CBC AUTO DIFFon 01-02-2023 BASO # 0.0 103/ul Normal 0.0-0.1 [facility] Comment on above: Performed By: #### C BC ####[facility] Sdowmgmjqs[address] [place], [place] [address]Dr. Emelina Navarro Basophils/100 WBC (Bld) 0.2 % Normal 0.2-2.0 [facility] Comment on above: Performed By: #### C BC ####[facility] Sygfgxuuys67[address] [place], [place] [address]DrWesley Navarro EO # 0.3 103/ul Normal 0.0-0.7 [facility] Comment on above: Performed By: #### C BC ####[facility] Vjehygzviw7144[address] [place], [place] [address]DrWesley Navarro Eosinophils/100 WBC (Bld) 2.1 % Normal 0.9-7.0 [facility] Comment on above: Performed By: #### C BC ####[facility] Xmkafqfhxq6783[address] [place], [place] [address]DrWesley Navarro Erythrocyte distribution width (RBC) [Ratio] 17.9 % Critically high 11.0-15.0 [facility] Comment on above: Performed By: #### C BC ####[facility] Sqliwampog3759[address] [place], [place] [address]DrWesley Navarro Hematocrit (Bld) [Volume fraction] 42.1 % Normal 42.0-54.0 [facility] Comment on above: Performed By: #### C BC ####[facility] Kwcxxsqcnx70[address] [place], [place] [address]DrWesley Navarro Hemoglobin (Bld) [Mass/Vol] 13.8 g/dL Critically low 14.0-18.0 [facility] Comment on above: Performed By: #### C BC ####[facility] [address]nsdoxkfl06[address] [place], [place] [address]DrWesley Navarro IG # 0.06 10e3/ul Critically high 0.00-0.03 [facility] Comment on above: Performed By: #### C BC ####[facility] Cepctvjawj15[address] [place], [place] [address]DrWesley Navarro IG % 0.5 % Normal 0.0-0.5 [facility] Comment on above: Performed By: #### C BC ####[facility] Jamurqyakr[address] [place], [place] [address]DrWesley Navarro LYMPH # 1.7 103/ul Normal 1.2-3.8 [facility] Comment on above: Performed By: #### C BC ####[facility] Ujcerpncwm5211 [place] [address]DrWesley Navarro Lymphocytes/100 WBC (Bld) 13.1 % Critically low 20.5-60.0 [facility] Comment on above: Performed By: #### C BC ####[facility] Rjlzzeufes[address] [place], [place] [address]DrWesley Navarro MANUAL DIFF REQ NO Normal [facility] Comment on above: Performed By: #### C BC ####[facility] Lkdgreuisn0999 [place] [address]DrWesley Navarro MCH (RBC) [Entitic mass] 28.9 pg Normal 25.9-34.0 [facility] Comment on above: Performed By: #### C BC ####[facility] Nlhflaftwz67[address] [place], [place] [address]DrWesley Navarro MCHC (RBC) [Mass/Vol] 32.8 g/dL Normal 29.9-35.2 [facility] Comment on above: Performed By: #### C BC ####[facility] Xqbbisdrlz3975[address] [place], [place] [address]DrWesley Navarro MCV (RBC) [Entitic vol] 88.3 fL Normal 80.0-94.0 [facility] Comment on above: Performed By: #### C BC ####[facility] Rmckzrwrwe60[address] [place], [place] [address]DrWesley Navarro MONO # 0.7 103/ul Normal 0.3-0.8 [facility] Comment on above: Performed By: #### C BC ####[facility] Rijvzarxfj[address] [place], [place] [address]DrWesley Navarro Monocytes/100 WBC (Bld) 5.3 % Normal 1.7-12.0 [facility] Comment on above: Performed By: #### C BC ####[facility] Dnjuutlcnq58[address] [place], [place] [address]DrWesley Navarro NEUT # 10.1 103/ul Critically high 1.4-6.5 [facility] Comment on above: Performed By: #### C BC ####[facility] Lbclkxsopj2051 [place] [address]DrWesley Navarro Neutrophils/100 WBC (Bld) 78.8 % Critically high 43.0-75.0 [facility] Comment on above: Performed By: #### C BC ####[facility] Tigkskkxsg9738 [place] [address]DrWesley Navarro Platelet mean volume (Bld) [Entitic vol] 10.8 fL Normal 9.5-13.5 [facility] Comment on above: Performed By: #### C BC ####[facility] Pjtymtvnpw32[address] [place], [place] [address]DrWesley Navarro PLT 143 103/ul Critically low 150-450 [facility] Comment on above: Performed By: #### C BC ####[facility] Moionvmkve76[address] [place], [place] [address]DrWesley Navarro RBC 4.77 106/ul Normal 4.70-6.10 [facility] Comment on above: Performed By: #### C BC ####[facility] Qscwrypvec12[address] [place], [place] [address]DrWesley Navarro WBC 12.8 103/ul Critically high 4.0-11.0 [facility] Comment on above: Performed By: #### C BC ####[facility] Sfldxvwkcm03[address] [place], [place] [address]DrWesley Navarro PROF CHEM 8 (BAS METB)on Anion gap [Moles/Vol] 12.2 mmol/L Normal [facility] Comment on above: Performed By: #### B CONSTRUCTION DIRECTOR, BMP ####[facility] Xulddwfgjt50[address] [place], [place] [address]DrWesley Navarro Calcium [Mass/Vol] 8.6 mg/dL Normal 8.5-10.1 [facility] Comment on above: Performed By: #### B CONSTRUCTION DIRECTOR, BMP ####[facility] Iwfjifxmag9874 [place] [address]Dr. Emelina Navarro Chloride [Moles/Vol] 102 mmol/L Normal 98-107 [facility] Comment on above: Performed By: #### B CONSTRUCTION DIRECTOR, BMP ####[facility] Demtyosinn52[address] [place], [place] [address]Dr. Emelina Navarro CO2 [Moles/Vol] 26.4 mmol/L Normal 21.0-32.0 [facility] Comment on above: Performed By: #### B CONSTRUCTION DIRECTOR, BMP ####[facility] Azwrbrhvcy05[address] [place], [place] [address]Dr. Emelina Navarro Creatinine [Mass/Vol] 1.56 mg/dL Critically high 0.70-1.30 [facility] Comment on above: Performed By: #### B CONSTRUCTION DIRECTOR, BMP ####[facility] Fucbbltwcm[address] [place], [place] [address]Dr. Emelina Navarro EGFR-AF [place] 54 mL/min/1.73m2 Critically low >=60 [facility] Comment on above: Performed By: #### B CONSTRUCTION DIRECTOR, BMP ####[facility] Uhnawkdtzn25[address] [place], [place] [address]Dr. Emelina Navarro EGFR-NON AF [place] 44 mL/min/1.73m2 Critically low >=60 [facility] Comment on above: Performed By: #### B CONSTRUCTION DIRECTOR, BMP ####[facility] Oxmgyjxxyy[address] [place], [place] [address]Dr. Emelina Navarro Glucose [Mass/Vol] 211 mg/dL Critically high 74-106 [facility] Comment on above: Performed By: #### B CONSTRUCTION DIRECTOR, BMP ####[facility] Srurlabdqm[address] [place], [place] [address]Dr. Emelina Navarro Potassium [Moles/Vol] 3.6 mmol/L Normal 3.5-5.1 [facility] Comment on above: Performed By: #### B CONSTRUCTION DIRECTOR, BMP ####[facility] Iptodewuqs[address] [place], [place] [address]Dr. Emelina Navarro Sodium [Moles/Vol] 137 mmol/L Normal 136-145 [facility] Comment on above: Performed By: #### B CONSTRUCTION DIRECTOR, BMP ####[facility] Iqunpdnpws[address] [place] [id number]. Awildanitza Navarro Urea nitrogen [Mass/Vol] 42.0 mg/dL Critically high 7.0-18.0 [facility] Comment on above: Performed By: #### B CONSTRUCTION DIRECTOR, BMP ####[facility] Wkjj[address]wv[address] [place] [id number]. Emelina Navarro Urea nitrogen/Creatinine [Mass ratio] 26.9 mg/mg Normal [facility] Comment on above: Performed By: #### B CONSTRUCTION DIRECTOR, BMP ####[facility] Lciwhieeiy[address] [place], [place] [address]Dr. Emelina Navarro Anion gap [Moles/Vol] 12.3 mmol/L Normal [facility] Comment on above: Performed By: #### B MP ####[facility] Owwlhyucis[address] [place], [place] [address]Dr. Emelina Navarro Calcium [Mass/Vol] 8.4 mg/dL Critically low 8.5-10.1 [facility] Comment on above: Performed By: #### B MP ####[facility] Umcoevmnxx[address] [place], [place] [address]Dr. Emelina Navarro Chloride [Moles/Vol] 101 mmol/L Normal 98-107 [facility] Comment on above: Performed By: #### B MP ####[facility] Kqtbvcapny[address] [place], [place] [address]Dr. Emelina Navarro CO2 [Moles/Vol] 27.4 mmol/L Normal 21.0-32.0 [facility] Comment on above: Performed By: #### B MP ####[facility] Mwrglxlmbc[address] [place], [place] [address]Dr. Emelina Navarro Creatinine [Mass/Vol] 1.54 mg/dL Critically high 0.70-1.30 [facility] Comment on above: Performed By: #### B MP ####[facility] Wnukvvevqk[address] [place], [place] [address]Dr. Emelina Navarro EGFR-AF EAST [place] 55 mL/min/1.73m2 Critically low >=60 [facility] Comment on above: Performed By: #### B MP ####[facility] [address]bwzheddyt[address] [place] [address]Dr. Emelina Navarro EGFR-NON AF [place] 45 mL/min/1.73m2 Critically low >=60 [facility] Comment on above: Performed By: #### B MP ####[facility] Mxmbugqthq[address] [place] [address]Dr. Emelina Navarro Glucose [Mass/Vol] 115 mg/dL Critically high 74-106 [facility] Comment on above: Performed By: #### B MP ####[facility] Kzuiiyzbbc65[address] [place] [address]Dr. Emelina Navarro Potassium [Moles/Vol] 3.7 mmol/L Normal 3.5-5.1 [facility] Comment on above: Performed By: #### B MP ####[facility] Tqjmgppdqx[address] [place], [place] [address]Dr. Emelina Navarro Sodium [Moles/Vol] 137 mmol/L Normal 136-145 [facility] Comment on above: Performed By: #### B MP ####[facility] Lfowemielu[address] [place], [place] [address]Dr. Emelina Navarro Urea nitrogen [Mass/Vol] 40.0 mg/dL Critically high 7.0-18.0 [facility] Comment on above: Performed By: #### B MP ####[facility] Hjssdfjzbk[address] [place], [place] [address]Dr. Emelina Navarro Urea nitrogen/Creatinine [Mass ratio] 26.0 mg/mg Normal [facility] Comment on above: Performed By: #### B MP ####[facility] Edwbztlkft[address] [place], [place] [address]Dr. Emelina Navarro XR CHEST 1 Von 01-02-2023 XR CHEST 1 V Normal [facility] BNPon 12-26-2022 Natriuretic peptide B (Bld) [Mass/Vol] 9102.0 pg/mL Critically high <=900.0 [facility] Comment on above: Performed By: #### B CONSTRUCTION DIRECTOR ####[facility] Cxwwgghrkv[address] [place], [place] [address]Dr. Emelina Navarro PROF CHEM 8 (BAS METB)on Anion gap [Moles/Vol] 14.4 mmol/L Normal [facility] Comment on above: Performed By: #### B MP ####[facility] Prpojvoheu[address] [place] [address]Dr. Emelina Navarro Calcium [Mass/Vol] 8.6 mg/dL Normal 8.5-10.1 [facility] Comment on above: Performed By: #### B MP ####[facility] Jtxffaoado44[address] [place] [address]Dr. Emelina Navarro Chloride [Moles/Vol] 101 mmol/L Normal 98-107 [facility] Comment on above: Performed By: #### B MP ####[facility] Trvfzyyzdr30[address] [place] [address]Dr. Emelina Navarro CO2 [Moles/Vol] 27.2 mmol/L Normal 21.0-32.0 [facility] Comment on above: Performed By: #### B MP ####[facility] Bwqgdbsbpc35[address] [place] [address]Dr. Emelina Navarro Creatinine [Mass/Vol] 1.69 mg/dL Critically high 0.70-1.30 [facility] Comment on above: Performed By: #### B MP ####[facility] Yvefcnolvf38[address] [place] [address]Dr. Emelina Navarro EGFR-AF [place] 49 mL/min/1.73m2 Critically low >=60 [facility] Comment on above: Performed By: #### B MP ####[facility] Foztlwkjci[address] [place] [address]Dr. Emelina Navarro EGFR-NON AF E[place] 41 mL/min/1.73m2 Critically low >=60 [facility] Comment on above: Performed By: #### B MP ####[facility] Grxxdwgowk[address] [place] [address]Dr. Emelina Navarro Glucose [Mass/Vol] 163 mg/dL Critically high 74-106 [facility] Comment on above: Performed By: #### B MP ####[facility] [address] [place], [place] [address]Oy. Emelina Navarro Potassium [Moles/Vol] 3.6 mmol/L Normal 3.5-5.1 [facility] Comment on above: Performed By: #### B MP ####[facility] [address] [place], [place] [address]Gw. Emelina Navarro Sodium [Moles/Vol] 139 mmol/L Normal 136-145 [facility] Comment on above: Performed By: #### B MP ####[facility] Erlodqxgfk6751 [place], [place] [address]Qj. Emelina Navarro Urea nitrogen [Mass/Vol] 36.0 mg/dL Critically high 7.0-18.0 [facility] Comment on above: Performed By: #### B MP ####[facility] Luzcuwpfpb[address] [place], [place] [address]Cv. Emelina Navarro Urea nitrogen/Creatinine [Mass ratio] 21.3 mg/mg Normal [facility] Comment on above: Performed By: #### B MP ####[facility] F[address]im22[address] [place], [place] [address]Lh. Emelina Navarro Albumin [Mass/volume] in Ser um or PlasmaOrdered By: Ethan Cummings on 12-02-2022 Albumin [Mass/Vol] 3.9 g/dL 3.2-5.5 [facility] Basophils Auto (Bld) [#/Vol] Ordered By: Ethan Cummings on 12-02-2022 Basophils (Bld) [#/Vol] 0.1 10*3/uL 0.0-0.2 [facility] Basophils/100 WBC Auto (Bld) Ordered By: Ethan Cummings on 12-02-2022 Basophils/100 WBC (Bld) 0.7 % . [facility] CT biopsyOrdered By: Ethan Cummings on 12-02-2022 Transferrin [Mass/Vol] 240 mg/dL 180-380 [facility] Creatinine and Glomerular fi ltration rate.predicted panel (S/P/Bld)Ordered By: Ethan Cummings on 12-02-2022 Creatinine [Mass/Vol] 1.58 mg/dL 0.64-1.27 [facility] Eosinophils Auto (Bld) [#/Vo l]Ordered By: Ethan Cummings on 12-02-2022 Eosinophils (Bld) [#/Vol] 0.4 10*3/uL 0.0-0.45 [facility] Eosinophils/100 WBC Auto (Bl d)Ordered By: Ethan Cummings on 12-02-2022 Eosinophils/100 WBC (Bld) 3.5 % . [facility] Erythrocyte distribution wid th Auto (RBC) [Ratio]Ordered By: Ethan Cummings on 12-02-2022 Erythrocyte distribution width (RBC) [Ratio] 19.6 % 12.0-14.8 [facility] Estimated glomerular filtrat ion rate (GFR) non- AmericanOrdered By: Ethan Cummings on 12-02-2022 GFR/1.73 sq M.predicted among non-blacks MDRD (S/P/Bld) [Vol rate/Area] 44 mL/Min [facility] Ferritin [Mass/volume] in Se rum or PlasmaOrdered By: Ethan Cummings on 12-02-2022 Ferritin [Mass/Vol] 85.7 ng/mL 23.9-336.2 [facility] Folate [Mass/volume] in Seru m or PlasmaOrdered By: Ethan Cummings on 12-02-2022 Folate [Mass/Vol] ng/mL >5.9 [facility] Comment on above: Folate reference ran ge: >5.9 ng/mlThe WHO technical consultation on folate and vitamin u80bazsanptnswf has determined that folate concentrations lessthan 4 ng/ml are considered deficient. Globulin Calc (S) [Mass/Vol] Ordered By: Ethan Cummings on 12-02-2022 Globulin (S) [Mass/Vol] 3.7 g/dL [facility] Hematocrit Auto (Bld) [Volum e fraction]Ordered By: Ethan Cummings on 12-02-2022 Hematocrit (Bld) [Volume fraction] 47.4 % 38.8-50.0 [facility] Hemoglobin [Mass/volume] in BloodOrdered By: Ethan Cummings on 01-14-2023 Hemoglobin (Bld) [Mass/Vol] 15.3 g/dL 13.0-17.0 [facility] Iron [Mass/volume] in Serum or PlasmaOrdered By: Ethan Cummings on 12-02-2022 Iron [Mass/Vol] 96 ug/dL 40-160 [facility] Iron binding capacity [Mass/ volume] in Serum or PlasmaOrdered By: Ethan Cummings on 12-02-2022 Iron binding capacity [Mass/Vol] 336 ug/dL 255-450 [facility] Iron saturation [Mass Fracti on] in Serum or PlasmaOrdered By: Ethan Cummings on 12-02-2022 Iron saturation [Mass fraction] 28.6 % 20-50 [facility] Laboratory - Chemistry and C hemistry - challengeOrdered By: Ethan Cummings on 12-02-2022 Cobalamin (Vitamin B12) [Mass/Vol] 1521 pg/mL 180-914 [facility] Leukocytes [#/volume] correc morris for nucleated erythrocytes in Blood by Automated counOrdered By: Ethan Cummings on 12-02-2022 WBC corrected for nucl RBC Auto (Bld) [#/Vol] 11.8 10*3/uL 4.1-10.5 [facility] Lymphocytes Auto (Bld) [#/Vo l]Ordered By: Ethan Cummings on 12-02-2022 Lymphocytes (Bld) [#/Vol] 2.4 10*3/uL 1.00-4.8 [facility] Lymphocytes/100 WBC Auto (Bl d)Ordered By: Ethan Cummings on 12-02-2022 Lymphocytes/100 WBC (Bld) 20.5 % . [facility] MCH Auto (RBC) [Entitic mass ]Ordered By: Ethan Cummings on 12-02-2022 MCH (RBC) [Entitic mass] 28.3 pg 27.5-35.2 [facility] MCHC Auto (RBC) [Mass/Vol]Or dered By: Ethan Cummings on 12-02-2022 MCHC (RBC) [Mass/Vol] 32.3 g/dL 32.5-35.6 [facility] MCV Auto (RBC) [Entitic vol] Ordered By: Ethan Cummings on 12-02-2022 MCV (RBC) [Entitic vol] 87.5 fL 83.5-101 [facility] Monocytes Auto (Bld) [#/Vol] Ordered By: Ethan Cummings on 12-02-2022 Monocytes (Bld) [#/Vol] 1.0 10*3/uL 0.0-0.8 [facility] Monocytes/100 WBC Auto (Bld) Ordered By: Ethan Cummings on 12-02-2022 Monocytes/100 WBC (Bld) 8.2 % . [facility] Neutrophils Auto (Bld) [#/Vo l]Ordered By: Ethan Cummings on 12-02-2022 Neutrophils (Bld) [#/Vol] 7.9 10*3/uL 1.8-7.7 [facility] Neutrophils/100 WBC Auto (Bl d)Ordered By: Ethan Cummings on 12-02-2022 Neutrophils/100 WBC (Bld) 67.1 % . [facility] No Panel InformationOrdered By: Ethan Cummings on 12-02-2022 Estimated GFR () 53 mL/Min [facility] Comment on above: GFR estimated refere nce range: According to KDOQI guidelines, <60 ml/min/1.73m2 is sufficient to diagnose a patient with chronic kidney disease. Pharmacy Creatinine Clearance (Chem 53.88 [facility] Nucleated erythrocytes [Pres ence] in Blood by Automated countOrdered By: Ethan Cummings on 12-02-2022 Nucleated RBC Auto Ql (Bld) 0.1 /100{WBC} 0-0.5 [facility] Platelet mean volume Auto (B ld) [Entitic vol]Ordered By: Ethan Cummings on 12-02-2022 Platelet mean volume (Bld) [Entitic vol] 8.5 fL 6.6-10.1 [facility] Platelets Auto (Bld) [#/Vol] Ordered By: Ethan Cummings on 12-02-2022 Platelets (Bld) [#/Vol] 214 10*3/uL 150-450 [facility] Protein [Mass/volume] in Ser um or PlasmaOrdered By: Ethan Cummings on 12-02-2022 Protein [Mass/Vol] 7.6 g/dL 6.1-7.9 [facility] RBC Auto (Bld) [#/Vol]Ordere d By: Ethan Cummings on 12-02-2022 RBC (Bld) [#/Vol] 5.41 10*6/uL 3.90-5.60 [facility] Serum or plasma alanine valle otransferase measurement without P-5'-P (enzymatic activiOrdered By: Ethan Cummings on 12-02-2022 ALT No additional P-5'-P [Catalytic activity/Vol] 19 U/L 10-60 [facility] Serum or plasma albumin/glob ulin mass ratioOrdered By: Ethan Cummings on 12-02-2022 Albumin/Globulin [Mass ratio] 1.1 {ratio} [facility] Serum or plasma alkaline tosin sphatase measurement (enzymatic activity/volume)Ordered By: Ethan Cummings on 12-02-2022 ALP [Catalytic activity/Vol] 101 U/L 32-92 [facility] Serum or plasma anion gap de terminationOrdered By: Ethan Cummings on 12-02-2022 Anion gap [Moles/Vol] 13.2 mmol/L 6.0-15.0 [facility] Serum or plasma aspartate am inotransferase measurement (enzymatic activity/volume)Ordered By: Ethan Cummings on 12-02-2022 AST [Catalytic activity/Vol] 32 U/L 10-42 [facility] Serum or plasma calcium mike urement (mass/volume)Ordered By: Ethan Cummings on 12-02-2022 Calcium [Mass/Vol] 9.5 mg/dL 8.2-10.2 [facility] Serum or plasma chloride arash surement (moles/volume)Ordered By: Ethan Cummings on 12-02-2022 Chloride [Moles/Vol] 101 mmol/L 95-114 [facility] Serum or plasma glucose mike urement (mass/volume)Ordered By: Ethan Cummings on 12-02-2022 Glucose [Mass/Vol] 150 mg/dL 70-100 [facility] Comment on above: ADA recommended refe rence rangeRandom Glucose Reference Range is dependent on time and content of last meal. Glucose of more than 200 mg/dL in a nonstressed, ambulatory subject supports the diagnosis of Diabetes Mellitus. Serum or plasma potassium me asurement (moles/volume)Ordered By: Ethan Cummings on 12-02-2022 Potassium [Moles/Vol] 4.3 mmol/L 3.5-5.1 [facility] Serum or plasma sodium measu rement (moles/volume)Ordered By: Ethan Cummings on 12-02-2022 Sodium [Moles/Vol] 140 mmol/L 136-146 [facility] Serum or plasma total biliru bin measurement (mass/volume)Ordered By: Ethan Cummings on 12-02-2022 Bilirubin [Mass/Vol] 1.5 mg/dL 0.3-1.2 [facility] Comment on above: Samples from patient s who have taken Naproxen have shown spurious elevation in Total Bilirubin levels. A metabolite of Naproxen, O-desmethylnaproxen, has been shown to interfere with the Jesi-Ananya method for measuring Total Bilirubin. Serum or plasma total carbon dioxide measurement (moles/volume)Ordered By: Ethan Cummings on 12-02-2022 CO2 [Moles/Vol] 30.1 mmol/L 22.0-30.0 [facility] [place] Serum or plasma urea nitroge n measurement (mass/volume)Ordered By: Ethan Cummings on 12-02-2022 Urea nitrogen [Mass/Vol] 22 mg/dL 9 [facility] WBC Auto (Bld) [#/Vol]Ordere d By: Ethan Cummings on 12-02-2022 WBC (Bld) [#/Vol] 11.8 10*3/uL 4.1-10.5 [facility] PROF CHEM 8 (BAS METB)on Anion gap [Moles/Vol] 12.6 mmol/L Normal [facility] Comment on above: Performed By: #### B MP ####[facility] [address] [place] [address]Dr. Emelina Navarro Calcium [Mass/Vol] 9.0 mg/dL Normal 8.5-10.1 [facility] Comment on above: Performed By: #### B MP ####[facility] [address] [place], [place] [address]Dr. Emelina Navarro Chloride [Moles/Vol] 99 mmol/L Normal 98-107 [facility] Comment on above: Performed By: #### B MP ####[facility] [address]iz[address] [place], [place] [address]Dr. Emelina Navarro CO2 [Moles/Vol] 33.2 mmol/L Critically high 21.0-32.0 [facility] Comment on above: Performed By: #### B MP ####[facility] [address]ujl[address] [place], [place] [address]Dr. Emelina Navarro Creatinine [Mass/Vol] 1.75 mg/dL Critically high 0.70-1.30 [facility] Comment on above: Performed By: #### B MP ####[facility] Isxce[address]eguw[address] [place], [place] [address]Dr. Emelina Navarro EGFR-AF [place] 47 mL/min/1.73m2 Critically low >=60 [facility] Comment on above: Performed By: #### B MP ####[facility] Wrwsedmzxc[address] [place], [place] [address]Dr. Emelina Navarro EGFR-NON AF [place] 39 mL/min/1.73m2 Critically low >=60 [facility] Comment on above: Performed By: #### B MP ####[facility] Scntsoawpw[address] [place], [place] [address]Dr. Emelina Navarro Glucose [Mass/Vol] 132 mg/dL Critically high 74-106 [facility] Comment on above: Performed By: #### B MP ####[facility] Mmerywhfri[address] [place], [place] [address]Dr. Emelina Navarro Potassium [Moles/Vol] 3.8 mmol/L Normal 3.5-5.1 [facility] Comment on above: Performed By: #### B MP ####[facility] Yukokueden[address] [place], [place] [address]Dr. Emelina Navarro Sodium [Moles/Vol] 141 mmol/L Normal 136-145 [facility] Comment on above: Performed By: #### B MP ####[facility] Jytvolpsee94[address] [place] [id number]. Emelina Navarro Urea nitrogen [Mass/Vol] 22.0 mg/dL Critically high 7.0-18.0 [facility] Comment on above: Performed By: #### B MP ####[facility] Ootsyidkui[address] [place] [id number] Navarro Urea nitrogen/Creatinine [Mass ratio] 12.6 mg/mg Normal [facility] Comment on above: Performed By: #### B MP ####[facility] Ikztpqltvs[address] [place], [place] [address]Dr. Emelina Navarro A1C HEMOGLOBINon 11-07-2022 HbA1c (Bld) [Mass fraction] 7.4 % [facility] [employer] Other Glucose - FINGER STICKon Glucose [Mass/Vol] 109 mg/dL [employer] Other HbA1c (Bld) [Mass fraction]o n 11-07-2022 A1C HEMOGLOBIN [facility] [employer] Other PROF CHEM 8 (BAS METB)on Anion gap [Moles/Vol] 12.2 mmol/L Normal [facility] Comment on above: Performed By: #### B MP ####[facility] Shvhfkzyqy7[address] [place] [id number] Navarro Calcium [Mass/Vol] 8.7 mg/dL Normal 8.5-10.1 [facility] Comment on above: Performed By: #### B MP ####[facility] [address]oyhs[address] [place] [address]DrWesley Navarro Chloride [Moles/Vol] 101 mmol/L Normal 98-107 [facility] Comment on above: Performed By: #### B MP ####[facility] Ckbifcwvpm4435 [place] [address]DrWesley Navarro CO2 [Moles/Vol] 29.9 mmol/L Normal 21.0-32.0 [facility] Comment on above: Performed By: #### B MP ####[facility] Lsklwbbjby23[address] [place] [address]Dr. Awildanitza Ramon Creatinine [Mass/Vol] 1.78 mg/dL Critically high 0.70-1.30 [facility] Comment on above: Performed By: #### B MP ####[facility] Wdgbwopjpi[address] [place], [place] [address]Dr. Emelina Navarro EGFR-AF [place] 46 mL/min/1.73m2 Critically low >=60 [facility] Comment on above: Performed By: #### B MP ####[facility] Moosibcron[address] [place], [place] [address]Dr. Emelina Navarro EGFR-NON AF [place] 38 mL/min/1.73m2 Critically low >=60 [facility] Comment on above: Performed By: #### B MP ####[facility] Xdudovxunc[address] [place], [place] [address]Dr. Emelina Navarro Glucose [Mass/Vol] 127 mg/dL Critically high 74-106 [facility] Comment on above: Performed By: #### B MP ####[facility] Zadcodmznl[address] [place], [place] [address]Dr. Emelina Navarro Potassium [Moles/Vol] 4.1 mmol/L Normal 3.5-5.1 [facility] Comment on above: Performed By: #### B MP ####[facility] Idfrurwuvx48[address] [place] [address]Dr. Emelina Navarro Sodium [Moles/Vol] 139 mmol/L Normal 136-145 [facility] Comment on above: Performed By: #### B MP ####[facility] Wumzarnrik[address] [place], [place] [address]Dr. Emelina Navarro Urea nitrogen [Mass/Vol] 39.0 mg/dL Critically high 7.0-18.0 [facility] Comment on above: Performed By: #### B MP ####[facility] M[address]ktymecl[address] [place], [place] [address]Dr. Emelina Navarro Urea nitrogen/Creatinine [Mass ratio] 21.9 mg/mg Normal [facility] Comment on above: Performed By: #### B MP ####[facility] Zclglqrfxa[address] [place], [place] [address]Dr. Emelina Navarro BNPon 10-03-2022 Natriuretic peptide B (Bld) [Mass/Vol] 7092.0 pg/mL Critically high <=900.0 [facility] Comment on above: Performed By: #### H STROPN, BNP, CMP ####[facility] Wwythnpjgn[address] [place], [place] [address]Dr. Emelina Navarro CBC AUTO DIFFon 10-03-2022 BASO # 0.0 103/ul Normal 0.0-0.1 [facility] Comment on above: Performed By: #### C BC ####[facility] Ehijnbbiww[address] [place], [place] [address]Dr. Emelina Navarro Basophils/100 WBC (Bld) 0.3 % Normal 0.2-2.0 [facility] Comment on above: Performed By: #### C BC ####[facility] Zvkudfcsfm[address] [place], [place] [address]Dr. Emelina Navarro EO # 0.3 103/ul Normal 0.0-0.7 [facility] Comment on above: Performed By: #### C BC ####[facility] Xjwmansvtf[address] [place], [place] [address]Dr. Emelina Navarro Eosinophils/100 WBC (Bld) 2.5 % Normal 0.9-7.0 [facility] Comment on above: Performed By: #### C BC ####[facility] Ldelhjjnmb[address] [place], [place] [address]Dr. Emelina Navarro Erythrocyte distribution width (RBC) [Ratio] 16.1 % Critically high 11.0-15.0 [facility] Comment on above: Performed By: #### C BC ####[facility] V[address]nlhzscc[address] [place], [place] [address]Dr. Emelina Navarro Hematocrit (Bld) [Volume fraction] 40.4 % Critically low 42.0-54.0 [facility] Comment on above: Performed By: #### C BC ####[facility] [address]ebsh[address] [place] [id number]. Emelina Navarro Hemoglobin (Bld) [Mass/Vol] 12.9 g/dL Critically low 14.0-18.0 [facility] Comment on above: Performed By: #### C BC ####[facility] [address]elwgc[address] [place] [id number]. Emelina Navarro IG # 0.05 10e3/ul Critically high 0.00-0.03 [facility] Comment on above: Performed By: #### C BC ####[facility] Ftvdfgzpia66[address] [place] [phone]. Emelina Navarro IG % 0.4 % Normal 0.0-0.5 [facility] Comment on above: Performed By: #### C BC ####[facility] Afwjeaefzr[address] [place] [address]Dr. Emelina Navarro LYMPH # 1.5 103/ul Normal 1.2-3.8 [facility] Comment on above: Performed By: #### C BC ####[facility] [address]fw[address] [place] [id number]. Emelina Navarro Lymphocytes/100 WBC (Bld) 13.1 % Critically low 20.5-60.0 [facility] Comment on above: Performed By: #### C BC ####[facility] [address]zbptt[address] [place] [id number]. Emelina Navarro MANUAL DIFF REQ NO Normal [facility] Comment on above: Performed By: #### C BC ####[facility] [address]qjuibon[address] [place] [phone]. Emelina Navarro MCH (RBC) [Entitic mass] 28.9 pg Normal 25.9-34.0 [facility] Comment on above: Performed By: #### C BC ####[facility] [address]rizkigf[address] [place] [phone]. Emelina Navarro MCHC (RBC) [Mass/Vol] 31.9 g/dL Normal 29.9-35.2 [facility] Comment on above: Performed By: #### C BC ####[facility] [address]ueura[address] [place] [id number]. Emelina Navarro MCV (RBC) [Entitic vol] 90.6 fL Normal 80.0-94.0 [facility] Comment on above: Performed By: #### C BC ####[facility] Ffudkxzqmk[address] [place] [id number]. Emelina Navarro MONO # 0.8 103/ul Normal 0.3-0.8 [facility] Comment on above: Performed By: #### C BC ####[facility] E[address]ksc[address]il[address] [place] [id number]. Awildanitza Navarro Monocytes/100 WBC (Bld) 7.0 % Normal 1.7-12.0 [facility] Comment on above: Performed By: #### C BC ####[facility] Abejtnahkf[address] [place], [place] [address]Dr. Emelina Navarro NEUT # 8.8 103/ul Critically high 1.4-6.5 [facility] Comment on above: Performed By: #### C BC ####[facility] Ithwt[address]oin[address] [place], [place] [id number]. Emelina Navarro Neutrophils/100 WBC (Bld) 76.7 % Critically high 43.0-75.0 [facility] Comment on above: Performed By: #### C BC ####[facility] Yfctankajr[address] [place], [place] [address]Dr. Emelina Navarro Platelet mean volume (Bld) [Entitic vol] 9.9 fL Normal 9.5-13.5 [facility] Comment on above: Performed By: #### C BC ####[facility] Vclpypkghw[address] [place] [id number]. Emelina Ramon PLT 201 103/ul Normal 150-450 [facility] Comment on above: Performed By: #### C BC ####[facility] Yolmbzmstz[address] [place] [id number]. Emelina Navarro RBC 4.46 106/ul Critically low 4.70-6.10 [facility] Comment on above: Performed By: #### C BC ####[facility] [address]pijnc[address]xu16[address] [place], [place] [address]Zi. Emelina Navarro WBC 11.4 103/ul Critically high 4.0-11.0 [facility] Comment on above: Performed By: #### C BC ####[facility] Vcugatgaeb89[address] [place], [place] [address]Ra. Emelina Navarro Covid-19 PCR (CVDTBH)on 09-19 SARS-CoV-2 (COVID-19) RNA RADHA+probe Ql (Unsp spec) Not detected Normal NOT DETECTED [facility] Comment on above: Result Comment: When [...] for this test is supported by the Access Rn of Health and Human Service's declaration that [...] be used). Performed By: #### C VDTBH ####[facility] Silmbqmaqk[address] [place] [id number]. Emelina Ramon PROF 14(COMP METB)on 022 Albumin [Mass/Vol] 3.1 g/dL Critically low 3.4-5.0 [facility] Comment on above: Performed By: #### H STROPN, BNP, CMP ####[facility] Sxnjojcqjo14[address] [place] [id number]. Emelina Navarro Albumin/Globulin [Mass ratio] 0.8 {ratio} Normal [facility] Comment on above: Performed By: #### H STROPN, BNP, CMP ####[facility] [address]fbnkq[address] [place] [address]Dr. Emelina Navarro ALP [Catalytic activity/Vol] 118 U/L Critically high 46-116 [facility] Comment on above: Performed By: #### H STROPN, BNP, CMP ####[facility] Exfxiolecl[address] [place] [address]Dr. Emelina Navarro ALT [Catalytic activity/Vol] 22 U/L Normal 16-63 [facility] Comment on above: Performed By: #### H STROPN, BNP, CMP ####[facility] Sqszsfrjzn[address] [place] [address]Dr. Emelina Navarro Anion gap [Moles/Vol] 8.6 mmol/L Normal [facility] Comment on above: Performed By: #### H STROPN, BNP, CMP ####[facility] Qearvicozg30[address] [place] [address]Dr. Emelina Navarro AST [Catalytic activity/Vol] 23 U/L Normal 15-37 [facility] Comment on above: Performed By: #### H STROPN, BNP, CMP ####[facility] Aqoeyhglqx7[address] [place] [address]Dr. Emelina Navarro Bilirubin [Mass/Vol] 1.0 mg/dL Normal 0.2-1.0 [facility] Comment on above: Performed By: #### H STROPN, BNP, CMP ####[facility] Gthodtzisw[address] [place] [address]Dr. Emelina Navarro Calcium [Mass/Vol] 8.4 mg/dL Critically low 8.5-10.1 [facility] Comment on above: Performed By: #### H STROPN, BNP, CMP ####[facility] Oofzkqicfh[address] [place] [address]Dr. Emelina Navarro Chloride [Moles/Vol] 101 mmol/L Normal 98-107 [facility] Comment on above: Performed By: #### H STROPN, BNP, CMP ####[facility] Fmrywgayek6[address] [place] [address]Dr. Emelina Navarro CO2 [Moles/Vol] 33.3 mmol/L Critically high 21.0-32.0 [facility] Comment on above: Performed By: #### H STROPN, BNP, CMP ####[facility] Qhcnocikaq[address] [place] [address]Dr. Emelina Navarro Creatinine [Mass/Vol] 1.52 mg/dL Critically high 0.70-1.30 [facility] Comment on above: Performed By: #### H STROPN, BNP, CMP ####[facility] Rynuewviku[address] [place], [place] [address]Dr. Emelina Navarro EGFR-AF EAST TIMORESE 56 mL/min/1.73m2 Critically low >=60 [facility] Comment on above: Performed By: #### H STROPN, BNP, CMP ####[facility] Snjytsdmdb[address] [place], [place] [address]Dr. Emelina Navarro EGFR-NON AF EAST TIMORESE 46 mL/min/1.73m2 Critically low >=60 [facility] Comment on above: Performed By: #### H STROPN, BNP, CMP ####[facility] Shwbapoxqf[address] [place], [place] [address]Dr. Emelina Navarro Globulin (S) [Mass/Vol] 4.1 g/dL Normal [facility] Comment on above: Performed By: #### H STROPN, BNP, CMP ####[facility] Xkkftemuuz[address] [place] [address]Dr. Emelina Navarro Glucose [Mass/Vol] 141 mg/dL Critically high 74-106 [facility] Comment on above: Performed By: #### H STROPN, BNP, CMP ####[facility] Wiaykndgtk52[address] [place] [address]Dr. Emelina Navarro Potassium [Moles/Vol] 3.9 mmol/L Normal 3.5-5.1 [facility] Comment on above: Performed By: #### H STROPN, BNP, CMP ####[facility] Yhjffvkahm86[address] [place] [address]Dr. Emelina Navarro Protein [Mass/Vol] 7.2 g/dL Normal 6.4-8.2 [facility] Comment on above: Performed By: #### H STROPN, BNP, CMP ####[facility] Fwmiofjzdk49[address] [place] [address]Dr. Emelina Navarro Sodium [Moles/Vol] 139 mmol/L Normal 136-145 [facility] Comment on above: Performed By: #### H STROPN, BNP, CMP ####[facility] Nojrdlptzs88[address] [place] [address]Dr. Emelina Navarro Urea nitrogen [Mass/Vol] 26.0 mg/dL Critically high 7.0-18.0 [facility] Comment on above: Performed By: #### H STROPN, BNP, CMP ####[facility] Qtudofdhoj78[address] [place] [address]Dr. Emelina Navarro Urea nitrogen/Creatinine [Mass ratio] 17.1 mg/mg Normal [facility] Comment on above: Performed By: #### H STROPN, BNP, CMP ####[facility] Aguniucenc[address] [place], [place] [address]Dr. Emelina Navarro PROTIMEon 10-03-2022 INR Coag (PPP) [Relative time] 1.76 {INR} Normal [facility] Comment on above: Performed By: #### P T, PTT ####[facility] Igtdoivvuj[address] [place], [place] [address]Dr. Emelina Navarro INR GUIDELINES SEE BELOW Normal [facility] Comment on above: Result Comment: WENDY RED INR: 2.0 - 3.0 CONDITIONS NOT LISTED BELOW 2.5 - 3.5 FOR PROSTHETIC HEART VALVE REPLACEMENT 2.5 - 3.5 RECURRENT THROMBOSIS Performed By: #### P T, PTT ####[facility] Yllasbcmki[address] [place], [place] [address]Dr. Emelina Navarro PT Coag (PPP) [Time] 18.3 s Critically high 9.0-11.6 [facility] Comment on above: Performed By: #### P T, PTT ####[facility] Amukfwgyna[address] [place], [place] [address]Dr. Emelina Navarro PTTon 10-03-2022 aPTT Coag (Bld) [Time] 33.9 s Normal 22.3-36.2 [facility] Comment on above: Performed By: #### P T, PTT ####[facility] Dzrqvvonlt[address] [place] [address]Dr. Emelina Navarro TROPONIN, HIGH SENSITIVITYon 10-03-2022 HSTROP 40.2 pg/mL Normal 4.0-76.1 [facility] Comment on above: Result Comment: CUT- OFF POINTS HAVE BEEN ESTABLISHED BASED ON THE FOURTH UNIVERSAL DEFINITIONS OF MYOCARDIALINFARCTION. THE UPPER REFERENCE LIMIT (URL) OF TROPONIN, DEFINED THE 99TH PERCENTILE OFcTnI DISTRIBUTION IN A REFERENCE POPULATION, HAS BEEN CONFIRMED THE DECISION THRESHOLDFOR RI DIAGNOSIS. Performed By: #### H STROPN, BNP, CMP ####[facility] Pmjzuxecdh[address] [place], [place] [address]Dr. Emelina Navarro XR CHEST 1 Von 10-03-2022 XR CHEST 1 V Normal [facility] PTH INTACTon 09-19-2022 PTH, Intact 52 pg/mL Normal 15-65 [facility] Comment on above: Performed By: #### P THINT ####[facility] Hkyutuyeyq[address] [place], [place] [address]Dr. Emelina Ramon FERRITINon 09-18-2022 Ferritin [Mass/Vol] 92.0 ng/mL Normal 26.0-388.0 [facility] Comment on above: Performed By: #### V ITAD, FERR, FETIBC ####[facility] [address]qbq[address] [place] [address]Dr. Emelina Navarro HEMOGRAM AND PLATELon 2021 Hematocrit (Bld) [Volume fraction] 44.3 % Normal 42.0-54.0 [facility] Comment on above: Performed By: #### H H ####[facility] Gicuiyierz[address] [place], [place] [address]Dr. Emelina Navarro Hemoglobin (Bld) [Mass/Vol] 14.0 g/dL Normal 14.0-18.0 [facility] Comment on above: Performed By: #### H H ####[facility] Hwfmrmvcbz[address] [place], [place] [address]Dr. Emelina Navarro MCH (RBC) [Entitic mass] 29.0 pg Normal 25.9-34.0 [facility] Comment on above: Performed By: #### H H ####[facility] Lzxkdexrac[address] [place] [address]Dr. Emelina Navarro MCHC (RBC) [Mass/Vol] 31.6 g/dL Normal 29.9-35.2 [facility] Comment on above: Performed By: #### H H ####[facility] Zeeseqjbwl[address] [place] [address]Dr. Emelina Navarro MCV (RBC) [Entitic vol] 91.7 fL Normal 80.0-94.0 [facility] Comment on above: Performed By: #### H H ####[facility] Wachcphxog[address] [place] [address]Dr. Emelina Navarro PLT 187 103/ul Normal 150-450 [facility] Comment on above: Performed By: #### H H ####[facility] Ofmcwqojqs87[address] [place] [address]Dr. Emelina Navarro RBC 4.83 106/ul Normal 4.70-6.10 [facility] Comment on above: Performed By: #### H H ####[facility] Oyzakkyoyv[address] [place] [address]Dr. Emelina Navarro WBC 13.9 103/ul Critically high 4.0-11.0 [facility] Comment on above: Performed By: #### H H ####[facility] Vzrqmlpynv[address] [place] [id number]. Emelina Navarro IRON AND TIBCon 09-18-2022 % SATURATION 28.9 % Normal [facility] Comment on above: Performed By: #### V ITAD, FERR, FETIBC ####[facility] P[address]tg[address] [place] [id number]. Emelina Navarro Iron [Mass/Vol] 76.0 ug/dL Normal 65.0-175.0 [facility] Comment on above: Performed By: #### V ITAD, FERR, FETIBC ####[facility] [address]xf[address]hswd[address] [place] [id number]. Emelina Navarro TIBC DIRECT 263.0 ug/dL Normal 250.0-450. 0 [facility] Comment on above: Performed By: #### V ITAD, FERR, FETIBC ####[facility] Ukvgmfaauc[address] [place] [address]Dr. Emelina Navarro MAGNESIUMon 09-18-2022 Magnesium [Mass/Vol] 2.3 mg/dL Normal 1.8-2.4 [facility] Comment on above: Performed By: #### R ENAL, URIC, MG ####[facility] Noknrwkxgw74[address] [place] [address]Dr. Emelina Navarro RENAL FUNCTION PANELon 09-18 Albumin [Mass/Vol] 3.5 g/dL Normal 3.4-5.0 [facility] Comment on above: Performed By: #### R ENAL, URIC, MG ####[facility] Tpcvjlidqs[address] [place], [place] [address]Dr. Emelina Navarro Calcium [Mass/Vol] 8.4 mg/dL Critically low 8.5-10.1 [facility] Comment on above: Performed By: #### R ENAL, URIC, MG ####[facility] [address]mdkatqtjj[address] [place], [place] [address]Dr. Emelina Navarro Chloride [Moles/Vol] 100 mmol/L Normal 98-107 [facility] Comment on above: Performed By: #### R ENAL, URIC, MG ####[facility] Oxnwxuuxml24[address] [place] [address]Dr. Emelina Navarro CO2 [Moles/Vol] 31.0 mmol/L Normal 21.0-32.0 [facility] Comment on above: Performed By: #### R ENAL, URIC, MG ####[facility] Xqocjjtarb[address] [place], [place] [address]Dr. Awildanitza Navarro Creatinine [Mass/Vol] 1.63 mg/dL Critically high 0.70-1.30 [facility] Comment on above: Performed By: #### R ENAL, URIC, MG ####[facility] [address]yekqxth[address] [place] [address]Dr. Awildanitza Ramon EGFR-AF EAST [place]ORESE 51 mL/min/1.73m2 Critically low >=60 [facility] Comment on above: Performed By: #### R ENAL, URIC, MG ####[facility] Hliqqjfxup28[address] [place] [address]Dr. Emelina Navarro EGFR-NON AF EAST [place]ESE 42 mL/min/1.73m2 Critically low >=60 [facility] Comment on above: Performed By: #### R ENAL, URIC, MG ####[facility] Ftczihgzkz8104 [place] [address]Dr. Emelina Navarro Glucose [Mass/Vol] 135 mg/dL Critically high 74-106 T [facility] Comment on above: Performed By: #### R ENAL, URIC, MG ####[facility] Griamcbkvn12[address] [place] [address]Dr. Emelina Navarro Phosphate [Mass/Vol] 3.4 mg/dL Normal 2.6-4.7 [facility] Comment on above: Performed By: #### R ENAL, URIC, MG ####[facility] Qauzpvhgxg86[address] [place] [address]Dr. Awildanitza Navarro Potassium [Moles/Vol] 4.5 mmol/L Normal 3.5-5.1 [facility] Comment on above: Performed By: #### R ENAL, URIC, MG ####[facility] Kfrotpzvdt1138 [place] [address]Dr. Awildanitza Navarro Sodium [Moles/Vol] 137 mmol/L Normal 136-145 [facility] Comment on above: Performed By: #### R ENAL, URIC, MG ####[facility] Wlxecpdbnf3[address] [place] [address]Dr. Emelina Navarro Urea nitrogen [Mass/Vol] 26.0 mg/dL Critically high 7.0-18.0 [facility] Comment on above: Performed By: #### R ENAL, URIC, MG ####[facility] Arbmemlihq6[address] [place] [address]Dr. Awiladnitza Navarro UA RANDOM W/MICROSCOPICon BACTERIA NONE SEEN Normal NONE SEEN [facility] Comment on above: Performed By: #### U AMIC ####[facility] Hyhsjdujif[address] [place] [address]Dr. Emelina Navarro Bilirubin Ql (U) Negative Normal NEGATIVE [facility] Comment on above: Performed By: #### U AMIC ####[facility] Kzgfqmcxur99[address] [place] [address]Dr. Emelina Navarro CAST NONE SEEN Normal NONE SEEN [facility] Comment on above: Performed By: #### U AMIC ####[facility] Hwajmajumt9[address] [place] [address]Dr. Emelina Navarro Clarity (U) CLEAR Normal CLEAR [facility] Comment on above: Performed By: #### U AMIC ####[facility] [address]kizvguqa[address] [place], [place] [address]Dr. Emelina Navarro Color (U) LT. YELLOW Normal YELLOW [facility] Comment on above: Performed By: #### U AMIC ####[facility] Wzdfdeftir[address] [place], [place] [address]Dr. Emelina Navarro Crystals LM Nom (Urine sed) NONE SEEN Normal NONE SEEN [facility] Comment on above: Performed By: #### U AMIC ####[facility] Zongsaqhbc[address] [place], [place] [address]Dr. Emelina Navarro Epithelial cells LM Ql (Urine sed) NONE SEEN Normal NONE SEEN /RARE [facility] Comment on above: Performed By: #### U AMIC ####[facility] Vqtlynvtke[address] [place], [place] [address]Dr. Emelina Navarro Glucose Ql (U) >1000 Abnormal NEGATIVE [facility] Comment on above: Performed By: #### U AMIC ####[facility] Goroguiifp[address] [place], [place] [address]Dr. Emelina Navarro Hemoglobin Ql (U) Negative Normal NEGATIVE [facility] Comment on above: Performed By: #### U AMIC ####[facility] Cljewkqbpb25[address] [place] [address]Dr. Emelina Navarro Ketones Ql (U) Negative Normal NEGATIVE [facility] Comment on above: Performed By: #### U AMIC ####[facility] Utmksqgynt07[address] [place] [address]Dr. Emelina Navarro LEUKOCYTES Negative Normal NEGATIVE [facility] Comment on above: Performed By: #### U AMIC ####[facility] Lnmmchybfj80[address] [place] [address]Dr. Emelina Navarro MUCOUS NONE SEEN Normal NONE SEEN [facility] Comment on above: Performed By: #### U AMIC ####[facility] Mpbvibsbji2727 [place] [address]Dr. Emelina Navarro Nitrite Ql (U) Negative Normal NEGATIVE [facility] Comment on above: Performed By: #### U AMIC ####[facility] Fqkfzjugmy37[address] [place] [address]Dr. Emelina Navarro pH (U) 6.0 [pH] Normal 5-9 [facility] Comment on above: Performed By: #### U AMIC ####[facility] Bvwacixauk[address] [place], [place] [address]Dr. Emelina Navarro RBC 0-2 Normal 0-2 [facility] Comment on above: Performed By: #### U AMIC ####[facility] Yccjoigvdt[address] [place], [place] [address]Dr. Emelina Navarro SPEC GRAVITY 1.010 Normal 1.005-<=1. 025 [facility] Comment on above: Performed By: #### U AMIC ####[facility] Ybjmvdtoqc[address] [place], [place] [address]Dr. Emelina Navarro UA PROTEIN Negative Normal NEGATIVE/ TRACE [facility] Comment on above: Performed By: #### U AMIC ####[facility] Zucgwyfibr9[address] [place] [address]Dr. Emelina Navarro Urobilinogen Qn (U) 0.2 {Ashley'U}/dL Normal 0.2 - 1. 0 [facility] Comment on above: Performed By: #### U AMIC ####[facility] Zjdixoalml1099 [place] [address]Dr. Emelina Navarro WBC NONE SEEN Normal NONE SEEN [facility] Comment on above: Performed By: #### U AMIC ####[facility] Wjtmshnhhc4387 [place] [address]Dr. Emelina Navarro URIC ACID SERUMon 09-18-2022 Urate [Mass/Vol] 9.2 mg/dL Critically high 3.5-7.2 [facility] Comment on above: Performed By: #### R ENAL, URIC, MG ####[facility] Dqrftaqzla9622 [place] [address]Dr. Emelina Navarro URINE T PROTEIN CREAT RATIOo n 09-18-2022 Protein (U) [Mass/Vol] 17.5 mg/dL Critically high <=12.0 [facility] Comment on above: Performed By: #### U RTPCR ####[facility] Uzknkammhw45[address] [place] [address]Dr. Emelina Navarro UR PROT CREAT RAT 0.61 Normal [facility] Comment on above: Performed By: #### U RTPCR ####[facility] Hjjdndlojl03[address] [place] [address]Dr. Emelina Navarro URINE CREAT 28.53 mg/dL Normal 20.00-300. 00 [facility] Comment on above: Performed By: #### U RTPCR ####[facility] Nngeqcncmm[address] [place], [place] [address]Dr. Emelina Navarro VITAMIN D 25 OHon 09-18-2022 VIT D 25-OH 49.6 ng/mL Normal [facility] Comment on above: Performed By: #### V ANA WEISS FETIBC ####[facility] Yddyzskfcy34[address] [place] [address]Dr. Emelina Navarro VIT D RANGES SEE BELOW Normal [facility] Comment on above: Result Comment: <20 ng/mL Vit D deficient 20 - <30 ng/mL Vit D insufficient 30 - 100 ng/mL Vit D sufficient >100 ng/mL Potential Toxicity Performed By: #### V ANA WEISS FETIBC ####[facility] Cwysxrifls08[address] [place] [address]Dr. Emelina Navarro A1C HEMOGLOBINon 07-31-2022 HbA1c (Bld) [Mass fraction] 6.7 % [employer] Other Glucose - FINGER STICKon Glucose [Mass/Vol] 338 mg/dL [facility] [employer] Other HbA1c (Bld) [Mass fraction]o n 07-31-2022 A1C HEMOGLOBIN [facility] [employer] Other BNPon 07-19-2022 Natriuretic peptide B (Bld) [Mass/Vol] 7571.0 pg/mL Critically high <=900.0 [facility] Comment on above: Performed By: #### B MP, BNP ####[facility] Ozvrhgbsps9460 [place] [address]Dr. Emelina Navarro PROF CHEM 8 (BAS METB)on Anion gap [Moles/Vol] 11.6 mmol/L Normal [facility] Comment on above: Performed By: #### B MP, BNP ####[facility] Vliirudfsi[address] [place], [place] [address]Dr. Emelina Navarro Calcium [Mass/Vol] 9.2 mg/dL Normal 8.5-10.1 [facility] Comment on above: Performed By: #### B MP, BNP ####[facility] Iumgvnaxxx[address] [place], [place] [address]Dr. Emelina Navarro Chloride [Moles/Vol] 102 mmol/L Normal 98-107 [facility] Comment on above: Performed By: #### B MP, BNP ####[facility] Ejykgagdzn[address] [place], [place] [address]Dr. Emelina Navarro CO2 [Moles/Vol] 30.6 mmol/L Normal 21.0-32.0 [facility] Comment on above: Performed By: #### B MP, BNP ####[facility] Indhuniauj[address] [place], [place] [address]Dr. Emelina Navarro Creatinine [Mass/Vol] 1.72 mg/dL Critically high 0.70-1.30 [facility] Comment on above: Performed By: #### B MP, BNP ####[facility] Xrpqtgcmqj14[address] [place], [place] [address]Dr. Emelina Navarro EGFR-AF EAST [place] 48 mL/min/1.73m2 Critically low >=60 [facility] Comment on above: Performed By: #### B MP, BNP ####[facility] Zmexrofilu[address] [place], [place] [address]Dr. Emelina Navarro EGFR-NON AF EAST [place]ESE 40 mL/min/1.73m2 Critically low >=60 [facility] Comment on above: Performed By: #### B MP, BNP ####[facility] Vfbyiomwlb[address] [place], [place] [address]Dr. Emelina Navarro Glucose [Mass/Vol] 76 mg/dL Normal 74-106 [facility] Comment on above: Performed By: #### B MP, BNP ####[facility] Dbueydfoup[address] [place], [place] [address]Dr. Emelina Navarro Potassium [Moles/Vol] 4.2 mmol/L Normal 3.5-5.1 [facility] Comment on above: Performed By: #### B MP, BNP ####[facility] Hkfnevgwey[address] [place], [place] [address]Dr. Emelina Navarro Sodium [Moles/Vol] 140 mmol/L Normal 136-145 [facility] Comment on above: Performed By: #### B MP, BNP ####[facility] Onzdzlnzkc[address] [place], [place] [address]Dr. Emelina Navarro Urea nitrogen [Mass/Vol] 19.0 mg/dL Critically high 7.0-18.0 [facility] Comment on above: Performed By: #### B MP, BNP ####[facility] Wmdbdpeecg[address] [place], [place] [address]Dr. Emelina Navarro Urea nitrogen/Creatinine [Mass ratio] 11.0 mg/mg Normal [facility] Comment on above: Performed By: #### B MP, BNP ####[facility] Awgmmykrhm[address] [place], [place] [address]Dr. Emelina Navarro CBC AUTO DIFFon 06-16-2022 BASO # 0.0 103/ul Normal 0.0-0.1 [facility] Comment on above: Performed By: #### C BC ####[facility] Xzpdavqbpe[address] [place] [id number]. Emelina Navarro Basophils/100 WBC (Bld) 0.1 % Critically low 0.2-2.0 [facility] Comment on above: Performed By: #### C BC ####[facility] Acnybmcymy[address] [place] [id number]. Emelina Navarro EO # 0.1 103/ul Normal 0.0-0.7 [facility] Comment on above: Performed By: #### C BC ####[facility] Yiwjczvuep[address] [place], [place] [address]Dr. Emelina Navarro Eosinophils/100 WBC (Bld) 0.4 % Critically low 0.9-7.0 [facility] Comment on above: Performed By: #### C BC ####[facility] Osenmyxwri[address] [place], [place] [address]Dr. Emelina Navarro Erythrocyte distribution width (RBC) [Ratio] 17.1 % Critically high 11.0-15.0 [facility] Comment on above: Performed By: #### C BC ####[facility] [address]at[address]zps[address] [place], [place] [address]Dr. Emelina Navarro Hematocrit (Bld) [Volume fraction] 44.7 % Normal 42.0-54.0 [facility] Comment on above: Performed By: #### C BC ####[facility] Txqbynbjtn1124 [place] [id number]. Emelina Navarro Hemoglobin (Bld) [Mass/Vol] 14.5 g/dL Normal 14.0-18.0 [facility] Comment on above: Performed By: #### C BC ####[facility] Qiwoimigfj9478 [place] [id number]. Emelina Navarro IG # 0.07 10e3/ul Critically high 0.00-0.03 [facility] Comment on above: Performed By: #### C BC ####[facility] W[address]ubxknq[address] [place], [place] [id number]. Emelina Navarro IG % 0.4 % Normal 0.0-0.5 [facility] Comment on above: Performed By: #### C BC ####[facility] Fvlqmmtjxf8835 [place] [id number]. Emelina Navarro LYMPH # 2.0 103/ul Normal 1.2-3.8 [facility] Comment on above: Performed By: #### C BC ####[facility] Cxsgjkijur5330 [place], [place] [address]Kx. Emelina Navarro Lymphocytes/100 WBC (Bld) 12.1 % Critically low 20.5-60.0 [facility] Comment on above: Performed By: #### C BC ####[facility] Fqhhwhfmuh6738 [place] [id number]. Emelina Navarro MANUAL DIFF REQ NO Normal [facility] Comment on above: Performed By: #### C BC ####[facility] Jqqjrrhkkt1561 [place] [id number]. Emelina Navarro MCH (RBC) [Entitic mass] 28.2 pg Normal 25.9-34.0 [facility] Comment on above: Performed By: #### C BC ####[facility] Dqaejdgotq0945 [place] [id number]. Emelina Navarro MCHC (RBC) [Mass/Vol] 32.4 g/dL Normal 29.9-35.2 [facility] Comment on above: Performed By: #### C BC ####[facility] Lgklpxhkzv6950 [place] [id number]. Emelina Navarro MCV (RBC) [Entitic vol] 86.8 fL Normal 80.0-94.0 [facility] Comment on above: Performed By: #### C BC ####[facility] Mliwafpxbf9421 [place] [id number]. Emelina Navarro MONO # 0.7 103/ul Normal 0.3-0.8 [facility] Comment on above: Performed By: #### C BC ####[facility] Pfdtxxnkjc4103 [place] [id number]. Emelina Navarro Monocytes/100 WBC (Bld) 4.3 % Normal 1.7-12.0 [facility] Comment on above: Performed By: #### C BC ####[facility] Arljhpmcwx2323 [place] [id number]. Emelina Navarro NEUT # 13.4 103/ul Critically high 1.4-6.5 [facility] Comment on above: Performed By: #### C BC ####[facility] Ggumqshxpn7249 [place] [id number]. Emelina Navarro Neutrophils/100 WBC (Bld) 82.7 % Critically high 43.0-75.0 [facility] Comment on above: Performed By: #### C BC ####[facility] Jtgixnlkjt2635 [place] [id number]. Emelina Navarro Platelet mean volume (Bld) [Entitic vol] 9.5 fL Normal 9.5-13.5 [facility] Comment on above: Performed By: #### C BC ####[facility] Iwlyisfnrz6432 [place] [id number]. Emelina Ramon PLT 218 103/ul Normal 150-450 [facility] Comment on above: Performed By: #### C BC ####[facility] Ztarqfejrs2651 [place] [id number]. Emelina Ramon RBC 5.15 106/ul Normal 4.70-6.10 [facility] Comment on above: Performed By: #### C BC ####[facility] Gmccqxrlxp2728 [place] [id number]. Emelina Navarro WBC 16.2 103/ul Critically high 4.0-11.0 [facility] Comment on above: Performed By: #### C BC ####[facility] Lgvrbzvuev9700 [place] [id number]. Emelina Navarro PROF 14(COMP METB)on 022 Albumin [Mass/Vol] 3.3 g/dL Critically low 3.4-5.0 [facility] Comment on above: Performed By: #### C MP ####[facility] Lsiimkiqrx5468 [place] [id number]. Emelina Navarro Albumin/Globulin [Mass ratio] 0.8 {ratio} Normal [facility] Comment on above: Performed By: #### C MP ####[facility] Yaclvnagcu7556 [place] [id number]. Emelina Navarro ALP [Catalytic activity/Vol] 81 U/L Normal 46-116 [facility] Comment on above: Performed By: #### C MP ####[facility] Edhdsiwwls6874 [place] [id number]. Emelina Navarro ALT [Catalytic activity/Vol] 34 U/L Normal 16-63 [facility] Comment on above: Performed By: #### C MP ####[facility] Dsiaalzcux1198 [place] [id number]. Emelina Navarro Anion gap [Moles/Vol] 14.1 mmol/L Normal [facility] Comment on above: Performed By: #### C MP ####[facility] Svrtcikmxf[address] [place], [place] [address]Dr. Emelina Navarro AST [Catalytic activity/Vol] 22 U/L Normal 15-37 [facility] Comment on above: Performed By: #### C MP ####[facility] Bpalevtkdp[address] [place], [place] [address]Dr. Emelina Navarro Bilirubin [Mass/Vol] 1.0 mg/dL Normal 0.2-1.0 [facility] Comment on above: Performed By: #### C MP ####[facility] Fkeesciixi98[address] [place], [place] [address]Dr. Emelina Navarro Calcium [Mass/Vol] 8.6 mg/dL Normal 8.5-10.1 [facility] Comment on above: Performed By: #### C MP ####[facility] Gfatlwsaqk0264 [place] [address]Dr. Emelina Navarro Chloride [Moles/Vol] 98 mmol/L Normal 98-107 [facility] Comment on above: Performed By: #### C MP ####[facility] Xxockazzdo6957 [place] [address]Dr. Emelina Navarro CO2 [Moles/Vol] 28.0 mmol/L Normal 21.0-32.0 [facility] Comment on above: Performed By: #### C MP ####[facility] Lwsjxfdjlf2354 [place] [id number]. Emelina Navarro Creatinine [Mass/Vol] 1.83 mg/dL Critically high 0.70-1.30 [facility] Comment on above: Performed By: #### C MP ####[facility] Lypvmrwtfx2598 [place], [place] [address]Wi. Emelina Navarro EGFR-AF [place] 45 mL/min/1.73m2 Critically low >=60 [facility] Comment on above: Performed By: #### C MP ####[facility] Pswusoumgf3428 [place] [id number]. Emelina Navarro EGFR-NON AF [place] 37 mL/min/1.73m2 Critically low >=60 [facility] Comment on above: Performed By: #### C MP ####[facility] Admkrwgjbu3828 [place] [id number]. Emelina Navarro Globulin (S) [Mass/Vol] 4.3 g/dL Normal [facility] Comment on above: Performed By: #### C MP ####[facility] Lhgschfwjx8519 [place] [id number]. Emelina Navarro Glucose [Mass/Vol] 173 mg/dL Critically high 74-106 [facility] Comment on above: Performed By: #### C MP ####[facility] Haojrqezxh1992 [place] [id number]. Emelina Navarro Potassium [Moles/Vol] 4.1 mmol/L Normal 3.5-5.1 [facility] Comment on above: Performed By: #### C MP ####[facility] Deuxvbjgqq5701 [place] [id number]. Emelina Navarro Protein [Mass/Vol] 7.6 g/dL Normal 6.4-8.2 [facility] Comment on above: Performed By: #### C MP ####[facility] Ryuybxzrry0350 [place] [id number]. Emelina Navarro Sodium [Moles/Vol] 136 mmol/L Normal 136-145 [facility] Comment on above: Performed By: #### C MP ####[facility] Bvtexuqbyh2309 [place] [address]Dr. Emelina Navarro Urea nitrogen [Mass/Vol] 46.0 mg/dL Critically high 7.0-18.0 [facility] Comment on above: Performed By: #### C MP ####[facility] Oijmrlplkf25[address] [place], [place] [address]Dr. Emelina Navarro Urea nitrogen/Creatinine [Mass ratio] 25.1 mg/mg Normal [facility] Comment on above: Performed By: #### C MP ####[facility] Sabftdedeo[address] [place], [place] [address]Dr. Emelina Navarro PROTIMEon 06-16-2022 INR Coag (PPP) [Relative time] 2.12 {INR} Normal [facility] Comment on above: Performed By: #### P T ####[facility] Olfgzjbpve[address] [place], [place] [address]Dr. Emelina Navarro INR GUIDELINES SEE BELOW Normal [facility] Comment on above: Result Comment: WENDY RED INR: 2.0 - 3.0 CONDITIONS NOT LISTED BELOW 2.5 - 3.5 FOR PROSTHETIC HEART VALVE REPLACEMENT 2.5 - 3.5 RECURRENT THROMBOSIS Performed By: #### P T ####[facility] Qyoffnymwg85[address] [place], [place] [address]Dr. Emelina Navarro PT Coag (PPP) [Time] 21.8 s Critically high 9.0-11.6 [facility] Comment on above: Performed By: #### P T ####[facility] Ndiurxkwdx27[address] [place], [place] [address]Dr. Emelina Navarro BNPon 06-15-2022 Natriuretic peptide B (Bld) [Mass/Vol] 4304.0 pg/mL Critically high <=900.0 [facility] Comment on above: Performed By: #### B CONSTRUCTION DIRECTOR ####[facility] Fuaqobqzlk[address] [place], [place] [address]Dr. Emelina Navarro CBC AUTO DIFFon 06-15-2022 BASO # 0.0 103/ul Normal 0.0-0.1 [facility] Comment on above: Performed By: #### C BC ####[facility] Feyzbsatlf9138 [place] [id number]. Emelina Navarro Basophils/100 WBC (Bld) 0.1 % Critically low 0.2-2.0 [facility] Comment on above: Performed By: #### C BC ####[facility] Ltqmwwzwsg1467 [place] [id number]. Emelina Navarro EO # 0.0 103/ul Normal 0.0-0.7 [facility] Comment on above: Performed By: #### C BC ####[facility] Z[address]jmsshf[address] [place], [place] [address]Dr. Emelina Navarro Eosinophils/100 WBC (Bld) 0.1 % Critically low 0.9-7.0 [facility] Comment on above: Performed By: #### C BC ####[facility] Bxebyvdhrw[address] [place], [place] [address]Dr. Emelina Navarro Erythrocyte distribution width (RBC) [Ratio] 17.1 % Critically high 11.0-15.0 [facility] Comment on above: Performed By: #### C BC ####[facility] [address]xshcq[address] [place], [place] [address]Dr. Emelina Navarro Hematocrit (Bld) [Volume fraction] 40.9 % Critically low 42.0-54.0 [facility] Comment on above: Performed By: #### C BC ####[facility] Emqtieevun8107 [place] [id number]. Emelina aNvarro Hemoglobin (Bld) [Mass/Vol] 13.4 g/dL Critically low 14.0-18.0 [facility] Comment on above: Performed By: #### C BC ####[facility] Tmcokoxuve3401 [place] [id number]. Emelina Navarro IG # 0.17 10e3/ul Critically high 0.00-0.03 [facility] Comment on above: Performed By: #### C BC ####[facility] Xdgeuoizxh[address] [place], [place] [address]Dr. Emelina Navarro IG % 0.8 % Critically high 0.0-0.5 [facility] Comment on above: Performed By: #### C BC ####[facility] Pajponyjgf4148 [place] [id number]. Emelina Navarro LYMPH # 1.4 103/ul Normal 1.2-3.8 [facility] Comment on above: Performed By: #### C BC ####[facility] Zwhmitvflw4191 [place] [id number]. Emelina Ramon Lymphocytes/100 WBC (Bld) 6.8 % Critically low 20.5-60.0 [facility] Comment on above: Performed By: #### C BC ####[facility] Iybwgkgngy8696 [place] [address]Dr. Awildanitza Navarro MANUAL DIFF REQ NO Normal [facility] Comment on above: Performed By: #### C BC ####[facility] Cjrniojzna6671 [place] [phone]. Emelina Ramon MCH (RBC) [Entitic mass] 28.6 pg Normal 25.9-34.0 [facility] Comment on above: Performed By: #### C BC ####[facility] Gmjicsptwp9004 [place] [phone]. Emelina Navarro MCHC (RBC) [Mass/Vol] 32.8 g/dL Normal 29.9-35.2 [facility] Comment on above: Performed By: #### C BC ####[facility] Piotlqtzbo3038 [place] [id number]. Awildanitza Ramon MCV (RBC) [Entitic vol] 87.2 fL Normal 80.0-94.0 [facility] Comment on above: Performed By: #### C BC ####[facility] Ucguzfgvdz4769 [place] [id number]. Emelina Navarro MONO # 0.8 103/ul Normal 0.3-0.8 [facility] Comment on above: Performed By: #### C BC ####[facility] Xsfuxrrnyi7635 [place] [id number]. Emelina Ramon Monocytes/100 WBC (Bld) 3.8 % Normal 1.7-12.0 [facility] Comment on above: Performed By: #### C BC ####[facility] Oxhkmqrptw7730 [place] [id number]. Emelina Navarro NEUT # 17.9 103/ul Critically high 1.4-6.5 [facility] Comment on above: Performed By: #### C BC ####[facility] Vsncklkzev8483 [place] [id number]. Emelina Ramon Neutrophils/100 WBC (Bld) 88.4 % Critically high 43.0-75.0 [facility] Comment on above: Performed By: #### C BC ####[facility] Iqllehqfbf0454 [place] [id number]. Emelina Navarro Platelet mean volume (Bld) [Entitic vol] 9.7 fL Normal 9.5-13.5 [facility] Comment on above: Performed By: #### C BC ####[facility] Suqckjhgfc2293 [place] [id number]. Emelina Navarro PLT 211 103/ul Normal 150-450 [facility] Comment on above: Performed By: #### C BC ####[facility] Ufurbjzedv0904 [place] [id number]. Emelina Navarro RBC 4.69 106/ul Critically low 4.70-6.10 [facility] Comment on above: Performed By: #### C BC ####[facility] Zdsvaphhvj9650 [place] [id number]. Awildanitza Navarro WBC 20.2 103/ul Critically high 4.0-11.0 [facility] Comment on above: Performed By: #### C BC ####[facility] Lrxseurehx6350 [place] [phone]. Emelina Navarro PROF 14(COMP METB)on 022 Albumin [Mass/Vol] 2.9 g/dL Critically low 3.4-5.0 [facility] Comment on above: Performed By: #### C MP ####[facility] Mikeqxsgum7315 [place] [address]Dr. Emelina Navarro Albumin/Globulin [Mass ratio] 0.7 {ratio} Normal [facility] Comment on above: Performed By: #### C MP ####[facility] Obspjoyqsg5125 [place] [phone]. Emelina Navarro ALP [Catalytic activity/Vol] 77 U/L Normal 46-116 [facility] Comment on above: Performed By: #### C MP ####[facility] Yclmreyxig9348 [place] [phone]. Emelina Navarro ALT [Catalytic activity/Vol] 26 U/L Normal 16-63 [facility] Comment on above: Performed By: #### C MP ####[facility] Wxvrvwvbom1279 [place] [address]Dr. Emelina Navarro Anion gap [Moles/Vol] 13.2 mmol/L Normal [facility] Comment on above: Performed By: #### C MP ####[facility] Odolfcxzpm34[address] [place], [place] [address]Dr. Emelina Navarro AST [Catalytic activity/Vol] 18 U/L Normal 15-37 [facility] Comment on above: Performed By: #### C MP ####[facility] Gupbdnhjqc21[address] [place], [place] [address]Dr. Emelina Navarro Bilirubin [Mass/Vol] 0.8 mg/dL Normal 0.2-1.0 [facility] Comment on above: Performed By: #### C MP ####[facility] Zkhsupxijm6122[address] [place], [place] [address]Dr. Emelina Navarro Calcium [Mass/Vol] 8.4 mg/dL Critically low 8.5-10.1 [facility] Comment on above: Performed By: #### C MP ####[facility] Cjydtvzcss23[address] [place], [place] [address]Dr. Emelina Navarro Chloride [Moles/Vol] 101 mmol/L Normal 98-107 [facility] Comment on above: Performed By: #### C MP ####[facility] Rekdeafdlk6[address] [place], [place] [address]Dr. Emelina Navarro CO2 [Moles/Vol] 27.9 mmol/L Normal 21.0-32.0 [facility] Comment on above: Performed By: #### C MP ####[facility] Jtymimtfum7658 [place] [phone]. Emelina Navarro Creatinine [Mass/Vol] 1.90 mg/dL Critically high 0.70-1.30 [facility] Comment on above: Performed By: #### C MP ####[facility] Xzrjlmogea5708 [place] [phone]. Emelina Navarro EGFR-AF [place] 43 mL/min/1.73m2 Critically low >=60 [facility] Comment on above: Performed By: #### C MP ####[facility] Xqekabmvkk9471 [place] [phone]. Emelina Navarro EGFR-NON AF [place] 36 mL/min/1.73m2 Critically low >=60 [facility] Comment on above: Performed By: #### C MP ####[facility] Ethjiwousi1189 [place] [address]Dr. Emelina Navarro Globulin (S) [Mass/Vol] 3.9 g/dL Normal [facility] Comment on above: Performed By: #### C MP ####[facility] Cthvihiaae9159 [place] [address]Dr. Emelina Navarro Glucose [Mass/Vol] 175 mg/dL Critically high 74-106 [facility] Comment on above: Performed By: #### C MP ####[facility] Cimanugkde6947 [place] [phone]. Emelina Navarro Potassium [Moles/Vol] 4.1 mmol/L Normal 3.5-5.1 [facility] Comment on above: Performed By: #### C MP ####[facility] Gqyccudcxb0757 [place] [phone]. Emelina Navarro Protein [Mass/Vol] 6.8 g/dL Normal 6.4-8.2 [facility] Comment on above: Performed By: #### C MP ####[facility] Yzcrvxbsrd1824 [place] [phone]. Emelina Navarro Sodium [Moles/Vol] 138 mmol/L Normal 136-145 [facility] Comment on above: Performed By: #### C MP ####[facility] Spfeywgcww2469 [place] [address]Dr. Emelina Navarro Urea nitrogen [Mass/Vol] 46.0 mg/dL Critically high 7.0-18.0 [facility] Comment on above: Performed By: #### C MP ####[facility] Fyrvcsjfml7100 [place] [address]Dr. Emelina Navarro Urea nitrogen/Creatinine [Mass ratio] 24.2 mg/mg Normal [facility] Comment on above: Performed By: #### C MP ####[facility] Afxgoiftmc5[address] [place], [place] [address]Dr. Emelina Navarro PROTIMEon 06-15-2022 INR Coag (PPP) [Relative time] 3.34 {INR} Normal [facility] Comment on above: Performed By: #### P T ####[facility] Wuchhkdcet27[address] [place], [place] [address]Dr. Emelina Navarro INR GUIDELINES SEE BELOW Normal [facility] Comment on above: Result Comment: WENDY RED INR: 2.0 - 3.0 CONDITIONS NOT LISTED BELOW 2.5 - 3.5 FOR PROSTHETIC HEART VALVE REPLACEMENT 2.5 - 3.5 RECURRENT THROMBOSIS Performed By: #### P T ####[facility] Lfsonafleq99[address] [place], [place] [address]Dr. Emelina Navarro PT Coag (PPP) [Time] 33.3 s Critically high 9.0-11.6 [facility] Comment on above: Performed By: #### P T ####[facility] Palknrxmvx9[address] [place], [place] [address]Dr. Emelina Navarro CBC AUTO DIFFon 06-14-2022 BASO # 0.0 103/ul Normal 0.0-0.1 [facility] Comment on above: Performed By: #### C BC ####[facility] Netpcnitvn6123[address] [place], [place] [address]Dr. Emelina Navarro Basophils/100 WBC (Bld) 0.1 % Critically low 0.2-2.0 [facility] Comment on above: Performed By: #### C BC ####[facility] Mrwgoflkmn0523 [place] [id number]. Emelina Navarro EO # 0.0 103/ul Normal 0.0-0.7 [facility] Comment on above: Performed By: #### C BC ####[facility] Qlcermtkhw7095 [place] [address]Dr. Emelina Navarro Eosinophils/100 WBC (Bld) 0.0 % Critically low 0.9-7.0 [facility] Comment on above: Performed By: #### C BC ####[facility] Bvlleqtedn8674 [place] [address]Dr. Emelina Navarro Erythrocyte distribution width (RBC) [Ratio] 17.0 % Critically high 11.0-15.0 [facility] Comment on above: Performed By: #### C BC ####[facility] Qrjfssnyfj5[address] [place], [place] [address]Dr. Emelina Navarro Hematocrit (Bld) [Volume fraction] 40.2 % Critically low 42.0-54.0 [facility] Comment on above: Performed By: #### C BC ####[facility] Oqyfimwcbj9[address] [place], [place] [address]Dr. Emelina Navarro Hemoglobin (Bld) [Mass/Vol] 13.0 g/dL Critically low 14.0-18.0 [facility] Comment on above: Performed By: #### C BC ####[facility] Cqshpmknlz1142 [place] [address]Dr. Emelina Navarro IG # 0.18 10e3/ul Critically high 0.00-0.03 [facility] Comment on above: Performed By: #### C BC ####[facility] Tnrutqoamu3781 [place] [address]Dr. Emelina Navarro IG % 0.8 % Critically high 0.0-0.5 [facility] Comment on above: Performed By: #### C BC ####[facility] Ecbehemjsc17[address] [place], [place] [address]Dr. Awildanitza Navarro LYMPH # 1.1 103/ul Critically low 1.2-3.8 [facility] Comment on above: Performed By: #### C BC ####[facility] Xyndwzemdn4490 [place] [id number]. Emelina Navarro Lymphocytes/100 WBC (Bld) 5.4 % Critically low 20.5-60.0 [facility] Comment on above: Performed By: #### C BC ####[facility] Ngpryzjhpf9167 [place] [phone]. Emelina Ramon MANUAL DIFF REQ NO Normal [facility] Comment on above: Performed By: #### C BC ####[facility] Wpgolscrxo3367 [place] [phone]. Emelina Ramon MCH (RBC) [Entitic mass] 28.4 pg Normal 25.9-34.0 [facility] Comment on above: Performed By: #### C BC ####[facility] Yrcikeytlg5737 [place] [address]Dr. Emelina Ramon MCHC (RBC) [Mass/Vol] 32.3 g/dL Normal 29.9-35.2 [facility] Comment on above: Performed By: #### C BC ####[facility] Wznmkfwdse8124 [place] [id number]. Emelina Ramon MCV (RBC) [Entitic vol] 88.0 fL Normal 80.0-94.0 [facility] Comment on above: Performed By: #### C BC ####[facility] Inlchtwynz4317 [place] [address]Dr. Awildanitza Ramon MONO # 0.6 103/ul Normal 0.3-0.8 [facility] Comment on above: Performed By: #### C BC ####[facility] Iojuiqaehn7015 [place] [phone]. Awildanitza Navarro Monocytes/100 WBC (Bld) 3.0 % Normal 1.7-12.0 [facility] Comment on above: Performed By: #### C BC ####[facility] Omkpyyondj20[address] [place], [place] [address]Dr. Emelina Navarro NEUT # 19.3 103/ul Critically high 1.4-6.5 [facility] Comment on above: Performed By: #### C BC ####[facility] Yijrkafpia5903 [place] [id number]. Emelina Navarro Neutrophils/100 WBC (Bld) 90.7 % Critically high 43.0-75.0 [facility] Comment on above: Performed By: #### C BC ####[facility] Ysdzfriver3347 [place] [id number]. Emelina Navarro Platelet mean volume (Bld) [Entitic vol] 10.6 fL Normal 9.5-13.5 [facility] Comment on above: Performed By: #### C BC ####[facility] Snalcnocxi6425 [place] [id number]. Emelina Navarro PLT 191 103/ul Normal 150-450 [facility] Comment on above: Performed By: #### C BC ####[facility] Hwpesndsui5138 [place] [id number]. Emelina Navarro RBC 4.57 106/ul Critically low 4.70-6.10 [facility] Comment on above: Performed By: #### C BC ####[facility] Dgbqidgsfn2992 [place] [id number]. Emelina Navarro WBC 21.3 103/ul Critically high 4.0-11.0 [facility] Comment on above: Performed By: #### C BC ####[facility] [facility] Dvnjwmmhzj[address] [place] [id number]. Emelina Navarro PROF 14(COMP METB)on 022 Albumin [Mass/Vol] 2.5 g/dL Critically low 3.4-5.0 [facility] Comment on above: Performed By: #### C MP ####[facility] Zderzvppee[address] [place] [address]Dr. Emelina Navarro Albumin/Globulin [Mass ratio] 0.6 {ratio} Normal [facility] Comment on above: Performed By: #### C MP ####[facility] Uwmoxejsmp0457 [place] [id number]. Emelina Navarro ALP [Catalytic activity/Vol] 77 U/L Normal 46-116 [facility] Comment on above: Performed By: #### C MP ####[facility] Jsbihnpndy5240 [place], [place] [address]Qf. Emelina Navarro ALT [Catalytic activity/Vol] 25 U/L Normal 16-63 [facility] Comment on above: Performed By: #### C MP ####[facility] Odavyhcqsq3091 [place], [place] [address]Ea. Emelina Navarro Anion gap [Moles/Vol] 12.5 mmol/L Normal [facility] Comment on above: Performed By: #### C MP ####[facility] Pesccediam7219 [place] [id number]. Emelina Navarro AST [Catalytic activity/Vol] 34 U/L Normal 15-37 [facility] Comment on above: Performed By: #### C MP ####[facility] Ttwyegfspp6471 [place] [id number]. Emelina Navarro Bilirubin [Mass/Vol] 0.9 mg/dL Normal 0.2-1.0 [facility] Comment on above: Performed By: #### C MP ####[facility] Psmgsgkyda0415 [place] [id number]. Emelina Navarro Calcium [Mass/Vol] 8.1 mg/dL Critically low 8.5-10.1 [facility] Comment on above: Performed By: #### C MP ####[facility] Aodcghzkvv1404 [place] [id number]. Emelina Navarro Chloride [Moles/Vol] 101 mmol/L Normal 98-107 [facility] Comment on above: Performed By: #### C MP ####[facility] Cqfilolbww6396 [place] [id number]. Emelina Navarro CO2 [Moles/Vol] 24.8 mmol/L Normal 21.0-32.0 [facility] Comment on above: Performed By: #### C MP ####[facility] Jgbpmtisva4198 [place] [id number]. Emelina Navarro Creatinine [Mass/Vol] 1.93 mg/dL Critically high 0.70-1.30 [facility] Comment on above: Performed By: #### C MP ####[facility] Kwpzjduotp7622 [place], [place] [address]Vm. Emelina Navarro EGFR-AF [place] 42 mL/min/1.73m2 Critically low >=60 [facility] Comment on above: Performed By: #### C MP ####[facility] Uyndbhqyxe4455 [place], [place] [address]Gf. Emelina Navarro EGFR-NON AF [place] 35 mL/min/1.73m2 Critically low >=60 [facility] Comment on above: Performed By: #### C MP ####[facility] Vlulhqfdzd2383 [place] [id number]. Emelina Navarro Globulin (S) [Mass/Vol] 3.9 g/dL Normal [facility] Comment on above: Performed By: #### C MP ####[facility] Axzreioani9744 [place] [id number]. Emelina Navarro Glucose [Mass/Vol] 236 mg/dL Critically high 74-106 T [facility] Comment on above: Performed By: #### C MP ####[facility] Gtsawsycsp7738 [place] [id number]. Emelina Navarro Potassium [Moles/Vol] 5.3 mmol/L Critically high 3.5-5.1 [facility] Comment on above: Performed By: #### C MP ####[facility] Frvqioenzt7016 [place] [id number]. Emelina Navarro Protein [Mass/Vol] 6.4 g/dL Normal 6.4-8.2 [facility] Comment on above: Performed By: #### C MP ####[facility] Djhwqwifbn4249 [place] [id number]. Emelina Navarro Sodium [Moles/Vol] 133 mmol/L Critically low 136-145 [facility] Comment on above: Performed By: #### C MP ####[facility] Fvvnvzeddp2716 [place] [id number]. Emelina Navarro Urea nitrogen [Mass/Vol] 43.0 mg/dL Critically high 7.0-18.0 [facility] Comment on above: Performed By: #### C MP ####[facility] Mlgippqryy8[address] [place] [address]Dr. Emelina Navarro Urea nitrogen/Creatinine [Mass ratio] 22.3 mg/mg Normal [facility] Comment on above: Performed By: #### C MP ####[facility] Exryrdmina65[address] [place] [address]Dr. Emelina Navarro PROTIMEon 06-14-2022 INR Coag (PPP) [Relative time] 4.39 {INR} Critically high [facility] Comment on above: Performed By: #### P T ####[facility] [address]zqylpplpa[address] [place], [place] [address]Dr. Emelina Navarro INR GUIDELINES SEE BELOW Normal [facility] Comment on above: Result Comment: WENDY RED INR: 2.0 - 3.0 CONDITIONS NOT LISTED BELOW 2.5 - 3.5 FOR PROSTHETIC HEART VALVE REPLACEMENT 2.5 - 3.5 RECURRENT THROMBOSIS Performed By: #### P T ####[facility] Twmzlploys[address] [place], [place] [address]Dr. Emelina Navarro PT Coag (PPP) [Time] 43.0 s Critically high 9.0-11.6 [facility] [place] [facility] Comment on above: Performed By: #### P T ####[facility] Ncenpszdrb8[address] [place], [place] [address]Dr. Emelina Navarro XR CHEST 1 Von 06-14-2022 XR CHEST 1 V Normal [facility] [place] [facility] BNPon 06-13-2022 Natriuretic peptide B (Bld) [Mass/Vol] 9889.0 pg/mL Critically high <=900.0 [facility] [place] [facility] Comment on above: Performed By: #### B MP, BNP ####[facility] Sjdlzcmgje7[address] [place], [place] [address]Dr. Emelina Navarro CBC AUTO DIFFon 06-13-2022 BASO # 0.0 103/ul Normal 0.0-0.1 [facility] Comment on above: Performed By: #### C BC ####[facility] Djslwubiql9[address] [place], [place] [address]DrWesley Navarro Basophils/100 WBC (Bld) 0.1 % Critically low 0.2-2.0 [facility] Comment on above: Performed By: #### C BC ####[facility] Scohweknmw76[address] [place] [address]Dr. Emelina Navarro EO # 0.0 103/ul Normal 0.0-0.7 [facility] Comment on above: Performed By: #### C BC ####[facility] Wmpzeqrmnf3775 [place] [address]Dr. Emelina Ramon Eosinophils/100 WBC (Bld) 0.0 % Critically low 0.9-7.0 [facility] Comment on above: Performed By: #### C BC ####[facility] Lbbkqufmpx8[address] [place], [place] [address]Dr. Awildanitza Navarro Erythrocyte distribution width (RBC) [Ratio] 17.4 % Critically high 11.0-15.0 [facility] Comment on above: Performed By: #### C BC ####[facility] Zsbvqofrsm[address] [place], [place] [address]DrWesley Emelina Navarro Hematocrit (Bld) [Volume fraction] 43.5 % Normal 42.0-54.0 [facility] Comment on above: Performed By: #### C BC ####[facility] Ygtvujmzub[address] [place], [place] [address]DrWesley Emelina Navarro Hemoglobin (Bld) [Mass/Vol] 14.1 g/dL Normal 14.0-18.0 [facility] Comment on above: Performed By: #### C BC ####[facility] Daolmtsxfe24[address] [place], [place] [address]Dr. Awildanitza Navarro IG # 0.15 10e3/ul Critically high 0.00-0.03 [facility] Comment on above: Performed By: #### C BC ####[facility] Ptpccrlegd[address] [place], [place] [address]Dr. Emelina Navarro IG % 0.8 % Critically high 0.0-0.5 [facility] Comment on above: Performed By: #### C BC ####[facility] Iqxdlxqywq[address] [place], [place] [address]DrWesley Navarro LYMPH # 0.9 103/ul Critically low 1.2-3.8 [facility] Comment on above: Performed By: #### C BC ####[facility] Ykoqxmghtn8186 [place] [address]DrWesley Navarro Lymphocytes/100 WBC (Bld) 5.0 % Critically low 20.5-60.0 [facility] Comment on above: Performed By: #### C BC ####[facility] Pixmuepype2913 [place] [address]DrWesley Navarro MANUAL DIFF REQ NO Normal [facility] Comment on above: Performed By: #### C BC ####[facility] Loowhiprpw1598 [place] [address]Dr. Emelina Navarro MCH (RBC) [Entitic mass] 28.8 pg Normal 25.9-34.0 [facility] Comment on above: Performed By: #### C BC ####[facility] K[address]ffymljw[address] [place], [place] [address]DrWesley Navarro MCHC (RBC) [Mass/Vol] 32.4 g/dL Normal 29.9-35.2 [facility] Comment on above: Performed By: #### C BC ####[facility] Ocnkipnske[address] [place], [place] [address]DrWesley Navarro MCV (RBC) [Entitic vol] 89.0 fL Normal 80.0-94.0 [facility] Comment on above: Performed By: #### C BC ####[facility] [address]jghwxjmkb[address] [place], [place] [address]DrWesley Navarro MONO # 0.1 103/ul Critically low 0.3-0.8 [facility] Comment on above: Performed By: #### C BC ####[facility] Guljjtkxxl[address] [place], [place] [address]DrWesley Navarro Monocytes/100 WBC (Bld) 0.5 % Critically low 1.7-12.0 [facility] Comment on above: Performed By: #### C BC ####[facility] Tyzzreywps06[address] [place], [place] [address]DrWesley Navarro NEUT # 17.4 103/ul Critically high 1.4-6.5 [facility] Comment on above: Performed By: #### C BC ####[facility] Zhwfiojwde5[address] [place] [address]Dr. Emelina Navarro Neutrophils/100 WBC (Bld) 93.6 % Critically high 43.0-75.0 [facility] Comment on above: Performed By: #### C BC ####[facility] Vfljuypqzy3023 [place] [address]Dr. Emelina Navarro Platelet mean volume (Bld) [Entitic vol] 9.8 fL Normal 9.5-13.5 [facility] Comment on above: Performed By: #### C BC ####[facility] Udozwtznvh0857 [place] [address]Dr. Emelina Navarro PLT 186 103/ul Normal 150-450 [facility] Comment on above: Performed By: #### C BC ####[facility] Dydpoyqlsv[address] [place], [place] [address]Dr. Emelina Navarro RBC 4.89 106/ul Normal 4.70-6.10 [facility] Comment on above: Performed By: #### C BC ####[facility] Topcablnzt9[address] [place] [address]Dr. Emelina Navarro WBC 18.6 103/ul Critically high 4.0-11.0 [facility] Comment on above: Performed By: #### C BC ####[facility] Mvlnhoebmi9[address] [place], [place] [address]Dr. Emelina Navarro CT CHEST WO CONon 06-13-2022 CT CHEST WO CON Normal [facility] CULTURE SPUTUMon 06-13-2022 CULTURE SPUTUM Culture Observations : NORMAL RESPIRATORY CEDRIC. Normal [facility] Comment on above: Performed By: #### S PUTCX ####[facility] Gjqgzwbmbc[address] [place], [place] [address]Dr. Emelina Navarro ECHOCARDIO M/2D COMPLETEon 0 06-13-2022 ECHOCARDIO M/2D COMPLETE Normal [facility] POINT OF CARE GLUCOSEon 07-2 Glucose [Mass/Vol] 255 mg/dL Critically high 74-106 T [facility] Comment on above: Performed By: #### P OCGLUC ####[facility] Xtuyzarjnc22[address] [place], [place] [address]Dr. Awildanitza Navarro Glucose [Mass/Vol] 408 mg/dL Critically high 74-106 [facility] Comment on above: Performed By: #### P OCGLUC ####[facility] Zcuauyiqns[address] [place], [place] [address]Dr. Emelina Navarro PROF CHEM 8 (BAS METB)on Anion gap [Moles/Vol] 14.7 mmol/L Normal [facility] Comment on above: Performed By: #### B MP, BNP ####[facility] Ynwtbdlfyr30[address] [place], [place] [address]Dr. Emelina Navarro Calcium [Mass/Vol] 8.3 mg/dL Critically low 8.5-10.1 [facility] Comment on above: Performed By: #### B MP, BNP ####[facility] Tmnefyfknh9[address] [place], [place] [address]Dr. Emelina Navarro Chloride [Moles/Vol] 102 mmol/L Normal 98-107 [facility] Comment on above: Performed By: #### B MP, BNP ####[facility] Jumvrvqqhm4[address] [place], [place] [address]Dr. Emelina Navarro CO2 [Moles/Vol] 26.0 mmol/L Normal 21.0-32.0 [facility] Comment on above: Performed By: #### B MP, BNP ####[facility] Fosvicrgwt12[address] [place], [place] [address]Dr. Emelina Navarro Creatinine [Mass/Vol] 2.07 mg/dL Critically high 0.70-1.30 [facility] Comment on above: Performed By: #### B MP, BNP ####[facility] Acqdkrhclw7[address] [place], [place] [address]Dr. Emelina Navarro EGFR-AF [place] 39 mL/min/1.73m2 Critically low >=60 [facility] Comment on above: Performed By: #### B MP, BNP ####[facility] Rkqkgiznml88[address] [place] [address]Dr. Emelina Navarro EGFR-NON AF [place] 32 mL/min/1.73m2 Critically low >=60 [facility] Comment on above: Performed By: #### B MP, BNP ####[facility] Dfuvflxntb1061 [place] [address]Dr. Emelina Navarro Glucose [Mass/Vol] 245 mg/dL Critically high 74-106 T [facility] Comment on above: Performed By: #### B MP, BNP ####[facility] Owlltjlmob86[address] [place], [place] [address]Dr. Emelina Navarro Potassium [Moles/Vol] 4.7 mmol/L Normal 3.5-5.1 [facility] Comment on above: Performed By: #### B MP, BNP ####[facility] Mdclufvulc[address] [place], [place] [address]Dr. Emelina Navarro Sodium [Moles/Vol] 138 mmol/L Normal 136-145 [facility] Comment on above: Performed By: #### B MP, BNP ####[facility] Jupeuohcnb88[address] [place], [place] [address]Dr. Emelina Navarro Urea nitrogen [Mass/Vol] 30.0 mg/dL Critically high 7.0-18.0 [facility] Comment on above: Performed By: #### B MP, BNP ####[facility] Iqsiysbywf6[address] [place], [place] [address]Dr. Emelina Navarro Urea nitrogen/Creatinine [Mass ratio] 14.5 mg/mg Normal [facility] Comment on above: Performed By: #### B MP, BNP ####[facility] Zvapedkvce4[address] [place], [place] [address]Dr. Emelina Navarro PROTIMEon 06-13-2022 INR Coag (PPP) [Relative time] 3.59 {INR} Normal [facility] Comment on above: Performed By: #### P T ####[facility] Ceutxrqups5[address] [place], [place] [address]Dr. Emelina Navarro INR GUIDELINES SEE BELOW Normal [facility] Comment on above: Result Comment: WENDY RED INR: 2.0 - 3.0 CONDITIONS NOT LISTED BELOW 2.5 - 3.5 FOR PROSTHETIC HEART VALVE REPLACEMENT 2.5 - 3.5 RECURRENT THROMBOSIS Performed By: #### P T ####[facility] Odipepqnvq224[address] [place], [place] [address]Dr. Emelina Navarro PT Coag (PPP) [Time] 35.7 s Critically high 9.0-11.6 [facility] Comment on above: Performed By: #### P T ####[facility] Mavzxsrwpe[address] [place], [place] [address]Dr. Emelina Navarro SPUTUM GRAM STAINon 06-13-20 COMMENTS Normal [facility] Comment on above: Performed By: #### S PUTGS ####[facility] Qzpymfogej149[address] [place], [place] [address]Dr. Emelina Navarro DIPHTHEROIDS Normal [facility] Comment on above: Performed By: #### S PUTGS ####[facility] Ccquztlttl2774[address] [place], [place] [address]Dr. Emelina Navarro EPITHELIALS <25 Normal [facility] Comment on above: Performed By: #### S PUTGS ####[facility] Xbyrqzhoqp2467[address] [place], [place] [address]Dr. Emelina Navarro FUNGAL ELEMENTS Normal [facility] Comment on above: Performed By: #### S PUTGS ####[facility] Imhwgqgkqi4622[address] [place], [place] [address]Dr. Emelina Navarro GRAM NEG BACILLI Normal [facility] Comment on above: Performed By: #### S PUTGS ####[facility] Ecclvssako[address] [place], [place] [address]Dr. Emelina Navarro GRAM NEG DIPPLOCOCCI Normal [facility] Comment on above: Performed By: #### S PUTGS ####[facility] Fmxmapnebc5592[address] [place], [place] [address]Dr. Emelina Navarro GRAM POS BACILLI Normal [facility] Comment on above: Performed By: #### S PUTGS ####[facility] Mzsouescrz230[address] [place], [place] [address]Dr. Emelina Navarro GRAM POSITIVE COCCI RARE Normal [facility] Comment on above: Performed By: #### S PUTGS ####[facility] Wgmhrjlggb205[address] [place], [place] [address]Dr. Emelina Navarro WBC (Bld) [#/Vol] 10*3/uL Normal [facility] Comment on above: Performed By: #### S PUTGS ####[facility] Bqpxeyksfp5405[address] [place], [place] [address]Dr. Emelina Navarro XR CHEST 1 Von 06-13-2022 XR CHEST 1 V Normal [facility] BNPon 06-12-2022 Natriuretic peptide B (Bld) [Mass/Vol] 6268.0 pg/mL Critically high <=900.0 [facility] Comment on above: Performed By: #### B CONSTRUCTION DIRECTOR, CMP ####[facility] Zeqbhboewf[address] [place], [place] [address]Dr. Emelina Navarro CBC AUTO DIFFon 06-12-2022 BASO # 0.1 103/ul Normal 0.0-0.1 [facility] Comment on above: Performed By: #### C BC ####[facility] Zdlypkjstb4[address] [place], [place] [address]Dr. Emelina Navarro Basophils/100 WBC (Bld) 0.3 % Normal 0.2-2.0 [facility] Comment on above: Performed By: #### C BC ####[facility] Fvxlhdqqlf4[address] [place], [place] [address]Dr. Emelina Navarro EO # 0.1 103/ul Normal 0.0-0.7 [facility] Comment on above: Performed By: #### C BC ####[facility] Kylruzwyad36[address] [place], [place] [address]Dr. Emelina Navarro Eosinophils/100 WBC (Bld) 0.4 % Critically low 0.9-7.0 [facility] Comment on above: Performed By: #### C BC ####[facility] Xommoibfnv6[address] [place], [place] [address]Dr. Emelina Navarro Erythrocyte distribution width (RBC) [Ratio] 17.7 % Critically high 11.0-15.0 [facility] Comment on above: Performed By: #### C BC ####[facility] Trazxrvxkq5728 [place] [id number]. Emelina Navarro Hematocrit (Bld) [Volume fraction] 44.4 % Normal 42.0-54.0 [facility] Comment on above: Performed By: #### C BC ####[facility] Adgkvmhtrv5779 [place] [id number]. Emelina Navarro Hemoglobin (Bld) [Mass/Vol] 14.3 g/dL Normal 14.0-18.0 [facility] Comment on above: Performed By: #### C BC ####[facility] Bcvakoavjj2683 [place] [id number]. Emelina Ramon IG # 0.11 10e3/ul Critically high 0.00-0.03 [facility] Comment on above: Performed By: #### C BC ####[facility] Obvabkooba[address] [place] [address]Dr. Emelina Navarro IG % 0.5 % Normal 0.0-0.5 [facility] Comment on above: Performed By: #### C BC ####[facility] Tknrcrqncf1690 [place] [id number]. Awildanitza Navarro LYMPH # 1.7 103/ul Normal 1.2-3.8 [facility] Comment on above: Performed By: #### C BC ####[facility] Gefbdndozv9002 [place] [id number]. Awildanitza Navarro Lymphocytes/100 WBC (Bld) 8.4 % Critically low 20.5-60.0 [facility] Comment on above: Performed By: #### C BC ####[facility] Vxsbefkcji3250 [place] [id number]. Awildanitza Navarro MANUAL DIFF REQ NO Normal [facility] Comment on above: Performed By: #### C BC ####[facility] Axkcckfwrl3048 [place] [id number]. Emelina Navarro MCH (RBC) [Entitic mass] 28.3 pg Normal 25.9-34.0 [facility] Comment on above: Performed By: #### C BC ####[facility] Keysbmqyom1914 [place] [id number]. Emelina Navarro MCHC (RBC) [Mass/Vol] 32.2 g/dL Normal 29.9-35.2 [facility] Comment on above: Performed By: #### C BC ####[facility] Wjjwhzpyyx6590 [place] [id number]. Emelina Navarro MCV (RBC) [Entitic vol] 87.9 fL Normal 80.0-94.0 [facility] Comment on above: Performed By: #### C BC ####[facility] Hzbehgxwld1866 [place] [id number]. Emelina Navarro MONO # 1.4 103/ul Critically high 0.3-0.8 [facility] Comment on above: Performed By: #### C BC ####[facility] Vtphahwohu2564 [place] [id number]. Emelina Navarro Monocytes/100 WBC (Bld) 7.1 % Normal 1.7-12.0 [facility] Comment on above: Performed By: #### C BC ####[facility] [address] [place], [place] [address]Dr. Emelina Navarro NEUT # 16.8 103/ul Critically high 1.4-6.5 [facility] Comment on above: Performed By: #### C BC ####[facility] Uolcgtbxsr3974 [place] [id number]. Emelina Navarro Neutrophils/100 WBC (Bld) 83.3 % Critically high 43.0-75.0 [facility] Comment on above: Performed By: #### C BC ####[facility] Fecmbazcbm4505 [place] [id number]. Emelina Navarro Platelet mean volume (Bld) [Entitic vol] 10.0 fL Normal 9.5-13.5 [facility] Comment on above: Performed By: #### C BC ####[facility] Nijgaxjonv0630 [place] [id number]. Emelina Ramon PLT 227 103/ul Normal 150-450 [facility] Comment on above: Performed By: #### C BC ####[facility] Wkdhxhshtv0365 [place], [place] [address]Va. Emelina Navarro RBC 5.05 106/ul Normal 4.70-6.10 [facility] Comment on above: Performed By: #### C BC ####[facility] Pzukmbbhgr7042 [place], [place] [address]Pt. Emelina Navarro WBC 20.2 103/ul Critically high 4.0-11.0 [facility] Comment on above: Performed By: #### C BC ####[facility] Teqmckxyjm0137 [place], [place] [address]Xp. Emelina Navarro CULTURE BLOODon 06-12-2022 Microscopic examination of blood, culture Culture Observations: NO GROWTH AT 5 DAYS. Normal [facility] Comment on above: Performed By: #### B LDCX2 ####[facility] Kkvzzumggn2707 [place], [place] [address]Uf. Emelina Navarro Microscopic examination of blood, culture Culture Observations: NO GROWTH AT 5 DAYS. Normal [facility] Comment on above: Performed By: #### B LDCX1 ####[facility] Nkjgwmrpby4056 [place], [place] [address]Qf. Emelina Navarro Covid-19 PCR (CVDTB)on 05-20 SARS-CoV-2 (COVID-19) RNA RADHA+probe Ql (Unsp spec) Not detected Normal NOT DETECTED [facility] Comment on above: Result Comment: When [...] for this test is supported by the Van of Health and Human Service's declaration that [...] be used). Performed By: #### C VDTB ####[facility] [address]wswiercw[address] [place], [place] [address]Dr. Emelina Navarro ER URINE PROFILEon 2 Bilirubin Ql (U) Negative Normal NEGATIVE [facility] Comment on above: Performed By: #### E RUR ####[facility] Trtjdxiygo[address] [place], [place] [address]Dr. Awildanitza Navarro Clarity (U) CLEAR Normal CLEAR [facility] Comment on above: Performed By: #### E RUR ####[facility] Qeoccsnily[address] [place], [place] [address]Dr. Awildanitza Navarro Color (U) YELLOW Normal YELLOW [facility] Comment on above: Performed By: #### E RUR ####[facility] Znkblpaurx[address] [place], [place] [address]Dr. Emelina Navarro ERUAHD A micrscopic examina tion will be performed if indicated. Normal [facility] Comment on above: Performed By: #### E RUR ####[facility] [address]ssobg[address]lf[address] [place], [place] [address]Dr. Awildanitza Ramon Glucose Ql (U) >1000 Abnormal NEGATIVE [facility] Comment on above: Performed By: #### E RUR ####[facility] Eeybuaosxm[address] [place], [place] [address]Dr. Emelina Navarro Hemoglobin Ql (U) Negative Normal NEGATIVE [facility] Comment on above: Performed By: #### E RUR ####[facility] Vmlzrrdufj[address] [place], [place] [address]Dr. Emelina Navarro Ketones Ql (U) Negative Normal NEGATIVE [facility] Comment on above: Performed By: #### E RUR ####[facility] Frihcnwcgb4[address] [place], [place] [address]Dr. Emelina Navarro LEUKOCYTES Negative Normal NEGATIVE [facility] Comment on above: Performed By: #### E RUR ####[facility] Arndxsslxe[address] [place], [place] [address]Dr. Emelina Navarro Nitrite Ql (U) Negative Normal NEGATIVE [facility] Comment on above: Performed By: #### E RUR ####[facility] Dpznnotvep45[address] [place] [address]Dr. Awildanitza Ramon pH (U) 6.0 [pH] Normal 5-9 [facility] Comment on above: Performed By: #### E RUR ####[facility] Stngdasnjr9325 [place] [address]Dr. Emelina Navarro SPEC GRAVITY 1.010 Normal 1.005-<=1. 025 [facility] Comment on above: Performed By: #### E RUR ####[facility] Ckbqjrezwq5271 [place] [address]Dr. Emelina Navarro UA PROTEIN Negative Normal NEGATIVE/ TRACE [facility] Comment on above: Performed By: #### E RUR ####[facility] Jvtliigyou[address] [place], [place] [address]Dr. Emelina Navarro UR MICRO IND NOT INDICATED Normal [facility] Comment on above: Performed By: #### E RUR ####[facility] Egwjeeoxxz8360 [place] [address]Dr. Emelina Navarro Urobilinogen Qn (U) 1.0 {Ashley'U}/dL Normal 0.2 - 1. 0 [facility] Comment on above: Performed By: #### E RUR ####[facility] Uxsqoqigrh[address] [place], [place] [address]Dr. Emelina Navarro LACTATE/LACTIC ACIDon 2021 Lactate [Moles/Vol] 1.2 mmol/L Normal 0.4-1.9 [facility] Comment on above: Performed By: #### L ACT ####[facility] Bdxymhmcxg[address] [place], [place] [address]Dr. Emelina Navarro PROF 14(COMP METB)on 022 Albumin [Mass/Vol] 3.4 g/dL Normal 3.4-5.0 [facility] Comment on above: Performed By: #### B CONSTRUCTION DIRECTOR, CMP ####[facility] Kkcfhvehid[address] [place], [place] [address]Dr. Emelina Navarro Albumin/Globulin [Mass ratio] 0.8 {ratio} Normal [facility] Comment on above: Performed By: #### B CONSTRUCTION DIRECTOR, CMP ####[facility] Awtcnwedxo8851 [place] [address]Dr. Emelina Navarro ALP [Catalytic activity/Vol] 100 U/L Normal 46-116 [facility] Comment on above: Performed By: #### B CONSTRUCTION DIRECTOR, CMP ####[facility] Zbmobinhfq2741 [place] [address]Dr. Emelina Navarro ALT [Catalytic activity/Vol] 26 U/L Normal 16-63 [facility] Comment on above: Performed By: #### B CONSTRUCTION DIRECTOR, CMP ####[facility] Ydfcsraedb16[address] [place], [place] [address]Dr. Emelina Navarro Anion gap [Moles/Vol] 11.3 mmol/L Normal [facility] Comment on above: Performed By: #### B CONSTRUCTION DIRECTOR, CMP ####[facility] Ytcagcihrv[address] [place], [place] [address]Dr. Emelina Navarro AST [Catalytic activity/Vol] 19 U/L Normal 15-37 [facility] Comment on above: Performed By: #### B CONSTRUCTION DIRECTOR, CMP ####[facility] Bugyhfpmiz4217[address] [place], [place] [address]Dr. Emelina Navarro Bilirubin [Mass/Vol] 1.4 mg/dL Critically high 0.2-1.0 [facility] Comment on above: Performed By: #### B CONSTRUCTION DIRECTOR, CMP ####[facility] Zxjaxnefur0366 [place] [address]Dr. Emelina Navarro Calcium [Mass/Vol] 9.1 mg/dL Normal 8.5-10.1 [facility] Comment on above: Performed By: #### B CONSTRUCTION DIRECTOR, CMP ####[facility] Csdmzbdvhz9087 [place] [address]Dr. Emelina Navarro Chloride [Moles/Vol] 103 mmol/L Normal 98-107 [facility] Comment on above: Performed By: #### B CONSTRUCTION DIRECTOR, CMP ####[facility] Rkvoayaufo4576[address] [place], [place] [address]Dr. Emelina Navarro CO2 [Moles/Vol] 27.8 mmol/L Normal 21.0-32.0 [facility] Comment on above: Performed By: #### B CONSTRUCTION DIRECTOR, CMP ####[facility] Ukdtvxbbzp5910 [place] [address]Dr. Emelina Navarro Creatinine [Mass/Vol] 1.75 mg/dL Critically high 0.70-1.30 [facility] Comment on above: Performed By: #### B CONSTRUCTION DIRECTOR, CMP ####[facility] Ybbhxcvgpa37[address] [place], [place] [address]Dr. Emelina Navarro EGFR-AF EAST [place]ORESE 47 mL/min/1.73m2 Critically low >=60 [facility] Comment on above: Performed By: #### B CONSTRUCTION DIRECTOR, CMP ####[facility] Gcjfsktypu9[address] [place], [place] [address]Dr. Emelina Navarro EGFR-NON AF EAST [place] 39 mL/min/1.73m2 Critically low >=60 [facility] Comment on above: Performed By: #### B CONSTRUCTION DIRECTOR, CMP ####[facility] Aeijjaqltz45[address] [place], [place] [address]Dr. Emelina Navarro Globulin (S) [Mass/Vol] 4.1 g/dL Normal [facility] Comment on above: Performed By: #### B CONSTRUCTION DIRECTOR, CMP ####[facility] Yysfjhlqhn99[address] [place], [place] [address]Dr. Emelina Navarro Glucose [Mass/Vol] 120 mg/dL Critically high 74-106 [facility] Comment on above: Performed By: #### B CONSTRUCTION DIRECTOR, CMP ####[facility] Wnlixaeegp6323 [place] [address]Dr. Emelina Navarro Potassium [Moles/Vol] 4.1 mmol/L Normal 3.5-5.1 [facility] Comment on above: Performed By: #### B CONSTRUCTION DIRECTOR, CMP ####[facility] Itoygicsjp9656[address] [place], [place] [address]Dr. Emelina Navarro Protein [Mass/Vol] 7.5 g/dL Normal 6.4-8.2 [facility] Comment on above: Performed By: #### B CONSTRUCTION DIRECTOR, CMP ####[facility] Urtwwdikoh9960[address] [place], [place] [address]Dr. Emelina Navarro Sodium [Moles/Vol] 138 mmol/L Normal 136-145 [facility] Comment on above: Performed By: #### B CONSTRUCTION DIRECTOR, CMP ####[facility] Hpprzngzhr1826[address] [place], [place] [address]Dr. Emelina Navarro Urea nitrogen [Mass/Vol] 24.0 mg/dL Critically high 7.0-18.0 [facility] Comment on above: Performed By: #### B CONSTRUCTION DIRECTOR, CMP ####[facility] Tnnmqwyylv6646[address] [place], [place] [address]Dr. Emelina Navarro Urea nitrogen/Creatinine [Mass ratio] 13.7 mg/mg Normal [facility] Comment on above: Performed By: #### B CONSTRUCTION DIRECTOR, CMP ####[facility] Ywllbhevzs6[address] [place], [place] [address]Dr. Emelina Navarro SPUTUM CULTUREon 05-11-2022 Epithelial cells LM Ql (Urine sed) Few Normal [facility] Comment on above: Performed By: #### C XSPTUM ####[facility] Foapppkoht68[address] [place], [place] [address]Dr. Emelina Navarro Gram Stain Evaluation Comment Normal [facility] Comment on above: Result Comment: This specimen is of good quality and is acceptable for routinebacterial culture. Performed By: #### C XSPTUM ####[facility] Qvjxyfpany[address] [place], [place] [address]Dr. Emelina Navarro Lower Respiratory Culture Final report Normal [facility] Comment on above: Performed By: #### C XSPTUM ####[facility] Luycub[address]sh[address] [place], [place] [id number]. Emelina Navarro Result 1 Comment Normal [facility] Comment on above: Result Comment: Few gram positive cocci Performed By: #### C XSPTUM ####[facility] Kcfzzfviql[address] [place], [place] [id number]. Emelina Navarro Result Comment: Rout ine respiratory cedric Result 2 Normal [facility] Comment on above: Performed By: #### C XSPTUM ####[facility] Nketkmuddp4002 [place] [address]Dr. Emelina Navarro Result 3 Normal [facility] Comment on above: Performed By: #### C XSPTUM ####[facility] Ywslenscrx1572 [place] [address]Dr. Emelina Navarro Result 4 Normal [facility] Comment on above: Performed By: #### C XSPTUM ####[facility] Kyinrcaiyb5128 [place] [address]Dr. Emelina Navarro White Blood Cells Few Normal [facility] Comment on above: Performed By: #### C XSPTUM ####[facility] Krjwuaetne[address] [place], [place] [address]Dr. Emelina Navarro CBC W MANUAL DIFFon 05-10-20 22 ATYPICAL LYMPH # Normal [facility] Comment on above: Performed By: #### C BCMAN ####[facility] Zmzkhelzai[address] [place], [place] [address]Dr. Emelina Navarro ATYPICAL LYMPH % Normal [facility] Comment on above: Performed By: #### C BCMAN ####[facility] Regjmzvrnn69[address] [place], [place] [address]Dr. Emelina Navarro BAND # 0.5 103/ul Critically high 0.0-0.3 [facility] Comment on above: Performed By: #### C BCMAN ####[facility] Hmezviuywj[address] [place], [place] [address]Dr. Emelina Ramon BAND % 2 % Normal 0-5 [facility] Comment on above: Performed By: #### C BCMAN ####[facility] Ywkwqjuwap35[address] [place], [place] [address]Dr. Emelina Navarro BASOM # 0.00 103/ul Normal 0.00-0.10 [facility] Comment on above: Performed By: #### C BCMAN ####[facility] Jukuyagkqo[address] [place], [place] [address]Dr. Emelina Ramon BASOM % 0.0 % Critically low 0.2-2.0 [facility] Comment on above: Performed By: #### C BCADRIAN ####[facility] Cemlorrvvl8602 [place] [id number]. Emelina Navarro BLAST # Normal [facility] Comment on above: Performed By: #### C BCMAN ####[facility] Dvkigazkhv7131 [place] [id number]. Emelina Navarro BLAST % Normal [facility] Comment on above: Performed By: #### C BCMAN ####[facility] Bxxyyjnhph4957 [place] [id number]. Emelina Navarro CORRECTED WBC Normal 4.0-11.0 [facility] Comment on above: Performed By: #### C BCADRIAN ####[facility] Djnipeeavl7984 [place] [address]Dr. Emelina Navarro EOS # 0.24 103/ul Normal 0.00-0.70 [facility] Comment on above: Performed By: #### C BCADRIAN ####[facility] Kzccmacojl2[address] [place], [place] [address]Dr. Emelina Navarro EOS% 1.0 % Normal 0.9-7.0 [facility] Comment on above: Performed By: #### C BCADRIAN ####[facility] Vikkgnybgn8693 [place] [address]Dr. Emelina Navarro HCT 41.6 % Critically low 42.0-54.0 [facility] Comment on above: Performed By: #### C BCADRIAN ####[facility] Qhrzipwzvh4849 [place] [address]Dr. Emelina Navarro HGB 13.2 g/dl Critically low 14.0-18.0 [facility] Comment on above: Performed By: #### C BCADRIAN ####[facility] Uyuzimjznc9719 [place] [phone]. Emelina Navarro LYMPHM # 0.71 103/ul Critically low 1.20-3.80 [facility] Comment on above: Performed By: #### C BCADRIAN ####[facility] Qsecarfmzk0598 [place] [phone]. Emelina Navarro LYMPHM% 3.0 % Critically low 20.5-60.0 [facility] Comment on above: Performed By: #### C PURVI ####[facility] Kjbsjnvzll3926 [place] [phone]. Emelina Navarro MCH 28.3 pg Normal 25.9-34.0 [facility] Comment on above: Performed By: #### C PURVI ####[facility] Xtdrsrglrp1568 [place] [phone]. Emelina Navarro MCHC 31.7 g/dl Normal 29.9-35.2 [facility] Comment on above: Performed By: #### C PURVI ####[facility] Cbplfprvlc8074 [place] [phone]. Emelina Navarro MCV 89.3 fL Normal 80.0-94.0 [facility] Comment on above: Performed By: #### C PURVI ####[facility] Hvzsbventg9964 [place] [phone]. Emelina Navarro METAMYELOCYTE # Normal [facility] Comment on above: Performed By: #### C PURVI ####[facility] Duliamltuf5016 [place] [phone]. Emelina Navarro METAMYELOCYTE % Normal [facility] Comment on above: Performed By: #### C PURVI ####[facility] Lwdwlykchl3401 [place] [phone]. Emelina Navarro MONOM# 0.24 103/ul Critically low 0.30-0.80 [facility] Comment on above: Performed By: #### C PURVI ####[facility] Lhmjtbfjfm8923 [place] [phone]. Emelina Navarro MONOM% 1.0 % Critically low 1.7-12.0 [facility] Comment on above: Performed By: #### C PURVI ####[facility] [address]jjhb[address] [place], [place] [address]Dr. Emelina Navarro MPV 9.7 fL Normal 9.5-13.5 [facility] Comment on above: Performed By: #### C PURVI ####[facility] Levzzgopha[address] [place], [place] [address]Dr. Emelina Navarro MYELOCYTE # Normal [facility] Comment on above: Performed By: #### C PURVI ####[facility] Jrjgwequdl8710 [place], [place] [address]Lm. Emelina Navarro MYELOCYTE % Normal [facility] Comment on above: Performed By: #### C PURVI ####[facility] Cqvzligshs9647 [place], [place] [address]Qk. Emelina Navarro NRBC Normal [facility] Comment on above: Performed By: #### C PURVI ####[facility] Rezlgfuxeb9719 [place], [place] [address]Gc. Emelina Navarro PLT 192 103/ul Normal 150-450 [facility] Comment on above: Performed By: #### C PURVI ####[facility] Fepvoklfvu5617 [place], [place] [address]Xe. Emelina Navarro RBC 4.66 106/ul Critically low 4.70-6.10 [facility] Comment on above: Performed By: #### C PURVI ####[facility] Luooxwlted8050 [place], [place] [address]Yh. Emelina Navarro RDW 16.1 % Critically high 11.0-15.0 [facility] Comment on above: Performed By: #### C PURVI ####[facility] Pqmlsnmpxe3292 [place], [place] [address]Xt. Emelina Navarro SEG # 21.95 103/ul Critically high 1.40-6.50 [facility] Comment on above: Performed By: #### C PURVI ####[facility] Teysbgknsi1496 [place], [place] [address]Fd. Emelina Navarro SEG % 93.0 % Critically high 43.0-75.0 [facility] Comment on above: Performed By: #### C PURVI ####[facility] Lshqczcatq0324 [place], [place] [address]Qi. Emelina Navarro WBC 23.6 103/ul Critically high 4.0-11.0 [facility] Comment on above: Performed By: #### C PURVI ####[facility] Ldlgxuftey40[address] [place] [address]Dr. Emelina Navarro CRPon 05-10-2022 CRP 2.3 mg/dL Critically high <=1.0 [facility] Comment on above: Performed By: #### C MP, HSTROPN, CRP ####[facility] Hcfxvruipq5848 [place] [address]Dr. Emelina Navarro DIGOXINon 05-10-2022 DIG 0.6 ng/mL Critically low 0.9-2.0 [facility] Comment on above: Performed By: #### D IG ####[facility] Nxbbbltedz6102 [place] [address]Dr. Emelina Navarro POINT OF CARE GLUCOSEon 04-20 Glucose [Mass/Vol] 246 mg/dL Critically high 74-106 [facility] Comment on above: Performed By: #### P OCGLUC ####[facility] Uvuqcwnckh5446 [place] [address]Dr. Emelina Navarro PROF 14(COMP METB)on 022 Albumin [Mass/Vol] 3.0 g/dL Critically low 3.4-5.0 [facility] Comment on above: Performed By: #### C MP, HSTROPN, CRP ####[facility] Fhadkvqtja3350 [place] [address]Dr. Emelina Navarro Albumin/Globulin [Mass ratio] 0.7 {ratio} Normal [facility] Comment on above: Performed By: #### C MP, HSTROPN, CRP ####[facility] Vuvzmquwtq6448 [place] [address]Dr. Emelina Navarro ALP [Catalytic activity/Vol] 95 U/L Normal 46-116 [facility] Comment on above: Performed By: #### C MP, HSTROPN, CRP ####[facility] Ddxqfxzgsg3255 [place] [address]Dr. Emelina Navarro ALT [Catalytic activity/Vol] 75 U/L Critically high 16-63 [facility] Comment on above: Performed By: #### C MP, HSTROPN, CRP ####[facility] Eyykjreykl3490 [place] [address]Dr. Emelina Navarro Anion gap [Moles/Vol] 11.1 mmol/L Normal [facility] Comment on above: Performed By: #### C MP, HSTROPN, CRP ####[facility] Nbvfpebtkp4709 [place] [address]Dr. Emelina Navarro AST [Catalytic activity/Vol] 25 U/L Normal 15-37 [facility] Comment on above: Performed By: #### C MP, HSTROPN, CRP ####[facility] Ggbfblvmpx5061 [place] [address]Dr. Emelina Navarro Bilirubin [Mass/Vol] 0.4 mg/dL Normal 0.2-1.0 [facility] Comment on above: Performed By: #### C MP, HSTROPN, CRP ####[facility] Esfijqzqtx6524 [place] [address]Dr. Emelina Navarro Calcium [Mass/Vol] 8.3 mg/dL Critically low 8.5-10.1 [facility] Comment on above: Performed By: #### C MP, HSTROPN, CRP ####[facility] Suhphauouk4939 [place] [address]Dr. Emelina Navarro Chloride [Moles/Vol] 100 mmol/L Normal 98-107 [facility] Comment on above: Performed By: #### C MP, HSTROPN, CRP ####[facility] Njlpzzuuyp3823 [place] [address]Dr. Emelina Navarro CO2 [Moles/Vol] 28.6 mmol/L Normal 21.0-32.0 [facility] Comment on above: Performed By: #### C MP, HSTROPN, CRP ####[facility] Pzvqpkminp6064 [place] [address]Dr. Emelina Navarro Creatinine [Mass/Vol] 1.58 mg/dL Critically high 0.70-1.30 [facility] Comment on above: Performed By: #### C MP, HSTROPN, CRP ####[facility] Hoolwcwyvr8270 [place] [address]Dr. Yilan Navarro EGFR-AF EAST [place] 53 mL/min/1.73m2 Critically low >=60 [facility] Comment on above: Performed By: #### C MP, HSTROPN, CRP ####[facility] Ddgptckimj9806 [place] [address]Dr. Emelina Navarro EGFR-NON AF E[place] 44 mL/min/1.73m2 Critically low >=60 [facility] Comment on above: Performed By: #### C MP, HSTROPN, CRP ####[facility] Aaiicihxhi1631 [place] [address]Dr. Emelina Navarro Globulin (S) [Mass/Vol] 4.2 g/dL Normal [facility] Comment on above: Performed By: #### C MP, HSTROPN, CRP ####[facility] Vzkbosqhhy5831 [place] [address]Dr. Emelina Navarro Glucose [Mass/Vol] 230 mg/dL Critically high 74-106 [facility] Comment on above: Performed By: #### C MP, HSTROPN, CRP ####[facility] Udcubijgga5193 [place] [address]Dr. Emelina Navarro Potassium [Moles/Vol] 4.7 mmol/L Normal 3.5-5.1 [facility] Comment on above: Performed By: #### C MP, HSTROPN, CRP ####[facility] Mfylfobbij4523 [place] [address]Dr. Emelina Navarro Protein [Mass/Vol] 7.2 g/dL Normal 6.4-8.2 [facility] Comment on above: Performed By: #### C MP, HSTROPN, CRP ####[facility] Nsztytbqos1426 [place] [address]Dr. Emelina Navarro Sodium [Moles/Vol] 135 mmol/L Critically low 136-145 [facility] Comment on above: Performed By: #### C MP, HSTROPN, CRP ####[facility] Dwkpfuyisx8249 [place] [address]Dr. Emelina Navarro Urea nitrogen [Mass/Vol] 45.0 mg/dL Critically high 7.0-18.0 [facility] Comment on above: Performed By: #### C MP, HSTROPN, CRP ####[facility] Rxhpjmlcku5404 [place] [address]Dr. Emelina Navarro Urea nitrogen/Creatinine [Mass ratio] 28.5 mg/mg Normal [facility] Comment on above: Performed By: #### C MP, HSTROPN, CRP ####[facility] Rgaomwodfq1687 [place] [address]Dr. Emelina Navarro PROTIMEon 05-10-2022 INR Coag (PPP) [Relative time] 2.93 {INR} Normal [facility] Comment on above: Performed By: #### P T ####[facility] [address]ugqhcdnc[address] [place], [place] [address]Dr. Emelina Navarro INR GUIDELINES SEE BELOW Normal [facility] Comment on above: Result Comment: WENDY RED INR: 2.0 - 3.0 CONDITIONS NOT LISTED BELOW 2.5 - 3.5 FOR PROSTHETIC HEART VALVE REPLACEMENT 2.5 - 3.5 RECURRENT THROMBOSIS Performed By: #### P T ####[facility] Hqjvzzdhap[address] [place], [place] [address]Dr. Emelina Navarro PT Coag (PPP) [Time] 29.5 s Critically high 9.0-11.6 [facility] Comment on above: Performed By: #### P T ####[facility] Cjvydwctxg7834 [place] [address]Dr. Emelina Navarro TROPONIN, HIGH SENSITIVITYon 05-10-2022 HSTROP 38.3 pg/mL Normal 4.0-76.1 [facility] Comment on above: Result Comment: CUT- OFF POINTS HAVE BEEN ESTABLISHED BASED ON THE FOURTH UNIVERSAL DEFINITIONS OF MYOCARDIALINFARCTION. THE UPPER REFERENCE LIMIT (URL) OF TROPONIN, DEFINED THE 99TH PERCENTILE OFcTnI DISTRIBUTION IN A REFERENCE POPULATION, HAS BEEN CONFIRMED THE DECISION THRESHOLDFOR RI DIAGNOSIS. Performed By: #### C MP, HSTROPN, CRP ####[facility] Zqugxeqmbi7265 [place] [address]DrWesley Navarro CBC AUTO DIFFon 05-09-2022 BASO # 0.0 103/ul Normal 0.0-0.1 [facility] Comment on above: Performed By: #### C BC ####[facility] Oelewjqiel5532 [place] [address]Dr. Emelina Navarro Basophils/100 WBC (Bld) 0.1 % Critically low 0.2-2.0 [facility] Comment on above: Performed By: #### C BC ####[facility] Aeiqnbpzbd[address] [place], [place] [address]Dr. Emelina Navarro EO # 0.0 103/ul Normal 0.0-0.7 [facility] Comment on above: Performed By: #### C BC ####[facility] Iplpcnzwao[address] [place], [place] [address]Dr. Emelina Navarro Eosinophils/100 WBC (Bld) 0.0 % Critically low 0.9-7.0 [facility] Comment on above: Performed By: #### C BC ####[facility] Nykhlmsnbz3[address] [place], [place] [address]Dr. Emelina Navarro Erythrocyte distribution width (RBC) [Ratio] 15.9 % Critically high 11.0-15.0 [facility] Comment on above: Performed By: #### C BC ####[facility] Ojvorwhbjf85[address] [place], [place] [address]Dr. Emelina Navarro Hematocrit (Bld) [Volume fraction] 42.7 % Normal 42.0-54.0 [facility] Comment on above: Performed By: #### C BC ####[facility] Ymeagbilag[address] [place], [place] [address]Dr. Emelina Navarro Hemoglobin (Bld) [Mass/Vol] 13.5 g/dL Critically low 14.0-18.0 [facility] Comment on above: Performed By: #### C BC ####[facility] Hwwwaiprrf[address] [place], [place] [address]Dr. Emelina Navarro IG # 0.14 10e3/ul Critically high 0.00-0.03 [facility] Comment on above: Performed By: #### C BC ####[facility] Vcojcmwkjv[address] [place], [place] [address]Dr. Emelina Navarro IG % 0.8 % Critically high 0.0-0.5 [facility] Comment on above: Performed By: #### C BC ####[facility] Vldulbxytt0774 [place] [address]DrWesley Navarro LYMPH # 1.1 103/ul Critically low 1.2-3.8 [facility] Comment on above: Performed By: #### C BC ####[facility] Clzbvjhnfr0139 [place] [address]DrWesley Navarro Lymphocytes/100 WBC (Bld) 6.2 % Critically low 20.5-60.0 [facility] Comment on above: Performed By: #### C BC ####[facility] [address] [place], [place] [address]DrWesley Navarro MANUAL DIFF REQ NO Normal [facility] Comment on above: Performed By: #### C BC ####[facility] Veckmghtuh[address] [place], [place] [address]DrWesley Navarro MCH (RBC) [Entitic mass] 28.5 pg Normal 25.9-34.0 [facility] Comment on above: Performed By: #### C BC ####[facility] Pskwsdgatw[address] [place], [place] [address]DrWesley Navarro MCHC (RBC) [Mass/Vol] 31.6 g/dL Normal 29.9-35.2 [facility] Comment on above: Performed By: #### C BC ####[facility] Uksluourde[address] [place], [place] [address]DrWesley Navarro MCV (RBC) [Entitic vol] 90.3 fL Normal 80.0-94.0 [facility] Comment on above: Performed By: #### C BC ####[facility] Einqhwdllp[address] [place], [place] [address]DrWesley Navarro MONO # 0.4 103/ul Normal 0.3-0.8 [facility] Comment on above: Performed By: #### C BC ####[facility] Ayszinajzt[address] [place], [place] [address]DrWesley Navarro Monocytes/100 WBC (Bld) 2.1 % Normal 1.7-12.0 [facility] Comment on above: Performed By: #### C BC ####[facility] Hezifsybml0239 [place] [address]Dr. Emelina Navarro NEUT # 16.2 103/ul Critically high 1.4-6.5 [facility] Comment on above: Performed By: #### C BC ####[facility] Zfknpehrzl1831 [place] [address]Dr. Emelina Navarro Neutrophils/100 WBC (Bld) 90.8 % Critically high 43.0-75.0 [facility] Comment on above: Performed By: #### C BC ####[facility] Xqelbhzsyk1511 [place] [address]Dr. Emelina Navarro Platelet mean volume (Bld) [Entitic vol] 10.2 fL Normal 9.5-13.5 [facility] Comment on above: Performed By: #### C BC ####[facility] Kydszdzoae5687 [place] [address]Dr. Emelina Navarro PLT 215 103/ul Normal 150-450 [facility] Comment on above: Performed By: #### C BC ####[facility] Nzosfafjbv8[address] [place], [place] [address]Dr. Emelina Navarro RBC 4.73 106/ul Normal 4.70-6.10 [facility] Comment on above: Performed By: #### C BC ####[facility] Nhkqulsrry4210 [place] [id number]. Emelina Navarro WBC 17.8 103/ul Critically high 4.0-11.0 [facility] Comment on above: Performed By: #### C BC ####[facility] Buivkviwlx0872 [place] [address]Dr. Emelina Navarro CRPon 05-09-2022 CRP 4.4 mg/dL Critically high <=1.0 [facility] Comment on above: Performed By: #### C MP, HSTROPN, CRP ####[facility] Nbvhkgjo[address] [place], [place] [address]Dr. Emelina Navarro DIGOXINon 05-09-2022 DIG 1.3 ng/mL Normal 0.9-2.0 [facility] Comment on above: Performed By: #### D IG ####[facility] Sramqcuukh7958 [place] [address]Dr. Emelina Navarro POINT OF CARE GLUCOSEon 04-20 Glucose [Mass/Vol] 319 mg/dL Critically high -106 [facility] Comment on above: Performed By: #### P OCGLUC ####[facility] Sknprjcagg9237 [place] [address]Dr. Emelina Navarro Glucose [Mass/Vol] 259 mg/dL Critically high -106 [facility] Comment on above: Performed By: #### P OCGLUC ####[facility] Epxkqupswq1670 [place] [address]Dr. Emelina Navarro Glucose [Mass/Vol] 564 mg/dL Critically high -106 [facility] Comment on above: Result Comment: NURS E NOTIFIED Performed By: #### P OCGLUC ####[facility] Dzrqsigmtw7504 [place] [address]Dr. Emelina Navarro PROF 14(COMP METB)on 022 Albumin [Mass/Vol] 3.1 g/dL Critically low 3.4-5.0 [facility] Comment on above: Performed By: #### C MP, HSTROPN, CRP ####[facility] Hsabisynxt3965 [place] [address]Dr. Emelnia Navarro Albumin/Globulin [Mass ratio] 0.7 {ratio} Normal [facility] Comment on above: Performed By: #### C MP, HSTROPN, CRP ####[facility] Fkyfttdvqk8678 [place] [address]Dr. Emelina Navarro ALP [Catalytic activity/Vol] 102 U/L Normal 46-116 [facility] Comment on above: Performed By: #### C MP, HSTROPN, CRP ####[facility] Nivhewznxa2788 [place] [address]Dr. Yilan Navarro ALT [Catalytic activity/Vol] 81 U/L Critically high 16-63 [facility] Comment on above: Performed By: #### C MP, HSTROPN, CRP ####[facility] Uqgmdarxmf5937 [place] [address]Dr. Emelina Navarro Anion gap [Moles/Vol] 12.3 mmol/L Normal [facility] Comment on above: Performed By: #### C MP, HSTROPN, CRP ####[facility] Fgiqwjeuup4917 [place] [address]Dr. Emelina Navarro AST [Catalytic activity/Vol] 22 U/L Normal 15-37 [facility] Comment on above: Performed By: #### C MP, HSTROPN, CRP ####[facility] Ghrlqwnwtt[address] [place], [place] [address]Dr. Emelina Navarro Bilirubin [Mass/Vol] 0.6 mg/dL Normal 0.2-1.0 [facility] Comment on above: Performed By: #### C MP, HSTROPN, CRP ####[facility] Ruzqooamrr[address] [place], [place] [address]Dr. Emelina Navarro Calcium [Mass/Vol] 8.6 mg/dL Normal 8.5-10.1 [facility] Comment on above: Performed By: #### C MP, HSTROPN, CRP ####[facility] Hkqlwdywjn5053 [place] [address]Dr. Emelina Navarro Chloride [Moles/Vol] 100 mmol/L Normal 98-107 [facility] Comment on above: Performed By: #### C MP, HSTROPN, CRP ####[facility] Vcruloavxr4891 [place] [address]Dr. Emelina Navarro CO2 [Moles/Vol] 28.4 mmol/L Normal 21.0-32.0 [facility] Comment on above: Performed By: #### C MP, HSTROPN, CRP ####[facility] Awtpchvunp2985 [place] [address]Dr. Emelina Navarro Creatinine [Mass/Vol] 1.91 mg/dL Critically high 0.70-1.30 [facility] Comment on above: Performed By: #### C MP, HSTROPN, CRP ####[facility] Fxiykwtkmi3745 [place] [address]Dr. Yilan Navarro EGFR-AF [place] 43 mL/min/1.73m2 Critically low >=60 [facility] Comment on above: Performed By: #### C MP, HSTROPN, CRP ####[facility] Jxrpcnwqlm1140 [place] [address]Dr. Yilan Navarro EGFR-NON AF [place] 35 mL/min/1.73m2 Critically low >=60 [facility] Comment on above: Performed By: #### C MP, HSTROPN, CRP ####[facility] Ewlivclruk6258 [place] [address]Dr. Awildalan Navarro Globulin (S) [Mass/Vol] 4.6 g/dL Normal [facility] Comment on above: Performed By: #### C MP, HSTROPN, CRP ####[facility] Cgidsiymwk4211 [place] [address]Dr. Awildalan Navarro Glucose [Mass/Vol] 242 mg/dL Critically high 74-106 [facility] Comment on above: Performed By: #### C MP, HSTROPN, CRP ####[facility] Imjcidcjph7386 [place] [address]Dr. Awildalan Navarro Potassium [Moles/Vol] 4.7 mmol/L Normal 3.5-5.1 [facility] Comment on above: Performed By: #### C MP, HSTROPN, CRP ####[facility] Xvdwvdegbr0985 [place] [address]Dr. Yilan Navarro Protein [Mass/Vol] 7.7 g/dL Normal 6.4-8.2 [facility] Comment on above: Performed By: #### C MP, HSTROPN, CRP ####[facility] Rwqevjhjfs7112 [place] [address]Dr. Awildalan Navarro Sodium [Moles/Vol] 136 mmol/L Normal 136-145 [facility] Comment on above: Performed By: #### C MP, HSTROPN, CRP ####[facility] Corgditmde1180 [place] [address]Dr. Emelina Navarro Urea nitrogen [Mass/Vol] 48.0 mg/dL Critically high 7.0-18.0 [facility] Comment on above: Performed By: #### C MP, HSTROPN, CRP ####[facility] Ldarjuanrb5832 [place] [address]Dr. Emelina Navarro Urea nitrogen/Creatinine [Mass ratio] 25.1 mg/mg Normal [facility] Comment on above: Performed By: #### C MP, HSTROPN, CRP ####[facility] Ytwryluqee9444 [place] [address]Dr. Emelina Navarro PROTIMEon 05-09-2022 INR Coag (PPP) [Relative time] 2.59 {INR} Normal [facility] Comment on above: Performed By: #### P T ####[facility] Awctpuyudd[address] [place], [place] [address]Dr. Emelina Navarro INR GUIDELINES SEE BELOW Normal [facility] Comment on above: Result Comment: WENDY RED INR: 2.0 - 3.0 CONDITIONS NOT LISTED BELOW 2.5 - 3.5 FOR PROSTHETIC HEART VALVE REPLACEMENT 2.5 - 3.5 RECURRENT THROMBOSIS Performed By: #### P T ####[facility] Xyxgdjxjxm3928 [place] [address]Dr. Emelina Navarro PT Coag (PPP) [Time] 26.3 s Critically high 9.0-11.6 [facility] Comment on above: Performed By: #### P T ####[facility] Zxggwfwsbp8456 [place] [address]Dr. Emelina Navarro TROPONIN, HIGH SENSITIVITYon 05-09-2022 HSTROP 45.4 pg/mL Normal 4.0-76.1 [facility] Comment on above: Result Comment: CUT- OFF POINTS HAVE BEEN ESTABLISHED BASED ON THE FOURTH UNIVERSAL DEFINITIONS OF MYOCARDIALINFARCTION. THE UPPER REFERENCE LIMIT (URL) OF TROPONIN, DEFINED THE 99TH PERCENTILE OFcTnI DISTRIBUTION IN A REFERENCE POPULATION, HAS BEEN CONFIRMED THE DECISION THRESHOLDFOR RI DIAGNOSIS. Performed By: #### C MP, HSTROPN, CRP ####[facility] Ttlftdgmty2368 [place] [id number]. Emelina Navarro XR FOOT RT MIN 3 VIEWSon 2 XR FOOT RT MIN 3 VIEWS Normal [facility] CARDIAC IMTIAZ 3-6on 2 CK [Catalytic activity/Vol] 34 U/L Critically low 39-308 [facility] Comment on above: Performed By: #### C MREP ####[facility] Ywpcaqhcuh6923 [place] [address]Dr. Emelina Navarro CK.MB [Mass/Vol] 3.37 ng/mL Normal <=3.60 [facility] Comment on above: Performed By: #### C MREP ####[facility] Guidcieuza0479 [place] [address]Dr. Emelina Navarro HSTROP 53.5 pg/mL Normal 4.0-76.1 [facility] Comment on above: Result Comment: CUT- OFF POINTS HAVE BEEN ESTABLISHED BASED ON THE FOURTH UNIVERSAL DEFINITIONS OF MYOCARDIALINFARCTION. THE UPPER REFERENCE LIMIT (URL) OF TROPONIN, DEFINED THE 99TH PERCENTILE OFcTnI DISTRIBUTION IN A REFERENCE POPULATION, HAS BEEN CONFIRMED THE DECISION THRESHOLDFOR RI DIAGNOSIS. Performed By: #### C MREP ####[facility] Kecazgkink8243 [place] [address]Dr. Emelina Navarro CK [Catalytic activity/Vol] 39 U/L Normal 39-308 [facility] Comment on above: Performed By: #### C MREP ####[facility] Ptbakwkmba8302 [place] [address]Dr. Emelina Navarro CK.MB [Mass/Vol] 2.74 ng/mL Normal <=3.60 [facility] Comment on above: Performed By: #### C MREP ####[facility] Owakzebsxm0371 [place] [address]Dr. Emelina Navarro HSTROP 68.7 pg/mL Normal 4.0-76.1 [facility] Comment on above: Result Comment: CUT- OFF POINTS HAVE BEEN ESTABLISHED BASED ON THE FOURTH UNIVERSAL DEFINITIONS OF MYOCARDIALINFARCTION. THE UPPER REFERENCE LIMIT (URL) OF TROPONIN, DEFINED THE 99TH PERCENTILE OFcTnI DISTRIBUTION IN A REFERENCE POPULATION, HAS BEEN CONFIRMED THE DECISION THRESHOLDFOR RI DIAGNOSIS. Performed By: #### C MREP ####[facility] Mhhschjgac7335 [place] [address]Dr. Emelina Ramon CARDIAC IMTIAZ ADMITon 022 CK [Catalytic activity/Vol] 30 U/L Critically low 39-308 [facility] Comment on above: Performed By: #### SHIVAM Mcgee MP ####[facility] Ggwoxvxuwi3653 [place] [address]Dr. Emelina Navarro CK.MB [Mass/Vol] 2.88 ng/mL Normal <=3.60 [facility] Comment on above: Performed By: #### SHIVAM Mcgee MP ####[facility] Ztynlhdint[address] [place], [place] [address]Dr. Awildanitza Navarro HSTROP 69.9 pg/mL Normal 4.0-76.1 [facility] Comment on above: Result Comment: CUT- OFF POINTS HAVE BEEN ESTABLISHED BASED ON THE FOURTH UNIVERSAL DEFINITIONS OF MYOCARDIALINFARCTION. THE UPPER REFERENCE LIMIT (URL) OF TROPONIN, DEFINED THE 99TH PERCENTILE OFcTnI DISTRIBUTION IN A REFERENCE POPULATION, HAS BEEN CONFIRMED THE DECISION THRESHOLDFOR RI DIAGNOSIS. Performed By: #### SHIVAM Mcgee MP ####[facility] Adlocilvvq0486 [place] [address]Dr. Emelina Navarro URBANO 79 ng/mL Normal 16-96 [facility] Comment on above: Performed By: #### SHIVAM Mcgee MP ####[facility] Nfjbvbnrze9741 [place] [address]Dr. Emelina Navarro CBC AUTO DIFFon 05-08-2022 BASO # 0.0 103/ul Normal 0.0-0.1 [facility] Comment on above: Performed By: #### C BC ####[facility] Lplademsjq9207 [place] [address]Dr. Emelina Navarro Basophils/100 WBC (Bld) 0.2 % Normal 0.2-2.0 [facility] Comment on above: Performed By: #### C BC ####[facility] Akqoonlyka4149 [place] [phone]. Emelina Navarro EO # 0.2 103/ul Normal 0.0-0.7 [facility] Comment on above: Performed By: #### C BC ####[facility] Ogckltwznm1533 [place] [phone]. Emelina Navarro Eosinophils/100 WBC (Bld) 1.3 % Normal 0.9-7.0 [facility] Comment on above: Performed By: #### C BC ####[facility] Ieezaehylr4392 [place] [address]Dr. Emelina Navarro Erythrocyte distribution width (RBC) [Ratio] 16.2 % Critically high 11.0-15.0 [facility] Comment on above: Performed By: #### C BC ####[facility] Tknfdsxlik[address] [place], [place] [address]Dr. Emelina Navarro Hematocrit (Bld) [Volume fraction] 43.8 % Normal 42.0-54.0 [facility] Comment on above: Performed By: #### C BC ####[facility] Gokjnhdflc4439 [place] [address]Dr. Emelina Navarro Hemoglobin (Bld) [Mass/Vol] 13.9 g/dL Critically low 14.0-18.0 [facility] Comment on above: Performed By: #### C BC ####[facility] Kqbzvuhibt4156 [place] [phone]. Emelina Navarro IG # 0.17 10e3/ul Critically high 0.00-0.03 [facility] Comment on above: Performed By: #### C BC ####[facility] Yzhmfimgby9059 [place] [phone]. Emelina Navarro IG % 1.0 % Critically high 0.0-0.5 [facility] Comment on above: Performed By: #### C BC ####[facility] Pwpmxqipdq[address] [place], [place] [address]Dr. Emelina Navarro LYMPH # 1.1 103/ul Critically low 1.2-3.8 [facility] Comment on above: Performed By: #### C BC ####[facility] Fuvpjztzto4396 [place] [phone]. Emelina Ramon Lymphocytes/100 WBC (Bld) 6.5 % Critically low 20.5-60.0 [facility] Comment on above: Performed By: #### C BC ####[facility] Jkajbxqjni0086 [place] [phone]. Emelina Navarro MANUAL DIFF REQ NO Normal [facility] Comment on above: Performed By: #### C BC ####[facility] Yysjwaptya1913 [place] [phone]. Awildanitza Navarro MCH (RBC) [Entitic mass] 28.8 pg Normal 25.9-34.0 [facility] Comment on above: Performed By: #### C BC ####[facility] H[address]zlr[address] [place], [place] [id number]. Emelina Navarro MCHC (RBC) [Mass/Vol] 31.7 g/dL Normal 29.9-35.2 [facility] Comment on above: Performed By: #### C BC ####[facility] Cailnmwysq[address] [place], [place] [id number]. Awildanitza Navarro MCV (RBC) [Entitic vol] 90.9 fL Normal 80.0-94.0 [facility] Comment on above: Performed By: #### C BC ####[facility] Todjpmngfn7058 [place] [phone]. Emelina Navarro MONO # 1.4 103/ul Critically high 0.3-0.8 [facility] Comment on above: Performed By: #### C BC ####[facility] Cdnalojpdy[address] [place], [place] [id number]. Emelina Navarro Monocytes/100 WBC (Bld) 8.5 % Normal 1.7-12.0 [facility] Comment on above: Performed By: #### C BC ####[facility] Qpibtszsuw[address] [place], [place] [id number]. Emelina Navarro NEUT # 13.9 103/ul Critically high 1.4-6.5 [facility] Comment on above: Performed By: #### C BC ####[facility] Myygpzuyqh4107 [place], [place] [address]Vg. Emelina Navarro Neutrophils/100 WBC (Bld) 82.5 % Critically high 43.0-75.0 [facility] Comment on above: Performed By: #### C BC ####[facility] Dkrignibjs8979 [place] [phone]. Emelina Navarro Platelet mean volume (Bld) [Entitic vol] 9.8 fL Normal 9.5-13.5 [facility] Comment on above: Performed By: #### C BC ####[facility] Xjyoxvsrag5386 [place] [phone]. Emelina Navarro PLT 214 103/ul Normal 150-450 [facility] Comment on above: Performed By: #### C BC ####[facility] Pylxkatwnt8535 [place] [phone]. Emelina Navarro RBC 4.82 106/ul Normal 4.70-6.10 [facility] Comment on above: Performed By: #### C BC ####[facility] Ajrdraltwg0537 [place], [place] [address]Nt. Emelina Navarro WBC 16.8 103/ul Critically high 4.0-11.0 [facility] Comment on above: Performed By: #### C BC ####[facility] Osawlxhgne7422 [place] [phone]. Emelina Navarro CRPon 05-08-2022 CRP 2.5 mg/dL Critically high <=1.0 [facility] Comment on above: Performed By: #### C RP ####[facility] Xpsrudxkii0354 [place] [phone]. Emelina Navarro Covid-19 PCR (CVDTBH)on 04-20 SARS-CoV-2 (COVID-19) RNA RADHA+probe Ql (Unsp spec) Detected Critically abnormal NOT DETECTED [facility] Comment on above: Result Comment: This test is not yet approved or cleared by the [place] FDA. When there are no FDA-approved or cleared tests available, and other criteria are met, FDA can make tests available under an emergency access mechanism called an Emergency Use Authorization (EUA). The EUA for this test is supported by the Van of Health and Human Service's declaration that [...] be used). Performed By: #### C VDTBH ####[facility] Crjlonjdwk1590 [place] [address]Dr. Emelina Navarro DIGOXINon 05-08-2022 DIG 0.9 ng/mL Normal 0.9-2.0 [facility] Comment on above: Performed By: #### D IG ####[facility] Hrycywpxcc[address] [place], [place] [address]Dr. Emelina Navarro LACTATE/LACTIC ACIDon 2021 Lactate [Moles/Vol] 1.6 mmol/L Normal 0.4-1.9 [facility] Comment on above: Performed By: #### L ACT ####[facility] Nanuqztqmv06[address] [place], [place] [address]Dr. Emelina Navarro Lactate [Moles/Vol] 1.3 mmol/L Normal 0.4-1.9 [facility] Comment on above: Performed By: #### L ACT ####[facility] Hbyuwevmxm45[address] [place], [place] [address]Dr. Emelina Navarro POINT OF CARE GLUCOSEon 04-20 Glucose [Mass/Vol] 244 mg/dL Critically high 74-106 [facility] Comment on above: Performed By: #### P OCGLUC ####[facility] Ztaspeuafy[address] [place], [place] [address]Dr. Emelina Navarro Glucose [Mass/Vol] 405 mg/dL Critically high -106 [facility] Comment on above: Performed By: #### P OCGLUC ####[facility] Ucafhavnip[address] [place], [place] [address]Dr. Emelina Navarro Glucose [Mass/Vol] 352 mg/dL Critically high 74-106 [facility] Comment on above: Performed By: #### P OCGLUC ####[facility] Rocolkccwl3099 [place] [address]Dr. Emelina Navarro Glucose [Mass/Vol] 285 mg/dL Critically high 74-106 [facility] Comment on above: Performed By: #### P OCGLUC ####[facility] Mefmebhipe6[address] [place], [place] [address]Dr. Emelina Navarro PROF CHEM 8 (BAS METB)on Anion gap [Moles/Vol] 13.7 mmol/L Normal [facility] Comment on above: Performed By: #### B MP ####[facility] Gojearipmd39[address] [place], [place] [address]Dr. Emelina Navarro Calcium [Mass/Vol] 8.4 mg/dL Critically low 8.5-10.1 [facility] Comment on above: Performed By: #### B MP ####[facility] Cumpypmdgy65[address] [place], [place] [address]Dr. Emelina Navarro Chloride [Moles/Vol] 93 mmol/L Critically low 98-107 [facility] Comment on above: Performed By: #### B MP ####[facility] Rorakcgmug16[address] [place], [place] [address]Dr. Emelina Navarro CO2 [Moles/Vol] 26.4 mmol/L Normal 21.0-32.0 [facility] Comment on above: Performed By: #### B MP ####[facility] Tcjuyeurhg[address] [place], [place] [address]Dr. Emelina Navarro Creatinine [Mass/Vol] 2.23 mg/dL Critically high 0.70-1.30 [facility] Comment on above: Performed By: #### B MP ####[facility] Kjpcjpdmok[address] [place], [place] [address]Dr. Emelina Navarro EGFR-AF [place] 36 mL/min/1.73m2 Critically low >=60 [facility] Comment on above: Performed By: #### B MP ####[facility] Lrixkvioto19[address] [place], [place] [address]Dr. Emelina Navarro EGFR-NON AF [place] 30 mL/min/1.73m2 Critically low >=60 [facility] Comment on above: Performed By: #### B MP ####[facility] Apwsyuordr2567 [place] [phone]. Emelina Navarro Glucose [Mass/Vol] 451 mg/dL Critically high 74-106 [facility] Comment on above: Performed By: #### B MP ####[facility] Ipclgymjja9209 [place] [phone]. Emelina Navarro Potassium [Moles/Vol] 5.1 mmol/L Normal 3.5-5.1 [facility] Comment on above: Performed By: #### B MP ####[facility] Scwkdiqjmf1175 [place] [address]Dr. Emelina Navarro Sodium [Moles/Vol] 128 mmol/L Critically low 136-145 [facility] Comment on above: Performed By: #### B MP ####[facility] Aweysjpzrh3733 [place] [phone]. Emelina Navarro Urea nitrogen [Mass/Vol] 40.0 mg/dL Critically high 7.0-18.0 [facility] Comment on above: Performed By: #### B MP ####[facility] Nqokvgyhpi3138 [place] [phone]. Emelina Navarro Urea nitrogen/Creatinine [Mass ratio] 17.9 mg/mg Normal [facility] Comment on above: Performed By: #### B MP ####[facility] Vjsulzumhw3226 [place] [phone]. Emelina Navarro Anion gap [Moles/Vol] 13.7 mmol/L Normal [facility] Comment on above: Performed By: #### B VICTORINA, CMADM ####[facility] Ozxsewvdye6695 [place] [phone]. Emelina Navarro Calcium [Mass/Vol] 8.5 mg/dL Normal 8.5-10.1 [facility] Comment on above: Performed By: #### B VICTORINA, CMADM ####[facility] Xxefulzdcb[address] [place], [place] [phone]. Emelina Navarro Chloride [Moles/Vol] 98 mmol/L Normal 98-107 [facility] Comment on above: Performed By: #### B VICTORINA, SHIVAM ####[facility] Hxupiraajs3511 [place] [address]Dr. Emelina Navarro CO2 [Moles/Vol] 25.0 mmol/L Normal 21.0-32.0 [facility] Comment on above: Performed By: #### B VICTORINA, SHIVAM ####[facility] Vimcfhxunv2108 [place] [address]Dr. Emelina Navarro Creatinine [Mass/Vol] 1.97 mg/dL Critically high 0.70-1.30 [facility] [facility] Comment on above: Performed By: #### B VICTORINA, SHIVAM ####[facility] [address]zysweqdeh[address] [place] [address]Dr. Emelina Navarro EGFR-AF EAST [place] 41 mL/min/1.73m2 Critically low >=60 [facility] Comment on above: Performed By: #### B VICTORINA, SHIVAM ####[facility] Qhtjhoccqy[address] [place], [place] [address]Dr. Emelina Navarro EGFR-NON AF EAST [place] 34 mL/min/1.73m2 Critically low >=60 [facility] Comment on above: Performed By: #### B VICTORINA, SHIVAM ####[facility] Zfxgafscvf6365 [place] [address]Dr. Emelina Navarro Glucose [Mass/Vol] 239 mg/dL Critically high 74-106 [facility] Comment on above: Performed By: #### B VICTORINA, CMADM ####[facility] Dartyewvhh[address] [place] [address]Dr. Emelina Navarro Potassium [Moles/Vol] 5.7 mmol/L Critically high 3.5-5.1 [facility] Comment on above: Performed By: #### B VICTORINA, CARRIDM ####[facility] Xosroyapwx3669 [place] [address]Dr. Awildanitza Navarro Sodium [Moles/Vol] 131 mmol/L Critically low 136-145 [facility] Comment on above: Performed By: #### B SHIVAM PRAJAPATI ####[facility] Hainmcectd8154 [place] [id number]. Emelina Navarro Urea nitrogen [Mass/Vol] 37.0 mg/dL Critically high 7.0-18.0 [facility] Comment on above: Performed By: #### B SHIVAM PRAJAPATI ####[facility] Blnmehoywz[address] [place] [address]Dr. Emelina Navarro Urea nitrogen/Creatinine [Mass ratio] 18.8 mg/mg Normal [facility] Comment on above: Performed By: #### B SHIVAM PRAJAPATI ####[facility] Dgbsxgvwcc37[address] [place] [address]Dr. Emelina Navarro PROTIMEon 05-08-2022 INR Coag (PPP) [Relative time] 2.28 {INR} Normal [facility] Comment on above: Performed By: #### P T ####[facility] [address]ntpseylsc[address] [place], [place] [address]Dr. Emelina Navarro INR GUIDELINES SEE BELOW Normal [facility] Comment on above: Result Comment: WENDY RED INR: 2.0 - 3.0 CONDITIONS NOT LISTED BELOW 2.5 - 3.5 FOR PROSTHETIC HEART VALVE REPLACEMENT 2.5 - 3.5 RECURRENT THROMBOSIS Performed By: #### P T ####[facility] Maivdxjlvl[address] [place], [place] [address]Dr. Emelina Navarro PT Coag (PPP) [Time] 23.3 s Critically high 9.0-11.6 [facility] Comment on above: Performed By: #### P T ####[facility] Iwkuwluxjn[address] [place], [place] [address]Dr. Emelina Navarro US FERNY DOP LEG LTon 05-08-20 22 US FERNY DOP LEG LT Normal [facility] XR CHEST 1 Von 05-08-2022 XR CHEST 1 V Normal [facility] CBC AUTO DIFFon 05-02-2022 BASO # 0.0 103/ul Normal 0.0-0.1 [facility] Comment on above: Performed By: #### C BC ####[facility] Xvhjljehil[address] [place], [place] [address]DrWesley Navarro Basophils/100 WBC (Bld) 0.2 % Normal 0.2-2.0 [facility] Comment on above: Performed By: #### C BC ####[facility] Kpnbivcuwb3946 [place] [id number]. Emelina Navarro EO # 0.0 103/ul Normal 0.0-0.7 [facility] Comment on above: Performed By: #### C BC ####[facility] Yilrevqhou24[address] [place], [place] [address]Dr. Emelina Navarro Eosinophils/100 WBC (Bld) 0.2 % Critically low 0.9-7.0 [facility] Comment on above: Performed By: #### C BC ####[facility] Ishzeyqeiz8[address] [place], [place] [address]Dr. Emelina Navarro Erythrocyte distribution width (RBC) [Ratio] 16.5 % Critically high 11.0-15.0 [facility] Comment on above: Performed By: #### C BC ####[facility] Qctlbwrzpd11[address] [place], [place] [address]Dr. Emelina Navarro Hematocrit (Bld) [Volume fraction] 42.0 % Normal 42.0-54.0 [facility] Comment on above: Performed By: #### C BC ####[facility] Opjyfosprj27[address] [place], [place] [address]Dr. Emelina Navarro Hemoglobin (Bld) [Mass/Vol] 13.3 g/dL Critically low 14.0-18.0 [facility] Comment on above: Performed By: #### C BC ####[facility] Eobczwovok[address] [place], [place] [address]Dr. Emelina Navarro IG # 0.14 10e3/ul Critically high 0.00-0.03 [facility] Comment on above: Performed By: #### C BC ####[facility] Gxbankniig[address] [place], [place] [id number]. Emelina Navarro IG % 1.1 % Critically high 0.0-0.5 [facility] Comment on above: Performed By: #### C BC ####[facility] Giggrkuokj3730 [place] [address]Dr. Emelina Ramon LYMPH # 1.3 103/ul Normal 1.2-3.8 [facility] Comment on above: Performed By: #### C BC ####[facility] Epsrqdzplg2113 [place] [address]Dr. Emelina Ramon Lymphocytes/100 WBC (Bld) 9.8 % Critically low 20.5-60.0 [facility] Comment on above: Performed By: #### C BC ####[facility] Brttrigzhr6563 [place] [address]Dr. Emelina Ramon MANUAL DIFF REQ NO Normal [facility] Comment on above: Performed By: #### C BC ####[facility] Hndhacitqx11[address] [place] [address]Dr. Emelina Ramon MCH (RBC) [Entitic mass] 28.9 pg Normal 25.9-34.0 [facility] Comment on above: Performed By: #### C BC ####[facility] Cboyjedxmp[address] [place], [place] [address]Dr. Emelina Navarro MCHC (RBC) [Mass/Vol] 31.7 g/dL Normal 29.9-35.2 [facility] Comment on above: Performed By: #### C BC ####[facility] Jdkrpsaorg2192 [place] [address]Dr. Emelina Ramon MCV (RBC) [Entitic vol] 91.1 fL Normal 80.0-94.0 [facility] Comment on above: Performed By: #### C BC ####[facility] Ubidcncuza5580 [place] [address]Dr. Emelina Ramon MONO # 1.2 103/ul Critically high 0.3-0.8 [facility] Comment on above: Performed By: #### C BC ####[facility] Xzsegezuwz[address] [place], [place] [address]Dr. Emelina Ramon Monocytes/100 WBC (Bld) 9.6 % Normal 1.7-12.0 [facility] Comment on above: Performed By: #### C BC ####[facility] Ljaooxahvb5964 [place] [phone]. Emelina Navarro NEUT # 10.1 103/ul Critically high 1.4-6.5 [facility] Comment on above: Performed By: #### C BC ####[facility] Aitmmmmkuh7297 [place] [phone]. Emelina Navarro Neutrophils/100 WBC (Bld) 79.1 % Critically high 43.0-75.0 [facility] Comment on above: Performed By: #### C BC ####[facility] Viiubiuwvt6054 [place] [phone]. Emelina Navarro Platelet mean volume (Bld) [Entitic vol] 10.0 fL Normal 9.5-13.5 [facility] Comment on above: Performed By: #### C BC ####[facility] Pgobvwvxmv8923 [place] [address]Dr. Emelina Navarro PLT 188 103/ul Normal 150-450 [facility] Comment on above: Performed By: #### C BC ####[facility] Qgprdzstif4550 [place] [phone]. Emelina Navarro RBC 4.61 106/ul Critically low 4.70-6.10 [facility] Comment on above: Performed By: #### C BC ####[facility] Hoshxrhryr7764 [place] [address]Dr. Emelina Navarro WBC 12.8 103/ul Critically high 4.0-11.0 [facility] Comment on above: Performed By: #### C BC ####[facility] Iegxlodaky7404 [place] [phone]. Emelina Navarro NM HEPATOBILIARY SCAN W EFon 05-02-2022 NM HEPATOBILIARY SCAN W EF Normal [facility] PROF 14(COMP METB)on 022 Albumin [Mass/Vol] 2.7 g/dL Critically low 3.4-5.0 [facility] Comment on above: Performed By: #### C MP ####[facility] Zrjclhetqm6205 [place] [address]Dr. Emelina Navarro Albumin/Globulin [Mass ratio] 0.7 {ratio} Normal [facility] Comment on above: Performed By: #### C MP ####[facility] Gtsbgaqwhr5504 [place] [address]Dr. Emelina Navarro ALP [Catalytic activity/Vol] 65 U/L Normal 46-116 [facility] Comment on above: Performed By: #### C MP ####[facility] Ocsqccakfp5023 [place] [address]Dr. Emelina Navarro ALT [Catalytic activity/Vol] 406 U/L Critically high 16-63 [facility] Comment on above: Performed By: #### C MP ####[facility] Uhmnktmqqd2225 [place] [address]Dr. Emelina Ramon Anion gap [Moles/Vol] 8.1 mmol/L Normal [facility] Comment on above: Performed By: #### C MP ####[facility] Vkioyzanwz[address] [place], [place] [address]Dr. Emelina Ramon AST [Catalytic activity/Vol] 101 U/L Critically high 15-37 [facility] Comment on above: Performed By: #### C MP ####[facility] Obzqtkjnvj[address] [place], [place] [address]Dr. Emelina Ramon Bilirubin [Mass/Vol] 0.6 mg/dL Normal 0.2-1.0 [facility] Comment on above: Performed By: #### C MP ####[facility] Jdmhgpvapx[address] [place], [place] [address]Dr. Awildanitza Ramon Calcium [Mass/Vol] 7.7 mg/dL Critically low 8.5-10.1 [facility] Comment on above: Performed By: #### C MP ####[facility] Lfauvwsecs9[address] [place] [address]Dr. Emelina Navarro Chloride [Moles/Vol] 104 mmol/L Normal 98-107 [facility] Comment on above: Performed By: #### C MP ####[facility] Pkrrbrmlvc7100 [place] [address]Dr. Emelina Navarro CO2 [Moles/Vol] 30.9 mmol/L Normal 21.0-32.0 [facility] Comment on above: Performed By: #### C MP ####[facility] Nvlhiztwzn6372 [place] [phone]. Emelina Navarro Creatinine [Mass/Vol] 1.54 mg/dL Critically high 0.70-1.30 [facility] Comment on above: Performed By: #### C MP ####[facility] Nzvifdromq7451 [place] [phone]. Emelina Navarro EGFR-AF E[place] 55 mL/min/1.73m2 Critically low >=60 [facility] Comment on above: Performed By: #### C MP ####[facility] Fioozsices3076 [place] [phone]. Emelina Navarro EGFR-NON AF [place] 45 mL/min/1.73m2 Critically low >=60 [facility] Comment on above: Performed By: #### C MP ####[facility] Oyqbtbbilt2411 [place] [address]Dr. Emelina Navarro Globulin (S) [Mass/Vol] 3.8 g/dL Normal [facility] Comment on above: Performed By: #### C MP ####[facility] Ssophddykz6229 [place] [address]Dr. Emelina Navarro Glucose [Mass/Vol] 177 mg/dL Critically high 74-106 [facility] Comment on above: Performed By: #### C MP ####[facility] Auiagwaivu4[address] [place] [address]Dr. Emelina Navarro Potassium [Moles/Vol] 4.0 mmol/L Normal 3.5-5.1 [facility] Comment on above: Performed By: #### C MP ####[facility] Yjrrlxyuec6901 [place] [address]Dr. Emelina Navarro Protein [Mass/Vol] 6.5 g/dL Normal 6.4-8.2 [facility] Comment on above: Performed By: #### C MP ####[facility] Jlphofjamk3522 [place] [address]Dr. Emelina Navarro Sodium [Moles/Vol] 139 mmol/L Normal 136-145 [facility] Comment on above: Performed By: #### C MP ####[facility] Iknxstdkqq2367 [place] [address]Dr. Emelina Navarro Urea nitrogen [Mass/Vol] 38.0 mg/dL Critically high 7.0-18.0 [facility] Comment on above: Performed By: #### C MP ####[facility] Armohyhcil8[address] [place], [place] [address]Dr. Emelina Navarro Urea nitrogen/Creatinine [Mass ratio] 24.7 mg/mg Normal [facility] Comment on above: Performed By: #### C MP ####[facility] Ztjkotodls[address] [place], [place] [address]Dr. Emelina Navarro PROTIMEon 05-02-2022 INR Coag (PPP) [Relative time] 2.57 {INR} Normal [facility] Comment on above: Performed By: #### P T ####[facility] Btqddpixmv[address] [place], [place] [address]Dr. Emelina Navarro INR GUIDELINES SEE BELOW Normal [facility] Comment on above: Result Comment: WENDY RED INR: 2.0 - 3.0 CONDITIONS NOT LISTED BELOW 2.5 - 3.5 FOR PROSTHETIC HEART VALVE REPLACEMENT 2.5 - 3.5 RECURRENT THROMBOSIS Performed By: #### P T ####[facility] Pgybfdoqyd[address] [place], [place] [address]Dr. Emelina Navarro PT Coag (PPP) [Time] 26.1 s Critically high 9.0-11.6 [facility] Comment on above: Performed By: #### P T ####[facility] Czenrdgenw[address] [place], [place] [address]Dr. Emelina Navarro CBC AUTO DIFFon 05-01-2022 BASO # 0.0 103/ul Normal 0.0-0.1 [facility] Comment on above: Performed By: #### C BC ####[facility] Knoxgnovsz[address] [place], [place] [address]Dr. Emelina Navarro Basophils/100 WBC (Bld) 0.1 % Critically low 0.2-2.0 [facility] Comment on above: Performed By: #### C BC ####[facility] Kkzfhnkbfq9449 [place] [phone]. Emelina Navarro EO # 0.0 103/ul Normal 0.0-0.7 [facility] Comment on above: Performed By: #### C BC ####[facility] Vpjpvwzaoo3792 [place] [phone]. Emelina Navarro Eosinophils/100 WBC (Bld) 0.0 % Critically low 0.9-7.0 [facility] Comment on above: Performed By: #### C BC ####[facility] Kwfaaxpugy5462 [place] [phone]. Emelina Navarro Erythrocyte distribution width (RBC) [Ratio] 16.5 % Critically high 11.0-15.0 [facility] Comment on above: Performed By: #### C BC ####[facility] Dooxwirzpc3503 [place] [phone]. Emelina Navarro Hematocrit (Bld) [Volume fraction] 41.5 % Critically low 42.0-54.0 [facility] Comment on above: Performed By: #### C BC ####[facility] Wphfpnkpgl6431 [place] [phone]. Emelina Navarro Hemoglobin (Bld) [Mass/Vol] 13.5 g/dL Critically low 14.0-18.0 [facility] Comment on above: Performed By: #### C BC ####[facility] Flnexegduv6389 [place] [phone]. Emelina Navarro IG # 0.12 10e3/ul Critically high 0.00-0.03 [facility] Comment on above: Performed By: #### C BC ####[facility] Celnfzmctx0824 [place] [phone]. Emelina Navarro IG % 0.7 % Critically high 0.0-0.5 [facility] Comment on above: Performed By: #### C BC ####[facility] Lmmvocuadk4485 [place] [phone]. Emelina Navarro LYMPH # 0.8 103/ul Critically low 1.2-3.8 [facility] Comment on above: Performed By: #### C BC ####[facility] Hyoockgyvg2388 [place] [phone]. Awildanitza Navarro Lymphocytes/100 WBC (Bld) 4.7 % Critically low 20.5-60.0 [facility] Comment on above: Performed By: #### C BC ####[facility] Jjjmrnqkse2905 [place] [phone]. Emelina Navarro MANUAL DIFF REQ NO Normal [facility] Comment on above: Performed By: #### C BC ####[facility] [address] [place], [place] [id number]. Emelina Navarro MCH (RBC) [Entitic mass] 28.9 pg Normal 25.9-34.0 [facility] Comment on above: Performed By: #### C BC ####[facility] Slepldzlua[address] [place], [place] [address]Dr. Emelina Navarro MCHC (RBC) [Mass/Vol] 32.5 g/dL Normal 29.9-35.2 [facility] Comment on above: Performed By: #### C BC ####[facility] Xrccgxydjf15[address] [place], [place] [address]Dr. Emelina Navarro MCV (RBC) [Entitic vol] 88.9 fL Normal 80.0-94.0 [facility] Comment on above: Performed By: #### C BC ####[facility] Pmjespedvu[address] [place], [place] [address]Dr. Emelina Navarro MONO # 1.0 103/ul Critically high 0.3-0.8 [facility] Comment on above: Performed By: #### C BC ####[facility] Twoskfjmbc9[address] [place], [place] [address]Dr. Emelina Navarro Monocytes/100 WBC (Bld) 6.5 % Normal 1.7-12.0 [facility] Comment on above: Performed By: #### C BC ####[facility] Erubwxzqty9073[address] [place], [place] [address]Dr. Emelina Navarro NEUT # 14.1 103/ul Critically high 1.4-6.5 [facility] Comment on above: Performed By: #### C BC ####[facility] Jpesvvvoyh8349 [place] [phone]. Emelina Navarro Neutrophils/100 WBC (Bld) 88.0 % Critically high 43.0-75.0 [facility] Comment on above: Performed By: #### C BC ####[facility] Mmyjlzzlus1747 [place] [phone]. Emelina Navarro Platelet mean volume (Bld) [Entitic vol] 9.9 fL Normal 9.5-13.5 [facility] Comment on above: Performed By: #### C BC ####[facility] Maonzwqotm6582 [place] [phone]. Emelina Navarro PLT 185 103/ul Normal 150-450 [facility] Comment on above: Performed By: #### C BC ####[facility] Znofjglccz9584 [place] [phone]. Awildanitza Navarro RBC 4.67 106/ul Critically low 4.70-6.10 [facility] Comment on above: Performed By: #### C BC ####[facility] Ywmxyrucul9522 [place] [phone]. Emelina Navarro WBC 16.1 103/ul Critically high 4.0-11.0 [facility] Comment on above: Performed By: #### C BC ####[facility] Fuyqqiopxw7675 [place] [phone]. Emelina Navarro LIVER PROFILEon 05-01-2022 Albumin/Globulin [Mass ratio] 0.7 {ratio} Normal [facility] Comment on above: Performed By: #### L IVER ####[facility] Ihqzscmsgw6709 [place] [phone]. Emelina Navarro ALP [Catalytic activity/Vol] 71 U/L Normal 46-116 [facility] Comment on above: Performed By: #### L IVER ####[facility] Fxopkaohtq4986 [place] [phone]. Emelina Navarro ALT [Catalytic activity/Vol] 558 U/L Critically high 16-63 [facility] Comment on above: Performed By: #### L IVER ####[facility] Wyvdbzzmok9[address] [place], [place] [address]Dr. Emelina Navarro AST [Catalytic activity/Vol] 220 U/L Critically high 15-37 [facility] Comment on above: Performed By: #### L IVER ####[facility] Rpyqumnngr[address] [place], [place] [address]Dr. Emelina Navarro BILI, CONJUGATED 0.2 mg/dL Normal 0.0-0.2 [facility] Comment on above: Performed By: #### L IVER ####[facility] Gkzloigxxu60[address] [place], [place] [address]Dr. Emelina Navarro Bilirubin [Mass/Vol] 0.5 mg/dL Normal 0.2-1.0 [facility] Comment on above: Performed By: #### L IVER ####[facility] Goeuzihsgg7388[address] [place], [place] [address]Dr. Emelina Navarro Globulin (S) [Mass/Vol] 3.9 g/dL Normal [facility] Comment on above: Performed By: #### L IVER ####[facility] Xhcazoddgq27[address] [place], [place] [address]Dr. Emelina Navarro Protein [Mass/Vol] 6.8 g/dL Normal 6.4-8.2 [facility] Comment on above: Performed By: #### L IVER ####[facility] Irgqdrpkad19[address] [place], [place] [address]Dr. Emelina Navarro POINT OF CARE GLUCOSEon 04-19 Glucose [Mass/Vol] 205 mg/dL Critically high 74-106 [facility] Comment on above: Performed By: #### P OCGLUC ####[facility] Zkfsdblirp26[address] [place], [place] [address]Dr. Emelina Navarro PROF 14(COMP METB)on 022 Albumin [Mass/Vol] 2.9 g/dL Critically low 3.4-5.0 [facility] Comment on above: Performed By: #### C MP ####[facility] Rzjqqbuzza30[address] [place], [place] [address]Dr. Emelina Navarro Performed By: #### L IVER ####[facility] Fvzgtenmsk0562 [place] [phone]. Emelina Navarro Albumin/Globulin [Mass ratio] 0.8 {ratio} Normal [facility] Comment on above: Performed By: #### C MP ####[facility] Eatsozypjh2850 [place] [address]Dr. Emelina Navarro ALP [Catalytic activity/Vol] 70 U/L Normal 46-116 [facility] Comment on above: Performed By: #### C MP ####[facility] Qbwwdeayhq8146 [place] [address]Dr. Emelina Navarro ALT [Catalytic activity/Vol] 552 U/L Critically high 16-63 [facility] Comment on above: Performed By: #### C MP ####[facility] Djosynhwde00[address] [place], [place] [address]Dr. Emelina Navarro Anion gap [Moles/Vol] 14.2 mmol/L Normal [facility] Comment on above: Performed By: #### C MP ####[facility] Evnpnyhlpv69[address] [place], [place] [address]Dr. Emelina Navarro AST [Catalytic activity/Vol] 214 U/L Critically high 15-37 [facility] Comment on above: Performed By: #### C MP ####[facility] Vgvhulgtfi20[address] [place], [place] [address]Dr. Emelina Navarro Bilirubin [Mass/Vol] 0.6 mg/dL Normal 0.2-1.0 [facility] Comment on above: Performed By: #### C MP ####[facility] Fmgmfgvsiq69[address] [place], [place] [address]Dr. Emelina Navarro Calcium [Mass/Vol] 7.9 mg/dL Critically low 8.5-10.1 [facility] Comment on above: Performed By: #### C MP ####[facility] Aawvcewzdu50[address] [place], [place] [address]Dr. Emelina Navarro Chloride [Moles/Vol] 103 mmol/L Normal 98-107 [facility] Comment on above: Performed By: #### C MP ####[facility] Wrkcytcdnp4956 [place] [id number]. Emelina Navarro CO2 [Moles/Vol] 25.0 mmol/L Normal 21.0-32.0 [facility] Comment on above: Performed By: #### C MP ####[facility] Lgegbzxwxd9998 [place] [id number]. Emelina Navarro Creatinine [Mass/Vol] 1.58 mg/dL Critically high 0.70-1.30 [facility] Comment on above: Performed By: #### C MP ####[facility] Bflqdfgfne1800 [place] [id number]. Emelina Navarro EGFR-AF EAST [place] 53 mL/min/1.73m2 Critically low >=60 [facility] Comment on above: Performed By: #### C MP ####[facility] Gwrythacth2420 [place] [id number]. Emelina Navarro EGFR-NON AF E[place] 44 mL/min/1.73m2 Critically low >=60 [facility] Comment on above: Performed By: #### C MP ####[facility] Ztybllwigg6819 [place] [id number]. Emelina Navarro Globulin (S) [Mass/Vol] 3.8 g/dL Normal [facility] Comment on above: Performed By: #### C MP ####[facility] Uefmszicid7911 [place] [id number]. Emelina Navarro Glucose [Mass/Vol] 267 mg/dL Critically high 74-106 [facility] Comment on above: Performed By: #### C MP ####[facility] Xhkbmhslne6133 [place] [id number]. Emelina Navarro Potassium [Moles/Vol] 3.2 mmol/L Critically low 3.5-5.1 [facility] Comment on above: Performed By: #### C MP ####[facility] Yxxpufnbyw9872 [place] [id number]. Emelina Navarro Protein [Mass/Vol] 6.7 g/dL Normal 6.4-8.2 [facility] Comment on above: Performed By: #### C MP ####[facility] Lcmsucxtmp4642 [place] [address]Dr. Emelina aNvarro Sodium [Moles/Vol] 139 mmol/L Normal 136-145 [facility] Comment on above: Performed By: #### C MP ####[facility] Ylsmiplyhp7559 [place] [address]Dr. Emelina Navarro Urea nitrogen [Mass/Vol] 43.0 mg/dL Critically high 7.0-18.0 [facility] Comment on above: Performed By: #### C MP ####[facility] Efsakaivjd7184 [place] [address]Dr. Emelina Navarro Urea nitrogen/Creatinine [Mass ratio] 27.2 mg/mg Normal [facility] Comment on above: Performed By: #### C MP ####[facility] Znswwsgitl[address] [place], [place] [address]Dr. Emelina Navarro PROTIMEon 05-01-2022 INR Coag (PPP) [Relative time] 2.57 {INR} Normal [facility] Comment on above: Performed By: #### P T ####[facility] Vrdojysbwj[address] [place], [place] [address]Dr. Emelina Navarro INR GUIDELINES SEE BELOW Normal [facility] Comment on above: Result Comment: WENDY RED INR: 2.0 - 3.0 CONDITIONS NOT LISTED BELOW 2.5 - 3.5 FOR PROSTHETIC HEART VALVE REPLACEMENT 2.5 - 3.5 RECURRENT THROMBOSIS Performed By: #### P T ####[facility] Dubfdorncs[address] [place], [place] [address]Dr. Emelina Navarro PT Coag (PPP) [Time] 26.1 s Critically high 9.0-11.6 [facility] Comment on above: Performed By: #### P T ####[facility] Pjzltlnwaq[address] [place], [place] [address]Dr. Emelina Navarro CBC AUTO DIFFon 04-30-2022 BASO # 0.0 103/ul Normal 0.0-0.1 [facility] Comment on above: Performed By: #### C BC ####[facility] Zrrwsumwaw[address] [place], [place] [id number]. Emelina Navarro Basophils/100 WBC (Bld) 0.1 % Critically low 0.2-2.0 [facility] Comment on above: Performed By: #### C BC ####[facility] Yjkubfbxdb044[address] [place] [address]Dr. Emelina Navarro EO # 0.0 103/ul Normal 0.0-0.7 [facility] Comment on above: Performed By: #### C BC ####[facility] Skqcmmydcc[address] [place], [place] [address]Dr. Emelina Navarro Eosinophils/100 WBC (Bld) 0.0 % Critically low 0.9-7.0 [facility] Comment on above: Performed By: #### C BC ####[facility] Uuzhsaiyiu[address] [place], [place] [address]Dr. Emelina Navarro Erythrocyte distribution width (RBC) [Ratio] 16.4 % Critically high 11.0-15.0 [facility] Comment on above: Performed By: #### C BC ####[facility] Pxrnpvudsq[address] [place], [place] [address]Dr. Emelina Navarro Hematocrit (Bld) [Volume fraction] 40.9 % Critically low 42.0-54.0 [facility] Comment on above: Performed By: #### C BC ####[facility] Vtpqmrncwj[address] [place], [place] [address]Dr. Emelina Navarro Hemoglobin (Bld) [Mass/Vol] 13.3 g/dL Critically low 14.0-18.0 [facility] Comment on above: Performed By: #### C BC ####[facility] Tbvqhjaomb[address] [place], [place] [address]Dr. Emelina Navarro IG # 0.11 10e3/ul Critically high 0.00-0.03 [facility] Comment on above: Performed By: #### C BC ####[facility] Clfvlwlxca32[address] [place], [place] [address]Dr. Emelina Navarro IG % 0.5 % Normal 0.0-0.5 [facility] Comment on above: Performed By: #### C BC ####[facility] Pnfzjotman6283 [place], [place] [address]Uu. Emelina Ramon LYMPH # 0.8 103/ul Critically low 1.2-3.8 [facility] Comment on above: Performed By: #### C BC ####[facility] Msnirxphwb2459 [place], [place] [address]Gc. Emelina Navarro Lymphocytes/100 WBC (Bld) 3.9 % Critically low 20.5-60.0 [facility] Comment on above: Performed By: #### C BC ####[facility] Tdyuiesddv[address] [place] [id number]. Awildanitza Navarro MANUAL DIFF REQ NO Normal [facility] Comment on above: Performed By: #### C BC ####[facility] Gyfopiumbl7448 [place] [id number]. Emelina Ramon MCH (RBC) [Entitic mass] 29.0 pg Normal 25.9-34.0 [facility] Comment on above: Performed By: #### C BC ####[facility] Jnskufkkum7314 [place] [id number]. Emelina Navarro MCHC (RBC) [Mass/Vol] 32.5 g/dL Normal 29.9-35.2 [facility] Comment on above: Performed By: #### C BC ####[facility] Aydlpmgsoh6487 [place] [id number]. Emelina Ramon MCV (RBC) [Entitic vol] 89.1 fL Normal 80.0-94.0 [facility] Comment on above: Performed By: #### C BC ####[facility] Zjymswpnyz1169 [place] [id number]. Emelina Ramon MONO # 0.9 103/ul Critically high 0.3-0.8 [facility] Comment on above: Performed By: #### C BC ####[facility] Pnvawyarbs6514 [place] [id number]. Emelina Ramon Monocytes/100 WBC (Bld) 4.2 % Normal 1.7-12.0 [facility] Comment on above: Performed By: #### C BC ####[facility] Cqddhnhaiu7784 [place] [id number]. Emelina Navarro NEUT # 18.5 103/ul Critically high 1.4-6.5 [facility] Comment on above: Performed By: #### C BC ####[facility] Ghdhijyljk6696 [place] [id number]. Emelina Navarro Neutrophils/100 WBC (Bld) 91.3 % Critically high 43.0-75.0 [facility] Comment on above: Performed By: #### C BC ####[facility] Xqzncmnkcu6120 [place] [id number]. Emelina Navarro Platelet mean volume (Bld) [Entitic vol] 10.9 fL Normal 9.5-13.5 [facility] Comment on above: Performed By: #### C BC ####[facility] Ihamgzzvne7635 [place] [id number]. Awildanitza Ramon PLT 162 103/ul Normal 150-450 [facility] Comment on above: Performed By: #### C BC ####[facility] Uhbwkbctzp2937 [place] [id number]. Emelina Navarro RBC 4.59 106/ul Critically low 4.70-6.10 [facility] Comment on above: Performed By: #### C BC ####[facility] Ijhglmlbpr8420 [place] [id number]. Emelina Navarro WBC 20.3 103/ul Critically high 4.0-11.0 [facility] Comment on above: Performed By: #### C BC ####[facility] Ypanhgkzga3293 [place] [id number]. Emelina Navarro PROF 14(COMP METB)on 022 Albumin [Mass/Vol] 2.8 g/dL Critically low 3.4-5.0 [facility] Comment on above: Performed By: #### C MP ####[facility] Adtytzzsnk2803 [place] [id number]. Emelina Navarro Albumin/Globulin [Mass ratio] 0.7 {ratio} Normal [facility] Comment on above: Performed By: #### C MP ####[facility] Vzumokuiek8876 [place] [id number]. Emelina Navarro ALP [Catalytic activity/Vol] 65 U/L Normal 46-116 [facility] Comment on above: Performed By: #### C MP ####[facility] Mouyagmsnw0442 [place] [id number]. Emelina Navarro ALT [Catalytic activity/Vol] 467 U/L Critically high 16-63 [facility] Comment on above: Performed By: #### C MP ####[facility] Ltmzqenybc9507 [place] [id number]. Emelina Navarro Anion gap [Moles/Vol] 15.3 mmol/L Normal [facility] Comment on above: Performed By: #### C MP ####[facility] Mtbwmdnvtp8646 [place] [id number]. Emelina Navarro AST [Catalytic activity/Vol] 239 U/L Critically high 15-37 [facility] Comment on above: Performed By: #### C MP ####[facility] Npcrfmawxx9199 [place] [id number]. Emelina Navarro Bilirubin [Mass/Vol] 0.7 mg/dL Normal 0.2-1.0 [facility] Comment on above: Performed By: #### C MP ####[facility] Rshytzzbbs5182 [place] [id number]. Emelina Navarro Calcium [Mass/Vol] 7.9 mg/dL Critically low 8.5-10.1 [facility] Comment on above: Performed By: #### C MP ####[facility] Gxnubjhoct0857 [place] [id number]. Emelina Navarro Chloride [Moles/Vol] 106 mmol/L Normal 98-107 [facility] Comment on above: Performed By: #### C MP ####[facility] Hoqiyqxtzo0701 [place] [id number]. Emelina Navarro CO2 [Moles/Vol] 23.3 mmol/L Normal 21.0-32.0 [facility] Comment on above: Performed By: #### C MP ####[facility] Trldltifck2889 [place] [id number]. Emelina Navarro Creatinine [Mass/Vol] 1.71 mg/dL Critically high 0.70-1.30 [facility] Comment on above: Performed By: #### C MP ####[facility] Ivnpkslmvt8291 [place], [place] [address]Ct. Emelina Navarro EGFR-AF [place] 49 mL/min/1.73m2 Critically low >=60 [facility] Comment on above: Performed By: #### C MP ####[facility] Tqipcjmuff9448 [place] [id number]. Emelina Navarro EGFR-NON AF [place] 40 mL/min/1.73m2 Critically low >=60 [facility] Comment on above: Performed By: #### C MP ####[facility] Vvqdsupiuj0739 [place] [id number]. Emelina Navarro Globulin (S) [Mass/Vol] 3.9 g/dL Normal [facility] Comment on above: Performed By: #### C MP ####[facility] Rlslweftlf1145 [place] [phone]. Emelina Navarro Glucose [Mass/Vol] 233 mg/dL Critically high 74-106 [facility] Comment on above: Performed By: #### C MP ####[facility] Sherqspulo6476 [place] [phone]. Emelina Navarro Potassium [Moles/Vol] 3.6 mmol/L Normal 3.5-5.1 [facility] Comment on above: Performed By: #### C MP ####[facility] Rhbejdghzb5290 [place] [id number]. Emelina Navarro Protein [Mass/Vol] 6.7 g/dL Normal 6.4-8.2 [facility] Comment on above: Performed By: #### C MP ####[facility] Duxydqhrpz9787 [place] [phone]. Emelina Navarro Sodium [Moles/Vol] 141 mmol/L Normal 136-145 [facility] Comment on above: Performed By: #### C MP ####[facility] Rozpagicao0338 [place] [address]Dr. Emelina Ramon Urea nitrogen [Mass/Vol] 46.0 mg/dL Critically high 7.0-18.0 [facility] Comment on above: Performed By: #### C MP ####[facility] Gwqivclsrs[address] [place], [place] [address]Dr. Awildanitza Navarro Urea nitrogen/Creatinine [Mass ratio] 26.9 mg/mg Normal [facility] Comment on above: Performed By: #### C MP ####[facility] Xceaemxwob[address] [place], [place] [address]Dr. Awildanitza Navarro XR CHEST 2 Von 04-30-2022 XR CHEST 2 V Normal [facility] CBC AUTO DIFFon 04-29-2022 BASO # 0.0 103/ul Normal 0.0-0.1 [facility] Comment on above: Performed By: #### C BC ####[facility] Ihwfmsvyjq20[address] [place], [place] [address]Dr. Emelina Navarro Basophils/100 WBC (Bld) 0.1 % Critically low 0.2-2.0 [facility] Comment on above: Performed By: #### C BC ####[facility] Aoinzofnzr8323[address] [place], [place] [address]Dr. Emelina Navarro EO # 0.0 103/ul Normal 0.0-0.7 [facility] Comment on above: Performed By: #### C BC ####[facility] Wbcibyfcxl868[address] [place], [place] [address]Dr. Emelina Navarro Eosinophils/100 WBC (Bld) 0.0 % Critically low 0.9-7.0 [facility] Comment on above: Performed By: #### C BC ####[facility] Urporveqwp3117[address] [place], [place] [address]Dr. Emelina Navarro Erythrocyte distribution width (RBC) [Ratio] 16.2 % Critically high 11.0-15.0 [facility] Comment on above: Performed By: #### C BC ####[facility] Zzpqifyljl0225[address] [place], [place] [address]Dr. Emelina Navarro Hematocrit (Bld) [Volume fraction] 40.6 % Critically low 42.0-54.0 [facility] Comment on above: Performed By: #### C BC ####[facility] Gzxsadedtt4913 [place] [address]Dr. Emelina Navarro Hemoglobin (Bld) [Mass/Vol] 13.2 g/dL Critically low 14.0-18.0 [facility] Comment on above: Performed By: #### C BC ####[facility] Xrflwjszvg5328[address] [place], [place] [address]DrWesley Navarro IG # 0.11 10e3/ul Critically high 0.00-0.03 [facility] Comment on above: Performed By: #### C BC ####[facility] Ytoqnaskqs4989[address] [place], [place] [address]DrWesley Navarro IG % 0.6 % Critically high 0.0-0.5 [facility] Comment on above: Performed By: #### C BC ####[facility] Jrhavsynhd7089[address] [place], [place] [address]DrWesley Navarro LYMPH # 1.1 103/ul Critically low 1.2-3.8 [facility] Comment on above: Performed By: #### C BC ####[facility] Qpyjadpgsl3908[address] [place], [place] [address]DrWesley Navarro Lymphocytes/100 WBC (Bld) 5.6 % Critically low 20.5-60.0 [facility] Comment on above: Performed By: #### C BC ####[facility] Vzsvmccqwj8555[address] [place], [place] [address]DrWesley Navarro MANUAL DIFF REQ NO Normal [facility] Comment on above: Performed By: #### C BC ####[facility] Opysxmnarx2694[address] [place], [place] [address]DrWesley Navarro MCH (RBC) [Entitic mass] 29.1 pg Normal 25.9-34.0 [facility] Comment on above: Performed By: #### C BC ####[facility] Bsnzpfvesz3974[address] [place], [place] [address]DrWesley Navarro MCHC (RBC) [Mass/Vol] 32.5 g/dL Normal 29.9-35.2 [facility] Comment on above: Performed By: #### C BC ####[facility] Hkkixhilxx694[address] [place], [place] [address]DrWesley Emelina Ramon MCV (RBC) [Entitic vol] 89.4 fL Normal 80.0-94.0 [facility] Comment on above: Performed By: #### C BC ####[facility] Wupxxzghzs5983[address] [place], [place] [address]DrWesley Navarro MONO # 0.6 103/ul Normal 0.3-0.8 [facility] Comment on above: Performed By: #### C BC ####[facility] Hmnazftlth8550[address] [place], [place] [address]DrWesley Navarro Monocytes/100 WBC (Bld) 3.2 % Normal 1.7-12.0 [facility] Comment on above: Performed By: #### C BC ####[facility] Mjihljknhh[address] [place], [place] [address]DrWesley Navarro NEUT # 17.4 103/ul Critically high 1.4-6.5 [facility] Comment on above: Performed By: #### C BC ####[facility] Eamuxptbvy5026[address] [place], [place] [address]DrWesley Navarro Neutrophils/100 WBC (Bld) 90.5 % Critically high 43.0-75.0 [facility] Comment on above: Performed By: #### C BC ####[facility] Smtizhhxmn9548[address] [place], [place] [address]DrWesley Navarro Platelet mean volume (Bld) [Entitic vol] 10.3 fL Normal 9.5-13.5 [facility] Comment on above: Performed By: #### C BC ####[facility] Qqzowyyzvg4[address] [place], [place] [address]DrWesley Navarro PLT 175 103/ul Normal 150-450 [facility] Comment on above: Performed By: #### C BC ####[facility] Zfguwlhzns1216[address] [place], [place] [address]DrWesley Navarro RBC 4.54 106/ul Critically low 4.70-6.10 [facility] Comment on above: Performed By: #### C BC ####[facility] Txvxhxnwmv7097 [place], [place] [address]CpWesley Navarro WBC 19.2 103/ul Critically high 4.0-11.0 [facility] Comment on above: Performed By: #### C BC ####[facility] Gpmaplhhzo2893 [place] [id number] Emelina Navarro Covid-19 PCR (CVDTB)on 04-19 SARS-CoV-2 (COVID-19) RNA RADHA+probe Ql (Unsp spec) Not detected Normal NOT DETECTED [facility] Comment on above: Result Comment: When [...] for this test is supported by the Access Rn of Health and Human Service's declaration that [...] be used). Performed By: #### C VDTBH ####[facility] Iouyumzkdr9556 [place], [place] [address]CoWesley Emelina Navarro LIPASEon 04-29-2022 Lipase [Catalytic activity/Vol] 74.0 U/L Normal 73.0-393.0 [facility] Comment on above: Performed By: #### L IPA ####[facility] Eaotjkujtf2381 [place] [phone] Emelina Navarro PROF 14(COMP METB)on 022 Albumin [Mass/Vol] 2.8 g/dL Critically low 3.4-5.0 [facility] Comment on above: Performed By: #### C MP ####[facility] Nlvgwclzyt8215 [place] [address]Dr. Awildanitza Ramon Albumin/Globulin [Mass ratio] 0.7 {ratio} Normal [facility] Comment on above: Performed By: #### C MP ####[facility] Mzvnwzquar8742 [place] [address]Dr. Emelina Navarro ALP [Catalytic activity/Vol] 70 U/L Normal 46-116 [facility] Comment on above: Performed By: #### C MP ####[facility] Hozosupcbk4712 [place] [address]Dr. Emelina Navarro ALT [Catalytic activity/Vol] 456 U/L Critically high 16-63 [facility] Comment on above: Performed By: #### C MP ####[facility] Bpkvpgyqyd2096 [place] [address]Dr. Emelina Navarro Anion gap [Moles/Vol] 14.7 mmol/L Normal [facility] Comment on above: Performed By: #### C MP ####[facility] Iqblyzuaag[address] [place], [place] [address]Dr. Emelina Navarro AST [Catalytic activity/Vol] 388 U/L Critically high 15-37 [facility] Comment on above: Performed By: #### C MP ####[facility] Sdmwgptllx9139[address] [place], [place] [address]Dr. Emelina Navarro Bilirubin [Mass/Vol] 1.2 mg/dL Critically high 0.2-1.0 [facility] Comment on above: Performed By: #### C MP ####[facility] Hnjuvhnlta50[address] [place], [place] [address]Dr. Emelina Navarro Calcium [Mass/Vol] 7.8 mg/dL Critically low 8.5-10.1 [facility] Comment on above: Performed By: #### C MP ####[facility] Fhxalfqwwx0528 [place] [id number]. Emelina Navarro Chloride [Moles/Vol] 103 mmol/L Normal 98-107 [facility] Comment on above: Performed By: #### C MP ####[facility] Qfjerrbvbc0566 [place] [phone]. Emelina Navarro CO2 [Moles/Vol] 20.8 mmol/L Critically low 21.0-32.0 [facility] Comment on above: Performed By: #### C MP ####[facility] Xxwayzrgyp6867 [place] [id number]. Emelina Navarro Creatinine [Mass/Vol] 1.79 mg/dL Critically high 0.70-1.30 [facility] Comment on above: Performed By: #### C MP ####[facility] Hfekdoptjb0897 [place] [phone]. Emelina Navarro EGFR-AF [place] 46 mL/min/1.73m2 Critically low >=60 [facility] Comment on above: Performed By: #### C MP ####[facility] Cvwhhlvnsy6976 [place] [address]Dr. Emelina Navarro EGFR-NON AF [place] 38 mL/min/1.73m2 Critically low >=60 [facility] Comment on above: Performed By: #### C MP ####[facility] Umugavccpk1226 [place] [address]Dr. Emelina Navarro Globulin (S) [Mass/Vol] 3.9 g/dL Normal [facility] Comment on above: Performed By: #### C MP ####[facility] Aivpsdtsmt6942 [place] [phone]. Emelina Ramon Glucose [Mass/Vol] 313 mg/dL Critically high 74-106 [facility] Comment on above: Performed By: #### C MP ####[facility] Jaceqleevk2794 [place] [phone]. Emelina Ramon Potassium [Moles/Vol] 3.5 mmol/L Normal 3.5-5.1 [facility] Comment on above: Performed By: #### C MP ####[facility] Kfbwcwszzd2084 [place] [phone]. Emelina Ramon Protein [Mass/Vol] 6.7 g/dL Normal 6.4-8.2 [facility] Comment on above: Performed By: #### C MP ####[facility] Uotilfssht[address] [place], [place] [address]Dr. Emelina Navarro Sodium [Moles/Vol] 135 mmol/L Critically low 136-145 [facility] Comment on above: Performed By: #### C MP ####[facility] Npzoysbczp084[address] [place], [place] [address]Dr. Emelina Navarro Urea nitrogen [Mass/Vol] 41.0 mg/dL Critically high 7.0-18.0 [facility] Comment on above: Performed By: #### C MP ####[facility] Oqphpdsenj1337[address] [place], [place] [address]Dr. Emelina Navarro Urea nitrogen/Creatinine [Mass ratio] 22.9 mg/mg Normal [facility] Comment on above: Performed By: #### C MP ####[facility] Agxyozowai2294[address] [place], [place] [address]Dr. Emelina Navarro US SINGLE QUAD RT UPPERon US SINGLE QUAD RT UPPER Normal [facility] BLOOD GASES BTYon 04-28-2022 02 MODE NASAL CANNULA Normal [facility] Comment on above: Result Comment: rese rvoir cannula Performed By: #### A BG ####[facility] Qtyvaihgbl38[address] [place], [place] [address]Dr. Emelina Navarro ALLENS TEST Positive Normal [facility] Comment on above: Performed By: #### A BG ####[facility] Fvcetbupwo09[address] [place], [place] [address]Dr. Emelina Navarro Base excess Calc (Bld) [Moles/Vol] -6.6000 mmol/L Critically low -2.0-2.0 [facility] Comment on above: Performed By: #### A BG ####[facility] Bwkxnljgon7[address] [place], [place] [address]Dr. Emelina Navarro BIPAP PRESSURE Normal [facility] Comment on above: Performed By: #### A BG ####[facility] Zeglquaqjf6825[address] [place], [place] [address]Dr. Emelina Navarro CO2 [Moles/Vol] 34.0 mmol/L Critically high 23.0-28.0 [facility] Comment on above: Performed By: #### A BG ####[facility] Dwmtqighhv5261 [place] [address]Dr. Emelina Navarro CPAP Normal [facility] Comment on above: Performed By: #### A BG ####[facility] Ezyjghyvqd1822 [place] [address]Dr. Emelina Navarro FIO2 Normal [facility] Comment on above: Performed By: #### A BG ####[facility] Rcspaxciso2541 [place] [address]Dr. Emelina Navarro HCO3 (Bld) [Moles/Vol] 20.5 mmol/L Critically low 22.0-26.0 [facility] Comment on above: Performed By: #### A BG ####[facility] Washnxwgld9004[address] [place], [place] [address]Dr. Emelina Navarro LPM 5 Normal [facility] Comment on above: Performed By: #### A BG ####[facility] Ebsfclfzml2139[address] [place], [place] [address]Dr. Emelina Navarro MINUTE VOLUME Normal [facility] Comment on above: Performed By: #### A BG ####[facility] Flsvbihswl95[address] [place], [place] [address]Dr. Emelina Navarro Oxygen (Bld) [Partial pressure] 62.0 mm[Hg] Critically low 80.0-100.0 [facility] Comment on above: Performed By: #### A BG ####[facility] Fjrzhltztg9435[address] [place], [place] [address]Dr. Emelina Navarro Oxygen saturation in Blood 92.6 % Critically low 95.0-100.0 [facility] Comment on above: Performed By: #### A BG ####[facility] Wxlymznfdi75[address] [place], [place] [address]Dr. Emelina Navarro PCO2 25.7 mmHg Critically low 35.0-45.0 [facility] Comment on above: Performed By: #### A BG ####[facility] Oefispulrq8022 [place] [address]Dr. Emelina Navarro PEEP [facility] Comment on above: Performed By: #### A BG ####[facility] Teisbpfemc1844 [place] [address]Dr. Emelina Navarro pH (Bld) 7.443 [pH] Normal 7.350-7.45 0 [facility] Comment on above: Performed By: #### A BG ####[facility] S[address]sdnvjgn[address] [place], [place] [address]Dr. Emelina Navarro PIP [facility] Comment on above: Performed By: #### A BG ####[facility] Qlnnstvavs39[address] [place], [place] [address]Dr. Emelina Navarro PS [facility] Comment on above: Performed By: #### A BG ####[facility] Xxpijqweyj037[address] [place], [place] [address]Dr. Emelina Navarro PUNCTURE SITE LR [facility] Comment on above: Performed By: #### A BG ####[facility] Wkcsasxhkw[address] [place] [address]Dr. Emelina Navarro RATE [facility] Comment on above: Performed By: #### A BG ####[facility] Wdigymnfbm[address] [place], [place] [address]Dr. Emelina Navarro VENT MODE [facility] Comment on above: Performed By: #### A BG ####[facility] Fqrnbhquzv[address] [place], [place] [address]Dr. Emelina Navarro [place] [facility] Comment on above: Performed By: #### A BG ####[facility] Tadjtdeovl[address] [place], [place] [address]Dr. Emelina Navarro BNPon 04-28-2022 Natriuretic peptide B (Bld) [Mass/Vol] 68755.0 pg/mL Critically high <=900.0 [facility] Comment on above: Performed By: #### C MP, BNP, CMADM ####[facility] Mrrqndappb[address] [place] [address]Dr. Emelina Navarro CARDIAC IMTIAZ ADMITon 06-10-2 022 CK [Catalytic activity/Vol] 86 U/L Normal 39-308 [facility] Comment on above: Performed By: #### C MP, BNP, CMADM ####[facility] Iwugowqeue[address] [place] [address]Dr. Emelina Navarro CK.MB [Mass/Vol] 1.41 ng/mL Normal <=3.60 [facility] Comment on above: Performed By: #### C MP, BNP, CMADM ####[facility] Rpzyskcjxq3156 [place] [address]Dr. Emelina Navarro HSTROP 63.7 pg/mL Normal 4.0-76.1 [facility] Comment on above: Result Comment: CUT- OFF POINTS HAVE BEEN ESTABLISHED BASED ON THE FOURTH UNIVERSAL DEFINITIONS OF MYOCARDIALINFARCTION. THE UPPER REFERENCE LIMIT (URL) OF TROPONIN, DEFINED THE 99TH PERCENTILE OFcTnI DISTRIBUTION IN A REFERENCE POPULATION, HAS BEEN CONFIRMED THE DECISION THRESHOLDFOR RI DIAGNOSIS. Performed By: #### C MP, BNP, CMADM ####[facility] Xjplfntdpv37[address] [place] [address]Dr. Emelina Ramon URBANO 276 ng/mL Critically high 16-96 [facility] Comment on above: Performed By: #### C MP, BNP, CMADM ####[facility] Acnrasnufh[address] [place], [place] [address]Dr. Emelina Ramon CBC AUTO DIFFon 04-28-2022 BASO # 0.0 103/ul Normal 0.0-0.1 [facility] Comment on above: Performed By: #### C BC ####[facility] Vmldcuafqp6797 [place] [address]Dr. Awildanitza Navarro Basophils/100 WBC (Bld) 0.2 % Normal 0.2-2.0 [facility] Comment on above: Performed By: #### C BC ####[facility] Nbclfsosyx7[address] [place], [place] [address]Dr. Emelina Navarro EO # 0.0 103/ul Normal 0.0-0.7 [facility] Comment on above: Performed By: #### C BC ####[facility] Klsfxsymvt[address] [place], [place] [id number]. Emelina Navarro Eosinophils/100 WBC (Bld) 0.1 % Critically low 0.9-7.0 [facility] Comment on above: Performed By: #### C BC ####[facility] Noedjchjlc3183 [place] [address]Dr. Emelina Navarro Erythrocyte distribution width (RBC) [Ratio] 16.5 % Critically high 11.0-15.0 [facility] Comment on above: Performed By: #### C BC ####[facility] Lfxuciumif[address] [place], [place] [address]Dr. Emelina Navarro Hematocrit (Bld) [Volume fraction] 45.2 % Normal 42.0-54.0 [facility] Comment on above: Performed By: #### C BC ####[facility] Sivlipukcf4[address] [place], [place] [address]Dr. Emelina Navarro Hemoglobin (Bld) [Mass/Vol] 14.8 g/dL Normal 14.0-18.0 [facility] Comment on above: Performed By: #### C BC ####[facility] Lyppkbzpvd6[address] [place], [place] [address]Dr. Emelina Navarro IG # 0.14 10e3/ul Critically high 0.00-0.03 [facility] Comment on above: Performed By: #### C BC ####[facility] Apqsaetpwm17[address] [place], [place] [address]Dr. Emelina Navarro IG % 0.9 % Critically high 0.0-0.5 [facility] Comment on above: Performed By: #### C BC ####[facility] Mxdlwnsjdc8[address] [place], [place] [address]Dr. Emelina Navarro LYMPH # 0.8 103/ul Critically low 1.2-3.8 [facility] Comment on above: Performed By: #### C BC ####[facility] Smhcbbfbjb[address] [place], [place] [address]Dr. Emelina Navarro Lymphocytes/100 WBC (Bld) 5.1 % Critically low 20.5-60.0 [facility] Comment on above: Performed By: #### C BC ####[facility] Pltkkxwibv6[address] [place] [id number]. Emelina Navarro MANUAL DIFF REQ NO Normal [facility] Comment on above: Performed By: #### C BC ####[facility] Wlnjlgxxsb6481 [place] [id number]. Emelina Navarro MCH (RBC) [Entitic mass] 29.3 pg Normal 25.9-34.0 [facility] Comment on above: Performed By: #### C BC ####[facility] Hmshyodjtf4704 [place] [id number]. Emelina Navarro MCHC (RBC) [Mass/Vol] 32.7 g/dL Normal 29.9-35.2 [facility] Comment on above: Performed By: #### C BC ####[facility] Aurmbtgxxv3900 [place] [address]Dr. Emelina Ramon MCV (RBC) [Entitic vol] 89.5 fL Normal 80.0-94.0 [facility] Comment on above: Performed By: #### C BC ####[facility] Hhhthuwcnh3222 [place] [id number]. Emelina Ramon MONO # 1.1 103/ul Critically high 0.3-0.8 [facility] Comment on above: Performed By: #### C BC ####[facility] Ntqjfnakev2935 [place] [address]Dr. Awildanitza Navarro Monocytes/100 WBC (Bld) 7.0 % Normal 1.7-12.0 [facility] Comment on above: Performed By: #### C BC ####[facility] Uhfeqnhtgj4683 [place] [id number]. Awildanitza Ramon NEUT # 13.3 103/ul Critically high 1.4-6.5 [facility] Comment on above: Performed By: #### C BC ####[facility] Buwyfvztyk3242 [place] [id number]. Emelina Navarro Neutrophils/100 WBC (Bld) 86.7 % Critically high 43.0-75.0 [facility] Comment on above: Performed By: #### C BC ####[facility] Meoifrovvj8845 [place], [place] [address]Gs. Emelina Navarro Platelet mean volume (Bld) [Entitic vol] 10.7 fL Normal 9.5-13.5 [facility] Comment on above: Performed By: #### C BC ####[facility] Jtqftpwezr3170 [place], [place] [address]Fu. Emelina Navarro PLT 200 103/ul Normal 150-450 [facility] Comment on above: Performed By: #### C BC ####[facility] Evbcixstlt8374 [place], [place] [address]Ql. Emelina Navarro RBC 5.05 106/ul Normal 4.70-6.10 [facility] Comment on above: Performed By: #### C BC ####[facility] Iefauzqxdo1913 [place] [phone]. Emelina Navarro WBC 15.4 103/ul Critically high 4.0-11.0 [facility] Comment on above: Performed By: #### C BC ####[facility] Qzrmcvgrwv7504 [place] [phone]. Emelina Navarro CULTURE BLOODon 04-28-2022 Microscopic examination of blood, culture Culture Observations: NO GROWTH AT 5 DAYS. Normal [facility] Comment on above: Performed By: #### B LDCX2 ####[facility] Tfdqcjqssq5949 [place] [phone]. Emelina Navarro Microscopic examination of blood, culture Culture Observations: NO GROWTH AT 5 DAYS. Normal [facility] Comment on above: Performed By: #### B LDCX1 ####[facility] Incpxbqdzr1327 [place] [phone]. Emelina Navarro [facility] SARS-CoV-2 (COVID-19) RNA RADHA+probe Ql (Unsp spec) Not detected Normal NOT DETECTED [facility] Comment on above: Result Comment: When [...] for this test is supported by the Van of Health and Human Service's declaration that [...] be used). Performed By: #### C VDTBH ####[facility] Ofdgnlvxcn11[address] [place], [place] [address]Dr. Emelina Navarro DIGOXINon 04-28-2022 DIG 0.8 ng/mL Critically low 0.9-2.0 [facility] Comment on above: Performed By: #### D IG ####[facility] Hvgtijgyzn1639[address] [place], [place] [address]Dr. Emelina Navarro ER URINE PROFILEon 2 Bilirubin Ql (U) Negative Normal NEGATIVE [facility] Comment on above: Performed By: #### PATRIZIA BOLAND ####[facility] Jpoiypyvtc[address] [place], [place] [address]Dr. Emelina Navarro Clarity (U) CLEAR Normal CLEAR [facility] Comment on above: Performed By: #### PATRIZIA BOLAND ####[facility] Dnfqzwjxeq5[address] [place], [place] [address]Dr. Emelina Navarro Color (U) YELLOW Normal YELLOW [facility] Comment on above: Performed By: #### LINDSAY BOLANDRO ####[facility] Tnlbxcdpfy80[address] [place], [place] [address]Dr. Emelina Navarro ERUAHD A micrscopic examina tion will be performed if indicated. Normal [facility] Comment on above: Performed By: #### LINDSAY BOLANDRO ####[facility] Ucpmmmdvai8[address] [place], [place] [address]Dr. Emelina Navarro Glucose Ql (U) 500 mg/dl Abnormal NEGATIVE [facility] Comment on above: Performed By: #### Hitesh POLK UMICRO ####[facility] Xufrjljxsh26[address] [place] [address]Dr. Emelina Navarro Hemoglobin Ql (U) MODERATE Abnormal NEGATIVE [facility] Comment on above: Performed By: #### Hitesh POLK UMICRO ####[facility] Cgnpavlkhp0696 [place] [address]Dr. Emelina Navarro Ketones Ql (U) Negative Normal NEGATIVE [facility] Comment on above: Performed By: #### Hitesh POLK UMICRO ####[facility] Gkvhprtpml[address] [place], [place] [address]Dr. Emelina Navarro LEUKOCYTES Negative Normal NEGATIVE [facility] Comment on above: Performed By: #### Hitesh POLK UMICRO ####[facility] Mwklzieopc3[address] [place], [place] [address]Dr. Emelina Navarro Nitrite Ql (U) Negative Normal NEGATIVE [facility] Comment on above: Performed By: #### Hitesh POLK UMICRO ####[facility] Yusplrcwto2514[address] [place], [place] [address]Dr. Emelina Navarro pH (U) 5.0 [pH] Normal 5-9 [facility] Comment on above: Performed By: #### Hitesh POLK UMICRO ####[facility] Udvuadhcpv0[address] [place], [place] [address]Dr. Emelina Navarro Protein (U) [Mass/Vol] 100 mg/dL Abnormal NEGATIVE/ TRACE [facility] Comment on above: Performed By: #### Hitesh POLK UMICRO ####[facility] Juyxycfkyb[address] [place], [place] [address]Dr. Emelina Navarro SPEC GRAVITY 1.025 Normal 1.005-<=1. 025 [facility] Comment on above: Performed By: #### Hitesh POLK UMICRO ####[facility] Stcsxbobuk[address] [place], [place] [address]Dr. Emelina Navarro UR MICRO IND INDICATED Normal [facility] Comment on above: Performed By: #### PATRIZIA BOLAND ####[facility] Occragsipb2767 [place] [address]Dr. Emelina Navarro Urobilinogen Qn (U) 0.2 {Ashley'U}/dL Normal 0.2 - 1. 0 [facility] Comment on above: Performed By: #### PATRIZIA BOLAND ####[facility] Vkdagtwevo3537 [place] [address]Dr. Emelina Navarro LACTATE/LACTIC ACIDon 04-28- 2021 Lactate [Moles/Vol] 5.1 mmol/L Critically high 0.4-1.9 [facility] Comment on above: Performed By: #### L ACT ####[facility] Zqwovpiixx69[address] [place], [place] [address]Dr. Emelina Navarro Lactate [Moles/Vol] 4.8 mmol/L Critically high 0.4-1.9 [facility] Comment on above: Performed By: #### L ACT ####[facility] Xmkeynzijl[address] [place], [place] [address]Dr. Emelina Navarro Lactate [Moles/Vol] 5.4 mmol/L Critically high 0.4-1.9 [facility] Comment on above: Performed By: #### L ACT ####[facility] Bvfgufoctp66[address] [place], [place] [address]Dr. Emelina Navarro POINT OF CARE GLUCOSEon 04-19-2021 Glucose [Mass/Vol] 426 mg/dL Critically high 74-106 [facility] Comment on above: Performed By: #### P OCGLUC ####[facility] Wnipjuxrio36[address] [place], [place] [address]Dr. Emelina Navarro Glucose [Mass/Vol] 476 mg/dL Critically high 74-106 [facility] Comment on above: Performed By: #### P OCGLUC ####[facility] Uucsiumiaj97[address] [place], [place] [address]Dr. Emelina Navarro Glucose [Mass/Vol] 347 mg/dL Critically high 74-106 [facility] Comment on above: Performed By: #### P OCGLUC ####[facility] Jkwkttinzo6566 [place] [address]Dr. Emelina Navarro PROF 14(COMP METB)on 022 Albumin [Mass/Vol] 3.4 g/dL Normal 3.4-5.0 [facility] Comment on above: Performed By: #### C MP, BNP, CMADM ####[facility] Gcmnuxxtsz4785 [place] [address]Dr. Emelina Navarro Albumin/Globulin [Mass ratio] 0.8 {ratio} Normal [facility] Comment on above: Performed By: #### C MP, BNP, CMADM ####[facility] Jaoauewwjk1809 [place] [address]Dr. Emelina Navarro ALP [Catalytic activity/Vol] 85 U/L Normal 46-116 [facility] Comment on above: Performed By: #### C MP, BNP, CMADM ####[facility] Sdgpedekml5480 [place] [address]Dr. Emelina Navarro ALT [Catalytic activity/Vol] 246 U/L Critically high 16-63 [facility] Comment on above: Performed By: #### C MP, BNP, CMADM ####[facility] Qdtlynqcsq4903 [place] [address]Dr. Emelina Navarro Anion gap [Moles/Vol] 20.7 mmol/L Normal [facility] Comment on above: Performed By: #### C MP, BNP, CMADM ####[facility] Xnvnlwoeff2577 [place] [address]Dr. Emelina Navarro AST [Catalytic activity/Vol] 299 U/L Critically high 15-37 [facility] Comment on above: Performed By: #### C MP, BNP, CMADM ####[facility] Vnvyigkvhr9669 [place] [address]Dr. Emelina Navarro Bilirubin [Mass/Vol] 2.7 mg/dL Critically high 0.2-1.0 [facility] Comment on above: Performed By: #### C MP, BNP, CMADM ####[facility] Waswdpcayj4732 [place] [address]Dr. Emelina Navarro Calcium [Mass/Vol] 8.5 mg/dL Normal 8.5-10.1 [facility] Comment on above: Performed By: #### C MP, BNP, CMADM ####[facility] Uidglyetmq0378 [place] [address]Dr. Emelina Navarro Chloride [Moles/Vol] 96 mmol/L Critically low 98-107 [facility] Comment on above: Performed By: #### C MP, BNP, CMADM ####[facility] Tkzfmeqkwi4678 [place] [address]Dr. Emelina Navarro CO2 [Moles/Vol] 19.3 mmol/L Critically low 21.0-32.0 [facility] Comment on above: Performed By: #### C MP, BNP, CMADM ####[facility] Xwdwihhvzp[address] [place], [place] [address]Dr. Emelina Navarro Creatinine [Mass/Vol] 2.46 mg/dL Critically high 0.70-1.30 [facility] Comment on above: Performed By: #### C MP, BNP, CMADM ####[facility] Rlzaskqjmj85[address] [place], [place] [address]Dr. Emelina Navarro EGFR-AF EAST TIMOR[place] 32 mL/min/1.73m2 Critically low >=60 [facility] Comment on above: Performed By: #### C MP, BNP, CMADM ####[facility] Rhcmhoyksv94[address] [place], [place] [address]Dr. Emelina Navarro EGFR-NON AF EAST [place] 26 mL/min/1.73m2 Critically low >=60 [facility] Comment on above: Performed By: #### C MP, BNP, CMADM ####[facility] Kzbjkxscsz0481 [place] [address]Dr. Emelina Navarro Globulin (S) [Mass/Vol] 4.4 g/dL Normal [facility] Comment on above: Performed By: #### C MP, BNP, CMADM ####[facility] Ddlzmdmzkq5399 [place] [address]Dr. Emelina Navarro Glucose [Mass/Vol] 359 mg/dL Critically high 74-106 [facility] Comment on above: Performed By: #### C MP, BNP, CMADM ####[facility] Mkbhrrkhby6582 [place] [address]Dr. Emelina Navarro Potassium [Moles/Vol] 7.0 mmol/L Critically high 3.5-5.1 [facility] Comment on above: Performed By: #### C MP, BNP, CMADM ####[facility] Kvwdvnylkh6493 [place] [address]Dr. Emelina Navarro Protein [Mass/Vol] 7.8 g/dL Normal 6.4-8.2 [facility] Comment on above: Performed By: #### C MP, BNP, CMADM ####[facility] Gmtatkmvca143[address] [place], [place] [address]Dr. Emelina Ramon Sodium [Moles/Vol] 129 mmol/L Critically low 136-145 [facility] Comment on above: Performed By: #### C MP, BNP, CMADM ####[facility] Hpvntcsexe[address] [place], [place] [address]Dr. Emelina Navarro Urea nitrogen [Mass/Vol] 37.0 mg/dL Critically high 7.0-18.0 [facility] Comment on above: Performed By: #### C MP, BNP, CMADM ####[facility] Vnkzewhina5[address] [place], [place] [address]Dr. Emelina Ramon Urea nitrogen/Creatinine [Mass ratio] 15.0 mg/mg Normal [facility] Comment on above: Performed By: #### C MP, BNP, CMADM ####[facility] Zkoqusxbvy60[address] [place], [place] [address]Dr. Awildanitza Navarro PROF CHEM 8 (BAS METB)on Anion gap [Moles/Vol] 19.2 mmol/L Normal [facility] Comment on above: Performed By: #### B MP ####[facility] Tikjwybiev9[address] [place], [place] [address]Dr. Emelina Navarro Calcium [Mass/Vol] 7.7 mg/dL Critically low 8.5-10.1 [facility] Comment on above: Performed By: #### B MP ####[facility] Wedmafppjz3547 [place] [address]Dr. Emelina Navarro Chloride [Moles/Vol] 97 mmol/L Critically low 98-107 [facility] Comment on above: Performed By: #### B MP ####[facility] Wsmekpcxwa8476[address] [place], [place] [address]Dr. Emelina Navarro CO2 [Moles/Vol] 20.5 mmol/L Critically low 21.0-32.0 [facility] Comment on above: Performed By: #### B MP ####[facility] Hxmgxdiqyz75[address] [place], [place] [address]Dr. Emelina Navarro Creatinine [Mass/Vol] 2.18 mg/dL Critically high 0.70-1.30 [facility] Comment on above: Performed By: #### B MP ####[facility] Rdipeqmqza6104[address] [place], [place] [address]Dr. Emelina Navarro EGFR-AF EAST [place] 37 mL/min/1.73m2 Critically low >=60 [facility] Comment on above: Performed By: #### B MP ####[facility] Zxgosefyxy9[address] [place], [place] [address]Dr. Emelina Navarro EGFR-NON AF E[place] 30 mL/min/1.73m2 Critically low >=60 [facility] Comment on above: Performed By: #### B MP ####[facility] Wgntorrmue8[address] [place], [place] [address]Dr. Emelina Navarro Glucose [Mass/Vol] 434 mg/dL Critically high 74-106 [facility] Comment on above: Performed By: #### B MP ####[facility] Xiqmzdvykx2835[address] [place], [place] [address]Dr. Emelina Navarro Potassium [Moles/Vol] 4.7 mmol/L Normal 3.5-5.1 [facility] Comment on above: Performed By: #### B MP ####[facility] Djtvoheqbk6935[address] [place], [place] [address]Dr. Emelina Navarro Sodium [Moles/Vol] 132 mmol/L Critically low 136-145 [facility] Comment on above: Performed By: #### B MP ####[facility] Sdismbkbxj3573 [place] [address]Dr. Emelina Navarro Urea nitrogen [Mass/Vol] 37.0 mg/dL Critically high 7.0-18.0 [facility] Comment on above: Performed By: #### B MP ####[facility] Jpynbshodf9051 [place] [address]Dr. Emelina Navarro Urea nitrogen/Creatinine [Mass ratio] 17.0 mg/mg Normal [facility] Comment on above: Performed By: #### B MP ####[facility] Tlnmenxpwf7522[address] [place], [place] [address]Dr. Emelina Navarro PROTIMEon 04-28-2022 INR Coag (PPP) [Relative time] 1.91 {INR} Normal [facility] Comment on above: Performed By: #### P TT, PT ####[facility] Fbnblfrxga7906[address] [place], [place] [address]Dr. Emelina Navarro INR GUIDELINES SEE BELOW Normal [facility] Comment on above: Result Comment: WENDY RED INR: 2.0 - 3.0 CONDITIONS NOT LISTED BELOW 2.5 - 3.5 FOR PROSTHETIC HEART VALVE REPLACEMENT 2.5 - 3.5 RECURRENT THROMBOSIS Performed By: #### P TT, PT ####[facility] Rirtrdarsh5[address] [place], [place] [address]Dr. Emelina Navarro PT Coag (PPP) [Time] 19.8 s Critically high 9.0-11.6 [facility] Comment on above: Performed By: #### P TT, PT ####[facility] Qypuimabhx5253[address] [place], [place] [address]Dr. Emelina Navarro PTTon 04-28-2022 aPTT Coag (Bld) [Time] 33.0 s Normal 22.3-36.2 [facility] Comment on above: Performed By: #### P TT, PT ####[facility] Cemypxyxul9489[address] [place], [place] [address]Dr. Emelina Navarro RESPIRATORY PANEL PLUSon Adenovirus Not detected Normal NOT DETECTED [facility] Comment on above: Performed By: #### R SPLUS ####[facility] Zqvlbgazxc[address] [place], [place] [address]Dr. Emelina Navarro B. Parapertusis Not detected Normal NOT DETECTED [facility] Comment on above: Performed By: #### R SPLUS ####[facility] Whafaivsic387[address] [place], [place] [address]Dr. Emelina Navarro B. Pertussis Not detected Normal NOT DETECTED [facility] Comment on above: Performed By: #### R SPLUS ####[facility] Wptfyqttxs023[address] [place], [place] [address]Dr. Emelina Navarro Chlamydia Pneumoniae Not detected Normal NOT DETECTED [facility] Comment on above: Performed By: #### R SPLUS ####[facility] Qobegntezj[address] [place], [place] [address]Dr. Eemlina Navarro Coronavirus 229E Not detected Normal NOT DETECTED [facility] Comment on above: Performed By: #### R SPLUS ####[facility] Ttuucnysiq39[address] [place], [place] [address]Dr. Emelina Navarro Coronavirus HKU1 Not detected Normal NOT DETECTED [facility] Comment on above: Performed By: #### R SPLUS ####[facility] Xkmyjsncfu[address] [place], [place] [address]Dr. Emelina Navarro Coronavirus NL63 Not detected Normal NOT DETECTED [facility] Comment on above: Performed By: #### R SPLUS ####[facility] Xaqanugonb5317[address] [place], [place] [address]Dr. Yinitza Navarro Coronavirus OC43 Not detected Normal NOT DETECTED [facility] Comment on above: Performed By: #### R SPLUS ####[facility] Wesqaitige8104[address] [place], [place] [address]Dr. Yilan Navarro Influenza A H1 2009 Not detected Normal NOT DETECTED [facility] Comment on above: Performed By: #### R SPLUS ####[facility] Bojverojll66[address] [place], [place] [address]Dr. Yilan Navarro Influenza A H3 Not detected Normal NOT DETECTED [facility] Comment on above: Performed By: #### R SPLUS ####[facility] Meeqkgukqv94[address] [place], [place] [address]Dr. Yilan Navarro Influenza B Not detected Normal NOT DETECTED [facility] Comment on above: Performed By: #### R SPLUS ####[facility] Yipxpqhsea1292 [place] [address]Dr. Emelina Navarro Metapneumovirus Not detected Normal NOT DETECTED [facility] Comment on above: Performed By: #### R SPLUS ####[facility] Pcyozlvpgz0562 [place] [address]Dr. Emelina Navarro Mycoplas. Pneumoniae Not detected Normal NOT DETECTED [facility] Comment on above: Performed By: #### R SPLUS ####[facility] Jficpfmrcz[address] [place], [place] [address]Dr. Emelina Navarro Parainfluenza 1 Not detected Normal NOT DETECTED [facility] Comment on above: Performed By: #### R SPLUS ####[facility] [address] [place], [place] [address]Dr. Emelina Navarro Parainfluenza 2 Not detected Normal NOT DETECTED [facility] Comment on above: Performed By: #### R SPLUS ####[facility] Shbywr[address] [place], [place] [address]Dr. Emelina Navarro Parainfluenza 3 Detected Abnormal NOT DETECTED [facility] Comment on above: Performed By: #### R SPLUS ####[facility] Chxbptj[address] [place], [place] [address]Dr. Emelina Navarro Parainfluenza 4 Not detected Normal NOT DETECTED [facility] Comment on above: Performed By: #### R SPLUS ####[facility] Vzqeastvv[address] [place], [place] [address]Dr. Emelina Navarro Rhino/Enterovirus Not detected Normal NOT DETECTED [facility] Comment on above: Performed By: #### R SPLUS ####[facility] Rvumwisham[address] [place], [place] [address]Dr. Emelina Navarro RP2 Header 1 RESPIRATORY PANEL: VIRUSES Normal [facility] Comment on above: Performed By: #### R SPLUS ####[facility] Eatwyrjhfi[address] [place], [place] [address]Dr. Emelina Navarro RP2 Header 2 RESPIRATORY PANEL: BACTERIA Normal [facility] Comment on above: Performed By: #### R SPLUS ####[facility] [address] [place] [address]Dr. Emelina Navarro RSV Not detected Normal NOT DETECTED [facility] Comment on above: Performed By: #### R SPLUS ####[facility] [address] [place] [address]Dr. Emelina Navarro SARS-CoV-2 (COVID-19) RNA RADHA+probe Ql (Unsp spec) Not detected Normal NOT DETECTED [facility] Comment on above: Performed By: #### R SPLUS ####[facility] Gvvcjudmus[address] [place], [place] [address]Dr. Emelina Navarro URINE MICROSCOPIC ONLYon BACTERIA NONE SEEN Normal NONE SEEN [facility] Comment on above: Performed By: #### Hitesh POLK UMICRO ####[facility] Islgcnonkl[address] [place], [place] [address]Dr. Emelina Navarro Bacteria identified Cx Nom (U) NOT INDICATED Normal [facility] Comment on above: Performed By: #### Hitesh POLK UMICRO ####[facility] S[address]xlf[address] [place], [place] [address]Dr. Emelina Navarro CAST SEEN Abnormal NONE SEEN [facility] Comment on above: Performed By: #### Hitesh POLK UMICRO ####[facility] Fevbrytmho[address] [place], [place] [address]Dr. Emelina Navarro Crystals LM Nom (Urine sed) NONE SEEN Normal NONE SEEN [facility] Comment on above: Performed By: #### Hitesh POLK UMICRO ####[facility] Uy[address] [place], [place] [address]Dr. Emelina Navarro Epithelial cells LM Ql (Urine sed) FEW Abnormal NONE SEEN /RARE [facility] Comment on above: Performed By: #### Hitesh POLK UMICRO ####[facility] [address]em[address] [place], [place] [address]Dr. Emelina Navarro HYALINE CAST MANY Normal [facility] Comment on above: Performed By: #### Hitesh POLK UMICRO ####[facility] [address] [place], [place] [address]Mh. Awildalan Navarro MUCOUS NONE SEEN Normal NONE SEEN [facility] Comment on above: Performed By: #### PATRIZIA BOLAND ####[facility] [address] [place], [place] [address]Bt. Emelina Navarro RBC 0-2 Normal 0-2 [facility] Comment on above: Performed By: #### PATRIZIA BOLAND ####[facility] [address] [place], [place] [address]Ip. Emelina Navarro WBC 0-2 Abnormal NONE SEEN [facility] Comment on above: Performed By: #### PATRIZIA BOLAND ####[facility] [address] [place] [id number]. Emelina Navarro XR CHEST 1 Von 04-28-2022 XR CHEST 1 V Normal [facility] Albumin [Mass/volume] in Ser um or PlasmaOrdered By: Ethan Cummings on 04-10-2022 Albumin [Mass/Vol] 3.8 g/dL 2.9-4.4 [facility] IgA [Mass/volume] in Serum o r PlasmaOrdered By: Ethan Cummings on 04-10-2022 IgA [Mass/Vol] 607 mg/dL 61-437 [facility] IgG [Mass/volume] in Serum o r PlasmaOrdered By: Ethan Cummings on 04-10-2022 IgG [Mass/Vol] 1207 mg/dL 603-1613 [facility] IgM [Mass/volume] in Serum o r PlasmaOrdered By: Ethan Cummings on 04-10-2022 IgM [Mass/Vol] 94 mg/dL 20-172 [facility] Comment on above: Performed at: [address] [id number] Director: Alexis Winslow PhD, Phone: [phone] Immunoglobulin light chains. kappa.free [Mass/volume] in SerumOrdered By: Ethan Cummings on 04-10-2022 Immunoglobulin light chains.kappa.free (S) [Mass/Vol] 58.6 mg/L 3.3-19.4 [facility] Immunoglobulin light chains. kappa.free/Immunoglobulin light chains.lambda.free [MassOrdered By: Ethan Cummings on 04-10-2022 Immunoglobulin light chains.kappa.free/Imm unoglobulin light chains.lambda.free (S) [Mass ratio] 1.42 0.26-1.65 [facility] Comment on above: Performed at: [place] [facility] [address] [id number] Director: Alexis Winslow PhD, Phone: [phone] Immunoglobulin light chains. lambda.free [Mass/volume] in Serum or PlasmaOrdered By: Ethan Cummings on 04-10-2022 Immunoglobulin light chains.lambda.free [Mass/Vol] 41.2 mg/L 5.7-26.3 [facility] Laboratory - Hematology and Cell countsOrdered By: Ethan Cummings on 04-10-2022 Nucleated RBC/100 WBC (Bld) [Ratio] 0.0 % 0-0.5 [facility] No Panel InformationOrdered By: Ethan Cummings on 04-10-2022 BCR/abl See comment [facility] Comment on above: See report. Scanned copy available in EMR. CBC Comment See comment [facility] Comment on above: Slide referred to raquel belcher for review Platelet Estimate Normal Normal [facility] Platelet Morphology Comment Normal Normal [facility] Protein Electrophoresis M-Brenden Not observed g/dL Not Observed [facility] Protein Electrophoresis Note See comment . [facility] Comment on above: Protein electrophore sis scan will follow via computer,mail, or cnc field service engineer delivery.Performed at: [place] [facility] [address] [id number] Director: Alexis Winslow PhD, Phone: [phone] Serum Immunofixation See comment . [facility] Comment on above: No monoclonality det ected. Protein [Mass/volume] in Ser um or PlasmaOrdered By: Ethan Cummings on 04-10-2022 Protein [Mass/Vol] 7.4 g/dL 6.0-8.5 [facility] RBC morphologyOrdered By: Francis Cummings on 04-10-2022 RBC morphology finding Nom (Bld) Normal [facility] Serum globulin measurement ( mass/volume)Ordered By: Ethan Cummings on 04-10-2022 Globulin (S) [Mass/Vol] 3.6 g/dL 2.2-3.9 [facility] Serum or plasma albumin/glob ulin mass ratioOrdered By: Ethan Cummings on 04-10-2022 Albumin/Globulin [Mass ratio] 1.1 {ratio} 0.7-1.7 [facility] Serum or plasma alpha 1 glob ulin measurement by electrophoresis (mass/volume)Ordered By: Ethan Cummings on 04-10-2022 Alpha 1 globulin Elph [Mass/Vol] 0.2 g/dL 0.0-0.4 [facility] Serum or plasma alpha 2 glob ulin measurement by electrophoresis (mass/volume)Ordered By: Ethan Cummings on 04-10-2022 Alpha 2 globulin Elph [Mass/Vol] 0.9 g/dL 0.4-1.0 [facility] Serum or plasma beta globuli n measurement by electrophoresis (mass/volume)Ordered By: Ethan Cummings on 04-10-2022 Beta globulin Elph [Mass/Vol] 1.2 g/dL 0.7-1.3 [facility] Serum or plasma gamma globul in measurement by electrophoresis (mass/volume)Ordered By: Ethan Cummings on 04-10-2022 Gamma globulin Elph [Mass/Vol] 1.3 g/dL 0.4-1.8 [facility] Serum or plasma methylmalona te measurement (moles/volume)Ordered By: Ethan Cummings on 04-10-2022 Methylmalonate [Moles/Vol] 668 nmol/L 0-378 [facility] Comment on above: This test was develo ped and its performance characteristicsdetermined by [employer]. It has not been cleared orapproved by the Food and Drug Administration.Performed at: [address] [id number] Director: Natalia Vergara MD, Phone: [phone] XR foot LT min 3V*on 04-03-2 022 XR foot LT min 3V* [facility] [employer] Other XR foot LT min 3V* [facility] [employer] Other XR foot LT min 3V* [address] [facility] [employer] Other XR foot LT min 3V* [place] [address] [employer] Other XR foot LT min 3V* XRay Report [employer] Other XR foot LT min 3V* Signed [employer] Other XR foot LT min 3V* Patient: Adwoa Porter MR#: [id number] [facility] Other XR foot LT min 3V* 7 [employer] Other XR foot LT min 3V* : 1955 Acct:[id number] [employer] Other XR foot LT min 3V* Age/Sex: 66 / M ADM Date: 02/19/22 [employer] Other XR foot LT min 3V* Loc: XDUCLY Room: pe: [facility] [employer] Other XR foot LT min 3V* Attending Dr: Ruthie EUCEDA [employer] Other XR foot LT min 3V* Ordering Provider: KINSEY Jiménez [employer] Other XR foot LT min 3V* Date of Service: 02/19/22 [employer] Other XR foot LT min 3V* 10661) XR/XR foot LT min 3V*: Left foot pain [employer] Other XR foot LT min 3V* Copies to: KINSEY Mancia [employer] Other XR foot LT min 3V* LEFT FOOT - 3 views [employer] Other XR foot LT min 3V* CLINICAL HISTORY: Le ft foot pain. [employer] Other XR foot LT min 3V* COMPARISON: Left tessie t series 02/09/2020 [employer] Other XR foot LT min 3V* FINDINGS: [employer] Other XR foot LT min 3V* Soft tissue swelling is noted. Since the prior study, as been interval partial amputation of the [employer] Other XR foot LT min 3V* first digit. 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 Questionable [employer] Other XR foot LT min 3V* subluxation/dislocat ion involving the PIP joint of the second digit. No definite plain film [employer] Other XR foot LT min 3V* evidence of osteomyelitis. [employer] Other XR foot LT min 3V* X R/XR foot LT min 3V* [employer] Other XR foot LT min 3V* IMPRESSION: [employer] Other XR foot LT min 3V* QUESTIONABLE SUBLUXATION/DISLOCATION INVOLVING THE PIP JOINT OF THE SECOND DIGIT. SOFT TISSUE [employer] Other XR foot LT min 3V* SWELLING. [employer] Other XR foot LT min 3V* Impression dictated by: Brennan Salgado Jr., DWesleyOWesley02/19/2022 11:52 AM [employer] Other XR foot LT min 3V* Dictation Location: [place] [address] [employer] Other XR foot LT min 3V* Transcribed By: CONSUELO 02/19/22 1152 [employer] Other XR foot LT min 3V* Dictated By: Brennan Salgado Jr, DO 02/19/22 1148 [facility] Grou[employer] Other XR foot LT min 3V* Signed By: [employer] Other XR foot LT min 3V* 02/19/22 1152 [facility] [employer] Other Glucose - FINGER STICKon Glucose [Mass/Vol] 166 mg/dL [facility] [employer] Other A1C HEMOGLOBINon 11-16-2021 HbA1c (Bld) [Mass fraction] 10.7 % Othello Grouper Other Glucose - FINGER STICKon Glucose [Mass/Vol] 205 mg/dL [facility] [employer] Other HbA1c (Bld) [Mass fraction]o n 11-16-2021 A1C HEMOGLOBIN [facility] [employer] Other Glucose - FINGER STICKon Glucose [Mass/Vol] 158 mg/dL [facility] [employer] Other BASIC METABOLIC PANELon 05-3 Calcium [Mass/Vol] 9.9 mg/dL Normal 8.6-10.3 [facility] Comment on above: Order Comment: No: D o not add to previous draw Performed By: #### 9 9909, 82586, 70895, 93314 #### [facility] [address] [place] [address], [place] Chloride [Moles/Vol] 93 mmol/L Low 98-107 [facility] Comment on above: Order Comment: No: D o not add to previous draw Performed By: #### 9 9909, 71115, 92753, 24261 #### [facility] [address] [place] [address], [place] CO2 [Moles/Vol] 32 mmol/L High 21-31 [facility] Comment on above: Order Comment: No: D o not add to previous draw Performed By: #### 9 9909, 50345, 92546, 29172 #### [facility] [address] [place] [address], [place] Creatinine [Mass/Vol] 1.89 mg/dL High 0.70-1.30 [facility] Comment on above: Order Comment: No: D o not add to previous draw Performed By: #### 9 9909, 48321, 53407, 45276 #### [facility] [address] [place] [address], [place] eGFR- 43 ml/min/1.73sq m Abnormal >60 [facility] Comment on above: Order Comment: No: D o not add to previous draw Performed By: #### 9 9909, 45122, 84279, 83930 #### [facility] [address] [place] [address], [facility] eGFR- non- 36 ml/min/1.73sq m Abnormal >60 [facility] Comment on above: Order Comment: No: D o not add to previous draw Performed By: #### 9 9909, 70991, 43287, 61433 #### [facility] [address] [place] [address], [place] Glucose [Mass/Vol] 217 mg/dL High 70-100 [facility] Comment on above: Order Comment: No: D o not add to previous draw Performed By: #### 9 9909, 06669, 03822, 37812 #### [facility] [address] [place] [address], [place] Potassium [Moles/Vol] 4.2 mmol/L Normal 3.5-5.1 [facility] Comment on above: Order Comment: No: D o not add to previous draw Performed By: #### 9 9909, 55224, 61263, 33058 #### [facility] [address] [place] [address], [place] Sodium [Moles/Vol] 135 mmol/L Low 136-145 [facility] Comment on above: Order Comment: No: D o not add to previous draw Performed By: #### 9 9909, 92898, 38417, 44105 #### [facility] [address] [place] [address], [facility] Urea nitrogen [Mass/Vol] 53 mg/dL High 7-25 [facility] Comment on above: Order Comment: No: D o not add to previous draw Performed By: #### 9 9909, 00146, 52095, 67153 #### [facility] [address] [place] [address], [facility] POC GLUCOSE LABon 04-17-2021 Glucose [Mass/Vol] 274 mg/dL High 70-100 [facility] Comment on above: Performed By: #### 8 5499 #### [facility] [address] [place] [address], [facility] PROTHROMBIN TIMEon INR Coag (PPP) [Relative time] 1.76 {INR} High 0.91-1.16 [facility] Comment on above: Order Comment: [...] 1995;108:231S-246S. Performed By: #### 3 5200 #### [facility] [address] [place] [address], [place] PT Coag (PPP) [Time] 20.6 s High 12.3-14.8 [facility] Comment on above: Order Comment: No: D o not add to previous draw Result Comment: ALL RESULTS MUST BE INTERPRETED WITH RESPECT TO BLOOD DRAWING ARTIFACT OR DILUTION ERROR OF ANTICOAGULANT AT THE TIME OF SAMPLING. Performed By: #### 3 5200 #### [facility] [address] [place] [address], [place] INR Coag (PPP) [Relative time] 1.64 {INR} High 0.91-1.16 [facility] Comment on above: Order Comment: No: [...] 1995;108:[id number]. Performed By: #### 3 5200 #### [facility] [address] [place] [address], [place] PT Coag (PPP) [Time] 19.5 s High 12.3-14.8 [facility] Comment on above: Order Comment: No: D o not add to previous draw Result Comment: ALL RESULTS MUST BE INTERPRETED WITH RESPECT TO BLOOD DRAWING ARTIFACT OR DILUTION ERROR OF ANTICOAGULANT AT THE TIME OF SAMPLING. Performed By: #### 3 5200 #### [facility] [address] [place] [address], [facility] BASIC METABOLIC PANELon 05-2 Calcium [Mass/Vol] 10.0 mg/dL Normal 8.6-10.3 [facility] Comment on above: Order Comment: No: D o not add to previous draw Performed By: #### 1 69, 17379 #### [facility] [address] [place] [id number], [place] Chloride [Moles/Vol] 92 mmol/L Low 98-107 [facility] Comment on above: Order Comment: No: D o not add to previous draw Performed By: #### 1 69, 81737 #### [facility] [address] [place] [address], [place] CO2 [Moles/Vol] 35 mmol/L High 21-31 [facility] Comment on above: Order Comment: No: D o not add to previous draw Performed By: #### 1 69, 27356 #### [facility] [address] [place] [address], [place] Creatinine [Mass/Vol] 1.89 mg/dL High 0.70-1.30 [facility] Comment on above: Order Comment: No: D o not add to previous draw Performed By: #### 1 69, 92982 #### [facility] [address] [place] [address], [place] eGFR- 43 ml/min/1.73sq m Abnormal >60 [facility] Comment on above: Order Comment: No: D o not add to previous draw Performed By: #### 1 69, 27484 #### [facility] [address] eGFR- non- 36 ml/min/1.73sq m Abnormal >60 [facility] Comment on above: Order Comment: No: D o not add to previous draw Performed By: #### 1 69, 18882 #### [facility] [address] [place] [address], [place] Glucose [Mass/Vol] 187 mg/dL High 70-100 [facility] Comment on above: Order Comment: No: D o not add to previous draw Performed By: #### 1 69, 77951 #### [facility] [address] [place] [address], [facility] Potassium [Moles/Vol] 4.1 mmol/L Normal 3.5-5.1 [facility] Comment on above: Order Comment: No: D o not add to previous draw Performed By: #### 1 69, 24534 #### [facility] [address] [place] [address], [facility] Sodium [Moles/Vol] 137 mmol/L Normal 136-145 [facility] Comment on above: Order Comment: No: D o not add to previous draw Performed By: #### 1 69, 38372 #### [facility] [address] [place] [address], [facility] Urea nitrogen [Mass/Vol] 52 mg/dL High 7-25 [facility] Comment on above: Order Comment: No: D o not add to previous draw Performed By: #### 1 69, 31628 #### [facility] [address] [place] [address], [facility] CBC W/DIFFon 04-16-2021 ABS IMM GRANS 0.0 10*3/uL Normal 0.0-0.2 [facility] Comment on above: Order Comment: No: D o not add to previous draw Performed By: #### 3 5200 #### [facility] [address] [place] [address], [facility] ABS NEUTROPHILS 5.9 10*3/uL Normal 1.6-7.6 [facility] Comment on above: Order Comment: No: D o not add to previous draw Performed By: #### 3 5200 #### [facility] [address] [place] [address], [facility] Basophils (Bld) [#/Vol] 0.0 10*3/uL Normal 0.0-0.2 [facility] Comment on above: Order Comment: No: D o not add to previous draw Performed By: #### 3 5200 #### [facility] [address] [place] [address], [facility] Basophils/100 WBC (Bld) 0.3 % Normal 0.0-1.0 [facility] Comment on above: Order Comment: No: D o not add to previous draw Performed By: #### 3 5200 #### [facility] [address] [place] [address], [place] Eosinophils (Bld) [#/Vol] 0.4 10*3/uL Normal 0.0-0.5 [facility] Comment on above: Order Comment: No: D o not add to previous draw Performed By: #### 3 5200 #### [facility] [address] [place] [address], [facility] Eosinophils/100 WBC (Bld) 4.3 % Normal 0.0-6.0 [facility] Comment on above: Order Comment: No: D o not add to previous draw Performed By: #### 3 5200 #### [facility] [address] [place] [id number], [place] Erythrocyte distribution width (RBC) [Ratio] 16.1 % High 11.5-15.0 [facility] Comment on above: Order Comment: No: D o not add to previous draw Performed By: #### 3 5200 #### [facility] [address] [place] [address], [place] Hematocrit (Bld) [Volume fraction] 37.0 % Low 39.0-50.0 [facility] Comment on above: Order Comment: No: D o not add to previous draw Performed By: #### 3 5200 #### [facility] [address] [place] [address], [facility] Hemoglobin (Bld) [Mass/Vol] 11.4 g/dL Low 13.0-17.0 [facility] Comment on above: Order Comment: No: D o not add to previous draw Performed By: #### 3 5200 #### [facility] [address] [place] [address], [facility] IMMATURE GRANS 0.3 % Normal 0.0-1.0 [facility] Comment on above: Order Comment: No: D o not add to previous draw Performed By: #### 3 5200 #### [facility] [address] [place] [address], [facility] Lymphocytes (Bld) [#/Vol] 1.8 10*3/uL Normal 1.2-4.0 [facility] Comment on above: Order Comment: No: D o not add to previous draw Performed By: #### 3 5200 #### [facility] [address] [place] [id number], [facility] Lymphocytes/100 WBC (Bld) 20.7 % Normal 20.0-45.0 [facility] Comment on above: Order Comment: No: D o not add to previous draw Performed By: #### 3 5200 #### [facility] [address] [place] [address], [place] MCH (RBC) [Entitic mass] 27.1 pg Normal 27.0-33.0 [facility] Comment on above: Order Comment: No: D o not add to previous draw Performed By: #### 3 5200 #### [facility] [address] [place] [address], [place] MCHC (RBC) [Mass/Vol] 30.8 g/dL Low 32.0-35.0 [facility] Comment on above: Order Comment: No: D o not add to previous draw Performed By: #### 3 5200 #### [facility] [address] [place] [address], [facility] MCV (RBC) [Entitic vol] 88.1 fL Normal 82.0-98.0 [facility] Comment on above: Order Comment: No: D o not add to previous draw Performed By: #### 3 5200 #### [facility] [address] [place] [id number], [facility] Monocytes (Bld) [#/Vol] 0.7 10*3/uL Normal 0.1-1.0 [facility] Comment on above: Order Comment: No: D o not add to previous draw Performed By: #### 3 5200 #### [facility] [address] [place] [address], [facility] MONOS 7.9 % Normal 5.0-12.0 [facility] Comment on above: Order Comment: No: D o not add to previous draw Performed By: #### 3 5200 #### [facility] [address] [place] [address], [facility] Neutrophils/100 WBC (Bld) 66.5 % Normal 40.0-72.0 [facility] Comment on above: Order Comment: No: D o not add to previous draw Performed By: #### 3 5200 #### [facility] [address] [place] [address], [facility] Nucleated RBC/100 WBC (Bld) [Ratio] 0 % Normal 0-0 [facility] Comment on above: Order Comment: No: D o not add to previous draw Performed By: #### 3 5200 #### [facility] [address] [place] [address], [facility] PLAT CNT 189 10*3/uL Normal 150-400 [facility] Comment on above: Order Comment: No: D o not add to previous draw Performed By: #### 3 5200 #### [facility] [address] [place] [address], [facility] RBC (Bld) [#/Vol] 4.20 10*6/uL Normal 4.20-5.70 [facility] Comment on above: Order Comment: No: D o not add to previous draw Performed By: #### 3 5200 #### [facility] [address] [place] [address], [place] WBC (Bld) [#/Vol] 8.82 10*3/uL Normal 4.00-10.60 [facility] Comment on above: Order Comment: No: D o not add to previous draw Performed By: #### 3 5200 #### [facility] [address] [place] [address], [facility] HEMOGLOBIN A1Con 04-16-2021 Glucose [Moles/Vol] 180 mmol/L Normal [facility] Comment on above: Order Comment: Yes: Add to Previous draw if able Performed By: #### 8 [id number] #### [facility] [address] [place] [address], [facility] HbA1c (Bld) [Mass fraction] 7.9 % High 4.0-6.0 [facility] Comment on above: Order Comment: Yes: Add to Previous draw if able Performed By: #### 8 [id number] #### [facility] [address] [place] [address], [facility] MAGNESIUM BLOODon 04-16-2021 Magnesium [Mass/Vol] 2.3 mg/dL Normal 1.9-2.7 [facility] Comment on above: Order Comment: No: D o not add to previous draw Performed By: #### 1 0070, 91081 #### [facility] [address] [place] [address], [place] POC GLUCOSE LABon 04-16-2021 Glucose [Mass/Vol] 357 mg/dL High 70-100 [facility] Comment on above: Performed By: #### 8 5499 #### [facility] [address] [address], [facility] Glucose [Mass/Vol] 149 mg/dL High 70-100 [facility] Comment on above: Performed By: #### 9 9909, 28890, 18329, 92683 #### [facility] [address] [facility] [place] [address], [facility] Glucose [Mass/Vol] 243 mg/dL High 70-100 [facility] Comment on above: Performed By: #### 8 5499 #### [facility] [address] [facility] [place] [address], [facility] Glucose [Mass/Vol] 181 mg/dL High 70-100 [facility] Comment on above: Performed By: #### 9 9909, 09322, 58507, 85241 #### [facility] [address] [place], [place] [id number] [place] [address] PROTHROMBIN TIMEon 1 INR Coag (PPP) [Relative time] 1.63 {INR} High 0.91-1.16 [facility] Comment on above: Order Comment: [...] 1995;108:231S-246S. Performed By: #### 3 5200 #### [facility] [address] [place] [address], [facility] PT Coag (PPP) [Time] 19.4 s High 12.3-14.8 [facility] Comment on above: Order Comment: No: D o not add to previous draw Result Comment: ALL RESULTS MUST BE INTERPRETED WITH RESPECT TO BLOOD DRAWING ARTIFACT OR DILUTION ERROR OF ANTICOAGULANT AT THE TIME OF SAMPLING. Performed By: #### 3 5200 #### [facility] [address] [place] [address], [facility] INR Coag (PPP) [Relative time] 1.66 {INR} High 0.91-1.16 [facility] Comment on above: Order Comment: No: [...] RANGE. CHEST 1995;108:231S-246S. Performed By: #### 3 5207 #### [facility] [address] [place] [address], [facility] PT Coag (PPP) [Time] 19.7 s High 12.3-14.8 [facility] Comment on above: Order Comment: No: D o not add to previous draw Result Comment: ALL RESULTS MUST BE INTERPRETED WITH RESPECT TO BLOOD DRAWING ARTIFACT OR DILUTION ERROR OF ANTICOAGULANT AT THE TIME OF SAMPLING. Performed By: #### 3 5200 #### [facility] [address] [place] [address], [facility] BASIC METABOLIC PANELon 05-2 Calcium [Mass/Vol] 9.7 mg/dL Normal 8.6-10.3 [facility] Comment on above: Order Comment: No: D o not add to previous draw Performed By: #### 9 9909, 59886, 31814, 00524 #### [facility] [address] [place] [address], [facility] Chloride [Moles/Vol] 92 mmol/L Low 98-107 [facility] Comment on above: Order Comment: No: D o not add to previous draw Performed By: #### 9 9909, 67142, 91640, 98595 #### [facility] [address] [place] [address], [facility] CO2 [Moles/Vol] 36 mmol/L High 21-31 [facility] Comment on above: Order Comment: No: D o not add to previous draw Performed By: #### 9 9909, 08924, 05410, 57601 #### [facility] [address] [place] [address], [facility] Creatinine [Mass/Vol] 1.86 mg/dL High 0.70-1.30 [facility] Comment on above: Order Comment: No: D o not add to previous draw Performed By: #### 9 9909, 59659, 30510, 82556 #### [facility] [address] [place] [address], [facility] eGFR- 44 ml/min/1.73sq m Abnormal >60 [facility] Comment on above: Order Comment: No: D o not add to previous draw Performed By: #### 9 9909, 63170, 87447, 86079 #### [facility] [address] [place] [address], [facility] eGFR- non- 37 ml/min/1.73sq m Abnormal >60 [facility] Comment on above: Order Comment: No: D o not add to previous draw Performed By: #### 9 9909, 76691, 51279, 62528 #### [facility] [address] [place] [address], [place] Glucose [Mass/Vol] 167 mg/dL High 70-100 [facility] Comment on above: Order Comment: No: D o not add to previous draw Performed By: #### 9 9909, 24968, 90084, 41162 #### [facility] [address] [place] [address], [place] Potassium [Moles/Vol] 4.0 mmol/L Normal 3.5-5.1 [facility] Comment on above: Order Comment: No: D o not add to previous draw Performed By: #### 9 9909, 25417, 85878, 48439 #### [facility] [address] [place] [address], [place] Sodium [Moles/Vol] 138 mmol/L Normal 136-145 [facility] Comment on above: Order Comment: No: D o not add to previous draw Performed By: #### 9 9909, 78542, 44719, 14143 #### [facility] [address] [place] [address], [place] Urea nitrogen [Mass/Vol] 44 mg/dL High 7-25 [facility] Comment on above: Order Comment: No: D o not add to previous draw Performed By: #### 9 9909, 28642, 23062, 96127 #### [facility] [address] [place] [address], [place] CBC W/DIFFon 04-15-2021 ABS IMM GRANS 0.0 10*3/uL Normal 0.0-0.2 [facility] Comment on above: Order Comment: No: D o not add to previous draw Performed By: #### 3 5200 #### [facility] [address] [place] [address], [facility] ABS NEUTROPHILS 6.3 10*3/uL Normal 1.6-7.6 [facility] Comment on above: Order Comment: No: D o not add to previous draw Performed By: #### 3 5200 #### [facility] [address] [place] [address], [facility] Basophils (Bld) [#/Vol] 0.0 10*3/uL Normal 0.0-0.2 [facility] Comment on above: Order Comment: No: D o not add to previous draw Performed By: #### 3 5200 #### [facility] [address] [place] [address], [facility] Basophils/100 WBC (Bld) 0.3 % Normal 0.0-1.0 [facility] Comment on above: Order Comment: No: D o not add to previous draw Performed By: #### 3 5200 #### [facility] [address] [place] [address], [facility] Eosinophils (Bld) [#/Vol] 0.4 10*3/uL Normal 0.0-0.5 [facility] Comment on above: Order Comment: No: D o not add to previous draw Performed By: #### 3 5200 #### [facility] [address] [place] [address], [facility] Eosinophils/100 WBC (Bld) 4.5 % Normal 0.0-6.0 [facility] Comment on above: Order Comment: No: D o not add to previous draw Performed By: #### 3 5200 #### [facility] [address] [place], [address] Erythrocyte distribution width (RBC) [Ratio] 16.3 % High 11.5-15.0 [facility] Comment on above: Order Comment: No: D o not add to previous draw Performed By: #### 3 5200 #### [facility] [address] [place] [address], [facility] Hematocrit (Bld) [Volume fraction] 37.4 % Low 39.0-50.0 [facility] Comment on above: Order Comment: No: D o not add to previous draw Performed By: #### 3 5200 #### [facility] [address] [place] [address], [facility] Hemoglobin (Bld) [Mass/Vol] 11.4 g/dL Low 13.0-17.0 [facility] Comment on above: Order Comment: No: D o not add to previous draw Performed By: #### 3 5200 #### [facility] [address] [place] [address], [facility] IMMATURE GRANS 0.3 % Normal 0.0-1.0 [facility] Comment on above: Order Comment: No: D o not add to previous draw Performed By: #### 3 5200 #### [facility] [address] [place] [address], [facility] Lymphocytes (Bld) [#/Vol] 1.8 10*3/uL Normal 1.2-4.0 [facility] Comment on above: Order Comment: No: D o not add to previous draw Performed By: #### 3 5200 #### [facility] [address] [place] [id number], [facility] Lymphocytes/100 WBC (Bld) 19.1 % Low 20.0-45.0 [facility] Comment on above: Order Comment: No: D o not add to previous draw Performed By: #### 3 5200 #### [facility] [address] [place] [id number], [facility] MCH (RBC) [Entitic mass] 27.2 pg Normal 27.0-33.0 [facility] Comment on above: Order Comment: No: D o not add to previous draw Performed By: #### 3 5200 #### [facility] [address] [place] [id number], [facility] MCHC (RBC) [Mass/Vol] 30.5 g/dL Low 32.0-35.0 [facility] Comment on above: Order Comment: No: D o not add to previous draw Performed By: #### 3 5200 #### [facility] [address] [place] [address], [facility] MCV (RBC) [Entitic vol] 89.3 fL Normal 82.0-98.0 [facility] Comment on above: Order Comment: No: D o not add to previous draw Performed By: #### 3 5200 #### [facility] [address] [place] [address], [facility] Monocytes (Bld) [#/Vol] 0.7 10*3/uL Normal 0.1-1.0 [facility] Comment on above: Order Comment: No: D o not add to previous draw Performed By: #### 3 5200 #### [facility] [address] [place] [address], [facility] MONOS 7.4 % Normal 5.0-12.0 [facility] Comment on above: Order Comment: No: D o not add to previous draw Performed By: #### 3 5200 #### [facility] [address] [place] [address], [facility] Neutrophils/100 WBC (Bld) 68.4 % Normal 40.0-72.0 [facility] Comment on above: Order Comment: No: D o not add to previous draw Performed By: #### 3 5200 #### [facility] [address] [place] [address], [facility] Nucleated RBC/100 WBC (Bld) [Ratio] 0 % Normal 0-0 [facility] Comment on above: Order Comment: No: D o not add to previous draw Performed By: #### 3 5200 #### [facility] [address] [place] [address], [place] PLAT CNT 177 10*3/uL Normal 150-400 [facility] Comment on above: Order Comment: No: D o not add to previous draw Performed By: #### 3 5200 #### [facility] [address] [place] [address], [place] RBC (Bld) [#/Vol] 4.19 10*6/uL Low 4.20-5.70 [facility] Comment on above: Order Comment: No: D o not add to previous draw Performed By: #### 3 5200 #### [facility] [address] [place] [address], [place] WBC (Bld) [#/Vol] 9.21 10*3/uL Normal 4.00-10.60 [facility] Comment on above: Order Comment: No: D o not add to previous draw Performed By: #### 3 5200 #### [facility] [address] [place] [address], [facility] MAGNESIUM BLOODon 04-15-2021 Magnesium [Mass/Vol] 2.3 mg/dL Normal 1.9-2.7 [facility] Comment on above: Order Comment: No: D o not add to previous draw Performed By: #### 9 9909, 19150, 28350, 88571 #### [facility] [address] [place] [address], [place] POC GLUCOSE LABon 04-15-2021 Glucose [Mass/Vol] 230 mg/dL High 70-100 [facility] Comment on above: Performed By: #### 8 5499 #### [facility] [address] [place] [address], [place] Glucose [Mass/Vol] 260 mg/dL High 70-100 [facility] Comment on above: Performed By: #### 8 5499 #### [facility] [address] [place] [address], [facility] Glucose [Mass/Vol] 273 mg/dL High 70-100 [facility] Comment on above: Performed By: #### 9 9909, 77993, 74844, 79037 #### [facility] [address] [place] [address], [facility] Glucose [Mass/Vol] 168 mg/dL High 70-100 [facility] Comment on above: Performed By: #### 8 5499 #### [facility] [address] [address], [facility] PROTHROMBIN TIMEon 1 INR Coag (PPP) [Relative time] 1.77 {INR} High 0.91-1.16 [facility] Comment on above: Order Comment: [...] 1995;108:231S-246S. Performed By: #### 3 5200 #### [facility] [address] [place] [address], [facility] PT Coag (PPP) [Time] 20.7 s High 12.3-14.8 [facility] Comment on above: Order Comment: No: D o not add to previous draw Result Comment: ALL RESULTS MUST BE INTERPRETED WITH RESPECT TO BLOOD DRAWING ARTIFACT OR DILUTION ERROR OF ANTICOAGULANT AT THE TIME OF SAMPLING. Performed By: #### 3 5200 #### [facility] [address] [place] [address], [facility] INR Coag (PPP) [Relative time] 1.80 {INR} High 0.91-1.16 [facility] Comment on above: Order Comment: Unkno [...] 1995;108:231S-246S. Performed By: #### 8 5499 #### [facility] [address] [place] [address], [facility] PT Coag (PPP) [Time] 21.0 s High 12.3-14.8 [facility] Comment on above: Order Comment: Unkno wn Result Comment: ALL RESULTS MUST BE INTERPRETED WITH RESPECT TO BLOOD DRAWING ARTIFACT OR DILUTION ERROR OF ANTICOAGULANT AT THE TIME OF SAMPLING. Performed By: #### 8 0719 #### [facility] [address] [place] [address], [facility] BASIC METABOLIC PANELon 05-2 Calcium [Mass/Vol] 9.4 mg/dL Normal 8.6-10.3 [facility] Comment on above: Order Comment: No: D o not add to previous draw Performed By: #### 8 5499 #### [facility] [address] [place] [address], [place] Chloride [Moles/Vol] 95 mmol/L Low 98-107 [facility] Comment on above: Order Comment: No: D o not add to previous draw Performed By: #### 8 5499 #### [facility] [address] [place] [address], [place] CO2 [Moles/Vol] 35 mmol/L High 21-31 [facility] Comment on above: Order Comment: No: D o not add to previous draw Performed By: #### 8 5499 #### [facility] [address] [place] [address], [place] Creatinine [Mass/Vol] 1.77 mg/dL High 0.70-1.30 [facility] Comment on above: Order Comment: No: D o not add to previous draw Performed By: #### 8 5499 #### [facility] [address] [place] [address], [place] eGFR- 47 ml/min/1.73sq m Abnormal >60 [facility] Comment on above: Order Comment: No: D o not add to previous draw Performed By: #### 8 5499 #### [facility] [address] [place] [address], [place] eGFR- non- 39 ml/min/1.73sq m Abnormal >60 [facility] Comment on above: Order Comment: No: D o not add to previous draw Performed By: #### 8 5499 #### [facility] [address] [place] [address], [place] Glucose [Mass/Vol] 135 mg/dL High 70-100 [facility] Comment on above: Order Comment: No: D o not add to previous draw Performed By: #### 8 5499 #### [facility] [address] [place] [address], [facility] Potassium [Moles/Vol] 3.7 mmol/L Normal 3.5-5.1 [facility] Comment on above: Order Comment: No: D o not add to previous draw Performed By: #### 8 5499 #### [facility] [address] [place] [address], [facility] Sodium [Moles/Vol] 140 mmol/L Normal 136-145 [facility] Comment on above: Order Comment: No: D o not add to previous draw Performed By: #### 8 5499 #### [facility] [address] Urea nitrogen [Mass/Vol] 43 mg/dL High 7-25 [facility] Comment on above: Order Comment: No: D o not add to previous draw Performed By: #### 8 5499 #### [facility] [address] [place] [address], [facility] CBC W/DIFFon 04-14-2021 ABS IMM GRANS 0.0 10*3/uL Normal 0.0-0.2 [facility] Comment on above: Order Comment: No: D o not add to previous draw Performed By: #### 8 [id number] #### [facility] [address] [place] [address], [facility] ABS NEUTROPHILS 6.4 10*3/uL Normal 1.6-7.6 [facility] Comment on above: Order Comment: No: D o not add to previous draw Performed By: #### 8 5499 #### [facility] [address] [place] [address], [facility] Basophils (Bld) [#/Vol] 0.0 10*3/uL Normal 0.0-0.2 [facility] Comment on above: Order Comment: No: D o not add to previous draw Performed By: #### 8 5499 #### [facility] [address] [place] [id number], [facility] Basophils/100 WBC (Bld) 0.3 % Normal 0.0-1.0 [facility] Comment on above: Order Comment: No: D o not add to previous draw Performed By: #### 8 5499 #### [facility] [address] [place] [address], [facility] Eosinophils (Bld) [#/Vol] 0.4 10*3/uL Normal 0.0-0.5 [facility] Comment on above: Order Comment: No: D o not add to previous draw Performed By: #### 8 5499 #### [facility] [address] [place] [id number], [facility] Eosinophils/100 WBC (Bld) 4.0 % Normal 0.0-6.0 [facility] Comment on above: Order Comment: No: D o not add to previous draw Performed By: #### 8 [id number] #### [facility] [address] [address], [facility] Erythrocyte distribution width (RBC) [Ratio] 16.6 % High 11.5-15.0 [facility] Comment on above: Order Comment: No: D o not add to previous draw Performed By: #### 8 5499 #### [facility] [address] [place] [id number], [facility] Hematocrit (Bld) [Volume fraction] 35.5 % Low 39.0-50.0 [facility] Comment on above: Order Comment: No: D o not add to previous draw Performed By: #### 8 5499 #### [facility] [address] [place] [id number], [facility] Hemoglobin (Bld) [Mass/Vol] 10.9 g/dL Low 13.0-17.0 [facility] Comment on above: Order Comment: No: D o not add to previous draw Performed By: #### 8 5499 #### [facility] [address] [place] [address], [facility] IMMATURE GRANS 0.3 % Normal 0.0-1.0 [facility] Comment on above: Order Comment: No: D o not add to previous draw Performed By: #### 8 5499 #### [facility] [address] [place] [address], [facility] Lymphocytes (Bld) [#/Vol] 1.6 10*3/uL Normal 1.2-4.0 [facility] Comment on above: Order Comment: No: D o not add to previous draw Performed By: #### 8 5499 #### [facility] [address] [place] [address], [facility] Lymphocytes/100 WBC (Bld) 17.3 % Low 20.0-45.0 [facility] Comment on above: Order Comment: No: D o not add to previous draw Performed By: #### 8 [id number] #### [facility] [address] [place] [address], [facility] MCH (RBC) [Entitic mass] 27.0 pg Normal 27.0-33.0 [facility] Comment on above: Order Comment: No: D o not add to previous draw Performed By: #### 8 [id number] #### [facility] [address] [place] [address], [facility] MCHC (RBC) [Mass/Vol] 30.7 g/dL Low 32.0-35.0 [facility] Comment on above: Order Comment: No: D o not add to previous draw Performed By: #### 8 [id number] #### [facility] [address] [place] [id number], [facility] MCV (RBC) [Entitic vol] 88.1 fL Normal 82.0-98.0 [facility] Comment on above: Order Comment: No: D o not add to previous draw Performed By: #### 8 [id number] #### [facility] [address] [place] [address], [facility] Monocytes (Bld) [#/Vol] 0.7 10*3/uL Normal 0.1-1.0 [facility] Comment on above: Order Comment: No: D o not add to previous draw Performed By: #### 8 [id number] #### [facility] [address] [place] [address], [facility] MONOS 7.6 % Normal 5.0-12.0 [facility] Comment on above: Order Comment: No: D o not add to previous draw Performed By: #### 8 [id number] #### [facility] [address] [place] [id number], [facility] Neutrophils/100 WBC (Bld) 70.5 % Normal 40.0-72.0 [facility] Comment on above: Order Comment: No: D o not add to previous draw Performed By: #### 8 [id number] #### [facility] [address] [place] [address], [facility] Nucleated RBC/100 WBC (Bld) [Ratio] 0 % Normal 0-0 [facility] Comment on above: Order Comment: No: D o not add to previous draw Performed By: #### 8 [id number] #### [facility] [address] [facility] [place] [id number], [facility] PLAT CNT 157 10*3/uL Normal 150-400 [facility] Comment on above: Order Comment: No: D o not add to previous draw Performed By: #### 8 [id number] #### [facility] [address] [place] [id number], [facility] RBC (Bld) [#/Vol] 4.03 10*6/uL Low 4.20-5.70 [facility] Comment on above: Order Comment: No: D o not add to previous draw Performed By: #### 8 [id number] #### [facility] [address] [place] [address], [facility] HOSPITAL WBC (Bld) [#/Vol] 9.10 10*3/uL Normal 4.00-10.60 [facility] Comment on above: Order Comment: No: D o not add to previous draw Performed By: #### 8 [id number] #### [facility] [address] [place] [address], [facility] DIGOXINon 04-14-2021 Digoxin [Mass/Vol] 1.0 ng/mL Normal 0.7-2.0 [facility] Comment on above: Order Comment: Yes: Add to Previous draw if able Performed By: #### 8 [id number] #### [facility] [address] [place] [address], [facility] MAGNESIUM BLOODon 04-14-2021 Magnesium [Mass/Vol] 2.2 mg/dL Normal 1.9-2.7 [facility] Comment on above: Order Comment: No: D o not add to previous draw Performed By: #### 8 [id number] #### [facility] [address] [place] [address], [facility] POC GLUCOSE LABon 04-14-2021 Glucose [Mass/Vol] 194 mg/dL High 70-100 [facility] Comment on above: Performed By: #### 8 [id number] #### [facility] [address] [place] [address], [facility] Glucose [Mass/Vol] 188 mg/dL High 70-100 [facility] Comment on above: Performed By: #### 9 9909, 89621, 09385, 01158 #### [facility] [address] [place] [address], [facility] Glucose [Mass/Vol] 130 mg/dL High 70-100 [facility] Comment on above: Performed By: #### 9 9909, 96261, 36009, 46332 #### [facility] [address] [place] [address], [facility] PROTHROMBIN TIMEon 1 INR Coag (PPP) [Relative time] 1.92 {INR} High 0.91-1.16 [facility] Comment on above: Order Comment: No: [...] CHEST 1995;108:231S-246S. Performed By: #### 9 9909, 70316, 55730, 39356 #### [facility] [address] [place] [address], [facility] PT Coag (PPP) [Time] 22.1 s High 12.3-14.8 [facility] Comment on above: Order Comment: No: D o not add to previous draw Result Comment: ALL RESULTS MUST BE INTERPRETED WITH RESPECT TO BLOOD DRAWING ARTIFACT OR DILUTION ERROR OF ANTICOAGULANT AT THE TIME OF SAMPLING. Performed By: #### 9 9909, 87810, 90756, 40073 #### [facility] [address] [place] [address], [facility] INR Coag (PPP) [Relative time] 1.83 {INR} High 0.91-1.16 [facility] Comment on above: Order Comment: No: [...] 1995;108:231S-246S. Performed By: #### 3 5200 #### [facility] [address] [place] [address], [facility] PT Coag (PPP) [Time] 21.2 s High 12.3-14.8 [facility] Comment on above: Order Comment: No: D o not add to previous draw Result Comment: ALL RESULTS MUST BE INTERPRETED WITH RESPECT TO BLOOD DRAWING ARTIFACT OR DILUTION ERROR OF ANTICOAGULANT AT THE TIME OF SAMPLING. Performed By: #### 3 5200 #### [facility] [address] [place] [address], [facility] BASIC METABOLIC PANELon 05-2 Calcium [Mass/Vol] 8.5 mg/dL Low 8.6-10.3 [facility] Comment on above: Order Comment: No: D o not add to previous draw Performed By: #### 9 9909, 20730, 77284, 66703 #### [facility] [address] [place] [address], [place] Chloride [Moles/Vol] 98 mmol/L Normal 98-107 [facility] Comment on above: Order Comment: No: D o not add to previous draw Performed By: #### 9 9909, 46302, 71283, 47025 #### [facility] [address] [place] [address], [facility] CO2 [Moles/Vol] 32 mmol/L High 21-31 [facility] Comment on above: Order Comment: No: D o not add to previous draw Performed By: #### 9 9909, 96201, 55140, 55770 #### [facility] [address] [place] [address], [facility] Creatinine [Mass/Vol] 1.77 mg/dL High 0.70-1.30 [facility] Comment on above: Order Comment: No: D o not add to previous draw Performed By: #### 9 9909, 97770, 38283, 19328 #### [facility] [address] [place] [address], [facility] eGFR- 47 ml/min/1.73sq m Abnormal >60 [facility] Comment on above: Order Comment: No: D o not add to previous draw Performed By: #### 9 9909, 13459, 16295, 50237 #### [facility] [address] [place] [address], [facility] eGFR- non- 39 ml/min/1.73sq m Abnormal >60 [facility] Comment on above: Order Comment: No: D o not add to previous draw Performed By: #### 9 9909, 04377, 44073, 99953 #### [facility] [address] [place] [address], [place] Glucose [Mass/Vol] 129 mg/dL High 70-100 [facility] Comment on above: Order Comment: No: D o not add to previous draw Performed By: #### 9 9909, 07874, 37882, 19246 #### [facility] [address] [place] [address], [facility] Potassium [Moles/Vol] 3.8 mmol/L Normal 3.5-5.1 [facility] Comment on above: Order Comment: No: D o not add to previous draw Performed By: #### 9 9909, 94634, 15677, 96753 #### [facility] [address] [place] [address], [facility] Sodium [Moles/Vol] 138 mmol/L Normal 136-145 [facility] Comment on above: Order Comment: No: D o not add to previous draw Performed By: #### 9 9909, 95912, 64019, 00905 #### [facility] [address] [place] [address], [facility] Urea nitrogen [Mass/Vol] 39 mg/dL High 7-25 [facility] Comment on above: Order Comment: No: D o not add to previous draw Performed By: #### 9 9909, 68236, 34961, 90082 #### [facility] [address] [place] [address], [facility] CBC COMPLETE BLOOD COUNTon - Erythrocyte distribution width (RBC) [Ratio] 16.8 % High 11.5-15.0 [facility] Comment on above: Order Comment: No: D o not add to previous draw Performed By: #### 8 [id number] #### [facility] [address] [place] [address], [facility] Hematocrit (Bld) [Volume fraction] 33.7 % Low 39.0-50.0 [facility] Comment on above: Order Comment: No: D o not add to previous draw Performed By: #### 8 5499 #### [facility] [address] [place] [address], [facility] Hemoglobin (Bld) [Mass/Vol] 10.2 g/dL Low 13.0-17.0 [facility] Comment on above: Order Comment: No: D o not add to previous draw Performed By: #### 8 5499 #### [facility] [address] [place] [address], [facility] MCH (RBC) [Entitic mass] 27.1 pg Normal 27.0-33.0 [facility] Comment on above: Order Comment: No: D o not add to previous draw Performed By: #### 8 5499 #### [facility] [address] [place] [address], [facility] MCHC (RBC) [Mass/Vol] 30.3 g/dL Low 32.0-35.0 [facility] Comment on above: Order Comment: No: D o not add to previous draw Performed By: #### 8 5499 #### [facility] [address] [place] [id number], [facility] MCV (RBC) [Entitic vol] 89.6 fL Normal 82.0-98.0 [facility] Comment on above: Order Comment: No: D o not add to previous draw Performed By: #### 8 5499 #### [facility] [address] [place] [id number], [facility] Nucleated RBC/100 WBC (Bld) [Ratio] 0 % Normal 0-0 [facility] Comment on above: Order Comment: No: D o not add to previous draw Performed By: #### 8 [id number] #### [facility] [address] [place] [id number], [facility] PLAT CNT 131 10*3/uL Low 150-400 [facility] Comment on above: Order Comment: No: D o not add to previous draw Performed By: #### 8 5499 #### [facility] [address] [place] [id number], [facility] RBC (Bld) [#/Vol] 3.76 10*6/uL Low 4.20-5.70 [facility] Comment on above: Order Comment: No: D o not add to previous draw Performed By: #### 8 5499 #### [facility] [address] [place] [address], [place] WBC (Bld) [#/Vol] 11.41 10*3/uL High 4.00-10.60 [facility] Comment on above: Order Comment: No: D o not add to previous draw Performed By: #### 8 5499 #### [facility] [address] [place] [address], [place] MAGNESIUM BLOODon 04-13-2021 Magnesium [Mass/Vol] 2.3 mg/dL Normal 1.9-2.7 [facility] Comment on above: Order Comment: No: D o not add to previous draw Performed By: #### 9 9909, 82749, 26544, 04614 #### [facility] [address] [place] [address], [place] POC GLUCOSE LABon 04-13-2021 Glucose [Mass/Vol] 210 mg/dL High 70-100 [facility] Comment on above: Performed By: #### 8 5499 #### [facility] [address] [place] [address], [place] Glucose [Mass/Vol] 90 mg/dL Normal 70-100 [facility] Comment on above: Performed By: #### 9 9909, 94304, 94192, 17593 #### [facility] [address] [place] [address], [place] Glucose [Mass/Vol] 104 mg/dL High 70-100 [facility] Comment on above: Performed By: #### 8 5499 #### [facility] [address] [place] [address], [place] Glucose [Mass/Vol] 77 mg/dL Normal 70-100 [facility] Comment on above: Performed By: #### 9 9909, 51226, 14385, 04415 #### [facility] [address] [place] [address], [place] Glucose [Mass/Vol] 113 mg/dL High 70-100 [facility] Comment on above: Performed By: #### 9 9909, 04219, 38638, 96184 #### [facility] [address] [place] [address], [facility] PROTHROMBIN TIMEon INR Coag (PPP) [Relative time] 2.19 {INR} High 0.91-1.16 [facility] Comment on above: Order Comment: No: [...] RANGE. CHEST 1995;108:231S-246S. Performed By: #### 3 0050 #### [facility] [address] [place] [address], [facility] PT Coag (PPP) [Time] 24.5 s High 12.3-14.8 [facility] Comment on above: Order Comment: No: D o not add to previous draw Result Comment: ALL RESULTS MUST BE INTERPRETED WITH RESPECT TO BLOOD DRAWING ARTIFACT OR DILUTION ERROR OF ANTICOAGULANT AT THE TIME OF SAMPLING. Performed By: #### 3 5200 #### [facility] [address] [place] [address], [facility] TROPONIN-Ion 04-13-2021 Troponin I.cardiac [Mass/Vol] 0.05 ng/mL High 0.00-0.04 [facility] Comment on above: Order Comment: No: D o not add to previous draw Result Comment: REFE RENCE RANGES: 0.00 - 0.04 ng/ml NORMAL 0.05 - 0.50 ng/ml INDETERMINATE > 0.50 ng/ml CONSISTENT WITH AN M.I. Performed By: #### 3 5200 #### [address] US ABDOMEN LIMITED FOR ASCIT ESon 04-13-2021 US ABDOMEN LIMITED FOR ASCITES [facility] Department of Radiology [address] [place] [id number] Patient Name: ADWOA PORTER : 1955 Sex: M Age: Race: White Pt. Location: [id number] Patient Status: I Ordered Date: 04/13/2021 3:45:00 [...] reports Electronically signed: Shannon Weathers. Transcribed by: [email or web address], User Resident: BIANCA NICOLE Electronically Signed by: SHANNON WEATHERS @ 04/13/2021 04:07 PM I personally read this/these film(s) with this resident Normal [facility] Comment on above: Order Comment: No: D o not add to previous draw *BLOOD CULTUREon 04-12-2021 *BLOOD CULTURE Clinical Report: (D) Specimen: BLOOD CULTURE Collected: 04/12/2021 20:24 Status: Final Last Updated: 04/18/2021 07:10 (1) Right AC 2019 CULT RES (Final) No Growth Day 5 Normal [facility] Comment on above: Order Comment: Right AC 2018 Performed By: #### 8 [id number] #### [facility] [address] *BLOOD CULTURE Clinical Report: (D) Specimen: BLOOD CULTURE Collected: 04/12/2021 20:24 Status: Final Last Updated: 04/18/2021 07:10 (1) Left AC 2021 CULT RES (Final) No Growth Day 5 Normal [facility] Comment on above: Order Comment: Left AC 2021 Performed By: #### 8 [id number] #### [facility] [address] BNP (B-TYPE NATRIURETIC PEPT JJ)on 04-12-2021 Natriuretic peptide B (Bld) [Mass/Vol] 502 pg/mL High 0-100 [facility] Comment on above: Order Comment: No: D o not add to previous draw Result Comment: Give n the appropriate clinical setting a BNP result of >100 pg/mL indicates congestive heart failure. Performed By: #### 9 9909, 58859, 51847, 54784 #### [facility] [address] [place] [address], [facility] CBC W/DIFFon 04-12-2021 ABS IMM GRANS 0.1 10*3/uL Normal 0.0-0.2 [facility] Comment on above: Performed By: #### 8 5499 #### [facility] [address] [place] [address], [facility] ABS NEUTROPHILS 10.5 10*3/uL High 1.6-7.6 [facility] Comment on above: Performed By: #### 8 5499 #### [facility] [address] [place] [address], [facility] Basophils (Bld) [#/Vol] 0.0 10*3/uL Normal 0.0-0.2 [facility] Comment on above: Performed By: #### 8 5499 #### [facility] [address] [place] [id number], [facility] Basophils/100 WBC (Bld) 0.2 % Normal 0.0-1.0 [facility] Comment on above: Performed By: #### 8 5499 #### [facility] [address] [address], [facility] Eosinophils (Bld) [#/Vol] 0.3 10*3/uL Normal 0.0-0.5 [facility] Comment on above: Performed By: #### 8 5499 #### [facility] [address] [address], [facility] Eosinophils/100 WBC (Bld) 2.1 % Normal 0.0-6.0 [facility] Comment on above: Performed By: #### 8 5499 #### [facility] [address] [address], [facility] Erythrocyte distribution width (RBC) [Ratio] 17.1 % High 11.5-15.0 [facility] Comment on above: Performed By: #### 8 5499 #### [facility] [address] [place] [address], [facility] Hematocrit (Bld) [Volume fraction] 34.8 % Low 39.0-50.0 [facility] Comment on above: Performed By: #### 8 5499 #### [facility] [address] [place] [address], [facility] Hemoglobin (Bld) [Mass/Vol] 10.6 g/dL Low 13.0-17.0 [facility] Comment on above: Performed By: #### 8 5499 #### [facility] [address] [place] [address], [facility] IMMATURE GRANS 0.4 % Normal 0.0-1.0 [facility] Comment on above: Performed By: #### 8 5499 #### [facility] [address] [facility] [address] Lymphocytes (Bld) [#/Vol] 1.4 10*3/uL Normal 1.2-4.0 [facility] Comment on above: Performed By: #### 8 5499 #### [facility] [address] Lymphocytes/100 WBC (Bld) 10.5 % Low 20.0-45.0 [facility] Comment on above: Performed By: #### 8 5499 #### [facility] [address] [facility] [address] MCH (RBC) [Entitic mass] 27.3 pg Normal 27.0-33.0 [facility] Comment on above: Performed By: #### 8 5499 #### [facility] [address] [place] [address], [facility] MCHC (RBC) [Mass/Vol] 30.5 g/dL Low 32.0-35.0 [facility] Comment on above: Performed By: #### 8 5499 #### [facility] [address] [place] [address], [facility] MCV (RBC) [Entitic vol] 89.7 fL Normal 82.0-98.0 [facility] Comment on above: Performed By: #### 8 5499 #### [facility] [address] [place] [address], [facility] Monocytes (Bld) [#/Vol] 0.8 10*3/uL Normal 0.1-1.0 [facility] Comment on above: Performed By: #### 8 5499 #### [facility] [address] [place] [address], [facility] MONOS 6.4 % Normal 5.0-12.0 [facility] Comment on above: Performed By: #### 8 5499 #### [facility] [address] [place] [address], [facility] Neutrophils/100 WBC (Bld) 80.4 % High 40.0-72.0 [facility] Comment on above: Performed By: #### 8 5499 #### [facility] [address] Nucleated RBC/100 WBC (Bld) [Ratio] 0 % Normal 0-0 [facility] Comment on above: Performed By: #### 8 5499 #### [facility] [address] [place] [address], [facility] PLAT CNT 138 10*3/uL Low 150-400 [facility] Comment on above: Performed By: #### 8 5499 #### [facility] [address] [place] [address], [facility] RBC (Bld) [#/Vol] 3.88 10*6/uL Low 4.20-5.70 [facility] Comment on above: Performed By: #### 8 5499 #### [facility] [address] [place] [address], [facility] WBC (Bld) [#/Vol] 13.05 10*3/uL High 4.00-10.60 [facility] Comment on above: Performed By: #### 8 5499 #### [facility] [address] [place] [address], [place] LIVER BATTERYon 04-12-2021 Albumin [Mass/Vol] 3.8 g/dL Normal 3.5-5.7 [facility] Comment on above: Order Comment: No: D o not add to previous draw Performed By: #### 9 9909, 84838, 04755, 99690 #### [facility] [address] [place] [address], [place] ALKALINE PHOSPH 80 IU/L Normal 34-104 [facility] Comment on above: Order Comment: No: D o not add to previous draw Performed By: #### 9 9909, 93740, 11081, 56226 #### [facility] [address] [place] [address], [place] ALT [Catalytic activity/Vol] 10 U/L Normal 7-52 [facility] Comment on above: Order Comment: No: D o not add to previous draw Performed By: #### 9 9909, 64998, 29256, 98501 #### [facility] [address] [place] [address], [place] AST [Catalytic activity/Vol] 15 U/L Normal 13-39 [facility] Comment on above: Order Comment: No: D o not add to previous draw Performed By: #### 9 9909, 47881, 04937, 98960 #### [facility] [address] [place] [address], [place] Bilirubin [Mass/Vol] 1.0 mg/dL Normal 0.3-1.0 [facility] Comment on above: Order Comment: No: D o not add to previous draw Performed By: #### 9 9909, 33380, 22484, 02079 #### [facility] [address] [place] [address], [place] Bilirubin.direct [Mass/Vol] 0.5 mg/dL High 0.0-0.2 [facility] Comment on above: Order Comment: No: D o not add to previous draw Performed By: #### 9 9909, 41317, 18606, 26340 #### [facility] [address] [place] [address], [place] Protein [Mass/Vol] 7.2 g/dL Normal 6.0-8.3 [facility] Comment on above: Order Comment: No: D o not add to previous draw Performed By: #### 9 9909, 79057, 70990, 90979 #### [facility] [address] [place] [address], [place] MAGNESIUM BLOODon 04-12-2021 Magnesium [Mass/Vol] 2.5 mg/dL Normal 1.9-2.7 [facility] Comment on above: Order Comment: No: D o not add to previous draw Performed By: #### 9 9909, 56742, 83131, 30131 #### [facility] [address] [place] [address], [place] PHOSPHORUS BLOODon Phosphate [Mass/Vol] 3.7 mg/dL Normal 2.5-5.0 [facility] Comment on above: Order Comment: No: D o not add to previous draw Performed By: #### 9 9909, 29573, 72820, 93316 #### [facility] [address] [place] [address], [place] POC GLUCOSE LABon 04-12-2021 Glucose [Mass/Vol] 190 mg/dL High 70-100 [facility] Comment on above: Performed By: #### 8 5499 #### [facility] [address] [place] [address], [place] Glucose [Mass/Vol] 117 mg/dL High 70-100 [facility] Comment on above: Performed By: #### 8 [id number] #### [facility] [address] [place] [address], [place] PORTABLE CHEST 1 VIEWon 05-2 5-2021 PORTABLE CHEST 1 VIEW [facility] Department of Radiology [address] [place] [address] Patient Name: ADWOA PORTER : 1955 Sex: M Age: Race: White Pt. Location: [address] [place] [address] Patient Status: I Ordered Date: 04/12/2021 4:55:00 [...] edema. Electronically signed: Michaelle Villalba. Transcribed by: [email or web address], User Resident: Electronically Signed by: MICHAELLE VILLALBA @ 04/12/2021 05:27 PM Normal [facility] Comment on above: Order Comment: evalu ate for Pulmonary Edema PROTHROMBIN TIMEon INR Coag (PPP) [Relative time] 2.58 {INR} High 0.91-1.16 [facility] Comment on above: Order Comment: No: [...] 1995;108:231S-246S. Performed By: #### 3 5200 #### [facility] [address] [place] [address], [facility] PT Coag (PPP) [Time] 27.9 s High 12.3-14.8 [facility] Comment on above: Order Comment: No: D o not add to previous draw Result Comment: ALL RESULTS MUST BE INTERPRETED WITH RESPECT TO BLOOD DRAWING ARTIFACT OR DILUTION ERROR OF ANTICOAGULANT AT THE TIME OF SAMPLING. Performed By: #### 3 5200 #### [facility] [address] [place] [address], [facility] TROPONIN-Ion 04-12-2021 Troponin I.cardiac [Mass/Vol] 0.05 ng/mL High 0.00-0.04 [facility] Comment on above: Order Comment: No: D o not add to previous draw Result Comment: REFE RENCE RANGES: 0.00 - 0.04 ng/ml NORMAL 0.05 - 0.50 ng/ml INDETERMINATE > 0.50 ng/ml CONSISTENT WITH AN M.I. Performed By: #### 9 9909, 05365, 33551, 64827 #### [facility] [address] [place] [address], [place] Provider Letteron 11-16-2020 Provider Letter (Inserted Image. Radha ble to display) November 16, 2020 ADWOA PORTER [address] [place] [id number] ADWOA PORTER 1955 Dear Adwoa, You missed [...] appreciate your understanding. Sincerely, [facility] [address] [place] [address] [facility] Coding Summary.on 04-05-2020 Coding Summary. CODING DATE: 020 FINAL [facility] STATUS: Home (Routine DC) PAYOR: Medicare ADMIT [...] Benjamin CphT Date Saved: 04/05/2020 10:26 am [facility] Aerobic cultureon 12-04-2019 Aerobic Culture Staphylococcus aureus [facility] Aerobic Culture Klebsiella oxytoca F [facility] Transfusion reaction panel ( ABO, Rh)on 12-04-2019 Microscopic observation Gram stain Nom (Unsp spec) [facility] Vital Signs Date Time Vital Sign Value Performing Clinician Facility 02-05-2024 16:00-0400 Body temperature 97.2 [degF] DO Vinnie Stewart Work Phone: [facility] 02-05-2024 16:00-0400 Diastolic blood pressure 80 mm[Hg] DO Vinnie Stewart Work Phone: [facility] 02-05-2024 16:00-0400 Heart rate 85 /min DO Vinnie Stewart Work Phone: [facility] 02-05-2024 16:00-0400 Respiratory rate 18 /min DO Vinnie Stewart Work Phone: [facility] 02-05-2024 16:00-0400 SaO2% (BldA) [Mass fraction] 100 % DO Vinnie Stewart Work Phone: [facility] 02-05-2024 16:00-0400 Systolic blood pressure 138 mm[Hg] DO Vinnie Stewart Work Phone: [facility] 02-05-2024 08:45-0400 Inhaled oxygen flow rate 2 L/min DO Vinnie Stewart Work Phone: [facility] 02-05-2024 06:00-0400 Body weight 95.4 kg DO Vinnie Stewart Work Phone: [facility] 02-04-2024 16:40-0400 Body height 175.26 cm DO Vinnie Stewart Work Phone: [facility] 02-01-2024 11:52-0400 Inhaled oxygen concentration 10 % DO Vinnie Stewart Work Phone: [facility] 11-22-2023 15:15-0500 Body height 170.18 cm Vinnie Stewart Other [facility] 11-22-2023 15:15-0500 Body mass index (BMI) [Ratio] 29.6 kg/m2 Vinnie Stewart Other [facility] Other 11-22-2023 15:15-0500 Body temperature 97.9 [degF] Vinnie Stewart Other [facility] Other 11-22-2023 15:15-0500 Body weight 85.73 kg Vinnie Stewart Other [facility] Other 11-22-2023 15:15-0500 Body weight 85.72 kg DO Vinnie Stewart Work Phone: [facility] 11-22-2023 15:15-0500 Diastolic blood pressure 60 mm[Hg] Vinnie Stewart Other [facility] 11-22-2023 15:15-0500 Respiratory rate 18 /min Vinnie Stewart Other [facility] Other 11-22-2023 15:15-0500 SaO2% (BldA) [Mass fraction] 98 % Vinnie Stewart Other [facility] Other 11-22-2023 15:15-0500 Systolic blood pressure 122 mm[Hg] Vinnie Stewart Other [facility] 11-15-2023 13:40-0500 Body height 170.18 cm Simba Jac Other [facility] 11-15-2023 13:40-0500 Body mass index (BMI) [Ratio] 28.94 kg/m2 Simba Jac Other [facility] Other 11-15-2023 13:40-0500 Body temperature 96.4 [degF] Simba Jac Other [facility] Other 11-15-2023 13:40-0500 Body weight 83.83 kg Simba Jac Other [facility] Other 11-15-2023 13:40-0500 Body weight 83.82 kg DO Vinnie Stewart Work Phone: [facility] 11-15-2023 13:40-0500 Diastolic blood pressure 62 mm[Hg] Simba Jac Other [facility] 11-15-2023 13:40-0500 Respiratory rate 18 /min Simba Jca Other [facility] Other 11-15-2023 13:40-0500 SaO2% (BldA) [Mass fraction] 92 % Simba Jac Other [facility] Other 11-15-2023 13:40-0500 Systolic blood pressure 110 mm[Hg] Simba Jac Other [facility] 11-13-2023 13:30-0500 Body height 170.18 cm Brittnee Scally Other [facility] 11-13-2023 13:30-0500 Body mass index (BMI) [Ratio] 28.94 kg/m2 Brittnee Scally Other [facility] Other 11-13-2023 13:30-0500 Body weight 83.83 kg Brittnee Scally Other [facility] Other 11-13-2023 13:30-0500 Body weight 83.82 kg DO Vinnie Stewart Work Phone: [facility] 11-13-2023 13:30-0500 Diastolic blood pressure 63 mm[Hg] Brittnee Scally Other [facility] 11-13-2023 13:30-0500 Respiratory rate 18 /min Brittnee Scally Other [facility] Other 11-13-2023 13:30-0500 SaO2% (BldA) [Mass fraction] 95 % Brittnee Scally Other [facility] Other 11-13-2023 13:30-0500 Systolic blood pressure 107 mm[Hg] Brittnee Scally Other [facility] 10-08-2023 10:00-0500 Body height 170.18 cm Brittnee Scally Other [facility] 10-08-2023 10:00-0500 Body mass index (BMI) [Ratio] 30.57 kg/m2 Brittnee Scally Other [facility] Other 10-08-2023 10:00-0500 Body weight 88.54 kg Brittnee Scally Other [facility] 09-18-2023 15:00-0400 Body height 170.18 cm Brittnee Scally Other [facility] Other 09-18-2023 15:00-0400 Diastolic blood pressure 72 mm[Hg] Brittnee Scally Other [facility] Other 09-18-2023 15:00-0400 Respiratory rate 18 /min Brittnee Scally Other [facility] Other 09-18-2023 15:00-0400 SaO2% (BldA) [Mass fraction] 96 % Brittnee Scally Other [facility] Other 09-18-2023 15:00-0400 Systolic blood pressure 115 mm[Hg] Brittnee Scally Other [facility] Other 06-29-2023 10:30-0400 Body height 170.18 cm Vinnie Stewart Other [facility] Other 06-29-2023 10:30-0400 Body mass index (BMI) [Ratio] 31.99 kg/m2 Vinnie Stewart Other [facility] Other 06-29-2023 10:30-0400 Body weight 92.67 kg Vinnie Stewart Other [facility] Other 06-29-2023 10:30-0400 Diastolic blood pressure 72 mm[Hg] Vinnie Stewart Other [facility] Other 06-29-2023 10:30-0400 Respiratory rate 18 /min Vinnie Stewart Other [facility] Other 06-29-2023 10:30-0400 SaO2% (BldA) [Mass fraction] 95 % Vinnie Stewart Other [facility] Other 06-29-2023 10:30-0400 Systolic blood pressure 124 mm[Hg] Vinnie Stewart Other [facility] Other 06-29-2023 08:15-0400 Body height 170.18 cm Brittnee Remaly Other [facility] Other 06-29-2023 08:15-0400 Diastolic blood pressure 62 mm[Hg] Brittnee Scally Other [facility] Other 06-29-2023 08:15-0400 Respiratory rate 18 /min Brittnee Spain Other [facility] Other 06-29-2023 08:15-0400 SaO2% (BldA) [Mass fraction] 94 % Brittnee Spain Other [facility] Other 06-29-2023 08:15-0400 Systolic blood pressure 104 mm[Hg] Brittnee Spain Other [facility] Other 06-18-2023 11:30-0400 Body height 170.18 cm Vinnie Stewart Other [facility] Other 06-18-2023 11:30-0400 Body mass index (BMI) [Ratio] 32.89 kg/m2 Vinnie Stewart Other [facility] Other 06-18-2023 11:30-0400 Body temperature 97.5 [degF] Vinnie Stewart Other [facility] Other 06-18-2023 11:30-0400 Body weight 95.26 kg Vinnie Stewart Other [facility] Other 06-18-2023 11:30-0400 Diastolic blood pressure 72 mm[Hg] Vinnie Stewart Other [facility] Other 06-18-2023 11:30-0400 Respiratory rate 18 /min Vinnie Stewart Other [facility] Other 06-18-2023 11:30-0400 SaO2% (BldA) [Mass fraction] 94 % Vinnie Stewart Other [facility] Other 06-18-2023 11:30-0400 Systolic blood pressure 126 mm[Hg] Vinnie tSewart Other [facility] Other 04-19-2023 11:20-0400 Body height 170.18 cm Simba Jac Other [facility] Other 04-19-2023 11:20-0400 Body mass index (BMI) [Ratio] 32.76 kg/m2 Simba Jac Other [facility] Other 04-19-2023 11:20-0400 Body temperature 97.6 [degF] Simba Jac Other [facility] Other 04-19-2023 11:20-0400 Body weight 94.89 kg Simba Jac Other [facility] Other 04-19-2023 11:20-0400 Diastolic blood pressure 60 mm[Hg] Simba Jac Other [facility] Other 04-19-2023 11:20-0400 Respiratory rate 18 /min Simba Jac Other [facility] Other 04-19-2023 11:20-0400 SaO2% (BldA) [Mass fraction] 98 % Simba Jac Other [facility] Other 04-19-2023 11:20-0400 Systolic blood pressure 120 mm[Hg] Simba Jac Other [facility] Other 03-21-2023 14:00-0400 Body height 170.18 cm Vinnie Stewart Other [facility] Other 03-21-2023 14:00-0400 Body mass index (BMI) [Ratio] 32.42 kg/m2 Vinnie Stewart Other [facility] Other 03-21-2023 14:00-0400 Body weight 93.9 kg Vinnie Stewart Other [facility] Other 03-21-2023 14:00-0400 Diastolic blood pressure 86 mm[Hg] Vinnie Stewart Other [facility] Other 03-21-2023 14:00-0400 Respiratory rate 18 /min Vinnie Stewart Other [facility] Other 03-21-2023 14:00-0400 SaO2% (BldA) [Mass fraction] 94 % Vinnie Stewart Other [facility] Other 03-21-2023 14:00-0400 Systolic blood pressure 132 mm[Hg] Vinnie Stewart Other [facility] Other 02-21-2023 15:45-0400 Body height 170.18 cm Vinnie Stewart Other [facility] Other 02-21-2023 15:45-0400 Body mass index (BMI) [Ratio] 32.57 kg/m2 Vinnie Stewart Other [facility] Other 02-21-2023 15:45-0400 Body weight 94.35 kg Vinnie Stewart Other [facility] Other 02-21-2023 15:45-0400 Diastolic blood pressure 76 mm[Hg] Vinnie Stewart Other [facility] Other 02-21-2023 15:45-0400 Respiratory rate 18 /min Vinnie Stewart Other [facility] Other 02-21-2023 15:45-0400 SaO2% (BldA) [Mass fraction] 97 % Vinnie Stewart Other [facility] Other 02-21-2023 15:45-0400 Systolic blood pressure 134 mm[Hg] Vinnie Stewart Other [facility] Other 02-14-2023 15:48-0400 Body temperature 97.5 [degF] DO Vinnie Stewart Work Phone: [facility] 02-14-2023 15:48-0400 Diastolic blood pressure 80 mm[Hg] DO Vinnie Stewart Work Phone: [facility] 02-14-2023 15:48-0400 Heart rate 86 /min DO Vinnie Stewart Work Phone: [facility] 02-14-2023 15:48-0400 Respiratory rate 16 /min DO Vinnie Stewart Work Phone: [facility] 02-14-2023 15:48-0400 SaO2% (BldA) [Mass fraction] 98 % DO Vinnie Stewart Work Phone: [facility] 02-14-2023 15:48-0400 Systolic blood pressure 137 mm[Hg] DO Vinnie Stewart Work Phone: [facility] 02-14-2023 14:01-0400 Body height 175.26 cm DO Vinnie Stewart Work Phone: [facility] 02-14-2023 06:00-0400 Body weight 97 kg DO Vinnie Stewart Work Phone: [facility] 02-13-2023 20:36-0400 Diastolic blood pressure 79 mm[Hg] DO Vinnie Stewart Work Phone: [facility] 02-13-2023 20:36-0400 Heart rate 86 /min DO Vinnie Stewart Work Phone: [facility] 02-13-2023 20:36-0400 Respiratory rate 16 /min DO Vinnie Stewart Work Phone: [facility] 02-13-2023 20:36-0400 SaO2% (BldA) [Mass fraction] 94 % DO Vinnie Stewart Work Phone: [facility] 02-13-2023 20:36-0400 Systolic blood pressure 146 mm[Hg] DO Vinnie Stewart Work Phone: [facility] 02-13-2023 15:38-0400 Body height 175.26 cm DO Vinnie Stewart Work Phone: [facility] 02-13-2023 15:38-0400 Body temperature 97.8 [degF] DO Vinnie Stewart Work Phone: [facility] 02-13-2023 15:38-0400 Body weight 96.16 kg DO Vinnie Stewart Work Phone: [facility] 02-09-2023 12:45-0400 Body height 170.18 cm Vinnie Stewart Other [facility] Other 02-09-2023 12:45-0400 Body mass index (BMI) [Ratio] 33.2 kg/m2 Vinnie Stewart Other [facility] Other 02-09-2023 12:45-0400 Body weight 96.16 kg Vinnie Stewart Other [facility] Other 02-09-2023 12:45-0400 Diastolic blood pressure 82 mm[Hg] Vinnie Stewart Other [facility] Other 02-09-2023 12:45-0400 Respiratory rate 18 /min Vinnie Stewart Other [facility] Other 02-09-2023 12:45-0400 SaO2% (BldA) [Mass fraction] 94 % Vinnie Stewart Other [facility] Other 02-09-2023 12:45-0400 Systolic blood pressure 128 mm[Hg] Vinnie Stewart Other [facility] Other 01-17-2023 15:30-0500 Body height 170.18 cm Vinnie Stewart Other [facility] Other 01-17-2023 15:30-0500 Body mass index (BMI) [Ratio] 36.02 kg/m2 Vinnie Stewart Other [facility] Other 01-17-2023 15:30-0500 Body weight 104.33 kg Vinnie Stewart Other [facility] Other 01-17-2023 15:30-0500 Diastolic blood pressure 82 mm[Hg] Vinnie Stewart Other [facility] Other 01-17-2023 15:30-0500 Respiratory rate 18 /min Vinnie Stewart Other [facility] Other 01-17-2023 15:30-0500 SaO2% (BldA) [Mass fraction] 94 % Vinnie Stewart Other [facility] Other 01-17-2023 15:30-0500 Systolic blood pressure 134 mm[Hg] Vinnie Stewart Other [facility] [employer] [facility] Other 12-04-2022 13:06-0500 Body height 175.26 cm DO Vinnie Stewart Work Phone: [facility] 12-04-2022 13:06-0500 Body weight 100.8 kg DO Vinnie Stewart Work Phone: [facility] 12-04-2022 13:06-0500 Diastolic blood pressure 84 mm[Hg] DO Vinnie Stewart Work Phone: [facility] 12-04-2022 13:06-0500 Heart rate 86 /min DO Vinnie Stewart Work Phone: [facility] 12-04-2022 13:06-0500 Respiratory rate 20 /min DO Vinnie Stewart Work Phone: [facility] 12-04-2022 13:06-0500 SaO2% (BldA) [Mass fraction] 96 % DO Vinnie Stewart Work Phone: [facility] 12-04-2022 13:06-0500 Systolic blood pressure 129 mm[Hg] DO Vinnie Stewart Work Phone: [facility] 11-07-2022 14:45-0500 Body height 170.18 cm Brittnee Scally Other [facility] Other 11-07-2022 14:45-0500 Body mass index (BMI) [Ratio] 39.7 kg/m2 Brittnee Scally Other [facility] Other 11-07-2022 14:45-0500 Body weight 114.99 kg Brittnee Scally Other [facility] Other 11-07-2022 14:45-0500 Diastolic blood pressure 68 mm[Hg] Brittnee Scally Other [facility] Other 11-07-2022 14:45-0500 Respiratory rate 20 /min Brittnee Hodgsonly Other [facility] Other 11-07-2022 14:45-0500 SaO2% (BldA) [Mass fraction] Brittnee Hodgsonly Other [facility] Other 11-07-2022 14:45-0500 Systolic blood pressure 108 mm[Hg] rBittnee Hodgsonly Other [facility] Other 09-28-2022 13:00-0500 Diastolic blood pressure 67 mm[Hg] Gisselle Dickey Other [facility] Other 09-28-2022 13:00-0500 Respiratory rate 18 /min Gisselle Dickey Other [facility] Other 09-28-2022 13:00-0500 SaO2% (BldA) [Mass fraction] 92 % Gisselle Dickey Other [facility] Other 09-28-2022 13:00-0500 Systolic blood pressure 123 mm[Hg] Gisselle Dickey Other [facility] Other 09-28-2022 12:40-0500 Body height 170.18 cm Simba Jac Other [facility] Other 09-28-2022 12:40-0500 Body mass index (BMI) [Ratio] 37.93 kg/m2 Simba Jac Other [facility] Other 09-28-2022 12:40-0500 Body temperature 96.2 [degF] Simba Jac Other [facility] Other 09-28-2022 12:40-0500 Body weight 109.86 kg Simba Jac Other [facility] Other 09-28-2022 12:40-0500 Diastolic blood pressure 81 mm[Hg] Simba Jac Other [facility] Other 09-28-2022 12:40-0500 Respiratory rate 20 /min Simba Jac Other [facility] Other 09-28-2022 12:40-0500 SaO2% (BldA) [Mass fraction] 90 % Simba Jac Other [facility] Other 09-28-2022 12:40-0500 Systolic blood pressure 139 mm[Hg] Simba Jac Other [facility] Other 09-13-2022 14:00-0400 Body height 170.18 cm Vinnie Stewart Other [facility] Other 09-13-2022 14:00-0400 Body mass index (BMI) [Ratio] 35.71 kg/m2 Vinnie Stewart Other [facility] Other 09-13-2022 14:00-0400 Body weight 103.42 kg Vinnie Stewart Other [facility] Other 09-13-2022 14:00-0400 Diastolic blood pressure 81 mm[Hg] Vinnie Stewart Other [facility] Other 09-13-2022 14:00-0400 Respiratory rate 16 /min Vinnie Stewart Other [facility] Other 09-13-2022 14:00-0400 SaO2% (BldA) [Mass fraction] 97 % Vinnie Stewart Other [facility] Other 09-13-2022 14:00-0400 Systolic blood pressure 119 mm[Hg] Vinnie Osvaldo Other [facility] Other 07-31-2022 15:30-0400 Body height 170.18 cm Brittnee Scally Other [facility] Other 07-31-2022 15:30-0400 Body mass index (BMI) [Ratio] 35.55 kg/m2 Brittnee Scally Other [facility] Other 07-31-2022 15:30-0400 Body weight 102.97 kg Brittnee Scally Other [facility] Other 07-31-2022 15:30-0400 Diastolic blood pressure 78 mm[Hg] Brittnee Scally Other [facility] Other 07-31-2022 15:30-0400 Respiratory rate 20 /min Brittnee Scally Other [facility] Other 07-31-2022 15:30-0400 SaO2% (BldA) [Mass fraction] 95 % Brittnee Scally Other [facility] Other 07-31-2022 15:30-0400 Systolic blood pressure 125 mm[Hg] Brittnee Scally Other [facility] Other 06-20-2022 12:15-0400 Body height 170.18 cm Vinnie Stewart Other [facility] Other 06-20-2022 12:15-0400 Body mass index (BMI) [Ratio] 35.55 kg/m2 Vinnie Stewart Other [facility] Other 06-20-2022 12:15-0400 Body weight 102.97 kg Vinnie Stewart Other [facility] Other 06-20-2022 12:15-0400 Diastolic blood pressure 47 mm[Hg] Vinnie Stewart Other [facility] Other 06-20-2022 12:15-0400 Respiratory rate 18 /min Vinnie Stewart Other [facility] Other 06-20-2022 12:15-0400 SaO2% (BldA) [Mass fraction] 94 % Vinnie Stewart Other [facility] Other 06-20-2022 12:15-0400 Systolic blood pressure 106 mm[Hg] Vinnie Stewart Other [facility] Other 06-06-2022 11:36-0400 Body temperature 98 [degF] DO Vinnie Stewart Work Phone: [facility] 03-02-2022 15:30-0400 Body height 170.18 cm Vinnie Stewart Other [facility] Other 03-02-2022 15:30-0400 Body mass index (BMI) [Ratio] 35.39 kg/m2 Vinnie Stewart Other [facility] Other 03-02-2022 15:30-0400 Body temperature 97.5 [degF] Vinnie Lucasley Other [facility] Other 03-02-2022 15:30-0400 Body weight 102.51 kg Vinnie Lucasley Other [facility] Other 03-02-2022 15:30-0400 Diastolic blood pressure 74 mm[Hg] Vinnie Stewart Other [facility] Other 03-02-2022 15:30-0400 Respiratory rate 20 /min Vinnie Lucasley Other [facility] Other 03-02-2022 15:30-0400 SaO2% (BldA) [Mass fraction] 94 % Vinnie Lucasley Other [facility] Other 03-02-2022 15:30-0400 Systolic blood pressure 114 mm[Hg] Vinnie Stewart Other [facility] Other 02-19-2022 12:05-0400 Body height 170.18 cm Ruthie Megan Other [facility] Other 02-19-2022 12:05-0400 Body mass index (BMI) [Ratio] 35.71 kg/m2 Ruthie Guzman Other [facility] Other 02-19-2022 12:05-0400 Body temperature 97.4 [degF] Ruthie Guzman Other [facility] Other 02-19-2022 12:05-0400 Body weight 103.42 kg Ruthie Guzman Other [facility] Other 02-19-2022 12:05-0400 Diastolic blood pressure 62 mm[Hg] Ruthie Guzman Other [facility] Other 02-19-2022 12:05-0400 Respiratory rate 20 /min Ruthie Guzman Other [facility] Other 02-19-2022 12:05-0400 SaO2% (BldA) [Mass fraction] 94 % Ruthie Guzman Other [facility] Other 02-19-2022 12:05-0400 Systolic blood pressure 116 mm[Hg] Ruthie Guzman Other [facility] Other 02-07-2022 16:00-0400 Body height 170.18 cm Balbir Ba Other [facility] Other 02-07-2022 16:00-0400 Body mass index (BMI) [Ratio] 36.02 kg/m2 Balbir Ba Other [facility] Other 02-07-2022 16:00-0400 Body temperature 97.3 [degF] Balbir Ba Other [facility] Other 02-07-2022 16:00-0400 Body weight 104.33 kg Balbir Ba Other [facility] Other 02-07-2022 16:00-0400 Diastolic blood pressure 74 mm[Hg] Balbir Ba Other [facility] Other 02-07-2022 16:00-0400 SaO2% (BldA) [Mass fraction] 98 % Balbir Ba Other [facility] Other 02-07-2022 16:00-0400 Systolic blood pressure 136 mm[Hg] Balbir Ba Other [facility] Other 01-11-2022 14:00-0500 Body height 170.18 cm Brittnee Scally Other [facility] Other 01-11-2022 14:00-0500 Body mass index (BMI) [Ratio] 35.5 kg/m2 Brittnee Scally Other [facility] Other 01-11-2022 14:00-0500 Body weight 102.83 kg Brittnee Scally Other [facility] Other 01-11-2022 14:00-0500 Diastolic blood pressure 62 mm[Hg] Brittnee Scally Other [facility] Other 01-11-2022 14:00-0500 Respiratory rate 20 /min Brittnee Scally Other [facility] Other 01-11-2022 14:00-0500 SaO2% (BldA) [Mass fraction] 98 % Brittnee Scally Other [facility] Other 01-11-2022 14:00-0500 Systolic blood pressure 105 mm[Hg] Brittnee Scally Other [facility] Other 11-16-2021 14:00-0500 Body height 170.18 cm Brittnee Scally Other [facility] Other 11-16-2021 14:00-0500 Body mass index (BMI) [Ratio] 35.72 kg/m2 Brittnee Scally Other [facility] Other 11-16-2021 14:00-0500 Body weight 103.47 kg Brittnee Scally Other [facility] Other 11-16-2021 14:00-0500 Diastolic blood pressure 70 mm[Hg] Brittnee Scally Other [facility] Other 11-16-2021 14:00-0500 Respiratory rate 20 /min Brittnee Scally Other [facility] Other 11-16-2021 14:00-0500 SaO2% (BldA) [Mass fraction] 93 % Brittnee Scally Other [facility] Other 11-16-2021 14:00-0500 Systolic blood pressure 123 mm[Hg] Brittnee Scally Other [facility] Other 10-05-2021 14:45-0500 Body height 170.18 cm Brittnee Scally Other [facility] Other 10-05-2021 14:45-0500 Body mass index (BMI) [Ratio] 35.42 kg/m2 Brittnee Scally Other [facility] Other 10-05-2021 14:45-0500 Body weight 102.6 kg Brittnee Scally Other [facility] Other 10-05-2021 14:45-0500 Diastolic blood pressure 74 mm[Hg] Brittene Scally Other [facility] Other 10-05-2021 14:45-0500 Respiratory rate 20 /min Brittnee Scally Other [facility] Other 10-05-2021 14:45-0500 SaO2% (BldA) [Mass fraction] 95 % Brittnee Spain Other [facility] Other 10-05-2021 14:45-0500 Systolic blood pressure 123 mm[Hg] Brittnee Spain Other [facility] Other 09-26-2021 12:00-0500 Body height 170.18 cm Vinnie Stewart Other [facility] Other 09-26-2021 12:00-0500 Body mass index (BMI) [Ratio] 35.39 kg/m2 Vinnie Stewart Other [facility] Other 09-26-2021 12:00-0500 Body temperature 98.1 [degF] Vinnie Stewart Other [facility] Other 09-26-2021 12:00-0500 Body weight 102.51 kg Vinnie Stewart Other [facility] Other 09-26-2021 12:00-0500 Diastolic blood pressure 72 mm[Hg] Vinnie Stewart Other [facility] Other 09-26-2021 12:00-0500 Respiratory rate 20 /min Vinnie Stewart Other [facility] Other 09-26-2021 12:00-0500 SaO2% (BldA) [Mass fraction] 95 % Vinnie Stewart Other [facility] Other 09-26-2021 12:00-0500 Systolic blood pressure 118 mm[Hg] Vinnie Stewart Other [facility] [employer] Other 12-18-2019 10:11-0500 BMI (Body Mass Index) 35.2 kg/m2 [facility] 12-18-2019 10:11-0500 Body weight 108.4 kg [facility] 12-18-2019 [id number] Height 175.26 cm [facility] 12-18-2019 10:01-0500 Body Temperature 97.8 [degF] [facility] 12-18-2019 10:01-0500 BP Diastolic 80 mm[Hg] [facility] 12-18-2019 10:01-0500 BP Systolic 126 mm[Hg] [facility] 12-18-2019 10:01-0500 Pulse (Heart Rate) 108 /min Vinnie [facility] 12-18-2019 10:01-0500 Respiratory Rate 16 /min [facility] Encounters Encounter Date Encounter Type Care Provider Facility Start: 02-05-2024 Non-patient / Non-visit DO Vinnie Stewart Work Phone: [facility] Work Phone: Start: 01-30-2024 Non-patient / Non-visit DO Vinnie Stewart Work Phone: [facility] Work Phone: Start: 01-30-2024 Non-patient / Non-visit DO Vinnie Stewart Work Phone: [facility] Work Phone: Start: 01-29-2024 Non-patient / Non-visit DO Vinnie Stewart Work Phone: [facility] Work Phone: Start: 01-29-2024 Non-patient / Non-visit DO Vinnie Stewart Work Phone: [facility] Work Phone: Start: 01-28-2024 End: 02-05-2024 Evaluation and management of inpatient Farhan Hudson Facility:[facility] Start: 01-28-2024 Non-patient / Non-visit DO Vinnie Stewart Work Phone: [facility] Work Phone: Start: 01-28-2024 End: 02-05-2024 Evaluation and management of inpatient DO Vinnie Stewart Work Phone: [facility] [place] [facility] Work Phone: Start: 01-25-2024 End: 01-25-2024 ambulatory BRYCE SHIRLEY [facility] Start: 01-17-2024 End: 01-17-2024 ambulatory Jorge Saucedasylwia Facility:[facility] Start: 01-17-2024 End: 01-17-2024 Departed Referred DO Vinnie Stewart Work Phone: [facility] Start: 12-27-2023 End: 12-27-2023 ambulatory Vinnie Stewart Other [facility] Other Start: 12-27-2023 Telephone encounter Vinnie Palomino [facility] Start: 12-20-2023 End: 12-20-2023 ambulatory Vinnie Stewart Other [facility] Other Start: 12-20-2023 Telephone encounter Vinnie Palomino [facility] Start: 12-18-2023 End: 12-19-2023 ambulatory VINNIE STEWART [facility] Start: 12-17-2023 End: 12-17-2023 ambulatory Vinnie Stewart Other [facility] Other Start: 12-17-2023 Telephone encounter [facility] Start: 12-11-2023 Non-patient / Non-visit DO Vinnie Stewart Work Phone: [facility] [employer] Work Phone: Start: 12-10-2023 End: 12-11-2023 ambulatory Nicolette Manzano Facility:[facility] Start: 12-10-2023 End: 12-10-2023 Discharged Recurring DO Vinnie Stewart Work Phone: [facility] Work Phone: Start: 12-10-2023 End: 12-10-2023 ambulatory DO Vinnie Stewart Work Phone: [facility] [employer] Other Start: 12-10-2023 Nursing evaluation o f patient and report Brittnee Spain [facility] Start: 11-26-2023 End: 11-26-2023 ambulatory BRYCE SHIRLEY [facility] Start: 11-22-2023 End: 11-22-2023 ambulatory Vinnie Stewart Other [facility] Other Start: 11-22-2023 Office outpatient visit 15 minutes Vinnie [facility] Start: 11-22-2023 Telephone encounter Vinnie Palomino [facility] Start: 11-22-2023 End: 11-22-2023 Patient encounter procedure DO Vinnie Stewart Work Phone: [facility] Work Phone: Start: 11-21-2023 End: 11-21-2023 ambulatory Vinnie Stewart Other [facility] Other Start: 11-21-2023 Telephone encounter Vinnie Palomino [facility] Start: 11-15-2023 End: 11-15-2023 ambulatory Simba Kaufman Other [facility] Other Start: 11-15-2023 Office outpatient visit 25 minutes Simba Kaufman [facility] Start: 11-15-2023 End: 11-15-2023 Patient encounter procedure DO Vinnie Stewart Work Phone: [facility] [facility] Work Phone: Start: 11-13-2023 (DM) Diabetes Brittnee Remalouisa [facility] Start: 11-13-2023 End: 11-13-2023 ambulatory Brittnee Spain Other [facility] Other Start: 11-13-2023 Telephone encounter Brittnee Remalouisa Matt [facility] Start: 11-13-2023 End: 11-13-2023 Patient encounter procedure DO Vinnie Stewart Work Phone: [facility] Work Phone: Start: 11-06-2023 End: 11-06-2023 ambulatory Vinnie Stewart Other [facility] Other Start: 11-06-2023 Telephone encounter Vinnie Palomino [facility] Start: 11-01-2023 End: 11-01-2023 ambulatory Brittnee Spain Other [facility] Other Start: 11-01-2023 Telephone encounter Brittnee Remalouisa [facility] Start: 10-25-2023 End: 10-25-2023 ambulatory Vinnie Stewart Other [facility] Other Start: 10-25-2023 Telephone encounter Vinnie Palomino [facility] Start: 10-22-2023 End: 10-22-2023 ambulatory Brittnee pSain Other [facility] Other Start: 10-22-2023 Telephone encounter Brittnee Scallouisa [facility] Start: 10-19-2023 End: 10-19-2023 ambulatory Vinnie Stewart Other [facility] Other Start: 10-19-2023 Telephone encounter Vinnie Palomino [facility] Start: 10-08-2023 End: 10-08-2023 ambulatory Brittnee Spain Other [facility] Other Start: 10-08-2023 Nursing evaluation o f patient and report Brittnee Spain [facility] Start: 10-08-2023 End: 10-08-2023 Patient encounter procedure DO Vinnie Stewart Work Phone: [facility] Work Phone: Start: 10-04-2023 (Acute) Acute Visit Brittnee harrington [facility] Start: 10-04-2023 End: 10-04-2023 ambulatory Brittnee Spain Other [facility] Other Start: 10-03-2023 End: 10-03-2023 ambulatory Brittnee Spain Other [facility] Other Start: 10-03-2023 Telephone encounter Brittnee merritt [facility] Start: 09-21-2023 End: 09-21-2023 ambulatory [facility] Start: 09-20-2023 End: 09-20-2023 ambulatory Vinnie Stewart Other [facility] Other Start: 09-20-2023 Telephone encounter Vinnie Palomino [facility] Start: 09-18-2023 (DM) Diabetes Brittnee Segovia [facility] Start: 09-18-2023 End: 09-18-2023 ambulatory Vinnie Stewart Other [facility] Other Start: 09-18-2023 Telephone encounter Vinnie Palomino [facility] Start: 09-17-2023 End: 09-17-2023 ambulatory Vinnie Stewart Other [facility] Other Start: 09-17-2023 Telephone encounter Vinnie Palomino [facility] Start: 08-31-2023 End: 08-31-2023 ambulatory Brittnee Remalouisa Other [facility] Other Start: 08-31-2023 Telephone encounter Brittnee Remalouisa [facility] Start: 08-30-2023 End: 08-30-2023 ambulatory UNKNOWN PROVIDER [facility] Other Start: 08-30-2023 Telephone encounter Vinnie Palomino [facility] Start: 08-23-2023 End: 08-23-2023 ambulatory MASSIMO SWAN O[facility] Other Start: 08-23-2023 Telephone encounter Vinnie [facility]ino [facility] Start: 08-20-2023 End: 08-20-2023 ambulatory Vinnie Stewart Other [facility] Other Start: 08-20-2023 Telephone encounter Vinnie Palomino [facility] Start: 08-15-2023 Telephone encounter Vinnie [facility]omino [facility] Start: 08-15-2023 End: 08-15-2023 ambulatory BRYCE WATSON [facility] Other Start: 08-03-2023 End: 08-03-2023 ambulatory Vinnie Stewart Other [facility] Other Start: 08-03-2023 Telephone encounter Vinnie [facility]omino [facility] Start: 07-30-2023 End: 07-30-2023 ambulatory Vinnie Stewart Other [facility] Other Start: 07-30-2023 Telephone encounter Vinnie ROSALES [facility] Start: 07-27-2023 End: 07-27-2023 ambulatory Vinnie Stewart Other [facility] Other Start: 07-27-2023 Telephone encounter Vinnie ROSALES [facility] Start: 07-24-2023 End: 07-24-2023 ambulatory [facility] Start: 07-20-2023 End: 07-20-2023 ambulatory Vinnie Stewart Other [facility] Other Start: 07-20-2023 Telephone encounter Vinnie ROSALES [facility] Start: 07-19-2023 End: 07-19-2023 ambulatory Vinnie Stewart Other [facility] Other Start: 07-19-2023 Telephone encounter Vinnie ROSALES [facility] Start: 07-16-2023 End: 07-16-2023 ambulatory Vinnie Stewart Other [facility] Other Start: 07-16-2023 Telephone encounter Vinnie ROSALES [facility] Start: 07-12-2023 End: 07-12-2023 ambulatory Vinnie Stewart Other [facility] Other Start: 07-12-2023 Telephone encounter Vinnie ROSALES [facility] Start: 06-29-2023 (DM) Diabetes Brittneejorge l yee [facility] Start: 06-29-2023 End: 06-29-2023 ambulatory Vinnie Stewart Other [facility] Other Start: 06-29-2023 Office outpatient visit 15 minutes Vinnie FRANCISCO [facility] Start: 06-18-2023 End: 06-18-2023 ambulatory Vinnie Stewart Other [facility] Other Start: 06-18-2023 Office outpatient visit 15 minutes Vinnie FRANCISCO [facility] Start: 06-15-2023 End: 06-15-2023 ambulatory Vinnie Stewart Other [facility] Other Start: 06-15-2023 Telephone encounter Vinnie Palomino [facility] Start: 06-05-2023 End: 06-06-2023 ambulatory [facility] Start: 05-31-2023 End: 05-31-2023 ambulatory Vinnie Stewart Other [facility] Other Start: 05-31-2023 Telephone encounter Vinnie Plaomino [facility] Start: 05-18-2023 End: 05-18-2023 ambulatory Vinnie Stewart Other [facility] Other Start: 05-18-2023 Telephone encounter Vinnie Palomino [facility] Start: 05-08-2023 End: 05-08-2023 ambulatory Tondra Mapus Other [facility] Other Start: 05-08-2023 Telephone encounter Tondra Mapus [facility] Start: 05-02-2023 End: 05-02-2023 ambulatory Brittnee Spain Other [facility] Other Start: 05-02-2023 Nursing evaluation o f patient and report Brittnee Spain [facility] Start: 04-20-2023 End: 04-20-2023 ambulatory Vinnie Stewart Other [facility] Other Start: 04-20-2023 Telephone encounter Vinnie Palomino [facility] Start: 04-19-2023 End: 04-19-2023 ambulatory Simba Kaufman Other [facility] Other Start: 04-19-2023 Office outpatient visit 15 minutes Gisselle Dickey [facility] Start: 04-19-2023 Office outpatient visit 25 minutes Simba Jac [facility] Start: 04-18-2023 End: 04-18-2023 ambulatory Vinnie Stewart Other [facility] Other Start: 04-18-2023 Telephone encounter Vinnie Palomino [facility] Start: 04-17-2023 Telephone encounter Vinnie Palomino [facility] Start: 04-17-2023 End: 04-17-2023 ambulatory JORGE Goodman [facility] Facility: Start: 04-13-2023 End: 04-13-2023 ambulatory Simba Jac Other [facility] Other Start: 04-13-2023 Telephone encounter Simba Jac [facility] Start: 04-11-2023 End: 04-12-2023 ambulatory SIMBA JAC Facility: Start: 04-02-2023 End: 04-03-2023 ambulatory [facility] Other Start: 04-02-2023 Telephone encounter Vinnie Palomino [facility] Start: 03-27-2023 End: 03-28-[address] DEEPAK FOURNIER . [facility] Other Start: 03-27-2023 Telephone encounter Brittnee harrington [facility] Start: 03-21-2023 End: 03-21-2023 ambulatory DAHIANA BELCHER [facility] Other Start: 03-21-2023 Office outpatient visit 15 minutes Vinnie FRANCISCO [facility] Start: 03-19-2023 Telephone encounter Vinnie Palomino [facility] Start: 03-19-2023 End: 04-18-2023 ambulatory SHAIKH Jorge L YU [facility] Other Start: 02-27-2023 End: 02-27-2023 ambulatory Vinnie Stewart Other [facility] Other Start: 02-27-2023 Telephone encounter Vinnie Hodges Start: 02-21-2023 End: 02-21-2023 ambulatory Vinnie Stewart Facility:[facility] Start: 02-21-2023 Office outpatient visit 15 minutes Vinnie Hodges Start: 02-21-2023 End: 02-21-2023 ambulatory DO Vinnie Noreen Osvaldo Work Phone: [facility] Work Phone: Start: 02-21-2023 End: 02-21-2023 Patient encounter procedure DO Vinnie Stewart Work Phone: [facility] [place] Work Phone: Start: 02-20-2023 End: 02-20-2023 ambulatory Vinnie Stewart Other [facility] Other Start: 02-20-2023 Telephone encounter Vinnie Hodges Start: 02-19-2023 End: 03-16-2023 ambulatory SHAIKH Jorge L YU Facility: Start: 02-13-2023 End: 02-14-2023 Evaluation and management of inpatient DO Vinnie Stewart Work Phone: [facility] [place] [facility] Work Phone: Start: 02-13-2023 Registered Recurring DO Vinnie Stewart Work Phone: [facility] Work Phone: Start: 02-13-2023 End: 02-13-2023 ambulatory Vinnie Stewart Other [facility] Other Start: 02-13-2023 Telephone encounter Vinnie Hodges Start: 02-09-2023 End: 02-09-2023 ambulatory Vinnie Stewart Other [facility] Other Start: 02-09-2023 Office outpatient visit 15 minutes Vinnie Stewart [facility] Start: 02-05-2023 End: 02-05-2023 ambulatory Vinnie Stewart Other [facility] Other Start: 02-05-2023 Telephone encounter Vinnie ROSALES [facility] Start: 01-30-2023 End: 01-30-2023 ambulatory Vinnie Stewart Other [facility] Other Start: 01-30-2023 Telephone encounter Vinnie Palomino [facility] Start: 01-29-2023 End: 01-30-2023 ambulatory [facility] Facility:H1 Start: 01-29-2023 End: 01-29-2023 ambulatory [facility] Start: 01-17-2023 Office outpatient visit 15 minutes Vinnie Stewart [facility] Start: 01-17-2023 End: 02-16-2023 ambulatory SHAIKH Jorge L VEGAANKUSH [facility] Other Start: 01-16-2023 End: 01-16-2023 ambulatory Vinnie Stewart Other [facility] Other Start: 01-16-2023 Telephone encounter Vinnie Palomino [facility] Start: 01-05-2023 End: 01-11-2023 Evaluation and management of inpatient NIK BUNN . Facility:H1 Start: 01-02-2023 End: 01-02-2023 ambulatory CANDELARIA Olson Facility:H1 Start: 01-02-2023 End: 01-03-2023 ambulatory KODI LISA Facility:H1 Start: 12-26-2022 End: 12-27-2022 ambulatory KODI LISA Facility:H1 Start: 12-22-2022 End: 12-22-2022 ambulatory Vinnie Stewart Other [facility] Other Start: 12-22-2022 Telephone encounter Vinnie Palomino [facility] Start: 12-20-2022 End: 01-17-2023 ambulatory SHAIKH Jorge L YU Facility: Start: 12-19-2022 End: 12-19-2022 ambulatory Vinnie Stewart Other [facility] Other Start: 12-19-2022 Telephone encounter Vinnie Palomino [facility] Start: 12-14-2022 End: 12-14-2022 ambulatory Vinnie Stewart Other [facility] Other Start: 12-14-2022 Telephone encounter Vinnie Palomino [facility] Start: 12-12-2022 End: 12-12-2022 ambulatory Brittnee Spain Other [facility] Other Start: 12-12-2022 Nursing evaluation o f patient and report Brittnee Spain [facility] Start: 12-11-2022 End: 12-11-2022 ambulatory Vinnie Stewart Other [facility] Other Start: 12-11-2022 Telephone encounter Vinnie Palomino [facility] Start: 12-04-2022 End: 12-04-2022 ambulatory DO Vinnie Stewart Work Phone: [facility] Work Phone: Start: 12-04-2022 End: 12-04-2022 Registered Recurring DO Vinnie Stewart Work Phone: [facility] Work Phone: Start: 11-29-2022 End: 11-29-2022 ambulatory Vinnie Stewart Other [facility] Other Start: 11-29-2022 Telephone encounter Vinnie Palomino [facility] Start: 11-27-2022 End: 11-27-2022 ambulatory Vinnie Stewart Other [facility] Other Start: 11-27-2022 Telephone encounter Vinnie Palomino [facility] Start: 11-20-2022 End: 12-20-2022 ambulatory BROWN Jorge L GIGI Facility:H1 Start: 11-14-2022 End: 11-15-[address] [facility] [place] Other Start: 11-14-2022 Telephone encounter Vinnie Palomino [facility] Start: 11-07-2022 (DM) Diabetes Brittnee Segovia [facility] Start: 11-07-2022 End: 11-07-2022 ambulatory Brittnee Spain Other [facility] Other Start: 11-07-2022 Registered Recurring DO Vinnie Stewart Work Phone: [facility] Work Phone: Start: 11-01-2022 End: 11-01-2022 ambulatory Brittnee Spain Other Othello [facility] Other Start: 11-01-2022 Telephone encounter Brittnee merritts [facility] Start: 10-31-2022 End: 10-31-2022 ambulatory Vinnie Stewart Other [facility] Other Start: 10-31-2022 Telephone encounter Vinnie Palomino [facility] Start: 10-27-2022 Telephone encounter Gisselle FRANCISCO [employer] Start: 10-27-2022 End: 10-28-2022 ambulatory BRYCE WATSON [facility] [employer] Other Start: 10-19-2022 End: 11-19-2022 ambulatory BROWN Jorge L GIGI Facility:H1 Start: 10-11-2022 End: 10-11-2022 ambulatory Brittnee Spain Other [facility] Other Start: 10-11-2022 Telephone encounter Brittnee merrittandreina [facility] Start: 10-09-2022 End: 10-09-2022 ambulatory Vinnie Stewart Other [facility] Other Start: 10-09-2022 Telephone encounter Vinnie Palomino [facility] Start: 10-05-2022 End: 10-05-2022 ambulatory Vinnie Stewart Other [facility] Other Start: 10-05-2022 Telephone encounter Vinnie Palomino [facility] Start: 10-03-2022 End: 10-03-[address] BIANCA STUART Facility:H1 Start: 09-28-2022 End: 09-28-2022 ambulatory Simba Jac Other [facility] Other Start: 09-28-2022 Office outpatient visit 15 minutes Gisselle Dickey [facility] Start: 09-28-2022 Office outpatient visit 25 minutes Simba Jac [facility] Start: 09-27-2022 End: 09-27-2022 ambulatory Vinnie Stewart Other [facility] Other Start: 09-27-2022 Telephone encounter Vinnie Palomino [facility] Start: 09-19-2022 End: 10-18-2022 ambulatory SHAIKH Jorge L YU Facility:H1 Start: 09-18-2022 Telephone encounter Brittnee Matt [facility] Start: 09-18-2022 End: 09-19-2022 ambulatory SIMBA JAC [facility] Other Start: 09-13-2022 End: 09-13-2022 ambulatory Vinnie Stewart Other [facility] Other Start: 09-13-2022 Office outpatient visit 15 minutes Vinnie FRANCISCO [facility] Start: 09-08-2022 End: 09-08-2022 ambulatory Vinnie Stewart Other [facility] Other Start: 09-08-2022 Telephone encounter Vinnie Palomino [facility] Start: 08-31-2022 End: 08-31-2022 ambulatory Brittnee Spain Other [facility] Other Start: 08-31-2022 Telephone encounter Brittnee merritts [facility] Start: 08-21-2022 End: 08-21-2022 ambulatory Vinnie Stewart Other [facility] Other Start: 08-21-2022 Telephone encounter Vinnie Palomino [facility] Start: 08-20-2022 End: 09-18-2022 ambulatory SHAIKH Jorge L YU Facility:H1 Start: 08-02-2022 End: 08-02-2022 ambulatory Vinnie Stewart Other [facility] Other Start: 08-02-2022 Telephone encounter Vinnie Palom[facility] Start: 07-31-2022 (DM) Diabetes Brittnee Segovia [facility] Start: 07-31-2022 End: 07-31-2022 ambulatory Brittnee Spain Other [facility] Other Start: 07-20-2022 End: 08-19-2022 ambulatory BROWN H FAWWAD Facility:H1 Start: 07-19-2022 End: 07-20-2022 ambulatory MASSIMO SWAN Facility:[facility]1 Start: 07-18-2022 End: 07-18-2022 ambulatory Brittnee Spain Other [facility] Other Start: 07-18-2022 Telephone encounter Brittnee harrington [facility] Start: 07-11-2022 End: 07-11-2022 ambulatory Vinnie Stewart Other [facility] Other Start: 07-11-2022 Telephone encounter Vinnie Palomino [facility] Start: 06-27-2022 End: 06-27-2022 ambulatory Vinnie Stewart Other [facility] Other Start: 06-27-2022 Telephone encounter Vinnie Palomino [facility] Start: 06-23-2022 End: 06-24-[address] [facility] Facility:H1 Start: 06-20-2022 End: 06-20-2022 ambulatory Vinnie Stewart Other [facility] Other Start: 06-20-2022 Office outpatient visit 15 minutes Vinnie FRANCISCO [facility] Start: 06-19-2022 Telephone encounter Brittnee harrington [facility] Start: 06-19-2022 End: 07-19-2022 ambulatory SHAIKH Jorge L YU [facility] Other Start: 06-13-2022 End: 06-16-2022 Evaluation and management of inpatient SHAIKH Jorge L YU Facility:H1 Start: 06-06-2022 End: 06-06-2022 ambulatory Vinnie Stewart Other [facility] Other Start: 06-06-2022 Telephone encounter Vinnie Palomino [facility] Start: 06-01-2022 End: 06-02-[address] [facility] Facility:H1 Start: 05-30-2022 End: 05-30-2022 ambulatory Vinnie Stewart Other [facility] Other Start: 05-30-2022 Telephone encounter Vinnie Palomino [facility] Start: 05-25-2022 End: 05-26-2022 ambulatory JORGE Goodman [facility] Facility:H1 Start: 05-19-2022 End: 06-16-2022 ambulatory SHAIKH Jorge L YU Facility:H1 Start: 05-18-2022 End: 05-19-2022 ambulatory JORGE Goodman [facility] Facility:H1 Start: 05-17-2022 End: 05-17-2022 ambulatory Brittnee Spain Other [facility] Other Start: 05-17-2022 Telephone encounter Brittnee Matt [place] [facility] Start: 05-16-2022 End: 05-16-2022 ambulatory Vinnie Stewart Other [facility] Other Start: 05-16-2022 Telephone encounter Vinnie Palom[facility] Start: 05-08-2022 End: 05-10-2022 ambulatory VINNIE STEWART Facility:[facility]1 Start: 05-04-2022 End: 05-04-2022 ambulatory Vinnie Stewart Other [facility] Other Start: 05-04-2022 Telephone encounter Vinnie Palomino [facility] Start: 04-28-2022 End: 05-02-2022 Evaluation and management of inpatient SHAIKH Jorge L YU Facility:H1 Start: 04-26-2022 End: 04-26-2022 ambulatory Brittnee Spain Other [facility] Other Start: 04-26-2022 Telephone encounter Brittnee Matt [place] [facility] Start: 04-25-2022 End: 04-25-2022 ambulatory Vinnie Stewart Other [facility] Other Start: 04-25-2022 Telephone encounter Vinnie Palomino [facility] Start: 04-24-2022 End: 04-24-2022 ambulatory Vinnie Stewart Other [facility] Other Start: 04-24-2022 Telephone encounter Vinnie ROSALES [facility] Start: 04-10-2022 End: 04-10-2022 ambulatory Brittnee Remalouisa Other [facility] Other Start: 04-10-2022 Telephone encounter Brittnee Remalouisa [facility] Start: 03-21-2022 End: 03-21-2022 ambulatory Vinnie Stewart Other [facility] Other Start: 03-21-2022 Telephone encounter Vinnie ROSALES [facility] Start: 03-17-2022 End: 03-17-2022 ambulatory Vinnie Stewart Other [facility] Other Start: 03-17-2022 Telephone encounter Vinnie ROSALES [facility] Start: 03-03-2022 End: 03-03-2022 ambulatory Vinnie Stewart Other [facility] Other Start: 03-03-2022 Telephone encounter Vinnie ROSALES [facility] Start: 03-02-2022 End: 03-02-2022 ambulatory Vinnie Stewart Other [facility] Other Start: 03-02-2022 Office outpatient visit 15 minutes Vinnie Stewart [facility] Start: 02-20-2022 End: 02-20-2022 ambulatory Vinnie Stewart Other [facility] Other Start: 02-20-2022 Telephone encounter Vinnie ROSALES [facility] Start: 02-19-2022 End: 02-19-2022 ambulatory Ruthie Guzman Other [facility] Other Start: 02-19-2022 Office outpatient visit 15 minutes Ruthie Guzman [facility] Start: 02-19-2022 Telephone encounter Vinnie [facility] Start: 02-10-2022 End: 02-10-2022 ambulatory Vinnie Stewart Other [facility] Other Start: 02-10-2022 Telephone encounter Vinnie Palomino [facility] Start: 02-07-2022 End: 02-07-2022 ambulatory Balbir Ba Other [facility] Other Start: 02-07-2022 Office outpatient visit 25 minutes Balbir Ba [facility] Start: 02-06-2022 End: 02-06-2022 ambulatory Vinnie Stewart Other [facility] Other Start: 02-06-2022 Telephone encounter Vinnie [facility]om[facility] Start: 01-27-2022 End: 01-27-2022 ambulatory Vinnie Stewart Other [facility] Other Start: 01-27-2022 Telephone encounter Vinnie Palomino [facility] Start: 01-26-2022 End: 01-26-2022 ambulatory Vinnie Stewart Other [facility] Other Start: 01-26-2022 Telephone encounter Vinnie Palomino [facility] Start: 01-11-2022 (DM) Diabetes Brittnee [facility] Start: 01-11-2022 End: 01-11-2022 ambulatory Brittnee Spain Other [facility] Other Start: 01-10-2022 End: 01-10-2022 ambulatory Vinnie Stewart Other [facility] Other Start: 01-10-2022 Telephone encounter Vinnie Palom[facility] Start: 01-05-2022 End: 01-05-2022 ambulatory Brittnee Spain Other [facility] Other Start: 01-05-2022 Telephone encounter Brittnee Matt [facility] Start: 12-26-2021 End: 12-26-2021 ambulatory Vinnie Stewart Other [facility] Other Start: 12-26-2021 Telephone encounter Vinnie Palom[facility] Start: 12-20-2021 End: 12-20-2021 ambulatory Brittneejorge l Spain Other [facility] Other Start: 12-20-2021 Telephone encounter Brittnee Matt [facility] Start: 12-09-2021 End: 12-09-2021 ambulatory Vinnie Stewart Other [facility] Other Start: 12-09-2021 Telephone encounter Vinnie Palom[facility] Start: 11-30-2021 End: 11-30-2021 ambulatory Vinnie Stewart Other [facility] Other Start: 11-30-2021 Telephone encounter Vinnie Palomino [facility] Start: 11-29-2021 End: 11-29-2021 ambulatory Brittnee Spain Other [facility] Other Start: 11-29-2021 Telephone encounter Brittnee merritts [facility] Start: 11-28-2021 End: 11-28-2021 ambulatory Brittnee Spain Other [facility] Other Start: 11-28-2021 Telephone encounter Vinnie Palomino [facility] Start: 11-21-2021 End: 11-21-2021 ambulatory Brittnee Spain Other [facility] Other Start: 11-21-2021 Telephone encounter Brittnee Spain F [facility] Start: 11-17-2021 End: 11-17-2021 ambulatory Vinnie Stewart Other [facility] Other Start: 11-17-2021 Telephone encounter Vinnie Palomino [facility] Start: 11-16-2021 (DM) Diabetes Brittnee Scally [facility] Start: 11-16-2021 End: 11-16-2021 ambulatory Brittnee Spain Other [facility] Other Start: 10-11-2021 End: 10-11-2021 ambulatory Vinnie Stewart Other [facility] Other Start: 10-11-2021 Telephone encounter Vinnie duron [facility] Start: 10-10-2021 End: 10-10-2021 ambulatory Vinnie Stewart Other [facility] Other Start: 10-10-2021 Telephone encounter Vinnie Palomino [facility] Start: 10-05-2021 (DM) Diabetes Brittnee Judit [facility] Start: 10-05-2021 End: 10-05-2021 ambulatory Brittnee Spain Other [facility] Other Start: 09-26-2021 End: 09-26-2021 ambulatory Vinnie Stewart Other [facility] Other Start: 09-26-2021 Office outpatient visit 15 minutes Vinnie FRANCISCO [facility] Start: 09-16-2021 End: 09-16-2021 ambulatory Brittnee Spain Other [facility] Other Start: 09-16-2021 Telephone encounter Brittnee Scally [facility] [place] [facility] Start: 04-12-2021 End: 04-17-2021 Evaluation and management of inpatient [place] Facility:[facility] Start: 12-16-2020 End: 12-16-2020 Patient encounter procedure Vinnie Stewart [facility] Start: 12-06-2020 Registered Recurring Vinnie Stewart Diabetes [facility] Start: 12-18-2019 End: 12-18-2019 Discharged Recurring [...] of head without contrast DO Vinnie Rivera crispinliyda Work Phone: Start: 02-13-2023 Plain chest X-ray [...] Date Care Activity Detail Author Start: 02-05-2024 [facility] Start: 02-04-2024 Physical therapy procedure [facility] Start: 01-30-2024 Referral to vascular surgeon [facility] Start: 01-29-2024 Referral to vascular surgeon [facility] Start: 01-29-2024 Referral to residential construction instructor [facility] Start: 01-28-2024 Referral to infectio us diseases physician [facility] Start: 01-28-2024 Hospital admission [facility] Start: 01-28-2024 Referral to ear muff assembler [facility] Start: 02-23-2023 [facility] Start: 02-22-2023 [facility] Start: 02-21-2023 [facility] Start: 02-20-2023 [facility] Start: 02-19-2023 [facility] Start: 02-18-2023 Blood chemistry [facility] Start: 02-18-2023 [facility] Start: 02-17-2023 Blood chemistry [facility] Start: 02-17-2023 [facility] Start: 02-16-2023 Blood chemistry [facility] Start: 02-16-2023 [facility] Start: 02-15-2023 Blood chemistry [facility] Start: 02-15-2023 [facility] Start: 02-14-2023 Blood chemistry [facility] Start: 02-14-2023 End: 02-14-2023 [facility] Start: 02-14-2023 [facility] Start: 02-13-2023 Hospital admission [facility] Start: 02-13-2023 Physical therapy procedure [facility] Start: 02-13-2023 Referral to occupati onal therapist [facility] Start: 02-13-2023 [facility] Patient Education [facility] Work Phone: Patient referral [facility] Work Phone: [facility] Immunizations Immunization Date Immunization Notes Care Provider Marilyn ramos 08-23-2021 COVID-19 Vaccine Pfizer - Documentation Purposes Only Vinnie Stewart Other [facility] 08-10-2021 influenza, seasonal, injectable Vinnie Stewart Other [facility] 01-14-2021 COVID-19 Vaccine Pfizer - Documentation Purposes Only Vinnie Stewart Other [facility] 01-04-2021 COVID-19 Vaccine Moderna - Documentation Purposes Only Vinnie Stewart Other [facility] 12-24-2020 COVID-19 Vaccine Pfizer - Documentation Purposes Only Vinnie Stewart Other [facility] 10-19-2020 pneumococcal conjugate vaccine, 13 valent Vinnie Stewart Other [facility] 08-16-2018 zoster vaccine recombinant Vinnie Stewart Other [facility] 08-23-2016 pneumococcal polysaccharide vaccine, 23 valent Vinnie Stewart Other [facility] 08-21-2016 influenza, injectable, quadrivalent, preservative free DO Vinnie Stewart Work Phone: [facility] 08-21-2016 influenza, injectable, quadrivalent, contains preservative Vinnie Stewart Other [facility] [place] Other NEGATED: Highlighted row has not occurred! 5 influenza, injectable, quadrivalent, contains preservative Patient Objection Vinnie Stewart Other [facility] [place] Other Payers Date Payer Category Payer Self-pay [id number] 1960 Medicaid [id number] 1959 Unknown [id number] 1954 Unknown [id number] 2.16.8 40.1.979732.3.579.2.647 1954 Unknown [id number] 2.16.84 0.1.629981.3.579.2.593 1954 Unknown [id number] 2.16.84 0.1.091534.3.579.2.593 1954 Unknown [id number] 2.16.84 0.1.294802.3.579.2.593 1954 Unknown [id number] 2.16.84 0.1.104057.3.579.2.593 1954 Unknown [id number] 2.16.84 0.1.492584.3.579.2.593 1954 Unknown [id number] 2.16.84 0.1.690410.3.579.2.593 1954 Unknown [id number] 2.16.84 0.1.024037.3.579.2.593 1954 Unknown [id number] 2.16.84 0.1.539261.3.579.2.593 1954 Unknown [id number] 2.16.84 0.1.356025.3.579.2.593 1954 Unknown [id number] 2.16.84 0.1.061518.3.579.2.593 1954 Unknown [id number] 2.16.84 0.1.039218.3.579.2.593 1954 Unknown [id number] 2.16.84 0.1.123066.3.579.2.593 1954 Unknown [id number] 2.16.84 0.1.581710.3.579.2.593 1954 Unknown [id number] 2.16.84 0.1.540994.3.579.2.593 1954 Unknown [id number] 2.16.84 0.1.172369.3.579.2.593 1954 Unknown [id number] 2.16.84 0.1.658344.3.579.2.593 1954 Unknown [id number] 2.16.84 0.1.614058.3.579.2.593 1954 Unknown [id number] 2.16.84 0.1.309942.3.579.2.593 1954 Unknown [id number] 2.16.84 0.1.432777.3.579.2.593 1954 Unknown [id number] 2.16.84 0.1.171995.3.579.2.593 1954 Unknown [id number] 2.16.84 0.1.245609.3.579.2.593 1954 Unknown [id number] 2.16.84 0.1.235746.3.579.2.593 1954 Unknown [id number] 2.16.84 0.1.035071.3.579.2.593 1954 Unknown [id number] 2.16.84 0.1.748315.3.579.2.593 1954 Unknown [id number] 2.16.84 0.1.665947.3.579.2.593 1954 Unknown [id number] 2.16.84 0.1.893128.3.579.2.593 1954 Unknown [id number] 2.16.84 0.1.132051.3.579.2.593 1954 Unknown [id number] 2.16.84 0.1.137332.3.579.2.593 1954 Unknown [id number] 2.16.84 0.1.127263.3.579.2.593 1954 Unknown [id number] 2.16.84 0.1.529446.3.579.2.593 1954 Unknown [id number] 2.16.84 0.1.993049.3.579.2.593 1954 Unknown [id number] 2.16.84 0.1.357689.3.579.2.593 1954 Unknown [id number] 2.16.84 0.1.939488.3.579.2.593 1954 Unknown [id number] 2.16. 840.1.560292.3.579.2.732 1954 Unknown [id number] 2.16.8 40.1.575274.3.579.2.1286 Medicare [id number] Unknown [id number] Unknown [id number] 2.16.8 40.1.910275.3.579.2.531 Unknown [id number] 2.16.8 40.1.680558.3.579.2.531 Unknown [id number] 2.16.8 40.1.891005.3.579.2.531 Unknown [id number] 2.16.8 40.1.062221.3.579.2.531 Social History Date Type Detail Facility Start: 12-18-2019 End: 01-30-2024 Tobacco smoking status MDIS Ex-smoker (finding) [facility] Start: 1955 Sex Assigned At Male F [facility] Sex Assigned At Sex Assigned At Bir th Othello Grouper Other Medical Equipment Procedure Code Equipment Code Equipment Origin al Text Equipment Identifier Dates Insertion, catheter, dialysis, tunneled, with imaging guidance Double-lumen haemodialysis catheter, implantable [id number] [facility] Start: 01-31-2024 Pen Dennison 32G X 4 MM Start: 03-21-2022 Goals Date Patient Goal Desired Activity /State Functional Status Date Assessment Result Facility 02-05-2024 Functional status Patient at Baseline [facility] Work Phone: 02-14-2023 Functional status Patient at Baseline [facility] Work Phone: Mental Status Date Assessment Result Facility 02-05-2024 Cognitive function Cognitive Sta tus Patient at Baseline [facility] Work Phone: 02-14-2023 Cognitive function Cognitive Sta tus Patient at Baseline [facility] Work Phone: Clinical Notes 04-18-2021 to 02-05-2024 Note Date & Type Note Facility 02-05-2024 Progress note Note Date/Time February 04, 2024 7:59pm [facility] [address] [place] [address] Hospitalist Progress Note Signed Patient: Adwoa Porter MR#: [id number] : 1955 Acct:[id number] Age/Sex: 68 / M Adm Date: 4 Loc: Room: 4E3439-4 Type: ADM IN Attending Dr: Swathi Burnham [...] Syringe IV-PUSH 01/30/25 21:59 Not Given QSHIFT [facility] Heparin Sodium (Porcine) 3,800 unit 01/31/24 16:13 [...] 1,000 Ml IV 02/03/25 08:14 100 mls/hr .[id number] [facility] Administration Insulin Aspart 0 units 01/28/24 22:45 02/04/24 17:13 Insulin Aspart 300 Units/3 Ml Insuln.Pen SUBCUT 01/27/25 22:44 Not Given TID.WM.HS [facility] Protocol Isosorbide Dinitrate 20 mg 01/29/24 09:00 02/04/24 10:08 Isosorbide Dinitrate 20 Mg Tablet PO 01/28/25 08:59 Not Given BID [facility] Levothyroxine Sodium 50 mcg 01/30/24 06:30 02/04/24 06:11 Levothyroxine 50 Mcg Tablet PO 01/29/25 06:29 50 mcg DAILY@0630 [facility] Administration Loperamide HCl 2 mg 01/30/24 10:32 02/01/24 13:28 Loperamide 2 Mg Capsule PO 01/29/25 10:31 2 mg Q2H PRN Administration Diarrhea Nitroglycerin 0.4 mg 01/28/24 21:44 Nitroglycerin 0.4 Mg Tab.Subl SUBLINGUAL 01/27/25 21:43 Q5MIN.X3 PRN Chest Pain Nystatin 1 applic 01/30/24 09:00 02/04/24 18:42 Nystatin 100,000 Unit/Gram Powder 15 Gm Bottle TOPICAL 01/29/25 08:59 1 applic QID [facility] Administration Ondansetron HCl 4 mg 02/01/24 14:35 [...] signed by Swathi Burnham MD> 02/05/[address] [facility] Work Phone: 1(325) 828-350403-19-2024 Progress note Author Simba Kaufman [facility] February 05, 2024 1:04pm Note Date/Time February 05, 2024 1:0 4pm [facility] [address] [place] [address] Nephrology Progress Note Signed Patient: Adwoa Porter MR#: [id number] : 1955 Acct:[id number] Age/Sex: 68 / M Adm Date: 4 Loc: Room: [address] [place] [address] Type: ADM IN Attending Dr: Swathi Burnham MD Copies to: ~ Date of Service: 02/05/2024 Subjective Subjective Narrative: This is 68-year-old male patient with past medical history of systolic heart failure ejection fraction 10 to 15%, CKD stage III baseline creatinine around 1.5 mg deciliter last year, type 2 diabetes, hyperlipidemia, AICD in place, hypertension, COPD. Patient was admitted recently to [facility] for septic shock from cellulitis. Patient was stabilized and discharged to [facility] withamikacin and 2 other antibiotics. Lab at [facility] revealed SHIRA, hyperkalemia and hyponatremia and patient was sent to [facility]. Lab work this morning revealed potassium 5.3 [...] Skin: No rashes , warm to touch [employer] SALES: Awake,Alert, following simple command Musculoskeletal: No joint [...] 2.5 Mg Tablet) 2.5 mg PO BID [facility] Stop: 01/31/25 20:59 Last Admin: 02/05/24 09:12 Dose: 2.5 mg Aspirin (Aspirin 81 Mg Tablet.) 81 mg PO DAILY [facility] Stop: 01/31/25 08:59 Last Admin: 02/05/24 09:12 Dose: 81 mg Atorvastatin Calcium (Atorvastatin 80 Mg Tablet) 80 mg PO DAILY [facility] Stop: 01/28/25 08:59 Last Admin: 02/05/24 09:12 Dose: 80 mg Budesonide/Formoterol Fumarate (Budesonide/Formoterol 160-4.5 Mcg 60 Puff/6 Gm Hfa.Aer.Ad) 2 puff INHALATION BID [facility] Stop: 01/31/25 08:59 Calcitriol (Calcitriol 0.25 Mcg Capsule) 0.25 mcg PO MoWeFr@0900 [facility] Stop: 02/05/25 08:59 Carvedilol (Carvedilol 12.5 Mg Tablet) 12.5 mg PO BID [facility] Stop: 01/28/25 08:59 Last Admin: 02/05/24 09:13 Dose: 12.5 mg Cyanocobalamin (Cyanocobalamin 1,000 Mcg Tablet) 1,000 mcg PO DAILY [facility] Stop: 01/31/25 08:59 Last Admin: 02/05/24 09:12 Dose: 1,000 mcg Gabapentin (Gabapentin 100 Mg Capsule) 200 mg PO TID PRN PRN Reason: nerve pain Stop: 01/30/25 21:59 Last Admin: 02/05/24 09:12 Dose: 200 mg Heparin Sodium (Porcine) (Heparin-Lock 500 Unit/5 Ml Syringe) 500 unit IV-PUSH QSHIFT [facility] Stop: 01/30/25 21:59 Last Admin: 02/05/24 05:06 Dose: Not Given Heparin Sodium (Porcine) (Heparin 10,000 Unit/10 Ml Vial) 3,800 unit IV PRN PRN PRN Reason: Dialysis Stop: 01/28/25 14:06 Last Admin: 02/04/24 15:03 Dose: 3,800 unit Hydralazine HCl (Hydralazine 50 Mg Tablet) 50 mg PO TID [facility] Stop: 01/27/25 21:59 Last Admin: 02/05/24 09:13 [...] 100 mls @ 200 mls/hr IV Q24H [facility] Stop: 02/02/25 13:59 Last Admin: 02/04/24 17:56 Dose: 200 mls/hr Insulin Aspart (Insulin Aspart 300 Units/3 Ml Insuln.Pen) 0 units SUBCUT TID..[facility]; Protocol Stop: 01/27/25 22:44 Last Admin: 02/05/24 09:15 Dose: 3 units Isosorbide Dinitrate (Isosorbide Dinitrate 20 Mg Tablet) 20 mg PO BID [facility] Stop: 01/28/25 08:59 Last Admin: 02/05/24 09:12 Dose: 20 mg Levothyroxine Sodium (Levothyroxine 50 Mcg Tablet) 50 mcg PO DAILY@0630 [facility] Stop: 01/29/25 06:29 Last Admin: 02/05/24 05:45 Dose: 50 mcg Linezolid (Linezolid 600 Mg Tablet) 600 mg PO BID [facility] Loperamide HCl (Loperamide 2 Mg Capsule) 2 mg PO Q2H PRN PRN Reason: Diarrhea Stop: 01/29/25 10:31 Last Admin: 02/05/24 11:33 Dose: 2 mg Nitroglycerin (Nitroglycerin 0.4 Mg Tab.Subl) 0.4 mg SUBLINGUAL Q5MIN.X3 PRN PRN Reason: Chest Pain Stop: 01/27/25 21:43 Nystatin (Nystatin 100,000 Unit/Gram Powder 15 Gm Bottle) 1 applic TOPICAL QID [facility] Stop: 01/29/25 08:59 Last Admin: 02/05/24 08:03 [...] lower leg: Plan: Patient was admitted to [facility] recently with septic shock from cellulitis. [...] <Electronically signed by Simba Kaufman MD> 02/05/24 9832 [facility] Work Phone: 1(429) 411-855603-19-2024 Progress note Author Farhan Schofield [facility] February 05, 2024 9:20am Note Date/Time February 05, 2024 9:2 0am [facility] [address] [place] [address] Infect. Disease Progress Note Signed Patient: Adwoa Porter MR#: [id number] : 1955 Acct:[id number] Age/Sex: 68 / M Adm Date: 4 Loc: 4P Room: 2Q0772-4 Type: ADM IN Attending Dr: Swathi Burnham [...] 50 Mg Tablet) 50 mg PO TID [facility] Stop: 01/27/25 21:59 Last Admin: 02/05/24 09:13 [...] 300 mls @ 300 mls/hr IV Q12H [facility] Last Admin: 02/05/24 03:32 Dose: 300 mls/hr Ertapenem 0.5 gm/ Sodium (Chloride) 100 mls @ 200 mls/hr IV Q24H [facility] Stop: 02/02/25 13:59 Last Admin: 02/04/24 17:56 Dose: 200 mls/hr Insulin Aspart (Insulin Aspart 300 Units/3 Ml Insuln.Pen) 0 units SUBCUT TID.WM[facility]; Protocol Stop: 01/27/25 22:44 Last Admin: 02/05/24 09:15 Dose: 3 units Isosorbide Dinitrate (Isosorbide Dinitrate 20 Mg Tablet) 20 mg PO BID [facility] Stop: 01/28/25 08:59 Last Admin: 02/05/24 09:12 Dose: 20 mg Levothyroxine Sodium (Levothyroxine 50 Mcg Tablet) 50 mcg PO DAILY@0630 [facility] Stop: 01/29/25 06:29 Last Admin: 02/05/24 05:45 [...] 10 Ml Syringe) 0 ml IV-PUSH QSHIFT [facility] Stop: 01/30/25 21:59 Last Admin: 02/05/24 05:45 Dose: 10 ml Vitamin D (Cholecalciferol 25 Mcg (1,000 Units) Tablet) 50 mcg PO DAILY [facility] Stop: 01/31/25 08:59 Last Admin: 02/05/24 09:12 [...] skin cedric only. Cultures were obtained from [place]. Antibiotics adjusted tolinezolid and ertapenem. Admission leukocytosis has resolved. Will continue ertapenem IV but switch Linezolid to oral. Given concern for underlying osteomyelitis planning prolonged treatment course. Patient will need platelets followed while on Linezolid. Wound care the foot is being managed by Dr. Arroyo in [place]. Documented By: Farhan Schofield MD 02/05/24917 Signed By: <Electronically signed by MD Farhan Schofield> 02/05/24919 [facility] Work Phone: 1(873) 187-198803-18-2024 Progress note Author Valentin Valle [facility] February 04, 2024 6:29pm Note Date/Time February 04, 2024 6:2 9pm [facility] [address] [place] [address] Podiatry Progress Note Signed Patient: Adwoa Porter MR#: [id number] : 1955 Acct:[id number] Age/Sex: 68 / M Adm Date: 4 Loc: Room: [address] [place] [address] Type: ADM IN Attending Dr: Swathi Burnham [...] Dr. Andrews. Theculture that was taken at [facility] revealed normal skinflora. Patient's antibiotic therapy is [...] From podiatry standpoint okay to discharge back [facility] with current wound care orders. Will continue [...] By: <Electronically signed by NELLY Valle> 02/04/[address] [facility] Work Phone: 1(896) 873-810003-18-2024 Progress note Author Simba Kaufman [facility] February 04, 2024 5:59pm Note Date/Time February 04, 2024 1:3 0pm [facility] [address] [place], [place] [id number] Nephrology Progress Note Signed Patient: Adwoa Porter MR#: [id number] : 1955 Acct:[id number] Age/Sex: 68 / M Adm Date: 4 Loc: Room: [address] [place] [address] Type: ADM IN Attending Dr: Swathi Burnham MD Copies to: ~ Date of Service: 02/04/2024 Subjective Subjective Narrative: This is 68-year-old male patient with past medical history of systolic heart failure ejection fraction 10 to 15%, CKD stage III baseline creatinine around 1.5 mg deciliter last year, type 2 diabetes, hyperlipidemia, AICD in place, hypertension, COPD. Patient was admitted recently to [facility] for septic shock from cellulitis. Patient was stabilized and discharged to [facility] withamikacin and 2 other antibiotics. Lab at [facility] revealed SHIRA, hyperkalemia and hyponatremia and patient was sent to [facility]. Lab work this morning revealed potassium 5.3 [...] Skin: No rashes , warm to touch [employer] SALES: Awake,Alert, following simple command Musculoskeletal: No joint [...] 2.5 Mg Tablet) 2.5 mg PO BID [facility] Stop: 01/31/25 20:59 Last Admin: 02/04/24 10:08 Dose: Not Given Aspirin (Aspirin 81 Mg Tablet.) 81 mg PO DAILY [facility] Stop: 01/31/25 08:59 Last Admin: 02/03/24 08:24 [...] 300 mls @ 300 mls/hr IV Q12H [facility] Last Admin: 02/04/24 03:43 Dose: 300 mls/hr Ertapenem 0.5 gm/ Sodium (Chloride) 100 mls @ 200 mls/hr IV Q24H [facility] Stop: 02/02/25 13:59 Last Admin: 02/03/24 14:11 Dose: 200 mls/hr Sodium Chloride (0.9% Sodium Chloride 1,000 Ml) 1,000 mls @ 75 mls/hr IV .[id number] [facility] Stop: 02/03/25 08:14 Last Admin: 02/04/24 08:04 Dose: 100 mls/hr Insulin Aspart (Insulin Aspart 300 Units/3 Ml Insuln.Pen) 0 units SUBCUT TID..[facility]; Protocol Stop: 01/27/25 22:44 Last Admin: 02/04/24 10:07 Dose: 3 units Isosorbide Dinitrate (Isosorbide Dinitrate 20 Mg Tablet) 20 mg PO BID [facility] Stop: 01/28/25 08:59 Last Admin: 02/04/24 10:08 Dose: Not Given Levothyroxine Sodium (Levothyroxine 50 Mcg Tablet) 50 mcg PO DAILY@0630 [facility] Stop: 01/29/25 06:29 Last Admin: 02/04/24 06:11 Dose: 50 mcg Loperamide HCl (Loperamide 2 Mg Capsule) 2 mg PO Q2H PRN PRN Reason: Diarrhea Stop: 01/29/25 10:31 Last Admin: 02/01/24 13:28 Dose: 2 mg Nitroglycerin (Nitroglycerin 0.4 Mg Tab.Subl) 0.4 mg SUBLINGUAL Q5MIN.X3 PRN PRN Reason: Chest Pain Stop: 01/27/25 21:43 Nystatin (Nystatin 100,000 Unit/Gram Powder 15 Gm Bottle) 1 applic TOPICAL QID [facility] Stop: 01/29/25 08:59 Last Admin: 02/04/24 10:08 [...] lower leg: Plan: Patient was admitted to [facility] recently with septic shock from cellulitis. [...] <Electronically signed by Simba Kaufman MD> 02/04/24 9320 [facility] Work Phone: 1(663) 583-261103-18-2024 Progress note Author Farhan Schofield [facility] February 04, 2024 10:01am Note Date/Time February 04, 2024 10: 01am [facility] [address] [place] [address] Infect. Disease Progress Note Signed Patient: Adwoa Porter MR#: [id number] : 1955 Acct:[id number] Age/Sex: 68 / M Adm Date: 4 Loc: Room: [address] [place] [address] Type: ADM IN Attending Dr: Farhan Hudson [...] 300 mls @ 300 mls/hr IV Q12H [facility] Last Admin: 02/04/24 03:43 Dose: 300 mls/hr Ertapenem 0.5 gm/ Sodium (Chloride) 100 mls @ 200 mls/hr IV Q24H [facility] Stop: 02/02/25 13:59 Last Admin: 02/03/24 14:11 Dose: 200 mls/hr Sodium Chloride (0.9% Sodium Chloride 1,000 Ml) 1,000 mls @ 75 mls/hr IV .[id number] [facility] Stop: 02/03/25 08:14 Last Admin: 02/04/24 08:04 Dose: 100 mls/hr Insulin Aspart (Insulin Aspart 300 Units/3 Ml Insuln.Pen) 0 units SUBCUT TID.[facility]; Protocol Stop: 01/27/25 22:44 Last Admin: 02/03/24 21:06 Dose: 3 units Isosorbide Dinitrate (Isosorbide Dinitrate 20 Mg Tablet) 20 mg PO BID [facility] Stop: 01/28/25 08:59 Last Admin: 02/03/24 21:04 Dose: 20 mg Levothyroxine Sodium (Levothyroxine 50 Mcg Tablet) 50 mcg PO DAILY@0630 [facility] Stop: 01/29/25 06:29 Last Admin: 02/04/24 06:11 Dose: 50 mcg Loperamide HCl (Loperamide 2 Mg Capsule) 2 mg PO Q2H PRN PRN Reason: Diarrhea Stop: 01/29/25 10:31 Last Admin: 02/01/24 13:28 Dose: 2 mg Nitroglycerin (Nitroglycerin 0.4 Mg Tab.Subl) 0.4 mg SUBLINGUAL Q5MIN.X3 PRN PRN Reason: Chest Pain Stop: 01/27/25 21:43 Nystatin (Nystatin 100,000 Unit/Gram Powder 15 Gm Bottle) 1 applic TOPICAL QID [facility] Stop: 01/29/25 08:59 Last Admin: 02/04/24 01:09 [...] foot drainage here with light normal skin cedrci only. Cultures were obtained from [place]. Antibiotics adjusted tolinezolid and ertapenem. Admission leukocytosis has improved and today is down to 10.1. Urine culture as above but only 15,000 colonies and sensitive to Invanz. Continuing Invanz and linezolid. Documented By: Farhan Schofield MD 02/04/24 0958 Signed By: <Electronically signed by MD Farhan Schofield> 02/04/24 8880 [facility] Work Phone: 1(748) 153-454903-18-2024 [facility], [facility]24 4:43pm Note Date/Time February 03, 2024 4:4 3pm [facility] [address] [place] [address] Hospitalist Progress Note Signed Patient: Adwoa Porter MR#: [id number] : 1955 Acct:[id number] Age/Sex: 68 / M Adm Date: 4 Loc: Room: [address] [place] [address] Type: ADM IN Attending Dr: Farhan Hudson [...] on the region has exhibited improvement. His [id number] score is at minimum 5. Labile on [...] signed by Farhan Hudson DO> 02/03/24 1643 [facility] Work Phone: 1(309) 215-602003-17-2024 Progress note Author Lia Law [facility] February 03, 2024 11:03am Note Date/Time February 03, 2024 11: 03am [facility] [address] [place] [address] Nephrology Progress Note Signed Patient: Adwoa Porter MR#: [id number] : 1955 Acct:[id number] Age/Sex: 68 / M Adm Date: 4 Loc: Room: [address] [place] [address] Type: ADM IN Attending Dr: Farhan Hudson DO Copies to: ~ Date of Service: 02/03/2024 Subjective Subjective Narrative: This is 68-year-old male patient with past medical history of systolic heart failure ejection fraction 10 to 15%, CKD stage III baseline creatinine around 1.5 mg deciliter last year, type 2 diabetes, hyperlipidemia, AICD in place, hypertension, COPD. Patient was admitted recently to [facility] for septic shock from cellulitis. Patient was stabilized and discharged to [facility] withamikacin and 2 other antibiotics. Lab at [facility] revealed SHIRA, hyperkalemia and hyponatremia and patient was sent to [facility]. Lab work this morning revealed potassium 5.3 [...] 50 Mg Tablet) 50 mg PO TID [facility] Stop: 01/27/25 21:59 Last Admin: 02/03/24 08:23 [...] 300 mls @ 300 mls/hr IV Q12H [facility] Last Admin: 02/03/24 03:30 Dose: 300 mls/hr Ertapenem 0.5 gm/ Sodium (Chloride) 100 mls @ 200 mls/hr IV Q24H [facility] Stop: 02/02/25 13:59 Insulin Aspart (Insulin Aspart 300 Units/3 Ml Insuln.Pen) 0 units SUBCUT TID..[facility]; Protocol Stop: 01/27/25 22:44 Last Admin: 02/03/24 08:21 Dose: 4 units Isosorbide Dinitrate (Isosorbide Dinitrate 20 Mg Tablet) 20 mg PO BID [facility] Stop: 01/28/25 08:59 Last Admin: 02/03/24 08:23 Dose: 20 mg Levothyroxine Sodium (Levothyroxine 50 Mcg Tablet) 50 mcg PO DAILY@0630 [facility] Stop: 01/29/25 06:29 Last Admin: 02/03/24 06:02 [...] lower leg: Plan: Patient was admitted to [facility] recently with septic shock from cellulitis. [...] <Electronically signed by Lia Law MD> 02/03/24 3865 [facility] Work Phone: 1(881) 794-921203-16-2024 Progress note Author Farhan Hudson [facility] February 02, 2024 3:04pm Note Date/Time February 02, 2024 3:0 4pm [facility] [address] [place] [address] Hospitalist Progress Note Signed Patient: Adwoa Porter MR#: [id number] : 1955 Acct:[id number] Age/Sex: 68 / M Adm Date: 4 Loc: 4 Room: 7R1514-3 Type: ADM IN Attending Dr: Farhan Hudson [...] this will be a continued risk. His [id number] score is at minimum 5. Eliquis 2.5 [...] Tablet PO 01/31/25 20:59 Not Given BID [facility] Aspirin 81 mg 02/01/24 09:00 02/01/24 08:44 [...] Syringe IV-PUSH 01/30/25 21:59 Not Given QSHIFT [facility] Heparin Sodium (Porcine) 3,800 unit 01/31/24 16:13 [...] Insuln.Pen SUBCUT 01/27/25 22:44 Not Given TID.WM.HS [facility] Protocol Isosorbide Dinitrate 20 mg 01/29/24 09:00 [...] signed by Farhan Hudson DO> 02/02/[address] [facility] Work Phone: [phone]) 571-774803-16-2024 Progress note Author [facility]in [facility] February 02, 2024 12:48pm Note Date/Time February 02, 2024 12: 48pm [facility] [address] [place] [address] Podiatry Progress Note Signed Patient: Adwoa Porter MR#: [id number] : 1955 Acct:[id number] Age/Sex: 68 / M Adm Date: 4 Loc: Room: [address] [place] [address] Type: ADM IN Attending Dr: Farhan Hudson [...] . The culture that was taken at [facility] revealed normal skin cedric. Patient's antibiotic therapy [...] From podiatry standpoint okay to discharge back [facility] with current wound care orders. Will continue [...] <Electronically signed by NELLY Valle> 02/02/24 1248 [facility] Work Phone: [phone] Progress note Author Lia Law [facility] February 02, 2024 12:47pm Note Date/Time February 02, 2024 12: 47pm [facility] [address] [place] [address] Nephrology Progress Note Signed Patient: Adwoa Porter MR#: [id number] : 1955 Acct:[id number] Age/Sex: 68 / M Adm Date: 4 Loc: Room: [address] [place] [address] Type: ADM IN Attending Dr: Farhan Hudson DO Copies to: ~ Date of Service: 02/02/2024 Subjective Subjective Narrative: This is 68-year-old male patient with past medical history of systolic heart failure ejection fraction 10 to 15%, CKD stage III baseline creatinine around 1.5 mg deciliter last year, type 2 diabetes, hyperlipidemia, AICD in place, hypertension, COPD. Patient was admitted recently to [facility] for septic shock from cellulitis. Patient was stabilized and discharged to [facility] withamikacin and 2 other antibiotics. Lab at [facility] revealed SHIRA, hyperkalemia and hyponatremia and patient was sent to [facility]. Lab work this morning revealed potassium 5.3 [...] 2.5 Mg Tablet) 2.5 mg PO BID [facility] Stop: 01/31/25 20:59 Last Admin: 02/02/24 09:58 Dose: Not Given Aspirin (Aspirin 81 Mg Tablet.Dr) 81 mg PO DAILY [facility] Stop: 01/31/25 08:59 Last Admin: 02/01/24 08:44 Dose: 81 mg Atorvastatin Calcium (Atorvastatin 80 Mg Tablet) 80 mg PO DAILY [facility] Stop: 01/28/25 08:59 Last Admin: 02/01/24 08:45 Dose: 80 mg Budesonide/Formoterol Fumarate (Budesonide/Formoterol 160-4.5 Mcg 60 Puff/6 Gm Hfa.Aer.Ad) 2 puff INHALATION BID [facility] Stop: 01/31/25 08:59 Carvedilol (Carvedilol 12.5 Mg Tablet) 12.5 mg PO BID [facility] Stop: 01/28/25 08:59 Last Admin: 02/02/24 09:59 Dose: Not Given Cyanocobalamin (Cyanocobalamin 1,000 Mcg Tablet) 1,000 mcg PO DAILY [facility] Stop: 01/31/25 08:59 Last Admin: 02/01/24 08:44 Dose: 1,000 mcg Gabapentin (Gabapentin 100 Mg Capsule) 200 mg PO TID PRN PRN Reason: nerve pain Stop: 01/30/25 21:59 Last Admin: 02/01/24 15:37 Dose: 200 mg Heparin Sodium (Porcine) (Heparin-Lock 500 Unit/5 Ml Syringe) 500 unit IV-PUSH QSHIFT [facility] Stop: 01/30/25 21:59 Last Admin: 02/02/24 07:02 Dose: Not Given Heparin Sodium (Porcine) (Heparin 10,000 Unit/10 Ml Vial) 3,800 unit IV PRN PRN PRN Reason: Dialysis Stop: 01/28/25 14:06 Last Admin: 02/02/24 12:08 Dose: 3,800 unit Hydralazine HCl (Hydralazine 50 Mg Tablet) 50 mg PO TID [facility] Stop: 01/27/25 21:59 Last Admin: 02/02/24 09:59 Dose: Not Given Linezolid (Zyvox) 600 mg in 300 mls @ 300 mls/hr IV Q12H [facility] Last Admin: 03/15/24 23:20 Dose: 300 mls/hr [...] 100 mls @ 200 mls/hr IV Q24H [facility] Stop: 01/30/25 09:59 Last Admin: 02/01/24 10:35 Dose: 200 mls/hr Insulin Aspart (Insulin Aspart 300 Units/3 Ml Insuln.Pen) 0 units SUBCUT TID..[facility]; Protocol Stop: 01/27/25 22:44 Last Admin: 02/01/24 21:02 Dose: 4 units Isosorbide Dinitrate (Isosorbide Dinitrate 20 Mg Tablet) 20 mg PO BID [facility] Stop: 01/28/25 08:59 Last Admin: 02/02/24 09:59 Dose: Not Given Levothyroxine Sodium (Levothyroxine 50 Mcg Tablet) 50 mcg PO DAILY@0630 [facility] Stop: 01/29/25 06:29 Last Admin: 02/02/24 05:42 Dose: 50 mcg Loperamide HCl (Loperamide 2 Mg Capsule) 2 mg PO Q2H PRN PRN Reason: Diarrhea Stop: 01/29/25 10:31 Last Admin: 02/01/24 13:28 Dose: 2 mg Nitroglycerin (Nitroglycerin 0.4 Mg Tab.Subl) 0.4 mg SUBLINGUAL Q5MIN.X3 PRN PRN Reason: Chest Pain Stop: 01/27/25 21:43 Nystatin (Nystatin 100,000 Unit/Gram Powder 15 Gm Bottle) 1 applic TOPICAL QID [facility] Stop: 01/29/25 08:59 Last Admin: 02/02/24 09:59 [...] lower leg: Plan: Patient was admitted to [facility] recently with septic shock from cellulitis. [...] signed by Lia Law MD> 02/02/24 1247 [facility] Work Phone: [phone] Progress note Author Valentin Valle [facility] February 01, 2024 2:37pm Note Date/Time February 01, 2024 2:3 7pm [facility] [address] [place] [address] Podiatry Progress Note Signed Patient: Adwoa Porter MR#: [id number] : 1955 Acct:[id number] Age/Sex: 68 / M Adm Date: 4 Loc: 4 Room: [id number] Type: ADM IN Attending Dr: Farhan Hudson [...] Plan: The culture that was taken at [facility] revealed normal skin cedric. Patient's white blood [...] podiatry standpoint okay to discharge back to [facility] with current wound care orders. Will [...] <Electronically signed by NELLY Valle> 02/01/24 1437 [facility] Work Phone: [phone] Progress note Author Farhan Hudson [facility] February 01, 2024 1:53pm Note Date/Time February 01, 2024 1:5 3pm [facility] [address] [place] [address] Hospitalist Progress Note Signed Patient: Adwoa Porter MR#: [id number] : 1955 Acct:[id number] Age/Sex: 68 / M Adm Date: 4 Loc: Room: [address] [place] [address] Type: ADM IN Attending Dr: Farhan Hudson [...] this will be a continued risk. His [id number] score is at minimum 5 and undoubtedly [...] <Electronically signed by Farhan Hudson DO> 02/01/24 4950 [facility] Work Phone: [phone] Progress note Author Lia Alychristine [facility] February 01, 2024 1:11pm Note Date/Time February 01, 2024 1:1 1pm [facility] [address] [place] [address] Nephrology Progress Note Signed Patient: Adwoa Porter MR#: [id number] : 1955 Acct:[id number] Age/Sex: 68 / M Adm Date: 4 Loc: Room: 1A5872-6 Type: ADM IN Attending Dr: Farhan Hudson DO Copies to: ~ Date of Service: 02/01/2024 Subjective Subjective Narrative: This is 68-year-old male patient with past medical history of systolic heart failure ejection fraction 10 to 15%, CKD stage III baseline creatinine around 1.5 mg deciliter last year, type 2 diabetes, hyperlipidemia, AICD in place, hypertension, COPD. Patient was admitted recently to [facility] for septic shock from cellulitis. Patient was stabilized and discharged to [facility] withamikacin and 2 other antibiotics. Lab at [facility] revealed SHIRA, hyperkalemia and hyponatremia and patient was sent to [facility]. Lab work this morning revealed potassium 5.3 [...] 81 Mg Tablet.) 81 mg PO DAILY [facility] Stop: 01/31/25 08:59 Last Admin: 02/01/24 08:44 Dose: 81 mg Atorvastatin Calcium (Atorvastatin 80 Mg Tablet) 80 mg PO DAILY [facility] Stop: 01/28/25 08:59 Last Admin: 02/01/24 08:45 Dose: 80 mg Budesonide/Formoterol Fumarate (Budesonide/Formoterol 160-4.5 Mcg 60 Puff/6 Gm Hfa.Aer.Ad) 2 puff INHALATION BID [facility] Stop: 01/31/25 08:59 Carvedilol (Carvedilol 12.5 Mg Tablet) 12.5 mg PO BID [facility] Stop: 01/28/25 08:59 Last Admin: 02/01/24 08:44 Dose: 12.5 mg Cyanocobalamin (Cyanocobalamin 1,000 Mcg Tablet) 1,000 mcg PO DAILY [facility] Stop: 01/31/25 08:59 Last Admin: 02/01/24 08:44 Dose: 1,000 mcg Gabapentin (Gabapentin 100 Mg Capsule) 200 mg PO TID PRN PRN Reason: nerve pain Stop: 01/30/25 21:59 Last Admin: 02/01/24 11:14 Dose: 200 mg Heparin Sodium (Porcine) (Heparin 5,000 Unit/Ml Vial) 5,000 unit SUBCUT Q8HR [facility] Stop: 01/27/25 21:59 Last Admin: 02/01/24 05:58 Dose: Not Given Heparin Sodium (Porcine) (Heparin-Lock 500 Unit/5 Ml Syringe) 500 unit IV-PUSH QSHIFT [facility] Stop: 01/30/25 21:59 Last Admin: 02/01/24 05:59 Dose: Not Given Heparin Sodium (Porcine) (Heparin 10,000 Unit/10 Ml Vial) 3,800 unit IV PRN PRN PRN Reason: Dialysis Stop: 01/28/25 14:06 Last Admin: 01/31/24 16:49 Dose: 3,800 unit Hydralazine HCl (Hydralazine 50 Mg Tablet) 50 mg PO TID [facility] Stop: 01/27/25 21:59 Last Admin: 02/01/24 08:44 Dose: 50 mg Linezolid (Zyvox) 600 mg in 300 mls @ 300 mls/hr IV Q12H [facility] Last Admin: 02/01/24 11:10 Dose: 300 mls/hr [...] 100 mls @ 200 mls/hr IV Q24H [facility] Stop: 01/30/25 09:59 Last Admin: 02/01/24 10:35 Dose: 200 mls/hr Insulin Aspart (Insulin Aspart 300 Units/3 Ml Insuln.Pen) 0 units SUBCUT TID.[facility]; Protocol Stop: 01/27/25 22:44 Last Admin: 02/01/24 11:44 Dose: 4 units Isosorbide Dinitrate (Isosorbide Dinitrate 20 Mg Tablet) 20 mg PO BID [facility] Stop: 01/28/25 08:59 Last Admin: 02/01/24 08:44 Dose: 20 mg Levothyroxine Sodium (Levothyroxine 50 Mcg Tablet) 50 mcg PO DAILY@0630 [facility] Stop: 01/29/25 06:29 Last Admin: 02/01/24 06:03 Dose: 50 mcg Loperamide HCl (Loperamide 2 Mg Capsule) 2 mg PO Q2H PRN PRN Reason: Diarrhea Stop: 01/29/25 10:31 Last Admin: 02/01/24 09:08 Dose: 2 mg Nitroglycerin (Nitroglycerin 0.4 Mg Tab.Subl) 0.4 mg SUBLINGUAL Q5MIN.X3 PRN PRN Reason: Chest Pain Stop: 01/27/25 21:43 Nystatin (Nystatin 100,000 Unit/Gram Powder 15 Gm Bottle) 1 applic TOPICAL QID [facility] Stop: 01/29/25 08:59 Last Admin: 02/01/24 09:08 [...] lower leg: Plan: Patient was admitted to [facility] recently with septic shock from cellulitis. [...] <Electronically signed by Lia Law MD> 02/01/24 1310 [facility] Work Phone: [phone]) [phone] Progress note Author Farhan Schofield [facility] February 01, 2024 12:41pm Note Date/Time February 01, 2024 12: 41pm [facility] [address] [place] [address] Infect. Disease Progress Note Signed Patient: Adwoa Porter MR#: [id number] : 1955 Acct:[id number] Age/Sex: 68 / M Adm Date: 4 Loc: Room: [address] [place] [address] Type: ADM IN Attending Dr: Farhan Hudson [...] 50 Mg Tablet) 50 mg PO TID [facility] Stop: 01/27/25 21:59 Last Admin: 02/01/24 08:44 Dose: 50 mg Linezolid (Zyvox) 600 mg in 300 mls @ 300 mls/hr IV Q12H [facility] Last Admin: 02/01/24 11:10 Dose: 300 mls/hr [...] 100 mls @ 200 mls/hr IV Q24H [facility] Stop: 01/30/25 09:59 Last Admin: 02/01/24 10:35 Dose: 200 mls/hr Insulin Aspart (Insulin Aspart 300 Units/3 Ml Insuln.Pen) 0 units SUBCUT TID.[facility]; Protocol Stop: 01/27/25 22:44 Last Admin: 02/01/24 11:44 Dose: 4 units Isosorbide Dinitrate (Isosorbide Dinitrate 20 Mg Tablet) 20 mg PO BID [facility] Stop: 01/28/25 08:59 Last Admin: 02/01/24 08:44 Dose: 20 mg Levothyroxine Sodium (Levothyroxine 50 Mcg Tablet) 50 mcg PO DAILY@0630 [facility] Stop: 01/29/25 06:29 Last Admin: 02/01/24 06:03 Dose: 50 mcg Loperamide HCl (Loperamide 2 Mg Capsule) 2 mg PO Q2H PRN PRN Reason: Diarrhea Stop: 01/29/25 10:31 Last Admin: 02/01/24 09:08 Dose: 2 mg Nitroglycerin (Nitroglycerin 0.4 Mg Tab.Subl) 0.4 mg SUBLINGUAL Q5MIN.X3 PRN PRN Reason: Chest Pain Stop: 01/27/25 21:43 Nystatin (Nystatin 100,000 Unit/Gram Powder 15 Gm Bottle) 1 applic TOPICAL QID [facility] Stop: 01/29/25 08:59 Last Admin: 02/01/24 09:08 [...] skin cedric only. Cultures were obtained from [place]. Antibiotics adjusted tolinezolid and ertapenem. Admission leukocytosis has improved. Today down to 11.4. Vascular continues to follow patient. No foot surgery planned for while he is here at this time he will follow-up with Dr. Arroyo upon discharge Documented By: Farhan Schofield MD 02/01/24 1237 Signed By: <Electronically signed by MD Farhan Schofield> 02/01/[address] [facility] Work Phone: 1([phone]) [phone] Progress note Author Selin George [facility] February 01, 2024 11:33am Note Date/Time February 01, 2024 8:4 6am [facility] [address] [place] [address] Vascular Surgery Progress Note Signed Patient: Adwoa Porter MR#: [id number] : 1955 Acct:[id number] Age/Sex: 68 / M Adm Date: 4 Loc: Room: [address] [place] [address] Type: ADM IN Attending Dr: Farhan Hudson [...] MPV Neut % (Auto) Lymph % (Auto) [place] % (Auto) Eos % (Auto) Baso % (Auto) Nucleat RBC Rel Count Neut # (Auto) Lymph # (Auto) [place] # (Auto) Eos # (Auto) Baso # (Auto) PT INR APTT PHA Creatinine Clear Sodium Potassium Chloride Carbon Dioxide Anion Gap BUN Creatinine Est GFR (CKD-EPI) Glucose POC Glucose 191 116 Calcium HCV RNA (PCR) IU/mL N/A HCV RNA PCR microscopist log10 N/A 02/01/24 02/01/24 06:00 08:04 Corrected WBC 11.4 H Uncorrected WBC Count 11.4 H RBC 3.24 L Hgb 8.7 L Hct 25.7 L MCV 79.4 L MCH 26.8 L MCHC 33.8 RDW 17.2 H Plt Count 285 MPV 7.3 Neut % (Auto) 82.0 Lymph % (Auto) 10.2 [place] % (Auto) 4.9 Eos % (Auto) 2.0 Baso % (Auto) 0.9 Nucleat RBC Rel Count 0.0 Neut # (Auto) 9.4 H Lymph # (Auto) 1.2 [place] # (Auto) 0.6 Eos # (Auto) 0.2 Baso # (Auto) 0.1 PT 21.5 H INR 1.9 APTT 36.7 H PHA Creatinine Clear 26.53 Sodium 133 L Potassium 4.1 Chloride 96 L Carbon Dioxide 27.5 Anion Gap 13.6 BUN 35 H Creatinine 2.98 H Est GFR (CKD-EPI) 21.976 Glucose 169 H POC Glucose 202 Calcium 7.0 L HCV RNA (PCR) IU/mL HCV RNA PCR microscopist log10 Microbiology Microbiology: Microbiology - Results from [...] addressed. Consent was obtained today. Documented By: Ralu Bravo MD 02/01/24 0838 Signed By: <Electronically signed by Raul Bravo MD> 02/01/24 0959 <Electronically signed by CHARISSE George> 02/01/24 1133 [facility] Work Phone: [phone] Progress note Author Farhan Hudson [facility] January 31, 2024 9:28pm Note Date/Time January 31, 2024 9:2 8pm [facility] [address] [place] [address] Hospitalist Progress Note Signed Patient: Adwoa Porter MR#: [id number] : 1955 Acct:[id number] Age/Sex: 68 / M Adm Date: 4 Loc: 4 Room: [address] [place] [address] Type: ADM IN Attending Dr: Farhan Hudson [...] Insuln.Pen SUBCUT 01/27/25 22:44 Not Given TID.WM.HS [facility] Protocol Isosorbide Dinitrate 20 mg 01/29/24 09:00 [...] <Electronically signed by Farhan Hudson DO> 01/31/242127 [facility] Work Phone: [phone]) [phone] Progress note Author Farhan Hudson [facility] January 31, 2024 2:00pm Note Date/Time January 30, 2024 8:3 2pm [facility] [address] [place] [address] Hospitalist Progress Note Signed Patient: Adwoa Porter MR#: [id number] : 1955 Acct:[id number] Age/Sex: 68 / M Adm Date: 4 Loc: Room: [address] [place] [address] Type: ADM IN Attending Dr: Farhan Hudson [...] signed by Farhan Hudson DO> 01/31/24 1400 [facility] Work Phone: [phone] [facility]24 Progress note Author Farhan Schofield [facility] January 31, 2024 9:24am Note Date/Time January 31, 2024 9:1 0am [facility] [address] [place] [address] Infect. Disease Progress Note Signed Patient: Adwoa Porter MR#: [id number] : 1955 Acct:[id number] Age/Sex: 68 / M Adm Date: 4 Loc: 4P Room: 2Y0996-4 Type: ADM IN Attending Dr: Farhan Hudson [...] 50 Mg Tablet) 50 mg PO TID [facility] Stop: 01/27/25 21:59 Last Admin: 01/31/24 03:12 Dose: Not Given Ceftriaxone Sodium (Rocephin) 1 gm in 50 mls @ 100 mls/hr IV Q24H [facility] Last Admin: 01/30/24 20:37 Dose: 100 mls/hr Linezolid (Zyvox) 600 mg in 300 mls @ 300 mls/hr IV Q12H [facility] Last Admin: 01/30/24 21:37 Dose: 300 mls/hr [...] Units/3 Ml Insuln.Pen) 0 units SUBCUT TID.WM.[facility]; Protocol Stop: 01/27/25 22:44 Last Admin: 01/31/24 08:51 Dose: Not Given Isosorbide Dinitrate (Isosorbide Dinitrate 20 Mg Tablet) 20 mg PO BID [facility] Stop: 01/28/25 08:59 Last Admin: 01/30/24 20:37 Dose: 20 mg Levothyroxine Sodium (Levothyroxine 50 Mcg Tablet) 50 mcg PO DAILY@0630 [facility] Stop: 01/29/25 06:29 Last Admin: 01/31/24 06:39 Dose: 50 mcg Loperamide HCl (Loperamide 2 Mg Capsule) 2 mg PO Q2H PRN PRN Reason: Diarrhea Stop: 01/29/25 10:31 Last Admin: 01/30/24 20:37 Dose: 2 mg Nitroglycerin (Nitroglycerin 0.4 Mg Tab.Subl) 0.4 mg SUBLINGUAL Q5MIN.X3 PRN PRN Reason: Chest Pain Stop: 01/27/25 21:43 Nystatin (Nystatin 100,000 Unit/Gram Powder 15 Gm Bottle) 1 applic TOPICAL QID [facility] Stop: 01/29/25 08:59 Last Admin: 01/30/24 20:55 [...] dressing changes. Based on culture results from [place] though faxed copy difficult to see given blacked out names of organisms. ? 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 Change ceftriaxone to invanz; maintain linezolid. Documented By: Farhan Schofield MD 01/31/2407 Signed By: <Electronically signed by MD Farhan Schofield> 01/31/24923 [facility] Work Phone: 1(229) 391-720303-14-2024 Progress note Author Valentin Valle [facility] January 31, 2024 9:18am Note Date/Time January 31, 2024 9:1 6am [facility] [address] [place] [address] Podiatry Progress Note Signed Patient: Adwoa Porter MR#: [id number] : 1955 Acct:[id number] Age/Sex: 68 / M Adm Date: 4 Loc: Room: [address] [place] [address] Type: ADM IN Attending Dr: Farhan Hudson [...] [facility] Dr[facility] [...] <Electronically signed by NELLY Valle> 01/31/24 0918 [facility] Work Phone: [phone] Consult note Author Raul Bravo [facility] January 31, 2024 8:34am Note Date/Time January 30, 2024 9:1 9am [facility] [address] [place] [address] Vascular Surgery Consult Note Signed Patient: Adwoa Porter MR#: [id number] : 1955 Acct:[id number] Age/Sex: 68 / M Adm Date: 4 Loc: Room: [address] [place] [address] Type: ADM IN Attending Dr: Farhan Hudson [...] for tunneled hemodialysis catheter. 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 [facility] Medical History (Updated 01/29/24 @ [...] MPV Neut % (Auto) Lymph % (Auto) [place] % (Auto) Eos % (Auto) Baso % (Auto) Nucleat RBC Rel Count Neut # (Auto) Lymph # (Auto) [place] # (Auto) Eos # (Auto) Baso # (Auto) PHA Creatinine Clear Sodium Potassium Chloride Carbon Dioxide Anion Gap BUN Creatinine Est GFR (CKD-EPI) Glucose POC Glucose 236 Calcium Urine Color Dark yellow A Urine Appearance Cloudy A Urine pH 5.0 Ur Specific [place] 1.019 Urine Protein 100 H Urine Glucose [...] % (Auto) 83.7 Lymph % (Auto) 9.8 [place] % (Auto) 3.8 Eos % (Auto) 1.7 Baso % (Auto) 1.0 Nucleat RBC Rel Count 0.0 Neut # (Auto) 11.3 H Lymph # (Auto) 1.3 [place] # (Auto) 0.5 Eos # (Auto) 0.2 Baso # (Auto) 0.1 PHA Creatinine Clear 17.22 Sodium 128 L Potassium 4.2 D Chloride 95 L Carbon Dioxide 21.9 Anion Gap 15.3 H BUN 73 H D Creatinine 4.57 H D Est GFR (CKD-EPI) 13.156 Glucose 144 H POC Glucose 256 170 Calcium 7.1 L Urine Color Urine Appearance Urine pH Ur Specific [place] Urine Protein Urine Glucose (UA) Urine Ketones [...] <Electronically signed by CHARISSE George> 01/31/24 0737 [facility] Work Phone: [phone]) [phone] Progress note Author Lia Law [facility] January 30, 2024 2:30pm Note Date/Time January 30, 2024 2:3 0pm [facility] [address] [place] [address] Nephrology Progress Note Signed Patient: Adwoa Porter MR#: [id number] : 1955 Acct:[id number] Age/Sex: 68 / M Adm Date: 4 Loc: 4 Room: 8Z8245-6 Type: ADM IN Attending Dr: Farhan Hudson DO Copies to: ~ Date of Service: 01/30/2024 Subjective Subjective Narrative: This is 68-year-old male patient with past medical history of systolic heart failure ejection fraction 10 to 15%, CKD stage III baseline creatinine around 1.5 mg deciliter last year, type 2 diabetes, hyperlipidemia, AICD in place, hypertension, COPD. Patient was admitted recently to [facility] for septic shock from cellulitis. Patient was stabilized and discharged to [facility] withamikacin and 2 other antibiotics. Lab at [facility] revealed SHIRA, hyperkalemia and hyponatremia and patient was sent to [facility]. Lab work this morning revealed potassium 5.3 [...] 80 Mg Tablet) 80 mg PO DAILY [facility] Stop: 01/28/25 08:59 Last Admin: 01/30/24 09:02 Dose: 80 mg Carvedilol (Carvedilol 12.5 Mg Tablet) 12.5 mg PO BID [facility] Stop: 01/28/25 08:59 Last Admin: 01/30/24 09:02 Dose: 12.5 mg Heparin Sodium (Porcine) (Heparin 5,000 Unit/Ml Vial) 5,000 unit SUBCUT Q8HR [facility] Stop: 01/27/25 21:59 Last Admin: 01/30/24 07:31 Dose: Not Given Heparin Sodium (Porcine) (Heparin 10,000 Unit/10 Ml Vial) 2,600 unit IV PRN PRN PRN Reason: Dialysis Stop: 01/28/25 14:06 Last Admin: 01/29/24 15:13 Dose: 2,600 unit Hydralazine HCl (Hydralazine 50 Mg Tablet) 50 mg PO TID [facility] Stop: 01/27/25 21:59 Last Admin: 01/30/24 09:02 Dose: 50 mg Ceftriaxone Sodium (Rocephin) 1 gm in 50 mls @ 100 mls/hr IV Q24H [facility] Last Admin: 01/29/24 21:13 Dose: 100 mls/hr Linezolid (Zyvox) 600 mg in 300 mls @ 300 mls/hr IV Q12H [facility] Last Admin: 01/30/24 10:50 Dose: 300 mls/hr [...] 300 Units/3 Ml Insuln.Pen) 0 units SUBCUT TID..[facility]; Protocol Stop: 01/27/25 22:44 Last Admin: 01/30/24 12:52 Dose: 8 units Isosorbide Dinitrate (Isosorbide Dinitrate 20 Mg Tablet) 20 mg PO BID [facility] Stop: 01/28/25 08:59 Last Admin: 01/30/24 09:02 Dose: 20 mg Levothyroxine Sodium (Levothyroxine 50 Mcg Tablet) 50 mcg PO DAILY@0630 [facility] Stop: 01/29/25 06:29 Last Admin: 01/30/24 07:31 Dose: 50 mcg Loperamide HCl (Loperamide 2 Mg Capsule) 2 mg PO Q2H PRN PRN Reason: Diarrhea Stop: 01/29/25 10:31 Last Admin: 01/30/24 12:52 Dose: 2 mg Nitroglycerin (Nitroglycerin 0.4 Mg Tab.Subl) 0.4 mg SUBLINGUAL Q5MIN.X3 PRN PRN Reason: Chest Pain Stop: 01/27/25 21:43 Nystatin (Nystatin 100,000 Unit/Gram Powder 15 Gm Bottle) 1 applic TOPICAL QID [facility] Stop: 01/29/25 08:59 Last Admin: 01/30/24 09:03 [...] Cloudy A Urine pH 5.0 Ur Specific [place] 1.019 Urine Protein 100 H Urine Glucose [...] lower leg: Plan: Patient was admitted to [facility] recently with septic shock from cellulitis. [...] signed by Lia Law MD> 01/30/24 1430 [facility] Work Phone: 1([phone]) 900-781903-13-2024 Progress note Author Valentin Valle [facility] January 30, 2024 11:44am Note Date/Time January 30, 2024 11: 44am [facility] [address] [place] [address] Podiatry Progress Note Signed Patient: Adwoa Porter MR#: [id number] : 1955 Acct:[id number] Age/Sex: 68 / M Adm Date: 4 Loc: Room: [address] [place] [address] Type: ADM IN Attending Dr: Farhan Hudson [...] <Electronically signed by NELLY Valle> 01/30/24 1144 [facility] Work Phone: [phone] 511-159803-13-2024 Progress note Author Farhan Schofield [facility] January 30, 2024 11:06am Note Date/Time January 30, 2024 11: 06am [facility] [address] [place] [address] Infect. Disease Progress Note Signed Patient: Adwoa Porter MR#: [id number] : 1955 Acct:[id number] Age/Sex: 68 / M Adm Date: 4 Loc: Room: [address] [place] [address] Type: ADM IN Attending Dr: Farhan Hudson [...] 5,000 Unit/Ml Vial) 5,000 unit SUBCUT Q8HR [facility] Stop: 01/27/25 21:59 Last Admin: 01/30/24 07:31 Dose: Not Given Heparin Sodium (Porcine) (Heparin 10,000 Unit/10 Ml Vial) 2,600 unit IV PRN PRN PRN Reason: Dialysis Stop: 01/28/25 14:06 Last Admin: 01/29/24 15:13 Dose: 2,600 unit Hydralazine HCl (Hydralazine 50 Mg Tablet) 50 mg PO TID [facility] Stop: 01/27/25 21:59 Last Admin: 01/30/24 09:02 Dose: 50 mg Ceftriaxone Sodium (Rocephin) 1 gm in 50 mls @ 100 mls/hr IV Q24H [facility] Last Admin: 01/29/24 21:13 Dose: 100 mls/hr Linezolid (Zyvox) 600 mg in 300 mls @ 300 mls/hr IV Q12H [facility] Last Admin: 01/30/24 10:50 Dose: 300 mls/hr [...] Units/3 Ml Insuln.Pen) 0 units SUBCUT TID.WM.HS [facility]; Protocol Stop: 01/27/25 22:44 Last Admin: 01/30/24 09:02 Dose: 3 units Isosorbide Dinitrate (Isosorbide Dinitrate 20 Mg Tablet) 20 mg PO BID [facility] Stop: 01/28/25 08:59 Last Admin: 01/30/24 09:02 Dose: 20 mg Levothyroxine Sodium (Levothyroxine 50 Mcg Tablet) 50 mcg PO DAILY@0630 [facility] Stop: 01/29/25 06:29 Last Admin: 01/30/24 07:31 [...] <Electronically signed by MD Farhan Schofield> 01/30/[address] [facility] Work Phone: 1(107) 201-896803-13-2024 Progress note Author Farhan Hudson [facility] January 29, 2024 11:06pm Note Date/Time January 29, 2024 11: 06pm [facility] [address] [place] [address] Hospitalist Progress Note Signed Patient: Adwoa Porter MR#: [id number] : 1955 Acct:[id number] Age/Sex: 68 / M Adm Date: 4 Loc: Room: [address] [place] [address] Type: ADM IN Attending Dr: Farhan Hudson [...] <Electronically signed by Farhan Hudson DO> 01/29/24 [address] [facility] Work Phone: 1(275) 485-117603-12-2024 Consult note Author Valentin Valle [facility] January 29, 2024 7:19pm Note Date/Time January 29, 2024 6:1 0pm [facility] [address] [place] [address] Podiatry Consult Note Signed with Addenda Patient: Adwoa Porter MR#: [id number] : 1955 Acct:[id number] Age/Sex: 68 / M Adm Date: 4 Loc: Room: [address] [place] [address] Type: ADM IN Attending Dr: Farhan Hudson [...] in bed. Patient was transferred here from [facility] due to severe kidney diseaserequiring hemodialysis. Patient currently denies any history of nausea, vomiting, fever or chills. Patient was recently hospitalized for septic shock apparently 2 weeks ago at [facility]. Patient was seen by Dr. Farmer his fellows there for an abscess foot. They had done a wide I&D done to treat the abscess to foot. Patient was then sent to [facility] with orders for a wound VAC. Patient was seen by Dr. Arroyo about 2 weeks ago and was told that everything looked good. Patient again was sent to [facility] for his kidney disease and upon evaluation [...] Skin/Breast: Reports skin ulcer and Reports wounds [facility] Medical History (Updated 01/29/24 @ [...] tried to speak with Dr. Arroyo the residential construction instructor who did the an I&D of the left foot however he was out of town at a conference. I did speak with his fellow that he is training, Dr. Herminio Souza ([phone]). Dr. Souza mentioned that they had to do an emergent I&D due to an abscess on the left foot. This happened on 01/17/2024. Patient was then discharged to [facility] with orders to begin for a wound VAC. Patient was placed on multiple antibiotic therapy ultimately he then was placed on amikacin. Due to abnormal lab work patient was sent to [facility] and then was transferred to [facility] for hemodialysis and kidney disease. Dr. [...] gangrene. Documented By: Valentin Valle DPM 01/29/24 1740 Signed By: <Electronically signed by NELLY Valle> 01/29/[address] [facility] Work Phone: 1(881) 149-708303-12-2024 Consult note Author Lia Law [facility] January 29, 2024 3:28pm Note Date/Time January 29, 2024 9:5 7am [facility] [address] [place] [address] Nephrology Consult Note Signed Patient: Adwoa Porter MR#: [id number] : 1955 Acct:[id number] Age/Sex: 68 / M Adm Date: 4 Loc: Room: [address] [place] [address] Type: ADM IN Attending Dr: Farhan Hudson [...] hypertension, COPD. Patient was admitted recently to [facility] for septic shock from cellulitis. Patient was stabilized and discharged to [facility] withamikacin and 2 other antibiotics. Lab at [facility] revealed SHIRA, hyperkalemia and hyponatremia and patient was sent to [facility]. Lab work this morning revealed potassium 5.3 [...] systems: 12 system review is negative today [facility] Medical History (Updated 01/29/24 @ [...] 50 mls @ 100 mls/hr IV Q24H [facility] Last Admin: 01/28/24 22:57 Dose: 100 mls/hr Linezolid (Zyvox) 600 mg in 300 mls @ 300 mls/hr IV Q12H [facility] Last Admin: 01/28/24 23:39 Dose: 300 mls/hr Sodium Chloride (0.9% Sodium Chloride 1,000 Ml) 1,000 mls @ 100 mls/hr IV .[id number] Stop: 01/27/25 21:44 Last Admin: 01/28/24 23:37 Dose: 100 mls/hr Insulin Aspart (Insulin Aspart 300 Units/3 Ml Insuln.Pen) 0 units SUBCUT TID.WM.MID [facility]; Protocol Stop: 01/27/25 22:44 Last Admin: 01/29/24 09:04 Dose: 4 units Isosorbide Dinitrate (Isosorbide Dinitrate 20 Mg Tablet) 20 mg PO BID [facility] Stop: 01/28/25 08:59 Last Admin: 01/29/24 09:03 [...] lower leg: Plan: Patient was admitted to [facility] recently with septic shock from cellulitis. [...] 01/29/24 0957 Signed By: <Electronically signed by iLa Law MD> 01/29/24 [facility] [facility] Work Phone: 1(818) 239-138803-12-2024 [facility] Consult note Author Ching Loyola [facility] January 29, 2024 10:05am Note Date/Time January 29, 2024 9:4 5am [facility] [address] [place] [address] Infect. Disease Consult Note Signed Patient: Adwoa Porter MR#: [id number] : 1955 Acct:[id number] Age/Sex: 68 / M Adm Date: 4 Loc: Room: [address] [place] [address] Type: ADM IN Attending Dr: Farhan Hudson DO Copies to: Ching Loyola DO, RES DO Farhan Munoz MD Thomas R Conley, DO~ HPI Data of Consult Consult date: 01/29/24 Requesting Physician: Farhan Hudson DO Primary Care Provider: Vinnie Stewart DO Consult Narrative Reason for consult: Cellulitis History of present illness: Mr. Porter is a 68 year old male who was recently discharged from [facility] on January 22 to skilled care facility after treatment for septic shock secondary to cellulitis. He was discharged on amikacin and ceftriazone for polymicrobial growth and confirmed bone culture and was placed on a wound VAC. He was [facility] ED at [place] [facility] after he had abnormal [...] Skin/Breast: Reports skin ulcer and Reports wounds [facility] Medical History (Updated 01/08/24 @ [...] 80 Mg Tablet) 80 mg PO DAILY [facility] Stop: 01/28/25 08:59 Last Admin: 01/29/24 09:03 Dose: 80 mg Carvedilol (Carvedilol 12.5 Mg Tablet) 12.5 mg PO BID [facility] Stop: 01/28/25 08:59 Last Admin: 01/29/24 09:03 Dose: 12.5 mg Heparin Sodium (Porcine) (Heparin 5,000 Unit/Ml Vial) 5,000 unit SUBCUT Q8HR [facility] Stop: 01/27/25 21:59 Last Admin: 01/29/24 06:36 Dose: Not Given Hydralazine HCl (Hydralazine 50 Mg Tablet) 50 mg PO TID [facility] Stop: 01/27/25 21:59 Last Admin: 01/29/24 09:03 Dose: 50 mg Ceftriaxone Sodium (Rocephin) 1 gm in 50 mls @ 100 mls/hr IV Q24H [facility] Last Admin: 01/28/24 22:57 Dose: 100 mls/hr Linezolid (Zyvox) 600 mg in 300 mls @ 300 mls/hr IV Q12H [facility] Last Admin: 01/28/24 23:39 Dose: 300 mls/hr Sodium Chloride (0.9% Sodium Chloride 1,000 Ml) 1,000 mls @ 100 mls/hr IV .[id number] Stop: 01/27/25 21:44 Last Admin: 01/28/24 23:37 Dose: 100 mls/hr Insulin Aspart (Insulin Aspart 300 Units/3 Ml Insuln.Pen) 0 units SUBCUT TID..[facility]; Protocol Stop: 01/27/25 22:44 Last Admin: 01/29/24 09:04 Dose: 4 units Isosorbide Dinitrate (Isosorbide Dinitrate 20 Mg Tablet) 20 mg PO BID [facility] Stop: 01/28/25 08:59 Last Admin: 01/29/24 09:03 [...] osteomyelitis based on bone culture when at [place]. It is likely that his acute on chronic kidney injury is stemming from his recent antibiotic use specifically likely the amikacin. Cultures when they were taken were done at [place] so I do not have these results at this time. I cannot exactly be sure specifically why amikacin was chosen but fingering due to resistance it was one of the few options available. Will reach out to [place] to get sensitivities faxed up to us. [...] signed by MD Farhan Schofield> 01/29/24 [facility] [facility] Work Phone: [phone]) 380-758403-11-2024 History and physical note Author Farhan Hudson [facility] January 28, 2024 9:17pm Note Date/Time January 28, 2024 8:3 0pm [facility] [address] [place] [address] Hospitalist H&P Signed Patient: Adwoa Porter MR#: [id number] : 1955 Acct:[id number] Age/Sex: 68 / M Adm Date: 4 Loc: Room: [address] [place] [address] Type: ADM IN Attending Dr: Farhan Hudson DO Copies to: DO Vinnie Munoz DO~ HPI DATE OF EXAMINATION: 01/28/24 CHIEF COMPLAINT: Abnormal labs HISTORY OF PRESENT ILLNESS: This patient is a 68-year-old male with a history of multiple medical comorbidities including systolic heart failure reported ejection fraction 10 to 15% and CKD stage III. He was recently hospitalized at [place] and discharged January 22 to a skilled care facility after being treated for septic shock secondary to a cellulitis. He was discharged on IV antibiotic therapy includingamikacin for polymicrobial growth with a wound VAC and PICC line. He was sent to the emergency department today at [place] for abnormal labs notably worsening kidney function. [...] possibly effusion. He was subsequently transferred to [facility] for nephrology consultation and further workup [...] wound cultures need to be obtained from [place] and I will consult infectious disease given [...] negative unless noted below or in HPI [facility] Medical History (Updated 01/08/24 @ [...] <Electronically signed by Farhan Hudson DO> 01/28/24 [facility] Work Phone: 1([phone]) 320-349103-08-2024 NoteCoronary artery disease is stable with out Concerning symptoms Continue GDMT continue risk factor modifications- heart healthy diet, regular exercise as tolerated and continue all medications.[facility] 01-25-2024 NoteNYHC II-III currently he appears [...] electrolytes- please maintain K+>4 and Mg > 2Un[facility] 01-25-2024 NoteUTP CARDIOLOGY PROGRESS NOTE HPI: Adwoa Porter is a 68 y.o. male here for hospital F/U- [facility] HPI Pt presents today for hospital f/U after recent admit to [facility]. Known PMH HFrEF, CAD, a fib, LV thrombus, severe TV regurg. Denied chest pain, SOB, orthopnea, palpitations. States overall he is feeling well and only complaint is the antibiotic shot. He currently is living at a SNF after DC from hospital, receiving IV antibiotics via PICC line. Admit 01/15/24-01/23/24 Pt was admitted to [facility] for Sepsis- non healing DFU, Acute resp [...] with known h/o coronary artery disease with FIRMWARE MANAGER of the RCA and mild to moderate [...] with lunch, and with evening meal. HYDROcodone-acetaminophen ([place]) 5-325 mg tablet Take 1 tablet by [...] movements intact. Conjunctiva/sclera: Conj (more content not included)...[facility]03-08-2024 NotePatient here for follow up [facility]. Bumex was stopped by Dr. Fournier upon discharge. Denies chest pain, SOB, palpitations lightheadedness/syncope, and bleeding on warfarin. Review of Systems Cardiovascular: Positive for leg swelling. Skin: Positive for poor wound healing. Musculoskeletal: Positive for muscle weakness. All other systems reviewed and are negative.[facility] 12-20-2023 Evaluation note* Encounter Date Diagnosis Assessment Notes Treatment Notes Treatment Clinical Notes Dec, Facet arthritis of lumbar region (ICD-10 - M46.96) [facility] Other 01-29-2024 Evaluation note* Encounter Date Diagnosis Assessment Notes Treatment Notes Treatment Clinical Notes Nov, Increased urinary frequency (ICD-10 - R35.0) [facility] Other 01-22-2024 Evaluation note* Encounter Date Diagnosis [...] a burger and a few fries from [employer] before he came here. He said that [...] making changes by Shaw Rondon RN, [facility]. 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 failure w/hypoxia, acute on systolic chronic HF Medical History [facility]- r ight great toe bleeding (not stopping) Medical History pneumonia-[facility] 06-05 Medical History [facility]-7-2023 Medical History [id number]-[id number] Medical History NON RESPONSIVE X 2 IN THE LAST 6 WEEKS Surgical History Cardiac catherization (07/2010) Surgical History AICD insertion (11/2010) Surgical History right sided heart cath - [facility] 10/2013 Surgical History appendectomy Surgical History rt [...] Hospitalization History rt. heart cath Rex Stout- [facility] 05/11/16 Hospitalization History Water retention/ [facility] 02/2017 Hospitalization History Observation-[facility] 11/2017 Hospitalization History INFECTION IN LEFT SMALL TOE AND FOOT 11/2018 Hospitalization History [facility] -- ICU -- COPD, SMAL L WOUND ON LEFT FOOT 12/2019 Hospitalization History COPD [facility] [place] 12/2019 Hospitalization History Ankle wound 01/2020 Hospitalization History COVID 11/2020 Hospitalization History A-FIB, CHF, KIDNEY ISSUE S 03/2021 Hospitalization History [facility] 01/2023 Hospitalization History [facility] discha rged 03-27-2023 Hospitalization History [facility] x2 7-2 023 Hospitalization History [facility] 10- 023 Hospitalization History [facility] rib fx left Hospitalization History [facility] -pnemo jennifer [facility] Other 01-08-2024 NotePatient here for 2 mo follow up CHF, permanent afib, and CAD. He was admitted to [facility] last month for sepsis and pneumonia. He denies chest pain, SOB, and bleeding on warfarin. Doing well s/p hospital admission. Had follow up labs on 11/09/2023. Review of Systems Cardiovascular: Positive for leg swelling (L > R). Musculoskeletal: Positive for muscle weakness. All other systems reviewed and are negative.[facility] 11-26-2023 NoteUTP CARDIOLOGY PROGRESS NOTE HPI: Adwoa Porter is a 68 y.o. male here for HFrEF, CAD, a fib, LV thrombus, severe TV regurg. HPI 68 yo male with known h/o coronary artery disease with FIRMWARE MANAGER of the RCA and mild to moderate [...] afib, and CAD. He was admitted to [facility] last month for sepsis and pneumonia. He [...] is significant for coronary artery disease with FIRMWARE MANAGER of the RCA and mild to moderate [...] October 2020. He was recently admitted to [facility] in August 2023 with acute respiratory [...] breath at rest. He recovered at the custodial facility but he is now back home. [...] with lunch, and with evening meal. HYDROcodone-acetaminophen ([place]) 5-325 mg tablet Take 1 tablet by [...] crush or chew. lucy (more content not included)...[facility] 11-26-2023 NoteRemains on warfarin Denied any bleeding tendencies voicedUniversThe [facility] 11-26-2023 NoteMonitor with routine echoUnMemorial Hospital 11-26-2023 NoteDevice interrogation q 6 monthsUnMemorial Hospital01-08-2024 NoteContinue coreg AICD in placeUnMemorial Hospital01-08-2024 NoteRemains on statin [facility]01-08-2024 NoteHypertension is well controlled 113/71 Remains on Coreg, hydralazine, isordil, aldacotonUnMemorial Hospital01-08-2024 NoteNYHC IIIc- currently euvolemic without exacerbation Continue GDMT- ASA, lipitor, coreg, farxiga, digoxin, hydralazine, isordil, aldactone Diuretic therapy- bumex and metolazone= f/U with nephrology Monitor daily weights, I&O, fluid restriction 1.5-2L/day, renal function and electrolytes-[facility]01-08-2024 NoteRemains on GDMT [facility]01-08-2024 [id number]= 5- HTN, CHF, CAD, DM remainds on warfarin anticoagulation, DIgoxin and COregUnMemorial Hospital01-08-2024 NoteCoronary artery disease is stable Continue GDMT- ASA, lipitor, coreg continue risk factor modifications- heart healthy diet, regular exercise as tolerated and continue all medications.[facility] 11-22-2023 Evaluation note* Encounter Date Diagnosis [...] arthritis of lumbar region (ICD-10 - M46.96) [facility] Other 01-03-2024 Evaluation note* Encounter Date Diagnosis Assessment Notes Treatment Notes Treatment Clinical Notes Nov, Facet arthritis of lumbar region (ICD-10 - M46.96) [facility] Other 12-28-2023 Evaluation note* Encounter Date Diagnosis [...] continue follow-up with hematology as needed basis. 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 failure w/hypoxia, acute on systolic chronic HF Medical History [facility]- r ight great toe bleeding (not stopping) Medical History pneumonia-[facility] 06-05 Medical History [facility]-7-2023 Medical History [id number]-[facility] Surgical History Cardiac catherization (07/2010) Surgical [...] Hospitalization History rt. heart cath Rex Stout- [facility] 05/11/16 Hospitalization History Water retention/ [facility] 02/2017 Hospitalization History Observation-[facility] 11/2017 Hospitalization History INFECTION IN LEFT SMALL TOE AND FOOT 11/2018 Hospitalization History [facility] -- ICU -- COPD, SMAL L WOUND ON LEFT FOOT 12/2019 Hospitalization History COPD [facility] [place] 12/2019 Hospitalization History Ankle wound 01/2020 Hospitalization History COVID 11/2020 Hospitalization History A-FIB, CHF, KIDNEY ISSUE S 03/2021 Hospitalization History [facility] 01/2023 Hospitalization History [facility] discha rged 03-27-2023 Hospitalization History [facility] x2 7-2 023 Hospitalization History [facility] 10-2 023 [facility] Other 12-19-2023 History general Narrative - Reported* [...] Medical History [facility] Medical History 04/28/2022 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 failure w/hypoxia, acute on systolic chronic HF Medical History [facility]- r ight great toe bleeding (not stopping) Medical History pneumonia-[facility] 06-05 Medical History [facility]-7-2023 Medical History [id number]-[facility] Surgical History Cardiac catherization (07/2010) Surgical [...] Hospitalization History rt. heart cath Rex Stout- [facility] 05/11/16 Hospitalization History Water retention/ [facility] 02/2017 Hospitalization History Observation-[facility] [place] 11/2017 Hospitalization History INFECTION IN LEFT SMALL TOE AND FOOT 11/2018 Hospitalization History [facility] -- ICU -- COPD, SMAL L WOUND ON LEFT FOOT 12/2019 Hospitalization History COPD [facility] [place] 12/2019 Hospitalization History Ankle wound 01/2020 Hospitalization History COVID 11/2020 Hospitalization History A-FIB, CHF, KIDNEY ISSUE S 03/2021 Hospitalization History [facility] 01/2023 Hospitalization History [facility] discha rged 03-27-2023 Hospitalization History [facility] x2 7-2 023 Hospitalization History [facility] 10-2 023 [facility] Other 12-08-2023 History general Narrative - Reported* [...] Medical History [facility] Medical History 04/28/2022 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 failure w/hypoxia, acute on systolic chronic HF Medical History [facility]- r ight great toe bleeding (not stopping) Medical History pneumonia-[facility] 06-05 Medical History [facility]-7-2023 Medical History [id number]-[facility] Surgical History Cardiac catherization (07/2010) Surgical History AICD insertion (11/2010) Surgical History right sided heart cath - [facility] 10/2013 Surgical History appendectomy Surgical History rt [...] Hospitalization History rt. heart cath Rex Stout- [facility] 05/11/16 Hospitalization History Water retention/ [facility] 02/2017 Hospitalization History Observation-[facility] 11/2017 Hospitalization History INFECTION IN LEFT SMALL TOE AND FOOT 11/2018 Hospitalization History [facility] -- ICU -- COPD, SMAL L WOUND ON LEFT FOOT 12/2019 Hospitalization History COPD [facility] [place] 12/2019 Hospitalization History Ankle wound 01/2020 Hospitalization History COVID 11/2020 Hospitalization History A-FIB, CHF, KIDNEY ISSUE S 03/2021 Hospitalization History [facility] 01/2023 Hospitalization History [facility] discha rged 03-27-2023 Hospitalization History [facility] x2 7-2 023 Hospitalization History [facility] 10-2 023 [facility] Other 12-06-2023 History general Narrative - Reported* [...] Medical History [facility] Medical History 04/28/2022 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 failure w/hypoxia, acute on systolic chronic HF Medical History [facility]- r ight great toe bleeding (not stopping) Medical History pneumonia-[facility] 06-05 Medical History [facility]-7-2023 Medical History [id number]-[id number] Surgical History Cardiac catherization (07/2010) Surgical History AICD insertion (11/2010) Surgical History right sided heart cath - [facility] 10/2013 Surgical History appendectomy Surgical History rt [...] Hospitalization History rt. heart cath Rex Stout- [facility] 05/11/16 Hospitalization History Water retention/ [facility] 02/2017 Hospitalization History Observation-[facility] [place] 11/2017 Hospitalization History INFECTION IN LEFT SMALL TOE AND FOOT 11/2018 Hospitalization History [facility] -- ICU -- COPD, SMAL L WOUND ON LEFT FOOT 12/2019 Hospitalization History COPD [facility] [place] 12/2019 Hospitalization History Ankle wound 01/2020 Hospitalization History COVID 11/2020 Hospitalization History A-FIB, CHF, KIDNEY ISSUE S 03/2021 Hospitalization History [facility] [place]/2023 Hospitalization History [facility] discha rged 03-27-2023 Hospitalization History [facility] x2 7-2 023 Hospitalization History [facility] 10-2 023 [facility] [employer] [facility] Other 12-04-2023 Evaluation note* Encounter Date Diagnosis Assessment Notes Treatment Notes Treatment Clinical Notes Oct, Type 2 diabetes mellitus with hyperglycemia (ICD-10 - E11.65) [facility] [employer] [facility] Other 12-01-2023 Evaluation note* Encounter Date Diagnosis Assessment Notes Treatment Notes Treatment Clinical Notes Oct, Facet arthritis of lumbar region (ICD-10 - M46.96) [facility] [employer] Other 12-01-2023 History general Narrative - Reported* [...] Medical History [facility] Medical History 04/28/2022 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 failure w/hypoxia, acute on systolic chronic HF Medical History [facility]- r ight great toe bleeding (not stopping) Medical History pneumonia-[facility] 06-05 Medical History [facility]-7-2023 Medical History [id number]-[facility] Surgical History Cardiac catherization (07/2010) Surgical History AICD insertion (11/2010) Surgical History right sided heart cath - [facility] 10/2013 Surgical History appendectomy Surgical History rt [...] History rt. heart cath D Addy Stout- [facility] 05/11/16 Hospitalization History Water retention/ [facility] 02/2017 Hospitalization History Observation-[facility] [place] 11/2017 Hospitalization History INFECTION IN LEFT SMALL TOE AND FOOT 11/2018 Hospitalization History [facility] -- ICU -- COPD, SMAL L WOUND ON LEFT FOOT 12/2019 Hospitalization History COPD [facility] [place] 12/2019 Hospitalization History Ankle wound 01/2020 Hospitalization History COVID 11/2020 Hospitalization History A-FIB, CHF, KIDNEY ISSUE S 03/2021 Hospitalization History [facility] 01/2023 Hospitalization History [facility] discha rged 03-27-2023 Hospitalization History [facility] x2 7-2 023 Hospitalization History [facility] 10-2 023 [facility] Other 11-20-2023 Evaluation note* Encounter Date Diagnosis [...] spent on education by Lashell KARIMI, RN [facility] Other 11-16-2023 Evaluation note* Encounter Date Diagnosis [...] able to help patient improve his glycemia. [facility] Other 11-07-2023 History general Narrative - Reported* [...] Medical History [facility] Medical History 04/28/2022 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 failure w/hypoxia, acute on systolic chronic HF Medical History [facility]- r ight great toe bleeding (not stopping) Medical History pneumonia-[facility] 06-05 Medical History [facility]-7-2023 Medical History [id number]-[facility] Surgical History Cardiac catherization (07/2010) Surgical [...] Hospitalization History rt. heart cath Rex Stout- [facility] 05/11/16 Hospitalization History Water retention/ [facility] 02/2017 Hospitalization History Observation-[facility] 11/2017 Hospitalization History INFECTION IN LEFT SMALL TOE AND FOOT 11/2018 Hospitalization History [facility] -- ICU -- COPD, SMAL L WOUND ON LEFT FOOT 12/2019 Hospitalization History COPD [facility] [place] 12/2019 Hospitalization History Ankle wound 01/2020 Hospitalization History COVID 11/2020 Hospitalization History A-FIB, CHF, KIDNEY ISSUE S 03/2021 Hospitalization History [facility] 01/2023 Hospitalization History [facility] discha rged 03-27-2023 Hospitalization History [facility] x2 7-2 023 Hospitalization History [facility] 10-2 023 [facility] Other 11-03-2023 NoteUT Cardiology - [facility] Subjective Adwoa Porter is a 68 y.o. year old male patient being seen for Follow-up and Congestive Heart Failure Patient Active Problem List Diagnosis Anxiety state Atrial fibrillation (CMS/HCC) Chronic obstructive lung disease ([facility]/HCC) Chronic systolic congestive heart failure (CMS/HCC) Conduction disorder of the heart Atherosclerosis of [place] coronary artery of [place] heart without angina pectoris Type 2 diabetes [...] of lesser toe of left foot (CMS/HCC) penitentiary (current) use of anticoagulants Iron deficiency anemia [...] is significant for coronary artery disease with FIRMWARE MANAGER of the RCA and mild to moderate [...] October 2020. He was recently admitted to [facility] in August 2023 with acute respiratory [...] breath at rest. He recovered at the custodial facility but he is now back home. [...] distension. 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 failure w/hypoxia, acute on systolic chronic HF Medical History [facility]- r ight great toe bleeding (not stopping) Medical History pneumonia-[facility] 06-05 Medical History [facility]-7-2023 Medical History [id number]-[facility] Surgical History Cardiac catherization (07/2010) Surgical History AICD insertion (11/2010) Surgical History right sided heart cath - [facility] 10/2013 Surgical History appendectomy Surgical History rt [...] Hospitalization History rt. heart cath Rex Stout- [facility] 05/11/16 Hospitalization History Water retention/ [facility] 02/2017 Hospitalization History Observation-[facility] [place] 11/2017 Hospitalization History INFECTION IN LEFT SMALL TOE AND FOOT 11/2018 Hospitalization History [facility] -- ICU -- COPD, SMAL L WOUND ON LEFT FOOT 12/2019 Hospitalization History COPD [facility] [place] 12/2019 Hospitalization History Ankle wound 01/2020 Hospitalization History COVID 11/2020 Hospitalization History A-FIB, CHF, KIDNEY ISSUE S 03/2021 Hospitalization History [facility] 01/2023 Hospitalization History [facility] discha rged 03-27-2023 Hospitalization History [facility] x2 7-2 023 Hospitalization History [facility] 10-2 023 [facility] Other 10-31-2023 Evaluation note* Encounter Date Diagnosis [...] (hypertension) (ICD-10 - I10) reasonable today Aug, manager 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 failure w/hypoxia, acute on systolic chronic HF Medical History [facility]- r ight great toe bleeding (not stopping) Medical History pneumonia-[facility] 06-05 Medical History [facility]-7-2023 Medical History [id number]-[facility] Surgical History Cardiac catherization (07/2010) Surgical [...] Hospitalization History rt. heart cath Rex Stout- [facility] 05/11/16 Hospitalization History Water retention/ [facility] 02/2017 Hospitalization History Observ[facility] [place] 11/2017 Hospitalization History INFECTION IN LEFT SMALL TOE AND FOOT 11/2018 Hospitalization History [facility] -- ICU -- COPD, SMAL L WOUND ON LEFT FOOT 12/2019 Hospitalization History COPD [facility] [place] 12/2019 Hospitalization History Ankle wound 01/2020 Hospitalization History COVID 11/2020 Hospitalization History A-FIB, CHF, KIDNEY ISSUE S 03/2021 Hospitalization History [facility] 01/2023 Hospitalization History [facility] discha rged 03-27-2023 Hospitalization History [facility] x2 7-2 023 Hospitalization History [facility] 10-2 023 [facility] [employer] Other 10-30-2023 Evaluation note* Encounter Date Diagnosis Assessment Notes Treatment Notes Treatment Clinical Notes Aug, Facet arthritis of lumbar region (ICD-10 - M46.96) [facility] Other 10-13-2023 History general Narrative - Reported* [...] Medical History [facility] Medical History 04/28/2022 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 failure w/hypoxia, acute on systolic chronic HF Medical History [facility]- r ight great toe bleeding (not stopping) Medical History pneumonia-[facility] 06-05 Medical History [facility]-7-2023 Surgical History Cardiac catherization (07/2010) Surgical History AICD insertion (11/2010) Surgical History right sided heart cath - [facility] 10/2013 Surgical History appendectomy Surgical History rt heart cath 05/11/16 Surgical History pacemaker 07/2016 Surgical History SKIN GRAFT-FROM LEFT LEG TO LEF T FOOT 10/2018 Surgical History LEFT SMALL TOE AMPUTATION WITH SOME FOOT BONE 11/2018 Surgical History COLONOSCOPY AND EGD [facility] Surgical History amputation left fifth toe Surgical History Ankle I/D LEFT 01/2020 Surgical History Left heel skin graft 03/29/2020 Surgical History SKIN GRAFT TO LEFT FOOT 03/2020 Surgical History CATARACT REMOVED ON RIGHT EYE Surgical History CATARACT REMOVED FROM LEFT EYE 06/2021 Hospitalization History see surgical hx Hospitalization History rt. heart cath Rex Stout- [facility] 05/11/16 Hospitalization History Water retention/ [facility] 02/2017 Hospitalization History Observation-[facility] [place] 11/2017 Hospitalization History INFECTION IN LEFT SMALL TOE AND FOOT 11/2018 Hospitalization History [facility] -- ICU -- COPD, SMAL L WOUND ON LEFT FOOT 12/2019 Hospitalization History COPD [facility] [place] 12/2019 Hospitalization History Ankle wound 01/2020 Hospitalization History COVID 11/2020 Hospitalization History A-FIB, CHF, KIDNEY ISSUE S 03/2021 Hospitalization History [facility] 01/2023 Hospitalization History [facility] discha rged 03-27-2023 Hospitalization History [facility] x2 7-2 023 [facility] Other 10-12-2023 History general Narrative - Reported* [...] Medical History [facility] Medical History 04/28/2022 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 failure w/hypoxia, acute on systolic chronic HF Medical History [facility]- r ight great toe bleeding (not stopping) Medical History pneumonia-[facility] - Medical History [facility]-7-2023 Surgical History Cardiac catherization (07/2010) Surgical History AICD insertion (11/2010) Surgical History right sided heart cath - [facility] 10/2013 Surgical History appendectomy Surgical History rt [...] Hospitalization History rt. heart cath Rex Stout- [facility] 05/11/16 Hospitalization History Water retention/ [facility] 02/2017 Hospitalization History Observation-[facility] [place] 11/2017 Hospitalization History INFECTION IN LEFT SMALL TOE AND FOOT 11/2018 Hospitalization History [facility] -- ICU -- COPD, SMAL L WOUND ON LEFT FOOT 12/2019 Hospitalization History COPD [facility] [place] 12/2019 Hospitalization History Ankle wound 01/2020 Hospitalization History COVID 11/2020 Hospitalization History A-FIB, CHF, KIDNEY ISSUE S 03/2021 Hospitalization History [facility] 01/2023 Hospitalization History [facility] discha rged 03-27-2023 Hospitalization History [facility] x2 7-2 023 [facility] Other 10-05-[facility] NotePatient here for follow up [...] weakness. All other systems reviewed and are negative.[facility] 08-23-2023 NoteCardiovascular Medicine [facility] SUBJECTIVE Chief Complaint Patient presents with Wheezing Hospital Follow-up Adwoa Porter is a 68 y.o. male here for follow-up. Congestive Heart Failure His past medical history is significant for CAD. Coronary Artery Disease His past medical history is significant for CHF. Adwoa Porter is a 67 y.o. 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 Patient here for follow up [facility] discharge yesterday for HFrEF. His girlfriend called the office yesterday when he was being discharged to make us aware that he's still very swollen and SOB. He is down 12# from his office visit last week with Cecile Watson. Patient is c/o wheezing and is requesting something for cough. 08/23/2023 He was recently admitted to [facility] for acute on chronic HFrEF exacerbation and [...] Conduction disorder of the heart Atherosclerosis of [place] coronary artery of [place] heart without angina pectoris Type 2 diabetes [...] of lesser toe of left foot (CMS/HCC) penitentiary (current) use of anticoagulants Iron deficiency anemia Hyperglycemia due to type 2 diabetes mellitus (CMS/HCC) Past Medical History: Diagnosis Date Anxiety Atrial fibrillation (CMS/HCC) Cardiomyopathy (CMS/HCC) CHF (congestive heart failure) ([facility]/HCC) Chronic kidney disease COPD (chronic obstructive pulmonary disease) (CMS/HCC) Coronary artery disease Diabetes mellitus ([facility]) High cholesterol Hyperlipidemia Hypertension Family History Problem [...] (5' 9 ) Wt (more content not included)...[facility]10-05-2023 Evaluation note* Encounter Date Diagnosis Assessment Notes Treatment Notes Treatment Clinical Notes Aug, Facet arthritis of lumbar region (ICD-10 - M46.96) [facility] Other 09-27-2023 NoteCurrently stable*[facility]09-27-2023 NoteSending for labs today and pt to f/U with Dr Orr as scheduledUn[facility]09-27-2023 NoteNYHC- III Continue GDMT- ASA, lipitor, [...] bmp and BNP F/U with nephrology as scheduledUnMemorial Hospital09-27-2023 NoteContinue Coreg- currently stable and no concerning symptomsUnMemorial Hospital09-27-2023 NoteUTP CARDIOLOGY PROGRESS NOTE HPI: Adwoa [...] to afford Farxiga. He was admitted to [facility] last week for hemoptysis. This has subsided. [...] reviewed and are negative. Recent eval in [facility] ED 07/31/23 Visit Vitals BP 121/79 (BP [...] with lunch, and with evening meal. HYDROcodone-acetaminophen ([place]) 5-325 mg tablet Take 1 tablet by [...] Pulmonary: Effort: Pulmonary effo (more content not included)...[facility]09-27-2023 NotePatient here for follow up lasix increase. Dr. Stout increased it to 140mg bid a few days ago. He has taken 3 doses of this so far and feels so much better. He is unable to afford Farxiga. He was admitted to [facility] last week for hemoptysis. This has subsided. [...] weakness. All other systems reviewed and are negative.[facility] 08-03-2023 History general Narrative - Reported* [...] Medical History [facility] Medical History 04/28/2022 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 failure w/hypoxia, acute on systolic chronic HF Medical History [facility]- r ight great toe bleeding (not stopping) Medical History pneumonia-[facility] - Medical History [facility]-7-2023 Surgical History Cardiac catherization (07/2010) Surgical History AICD insertion (11/2010) Surgical History right sided heart cath - [facility] 10/2013 Surgical History appendectomy Surgical History rt [...] Hospitalization History rt. heart cath Rex Stout- [facility] 05/11/16 Hospitalization History Water retention/ [facility] 02/2017 Hospitalization History Observation-[facility] [place] 11/2017 Hospitalization History INFECTION IN LEFT SMALL TOE AND FOOT 11/2018 Hospitalization History [facility] -- ICU -- COPD, SMAL L WOUND ON LEFT FOOT 12/2019 Hospitalization History COPD [facility] [place] 12/2019 Hospitalization History Ankle wound 01/2020 Hospitalization History COVID 11/2020 Hospitalization History A-FIB, CHF, KIDNEY ISSUE S 03/2021 Hospitalization History [facility] 01/2023 Hospitalization History [facility] discha rged 03-27-2023 Hospitalization History [facility] x2 7-2 023 [facility] [employer] Other 09-08-2023 Evaluation note* Encounter Date Diagnosis Assessment Notes Treatment Notes Treatment Clinical Notes Jul, Acute cough (ICD-10 - R05.1) [facility] Other 09-08-2023 History general Narrative - Reported* [...] Medical History [facility] Medical History 04/28/2022 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 failure w/hypoxia, acute on systolic chronic HF Medical History [facility]- r ight great toe bleeding (not stopping) Medical History pneumonia-[facility] 06-05 Medical History [facility]-7-2023 Surgical History Cardiac catherization (07/2010) [...] Hospitalization History rt. heart cath Rex Stout- [facility] 05/11/16 Hospitalization History Water retention/ [facility] 02/2017 Hospitalization History Observation-[facility] p[facility] 11/2017 Hospitalization History INFECTION IN LEFT SMALL TOE AND FOOT 11/2018 Hospitalization History [facility] -- ICU -- COPD, SMAL L WOUND ON LEFT FOOT 12/2019 Hospitalization History COPD [facility] [place] 12/2019 Hospitalization History Ankle wound 01/2020 Hospitalization History COVID 11/2020 Hospitalization History A-FIB, CHF, KIDNEY ISSUE S 03/2021 Hospitalization History [facility] 01/2023 Hospitalization History [facility] discha rged 03-27-2023 Hospitalization History [facility] x2 7-2 023 [facility] Other 09-01-2023 Evaluation note* Encounter Date Diagnosis Assessment Notes Treatment Notes Treatment Clinical Notes Jul, Facet arthritis of lumbar region (ICD-10 - M46.96) [facility] Other 09-01-2023 History general Narrative - Reported* [...] Medical History V[facility]IGO Medical History 04/28/2022 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 failure w/hypoxia, acute on systolic chronic HF Medical History [facility]- r ight great toe bleeding (not stopping) Medical History pneumonia-[facility] 06-05 Medical History [facility]-7-2023 Surgical History Cardiac catherization (07/2010) [...] Hospitalization History rt. heart cath Rex Stout- [facility] 05[facility]11/16 Hospitalization History Water retention/ [facility] 02/2017 Hospitalization History Observation-[facility] [place] 11/2017 Hospitalization History INFECTION IN LEFT SMALL TOE AND FOOT 11/2018 Hospitalization History [facility] -- ICU -- COPD, SMAL L WOUND ON LEFT FOOT 12/2019 Hospitalization History COPD [facility] [place] 12/2019 Hospitalization History Ankle wound 01/2020 Hospitalization History COVID 11/2020 Hospitalization History A-FIB, CHF, KIDNEY ISSUE S 03/2021 Hospitalization History [facility] [place]23 Hospitalization History [facility] discha rged 03-27-2023 Hospitalization History [facility] [phone] [facility] Other 08-31-2023 Evaluation note* Encounter Date Diagnosis Assessment Notes Treatment Notes Treatment Clinical Notes Jun, Chronic systolic congestive heart failure (ICD-10 - I50.22) [facility] Other 08-24-2023 History general Narrative - Reported* [...] Medical History [facility] Medical History 04/28/2022 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 failure w/hypoxia, acute on systolic chronic HF Medical History [facility]- r ight great toe bleeding (not stopping) Medical History pneumonia-[facility] 06-05 Medical History [facility]-7-2023 Surgical History Cardiac catherization (07/2010) Surgical History AICD insertion (11/2010) Surgical History right sided heart cath - [facility] 10/2013 Surgical History appendectomy Surgical History rt [...] Hospitalization History rt. heart cath Rex Stout- [facility] 05/11/16 Hospitalization History Water retention/ [facility] 02/2017 Hospitalization History Observation-[facility] [place] 11/2017 Hospitalization History INFECTION IN LEFT SMALL TOE AND FOOT 11/2018 Hospitalization History [facility] -- ICU -- COPD, SMAL L WOUND ON LEFT FOOT 12/2019 Hospitalization History COPD [facility] [place] 12/2019 Hospitalization History Ankle wound 01/2020 Hospitalization History COVID 11/2020 Hospitalization History A-FIB, CHF, KIDNEY ISSUE S 03/2021 Hospitalization History [facility] 01/2023 Hospitalization History [facility] discha rged 03-27-2023 Hospitalization History [facility] [phone] [facility] Other 08-11-2023 Evaluation note* Encounter Date Diagnosis [...] of this is related to diabetic neuropathy [facility] Other 08-11-2023 Evaluation note* Encounter Date Diagnosis [...] (hypertension) (ICD-10 - I10) reasonable today Jun, pen[facility]iary current use of insulin (ICD-10 - Z79.4) Jun, Vitamin B 12 deficiency (ICD-10 - E53.8) Jun, CKD (chronic kidney disease) stage 3, GFR 30-59 ml/min (ICD-10 - N18.3) keep f/u with nephrology Jun, Type 2 diabetes mellitus with diabetic neuropathy, unspecified (ICD-10 - E11.40) Jun, BMI 32.0-32.9,adult (ICD-10 - Z68.32) [facility] Other 08-11-2023 History general Narrative - Reported* [...] Medical History [facility] Medical History 04/28/2022 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 failure w/hypoxia, acute on systolic chronic HF Medical History [facility]- r ight great toe bleeding (not stopping) Medical History pneumonia-[facility] 06-05 Medical History [facility]-7-2023 Surgical History Cardiac catherization (07/2010) Surgical History AICD insertion (11/2010) Surgical History right sided heart cath - [facility] 10/2013 Surgical History appendectomy Surgical History rt [...] Hospitalization History rt. heart cath Rex Stout- [facility] 05/11/16 Hospitalization History Water retention/ [facility] 02/2017 Hospitalization History Observation-[facility] [place] 11/2017 Hospitalization History INFECTION IN LEFT SMALL TOE AND FOOT 11/2018 Hospitalization History [facility] -- ICU -- COPD, SMAL L WOUND ON LEFT FOOT 12/2019 Hospitalization History COPD [facility] [place] 12/2019 Hospitalization History Ankle wound 01/2020 Hospitalization History COVID 11/2020 Hospitalization History A-FIB, CHF, KIDNEY ISSUE S 03/2021 Hospitalization History [facility] 01/2023 Hospitalization History [facility] discha rged 03-27-2023 Hospitalization History [facility] [phone] [facility] Other 07-31-2023 Evaluation note* Encounter Date Diagnosis [...] not be able to stay at home [facility] Other 07-31-2023 History general Narrative - Reported* [...] Medical History [facility] Medical History 04/28/2022 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 failure w/hypoxia, acute on systolic chronic HF Medical History [facility]- r ight great toe bleeding (not [...] History rt. heart cath D Addy Stout- [facility] 05/11/16 Hospitalization History Water retention/ [facility] 02/2017 Hospitalization History Observation-[facility] [place] 11/2017 Hospitalization History INFECTION IN LEFT SMALL TOE AND FOOT 11/2018 Hospitalization History [facility] -- ICU -- COPD, SMAL L WOUND ON LEFT FOOT 12/2019 Hospitalization History COPD [facility] [place] 12/2019 Hospitalization History Ankle wound 01/2020 Hospitalization History COVID 11/2020 Hospitalization History A-FIB, CHF, KIDNEY ISSUE S 03/2021 Hospitalization History [facility] 01/2023 Hospitalization History [facility] discha rged 03-27-2023 [facility] Other 07-18-2023 [facility] Cardiology - [facility] Subjective Adwoa Porter is a 67 y.o. year old male patient being seen for Follow-up Patient Active Problem List Diagnosis Anxiety state Atrial fibrillation (CMS/HCC) Chronic obstructive lung disease (CMS/HCC) Chronic systolic congestive heart failure (CMS/HCC) Conduction disorder of the heart Atherosclerosis of [place] coronary artery of [place] heart without angina pectoris Type 2 diabetes mellitus with diabetic peripheral angiopathy without gangrene, with long-term current use of insulin (CMS/HCC) Dyspnea Mixed hyperlipidemia Implantable cardioverter-defibrillator (ICD) in situ Obesity Palpitations Paroxysmal ventricular tachycardia (CMS/HCC) Raised prostate specific antigen Renal function test abnormal Uncontrolled type 2 diabetes mellitus Upper respiratory infection Stage 3b chronic kidney disease ([facility]/HCC) ISAK on CPAP PVD (peripheral vascular disease) ([facility]) Osteomyelitis of left foot ([facility]) Open wound of finger Cellulitis of left upper extremity Abdominal tenderness Acute on chronic respiratory failure ([facility]) Benign prostatic hyperplasia with urinary obstruction Cardiomyopathy, ischemic Former smoker Heart murmur Incomplete emptying of bladder Increased frequency of urination Nocturia Urethral stricture Urge incontinence of urine Urinary urgency Type 2 diabetes mellitus without complication ([facility]) Family History Problem Relation Name Age of Onset Diabetes Mother Hypertension Mother Coronary artery disease Mother Social History Tobacco Use Smoking status: Every Day Types: Cigarettes Passive exposure: Never Smokeless tobacco: Never Vaping Use Vaping Use: Never used Substance Use Topics Alcohol use: Never Drug use: Not Currently HPI Adwoa is seen in follow-up after recent admission to the [facility] with decompensated heart failure. He underwent [...] is significant for coronary artery disease with FIRMWARE MANAGER of the RCA and mild to moderate [...] with us he was admitted to the [facility] twice with decompensated heart failure. 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 failure w/hypoxia, acute on systolic chronic HF Medical History [facility]- r ight great toe bleeding (not [...] Hospitalization History rt. heart cath Rex Stout- [facility] 05/11/16 Hospitalization History Water retention/ [facility] 02/2017 Hospitalization History [facility]ation-[facility] [place] 11/2017 Hospitalization History INFECTION IN LEFT SMALL TOE AND FOOT 11/2018 Hospitalization History [facility] -- ICU -- COPD, SMAL L WOUND ON LEFT FOOT 12/2019 Hospitalization History COPD [facility] [place] 12/2019 Hospitalization History Ankle wound 01/2020 Hospitalization History COVID 11/2020 Hospitalization History A-FIB, CHF, KIDNEY ISSUE S 03/2021 Hospitalization History [facility] 01/2023 Hospitalization History [facility] discha rged 03-27-2023 [facility] Other 2023 History general Narrative - Reported* [...] Medical History [facility] Medical History 04/28/2022 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 failure w/hypoxia, acute on systolic chronic HF Medical History [facility]- r ight great toe bleeding (not stopping) Surgical History Cardiac catherization (07/2010) Surgical History AICD insertion (11/2010) Surgical History right sided heart cath - [facility] 10/2013 Surgical History appendectomy Surgical History rt [...] Hospitalization History rt. heart cath Rex Stout- [facility] 05/11/16 Hospitalization History Water retention/ [facility] 02/2017 Hospitalization History Observation-[facility] [place] 11/2017 Hospitalization History INFECTION IN LEFT SMALL TOE AND FOOT 11/2018 Hospitalization History [facility] [place] -- ICU -- COPD, SMAL L WOUND ON LEFT FOOT 12/2019 Hospitalization History COPD [facility] [place] 12/2019 Hospitalization History Ankle wound 01/2020 Hospitalization History COVID 11/2020 Hospitalization History A-FIB, CHF, KIDNEY ISSUE S 03/2021 Hospitalization History [facility] 01/2023 Hospitalization History [facility] discha rged 03-27-2023 [facility] Other 06-14-2023 Evaluation note* Encounter Date Diagnosis [...] sensors on. He was given 6 grif senior paralegal to assist him with wearing the device. 45 minutes were spent evaluating the patient's report and discussing its findings with the patient by Shaw Rondon RN, [facility]. [facility] Other 06-01-2023 Evaluation note* Encounter Date Diagnosis [...] leukocytosis and currently follows with a hematology. [facility] Other 06-01-2023 Evaluation note* Encounter Date Diagnosis [...] understanding and is agreeable with treatment plan. 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 heart cath Rex Stout- [facility] 05/11/16 Hospitalization History Water retention/ [facility] 02/2017 Hospitalization History [facility]2017 Hospitalization History INFECTION IN LEFT SMALL TOE AND FOOT 11/2018 Hospitalization History [facility] -- ICU -- COPD, SMAL L WOUND ON LEFT FOOT 12/2019 Hospitalization History COPD [facility] [place] 12/2019 Hospitalization History Ankle wound 01/2020 Hospitalization History COVID 11/2020 Hospitalization History A-FIB, CHF, KIDNEY ISSUE S 03/2021 Hospitalization History [facility] 01/2023 [facility] Other 05-03-2023 NoteCardiology Clinic Note Subjective Adwoa [...] Conduction disorder of the heart Atherosclerosis of [place] coronary artery of [place] heart without angina pectoris Type 2 diabetes [...] in follow-up after recent admission to the [facility] with decompensated heart failure. He underwent [...] is significant for coronary artery disease with FIRMWARE MANAGER of the RCA and mild to moderate [...] tablet, Rfl: 2 digoxin (more content not included)...[facility] 03-21-2023 NotePatient here for 6 week [...] weakness. 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 heart cath Rex Stout- [facility] 05/11/16 Hospitalization History Water retention/ [facility] 02/2017 Hospitalization History [facility] 11/2017 Hospitalization History INFECTION IN LEFT SMALL TOE AND FOOT 11/2018 Hospitalization History [facility] -- ICU -- COPD, SMAL L WOUND ON LEFT FOOT 12/2019 Hospitalization History COPD [facility] [place] 12/2019 Hospitalization History Ankle wound 01/2020 Hospitalization History COVID 11/2020 Hospitalization History A-FIB, CHF, KIDNEY ISSUE S 03/2021 Hospitalization History [facility] 01/2023 [facility] Other 05-01-2023 Evaluation note* Encounter Date Diagnosis Assessment Notes Treatment Notes Treatment Clinical Notes March, Facet arthritis of lumbar region (ICD-10 - M46.96) [facility] Other 05-01-2023 History general Narrative - Reported* [...] Medical History [facility] Medical History 04/28/2022 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 failure w/hypoxia, acute on systolic chronic HF Surgical History Cardiac catherization (07/2010) Surgical History AICD insertion (11/2010) Surgical History right sided heart cath - [facility] 10/2013 Surgical History appendectomy Surgical History rt [...] Hospitalization History rt. heart cath Rex Stout- [facility] 05/11/16 Hospitalization History Water retention/ [facility] 02/2017 Hospitalization History Observation-[facility] [place] 11/2017 Hospitalization History INFECTION IN LEFT SMALL TOE AND FOOT 11/2018 Hospitalization History [facility] -- ICU -- COPD, SMAL L WOUND ON LEFT FOOT 12/2019 Hospitalization History COPD [facility] [place] 12/2019 Hospitalization History Ankle wound 01/2020 Hospitalization History COVID 11/2020 Hospitalization History A-FIB, CHF, KIDNEY ISSUE S 03/2021 Hospitalization History [facility] 01/2023 [facility] Other 04-12-2023 History general Narrative - Reported* [...] Medical History [facility] Medical History 04/28/2022 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 heart cath Rex Stout- [facility] 05/11/16 Hospitalization History Water retention/ [facility] 02/2017 Hospitalization History [facility] [place] 11/2017 Hospitalization History INFECTION IN LEFT SMALL TOE AND FOOT 11/2018 Hospitalization History [facility] -- ICU -- COPD, SMAL L WOUND ON LEFT FOOT 12/2019 Hospitalization History COPD [facility] [place] 12/2019 Hospitalization History Ankle wound 01/2020 Hospitalization History COVID 11/2020 Hospitalization History A-FIB, CHF, KIDNEY ISSUE S 03/2021 Hospitalization History [facility] 01/2023 [facility] Other 04-11-2023 History general Narrative - Reported* [...] Medical History [facility] Medical History 04/28/2022 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 heart cath Rex Stout- [facility] 05/11/16 Hospitalization History Water retention/ [facility] 02/2017 Hospitalization History [facility] [place] 11/2017 Hospitalization History INFECTION IN LEFT SMALL TOE AND FOOT 11/2018 Hospitalization History [facility] -- ICU -- COPD, SMAL L WOUND ON LEFT FOOT 12/2019 Hospitalization History COPD [facility] [place] 12/2019 Hospitalization History Ankle wound 01/2020 Hospitalization History COVID 11/2020 Hospitalization History A-FIB, CHF, KIDNEY ISSUE S 03/2021 Hospitalization History [facility] 01/2023 [facility] Other 04-05-2023 Evaluation note* Encounter Date Diagnosis [...] - N18.30) Feb, Hypokalemia (ICD-10 - E87.6) [facility] Other 03-24-2023 Evaluation note* Encounter Date Diagnosis [...] failure so a printed prescription was provided [facility] Other 03-13-2023 [facility] Cardiology - [facility] Subjective Adwoa Porter is a 67 y.o. year old male patient being seen for follow up [facility] [place] for CHF. He is down 30# since last office visit on 01/05/2023. He is feeling much better since discharge. He is now taking metolazone once a week. Bumex was switched to furosemide. Patient Active Problem List Diagnosis Anxiety state Atrial fibrillation (CMS/HCC) Chronic obstructive lung disease (CMS/HCC) Chronic systolic congestive heart failure (CMS/HCC) Conduction disorder of the heart Atherosclerosis of [place] coronary artery of [place] heart without angina pectoris Type 2 diabetes [...] in follow-up after recent admission to the [facility] with decompensated heart failure. He underwent [...] is significant for coronary artery disease with FIRMWARE MANAGER of the RCA and mild to moderate [...] Reactions Lupis Inhibitors Medicatio (more content not included)...[facility] 01-17-2023 Evaluation note* Encounter Date Diagnosis [...] - M46.96) Continue current medication, OARRS reviewed [facility] Other 02-28-2023 Evaluation note* Encounter Date Diagnosis Assessment Notes Treatment Notes Treatment Clinical Notes Dec, Lumbar and sacral arthritis (ICD-10 - M48.9) [facility] Other 02-24-2023 History general Narrative - Reported* [...] Medical History [facility] Medical History 04/28/2022 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 failure w/hypoxia, acute on systolic chronic HF Surgical History Cardiac catherization (07/2010) Surgical History AICD insertion (11/2010) Surgical History right sided heart cath - [facility] 10/2013 Surgical History appendectomy Surgical History rt heart cath 05/11/16 Surgical History pacemaker 07/2016 Surgical History SKIN GRAFT-FROM LEFT LEG TO LEF T FOOT 10/2018 Surgical History LEFT SMALL TOE AMPUTATION WITH SOME FOOT BONE 11/2018 Surgical History COLONOSCOPY AND EGD [facility] Surgical History amputation left fifth toe Surgical History Ankle I/D LEFT 01/2020 Surgical History Left heel skin graft 03/29/2020 Surgical History SKIN GRAFT TO LEFT FOOT 03/2020 Surgical History CATARACT REMOVED ON RIGHT EYE Surgical History CATARACT REMOVED FROM LEFT EYE 06/2021 Hospitalization History see surgical hx Hospitalization History rt. heart cath Rex Stout- [facility] 05/11/16 Hospitalization History Water retention/ [facility] 02/2017 Hospitalization History [facility] [place] 11/2017 Hospitalization History INFECTION IN LEFT SMALL TOE AND FOOT 11/2018 Hospitalization History [facility] -- ICU -- COPD, SMAL L WOUND ON LEFT FOOT 12/2019 Hospitalization History COPD [facility] [place] 12/2019 Hospitalization History Ankle wound 01/2020 Hospitalization History COVID 11/2020 Hospitalization History A-FIB, CHF, KIDNEY ISSUE S 03/2021 [facility] Other 02-23-2023 History general Narrative - Reported* [...] Medical History [facility] Medical History 04/28/2022 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 heart cath Rex Stout- [facility] 05/11/16 Hospitalization History Water retention/ [facility] 02/2017 Hospitalization History Observation-[facility] [place] 11/2017 Hospitalization History INFECTION IN LEFT SMALL TOE AND FOOT 11/2018 Hospitalization History [facility] -- ICU -- COPD, SMAL L WOUND ON LEFT FOOT 12/2019 Hospitalization History COPD [facility] [place] 12/2019 Hospitalization History Ankle wound 01/2020 Hospitalization History COVID 11/2020 Hospitalization History A-FIB, CHF, KIDNEY ISSUE S 03/2021 [facility] Other 02-18-2023 History general Narrative - Reported* [...] Medical History V[facility]IGO Medical History 04/28/2022 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 failure w/hypoxia, acute on systolic chronic HF Surgical History Cardiac catherization (07/2010) Surgical History AICD insertion (11/2010) Surgical History right sided heart cath - [facility] 10/2013 Surgical History appendectomy Surgical History rt [...] Hospitalization History rt. heart cath Rex Stout- [facility] 05/11/16 Hospitalization History Water retention/ [facility] 02/2017 Hospitalization History [facility] [place] 11/2017 Hospitalization History INFECTION IN LEFT SMALL TOE AND FOOT 11/2018 Hospitalization History [facility] -- ICU -- COPD, SMAL L WOUND ON LEFT FOOT 12/2019 Hospitalization History COPD [facility] [place] 12/2019 Hospitalization History Ankle wound 01/2020 Hospitalization History COVID 11/2020 Hospitalization History A-FIB, CHF, KIDNEY ISSUE S 03/2021 [facility] Other 02-13-2023 History general Narrative - Reported* [...] Medical History VERTIGO Medical History 04/28/2022 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 heart cath Rex Stout- [facility] 05/11/16 Hospitalization History Water retention/ [facility] 02/2017 Hospitalization History Observation-[facility] [place] 11/2017 Hospitalization History INFECTION IN LEFT SMALL TOE AND FOOT 11/2018 Hospitalization History [facility] -- ICU -- COPD, SMAL L WOUND ON LEFT FOOT 12/2019 Hospitalization History COPD [facility] [place] 12/2019 Hospitalization History Ankle wound 01/2020 Hospitalization History COVID 11/2020 Hospitalization History A-FIB, CHF, KIDNEY ISSUE S 03/2021 [facility] Other 02-12-2023 History general Narrative - Reported* [...] Medical History VERTIGO Medical History 04/28/2022 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 heart cath Rex Stout- [facility] 05/11/16 Hospitalization History Water retention/ [facility] 02/2017 Hospital[facility] 11[facility]2017 Hospitalization History INFECTION IN LEFT SMALL TOE AND FOOT 11/2018 Hospitalization History [facility] -- ICU -- COPD, SMAL L WOUND ON LEFT FOOT 12/2019 Hospitalization History COPD [facility] [place] 12/2019 Hospitalization History Ankle wound 01/2020 Hospitalization History COVID 11/2020 Hospitalization History A-FIB, CHF, KIDNEY ISSUE S 03/2021 [facility] Other 01-24-2023 Evaluation note* Encounter Date Diagnosis [...] with him by Shaw Rondon RN, [facility]. 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 appt scheduled for 11:00am today. Doris Modi 12/13/2022 12:20:16 PM >faxed letter to obtain consult note Doris Modi 12/14/2022 07:21:24 AM >received VM from marilu sinha [facility], she stated they saw pt, however; he told them he was not ready for comfort care and therefore did not sign on with hospice. Closing referral [facility] Other 12-27-2022 Evaluation note* Encounter Date Diagnosis Assessment Notes Treatment Notes Treatment Clinical Notes Oct, Lumbar and sacral arthritis (ICD-10 - M48.9) [facility] Other 12-20-2022 Evaluation note* Encounter Date Diagnosis [...] with both medications. We had applied for [employer] patient assistance it appears his Farxiga is [...] with diabetic education in 4 weeks and sc with 8 weeks to assure mitigation of [...] (ICD-10 - I10) f/u with pcp Oct, manager long term care 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 heart cath Rex Stout- [facility] 05/11/16 Hospitalization History Water retention/ [facility] 02/2017 Hospitalization [facility] 11/2017 Hospitalization History INFECTION IN LEFT SMALL TOE AND FOOT 11/2018 Hospitalization History [facility] -- ICU -- COPD, SMAL L WOUND ON LEFT FOOT 12/2019 Hospitalization History COPD [facility] [place] 12/2019 Hospitalization History Ankle wound 01/2020 Hospitalization History COVID 11/2020 Hospitalization History A-FIB, CHF, KIDNEY ISSUE S 03/2021 [facility] Other 11-10-2022 Evaluation note* Encounter Date Diagnosis [...] the goal and has adequate [employer] stores [facility] Other 11-10-2022 Evaluation note* Encounter Date Diagnosis [...] plan Sep, Other Wright material was printed [facility] Other 11-10-2022 History general Narrative - Reported* [...] Medical History VERTIGO Medical History 04/28/2022 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 heart cath Rex Khan- [facility] 05/11/16 Hospitalization History Water retention/ [facility] 02/2017 Hospitalization History Observation-[facility] [place] 11/2017 Hospitalization History INFECTION IN LEFT SMALL TOE AND FOOT 11/2018 Hospitalization History [facility] -- ICU -- COPD, SMAL L WOUND ON LEFT FOOT 12/2019 Hospitalization History COPD [facility] [place] 12/2019 Hospitalization History Ankle wound 01/2020 Hospitalization History COVID 11/2020 Hospitalization History A-FIB, CHF, KIDNEY ISSUE S 03/2021 [facility] Other 10-26-2022 Evaluation note* Encounter Date Diagnosis [...] any worsening erythema, or with other concerns. [facility] Other 10-26-2022 History general Narrative - Reported* [...] Medical History VERTIGO Medical History 04/28/2022 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 heart cath Rex Stout- [facility] 05/11/16 Hospitalization History Water retention/ [facility] 02/2017 Hospitalization History [facility]ation-[facility] [place] 11/2017 Hospitalization History INFECTION IN LEFT SMALL TOE AND FOOT 11/2018 Hospitalization History [facility] -- ICU -- COPD, SMAL L WOUND ON LEFT FOOT 12/2019 Hospitalization History COPD [facility] [place] 12/2019 Hospitalization History Ankle wound 01/2020 Hospitalization History COVID 11/2020 Hospitalization History A-FIB, CHF, KIDNEY ISSUE S 03/2021 [facility] Other 10-21-2022 Evaluation note* Encounter Date Diagnosis Assessment Notes Treatment Notes Treatment Clinical Notes Aug, Lumbar and sacral arthritis (ICD-10 - M48.9) [facility] Other 10-03-2022 History general Narrative - Reported* [...] Hospitalization History rt. heart cath Rex Stout- [facility] 05/11/16 Hospitalization History Water retention/ [facility] 02/2017 Hospitalization History Observation-[facility] [place] 11/2017 Hospitalization History INFECTION IN LEFT SMALL TOE AND FOOT 11/2018 Hospitalization History [facility] -- ICU -- COPD, SMAL L WOUND ON LEFT FOOT 12/2019 Hospitalization History COPD [facility] [place] 12/2019 Hospitalization History Ankle wound 01/2020 Hospitalization History COVID 11/2020 Hospitalization History A-FIB, CHF, KIDNEY ISSUE S 03/2021 [facility] Other 09-12-2022 Evaluation note* Encounter Date Diagnosis [...] (ICD-10 - I10) f/u with pcp Jul, manager long term care 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 [facility] Other 08-04-2022 History general Narrative - Reported* [...] Hospitalization History rt. heart cath Rex Stout- [facility] 05/11/16 Hospitalization History Water retention/ [facility] 02/2017 Hospitalization History Observation-[facility] [place] 11/2017 Hospitalization History INFECTION IN LEFT SMALL TOE AND FOOT 11/2018 Hospitalization History [facility] -- ICU -- COPD, SMAL L WOUND ON LEFT FOOT 12/2019 Hospitalization History COPD [facility] [place] 12/2019 Hospitalization History Ankle wound 01/2020 Hospitalization History COVID 11/2020 Hospitalization History A-FIB, CHF, KIDNEY ISSUE S 03/2021 [facility] Other 08-02-2022 Evaluation note* Encounter Date Diagnosis Assessment Notes Treatment Notes Treatment Clinical Notes Jun, Community acquired pneumonia, unspecified laterality (ICD-10 - J18.9) He will complete the antibiotics and call with any worsening symptoms. I also advised him to call with any worsening diarrhea Jun, COPD (chronic obstructive pulmonary disease) (ICD-10 - J44.9) [facility] Other 08-02-2022 History general Narrative - Reported* [...] Hospitalization History rt. heart cath Rex Stout- [facility] 05/11/16 Hospitalization History Water retention/ [facility] 02/2017 Hospitalization History [facility]ation-[facility] [place] 11/2017 Hospitalization History INFECTION IN LEFT SMALL TOE AND FOOT 11/2018 Hospitalization History [facility] -- ICU -- COPD, SMAL L WOUND ON LEFT FOOT 12/2019 Hospitalization History COPD [facility] [place] 12/2019 Hospitalization History Ankle wound 01/2020 Hospitalization History COVID 11/2020 Hospitalization History A-FIB, CHF, KIDNEY ISSUE S 03/2021 [facility] Other 07-27-2022 Progress note Author Ethan Cummings [facility] June 13, 2022 10:16pm Note Date/Time June 06, 2022 11:5 4am [facility] [place] [address] Hem/Onc Follow Up Note - OP Signed Patient: Adwoa Porter MR#: [id number] : 1955 Acct:[id number] Age/Sex: 66 / M Type: REG RCR [...] hs BCR/ABL was negative. Recent hospitalization at [place] for COVID PNA. He had also a [...] for coordination of care (as documented) and onat-oy-hfob counseling of patient and/or family. [facility] - Medical History Medical History: [...] signed by Ethan Cummings II, DO> 06/13/22 [address] [facility] Work Phone: 1(197) 720-929306-28-2022 History general Narrative - Reported* Type Description [...] Hospitalization History rt. heart cath eRx Stout- [facility] 05/11/16 Hospitalization History Water retention/ [facility] 02/2017 Hospitalization [facility] 11/2017 Hospitalization History INFECTION IN LEFT SMALL TOE AND FOOT 11/2018 Hospitalization History [facility] -- ICU -- COPD, SMAL L WOUND ON LEFT FOOT 12/2019 Hospitalization History COPD [facility] [place] 12/2019 Hospitalization History Ankle wound 01/2020 Hospitalization History COVID 11/2020 Hospitalization History A-FIB, CHF, KIDNEY ISSUE S 03/2021 [facility] Other 06-08-2022 Evaluation note* Encounter Date Diagnosis Assessment Notes Treatment Notes Treatment Clinical Notes Apr, Type 2 diabetes mellitus with hyperglycemia (ICD-10 - E11.65) [facility] Other 06-06-2022 Evaluation note* Encounter Date Diagnosis Assessment Notes Treatment Notes Treatment Clinical Notes Apr, Acute on chronic systolic congestive heart failure (ICD-10 - I50.23) [facility] Other 05-23-2022 Progress note Author Ethan Cummings [facility] April 10, 2022 3:31pm Note Date/Time April 10, 2022 2:42p m [facility] [place] [place] [address] Hem/Onc Follow Up Note - OP Signed Patient: Adwoa Porter MR#: [id number] : 1955 Acct:[id number] Age/Sex: 66 / M Type: REG RCR [...] for coordination of care (as documented) and zyqh-ln-wgvn counseling of patient and/or family. 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 Follow up with your primary care physciain tomorrow for further testing. Go to the ER for worsening symptoms or concerns. [facility] Other 03-22-2022 Evaluation note* Encounter Date Diagnosis [...] overload caused by recurring apneas are controlled. [facility] Other 02-23-2022 Evaluation note* Encounter Date Diagnosis [...] (ICD-10 - I10) f/u with pcp Dec, manager long term care current use of insulin (ICD-10 - Z79.4) [...] was counseling done by myself, Tyesha JUDD. [facility] Other 01-10-2022 Evaluation note* Encounter Date Diagnosis Assessment Notes Treatment Notes Treatment Clinical Notes Nov, Type 2 diabetes mellitus with hyperglycemia (ICD-10 - E11.65) [facility] Other 12-29-2021 Evaluation note* Encounter Date Diagnosis [...] (ICD-10 - I10) f/u with pcp Oct, [facility] current use of insulin (ICD-10 - Z79.4) Oct, Vitamin B 12 deficiency (ICD-10 - E53.8) Oct, CKD (chronic kidney disease) stage 3, GFR 30-59 ml/min (ICD-10 - N18.3) keep f/u with nephrology Oct, Type 2 diabetes mellitus with diabetic neuropathy, unspecified (ICD-10 - E11.40) Oct, Hypoglycemia (ICD-10 - E16.2) BENEFIT FROM [employer] with alarms, ordered thru [employer]. discussion and merck handout on hypoglycemia and treament. Oct, BMI 35.0-35.9,adult (ICD-10 - Z68.35) Oct, Other I have spent 30 minutes with this patient and over 50% of the visit was counseling done by myself, Tyesha SALTER-Poonam. [facility] Other 11-17-2021 Evaluation note* Encounter Date Diagnosis [...] (ICD-10 - I10) f/u with pcp Sep, penitentiary current use of insulin (ICD-10 - Z79.4) [...] added weight loss benefit, increased glycemic control [facility] Other 11-08-2021 Evaluation note* Encounter Date Diagnosis [...] include pain management referral or physical therapy [facility] Other 05-31-2021 NoteMR#: [id number] I [facility] Pt. Name: Adwoa Porter Admitted: 04/12/2021 Discharged: 04/17/2021 Date of : 1955 Physician: Balbir Stubbs MD DISCHARGE SUMMARY PRINCIPAL DISCHARGE DIAGNOSES: 1. Rqkfp-oh-iauqmqv heart failure with reduced ejection fraction. 2. [...] heart failure. The patient was transferred to [facility] on a bumetanide infusion. He was [...] If strongly occurs, follow up with his church administrator as soon as possible. 3. The patient was strongly encouraged to consider acute rehab, however, he declined and insisted on returning to home. Total time spent on discharge coordination 45 minutes. Electronically Signed by: Balbir Stubbs MD 04/27/2021 01:19 P Balbir Stubbs MD Date Dict: 04/17/2021/03:44 P/Balbir Stubbs MD Date Trans: 04/18/2021 12:53 A/nena [id number] cc: Vinnie Stewart M.D. [facility] [address] [place] [id number] Lowell Craft M.D. [address] [facility] [address]XtzBar[facility] CenterDis[facility] summary Author Yakov To [facility] February 15, 2023 2:13pm Note Date/Time February 15, 2023 2:1 3pm [facility] [address] [place] [address] Discharge Summary Signed Patient: Adwoa Porter MR#: [id number] : 1955 Acct:[id number] Age/Sex: 67 / M Adm Date: 3 Loc: Room: [address] [place] [address]: Yakov To DO Copies to: [...] blood sugars and low potassium by his church administrator. Upon arrival to the hospital his blood [...] signed by Yakov To DO> 02/15/23 14[address] [facility] Work Phone: Discharge summary Author Swathi Burnham [facility] February 07, 2024 6:54pm Note Date/Time February 07, 2024 6:5 4pm [facility] [address] [place] [address] Discharge Summary Signed Patient: Adwoa Porter MR#: [id number] : 1955 Acct:[id number] Age/Sex: 68 / M Adm Date: 4 Loc: Room: [address] [place] [address]: Swathi Burnham MD Copies to: [...] medical problems, who was recently hospitalized at [facility] and discharged on January 22 to [facility] after being treated for septic shock secondary to cellulitis and left foot ulcer. Patient was discharged on IV antibiotic therapy including amikacin for polymicrobial growth from the wound VAC and PICC line. From [facility] he was sent to emergency room back to [place] for abnormal labs and worsening of kidney [...] also recommended to follow-up with podiatry at [place]. Vascular was consulted and permanent central venous [...] evaluated by PT OT and discharged to [facility] for furthertreatment. Hemodialysis sessions were arranged [...] Patient expressed understanding and was discharged to [facility] in a stable condition. The patient [...] 11:52 Discharge Plan Discharge Plan Patient Disposition: Custodial Facility Activity: Bed Rest Diet: Renal, Carb Count and Low-Sodium Additional Instructions: Custodial Facility to manage: - Full code - [...] <Electronically signed by Swathi Burnham MD> 02/07/24 4[address] [facility] Work Phone: Evaluation noteNo InformationNort Grouper Other Evaluation note* Diagnosis Onset Date Resolution Status Leukocytosis acute [facility] Work Phone: Evaluation note* Diagnosis Onset Date Resolution Status Leukocytosis acute SHIRA (acute kidney injury) [place] Cardiomyopathy acute Elevated serum creatinine [place] Elevated troponin acute Hyperglycemia acute Hypokalemia acute Hyponatremia acute Metabolic alkalosis with respiratory acidosis acute CKD (chronic kidney disease) stage 3, GFR 30-59 ml/min chronic Obstructive sleep apnea university 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 elie Paroxysmal A-fib chronic [facility] Work Phone: Evaluation noteNo assessment information available [facility] Work Phone: Evaluation note* Diagnosis Onset Date Resolution Status Acute kidney injury superimposed on CKD acute SHIRA (acute kidney injury) [place] Cellulitis of lower leg acut e Chronic ulcer of left foot with necrosis of muscle acute Controlled type 2 diabetes m ellitus with diabetic polyneuropathy acute Hyperkalemia acute [id number] acute Hyponatremia acute Infected wound acute Leukocytosis acute Metabolic acidosis acute Surgical wound, non healing acute Type 2 diabetes mellitus wit h diabetic chronic kidney disease acute 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 acute Diabetes chronic [facility] Work Phone: History and physical note Author Yakov To [facility] February 13, 2023 9:35pm Note Date/Time February 13, 2023 9:2 3pm [facility] [address] [place] [address] Hospitalist H&P Signed Patient: Adwoa Porter MR#: [id number] : 1955 Acct:[id number] Age/Sex: 67 / M Adm Date: 3 Loc: 4P Room: [address] [place] [address] Type: ADM IN Attending Dr: Yakov To [...] in the 500 range, he saw his church administrator today and because he knew his glucose [...] % (Auto) 17.7 % (.) 02/13/23 16:49 [place] % (Auto) 8.0 % (.) 02/13/23 16:49 Eos % (Auto) 2.9 % (.) 02/13/23 16:49 Baso % (Auto) 0.6 % (.) 02/13/23 16:49 Nucleat RBC Rel Count 0.1 /100 WBC (0-0.5) 02/13/23 16:49 Neut # (Auto) 8.5 x10E3/uL (1.8-7.7) H 02/13/23 16:49 Lymph # (Auto) 2.1 x10E3/uL (1.00-4.8) 02/13/23 16:49 [place] # (Auto) 1.0 x10E3/uL (0.0-0.8) H 02/13/23 [...] pH 6.0 (5.0-9.0) 02/13/23 15:49 Ur Specific [place] 1.018 (1.001-1.030) 02/13/23 15:49 Urine Protein Negative [...] diet ? Full code Documented By: Yakov oT, 02/13/232120 Signed By: <Electronically signed by Yakov To, DO> 02/13/232134 [facility] Work Phone: History general Narrative - [...] Hospitalization History rt. heart cath Rex Stout- [facility] 05/11/16 Hospitalization History Water retention/ [facility] 02/2017 Hospitalization History [facility] [place] 11/2017 Hospitalization History INFECTION IN LEFT SMALL TOE AND FOOT 11/2018 Hospitalization History [facility] -- ICU -- COPD, SMAL L WOUND ON LEFT FOOT 12/2019 Hospitalization History COPD [facility] [place] 12/2019 Hospitalization History Ankle wound 01/2020 Hospitalization History COVID 11/2020 Hospitalization History A-FIB, CHF, KIDNEY ISSUE S 03/2021 [facility] Other History general Narrative - Reported* Type [...] Hospitalization History rt. heart cath Rex Stout- [facility] 05/11/16 Hospitalization History Water retention/ [facility] 02/2017 Hospitalization History Observation-[facility] [place] 11/2017 Hospitalization History INFECTION IN LEFT SMALL TOE AND FOOT 11/2018 Hospitalization History [facility] -- ICU -- COPD, SMAL L WOUND ON LEFT FOOT 12/2019 Hospitalization History COPD [facility] [place] 12/2019 Hospitalization History Ankle wound 01/2020 Hospitalization History COVID 11/2020 Hospitalization History A-FIB, CHF, KIDNEY ISSUE S 03/2021 [facility] Other Hissejb general Narrative - Reported* Type Description Date [...] Medical History VERTIGO Medical History 04/28/2022 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 failure w/hypoxia, acute on systolic chronic HF Surgical History Cardiac catherization (07/2010) Surgical History AICD insertion (11/2010) Surgical History right sided heart cath - [facility] 10/2013 Surgical History appendectomy Surgical History rt [...] Hospitalization History rt. heart cath Rex Stout- [facility] 05/11/16 Hospitalization History Water retention/ [facility] 02/2017 Hospitalization History Observation-[facility] [place] 11/2017 Hospitalization History INFECTION IN LEFT SMALL TOE AND FOOT 11/2018 Hospitalization History [facility] -- ICU -- COPD, SMAL L WOUND ON LEFT FOOT 12/2019 Hospitalization History COPD [facility] [place] 12/2019 Hospitalization History Ankle wound 01/2020 Hospitalization History COVID 11/2020 Hospitalization History A-FIB, CHF, KIDNEY ISSUE S 03/2021 [facility] Other History general Narrative - Reported* Type [...] Medical History VERTIGO Medical History 04/28/2022 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 heart cath Rex Stout- [facility] 05/11/16 Hospitalization History Water retention/ [facility] 02/2017 Hospitalization History Observation-[facility] [place] 11/2017 Hospitalization History INFECTION IN LEFT SMALL TOE AND FOOT 11/2018 Hospitalization History [facility] -- ICU -- COPD, SMAL L WOUND ON LEFT FOOT 12/2019 Hospitalization History COPD [facility] [place] 12/2019 Hospitalization History Ankle wound 01/2020 Hospitalization History COVID 11/2020 Hospitalization History A-FIB, CHF, KIDNEY ISSUE S 03/2021 Hospitalization History [facility] 01/2023 [facility] Other History general Narrative - Reported* Type [...] Medical History VERTIGO Medical History 04/28/2022 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 failure w/hypoxia, acute on systolic chronic HF Medical History [facility]- r ight great toe bleeding (not [...] Hospitalization History rt. heart cath Rex Stout- [facility] 05/11/16 Hospitalization History Water retention/ [facility] 02/2017 Hospitalization History Observation-[facility] [place] 11/2017 Hospitalization History INFECTION IN LEFT SMALL TOE AND FOOT 11/2018 Hospitalization History [facility] -- ICU -- COPD, SMAL L WOUND ON LEFT FOOT 12/2019 Hospitalization History COPD [facility] [place] 12/2019 Hospitalization History Ankle wound 01/2020 Hospitalization History COVID 11/2020 Hospitalization History A-FIB, CHF, KIDNEY ISSUE S 03/2021 Hospitalization History [facility] 01/2023 Hospitalization History [facility] discha rged 03-27-2023 [facility] Other History general Narrative - Reported* Type [...] Medical History VERTIGO Medical History 04/28/2022 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 failure w/hypoxia, acute on systolic chronic HF Medical History [facility]- r ight great toe bleeding (not stopping) Medical History pneumonia-[facility] 06-05 Medical History [facility]-7-2023 Surgical History Cardiac catherization (07/2010) Surgical History AICD insertion (11/2010) Surgical History right sided heart cath - [facility] 10/2013 Surgical History appendectomy Surgical History rt [...] Hospitalization History rt. heart cath Rex Stout- [facility] 05/11/16 Hospitalization History Water retention/ [facility] 02/2017 Hospitalization History Observation-[facility] [place] 11/2017 Hospitalization History INFECTION IN LEFT SMALL TOE AND FOOT 11/2018 Hospitalization History [facility] -- ICU -- COPD, SMAL L WOUND ON LEFT FOOT 12/2019 Hospitalization History COPD [facility] [place] 12/2019 Hospitalization History Ankle wound 01/2020 Hospitalization History COVID 11/2020 Hospitalization History A-FIB, CHF, KIDNEY ISSUE S 03/2021 Hospitalization History [facility] 01/2023 Hospitalization History [facility] discha rged 03-27-2023 Hospitalization History [facility] x2 7-2 023 [facility] Other History general Narrative - Reported* Type [...] Medical History VERTIGO Medical History 04/28/2022 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 failure w/hypoxia, acute on systolic chronic HF Medical History [facility]- r ight great toe bleeding (not stopping) Medical History pneumonia-[facility] 06-05 Medical History [facility]-7-2023 Medical History [id number]-[facility] Surgical History Cardiac catherization (07/2010) Surgical History AICD insertion (11/2010) Surgical History right sided heart cath - [facility] 10/2013 Surgical History appendectomy Surgical History rt [...] Hospitalization History rt. heart cath Rex Stout- [facility] 05/11/16 Hospitalization History Water retention/ [facility] 02/2017 Hospitalization History Observation-[facility] [place] 11/2017 Hospitalization History INFECTION IN LEFT SMALL TOE AND FOOT 11/2018 Hospitalization History [facility] -- ICU -- COPD, SMAL L WOUND ON LEFT FOOT 12/2019 Hospitalization History COPD [facility] [place] 12/2019 Hospitalization History Ankle wound 01/2020 Hospitalization History COVID 11/2020 Hospitalization History A-FIB, CHF, KIDNEY ISSUE S 03/2021 Hospitalization History [facility] 01/2023 Hospitalization History [facility] discha rged 03-27-2023 Hospitalization History [facility] x2 7-2 023 Hospitalization History [facility] 10-2 023 [facility] Other History general Narrative - Reported* Type [...] Medical History V[facility]IGO Medical History 04/28/2022 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 failure w/hypoxia, acute on systolic chronic HF Medical History [facility]- r ight great toe bleeding (not stopping) Medical History pneumonia-[facility] 06-05 Medical History [facility]-7-2023 Medical History [id number]-[facility] Surgical History Cardiac catherization (07/2010) Surgical [...] History rt. heart cath D Addy Khanel- [facility] 05/11/16 Hospitalization History Water retention/ [facility] 02/2017 Hospitalization History Observation-[facility] 11/2017 Hospitalization History INFECTION IN LEFT SMALL TOE AND FOOT 11/2018 Hospitalization History [facility] -- ICU -- COPD, SMAL L WOUND ON LEFT FOOT 12/2019 Hospitalization History COPD [facility] [place] 12/2019 Hospitalization History Ankle wound 01/2020 Hospitalization History COVID 11/2020 Hospitalization History A-FIB, CHF, KIDNEY ISSUE S 03/2021 Hospitalization History [facility] 01/2023 Hospitalization History [facility] discha rged 03-27-2023 Hospitalization History [facility] x2 7-2 023 Hospitalization History [facility] - 023 Hospitalization History [facility] rib fx left Hospitalization History [facility] -pnemo jennifer [facility] Other History general Narrative - Reported* Type [...] Medical History V[facility]IGO Medical History 04/28/2022 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 failure w/hypoxia, acute on systolic chronic HF Medical History [facility]- r ight great toe bleeding (not stopping) Medical History pneumonia-[facility] 06-05 Medical History [facility]-7-2023 Medical History [id number]-[facility] Medical History NON RESPONSIVE X 2 IN THE LAST 6 WEEKS Surgical History Cardiac catherization (07/2010) Surgical History AICD insertion (11/2010) Surgical History right sided heart cath - [facility] 10/2013 Surgical History appendectomy Surgical History rt [...] Hospitalization History rt. heart cath Rex Stout- [facility] 05/11/16 Hospitalization History Water retention/ [facility] 02/2017 Hospitalization History Observation-[facility] [place] 11/2017 Hospitalization History INFECTION IN LEFT SMALL TOE AND FOOT 11/2018 Hospitalization History [facility] -- ICU -- COPD, SMAL L WOUND ON LEFT FOOT 12/2019 Hospitalization History COPD [facility] [place] 12/2019 Hospitalization History Ankle wound 01/2020 Hospitalization History COVID 11/2020 Hospitalization History A-FIB, CHF, KIDNEY ISSUE S 03/2021 Hospitalization History [facility] 01/2023 Hospitalization History [facility] discha rged 03-27-2023 Hospitalization History [facility] x2 7-2 023 Hospitalization History [facility] 10-2 023 Hospitalization History [facility] rib fx left Hospitalization History [facility] -pnemo jennifer [facility] Other History general Narrative - Reported* Type [...] Medical History V[facility]IGO Medical History 04/28/2022 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 failure w/hypoxia, acute on systolic chronic HF Medical History [facility]- r ight great toe bleeding (not stopping) Medical History pneumonia-[facility] 06-05 Medical History [facility]-7-2023 Medical History [id number]-[facility] Medical History NON RESPONSIVE X 2 IN THE LAST 6 WEEKS Surgical History Cardiac catherization (07/2010) Surgical History AICD insertion (11/2010) Surgical History right sided heart cath - [facility] 10/2013 Surgical History appendectomy Surgical History rt heart cath 05/11/16 Surgical History pacemaker 07/2016 Surgical History SKIN GRAFT-FROM LEFT LEG TO LEF T FOOT 10/2018 Surgical History LEFT SMALL TOE AMPUTATION WITH SOME FOOT BONE 11/2018 Surgical History COLONOSCOPY AND EGD [facility] Surgical History amputation left fifth toe Surgical History Ankle I/D LEFT 01/2020 Surgical History Left heel skin graft 03/29/2020 Surgical History SKIN GRAFT TO LEFT FOOT 03/2020 Surgical History CATARACT REMOVED ON RIGHT EYE Surgical History CATARACT REMOVED FROM LEFT EYE 06/2021 Hospitalization History see surgical hx Hospitalization History rt. heart cath Rex Stout- [facility] 05/11/16 Hospitalization History Water retention/ [facility] 02/2017 Hospitalization History Observation-[facility] [place] 11/2017 Hospitalization History INFECTION IN LEFT SMALL TOE AND FOOT 11/2018 Hospitalization History [facility] -- ICU -- COPD, SMAL L WOUND ON LEFT FOOT 12/2019 Hospitalization History COPD [facility] [place] 12/2019 Hospitalization History Ankle wound 01/2020 Hospitalization History COVID 11/2020 Hospitalization History A-FIB, CHF, KIDNEY ISSUE S 03/2021 Hospitalization History [facility] 01/2023 Hospitalization History [facility] discha rged 03-27-2023 Hospitalization History [facility] x2 7-2 023 Hospitalization History [facility] 08-20 023 Hospitalization History [facility] rib fx left Hospitalization History [facility] -pnemo jennifer [facility] Other progress note Author Ethan Cummings [facility] December 04, 2022 1:47pm Note Date/Time December 04, 2022 1 :44pm [facility] at [address] [address] Hem/Onc Follow Up Note - OP Signed Patient: Adwoa Porter MR#: [id number] : 1955 Acct:[id number] Age/Sex: 67 / M Type: REG RCR [...] hs BCR/ABL was negative. Recent hospitalization at [place] for COVID PNA. He had also a [...] for coordination of care (as documented) and [id number] counseling of patient and/or family. [facility] - Medical History Medical History: [...] % (Auto) 67.1, Lymph % (Auto) 20.5, [place] % (Auto) 8.2, Eos % (Auto) 3.5, Baso % (Auto) 0.7, Nucleat RBC Rel Count 0.1, Neut # (Auto) 7.9 H, Lymph # (Auto) 2.4, [place] # (Auto) 1.0 H, Eos # (Auto) [...] by Ethan Cummings II DO> 12/04/[address] [facility] Work Phone: Advance Directives No Advanced Directives Records Found Advance Directive Response Recorded Date/ Time Advance Directives No July 2:42pm Advance Directive Response Recorded Date/ Time Advance Directives No July 1:42pm Chief Complaint and Reason for Visit Chief Complaint Right great toe woun d Reason for Visit Cellulitis of left t oe Controlled type 2 diabetes mellitus with diabetic polyneuropathy [id number] Chief Complaint DM Obstructive sleep apnea Chief Complaint DM Leukocytosis Reason for Visit Leukocytosis Chief Complaint Leukocytosis DM sent by [employer] Reason for Visit Leukocytosis SHIRA (acute kidney injury) Cardiomyopathy Elevated serum creatinine Elevated troponin Hyperglycemia Hypokalemia Hyponatremia Metabolic alkalosis with respiratory acidosis CKD (chronic kidney disease) stage 3, GFR 30-59 ml/min Obstructive sleep apnea Paroxysmal A-fib Chief Complaint Leukocytosis DM sent by [employer] E87.6 I48.0 Reason for Visit Leukocytosis SHIRA [...] 2 diabetes mellitus with diabetic polyneuropathy Hyperkalemia [id number] Hyponatremia Infected wound Leukocytosis Metabolic acidosis Surgical wound, non healing Type 2 diabetes mellitus with diabetic chronic kidney disease 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 Diabetes Assessments Diagnosis Onset Date Resolution Status Cellulitis of left toe acute Controlled type 2 diabetes m ellitus with diabetic polyneuropathy acute [id number] acute Family History No Family History Records [...] burn degree, initial encounter (T23.022A) Referral Organization [facility] Urgent Care [facility] [address] Referring Provider First Name Gisselle Referring Provider Last Name Noble Referring Provider Specialty Nurse Phan ruiz Referred Organization [facility] Referred Address [address], [place],[address] Referred Provider Specialty Wound Care Referral Priority Routine General Notes Lennie Mcghee Ayo 022 12:46:37 PM >Received today and waiting for office notes to be locked before sending referral Lennie Mcghee 10/03/2022 03:00:03 PM >Referral was fax Clinical Notes Office [phone] Reason * FU 02/13 lumbar arthritis/pain - [place] Diagnosis 1 Lumbar and sacral ar thritis (M48.9) Referral Organization [facility] Family Medicin e Tracie Referring Provider First Name Vinnie Referring Provider Last Name Osvaldo Referring Provider Specialty Family Prac yamil Referred Organization [facility] Referred Address [address], [place],[address] Referred Provider Specialty Pain Medicin e Referral Priority Routine General Notes Doris Modi 12:58:37 PM > referral received and faxed Additional Source Comments (unrecognized sect ion and content) No Status Records FoundNo Status Records FoundNo Status Records FoundNo Status Records FoundNo Status Records FoundNo Status Records FoundNo Status Records Found INFORMATION SOURCE (unrecogn ized section and content) DATE CREATED AUTHOR 11/17/2020 [facility] DATE CREATED AUTHOR AUTHOR'S ORGANIZ ATION 03/05/2022 [facility] DATE CREATED AUTHOR AUTHOR'S ORGANIZ ATION 04/27/2023 [facility] DATE CREATED AUTHOR AUTHOR'S ORGANIZ ATION 09/03/2023 [facility] DATE CREATED AUTHOR AUTHOR'S ORGANIZ ATION 12/23/2023 [facility] DATE CREATED AUTHOR AUTHOR'S ORGANIZ ATION 01/26/2024 [facility] DATE CREATED AUTHOR AUTHOR'S ORGANIZ ATION 02/14/2024 [facility] REASON FOR VISIT (unrecogniz ed section and content) 4 month Follow upportable co ncentratorDM, Needs to reapply for PAP, Type 2 ID[facility], Patient will mail PAP back when he is done 10-05-21DS [employer] RefillAPPT CANCELLEDDS Voicemail/ Diabetic ShoesXRAY RESULTSappt question-DS Patient Assistance Renewal/APPROVEDDM 6 week f/u, Type 2 IDDM, [facility] FOLLOW UP, [facility] Visit CodesMED REFILLDS please call/ Diabetic shoes [...] F/U - pneumonia, SOB, Pt was at [facility], He said he went in on 06/12 and was dc 06/16, He said he is feeling betterDS DM appt CxFallrefillDS Sensor refillDM, DM, DM follow up, Type 2 IDDM, LUCAS 2, [facility] Visit CodesD/Ctrouble breathingrefillDS Returning clinic's callFINGER PAINDS please callsickCKD and HTNburns left handrefillrefillDS Needs [facility] Referral Updatemed refillHosp d/c Farx[facility] and JardianceD/C [facility] reviewrefillDM follow up, DM, DM, DM follow up, Type 2 IDDM, LUCAS 2, [facility] Visit Codes, In-patient [facility]-10/18-10/24/2022, [facility] Visit CodesconsultDeclined servicesStein Hospice ReferraldownloadStein Hospice ReferralNo [id number] requestDS PAP Basaglar/TrulicityDS VoicemailrefillHOSPITAL VISIT, Acute on chronic systolic CHFrefillupdatefall, bruise, lump on back near L shoulderbalance issuesrefillHOSPITAL FOLLOW [facility]PITALfallNo Informationrefillbruising all over, difficulty walkingDS N/S [...] 2024 End: February 05, 2024 Selin George 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 [facility] [employer] [facility]. provides no warranty or guarantee of the accuracy or completeness of information in this document.
[2024-02-19 08:31] LABS: Basophils Percent Auto 0.2 % (0.2-2.0); Eosinophils Absolute Auto 0.3 10^3/uL (0.0-0.7); Eosinophils Percent Auto 2.7 % (0.9-7.0); Immature Granulocytes Abs Auto 0.04 10^3/uL (0.00-0.03); Immature Granulocytes Pct Auto 0.3 % (0.0-0.5); Lymphocytes Absolute Auto 1.1 10^3/uL (1.2-3.8); Lymphocytes Percent Auto 8.8 % (20.5-60.0); Mean Corpuscular HGB Conc 31.7 g/dL (29.9-35.2); Mean Corpuscular Hemoglobin 27.4 pg (25.9-34.0); Mean Corpuscular Volume 86.5 fL (80.0-94.0); Monocytes Absolute Auto 0.4 10^3/uL (0.3-0.8); Neutrophils Absolute Auto 10.3 10^3/uL (1.4-6.5); Platelet Count 126 10^3/uL (150-450); Red Blood Count 2.37 10^6/uL (4.70-6.10); Red Cell Distribution Width 16.8 % (11.0-15.0); White Blood Count 12.1 10^3/uL (4.0-11.0)
[2024-02-19 08:38] LABS: Hematocrit 20.5 % (42.0-54.0); Hemoglobin 6.5 g/dL (14.0-18.0)
[2024-02-19 08:46] LABS: Estimated GFR (African America 14 (>=60); Estimated GFR (Non-African Ame 12 (>=60)
== END 2024-02-19 08:17 | disposition home or self-care (01) ==
LOC: LAB 08:16
PROVIDERS: PCP Family Medicine; Visit Provider Family Medicine
DX: A41.9 Sepsis, unspecified organism (principal)
CPT/HCPCS: 36415; 82565; 84520; 85025

== ENCOUNTER 2024-02-25 02:33 | Outpatient (REF) | payer MEDICARE, SELFPAY ==
--- OUTSIDE RECORDS SUMMARY | 2024-02-25 02:39 | XMS_ITS | CCD ---
Author Organization [facility] Care Team Providers Care Wood Panel Inspector Name Role Phone Vinnie Stewart Primary Care Provider Unavailab Valentin Gomez (WND) Attending Provider Unavaila Vinnie Lemon Primary Care Provider [phone] Nicolette Manzano Attending Provider [phone] Ivon Kat Attending Provider [phone] ND Procedure Practitioner Unavailab VINNIE Nash Primary Care Unavailable LOWELL CRAFT Referring Unavailable ANNABELLE BOYD Surgeon Unavailable CECILE MAJOR Admitting Unavailable CECILE MAJOR Attending Unavailable ND Procedure Practitioner Unavailab BALBIR Cardenas Surgeon Unavailable Vinnie Stewart Unavailable Vinnie Stewart Unavailable Brittnee Spain Unavailable Ruthie Guzman Unavailable Balbir Ba Unavailable Simba Kaufman Unavailable Gisselle Dickey Unavailable DO Vinnie Stewart Primary Care Provider CHARISSE Manzano Attending Provider [phone] DO Ethan Cummings II Attending Provider [phone] MD Simba Kaufman Referring Provider DO Vinnie Stewart Primary Care Provider DO Ethan Cummings II Attending Provider MD Simba Kaufman Referring Provider CHARISSE Manzano Attending Provider DO Alejandro Holliday Emergency Provider [phone] DO Yakov To Admit Provider DO Yakov To Attending Provider SHIRLEY, BRYCE Admitting Unavailable SHIRLEY, BRYCE Attending Unavailable SHIRLEY, BRYCE Consulting [facility] Care [facility]available FAWWAD, BROWN H Attending Unavailable FAWWAD, BROWN H Admitting Unavailable [facility] Primary Care Unavailable FAWWAD, BROWN H Admitting Unavailable FAWWAD, BROWN H Attending Unavailable [facility] Primary Care Unavailable SEPIDEH ., NIK Admitting Unavailable SEPIDEH ., NIK Attending Unavailable JACOBSON ., DR PROMISE Proctor Consulting Unavailable [facility] Primary Care Unavailable PAY ., DR TOM Consulting Unavailable SUSHIL STOUT Consulting Unavailable AHDOOTSTU Consulting Unavailable CAILIN, MASSIMO Consulting Unavailable PRUITTMICKY Consulting Unavailable SISTER, MURTAZA Consulting Unavailable SEPIDEH ., NIK Consulting Unavailable [facility] Primary Care Unavailable SHANTANU ., DR SOTELO Consulting Unavailable HOY ., DR SOTELO Admitting Unavailable HOY ., DR SOTELO Attending Unavailable ZIEBER, DR BIANCA Sorto Consulting Unavailable SONIDO VAUGHN Consulting Unavailable AUSTIN, BINOR Consulting Unavailable ALEK, AMAR Consulting Unavailable ADRIEL VIRGEN Consulting Unavailable FAWWAD, BROWN H Attending Unavailable FAWWAD, BROWN H Admitting Unavailable [facility] Primary Care Unavailable FAWWAD, BROWN H Attending Unavailable FAWWAD, BROWN H Admitting Unavailable [facility] Primary Care Unavailable CAILIN, MASSIMO Consulting Unavailable CAILIN, MASSIMO Admitting Unavailable CAILIN, MASSIMO Attending Unavailable [facility] Primary Care Unavailable YEARTY, KODI Consulting Unavailable YEARTY, KODI Admitting Unavailable STEPHANIE MYERSARA Attending Unavailable [facility] Primary Care Unavailable MISC, DR YEN Consulting Unavailable MISC, DR YEN Admitting Unavailable MISC, DR YEN Attending Unavailable [facility] Primary Care Unavailable JAC, SIMBA Consulting Unavailable JAC, SIMBA Admitting Unavailable STEWART, VINNIE Primary Care Unavailable JACTJUL Attending Unavailable JAC, SIMBA Admitting Unavailable JAC, SIMBA Attending Unavailable [facility] Primary Care Unavailable JAC, SIMBA Consulting Unavailable FAWWAD, BROWN H Attending Unavailable FAWWAD, BROWN H Admitting Unavailable STEWART, CHIGNIK Primary Care Unavailable FAWWAD, BROWN H Admitting Unavailable FAWWAD, BROWN H Attending Unavailable [facility] Primary Care Unavailable FAWWAD, BROWN H Attending Unavailable FAWWAD, BROWN H Admitting Unavailable [facility] Primary Care Unavailable YEARTY, KODI Admitting Unavailable YEARTY, KODI Attending Unavailable STEWART, CHIGNIK Primary Care Unavailable YEARTY, KODI Consulting Unavailable CAILIN, MASSIMO Admitting Unavailable CAILIN, MASSIMO Attending Unavailable STEWART, CHIGNIK Primary Care Unavailable CAILIN, MASSIMO Consulting Unavailable EMA ., CANDELARIA Admitting Unavailable EMA Olson, CANDELARIA Attending Unavailable JORGE BUCKNER Consulting Unavailable [facility] Primary Care Unavailable EMA Olson, CANDELARIA Consulting Unavailable FAWWAD, BROWN H Attending Unavailable [facility] Primary Care Unavailable FAWWAD, BROWN H Admitting Unavailable DR IMTIAZ DUVAL Consulting Unavailable FAWWAD, BROWN H Consulting Unavailable SOFÍA GASTON Consulting Unavailable MIRYAM MENDEZ Consulting Unavailable JOSE STRONG Consulting Unavailable BERMUDEZ, ALLIE Consulting Unavailable FAWWAD, BROWN H Admitting Unavailable FAWWAD, BROWN H [facility]ending [facility] FAWWAD, BROWN H Attending Unavailable FAWWAD, BROWN H Admitting Unavailable [facility] Primary Care Unavailable FAWWAD, BROWN H Admitting Unavailable FAWWAD, BROWN H Attending [facility] Unavailable HIGHLANDER, PETER D Admitting Unavailable HIGHLANDER, PETER D Attending [facility] Care Unavailable HIGHLANDER, PETER D Admitting Unavailable HIGHLANDER, PETER D Attending [facility] Care Unavailable HIGHLANDER, PETER D Admitting Unavailable HIGHLANDER, PETER D Attending Unavailable STEWART, CHIGNIK Primary Care Unavailable HIGHLANDER, PETER D Admitting Unavailable HIGHLANDER, PETER D Attending Unavailable STEWART, CHIGNIK Primary Care Unavailable HIGHLANDER, PETER D Admitting Unavailable HIGHLANDER, PETER D Attending Unavailable [facility] Primary Care Unavailable SADE, DR BIANCA Sorto Consulting Unavailable PAY ., DR TOM Admitting Unavailable PAY ., DR TOM Attending Unavailable [facility] Primary Care Unavailable PAY ., DR TOM Consulting Unavailable FAWWAD, BROWN H Admitting Unavailable FAWWAD, BROWN H Attending Unavailable STEWART, VINNIE Primary Care Unavailable YANKTON, DR BALBIR Thorpe Consulting Unavailable ZIEBER, DR [...] DO Vinnie Stewart Primary Care Provider Mapus, GAMB CUTTER Nicolette Wright Attending Provider DAHIANA BELCHER Attending Unavailable SUSHIL STOUT Attending Unavailable FATIMAH NARVAEZ Referring Unavailable BRYCE WATSON Attending Unavailable MASSIMO SWAN Attending Unavailable SUSHIL STOUT Attending Unavailable SHIRLEY, BRYCE Attending Unavailable BRYCE WATSON Attending Unavailable SUSHIL STOUT Attending Unavailable DO Vinnie Stewart Primary Care Provider Mapus, GAMB CUTTER Tondra K Attending Provider [phone] NELLY Arroyo Attending Provider DO Farhan Hudson Admit Provider [phone] MD Farhan Schofield Other Provider MD Lia Law Other Provider NELLY Valle Other Provider [phone] MD Raul Bravo Other Provider KATIE Bailey Other Provider Unavailable MD Rodrick Herndon Other Provider KINSEY George Other Provider MD Shaheed Bryan Other Provider MD Swathi Burnham Attending Provider [phone] Santi [facility] Nancy Proctor Emergency Provider MD Butch Rodney Admit Provider MD Butch Rodney Attending Provider MD Sebastian Granger Other Provider [phone] Yakov To Attending Unavailable Vinnie Stewart Primary Care Unavailable Yakov To Admitting Unavailable Lia Law Consulting Unavailable Vinnie Stewart Primary Care Unavailable Butch Rodney Admitting Unavailable Butch Rodney Attending Unavailable Sebastian Granger Consulting Unavailable Swathi Burnham Attending Unavailable Farhan Schofield Consulting Unavailable Vinnie Stewart Primary Care Unavailable Farhan Hudson Admitting Unavailable Lia Law Consulting Unavailable Valentin Valle Consulting Unavailable Raul Bravo Consulting Unavailabl e Veronica Bailey Consulting Unavailable Rodrick Herndon Consulting Unavailable Selin George Consulting Unavailable Shaheed Bryan Consulting Unavailable Jorge Arroyo Attending Unavailable Jorge Arroyo Admitting Unavailable Vinnie Stewart Primary Care Unavailable Nicolette Manzano Admitting Unavailable Nicolette Manzano K Attending Unavailable Unavailable Unavailable Unavailable Allergies Allergy Classification Reported Allergen(s) Allergy Type Date of Onset Reaction(s) Facility (11 sources) Angiotensin Converting Enzyme (Lupis) Inhibitors; Translations: [LUPIS Inhibitors] Propensity to adverse reactions 2 Cough [facility] Repository (20 sources) Angiotensin Converting Enzyme (Lupis) Inhibitors Propensity to adverse reactions cough [place] Electronic Other Medications Current Medications Medication Drug Class(es) Dates Sig (Normalized) Sig (Original) acetaminophen 325 mg / HYDROcodone bitartrate 5 mg oral tablet (20 sources) Opioid Agonist Start: 02-19-2024 End: 02-21-2024 take 1 tablet by mouth every eight hours Hydrocodone-Aceta minophen Active 1 TAB PO Every 8 hours 10 February 21, 2024 Start: 12-20-2023 take 1 tablet by cedrick th every [...] 30 day(s) May, Active Start: 04-03-2022 End: 02-19-2024 take 1 tablet by mouth three times daily Hydrocodone-Acetaminophen Discontinued 1 TAB PO Three times daily 07 22February 05, 2024 February 08, 2024 8:00am Start: 01-27-2022 take 1 tablet by cedrick [...] 8 hrs for 30 day(s) Sep, Active [id number] actuat albuterol 0.09 mg/actuat metered dose [...] in halation every four hours as needed apixaban 2.5 mg oral tablet (13 sources) Factor Xa Inhibitor Start: 02-05-2024 take [...] aspirin 81 mg delayed release oral tablet (18 sources) Platelet Aggregation Inhibitor, Nonsteroidal Anti-inflammatory Drug [...] puff(s) by in halation twice daily bumetanide 2 mg oral tablet (20 sources) Loop Diuretic Start: 02-19-2024 take 2 mg by mouth twice daily Bumetanide Active 2 MG PO Twice daily February 19, 2024 12:00am Start: 04-10-2022 End: 02-05-2024 take 2 mg [...] 03-02-2022 take 1 capsule by mo [facility] every eight hours Cephalexin 500 MG 1 capsule Orally tid for 7 days Feb, Active Start: 01-26-2022 take 1 capsule by mo [facility] every twelve hours Cephalexin 500 MG 1 capsule Orally bid for 10 day(s) Jan, Active Start: 01-10-2022 take 1 capsule by mo [facility] every eight hours Cephalexin 500 MG 1 capsule Orally tid for 7 days Dec, Active Start: 12-09-2021 take 1 capsule by mo [facility] every twelve hours Cephalexin 500 MG 1 capsule Orally bid for 10 day(s) Nov, Active Start: 07-31-2019 End: 12-04-2019 take 500 mg by mouth three times daily Cephalexin Discontinued 500 MG PO Three times daily July 31, 2019 12:00am December 04, 2019 11:49am ciprofloxacin 500 mg oral tablet (7 sources) Quinolone Antimicrobial take 1 tablet by mouth every twelve hours Ciprofloxacin HCl 500 MG 1 tablet Orally every 12 hrs Active clindamycin 300 mg oral capsule (7 sources) Lincosamide Antibacterial take 1 capsule by mouth every six hours Clindamycin HCl 300 MG 1 capsule Orally EVERY 6 HRS Active collagenase 0.25 unt/mg topical ointment (2 sources) Collagen-specific Enzyme Start: 02-19-20 Collagenase Clostridium Histo. (Santyl) 250 unit/gram ointment Active 1 APPLIC TOPICAL Daily February 19, 2024 12:00am Diabetic Shoes (20 sources) Start: 11-22-19 [...] Hyclate Discontinued 100 MG PO Twice daily 20 December 04, 2019 1:00am December 04, 2019 1:04pm [...] Patient assistance initated by Dr. Stewart Active folic acid 1 mg oral tablet (1 source) Start: 02-21-2024 take 1 mg by mouth once daily Folic Acid Active 1 MG PO Daily February 21, 2024 12:00am FreeStyle Lucas 14 Day Sensor - (20 sources) Start: 04-27-2022 FreeStyle Libr e 14 Day Sensor - as directed SQ change every 14 days for 28 days DX E11.65 Apr, Active FreeStyle Lucas 2 [place] - (20 sources) FreeStyle Lucas 2 [place] - USE READER TO TEST BLOOD SUGAR DIRECTED DAILY for 365 Active FreeStyle Lucas 2 [place] - USE DIRECTED DAILY for 365 Active FreeStyle Lucas 2 [place] Sys tm - (20 sources) FreeStyle Lucas 2 [place] Systm - as directed SQ Daily Active FreeStyle Lucas 2 [place] Systm - as directed SQ Daily for [...] and prn for 84 days Active gabapentin 100 mg oral capsule (20 sources) Anti-epileptic Agent Start: 02-19-2024 take 200 mg by mouth twice daily Gabapentin Active 200 MG PO Twice daily February 19, 2024 12:00am Start: 02-19-2024 take 100 mg by mouth twice daily Gabapentin Active 100 MG PO Twice daily February 19, 2024 12:00am Start: 02-05-2024 End: 02-19-2024 take 200 mg by mouth twice daily Gabapentin Discontinued 200 MG PO Twice daily February 05, 2024 4:31pm February 19, 2024 1:24pm Start: 07-09-2020 End: 02-05-2024 take 400 mg [...] directed as directed as directed Feb, Active Heparin (Porcine) In 0.9% Na cl (2 sources) Start: 02-19-2024 Heparin (Porci ne) In 0.9% Nacl Active 10 UNIT IV Daily February 19, 2024 12:00am heparin lock flush Humalog KwikPen 200 200 Units/ML (20 sources) [...] oral tablet (20 sources) Arteriolar Vasodilator Start: 04-10-2022 take 50 mg by mouth twice daily Hydralazine Active 50 MG PO Twice daily April 10, 2022 12:00am Start: 02-24-2019 End: 04-10-2022 take 50 mg by mouth three times daily Hydralazine Discontinued 50 MG PO Three times daily February 24, 2019 12:00am April 10, 2022 3:04pm Insulin Aspart U-100 (Novolo g Flexpen U-100 Insulin) 100 unit/mL (3 mL) Insulin Pen (5 sources) Start: 02-19-2024 Insulin Aspart U-100 (Novolog Flexpen U-100 Insulin) 100 unit/mL (3 mL) Insulin Pen Active 1 sliding scale dose SUBCUT 3X/Day with meals and bedtime February 19, 2024 12:00am 150-199 - 1 unit 200-249 2 units 250-299 3 units 300-349 4 units 350-400 5 units > 400 call Start: 02-05-2024 End: 02-19-2024 inject 1 [IU] by subcutaneous injection once at mealtime Insulin Aspart U-100 (Novolog Flexpen U-100 Insulin) 100 unit/mL (3 mL) Insulin Pen Discontinued 1 UNIT SUBCUT 3X/Day with meals and bedtime February 05, 2024 12:00am February 19, 2024 1:30pm see protocol Start: 02-05-2024 inject 1 [IU] by sub cutaneous injection once at mealtime Insulin Aspart U-100 (Novolog Flexpen U-100 Insulin) 100 unit/mL (3 mL) Insulin Pen Active 1 UNIT SUBCUT 3X/Day with meals and bedtime 0 February 05, 2024 12:00am see protocol 3 ml insulin degludec 200 unt/ml pen injector (20 sources) Insulin Analog Start: 09-18-2023 Tresiba FlexTo uch 200 UNIT/ML 36 u Subcutaneous daily for 90 days transition from [facility] Aug, Active inject 50 [IU] [...] units SQ bid Active Insulin, Aspart, Human (19 sources) Insulin Analog Start: 12-04-2019 Insulin Aspart U-100 Active 1 sliding scale dose SUBCUT Use as Directed December 04, 2019 12:02pm Start: 12-04-2019 Insulin Aspart U-100 Active 1 sliding scale dose Subcutaneous Use as Directed December 04, 2019 12:02pm Start: 12-04-2019 End: 04-10-2022 Insulin Aspart U-100 Discont inued sliding scale dose SUBCUT Use as Directed [...] the morning linezolid 600 mg oral tablet (6 sources) Oxazolidinone Antibacterial Start: 02-05-2024 take 600 mg by mouth twice daily Linezolid Active 600 MG PO Twice daily 70 35 February 05, 2024 12:00am Start: 01-29-2024 End: 02-05-2024 take 600 mg intravenously every twelve hours Linezolid In Dextrose 5% Discontinued 600 MG IV Every 12 hours January 29, 2024 12:00am February 05, 2024 4:36pm midodrine hydrochloride 5 mg oral tablet (1 source) alpha-Adrenergic Agonist Start: 02-21-2024 Midod rine Active 10 MG PO MOWEFR 1 February 21, 2024 12:00am nitroglycerin 0.4 mg sublingual tablet (20 sources) Nitrate Vasodilator Start: 04-10-2022 Nitroglyce rin (Nitrostat) 0.4 mg Tablet, Sublingual Active 0.4 MG SUBLINGUAL Every 5 minutes x 3 doses April 10, 2022 12:00am Start: 02-24-2019 End: 02-09-2020 Nitroglycerin Discontinued 0 .4 MG SUBLINGUAL every 5 to 15 minutes February 24, 2019 12:00am February 09, 2020 12:49pm Nitrostat 0.4 MG 1 tablet under the tongue Sublingual X1 prn chest pain, may repeat X1 in 5min PRN Active nystatin 100 unt/mg topical powder (3 sources) Polyene Antifungal Start: 02-05-2024 Nystatin (Nystop) 100,000 unit/gram Powder Active 1 APPLIC TOPICAL Four times daily 0 February 05, 2024 12:00am omeprazole 20 mg delayed release oral capsule (2 sources) Proton Pump Inhibitor Start: 02-19-2024 take 20 mg by mouth once daily Omeprazole Active 20 MG PO Daily February 19, 2024 12:00am Oxygen Concentrator (20 sources) Start: 12-19-2022 Oxygen Concent rator Nov, Active Start: 10-10-2021 Oxygen Concent rator Sep, Active predniSONE 50 mg oral tablet (20 sources) Start: 12-22-2022 take 1 tablet by cedrick th every twenty-four hours predniSONE 50 MG 1 tablet Orally Once a day for 5 day(s) Dec, Active Start: 05-30-2022 take 2 tablets by mo [facility] every twenty-four hours predniSONE 20 [...] Active [place] - (20 sources) Start: 09-17-2023 Jose - ceferino bender Aug, Active Completed/Discontinued Medications Medication Drug Class(es) Dates Sig (Normalized) Sig (Original) acetaminophen 300 mg / codeine phosphate 30 mg oral tablet (18 sources) Opioid Agonist Start: 02-09-2020 End: 04-10-2022 [...] / ipratropium bromide 0.167 mg/ml inhalation solution (19 sources) Anticholinergic, beta2-Adrenergic Agonist Start: 02-24-2019 End: 07-31-2019 Ipratropium-Albuterol Discontinued 3 ML INHALATION every 6 to 8 hours February 24, 2019 12:00am July 31, 2019 8:19am Start: 02-24-2019 End: 02-09-2020 take 1 mL by inhalation every eight hours Ipratropium-Albuterol Discontinued 3 ML INHALATION Q8H February 24, 2019 12:00am February 09, 2020 12:49pm 2 ml amikacin 250 mg/ml injection (3 sources) Aminoglycoside Antibacterial Start: 01-29-2024 End: 02-05-2024 inject 250 mg by intramuscular injection every twelve hours Amikacin Discontinued 250 MG IM Every 12 hours January 29, 2024 12:00am February 05, 2024 4:36pm amitriptyline hydrochloride 25 mg oral tablet (20 sources) Tricyclic Antidepressant Start: 04-10-2022 End: 02-19-2024 take 25 mg by mouth once daily at bedtime Amitriptyline Discontinued 25 MG PO Daily at bedtime April 10, 2022 12:00am February 19, 2024 6:59pm Start: 07-31-2019 End: 02-09-2020 take 25 mg by mouth at bedtime Amitriptyline Discontin ued 25 MG PO Bedtime July 31, 2019 12:00am February 09, 2020 12:49pm calcitriol 0.18027 mg oral capsule (5 sources) Vitamin D3 Analog Start: 02-05-2024 End: 02-19-2024 take 0.25 ug by mouth once daily Calcitriol Discontinued 0.25 MCG PO Daily February 19, 2024 12:00am February 19, 2024 6:59pm cefdinir 300 mg oral capsule (20 sources) [...] 1 tablet Orally every 12 hrs Not-Taking cholecalciferol 0.05 mg oral tablet (17 sources) Vitamin D Start: 022 End: take 1 tablet by mouth once daily Cholecalciferol (Vitamin D3) (Vitamin D3) 50 mcg (2,000 unit) Tablet Discontinued 50 MCG PO Daily April 10, 2022 12:00am February 19, 2024 2:00pm Start: 07-31-2019 End: 12-04-2019 take 1 capsule by mouth once daily Cholecalciferol (Vitamin D3) (Vitamin D3) 2,000 unit Capsule Discontinued 2000 UNIT PO Daily July 31, 2019 12:00am December 04, 2019 1:04pm dapagliflozin 10 mg oral tablet (20 sources) Sodium-Glucose Cotransporter 2 Inhibitor Start: 02-13-2023 End: 02-05-2024 take 1 tablet by mouth once daily Dapagliflozin Propanediol (Farxiga) 10 mg tablet Discontinued 10 MG PO Daily February 13, 2023 12:00am February 05, 2024 4:36pm digoxin 0.125 mg oral tablet (20 sources) Cardiac Glycoside Start: 04-10-2022 End: 02-05-2024 take 125 ug by mouth once daily [...] Dulaglutide (Trulicity) 4.5 mg/0.5 mL Pen Injector (8 sources) Start: 04-10-2022 End: 02-05-2024 Dulaglutide (Trulicity) [...] 24, 2019 12:00am July 31, 2019 8:19am ferrous sulfate 325 mg oral tablet (20 sources) Start: 06-06-2022 End: 02-19-2024 take 325 mg by mouth once daily Ferrous Sulfate Discontinued 325 MG PO Daily June 06, 2022 12:07pm February 19, 2024 2:00pm Start: 06-06-2022 End: 06-06-2022 Ferrous Sulfate Discontinued MG TABLET June 06, 2022 12:00am June 06, 2022 12:07pm furosemide 20 mg oral tablet (20 sources) [...] ml insulin lispro 200 unt/ml pen injector (18 sources) Insulin Analog Start: 04-10-2022 End: 02-05-2024 [...] sources) Anticholinergic Start: 04-10-2022 End: 12-04-2022 Ipratropium [place] Discontinued SOLUTION April 10, 2022 12:00am December 04, 2022 2:05pm Ipratropium Brom jj 0.02 % USE 1 VIAL IN NEBULIZER 3 TIMES DAILY Active Ipratropium Brom jj 0.02 % USE 1 VIAL IN NEBULIZER 3 TIMES DAILY Not-Taking 24 hr isosorbide mononitrate 60 mg extended release oral tablet (10 sources) Nitrate Vasodilator Start: 02-24-2019 End: 04-10-2022 take 90 mg by mouth once daily Isosorbide Mononitrate Discontinued 90 MG PO Daily February 24, 2019 12:00am April 10, 2022 3:04pm Ketorolac (20 sources) Nonsteroidal Anti-inflammatory Drug, Cyclooxygenase Inhibitor Start: 07-26-2016 Toradol per 15 mg Jul, 60 mg levoFLOXacin 500 mg oral tablet (9 sources) Quinolone Antimicrobial Start: 02-17-2020 End: 03-12-2020 [...] 2019 12:00am February 17, 2020 12:19pm Magnesium (9 sources) Start: 02-24-2019 End: 07-31-2019 take 400 [...] Not-Taking metFORMIN hydrochloride 500 mg oral tablet (10 sources) Biguanide Start: 02-24-2019 End: 03-12-2020 take [...] 05, 2024 4:36pm take 1 tablet by [facility] every twenty-four hours metOLazone 2.5 MG 1 tablet Orally Once a day Active take 1 tablet by mouth every wee k metOLazone 5 MG 1 tablet Orally once a week Active pantoprazole 40 mg delayed release oral tablet (9 sources) Proton Pump Inhibitor Start: 02-24-2019 End: [...] 12, 2020 8:46am take 2 tablets by [facility] every twenty-four hours sennosides, halfway 8.6 mg oral tablet (9 sources) Start: 02-24-2019 End: 12-04-2019 take 8.6 [...] mg / trimethoprim 160 mg oral tablet (9 sources) Dihydrofolate Reductase Inhibitor Antibacterial, Sulfonamide Antimicrobial Start: 07-31-2019 End: 12-04-2019 take 1 tablet by mouth twice daily Sulfamethoxazole-Trimethoprim Discontinued 1 TAB PO Twice daily July 31, 2019 12:00am December 04, 2019 11:50am traZODone hydrochloride 50 mg oral tablet (9 sources) Serotonin Reuptake Inhibitor Start: 02-24-2019 End: [...] foot Episodic Acute and unspecified renal failure (20 sources) Acute renal failure syndrome; Translations: [Acute kidney failure, unspecified] Onset: 2 04-10-2022 Episodic Administrative/social admission (12 sources) Dietary counseling and surveillance; Translations: [Patient [...] Complications of surgical procedures or medical care (7 sources) Non-healing surgical wound; Translations: [Other complications [...] Angina pectoris; Translations: [Atherosclerotic heart disease of [place] coronary artery with unspecified angina pectoris] Onset: [...] IN CHRONIC KIDNEY DISEASE] Onset: 2 Chronic Deficiency and other anemia (2 sources) Anemia; Translations: [Anemia, unspecified] 02-19-2024 Episodic Deficiency and other anemia (3 sources) Anemia, unspecified; Translations: [Anemia, unspecified] Onset: 4 02-19-2024 Episodic Diabetes mellitus with complications (20 sources) Neuropathy due to diabetes mellitus; Translations: [Type 2 diabetes mellitus with diabetic neuropathy, unspecified] Onset: 1 Resolved: 2 Chronic Diabetes mellitus without complication (20 sources) Diabetes mellitus; Translations: [Type 2 diabetes mellitus] Onset: 4 04-10-2022 Chronic Diabetes mellitus without complication (9 sources) Hyperglycemia; Translations: [Hyperglycemia, unspecified] 02-13-2023 Episodic [...] acid-base balance] Onset: 2 02-13-2023 Episodic Gangrene (8 sources) Gangrene of left foot; Translations: [Gangrene, not elsewhere classified] 04-10-2022 Episodic Gangrene (1 source) Gangrene of left foot; Translations: [Gangrene of left foot] Gastrointestinal hemorrhage (20 sources) Hematochezia; Translations: [Melena] Onset: 4 02-20-2024 Episodic Genitourinary symptoms and ill-defined conditions (1 [...] Onset: 1 Resolved: 2 Chronic Nutritional deficiencies (12 sources) Deficiency of other specified B group vitamins; Translations: [Wernicke's disease] Onset: 1 Resolved: 2 Episodic Open wounds of extremities (5 sources) Unspecified open wound of right great toe without damage to nail, initial encounter; Translations: [Unspecified open wound, right lower leg, initial encounter] Onset: 2 Resolved: 2 Episodic Other aftercare (20 sources) Long-term current use of insulin; Translations: [residential (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] Episodic Other aftercare (9 sources) residential (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; Translations: [RESIDENTIAL CURRENT USE OF INSULIN] Onset: 1 Resolved: 2 Episodic Other aftercare (1 source) terminal operations supervisor (current) use of aspirin; Translations: [FINAL INSPECTOR AND TESTER CURRENT USE OF ASPIRIN] Onset: 3 Episodic Other aftercare (2 sources) Other skilled nursing (current) drug therapy; Translations: [OTH RESIDENTIAL CURRENT DRUG THERAPY] Onset: 3 Episodic Other aftercare (5 sources) Encounter for therapeutic drug level monitoring; Translations: [ENC THERAPEUTC DRUG LEVL MONITORING] Onset: 3 Episodic Other aftercare (1 source) 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; 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 ANTICOAGULANTS] Onset: 3 Episodic Other [...] OTHER LEFT TOES] Onset: 3 Episodic Other circulatory disease (1 source) Low blood pressure; Translations: [Hypotension, unspecified] 02-20-2024 Episodic Other circulatory disease (2 sources) Hypotension, unspecified; Translations: [Hypotension, unspecified] Onset: 4 02-21-2024 Episodic Other diseases of bladder and urethra [...] 1 Resolved: 2 Chronic Other gastrointestinal disorders (10 sources) Occult blood in stools; Translations: [Other fecal abnormalities] 04-10-2022 Episodic Other gastrointestinal disorders (20 sources) Diarrhea; Translations: [Diarrhea, unspecified] 02-20-2024 Episodic Other gastrointestinal disorders (2 sources) Other fecal abnormalities; Translations: [Nonspecific abnormal findings in stool contents] 02-19-2024 Episodic Other gastrointestinal disorders (2 sources) Diarrhea, unspecified; Translations: [Diarrhea] Onset: 4 02-21-2024 Episodic Other hematologic conditions (7 sources) Raised cardiac enzyme or marker; Translations: [Other specified abnormalities of plasma proteins] 02-13-2023 Episodic Other hematologic conditions (2 sources) Other specified abnormalities of plasma proteins; Translations: [Other abnormal blood chemistry] 02-13-2023 Episodic Other hereditary and degenerative nervous system conditions (1 source) Other idiopathic peripheral autonomic neuropathy; Translations: [OTH IDIO PERIPH AUTONOM NEUROPATHY] Onset: 2 Chronic Other infections; including parasitic (9 sources) Local infection of wound; Translations: [Other [...] injuries and conditions due to external causes (4 sources) Other injury of unspecified body region, initial encounter; Translations: [Posttraumatic wound infection not elsewhere classified] Onset: 4 02-05-2024 Episodic Other liver diseases (1 source) Fatty (change of) liver, not elsewhere classified; Translations: [FATTY CHANGE LIVER NEC] Onset: 2 Chronic Other lower respiratory disease (9 sources) Pulmonary edema; Translations: [Chronic pulmonary edema] [...] conditions (not mental disorders or infectious disease) (9 sources) Serum creatinine raised; Translations: [Other specified [...] 2 Chronic Respiratory failure; insufficiency; arrest (adult) (9 sources) Acute respiratory failure; Translations: [Acute respiratory [...] Test Name Value Interpretation Reference Range Facility Basic Metabolic Panelon 04-0 Anion gap [Moles/Vol] 16.5 mmol/L High 6.0-15.0 [facility] Comment on above: Performed By: #### C BCNO, BMP, [id number] #### [facility] [address] [place] [address] Calcium [Mass/Vol] 6.7 mg/dL Low 8.6-10.3 [facility] Comment on above: Performed By: #### C BCNO, BMP, [id number] #### [facility] [address] Chloride [Moles/Vol] 95 mmol/L Low 98-107 [facility] Comment on above: Performed By: #### C BCNO, BMP, [id number] #### [address] CO2 [Moles/Vol] 24.8 mmol/L Normal 21.0-31.0 [facility] Comment on above: Performed By: #### C BCNO, BMP, [id number] #### [address] Creatinine [Mass/Vol] 4.13 mg/dL Significan t change up 0.70-1.30 [facility] Comment on above: Performed By: #### C BCNO, BMP, [id number] #### [address] Creatinine Clr Calc Pharmacy 20.28 [facility] Comment on above: Performed By: #### C BCNO, BMP, [id number] #### [place] [address] [place] GFR/1.73 sq M.predicted MDRD (S/P/Bld) [Vol rate/Area] 14.855 mL/min/{1.73_m2} [facility] Comment on above: Performed By: #### C BCNO, BMP, [id number] #### [facility] [address] [place] [address] [place] Glucose [Mass/Vol] 91 mg/dL Normal 70-100 [facility] Comment on above: Result Comment: [facility] Glucose Reference Range is dependent on time and content of last meal. Glucose of more than 200 mg/dL in a nonstressed, ambulatory subject supports the diagnosis of Diabetes Mellitus. ADA recommended reference range Performed By: #### C BCNO, BMP, [id number] #### [facility] [address] Potassium [Moles/Vol] 4.3 mmol/L Normal 3.5-5.1 [facility] Comment on above: Performed By: #### C BCNO, BMP, [id number] #### [facility] [address] Sodium [Moles/Vol] 132 mmol/L Low 136-145 [facility] Comment on above: Performed By: #### C BCNO, BMP, [id number] #### [facility] [address] [place] [address] [place] Urea nitrogen [Mass/Vol] 56 mg/dL High 7-25 [facility] Comment on above: Performed By: #### C BCNO, BMP, [id number] #### [place] [id number] [facility] Calcium [Mass/volume] in Ser um or PlasmaOrdered By: Butch Rodney on 02-21-2024 Calcium [Mass/Vol] 6.7 mg/dL 8.6-10.3 [facility] Carbon dioxide, total [Moles /volume] in Serum or PlasmaOrdered By: Butch Rodney on 02-21-2024 CO2 [Moles/Vol] 24.8 mmol/L 21.0-31.0 [facility] Chloride [Moles/volume] in S mary or PlasmaOrdered By: Butch Rodney on 02-21-2024 Chloride [Moles/Vol] 95 mmol/L 98-107 [facility] Creatinine [Mass/volume] in Serum or PlasmaOrdered By: Butch Rodney on 02-21-2024 Creatinine [Mass/Vol] 4.13 mg/dL 0.70-1.30 [facility] Comment on above: Delta: 5.37 on 02/19 Erythrocyte distribution wid th Auto (RBC) [Ratio]Ordered By: Butch Rodney on 02-21-2024 Erythrocyte distribution width (RBC) [Ratio] 18.1 % 12.0-14.8 [facility] Folate [Mass/volume] in Seru m or PlasmaOrdered By: Lia Law on 02-21-2024 Folate [Mass/Vol] 7.0 ng/mL >5.9 [facility] Comment on above: Folate reference ran ge: >5.9 ng/mlThe WHO technical consultation on folate and vitamin [id number] has determined that folate concentrations lessthan 4 ng/ml are considered deficient. Glucose Glucometer (BldC) [M ass/Vol]Ordered By: Butch Rodney on 02-21-2024 Glucose [Mass/Vol] 136 mg/dL [facility] Comment on above: Random Glucose Refer ence Range is dependent on time and content of last meal. Glucose of more than 200 mg/dL in a nonstressed, ambulatory subject supports the diagnosis of Diabetes Mellitus. Glucose Poct Glucometerson 0 02-21-2024 Glucose [Mass/Vol] 136 mg/dL Normal [facility] Comment on above: Result Comment: [place] Glucose Reference Range is dependent on time and content of last meal. Glucose of more than 200 mg/dL in a nonstressed, ambulatory subject supports the diagnosis of Diabetes Mellitus. PERFORMED BY: [place] [address] PATHOLOGIST SUPER[employer] RAFA BYRNE M.D. Performed By: #### C BCNO, BMP, [id number] #### [address] Glucose [Mass/Vol] 113 mg/dL Normal [facility] Comment on above: Result Comment: [place] Glucose Reference Range is dependent on time and content of last meal. Glucose of more than 200 mg/dL in a nonstressed, ambulatory subject supports the diagnosis of Diabetes Mellitus. PERFORMED BY: [place] [address] PATHOLOGIST SUPERVIS[employer] RAFA BYRNE M.D. Performed By: #### M G, CMP, PT, PTT, CBC #### [facility] [address] [place] [address] [place] Glucose [Mass/volume] in Ser um or PlasmaOrdered By: Butch Rodney on 02-21-2024 Glucose [Mass/Vol] 91 mg/dL 70-100 [facility] Comment on above: ADA recommended refe rence rangeRandom Glucose Reference Range is dependent on time and content of last meal. Glucose of more than 200 mg/dL in a nonstressed, ambulatory subject supports the diagnosis of Diabetes Mellitus. Hematocrit Auto (Bld) [Volum e fraction]Ordered By: Butch Rodney on 02-21-2024 Hematocrit (Bld) [Volume fraction] 20.9 % 38.8-50.0 [facility] Hemoglobin [Mass/volume] in BloodOrdered By: Butch Rodney on 02-21-2024 Hemoglobin (Bld) [Mass/Vol] 7.0 g/dL 13.0-17.0 [facility] Hemogram CBC Without Diffon 02-21-2024 Erythrocyte distribution width (RBC) [Ratio] 18.1 % High 12.0-14.8 [facility] Comment on above: Performed By: #### C BCNO, BMP, [id number] #### [facility] [address] [place], [place] [id number] [facility] Hematocrit (Bld) [Volume fraction] 20.9 % Low 38.8-50.0 [facility] Comment on above: Performed By: #### C BCNO, BMP, [id number] #### [facility] [address] [place], [place] [id number] [facility] Hemoglobin (Bld) [Mass/Vol] 7.0 g/dL Low 13.0-17.0 [facility] Comment on above: Performed By: #### C BCNO, BMP, [id number] #### [address] MCH (RBC) [Entitic mass] 27.4 pg Low 27.5-35.2 [facility] Comment on above: Performed By: #### C BCNO, BMP, [id number] #### [address] MCV (RBC) [Entitic vol] 81.4 fL Low 83.5-101 F [facility] Comment on above: Performed By: #### C BCNO, BMP, [id number] #### [address] Mean Corpuscular HGB Conc 33.6 g/dL Normal 32.5-35.6 [facility] Comment on above: Performed By: #### C BCNO, BMP, [id number] #### [address] Platelet mean volume (Bld) [Entitic vol] 8.6 fL Normal 6.6-10.1 [facility] Comment on above: Result Comment: PERF ORMED BY: [place] [address] PATHOLOGIST SUPER[employer] RAFA BYRNE M.D. Performed By: #### C BCNO, BMP, [id number] #### [address] Platelets (Bld) [#/Vol] 91 10*3/uL Signific ant change down 150-450 [facility] Comment on above: Performed By: #### C BCNO, BMP, [id number] #### [address] RBC (Bld) [#/Vol] 2.57 10*6/uL Low 3.90-5.60 [facility] Comment on above: Performed By: #### C BCNO, BMP, [id number] #### [address] WBC (Bld) [#/Vol] 10.3 10*3/uL Normal 4.1-10.5 [facility] Comment on above: Performed By: #### C BCNO, BMP, [id number] #### [facility] [address] [place] [id number] [facility] Leukocytes [#/volume] correc morris for nucleated erythrocytes in Blood by Automated counOrdered By: Butch Rodney on 02-21-2024 WBC corrected for nucl RBC Auto (Bld) [#/Vol] 10.3 10*3/uL 4.1-10.5 [facility] MCH Auto (RBC) [Entitic mass ]Ordered By: Butch Rodney on 02-21-2024 MCH (RBC) [Entitic mass] 27.4 pg 27.5-35.2 [facility] MCHC Auto (RBC) [Mass/Vol]Or dered By: Butch Rodney on 02-21-2024 MCHC (RBC) [Mass/Vol] 33.6 g/dL 32.5-35.6 [facility] MCV Auto (RBC) [Entitic vol] Ordered By: Butch Rodney on 02-21-2024 MCV (RBC) [Entitic vol] 81.4 fL 83.5-101 F [facility] No Panel InformationOrdered By: Butch Rodney on 02-21-2024 Estimated GFR (CKD-EPI) 14.855 mL/Min [facility] Creatinine Clearance (Chem 20.28 [facility] Platelet mean volume Auto (B ld) [Entitic vol]Ordered By: Butch Rodney on 02-21-2024 Platelet mean volume (Bld) [Entitic vol] 8.6 fL 6.6-10.1 [facility] Platelets Auto (Bld) [#/Vol] Ordered By: Butch Rodney on 02-21-2024 Platelets (Bld) [#/Vol] 91 10*3/uL 150-450 [facility] Comment on above: Delta: 129 on 02/19/ 24-0550 Potassium [Moles/volume] in Serum or PlasmaOrdered By: Butch Rodney on 02-21-2024 Potassium [Moles/Vol] 4.3 mmol/L 3.5-5.1 [facility] RBC Auto (Bld) [#/Vol]Ordere d By: Butch Parklalita on 02-21-2024 RBC (Bld) [#/Vol] 2.57 10*6/uL 3.90-5.60 [facility] Serum or plasma anion gap de terminationOrdered By: Butch Mazinricardo on 02-21-2024 Anion gap [Moles/Vol] 16.5 mmol/L 6.0-15.0 [facility] Sodium [Moles/volume] in Ser um or PlasmaOrdered By: Butch Mazinricardo on 02-21-2024 Sodium [Moles/Vol] 132 mmol/L 136-145 [facility] Urea nitrogen [Mass/volume] in Serum or PlasmaOrdered By: Butch Mazinricardo on 02-21-2024 Urea nitrogen [Mass/Vol] 56 mg/dL 7-25 [facility] Vit. B12/Folate Profileon Cobalamin (Vitamin B12) [Mass/Vol] 1776 pg/mL High 180-914 [facility] Comment on above: Performed By: #### C BCNO, BMP, [id number] #### [facility] [address] [place] [address] Folate 7.0 ng/mL Normal >5.9 [facility] Comment on above: Result Comment: Karen te reference range: >5.9 ng/ml The WHO technical consultation on folate and vitamin b12 deficiencies has determined that folate concentrations less than 4 ng/ml are considered deficient. PERFORMED BY: [place] [address] PATHOLOGIST SUPER[employer] RAFA BYRNE M.D. Performed By: #### C BCNO, BMP, [id number] #### [facility] [address] [place] [address] Vitamin B12 ser/plasOrdered By: Lia Law on 02-21-2024 Cobalamin (Vitamin B12) [Mass/Vol] 1776 pg/mL 180-914 [facility] Basic Metabolic Panelon 04-0 Anion gap [Moles/Vol] 21.5 mmol/L High 6.0-15.0 [facility] Comment on above: Performed By: #### M G, CMP, PT, PTT, CBC #### [facility] [address] Calcium [Mass/Vol] 7.2 mg/dL Low 8.6-10.3 [facility] Comment on above: Performed By: #### M G, CMP, PT, PTT, CBC #### [facility] [address] Chloride [Moles/Vol] 96 mmol/L Low 98-107 [facility] Comment on above: Performed By: #### M G, CMP, PT, PTT, CBC #### [facility] [address] CO2 [Moles/Vol] 18.5 mmol/L Low 21.0-31.0 [facility] Comment on above: Performed By: #### M G, CMP, PT, PTT, CBC #### [address] Creatinine [Mass/Vol] 5.37 mg/dL Significan t change up 0.70-1.30 [facility] Comment on above: Performed By: #### M G, CMP, PT, PTT, CBC #### [facility] [address] [place] [address] [place] Creatinine Clr Calc Pharmacy 15.60 [facility] Comment on above: Performed By: #### M G, CMP, PT, PTT, CBC #### [facility] [address] [place] [address] [place] GFR/1.73 sq M.predicted MDRD (S/P/Bld) [Vol rate/Area] 10.840 mL/min/{1.73_m2} [facility] Comment on above: Performed By: #### M G, CMP, PT, PTT, CBC #### [facility] [address] Glucose [Mass/Vol] 114 mg/dL High 70-100 [facility] Comment on above: Result Comment: [facility] Glucose Reference Range is dependent on time and content of last meal. Glucose of more than 200 mg/dL in a nonstressed, ambulatory subject supports the diagnosis of Diabetes Mellitus. ADA recommended reference range Performed By: #### M G, CMP, PT, PTT, CBC #### [address] Potassium [Moles/Vol] 5.0 mmol/L Normal 3.5-5.1 [facility] Comment on above: Performed By: #### M G, CMP, PT, PTT, CBC #### [address] Sodium [Moles/Vol] 131 mmol/L Low 136-145 [facility] Comment on above: Performed By: #### M G, CMP, PT, PTT, CBC #### [address] Urea nitrogen [Mass/Vol] 82 mg/dL High 7-25 [facility] Comment on above: Performed By: #### M G, CMP, PT, PTT, CBC #### [address] Glucose Poct Glucometerson 0 02-20-2024 Glucose [Mass/Vol] 144 mg/dL Normal [facility] Comment on above: Result Comment: [facility] Glucose Reference Range is dependent on time and content of last meal. Glucose of more than 200 mg/dL in a nonstressed, ambulatory subject supports the diagnosis of Diabetes Mellitus. PERFORMED BY: [place] [address] PATHOLOGIST SUPER[employer] RAFA BYRNE M.D. Performed By: #### C BCNO, BMP, [id number] #### [place] [address] [place] Glucose [Mass/Vol] 124 mg/dL Normal [facility] Comment on above: Result Comment: [place] [facility] Glucose Reference Range is dependent on time and content of last meal. Glucose of more than 200 mg/dL in a nonstressed, ambulatory subject supports the diagnosis of Diabetes Mellitus. PERFORMED BY: [place] [address] PATHOLOGIST SUPER[employer] RAFA BYRNE M.D. Performed By: #### C BCNO, BMP, [id number] #### [facility] [address] [place] [address] Glucose [Mass/Vol] 134 mg/dL Normal [facility] Comment on above: Result Comment: [place] [facility] Glucose Reference Range is dependent on time and content of last meal. Glucose of more than 200 mg/dL in a nonstressed, ambulatory subject supports the diagnosis of Diabetes Mellitus. PERFORMED BY: [place] [address] PATHOLOGIST SUPER[employer] RAFA BYRNE M.D. Performed By: #### M G, CMP, PT, PTT, CBC #### [address] Commemt1 Glu2: Cleaned Meter Normal [facility] Comment on above: Result Comment: PERF ORMED BY: [place] [address] PATHOLOGIST SUPER[employer] RAFA BYRNE M.D. Performed By: #### M G, CMP, PT, PTT, CBC #### [address] Glucose [Mass/Vol] 149 mg/dL Normal [facility] Comment on above: Result Comment: [place] [facility] Glucose Reference Range is dependent on time and content of last meal. Glucose of more than 200 mg/dL in a nonstressed, ambulatory subject supports the diagnosis of Diabetes Mellitus. Performed By: #### M G, CMP, PT, PTT, CBC #### [facility] [address] [place] [address] Hemogram CBC Without Diffon 02-20-2024 Erythrocyte distribution width (RBC) [Ratio] 18.1 % High 12.0-14.8 [facility] Comment on above: Performed By: #### C BCNO, BMP, MG #### [address] Hematocrit (Bld) [Volume fraction] 22.9 % Low 38.8-50.0 [facility] Comment on above: Performed By: #### C BCNO, BMP, MG #### [address] Hemoglobin (Bld) [Mass/Vol] 7.6 g/dL Low 13.0-17.0 [facility] Comment on above: Performed By: #### C BCNO, BMP, MG #### [address] MCH (RBC) [Entitic mass] 27.5 pg Normal 27.5-35.2 [facility] Comment on above: Performed By: #### C BCNO, BMP, MG #### [address] MCV (RBC) [Entitic vol] 83.3 fL Low 83.5-101 F [facility] Comment on above: Performed By: #### C BCNO, BMP, MG #### [address] Mean Corpuscular HGB Conc 33.0 g/dL Normal 32.5-35.6 [facility] Comment on above: Performed By: #### C BCNO, BMP, MG #### [address] Platelet mean volume (Bld) [Entitic vol] 8.6 fL Normal 6.6-10.1 [facility] Comment on above: Result Comment: PERF ORMED BY: [place] [address] PATHOLOGIST SUPER[employer] RAFA BYRNE M.D. Performed By: #### C BCNO, BMP, MG #### [address] Platelets (Bld) [#/Vol] 129 10*3/uL Low 150-450 [facility] Comment on above: Performed By: #### C BCNO, BMP, MG #### [facility] [address] RBC (Bld) [#/Vol] 2.75 10*6/uL Low 3.90-5.60 [facility] Comment on above: Performed By: #### C BCNO, BMP, MG #### [facility] [address] WBC (Bld) [#/Vol] 11.9 10*3/uL High 4.1-10.5 [facility] Comment on above: Performed By: #### C BCNO, BMP, MG #### [facility] [address] Magnesiumon 02-20-2024 Magnesium [Mass/Vol] 1.9 mg/dL Normal 1.9-2.7 [facility] Comment on above: Result Comment: PERF ORMED BY: [place] [address] PATHOLOGIST SUPER[employer] RAFA BYRNE M.D. Performed By: #### M G, CMP, PT, PTT, CBC #### [facility] [address] [place] [address] Magnesium [Mass/volume] in S mary or PlasmaOrdered By: Butch Rodney on 02-20-2024 Magnesium [Mass/Vol] 1.9 mg/dL 1.9-2.7 [facility] No Panel InformationOrdered By: Bucth Rodney on 02-20-2024 Bedside Glucose Comment Glu2: cleaned meter [facility] ABO/Rh Retypeon 02-19-2024 ABO/RH Recheck Result Positive Normal [facility] Comment on above: Result Comment: PERF ORMED BY: [place] [address] PATHOLOGIST SUPER[employer] RAFA BYRNE M.D. Absolute reticulocyte countO rdered By: Butch Rodney on 02-19-2024 Reticulocytes (Bld) [#/Vol] 0.018 10*6/uL 0.024-0.08 4 [facility] Alanine aminotransferase [En zymatic activity/volume] in Serum or PlasmaOrdered By: Nancy Bullimore on 02-19-2024 ALT [Catalytic activity/Vol] 6 U/L 7-52 [facility] Albumin [Mass/volume] in Ser um or Plasma by Bromocresol green (BCG) dye binding methoOrdered By: Nancy Bullimore on 02-19-2024 Albumin BCG dye [Mass/Vol] 2.8 g/dL 3.5-5.7 [facility] Alkaline phosphatase [Enzyma tic activity/volume] in Serum or PlasmaOrdered By: Nancy Bullimore on 02-19-2024 ALP [Catalytic activity/Vol] 111 U/L 34-104 [facility] Aspartate aminotransferase [ Enzymatic activity/volume] in Serum or PlasmaOrdered By: Nancy Bullimore on 02-19-2024 AST [Catalytic activity/Vol] 10 U/L 13-39 [facility] Basophils Auto (Bld) [#/Vol] Ordered By: Nancy Bullimore on 02-19-2024 Basophils (Bld) [#/Vol] 0.1 10*3/uL 0.0-0.2 [facility] Basophils/100 WBC Auto (Bld) Ordered By: Nancy Bullimore on 02-19-2024 Basophils/100 WBC (Bld) 0.6 % . F [facility] Bilirubin.total [Mass/volume ] in Serum or PlasmaOrdered By: Nancy Bullimore on 02-19-2024 Bilirubin [Mass/Vol] 0.5 mg/dL 0.3-1.0 [facility] Calcium [Mass/volume] in Ser um or PlasmaOrdered By: Nancy Bullimore on 02-19-2024 Calcium [Mass/Vol] 7.1 mg/dL 8.6-10.3 [facility] Carbon dioxide, total [Moles /volume] in Serum or PlasmaOrdered By: Nancy Bullimore on 02-19-2024 CO2 [Moles/Vol] 21.2 mmol/L 21.0-31.0 [facility] Chloride [Moles/volume] in S mary or PlasmaOrdered By: Nancy Bullimore on 02-19-2024 Chloride [Moles/Vol] 97 mmol/L 98-107 [facility] Clostridioides difficile tox in B tcdB gene [Presence] in Stool by RADHA with probe deteOrdered By: Butch Rodney on 02-19-2024 C. difficile toxin B tcdB gene RADHA+probe Ql (Stl) Negative Negative [facility] Comment on above: Testing performed by RT-PCR Clostridium Difficileon Clostridium Difficile Negative Normal Negative [facility] Comment on above: Order Comment: > or = to 3 loose/watery stools in the last 24 HRS? Y Is patient on promotility agents or tube feeding? N Result Comment: Test ing performed by RT-PCR PERFORMED BY: [place] [address] PATHOLOGIST SU[employer] RAFA BYRNE M.D. Performed By: #### M G, CMP, PT, PTT, CBC #### [address] Complete Blood Count Auto Di ffon 02-19-2024 Basophils (Bld) [#/Vol] 0.1 10*3/uL Normal 0.0-0.2 [facility] Comment on above: Result Comment: PERF ORMED BY: [place] [address] PATHOLOGIST SUPER[employer] RAFA BYRNE M.D. Performed By: #### C BCNO, BMP, [id number] #### [address] Basophils/100 WBC (Bld) 0.6 % Normal . F [facility] Comment on above: Performed By: #### C BCNO, BMP, [id number] #### [address] Eosinophils (Bld) [#/Vol] 0.2 10*3/uL Normal 0.0-0.45 [facility] Comment on above: Performed By: #### C BCNO, BMP, [id number] #### [address] Eosinophils/100 WBC (Bld) 1.6 % Normal . [facility] Comment on above: Performed By: #### C BCNO, BMP, [id number] #### [address] Erythrocyte distribution width (RBC) [Ratio] 17.6 % High 12.0-14.8 [facility] Comment on above: Performed By: #### C BCNO, BMP, [id number] #### [address] Hematocrit (Bld) [Volume fraction] 20.9 % Low 38.8-50.0 [facility] Comment on above: Performed By: #### C BCNO, BMP, [id number] #### [address] Hemoglobin (Bld) [Mass/Vol] 6.8 g/dL Low 13.0-17.0 [facility] Comment on above: Performed By: #### C BCNO, BMP, [id number] #### [address] Lymphocytes (Bld) [#/Vol] 1.2 10*3/uL Normal 1.00-4.8 [facility] Comment on above: Performed By: #### C BCNO, BMP, [id number] #### [address] Lymphocytes/100 WBC (Bld) 11.1 % Normal . [facility] Comment on above: Performed By: #### C BCNO, BMP, [id number] #### [address] MCH (RBC) [Entitic mass] 26.7 pg Low 27.5-35.2 [facility] Comment on above: Performed By: #### C BCNO, BMP, [id number] #### [address] MCV (RBC) [Entitic vol] 82.1 fL Low 83.5-101 F [facility] Comment on above: Performed By: #### C BCNO, BMP, [id number] #### [facility] [address] Mean Corpuscular HGB Conc 32.6 g/dL Normal 32.5-35.6 [facility] Comment on above: Performed By: #### C BCNO, BMP, [id number] #### [facility] [address] [place] [address] Monocytes (Bld) [#/Vol] 0.3 10*3/uL Normal 0.0-0.8 [facility] Comment on above: Performed By: #### C BCNO, BMP, [id number] #### [address] Monocytes/100 WBC (Bld) 22.75 % High 0.00-20.00 [facility] Comment on above: Result Comment: For adults in ED, MDW > 20.0 may be associated with a higher risk of sepsis during the first 12 hrs of hospital admission Performed By: #### C BCNO, BMP, [id number] #### [facility] [address] [place] [address] Monocytes/100 WBC (Bld) 2.7 % Normal . [facility] Comment on above: Performed By: #### C BCNO, BMP, [id number] #### [facility] [address] [place] [address] Neutrophils (Bld) [#/Vol] 8.8 10*3/uL High 1.8-7.7 [facility] Comment on above: Performed By: #### C BCNO, BMP, [id number] #### [facility] [address] [place] [address] Neutrophils/100 WBC (Bld) 84.0 % Normal . [facility] Comment on above: Performed By: #### C BCNO, BMP, [id number] #### [facility] [address] [place] [address] NRBC% 0.1 /100{WBC} Normal 0-0.5 [facility] Comment on above: Performed By: #### C BCNO, BMP, [id number] #### [address] Platelet mean volume (Bld) [Entitic vol] 8.6 fL Normal 6.6-10.1 [facility] Comment on above: Performed By: #### C BCNO, BMP, [id number] #### [address] Platelets (Bld) [#/Vol] 118 10*3/uL Low 150-450 [facility] Comment on above: Performed By: #### C BCNO, BMP, [id number] #### [address] RBC (Bld) [#/Vol] 2.54 10*6/uL Low 3.90-5.60 [facility] Comment on above: Performed By: #### C BCNO, BMP, [id number] #### [address] WBC (Bld) [#/Vol] 10.4 10*3/uL Normal 4.1-10.5 [facility] Comment on above: Performed By: #### C BCNO, BMP, [id number] #### [address] Comprehensive Metabolic Pane bola 02-19-2024 Albumin [Mass/Vol] 2.8 g/dL Low 3.5-5.7 [facility] Comment on above: Performed By: #### C BCNO, BMP, [id number] #### [address] Albumin/Globulin [Mass ratio] 0.9 {ratio} Normal [facility] Comment on above: Performed By: #### C BCNO, BMP, [id number] #### [address] ALP [Catalytic activity/Vol] 111 U/L High 34-104 [facility] Comment on above: Performed By: #### C BCNO, BMP, [id number] #### [facility] [address] [place] [address] ALT [Catalytic activity/Vol] 6 U/L Low 7-52 [facility] Comment on above: Performed By: #### C BCNO, BMP, [id number] #### [facility] [address] [place] [address] Anion gap [Moles/Vol] 19.4 mmol/L High 6.0-15.0 [facility] Comment on above: Performed By: #### C BCNO, BMP, [id number] #### [address] AST [Catalytic activity/Vol] 10 U/L Low 13-39 [facility] Comment on above: Performed By: #### C BCNO, BMP, [id number] #### [facility] [address] [place] [address] Bilirubin [Mass/Vol] 0.5 mg/dL Normal 0.3-1.0 [facility] Comment on above: Performed By: #### C BCNO, BMP, [id number] #### [address] Calcium [Mass/Vol] 7.1 mg/dL Low 8.6-10.3 [facility] Comment on above: Performed By: #### C BCNO, BMP, [id number] #### [facility] [address] [place] [address] Chloride [Moles/Vol] 97 mmol/L Low 98-107 [facility] Comment on above: Performed By: #### C BCNO, BMP, [id number] #### [address] CO2 [Moles/Vol] 21.2 mmol/L Normal 21.0-31.0 [facility] Comment on above: Performed By: #### C BCNO, BMP, [id number] #### [facility] [address] Creatinine [Mass/Vol] 4.66 mg/dL High 0.70-1.30 [facility] Comment on above: Performed By: #### C BCNO, BMP, [id number] #### [facility] [address] Creatinine Clr Calc Pharmacy 17.59 Normal [facility] Comment on above: Result Comment: PERF ORMED BY: [place] [address] PATHOLOGIST [employer] RAFA BYRNE M.D. Performed By: #### C BCNO, BMP, [id number] #### [address] GFR/1.73 sq M.predicted MDRD (S/P/Bld) [Vol rate/Area] 12.851 mL/min/{1.73_m2} Normal [facility] Comment on above: Performed By: #### C BCNO, BMP, [id number] #### [address] Globulin (S) [Mass/Vol] 3.1 g/dL Normal [facility] Comment on above: Performed By: #### C BCNO, BMP, [id number] #### [address] Glucose [Mass/Vol] 170 mg/dL High 70-100 [facility] Comment on above: Result Comment: [place] Glucose Reference Range is dependent on time and content of last meal. Glucose of more than 200 mg/dL in a nonstressed, ambulatory subject supports the diagnosis of Diabetes Mellitus. ADA recommended reference range Performed By: #### C BCNO, BMP, [id number] #### [facility] [address] Potassium [Moles/Vol] 4.6 mmol/L Normal 3.5-5.1 [facility] Comment on above: Performed By: #### C BCNO, BMP, [id number] #### [facility] [address] Protein [Mass/Vol] 5.9 g/dL Low 6.4-8.9 [facility] Comment on above: Performed By: #### C BCNO, BMP, [id number] #### [facility] [address] Sodium [Moles/Vol] 133 mmol/L Low 136-145 [facility] Comment on above: Performed By: #### C BCNO, BMP, [id number] #### [facility] [address] [place] [address] Urea nitrogen [Mass/Vol] 66 mg/dL High 7-25 [facility] Comment on above: Performed By: #### C BCNO, BMP, [id number] #### [address] Creatinine [Mass/volume] in Serum or PlasmaOrdered By: Nancy Hancock on 02-19-2024 Creatinine [Mass/Vol] 4.66 mg/dL 0.70-1.30 [facility] ECG 12 lead ECGon 02-19-2024 ECG 12 lead ECG [facility] [employer] [address] [place] [address] Electrocardiograph Report Signed Patient: Adwoa Porter MR#: [id number] 7 : 1955 Acct:[id number] Age/Sex: 68 / M ADM Date: 02/19/24 Loc: Room: [address] [place] [address] Type: ADM IN Attending Dr: Butch Rodney MD Ordering Provider: BINTA Lopez Date of Service: 02/19/2401/12/1101 ECG/ECG 12 lead ECG: Upper Respiratory Infection Copies to: Test Reason : Blood Pressure : 089/051 mmHG Vent. Rate : 085 BPM Atrial Rate : 088 BPM P-R Int : 000 ms QRS Dur : 158 ms QT Int : 468 ms P-R-T Axes : 000 -86 054 degrees QTc Int : 556 ms Wide QRS rhythm Right bundle branch block Left anterior fascicular block Bifascicular block Possible Anterolateral infarct , age undetermined Abnormal ECG When compared with ECG of 29-JAN-2024 00:04, Wide QRS rhythm has replaced Electronic ventricular pacemaker Confirmed by Adriano Blanco DO ([id number]) on 02/19/2024 1:57:21 PM Referred By: Electronically Signed By:Adriano Blanco DO Transcribed By: MUS Signed By Adriano Blanco DO 4 1357 Normal [facility] Eosinophils Auto (Bld) [#/Vo l]Ordered By: Nancy Grewalimchristie on 02-19-2024 Eosinophils (Bld) [#/Vol] 0.2 10*3/uL 0.0-0.45 [facility] Eosinophils/100 WBC Auto (Bl d)Ordered By: Nancy Hancock on 02-19-2024 Eosinophils/100 WBC (Bld) 1.6 % . [facility] Erythrocyte distribution wid th Auto (RBC) [Ratio]Ordered By: Nancy Hancock on 02-19-2024 Erythrocyte distribution width (RBC) [Ratio] 17.6 % 12.0-14.8 [facility] Fecal occult blood detection by immunochemistryOrdered By: Nancy Hancock on 02-19-2024 Hemoglobin.gastrointest inal Ql (Stl) [facility] Ferritinon 02-19-2024 Ferritin [Mass/Vol] 309.4 ng/mL Normal 23.9-336.2 [facility] Comment on above: Result Comment: PERF ORMED BY: [place] [address] PATHOLOGIST [employer] RAFA BYRNE M.D. Performed By: #### C BCNO, BMP, [id number] #### [address] Ferritin [Mass/volume] in Se rum or PlasmaOrdered By: Nancy Hancock on 02-19-2024 Ferritin [Mass/Vol] 309.4 ng/mL 23.9-336.2 [facility] Globulin Calc (S) [Mass/Vol] Ordered By: Nancy Hancock on 02-19-2024 Globulin (S) [Mass/Vol] 3.1 g/dL F [facility] Glucose Poct Glucometerson 0 02-19-2024 Glucose [Mass/Vol] 177 mg/dL Normal [facility] Comment on above: Result Comment: [place] om Glucose Reference Range is dependent on time and content of last meal. Glucose of more than 200 mg/dL in a nonstressed, ambulatory subject supports the diagnosis of Diabetes Mellitus. PERFORMED BY: [place] [address] PATHOLOGIST SU[employer] RAFA BYRNE M.D. Performed By: #### M G, CMP, PT, PTT, CBC #### [facility] [address] [place] [address] Glucose [Mass/volume] in Ser um or PlasmaOrdered By: Nancy Hancock on 02-19-2024 Glucose [Mass/Vol] 170 mg/dL 70-100 [facility] Comment on above: ADA recommended refe rence rangeRandom Glucose Reference Range is dependent on time and content of last meal. Glucose of more than 200 mg/dL in a nonstressed, ambulatory subject supports the diagnosis of Diabetes Mellitus. Hematocrit Auto (Bld) [Volum e fraction]Ordered By: Nancy Hancock on 02-19-2024 Hematocrit (Bld) [Volume fraction] 20.9 % 38.8-50.0 [facility] Hemoglobin [Mass/volume] in BloodOrdered By: Nancy Hancock on 02-19-2024 Hemoglobin (Bld) [Mass/Vol] 6.8 g/dL 13.0-17.0 [facility] Iron [Mass/volume] in Serum or PlasmaOrdered By: Nancy Hancock on 02-19-2024 Iron [Mass/Vol] 179 ug/dL 50-212 [facility] Iron and TIBC Profileon % Iron Saturation 91.3 % High 20-50 [facility] Comment on above: Performed By: #### C BCNO, BMP, [id number] #### [facility] [address] Iron [Mass/Vol] 179 ug/dL Normal 50-212 [facility] Comment on above: Performed By: #### C BCNO, BMP, [id number] #### [facility] [address] Total Iron Binding Capacity 196 ug/dL Low 255-450 [facility] Comment on above: Performed By: #### C BCNO, BMP, [id number] #### [facility] [address] Transferrin [Mass/Vol] 140 mg/dL Low 203-362 [facility] Comment on above: Performed By: #### C BCNO, BMP, [id number] #### [facility] [address] [place] [address] Iron binding capacity [Mass/ volume] in Serum or PlasmaOrdered By: Nancy Bullimore on 02-19-2024 Iron binding capacity [Mass/Vol] 196 ug/dL 255-450 [facility] Iron saturation [Mass Fracti on] in Serum or PlasmaOrdered By: Nancy Bullimore on 02-19-2024 Iron saturation [Mass fraction] 91.3 % 20-50 [facility] Lactoferrin, Stool WBCon Lactoferrin, Stool WBC LACTOFERRIN Positive for Fecal Lactoferrin Review patient history for chronic inflammatory conditions and status which can cause positive results unrelated to acute infectious disease. ------ Reference range = Negative PERFORMED BY: [place] [address] PATHOLOGIST SU[employer] RAFA BYRNE M.D. [facility] Comment on above: Performed By: #### M G, CMP, PT, PTT, CBC #### [facility] [address] [place] [address] [facility] LeukoReduced RBCon LeukoReduced RBC TRANSFUSED 02/21/24 1255 Normal [facility] Leukocytes [#/volume] correc morris for nucleated erythrocytes in Blood by Automated counOrdered By: Nancy Bullimore on 02-19-2024 WBC corrected for nucl RBC Auto (Bld) [#/Vol] 10.4 10*3/uL 4.1-10.5 [facility] Lymphocytes Auto (Bld) [#/Vo l]Ordered By: Nancy Bullimore on 02-19-2024 Lymphocytes (Bld) [#/Vol] 1.2 10*3/uL 1.00-4.8 [facility] Lymphocytes/100 WBC Auto (Bl d)Ordered By: Nancy Bullimore on 02-19-2024 Lymphocytes/100 WBC (Bld) 11.1 % . [facility] MCH Auto (RBC) [Entitic mass ]Ordered By: Nancy Bullimore on 02-19-2024 MCH (RBC) [Entitic mass] 26.7 pg 27.5-35.2 [facility] MCHC Auto (RBC) [Mass/Vol]Or dered By: Nancy Bullimore on 02-19-2024 MCHC (RBC) [Mass/Vol] 32.6 g/dL 32.5-35.6 [facility] MCV Auto (RBC) [Entitic vol] Ordered By: Nancy Bullimore on 02-19-2024 MCV (RBC) [Entitic vol] 82.1 fL 83.5-101 F [facility] Monocyte distribution width [Entitic volume] in Blood by AutomatedOrdered By: Nancy Grewalimore on 02-19-2024 Monocyte distribution width Auto (Bld) [Entitic vol] 22.75 % 0.00-20.00 [facility] Comment on above: For adults in ED, MD W > 20.0 may be associated with a higher risk of sepsis during the first 12 hrs of hospital admission Monocytes Auto (Bld) [#/Vol] Ordered By: Nancy Bullimore on 02-19-2024 Monocytes (Bld) [#/Vol] 0.3 10*3/uL 0.0-0.8 [facility] Monocytes/100 WBC Auto (Bld) Ordered By: Nancy Bullimore on 02-19-2024 Monocytes/100 WBC (Bld) 2.7 % . [facility] Neutrophils Auto (Bld) [#/Vo l]Ordered By: Nancy Bullimore on 02-19-2024 Neutrophils (Bld) [#/Vol] 8.8 10*3/uL 1.8-7.7 [facility] Neutrophils/100 WBC Auto (Bl d)Ordered By: Nancy Bullimore on 02-19-2024 Neutrophils/100 WBC (Bld) 84.0 % . [facility] No Panel InformationOrdered By: Nancy Bullimore on 02-19-2024 Estimated GFR (CKD-EPI) 12.851 mL/Min [facility] Creatinine Clearance (Chem 17.59 [facility] Nucleated erythrocytes [Pres ence] in Blood by Automated countOrdered By: Nancy Bullimore on 02-19-2024 Nucleated RBC Auto Ql (Bld) 0.1 /100{WBC} 0-0.5 [facility] Platelet mean volume Auto (B ld) [Entitic vol]Ordered By: Nancy Bullimore on 02-19-2024 Platelet mean volume (Bld) [Entitic vol] 8.6 fL 6.6-10.1 [facility] Platelets Auto (Bld) [#/Vol] Ordered By: Nancy Bullimore on 02-19-2024 Platelets (Bld) [#/Vol] 118 10*3/uL 150-450 [facility] Potassium [Moles/volume] in Serum or PlasmaOrdered By: Nancy Bullimore on 02-19-2024 Potassium [Moles/Vol] 4.6 mmol/L 3.5-5.1 [facility] Protein [Mass/volume] in Ser um or PlasmaOrdered By: Nancy Bullimore on 02-19-2024 Protein [Mass/Vol] 5.9 g/dL 6.4-8.9 [facility] RBC Auto (Bld) [#/Vol]Ordere d By: Nancy Bullimore on 02-19-2024 RBC (Bld) [#/Vol] 2.54 10*6/uL 3.90-5.60 [facility] Reticulocyte Counton 024 Reticulocyte Number 0.018 10*6/uL Low 0.024-0 .08 4 [facility] Comment on above: Order Comment: Comme nt add on Result Comment: PERF ORMED BY: [place] [address] PATHOLOGIST SU[employer] RAFA BYRNE M.D. Performed By: #### C BCNO, BMP, [id number] #### [facility] [address] Reticulocyte Percent 0.7 % Normal 0.5-1.5 [facility] Comment on above: Order Comment: Commhitesh nt add on Performed By: #### C BCNO, BMP, [id number] #### [facility] [address] [place] [address] [place] Reticulocytes/100 RBC Auto ( Bld)Ordered By: Butch Rodney on 02-19-2024 Reticulocytes/100 RBC (Bld) 0.7 % 0.5-1.5 [facility] Serum or plasma albumin/glob ulin mass ratioOrdered By: Nancy Bullimore on 02-19-2024 Albumin/Globulin [Mass ratio] 0.9 {ratio} [facility] Serum or plasma anion gap de terminationOrdered By: Nancy Bullimore on 02-19-2024 Anion gap [Moles/Vol] 19.4 mmol/L 6.0-15.0 [facility] Sodium [Moles/volume] in Ser um or PlasmaOrdered By: Nancy Bullimore on 02-19-2024 Sodium [Moles/Vol] 133 mmol/L 136-145 [facility] Stool Occult Blood (Guaiac)o n 02-19-2024 Stool Occult Blood (Guaiac) Occult Blood Positive for Occult Blood by Guaiac Methodology ------ Reference range = Negative PERFORMED BY: [place] [address] PATHOLOGIST SU[employer] RAFA BYRNE M.D. Normal [facility] Comment on above: Performed By: #### M G, CMP, PT, PTT, CBC #### [place] [id number] [facility] Stool lactoferrin detectionO rdered By: Butch Rodney on 02-19-2024 Lactoferrin Ql (Stl) [facility] Transferrin [Mass/volume] in Serum or PlasmaOrdered By: Nancy Hancock on 02-19-2024 Transferrin [Mass/Vol] 140 mg/dL 203-362 [facility] Type and Screenon 02-19-2024 ABO and Rh group Nom (Bld) Blood group A Rh(D) positive [facility] Comment on above: Order Comment: Trans fuse now? Y Number of units to transfuse now? 1 Transfuse now? Y Number of units to transfuse now? 1 Result Comment: PERF ORMED BY: [place] [address] PATHOLOGIST SU[employer] RAFA BYRNE M.D. Urea nitrogen [Mass/volume] in Serum or PlasmaOrdered By: Nancy Hancock on 02-19-2024 Urea nitrogen [Mass/Vol] 66 mg/dL 7-25 [facility] WBC Auto (Bld) [#/Vol]Ordere d By: Nancy Grewalimore on 02-19-2024 WBC (Bld) [#/Vol] 10.4 10*3/uL 4.1-10.5 [facility] XR chest 1V portableon 02-18 XR chest 1V portable [facility] [employer] [address] [place] [id number] XRay Report Signed Patient: Adwoa Porter MR#: [id number] 7 : 1955 Acct:[id number] Age/Sex: 68 / M ADM Date: 02/19/24 Loc: 3T Room: [address] [place] [address] Type: ADM IN Attending Dr: Butch Rodney MD Copies to: BINTA Lopez MD Ordering Provider: BINTA Lopez Date of Service: 02/19/24 XR/XR chest 1V portable: chest pain SINGLE VIEW CHEST CLINICAL HISTORY: CT chest 01/28/2024. COMPARISON: Low hemoglobin. Recent GI bleed. FINDINGS: Patient is rotated limiting evaluation. Right-sided dialysis catheter is in place. Cardiomegaly with vascular congestion, left lower lobe airspace disease and likely pleural effusion persists. No pneumothorax or free air. XR/XR chest 1V portable IMPRESSION: NEW RIGHT-SIDED DIALYSIS CATHETER IS IN PLACE SINCE THE PRIOR STUDY. CHF FINDINGS WITH LEFT LOWER LOBE AIRSPACE DISEASE AND SMALL LEFT PLEURAL EFFUSION, UNCHANGED. Impression dictated by: Brennan Salgado Jr., D.O.02/19/2024 2:27 PM Dictation Location: [place] [address] Transcribed By: [facility] 02/19/24 1427 Dictated By: Brennan Salgado Jr, DO 02/19/24 1426 Signed By: 02/19/24 1427 Normal [facility] Hemoglobin [Mass/volume] in Bloodon 02-13-2024 Hemoglobin (Bld) [Mass/Vol] 6.1 g/dL 14.0-18.0 [facility] Comment on above: RESULTS CALLED TO BE YAMILKA CHAPIN RN AT DIALYSIS BY [place] at 0908 Albumin [Mass/volume] in Ser um or Plasma by Bromocresol green (BCG) dye binding methoOrdered By: Farhan Hudson on 02-05-2024 Albumin BCG dye [Mass/Vol] 2.4 g/dL 3.5-5.7 [facility] Basophils Auto (Bld) [#/Vol] Ordered By: Swathi Burnham on 02-05-2024 Basophils (Bld) [#/Vol] 0.1 10*3/uL 0.0-0.2 [facility] Basophils/100 WBC Auto (Bld) Ordered By: Swathi Burnham on 02-05-2024 Basophils/100 WBC (Bld) 0.6 % . [facility] Calcium [Mass/volume] in Ser um or PlasmaOrdered By: Farhan Hudson on 02-05-2024 Calcium [Mass/Vol] 7.0 mg/dL 8.6-10.3 [facility] Capillary blood glucose mike urement by glucometer (mass/volume)Ordered By: Swathi Burnham on 02-05-2024 Glucose [Mass/Vol] 256 mg/dL Normal [facility] Comment on above: Random Glucose Refer ence Range is dependent on time and content of last meal. Glucose of more than 200 mg/dL in a nonstressed, ambulatory subject supports the diagnosis of Diabetes Mellitus. Result Comment: [place] Glucose Reference Range is dependent on time and content of last meal. Glucose of more than 200 mg/dL in a nonstressed, ambulatory subject supports the diagnosis of Diabetes Mellitus. Performed By: #### M G, CMP, PT, PTT, CBC #### [facility] [address] Carbon dioxide, total [Moles /volume] in Serum or PlasmaOrdered By: Farhan Hudson on 02-05-2024 CO2 [Moles/Vol] 27.6 mmol/L 21.0-31.0 [facility] Chloride [Moles/volume] in S mary or PlasmaOrdered By: Farhan Hudson on 02-05-2024 Chloride [Moles/Vol] 95 mmol/L 98-107 [facility] Complete Blood Count Auto Di ffon 02-05-2024 Basophils (Bld) [#/Vol] 0.1 10*3/uL Normal 0.0-0.2 [facility] Comment on above: Result Comment: PERF ORMED BY: [facility] [address] [place] [address] PATHOLOGIST SU[employer] RAFA BYRNE M.D. Performed By: #### M G, CMP, PT, PTT, CBC #### [facility] [address] [place] [address] [place] Basophils/100 WBC (Bld) 0.6 % Normal . [facility] Comment on above: Performed By: #### M G, CMP, PT, PTT, CBC #### [address] Eosinophils (Bld) [#/Vol] 0.4 10*3/uL Normal 0.0-0.45 [facility] Comment on above: Performed By: #### M G, CMP, PT, PTT, CBC #### [address] Eosinophils/100 WBC (Bld) 5.0 % Normal . [facility] Comment on above: Performed By: #### M G, CMP, PT, PTT, CBC #### [address] Erythrocyte distribution width (RBC) [Ratio] 17.7 % High 12.0-14.8 [facility] Comment on above: Performed By: #### M G, CMP, PT, PTT, CBC #### [address] Hematocrit (Bld) [Volume fraction] 22.6 % Low 38.8-50.0 [facility] Comment on above: Performed By: #### M G, CMP, PT, PTT, CBC #### [address] Hemoglobin (Bld) [Mass/Vol] 7.6 g/dL Low 13.0-17.0 [facility] Comment on above: Performed By: #### M G, CMP, PT, PTT, CBC #### [address] Lymphocytes (Bld) [#/Vol] 1.3 10*3/uL Normal 1.00-4.8 [facility] Comment on above: Performed By: #### M G, CMP, PT, PTT, CBC #### [address] Lymphocytes/100 WBC (Bld) 14.7 % Normal . [facility] Comment on above: Performed By: #### M G, CMP, PT, PTT, CBC #### [address] [place] [address] [place] MCH (RBC) [Entitic mass] 26.6 pg Low 27.5-35.2 [facility] Comment on above: Performed By: #### M G, CMP, PT, PTT, CBC #### [address] MCV (RBC) [Entitic vol] 79.6 fL Low 83.5-101 F [facility] Comment on above: Performed By: #### M G, CMP, PT, PTT, CBC #### [address] Mean Corpuscular HGB Conc 33.4 g/dL Normal 32.5-35.6 [facility] Comment on above: Performed By: #### M G, CMP, PT, PTT, CBC #### [address] Monocytes (Bld) [#/Vol] 0.5 10*3/uL Normal 0.0-0.8 [facility] Comment on above: Performed By: #### M G, CMP, PT, PTT, CBC #### [address] Monocytes/100 WBC (Bld) 6.1 % Normal . [facility] [facility] Comment on above: Performed By: #### M G, CMP, PT, PTT, CBC #### [address] Neutrophils (Bld) [#/Vol] 6.6 10*3/uL Normal 1.8-7.7 [facility] Comment on above: Performed By: #### M G, CMP, PT, PTT, CBC #### [place] [address] [place] Neutrophils/100 WBC (Bld) 73.6 % Normal . [facility] Comment on above: Performed By: #### M G, CMP, PT, PTT, CBC #### [address] NRBC% 0.0 /100{WBC} Normal 0-0.5 [facility] Comment on above: Performed By: #### M G, CMP, PT, PTT, CBC #### [facility] [address] [place] [address] Platelet mean volume (Bld) [Entitic vol] 7.2 fL Normal 6.6-10.1 [facility] Comment on above: Performed By: #### M G, CMP, PT, PTT, CBC #### [address] Platelets (Bld) [#/Vol] 180 10*3/uL Normal 150-450 [facility] Comment on above: Performed By: #### M G, CMP, PT, PTT, CBC #### [address] RBC (Bld) [#/Vol] 2.84 10*6/uL Low 3.90-5.60 [facility] Comment on above: Performed By: #### M G, CMP, PT, PTT, CBC #### [address] WBC (Bld) [#/Vol] 8.9 10*3/uL Normal 4.1-10.5 [facility] Comment on above: Performed By: #### M G, CMP, PT, PTT, CBC #### [address] Creatinine [Mass/volume] in Serum or PlasmaOrdered By: Farhan Hudson on 02-05-2024 Creatinine [Mass/Vol] 2.63 mg/dL 0.70-1.30 [facility] Comment on above: Delta: 3.41 on 02/03 /24-0600 Eosinophils Auto (Bld) [#/Vo l]Ordered By: Swathi Burnham on 02-05-2024 Eosinophils (Bld) [#/Vol] 0.4 10*3/uL 0.0-0.45 [facility] Eosinophils/100 WBC Auto (Bl d)Ordered By: Swathi Burnham on 02-05-2024 Eosinophils/100 WBC (Bld) 5.0 % . [facility] Erythrocyte distribution wid th Auto (RBC) [Ratio]Ordered By: Swathi Burnham on 02-05-2024 Erythrocyte distribution width (RBC) [Ratio] 17.7 % 12.0-14.8 [facility] Glucose Poct Glucometerson 0 02-05-2024 Commemt1 Glu2: Cleaned Meter Normal [facility] Comment on above: Result Comment: PERF ORMED BY: [facility] [address] [place] [address] PATHOLOGIST [employer] RAFA BYRNE M.D. Performed By: #### M G, CMP, PT, PTT, CBC #### [facility] [address] [place] [address] [place] Glucose [Mass/Vol] 221 mg/dL Normal [facility] Comment on above: Result Comment: [place] Glucose Reference Range is dependent on time and content of last meal. Glucose of more than 200 mg/dL in a nonstressed, ambulatory subject supports the diagnosis of Diabetes Mellitus. Performed By: #### M G, CMP, PT, PTT, CBC #### [facility] [address] [place] [address] [place] Glucose [Mass/Vol] 166 mg/dL Normal [facility] Comment on above: Result Comment: [place] om Glucose Reference Range is dependent on time and content of last meal. Glucose of more than 200 mg/dL in a nonstressed, ambulatory subject supports the diagnosis of Diabetes Mellitus. PERFORMED BY: [facility] [address] [place] [address] PATHOLOGIST SUPER[employer] RAFA BYRNE M.D. Performed By: #### M G, CMP, PT, PTT, CBC #### [facility] [address] [place] [address] [place] Glucose [Mass/volume] in Ser um or PlasmaOrdered By: Farhan Hudson on 02-05-2024 Glucose [Mass/Vol] 162 mg/dL 70-100 [facility] Comment on above: ADA recommended refe rence rangeRandom Glucose Reference Range is dependent on time and content of last meal. Glucose of more than 200 mg/dL in a nonstressed, ambulatory subject supports the diagnosis of Diabetes Mellitus. Hematocrit Auto (Bld) [Volum e fraction]Ordered By: Swathi Burnham on 02-05-2024 Hematocrit (Bld) [Volume fraction] 22.7 % 38.8-50.0 [facility] Hemoglobin [Mass/volume] in BloodOrdered By: Swathi Burnham on 02-05-2024 Hemoglobin (Bld) [Mass/Vol] 7.5 g/dL 13.0-17.0 [facility] Hemoglobin and Hematocriton 02-05-2024 Hematocrit (Bld) [Volume fraction] 22.7 % Low 38.8-50.0 [facility] Comment on above: Result Comment: PERF ORMED BY: [place] [address] PATHOLOGIST SU[employer] RAFA BYRNE M.D. Performed By: #### C BCNO, BMP, [id number] #### [facility] [address] [place] [address] Hemoglobin (Bld) [Mass/Vol] 7.5 g/dL Low 13.0-17.0 [facility] Comment on above: Performed By: #### C BCNO, BMP, [id number] #### [address] Leukocytes [#/volume] correc morris for nucleated erythrocytes in Blood by Automated counOrdered By: Swathi Burnham on 02-05-2024 WBC corrected for nucl RBC Auto (Bld) [#/Vol] 8.9 10*3/uL 4.1-10.5 [facility] Lymphocytes Auto (Bld) [#/Vo l]Ordered By: Swathi Burnham on 02-05-2024 Lymphocytes (Bld) [#/Vol] 1.3 10*3/uL 1.00-4.8 [facility] Lymphocytes/100 WBC Auto (Bl d)Ordered By: Swathi Burnham on 02-05-2024 Lymphocytes/100 WBC (Bld) 14.7 % . [facility] MCH Auto (RBC) [Entitic mass ]Ordered By: Swathi Burnham on 02-05-2024 MCH (RBC) [Entitic mass] 26.6 pg 27.5-35.2 [facility] MCHC Auto (RBC) [Mass/Vol]Or dered By: Swathi Burnham on 02-05-2024 MCHC (RBC) [Mass/Vol] 33.4 g/dL 32.5-35.6 [facility] MCV Auto (RBC) [Entitic vol] Ordered By: Swathi Burnham on 02-05-2024 MCV (RBC) [Entitic vol] 79.6 fL 83.5-101 F [facility] Monocytes Auto (Bld) [#/Vol] Ordered By: Swathi Burnham on 02-05-2024 Monocytes (Bld) [#/Vol] 0.5 10*3/uL 0.0-0.8 [facility] Monocytes/100 WBC Auto (Bld) Ordered By: Swathi Burnham on 02-05-2024 Monocytes/100 WBC (Bld) 6.1 % . [facility] Neutrophils Auto (Bld) [#/Vo l]Ordered By: Swathi Burnham on 02-05-2024 Neutrophils (Bld) [#/Vol] 6.6 10*3/uL 1.8-7.7 [facility] Neutrophils/100 WBC Auto (Bl d)Ordered By: Swathi Burnham on 02-05-2024 Neutrophils/100 WBC (Bld) 73.6 % . [facility] No Panel InformationOrdered By: Swathi Burnham on 02-05-2024 Bedside Glucose Comment Glu2: cleaned meter [facility] No Panel InformationOrdered By: Farhan Hudson on 02-05-2024 Estimated GFR (CKD-EPI) 25.531 mL/Min [facility] Creatinine Clearance (Chem 30.17 [facility] Nucleated erythrocytes [Pres ence] in Blood by Automated countOrdered By: Swathi Burnham on 02-05-2024 Nucleated RBC Auto Ql (Bld) 0.0 /100{WBC} 0-0.5 [facility] Phosphate [Mass/volume] in S mary or PlasmaOrdered By: Farhan Hudson on 02-05-2024 Phosphate [Mass/Vol] 3.9 mg/dL 2.5-4.5 [facility] Platelet mean volume Auto (B ld) [Entitic vol]Ordered By: Swathi Burnham on 02-05-2024 Platelet mean volume (Bld) [Entitic vol] 7.2 fL 6.6-10.1 [facility] Platelets Auto (Bld) [#/Vol] Ordered By: Swathi Burnham on 02-05-2024 Platelets (Bld) [#/Vol] 180 10*3/uL 150-450 [facility] Potassium [Moles/volume] in Serum or PlasmaOrdered By: Farhan Hudson on 02-05-2024 Potassium [Moles/Vol] 3.7 mmol/L 3.5-5.1 [facility] RBC Auto (Bld) [#/Vol]Ordere d By: Swathi Burnham on 02-05-2024 RBC (Bld) [#/Vol] 2.84 10*6/uL 3.90-5.60 [facility] Renal Function Panelon 02-04 Albumin [Mass/Vol] 2.4 g/dL Low 3.5-5.7 [facility] Comment on above: Performed By: #### C BCNO, BMP, [id number] #### [facility] [address] Anion gap [Moles/Vol] 11.1 mmol/L Normal 6.0-15.0 [facility] Comment on above: Performed By: #### C BCNO, BMP, [id number] #### [facility] [address] [place] [id number] [place] Calcium [Mass/Vol] 7.0 mg/dL Low 8.6-10.3 [facility] Comment on above: Performed By: #### C BCNO, BMP, [id number] #### [facility] [address] [place] [id number] [place] Chloride [Moles/Vol] 95 mmol/L Low 98-107 [facility] Comment on above: Performed By: #### C BCNO, BMP, [id number] #### [facility] [address] CO2 [Moles/Vol] 27.6 mmol/L Normal 21.0-31.0 [facility] Comment on above: Performed By: #### C BCNO, BMP, [id number] #### [facility] [address] Creatinine [Mass/Vol] 2.63 mg/dL Significan t change up 0.70-1.30 [facility] Comment on above: Performed By: #### C BCNO, BMP, [id number] #### [facility] [address] Creatinine Clr Calc Pharmacy 30.17 Normal [facility] Comment on above: Result Comment: PERF ORMED BY: [place] [address] PATHOLOGIST SUPER[employer] RAFA BYRNE M.D. Performed By: #### C BCNO, BMP, [id number] #### [facility] [address] GFR/1.73 sq M.predicted MDRD (S/P/Bld) [Vol rate/Area] 25.531 mL/min/{1.73_m2} [facility] Comment on above: Performed By: #### C BCNO, BMP, [id number] #### [facility] [address] Glucose [Mass/Vol] 162 mg/dL High 70-100 [facility] Comment on above: Result Comment: [place] Glucose Reference Range is dependent on time and content of last meal. Glucose of more than 200 mg/dL in a nonstressed, ambulatory subject supports the diagnosis of Diabetes Mellitus. ADA recommended reference range Performed By: #### C BCNO, BMP, [id number] #### [facility] [address] Phosphate [Mass/Vol] 3.9 mg/dL Normal 2.5-4.5 [facility] Comment on above: Performed By: #### C BCNO, BMP, [id number] #### [facility] [address] Potassium [Moles/Vol] 3.7 mmol/L Normal 3.5-5.1 [facility] Comment on above: Performed By: #### C BCNO, BMP, [id number] #### [facility] [address] [place] [address] Sodium [Moles/Vol] 130 mmol/L Low 136-145 [facility] Comment on above: Performed By: #### C BCNO, BMP, [id number] #### [facility] [address] [place] [address] Urea nitrogen [Mass/Vol] 35 mg/dL High 06-12 [facility] Comment on above: Performed By: #### C BCNO, BMP, [id number] #### [facility] [address] [place] [address] Serum or plasma anion gap de terminationOrdered By: Farhan Hudson on 02-05-2024 Anion gap [Moles/Vol] 11.1 mmol/L 6.0-15.0 [facility] Sodium [Moles/volume] in Ser um or PlasmaOrdered By: Farhan Hudson on 02-05-2024 Sodium [Moles/Vol] 130 mmol/L 136-145 [facility] Urea nitrogen [Mass/volume] in Serum or PlasmaOrdered By: Farhan Hudson on 02-05-2024 Urea nitrogen [Mass/Vol] 35 mg/dL 06-12 [facility] WBC Auto (Bld) [#/Vol]Ordere d By: Swathi Burnham on 02-05-2024 WBC (Bld) [#/Vol] 8.9 10*3/uL 4.1-10.5 [facility] Glucose Poct Glucometerson 0 02-04-2024 Glucose [Mass/Vol] 268 mg/dL Normal [facility] Comment on above: Result Comment: [place] Glucose Reference Range is dependent on time and content of last meal. Glucose of more than 200 mg/dL in a nonstressed, ambulatory subject supports the diagnosis of Diabetes Mellitus. PERFORMED BY: [place] [address] PATHOLOGIST SU[employer] RAFA BYRNE M.D. Performed By: #### M G, CMP, PT, PTT, CBC #### [facility] [address] [place] [address] [place] Commemt1 Glu2: Cleaned Meter [facility] Comment on above: Result Comment: PERF ORMED BY: [place] [address] PATHOLOGIST SU[employer] RAFA BYRNE M.D. Performed By: #### C BCNO, BMP, [id number] #### [address] Glucose [Mass/Vol] 114 mg/dL Normal [facility] Comment on above: Result Comment: [place] Glucose Reference Range is dependent on time and content of last meal. Glucose of more than 200 mg/dL in a nonstressed, ambulatory subject supports the diagnosis of Diabetes Mellitus. Performed By: #### C BCNO, BMP, [id number] #### [address] Commemt1 Glu2: Cleaned Meter [facility] Comment on above: Result Comment: PERF ORMED BY: [place] [address] PATHOLOGIST SUPER[employer] BYRNE M.D. Performed By: #### C BCNO, BMP, [id number] #### [place] [address] [place] Glucose [Mass/Vol] 188 mg/dL Normal [facility] Comment on above: Result Comment: [place] Glucose Reference Range is dependent on time and content of last meal. Glucose of more than 200 mg/dL in a nonstressed, ambulatory subject supports the diagnosis of Diabetes Mellitus. Performed By: #### C BCNO, BMP, [id number] #### [facility] [address] Renal Function Panelon 02-03 Albumin [Mass/Vol] 2.5 g/dL Low 3.5-5.7 [facility] Comment on above: Performed By: #### M G, CMP, PT, PTT, CBC #### [facility] [address] Anion gap [Moles/Vol] 13.0 mmol/L Normal 6.0-15.0 [facility] Comment on above: Performed By: #### M G, CMP, PT, PTT, CBC #### [address] Calcium [Mass/Vol] 7.4 mg/dL Low 8.6-10.3 [facility] Comment on above: Performed By: #### M G, CMP, PT, PTT, CBC #### [address] Chloride [Moles/Vol] 93 mmol/L Low 98-107 [facility] Comment on above: Performed By: #### M G, CMP, PT, PTT, CBC #### [address] CO2 [Moles/Vol] 27.9 mmol/L Normal 21.0-31.0 [facility] Comment on above: Performed By: #### M G, CMP, PT, PTT, CBC #### [address] Creatinine [Mass/Vol] 3.41 mg/dL Significan t change up 0.70-1.30 [facility] Comment on above: Performed By: #### M G, CMP, PT, PTT, CBC #### [facility] [address] [place] [address] Creatinine Clr Calc Pharmacy 23.27 [facility] Comment on above: Result Comment: PERF ORMED BY: [place] [address] PATHOLOGIST SU[employer]RNE M.D. Performed By: #### M G, CMP, PT, PTT, CBC #### [facility] [address] [place] [address] [place] GFR/1.73 sq M.predicted MDRD (S/P/Bld) [Vol rate/Area] 18.694 mL/min/{1.73_m2} Normal [facility] Comment on above: Performed By: #### M G, CMP, PT, PTT, CBC #### [facility] [address] Glucose [Mass/Vol] 164 mg/dL High 70-100 [facility] Comment on above: Result Comment: [facility] Glucose Reference Range is dependent on time and content of last meal. Glucose of more than 200 mg/dL in a nonstressed, ambulatory subject supports the diagnosis of Diabetes Mellitus. ADA recommended reference range Performed By: #### M G, CMP, PT, PTT, CBC #### [facility] [address] Phosphate [Mass/Vol] 5.6 mg/dL High 2.5-4.5 [facility] Comment on above: Performed By: #### M G, CMP, PT, PTT, CBC #### [facility] [address] Potassium [Moles/Vol] 3.9 mmol/L Normal 3.5-5.1 [facility] Comment on above: Performed By: #### M G, CMP, PT, PTT, CBC #### [facility] [address] [place] [address] [place] Sodium [Moles/Vol] 130 mmol/L Low 136-145 [facility] Comment on above: Performed By: #### M G, CMP, PT, PTT, CBC #### [facility] [address] [place] [address] [place] Urea nitrogen [Mass/Vol] 50 mg/dL High 7-25 [facility] Comment on above: Performed By: #### M G, CMP, PT, PTT, CBC #### [facility] [address] [place] [address] [place] Alanine aminotransferase [En zymatic activity/volume] in Serum or PlasmaOrdered By: Farhan Hudson on 02-03-2024 ALT [Catalytic activity/Vol] 14 U/L 7-52 [facility] Alkaline phosphatase [Enzyma tic activity/volume] in Serum or PlasmaOrdered By: Farhan Hudson on 02-03-2024 ALP [Catalytic activity/Vol] 157 U/L 34-104 [facility] Aspartate aminotransferase [ Enzymatic activity/volume] in Serum or PlasmaOrdered By: Farhan Hudson on 02-03-2024 AST [Catalytic activity/Vol] 15 U/L 13-39 [facility] Bilirubin.direct [Mass/volum e] in Serum or PlasmaOrdered By: Farhan Hudson on 02-03-2024 Bilirubin.direct [Mass/Vol] 0.20 mg/dL 0.03-0.18 [facility] Bilirubin.total [Mass/volume ] in Serum or PlasmaOrdered By: Farhan Hudson on 02-03-2024 Bilirubin [Mass/Vol] 0.6 mg/dL 0.3-1.0 [facility] Complete Blood Count Auto Di ffon 02-03-2024 Basophils (Bld) [#/Vol] 0.1 10*3/uL Normal 0.0-0.2 [facility] Comment on above: Result Comment: PERF ORMED BY: [place] [address] PATHOLOGIST SU[employer] RAFA BYRNE M.D. Performed By: #### M G, CMP, PT, PTT, CBC #### [facility] [address] [place] [address] Basophils/100 WBC (Bld) 1.2 % Normal . [facility] Comment on above: Performed By: #### M G, CMP, PT, PTT, CBC #### [facility] [address] [place] [address] [place] Eosinophils (Bld) [#/Vol] 0.4 10*3/uL Normal 0.0-0.45 [facility] Comment on above: Performed By: #### M G, CMP, PT, PTT, CBC #### [address] Eosinophils/100 WBC (Bld) 4.3 % Normal . [facility] Comment on above: Performed By: #### M G, CMP, PT, PTT, CBC #### [address] Erythrocyte distribution width (RBC) [Ratio] 17.4 % High 12.0-14.8 [facility] Comment on above: Performed By: #### M G, CMP, PT, PTT, CBC #### [address] Hematocrit (Bld) [Volume fraction] 24.7 % Low 38.8-50.0 [facility] Comment on above: Performed By: #### M G, CMP, PT, PTT, CBC #### [address] Hemoglobin (Bld) [Mass/Vol] 8.3 g/dL Low 13.0-17.0 [facility] Comment on above: Performed By: #### M G, CMP, PT, PTT, CBC #### [address] Lymphocytes (Bld) [#/Vol] 1.7 10*3/uL Normal 1.00-4.8 [facility] Comment on above: Performed By: #### M G, CMP, PT, PTT, CBC #### [address] Lymphocytes/100 WBC (Bld) 17.0 % Normal . [facility] Comment on above: Performed By: #### M G, CMP, PT, PTT, CBC #### [address] MCH (RBC) [Entitic mass] 26.8 pg Low 27.5-35.2 [facility] Comment on above: Performed By: #### M G, CMP, PT, PTT, CBC #### [address] MCV (RBC) [Entitic vol] 79.7 fL Low 83.5-101 F [facility] Comment on above: Performed By: #### M G, CMP, PT, PTT, CBC #### [address] Mean Corpuscular HGB Conc 33.6 g/dL Normal 32.5-35.6 [facility] Comment on above: Performed By: #### M G, CMP, PT, PTT, CBC #### [place] [address] [place] Monocytes (Bld) [#/Vol] 0.5 10*3/uL Normal 0.0-0.8 [facility] Comment on above: Performed By: #### M G, CMP, PT, PTT, CBC #### [address] Monocytes/100 WBC (Bld) 5.3 % Normal . [facility] Comment on above: Performed By: #### M G, CMP, PT, PTT, CBC #### [address] Neutrophils (Bld) [#/Vol] 7.3 10*3/uL Normal 1.8-7.7 [facility] Comment on above: Performed By: #### M G, CMP, PT, PTT, CBC #### [address] Neutrophils/100 WBC (Bld) 72.2 % Normal . [facility] Comment on above: Performed By: #### M G, CMP, PT, PTT, CBC #### [place] [address] [place] NRBC% 0.1 /100{WBC} Normal 0-0.5 [facility] Comment on above: Performed By: #### M G, CMP, PT, PTT, CBC #### [facility] [address] [place] [address] Platelet mean volume (Bld) [Entitic vol] 7.1 fL Normal 6.6-10.1 [facility] Comment on above: Performed By: #### M G, CMP, PT, PTT, CBC #### [facility] [address] Platelets (Bld) [#/Vol] 228 10*3/uL Normal 150-450 [facility] Comment on above: Performed By: #### M G, CMP, PT, PTT, CBC #### [facility] [address] RBC (Bld) [#/Vol] 3.10 10*6/uL Low 3.90-5.60 [facility] Comment on above: Performed By: #### M G, CMP, PT, PTT, CBC #### [facility] [address] WBC (Bld) [#/Vol] 10.1 10*3/uL Normal 4.1-10.5 [facility] Comment on above: Performed By: #### M G, CMP, PT, PTT, CBC #### [facility] [address] Ferritinon 02-03-2024 Ferritin [Mass/Vol] 208.4 ng/mL Normal 23.9-336.2 [facility] Comment on above: Performed By: #### M G, CMP, PT, PTT, CBC #### [facility] [address] Ferritin [Mass/volume] in Se rum or PlasmaOrdered By: Farhan Hudson on 02-03-2024 Ferritin [Mass/Vol] 208.4 ng/mL 23.9-336.2 [facility] Folate [Mass/volume] in Seru m or PlasmaOrdered By: Farhan Hudson on 02-03-2024 Folate [Mass/Vol] 9.7 ng/mL >5.9 [facility] Comment on above: Folate reference ran ge: >5.9 ng/mlThe WHO technical consultation on folate and vitamin q45waansttbrysm has determined that folate concentrations lessthan 4 ng/ml are considered deficient. Globulin Calc (S) [Mass/Vol] Ordered By: Farhan Hudson on 02-03-2024 Globulin (S) [Mass/Vol] 3.7 g/dL [facility] Glucose Poct Glucometerson 0 02-03-2024 Glucose [Mass/Vol] 190 mg/dL Normal [facility] Comment on above: Result Comment: [place] Glucose Reference Range is dependent on time and content of last meal. Glucose of more than 200 mg/dL in a nonstressed, ambulatory subject supports the diagnosis of Diabetes Mellitus. PERFORMED BY: [place] [address] PATHOLOGIST [employer] RAFA BYRNE M.D. Performed By: #### C GUZMAN, BMP, [id number] #### [facility] [address] [place] [address] [place] Glucose [Mass/Vol] 235 mg/dL Normal [facility] Comment on above: Result Comment: [place] Glucose Reference Range is dependent on time and content of last meal. Glucose of more than 200 mg/dL in a nonstressed, ambulatory subject supports the diagnosis of Diabetes Mellitus. PERFORMED BY: [place] [address] PATHOLOGIST SU[employer] RAFA BYRNE M.D. Performed By: #### M G, CMP, PT, PTT, CBC #### [facility] [address] [place] [address] Glucose [Mass/Vol] 262 mg/dL Normal [facility] Comment on above: Result Comment: [place] Glucose Reference Range is dependent on time and content of last meal. Glucose of more than 200 mg/dL in a nonstressed, ambulatory subject supports the diagnosis of Diabetes Mellitus. PERFORMED BY: [place] [address] PATHOLOGIST SU[employer] BYRNE M.D. Performed By: #### C BCNO, BMP, [id number] #### [facility] [address] [place] [address] [place] Glucose [Mass/Vol] 218 mg/dL Normal [facility] Comment on above: Result Comment: [place] Glucose Reference Range is dependent on time and content of last meal. Glucose of more than 200 mg/dL in a nonstressed, ambulatory subject supports the diagnosis of Diabetes Mellitus. PERFORMED BY: [place] [address] PATHOLOGIST SU[employer]RNE M.D. Performed By: #### C BCNO, BMP, [id number] #### [facility] [address] Hepatic Panelon 02-03-2024 Albumin [Mass/Vol] 2.4 g/dL Low 3.5-5.7 [facility] Comment on above: Performed By: #### M G, CMP, PT, PTT, CBC #### [facility] [address] [place] [address] Albumin/Globulin [Mass ratio] 0.6 {ratio} Normal [facility] Comment on above: Performed By: #### M G, CMP, PT, PTT, CBC #### [facility] [address] [place] [address] ALP [Catalytic activity/Vol] 157 U/L High 34-104 [facility] Comment on above: Performed By: #### M G, CMP, PT, PTT, CBC #### [facility] [address] [place] [address] [place] ALT [Catalytic activity/Vol] 14 U/L Normal 7-52 [facility] Comment on above: Performed By: #### M G, CMP, PT, PTT, CBC #### [facility] [address] [place] [address] AST [Catalytic activity/Vol] 15 U/L Normal 13-39 [facility] Comment on above: Performed By: #### M G, CMP, PT, PTT, CBC #### [facility] [address] [place] [address] [place] Bilirubin [Mass/Vol] 0.6 mg/dL Normal 0.3-1.0 [facility] Comment on above: Performed By: #### M G, CMP, PT, PTT, CBC #### [facility] [address] Bilirubin,Indirect 0.4 mg/dL Normal [facility] Comment on above: Performed By: #### M G, CMP, PT, PTT, CBC #### [facility] [address] Bilirubin.indirect [Mass/Vol] 0.20 mg/dL High 0.03-0.18 [facility] Comment on above: Performed By: #### M G, CMP, PT, PTT, CBC #### [facility] [address] Globulin (S) [Mass/Vol] 3.7 g/dL Normal [facility] Comment on above: Performed By: #### M G, CMP, PT, PTT, CBC #### [facility] [address] Protein [Mass/Vol] 6.1 g/dL Low 6.4-8.9 [facility] Comment on above: Performed By: #### M G, CMP, PT, PTT, CBC #### [address] Iron [Mass/volume] in Serum or PlasmaOrdered By: Farhan Hudson on 02-03-2024 Iron [Mass/Vol] 169 ug/dL 50-212 [facility] Iron and TIBC Profileon 01-17 % Iron Saturation 87.6 % High 20-50 [facility] Comment on above: Performed By: #### M G, CMP, PT, PTT, CBC #### [facility] [address] Iron [Mass/Vol] 169 ug/dL Normal 50-212 [facility] Comment on above: Performed By: #### M G, CMP, PT, PTT, CBC #### [facility] [address] [place] [id number] [facility] Total Iron Binding Capacity 193 ug/dL Low 255-450 [facility] Comment on above: Performed By: #### M G, CMP, PT, PTT, CBC #### [facility] [address] [place] [id number] [facility] Transferrin [Mass/Vol] 138 mg/dL Low 203-362 [facility] Comment on above: Performed By: #### M G, CMP, PT, PTT, CBC #### [facility] [address] [place] [address] [place] Iron binding capacity [Mass/ volume] in Serum or PlasmaOrdered By: Farhan Hudson on 02-03-2024 Iron binding capacity [Mass/Vol] 193 ug/dL 255-450 [facility] Iron saturation [Mass Fracti on] in Serum or PlasmaOrdered By: Farhan Hudson on 02-03-2024 Iron saturation [Mass fraction] 87.6 % 20-50 [facility] Protein [Mass/volume] in Ser um or PlasmaOrdered By: Farhan Hudson on 02-03-2024 Protein [Mass/Vol] 6.1 g/dL 6.4-8.9 [facility] Renal Function Panelon 02-02 Anion gap [Moles/Vol] 10.2 mmol/L Normal 6.0-15.0 [facility] Comment on above: Performed By: #### M G, CMP, PT, PTT, CBC #### [facility] [address] [place] [address] [place] Calcium [Mass/Vol] 7.1 mg/dL Low 8.6-10.3 [facility] Comment on above: Performed By: #### M G, CMP, PT, PTT, CBC #### [facility] [address] [place] [address] [place] Chloride [Moles/Vol] 95 mmol/L Low 98-107 [facility] Comment on above: Performed By: #### M G, CMP, PT, PTT, CBC #### [facility] [address] [place] [id number] [place] CO2 [Moles/Vol] 28.8 mmol/L Normal 21.0-31.0 [facility] Comment on above: Performed By: #### M G, CMP, PT, PTT, CBC #### [facility] [address] [place] [address] [place] Creatinine [Mass/Vol] 2.87 mg/dL Significan t change up 0.70-1.30 [facility] Comment on above: Performed By: #### M G, CMP, PT, PTT, CBC #### [facility] [address] [place] [address] [place] Creatinine Clr Calc Pharmacy 27.45 [facility] Comment on above: Performed By: #### M G, CMP, PT, PTT, CBC #### [facility] [address] [place] [address] [place] GFR/1.73 sq M.predicted MDRD (S/P/Bld) [Vol rate/Area] 22.991 mL/min/{1.73_m2} [facility] Comment on above: Performed By: #### M G, CMP, PT, PTT, CBC #### [facility] [address] [place] [address] [place] Glucose [Mass/Vol] 157 mg/dL High 70-100 [facility] Comment on above: Result Comment: [place] Glucose Reference Range is dependent on time and content of last meal. Glucose of more than 200 mg/dL in a nonstressed, ambulatory subject supports the diagnosis of Diabetes Mellitus. ADA recommended reference range Performed By: #### M G, CMP, PT, PTT, CBC #### [facility] [address] [place] [address] [place] Phosphate [Mass/Vol] 5.0 mg/dL High 2.5-4.5 [facility] Comment on above: Performed By: #### M G, CMP, PT, PTT, CBC #### [facility] [address] [place] [address] [place] Potassium [Moles/Vol] 4.0 mmol/L Normal 3.5-5.1 [facility] Comment on above: Performed By: #### M G, CMP, PT, PTT, CBC #### [facility] [address] [place] [address] [place] Sodium [Moles/Vol] 130 mmol/L Low 136-145 [facility] Comment on above: Performed By: #### M G, CMP, PT, PTT, CBC #### [facility] [address] [place] [address] [place] Urea nitrogen [Mass/Vol] 36 mg/dL High 7-25 [facility] Comment on above: Performed By: #### M G, CMP, PT, PTT, CBC #### [facility] [address] [place] [address] Serum or plasma albumin/glob ulin mass ratioOrdered By: Farhan Hudson on 02-03-2024 Albumin/Globulin [Mass ratio] 0.6 {ratio} [facility] Serum or plasma non-glucuron idated bilirubin measurement (mass/volume)Ordered By: Farhan Hudson on 02-03-2024 Bilirubin.indirect [Mass/Vol] 0.4 mg/dL [facility] Transferrin [Mass/volume] in Serum or PlasmaOrdered By: Farhan Hudson on 02-03-2024 Transferrin [Mass/Vol] 138 mg/dL 203-362 [facility] Vit. B12/Folate Profileon Cobalamin (Vitamin B12) [Mass/Vol] 1412 pg/mL High 180-[address] [place] [address] Comment on above: Performed By: #### M G, CMP, PT, PTT, CBC #### [facility] [address] [place] [address] Folate 9.7 ng/mL Normal >5.9 [facility] Comment on above: Result Comment: Karen te reference range: >5.9 ng/ml The WHO technical consultation on folate and vitamin b12 deficiencies has determined that folate concentrations less than 4 ng/ml are considered deficient. PERFORMED BY: [place] [address] PATHOLOGIST [employer] RAFA BYRNE M.D. Performed By: #### M G, CMP, PT, PTT, CBC #### [address] Vitamin B12 ser/plasOrdered By: Farhan Hudson on 02-03-2024 Cobalamin (Vitamin B12) [Mass/Vol] 1412 pg/mL 180-[address] [place] [address] Basic Metabolic Panelon 01-17 Anion gap [Moles/Vol] 13.4 mmol/L Normal 6.0-15.0 [facility] Comment on above: Performed By: #### C BCNO, BMP, [id number] #### [facility] [address] Calcium [Mass/Vol] 7.4 mg/dL Low 8.6-10.3 [facility] Comment on above: Performed By: #### C BCNO, BMP, [id number] #### [facility] [address] [place] [address] [place] Chloride [Moles/Vol] 93 mmol/L Low 98-107 [facility] Comment on above: Performed By: #### C BCNO, BMP, [id number] #### [address] CO2 [Moles/Vol] 25.7 mmol/L Normal 21.0-31.0 [facility] Comment on above: Performed By: #### C BCNO, BMP, [id number] #### [address] Creatinine [Mass/Vol] 3.82 mg/dL Significan t change up 0.70-1.30 [facility] Comment on above: Performed By: #### C BCNO, BMP, [id number] #### [place] [address] [place] Creatinine Clr Calc Pharmacy 20.81 [facility] Comment on above: Result Comment: PERF ORMED BY: [place] [address] PATHOLOGIST [employer] RAFA BYRNE M.D. Performed By: #### C BCNO, BMP, [id number] #### [place] [address] [place] GFR/1.73 sq M.predicted MDRD (S/P/Bld) [Vol rate/Area] 16.313 mL/min/{1.73_m2} Normal [facility] Comment on above: Performed By: #### C BCNO, BMP, [id number] #### [place] [address] [place] Glucose [Mass/Vol] 168 mg/dL High 70-100 [facility] Comment on above: Result Comment: [place] Glucose Reference Range is dependent on time and content of last meal. Glucose of more than 200 mg/dL in a nonstressed, ambulatory subject supports the diagnosis of Diabetes Mellitus. ADA recommended reference range Performed By: #### C BCNO, BMP, [id number] #### [address] Potassium [Moles/Vol] 4.1 mmol/L Normal 3.5-5.1 [facility] Comment on above: Performed By: #### C BCNO, BMP, [id number] #### [address] Sodium [Moles/Vol] 128 mmol/L Low 136-145 [facility] Comment on above: Performed By: #### C BCNO, BMP, [id number] #### [address] Urea nitrogen [Mass/Vol] 51 mg/dL High 7-25 [facility] Comment on above: Performed By: #### C BCNO, BMP, [id number] #### [address] Complete Blood Count Auto Di ffon 02-02-2024 Basophils (Bld) [#/Vol] 0.1 10*3/uL Normal 0.0-0.2 [facility] Comment on above: Result Comment: PERF ORMED BY: [place] [address] PATHOLOGIST [employer] RAFA [employer]RNE M.D. Performed By: #### C BCNO, BMP, [id number] #### [place] [address] [place] Basophils/100 WBC (Bld) 1.0 % Normal . [facility] Comment on above: Performed By: #### C BCNO, BMP, [id number] #### [place] [address] [place] Eosinophils (Bld) [#/Vol] 0.4 10*3/uL Normal 0.0-0.45 [facility] Comment on above: Performed By: #### C BCNO, BMP, [id number] #### [address] Eosinophils/100 WBC (Bld) 3.1 % Normal . [facility] Comment on above: Performed By: #### C BCNO, BMP, [id number] #### [address] Erythrocyte distribution width (RBC) [Ratio] 17.3 % High 12.0-14.8 [facility] Comment on above: Performed By: #### C BCNO, BMP, [id number] #### [address] Hematocrit (Bld) [Volume fraction] 26.9 % Low 38.8-50.0 [facility] Comment on above: Performed By: #### C BCNO, BMP, [id number] #### [address] Hemoglobin (Bld) [Mass/Vol] 8.8 g/dL Low 13.0-17.0 [facility] Comment on above: Performed By: #### C BCNO, BMP, [id number] #### [address] Lymphocytes (Bld) [#/Vol] 1.8 10*3/uL Normal 1.00-4.8 [facility] Comment on above: Performed By: #### C BCNO, BMP, [id number] #### [address] Lymphocytes/100 WBC (Bld) 14.8 % Normal . [facility] Comment on above: Performed By: #### C BCNO, BMP, [id number] #### [address] MCH (RBC) [Entitic mass] 26.1 pg Low 27.5-35.2 [facility] Comment on above: Performed By: #### C BCNO, BMP, [id number] #### [facility] [address] MCV (RBC) [Entitic vol] 79.6 fL Low 83.5-101 [facility] Comment on above: Performed By: #### C BCNO, BMP, [id number] #### [facility] [address] Mean Corpuscular HGB Conc 32.8 g/dL Normal 32.5-35.6 [facility] Comment on above: Performed By: #### C BCNO, BMP, [id number] #### [address] Monocytes (Bld) [#/Vol] 0.6 10*3/uL Normal 0.0-0.8 [facility] Comment on above: Performed By: #### C BCNO, BMP, [id number] #### [address] Monocytes/100 WBC (Bld) 5.2 % Normal . [facility] Comment on above: Performed By: #### C BCNO, BMP, [id number] #### [address] Neutrophils (Bld) [#/Vol] 9.4 10*3/uL High 1.8-7.7 [facility] Comment on above: Performed By: #### C BCNO, BMP, [id number] #### [place] [address] [place] Neutrophils/100 WBC (Bld) 75.9 % Normal . [facility] Comment on above: Performed By: #### C BCNO, BMP, [id number] #### [address] NRBC% 0.0 /100{WBC} Normal 0-0.5 [facility] Comment on above: Performed By: #### C BCNO, BMP, [id number] #### [facility] [address] Platelet mean volume (Bld) [Entitic vol] 7.2 fL Normal 6.6-10.1 [facility] Comment on above: Performed By: #### C BCNO, BMP, [id number] #### [facility] [address] Platelets (Bld) [#/Vol] 276 10*3/uL Normal 150-450 [facility] Comment on above: Performed By: #### C BCNO, BMP, [id number] #### [address] RBC (Bld) [#/Vol] 3.37 10*6/uL Low 3.90-5.60 [facility] Comment on above: Performed By: #### C BCNO, BMP, [id number] #### [address] WBC (Bld) [#/Vol] 12.4 10*3/uL High 4.1-10.5 [facility] Comment on above: Performed By: #### C BCNO, BMP, [id number] #### [address] Glucose Poct Glucometerson 0 3- Glucose [Mass/Vol] 190 mg/dL Normal [facility] Comment on above: Result Comment: [facility] Glucose Reference Range is dependent on time and content of last meal. Glucose of more than 200 mg/dL in a nonstressed, ambulatory subject supports the diagnosis of Diabetes Mellitus. PERFORMED BY: [place] [address] PATHOLOGIST [employer] RAFA [employer]RNE M.D. Performed By: #### C BCNO, BMP, [id number] #### [address] Commemt1 Glu2: Cleaned Meter Normal [facility] Comment on above: Result Comment: PERF ORMED BY: [place] [address] PATHOLOGIST [employer]RNE M.D. Performed By: #### M G, CMP, PT, PTT, CBC #### [address] Glucose [Mass/Vol] 164 mg/dL Normal [facility] Comment on above: Result Comment: [place] om Glucose Reference Range is dependent on time and content of last meal. Glucose of more than 200 mg/dL in a nonstressed, ambulatory subject supports the diagnosis of Diabetes Mellitus. Performed By: #### M G, CMP, PT, PTT, CBC #### [address] Commemt1 Glu2: Cleaned Meter Normal [facility] Comment on above: Result Comment: PERF ORMED BY: [place] [address] PATHOLOGIST [employer]NE M.D. Performed By: #### M G, CMP, PT, PTT, CBC #### [address] Glucose [Mass/Vol] 178 mg/dL Normal [facility] Comment on above: Result Comment: [place] om Glucose Reference Range is dependent on time and content of last meal. Glucose of more than 200 mg/dL in a nonstressed, ambulatory subject supports the diagnosis of Diabetes Mellitus. Performed By: #### M G, CMP, PT, PTT, CBC #### [address] Activated partial thrombopla stin time (aPTT) in platelet poor plasma by coagulation aOrdered By: Farhan Hudson on 02-01-2024 aPTT Coag (PPP) [Time] 36.7 s 25.1-36.5 [facility] Comment on above: A hematocrit value g reater than 55% may lead to inaccurate results in coagulation testing. Patients having hematocrit values >55% require a special collection tube for coagulation studies. Please contact the laboratory at [phone] for redraw instructions. Basic Metabolic Panelon 01-17 Anion gap [Moles/Vol] 13.6 mmol/L Normal 6.0-15.0 [facility] Comment on above: Performed By: #### C BCNO, BMP, [id number] #### [facility] [address] Calcium [Mass/Vol] 7.0 mg/dL Low 8.6-10.3 [facility] Comment on above: Performed By: #### C BCNO, BMP, [id number] #### [facility] [address] Chloride [Moles/Vol] 96 mmol/L Low 98-107 [facility] Comment on above: Performed By: #### C BCNO, BMP, [id number] #### [facility] [address] CO2 [Moles/Vol] 27.5 mmol/L Normal 21.0-31.0 [facility] Comment on above: Performed By: #### C BCNO, BMP, [id number] #### [facility] [address] [place] [address] [place] Creatinine [Mass/Vol] 2.98 mg/dL High 0.70-1.30 [facility] Comment on above: Performed By: #### C BCNO, BMP, [id number] #### [facility] [address] [place] [address] [place] Creatinine Clr Calc Pharmacy 26.53 Normal [facility] Comment on above: Result Comment: PERF ORMED BY: [facility] [address] [place] [address] PATHOLOGIST [employer] RA[employer]RNE M.D. Performed By: #### C BCNO, BMP, [id number] #### [facility] [address] [place] [address] [place] GFR/1.73 sq M.predicted MDRD (S/P/Bld) [Vol rate/Area] 21.976 mL/min/{1.73_m2} [facility] Comment on above: Performed By: #### C BCNO, BMP, [id number] #### [facility] [address] Glucose [Mass/Vol] 169 mg/dL High 70-100 [facility] Comment on above: Result Comment: [facility] Glucose Reference Range is dependent on time and content of last meal. Glucose of more than 200 mg/dL in a nonstressed, ambulatory subject supports the diagnosis of Diabetes Mellitus. ADA recommended reference range Performed By: #### C BCNO, BMP, [id number] #### [facility] [address] Potassium [Moles/Vol] 4.1 mmol/L Normal 3.5-5.1 [facility] Comment on above: Performed By: #### C BCNO, BMP, [id number] #### [facility] [address] [place] [address] Sodium [Moles/Vol] 133 mmol/L Low 136-145 [facility] Comment on above: Performed By: #### C BCNO, BMP, [id number] #### [facility] [address] [place] [address] Urea nitrogen [Mass/Vol] 35 mg/dL High 7-25 [facility] Comment on above: Performed By: #### C BCNO, BMP, [id number] #### [facility] [address] [place] [address] Coagulation Profileon 2023 aPTT Coag (Bld) [Time] 36.7 s High 25.1-36.5 [facility] Comment on above: Result Comment: A he matocrit value greater than 55% may lead to inaccurate results in coagulation testing. Patients having hematocrit values >55% require a special collection tube for coagulation studies. Please contact the laboratory at [phone] for redraw instructions. PERFORMED BY: [place] [address] PATHOLOGIST [employer] RAFA [employer]RNE M.D. Performed By: #### C BCNO, BMP, MG #### [facility] [address] [place] [address] Complete Blood Count Auto Di ffon 02-01-2024 Basophils (Bld) [#/Vol] 0.1 10*3/uL Normal 0.0-0.2 [facility] Comment on above: Result Comment: PERF ORMED BY: [place] [address] PATHOLOGIST [employer] RA[employer]NE M.D. Performed By: #### C BCNO, BMP, [id number] #### [address] Basophils/100 WBC (Bld) 0.9 % Normal . [facility] Comment on above: Performed By: #### C BCNO, BMP, [id number] #### [address] Eosinophils (Bld) [#/Vol] 0.2 10*3/uL Normal 0.0-0.45 [facility] Comment on above: Performed By: #### C BCNO, BMP, [id number] #### [address] Eosinophils/100 WBC (Bld) 2.0 % Normal . [facility] Comment on above: Performed By: #### C BCNO, BMP, [id number] #### [address] Erythrocyte distribution width (RBC) [Ratio] 17.2 % High 12.0-14.8 [facility] Comment on above: Performed By: #### C BCNO, BMP, [id number] #### [address] Hematocrit (Bld) [Volume fraction] 25.7 % Low 38.8-50.0 [facility] Comment on above: Performed By: #### C BCNO, BMP, [id number] #### [address] Hemoglobin (Bld) [Mass/Vol] 8.7 g/dL Low 13.0-17.0 [facility] Comment on above: Performed By: #### C BCNO, BMP, [id number] #### [address] Lymphocytes (Bld) [#/Vol] 1.2 10*3/uL Normal 1.00-4.8 [facility] Comment on above: Performed By: #### C BCNO, BMP, [id number] #### [address] Lymphocytes/100 WBC (Bld) 10.2 % Normal . [facility] Comment on above: Performed By: #### C BCNO, BMP, [id number] #### [address] MCH (RBC) [Entitic mass] 26.8 pg Low 27.5-35.2 [facility] Comment on above: Performed By: #### C BCNO, BMP, [id number] #### [address] MCV (RBC) [Entitic vol] 79.4 fL Low 83.5-101 F [facility] Comment on above: Performed By: #### C BCNO, BMP, [id number] #### [address] Mean Corpuscular HGB Conc 33.8 g/dL Normal 32.5-35.6 [facility] Comment on above: Performed By: #### C BCNO, BMP, [id number] #### [address] Monocytes (Bld) [#/Vol] 0.6 10*3/uL Normal 0.0-0.8 [facility] Comment on above: Performed By: #### C BCNO, BMP, [id number] #### [address] Monocytes/100 WBC (Bld) 4.9 % Normal . [facility] Comment on above: Performed By: #### C BCNO, BMP, [id number] #### [facility] [address] [place] [address] Neutrophils (Bld) [#/Vol] 9.4 10*3/uL High 1.8-7.7 [facility] Comment on above: Performed By: #### C BCNO, BMP, [id number] #### [address] Neutrophils/100 WBC (Bld) 82.0 % Normal . [facility] Comment on above: Performed By: #### C BCNO, BMP, [id number] #### [address] NRBC% 0.0 /100{WBC} Normal 0-0.5 [facility] Comment on above: Performed By: #### C BCNO, BMP, [id number] #### [address] Platelet mean volume (Bld) [Entitic vol] 7.3 fL Normal 6.6-10.1 [facility] Comment on above: Performed By: #### C BCNO, BMP, [id number] #### [address] Platelets (Bld) [#/Vol] 285 10*3/uL Normal 150-450 [facility] Comment on above: Performed By: #### C BCNO, BMP, [id number] #### [address] RBC (Bld) [#/Vol] 3.24 10*6/uL Low 3.90-5.60 [facility] Comment on above: Performed By: #### C BCNO, BMP, [id number] #### [address] WBC (Bld) [#/Vol] 11.4 10*3/uL High 4.1-10.5 [facility] Comment on above: Performed By: #### C BCNO, BMP, [id number] #### [facility] [address] [place] [id number] [place] Glucose Poct Glucometerson 0 02-01-2024 Glucose [Mass/Vol] 222 mg/dL Normal [facility] Comment on above: Result Comment: [place] om Glucose Reference Range is dependent on time and content of last meal. Glucose of more than 200 mg/dL in a nonstressed, ambulatory subject supports the diagnosis of Diabetes Mellitus. PERFORMED BY: [facility] [address] [place] [address] PATHOLOGIST [employer]NE M.D. Performed By: #### C JOMAR HINDS, [id number] #### [facility] [address] [place] [address] [place] Glucose [Mass/Vol] 207 mg/dL Normal [facility] Comment on above: Result Comment: [place] om Glucose Reference Range is dependent on time and content of last meal. Glucose of more than 200 mg/dL in a nonstressed, ambulatory subject supports the diagnosis of Diabetes Mellitus. PERFORMED BY: [place] [address] PATHOLOGIST SU[employer]NE M.D. Performed By: #### M G, CMP, PT, PTT, CBC #### [address] Glucose [Mass/Vol] 243 mg/dL Normal [facility] Comment on above: Result Comment: [place] om Glucose Reference Range is dependent on time and content of last meal. Glucose of more than 200 mg/dL in a nonstressed, ambulatory subject supports the diagnosis of Diabetes Mellitus. PERFORMED BY: [facility] [address] [place] [id number] PATHOLOGIST [employer]RNE M.D. Performed By: #### C GUZMAN, BMP, [id number] #### [facility] [address] [place] [id number] [place] Glucose [Mass/Vol] 202 mg/dL Normal [facility] Comment on above: Result Comment: [place] om Glucose Reference Range is dependent on time and content of last meal. Glucose of more than 200 mg/dL in a nonstressed, ambulatory subject supports the diagnosis of Diabetes Mellitus. PERFORMED BY: [place] [address] PATHOLOGIST SU[employer]RNE M.D. Performed By: #### M G, CMP, PT, PTT, CBC #### [facility] [address] [place] [id number] [facility] INR in Platelet poor plasma by Coagulation assayOrdered By: Farhan Hudson on 02-01-2024 INR Coag (PPP) [Relative time] 1.9 {INR} Normal [facility] Comment on above: INR Therapeutic Rang e [...] valves: 3 - 4.5 Performed By: #### C BCNO, BMP, MG #### [facility] [address] [place], [place] [id number] [facility] Prothrombin time (PT)Ordered By: Farhan Hudson on 02-01-2024 PT Coag (PPP) [Time] 21.5 s High 9.0-12.9 [facility] Comment on above: A hematocrit value g reater than 55% may lead to inaccurate results in coagulation testing. Patients having hematocrit values >55% require a special collection tube for coagulation studies. Please contact the laboratory at [phone] for redraw instructions. Result Comment: A he matocrit value greater than 55% may lead to inaccurate results in coagulation testing. Patients having hematocrit values >55% require a special collection tube for coagulation studies. Please contact the laboratory at [phone] for redraw instructions. Performed By: #### C BCNO, BMP, MG #### [address] Basic Metabolic Panelon 01-17 Anion gap [Moles/Vol] 11.9 mmol/L Normal 6.0-15.0 [facility] Comment on above: Performed By: #### M G, CMP, PT, PTT, CBC #### [address] Calcium [Mass/Vol] 7.0 mg/dL Low 8.6-10.3 [facility] Comment on above: Performed By: #### M G, CMP, PT, PTT, CBC #### [address] Chloride [Moles/Vol] 96 mmol/L Low 98-107 [facility] Comment on above: Performed By: #### M G, CMP, PT, PTT, CBC #### [address] CO2 [Moles/Vol] 26.9 mmol/L Normal 21.0-31.0 [facility] Comment on above: Performed By: #### M G, CMP, PT, PTT, CBC #### [address] Creatinine [Mass/Vol] 3.23 mg/dL Significan t change up 0.70-1.30 [facility] Comment on above: Performed By: #### M G, CMP, PT, PTT, CBC #### [place] [address] [place] Creatinine Clr Calc Pharmacy 24.52 Normal [facility] Comment on above: Result Comment: PERF ORMED BY: [place] [address] PATHOLOGIST SUPERVISOR [employer] RAFA BRYNE M.D. Performed By: #### M G, CMP, PT, PTT, CBC #### [address] [address] [place] GFR/1.73 sq M.predicted MDRD (S/P/Bld) [Vol rate/Area] 19.951 mL/min/{1.73_m2} Normal [facility] Comment on above: Performed By: #### M G, CMP, PT, PTT, CBC #### [facility] [address] Glucose [Mass/Vol] 128 mg/dL High 70-100 [facility] Comment on above: Result Comment: [facility] Glucose Reference Range is dependent on time and content of last meal. Glucose of more than 200 mg/dL in a nonstressed, ambulatory subject supports the diagnosis of Diabetes Mellitus. ADA recommended reference range Performed By: #### M G, CMP, PT, PTT, CBC #### [facility] [address] Potassium [Moles/Vol] 3.8 mmol/L Normal 3.5-5.1 [facility] Comment on above: Performed By: #### M G, CMP, PT, PTT, CBC #### [facility] [address] [place] [address] [place] Sodium [Moles/Vol] 131 mmol/L Low 136-145 [facility] Comment on above: Performed By: #### M G, CMP, PT, PTT, CBC #### [facility] [address] [place] [address] [place] Urea nitrogen [Mass/Vol] 46 mg/dL High 7-25 [facility] Comment on above: Performed By: #### M G, CMP, PT, PTT, CBC #### [facility] [address] Complete Blood Count Auto Di ffon 01-31-2024 Basophils (Bld) [#/Vol] 0.1 10*3/uL Normal 0.0-0.2 [facility] Comment on above: Result Comment: PERF ORMED BY: [place] [address] PATHOLOGIST SUPERVISOR [employer] RAFA BYRNE M.D. Performed By: #### M G, CMP, PT, PTT, CBC #### [address] Basophils/100 WBC (Bld) 0.7 % Normal . [facility] Comment on above: Performed By: #### M G, CMP, PT, PTT, CBC #### [address] Eosinophils (Bld) [#/Vol] 0.3 10*3/uL Normal 0.0-0.45 [facility] Comment on above: Performed By: #### M G, CMP, PT, PTT, CBC #### [address] Eosinophils/100 WBC (Bld) 2.3 % Normal . [facility] Comment on above: Performed By: #### M G, CMP, PT, PTT, CBC #### [address] Erythrocyte distribution width (RBC) [Ratio] 17.5 % High 12.0-14.8 [facility] Comment on above: Performed By: #### M G, CMP, PT, PTT, CBC #### [address] Hematocrit (Bld) [Volume fraction] 25.6 % Low 38.8-50.0 [facility] Comment on above: Performed By: #### M G, CMP, PT, PTT, CBC #### [address] Hemoglobin (Bld) [Mass/Vol] 8.6 g/dL Low 13.0-17.0 [facility] Comment on above: Performed By: #### M G, CMP, PT, PTT, CBC #### [address] Lymphocytes (Bld) [#/Vol] 1.3 10*3/uL Normal 1.00-4.8 [facility] Comment on above: Performed By: #### M G, CMP, PT, PTT, CBC #### [place] [id number] [place] Lymphocytes/100 WBC (Bld) 10.4 % Normal . [facility] Comment on above: Performed By: #### M G, CMP, PT, PTT, CBC #### [address] MCH (RBC) [Entitic mass] 26.7 pg Low 27.5-35.2 [facility] Comment on above: Performed By: #### M G, CMP, PT, PTT, CBC #### [address] MCV (RBC) [Entitic vol] 79.0 fL Low 83.5-101 [facility] Comment on above: Performed By: #### M G, CMP, PT, PTT, CBC #### [address] Mean Corpuscular HGB Conc 33.7 g/dL Normal 32.5-35.6 [facility] Comment on above: Performed By: #### M G, CMP, PT, PTT, CBC #### [address] Monocytes (Bld) [#/Vol] 0.6 10*3/uL Normal 0.0-0.8 [facility] Comment on above: Performed By: #### M G, CMP, PT, PTT, CBC #### [address] Monocytes/100 WBC (Bld) 4.9 % Normal . [facility] Comment on above: Performed By: #### M G, CMP, PT, PTT, CBC #### [place] [address] [place] Neutrophils (Bld) [#/Vol] 10.0 10*3/uL High 1.8-7.7 [facility] Comment on above: Performed By: #### M G, CMP, PT, PTT, CBC #### [address] Neutrophils/100 WBC (Bld) 81.7 % Normal . [facility] Comment on above: Performed By: #### M G, CMP, PT, PTT, CBC #### [address] NRBC% 0.0 /100{WBC} Normal 0-0.5 [facility] Comment on above: Performed By: #### M G, CMP, PT, PTT, CBC #### [address] Platelet mean volume (Bld) [Entitic vol] 7.2 fL Normal 6.6-10.1 [facility] Comment on above: Performed By: #### M G, CMP, PT, PTT, CBC #### [address] Platelets (Bld) [#/Vol] 254 10*3/uL Normal 150-450 [facility] Comment on above: Performed By: #### M G, CMP, PT, PTT, CBC #### [address] RBC (Bld) [#/Vol] 3.24 10*6/uL Low 3.90-5.60 [facility] Comment on above: Performed By: #### M G, CMP, PT, PTT, CBC #### [address] WBC (Bld) [#/Vol] 12.2 10*3/uL High 4.1-10.5 [facility] Comment on above: Performed By: #### M G, CMP, PT, PTT, CBC #### [address] Glucose Poct Glucometerson 0 01-31-2024 Glucose [Mass/Vol] 116 mg/dL Normal [facility] Comment on above: Result Comment: [facility] Glucose Reference Range is dependent on time and content of last meal. Glucose of more than 200 mg/dL in a nonstressed, ambulatory subject supports the diagnosis of Diabetes Mellitus. PERFORMED BY: [place] [address] PATHOLOGIST SUPERVISOR [employer] RAFA BYRNE M.D. Performed By: #### C BCNO, BMP, [id number] #### [address] Glucose [Mass/Vol] 191 mg/dL Normal [facility] Comment on above: Result Comment: [place] Glucose Reference Range is dependent on time and content of last meal. Glucose of more than 200 mg/dL in a nonstressed, ambulatory subject supports the diagnosis of Diabetes Mellitus. PERFORMED BY: [place] [address] PATHOLOGIST SUPERVISOR [employer] RAFA BYREN M.D. Performed By: #### C BCNO, BMP, [id number] #### [address] Glucose [Mass/Vol] 145 mg/dL Normal [facility] Comment on above: Result Comment: [place] Glucose Reference Range is dependent on time and content of last meal. Glucose of more than 200 mg/dL in a nonstressed, ambulatory subject supports the diagnosis of Diabetes Mellitus. PERFORMED BY: [place] [address] PATHOLOGIST SUPERVISOR [employer] RAFA BYRNE M.D. Performed By: #### C GUZMAN BMP, MG #### [address] Albumin Levelon 01-30-2024 Albumin [Mass/Vol] 2.3 g/dL Low 3.5-5.7 [facility] Comment on above: Result Comment: PERF ORMED BY: [place] [address] PATHOLOGIST SUPERVISOR [employer] RAFA BYRNE M.D. Performed By: #### M G, CMP, PT, PTT, CBC #### [facility] [address] [place] [address] Basic Metabolic Panelon 01-17 Anion gap [Moles/Vol] 15.3 mmol/L High 6.0-15.0 [facility] Comment on above: Performed By: #### M G, CMP, PT, PTT, CBC #### [facility] [address] Calcium [Mass/Vol] 7.1 mg/dL Low 8.6-10.3 [facility] Comment on above: Performed By: #### M G, CMP, PT, PTT, CBC #### [facility] [address] [place] [address] [place] Chloride [Moles/Vol] 95 mmol/L Low 98-107 [facility] Comment on above: Performed By: #### M G, CMP, PT, PTT, CBC #### [facility] [address] CO2 [Moles/Vol] 21.9 mmol/L Normal 21.0-31.0 [facility] Comment on above: Performed By: #### M G, CMP, PT, PTT, CBC #### [facility] [address] Creatinine [Mass/Vol] 4.57 mg/dL Significan t change up 0.70-1.30 [facility] Comment on above: Performed By: #### M G, CMP, PT, PTT, CBC #### [facility] [address] Creatinine Clr Calc Pharmacy 17.22 [facility] Comment on above: Result Comment: PERF ORMED BY: [place] [address] PATHOLOGIST SUPERVISOR [employer] RAFA BYRNE M.D. Performed By: #### M G, CMP, PT, PTT, CBC #### [facility] [address] [place] [address] [place] GFR/1.73 sq M.predicted MDRD (S/P/Bld) [Vol rate/Area] 13.156 mL/min/{1.73_m2} [facility] Comment on above: Performed By: #### M G, CMP, PT, PTT, CBC #### [facility] [address] [place] [address] [place] Glucose [Mass/Vol] 144 mg/dL High 70-100 [facility] Comment on above: Result Comment: [place] Glucose Reference Range is dependent on time and content of last meal. Glucose of more than 200 mg/dL in a nonstressed, ambulatory subject supports the diagnosis of Diabetes Mellitus. ADA recommended reference range Performed By: #### M G, CMP, PT, PTT, CBC #### [facility] [address] Potassium [Moles/Vol] 4.2 mmol/L Significan t change down 3.5-5.1 [facility] Comment on above: Performed By: #### M G, CMP, PT, PTT, CBC #### [facility] [address] Sodium [Moles/Vol] 128 mmol/L Low 136-145 [facility] Comment on above: Performed By: #### M G, CMP, PT, PTT, CBC #### [address] Urea nitrogen [Mass/Vol] 73 mg/dL Significant change up 7-25 [facility] Comment on above: Performed By: #### M G, CMP, PT, PTT, CBC #### [address] Complete Blood Count Auto Di ffon 01-30-2024 Basophils (Bld) [#/Vol] 0.1 10*3/uL Normal 0.0-0.2 [facility] Comment on above: Result Comment: PERF ORMED BY: [place] [address] PATHOLOGIST SUPERVIS[employer] RAFA BYRNE M.D. Performed By: #### M G, CMP, PT, PTT, CBC #### [place] [address] [place] Basophils/100 WBC (Bld) 1.0 % Normal . [facility] Comment on above: Performed By: #### M G, CMP, PT, PTT, CBC #### [facility] [address] [place] [address] [place] Eosinophils (Bld) [#/Vol] 0.2 10*3/uL Normal 0.0-0.45 [facility] Comment on above: Performed By: #### M G, CMP, PT, PTT, CBC #### [address] Eosinophils/100 WBC (Bld) 1.7 % Normal . [facility] Comment on above: Performed By: #### M G, CMP, PT, PTT, CBC #### [address] Erythrocyte distribution width (RBC) [Ratio] 17.3 % High 12.0-14.8 [facility] Comment on above: Performed By: #### M G, CMP, PT, PTT, CBC #### [address] Hematocrit (Bld) [Volume fraction] 26.3 % Low 38.8-50.0 [facility] Comment on above: Performed By: #### M G, CMP, PT, PTT, CBC #### [address] Hemoglobin (Bld) [Mass/Vol] 8.8 g/dL Low 13.0-17.0 [facility] Comment on above: Performed By: #### M G, CMP, PT, PTT, CBC #### [address] Lymphocytes (Bld) [#/Vol] 1.3 10*3/uL Normal 1.00-4.8 [facility] Comment on above: Performed By: #### M G, CMP, PT, PTT, CBC #### [address] Lymphocytes/100 WBC (Bld) 9.8 % Normal . [facility] Comment on above: Performed By: #### M G, CMP, PT, PTT, CBC #### [address] MCH (RBC) [Entitic mass] 26.6 pg Low 27.5-35.2 [facility] Comment on above: Performed By: #### M G, CMP, PT, PTT, CBC #### [facility] [address] [place] [address] MCV (RBC) [Entitic vol] 79.3 fL Low 83.5-101 F [facility] Comment on above: Performed By: #### M G, CMP, PT, PTT, CBC #### [address] Mean Corpuscular HGB Conc 33.5 g/dL Normal 32.5-35.6 [facility] Comment on above: Performed By: #### M G, CMP, PT, PTT, CBC #### [address] Monocytes (Bld) [#/Vol] 0.5 10*3/uL Normal 0.0-0.8 [facility] Comment on above: Performed By: #### M G, CMP, PT, PTT, CBC #### [address] Monocytes/100 WBC (Bld) 3.8 % Normal . [facility] Comment on above: Performed By: #### M G, CMP, PT, PTT, CBC #### [address] Neutrophils (Bld) [#/Vol] 11.3 10*3/uL High 1.8-7.7 [facility] Comment on above: Performed By: #### M G, CMP, PT, PTT, CBC #### [address] Neutrophils/100 WBC (Bld) 83.7 % Normal . [facility] Comment on above: Performed By: #### M G, CMP, PT, PTT, CBC #### [facility] [address] [place] [address] NRBC% 0.0 /100{WBC} Normal 0-0.5 [facility] Comment on above: Performed By: #### M G, CMP, PT, PTT, CBC #### [address] Platelet mean volume (Bld) [Entitic vol] 7.5 fL Normal 6.6-10.1 [facility] Comment on above: Performed By: #### M G, CMP, PT, PTT, CBC #### [facility] [address] Platelets (Bld) [#/Vol] 279 10*3/uL Normal 150-450 [facility] Comment on above: Performed By: #### M G, CMP, PT, PTT, CBC #### [facility] [address] RBC (Bld) [#/Vol] 3.32 10*6/uL Low 3.90-5.60 [facility] Comment on above: Performed By: #### M G, CMP, PT, PTT, CBC #### [address] WBC (Bld) [#/Vol] 13.6 10*3/uL High 4.1-10.5 [facility] Comment on above: Performed By: #### M G, CMP, PT, PTT, CBC #### [address] Glucose Poct Glucometerson 0 01-30-2024 Glucose [Mass/Vol] 220 mg/dL Normal [facility] Comment on above: Result Comment: [facility] Glucose Reference Range is dependent on time and content of last meal. Glucose of more than 200 mg/dL in a nonstressed, ambulatory subject supports the diagnosis of Diabetes Mellitus. PERFORMED BY: [place] [address] PATHOLOGIST SUPERVIS[employer] RAFA BYRNE M.D. Performed By: #### M G, CMP, PT, PTT, CBC #### [address] Glucose [Mass/Vol] 176 mg/dL Normal [facility] Comment on above: Result Comment: [facility] Glucose Reference Range is dependent on time and content of last meal. Glucose of more than 200 mg/dL in a nonstressed, ambulatory subject supports the diagnosis of Diabetes Mellitus. PERFORMED BY: [place] [address] PATHOLOGIST SUPERVIS[employer] RAFA BYRNE M.D. Performed By: #### M G, CMP, PT, PTT, CBC #### [address] Glucose [Mass/Vol] 294 mg/dL Normal [facility] Comment on above: Result Comment: [place] [facility] Glucose Reference Range is dependent on time and content of last meal. Glucose of more than 200 mg/dL in a nonstressed, ambulatory subject supports the diagnosis of Diabetes Mellitus. PERFORMED BY: [place] [address] PATHOLOGIST SUPERVISOR [employer] RAFA BYRNE M.D. Performed By: #### M G, CMP, PT, PTT, CBC #### [address] Glucose [Mass/Vol] 170 mg/dL Normal [facility] Comment on above: Result Comment: [place] [facility] Glucose Reference Range is dependent on time and content of last meal. Glucose of more than 200 mg/dL in a nonstressed, ambulatory subject supports the diagnosis of Diabetes Mellitus. PERFORMED BY: [place] [address] PATHOLOGIST SUPERVIS[employer] RAFA BYRNE M.D. Performed By: #### C BCNO, BMP, MG #### [address] Hepatitis Acute Panelon 01-17 HBsAg Screen Negative Normal Negative [facility] Comment on above: Performed By: #### C BCNO, BMP, [id number] #### [address] Hepatitis A Antibody IgM Negative Normal Negative [facility] Comment on above: Performed By: #### C BCNO, BMP, [id number] #### [address] Hepatitis B Core Antibody IgM Negative Normal Negative [facility] Comment on above: Performed By: #### C BCNO, BMP, [id number] #### [facility] [address] [place] [address] Hepatitis C Virus Antibody Non-Reactive Normal Non Reactive [facility] Comment on above: Performed By: #### C BCNO, BMP, [id number] #### [address] Interpretation Hepatitis C Normal . [facility] Comment on above: Result Comment: Not infected with HCV unless early or acute infection is suspected (which may be delayed in an immunocompromised individual), or other evidence exists to indicate HCV infection. Performed By: #### C BCNO, BMP, [id number] #### [address] Hepatitis B Core Antibodyon 01-30-2024 Hepatitis B Core Antibody Negative Normal Negative [facility] Comment on above: Result Comment: Perf ormed at: - [facility] [address] [id number] Dental Appliance Mechanic: Alexis Winslow PhD, Phone: [phone] PERFORMED BY: [place] [address] PATHOLOGIST SUPER[employer] RAFA BYRNE M.D. Performed By: #### C BCNO, BMP, [id number] #### [address] Hepatitis B Surface Antibody on 01-30-2024 Hepatitis B Surface Antibody Non-Reactive Normal . [facility] Comment on above: Result Comment: Non Reactive: Inconsistent with immunity, less than 10 mIU/mL Reactive: Consistent with immunity, greater than 9.9 mIU/mL Performed By: #### C BCNO, BMP, [id number] #### [address] Hepatitis B virus surface Ab [Presence] in SerumOrdered By: Lia Law on 01-30-2024 HBV surface Ab Ql (S) Non-Reactive . [facility] Comment on above: Non Reactive: Incons istent with immunity, less than 10 mIU/mL Reactive: Consistent with immunity, greater than 9.9 mIU/mL Hepatitis B virus surface Ag [Presence] in Serum or Plasma by ImmunoassayOrdered By: Lia aLw on 01-30-2024 HBV surface Ag IA Ql Negative Negative [facility] Hepatitis C virus IgG Ab [Pr esence] in Serum or Plasma by ImmunoassayOrdered By: Lia Law on 01-30-2024 HCV IgG IA Ql Non-Reactive Non Reactive [facility] Hepatitis C virus RNA [Units /volume] (viral load) in Serum or Plasma by RADHA with probOrdered By: Lia Law on 01-30-2024 HCV RNA RADHA+probe Qn N/A [facility] Hepatitis C virus RNA [log u nits/volume] (viral load) in Serum or Plasma by RADHA withOrdered By: Lia Law on 01-30-2024 HCV RNA RADHA+probe [Log units/Vol] N/A [facility] No Panel InformationOrdered By: Lia Law on 01-30-2024 Hepatitis A IgM Antibody Negative Negative [facility] Hepatitis B Core IgM Antibody Negative Negative [facility] Hepatitis B Core Total Antibody Negative Negative [facility] Comment on above: Performed at: [address] Director: Alexis Winslow PhD, Phone: [phone] Hepatitis C Interpretation See comment . [facility] Comment on above: Not infected with HC V unless early or acute infection issuspected (which may be delayed in an immunocompromisedindividual), or other evidence exists to indicate HCVinfection. Total Proteinon 01-30-2024 Protein [Mass/Vol] 6.6 g/dL Normal 6.4-8.9 [facility] Comment on above: Performed By: #### M G, CMP, PT, PTT, CBC #### [address] US arterial pvr rest [place] US arterial pvr rest [facility] [address] [place] [address] Ultrasound Report Signed Patient: Adwoa Porter MR#: [id number] 7 : 1955 Acct:[id number] Age/Sex: 68 / M ADM Date: 01/28/24 Loc: Room: [address] [place] [address] Type: ADM IN Attending Dr: Farhan Hudson [...] Raul Bravo MD01/30/2024 2:51 PM Dictation Location: [place] [address] Tech: Marline Ross Transcribed By: CONSUELO 01/30/24 1451 Dictated By: Raul Bravo MD 01/30/24 1450 Signed By: 01/30/24 1451 Normal [facility] Aerobic cultureOrdered By: Ayo Hudson on 01-29-2024 Bacteria identified Aer cx Nom (Unsp spec) 2 Days [facility] Amorphous urine sedimentOrde red By: Farhan Hudson on 01-29-2024 Amorphous sediment LM Ql (Urine sed) 2+ [LPF] [facility] Automated erythrocytes count in urine sediment (number/area)Ordered By: Farhan Hudson on 01-29-2024 RBC Auto (Urine sed) [#/Area] 20-49 [HPF] 0-4 [facility] Automated leukocytes count i n urine sediment (number/area)Ordered By: Farhan Hudson on 01-29-2024 WBC Auto (Urine sed) [#/Area] 5-9 [HPF] 0-4 [facility] Basic Metabolic Panelon 01-17 Anion gap [Moles/Vol] 18.7 mmol/L High 6.0-15.0 [facility] Comment on above: Performed By: #### M G, CMP, PT, PTT, CBC #### [facility] [address] Calcium [Mass/Vol] 7.3 mg/dL Low 8.6-10.3 [facility] Comment on above: Performed By: #### M G, CMP, PT, PTT, CBC #### [facility] [address] [place] [address] [place] Chloride [Moles/Vol] 95 mmol/L Low 98-107 [facility] Comment on above: Performed By: #### M G, CMP, PT, PTT, CBC #### [facility] [address] CO2 [Moles/Vol] 15.4 mmol/L Low 21.0-31.0 [facility] Comment on above: Performed By: #### M G, CMP, PT, PTT, CBC #### [facility] [address] [place] [address] [place] Creatinine [Mass/Vol] 5.37 mg/dL High 0.70-1.30 [facility] Comment on above: Performed By: #### M G, CMP, PT, PTT, CBC #### [facility] [address] [place] [address] [place] Creatinine Clr Calc Pharmacy 14.89 Normal [facility] Comment on above: Result Comment: PERF ORMED BY: [place] [address] PATHOLOGIST SUPER[employer] RAFA BYRNE M.D. Performed By: #### M G, CMP, PT, PTT, CBC #### [facility] [address] [place] [address] [place] GFR/1.73 sq M.predicted MDRD (S/P/Bld) [Vol rate/Area] 10.840 mL/min/{1.73_m2} Normal [facility] Comment on above: Performed By: #### M G, CMP, PT, PTT, CBC #### [facility] [address] Glucose [Mass/Vol] 211 mg/dL High 70-100 [facility] Comment on above: Result Comment: [facility] Glucose Reference Range is dependent on time and content of last meal. Glucose of more than 200 mg/dL in a nonstressed, ambulatory subject supports the diagnosis of Diabetes Mellitus. ADA recommended reference range Performed By: #### M G, CMP, PT, PTT, CBC #### [address] Potassium [Moles/Vol] 6.1 mmol/L Off scale high 3.5-5.1 [facility] Comment on above: Result Comment: Crit ical Result Called to and read back by: LEXI JOSEPH at: 01/29/2024 06:33:36 by:OSCAR Performed By: #### M G, CMP, PT, PTT, CBC #### [address] Sodium [Moles/Vol] 123 mmol/L Off scale low 136-145 [facility] Comment on above: Result Comment: Crit ical Result Called to and read back by: LEXI JOSEPH at: 01/29/2024 06:33:36 by:OSCAR Performed By: #### M G, CMP, PT, PTT, CBC #### [address] Urea nitrogen [Mass/Vol] 105 mg/dL High 7-25 [facility] Comment on above: Performed By: #### M G, CMP, PT, PTT, CBC #### [address] Bilirubin Test strip Ql (U)O rdered By: Farhan Hudson on 01-29-2024 Bilirubin Ql (U) Negative Negative [facility] Clostridium Difficileon 01-17 Clostridium Difficile Negative Normal Negative [facility] Comment on above: Order Comment: > or = to 3 loose/watery stools in the last 24 HRS? Y Is patient on promotility agents or tube feeding? N Result Comment: Test ing performed by RT-PCR PERFORMED BY: [place] [address] PATHOLOGIST SUPERVIS[employer] RAFA BYRNE M.D. Performed By: #### C BCNO, BMP, MG #### [address] Coagulation Profileon 2023 aPTT Coag (Bld) [Time] 43.4 s High 25.1-36.5 [facility] Comment on above: Result Comment: A he matocrit value greater than 55% may lead to inaccurate results in coagulation testing. Patients having hematocrit values >55% require a special collection tube for coagulation studies. Please contact the laboratory at [phone] for redraw instructions. PERFORMED BY: [place] [address] PATHOLOGIST [employer] RAFA BYRNE M.D. Performed By: #### P P #### [address] INR Coag (PPP) [Relative time] 2.6 {INR} Normal [facility] Comment on above: Result Comment: INR Therapeutic [...] 4.5 Performed By: #### P P #### [address] PT Coag (PPP) [Time] 29.2 s High 9.0-12.9 [facility] Comment on above: Result Comment: A he matocrit value greater than 55% may lead to inaccurate results in coagulation testing. Patients having hematocrit values >55% require a special collection tube for coagulation studies. Please contact the laboratory at [phone] for redraw instructions. Performed By: #### P P #### [place] [address] [place] Color Auto (U)Ordered By: Nidia Hudson on 01-29-2024 Color (U) Dark yellow Yellow [facility] Complete Blood Count Auto Di ffon 01-29-2024 Basophils (Bld) [#/Vol] 0.1 10*3/uL Normal 0.0-0.2 [facility] Comment on above: Result Comment: PERF ORMED BY: [place] [address] PATHOLOGIST SUPER[employer] RAFA BYRNE M.D. Performed By: #### M G, CMP, PT, PTT, CBC #### [address] Basophils/100 WBC (Bld) 0.7 % Normal . [facility] Comment on above: Performed By: #### M G, CMP, PT, PTT, CBC #### [place] [address] [place] Eosinophils (Bld) [#/Vol] 0.2 10*3/uL Normal 0.0-0.45 [facility] Comment on above: Performed By: #### M G, CMP, PT, PTT, CBC #### [place] [address] [place] Eosinophils/100 WBC (Bld) 1.1 % Normal . [facility] Comment on above: Performed By: #### M G, CMP, PT, PTT, CBC #### [facility] [address] [place] [address] Erythrocyte distribution width (RBC) [Ratio] 17.4 % High 12.0-14.8 [facility] Comment on above: Performed By: #### M G, CMP, PT, PTT, CBC #### [address] Hematocrit (Bld) [Volume fraction] 29.5 % Low 38.8-50.0 [facility] Comment on above: Performed By: #### M G, CMP, PT, PTT, CBC #### [address] Hemoglobin (Bld) [Mass/Vol] 9.9 g/dL Low 13.0-17.0 [facility] Comment on above: Performed By: #### M G, CMP, PT, PTT, CBC #### [address] Lymphocytes (Bld) [#/Vol] 1.3 10*3/uL Normal 1.00-4.8 [facility] Comment on above: Performed By: #### M G, CMP, PT, PTT, CBC #### [address] Lymphocytes/100 WBC (Bld) 6.8 % Normal . [facility] Comment on above: Performed By: #### M G, CMP, PT, PTT, CBC #### [address] MCH (RBC) [Entitic mass] 26.7 pg Low 27.5-35.2 [facility] Comment on above: Performed By: #### M G, CMP, PT, PTT, CBC #### [address] MCV (RBC) [Entitic vol] 79.7 fL Low 83.5-101 F [facility] Comment on above: Performed By: #### M G, CMP, PT, PTT, CBC #### [address] Mean Corpuscular HGB Conc 33.5 g/dL Normal 32.5-35.6 [facility] Comment on above: Performed By: #### M G, CMP, PT, PTT, CBC #### [address] Monocytes (Bld) [#/Vol] 0.5 10*3/uL Normal 0.0-0.8 [facility] Comment on above: Performed By: #### M G, CMP, PT, PTT, CBC #### [facility] [address] Monocytes/100 WBC (Bld) 2.7 % Normal . [facility] Comment on above: Performed By: #### M G, CMP, PT, PTT, CBC #### [facility] [address] Neutrophils (Bld) [#/Vol] 16.7 10*3/uL High 1.8-7.7 [facility] Comment on above: Performed By: #### M G, CMP, PT, PTT, CBC #### [address] Neutrophils/100 WBC (Bld) 88.7 % Normal . [facility] Comment on above: Performed By: #### M G, CMP, PT, PTT, CBC #### [facility] [address] [place] [address] NRBC% 0.0 /100{WBC} Normal 0-0.5 [facility] Comment on above: Performed By: #### M G, CMP, PT, PTT, CBC #### [address] Platelet mean volume (Bld) [Entitic vol] 7.8 fL Normal 6.6-10.1 [facility] Comment on above: Performed By: #### M G, CMP, PT, PTT, CBC #### [facility] [address] [place] [address] [place] Platelets (Bld) [#/Vol] 326 10*3/uL Normal 150-450 [facility] Comment on above: Performed By: #### M G, CMP, PT, PTT, CBC #### [address] RBC (Bld) [#/Vol] 3.71 10*6/uL Low 3.90-5.60 [facility] Comment on above: Performed By: #### M G, CMP, PT, PTT, CBC #### [facility] [address] [place] [address] [place] WBC (Bld) [#/Vol] 18.8 10*3/uL High 4.1-10.5 [facility] Comment on above: Performed By: #### M G, CMP, PT, PTT, CBC #### [place] [address] [place] Dipstick and Microscopicon 0 01-29-2024 Amorphous Sediment,Urine 2+ Normal [facility] Comment on above: Order Comment: Name Collection Type:: Voided Performed By: #### C BCNO, BMP, MG #### [address] Appearance (U) Cloudy Critically abnormal Clear [facility] Comment on above: Order Comment: Name Collection Type:: Voided Performed By: #### C BCNO, BMP, MG #### [address] Bacteria,Urine Rare High None Seen [facility] Comment on above: Order Comment: Name Collection Type:: Voided Performed By: #### C BCNO, BMP, MG #### [address] Bilirubin,Urine Negative Normal Negative [facility] Comment on above: Order Comment: Name Collection Type:: Voided Performed By: #### C BCNO, BMP, MG #### [place] [address] [place] Color (U) Dark Yellow Critically abnormal Yellow [facility] Comment on above: Order Comment: Name Collection Type:: Voided Performed By: #### C BCNO, BMP, MG #### [facility] [address] [place] [address] [place] Glucose Ql (U) 500 mg/dL High Normal [facility] Comment on above: Order Comment: Name Collection Type:: Voided Performed By: #### C BCNO, BMP, MG #### [address] [place] [address] [place] Hyaline Casts,Urine 0-8 Normal 0-8 [facility] Comment on above: Order Comment: Name Collection Type:: Voided Performed By: #### C BCNO, BMP, MG #### [address] Ketones Ql (U) Trace High Negative [facility] Comment on above: Order Comment: Name Collection Type:: Voided Performed By: #### C BCNO, BMP, MG #### [address] Leukocyte esterase Test strip Ql (U) 3+ High Negative [facility] Comment on above: Order Comment: Name Collection Type:: Voided Performed By: #### C BCNO, BMP, MG #### [address] Nitrite,Urine Negative Normal Negative [facility] Comment on above: Order Comment: Name Collection Type:: Voided Performed By: #### C BCNO, BMP, MG #### [address] Occult Blood,Urine 3+ High Negative [facility] Comment on above: Order Comment: Name Collection Type:: Voided Result Comment: PERF ORMED BY: [place] [address] PATHOLOGIST SUPER[employer] RAFA BYRNE M.D. Performed By: #### C BCNO, BMP, MG #### [address] pH (U) 5.0 [pH] Normal 5.0-9.0 [facility] Comment on above: Order Comment: Name Collection Type:: Voided Performed By: #### C BCNO, BMP, MG #### [address] Protein (U) [Mass/Vol] 100 mg/dL High Negative [facility] Comment on above: Order Comment: Name Collection Type:: Voided Performed By: #### C BCNO, BMP, MG #### [facility] [address] [place] [address] RBC,Urine 20-49 High 0-4 [facility] Comment on above: Order Comment: Name Collection Type:: Voided Performed By: #### C BCNO, BMP, MG #### [facility] [address] [place] [address] Specificy [place],Urine 1.019 Normal 1.00 1-1.03 0 [facility] Comment on above: Order Comment: Name Collection Type:: Voided Performed By: #### C BCNO, BMP, MG #### [address] Squamous Epithelial Cell,Urine 0-1 Normal 0-2 [facility] Comment on above: Order Comment: Name Collection Type:: Voided Performed By: #### C BCNO, BMP, MG #### [address] Urobilinogen,Urine Normal Normal Normal [facility] Comment on above: Order Comment: Name Collection Type:: Voided Performed By: #### C BCNO, BMP, MG #### [facility] [address] [place] [address] [place] WBC,Urine 5-9 High 0-4 [facility] Comment on above: Order Comment: Name Collection Type:: Voided Performed By: #### C BCNO, BMP, MG #### [facility] [address] [place] [address] Yeast,Urine Budding Yeast Critically abnormal None Seen [facility] Comment on above: Order Comment: Name Collection Type:: Voided Result Comment: PERF ORMED BY: [place] [address] PATHOLOGIST SUPER[employer] RAFA BYRNE M.D. Performed By: #### C BCNO, BMP, MG #### [facility] [address] [place] [address] ECG 12 lead ECGon 01-29-2024 ECG 12 lead ECG [facility] [address] [place] [address] Electrocardiograph Report Signed Patient: Adwoa Porter MR#: [id number] 7 : 1955 Acct:[id number] Age/Sex: 68 / M ADM Date: 01/28/24 Loc: Room: [address] [place] [address] Type: ADM IN Attending Dr: Farhan Hudson [...] 4 BPM Confirmed by DAVID ROOT MD ([facility]) on 01/30/2024 12:02:53 PM Referred By: Electronically Signed By:DAVID ROOT MD Transcribed By: MUS Signed By David Root MD 0 01/30/24 1202 Normal [facility] Glucose Poct Glucometerson 0 01-29-2024 Glucose [Mass/Vol] 256 mg/dL Normal [facility] Comment on above: Result Comment: [facility] Glucose Reference Range is dependent on time and content of last meal. Glucose of more than 200 mg/dL in a nonstressed, ambulatory subject supports the diagnosis of Diabetes Mellitus. PERFORMED BY: [place] [address] PATHOLOGIST SU[employer] RAFA BYRNE M.D. Performed By: #### C GUZMAN, BMP, MG #### [address] Glucose [Mass/Vol] 236 mg/dL Normal [facility] Comment on above: Result Comment: [facility] Glucose Reference Range is dependent on time and content of last meal. Glucose of more than 200 mg/dL in a nonstressed, ambulatory subject supports the diagnosis of Diabetes Mellitus. PERFORMED BY: [place] [address] PATHOLOGIST SUPER[employer] RAFA BYRNE M.D. Performed By: #### M G, CMP, PT, PTT, CBC #### [address] Glucose [Mass/Vol] 214 mg/dL Normal [facility] Comment on above: Result Comment: [place] [facility] Glucose Reference Range is dependent on time and content of last meal. Glucose of more than 200 mg/dL in a nonstressed, ambulatory subject supports the diagnosis of Diabetes Mellitus. PERFORMED BY: [place] [address] PATHOLOGIST SUPER[employer] RAFA BYRNE M.D. Performed By: #### M G, CMP, PT, PTT, CBC #### [address] Glucose [Mass/Vol] 273 mg/dL Normal [facility] Comment on above: Result Comment: [place] [facility] Glucose Reference Range is dependent on time and content of last meal. Glucose of more than 200 mg/dL in a nonstressed, ambulatory subject supports the diagnosis of Diabetes Mellitus. PERFORMED BY: [place] [address] PATHOLOGIST SUPER[employer] RAFA BYRNE M.D. Performed By: #### M G, CMP, PT, PTT, CBC #### [address] Glucose [Mass/Vol] 255 mg/dL Normal [facility] Comment on above: Result Comment: [place] [facility] Glucose Reference Range is dependent on time and content of last meal. Glucose of more than 200 mg/dL in a nonstressed, ambulatory subject supports the diagnosis of Diabetes Mellitus. PERFORMED BY: [place] [address] PATHOLOGIST SUPER[employer] RAFA BYRNE M.D. Performed By: #### C BCNO, BMP, MG #### [address] Ketones Auto test strip (U) [Mass/Vol]Ordered By: Farhan Hudson on 01-29-2024 Ketones (U) [Mass/Vol] Trace Negative [facility] Laboratory - UrinalysisOrder ed By: Farhan Hudson on 01-29-2024 Hyaline casts LM Ql (Urine sed) 0-8 [LPF] 0-8 [facility] Nitrite Test strip Ql (U)Ord ered By: Farhan Hudson on 01-29-2024 Nitrite Ql (U) Negative Negative [facility] Protein Auto test strip (U) [Mass/Vol]Ordered By: Farhan Hudson on 01-29-2024 Protein (U) [Mass/Vol] 100 mg/dL Negative [facility] Specific gravity Auto test s trip (U) [Rel density]Ordered By: Farhan Hudson on 01-29-2024 Specific gravity (U) [Rel density] 1.019 1.001-1.03 0 [facility] Squamous epithelial cells de tection in urine sediment by light microscopyOrdered By: Farhan Hudson on 01-29-2024 Epithelial cells.squamous LM Ql (Urine sed) 0-1 [HPF] 0-2 [facility] Superficial Wound Cultureon 01-29-2024 Superficial Wound Culture Light Normal Skin Cedric 2 Days PERFORMED BY: [facility] [address] [place] [address] PATHOLOGIST SUPER[employer] RAFA BYRNE M.D. Normal [facility] Comment on above: Performed By: #### M G, CMP, PT, PTT, CBC #### [facility] [address] Urine Cultureon 01-29-2024 Bacteria identified Cx Nom (U) Results called at 0841 on 02/02/24 ORGANISM: Klebsiella variicola (O:KLEVAR) Welcome Count 15,000 Organism Comments Multidrug Resistant Organism Aerobic MERCEDES Charge (NMIC56) - SUSCEPTIBILITY ORGANISM: O:KLEVAR ANTIBIOTIC INTERPRETATION MERCEDES Amikacin [...] >8 Tigecycline I 4 Tobramycin R >8 Trimethoprim/Sulfamethox azole R >2 S = SUSCEPTIBLE I = [...] RESISTANT TO ALL B-LACTAM DRUGS. PERFORMED BY: [place] [address] PATHOLOGIST SUPER[employer] RAFA BYRNE M.D. [facility] Comment on above: Performed By: #### C BCNO, BMP, MG #### [address] Urine bacteria detection by automated methodOrdered By: Farhan Hudson on 01-29-2024 Bacteria Auto Ql (U) Rare None Seen [facility] Urine clarity by refractomet ry automatedOrdered By: Farhan Hudson on 01-29-2024 Clarity Refractometry automated (U) Cloudy Clear [facility] Urine culture routineOrdered By: Farahn Hudson on 01-29-2024 Bacteria identified Cx Nom (U) Klebsiella variicola [facility] Urine glucose measurement by automated test strip (mass/volume)Ordered By: Farhan Hudson on 01-29-2024 Glucose Auto test strip (U) [Mass/Vol] 500 mg/dL Normal [facility] Urine hemoglobin detection b y automated test stripOrdered By: Farhan Hudson on 01-29-2024 Hemoglobin Auto test strip Ql (U) 3+ Negative [facility] Urine leukocyte esterase det ection by automated test stripOrdered By: Farhan Hudson on 01-29-2024 Leukocyte esterase Auto test strip Ql (U) 3+ Negative [facility] Urobilinogen Auto test strip (U) [Mass/Vol]Ordered By: Farhan Hudson on 01-29-2024 Urobilinogen (U) [Mass/Vol] Normal mg/dL Normal [facility] Yeast detection in urine sed iment by light microscopyOrdered By: Farhan Hudson on 01-29-2024 Yeast LM Ql (Urine sed) Budding yeast [HPF] Non e Seen [facility] pH Auto test strip (U)Ordere d By: Farhan Hudson on 01-29-2024 pH (U) 5.0 [pH] 5.0-9.0 [facility] Amikacin [Mass/volume] in Se rum or Plasma --randomOrdered By: Farhan Hudson on 01-28-2024 Amikacin random [Mass/Vol] See comment [facility] Comment on above: See report. Scanned copy available in EMR. Amikacin, Random ([facility])on Amikacin, Random ([facility]) Normal [facility] Comment on above: Result Comment: See report. Scanned copy available in EMR. PERFORMED BY: [place] [address] PATHOLOGIST SU[employer] RAFA BYRNE M.D. Performed By: #### M G, CMP, PT, PTT, CBC #### [facility] [address] [place] [address] [facility] B-Type Natriuretic Peptideon 01-28-2024 Natriuretic peptide B (Bld) [Mass/Vol] 1652.0 pg/mL High 5-100 [facility] Comment on above: Result Comment: PERF ORMED BY: [place] [address] PATHOLOGIST SU[employer] RAFA BYRNE M.D. Performed By: #### M G, CMP, PT, PTT, CBC #### [facility] [address] [place] [address] [place] Clostridioides difficile tox in B tcdB gene [Presence] in Stool by RADHA with probe deteOrdered By: Farhan Hudson on 01-28-2024 C. difficile toxin B tcdB gene RADHA+probe Ql (Stl) Negative Negative [facility] Comment on above: Testing performed by RT-PCR Complete Blood Count Auto Di ffon 01-28-2024 Basophils (Bld) [#/Vol] 0.1 10*3/uL Normal 0.0-0.2 [facility] Comment on above: Result Comment: PERF ORMED BY: [place] [address] PATHOLOGIST SUPER[employer] RAFA BYRNE M.D. Performed By: #### M G, CMP, PT, PTT, CBC #### [address] Basophils/100 WBC (Bld) 0.4 % Normal . F [facility] Comment on above: Performed By: #### M G, CMP, PT, PTT, CBC #### [address] Eosinophils (Bld) [#/Vol] 0.3 10*3/uL Normal 0.0-0.45 [facility] Comment on above: Performed By: #### M G, CMP, PT, PTT, CBC #### [address] Eosinophils/100 WBC (Bld) 1.6 % Normal . [facility] Comment on above: Performed By: #### M G, CMP, PT, PTT, CBC #### [facility] [address] [place] [address] Erythrocyte distribution width (RBC) [Ratio] 17.8 % High 12.0-14.8 [facility] Comment on above: Performed By: #### M G, CMP, PT, PTT, CBC #### [address] Hematocrit (Bld) [Volume fraction] 31.5 % Low 38.8-50.0 [facility] Comment on above: Performed By: #### M G, CMP, PT, PTT, CBC #### [address] Hemoglobin (Bld) [Mass/Vol] 10.3 g/dL Low 13.0-17.0 [facility] Comment on above: Performed By: #### M G, CMP, PT, PTT, CBC #### [address] Lymphocytes (Bld) [#/Vol] 1.3 10*3/uL Normal 1.00-4.8 [facility] Comment on above: Performed By: #### M G, CMP, PT, PTT, CBC #### [address] Lymphocytes/100 WBC (Bld) 6.5 % Normal . [facility] Comment on above: Performed By: #### M G, CMP, PT, PTT, CBC #### [address] MCH (RBC) [Entitic mass] 26.3 pg Low 27.5-35.2 [facility] Comment on above: Performed By: #### M G, CMP, PT, PTT, CBC #### [address] MCV (RBC) [Entitic vol] 80.4 fL Low 83.5-101 F [facility] Comment on above: Performed By: #### M G, CMP, PT, PTT, CBC #### [address] Mean Corpuscular HGB Conc 32.8 g/dL Normal 32.5-35.6 [facility] Comment on above: Performed By: #### M G, CMP, PT, PTT, CBC #### [address] Monocytes (Bld) [#/Vol] 0.7 10*3/uL Normal 0.0-0.8 [facility] Comment on above: Performed By: #### M G, CMP, PT, PTT, CBC #### [address] Monocytes/100 WBC (Bld) 3.5 % Normal . [facility] Comment on above: Performed By: #### M G, CMP, PT, PTT, CBC #### [address] Neutrophils (Bld) [#/Vol] 18.1 10*3/uL High 1.8-7.7 [facility] Comment on above: Performed By: #### M G, CMP, PT, PTT, CBC #### [address] Neutrophils/100 WBC (Bld) 88.0 % Normal . [facility] Comment on above: Performed By: #### M G, CMP, PT, PTT, CBC #### [address] NRBC% 0.1 /100{WBC} Normal 0-0.5 [facility] Comment on above: Performed By: #### M G, CMP, PT, PTT, CBC #### [address] Platelet mean volume (Bld) [Entitic vol] 7.9 fL Normal 6.6-10.1 [facility] Comment on above: Performed By: #### M G, CMP, PT, PTT, CBC #### [address] Platelets (Bld) [#/Vol] 337 10*3/uL Normal 150-450 [facility] Comment on above: Performed By: #### M G, CMP, PT, PTT, CBC #### [place] [address] [place] RBC (Bld) [#/Vol] 3.92 10*6/uL Normal 3.90-5.60 [facility] Comment on above: Performed By: #### M G, CMP, PT, PTT, CBC #### [address] WBC (Bld) [#/Vol] 20.6 10*3/uL High 4.1-10.5 [facility] Comment on above: Performed By: #### M G, CMP, PT, PTT, CBC #### [facility] [address] Comprehensive Metabolic Pane bola 01-28-2024 Albumin [Mass/Vol] 2.6 g/dL Low 3.5-5.7 [facility] Comment on above: Performed By: #### M G, CMP, PT, PTT, CBC #### [facility] [address] Albumin/Globulin [Mass ratio] 0.5 {ratio} Normal [facility] Comment on above: Performed By: #### M G, CMP, PT, PTT, CBC #### [facility] [address] ALP [Catalytic activity/Vol] 183 U/L High 34-104 [facility] Comment on above: Performed By: #### M G, CMP, PT, PTT, CBC #### [facility] [address] ALT [Catalytic activity/Vol] 32 U/L Normal 7-52 [facility] Comment on above: Performed By: #### M G, CMP, PT, PTT, CBC #### [facility] [address] [place] [address] Anion gap [Moles/Vol] 18.2 mmol/L High 6.0-15.0 [facility] Comment on above: Performed By: #### M G, CMP, PT, PTT, CBC #### [facility] [address] [place] [address] AST [Catalytic activity/Vol] 26 U/L Normal 13-39 [facility] Comment on above: Performed By: #### M G, CMP, PT, PTT, CBC #### [facility] [address] [place] [address] Bilirubin [Mass/Vol] 0.4 mg/dL Normal 0.3-1.0 [facility] Comment on above: Performed By: #### M G, CMP, PT, PTT, CBC #### [facility] [address] Calcium [Mass/Vol] 7.3 mg/dL Low 8.6-10.3 [facility] Comment on above: Performed By: #### M G, CMP, PT, PTT, CBC #### [facility] [address] Chloride [Moles/Vol] 94 mmol/L Low 98-107 [facility] Comment on above: Performed By: #### M G, CMP, PT, PTT, CBC #### [facility] [address] CO2 [Moles/Vol] 17.6 mmol/L Low 21.0-31.0 [facility] Comment on above: Performed By: #### M G, CMP, PT, PTT, CBC #### [facility] [address] Creatinine [Mass/Vol] 5.14 mg/dL High 0.70-1.30 [facility] Comment on above: Performed By: #### M G, CMP, PT, PTT, CBC #### [facility] [address] [place] [address] [place] Creatinine Clr Calc Pharmacy 15.56 [facility] Comment on above: Performed By: #### M G, CMP, PT, PTT, CBC #### [facility] [address] GFR/1.73 sq M.predicted MDRD (S/P/Bld) [Vol rate/Area] 11.425 mL/min/{1.73_m2} [facility] Comment on above: Performed By: #### M G, CMP, PT, PTT, CBC #### [facility] [address] [place] [address] [place] Globulin (S) [Mass/Vol] 4.8 g/dL [facility] Comment on above: Performed By: #### M G, CMP, PT, PTT, CBC #### [facility] [address] [place] [address] [place] Glucose [Mass/Vol] 196 mg/dL High 70-100 [facility] Comment on above: Result Comment: [facility] Glucose Reference Range is dependent on time and content of last meal. Glucose of more than 200 mg/dL in a nonstressed, ambulatory subject supports the diagnosis of Diabetes Mellitus. ADA recommended reference range Performed By: #### M G, CMP, PT, PTT, CBC #### [facility] [address] Potassium [Moles/Vol] 5.8 mmol/L High 3.5-5.1 [facility] Comment on above: Performed By: #### M G, CMP, PT, PTT, CBC #### [facility] [address] Protein [Mass/Vol] 7.4 g/dL Normal 6.4-8.9 [facility] Comment on above: Performed By: #### M G, CMP, PT, PTT, CBC #### [facility] [address] Sodium [Moles/Vol] 124 mmol/L Off scale low 136-145 [facility] Comment on above: Result Comment: Crit ical Result Called to and read back by: JORJE SALINAS at: 01/28/2024 22:55:22 by:DEE Performed By: #### M G, CMP, PT, PTT, CBC #### [facility] [address] Urea nitrogen [Mass/Vol] 93 mg/dL High 7-25 [facility] Comment on above: Performed By: #### M G, CMP, PT, PTT, CBC #### [facility] [address] Glucose Poct Glucometerson 0 01-28-2024 Glucose [Mass/Vol] 232 mg/dL Normal [facility] Comment on above: Result Comment: [facility] Glucose Reference Range is dependent on time and content of last meal. Glucose of more than 200 mg/dL in a nonstressed, ambulatory subject supports the diagnosis of Diabetes Mellitus. PERFORMED BY: [place] [address] PATHOLOGIST SUPERVISOR [employer] RAFA BYRNE M.D. Performed By: #### C BCNO, BMP, [id number] #### [facility] [address] [place], [place] [id number] [facility] Magnesiumon 01-28-2024 Magnesium [Mass/Vol] 2.2 mg/dL Normal 1.9-2.7 [facility] Comment on above: Result Comment: PERF ORMED BY: [place] [address] PATHOLOGIST SUPERVISOR [employer] RAFA BYRNE M.D. Performed By: #### M G, CMP, PT, PTT, CBC #### [facility] [address] [place] [address] Magnesium [Mass/volume] in S mary or PlasmaOrdered By: Farhan Hudson on 01-28-2024 Magnesium [Mass/Vol] 2.2 mg/dL 1.9-2.7 [facility] Natriuretic peptide B [Mass/ Vol]Ordered By: Farhan Hudson on 01-28-2024 Natriuretic peptide B (Bld) [Mass/Vol] 1652.0 pg/mL 5-100 [facility] Partial Thromboplastin Timeo n 01-28-2024 aPTT Coag (Bld) [Time] 47.6 s High 25.1-36.5 [facility] Comment on above: Result Comment: A he matocrit value greater than 55% may lead to inaccurate results in coagulation testing. Patients having hematocrit values >55% require a special collection tube for coagulation studies. Please contact the laboratory at [phone] for redraw instructions. PERFORMED BY: [place] [address] PATHOLOGIST SUPERVISOR [employer] RAFA BYRNE M.D. Performed By: #### M G, CMP, PT, PTT, CBC #### [facility] [address] [place], [place] [id number] [facility] Prothrombin Time INRon 01-27 INR Coag (PPP) [Relative time] 2.5 {INR} Normal [facility] Comment on above: Result Comment: INR Therapeutic [...] 3 - 4.5 Performed By: #### M G, CMP, PT, PTT, CBC #### [facility] [address] [place] [id number] [facility] PT Coag (PPP) [Time] 28.3 s High 9.0-12.9 [facility] Comment on above: Result Comment: A he matocrit value greater than 55% may lead to inaccurate results in coagulation testing. Patients having hematocrit values >55% require a special collection tube for coagulation studies. Please contact the laboratory at [phone] for redraw instructions. Performed By: #### M G, CMP, PT, PTT, CBC #### [facility] [address] [place] [address] [facility] Office Visiton 01-25-2024 Follow-up visit [id number] Adwoa Porter 1955 M Date Provider Department Center 01/25/2024 BRYCE TRAORE [facility] Family History Problem Relation Age of Onset Diabetes Mother Hypertension Mother Coronary artery disease Mother Family Status - Relation Status Age at Mother Level of Service:44802 ND OFFICE/OUTPATIENT ESTABLISHED MOD MDM 30 MIN Normal [facility] Bola 01-17-2024 L Specimen: [id number] Received: 01/18/24 Status: ALEJA Vences Num: [id number] Spec Type: Surgical Subm Dr: Jorge Arroyo DPM, MS Tissues: A Debridement-Skin/Other Than Skin (LT FOOT ULCER) B DIGIT AMPUTATION (LT 5TH METATARSAL) Procedures: HE/3, Gross/Micro L4, Gross/Micro L3, Decalcification Age/ Patient Sex Location Account Attending Physician Adwoa Porter 68/M LABELL [id number] Jorge Arroyo DPM, MS SPEC NUM: [id number] RECD: 01/18/24 STATUS: ALEJA VENCES NUM: [id number] DAV: 01/17/[address]: Jorge Arroyo DPM, MS ENTERED: 01/18/24-[address] [facility] [address]: Nadeen,Abrhaam SPEC TYPE: Surgical DEPT: AMARIS REBOLLAR ORDERED: [...] with a rodriguez, trabecular cut surf lupis. [employer] are submitted following decalcification in one cassette labeled B1. Specimen: [id number] Received: 01/18/24 Status: ALEJA Lisa Num: [id number] Spec Type: Surgical Subm Dr: Jorge Arroyo DPM, MS Tissues: A Debridement-Skin/Other Than Skin (LT FOOT ULCER) B DIGIT AMPUTATION (LT 5TH METATARSAL) Procedures: HE/3, Gross/Micro L4, Gross/Micro L3, Decalcification Patient: Adwoa Porter [id number] (Continued) Specimen: [id number] Received: 01/18/24 (Continued) Signed (signature on file) Chin-Jaron Navarro MD 01/22/24 1743 Specimen: [id number] Received: 01/18/24 Status: ALEJA Vences Num: [id number] Spec Type: Surgical Subm Dr: Jorge Arroyo,NELLY, MS Tissues: A Debridement-Skin/Other Than Skin (LT FOOT ULCER) B DIGIT AMPUTATION (LT 5TH METATARSAL) Procedures: HE/3, Gross/Micro L4, Gross/Micro L3, Decalcification Patient: Adwoa Porter [id number] (Continued) Specimen: [id number] Received: 01/18/24 (Continued) CPT Codes 44540o0, 48980 Specimen: [id number] Received: 01/18/24 Status: ALEJA Vences Num: [id number] Spec Type: Surgical Subm Dr: Jorge Arroyo,NELLY, MS Tissues: A Debridement-Skin/Other Than Skin (LT FOOT ULCER) B DIGIT AMPUTATION (LT 5TH METATARSAL) Procedures: HE/3, Gross/Micro L4, Gross/Micro L3, Decalcification Patient: Adwoa Porter [id number] (Continued) Signed (signature on file) Joy Navarro MD 01/22/24 1743 [facility] URINALYSISon 12-18-2023 Bilirubin Ql (U) Negative Normal NEG [facility] Comment on above: Performed By: #### U A #### [facility] ([id number]) [address] [place] [address], [place] [address] BLOOD/HGB Negative Normal NEG [facility] Comment on above: Performed By: #### U A #### [facility] ([id number]) [address] [place] [address], [place] [address] Color (U) YELLOW Normal YELLOW [facility] Comment on above: Performed By: #### U A #### [facility] ([id number]) [address] [place] [address], [place] [address] Glucose Ql (U) >1000 Abnormal NEG [facility] Comment on above: Performed By: #### U A #### [facility] ([id number]) [address] [place] [address], [place] [address] Ketones Ql (U) Negative Normal NEG [facility] Comment on above: Performed By: #### U A #### [facility] ([id number]) [address] [place] [address], [place] [address] Leukocyte esterase Test strip Ql (U) Negative Normal NEG [facility] Comment on above: Result Comment: HIGH CONCENTRATIONS OF GLUCOSE MAY DECREASE THE REACTIVITY OF THE DIPSTICK LEUKOCYTE TEST PAD. Performed By: #### U A #### [facility] ([id number]) [address] [place] [address] Nitrite Ql (U) Negative Normal NEG [facility] Comment on above: Performed By: #### U A #### [facility] ([id number]) [address] [place] [address] pH (U) 7.0 [pH] Normal 5.0-8.5 [facility] Comment on above: Performed By: #### U A #### [facility] ([id number]) [address] [place] [address] Protein Ql (U) Negative Normal NEG [facility] Comment on above: Performed By: #### U A #### [facility] ([id number]) [address] [place] [address] Specific gravity (U) [Rel density] 1.010 Normal 1.003-1.03 5 [facility] Comment on above: Performed By: #### U A #### [facility] ([id number]) [address] [place] [address] TURBIDITY CLEAR Normal CLEAR [facility] Comment on above: Performed By: #### U A #### [facility] ([id number]) [address] [place] [address] Urinalysis dipstick W Reflex Microscopic panel (U) URINE RECEIVED WITHOUT PRESERVATIVE-DELAYS IN TRANSPORT MAY AFFECT RESULTS.INTERPRET WITH CAUTION AND CLINICAL CORRELATION IS RECOMMENDED. Normal [facility] Comment on above: Performed By: #### U A #### [facility] ([id number]) [address] [place] [address] Urobilinogen Qn (U) 0.2 {Ashley'U}/dL Normal <1.1 [facility] Comment on above: Performed By: #### U A #### [facility] ([id number]) [address] [facility] [place], [place] [address] URINE CULTUREon 12-18-2023 Bacteria identified Cx Nom (U) CULTURE RESULTS NO GROWTH AT <1000 CFU/mL Normal [facility] Comment on above: Performed By: #### 6 30-4 #### [facility] ([id number]) [facility], [address] [place] [address] Office Visiton 11-26-2023 Follow-up visit [id number] Adwoa Porter 1955 M Date Provider Department Center 11/26/2023 BRYCE TRAORE RICHY [place] Family History Problem Relation Age of Onset Diabetes Mother Hypertension Mother Coronary artery disease Mother Family Status - Relation Status Age at Mother Level of Service:85444 ND OFFICE/OUTPATIENT ESTABLISHED MOD MDM 30 MIN Normal [facility] Glucose - FINGER STICKon Glucose [Mass/Vol] 529 mg/dL [employer] Other Office Visiton 09-21-2023 Follow-up visit [id number] Adwoa Porter 1955 M Date Provider Department Center 09/21/2023 SUSHIL CAO RICHY [place] Family History Problem Relation Age of Onset Diabetes Mother Hypertension Mother Coronary artery disease Mother Family Status - Relation Status Age at Mother Level of Service:78862 ND OFFICE/OUTPATIENT ESTABLISHED MOD MDM 30-39 MIN Reason for Visit and Comments: Follow-up [047620] Congestive Heart Failure [127] Normal [facility] Glucose - FINGER STICKon Glucose [Mass/Vol] 91 mg/dL [employer] Other Office Visiton 08-23-2023 Follow-up visit [id number] Adwoa Porter 1955 M Date Provider Department Center 08/23/2023 MASSIMO DYE RICHY [place] Family History Problem Relation Age of Onset Diabetes Mother Hypertension Mother Coronary artery disease Mother Family Status - Relation Status Age at Mother Level of Service:10542 ND OFFICE/OUTPATIENT ESTABLISHED HIGH MDM 40-54 MIN Reason for Visit and Comments: Wheezing [850345] Hospital Follow-up [832] [facility] Office Visiton 08-15-2023 Follow-up visit [id number] Adwoa Porter 1955 M [facility] Provider Department Center 08/15/2023 BRYCE TRAORE RICHY [place] Family History Problem Relation Age of Onset Diabetes Mother Hypertension Mother Coronary artery disease Mother Family Status - Relation Status Age at Mother Level of Service:80161 ND OFFICE/OUTPATIENT ESTABLISHED MOD MDM 30-39 MIN [facility] 36on 08-13-2023 36 Pt informed [facility] A1C HEMOGLOBINon 06-29-2023 HbA1c (Bld) [Mass fraction] 7.9 % [employer] Other Glucose - FINGER STICKon Glucose [Mass/Vol] 382 mg/dL [employer] Other HbA1c (Bld) [Mass fraction]o n 06-29-2023 A1C HEMOGLOBIN [facility] [employer] Other 36on 06-20-2023 36 His potassium on 06/18/2023 was 2.7. He needs to come to the hospital to receive IV potassium and further treatment as needed [facility] Telephoneon 06-20-2023 Telephone [id number] Adwoa Porter 1955 M Provider Department Center 06/20/2023 SUSHIL CAO RICHY [facility] Family History Problem Relation Age of Onset Diabetes Mother Hypertension Mother Coronary artery disease Mother Family Status - Relation Status Age at Mother [facility] 36on 06-19-2023 36 [facility] lab called to re port a potassium level of 2.7 today. Melissa tried to call patient to remind him of his apt tomorrow but he did not answer and had no voicemail. [facility] 36on 06-18-2023 36 [facility] lab called to re port a critical BNP of 13,277. FYI. [facility] Telephoneon 07-31-2023 Telephone [id number] Adwoa Porter 1955 M Date Provider Department Center 06/18/2023 SUSHIL CAO RICHY [facility] Family History Problem Relation Age of Onset Diabetes Mother Hypertension Mother Coronary artery disease Mother Family Status - Relation Status Age at Mother Normal [facility] Office Visiton 06-05-2023 Follow-up visit [id number] Adwoa Porter 1955 M Date Provider Department Center 06/05/2023 SUSHIL CAO RICHY [facility] Family History Problem Relation Age of Onset Diabetes Mother Hypertension Mother Coronary artery disease Mother Family Status - Relation Status Age at Mother Level of Service:35473 ND OFFICE/OUTPATIENT ESTABLISHED MOD MDM 30-39 MIN Reason for Visit and Comments: Follow-up [838252] Normal [facility] PTH INTACTon 04-12-2023 PTH, Intact 50 pg/mL Normal 15-65 [facility] Comment on above: Performed By: #### P THINT ####[facility] [address] [place] [address]Dr. Emelina Navarro HEMOGRAM AND PLATELon 2022 Hematocrit (Bld) [Volume fraction] 42.7 % Normal 42.0-54.0 [facility] Comment on above: Performed By: #### H H ####[facility] [address] [place] [address]Dr. Emelina Navarro Hemoglobin (Bld) [Mass/Vol] 14.3 g/dL Normal 14.0-18.0 [facility] Comment on above: Performed By: #### H H ####[facility] [address] [place] [address]Dr. Emelina Navarro MCH (RBC) [Entitic mass] 29.5 pg Normal 25.9-34.0 [facility] Comment on above: Performed By: #### H H ####[facility] [address] [place] [address]Dr. Emelina Navarro MCHC (RBC) [Mass/Vol] 33.5 g/dL Normal 29.9-35.2 [facility] Comment on above: Performed By: #### H H ####[facility] [address] [place] [phone]. Emelina Navarro MCV (RBC) [Entitic vol] 88.2 fL Normal 80.0-94.0 [facility] Comment on above: Performed By: #### H H ####[facility] [address] [place] [phone]. Emelina Navarro PLT 278 103/ul Normal 150-450 [facility] Comment on above: Performed By: #### H H ####[facility] [address] [place] [phone]. Emelina Navarro RBC 4.84 106/ul Normal 4.70-6.10 [facility] Comment on above: Performed By: #### H H ####[facility] [address] [place] [address]Dr. Emelina Navarro WBC 12.9 103/ul Critically high 4.0-11.0 [facility] Comment on above: Performed By: #### H H ####[facility] [address] [place] [address]Dr. Emelina Navarro MAGNESIUMon 04-11-2023 Magnesium [Mass/Vol] 2.2 mg/dL Normal 1.8-2.4 [facility] Comment on above: Performed By: #### U JOLIE, RENAL, MG ####[facility] [address] [place] [phone]. Emelina Navarro RENAL FUNCTION PANELon 04-11 Albumin [Mass/Vol] 3.6 g/dL Normal 3.4-5.0 [facility] Comment on above: Performed By: #### U JOLIE, RENAL, MG ####[facility] [address] [place] [phone]. Emelina Navarro Calcium [Mass/Vol] 9.5 mg/dL Normal 8.5-10.1 [facility] Comment on above: Performed By: #### U JOLIE, RENAL, MG ####[facility] [address] [place] [address]Dr. Emelina Navarro Chloride [Moles/Vol] 95 mmol/L Critically low 98-107 [facility] Comment on above: Performed By: #### U JOLIE, RENAL, MG ####[facility] [address] [place] [address]Dr. Emelina Navarro CO2 [Moles/Vol] 36.4 mmol/L Critically high 21.0-32.0 [facility] Comment on above: Performed By: #### U JOLIE, RENAL, MG ####[facility] [address] [place], [place] [address]Dr. Emelina Navarro Creatinine [Mass/Vol] 1.92 mg/dL Critically high 0.70-1.30 [facility] Comment on above: Performed By: #### U JOLIE, RENAL, MG ####[facility] [address] [place], [place] [address]Dr. Emelina Navarro EGFR-AF CITIZEN [place] 42 mL/min/1.73m2 Critically low >=60 [facility] Comment on above: Performed By: #### U JOLIE, RENAL, MG ####[facility] [address] [place], [place] [address]Dr. Emelina Navarro EGFR-NON AF CITIZEN OF [place] 35 mL/min/1.73m2 Critically low >=60 [facility] Comment on above: Performed By: #### U JOLIE, RENAL, MG ####[facility] [address] [place], [place] [address]Dr. Emelina Navarro Glucose [Mass/Vol] 96 mg/dL Normal 74-106 [facility] Comment on above: Performed By: #### U JOLIE, RENAL, MG ####[facility] [address] [place] [address]Dr. Emelina Navarro Phosphate [Mass/Vol] 4.0 mg/dL Normal 2.6-4.7 [facility] Comment on above: Performed By: #### U JOLIE, RENAL, MG ####[facility] [address] [place] [address]Dr. Emelina Navarro Potassium [Moles/Vol] 3.1 mmol/L Critically low 3.5-5.1 [facility] Comment on above: Performed By: #### U JOLIE, RENAL, MG ####[facility] [address] [place] [phone]. Emelina Navarro Sodium [Moles/Vol] 137 mmol/L Normal 136-145 [facility] Comment on above: Performed By: #### U JOLIE, RENAL, MG ####[facility] [address] [place] [phone]. Emelina Navarro Urea nitrogen [Mass/Vol] 31.0 mg/dL Critically high 7.0-18.0 [facility] Comment on above: Performed By: #### U JOLIE, RENAL, MG ####[facility] [address] [place] [address]Dr. Emelina Navarro UA RANDOM W/MICROSCOPICon BACTERIA NONE SEEN Normal NONE SEEN [facility] Comment on above: Performed By: #### U AMIC ####[facility] [address] [place], [place] [address]Dr. Emelina Navarro Bilirubin Ql (U) Negative Normal NEGATIVE [facility] Comment on above: Performed By: #### U AMIC ####[facility] [address] [place], [place] [address]Dr. Emelina Navarro CAST NONE SEEN Normal NONE SEEN [facility] Comment on above: Performed By: #### U AMIC ####[facility] [address] [place], [place] [address]Dr. Emelina Navarro Clarity (U) CLEAR Normal CLEAR [facility] Comment on above: Performed By: #### U AMIC ####[facility] [address] [place], [place] [address]Dr. Emelina Navarro Color (U) LT. YELLOW Normal YELLOW [facility] Comment on above: Performed By: #### U AMIC ####[facility] [address] [place], [place] [address]Dr. Emelina Navarro Crystals LM Nom (Urine sed) NONE SEEN Normal NONE SEEN [facility] Comment on above: Performed By: #### U AMIC ####[facility] [address] [place], [place] [address]Dr. Emelina Navarro Epithelial cells LM Ql (Urine sed) FEW Abnormal NONE SEEN /RARE [facility] Comment on above: Performed By: #### U AMIC ####[facility] [address] [place] [address]Dr. Emelina Navarro Glucose Ql (U) 500 mg/dl Abnormal NEGATIVE [facility] Comment on above: Performed By: #### U AMIC ####[facility] [address] [place] [address]Dr. Emelina Navarro Hemoglobin Ql (U) Negative Normal NEGATIVE [facility] Comment on above: Performed By: #### U AMIC ####[facility] [address] [place] [address]Dr. Emelina Navarro Ketones Ql (U) Negative Normal NEGATIVE [facility] Comment on above: Performed By: #### U AMIC ####[facility] [address] [place] [address]Dr. Emelina Navarro LEUKOCYTES Negative Normal NEGATIVE [facility] Comment on above: Performed By: #### U AMIC ####[facility] [address] [place], [place] [address]Dr. Emelina Navarro MUCOUS NONE SEEN Normal NONE SEEN [facility] Comment on above: Performed By: #### U AMIC ####[facility] [address] [place], [place] [address]Dr. Emelina Navarro Nitrite Ql (U) Negative Normal NEGATIVE [facility] Comment on above: Performed By: #### U AMIC ####[facility] [address] [place], [place] [address]Dr. Emelina Navarro pH (U) 6.5 [pH] Normal 5-9 [facility] Comment on above: Performed By: #### U AMIC ####[facility] [address] [place], [place] [address]Dr. Emelina Navarro RBC NONE SEEN Abnormal 0-2 [facility] Comment on above: Performed By: #### U AMIC ####[facility] [address] [place] [address]Dr. Emelina Navarro SPEC GRAVITY 1.005 Normal 1.005-<=1. 025 [facility] Comment on above: Performed By: #### U AMIC ####[facility] [address] [place] [address]Dr. Emelina Navarro UA PROTEIN Negative Normal NEGATIVE/ TRACE [facility] Comment on above: Performed By: #### U AMIC ####[facility] [address] [place] [address]Dr. Emelina Navarro Urobilinogen Qn (U) 0.2 {Ashley'U}/dL Normal 0.2 - 1. 0 [facility] Comment on above: Performed By: #### U AMIC ####[facility] [address] [place], [place] [address]Dr. Emelina Navarro WBC NONE SEEN Normal NONE SEEN [facility] Comment on above: Performed By: #### U AMIC ####[facility] [address] [place] [address]Dr. Emelina Navarro URIC ACID SERUMon 04-11-2023 Urate [Mass/Vol] 12.2 mg/dL Critically high 3.5-7.2 [facility] Comment on above: Performed By: #### U JOLIE, RENAL, MG ####[facility] [address] [place], [place] [address]Dr. Awildanitza Navarro URINE T PROTEIN CREAT RATIOo n 04-11-2023 Protein (U) [Mass/Vol] 9.3 mg/dL Normal <=12.0 [facility] Comment on above: Performed By: #### U RTPCR ####[facility] [address] [place], [place] [id number]. Emelina Navarro UR PROT CREAT RAT 0.[address] [facility] Comment on above: Performed By: #### U RTPCR ####[facility] Kbfiumggwf[address] [place], [place] [address]Dr. Awildanitza Navarro URINE CREAT 25.00 mg/dL Normal 20.00-300. 00 [facility] Comment on above: Performed By: #### U RTPCR ####[facility] T[address]zeodfaa[address] [place], [place] [address]Dr. Awildanitza Navarro VITAMIN D 25 OHon 04-11-2023 VIT D 25-OH 51.8 ng/mL Normal [facility] Comment on above: Performed By: #### V ITAD ####[facility] Mcqpxrvbgo[address] [place], [place] [address]Dr. Emelina Navarro VIT D RANGES SEE BELOW Normal [facility] Comment on above: Result Comment: <20 ng/mL Vit D deficient 20 - <30 ng/mL Vit D insufficient 30 - 100 ng/mL Vit D sufficient >100 ng/mL Potential Toxicity Performed By: #### V ITAD ####[facility] Ffffvibkpn22[address] [place], [place] [address]Dr. Emelina Ramon BNPon 03-28-2023 Natriuretic peptide B (Bld) [Mass/Vol] 7479.0 pg/mL Critically high <=900.0 [facility] Comment on above: Performed By: #### B OBSERVATION NURSE, CMP ####[facility] Xovcsmdwns[address] [place], [place] [address]Dr. Emelina Ramon CBC AUTO DIFFon 03-28-2023 BASO # 0.1 103/ul Normal 0.0-0.1 [facility] Comment on above: Performed By: #### C BC ####[facility] Fuhbvikrag[address] [place], [place] [address]Dr. Awildanitza Navarro Basophils/100 WBC (Bld) 0.5 % Normal 0.2-2.0 [facility] Comment on above: Performed By: #### C BC ####[facility] Wafntkylym[address] [place], [place] [address]Dr. Emelina Navarro EO # 0.4 103/ul Normal 0.0-0.7 [facility] Comment on above: Performed By: #### C BC ####[facility] Bubuxbphfn[address] [place], [place] [address]Dr. Emelina Navarro Eosinophils/100 WBC (Bld) 3.7 % Normal 0.9-7.0 [facility] Comment on above: Performed By: #### C BC ####[facility] Uonrshibdw[address] [place], [place] [address]Dr. Emelina Navarro Erythrocyte distribution width (RBC) [Ratio] 18.2 % Critically high 11.0-15.0 [facility] Comment on above: Performed By: #### C BC ####[facility] [address] [place] [address]DrWesley Navarro Hematocrit (Bld) [Volume fraction] 39.0 % Critically low 42.0-54.0 [facility] Comment on above: Performed By: #### C BC ####[facility] Noknwxhijy[address] [place], [place] [address]DrWesley Navarro Hemoglobin (Bld) [Mass/Vol] 12.8 g/dL Critically low 14.0-18.0 [facility] Comment on above: Performed By: #### C BC ####[facility] Dhajxkxzbh[address] [place], [place] [address]DrWesley Navarro IG # 0.05 10e3/ul Critically high 0.00-0.[address] [facility] Comment on above: Performed By: #### C BC ####[facility] Ykdvifpmlg[address] [place], [place] [address]DrWesley Navarro IG % 0.5 % Normal 0.0-0.5 [facility] Comment on above: Performed By: #### C BC ####[facility] Rjinhsomoi[address] [place], [place] [address]DrWesley Navarro LYMPH # 1.4 103/ul Normal 1.2-3.8 [facility] Comment on above: Performed By: #### C BC ####[facility] Ivnoykziqa61[address] [place], [place] [address]DrWesley Navarro Lymphocytes/100 WBC (Bld) 13.1 % Critically low 20.5-60.0 [facility] Comment on above: Performed By: #### C BC ####[facility] Gkjtedhrec[address] [place], [place] [address]DrWesley Navarro MANUAL DIFF REQ NO Normal [facility] Comment on above: Performed By: #### C BC ####[facility] Esiekytwzg[address] [place], [place] [address]DrWesley Navarro MCH (RBC) [Entitic mass] 29.8 pg Normal 25.9-34.0 [facility] Comment on above: Performed By: #### C BC ####[facility] [address] [place] [address]DrWesley Navarro MCHC (RBC) [Mass/Vol] 32.8 g/dL Normal 29.9-35.2 [facility] Comment on above: Performed By: #### C BC ####[facility] Egpnjqevqp[address] [place] [address]DrWesley Navarro MCV (RBC) [Entitic vol] 90.9 fL Normal 80.0-94.0 [facility] Comment on above: Performed By: #### C BC ####[facility] Hpqfgkdrtp[address] [place], [place] [address]DrWesley Navarro MONO # 0.8 103/ul Normal 0.3-0.8 [facility] Comment on above: Performed By: #### C BC ####[facility] Sjzaeplpfb[address] [place], [place] [address]DrWesley Navarro Monocytes/100 WBC (Bld) 7.5 % Normal 1.7-12.0 [facility] Comment on above: Performed By: #### C BC ####[facility] Rxyiuboifr[address] [place], [place] [address]DrWesley Navarro NEUT # 8.1 103/ul Critically high 1.4-6.5 [facility] Comment on above: Performed By: #### C BC ####[facility] S[address]ldficcps[address] [place], [place] [address]DrWesley Navarro Neutrophils/100 WBC (Bld) 74.7 % Normal 43.0-75.0 [facility] Comment on above: Performed By: #### C BC ####[facility] Puitowpmyb[address]24[address] [place], [place] [address]DrWesley Navarro Platelet mean volume (Bld) [Entitic vol] 10.0 fL Normal 9.5-13.5 [facility] Comment on above: Performed By: #### C BC ####[facility] Ztzlehisot[address] [place], [place] [address]Dr. Emelina Navarro PLT 242 103/ul Normal 150-450 [facility] Comment on above: Performed By: #### C BC ####[facility] [address] [place] [address]Dr. Emelina Navarro RBC 4.29 106/ul Critically low 4.70-6.10 [facility] Comment on above: Performed By: #### C BC ####[facility] [address]rosty[address] [place] [address]Dr. Emelina Navarro WBC 10.8 103/ul Normal 4.0-11.0 [facility] Comment on above: Performed By: #### C BC ####[facility] [address]neyvpp[address] [place] [address]Dr. Emelina Navarro PROF 14(COMP METB)on 023 Albumin [Mass/Vol] 2.7 g/dL Critically low 3.4-5.0 [facility] Comment on above: Performed By: #### B OBSERVATION NURSE, CMP ####[facility] Kcmynwsanp[address] [place], [place] [address]Dr. Emelina Navarro Albumin/Globulin [Mass ratio] 0.6 {ratio} Normal [facility] Comment on above: Performed By: #### B OBSERVATION NURSE, CMP ####[facility] [address]cll[address] [place] [address]Dr. Emelina Navarro ALP [Catalytic activity/Vol] 105 U/L Normal 46-116 [facility] Comment on above: Performed By: #### B OBSERVATION NURSE, CMP ####[facility] H[address]oykxws[address] [place] [address]Dr. Emelina Navarro ALT [Catalytic activity/Vol] 21 U/L Normal 16-63 [facility] Comment on above: Performed By: #### B OBSERVATION NURSE, CMP ####[facility] Otnfnkczyf[address] [place], [place] [address]Dr. Emelina Navarro Anion gap [Moles/Vol] 11.6 mmol/L Normal [facility] Comment on above: Performed By: #### B OBSERVATION NURSE, CMP ####[facility] Tiebdbsecg[address] [place], [place] [address]Dr. Emelina Navarro AST [Catalytic activity/Vol] 25 U/L Normal 15-37 [facility] Comment on above: Performed By: #### B OBSERVATION NURSE, CMP ####[facility] Ubindojsyr2187[address] [place], [place] [address]Dr. Emelina Nvaarro Bilirubin [Mass/Vol] 0.8 mg/dL Normal 0.2-1.0 [facility] Comment on above: Performed By: #### B OBSERVATION NURSE, CMP ####[facility] Rkrpyoqhem[address] [place], [place] [address]Dr. Emelina Navarro Calcium [Mass/Vol] 8.1 mg/dL Critically low 8.5-10.1 Th e [facility] Comment on above: Performed By: #### B OBSERVATION NURSE, CMP ####[facility] Ixpuyyiybt[address] [place], [place] [address]Dr. Emelina Navarro Chloride [Moles/Vol] 100 mmol/L Normal 98-107 [facility] Comment on above: Performed By: #### B OBSERVATION NURSE, CMP ####[facility] Bcbsegevgi[address] [place], [place] [address]Dr. Emelina Navarro CO2 [Moles/Vol] 29.2 mmol/L Normal 21.0-32.0 [facility] Comment on above: Performed By: #### B OBSERVATION NURSE, CMP ####[facility] Ixswqoljsr[address] [place], [place] [address]Dr. Emelina Navarro Creatinine [Mass/Vol] 1.66 mg/dL Critically high 0.70-1.30 [facility] Comment on above: Performed By: #### B OBSERVATION NURSE, CMP ####[facility] Getpbmfian5063[address] [place], [place] [address]Dr. Emelina Navarro EGFR-AF CITIZ[place] OF [place] 50 mL/min/1.73m2 Critically low >=60 [facility] Comment on above: Performed By: #### B OBSERVATION NURSE, CMP ####[facility] Pmckhjjxzc[address] [place], [place] [address]Dr. Emelina Navarro EGFR-NON AF CITIZEN OF [place] 41 mL/min/1.73m2 Critically low >=60 [facility] Comment on above: Performed By: #### B OBSERVATION NURSE, CMP ####[facility] Ime[address]wziwnv[address] [place] [address]Dr. Emelina Navarro Globulin (S) [Mass/Vol] 4.2 g/dL Normal [facility] Comment on above: Performed By: #### B OBSERVATION NURSE, CMP ####[facility] Hmsdjpbjbr[address] [place], [place] [address]Dr. Emelina Navarro Glucose [Mass/Vol] 126 mg/dL Critically high 74-106 [facility] Comment on above: Performed By: #### B OBSERVATION NURSE, CMP ####[facility] Vwesgsbuus0[address] [place], [place] [address]Dr. Emelina Navarro Potassium [Moles/Vol] 3.8 mmol/L Normal 3.5-5.1 [facility] Comment on above: Performed By: #### B OBSERVATION NURSE, CMP ####[facility] Vocfpmnewy[address] [place], [place] [address]Dr. Emelina Navarro Protein [Mass/Vol] 6.9 g/dL Normal 6.4-8.2 [facility] Comment on above: Performed By: #### B OBSERVATION NURSE, CMP ####[facility] Lozxkxjcyx4[address] [place], [place] [address]Dr. Emelina Navarro Sodium [Moles/Vol] 137 mmol/L Normal 136-145 [facility] Comment on above: Performed By: #### B OBSERVATION NURSE, CMP ####[facility] Ibazsnhtpl[address] [place], [place] [address]Dr. Emelina Navarro Urea nitrogen [Mass/Vol] 32.0 mg/dL Critically high 7.0-18.0 [facility] Comment on above: Performed By: #### B OBSERVATION NURSE, CMP ####[facility] Onbnnmhevc32[address] [place], [place] [address]Dr. Emelina Navarro Urea nitrogen/Creatinine [Mass ratio] 19.3 mg/mg Normal [facility] Comment on above: Performed By: #### B OBSERVATION NURSE, CMP ####[facility] Cuvkrjyuhl[address] [place], [place] [address]Dr. Emelina Navarro PROTIMEon 03-28-2023 INR Coag (PPP) [Relative time] 2.59 {INR} Normal [facility] Comment on above: Performed By: #### P T ####[facility] J[address]br[address] [place] [address]DrWesley Navarro INR GUIDELINES SEE BELOW Normal [facility] Comment on above: Result Comment: WENDY RED INR: 2.0 - 3.0 CONDITIONS NOT LISTED BELOW 2.5 - 3.5 FOR PROSTHETIC HEART VALVE REPLACEMENT 2.5 - 3.5 RECURRENT THROMBOSIS Performed By: #### P T ####[facility] Xyxzlmdrwu[address] [place], [place] [address]Dr. Emelina Navarro PT Coag (PPP) [Time] 26.0 s Critically high 9.0-11.6 [facility] Comment on above: Performed By: #### P T ####[facility] Darfgmbfpz[address] [place], [place] [address]DrWesley Navarro SED RATE [facility] 2022 SED RATE 62 mm/hr Critically high <=20 [facility] Comment on above: Performed By: #### S EDR ####[facility] Lrxbrvzzop[address] [place], [place] [address]Dr. Emelina Navarro BNPon 03-27-2023 Natriuretic peptide B (Bld) [Mass/Vol] 31181.0 pg/mL Critically high <=900.0 [facility] Comment on above: Performed By: #### B OBSERVATION NURSE ####[facility] Z[address]tkijhs[address] [place], [place] [address]DrWesley Navarro CARDIAC IMTIAZ 3-6on 3 CK [Catalytic activity/Vol] 59 U/L Normal 39-308 [facility] Comment on above: Performed By: #### C MREP ####[facility] Cdxkziqimi[address] [place], [place] [address]Dr. Emelina Navarro CK.MB [Mass/Vol] 1.98 ng/mL Normal <=3.60 [facility] Comment on above: Performed By: #### C MREP ####[facility] Flkkvzzfdw[address] [place], [place] [address]Dr. Emelina Navarro HSTROP 52.5 pg/mL Normal 4.0-76.1 [facility] Comment on above: Result Comment: CUT- OFF POINTS HAVE BEEN ESTABLISHED BASED ON THE FOURTH UNIVERSAL DEFINITIONS OF MYOCARDIALINFARCTION. THE UPPER REFERENCE LIMIT (URL) OF TROPONIN, DEFINED THE 99TH PERCENTILE OFcTnI DISTRIBUTION IN A REFERENCE POPULATION, HAS BEEN CONFIRMED THE DECISION THRESHOLDFOR [place] DIAGNOSIS. Performed By: #### C MREP ####[facility] [address] [place] [id number]. Emelina Navarro CK [Catalytic activity/Vol] 41 U/L Normal 39-308 [facility] Comment on above: Performed By: #### C MREP ####[facility] K[address]qfmgxr68[address] [place] [id number]. Emelina Navarro CK.MB [Mass/Vol] 1.26 ng/mL Normal <=3.60 [facility] Comment on above: Performed By: #### C MREP ####[facility] Ift[address]qog[address] [place] [address]Dr. Emelina Navarro HSTROP 49.5 pg/mL Normal 4.0-76.1 [facility] Comment on above: Result Comment: CUT- OFF POINTS HAVE BEEN ESTABLISHED BASED ON THE FOURTH UNIVERSAL DEFINITIONS OF MYOCARDIALINFARCTION. THE UPPER REFERENCE LIMIT (URL) OF TROPONIN, DEFINED THE 99TH PERCENTILE OFcTnI DISTRIBUTION IN A REFERENCE POPULATION, HAS BEEN CONFIRMED THE DECISION THRESHOLDFOR [place] DIAGNOSIS. Performed By: #### C MREP ####[facility] [address] [place] [phone]. Emelina Navarro CBC AUTO DIFFon 03-27-2023 BASO # 0.0 103/ul Normal 0.0-0.1 [facility] Comment on above: Performed By: #### C BC ####[facility] Zeimrilnyo24[address] [place] [phone] Navarro Basophils/100 WBC (Bld) 0.3 % Normal 0.2-2.0 [facility] Comment on above: Performed By: #### C BC ####[facility] Ssrab[address]wgw8979 [place] [phone] Navarro EO # 0.4 103/ul Normal 0.0-0.7 [facility] Comment on above: Performed By: #### C BC ####[facility] Df[address]hunyvm[address] [place] [address]Dr. Emelina Navarro Eosinophils/100 WBC (Bld) 3.3 % Normal 0.9-7.0 [facility] Comment on above: Performed By: #### C BC ####[facility] O[address]awsit[address] [place] [address]Dr. Emelina Navarro Erythrocyte distribution width (RBC) [Ratio] 17.9 % Critically high 11.0-15.0 [facility] Comment on above: Performed By: #### C BC ####[facility] Dycfvjhfym[address] [place], [place] [address]Dr. Emelina Navarro Hematocrit (Bld) [Volume fraction] 42.3 % Normal 42.0-54.0 [facility] Comment on above: Performed By: #### C BC ####[facility] Jvjnndoikp[address] [place], [place] [address]Dr. Emelina Navarro Hemoglobin (Bld) [Mass/Vol] 13.8 g/dL Critically low 14.0-18.0 [facility] Comment on above: Performed By: #### C BC ####[facility] Lidvnzlogk[address] [place], [place] [address]Dr. Emelina Navarro IG # 0.07 10e3/ul Critically high 0.00-0.[address] [facility] Comment on above: Performed By: #### C BC ####[facility] Ocnwvbykye[address] [place], [place] [address]Dr. Emelina Navarro IG % 0.5 % Normal 0.0-0.5 [facility] Comment on above: Performed By: #### C BC ####[facility] Rktfjixmrj[address] [place], [place] [address]DrWesley Emelina Navarro LYMPH # 2.3 103/ul Normal 1.2-3.8 [facility] Comment on above: Performed By: #### C BC ####[facility] Wexqbkxtpd[address] [place], [place] [address]Dr. Emelina Ramon Lymphocytes/100 WBC (Bld) 17.5 % Critically low 20.5-60.0 [facility] Comment on above: Performed By: #### C BC ####[facility] Ujmiendmkk[address] [place] [address]DrWesley Navarro MANUAL DIFF REQ NO Normal [facility] Comment on above: Performed By: #### C BC ####[facility] Wzxnbewscq33[address] [place] [address]Dr. Emelina Navarro MCH (RBC) [Entitic mass] 29.3 pg Normal 25.9-34.0 [facility] Comment on above: Performed By: #### C BC ####[facility] Ytvnowyrvq[address] [place], [place] [address]Dr. Emelina Navarro MCHC (RBC) [Mass/Vol] 32.6 g/dL Normal 29.9-35.2 [facility] Comment on above: Performed By: #### C BC ####[facility] Kuth[address]zztp[address] [place], [place] [address]DrWesley Navarro MCV (RBC) [Entitic vol] 89.8 fL Normal 80.0-94.0 [facility] Comment on above: Performed By: #### C BC ####[facility] Okybijfxuo[address] [place], [place] [address]DrWesley Navarro MONO # 1.0 103/ul Critically high 0.3-0.8 [facility] Comment on above: Performed By: #### C BC ####[facility] Ymbqevzfai[address] [place], [place] [address]DrWesley Navarro Monocytes/100 WBC (Bld) 7.8 % Normal 1.7-12.0 [facility] Comment on above: Performed By: #### C BC ####[facility] [address]guzuxd[address] [place], [place] [address]DrWesley Navarro NEUT # 9.3 103/ul Critically high 1.4-6.5 [facility] Comment on above: Performed By: #### C BC ####[facility] Z[address]odbju[address] [place], [place] [address]DrWesley Navarro Neutrophils/100 WBC (Bld) 70.6 % Normal 43.0-75.0 [facility] Comment on above: Performed By: #### C BC ####[facility] Fyiwrwdxhp[address] [place] [address]Dr. Emelina Navarro Platelet mean volume (Bld) [Entitic vol] 9.6 fL Normal 9.5-13.5 [facility] Comment on above: Performed By: #### C BC ####[facility] Fdbozxkqqz[address] [place] [address]Dr. Emelina Navarro PLT 248 103/ul Normal 150-450 [facility] Comment on above: Performed By: #### C BC ####[facility] Wrwedhdoad[address] [place] [address]Dr. Emelina Navarro RBC 4.71 106/ul Normal 4.70-6.10 [facility] Comment on above: Performed By: #### C BC ####[facility] Aslw[address]vkit[address] [place] [address]Dr. Emelina Navarro WBC 13.2 103/ul Critically high 4.0-11.0 [facility] Comment on above: Performed By: #### C BC ####[facility] Ecoowxrvom[address] [place] [address]Dr. Emelina Navarro DIGOXINon 03-27-2023 DIG 1.1 ng/mL Normal 0.9-2.0 [facility] Comment on above: Performed By: #### D IG ####[facility] Gpmmzrutgb[address] [place], [place] [address]Dr. Emelina Ramon LACTATE/LACTIC ACIDon 2022 Lactate [Moles/Vol] 0.8 mmol/L Normal 0.4-2.[address] [facility] Comment on above: Performed By: #### L ACT ####[facility] Oxmseofilc[address] [place], [place] [address]Dr. Emelina Navarro LIPID PROFILEon 03-27-2023 CHOL-HDL RATIO NORM SEE BELOW Normal [facility] Comment on above: Result Comment: 3.3 - 4.4 LOW RISK 4.4 - 7.1 AVERAGE RISK 7.1 - 11.0 MODERATE RISK >11.0 HIGH RISK Performed By: #### L IPID, TSH ####[facility] Mjuqmwgmad[address] [place] [phone]. Emelina Navarro Cholesterol [Mass/Vol] 86 mg/dL Normal <=200 Th [facility] Comment on above: Performed By: #### L IPID, TSH ####[facility] Vqwcebobbw[address] [place] [phone]. Emelina Navarro Cholesterol in HDL [Mass/Vol] 29 mg/dL Critically low 40-60 [facility] Comment on above: Performed By: #### L IPID, TSH ####[facility] Dlyinbzzvg1185 [place] [phone]. Emelina Navarro Cholesterol in LDL [Mass/Vol] 37.8 mg/dL Normal [facility] Comment on above: Performed By: #### L IPID, TSH ####[facility] Luojysrkvy[address] [place], [place] [address]Dr. Emelina Navarro Cholesterol.total/Coco sterol in HDL [Mass ratio] 3.0 {ratio} Normal [facility] Comment on above: Performed By: #### L IPID, TSH ####[facility] V[address]soqgdaa[address] [place] [phone]. Emelina Navarro HDL NORMAL > or = 60 mg/dl - LO W CARDIOVASCULAR RISK <40 mg/dl - HIGH CARDIOVASCULAR RISK Normal [facility] Comment on above: Performed By: #### L IPID, TSH ####[facility] [address] [place], [place] [id number]. Emelina Navarro LDL CALC NORMAL SEE BELOW Normal [facility] Comment on above: Result Comment: <100 mg/dl OPTIMAL 100 - 129 mg/dl NEAR OR ABOVE OPTIMAL 130 - 159 mg/dl BORDERLINE HIGH 160 - 189 mg/dl HIGH >190 mg/dl VERY HIGH Performed By: #### L IPID, TSH ####[facility] Wrhlsfiyws[address] [place] [phone]. Emelina Navarro Triglyceride [Mass/Vol] 96 mg/dL Normal <=150 T [facility] Comment on above: Performed By: #### L IPID, TSH ####[facility] [facility] [address]esfcqkkr[address] [place] [id number]. Emelina Navarro VLDL CALC 19.2 mg/dL Normal [facility] Comment on above: Performed By: #### L IPID, TSH ####[facility] Bsycpxaxdm15[address] [place] [id number]. Emelina Navarro POINT OF CARE GLUCOSEon Glucose [Mass/Vol] 175 mg/dL Critically high 74-106 [facility] Comment on above: Performed By: #### P OCGLUC ####[facility] [address]ks[address]jbvks[address] [place] [address]Dr. Emelina Navarro Glucose [Mass/Vol] 196 mg/dL Critically high 74-106 [facility] Comment on above: Performed By: #### P OCGLUC ####[facility] Bifjvnerfq[address] [place] [address]Dr. Emelina Navarro PROF 14(COMP METB)on 023 Albumin [Mass/Vol] 2.9 g/dL Critically low 3.4-5.0 Th [facility] Comment on above: Performed By: #### C MP ####[facility] [address] [place], [place] [address]Dr. Emelina Navarro Albumin/Globulin [Mass ratio] 0.6 {ratio} Normal [facility] Comment on above: Performed By: #### C MP ####[facility] Yhzgsdhajd[address] [place] [address]Dr. Emelina Navarro ALP [Catalytic activity/Vol] 112 U/L Normal 46-116 [facility] Comment on above: Performed By: #### C MP ####[facility] Apepmenyij[address] [place] [address]Dr. Emelina Navarro ALT [Catalytic activity/Vol] 23 U/L Normal 16-63 [facility] Comment on above: Performed By: #### C MP ####[facility] Fxmhuhopca[address] [place] [address]Dr. Emelina Navarro Anion gap [Moles/Vol] 9.5 mmol/L Normal [facility] Comment on above: Performed By: #### C MP ####[facility] Glapgriytm3896 [place] [address]Dr. Emelina Navarro AST [Catalytic activity/Vol] 30 U/L Normal 15-37 [facility] Comment on above: Performed By: #### C MP ####[facility] Qihwkbltfi1811 [place] [phone]. Emelina Navarro Bilirubin [Mass/Vol] 0.8 mg/dL Normal 0.2-1.0 [facility] Comment on above: Performed By: #### C MP ####[facility] Edveoumfoo[address] [place], [place] [address]Dr. Emelina Navarro Calcium [Mass/Vol] 8.2 mg/dL Critically low 8.5-10.1 Th e [facility] Comment on above: Performed By: #### C MP ####[facility] [address]jvq[address]utlx[address] [place], [place] [address]Dr. mEelina Navarro Chloride [Moles/Vol] 100 mmol/L Normal 98-107 [facility] Comment on above: Performed By: #### C MP ####[facility] [address] [place], [place] [address]Dr. Emelina Navarro CO2 [Moles/Vol] 32.9 mmol/L Critically high 21.0-32.0 [facility] Comment on above: Performed By: #### C MP ####[facility] T[address] [place], [place] [address]Dr. Emelina Navarro Creatinine [Mass/Vol] 1.60 mg/dL Critically high 0.70-1.30 [facility] Comment on above: Performed By: #### C MP ####[facility] [address]hd[address]unj[address] [place], [place] [address]Dr. Emelina Navarro EGFR-AF [place]IZ[place] 52 mL/min/1.73m2 Critically low >=60 [facility] Comment on above: Performed By: #### C MP ####[facility] Vymq[address] [place], [place] [address]Dr. Emelina Ramon EGFR-NON AF CITIZEN OF [place] 43 mL/min/1.73m2 Critically low >=60 [facility] Comment on above: Performed By: #### C MP ####[facility] Vsgntpaqhw[address] [place] [address]Dr. Emelina Navarro Globulin (S) [Mass/Vol] 4.6 g/dL Normal [facility] Comment on above: Performed By: #### C MP ####[facility] Lxnmapzlfg0104 [place] [address]Dr. Emelina Navarro Glucose [Mass/Vol] 76 mg/dL Normal 74-106 [facility] Comment on above: Performed By: #### C MP ####[facility] Lcpadwiovn3272 [place] [address]Dr. Emelina Navarro Potassium [Moles/Vol] 3.4 mmol/L Critically low 3.5-5.1 [facility] Comment on above: Performed By: #### C MP ####[facility] Ekripsords[address] [place], [place] [address]Dr. Emelina Navarro Protein [Mass/Vol] 7.5 g/dL Normal 6.4-8.2 [facility] Comment on above: Performed By: #### C MP ####[facility] [address] [place], [place] [address]Dr. Emelina Navarro Sodium [Moles/Vol] 139 mmol/L Normal 136-145 [facility] Comment on above: Performed By: #### C MP ####[facility] [address] [place], [place] [address]Dr. Emelina Navarro Urea nitrogen [Mass/Vol] 30.0 mg/dL Critically high 7.0-18.0 [facility] Comment on above: Performed By: #### C MP ####[facility] Kvmvsypqtv57[address] [place] [address]Dr. Emelina Navarro Urea nitrogen/Creatinine [Mass ratio] 18.8 mg/mg Normal [facility] Comment on above: Performed By: #### C MP ####[facility] Ptimocutzg[address] [place] [address]Dr. Emelina Ramon PROTIMEon 03-27-2023 INR Coag (PPP) [Relative time] 2.58 {INR} Normal [facility] Comment on above: Performed By: #### P T ####[facility] Svokwjivyc[address] [place] [address]Dr. Emelina Navarro INR GUIDELINES SEE BELOW Normal [facility] Comment on above: Result Comment: WENDY RED INR: 2.0 - 3.0 CONDITIONS NOT LISTED BELOW 2.5 - 3.5 FOR PROSTHETIC HEART VALVE REPLACEMENT 2.5 - 3.5 RECURRENT THROMBOSIS Performed By: #### P T ####[facility] [address] [place], [place] [address]Dr. Emelina Navarro PT Coag (PPP) [Time] 25.9 s Critically high 9.0-11.6 [facility] Comment on above: Performed By: #### P T ####[facility] [address]ogpuxkh[address] [place], [place] [address]Dr. Emelina Navarro T4on 03-27-2023 T4 [Mass/Vol] 6.50 ug/dL Normal 4.50-12.10 [facility] Comment on above: Performed By: #### T 4 ####[facility] [address] [place], [place] [address]Dr. Emelina Navarro TSHon 03-27-2023 TSH 5.619 uIU/mL Critically high 0.358-3.74 0 [facility] Comment on above: Performed By: #### L IPID, TSH ####[facility] Hilujzvjit[address] [place], [place] [address]DrWesley Navarro US FERNY DOP LEG RTon 03-27-20 23 US FERNY DOP LEG RT Normal [facility] XR CHEST 1 Von 03-27-2023 XR CHEST 1 V Normal [facility] XR FOOT RT MIN 3 VIEWSon XR FOOT RT MIN 3 VIEWS Normal Th e [facility] BNPon 03-26-2023 Natriuretic peptide B (Bld) [Mass/Vol] 10912.0 pg/mL Critically high <=900.0 [facility] Comment on above: Performed By: #### B MP, CRP, CMADM, BNP ####[facility] Uribwr[address]qn[address] [place], [place] [address]Dr. Emelina Navarro CARDIAC IMTIAZ ADMITon 023 CK [Catalytic activity/Vol] 48 U/L Normal 39-308 [facility] Comment on above: Performed By: #### B MP, CRP, CMADM, BNP ####[facility] Sqzrchokvn4204 [place] [address]Dr. Emelina Navarro CK.MB [Mass/Vol] 1.48 ng/mL Normal <=3.60 [facility] Comment on above: Performed By: #### B MP, CRP, CMADM, BNP ####[facility] Igtefwnqfg[address] [place] [address]Dr. Emelina Navarro HSTROP 49.9 pg/mL Normal 4.0-76.1 [facility] Comment on above: Result Comment: CUT- OFF POINTS HAVE BEEN ESTABLISHED BASED ON THE FOURTH UNIVERSAL DEFINITIONS OF MYOCARDIALINFARCTION. THE UPPER REFERENCE LIMIT (URL) OF TROPONIN, DEFINED THE 99TH PERCENTILE OFcTnI DISTRIBUTION IN A REFERENCE POPULATION, HAS BEEN CONFIRMED THE DECISION THRESHOLDFOR MO DIAGNOSIS. Performed By: #### B MP, CRP, CMADM, BNP ####[facility] Dgwejbvyhw[address] [place] [address]Dr. Emelina Ramon URBANO 117 ng/mL Critically high 16-96 [facility] Comment on above: Performed By: #### B MP, CRP, CMADM, BNP ####[facility] Ybdedaubek[address] [place] [address]Dr. Emelina Ramon CBC AUTO DIFFon 03-26-2023 BASO # 0.1 103/ul Normal 0.0-0.1 [facility] Comment on above: Performed By: #### C BC ####[facility] Yxjzxyuqcm[address] [place] [address]Dr. Awildanitza Navarro Basophils/100 WBC (Bld) 0.4 % Normal 0.2-2.0 [facility] Comment on above: Performed By: #### C BC ####[facility] Nivltxgzzh[address] [place] [address]Dr. Emelina Navarro EO # 0.5 103/ul Normal 0.0-0.7 [facility] Comment on above: Performed By: #### C BC ####[facility] Vullgonmih[address] [place] [phone]. Emelina Navarro Eosinophils/100 WBC (Bld) 3.5 % Normal 0.9-7.0 [facility] Comment on above: Performed By: #### C BC ####[facility] Etfcxmirlf2309 [place] [phone]. Emelina Navarro Erythrocyte distribution width (RBC) [Ratio] 17.7 % Critically high 11.0-15.0 [facility] Comment on above: Performed By: #### C BC ####[facility] Ewqwdubiup[address] [place], [place] [address]Dr. Emelina Navarro Hematocrit (Bld) [Volume fraction] 42.6 % Normal 42.0-54.0 [facility] Comment on above: Performed By: #### C BC ####[facility] Azcvwgzv[address] [place], [place] [address]Dr. Emelina Navarro Hemoglobin (Bld) [Mass/Vol] 14.2 g/dL Normal 14.0-18.0 [facility] Comment on above: Performed By: #### C BC ####[facility] [address]ft[address] [place], [place] [address]Dr. Emelina Navarro IG # 0.09 10e3/ul Critically high 0.00-0.[address] [facility] Comment on above: Performed By: #### C BC ####[facility] Jfpdgiiwdf[address] [place], [place] [address]Dr. Emelina Navarro IG % 0.7 % Critically high 0.0-0.5 [facility] Comment on above: Performed By: #### C BC ####[facility] L[address] [place], [place] [address]Dr. Emelina Navarro LYMPH # 2.3 103/ul Normal 1.2-3.8 [facility] Comment on above: Performed By: #### C BC ####[facility] Bkcuk[address]efz[address] [place], [place] [address]Dr. Emelina Navarro Lymphocytes/100 WBC (Bld) 17.3 % Critically low 20.5-60.0 [facility] Comment on above: Performed By: #### C BC ####[facility] Nqewtqdpii[address]150 [place] [phone]. Emelina Navarro MANUAL DIFF REQ NO Normal [facility] Comment on above: Performed By: #### C BC ####[facility] Wytobaurui1319 [place] [phone]. Emelina Navarro MCH (RBC) [Entitic mass] 29.6 pg Normal 25.9-34.0 [facility] Comment on above: Performed By: #### C BC ####[facility] Lxzjquwema5794 [place] [phone]. Emelina Navarro MCHC (RBC) [Mass/Vol] 33.3 g/dL Normal 29.9-35.2 [facility] Comment on above: Performed By: #### C BC ####[facility] Exutntuvbu[address] [place] [address]Dr. Emelina Navarro MCV (RBC) [Entitic vol] 88.9 fL Normal 80.0-94.0 [facility] Comment on above: Performed By: #### C BC ####[facility] [address]zbbp[address] [place], [place] [address]Dr. Emelina Navarro MONO # 1.3 103/ul Critically high 0.3-0.8 [facility] Comment on above: Performed By: #### C BC ####[facility] Fmwolhxfyx[address] [place], [place] [address]Dr. Emelina Navarro Monocytes/100 WBC (Bld) 9.7 % Normal 1.7-12.0 [facility] Comment on above: Performed By: #### C BC ####[facility] Naufiwdfcb[address]91 [place] [phone]. Emelina Navarro NEUT # 9.2 103/ul Critically high 1.4-6.5 [facility] Comment on above: Performed By: #### C BC ####[facility] Jxexampetq7614 [place] [phone]. Emelina Navarro Neutrophils/100 WBC (Bld) 68.4 % Normal 43.0-75.0 [facility] Comment on above: Performed By: #### C BC ####[facility] Gysmoyahhw[address] [place] [address]Dr. Emelina Navarro Platelet mean volume (Bld) [Entitic vol] 9.6 fL Normal 9.5-13.5 [facility] Comment on above: Performed By: #### C BC ####[facility] Itxvgvimfq33[address] [place] [address]Dr. Emelina Navarro PLT 271 103/ul Normal 150-450 [facility] Comment on above: Performed By: #### C BC ####[facility] Sacdotqlak[address]01 [place] [phone]. Emelina Navarro RBC 4.79 106/ul Normal 4.70-6.10 [facility] Comment on above: Performed By: #### C BC ####[facility] Mjkysekaow[address] [place] [address]Dr. Emelina Ramon WBC 13.4 103/ul Critically high 4.0-11.0 [facility] Comment on above: Performed By: #### C BC ####[facility] Calbjhhvhl[address]199 [place] [phone]. Emelina Ramon CRPon 03-26-2023 CRP 4.6 mg/dL Critically high <=1.0 [facility] Comment on above: Performed By: #### B MP, CRP, CMADM, BNP ####[facility] Gmgjlgnbxm8[address] [place] [address]Dr. Emelina Navarro LACTATE/LACTIC ACIDon 2022 Lactate [Moles/Vol] 1.6 mmol/L Normal 0.4-2.[address] [facility] Comment on above: Performed By: #### L ACT ####[facility] [address] [place], [place] [address]Dr. Emelina Navarro PROF CHEM 8 (BAS METB)on Anion gap [Moles/Vol] 9.6 mmol/L Normal [facility] Comment on above: Performed By: #### B MP, CRP, CMADM, BNP ####[facility] Tpjmjmegnx[address] [place] [address]Dr. Emelina Navarro Calcium [Mass/Vol] 8.4 mg/dL Critically low 8.5-10.1 Th [facility] Comment on above: Performed By: #### B MP, CRP, CMADM, BNP ####[facility] Boorfycrkq4[address] [place] [address]Dr. Emelina Navarro Chloride [Moles/Vol] 102 mmol/L Normal 98-107 [facility] Comment on above: Performed By: #### B MP, CRP, CMADM, BNP ####[facility] Mzddamciwk[address] [place] [address]Dr. Emelina Navarro CO2 [Moles/Vol] 30.9 mmol/L Normal 21.0-32.0 [facility] Comment on above: Performed By: #### B MP, CRP, CMADM, BNP ####[facility] [address]bt[address] [place], [place] [address]Dr. Emelina Navarro Creatinine [Mass/Vol] 1.73 mg/dL Critically high 0.70-1.30 [facility] Comment on above: Performed By: #### B MP, CRP, CMADM, BNP ####[facility] W[address] [place], [place] [address]Dr. Emelina Navarro EGFR-AF [place]IZ[place] 48 mL/min/1.73m2 Critically low >=60 [facility] Comment on above: Performed By: #### B MP, CRP, CMADM, BNP ####[facility] [address]embpf[address] [place], [place] [address]Dr. Emelina Navarro EGFR-NON AF [place]IZ[place] 39 mL/min/1.73m2 Critically low >=60 [facility] Comment on above: Performed By: #### B MP, CRP, CMADM, BNP ####[facility] [address]zrx[address] [place], [place] [address]Dr. Emelina Navarro Glucose [Mass/Vol] 73 mg/dL Critically low 74-106 [facility] Comment on above: Performed By: #### B MP, CRP, CMADM, BNP ####[facility] K[address]kpocrx[address] [place], [place] [address]Dr. Emelina Navarro Potassium [Moles/Vol] 3.5 mmol/L Normal 3.5-5.1 [facility] Comment on above: Performed By: #### B MP, CRP, CMADM, BNP ####[facility] Brpjvcvqiw[address] [place] [phone]. Emelina Navarro Sodium [Moles/Vol] 139 mmol/L Normal 136-145 [facility] Comment on above: Performed By: #### B MP, CRP, CMADM, BNP ####[facility] Terojowlku[address] [place] [phone]. Awildanitza Navarro Urea nitrogen [Mass/Vol] 29.0 mg/dL Critically high 7.0-18.0 [facility] Comment on above: Performed By: #### B MP, CRP, CMADM, BNP ####[facility] Zgzsgfswcf[address]372 [place] [address]Dr. Emelina Navarro Urea nitrogen/Creatinine [Mass ratio] 16.8 mg/mg Normal [facility] Comment on above: Performed By: #### B MP, CRP, CMADM, BNP ####[facility] Wmvtyalcvl2001 [place] [phone]. Emelina Ramon [facility] 20[facility] SED RATE 60 mm/hr Critically high <=20 [facility] Comment on above: Performed By: #### S EDR ####[facility] Rkcrmrldav[address] [place] [address]Dr. Emelina Ramon Office Visiton 03-21-2023 Follow-up visit [id number] Adwoa Porter 1955 M Date Provider Department Center 03/21/2023 [id number] BELCHER [facility] Family History Problem Relation Age of Onset Diabetes Mother Hypertension Mother Coronary artery disease Mother Family Status - Relation Status Age at Mother Level of Service:61915 [place] OFFICE/OUTPATIENT ESTABLISHED MOD MDM 30-39 MIN Normal [facility] Basic Metabolic Panelon 04-0 Anion gap [Moles/Vol] 13.7 mmol/L Normal 6.0-15.0 [facility] Comment on above: Order Comment: pt is non fasting Performed By: #### M G, CMP, PT, PTT, CBC #### [facility] [address] [place] [address] [place] Calcium [Mass/Vol] 9.2 mg/dL Normal 8.6-10.3 [facility] Comment on above: Order Comment: pt is non fasting Result Comment: PERF ORMED BY: [place] [address] PATHOLOGIST [employer] RAFA BYRNE M.D. Performed By: #### M G, CMP, PT, PTT, CBC #### [facility] [address] [place] [address] [place] Chloride [Moles/Vol] 94 mmol/L Low 98-107 [facility] Comment on above: Order Comment: pt is non fasting Performed By: #### M G, CMP, PT, PTT, CBC #### [facility] [address] [place] [address] [place] CO2 [Moles/Vol] 31.1 mmol/L High 21.0-31.0 [facility] Comment on above: Order Comment: pt is non fasting Performed By: #### M G, CMP, PT, PTT, CBC #### [facility] [address] [place] [address] [place] Creatinine [Mass/Vol] 1.57 mg/dL High 0.70-1.30 [facility] Comment on above: Order Comment: pt is non fasting Performed By: #### M G, CMP, PT, PTT, CBC #### [facility] [address] [place] [address] [place] GFR/1.73 sq M.predicted MDRD (S/P/Bld) [Vol rate/Area] 47.712 mL/min/{1.73_m2} Normal [facility] Comment on above: Order Comment: pt is non fasting Performed By: #### M G, CMP, PT, PTT, CBC #### [facility] [address] [place] [address] [place] Glucose [Mass/Vol] 67 mg/dL Low 70-100 [facility] Comment on above: Order Comment: pt is non fasting Result Comment: [place] Glucose Reference Range is dependent on time and content of last meal. Glucose of more than 200 mg/dL in a nonstressed, ambulatory subject supports the diagnosis of Diabetes Mellitus. ADA recommended reference range Performed By: #### M G, CMP, PT, PTT, CBC #### [facility] [address] Potassium [Moles/Vol] 3.8 mmol/L Normal 3.5-5.1 [facility] Comment on above: Order Comment: pt is non fasting Performed By: #### M G, CMP, PT, PTT, CBC #### [facility] [address] Sodium [Moles/Vol] 135 mmol/L Low 136-145 [facility] Comment on above: Order Comment: pt is non fasting Performed By: #### M G, CMP, PT, PTT, CBC #### [facility] [address] Urea nitrogen [Mass/Vol] 25 mg/dL Normal 7-25 [facility] Comment on above: Order Comment: pt is non fasting Performed By: #### M G, CMP, PT, PTT, CBC #### [facility] [address] Calcium [Mass/volume] in Ser um or PlasmaOrdered By: Yakov To on 02-21-2023 Calcium [Mass/Vol] 9.2 mg/dL 8.6-10.3 [facility] Carbon dioxide, total [Moles /volume] in Serum or PlasmaOrdered By: Yakov To on 02-21-2023 CO2 [Moles/Vol] 31.1 mmol/L 21.0-31.0 [facility] Chloride [Moles/volume] in S mary or PlasmaOrdered By: Yakov To on 02-21-2023 Chloride [Moles/Vol] 94 mmol/L 98-107 [facility] Creatinine [Mass/volume] in Serum or PlasmaOrdered By: Yakov To on 02-21-2023 Creatinine [Mass/Vol] 1.57 mg/dL 0.70-1.30 [facility] Glucose [Mass/volume] in Ser um or PlasmaOrdered By: Yakov To on 02-21-2023 Glucose [Mass/Vol] 67 mg/dL 70-100 [facility] Comment on above: ADA recommended refe rence rangeRandom Glucose Reference Range is dependent on time and content of last meal. Glucose of more than 200 mg/dL in a nonstressed, ambulatory subject supports the diagnosis of Diabetes Mellitus. No Panel InformationOrdered By: Yakov oT on 02-21-2023 Estimated GFR (CKD-EPI) 47.712 mL/Min [facility] Creatinine Clearance (Chem N/A [facility] Potassium [Moles/volume] in Serum or PlasmaOrdered By: Yakov To on 02-21-2023 Potassium [Moles/Vol] 3.8 mmol/L 3.5-5.1 [facility] Serum or plasma anion gap de terminationOrdered By: Yakov To on 02-21-2023 Anion gap [Moles/Vol] 13.7 mmol/L 6.0-15.0 [facility] Sodium [Moles/volume] in Ser um or PlasmaOrdered By: Yakov To on 02-21-2023 Sodium [Moles/Vol] 135 mmol/L 136-145 [facility] Urea nitrogen [Mass/volume] in Serum or PlasmaOrdered By: Yakov To on 02-21-2023 Urea nitrogen [Mass/Vol] 25 mg/dL 7-25 [facility] Calcium [Mass/volume] in Ser um or PlasmaOrdered By: Yakov To on 02-14-2023 Calcium [Mass/Vol] 9.1 mg/dL 8.6-10.3 [facility] Carbon dioxide, total [Moles /volume] in Serum or PlasmaOrdered By: Yakov To on 02-14-2023 CO2 [Moles/Vol] 30.7 mmol/L 21.0-31.0 [facility] Chloride [Moles/volume] in S mary or PlasmaOrdered By: Yakov To on 02-14-2023 Chloride [Moles/Vol] 95 mmol/L 98-107 [facility] Creatinine [Mass/volume] in Serum or PlasmaOrdered By: Yakov To on 02-14-2023 Creatinine [Mass/Vol] 1.65 mg/dL 0.70-1.30 [facility] Glucose Glucometer (BldC) [M ass/Vol]Ordered By: Yakov To on 02-14-2023 Glucose [Mass/Vol] 197 mg/dL [facility] Comment on above: Random Glucose Refer ence Range is dependent on time and content of last meal. Glucose of more than 200 mg/dL in a nonstressed, ambulatory subject supports the diagnosis of Diabetes Mellitus. Glucose [Mass/volume] in Ser um or PlasmaOrdered By: Yakov To on 02-14-2023 Glucose [Mass/Vol] 193 mg/dL 70-100 [facility] Comment on above: Delta: 400 on [...] from glycated hemoglobin (Bld) [Mass/Vol] 252 mg/dL [facility] Hemoglobin A1c percentageOrd ered By: Yakov To on 02-14-2023 HbA1c (Bld) [Mass fraction] 10.4 % 4.3-5.6 [facility] Comment on above: Increased risk for d iabetes: 5.7 - 6.4diabetes: >6.4glycemic control for adults with diabetes: <7.0 Laboratory - Chemistry and C hemistry - challengeOrdered By: Yakov To on 02-14-2023 GFR/1.73 sq M.predicted MDRD (S/P/Bld) [Vol rate/Area] 44.950 mL/min/{1.73_m2} [facility] Laboratory - CoagulationOrde red By: Yakov To on 02-14-2023 PT Coag (PPP) [Time] 25.6 s 9.0-12.9 [facility] Magnesium [Mass/volume] in S mary or PlasmaOrdered By: Yakov To on 02-14-2023 Magnesium [Mass/Vol] 2.4 mg/dL 1.9-2.7 [facility] No Panel InformationOrdered By: Yakov To on 02-14-2023 Pharmacy Creatinine Clearance (Chem 49.22 [facility] Platelet poor plasma interna tional normalized ratio (INR) by coagulation assay (relatOrdered By: Yakov To on 02-14-2023 INR Coag (PPP) [Relative time] 2.2 {INR} [facility] Comment on above: INR Therapeutic Rang e A) Pre- and Peroperative OAT started two weeks before surgery. NOT HIP SURGERY: 1.5 - 2.5 HIP SURGERY: 2 - 3B) Primary and secondary prevention of venous THROMBOSIS: 2 - 3C) Active venous thrombosis, pulmonary embolismand prevention of recurrent venous thrombosis: 2 - 3D) Prevention of arterial thromboembolismincluding patients with mechanical heart valves: 3 - 4.5 Potassium [Moles/volume] in Serum or PlasmaOrdered By: Yakov To on 02-14-2023 Potassium [Moles/Vol] 3.7 mmol/L 3.5-5.1 [facility] Serum or plasma anion gap de terminationOrdered By: Yakov To on 02-14-2023 Anion gap [Moles/Vol] 13.4 mmol/L 6.0-15.0 [facility] Sodium [Moles/volume] in Ser um or PlasmaOrdered By: Yakov To on 02-14-2023 Sodium [Moles/Vol] 136 mmol/L 136-145 [facility] Comment on above: Delta: 129 on -1648 Urea nitrogen [Mass/volume] in Serum or PlasmaOrdered By: Yakov To on 02-14-2023 Urea nitrogen [Mass/Vol] 43 mg/dL 7-25 [facility] Activated partial thrombopla stin time (aPTT) in platelet poor plasma by coagulation aOrdered By: Angela Aden on 02-13-2023 aPTT Coag (PPP) [Time] 38.3 s 25.1-36.5 [facility] Alanine aminotransferase [En zymatic activity/volume] in Serum or PlasmaOrdered By: Angela Aden on 02-13-2023 ALT [Catalytic activity/Vol] 21 U/L 7-52 [facility] Albumin [Mass/volume] in Ser um or Plasma by Bromocresol green (BCG) dye binding methoOrdered By: Angela Aden on 02-13-2023 Albumin BCG dye [Mass/Vol] 4.3 g/dL 3.5-5.7 [facility] Alkaline phosphatase [Enzyma tic activity/volume] in Serum or PlasmaOrdered By: Angela Aden on 02-13-2023 ALP [Catalytic activity/Vol] 98 U/L 34-104 [facility] Aspartate aminotransferase [ Enzymatic activity/volume] in Serum or PlasmaOrdered By: Angela Aden on 02-13-2023 AST [Catalytic activity/Vol] 32 U/L 13-39 [facility] Basophils Auto (Bld) [#/Vol] Ordered By: Angela Aden on 02-13-2023 Basophils (Bld) [#/Vol] 0.1 10*3/uL 0.0-0.2 [facility] Basophils/100 WBC Auto (Bld) Ordered By: Angela Aden on 02-13-2023 Basophils/100 WBC (Bld) 0.6 % . [facility] Beta hydroxybutyrate [Moles/ volume] in Serum or PlasmaOrdered By: Angela Aden on 02-13-2023 Beta hydroxybutyrate [Moles/Vol] 0.10 mmol/L 0.02-0.27 [facility] Bilirubin Test strip Ql (U)O rdered By: Angela Aden on 02-13-2023 Bilirubin Ql (U) Negative Negative [facility] Bilirubin.total [Mass/volume ] in Serum or PlasmaOrdered By: Angela Aden on 02-13-2023 Bilirubin [Mass/Vol] 1.3 mg/dL 0.3-1.0 [facility] Comment on above: Samples from patient s who have taken Naproxen have shown spurious elevation in Total Bilirubin levels. A metabolite of Naproxen, O-desmethylnaproxen, has been shown to interfere with the Jesi-Ananya method for measuring Total Bilirubin. Calcium [Mass/volume] in Ser um or PlasmaOrdered By: Angela Aden on 02-13-2023 Calcium [Mass/Vol] 9.3 mg/dL 8.6-10.3 [facility] Carbon dioxide, total [Moles /volume] in Serum or PlasmaOrdered By: Angela Aden on 02-13-2023 CO2 [Moles/Vol] 31.6 mmol/L 21.0-31.0 [facility] Chloride [Moles/volume] in S mary or PlasmaOrdered By: Angela Aedn on 02-13-2023 Chloride [Moles/Vol] 85 mmol/L 98-107 [facility] Color Auto (U)Ordered By: Miguel Aden on 02-13-2023 Color (U) Yellow Yellow [facility] Creatinine [Mass/volume] in Serum or PlasmaOrdered By: Angela Aden on 02-13-2023 Creatinine [Mass/Vol] 2.06 mg/dL 0.70-1.30 [facility] Eosinophils Auto (Bld) [#/Vo l]Ordered By: Angela Aden on 02-13-2023 Eosinophils (Bld) [#/Vol] 0.4 10*3/uL 0.0-0.45 [facility] Eosinophils/100 WBC Auto (Bl d)Ordered By: Angela Aden on 02-13-2023 Eosinophils/100 WBC (Bld) 2.9 % . [facility] Erythrocyte distribution wid th Auto (RBC) [Ratio]Ordered By: Angela Aden on 02-13-2023 Erythrocyte distribution width (RBC) [Ratio] 17.9 % 12.0-14.8 [facility] Globulin Calc (S) [Mass/Vol] Ordered By: Angela Aden on 02-13-2023 Globulin (S) [Mass/Vol] 3.6 g/dL [facility] Glucose Glucometer (BldC) [M ass/Vol]Ordered By: Yakov To on 02-13-2023 Glucose [Mass/Vol] 216 mg/dL [facility] Comment on above: Random Glucose Refer ence Range is dependent on time and content of last meal. Glucose of more than 200 mg/dL in a nonstressed, ambulatory subject supports the diagnosis of Diabetes Mellitus. Glucose [Mass/volume] in Ser um or PlasmaOrdered By: Angela Aden on 02-13-2023 Glucose [Mass/Vol] 400 mg/dL 70-100 [facility] Comment on above: ADA recommended refe rence rangeRandom Glucose Reference Range is dependent on time and content of last meal. Glucose of more than 200 mg/dL in a nonstressed, ambulatory subject supports the diagnosis of Diabetes Mellitus. Hematocrit Auto (Bld) [Volum e fraction]Ordered By: Angela Aden on 02-13-2023 Hematocrit (Bld) [Volume fraction] 48.8 % 38.8-50.0 [facility] Hemoglobin [Mass/volume] in BloodOrdered By: Angela Aden on 02-13-2023 Hemoglobin (Bld) [Mass/Vol] 16.6 g/dL 13.0-17.0 [facility] Ketones Auto test strip (U) [Mass/Vol]Ordered By: Angela Aden on 02-13-2023 Ketones (U) [Mass/Vol] Negative Negative [facility] Laboratory - Chemistry and C hemistry - challengeOrdered By: Angela Aden on 02-13-2023 CO2 [Moles/Vol] 32.7 mmol/L 23.0-27.0 [facility] HCO3 (Bld) [Moles/Vol] 31.2 mmol/L 23.0-29.0 [facility] GFR/1.73 sq M.predicted MDRD (S/P/Bld) [Vol rate/Area] 34.441 mL/min/{1.73_m2} [facility] Laboratory - CoagulationOrde red By: Angela Aden on 02-13-2023 PT Coag (PPP) [Time] 26.1 s 9.0-12.9 [facility] Leukocytes [#/volume] correc morris for nucleated erythrocytes in Blood by Automated counOrdered By: Angela Aden on 02-13-2023 WBC corrected for nucl RBC Auto (Bld) [#/Vol] 12.0 10*3/uL 4.1-10.5 [facility] Lymphocytes Auto (Bld) [#/Vo l]Ordered By: Angela Aden on 02-13-2023 Lymphocytes (Bld) [#/Vol] 2.1 10*3/uL 1.00-4.8 [facility] Lymphocytes/100 WBC Auto (Bl d)Ordered By: Angela Aden on 02-13-2023 Lymphocytes/100 WBC (Bld) 17.7 % . [facility] MCH Auto (RBC) [Entitic mass ]Ordered By: Angela Aden on 02-13-2023 MCH (RBC) [Entitic mass] 29.0 pg 27.5-35.2 [facility] MCHC Auto (RBC) [Mass/Vol]Or dered By: Angela Aden on 02-13-2023 MCHC (RBC) [Mass/Vol] 34.0 g/dL 32.5-35.6 [facility] MCV Auto (RBC) [Entitic vol] Ordered By: Angela Aden on 02-13-2023 MCV (RBC) [Entitic vol] 85.2 fL 83.5-101 [facility] Magnesium [Mass/volume] in S mary or PlasmaOrdered By: Yakov To on 02-13-2023 Magnesium [Mass/Vol] 2.5 mg/dL 1.9-2.7 [facility] Monocyte distribution width [Entitic volume] in Blood by AutomatedOrdered By: Angela Aden on 02-13-2023 Monocyte distribution width Auto (Bld) [Entitic vol] 19.79 % 0.00-20.00 [facility] Monocytes Auto (Bld) [#/Vol] Ordered By: Angela Aden on 02-13-2023 Monocytes (Bld) [#/Vol] 1.0 10*3/uL 0.0-0.8 [facility] Monocytes/100 WBC Auto (Bld) Ordered By: Angela Aden on 02-13-2023 Monocytes/100 WBC (Bld) 8.0 % . [facility] Neutrophils Auto (Bld) [#/Vo l]Ordered By: Angela Aedn on 02-13-2023 Neutrophils (Bld) [#/Vol] 8.5 10*3/uL 1.8-7.7 [facility] Neutrophils/100 WBC Auto (Bl d)Ordered By: Angela Aden on 02-13-2023 Neutrophils/100 WBC (Bld) 70.8 % . [facility] Nitrite Test strip Ql (U)Ord ered By: Angela Aden on 02-13-2023 Nitrite Ql (U) Negative Negative [facility] No Panel InformationOrdered By: Angela Aden on 02-13-2023 Arterial Blood Base Excess 5.2 mmol/L -3.0-3.0 [facility] Arterial Blood Oxygen Content 9.0 mmol/L 6.6-9.7 [facility] Arterial Blood Oxygen Saturation 83.4 % 95.0-100.0 [facility] Arterial Blood Partial Pressure CO2 49.4 mm[Hg] 35.0-45.0 [facility] Arterial Blood Partial Pressure O2 48.2 mm[Hg] 80.0-100.0 [facility] Arterial Blood pH 7.42 7.35-7.45 [facility] Blood Gas Critical Value See comment [facility] Comment on above: Critical Value rdz d on: 02/13/2023 at 17:04 Blood Gas Sample Site Venous Fir [facility] FiO2 21 % [facility] Pharmacy Creatinine Clearance (Chem 39.26 [facility] Bedside Glucose Comment See comment [facility] Comment on above: Glu2: WILL NOTIFY DR /RN Nucleated erythrocytes [Pres ence] in Blood by Automated countOrdered By: Angela Aden on 02-13-2023 Nucleated RBC Auto Ql (Bld) 0.1 /100{WBC} 0-0.5 [facility] Platelet mean volume Auto (B ld) [Entitic vol]Ordered By: Angela Aden on 02-13-2023 Platelet mean volume (Bld) [Entitic vol] 8.6 fL 6.6-10.1 [facility] Platelet poor plasma interna tional normalized ratio (INR) by coagulation assay (relatOrdered By: Angela Aden on 02-13-2023 INR Coag (PPP) [Relative time] 2.3 {INR} [facility] Comment on above: INR Therapeutic Rang e [...] 02-13-2023 Platelets (Bld) [#/Vol] 218 10*3/uL 150-450 [facility] Potassium [Moles/volume] in Serum or PlasmaOrdered By: Angela Aden on 02-13-2023 Potassium [Moles/Vol] 2.9 mmol/L 3.5-5.1 [facility] Comment on above: Hemolysis is present at a level that could interfere with the result. Protein Auto test strip (U) [Mass/Vol]Ordered By: Angela Aden on 02-13-2023 Protein (U) [Mass/Vol] Negative Negative [facility] Protein [Mass/volume] in Ser um or PlasmaOrdered By: Angela Aden on 02-13-2023 Protein [Mass/Vol] 7.9 g/dL 6.4-8.9 [facility] RBC Auto (Bld) [#/Vol]Ordere d By: Angela Aden on 02-13-2023 RBC (Bld) [#/Vol] 5.72 10*6/uL 3.90-5.60 [facility] Serum or plasma albumin/glob ulin mass ratioOrdered By: Angela Aden on 02-13-2023 Albumin/Globulin [Mass ratio] 1.2 {ratio} [facility] Serum or plasma anion gap de terminationOrdered By: Angela Aden on 02-13-2023 Anion gap [Moles/Vol] 15.3 mmol/L 6.0-15.0 [facility] Sodium [Moles/volume] in Ser um or PlasmaOrdered By: Angela Aden on 02-13-2023 Sodium [Moles/Vol] 129 mmol/L 136-145 [facility] Specific gravity Auto test s trip (U) [Rel density]Ordered By: Angela Aden on 02-13-2023 Specific gravity (U) [Rel density] 1.018 1.001-1.03 0 [facility] Troponin I.cardiac [Mass/vol ume] in Serum or Plasma by Detection limit <= 0.01 ng/Ordered By: Angela Aden on 02-13-2023 Troponin I.cardiac DL <= 0.01 ng/mL [Mass/Vol] 69.4 pg/mL 0.0-20.0 [facility] Comment on above: Critical Result : Ca lled to and read back by: PROMISE VIEIRA at: 02/13/2023 18:35:16 by:[id number] Urea nitrogen [Mass/volume] in Serum or PlasmaOrdered By: Angela Aden on 02-13-2023 Urea nitrogen [Mass/Vol] 53 mg/dL 7-25 [facility] Urine clarity by refractomet ry automatedOrdered By: Angela Aden on 02-13-2023 Clarity Refractometry automated (U) Clear Clear [facility] Urine glucose measurement by automated test strip (mass/volume)Ordered By: Angela Aden on 02-13-2023 Glucose Auto test strip (U) [Mass/Vol] >=1000 mg/dL Normal [facility] Urine hemoglobin detection b y automated test stripOrdered By: Angela Aden on 02-13-2023 Hemoglobin Auto test strip Ql (U) Negative Negative [facility] Urine leukocyte esterase det ection by automated test stripOrdered By: Angela Aden on 02-13-2023 Leukocyte esterase Auto test strip Ql (U) Negative Negative [facility] Urobilinogen Auto test strip (U) [Mass/Vol]Ordered By: Angela Aden on 02-13-2023 Urobilinogen (U) [Mass/Vol] Normal mg/dL Normal [facility] WBC Auto (Bld) [#/Vol]Ordere d By: Angelajeyson Aden on 02-13-2023 WBC (Bld) [#/Vol] 12.0 10*3/uL 4.1-10.5 [facility] pH Auto test strip (U)Ordere d By: Angela Aden on 02-13-2023 pH (U) 6.0 [pH] 5.0-9.0 [facility] BNPon 01-29-2023 Natriuretic peptide B (Bld) [Mass/Vol] 6099.0 pg/mL Critically high <=900.0 [facility] Comment on above: Performed By: #### C MP, BNP ####[facility] [address] [place], [place] [address]Dr. Emelina Navarro CBC AUTO DIFFon 01-29-2023 BASO # 0.1 103/ul Normal 0.0-0.1 [facility] Comment on above: Performed By: #### C BC ####[facility] [address] [place], [place] [address]Dr. Emelina Navarro Basophils/100 WBC (Bld) 0.3 % Normal 0.2-2.0 [facility] Comment on above: Performed By: #### C BC ####[facility] [address] [place], [place] [address]Dr. Emelina Navarro EO # 0.3 103/ul Normal 0.0-0.7 [facility] Comment on above: Performed By: #### C BC ####[facility] [address] [place], [place] [address]Dr. Emelina Navarro Eosinophils/100 WBC (Bld) 1.9 % Normal 0.9-7.0 [facility] Comment on above: Performed By: #### C BC ####[facility] [address] [place], [place] [address]Dr. Emelina Navarro Erythrocyte distribution width (RBC) [Ratio] 18.5 % Critically high 11.0-15.0 [facility] Comment on above: Performed By: #### C BC ####[facility] [address] [place] [phone]. Emelina Navarro Hematocrit (Bld) [Volume fraction] 49.7 % Normal 42.0-54.0 [facility] Comment on above: Performed By: #### C BC ####[facility] [address] [place] [phone]. Emelina Navarro Hemoglobin (Bld) [Mass/Vol] 16.3 g/dL Normal 14.0-18.0 [facility] Comment on above: Performed By: #### C BC ####[facility] [address] [place] [phone]. Emelina Navarro IG # 0.07 10e3/ul Critically high 0.00-0.[address] [facility] Comment on above: Performed By: #### C BC ####[facility] [address] [place] [address]Dr. Emelina Navarro IG % 0.4 % Normal 0.0-0.5 [facility] Comment on above: Performed By: #### C BC ####[facility] [address] [place] [address]Dr. Emelina Ramon LYMPH # 2.6 103/ul Normal 1.2-3.8 [facility] Comment on above: Performed By: #### C BC ####[facility] [address] [place] [address]Dr. Emelina Ramon Lymphocytes/100 WBC (Bld) 16.9 % Critically low 20.5-60.0 [facility] Comment on above: Performed By: #### C BC ####[facility] [address] [place] [phone]. Awildanitza Navarro MANUAL DIFF REQ NO Normal [facility] Comment on above: Performed By: #### C BC ####[facility] [address] [place] [address]Dr. Emelina Navarro MCH (RBC) [Entitic mass] 28.4 pg Normal 25.9-34.0 [facility] Comment on above: Performed By: #### C BC ####[facility] [address] [place] [phone]. Emelina Navarro MCHC (RBC) [Mass/Vol] 32.8 g/dL Normal 29.9-35.2 [facility] Comment on above: Performed By: #### C BC ####[facility] [address] [place] [phone]. Emelina Navarro MCV (RBC) [Entitic vol] 86.6 fL Normal 80.0-94.0 [facility] Comment on above: Performed By: #### C BC ####[facility] [address] [place] [phone]. Emelina Navarro MONO # 1.2 103/ul Critically high 0.3-0.8 [facility] Comment on above: Performed By: #### C BC ####[facility] [address] [place] [address]Dr. Awildanitza Navarro Monocytes/100 WBC (Bld) 7.7 % Normal 1.7-12.0 [facility] Comment on above: Performed By: #### C BC ####[facility] [address] [place] [phone]. Emelina Navarro NEUT # 11.4 103/ul Critically high 1.4-6.5 [facility] Comment on above: Performed By: #### C BC ####[facility] [address] [place] [phone]. Emelina Ramon Neutrophils/100 WBC (Bld) 72.8 % Normal 43.0-75.0 [facility] Comment on above: Performed By: #### C BC ####[facility] [address] [place] [phone]. Emelina Navarro Platelet mean volume (Bld) [Entitic vol] 9.8 fL Normal 9.5-13.5 [facility] Comment on above: Performed By: #### C BC ####[facility] [address] [place] [phone]. Emelina Ramon PLT 200 103/ul Normal 150-450 [facility] Comment on above: Performed By: #### C BC ####[facility] [address] [place] [phone]. Emelina Navarro RBC 5.74 106/ul Normal 4.70-6.10 [facility] Comment on above: Performed By: #### C BC ####[facility] [address] [place] [phone]. Emelina Navarro WBC 15.6 103/ul Critically high 4.0-11.0 [facility] Comment on above: Performed By: #### C BC ####[facility] [address] [place] [phone]. Emelina Navarro DIGOXINon 01-29-2023 DIG 1.1 ng/mL Normal 0.9-2.0 [facility] Comment on above: Performed By: #### D IG ####[facility] [address] [place] [address]Dr. Emelina Navarro Office Visiton 01-29-2023 Follow-up visit [id number] Adwoa Porter 1955 M Date Provider Department Center 01/29/2023 SUSHIL CAO [facility] Family History Problem Relation Age of Onset Diabetes Mother Hypertension Mother Coronary artery disease Mother Family Status - Relation Status Age at Mother Level of Service:76767 ND OFFICE/OUTPATIENT ESTABLISHED MOD MDM 30-39 MIN Reason for Visit and Comments: Atrial Fibrillation [80] Coronary Artery Disease [187] Congestive Heart Failure [127] Normal [facility] PROF 14(COMP METB)on 023 Albumin [Mass/Vol] 3.8 g/dL Normal 3.4-5.0 [facility] Comment on above: Performed By: #### C MP, BNP ####[facility] [address] [place] [phone]. Emelina Navarro Albumin/Globulin [Mass ratio] 0.9 {ratio} Normal [facility] Comment on above: Performed By: #### C MP, BNP ####[facility] [address] [place] [phone]. Emelina Navarro ALP [Catalytic activity/Vol] 126 U/L Critically high 46-116 [facility] Comment on above: Performed By: #### C MP, BNP ####[facility] [address] [place] [address]Dr. Emelina Navarro ALT [Catalytic activity/Vol] 29 U/L Normal 16-63 [facility] Comment on above: Performed By: #### C MP, BNP ####[facility] [address] [place] [address]Dr. Emelina Navarro Anion gap [Moles/Vol] 12.2 mmol/L Normal [facility] Comment on above: Performed By: #### C MP, BNP ####[facility] [address] [place], [place] [address]Dr. Emelina Navarro AST [Catalytic activity/Vol] 28 U/L Normal 15-37 [facility] Comment on above: Performed By: #### C MP, BNP ####[facility] [address] [place], [place] [address]Dr. Emelina Navarro Bilirubin [Mass/Vol] 1.8 mg/dL Critically high 0.2-1.0 [facility] Comment on above: Performed By: #### C MP, BNP ####[facility] [address] [place], [place] [address]Dr. Emelina Navarro Calcium [Mass/Vol] 9.9 mg/dL Normal 8.5-10.1 [facility] Comment on above: Performed By: #### C MP, BNP ####[facility] [address] [place], [place] [address]Dr. Emelina Navarro Chloride [Moles/Vol] 96 mmol/L Critically low 98-107 [facility] Comment on above: Performed By: #### C MP, BNP ####[facility] [address] [place], [place] [address]Dr. Emelina Navarro CO2 [Moles/Vol] 33.6 mmol/L Critically high 21.0-32.0 [facility] Comment on above: Performed By: #### C MP, BNP ####[facility] [address] [place], [place] [address]Dr. Emelina Navarro Creatinine [Mass/Vol] 1.66 mg/dL Critically high 0.70-1.30 [facility] Comment on above: Performed By: #### C MP, BNP ####[facility] [address] [place] [address]Dr. Emelina Navarro EGFR-AF [place]IZ[place] 50 mL/min/1.73m2 Critically low >=60 [facility] Comment on above: Performed By: #### C MP, BNP ####[facility] [address] [place], [place] [address]Dr. Emelina Navarro EGFR-NON AF CITIZEN OF [place] 41 mL/min/1.73m2 Critically low >=60 [facility] Comment on above: Performed By: #### C MP, BNP ####[facility] [address] [place], [place] [address]Dr. Emelina Navarro Globulin (S) [Mass/Vol] 4.3 g/dL Normal [facility] Comment on above: Performed By: #### C MP, BNP ####[facility] [address] [place], [place] [address]Dr. Emelina Navarro Glucose [Mass/Vol] 218 mg/dL Critically high 74-106 [facility] [facility] Comment on above: Performed By: #### C MP, BNP ####[facility] Roroyeanmn[address] [place], [place] [address]Dr. Emelina Navarro Potassium [Moles/Vol] 4.8 mmol/L Normal 3.5-5.1 [facility] Comment on above: Performed By: #### C MP, BNP ####[facility] Tzqonxnzhk[address] [place], [place] [address]Dr. Emelina Navarro Protein [Mass/Vol] 8.1 g/dL Normal 6.4-8.2 [facility] Comment on above: Performed By: #### C MP, BNP ####[facility] Pbsxswujcg[address] [place], [place] [address]Dr. Emelina Navarro Sodium [Moles/Vol] 137 mmol/L Normal 136-145 [facility] Comment on above: Performed By: #### C MP, BNP ####[facility] Jojsjnrxkq[address] [place], [place] [address]Dr. Emelina Navarro Urea nitrogen [Mass/Vol] 31.0 mg/dL Critically high 7.0-18.0 [facility] Comment on above: Performed By: #### C MP, BNP ####[facility] Isjqtxbcll48[address] [place], [place] [address]Dr. Emelina Navarro Urea nitrogen/Creatinine [Mass ratio] 18.7 mg/mg Normal [facility] Comment on above: Performed By: #### C MP, BNP ####[facility] Hqbuwodvte[address] [place], [place] [address]Dr. Emelina Navarro BNPon 01-11-2023 Natriuretic peptide B (Bld) [Mass/Vol] 6024.0 pg/mL Critically high <=900.0 [facility] Comment on above: Performed By: #### B OBSERVATION NURSE, CMP ####[facility] Cxmajkbboo[address] [place], [place] [address]Dr. Emelina Navarro CBC AUTO DIFFon 01-11-2023 BASO # 0.0 103/ul Normal 0.0-0.1 [facility] Comment on above: Performed By: #### C BC ####[facility] Jnhizlfnom[address] [place], [place] [address]Dr. Emelina Navarro Basophils/100 WBC (Bld) 0.3 % Normal 0.2-2.0 [facility] Comment on above: Performed By: #### C BC ####[facility] Sasiyikknx[address] [place], [place] [address]Dr. Emelina Navarro EO # 0.4 103/ul Normal 0.0-0.7 [facility] Comment on above: Performed By: #### C BC ####[facility] Oknopnqias9063[address] [place], [place] [address]Dr. Emelina Navarro Eosinophils/100 WBC (Bld) 3.3 % Normal 0.9-7.0 [facility] Comment on above: Performed By: #### C BC ####[facility] Maswdjympn16[address] [place], [place] [address]Dr. Emelina Navarro Erythrocyte distribution width (RBC) [Ratio] 16.7 % Critically high 11.0-15.0 [facility] Comment on above: Performed By: #### C BC ####[facility] [address] [place] [address]Dr. Emelina Navarro Hematocrit (Bld) [Volume fraction] 41.5 % Critically low 42.0-54.0 [facility] Comment on above: Performed By: #### C BC ####[facility] [address]vkkjhgsyz[address] [place] [address]DrWesley Emelina Navarro Hemoglobin (Bld) [Mass/Vol] 13.8 g/dL Critically low 14.0-18.0 [facility] Comment on above: Performed By: #### C BC ####[facility] Xiswdihdxx29[address] [place], [place] [address]Dr. Emelina Ramon IG # 0.04 10e3/ul Critically high 0.00-0.[address] [facility] Comment on above: Performed By: #### C BC ####[facility] Mcbaawymst[address] [place], [place] [address]Dr. Emelina Navarro IG % 0.3 % Normal 0.0-0.5 [facility] Comment on above: Performed By: #### C BC ####[facility] Azvzdqtysc[address] [place], [place] [address]DrWesley Emelina Ramon LYMPH # 1.8 103/ul Normal 1.2-3.8 [facility] Comment on above: Performed By: #### C BC ####[facility] Dqjixfgiyt[address] [place], [place] [address]DrWesley Awildanitza Navarro Lymphocytes/100 WBC (Bld) 15.1 % Critically low 20.5-60.0 [facility] Comment on above: Performed By: #### C BC ####[facility] [address] [place] [address]DrWesley Awildanitza Navarro MANUAL DIFF REQ NO Normal [facility] Comment on above: Performed By: #### C BC ####[facility] Crleuuguot[address] [place] [address]DrWesley Navarro MCH (RBC) [Entitic mass] 29.0 pg Normal 25.9-34.0 [facility] Comment on above: Performed By: #### C BC ####[facility] Mapzwkmiti[address] [place] [id number]. Emelina Navarro MCHC (RBC) [Mass/Vol] 33.3 g/dL Normal 29.9-35.2 [facility] Comment on above: Performed By: #### C BC ####[facility] Kpfql[address]xapx9[address] [place] [id number]. Emelina Ramon MCV (RBC) [Entitic vol] 87.2 fL Normal 80.0-94.0 [facility] Comment on above: Performed By: #### C BC ####[facility] Okfuufsnbs[address] [place] [id number]. Emelina Navarro MONO # 0.7 103/ul Normal 0.3-0.8 [facility] Comment on above: Performed By: #### C BC ####[facility] A[address] [place] [address]Dr. Emelina Navarro Monocytes/100 WBC (Bld) 5.9 % Normal 1.7-12.0 [facility] Comment on above: Performed By: #### C BC ####[facility] Uxdjoflmax37[address] [place] [phone]. Awildanitza Ramon NEUT # 8.9 103/ul Critically high 1.4-6.5 [facility] Comment on above: Performed By: #### C BC ####[facility] Reznqzybef[address] [place] [phone]. Emelina Navarro Neutrophils/100 WBC (Bld) 75.1 % Critically high 43.0-75.0 [facility] Comment on above: Performed By: #### C BC ####[facility] Joyzegnged8[address] [place] [phone] Navarro Platelet mean volume (Bld) [Entitic vol] 11.7 fL Normal 9.5-13.5 [facility] Comment on above: Performed By: #### C BC ####[facility] Ctvwsvbfwf8636 [place] [phone] Navarro PLT 124 103/ul Critically low 150-450 [facility] Comment on above: Performed By: #### C BC ####[facility] U[address]kxrdoyn[address] [place] [address]Dr. Emelina Navarro RBC 4.76 106/ul Normal 4.70-6.10 [facility] Comment on above: Performed By: #### C BC ####[facility] Dbzhwliotl[address]772 [place] [phone]. Emelina Navarro WBC 11.8 103/ul Critically high 4.0-11.0 [facility] Comment on above: Performed By: #### C BC ####[facility] Brxbrybrlr[address] [place] [address]Dr. Emelina Navarro POINT OF CARE GLUCOSEon 12-21 Glucose [Mass/Vol] 339 mg/dL Critically high 74-106 [facility] Comment on above: Performed By: #### P OCGLUC ####[facility] Riyggaeokg[address] [place], [place] [address]Dr. Emelina Navarro PROF 14(COMP METB)on 023 Albumin [Mass/Vol] 3.3 g/dL Critically low 3.4-5.0 [facility] Comment on above: Performed By: #### B OBSERVATION NURSE, CMP ####[facility] Svjtihbeeb[address] [place], [place] [address]Dr. Emelina Navarro Albumin/Globulin [Mass ratio] 0.8 {ratio} Normal [facility] Comment on above: Performed By: #### B OBSERVATION NURSE, CMP ####[facility] Dcwnkxhxfd32[address] [place] [address]Dr. Emelina Navarro ALP [Catalytic activity/Vol] 163 U/L Critically high 46-116 [facility] Comment on above: Performed By: #### B OBSERVATION NURSE, CMP ####[facility] Xdmilokmfq1354[address] [place], [place] [address]Dr. Emelina Navarro ALT [Catalytic activity/Vol] 27 U/L Normal 16-63 [facility] Comment on above: Performed By: #### B OBSERVATION NURSE, CMP ####[facility] Tzgrrdetjp[address] [place], [place] [address]Dr. Emelina Naavrro Anion gap [Moles/Vol] 10.5 mmol/L Normal [facility] Comment on above: Performed By: #### B OBSERVATION NURSE, CMP ####[facility] Jypzvxmbfl3[address] [place], [place] [address]Dr. Emelina Navarro AST [Catalytic activity/Vol] 28 U/L Normal 15-37 [facility] Comment on above: Performed By: #### B OBSERVATION NURSE, CMP ####[facility] Tzouhzsjyl14[address] [place], [place] [address]Dr. Emelina Navarro Bilirubin [Mass/Vol] 1.3 mg/dL Critically high 0.2-1.0 [facility] Comment on above: Performed By: #### B OBSERVATION NURSE, CMP ####[facility] Afdikrjjzq513[address] [place], [place] [address]Dr. Emelina Navarro Calcium [Mass/Vol] 9.0 mg/dL Normal 8.5-10.1 [facility] Comment on above: Performed By: #### B OBSERVATION NURSE, CMP ####[facility] Ndhkwzvqqg86[address] [place], [place] [address]Dr. Awildanitza Navarro Chloride [Moles/Vol] 91 mmol/L Critically low 98-107 [facility] Comment on above: Performed By: #### B OBSERVATION NURSE, CMP ####[facility] Yixxioutzw037[address] [place], [place] [address]Dr. Emelina Navarro CO2 [Moles/Vol] 32.9 mmol/L Critically high 21.0-32.0 [facility] Comment on above: Performed By: #### B OBSERVATION NURSE, CMP ####[facility] Fwyeciyoxz3632[address] [place], [place] [address]Dr. Emelina Navarro Creatinine [Mass/Vol] 1.84 mg/dL Critically high 0.70-1.30 [facility] Comment on above: Performed By: #### B OBSERVATION NURSE, CMP ####[facility] Zahkvtptcd62[address] [place], [place] [address]Dr. Emelina Navarro EGFR-AF CITIZ[place] 45 mL/min/1.73m2 Critically low >=60 [facility] Comment on above: Performed By: #### B OBSERVATION NURSE, CMP ####[facility] [address]fzsn[address] [place] [address]Dr. Emelina Navarro EGFR-NON AF CITIZEN [place] 37 mL/min/1.73m2 Critically low >=60 [facility] Comment on above: Performed By: #### B OBSERVATION NURSE, CMP ####[facility] Bijryiyyld2278[address] [place], [place] [address]Dr. Emelina Navarro Globulin (S) [Mass/Vol] 4.3 g/dL Normal [facility] Comment on above: Performed By: #### B OBSERVATION NURSE, CMP ####[facility] Pffqqpqywm0413[address] [place], [place] [address]Dr. Emelina Navarro Glucose [Mass/Vol] 305 mg/dL Critically high 74-106 [facility] Comment on above: Performed By: #### B OBSERVATION NURSE, CMP ####[facility] Ftzvswpgly6627[address] [place], [place] [address]Dr. Emelina Navarro Potassium [Moles/Vol] 3.4 mmol/L Critically low 3.5-5.1 [facility] Comment on above: Performed By: #### B OBSERVATION NURSE, CMP ####[facility] Makweqefjt8607[address] [place], [place] [address]Dr. Emelina Navarro Protein [Mass/Vol] 7.6 g/dL Normal 6.4-8.2 [facility] Comment on above: Performed By: #### B OBSERVATION NURSE, CMP ####[facility] Juorwjjvfv2427[address] [place], [place] [address]Dr. Emelina Navarro Sodium [Moles/Vol] 131 mmol/L Critically low 136-145 [facility] Comment on above: Performed By: #### B OBSERVATION NURSE, CMP ####[facility] Ipnyhnsosd[address] [place], [place] [address]Dr. Emelina Navarro Urea nitrogen [Mass/Vol] 62.0 mg/dL Critically high 7.0-18.0 [facility] Comment on above: Performed By: #### B OBSERVATION NURSE, CMP ####[facility] Dxplxycoef3733[address] [place], [place] [address]Dr. Emelina Navarro Urea nitrogen/Creatinine [Mass ratio] 33.7 mg/mg Normal [facility] Comment on above: Performed By: #### B OBSERVATION NURSE, CMP ####[facility] Trplueobjt4359[address] [place], [place] [address]Dr. Awildanitza Navarro BNPon 01-10-2023 Natriuretic peptide B (Bld) [Mass/Vol] 8763.0 pg/mL Critically high <=900.0 [facility] Comment on above: Performed By: #### C MP, BNP ####[facility] Sgklcstesf[address] [place], [place] [address]Dr. Emelina Navarro CBC AUTO DIFFon 01-10-2023 BASO # 0.0 103/ul Normal 0.0-0.1 [facility] Comment on above: Performed By: #### C BC ####[facility] Kakfkwwand[address] [place], [place] [address]Dr. Emelina Navarro Basophils/100 WBC (Bld) 0.4 % Normal 0.2-2.0 [facility] Comment on above: Performed By: #### C BC ####[facility] Avqmducynp7213[address] [place], [place] [address]Dr. Emelina Navarro EO # 0.3 103/ul Normal 0.0-0.7 [facility] Comment on above: Performed By: #### C BC ####[facility] Nmpwofxqyg7163[address] [place], [place] [address]Dr. Emelina Navarro Eosinophils/100 WBC (Bld) 2.8 % Normal 0.9-7.0 [facility] Comment on above: Performed By: #### C BC ####[facility] Esugbnogdz7077[address] [place], [place] [address]Dr. Emelina Navarro Erythrocyte distribution width (RBC) [Ratio] 17.2 % Critically high 11.0-15.0 [facility] Comment on above: Performed By: #### C BC ####[facility] Iydhxbsqcg3959[address] [place], [place] [address]Dr. Emelina Navaror Hematocrit (Bld) [Volume fraction] 42.1 % Normal 42.0-54.0 [facility] Comment on above: Performed By: #### C BC ####[facility] Gnhcljhbqx4[address] [place], [place] [address]DrWesley Navarro Hemoglobin (Bld) [Mass/Vol] 13.3 g/dL Critically low 14.0-18.0 [facility] Comment on above: Performed By: #### C BC ####[facility] Ileogicxhi[address] [place] [address]DrWesley Navarro IG # 0.05 10e3/ul Critically high 0.00-0.[address] [facility] Comment on above: Performed By: #### C BC ####[facility] Yxpxmhcsmf34[address] [place] [address]Dr. Emelina Navarro IG % 0.4 % Normal 0.0-0.5 [facility] Comment on above: Performed By: #### C BC ####[facility] Obnwvzhmjb4406[address] [place], [place] [address]DrWesley Navarro LYMPH # 1.7 103/ul Normal 1.2-3.8 [facility] Comment on above: Performed By: #### C BC ####[facility] Bfbnthzhra7[address] [place], [place] [address]DrWesley Navarro Lymphocytes/100 WBC (Bld) 14.8 % Critically low 20.5-60.0 [facility] Comment on above: Performed By: #### C BC ####[facility] Qazenhbvjk6961[address] [place], [place] [address]DrWesley Navarro MANUAL DIFF REQ NO Normal [facility] Comment on above: Performed By: #### C BC ####[facility] Msplwsxoea[address] [place], [place] [address]DrWesley Navarro MCH (RBC) [Entitic mass] 28.4 pg Normal 25.9-34.0 [facility] Comment on above: Performed By: #### C BC ####[facility] Unvlnglxeq7734[address] [place], [place] [address]DrWesley Navarro MCHC (RBC) [Mass/Vol] 31.6 g/dL Normal 29.9-35.2 [facility] Comment on above: Performed By: #### C BC ####[facility] Bkzrahtldl14[address] [place], [place] [address]DrWesley Navarro MCV (RBC) [Entitic vol] 89.8 fL Normal 80.0-94.0 [facility] Comment on above: Performed By: #### C BC ####[facility] Pnlulrqlwd9374 [place] [id number] Emelina Navarro MONO # 0.9 103/ul Critically high 0.3-0.8 [facility] Comment on above: Performed By: #### C BC ####[facility] Jjoqibjtec1548 [place] [address]DrWesley Kaisernitza Ramon Monocytes/100 WBC (Bld) 7.6 % Normal 1.7-12.0 [facility] Comment on above: Performed By: #### C BC ####[facility] Lpsmkpedao33[address] [place], [place] [address]Dr. Emelina Navarro NEUT # 8.4 103/ul Critically high 1.4-6.5 [facility] Comment on above: Performed By: #### C BC ####[facility] Lkpstyeopz[address] [place], [place] [address]Dr. Emelina Ramon Neutrophils/100 WBC (Bld) 74.0 % Normal 43.0-75.0 [facility] Comment on above: Performed By: #### C BC ####[facility] Ggtuljxzdd[address]24[address] [place], [place] [address]DrWesley Kaisernitza Ramon Platelet mean volume (Bld) [Entitic vol] 11.1 fL Normal 9.5-13.5 [facility] Comment on above: Performed By: #### C BC ####[facility] Nlcyhozglb2284 [place] [phone]. Awildanitza Ramon PLT 111 103/ul Critically low 150-[address] [facility] Comment on above: Performed By: #### C BC ####[facility] [address]cegt[address]ih[address] [place], [place] [id number] Navarro RBC 4.69 106/ul Critically low 4.70-6.10 [facility] Comment on above: Performed By: #### C BC ####[facility] Wfglucpweq8[address] [place], [place] [address]DrWesley Navarro WBC 11.4 103/ul Critically high 4.0-11.0 [facility] Comment on above: Performed By: #### C BC ####[facility] Zhglwwwejj5[address] [place] [address]Dr. Emelina Navarro PROF 14(COMP METB)on 023 Albumin [Mass/Vol] 3.3 g/dL Critically low 3.4-5.0 [facility] Comment on above: Performed By: #### C MP, BNP ####[facility] Dqpqczztob64[address] [place] [address]Dr. Emelina Navarro Albumin/Globulin [Mass ratio] 0.8 {ratio} Normal [facility] Comment on above: Performed By: #### C MP, BNP ####[facility] Pvluazpyzm[address] [place], [place] [address]Dr. Emelina Navarro ALP [Catalytic activity/Vol] 165 U/L Critically high 46-116 [facility] Comment on above: Performed By: #### C MP, BNP ####[facility] Yhmyctkoll3[address] [place], [place] [address]Dr. Emelina Navarro ALT [Catalytic activity/Vol] 27 U/L Normal 16-63 [facility] Comment on above: Performed By: #### C MP, BNP ####[facility] Svpqnpimyw15[address] [place] [address]Dr. Emelina Navarro Anion gap [Moles/Vol] 9.5 mmol/L Normal [facility] Comment on above: Performed By: #### C MP, BNP ####[facility] Oymedfuaqi18[address] [place], [place] [address]Dr. Emelina Navarro AST [Catalytic activity/Vol] 24 U/L Normal 15-37 [facility] Comment on above: Performed By: #### C MP, BNP ####[facility] Ghlcqiyfwc[address] [place], [place] [address]Dr. Emelina Navarro Bilirubin [Mass/Vol] 1.3 mg/dL Critically high 0.2-1.0 [facility] Comment on above: Performed By: #### C MP, BNP ####[facility] Tbevtbxkdy[address] [place] [address]Dr. Emelina Navarro Calcium [Mass/Vol] 9.3 mg/dL Normal 8.5-10.1 [facility] Comment on above: Performed By: #### C MP, BNP ####[facility] Foarkbssvq[address] [place], [place] [address]Dr. Emelina Navarro Chloride [Moles/Vol] 93 mmol/L Critically low 98-107 [facility] Comment on above: Performed By: #### C MP, BNP ####[facility] Psstnwfrxv5301[address] [place], [place] [address]Dr. Emelina Navarro CO2 [Moles/Vol] 36.4 mmol/L Critically high 21.0-32.0 [facility] Comment on above: Performed By: #### C MP, BNP ####[facility] Swyrnpvyip[address] [place], [place] [address]Dr. Emelina Navarro Creatinine [Mass/Vol] 1.99 mg/dL Critically high 0.70-1.30 [facility] Comment on above: Performed By: #### C MP, BNP ####[facility] Pqetixitvs[address] [place], [place] [address]Dr. Emelina Navarro EGFR-AF [place]IZ[place] 41 mL/min/1.73m2 Critically low >=60 [facility] Comment on above: Performed By: #### C MP, BNP ####[facility] Yueydpgodu[address] [place], [place] [address]Dr. Emelina Navarro EGFR-NON AF [place]IZ[place] 34 mL/min/1.73m2 Critically low >=60 [facility] Comment on above: Performed By: #### C MP, BNP ####[facility] Rthxuggcot7246[address] [place], [place] [address]Dr. Emelina Navarro Globulin (S) [Mass/Vol] 4.2 g/dL Normal [facility] Comment on above: Performed By: #### C MP, BNP ####[facility] Cwrqpqevcm[address] [place], [place] [address]Dr. Awildanitza Ramon Glucose [Mass/Vol] 311 mg/dL Critically high 74-106 [facility] Comment on above: Performed By: #### C MP, BNP ####[facility] Waknhmvulq[address] [place], [place] [address]Dr. Emelina Navarro Potassium [Moles/Vol] 3.9 mmol/L Normal 3.5-5.1 [facility] Comment on above: Performed By: #### C MP, BNP ####[facility] Nthhdjkdel[address] [place], [place] [address]Dr. Emelina Navarro Protein [Mass/Vol] 7.5 g/dL Normal 6.4-8.2 [facility] Comment on above: Performed By: #### C MP, BNP ####[facility] Iqmptuzwqf[address] [place], [place] [address]Dr. Emelina Navarro Sodium [Moles/Vol] 135 mmol/L Critically low 136-145 [facility] Comment on above: Performed By: #### C MP, BNP ####[facility] Sidcsutevi[address] [place], [place] [address]Dr. Emelina Navarro Urea nitrogen [Mass/Vol] 57.0 mg/dL Critically high 7.0-18.0 [facility] Comment on above: Performed By: #### C MP, BNP ####[facility] Xncrfqhhaf[address] [place], [place] [address]Dr. Emelina Navarro Urea nitrogen/Creatinine [Mass ratio] 28.6 mg/mg Normal [facility] Comment on above: Performed By: #### C MP, BNP ####[facility] Anxavwhknt8264[address] [place], [place] [address]Dr. Emelina Navarro BNPon 01-09-2023 Natriuretic peptide B (Bld) [Mass/Vol] 9097.0 pg/mL Critically high <=900.0 [facility] Comment on above: Performed By: #### B OBSERVATION NURSE, CMP ####[facility] Hnbam[address] [place], [place] [address]Dr. Emelina Navarro CBC AUTO DIFFon 01-09-2023 BASO # 0.0 103/ul Normal 0.0-0.1 [facility] Comment on above: Performed By: #### C BC ####[facility] [address] [place] [address]Dr. Emelina Navarro Basophils/100 WBC (Bld) 0.2 % Normal 0.2-2.0 [facility] Comment on above: Performed By: #### C BC ####[facility] Hdocmdrmty[address] [place], [place] [address]Dr. Emelina Navarro EO # 0.2 103/ul Normal 0.0-0.7 [facility] Comment on above: Performed By: #### C BC ####[facility] Jgxefjavib7[address] [place], [place] [address]Dr. Emelina Navarro Eosinophils/100 WBC (Bld) 2.1 % Normal 0.9-7.0 [facility] Comment on above: Performed By: #### C BC ####[facility] Ycfimjovwa[address] [place], [place] [address]Dr. Emelina Navarro Erythrocyte distribution width (RBC) [Ratio] 17.1 % Critically high 11.0-15.0 [facility] Comment on above: Performed By: #### C BC ####[facility] Y[address]jyjv[address] [place], [place] [address]Dr. Emelina Navarro Hematocrit (Bld) [Volume fraction] 40.5 % Critically low 42.0-54.0 [facility] Comment on above: Performed By: #### C BC ####[facility] Fzfsngkd[address] [place], [place] [address]Dr. Emelina Navarro Hemoglobin (Bld) [Mass/Vol] 13.0 g/dL Critically low 14.0-18.0 [facility] Comment on above: Performed By: #### C BC ####[facility] Xznffbdbel[address] [place], [place] [address]Dr. Emelina Navarro IG # 0.06 10e3/ul Critically high 0.00-0.[address] [facility] Comment on above: Performed By: #### C BC ####[facility] Fxptlbcbpa[address] [place], [place] [address]Dr. Emelina Navarro IG % 0.5 % Normal 0.0-0.5 [facility] Comment on above: Performed By: #### C BC ####[facility] [address] [place] [phone]. Emelina Navarro LYMPH # 1.6 103/ul Normal 1.2-3.8 [facility] Comment on above: Performed By: #### C BC ####[facility] Vjh[address]dkfnm2592 [place], [place] [address]Yo. Emelina Navarro Lymphocytes/100 WBC (Bld) 14.1 % Critically low 20.5-60.0 [facility] Comment on above: Performed By: #### C BC ####[facility] Xjv[address]unldb[address] [place] [phone]. Emelina Ramon MANUAL DIFF REQ NO Normal [facility] Comment on above: Performed By: #### C BC ####[facility] M[address]zwrzzqo[address] [place] [phone]. Emelina Ramon MCH (RBC) [Entitic mass] 28.4 pg Normal 25.9-34.0 [facility] Comment on above: Performed By: #### C BC ####[facility] [address]es[address] [place] [phone]. Emelina Navarro MCHC (RBC) [Mass/Vol] 32.1 g/dL Normal 29.9-35.2 [facility] Comment on above: Performed By: #### C BC ####[facility] Fnuvgjxhph[address] [place] [phone]. Emelina Navarro MCV (RBC) [Entitic vol] 88.4 fL Normal 80.0-94.0 [facility] Comment on above: Performed By: #### C BC ####[facility] Rgzpaxlvpc[address] [place] [phone]. Emelina Ramon MONO # 0.9 103/ul Critically high 0.3-0.8 [facility] Comment on above: Performed By: #### C BC ####[facility] Fnfsgebfro119[address] [place] [phone]. Emelina Ramon Monocytes/100 WBC (Bld) 8.0 % Normal 1.7-12.0 [facility] Comment on above: Performed By: #### C BC ####[facility] [address]zb[address]qc[address] [place] [phone]. Emelina Navarro NEUT # 8.6 103/ul Critically high 1.4-6.5 [facility] Comment on above: Performed By: #### C BC ####[facility] Iwirywvrnx030[address] [place] [phone]. Emelina Navarro Neutrophils/100 WBC (Bld) 75.1 % Critically high 43.0-75.0 [facility] Comment on above: Performed By: #### C BC ####[facility] Ucouimbnhe[address] [place] [phone]. Emelina Navarro Platelet mean volume (Bld) [Entitic vol] 11.2 fL Normal 9.5-13.5 [facility] Comment on above: Performed By: #### C BC ####[facility] [address]ib[address] [place] [phone]. Emelina Navarro PLT 99 103/ul Critically low 150-[address] [facility] Comment on above: Performed By: #### C BC ####[facility] Ysceioavte[address] [place] [phone]. Emelina Navarro RBC 4.58 106/ul Critically low 4.70-6.10 [facility] Comment on above: Performed By: #### C BC ####[facility] Jdeqbrwlvq5[address] [place] [phone]. Emelina Navarro WBC 11.5 103/ul Critically high 4.0-11.0 [facility] Comment on above: Performed By: #### C BC ####[facility] Taedxjwhqx[address] [place] [phone]. Emelina Navarro CT HEAD WO CONon 01-09-2023 CT HEAD WO CON Normal [facility] PROF 14(COMP METB)on 023 Albumin [Mass/Vol] 3.2 g/dL Critically low 3.4-5.0 [facility] Comment on above: Performed By: #### B OBSERVATION NURSE, CMP ####[facility] Sm[address]wajdezh[address] [place] [phone]. Emelina Navarro Albumin/Globulin [Mass ratio] 0.8 {ratio} Normal [facility] Comment on above: Performed By: #### B OBSERVATION NURSE, CMP ####[facility] [address]wlvnw33[address] [place] [phone]. Emelina Navarro ALP [Catalytic activity/Vol] 150 U/L Critically high 46-116 [facility] Comment on above: Performed By: #### B OBSERVATION NURSE, CMP ####[facility] Zexfkrmlur[address] [place] [phone]. Emelina Navarro ALT [Catalytic activity/Vol] 27 U/L Normal 16-63 [facility] Comment on above: Performed By: #### B OBSERVATION NURSE, CMP ####[facility] Hjrvtopmqg[address] [place], [place] [address]Dr. Emelina Navarro Anion gap [Moles/Vol] 9.7 mmol/L Normal [facility] Comment on above: Performed By: #### B OBSERVATION NURSE, CMP ####[facility] Icfhmiyalt3[address] [place], [place] [address]Dr. Emelina Navarro AST [Catalytic activity/Vol] 29 U/L Normal 15-37 [facility] Comment on above: Performed By: #### B OBSERVATION NURSE, CMP ####[facility] [address]qft[address] [place], [place] [id number]. Emelina Navarro Bilirubin [Mass/Vol] 1.3 mg/dL Critically high 0.2-1.0 [facility] Comment on above: Performed By: #### B OBSERVATION NURSE, CMP ####[facility] Nxcvcieonn8[address] [place] [phone]. Emelina Navarro Calcium [Mass/Vol] 9.0 mg/dL Normal 8.5-10.1 [facility] Comment on above: Performed By: #### B OBSERVATION NURSE, CMP ####[facility] Eaylzpemrf[address] [place] [phone]. Emelina Navarro Chloride [Moles/Vol] 93 mmol/L Critically low 98-107 [facility] Comment on above: Performed By: #### B OBSERVATION NURSE, CMP ####[facility] Gwldrjheke[address] [place], [place] [address]Dr. Emelina Navarro CO2 [Moles/Vol] 33.6 mmol/L Critically high 21.0-32.0 [facility] Comment on above: Performed By: #### B OBSERVATION NURSE, CMP ####[facility] Poigxzsajk[address]24[address] [place], [place] [address]Dr. Emelina Navarro Creatinine [Mass/Vol] 1.75 mg/dL Critically high 0.70-1.30 [facility] Comment on above: Performed By: #### B OBSERVATION NURSE, CMP ####[facility] Kvthxpvqto[address] [place], [place] [address]Dr. Emelina Navarro EGFR-AF CITIZ[place] 47 mL/min/1.73m2 Critically low >=60 [facility] Comment on above: Performed By: #### B OBSERVATION NURSE, CMP ####[facility] Jybxdgwtrn[address] [place], [place] [address]Dr. Emelina Navarro EGFR-NON AF CITIZ[place] 39 mL/min/1.73m2 Critically low >=60 [facility] Comment on above: Performed By: #### B OBSERVATION NURSE, CMP ####[facility] Xfhxjlcgks[address] [place], [place] [address]Dr. Emelina Navarro Globulin (S) [Mass/Vol] 4.1 g/dL Normal [facility] Comment on above: Performed By: #### B OBSERVATION NURSE, CMP ####[facility] Vcqvppjuiq[address] [place], [place] [address]Dr. Emelina Navarro Glucose [Mass/Vol] 235 mg/dL Critically high 74-106 [facility] Comment on above: Performed By: #### B OBSERVATION NURSE, CMP ####[facility] Bxwrixewho[address] [place], [place] [address]Dr. Emelina Navarro Potassium [Moles/Vol] 3.3 mmol/L Critically low 3.5-5.1 [facility] Comment on above: Performed By: #### B OBSERVATION NURSE, CMP ####[facility] Wxcmdjoszq03[address] [place], [place] [address]Dr. Emelina Navarro Protein [Mass/Vol] 7.3 g/dL Normal 6.4-8.2 [facility] Comment on above: Performed By: #### B OBSERVATION NURSE, CMP ####[facility] Hlpztbwbmh[address] [place], [place] [address]Dr. mEelina Navarro Sodium [Moles/Vol] 133 mmol/L Critically low 136-145 [facility] Comment on above: Performed By: #### B OBSERVATION NURSE, CMP ####[facility] Iswphkcinb4437[address] [place], [place] [address]Dr. Emelina Navarro Urea nitrogen [Mass/Vol] 50.0 mg/dL Critically high 7.0-18.0 [facility] Comment on above: Performed By: #### B OBSERVATION NURSE, CMP ####[facility] Ijhhydixib1884[address] [place], [place] [address]Dr. Emelina Ramon Urea nitrogen/Creatinine [Mass ratio] 28.6 mg/mg Normal [facility] Comment on above: Performed By: #### B OBSERVATION NURSE, CMP ####[facility] Ncwjvdohqb27[address] [place], [place] [address]Dr. Emelina Ramon BNPon 01-08-2023 Natriuretic peptide B (Bld) [Mass/Vol] 8174.0 pg/mL Critically high <=900.0 [facility] Comment on above: Performed By: #### B OBSERVATION NURSE ####[facility] Zhomeyyiup9[address] [place], [place] [address]Dr. Emelina Ramon CBC AUTO DIFFon 01-08-2023 BASO # 0.0 103/ul Normal 0.0-0.1 [facility] Comment on above: Performed By: #### C BC ####[facility] Xblbzoldlv[address] [place], [place] [address]Dr. Emelina Ramon Basophils/100 WBC (Bld) 0.2 % Normal 0.2-2.0 [facility] Comment on above: Performed By: #### C BC ####[facility] Cboznfhleb5543[address] [place], [place] [address]Dr. Emelina Navarro EO # 0.2 103/ul Normal 0.0-0.7 [facility] Comment on above: Performed By: #### C BC ####[facility] Twcntermhy6[address] [place], [place] [address]Dr. Emelina Navarro Eosinophils/100 WBC (Bld) 1.7 % Normal 0.9-7.0 [facility] Comment on above: Performed By: #### C BC ####[facility] Tijeprvvup7[address] [place], [place] [address]DrWesley Navarro Erythrocyte distribution width (RBC) [Ratio] 17.4 % Critically high 11.0-15.0 [facility] Comment on above: Performed By: #### C BC ####[facility] Pkalnhvdzq3[address] [place], [place] [address]DrWesley Navarro Hematocrit (Bld) [Volume fraction] 40.8 % Critically low 42.0-54.0 [facility] Comment on above: Performed By: #### C BC ####[facility] Nlhcwtmkhs[address] [place], [place] [address]DrWesley Navarro Hemoglobin (Bld) [Mass/Vol] 13.3 g/dL Critically low 14.0-18.0 [facility] Comment on above: Performed By: #### C BC ####[facility] Fqnhkrlgmg2[address] [place], [place] [address]DrWesley Navarro IG # 0.05 10e3/ul Critically high 0.00-0.[address] [facility] Comment on above: Performed By: #### C BC ####[facility] Ensqjtyusi7496[address] [place], [place] [address]DrWesley Navarro IG % 0.4 % Normal 0.0-0.5 [facility] Comment on above: Performed By: #### C BC ####[facility] Puknkhytpb36[address] [place], [place] [address]DrWesley Navarro LYMPH # 1.7 103/ul Normal 1.2-3.8 [facility] Comment on above: Performed By: #### C BC ####[facility] Ndhosayzmd9326[address] [place], [place] [address]DrWesley Navarro Lymphocytes/100 WBC (Bld) 12.5 % Critically low 20.5-60.0 [facility] Comment on above: Performed By: #### C BC ####[facility] Arqxzzmwxz07[address] [place], [place] [address]DrWesley Navarro MANUAL DIFF REQ NO Normal [facility] Comment on above: Performed By: #### C BC ####[facility] Vnuwvzorbi42[address] [place] [phone] Kaisernitza Ramon MCH (RBC) [Entitic mass] 29.1 pg Normal 25.9-34.0 [facility] Comment on above: Performed By: #### C BC ####[facility] Oquosnbuvw9[address] [place], [place] [address]DrWesley Navarro MCHC (RBC) [Mass/Vol] 32.6 g/dL Normal 29.9-35.2 [facility] Comment on above: Performed By: #### C BC ####[facility] Yzkffpwaec4[address] [place], [place] [address]DrWesley Navarro MCV (RBC) [Entitic vol] 89.3 fL Normal 80.0-94.0 [facility] Comment on above: Performed By: #### C BC ####[facility] Okqnyspcqh7621[address] [place], [place] [address]DrWesley Navarro MONO # 1.0 103/ul Critically high 0.3-0.8 [facility] Comment on above: Performed By: #### C BC ####[facility] Qudugtcboi8415[address] [place], [place] [address]DrWesley Navarro Monocytes/100 WBC (Bld) 7.6 % Normal 1.7-12.0 [facility] Comment on above: Performed By: #### C BC ####[facility] Ihoagzolah64[address] [place], [place] [address]DrWesley Navarro NEUT # 10.3 103/ul Critically high 1.4-6.5 [facility] Comment on above: Performed By: #### C BC ####[facility] Axkcozpirc0465[address] [place], [place] [address]DrWesley Navarro Neutrophils/100 WBC (Bld) 77.6 % Critically high 43.0-75.0 [facility] Comment on above: Performed By: #### C BC ####[facility] Xhjznjhspt95[address] [place], [place] [address]DrWesley Navarro Platelet mean volume (Bld) [Entitic vol] 11.0 fL Normal 9.5-13.5 [facility] Comment on above: Performed By: #### C BC ####[facility] Vyeubnoxrd7[address] [place] [phone]. Emelina Navarro PLT 106 103/ul Critically low 150-450 [facility] Comment on above: Performed By: #### C BC ####[facility] Jztoakekyl5194 [place] [phone]. Emelina Navarro RBC 4.57 106/ul Critically low 4.70-6.10 [facility] Comment on above: Performed By: #### C BC ####[facility] Zlthohhfqy[address] [place] [address]Dr. Emelina Navarro WBC 13.3 103/ul Critically high 4.0-11.0 [facility] Comment on above: Performed By: #### C BC ####[facility] Bhytdvhcay[address] [place] [address]Dr. Emelina Navarro CULTURE URINEon 01-08-2023 CULTURE URINE Culture Observations : LIGHT GROWTH OF MIXED SKIN CEDRIC. NO POTENTIAL PATHOGENS SEEN. Normal [facility] Comment on above: Performed By: #### U RCX ####[facility] Edumumhzph[address] [place] [address]Dr. Emelina Navarro ECHOCARDIO M/2D COMPLETEon 0 01-08-2023 ECHOCARDIO M/2D COMPLETE Normal [facility] PROCALCITONINon 01-08-2023 Procalcitonin 0.10 ng/mL Critically high 0.00-0.08 [facility] Comment on above: Result Comment: .A [...] are obtained. Performed By: #### P CTLC ####[facility] Yypqnbicpu[address] [place], [place] [address]Dr. Emelina Navarro PROF 14(COMP METB)on 023 Albumin [Mass/Vol] 3.3 g/dL Critically low 3.4-5.0 [facility] Comment on above: Performed By: #### C MP ####[facility] Ilzkkmjxvv043[address] [place], [place] [address]Dr. Emelina Navarro Albumin/Globulin [Mass ratio] 0.8 {ratio} Normal [facility] Comment on above: Performed By: #### C MP ####[facility] Pzyhuqpjqp[address] [place], [place] [address]Dr. Emelina Navarro ALP [Catalytic activity/Vol] 140 U/L Critically high 46-116 [facility] Comment on above: Performed By: #### C MP ####[facility] Asskwknvmm[address] [place], [place] [address]Dr. Emelina Navarro ALT [Catalytic activity/Vol] 22 U/L Normal 16-63 [facility] Comment on above: Performed By: #### C MP ####[facility] Iqtandmteq1763[address] [place], [place] [address]Dr. Emelina Navarro Anion gap [Moles/Vol] 13.1 mmol/L Normal [facility] Comment on above: Performed By: #### C MP ####[facility] Moobwfmcfu45[address] [place], [place] [address]Dr. Emelina Navarro AST [Catalytic activity/Vol] 21 U/L Normal 15-37 [facility] Comment on above: Performed By: #### C MP ####[facility] Jifsezmzix7819[address] [place], [place] [address]Dr. Emeilna Navarro Bilirubin [Mass/Vol] 1.3 mg/dL Critically high 0.2-1.0 [facility] Comment on above: Performed By: #### C MP ####[facility] Qvuatgxrtx8792[address] [place], [place] [address]Dr. Awildanitza Ramon Calcium [Mass/Vol] 9.1 mg/dL Normal 8.5-10.1 [facility] Comment on above: Performed By: #### C MP ####[facility] Yqhoqlmnzd[address] [place], [place] [address]Dr. Emelina Navarro Chloride [Moles/Vol] 95 mmol/L Critically low 98-107 [facility] Comment on above: Performed By: #### C MP ####[facility] Leydytjzkg0787[address] [place], [place] [address]Dr. Emelian Navarro CO2 [Moles/Vol] 30.4 mmol/L Normal 21.0-32.0 [facility] Comment on above: Performed By: #### C MP ####[facility] Yselhnwirh6[address] [place], [place] [address]Dr. Emelina Navarro Creatinine [Mass/Vol] 1.67 mg/dL Critically high 0.70-1.30 [facility] Comment on above: Performed By: #### C MP ####[facility] Tkzlmkzssm[address] [place], [place] [address]Dr. Emelina Navarro EGFR-AF [place]IZ[place] 50 mL/min/1.73m2 Critically low >=60 [facility] Comment on above: Performed By: #### C MP ####[facility] Msltynxacc34[address] [place], [place] [address]Dr. Emelina Navarro EGFR-NON AF CITIZEN [place] 41 mL/min/1.73m2 Critically low >=60 [facility] Comment on above: Performed By: #### C MP ####[facility] Ajwuffggda5[address] [place], [place] [address]Dr. Emelina Navarro Globulin (S) [Mass/Vol] 3.9 g/dL Normal [facility] Comment on above: Performed By: #### C MP ####[facility] Fhxojjxcqn4461[address] [place], [place] [address]Dr. Emelina Navarro Glucose [Mass/Vol] 198 mg/dL Critically high 74-106 [facility] Comment on above: Performed By: #### C MP ####[facility] Yyqdyszgca18[address] [place] [address]Dr. Emelina Navarro Potassium [Moles/Vol] 3.5 mmol/L Normal 3.5-5.1 [facility] Comment on above: Performed By: #### C MP ####[facility] Cmagnftbxv0513 [place] [address]Dr. Emelina Navarro Protein [Mass/Vol] 7.2 g/dL Normal 6.4-8.2 [facility] Comment on above: Performed By: #### C MP ####[facility] Pfwhfixejv6[address] [place], [place] [address]Dr. Emelina Navarro Sodium [Moles/Vol] 135 mmol/L Critically low 136-145 [facility] Comment on above: Performed By: #### C MP ####[facility] Izhkuqglen33[address] [place], [place] [address]Dr. Emelina Ramon Urea nitrogen [Mass/Vol] 42.0 mg/dL Critically high 7.0-18.0 [facility] Comment on above: Performed By: #### C MP ####[facility] Pkooyuooyb6[address] [place], [place] [address]Dr. Emelina Ramon Urea nitrogen/Creatinine [Mass ratio] 25.1 mg/mg Normal [facility] Comment on above: Performed By: #### C MP ####[facility] Anhazbgfzl50[address] [place], [place] [address]Dr. Emelina Ramon PROTIMEon 01-08-2023 INR Coag (PPP) [Relative time] 2.59 {INR} Normal [facility] Comment on above: Performed By: #### P T ####[facility] Clpbndtusg[address] [place], [place] [address]Dr. Awildanitza Ramon INR GUIDELINES SEE BELOW Normal [facility] Comment on above: Result Comment: WENDY RED INR: 2.0 - 3.0 CONDITIONS NOT LISTED BELOW 2.5 - 3.5 FOR PROSTHETIC HEART VALVE REPLACEMENT 2.5 - 3.5 RECURRENT THROMBOSIS Performed By: #### P T ####[facility] Snblcorpqx8424[address] [place], [place] [address]Dr. Emelina Navarro PT Coag (PPP) [Time] 26.0 s Critically high 9.0-11.6 [facility] Comment on above: Performed By: #### P T ####[facility] F[address]fflzmlef[address] [place], [place] [address]DrWesley Navarro CBC AUTO DIFFon 01-07-2023 BASO # 0.0 103/ul Normal 0.0-0.1 [facility] Comment on above: Performed By: #### C BC ####[facility] P[address]lduqij98[address] [place], [place] [address]DrWesley Navarro Basophils/100 WBC (Bld) 0.3 % Normal 0.2-2.0 [facility] Comment on above: Performed By: #### C BC ####[facility] Vlvrpynhri[address] [place], [place] [address]DrWesley Navarro EO # 0.3 103/ul Normal 0.0-0.7 [facility] Comment on above: Performed By: #### C BC ####[facility] Pedggnyomu[address] [place], [place] [address]DrWesley Navarro Eosinophils/100 WBC (Bld) 2.3 % Normal 0.9-7.0 [facility] Comment on above: Performed By: #### C BC ####[facility] Kkegxzsmje9[address] [place], [place] [address]DrWesley Navarro Erythrocyte distribution width (RBC) [Ratio] 17.8 % Critically high 11.0-15.0 [facility] Comment on above: Performed By: #### C BC ####[facility] Uqserxvtaq5[address] [place], [place] [address]DrWesley Navarro Hematocrit (Bld) [Volume fraction] 43.3 % Normal 42.0-54.0 [facility] Comment on above: Performed By: #### C BC ####[facility] Vafnaoximz34[address] [place], [place] [address]DrWesley Navarro Hemoglobin (Bld) [Mass/Vol] 13.6 g/dL Critically low 14.0-18.0 [facility] Comment on above: Performed By: #### C BC ####[facility] Vzkeceaotr[address] [place] [address]DrWesley Kaisernitza Navarro IG # 0.05 10e3/ul Critically high 0.00-0.[address] [facility] Comment on above: Performed By: #### C BC ####[facility] Tckxvkfzgc224[address] [place] [address]Dr. Emelina Navarro IG % 0.4 % Normal 0.0-0.5 [facility] Comment on above: Performed By: #### C BC ####[facility] Feqnlkbkvg3661[address] [place], [place] [address]DrWesley Navarro LYMPH # 1.8 103/ul Normal 1.2-3.8 [facility] Comment on above: Performed By: #### C BC ####[facility] Pwaerzfbwp343[address] [place], [place] [address]DrWesley Navarro Lymphocytes/100 WBC (Bld) 12.8 % Critically low 20.5-60.0 [facility] Comment on above: Performed By: #### C BC ####[facility] Enqipxbhka7186[address] [place], [place] [address]DrWesley Awildanitza Navarro MANUAL DIFF REQ NO Normal [facility] Comment on above: Performed By: #### C BC ####[facility] Beniamylhc19[address] [place] [address]DrWesley Awildanitza Navarro MCH (RBC) [Entitic mass] 28.4 pg Normal 25.9-34.0 [facility] Comment on above: Performed By: #### C BC ####[facility] Zzjgsmkglq4[address] [place], [place] [address]DrWesley Awildanitza Navarro MCHC (RBC) [Mass/Vol] 31.4 g/dL Normal 29.9-35.2 [facility] Comment on above: Performed By: #### C BC ####[facility] Mosquwncwh[address] [place], [place] [address]DrWesley Navarro MCV (RBC) [Entitic vol] 90.4 fL Normal 80.0-94.0 [facility] Comment on above: Performed By: #### C BC ####[facility] Frukageajv27[address] [place] [address]Dr. Awildanitza Navarro MONO # 0.9 103/ul Critically high 0.3-0.8 [facility] Comment on above: Performed By: #### C BC ####[facility] Xmcieihnpe6249 [place] [address]Dr. Emelina Navarro Monocytes/100 WBC (Bld) 6.8 % Normal 1.7-12.0 [facility] Comment on above: Performed By: #### C BC ####[facility] Gsdsrirgov0616[address] [place], [place] [address]Dr. Awildanitza Navarro NEUT # 10.7 103/ul Critically high 1.4-6.5 [facility] Comment on above: Performed By: #### C BC ####[facility] Hodmqnnpwt8667[address] [place], [place] [address]Dr. Emelina Navarro Neutrophils/100 WBC (Bld) 77.4 % Critically high 43.0-75.0 [facility] Comment on above: Performed By: #### C BC ####[facility] Hmmlzxxrtg034[address] [place] [address]Dr. Emelina Navarro Platelet mean volume (Bld) [Entitic vol] 11.5 fL Normal 9.5-13.5 [facility] Comment on above: Performed By: #### C BC ####[facility] Xenuxttunr6755 [place] [phone]. Emelina Navarro PLT 114 103/ul Critically low 150-[address] [facility] Comment on above: Performed By: #### C BC ####[facility] Bvnwxpwpwh6368 [place] [phone]. Emelina Navarro RBC 4.79 106/ul Normal 4.70-6.10 [facility] Comment on above: Performed By: #### C BC ####[facility] Edqkzrtuhj9004[address] [place], [place] [address]Dr. Emelina Navarro WBC 13.8 103/ul Critically high 4.0-11.0 [facility] Comment on above: Performed By: #### C BC ####[facility] Sixpaouqmx3158[address] [place], [place] [address]Dr. Emelina Navarro PROF 14(COMP METB)on 023 Albumin [Mass/Vol] 3.4 g/dL Normal 3.4-5.0 [facility] Comment on above: Performed By: #### C MP ####[facility] Antipghuub8[address] [place], [place] [address]Dr. Emelina Navarro Albumin/Globulin [Mass ratio] 0.9 {ratio} Normal [facility] Comment on above: Performed By: #### C MP ####[facility] Jaiaqyfakz60[address] [place], [place] [address]Dr. Emelina Navarro ALP [Catalytic activity/Vol] 130 U/L Critically high 46-116 [facility] Comment on above: Performed By: #### C MP ####[facility] Gzrdrbfsei7097[address] [place], [place] [address]Dr. Emelina Navarro ALT [Catalytic activity/Vol] 24 U/L Normal 16-63 [facility] Comment on above: Performed By: #### C MP ####[facility] Kayjhgqonp839[address] [place], [place] [address]Dr. Emelina Navarro Anion gap [Moles/Vol] 12.2 mmol/L Normal [facility] Comment on above: Performed By: #### C MP ####[facility] Ojoqnbgoje3066[address] [place], [place] [address]Dr. Emelina Navarro AST [Catalytic activity/Vol] 22 U/L Normal 15-37 [facility] Comment on above: Performed By: #### C MP ####[facility] Wdcbrptaxt737[address] [place], [place] [address]Dr. Emelina Navarro Bilirubin [Mass/Vol] 1.1 mg/dL Critically high 0.2-1.0 [facility] Comment on above: Performed By: #### C MP ####[facility] Fuqgqeptmj1186[address] [place], [place] [address]Dr. Emelina Navarro Calcium [Mass/Vol] 9.0 mg/dL Normal 8.5-10.1 [facility] Comment on above: Performed By: #### C MP ####[facility] Qdkcnwiyip1338[address] [place], [place] [address]Dr. Awildanitza Ramon Chloride [Moles/Vol] 99 mmol/L Normal 98-107 [facility] Comment on above: Performed By: #### C MP ####[facility] Nerwxgtvkt6136[address] [place], [place] [address]Dr. Emelina Navarro CO2 [Moles/Vol] 30.5 mmol/L Normal 21.0-32.0 [facility] Comment on above: Performed By: #### C MP ####[facility] Yoqwsvhgod080[address] [place], [place] [address]Dr. Emelina Navarro Creatinine [Mass/Vol] 1.58 mg/dL Critically high 0.70-1.30 [facility] Comment on above: Performed By: #### C MP ####[facility] Urkwwmgogw4872[address] [place], [place] [address]Dr. Emelina Navarro EGFR-AF [place]IZ[place] 53 mL/min/1.73m2 Critically low >=60 [facility] Comment on above: Performed By: #### C MP ####[facility] Ctjsougrbk3825[address] [place], [place] [address]Dr. Awildanitza Ramon EGFR-NON AF CITIZ[place] 44 mL/min/1.73m2 Critically low >=60 [facility] Comment on above: Performed By: #### C MP ####[facility] Bnjzdbmeiv1926[address] [place], [place] [address]Dr. Emelina Navarro Globulin (S) [Mass/Vol] 3.9 g/dL Normal [facility] Comment on above: Performed By: #### C MP ####[facility] Nqvoacoyco4349[address] [place], [place] [address]Dr. Emelina Navarro Glucose [Mass/Vol] 195 mg/dL Critically high 74-106 [facility] Comment on above: Performed By: #### C MP ####[facility] Uncrycthat1885[address] [place], [place] [address]Dr. Emelina Navarro Potassium [Moles/Vol] 3.7 mmol/L Normal 3.5-5.1 [facility] Comment on above: Performed By: #### C MP ####[facility] Zrpwtlzwlz6401[address] [place], [place] [address]Dr. Emelina Ramon Protein [Mass/Vol] 7.3 g/dL Normal 6.4-8.2 [facility] Comment on above: Performed By: #### C MP ####[facility] Vjikdfcrfg0845[address] [place], [place] [address]Dr. Emelina Navarro Sodium [Moles/Vol] 138 mmol/L Normal 136-145 [facility] Comment on above: Performed By: #### C MP ####[facility] Klgwunxhir2831[address] [place], [place] [address]Dr. Awildanitza Ramon Urea nitrogen [Mass/Vol] 36.0 mg/dL Critically high 7.0-18.0 [facility] Comment on above: Performed By: #### C MP ####[facility] Tmdsbopluj3272[address] [place], [place] [address]Dr. Emelina Navarro Urea nitrogen/Creatinine [Mass ratio] 22.8 mg/mg Normal [facility] Comment on above: Performed By: #### C MP ####[facility] Bprpyliwqd9566[address] [place], [place] [address]DrWesley Emelina Ramon CBC AUTO DIFFon 01-06-2023 BASO # 0.0 103/ul Normal 0.0-0.1 [facility] Comment on above: Performed By: #### C BC ####[facility] Rfxcieqxbc8[address] [place], [place] [address]Dr. Emelina Navarro Basophils/100 WBC (Bld) 0.3 % Normal 0.2-2.0 [facility] Comment on above: Performed By: #### C BC ####[facility] Wikojhqekl5707[address] [place], [place] [address]Dr. Emelina Navarro EO # 0.3 103/ul Normal 0.0-0.7 [facility] Comment on above: Performed By: #### C BC ####[facility] Lgygpzlzzh330[address] [place], [place] [address]Dr. Emelina Navarro Eosinophils/100 WBC (Bld) 2.2 % Normal 0.9-7.0 [facility] Comment on above: Performed By: #### C BC ####[facility] Vqaoigehhr[address] [place] [address]Dr. Emelina Navarro Erythrocyte distribution width (RBC) [Ratio] 17.9 % Critically high 11.0-15.0 [facility] Comment on above: Performed By: #### C BC ####[facility] Fuuhrfamgp3933[address] [place], [place] [address]Dr. Emelina Navarro Hematocrit (Bld) [Volume fraction] 40.9 % Critically low 42.0-54.0 [facility] Comment on above: Performed By: #### C BC ####[facility] Tkqoxcjjju0547[address] [place], [place] [address]Dr. Emelina Navarro Hemoglobin (Bld) [Mass/Vol] 12.9 g/dL Critically low 14.0-18.0 [facility] Comment on above: Performed By: #### C BC ####[facility] Hfirihfzhn3[address] [place], [place] [address]Dr. Emelina Navarro IG # 0.04 10e3/ul Critically high 0.00-0.[address] [facility] Comment on above: Performed By: #### C BC ####[facility] Betjbdskno[address] [place], [place] [address]Dr. Emelina Navarro IG % 0.3 % Normal 0.0-0.5 [facility] Comment on above: Performed By: #### C BC ####[facility] Jpmnatpebo[address] [place], [place] [address]Dr. Emelina Navarro LYMPH # 2.2 103/ul Normal 1.2-3.8 [facility] Comment on above: Performed By: #### C BC ####[facility] Umqezbhdqm068[address] [place], [place] [address]Dr. Emelina Navarro Lymphocytes/100 WBC (Bld) 17.3 % Critically low 20.5-60.0 [facility] Comment on above: Performed By: #### C BC ####[facility] Kzfpupqpvy[address] [place] [address]Dr. Awildanitza Navarro MANUAL DIFF REQ NO Normal [facility] Comment on above: Performed By: #### C BC ####[facility] Zvbchafcfx5064 [place] [address]Dr. Emelina Ramon MCH (RBC) [Entitic mass] 28.5 pg Normal 25.9-34.0 [facility] Comment on above: Performed By: #### C BC ####[facility] Pkfncpmxge3272 [place] [address]Dr. Emelina Ramon MCHC (RBC) [Mass/Vol] 31.5 g/dL Normal 29.9-35.2 [facility] Comment on above: Performed By: #### C BC ####[facility] Sqlrhdowzw7418 [place] [address]Dr. Awildanitza Navarro MCV (RBC) [Entitic vol] 90.3 fL Normal 80.0-94.0 [facility] Comment on above: Performed By: #### C BC ####[facility] Fddbqbvmpg[address] [place], [place] [address]Dr. Emelina Navarro MONO # 0.9 103/ul Critically high 0.3-0.8 [facility] Comment on above: Performed By: #### C BC ####[facility] Qmnycezdcw8540 [place] [address]Dr. Awildanitza Navarro Monocytes/100 WBC (Bld) 7.5 % Normal 1.7-12.0 [facility] Comment on above: Performed By: #### C BC ####[facility] Qveodpxgpw4870 [place] [address]Dr. Emelina Navarro NEUT # 9.1 103/ul Critically high 1.4-6.5 [facility] Comment on above: Performed By: #### C BC ####[facility] Rewunmtavh6[address] [place], [place] [address]Dr. Emelina Navarro Neutrophils/100 WBC (Bld) 72.4 % Normal 43.0-75.0 [facility] Comment on above: Performed By: #### C BC ####[facility] Adbrchtgvq0029 [place] [phone]. Awildanitza Ramon Platelet mean volume (Bld) [Entitic vol] 11.3 fL Normal 9.5-13.5 [facility] Comment on above: Performed By: #### C BC ####[facility] Xudrjmpyaz8610 [place] [phone]. Awildanitza Ramon PLT 119 103/ul Critically low 150-450 [facility] Comment on above: Performed By: #### C BC ####[facility] Ocyuqkvxwc5426 [place] [phone]. Emelina Navarro RBC 4.53 106/ul Critically low 4.70-6.10 [facility] Comment on above: Performed By: #### C BC ####[facility] Kzvvqppzza3450 [place] [phone]. Emelina Navarro WBC 12.6 103/ul Critically high 4.0-11.0 [facility] Comment on above: Performed By: #### C BC ####[facility] Swwhpcfmfc8405 [place] [address]Dr. Emelina Navarro PROF 14(COMP METB)on 023 Albumin [Mass/Vol] 3.1 g/dL Critically low 3.4-5.0 [facility] Comment on above: Performed By: #### C MP ####[facility] Yzgugydzum9442 [place] [phone]. Emelina Navarro Albumin/Globulin [Mass ratio] 1.0 {ratio} Normal [facility] Comment on above: Performed By: #### C MP ####[facility] Omykbrttza9968 [place] [phone]. Emelina Navarro ALP [Catalytic activity/Vol] 114 U/L Normal 46-116 [facility] Comment on above: Performed By: #### C MP ####[facility] Mtdtxldwer6652 [place] [phone]. Emelina Navarro ALT [Catalytic activity/Vol] 23 U/L Normal 16-63 [facility] Comment on above: Performed By: #### C MP ####[facility] Qxcbqpmcbe7684 [place] [phone]. Emelina Navarro Anion gap [Moles/Vol] 13.5 mmol/L Normal [facility] Comment on above: Performed By: #### C MP ####[facility] Kyalvpxgba6740 [place] [address]Dr. Emelina Navarro AST [Catalytic activity/Vol] 24 U/L Normal 15-37 [facility] Comment on above: Performed By: #### C MP ####[facility] Rugjrinnkz2223 [place] [address]Dr. Emelina Navarro Bilirubin [Mass/Vol] 1.0 mg/dL Normal 0.2-1.0 [facility] Comment on above: Performed By: #### C MP ####[facility] Rpcemhbiag3[address] [place], [place] [address]Dr. Emelina Navarro Calcium [Mass/Vol] 8.5 mg/dL Normal 8.5-10.1 [facility] Comment on above: Performed By: #### C MP ####[facility] Kshqkyhfgd4[address] [place], [place] [address]Dr. Emelina Navarro Chloride [Moles/Vol] 102 mmol/L Normal 98-107 [facility] Comment on above: Performed By: #### C MP ####[facility] Wmvrlnulzv86[address] [place], [place] [address]Dr. Emelina Navarro CO2 [Moles/Vol] 28.2 mmol/L Normal 21.0-32.0 [facility] Comment on above: Performed By: #### C MP ####[facility] Umdgvmavtw8[address] [place], [place] [address]Dr. Emelina Navarro Creatinine [Mass/Vol] 1.42 mg/dL Critically high 0.70-1.30 [facility] Comment on above: Performed By: #### C MP ####[facility] Rkgitnhhjl[address] [place], [place] [address]Dr. Emelina Ramon EGFR-AF [place]IZ[place] 60 mL/min/1.73m2 Normal >=60 [facility] Comment on above: Performed By: #### C MP ####[facility] Dfrruvlhjl1531 [place] [phone]. Emelina Navarro EGFR-NON AF [place]IZ[place] 50 mL/min/1.73m2 Critically low >=60 [facility] Comment on above: Performed By: #### C MP ####[facility] Jdnljrcwwv3016 [place] [phone]. Emelina Navarro Globulin (S) [Mass/Vol] 3.1 g/dL Normal [facility] Comment on above: Performed By: #### C MP ####[facility] Tmhkiplhny0243 [place] [phone]. Emelina Navarro Glucose [Mass/Vol] 121 mg/dL Critically high 74-106 [facility] Comment on above: Performed By: #### C MP ####[facility] Mrlbhegecr6273 [place] [phone]. Emelina Navarro Potassium [Moles/Vol] 3.7 mmol/L Normal 3.5-5.1 [facility] Comment on above: Performed By: #### C MP ####[facility] Mghmuyqdpf2362 [place] [phone]. Emelina Navarro Protein [Mass/Vol] 6.2 g/dL Critically low 6.4-8.2 [facility] Comment on above: Performed By: #### C MP ####[facility] Zokueczygg3109 [place] [phone]. Emelina Navarro Sodium [Moles/Vol] 140 mmol/L Normal 136-145 [facility] Comment on above: Performed By: #### C MP ####[facility] Tptxaeeman5637 [place] [phone]. Emelina Navarro Urea nitrogen [Mass/Vol] 33.0 mg/dL Critically high 7.0-18.0 [facility] Comment on above: Performed By: #### C MP ####[facility] Njtpsftwtk1052 [place] [phone]. Emelina Navarro Urea nitrogen/Creatinine [Mass ratio] 23.2 mg/mg Normal [facility] Comment on above: Performed By: #### C MP ####[facility] Gswkfjkdpa4360 [place] [address]Dr. Emelina Navarro BNPon 01-05-2023 Natriuretic peptide B (Bld) [Mass/Vol] 7350.0 pg/mL Critically high <=900.0 [facility] Comment on above: Performed By: #### B OBSERVATION NURSE, BMP, HSTROPN ####[facility] Oucjysmheo4[address] [place], [place] [address]Dr. Emelina Ramon CBC AUTO DIFFon 01-05-2023 BASO # 0.0 103/ul Normal 0.0-0.1 [facility] Comment on above: Performed By: #### C BC ####[facility] Oyxisxkaau5633[address] [place], [place] [address]Dr. Emelina Navarro Basophils/100 WBC (Bld) 0.3 % Normal 0.2-2.0 [facility] Comment on above: Performed By: #### C BC ####[facility] Bjtybkxdyp7818[address] [place], [place] [address]Dr. Emelina Navarro EO # 0.3 103/ul Normal 0.0-0.7 [facility] Comment on above: Performed By: #### C BC ####[facility] Ptddjyzfrq4601[address] [place], [place] [address]Dr. Emelina Navarro Eosinophils/100 WBC (Bld) 1.9 % Normal 0.9-7.0 [facility] Comment on above: Performed By: #### C BC ####[facility] Jmxnsmmolk7674[address] [place], [place] [address]Dr. Emelina Navarro Erythrocyte distribution width (RBC) [Ratio] 17.7 % Critically high 11.0-15.0 [facility] Comment on above: Performed By: #### C BC ####[facility] Kmczotnevq[address] [place], [place] [address]Dr. Emelina Navarro Hematocrit (Bld) [Volume fraction] 42.9 % Normal 42.0-54.0 [facility] Comment on above: Performed By: #### C BC ####[facility] Pknzdobnvp5[address] [place], [place] [address]Dr. Emelina Navarro Hemoglobin (Bld) [Mass/Vol] 13.8 g/dL Critically low 14.0-18.0 [facility] Comment on above: Performed By: #### C BC ####[facility] Axbswxnrko4832 [place] [address]DrWesley Navarro IG # 0.07 10e3/ul Critically high 0.00-0.[address] [facility] Comment on above: Performed By: #### C BC ####[facility] Wexmgacuud5229 [place] [address]DrWesley Navarro IG % 0.4 % Normal 0.0-0.5 [facility] Comment on above: Performed By: #### C BC ####[facility] Zrjzbyyxsi[address] [place], [place] [address]DrWesley Navarro LYMPH # 1.8 103/ul Normal 1.2-3.8 [facility] Comment on above: Performed By: #### C BC ####[facility] Swwpdazqmr[address] [place], [place] [address]DrWesley Navarro Lymphocytes/100 WBC (Bld) 11.6 % Critically low 20.5-60.0 [facility] Comment on above: Performed By: #### C BC ####[facility] Npnmdnnetb[address] [place], [place] [address]DrWesley Navarro MANUAL DIFF REQ NO Normal [facility] Comment on above: Performed By: #### C BC ####[facility] Qbxqsxjkmt0850 [place] [address]DrWesley Navarro MCH (RBC) [Entitic mass] 28.5 pg Normal 25.9-34.0 [facility] Comment on above: Performed By: #### C BC ####[facility] Ofmgtwud[address] [place] [address]DrWesley Navarro MCHC (RBC) [Mass/Vol] 32.2 g/dL Normal 29.9-35.2 [facility] Comment on above: Performed By: #### C BC ####[facility] [address] [place], [place] [address]DrWesley Navarro MCV (RBC) [Entitic vol] 88.5 fL Normal 80.0-94.0 [facility] Comment on above: Performed By: #### C BC ####[facility] Weaprtfchp[address] [place] [phone] Navarro MONO # 1.1 103/ul Critically high 0.3-0.8 [facility] Comment on above: Performed By: #### C BC ####[facility] Yqexcmbytl4476 [place] [phone] Navarro Monocytes/100 WBC (Bld) 6.9 % Normal 1.7-12.0 [facility] Comment on above: Performed By: #### C BC ####[facility] Fisoyrtkzb[address] [place] [address]Dr. Emelina Navarro NEUT # 12.4 103/ul Critically high 1.4-6.5 [facility] Comment on above: Performed By: #### C BC ####[facility] Ncyk[address]gxue[address] [place] [address]Dr. Emelina Navarro Neutrophils/100 WBC (Bld) 78.9 % Critically high 43.0-75.0 [facility] Comment on above: Performed By: #### C BC ####[facility] Sowpianbfi50[address] [place] [phone] Navarro Platelet mean volume (Bld) [Entitic vol] 11.5 fL Normal 9.5-13.5 [facility] Comment on above: Performed By: #### C BC ####[facility] Bbxbtzrsae[address] [place] [phone] Navarro PLT 142 103/ul Critically low 150-[address] [facility] Comment on above: Performed By: #### C BC ####[facility] Wpaajcssnh4[address] [place] [phone] Navarro RBC 4.85 106/ul Normal 4.70-6.10 [facility] Comment on above: Performed By: #### C BC ####[facility] Xcmfvnvdkm1584 [place] [phone] Navarro WBC 15.8 103/ul Critically high 4.0-11.0 [facility] Comment on above: Performed By: #### C BC ####[facility] Fwxdujsvan[address] [place] [address]Dr. Emelina Navarro CULTURE BLOODon 01-05-2023 Microscopic examination of blood, culture Culture Observations: NO GROWTH AT 5 DAYS. Normal The [facility] Comment on above: Performed By: #### B LDCX2 ####[facility] Jibkhmmtwo[address] [place] [address]Dr. Emelina Navarro Microscopic examination of blood, culture Culture Observations: NO GROWTH AT 5 DAYS. Normal The [facility] Comment on above: Performed By: #### B LDCX1 ####[facility] Bazhrnpwqr[address] [place] [address]Dr. Emelina Navarro Covid-19 PCR (CVDTB)on 12-20 SARS-CoV-2 (COVID-19) RNA RADHA+probe Ql (Unsp spec) Not detected Normal NOT DETECTED The [facility] Comment on above: Result Comment: [...] for this test is supported by the [employer] Manager of Health and Human Service's declaration that [...] be used). Performed By: #### C VDTBH ####[facility] Jixrnggaoq3174 [place], [place] [address]Mr. Emelina Navarro DIGOXINon 01-05-2023 DIG 0.8 ng/mL Critically low 0.9-2.0 [facility] Comment on above: Performed By: #### D IG ####[facility] Sfwmlwjpoe4303 [place] [address]Dr. Awildanitza Ramon PROF CHEM 8 (BAS METB)on Anion gap [Moles/Vol] 12.7 mmol/L Normal Th e [facility] Comment on above: Performed By: #### B OBSERVATION NURSE, BMP, HSTROPN ####[facility] Lfgtzqnxgn[address] [place], [place] [address]Dr. Emelina Navarro Calcium [Mass/Vol] 8.8 mg/dL Normal 8.5-10.1 [facility] Comment on above: Performed By: #### B OBSERVATION NURSE, BMP, HSTROPN ####[facility] Muvicpaocg[address] [place], [place] [address]Dr. Emelina Navarro Chloride [Moles/Vol] 99 mmol/L Normal 98-107 [facility] Comment on above: Performed By: #### B OBSERVATION NURSE, BMP, HSTROPN ####[facility] Sksvayngef[address] [place], [place] [address]Dr. Emelina Navarro CO2 [Moles/Vol] 28.2 mmol/L Normal 21.0-32.0 [facility] Comment on above: Performed By: #### B OBSERVATION NURSE, BMP, HSTROPN ####[facility] Zfdvcrnokb58[address] [place] [address]Dr. Emelina Navarro Creatinine [Mass/Vol] 1.64 mg/dL Critically high 0.70-1.30 [facility] Comment on above: Performed By: #### B OBSERVATION NURSE, BMP, HSTROPN ####[facility] Flvekymvxx[address] [place], [place] [address]Dr. Emelina Navarro EGFR-AF CITIZEN OF [place] 51 mL/min/1.73m2 Critically low >=60 [facility] Comment on above: Performed By: #### B OBSERVATION NURSE, BMP, HSTROPN ####[facility] Ilwgaollyg59[address] [place] [address]Dr. Emelina Navarro EGFR-NON AF CITIZEN [place] 42 mL/min/1.73m2 Critically low >=60 [facility] Comment on above: Performed By: #### B OBSERVATION NURSE, BMP, HSTROPN ####[facility] Filpnmenzm9238 [place] [address]Dr. Emelina Navarro Glucose [Mass/Vol] 203 mg/dL Critically high 74-106 [facility] Comment on above: Performed By: #### B OBSERVATION NURSE, BMP, HSTROPN ####[facility] Cxixecgjhl5334 [place] [address]Dr. Awildanitza Navarro Potassium [Moles/Vol] 3.9 mmol/L Normal 3.5-5.1 [facility] Comment on above: Performed By: #### B OBSERVATION NURSE, BMP, HSTROPN ####[facility] Fefdwiwojq[address] [place], [place] [address]Dr. Emelina Navarro Sodium [Moles/Vol] 136 mmol/L Normal 136-145 [facility] Comment on above: Performed By: #### B OBSERVATION NURSE, BMP, HSTROPN ####[facility] Jkpalskcih[address] [place], [place] [address]Dr. Awildanitza Navarro Urea nitrogen [Mass/Vol] 32.0 mg/dL Critically high 7.0-18.0 [facility] Comment on above: Performed By: #### B OBSERVATION NURSE, BMP, HSTROPN ####[facility] Noydlxnqvc[address] [place], [place] [address]Dr. Awildanitza Navarro Urea nitrogen/Creatinine [Mass ratio] 19.5 mg/mg Normal [facility] Comment on above: Performed By: #### B OBSERVATION NURSE, BMP, HSTROPN ####[facility] Kzgiqlz[address] [place], [place] [address]Dr. Emelina Navarro PROTIMEon 01-05-2023 INR Coag (PPP) [Relative time] 2.53 {INR} Normal [facility] Comment on above: Performed By: #### P T, PTT ####[facility] Ajsdcwydsg[address] [place], [place] [address]Dr. Emelina Navarro INR GUIDELINES SEE BELOW Normal [facility] Comment on above: Result Comment: WENDY RED INR: 2.0 - 3.0 CONDITIONS NOT LISTED BELOW 2.5 - 3.5 FOR PROSTHETIC HEART VALVE REPLACEMENT 2.5 - 3.5 RECURRENT THROMBOSIS Performed By: #### P T, PTT ####[facility] Ijvfdzgxzc[address] [place] [address]Dr. Emelina Navarro PT Coag (PPP) [Time] 25.4 s Critically high 9.0-11.6 [facility] Comment on above: Performed By: #### P T, PTT ####[facility] Edhlwnijcq[address] [place], [place] [address]Dr. Emelina Navarro PTTon 01-05-2023 aPTT Coag (Bld) [Time] 37.7 s Critically high 22.3-36. 2 [facility] Comment on above: Performed By: #### P T, PTT ####[facility] Tcghghqzlr[address] [place], [place] [address]Dr. Emelina Navarro TROPONIN, HIGH SENSITIVITYon 01-05-2023 HSTROP 52.4 pg/mL Normal 4.0-76.1 [facility] Comment on above: Result Comment: CUT- OFF POINTS HAVE BEEN ESTABLISHED BASED ON THE FOURTH UNIVERSAL DEFINITIONS OF MYOCARDIALINFARCTION. THE UPPER REFERENCE LIMIT (URL) OF TROPONIN, DEFINED THE 99TH PERCENTILE OFcTnI DISTRIBUTION IN A REFERENCE POPULATION, HAS BEEN CONFIRMED THE DECISION THRESHOLDFOR [place] DIAGNOSIS. Performed By: #### B OBSERVATION NURSE, BMP, HSTROPN ####[facility] P[address]fbq[address] [place], [place] [address]Dr. Emelina Navarro XR CHEST 1 Von 01-05-2023 XR CHEST 1 V Normal [facility] BNPon 01-02-2023 Natriuretic peptide B (Bld) [Mass/Vol] 5653.0 pg/mL Critically high <=900.0 [facility] Comment on above: Performed By: #### B OBSERVATION NURSE, BMP ####[facility] Wyvuetswwd[address] [place], [place] [address]Dr. Emelina Navarro CBC AUTO DIFFon 01-02-2023 BASO # 0.0 103/ul Normal 0.0-0.1 [facility] Comment on above: Performed By: #### C BC ####[facility] Conuvdfgax[address] [place], [place] [address]Dr. Emelina Navarro Basophils/100 WBC (Bld) 0.2 % Normal 0.2-2.0 [facility] Comment on above: Performed By: #### C BC ####[facility] Naijmtqnbo[address] [place] [address]Dr. Emelina Navarro EO # 0.3 103/ul Normal 0.0-0.7 [facility] Comment on above: Performed By: #### C BC ####[facility] Scbhcecqgk[address] [place], [place] [address]Dr. Emelina Navarro Eosinophils/100 WBC (Bld) 2.1 % Normal 0.9-7.0 [facility] Comment on above: Performed By: #### C BC ####[facility] Dlzadiedeo[address] [place], [place] [address]Dr. Emelina Navarro Erythrocyte distribution width (RBC) [Ratio] 17.9 % Critically high 11.0-15.0 [facility] Comment on above: Performed By: #### C BC ####[facility] Rwkzwgmeqz[address] [place], [place] [address]Dr. Emelina Navarro Hematocrit (Bld) [Volume fraction] 42.1 % Normal 42.0-54.0 [facility] Comment on above: Performed By: #### C BC ####[facility] Jrjjvqeolx06[address] [place], [place] [address]Dr. Emelina Navarro Hemoglobin (Bld) [Mass/Vol] 13.8 g/dL Critically low 14.0-18.0 [facility] Comment on above: Performed By: #### C BC ####[facility] Gglygggjqg[address] [place], [place] [address]Dr. Emelina Navarro IG # 0.06 10e3/ul Critically high 0.00-0.[address] [facility] Comment on above: Performed By: #### C BC ####[facility] Farcskargh[address] [place], [place] [address]Dr. Emelina Navarro IG % 0.5 % Normal 0.0-0.5 [facility] Comment on above: Performed By: #### C BC ####[facility] Qxmannnzge5594 [place] [phone]. Emelina Ramon LYMPH # 1.7 103/ul Normal 1.2-3.8 [facility] Comment on above: Performed By: #### C BC ####[facility] Xmmgnoeifj8209 [place] [phone]. Emelina Ramon Lymphocytes/100 WBC (Bld) 13.1 % Critically low 20.5-60.0 [facility] Comment on above: Performed By: #### C BC ####[facility] Oksixkutid[address] [place] [address]Dr. Awildanitza Navarro MANUAL DIFF REQ NO Normal [facility] Comment on above: Performed By: #### C BC ####[facility] Fxkleynkvw[address] [place] [address]Dr. Emelina Ramon MCH (RBC) [Entitic mass] 28.9 pg Normal 25.9-34.0 [facility] Comment on above: Performed By: #### C BC ####[facility] Aetovlefcl[address] [place] [address]Dr. Emelina Ramon MCHC (RBC) [Mass/Vol] 32.8 g/dL Normal 29.9-35.2 [facility] Comment on above: Performed By: #### C BC ####[facility] Titnpphdqz[address] [place] [address]Dr. Emelina Navarro MCV (RBC) [Entitic vol] 88.3 fL Normal 80.0-94.0 [facility] Comment on above: Performed By: #### C BC ####[facility] Qhlizlvvin[address] [place] [address]Dr. Emelina Navarro MONO # 0.7 103/ul Normal 0.3-0.8 [facility] Comment on above: Performed By: #### C BC ####[facility] Obkpwrbcyw1641 [place] [address]Dr. Emelina Navarro Monocytes/100 WBC (Bld) 5.3 % Normal 1.7-12.0 [facility] Comment on above: Performed By: #### C BC ####[facility] Znlplvjhzg7737 [place] [phone]. Emelina Navarro NEUT # 10.1 103/ul Critically high 1.4-6.5 [facility] Comment on above: Performed By: #### C BC ####[facility] Jhqqoeshbx2133 [place] [phone]. Emelina Navarro Neutrophils/100 WBC (Bld) 78.8 % Critically high 43.0-75.0 [facility] Comment on above: Performed By: #### C BC ####[facility] Oqazpvqtje[address] [place] [address]Dr. Emelina Navarro Platelet mean volume (Bld) [Entitic vol] 10.8 fL Normal 9.5-13.5 [facility] Comment on above: Performed By: #### C BC ####[facility] Buxkvyzbfk9261 [place] [phone]. Emelina Navarro PLT 143 103/ul Critically low 150-450 [facility] Comment on above: Performed By: #### C BC ####[facility] Dwdiipgohz0079 [place] [phone]. Awildanitza Navarro RBC 4.77 106/ul Normal 4.70-6.10 [facility] Comment on above: Performed By: #### C BC ####[facility] Dlignxmbyz0344 [place] [phone]. Emelina Ramon WBC 12.8 103/ul Critically high 4.0-11.0 [facility] Comment on above: Performed By: #### C BC ####[facility] Lrsqvtwwhb9496 [place] [phone] Navarro PROF CHEM 8 (BAS METB)on Anion gap [Moles/Vol] 12.2 mmol/L Normal [facility] Comment on above: Performed By: #### B OBSERVATION NURSE, BMP ####[facility] Fpaiamofsm3670 [place] [phone] Navarro Calcium [Mass/Vol] 8.6 mg/dL Normal 8.5-10.1 [facility] Comment on above: Performed By: #### B OBSERVATION NURSE, BMP ####[facility] Ltialkgxyj8630 [place] [phone]. Emelina Navarro Chloride [Moles/Vol] 102 mmol/L Normal 98-107 [facility] Comment on above: Performed By: #### B OBSERVATION NURSE, BMP ####[facility] Wktllmqtwp6613 [place] [address]Dr. Emelina Navarro CO2 [Moles/Vol] 26.4 mmol/L Normal 21.0-32.0 [facility] Comment on above: Performed By: #### B OBSERVATION NURSE, BMP ####[facility] Qsftkyvokm7002 [place] [address]Dr. Emelina Navarro Creatinine [Mass/Vol] 1.56 mg/dL Critically high 0.70-1.30 [facility] Comment on above: Performed By: #### B OBSERVATION NURSE, BMP ####[facility] T[address]zalnjyqo[address] [place], [place] [address]Dr. Emelina Navarro EGFR-AF [place]IZ[place] 54 mL/min/1.73m2 Critically low >=60 [facility] Comment on above: Performed By: #### B OBSERVATION NURSE, BMP ####[facility] Krryvdfezl[address] [place], [place] [address]Dr. Emelina Navarro EGFR-NON AF [place]IZ[place] 44 mL/min/1.73m2 Critically low >=60 [facility] Comment on above: Performed By: #### B OBSERVATION NURSE, BMP ####[facility] Hpxmbpzgpy[address] [place], [place] [address]Dr. Emelina Navarro Glucose [Mass/Vol] 211 mg/dL Critically high 74-106 [facility] Comment on above: Performed By: #### B OBSERVATION NURSE, BMP ####[facility] Erxjtlelip[address] [place], [place] [address]Dr. Emelina Navarro Potassium [Moles/Vol] 3.6 mmol/L Normal 3.5-5.1 [facility] Comment on above: Performed By: #### B OBSERVATION NURSE, BMP ####[facility] Qnsensmfsj[address] [place], [place] [address]Dr. Emelina Navarro Sodium [Moles/Vol] 137 mmol/L Normal 136-145 [facility] Comment on above: Performed By: #### B OBSERVATION NURSE, BMP ####[facility] Qutpthitro2105 [place] [phone]. Awildanitza Ramon Urea nitrogen [Mass/Vol] 42.0 mg/dL Critically high 7.0-18.0 [facility] Comment on above: Performed By: #### B OBSERVATION NURSE, BMP ####[facility] Gtjtjslmuy7329 [place] [phone]. Emelina Navarro Urea nitrogen/Creatinine [Mass ratio] 26.9 mg/mg Normal [facility] Comment on above: Performed By: #### B OBSERVATION NURSE, BMP ####[facility] Xnejulwnoo5983 [place] [phone]. Emelina Navarro Anion gap [Moles/Vol] 12.3 mmol/L Normal [facility] Comment on above: Performed By: #### B MP ####[facility] Exvswfkdqy0981 [place] [address]Dr. Emelina Navarro Calcium [Mass/Vol] 8.4 mg/dL Critically low 8.5-10.1 [facility] Comment on above: Performed By: #### B MP ####[facility] Wmgfbdeyhm4201 [place] [address]Dr. Emelina Navarro Chloride [Moles/Vol] 101 mmol/L Normal 98-107 [facility] Comment on above: Performed By: #### B MP ####[facility] Ursagikntr9488 [place] [address]Dr. Emelina Navarro CO2 [Moles/Vol] 27.4 mmol/L Normal 21.0-32.0 [facility] Comment on above: Performed By: #### B MP ####[facility] Sr[address]ad[address] [place], [place] [id number]. Emelina Navarro Creatinine [Mass/Vol] 1.54 mg/dL Critically high 0.70-1.30 [facility] Comment on above: Performed By: #### B MP ####[facility] Xsxqdymorf8604 [place] [phone]. Emelina Navarro EGFR-AF [place]IZ[place] 55 mL/min/1.73m2 Critically low >=60 [facility] Comment on above: Performed By: #### B MP ####[facility] Vrjtujvxil1737 [place] [address]Dr. Emelina Navarro EGFR-NON AF [place]IZ[place] 45 mL/min/1.73m2 Critically low >=60 [facility] Comment on above: Performed By: #### B MP ####[facility] Qtvelrdrck9200 [place] [address]Dr. Awildanitza Navarro Glucose [Mass/Vol] 115 mg/dL Critically high 74-106 [facility] Comment on above: Performed By: #### B MP ####[facility] Dcoyflcjso5654 [place] [address]Dr. Awildanitza Navarro Potassium [Moles/Vol] 3.7 mmol/L Normal 3.5-5.1 [facility] Comment on above: Performed By: #### B MP ####[facility] Nksuzexfvz[address] [place], [place] [address]Dr. Emelina Navarro Sodium [Moles/Vol] 137 mmol/L Normal 136-145 [facility] Comment on above: Performed By: #### B MP ####[facility] Xqwcatpqsh[address] [place], [place] [address]Dr. Emelina Ramon Urea nitrogen [Mass/Vol] 40.0 mg/dL Critically high 7.0-18.0 [facility] Comment on above: Performed By: #### B MP ####[facility] Aisnzxrflt[address] [place], [place] [address]Dr. Emelina Navarro Urea nitrogen/Creatinine [Mass ratio] 26.0 mg/mg Normal [facility] Comment on above: Performed By: #### B MP ####[facility] Iqfnsnzwwh[address] [place], [place] [address]Dr. Awildanitza Ramon XR CHEST 1 Von 01-02-2023 XR CHEST 1 V Normal [facility] BNPon 12-26-2022 Natriuretic peptide B (Bld) [Mass/Vol] 9102.0 pg/mL Critically high <=900.0 [facility] Comment on above: Performed By: #### B OBSERVATION NURSE ####[facility] Pepiakxeif[address] [place] [address]Dr. Emelina Navarro PROF CHEM 8 (BAS METB)on Anion gap [Moles/Vol] 14.4 mmol/L Normal [facility] Comment on above: Performed By: #### B MP ####[facility] Zhjezmllez8066 [place] [address]Dr. Emelina Navarro Calcium [Mass/Vol] 8.6 mg/dL Normal 8.5-10.1 [facility] Comment on above: Performed By: #### B MP ####[facility] Wtwkdvjkuq6674 [place] [address]Dr. Emelina Navarro Chloride [Moles/Vol] 101 mmol/L Normal 98-107 [facility] Comment on above: Performed By: #### B MP ####[facility] Npsdvyjvuh[address] [place], [place] [address]Dr. Emelina Navarro CO2 [Moles/Vol] 27.2 mmol/L Normal 21.0-32.0 [facility] Comment on above: Performed By: #### B MP ####[facility] Yrkdvgzbvl[address] [place], [place] [address]Dr. Emelina Navarro Creatinine [Mass/Vol] 1.69 mg/dL Critically high 0.70-1.30 [facility] Comment on above: Performed By: #### B MP ####[facility] Ubq[address]ueprk[address] [place], [place] [address]Dr. Emelina Navarro EGFR-AF [place]IZ[place] 49 mL/min/1.73m2 Critically low >=60 [facility] Comment on above: Performed By: #### B MP ####[facility] Qfoixjboqi1034 [place] [address]Dr. Emelina Navarro EGFR-NON AF [place]IZ[place] 41 mL/min/1.73m2 Critically low >=60 [facility] Comment on above: Performed By: #### B MP ####[facility] Ioogrzyfnb[address] [place], [place] [address]Dr. Emelina Navarro Glucose [Mass/Vol] 163 mg/dL Critically high 74-106 [facility] Comment on above: Performed By: #### B MP ####[facility] Fjjkeyeqhs0610 [place], [place] [address]St. Emelina Navarro Potassium [Moles/Vol] 3.6 mmol/L Normal 3.5-5.1 [facility] Comment on above: Performed By: #### B MP ####[facility] Izknjbnojk5864 [place], [place] [address]Ti. Emelina Ramon Sodium [Moles/Vol] 139 mmol/L Normal 136-145 [facility] Comment on above: Performed By: #### B MP ####[facility] [address] [place], [place] [address]Xs. Emelina Navarro Urea nitrogen [Mass/Vol] 36.0 mg/dL Critically high 7.0-18.0 [facility] Comment on above: Performed By: #### B MP ####[facility] [address] [place] [id number]. Awildanitza Ramon Urea nitrogen/Creatinine [Mass ratio] 21.3 mg/mg Normal [facility] Comment on above: Performed By: #### B MP ####[facility] [address] [place] [id number]. Emelina Ramon Albumin [Mass/volume] in Ser um or PlasmaOrdered By: Ethan Cummings on 12-02-2022 Albumin [Mass/Vol] 3.9 g/dL 3.2-5.5 [facility] Basophils Auto (Bld) [#/Vol] Ordered By: Ethan Cummings on 12-02-2022 Basophils (Bld) [#/Vol] 0.1 10*3/uL 0.0-0.2 [facility] Basophils/100 WBC Auto (Bld) Ordered By: Ethan Cummings on 12-02-2022 Basophils/100 WBC (Bld) 0.7 % . F [facility] CT biopsyOrdered By: Ethan Cummings on 12-02-2022 Transferrin [Mass/Vol] 240 mg/dL 180-380 Fi [facility] Creatinine and Glomerular fi ltration rate.predicted panel (S/P/Bld)Ordered By: Ethan Cummings on 12-02-2022 Creatinine [Mass/Vol] 1.58 mg/dL 0.64-1.27 [facility] Eosinophils Auto (Bld) [#/Vo l]Ordered By: Ethan Cummings on 12-02-2022 Eosinophils (Bld) [#/Vol] 0.4 10*3/uL 0.0-0.45 [facility] Eosinophils/100 WBC Auto (Bl d)Ordered By: Ethan Cummings on 12-02-2022 Eosinophils/100 WBC (Bld) 3.5 % . [facility] Erythrocyte distribution wid th Auto (RBC) [Ratio]Ordered By: Ethan Cummings on 12-02-2022 Erythrocyte distribution width (RBC) [Ratio] 19.6 % 12.0-14.8 [facility] Estimated glomerular filtrat ion rate (GFR) non- AmericanOrdered By: Ethan Cummings on 12-02-2022 GFR/1.73 sq M.predicted among non-blacks MDRD (S/P/Bld) [Vol rate/Area] 44 mL/Min [facility] Ferritin [Mass/volume] in Se rum or PlasmaOrdered By: Ethan Cummings on 12-02-2022 Ferritin [Mass/Vol] 85.7 ng/mL 23.9-336.2 [facility] Folate [Mass/volume] in Seru m or PlasmaOrdered By: Ethan Cummings on 12-02-2022 Folate [Mass/Vol] ng/mL >5.9 [facility] Comment on above: Folate reference ran ge: >5.9 ng/mlThe WHO technical consultation on folate and vitamin [id number] has determined that folate concentrations lessthan 4 ng/ml are considered deficient. Globulin Calc (S) [Mass/Vol] Ordered By: Ethan Cummings on 12-02-2022 Globulin (S) [Mass/Vol] 3.7 g/dL [facility] Hematocrit Auto (Bld) [Volum e fraction]Ordered By: Ethan Cummings on 12-02-2022 Hematocrit (Bld) [Volume fraction] 47.4 % 38.8-50.0 [facility] Hemoglobin [Mass/volume] in BloodOrdered By: Ethan Cummings on 12-02-2022 Hemoglobin (Bld) [Mass/Vol] 15.3 g/dL 13.0-17.0 [facility] Iron [Mass/volume] in Serum or PlasmaOrdered By: Ethan Cummings on 12-02-2022 Iron [Mass/Vol] 96 ug/dL 40-160 [facility] Iron binding capacity [Mass/ volume] in Serum or PlasmaOrdered By: Ethan Cummings on 12-02-2022 Iron binding capacity [Mass/Vol] 336 ug/dL 255-450 [facility] Iron saturation [Mass Fracti on] in Serum or PlasmaOrdered By: Ethan Cummings on 12-02-2022 Iron saturation [Mass fraction] 28.6 % 20-50 [facility] Laboratory - Chemistry and C hemistry - challengeOrdered By: Ethan Cummings on 12-02-2022 Cobalamin (Vitamin B12) [Mass/Vol] 1521 pg/mL 180-914 [facility] Leukocytes [#/volume] correc morris for nucleated erythrocytes in Blood by Automated counOrdered By: Ethan Cummings on 12-02-2022 WBC corrected for nucl RBC Auto (Bld) [#/Vol] 11.8 10*3/uL 4.1-10.5 [facility] Lymphocytes Auto (Bld) [#/Vo l]Ordered By: Ethan Cummings on 12-02-2022 Lymphocytes (Bld) [#/Vol] 2.4 10*3/uL 1.00-4.8 [facility] Lymphocytes/100 WBC Auto (Bl d)Ordered By: Ethan Cummings on 12-02-2022 Lymphocytes/100 WBC (Bld) 20.5 % . [facility] MCH Auto (RBC) [Entitic mass ]Ordered By: Ethan Cummings on 12-02-2022 MCH (RBC) [Entitic mass] 28.3 pg 27.5-35.2 [facility] MCHC Auto (RBC) [Mass/Vol]Or dered By: Ethan Cummings on 12-02-2022 MCHC (RBC) [Mass/Vol] 32.3 g/dL 32.5-35.6 [facility] MCV Auto (RBC) [Entitic vol] Ordered By: Ethan Cummings on 12-02-2022 MCV (RBC) [Entitic vol] 87.5 fL 83.5-101 [facility] Monocytes Auto (Bld) [#/Vol] Ordered By: Ethan Cummings on 12-02-2022 Monocytes (Bld) [#/Vol] 1.0 10*3/uL 0.0-0.8 [facility] Monocytes/100 WBC Auto (Bld) Ordered By: Ethan Cummings on 12-02-2022 Monocytes/100 WBC (Bld) 8.2 % . [facility] Neutrophils Auto (Bld) [#/Vo l]Ordered By: Ethan Cummings on 12-02-2022 Neutrophils (Bld) [#/Vol] 7.9 10*3/uL 1.8-7.7 [facility] Neutrophils/100 WBC Auto (Bl d)Ordered By: Ethan Cummings on 12-02-2022 Neutrophils/100 WBC (Bld) 67.1 % . [facility] No Panel InformationOrdered By: Ethan Cummings on 12-02-2022 Estimated GFR () 53 mL/Min [facility] Comment on above: GFR estimated refere nce range: According to KDOQI guidelines, <60 ml/min/1.73m2 is sufficient to diagnose a patient with chronic kidney disease. Pharmacy Creatinine Clearance (Chem 53.88 [facility] Nucleated erythrocytes [Pres ence] in Blood by Automated countOrdered By: Ethan Cummings on 12-02-2022 Nucleated RBC Auto Ql (Bld) 0.1 /100{WBC} 0-0.5 [facility] Platelet mean volume Auto (B ld) [Entitic vol]Ordered By: Ethan Cummings on 12-02-2022 Platelet mean volume (Bld) [Entitic vol] 8.5 fL 6.6-10.1 [facility] Platelets Auto (Bld) [#/Vol] Ordered By: Ethan Cummings on 12-02-2022 Platelets (Bld) [#/Vol] 214 10*3/uL 150-450 [facility] Protein [Mass/volume] in Ser um or PlasmaOrdered By: Ethan Cummings on 12-02-2022 Protein [Mass/Vol] 7.6 g/dL 6.1-7.9 [facility] RBC Auto (Bld) [#/Vol]Ordere d By: Ethan Cummings on 12-02-2022 RBC (Bld) [#/Vol] 5.41 10*6/uL 3.90-5.60 [facility] Serum or plasma alanine valle otransferase measurement without P-5'-P (enzymatic activiOrdered By: Ethan Cummings on 12-02-2022 ALT No additional P-5'-P [Catalytic activity/Vol] 19 U/L 10-60 [facility] Serum or plasma albumin/glob ulin mass ratioOrdered By: Ethan Cummings on 12-02-2022 Albumin/Globulin [Mass ratio] 1.1 {ratio} [facility] Serum or plasma alkaline tosin sphatase measurement (enzymatic activity/volume)Ordered By: Ethan Cummings on 12-02-2022 ALP [Catalytic activity/Vol] 101 U/L 32-92 [facility] Serum or plasma anion gap de terminationOrdered By: Ethan Cummings on 12-02-2022 Anion gap [Moles/Vol] 13.2 mmol/L 6.0-15.0 [facility] Serum or plasma aspartate am inotransferase measurement (enzymatic activity/volume)Ordered By: Ethan Cummings on 12-02-2022 AST [Catalytic activity/Vol] 32 U/L 10-42 [facility] Serum or plasma calcium mike urement (mass/volume)Ordered By: Ethan Cummings on 12-02-2022 Calcium [Mass/Vol] 9.5 mg/dL 8.2-10.2 [facility] Serum or plasma chloride arash surement (moles/volume)Ordered By: Ethan Cummings on 12-02-2022 Chloride [Moles/Vol] 101 mmol/L 95-114 [facility] Serum or plasma glucose mike urement (mass/volume)Ordered By: Ethan Cummings on 12-02-2022 Glucose [Mass/Vol] 150 mg/dL 70-100 [facility] Comment on above: ADA recommended refe rence rangeRandom Glucose Reference Range is dependent on time and content of last meal. Glucose of more than 200 mg/dL in a nonstressed, ambulatory subject supports the diagnosis of Diabetes Mellitus. Serum or plasma potassium me asurement (moles/volume)Ordered By: Ethan Cummings on 12-02-2022 Potassium [Moles/Vol] 4.3 mmol/L 3.5-5.1 [facility] Serum or plasma sodium measu rement (moles/volume)Ordered By: Ethan Cummings on 12-02-2022 Sodium [Moles/Vol] 140 mmol/L 136-146 [facility] Serum or plasma total biliru bin measurement (mass/volume)Ordered By: Ethan Cummings on 12-02-2022 Bilirubin [Mass/Vol] 1.5 mg/dL 0.3-1.2 [facility] Comment on above: Samples from patient s who have taken Naproxen have shown spurious elevation in Total Bilirubin levels. A metabolite of Naproxen, O-desmethylnaproxen, has been shown to interfere with the Jesi-Ananya method for measuring Total Bilirubin. Serum or plasma total carbon dioxide measurement (moles/volume)Ordered By: Ethan Cummings on 12-02-2022 CO2 [Moles/Vol] 30.1 mmol/L 22.0-30.0 [facility] Serum or plasma urea nitroge n measurement (mass/volume)Ordered By: Ethan Cummings on 12-02-2022 Urea nitrogen [Mass/Vol] 22 mg/dL 9- [facility] WBC Auto (Bld) [#/Vol]Ordere d By: Ethan Cummings on 12-02-2022 WBC (Bld) [#/Vol] 11.8 10*3/uL 4.1-10.5 [facility] PROF CHEM 8 (BAS METB)on Anion gap [Moles/Vol] 12.6 mmol/L Normal [facility] Comment on above: Performed By: #### B MP ####[facility] [address] [place] [id number]. Emelina Navarro Calcium [Mass/Vol] 9.0 mg/dL Normal 8.5-10.1 [facility] Comment on above: Performed By: #### B MP ####[facility] [address] [place] [id number]. Emelina Navarro Chloride [Moles/Vol] 99 mmol/L Normal 98-107 [facility] Comment on above: Performed By: #### B MP ####[facility] [address] [place], [place] [id number]. Emelina Navarro CO2 [Moles/Vol] 33.2 mmol/L Critically high 21.0-32.0 [facility] Comment on above: Performed By: #### B MP ####[facility] [address] [place], [place] [address]Dr. Emelina Navarro Creatinine [Mass/Vol] 1.75 mg/dL Critically high 0.70-1.30 [facility] Comment on above: Performed By: #### B MP ####[facility] [address] [place], [place] [id number]. Emelina Navarro EGFR-AF [place]IZ[place] 47 mL/min/1.73m2 Critically low >=60 [facility] Comment on above: Performed By: #### B MP ####[facility] [address] [place], [place] [id number]. Emelina Navarro EGFR-NON AF CITIZEN [place] 39 mL/min/1.73m2 Critically low >=60 [facility] Comment on above: Performed By: #### B MP ####[facility] [address] [place] [phone]. Emelina Navarro Glucose [Mass/Vol] 132 mg/dL Critically high 74-106 [facility] Comment on above: Performed By: #### B MP ####[facility] [address] [place], [place] [address]Dr. Emelina Navarro Potassium [Moles/Vol] 3.8 mmol/L Normal 3.5-5.1 [facility] Comment on above: Performed By: #### B MP ####[facility] [address] [place], [place] [address]Pb. Emelina Navarro Sodium [Moles/Vol] 141 mmol/L Normal 136-145 [facility] Comment on above: Performed By: #### B MP ####[facility] [address] [place], [place] [address]Rt. Emelina Navarro Urea nitrogen [Mass/Vol] 22.0 mg/dL Critically high 7.0-18.0 [facility] Comment on above: Performed By: #### B MP ####[facility] [address] [place], [place] [address]Cz. Emelina Navarro Urea nitrogen/Creatinine [Mass ratio] 12.6 mg/mg Normal [facility] Comment on above: Performed By: #### B MP ####[facility] [address] [place] [phone]. Emelina Navarro A1C HEMOGLOBINon 11-07-2022 HbA1c (Bld) [Mass fraction] 7.4 % [facility] [employer] Other Glucose - FINGER STICKon Glucose [Mass/Vol] 109 mg/dL [employer] Other HbA1c (Bld) [Mass fraction]o n 11-07-2022 A1C HEMOGLOBIN [facility] [employer] Other PROF CHEM 8 (BAS METB)on Anion gap [Moles/Vol] 12.2 mmol/L Normal [facility] Comment on above: Performed By: #### B MP ####[facility] [address] [place], [place] [address]Az. Emelina Navarro Calcium [Mass/Vol] 8.7 mg/dL Normal 8.5-10.1 [facility] Comment on above: Performed By: #### B MP ####[facility] [address] [place] [phone]. Emelina Navarro Chloride [Moles/Vol] 101 mmol/L Normal 98-107 [facility] Comment on above: Performed By: #### B MP ####[facility] [address]we[address] [place] [phone]. Emelina Navarro CO2 [Moles/Vol] 29.9 mmol/L Normal 21.0-32.0 [facility] Comment on above: Performed By: #### B MP ####[facility] [address] [place] [phone]. Emelina Navarro Creatinine [Mass/Vol] 1.78 mg/dL Critically high 0.70-1.30 [facility] Comment on above: Performed By: #### B MP ####[facility] [address]fqzmd[address] [place] [phone]. Emelina Navarro EGFR-AF [place]IZ[place] 46 mL/min/1.73m2 Critically low >=60 [facility] Comment on above: Performed By: #### B MP ####[facility] [address] [place] [address]Dr. Emelina Navarro EGFR-NON AF [place]IZ[place] 38 mL/min/1.73m2 Critically low >=60 [facility] Comment on above: Performed By: #### B MP ####[facility] [address]so[address] [place] [phone]. Emelina Navarro Glucose [Mass/Vol] 127 mg/dL Critically high 74-106 [facility] Comment on above: Performed By: #### B MP ####[facility] Qea[address]ds[address] [place] [phone]. Emelina Navarro Potassium [Moles/Vol] 4.1 mmol/L Normal 3.5-5.1 [facility] Comment on above: Performed By: #### B MP ####[facility] [address]re[address] [place] [phone]. Emelina Navarro Sodium [Moles/Vol] 139 mmol/L Normal 136-145 [facility] Comment on above: Performed By: #### B MP ####[facility] O[address]ipk[address] [place] [phone]. Emelina Navarro Urea nitrogen [Mass/Vol] 39.0 mg/dL Critically high 7.0-18.0 [facility] Comment on above: Performed By: #### B MP ####[facility] [address] [place] [address]Dr. Emelina Naavrro Urea nitrogen/Creatinine [Mass ratio] 21.9 mg/mg Normal [facility] Comment on above: Performed By: #### B MP ####[facility] [address] [place], [place] [address]Dr. Emelina Navarro BNPon 10-03-2022 Natriuretic peptide B (Bld) [Mass/Vol] 7092.0 pg/mL Critically high <=900.0 [facility] Comment on above: Performed By: #### H STROPN, BNP, CMP ####[facility] [address] [place], [place] [address]Dr. Awildanitza Navarro CBC AUTO DIFFon 10-03-2022 BASO # 0.0 103/ul Normal 0.0-0.1 [facility] Comment on above: Performed By: #### C BC ####[facility] [address] [place], [place] [address]Dr. Emelina Navarro Basophils/100 WBC (Bld) 0.3 % Normal 0.2-2.0 [facility] Comment on above: Performed By: #### C BC ####[facility] [address] [place], [place] [address]Dr. Emelina Navarro EO # 0.3 103/ul Normal 0.0-0.7 [facility] Comment on above: Performed By: #### C BC ####[facility] [address] [place], [place] [address]Dr. Emelina Navarro Eosinophils/100 WBC (Bld) 2.5 % Normal 0.9-7.0 [facility] Comment on above: Performed By: #### C BC ####[facility] [address] [place], [place] [address]Dr. Emelina Navarro Erythrocyte distribution width (RBC) [Ratio] 16.1 % Critically high 11.0-15.0 [facility] Comment on above: Performed By: #### C BC ####[facility] [address] [place], [place] [address]Dr. Emelina Navarro Hematocrit (Bld) [Volume fraction] 40.4 % Critically low 42.0-54.0 [facility] Comment on above: Performed By: #### C BC ####[facility] [address]vf[address] [place] [address]DrWesley Navarro Hemoglobin (Bld) [Mass/Vol] 12.9 g/dL Critically low 14.0-18.0 [facility] Comment on above: Performed By: #### C BC ####[facility] [address]fomrx[address] [place] [address]DrWesley Navarro IG # 0.05 10e3/ul Critically high 0.00-0.[address] [facility] Comment on above: Performed By: #### C BC ####[facility] [address] [place], [place] [address]DrWesley Navarro IG % 0.4 % Normal 0.0-0.5 [facility] Comment on above: Performed By: #### C BC ####[facility] [address] [place], [place] [address]DrWesley Navarro LYMPH # 1.5 103/ul Normal 1.2-3.8 [facility] Comment on above: Performed By: #### C BC ####[facility] [address] [place], [place] [address]DrWesley Navarro Lymphocytes/100 WBC (Bld) 13.1 % Critically low 20.5-60.0 [facility] Comment on above: Performed By: #### C BC ####[facility] [address] [place], [place] [address]DrWesley Navarro MANUAL DIFF REQ NO Normal [facility] Comment on above: Performed By: #### C BC ####[facility] [address] [place] [address]DrWesley Navarro MCH (RBC) [Entitic mass] 28.9 pg Normal 25.9-34.0 [facility] Comment on above: Performed By: #### C BC ####[facility] [address] [place] [address]DrWesley Navarro MCHC (RBC) [Mass/Vol] 31.9 g/dL Normal 29.9-35.2 [facility] Comment on above: Performed By: #### C BC ####[facility] [address]dlbcmtle[address] [place] [address]DrWesley Navarro MCV (RBC) [Entitic vol] 90.6 fL Normal 80.0-94.0 [facility] Comment on above: Performed By: #### C BC ####[facility] [address] [place] [address]DrWesley Navarro MONO # 0.8 103/ul Normal 0.3-0.8 [facility] Comment on above: Performed By: #### C BC ####[facility] Vm[address]gflsvs[address] [place] [address]DrWesley Navarro Monocytes/100 WBC (Bld) 7.0 % Normal 1.7-12.0 [facility] Comment on above: Performed By: #### C BC ####[facility] [address] [place], [place] [address]DrWesley Navarro NEUT # 8.8 103/ul Critically high 1.4-6.5 [facility] Comment on above: Performed By: #### C BC ####[facility] [address] [place], [place] [address]DrWesley Navarro Neutrophils/100 WBC (Bld) 76.7 % Critically high 43.0-75.0 [facility] Comment on above: Performed By: #### C BC ####[facility] [address] [place] [address]DrWesley Navarro Platelet mean volume (Bld) [Entitic vol] 9.9 fL Normal 9.5-13.5 [facility] Comment on above: Performed By: #### C BC ####[facility] [address] [place] [phone] Navarro PLT 201 103/ul Normal 150-450 [facility] Comment on above: Performed By: #### C BC ####[facility] [address]16 [place] [phone] Navarro RBC 4.46 106/ul Critically low 4.70-6.10 [facility] Comment on above: Performed By: #### C BC ####[facility] [address] [place], [place] [address]UqWesley Emelina Navarro WBC 11.4 103/ul Critically high 4.0-11.0 [facility] Comment on above: Performed By: #### C BC ####[facility] [address] [place], [place] [address]XeWesley Emelina Navarro Covid-19 PCR (CVDTB)on 09-19 SARS-CoV-2 (COVID-19) RNA RADHA+probe Ql (Unsp spec) Not detected Normal NOT DETECTED [facility] Comment on above: Result Comment: [...] for this test is supported by the [employer] Manager of Health and Human Service's declaration that [...] be used). Performed By: #### C VDTBH ####[facility] [address] [place], [place] [address]FlWesley Awildanitza Navarro PROF 14(COMP METB)on 022 Albumin [Mass/Vol] 3.1 g/dL Critically low 3.4-5.0 [facility] Comment on above: Performed By: #### H STROPN, BNP, CMP ####[facility] [address] [place], [place] [address]OmWesley Awildanitza Navarro Albumin/Globulin [Mass ratio] 0.8 {ratio} Normal [facility] Comment on above: Performed By: #### H STROPN, BNP, CMP ####[facility] [address] [place] [address]Dr. Emelina Navarro ALP [Catalytic activity/Vol] 118 U/L Critically high 46-116 [facility] Comment on above: Performed By: #### H STROPN, BNP, CMP ####[facility] [address] [place] [address]Dr. Emelina Navarro ALT [Catalytic activity/Vol] 22 U/L Normal 16-63 [facility] Comment on above: Performed By: #### H STROPN, BNP, CMP ####[facility] Zz[address]kcvcml[address] [place] [address]Dr. Emelina Navarro Anion gap [Moles/Vol] 8.6 mmol/L Normal [facility] Comment on above: Performed By: #### H STROPN, BNP, CMP ####[facility] [address] [place], [place] [address]Dr. Emelina Navarro AST [Catalytic activity/Vol] 23 U/L Normal 15-37 [facility] Comment on above: Performed By: #### H STROPN, BNP, CMP ####[facility] [address] [place], [place] [address]Dr. Emelina Navarro Bilirubin [Mass/Vol] 1.0 mg/dL Normal 0.2-1.0 [facility] Comment on above: Performed By: #### H STROPN, BNP, CMP ####[facility] [address]ts[address]uk[address] [place] [address]Dr. Emelina Navarro Calcium [Mass/Vol] 8.4 mg/dL Critically low 8.5-10.1 [facility] Comment on above: Performed By: #### H STROPN, BNP, CMP ####[facility] [address]wr[address] [place] [address]Dr. Emelina Navarro Chloride [Moles/Vol] 101 mmol/L Normal 98-107 [facility] Comment on above: Performed By: #### H STROPN, BNP, CMP ####[facility] [address] [place] [address]Dr. Emelina Navarro CO2 [Moles/Vol] 33.3 mmol/L Critically high 21.0-32.0 [facility] Comment on above: Performed By: #### H STROPN, BNP, CMP ####[facility] [address] [place] [address]Dr. Emelina Navarro Creatinine [Mass/Vol] 1.52 mg/dL Critically high 0.70-1.30 [facility] Comment on above: Performed By: #### H STROPN, BNP, CMP ####[facility] [address] [place] [address]Dr. Emelina Navarro EGFR-AF CITIZ[place] 56 mL/min/1.73m2 Critically low >=60 [facility] Comment on above: Performed By: #### H STROPN, BNP, CMP ####[facility] [address] [place] [address]Dr. Emelina Navarro EGFR-NON AF CITIZEN OF [place] 46 mL/min/1.73m2 Critically low >=60 [facility] Comment on above: Performed By: #### H STROPN, BNP, CMP ####[facility] [address] [place] [address]Dr. Emelina Navarro Globulin (S) [Mass/Vol] 4.1 g/dL Normal [facility] Comment on above: Performed By: #### H STROPN, BNP, CMP ####[facility] [address]vgc[address] [place] [address]Dr. Emelina Navarro Glucose [Mass/Vol] 141 mg/dL Critically high 74-106 [facility] Comment on above: Performed By: #### H STROPN, BNP, CMP ####[facility] [address] [place] [address]Dr. Emelina Navarro Potassium [Moles/Vol] 3.9 mmol/L Normal 3.5-5.1 [facility] Comment on above: Performed By: #### H STROPN, BNP, CMP ####[facility] [address] [place] [address]Dr. Emelina Navarro Protein [Mass/Vol] 7.2 g/dL Normal 6.4-8.2 [facility] Comment on above: Performed By: #### H STROPN, BNP, CMP ####[facility] [address] [place], [place] [address]Dr. Emelina Navarro Sodium [Moles/Vol] 139 mmol/L Normal 136-145 [facility] Comment on above: Performed By: #### H STROPN, BNP, CMP ####[facility] [address]lr[address] [place], [place] [address]Dr. Emelina Navarro Urea nitrogen [Mass/Vol] 26.0 mg/dL Critically high 7.0-18.0 [facility] Comment on above: Performed By: #### H STROPN, BNP, CMP ####[facility] E[address]aqyfq[address] [place], [place] [address]Dr. Emelina Navarro Urea nitrogen/Creatinine [Mass ratio] 17.1 mg/mg Normal [facility] Comment on above: Performed By: #### H STROPN, BNP, CMP ####[facility] Yknqts[address] [place], [place] [address]Dr. Emelina Navarro PROTIMEon 10-03-2022 INR Coag (PPP) [Relative time] 1.76 {INR} Normal [facility] Comment on above: Performed By: #### P T, PTT ####[facility] Fkmxmsqbre[address] [place], [place] [address]Dr. Emelina Navarro INR GUIDELINES SEE BELOW Normal The [facility] Comment on above: Result Comment: WENDY RED INR: 2.0 - 3.0 CONDITIONS NOT LISTED BELOW 2.5 - 3.5 FOR PROSTHETIC HEART VALVE REPLACEMENT 2.5 - 3.5 RECURRENT THROMBOSIS Performed By: #### P T, PTT ####[facility] Qgbkvgctrc[address] [place], [place] [address]Dr. Emelina Navarro PT Coag (PPP) [Time] 18.3 s Critically high 9.0-11.6 The [facility] Comment on above: Performed By: #### P T, PTT ####[facility] Csw[address] [place], [place] [address]Dr. Emelina Navarro PTTon 10-03-2022 aPTT Coag (Bld) [Time] 33.9 s Normal 22.3-36.2 Th e [facility] Comment on above: Performed By: #### P T, PTT ####[facility] [address] [place] [address]Dr. Emelina Navarro TROPONIN, HIGH SENSITIVITYon 10-03-2022 HSTROP 40.2 pg/mL Normal 4.0-76.1 [facility] Comment on above: Result Comment: CUT- OFF POINTS HAVE BEEN ESTABLISHED BASED ON THE FOURTH UNIVERSAL DEFINITIONS OF MYOCARDIALINFARCTION. THE UPPER REFERENCE LIMIT (URL) OF TROPONIN, DEFINED THE 99TH PERCENTILE OFcTnI DISTRIBUTION IN A REFERENCE POPULATION, HAS BEEN CONFIRMED THE DECISION THRESHOLDFOR MO DIAGNOSIS. Performed By: #### H STROPN, BNP, CMP ####[facility] Lz[address] [place], [place] [address]Dr. Emelina Navarro XR CHEST 1 Von 10-03-2022 XR CHEST 1 V Normal [facility] PTH INTACTon 09-19-2022 PTH, Intact 52 pg/mL Normal 15-65 [facility] Comment on above: Performed By: #### P THINT ####[facility] Ztheytzage[address] [place], [place] [address]Dr. Emelina Navarro FERRITINon 09-18-2022 Ferritin [Mass/Vol] 92.0 ng/mL Normal 26.0-388.[address] [facility] Comment on above: Performed By: #### V ITAD, FERR, FETIBC ####[facility] Sprtpwxeip[address] [place], [place] [address]Dr. Emelina Navarro HEMOGRAM AND PLATELon 2021 Hematocrit (Bld) [Volume fraction] 44.3 % Normal 42.0-54.0 [facility] Comment on above: Performed By: #### H H ####[facility] Qceteizudi[address] [place], [place] [address]Dr. Emelina Navarro Hemoglobin (Bld) [Mass/Vol] 14.0 g/dL Normal 14.0-18.0 [facility] Comment on above: Performed By: #### H H ####[facility] [address] [place] [address]Dr. Emelina Navarro MCH (RBC) [Entitic mass] 29.0 pg Normal 25.9-34.0 [facility] Comment on above: Performed By: #### H H ####[facility] [address] [place] [address]Dr. Emelina Navarro MCHC (RBC) [Mass/Vol] 31.6 g/dL Normal 29.9-35.2 The [facility] Comment on above: Performed By: #### H H ####[facility] Qwd[address]cm[address] [place], [place] [address]Dr. Emelina Navarro MCV (RBC) [Entitic vol] 91.7 fL Normal 80.0-94.0 [facility] Comment on above: Performed By: #### H H ####[facility] [address]zq[address] [place], [place] [address]Dr. Emelina Navarro PLT 187 103/ul Normal 150-450 [facility] Comment on above: Performed By: #### H H ####[facility] Nbpvuutjpk[address] [place], [place] [address]Dr. Emelina Navarro RBC 4.83 106/ul Normal 4.70-6.10 The [facility] Comment on above: Performed By: #### H H ####[facility] [address] [place] [address]Dr. Emelina Navarro WBC 13.9 103/ul Critically high 4.0-11.0 [facility] Comment on above: Performed By: #### H H ####[facility] X[address]zth[address] [place], [place] [address]Dr. Emelina Navarro IRON AND TIBCon 09-18-2022 % SATURATION 28.9 % Normal The [facility] Comment on above: Performed By: #### V ITAD, FERR, FETIBC ####[facility] [address] [place] [address]Dr. Emelina Navarro Iron [Mass/Vol] 76.0 ug/dL Normal 65.0-175.0 The [facility] Comment on above: Performed By: #### V ITAD, FERR, FETIBC ####[facility] [address] [place] [address]Dr. Emelina Navarro TIBC DIRECT 263.0 ug/dL Normal 250.0-450. 0 [facility] Comment on above: Performed By: #### V ANA WEISS, FETIBC ####[facility] [address] [place] [address]Dr. Emelina Navarro MAGNESIUMon 09-18-2022 Magnesium [Mass/Vol] 2.3 mg/dL Normal 1.8-2.4 [facility] Comment on above: Performed By: #### R ENAL, URIC, MG ####[facility] [address] [place] [address]Dr. Emelina Navarro RENAL FUNCTION PANELon 09-18 Albumin [Mass/Vol] 3.5 g/dL Normal 3.4-5.0 [facility] Comment on above: Performed By: #### R ENAL, URIC, MG ####[facility] K[address]jc[address] [place], [place] [address]Dr. Emelina Navarro Calcium [Mass/Vol] 8.4 mg/dL Critically low 8.5-10.1 [facility] Comment on above: Performed By: #### R ENAL, URIC, MG ####[facility] [address] [place] [address]Dr. Emelina Navarro Chloride [Moles/Vol] 100 mmol/L Normal 98-107 [facility] Comment on above: Performed By: #### R ENAL, URIC, MG ####[facility] [address] [place] [address]Dr. Emelina Navarro CO2 [Moles/Vol] 31.0 mmol/L Normal 21.0-32.0 [facility] Comment on above: Performed By: #### R ENAL, URIC, MG ####[facility] [address] [place] [address]Dr. Emelina Navarro Creatinine [Mass/Vol] 1.63 mg/dL Critically high 0.70-1.30 [facility] Comment on above: Performed By: #### R ENAL, URIC, MG ####[facility] [address] [place] [address]Dr. Emelina Navarro EGFR-AF [place]IZ[place] 51 mL/min/1.73m2 Critically low >=60 [facility] Comment on above: Performed By: #### R ENAL, URIC, MG ####[facility] [address] [place] [address]Dr. Emelina Navarro EGFR-NON AF [place]IZ[place] 42 mL/min/1.73m2 Critically low >=60 [facility] Comment on above: Performed By: #### R ENAL, URIC, MG ####[facility] [address] [place] [address]Dr. Emelina Navarro Glucose [Mass/Vol] 135 mg/dL Critically high 74-106 [facility] Comment on above: Performed By: #### R ENAL, URIC, MG ####[facility] Legedybrjt[address] [place], [place] [address]Dr. Emelina Navarro Phosphate [Mass/Vol] 3.4 mg/dL Normal 2.6-4.7 [facility] Comment on above: Performed By: #### R ENAL, URIC, MG ####[facility] O[address] [place], [place] [address]Dr. Emelina Navarro Potassium [Moles/Vol] 4.5 mmol/L Normal 3.5-5.1 [facility] Comment on above: Performed By: #### R ENAL, URIC, MG ####[facility] [address] [place] [address]Dr. Emelina Navarro Sodium [Moles/Vol] 137 mmol/L Normal 136-145 [facility] Comment on above: Performed By: #### R ENAL, URIC, MG ####[facility] Sax[address] [place] [address]Dr. Emelina Navarro Urea nitrogen [Mass/Vol] 26.0 mg/dL Critically high 7.0-18.0 [facility] Comment on above: Performed By: #### R ENAL, URIC, MG ####[facility] [address] [place] [address]Dr. Emelina Navarro UA RANDOM W/MICROSCOPICon BACTERIA NONE SEEN Normal NONE SEEN The [facility] Comment on above: Performed By: #### U AMIC ####[facility] Dhluduelcp[address] [place], [place] [address]Dr. Emelina Navarro Bilirubin Ql (U) Negative Normal NEGATIVE [facility] Comment on above: Performed By: #### U AMIC ####[facility] [address] [place] [address]Dr. Emelina Navarro CAST NONE SEEN Normal NONE SEEN The [facility] Comment on above: Performed By: #### U AMIC ####[facility] Y[address]fo[address]fq[address] [place], [place] [address]Dr. Emelina Navarro Clarity (U) CLEAR Normal CLEAR The [facility] Comment on above: Performed By: #### U AMIC ####[facility] [address]aqn[address] [place] [address]Dr. Emelina Navarro Color (U) LT. YELLOW Normal YELLOW The [facility] Comment on above: Performed By: #### U AMIC ####[facility] Lsw[address]vx[address]rg[address] [place], [place] [address]Dr. Emelina Navarro Crystals LM Nom (Urine sed) NONE SEEN Normal NONE SEEN The [facility] Comment on above: Performed By: #### U AMIC ####[facility] Qsbwojutlb[address] [place], [place] [address]Dr. Emelina Navarro Epithelial cells LM Ql (Urine sed) NONE SEEN Normal NONE SEEN /RARE The [facility] Comment on above: Performed By: #### U AMIC ####[facility] Uficwlxlgd[address] [place], [place] [address]Dr. Emelina Navarro Glucose Ql (U) >1000 Abnormal NEGATIVE The [facility] Comment on above: Performed By: #### U AMIC ####[facility] Ikfqctbdnr[address] [place], [place] [address]Dr. Emelina Navarro Hemoglobin Ql (U) Negative Normal NEGATIVE [facility] Comment on above: Performed By: #### U AMIC ####[facility] V[address]ro[address]fli[address] [place], [place] [address]Dr. Emelina Navarro Ketones Ql (U) Negative Normal NEGATIVE [facility] Comment on above: Performed By: #### U AMIC ####[facility] [address] [place] [address]Dr. Emelina Navarro LEUKOCYTES Negative Normal NEGATIVE The [facility] Comment on above: Performed By: #### U AMIC ####[facility] Z[address]vmjxxea[address] [place] [address]Dr. Emelina Navarro MUCOUS NONE SEEN Normal NONE SEEN The [facility] Comment on above: Performed By: #### U AMIC ####[facility] B[address]cj[address] [place] [address]Dr. Emelina Navarro Nitrite Ql (U) Negative Normal NEGATIVE [facility] Comment on above: Performed By: #### U AMIC ####[facility] X[address]adsfhrg[address] [place], [place] [address]Dr. Emelina Navarro pH (U) 6.0 [pH] Normal 5-9 [facility] Comment on above: Performed By: #### U AMIC ####[facility] Jqrsskeiix[address] [place], [place] [address]Dr. Emelina Navarro RBC 0-2 Normal 0-2 [facility] Comment on above: Performed By: #### U AMIC ####[facility] Odkzeserub[address] [place], [place] [address]Dr. Emelina Navarro SPEC GRAVITY 1.010 Normal 1.005-<=1. 025 [facility] Comment on above: Performed By: #### U AMIC ####[facility] Frzlluusmb[address] [place], [place] [address]Dr. Emelina Navarro UA PROTEIN Negative Normal NEGATIVE/ TRACE The [facility] Comment on above: Performed By: #### U AMIC ####[facility] Ifbsnxghfo[address] [place], [place] [address]Dr. Emelina Navarro Urobilinogen Qn (U) 0.2 {Ashley'U}/dL Normal 0.2 - 1. 0 [facility] Comment on above: Performed By: #### U AMIC ####[facility] [address]yvcsvqzk[address] [place], [place] [address]Dr. Emelina Navarro WBC NONE SEEN Normal NONE SEEN The [facility] Comment on above: Performed By: #### U AMIC ####[facility] Vqumjqpemy[address] [place], [place] [address]Dr. Emelina Navarro URIC ACID SERUMon 09-18-2022 Urate [Mass/Vol] 9.2 mg/dL Critically high 3.5-7.2 The [facility] Comment on above: Performed By: #### R ENAL, URIC, MG ####[facility] Z[address]rd[address]zbypl[address] [place], [place] [address]Dr. Emelina Navarro URINE T PROTEIN CREAT RATIOo n 09-18-2022 Protein (U) [Mass/Vol] 17.5 mg/dL Critically high <=12.0 The [facility] Comment on above: Performed By: #### U RTPCR ####[facility] [address]vuvk[address] [place], [place] [address]Dr. Emelina Navarro UR PROT CREAT RAT 0.61 Normal [facility] Comment on above: Performed By: #### U RTPCR ####[facility] Twanebxyuj[address] [place], [place] [address]Dr. Emelina Navarro URINE CREAT 28.53 mg/dL Normal 20.00-300. 00 [facility] Comment on above: Performed By: #### U RTPCR ####[facility] [address]evuhwv[address] [place], [place] [address]Dr. Emelina Navarro VITAMIN D 25 OHon 09-18-2022 VIT D 25-OH 49.6 ng/mL Normal The [facility] Comment on above: Performed By: #### V ITAD, FERR, FETIBC ####[facility] [address] [place], [place] [address]Dr. Emelina Navarro VIT D RANGES SEE BELOW Normal The [facility] Comment on above: Result Comment: <20 ng/mL Vit D deficient 20 - <30 ng/mL Vit D insufficient 30 - 100 ng/mL Vit D sufficient >100 ng/mL Potential Toxicity Performed By: #### V ITAD, FERR, FETIBC ####[facility] O[address]zyknxy[address] [place], [place] [address]Dr. Emelina Navarro A1C HEMOGLOBINon 07-31-2022 HbA1c (Bld) [Mass fraction] 6.7 % [facility] [employer] Other Glucose - FINGER STICKon Glucose [Mass/Vol] 338 mg/dL [facility] [employer] Other HbA1c (Bld) [Mass fraction]o n 07-31-2022 A1C HEMOGLOBIN [facility] [employer] Other BNPon 07-19-2022 Natriuretic peptide B (Bld) [Mass/Vol] 7571.0 pg/mL Critically high <=900.0 [facility] Comment on above: Performed By: #### B VICTORINA, BNP ####[facility] [address] [place] [address]Dr. Emelina Navarro PROF CHEM 8 (BAS METB)on Anion gap [Moles/Vol] 11.6 mmol/L Normal [facility] Comment on above: Performed By: #### B VICTORINA, BNP ####[facility] [address] [place] [address]Dr. Emelina Navarro Calcium [Mass/Vol] 9.2 mg/dL Normal 8.5-10.1 [facility] Comment on above: Performed By: #### B MP, BNP ####[facility] Jos[address]vkxc[address] [place] [address]Dr. Emelina Navarro Chloride [Moles/Vol] 102 mmol/L Normal 98-107 [facility] Comment on above: Performed By: #### B MP, BNP ####[facility] Hvvtidfmmx[address] [place] [address]Dr. Emelina Navarro CO2 [Moles/Vol] 30.6 mmol/L Normal 21.0-32.0 [facility] Comment on above: Performed By: #### B MP, BNP ####[facility] [address]efeows[address]ms[address] [place] [address]Dr. Emelina Navarro Creatinine [Mass/Vol] 1.72 mg/dL Critically high 0.70-1.30 [facility] Comment on above: Performed By: #### B MP, BNP ####[facility] [address] [place] [address]Dr. Emelina Navarro EGFR-AF [place]IZ[place] 48 mL/min/1.73m2 Critically low >=60 [facility] Comment on above: Performed By: #### B MP, BNP ####[facility] [address] [place], [place] [address]Dr. Emelina Ramon EGFR-NON AF [place]IZ[place] 40 mL/min/1.73m2 Critically low >=60 [facility] Comment on above: Performed By: #### B MP, BNP ####[facility] Th[address]vatbn[address] [place], [place] [address]Dr. Emelina Navarro Glucose [Mass/Vol] 76 mg/dL Normal 74-106 [facility] Comment on above: Performed By: #### B MP, BNP ####[facility] [address]aftxe[address] [place], [place] [address]Dr. Emelina Navarro Potassium [Moles/Vol] 4.2 mmol/L Normal 3.5-5.1 [facility] Comment on above: Performed By: #### B MP, BNP ####[facility] Yut[address]ciait[address] [place], [place] [address]Dr. Emelina Navarro Sodium [Moles/Vol] 140 mmol/L Normal 136-145 [facility] Comment on above: Performed By: #### B MP, BNP ####[facility] Ovhosewckh[address] [place], [place] [address]Dr. Awildanitza Ramon Urea nitrogen [Mass/Vol] 19.0 mg/dL Critically high 7.0-18.0 [facility] Comment on above: Performed By: #### B MP, BNP ####[facility] Iqcbfdlorc[address] [place], [place] [address]Dr. Emelina Navarro Urea nitrogen/Creatinine [Mass ratio] 11.0 mg/mg Normal [facility] Comment on above: Performed By: #### B MP, BNP ####[facility] D[address]fxnvfsgd[address] [place], [place] [address]Dr. Emelina Navarro CBC AUTO DIFFon 06-16-2022 BASO # 0.0 103/ul Normal 0.0-0.1 [facility] Comment on above: Performed By: #### C BC ####[facility] Iwlbtmurhm[address] [place] [address]Dr. Emelina Ramon Basophils/100 WBC (Bld) 0.1 % Critically low 0.2-2.0 [facility] Comment on above: Performed By: #### C BC ####[facility] Z[address]htbyiho[address] [place], [place] [address]Dr. Emelina Navarro EO # 0.1 103/ul Normal 0.0-0.7 [facility] Comment on above: Performed By: #### C BC ####[facility] R[address]jbccpbsz[address] [place], [place] [address]Dr. Emelina Ramon Eosinophils/100 WBC (Bld) 0.4 % Critically low 0.9-7.0 [facility] Comment on above: Performed By: #### C BC ####[facility] Zxejzlcngu[address] [place], [place] [address]Dr. Emelina Navarro Erythrocyte distribution width (RBC) [Ratio] 17.1 % Critically high 11.0-15.0 [facility] Comment on above: Performed By: #### C BC ####[facility] I[address]hsbiny[address] [place], [place] [address]Dr. Emelina Navarro Hematocrit (Bld) [Volume fraction] 44.7 % Normal 42.0-54.0 [facility] Comment on above: Performed By: #### C BC ####[facility] Oixcooytkr[address] [place], [place] [address]Dr. Emelina Navarro Hemoglobin (Bld) [Mass/Vol] 14.5 g/dL Normal 14.0-18.0 [facility] Comment on above: Performed By: #### C BC ####[facility] [address] [place], [place] [address]Dr. Emelina Navarro IG # 0.07 10e3/ul Critically high 0.00-0.[address] [facility] Comment on above: Performed By: #### C BC ####[facility] Gmvk[address] [place], [place] [address]Dr. Emelina Navarro IG % 0.4 % Normal 0.0-0.5 [facility] Comment on above: Performed By: #### C BC ####[facility] Rcus[address]xayw[address] [place] [address]Dr. Emelina Navarro LYMPH # 2.0 103/ul Normal 1.2-3.8 [facility] Comment on above: Performed By: #### C BC ####[facility] [address]ixq[address]hw[address] [place] [address]Dr. Emelina Navarro Lymphocytes/100 WBC (Bld) 12.1 % Critically low 20.5-60.0 [facility] Comment on above: Performed By: #### C BC ####[facility] Lboypmlytb07[address] [place], [place] [address]Dr. Emelina Navarro MANUAL DIFF REQ NO Normal [facility] Comment on above: Performed By: #### C BC ####[facility] Kqjsomczrp6437[address] [place], [place] [address]Dr. Emelina Navarro MCH (RBC) [Entitic mass] 28.2 pg Normal 25.9-34.0 [facility] Comment on above: Performed By: #### C BC ####[facility] Xbkyddjrll11[address] [place], [place] [address]Dr. Awildanitza Navarro MCHC (RBC) [Mass/Vol] 32.4 g/dL Normal 29.9-35.2 [facility] Comment on above: Performed By: #### C BC ####[facility] Hmfqnkcmwo5069[address] [place], [place] [address]Dr. Emelina Navarro MCV (RBC) [Entitic vol] 86.8 fL Normal 80.0-94.0 [facility] Comment on above: Performed By: #### C BC ####[facility] Sdvhtodfum24[address] [place], [place] [address]Dr. Emelina Navarro MONO # 0.7 103/ul Normal 0.3-0.8 [facility] Comment on above: Performed By: #### C BC ####[facility] Yjdjxzsihs7041[address] [place], [place] [address]Dr. Emelina Navarro Monocytes/100 WBC (Bld) 4.3 % Normal 1.7-12.0 [facility] Comment on above: Performed By: #### C BC ####[facility] [address]ud[address] [place] [address]DrWesley Navarro NEUT # 13.4 103/ul Critically high 1.4-6.5 [facility] Comment on above: Performed By: #### C BC ####[facility] Vdfywtkkqs87[address] [place] [address]DrWesley Navarro Neutrophils/100 WBC (Bld) 82.7 % Critically high 43.0-75.0 [facility] Comment on above: Performed By: #### C BC ####[facility] Rcgtyitwok67[address] [place] [address]DrWesley Navarro Platelet mean volume (Bld) [Entitic vol] 9.5 fL Normal 9.5-13.5 [facility] Comment on above: Performed By: #### C BC ####[facility] Zilwcnueto80[address] [place], [place] [address]DrWesley Navarro PLT 218 103/ul Normal 150-450 [facility] Comment on above: Performed By: #### C BC ####[facility] Vjgdorvahw1316[address] [place], [place] [address]DrWesley Navarro RBC 5.15 106/ul Normal 4.70-6.10 [facility] Comment on above: Performed By: #### C BC ####[facility] Aprtphxinx1587[address] [place], [place] [address]Dr. Emelina Navarro WBC 16.2 103/ul Critically high 4.0-11.0 [facility] Comment on above: Performed By: #### C BC ####[facility] Aowomnbjzt[address] [place] [address]Dr. Emelina Navarro PROF 14(COMP METB)on 022 Albumin [Mass/Vol] 3.3 g/dL Critically low 3.4-5.0 [facility] Comment on above: Performed By: #### C MP ####[facility] Nbjoigzbnj24[address] [place] [address]DrWesley Navarro Albumin/Globulin [Mass ratio] 0.8 {ratio} Normal [facility] Comment on above: Performed By: #### C MP ####[facility] Dbvzdinuri3702 [place] [address]Dr. Emelina Navarro ALP [Catalytic activity/Vol] 81 U/L Normal 46-116 [facility] Comment on above: Performed By: #### C MP ####[facility] Wzocvbhynb78[address] [place] [address]Dr. Emelina Ramon ALT [Catalytic activity/Vol] 34 U/L Normal 16-63 [facility] Comment on above: Performed By: #### C MP ####[facility] Jzqtiywjfj9[address] [place], [place] [address]Dr. Emelina Ramon Anion gap [Moles/Vol] 14.1 mmol/L Normal [facility] Comment on above: Performed By: #### C MP ####[facility] Nrmipvxgyp279[address] [place], [place] [address]Dr. Emelina Ramon AST [Catalytic activity/Vol] 22 U/L Normal 15-37 [facility] Comment on above: Performed By: #### C MP ####[facility] Faxzqhvefh7024[address] [place], [place] [address]Dr. Emelina Ramon Bilirubin [Mass/Vol] 1.0 mg/dL Normal 0.2-1.0 [facility] Comment on above: Performed By: #### C MP ####[facility] Wzhkeemclt738[address] [place], [place] [address]Dr. Emelina Ramon Calcium [Mass/Vol] 8.6 mg/dL Normal 8.5-10.1 [facility] Comment on above: Performed By: #### C MP ####[facility] Hfruonmtec39[address] [place], [place] [id number]. Emelina Navarro Chloride [Moles/Vol] 98 mmol/L Normal 98-107 [facility] Comment on above: Performed By: #### C MP ####[facility] Tsxvpgzetm9153[address] [place], [place] [id number]. Emelina Navarro CO2 [Moles/Vol] 28.0 mmol/L Normal 21.0-32.0 [facility] Comment on above: Performed By: #### C MP ####[facility] Xuryinorue[address] [place] [address]Dr. Emelina Navarro Creatinine [Mass/Vol] 1.83 mg/dL Critically high 0.70-1.30 [facility] Comment on above: Performed By: #### C MP ####[facility] Fyyjnsmzfq85[address] [place] [address]Dr. Emelina Ramon EGFR-AF CITIZEN OF [place] 45 mL/min/1.73m2 Critically low >=60 [facility] Comment on above: Performed By: #### C MP ####[facility] Iomdhaozug[address] [place] [address]Dr. Emelina Ramon EGFR-NON AF CITIZEN OF [place] 37 mL/min/1.73m2 Critically low >=60 [facility] Comment on above: Performed By: #### C MP ####[facility] Lpovylaghl9[address] [place], [place] [address]Dr. Emelina Ramon Globulin (S) [Mass/Vol] 4.3 g/dL Normal [facility] Comment on above: Performed By: #### C MP ####[facility] Xvesoakicq3273[address] [place], [place] [address]Dr. Emelina Ramon Glucose [Mass/Vol] 173 mg/dL Critically high 74-106 [facility] Comment on above: Performed By: #### C MP ####[facility] Diihziwznk8858[address] [place], [place] [address]Dr. Awildanitza Navarro Potassium [Moles/Vol] 4.1 mmol/L Normal 3.5-5.1 [facility] Comment on above: Performed By: #### C MP ####[facility] Bggfbnycie039[address] [place], [place] [id number]. Emelina Navarro Protein [Mass/Vol] 7.6 g/dL Normal 6.4-8.2 [facility] Comment on above: Performed By: #### C MP ####[facility] Ybbuwcngmq933[address] [place], [place] [address]Dr. Emelina Navarro Sodium [Moles/Vol] 136 mmol/L Normal 136-145 [facility] Comment on above: Performed By: #### C MP ####[facility] Ktmsahybcg9023[address] [place], [place] [address]Dr. Emelina Navarro Urea nitrogen [Mass/Vol] 46.0 mg/dL Critically high 7.0-18.0 [facility] Comment on above: Performed By: #### C MP ####[facility] Pgjqwusxph4859[address] [place], [place] [address]Dr. Emelina Navarro Urea nitrogen/Creatinine [Mass ratio] 25.1 mg/mg Normal [facility] Comment on above: Performed By: #### C MP ####[facility] Toeddhwuii0428[address] [place], [place] [address]Dr. Emelina Navarro PROTIMEon 06-16-2022 INR Coag (PPP) [Relative time] 2.12 {INR} Normal [facility] Comment on above: Performed By: #### P T ####[facility] Yjeffnuoyv7537[address] [place], [place] [address]Dr. Emelina Navarro INR GUIDELINES SEE BELOW Normal [facility] Comment on above: Result Comment: WENDY RED INR: 2.0 - 3.0 CONDITIONS NOT LISTED BELOW 2.5 - 3.5 FOR PROSTHETIC HEART VALVE REPLACEMENT 2.5 - 3.5 RECURRENT THROMBOSIS Performed By: #### P T ####[facility] Jvxewzwrft8625[address] [place], [place] [address]Dr. Emelina Navarro PT Coag (PPP) [Time] 21.8 s Critically high 9.0-11.6 [facility] Comment on above: Performed By: #### P T ####[facility] Tsvocftihl7942[address] [place], [place] [address]Dr. Emelina Navarro BNPon 06-15-2022 Natriuretic peptide B (Bld) [Mass/Vol] 4304.0 pg/mL Critically high <=900.0 [facility] Comment on above: Performed By: #### B OBSERVATION NURSE ####[facility] Uangcpvxkr3468[address] [place], [place] [address]Dr. Emelina Navarro CBC AUTO DIFFon 06-15-2022 BASO # 0.0 103/ul Normal 0.0-0.1 [facility] Comment on above: Performed By: #### C BC ####[facility] Snyivoorit[address] [place] [address]Dr. Emelina Navarro Basophils/100 WBC (Bld) 0.1 % Critically low 0.2-2.0 [facility] Comment on above: Performed By: #### C BC ####[facility] Xcctdihhtq7557[address] [place], [place] [address]Dr. Emelina Navarro EO # 0.0 103/ul Normal 0.0-0.7 [facility] Comment on above: Performed By: #### C BC ####[facility] Pkrqklsjml2659[address] [place], [place] [address]Dr. Emelina Navarro Eosinophils/100 WBC (Bld) 0.1 % Critically low 0.9-7.0 [facility] Comment on above: Performed By: #### C BC ####[facility] Aaoezznnrf1628[address] [place], [place] [address]Dr. Emelina Navarro Erythrocyte distribution width (RBC) [Ratio] 17.1 % Critically high 11.0-15.0 [facility] Comment on above: Performed By: #### C BC ####[facility] Opxrcmjnxi847[address] [place], [place] [address]Dr. Emelina Navarro Hematocrit (Bld) [Volume fraction] 40.9 % Critically low 42.0-54.0 [facility] Comment on above: Performed By: #### C BC ####[facility] Skfjwmqqlh6748[address] [place], [place] [address]Dr. Emelina Navarro Hemoglobin (Bld) [Mass/Vol] 13.4 g/dL Critically low 14.0-18.0 [facility] Comment on above: Performed By: #### C BC ####[facility] Jozpmfjnlb1506[address] [place], [place] [address]Dr. Emelina Navarro IG # 0.17 10e3/ul Critically high 0.00-0.[address] [facility] Comment on above: Performed By: #### C BC ####[facility] Jgvxmlqzvo4136[address] [place], [place] [address]DrWesley Navarro IG % 0.8 % Critically high 0.0-0.5 [facility] Comment on above: Performed By: #### C BC ####[facility] Uqziguraff4417[address] [place], [place] [address]DrWesley Navarro LYMPH # 1.4 103/ul Normal 1.2-3.8 [facility] Comment on above: Performed By: #### C BC ####[facility] Lsgwemdulz[address] [place], [place] [address]DrWesley Navarro Lymphocytes/100 WBC (Bld) 6.8 % Critically low 20.5-60.0 [facility] Comment on above: Performed By: #### C BC ####[facility] Kermougtge8819[address] [place], [place] [address]DrWesley Navarro MANUAL DIFF REQ NO Normal [facility] Comment on above: Performed By: #### C BC ####[facility] Vwbmglouwb2596 [place] [address]DrWesley Navarro MCH (RBC) [Entitic mass] 28.6 pg Normal 25.9-34.0 [facility] Comment on above: Performed By: #### C BC ####[facility] Ybfuapquyf3[address] [place], [place] [address]DrWesley Navarro MCHC (RBC) [Mass/Vol] 32.8 g/dL Normal 29.9-35.2 [facility] Comment on above: Performed By: #### C BC ####[facility] Pdpguwvosu3794[address] [place], [place] [address]DrWesley Navarro MCV (RBC) [Entitic vol] 87.2 fL Normal 80.0-94.0 [facility] Comment on above: Performed By: #### C BC ####[facility] Qehpgwkyqq2704[address] [place], [place] [address]DrWesley Navarro MONO # 0.8 103/ul Normal 0.3-0.8 [facility] Comment on above: Performed By: #### C BC ####[facility] Tecrqukwuf2236[address] [place], [place] [address]DrWesley Navarro Monocytes/100 WBC (Bld) 3.8 % Normal 1.7-12.0 [facility] Comment on above: Performed By: #### C BC ####[facility] Vuyzzkbepm2[address] [place] [address]Dr. Emelina Navarro NEUT # 17.9 103/ul Critically high 1.4-6.5 [facility] Comment on above: Performed By: #### C BC ####[facility] Plfdgjsnzp4195 [place] [address]Dr. Emelina Navarro Neutrophils/100 WBC (Bld) 88.4 % Critically high 43.0-75.0 [facility] Comment on above: Performed By: #### C BC ####[facility] Dkajazqqnz7549[address] [place], [place] [address]Dr. Emelina Navarro Platelet mean volume (Bld) [Entitic vol] 9.7 fL Normal 9.5-13.5 [facility] Comment on above: Performed By: #### C BC ####[facility] Jbqlogurbf5664[address] [place], [place] [address]Dr. Emelina Ramon PLT 211 103/ul Normal 150-450 [facility] Comment on above: Performed By: #### C BC ####[facility] Hefudabfci1909[address] [place], [place] [address]Dr. Emelina Navarro RBC 4.69 106/ul Critically low 4.70-6.10 [facility] Comment on above: Performed By: #### C BC ####[facility] Lfolnwlwtp5161 [place] [id number]. Emelina Ramon WBC 20.2 103/ul Critically high 4.0-11.0 [facility] Comment on above: Performed By: #### C BC ####[facility] Rkewqaqmwr5[address] [place], [place] [address]DrWesley Awildanitza Navarro PROF 14(COMP METB)on 022 Albumin [Mass/Vol] 2.9 g/dL Critically low 3.4-5.0 [facility] Comment on above: Performed By: #### C MP ####[facility] Xermwtrfaj0811[address] [place], [place] [address]Dr. Emelina Navarro Albumin/Globulin [Mass ratio] 0.7 {ratio} Normal [facility] Comment on above: Performed By: #### C MP ####[facility] Kcwirnfgvx4842[address] [place], [place] [address]Dr. Awildanitza Navarro ALP [Catalytic activity/Vol] 77 U/L Normal 46-116 [facility] Comment on above: Performed By: #### C MP ####[facility] Wwgguqatxv4819[address] [place], [place] [address]Dr. mEelina Navarro ALT [Catalytic activity/Vol] 26 U/L Normal 16-63 [facility] Comment on above: Performed By: #### C MP ####[facility] Hggnvllcsw2525[address] [place], [place] [address]Dr. Emelina Navarro Anion gap [Moles/Vol] 13.2 mmol/L Normal [facility] Comment on above: Performed By: #### C MP ####[facility] Yarmxdwlnp3985[address] [place], [place] [address]Dr. Emelina Navarro AST [Catalytic activity/Vol] 18 U/L Normal 15-37 [facility] Comment on above: Performed By: #### C MP ####[facility] Nxviamxpbu7346[address] [place], [place] [address]Dr. Emelina Navarro Bilirubin [Mass/Vol] 0.8 mg/dL Normal 0.2-1.0 [facility] Comment on above: Performed By: #### C MP ####[facility] Lhcunmogcc8377[address] [place], [place] [address]Dr. Emelina Navarro Calcium [Mass/Vol] 8.4 mg/dL Critically low 8.5-10.1 [facility] Comment on above: Performed By: #### C MP ####[facility] Jealgwegji765[address] [place], [place] [address]Dr. Emelina Navarro Chloride [Moles/Vol] 101 mmol/L Normal 98-107 [facility] Comment on above: Performed By: #### C MP ####[facility] Uvcfyfjvxj5769[address] [place], [place] [address]Dr. Emelina Navarro CO2 [Moles/Vol] 27.9 mmol/L Normal 21.0-32.0 [facility] Comment on above: Performed By: #### C MP ####[facility] Xguhcoemtt5[address] [place] [address]Dr. Emelina Ramon Creatinine [Mass/Vol] 1.90 mg/dL Critically high 0.70-1.30 [facility] Comment on above: Performed By: #### C MP ####[facility] Evvaahldum8[address] [place] [address]Dr. Emelina Ramon EGFR-AF [place]IZ[place] 43 mL/min/1.73m2 Critically low >=60 [facility] Comment on above: Performed By: #### C MP ####[facility] Drejewfwtn8347[address] [place], [place] [address]Dr. Awildanitza Ramon EGFR-NON AF [place]IZEN [place] 36 mL/min/1.73m2 Critically low >=60 [facility] Comment on above: Performed By: #### C MP ####[facility] Wgoaefkxzd0529[address] [place], [place] [address]Dr. Emelina Ramon Globulin (S) [Mass/Vol] 3.9 g/dL Normal [facility] Comment on above: Performed By: #### C MP ####[facility] Yztthdwfkq7669[address] [place], [place] [address]Dr. Awildanitza Ramon Glucose [Mass/Vol] 175 mg/dL Critically high 74-106 [facility] Comment on above: Performed By: #### C MP ####[facility] Hhplzqkuof326[address] [place], [place] [address]Dr. Emelina Navarro Potassium [Moles/Vol] 4.1 mmol/L Normal 3.5-5.1 [facility] Comment on above: Performed By: #### C MP ####[facility] Qwsttigvnp8379[address] [place], [place] [address]Dr. Emelina Navarro Protein [Mass/Vol] 6.8 g/dL Normal 6.4-8.2 [facility] Comment on above: Performed By: #### C MP ####[facility] Zagxgdlgcv0941[address] [place], [place] [address]DrWesley Navarro Sodium [Moles/Vol] 138 mmol/L Normal 136-145 [facility] Comment on above: Performed By: #### C MP ####[facility] Xofzpqgrcg98[address] [place], [place] [address]DrWesley Navarro Urea nitrogen [Mass/Vol] 46.0 mg/dL Critically high 7.0-18.0 [facility] Comment on above: Performed By: #### C MP ####[facility] Yxonzsttlw[address] [place], [place] [address]DrWesley Navarro Urea nitrogen/Creatinine [Mass ratio] 24.2 mg/mg Normal [facility] Comment on above: Performed By: #### C MP ####[facility] Nwqowxlroh6433[address] [place], [place] [address]DrWesley Navarro PROTIMEon 06-15-2022 INR Coag (PPP) [Relative time] 3.34 {INR} Normal [facility] Comment on above: Performed By: #### P T ####[facility] Dxpsfiotma5585[address] [place], [place] [address]DrWesley Navarro INR GUIDELINES SEE BELOW Normal [facility] Comment on above: Result Comment: WENDY RED INR: 2.0 - 3.0 CONDITIONS NOT LISTED BELOW 2.5 - 3.5 FOR PROSTHETIC HEART VALVE REPLACEMENT 2.5 - 3.5 RECURRENT THROMBOSIS Performed By: #### P T ####[facility] Yddnzbbldy832[address] [place], [place] [address]DrWesley Navarro PT Coag (PPP) [Time] 33.3 s Critically high 9.0-11.6 [facility] Comment on above: Performed By: #### P T ####[facility] Zcbozyhsmp021[address] [place], [place] [address]DrWesley Navarro CBC AUTO DIFFon 06-14-2022 BASO # 0.0 103/ul Normal 0.0-0.1 [facility] Comment on above: Performed By: #### C BC ####[facility] Cadhrqtogz2237[address] [place], [place] [address]DrWesley Navarro Basophils/100 WBC (Bld) 0.1 % Critically low 0.2-2.0 [facility] Comment on above: Performed By: #### C BC ####[facility] Opdmtnfuaf38[address] [place] [address]DrWesley Navarro EO # 0.0 103/ul Normal 0.0-0.7 [facility] Comment on above: Performed By: #### C BC ####[facility] Omoewvjvgo59[address] [place], [place] [address]DrWesley aNvarro Eosinophils/100 WBC (Bld) 0.0 % Critically low 0.9-7.0 [facility] Comment on above: Performed By: #### C BC ####[facility] Vrkxjlysio4053[address] [place], [place] [address]DrWesley Navarro Erythrocyte distribution width (RBC) [Ratio] 17.0 % Critically high 11.0-15.0 [facility] Comment on above: Performed By: #### C BC ####[facility] Rfosvrwstz2056[address] [place], [place] [address]DrWesley Navarro Hematocrit (Bld) [Volume fraction] 40.2 % Critically low 42.0-54.0 [facility] Comment on above: Performed By: #### C BC ####[facility] Rsxbtbwfru8925[address] [place], [place] [address]DrWesley Navarro Hemoglobin (Bld) [Mass/Vol] 13.0 g/dL Critically low 14.0-18.0 [facility] Comment on above: Performed By: #### C BC ####[facility] Uiyccklorm6[address] [place], [place] [address]DrWesley Navarro IG # 0.18 10e3/ul Critically high 0.00-0.[address] [facility] Comment on above: Performed By: #### C BC ####[facility] Eduowzvqij30[address] [place], [place] [address]DrWesley Navarro IG % 0.8 % Critically high 0.0-0.5 [facility] Comment on above: Performed By: #### C BC ####[facility] Xdfbjrotbt0587[address] [place], [place] [address]DrWesley Navarro LYMPH # 1.1 103/ul Critically low 1.2-3.8 [facility] Comment on above: Performed By: #### C BC ####[facility] Webiavsyrb3416 [place] [address]DrWesley Navarro Lymphocytes/100 WBC (Bld) 5.4 % Critically low 20.5-60.0 [facility] Comment on above: Performed By: #### C BC ####[facility] Kutobdxhlp[address] [place], [place] [address]DrWesley Navarro MANUAL DIFF REQ NO Normal [facility] Comment on above: Performed By: #### C BC ####[facility] Lrdqhlfflq7[address] [place], [place] [address]Dr. Emelina Navarro MCH (RBC) [Entitic mass] 28.4 pg Normal 25.9-34.0 [facility] Comment on above: Performed By: #### C BC ####[facility] Qsvkowknzs[address] [place], [place] [address]Dr. Emelina Navarro MCHC (RBC) [Mass/Vol] 32.3 g/dL Normal 29.9-35.2 [facility] Comment on above: Performed By: #### C BC ####[facility] Qzrccchhwt[address] [place], [place] [address]DrWesley Navarro MCV (RBC) [Entitic vol] 88.0 fL Normal 80.0-94.0 [facility] Comment on above: Performed By: #### C BC ####[facility] [address] [place], [place] [address]DrWesley Navarro MONO # 0.6 103/ul Normal 0.3-0.8 [facility] Comment on above: Performed By: #### C BC ####[facility] Bfprefxujr4[address] [place], [place] [address]DrWesley Navarro Monocytes/100 WBC (Bld) 3.0 % Normal 1.7-12.0 [facility] Comment on above: Performed By: #### C BC ####[facility] Usdxgcdvbw74[address] [place], [place] [address]Dr. Emelina Navarro NEUT # 19.3 103/ul Critically high 1.4-6.5 [facility] Comment on above: Performed By: #### C BC ####[facility] Hrfqyqelbo[address] [place] [address]DrWesley Navarro Neutrophils/100 WBC (Bld) 90.7 % Critically high 43.0-75.0 [facility] Comment on above: Performed By: #### C BC ####[facility] Pxojnltctd060[address] [place] [address]DrWesley Navarro Platelet mean volume (Bld) [Entitic vol] 10.6 fL Normal 9.5-13.5 [facility] Comment on above: Performed By: #### C BC ####[facility] Jpcjuirfxf[address] [place], [place] [address]Dr. Emelina Navarro PLT 191 103/ul Normal 150-450 [facility] Comment on above: Performed By: #### C BC ####[facility] Agbvtswwvk[address]42[address] [place], [place] [address]DrWesley Navarro RBC 4.57 106/ul Critically low 4.70-6.10 [facility] Comment on above: Performed By: #### C BC ####[facility] Euqkyjiusi[address] [place], [place] [address]DrWesley Navarro WBC 21.3 103/ul Critically high 4.0-11.0 [facility] Comment on above: Performed By: #### C BC ####[facility] Qvzqsovorr[address] [place], [place] [address]DrWesley Navarro PROF 14(COMP METB)on 022 Albumin [Mass/Vol] 2.5 g/dL Critically low 3.4-5.0 [facility] Comment on above: Performed By: #### C MP ####[facility] Qjbilwpwvz[address] [place], [place] [address]DrWesley Navarro Albumin/Globulin [Mass ratio] 0.6 {ratio} Normal [facility] Comment on above: Performed By: #### C MP ####[facility] Atomvncizf[address] [place], [place] [address]DrWesley Navarro ALP [Catalytic activity/Vol] 77 U/L Normal 46-116 [facility] Comment on above: Performed By: #### C MP ####[facility] Ljfnfhsbsx23[address] [place] [address]Dr. Emelina Navarro ALT [Catalytic activity/Vol] 25 U/L Normal 16-63 [facility] Comment on above: Performed By: #### C MP ####[facility] Cjnltsidxb9[address] [place], [place] [address]Dr. Emelina Ramon Anion gap [Moles/Vol] 12.5 mmol/L Normal [facility] Comment on above: Performed By: #### C MP ####[facility] Xovpgaenzv[address]25[address] [place], [place] [address]Dr. Emelina Ramon AST [Catalytic activity/Vol] 34 U/L Normal 15-37 [facility] Comment on above: Performed By: #### C MP ####[facility] Hpkezbkltr[address] [place], [place] [address]Dr. Emelina Ramon Bilirubin [Mass/Vol] 0.9 mg/dL Normal 0.2-1.0 [facility] Comment on above: Performed By: #### C MP ####[facility] Vwkiwjzrwe17[address] [place], [place] [address]Dr. Emelina Ramon Calcium [Mass/Vol] 8.1 mg/dL Critically low 8.5-10.1 [facility] Comment on above: Performed By: #### C MP ####[facility] Bqnvtzvbka9[address] [place], [place] [address]Dr. Emelina Ramon Chloride [Moles/Vol] 101 mmol/L Normal 98-107 [facility] Comment on above: Performed By: #### C MP ####[facility] Jfwehmcyng[address] [place], [place] [address]Dr. Emelina Ramon CO2 [Moles/Vol] 24.8 mmol/L Normal 21.0-32.0 [facility] Comment on above: Performed By: #### C MP ####[facility] Yrcrrrvaot99[address] [place], [place] [address]Dr. Emelina Ramon Creatinine [Mass/Vol] 1.93 mg/dL Critically high 0.70-1.30 [facility] Comment on above: Performed By: #### C MP ####[facility] Qeqjkjmzox[address] [place] [address]Dr. Awildanitza Ramon EGFR-AF CITIZEN [place] 42 mL/min/1.73m2 Critically low >=60 [facility] Comment on above: Performed By: #### C MP ####[facility] Hthlbefgcm[address] [place] [address]Dr. Emelina Navarro EGFR-NON AF CITIZEN OF [place] 35 mL/min/1.73m2 Critically low >=60 [facility] Comment on above: Performed By: #### C MP ####[facility] Scqwkwlwsb[address] [place], [place] [address]Dr. Emelina Navarro Globulin (S) [Mass/Vol] 3.9 g/dL Normal [facility] Comment on above: Performed By: #### C MP ####[facility] Ljazqbubbf5[address] [place], [place] [address]Dr. Emelina Navarro Glucose [Mass/Vol] 236 mg/dL Critically high 74-106 [facility] Comment on above: Performed By: #### C MP ####[facility] Qtqbcgnvkt70[address] [place], [place] [address]Dr. Emelina Navarro Potassium [Moles/Vol] 5.3 mmol/L Critically high 3.5-5.1 [facility] Comment on above: Performed By: #### C MP ####[facility] Zfdodrdlyk[address] [place] [address]Dr. Emelina Navarro Protein [Mass/Vol] 6.4 g/dL Normal 6.4-8.2 [facility] Comment on above: Performed By: #### C MP ####[facility] Mhebplzgcg[address] [place], [place] [address]Dr. Emelina Navarro Sodium [Moles/Vol] 133 mmol/L Critically low 136-145 [facility] Comment on above: Performed By: #### C MP ####[facility] Ikmwryeeat7816[address] [place], [place] [address]Dr. Emelina Navarro Urea nitrogen [Mass/Vol] 43.0 mg/dL Critically high 7.0-18.0 [facility] Comment on above: Performed By: #### C MP ####[facility] Hezmgtjvub39[address] [place] [address]Dr. Emelina Navarro Urea nitrogen/Creatinine [Mass ratio] 22.3 mg/mg Normal [facility] Comment on above: Performed By: #### C MP ####[facility] Kdoqncmmhr12[address] [place], [place] [address]Dr. Emelina Ramon PROTIMEon 06-14-2022 INR Coag (PPP) [Relative time] 4.39 {INR} Critically high [facility] Comment on above: Performed By: #### P T ####[facility] Nxaxolmvch[address] [place], [place] [address]Dr. Emelina Ramon INR GUIDELINES SEE BELOW Normal [facility] Comment on above: Result Comment: WENDY RED INR: 2.0 - 3.0 CONDITIONS NOT LISTED BELOW 2.5 - 3.5 FOR PROSTHETIC HEART VALVE REPLACEMENT 2.5 - 3.5 RECURRENT THROMBOSIS Performed By: #### P T ####[facility] Saehuijkvk[address] [place], [place] [address]Dr. Awildanitza Navarro PT Coag (PPP) [Time] 43.0 s Critically high 9.0-11.6 [facility] Comment on above: Performed By: #### P T ####[facility] Yyhscxvbxn[address] [place], [place] [address]Dr. Awildaintza Navarro XR CHEST 1 Von 06-14-2022 XR CHEST 1 V Normal [facility] BNPon 06-13-2022 Natriuretic peptide B (Bld) [Mass/Vol] 9889.0 pg/mL Critically high <=900.0 [facility] Comment on above: Performed By: #### B MP, BNP ####[facility] Jolwubaplj[address] [place], [place] [address]Dr. Emelina Ramon CBC AUTO DIFFon 06-13-2022 BASO # 0.0 103/ul Normal 0.0-0.1 [facility] Comment on above: Performed By: #### C BC ####[facility] Aufzbmicaq5[address] [place] [id number]. Emelina Navarro Basophils/100 WBC (Bld) 0.1 % Critically low 0.2-2.0 [facility] Comment on above: Performed By: #### C BC ####[facility] [address] [place], [place] [id number]. Emelina Navarro EO # 0.0 103/ul Normal 0.0-0.7 [facility] Comment on above: Performed By: #### C BC ####[facility] Ldlnefaunk6[address] [place], [place] [address]Dr. Emelina Navarro Eosinophils/100 WBC (Bld) 0.0 % Critically low 0.9-7.0 [facility] Comment on above: Performed By: #### C BC ####[facility] Zmbdlkvzwz[address] [place], [place] [address]Dr. Emelina Navarro Erythrocyte distribution width (RBC) [Ratio] 17.4 % Critically high 11.0-15.0 [facility] Comment on above: Performed By: #### C BC ####[facility] Heijbnrbhi[address] [place], [place] [address]Dr. Emelina Navarro Hematocrit (Bld) [Volume fraction] 43.5 % Normal 42.0-54.0 [facility] Comment on above: Performed By: #### C BC ####[facility] [address]mt[address] [place], [place] [id number]. Emelina Navarro Hemoglobin (Bld) [Mass/Vol] 14.1 g/dL Normal 14.0-18.0 [facility] Comment on above: Performed By: #### C BC ####[facility] Roixkpceft[address] [place], [place] [address]Dr. Emelina Navarro IG # 0.15 10e3/ul Critically high 0.00-0.[address] [facility] Comment on above: Performed By: #### C BC ####[facility] Jinlrffuwy[address] [place], [place] [address]Dr. Emelina Navarro IG % 0.8 % Critically high 0.0-0.5 [facility] Comment on above: Performed By: #### C BC ####[facility] Ianlmufokx15[address] [place] [id number]. Emelina Navarro LYMPH # 0.9 103/ul Critically low 1.2-3.8 [facility] Comment on above: Performed By: #### C BC ####[facility] Ivzhqjsxeq9266 [place] [phone]. Emelina Navarro Lymphocytes/100 WBC (Bld) 5.0 % Critically low 20.5-60.0 [facility] Comment on above: Performed By: #### C BC ####[facility] Qfiprkbcxl[address] [place] [phone]. Emelina Navarro MANUAL DIFF REQ NO Normal [facility] Comment on above: Performed By: #### C BC ####[facility] Vinibvpmlo0180 [place] [phone]. Emelina Navarro MCH (RBC) [Entitic mass] 28.8 pg Normal 25.9-34.0 [facility] Comment on above: Performed By: #### C BC ####[facility] Cjvhzhztex[address] [place] [address]Dr. Emelina Navarro MCHC (RBC) [Mass/Vol] 32.4 g/dL Normal 29.9-35.2 [facility] Comment on above: Performed By: #### C BC ####[facility] Zeegjlydoy2118 [place] [phone]. Emelina Navarro MCV (RBC) [Entitic vol] 89.0 fL Normal 80.0-94.0 [facility] Comment on above: Performed By: #### C BC ####[facility] Wkvzloihlx4606 [place] [address]Dr. Emelina Navarro MONO # 0.1 103/ul Critically low 0.3-0.8 [facility] Comment on above: Performed By: #### C BC ####[facility] Zsvxnqphcn2438 [place] [phone]. Emelina Navarro Monocytes/100 WBC (Bld) 0.5 % Critically low 1.7-12.0 [facility] Comment on above: Performed By: #### C BC ####[facility] Adycblguwi1656 [place] [phone]. Emelina Navarro NEUT # 17.4 103/ul Critically high 1.4-6.5 [facility] Comment on above: Performed By: #### C BC ####[facility] Wvqowgzwpg2169 [place] [phone]. Emelina Navarro Neutrophils/100 WBC (Bld) 93.6 % Critically high 43.0-75.0 [facility] Comment on above: Performed By: #### C BC ####[facility] Nkxilfqrwx4938 [place] [phone]. Emelina Navarro Platelet mean volume (Bld) [Entitic vol] 9.8 fL Normal 9.5-13.5 [facility] Comment on above: Performed By: #### C BC ####[facility] Mvhglygmfj5613 [place] [address]Dr. Emelina Navarro PLT 186 103/ul Normal 150-450 [facility] Comment on above: Performed By: #### C BC ####[facility] Tmvpajlktl4850 [place] [phone]. Emelina Navarro RBC 4.89 106/ul Normal 4.70-6.10 [facility] Comment on above: Performed By: #### C BC ####[facility] Sabxpizten7261 [place] [phone]. Emelina Navarro WBC 18.6 103/ul Critically high 4.0-11.0 [facility] Comment on above: Performed By: #### C BC ####[facility] Gqsrvhqihy[address] [place] [phone]. Emelina Navarro CT CHEST WO CONon 06-13-2022 CT CHEST WO CON Normal [facility] CULTURE SPUTUMon 06-13-2022 CULTURE SPUTUM Culture Observations : NORMAL RESPIRATORY CEDRIC. Normal [facility] Comment on above: Performed By: #### S PUTCX ####[facility] S[address]wjybvojj[address] [place] [address]Dr. Emelina Navarro ECHOCARDIO M/2D COMPLETEon 0 06-13-2022 ECHOCARDIO M/2D COMPLETE Normal [facility] POINT OF CARE GLUCOSEon 07-2 Glucose [Mass/Vol] 255 mg/dL Critically high 74-106 [facility] Comment on above: Performed By: #### P OCGLUC ####[facility] Pejfdldmyg5[address] [place] [address]Dr. Emelina Navarro Glucose [Mass/Vol] 408 mg/dL Critically high 74-106 [facility] Comment on above: Performed By: #### P OCGLUC ####[facility] Soersvwimu027[address] [place] [address]Dr. Emelina Navarro PROF CHEM 8 (BAS METB)on Anion gap [Moles/Vol] 14.7 mmol/L Normal [facility] Comment on above: Performed By: #### B MP, BNP ####[facility] Dmxtfkfnfz2434 [place] [address]Dr. Emelina Navarro Calcium [Mass/Vol] 8.3 mg/dL Critically low 8.5-10.1 [facility] Comment on above: Performed By: #### B MP, BNP ####[facility] Bskkkiesha65[address] [place] [address]Dr. Emelina Navarro Chloride [Moles/Vol] 102 mmol/L Normal 98-107 [facility] Comment on above: Performed By: #### B MP, BNP ####[facility] Bgsdyqkqva1207 [place] [address]Dr. Emelina Navarro CO2 [Moles/Vol] 26.0 mmol/L Normal 21.0-32.0 [facility] Comment on above: Performed By: #### B MP, BNP ####[facility] Zbzuhbaaqr3334 [place] [address]Dr. Emelina Navarro Creatinine [Mass/Vol] 2.07 mg/dL Critically high 0.70-1.30 [facility] Comment on above: Performed By: #### B MP, BNP ####[facility] Szdjonqowl6429 [place] [address]Dr. Emelina Navarro EGFR-AF [place]IZ[place] 39 mL/min/1.73m2 Critically low >=60 [facility] Comment on above: Performed By: #### B MP, BNP ####[facility] Lxvclrgwsy[address] [place], [place] [address]Dr. Awildanitza Ramon EGFR-NON AF [place]IZ[place] 32 mL/min/1.73m2 Critically low >=60 [facility] Comment on above: Performed By: #### B MP, BNP ####[facility] Hohgoepdmr5[address] [place], [place] [address]Dr. Emelina Navarro Glucose [Mass/Vol] 245 mg/dL Critically high 74-106 [facility] Comment on above: Performed By: #### B MP, BNP ####[facility] Ajrscsaxvt23[address] [place], [place] [address]Dr. Emelina Navarro Potassium [Moles/Vol] 4.7 mmol/L Normal 3.5-5.1 [facility] Comment on above: Performed By: #### B MP, BNP ####[facility] Jfcxoplxer69[address] [place], [place] [address]Dr. Emelina Navarro Sodium [Moles/Vol] 138 mmol/L Normal 136-145 [facility] Comment on above: Performed By: #### B MP, BNP ####[facility] Tgjmqmnmqg[address] [place], [place] [address]Dr. Emelina Navarro Urea nitrogen [Mass/Vol] 30.0 mg/dL Critically high 7.0-18.0 [facility] Comment on above: Performed By: #### B MP, BNP ####[facility] Rmsohaysay[address] [place], [place] [address]Dr. Emelina Navarro Urea nitrogen/Creatinine [Mass ratio] 14.5 mg/mg Normal [facility] Comment on above: Performed By: #### B MP, BNP ####[facility] Tqolejupxy[address] [place], [place] [address]Dr. Emelina Navarro PROTIMEon 06-13-2022 INR Coag (PPP) [Relative time] 3.59 {INR} Normal [facility] Comment on above: Performed By: #### P T ####[facility] Vzeqepzvlx[address] [place], [place] [address]Dr. Emelina Navarro INR GUIDELINES SEE BELOW Normal [facility] Comment on above: Result Comment: WENDY RED INR: 2.0 - 3.0 CONDITIONS NOT LISTED BELOW 2.5 - 3.5 FOR PROSTHETIC HEART VALVE REPLACEMENT 2.5 - 3.5 RECURRENT THROMBOSIS Performed By: #### P T ####[facility] Dpwcqittri224[address] [place] [address]Dr. Emelina Navarro PT Coag (PPP) [Time] 35.7 s Critically high 9.0-11.6 [facility] Comment on above: Performed By: #### P T ####[facility] Qyalpomhwk[address] [place], [place] [address]Dr. Emelina Navarro SPUTUM GRAM STAINon 06-13-20 COMMENTS Normal [facility] Comment on above: Performed By: #### S PUTGS ####[facility] Aznrgcojps[address] [place], [place] [address]Dr. Emelina Navarro DIPHTHEROIDS Normal [facility] Comment on above: Performed By: #### S PUTGS ####[facility] Obgvgvjqjl69[address] [place], [place] [address]Dr. Emelina Navarro EPITHELIALS <25 Normal [facility] Comment on above: Performed By: #### S PUTGS ####[facility] Lqooplwvmf[address] [place], [place] [address]Dr. Emelina Navarro FUNGAL ELEMENTS Normal [facility] Comment on above: Performed By: #### S PUTGS ####[facility] Ltnpjsbcpp67[address] [place], [place] [address]Dr. Emelina Navarro GRAM NEG BACILLI Normal [facility] Comment on above: Performed By: #### S PUTGS ####[facility] Bwswtfrwqi39[address] [place], [place] [address]Dr. Emelina Navarro GRAM NEG DIPPLOCOCCI Normal [facility] Comment on above: Performed By: #### S PUTGS ####[facility] Rmeqxgmtyl[address] [place], [place] [address]Dr. Emelina Navarro GRAM POS BACILLI Normal [facility] Comment on above: Performed By: #### S PUTGS ####[facility] Rcxeckbwup10[address] [place] [address]Dr. Emelina Navarro GRAM POSITIVE COCCI RARE Normal [facility] Comment on above: Performed By: #### S PUTGS ####[facility] Zswmoxppcj5868 [place] [address]Dr. Emelina Navarro WBC (Bld) [#/Vol] 10*3/uL Normal [facility] Comment on above: Performed By: #### S PUTGS ####[facility] Yxqctulydy8889[address] [place], [place] [address]Dr. Emelina Navarro XR CHEST 1 Von 06-13-2022 XR CHEST 1 V Normal [facility] BNPon 06-12-2022 Natriuretic peptide B (Bld) [Mass/Vol] 6268.0 pg/mL Critically high <=900.0 [facility] Comment on above: Performed By: #### B OBSERVATION NURSE, CMP ####[facility] Vtubozhghk80[address] [place], [place] [address]Dr. Emelina Navarro CBC AUTO DIFFon 06-12-2022 BASO # 0.1 103/ul Normal 0.0-0.1 [facility] Comment on above: Performed By: #### C BC ####[facility] Pkbuymbqix[address] [place], [place] [address]Dr. Emelina Navarro Basophils/100 WBC (Bld) 0.3 % Normal 0.2-2.0 [facility] Comment on above: Performed By: #### C BC ####[facility] Inzcqzsfeb[address] [place], [place] [address]Dr. Emelina Navarro EO # 0.1 103/ul Normal 0.0-0.7 [facility] Comment on above: Performed By: #### C BC ####[facility] Yzcapxpjog[address] [place], [place] [address]Dr. Emelina Ramon Eosinophils/100 WBC (Bld) 0.4 % Critically low 0.9-7.0 [facility] Comment on above: Performed By: #### C BC ####[facility] Bqdessmwix[address] [place], [place] [address]Dr. Emelina Ramon Erythrocyte distribution width (RBC) [Ratio] 17.7 % Critically high 11.0-15.0 [facility] Comment on above: Performed By: #### C BC ####[facility] Xsbwzwqvhg1328 [place] [address]DrWesley Navarro Hematocrit (Bld) [Volume fraction] 44.4 % Normal 42.0-54.0 [facility] Comment on above: Performed By: #### C BC ####[facility] Hccfeknxdt7410 [place] [address]DrWesley Navarro Hemoglobin (Bld) [Mass/Vol] 14.3 g/dL Normal 14.0-18.0 [facility] Comment on above: Performed By: #### C BC ####[facility] G[address]kkvokzl[address] [place], [place] [address]DrWesley Navarro IG # 0.11 10e3/ul Critically high 0.00-0.[address] [facility] Comment on above: Performed By: #### C BC ####[facility] Nzffeimglp[address] [place], [place] [address]DrWesley Navarro IG % 0.5 % Normal 0.0-0.5 [facility] Comment on above: Performed By: #### C BC ####[facility] Aizpoifcxj[address] [place], [place] [address]DrWesley Navarro LYMPH # 1.7 103/ul Normal 1.2-3.8 [facility] Comment on above: Performed By: #### C BC ####[facility] Vwwjgnogif[address] [place], [place] [address]DrWesley Navarro Lymphocytes/100 WBC (Bld) 8.4 % Critically low 20.5-60.0 [facility] Comment on above: Performed By: #### C BC ####[facility] Ncqybrzbex[address] [place], [place] [address]DrWesley Navarro MANUAL DIFF REQ NO Normal [facility] Comment on above: Performed By: #### C BC ####[facility] Ueobtqkpkm99[address] [place], [place] [address]DrWesley Navarro MCH (RBC) [Entitic mass] 28.3 pg Normal 25.9-34.0 [facility] Comment on above: Performed By: #### C BC ####[facility] Pppurfknws6[address] [place] [address]DrWesley Navarro MCHC (RBC) [Mass/Vol] 32.2 g/dL Normal 29.9-35.2 [facility] Comment on above: Performed By: #### C BC ####[facility] Ztkupugfyu8985 [place] [address]DrWesley Navarro MCV (RBC) [Entitic vol] 87.9 fL Normal 80.0-94.0 [facility] Comment on above: Performed By: #### C BC ####[facility] Rohdvigggm[address] [place], [place] [address]DrWesley Navarro MONO # 1.4 103/ul Critically high 0.3-0.8 [facility] Comment on above: Performed By: #### C BC ####[facility] Hqhjzbqbgz[address] [place], [place] [address]DrWesley Navarro Monocytes/100 WBC (Bld) 7.1 % Normal 1.7-12.0 [facility] Comment on above: Performed By: #### C BC ####[facility] Pjenhdlthe[address] [place], [place] [address]DrWesley Navarro NEUT # 16.8 103/ul Critically high 1.4-6.5 [facility] Comment on above: Performed By: #### C BC ####[facility] Omlhdnffxw[address] [place], [place] [address]DrWesley Navarro Neutrophils/100 WBC (Bld) 83.3 % Critically high 43.0-75.0 [facility] Comment on above: Performed By: #### C BC ####[facility] Bcibayrufx7[address] [place], [place] [address]DrWesley Navarro Platelet mean volume (Bld) [Entitic vol] 10.0 fL Normal 9.5-13.5 [facility] Comment on above: Performed By: #### C BC ####[facility] Wnhixtebzu[address] [place], [place] [address]Dr. Emelina Navarro PLT 227 103/ul Normal 150-450 [facility] Comment on above: Performed By: #### C BC ####[facility] Zlvowpwztm0904 [place] [phone]. Emelina Navarro RBC 5.05 106/ul Normal 4.70-6.10 [facility] Comment on above: Performed By: #### C BC ####[facility] Ampssmamrn9449 [place] [phone]. Emelina Navarro WBC 20.2 103/ul Critically high 4.0-11.0 [facility] Comment on above: Performed By: #### C BC ####[facility] Qxsqlxwtpi9[address] [place] [address]Dr. Emelina Navarro CULTURE BLOODon 06-12-2022 Microscopic examination of blood, culture Culture Observations: NO GROWTH AT 5 DAYS. Normal [facility] Comment on above: Performed By: #### B LDCX2 ####[facility] Ktrvshzhap36[address] [place] [phone]. Emelina Navarro Microscopic examination of blood, culture Culture Observations: NO GROWTH AT 5 DAYS. Normal [facility] Comment on above: Performed By: #### B LDCX1 ####[facility] Vycuxufzqa1156 [place] [phone]. Emelina Navarro Covid-19 PCR (CVDTB)on 05-20 SARS-CoV-2 (COVID-19) RNA RADHA+probe Ql (Unsp spec) Not detected Normal NOT DETECTED [facility] Comment on above: Result Comment: [...] for this test is supported by the [employer] Manager of Health and Human Service's declaration that [...] be used). Performed By: #### C VDTB ####[facility] Bfcwaiayhr[address] [place], [place] [address]Dr. Emelina Navarro ER URINE PROFILEon 2 Bilirubin Ql (U) Negative Normal NEGATIVE [facility] Comment on above: Performed By: #### E RUR ####[facility] Zdcnyxzbva8885[address] [place], [place] [address]Dr. Emelina Navarro Clarity (U) CLEAR Normal CLEAR [facility] Comment on above: Performed By: #### E RUR ####[facility] Isoljiluee32[address] [place], [place] [address]Dr. Awildalan Navarro Color (U) YELLOW Normal YELLOW [facility] Comment on above: Performed By: #### E RUR ####[facility] Smpgmcmzpz25[address] [place], [place] [address]Dr. Emelina Navarro ERUAHD A micrscopic examina tion will be performed if indicated. Normal [facility] Comment on above: Performed By: #### E RUR ####[facility] Qdhdgjrelu44[address] [place], [place] [address]Dr. Awildalan Navarro Glucose Ql (U) >1000 Abnormal NEGATIVE The [facility] Comment on above: Performed By: #### E RUR ####[facility] Njuatwuumn5425[address] [place], [place] [address]Dr. Awildalan Navarro Hemoglobin Ql (U) Negative Normal NEGATIVE [facility] Comment on above: Performed By: #### E RUR ####[facility] Mtebvqvifv0[address] [place], [place] [address]Dr. Awildalan Navarro Ketones Ql (U) Negative Normal NEGATIVE [facility] Comment on above: Performed By: #### E RUR ####[facility] Pmpyuvtmbf[address] [place], [place] [address]Dr. Awildalan Navarro LEUKOCYTES Negative Normal NEGATIVE [facility] Comment on above: Performed By: #### E RUR ####[facility] Bquzllaffo[address] [place] [address]Dr. Awildanitza Ramon Nitrite Ql (U) Negative Normal NEGATIVE [facility] Comment on above: Performed By: #### E RUR ####[facility] Vqlldwartm2476 [place] [address]Dr. Emelina Navarro pH (U) 6.0 [pH] Normal 5-9 [facility] Comment on above: Performed By: #### E RUR ####[facility] Wyzmzmtuuh[address] [place], [place] [address]Dr. Emelina Navarro SPEC GRAVITY 1.010 Normal 1.005-<=1. 025 [facility] Comment on above: Performed By: #### E RUR ####[facility] Izacologuu06[address] [place], [place] [address]Dr. Emelina Navarro UA PROTEIN Negative Normal NEGATIVE/ TRACE [facility] Comment on above: Performed By: #### E RUR ####[facility] Weidyryhpc[address] [place], [place] [address]Dr. Emelina Navarro UR MICRO IND NOT INDICATED Normal [facility] Comment on above: Performed By: #### E RUR ####[facility] Fhhmkfmyim[address] [place], [place] [address]Dr. Emelina Navarro Urobilinogen Qn (U) 1.0 {Ashley'U}/dL Normal 0.2 - 1. 0 [facility] Comment on above: Performed By: #### E RUR ####[facility] Xauzmtngmi[address] [place], [place] [address]Dr. Emelina Navarro LACTATE/LACTIC ACIDon 2021 Lactate [Moles/Vol] 1.2 mmol/L Normal 0.4-1.[address] [facility] Comment on above: Performed By: #### L ACT ####[facility] Ievctihzrf33[address] [place], [place] [address]Dr. Emelina Navarro PROF 14(COMP METB)on Albumin [Mass/Vol] 3.4 g/dL Normal 3.4-5.0 [facility] Comment on above: Performed By: #### B OBSERVATION NURSE, CMP ####[facility] Lknylazawg7499 [place] [phone]. Emelina Navarro Albumin/Globulin [Mass ratio] 0.8 {ratio} Normal [facility] Comment on above: Performed By: #### B OBSERVATION NURSE, CMP ####[facility] Pgdaobsiin1419 [place], [place] [address]Ap. Emelina Navarro ALP [Catalytic activity/Vol] 100 U/L Normal 46-116 [facility] Comment on above: Performed By: #### B OBSERVATION NURSE, CMP ####[facility] Szutpjdvod0771 [place] [phone]. Emelina Navarro ALT [Catalytic activity/Vol] 26 U/L Normal 16-63 [facility] Comment on above: Performed By: #### B OBSERVATION NURSE, CMP ####[facility] Erkdgebtlo6630 [place] [phone]. Emelina Navarro Anion gap [Moles/Vol] 11.3 mmol/L Normal [facility] Comment on above: Performed By: #### B OBSERVATION NURSE, CMP ####[facility] Ekpfpttcjq0570 [place] [phone]. Emelina Navarro AST [Catalytic activity/Vol] 19 U/L Normal 15-37 [facility] Comment on above: Performed By: #### B OBSERVATION NURSE, CMP ####[facility] Enwzbcfefb5314 [place] [phone]. Emelina Navarro Bilirubin [Mass/Vol] 1.4 mg/dL Critically high 0.2-1.0 [facility] Comment on above: Performed By: #### B OBSERVATION NURSE, CMP ####[facility] Euubaqrupa2706 [place] [phone]. Emelina Navarro Calcium [Mass/Vol] 9.1 mg/dL Normal 8.5-10.1 [facility] Comment on above: Performed By: #### B OBSERVATION NURSE, CMP ####[facility] Whsafazjhi6518 [place] [phone]. Emelina Navarro Chloride [Moles/Vol] 103 mmol/L Normal 98-107 [facility] Comment on above: Performed By: #### B OBSERVATION NURSE, CMP ####[facility] Cqgygqwped3174 [place] [address]Dr. Awildanitza Ramon CO2 [Moles/Vol] 27.8 mmol/L Normal 21.0-32.0 [facility] Comment on above: Performed By: #### B OBSERVATION NURSE, CMP ####[facility] Dxzjvxiskq0[address] [place], [place] [address]Dr. Emelina Navarro Creatinine [Mass/Vol] 1.75 mg/dL Critically high 0.70-1.30 [facility] Comment on above: Performed By: #### B OBSERVATION NURSE, CMP ####[facility] Pnxuwklxeo[address] [place], [place] [address]Dr. Emelina Navarro EGFR-AF [place]IZ[place] 47 mL/min/1.73m2 Critically low >=60 [facility] Comment on above: Performed By: #### B OBSERVATION NURSE, CMP ####[facility] Cokujfgfez[address] [place], [place] [address]Dr. Emelina aNvarro EGFR-NON AF CITIZEN OF [place] 39 mL/min/1.73m2 Critically low >=60 [facility] Comment on above: Performed By: #### B OBSERVATION NURSE, CMP ####[facility] Tkrkwtauab[address] [place], [place] [address]Dr. Emelina Navarro Globulin (S) [Mass/Vol] 4.1 g/dL Normal [facility] Comment on above: Performed By: #### B OBSERVATION NURSE, CMP ####[facility] Xscxxmzhyr7[address] [place], [place] [address]Dr. Emelina Navarro Glucose [Mass/Vol] 120 mg/dL Critically high 74-106 [facility] Comment on above: Performed By: #### B OBSERVATION NURSE, CMP ####[facility] Ezypdecxmy[address] [place], [place] [address]Dr. Emelina Navarro Potassium [Moles/Vol] 4.1 mmol/L Normal 3.5-5.1 [facility] Comment on above: Performed By: #### B OBSERVATION NURSE, CMP ####[facility] Nzctdifnfy[address] [place], [place] [address]Dr. Emelina Navarro Protein [Mass/Vol] 7.5 g/dL Normal 6.4-8.2 [facility] Comment on above: Performed By: #### B OBSERVATION NURSE, CMP ####[facility] Cfazvwxuuh4258[address] [place], [place] [address]Dr. Emelina Navarro Sodium [Moles/Vol] 138 mmol/L Normal 136-145 [facility] Comment on above: Performed By: #### B OBSERVATION NURSE, CMP ####[facility] Fuphabhbjh2534[address] [place], [place] [address]Dr. Emelina Navarro Urea nitrogen [Mass/Vol] 24.0 mg/dL Critically high 7.0-18.0 [facility] Comment on above: Performed By: #### B OBSERVATION NURSE, CMP ####[facility] Mguoffhccy6927[address] [place], [place] [address]Dr. Emelina Navarro Urea nitrogen/Creatinine [Mass ratio] 13.7 mg/mg Normal [facility] Comment on above: Performed By: #### B OBSERVATION NURSE, CMP ####[facility] Poptalnmhb[address] [place], [place] [address]Dr. Emelina Navarro SPUTUM CULTUREon 05-11-2022 Epithelial cells LM Ql (Urine sed) Few Normal [facility] Comment on above: Performed By: #### C XSPTUM ####[facility] Vwopywyrvl[address] [place], [place] [address]Dr. Emelina Navarro Gram Stain Evaluation Comment Normal [facility] Comment on above: Result Comment: This specimen is of good quality and is acceptable for routinebacterial culture. Performed By: #### C XSPTUM ####[facility] [address]xhtcof[address] [place], [place] [id number]. Emelina Navarro Lower Respiratory Culture Final report Normal [facility] Comment on above: Performed By: #### C XSPTUM ####[facility] Gatafhqrjk7032[address] [place], [place] [address]Dr. Emelina Navarro Result 1 Comment Normal [facility] Comment on above: Result Comment: Few gram positive cocci Performed By: #### C XSPTUM ####[facility] Nvijzoykvl8[address] [place], [place] [address]Dr. Emelina Navarro Result Comment: Rout ine respiratory cedric Result 2 Normal [facility] Comment on above: Performed By: #### C XSPTUM ####[facility] Aprsvzwrml[address] [place], [place] [address]Dr. Emelina Navarro Result 3 Normal [facility] Comment on above: Performed By: #### C XSPTUM ####[facility] Wcaibevllh8034[address] [place], [place] [address]Dr. Emelina Navarro Result 4 Normal [facility] Comment on above: Performed By: #### C XSPTUM ####[facility] Svepeqiarq98[address] [place], [place] [address]Dr. Emelina Ramon White Blood Cells Few Normal [facility] Comment on above: Performed By: #### C XSPTUM ####[facility] Fxiivyblgq[address] [place], [place] [address]Dr. Emelina Ramon CBC W MANUAL DIFFon 05-10-20 22 ATYPICAL LYMPH # Normal [facility] Comment on above: Performed By: #### C BCMAN ####[facility] Rrrvjwkuoa97[address] [place], [place] [address]Dr. Emelina Navarro ATYPICAL LYMPH % Normal [facility] Comment on above: Performed By: #### C BCMAN ####[facility] Gmlkihftsx55[address] [place], [place] [address]Dr. Awildanitza Ramon BAND # 0.5 103/ul Critically high 0.0-0.3 [facility] Comment on above: Performed By: #### C BCMAN ####[facility] Gfhdboihky88[address] [place], [place] [address]Dr. Emelina Navarro BAND % 2 % Normal 0-5 [facility] Comment on above: Performed By: #### C BCMAN ####[facility] Zihwmdzfpv[address] [place], [place] [address]Dr. Awildanitza Ramon BASOM # 0.00 103/ul Normal 0.00-0.10 [facility] Comment on above: Performed By: #### C BCMAN ####[facility] Ijajbaczkg69[address] [place], [place] [address]Dr. Emelina Navarro BASOM % 0.0 % Critically low 0.2-2.[address] [facility] Comment on above: Performed By: #### C BCMAN ####[facility] [address]sp[address]xbcr[address] [place] [address]Dr. Emelina Navarro BLAST # Normal [facility] Comment on above: Performed By: #### C BCMAN ####[facility] Yaeoccvkbw7261 [place] [phone]. Emelina Navarro BLAST % Normal [facility] Comment on above: Performed By: #### C BCMAN ####[facility] Gfemfijvlu[address] [place] [address]Dr. Emelina Navarro CORRECTED WBC Normal 4.0-11.0 [facility] Comment on above: Performed By: #### C BCMAN ####[facility] Bpoxpftsin[address] [place], [place] [address]Dr. Emelina Navarro EOS # 0.24 103/ul Normal 0.00-0.70 [facility] Comment on above: Performed By: #### C BCMAN ####[facility] Qrgefldwqd[address] [place], [place] [address]Dr. Emelina Navarro EOS% 1.0 % Normal 0.9-7.0 [facility] Comment on above: Performed By: #### C BCMAN ####[facility] Dcnpautazm[address] [place], [place] [address]Dr. Emelina Navarro HCT 41.6 % Critically low 42.0-54.[address] [facility] Comment on above: Performed By: #### C BCMAN ####[facility] Xmrbripsbc[address] [place], [place] [address]Dr. Emelina Navarro HGB 13.2 g/dl Critically low 14.0-18.[address] [facility] Comment on above: Performed By: #### C BCMAN ####[facility] Ldpqmuvlvq[address] [place], [place] [address]Dr. Emelina Navarro LYMPHM # 0.71 103/ul Critically low 1.20-3.80 [facility] Comment on above: Performed By: #### C BCMAN ####[facility] Fkgqnvycbw6220 [place], [place] [address]Pi. Emelina Navarro LYMPHM% 3.0 % Critically low 20.5-60.[address] [facility] Comment on above: Performed By: #### C PURVI ####[facility] Tyzrvtuqgq37[address] [place] [phone]. Emelina Navarro MCH 28.3 pg Normal 25.9-34.0 [facility] Comment on above: Performed By: #### C PURVI ####[facility] Kijhuzvnrk2481 [place] [phone]. Emelina Navarro MCHC 31.7 g/dl Normal 29.9-35.2 [facility] Comment on above: Performed By: #### C PURVI ####[facility] Lcxujqmjvo5746 [place] [phone]. Emelina Navarro MCV 89.3 fL Normal 80.0-94.0 [facility] Comment on above: Performed By: #### C PURVI ####[facility] Syomlftfxr[address] [place] [phone]. Emelina Navarro METAMYELOCYTE # Normal [facility] Comment on above: Performed By: #### C PURVI ####[facility] Tiflywsvyg5050 [place] [phone]. Emelina Navarro METAMYELOCYTE % Normal [facility] Comment on above: Performed By: #### C PURVI ####[facility] Dsfbiyesdu6002 [place] [phone]. Emelina Navarro MONOM# 0.24 103/ul Critically low 0.30-0.80 [facility] Comment on above: Performed By: #### C PURVI ####[facility] Fgchquytqn3802 [place] [phone]. Emelina Navarro MONOM% 1.0 % Critically low 1.7-12.[address] [facility] Comment on above: Performed By: #### C PURVI ####[facility] Svelrbddae8602 [place] [phone]. Emelina Navarro MPV 9.7 fL Normal 9.5-13.5 [facility] Comment on above: Performed By: #### C PURVI ####[facility] [address]zycwuzr6[address] [place], [place] [address]Qo. Emelina Navarro MYELOCYTE # Normal [facility] Comment on above: Performed By: #### C PURVI ####[facility] Doznphmnwa2116 [place], [place] [address]Jm. Emelina Navarro MYELOCYTE % Normal [facility] Comment on above: Performed By: #### C PURVI ####[facility] Qatvphsaix5309 [place], [place] [address]Tn. Emelina Navarro NRBC Normal [facility] Comment on above: Performed By: #### C PURVI ####[facility] Zqzxjnkckv9621 [place] [phone]. Emelina Navarro PLT 192 103/ul Normal 150-450 [facility] Comment on above: Performed By: #### C PURVI ####[facility] Wyyqtgvaej6261 [place] [phone]. Emelina Navarro RBC 4.66 106/ul Critically low 4.70-6.10 [facility] Comment on above: Performed By: #### C PURVI ####[facility] Ugfvlqbrqa3236 [place] [phone]. Emelina Navarro RDW 16.1 % Critically high 11.0-15.0 [facility] Comment on above: Performed By: #### C PURVI ####[facility] Krjlhigabv6698 [place] [phone]. Emelina Navarro SEG # 21.95 103/ul Critically high 1.40-6.[address] [facility] Comment on above: Performed By: #### C PURVI ####[facility] Idlgdalxpo8649 [place] [phone]. Emelina Navarro SEG % 93.0 % Critically high 43.0-75.0 [facility] Comment on above: Performed By: #### C PURVI ####[facility] Dzmhwenfud2672 [place], [place] [address]Qk. Emelina Navarro WBC 23.6 103/ul Critically high 4.0-11.0 [facility] Comment on above: Performed By: #### C BCMAN ####[facility] Hbdeavckmg[address] [place] [address]Dr. Emelina Navarro CRPon 05-10-2022 CRP 2.3 mg/dL Critically high <=1.0 [facility] Comment on above: Performed By: #### C MP, HSTROPN, CRP ####[facility] Hngnxwmewc[address] [place] [address]Dr. Emelina Navarro DIGOXINon 05-10-2022 DIG 0.6 ng/mL Critically low 0.9-2.0 [facility] Comment on above: Performed By: #### D IG ####[facility] Boldxhatff[address] [place] [address]Dr. Emelina Navarro POINT OF CARE GLUCOSEon 04-20 Glucose [Mass/Vol] 246 mg/dL Critically high 74-106 [facility] Comment on above: Performed By: #### P OCGLUC ####[facility] Ulrqxqyakg0534 [place] [address]Dr. Emelina Navarro PROF 14(COMP METB)on 022 Albumin [Mass/Vol] 3.0 g/dL Critically low 3.4-5.0 [facility] Comment on above: Performed By: #### C MP, HSTROPN, CRP ####[facility] Dvlxagcele6433 [place] [address]Dr. Emelina Navarro Albumin/Globulin [Mass ratio] 0.7 {ratio} Normal [facility] Comment on above: Performed By: #### C MP, HSTROPN, CRP ####[facility] Eurgbafxqp[address] [place] [address]Dr. Emelina Navarro ALP [Catalytic activity/Vol] 95 U/L Normal 46-116 [facility] Comment on above: Performed By: #### C MP, HSTROPN, CRP ####[facility] [address]kgpmas[address] [place] [address]Dr. Emelina Navarro ALT [Catalytic activity/Vol] 75 U/L Critically high 16-63 [facility] Comment on above: Performed By: #### C MP, HSTROPN, CRP ####[facility] Gglvodaifr[address] [place] [address]Dr. Emelina Navarro Anion gap [Moles/Vol] 11.1 mmol/L Normal Th [facility] Comment on above: Performed By: #### C MP, HSTROPN, CRP ####[facility] Mtcrxhpcxz33[address] [place] [address]Dr. Emelina Navarro AST [Catalytic activity/Vol] 25 U/L Normal 15-37 [facility] Comment on above: Performed By: #### C MP, HSTROPN, CRP ####[facility] Tvjl[address] [place], [place] [address]Dr. Emelina Navarro Bilirubin [Mass/Vol] 0.4 mg/dL Normal 0.2-1.0 [facility] Comment on above: Performed By: #### C MP, HSTROPN, CRP ####[facility] Eugbfbtkhe[address] [place], [place] [address]Dr. Emelina Navarro Calcium [Mass/Vol] 8.3 mg/dL Critically low 8.5-10.1 [facility] Comment on above: Performed By: #### C MP, HSTROPN, CRP ####[facility] Rsjfkujgyg3[address] [place] [address]Dr. Emelina Naavrro Chloride [Moles/Vol] 100 mmol/L Normal 98-107 [facility] Comment on above: Performed By: #### C MP, HSTROPN, CRP ####[facility] Gxamkdykes[address] [place] [address]Dr. Emelina Navarro CO2 [Moles/Vol] 28.6 mmol/L Normal 21.0-32.0 [facility] Comment on above: Performed By: #### C MP, HSTROPN, CRP ####[facility] Twzdaxtfwr[address] [place] [address]Dr. Emelina Navarro Creatinine [Mass/Vol] 1.58 mg/dL Critically high 0.70-1.30 [facility] Comment on above: Performed By: #### C MP, HSTROPN, CRP ####[facility] Uozndlpstf76[address] [place] [address]Dr. Yilan Navarro EGFR-AF CITIZ[place] 53 mL/min/1.73m2 Critically low >=60 [facility] Comment on above: Performed By: #### C MP, HSTROPN, CRP ####[facility] Hdokrdxztl[address] [place] [address]Dr. Yilan Navarro EGFR-NON AF CITIZEN [place] 44 mL/min/1.73m2 Critically low >=60 [facility] Comment on above: Performed By: #### C MP, HSTROPN, CRP ####[facility] Gvuheeupdf50[address] [place] [address]Dr. Emelina Navarro Globulin (S) [Mass/Vol] 4.2 g/dL Normal [facility] Comment on above: Performed By: #### C MP, HSTROPN, CRP ####[facility] Llvhimxwsk[address] [place], [place] [address]Dr. Awildalan Navarro Glucose [Mass/Vol] 230 mg/dL Critically high 74-106 [facility] Comment on above: Performed By: #### C MP, HSTROPN, CRP ####[facility] Oja[address] [place], [place] [address]Dr. Awildalan Navarro Potassium [Moles/Vol] 4.7 mmol/L Normal 3.5-5.1 [facility] Comment on above: Performed By: #### C MP, HSTROPN, CRP ####[facility] Nrduwqqonb64[address] [place] [address]Dr. Awildalan Navarro Protein [Mass/Vol] 7.2 g/dL Normal 6.4-8.2 [facility] Comment on above: Performed By: #### C MP, HSTROPN, CRP ####[facility] Nvyykxeaah[address] [place] [address]Dr. Awildalan Navarro Sodium [Moles/Vol] 135 mmol/L Critically low 136-145 [facility] Comment on above: Performed By: #### C MP, HSTROPN, CRP ####[facility] Rnikpdoytz6036 [place] [id number]. Emelina Navarro Urea nitrogen [Mass/Vol] 45.0 mg/dL Critically high 7.0-18.0 [facility] Comment on above: Performed By: #### C MP, HSTROPN, CRP ####[facility] O[address]qakjzuh[address] [place] [address]Dr. Emelina Navarro Urea nitrogen/Creatinine [Mass ratio] 28.5 mg/mg Normal [facility] Comment on above: Performed By: #### C MP, HSTROPN, CRP ####[facility] Hhqfmfzuyy20[address] [place] [address]Dr. Emelina Navarro PROTIMEon 05-10-2022 INR Coag (PPP) [Relative time] 2.93 {INR} Normal [facility] Comment on above: Performed By: #### P T ####[facility] Ldlh[address]ipv[address] [place], [place] [address]Dr. Emelina Navarro INR GUIDELINES SEE BELOW Normal The [facility] Comment on above: Result Comment: WENDY RED INR: 2.0 - 3.0 CONDITIONS NOT LISTED BELOW 2.5 - 3.5 FOR PROSTHETIC HEART VALVE REPLACEMENT 2.5 - 3.5 RECURRENT THROMBOSIS Performed By: #### P T ####[facility] Recreqjlcy29[address] [place] [address]Dr. Emelina Navarro PT Coag (PPP) [Time] 29.5 s Critically high 9.0-11.6 [facility] Comment on above: Performed By: #### P T ####[facility] Oawcdmsfkt[address] [place], [place] [address]Dr. Awildanitza Navarro TROPONIN, HIGH SENSITIVITYon 05-10-2022 HSTROP 38.3 pg/mL Normal 4.0-76.1 [facility] Comment on above: Result Comment: CUT- OFF POINTS HAVE BEEN ESTABLISHED BASED ON THE FOURTH UNIVERSAL DEFINITIONS OF MYOCARDIALINFARCTION. THE UPPER REFERENCE LIMIT (URL) OF TROPONIN, DEFINED THE 99TH PERCENTILE OFcTnI DISTRIBUTION IN A REFERENCE POPULATION, HAS BEEN CONFIRMED THE DECISION THRESHOLDFOR [place] DIAGNOSIS. Performed By: #### C MP, HSTROPN, CRP ####[facility] Guyfhddknr4310 [place] [phone]. Emelina Ramon CBC AUTO DIFFon 05-09-2022 BASO # 0.0 103/ul Normal 0.0-0.1 [facility] Comment on above: Performed By: #### C BC ####[facility] Usiuqozbgb[address]99 [place] [phone]. Emelina Navarro Basophils/100 WBC (Bld) 0.1 % Critically low 0.2-2.0 [facility] Comment on above: Performed By: #### C BC ####[facility] Srghhwpzei[address] [place] [address]Dr. Emelina Navarro EO # 0.0 103/ul Normal 0.0-0.7 [facility] Comment on above: Performed By: #### C BC ####[facility] Bplxhygzcd1242 [place] [address]Dr. Emelina Navarro Eosinophils/100 WBC (Bld) 0.0 % Critically low 0.9-7.0 [facility] Comment on above: Performed By: #### C BC ####[facility] Ugigkhyjyt[address] [place], [place] [address]Dr. Emelina Navarro Erythrocyte distribution width (RBC) [Ratio] 15.9 % Critically high 11.0-15.0 [facility] Comment on above: Performed By: #### C BC ####[facility] Zow[address]nzdbr[address] [place], [place] [address]Dr. Emelina Navarro Hematocrit (Bld) [Volume fraction] 42.7 % Normal 42.0-54.0 [facility] Comment on above: Performed By: #### C BC ####[facility] Opkaqeehqm[address] [place] [address]Dr. Emelina Navarro Hemoglobin (Bld) [Mass/Vol] 13.5 g/dL Critically low 14.0-18.0 [facility] Comment on above: Performed By: #### C BC ####[facility] Iiwkiinpgo[address] [place], [place] [address]Dr. Emelina Navarro IG # 0.14 10e3/ul Critically high 0.00-0.[address] [facility] Comment on above: Performed By: #### C BC ####[facility] Vxpvsizxts5406 [place] [phone] Navarro IG % 0.8 % Critically high 0.0-0.5 [facility] Comment on above: Performed By: #### C BC ####[facility] Qzjtnkwimf[address]65 [place] [address]DrWesley Navarro LYMPH # 1.1 103/ul Critically low 1.2-3.8 [facility] Comment on above: Performed By: #### C BC ####[facility] Pzvresorkj[address] [place] [address]DrWesley Navarro Lymphocytes/100 WBC (Bld) 6.2 % Critically low 20.5-60.0 [facility] Comment on above: Performed By: #### C BC ####[facility] Kuxfobjjtq[address] [place] [address]DrWesley Naavrro MANUAL DIFF REQ NO Normal [facility] Comment on above: Performed By: #### C BC ####[facility] Fvlonkjgxq8395 [place] [address]DrWesley Awildanitza Navarro MCH (RBC) [Entitic mass] 28.5 pg Normal 25.9-34.0 [facility] Comment on above: Performed By: #### C BC ####[facility] Vyccwqhhmu6[address] [place] [address]DrWesley Navarro MCHC (RBC) [Mass/Vol] 31.6 g/dL Normal 29.9-35.2 [facility] Comment on above: Performed By: #### C BC ####[facility] [address]vahksejph[address] [place] [phone] Navarro MCV (RBC) [Entitic vol] 90.3 fL Normal 80.0-94.0 [facility] Comment on above: Performed By: #### C BC ####[facility] Cscyhhtqsa9713 [place] [address]DrWesley Navarro MONO # 0.4 103/ul Normal 0.3-0.8 [facility] Comment on above: Performed By: #### C BC ####[facility] Qfpgfsxzeg5950 [place] [address]Dr. Emelina Navarro Monocytes/100 WBC (Bld) 2.1 % Normal 1.7-12.0 [facility] Comment on above: Performed By: #### C BC ####[facility] Okmkjjfkxl4874 [place] [phone]. Emelina Navarro NEUT # 16.2 103/ul Critically high 1.4-6.5 [facility] Comment on above: Performed By: #### C BC ####[facility] Bpefmpvvmv8051 [place] [address]Dr. Emelina Navarro Neutrophils/100 WBC (Bld) 90.8 % Critically high 43.0-75.0 [facility] Comment on above: Performed By: #### C BC ####[facility] Eybjuooagb2511 [place] [address]Dr. Emelina Navarro Platelet mean volume (Bld) [Entitic vol] 10.2 fL Normal 9.5-13.5 [facility] Comment on above: Performed By: #### C BC ####[facility] Erlritadeb[address] [place], [place] [address]Dr. Emelina Navarro PLT 215 103/ul Normal 150-450 [facility] Comment on above: Performed By: #### C BC ####[facility] Sqzisolapi4425 [place] [address]Dr. Emelina Navarro RBC 4.73 106/ul Normal 4.70-6.10 [facility] Comment on above: Performed By: #### C BC ####[facility] Rgoewjmfhs8780 [place] [phone]. Emelina Navarro WBC 17.8 103/ul Critically high 4.0-11.0 [facility] Comment on above: Performed By: #### C BC ####[facility] Ccdqhbtdcd8682 [place] [phone]. Emelina Navarro CRPon 05-09-2022 CRP 4.4 mg/dL Critically high <=1.0 [facility] Comment on above: Performed By: #### C MP, HSTROPN, CRP ####[facility] Zpvopjoffi[address] [place] [address]Dr. Emelina Navarro DIGOXINon 05-09-2022 DIG 1.3 ng/mL Normal 0.9-2.0 [facility] Comment on above: Performed By: #### D IG ####[facility] Ytpvxqolak[address] [place] [address]Dr. Emelina Navarro POINT OF CARE GLUCOSEon 04-20 Glucose [Mass/Vol] 319 mg/dL Critically high 74-106 [facility] Comment on above: Performed By: #### P OCGLUC ####[facility] Lzolnuyrkq6356 [place] [address]Dr. Aiwldanitza Navarro Glucose [Mass/Vol] 259 mg/dL Critically high 74-106 [facility] Comment on above: Performed By: #### P OCGLUC ####[facility] Sck[address]mb[address]es[address] [place], [place] [address]Dr. Emelina Navarro Glucose [Mass/Vol] 564 mg/dL Critically high 74-106 [facility] Comment on above: Result Comment: NURS E NOTIFIED Performed By: #### P OCGLUC ####[facility] Bycqumpigt43[address] [place] [address]Dr. Emelina Navarro PROF 14(COMP METB)on 022 Albumin [Mass/Vol] 3.1 g/dL Critically low 3.4-5.0 [facility] Comment on above: Performed By: #### C MP, HSTROPN, CRP ####[facility] Ygvpgkfjfq0025 [place] [address]Dr. Emelina Navarro Albumin/Globulin [Mass ratio] 0.7 {ratio} Normal [facility] Comment on above: Performed By: #### C MP, HSTROPN, CRP ####[facility] Mhwoblpofa3909 [place] [address]Dr. Emelina Navarro ALP [Catalytic activity/Vol] 102 U/L Normal 46-116 [facility] Comment on above: Performed By: #### C MP, HSTROPN, CRP ####[facility] Ydefsctdbs8280 [place] [address]Dr. Emelina Navarro ALT [Catalytic activity/Vol] 81 U/L Critically high 16-63 [facility] Comment on above: Performed By: #### C MP, HSTROPN, CRP ####[facility] Ljjnhjfqnf4771 [place] [address]Dr. Emelina Navarro Anion gap [Moles/Vol] 12.3 mmol/L Normal Th [facility] Comment on above: Performed By: #### C MP, HSTROPN, CRP ####[facility] Doyoltwsmg3574 [place] [address]Dr. Emelina Navarro AST [Catalytic activity/Vol] 22 U/L Normal 15-37 [facility] Comment on above: Performed By: #### C MP, HSTROPN, CRP ####[facility] Zq[address]sy[address] [place], [place] [address]Dr. Emelina Navarro Bilirubin [Mass/Vol] 0.6 mg/dL Normal 0.2-1.0 [facility] Comment on above: Performed By: #### C MP, HSTROPN, CRP ####[facility] Nrxlntnfec[address] [place], [place] [address]Dr. Emelina Navarro Calcium [Mass/Vol] 8.6 mg/dL Normal 8.5-10.1 [facility] Comment on above: Performed By: #### C MP, HSTROPN, CRP ####[facility] Jifdzvldsw2078 [place] [address]Dr. Emelina Navarro Chloride [Moles/Vol] 100 mmol/L Normal 98-107 [facility] Comment on above: Performed By: #### C MP, HSTROPN, CRP ####[facility] Jghdtwnhcz[address] [place], [place] [address]Dr. Emelina Navarro CO2 [Moles/Vol] 28.4 mmol/L Normal 21.0-32.0 [facility] Comment on above: Performed By: #### C MP, HSTROPN, CRP ####[facility] Eiwswidyzp8175 [place] [address]Dr. Emelina Navarro Creatinine [Mass/Vol] 1.91 mg/dL Critically high 0.70-1.30 [facility] Comment on above: Performed By: #### C MP, HSTROPN, CRP ####[facility] Lrhphdbslm8209 [place] [address]Dr. Emelina Navarro EGFR-AF [place]IZ[place] 43 mL/min/1.73m2 Critically low >=60 [facility] Comment on above: Performed By: #### C MP, HSTROPN, CRP ####[facility] Zcyhbolxew3550 [place] [address]Dr. Emelina Navarro EGFR-NON AF [place]IZEN [place] 35 mL/min/1.73m2 Critically low >=60 [facility] Comment on above: Performed By: #### C MP, HSTROPN, CRP ####[facility] Xtdwkdgzxd9599 [place] [address]Dr. Emelina Navarro Globulin (S) [Mass/Vol] 4.6 g/dL Normal [facility] Comment on above: Performed By: #### C MP, HSTROPN, CRP ####[facility] Xomjanxlrl[address] [place], [place] [address]Dr. Emelina Navarro Glucose [Mass/Vol] 242 mg/dL Critically high 74-106 [facility] Comment on above: Performed By: #### C MP, HSTROPN, CRP ####[facility] Uxokzxx[address] [place], [place] [address]Dr. Emelina Navarro Potassium [Moles/Vol] 4.7 mmol/L Normal 3.5-5.1 [facility] Comment on above: Performed By: #### C MP, HSTROPN, CRP ####[facility] [address]zbrzutl[address] [place], [place] [address]Dr. Emelina Navarro Protein [Mass/Vol] 7.7 g/dL Normal 6.4-8.2 [facility] Comment on above: Performed By: #### C MP, HSTROPN, CRP ####[facility] Vtjspfkelp8985 [place] [address]Dr. Emelina Navarro Sodium [Moles/Vol] 136 mmol/L Normal 136-145 [facility] Comment on above: Performed By: #### C MP, HSTROPN, CRP ####[facility] Ztbwsckebi5433 [place] [address]Dr. Emelina Navarro Urea nitrogen [Mass/Vol] 48.0 mg/dL Critically high 7.0-18.0 [facility] Comment on above: Performed By: #### C MP, HSTROPN, CRP ####[facility] Kbksvwkxtj4[address] [place] [address]Dr. Emelina Navarro Urea nitrogen/Creatinine [Mass ratio] 25.1 mg/mg Normal [facility] Comment on above: Performed By: #### C MP, HSTROPN, CRP ####[facility] Poywacgith[address] [place] [address]Dr. Emelina Navarro PROTIMEon 05-09-2022 INR Coag (PPP) [Relative time] 2.59 {INR} Normal [facility] Comment on above: Performed By: #### P T ####[facility] Whunormtso[address] [place], [place] [address]Dr. Emelina Navarro INR GUIDELINES SEE BELOW Normal [facility] Comment on above: Result Comment: WENDY RED INR: 2.0 - 3.0 CONDITIONS NOT LISTED BELOW 2.5 - 3.5 FOR PROSTHETIC HEART VALVE REPLACEMENT 2.5 - 3.5 RECURRENT THROMBOSIS Performed By: #### P T ####[facility] [address]bvugikc[address] [place], [place] [address]Dr. Emelina Navarro PT Coag (PPP) [Time] 26.3 s Critically high 9.0-11.6 [facility] Comment on above: Performed By: #### P T ####[facility] [address]mqciaur[address] [place], [place] [address]Dr. Emelina Navarro TROPONIN, HIGH SENSITIVITYon 05-09-2022 HSTROP 45.4 pg/mL Normal 4.0-76.1 [facility] Comment on above: Result Comment: CUT- OFF POINTS HAVE BEEN ESTABLISHED BASED ON THE FOURTH UNIVERSAL DEFINITIONS OF MYOCARDIALINFARCTION. THE UPPER REFERENCE LIMIT (URL) OF TROPONIN, DEFINED THE 99TH PERCENTILE OFcTnI DISTRIBUTION IN A REFERENCE POPULATION, HAS BEEN CONFIRMED THE DECISION THRESHOLDFOR [place] DIAGNOSIS. Performed By: #### C MP, HSTROPN, CRP ####[facility] Wmjxibcbnl2140 [place] [phone]. Emelina Navarro XR FOOT RT MIN 3 VIEWSon 2 XR FOOT RT MIN 3 VIEWS Normal Th e [facility] CARDIAC IMTIAZ 3-6on 2 CK [Catalytic activity/Vol] 34 U/L Critically low 39-308 [facility] Comment on above: Performed By: #### C MREP ####[facility] Ehasgbjrbr[address] [place] [address]Dr. Emelina Navarro CK.MB [Mass/Vol] 3.37 ng/mL Normal <=3.60 [facility] Comment on above: Performed By: #### C MREP ####[facility] Qlnzbphoig0261 [place] [address]Dr. Emelina Navarro HSTROP 53.5 pg/mL Normal 4.0-76.1 [facility] Comment on above: Result Comment: CUT- OFF POINTS HAVE BEEN ESTABLISHED BASED ON THE FOURTH UNIVERSAL DEFINITIONS OF MYOCARDIALINFARCTION. THE UPPER REFERENCE LIMIT (URL) OF TROPONIN, DEFINED THE 99TH PERCENTILE OFcTnI DISTRIBUTION IN A REFERENCE POPULATION, HAS BEEN CONFIRMED THE DECISION THRESHOLDFOR [place] DIAGNOSIS. Performed By: #### C MREP ####[facility] Xzsocqrlde[address] [place] [address]Dr. Emelina Navarro CK [Catalytic activity/Vol] 39 U/L Normal 39-308 [facility] Comment on above: Performed By: #### C MREP ####[facility] Zvtryfxpll5732 [place] [phone]. Emelina Navarro CK.MB [Mass/Vol] 2.74 ng/mL Normal <=3.60 [facility] Comment on above: Performed By: #### C MREP ####[facility] Nvdjdnapyc1022 [place] [id number]. Emelina Navarro HSTROP 68.7 pg/mL Normal 4.0-76.1 [facility] Comment on above: Result Comment: CUT- OFF POINTS HAVE BEEN ESTABLISHED BASED ON THE FOURTH UNIVERSAL DEFINITIONS OF MYOCARDIALINFARCTION. THE UPPER REFERENCE LIMIT (URL) OF TROPONIN, DEFINED THE 99TH PERCENTILE OFcTnI DISTRIBUTION IN A REFERENCE POPULATION, HAS BEEN CONFIRMED THE DECISION THRESHOLDFOR [place] DIAGNOSIS. Performed By: #### C MREP ####[facility] Tesiltzkjh3873 [place] [address]Dr. Emelina Navarro CARDIAC IMTIAZ ADMITon 022 CK [Catalytic activity/Vol] 30 U/L Critically low 39-308 [facility] Comment on above: Performed By: #### SHIVAM Mcgee MP ####[facility] [address]ht[address]ja[address] [place], [place] [address]Dr. Emelina Navarro CK.MB [Mass/Vol] 2.88 ng/mL Normal <=3.60 [facility] Comment on above: Performed By: #### SHIVAM Mcgee MP ####[facility] [address]emwrkzgl[address] [place], [place] [address]Dr. Emelina Navarro HSTROP 69.9 pg/mL Normal 4.0-76.1 [facility] Comment on above: Result Comment: CUT- OFF POINTS HAVE BEEN ESTABLISHED BASED ON THE FOURTH UNIVERSAL DEFINITIONS OF MYOCARDIALINFARCTION. THE UPPER REFERENCE LIMIT (URL) OF TROPONIN, DEFINED THE 99TH PERCENTILE OFcTnI DISTRIBUTION IN A REFERENCE POPULATION, HAS BEEN CONFIRMED THE DECISION THRESHOLDFOR [place] DIAGNOSIS. Performed By: #### SHIVAM Mcgee MP ####[facility] Rkxkpcqdjv0556 [place] [address]Dr. Emelina Navarro URBANO 79 ng/mL Normal 16-96 [facility] Comment on above: Performed By: #### SHIVAM Mcgee MP ####[facility] Taqiuhgmbz27[address] [place] [address]Dr. Emelina Navarro CBC AUTO DIFFon 05-08-2022 BASO # 0.0 103/ul Normal 0.0-0.1 [facility] Comment on above: Performed By: #### C BC ####[facility] Hbsipjzkno4[address] [place] [address]Dr. Emelina Navarro Basophils/100 WBC (Bld) 0.2 % Normal 0.2-2.0 [facility] Comment on above: Performed By: #### C BC ####[facility] Srsziboyxd7306 [place] [address]Dr. Emelina Navarro EO # 0.2 103/ul Normal 0.0-0.7 [facility] Comment on above: Performed By: #### C BC ####[facility] Mfycvrnkvm3696 [place] [address]Dr. Emelina Navarro Eosinophils/100 WBC (Bld) 1.3 % Normal 0.9-7.0 [facility] Comment on above: Performed By: #### C BC ####[facility] [address] [place], [place] [id number]. Emelina Navarro Erythrocyte distribution width (RBC) [Ratio] 16.2 % Critically high 11.0-15.0 [facility] Comment on above: Performed By: #### C BC ####[facility] Cnyywnnbcr[address] [place], [place] [address]Dr. Eemlina Navarro Hematocrit (Bld) [Volume fraction] 43.8 % Normal 42.0-54.0 [facility] Comment on above: Performed By: #### C BC ####[facility] Ejosalikbb[address] [place], [place] [address]Dr. Emelina Navarro Hemoglobin (Bld) [Mass/Vol] 13.9 g/dL Critically low 14.0-18.0 [facility] Comment on above: Performed By: #### C BC ####[facility] Wmekvoasnk[address] [place] [address]Dr. Emelina Navarro IG # 0.17 10e3/ul Critically high 0.00-0.03 [facility] Comment on above: Performed By: #### C BC ####[facility] Smdsmuldjl[address] [place], [place] [address]Dr. Emelina Navarro IG % 1.0 % Critically high 0.0-0.5 [facility] Comment on above: Performed By: #### C BC ####[facility] Lyvuykpclo77[address] [place] [phone]. Emelina Navarro LYMPH # 1.1 103/ul Critically low 1.2-3.[address] [facility] Comment on above: Performed By: #### C BC ####[facility] Pzdyrfepzv8016 [place] [phone]. Emelina Navarro Lymphocytes/100 WBC (Bld) 6.5 % Critically low 20.5-60.0 [facility] Comment on above: Performed By: #### C BC ####[facility] Jixgcjlmtt59[address] [place] [address]Dr. Emelina Navarro MANUAL DIFF REQ NO Normal [facility] Comment on above: Performed By: #### C BC ####[facility] Fgzgzckhcc7586 [place] [address]Dr. Emelina Navarro MCH (RBC) [Entitic mass] 28.8 pg Normal 25.9-34.0 [facility] Comment on above: Performed By: #### C BC ####[facility] Zocajsialf6[address] [place], [place] [address]Dr. Emelina Navarro MCHC (RBC) [Mass/Vol] 31.7 g/dL Normal 29.9-35.2 [facility] Comment on above: Performed By: #### C BC ####[facility] Nifkftjyrp7[address] [place] [address]Dr. Emelina Navarro MCV (RBC) [Entitic vol] 90.9 fL Normal 80.0-94.0 [facility] Comment on above: Performed By: #### C BC ####[facility] Pvrtuqkvds6[address] [place] [address]Dr. Emelina Navarro MONO # 1.4 103/ul Critically high 0.3-0.8 [facility] Comment on above: Performed By: #### C BC ####[facility] Qlywtgsaqm13[address] [place], [place] [address]Dr. Emelina Navarro Monocytes/100 WBC (Bld) 8.5 % Normal 1.7-12.0 [facility] Comment on above: Performed By: #### C BC ####[facility] Weryqglbsc9020 [place] [phone]. Emelina Navarro NEUT # 13.9 103/ul Critically high 1.4-6.5 [facility] Comment on above: Performed By: #### C BC ####[facility] Vhpvxchtao7671 [place] [phone]. Emelina Navarro Neutrophils/100 WBC (Bld) 82.5 % Critically high 43.0-75.0 The [facility] Comment on above: Performed By: #### C BC ####[facility] Giahaqwfvq4565 [place] [phone]. Emelina Navarro Platelet mean volume (Bld) [Entitic vol] 9.8 fL Normal 9.5-13.5 The [facility] Comment on above: Performed By: #### C BC ####[facility] Oaohhkcotm5983 [place] [phone]. Emelina Navarro PLT 214 103/ul Normal 150-450 The [facility] Comment on above: Performed By: #### C BC ####[facility] Euwnxgsoyr[address] [place] [phone]. Emelina Navarro RBC 4.82 106/ul Normal 4.70-6.10 The [facility] Comment on above: Performed By: #### C BC ####[facility] Ioaeckfcvi6582 [place] [phone]. Emelina Navarro WBC 16.8 103/ul Critically high 4.0-11.0 [facility] Comment on above: Performed By: #### C BC ####[facility] Rjgurotaxd5739 [place] [phone]. Emelina Navarro CRPon 05-08-2022 CRP 2.5 mg/dL Critically high <=1.0 [facility] Comment on above: Performed By: #### C RP ####[facility] Xhxayvbowh[address] [place], [place] [address]Dr. Emelina Navarro Covid-19 PCR (CVDTBH)on 04-20 SARS-CoV-2 (COVID-19) RNA RADHA+probe Ql (Unsp spec) Detected Critically abnormal NOT DETECTED The [facility] Comment on above: Result Comment: This test is not yet approved or cleared by the [place] FDA. When there are no FDA-approved or cleared tests available, and other criteria are met, FDA can make tests available under an emergency access mechanism called an Emergency Use Authorization (EUA). The EUA for this test is supported by the [place] of Health and Human Service's declaration that [...] be used). Performed By: #### C VDTBH ####[facility] Tgwxlwwxac97[address] [place], [place] [address]Dr. Emelina Navarro DIGOXINon 05-08-2022 DIG 0.9 ng/mL Normal 0.9-2.0 The [facility] Comment on above: Performed By: #### D IG ####[facility] Lyxvatycvw3[address] [place], [place] [address]Dr. Emelina Navarro LACTATE/LACTIC ACIDon 2021 Lactate [Moles/Vol] 1.6 mmol/L Normal 0.4-1.[address] [facility] Comment on above: Performed By: #### L ACT ####[facility] Gjgvjtduvt[address] [place], [place] [address]Dr. Emelina Navarro Lactate [Moles/Vol] 1.3 mmol/L Normal 0.4-1.[address] [facility] Comment on above: Performed By: #### L ACT ####[facility] Yjaahpvnwr[address] [place], [place] [address]Dr. Emelina Navarro POINT OF CARE GLUCOSEon 04-20 Glucose [Mass/Vol] 244 mg/dL Critically high -106 [facility] Comment on above: Performed By: #### P OCGLUC ####[facility] Dwtieaxgsd[address] [place], [place] [address]Dr. Emelina Navarro Glucose [Mass/Vol] 405 mg/dL Critically high 74-106 [facility] Comment on above: Performed By: #### P OCGLUC ####[facility] Jeedduvile2234 [place] [phone]. Awildanitza Navarro Glucose [Mass/Vol] 352 mg/dL Critically high 74-106 [facility] Comment on above: Performed By: #### P OCGLUC ####[facility] Mwrrhbfiic6377 [place] [phone]. Emelina Navarro Glucose [Mass/Vol] 285 mg/dL Critically high 74-106 [facility] Comment on above: Performed By: #### P OCGLUC ####[facility] Njyqxhvaau2107 [place] [address]Dr. Emelina Navarro PROF CHEM 8 (BAS METB)on Anion gap [Moles/Vol] 13.7 mmol/L Normal [facility] Comment on above: Performed By: #### B MP ####[facility] Rmizuclqst0[address] [place], [place] [address]Dr. Emelina Navarro Calcium [Mass/Vol] 8.4 mg/dL Critically low 8.5-10.1 [facility] Comment on above: Performed By: #### B MP ####[facility] Hfzlosfewd12[address] [place], [place] [address]Dr. Emelina Navarro Chloride [Moles/Vol] 93 mmol/L Critically low 98-107 [facility] Comment on above: Performed By: #### B MP ####[facility] Wyjlygowrv0[address] [place], [place] [address]Dr. Emelina Navarro CO2 [Moles/Vol] 26.4 mmol/L Normal 21.0-32.0 [facility] Comment on above: Performed By: #### B MP ####[facility] Lonhyakpdu2[address] [place], [place] [address]Dr. Emelina Navarro Creatinine [Mass/Vol] 2.23 mg/dL Critically high 0.70-1.30 [facility] Comment on above: Performed By: #### B MP ####[facility] Gnlsmmbshl17[address] [place], [place] [address]Dr. Emelina Navarro EGFR-AF CITIZ[place] 36 mL/min/1.73m2 Critically low >=60 [facility] Comment on above: Performed By: #### B MP ####[facility] Myyngvnprh9821 [place] [phone]. Emelina Navarro EGFR-NON AF CITIZEN [place] 30 mL/min/1.73m2 Critically low >=60 [facility] Comment on above: Performed By: #### B MP ####[facility] Slepxqygmv0580 [place] [phone]. Emelina Navarro Glucose [Mass/Vol] 451 mg/dL Critically high 74-106 [facility] Comment on above: Performed By: #### B MP ####[facility] Anhxbsfzlx9294 [place] [address]Dr. Emelina Navarro Potassium [Moles/Vol] 5.1 mmol/L Normal 3.5-5.1 [facility] Comment on above: Performed By: #### B MP ####[facility] Ibokxzmmqz[address] [place], [place] [address]Dr. Emelina Navarro Sodium [Moles/Vol] 128 mmol/L Critically low 136-145 [facility] Comment on above: Performed By: #### B MP ####[facility] Xgomytcvvy4094[address] [place], [place] [address]Dr. Emelina Navarro Urea nitrogen [Mass/Vol] 40.0 mg/dL Critically high 7.0-18.0 [facility] Comment on above: Performed By: #### B MP ####[facility] Qbbxrezakj[address] [place], [place] [address]Dr. Emelina Navarro Urea nitrogen/Creatinine [Mass ratio] 17.9 mg/mg Normal [facility] Comment on above: Performed By: #### B MP ####[facility] Dhousttaog[address] [place], [place] [id number]. Emelina Navarro Anion gap [Moles/Vol] 13.7 mmol/L Normal [facility] Comment on above: Performed By: #### B MP, CMADM ####[facility] Lbixdcrzma[address] [place], [place] [id number]. Emelina Navarro Calcium [Mass/Vol] 8.5 mg/dL Normal 8.5-10.1 [facility] Comment on above: Performed By: #### B SHIVAM PRAJAPATI ####[facility] Jkvcbwsbxi2199 [place] [address]Dr. Emelina Navarro Chloride [Moles/Vol] 98 mmol/L Normal 98-107 [facility] Comment on above: Performed By: #### B SHIVAM PRAJAPATI ####[facility] Yxjpcysjzx9381 [place] [address]Dr. Emelina Navarro CO2 [Moles/Vol] 25.0 mmol/L Normal 21.0-32.0 [facility] Comment on above: Performed By: #### B SHIVAM PRAJAPATI ####[facility] Fyluskmvtm[address] [place], [place] [address]Dr. Emelina Navarro Creatinine [Mass/Vol] 1.97 mg/dL Critically high 0.70-1.30 [facility] Comment on above: Performed By: #### SHIVAM Mcgee MP ####[facility] Phkcrzkkdq[address] [place], [place] [address]Dr. Emelina Navarro EGFR-AF [place]IZ[place] 41 mL/min/1.73m2 Critically low >=60 [facility] Comment on above: Performed By: #### SHIVAM Mcgee MP ####[facility] Cgcqqmmjtn[address] [place], [place] [address]Dr. Emelina Navarro EGFR-NON AF [place]IZ[place] 34 mL/min/1.73m2 Critically low >=60 [facility] Comment on above: Performed By: #### SHIVAM Mcgee MP ####[facility] Myfdhhzbwx5637 [place] [address]Dr. Emelina Navarro Glucose [Mass/Vol] 239 mg/dL Critically high 74-106 [facility] Comment on above: Performed By: #### SHIVAM Mcgee MP ####[facility] Vigmgasotn24[address] [place], [place] [address]Dr. Awildanitza Navarro Potassium [Moles/Vol] 5.7 mmol/L Critically high 3.5-5.1 [facility] Comment on above: Performed By: #### SHIAVM Mcgee MP ####[facility] Sbkwaxgyen5530 [place] [phone]. Emelina Navarro Sodium [Moles/Vol] 131 mmol/L Critically low 136-145 Th e [facility] Comment on above: Performed By: #### B SHIVAM PRAJAPATI ####[facility] Dafikqiewz9186 [place] [address]Dr. Emelina Navarro Urea nitrogen [Mass/Vol] 37.0 mg/dL Critically high 7.0-18.0 [facility] Comment on above: Performed By: #### B VICTORINA, SHIVAM ####[facility] Rouivpcwir4150 [place] [address]Dr. Emelina Navarro Urea nitrogen/Creatinine [Mass ratio] 18.8 mg/mg Normal [facility] Comment on above: Performed By: #### B SHIVAM PRAJAPATI ####[facility] Wymewakwmp3307 [place] [address]Dr. Emelina Navarro PROTIMEon 05-08-2022 INR Coag (PPP) [Relative time] 2.28 {INR} Normal [facility] Comment on above: Performed By: #### P T ####[facility] Awhvmlqgai38[address] [place] [address]Dr. Emelina Navarro INR GUIDELINES SEE BELOW Normal [facility] Comment on above: Result Comment: WENDY RED INR: 2.0 - 3.0 CONDITIONS NOT LISTED BELOW 2.5 - 3.5 FOR PROSTHETIC HEART VALVE REPLACEMENT 2.5 - 3.5 RECURRENT THROMBOSIS Performed By: #### P T ####[facility] Kmjrunmvtf[address] [place], [place] [address]Dr. Emelina Navarro PT Coag (PPP) [Time] 23.3 s Critically high 9.0-11.6 [facility] Comment on above: Performed By: #### P T ####[facility] Waelfqwrpb40[address] [place], [place] [address]Dr. Emelina Navarro US FERNY DOP LEG LTon 05-08-20 US FERNY DOP LEG LT Normal [facility] XR CHEST 1 Von 05-08-2022 XR CHEST 1 V Normal [facility] CBC AUTO DIFFon 05-02-2022 BASO # 0.0 103/ul Normal 0.0-0.1 [facility] Comment on above: Performed By: #### C BC ####[facility] Ykflavmram9097 [place] [address]DrWesley Navarro Basophils/100 WBC (Bld) 0.2 % Normal 0.2-2.0 [facility] Comment on above: Performed By: #### C BC ####[facility] Ugyzvtvuip[address] [place], [place] [address]DrWesley Navarro EO # 0.0 103/ul Normal 0.0-0.7 [facility] Comment on above: Performed By: #### C BC ####[facility] Uopekchpbg09[address] [place], [place] [address]DrWesley Navarro Eosinophils/100 WBC (Bld) 0.2 % Critically low 0.9-7.0 [facility] Comment on above: Performed By: #### C BC ####[facility] Rcgxiunkde37[address] [place], [place] [address]DrWesley Navarro Erythrocyte distribution width (RBC) [Ratio] 16.5 % Critically high 11.0-15.0 [facility] Comment on above: Performed By: #### C BC ####[facility] Ypryvijmbi09[address] [place], [place] [address]DrWesley Navarro Hematocrit (Bld) [Volume fraction] 42.0 % Normal 42.0-54.0 [facility] Comment on above: Performed By: #### C BC ####[facility] Cisggvtzav0[address] [place], [place] [address]DrWesley Navarro Hemoglobin (Bld) [Mass/Vol] 13.3 g/dL Critically low 14.0-18.0 [facility] Comment on above: Performed By: #### C BC ####[facility] Kggnmvzkil5394[address] [place], [place] [address]DrWesley Navarro IG # 0.14 10e3/ul Critically high 0.00-0.[address] [facility] Comment on above: Performed By: #### C BC ####[facility] Nwetybxbwz[address] [place], [place] [address]DrWesley Navarro IG % 1.1 % Critically high 0.0-0.5 [facility] Comment on above: Performed By: #### C BC ####[facility] Rxwegvropb6120 [place] [address]DrWesley Navarro LYMPH # 1.3 103/ul Normal 1.2-3.8 [facility] Comment on above: Performed By: #### C BC ####[facility] Tkdocwlvsh8220 [place] [address]DrWesley Navarro Lymphocytes/100 WBC (Bld) 9.8 % Critically low 20.5-60.0 [facility] Comment on above: Performed By: #### C BC ####[facility] Yezsopdaoc[address] [place], [place] [address]DrWesley Navarro MANUAL DIFF REQ NO Normal [facility] Comment on above: Performed By: #### C BC ####[facility] Stksajkwcb5034 [place] [address]DrWesley Navarro MCH (RBC) [Entitic mass] 28.9 pg Normal 25.9-34.0 [facility] Comment on above: Performed By: #### C BC ####[facility] Tyunlrmqsz[address] [place], [place] [address]DrWesley Navarro MCHC (RBC) [Mass/Vol] 31.7 g/dL Normal 29.9-35.2 [facility] Comment on above: Performed By: #### C BC ####[facility] Kmmiesysli0337 [place] [address]DrWesley Navarro MCV (RBC) [Entitic vol] 91.1 fL Normal 80.0-94.0 [facility] Comment on above: Performed By: #### C BC ####[facility] Apfsqqjnpg8766 [place] [address]DrWesley Navarro MONO # 1.2 103/ul Critically high 0.3-0.8 [facility] Comment on above: Performed By: #### C BC ####[facility] Dwedkcruzm0[address] [place], [place] [address]DrWesley Navarro Monocytes/100 WBC (Bld) 9.6 % Normal 1.7-12.0 [facility] Comment on above: Performed By: #### C BC ####[facility] Kdedpytexd9007 [place] [phone]. Emelina Navarro NEUT # 10.1 103/ul Critically high 1.4-6.5 [facility] Comment on above: Performed By: #### C BC ####[facility] Oonwlyzjkq3693 [place] [phone]. Emelina Navarro Neutrophils/100 WBC (Bld) 79.1 % Critically high 43.0-75.0 [facility] Comment on above: Performed By: #### C BC ####[facility] Juxekfcozi026[address] [place] [address]Dr. Emelina Navarro Platelet mean volume (Bld) [Entitic vol] 10.0 fL Normal 9.5-13.5 [facility] Comment on above: Performed By: #### C BC ####[facility] Crssjispsa6175 [place] [phone]. Emelina Navarro PLT 188 103/ul Normal 150-450 [facility] Comment on above: Performed By: #### C BC ####[facility] Vgyucydifc4072 [place] [phone]. Emelina Navarro RBC 4.61 106/ul Critically low 4.70-6.10 [facility] Comment on above: Performed By: #### C BC ####[facility] Ptjudtxqoz0518 [place] [phone]. Emelina Navarro WBC 12.8 103/ul Critically high 4.0-11.0 [facility] Comment on above: Performed By: #### C BC ####[facility] Fletcbgatp6358 [place] [phone]. Emelina Navarro NM HEPATOBILIARY SCAN W EFon 05-02-2022 NM HEPATOBILIARY SCAN W EF Normal [facility] PROF 14(COMP METB)on 022 Albumin [Mass/Vol] 2.7 g/dL Critically low 3.4-5.0 [facility] Comment on above: Performed By: #### C MP ####[facility] Qslpqgzlmw8659 [place] [address]Dr. Emelina Ramon Albumin/Globulin [Mass ratio] 0.7 {ratio} Normal [facility] Comment on above: Performed By: #### C MP ####[facility] Ievxpojrnu8447 [place] [address]Dr. Emelina Navarro ALP [Catalytic activity/Vol] 65 U/L Normal 46-116 [facility] Comment on above: Performed By: #### C MP ####[facility] Mqgnmzsyof4749 [place] [address]Dr. Emelina Navarro ALT [Catalytic activity/Vol] 406 U/L Critically high 16-63 [facility] Comment on above: Performed By: #### C MP ####[facility] Vzcvymdres[address] [place], [place] [address]Dr. Emelina Navarro Anion gap [Moles/Vol] 8.1 mmol/L Normal [facility] Comment on above: Performed By: #### C MP ####[facility] Hcqltnfgar[address] [place], [place] [address]Dr. Emelina Navarro AST [Catalytic activity/Vol] 101 U/L Critically high 15-37 [facility] Comment on above: Performed By: #### C MP ####[facility] Fxoilteqin[address] [place], [place] [address]Dr. Emelina Navarro Bilirubin [Mass/Vol] 0.6 mg/dL Normal 0.2-1.0 [facility] Comment on above: Performed By: #### C MP ####[facility] Azdydcoccf[address] [place], [place] [address]Dr. Emelina Navarro Calcium [Mass/Vol] 7.7 mg/dL Critically low 8.5-10.1 [facility] Comment on above: Performed By: #### C MP ####[facility] Hkaznuvvqe[address] [place], [place] [address]Dr. Emelina Navarro Chloride [Moles/Vol] 104 mmol/L Normal 98-107 [facility] Comment on above: Performed By: #### C MP ####[facility] Cfenntnigw8007 [place] [phone]. Emelina Navarro CO2 [Moles/Vol] 30.9 mmol/L Normal 21.0-32.0 [facility] Comment on above: Performed By: #### C MP ####[facility] Dtpisxanzs4922 [place] [phone]. Emelina Navarro Creatinine [Mass/Vol] 1.54 mg/dL Critically high 0.70-1.30 [facility] Comment on above: Performed By: #### C MP ####[facility] Zuoxwswdti5242 [place] [phone]. Emelina Navarro EGFR-AF [place]IZ[place] 55 mL/min/1.73m2 Critically low >=60 [facility] Comment on above: Performed By: #### C MP ####[facility] Qaejqsnnrs[address]83 [place] [address]Dr. Emelina Ramon EGFR-NON AF CITIZEN [place] 45 mL/min/1.73m2 Critically low >=60 [facility] Comment on above: Performed By: #### C MP ####[facility] Hkpsobbadg2646 [place] [phone]. Emelina Navarro Globulin (S) [Mass/Vol] 3.8 g/dL Normal [facility] Comment on above: Performed By: #### C MP ####[facility] Centegtgca5495 [place] [address]Dr. Emelina Navarro Glucose [Mass/Vol] 177 mg/dL Critically high 74-106 [facility] Comment on above: Performed By: #### C MP ####[facility] Uggvrxsmlc4066 [place] [phone]. Emelina Navarro Potassium [Moles/Vol] 4.0 mmol/L Normal 3.5-5.1 [facility] Comment on above: Performed By: #### C MP ####[facility] Sbsydqjsjk7512 [place] [phone]. Emelina Navarro Protein [Mass/Vol] 6.5 g/dL Normal 6.4-8.2 [facility] Comment on above: Performed By: #### C MP ####[facility] [address] [place] [address]Dr. Emelina Navarro Sodium [Moles/Vol] 139 mmol/L Normal 136-145 [facility] Comment on above: Performed By: #### C MP ####[facility] Vxccueorod[address] [place] [address]Dr. Emelina Navarro Urea nitrogen [Mass/Vol] 38.0 mg/dL Critically high 7.0-18.0 [facility] Comment on above: Performed By: #### C MP ####[facility] Txmbmnghjk[address] [place] [address]Dr. Emelina Navarro Urea nitrogen/Creatinine [Mass ratio] 24.7 mg/mg Normal [facility] Comment on above: Performed By: #### C MP ####[facility] Ycjlymkhko[address] [place], [place] [address]Dr. Emelina Navarro PROTIMEon 05-02-2022 INR Coag (PPP) [Relative time] 2.57 {INR} Normal [facility] Comment on above: Performed By: #### P T ####[facility] Hbxqgcadql[address] [place], [place] [address]Dr. Emelina Navarro INR GUIDELINES SEE BELOW Normal [facility] Comment on above: Result Comment: WENDY RED INR: 2.0 - 3.0 CONDITIONS NOT LISTED BELOW 2.5 - 3.5 FOR PROSTHETIC HEART VALVE REPLACEMENT 2.5 - 3.5 RECURRENT THROMBOSIS Performed By: #### P T ####[facility] Ngrpfgigqy[address] [place], [place] [address]Dr. Emelina Navarro PT Coag (PPP) [Time] 26.1 s Critically high 9.0-11.6 [facility] Comment on above: Performed By: #### P T ####[facility] Ezuaexnyph[address] [place], [place] [address]Dr. Emelina Navarro CBC AUTO DIFFon 05-01-2022 BASO # 0.0 103/ul Normal 0.0-0.1 [facility] Comment on above: Performed By: #### C BC ####[facility] L[address]fwpx[address] [place] [address]Dr. Emelina Navarro Basophils/100 WBC (Bld) 0.1 % Critically low 0.2-2.0 [facility] Comment on above: Performed By: #### C BC ####[facility] Zqwoqwuxut[address] [place], [place] [address]Dr. Emelina Navarro EO # 0.0 103/ul Normal 0.0-0.7 [facility] Comment on above: Performed By: #### C BC ####[facility] Fkflegwwbg[address] [place], [place] [address]Dr. Emelina Navarro Eosinophils/100 WBC (Bld) 0.0 % Critically low 0.9-7.0 [facility] Comment on above: Performed By: #### C BC ####[facility] Ecjmfrftzu[address] [place], [place] [address]Dr. Emelina Navarro Erythrocyte distribution width (RBC) [Ratio] 16.5 % Critically high 11.0-15.0 [facility] Comment on above: Performed By: #### C BC ####[facility] Zyzyeethhn[address] [place], [place] [address]Dr. Emelina Navarro Hematocrit (Bld) [Volume fraction] 41.5 % Critically low 42.0-54.0 [facility] Comment on above: Performed By: #### C BC ####[facility] Zttduwdofy[address] [place], [place] [address]Dr. Emelina Navarro Hemoglobin (Bld) [Mass/Vol] 13.5 g/dL Critically low 14.0-18.0 [facility] Comment on above: Performed By: #### C BC ####[facility] Jluffxhssz[address] [place], [place] [address]Dr. Emelina Navarro IG # 0.12 10e3/ul Critically high 0.00-0.[address] [facility] Comment on above: Performed By: #### C BC ####[facility] Ldzoaftbxg3[address] [place], [place] [address]Dr. Emelina Navarro IG % 0.7 % Critically high 0.0-0.5 [facility] Comment on above: Performed By: #### C BC ####[facility] Llgsdwkzyl29[address] [place], [place] [address]Uc. Emelina Navarro LYMPH # 0.8 103/ul Critically low 1.2-3.8 [facility] Comment on above: Performed By: #### C BC ####[facility] Rhetgqfdcc8394 [place], [place] [address]Tx. Emelina Navarro Lymphocytes/100 WBC (Bld) 4.7 % Critically low 20.5-60.0 [facility] Comment on above: Performed By: #### C BC ####[facility] Qymdafrtrr[address] [place] [phone]. Awildanitza Navarro MANUAL DIFF REQ NO Normal [facility] Comment on above: Performed By: #### C BC ####[facility] Jweputwbcc[address] [place] [phone]. Emelina Ramon MCH (RBC) [Entitic mass] 28.9 pg Normal 25.9-34.0 [facility] Comment on above: Performed By: #### C BC ####[facility] Nmqjlxnbnz7[address] [place] [phone]. Emelina Navarro MCHC (RBC) [Mass/Vol] 32.5 g/dL Normal 29.9-35.2 [facility] Comment on above: Performed By: #### C BC ####[facility] Kmufobwtcz02[address] [place] [phone]. Emelina Navarro MCV (RBC) [Entitic vol] 88.9 fL Normal 80.0-94.0 [facility] Comment on above: Performed By: #### C BC ####[facility] W[address]igmkfksq[address] [place] [phone]. Emelina Navarro MONO # 1.0 103/ul Critically high 0.3-0.8 [facility] Comment on above: Performed By: #### C BC ####[facility] Yhguumfbub5619 [place], [place] [address]Wu. Emelina Navarro Monocytes/100 WBC (Bld) 6.5 % Normal 1.7-12.0 [facility] Comment on above: Performed By: #### C BC ####[facility] Rkbklwoxmi14[address] [place] [phone]. Emelina Navarro NEUT # 14.1 103/ul Critically high 1.4-6.5 [facility] Comment on above: Performed By: #### C BC ####[facility] Puugiigdpj[address] [place] [phone]. Emelina Navarro Neutrophils/100 WBC (Bld) 88.0 % Critically high 43.0-75.0 [facility] Comment on above: Performed By: #### C BC ####[facility] Ezqbgkjues24[address] [place] [phone]. Emelina Navarro Platelet mean volume (Bld) [Entitic vol] 9.9 fL Normal 9.5-13.5 [facility] Comment on above: Performed By: #### C BC ####[facility] Keibmzpdwi[address] [place] [phone]. Emelina Navarro PLT 185 103/ul Normal 150-450 [facility] Comment on above: Performed By: #### C BC ####[facility] Fyrcmivtfo67[address] [place] [phone]. Emelina Navarro RBC 4.67 106/ul Critically low 4.70-6.10 [facility] Comment on above: Performed By: #### C BC ####[facility] Iordnuukgz8096 [place] [phone]. Emelina Navarro WBC 16.1 103/ul Critically high 4.0-11.0 [facility] Comment on above: Performed By: #### C BC ####[facility] Vwejlmvszk[address] [place] [phone]. Emelina Navarro LIVER PROFILEon 05-01-2022 Albumin/Globulin [Mass ratio] 0.7 {ratio} Normal [facility] Comment on above: Performed By: #### L IVER ####[facility] Ueudjglwaf[address] [place] [phone]. Emelina Navarro ALP [Catalytic activity/Vol] 71 U/L Normal 46-116 [facility] Comment on above: Performed By: #### L IVER ####[facility] Digeposghh1716 [place] [phone]. Emelina Navarro ALT [Catalytic activity/Vol] 558 U/L Critically high 16-63 [facility] Comment on above: Performed By: #### L IVER ####[facility] Klkrvxoyvc05[address] [place] [phone]. Emelina Navarro AST [Catalytic activity/Vol] 220 U/L Critically high 15-37 [facility] Comment on above: Performed By: #### L IVER ####[facility] Wellxqbogi[address] [place] [address]Dr. Emelina Navarro BILI, CONJUGATED 0.2 mg/dL Normal 0.0-0.2 [facility] Comment on above: Performed By: #### L IVER ####[facility] K[address]sljghw[address] [place] [address]Dr. Emelina Navarro Bilirubin [Mass/Vol] 0.5 mg/dL Normal 0.2-1.0 [facility] Comment on above: Performed By: #### L IVER ####[facility] Xnqwxmrnau[address] [place] [address]Dr. Emelina Navarro Globulin (S) [Mass/Vol] 3.9 g/dL Normal [facility] Comment on above: Performed By: #### L IVER ####[facility] Pcfbttkqbk[address] [place] [address]Dr. Emelina Navarro Protein [Mass/Vol] 6.8 g/dL Normal 6.4-8.2 [facility] Comment on above: Performed By: #### L IVER ####[facility] Sxmwdzugva[address] [place] [phone]. Emelina Navarro POINT OF CARE GLUCOSEon 04-19 Glucose [Mass/Vol] 205 mg/dL Critically high 74-106 [facility] Comment on above: Performed By: #### P OCGLUC ####[facility] Mhotnlvtgl[address] [place] [address]Dr. Emelina Navarro PROF 14(COMP METB)on 022 Albumin [Mass/Vol] 2.9 g/dL Critically low 3.4-5.0 [facility] Comment on above: Performed By: #### C MP ####[facility] Ouyjtlozls[address] [place], [place] [address]Dr. Emelina Navarro Performed By: #### Marlys ALBERTS ####[facility] Uchvjsnfgd22[address] [place], [place] [address]Dr. Emelina Navarro Albumin/Globulin [Mass ratio] 0.8 {ratio} Normal [facility] Comment on above: Performed By: #### C MP ####[facility] Nldthxkdch[address] [place], [place] [address]Dr. Emeilna Navarro ALP [Catalytic activity/Vol] 70 U/L Normal 46-116 [facility] Comment on above: Performed By: #### C MP ####[facility] Synhcdclel[address] [place], [place] [address]Dr. Emelina Navarro ALT [Catalytic activity/Vol] 552 U/L Critically high 16-63 [facility] Comment on above: Performed By: #### C MP ####[facility] Rxoganwmcg20[address] [place], [place] [address]Dr. Emelina Navarro Anion gap [Moles/Vol] 14.2 mmol/L Normal [facility] Comment on above: Performed By: #### C MP ####[facility] Nsjhnbwuuz[address] [place], [place] [address]Dr. Emelina Navarro AST [Catalytic activity/Vol] 214 U/L Critically high 15-37 [facility] Comment on above: Performed By: #### C MP ####[facility] Xcgtoxlxjg[address] [place], [place] [address]Dr. Emelina Navarro Bilirubin [Mass/Vol] 0.6 mg/dL Normal 0.2-1.0 [facility] Comment on above: Performed By: #### C MP ####[facility] Wwcidaeboi[address] [place], [place] [address]Dr. Emelina Navarro Calcium [Mass/Vol] 7.9 mg/dL Critically low 8.5-10.1 [facility] Comment on above: Performed By: #### C MP ####[facility] Wcjmrxxghz2621 [place] [phone]. Emelina Navarro Chloride [Moles/Vol] 103 mmol/L Normal 98-107 [facility] Comment on above: Performed By: #### C MP ####[facility] Fwpntfhncu[address] [place] [address]Dr. Emelina Navarro CO2 [Moles/Vol] 25.0 mmol/L Normal 21.0-32.0 [facility] Comment on above: Performed By: #### C MP ####[facility] Lvrcpybbui[address] [place] [address]Dr. Emelina Navarro Creatinine [Mass/Vol] 1.58 mg/dL Critically high 0.70-1.30 [facility] Comment on above: Performed By: #### C MP ####[facility] Cqsgdpiwro[address] [place], [place] [address]Dr. Emelina Ramon EGFR-AF CITIZEN OF [place] 53 mL/min/1.73m2 Critically low >=60 [facility] Comment on above: Performed By: #### C MP ####[facility] Siatqidewz[address] [place], [place] [address]Dr. Emelina Navarro EGFR-NON AF CITIZEN OF [place] 44 mL/min/1.73m2 Critically low >=60 [facility] Comment on above: Performed By: #### C MP ####[facility] Dwtznrfeuz10[address] [place] [address]Dr. Emelina Ramon Globulin (S) [Mass/Vol] 3.8 g/dL Normal [facility] Comment on above: Performed By: #### C MP ####[facility] Aekhcshwiq[address] [place], [place] [address]Dr. Emelina Ramon Glucose [Mass/Vol] 267 mg/dL Critically high 74-106 [facility] Comment on above: Performed By: #### C MP ####[facility] Qgovlixdrg[address] [place], [place] [address]Dr. Emelina Ramon Potassium [Moles/Vol] 3.2 mmol/L Critically low 3.5-5.1 [facility] Comment on above: Performed By: #### C MP ####[facility] Rtmbtkukuk[address] [place] [address]Dr. Emelina Navarro Protein [Mass/Vol] 6.7 g/dL Normal 6.4-8.2 [facility] Comment on above: Performed By: #### C MP ####[facility] Egaarcpolv3[address] [place], [place] [address]Dr. Emelina Navarro Sodium [Moles/Vol] 139 mmol/L Normal 136-145 [facility] Comment on above: Performed By: #### C MP ####[facility] Iumzcgxqlh[address] [place], [place] [address]Dr. Emelina Navarro Urea nitrogen [Mass/Vol] 43.0 mg/dL Critically high 7.0-18.0 [facility] Comment on above: Performed By: #### C MP ####[facility] Qaamlblnqw8[address] [place], [place] [address]Dr. Emelina Navarro Urea nitrogen/Creatinine [Mass ratio] 27.2 mg/mg Normal [facility] Comment on above: Performed By: #### C MP ####[facility] Bnpriboapk[address] [place], [place] [address]Dr. Emelina Navarro PROTIMEon 05-01-2022 INR Coag (PPP) [Relative time] 2.57 {INR} Normal [facility] Comment on above: Performed By: #### P T ####[facility] Ewvfappijy[address] [place], [place] [address]Dr. Emelina Navarro INR GUIDELINES SEE BELOW Normal [facility] Comment on above: Result Comment: WENDY RED INR: 2.0 - 3.0 CONDITIONS NOT LISTED BELOW 2.5 - 3.5 FOR PROSTHETIC HEART VALVE REPLACEMENT 2.5 - 3.5 RECURRENT THROMBOSIS Performed By: #### P T ####[facility] Eirhqzwnko[address] [place], [place] [address]Dr. Emelina Navarro PT Coag (PPP) [Time] 26.1 s Critically high 9.0-11.6 [facility] Comment on above: Performed By: #### P T ####[facility] Sroujxyuxr[address] [place], [place] [address]Dr. Emelina Navarro CBC AUTO DIFFon 04-30-2022 BASO # 0.0 103/ul Normal 0.0-0.1 [facility] Comment on above: Performed By: #### C BC ####[facility] Zoypasrxjo[address] [place] [address]Dr. Emelina Navarro Basophils/100 WBC (Bld) 0.1 % Critically low 0.2-2.0 [facility] Comment on above: Performed By: #### C BC ####[facility] Ldufcshzlj[address] [place], [place] [address]Dr. Emelina Navarro EO # 0.0 103/ul Normal 0.0-0.7 [facility] Comment on above: Performed By: #### C BC ####[facility] Ihcoplfxxy8[address] [place], [place] [address]Dr. Emelina Navarro Eosinophils/100 WBC (Bld) 0.0 % Critically low 0.9-7.0 [facility] Comment on above: Performed By: #### C BC ####[facility] Honxxlawpr[address] [place], [place] [address]Dr. Emelina Navarro Erythrocyte distribution width (RBC) [Ratio] 16.4 % Critically high 11.0-15.0 [facility] Comment on above: Performed By: #### C BC ####[facility] Zamvdqdrko[address] [place], [place] [address]Dr. Emelina Navarro Hematocrit (Bld) [Volume fraction] 40.9 % Critically low 42.0-54.0 [facility] Comment on above: Performed By: #### C BC ####[facility] Wbggpscxcn[address] [place], [place] [address]Dr. Emelina Navarro Hemoglobin (Bld) [Mass/Vol] 13.3 g/dL Critically low 14.0-18.0 [facility] Comment on above: Performed By: #### C BC ####[facility] [address]yjumkwmzc[address] [place] [address]Dr. Awildanitza Navarro IG # 0.11 10e3/ul Critically high 0.00-0.03 [facility] Comment on above: Performed By: #### C BC ####[facility] Bmtcmkyiks6806 [place] [phone]. Emelina Navarro IG % 0.5 % Normal 0.0-0.5 [facility] Comment on above: Performed By: #### C BC ####[facility] Ziumdhjqbv4736 [place] [phone]. Emelina Navarro LYMPH # 0.8 103/ul Critically low 1.2-3.[address] [facility] Comment on above: Performed By: #### C BC ####[facility] Jvekyiztto5903 [place] [phone]. Emelina Navarro Lymphocytes/100 WBC (Bld) 3.9 % Critically low 20.5-60.0 [facility] Comment on above: Performed By: #### C BC ####[facility] Blypscquds[address] [place] [phone]. Emelina Ramon MANUAL DIFF REQ NO Normal [facility] Comment on above: Performed By: #### C BC ####[facility] Mswawdbwwo1813 [place] [phone]. Emelina Navarro MCH (RBC) [Entitic mass] 29.0 pg Normal 25.9-34.0 [facility] Comment on above: Performed By: #### C BC ####[facility] Mamzipbsln3607 [place] [phone]. mEelina Navarro MCHC (RBC) [Mass/Vol] 32.5 g/dL Normal 29.9-35.2 [facility] Comment on above: Performed By: #### C BC ####[facility] Fufujbyggl1121 [place] [phone]. Emelina Navarro MCV (RBC) [Entitic vol] 89.1 fL Normal 80.0-94.0 [facility] Comment on above: Performed By: #### C BC ####[facility] Qfmgqhwwdi[address] [place] [phone]. Emelina Ramon MONO # 0.9 103/ul Critically high 0.3-0.8 [facility] Comment on above: Performed By: #### C BC ####[facility] Pkyactdfzs2287 [place] [phone]. Emelina Navarro Monocytes/100 WBC (Bld) 4.2 % Normal 1.7-12.0 [facility] Comment on above: Performed By: #### C BC ####[facility] Nyqvesybva4234 [place] [phone]. Emelina Navarro NEUT # 18.5 103/ul Critically high 1.4-6.5 [facility] Comment on above: Performed By: #### C BC ####[facility] Rrkifndwmw8322 [place] [phone]. Emelina Ramon Neutrophils/100 WBC (Bld) 91.3 % Critically high 43.0-75.0 [facility] Comment on above: Performed By: #### C BC ####[facility] Uclrburcuk[address] [place] [phone]. Awildanitza Ramon Platelet mean volume (Bld) [Entitic vol] 10.9 fL Normal 9.5-13.5 [facility] Comment on above: Performed By: #### C BC ####[facility] Jsuximpmlm8581 [place] [phone]. Emelina Ramon PLT 162 103/ul Normal 150-450 [facility] Comment on above: Performed By: #### C BC ####[facility] Mcqsnoalto7056 [place] [phone]. Emelina Ramon RBC 4.59 106/ul Critically low 4.70-6.10 [facility] Comment on above: Performed By: #### C BC ####[facility] Rtubythtzy8047 [place] [phone]. Emelina Navarro WBC 20.3 103/ul Critically high 4.0-11.0 [facility] Comment on above: Performed By: #### C BC ####[facility] Skjyoecbme26[address] [place] [phone]. Emelina Navarro PROF 14(COMP METB)on 022 Albumin [Mass/Vol] 2.8 g/dL Critically low 3.4-5.0 [facility] Comment on above: Performed By: #### C MP ####[facility] Qwfgmrfrrm4151 [place] [phone]. Emelina Navarro Albumin/Globulin [Mass ratio] 0.7 {ratio} Normal [facility] Comment on above: Performed By: #### C MP ####[facility] Utdpqznnsd4[address] [place], [place] [address]Ea. Emelina Navarro ALP [Catalytic activity/Vol] 65 U/L Normal 46-116 [facility] Comment on above: Performed By: #### C MP ####[facility] Tefwvgqkic5664 [place] [phone]. Emelina Ramon ALT [Catalytic activity/Vol] 467 U/L Critically high 16-63 [facility] Comment on above: Performed By: #### C MP ####[facility] Byabbhkjly5[address] [place] [phone]. Awildanitza Ramon Anion gap [Moles/Vol] 15.3 mmol/L Normal [facility] Comment on above: Performed By: #### C MP ####[facility] Dtngwavopr0622 [place] [phone]. Emelina Navarro AST [Catalytic activity/Vol] 239 U/L Critically high 15-37 [facility] Comment on above: Performed By: #### C MP ####[facility] Fedwwgmprr3983 [place] [phone]. Emelina Ramon Bilirubin [Mass/Vol] 0.7 mg/dL Normal 0.2-1.0 [facility] Comment on above: Performed By: #### C MP ####[facility] Onhxsadjbe4873 [place] [phone]. Emelina Ramon Calcium [Mass/Vol] 7.9 mg/dL Critically low 8.5-10.1 [facility] Comment on above: Performed By: #### C MP ####[facility] Wucxqypyow7165 [place] [phone]. Emelina Navarro Chloride [Moles/Vol] 106 mmol/L Normal 98-107 [facility] Comment on above: Performed By: #### C MP ####[facility] Kplxworszd2172 [place] [phone]. Emelina Navarro CO2 [Moles/Vol] 23.3 mmol/L Normal 21.0-32.0 [facility] Comment on above: Performed By: #### C MP ####[facility] Vihwwxqjac3102 [place] [phone]. Emelina Navarro Creatinine [Mass/Vol] 1.71 mg/dL Critically high 0.70-1.30 [facility] Comment on above: Performed By: #### C MP ####[facility] Maofiiejbo[address]993 [place] [phone]. Emelina Navarro EGFR-AF CITIZEN OF [place] 49 mL/min/1.73m2 Critically low >=60 [facility] Comment on above: Performed By: #### C MP ####[facility] [address]ch[address] [place] [id number]. Emelina Navarro EGFR-NON AF CITIZEN OF [place] 40 mL/min/1.73m2 Critically low >=60 [facility] Comment on above: Performed By: #### C MP ####[facility] Ihqwshyunr[address] [place] [phone]. Emelina Navarro Globulin (S) [Mass/Vol] 3.9 g/dL Normal [facility] Comment on above: Performed By: #### C MP ####[facility] Bkrhahgdcj5772 [place] [phone]. Emelina Navarro Glucose [Mass/Vol] 233 mg/dL Critically high 74-106 [facility] Comment on above: Performed By: #### C MP ####[facility] Ygmcfomnbh1108 [place] [phone]. Emelina Navarro Potassium [Moles/Vol] 3.6 mmol/L Normal 3.5-5.1 [facility] Comment on above: Performed By: #### C MP ####[facility] Fuavqhvjkv9874 [place] [phone]. Emelina Navarro Protein [Mass/Vol] 6.7 g/dL Normal 6.4-8.2 [facility] Comment on above: Performed By: #### C MP ####[facility] Splnxyfehq2571 [place] [phone]. Emelina Navarro Sodium [Moles/Vol] 141 mmol/L Normal 136-145 [facility] Comment on above: Performed By: #### C MP ####[facility] Ddcluwzpna9283 [place] [phone]. Emelina Navarro Urea nitrogen [Mass/Vol] 46.0 mg/dL Critically high 7.0-18.0 [facility] Comment on above: Performed By: #### C MP ####[facility] Rdaklnymaw5584 [place] [address]Dr. Emelina Navarro Urea nitrogen/Creatinine [Mass ratio] 26.9 mg/mg Normal [facility] Comment on above: Performed By: #### C MP ####[facility] Iscnjgnjlf[address] [place], [place] [address]Dr. Emelina Navarro XR CHEST 2 Von 04-30-2022 XR CHEST 2 V Normal [facility] CBC AUTO DIFFon 04-29-2022 BASO # 0.0 103/ul Normal 0.0-0.1 [facility] Comment on above: Performed By: #### C BC ####[facility] Oxmiscuebz6563[address] [place], [place] [address]Dr. Emelina Ramon Basophils/100 WBC (Bld) 0.1 % Critically low 0.2-2.0 [facility] Comment on above: Performed By: #### C BC ####[facility] Wtztgxdvre[address] [place], [place] [address]Dr. Emelina Navarro EO # 0.0 103/ul Normal 0.0-0.7 [facility] Comment on above: Performed By: #### C BC ####[facility] Fvjbvgrycw01[address] [place], [place] [address]Dr. Emelina Ramon Eosinophils/100 WBC (Bld) 0.0 % Critically low 0.9-7.0 [facility] Comment on above: Performed By: #### C BC ####[facility] Xlmxkdrmec4038[address] [place], [place] [address]Dr. Emelina Navarro Erythrocyte distribution width (RBC) [Ratio] 16.2 % Critically high 11.0-15.0 [facility] Comment on above: Performed By: #### C BC ####[facility] Yuiymokxpj6142 [place] [address]DrWesley Navarro Hematocrit (Bld) [Volume fraction] 40.6 % Critically low 42.0-54.0 [facility] Comment on above: Performed By: #### C BC ####[facility] Xtnhpqxiyz48[address] [place], [place] [address]DrWesley Navarro Hemoglobin (Bld) [Mass/Vol] 13.2 g/dL Critically low 14.0-18.0 [facility] Comment on above: Performed By: #### C BC ####[facility] Kmbyiyimng94[address] [place], [place] [address]DrWesley Navarro IG # 0.11 10e3/ul Critically high 0.00-0.[address] [facility] Comment on above: Performed By: #### C BC ####[facility] Smvsiwdyln44[address] [place], [place] [address]DrWesley Navarro IG % 0.6 % Critically high 0.0-0.5 [facility] Comment on above: Performed By: #### C BC ####[facility] Kffeqwszml[address] [place], [place] [address]DrWesley Navarro LYMPH # 1.1 103/ul Critically low 1.2-3.[address] [facility] Comment on above: Performed By: #### C BC ####[facility] Vsdrnjvuri5[address] [place], [place] [address]DrWesley Navarro Lymphocytes/100 WBC (Bld) 5.6 % Critically low 20.5-60.0 [facility] Comment on above: Performed By: #### C BC ####[facility] Tcifnzkqke60[address] [place], [place] [address]DrWesley Navarro MANUAL DIFF REQ NO Normal [facility] Comment on above: Performed By: #### C BC ####[facility] Qgbfszgwfq8384[address] [place], [place] [address]DrWesley Navarro MCH (RBC) [Entitic mass] 29.1 pg Normal 25.9-34.0 [facility] Comment on above: Performed By: #### C BC ####[facility] Htzhirregv3864 [place] [address]Dr. Emelina Ramon MCHC (RBC) [Mass/Vol] 32.5 g/dL Normal 29.9-35.2 [facility] Comment on above: Performed By: #### C BC ####[facility] Ypxweypkhc50[address] [place], [place] [address]Dr. Emelina Navarro MCV (RBC) [Entitic vol] 89.4 fL Normal 80.0-94.0 [facility] Comment on above: Performed By: #### C BC ####[facility] Qttipcymlv[address] [place], [place] [address]DrWesley Navarro MONO # 0.6 103/ul Normal 0.3-0.8 [facility] Comment on above: Performed By: #### C BC ####[facility] Yglgcmghsf[address] [place], [place] [address]Dr. Emelina Navarro Monocytes/100 WBC (Bld) 3.2 % Normal 1.7-12.0 [facility] Comment on above: Performed By: #### C BC ####[facility] Vgfevqoxve[address] [place], [place] [address]DrWesley Navarro NEUT # 17.4 103/ul Critically high 1.4-6.5 [facility] Comment on above: Performed By: #### C BC ####[facility] Vnohvnrbhd[address] [place], [place] [address]DrWesley Navarro Neutrophils/100 WBC (Bld) 90.5 % Critically high 43.0-75.0 [facility] Comment on above: Performed By: #### C BC ####[facility] Qxbgeihksj[address] [place], [place] [address]DrWesley Navarro Platelet mean volume (Bld) [Entitic vol] 10.3 fL Normal 9.5-13.5 [facility] Comment on above: Performed By: #### C BC ####[facility] Lxe[address] [place], [place] [id number]. Emelina Navarro PLT 175 103/ul Normal 150-450 [facility] Comment on above: Performed By: #### C BC ####[facility] Lmmzzpgwnd8813 [place], [place] [address]Xa. Emelina Navarro RBC 4.54 106/ul Critically low 4.70-6.10 [facility] Comment on above: Performed By: #### C BC ####[facility] [address]fpcp[address] [place], [place] [address]Kn. Emelina Navarro WBC 19.2 103/ul Critically high 4.0-11.0 [facility] Comment on above: Performed By: #### C BC ####[facility] Gvijmqtkhb23[address] [place] [phone]. Emelina Navarro Covid-19 PCR (CVDTB)on 04-19 SARS-CoV-2 (COVID-19) RNA RADHA+probe Ql (Unsp spec) Not detected Normal NOT DETECTED [facility] Comment on above: Result Comment: [...] for this test is supported by the [employer] Manager of Health and Human Service's declaration that [...] be used). Performed By: #### C VDTBH ####[facility] Hhvmriubez6470 [place], [place] [address]Qn. Emelina Navarro LIPASEon 04-29-2022 Lipase [Catalytic activity/Vol] 74.0 U/L Normal 73.0-393.0 [facility] Comment on above: Performed By: #### L IPA ####[facility] Wutqpinvki1654 [place] [address]DrWesley Navarro PROF 14(COMP METB)on 022 Albumin [Mass/Vol] 2.8 g/dL Critically low 3.4-5.0 [facility] Comment on above: Performed By: #### C MP ####[facility] Ebimfhqbsg75[address] [place] [address]DrWesley Navarro Albumin/Globulin [Mass ratio] 0.7 {ratio} Normal [facility] Comment on above: Performed By: #### C MP ####[facility] Jkwdrqlypl13[address] [place] [address]Dr. Emelina Navarro ALP [Catalytic activity/Vol] 70 U/L Normal 46-116 [facility] Comment on above: Performed By: #### C MP ####[facility] Npiqgrbdjh3068 [place] [address]Dr. Emelina Navarro ALT [Catalytic activity/Vol] 456 U/L Critically high 16-63 [facility] Comment on above: Performed By: #### C MP ####[facility] Xvjclarsmw19[address] [place], [place] [address]DrWesley Navarro Anion gap [Moles/Vol] 14.7 mmol/L Normal [facility] Comment on above: Performed By: #### C MP ####[facility] Ciuxstoyiz[address] [place], [place] [address]DrWesley Navarro AST [Catalytic activity/Vol] 388 U/L Critically high 15-37 [facility] Comment on above: Performed By: #### C MP ####[facility] Gfrozeagfx6697 [place] [address]DrWesley Navarro Bilirubin [Mass/Vol] 1.2 mg/dL Critically high 0.2-1.0 [facility] Comment on above: Performed By: #### C MP ####[facility] Znjlbbehde6108 [place] [address]DrWesley Navarro Calcium [Mass/Vol] 7.8 mg/dL Critically low 8.5-10.1 [facility] Comment on above: Performed By: #### C MP ####[facility] Cllklsxuph6107 [place] [address]Dr. Emelina Navarro Chloride [Moles/Vol] 103 mmol/L Normal 98-107 [facility] Comment on above: Performed By: #### C MP ####[facility] Fwhpplgioj6636 [place] [phone]. Emelina Navarro CO2 [Moles/Vol] 20.8 mmol/L Critically low 21.0-32.0 [facility] Comment on above: Performed By: #### C MP ####[facility] Srvjmezelm6814 [place] [address]Dr. Emelina Ramon Creatinine [Mass/Vol] 1.79 mg/dL Critically high 0.70-1.30 [facility] Comment on above: Performed By: #### C MP ####[facility] Obrfjrraix[address] [place], [place] [address]Dr. Emelina Ramon EGFR-AF [place] 46 mL/min/1.73m2 Critically low >=60 [facility] Comment on above: Performed By: #### C MP ####[facility] Zovswpjcvo[address] [place], [place] [address]Dr. Emelina Ramon EGFR-NON AF [place]IZ[place] 38 mL/min/1.73m2 Critically low >=60 [facility] Comment on above: Performed By: #### C MP ####[facility] Symwusibih7329 [place] [address]Dr. Emelina Ramon Globulin (S) [Mass/Vol] 3.9 g/dL Normal [facility] Comment on above: Performed By: #### C MP ####[facility] Ucmruollet9628 [place] [address]Dr. Emelina Ramon Glucose [Mass/Vol] 313 mg/dL Critically high 74-106 [facility] Comment on above: Performed By: #### C MP ####[facility] Xcggaoocrt1364[address] [place], [place] [address]Dr. Emelina Navarro Potassium [Moles/Vol] 3.5 mmol/L Normal 3.5-5.1 [facility] Comment on above: Performed By: #### C MP ####[facility] Lrrqdkempm2362 [place] [address]Dr. Emelina Navarro Protein [Mass/Vol] 6.7 g/dL Normal 6.4-8.2 [facility] Comment on above: Performed By: #### C MP ####[facility] Ovcuphgswk7[address] [place], [place] [address]Dr. Emelina Navarro Sodium [Moles/Vol] 135 mmol/L Critically low 136-145 [facility] Comment on above: Performed By: #### C MP ####[facility] Uyelfxhelz12[address] [place], [place] [address]Dr. Emelina Navarro Urea nitrogen [Mass/Vol] 41.0 mg/dL Critically high 7.0-18.0 [facility] Comment on above: Performed By: #### C MP ####[facility] Qcqjmfiyxg1162[address] [place], [place] [address]Dr. Emelina Navarro Urea nitrogen/Creatinine [Mass ratio] 22.9 mg/mg Normal [facility] Comment on above: Performed By: #### C MP ####[facility] Udxzjtuolp[address] [place], [place] [address]Dr. Emelina Navarro US SINGLE QUAD RT UPPERon US SINGLE QUAD RT UPPER Normal [facility] BLOOD GASES BTYon 04-28-2022 02 MODE NASAL CANNULA Normal [facility] Comment on above: Result Comment: rese rvoir cannula Performed By: #### A BG ####[facility] Qdwjhiydnx[address] [place], [place] [address]Dr. Emelina Navarro ALLENS TEST Positive Normal [facility] Comment on above: Performed By: #### A BG ####[facility] Ditbapovxp[address] [place], [place] [address]Dr. Emelina Navarro Base excess Calc (Bld) [Moles/Vol] -6.6000 mmol/L Critically low -2.0-2.0 [facility] Comment on above: Performed By: #### A BG ####[facility] Eabijzmvsi1780 [place] [address]Dr. Emelina Navarro BIPAP PRESSURE Normal [facility] Comment on above: Performed By: #### A BG ####[facility] Hgqeinziqi0511 [place] [address]Dr. Emelina Navarro CO2 [Moles/Vol] 34.0 mmol/L Critically high 23.0-28.0 [facility] Comment on above: Performed By: #### A BG ####[facility] Qotjkcnqgj9327 [place] [address]Dr. Emelina Navarro CPAP Normal [facility] Comment on above: Performed By: #### A BG ####[facility] Kxkdljbbtf4774 [place] [address]Dr. Emelina Navarro FIO2 Normal [facility] Comment on above: Performed By: #### A BG ####[facility] Naavrpwgrz7[address] [place], [place] [address]Dr. Emelina Navarro HCO3 (Bld) [Moles/Vol] 20.5 mmol/L Critically low 22.0-26. 0 [facility] Comment on above: Performed By: #### A BG ####[facility] Iyrgjrixfq[address] [place], [place] [address]Dr. Emelina Navarro LPM 5 Normal [facility] Comment on above: Performed By: #### A BG ####[facility] Dtsmngmigq[address] [place], [place] [address]Dr. Emelina Navarro MINUTE VOLUME Normal [facility] Comment on above: Performed By: #### A BG ####[facility] Bxhwhzjuwl6860 [place] [address]Dr. Emelina Navarro Oxygen (Bld) [Partial pressure] 62.0 mm[Hg] Critically low 80.0-100.0 [facility] Comment on above: Performed By: #### A BG ####[facility] Iiyxqolkol6346[address] [place], [place] [address]Dr. Emelina Navarro Oxygen saturation in Blood 92.6 % Critically low 95.0-100.0 [facility] Comment on above: Performed By: #### A BG ####[facility] Dpawniyodx7645 [place] [address]Dr. Emelina Navarro PCO2 25.7 mmHg Critically low 35.0-45.[address] [facility] Comment on above: Performed By: #### A BG ####[facility] Vmpszcxeqk1909 [place] [address]Dr. Emelina Navarro PEEP [facility] Comment on above: Performed By: #### A BG ####[facility] Cplxkspjix2682 [place] [address]Dr. Emelina Navarro pH (Bld) 7.443 [pH] Normal 7.350-7.45 0 [facility] Comment on above: Performed By: #### A BG ####[facility] Dkjlhqmsgo47[address] [place], [place] [address]Dr. Emelina Navarro PIP [facility] Comment on above: Performed By: #### A BG ####[facility] Hdgfshfkop[address] [place], [place] [address]Dr. Emelina Navarro PS [facility] Comment on above: Performed By: #### A BG ####[facility] Ocklmkjreb[address] [place], [place] [address]Dr. Emelina Navarro PUNCTURE SITE LR [place] [facility] Comment on above: Performed By: #### A BG ####[facility] Pyzmunfhwd90[address] [place], [place] [address]Dr. Emelina Navarro RATE [facility] Comment on above: Performed By: #### A BG ####[facility] Gbmkxrlfwq[address] [place], [place] [address]Dr. Emelina Navarro VENT MODE Normal [facility] Comment on above: Performed By: #### A BG ####[facility] Emhzzzuhre[address] [place], [place] [address]Dr. Emelina Navarro VT [facility] Comment on above: Performed By: #### A BG ####[facility] Xcgeljlfls48[address] [place], [place] [address]Dr. Emelina aNvarro BNPon 04-28-2022 Natriuretic peptide B (Bld) [Mass/Vol] 57167.0 pg/mL Critically high <=900.0 [facility] Comment on above: Performed By: #### C MP, BNP, CMADM ####[facility] Nsrqhesovb8795 [place] [address]Dr. Emelina Navarro CARDIAC IMTIAZ ADMITon 022 CK [Catalytic activity/Vol] 86 U/L Normal 39-308 [facility] Comment on above: Performed By: #### C MP, BNP, CMADM ####[facility] Taniimtrfv3639[address] [place], [place] [address]Dr. Emelina Navarro CK.MB [Mass/Vol] 1.41 ng/mL Normal <=3.60 [facility] Comment on above: Performed By: #### C MP, BNP, CMADM ####[facility] Qwbbkfvqwu47[address] [place], [place] [address]Dr. Awildanitza Navarro HSTROP 63.7 pg/mL Normal 4.0-76.1 [facility] Comment on above: Result Comment: CUT- OFF POINTS HAVE BEEN ESTABLISHED BASED ON THE FOURTH UNIVERSAL DEFINITIONS OF MYOCARDIALINFARCTION. THE UPPER REFERENCE LIMIT (URL) OF TROPONIN, DEFINED THE 99TH PERCENTILE OFcTnI DISTRIBUTION IN A REFERENCE POPULATION, HAS BEEN CONFIRMED THE DECISION THRESHOLDFOR [place] DIAGNOSIS. Performed By: #### C MP, BNP, CMADM ####[facility] Ocuiuvaqbq[address] [place], [place] [address]Dr. Emelina Navarro URBANO 276 ng/mL Critically high 16-96 [facility] Comment on above: Performed By: #### C MP, BNP, CMADM ####[facility] Qaxffolfte8025[address] [place], [place] [address]Dr. Emelina Navarro CBC AUTO DIFFon 04-28-2022 BASO # 0.0 103/ul Normal 0.0-0.1 [facility] Comment on above: Performed By: #### C BC ####[facility] Bjnbhsagcn1841[address] [place], [place] [address]Dr. Emelina Navarro Basophils/100 WBC (Bld) 0.2 % Normal 0.2-2.0 [facility] Comment on above: Performed By: #### C BC ####[facility] Bjdbxeghrz5964 [place] [phone]. Emelina Navarro EO # 0.0 103/ul Normal 0.0-0.7 [facility] Comment on above: Performed By: #### C BC ####[facility] Dbeceiaslf5575 [place] [phone]. Emelina Navarro Eosinophils/100 WBC (Bld) 0.1 % Critically low 0.9-7.0 [facility] Comment on above: Performed By: #### C BC ####[facility] Yedhyqxscm[address] [place], [place] [address]Dr. Emelina Navarro Erythrocyte distribution width (RBC) [Ratio] 16.5 % Critically high 11.0-15.0 [facility] Comment on above: Performed By: #### C BC ####[facility] Eyztlgvfgf[address] [place], [place] [address]Dr. Emelina Navarro Hematocrit (Bld) [Volume fraction] 45.2 % Normal 42.0-54.0 [facility] Comment on above: Performed By: #### C BC ####[facility] Knzthotxod[address] [place], [place] [address]Dr. Emelina Navarro Hemoglobin (Bld) [Mass/Vol] 14.8 g/dL Normal 14.0-18.0 [facility] Comment on above: Performed By: #### C BC ####[facility] Kcvgycqsow[address] [place] [address]Dr. Emelina Navarro IG # 0.14 10e3/ul Critically high 0.00-0.03 [facility] Comment on above: Performed By: #### C BC ####[facility] Smvxukuqao[address] [place], [place] [id number]. Emelina Navarro IG % 0.9 % Critically high 0.0-0.5 [facility] Comment on above: Performed By: #### C BC ####[facility] Nmuykgjbdm[address] [place], [place] [address]Dr. Emelina Navarro LYMPH # 0.8 103/ul Critically low 1.2-3.[address] [facility] Comment on above: Performed By: #### C BC ####[facility] Wdpfniqpwi0480 [place] [phone]. Awildanitza Navarro Lymphocytes/100 WBC (Bld) 5.1 % Critically low 20.5-60.0 [facility] Comment on above: Performed By: #### C BC ####[facility] Rtznfebcyf1931 [place] [phone]. Emelian Navarro MANUAL DIFF REQ NO Normal [facility] Comment on above: Performed By: #### C BC ####[facility] Rakjiwojmd17[address] [place] [address]Dr. Emelina Navarro MCH (RBC) [Entitic mass] 29.3 pg Normal 25.9-34.0 [facility] Comment on above: Performed By: #### C BC ####[facility] Akhqpfpycu[address] [place], [place] [address]Dr. Emelina Navarro MCHC (RBC) [Mass/Vol] 32.7 g/dL Normal 29.9-35.2 [facility] Comment on above: Performed By: #### C BC ####[facility] Gspbebtciu[address] [place] [address]Dr. Emelina Navarro MCV (RBC) [Entitic vol] 89.5 fL Normal 80.0-94.0 [facility] Comment on above: Performed By: #### C BC ####[facility] Zxylehcuxi7714 [place] [address]Dr. Emelina Navarro MONO # 1.1 103/ul Critically high 0.3-0.8 [facility] Comment on above: Performed By: #### C BC ####[facility] Idvkyahufn[address] [place], [place] [address]Dr. Emelina Navarro Monocytes/100 WBC (Bld) 7.0 % Normal 1.7-12.0 [facility] Comment on above: Performed By: #### C BC ####[facility] W[address]qbjmsib[address] [place], [place] [address]Dr. Emelina Navarro NEUT # 13.3 103/ul Critically high 1.4-6.5 [facility] [facility] Comment on above: Performed By: #### C BC ####[facility] L[address]xfb[address] [place] [phone]. Emelina Navarro Neutrophils/100 WBC (Bld) 86.7 % Critically high 43.0-75.0 [facility] Comment on above: Performed By: #### C BC ####[facility] Wiwfscyubd94[address] [place] [phone]. Emelina Navarro Platelet mean volume (Bld) [Entitic vol] 10.7 fL Normal 9.5-13.5 [facility] Comment on above: Performed By: #### C BC ####[facility] Mzezgkcnqk7[address] [place] [phone]. Emelina Navarro PLT 200 103/ul Normal 150-450 [facility] Comment on above: Performed By: #### C BC ####[facility] Aaucrmmtcu[address]3 [place] [phone]. Emelina Navarro RBC 5.05 106/ul Normal 4.70-6.10 [facility] Comment on above: Performed By: #### C BC ####[facility] Kdsmdabwvx38[address] [place] [phone]. Emelina Navarro WBC 15.4 103/ul Critically high 4.0-11.0 [facility] Comment on above: Performed By: #### C BC ####[facility] N[address]jwnp[address] [place] [phone]. Emelina Navarro CULTURE BLOODon 04-28-2022 Microscopic examination of blood, culture Culture Observations: NO GROWTH AT 5 DAYS. Normal [facility] Comment on above: Performed By: #### B LDCX2 ####[facility] Ujiszcevxi13[address] [place] [phone]. Emelina Navarro Microscopic examination of blood, culture Culture Observations: NO GROWTH AT 5 DAYS. Normal [facility] Comment on above: Performed By: #### B LDCX1 ####[facility] Zzyujkqvwi08[address] [place] [phone]. Emelina Navarro Covid-19 PCR (CVDTB)on 04-19 SARS-CoV-2 (COVID-19) RNA RADHA+probe Ql (Unsp spec) Not detected Normal NOT DETECTED The [facility] Comment on above: Result Comment: [...] for this test is supported by the [place] of Health and Human Service's declaration that [...] be used). Performed By: #### C VDTB ####[facility] Bqaiqtqmvw[address] [place], [place] [address]Dr. Emelina Navarro DIGOXINon 04-28-2022 DIG 0.8 ng/mL Critically low 0.9-2.0 [facility] Comment on above: Performed By: #### D IG ####[facility] Vsrnadklcd[address] [place], [place] [address]Dr. Emelina Navarro ER URINE PROFILEon 2 Bilirubin Ql (U) Negative Normal NEGATIVE [facility] Comment on above: Performed By: #### PATRIZIA BOLAND ####[facility] Iiywojxnon[address] [place], [place] [address]Dr. Emelina Navarro Clarity (U) CLEAR Normal CLEAR The [facility] Comment on above: Performed By: #### PATRIZIA BOLAND ####[facility] Wgypmvewlw[address] [place], [place] [address]Dr. Emelina Navarro Color (U) YELLOW Normal YELLOW The [facility] Comment on above: Performed By: #### PATRIZIA BOLAND ####[facility] Nidhptaxrf78[address] [place], [place] [address]DrWesley CORREIA A micrscopic examina tion will be performed if indicated. Normal The [facility] Comment on above: Performed By: #### PATRIZIA BOLAND ####[facility] Enefceksxk[address] [place] [address]Dr. Emelina Navarro Glucose Ql (U) 500 mg/dl Abnormal NEGATIVE The [facility] Comment on above: Performed By: #### LINDSAY BOLANDRO ####[facility] Rwnzvmurbh[address] [place] [address]Dr. Emelina Navarro Hemoglobin Ql (U) MODERATE Abnormal NEGATIVE [facility] Comment on above: Performed By: #### LINDSAY BOLANDRO ####[facility] Ndeeavifig[address] [place] [address]Dr. Emelina Navarro Ketones Ql (U) Negative Normal NEGATIVE The [facility] Comment on above: Performed By: #### LINDSAY BOLANDRO ####[facility] Yojcmcswmw[address] [place], [place] [address]Dr. Emelina Navarro LEUKOCYTES Negative Normal NEGATIVE [facility] Comment on above: Performed By: #### LINDSAY BOLANDRO ####[facility] Apkscjboph[address] [place], [place] [address]Dr. Emelina Navarro Nitrite Ql (U) Negative Normal NEGATIVE The [facility] Comment on above: Performed By: #### LINDSAY BOLANDRO ####[facility] Vatssoeakm[address] [place] [address]Dr. Emelina Navarro pH (U) 5.0 [pH] Normal 5-9 [facility] Comment on above: Performed By: #### LINDSAY BOLANDRO ####[facility] Ijzzjftnwx7[address] [place] [address]Dr. Emelina Navarro Protein (U) [Mass/Vol] 100 mg/dL Abnormal NEGAT REJI/ TRACE The [facility] Comment on above: Performed By: #### LINDSAY BOLANDRO ####[facility] Jxebulcaec25[address] [place] [address]Dr. Emelina Navarro SPEC GRAVITY 1.025 Normal 1.005-<=1. 025 [facility] Comment on above: Performed By: #### PATRIZIA BOLAND ####[facility] Wmxqkkqwly[address] [place], [place] [address]Dr. Emelina Navarro UR MICRO IND INDICATED Normal [facility] Comment on above: Performed By: #### LINDSAY BOLANDRO ####[facility] Pfzjkmkvnj[address] [place] [address]Dr. Emelina Ramon Urobilinogen Qn (U) 0.2 {Ashley'U}/dL Normal 0.2 - 1. 0 [facility] Comment on above: Performed By: #### PATRIZIA BOLAND ####[facility] Yzmcwohqst[address] [place], [place] [address]Dr. Emelina Ramon LACTATE/LACTIC ACIDon 04-28- 2021 Lactate [Moles/Vol] 5.1 mmol/L Critically high 0.4-1.9 [facility] Comment on above: Performed By: #### L ACT ####[facility] Ktmdiqznks[address] [place], [place] [address]Dr. Emelina Navarro Lactate [Moles/Vol] 4.8 mmol/L Critically high 0.4-1.9 [facility] Comment on above: Performed By: #### L ACT ####[facility] Ajsuzxvtyh[address] [place], [place] [address]Dr. Emelina Navarro Lactate [Moles/Vol] 5.4 mmol/L Critically high 0.4-1.9 [facility] Comment on above: Performed By: #### L ACT ####[facility] Lcebqwglci[address] [place], [place] [address]Dr. Emelina Ramon POINT OF CARE GLUCOSEon 04-19 0-2021 Glucose [Mass/Vol] 426 mg/dL Critically high 74-106 [facility] Comment on above: Performed By: #### P OCGLUC ####[facility] Xejzsuchab[address] [place], [place] [address]Dr. Emelina Navarro Glucose [Mass/Vol] 476 mg/dL Critically high 74-106 [facility] Comment on above: Performed By: #### P OCGLUC ####[facility] Yagyrmurad[address] [place] [address]Dr. Emelina Navarro Glucose [Mass/Vol] 347 mg/dL Critically high 74-106 [facility] Comment on above: Performed By: #### P OCGLUC ####[facility] Qkglsfswbz1366 [place] [address]Dr. Emelina Navarro PROF 14(COMP METB)on 022 Albumin [Mass/Vol] 3.4 g/dL Normal 3.4-5.0 [facility] Comment on above: Performed By: #### C MP, BNP, CMADM ####[facility] Mpurxgqscy[address] [place] [address]Dr. Emelina Navarro Albumin/Globulin [Mass ratio] 0.8 {ratio} Normal [facility] Comment on above: Performed By: #### C MP, BNP, CMADM ####[facility] Tzslconlcx3378 [place] [address]Dr. Emelina Navarro ALP [Catalytic activity/Vol] 85 U/L Normal 46-116 [facility] Comment on above: Performed By: #### C MP, BNP, CMADM ####[facility] Hzpubjfuru2098 [place] [address]Dr. Emelina Navarro ALT [Catalytic activity/Vol] 246 U/L Critically high 16-63 [facility] Comment on above: Performed By: #### C MP, BNP, CMADM ####[facility] Shhfqdlrod[address]32 [place] [address]Dr. Emelina Navarro Anion gap [Moles/Vol] 20.7 mmol/L Normal [facility] Comment on above: Performed By: #### C MP, BNP, CMADM ####[facility] Ygyzypwjcs[address] [place] [address]Dr. Emelina Navarro AST [Catalytic activity/Vol] 299 U/L Critically high 15-37 [facility] Comment on above: Performed By: #### C MP, BNP, CMADM ####[facility] Karkquylil[address] [place] [address]Dr. Emelina Navarro Bilirubin [Mass/Vol] 2.7 mg/dL Critically high 0.2-1.0 [facility] Comment on above: Performed By: #### C MP, BNP, CMADM ####[facility] Iwgclgtlqm57[address] [place] [address]Dr. Emelina Navarro Calcium [Mass/Vol] 8.5 mg/dL Normal 8.5-10.1 [facility] Comment on above: Performed By: #### C MP, BNP, CMADM ####[facility] Zcvjmxnclt[address] [place], [place] [address]Dr. Emelina Navarro Chloride [Moles/Vol] 96 mmol/L Critically low 98-107 [facility] Comment on above: Performed By: #### C MP, BNP, CMADM ####[facility] Ofwgovlkan39[address] [place], [place] [address]Dr. Emelina Navarro CO2 [Moles/Vol] 19.3 mmol/L Critically low 21.0-32.0 [facility] Comment on above: Performed By: #### C MP, BNP, CMADM ####[facility] Qceyxuqprb[address] [place], [place] [address]Dr. Emelina Navarro Creatinine [Mass/Vol] 2.46 mg/dL Critically high 0.70-1.30 [facility] Comment on above: Performed By: #### C MP, BNP, CMADM ####[facility] Pfoguhevpv[address] [place], [place] [address]Dr. Emelina Navarro EGFR-AF [place]IZ[place] 32 mL/min/1.73m2 Critically low >=60 [facility] Comment on above: Performed By: #### C MP, BNP, CMADM ####[facility] Etdaguzclk[address] [place], [place] [address]Dr. Emelina Navarro EGFR-NON AF CITIZEN OF [place] 26 mL/min/1.73m2 Critically low >=60 [facility] Comment on above: Performed By: #### C MP, BNP, CMADM ####[facility] Zzcymwmtfi6[address] [place], [place] [address]Dr. Emelina Navarro Globulin (S) [Mass/Vol] 4.4 g/dL Normal [facility] Comment on above: Performed By: #### C MP, BNP, CMADM ####[facility] Duycclbyzi4[address] [place] [address]Dr. Emelina Navarro Glucose [Mass/Vol] 359 mg/dL Critically high 74-106 [facility] Comment on above: Performed By: #### C MP, BNP, CMADM ####[facility] Urfdxeodeo2970 [place] [address]Dr. Emelina Navarro Potassium [Moles/Vol] 7.0 mmol/L Critically high 3.5-5.1 [facility] Comment on above: Performed By: #### C MP, BNP, CMADM ####[facility] Bbkwuqgmwf4305 [place] [address]Dr. Emelina Navarro Protein [Mass/Vol] 7.8 g/dL Normal 6.4-8.2 [facility] Comment on above: Performed By: #### C MP, BNP, CMADM ####[facility] Pdnobypmcv[address] [place], [place] [address]Dr. Emelina Ramon Sodium [Moles/Vol] 129 mmol/L Critically low 136-145 [facility] Comment on above: Performed By: #### C MP, BNP, CMADM ####[facility] Nkwzkskvih40[address] [place] [address]Dr. Emelina Navarro Urea nitrogen [Mass/Vol] 37.0 mg/dL Critically high 7.0-18.0 [facility] Comment on above: Performed By: #### C MP, BNP, CMADM ####[facility] Lfkcitxezo8[address] [place], [place] [address]Dr. Emelina Navarro Urea nitrogen/Creatinine [Mass ratio] 15.0 mg/mg Normal [facility] Comment on above: Performed By: #### C MP, BNP, CMADM ####[facility] Cnkkyjpgup7690 [place] [address]Dr. Awildanitza Navarro PROF CHEM 8 (BAS METB)on Anion gap [Moles/Vol] 19.2 mmol/L Normal [facility] Comment on above: Performed By: #### B MP ####[facility] Yawfjmomcp5145 [place] [phone]. Emelina Navarro Calcium [Mass/Vol] 7.7 mg/dL Critically low 8.5-10.1 Th e [facility] Comment on above: Performed By: #### B MP ####[facility] Fmyrkowfwx6237 [place] [phone]. Emelina Navarro Chloride [Moles/Vol] 97 mmol/L Critically low 98-107 [facility] Comment on above: Performed By: #### B MP ####[facility] Ecuuxpjuei037[address] [place] [address]Dr. Emelina Navarro CO2 [Moles/Vol] 20.5 mmol/L Critically low 21.0-32.0 [facility] Comment on above: Performed By: #### B MP ####[facility] Jnvygrzabd[address] [place], [place] [address]Dr. Emelina Navarro Creatinine [Mass/Vol] 2.18 mg/dL Critically high 0.70-1.30 [facility] Comment on above: Performed By: #### B MP ####[facility] Scbsevfcri76[address] [place], [place] [address]Dr. Emelina Navarro EGFR-AF [place]IZ[place] 37 mL/min/1.73m2 Critically low >=60 [facility] Comment on above: Performed By: #### B MP ####[facility] Pwiflwocyr[address] [place], [place] [address]Dr. Emelina Navarro EGFR-NON AF [place]IZ[place] 30 mL/min/1.73m2 Critically low >=60 [facility] Comment on above: Performed By: #### B MP ####[facility] Bryivmwmyy3573 [place] [phone]. Emelina Navarro Glucose [Mass/Vol] 434 mg/dL Critically high 74-106 [facility] Comment on above: Performed By: #### B MP ####[facility] Zvkdynymfv40[address] [place], [place] [address]Dr. Emelina Navarro Potassium [Moles/Vol] 4.7 mmol/L Normal 3.5-5.1 [facility] Comment on above: Performed By: #### B MP ####[facility] Zrtfbznutk2469 [place] [address]Dr. Emelina Navarro Sodium [Moles/Vol] 132 mmol/L Critically low 136-145 [facility] Comment on above: Performed By: #### B MP ####[facility] Waprruwwmp0[address] [place], [place] [address]Dr. Emelina Navarro Urea nitrogen [Mass/Vol] 37.0 mg/dL Critically high 7.0-18.0 [facility] Comment on above: Performed By: #### B MP ####[facility] Qkimpazmsp[address] [place], [place] [address]Dr. Emelina Navarro Urea nitrogen/Creatinine [Mass ratio] 17.0 mg/mg Normal [facility] Comment on above: Performed By: #### B MP ####[facility] Ccqaqgidtb443[address] [place], [place] [address]Dr. Emelina Navarro PROTIMEon 04-28-2022 INR Coag (PPP) [Relative time] 1.91 {INR} Normal [facility] Comment on above: Performed By: #### P TT, PT ####[facility] Doowtgrrlw[address] [place], [place] [address]Dr. Emelina Navarro INR GUIDELINES SEE BELOW Normal [facility] Comment on above: Result Comment: WENDY RED INR: 2.0 - 3.0 CONDITIONS NOT LISTED BELOW 2.5 - 3.5 FOR PROSTHETIC HEART VALVE REPLACEMENT 2.5 - 3.5 RECURRENT THROMBOSIS Performed By: #### P TT, PT ####[facility] Odbsiignpq74[address] [place], [place] [address]Dr. Emelina Navarro PT Coag (PPP) [Time] 19.8 s Critically high 9.0-11.6 [facility] Comment on above: Performed By: #### P TT, PT ####[facility] Kzkuprnyii[address] [place], [place] [address]Dr. Emelina Navarro PTTon 04-28-2022 aPTT Coag (Bld) [Time] 33.0 s Normal 22.3-36.2 [facility] Comment on above: Performed By: #### P TT, PT ####[facility] Xshsjuomyy60[address] [place], [place] [address]Dr. Emelina Navarro RESPIRATORY PANEL PLUSon Adenovirus Not detected Normal NOT DETECTED The [facility] Comment on above: Performed By: #### R SPLUS ####[facility] Ocuvqyrtia[address] [place], [place] [address]Dr. Emelina Navarro B. Parapertusis Not detected Normal NOT DETECTED The [facility] Comment on above: Performed By: #### R SPLUS ####[facility] Dpgdbjevyx[address] [place], [place] [address]Dr. Emelina Navarro B. Pertussis Not detected Normal NOT DETECTED The [facility] Comment on above: Performed By: #### R SPLUS ####[facility] Cojvrfssnr[address] [place], [place] [address]Dr. Emelina Navarro Chlamydia Pneumoniae Not detected Normal NOT DETECTED The [facility] Comment on above: Performed By: #### R SPLUS ####[facility] Enlrquitjg5116[address] [place], [place] [address]Dr. nitza Navarro Coronavirus 229E Not detected Normal NOT DETECTED The [facility] Comment on above: Performed By: #### R SPLUS ####[facility] Eljkmfilgi87[address] [place], [place] [address]Dr. nitza [facility] Coronavirus HKU1 Not detected Normal NOT DETECTED The [facility] Comment on above: Performed By: #### R SPLUS ####[facility] Ucgddtbvoa3[address] [place], [place] [address]Dr. Awildanitza Navarro Coronavirus NL63 Not detected Normal NOT DETECTED The [facility] Comment on above: Performed By: #### R SPLUS ####[facility] Yptqllcohy85[address] [place], [place] [address]Dr. nitza Navarro Coronavirus OC43 Not detected Normal NOT DETECTED The [facility] Comment on above: Performed By: #### R SPLUS ####[facility] Wwamxuaohc[address] [place], [place] [address]Dr. Emelina Navarro Influenza A H1 2009 Not detected Normal NOT DETECTED The [facility] Comment on above: Performed By: #### R SPLUS ####[facility] Kbzpvqddil4167[address] [place], [place] [address]Dr. Emelina Navarro Influenza A H3 Not detected Normal NOT DETECTED The [facility] Comment on above: Performed By: #### R SPLUS ####[facility] Jojnmqycwk[address] [place], [place] [address]Dr. Emelina Navarro Influenza B Not detected Normal NOT DETECTED The [facility] Comment on above: Performed By: #### R SPLUS ####[facility] Tgxjlflnvd8[address] [place], [place] [address]Dr. Emelina Navarro Metapneumovirus Not detected Normal NOT DETECTED The [facility] Comment on above: Performed By: #### R SPLUS ####[facility] Qnrsyqonme01[address] [place], [place] [address]Dr. Emelina Navarro Mycoplas. Pneumoniae Not detected Normal NOT DETECTED The [facility] Comment on above: Performed By: #### R SPLUS ####[facility] Jnvjxdygan[address] [place], [place] [address]Dr. Emelina Navarro Parainfluenza 1 Not detected Normal NOT DETECTED The [facility] Comment on above: Performed By: #### R SPLUS ####[facility] Qngjkotbll[address] [place], [place] [address]Dr. Emelina Navarro Parainfluenza 2 Not detected Normal NOT DETECTED The [facility] Comment on above: Performed By: #### R SPLUS ####[facility] Vbnffcyodr3137[address] [place], [place] [address]Dr. Emelina Navarro Parainfluenza 3 Detected Abnormal NOT DETECTED The [facility] Comment on above: Performed By: #### R SPLUS ####[facility] Sotjliabew2[address] [place], [place] [address]Dr. Emelina Navarro Parainfluenza 4 Not detected Normal NOT DETECTED The [facility] Comment on above: Performed By: #### R SPLUS ####[facility] Rhjobpduyu[address] [place], [place] [address]Dr. Emelina Navarro Rhino/Enterovirus Not detected Normal NOT DETECTED The [facility] Comment on above: Performed By: #### R SPLUS ####[facility] R[address]vpcyhnqi[address] [place], [place] [id number]. Emelina Navarro RP2 Header 1 RESPIRATORY PANEL: VIRUSES Normal [facility] Comment on above: Performed By: #### R SPLUS ####[facility] Sjxpkafrzj[address] [place], [place] [address]Dr. Emelina Navarro RP2 Header 2 RESPIRATORY PANEL: BACTERIA Normal [facility] Comment on above: Performed By: #### R SPLUS ####[facility] Hghbxomebd4[address] [place], [place] [address]Dr. Emelina Navarro RSV Not detected Normal NOT DETECTED The [facility] Comment on above: Performed By: #### R SPLUS ####[facility] Dbybontyiu39[address] [place], [place] [address]Dr. Emelian Navarro SARS-CoV-2 (COVID-19) RNA RADHA+probe Ql (Unsp spec) Not detected Normal NOT DETECTED [facility] Comment on above: Performed By: #### R SPLUS ####[facility] [address]qgsvgvcv[address] [place], [place] [address]Dr. Emelina Navarro URINE MICROSCOPIC ONLYon BACTERIA NONE SEEN Normal NONE SEEN The [facility] Comment on above: Performed By: #### LINDSAY BOLANDRO ####[facility] Hcjvoudsqp[address] [place], [place] [address]Dr. Emelina Navarro Bacteria identified Cx Nom (U) NOT INDICATED Normal [facility] Comment on above: Performed By: #### RAMANDEEP BOLANDICRO ####[facility] Rimgrcirtp[address] [place], [place] [address]Dr. Emelina Navarro CAST SEEN Abnormal NONE SEEN The [facility] Comment on above: Performed By: #### Hitesh POLK UMICRO ####[facility] [address] [place], [place] [address]Dr. Emelina Navarro Crystals LM Nom (Urine sed) NONE SEEN Normal NONE SEEN [facility] Comment on above: Performed By: #### Hitesh POLK UMICRO ####[facility] [address] [place], [place] [address]Dr. Emelina Navarro Epithelial cells LM Ql (Urine sed) FEW Abnormal NONE SEEN /RARE [facility] Comment on above: Performed By: #### Hitesh POLK, UMICRO ####[facility] [address] [place], [place] [address]Ju. Emelina Navarro HYALINE CAST MANY Normal [facility] Comment on above: Performed By: #### Hitesh POLK, UMICRO ####[facility] [address] [place], [place] [address]Ff. Emelina Navarro MUCOUS NONE SEEN Normal NONE SEEN [facility] Comment on above: Performed By: #### Hitesh POLK, UMICRO ####[facility] [address] [place], [place] [address]Hn. Emelina Navarro RBC 0-2 Normal 0-2 [facility] Comment on above: Performed By: #### Hitesh POLK UMICRO ####[facility] [address] [place] [id number]. Emelina Navarro WBC 0-2 Abnormal NONE SEEN [facility] Comment on above: Performed By: #### LINDSAY BOLANDRO ####[facility] [address] [place] [id number]. Awildanitza Navarro XR CHEST 1 Von 04-28-2022 XR CHEST 1 V Normal [facility] Albumin [Mass/volume] in Ser um or PlasmaOrdered By: Ethan Cummings on 04-10-2022 Albumin [Mass/Vol] 3.8 g/dL 2.9-4.4 [facility] IgA [Mass/volume] in Serum o r PlasmaOrdered By: Ethan Cummings on 04-10-2022 IgA [Mass/Vol] 607 mg/dL 61-437 [facility] IgG [Mass/volume] in Serum o r PlasmaOrdered By: Ethan Cummings on 04-10-2022 IgG [Mass/Vol] 1207 mg/dL 603-1613 [facility] IgM [Mass/volume] in Serum o r PlasmaOrdered By: Ethan Cummings on 04-10-2022 IgM [Mass/Vol] 94 mg/dL 20-172 [facility] Comment on above: Performed at: [address] [id number] Director: Alexis Winslow PhD, Phone: [phone] Immunoglobulin light chains. kappa.free [Mass/volume] in SerumOrdered By: Ethan Cummings on 04-10-2022 Immunoglobulin light chains.kappa.free (S) [Mass/Vol] 58.6 mg/L 3.3-19.4 [facility] Immunoglobulin light chains. kappa.free/Immunoglobulin light chains.lambda.free [MassOrdered By: Ethan Cummings on 04-10-2022 Immunoglobulin light chains.kappa.free/Immun oglobulin light chains.lambda.free (S) [Mass ratio] 1.42 0.26-1.65 [facility] Comment on above: Performed at: [employer] [facility] [address] [id number] Director: Alexis Winslow PhD, Phone: [phone] Immunoglobulin light chains. lambda.free [Mass/volume] in Serum or PlasmaOrdered By: Ethan Cummings on 04-10-2022 Immunoglobulin light chains.lambda.free [Mass/Vol] 41.2 mg/L 5.7-26.3 [facility] Laboratory - Hematology and Cell countsOrdered By: Ethan Cummings on 04-10-2022 Nucleated RBC/100 WBC (Bld) [Ratio] 0.0 % 0-0.5 [facility] No Panel InformationOrdered By: Ethan Cummings on 04-10-2022 BCR/abl See comment [facility] Comment on above: See report. Scanned copy available in EMR. CBC Comment See comment [facility] Comment on above: Slide referred to raquel thologist for review Platelet Estimate Normal Normal [facility] Platelet Morphology Comment Normal Normal [facility] Protein Electrophoresis M-Brenden Not observed g/dL Not Observed [facility] Protein Electrophoresis Note See comment . [facility] Comment on above: Protein electrophore sis scan will follow via computer,mail, or insurance adjustor delivery.Performed at: [email or web address] [facility] [address] [id number] Director: Alexis Winslow PhD, Phone: [phone] Serum Immunofixation See comment . [facility] Comment on above: No monoclonality det ected. Protein [Mass/volume] in Ser um or PlasmaOrdered By: Ethan Cummings on 04-10-2022 Protein [Mass/Vol] 7.4 g/dL 6.0-8.5 [facility] RBC morphologyOrdered By: Francis Cummings on 04-10-2022 RBC morphology finding Nom (Bld) Normal [facility] Serum globulin measurement ( mass/volume)Ordered By: Ethan Cummings on 04-10-2022 Globulin (S) [Mass/Vol] 3.6 g/dL 2.2-3.9 [facility] Serum or plasma albumin/glob ulin mass ratioOrdered By: Ethan Cummings on 04-10-2022 Albumin/Globulin [Mass ratio] 1.1 {ratio} 0.7-1.7 [facility] Serum or plasma alpha 1 glob ulin measurement by electrophoresis (mass/volume)Ordered By: Ethan Cummings on 04-10-2022 Alpha 1 globulin Elph [Mass/Vol] 0.2 g/dL 0.0-0.4 [facility] Serum or plasma alpha 2 glob ulin measurement by electrophoresis (mass/volume)Ordered By: Ethan Cummings on 04-10-2022 Alpha 2 globulin Elph [Mass/Vol] 0.9 g/dL 0.4-1.0 [facility] Serum or plasma beta globuli n measurement by electrophoresis (mass/volume)Ordered By: Ethan Cummings on 04-10-2022 Beta globulin Elph [Mass/Vol] 1.2 g/dL 0.7-1.3 [facility] Serum or plasma gamma globul in measurement by electrophoresis (mass/volume)Ordered By: Ethan Cummings on 04-10-2022 Gamma globulin Elph [Mass/Vol] 1.3 g/dL 0.4-1.8 [facility] Serum or plasma methylmalona te measurement (moles/volume)Ordered By: Ethan Cummings on 04-10-2022 Methylmalonate [Moles/Vol] 668 nmol/L 0-378 [facility] Comment on above: This test was develo ped and its performance characteristicsdetermined by [employer]. It has not been cleared orapproved by the Food and Drug Administration.Performed at: [address] [id number] Director: Natalia Vergara MD, Phone: [phone] XR foot LT min 3V*on 022 XR foot LT min 3V* [facility] [employer] Other XR foot LT min 3V* [facility] [employer] Other XR foot LT min 3V* [address] [place] [address] [employer] Other XR foot LT min 3V* [place] [address] [facility] [employer] Other XR foot LT min 3V* XRay Report [employer] Other XR foot LT min 3V* Signed [employer] Other XR foot LT min 3V* Patient: Adwoa [place] MR#: [id number] [facility] [employer] Other XR foot LT min 3V* 7 [employer] Other XR foot LT min 3V* : 1955 Acct:[id number] [employer] Other XR foot LT min 3V* Age/Sex: 66 / M ADM Date: 02/19/22 [employer] Other XR foot LT min 3V* Loc: XDUCLY Room: Ty pe: REG CLI [employer] Other XR foot LT min 3V* Attending Dr: Ruthie EUCEDA [employer] Other XR foot LT min 3V* Ordering Provider: KINSEY Mancia [employer] Other XR foot LT min 3V* Date of Service: 02/19/22 [employer] Other XR foot LT min 3V* XR/XR foot LT min 3V*: Left foot pain [employer] Other XR foot LT min 3V* Copies to: Ruthie Guzman NP-C [employer] Other XR foot LT min 3V* LEFT FOOT - 3 views [employer] Other XR foot LT min 3V* CLINICAL HISTORY: Le ft foot pain. [employer] Other XR foot LT min 3V* COMPARISON: Left tessie t series 02/09/2020 [employer] Other XR foot LT min 3V* FINDINGS: [employer] Other XR foot LT min 3V* Soft tissue swelling is noted. Since the prior study, as been interval partial amputation of the [employer] Other XR foot LT min 3V* first digit. 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 Questionable [employer] Other XR foot LT min 3V* subluxation/dislocat ion involving the PIP joint of the second digit. No definite plain film [employer] Other XR foot LT min 3V* evidence of osteomyelitis. [employer] Other XR foot LT min 3V* X R/XR foot LT min 3V* [employer] Other XR foot LT min 3V* IMPRESSION: [employer] Other XR foot LT min 3V* QUESTIONABLE SUBLUXATION/DISLOCATION INVOLVING THE PIP JOINT OF THE SECOND DIGIT. SOFT TISSUE [employer] Other XR foot LT min 3V* SWELLING. [employer] Other XR foot LT min 3V* Impression dictated by: Brennan Salgado Jr., D.OWesley02/19/2022 11:52 AM [employer] Other XR foot LT min 3V* Dictation Location: RADIO-PC-09 [facility] [employer] Other XR foot LT min 3V* Transcribed By: PWS 02/19/22 1152 [facility] [employer] Other XR foot LT min 3V* Dictated By: Brennan Salgado Jr, DO 02/19/22 1148 [facility] [employer] Other XR foot LT min 3V* Signed By: [employer] Other XR foot LT min 3V* 02/19/22 1152 [facility] [employer] Other Glucose - FINGER STICKon Glucose [Mass/Vol] 166 mg/dL [facility] [employer] Other A1C HEMOGLOBINon 11-16-2021 HbA1c (Bld) [Mass fraction] 10.7 % [facility] [employer] Other Glucose - FINGER STICKon Glucose [Mass/Vol] 205 mg/dL [facility] [employer] Other HbA1c (Bld) [Mass fraction]o n 11-16-2021 A1C HEMOGLOBIN [facility] [employer] Other Glucose - FINGER STICKon Glucose [Mass/Vol] 158 mg/dL [facility] [employer] Other BASIC METABOLIC PANELon 05-3 Calcium [Mass/Vol] 9.9 mg/dL Normal 8.6-10.3 [facility] Comment on above: Order Comment: No: D o not add to previous draw Performed By: #### 9 9909, 29684, 40908, 17827 #### [facility] [address] [place] [address], [facility] [place] [Moles/Vol] 93 mmol/L Low 98-107 [facility] Comment on above: Order Comment: No: D o not add to previous draw Performed By: #### 9 9909, 93352, 29441, 19310 #### [facility] [address] [place] [address], [place] CO2 [Moles/Vol] 32 mmol/L High 21-31 [facility] Comment on above: Order Comment: No: D o not add to previous draw Performed By: #### 9 9909, 54043, 53995, 20190 #### [facility] [address] [place] [address], [place] Creatinine [Mass/Vol] 1.89 mg/dL High 0.70-1.30 [facility] Comment on above: Order Comment: No: D o not add to previous draw Performed By: #### 9 9909, 33470, 09463, 06937 #### [facility] [address] [place] [address], [place] eGFR- 43 ml/min/1.73sq m Abnormal >60 [facility] Comment on above: Order Comment: No: D o not add to previous draw Performed By: #### 9 9909, 46634, 82353, 47557 #### [facility] [address] [place] [address], [place] eGFR- non- 36 ml/min/1.73sq m Abnormal >60 [facility] Comment on above: Order Comment: No: D o not add to previous draw Performed By: #### 9 9909, 72838, 30786, 74659 #### [facility] [address] [place] [address], [place] Glucose [Mass/Vol] 217 mg/dL High 70-100 [facility] Comment on above: Order Comment: No: D o not add to previous draw Performed By: #### 9 9909, 96255, 89110, 75660 #### [facility] [address] [place] [address], [place] Potassium [Moles/Vol] 4.2 mmol/L Normal 3.5-5.1 [facility] Comment on above: Order Comment: No: D o not add to previous draw Performed By: #### 9 9909, 25451, 54454, 14061 #### [facility] [address] Sodium [Moles/Vol] 135 mmol/L Low 136-145 [facility] Comment on above: Order Comment: No: D o not add to previous draw Performed By: #### 9 9909, 24902, 17731, 29257 #### [facility] [address] Urea nitrogen [Mass/Vol] 53 mg/dL High 7-25 [facility] Comment on above: Order Comment: No: D o not add to previous draw Performed By: #### 9 9909, 56422, 06868, 08396 #### [facility] [address] POC GLUCOSE LABon 04-17-2021 Glucose [Mass/Vol] 274 mg/dL High 70-100 [facility] Comment on above: Performed By: #### 8 5499 #### [facility] [address] [facility]. [address] PROTHROMBIN TIMEon INR Coag (PPP) [Relative time] 1.76 {INR} High 0.91-1.16 [facility] Comment on above: Order Comment: No: D o not add to previous draw Result Comment: ACCC P RECOMMENDED INR FOR WARFARIN THERAPY ------- CONDITION INR PROPHYLAXIS OF VENOUS THROMBOSIS 2-3 (HIGH-RISK SURGERY) TREATMENT OF VENOUS THROMBOSIS 2-3 TREATMENT OF PULMONARY EMBOLISM 2-3 PREVENTION OF SYSTEMIC EMBOLISM: 2-3 ACUTE MYOCARDIAL INFARCTION TISSUE HEART VALVES VALVULAR HEART DISEASE ATRIAL FIBRILLATION RECURRENT SYSTEMIC EMBOLISM MECHANICAL HEART VALVE 2.5-3.5 FROM: ORAL ANTICOAGULANTS. MECHANISM OF ACTION, CLINICAL EFFECTIVENESS, AND OPTIMAL THERAPEUTIC RANGE. CHEST 1995;108:231S-246S. Performed By: #### 3 5200 #### [facility] [address] PT Coag (PPP) [Time] 20.6 s High 12.3-14.8 [facility] Comment on above: Order Comment: No: D o not add to previous draw Result Comment: ALL RESULTS MUST BE INTERPRETED WITH RESPECT TO BLOOD DRAWING ARTIFACT OR DILUTION ERROR OF ANTICOAGULANT AT THE TIME OF SAMPLING. Performed By: #### 3 5200 #### [facility] [address] INR Coag (PPP) [Relative time] 1.64 {INR} High 0.91-1.16 [facility] Comment on above: Order Comment: No: D o not add to previous draw Result Comment: ACCC P RECOMMENDED INR FOR WARFARIN THERAPY ------- CONDITION INR PROPHYLAXIS OF VENOUS THROMBOSIS 2-3 (HIGH-RISK SURGERY) TREATMENT OF VENOUS THROMBOSIS 2-3 TREATMENT OF PULMONARY EMBOLISM 2-3 PREVENTION OF SYSTEMIC EMBOLISM: 2-3 ACUTE MYOCARDIAL INFARCTION TISSUE HEART VALVES VALVULAR HEART DISEASE ATRIAL FIBRILLATION RECURRENT SYSTEMIC EMBOLISM MECHANICAL HEART VALVE 2.5-3.5 FROM: ORAL ANTICOAGULANTS. MECHANISM OF ACTION, CLINICAL EFFECTIVENESS, AND OPTIMAL THERAPEUTIC RANGE. CHEST 1995;108:231S-246S. Performed By: #### 3 5200 #### [facility] [address] [place] [address], [facility] PT Coag (PPP) [Time] 19.5 s High 12.3-14.8 [facility] Comment on above: Order Comment: No: D o not add to previous draw Result Comment: ALL RESULTS MUST BE INTERPRETED WITH RESPECT TO BLOOD DRAWING ARTIFACT OR DILUTION ERROR OF ANTICOAGULANT AT THE TIME OF SAMPLING. Performed By: #### 3 5200 #### [facility] [address] [place] [address], [facility] BASIC METABOLIC PANELon 05-2 Calcium [Mass/Vol] 10.0 mg/dL Normal 8.6-10.3 [facility] Comment on above: Order Comment: No: D o not add to previous draw Performed By: #### 1 69, 28661 #### [facility] [address] [place] [address], [place] Chloride [Moles/Vol] 92 mmol/L Low 98-107 [facility] Comment on above: Order Comment: No: D o not add to previous draw Performed By: #### 1 69, 12736 #### [facility] [address] [place] [address], [place] CO2 [Moles/Vol] 35 mmol/L High 21-31 [facility] Comment on above: Order Comment: No: D o not add to previous draw Performed By: #### 1 69, 05374 #### [facility] [address] [place] [address], [place] Creatinine [Mass/Vol] 1.89 mg/dL High 0.70-1.30 [facility] Comment on above: Order Comment: No: D o not add to previous draw Performed By: #### 1 69, 88655 #### [facility] [address] [place] [address], [place] eGFR- 43 ml/min/1.73sq m Abnormal >60 [facility] Comment on above: Order Comment: No: D o not add to previous draw Performed By: #### 1 69, 30410 #### [facility] [address] [place] [address], [facility] eGFR- non- 36 ml/min/1.73sq m Abnormal >60 [facility] Comment on above: Order Comment: No: D o not add to previous draw Performed By: #### 1 69, 94753 #### [facility] [address] [place] [address], [facility] Glucose [Mass/Vol] 187 mg/dL High 70-100 [facility] Comment on above: Order Comment: No: D o not add to previous draw Performed By: #### 1 69, 13150 #### [facility] [address] [place] [address], [facility] Potassium [Moles/Vol] 4.1 mmol/L Normal 3.5-5.1 [facility] Comment on above: Order Comment: No: D o not add to previous draw Performed By: #### 1 69, 52722 #### [facility] [address] [place] [address], [facility] Sodium [Moles/Vol] 137 mmol/L Normal 136-145 [facility] Comment on above: Order Comment: No: D o not add to previous draw Performed By: #### 1 69, 69994 #### [facility] [address] [place] [address], [facility] Urea nitrogen [Mass/Vol] 52 mg/dL High 7-25 [facility] Comment on above: Order Comment: No: D o not add to previous draw Performed By: #### 1 69, 26898 #### [facility] [address] [place] [address], [facility] CBC W/DIFFon 04-16-2021 ABS IMM GRANS 0.0 10*3/uL Normal 0.0-0.2 [facility] Comment on above: Order Comment: No: D o not add to previous draw Performed By: #### 3 5200 #### [facility] [address] [place] [address], [facility] ABS NEUTROPHILS 5.9 10*3/uL Normal 1.6-7.6 [facility] Comment on above: Order Comment: No: D o not add to previous draw Performed By: #### 3 5200 #### [facility] [address] [facility] [place] [address], [facility] Basophils (Bld) [#/Vol] 0.0 10*3/uL Normal 0.0-0.2 [facility] Comment on above: Order Comment: No: D o not add to previous draw Performed By: #### 3 5200 #### [facility] [address] [place] [address], [facility] Basophils/100 WBC (Bld) 0.3 % Normal 0.0-1.0 T [facility] Comment on above: Order Comment: No: D o not add to previous draw Performed By: #### 3 5200 #### [facility] [address] [place] [address], [facility] Eosinophils (Bld) [#/Vol] 0.4 10*3/uL Normal 0.0-0.5 [facility] Comment on above: Order Comment: No: D o not add to previous draw Performed By: #### 3 5200 #### [facility] [address] [place] [address], [facility] Eosinophils/100 WBC (Bld) 4.3 % Normal 0.0-6.0 [facility] Comment on above: Order Comment: No: D o not add to previous draw Performed By: #### 3 5200 #### [facility] [address] [place] [id number], [facility] Erythrocyte distribution width (RBC) [Ratio] 16.1 % High 11.5-15.0 [facility] Comment on above: Order Comment: No: D o not add to previous draw Performed By: #### 3 5200 #### [facility] [address] [facility] [place] [address], [facility] Hematocrit (Bld) [Volume fraction] 37.0 % Low 39.0-50.0 [facility] Comment on above: Order Comment: No: D o not add to previous draw Performed By: #### 3 5200 #### [facility] [address] [facility] [place] [address], [facility] Hemoglobin (Bld) [Mass/Vol] 11.4 g/dL Low 13.0-17.0 [facility] Comment on above: Order Comment: No: D o not add to previous draw Performed By: #### 3 5200 #### [facility] [address] [facility] [place] [address], [facility] IMMATURE GRANS 0.3 % Normal 0.0-1.0 [facility] Comment on above: Order Comment: No: D o not add to previous draw Performed By: #### 3 5200 #### [facility] [address] [facility] [place] [address], [facility] Lymphocytes (Bld) [#/Vol] 1.8 10*3/uL Normal 1.2-4.0 [facility] Comment on above: Order Comment: No: D o not add to previous draw Performed By: #### 3 5200 #### [facility] [address] [facility] [place] [address], [facility] Lymphocytes/100 WBC (Bld) 20.7 % Normal 20.0-45.0 [facility] Comment on above: Order Comment: No: D o not add to previous draw Performed By: #### 3 5200 #### [facility] [address] [facility] [place] [address], [facility] MCH (RBC) [Entitic mass] 27.1 pg Normal 27.0-33.0 [facility] Comment on above: Order Comment: No: D o not add to previous draw Performed By: #### 3 5200 #### [facility] [address] [place] [address], [facility] MCHC (RBC) [Mass/Vol] 30.8 g/dL Low 32.0-35.0 [facility] Comment on above: Order Comment: No: D o not add to previous draw Performed By: #### 3 5200 #### [facility] [address] [place] [address], [facility] MCV (RBC) [Entitic vol] 88.1 fL Normal 82.0-98.0 T [facility] Comment on above: Order Comment: No: D o not add to previous draw Performed By: #### 3 5200 #### [facility] [address] [facility] [place] [id number], [facility] Monocytes (Bld) [#/Vol] 0.7 10*3/uL Normal 0.1-1.0 [facility] Comment on above: Order Comment: No: D o not add to previous draw Performed By: #### 3 5200 #### [facility] [address] [place] [address], [facility] MONOS 7.9 % Normal 5.0-12.0 [facility] Comment on above: Order Comment: No: D o not add to previous draw Performed By: #### 3 5200 #### [facility] [address] [place] [id number], [facility] Neutrophils/100 WBC (Bld) 66.5 % Normal 40.0-72.0 [facility] Comment on above: Order Comment: No: D o not add to previous draw Performed By: #### 3 5200 #### [facility] [address] [place] [id number], [facility] Nucleated RBC/100 WBC (Bld) [Ratio] 0 % Normal 0-0 [facility] Comment on above: Order Comment: No: D o not add to previous draw Performed By: #### 3 5200 #### [facility] [address] [place] [address], [facility] PLAT CNT 189 10*3/uL Normal 150-400 [facility] Comment on above: Order Comment: No: D o not add to previous draw Performed By: #### 3 5200 #### [facility] [address] [place] [address], [facility] RBC (Bld) [#/Vol] 4.20 10*6/uL Normal 4.20-5.70 [facility] Comment on above: Order Comment: No: D o not add to previous draw Performed By: #### 3 5200 #### [facility] [address] [place] [id number], [facility] WBC (Bld) [#/Vol] 8.82 10*3/uL Normal 4.00-10.60 [facility] Comment on above: Order Comment: No: D o not add to previous draw Performed By: #### 3 5200 #### [facility] [address] [address], [facility] HEMOGLOBIN A1Con 04-16-2021 Glucose [Moles/Vol] 180 mmol/L Normal [facility] Comment on above: Order Comment: Yes: Add to Previous draw if able Performed By: #### 8 5499 #### [facility] [address] [facility] [address], [facility] HbA1c (Bld) [Mass fraction] 7.9 % High 4.0-6.0 [facility] Comment on above: Order Comment: Yes: Add to Previous draw if able Performed By: #### 8 5499 #### [facility] [address] [place] [address], [facility] MAGNESIUM BLOODon 04-16-2021 Magnesium [Mass/Vol] 2.3 mg/dL Normal 1.9-2.7 [facility] Comment on above: Order Comment: No: D o not add to previous draw Performed By: #### 1 0070, 09981 #### [facility] [address] [place] [address], [facility] POC GLUCOSE LABon 04-16-2021 Glucose [Mass/Vol] 357 mg/dL High 70-100 [facility] Comment on above: Performed By: #### 8 5499 #### [facility] [address] [place] [address], [place] Glucose [Mass/Vol] 149 mg/dL High 70-100 [facility] Comment on above: Performed By: #### 9 9909, 58829, 86454, 94680 #### [facility] [address] [place] [address], [place] Glucose [Mass/Vol] 243 mg/dL High 70-100 [facility] Comment on above: Performed By: #### 8 5499 #### [facility] [address] [place] [address], [place] Glucose [Mass/Vol] 181 mg/dL High 70-100 [facility] Comment on above: Performed By: #### 9 9909, 66035, 78483, 54341 #### [facility] [address] [place] [address], [place] PROTHROMBIN TIMEon INR Coag (PPP) [Relative time] 1.63 {INR} High 0.91-1.16 [facility] Comment on above: Order Comment: No: D o not add to previous draw Result Comment: ACCC P RECOMMENDED INR FOR WARFARIN THERAPY ------- CONDITION INR PROPHYLAXIS OF VENOUS THROMBOSIS 2-3 (HIGH-RISK SURGERY) TREATMENT OF VENOUS THROMBOSIS 2-3 TREATMENT OF PULMONARY EMBOLISM 2-3 PREVENTION OF SYSTEMIC EMBOLISM: 2-3 ACUTE MYOCARDIAL INFARCTION TISSUE HEART VALVES VALVULAR HEART DISEASE ATRIAL FIBRILLATION RECURRENT SYSTEMIC EMBOLISM MECHANICAL HEART VALVE 2.5-3.5 FROM: ORAL ANTICOAGULANTS. MECHANISM OF ACTION, CLINICAL EFFECTIVENESS, AND OPTIMAL THERAPEUTIC RANGE. CHEST 1995;108:231S-246S. Performed By: #### 3 5200 #### [facility] [address] [place] [address], [facility] PT Coag (PPP) [Time] 19.4 s High 12.3-14.8 [facility] Comment on above: Order Comment: No: D o not add to previous draw Result Comment: ALL RESULTS MUST BE INTERPRETED WITH RESPECT TO BLOOD DRAWING ARTIFACT OR DILUTION ERROR OF ANTICOAGULANT AT THE TIME OF SAMPLING. Performed By: #### 3 5200 #### [facility] [address] [place] [address], [facility] INR Coag (PPP) [Relative time] 1.66 {INR} High 0.91-1.16 [facility] Comment on above: Order Comment: No: D o not add to previous draw Result Comment: ACCC P RECOMMENDED INR FOR WARFARIN THERAPY ------- CONDITION INR PROPHYLAXIS OF VENOUS THROMBOSIS 2-3 (HIGH-RISK SURGERY) TREATMENT OF VENOUS THROMBOSIS 2-3 TREATMENT OF PULMONARY EMBOLISM 2-3 PREVENTION OF SYSTEMIC EMBOLISM: 2-3 ACUTE MYOCARDIAL INFARCTION TISSUE HEART VALVES VALVULAR HEART DISEASE ATRIAL FIBRILLATION RECURRENT SYSTEMIC EMBOLISM MECHANICAL HEART VALVE 2.5-3.5 FROM: ORAL ANTICOAGULANTS. MECHANISM OF ACTION, CLINICAL EFFECTIVENESS, AND OPTIMAL THERAPEUTIC RANGE. CHEST 1995;108:231S-246S. Performed By: #### 3 5200 #### [facility] [address] [place] [address], [facility] PT Coag (PPP) [Time] 19.7 s High 12.3-14.8 [facility] Comment on above: Order Comment: No: D o not add to previous draw Result Comment: ALL RESULTS MUST BE INTERPRETED WITH RESPECT TO BLOOD DRAWING ARTIFACT OR DILUTION ERROR OF ANTICOAGULANT AT THE TIME OF SAMPLING. Performed By: #### 3 5200 #### [facility] [address] [place] [address], [facility] BASIC METABOLIC PANELon 05-2 Calcium [Mass/Vol] 9.7 mg/dL Normal 8.6-10.3 [facility] Comment on above: Order Comment: No: D o not add to previous draw Performed By: #### 9 9909, 61840, 27559, 84143 #### [facility] [address] [place] [address], [facility] Chloride [Moles/Vol] 92 mmol/L Low 98-107 [facility] Comment on above: Order Comment: No: D o not add to previous draw Performed By: #### 9 9909, 14563, 33214, 22999 #### [facility] [address] [place] [address], [facility] CO2 [Moles/Vol] 36 mmol/L High 21-31 [facility] Comment on above: Order Comment: No: D o not add to previous draw Performed By: #### 9 9909, 10975, 12643, 24448 #### [facility] [address] [place] [address], [place] Creatinine [Mass/Vol] 1.86 mg/dL High 0.70-1.30 [facility] Comment on above: Order Comment: No: D o not add to previous draw Performed By: #### 9 9909, 72992, 31461, 91246 #### [facility] [address] [place] [address], [place] eGFR- 44 ml/min/1.73sq m Abnormal >60 [facility] Comment on above: Order Comment: No: D o not add to previous draw Performed By: #### 9 9909, 38617, 09315, 20461 #### [facility] [address] [place] [address], [place] eGFR- non- 37 ml/min/1.73sq m Abnormal >60 [facility] Comment on above: Order Comment: No: D o not add to previous draw Performed By: #### 9 9909, 86386, 28371, 11209 #### [facility] [address] [place] [address], [place] Glucose [Mass/Vol] 167 mg/dL High 70-100 [facility] Comment on above: Order Comment: No: D o not add to previous draw Performed By: #### 9 9909, 47797, 60808, 53996 #### [facility] [address] [place] [address], [place] Potassium [Moles/Vol] 4.0 mmol/L Normal 3.5-5.1 [facility] Comment on above: Order Comment: No: D o not add to previous draw Performed By: #### 9 9909, 88789, 55417, 25760 #### [facility] [address] [place] [address], [place] Sodium [Moles/Vol] 138 mmol/L Normal 136-145 [facility] Comment on above: Order Comment: No: D o not add to previous draw Performed By: #### 9 9909, 01766, 16244, 13670 #### [facility] [address] [place] [address], [place] Urea nitrogen [Mass/Vol] 44 mg/dL High 7-25 [facility] Comment on above: Order Comment: No: D o not add to previous draw Performed By: #### 9 9909, 27043, 68808, 89466 #### [facility] [address] [place] [address], [facility] CBC W/DIFFon 04-15-2021 ABS IMM GRANS 0.0 10*3/uL Normal 0.0-0.2 [facility] Comment on above: Order Comment: No: D o not add to previous draw Performed By: #### 3 5200 #### [facility] [address] [place] [address], [facility] ABS NEUTROPHILS 6.3 10*3/uL Normal 1.6-7.6 [facility] Comment on above: Order Comment: No: D o not add to previous draw Performed By: #### 3 5200 #### [facility] [address] [place] [address], [facility] Basophils (Bld) [#/Vol] 0.0 10*3/uL Normal 0.0-0.2 [facility] Comment on above: Order Comment: No: D o not add to previous draw Performed By: #### 3 5200 #### [facility] [address] [facility] [place] [place] [address], [facility] Basophils/100 WBC (Bld) 0.3 % Normal 0.0-1.0 [facility] Comment on above: Order Comment: No: D o not add to previous draw Performed By: #### 3 5200 #### [facility] [address] [place] [address], [facility] Eosinophils (Bld) [#/Vol] 0.4 10*3/uL Normal 0.0-0.5 [facility] Comment on above: Order Comment: No: D o not add to previous draw Performed By: #### 3 5200 #### [facility] [address] [facility] [place] [place] [id number], [facility] Eosinophils/100 WBC (Bld) 4.5 % Normal 0.0-6.0 [facility] Comment on above: Order Comment: No: D o not add to previous draw Performed By: #### 3 5200 #### [facility] [address] [place] [address], [facility] Erythrocyte distribution width (RBC) [Ratio] 16.3 % High 11.5-15.0 [facility] Comment on above: Order Comment: No: D o not add to previous draw Performed By: #### 3 5200 #### [facility] [address] [place] [address], [facility] Hematocrit (Bld) [Volume fraction] 37.4 % Low 39.0-50.0 [facility] Comment on above: Order Comment: No: D o not add to previous draw Performed By: #### 3 5200 #### [facility] [address] [place] [address], [facility] Hemoglobin (Bld) [Mass/Vol] 11.4 g/dL Low 13.0-17.0 [facility] Comment on above: Order Comment: No: D o not add to previous draw Performed By: #### 3 5200 #### [facility] [address] [place] [address], [facility] IMMATURE GRANS 0.3 % Normal 0.0-1.0 [facility] Comment on above: Order Comment: No: D o not add to previous draw Performed By: #### 3 5200 #### [facility] [address] [place] [address], [facility] Lymphocytes (Bld) [#/Vol] 1.8 10*3/uL Normal 1.2-4.0 [facility] Comment on above: Order Comment: No: D o not add to previous draw Performed By: #### 3 5200 #### [facility] [address] [place] [id number], [facility] Lymphocytes/100 WBC (Bld) 19.1 % Low 20.0-45.0 [facility] Comment on above: Order Comment: No: D o not add to previous draw Performed By: #### 3 5200 #### [facility] [address] [place] [address], [facility] MCH (RBC) [Entitic mass] 27.2 pg Normal 27.0-33.0 [facility] Comment on above: Order Comment: No: D o not add to previous draw Performed By: #### 3 5200 #### [facility] [address] [place] [address], [facility] MCHC (RBC) [Mass/Vol] 30.5 g/dL Low 32.0-35.0 [facility] Comment on above: Order Comment: No: D o not add to previous draw Performed By: #### 3 5200 #### [facility] [address] [facility] [place] [address], [facility] MCV (RBC) [Entitic vol] 89.3 fL Normal 82.0-98.0 [facility] Comment on above: Order Comment: No: D o not add to previous draw Performed By: #### 3 5200 #### [facility] [address] [facility] [place] [address], [facility] Monocytes (Bld) [#/Vol] 0.7 10*3/uL Normal 0.1-1.0 [facility] Comment on above: Order Comment: No: D o not add to previous draw Performed By: #### 3 5200 #### [facility] [address] [facility] [place] [id number], [facility] MONOS 7.4 % Normal 5.0-12.0 [facility] Comment on above: Order Comment: No: D o not add to previous draw Performed By: #### 3 5200 #### [facility] [address] [place] [id number], [facility] Neutrophils/100 WBC (Bld) 68.4 % Normal 40.0-72.0 [facility] Comment on above: Order Comment: No: D o not add to previous draw Performed By: #### 3 5200 #### [facility] [address] [place] [address], [facility] Nucleated RBC/100 WBC (Bld) [Ratio] 0 % Normal 0-0 [facility] Comment on above: Order Comment: No: D o not add to previous draw Performed By: #### 3 5200 #### [facility] [address] [place] [address], [place] PLAT CNT 177 10*3/uL Normal 150-400 [facility] Comment on above: Order Comment: No: D o not add to previous draw Performed By: #### 3 5200 #### [facility] [address] [place] [address], [facility] RBC (Bld) [#/Vol] 4.19 10*6/uL Low 4.20-5.70 [facility] Comment on above: Order Comment: No: D o not add to previous draw Performed By: #### 3 5200 #### [facility] [address] [place] [address], [facility] WBC (Bld) [#/Vol] 9.21 10*3/uL Normal 4.00-10.60 [facility] Comment on above: Order Comment: No: D o not add to previous draw Performed By: #### 3 5200 #### [facility] [address] [facility] [place] [address], [facility] MAGNESIUM BLOODon 04-15-2021 Magnesium [Mass/Vol] 2.3 mg/dL Normal 1.9-2.7 [facility] Comment on above: Order Comment: No: D o not add to previous draw Performed By: #### 9 9909, 84947, 87658, 56142 #### [facility] [address] [place] [address], [facility] POC GLUCOSE LABon 04-15-2021 Glucose [Mass/Vol] 230 mg/dL High 70-100 [facility] Comment on above: Performed By: #### 8 5499 #### [facility] [address] [place] [address], [facility] Glucose [Mass/Vol] 260 mg/dL High 70-100 [facility] Comment on above: Performed By: #### 8 5499 #### [facility] [address] [place] [address], [facility] Glucose [Mass/Vol] 273 mg/dL High 70-100 [facility] Comment on above: Performed By: #### 9 9909, 29377, 57959, 60814 #### [facility] [address] [facility] [place] [address], [facility] Glucose [Mass/Vol] 168 mg/dL High 70-100 [facility] Comment on above: Performed By: #### 8 5499 #### [facility] [address] PROTHROMBIN TIMEon 1 INR Coag (PPP) [Relative time] 1.77 {INR} High 0.91-1.16 [facility] Comment on above: Order Comment: No: D o not add to previous draw Result Comment: ACCC P RECOMMENDED INR FOR WARFARIN THERAPY ------- CONDITION INR PROPHYLAXIS OF VENOUS THROMBOSIS 2-3 (HIGH-RISK SURGERY) TREATMENT OF VENOUS THROMBOSIS 2-3 TREATMENT OF PULMONARY EMBOLISM 2-3 PREVENTION OF SYSTEMIC EMBOLISM: 2-3 ACUTE MYOCARDIAL INFARCTION TISSUE HEART VALVES VALVULAR HEART DISEASE ATRIAL FIBRILLATION RECURRENT SYSTEMIC EMBOLISM MECHANICAL HEART VALVE 2.5-3.5 FROM: ORAL ANTICOAGULANTS. MECHANISM OF ACTION, CLINICAL EFFECTIVENESS, AND OPTIMAL THERAPEUTIC RANGE. CHEST 1995;108:231S-246S. Performed By: #### 3 5200 #### [facility] [address] [place] [address], [facility] PT Coag (PPP) [Time] 20.7 s High 12.3-14.8 [facility] Comment on above: Order Comment: No: D o not add to previous draw Result Comment: ALL RESULTS MUST BE INTERPRETED WITH RESPECT TO BLOOD DRAWING ARTIFACT OR DILUTION ERROR OF ANTICOAGULANT AT THE TIME OF SAMPLING. Performed By: #### 3 5200 #### [facility] [address] [facility] [place] [address], [facility] INR Coag (PPP) [Relative time] 1.80 {INR} High 0.91-1.16 [facility] Comment on above: Order Comment: Unkno wn Result Comment: ACCC P RECOMMENDED INR FOR WARFARIN THERAPY ------- CONDITION INR PROPHYLAXIS OF VENOUS THROMBOSIS 2-3 (HIGH-RISK SURGERY) TREATMENT OF VENOUS THROMBOSIS 2-3 TREATMENT OF PULMONARY EMBOLISM 2-3 PREVENTION OF SYSTEMIC EMBOLISM: 2-3 ACUTE MYOCARDIAL INFARCTION TISSUE HEART VALVES VALVULAR HEART DISEASE ATRIAL FIBRILLATION RECURRENT SYSTEMIC EMBOLISM MECHANICAL HEART VALVE 2.5-3.5 FROM: ORAL ANTICOAGULANTS. MECHANISM OF ACTION, CLINICAL EFFECTIVENESS, AND OPTIMAL THERAPEUTIC RANGE. CHEST 1995;108:231S-246S. Performed By: #### 8 5499 #### [facility] [address] [place] [address], [place] PT Coag (PPP) [Time] 21.0 s High 12.3-14.8 [facility] Comment on above: Order Comment: Unkno wn Result Comment: ALL RESULTS MUST BE INTERPRETED WITH RESPECT TO BLOOD DRAWING ARTIFACT OR DILUTION ERROR OF ANTICOAGULANT AT THE TIME OF SAMPLING. Performed By: #### 8 5499 #### [facility] [address] [place] [address], [facility] BASIC METABOLIC PANELon 05-2 Calcium [Mass/Vol] 9.4 mg/dL Normal 8.6-10.3 [facility] Comment on above: Order Comment: No: D o not add to previous draw Performed By: #### 8 5499 #### [facility] [address] [place] [address], [facility] Chloride [Moles/Vol] 95 mmol/L Low 98-107 [facility] Comment on above: Order Comment: No: D o not add to previous draw Performed By: #### 8 5499 #### [facility] [address] [place] [address], [place] CO2 [Moles/Vol] 35 mmol/L High 21-31 [facility] Comment on above: Order Comment: No: D o not add to previous draw Performed By: #### 8 5499 #### [facility] [address] [place] [address], [place] Creatinine [Mass/Vol] 1.77 mg/dL High 0.70-1.30 [facility] Comment on above: Order Comment: No: D o not add to previous draw Performed By: #### 8 5499 #### [facility] [address] [place] [address], [facility] eGFR- 47 ml/min/1.73sq m Abnormal >60 [facility] Comment on above: Order Comment: No: D o not add to previous draw Performed By: #### 8 5499 #### [facility] [address] [place] [address], [place] eGFR- non- 39 ml/min/1.73sq m Abnormal >60 [facility] Comment on above: Order Comment: No: D o not add to previous draw Performed By: #### 8 5499 #### [facility] [address] [place] [address], [facility] Glucose [Mass/Vol] 135 mg/dL High 70-100 [facility] Comment on above: Order Comment: No: D o not add to previous draw Performed By: #### 8 5499 #### [facility] [address] [place] [address], [facility] Potassium [Moles/Vol] 3.7 mmol/L Normal 3.5-5.1 [facility] Comment on above: Order Comment: No: D o not add to previous draw Performed By: #### 8 5499 #### [facility] [address] [place] [address], [facility] Sodium [Moles/Vol] 140 mmol/L Normal 136-145 [facility] Comment on above: Order Comment: No: D o not add to previous draw Performed By: #### 8 5499 #### [facility] [address] [facility] [place] [address], [facility] Urea nitrogen [Mass/Vol] 43 mg/dL High 7-25 [facility] Comment on above: Order Comment: No: D o not add to previous draw Performed By: #### 8 5499 #### [facility] [address] [place] [address], [facility] CBC W/DIFFon 04-14-2021 ABS IMM GRANS 0.0 10*3/uL Normal 0.0-0.2 [facility] Comment on above: Order Comment: No: D o not add to previous draw Performed By: #### 8 5499 #### [facility] [address] [place] [id number], [facility] ABS NEUTROPHILS 6.4 10*3/uL Normal 1.6-7.6 [facility] Comment on above: Order Comment: No: D o not add to previous draw Performed By: #### 8 5499 #### [facility] [address] [place] [address], [place] Basophils (Bld) [#/Vol] 0.0 10*3/uL Normal 0.0-0.2 [facility] Comment on above: Order Comment: No: D o not add to previous draw Performed By: #### 8 5499 #### [facility] [address] [place] [address], [place] Basophils/100 WBC (Bld) 0.3 % Normal 0.0-1.0 [facility] Comment on above: Order Comment: No: D o not add to previous draw Performed By: #### 8 5499 #### [facility] [address] [place] [address], [place] Eosinophils (Bld) [#/Vol] 0.4 10*3/uL Normal 0.0-0.5 [facility] Comment on above: Order Comment: No: D o not add to previous draw Performed By: #### 8 5499 #### [facility] [address] [place] [address], [place] Eosinophils/100 WBC (Bld) 4.0 % Normal 0.0-6.0 [facility] Comment on above: Order Comment: No: D o not add to previous draw Performed By: #### 8 5499 #### [facility] [address] [place] [address], [place] Erythrocyte distribution width (RBC) [Ratio] 16.6 % High 11.5-15.0 [facility] Comment on above: Order Comment: No: D o not add to previous draw Performed By: #### 8 5499 #### [facility] [address] [place] [address], [place] Hematocrit (Bld) [Volume fraction] 35.5 % Low 39.0-50.0 [facility] Comment on above: Order Comment: No: D o not add to previous draw Performed By: #### 8 5499 #### [facility] [address] [place] [address], [facility] Hemoglobin (Bld) [Mass/Vol] 10.9 g/dL Low 13.0-17.0 [facility] Comment on above: Order Comment: No: D o not add to previous draw Performed By: #### 8 5499 #### [facility] [address] [place] [address], [facility] IMMATURE GRANS 0.3 % Normal 0.0-1.0 [facility] Comment on above: Order Comment: No: D o not add to previous draw Performed By: #### 8 5499 #### [facility] [address] [facility] [place] [address], [facility] Lymphocytes (Bld) [#/Vol] 1.6 10*3/uL Normal 1.2-4.0 [facility] Comment on above: Order Comment: No: D o not add to previous draw Performed By: #### 8 5499 #### [facility] [address] [facility] [place] [address], [facility] Lymphocytes/100 WBC (Bld) 17.3 % Low 20.0-45.0 [facility] Comment on above: Order Comment: No: D o not add to previous draw Performed By: #### 8 5499 #### [facility] [address] [facility] [place] [address], [facility] MCH (RBC) [Entitic mass] 27.0 pg Normal 27.0-33.0 [facility] Comment on above: Order Comment: No: D o not add to previous draw Performed By: #### 8 5499 #### [facility] [address] [place] [id number], [facility] MCHC (RBC) [Mass/Vol] 30.7 g/dL Low 32.0-35.0 [facility] Comment on above: Order Comment: No: D o not add to previous draw Performed By: #### 8 5499 #### [facility] [address] [facility] [place] [address], [facility] MCV (RBC) [Entitic vol] 88.1 fL Normal 82.0-98.0 [facility] Comment on above: Order Comment: No: D o not add to previous draw Performed By: #### 8 5499 #### [facility] [address] [facility]. [place] [id number], [facility] Monocytes (Bld) [#/Vol] 0.7 10*3/uL Normal 0.1-1.0 [facility] Comment on above: Order Comment: No: D o not add to previous draw Performed By: #### 8 5499 #### [facility] [address] [facility] [place] [address], [facility] MONOS 7.6 % Normal 5.0-12.0 [facility] Comment on above: Order Comment: No: D o not add to previous draw Performed By: #### 8 5499 #### [facility] [address] [facility] [place] [address], [facility] Neutrophils/100 WBC (Bld) 70.5 % Normal 40.0-72.0 [facility] Comment on above: Order Comment: No: D o not add to previous draw Performed By: #### 8 5499 #### [facility] [address] [facility] [place] [address], [facility] Nucleated RBC/100 WBC (Bld) [Ratio] 0 % Normal 0-0 [facility] [facility] Comment on above: Order Comment: No: D o not add to previous draw Performed By: #### 8 5499 #### [facility] [address] [facility] [place] [address], [facility] PLAT CNT 157 10*3/uL Normal 150-400 [facility] Comment on above: Order Comment: No: D o not add to previous draw Performed By: #### 8 5499 #### [facility] [address] [place] [address], [facility] RBC (Bld) [#/Vol] 4.03 10*6/uL Low 4.20-5.70 [facility] Comment on above: Order Comment: No: D o not add to previous draw Performed By: #### 8 5499 #### [facility] [address] [place] [address], [facility] WBC (Bld) [#/Vol] 9.10 10*3/uL Normal 4.00-10.60 [facility] Comment on above: Order Comment: No: D o not add to previous draw Performed By: #### 8 5499 #### [facility] [address] [place] [id number], [facility] DIGOXINon 04-14-2021 Digoxin [Mass/Vol] 1.0 ng/mL Normal 0.7-2.0 [facility] Comment on above: Order Comment: Yes: Add to Previous draw if able Performed By: #### 8 5499 #### [facility] [address] [place] [address], [facility] MAGNESIUM BLOODon 04-14-2021 Magnesium [Mass/Vol] 2.2 mg/dL Normal 1.9-2.7 [facility] Comment on above: Order Comment: No: D o not add to previous draw Performed By: #### 8 5499 #### [facility] [address] [place] [address], [facility] POC GLUCOSE LABon 04-14-2021 Glucose [Mass/Vol] 194 mg/dL High 70-100 [facility] Comment on above: Performed By: #### 8 5499 #### [facility] [address] [place] [address], [place] Glucose [Mass/Vol] 188 mg/dL High 70-100 [facility] Comment on above: Performed By: #### 9 9909, 33228, 30911, 90810 #### [facility] [address] [place] [address], [facility] Glucose [Mass/Vol] 130 mg/dL High 70-100 [facility] Comment on above: Performed By: #### 9 9909, 40697, 24176, 35670 #### [facility] [address] [place] [address], [facility] PROTHROMBIN TIMEon 1 INR Coag (PPP) [Relative time] 1.92 {INR} High 0.91-1.16 [facility] Comment on above: Order Comment: No: D o not add to previous draw Result Comment: ACCC P RECOMMENDED INR FOR WARFARIN THERAPY ------- CONDITION INR PROPHYLAXIS OF VENOUS THROMBOSIS 2-3 (HIGH-RISK SURGERY) TREATMENT OF VENOUS THROMBOSIS 2-3 TREATMENT OF PULMONARY EMBOLISM 2-3 PREVENTION OF SYSTEMIC EMBOLISM: 2-3 ACUTE MYOCARDIAL INFARCTION TISSUE HEART VALVES VALVULAR HEART DISEASE ATRIAL FIBRILLATION RECURRENT SYSTEMIC EMBOLISM MECHANICAL HEART VALVE 2.5-3.5 FROM: ORAL ANTICOAGULANTS. MECHANISM OF ACTION, CLINICAL EFFECTIVENESS, AND OPTIMAL THERAPEUTIC RANGE. CHEST 1995;108:231S-246S. Performed By: #### 9 9909, 78682, 75916, 09020 #### [facility] [address] [facility] [place] [address], [facility] PT Coag (PPP) [Time] 22.1 s High 12.3-14.8 [facility] Comment on above: Order Comment: No: D o not add to previous draw Result Comment: ALL RESULTS MUST BE INTERPRETED WITH RESPECT TO BLOOD DRAWING ARTIFACT OR DILUTION ERROR OF ANTICOAGULANT AT THE TIME OF SAMPLING. Performed By: #### 9 9909, 06163, 48737, 37519 #### [facility] [address] [facility]. [address] INR Coag (PPP) [Relative time] 1.83 {INR} High 0.91-1.16 [facility] Comment on above: Order Comment: No: D o not add to previous draw Result Comment: ACCC P RECOMMENDED INR FOR WARFARIN THERAPY ------- CONDITION INR PROPHYLAXIS OF VENOUS THROMBOSIS 2-3 (HIGH-RISK SURGERY) TREATMENT OF VENOUS THROMBOSIS 2-3 TREATMENT OF PULMONARY EMBOLISM 2-3 PREVENTION OF SYSTEMIC EMBOLISM: 2-3 ACUTE MYOCARDIAL INFARCTION TISSUE HEART VALVES VALVULAR HEART DISEASE ATRIAL FIBRILLATION RECURRENT SYSTEMIC EMBOLISM MECHANICAL HEART VALVE 2.5-3.5 FROM: ORAL ANTICOAGULANTS. MECHANISM OF ACTION, CLINICAL EFFECTIVENESS, AND OPTIMAL THERAPEUTIC RANGE. CHEST 1995;108:231S-246S. Performed By: #### 3 5200 #### [facility] [address] [facility]. [address] PT Coag (PPP) [Time] 21.2 s High 12.3-14.8 [facility] Comment on above: Order Comment: No: D o not add to previous draw Result Comment: ALL RESULTS MUST BE INTERPRETED WITH RESPECT TO BLOOD DRAWING ARTIFACT OR DILUTION ERROR OF ANTICOAGULANT AT THE TIME OF SAMPLING. Performed By: #### 3 5200 #### [facility] [address] [facility] BASIC METABOLIC PANELon 05-2 Calcium [Mass/Vol] 8.5 mg/dL Low 8.6-10.3 [facility] Comment on above: Order Comment: No: D o not add to previous draw Performed By: #### 9 9909, 32927, 97638, 90572 #### [facility] [address] [place] [address], [place] Chloride [Moles/Vol] 98 mmol/L Normal 98-107 [facility] Comment on above: Order Comment: No: D o not add to previous draw Performed By: #### 9 9909, 69671, 96324, 96432 #### [facility] [address] [place] [address], [place] CO2 [Moles/Vol] 32 mmol/L High 21-31 [facility] Comment on above: Order Comment: No: D o not add to previous draw Performed By: #### 9 9909, 17798, 95001, 71951 #### [facility] [address] [place] [address], [place] Creatinine [Mass/Vol] 1.77 mg/dL High 0.70-1.30 [facility] Comment on above: Order Comment: No: D o not add to previous draw Performed By: #### 9 9909, 47578, 79869, 65527 #### [facility] [address] [place] [address], [place] eGFR- 47 ml/min/1.73sq m Abnormal >60 [facility] Comment on above: Order Comment: No: D o not add to previous draw Performed By: #### 9 9909, 57445, 92216, 65983 #### [facility] [address] [place] [address], [place] eGFR- non- 39 ml/min/1.73sq m Abnormal >60 [facility] Comment on above: Order Comment: No: D o not add to previous draw Performed By: #### 9 9909, 95554, 59558, 49078 #### [facility] [address] [place] [id number], [facility] Glucose [Mass/Vol] 129 mg/dL High 70-100 [facility] Comment on above: Order Comment: No: D o not add to previous draw Performed By: #### 9 9909, 10159, 80072, 38585 #### [facility] [address] [place] [address], [facility] Potassium [Moles/Vol] 3.8 mmol/L Normal 3.5-5.1 [facility] Comment on above: Order Comment: No: D o not add to previous draw Performed By: #### 9 9909, 82007, 45743, 76220 #### [facility] [address] [place] [address], [facility] Sodium [Moles/Vol] 138 mmol/L Normal 136-145 [facility] Comment on above: Order Comment: No: D o not add to previous draw Performed By: #### 9 9909, 93743, 49071, 37372 #### [facility] [address] [place] [address], [facility] Urea nitrogen [Mass/Vol] 39 mg/dL High 7-25 [facility] Comment on above: Order Comment: No: D o not add to previous draw Performed By: #### 9 9909, 59939, 65564, 87290 #### [facility] [address] [place] [address], [facility] CBC COMPLETE BLOOD COUNTon 0 04-13-2021 Erythrocyte distribution width (RBC) [Ratio] 16.8 % High 11.5-15.0 [facility] Comment on above: Order Comment: No: D o not add to previous draw Performed By: #### 8 1529 #### [facility] [address] [place] [address], [facility] Hematocrit (Bld) [Volume fraction] 33.7 % Low 39.0-50.0 [facility] Comment on above: Order Comment: No: D o not add to previous draw Performed By: #### 8 2379 #### [facility] [address] [place] [address], [facility] Hemoglobin (Bld) [Mass/Vol] 10.2 g/dL Low 13.0-17.0 [facility] Comment on above: Order Comment: No: D o not add to previous draw Performed By: #### 8 5499 #### [facility] [address] [facility] [place] [address], [facility] MCH (RBC) [Entitic mass] 27.1 pg Normal 27.0-33.0 [facility] Comment on above: Order Comment: No: D o not add to previous draw Performed By: #### 8 5499 #### [facility] [address] [facility]. [address] MCHC (RBC) [Mass/Vol] 30.3 g/dL Low 32.0-35.0 [facility] Comment on above: Order Comment: No: D o not add to previous draw Performed By: #### 8 5499 #### [facility] [address] [facility] [place] [address], [facility] MCV (RBC) [Entitic vol] 89.6 fL Normal 82.0-98.0 [facility] Comment on above: Order Comment: No: D o not add to previous draw Performed By: #### 8 5499 #### [facility] [address] [facility] [place] [address], [facility] Nucleated RBC/100 WBC (Bld) [Ratio] 0 % Normal 0-0 [facility] Comment on above: Order Comment: No: D o not add to previous draw Performed By: #### 8 5499 #### [facility] [address] [facility] [place] [address], [facility] PLAT CNT 131 10*3/uL Low 150-400 [facility] Comment on above: Order Comment: No: D o not add to previous draw Performed By: #### 8 5499 #### [facility] [address] [place] [address], [place] RBC (Bld) [#/Vol] 3.76 10*6/uL Low 4.20-5.70 [facility] Comment on above: Order Comment: No: D o not add to previous draw Performed By: #### 8 5499 #### [facility] [address] [place] [address], [place] WBC (Bld) [#/Vol] 11.41 10*3/uL High 4.00-10.60 [facility] Comment on above: Order Comment: No: D o not add to previous draw Performed By: #### 8 5499 #### [facility] [address] [place] [address], [place] MAGNESIUM BLOODon 04-13-2021 Magnesium [Mass/Vol] 2.3 mg/dL Normal 1.9-2.7 [facility] Comment on above: Order Comment: No: D o not add to previous draw Performed By: #### 9 9909, 02598, 24045, 79042 #### [facility] [address] [place] [address], [place] POC GLUCOSE LABon 04-13-2021 Glucose [Mass/Vol] 210 mg/dL High 70-100 [facility] Comment on above: Performed By: #### 8 5499 #### [facility] [address] [place] [address], [place] Glucose [Mass/Vol] 90 mg/dL Normal 70-100 [facility] Comment on above: Performed By: #### 9 9909, 29857, 44381, 85904 #### [facility] [address] [place] [address], [place] Glucose [Mass/Vol] 104 mg/dL High 70-100 [facility] Comment on above: Performed By: #### 8 5499 #### [facility] [address] [place] [address], [place] Glucose [Mass/Vol] 77 mg/dL Normal 70-100 [facility] Comment on above: Performed By: #### 9 9909, 22798, 08523, 30438 #### [facility] [address] [place] [address], [facility] Glucose [Mass/Vol] 113 mg/dL High 70-100 [facility] Comment on above: Performed By: #### 9 9909, 30624, 52923, 37443 #### [facility] [address] [place] [address], [facility] PROTHROMBIN TIMEon 1 INR Coag (PPP) [Relative time] 2.19 {INR} High 0.91-1.16 [facility] Comment on above: Order Comment: No: D o not add to previous draw Result Comment: ACCC P RECOMMENDED INR FOR WARFARIN THERAPY ------- CONDITION INR PROPHYLAXIS OF VENOUS THROMBOSIS 2-3 (HIGH-RISK SURGERY) TREATMENT OF VENOUS THROMBOSIS 2-3 TREATMENT OF PULMONARY EMBOLISM 2-3 PREVENTION OF SYSTEMIC EMBOLISM: 2-3 ACUTE MYOCARDIAL INFARCTION TISSUE HEART VALVES VALVULAR HEART DISEASE ATRIAL FIBRILLATION RECURRENT SYSTEMIC EMBOLISM MECHANICAL HEART VALVE 2.5-3.5 FROM: ORAL ANTICOAGULANTS. MECHANISM OF ACTION, CLINICAL EFFECTIVENESS, AND OPTIMAL THERAPEUTIC RANGE. CHEST 1995;108:231S-246S. Performed By: #### 3 7639 #### [facility] [address] [place] [address], [facility] PT Coag (PPP) [Time] 24.5 s High 12.3-14.8 [facility] Comment on above: Order Comment: No: D o not add to previous draw Result Comment: ALL RESULTS MUST BE INTERPRETED WITH RESPECT TO BLOOD DRAWING ARTIFACT OR DILUTION ERROR OF ANTICOAGULANT AT THE TIME OF SAMPLING. Performed By: #### 3 5200 #### [address] TROPONIN-Ion 04-13-2021 Troponin I.cardiac [Mass/Vol] 0.05 ng/mL High 0.00-0.04 [facility] Comment on above: Order Comment: No: D o not add to previous draw Result Comment: REFE RENCE RANGES: 0.00 - 0.04 ng/ml NORMAL 0.05 - 0.50 ng/ml INDETERMINATE > 0.50 ng/ml CONSISTENT WITH AN M.I. Performed By: #### 3 5200 #### [address] US ABDOMEN LIMITED FOR ASCIT ESon 04-13-2021 US ABDOMEN LIMITED FOR ASCITES [facility] Department of Radiology [address] [place], [place] [address] == Patient Name: ADWOA PORTER : 1955 Sex: M Age: Race: White Pt. Location: [id number] Patient Status: I Ordered Date: 04/13/2021 3:45:00 AM Completed Date: 04/13/2021 09:04 AM Requesting Provider: VARINDER AVILA Attending Provider: CECILE MAJOR Report Copy To: Signs & Symptoms: Increased abdominal girth History: See Comments Comments: US Guidance Documentation Only Exam: US ABDOMEN LIMITED FOR ASCITES == CLINICAL INFORMATION: Increased abdominal girth. TECHNIQUE: Grayscale abdominal ultrasound to evaluate for ascites. COMPARISON: None. FINDINGS IMPRESSION: * There is a small amount of ascites in the left upper and left lower quadrants. Approved by:Bianca De Dios04/13/2021 10:19 AM. I, Shannon Weathers,have reviewed the images and reports Electronically signed: Shannon Weathers. Transcribed by: [email or web address], User Resident: BIANCA NICOLE Electronically Signed by: SHANNON WEATHERS @ 04/13/2021 04:07 PM I personally read this/these film(s) with this resident Normal [facility] Comment on above: Order Comment: No: D o not add to previous draw *BLOOD CULTUREon 04-12-2021 *BLOOD CULTURE Clinical Report: (D) Specimen: BLOOD CULTURE Collected: 04/12/2021 20:24 Status: Final Last Updated: 04/18/2021 07:10 (1) Right AC 2019 CULT RES (Final) No Growth Day 5 Normal [facility] Comment on above: Order Comment: Right AC 2018 Performed By: #### 8 5499 #### [facility] [address] *BLOOD CULTURE Clinical Report: (D) Specimen: BLOOD CULTURE Collected: 04/12/2021 20:24 Status: Final Last Updated: 04/18/2021 07:10 (1) Left AC 2021 CULT RES (Final) No Growth Day 5 Normal [facility] Comment on above: Order Comment: Left AC 2021 Performed By: #### 8 5499 #### [facility] [address] BNP (B-TYPE NATRIURETIC PEPT JJ)on 04-12-2021 Natriuretic peptide B (Bld) [Mass/Vol] 502 pg/mL High 0-100 [facility] Comment on above: Order Comment: No: D o not add to previous draw Result Comment: Give n the appropriate clinical setting a BNP result of >100 pg/mL indicates congestive heart failure. Performed By: #### 9 9909, 01273, 46334, 57991 #### [facility] [address] [place] [address], [facility] CBC W/DIFFon 04-12-2021 ABS IMM GRANS 0.1 10*3/uL Normal 0.0-0.2 [facility] Comment on above: Performed By: #### 8 5499 #### [facility] [address] [place] [address], [facility] ABS NEUTROPHILS 10.5 10*3/uL High 1.6-7.6 [facility] Comment on above: Performed By: #### 8 5499 #### [facility] [address] [place] [address], [facility] Basophils (Bld) [#/Vol] 0.0 10*3/uL Normal 0.0-0.2 [facility] Comment on above: Performed By: #### 8 5499 #### [facility] [address] [place] [address], [facility] Basophils/100 WBC (Bld) 0.2 % Normal 0.0-1.0 [facility] Comment on above: Performed By: #### 8 5499 #### [facility] [address] [place] [address], [facility] Eosinophils (Bld) [#/Vol] 0.3 10*3/uL Normal 0.0-0.5 [facility] Comment on above: Performed By: #### 8 5499 #### [facility] [address] [place] [address], [facility] Eosinophils/100 WBC (Bld) 2.1 % Normal 0.0-6.0 [facility] Comment on above: Performed By: #### 8 5499 #### [facility] [address] [place] [address], [facility] Erythrocyte distribution width (RBC) [Ratio] 17.1 % High 11.5-15.0 [facility] Comment on above: Performed By: #### 8 5499 #### [facility] [address] [place] [address], [facility] Hematocrit (Bld) [Volume fraction] 34.8 % Low 39.0-50.0 [facility] Comment on above: Performed By: #### 8 5499 #### [facility] [address] [facility] [place] [address], [facility] Hemoglobin (Bld) [Mass/Vol] 10.6 g/dL Low 13.0-17.0 [facility] Comment on above: Performed By: #### 8 5499 #### [facility] [address] [facility] [place] [address], [facility] IMMATURE GRANS 0.4 % Normal 0.0-1.0 [facility] Comment on above: Performed By: #### 8 5499 #### [facility] [address] [facility] [place] [address], [facility] Lymphocytes (Bld) [#/Vol] 1.4 10*3/uL Normal 1.2-4.0 [facility] Comment on above: Performed By: #### 8 5499 #### [facility] [address] [facility] [address], [facility] Lymphocytes/100 WBC (Bld) 10.5 % Low 20.0-45.0 [facility] Comment on above: Performed By: #### 8 5499 #### [facility] [address] [facility] [address], [facility] MCH (RBC) [Entitic mass] 27.3 pg Normal 27.0-33.0 [facility] Comment on above: Performed By: #### 8 5499 #### [facility] [address] [place] [address], [facility] MCHC (RBC) [Mass/Vol] 30.5 g/dL Low 32.0-35.0 [facility] Comment on above: Performed By: #### 8 5499 #### [facility] [address] [facility] [place] [address], [facility] MCV (RBC) [Entitic vol] 89.7 fL Normal 82.0-98.0 [facility] Comment on above: Performed By: #### 8 5499 #### [facility] [address] [facility] [place] [address], [facility] Monocytes (Bld) [#/Vol] 0.8 10*3/uL Normal 0.1-1.0 [facility] Comment on above: Performed By: #### 8 5499 #### [facility] [address] [facility] [place] [address], [facility] MONOS 6.4 % Normal 5.0-12.0 [facility] Comment on above: Performed By: #### 8 5499 #### [facility] [address] [facility]. [address] Neutrophils/100 WBC (Bld) 80.4 % High 40.0-72.0 [facility] Comment on above: Performed By: #### 8 5499 #### [facility] [address] [facility] [place] [address], [facility] Nucleated RBC/100 WBC (Bld) [Ratio] 0 % Normal 0-0 [facility] Comment on above: Performed By: #### 8 5499 #### [facility] [address] [facility] [place] [address], [facility] PLAT CNT 138 10*3/uL Low 150-400 [facility] Comment on above: Performed By: #### 8 5499 #### [facility] [address] [facility] [place] [address], [facility] RBC (Bld) [#/Vol] 3.88 10*6/uL Low 4.20-5.70 [facility] Comment on above: Performed By: #### 8 5499 #### [facility] [address] [place] [address], [facility] WBC (Bld) [#/Vol] 13.05 10*3/uL High 4.00-10.60 [facility] Comment on above: Performed By: #### 8 5499 #### [facility] [address] [place] [address], [facility] LIVER BATTERYon 04-12-2021 Albumin [Mass/Vol] 3.8 g/dL Normal 3.5-5.7 [facility] Comment on above: Order Comment: No: D o not add to previous draw Performed By: #### 9 9909, 99757, 39295, 79633 #### [facility] [address] [place] [address], [facility] ALKALINE PHOSPH 80 IU/L Normal 34-104 [facility] Comment on above: Order Comment: No: D o not add to previous draw Performed By: #### 9 9909, 85449, 02852, 23616 #### [facility] [address] [place] [address], [facility] ALT [Catalytic activity/Vol] 10 U/L Normal 7-52 [facility] Comment on above: Order Comment: No: D o not add to previous draw Performed By: #### 9 9909, 92408, 76292, 20775 #### [facility] [address] [place] [address], [facility] AST [Catalytic activity/Vol] 15 U/L Normal 13-39 [facility] Comment on above: Order Comment: No: D o not add to previous draw Performed By: #### 9 9909, 12773, 31845, 72273 #### [facility] [address] [place] [address], [place] Bilirubin [Mass/Vol] 1.0 mg/dL Normal 0.3-1.0 [facility] Comment on above: Order Comment: No: D o not add to previous draw Performed By: #### 9 9909, 72995, 15389, 89047 #### [facility] [address] [place] [address], [facility] Bilirubin.direct [Mass/Vol] 0.5 mg/dL High 0.0-0.2 [facility] Comment on above: Order Comment: No: D o not add to previous draw Performed By: #### 9 9909, 94090, 09049, 96400 #### [facility] [address] [place] [address], [place] Protein [Mass/Vol] 7.2 g/dL Normal 6.0-8.3 [facility] Comment on above: Order Comment: No: D o not add to previous draw Performed By: #### 9 9909, 59405, 68534, 95729 #### [facility] [address] [place] [address], [facility] MAGNESIUM BLOODon 04-12-2021 Magnesium [Mass/Vol] 2.5 mg/dL Normal 1.9-2.7 [facility] Comment on above: Order Comment: No: D o not add to previous draw Performed By: #### 9 9909, 22682, 31397, 65321 #### [facility] [address] [place] [address], [facility] PHOSPHORUS BLOODon Phosphate [Mass/Vol] 3.7 mg/dL Normal 2.5-5.0 [facility] Comment on above: Order Comment: No: D o not add to previous draw Performed By: #### 9 9909, 51710, 20117, 87875 #### [facility] [address] [place] [address], [place] POC GLUCOSE LABon 04-12-2021 Glucose [Mass/Vol] 190 mg/dL High 70-100 [facility] Comment on above: Performed By: #### 8 5499 #### [facility] [address] [place] [address], [place] Glucose [Mass/Vol] 117 mg/dL High 70-100 [facility] Comment on above: Performed By: #### 8 5499 #### [address] [address], [facility] PORTABLE CHEST 1 VIEWon 03-20 PORTABLE CHEST 1 VIEW [facility] Department of Radiology [address] [place] [address] == Patient Name: ADWOA PORTER : 1955 Sex: M Age: Race: White Pt. Location: [address] [place] [address] Patient Status: I Ordered Date: 04/12/2021 4:55:00 PM Completed Date: 04/12/2021 05:16 PM Requesting Provider: ADRIEL NAPOLES Attending Provider: CECILE MAJOR Report Copy To: Signs & Symptoms: O2 Desaturation History: Comments: evaluate for Pulmonary Edema Exam: PORTABLE CHEST 1 VIEW == PORTABLE CHEST 1 VIEW 04/12/2021 5:16 PM [...] no definite pulmonary edema. Electronically signed: Michaelle Arnold. Transcribed by: [email or web address], User Resident: Electronically Signed by: MICHAELLE AGUIRREGaurav @ 04/12/2021 05:27 PM Normal [facility] Comment on above: Order Comment: evalu ate for Pulmonary Edema PROTHROMBIN TIMEon INR Coag (PPP) [Relative time] 2.58 {INR} High 0.91-1.16 [facility] Comment on above: Order Comment: No: D o not add to previous draw Result Comment: ACCC P RECOMMENDED INR FOR WARFARIN THERAPY ------- CONDITION INR PROPHYLAXIS OF VENOUS THROMBOSIS 2-3 (HIGH-RISK SURGERY) TREATMENT OF VENOUS THROMBOSIS 2-3 TREATMENT OF PULMONARY EMBOLISM 2-3 PREVENTION OF SYSTEMIC EMBOLISM: 2-3 ACUTE MYOCARDIAL INFARCTION TISSUE HEART VALVES VALVULAR HEART DISEASE ATRIAL FIBRILLATION RECURRENT SYSTEMIC EMBOLISM MECHANICAL HEART VALVE 2.5-3.5 FROM: ORAL ANTICOAGULANTS. MECHANISM OF ACTION, CLINICAL EFFECTIVENESS, AND OPTIMAL THERAPEUTIC RANGE. CHEST 1995;108:231S-246S. Performed By: #### [id number] #### [facility] [address] [facility]. [address] PT Coag (PPP) [Time] 27.9 s High 12.3-14.8 [facility] Comment on above: Order Comment: No: D o not add to previous draw Result Comment: ALL RESULTS MUST BE INTERPRETED WITH RESPECT TO BLOOD DRAWING ARTIFACT OR DILUTION ERROR OF ANTICOAGULANT AT THE TIME OF SAMPLING. Performed By: #### [id number] #### [facility] [address] [place] [address], [facility] TROPONIN-Ion 04-12-2021 Troponin I.cardiac [Mass/Vol] 0.05 ng/mL High 0.00-0.04 [facility] Comment on above: Order Comment: No: D o not add to previous draw Result Comment: REFE RENCE RANGES: 0.00 - 0.04 ng/ml NORMAL 0.05 - 0.50 ng/ml INDETERMINATE > 0.50 ng/ml CONSISTENT WITH AN M.I. Performed By: #### [id number] #### [facility] [address] [place] [address], [facility] Provider Letteron 11-16-2020 Provider Letter (Inserted Image. Radha ble to display) November 16, 2020 ADWOA PORTER [address] [place] [phone] ADWOA PORTER 1955 Dear Adwoa, You missed [...] appreciate your understanding. Sincerely, [facility] [address], [place] [address] [facility] Coding Summary.on 04-05-2020 Coding Summary. CODING [...] CphT Date Saved: 04/05/2020 10:26 am Normal [facility] Aerobic cultureon 12-04-2019 Aerobic Culture Staphylococcus aureus [facility] Aerobic Culture Klebsiella oxytoca F [facility] Trans[facility] reaction panel ( ABO, Rh)on 12-04-2019 Microscopic observation Gram stain Nom (Unsp spec) [facility] Vital Signs Date Time Vital Sign Value Performing Clinician Facility 02-21-2024 15:10-0400 Body temperature 97.7 [degF] DO Vinnie Stewart Work Phone: [facility] 02-21-2024 15:10-0400 Diastolic blood pressure 72 mm[Hg] DO Vinnie Stewart Work Phone: [facility] 02-21-2024 15:10-0400 Heart rate 89 /min DO Vinnie Stewart Work Phone: [facility] 02-21-2024 15:10-0400 Respiratory rate 20 /min DO Vinnie Stewart Work Phone: [facility] 02-21-2024 15:10-0400 SaO2% (BldA) [Mass fraction] 99 % DO Vinnie Stewart Work Phone: [facility] 02-21-2024 15:10-0400 Systolic blood pressure 108 mm[Hg] DO Vinnie Lucasley Work Phone: [facility] 02-21-2024 11:20-0400 Inhaled oxygen flow rate 2 L/min DO Vinnie Stewart Work Phone: [facility] 02-20-2024 14:59-0400 Body height 175.26 cm DO Vinnie Stewart Work Phone: [facility] 02-20-2024 04:09-0400 Body weight 106.3 kg DO Vinnie Stewart Work Phone: [facility] 02-19-2024 14:00-0400 Diastolic blood pressure 58 mm[Hg] DO Vinnie Stewart Work Phone: [facility] 02-19-2024 14:00-0400 Heart rate 85 /min DO Vinnie Stewart Work Phone: [facility] 02-19-2024 14:00-0400 Inhaled oxygen flow rate 2 L/min DO Vinnie Lucasley Work Phone: [facility] 02-19-2024 14:00-0400 Respiratory rate 20 /min DO Vinnie Lucasley Work Phone: [facility] 02-19-2024 14:00-0400 SaO2% (BldA) [Mass fraction] 100 % DO Vinnie Lucasley Work Phone: [facility] 02-19-2024 14:00-0400 Systolic blood pressure 102 mm[Hg] DO Vinnie Stewart Work Phone: [facility] 02-19-2024 10:46-0400 Body height 175.26 cm DO Vinnie Lucasley Work Phone: [facility] 02-19-2024 10:46-0400 Body temperature 97.3 [degF] DO Vinnie Stewart Work Phone: [facility] 02-19-2024 10:46-0400 Body weight 101.8 kg DO Vinnie Lucasley Work Phone: [facility] 02-05-2024 16:00-0400 Body temperature 97.2 [degF] DO Vinnie Stewart Work Phone: [facility] 02-05-2024 16:00-0400 Diastolic blood pressure 80 mm[Hg] DO Vinnie Stewart Work Phone: [facility] 02-05-2024 16:00-0400 Heart rate 85 /min DO Vinnie Stewart Work Phone: [facility] 02-05-2024 16:00-0400 Respiratory rate 18 /min DO Vinnie Stewart Work Phone: [facility] 02-05-2024 16:00-0400 SaO2% (BldA) [Mass fraction] 100 % DO Vinnie Stewart Work Phone: [facility] 02-05-2024 16:00-0400 Systolic blood pressure 138 mm[Hg] DO Vinnie Stewart Work Phone: [facility] 02-05-2024 08:45-0400 Inhaled oxygen flow rate 2 L/min DO Vinnie Stewart Work Phone: [facility] 02-05-2024 06:00-0400 Body weight 95.4 kg DO Vinnie Stewart Work Phone: [facility] 02-04-2024 16:40-0400 Body height 175.26 cm DO Vinnie Stewart Work Phone: [facility] 02-01-2024 11:52-0400 Inhaled oxygen concentration 10 % DO Vinnie Stewart Work Phone: [facility] 11-22-2023 15:15-0500 Body height 170.18 cm Vinnie Stewart Other [facility] 11-22-2023 15:15-0500 Body mass index (BMI) [Ratio] 29.6 kg/m2 Vinnie Stewart Other [employer] Other 11-22-2023 15:15-0500 Body temperature 97.9 [degF] Vinnie Stewart Other [employer] Other 11-22-2023 15:15-0500 Body weight 85.73 kg Vinnie Stewart Other [employer] Other 11-22-2023 15:15-0500 Body weight 85.72 kg DO Vinnie Stewart Work Phone: [facility] 11-22-2023 15:15-0500 Diastolic blood pressure 60 mm[Hg] Vinnie Stewart Other [facility] 11-22-2023 15:15-0500 Respiratory rate 18 /min Vinnie Stewart Other [employer] Other 11-22-2023 15:15-0500 SaO2% (BldA) [Mass fraction] 98 % Vinnie Stewart Other [facility] [employer] Other 11-22-2023 15:15-0500 Systolic blood pressure 122 mm[Hg] Vinnie Stewart Other [facility] 11-15-2023 13:40-0500 Body height 170.18 cm Simba Jac Other [facility] 11-15-2023 13:40-0500 Body mass index (BMI) [Ratio] 28.94 kg/m2 Simba Jac Other [employer] Other 11-15-2023 13:40-0500 Body temperature 96.4 [degF] Simba Jac Other [facility] Other 11-15-2023 13:40-0500 Body weight 83.83 kg Simba Jac Other [facility] Other 11-15-2023 13:40-0500 Body weight 83.82 kg DO Vinnie Stewart Work Phone: [facility] 11-15-2023 13:40-0500 Diastolic blood pressure 62 mm[Hg] Simba Jac Other [facility] 11-15-2023 13:40-0500 Respiratory rate 18 /min Simba Jac Other [employer] Other 11-15-2023 13:40-0500 SaO2% (BldA) [Mass fraction] 92 % Simba Jac Other [employer] Other 11-15-2023 13:40-0500 Systolic blood pressure 110 mm[Hg] Simba Jac Other [facility] 11-13-2023 13:30-0500 Body height 170.18 cm Brittnee Scally Other [facility] 11-13-2023 13:30-0500 Body mass index (BMI) [Ratio] 28.94 kg/m2 Brittnee Scally Other [facility] [employer] Other 11-13-2023 13:30-0500 Body weight 83.83 kg Brittnee Scally Other [facility] [employer] Other 11-13-2023 13:30-0500 Body weight 83.82 kg DO Vinnie Stewart Work Phone: [facility] 11-13-2023 13:30-0500 Diastolic blood pressure 63 mm[Hg] Brittnee Scally Other [facility] 11-13-2023 13:30-0500 Respiratory rate 18 /min Brittnee Scally Other [employer] Other 11-13-2023 13:30-0500 SaO2% (BldA) [Mass fraction] 95 % Brittnee Scally Other [employer] Other 11-13-2023 13:30-0500 Systolic blood pressure 107 mm[Hg] Brittnee Scally Other [facility] 10-08-2023 10:00-0500 Body height 170.18 cm Brittnee Scally Other [facility] 10-08-2023 10:00-0500 Body mass index (BMI) [Ratio] 30.57 kg/m2 Brittnee Scally Other [employer] Other 10-08-2023 10:00-0500 Body weight 88.54 kg Brittnee Scally Other [facility] 09-18-2023 15:00-0400 Body height 170.18 cm Brittnee Scally Other [employer] Other 09-18-2023 15:00-0400 Diastolic blood pressure 72 mm[Hg] Brittnee Scally Other [employer] Other 09-18-2023 15:00-0400 Respiratory rate 18 /min Brittnee Scally Other [facility] Other 09-18-2023 15:00-0400 SaO2% (BldA) [Mass fraction] 96 % Brittnee Scally Other [facility] Other 09-18-2023 15:00-0400 Systolic blood pressure 115 mm[Hg] Brittnee Scally Other [facility] Other 06-29-2023 10:30-0400 Body height 170.18 cm Vinnie Stewart Other [employer] Other 06-29-2023 10:30-0400 Body mass index (BMI) [Ratio] 31.99 kg/m2 Vinnie Stewart Other [employer] Other 06-29-2023 10:30-0400 Body weight 92.67 kg Vinnie Stewart Other [employer] Other 06-29-2023 10:30-0400 Diastolic blood pressure 72 mm[Hg] Vinnie Stewart Other [employer] Other 06-29-2023 10:30-0400 Respiratory rate 18 /min iVnnie Stewart Other [employer] Other 06-29-2023 10:30-0400 SaO2% (BldA) [Mass fraction] 95 % Vinnie Stewart Other [employer] Other 06-29-2023 10:30-0400 Systolic blood pressure 124 mm[Hg] Vinnie Stewart Other [employer] Other 06-29-2023 08:15-0400 Body height 170.18 cm Brittnee Scally Other [employer] Other 06-29-2023 08:15-0400 Diastolic blood pressure 62 mm[Hg] Brittnee Scally Other [employer] Other 06-29-2023 08:15-0400 Respiratory rate 18 /min Brittnee Scally Other [employer] Other 06-29-2023 08:15-0400 SaO2% (BldA) [Mass fraction] 94 % Brittnee Scally Other [employer] Other 06-29-2023 08:15-0400 Systolic blood pressure 104 mm[Hg] Brittnee Scally Other [employer] Other 06-18-2023 11:30-0400 Body height 170.18 cm Vinnie Stewart Other [employer] Other 06-18-2023 11:30-0400 Body mass index (BMI) [Ratio] 32.89 kg/m2 Vinnie Stewart Other [facility] Other 06-18-2023 11:30-0400 Body temperature 97.5 [degF] Vinnie Stewart Other [facility] Other 06-18-2023 11:30-0400 Body weight 95.26 kg Vinnie Stewart Other [facility] Other 06-18-2023 11:30-0400 Diastolic blood pressure 72 mm[Hg] Vinnie Stewart Other [employer] Other 06-18-2023 11:30-0400 Respiratory rate 18 /min Vinnie Stewart Other [employer] Other 06-18-2023 11:30-0400 SaO2% (BldA) [Mass fraction] 94 % Vinnie Stewart Other [employer] Other 06-18-2023 11:30-0400 Systolic blood pressure 126 mm[Hg] Vinnie Stewart Other [employer] Other 04-19-2023 11:20-0400 Body height 170.18 cm Simba Jac Other [employer] Other 04-19-2023 11:20-0400 Body mass index (BMI) [Ratio] 32.76 kg/m2 Simba Jac Other [employer] Other 04-19-2023 11:20-0400 Body temperature 97.6 [degF] Simba Jac Other [facility] Other 04-19-2023 11:20-0400 Body weight 94.89 kg Simba Jac Other [employer] Other 04-19-2023 11:20-0400 Diastolic blood pressure 60 mm[Hg] Simba Jac Other [employer] Other 04-19-2023 11:20-0400 Respiratory rate 18 /min Simba Jac Other [employer] Other 04-19-2023 11:20-0400 SaO2% (BldA) [Mass fraction] 98 % Simba Jac Other [employer] Other 04-19-2023 11:20-0400 Systolic blood pressure 120 mm[Hg] Sibma Jac Other [employer] Other 03-21-2023 14:00-0400 Body height 170.18 cm Vinnie Stewart Other [employer] Other 03-21-2023 14:00-0400 Body mass index (BMI) [Ratio] 32.42 kg/m2 Vinnie Stewart Other [facility] Other 03-21-2023 14:00-0400 Body weight 93.9 kg Vinnie Stewart Other [employer] Other 03-21-2023 14:00-0400 Diastolic blood pressure 86 mm[Hg] Vinnie Stewart Other [facility] Other 03-21-2023 14:00-0400 Respiratory rate 18 /min Vinnie Stewart Other [employer] Other 03-21-2023 14:00-0400 SaO2% (BldA) [Mass fraction] 94 % Vinnie Stewart Other [facility] Other 03-21-2023 14:00-0400 Systolic blood pressure 132 mm[Hg] Vinnie Stewart Other [employer] Other 02-21-2023 15:45-0400 Body height 170.18 cm Vinnie Stewart Other [employer] Other 02-21-2023 15:45-0400 Body mass index (BMI) [Ratio] 32.57 kg/m2 Vinnie Stewart Other [employer] Other 02-21-2023 15:45-0400 Body weight 94.35 kg Vinnie Stewart Other [facility] Other 02-21-2023 15:45-0400 Diastolic blood pressure 76 mm[Hg] Vinnie Stewart Other [facility] Other 02-21-2023 15:45-0400 Respiratory rate 18 /min Vinnie Stewart Other [employer] Other 02-21-2023 15:45-0400 SaO2% (BldA) [Mass fraction] 97 % Vinnie Stewart Other [employer] Other 02-21-2023 15:45-0400 Systolic blood pressure 134 mm[Hg] Vinnie Stewart Other [employer] Other 02-14-2023 15:48-0400 Body temperature 97.5 [degF] DO Vinnie Stewart Work Phone: [facility] 02-14-2023 15:48-0400 Diastolic blood pressure 80 mm[Hg] DO Vinnie Stewart Work Phone: [facility] 02-14-2023 15:48-0400 Heart rate 86 /min DO Vinnie Stewart Work Phone: [facility] 02-14-2023 15:48-0400 Respiratory rate 16 /min DO Vinnie Stewart Work Phone: [facility] 02-14-2023 15:48-0400 SaO2% (BldA) [Mass fraction] 98 % DO Vinnie Stewart Work Phone: [facility] 02-14-2023 15:48-0400 Systolic blood pressure 137 mm[Hg] DO Vinnie Stewart Work Phone: [facility] 02-14-2023 14:01-0400 Body height 175.26 cm DO Vinnie Lucasley Work Phone: [facility] 02-14-2023 06:00-0400 Body weight 97 kg DO Vinnie Lucasley Work Phone: [facility] 02-13-2023 20:36-0400 Diastolic blood pressure 79 mm[Hg] DO Vinnie Stewart Work Phone: [facility] 02-13-2023 20:36-0400 Heart rate 86 /min DO Vinnie Stewart Work Phone: [facility] 02-13-2023 20:36-0400 Respiratory rate 16 /min DO Vinnie Stewart Work Phone: [facility] 02-13-2023 20:36-0400 SaO2% (BldA) [Mass fraction] 94 % DO Vinnie Stewart Work Phone: [facility] 02-13-2023 20:36-0400 Systolic blood pressure 146 mm[Hg] DO Vinnie Stewart Work Phone: [facility] 02-13-2023 15:38-0400 Body height 175.26 cm DO Vinnie Stewart Work Phone: [facility] 02-13-2023 15:38-0400 Body temperature 97.8 [degF] DO Vinnie Stewart Work Phone: [facility] 02-13-2023 15:38-0400 Body weight 96.16 kg DO Vinnie Stewart Work Phone: [facility] 02-09-2023 12:45-0400 Body height 170.18 cm Vinnie Stewart Other [employer] Other 02-09-2023 12:45-0400 Body mass index (BMI) [Ratio] 33.2 kg/m2 Vinnie Stewart Other [employer] Other 02-09-2023 12:45-0400 Body weight 96.16 kg Vinnie Stewart Other [employer] Other 02-09-2023 12:45-0400 Diastolic blood pressure 82 mm[Hg] Vinnie Stewart Other [facility] Other 02-09-2023 12:45-0400 Respiratory rate 18 /min Vinnie Stewart Other [facility] Other 02-09-2023 12:45-0400 SaO2% (BldA) [Mass fraction] 94 % Vinnie Stewart Other [facility] Other 02-09-2023 12:45-0400 Systolic blood pressure 128 mm[Hg] Vinnie Stewart Other [facility] Other 01-17-2023 15:30-0500 Body height 170.18 cm Vinnie Stewart Other [facility] Other 01-17-2023 15:30-0500 Body mass index (BMI) [Ratio] 36.02 kg/m2 Vinnie Stewart Other [facility] Other 01-17-2023 15:30-0500 Body weight 104.33 kg Vinnie Stewart Other [facility] Other 01-17-2023 15:30-0500 Diastolic blood pressure 82 mm[Hg] Vinnie Stewart Other [facility] Other 01-17-2023 15:30-0500 Respiratory rate 18 /min Vinnie Stewart Other [facility] Other 01-17-2023 15:30-0500 SaO2% (BldA) [Mass fraction] 94 % Vinnie Stewart Other [employer] Other 01-17-2023 15:30-0500 Systolic blood pressure 134 mm[Hg] Vinnie Stewart Other [facility] Other 12-04-2022 13:06-0500 Body height 175.26 cm DO Vinnie Stewart Work Phone: [facility] 12-04-2022 13:06-0500 Body weight 100.8 kg DO Vinnie Stewart Work Phone: [facility] 12-04-2022 13:06-0500 Diastolic blood pressure 84 mm[Hg] DO Vinnie Stewart Work Phone: [facility] 12-04-2022 13:06-0500 Heart rate 86 /min DO Vinnie Stewart Work Phone: [facility] 12-04-2022 13:06-0500 Respiratory rate 20 /min DO Vinnie Stewart Work Phone: [facility] 12-04-2022 13:06-0500 SaO2% (BldA) [Mass fraction] 96 % DO Vinnie Stewart Work Phone: [facility] 12-04-2022 13:06-0500 Systolic blood pressure 129 mm[Hg] DO Vinnie Stewart Work Phone: [facility] 11-07-2022 14:45-0500 Body height 170.18 cm Brittnee Scally Other [employer] Other 11-07-2022 14:45-0500 Body mass index (BMI) [Ratio] 39.7 kg/m2 Brittnee Scally Other [facility] Other 11-07-2022 14:45-0500 Body weight 114.99 kg Brittnee Scally Other [facility] Other 11-07-2022 14:45-0500 Diastolic blood pressure 68 mm[Hg] Brittnee Scally Other [facility] Other 11-07-2022 14:45-0500 Respiratory rate 20 /min Brittnee Scally Other [facility] Other 11-07-2022 14:45-0500 SaO2% (BldA) [Mass fraction] Brittnee Scally Other [facility] Other 11-07-2022 14:45-0500 Systolic blood pressure 108 mm[Hg] Brittnee Scally Other [facility] Other 09-28-2022 13:00-0500 Diastolic blood pressure 67 mm[Hg] Gisselle Noble Other [facility] Other 09-28-2022 13:00-0500 Respiratory rate 18 /min Gisselle Noble Other [facility] Other 09-28-2022 13:00-0500 SaO2% (BldA) [Mass fraction] 92 % Gisselle Dickey Other [facility] Other 09-28-2022 13:00-0500 Systolic blood pressure 123 mm[Hg] Gisselle Noble Other [facility] Other 09-28-2022 12:40-0500 Body height 170.18 cm Simba Jac Other [facility] Other 09-28-2022 12:40-0500 Body mass index (BMI) [Ratio] 37.93 kg/m2 Simba Jac Other [facility] Other 09-28-2022 12:40-0500 Body temperature 96.2 [degF] Simba Jac Other [facility] Other 09-28-2022 12:40-0500 Body weight 109.86 kg Simba Jac Other [facility] Other 09-28-2022 12:40-0500 Diastolic blood pressure 81 mm[Hg] Simba Jac Other [facility] Other 09-28-2022 12:40-0500 Respiratory rate 20 /min Simba Jac Other [facility] [employer] Other 09-28-2022 12:40-0500 SaO2% (BldA) [Mass fraction] 90 % Simba Jac Other [facility] Other 09-28-2022 12:40-0500 Systolic blood pressure 139 mm[Hg] Simba Jac Other [facility] Other 09-13-2022 14:00-0400 Body height 170.18 cm Vinnie Stewart Other [employer] Other 09-13-2022 14:00-0400 Body mass index (BMI) [Ratio] 35.71 kg/m2 Vinnie Stewart Other [facility] Other 09-13-2022 14:00-0400 Body weight 103.42 kg Vinnie Stewart Other [facility] Other 09-13-2022 14:00-0400 Diastolic blood pressure 81 mm[Hg] Vinnie Stewart Other [facility] Other 09-13-2022 14:00-0400 Respiratory rate 16 /min Vinnie Stewart Other [facility] Other 09-13-2022 14:00-0400 SaO2% (BldA) [Mass fraction] 97 % Vinnie Stewart Other [facility] Other 09-13-2022 14:00-0400 Systolic blood pressure 119 mm[Hg] Vinnie Stewart Other [employer] Other 07-31-2022 15:30-0400 Body height 170.18 cm Brittnee Spain Other [facility] Other 07-31-2022 15:30-0400 Body mass index (BMI) [Ratio] 35.55 kg/m2 Brittnee Scally Other [facility] Other 07-31-2022 15:30-0400 Body weight 102.97 kg Brittnee Scally Other [facility] Other 07-31-2022 15:30-0400 Diastolic blood pressure 78 mm[Hg] Brittnee Scally Other [employer] Other 07-31-2022 15:30-0400 Respiratory rate 20 /min Brittnee Scally Other [facility] Other 07-31-2022 15:30-0400 SaO2% (BldA) [Mass fraction] 95 % Brittnee Scally Other [facility] Other 07-31-2022 15:30-0400 Systolic blood pressure 125 mm[Hg] Brittnee Scally Other [facility] Other 06-20-2022 12:15-0400 Body height 170.18 cm Vinnie Stewart Other [facility] Other 06-20-2022 12:15-0400 Body mass index (BMI) [Ratio] 35.55 kg/m2 Vinnie Stewart Other [facility] Other 06-20-2022 12:15-0400 Body weight 102.97 kg Vinnie Stewart Other [facility] Other 06-20-2022 12:15-0400 Diastolic blood pressure 47 mm[Hg] Vinnie Stewart Other [facility] Other 06-20-2022 12:15-0400 Respiratory rate 18 /min Vinnie Stewart Other [facility] Other 06-20-2022 12:15-0400 SaO2% (BldA) [Mass fraction] 94 % Vinnie Stewart Other [facility] Other 06-20-2022 12:15-0400 Systolic blood pressure 106 mm[Hg] Vinnie Stewart Other [employer] Other 06-06-2022 11:36-0400 Body temperature 98 [degF] DO Vinnie Stewart Work Phone: [facility] 03-02-2022 15:30-0400 Body height 170.18 cm Vinnie Stewart Other [employer] Other 03-02-2022 15:30-0400 Body mass index (BMI) [Ratio] 35.39 kg/m2 Vinnie Stewart Other [employer] Other 03-02-2022 15:30-0400 Body temperature 97.5 [degF] Vinnie Stewart Other [employer] Other 03-02-2022 15:30-0400 Body weight 102.51 kg Vinnie Stewart Other [employer] Other 03-02-2022 15:30-0400 Diastolic blood pressure 74 mm[Hg] Vinnie Stewart Other [employer] Other 03-02-2022 15:30-0400 Respiratory rate 20 /min Vinnie Stewart Other [employer] Other 03-02-2022 15:30-0400 SaO2% (BldA) [Mass fraction] 94 % Vinnie Stewart Other [employer] Other 03-02-2022 15:30-0400 Systolic blood pressure 114 mm[Hg] Vinnie Stewart Other [employer] Other 02-19-2022 12:05-0400 Body height 170.18 cm Ruthie Guzman Other [employer] Other 02-19-2022 12:05-0400 Body mass index (BMI) [Ratio] 35.71 kg/m2 Ruthie Clementemond Other [employer] Other 02-19-2022 12:05-0400 Body temperature 97.4 [degF] Ruthie Clementemond Other [employer] Other 02-19-2022 12:05-0400 Body weight 103.42 kg Ruthie Clementemond Other [facility] Other 02-19-2022 12:05-0400 Diastolic blood pressure 62 mm[Hg] Ruthie Megan Other [employer] Other 02-19-2022 12:05-0400 Respiratory rate 20 /min Ruthie Megan Other [facility] Other 02-19-2022 12:05-0400 SaO2% (BldA) [Mass fraction] 94 % Ruthie Megan Other [facility] Other 02-19-2022 12:05-0400 Systolic blood pressure 116 mm[Hg] Ruthie Megan Other [employer] Other 02-07-2022 16:00-0400 Body height 170.18 cm Balbir Mejia Other [employer] Other 02-07-2022 16:00-0400 Body mass index (BMI) [Ratio] 36.02 kg/m2 Balbir Ba Other [facility] Other 02-07-2022 16:00-0400 Body temperature 97.3 [degF] Balbir Mejia Other [employer] Other 02-07-2022 16:00-0400 Body weight 104.33 kg Balbir Mejia Other [employer] Other 02-07-2022 16:00-0400 Diastolic blood pressure 74 mm[Hg] Balbir Ba Other [employer] Other 02-07-2022 16:00-0400 SaO2% (BldA) [Mass fraction] 98 % Balbir Mejia Other [employer] Other 02-07-2022 16:00-0400 Systolic blood pressure 136 mm[Hg] Balbir Ba Other [employer] Other 01-11-2022 14:00-0500 Body height 170.18 cm Brittnee Scally Other [employer] Other 01-11-2022 14:00-0500 Body mass index (BMI) [Ratio] 35.5 kg/m2 Brittnee Scally Other [employer] Other 01-11-2022 14:00-0500 Body weight 102.83 kg Brittnee Scally Other [employer] Other 01-11-2022 14:00-0500 Diastolic blood pressure 62 mm[Hg] Brittnee Scally Other [employer] Other 01-11-2022 14:00-0500 Respiratory rate 20 /min Brittnee Scally Other [employer] Other 01-11-2022 14:00-0500 SaO2% (BldA) [Mass fraction] 98 % Brittnee Scally Other [employer] Other 01-11-2022 14:00-0500 Systolic blood pressure 105 mm[Hg] Brittnee Scally Other [employer] Other 11-16-2021 14:00-0500 Body height 170.18 cm Brittnee Scally Other [employer] Other 11-16-2021 14:00-0500 Body mass index (BMI) [Ratio] 35.72 kg/m2 Brittnee Scally Other [employer] Other 11-16-2021 14:00-0500 Body weight 103.47 kg Brittnee Scally Other [employer] Other 11-16-2021 14:00-0500 Diastolic blood pressure 70 mm[Hg] Brittnee Scally Other [employer] Other 11-16-2021 14:00-0500 Respiratory rate 20 /min Brittnee Scally Other [employer] Other 11-16-2021 14:00-0500 SaO2% (BldA) [Mass fraction] 93 % Brittnee Scally Other [employer] Other 11-16-2021 14:00-0500 Systolic blood pressure 123 mm[Hg] Brittnee Scally Other [employer] Other 10-05-2021 14:45-0500 Body height 170.18 cm Brittnee Scally Other [employer] Other 10-05-2021 14:45-0500 Body mass index (BMI) [Ratio] 35.42 kg/m2 Brittnee Scally Other [employer] Other 10-05-2021 14:45-0500 Body weight 102.6 kg Brittnee Scally Other [employer] Other 10-05-2021 14:45-0500 Diastolic blood pressure 74 mm[Hg] Brittnee Scally Other [employer] Other 10-05-2021 14:45-0500 Respiratory rate 20 /min Brittnee Scally Other [employer] Other 10-05-2021 14:45-0500 SaO2% (BldA) [Mass fraction] 95 % Brittnee Scally Other [employer] Other 10-05-2021 14:45-0500 Systolic blood pressure 123 mm[Hg] Brittnee Scally Other [employer] Other 09-26-2021 12:00-0500 Body height 170.18 cm Vinnie Stewart Other [employer] Other 09-26-2021 12:00-0500 Body mass index (BMI) [Ratio] 35.39 kg/m2 Vinnie Stewart Other [employer] Other 09-26-2021 12:00-0500 Body temperature 98.1 [degF] Vinnie Stewart Other [employer] Other 09-26-2021 12:00-0500 Body weight 102.51 kg Vinnie Stewart Other [employer] Other 09-26-2021 12:00-0500 Diastolic blood pressure 72 mm[Hg] Vinnie Stewart Other [employer] Other 09-26-2021 12:00-0500 Respiratory rate 20 /min Vinnie Stewart Other [employer] Other 09-26-2021 12:00-0500 SaO2% (BldA) [Mass fraction] 95 % Vinnie Stewart Other [employer] Other 09-26-2021 12:00-0500 Systolic blood pressure 118 mm[Hg] Vinnie Stewart Other [employer] Other 12-18-2019 10:11-0500 BMI (Body Mass Index) 35.2 kg/m2 Vinnie [facility] 12-18-2019 10:11-0500 Body weight 108.[address] [facility] 12-18-2019 10:11-0500 Height 175.[address] [facility] 12-18-2019 10:01-0500 Body Temperature 97.8 [degF] Vinnie Stewart [facility] 12-18-2019 10:01-0500 BP Diastolic 80 mm[Hg] Vinnie [facility] 12-18-2019 10:01-0500 BP Systolic 126 mm[Hg] Vinnie Osvaldo [facility] 12-18-2019 10:01-0500 Pulse (Heart Rate) 108 /min Vinnie Stewart [facility] 12-18-2019 10:01-0500 Respiratory Rate 16 /min Vinnie Stewart [facility] Encounters Encounter Date Encounter Type Care Provider Facility Start: 02-20-2024 Non-patient / Non-visit DO Vinnie Stewart [facility] Phone: Start: 02-20-2024 Non-patient / Non-visit DO Vinnie Stewart [facility] Work Phone: Start: 02-19-2024 Non-patient / Non-visit DO Vinnie Stewart Work Phone: [facility] Work Phone: Start: 02-19-2024 End: 02-21-2024 Evaluation and management of inpatient Aziz Bakhous Facility:[facility] Start: 02-19-2024 End: 02-21-2024 Evaluation and management of inpatient DO Vinnie Stewart Work Phone: [facility] [place] [facility] Surg Work Phone: Start: 02-13-2024 Non-patient / Non-visit DO Vinnie Stewart Work Phone: [facility] Work Phone: Start: 02-07-2024 End: 02-05-2024 Non-patient / Non-visit DO Vinnie Stewart Work Phone: [facility] Work Phone: Start: 02-05-2024 End: 02-05-2024 Non-patient / Non-visit DO Vinnie Stewart Work Phone: [facility] Nephrology Work Phone: Start: 01-30-2024 End: 02-05-2024 Non-patient / Non-visit DO Vinnie Stewart Work Phone: [facility] Infectious Disease Work Phone: Start: 01-30-2024 End: 02-05-2024 Non-patient / Non-visit DO Vinnie Stewart Work Phone: [facility] Vascular Surgery Work Phone: Start: 01-29-2024 End: 02-05-2024 Non-patient / Non-visit DO Vinnie Stewart Work Phone: [facility] Pulmonary Disease Work Phone: Start: 01-29-2024 End: 02-05-2024 Non-patient / Non-visit DO Vinnie Stewart Work Phone: [facility] Nephrology Work Phone: Start: 01-28-2024 End: 02-05-2024 Evaluation and management of inpatient Swathi Orianae Facility:[facility] Start: 01-28-2024 End: 02-05-2024 Non-patient / Non-visit DO Vinnie Stewart Work Phone: [facility] Med OutPt Work Phone: Start: 01-28-2024 End: 02-05-2024 Evaluation and management of inpatient DO Vinnie Stewart Work Phone: [facility] [place] Progressive Work Phone: Start: 01-25-2024 End: 01-25-2024 ambulatory BRYCE SHIRLEY [facility] Start: 01-17-2024 End: 01-17-2024 ambulatory Jorge Arroyo Facility:[facility] Start: 01-17-2024 End: 01-17-2024 Departed Referred DO Vinnie Stewart Work Phone: [facility] Start: 12-27-2023 End: 12-27-2023 ambulatory Vinnie Stewart Other [employer] Other Start: 12-27-2023 Telephone encounter Vinnie [facility] Start: 12-20-2023 End: 12-20-2023 ambulatory Vinnie Stewart Other [employer] Other Start: 12-20-2023 Telephone encounter Vinnie [facility] Start: 12-18-2023 End: 12-19-2023 ambulatory VINNIE jean Start: 12-17-2023 End: 12-17-2023 ambulatory Vinnie Stewart Other [employer] Other Start: 12-17-2023 Telephone encounter Vinnie [facility] Start: 12-11-2023 Non-patient / Non-visit DO Vinnie Stewart Work Phone: [facility] Work Phone: Start: 12-10-2023 End: 12-11-2023 ambulatory Vinnie Stewart Facility:[facility] Start: 12-10-2023 End: 12-10-2023 Discharged Recurring DO Vinnie Stewart Work Phone: [facility] Work Phone: Start: 12-10-2023 End: 12-10-2023 ambulatory DO Vinnie Stewart Work Phone: [facility] [employer] Other Start: 12-10-2023 Nursing evaluation o f patient and report Brittnee Hodgsonlouisa [facility] Start: 11-26-2023 End: 11-26-2023 ambulatory BRYCE SHIRLEY [facility] Start: 11-22-2023 End: 11-22-2023 ambulatory Vinnie Stewart Other [employer] Other Start: 11-22-2023 Office outpatient visit 15 minutes Vinnie FRANCISCO [facility] Start: 11-22-2023 Telephone encounter Vinnie ROSALES G [facility] [place] Start: 11-22-2023 End: 11-22-2023 Patient encounter procedure DO Vinnie Stewart Work Phone: [facility] [place] Work Phone: Start: 11-21-2023 End: 11-21-2023 ambulatory Vinnie Stewart Other [employer] Other Start: 11-21-2023 Telephone encounter Vinnie ROSALES [facility] Start: 11-15-2023 End: 11-15-2023 ambulatory Simba Jac Other [employer] Other Start: 11-15-2023 Office outpatient visit 25 minutes Simba Jac [facility] Start: 11-15-2023 End: 11-15-2023 Patient encounter procedure DO Vinnie Stewart Work Phone: [facility] Nephrology [place] Work Phone: Start: 11-13-2023 (DM) Diabetes Brittnee Segov[facility] Start: 11-13-2023 End: 11-13-2023 ambulatory Brittnee Spain Other [employer] Other Start: 11-13-2023 Telephone encounter Brittnee harrington [facility] Start: 11-13-2023 End: 11-13-2023 Patient encounter procedure DO Vinnie Stewart Work Phone: [facility] Work Phone: Start: 11-06-2023 End: 11-06-2023 ambulatory Vinnie Stewart Other [employer] Other Start: 11-06-2023 Telephone encounter Vinnie [facility] Start: 11-01-2023 End: 11-01-2023 ambulatory Brittnee Spain Other [employer] Other Start: 11-01-2023 Telephone encounter Brittnee [place] [facility] Start: 10-25-2023 End: 10-25-2023 ambulatory Vinnie Stewart Other [employer] Other Start: 10-25-2023 Telephone encounter Vinnie [facility] Start: 10-22-2023 End: 10-22-2023 ambulatory Brittnee Spain Other [employer] Other Start: 10-22-2023 Telephone encounter Brittnee merritts [facility] Start: 10-19-2023 End: 10-19-2023 ambulatory Vinnie Stewart Other [employer] Other Start: 10-19-2023 Telephone encounter Vinnie [facility] Start: 10-08-2023 End: 10-08-2023 ambulatory Brittnee Spain Other [employer] Other Start: 10-08-2023 Nursing evaluation o f patient and report Brittnee Spain [facility] Start: 10-08-2023 End: 10-08-2023 Patient encounter procedure DO Vinnie Stewart Work Phone: [facility] Work Phone: Start: 10-04-2023 (Acute) Acute Visit Brittnee harrington [facility] Start: 10-04-2023 End: 10-04-2023 ambulatory Brittnee Spain Other [employer] Other Start: 10-03-2023 End: 10-03-2023 ambulatory Brittnee Spain Other [employer] Other Start: 10-03-2023 Telephone encounter Brittnee merritts [facility] Start: 09-21-2023 End: 09-21-2023 ambulatory [facility] Start: 09-20-2023 End: 09-20-2023 ambulatory Vinnie Stewart Other [employer] Other Start: 09-20-2023 Telephone encounter Vinnie [facility] Start: 09-18-2023 (DM) Diabetes Brittnee Spain [facility] Start: 09-18-2023 End: 09-18-2023 ambulatory Vinnie Stewart Other [employer] Other Start: 09-18-2023 Telephone encounter Vinnie [facility] Start: 09-17-2023 End: 09-17-2023 ambulatory Vinnie Stewart Other [employer] Other Start: 09-17-2023 Telephone encounter Vinnie [facility] [place] Start: 08-31-2023 End: 08-31-2023 ambulatory Brittnee Spain Other [employer] Other Start: 08-31-2023 Telephone encounter Brittnee merritts [facility] Start: 08-30-2023 End: 08-30-2023 ambulatory UNKNOWN PROVIDER [employer] Other Start: 08-30-2023 Telephone encounter Vinnie [facility] [place] Start: 08-23-2023 End: 08-23-2023 ambulatory MASSIMO SWAN [facility] [employer] Other Start: 08-23-2023 Telephone encounter Vinnie ROSALES [facility] [place] Start: 08-20-2023 End: 08-20-2023 ambulatory Vinnie Stewart Other [employer] Other Start: 08-20-2023 Telephone encounter Vinnie ROSALES [facility] [place] Start: 08-15-2023 Telephone encounter Vinnie ROSALES [facility] [place] Start: 08-15-2023 End: 08-15-2023 ambulatory BRYCE WATSON [facility] [employer] Other Start: 08-03-2023 End: 08-03-2023 ambulatory Vinnie Stewart Other [employer] Other Start: 08-03-2023 Telephone encounter Vinnie [facility] [place] Start: 07-30-2023 End: 07-30-2023 ambulatory Vinnie Stewart Other [employer] Other Start: 07-30-2023 Telephone encounter Vinnie ROSALES [facility] Start: 07-27-2023 End: 07-27-2023 ambulatory Vinnie Stewart Other [employer] Other Start: 07-27-2023 Telephone encounter Vinnie ROSALES [facility] [place] Start: 07-24-2023 End: 07-24-2023 ambulatory [facility] Start: 07-20-2023 End: 07-20-2023 ambulatory Vinnie Stewart Other [employer] Other Start: 07-20-2023 Telephone encounter Vinnie ROSALES [facility] [place] Start: 07-19-2023 End: 07-19-2023 ambulatory Vinnie Stewart Other [employer] Other Start: 07-19-2023 Telephone encounter Vinnie ROSALES [facility] [place] Start: 07-16-2023 End: 07-16-2023 ambulatory Vinnie Stewart Other [employer] Other Start: 07-16-2023 Telephone encounter Vinnie ROSALES [facility] [place] Start: 07-12-2023 End: 07-12-2023 ambulatory Vinnie Stewart Other [employer] Other Start: 07-12-2023 Telephone encounter Vinnie ROSALES G [facility] Start: 06-29-2023 (DM) Diabetes Brittnee Spain [facility] Start: 06-29-2023 End: 06-29-2023 ambulatory Vinnie Stewart Other [employer] Other Start: 06-29-2023 Office outpatient visit 15 minutes Vinnie Stewart [facility] [place] Start: 06-18-2023 End: 06-18-2023 ambulatory Vinnie Stewart Other [employer] Other Start: 06-18-2023 Office outpatient visit 15 minutes Vinnie Stewart [facility] Start: 06-15-2023 End: 06-15-2023 ambulatory Vinnie Stewart Other [employer] Other Start: 06-15-2023 Telephone encounter Vinnie [facility] [place] Start: 06-05-2023 End: 06-06-2023 ambulatory [facility] Start: 05-31-2023 End: 05-31-2023 ambulatory Vinnie Stewart Other [employer] Other Start: 05-31-2023 Telephone encounter Vinnie ROSALES [facility] [place] Start: 05-18-2023 End: 05-18-2023 ambulatory Vinnie Stewart Other [employer] Other Start: 05-18-2023 Telephone encounter Vinnie [facility] Start: 05-08-2023 End: 05-08-2023 ambulatory Nicolette Manzano Other [employer] Other Start: 05-08-2023 Telephone encounter Nicolette Manzano [facility] Start: 05-02-2023 End: 05-02-2023 ambulatory Brittnee Spain Other [employer] Other Start: 05-02-2023 Nursing evaluation o f patient and report Brittnee Spain [facility] Start: 04-20-2023 End: 04-20-2023 ambulatory Vinnie Stewart Other [employer] Other Start: 04-20-2023 Telephone encounter Vinnie [facility] Start: 04-19-2023 End: 04-19-2023 ambulatory Simba Jac Other [employer] Other Start: 04-19-2023 Office outpatient visit 15 minutes Gisselle Dickey [facility] Start: 04-19-2023 Office outpatient visit 25 minutes Simba Jac [facility] Start: 04-18-2023 End: 04-18-2023 ambulatory Vinnie Stewart Other [employer] Other Start: 04-18-2023 Telephone encounter Vinnie [facility] Start: 04-17-2023 Telephone encounter Vinnie [facility] Start: 04-17-2023 End: 04-17-2023 [facility] Start: 04-13-2023 End: 04-13-2023 ambulatory Simba Jac Other [employer] Other Start: 04-13-2023 Telephone encounter Simba Jac [facility] Start: 04-11-2023 End: 04-12-2023 ambulatory SIMBA JAC Facility:[facility] Start: 04-02-2023 End: 04-03-2023 ambulatory [facility] [employer] Other Start: 04-02-2023 Telephone encounter Vinnie [facility] Start: 03-27-2023 End: 03-28-[address] DEEPAK FOURNIER . [facility] [employer] Other Start: 03-27-2023 Telephone encounter Brittneejorge l Matt [facility] Start: 03-21-2023 End: 03-21-2023 ambulatory DAHIANA BELCHER [facility] [employer] Other Start: 03-21-2023 Office outpatient visit 15 minutes Vinnie FRANCISCO [facility] [place] Start: 03-19-2023 Telephone encounter Vinnie [facility] Start: 03-19-2023 End: 04-18-2023 ambulatory SHAIKH Jorge L YU [facility] [employer] Other Start: 02-27-2023 End: 02-27-2023 ambulatory Vinnie Stewart Other [facility] [employer] Other Start: 02-27-2023 Telephone encounter Vinnie [facility] Start: 02-21-2023 End: 02-21-2023 ambulatory Yakov To Facility:[facility] Start: 02-21-2023 Office outpatient visit 15 minutes Vinnie FRANCISCO [facility] Start: 02-21-2023 End: 02-21-2023 ambulatory DO Vinnie Stewart Work Phone: [facility] Work Phone: Start: 02-21-2023 End: 02-21-2023 Patient encounter procedure DO Vinnie Stewart Work Phone: [facility] [place] Work Phone: Start: 02-20-2023 End: 02-20-2023 ambulatory Vinnie Stewart Other [employer] Other Start: 02-20-2023 Telephone encounter Vinnie [facility] [place] Start: 02-19-2023 End: 03-16-2023 ambulatory SHAIKH Jorge L YU Facility:[facility] Start: 02-13-2023 End: 02-14-2023 Evaluation and management of inpatient DO Vinnie Stewart Work Phone: [facility] [place] [facility] Work Phone: Start: 02-13-2023 Registered Recurring DO Vinnie Stewart Work Phone: [facility] Work Phone: Start: 02-13-2023 End: 02-13-2023 ambulatory Vinnie Stewart Other [employer] Other Start: 02-13-2023 Telephone encounter Vinnie [facility] Start: 02-09-2023 End: 02-09-2023 ambulatory Vinnie Stewart Other [employer] Other Start: 02-09-2023 Office outpatient visit 15 minutes Vinnie FRANCISCO [facility] Start: 02-05-2023 End: 02-05-2023 ambulatory Vinnie Stewart Other [employer] Other Start: 02-05-2023 Telephone encounter Vinnie [facility] [place] Start: 01-30-2023 End: 01-30-2023 ambulatory Vinnie Stewart Other [employer] Other Start: 01-30-2023 Telephone encounter Vinnie [facility] [place] Start: 01-29-2023 End: 01-30-2023 ambulatory SUSHIL STOUT Facility:[facility] Start: 01-29-2023 End: 01-29-2023 ambulatory [facility] Start: 01-17-2023 Office outpatient visit 15 minutes Vinnie [facility]ANCIS[facility] Start: 01-17-2023 End: 02-16-2023 ambulatory SHAIKH Jorge L YU [facility] [employer] Other Start: 01-16-2023 End: 01-16-2023 ambulatory Vinnie Stewart Other [employer] Other Start: 01-16-2023 Telephone encounter Vinnie [facility] Start: 01-05-2023 End: 01-11-2023 Evaluation and management of inpatient NIK BUNN . Facility: Start: 01-02-2023 End: 01-02-2023 ambulatory CANDELARIA EMA Olson Facility: Start: 01-02-2023 End: 01-03-2023 ambulatory [facility] Facility:[facility] Start: 12-26-2022 End: 12-27-2022 ambulatory [facility] Facility:[facility] Start: 12-22-2022 End: 12-22-2022 ambulatory Vinnie Stewart Other [employer] Other Start: 12-22-2022 Telephone encounter Vinnie [facility] Start: 12-20-2022 End: 01-17-2023 ambulatory SHAIKH Jorge L YU Facility:[facility] Start: 12-19-2022 End: 12-19-2022 ambulatory Vinnie Stewart Other [employer] Other Start: 12-19-2022 Telephone encounter Vinnie [facility] [place] Start: 12-14-2022 End: 12-14-2022 ambulatory Vinnie Stewart Other [employer] Other Start: 12-14-2022 Telephone encounter Vinnie [facility] [place] Start: 12-12-2022 End: 12-12-2022 ambulatory Brittnee Spain Other [employer] Other Start: 12-12-2022 Nursing evaluation o f patient and report Brittnee Carson [facility] Start: 12-11-2022 End: 12-11-2022 ambulatory Vinnie Stewart Other [employer] Other Start: 12-11-2022 Telephone encounter Vinnie [facility] Start: 12-04-2022 End: 12-04-2022 ambulatory DO Vinnie Stewart Work Phone: [facility] Work Phone: Start: 12-04-2022 End: 12-04-2022 Registered Recurring DO Vinnie Stewart Work Phone: [facility] Work Phone: Start: 11-29-2022 End: 11-29-2022 ambulatory Vinnie Stewart Other [employer] Other Start: 11-29-2022 Telephone encounter Vinnie Palomino [facility] Start: 11-27-2022 End: 11-27-2022 ambulatory Vinnie Stewart Other [employer] Other Start: 11-27-2022 Telephone encounter Vinnie Palomino [facility] Start: 11-20-2022 End: 12-20-2022 ambulatory SHAIKH Jorge L YU Facility: Start: 11-14-2022 End: 11-15-[address] YEN [facility] [employer] Other Start: 11-14-2022 Telephone encounter Vinnie [facility] Start: 11-07-2022 (DM) [facility] Start: 11-07-2022 End: 11-07-2022 ambulatory Brittnee Spain Other [employer] Other Start: 11-07-2022 Registered Recurring DO Vinnie Stewart Work Phone: [facility] Work Phone: Start: 11-01-2022 End: 11-01-2022 ambulatory Brittnee Spain Other [employer] Other Start: 11-01-2022 Telephone encounter Brittnee Matt juany [facility] Start: 10-31-2022 End: 10-31-2022 ambulatory Vinnie Stewart Other [employer] Other Start: 10-31-2022 Telephone encounter Vinnie [facility] Start: 10-27-2022 Telephone 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[employer] Start: 10-27-2022 End: 10-28-2022 ambulatory BRYCE HARRISONS [facility] Other Start: 10-19-2022 End: 11-19-2022 ambulatory SHAIKH Jorge L VEGAANKUSH Facility: Start: 10-11-2022 End: 10-11-2022 ambulatory Brittnee Spain Other [employer] Other Start: 10-11-2022 Telephone encounter Brittneepilo harrington [facility] Start: 10-09-2022 End: 10-09-2022 ambulatory Vinnie Stewart Other [employer] Other Start: 10-09-2022 Telephone encounter Vinnie Palomino [facility] Start: 10-05-2022 End: 10-05-2022 ambulatory Vinnie Stewart Other [employer] Other Start: 10-05-2022 Telephone encounter Vinnie [facility] Start: 10-03-2022 End: 10-03-[address] BIANCA STUART Facility:[facility] Start: 09-28-2022 End: 09-28-2022 ambulatory Simba Jac Other [employer] Other Start: 09-28-2022 Office outpatient visit 15 minutes Gisselle Dickey [facility] Start: 09-28-2022 Office outpatient visit 25 minutes Simba Jac [facility] Start: 09-27-2022 End: 09-27-2022 ambulatory Vinnie Setwart Other [employer] Other Start: 09-27-2022 Telephone encounter Vinnie [facility] [place] Start: 09-19-2022 End: 10-18-2022 ambulatory SHAIKH Jorge L YU Facility:H1 Start: 09-18-2022 Telephone encounter [facility]nee [facility] Start: 09-18-2022 End: 09-19-2022 ambulatory SIMBA JAC [facility] Other Start: 09-13-2022 End: 09-13-2022 ambulatory Vinnie Stewart Other [employer] Other Start: 09-13-2022 Office outpatient visit 15 minutes Vinnie FRANCISCO [facility] Start: 09-08-2022 End: 09-08-2022 ambulatory Vinnie Stewart Other [employer] Other Start: 09-08-2022 Telephone encounter [facility] [place] Start: 08-31-2022 End: 08-31-2022 ambulatory Brittnee Spain Other [employer] Other Start: 08-31-2022 Telephone encounter [facility] Start: 08-21-2022 End: 08-21-2022 ambulatory Vinnie Stewart Other [employer] Other Start: 08-21-2022 Telephone encounter [facility] Start: 08-20-2022 End: 09-18-2022 ambulatory SHAIKH Jorge L KALPANALAISHAD Facility:[facility]1 Start: 08-02-2022 End: 08-02-2022 ambulatory Vinnie Stewart Other [employer] Other Start: 08-02-2022 Telephone encounter [facility] Start: 07-31-2022 (DM) Diabetes Brittnee Spain [facility] Start: 07-31-2022 End: 07-31-2022 ambulatory Brittnee Remalouisa Other [employer] Other Start: 07-20-2022 End: 08-19-2022 ambulatory SHAIKH Jorge L YU Facility:[facility] Start: 07-19-2022 End: 07-20-2022 ambulatory [place] SWAN Facility:[facility]1 Start: 07-18-2022 End: 07-18-2022 ambulatory Brittnee Spain Other [employer] Other Start: 07-18-2022 Telephone encounter Brittnee Remalouisa [facility] Start: 07-11-2022 End: 07-11-2022 ambulatory Vinnie Stewart Other [employer] Other Start: 07-11-2022 Telephone encounter [facility] Start: 06-27-2022 End: 06-27-2022 ambulatory Vinnie Stewart Other [employer] Other Start: 06-27-2022 Telephone encounter [facility] Start: 06-23-2022 End: 06-24-2022 ambulatory JORGE ARROYO Facility:[facility] Start: 06-20-2022 End: 06-20-2022 ambulatory Vinnie Stewart Other [employer] Other Start: 06-20-2022 Office outpatient visit 15 minutes [facility]innie [facility] Start: 06-19-2022 Telephone encounter [facility] Start: 06-19-2022 End: 07-19-2022 ambulatory SHAIKH Jorge L YU [facility] Other Start: 06-13-2022 End: 06-16-2022 Evaluation and management of inpatient SHAIKH Jorge L YU Facility:[facility]1 Start: 06-06-2022 End: 06-06-2022 ambulatory Vinnie Stewart Other [employer] Other Start: 06-06-2022 Telephone encounter [facility] Start: 06-01-2022 End: 06-02-2022 ambulatory [facility] Facility:[facility]1 Start: 05-30-2022 End: 05-30-2022 ambulatory Vinnie Stewart Other [employer] Other Start: 05-30-2022 Telephone encounter [facility] Start: 05-25-2022 End: 05-26-2022 ambulatory PETER D [facility] Facility:[facility]1 Start: 05-19-2022 End: 06-16-2022 ambulatory SHAIKH Jorge L YU Facility:[facility]1 Start: 05-18-2022 End: 05-19-2022 ambulatory [facility] D [facility] Facility:[facility]1 Start: 05-17-2022 End: 05-17-2022 ambulatory Brittnee Spain Other [employer] Other Start: 05-17-2022 Telephone encounter [facility] Start: 05-16-2022 End: 05-16-2022 ambulatory Vinnie Stewart Other [employer] Other Start: 05-16-2022 Telephone encounter [facility] [place] Start: 05-08-2022 End: 05-10-2022 ambulatory VINNIE STEWART Facility:[facility] Start: 05-04-2022 End: 05-04-2022 ambulatory Vinnie Stewart Other [employer] Other Start: 05-04-2022 Telephone encounter Vinnie ROSALES G [facility] [place] Start: 04-28-2022 End: 05-02-2022 Evaluation and management of inpatient SHAIKH Jorge L YU Facility:[facility]1 Start: 04-26-2022 End: 04-26-2022 ambulatory Brittnee Judit Other [employer] Other Start: 04-26-2022 Telephone encounter Brittneejorge l [place] Sh[facility] Start: 04-25-2022 End: 04-25-2022 ambulatory Vinnie Stewart Other [employer] Other Start: 04-25-2022 Telephone encounter [facility] Start: 04-24-2022 End: 04-24-2022 ambulatory Vinnie Stewart Other [employer] Other Start: 04-24-2022 Telephone encounter Vinnei ROSALES [facility] [place] Start: 04-10-2022 End: 04-10-2022 ambulatory Brittnee Spain Other [employer] Other Start: 04-10-2022 Telephone encounter Brittneejorge l [place] [facility] Start: 03-21-2022 End: 03-21-2022 ambulatory Vinnie Stewart Other [employer] Other Start: 03-21-2022 Telephone encounter Vinnie ROSALES [facility] [place] Start: 03-17-2022 End: 03-17-2022 ambulatory Vinnie Stewart Other [employer] Other Start: 03-17-2022 Telephone encounter Vinnie ROSALES [facility] [place] Start: 03-03-2022 End: 03-03-2022 ambulatory Vinnie Stewart Other [employer] Other Start: 03-03-2022 Telephone encounter Vinnie ROSALES [facility] [place] Start: 03-02-2022 End: 03-02-2022 ambulatory Vinnie Stewart Other [employer] Other Start: 03-02-2022 Office outpatient visit 15 minutes Vinnie Stewart [facility] Start: 02-20-2022 End: 02-20-2022 ambulatory Vinnie Stewart Other [employer] Other Start: 02-20-2022 Telephone encounter Vinnie ROSALES [facility] [place] Start: 02-19-2022 End: 02-19-2022 ambulatory Ruthie Guzman Other [employer] Other Start: 02-19-2022 Office outpatient visit 15 minutes Ruthie Guzman [facility] Start: 02-19-2022 Telephone encounter [facility]innie [facility]ALES [facility] Start: 02-10-2022 End: 02-10-2022 ambulatory Vinnie Stewart Other [employer] Other Start: 02-10-2022 Telephone encounter Vinnie ROSALES [facility] [place] Start: 02-07-2022 End: 02-07-2022 ambulatory Balbir Ba Other [employer] Other Start: 02-07-2022 Office outpatient visit 25 minutes Balbir Ba [facility] Start: 02-06-2022 End: 02-06-2022 ambulatory Vinnie Stewart Other [employer] Other Start: 02-06-2022 Telephone encounter [facility] Start: 01-27-2022 End: 01-27-2022 ambulatory Vinnie Stewart Other [employer] Other Start: 01-27-2022 Telephone encounter Vinine [facility] Start: 01-26-2022 End: 01-26-2022 ambulatory Vinnie Stewart Other [employer] Other Start: 01-26-2022 Telephone encounter [facility] Start: 01-11-2022 (DM) Diabetes Brittnee [facility] Start: 01-11-2022 End: 01-11-2022 ambulatory Brittnee Spain Other [employer] Other Start: 01-10-2022 End: 01-10-2022 ambulatory Vinnie Stewart Other [employer] Other Start: 01-10-2022 Telephone encounter [facility] Start: 01-05-2022 End: 01-05-2022 ambulatory Brittnee Spain Other [employer] Other Start: 01-05-2022 Telephone encounter Brittnee Matt [facility] Start: 12-26-2021 End: 12-26-2021 ambulatory Vinnie Stewart Other [employer] Other Start: 12-26-2021 Telephone encounter [facility] Start: 12-20-2021 End: 12-20-2021 ambulatory Brittnee Spain Other [employer] Other Start: 12-20-2021 Telephone encounter Brittnee Matt [facility] Start: 12-09-2021 End: 12-09-2021 ambulatory Vinnie Stewart Other [employer] Other Start: 12-09-2021 Telephone encounter [facility] Start: 11-30-2021 End: 11-30-2021 ambulatory Vinnie Stewart Other [employer] Other Start: 11-30-2021 Telephone encounter [facility] Start: 11-29-2021 End: 11-29-2021 ambulatory Brittnee Spain Other [employer] Other Start: 11-29-2021 Telephone encounter Brittnee Remalouisa [facility] Start: 11-28-2021 End: 11-28-2021 ambulatory Brittnee Remalouisa Other [employer] Other Start: 11-28-2021 Telephone encounter Vinnie Palomino [facility] [place] Start: 11-21-2021 End: 11-21-2021 ambulatory Brittnee Spain Other [employer] Other Start: 11-21-2021 Telephone encounter Brittnee Spain [facility] Start: 11-17-2021 End: 11-17-2021 ambulatory Vinnie Stewart Other [employer] Other Start: 11-17-2021 Telephone encounter Vinnie Palomino [facility] [place] Start: 11-16-2021 (DM) Diabetes Brittnee Judit [facility] Start: 11-16-2021 End: 11-16-2021 ambulatory Brittnee Remalouisa Other [employer] Other Start: 10-11-2021 End: 10-11-2021 ambulatory Vinnie Stewart Other [employer] Other Start: 10-11-2021 Telephone encounter Vinnie duron [facility] Start: 10-10-2021 End: 10-10-2021 ambulatory Vinnie Stewart Other [employer] Other Start: 10-10-2021 Telephone encounter Vinnie ROSALES G [facility] Start: 10-05-2021 (DM) Diabetes Brittnee Hodgsonlouisa [facility] Start: 10-05-2021 End: 10-05-2021 ambulatory Brittnee Remalouisa Other [employer] Other Start: 09-26-2021 End: 09-26-2021 ambulatory Vinnie Stewart Other [employer] Other Start: 09-26-2021 Office outpatient visit 15 minutes Vinnie FRANCISCO [facility] Start: 09-16-2021 End: 09-16-2021 ambulatory Brittnee Spain Other [employer] Other Start: 09-16-2021 Telephone encounter Brittnee Remalouisa [facility] Start: 04-12-2021 End: 04-17-2021 Evaluation and management of inpatient [place] Facility:[facility] Start: 12-16-2020 End: 12-16-2020 Patient encounter procedure Vinnie Stewart -[facility] Start: 12-06-2020 Registered Recurring Vinnie [facility] Start: 12-18-2019 End: 12-18-2019 Discharged Recurring Vinnie Stewart [facility] [place] Start: 09-23-2019 End: 09-23-2019 Patient encounter procedure Vinnie Stewart -[facility] Start: 02-24-2019 End: 02-24-2019 Admission to day surgery Vinnie Stewart [facility] Procedures Date Procedure Procedure Detail Performing Clinician Start: 02-19-2024 Antibody screen Yakov [place]ton Comment on above: Order Comment: Trans fuse now? Y Number of units to transfuse now? 1 Transfuse now? Y Number of units to transfuse now? 1 Result Comment: PERF ORMED BY: [facility] [address] PATHOLOGIST SUPERVISOR [employer] RAFA BYRNE M.D. Start: 02-19-2024 Plain chest X-ray DO Rhonda Stewart Work Phone: Start: 02-19-2024 Lactoferrin measurement DO Vinnie Stewart Work Phone: Start: 02-19-2024 Screening for occult blood in feces DO Vinnie Stewart Work Phone: Start: 02-04-2024 IR Angiogram w/TLA/S tent Left Leg (Left) DO Vinnie Stewart Work Phone: Start: 01-31-2024 Catheterization DO Stephen Stewart Work Phone: Start: 01-30-2024 Pulse volume recorde r pneumoplethysmography DO Vinnie Stewart Work Phone: Start: 01-29-2024 Aerobic microbial culture DO Vinnie Stewart Work Phone: Start: 01-29-2024 Urine culture DO Vinnie Stewart Work Phone: Start: 02-13-2023 CT of head without contrast DO Vinnie Stewart Work Phone: Start: 02-13-2023 Plain chest X-ray DO Rhonda Stewart [facility] Phone: Start: 04-13-2021 INTRODUCE OF OTH THE RAP SUBST INTO RESP TRACT, VIA OPENING BALBIR STUBBS Start: 04-13-2021 ULTRASONOGRAPHY OF R IGHT AND LEFT HEART, TRANSESOPHAGEAL SAMER Tiffany BOYD Start: 12-04-2019 Aerobic microbial culture Vinnie Stewart Start: 12-04-2019 End: 12-04-2019 Anaerobic microbial culture Vinnie eduardo Start: 12-04-2019 Investigation of tra nsfusion reaction Vinnie Stewart Start: 12-04-2019 X-ray of left foot Stephen Stewart Plan of Treatment Date Care Activity Detail Author Start: 02-21-2024 [facility] Start: 02-20-2024 Administration of prophylactic treatment [facility] Start: 02-19-2024 Hospital admission [facility] Start: 02-19-2024 Referral to brand analyst [facility] Start: 02-19-2024 [facility] Start: 02-19-2024 Referral to fire extinguisher installer [facility] Start: 02-05-2024 [facility] Start: 02-04-2024 Physical therapy procedure [facility] Start: 01-30-2024 Referral to vascular surgeon [facility] Start: 01-29-2024 Referral to vascular surgeon [facility] Start: 01-29-2024 Referral to internal controls manager [facility] Start: 01-28-2024 Referral to infectious diseases physician [facility] Start: 01-28-2024 Hospital admission [facility] Start: 01-28-2024 Referral to fire extinguisher installer [facility] Start: 01-28-2024 Dilation of Left Femoral Artery, Percutaneous Approach Dilation of Left Femoral Artery, Percutaneous Approach [facility] Start: 01-28-2024 Extirpation of Matter from Left Femoral Artery, Percutaneous Approach Extirpation of Matter from Left Femoral Artery, Percutaneous Approach [facility] Start: 01-28-2024 Insertion of Infusion Device into Right Femoral Vein, Percutaneous Approach Insertion of Infusion Device into Right Femoral Vein, Percutaneous Approach [facility] Start: 01-28-2024 Insertion of Infusion Device into Superior Vena Cava, Percutaneous Approach Insertion of Infusion Device into Superior Vena Cava, Percutaneous Approach [facility] Start: 01-28-2024 Insertion of Tunneled Vascular Access Device into Chest Subcutaneous Tissue and Fascia, Percutaneous Approach Insertion of Tunneled Vascular Access Device into Chest Subcutaneous Tissue and Fascia, Percutaneous Approach [facility] Start: 01-28-2024 Performance of Urinary Filtration, Intermittent, Less than 6 Hours Per Day Performance of Urinary Filtration, Intermittent, Less than 6 Hours Per Day [facility] Start: 01-28-2024 Removal of Tunneled Vascular Access Device from Trunk Subcutaneous Tissue and Fascia, Open Approach Removal of Tunneled Vascular Access Device from Trunk Subcutaneous Tissue and Fascia, Open Approach [facility] Start: 02-23-2023 [facility] Start: 02-22-2023 [facility] Start: 02-21-2023 [facility] Start: 02-20-2023 [facility] Start: 02-19-2023 [facility] Start: 02-18-2023 Blood chemistry [facility] Start: 02-18-2023 [facility] Start: 02-17-2023 Blood chemistry [facility] Start: 02-17-2023 [facility] Start: 02-16-2023 Blood chemistry [facility] Start: 02-16-2023 [facility] Start: 02-15-2023 Blood chemistry [facility] Start: 02-15-2023 [facility] Start: 02-14-2023 Blood chemistry [facility] Start: 02-14-2023 End: 02-14-2023 [facility] Start: 02-14-2023 [facility] Start: 02-13-2023 Hospital admission [facility] Start: 02-13-2023 Physical therapy procedure [facility] Start: 02-13-2023 Referral to occupational therapist [facility] Start: 02-13-2023 [facility] Patient Education [facility] Work Phone: Patient referral [facility] Work Phone: [facility] Immunizations Immunization Date Immunization Notes Care Provider Fa cility 08-23-2021 COVID-19 Vaccine Pfizer - Documentation Purposes Only Vinnie Stewart Other [facility] 08-10-2021 influenza, seasonal, injectable Vinnie Stewart Other [facility] 01-14-2021 COVID-19 Vaccine Pfizer - Documentation Purposes Only Vinnie Stewart Other [facility] 01-04-2021 COVID-19 Vaccine Moderna - Documentation Purposes Only Vinnie Stewart Other [facility] 12-24-2020 COVID-19 Vaccine Pfizer - Documentation Purposes Only Vinnie Stewart Other [facility] 10-19-2020 pneumococcal conjugate vaccine, 13 valent Vinnie Stewart Other [facility] 08-16-2018 zoster vaccine recombinant Vinnie Stewart Other [facility] 08-23-2016 pneumococcal polysaccharide vaccine, 23 valent Vinnie Stewart Other [facility] 08-21-2016 influenza, injectable, quadrivalent, preservative free DO Vinnie Stewart Work Phone: [facility] 08-21-2016 influenza, injectable, quadrivalent, contains preservative Vinnie Stewart Other [employer] Other NEGATED: Highlighted row has not occurred! 5 influenza, injectable, quadrivalent, contains preservative Patient Objection Vinnie Stewart Other [employer] Other Payers Date Payer Category Payer Self-pay [id number] 1960 Medicaid [id number] 1959 Unknown [id number] 1954 Unknown [id number] 2.16.8 40.1.447671.3.579.2.647 1954 Unknown [id number] 2.16.84 0.1.395263.3.579.2.593 1954 Unknown [id number] 2.16.84 0.1.441592.3.579.2.593 1954 Unknown [id number] 2.16.84 0.1.927282.3.579.2.593 1954 Unknown [id number] 2.16.84 0.1.020065.3.579.2.593 1954 Unknown [id number] 2.16.84 0.1.906498.3.579.2.593 1954 Unknown [id number] 2.16.84 0.1.966708.3.579.2.593 1954 Unknown [id number] 2.16.84 0.1.241679.3.579.2.593 1954 Unknown [id number] 2.16.84 0.1.125217.3.579.2.593 1954 Unknown [id number] 2.16.84 0.1.173716.3.579.2.593 1954 Unknown [id number] 2.16.84 0.1.906965.3.579.2.593 1954 Unknown [id number] 2.16.84 0.1.159650.3.579.2.593 1954 Unknown [id number] 2.16.84 0.1.346325.3.579.2.593 1954 Unknown [id number] 2.16.84 0.1.814585.3.579.2.593 1954 Unknown [id number] 2.16.84 0.1.411777.3.579.2.593 1954 Unknown [id number] 2.16.84 0.1.225027.3.579.2.593 1954 Unknown [id number] 2.16.84 0.1.149587.3.579.2.593 1954 Unknown [id number] 2.16.84 0.1.640735.3.579.2.593 1954 Unknown [id number] 2.16.84 0.1.395714.3.579.2.593 1954 Unknown [id number] 2.16.84 0.1.386106.3.579.2.593 1954 Unknown [id number] 2.16.84 0.1.949202.3.579.2.593 1954 Unknown [id number] 2.16.84 0.1.127131.3.579.2.593 1954 Unknown [id number] 2.16.84 0.1.483321.3.579.2.593 1954 Unknown [id number] 2.16.84 0.1.003325.3.579.2.593 1954 Unknown [id number] 2.16.84 0.1.693156.3.579.2.593 1954 Unknown [id number] 2.16.84 0.1.386760.3.579.2.593 1954 Unknown [id number] 2.16.84 0.1.512121.3.579.2.593 1954 Unknown [id number] 2.16.84 0.1.975331.3.579.2.593 1954 Unknown [id number] 2.16.84 0.1.413793.3.579.2.593 1954 Unknown [id number] 2.16.84 0.1.289484.3.579.2.593 1954 Unknown [id number] 2.16.84 0.1.279441.3.579.2.593 1954 Unknown [id number] 2.16.84 0.1.951565.3.579.2.593 1954 Unknown [id number] 2.16.84 0.1.247180.3.579.2.593 1954 Unknown [id number] 2.16.84 0.1.175177.3.579.2.593 1954 Unknown [id number] 2.16. 840.1.943036.3.579.2.732 1954 Unknown [id number] 2.16.8 40.1.795794.3.579.2.1286 Medicare [id number] [id number] Unknown [id number] Unknown [id number] 2.16.8 40.1.819181.3.579.2.531 Unknown [id number] 2.16.8 40.1.049987.3.579.2.531 Unknown [id number] 2.16.8 40.1.181137.3.579.2.531 Unknown [id number] 2.16.8 40.1.305292.3.579.2.531 Unknown [id number] 2.16.8 40.1.365752.3.579.2.531 Social History Date Type Detail Facility Start: 12-18-2019 End: 02-20-2024 Tobacco smoking status NHIS Ex-smoker (finding) [facility] Start: 1955 Sex Assigned At Male F [facility] Sex Assigned At Sex Assigned At Bir th [facility] [employer] Other Medical Equipment Procedure Code Equipment Code Equipment Origin al Text Equipment Identifier Dates Insertion, catheter, dialysis, tunneled, with imaging guidance Double-lumen haemodialysis catheter, implantable [id number] [id number] Start: 01-31-2024 Pen Lowell 32G X 4 MM Start: 03-21-2022 Goals Date Patient Goal Desired Activity /State Functional Status Date Assessment Result Facility 02-21-2024 Functional status Patient at Baseline [facility] Work Phone: 02-19-2024 Functional status Patient Not at Baseline [facility] Work Phone: 02-05-2024 Functional status Patient at Baseline [facility] Work Phone: 02-14-2023 Functional status Patient at Baseline [facility] Work Phone: Mental Status Date Assessment Result Facility 02-21-2024 Cognitive function Cognitive Sta tus Patient at Baseline [facility] Work Phone: 02-19-2024 Cognitive function Cognitive Sta tus Patient at Baseline [facility] Work Phone: 02-05-2024 Cognitive function Cognitive Sta tus Patient at Baseline [facility] Work Phone: 02-14-2023 Cognitive function Cognitive Sta tus Patient at Baseline [facility] Work Phone: Clinical Notes 04-18-2021 to 02-21-2024 Note Date & Type Note Facility 02-21-2024 Progress note Note Date/Time February 21, 2024 11:05am [facility] [address] [place] [address] Nephrology Progress Note Signed Patient: Adwoa Porter MR#: [id number] : 1955 Acct:[id number] Age/Sex: 68 / M Adm Date: 4 Loc: Room: [address] [place] [address] Type: ADM IN Attending Dr: Butch Rodney MD Copies to: ~ Date of Service: 02/21/2024 Subjective Subjective Narrative: This is a 68-year-old male patient with a past medical history of hypertension, diabetes, heart failure with reduced ejection fraction (last ejection fraction 15%), coronary disease, acute kidney injury on chronic kidney disease in the last admission from amikacin induced ATN on Sunday hemod[facility]che[facility] at [facility]. Recent lower extremity wound infection and currently on Invanz and Zyvox as outpatient. Paroxysmal A-fib, COPD. Status post AICD placement, anemia, hypothyroidism. Patient currently residing at [facility]. Patient was brought into the hospital for worsening anemia and suspected GI bleed. Patient has been having frequent diarrhea bowel movement for the last 5 days. C. difficile toxin is negative at admission. Lab at admission showed hemoglobin6.9 g deciliter. Patient was given 1 unit of RBCs. Repeated labs this morning reviewed hemoglobin up to 7.6 mg deciliter. There has been no recovery of kidney function. Lab from this morning revealed potassium 5.3 mg deciliter and BUN 82, serum bicarb 18.5, potassium 5.0 and sodium 131. GI is in consult Reviewed the patient's home medication he is on hydralazine, isosorbide dinitrate, vitamin B12, Eliquis, Coreg, Bumex Hemodialysis and was arranged for today as per his regular schedule. Noted low blood pressure this morning. Ultrafiltration is set at 2 L. Patient was given 1 dose of midodrine 10 mg this morning Continues to have generalized weakness. Currently on room air. Heart rate is 85 and blood pressure 90/50. Interval history: Patient was seen and examined in his room. Patient stated diarrhea is better. No abdominal pain. No nausea no vomiting. Continues to be on nasal cannula 2 L/min. Blood pressure stable. Patient tolerated hemodialysis session well yesterday with 2 L ultrafiltration. Patient was given 1 dose of midodrine yesterday with hemodialysis to help ultrafiltration Continues to be on Zyvox and Invanz for left foot wound infection There has been no recovery of kidney function. Patient SHIRA on CKD from amikacininduced ATN. Patient started on hemodialysis January 29, 2024 Exam Physical Exam Vital Signs: Temp Pulse Resp BP Pulse Ox O2 Del Method O2 Flow Rate 97.9 F 85 18 97/62 L 100 Nasal Cannula 2 02/21/24 07:57 02/21/24 07:57 02/21/24 07:57 02/21/24 07:57 02/21/24 07:57 02/21/24 08:37 02/21/24 08:37 Narrative: General: No acute distress Head :atraumatic normocephalic Eyes: PERRLA. Neck: no JVD no bruit. Heart: S1-S2. RRR Respiratory: Clear to auscultation. No wheezing. No crackles Abdomen: Soft, positive bowel sounds,no tenderness. Neurology: Awake alert oriented x3. No focal deficits Extremity. No cyanosis. +1 edema of lower extremities Skin: No skin rash Objective Intake and Output I&O: Intake & Output 02/18/24 02/19/24 02/20/24 02/21/24 23:59 23:59 23:59 23:59 Intake Total 320 / 320 1180 / 1180 480 / 480 Output Total 1999 / 1999 0 / 0 Balance 320 / 320 -820 / -820 480 / 480 Weight 224 lb 6.889 oz 234 lb 5.622 oz Meds and Allergies Meds: Active Medications Hydrocodone Bitart/Acetaminophen (Hydrocodone/Acetaminophen 5-325 Mg Tablet) 1 tab PO Q8HR PRN PRN Reason: pain Last Admin: 02/21/24 09:32 Dose: 1 tab Albuterol (Albuterol Neb 2.5 Mg/3 Ml Vial.Neb) 2.5 mg INHALATION Q4H PRN PRN Reason: breathing Stop: 02/18/25 17:34 Albuterol (Albuterol Hfa 60 Puff/8 Gram Inhaler) 2 puff INHALATION Q4H PRN PRN Reason: breathing Stop: 02/18/25 17:34 Atorvastatin Calcium (Atorvastatin 80 Mg Tablet) 80 mg PO DAILY [facility] Stop: 02/19/25 08:59 Last Admin: 02/21/24 09:32 Dose: 80 mg Budesonide/Formoterol Fumarate (Budesonide/Formoterol 160-4.5 Mcg 60 Puff/6 Gm Hfa.Aer.Ad) 2 puff INHALATION BID RACHANA Stop: 02/18/25 20:59 Last Admin: 02/21/24 08:36 Dose: 2 puff Carvedilol (Carvedilol 12.5 Mg Tablet) 12.5 mg PO BID [facility] Stop: 02/18/25 20:59 Last Admin: 02/21/24 09:31 Dose: 12.5 mg Darbepoetin Baljinder (Darbepoetin Baljinder In Polysorbat 40 Mcg/Ml Vial) 40 mcg IV-PUSHWE RACHANA; Protocol Stop: 02/19/25 08:59 Last Admin: 02/20/24 10:30 Dose: 40 mcg Dextrose (Dextrose 50% In Water 25 Gm/50 Ml Syringe) 0 gm IV-PUSH PRN PRN PRN Reason: Hypoglycemia Stop: 02/19/25 00:07 Folic Acid (Folic Acid 1 Mg Tablet) 1 mg PO DAILY [facility] Stop: 02/20/25 08:59 Last Admin: 02/21/24 09:32 Dose: 1 mg Gabapentin (Gabapentin 100 Mg Capsule) 200 mg PO BID RACHANA Stop: 02/18/25 20:59 Last Admin: 02/21/24 09:30 Dose: 200 mg Glucose (Dextrose 40% Gel 15 Gm Tube) 0 gm PO PRN PRN PRN Reason: Hypoglycemia Stop: 02/19/25 00:07 Heparin Sodium (Porcine) (Heparin 10,000 Unit/10 Ml Vial) 3,800 unit IV PRN PRN PRN Reason: Dialysis Stop: 02/19/25 10:34 Last Admin: 02/20/24 11:01 Dose: 3,800 unit Ertapenem 0.5 gm/ Sodium (Chloride) 100 mls @ 200 mls/hr IV Q24H [facility] Stop: 02/19/25 13:59 Last Admin: 02/20/24 13:14 Dose: 200 mls/hr Sodium Chloride (0.9% Sodium Chloride 1,000 Ml) 1,000 mls @ 0 mls/hr MISCELLANE.Q0M PRN PRN Reason: Dialysis Stop: 02/19/25 08:46 Last Infusion: 02/20/24 10:35 Dose: Infused Sodium Chloride (0.9 % Sodium Chloride) 500 mls @ 20 mls/hr IV PROTOCOL PRN PRN Reason: BLOOD TRANSFUSION Stop: 02/22/24 10:15 Insulin Aspart (Insulin Aspart 300 Units/3 Ml Insuln.Pen) 0 units SUBCUT TID.WM.HS [facility]; Protocol Stop: 02/19/25 07:59 Last Admin: 02/21/24 09:33 Dose: Not Given Insulin Glargine (Insulin Glargine 300 Units/3 Ml Insuln.Pen) 8 units SUBCUT QAM [facility] Stop: 02/19/25 08:59 Last Admin: 02/21/24 09:33 Dose: 8 units Isosorbide Dinitrate (Isosorbide Dinitrate 20 Mg Tablet) 20 mg PO BID@0900,1300[facility] Stop: 02/18/25 20:59 Last Admin: 02/21/24 09:32 Dose: 20 mg Levothyroxine Sodium (Levothyroxine 50 Mcg Tablet) 50 mcg PO DAILY@0630 [facility] Stop: 02/19/25 06:29 Last Admin: 02/21/24 07:00 Dose: 50 mcg Linezolid (Linezolid 600 Mg Tablet) 600 mg PO BID [facility] Last Admin: 02/21/24 09:31 Dose: 600 mg Midodrine (Midodrine 5 Mg Tablet) 10 mg PO DAILY PRN PRN Reason: dialysis Stop: 02/19/25 09:17 Last Admin: 02/20/24 09:53 Dose: 10 mg Morphine Sulfate (Morphine Sulfate 2 Mg/Ml Vial) 1 mg IV-PUSH Q4H PRN PRN Reason: Pain Scale 7 - 10 Nitroglycerin (Nitroglycerin 0.4 Mg Tab.Subl) 0.4 mg SUBLINGUAL Q5MIN.X3 PRN PRN Reason: Chest Pain Stop: 02/18/25 17:34 Nystatin (Nystatin 100,000 Unit/Gram Powder 15 Gm Bottle) 1 applic TOPICAL TID RACHANA Stop: 02/18/25 21:59 Last Admin: 02/20/24 22:58 Dose: 1 applic Pantoprazole Sodium (Pantoprazole 40 Mg Tablet.Dr) 40 mg PO BID RACHANA Stop: 02/20/25 08:59 Last Admin: 02/21/24 09:32 Dose: 40 mg Potassium Chloride (Potassium Chloride Er 20 Meq Tab.Er.Prt) 40 meq PO DAILY PRN PRN Reason: Hypokalemia Stop: 02/18/25 17:36 Sodium Chloride (Sodium Chloride 0.9 % 10 Ml Syringe) 0 ml IV-PUSH PRN PRN PRN Reason: Flush Stop: 02/18/25 11:02 Last Admin: 02/19/24 22:06 Dose: 10 ml Sodium Chloride (Sodium Chloride 0.9 % 10 Ml Syringe) 10 ml IV-PUSH PRN PRN PRN Reason: Flush Stop: 02/18/25 11:56 Last Admin: 02/19/24 12:24 Dose: 10 ml Sodium Chloride (Sodium Chloride 0.9 % 10 Ml Syringe) 0 ml IV-PUSH PRN PRN PRN Reason: Flush Stop: 02/19/25 08:46 Last Admin: 02/20/24 10:31 Dose: 40 ml Vitamin A/Vitamin D (Vitamin A & D Oint 113 Gm Tube) 1 applic TOPICAL TID RACHANA Stop: 02/18/25 21:59 Last Admin: 02/20/24 22:58 Dose: 1 applic Allergies LUPIS Inhibitors Allergy (Unknown, Verified 02/19/24 11:23) Cough Results - Nephrology Labs 02/21/24 04:20 02/21/24 04:20 Labs: 02/21/24 04:20 BUN 56 H Creatinine 4.13 H D Radiology Impressions Impressions - last 24 hours: Any impression(s) listed above is documentation that was entered by the reading physician into a diagnostic report(s) for Adwoa Porter. I have reviewed the report(s) and am incorporating any findings in the treatment plan of this patient where applicable. A&P - Nephrology Assessment/Plan (1) Acute kidney injury superimposed on CKD: Plan: Patient sustained SHIRA on CKD during last admission from amikacin induced ATN. Patient started on dialysis on January 28. So far there has been no recovery of kidney function. Creatinine continues to rise between hemodialysis session. Patient currently goes to [facility] on Sunday for hemodialysis. Last hemodialysis was Sunday. Current hemodialysis access right IJ tunnel catheter (2) Metabolic acidosis: Plan: Likely from SHIRA on CKD and bicarb use in GI tract. Serum bicarb this morning 18.5. Patient being dialyzed with 35 bicarb dialysate (3) Anemia: Plan: Patient presented with hemoglobin of 6.8 deciliter. Patient has been having frequent dark stool diarrhea BM as per the patient. Patient received 1 unit of RBCs at admission. GI is following the patient. Currently Eliquis is on hold (4) Hypotension: Plan: Patient has a chronic hypotension likely from low ejection fraction. Worsening blood pressure might be from fluid loss in GI tract. Current ultrafiltration is2 L to bring the patient's weight to EDW (5) Diarrhea: Plan: Patient has been having diarrhea for the last 5 days with frequent BM. C. difficile is negative Plan * No need for hemodialysis session today. Next hemodialysis and should be tomorrow * Will start the patient on midodrine 10 mg p.o. thrice weekly with hemodialysis session to help ultrafiltration * Continue same dose of carvedilol, hydralazine and isosorbide dinitrate. Will continue to monitor blood pressure and adjust medications as needed * No plan for intervention per GI.. Continue H&H monitor and RBC transfusion as directed by GI/hospitalist service * Iron saturation is high at 91%. Folate level in the lower normal level. I will start the patient folic acid 1 mg p.o. daily * Patient is on ertapenem and Zyvox for lower extremity wound infection. Will defer dosing to inpatient pharmacy * Check renal function panel thrice weekly before dialysis to adjust order as needed. Will continue to monitor for kidney function recovery Renal team will continue to follow. Call if any question or concern Documented By: Lia Law MD 02/21/24 1101 Signed By: <Electronically signed by Lia Law MD> 02/21/24 [address] [facility] Work Phone: 1(780) 759-358904-03-2024 Progress note Author Butch Rodney [facility] February 20, 2024 7:06pm Note Date/Time February 20, 2024 6:37 pm [facility] [address] [place] [address] Hospitalist Progress Note Signed Patient: Adwoa Porter MR#: [id number] : 1955 Acct:[id number] Age/Sex: 68 / M Adm Date: 4 Loc: Room: [address] [place] [address] Type: ADM IN Attending Dr: Butch Rodney MD Copies to: ~ Date of Service: 02/20/2024 Subjective Subjective Narrative: 68M with PMH of HTN, DM, HLD, CAD, CKD Stage III with recent SHIRA required HD, COPD, PAF (on Eliquis), HFrEF, CM (EF 15% s/p AICD), Anemia, PAD, Cervical spinal stenosis, ISAK, Diabetic neuropathy, diabetic Foot ulcers, decubitus coccyx ulcer, hypothyroidism who presented with abnormal lab form SNF significant for worsening renal function and anemia and admitted for the evaluation and treatment of suspected GI bleeding Assessment And Plan Possible GI Bleed Possible Acute Anemia of blood loss Chronic anemia of CKD Hg 7.5 today if remain less than 8 will transfuse another units The patient p/w abnormal Hemoglobin down to ~ 6 (last Hg around 7.5 two weeks ago). at admission, he is hemodynamically stable, No overt bleeding , Platelet > 50K. he is on anticoagulant with Eliquis for Afib He was found with Positive Occult Blood He was transfused one unit of blood with improvement of his HG TIBC 196, Iron saturation 91%, Ferritin 309, Reticulocyte count not elevated resume Eliquis and ASA Blood product transfusions as needed (goal of maintaining the Hg >= 8) Acid suppression with PPI IV: Protonix BID IV H&H in am GI recommended no further endoscopic evaluation at this time. Recent cellulitis and osteomyelitis of the Left foot afebrile, no leukocytosis Continue outpatient Abx (Linezolid PO and Invanz IV) Wound care SHIRA on CKD currently on HD the patient p/w creatinine of 4.6 Hold diuretics No hyperkalemia or indication of urgent dialysis Treatment of CKD complications Nephrology consult Diarrhea - improved Volume depletion The patient presents with four days of diarrhea. his blood pressure was low normal in the ED. he is afebrile and hemodynamically stable, no leukocytosis He is currently no Abx Stool Lactoferrin positive C. Diff negative Christopher hydration was given DM blood sugars were reviewed sliding scale insulin and accuchecks. basal insulin hypoglycemia protocol LINTERVAL HPI: As Above, Pt resting in bed. feeling better. Denies any chest pain, SOB, no diarrhea Chronic diseases: Unless mentioned Above, Essential home medications have been continued. DVT Px: Addressed Disposition: To be determined Plan of care Discussed with: the medical team, the patient L Exam Physical Exam Vital Signs: Temp Pulse Resp BP Pulse Ox O2 Del Method O2 Flow Rate 36.6 C 86 18 100/69 95 Room Air 2 02/20/24 16:38 02/20/24 16:38 02/20/24 16:38 02/20/24 16:38 02/20/24 16:38 02/20/24 16:38 02/20/24 08:00 Narrative: GEN: Pleasant, Cooperative, Not in acute distress. LUNGS: b/l basilar crackles, normal respiratory effort. CV: S1S2 nl, ? M/R/G ABD: Soft, ND, NT, + BS, ?CVA tenderness, ? HSM EXT: Edema in LE / UE bilaterally, wound dressed in the LE no calf muscle tenderness. NEURO: weakness in the LE ? FND PSYCH: nl affect, AOx3. Objective Lab Results 02/20/24 05:50 02/20/24 05:50 Microbiology Results Microbiology 02/19/24 21:30 Stool Stool Lactoferrin - Final Meds Allergies and Active Meds Allergies LUPIS Inhibitors Allergy (Unknown, Verified 02/19/24 11:23) Cough Active Meds: Active Medications Generic Name Dose Route Start Last Admin Trade Name Freq PRN Reason Stop Dose Admin Hydrocodone Bitart/Acetaminophen 1 tab 02/19/24 17:35 02/20/24 05:50 Hydrocodone/Acetaminophen 5-325 Mg Tablet PO 1 tab Q8HR PRN Administration pain Albuterol 2.5 mg 02/19/24 17:35 Albuterol Neb 2.5 Mg/3 Ml Vial.Neb INHALATION 02/18/25 17:34 Q4H PRN breathing Albuterol 2 puff 02/19/24 17:35 Albuterol Hfa 60 Puff/8 Gram Inhaler INHALATION 02/18/25 17:34 Q4H PRN breathing Atorvastatin Calcium 80 mg 02/20/24 09:00 02/20/24 08:24 Atorvastatin 80 Mg Tablet PO 02/19/25 08:59 80 mg DAILY RACHANA Administration Budesonide/Formoterol Fumarate 2 puff 02/19/24 21:00 02/20/24 09:36 Budesonide/Formoterol 160-4.5 Mcg 60 Puff/6 Gm Hfa.Aer.Ad INHALATION 02/18/25 20:59 Not Given BID RACHANA Carvedilol 12.5 mg 02/19/24 21:00 02/20/24 08:25 Carvedilol 12.5 Mg Tablet PO 02/18/25 20:59 Not Given BID RACHANA Darbepoetin Baljinder 40 mcg 02/20/24 09:00 02/20/24 10:30 Darbepoetin Baljinder In Polysorbat 40 Mcg/Ml Vial IV-PUSH 02/19/25 08:59 40 mcg WE RACHANA Administration Protocol Dextrose 0 gm 02/20/24 00:08 Dextrose 50% In Water 25 Gm/50 Ml Syringe IV-PUSH 02/19/25 00:07 PRN PRN Hypoglycemia Gabapentin 200 mg 02/19/24 21:00 02/20/24 08:24 Gabapentin 100 Mg Capsule PO 02/18/25 20:59 200 mg BID RACHANA Administration Glucose 0 gm 02/20/24 00:08 Dextrose 40% Gel 15 Gm Tube PO 02/19/25 00:07 PRN PRN Hypoglycemia Heparin Sodium (Porcine) 3,800 unit 02/20/24 10:35 02/20/24 11:01 Heparin 10,000 Unit/10 Ml Vial IV 02/19/25 10:34 3,800 unit PRN PRN Administration Dialysis Hydralazine HCl 25 mg 02/20/24 21:00 Hydralazine 25 Mg Tablet PO 02/19/25 20:59 BID RACHANA Ertapenem 0.5 gm/ Sodium 100 mls @ 200 mls/hr 02/20/24 14:00 02/20/24 13:14 Chloride IV 02/19/25 13:59 200 mls/hr Q24H RACHANA Administration Sodium Chloride 500 mls @ 20 mls/hr 02/20/24 00:12 0.9 % Sodium Chloride IV 02/21/24 00:11 PROTOCOL PRN BLOOD TRANSFUSION Sodium Chloride 1,000 mls @ 0 mls/hr 02/20/24 08:47 02/20/24 10:35 0.9% Sodium Chloride 1,000 Ml MISCELLANE 02/19/25 08:46 Infused .Q0M PRN Infusion Dialysis As Directed Insulin Aspart 0 units 02/20/24 08:00 02/20/24 16:40 Insulin Aspart 300 Units/3 Ml Insuln.Pen SUBCUT 02/19/25 07:59 Not Given TID.WM.HS [facility] Protocol Insulin Glargine 8 units 02/20/24 09:00 02/20/24 08:26 Insulin Glargine 300 Units/3 Ml Insuln.Pen SUBCUT 02/19/25 08:59 8 units QAM [facility] Administration Isosorbide Dinitrate 20 mg 02/19/24 21:00 02/20/24 09:37 Isosorbide Dinitrate 20 Mg Tablet PO 02/18/25 20:59 Not Given BID RACHANA Levothyroxine Sodium 50 mcg 02/20/24 06:30 02/20/24 05:50 Levothyroxine 50 Mcg Tablet PO 02/19/25 06:29 50 mcg DAILY@0630 RACHANA Administration Linezolid 600 mg 02/20/24 09:00 02/20/24 08:24 Linezolid 600 Mg Tablet PO 600 mg BID RACHANA Administration Midodrine 10 mg 02/20/24 09:18 02/20/24 09:53 Midodrine 5 Mg Tablet PO 02/19/25 09:17 10 mg DAILY PRN Administration dialysis Morphine Sulfate 1 mg 02/19/24 17:37 Morphine Sulfate 2 Mg/Ml Vial IV-PUSH Q4H PRN Pain Scale 7 - 10 Nitroglycerin 0.4 mg 02/19/24 17:35 Nitroglycerin 0.4 Mg Tab.Subl SUBLINGUAL 02/18/25 17:34 Q5MIN.X3 PRN Chest Pain Nystatin 1 applic 02/19/24 22:00 02/20/24 13:11 Nystatin 100,000 Unit/Gram Powder 15 Gm Bottle TOPICAL 02/18/25 21:59 1 applic TID RACHANA Administration Pantoprazole Sodium 40 mg 02/19/24 21:00 02/20/24 08:24 Pantoprazole 40 Mg Vial IV-PUSH 02/18/25 20:59 40 mg BID RACHANA Administration Potassium Chloride 40 meq 02/19/24 17:37 Potassium Chloride Er 20 Meq Tab.Er.Prt PO 02/18/25 17:36 DAILY PRN Hypokalemia Sodium Chloride 0 ml 02/19/24 11:03 02/19/24 22:06 Sodium Chloride 0.9 % 10 Ml Syringe IV-PUSH 02/18/25 11:02 10 ml PRN PRN Administration Flush Sodium Chloride 10 ml 02/19/24 11:57 02/19/24 12:24 Sodium Chloride 0.9 % 10 Ml Syringe IV-PUSH 02/18/25 11:56 10 ml PRN PRN Administration Flush Sodium Chloride 10 ml 02/19/24 17:37 02/20/24 08:24 Sodium Chloride 0.9 % 10 Ml Vial.Pf INJECTION 02/18/25 17:36 10 ml PRN PRN Administration Dilution Sodium Chloride 10 ml 02/19/24 17:37 Sodium Chloride 0.9 % 10 Ml Syringe IV-PUSH 02/18/25 17:36 PRN PRN Flush Sodium Chloride 0 ml 02/20/24 08:47 02/20/24 10:31 Sodium Chloride 0.9 % 10 Ml Syringe IV-PUSH 02/19/25 08:46 40 ml PRN PRN Administration Flush Vitamin A/Vitamin D 1 applic 02/19/24 22:00 02/20/24 13:11 Vitamin A & D Oint 113 Gm Tube TOPICAL 02/18/25 21:59 1 applic TID RACHANA Administration A&P - Hospitalist Assessment/Plan (1) COPD (chronic obstructive pulmonary disease): (2) Anemia: (3) GI bleed: Plan Documented By: Butch Rodney MD 02/20/241831 Signed By: <Electronically signed by Butch Rodney MD> 02/20/24 [address] [facility] Work Phone: 1(242) 240-966304-03-2024 Consult note Author [facility] February 20, 2024 4:20pm Note Date/Time February 20, 2024 8:35 am [facility] [address] [place] [address] Gastroenterology Consult Note Signed Patient: Adwoa Porter MR#: [id number] : 1955 Acct:[id number] Age/Sex: 68 / M Adm Date: 4 Loc: Room: [address] [place] [address] Type: ADM IN Attending Dr: Butch Rodney MD Copies to: MD Butch Barnes MD Thomas R Conley, DO~ HPI Data of Consult Date of Consultation: 02/20/24 Requesting Physician: Butch Rodney MD Consult Narrative History of present illness: Mr. Porter is a 68 year old male who was admitted with anemia. The patient has severe cardiopulmonary disease, ESRD requiring IHD. Chronic left diabetic foot ulcers with cellulitis and osteomyelitis requiring prolonged antibiotic therapy. Per chart review the patient has been experiencing some diarrhea but the patient denies this to me today. He denies any blood in the stool. Last EGD and colonoscopy done about 5 years ago for diarrhea, anemia and Hemoccult positive stools found patchy antral gastritis and a small benign polyp. cc:: CC: Butch Rodney MD Review of Systems Constitutional Constitutional: Denies poor appetite and Denies weight loss Eyes Eyes: Denies change in vision and Denies eye discharge ENT Ears, Nose, Mouth, and Throat: Denies nasal discharge, Denies sore throat and Denies vertigo Cardiovascular Cardiovascular: Denies chest pain and Denies dyspnea on exertion Respiratory Respiratory: Denies chest congestion, Denies cough and Denies dyspnea on exertion Gastrointestinal Gastrointestinal: Reports as per HPI Musculoskeletal Musculoskeletal: Denies arthralgias, Denies muscle weakness and Denies numbness Integumentary/Breasts Skin/Breast: Denies change in pigmentation and Denies rash Neurologic Neurologic: Denies numbness and Denies vertigo Psychiatric Psychiatric: Denies anxiety and Denies depression Hematologic/Lymphatic Hematologic/Lymphatic: Denies easy bruising and Denies lymphadenopathy [facility] Medical History (Updated 02/20/24 @ 12:01 by Lia Law MD) ISAK on CPAP Unspecified inflammatory spondylopathy, lumbar region Vitamin D deficiency Type 2 diabetes mellitus [...] of appendectomy H/O cardiac catheterization Family History Brother Legacy FamHx Relation: Brother(s) Cancer Legacy FamHx Relation: Brother(s); Legacy FamHx Problem: Diagnosed with Cancer Father Mother Diabetes Hypertension Heart disease Other CAD (coronary artery disease) Social History Smoking Status: Former smoker Tobacco Type: cigarettes Substance Use Type: None Social History Comments: lives in a trailor - with Promise (friend) Meds Medications and Allergies Allergies LUPIS Inhibitors Allergy (Unknown, Verified 02/19/24 11:23) Cough Home Medications albuterol sulfate 2.5 mg/3 mL (0.083 %) solution for nebulization 2.5 mg inhalation Q4H PRN breathing 04/10/22 [History Confirmed 02/19/24] albuterol sulfate 90 mcg/actuation aerosol inhaler 2 puff inhalation Q4H PRN breathing 04/10/22 [History Confirmed 02/19/24] aspirin 81 mg tablet,delayed release 81 mg PO DAILY 04/10/22 [History Confirmed 02/19/24] atorvastatin 80 mg tablet 80 mg PO DAILY 04/10/22 [History Confirmed 02/19/24] budesonide-formoterol HFA 160 mcg-4.5 mcg/actuation aerosol inhaler (Symbicort) 2 puff inhalation BID 04/10/22 [History Confirmed 02/19/24] hydralazine 50 mg tablet 50 mg PO BID 04/10/22 [History Confirmed 02/19/24] isosorbide dinitrate 20 mg tablet 20 mg PO BID 04/10/22 [History Confirmed 02/19/24] nitroglycerin 0.4 mg sublingual tablet (Nitrostat) 0.4 mg sublingual Q5MIN.X3 PRN Chest Pain 04/10/22 [History Confirmed 02/19/24] cyanocobalamin (vitamin B-12) 1,000 mcg tablet (Vitamin B-12) 1,000 mcg PO DAILY#30 tabs 06/06/22 [Rx Confirmed 02/19/24] levothyroxine 50 mcg tablet 50 mcg PO DAILY 01/29/24 [History Confirmed 02/19/24] Ertapenem [INVanz] 0.5 gm 200 mls/hr IV Q24H 02/05/24 [Rx Confirmed 02/19/24] apixaban 2.5 mg tablet (Eliquis) 2.5 mg PO BID #0 tabs 02/05/24 [Rx Confirmed 02/19/24] carvedilol 25 mg tablet 12.5 mg (1/2 x 25 mg) PO BID #60 tabs 02/05/24 [Rx Confirmed 02/19/24] insulin glargine 100 unit/mL (3 mL) subcutaneous pen (Basaglar KwikPen U-100 Insulin) 8 unit (0.08 mL) subcut QAM #30 mL 02/05/24 [Rx Confirmed 02/19/24] linezolid 600 mg tablet 600 mg PO BID 5 weeks #70 tabs 02/05/24 [Rx Confirmed 02/19/24] nystatin 100,000 unit/gram topical powder (Nystop) 1 applic topical QID #0 grams02/05/24 [Rx Confirmed 02/19/24] bumetanide 2 mg tablet 2 mg PO BID 02/19/24 [History Confirmed 02/19/24] collagenase clostridium histo. 250 unit/gram topical ointment (Santyl) 1 applic topical DAILY 02/19/24 [History Confirmed 02/19/24] gabapentin 100 mg capsule 200 mg PO BID 02/19/24 [History Confirmed 02/19/24] heparin (porcine) 10 unit/mL in 0.9 % sodium chloride intravenous kit 10 unit IVDAILY 02/19/24 [History Confirmed 02/19/24] hydrocodone 5 mg-acetaminophen 325 mg tablet 1 tab PO Q8HR PRN pain 02/19/24 [History Confirmed 02/19/24] insulin aspart U-100 100 unit/mL (3 mL) subcutaneous pen (Novolog FlexPen U-100 Insulin aspart) 1 sliding scale dose subcut TID.WM.HS 02/19/24 [History Confirmed 02/19/24] omeprazole 20 mg capsule,delayed release 20 mg PO DAILY 02/19/24 [History Confirmed 02/19/24] Exam Physical Exam Vital Signs: Temp Pulse Resp BP Pulse Ox O2 Del Method O2 Flow Rate 97.5 F L 86 18 114/71 98 Room Air 2 02/20/24 07:34 02/20/24 07:34 02/20/24 07:34 02/20/24 07:34 02/20/24 07:34 02/20/24 07:34 02/19/24 17:04 Const General: no acute distress and well developed HEENT Head: normocephalic and atraumatic Mouth: moist mucous membranes Eyes Sclera: sclerae normal (no scleral icterus) EOM: EOM intact bilaterally Neck Other: trachea midline Resp Effort & Inspection: normal respiratory effort and able to speak in complete sentences GI Inspection: normal to inspection and non-distended Palpation: soft and nontender Skin General: turgor normal and no jaundice Neuro General: patient alert and patient awake Psych Appearance: grossly normal Mental Status: mental status grossly normal Results - Gastroenterology Labs Labs: Laboratory Results - last 24 hr 02/19/24 02/19/24 02/19/24 11:09 11:09 11:09 Corrected WBC 10.4 Uncorrected WBC Count 10.4 RBC 2.54 L Hgb 6.8 L Hct 20.9 L MCV 82.1 L MCH 26.7 L MCHC 32.6 RDW 17.6 H Plt Count 118 L MPV 8.6 Neut % (Auto) 84.0 Lymph % (Auto) 11.1 [place] % (Auto) 2.7 Eos % (Auto) 1.6 Baso % (Auto) 0.6 Nucleat RBC Rel Count 0.1 Neut # (Auto) 8.8 H Lymph # (Auto) 1.2 [place] # (Auto) 0.3 Eos # (Auto) 0.2 Baso # (Auto) 0.1 Monocyte Dist Width 22.75 H Absolute Retic 0.018 L Percent Retic 0.7 PHA Creatinine Clear 17.59 Sodium 133 L Potassium 4.6 Chloride 97 L Carbon Dioxide 21.2 Anion Gap 19.4 H BUN 66 H Creatinine 4.66 H Est GFR (CKD-EPI) 12.851 Glucose 170 H POC Glucose POC Glucose Comment Calcium 7.1 L Magnesium Iron 179 Cancelled TIBC 196 L Cancelled Iron Saturation 91.3 H Transferrin Ferritin Total Bilirubin AST ALT Alkaline Phosphatase Total Protein Albumin Globulin Albumin/Globulin Ratio C. difficile Tox B Gene Blood Type Blood Type Recheck Antibody Screen Crossmatch ([facility]) 02/19/24 02/19/24 02/19/24 11:09 11:09 11:09 Corrected WBC Uncorrected WBC Count RBC Hgb Hct MCV MCH MCHC RDW Plt Count MPV Neut % (Auto) Lymph % (Auto) [place] % (Auto) Eos % (Auto) Baso % (Auto) Nucleat RBC Rel Count Neut # (Auto) Lymph # (Auto) [place] # (Auto) Eos # (Auto) Baso # (Auto) Monocyte Dist Width Absolute Retic Percent Retic PHA Creatinine Clear Sodium Potassium Chloride Carbon Dioxide Anion Gap BUN Creatinine Est GFR (CKD-EPI) Glucose POC Glucose POC Glucose Comment Calcium Magnesium Iron TIBC Iron Saturation Cancelled Transferrin 140 L Cancelled Ferritin 309.4 Cancelled Total Bilirubin 0.5 AST 10 L ALT 6 L Alkaline Phosphatase 111 H Total Protein 5.9 L Albumin 2.8 L Globulin 3.1 Albumin/Globulin Ratio 0.9 C. difficile Tox B Gene Blood Type A Positive Blood Type Recheck Antibody Screen Negative Crossmatch ([facility]) See Detail 02/19/24 02/19/24 02/19/24 12:26 20:36 21:30 Corrected WBC Uncorrected WBC Count RBC Hgb Hct MCV MCH MCHC RDW Plt Count MPV Neut % (Auto) Lymph % (Auto) [place] % (Auto) Eos % (Auto) Baso % (Auto) Nucleat RBC Rel Count Neut # (Auto) Lymph # (Auto) [place] # (Auto) Eos # (Auto) Baso # (Auto) Monocyte Dist Width Absolute Retic Percent Retic PHA Creatinine Clear Sodium Potassium Chloride Carbon Dioxide Anion Gap BUN Creatinine Est GFR (CKD-EPI) Glucose POC Glucose 177 POC Glucose Comment Calcium Magnesium Iron TIBC Iron Saturation Transferrin Ferritin Total Bilirubin AST ALT Alkaline Phosphatase Total Protein Albumin Globulin Albumin/Globulin Ratio C. difficile Tox B Gene Negative Blood Type Blood Type Recheck A Positive Antibody Screen Crossmatch ([facility]) 02/20/24 02/20/24 05:50 06:39 Corrected WBC 11.9 H Uncorrected WBC Count RBC 2.75 L Hgb 7.6 L Hct 22.9 L MCV 83.3 L MCH 27.5 MCHC 33.0 RDW 18.1 H Plt Count 129 L MPV 8.6 Neut % (Auto) Lymph % (Auto) [place] % (Auto) Eos % (Auto) Baso % (Auto) Nucleat RBC Rel Count Neut # (Auto) Lymph # (Auto) [place] # (Auto) Eos # (Auto) Baso # (Auto) Monocyte Dist Width Absolute Retic Percent Retic PHA Creatinine Clear 15.60 Sodium 131 L Potassium 5.0 Chloride 96 L Carbon Dioxide 18.5 L Anion Gap 21.5 H BUN 82 H Creatinine 5.37 H D Est GFR (CKD-EPI) 10.840 Glucose 114 H POC Glucose 149 POC Glucose Comment Glu2: cleaned meter Calcium 7.2 L Magnesium 1.9 Iron TIBC Iron Saturation Transferrin Ferritin Total Bilirubin AST ALT Alkaline Phosphatase Total Protein Albumin Globulin Albumin/Globulin Ratio C. difficile Tox B Gene Blood Type Blood Type Recheck Antibody Screen Crossmatch ([facility]) A&P - Gastroenterology Assessment/Plan (1) Diarrhea: (2) Anemia: Plan His iron studies are consistent with anemia of chronic disease, not chronic blood loss. He has had declining renal function and this likely is playing an increased role in his anemia additionally he has been on dialysis which increases turnover of red cells. His reticulocyte count is extremely hypoproliferative suggesting an inadequate bone marrow response. He does not appear to have any overt GI bleeding and had undergone endoscopic evaluation in the past for Hemoccult positive stools and anemia which was largely unremarkable. He does not need further endoscopic evaluation at this time. Given his severe cardiopulmonary risk factors endoscopy should only be reserved in this individual for life-threatening overt GI bleeding. I would recommend continued prophylaxis with PPI while on anticoagulation given his comorbidities. C. difficile was negative, diarrhea is likely functional. Thank you for this consult, little further to add from a GI standpoint, I will sign off at this time. Documented By: Sebastian Granger MD 02/20/24 5760 Signed By: <Electronically signed by Sebastian Granger MD> 02/20/24 6313 [facility] Work Phone: 1(184) 249-886004-03-2024 Consult note Author Lia Law [facility] February 20, 2024 12:08pm Note Date/Time February 20, 2024 12:0 8pm [facility] [address] [place] [address] Nephrology Consult Note Signed Patient: Adwoa Porter MR#: [id number] : 1955 Acct:[id number] Age/Sex: 68 / M Adm Date: 4 Loc: Room: [address] [place] [address] Type: ADM IN Attending Dr: Butch Rodney MD Copies to: MD Butch Cortez MD Thomas R Conley, DO~ Providers Consult Date: 02/20/24 Requesting Provider: Butch Rodney MD Primary Care Provider: Vinnie Stewart DO HPI Reason for Consult: SHIRA on CKD on hemodialysis History of Present Illness: This is a 68-year-old male patient with a past medical history of hypertension, diabetes, heart failure with reduced ejection fraction (last ejection fraction 15%), coronary disease, acute kidney injury on chronic kidney disease in the last admission from amikacin induced ATN on Sunday hemodialysisschedule at [facility]. Recent lower extremity wound infection and currently on Invanz and Zyvox as outpatient. Paroxysmal A-fib, COPD. Status post AICD placement, anemia, hypothyroidism. Patient currently residing at [facility]. Patient was brought into the hospital for worsening anemia and suspected GI bleed. Patient has been having frequent diarrhea bowel movement for the last 5 days. C. difficile toxin is negative at admission. Lab at admission showed hemoglobin6.9 g deciliter. Patient was given 1 unit of RBCs. Repeated labs this morning reviewed hemoglobin up to 7.6 mg deciliter. There has been no recovery of kidney function. Lab from this morning revealed potassium 5.3 mg deciliter and BUN 82, serum bicarb 18.5, potassium 5.0 and sodium 131. GI is in consult Reviewed the patient's home medication he is on hydralazine, isosorbide dinitrate, vitamin B12, Eliquis, Coreg, Bumex Hemodialysis and was arranged for today as per his regular schedule. Noted low blood pressure this morning. Ultrafiltration is set at 2 L. Patient was given 1 dose of midodrine 10 mg this morning Continues to have generalized weakness. Currently on room air. Heart rate is 85 and blood pressure 90/50 Review of Systems Review of Systems All other systems reviewed & are negative unless noted below or in HPI [facility] Medical History (Updated 02/20/24 @ 12:01 by Lia Law MD) ISAK on CPAP Unspecified inflammatory spondylopathy, lumbar region Vitamin D deficiency Type 2 diabetes mellitus [...] of appendectomy H/O cardiac catheterization Family History Brother Legacy FamHx Relation: Brother(s) Cancer Legacy FamHx Relation: Brother(s); Legacy FamHx Problem: Diagnosed with Cancer Father Mother Diabetes Hypertension Heart disease Other CAD (coronary artery disease) Social History Smoking Status: Former smoker Tobacco Type: cigarettes Substance Use Type: None Social History Comments: lives in a trailor - with Promise (friend) Meds Medications & Allergies Allergies LUPIS Inhibitors Allergy (Unknown, Verified 02/19/24 11:23) Cough Home Medications albuterol sulfate 2.5 mg/3 mL (0.083 %) solution for nebulization 2.5 mg inhalation Q4H PRN breathing 04/10/22 [History Confirmed 02/19/24] albuterol sulfate 90 mcg/actuation aerosol inhaler 2 puff inhalation Q4H PRN breathing 04/10/22 [History Confirmed 02/19/24] aspirin 81 mg tablet,delayed release 81 mg PO DAILY 04/10/22 [History Confirmed 02/19/24] atorvastatin 80 mg tablet 80 mg PO DAILY 04/10/22 [History Confirmed 02/19/24] budesonide-formoterol HFA 160 mcg-4.5 mcg/actuation aerosol inhaler (Symbicort) 2 puff inhalation BID 04/10/22 [History Confirmed 02/19/24] hydralazine 50 mg tablet 50 mg PO BID 04/10/22 [History Confirmed 02/19/24] isosorbide dinitrate 20 mg tablet 20 mg PO BID 04/10/22 [History Confirmed 02/19/24] nitroglycerin 0.4 mg sublingual tablet (Nitrostat) 0.4 mg sublingual Q5MIN.X3 PRN Chest Pain 04/10/22 [History Confirmed 02/19/24] cyanocobalamin (vitamin B-12) 1,000 mcg tablet (Vitamin B-12) 1,000 mcg PO DAILY#30 tabs 06/06/22 [Rx Confirmed 02/19/24] levothyroxine 50 mcg tablet 50 mcg PO DAILY 01/29/24 [History Confirmed 02/19/24] Ertapenem [INVanz] 0.5 gm 200 mls/hr IV Q24H 02/05/24 [Rx Confirmed 02/19/24] apixaban 2.5 mg tablet (Eliquis) 2.5 mg PO BID #0 tabs 02/05/24 [Rx Confirmed 02/19/24] carvedilol 25 mg tablet 12.5 mg (1/2 x 25 mg) PO BID #60 tabs 02/05/24 [Rx Confirmed 02/19/24] insulin glargine 100 unit/mL (3 mL) subcutaneous pen (Basaglar KwikPen U-100 Insulin) 8 unit (0.08 mL) subcut QAM #30 mL 02/05/24 [Rx Confirmed 02/19/24] linezolid 600 mg tablet 600 mg PO BID 5 weeks #70 tabs 02/05/24 [Rx Confirmed 02/19/24] nystatin 100,000 unit/gram topical powder (Nystop) 1 applic topical QID #0 grams02/05/24 [Rx Confirmed 02/19/24] bumetanide 2 mg tablet 2 mg PO BID 02/19/24 [History Confirmed 02/19/24] collagenase clostridium histo. 250 unit/gram topical ointment (Santyl) 1 applic topical DAILY 02/19/24 [History Confirmed 02/19/24] gabapentin 100 mg capsule 200 mg PO BID 02/19/24 [History Confirmed 02/19/24] heparin (porcine) 10 unit/mL in 0.9 % sodium chloride intravenous kit 10 unit IVDAILY 02/19/24 [History Confirmed 02/19/24] hydrocodone 5 mg-acetaminophen 325 mg tablet 1 tab PO Q8HR PRN pain 02/19/24 [History Confirmed 02/19/24] insulin aspart U-100 100 unit/mL (3 mL) subcutaneous pen (Novolog FlexPen U-100 Insulin aspart) 1 sliding scale dose subcut TID.WM.HS 02/19/24 [History Confirmed 02/19/24] omeprazole 20 mg capsule,delayed release 20 mg PO DAILY 02/19/24 [History Confirmed 02/19/24] Active Medications: Active Medications Hydrocodone Bitart/Acetaminophen (Hydrocodone/Acetaminophen 5-325 Mg Tablet) 1 tab PO Q8HR PRN PRN Reason: pain Last Admin: 02/20/24 05:50 Dose: 1 tab Albuterol (Albuterol Neb 2.5 Mg/3 Ml Vial.Neb) 2.5 mg INHALATION Q4H PRN PRN Reason: breathing Stop: 02/18/25 17:34 Albuterol (Albuterol Hfa 60 Puff/8 Gram Inhaler) 2 puff INHALATION Q4H PRN PRN Reason: breathing Stop: 02/18/25 17:34 Atorvastatin Calcium (Atorvastatin 80 Mg Tablet) 80 mg PO DAILY [facility] Stop: 02/19/25 08:59 Last Admin: 02/20/24 08:24 Dose: 80 mg Budesonide/Formoterol Fumarate (Budesonide/Formoterol 160-4.5 Mcg 60 Puff/6 Gm Hfa.Aer.Ad) 2 puff INHALATION BID [facility] Stop: 02/18/25 20:59 Last Admin: 02/20/24 09:36 Dose: Not Given Carvedilol (Carvedilol 12.5 Mg Tablet) 12.5 mg PO BID [facility] Stop: 02/18/25 20:59 Last Admin: 02/20/24 08:25 Dose: Not Given Darbepoetin Baljinder (Darbepoetin Baljinder In Polysorbat 40 Mcg/Ml Vial) 40 mcg IV- PUSHWE [facility]; Protocol Stop: 02/19/25 08:59 Last Admin: 02/20/24 10:30 Dose: 40 mcg Dextrose (Dextrose 50% In Water 25 Gm/50 Ml Syringe) 0 gm IV-PUSH PRN PRN PRN Reason: Hypoglycemia Stop: 02/19/25 00:07 Gabapentin (Gabapentin 100 Mg Capsule) 200 mg PO BID [facility] Stop: 02/18/25 20:59 Last Admin: 02/20/24 08:24 Dose: 200 mg Glucose (Dextrose 40% Gel 15 Gm Tube) 0 gm PO PRN PRN PRN Reason: Hypoglycemia Stop: 02/19/25 00:07 Heparin Sodium (Porcine) (Heparin 10,000 Unit/10 Ml Vial) 3,800 unit IV PRN PRN PRN Reason: Dialysis Stop: 02/19/25 10:34 Last Admin: 02/20/24 11:01 Dose: 3,800 unit Hydralazine HCl (Hydralazine 50 Mg Tablet) 50 mg PO BID [facility] Stop: 02/18/25 20:59 Last Admin: 02/20/24 08:25 Dose: Not Given Ertapenem 0.5 gm/ Sodium (Chloride) 100 mls @ 200 mls/hr IV Q24H [facility] Stop: 02/19/25 13:59 Sodium Chloride (0.9 % Sodium Chloride) 500 mls @ 20 mls/hr IV PROTOCOL PRN PRN Reason: BLOOD TRANSFUSION Stop: 02/21/24 00:11 Sodium Chloride (0.9% Sodium Chloride 1,000 Ml) 1,000 mls @ 0 mls/hr MISCELLANE.Q0M PRN PRN Reason: Dialysis Stop: 02/19/25 08:46 Last Infusion: 02/20/24 10:35 Dose: Infused Insulin Aspart (Insulin Aspart 300 Units/3 Ml Insuln.Pen) 0 units SUBCUT TID.WM.HS [facility]; Protocol Stop: 02/19/25 07:59 Last Admin: 02/20/24 08:25 Dose: Not Given Insulin Glargine (Insulin Glargine 300 Units/3 Ml Insuln.Pen) 8 units SUBCUT QAM [facility] Stop: 02/19/25 08:59 Last Admin: 02/20/24 08:26 Dose: 8 units Isosorbide Dinitrate (Isosorbide Dinitrate 20 Mg Tablet) 20 mg PO BID [facility] Stop: 02/18/25 20:59 Last Admin: 02/20/24 09:37 Dose: Not Given Levothyroxine Sodium (Levothyroxine 50 Mcg Tablet) 50 mcg PO DAILY@0630 [facility] Stop: 02/19/25 06:29 Last Admin: 02/20/24 05:50 Dose: 50 mcg Linezolid (Linezolid 600 Mg Tablet) 600 mg PO BID [facility] Last Admin: 02/20/24 08:24 Dose: 600 mg Midodrine (Midodrine 5 Mg Tablet) 10 mg PO DAILY PRN PRN Reason: dialysis Stop: 02/19/25 09:17 Last Admin: 02/20/24 09:53 Dose: 10 mg Morphine Sulfate (Morphine Sulfate 2 Mg/Ml Vial) 1 mg IV-PUSH Q4H PRN PRN Reason: Pain Scale 7 - 10 Nitroglycerin (Nitroglycerin 0.4 Mg Tab.Subl) 0.4 mg SUBLINGUAL Q5MIN.X3 PRN PRN Reason: Chest Pain Stop: 02/18/25 17:34 Nystatin (Nystatin 100,000 Unit/Gram Powder 15 Gm Bottle) 1 applic TOPICAL TID [facility] Stop: 02/18/25 21:59 Last Admin: 02/20/24 09:37 Dose: Not Given Pantoprazole Sodium (Pantoprazole 40 Mg Vial) 40 mg IV-PUSH BID [facility] Stop: 02/18/25 20:59 Last Admin: 02/20/24 08:24 Dose: 40 mg Potassium Chloride (Potassium Chloride Er 20 Meq Tab.Er.Prt) 40 meq PO DAILY PRN PRN Reason: Hypokalemia Stop: 02/18/25 17:36 Sodium Chloride (Sodium Chloride 0.9 % 10 Ml Syringe) 0 ml IV-PUSH PRN PRN PRN Reason: Flush Stop: 02/18/25 11:02 Last Admin: 02/19/24 22:06 Dose: 10 ml Sodium Chloride (Sodium Chloride 0.9 % 10 Ml Syringe) 10 ml IV-PUSH PRN PRN PRN Reason: Flush Stop: 02/18/25 11:56 Last Admin: 02/19/24 12:24 Dose: 10 ml Sodium Chloride (Sodium Chloride 0.9 % 10 Ml Vial.Pf) 10 ml INJECTION PRN PRN PRN Reason: Dilution Stop: 02/18/25 17:36 Last Admin: 02/20/24 08:24 Dose: 10 ml Sodium Chloride (Sodium Chloride 0.9 % 10 Ml Syringe) 10 ml IV-PUSH PRN PRN PRN Reason: Flush Stop: 02/18/25 17:36 Sodium Chloride (Sodium Chloride 0.9 % 10 Ml Syringe) 0 ml IV-PUSH PRN PRN PRN Reason: Flush Stop: 02/19/25 08:46 Last Admin: 02/20/24 10:31 Dose: 40 ml Vitamin A/Vitamin D (Vitamin A & D Oint 113 Gm Tube) 1 applic TOPICAL TID [facility]ACHANA Stop: 02/18/25 21:59 Last Admin: 02/20/24 09:37 Dose: Not Given Exam Physical Exam Vital Signs: Temp Pulse Resp BP Pulse Ox O2 Del Method O2 Flow Rate 97.5 F L 85 16 92/53 L 97 Room Air 2 02/20/24 09:15 02/20/24 11:00 02/20/24 09:15 02/20/24 11:00 02/20/24 09:15 02/20/24 09:15 02/19/24 17:04 Narrative: General: No acute distress Head :atraumatic normocephalic Eyes: PERRLA. Neck: no JVD no bruit. Heart: S1-S2. RRR Respiratory: Clear to auscultation. No wheezing. No crackles Abdomen: Soft, positive bowel sounds,no tenderness. Neurology: Awake alert oriented x3. No focal deficits Extremity. No cyanosis. +1 edema of lower extremities Skin: No skin rash Results - Nephrology Labs 02/20/24 05:50 02/20/24 05:50 Labs: 02/19/24 02/19/24 02/19/24 11:09 11:09 11:09 BUN Creatinine Iron Saturation 91.3 H Cancelled Ferritin 309.4 Cancelled 02/20/24 05:50 BUN 82 H Creatinine 5.37 H D Iron Saturation Ferritin Radiology Impressions Impressions - last 24 hours: Impressions Chest X-Ray 02/19/24 14:04 IMPRESSION: NEW RIGHT-SIDED DIALYSIS CATHETER IS IN PLACE SINCE THE PRIOR STUDY. CHF FINDINGS WITH LEFT LOWER LOBE AIRSPACE DISEASE AND SMALL LEFT PLEURAL EFFUSION, UNCHANGED. Impression dictated by: Brennan Salgado Jr., D.O.02/19/2024 2:27 PM Dictation Location: [place] [address] Any impression(s) listed above is documentation that was entered by the reading physician into a diagnostic report(s) for Adwoa Porter. I have reviewed the report(s) and am incorporating any findings in the treatment plan of this patient where applicable. A&P - Nephrology Assessment/Plan (1) Acute kidney injury superimposed on CKD: Plan: Patient sustained SHIRA on CKD during last admission from amikacin induced ATN. Patient started on dialysis on January 28. So far there has been no recovery of kidney function. Creatinine continues to rise between hemodialysis session. Patient currently goes to [facility] on Sunday for hemodialysis. Last hemodialysis was Sunday. Current hemodialysis access right IJ tunnel catheter (2) Metabolic acidosis: Plan: Likely from SHIRA on CKD and bicarb use in GI tract. Serum bicarb this morning 18.5. Patient being dialyzed with 35 bicarb dialysate (3) Anemia: Plan: Patient presented with hemoglobin of 6.8 deciliter. Patient has been having frequent dark stool diarrhea BM as per the patient. Patient received 1 unit of RBCs at admission. GI is following the patient. Currently Eliquis is on hold (4) Hypotension: Plan: Patient has a chronic hypotension likely from low ejection fraction. Worsening blood pressure might be from fluid loss in GI tract. Current ultrafiltration is2 L to bring the patient's weight to EDW (5) Diarrhea: Plan: Patient has been having diarrhea for the last 5 days with frequent BM. C. difficile is negative Plan * Hemodialysis session today with a blood flow rate 350, dialysate flow rate 500. Will reduce ultrafiltration 2 L due to low blood pressure * Patient was given 1 dose of midodrine for low blood pressure to help ultrafiltration. * I will reduce hydralazine to 25 mg twice daily. Continue same dose of carvedilol and isosorbide dinitrate. Continue to monitor blood pressure and adjust medications as needed * GI is following for possible GI bleed and diarrhea. Continue H&H monitor and RBC transfusion as directed by GI/hospitalist service * Iron saturation is high at 91%. Will check folate along with vitamin B12. Patient on vitamin B12 supplement at home * Patient is on ertapenem vans and Zyvox for lower extremity wound infection. Will defer dosing to inpatient pharmacy * Check renal function panel thrice weekly before dialysis to adjust order as needed. Will continue to monitor for kidney function recovery You for allowing me to participate in Mr. Porter's care. Renal team will continue to follow. Call if any question or concern Documented By: Lia Law MD 02/20/24 1156 Signed By: <Electronically signed by Lia Law MD> 02/20/24 1419 [facility] Work Phone: 1(450) 187-476904-03-2024 History and physical note Author Butch Rodney [facility] February 20, 2024 12:43am Note Date/Time February 19, 2024 5:41 pm [facility] [address] [place] [address] Hospitalist H&P Signed Patient: Adwoa Porter MR#: [id number] : 1955 Acct:[id number] Age/Sex: 68 / M Adm Date: 4 Loc: Room: [address] [place] [address] Type: ADM IN Attending Dr: Butch Rodney MD Copies to: MD Vinnie Dixon, DO~ HPI DATE OF EXAMINATION: 02/19/24 HISTORY OF PRESENT ILLNESS: This is a pleasant 68M with PMH of HTN, DM, HLD, CAD, CKD Stage III with recent SHIRA required HD, COPD, PAF (on Eliquis), HFrEF, CM (EF 15% s/p AICD), Anemia, PAD, Cervical spinal stenosis, ISAK, Diabetic neuropathy, diabetic Foot ulcers, decubitus coccyx ulcer, hypothyroidism who presented with abnormal lab form SNF significant for worsening renal function and anemia and admitted for the evaluation and treatment of suspected GI bleeding The patient was discharged from the hospital two weeks ago after receiving treatment for Acute Kidney Injury on Chronic Kidney Disease . This required the insertion of a permanent Right Internal Jugular dialysis catheter and Hemodialysis . The patient also had a Left diabetic foot infection associated with cellulitis and osteomyelitis, which required prolonged Antibiotic therapy.This included a 6-week course of Linezolid PO and Invanz IV. He has reported experiencing diarrhea for the past four days. It is unclear whether he has melena or hematochezia, as he is unsure. He denies experiencing nausea, vomiting, abdominal pain, fever, or chills. ROS: Ten Systems reviewed with the patient, all negative except what stated above Assessment And Plan Possible GI Bleed Possible Acute Anemia of blood loss Chronic anemia of CKD The patient p/w abnormal Hemoglobin down to ~ 6 (last Hg around 7.5 two weeks ago). at admission, he is hemodynamically stable, No overt bleeding , Platelet > 50K. he is on anticoagulant with Eliquis for Afib He was found with Positive Occult Blood Hold : Eliquis and ASA Blood product transfusions as needed (goal of maintaining the Hg >= 8) will giveone unit Acid suppression with PPI IV: Protonix BID IV H&H monitoring TIBC, Iron saturation, Ferritin, Reticulocyte count GI consultation Recent cellulitis and osteomyelitis of the Left foot afebrile, no leukocytosis Continue outpatient Abx (Linezolid PO and Invanz IV) Wound care SHIRA on CKD currently on HD the patient p/w creatinine of 4.6 Hold diuretics No hyperkalemia or indication of urgent dialysis Treatment of CKD complications Nephrology consult Diarrhea Volume depletion The patient presents with four days of diarrhea. his blood pressure was low normal in the ED. he is afebrile and hemodynamically stable, no leukocytosis He is currently no Abx Stool Lactoferrin C. Diff Christopher hydration DM blood sugars were reviewed sliding scale insulin and accuchecks. basal insulin hypoglycemia protocol. ? Chronic diseases:?Unless mentioned Above, Essential home medications have been continued.? DVT Px:?SCD Code Status: FULL, discussed with patient Plan of care Discussed with:?the medical team, the patient [facility] Medical History Unspecified inflammatory spondylopathy, lumbar region Vitamin D deficiency Type 2 diabetes mellitus [...] of appendectomy H/O cardiac catheterization Family History Brother Legacy FamHx Relation: Brother(s) Cancer Legacy FamHx Relation: Brother(s); Legacy FamHx Problem: Diagnosed with Cancer Father Mother Diabetes Hypertension Heart disease Other CAD (coronary artery disease) Social History Smoking Status: Former smoker Tobacco Type: cigarettes Substance Use Type: None Social History Comments: lives in a trailor - with Promise (friend) Meds Medications and Allergies Allergies LUPIS Inhibitors Allergy (Unknown, Verified 02/19/24 11:23) Cough Home Medications albuterol sulfate 2.5 mg/3 mL (0.083 %) solution for nebulization 2.5 mg inhalation Q4H PRN breathing 04/10/22 [History Confirmed 02/19/24] albuterol sulfate 90 mcg/actuation aerosol inhaler 2 puff inhalation Q4H PRN breathing 04/10/22 [History Confirmed 02/19/24] aspirin 81 mg tablet,delayed release 81 mg PO DAILY 04/10/22 [History Confirmed 02/19/24] atorvastatin 80 mg tablet 80 mg PO DAILY 04/10/22 [History Confirmed 02/19/24] budesonide-formoterol HFA 160 mcg-4.5 mcg/actuation aerosol inhaler (Symbicort) 2 puff inhalation BID 04/10/22 [History Confirmed 02/19/24] hydralazine 50 mg tablet 50 mg PO BID 04/10/22 [History Confirmed 02/19/24] isosorbide dinitrate 20 mg tablet 20 mg PO BID 04/10/22 [History Confirmed 02/19/24] nitroglycerin 0.4 mg sublingual tablet (Nitrostat) 0.4 mg sublingual Q5MIN.X3 PRN Chest Pain 04/10/22 [History Confirmed 02/19/24] cyanocobalamin (vitamin B-12) 1,000 mcg tablet (Vitamin B-12) 1,000 mcg PO DAILY#30 tabs 06/06/22 [Rx Confirmed 02/19/24] levothyroxine 50 mcg tablet 50 mcg PO DAILY 01/29/24 [History Confirmed 02/19/24] Ertapenem [INVanz] 0.5 gm 200 mls/hr IV Q24H 02/05/24 [Rx Confirmed 02/19/24] apixaban 2.5 mg tablet (Eliquis) 2.5 mg PO BID #0 tabs 02/05/24 [Rx Confirmed 02/19/24] carvedilol 25 mg tablet 12.5 mg (1/2 x 25 mg) PO BID #60 tabs 02/05/24 [Rx Confirmed 02/19/24] insulin glargine 100 unit/mL (3 mL) subcutaneous pen (Basaglar KwikPen U-100 Insulin) 8 unit (0.08 mL) subcut QAM #30 mL 02/05/24 [Rx Confirmed 02/19/24] linezolid 600 mg tablet 600 mg PO BID 5 weeks #70 tabs 02/05/24 [Rx Confirmed 02/19/24] nystatin 100,000 unit/gram topical powder (Nystop) 1 applic topical QID #0 grams02/05/24 [Rx Confirmed 02/19/24] bumetanide 2 mg tablet 2 mg PO BID 02/19/24 [History Confirmed 02/19/24] collagenase clostridium histo. 250 unit/gram topical ointment (Santyl) 1 applic topical DAILY 02/19/24 [History Confirmed 02/19/24] gabapentin 100 mg capsule 200 mg PO BID 02/19/24 [History Confirmed 02/19/24] heparin (porcine) 10 unit/mL in 0.9 % sodium chloride intravenous kit 10 unit IVDAILY 02/19/24 [History Confirmed 02/19/24] hydrocodone 5 mg-acetaminophen 325 mg tablet 1 tab PO Q8HR PRN pain 02/19/24 [History Confirmed 02/19/24] insulin aspart U-100 100 unit/mL (3 mL) subcutaneous pen (Novolog FlexPen U-100 Insulin aspart) 1 sliding scale dose subcut TID.WM.HS 02/19/24 [History Confirmed 02/19/24] omeprazole 20 mg capsule,delayed release 20 mg PO DAILY 02/19/24 [History Confirmed 02/19/24] Exam Physical Exam Vital Signs: Temp Pulse Resp BP Pulse Ox O2 Del Method O2 Flow Rate 36.3 C L 85 20 102/58 L 100 Nasal Cannula 2 02/19/24 10:46 02/19/24 14:00 02/19/24 14:00 02/19/24 14:00 02/19/24 14:00 02/19/24 17:04 02/19/24 17:04 Narrative: GEN: Pleasant, Cooperative, Not in acute distress. NECK: Supple, ? JVD LUNGS: b/l basilar crackles, normal respiratory effort. CV: S1S2 nl, ? M/R/G ABD: Soft, ND, NT, + BS, ?CVA tenderness, ? HSM MUSCULOSKELETAL: ? joint swelling or erythema SKIN: Normal temperature, turgor and texture. EXT: edema in LE / UE bilaterally, wound dressed in the LE no calf muscle tenderness. NEURO: weakness in the LE ? FND PSYCH: nl affect, AOx3. Results - Hospitalist H&P Lab Results Labs: Laboratory Last Values Corrected WBC 10.4 X10E3/uL (4.1-10.5) 02/19/24 11:09 Uncorrected WBC Count 10.4 x10E3/uL (4.1-10.5) 02/19/24 11:09 RBC 2.54 X10E6/uL (3.90-5.60) L 02/19/24 11:09 Hgb 6.8 g/dL (13.0-17.0) L 02/19/24 11:09 Hct 20.9 % (38.8-50.0) L 02/19/24 11:09 MCV 82.1 fl (83.5-101) L 02/19/24 11:09 MCH 26.7 pg (27.5-35.2) L 02/19/24 11:09 MCHC 32.6 g/dL (32.5-35.6) 02/19/24 11:09 RDW 17.6 % (12.0-14.8) H 02/19/24 11:09 Plt Count 118 x10E3/uL (150-450) L 02/19/24 11:09 MPV 8.6 fl (6.6-10.1) 02/19/24 11:09 Neut % (Auto) 84.0 % (.) 02/19/24 11:09 Lymph % (Auto) 11.1 % (.) 02/19/24 11:09 [place] % (Auto) 2.7 % (.) 02/19/24 11:09 Eos % (Auto) 1.6 % (.) 02/19/24 11:09 Baso % (Auto) 0.6 % (.) 02/19/24 11:09 Nucleat RBC Rel Count 0.1 /100 WBC (0-0.5) 02/19/24 11:09 Neut # (Auto) 8.8 x10E3/uL (1.8-7.7) H 02/19/24 11:09 Lymph # (Auto) 1.2 x10E3/uL (1.00-4.8) 02/19/24 11:09 [place] # (Auto) 0.3 x10E3/uL (0.0-0.8) 02/19/24 11:09 Eos # (Auto) 0.2 x10E3/uL (0.0-0.45) 02/19/24 11:09 Baso # (Auto) 0.1 x10E3/uL (0.0-0.2) 02/19/24 11:09 Monocyte Dist Width 22.75 % (0.00-20.00) H 02/19/24 11:09 PHA Creatinine Clear 17.59 02/19/24 11:09 Sodium 133 mmol/L (136-145) L 02/19/24 11:09 Potassium 4.6 mmol/L (3.5-5.1) 02/19/24 11:09 Chloride 97 mmol/L (98-107) L 02/19/24 11:09 Carbon Dioxide 21.2 mmol/L (21.0-31.0) 02/19/24 11:09 Anion Gap 19.4 mEq/L (6.0-15.0) H 02/19/24 11:09 BUN 66 mg/dL (7-25) H 02/19/24 11:09 Creatinine 4.66 mg/dL (0.70-1.30) H 02/19/24 11:09 Est GFR (CKD-EPI) 12.851 mL/Min 02/19/24 11:09 Glucose 170 mg/dL (70-100) H 02/19/24 11:09 Calcium 7.1 mg/dL (8.6-10.3) L 02/19/24 11:09 Total Bilirubin 0.5 mg/dl (0.3-1.0) 02/19/24 11:09 AST 10 U/L (13-39) L 02/19/24 11:09 ALT 6 U/L (7-52) L 02/19/24 11:09 Alkaline Phosphatase 111 U/L (34-104) H 02/19/24 11:09 Total Protein 5.9 gm/dL (6.4-8.9) L 02/19/24 11:09 Albumin 2.8 gm/dL (3.5-5.7) L 02/19/24 11:09 Globulin 3.1 gm/dL 02/19/24 11:09 Albumin/Globulin Ratio 0.9 02/19/24 11:09 Blood Type A Positive 02/19/24 11:09 Blood Type Recheck A Positive 02/19/24 12:26 Antibody Screen Negative 02/19/24 11:09 Microbiology Results Micro: Microbiology - Results from entire visit 02/19/24 11:06 Stool Stool Occult Blood (MERCEDES) - Final Assessment & Plan Assessment/Plan (1) COPD (chronic obstructive pulmonary disease): (2) Anemia: (3) GI bleed: Plan IP vs OBS Justification Based on differential dx, clinical care plan, and risk of adverse events, if untreated, in my clinical judgement this patient requires an acute care setting as: INPATIENT because of an expectation of an over 2 midnight stay. Estimated length of stay (# of days): 3 Documented By: Butch Rodney MD 02/19/241739 Signed By: <Electronically signed by Butch Rodney MD> 02/20/2442 [facility] Work Phone: 1(238) 987-993803-19-2024 Progress note Author Swathi Burnham [facility] February 05, 2024 3:29pm Note Date/Time February 04, 2024 7:5 9pm [facility] [address] [place] [address] Hospitalist Progress Note Signed Patient: Adwoa Porter MR#: [id number] : 1955 Acct:[id number] Age/Sex: 68 / M Adm Date: 4 Loc: Room: [address] [place] [address] Type: ADM IN Attending Dr: Swathi Burnham [...] 1,000 Ml IV 02/03/25 08:14 100 mls/hr .[id number] RACHANA Administration Insulin Aspart 0 units 01/28/24 22:45 02/04/24 17:13 Insulin Aspart 300 Units/3 Ml Insuln.Pen SUBCUT 01/27/25 22:44 Not Given TID.WM.HS RACHANA Protocol Isosorbide Dinitrate 20 mg 01/29/24 09:00 [...] <Electronically signed by Swathi Burnham MD> 02/05/24 4990 [facility] Work Phone: 1(108) 697-691403-19-2024 Progress note Author Simba Kaufman [facility] February 05, 2024 1:04pm Note Date/Time February 05, 2024 1:0 4pm [facility] EN[facility] [address] [place], [place] [address] Nephrology Progress Note Signed Patient: Adwoa Porter MR#: [id number] : 1955 Acct:[id number] Age/Sex: 68 / M Adm Date: 4 Loc: Room: 5D3530-0 Type: ADM IN Attending Dr: Swathi Burnham MD Copies to: ~ Date of Service: 02/05/2024 Subjective Subjective Narrative: This is 68-year-old male patient with past medical history of systolic heart failure ejection fraction 10 to 15%, CKD stage III baseline creatinine around 1.5 mg deciliter last year, type 2 diabetes, hyperlipidemia, AICD in place, hypertension, COPD. Patient was admitted recently to [facility] for septic shock from cellulitis. Patient was stabilized and discharged to withamikacin and 2 other antibiotics. Lab at revealed SHIRA, hyperkalemia and hyponatremia and patient was sent to [facility]. Lab work this morning revealed potassium 5.3 [...] Skin: No rashes , warm to touch POT FISHER: Awake,Alert, following simple command Musculoskeletal: No joint [...] TID RACHANA Stop: 01/27/25 21:59 Last Admin: 02/05/24 09:13 [...] 100 mls @ 200 mls/hr IV Q24H [facility] Stop: 02/02/25 13:59 Last Admin: 02/04/24 17:56 Dose: 200 mls/hr Insulin Aspart (Insulin Aspart 300 Units/3 Ml Insuln.Pen) 0 units SUBCUT TID.WM.HS [facility]; Protocol Stop: 01/27/25 22:44 Last Admin: 02/05/24 09:15 Dose: 3 units Isosorbide Dinitrate (Isosorbide Dinitrate 20 Mg Tablet) 20 mg PO BID [facility] Stop: 01/28/25 08:59 Last Admin: 02/05/24 09:12 Dose: 20 mg Levothyroxine Sodium (Levothyroxine 50 Mcg Tablet) 50 mcg PO DAILY@0630 [facility] Stop: 01/29/25 06:29 Last Admin: 02/05/24 05:45 Dose: 50 mcg Linezolid (Linezolid 600 Mg Tablet) 600 mg PO BID [facility] Loperamide HCl (Loperamide 2 Mg Capsule) 2 mg PO Q2H PRN PRN Reason: Diarrhea Stop: 01/29/25 10:31 Last Admin: 02/05/24 11:33 Dose: 2 mg Nitroglycerin (Nitroglycerin 0.4 Mg Tab.Subl) 0.4 mg SUBLINGUAL Q5MIN.X3 PRN PRN Reason: Chest Pain Stop: 01/27/25 21:43 Nystatin (Nystatin 100,000 Unit/Gram Powder 15 Gm Bottle) 1 applic TOPICAL QID [facility] Stop: 01/29/25 08:59 Last Admin: [...] (1,000 Units) Tablet) 50 mcg PO DAILY [facility] Stop: 01/31/25 08:59 Last Admin: [...] lower leg: Plan: Patient was admitted to [facility] recently with septic shock from [...] any question or concern. Documented By: Simba Kaumfan MD 02/05/24 1258 Signed By: <Electronically signed by Simba Kaufman MD> 02/05/24 1307 [facility] Work Phone: 1(618) [phone] Progress note Author Farhan Schofield [facility] February 05, 2024 9:20am Note Date/Time February 05, 2024 9:2 0am [facility] EN[facility] [address] [place] [address] Infect. Disease Progress Note Signed Patient: Adwoa Porter MR#: [id number] : 1955 Acct:[id number] Age/Sex: 68 / M Adm Date: 4 Loc: Room: [address] [place] [address] Type: ADM IN Attending Dr: Swathi Burnham [...] Unit/5 Ml Syringe) 500 unit IV-PUSH QSHIFT [facility] Stop: 01/30/25 21:59 Last Admin: 02/05/24 05:06 Dose: Not Given Heparin Sodium (Porcine) (Heparin 10,000 Unit/10 Ml Vial) 3,800 unit IV PRN PRN PRN Reason: Dialysis Stop: 01/28/25 14:06 Last Admin: 02/04/24 15:03 Dose: 3,800 unit Hydralazine HCl (Hydralazine 50 Mg Tablet) 50 mg PO TID RACHANA Stop: 01/27/25 21:59 Last Admin: 02/05/24 09:13 [...] 300 mls @ 300 mls/hr IV Q12H [facility] Last Admin: 02/05/24 03:32 Dose: 300 mls/hr Ertapenem 0.5 gm/ Sodium (Chloride) 100 mls @ 200 mls/hr IV Q24H [facility] Stop: 02/02/25 13:59 Last Admin: 02/04/24 17:56 Dose: 200 mls/hr Insulin Aspart (Insulin Aspart 300 Units/3 Ml Insuln.Pen) 0 units SUBCUT TID.[facility]; Protocol Stop: 01/27/25 22:44 Last Admin: 02/05/24 09:15 Dose: 3 units Isosorbide Dinitrate (Isosorbide Dinitrate 20 Mg Tablet) 20 mg PO BID [facility] Stop: 01/28/25 08:59 Last Admin: 02/05/24 09:12 Dose: 20 mg Levothyroxine Sodium (Levothyroxine 50 Mcg Tablet) 50 mcg PO DAILY@0630 [facility] Stop: 01/29/25 06:29 Last Admin: [...] 15 Gm Bottle) 1 applic TOPICAL QID [facility] Stop: 01/29/25 08:59 Last Admin: [...] skin cedric only. Cultures were obtained from [place]. Antibiotics adjusted tolinezolid and ertapenem. Admission leukocytosis has resolved. Will continue ertapenem IV but switch Linezolid to oral. Given concern for underlying osteomyelitis planning prolonged treatment course. Patient will need platelets followed while on Linezolid. Wound care the foot is being managed by Dr. Arroyo in [place]. Documented By: Farhan Schofield MD 02/05/24917 Signed By: <Electronically signed by MD Farhan Schofield> 02/05/24919 [facility] Work Phone: 1([phone]) 506-263103-18-2024 Progress note Author Valentin Valle [facility] February 04, 2024 6:29pm Note Date/Time February 04, 2024 6:2 9pm [facility] EN[facility] [address] [place], [place] [address] Podiatry Progress Note Signed Patient: Adwoa Porter MR#: [id number] : 1955 Acct:[id number] Age/Sex: 68 / M Adm Date: 4 Loc: Room: [address] [place] [address] Type: ADM IN Attending Dr: Swathi Burnham [...] Dr. Andrews. Theculture that was taken at [facility] revealed normal skinflora. Patient's antibiotic therapy is [...] From podiatry standpoint okay to discharge back [facility] with current wound care orders. [...] Signed By: <Electronically signed by NELLY Valle> 02/04/241828 [facility] Work Phone: 1(875) 916-667803-18-2024 Progress note Author Simba Kaufman [facility] February 04, 2024 5:59pm Note Date/Time February 04, 2024 1:3 0pm [facility] EN[facility] [address] [place] [address] Nephrology Progress Note Signed Patient: Adwoa Porter MR#: [id number] : 1955 Acct:[id number] Age/Sex: 68 / M Adm Date: 4 Loc: 4 Room: [address] [place] [address] Type: ADM IN Attending Dr: Swathi Burnham MD Copies to: ~ Date of Service: 02/04/2024 Subjective Subjective Narrative: This is 68-year-old male patient with past medical history of systolic heart failure ejection fraction 10 to 15%, CKD stage III baseline creatinine around 1.5 mg deciliter last year, type 2 diabetes, hyperlipidemia, AICD in place, hypertension, COPD. Patient was admitted recently to [facility] for septic shock from cellulitis. Patient was stabilized and discharged to withamikacin and 2 other antibiotics. Lab at revealed SHIRA, hyperkalemia and hyponatremia and patient was sent to [facility]. Lab work this morning revealed potassium 5.3 [...] Skin: No rashes , warm to touch POT FISHER: Awake,Alert, following simple command Musculoskeletal: No joint [...] BID RACHANA Stop: 01/31/25 20:59 Last Admin: 02/04/24 10:08 [...] 50 Mg Tablet) 50 mg PO TID [facility] Stop: 01/27/25 21:59 Last Admin: 02/04/24 10:08 [...] 300 mls @ 300 mls/hr IV Q12H [facility] Last Admin: 02/04/24 03:43 Dose: 300 mls/hr Ertapenem 0.5 gm/ Sodium (Chloride) 100 mls @ 200 mls/hr IV Q24H [facility] Stop: 02/02/25 13:59 Last Admin: 02/03/24 14:11 Dose: 200 mls/hr Sodium Chloride (0.9% Sodium Chloride 1,000 Ml) 1,000 mls @ 75 mls/hr IV .[id number] [facility] Stop: 02/03/25 08:14 Last Admin: 02/04/24 08:04 Dose: 100 mls/hr Insulin Aspart (Insulin Aspart 300 Units/3 Ml Insuln.Pen) 0 units SUBCUT TID..[facility]; Protocol Stop: 01/27/25 22:44 Last Admin: 02/04/24 10:07 Dose: 3 units Isosorbide Dinitrate (Isosorbide Dinitrate 20 Mg Tablet) 20 mg PO BID [facility] Stop: 01/28/25 08:59 Last Admin: 02/04/24 10:08 Dose: Not Given Levothyroxine Sodium (Levothyroxine 50 Mcg Tablet) 50 mcg PO DAILY@0630 [facility] Stop: 01/29/25 06:29 Last Admin: [...] 15 Gm Bottle) 1 applic TOPICAL QID [facility] Stop: 01/29/25 08:59 Last Admin: [...] 10 Ml Syringe) 0 ml IV-PUSH QSHIFT [facility] Stop: 01/30/25 21:59 Last Admin: 02/04/24 09:34 Dose: Not Given Vitamin D (Cholecalciferol 25 Mcg (1,000 Units) Tablet) 50 mcg PO DAILY [facility] Stop: 01/31/25 08:59 Last Admin: 02/03/24 08:22 [...] lower leg: Plan: Patient was admitted to [facility] recently with septic shock from [...] any question or concern. Documented By: Simba Kafuman MD 02/04/24 1330 Signed By: <Electronically signed by Simba Kaufman MD> 02/04/24 2827 [facility] Work Phone: 1(402) 805-584803-18-2024 Progress note Author Farhan Schofield [facility] February 04, 2024 10:01am Note Date/Time February 04, 2024 10: 01am [facility] EN[facility] [address] [place] [address] Infect. Disease Progress Note Signed Patient: Adwoa Porter MR#: [id number] : 1955 Acct:[id number] Age/Sex: 68 / M Adm Date: 4 Loc: Room: [address] [place] [address] Type: ADM IN Attending Dr: Farhan Hudson [...] Unit/5 Ml Syringe) 500 unit IV-PUSH QSHIFT [facility] Stop: 01/30/25 21:59 Last Admin: 02/04/24 09:34 Dose: Not Given Heparin Sodium (Porcine) (Heparin 10,000 Unit/10 Ml Vial) 3,800 unit IV PRN PRN PRN Reason: Dialysis Stop: 01/28/25 14:06 Last Admin: 02/02/24 12:08 Dose: 3,800 unit Hydralazine HCl (Hydralazine 50 Mg Tablet) 50 mg PO TID [facility] Stop: 01/27/25 21:59 Last Admin: [...] 300 mls @ 300 mls/hr IV Q12H [facility] Last Admin: 02/04/24 03:43 Dose: 300 mls/hr Ertapenem 0.5 gm/ Sodium (Chloride) 100 mls @ 200 mls/hr IV Q24H [facility] Stop: 02/02/25 13:59 Last Admin: 02/03/24 14:11 Dose: 200 mls/hr Sodium Chloride (0.9% Sodium Chloride 1,000 Ml) 1,000 mls @ 75 mls/hr IV .[id number] [facility] Stop: 02/03/25 08:14 Last Admin: 02/04/24 08:04 Dose: 100 mls/hr Insulin Aspart (Insulin Aspart 300 Units/3 Ml Insuln.Pen) 0 units SUBCUT TID.WM.HS [facility]; Protocol Stop: 01/27/25 22:44 Last Admin: 02/03/24 21:06 Dose: 3 units Isosorbide Dinitrate (Isosorbide Dinitrate 20 Mg Tablet) 20 mg PO BID [facility] Stop: 01/28/25 08:59 Last Admin: 02/03/24 21:04 Dose: 20 mg Levothyroxine Sodium (Levothyroxine 50 Mcg Tablet) 50 mcg PO DAILY@0630 [facility] Stop: 01/29/25 06:29 Last Admin: [...] 15 Gm Bottle) 1 applic TOPICAL QID [facility] Stop: 01/29/25 08:59 Last Admin: [...] 10 Ml Syringe) 0 ml IV-PUSH QSHIFT [facility] Stop: 01/30/25 21:59 Last Admin: 02/04/24 09:34 Dose: Not Given Vitamin D (Cholecalciferol 25 Mcg (1,000 Units) Tablet) 50 mcg PO DAILY [facility] Stop: 01/31/25 08:59 Last Admin: 02/03/24 08:22 [...] skin cedric only. Cultures were obtained from [place]. Antibiotics adjusted tolinezolid and ertapenem. Admission leukocytosis has improved and today is down to 10.1. Urine culture as above but only 15,000 colonies and sensitive to Invanz. Continuing Invanz and linezolid. Documented By: Farhan Schofield MD 02/04/24 0958 Signed By: <Electronically signed by MD Farhan Schofield> 02/04/24 1001 [facility] Work Phone: 1([phone]) 708-237603-18-2024 [facility] Progress note Author Farhan Hudson [facility] February 03, 2024 4:43pm Note Date/Time February 03, 2024 4:4 3pm [facility] [address] [place] [address] Hospitalist Progress Note Signed Patient: Adwoa Porter MR#: [id number] : 1955 Acct:[id number] Age/Sex: 68 / M Adm Date: 4 Loc: Room: [address] [place] [address] Type: ADM IN Attending Dr: Farhan Hudson [...] on the region has exhibited improvement. His AXK5KQ1-RRCc score is at minimum 5. Labile on [...] <Electronically signed by Farhan Hudson DO> 02/03/24 8170 [facility] Work Phone: 1(290) 333-135603-17-2024 Progress note Author Lia Law [facility] February 03, 2024 11:03am Note Date/Time February 03, 2024 11: 03am [facility] [address] [place] [address] Nephrology Progress Note Signed Patient: Adwoa Porter MR#: [id number] : 1955 Acct:[id number] Age/Sex: 68 / M Adm Date: 4 Loc: Room: [address] [place] [address] Type: ADM IN Attending Dr: Farhan Hudson DO Copies to: ~ Date of Service: 02/03/2024 Subjective Subjective Narrative: This is 68-year-old male patient with past medical history of systolic heart failure ejection fraction 10 to 15%, CKD stage III baseline creatinine around 1.5 mg deciliter last year, type 2 diabetes, hyperlipidemia, AICD in place, hypertension, COPD. Patient was admitted recently to [facility] for septic shock from cellulitis. Patient was stabilized and discharged to withamikacin and 2 other antibiotics. Lab at revealed SHIRA, hyperkalemia and hyponatremia and patient was sent to [facility]. Lab work this morning revealed potassium 5.3 [...] following the patient for need of angioplasty Hugh Exam Physical Exam Vital Signs: Temp Pulse [...] 300 mls @ 300 mls/hr IV Q12H [facility] Last Admin: 02/03/24 03:30 Dose: 300 mls/hr Ertapenem 0.5 gm/ Sodium (Chloride) 100 mls @ 200 mls/hr IV Q24H [facility] Stop: 02/02/25 13:59 Insulin Aspart (Insulin Aspart 300 Units/3 Ml Insuln.Pen) 0 units SUBCUT TID.[facility]; Protocol Stop: 01/27/25 22:44 Last Admin: 02/03/24 08:21 Dose: 4 units Isosorbide Dinitrate (Isosorbide Dinitrate 20 Mg Tablet) 20 mg PO BID [facility] Stop: 01/28/25 08:59 Last Admin: 02/03/24 08:23 Dose: 20 mg Levothyroxine Sodium (Levothyroxine 50 Mcg Tablet) 50 mcg PO DAILY@0630 [facility] Stop: 01/29/25 06:29 Last Admin: [...] 15 Gm Bottle) 1 applic TOPICAL QID [facility] Stop: 01/29/25 08:59 Last Admin: [...] lower leg: Plan: Patient was admitted to [facility] recently with septic shock from [...] signed by Lia Law MD> 02/03/24 1103 [facility] Work Phone: [phone] 132-877403-16-2024 Progress note Author Farhan Hudson [facility] February 02, 2024 3:04pm Note Date/Time February 02, 2024 3:0 4pm [facility] [address] [place] [address] Hospitalist Progress Note Signed Patient: Adwoa Porter MR#: [id number] : 1955 Acct:[id number] Age/Sex: 68 / M Adm Date: 4 Loc: Room: [address] [place] [address] Type: ADM IN Attending Dr: Farhan Hudson [...] this will be a continued risk. His PPX2TL3-BFQc score is at minimum 5. Eliquis 2.5 [...] Syringe IV-PUSH 01/30/25 21:59 Not Given QSHIFT [facility] Heparin Sodium (Porcine) 3,800 unit [...] Insuln.Pen SUBCUT 01/27/25 22:44 Not Given TID.WM.HS [facility] Protocol Isosorbide Dinitrate 20 mg [...] Bottle TOPICAL 01/29/25 08:59 1 applic QID [facility] Administration Ondansetron HCl 4 mg [...] Syringe IV-PUSH 01/30/25 21:59 10 ml QSHIFT [facility] Administration Vitamin D 50 mcg 02/01/24 09:00 [...] signed by Farhan Hudson DO> 02/02/24 1504 [facility] Work Phone: 1(745) 183-495503-16-2024 Progress note Author Valentin Valle [facility] February 02, 2024 12:48pm Note Date/Time February 02, 2024 12: 48pm [facility] [address] [place] [address] Podiatry Progress Note Signed Patient: Adwoa Porter MR#: [id number] : 1955 Acct:[id number] Age/Sex: 68 / M Adm Date: 4 Loc: Room: [address] [place] [address] Type: ADM IN Attending Dr: Farhan Hudson [...] . The culture that was taken at [facility] revealed normal skin cedric. Patient's antibiotic therapy [...] From podiatry standpoint okay to discharge back [facility] with current wound care orders. [...] <Electronically signed by NELLY Valle> 02/02/24 1248 [facility] Work Phone: 1([phone]) [phone] Progress note Author Lia Law [facility] February 02, 2024 12:47pm Note Date/Time February 02, 2024 12: 47pm [facility] [address] [place] [address] Nephrology Progress Note Signed Patient: Adwoa Porter MR#: [id number] : 1955 Acct:[id number] Age/Sex: 68 / M Adm Date: 4 Loc: Room: [address] [place] [address] Type: ADM IN Attending Dr: Farhan Hudson DO Copies to: ~ Date of Service: 02/02/2024 Subjective Subjective Narrative: This is 68-year-old male patient with past medical history of systolic heart failure ejection fraction 10 to 15%, CKD stage III baseline creatinine around 1.5 mg deciliter last year, type 2 diabetes, hyperlipidemia, AICD in place, hypertension, COPD. Patient was admitted recently to [facility] for septic shock from cellulitis. Patient was stabilized and discharged to withamikacin and 2 other antibiotics. Lab at revealed SHIRA, hyperkalemia and hyponatremia and patient was sent to [facility]. Lab work this morning revealed potassium 5.3 [...] 2.5 Mg Tablet) 2.5 mg PO BID [facility] Stop: 01/31/25 20:59 Last Admin: 02/02/24 09:58 [...] 12.5 Mg Tablet) 12.5 mg PO BID [facility] Stop: 01/28/25 08:59 Last Admin: [...] Unit/5 Ml Syringe) 500 unit IV-PUSH QSHIFT [facility] Stop: 01/30/25 21:59 Last Admin: 02/02/24 07:02 Dose: Not Given Heparin Sodium (Porcine) (Heparin 10,000 Unit/10 Ml Vial) 3,800 unit IV PRN PRN PRN Reason: Dialysis Stop: 01/28/25 14:06 Last Admin: 02/02/24 12:08 Dose: 3,800 unit Hydralazine HCl (Hydralazine 50 Mg Tablet) 50 mg PO TID [facility] Stop: 01/27/25 21:59 Last Admin: 02/02/24 09:59 Dose: Not Given Linezolid (Zyvox) 600 mg in 300 mls @ 300 mls/hr IV Q12H [facility] Last Admin: 02/01/24 23:20 Dose: [...] 100 mls @ 200 mls/hr IV Q24H [facility] Stop: 01/30/25 09:59 Last Admin: 02/01/24 10:35 Dose: 200 mls/hr Insulin Aspart (Insulin Aspart 300 Units/3 Ml Insuln.Pen) 0 units SUBCUT TID.[facility]; Protocol Stop: 01/27/25 22:44 Last Admin: 02/01/24 21:02 Dose: 4 units Isosorbide Dinitrate (Isosorbide Dinitrate 20 Mg Tablet) 20 mg PO BID [facility] Stop: 01/28/25 08:59 Last Admin: 02/02/24 09:59 Dose: Not Given Levothyroxine Sodium (Levothyroxine 50 Mcg Tablet) 50 mcg PO DAILY@0630 [facility] Stop: 01/29/25 06:29 Last Admin: [...] 15 Gm Bottle) 1 applic TOPICAL QID [facility] Stop: 01/29/25 08:59 Last Admin: [...] 10 Ml Syringe) 0 ml IV-PUSH QSHIFT [facility] Stop: 01/30/25 21:59 Last Admin: 02/02/24 12:08 [...] lower leg: Plan: Patient was admitted to [facility] recently with septic shock from [...] signed by Lia Law MD> 02/02/24 1244 [facility] Work Phone: 1(148) 518-625303-15-2024 Progress note Author Valentin Valle [facility] February 01, 2024 2:37pm Note Date/Time February 01, 2024 2:3 7pm [facility] [address] [place] [address] Podiatry Progress Note Signed Patient: Adwoa Porter MR#: [id number] : 1955 Acct:[id number] Age/Sex: 68 / M Adm Date: 4 Loc: Room: [address] [place] [address] Type: ADM IN Attending Dr: Farhan Hudson [...] Plan: The culture that was taken at [facility] revealed normal skin cedric. Patient's white blood [...] podiatry standpoint okay to discharge back to [facility] with current wound care orders. [...] <Electronically signed by NELLY Valle> 02/01/24 1437 [facility] Work Phone: 1(114) 482-340903-15-2024 Progress note Author Farhan Hudson [facility] February 01, 2024 1:53pm Note Date/Time February 01, 2024 1:5 3pm [facility] ENTER [address] [place] [address] Hospitalist Progress Note Signed Patient: Adwoa Porter MR#: [id number] : 1955 Acct:[id number] Age/Sex: 68 / M Adm Date: 4 Loc: 4 Room: [address] [place] [address] Type: ADM IN Attending Dr: Farhan Hudson [...] this will be a continued risk. His [id number] score is at minimum 5 and undoubtedly [...] <Electronically signed by Farhan Hudson DO> 02/01/24 [facility]3 [facility] Work Phone: 1(440) 591-716003-15-2024 Progress note Author Lia Law [facility] February 01, 2024 1:11pm Note Date/Time February 01, 2024 1:1 1pm [facility] ENTER [address] [place] [address] Nephrology Progress Note Signed Patient: Adwoa Porter MR#: [id number] : 1955 Acct:[id number] Age/Sex: 68 / M Adm Date: 4 Loc: 4P Room: 7A0536-9 Type: ADM IN Attending Dr: Farhan Hudson DO Copies to: ~ Date of Service: 02/01/2024 Subjective Subjective Narrative: This is 68-year-old male patient with past medical history of systolic heart failure ejection fraction 10 to 15%, CKD stage III baseline creatinine around 1.5 mg deciliter last year, type 2 diabetes, hyperlipidemia, AICD in place, hypertension, COPD. Patient was admitted recently to [facility] for septic shock from cellulitis. Patient was stabilized and discharged to withamikacin and 2 other antibiotics. Lab at revealed SHIRA, hyperkalemia and hyponatremia and patient was sent to [facility]. Lab work this morning revealed potassium 5.3 [...] 1,000 Mcg Tablet) 1,000 mcg PO DAILY [facility] Stop: 01/31/25 08:59 Last Admin: [...] Unit/5 Ml Syringe) 500 unit IV-PUSH QSHIFT [facility] Stop: 01/30/25 21:59 Last Admin: 02/01/24 05:59 Dose: Not Given Heparin Sodium (Porcine) (Heparin 10,000 Unit/10 Ml Vial) 3,800 unit IV PRN PRN PRN Reason: Dialysis Stop: 01/28/25 14:06 Last Admin: 01/31/24 16:49 Dose: 3,800 unit Hydralazine HCl (Hydralazine 50 Mg Tablet) 50 mg PO TID [facility] Stop: 01/27/25 21:59 Last Admin: 02/01/24 08:44 Dose: 50 mg Linezolid (Zyvox) 600 mg in 300 mls @ 300 mls/hr IV Q12H [facility] Last Admin: 02/01/24 11:10 Dose: [...] 100 mls @ 200 mls/hr IV Q24H [facility] Stop: 01/30/25 09:59 Last Admin: 02/01/24 10:35 Dose: 200 mls/hr Insulin Aspart (Insulin Aspart 300 Units/3 Ml Insuln.Pen) 0 units SUBCUT TID.[facility]; Protocol Stop: 01/27/25 22:44 Last Admin: 02/01/24 11:44 Dose: 4 units Isosorbide Dinitrate (Isosorbide Dinitrate 20 Mg Tablet) 20 mg PO BID [facility] Stop: 01/28/25 08:59 Last Admin: 02/01/24 08:44 Dose: 20 mg Levothyroxine Sodium (Levothyroxine 50 Mcg Tablet) 50 mcg PO DAILY@0630 [facility] Stop: 01/29/25 06:29 Last Admin: [...] 15 Gm Bottle) 1 applic TOPICAL QID [facility] Stop: 01/29/25 08:59 Last Admin: [...] 10 Ml Syringe) 0 ml IV-PUSH QSHIFT [facility] Stop: 01/30/25 21:59 Last Admin: 02/01/24 05:59 Dose: 10 ml Vitamin D (Cholecalciferol 25 Mcg (1,000 Units) Tablet) 50 mcg PO DAILY [facility] Stop: 01/31/25 08:59 Last Admin: 02/01/24 08:43 [...] lower leg: Plan: Patient was admitted to [facility] recently with septic shock from [...] antibiotics. Inpatient pharmacy to dose antibiotics for HSIRA and thrice weekly TTS hemodialysis sessions * Check CBC and renal function panel in a.m. prior to hemodialysis to adjust order as needed Renal team will continue to follow. Call if any question or concern. Documented By: Lia Law MD 02/01/24 1307 Signed By: <Electronically signed by Lia Law MD> 02/01/24 1311 [facility] Work Phone: 1([phone]) 355-560703-15-2024 Progress note Author Farhan Schofield [facility] February 01, 2024 12:41pm Note Date/Time February 01, 2024 12: 41pm [facility] ENTER [address] [place] [address] Infect. Disease Progress Note Signed Patient: Adwoa Porter MR#: [id number] : 1955 Acct:[id number] Age/Sex: 68 / M Adm Date: 4 Loc: Room: [address] [place] [address] Type: ADM IN Attending Dr: Farhan Hudson [...] 5,000 Unit/Ml Vial) 5,000 unit SUBCUT Q8HR [facility] Stop: 01/27/25 21:59 Last Admin: 02/01/24 05:58 Dose: Not Given Heparin Sodium (Porcine) (Heparin-Lock 500 Unit/5 Ml Syringe) 500 unit IV-PUSH QSHIFT [facility] Stop: 01/30/25 21:59 Last Admin: 02/01/24 05:59 Dose: Not Given Heparin Sodium (Porcine) (Heparin 10,000 Unit/10 Ml Vial) 3,800 unit IV PRN PRN PRN Reason: Dialysis Stop: 01/28/25 14:06 Last Admin: 01/31/24 16:49 Dose: 3,800 unit Hydralazine HCl (Hydralazine 50 Mg Tablet) 50 mg PO TID [facility] Stop: 01/27/25 21:59 Last Admin: 02/01/24 08:44 Dose: 50 mg Linezolid (Zyvox) 600 mg in 300 mls @ 300 mls/hr IV Q12H [facility] Last Admin: 02/01/24 11:10 Dose: [...] 100 mls @ 200 mls/hr IV Q24H [facility] Stop: 01/30/25 09:59 Last Admin: 02/01/24 10:35 Dose: 200 mls/hr Insulin Aspart (Insulin Aspart 300 Units/3 Ml Insuln.Pen) 0 units SUBCUT TID.[facility]; Protocol Stop: 01/27/25 22:44 Last Admin: 02/01/24 11:44 Dose: 4 units Isosorbide Dinitrate (Isosorbide Dinitrate 20 Mg Tablet) 20 mg PO BID [facility] Stop: 01/28/25 08:59 Last Admin: 02/01/24 08:44 Dose: 20 mg Levothyroxine Sodium (Levothyroxine 50 Mcg Tablet) 50 mcg PO DAILY@0630 [facility] Stop: 01/29/25 06:29 Last Admin: [...] 15 Gm Bottle) 1 applic TOPICAL QID [facility] Stop: 01/29/25 08:59 Last Admin: [...] 10 Ml Syringe) 0 ml IV-PUSH QSHIFT [facility] Stop: 01/30/25 21:59 Last Admin: 02/01/24 05:59 Dose: 10 ml Vitamin D (Cholecalciferol 25 Mcg (1,000 Units) Tablet) 50 mcg PO DAILY [facility] Stop: 01/31/25 08:59 Last Admin: 02/01/24 08:43 [...] skin cedric only. Cultures were obtained from [place]. Antibiotics adjusted tolinezolid and ertapenem. Admission leukocytosis has improved. Today down to 11.4. Vascular continues to follow patient. No foot surgery planned for while he is here at this time he will follow-up with Dr. Arroyo upon discharge Documented By: Farhan Schofield MD 02/01/24 1237 Signed By: <Electronically signed by MD Farhan Schofield> 02/01/24 1241 [facility] Work Phone: 1([phone]) 299-602703-15-2024 Progress note Author Selin George [facility] February 01, 2024 11:33am Note Date/Time February 01, 2024 8:4 6am [facility] EN[facility] [address] [place] [address] Vascular Surgery Progress Note Signed Patient: Adwoa Porter MR#: [id number] : 1955 Acct:[id number] Age/Sex: 68 / M Adm Date: 4 Loc: Room: [address] [place] [address] Type: ADM IN Attending Dr: Farhan Hudson [...] MPV Neut % (Auto) Lymph % (Auto) [place] % (Auto) Eos % (Auto) Baso % (Auto) Nucleat RBC Rel Count Neut # (Auto) Lymph # (Auto) [place] # (Auto) Eos # (Auto) Baso # (Auto) PT INR APTT PHA Creatinine Clear Sodium Potassium Chloride Carbon Dioxide Anion Gap BUN Creatinine Est GFR (CKD-EPI) Glucose POC Glucose 191 116 Calcium HCV RNA (PCR) IU/mL N/A HCV RNA PCR endoscopy support specialist log10 N/A 02/01/24 02/01/24 06:00 08:04 Corrected WBC 11.4 H Uncorrected WBC Count 11.4 H RBC 3.24 L Hgb 8.7 L Hct 25.7 L MCV 79.4 L MCH 26.8 L MCHC 33.8 RDW 17.2 H Plt Count 285 MPV 7.3 Neut % (Auto) 82.0 Lymph % (Auto) 10.2 [place] % (Auto) 4.9 Eos % (Auto) 2.0 Baso % (Auto) 0.9 Nucleat RBC Rel Count 0.0 Neut # (Auto) 9.4 H Lymph # (Auto) 1.2 [place] # (Auto) 0.6 Eos # (Auto) 0.2 Baso # (Auto) 0.1 PT 21.5 H INR 1.9 APTT 36.7 H PHA Creatinine Clear 26.53 Sodium 133 L Potassium 4.1 Chloride 96 L Carbon Dioxide 27.5 Anion Gap 13.6 BUN 35 H Creatinine 2.98 H Est GFR (CKD-EPI) 21.976 Glucose 169 H POC Glucose 202 Calcium 7.0 L HCV RNA (PCR) IU/mL HCV RNA PCR endoscopy support specialist log10 Microbiology Microbiology: Microbiology - Results from [...] 0959 <Electronically signed by CHARISSE George> 02/01/24 5596 [facility] Work Phone: [phone]) [phone] Progress note Author Farhan Hudson [facility] January 31, 2024 9:28pm Note Date/Time January 31, 2024 9:2 8pm [facility] ENTER [address] [place] [address] Hospitalist Progress Note Signed Patient: Adwoa Porter MR#: [id number] : 1955 Acct:[id number] Age/Sex: 68 / M Adm Date: 4 Loc: Room: [id number] Type: ADM IN Attending Dr: Farhan Hudson [...] Insuln.Pen SUBCUT 01/27/25 22:44 Not Given TID.WM.[facility] Protocol Isosorbide Dinitrate 20 mg [...] <Electronically signed by Farhan Hudson DO> 01/31/24 7738 [facility] Work Phone: 1([phone]) 558-678603-14-2024 Progress note Author Farhan Hudson [facility] January 31, 2024 2:00pm Note Date/Time January 30, 2024 8:3 2pm [facility] EN[facility] [address] [place] [address] Hospitalist Progress Note Signed Patient: Adwoa Porter MR#: [id number] : 1955 Acct:[id number] Age/Sex: 68 / M Adm Date: 4 Loc: Room: 7Y3976-9 Type: ADM IN Attending Dr: Farhan Hudson [...] <Electronically signed by Farhan Hudson DO> 01/31/[address] [place] [address] Ctr Work Phone: 1(649) 345-497903-14-2024 [facility] Procedure [facility]03-14-2024 Progress note Author Farhan Schofield [facility] January 31, 2024 9:24am Note Date/Time January 31, 2024 9:1 0am [facility] ENTER [address] [place] [address] Infect. Disease Progress Note Signed Patient: Adwoa Porter MR#: [id number] : 1955 Acct:[id number] Age/Sex: 68 / M Adm Date: 4 Loc: Room: [address] [place] [address] Type: ADM IN Attending Dr: Farhan Hudson [...] 5,000 Unit/Ml Vial) 5,000 unit SUBCUT Q8HR [facility] Stop: 01/27/25 21:59 Last Admin: 01/31/24 06:38 Dose: Not Given Heparin Sodium (Porcine) (Heparin 10,000 Unit/10 Ml Vial) 2,600 unit IV PRN PRN PRN Reason: Dialysis Stop: 01/28/25 14:06 Last Admin: 01/29/24 15:13 Dose: 2,600 unit Hydralazine HCl (Hydralazine 50 Mg Tablet) 50 mg PO TID [facility] Stop: 01/27/25 21:59 Last Admin: 01/31/24 03:12 Dose: Not Given Ceftriaxone Sodium (Rocephin) 1 gm in 50 mls @ 100 mls/hr IV Q24H [facility] Last Admin: 01/30/24 20:37 Dose: 100 mls/hr Linezolid (Zyvox) 600 mg in 300 mls @ 300 mls/hr IV Q12H [facility] Last Admin: 01/30/24 21:37 Dose: [...] Units/3 Ml Insuln.Pen) 0 units SUBCUT TID.WM.[facility]; Protocol Stop: 01/27/25 22:44 Last Admin: 01/31/24 08:51 Dose: Not Given Isosorbide Dinitrate (Isosorbide Dinitrate 20 Mg Tablet) 20 mg PO BID [facility] Stop: 01/28/25 08:59 Last Admin: 01/30/24 20:37 Dose: 20 mg Levothyroxine Sodium (Levothyroxine 50 Mcg Tablet) 50 mcg PO DAILY@0630 [facility] Stop: 01/29/25 06:29 Last Admin: 01/31/24 06:39 [...] dressing changes. Based on culture results from [place] though faxed copy difficult to see given blacked out names of organisms. ? 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 Change ceftriaxone to invanz; maintain linezolid. Documented By: Farhan Schofield MD 01/31/24 0907 Signed By: <Electronically signed by MD Farhan Schofield> 01/31/24 0924 [facility] Work Phone: 1(540) [phone] Progress note Author Valentin Valle [facility] January 31, 2024 9:18am Note Date/Time January 31, 2024 9:1 6am [facility] ENTER [address] [place] [address] Podiatry Progress Note Signed Patient: Adwoa Porter MR#: [id number] : 1955 Acct:[id number] Age/Sex: 68 / M Adm Date: 4 Loc: Room: [address] [place] [address] Type: ADM IN Attending Dr: Farhan Hudson [...] follow-up [facility] Dr. [facility]. I explained [...] <Electronically signed by NELLY Valle> 01/31/24 0918 [facility] Work Phone: 1(208) 182-177503-14-2024 Consult note Author Raul Bravo [facility] January 31, 2024 8:34am Note Date/Time January 30, 2024 9:1 9am [facility] ENTER [address] [place] [address] Vascular Surgery Consult Note Signed Patient: Adwoa Porter MR#: [id number] : 1955 Acct:[id number] Age/Sex: 68 / M Adm Date: 4 Loc: Room: [address] [place] [address] Type: ADM IN Attending Dr: Farhan Hudson [...] for tunneled hemodialysis catheter. Addendum: Per patient's internal controls manager, he has had a history of peripheral [...] to the presenting medical problem. [facility] Medical History (Updated 01/29/24 @ [...] MPV Neut % (Auto) Lymph % (Auto) [place] % (Auto) Eos % (Auto) Baso % (Auto) Nucleat RBC Rel Count Neut # (Auto) Lymph # (Auto) [place] # (Auto) Eos # (Auto) Baso # (Auto) PHA Creatinine Clear Sodium Potassium Chloride Carbon Dioxide Anion Gap BUN Creatinine Est GFR (CKD-EPI) Glucose POC Glucose 236 Calcium Urine Color Dark yellow A Urine Appearance Cloudy A Urine pH 5.0 Ur Specific [place] 1.019 Urine Protein 100 H Urine Glucose [...] % (Auto) 83.7 Lymph % (Auto) 9.8 [place] % (Auto) 3.8 Eos % (Auto) 1.7 Baso % (Auto) 1.0 Nucleat RBC Rel Count 0.0 Neut # (Auto) 11.3 H Lymph # (Auto) 1.3 [place] # (Auto) 0.5 Eos # (Auto) 0.2 Baso # (Auto) 0.1 PHA Creatinine Clear 17.22 Sodium 128 L Potassium 4.2 D Chloride 95 L Carbon Dioxide 21.9 Anion Gap 15.3 H BUN 73 H D Creatinine 4.57 H D Est GFR (CKD-EPI) 13.156 Glucose 144 H POC Glucose 256 170 Calcium 7.1 L Urine Color Urine Appearance Urine pH Ur Specific [place] Urine Protein Urine Glucose (UA) Urine Ketones [...] <Electronically signed by CHARISSE George> 01/31/24 0737 [facility] Work Phone: [phone]) [phone] Progress note Author Lia Law [facility] January 30, 2024 2:30pm Note Date/Time January 30, 2024 2:3 0pm [facility] EN[facility] [address] [place] [address] Nephrology Progress Note Signed Patient: Adwoa Porter MR#: [id number] : 1955 Acct:[id number] Age/Sex: 68 / M Adm Date: 4 Loc: Room: [address] [place] [address] Type: ADM IN Attending Dr: Farhan Hudson DO Copies to: ~ Date of Service: 01/30/2024 Subjective Subjective Narrative: This is 68-year-old male patient with past medical history of systolic heart failure ejection fraction 10 to 15%, CKD stage III baseline creatinine around 1.5 mg deciliter last year, type 2 diabetes, hyperlipidemia, AICD in place, hypertension, COPD. Patient was admitted recently to [facility] for septic shock from cellulitis. Patient was stabilized and discharged to withamikacin and 2 other antibiotics. Lab at revealed SHIRA, hyperkalemia and hyponatremia and patient was sent to [facility]. Lab work this morning revealed potassium 5.3 [...] 80 Mg Tablet) 80 mg PO DAILY [facility] Stop: 01/28/25 08:59 Last Admin: [...] 50 mls @ 100 mls/hr IV Q24H [facility] Last Admin: 01/29/24 21:13 Dose: 100 mls/hr Linezolid (Zyvox) 600 mg in 300 mls @ 300 mls/hr IV Q12H [facility] Last Admin: 01/30/24 10:50 Dose: [...] Units/3 Ml Insuln.Pen) 0 units SUBCUT TID.WM.[facility]; Protocol Stop: 01/27/25 22:44 Last Admin: 01/30/24 12:52 Dose: 8 units Isosorbide Dinitrate (Isosorbide Dinitrate 20 Mg Tablet) 20 mg PO BID [facility] Stop: 01/28/25 08:59 Last Admin: 01/30/24 09:02 Dose: 20 mg Levothyroxine Sodium (Levothyroxine 50 Mcg Tablet) 50 mcg PO DAILY@0630 [facility] Stop: 01/29/25 06:29 Last Admin: [...] Cloudy A Urine pH 5.0 Ur Specific [place] 1.019 Urine Protein 100 H Urine Glucose [...] lower leg: Plan: Patient was admitted to [facility] recently with septic shock from [...] signed by Lia Law MD> 01/30/24 1430 [facility] Work Phone: 1([phone]) 418-196703-13-2024 Progress note Author Valentin Valle [facility] January 30, 2024 11:44am Note Date/Time January 30, 2024 11: 44am [facility] EN[facility] [address] [place] [address] Podiatry Progress Note Signed Patient: Adwoa Porter MR#: [id number] : 1955 Acct:[id number] Age/Sex: 68 / M Adm Date: 4 Loc: Room: [address] [place] [address] Type: ADM IN Attending Dr: Farhan Hudson [...] <Electronically signed by NELLY Valle> 01/30/24 1144 [facility] Work Phone: [phone]) 615-603803-13-2024 Progress note Author Farhan Schofield [facility] January 30, 2024 11:06am Note Date/Time January 30, 2024 11: 06am [facility] EN[facility] [address] [place] [address] Infect. Disease Progress Note Signed Patient: Adwoa Porter MR#: [id number] : 1955 Acct:[id number] Age/Sex: 68 / M Adm Date: 4 Loc: Room: [address] [place] [address] Type: ADM IN Attending Dr: Farhan Hudson [...] 50 mls @ 100 mls/hr IV Q24H [facility] Last Admin: 01/29/24 21:13 Dose: 100 mls/hr Linezolid (Zyvox) 600 mg in 300 mls @ 300 mls/hr IV Q12H [facility] Last Admin: 01/30/24 10:50 Dose: [...] 300 Units/3 Ml Insuln.Pen) 0 units SUBCUT TID.[facility]; Protocol Stop: 01/27/25 22:44 Last Admin: 01/30/24 09:02 Dose: 3 units Isosorbide Dinitrate (Isosorbide Dinitrate 20 Mg Tablet) 20 mg PO BID [facility] Stop: 01/28/25 08:59 Last Admin: 01/30/24 09:02 Dose: 20 mg Levothyroxine Sodium (Levothyroxine 50 Mcg Tablet) 50 mcg PO DAILY@0630 [facility] Stop: 01/29/25 06:29 Last Admin: [...] 15 Gm Bottle) 1 applic TOPICAL QID [facility] Stop: 01/29/25 08:59 Last Admin: [...] for now Documented By: Farhan Schofield MD 01/30/241101 Signed By: <Electronically signed by MD Farhan Schofield> 01/30/24 1106 [facility] Work Phone: 1(170) [phone] Progress note Author Farhan Hudson [facility] January 29, 2024 11:06pm Note Date/Time January 29, 2024 11: 06pm [facility] ENTER [address] [place] [address] Hospitalist Progress Note Signed Patient: Adwoa Porter MR#: [id number] : 1955 Acct:[id number] Age/Sex: 68 / M Adm Date: 4 Loc: Room: 3N4152-5 Type: ADM IN Attending Dr: Farhan Hudson [...] <Electronically signed by Farhan Hudson DO> 01/29/24 1926 [facility] Work Phone: 1([phone]) 876-604703-12-2024 Consult note Author Valentin Valle [facility] January 29, 2024 7:19pm Note Date/Time January 29, 2024 6:1 0pm [facility] EN[facility] [address] [place] [address] Podiatry Consult Note Signed with Ramona Patient: Adwoa Porter MR#: [id number] : 1955 Acct:[id number] Age/Sex: 68 / M Adm Date: 4 Loc: Room: 1B4591-6 Type: ADM IN Attending Dr: Farhan Hudson [...] in bed. Patient was transferred here from [facility] due to severe kidney diseaserequiring hemodialysis. Patient currently denies any history of nausea, vomiting, fever or chills. Patient was recently hospitalized for septic shock apparently 2 weeks ago at [facility]. Patient was seen by Dr. Farmer his fellows there for an abscess foot. They had done a wide I&D done to treat the abscess to foot. Patient was then sent to [facility] with orders for a wound VAC. Patient was seen by Dr. Arroyo about 2 weeks ago and was told that everything looked good. Patient again was sent to [facility] for his kidney disease and upon evaluation [...] Skin/Breast: Reports skin ulcer and Reports wounds PMFSH Medical History (Updated 01/29/24 @ 18:01 by [...] tried to speak with Dr. Arroyo the internal controls manager who did the an I&D of the left foot however he was out of town at a conference. I did speak with his fellow that he is training, Dr. Herminio Souza ([phone]). Dr. Souza mentioned that they had to do an emergent I&D due to an abscess on the left foot. This happened on 01/17/2024. Patient was then discharged to [facility] with orders to begin for a wound VAC. Patient was placed on multiple antibiotic therapy ultimately he then was placed on amikacin. Due to abnormal lab work patient was sent to [facility] and then was transferred to [facility] for hemodialysis and kidney disease. Dr. Souza [...] By: <Electronically signed by NELLY Valle> 01/29/24 5539 [facility] Work Phone: 1(483) 868-791303-12-2024 Consult note Author Lia Law [facility] January 29, 2024 3:28pm Note Date/Time January 29, 2024 9:5 7am [facility] EN[facility] [address] [place] [address] Nephrology Consult Note Signed Patient: Adwoa Porter MR#: [id number] : 1955 Acct:[id number] Age/Sex: 68 / M Adm Date: 4 Loc: Room: [address] [place] [address] Type: ADM IN Attending Dr: Farhan Hudson [...] hypertension, COPD. Patient was admitted recently to [facility] for septic shock from cellulitis. Patient was stabilized and discharged to withamikacin and 2 other antibiotics. Lab at revealed SHIRA, hyperkalemia and hyponatremia and patient was sent to [facility]. Lab work this morning revealed potassium 5.3 [...] system review is negative today [facility] Medical History (Updated 01/29/24 @ [...] dulaglutide 4.5 mg/0.5 mL subcutaneous pen [facility] See Rx Instructions .Route .COMPLEX [...] 50 mls @ 100 mls/hr IV Q24H [facility] Last Admin: 01/28/24 22:57 Dose: 100 mls/hr Linezolid (Zyvox) 600 mg in 300 mls @ 300 mls/hr IV Q12H [facility] Last Admin: 01/28/24 23:39 Dose: 300 mls/hr Sodium Chloride (0.9% Sodium Chloride 1,000 Ml) 1,000 mls @ 100 mls/hr IV .[id number] Stop: 01/27/25 21:44 Last Admin: 01/28/24 23:37 Dose: 100 mls/hr Insulin Aspart (Insulin Aspart 300 Units/3 Ml Insuln.Pen) 0 units SUBCUT TID.WM.[facility]; Protocol Stop: 01/27/25 22:44 Last Admin: 01/29/24 09:04 Dose: 4 units Isosorbide Dinitrate (Isosorbide Dinitrate 20 Mg Tablet) 20 mg PO BID [facility] Stop: 01/28/25 08:59 Last Admin: [...] lower leg: Plan: Patient was admitted to [facility] recently with septic shock from [...] <Electronically signed by Lia Law MD> 01/29/24 8367 [facility] Work Phone: 1(375) 571-335803-12-2024 [facility] Consult note Author Ching Loyola [facility] January 29, 2024 10:05am Note Date/Time January 29, 2024 9:4 5am [facility] ENTER [address] [place] [address] Infect. Disease Consult Note Signed Patient: Adwoa Porter MR#: [id number] : 1955 Acct:[id number] Age/Sex: 68 / M Adm Date: 4 Loc: Room: [address] [place] [address] Type: ADM IN Attending Dr: Farhan Hudson DO Copies to: Ching Looyla DO, RES DO Farhan Munoz MD Thomas R Conley, DO~ HPI Data of Consult Consult date: 01/29/24 Requesting Physician: Farhan Hudson DO Primary Care Provider: Vinnie Stewart DO Consult Narrative Reason for consult: Cellulitis History of present illness: Mr. Porter is a 68 year old male who was recently discharged from [facility] on January 22 to skilled care facility after treatment for septic shock secondary to cellulitis. He was discharged on amikacin and ceftriazone for polymicrobial growth and confirmed bone culture and was placed on a wound VAC. He was sent to the ED at [place] by the [facility] after he had abnormal labs with worsening [...] skin ulcer and Reports wounds [facility] Medical History (Updated 01/08/24 @ [...] 5,000 Unit/Ml Vial) 5,000 unit SUBCUT Q8HR [facility] Stop: 01/27/25 21:59 Last Admin: 01/29/24 06:36 Dose: Not Given Hydralazine HCl (Hydralazine 50 Mg Tablet) 50 mg PO TID [facility] Stop: 01/27/25 21:59 Last Admin: 01/29/24 09:03 Dose: 50 mg Ceftriaxone Sodium (Rocephin) 1 gm in 50 mls @ 100 mls/hr IV Q24H [facility] Last Admin: 01/28/24 22:57 Dose: 100 mls/hr Linezolid (Zyvox) 600 mg in 300 mls @ 300 mls/hr IV Q12H [facility] Last Admin: 01/28/24 23:39 Dose: 300 mls/hr Sodium Chloride (0.9% Sodium Chloride 1,000 Ml) 1,000 mls @ 100 mls/hr IV .[id number] Stop: 01/27/25 21:44 Last Admin: 01/28/24 23:37 Dose: 100 mls/hr Insulin Aspart (Insulin Aspart 300 Units/3 Ml Insuln.Pen) 0 units SUBCUT TID.WM.HS [facility]; Protocol Stop: 01/27/25 22:44 Last Admin: 01/29/24 09:04 Dose: 4 units Isosorbide Dinitrate (Isosorbide Dinitrate 20 Mg Tablet) 20 mg PO BID [facility] Stop: 01/28/25 08:59 Last Admin: [...] osteomyelitis based on bone culture when at [place]. It is likely that his acute on chronic kidney injury is stemming from his recent antibiotic use specifically likely the amikacin. Cultures when they were taken were done at [place] so I do not have these results at this time. I cannot exactly be sure specifically why amikacin was chosen but fingering due to resistance it was one of the few options available. Will reach out to [place] to get sensitivities faxed up to us. [...] signed by MD Farhan Schofield> 01/29/24 [address] [facility] Work Phone: 1(197) 345-703603-11-2024 History and physical note Author Farhan Hudson [facility] January 28, 2024 9:17pm Note Date/Time January 28, 2024 8:3 0pm [facility] EN[facility] [address] [place] [address] Hospitalist H&P Signed Patient: Adwoa Porter MR#: [id number] : 1955 Acct:[id number] Age/Sex: 68 / M Adm Date: 4 Loc: Room: [address] [place] [address] Type: ADM IN Attending Dr: Farhan Hudson DO Copies to: DO Vninie Munoz DO~ HPI DATE OF EXAMINATION: 01/28/24 CHIEF COMPLAINT: Abnormal labs HISTORY OF PRESENT ILLNESS: This patient is a 68-year-old male with a history of multiple medical comorbidities including systolic heart failure reported ejection fraction 10 to 15% and CKD stage III. He was recently hospitalized at [place] and discharged January 22 to a skilled care facility after being treated for septic shock secondary to a cellulitis. He was discharged on IV antibiotic therapy includingamikacin for polymicrobial growth with a wound VAC and PICC line. He was sent to the emergency department today at [place] for abnormal labs notably worsening kidney function. [...] possibly effusion. He was subsequently transferred to [facility] for nephrology consultation and further workup of [...] wound cultures need to be obtained from [place] and I will consult infectious disease given [...] noted below or in HPI [facility] Medical History (Updated 01/08/24 @ [...] <Electronically signed by Farhan Hudson, > 01/28/24 [address] [facility] Work Phone: 1(704) 597-920203-08-2024 NoteCoronary artery disease is stable with out Concerning symptoms Continue GDMT continue risk factor modifications- heart healthy diet, regular exercise as tolerated and continue all medications.[facility] 01-25-2024 NoteNYHC II-III currently he appears [...] electrolytes- please maintain K+>4 and Mg > 2UnCincinnati Shriners Hospital 01-25-2024 NoteUTP CARDIOLOGY PROGRESS NOTE HPI: Adwoa Porter is a 68 y.o. male here for hospital F/U- [facility] HPI Pt presents today for hospital f/U after recent admit to [facility]. Known PMH HFrEF, CAD, a fib, LV thrombus, severe TV regurg. Denied chest pain, SOB, orthopnea, palpitations. States overall he is feeling well and only complaint is the antibiotic shot. He currently is living at a SNF after DC from hospital, receiving IV antibiotics via PICC line. Admit 01/15/24-01/23/24 Pt was admitted to [facility] for Sepsis- non healing DFU, Acute [...] with known h/o coronary artery disease with SAFETY PATROL OFFICER of the RCA and mild to [...] with lunch, and with evening meal. HYDROcodone-acetaminophen (Hogeland) 5-325 mg tablet Take 1 tablet by [...] movements intact. Conjunctiva/sclera: Conj (more content not included)...[facility]03-08-2024 NotePatient here for follow up [facility]. Bumex was stopped by Dr. Fournier upon discharge. Denies chest pain, SOB, palpitations lightheadedness/syncope, and bleeding on warfarin. Review of Systems Cardiovascular: Positive for leg swelling. Skin: Positive for poor wound healing. Musculoskeletal: Positive for muscle weakness. All other systems reviewed and are negative.[facility] 12-20-2023 Evaluation note* Encounter Date Diagnosis Assessment Notes Treatment Notes Treatment Clinical Notes Dec, Facet arthritis of lumbar region (ICD-10 - M46.96) [facility] [employer] Other 01-29-2024 Evaluation note* Encounter Date Diagnosis Assessment Notes Treatment Notes Treatment Clinical Notes Nov, Increased urinary frequency (ICD-10 - R35.0) [employer] Other 01-22-2024 Evaluation note* Encounter Date Diagnosis [...] a burger and a few fries from [employer] before he came here. He said that [...] and making changes by Shaw Rondon RN, [facility]. 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 failure w/hypoxia, acute on systolic chronic HF Medical History [facility]- r ight great toe bleeding (not stopping) Medical History pneumonia-[facility] 06-05 Medical History [facility]-7-2023 Medical History [id number]-[facility] Medical History NON RESPONSIVE X 2 IN [...] Hospitalization History rt. heart cath Rex Stout- [facility] 05/11/16 [facility] Hospitalization History Observation-[facility] pital 11/2017 Hospitalization History INFECTION IN LEFT SMALL TOE AND FOOT 11/2018 Hospitalization History [facility] -- ICU -- COPD, SMAL L WOUND ON LEFT FOOT 12/2019 Hospitalization History COPD [facility] [place] 12/2019 Hospitalization History Ankle wound 01/2020 Hospitalization History COVID 11/2020 Hospitalization History A-FIB, CHF, KIDNEY ISSUE S 03/2021 Hospitalization History [facility] 01/2023 Hospitalization History [facility] discha rged 03-27-2023 Hospitalization History [facility] x2 7-2 023 Hospitalization History RSV-[facility] 10-2 023 Hospitalization History [facility] rib fx left Hospitalization History [facility] -pnemo jennifer [employer] Other 01-08-2024 NotePatient here for 2 mo follow up CHF, permanent afib, and CAD. He was admitted to [facility] last month for sepsis and pneumonia. He denies chest pain, SOB, and bleeding on warfarin. Doing well s/p hospital admission. Had follow up labs on 11/09/2023. Review of Systems Cardiovascular: Positive for leg swelling (L > R). Musculoskeletal: Positive for muscle weakness. All other systems reviewed and are negative.[facility] 11-26-2023 NoteUTP CARDIOLOGY PROGRESS NOTE HPI: Adwoa Porter is a 68 y.o. male here for HFrEF, CAD, a fib, LV thrombus, severe TV regurg. HPI 68 yo male with known h/o coronary artery disease with SAFETY PATROL OFFICER of the RCA and mild to [...] afib, and CAD. He was admitted to [facility] last month for sepsis and pneumonia. [...] is significant for coronary artery disease with SAFETY PATROL 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 He was recently admitted to [facility] in August 2023 with acute respiratory failure [...] breath at rest. He recovered at the half-way facility but he is now back home. [...] with lunch, and with evening meal. HYDROcodone-acetaminophen (Hogeland) 5-325 mg tablet Take 1 tablet by [...] crush or chew. lucy (more content not included)...[facility] 11-26-2023 NoteRemains on warfarin Denied any bleeding tendencies voicedUniversOhioHealth [facility] 11-26-2023 NoteMonitor with routine echoUnCincinnati [facility]riners [facility] 11-26-2023 NoteDevice interrogation q 6 monthsUnCincinnati [facility]riners Hospital01-08-2024 NoteContinue coreg AICD in placeUnCincinnati Shriners Hospital01-08-2024 NoteRemains on statin [facility]01-08-2024 NoteHypertension is well controlled 113/71 Remains on Coreg, hydralazine, isordil, aldacotonUnCincinnati Shriners Hospital01-08-2024 NoteNYHC IIIc- currently euvolemic without exacerbation Continue GDMT- ASA, lipitor, coreg, farxiga, digoxin, hydralazine, isordil, aldactone Diuretic therapy- bumex and metolazone= f/U with nephrology Monitor daily weights, I&O, fluid restriction 1.5-2L/day, renal function and electrolytes-[facility]01-08-2024 NoteRemains on GDMT [facility]01-08-2024 [id number]= 5- HTN, CHF, CAD, DM remainds on warfarin anticoagulation, DIgoxin and COregUnCincinnati Shriners Hospital01-08-2024 NoteCoronary artery disease is stable Continue GDMT- ASA, lipitor, coreg continue risk factor modifications- heart healthy diet, regular exercise as tolerated and continue all medications.[facility] 11-22-2023 Evaluation note* Encounter Date Diagnosis [...] arthritis of lumbar region (ICD-10 - M46.96) [employer] Other 01-03-2024 Evaluation note* Encounter Date Diagnosis Assessment Notes Treatment Notes Treatment Clinical Notes Nov, Facet arthritis of lumbar region (ICD-10 - M46.96) [employer] Other 12-28-2023 Evaluation note* Encounter Date Diagnosis [...] continue follow-up with hematology as needed basis. 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 failure w/hypoxia, acute on systolic chronic HF Medical History [facility]- r ight great toe bleeding (not stopping) Medical History pneumonia-[facility] 06-05 Medical History [facility]-7-2023 Medical History [id number]-[facility] Surgical History Cardiac catherization (07/2010) Surgical History AICD insertion (11/2010) Surgical History right sided heart cath - [place] 10/2013 Surgical History appendectomy Surgical History rt [...] Hospitalization History rt. heart cath Rex Stout- [facility] 05/11/16 Hospitalization History [facility] 02/2017 Hospitalization History Observation-[facility] 11/2017 Hospitalization History INFECTION IN LEFT SMALL TOE AND FOOT 11/2018 Hospitalization History [facility] -- ICU -- COPD, SMAL L WOUND ON LEFT FOOT 12/2019 Hospitalization History COPD [facility] [place] 12/2019 Hospitalization History Ankle wound 01/2020 Hospitalization History COVID 11/2020 Hospitalization History A-FIB, CHF, KIDNEY ISSUE S 03/2021 Hospitalization History [facility] 01/2023 Hospitalization History [facility] discha rged 03-27-2023 Hospitalization History [facility] x2 7-2 023 Hospitalization History RSV-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 failure w/hypoxia, acute on systolic chronic HF Medical History [facility]- r ight great toe bleeding (not stopping) Medical History pneumonia-[facility] 06-05 Medical History [facility]-7-2023 Medical History [id number]-[facility] Surgical History Cardiac catherization (07/2010) Surgical History AICD insertion (11/2010) Surgical History right sided heart cath - [place] 10/2013 Surgical History appendectomy Surgical History rt [...] Hospitalization History rt. heart cath Rex Stout- [facility] 05/11/16 Hospitalization History [facility] 02/2017 Hospitalization History Observation-[facility] pitme 11/2017 Hospitalization History INFECTION IN LEFT SMALL TOE AND FOOT 11/2018 Hospitalization History [facility] -- ICU -- COPD, SMAL L WOUND ON LEFT FOOT 12/2019 Hospitalization History COPD [facility] [place] 12/2019 Hospitalization History Ankle wound 01/2020 Hospitalization History COVID 11/2020 Hospitalization History A-FIB, CHF, KIDNEY ISSUE S 03/2021 Hospitalization History [facility] 01/2023 Hospitalization History [facility] discha rged 03-27-2023 Hospitalization History [facility] x2 7-2 023 Hospitalization History 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 failure w/hypoxia, acute on systolic chronic HF Medical History [facility]- r ight great toe bleeding (not stopping) Medical History pneumonia-[facility] 06-05 Medical History [facility]-7-2023 Medical History [id number]-[facility] Surgical History Cardiac catherization (07/2010) Surgical History AICD insertion (11/2010) Surgical History right sided heart cath - [place] 10/2013 Surgical History appendectomy Surgical History rt [...] Hospitalization History rt. heart cath Rex Stout- [facility] 05/11/16 Hospitalization History [facility] 02/2017 Hospitalization History Observation-[facility] 11/2017 Hospitalization History INFECTION IN LEFT SMALL TOE AND FOOT 11/2018 Hospitalization History [facility] -- ICU -- COPD, SMAL L WOUND ON LEFT FOOT 12/2019 Hospitalization History COPD [facility] [place] 12/2019 Hospitalization History Ankle wound 01/2020 Hospitalization History COVID 11/2020 Hospitalization History A-FIB, CHF, KIDNEY ISSUE S 03/2021 Hospitalization History [facility] 01/2023 Hospitalization History [facility] discha rged 03-27-2023 Hospitalization History [facility] x2 7-2 023 Hospitalization History 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 failure w/hypoxia, acute on systolic chronic HF Medical History [facility]- r ight great toe bleeding (not stopping) Medical History pneumonia-[facility] 06-05 Medical History [facility]-7-2023 Medical History [id number]-[facility] Surgical History Cardiac catherization (07/2010) Surgical History AICD insertion (11/2010) Surgical History right sided heart cath - [place] 10/2013 Surgical History appendectomy Surgical History rt [...] Hospitalization History rt. heart cath Rex Stout- [facility] 05/11/16 Hospitalization History [facility] 02/2017 Hospitalization History Observation-[facility] 11/2017 Hospitalization History INFECTION IN LEFT SMALL TOE AND FOOT 11/2018 Hospitalization History [facility] -- ICU -- COPD, SMAL L WOUND ON LEFT FOOT 12/2019 Hospitalization History COPD [facility] [place] 12/2019 Hospitalization History Ankle wound 01/2020 Hospitalization History COVID 11/2020 Hospitalization History A-FIB, CHF, KIDNEY ISSUE S 03/2021 Hospitalization History [facility] 01/2023 Hospitalization History [facility] discha rged 03-27-2023 Hospitalization History [facility] x2 7-2 023 Hospitalization History 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 failure w/hypoxia, acute on systolic chronic HF Medical History [facility]- r ight great toe bleeding (not stopping) Medical History pneumonia-[facility] 06-05 Medical History [facility]-7-2023 Medical History [id number]-[facility] Surgical History Cardiac catherization (07/2010) Surgical History [...] Hospitalization History rt. heart cath Rex Stout- [facility] 05/11/16 Hospitalization History [facility] 02/2017 Hospitalization History [facility] pitme 11/2017 Hospitalization History INFECTION IN LEFT SMALL TOE AND FOOT 11/2018 Hospitalization History [facility] -- ICU -- COPD, SMAL L WOUND ON LEFT FOOT 12/2019 Hospitalization History COPD [facility] [place] 12/2019 Hospitalization History Ankle wound 01/2020 Hospitalization History COVID 11/2020 Hospitalization History A-FIB, CHF, KIDNEY ISSUE S 03/2021 Hospitalization History [facility] 01/2023 Hospitalization History [facility] discha rged 03-27-2023 Hospitalization History [facility] x2 7-2 023 Hospitalization History [facility] 10-2 023 [employer] Other 11-20-2023 Evaluation note* Encounter Date Diagnosis [...] spent on education by Lashell KARIMI, RN [employer] Other 11-16-2023 Evaluation note* Encounter Date Diagnosis Assessment Notes Treatment Notes Treatment Clinical Notes Sep, Type 2 diabetes mellitus with hyperglycemia (ICD-10 - E11.65) Adwoa came in today for download and Evaluation of his Lucas report after calling and stating earlier this week that his BGs have been high and he is out of [facility] and nearly out of [facility]. He failed to bring his meter or [...] able to help patient improve his glycemia. 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 failure w/hypoxia, acute on systolic chronic HF Medical History [facility]- r ight great toe bleeding (not stopping) Medical History pneumonia-[facility] 06-05 Medical History [facility]-7-2023 Medical History [id number]-[facility] Surgical History Cardiac catherization (07/2010) Surgical History AICD insertion (11/2010) Surgical History right sided heart cath - [place] 10/2013 Surgical History appendectomy Surgical History rt [...] Hospitalization History rt. heart cath Rex Stout- [facility] 05/11/16 Hospitalization History [facility] 02[facility]2017 Hospitalization History [facility] 11/2017 Hospitalization History INFECTION IN LEFT SMALL TOE AND FOOT 11/2018 Hospitalization History [facility] -- ICU -- COPD, SMAL L WOUND ON LEFT FOOT 12/2019 Hospitalization History COPD [facility] [place] 12/2019 Hospitalization History Ankle wound 01/2020 Hospitalization History COVID 11/2020 Hospitalization History A-FIB, CHF, KIDNEY ISSUE S 03/2021 Hospitalization History [facility] 01/2023 Hospitalization History [facility] discha rged 03-27-2023 Hospitalization History [facility] x2 [phone] Hospitalization History [facility] 10-2 023 [employer] Other 11-03-2023 NoteUT Cardiology - [facility] Subjective Adwoa Porter is a 68 y.o. year old male patient being seen for Follow-up and Congestive Heart Failure Patient Active Problem List Diagnosis Anxiety state Atrial fibrillation (CMS/HCC) Chronic obstructive lung disease (CMS/HCC) Chronic systolic congestive heart failure (CMS/HCC) Conduction disorder of the heart Atherosclerosis of [place] coronary artery of [place] heart without angina pectoris Type 2 diabetes [...] of lesser toe of left foot (CMS/HCC) residential (current) use of anticoagulants Iron deficiency anemia [...] is significant for coronary artery disease with SAFETY PATROL 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 He was recently admitted to [facility] in August 2023 with acute respiratory failure [...] breath at rest. He recovered at the half-way facility but he is now back home. [...] distension. 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 failure w/hypoxia, acute on systolic chronic HF Medical History [facility]- r ight great toe bleeding (not stopping) Medical History pneumonia-[facility] 06-05 Medical History [facility]-7-2023 Medical History [id number]-[facility] Surgical History Cardiac catherization (07/2010) Surgical History [...] Hospitalization History rt. heart cath Rex Stout- [facility] 05/11/16 Hospitalization History [facility] 02/2017 Hospitalization History [facility] pital 11/2017 Hospitalization History INFECTION IN LEFT SMALL TOE AND FOOT 11/2018 Hospitalization History [facility] -- ICU -- COPD, SMAL L WOUND ON LEFT FOOT 12/2019 Hospitalization History COPD [facility] [place] 12/2019 Hospitalization History Ankle wound 01/2020 Hospitalization History COVID 11/2020 Hospitalization History A-FIB, CHF, KIDNEY ISSUE S 03/2021 Hospitalization History [facility] 01/2023 Hospitalization History [facility] discha rged 03-27-2023 Hospitalization History [facility] x2 [phone] Hospitalization History [facility] 10-2 023 [facility] [employer] Other 10-31-2023 Evaluation note* Encounter Date Diagnosis [...] (hypertension) (ICD-10 - I10) reasonable today Aug, residential current use of insulin (ICD-10 - Z79.4) Aug, Vitamin B 12 deficiency (ICD-10 - E53.8) Aug, CKD (chronic kidney disease) stage 3, GFR 30-59 ml/min (ICD-10 - N18.3) keep f/u with nephrology Aug, Type 2 diabetes mellitus with diabetic neuropathy, unspecified (ICD-10 - E11.40) Aug, BMI 32.0-32.9,adult (ICD-10 - Z68.32) [employer] Other 10-31-2023 History general Narrative - Reported* [...] Medical History [facility] Medical History 04/28/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 failure w/hypoxia, acute on systolic chronic HF Medical History [facility]- r ight great toe bleeding (not stopping) Medical History pneumonia-[facility] 06-05 Medical History [facility]-7-2023 Medical History [id number]-[facility] Surgical History Cardiac catherization (07/2010) Surgical History AICD insertion (11/2010) Surgical History right sided heart cath - [place] 10/2013 Surgical History appendectomy Surgical History rt [...] Hospitalization History rt. heart cath Rex Stout- [facility] 05/11/16 Hospitalization History [facility] 02/2017 Hospitalization History [facility] 11/2017 Hospitalization History INFECTION IN LEFT SMALL TOE AND FOOT 11/2018 Hospitalization History [facility] -- ICU -- COPD, SMAL L WOUND ON LEFT FOOT 12/2019 Hospitalization History COPD [facility] [place] 12/2019 Hospitalization History Ankle wound 01/2020 Hospitalization History COVID 11/2020 Hospitalization History A-FIB, CHF, KIDNEY ISSUE S 03/2021 Hospitalization History [facility] 01/2023 Hospitalization History [facility] discha rged 03-27-2023 Hospitalization History [facility] x2 7-2 023 Hospitalization History 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 failure w/hypoxia, acute on systolic chronic HF Medical History [facility]- r ight great toe bleeding (not stopping) Medical History pneumonia-[facility] 06-05 Medical History [facility]-7-2023 Surgical History Cardiac catherization (07/2010) Surgical [...] Hospitalization History rt. heart cath Rex Stout- [facility] 05/11/16 Hospitalization History [facility] 02/2017 Hospitalization History [facility]me 11/2017 Hospitalization History INFECTION IN LEFT SMALL TOE AND FOOT 11/2018 Hospitalization History [facility] -- ICU -- COPD, SMAL L WOUND ON LEFT FOOT 12/2019 Hospitalization History COPD [facility] [place] 12/2019 Hospitalization History Ankle wound 01/2020 Hospitalization History COVID 11/2020 Hospitalization History A-FIB, CHF, KIDNEY ISSUE S 03/2021 Hospitalization History [facility] 01/2023 Hospitalization History [facility] discha rged 03-27-2023 Hospitalization History [facility] x2 [phone] [employer] Other 10-12-2023 History general Narrative - Reported* [...] Medical History [facility] Medical History 04/28/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 failure w/hypoxia, acute on systolic chronic HF Medical History [facility]- r ight great toe bleeding (not stopping) Medical History pneumonia-[facility] 06-05 Medical History [facility]-7-2023 Surgical History Cardiac catherization (07/2010) Surgical History AICD insertion (11/2010) Surgical History right sided heart cath - [place] 10/2013 Surgical History appendectomy Surgical History rt [...] Hospitalization History rt. heart cath Rex Stout- [facility] 05/11/16 Hospitalization History [facility] 02/2017 Hospitalization History [facility] 11/2017 Hospitalization History INFECTION IN LEFT SMALL TOE AND FOOT 11/2018 Hospitalization History [facility] -- ICU -- COPD, SMAL L WOUND ON LEFT FOOT 12/2019 Hospitalization History COPD [facility] [place] 12/2019 Hospitalization History Ankle wound 01/2020 Hospitalization History COVID 11/2020 Hospitalization History A-FIB, CHF, KIDNEY ISSUE S 03/2021 Hospitalization History [facility] 01/2023 Hospitalization History [facility] discha rged 03-27-2023 Hospitalization History [facility] x2 [phone] [employer] Other 10-05[facility] NotePatient here for follow up [facility] [...] weakness. All other systems reviewed and are negative.[facility] 08-23-2023 [facility]Card[facility] SUB[facility]IVE Chief Complaint Patient presents with Wheezing Hospital Follow-up Adwoa Porter is a 68 y.o. male here for follow-up. Congestive Heart Failure His past medical history is significant for CAD. Coronary Artery Disease His past medical history is significant for CHF. Adwoa Porter is a 67 y.o. male with complex cardiac history including coronary artery disease (SAFETY PATROL OFFICER of RCA and otherwise mild to mod disease on 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 Patient here for follow up [facility] discharge yesterday for HFrEF. His girlfriend called the office yesterday when he was being discharged to make us aware that he's still very swollen and SOB. He is down 12# from his office visit last week with Cecile Watson. Patient is c/o wheezing and is requesting something for cough. 08/23/2023 He was recently admitted to [facility] for acute on chronic HFrEF exacerbation [...] Atrial fibrillation (CMS/HCC) Chronic obstructive lung disease ([facility]/HCC) Chronic systolic congestive heart failure ([facility]/HCC) Conduction disorder of the heart Atherosclerosis of [place] coronary artery of [place] heart without angina pectoris Type 2 diabetes [...] ISAK on CPAP PVD (peripheral vascular disease) ([facility]/HCC) Osteomyelitis of left foot (CMS/HCC) Open wound of finger Cellulitis of left upper extremity Abdominal tenderness Acute on chronic respiratory failure ([facility]/HCC) Benign prostatic hyperplasia with urinary obstruction Cardiomyopathy, ischemic Former smoker Heart murmur Incomplete emptying of bladder Increased frequency of urination Nocturia Urethral stricture Urge incontinence of urine Urinary urgency Type 2 diabetes mellitus without complication ([facility]/HCC) Bilateral lower extremity edema Abrasion of leg, right Acute worsening of stage 3 chronic kidney disease ([facility]/HCC) Bleeding disorder ([facility]/HCC) Anemia of chronic renal failure Chronic ulcer of great toe of right foot with fat layer exposed ([facility]/HCC) Diabetes mellitus ([facility]) Essential hypertension History of amputation of left great toe ([facility]) History of amputation of lesser toe of left foot ([facility]/HCC) 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 Iron deficiency anemia Hyperglycemia due to type 2 diabetes mellitus ([facility]/HCC) Past Medical History: Diagnosis Date Anxiety Atrial fibrillation ([facility]) Cardiomyopathy ([facility]) CHF (congestive heart failure) ([facility]) Chronic kidney disease COPD (chronic obstructive pulmonary disease) ([facility]) Coronary artery disease Diabetes mellitus ([facility]) High cholesterol Hyperlipidemia Hypertension Family History [...] (5' 9 ) Wt (more content not included)...[facility]10-05-2023 Evaluation note* Encounter Date Diagnosis Assessment Notes Treatment Notes Treatment Clinical Notes Aug, Facet arthritis of lumbar region (ICD-10 - M46.96) [employer] Other 09-27-2023 NoteCurrently stable*[facility]09-27-2023 NoteSending for labs today and pt to f/U with Dr Orr as scheduledUnC[facility]innati [facility]09-27-2023 NoteNYHC- III Continue GDMT- ASA, lipitor, [...] bmp and BNP F/U with nephrology as scheduledUnC[facility]09-27-2023 NoteContinue Coreg- currently stable and no concerning symptomsUnCincinnati [facility]09-27-2023 NoteUTP CARDIOLOGY PROGRESS NOTE HPI: Adwoa [...] to afford Farxiga. He was admitted to [facility] last week for hemoptysis. This has [...] reviewed and are negative. Recent eval in [facility] ED 07/31/23 Visit Vitals BP 121/79 [...] with lunch, and with evening meal. HYDROcodone-acetaminophen ([place]) 5-325 mg tablet Take 1 tablet by [...] Pulmonary: Effort: Pulmonary effo (more content not included)...[facility]09-27-2023 NotePatient here for follow up lasix increase. Dr. Stout increased it to 140mg bid a few days ago. He has taken 3 doses of this so far and feels so much better. He is unable to afford Farxiga. He was admitted to [facility] last week for hemoptysis. This has [...] weakness. 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 failure w/hypoxia, acute on systolic chronic HF Medical History [facility]- r ight great toe bleeding (not stopping) Medical History pneumonia-[facility] 06-05 Medical History [facility]-7-2023 Surgical History Cardiac catherization (07/2010) Surgical History AICD insertion (11/2010) Surgical History right sided heart cath - [place] 10/2013 Surgical History appendectomy Surgical History rt [...] Hospitalization History rt. heart cath Rex Stout- [facility] 05/11/16 Hospitalization History [facility] 02/2017 Hospitalization History [facility] 11/2017 Hospitalization History INFECTION IN LEFT SMALL TOE AND FOOT 11/2018 Hospitalization History [facility] -- ICU -- COPD, SMAL L WOUND ON LEFT FOOT 12/2019 Hospitalization History COPD [facility] [place] 12/2019 Hospitalization History Ankle wound 01/2020 Hospitalization History COVID 11/2020 Hospitalization History A-FIB, CHF, KIDNEY ISSUE S 03/2021 Hospitalization History [facility] 01/2023 Hospitalization History [facility] discha rged 03-27-2023 Hospitalization History [facility] x2 7-2 [phone] [employer] Other 09-08-2023 Evaluation note* Encounter Date Diagnosis Assessment Notes Treatment Notes Treatment Clinical Notes Jul, Acute cough (ICD-10 - R05.1) [employer] Other 09-08-2023 History general Narrative - Reported* [...] Medical History [facility] Medical History 04/28/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 failure w/hypoxia, acute on systolic chronic HF Medical History [facility]- r ight great toe bleeding (not stopping) Medical History pneumonia-[facility] - Medical History [facility]-7-2023 Surgical History Cardiac catherization (07/2010) Surgical History AICD insertion (11/2010) Surgical History right sided heart cath - [place] 10/2013 Surgical History appendectomy Surgical History rt [...] Hospitalization History rt. heart cath Rex Stout- [facility] 05/11/16 Hospitalization History [facility] 02/2017 Hospitalization History [facility]me 11/2017 Hospitalization History INFECTION IN LEFT SMALL TOE AND FOOT 11/2018 Hospitalization History [facility] -- ICU -- COPD, SMAL L WOUND ON LEFT FOOT 12/2019 Hospitalization History COPD [facility] [place] 12/2019 Hospitalization History Ankle wound 01/2020 Hospitalization History COVID 11/2020 Hospitalization History A-FIB, CHF, KIDNEY ISSUE S 03/2021 Hospitalization History [facility] 01/2023 Hospitalization History [facility] discha rged 03-27-2023 Hospitalization History [facility] x2 7-2 [phone] [employer] Other 09-01-2023 Evaluation note* Encounter Date Diagnosis Assessment Notes Treatment Notes Treatment Clinical Notes Jul, Facet arthritis of lumbar region (ICD-10 - M46.96) [employer] Other 09-01-2023 History general Narrative - Reported* [...] Medical History [facility] Medical History 04/28/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 failure w/hypoxia, acute on systolic chronic HF Medical History [facility]- r ight great toe bleeding (not stopping) Medical History pneumonia-[facility] 06-05 Medical History [facility]-7-2023 Surgical History Cardiac catherization (07/2010) Surgical [...] Hospitalization History rt. heart cath Rex Stout- [facility] 05/11/16 Hospitalization History [facility] 02/2017 Hospitalization History [facility] pital 11/2017 Hospitalization History INFECTION IN LEFT SMALL TOE AND FOOT 11/2018 Hospitalization History [facility] -- ICU -- COPD, SMAL L WOUND ON LEFT FOOT 12/2019 Hospitalization History COPD [facility] [place] 12/2019 Hospitalization History Ankle wound 01/2020 Hospitalization History COVID 11/2020 Hospitalization History A-FIB, CHF, KIDNEY ISSUE S 03/2021 Hospitalization History [facility] 01/2023 Hospitalization History [facility] discha rged 03-27-2023 Hospitalization History [facility] x2 7-2 023 [employer] Other 08-31-2023 Evaluation note* Encounter Date Diagnosis Assessment Notes Treatment Notes Treatment Clinical Notes Jun, Chronic systolic congestive heart failure (ICD-10 - I50.22) [employer] Other 08-24-2023 History general Narrative - Reported* [...] Medical History V[facility]IGO Medical History 04/28/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 failure w/hypoxia, acute on systolic chronic HF Medical History [facility]- r ight great toe bleeding (not stopping) Medical History pneumonia-[facility] 06-05 Medical History [facility]-7-2023 Surgical History Cardiac catherization (07/2010) Surgical History AICD insertion (11/2010) Surgical History right sided heart cath - [place] 10/2013 Surgical History appendectomy Surgical History rt [...] Hospitalization History rt. heart cath Rex Stout- [facility] 05/11/16 Hospitalization History [facility] 02/2017 Hospitalization History [facility] 11/2017 Hospitalization History INFECTION IN LEFT SMALL TOE AND FOOT 11/2018 Hospitalization History [facility] -- ICU -- COPD, SMAL L WOUND ON LEFT FOOT 12/2019 Hospitalization History COPD [facility] [place] 12/2019 Hospitalization History Ankle wound 01/2020 Hospitalization History COVID 11/2020 Hospitalization History A-FIB, CHF, KIDNEY ISSUE S 03/2021 Hospitalization History [facility] 01/2023 Hospitalization History [facility] discha rged 03-27-2023 Hospitalization History [facility] x2 7-2 023 [employer] Other 08-11-2023 Evaluation note* Encounter Date Diagnosis [...] of this is related to diabetic neuropathy [employer] Other 08-11-2023 Evaluation note* Encounter Date Diagnosis [...] no refills PAP will need review 09/2023. 11 Jun, 2023 Dietary counseling and surveillance (ICD-10 - Z71.3) [employer] material was published to portal Jun, Hyperlipidemia (ICD-10 - E78.5) needs lipid panel- Jun, HTN (hypertension) (ICD-10 - I10) reasonable today Jun, residential current use of insulin (ICD-10 - Z79.4) Jun, Vitamin B 12 deficiency (ICD-10 - E53.8) Jun, CKD (chronic kidney disease) stage 3, GFR 30-59 ml/min (ICD-10 - N18.3) keep f/u with nephrology Jun, Type 2 diabetes mellitus with diabetic neuropathy, unspecified (ICD-10 - E11.40) Jun, BMI 32.0-32.9,adult (ICD-10 - Z68.32) [employer] Other 08-11-2023 History general Narrative - Reported* [...] Medical History [facility]IG[facility] Medical History 04/28/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 failure w/hypoxia, acute on systolic chronic HF Medical History [facility]- r ight great toe bleeding (not stopping) 5-2023 Medical History pneumonia-[facility] 06-05 Medical History [facility]-7-2023 Surgical History Cardiac catherization (07/2010) Surgical History AICD insertion (11/2010) Surgical History right sided heart cath - [place] 10/2013 Surgical History appendectomy Surgical History rt [...] Hospitalization History rt. heart cath Rex Stout- [facility] 05/11/16 [facility] 11/2017 Hospitalization History INFECTION IN LEFT SMALL TOE AND FOOT 11/2018 Hospitalization History [facility] -- ICU -- COPD, SMAL L WOUND ON LEFT FOOT 12/2019 Hospitalization History COPD [facility] [place] 12/2019 Hospitalization History Ankle wound 01/2020 Hospitalization History COVID 11/2020 Hospitalization History A-FIB, CHF, KIDNEY ISSUE S 03/2021 Hospitalization History [facility] 01/2023 Hospitalization History [facility] discha rged 03-27-2023 Hospitalization History [facility] [id number] [phone] [employer] Other 07-31-2023 Evaluation note* Encounter Date Diagnosis [...] not be able to stay at home [employer] Other 07-31-2023 History general Narrative - Reported* [...] Medical History [facility] Medical History 04/28/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 failure w/hypoxia, acute on systolic chronic HF Medical History [facility]- r ight great toe bleeding [...] Hospitalization History rt. heart cath Rex Stout- [facility] 05/11/16 Hospitalization History [facility] 02/2017 Hospitalization History [facility] pital 11/2017 Hospitalization History INFECTION IN LEFT SMALL TOE AND FOOT 11/2018 Hospitalization History [facility] -- ICU -- COPD, SMAL L WOUND ON LEFT FOOT 12/2019 Hospitalization History COPD [facility] [place] 12/2019 Hospitalization History Ankle wound 01/2020 Hospitalization History COVID 11/2020 Hospitalization History A-FIB, CHF, KIDNEY ISSUE S 03/2021 Hospitalization History [facility] 01/2023 Hospitalization History [facility] discha rged 03-27-2023 [employer] Other 07-18-2023 NoteUT Cardiology - [facility] Clinic Subjective Adwoa Porter is a 67 y.o. year old male patient being seen for Follow-up Patient Active Problem List Diagnosis Anxiety state Atrial fibrillation (CMS/HCC) Chronic obstructive lung disease (CMS/HCC) Chronic systolic congestive heart failure (CMS/HCC) Conduction disorder of the heart Atherosclerosis of [place] coronary artery of [place] heart without angina pectoris Type 2 diabetes [...] in follow-up after recent admission to the [facility] with decompensated heart failure. He [...] is significant for coronary artery disease with SAFETY PATROL OFFICER of the RCA and mild to [...] with us he was admitted to the [facility] twice with decompensated heart failure. 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 failure w/hypoxia, acute on systolic chronic HF Medical History [facility]- r ight great toe bleeding [...] Hospitalization History rt. heart cath Rex Stout- [facility] 05/11/16 Hospital[facility] History [facility] 02[facility] Hospitalization History [facility] 11/2017 Hospitalization History INFECTION IN LEFT SMALL TOE AND FOOT 11/2018 Hospitalization History [facility] -- ICU -- COPD, SMAL L WOUND ON LEFT FOOT 12/2019 Hospitalization History COPD [facility] [place] 12/2019 Hospitalization History Ankle wound 01/2020 Hospitalization History COVID 11/2020 Hospitalization History A-FIB, CHF, KIDNEY ISSUE S 03/2021 Hospitalization History [facility] 01/2023 Hospitalization History [facility] discha rged 03-27-2023 [employer] Other 2023 History general Narrative - Reported* [...] Medical History [facility] Medical History 04/28/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 failure w/hypoxia, acute on systolic chronic HF Medical History [facility]- r ight great toe bleeding [...] Hospitalization History rt. heart cath Rex Stout- [facility] 05/11/16 Hospitalization History [facility] 02/2017 Hospitalization History [facility] 11/2017 Hospitalization History INFECTION IN LEFT SMALL TOE AND FOOT 11/2018 Hospitalization History [facility] -- ICU -- COPD, SMAL L WOUND ON LEFT FOOT 12/2019 Hospitalization History COPD [facility] [place] 12/2019 Hospitalization History Ankle wound 01/2020 Hospitalization History COVID 11/2020 Hospitalization History A-FIB, CHF, KIDNEY ISSUE S 03/2021 Hospitalization History [facility] 01/2023 Hospitalization History [facility] discha rged 03-27-2023 [employer] Other 06-14-2023 Evaluation note* Encounter Date Diagnosis [...] sensors on. He was given 6 grif counter dish carrier to assist him with wearing the device. 45 minutes were spent evaluating the patient's report and discussing its findings with the patient by Shaw Rondon RN, [facility]. [employer] Other 06-01-2023 Evaluation note* Encounter Date Diagnosis [...] leukocytosis and currently follows with a hematology. [employer] Other 06-01-2023 Evaluation note* Encounter Date Diagnosis [...] understanding and is agreeable with treatment plan. 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 heart cath Rex Stout- [facility] 05/11/16 Hospitalization History [facility] 02/2017 Hospitalization History [facility] 11/2017 Hospitalization History INFECTION IN LEFT SMALL TOE AND FOOT 11/2018 Hospitalization History [facility] -- ICU -- COPD, SMAL L WOUND ON LEFT FOOT 12/2019 Hospitalization History COPD [facility] [place] 12/2019 Hospitalization History Ankle wound 01/2020 Hospitalization History COVID 11/2020 Hospitalization History A-FIB, CHF, KIDNEY ISSUE S 03/2021 Hospitalization History [facility] 01/2023 [employer] Other 05-03-2023 NoteCardiology Clinic Note Subjective Adwoa [...] Conduction disorder of the heart Atherosclerosis of [place] coronary artery of [place] heart without angina pectoris Type 2 diabetes [...] in follow-up after recent admission to the [facility] with decompensated heart failure. He [...] is significant for coronary artery disease with SAFETY PATROL OFFICER of the RCA and mild to [...] tablet, Rfl: 2 digoxin (more content not included)...[facility] 03-21-2023 NotePatient here for 6 week [...] weakness. 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 heart cath Rex Stout- [facility] 05/11/16 Hospitalization History [facility] 02/2017 Hospitalization History [facility] 11/2017 Hospitalization History INFECTION IN LEFT SMALL TOE AND FOOT 11/2018 Hospitalization History [facility] -- ICU -- COPD, SMAL L WOUND ON LEFT FOOT 12/2019 Hospitalization History COPD [facility] [place] 12/2019 Hospitalization History Ankle wound 01/2020 Hospitalization History COVID 11/2020 Hospitalization History A-FIB, CHF, KIDNEY ISSUE S 03/2021 Hospitalization History [facility] 01/2023 [employer] Other 05-01-2023 Evaluation note* Encounter Date Diagnosis Assessment Notes Treatment Notes Treatment Clinical Notes March, Facet arthritis of lumbar region (ICD-10 - M46.96) [employer] Other 05-01-2023 History general Narrative - Reported* [...] Medical History V[facility]IGO Medical History 04/28/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 heart cath Rex Stout- [facility] 05/11/16 Hospitalization History [facility] 02/2017 Hospitalization History [facility] 11/2017 Hospitalization History INFECTION IN LEFT SMALL TOE AND FOOT 11/2018 Hospitalization History [facility] -- ICU -- COPD, SMAL L WOUND ON LEFT FOOT 12/2019 Hospitalization History COPD [facility] [place] 12/2019 Hospitalization History Ankle wound 01/2020 Hospitalization History COVID 11/2020 Hospitalization History A-FIB, CHF, KIDNEY ISSUE S 03/2021 Hospitalization History [facility] 01/2023 [employer] Other 04-12-2023 History general Narrative - Reported* [...] Medical History V[facility]IGO Medical History 04/28/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 heart cath Rex Stout- [facility] 05/11/16 Hospitalization History [facility] 02/2017 Hospitalization History [facility] 11/2017 Hospitalization History INFECTION IN LEFT SMALL TOE AND FOOT 11/2018 Hospitalization History [facility] -- ICU -- COPD, SMAL L WOUND ON LEFT FOOT 12/2019 Hospitalization History COPD [facility] [place] 12/2019 Hospitalization History Ankle wound 01/2020 Hospitalization History COVID 11/2020 Hospitalization History A-FIB, CHF, KIDNEY ISSUE S 03/2021 Hospitalization History [facility] 01/2023 [employer] Other 04-11-2023 History general Narrative - Reported* [...] Medical History V[facility]IG[facility] Medical History 04/28/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 heart cath Rex Stout- [facility] 05/11/16 Hospitalization History [facility] 02/2017 [facility] 11[facility]2017 Hospitalization History INFECTION IN LEFT SMALL TOE AND FOOT 11/2018 Hospitalization History [facility] -- ICU -- COPD, SMAL L WOUND ON LEFT FOOT 12/2019 Hospitalization History COPD [facility] [place] 12/2019 Hospitalization History Ankle wound 01/2020 Hospitalization History COVID 11/2020 Hospitalization History A-FIB, CHF, KIDNEY ISSUE S 03/2021 Hospitalization History [facility] 01/2023 [employer] Other 04-05-2023 Evaluation note* Encounter Date Diagnosis [...] - N18.30) Feb, Hypokalemia (ICD-10 - E87.6) [employer] Other 03-24-2023 Evaluation note* Encounter Date Diagnosis [...] failure so a printed prescription was provided [employer] Other 03-13-2023 Note[facility] Cardiology - [facility] Subjective Adwoa Porter is a 67 y.o. year old male patient being seen for follow up [facility] for CHF. He is down 30# since last office visit on 01/05/2023. He is feeling much better since discharge. He is now taking metolazone once a week. Bumex was switched to furosemide. Patient Active Problem List Diagnosis Anxiety state Atrial fibrillation (CMS/HCC) Chronic obstructive lung disease (CMS/HCC) Chronic systolic congestive heart failure (CMS/HCC) Conduction disorder of the heart Atherosclerosis of [place] coronary artery of [place] heart without angina pectoris Type 2 diabetes [...] in follow-up after recent admission to the [facility] with decompensated heart failure. He [...] is significant for coronary artery disease with SAFETY PATROL OFFICER of the RCA and mild to [...] Reactions Lupis Inhibitors Medicatio (more content not included)...[facility] 01-17-2023 Evaluation note* Encounter Date Diagnosis [...] - M46.96) Continue current medication, OARRS reviewed [employer] Other 02-28-2023 Evaluation note* Encounter Date Diagnosis Assessment Notes Treatment Notes Treatment Clinical Notes Dec, Lumbar and sacral arthritis (ICD-10 - M48.9) [employer] Other 02-24-2023 History general Narrative - Reported* [...] Medical History VERTIGO Medical History 04/28/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 heart cath Rex Stout- [facility] 05/11/16 Hospitalization History [facility] 02/2017 Hospitalization History [facility] 11/2017 Hospitalization History INFECTION IN LEFT SMALL TOE AND FOOT 11/2018 Hospitalization History [facility] -- ICU -- COPD, SMAL L WOUND ON LEFT FOOT 12/2019 Hospitalization History COPD [facility] [place] 12/2019 Hospitalization History Ankle wound 01/2020 Hospitalization History COVID 11/2020 Hospitalization History A-FIB, CHF, KIDNEY ISSUE S 03/2021 [employer] Other 02-23-2023 History general Narrative - Reported* [...] Medical History V[facility]IGO Medical History 04/28/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 heart cath Rex Stout- [facility] 05/11/16 Hospitalization History [facility] 02/2017 Hospitalization History [facility] 11/2017 Hospitalization History INFECTION IN LEFT SMALL TOE AND FOOT 11/2018 Hospitalization History [facility] -- ICU -- COPD, SMAL L WOUND ON LEFT FOOT 12/2019 Hospitalization History COPD [facility] [place] 12/2019 Hospitalization History Ankle wound 01/2020 Hospitalization History COVID 11/2020 Hospitalization History A-FIB, CHF, KIDNEY ISSUE S 03/2021 [employer] Other 02-18-2023 History general Narrative - Reported* [...] Medical History VERTIGO Medical History 04/28/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 heart cath Rex Stout- [facility] 05/11/16 Hospitalization History [facility] 02/2017 Hospitalization History [facility] 11/2017 Hospitalization History INFECTION IN LEFT SMALL TOE AND FOOT 11/2018 Hospitalization History [facility] -- ICU -- COPD, SMAL L WOUND ON LEFT FOOT 12/2019 Hospitalization History COPD [facility] [place] 12/2019 Hospitalization History Ankle wound 01/2020 Hospitalization History COVID 11/2020 Hospitalization History A-FIB, CHF, KIDNEY ISSUE S 03/2021 [employer] Other 02-13-2023 History general Narrative - Reported* [...] Medical History VERTIGO Medical History 04/28/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 heart cath Rex Stout- [facility] 05/11/16 Hospitalization History [facility] 02/2017 Hospitalization History [facility] 11/2017 Hospitalization History INFECTION IN LEFT SMALL TOE AND FOOT 11/2018 Hospitalization History [facility] -- ICU -- COPD, SMAL L WOUND ON LEFT FOOT 12/2019 Hospitalization History COPD [facility] [place] 12/2019 Hospitalization History Ankle wound 01/2020 Hospitalization History COVID 11/2020 Hospitalization History A-FIB, CHF, KIDNEY ISSUE S 03/2021 [employer] Other 02-12-2023 History general Narrative - Reported* [...] Medical History VERTIGO Medical History 04/28/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 heart cath Rex Stout- [facility] 05/11/16 Hospitalization History [facility] 02/2017 Hospitalization History [facility] 11/2017 Hospitalization History INFECTION IN LEFT SMALL TOE AND FOOT 11/2018 Hospitalization History [facility] -- ICU -- COPD, SMAL L WOUND ON LEFT FOOT 12/2019 Hospitalization History COPD [facility] [place] 12/2019 Hospitalization History Ankle wound 01/2020 Hospitalization History COVID 11/2020 Hospitalization History A-FIB, CHF, KIDNEY ISSUE S 03/2021 [employer] Other 01-24-2023 Evaluation note* Encounter Date Diagnosis [...] findings with him by Shaw Rondon RN, [facility]. [employer] Other 01-23-2023 Reason for referral (narrative)* Reason 12/11/22 @ [facility] to [facility] per patient request Diagnosis 1 COPD (chronic obstru ctive pulmonary disease) (J44.9) Diagnosis 2 Athscl heart disease of [place] coronary artery w/o ang pctrs (I25.10) Diagnosis 3 Unspecified systolic (congestive) heart failure (I50.20) Referral Organization [facility] [address] Referring Provider First Name Vinnie Referring Provider Last Name Osvaldo Referring Provider Specialty Family [facility] yamil Referred Organization [facility] Referred Address [address] [place],[address] Referred Provider Specialty Hospice and Palliative Medicine Referral Priority Routine Referral Appointment Date 2022-12-11 General Notes Doris Modi 09:13:40 AM >referral received and faxed. appt scheduled for 11:00am today. Doris Modi 12/13/2022 12:20:16 PM >faxed letter to obtain consult note Doris Modi 12/14/2022 07:21:24 AM >received VM from maril[facility] at [facility], she stated they saw pt, however; he told them he was not ready for comfort care and therefore did not sign on with hospice. 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 discussion and merck handout on hypoglycemia and treament. 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 heart cath Rex Stuot- [facility] 05/11/16 [facility] 11/2017 Hospitalization History INFECTION IN LEFT SMALL TOE AND FOOT 11/2018 Hospitalization History [facility] -- ICU -- COPD, SMAL L WOUND ON LEFT FOOT 12/2019 Hospitalization History COPD [facility] 12/2019 Hospitalization History Ankle wound 01/2020 Hospitalization History COVID 11/2020 Hospitalization History A-FIB, CHF, KIDNEY ISSUE S 03/2021 [employer] Other 11-10-2022 Evaluation note* Encounter Date Diagnosis [...] the goal and has adequate [employer] stores [employer] Other 11-10-2022 Evaluation note* Encounter Date Diagnosis [...] do not pop blisters. 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 S/sx of infection reviewed, if occur follow up right away with PCP, UC or ER. 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 heart cath Rex Stout- [facility] 05/11/16 Hospitalization [facility] 02[facility]2017 Hospitalization History [facility] 11/2017 Hospitalization History INFECTION IN LEFT SMALL TOE AND FOOT 11/2018 Hospitalization History [facility] -- ICU -- COPD, SMAL L WOUND ON LEFT FOOT 12/2019 Hospitalization History COPD [facility] 12/2019 Hospitalization History Ankle wound 01/2020 Hospitalization History COVID 11/2020 Hospitalization History A-FIB, CHF, KIDNEY ISSUE S 03/2021 [employer] Other 10-26-2022 Evaluation note* Encounter Date Diagnosis [...] any worsening erythema, or with other concerns. 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 heart cath Rex Stout- [facility] 05/11/16 Hospitalization History [facility] 02/2017 Hospitalization History [facility] 11/2017 Hospitalization History INFECTION IN LEFT SMALL TOE AND FOOT 11/2018 Hospitalization History [facility] -- ICU -- COPD, SMAL L WOUND ON LEFT FOOT 12/2019 Hospitalization History COPD [facility] 12/2019 Hospitalization History Ankle wound 01/2020 Hospitalization History COVID 11/2020 Hospitalization History A-FIB, CHF, KIDNEY ISSUE S 03/2021 [employer] Other 10-21-2022 Evaluation note* Encounter Date Diagnosis Assessment Notes Treatment Notes Treatment Clinical Notes Aug, Lumbar and sacral arthritis (ICD-10 - M48.9) [employer] Other 10-03-2022 History general Narrative - Reported* [...] Hospitalization History rt. heart cath Rex Stout- [facility] 05/11/16 Hospitalization History [facility] 02/2017 Hospitalization History [facility] 11/2017 Hospitalization History INFECTION IN LEFT SMALL TOE AND FOOT 11/2018 Hospitalization History [facility] -- ICU -- COPD, SMAL L WOUND ON LEFT FOOT 12/2019 Hospitalization History COPD [facility] [place] 12/2019 Hospitalization History Ankle wound 01/2020 Hospitalization History COVID 11/2020 Hospitalization History A-FIB, CHF, KIDNEY ISSUE S 03/2021 [employer] Other 09-12-2022 Evaluation note* Encounter Date Diagnosis [...] - I10) f/u with pcp 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 discussion and merck handout on hypoglycemia and treament. [employer] Other 08-04-2022 History general Narrative - Reported* [...] Hospitalization History rt. heart cath Rex Stout- [facility] 05/11/16 Hospitalization History [facility] 02/2017 Hospitalization History [facility] 11/2017 Hospitalization History INFECTION IN LEFT SMALL TOE AND FOOT 11/2018 Hospitalization History [facility] -- ICU -- COPD, SMAL L WOUND ON LEFT FOOT 12/2019 Hospitalization History COPD [facility] 12/2019 Hospitalization History Ankle wound 01/2020 Hospitalization History COVID 11/2020 Hospitalization History A-FIB, CHF, KIDNEY ISSUE S 03/2021 [employer] Other 08-02-2022 Evaluation note* Encounter Date Diagnosis Assessment Notes Treatment Notes Treatment Clinical Notes Jun, Community acquired pneumonia, unspecified laterality (ICD-10 - J18.9) He will complete the antibiotics and call with any worsening symptoms. I also advised him to call with any worsening diarrhea Jun, COPD (chronic obstructive pulmonary disease) (ICD-10 - J44.9) [employer] Other 08-02-2022 History general Narrative - Reported* [...] hx [facility] Hospitalization History [facility] 11/2017 Hospitalization History INFECTION IN LEFT SMALL TOE AND FOOT 11/2018 Hospitalization History [facility] -- ICU -- COPD, SMAL L WOUND ON LEFT FOOT 12/2019 Hospitalization History COPD [facility] [place] 12/2019 Hospitalization History Ankle wound 01/2020 Hospitalization History COVID 11/2020 Hospitalization History A-FIB, CHF, KIDNEY ISSUE S 03/2021 [employer] Other 07-27-2022 Progress note Author Ethan Cummings [facility] June 13, 2022 10:16pm Note Date/Time June 06, 2022 11:5 4am [facility] at [address] [address] Hem/Onc Follow Up Note - OP Signed Patient: Adwoa Porter MR#: [id number] : 1955 Acct:[id number] Age/Sex: 66 / M Type: REG RCR [...] hs BCR/ABL was negative. Recent hospitalization at [place] for COVID PNA. He had also a [...] for coordination of care (as documented) and egce-pt-tnan counseling of patient and/or family. [facility] - Medical History Medical History: [...] by Ethan Cummings II, DO> 06/13/22 2216 [facility] Work Phone: 1(445) 468-899006-28-2022 History general Narrative - Reported* Type Description [...] Hospitalization History rt. heart cath Rex Stout- [facility] 05/11/16 [facility] Hospital[facility] 11/2017 Hospitalization History INFECTION IN LEFT SMALL TOE AND FOOT 11/2018 Hospitalization History [facility] -- ICU -- COPD, SMAL L WOUND ON LEFT FOOT 12/2019 Hospitalization History COPD [facility] 12/2019 Hospitalization History Ankle wound 01/2020 Hospitalization History COVID 11/2020 Hospitalization History A-FIB, CHF, KIDNEY ISSUE S 03/2021 [employer] Other 06-08-2022 Evaluation note* Encounter Date Diagnosis Assessment Notes Treatment Notes Treatment Clinical Notes 08 Valerio, 2022 Type 2 diabetes mellitus with hyperglycemia (ICD-10 - E11.65) [employer] Other 06-06-2022 Evaluation note* Encounter Date Diagnosis Assessment Notes Treatment Notes Treatment Clinical Notes Apr, Acute on chronic systolic congestive heart failure (ICD-10 - I50.23) [employer] Other 05-23-2022 Progress note Author Ethan Cummings [facility] April 10, 2022 3:31pm Note Date/Time April 10, 2022 2:42p m [facility] [place] [address] Hem/Onc Follow Up Note - OP Signed Patient: Adwoa Porter MR#: [id number] : 1955 Acct:[id number] Age/Sex: 66 / M Type: REG RCR [...] for coordination of care (as documented) and laio-fi-snay counseling of patient and/or family. 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 Follow up with your primary care physciain tomorrow for further testing. Go to the ER for worsening symptoms or concerns. [employer] Other 03-22-2022 Evaluation note* Encounter Date Diagnosis [...] overload caused by recurring apneas are controlled. [employer] Other 02-23-2022 Evaluation note* Encounter Date Diagnosis [...] (ICD-10 - I10) f/u with pcp Dec, residential current use of insulin (ICD-10 - Z79.4) Dec, Vitamin B 12 deficiency (ICD-10 - E53.8) Dec, CKD (chronic kidney disease) stage 3, GFR 30-59 ml/min (ICD-10 - N18.3) keep f/u with nephrology Dec, Type 2 diabetes mellitus with diabetic neuropathy, unspecified (ICD-10 - E11.40) Dec, Hypoglycemia (ICD-10 - E16.2) BENEFIT FROM LIBRE2 with alarms, ordered thru [employer]. discussion and merck handout on hypoglycemia and treament. Dec, BMI 35.0-35.9,adult (ICD-10 - Z68.35) Dec, Other I have spent 30 minutes with this patient and over 50% of the visit was counseling done by myself, Tyesha JUDD. [employer] Other 01-10-2022 Evaluation note* Encounter Date Diagnosis Assessment Notes Treatment Notes Treatment Clinical Notes Nov, Type 2 diabetes mellitus with hyperglycemia (ICD-10 - E11.65) [employer] Other 12-29-2021 Evaluation note* Encounter Date Diagnosis [...] (ICD-10 - I10) f/u with pcp Oct, residential current use of insulin (ICD-10 - Z79.4) Oct, Vitamin B 12 deficiency (ICD-10 - E53.8) Oct, CKD (chronic kidney disease) stage 3, GFR 30-59 ml/min (ICD-10 - N18.3) keep f/u with nephrology Oct, Type 2 diabetes mellitus with diabetic neuropathy, unspecified (ICD-10 - E11.40) Oct, Hypoglycemia (ICD-10 - E16.2) BENEFIT FROM LIBRE2 with alarms, ordered thru [employer] discussion and [employer] handout on hypoglycemia and treament. Oct, BMI 35.0-35.9,adult (ICD-10 - Z68.35) Oct, Other I have spent 30 minutes with this patient and over 50% of the visit was counseling done by myself, Tyesha JUDD. [employer] Other 11-17-2021 Evaluation note* Encounter Date Diagnosis [...] (ICD-10 - I10) f/u with pcp Sep, residential current use of insulin (ICD-10 - Z79.4) [...] FROM LIBRE2 with alarms, ordered thru [employer]. discussion and [employer]ck handout on hypoglycemia and treament. Sep, BMI 35.0-35.9,adult (ICD-10 - Z68.35) Sep, Other I have spent 60 minutes with this patient and over 50% of the visit was counseling done by myself, Tyesha JUDD. transitioned to Ozempic from Trulicity for added weight loss benefit, increased glycemic control [employer] Other 11-08-2021 Evaluation note* Encounter Date Diagnosis [...] include pain management referral or physical therapy [employer] Other 05-31-2021 NoteMR#: [id number] I [facility] Pt. Name: Adwoa Porter Admitted: 04/12/2021 Discharged: 04/17/2021 Date of : 1955 Physician: Balbir Stubbs MD DISCHARGE SUMMARY PRINCIPAL DISCHARGE DIAGNOSES: 1. Kwhir-fd-pbcossm heart failure with reduced ejection fraction. 2. [...] heart failure. The patient was transferred to [facility] on a bumetanide infusion. He [...] If strongly occurs, follow up with his emergency medical services coordinator as soon as possible. 3. The patient was strongly encouraged to consider acute rehab, however, he declined and insisted on returning to home. Total time spent on discharge coordination 45 minutes. Electronically Signed by: Balbir Stubbs MD 04/27/2021 01:19 P Balbir Stubbs MD Date Dict: 04/17/2021/03:44 P/Balbir Stubbs MD Date Trans: 04/18/2021 12:53 A/mmo [id number] cc: Vinnie Stewart M.D. [facility] [address] [facility] [address] Lowell Craft M.D. [address] [facility] [address] NorthDis[facility] summary Author Yakov To [facility] February 15, 2023 2:13pm Note Date/Time February 15, 2023 2:1 3pm [facility] [address] [place] [address] Discharge Summary Signed Patient: Adwoa Porter MR#: [id number] : 1955 Acct:[id number] Age/Sex: 67 / M Adm Date: 3 Loc: Room: [address] [place] [address]: Yakov To DO Copies to: [...] blood sugars and low potassium by his emergency medical services coordinator. Upon arrival to the hospital his blood [...] signed by Yakov To DO> 02/15/23 1413 [facility] Work Phone: Discharge summary Author Swathi Burnham [facility] February 07, 2024 6:54pm Note Date/Time February 07, 2024 6:5 4pm [facility] [address] [place] [address] Discharge Summary Signed Patient: Adwoa Porter MR#: [id number] : 1955 Acct:[id number] Age/Sex: 68 / M Adm Date: 4 Loc: Room: [address] [place] [address]: Swathi Burnham MD Copies to: MD Vinnie Lopez, ~ Providers Date of Discharge: 02/07/24 Discharging Provider: [...] Provider Been Notified: Yes Date of Notification: 03/13/24 Time of Notification: 14:47 02/04/24 11:26 Consult [...] medical problems, who was recently hospitalized at [facility] and discharged on January 22 to halfway care facility after being treated for septic shock secondary to cellulitis and left foot ulcer. Patient was discharged on IV antibiotic therapy including amikacin for polymicrobial growth from the wound VAC and PICC line. From halfway facility he was sent to emergency room back to [place] for abnormal labs and worsening of kidney [...] also recommended to follow-up with podiatry at [place]. Vascular was consulted and permanent central venous [...] evaluated by PT OT and discharged to halfway facility for furthertreatment. Hemodialysis sessions were arranged [...] Patient expressed understanding and was discharged to halfway facility in a stable condition. The patient [...] <Electronically signed by Swathi Burnham MD> 02/07/24 7202 [facility] Work Phone: Evaluation noteNo [employer] Other Evaluation note* Diagnosis Onset Date Resolution Status Leukocytosis acute [facility] Work Phone: Evaluation note* Diagnosis Onset Date Resolution Status Leukocytosis acute SHIRA (acute kidney injury) ac lummi Cardiomyopathy acute Elevated serum creatinine ac lummi Elevated troponin acute Hyperglycemia acute Hypokalemia acute Hyponatremia acute Metabolic alkalosis with respiratory acidosis acute CKD (chronic kidney disease) stage 3, GFR 30-59 ml/min chronic 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 Paroxysmal A-fib chronic [facility] Work Phone: Evaluation noteNo assessment information available [facility] Work Phone: evaluation note* Diagnosis Onset Date Resolution Status Acute kidney injury superimposed on CKD acute SHIRA (acute kidney injury) ac lummi Cellulitis of lower leg acut e Chronic ulcer of left foot with necrosis of muscle acute Controlled type 2 diabetes m ellitus with diabetic polyneuropathy acute Hyperkalemia acute [id number] acute Hyponatremia acute Infected wound acute Leukocytosis acute Metabolic acidosis acute Surgical wound, non healing acute Type 2 diabetes mellitus wit h diabetic chronic kidney disease acute 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 acute Diabetes chronic [facility] Work Phone: evaluation note* Diagnosis Onset Date Resolution Status Type 2 diabetes mellitus wit h diabetic chronic kidney disease acute Diabetes chronic Acute kidney injury superimposed on CKD resolved SHIRA (acute kidney injury) re solved Cellulitis of lower leg reso lved Chronic ulcer of left foot with necrosis of muscle resolved Controlled type 2 diabetes m ellitus with diabetic polyneuropathy resolved Hyperkalemia resolved [id number] resolved Hyponatremia resolved Infected wound resolved Leukocytosis resolved Metabolic acidosis resolved Surgical wound, non healing resolved 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 resolved Anemia acute Heme + stool acute CKD (chronic kidney disease) stage 3, GFR 30-59 ml/min chronic [facility] Work Phone: Evaluation note* Diagnosis Onset Date Resolution Status Type 2 diabetes mellitus wit h diabetic chronic kidney disease acute Diabetes chronic Acute kidney injury superimposed on CKD resolved SHIRA (acute kidney injury) re solved Cellulitis of lower leg reso lved Chronic ulcer of left foot with necrosis of muscle resolved Controlled type 2 diabetes m ellitus with diabetic polyneuropathy resolved Hyperkalemia resolved [id number] resolved Hyponatremia resolved Infected wound resolved Leukocytosis resolved Metabolic acidosis resolved Surgical wound, non healing resolved 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 resolved Anemia acute COPD (chronic obstructive pulmonary disease) acute Diarrhea acute GI bleed acute Heme + stool acute Hypotension acute CKD (chronic kidney disease) stage 3, GFR 30-59 ml/min chronic Acute kidney injury superimposed on CKD resolved Metabolic acidosis resolved [facility] Work Phone: History and physical note Author Yakov To [facility] February 13, 2023 9:35pm Note Date/Time February 13, 2023 9:2 3pm [facility] [address] [place] [address] Hospitalist H&P Signed Patient: Adwoa Porter MR#: [id number] : 1955 Acct:[id number] Age/Sex: 67 / M Adm Date: 3 Loc: Room: [address] [place] [address] Type: ADM IN Attending Dr: Yakov To DO Copies to: DO Vinnie Perry DO~ HPI DATE OF EXAMINATION: 02/13/23 CHIEF COMPLAINT: High glucose HISTORY OF PRESENT ILLNESS: Mr Porter is a 67-year-old male past medical history of uncontrolled type 2 diabetes, CKD, PAD status post left great toe amputation due to diabetes complication, CHF, COPD, IASK who presents hospital today at the request of his diabetic doctor . He states his glucose has been elevated last couple days in the 500 range, he saw his emergency medical services coordinator today and because he knew his glucose [...] dulaglutide 4.5 mg/0.5 mL subcutaneous pen injector ([facility]) See Rx Instructions .Route .COMPLEX [...] % (Auto) 17.7 % (.) 02/13/23 16:49 [place] % (Auto) 8.0 % (.) 02/13/23 16:49 Eos % (Auto) 2.9 % (.) 02/13/23 16:49 Baso % (Auto) 0.6 % (.) 02/13/23 16:49 Nucleat RBC Rel Count 0.1 /100 WBC (0-0.5) 02/13/23 16:49 Neut # (Auto) 8.5 x10E3/uL (1.8-7.7) H 02/13/23 16:49 Lymph # (Auto) 2.1 x10E3/uL (1.00-4.8) 02/13/23 16:49 [place] # (Auto) 1.0 x10E3/uL (0.0-0.8) H 02/13/23 [...] pH 6.0 (5.0-9.0) 02/13/23 15:49 Ur Specific [place] 1.018 (1.001-1.030) 02/13/23 15:49 Urine Protein Negative [...] By: <Electronically signed by Yakov To, > 02/13/23 2132 [facility] Work Phone: History general Narrative [...] Hospitalization History rt. heart cath Rex Stout- [facility] 05/11/16 Hospitalization History [facility] 02[facility] Hospitalization History [facility] 11/2017 Hospitalization History INFECTION IN LEFT SMALL TOE AND FOOT 11/2018 Hospitalization History [facility] -- ICU -- COPD, SMAL L WOUND ON LEFT FOOT 12/2019 Hospitalization History COPD [facility] 12/2019 Hospitalization History Ankle wound 01/2020 Hospitalization History COVID 11/2020 Hospitalization History A-FIB, CHF, KIDNEY ISSUE S 03/2021 [employer] Other History general Narrative - Reported* Type [...] Hospitalization History rt. heart cath Rex Stout- [facility] 05/11/16 Hospitalization History [facility] 02/2017 Hospitalization History [facility] 11/2017 Hospitalization History INFECTION IN LEFT SMALL TOE AND FOOT 11/2018 Hospitalization History [facility] -- ICU -- COPD, SMAL L WOUND ON LEFT FOOT 12/2019 Hospitalization History COPD [facility] [place] 12/2019 Hospitalization History Ankle wound 01/2020 Hospitalization History COVID 11/2020 Hospitalization History A-FIB, CHF, KIDNEY ISSUE S 03/2021 [employer] Other History general Narrative - Reported* Type [...] Medical History VERTIGO Medical History 04/28/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 heart cath Rex Stout- [facility] 05/11/16 Hospitalization History [facility] 02/2017 Hospitalization History [facility] 11/2017 Hospitalization History INFECTION IN LEFT SMALL TOE AND FOOT 11/2018 Hospitalization History [facility] -- ICU -- COPD, SMAL L WOUND ON LEFT FOOT 12/2019 Hospitalization History COPD [facility] 12/2019 Hospitalization History Ankle wound 01/2020 Hospitalization History COVID 11/2020 Hospitalization History A-FIB, CHF, KIDNEY ISSUE S 03/2021 [employer] Other Hissumi general Narrative - Reported* Type Description Date [...] Medical History VERTIGO Medical History 04/28/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 heart cath Rex Stout- [facility] 05/11/16 Hospitalization History [facility] 02/2017 Hospitalization History [facility] 11/2017 Hospitalization History INFECTION IN LEFT SMALL TOE AND FOOT 11/2018 Hospitalization History [facility] -- ICU -- COPD, SMAL L WOUND ON LEFT FOOT 12/2019 Hospitalization History COPD [facility] 12/2019 Hospitalization History Ankle wound 01/2020 Hospitalization History COVID 11/2020 Hospitalization History A-FIB, CHF, KIDNEY ISSUE S 03/2021 Hospitalization History [facility] 01/2023 [employer] Other History general Narrative - Reported* Type [...] Medical History [facility] Medical History 04/28/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 failure w/hypoxia, acute on systolic chronic HF Medical History [facility]- r ight great toe bleeding [...] Hospitalization History rt. heart cath [facility] 05/11/16 [facility] 11/2017 Hospitalization History INFECTION IN LEFT SMALL TOE AND FOOT 11/2018 Hospitalization History [facility] -- ICU -- COPD, SMAL L WOUND ON LEFT FOOT 12/2019 Hospitalization History COPD [facility] [place] 12/2019 Hospitalization History Ankle wound 01/2020 Hospitalization History COVID 11/2020 Hospitalization History A-FIB, CHF, KIDNEY ISSUE S 03/2021 Hospitalization History [facility] 01/2023 Hospitalization History [facility] discha rged 03-27-2023 [employer] Other History general Narrative - Reported* Type [...] Medical History [facility] Medical History 04/28/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 failure w/hypoxia, acute on systolic chronic HF Medical History [facility]- r ight great toe bleeding (not stopping) Medical History pneumonia-[facility] - Medical History [facility]-7-2023 Surgical History Cardiac catherization (07/2010) Surgical History AICD insertion (11/2010) Surgical History right sided heart cath - [place] 10/2013 Surgical History appendectomy Surgical History rt [...] Hospitalization History rt. heart cath [facility]- [facility] 05/11/16 Hospitalization History [facility] 02/2017 Hospitalization History [facility] 11/2017 Hospitalization History INFECTION IN LEFT SMALL TOE AND FOOT 11/2018 Hospitalization History [facility] -- ICU -- COPD, SMAL L WOUND ON LEFT FOOT 12/2019 Hospitalization History COPD [facility] [place] 12/2019 Hospitalization History Ankle wound 01/2020 Hospitalization History COVID 11/2020 Hospitalization History A-FIB, CHF, KIDNEY ISSUE S 03/2021 Hospitalization History [facility] 01/2023 Hospitalization History [facility] discha rged 03-27-2023 Hospitalization History [facility] x2 7-2 023 [employer] Other History general Narrative - Reported* Type [...] Medical History [facility] Medical History 04/28/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 failure w/hypoxia, acute on systolic chronic HF Medical History [facility]- r ight great toe bleeding (not stopping) Medical History pneumonia-[facility] 06-05 Medical History [facility]-7-2023 Medical History [id number]-[facility] Surgical History Cardiac catherization (07/2010) Surgical History [...] Hospitalization History rt. heart cath [facility]- [facility] 05/11/16 Hospitalization History [facility] 02/2017 Hospitalization History [facility] pital 11/2017 Hospitalization History INFECTION IN LEFT SMALL TOE AND FOOT 11/2018 Hospitalization History [facility] -- ICU -- COPD, SMAL L WOUND ON LEFT FOOT 12/2019 Hospitalization History COPD [facility] [place] 12/2019 Hospitalization History Ankle wound 01/2020 Hospitalization History COVID 11/2020 Hospitalization History A-FIB, CHF, KIDNEY ISSUE S 03/2021 Hospitalization History [facility] 01/2023 Hospitalization History [facility] discha rged 03-27-2023 Hospitalization History [facility] x2 7-2 023 Hospitalization History 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 failure w/hypoxia, acute on systolic chronic HF Medical History [facility]- r ight great toe bleeding (not stopping) Medical History pneumonia-[facility] 06-05 Medical History [facility]-7-2023 Medical History [id number]-[facility] Surgical History Cardiac catherization (07/2010) Surgical History AICD insertion (11/2010) Surgical History right sided heart cath - [place] 10/2013 Surgical History appendectomy Surgical History rt [...] Hospitalization History rt. heart cath [facility]- [facility] 05/11/16 Hospitalization History [facility] 02[facility] Hospitalization History [facility] 11/2017 Hospitalization History INFECTION IN LEFT SMALL TOE AND FOOT 11/2018 Hospitalization History [facility] -- ICU -- COPD, SMAL L WOUND ON LEFT FOOT 12/2019 Hospitalization History COPD [facility] [place] 12/2019 Hospitalization History Ankle wound 01/2020 Hospitalization History COVID 11/2020 Hospitalization History A-FIB, CHF, KIDNEY ISSUE S 03/2021 Hospitalization History [facility] 01/2023 Hospitalization History [facility] discha rged 03-27-2023 Hospitalization History [facility] x2 7-2 023 Hospitalization History [facility] 10-2 023 Hospitalization History [facility] rib fx left Hospitalization History [facility] -pnemo jennifer [employer] Other History general Narrative - Reported* Type [...] Medical History [facility] Medical History 04/28/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 failure w/hypoxia, acute on systolic chronic HF Medical History [facility]- r ight great toe bleeding (not stopping) Medical History pneumonia-[facility] 06-05 Medical History [facility]-7-2023 Medical History [id number]-[facility] Medical History NON RESPONSIVE X 2 IN THE LAST 6 WEEKS Surgical History Cardiac catherization (07/2010) Surgical History AICD insertion (11/2010) Surgical History right sided heart cath - [place] 10/2013 Surgical History appendectomy Surgical History rt [...] Hospitalization History rt. heart cath [facility]- [facility] 05/11/16 Hospitalization History [facility] 02[facility] Hospitalization History [facility] 11/2017 Hospitalization History INFECTION IN LEFT SMALL TOE AND FOOT 11/2018 Hospitalization History [facility] -- ICU -- COPD, SMAL L WOUND ON LEFT FOOT 12/2019 Hospitalization History COPD [facility] [place] 12/2019 Hospitalization History Ankle wound 01/2020 Hospitalization History COVID 11/2020 Hospitalization History A-FIB, CHF, KIDNEY ISSUE S 03/2021 Hospitalization History [facility] 01/2023 Hospitalization History [facility] discha rged 03-27-2023 Hospitalization History [facility] x2 7-2 023 Hospitalization History [facility] 10-2 023 Hospitalization History [facility] rib fx left Hospitalization History [facility] -pnemo jennifer [employer] Other History general Narrative - Reported* Type [...] Medical History [facility] Medical History 04/28/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 failure w/hypoxia, acute on systolic chronic HF Medical History [facility]- r ight great toe bleeding (not stopping) Medical History pneumonia-[facility] 06-05 Medical History [facility]-7-2023 Medical History [id number]-[facility] Medical History NON RESPONSIVE X 2 IN [...] Hospitalization History rt. heart cath [facility]out- [facility] 05/11/16 Hospitalization History [facility] 02[facility] Hospitalization History [facility] pital 11/2017 Hospitalization History INFECTION IN LEFT SMALL TOE AND FOOT 11/2018 Hospitalization History [facility] -- ICU -- COPD, SMAL L WOUND ON LEFT FOOT 12/2019 Hospitalization History COPD [facility] [place] 12/2019 Hospitalization History Ankle wound 01/2020 Hospitalization History COVID 11/2020 Hospitalization History A-FIB, CHF, KIDNEY ISSUE S 03/2021 Hospitalization History [facility] 01/2023 Hospitalization History [facility] discha rged 03-27-2023 Hospitalization History [facility] x2 7-2 023 Hospitalization History [facility] 10-2 023 Hospitalization History [facility] rib fx left Hospitalization History [facility] -pnemo jennifer [employer] Other progress note Author Ethan Cummings [facility] December 04, 2022 1:47pm Note Date/Time December 04, 2022 1 :44pm [facility] [place] [address] Hem/Onc Follow Up Note - OP Signed Patient: Adwoa Porter MR#: [id number] : 1955 Acct:[id number] Age/Sex: 67 / M Type: REG RCR [...] hs BCR/ABL was negative. Recent hospitalization at [place] for COVID PNA. He had also a [...] for coordination of care (as documented) and [id number] counseling of patient and/or family. [facility] - Medical History Medical History: [...] % (Auto) 67.1, Lymph % (Auto) 20.5, [place] % (Auto) 8.2, Eos % (Auto) 3.5, Baso % (Auto) 0.7, Nucleat RBC Rel Count 0.1, Neut # (Auto) 7.9 H, Lymph # (Auto) 2.4, [place] # (Auto) 1.0 H, Eos # (Auto) [...] by Ethan Cummings II, DO> 12/04/22 [address] [facility] Work Phone: Advance Directives No Advanced Directives Records Found Advance Directive Response Recorded Date/ Time Advance Directives No July 2:42pm Advance Directive Response Recorded Date/ Time Advance Directives No July 1:42pm Chief Complaint and Reason for Visit Chief Complaint Right great toe woun d Reason for Visit Cellulitis of left t oe Controlled type 2 diabetes mellitus with diabetic polyneuropathy [id number] Chief Complaint DM Obstructive sleep apnea Chief Complaint DM Leukocytosis Reason for Visit Leukocytosis Chief Complaint Leukocytosis DM sent by [employer] [facility] Reason for Visit Leukocytosis SHIRA (acute kidney injury) Cardiomyopathy Elevated serum creatinine Elevated troponin Hyperglycemia Hypokalemia Hyponatremia Metabolic alkalosis with respiratory acidosis CKD (chronic kidney disease) stage 3, GFR 30-59 ml/min Obstructive sleep apnea Paroxysmal A-fib Chief Complaint Leukocytosis DM sent by [employer] [facility] E87.6 I48.0 Reason for Visit Leukocytosis SHIRA [...] 2 diabetes mellitus with diabetic polyneuropathy Hyperkalemia [id number] Hyponatremia Infected wound Leukocytosis Metabolic acidosis Surgical wound, non healing Type 2 diabetes mellitus with diabetic chronic kidney disease 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 Diabetes Chief Complaint Hosp Follow Up, Rib Fx DM Amb Documentation Unknown abnormal labs abnormal labs abnormal labs abnormal labs abnormal labs abnormal labs abnormal labs abnormal labs rectal bleeding Reason for Visit Type 2 diabetes antonio itus with diabetic chronic kidney disease Diabetes Acute kidney injury superimposed on CKD SHIRA (acute kidney injury) Cellulitis of lower leg Chronic ulcer of left foot with necrosis of muscle Controlled type 2 diabetes mellitus with diabetic polyneuropathy Hyperkalemia [id number] Hyponatremia Infected wound Leukocytosis Metabolic acidosis Surgical wound, non healing 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 Anemia Heme + stool CKD (chronic kidney disease) stage 3, GFR 30-59 ml/min Chief Complaint DM Amb Documentation Unknown abnormal labs abnormal labs abnormal labs abnormal labs abnormal labs abnormal labs abnormal labs abnormal labs rectal bleeding rectal bleeding rectal bleeding rectal bleeding Reason for Visit Type 2 diabetes antonio itus with diabetic chronic kidney disease Diabetes Acute kidney injury superimposed on CKD SHIRA (acute kidney injury) Cellulitis of lower leg Chronic ulcer of left foot with necrosis of muscle Controlled type 2 diabetes mellitus with diabetic polyneuropathy Hyperkalemia [id number] Hyponatremia Infected wound Leukocytosis Metabolic acidosis Surgical wound, non healing 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 Anemia COPD (chronic obstructive pulmonary disease) Diarrhea GI bleed Heme + stool Hypotension CKD (chronic kidney disease) stage 3, GFR 30-59 ml/min Acute kidney injury superimposed on CKD Metabolic acidosis Assessments Diagnosis Onset Date Resolution Status Cellulitis of left toe acute Controlled type 2 diabetes m ellitus with diabetic polyneuropathy acute [id number] acute Family History No Family History Records Found Relationship Condition Age at Onset Recorded Date/T melanie Not Specified Diabetes mellitus Unknown Coronary artery disease Unknown Relationship Condition Age at Onset Recorded Date/T melanie Not Specified Coronary artery disease Unknown brother Unknown Malignant neoplasm Unknown father Unknown Not Specified Diabetes mellitus Unknown Unknown Hypertension Unknown Heart disease Unknown Summary Purpose Reason for Referral Reason * 10/17 Patient presented to with wright to left hand, pointer finger, patient is diabetic. Would like him to be seen by wound care for follow up. Thank you! Diagnosis 1 Burn of single finge r of left hand except thumb, unspecified burn degree, initial encounter (T23.022A) Referral Organization [facility] Urgent Care [facility] Referring Provider First Name Gisselle Referring Provider Last Name Noble Referring Provider Specialty Nurse Pracrachid ruiz Referred Organization [facility] Referred Address [address],[place], [place],[address] Referred Provider Specialty Wound Care Referral Priority Routine General Notes Lennie Mcghee Ayo 022 12:46:37 PM >Received today and waiting for office notes to be locked before sending referral Lennie Mcghee 10/03/2022 03:00:03 PM >Referral was fax Clinical Notes Office [phone] Reason * FU 02/13 lumbar arthritis/pain - wants Faith or nadeen Diagnosis 1 Lumbar and sacral ar thritis (M48.9) Referral Organization [facility] Family Medicin e Tracie Referring Provider First Name Vinnie Referring Provider Last Name Osvaldo Referring Provider Specialty Family Prac yamil Referred Organization [facility] Referred Address [address] [place], [place],[address] Referred Provider Specialty Pain Medicin e Referral Priority Routine General Notes Doris Modi 12:58:37 PM > referral received and faxed Additional Source Comments (unrecognized sect ion and content) No Status Records FoundNo Status Records FoundNo Status Records FoundNo Status Records FoundNo Status Records FoundNo Status Records FoundNo Status Records Found INFORMATION SOURCE (unrecogn ized section and content) DATE CREATED AUTHOR [facility] DATE CREATED AUTHOR AUTHOR'S ORGANIZ ATION 03/05/2022 [facility] DATE CREATED AUTHOR AUTHOR'S ORGANIZ ATION 04/27/2023 [facility] DATE CREATED AUTHOR AUTHOR'S ORGANIZ ATION 09/03/2023 [facility] DATE CREATED AUTHOR AUTHOR'S ORGANIZ ATION 12/23/2023 [facility] DATE CREATED AUTHOR AUTHOR'S ORGANIZ ATION 01/26/2024 [facility] DATE CREATED AUTHOR AUTHOR'S ORGANIZ ATION 02/22/2024 [facility] REASON FOR VISIT (unrecogniz ed section and content) 4 month Follow upportable co ncentratorDM, Needs to reapply for PAP, Type 2 IDDM, [address] [address] [facility], Patient will mail PAP [...] F/U - pneumonia, SOB, Pt was at [facility], He said he went in [...] [facility] Visit Codes, In-patient [facility]-10/18-10/24/2022, [facility] Visit CodesconsultDeclined servicesStein Hospice ReferraldownloadStein Hospice ReferralNo [id number] requestDS PAP Basaglar/TrulicityDS VoicemailrefillHOSPITAL VISIT, Acute on chronic systolic CHFrefillupdatefall, bruise, lump on back near L shoulderbalance issuesrefillHOSPITAL FOLLOW UPCH[facility] HOSPITALfallNo Informationrefillbruising all over, difficulty walkingDS N/S [...] Care Provider Active Start: December 11, 2023 Jacqueline Gar RMA Attending Provider Active Start: December 11, 2023 Team Status: Active Member Role Status Dates Vinnie Stewart DO Primary Care Provider Active Ethan Cummings II, DO Attending Provider Active Simba Kaufman MD Referring Provider Active Team Status: Active Member Role Status Dates Vinnie Stewart DO Primary Care Provider Active Nicolette Mnazano APRN Attending Provider Active Team Status: Active [...] 2024 End: February 05, 2024 Farhan Hudson , Admit Provider Active Start: January 28, 2024 [...] 2024 End: February 05, 2024 Selin George NP-C Other Provider Active St art: January 28, [...] Hudson DO Admit Provider, Other Provider Act reji Start: January 29, 2024 Farhan Schofield MD [...] Other Provider Active Start: M arch 2023 Ervin Forrest MD Attending Provider [...] Provider Active Start : January 30, 2024 SHARIF GuerreroC Other Provider Active St art: January 30, [...] Status: Active Member Role Status Dates Vinnie Stewatr DO Primary Care Provider Active Start: February [...] Provider Active Start : February 05, 2024 Team Status: Active Member Role Status Dates Vinnie Stewart DO Primary Care Provider Active Start: January 28, 2024 End: February 05, 2024 Farhan Hudson DO Admit Provider, Atte nding Provider, Other Provider Active Start: January 28, 2024 End: February 05, 2024 Team Status: Active Member Role Status Dates Vinnie Stewart DO Primary Care Provider Active Start: January 29, 2024 End: February 05, 2024 Farhan Hudson DO Admit Provider, Other Provider Act reji Start: January 29, 2024 End: February 05, 2024 Farhan Schofield MD Other Provider Active Start: January 29, 2024 End: February 05, 2024 Lia Law MD Attending Provider, Other Provider Active Start: January 29, 2024 End: February 05, 2024 Valentin Valle DPM Other Provider Active Start: January 29, 2024 End: February 05, 2024 Team Status: Active Member Role Status Dates Vinnie Stewart DO Primary Care Provider Active Start: January 29, 2024 End: February 05, 2024 Farhan Hudson DO Admit Provider, Othe r Provider Active Start: January 29, 2024 End: February 05, 2024 Farhan Schofield MD Other Provider Active Start: January 29, 2024 End: February 05, 2024 iLa Law MD Other Provider Active Start: Ayo downey 2023 End: February 05, 2024 Ervin Forrest MD Attending Provider Active Start: January 29, 2024 End: February 05, 2024 Team Status: Active Member Role Status Dates Vinnie Stewart DO Primary Care Provider Active Start: January 30, 2024 End: February 05, 2024 Farhan Hudson DO Admit Provider, Othe r Provider Active Start: January 30, 2024 End: February 05, 2024 Farhan Schofield MD Other Provider Active Start: January 30, 2024 End: February 05, 2024 Lia Law MD Other Provider Active Start: Ayo downey 2023 End: February 05, 2024 Valentin Valle DPM Other Provider Active Start: January 30, 2024 End: February 05, 2024 Raul Bravo MD Attending Prov ider, Other Provider Active Start: January 30, 2024 End: February 05, 2024 Veronica Bailey LPN Other Provider Active Star t: January 30, 2024 End: February 05, 2024 Rodrick Herndon MD Other Provider Active Start : January 30, 2024 End: February 05, 2024 Selin George NP-C Other Provider Active St art: January 30, 2024 End: February 05, 2024 Shaheed Bryan MD Other Provider Active Start : January 30, 2024 End: February 05, 2024 Team Status: Active Member Role Status Dates Vinnie Stewart DO Primary Care Provider Active Start: January 30, 2024 End: February 05, 2024 Farhan Hudson DO Admit Provider, Othe r Provider Active Start: January 30, 2024 End: February 05, 2024 Farhan Schofield MD Attending Provider, Other Provider Active Start: January 30, 2024 End: February 05, 2024 Lia Law MD Other Provider Active Start: [facility] 2023 End: February 05, 2024 Valentin Valle DPM Other Provider Active Start: January 30, 2024 End: February 05, 2024 Raul Bravo MD Other Provider Active Start: January 30, 2024 End: February 05, 2024 Team Status: Active Member Role Status Dates Vinnie Stewart DO Primary Care Provider Active Start: February 05, 2024 End: February 05, 2024 Farhan Hudson DO Admit Provider Active Start: February 05, 2024 End: February 05, 2024 Farhan Schofield MD Other Provider Active Start: February 05, 2024 End: February 05, 2024 Lia Law MD Other Provider Active Start: [facility] 2023 End: February 05, 2024 Valentin Valle DPM Other Provider Active Start: February 05, 2024 End: February 05, 2024 Raul Bravo MD Other Provider Active Start: February 05, 2024 End: February 05, 2024 Veronica Bailey LPN Other Provider Active Star t: February 05, 2024 End: February 05, 2024 Rodrick Herndon MD Other Provider Active Start : February 05, 2024 End: February 05, 2024 KINSEY Guerrero Other Provider Active St art: February 05, 2024 End: February 05, 2024 Shaheed Bryan MD Other Provider Active Start : February 05, 2024 End: February 05, 2024 Swathi Burnham MD Other Provider Active Start : February 05, 2024 End: February 05, 2024 Simba Kaufman MD Attending Provider Active Start : February 05, 2024 End: February 05, 2024 Team Status: Active Member Role Status Dates Vinnie Stewart DO Primary Care Provider Active Start: February 07, 2024 End: February 05, 2024 Farhan Hudson DO Admit Provider Active Start: February 07, 2024 End: February 05, 2024 Farhan Schofield MD Other Provider Active Start: February 07, 2024 End: February 05, 2024 Lia Law MD Other Provider Active Start: 2023 End: February 05, 2024 Valentin Valle DPM Other Provider Active Start: February 07, 2024 End: February 05, 2024 Raul Bravo MD Other Provider Active Start: February 07, 2024 End: February 05, 2024 Veronica Bailey LPN Other Provider Active Star t: February 07, 2024 End: February 05, 2024 Rodrick Herndon MD Other Provider Active Start : February 07, 2024 End: February 05, 2024 KINSEY Guerrero Other Provider Active St art: February 07, 2024 End: February 05, 2024 Shaheed Bryan MD Other Provider Active Start : February 07, 2024 End: February 05, 2024 Swathi Burnham MD Attending Provider, Other Provider Active Start: February 07, 2024 End: February 05, 2024 Team Status: Active Member Role Status Dates Vinnie Stewart DO Primary Care Provider Active Start: February 13, 2024 Simba Kaufman MD Attending Provider Active Start : February 13, 2024 Team Status: Active Member Role Status Dates Vinnie Stewart DO Primary Care Provider Active Start: February 19, 2024 Nancy Hitesh Marinelliore , [employer] MANAGER-BC Emergency Provider Active Start: February 19, 2024 Butch Rodney MD Admit Provider, Atte nding Provider Active Start: February 19, 2024 Lia Law MD Other Provider Active Start: A 2023 Team Status: Inactive Member Role Status Dates Vinnie Stewart DO Primary Care Provider Active Start: February 19, 2024 End: February 21, 2024 Nancy E Bullimore , ABATTOIR MANAGER-BC Emergency Provider Active Start: February 19, 2024 End: February 21, 2024 Butch Rodney MD Admit Provider, Atte nding Provider Active Start: February 19, 2024 End: February 21, 2024 Lia Law MD Other Provider Active Start: A 2023 End: February 21, 2024 Sebastian Granger MD Other Provider Active Start : February 19, 2024 End: February 21, 2024 Team Status: Active Member Role Status Dates Vinnie Stewart DO Primary Care Provider Active Start: February 19, 2024 Nancy E Isisore , ABATTOIR MANAGER-BC Emergency Provider Active Start: February 19, 2024 Butch Rodney MD Admit Provider, Atte nding Provider, Other Provider Active Start: February 19, 2024 Lia Law MD Other Provider Active Start: A 2023 Sebastian Granger MD Other Provider Active Start : February 19, 2024 Team Status: Active Member Role Status Dates Vinnie Stewart DO Primary Care Provider Active Start: February 20, 2024 Nancy E Bulljoseore , ABATTOIR MANAGER-BC Emergency Provider Active Start: February 20, 2024 Butch Rodney MD Admit Provider, Othe r Provider Active Start: February 20, 2024 Lia Law MD Other Provider Active Start: A 2023 Sebastian Granger MD Attending Provider, Other Provider Active Start: February 20, 2024 Team Status: Active Member Role Status Dates Vinnie Stewart DO Primary Care Provider Active Start: February 20, 2024 Nancy Marinelliore , [employer]ATTOIR MANAGER-BC Emergency Provider Active Start: February 20, 2024 Butch Rodney MD Admit Provider, Othe r Provider Active Start: February 20, 2024 Lia Law MD Attending Provider, Other Provider Active Start: February 20, 2024 Sebastian Granger MD Other Provider Active Start : February 20, 2024 Goals (unrecognized section and content) Goals [...] BE BASED ON THE PRIMARY CLINICAL RECORDS. [employer] [facility]. provides no warranty or guarantee of the accuracy or completeness of information in this document.
[2024-02-25 08:21] LABS: Basophils Percent Auto 0.2 % (0.2-2.0); Eosinophils Absolute Auto 0.2 10^3/uL (0.0-0.7); Eosinophils Percent Auto 2.5 % (0.9-7.0); Immature Granulocytes Abs Auto 0.03 10^3/uL (0.00-0.03); Immature Granulocytes Pct Auto 0.4 % (0.0-0.5); Lymphocytes Absolute Auto 1.4 10^3/uL (1.2-3.8); Lymphocytes Percent Auto 16.3 % (20.5-60.0); Mean Corpuscular HGB Conc 31.6 g/dL (29.9-35.2); Mean Corpuscular Hemoglobin 27.4 pg (25.9-34.0); Mean Corpuscular Volume 86.7 fL (80.0-94.0); Mean Platelet Volume 12.2 fL (9.5-13.5); Monocytes Absolute Auto 0.5 10^3/uL (0.3-0.8); Monocytes Percent Auto 6.1 % (1.7-12.0); Neutrophils Absolute Auto 6.4 10^3/uL (1.4-6.5); Neutrophils Percent Auto 74.5 % (43.0-75.0); Platelet Count 43 10^3/uL (150-450); Red Blood Count 2.48 10^6/uL (4.70-6.10); White Blood Count 8.5 10^3/uL (4.0-11.0)
[2024-02-25 08:59] LABS: Hematocrit 21.5 % (42.0-54.0); Hemoglobin 6.8 g/dL (14.0-18.0)
[2024-02-25 09:03] LABS: Calcium 7.2 mg/dL (8.5-10.1); Carbon Dioxide 23.4 mmol/L (21.0-32.0); Chloride 101 mmol/L (98-107); Estimated GFR (African America 16 (>=60); Estimated GFR (Non-African Ame 13 (>=60); Glucose 120 mg/dL (74-106); Potassium 3.4 mmol/L (3.5-5.1); Sodium 139 mmol/L (136-145)
[2024-02-25 16:29] LABS: C. Difficile PCR NEGATIVE (NEGATIVE)
== END 2024-02-25 02:34 | disposition home or self-care (01) ==
LOC: LAB 02:33
PROVIDERS: PCP Family Medicine; Visit Provider Nurse Practitioner Family
DX: R19.7 Diarrhea, unspecified (principal)
CPT/HCPCS: 36415; 80048; 85025; 87493

== ENCOUNTER 2024-02-26 14:28 | Outpatient (OUT) | payer MEDICARE, SELFPAY | END 2024-02-26 14:29 | disposition home or self-care (01) | LOC: WC 14:28 | PROVIDERS: PCP Family Medicine; Visit Provider Podiatrist Foot & Ankle Surgery | DX: E11.621 Type 2 diabetes mellitus with foot ulcer (principal); L97.422 Non-pressure chronic ulcer of left heel and midfoot with fat layer exposed; L97.412 Non-pressure chronic ulcer of right heel and midfoot with fat layer exposed; L97.528 Non-pressure chronic ulcer of other part of left foot with other specified severity | CPT/HCPCS: 11043; 11046; A6213 ==

== ENCOUNTER 2024-02-27 09:57 | Emergency (ER) | payer MEDICARE, SELFPAY ==
[2024-02-27] VITALS (40 sets, daily range): BP systolic 71–116; BP diastolic 46–68; PULSE 85–88; TEMP 35.9–36.4; O2SAT 93–100; BMI 34.0
--- NOTE | 2024-02-27 10:07 | ECG_ITS ---
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
--- NOTE | 2024-02-27 10:11 | XR_ITS ---
The [address] [address] Patient Name: ADWOA PORTER MRN: [id number] date: 1955 Sex: M Assigned Patient Location: ER Current Patient Location: ER Accession/Order Number: [id number] Exam Date: 02/27/2024 10:55 Report Date: 02/27/2024 11:20 At the request of: NEGRO GALLARDO Procedure: XR chest 1V EXAMINATION: XR chest 1V HISTORY: sepsis COMPARISON: 01/28/2024 TECHNIQUE: AP semierect FINDINGS: LUNGS: Moderate left basilar infiltrate partially obscuring the hemidiaphragm, slightly improved. Density of the right lung likely represents a skinfold VASCULATURE: No increased pulmonary vasculature. PLEURA: No pneumothorax. Likely left pleural effusion CARDIAC: No cardiomegaly or cardiac silhouette abnormality. MEDIASTINUM: No visible mass or adenopathy. Left pacemaker BONES: No fracture or visible bone lesion. OTHER: Right PICC catheter tip extends to the proximal superior vena cava XR/XR chest 1V IMPRESSION: Slight improvement in left basilar infiltrate likely combination of consolidation and pleural effusion Electronically authenticated by: BALBIR CABALLERO Date: 02/27/2024 11:20
--- NOTE | 2024-02-27 10:18 | ED_ITS ---
HPI HPI - General Adult General Chief complaint: Recheck/Abnormal Lab/Rx Stated complaint: ABNORMAL LABS Time Seen by Provider: 02/27/24 10:06 Source: patient Mode of arrival: ambulance Limitations: no limitations History of Present Illness HPI narrative: Patient is a 68-year-old male who is presenting to the ER with chief complaint of low hemoglobin and needing 2 units of blood. Patient's hemoglobin was 6.8 and hematocrit 21.5 on February 24. I have spoken to Dr. Chan prior to this patient's arrival, along with Lucy PRICE speaking to nursing staff from the [facility] as well. It is reported that patient was due to have 2 units of blood through the infusion center, but the [facility] staff is reporting that orders were sent to the central scheduling to have this done as an outpatient in the infusion center. [facility] has not received this communication or has not communicated back to [facility] to set this up as an outpatient. Either way, miscommunication, administration is looking into the details. The best with the patient, he will be checking into the ER to be evaluated. Patient is arriving by EMS. When patient arrived here, her nursing staff the emergency room is finding that patient is hypotensive, rectal temperature 96.7, manual blood pressure 78/44, and also noted to have diarrhea for the past 9 days. Sepsis order set will be done. In doing chart review, and is on Eliquis and Bumex, patient is on insulin, levothyroxine, patient is currently on the Nasalide twice a day and scheduled until March 07. Patient has recent history of sepsis, COPD, type II diabetic, hypertension, stage IV kidney disease, hypothyroidism, proximal A-fib, patient has a pacemaker. Patient is a full code is signed on February 21, 2024. I have seen this patient several times in the ER in the past, patient looks better than other ER visits in the past. Patient has no complaint of chest pain or shortness of breath. Patient's main concern is his body is sore and also having diarrhea for 9 days. Patient does not have a Pedro catheter. Patient had left foot surgery [address] Van with osteomyelitis and wound debridement patient has chronic wounds to his left foot,. Right foot, sacrum. Patient has a small skin tear to his left forearm. All systems are negative except as noted/marked. All systems reviewed and otherwise negative. Nurses note and vital signs reviewed and patient is not hypoxic. General: The patient appears well and in no apparent distress. Patient is resting uncomfortably on cart. Patient is not toxic, lethargic, or listless Skin: Warm, dry, no pallor noted. There is no rash noted. No petechiae, purpura. Patient has healing wounds to his left foot, patient had osteomyelitis to his left foot, surgery was done by Dr. Van approximately 4 weeks ago, dressings were taken down, patient has no active bleeding, but there was a saturated Tegaderm type wound care dressing that was removed along with 3 ABDs they were covering the wound. Patient has a skin tear to his left forearm that was dressed by Izzy PRICE, see her nursing notes. Patient has a right heel ulceration as well, no obvious secondary signs of infection, the skin is necrotic; It is a size of a 25cent piece. Patient has diffuse stage I sacral ulceration with a small area of stage II small break in the skin to the right upper buttocks, patient has 3 different linear lines, only approximately 2 mm deep, longest is approximately 5 to 6 cm, no secondary signs infection. Patient has minimal stage I redness to the bottom of his scrotum, perineum, more skin irritation than anything, no signs of foreigneirs gangrene. No crepitus to palpation to the area. Patient has edema noted to the foreskin and the scrotum, no signs of phimosis or paraphimosis. Head: Normocephalic, atraumatic Eye: Mild pallor conjunctiva, no drainage, EOMI. PERRL Ears, Nose, Mouth, and Throat: oral mucosa is moist. Nares patent. Mouth without vesicles. Cardiovascular: Regular Rate and Rhythm, no murmur, gallop, rub patient has a dialysis catheterization noted to the right upper anterior chest wall, patient also has a PICC line to his right upper extremity. The areas around the dialysis cath in the PICC line are clean, dry, intact. Respiratory: Patient is in no distress, no accessory muscle use, lungs are clear to auscultation, no wheezing, rales or rhonchi no crackles; Back: non-tender, no CVA tenderness bilaterally to percussion. No CT LS midline pain; ecchymosis noted, mild distention GI: Obese, no tenderness to palpation, no masses appreciated. No rebound, guarding, or rigidity noted. No distention patient is an adult diaper. Musculoskeletal: Patient has full range of motion of all of the extremities, no motor, sensory, or focal neurological deficits. Also to chronic right heel ulceration, patient is missing his left great toe and his left fifth toe, patient still has his left second, third, fourth toe. Patient has all 5 right toes. No other secondary signs of cellulitis or bilateral feet infection besides left healing plantar wound; see skin assessment for healing wound to the bottom of his left foot from surgery 4 weeks ago, Neurological: A&O x4, normal speech Psychiatric: Cooperative Related Data Home Medications ?Medication ?Instructions ?Recorded ?Confirmed aspirin 81 mg tablet,delayed 81 mg PO DAILY 05/24/23 01/28/24 release (Adult Low Dose Aspirin) atorvastatin 80 mg tablet 80 mg PO QPM 05/24/23 01/28/24 carvedilol 25 mg tablet 25 mg PO Q12H 05/24/23 01/28/24 digoxin 125 mcg (0.125 mg) tablet 0.125 mg PO QDAY 05/24/23 01/28/24 gabapentin 400 mg capsule 400 mg PO Q12H 05/24/23 01/28/24 hydrocodone 5 mg-acetaminophen 325 1 tab PO Q8H PRN pain, moderate 05/24/23 01/28/24 mg tablet isosorbide dinitrate 20 mg tablet 20 mg PO BID 05/24/23 01/28/24 levothyroxine 50 mcg tablet 50 mcg PO DAILY 05/24/23 01/28/24 spironolactone 25 mg tablet 25 mg PO QAM 05/24/23 01/28/24 cyanocobalamin (vitamin B-12) 1,000 mcg PO DAILY 06/02/23 01/28/24 1,000 mcg tablet,extended release hydralazine 50 mg tablet 50 mg PO Q8H 06/02/23 01/28/24 nitroglycerin 0.4 mg sublingual 0.4 mg sublingual Q5M PRN chest 06/02/23 01/28/24 tablet pain amikacin 500 mg/2 mL injection 500 mg IM Q12H 01/28/24 01/28/24 solution bumetanide 2 mg tablet 2 mg PO BID 01/28/24 01/28/24 ceftriaxone 1 gram intravenous 1 g IV DAILY 01/28/24 01/28/24 solution heparin, porcine (PF) 10 unit/mL 10 unit IV TID PRN IV line flush 01/28/24 01/28/24 intravenous syringe (Heparin Lock Flush (Porcine) (PF)) insulin lispro 100 unit/mL 1 sliding scale dose subcut 01/28/24 01/28/24 subcutaneous pen (Humalog KwikPen USEASDIRECTD (U-100) Insulin) linezolid in 5% dextrose in water 600 mg IV Q12H 01/28/24 01/28/24 600 mg/300 mL intravenous piggyback sodium chloride 0.9 % (flush) 10 ml IV TID 01/28/24 01/28/24 (Normal Saline Flush 0.9 % injection syringe) warfarin 2.5 mg tablet 2.5 mg PO QPM 01/28/24 01/28/24 Previous Rx's ?Medication ?Instructions ?Recorded potassium chloride 10 mEq 20 meq (2 x 10 mEq) PO TID #90 tabs 06/21/23 tablet,extended release(part/cryst) (Klor-Con M) collagenase clostridium histo. 250 1 applic topical DAILY #90 grams 01/23/24 unit/gram topical ointment (Santyl) Allergies Allergy/AdvReac Type Severity Reaction Status Date / Time GABRIELA Inhibitors AdvReac Mild COUGH Verified 01/15/24 16:55 Opioid HPI Opioid Management Most Recent Opioid Data: Last Pain Scale 7 02/27/24 14:02 Last Pain Intensity 4 01/19/24 10:42 Last ED Pain Assessment 02/27/24 12:28 Last MAR Pain Assessment 02/27/24 14:02 Ur Phencyclidine Scrn Negative (NEGATIVE) 11/01/23 22:16 PFSH PFS Medical History (Updated 02/27/24 @ 14:13 by Rodrick Coyle MD) Open wound of finger of right hand ?S61.209A - Unspecified open wound of unspecified finger without damage to nail, initial encounter (ICD-10) Chronic wound of extremity Cellulitis and abscess of foot ?L03.119 - Cellulitis of unspecified part of limb (ICD-10) ?L02.619 - Cutaneous abscess of unspecified foot (ICD-10) Hypokalemia ?E87.6 - Hypokalemia (ICD-10) Hyponatremia ?E87.1 - Hypo-osmolality and hyponatremia (ICD-10) Generalized weakness ?R53.1 - Weakness (ICD-10) Chronic wound of extremity Dyspnea ?R06.00 - Dyspnea, unspecified (ICD-10) CKD (chronic kidney disease) stage 4, GFR 15-29 ml/min ?N18.4 - Chronic kidney disease, stage 4 (severe) (ICD-10) HLD (hyperlipidemia) ?E78.5 - Hyperlipidemia, unspecified (ICD-10) Cardiac defibrillator in place ?Z95.810 - Presence of automatic (implantable) cardiac defibrillator (ICD-10) Pacemaker ?Z95.0 - Presence of cardiac pacemaker (ICD-10) COPD (chronic obstructive pulmonary disease) ?J44.9 - Chronic obstructive pulmonary disease, unspecified (ICD-10) CAD (coronary artery disease) ?I25.10 - Atherosclerotic heart disease of [place] coronary artery without angina pectoris (ICD-10) Benign essential hypertension ?I10 - Essential (primary) hypertension (ICD-10) Anemia in chronic kidney disease ?N18.9 - Chronic kidney disease, unspecified (ICD-10) ?D63.1 - Anemia in chronic kidney disease (ICD-10) Paroxysmal atrial fibrillation ?I48.0 - Paroxysmal atrial fibrillation (ICD-10) Type 2 diabetes mellitus with hyperglycemia ?E11.65 - Type 2 diabetes mellitus with hyperglycemia (ICD-10) Hypothyroid ?E03.9 - Hypothyroidism, unspecified (ICD-10) Chronic kidney disease, stage 3a ?N18.31 - Chronic kidney disease, stage 3a (ICD-10) Chronic HFrEF (heart failure with reduced ejection fraction) ?I50.22 - Chronic systolic (congestive) heart failure (ICD-10) Surgical History History of appendectomy ?Z90.49 - Acquired absence of other specified parts of digestive tract (ICD- 10) Family History Mother Family history of CHF (congestive heart failure) Brother Family history of cancer Social History Within the past year, how often did you have a drink containing alcohol: never Within the past year, how often did you have six or more drinks on one occasion: never Score interpretation: A score less than 4 is consistent with normal alcohol consumption. 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 Known occupational exposures/hazards: No Highest level of school completed/degree received: high school graduate Do you want help with school or training: No Are you now , , , , never or living with a partner: living with partner In a typical week, how many times do you talk on the telephone with family, friends, or neighbors: 3 or more times per week How often do you get together with friends or relatives: 3 or more times per week How often do you attend judaism or pentecostal services: never Do you belong to any clubs or organizations such as judaism groups unions, [employer] or athletic groups, or school groups: no Total score: 2 Score interpretation: A score of greater than or equal to 2 indicates the lowest level of social isolation. Little interest or pleasure in doing things: not at all Feeling down, depressed, or hopeless: not at all Feel stressed/tense/nervous/anxious/difficulty sleeping: not at all Due to disability, difficulty making decisions: No Do you think of yourself as: straight/heterosexual Gender Identity: male Exam Constitutional Vital Signs, click to edit/add: Last Vital Signs Temp 97.5 F L 02/27/24 14:15 Pulse 85 02/27/24 14:15 Resp 16 02/27/24 14:15 BP 88/58 L 02/27/24 14:15 Pulse Ox 93 L 02/27/24 14:00 O2 Del Method Room Air 02/27/24 12:23 Course Vital Signs Vital signs: Vital Signs Temperature 96.7 F L 02/27/24 10:00 Pulse Rate 86 02/27/24 10:00 Respiratory Rate 20 02/27/24 10:00 Blood Pressure 82/51 L 02/27/24 10:00 Pulse Oximetry 95 02/27/24 10:00 Oxygen Delivery Method Room Air 02/27/24 10:00 Temperature 97.5 F L 02/27/24 14:15 Pulse Rate 85 02/27/24 14:15 Respiratory Rate 16 02/27/24 14:15 Blood Pressure 88/58 L 02/27/24 14:15 Pulse Oximetry 93 L 02/27/24 14:00 Oxygen Delivery Method Room Air 02/27/24 12:23 Medical Decision Making MDM Narrative Medical decision making narrative: Prior to patient's arrival, there was 20 minutes spent on speaking to [facility] by Lucy PRICE. Dr. Cyole speaking to Doris Marinelli RN, cash manager, Dr. Coyle speaking to Dr. Chan several times as well. Ultimately, patient cannot have outpatient blood transfusion done in a timely fashion, so patient was brought to the ER for evaluation. 1115 I have spoken to the wound care nurse, DANI. She is aware of the saturated dressing that we removed from the base of left foot. There will be a consultation to planer off bearer, Dr. Reyes will come to see and evaluate the patient later this afternoon. 1200 Dr Mckenna declined admission due to no dialysis at [facility]. 1235 approx I spoke to Dr. To, the hospitalist at [facility]. I reviewed the case with him for approximately 10 minutes. I presented patient's case, discussed all his lab work, vital signs, and physical exam. Dr. To was looking at patient's lab work when he was discharged from [facility] on February 20. Today's lab work was very similar to when he was discharged on February 20. Due to [facility] not having any dialysis capabilities for observation or inpatient patients, and Dr. Mckenna declining admission secondary to dialysis concerns and his other lab test, Dr. To was accepting of the patient at [facility] thankfully. 1245 patient is aware of need for transfer to [facility] secondary to possibility of dialysis capabilities needed to be done in the next 1 or 2 days which is not able to be done at [facility]. dR Chan who is patient's PCP is aware of this as well, transfer the patient. It was noted that patient has remained hypotensive and had MAP less than 60, this was discussed with Dr. To. Patient has initially received albumin, 500 cc of fluid, patient is receiving blood at this time. We agreed to pressure bag the initial unit of blood to help with patient's MAP greater than 60. This was discussed with Janette PRICE. 1300 approx It was noted that patient was on a Lasix drip, not a Lasix 20 mg bolus x 1 that I initially meant to order. Calculations show that patient had approximately Lasix 34mg milligrams given. Lasix drip was stopped. This was discussed with Beatrice PRICE. I discussed this with the pharmacist as well, there was a computer lab order error by myself. Patient, nursing staff, cash manager Doris Yves is aware of this as well. No harm occurred to the patient. Patient did initially received IV albumin along with 2 units of blood IV that was initially ordered, while waiting for transfer. 1330 Patient's MAP has been over 60, patient had lunch ordered as well. Patient's lab results, chest x-ray, IV albumin, IV Lasix, IV blood transfusion was discussed with patient again. 1400 We have notified wound care clinic, and made them aware that patient will not be admitted to the hospital, they are getting transferred to [facility]. Nelson Tech Intern spoke to the office and they are aware. 1410 Patient has evidence of nitrites, bacteria. A Pedro catheter was placed, brown-colored urine was noted by William PRICE. Patient was given 1 g of IV Rocephin. 1435 EMS has arrived, patient will be taken to [facility]. Patient blood pressure at time of transfer was 94/68, MAP of 76. Critical care time 55 minutes exclusive from separate billable procedures that were performed. The following was considered in the determination of critical care but not limited to the level of medical decision making, intensive cardiac and/or respiratory monitoring, frequent vital sign monitoring, evaluation of laboratory studies, evaluation of radiographic studies, oxygen monitoring, and constant monitoring and speaking to family at bedside Lab Data Lab results reviewed: Yes I reviewed the patient's lab results Labs: Lab Results 02/27/24 02/27/24 02/27/24 Range/Units 10:20 10:26 11:55 WBC 9.8 (4.0-11.0) 10^3/uL RBC 2.54 L (4.70-6.10) 10^6/uL Hgb 7.1 L (14.0-18.0) g/dL Hct 22.3 L* (42.0-54.0) % MCV 87.8 (80.0-94.0) fL MCH 28.0 (25.9-34.0) pg MCHC 31.8 (29.9-35.2) g/dL RDW 17.2 H (11.0-15.0) % Plt Count 54 L (150-450) 10^3/uL MPV 13.2 (9.5-13.5) fL Neut % (Auto) 72.9 (43.0-75.0) % Lymph % (Auto) 16.9 L (20.5-60.0) % [place] % (Auto) 6.4 (1.7-12.0) % Eos % (Auto) 3.2 (0.9-7.0) % Baso % (Auto) 0.3 (0.2-2.0) % Neut # (Auto) 7.1 H (1.4-6.5) 10^3/uL Lymph # (Auto) 1.7 (1.2-3.8) 10^3/uL [place] # (Auto) 0.6 (0.3-0.8) 10^3/uL Eos # (Auto) 0.3 (0.0-0.7) 10^3/uL Baso # (Auto) 0.0 (0.0-0.1) 10^3/uL Abs Immat Gran (auto) 0.03 (0.00-0.03) 10^3/uL Imm/Tot Granulo (auto) 0.3 (0.0-0.5) % PT 14.2 H (9.0-11.6) sec INR 1.36 APTT 42.1 H* (22.3-36.2) sec VBG pH 7.290 L (7.330-7.430) VBG pCO2 46.0 (40.0-52.0) mmHg Sodium 138 (136-145) mmol/L Potassium 4.0 (3.5-5.1) mmol/L Chloride 100 (98-107) mmol/L Carbon Dioxide 23.4 (21.0-32.0) mmol/L Anion Gap 18.6 BUN 64.0 H (7.0-18.0) mg/dL Creatinine 5.18 H* (0.70-1.30) mg/dL Est GFR ( Amer) 14 L (>=60) Est GFR (Non-Af Amer) 11 L (>=60) BUN/Creatinine Ratio 12.4 Glucose 169 H (74-106) mg/dL Lactate 4.5 H* (0.4-2.0) mmol/L Calcium 7.6 L (8.5-10.1) mg/dL Magnesium 1.8 (1.8-2.4) mg/dL Total Bilirubin 0.5 (0.2-1.0) mg/dL AST 14 L (15-37) U/L ALT 12 L (16-63) U/L Alkaline Phosphatase 152 H (46-116) U/L Troponin I High Sens 33.2 (4.0-76.1) pg/mL NT-Pro-B Natriuret Pep >50887.0 H* (<=900.0) pg/mL Total Protein 5.8 L (6.4-8.2) g/dL Albumin 2.0 L (3.4-5.0) g/dL Globulin 3.8 g/dL Albumin/Globulin Ratio 0.5 Procalcitonin 0.23 (0.00-0.50) ng/mL Urine Color Dk. orange (YELLOW) Urine Clarity Clear (CLEAR) Urine pH 5.0 (5.0-9.0) Ur Specific [place] >=1.030 A (1.005-1.025) Urine Protein 100 A (NEG/TRACE) mg/dL Urine Glucose (UA) 100 A (NEGATIVE) mg/dL Urine Ketones Trace A (NEGATIVE) mg/dL Urine Occult Blood Moderate A (NEGATIVE) Urine Nitrite Positive A (NEGATIVE) Urine Bilirubin Small A (NEGATIVE) Urine Urobilinogen 1.0 (0.2-1.0) EU/dL Ur Leukocyte Esterase Trace A (NEGATIVE) Urine RBC 10-20 A (0-2) #/HPF Urine WBC 0-2 A (NONE SEEN) #/HPF Ur Squamous Epith Cells Rare (NONE/RARE) #/LPF Urine Crystals None seen (None Seen) #/HPF Urine Bacteria Large A (NONE SEEN) #/HPF Urine Casts None seen (NONE SEEN) #/LPF Urine Mucus None seen (NONE SEEN) Ur Culture Indicated? Already ordered Stl C. cayetanensis PCR Not detected (NOT DETECTE) Stool Rotavirus (PCR) Not detected (NOT DETECTE) Stool Adenovirus (PCR) Not detected (NOT DETECTE) Stool Astrovirus (PCR) Not detected (NOT DETECTE) Stool Campylobacter PCR Not detected (NOT DETECTE) Stool Cryptosporidium PCR Not detected (NOT DETECTE) St Sh/Enteroin Ecoli PCR Not detected (NOT DETECTE) Stl Enterotoxigenic E PCR Not detected (NOT DETECTE) Stool EPEC (PCR) Not detected (NOT DETECTE) Stl E. histolytica PCR Not detected (NOT DETECTE) Stool Giardia Lamblia PCR Not detected (NOT DETECTE) Stl P. shigelloides PCR Not detected (NOT DETECTE) Stool Salmonella PCR Not detected (NOT DETECTE) Stool Sapovirus (PCR) Not detected (NOT DETECTE) Stl Shiga-like Tx 1 PCR Not detected (NOT DETECTE) St Y.enterocolitica PCR Not detected (NOT DETECTE) Stl Vibrio cholerae PCR Not detected (NOT DETECTE) Stl Enteroaggr Ecoli PCR Not detected (NOT DETECTE) Stl Norovirus GI/GII PCR Not detected (NOT DETECTE) Specimen Source Stool C. difficile Toxin A&B Not detected (NOT DETECTE) Vibrio Culture Not detected (NOT DETECTE) Blood Type A Positive Antibody Screen Negative Crossmatch See Detail ECG Data Attestation: I personally reviewed and interpreted this ECG as follows: (EKG interpretation. Ventricular paced rhythm 85 beats a minute. Left axis deviation. No acute ST elevation or ectopy, QTc of 452) Discharge Plan Discharge Chief Complaint: Recheck/Abnormal Lab/Rx Clinical Impression: Anemia requiring transfusions, Chronic wound of extremity, Anasarca, Hypotension, End-stage renal disease (ESRD), UTI (urinary tract infection) Patient Disposition: [facility] Time of Disposition Decision: 13:54 Discharge location: Dr Roula Carson, progressive unit Condition: Serious
[2024-02-27] MEDS: ALBUMIN HUMAN 25 GM/100 ML PREMIX IV (10:32)
[2024-02-27] MEDS: 0.9 % SODIUM CHLORIDE 500 ML IV (10:35)
[2024-02-27 10:41] LABS: Basophils Percent Auto 0.3 % (0.2-2.0); Eosinophils Absolute Auto 0.3 10^3/uL (0.0-0.7); Eosinophils Percent Auto 3.2 % (0.9-7.0); Hemoglobin 7.1 g/dL (14.0-18.0); Immature Granulocytes Abs Auto 0.03 10^3/uL (0.00-0.03); Immature Granulocytes Pct Auto 0.3 % (0.0-0.5); Lymphocytes Absolute Auto 1.7 10^3/uL (1.2-3.8); Lymphocytes Percent Auto 16.9 % (20.5-60.0); Mean Corpuscular HGB Conc 31.8 g/dL (29.9-35.2); Mean Corpuscular Volume 87.8 fL (80.0-94.0); Mean Platelet Volume 13.2 fL (9.5-13.5); Monocytes Absolute Auto 0.6 10^3/uL (0.3-0.8); Monocytes Percent Auto 6.4 % (1.7-12.0); Neutrophils Absolute Auto 7.1 10^3/uL (1.4-6.5); Neutrophils Percent Auto 72.9 % (43.0-75.0); Platelet Count 54 10^3/uL (150-450); Red Blood Count 2.54 10^6/uL (4.70-6.10); Red Cell Distribution Width 17.2 % (11.0-15.0); White Blood Count 9.8 10^3/uL (4.0-11.0)
[2024-02-27 10:44] LABS: Adenovirus F 40/41 NOT DETECTED (NOT DETECTE); Astrovirus NOT DETECTED (NOT DETECTE); Campylobacter NOT DETECTED (NOT DETECTE); Cryptosporidium NOT DETECTED (NOT DETECTE); Cyclospora cayetanensis NOT DETECTED (NOT DETECTE); Entamoeba histolytica NOT DETECTED (NOT DETECTE); Enteroaggregative E.coli NOT DETECTED (NOT DETECTE); Enteropathogenic E.coli NOT DETECTED (NOT DETECTE); Enterotoxigenic E. coli NOT DETECTED (NOT DETECTE); Giardia lamblia NOT DETECTED (NOT DETECTE); Norovirus GI/GII NOT DETECTED (NOT DETECTE); Plesiomonas shigelloides NOT DETECTED (NOT DETECTE); Rotavirus A NOT DETECTED (NOT DETECTE); Salmonella NOT DETECTED (NOT DETECTE); Sapovirus NOT DETECTED (NOT DETECTE); Shiga-like toxin-producing E.C NOT DETECTED (NOT DETECTE); Shigella/Enteroinvasive E.coli NOT DETECTED (NOT DETECTE); Vibrio NOT DETECTED (NOT DETECTE); Vibrio cholerae NOT DETECTED (NOT DETECTE); Yersinia enterocolitica NOT DETECTED (NOT DETECTE)
[2024-02-27 10:45] LABS: Hematocrit 22.3 % (42.0-54.0)
[2024-02-27 11:01] LABS: Alanine Aminotransferase 12 U/L (16-63); Albumin Globulin Ratio 0.5; Alkaline Phosphatase 152 U/L (46-116); Anion Gap 18.6; Aspartate Amino Transferase 14 U/L (15-37); BUN Creatinine Ratio 12.4; Bilirubin Total 0.5 mg/dL (0.2-1.0); Calcium 7.6 mg/dL (8.5-10.1); Carbon Dioxide 23.4 mmol/L (21.0-32.0); Chloride 100 mmol/L (98-107); Estimated GFR (African America 14 (>=60); Estimated GFR (Non-African Ame 11 (>=60); Globulin 3.8 g/dL; Glucose 169 mg/dL (74-106); Magnesium 1.8 mg/dL (1.8-2.4); Sodium 138 mmol/L (136-145); Total Protein 5.8 g/dL (6.4-8.2); Troponin I High Sensitivity 33.2 pg/mL (4.0-76.1)
[2024-02-27 11:06] LABS: INR 1.36; Prothrombin Time 14.2 sec (9.0-11.6)
[2024-02-27 11:12] LABS: PROCALCITONIN 0.23 ng/mL (0.00-0.50)
[2024-02-27 11:17] LABS: Lactate/Lactic Acid 4.5 mmol/L (0.4-2.0)
[2024-02-27 11:18] LABS: Partial Thromboplastin Time 42.1 sec (22.3-36.2)
[2024-02-27 11:32] LABS: NT Pro B Type Natriuretic Pept >35000.0 pg/mL (<=900.0)
[2024-02-27] MEDS: FUROSEMIDE 400 MG in 0.9 % SODIUM CHLORIDE 160 ML 20 MG IV (11:40)
[2024-02-27 12:24] LABS: Bilirubin Urine SMALL (NEGATIVE); Blood Urine MODERATE (NEGATIVE); Clarity Urine CLEAR (CLEAR); Color Urine DK. ORANGE (YELLOW); Glucose Urine UA 100 mg/dL (NEGATIVE); Ketones Urine TRACE mg/dL (NEGATIVE); Leukocyte Esterase Urine TRACE (NEGATIVE); Nitrite Urine POSITIVE (NEGATIVE); Protein Urine 100 mg/dL (NEG/TRACE); Specific Gravity Urine >=1.030 (1.005-1.025); Urine Microscopic Indicated YES
[2024-02-27 12:38] LABS: Bacteria Urine LARGE #/HPF (NONE SEEN); Cast Seen? NONE SEEN #/LPF (NONE SEEN); Crystals Seen? None Seen #/HPF (None Seen); Mucus Urine NONE SEEN (NONE SEEN); Squamous Epithelial Cell Urine RARE #/LPF (NONE/RARE); Urine Culture Indicated ALREADY ORDERED; WBC Urine 0-2 #/HPF (NONE SEEN)
[2024-02-27] MEDS: DIPHENOXYLATE HCL 2.5 MG/ATROPINE 0.025 MG TABLET 1 TAB PO (13:12)
[2024-02-27] MEDS: 0.9 % SODIUM CHLORIDE 250 ML IV.SOLN 75 ML IV (13:43)
[2024-02-27] MEDS: HYDROCODONE/ACET 5-325 MG TABLET 1 TAB PO (14:02)
[2024-02-27] MEDS: CEFTRIAXONE 1,000 MG in 0.9 % SODIUM CHLORIDE 50 ML 100 MG IV (14:37)
[2024-02-27 14:44] LABS: Lactate/Lactic Acid 3.7 mmol/L (0.4-2.0)
[2024-03-04 01:07] LABS: Lactoferrin, Fecal, Quant. 8.14 ug/mL(g) (0.00-7.24)
[2024-03-04 22:07] LABS: Ova + Parasite Exam Final report (.)
== END 2024-02-27 15:05 | disposition short-term general hospital (02) ==
PROVIDERS: Emergency Provider Emergency Medicine; PCP Family Medicine
DX: D64.9 Anemia, unspecified (principal); R60.1 Generalized edema; I95.9 Hypotension, unspecified; N39.0 Urinary tract infection, site not specified; E11.22 Type 2 diabetes mellitus with diabetic chronic kidney disease; I13.2 Hypertensive heart and chronic kidney disease with heart failure and with stage 5 chronic kidney disease, or end stage renal disease; N18.6 End stage renal disease; I50.22 Chronic systolic (congestive) heart failure; E03.9 Hypothyroidism, unspecified; I48.0 Paroxysmal atrial fibrillation; R19.7 Diarrhea, unspecified; S91.302A Unspecified open wound, left foot, initial encounter; J44.9 Chronic obstructive pulmonary disease, unspecified; S91.301A Unspecified open wound, right foot, initial encounter; S51.812A Laceration without foreign body of left forearm, initial encounter; L89.151 Pressure ulcer of sacral region, stage 1; E66.9 Obesity, unspecified; Z68.34 Body mass index [BMI] 34.0-34.9, adult; L89.312 Pressure ulcer of right buttock, stage 2; E78.5 Hyperlipidemia, unspecified; I25.10 Atherosclerotic heart disease of native coronary artery without angina pectoris; Z99.2 Dependence on renal dialysis; Z95.0 Presence of cardiac pacemaker; Z79.899 Other long term (current) drug therapy; Z79.01 Long term (current) use of anticoagulants; Z79.4 Long term (current) use of insulin; Z79.890 Hormone replacement therapy; Z89.412 Acquired absence of left great toe; Z89.422 Acquired absence of other left toe(s); Z79.82 Long term (current) use of aspirin
CPT/HCPCS: 36415; 36430; 51702; 71045; 80053; 81001; 82800; 83605; 83631; 83735; 83880; 84145; 84484; 85025; 85610; 85730; 86850; 86900; 86901; 87040; 87045; 87086; 87177; 87209; 87493; 87507; 93005; 96365; 96366; 96367; 96375; 99285; P9016; P9047

== ENCOUNTER 2024-03-05 01:14 | Outpatient (REF) | payer MEDICARE, SELFPAY ==
[2024-03-05 08:43] LABS: Creatine Kinase 17 U/L (39-308); Estimated GFR (African America 14 (>=60); Estimated GFR (Non-African Ame 11 (>=60)
== END 2024-03-05 01:15 | disposition home or self-care (01) ==
LOC: LAB 01:14
PROVIDERS: PCP Family Medicine; Visit Provider Family Medicine
DX: A41.9 Sepsis, unspecified organism (principal)
CPT/HCPCS: 36415; 82550; 82565; 84520

== ENCOUNTER 2024-03-10 00:20 | Outpatient (REF) | payer MEDICARE, SELFPAY ==
[2024-03-10 08:39] LABS: Creatine Kinase 22 U/L (39-308); Estimated GFR (African America 11 (>=60); Estimated GFR (Non-African Ame 9 (>=60)
[2024-03-10 08:46] LABS: NT Pro B Type Natriuretic Pept >35000.0 pg/mL (<=900.0)
== END 2024-03-10 00:21 | disposition home or self-care (01) ==
LOC: LAB 00:20
PROVIDERS: PCP Family Medicine; Visit Provider Family Medicine
DX: A41.9 Sepsis, unspecified organism (principal)
CPT/HCPCS: 36415; 82550; 82565; 83880

== ENCOUNTER 2024-03-12 01:16 | Outpatient (REF) | payer MEDICARE, SELFPAY ==
[2024-03-12 07:46] LABS: Basophils Absolute Auto 0.1 10^3/uL (0.0-0.1); Basophils Percent Auto 0.4 % (0.2-2.0); Eosinophils Absolute Auto 0.5 10^3/uL (0.0-0.7); Eosinophils Percent Auto 3.7 % (0.9-7.0); Hemoglobin 8.2 g/dL (14.0-18.0); Immature Granulocytes Abs Auto 0.04 10^3/uL (0.00-0.03); Immature Granulocytes Pct Auto 0.3 % (0.0-0.5); Lymphocytes Absolute Auto 2.1 10^3/uL (1.2-3.8); Lymphocytes Percent Auto 15.6 % (20.5-60.0); Mean Corpuscular HGB Conc 30.4 g/dL (29.9-35.2); Mean Corpuscular Volume 92.2 fL (80.0-94.0); Mean Platelet Volume 12.6 fL (9.5-13.5); Monocytes Absolute Auto 1.1 10^3/uL (0.3-0.8); Monocytes Percent Auto 8.4 % (1.7-12.0); Neutrophils Absolute Auto 9.5 10^3/uL (1.4-6.5); Neutrophils Percent Auto 71.6 % (43.0-75.0); Platelet Count 167 10^3/uL (150-450); Red Blood Count 2.93 10^6/uL (4.70-6.10); Red Cell Distribution Width 21.5 % (11.0-15.0); White Blood Count 13.2 10^3/uL (4.0-11.0)
== END 2024-03-12 01:17 | disposition home or self-care (01) ==
LOC: LAB 01:16
PROVIDERS: PCP Family Medicine; Visit Provider Family Medicine
DX: I10 Essential (primary) hypertension (principal)
CPT/HCPCS: 36415; 85025

== ENCOUNTER 2024-03-14 02:21 | Outpatient (REF) | payer MEDICARE, SELFPAY ==
[2024-03-14 09:28] LABS: Basophils Absolute Auto 0.1 10^3/uL (0.0-0.1); Basophils Percent Auto 0.5 % (0.2-2.0); Eosinophils Absolute Auto 0.4 10^3/uL (0.0-0.7); Hematocrit 29.5 % (42.0-54.0); Hemoglobin 8.8 g/dL (14.0-18.0); Immature Granulocytes Abs Auto 0.08 10^3/uL (0.00-0.03); Immature Granulocytes Pct Auto 0.6 % (0.0-0.5); Lymphocytes Absolute Auto 1.6 10^3/uL (1.2-3.8); Lymphocytes Percent Auto 12.6 % (20.5-60.0); Mean Corpuscular HGB Conc 29.8 g/dL (29.9-35.2); Mean Corpuscular Hemoglobin 27.8 pg (25.9-34.0); Mean Corpuscular Volume 93.4 fL (80.0-94.0); Mean Platelet Volume 11.5 fL (9.5-13.5); Monocytes Absolute Auto 0.8 10^3/uL (0.3-0.8); Monocytes Percent Auto 6.6 % (1.7-12.0); Neutrophils Absolute Auto 9.8 10^3/uL (1.4-6.5); Neutrophils Percent Auto 76.7 % (43.0-75.0); Platelet Count 259 10^3/uL (150-450); White Blood Count 12.8 10^3/uL (4.0-11.0)
[2024-03-14 11:55] LABS: Red Blood Count 3.16 10^6/uL (4.70-6.10)
== END 2024-03-14 02:22 | disposition home or self-care (01) ==
LOC: LAB 02:21
PROVIDERS: PCP Family Medicine; Visit Provider Family Medicine
DX: Z51.81 Encounter for therapeutic drug level monitoring (principal); Z79.899 Other long term (current) drug therapy
CPT/HCPCS: 36415; 85025

== ENCOUNTER 2024-03-14 09:34 | Outpatient (OUT) | payer MEDICARE, SELFPAY | END 2024-03-14 09:35 | disposition home or self-care (01) | LOC: WC 09:34 | PROVIDERS: PCP Family Medicine; Visit Provider Podiatrist Foot & Ankle Surgery | DX: Z51.81 Encounter for therapeutic drug level monitoring (principal); Z79.899 Other long term (current) drug therapy; E11.621 Type 2 diabetes mellitus with foot ulcer; L97.422 Non-pressure chronic ulcer of left heel and midfoot with fat layer exposed; L97.528 Non-pressure chronic ulcer of other part of left foot with other specified severity | CPT/HCPCS: 36415; 85025; G0463 ==

== ENCOUNTER 2024-03-17 05:03 | Outpatient (REF) | payer MEDICARE, SELFPAY ==
[2024-03-17 13:46] LABS: Basophils Absolute Auto 0.1 10^3/uL (0.0-0.1); Basophils Percent Auto 0.4 % (0.2-2.0); Eosinophils Absolute Auto 0.4 10^3/uL (0.0-0.7); Eosinophils Percent Auto 2.7 % (0.9-7.0); Hematocrit 33.3 % (42.0-54.0); Hemoglobin 10.1 g/dL (14.0-18.0); Immature Granulocytes Abs Auto 0.09 10^3/uL (0.00-0.03); Immature Granulocytes Pct Auto 0.6 % (0.0-0.5); Lymphocytes Absolute Auto 2.2 10^3/uL (1.2-3.8); Lymphocytes Percent Auto 15.5 % (20.5-60.0); Mean Corpuscular HGB Conc 30.3 g/dL (29.9-35.2); Mean Corpuscular Hemoglobin 28.5 pg (25.9-34.0); Mean Corpuscular Volume 94.1 fL (80.0-94.0); Mean Platelet Volume 10.9 fL (9.5-13.5); Monocytes Absolute Auto 0.8 10^3/uL (0.3-0.8); Monocytes Percent Auto 5.6 % (1.7-12.0); Neutrophils Absolute Auto 10.6 10^3/uL (1.4-6.5); Neutrophils Percent Auto 75.2 % (43.0-75.0); Platelet Count 260 10^3/uL (150-450); Red Blood Count 3.54 10^6/uL (4.70-6.10); Red Cell Distribution Width 23.9 % (11.0-15.0); White Blood Count 14.1 10^3/uL (4.0-11.0)
== END 2024-03-17 05:04 | disposition home or self-care (01) ==
LOC: LAB 05:03
PROVIDERS: PCP Family Medicine; Visit Provider Family Medicine
DX: A41.9 Sepsis, unspecified organism (principal)
CPT/HCPCS: 36415; 85025

== ENCOUNTER 2024-03-19 04:34 | Outpatient (RCR) | payer MEDICARE, SELFPAY | END 2024-04-18 11:49 | disposition home or self-care (01) | LOC: MM 04:34 | PROVIDERS: PCP Family Medicine; Visit Provider Internal Medicine | DX: Z51.81 Encounter for therapeutic drug level monitoring (principal); Z79.01 Long term (current) use of anticoagulants; I48.91 Unspecified atrial fibrillation ==

== ENCOUNTER 2024-03-21 12:35 | Outpatient (OUT) | payer MEDICARE, SELFPAY | END 2024-03-21 12:36 | disposition home or self-care (01) | LOC: PST 12:35 | PROVIDERS: PCP Family Medicine; Visit Provider Podiatrist Foot & Ankle Surgery | DX: Z01.818 Encounter for other preprocedural examination (principal); L97.529 Non-pressure chronic ulcer of other part of left foot with unspecified severity; L97.412 Non-pressure chronic ulcer of right heel and midfoot with fat layer exposed; E11.621 Type 2 diabetes mellitus with foot ulcer ==

== ENCOUNTER 2024-04-07 01:47 | Outpatient (REF) | payer MEDICARE, SELFPAY ==
[2024-04-07 07:50] LABS: Basophils Absolute Auto 0.1 10^3/uL (0.0-0.1); Basophils Percent Auto 0.3 % (0.2-2.0); Eosinophils Absolute Auto 0.2 10^3/uL (0.0-0.7); Eosinophils Percent Auto 1.4 % (0.9-7.0); Hematocrit 36.5 % (42.0-54.0); Hemoglobin 11.1 g/dL (14.0-18.0); Immature Granulocytes Abs Auto 0.22 10^3/uL (0.00-0.03); Immature Granulocytes Pct Auto 1.3 % (0.0-0.5); Lymphocytes Absolute Auto 1.2 10^3/uL (1.2-3.8); Lymphocytes Percent Auto 7.3 % (20.5-60.0); Mean Corpuscular HGB Conc 30.4 g/dL (29.9-35.2); Mean Corpuscular Hemoglobin 28.4 pg (25.9-34.0); Mean Corpuscular Volume 93.4 fL (80.0-94.0); Mean Platelet Volume 10.8 fL (9.5-13.5); Monocytes Absolute Auto 0.8 10^3/uL (0.3-0.8); Monocytes Percent Auto 4.6 % (1.7-12.0); Neutrophils Absolute Auto 14.4 10^3/uL (1.4-6.5); Neutrophils Percent Auto 85.1 % (43.0-75.0); Platelet Count 245 10^3/uL (150-450); Red Blood Count 3.91 10^6/uL (4.70-6.10); Red Cell Distribution Width 19.8 % (11.0-15.0); White Blood Count 16.9 10^3/uL (4.0-11.0)
== END 2024-04-07 01:48 | disposition home or self-care (01) ==
LOC: LAB 01:47
PROVIDERS: PCP Family Medicine; Visit Provider Family Medicine
DX: A41.9 Sepsis, unspecified organism (principal)
CPT/HCPCS: 36415; 85025

== ENCOUNTER 2024-04-07 08:20 | Day surgery (SDC) | payer MEDICARE, SELFPAY ==
[2024-04-07 09:30] VITALS: BP 134/68; PULSE 86; TEMP 35.6; O2SAT 96
[2024-04-07 09:38] LABS: Glucometer 265 mg/dL (74-106)
--- NOTE | 2024-04-07 10:00 | XR_ITS ---
The [address] [address] Patient Name: ADWOA PORTER MRN: [id number] date: 1955 Sex: M Assigned Patient [facility]: [facility] Current Patient Location: [facility] Accession/Order Number: [id number] Exam Date: 04/07/2024 09:25 Report Date: 04/07/2024 09:47 At the request of: JORGE ARROYO Procedure: XR chest 1V EXAMINATION: XR chest 1V HISTORY: verify line placement COMPARISON: No relevant comparison available. FINDINGS: LUNGS: Complete opacification of the mid and lower left lung. Mild opacities within medial right lung base. VASCULATURE: No increased pulmonary vasculature. PLEURA: Suspect left pleural effusion. CARDIAC: Obscured. Stable cardiac pacer. MEDIASTINUM: No visible mass or adenopathy. BONES: No fracture or visible bone lesion. OTHER: Right jugular dual-lumen central venous catheter with tip projecting over caudal aspect of right atrium. XR/XR chest 1V IMPRESSION: 1. Stable right jugular central venous catheter with tip suspected to be within lower aspect of the right atrium. 2. Dense opacification of mid and lower left lung; large pleural effusion with atelectasis versus marked infiltrates; significantly increased since prior study. Mild findings within right lung base. Electronically authenticated by: BIANCA STUART Date: 04/07/2024 09:47
--- NOTE | 2024-04-07 10:00 | PC.NURSE ---
0952: notified that pt last received dialysis on 04/04/24 per pts daughter.
--- NOTE | 2024-04-07 11:21 | PC.NURSE ---
Upon arrival to unit pt appeared dusky,pt's oxygen tank was not turned on from shelter that he was sent from. RubyRN notified DEE Noe DON of pts condition upon arrival. pt evaluated by per nursing request. spoke with pt and his family regarding the pts current health condition and explained to them why they would not be moving forward with the surgery today. DEE Noe notified that the pt would by returning to their facility also updated on pts condition. pt scheduled to receive dialysis today at 1330 per shelter. family agreeable to the plan and pt was discharged at 1110 to [place],transport for the [facility].
== END 2024-04-07 11:10 | disposition home or self-care (01) ==
LOC: SURGOUT 04-10 15:09
PROVIDERS: PCP Family Medicine; Visit Provider Podiatrist Foot & Ankle Surgery
PROC: (CPT 11043; principal; 2024-04-07 11:15)
DX: E11.621 Type 2 diabetes mellitus with foot ulcer (principal); Z53.8 Procedure and treatment not carried out for other reasons; L97.529 Non-pressure chronic ulcer of other part of left foot with unspecified severity; L97.412 Non-pressure chronic ulcer of right heel and midfoot with fat layer exposed; A41.9 Sepsis, unspecified organism
CPT/HCPCS: 11043; 36415; 71045; 82948; 85025; 85610; 85730

== ENCOUNTER 2024-04-09 01:44 | Outpatient (REF) | payer MEDICARE, SELFPAY ==
[2024-04-09 07:40] LABS: Basophils Absolute Auto 0.1 10^3/uL (0.0-0.1); Basophils Percent Auto 0.3 % (0.2-2.0); Eosinophils Absolute Auto 0.3 10^3/uL (0.0-0.7); Eosinophils Percent Auto 1.8 % (0.9-7.0); Hematocrit 36.2 % (42.0-54.0); Hemoglobin 10.7 g/dL (14.0-18.0); Immature Granulocytes Abs Auto 0.21 10^3/uL (0.00-0.03); Immature Granulocytes Pct Auto 1.3 % (0.0-0.5); Lymphocytes Absolute Auto 1.6 10^3/uL (1.2-3.8); Lymphocytes Percent Auto 9.8 % (20.5-60.0); Mean Corpuscular HGB Conc 29.6 g/dL (29.9-35.2); Mean Corpuscular Hemoglobin 27.3 pg (25.9-34.0); Mean Corpuscular Volume 92.3 fL (80.0-94.0); Mean Platelet Volume 10.5 fL (9.5-13.5); Monocytes Absolute Auto 0.7 10^3/uL (0.3-0.8); Monocytes Percent Auto 4.2 % (1.7-12.0); Neutrophils Absolute Auto 13.4 10^3/uL (1.4-6.5); Neutrophils Percent Auto 82.6 % (43.0-75.0); Platelet Count 252 10^3/uL (150-450); Red Blood Count 3.92 10^6/uL (4.70-6.10); Red Cell Distribution Width 19.3 % (11.0-15.0); White Blood Count 16.3 10^3/uL (4.0-11.0)
== END 2024-04-09 01:45 | disposition home or self-care (01) ==
LOC: LAB 01:44
PROVIDERS: PCP Family Medicine; Visit Provider Family Medicine
DX: J18.9 Pneumonia, unspecified organism (principal)
CPT/HCPCS: 36415; 85025

== ENCOUNTER 2024-04-21 00:17 | Outpatient (RCR) | payer MEDICARE, SELFPAY | END 2024-05-16 10:17 | disposition home or self-care (01) | LOC: MM 00:17 | PROVIDERS: PCP Family Medicine; Visit Provider Internal Medicine | DX: Z51.81 Encounter for therapeutic drug level monitoring (principal); Z79.01 Long term (current) use of anticoagulants; I48.91 Unspecified atrial fibrillation ==

== ENCOUNTER 2024-05-02 01:53 | Outpatient (REF) | payer MEDICARE, SELFPAY ==
[2024-05-02 08:00] LABS: Basophils Percent Auto 0.2 % (0.2-2.0); Eosinophils Absolute Auto 0.5 10^3/uL (0.0-0.7); Eosinophils Percent Auto 3.6 % (0.9-7.0); Hemoglobin 10.2 g/dL (14.0-18.0); Immature Granulocytes Abs Auto 0.05 10^3/uL (0.00-0.03); Immature Granulocytes Pct Auto 0.3 % (0.0-0.5); Mean Corpuscular Hemoglobin 27.3 pg (25.9-34.0); Mean Corpuscular Volume 90.9 fL (80.0-94.0); Mean Platelet Volume 10.1 fL (9.5-13.5); Monocytes Percent Auto 6.8 % (1.7-12.0); Neutrophils Absolute Auto 10.9 10^3/uL (1.4-6.5); Neutrophils Percent Auto 75.1 % (43.0-75.0); Platelet Count 259 10^3/uL (150-450); Red Blood Count 3.74 10^6/uL (4.70-6.10); Red Cell Distribution Width 17.6 % (11.0-15.0); White Blood Count 14.5 10^3/uL (4.0-11.0)
[2024-05-02 08:16] LABS: Alanine Aminotransferase 26 U/L (16-63); Albumin Globulin Ratio 0.3; Albumin Level 1.7 g/dL (3.4-5.0); Alkaline Phosphatase 224 U/L (46-116); Anion Gap 14.2; Aspartate Amino Transferase 24 U/L (15-37); BUN Creatinine Ratio 7.7; Bilirubin Total 0.6 mg/dL (0.2-1.0); Calcium 7.8 mg/dL (8.5-10.1); Carbon Dioxide 26.6 mmol/L (21.0-32.0); Chloride 100 mmol/L (98-107); Estimated GFR (African America 17 (>=60); Estimated GFR (Non-African Ame 14 (>=60); Globulin 5.2 g/dL; Glucose 88 mg/dL (74-106); Potassium 3.8 mmol/L (3.5-5.1); Sodium 137 mmol/L (136-145); Total Protein 6.9 g/dL (6.4-8.2)
== END 2024-05-02 01:54 | disposition home or self-care (01) ==
LOC: LAB 01:53
PROVIDERS: PCP Family Medicine; Visit Provider Family Medicine
DX: J18.9 Pneumonia, unspecified organism (principal)
CPT/HCPCS: 36415; 80053; 85025

== ENCOUNTER 2024-05-15 10:26 | Emergency (ER) | payer MEDICARE, SELFPAY ==
[2024-05-15] VITALS (54 sets, daily range): BP systolic 105–126; BP diastolic 62–88; PULSE 85–89; O2SAT 82–100; BMI 25.1
--- NOTE | 2024-05-15 11:23 | ED.SOB1 ---
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 This patient has a number mild settings including an extremely low cardiac output with ejection fraction of 20%. The chief complaint today was wheezing cough congestion and bronchospasm. Patient is on dialysis. Also has history of. Anemia. Related Data Home Medications ?Medication ?Instructions ?Recorded ?Confirmed aspirin 81 mg tablet,delayed 81 mg PO DAILY 05/24/23 04/07/24 release (Adult Low Dose Aspirin) atorvastatin 80 mg tablet 80 mg PO QPM 05/24/23 04/07/24 hydrocodone 5 mg-acetaminophen 325 1 tab PO Q8H PRN pain, moderate 05/24/23 04/07/24 mg tablet levothyroxine 50 mcg tablet 50 mcg PO DAILY 05/24/23 04/07/24 cyanocobalamin (vitamin B-12) 1,000 mcg PO DAILY 06/02/23 04/07/24 1,000 mcg tablet,extended release nitroglycerin 0.4 mg sublingual 0.4 mg sublingual Q5M PRN chest 06/02/23 03/21/24 tablet pain bumetanide 2 mg tablet 2 mg PO BID 01/28/24 04/07/24 heparin, porcine (PF) 10 unit/mL 10 unit IV TID PRN IV line flush 01/28/24 03/21/24 intravenous syringe (Heparin Lock Flush (Porcine) (PF)) insulin lispro 100 unit/mL 1 sliding scale dose subcut 01/28/24 04/07/24 subcutaneous pen (Humalog KwikPen USEASDIRECTD (U-100) Insulin) sodium chloride 0.9 % (flush) 10 ml IV TID 01/28/24 04/07/24 (Normal Saline Flush 0.9 % injection syringe) Lactobacillus rhamnosus GG 10 1 cap PO DAILY 03/21/24 04/07/24 billion cell capsule (Culturelle) acetaminophen 325 mg capsule 650 mg PO Q6H PRN pain 03/21/24 04/07/24 albuterol sulfate 0.63 mg/3 mL 0.63 mg inhalation Q6H 03/21/24 03/21/24 solution for nebulization albuterol sulfate 2.5 mg/3 mL 2.5 mg inhalation Q4H PRN 03/21/24 04/07/24 (0.083 %) solution for nebulization shortness of breath or wheezing albuterol sulfate 90 mcg/actuation 2 inh inhalation Q4H PRN shortness 03/21/24 04/07/24 aerosol inhaler of breath or wheezing budesonide-formoterol HFA 160 2 inh inhalation BID 03/21/24 04/07/24 mcg-4.5 mcg/actuation aerosol inhaler calcium acetate 667 mg tablet 667 mg PO TID 03/21/24 04/07/24 carvedilol 3.125 mg tablet 3.125 mg PO BID 03/21/24 04/07/24 darbepoetin laureano in polysorbat 60 60 mcg subcut QWEEK 03/21/24 04/07/24 mcg/mL in polysorbate injection (Aranesp) doxycycline monohydrate 100 mg 100 mg PO BID 03/21/24 03/21/24 capsule folic acid 1 mg tablet 1 mg PO DAILY 03/21/24 04/07/24 gabapentin 100 mg capsule 200 mg PO BID 03/21/24 04/07/24 guaifenesin 600 mg tablet, 600 mg PO BID 03/21/24 03/21/24 extended release 12 hr (Mucinex) insulin glargine 100 unit/mL (3 8 unit subcut DAILY 03/21/24 04/07/24 mL) subcutaneous pen loperamide 2 mg capsule 2 mg PO Q6H PRN loose stool 03/21/24 04/07/24 midodrine 10 mg tablet 10 mg PO TID 03/21/24 04/07/24 nystatin 100,000 unit/gram topical 1 applic topical QID 03/21/24 04/07/24 powder omeprazole 20 mg capsule,delayed 20 mg PO DAILY 03/21/24 04/07/24 release tramadol 50 mg tablet 50 mg PO BID 03/21/24 04/07/24 zinc oxide 1 applic topical QID 03/21/24 03/21/24 Allergies Allergy/AdvReac Type Severity Reaction Status Date / Time GABRIELA Inhibitors AdvReac Mild COUGH Verified 03/21/24 11:17 PFSH PFSH Medical History (Updated 05/15/24 @ 15:23 by Paddy Choudhury MD) Dialysis patient ?Z99.2 - Dependence on renal dialysis (ICD-10) Open wound of finger of right hand ?S61.209A - Unspecified open wound of unspecified finger without damage to nail, initial encounter (ICD-10) Chronic wound of extremity Cellulitis and abscess of foot ?L03.119 - Cellulitis of unspecified part of limb (ICD-10) ?L02.619 - Cutaneous abscess of unspecified foot (ICD-10) Hypokalemia ?E87.6 - Hypokalemia (ICD-10) Hyponatremia ?E87.1 - Hypo-osmolality and hyponatremia (ICD-10) Generalized weakness ?R53.1 - Weakness (ICD-10) Chronic wound of extremity Dyspnea ?R06.00 - Dyspnea, unspecified (ICD-10) CKD (chronic kidney disease) stage 4, GFR 15-29 ml/min ?N18.4 - Chronic kidney disease, stage 4 (severe) (ICD-10) HLD (hyperlipidemia) ?E78.5 - Hyperlipidemia, unspecified (ICD-10) Cardiac defibrillator in place ?Z95.810 - Presence of automatic (implantable) cardiac defibrillator (ICD-10) Pacemaker ?Z95.0 - Presence of cardiac pacemaker (ICD-10) COPD (chronic obstructive pulmonary disease) ?J44.9 - Chronic obstructive pulmonary disease, unspecified (ICD-10) CAD (coronary artery disease) ?I25.10 - Atherosclerotic heart disease of [place] coronary artery without angina pectoris (ICD-10) Benign essential hypertension ?I10 - Essential (primary) hypertension (ICD-10) Anemia in chronic kidney disease ?N18.9 - Chronic kidney disease, unspecified (ICD-10) ?D63.1 - Anemia in chronic kidney disease (ICD-10) Paroxysmal atrial fibrillation ?I48.0 - Paroxysmal atrial fibrillation (ICD-10) Type 2 diabetes mellitus with hyperglycemia ?E11.65 - Type 2 diabetes mellitus with hyperglycemia (ICD-10) Hypothyroid ?E03.9 - Hypothyroidism, unspecified (ICD-10) Chronic kidney disease, stage 3a ?N18.31 - Chronic kidney disease, stage 3a (ICD-10) Chronic HFrEF (heart failure with reduced ejection fraction) ?I50.22 - Chronic systolic (congestive) heart failure (ICD-10) Surgical History (Updated 03/21/24 @ 11:38 by Ashtyn Keys NP) Status post peripherally inserted central catheter (PICC) central line placement ?Z95.828 - Presence of other vascular implants and grafts (ICD-10) H/O foot surgery (01/17/24) ?Z98.890 - Other specified postprocedural states (ICD-10) History of appendectomy ?Z90.49 - Acquired absence of other specified parts of digestive tract (ICD-10) Family History Mother Family history of CHF (congestive heart failure) Brother Family history of cancer Social History Within the past year, how often did you have a drink containing alcohol: never Within the past year, how often did you have six or more drinks on one occasion: never Score interpretation: A score less than 4 is consistent with normal alcohol consumption. 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 Known occupational exposures/hazards: No Highest level of school completed/degree received: high school graduate Do you want help with school or training: No Are you now , , , , never or living with a partner: living with partner In a typical week, how many times do you talk on the telephone with family, friends, or neighbors: 3 or more times per week How often do you get together with friends or relatives: 3 or more times per week How often do you attend sabianist or orthodox services: never Do you belong to any clubs or organizations such as sabianist groups unions, fraternal or athletic groups, or school groups: no Total score: 2 Score interpretation: A score of greater than or equal to 2 indicates the lowest level of social isolation. Little interest or pleasure in doing things: not at all Feeling down, depressed, or hopeless: not at all Feel stressed/tense/nervous/anxious/difficulty sleeping: not at all Due to disability, difficulty making decisions: No Do you think of yourself as: straight/heterosexual Gender Identity: male Exam Narrative Exam Narrative: This patient was seen shortly after arrival here. He has not drawn. His blood pressure is stable pulse oximetry normal on 2 L of oxygen. He is awake alert oriented x 3. His lungs had some scattered rhonchi and decreased breath sounds on the left side. His neck is soft and supple there is no meningeal irritation. Heart sounds somewhat distant he does have a pacemaker in place. He also has a port in his right upper chest wall consistent with his recent dialysis program that he takes Sunday. Skin and integument are normal with no purpura or petechiae. There is no evidence of new trauma or injury. Constitutional Vital Signs, click to edit/add: Last Vital Signs Pulse 85 05/15/24 12:17 Resp 20 05/15/24 10:34 BP 105/67 05/15/24 10:34 Pulse Ox 97 05/15/24 12:17 O2 Del Method Nasal Cannula 05/15/24 12:17 O2 Flow Rate 2 05/15/24 12:17 Course Vital Signs Vital signs: Vital Signs Pulse Rate 88 05/15/24 10:34 Respiratory Rate 20 05/15/24 10:34 Blood Pressure 105/67 05/15/24 10:34 Pulse Oximetry 96 05/15/24 10:34 Oxygen Delivery Method Nasal Cannula 05/15/24 10:34 Oxygen Delivery Flow Rate 2 05/15/24 10:34 Pulse Rate 85 05/15/24 12:17 Respiratory Rate 20 05/15/24 10:34 Blood Pressure 105/67 05/15/24 10:34 Pulse Oximetry 97 05/15/24 12:17 Oxygen Delivery Method Nasal Cannula 05/15/24 12:17 Oxygen Delivery Flow Rate 2 05/15/24 12:17 MDM - SOB/Dyspnea MDM Narrative Medical decision making narrative: This patient presents with end-stage CHF. Ejection fraction is apparently 5 to 10%. He is not a candidate for cardiac transplant. His BNP is chronically elevated. Today's troponin is normal. Chest x-ray findings were noted and so a CT was done in follow-up and suggest that there might be an issue addition to chronic bilateral effusions there may be an infiltrate in the basilar segment. For that reason antibiotics were initiated. He is scheduled for dialysis tomorrow so at best they be taken to a tertiary facility. His family is in agreement with this. I spoke with the hospitalist at [facility] and they have Lab Data Labs: Lab Results 05/15/24 Range/Units 11:25 WBC 13.4 H (4.0-11.0) 10^3/uL RBC 3.94 L (4.70-6.10) 10^6/uL Hgb 10.8 L (14.0-18.0) g/dL Hct 36.7 L (42.0-54.0) % MCV 93.1 (80.0-94.0) fL MCH 27.4 (25.9-34.0) pg MCHC 29.4 L (29.9-35.2) g/dL RDW 17.7 H (11.0-15.0) % Plt Count 238 (150-450) 10^3/uL MPV 10.3 (9.5-13.5) fL Neut % (Auto) 72.3 (43.0-75.0) % Lymph % (Auto) 17.2 L (20.5-60.0) % [place] % (Auto) 6.7 (1.7-12.0) % Eos % (Auto) 2.5 (0.9-7.0) % Baso % (Auto) 0.3 (0.2-2.0) % Neut # (Auto) 9.7 H (1.4-6.5) 10^3/uL Lymph # (Auto) 2.3 (1.2-3.8) 10^3/uL [place] # (Auto) 0.9 H (0.3-0.8) 10^3/uL Eos # (Auto) 0.3 (0.0-0.7) 10^3/uL Baso # (Auto) 0.0 (0.0-0.1) 10^3/uL Abs Immat Gran (auto) 0.14 H (0.00-0.03) 10^3/uL Imm/Tot Granulo (auto) 1.0 H (0.0-0.5) % Sodium 136 (136-145) mmol/L Potassium 3.6 (3.5-5.1) mmol/L Chloride 98 (98-107) mmol/L Carbon Dioxide 27.9 (21.0-32.0) mmol/L Anion Gap 13.7 BUN 22.0 H (7.0-18.0) mg/dL Creatinine 3.43 H (0.70-1.30) mg/dL Est GFR ( Amer) 22 L (>=60) Est GFR (Non-Af Amer) 18 L (>=60) BUN/Creatinine Ratio 6.4 Glucose 194 H (74-106) mg/dL Calcium 8.2 L (8.5-10.1) mg/dL Total Bilirubin 0.7 (0.2-1.0) mg/dL AST 28 (15-37) U/L ALT 22 (16-63) U/L Alkaline Phosphatase 266 H (46-116) U/L Troponin I High Sens 27.5 (4.0-76.1) pg/mL NT-Pro-B Natriuret Pep >41917.0 H* (<=900.0) pg/mL Total Protein 8.0 (6.4-8.2) g/dL Albumin 2.1 L (3.4-5.0) g/dL Globulin 5.9 g/dL Albumin/Globulin Ratio 0.4 Discharge Plan Discharge Chief Complaint: Shortness of Breath/Dyspnea Clinical Impression: Acute dyspnea Patient Disposition: [facility] Time of Disposition Decision: 15:23 Prescriptions / Home Meds: No Action atorvastatin 80 mg tablet 80 mg PO QPM aspirin [Adult Low Dose Aspirin] 81 mg tablet,delayed release (DR/EC) 81 mg PO DAILY hydrocodone-acetaminophen 5-325 mg tablet 1 tab PO Q8H PRN (Reason: pain, moderate) levothyroxine 50 mcg tablet 50 mcg PO DAILY bumetanide 2 mg tablet 2 mg PO BID heparin, porcine (PF) [Heparin LockFlush(Porcine)(PF)] 10 unit/mL syringe 10 unit IV TID PRN (Reason: IV line flush) Patient Comments: post nuclear medicine specialist insulin lispro [Humalog KwikPen Insulin] 100 unit/mL insulin pen 1 sliding scale dose subcut USEASDIRECTD sodium chloride 0.9 % (flush) [Normal Saline Flush] Syringe 10 ml IV TID Rx Instructions: administer before and after IV drug administration as part of [facility] protocol carvedilol 3.125 mg tablet 3.125 mg PO BID Rx Instructions: must administer with a meal/food gabapentin 100 mg capsule 200 mg PO BID acetaminophen 325 mg capsule 650 mg PO Q6H PRN (Reason: pain) albuterol sulfate 90 mcg/actuation HFA aerosol inhaler 2 inh inhalation Q4H PRN (Reason: shortness of breath or wheezing) albuterol sulfate 0.63 mg/3 mL solution for nebulization 0.63 mg inhalation Q6H albuterol sulfate 2.5 mg /3 mL (0.083 %) solution for nebulization 2.5 mg inhalation Q4H PRN (Reason: shortness of breath or wheezing) Aranesp (in polysorbate) 60 mcg/mL solution 60 mcg subcut QWEEK budesonide-formoterol 160-4.5 mcg/actuation HFA aerosol inhaler 2 inh inhalation BID calcium acetate 667 mg tablet 667 mg PO TID Culturelle 10 billion cell capsule 1 cap PO DAILY doxycycline monohydrate 100 mg capsule 100 mg PO BID folic acid 1 mg tablet 1 mg PO DAILY insulin glargine 100 unit/mL (3 mL) insulin pen 8 unit subcut DAILY loperamide 2 mg capsule 2 mg PO Q6H PRN (Reason: loose stool) midodrine 10 mg tablet 10 mg PO TID Rx Instructions: do not give last dose of day after 6PM or within 4 hrs of bedtime guaifenesin [Mucinex] 600 mg tablet extended release 12hr 600 mg PO BID nystatin 100,000 unit/gram powder 1 applic topical QID omeprazole 20 mg capsule,delayed release(DR/EC) 20 mg PO DAILY tramadol 50 mg tablet 50 mg PO BID zinc oxide Ointment 1 applic topical QID nitroglycerin 0.4 mg tablet, sublingual 0.4 mg sublingual Q5M PRN (Reason: chest pain) cyanocobalamin (vitamin B-12) 1,000 mcg tablet extended release 1,000 mcg PO DAILY Print Language: Ghanaian Referrals: VINNIE STEWART [Primary Care Provider] - 1 week
--- NOTE | 2024-05-15 11:29 | ECG_ITS ---
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
--- NOTE | 2024-05-15 11:29 | XR_ITS ---
The [address] [address] Patient Name: ADWOA PORTER MRN: [id number] date: 1955 Sex: M Assigned Patient Location: ER Current Patient Location: ER Accession/Order Number: [id number] Exam Date: 05/15/2024 11:40 Report Date: 05/15/2024 11:54 At the request of: JANE MELGAR Procedure: XR chest 1V EXAMINATION: XR chest 1V HISTORY: chest pain COMPARISON: 04/07/2024 TECHNIQUE: AP portable FINDINGS: LUNGS: The right lung is clear. Moderate left lung infiltrate obscuring the heart border and hemidiaphragm VASCULATURE: No increased pulmonary vasculature. PLEURA: No pneumothorax. Likely left pleural effusion CARDIAC: No cardiomegaly or cardiac silhouette abnormality. MEDIASTINUM: No visible mass or adenopathy. Left pacemaker BONES: No fracture or visible bone lesion. OTHER: Right internal jugular central venous catheter, the tips project over the cavoatrial junction. Interval removal of the right PICC catheter XR/XR chest 1V IMPRESSION: Extensive left lung infiltrates occupying approximately 60% of the left lung, slightly improved from the prior exam. Likely combination of consolidation and pleural effusion Electronically authenticated by: BALBIR CABALLERO Date: 05/15/2024 11:54
[2024-05-15 11:52] LABS: Basophils Percent Auto 0.3 % (0.2-2.0); Eosinophils Absolute Auto 0.3 10^3/uL (0.0-0.7); Eosinophils Percent Auto 2.5 % (0.9-7.0); Hematocrit 36.7 % (42.0-54.0); Hemoglobin 10.8 g/dL (14.0-18.0); Immature Granulocytes Abs Auto 0.14 10^3/uL (0.00-0.03); Lymphocytes Absolute Auto 2.3 10^3/uL (1.2-3.8); Lymphocytes Percent Auto 17.2 % (20.5-60.0); Mean Corpuscular HGB Conc 29.4 g/dL (29.9-35.2); Mean Corpuscular Hemoglobin 27.4 pg (25.9-34.0); Mean Corpuscular Volume 93.1 fL (80.0-94.0); Mean Platelet Volume 10.3 fL (9.5-13.5); Monocytes Absolute Auto 0.9 10^3/uL (0.3-0.8); Monocytes Percent Auto 6.7 % (1.7-12.0); Neutrophils Absolute Auto 9.7 10^3/uL (1.4-6.5); Neutrophils Percent Auto 72.3 % (43.0-75.0); Platelet Count 238 10^3/uL (150-450); Red Blood Count 3.94 10^6/uL (4.70-6.10); Red Cell Distribution Width 17.7 % (11.0-15.0); White Blood Count 13.4 10^3/uL (4.0-11.0)
[2024-05-15 12:02] LABS: Alanine Aminotransferase 22 U/L (16-63); Albumin Level 2.1 g/dL (3.4-5.0); Alkaline Phosphatase 266 U/L (46-116); Anion Gap 13.7; Aspartate Amino Transferase 28 U/L (15-37); BUN Creatinine Ratio 6.4; Bilirubin Total 0.7 mg/dL (0.2-1.0); Calcium 8.2 mg/dL (8.5-10.1); Carbon Dioxide 27.9 mmol/L (21.0-32.0); Chloride 98 mmol/L (98-107); Estimated GFR (African America 22 (>=60); Estimated GFR (Non-African Ame 18 (>=60); Glucose 194 mg/dL (74-106); Potassium 3.6 mmol/L (3.5-5.1); Sodium 136 mmol/L (136-145)
[2024-05-15 12:03] LABS: Albumin Globulin Ratio 0.4; Globulin 5.9 g/dL
[2024-05-15 12:11] LABS: Troponin I High Sensitivity 27.5 pg/mL (4.0-76.1)
[2024-05-15] MEDS: IPRATROPIUM/ALBUTEROL SULFATE 3 ML AMPUL.NEB IH (12:14)
[2024-05-15 12:19] LABS: NT Pro B Type Natriuretic Pept >35000.0 pg/mL (<=900.0)
--- NOTE | 2024-05-15 13:19 | CT_ITS ---
[address] [address] Patient Name: ADWOA PORTER MRN: [id number] date: 1955 Sex: M Assigned Patient Location: ER Current Patient Location: Accession/Order Number: [id number] Exam Date: 05/15/2024 13:08 Report Date: 05/15/2024 13:48 At the request of: JANE MELGAR Procedure: CT chest wo con EXAMINATION: CT chest wo con HISTORY: Left lung consolidation COMPARISON: Plain film same day, CT chest 07/31/2023 TECHNIQUE: Multi-planar CT images were created with IV contrast. Axial, Coronal, and Sagittal images. Dose reduction techniques were achieved by using automated exposure control and/or adjustment of mA and/or kV according to patient size and/or use of iterative reconstruction technique. FINDINGS: LUNGS: Moderate consolidation of the left lower lobe. Additional groundglass opacities are noted in the left upper lobe. Mild patchy and nodular densities are noted in the right lower lobe the most suspicious nodule axial image 61 measures 6.2 mm in diameter. PLEURA: 1 cm right and 8 cm left pleural effusions VASCULATURE: No abnormality. MICHEL: No mass or adenopathy. MEDIASTINUM: No mass or adenopathy. CARDIAC: Marked cardiomegaly. Pacemaker wires. Pericardial effusion measuring up to 2.1 cm Coronary arteries: Heavy calcifications AORTA: No aortic aneurysm. Moderate to heavy calcifications CHEST WALL: No mass or axillary adenopathy. BONES: No bone lesion or fracture. LIMITED ABDOMEN: No suspicious findings. Limited images of the upper abdomen. OTHER: Negative. CT/CT chest wo con IMPRESSION: Small right and large left pleural effusion Partial consolidation of the left lower lobe, consider pneumonia 2.1 cm pericardial effusion with underlying marked cardiomegaly Electronically authenticated by: BALBIR CABALLERO Date: 05/15/2024 13:48
[2024-05-15] MEDS: HYDROMORPHONE HCL 1 MG/ML CARTRIDGE IV (14:29)
[2024-05-15 15:01] LABS: Lactate/Lactic Acid 1.9 mmol/L (0.4-2.0)
[2024-05-15] MEDS: CEFTRIAXONE 1,000 MG in 0.9 % SODIUM CHLORIDE 50 ML 100 MG IV (15:04)
== END 2024-05-15 18:10 | disposition short-term general hospital (02) ==
PROVIDERS: Emergency Provider Emergency Medicine Emergency Medical Services; PCP Family Medicine
DX: R06.00 Dyspnea, unspecified (principal); I50.9 Heart failure, unspecified; Z99.2 Dependence on renal dialysis; Z87.891 Personal history of nicotine dependence; Z95.0 Presence of cardiac pacemaker
CPT/HCPCS: 36415; 71045; 71250; 80048; 80053; 83605; 83880; 84484; 85025; 87040; 93005; 94640; 96365; 96375; 99285; J0696; J1170

== ENCOUNTER 2024-05-19 00:38 | Outpatient (RCR) | payer MEDICARE, SELFPAY | END 2024-06-18 09:38 | disposition home or self-care (01) | LOC: MM 00:38 | PROVIDERS: PCP Family Medicine; Visit Provider Internal Medicine | DX: Z51.81 Encounter for therapeutic drug level monitoring (principal); Z79.01 Long term (current) use of anticoagulants; I48.91 Unspecified atrial fibrillation ==

== ENCOUNTER 2024-06-04 00:33 | Outpatient (REF) | payer MEDICARE, SELFPAY ==
[2024-06-04 09:33] LABS: Anion Gap 15.6; BUN Creatinine Ratio 10.5; Calcium 8.7 mg/dL (8.5-10.1); Carbon Dioxide 28.8 mmol/L (21.0-32.0); Chloride 95 mmol/L (98-107); Estimated GFR (African America 15 (>=60); Estimated GFR (Non-African Ame 12 (>=60); Glucose 138 mg/dL (74-106); Potassium 4.4 mmol/L (3.5-5.1); Sodium 135 mmol/L (136-145)
== END 2024-06-04 00:34 | disposition home or self-care (01) ==
LOC: LAB 00:33
PROVIDERS: Visit Provider Nurse Practitioner Family
DX: A41.9 Sepsis, unspecified organism (principal); N18.4 Chronic kidney disease, stage 4 (severe)
CPT/HCPCS: 36415; 80048

== ENCOUNTER 2024-06-16 07:15 | Outpatient (REF) | payer MEDICARE, SELFPAY ==
[2024-06-16 09:33] LABS: Basophils Absolute Auto 0.1 10^3/uL (0.0-0.1); Basophils Percent Auto 0.3 % (0.2-2.0); Eosinophils Absolute Auto 0.5 10^3/uL (0.0-0.7); Eosinophils Percent Auto 2.6 % (0.9-7.0); Hematocrit 37.3 % (42.0-54.0); Hemoglobin 11.4 g/dL (14.0-18.0); Immature Granulocytes Pct Auto 0.5 % (0.0-0.5); Lymphocytes Absolute Auto 2.9 10^3/uL (1.2-3.8); Lymphocytes Percent Auto 15.7 % (20.5-60.0); Mean Corpuscular HGB Conc 30.6 g/dL (29.9-35.2); Mean Corpuscular Hemoglobin 28.2 pg (25.9-34.0); Mean Corpuscular Volume 92.3 fL (80.0-94.0); Mean Platelet Volume 10.7 fL (9.5-13.5); Monocytes Absolute Auto 1.4 10^3/uL (0.3-0.8); Monocytes Percent Auto 7.8 % (1.7-12.0); Neutrophils Absolute Auto 13.3 10^3/uL (1.4-6.5); Neutrophils Percent Auto 73.1 % (43.0-75.0); Platelet Count 270 10^3/uL (150-450); Red Blood Count 4.04 10^6/uL (4.70-6.10); Red Cell Distribution Width 17.5 % (11.0-15.0); White Blood Count 18.3 10^3/uL (4.0-11.0)
== END 2024-06-16 07:16 | disposition home or self-care (01) ==
LOC: LAB 07:15
PROVIDERS: Visit Provider Family Medicine
DX: A41.9 Sepsis, unspecified organism (principal)
CPT/HCPCS: 36415; 85025

== ENCOUNTER 2024-06-16 16:02 | Emergency (ER) | payer MEDICARE, SELFPAY ==
[2024-06-16] VITALS (19 sets, daily range): BP systolic 93–105; BP diastolic 57–62; PULSE 65–93; TEMP 36.7–38.9; O2SAT 78–100; BMI 31.4
--- NOTE | 2024-06-16 16:16 | CT_ITS ---
The [address] [address] Patient Name: ADWOA PORTER MRN: [id number] date: 1955 Sex: M Assigned Patient Location: ER Current Patient Location: ER Accession/Order Number: [id number] Exam Date: 06/16/2024 16:45 Report Date: 06/16/2024 17:20 At the request of: ALMA DELIA CHAVIS Procedure: CT stroke head/brain wo con EXAMINATION: CT stroke head/brain wo con HISTORY: Altered mental status COMPARISON: 11/01/2023 TECHNIQUE: CT head without contrast. Dose reduction techniques were achieved by using: automated exposure control and/or adjustment of mA and /or kV according to patient size and/or use of iterative reconstruction technique. FINDINGS: Intraparenchymal hematoma right medial temporal lobe measuring 40 x 26 mm in the axial and 24 mm in the craniocaudal dimension. Surrounding edema, mild mass effect. Intraventricular hemorrhage also noted. Stable mild ventriculomegaly. No midline shift or pathologic extra-axial fluid collections. 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 CT/CT stroke head/brain wo con IMPRESSION: Moderate size intraparenchymal hematoma at the medial right temporal lobe with surrounding edema and mild mass effect. No midline shift. Small amount of intraventricular hemorrhage also noted. The ventricles are stable in size, without overt hydrocephalus. Critical results were NOTIFIED by TELEPHONE BY Dr. Debora Sr to Alma Delia Chavis At 06/16/2024 5:14 PM EDT. Electronically authenticated by: DEBORA SR Date: 06/16/2024 17:20
--- NOTE | 2024-06-16 16:16 | ECG_ITS ---
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
--- NOTE | 2024-06-16 16:16 | XR_ITS ---
[address] [address] Patient Name: ADWOA PORTER MRN: [id number] date: 1955 Sex: M Assigned Patient Location: ER Current Patient Location: ER Accession/Order Number: [id number] Exam Date: 06/16/2024 16:45 Report Date: 06/16/2024 19:18 At the request of: ALMA DELIA CHAVIS Procedure: XR chest 1V EXAM: XR chest 1V HISTORY: Altered mental status COMPARISON: 05/15/2024 TECHNIQUE: Chest X-ray AP, 1 view FINDINGS: Support devices: Right jugular approach central venous catheter terminates near the cavoatrial junction. Left-sided AICD with distal lead overlying right atrium, right ventricle and coronary sinus. Lungs/pleura: No pneumothorax. Left pleural effusion with left lower lobe consolidation. Heart and mediastinum: Cardiomegaly. Pericardial effusion cannot be excluded. Bones: No acute abnormality identified. XR/XR chest 1V Impression: Cardiomegaly.Pericardial effusion cannot be excluded.Left pleural effusion with left lower lobe consolidation. Chest CT is recommended if clinically warranted. Electronically authenticated by: JULIA DOUGLAS Date: 06/16/2024 19:18
--- NOTE | 2024-06-16 16:29 | ED.GENADUL1 ---
HPI HPI - General Adult General Chief complaint: Altered Mental Status Stated complaint: Altered Mental Status Time Seen by Provider: 06/16/24 16:16 Source: caregiver Mode of arrival: ambulance Limitations: altered mental status History of Present Illness HPI narrative: Patient is a 68-year-old male who presents to the emergency department by ambulance from the [facility] where he is a resident for evaluation of increasing altered mental status over the last several days. Staff report that they are concerned he is getting septic as he has a history of sepsis. He apparently also has end-stage renal disease requiring dialysis. On arrival to the ER, patient is noted to be febrile, snf reported that the patient had felt warm but they did not have an elevated temperature for him. intermediate reports that the patient was shaking. Patient denies pain, but he otherwise does not participate in the history. Related Data Home Medications ?Medication ?Instructions ?Recorded ?Confirmed aspirin 81 mg tablet,delayed 81 mg PO DAILY 05/24/23 04/07/24 release (Adult Low Dose Aspirin) atorvastatin 80 mg tablet 80 mg PO QPM 05/24/23 04/07/24 hydrocodone 5 mg-acetaminophen 325 1 tab PO Q8H PRN pain, moderate 05/24/23 04/07/24 mg tablet levothyroxine 50 mcg tablet 50 mcg PO DAILY 05/24/23 04/07/24 cyanocobalamin (vitamin B-12) 1,000 mcg PO DAILY 06/02/23 04/07/24 1,000 mcg tablet,extended release nitroglycerin 0.4 mg sublingual 0.4 mg sublingual Q5M PRN chest 06/02/23 03/21/24 tablet pain bumetanide 2 mg tablet 2 mg PO BID 01/28/24 04/07/24 heparin, porcine (PF) 10 unit/mL 10 unit IV TID PRN IV line flush 01/28/24 03/21/24 intravenous syringe (Heparin Lock Flush (Porcine) (PF)) insulin lispro 100 unit/mL 1 sliding scale dose subcut 01/28/24 04/07/24 subcutaneous pen (Humalog KwikPen USEASDIRECTD (U-100) Insulin) sodium chloride 0.9 % (flush) 10 ml IV TID 01/28/24 04/07/24 (Normal Saline Flush 0.9 % injection syringe) Lactobacillus rhamnosus GG 10 1 cap PO DAILY 03/21/24 04/07/24 billion cell capsule (Culturelle) acetaminophen 325 mg capsule 650 mg PO Q6H PRN pain 03/21/24 04/07/24 albuterol sulfate 0.63 mg/3 mL 0.63 mg inhalation Q6H 03/21/24 03/21/24 solution for nebulization albuterol sulfate 2.5 mg/3 mL 2.5 mg inhalation Q4H PRN 03/21/24 04/07/24 (0.083 %) solution for nebulization shortness of breath or wheezing albuterol sulfate 90 mcg/actuation 2 inh inhalation Q4H PRN shortness 03/21/24 04/07/24 aerosol inhaler of breath or wheezing budesonide-formoterol HFA 160 2 inh inhalation BID 03/21/24 04/07/24 mcg-4.5 mcg/actuation aerosol inhaler calcium acetate 667 mg tablet 667 mg PO TID 03/21/24 04/07/24 carvedilol 3.125 mg tablet 3.125 mg PO BID 03/21/24 04/07/24 darbepoetin laureano in polysorbat 60 60 mcg subcut QWEEK 03/21/24 04/07/24 mcg/mL in polysorbate injection (Aranesp) doxycycline monohydrate 100 mg 100 mg PO BID 03/21/24 03/21/24 capsule folic acid 1 mg tablet 1 mg PO DAILY 03/21/24 04/07/24 gabapentin 100 mg capsule 200 mg PO BID 03/21/24 04/07/24 guaifenesin 600 mg tablet, 600 mg PO BID 03/21/24 03/21/24 extended release 12 hr (Mucinex) insulin glargine 100 unit/mL (3 8 unit subcut DAILY 03/21/24 04/07/24 mL) subcutaneous pen loperamide 2 mg capsule 2 mg PO Q6H PRN loose stool 03/21/24 04/07/24 midodrine 10 mg tablet 10 mg PO TID 03/21/24 04/07/24 nystatin 100,000 unit/gram topical 1 applic topical QID 03/21/24 04/07/24 powder omeprazole 20 mg capsule,delayed 20 mg PO DAILY 03/21/24 04/07/24 release tramadol 50 mg tablet 50 mg PO BID 03/21/24 04/07/24 zinc oxide 1 applic topical QID 03/21/24 03/21/24 Allergies Allergy/AdvReac Type Severity Reaction Status Date / Time GABRIELA Inhibitors AdvReac Mild COUGH Verified 03/21/24 11:17 Opioid HPI Opioid Management Most Recent Opioid Data: Last Pain Scale 8 05/15/24 14:29 Last Pain Intensity 4 01/19/24 10:42 Last MAR Pain Assessment 06/16/24 16:34 Ur Phencyclidine Scrn Negative (NEGATIVE) 11/01/23 22:16 Review of Systems ROS Constitutional Reports: fever and chills Ears, nose, mouth, and throat Denies: nasal congestion Cardiovascular Denies: chest pain Respiratory Denies: shortness of breath Gastrointestinal Denies: nausea, vomiting or diarrhea Integumentary/Breast Denies: rash Neurological Denies: weakness in extremities or dizziness Hematologic/Lymphatic Denies: easy bruising or easy bleeding PFSH [facility] Medical History (Updated 06/16/24 @ 18:21 by KAILEY Castillo) Dialysis patient ?Z99.2 - Dependence on renal dialysis (ICD-10) Open wound of finger of right hand ?S61.209A - Unspecified open wound of unspecified finger without damage to nail, initial encounter (ICD-10) Chronic wound of extremity Cellulitis and abscess of foot ?L03.119 - Cellulitis of unspecified part of limb (ICD-10) ?L02.619 - Cutaneous abscess of unspecified foot (ICD-10) Hypokalemia ?E87.6 - Hypokalemia (ICD-10) Hyponatremia ?E87.1 - Hypo-osmolality and hyponatremia (ICD-10) Generalized weakness ?R53.1 - Weakness (ICD-10) Chronic wound of extremity Dyspnea ?R06.00 - Dyspnea, unspecified (ICD-10) CKD (chronic kidney disease) stage 4, GFR 15-29 ml/min ?N18.4 - Chronic kidney disease, stage 4 (severe) (ICD-10) HLD (hyperlipidemia) ?E78.5 - Hyperlipidemia, unspecified (ICD-10) Cardiac defibrillator in place ?Z95.810 - Presence of automatic (implantable) cardiac defibrillator (ICD-10) Pacemaker ?Z95.0 - Presence of cardiac pacemaker (ICD-10) COPD (chronic obstructive pulmonary disease) ?J44.9 - Chronic obstructive pulmonary disease, unspecified (ICD-10) CAD (coronary artery disease) ?I25.10 - Atherosclerotic heart disease of [place] coronary artery without angina pectoris (ICD-10) Benign essential hypertension ?I10 - Essential (primary) hypertension (ICD-10) Anemia in chronic kidney disease ?N18.9 - Chronic kidney disease, unspecified (ICD-10) ?D63.1 - Anemia in chronic kidney disease (ICD-10) Paroxysmal atrial fibrillation ?I48.0 - Paroxysmal atrial fibrillation (ICD-10) Type 2 diabetes mellitus with hyperglycemia ?E11.65 - Type 2 diabetes mellitus with hyperglycemia (ICD-10) Hypothyroid ?E03.9 - Hypothyroidism, unspecified (ICD-10) Chronic kidney disease, stage 3a ?N18.31 - Chronic kidney disease, stage 3a (ICD-10) Chronic HFrEF (heart failure with reduced ejection fraction) ?I50.22 - Chronic systolic (congestive) heart failure (ICD-10) Surgical History (Updated 03/21/24 @ 11:38 by Ashtyn Keys NP) Status post peripherally inserted central catheter (PICC) central line placement ?Z95.828 - Presence of other vascular implants and grafts (ICD-10) H/O foot surgery (01/17/24) ?Z98.890 - Other specified postprocedural states (ICD-10) History of appendectomy ?Z90.49 - Acquired absence of other specified parts of digestive tract (ICD-10) Family History Mother Family history of CHF (congestive heart failure) Brother Family history of cancer Social History Within the past year, how often did you have a drink containing alcohol: never Within the past year, how often did you have six or more drinks on one occasion: never Score interpretation: A score less than 4 is consistent with normal alcohol consumption. 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 Known occupational exposures/hazards: No Highest level of school completed/degree received: high school graduate Do you want help with school or training: No Are you now , , , , never or living with a partner: living with partner In a typical week, how many times do you talk on the telephone with family, friends, or neighbors: 3 or more times per week How often do you get together with friends or relatives: 3 or more times per week How often do you attend sabianist or moravian services: never Do you belong to any clubs or organizations such as sabianist groups unions, fraternal or athletic groups, or school groups: no Total score: 2 Score interpretation: A score of greater than or equal to 2 indicates the lowest level of social isolation. Little interest or pleasure in doing things: not at all Feeling down, depressed, or hopeless: not at all Feel stressed/tense/nervous/anxious/difficulty sleeping: not at all Due to disability, difficulty making decisions: No Do you think of yourself as: straight/heterosexual Gender Identity: male Exam Narrative Exam Narrative: Gen.: Awake, alert, in no distress Head: Normocephalic, atraumatic ENT: Moist mucous membranes Respiratory: No respiratory distress, lungs clear bilaterally; dialysis catheter noted in the right upper chest with mild redness at the insertion, dressing overlying Cardio: Regular rate and rhythm Gastrointestinal: Abdomen is soft, nondistended and nontender to palpation Extremities: Mild tremors of the extremity Psych: Normal mood and affect Neuro: Nonverbal, shakes his head in response to questions, no facial drooping noted Skin: Warm, dry, intact Constitutional Vital Signs, click to edit/add: Last Vital Signs Temp 100.4 F 06/16/24 18:02 Pulse 86 06/16/24 18:00 Resp 24 H 06/16/24 18:00 BP 94/57 06/16/24 18:00 Pulse Ox 94 L 06/16/24 18:00 O2 Del Method Room Air 06/16/24 17:24 O2 Flow Rate 3 06/16/24 16:07 Course Vital Signs Vital signs: Vital Signs Temperature 98.1 F 06/16/24 16:07 Pulse Rate 83 06/16/24 16:07 Respiratory Rate 24 H 06/16/24 16:07 Blood Pressure 105/62 06/16/24 16:07 Pulse Oximetry 98 06/16/24 16:07 Oxygen Delivery Method Nasal Cannula 06/16/24 16:07 Oxygen Delivery Flow Rate 3 06/16/24 16:07 Temperature 100.4 F 06/16/24 18:02 Pulse Rate 86 06/16/24 18:00 Respiratory Rate 24 H 06/16/24 18:00 Blood Pressure 94/57 06/16/24 18:00 Pulse Oximetry 94 L 06/16/24 18:00 Oxygen Delivery Method Room Air 06/16/24 17:24 Oxygen Delivery Flow Rate 3 06/16/24 16:07 Medical Decision Making MDM Narrative Medical decision making narrative: On arrival to the emergency department, it was not reported by snf that the patient had a fall 5 days ago. Daughter arrived to the bedside and stated that the patient apparently had a fall 5 days ago and she states he has not had his baseline mentation since that time. In the emergency department, patient is hemodynamically stable although febrile. He was medicated with Tylenol, IV fluids. COVID test is negative. Blood cultures are pending. Patient found to have leukocytosis and elevated lactic acid so Rocephin was given for antibiotic coverage. Catheter urine specimen with no significant evidence of UTI. CT of the brain was performed with chest x-ray. The radiologist called to state that the patient has a 4 cm right temporal lobe intraparenchymal hemorrhage with mild mass effect and no midline shift. Patient was sent back for additional CT of the cervical spine, pelvis x-ray. I discussed the case with the patient's daughter who request transfer to [facility]. Patient was accepted by Dr. Simon for trauma surgery. He requested Kcentra be given. This was ordered for the patient and he will be sent by [facility] to [facility]. Patient with a GCS of 10 at time of transfer Critical care time 35 minutes Medical Records Medical records reviewed: Yes I reviewed the patient's medical records Lab Data Lab results reviewed: Yes I reviewed the patient's lab results Labs: Lab Results 06/16/24 06/16/24 Range/Units 16:20 16:42 WBC 19.9 H (4.0-11.0) 10^3/uL RBC 4.01 L (4.70-6.10) 10^6/uL Hgb 11.3 L (14.0-18.0) g/dL Hct 36.7 L (42.0-54.0) % MCV 91.5 (80.0-94.0) fL MCH 28.2 (25.9-34.0) pg MCHC 30.8 (29.9-35.2) g/dL RDW 17.8 H (11.0-15.0) % Plt Count 264 (150-450) 10^3/uL MPV 9.7 (9.5-13.5) fL Neut % (Auto) 78.5 H (43.0-75.0) % Lymph % (Auto) 12.6 L (20.5-60.0) % [place] % (Auto) 6.3 (1.7-12.0) % Eos % (Auto) 1.7 (0.9-7.0) % Baso % (Auto) 0.3 (0.2-2.0) % Neut # (Auto) 15.6 H (1.4-6.5) 10^3/uL Lymph # (Auto) 2.5 (1.2-3.8) 10^3/uL [place] # (Auto) 1.3 H (0.3-0.8) 10^3/uL Eos # (Auto) 0.3 (0.0-0.7) 10^3/uL Baso # (Auto) 0.1 (0.0-0.1) 10^3/uL Abs Immat Gran (auto) 0.12 H (0.00-0.03) 10^3/uL Imm/Tot Granulo (auto) 0.6 H (0.0-0.5) % ESR >130 H (<=20) mm/hr PT 12.2 H (9.0-11.6) sec INR 1.17 VBG pH 7.438 H (7.330-7.430) VBG pCO2 42.7 (40.0-52.0) mmHg Sodium 130 L (136-145) mmol/L Potassium 4.4 (3.5-5.1) mmol/L Chloride 95 L (98-107) mmol/L Carbon Dioxide 28.6 (21.0-32.0) mmol/L Anion Gap 10.8 BUN 27.0 H (7.0-18.0) mg/dL Creatinine 3.67 H (0.70-1.30) mg/dL Est GFR ( Amer) 20 L (>=60) Est GFR (Non-Af Amer) 17 L (>=60) BUN/Creatinine Ratio 7.4 Glucose 173 H (74-106) mg/dL Lactate 2.0 (0.4-2.0) mmol/L Calcium 8.1 L (8.5-10.1) mg/dL Total Bilirubin 0.6 (0.2-1.0) mg/dL AST 33 (15-37) U/L ALT 27 (16-63) U/L Alkaline Phosphatase 212 H (46-116) U/L Troponin I High Sens 42.2 (4.0-76.1) pg/mL C-Reactive Protein 3.38 H (<=0.50) mg/dL Total Protein 7.8 (6.4-8.2) g/dL Albumin 2.0 L (3.4-5.0) g/dL Globulin 5.8 g/dL Albumin/Globulin Ratio 0.3 Urine Color Dk. yellow (YELLOW) Urine Clarity Clear (CLEAR) Urine pH 5.0 (5.0-9.0) Ur Specific [place] 1.025 (1.005-1.025) Urine Protein 30 A (NEG/TRACE) mg/dL Urine Glucose (UA) Negative (NEGATIVE) mg/dL Urine Ketones Trace A (NEGATIVE) mg/dL Urine Occult Blood Large A (NEGATIVE) Urine Nitrite Negative (NEGATIVE) Urine Bilirubin Small A (NEGATIVE) Urine Urobilinogen 0.2 (0.2-1.0) EU/dL Ur Leukocyte Esterase Trace A (NEGATIVE) Urine RBC 2-5 A (0-2) #/HPF Urine WBC 2-5 A (NONE SEEN) #/HPF Ur Squamous Epith Cells Few A (NONE/RARE) #/LPF Urine Crystals Seen A (None Seen) #/HPF Amorphous Sediment Few Urine Bacteria Small A (NONE SEEN) #/HPF Urine Casts Seen A (NONE SEEN) #/LPF Hyaline Casts Rare Urine Mucus None seen (NONE SEEN) Ur Culture Indicated? Yes SARS-CoV-2 Ag (CV2AG) Negative (NEGATIVE) Imaging Data CT scan - head: Attestation: I have reviewed the pertinent imaging results. Radiologist's impression: ITS Impressions Brain CT 06/16/24 16:16 IMPRESSION: Moderate size intraparenchymal hematoma at the medial right temporal lobe with surrounding edema and mild mass effect. No midline shift. Small amount of intraventricular hemorrhage also noted. The ventricles are stable in size, without overt hydrocephalus. Critical results were NOTIFIED by TELEPHONE BY Dr. Debora Sr to Ruby Collazo At 06/16/2024 5:14 PM EDT. Electronically authenticated by: DEBORA SR Date: 06/16/2024 17:20 ECG Data Attestation: I personally reviewed and interpreted this ECG as follows: (Electronic ventricular pacemaker at a rate of 87, no acute ST elevation or ectopy. EKG reviewed by attending physician) Critical Care Time Critical Care Time Critical Care Time: Yes Total Critical Care Time: 35 Attestation: 35 min of critical care time for diagnosis of intraparenchymal hemorrhage, likely early sepsis and transferred to a tertiary care facility by [facility] Discharge Plan Discharge Chief Complaint: Altered Mental Status Clinical Impression: Altered mental status, Leukocytosis, Intracranial hemorrhage, Fever Patient Disposition: [facility] Time of Disposition Decision: 18:20 Discharge Location: [facility] Condition: Fair Mode of Transportation: [facility] Prescriptions / Home Meds: No Action atorvastatin 80 mg tablet 80 mg PO QPM aspirin [Adult Low Dose Aspirin] 81 mg tablet,delayed release (DR/EC) 81 mg PO DAILY hydrocodone-acetaminophen 5-325 mg tablet 1 tab PO Q8H PRN (Reason: pain, moderate) levothyroxine 50 mcg tablet 50 mcg PO DAILY bumetanide 2 mg tablet 2 mg PO BID heparin, porcine (PF) [Heparin LockFlush(Porcine)(PF)] 10 unit/mL syringe 10 unit IV TID PRN (Reason: IV line flush) Patient Comments: post medical research tech insulin lispro [Humalog KwikPen Insulin] 100 unit/mL insulin pen 1 sliding scale dose subcut USEASDIRECTD sodium chloride 0.9 % (flush) [Normal Saline Flush] Syringe 10 ml IV TID Rx Instructions: administer before and after IV drug administration as part of [facility] protocol carvedilol 3.125 mg tablet 3.125 mg PO BID Rx Instructions: must administer with a meal/food gabapentin 100 mg capsule 200 mg PO BID acetaminophen 325 mg capsule 650 mg PO Q6H PRN (Reason: pain) albuterol sulfate 90 mcg/actuation HFA aerosol inhaler 2 inh inhalation Q4H PRN (Reason: shortness of breath or wheezing) albuterol sulfate 0.63 mg/3 mL solution for nebulization 0.63 mg inhalation Q6H albuterol sulfate 2.5 mg /3 mL (0.083 %) solution for nebulization 2.5 mg inhalation Q4H PRN (Reason: shortness of breath or wheezing) Aranesp (in polysorbate) 60 mcg/mL solution 60 mcg subcut QWEEK budesonide-formoterol 160-4.5 mcg/actuation HFA aerosol inhaler 2 inh inhalation BID calcium acetate 667 mg tablet 667 mg PO TID Culturelle 10 billion cell capsule 1 cap PO DAILY doxycycline monohydrate 100 mg capsule 100 mg PO BID folic acid 1 mg tablet 1 mg PO DAILY insulin glargine 100 unit/mL (3 mL) insulin pen 8 unit subcut DAILY loperamide 2 mg capsule 2 mg PO Q6H PRN (Reason: loose stool) midodrine 10 mg tablet 10 mg PO TID Rx Instructions: do not give last dose of day after 6PM or within 4 hrs of bedtime guaifenesin [Mucinex] 600 mg tablet extended release 12hr 600 mg PO BID nystatin 100,000 unit/gram powder 1 applic topical QID omeprazole 20 mg capsule,delayed release(DR/EC) 20 mg PO DAILY tramadol 50 mg tablet 50 mg PO BID zinc oxide Ointment 1 applic topical QID nitroglycerin 0.4 mg tablet, sublingual 0.4 mg sublingual Q5M PRN (Reason: chest pain) cyanocobalamin (vitamin B-12) 1,000 mcg tablet extended release 1,000 mcg PO DAILY Print Language: Azeri Referrals: Physician,Non-Staff, MD [Primary Care Provider] - 1 week
[2024-06-16] MEDS: 0.9 % SODIUM CHLORIDE 1,000 ML 999 ML IV (16:31)
[2024-06-16] MEDS: ACETAMINOPHEN 500 MG TABLET 1000 MG PO (16:34)
[2024-06-16 17:02] LABS: PCO2 VBG 42.7 mmHg (40.0-52.0); pH VBG 7.438 (7.330-7.430)
[2024-06-16 17:03] LABS: Basophils Absolute Auto 0.1 10^3/uL (0.0-0.1); Basophils Percent Auto 0.3 % (0.2-2.0); Eosinophils Absolute Auto 0.3 10^3/uL (0.0-0.7); Eosinophils Percent Auto 1.7 % (0.9-7.0); Hematocrit 36.7 % (42.0-54.0); Hemoglobin 11.3 g/dL (14.0-18.0); Immature Granulocytes Abs Auto 0.12 10^3/uL (0.00-0.03); Immature Granulocytes Pct Auto 0.6 % (0.0-0.5); Lymphocytes Absolute Auto 2.5 10^3/uL (1.2-3.8); Lymphocytes Percent Auto 12.6 % (20.5-60.0); Mean Corpuscular HGB Conc 30.8 g/dL (29.9-35.2); Mean Corpuscular Hemoglobin 28.2 pg (25.9-34.0); Mean Corpuscular Volume 91.5 fL (80.0-94.0); Mean Platelet Volume 9.7 fL (9.5-13.5); Monocytes Absolute Auto 1.3 10^3/uL (0.3-0.8); Monocytes Percent Auto 6.3 % (1.7-12.0); Neutrophils Absolute Auto 15.6 10^3/uL (1.4-6.5); Neutrophils Percent Auto 78.5 % (43.0-75.0); Platelet Count 264 10^3/uL (150-450); Red Blood Count 4.01 10^6/uL (4.70-6.10); Red Cell Distribution Width 17.8 % (11.0-15.0); White Blood Count 19.9 10^3/uL (4.0-11.0)
[2024-06-16 17:08] LABS: Erythrocyte Sedimentation Rate >130 mm/hr (<=20)
[2024-06-16 17:09] LABS: Bilirubin Urine SMALL (NEGATIVE); Blood Urine LARGE (NEGATIVE); Clarity Urine CLEAR (CLEAR); Color Urine DK. YELLOW (YELLOW); Glucose Urine UA NEGATIVE (NEGATIVE); Ketones Urine TRACE mg/dL (NEGATIVE); Leukocyte Esterase Urine TRACE (NEGATIVE); Nitrite Urine NEGATIVE (NEGATIVE); Protein Urine 30 mg/dL (NEG/TRACE); Specific Gravity Urine 1.025 (1.005-1.025); Urobilinogen Urine 0.2 EU/dL (0.2-1.0)
[2024-06-16 17:11] LABS: Urine Microscopic Indicated YES
[2024-06-16 17:15] LABS: INR 1.17; Prothrombin Time 12.2 sec (9.0-11.6)
[2024-06-16 17:16] LABS: Internal Control Within Normal Limits; SARS-CoV-2 Ag NEGATIVE (NEGATIVE)
[2024-06-16 17:21] LABS: Alanine Aminotransferase 27 U/L (16-63); Albumin Globulin Ratio 0.3; Alkaline Phosphatase 212 U/L (46-116); Anion Gap 10.8; Aspartate Amino Transferase 33 U/L (15-37); BUN Creatinine Ratio 7.4; Bilirubin Total 0.6 mg/dL (0.2-1.0); C Reactive Protein 3.38 mg/dL (<=0.50); Calcium 8.1 mg/dL (8.5-10.1); Carbon Dioxide 28.6 mmol/L (21.0-32.0); Chloride 95 mmol/L (98-107); Estimated GFR (African America 20 (>=60); Estimated GFR (Non-African Ame 17 (>=60); Globulin 5.8 g/dL; Glucose 173 mg/dL (74-106); Potassium 4.4 mmol/L (3.5-5.1); Sodium 130 mmol/L (136-145); Total Protein 7.8 g/dL (6.4-8.2); Troponin I High Sensitivity 42.2 pg/mL (4.0-76.1)
[2024-06-16 17:30] LABS: Amorphous Sediment Urine FEW; Bacteria Urine SMALL #/HPF (NONE SEEN); Cast Seen? SEEN #/LPF (NONE SEEN); Crystals Seen? Seen #/HPF (None Seen); Hyaline Casts Urine RARE; Mucus Urine NONE SEEN (NONE SEEN); Squamous Epithelial Cell Urine FEW #/LPF (NONE/RARE); Urine Culture Indicated YES
--- NOTE | 2024-06-16 17:36 | XR_ITS ---
[address] [address] Patient Name: ADWOA PORTER MRN: [id number] date: 1955 Sex: M Assigned Patient Location: ER Current Patient Location: Accession/Order Number: [id number] Exam Date: 06/16/2024 17:42 Report Date: 06/16/2024 18:52 At the request of: ALMA DELIA CHAVIS Procedure: XR pelvis 1-2V IMAGES REVIEWED: XR pelvis 1-2V COMPARISON: 11/01/2023. CLINICAL INDICATION: fall FINDINGS/IMPRESSION: 1. No radiographic evidence of acute osseous abnormality of the pelvis. 2. Mild degenerative change bilateral hips. 3. Moderate degenerative change lower lumbar spine. 4. Peripheral arterial disease. Electronically authenticated by: RANCHO FLANNERY Date: 06/16/2024 18:52
--- NOTE | 2024-06-16 17:36 | CT_ITS ---
The [address] [address] Patient Name: ADWOA PORTER MRN: [id number] date: 1955 Sex: M Assigned Patient Location: ER Current Patient Location: ER Accession/Order Number: [id number] Exam Date: 06/16/2024 17:42 Report Date: 06/16/2024 18:57 At the request of: ALMA DELIA CHAVIS Procedure: CT cervical spine wo con EXAM: CT cervical spine wo con HISTORY: The patient fell with mental status change. TECHNIQUE: Axial CT scans through the cervical spine were obtained without contrast administration. Sagittal and coronal reconstruction images were obtained. A trauma Dose reduction techniques were achieved by using: automated exposure control and/or adjustment of mA and /or kV according to patient size and/or the use of an iterative reconstruction technique. COMPARISON: Head CT on 06/16/2024 at 4:[address] cervical spine 11/01/2023. FINDINGS: No acute fracture or posttraumatic malalignment is shown. Moderate to severe left facet arthropathy from C2 to C5 with moderate stenosis of the left C3-C4 and C4-C5 neural foramina. Decreased disc height and discovertebral complexes without central spinal stenosis from C5 to T1. Mild to moderate stenosis of the left C5-C6 and C6-C7 neural foramina secondary to decreased disc height and uncovertebral hypertrophy. The prevertebral soft tissue space appears normal. An acute hemorrhage in the medial right temporal lobe is again demonstrated. A subcentimeter nodule left thyroid lobe. The visualized neck shows no adenopathy. Visualized lung apices are clear. CT/CT cervical spine wo con IMPRESSION: No acute fracture or posttraumatic malalignment. Discovertebral degenerative changes without central spinal stenosis. Moderate stenosis of the left C3-C4 and C4-C5 neural foramina secondary to moderate to severe left facet hypertrophy. Acute intraparenchymal hemorrhage in the medial right temporal lobe is again noted. Please refer to the CT of the head. Electronically authenticated by: MC CANCINO Date: 06/16/2024 18:57
[2024-06-16] MEDS: CEFTRIAXONE 1,000 MG in 0.9 % SODIUM CHLORIDE 50 ML 100 MG IV (17:58)
[2024-06-16] MEDS: HUM PROTHROMBIN CPLX IV (18:22)
[2024-06-16] MEDS: [UNRECOGNIZED DRUG - OTHER] IV (18:22)
[2024-06-18 02:46] LABS: A. calcoaceticus-baumannii Cpx NOT DETECTED (NOT DETECTE); Bacteroides fragilis NOT DETECTED (NOT DETECTE); Candida albicans NOT DETECTED (NOT DETECTE); Candida auris NOT DETECTED (NOT DETECTE); Candida glabrata NOT DETECTED (NOT DETECTE); Candida krusei NOT DETECTED (NOT DETECTE); Candida parapsilosis NOT DETECTED (NOT DETECTE); Candida tropicalis NOT DETECTED (NOT DETECTE); Cryptococcus neoformans/gattii NOT DETECTED (NOT DETECTE); Enterobacter cloacae complex NOT DETECTED (NOT DETECTE); Enterobacterales NOT DETECTED (NOT DETECTE); Enterococcus faecalis NOT DETECTED (NOT DETECTE); Enterococcus faecium NOT DETECTED (NOT DETECTE); Haemophilus influenzae NOT DETECTED (NOT DETECTE); Klebsiella aerogenes NOT DETECTED (NOT DETECTE); Klebsiella pneumoniae group NOT DETECTED (NOT DETECTE); Listeria monocytogenes NOT DETECTED (NOT DETECTE); Neisseria meningitidis NOT DETECTED (NOT DETECTE); Proteus spp. NOT DETECTED (NOT DETECTE); Pseudomonas aeruginosa NOT DETECTED (NOT DETECTE); Salmonella spp. NOT DETECTED (NOT DETECTE); Serratia marcescens NOT DETECTED (NOT DETECTE); Staphylococcus epidermidis NOT DETECTED (NOT DETECTE); Staphylococcus lugdunensis NOT DETECTED (NOT DETECTE); Staphylococcus spp. NOT DETECTED (NOT DETECTE); Stenotrophomonas maltophilia NOT DETECTED (NOT DETECTE); Streptococcus agalactiae NOT DETECTED (NOT DETECTE); Streptococcus pneumoniae NOT DETECTED (NOT DETECTE); Streptococcus pyogenes NOT DETECTED (NOT DETECTE); Streptococcus spp. NOT DETECTED (NOT DETECTE)
[2024-06-18 12:33] LABS: Source Blood
== END 2024-06-16 18:52 | disposition short-term general hospital (02) ==
PROVIDERS: Physician Assistant; Emergency Provider Emergency Medicine Emergency Medical Services
DX: S06.30AA Unspecified focal traumatic brain injury with loss of consciousness status unknown, initial encounter (principal); R41.82 Altered mental status, unspecified; R50.9 Fever, unspecified; D72.829 Elevated white blood cell count, unspecified; W19.XXXA Unspecified fall, initial encounter; N18.6 End stage renal disease; A41.9 Sepsis, unspecified organism; Z99.2 Dependence on renal dialysis; Z87.891 Personal history of nicotine dependence; Z20.822 Contact with and (suspected) exposure to COVID-19; Z95.810 Presence of automatic (implantable) cardiac defibrillator
CPT/HCPCS: 36415; 70450; 71045; 72125; 72170; 80053; 81001; 82800; 83605; 84484; 85025; 85610; 85652; 86140; 87040; 87077; 87086; 87150; 87811; 93005; 96361; 96365; 96375; 99285; J0696; J7168

== ENCOUNTER 2024-06-19 00:16 | Outpatient (RCR) | payer MEDICARE, SELFPAY | END 2024-07-18 09:18 | disposition home or self-care (01) | LOC: MM 00:16 | PROVIDERS: Visit Provider Internal Medicine | DX: Z51.81 Encounter for therapeutic drug level monitoring (principal); Z79.01 Long term (current) use of anticoagulants; I48.91 Unspecified atrial fibrillation ==

== ENCOUNTER 2024-07-21 00:53 | Outpatient (RCR) | payer MEDICARE, SELFPAY | END 2024-08-18 23:51 | disposition home or self-care (01) | LOC: MM 00:53 | PROVIDERS: Visit Provider Internal Medicine | DX: Z51.81 Encounter for therapeutic drug level monitoring (principal); Z79.01 Long term (current) use of anticoagulants; I48.91 Unspecified atrial fibrillation ==

== ENCOUNTER 2024-08-19 01:25 | Outpatient (RCR) | payer MEDICARE, SELFPAY | END 2024-09-18 23:29 | disposition home or self-care (01) | LOC: MM 01:25 | PROVIDERS: Visit Provider Internal Medicine | DX: Z51.81 Encounter for therapeutic drug level monitoring (principal); Z79.01 Long term (current) use of anticoagulants; I48.91 Unspecified atrial fibrillation ==

== ENCOUNTER 2024-09-19 10:48 | Outpatient (RCR) | payer MEDICARE, SELFPAY | END 2024-10-18 23:59 | disposition home or self-care (01) | LOC: MM 10:48 | PROVIDERS: Visit Provider Internal Medicine | DX: Z51.81 Encounter for therapeutic drug level monitoring (principal); Z79.01 Long term (current) use of anticoagulants; I48.91 Unspecified atrial fibrillation ==

== ENCOUNTER 2024-10-19 10:52 | Outpatient (RCR) | payer MEDICARE, SELFPAY | END 2024-11-18 09:36 | disposition home or self-care (01) | LOC: MM 10:52 | PROVIDERS: Visit Provider Internal Medicine | DX: Z51.81 Encounter for therapeutic drug level monitoring (principal); Z79.01 Long term (current) use of anticoagulants; I48.91 Unspecified atrial fibrillation ==

== ENCOUNTER 2024-11-20 00:20 | Outpatient (RCR) | payer MEDICARE, SELFPAY | END 2024-12-19 15:22 | disposition home or self-care (01) | LOC: MM 00:20 | PROVIDERS: Visit Provider Internal Medicine | DX: Z51.81 Encounter for therapeutic drug level monitoring (principal); Z79.01 Long term (current) use of anticoagulants; I48.91 Unspecified atrial fibrillation ==

== ENCOUNTER 2024-12-22 02:34 | Outpatient (RCR) | payer MEDICARE, SELFPAY | END 2025-01-16 10:51 | disposition home or self-care (01) | LOC: MM 02:34 | PROVIDERS: Visit Provider Internal Medicine | DX: Z51.81 Encounter for therapeutic drug level monitoring (principal); Z79.01 Long term (current) use of anticoagulants; I48.91 Unspecified atrial fibrillation ==

== ENCOUNTER 2025-01-18 08:12 | Outpatient (RCR) | payer MEDICARE, SELFPAY | END 2025-02-13 13:34 | disposition home or self-care (01) | LOC: MM 08:12 | PROVIDERS: Visit Provider Internal Medicine | DX: Z51.81 Encounter for therapeutic drug level monitoring (principal); Z79.01 Long term (current) use of anticoagulants; I48.91 Unspecified atrial fibrillation ==

== ENCOUNTER 2025-02-17 06:03 | Outpatient (RCR) | payer SELFPAY | END 2025-03-18 14:58 | disposition home or self-care (01) | LOC: MM 06:03 | PROVIDERS: Visit Provider Internal Medicine | DX: Z51.81 Encounter for therapeutic drug level monitoring (principal); Z79.01 Long term (current) use of anticoagulants; I48.91 Unspecified atrial fibrillation ==

== ENCOUNTER 2025-03-19 04:42 | Outpatient (RCR) | payer SELFPAY | END 2025-04-17 15:07 | disposition home or self-care (01) | LOC: MM 04:42 | PROVIDERS: Visit Provider Internal Medicine | DX: Z51.81 Encounter for therapeutic drug level monitoring (principal); Z79.01 Long term (current) use of anticoagulants; I48.91 Unspecified atrial fibrillation ==

== ENCOUNTER 2025-04-19 07:15 | Outpatient (RCR) | payer MEDICARE, SELFPAY | END 2025-04-21 10:13 | disposition home or self-care (01) | LOC: MM 07:15 | PROVIDERS: Visit Provider Internal Medicine | DX: I48.91 Unspecified atrial fibrillation (principal) ==